=== PATIENT | female | born 1955 | race African-American/Black ===

== ENCOUNTER 2021-04-18 17:32 | Emergency (ER) | payer OTHER, SELFPAY ==
[2021-04-18] VITALS (9 sets, daily range): BP systolic 111–156; BP diastolic 62–75; PULSE 76–77; RESP 18–23; O2SAT 92–96
--- NOTE | 2021-04-18 17:44 | PC.NURSE ---
patient currently at baseline. denies any complaints. denies SOB. states that she does not like her [facility]mate at the [facility] and does not want to be there or talk to her. room air at this time. rapid COVID test [employer], negative
--- NOTE | 2021-04-18 19:24 | ED.GENADULT ---
HPI - General Adult General Chief complaint: Unspecified Stated complaint: sent per [facility] staff for altered - resolved Time Seen by Provider: 04/18/21 18:52 Source: patient and RN notes reviewed History of Present Illness HPI narrative: 66-year-old female presented to the emergency department from a local care facility for evaluation. Facility was concerned that she was hypoxic. Patient denies any chest pain or shortness of breath. Patient states that her only complaint is her roommate and she wanted to come to the emergency department to get away from her roommate. Review of Systems Review of Systems: CONSTITUTIONAL: Denies fever, chills, or sweats. EYES: Denies visual changes, redness, or discharge. ENT: Denies rhinorrhea, congestion, sore throat, or otalgia. CARDIOVASCULAR: Denies chest pain, palpitations, or edema. RESPIRATORY: Denies cough or dyspnea. GASTROINTESTINAL: Denies abdominal pain, nausea, vomiting, or diarrhea. GENITOURINARY: Denies dysuria or hematuria. SKIN: Denies rash or itching. MUSCULOSKELETAL: Denies back pain, joint pain, or myalgia. NEUROLOGIC: Denies headache, numbness, or weakness. PSYCHIATRIC: Denies anxiety or depression. [facility] Family History Family History (Updated 09/30/14 @ 09:49 by DOCTOR UNKNOWN) Mother Family history of type 2 diabetes mellitus, Onset Age: 55 Patient's mother is Father Patient's father is , Onset Age: 58 Acute myocardial infarction, Onset Age: 58 Social History Social History Smoking status: Never smoker Second hand tobacco smoke exposure: No Alcohol intake: never Exam Narrative: APPEARANCE: Well appearing, no pain, no distress, well-nourished. HEAD: normocephalic, atraumatic. EYES: PERRLA/EOMI, conjunctivae clear. NOSE: Normal no drainage EARS:TMS clear with good light reflex. THROAT: Pharynx clear, no exudate. NECK: Supple. No adenopathy, no masses. RESPIRATORY: Airway patent, respirations nonlabored. Clear to auscultation bilaterally, no rales, rhonchi, wheezing. CARDIOVASCULAR: Regular rate and rhythm without murmurs rubs or gallops. ABDOMINAL: Soft, nontender, nondistended, normal bowel sounds MUSCULOSKELETAL: Moves all extremities. Strength/ROM intact NEURO: Alert. Cranial nerves II through XII intact. Good coordination SKIN: Warm, dry. Normal Color PSYCHIATRIC: Normal affect/mood. Course Course Emergency Course: Patient continues to deny any complaint other than her roommate. Patient was discharged back to facility. Vital Signs Vital signs: Vital Signs Pulse Rate 77 04/18/21 17:37 Respiratory Rate 19 04/18/21 17:37 Pulse Oximetry 95 04/18/21 17:37 Pulse Rate 76 04/18/21 20:50 Respiratory Rate 18 04/18/21 20:50 Blood Pressure 156/75 H 04/18/21 20:50 Pulse Oximetry 96 04/18/21 20:50 Medical Decision Making Vital Signs Vital Signs: Vital Signs Pulse Rate 77 04/18/21 17:37 Respiratory Rate 19 04/18/21 17:37 Pulse Oximetry 95 04/18/21 17:37 Pulse Rate 76 04/18/21 20:50 Respiratory Rate 18 04/18/21 20:50 Blood Pressure 156/75 H 04/18/21 20:50 Pulse Oximetry 96 04/18/21 20:50 Discharge Plan Discharge Clinical Impression: Examination, No complaints, Dementia Patient Disposition: Home, Self-Care Condition: Stable Instructions: Antibiotic Form Additional Instructions: Have close follow-up with your primary care physician. Prescriptions: No Action oxycodone [Roxicodone] 5 mg tablet 5 mg PO Q4H PRN (Reason: pain) Qty: 30 RF: 0 Follow-up/Referrals: PHYSICIAN NOT ON STAFF,NONSTAFF [Primary Care Provider] -
--- NOTE | 2021-04-18 20:02 | PC.NURSE ---
EMS ETA 2029.
--- NOTE | 2021-04-18 22:32 | PC.NURSE ---
arrived at 2039. EN
== END 2021-04-18 20:51 ==
PROVIDERS: Emergency Provider Emergency Medicine
DX: F03.90 Unspecified dementia, unspecified severity, without behavioral disturbance, psychotic disturbance, mood disturbance, and anxiety (principal)
CPT/HCPCS: 99281

== ENCOUNTER 2021-12-05 18:07 | Observation (INO) | payer OTHER, SELFPAY ==
--- NOTE | ~2021-12-05 | XR_ITS ---
XR chest 1V portable DATE: 12/05/2021 18:37 INDICATION: Dyspnea TECHNIQUE: Portable supine AP chest on 12/05/2021 at 1835 hours COMPARISON: None FINDINGS: Cardiomegaly. There is pulmonary vascular congestion and redistribution. There is prominenc e of the minor fissure consistent with subpleural edema. There are bilateral patellae central and low er lung zone infiltrates suggesting pulmonary edema. Pneumonia is not excluded. No pneumothorax. Aortic arch and descending thoracic aortic calcification. Surgical clips, left axillary region. Dextroscoliosis and degenerative spurring of the thoracic spine. Diffuse osteopenia. IMPRESSION: Cardiomegaly, congestive heart failure, pulmonary edema Reviewed, dictated and finalized at location A.
[2021-12-05 18:04] VITALS: BP 197/73; PULSE 94; RESP 16; TEMP 36.3; O2SAT 96
--- NOTE | 2021-12-05 18:09 | ECG_ITS ---
Measurements Intervals [place] Rate: 94 P: 63 MA: 214 QRS: -18 QRSD: 85 T: 102 QT: 333 QTc: 416 Interpretive Statements SINUS RHYTHM WITH FIRST DEGREE AV BLOCK LOW QRS VOLTAGE IN LIMB LEADS ANTEROSEPTAL INFARCT, AGE INDETERMINATE BORDERLINE ST-T WAVE ABNORMALITY- HIGH LATERAL LEADS BASELINE ARTIFACT- I, II, III, AVR, AVL, AVF, V6 ABNORMAL ECG NO PREVIOUS ECG AVAILABLE FOR COMPARISON Electronically Signed On 12-05-2021 18:55:42 CDT by Rowdy Law D.O.
--- NOTE | 2021-12-05 18:56 | PC.NURSE ---
multiple attempts at IV access without success. EDP Zych at bedside for ultrasound IV placement.
--- NOTE | 2021-12-05 19:18 | ED.GENADULT ---
HPI - General Adult General Chief complaint: Shortness of Breath/Dyspnea Stated complaint: shortness of breath and left arm edema Time Seen by Provider: 12/05/21 18:10 History of Present Illness HPI narrative: This is a 66-year-old prison patient coming to ED with shortness of breath. Patient says starting yesterday she has been having difficulty reading. It is worse when she lays flat. She has noticed that she has swelling of her stumps and her arms bilaterally. Patient states she has no history of congestive heart failure. Patient denies fever, chills, chest pain, Abdominal pain, urinary symptoms or symptoms. Related Data Allergies Allergy/AdvReac Type Severity Reaction Status Date / Time No Known Allergies Allergy Verified 12/05/21 18:18 Review of Systems Review of Systems: CONSTITUTIONAL: Denies night sweats. EYES: No eye pain ENT: Denies rhinorrhea CARDIOVASCULAR: Denies palpitations RESPIRATORY: Denies hemoptysis GASTROINTESTINAL: Denies hematemesis GENITOURINARY: Denies hematuria. SKIN: Denies rash MUSCULOSKELETAL: Denies myalgia. NEUROLOGIC: Denies weakness. PSYCHIATRIC: Denies delusions PMFSH Past Medical History Medical History Diabetes GERD (gastroesophageal reflux disease) HTN (hypertension) Psychiatric disorder Surgical History Surgical History S/P AKA (above knee amputation) bilateral Family History Family History Mother Family history of type 2 diabetes mellitus, Onset Age: 55 Patient's mother is Father Patient's father is , Onset Age: 58 Acute myocardial infarction, Onset Age: 58 Social History Social History Smoking status: Never smoker Second hand tobacco smoke exposure: No Alcohol intake: never Exam Narrative: APPEARANCE: No apparent distress. Head atraumatic. EYES: PERRLA/EOMI, NOSE: Normal no drainage NECK: Supple, Trachea midline RESPIRATORY: bibasilar rales. Patient is hypoxic on room air and is requiring 4 L nasal cannula. CARDIOVASCULAR: S1S2 appreciated , edema both stumps, pitting edema of the left arm and in the hips. ABDOMINAL: Obese, distended, nontender with no guarding or rebound MUSCULOSKELETAl: Bilateral AKAs. NEURO: Alert. Moving 4/4 extremities SKIN:: Warm, dry. Normal color PSYCHIATRIC: Normal affect Course Vital Signs Vital signs: Vital Signs Temperature 97.4 F L 12/05/21 18:04 Pulse Rate 94 12/05/21 18:04 Respiratory Rate 16 12/05/21 18:04 Blood Pressure 197/73 H 12/05/21 18:04 Pulse Oximetry 96 12/05/21 18:04 Oxygen Delivery Room Air 12/05/21 18:04 Temperature 97.4 F L 12/05/21 18:04 Pulse Rate 94 12/05/21 18:04 Respiratory Rate 16 12/05/21 18:04 Blood Pressure 197/73 H 12/05/21 18:04 Pulse Oximetry 96 12/05/21 18:04 Oxygen Delivery Room Air 12/05/21 18:04 Medical Decision Making MDM Narrative Medical decision making narrative: this is a 66-year-old female presenting to ED with difficulty breathing. She is hypoxic on room air and is requiring supplemental oxygen to maintain saturations. Differential include heart failure, COPD, ACS, pneumonia. I performed a point of care echo which revealed reduced ejection fraction time estimated 20-30%. R atrium is dilated indicating chronically elevated LV filling pressures. She has a noncircumferential pericardial effusion. Aortic valve may have had sclerosis versus low ejection fraction. IVC was plethoric. My overall impression is HFrEF. lab work was significant for a potassium of 3.2. This will be repleted orally. [place] BNP was [address]00. Patient been given 80 mg of IV Lasix. Troponin was negative. Chest x-ray showed cardiomegaly with pulmonary vascular congestion.
--- NOTE | 2021-12-05 19:21 | PC.NURSE ---
Report received from SPENCER Hutchins. Assumed care of patient at this time.
--- NOTE | 2021-12-05 19:26 | PC.NURSE ---
Patients bedside glucose is 186.
[2021-12-05 19:27] LABS: Glucose Point of Care 189 mg/dl (65-105)
[2021-12-05] MEDS: FUROSEMIDE INJ 100 MG/10 ML VIAL 80 MG IV PUSH (19:30)
--- NOTE | 2021-12-05 19:30 | PC.NURSE ---
Another RN attempting to place IV via US.
[2021-12-05 19:31] VITALS: O2SAT 97
[2021-12-05 19:32] VITALS: PULSE 82; O2SAT 97
[2021-12-05 19:39] LABS: Basophils Absolute Auto 0.1 K/mm3 (0.0-0.1); Basophils Percent Auto 0.8 % (0.2-1.2); Eosinophils Absolute Auto 0.2 K/mm3 (0-0.3); Eosinophils Percent Auto 3.1 % (0-4.4); Hematocrit 36.3 % (37.0-47.0); Hemoglobin 11.4 g/dL (12.0-15.0); Immature Granulocyte Absolute 0.02 K/mm3 (0.00-0.031); Immature Granulocyte Percent A 0.3 % (0-0.5); Lymphocytes Absolute Auto 1.17 K/mm3 (0.9-3.2); Lymphocytes Percent Auto 19.1 % (18.3-44.2); Mean Corpuscular HGB Conc 31.4 g/dl (32-36); Mean Corpuscular Hemoglobin 27.9 pg (26-34); Mean Corpuscular Volume 88.8 fl (80-100); Mean Platelet Volume 9.8 fl (7.4-10.4); Monocytes Absolute Auto 0.3 K/mm3 (0.1-0.6); Monocytes Percent Auto 5.6 % (2.6-8.5); Neutrophils Absolute Auto 4.3 K/mm3 (1.3-6.7); Neutrophils Percent Auto 71.1 % (45.5-73.1); Platelet Count Result 250 k/mm3 (150-375); Red Blood Count 4.09 M/mm3 (4.2-5.4); White Blood Count 6.1 K/mm3 (4.5-10.0)
[2021-12-05 19:55] LABS: Alanine Aminotransferase 17 U/L (6-35); Alkaline Phosphatase 42 U/L (38-126); Anion Gap 11 mmol/L (8-16); Aspartate Amino Transferase 26 U/L (14-36); Bilirubin,Total 0.7 mg/dL (0.2-1.3); Blood Urea Nitrogen 15 mg/dL (7-17); Calcium 9.1 mg/dL (8.4-10.2); Carbon Dioxide 31 mmol/L (22-30); Chloride 100 mmol/L (98-107); Estimated CRCL calculation 64 ml/min; Estimated Glomerular Filt Rate > 60; Glucose 187 mg/dL (65-110); Potassium 3.2 mmol/L (3.4-5.0); Sodium 142 mmol/L (137-145)
[2021-12-05 20:01] LABS: Troponin I < 0.012 ng/mL (0.000-0.034)
--- NOTE | 2021-12-05 20:03 | PM.IMHP ---
H&P: HPI History of Present Illness Date/Time: 12/05/21 20:04 Chief Complaint: swelling Narrative: This is a 66-year-old female with past medical history significant for type 2 diabetes mellitus, hypertension, gastroesophageal reflux disease, peripheral vascular disease status post bilateral AKA. Patient resides at custodial facility. patient was brought for evaluation to our emergency room due to bilateral lower stumps swelling overall generalized swelling, shortness of breath, patient denies any fevers, rigors, chills, cough, sputum production, no chest pain. preliminary workup was significant for brain natriuretic peptide up wards 12,000, troponins x1 0.012, hemoglobin of 11 hematocrit 36, potassium 3.2. a chest x-ray was reported as: IMPRESSION: Cardiomegaly, congestive heart failure, pulmonary edema? patient is been admitted for further evaluation management and treatment. Review of Systems Review of Systems: Generalized swelling Constitutional: Constitutional: Denies chills, Denies fever(s), Denies malaise and Denies night sweats Eyes: Eyes: Denies change in vision ENT: Denies dysphagia, Denies vertigo, Denies dizziness and Denies odynophagia Cardiovascular: Cardiovascular: Denies chest pain, Reports edema, Denies irregular heart rhythm, Denies palpitations and Reports dyspnea Respiratory: Respiratory: Denies chest congestion, Denies cough, Denies excessive phlegm production, Denies pain on inspiration, Denies dyspnea and Denies dyspnea on exertion Gastrointestinal: Gastrointestinal: Denies abdominal pain, Denies dyspepsia, Denies heartburn, Denies diarrhea, Denies nausea and Denies vomiting Genitourinary: Genitourinary: Denies dysuria Musculoskeletal: Musculoskeletal: Reports other ( swelling) Integumentary/Breasts: Skin/Breast: Denies rash Neurologic: Denies vertigo, Denies dizziness, Denies focal weakness and Denies Sensory deficit (Neuro) Psychiatric: Psychiatric: Reports no additional psychiatric complaints and Reports as per HPI Endocrine: Endocrine: Denies cold intolerance, Denies flushing, Denies heat intolerance, Denies polyphagia, Denies polydipsia and Denies palpitations Hematologic/Lymphatic: Hematologic/Lymphatic: Reports no additional hematologic/lymphatic complaints and Reports as per HPI Allergic/Immunologic: Allergic/Immunologic: Reports no additional allergic/immunologic complaints and Reports as per HPI [facility] Past Medical History Medical History Diabetes GERD (gastroesophageal reflux disease) HTN (hypertension) Psychiatric disorder Surgical History Surgical History S/P AKA (above knee amputation) bilateral Family History Family History Mother Family history of type 2 diabetes mellitus, Onset Age: 55 Patient's mother is Father Patient's father is , Onset Age: 58 Acute myocardial infarction, Onset Age: 58 Social History Social History Smoking status: Never smoker Second hand tobacco smoke exposure: No Alcohol intake: never Substance use: never Spiritual care concerns: No Meds Home Medications and Allergies Home Medications Medication Instructions Recorded Confirmed Type Maalox Plus 30 ml PO Q8H PRN bloating 12/05/21 12/05/21 History acetaminophen 325 mg capsule 650 mg PO Q6H PRN Pain (Scale 12/05/21 12/05/21 History (Tylenol) Score 1-3) amlodipine 10 mg tablet 10 mg PO DAILY 12/05/21 12/05/21 History atorvastatin 40 mg tablet 40 mg PO DAILY 12/05/21 12/05/21 History bisacodyl 10 mg rectal suppository 10 mg RECTAL PRN PRN Constipation 12/05/21 12/05/21 History gabapentin 400 mg capsule 400 mg PO BID 12/05/21 12/05/21 History glimepiride 1 mg tablet 1 mg PO DAILY 12/05/21 12/05/21 History insuli
[2021-12-05 20:06] VITALS: BP 201/66; PULSE 88; RESP 22; O2SAT 100
[2021-12-05 20:07] LABS: NT Pro B Type Natriuretic Pept 12100 pg/mL (5-100)
[2021-12-05] MEDS: POTASSIUM CHLORIDE 20 MEQ TABLET 40 MEQ PO (20:43)
[2021-12-05 20:50] LABS: SARS-CoV-2 RNA PCR Negative
[2021-12-05 20:51] VITALS: BP 203/62; PULSE 83; RESP 20; TEMP 36.6; O2SAT 96
[2021-12-05 21:15] VITALS: BP 146/72; PULSE 84; RESP 17; TEMP 36.6; O2SAT 97; BMI 30.8
[2021-12-06] VITALS (11 sets, daily range): BP systolic 131–148; BP diastolic 64–81; PULSE 72–92; RESP 16–18; TEMP 35.7–36.8; O2SAT 94–99
--- NOTE | 2021-12-06 | ECHO_ITS ---
Patient Info Name: Iris Pascual Age: 66 years : 1955 Gender: Female Ht: 62 in Wt: 168 lbs BSA: 1.85 m2 HR: 87 bpm BP: 148 / 81 mmHg Heart Rhythm: Sinus Rhythm Exam Date: 12/06/2021 11:11 AM Exam Location: [facility] Pulmonary Exam Room: 256 Patient Status: Inpatient Admit Date: 12/06/2021 Staff Ordering Physician: Denisse Mcgee MD [employer]: Lauren Kelly RDCS Attending Provider: Denisse Mcgee MD Referring Physician: Arely ALAS; Exam Type: CA echo dop color flow w con Study Info Indications R60.0 - Localized edema Complete two-dimensional, color flow and Doppler transthoracic echocardiogram is performed with contrast to opacify the left ventricle and to improve the deliniation of the left ventricle endocardial borders. Contrast/Agitated Saline Contrast/Ag. Saline: Definity Amount: 2.00 ml Administered By: Lauren Kelly [facility] Existing IV Access: Yes IV Access Condition: patent with no signs of infiltration Summary 1. Definity contrast inject improve visualization. 2. Left ventricular chamber dimension is moderately enlarged. 3. Left ventricular systolic function is severely reduced, estimated at 20-25%. 4. Left atrial chamber dimension is moderately enlarged. 5. There is mild aortic valve sclerosis. 6. There is trace mitral valve regurgitation. Left Ventricle Left ventricular chamber dimension is moderately enlarged. Left ventricular systolic function is severely reduced, estimated at 20-25%. The left ventricular diastolic function is grade II diastolic dysfunction. Definity contrast inject improve visualization. Right Ventricle Right ventricular chamber dimension is normal. Left Atria Left atrial chamber dimension is moderately enlarged. Right Atria Right atrial chamber dimension is mildly enlarged. Aortic Valve The aortic valve is trileaflet. There is mild aortic valve sclerosis. Pulmonic Valve The pulmonic valve is not well visualized. Mitral Valve The mitral valve has normal leaflets. There is trace mitral valve regurgitation. Tricuspid Valve The tricuspid valve leaflets are normal. Pericardium/Pleural The pericardium appears normal. There is small pericardial effusion. Aorta The aortic root size at the sinus of Valsalva is normal. Left Ventricular Outflow Tract Name Value Normal LVOT 2D LVOT Diameter 2.01 cm LVOT Doppler LVOT Peak Gradient 5 mmHg LVOT Mean Gradient 2 mmHg LVOT VTI 19.67 cm LVOT VTI/AV VTI Ratio 0.75 LVOT Stroke Volume 62.54 ml LVOT CO 13.79 l/min LVOT CI 7.44 L/min/m2 Pulmonic Valve Name Value Normal PV Doppler
[2021-12-06 05:45] LABS: Glucose Point of Care 159 mg/dl (65-105)
[2021-12-06] MEDS: LEVOTHYROXINE SODIUM 100 MCG TABLET PO (06:22)
--- NOTE | 2021-12-06 07:26 | PM.IMPN ---
Progress Note: A&P Assessment and Plan (1) Acute heart failure: Code(s): I50.9 - Heart failure, unspecified Status: Acute Assessment and Plan: Echo with severely reduced EF at 20-25%, grade II diastolic dysfunction. -Furosemide 40 mg IV BID -BMP 1900 -Appreciate Cardiology recommendations (2) HTN (hypertension): Code(s): I10 - Essential (primary) hypertension Status: Acute Assessment and Plan: Takes amlodipine at home. Continue home medication. Will monitor. (3) Acute hypokalemia: Code(s): E87.6 - Hypokalemia Status: Acute Assessment and Plan: Resolved. (4) S/P AKA (above knee amputation) bilateral: Code(s): Z89.611 - Acquired absence of right leg above knee; Z89.612 - Acquired absence of left leg above knee Status: Acute Assessment and Plan: For PAD. (5) GERD (gastroesophageal reflux disease): Code(s): K21.9 - Gastro-esophageal reflux disease without esophagitis Status: Acute Assessment and Plan: PPI as needed (6) Diabetes: Code(s): E11.9 - Type 2 diabetes mellitus without complications Status: Acute Assessment and Plan: Hold glimepiride. -SSI -POC glucose. Plan Full Code Enoxaparin Subjective Date/time seen: 12/06/21 07:26 Patient says she had no idea she had heart problems. She says her father had heart problems. She says she feels better this morning and feels less short of breath. She says she may not go back to the assisted and may go home to live with her daughter who lives nearby. Review of Systems Cardiovascular: Cardiovascular: Denies chest pain Respiratory: Respiratory: Reports dyspnea Exam Narrative: GENERAL: NAD, cooperative HEENT: Normocephalic, atraumatic, anicteric, nares clear, oropharynx moist and clear, edentulous NECK:Supple CV: Normal S1, S2, RRR, No MRG RESP: CTAB, Normal work of breathing. Abdomen: Soft, non-tender, non-distended, +BS EXTREMITIES: bilateral above the knee amputation SKIN: warm, dry and intact. NEURO: CN 2-12 grossly intact. Objective Data Vital Signs Vital Signs: Vital Signs - 24 hr 12/05/21 18:04 12/05/21 19:32 12/05/21 19:31 Temperature 36.3 C L Pulse Rate 94 82 Respiratory Rate 16 Blood Pressure 197/73 H Pulse Oximetry 96 97 Oxygen Delivery Room Air Nasal Cannula Oxygen Flow Rate 4 12/05/21 19:32 12/05/21 20:06 12/05/21 20:51 Temperature 36.6 C Pulse Rate 88 83 Respiratory Rate 22 H 20 Blood Pressure 201/66 H 203/62 H Pulse Oximetry 97 100 96 Oxygen Delivery Nasal Cannula Oxygen Flow Rate 4 12/05/21 21:15 12/05/21 22:00 12/06/21 03:46 Temperature 36.6 C 36.3 C L Pulse Rate 84 83 Respiratory Rate 17 16 Blood Pressure 146/72 H 148/81 H Pulse Oximetry 97 95 Oxygen Delivery Room Air Oxygen Flow Rate 12/06/21 04:00 Temperature Pulse Rate 87 Respiratory Rate Blood Pressure Pulse Oximetry Oxygen Delivery Oxygen Flow Rate Intake/Output Intake/Output: Intake & Output 12/03/21 12/04/21 12/05/21 12/06/21 23:59 23:59 23:59 23:59 Intake Total 100 Output Total 2300 1800 Balance -2300 -1700 Meds/Results Medications: Active Medications Generic Name Dose Route Start Last Admin Trade Name Freq PRN Reason Stop Dose Admin Acetaminophen 650 mg 12/06/21 00:55 Acetaminophen 325 Mg Tablet PO Q6H PRN Pain (Scale Score 1-3) Al Hydrox/Mg Hydrox/Simethicone 30 ml 12/06/21 01:03 Mag Hydrox/Al Hydrox/Simeth 30 Ml Udc PO Q8H PRN bloating Amlodipine Besylate 10 mg 12/06/21 09:00 Amlodipine Besylate 5 Mg Tablet PO DAILY [facility] Atorvastatin Calcium 40 mg 12/06/21 09:00 Atorvastatin 40 Mg Tablet PO DAILY [facility] Bisacodyl 10 mg 12/06/21 00:55 Bisacodyl 10 Mg Suppository RECTAL PRN PRN Constipation Enoxaparin Sodium 40 mg 12/06/21 09:00 Enoxaparin
[2021-12-06 08:26] LABS: Anion Gap 12 mmol/L (8-16); Blood Urea Nitrogen 14 mg/dL (7-17); Calcium 9.1 mg/dL (8.4-10.2); Carbon Dioxide 32 mmol/L (22-30); Chloride 97 mmol/L (98-107); Estimated CRCL calculation 75 ml/min; Estimated Glomerular Filt Rate > 60; Glucose 174 mg/dL (65-110); Magnesium 1.5 mg/dL (1.6-2.3); Potassium 3.4 mmol/L (3.4-5.0); Sodium 141 mmol/L (137-145)
[2021-12-06 08:33] LABS: Glucose Point of Care 169 mg/dl (65-105)
[2021-12-06] MEDS: INSULIN ASPART (*BKC) 100 UNITS/ML SUB-Q ×2 (09:02→11:58)
[2021-12-06] MEDS: PANTOPRAZOLE 40 MG TABLET PO (09:04)
[2021-12-06] MEDS: ENOXAPARIN 40 MG/0.4 ML SYRINGE SUB-Q (09:04)
[2021-12-06] MEDS: FUROSEMIDE INJ 40 MG/4 ML VIAL IV PUSH ×2 (09:04→16:42)
[2021-12-06] MEDS: ATORVASTATIN 40 MG TABLET PO (09:04)
[2021-12-06] MEDS: amLODIPine BESYLATE 5 MG TABLET 10 MG PO (09:04)
[2021-12-06] MEDS: GABAPENTIN 400 MG CAPSULE PO ×2 (09:05→16:42)
--- NOTE | 2021-12-06 11:32 | PM.CNCAR ---
Assessment and Plan Assessment and plan (1) Acute heart failure: Code(s): I50.9 - Heart failure, unspecified Status: Acute (2) HTN (hypertension): Code(s): I10 - Essential (primary) hypertension Status: Acute (3) Diabetes: Code(s): E11.9 - Type 2 diabetes mellitus without complications Status: Acute (4) GERD (gastroesophageal reflux disease): Code(s): K21.9 - Gastro-esophageal reflux disease without esophagitis Status: Acute (5) S/P AKA (above knee amputation) bilateral: Code(s): Z89.611 - Acquired absence of right leg above knee; Z89.612 - Acquired absence of left leg above knee Status: Acute Plan Echo ordered, will follow up on results. Continue with intermittent IV diuresis to achieve euvolemia Discontinue Amlodipine, start Losartan instead. No beta blockers at this time given acute CHF exacerbation and not previously on beta-blockers. Continue statin. Check TSH level History of Present Illness History of Present Illness Consult date/time: 12/06/21 11:32 Requesting physician: Priscilla Sandoval MD Consult reason: congestive heart failure Reason For Visit: new chf Narrative: Patient is a 66-year-old female with a history of breast cancer s/p surgery/chemoradiation, bilateral AKA, type 2 diabetes, hypertension, GERD who presented from her [facility] with shortness of breath that began a few days ago. Also reports swelling in her lower stumps. No chest pain. Denies any prior cardiac history or past cardiac workup. Found with significantly elevated BNP, troponin negative x 1. Admitted for heart failure exacerbation with new diagnosis of heart failure. Review of Systems Review of Systems: All systems reviewed & are unremarkable except as noted in HPI and below (HPI) [facility] Past Medical History Medical History Diabetes GERD (gastroesophageal reflux disease) HTN (hypertension) Psychiatric disorder Surgical History Surgical History S/P AKA (above knee amputation) bilateral Family History Family History Mother Family history of type 2 diabetes mellitus, Onset Age: 55 Patient's mother is Father Patient's father is , Onset Age: 58 Acute myocardial infarction, Onset Age: 58 Social History Social History Smoking status: Never smoker Second hand tobacco smoke exposure: No Alcohol intake: never Substance use: never Spiritual care concerns: No Meds Home Medications and Allergies Home Medications Medication Instructions Recorded Confirmed Type Maalox Plus 30 ml PO Q8H PRN bloating 12/05/21 12/05/21 History acetaminophen 325 mg capsule 650 mg PO Q6H PRN Pain (Scale 12/05/21 12/05/21 History (Tylenol) Score 1-3) amlodipine 10 mg tablet 10 mg PO DAILY 12/05/21 12/05/21 History atorvastatin 40 mg tablet 40 mg PO DAILY 12/05/21 12/05/21 History bisacodyl 10 mg rectal suppository 10 mg RECTAL PRN PRN Constipation 12/05/21 12/05/21 History gabapentin 400 mg capsule 400 mg PO BID 12/05/21 12/05/21 History glimepiride 1 mg tablet 1 mg PO DAILY 12/05/21 12/05/21 History insulin aspart U-100 100 unit/mL See Rx Instructions .Route .COMPLEX 12/05/21 12/05/21 History subcutaneous solution (Novolog U-100 Insulin aspart) levothyroxine 100 mcg tablet 100 mcg PO DAILY 12/05/21 12/05/21 History loperamide 2 mg tablet (Imodium 2 mg PO PRN PRN Diarrhea 12/05/21 12/05/21 History A-D) magnesium citrate 300 ml PO DAILY PRN Constipation 12/05/21 12/05/21 History ondansetron HCl 4 mg tablet 4 mg PO Q8H PRN Nausea 12/05/21 12/05/21 History oxycodone 5 mg tablet (Roxicodone) 5 mg PO Q4H PRN Pain (Scale Score 12/05/21 12/05/21 History 4-6) pantoprazole 40 mg tablet,delayed 40 mg PO DAILY 12/05/21 12/05/21 His
[2021-12-06] MEDS: PERFLUTREN LIPID MICROSPHERES 1.5 ML VIAL DILUTED TO 10 ML TOTAL VOLUME IV PUSH (11:50)
[2021-12-06 11:56] LABS: Glucose Point of Care 177 mg/dl (65-105)
[2021-12-06] MEDS: MAGNESIUM SULF 1 GM/D5W 100 ML 1 GM/100 ML BAG IVPB (15:30)
[2021-12-06 17:09] LABS: Glucose Point of Care 147 mg/dl (65-105)
[2021-12-06 23:00] LABS: Total Triiodothyronine (T3) 0.62 NG/ML (0.97-1.69)
[2021-12-07] VITALS (11 sets, daily range): BP systolic 110–131; BP diastolic 56–63; PULSE 66–86; RESP 16–21; TEMP 35.8–36.8; O2SAT 93–100
[2021-12-07] MEDS: LEVOTHYROXINE SODIUM 100 MCG TABLET PO (05:31)
[2021-12-07 05:53] LABS: Anion Gap 7 mmol/L (8-16); Blood Urea Nitrogen 17 mg/dL (7-17); Calcium 8.6 mg/dL (8.4-10.2); Carbon Dioxide 34 mmol/L (22-30); Chloride 97 mmol/L (98-107); Estimated CRCL calculation 65 ml/min; Estimated Glomerular Filt Rate > 60; Glucose 130 mg/dL (65-110); Potassium 2.8 mmol/L (3.4-5.0); Sodium 138 mmol/L (137-145)
[2021-12-07] MEDS: POTASSIUM CHLORIDE 20 MEQ TABLET.ER 40 MEQ PO ×2 (06:00→18:06)
--- NOTE | 2021-12-07 06:25 | PC.NURSE ---
Order received by Dr Mcgee to give BID 0800 potassium early for critical potassium of 2.8
--- NOTE | 2021-12-07 07:41 | PM.IMPN ---
Progress Note: A&P Assessment and Plan (1) Acute heart failure: Code(s): I50.9 - Heart failure, unspecified Status: Acute Assessment and Plan: Echo with severely reduced EF at 20-25%, grade II diastolic dysfunction. -Furosemide 40 mg IV BID -BMP 1500 today -Appreciate Cardiology recommendations (2) HTN (hypertension): Code(s): I10 - Essential (primary) hypertension Status: Acute Assessment and Plan: Amlodipine discontinued as Cardiology recommended losartan. Started losartan 25 mg po daily today. Will monitor. (3) Acute hypokalemia: Code(s): E87.6 - Hypokalemia Status: Acute Assessment and Plan: Resolved. (4) S/P AKA (above knee amputation) bilateral: Code(s): Z89.611 - Acquired absence of right leg above knee; Z89.612 - Acquired absence of left leg above knee Status: Acute Assessment and Plan: For PAD. (5) GERD (gastroesophageal reflux disease): Code(s): K21.9 - Gastro-esophageal reflux disease without esophagitis Status: Acute Assessment and Plan: PPI as needed (6) Diabetes: Code(s): E11.9 - Type 2 diabetes mellitus without complications Status: Acute Assessment and Plan: Hold glimepiride. -SSI -POC glucose. Plan Full Code Enoxaparin Subjective Date/time seen: 12/07/21 07:41 Patient says she feels better this morning. Says her breathing feels fine. Says she may not be able to go back to her daughter's house as her daughter says she does not have anyone to care for her. Review of Systems Respiratory: Respiratory: Denies dyspnea Exam Narrative: GENERAL: NAD, cooperative HEENT: Normocephalic, atraumatic, anicteric, nares clear, oropharynx moist and clear, edentulous NECK:Supple CV: Normal S1, S2, RRR, No MRG RESP: CTAB, Normal work of breathing. Abdomen: Soft, non-tender, non-distended, +BS EXTREMITIES: bilateral above the knee amputation SKIN: warm, dry and intact. NEURO: CN 2-12 grossly intact. Objective Data Vital Signs Vital Signs: Vital Signs - 24 hr 12/06/21 08:00 12/06/21 09:40 12/06/21 09:05 Temperature Pulse Rate 90 Respiratory Rate 16 Blood Pressure Pulse Oximetry 99 98 Oxygen Delivery Room Air Room Air 12/06/21 12:00 12/06/21 14:00 12/06/21 16:00 Temperature 36.8 C Pulse Rate 92 83 77 Respiratory Rate 18 Blood Pressure 131/69 Pulse Oximetry 96 Oxygen Delivery 12/06/21 20:21 12/06/21 21:01 12/06/21 19:30 Temperature 35.7 C L Pulse Rate 77 Respiratory Rate 18 Blood Pressure 133/64 Pulse Oximetry 94 95 Oxygen Delivery Room Air Room Air 12/06/21 20:00 12/07/21 00:00 12/07/21 04:00 Temperature Pulse Rate 72 69 66 Respiratory Rate Blood Pressure Pulse Oximetry Oxygen Delivery 12/07/21 04:56 Temperature 35.8 C L Pulse Rate 71 Respiratory Rate 18 Blood Pressure 131/62 Pulse Oximetry 93 Oxygen Delivery Intake/Output Intake/Output: Intake & Output 12/04/21 12/05/21 12/06/21 12/07/21 23:59 23:59 23:59 23:59 Intake Total 1040 120 Output Total 2300 4800 800 Balance -2300 -3760 -680 Meds/Results Medications: Active Medications Generic Name Dose Route Start Last Admin Trade Name Freq PRN Reason Stop Dose Admin Acetaminophen 650 mg 12/06/21 00:55 Acetaminophen 325 Mg Tablet PO Q6H PRN Pain (Scale Score 1-3) Al Hydrox/Mg Hydrox/Simethicone 30 ml 12/06/21 01:03 Mag Hydrox/Al Hydrox/Simeth 30 Ml Udc PO Q8H PRN bloating Atorvastatin Calcium 40 mg 12/06/21 09:00 12/06/21 09:04 Atorvastatin 40 Mg Tablet PO 40 mg DAILY KASIE Administration Bisacodyl 10 mg 12/06/21 00:55 Bisacodyl 10 Mg Suppository RECTAL PRN PRN Constipation Enoxaparin Sodium 40 mg 12/06/21 09:00 12/06/21 09:04 Enoxaparin 40 Mg/0.4 Ml Syringe SUB-Q 40 mg DAILY KASIE Administration Furosemi
[2021-12-07] MEDS: POTASSIUM CHLORIDE INJ 40 MEQ in SODIUM CHLORIDE 0.9% IV 500 ML 130 MEQ IVPB (08:03)
--- NOTE | 2021-12-07 08:30 | PC.NURSE ---
will give IV magnesium for 0800 after IV potassium finishes
[2021-12-07 08:44] LABS: Glucose Point of Care 161 mg/dl (65-105)
[2021-12-07] MEDS: ENOXAPARIN 40 MG/0.4 ML SYRINGE SUB-Q (09:55)
[2021-12-07] MEDS: PANTOPRAZOLE 40 MG TABLET PO (09:55)
[2021-12-07] MEDS: LOSARTAN POTASSIUM 25 MG TABLET PO (09:55)
[2021-12-07] MEDS: ATORVASTATIN 40 MG TABLET PO (09:55)
[2021-12-07] MEDS: GABAPENTIN 400 MG CAPSULE PO ×2 (09:55→18:06)
[2021-12-07] MEDS: FUROSEMIDE INJ 40 MG/4 ML VIAL IV PUSH ×2 (09:56→18:06)
[2021-12-07 11:48] LABS: Glucose Point of Care 212 mg/dl (65-105)
[2021-12-07] MEDS: INSULIN ASPART (*BKC) 100 UNITS/ML SUB-Q (12:08)
[2021-12-07] MEDS: MAGNESIUM SULF 1 GM/D5W 100 ML 1 GM/100 ML BAG IVPB (13:02)
--- NOTE | 2021-12-07 14:05 | PM.PNCARD ---
Progress Note: A&P Assessment and Plan (1) Acute heart failure: Code(s): I50.9 - Heart failure, unspecified Status: Acute (2) HTN (hypertension): Code(s): I10 - Essential (primary) hypertension Status: Acute (3) Diabetes: Code(s): E11.9 - Type 2 diabetes mellitus without complications Status: Acute (4) GERD (gastroesophageal reflux disease): Code(s): K21.9 - Gastro-esophageal reflux disease without esophagitis Status: Acute (5) S/P AKA (above knee amputation) bilateral: Code(s): Z89.611 - Acquired absence of right leg above knee; Z89.612 - Acquired absence of left leg above knee Status: Acute Plan Echocardiogram reviewed with the patient, which shows LVEF 20-25%, no significant valvular disease. Given this new reduction in LVEF, an ischemic evaluation with cardiac cath is recommended to rule out ischemic heart disease as etiology for heart failure. I discussed the procedural details with the patient, including the benefits vs. risks, indications, etc. However, after discussion regarding procedure, patient states she does not want any invasive procedures done at this time. Given LVEF 20-25%, will switch Losartan to Entresto. Patient appears close to euvolemia, would switch IV diuretic to oral. Once euvolemic, would start Coreg 6.25mg PO BID. Subjective Date/time seen: 12/07/21 14:05 Interval history: Patient states she is feeling much better now. Able to lay flat without shortness of breath. Feels like she is almost back to baseline. Review of Systems Review of Systems: All systems reviewed & are unremarkable except as noted in HPI and below (HPI) Exam Const: General: comfortable and no acute distress Neck: Neck: no JVD Resp: Effort & Inspection: normal respiratory effort Auscultation: clear to auscultation bilaterally Other: Decreased breath sounds in bases Cardio: Rate: regular rate Rhythm: regular rhythm Heart sounds: no murmurs Skin: General skin exam: normal color Neuro: Speech: normal speech Extrem: Other: Bilateral AKA Psych: Mental Status: mental status grossly normal Objective Data Vital Signs Vital Signs: Vital Signs - 24 hr 12/06/21 16:00 12/06/21 20:21 12/06/21 21:01 Temperature 35.7 C L Pulse Rate 77 77 Respiratory Rate 18 Blood Pressure 133/64 Pulse Oximetry 94 95 Oxygen Delivery Room Air 12/06/21 19:30 12/06/21 20:00 12/07/21 00:00 Temperature Pulse Rate 72 69 Respiratory Rate Blood Pressure Pulse Oximetry Oxygen Delivery Room Air 12/07/21 04:00 12/07/21 04:56 12/07/21 08:00 Temperature 35.8 C L Pulse Rate 66 71 76 Respiratory Rate 18 Blood Pressure 131/62 Pulse Oximetry 93 Oxygen Delivery 12/07/21 09:53 12/07/21 10:00 12/07/21 12:00 Temperature Pulse Rate 80 83 Respiratory Rate 16 Blood Pressure 125/56 L Pulse Oximetry 100 100 Oxygen Delivery Room Air 12/07/21 14:00 Temperature 36.8 C Pulse Rate 83 Respiratory Rate 16 Blood Pressure 110/63 Pulse Oximetry 94 Oxygen Delivery Intake/Output Intake/Output: Intake & Output 12/04/21 12/05/21 12/06/21 12/07/21 23:59 23:59 23:59 23:59 Intake Total 1040 1120 Output Total 2300 4800 2450 Balance -2300 -3760 -1330 Meds/Results Medications: Active Medications Generic Name Dose Route Start Last Admin Trade Name Freq PRN Reason Stop Dose Admin Acetaminophen 650 mg 12/06/21 00:55 Acetaminophen 325 Mg Tablet PO Q6H PRN Pain (Scale Score 1-3) Al Hydrox/Mg Hydrox/Simethicone 30 ml 12/06/21 01:03 Mag Hydrox/Al Hydrox/Simeth 30 Ml Udc PO Q8H PRN bloating Atorvastatin Calcium 40 mg 12/06/21 09:00 12/07/21 09:55 Atorvastatin 40 Mg Tablet PO 40 mg DAILY KASIE Administration Bisacodyl 10 mg 12/06/21 00:55 Bisacodyl 10 Mg Suppository RECTAL PRN PRN Constipation Enoxaparin Sodium 40 mg 12/06/21 09:00 12/07/21 0
[2021-12-07 15:19] LABS: Anion Gap 12 mmol/L (8-16); Blood Urea Nitrogen 18 mg/dL (7-17); Calcium 8.8 mg/dL (8.4-10.2); Carbon Dioxide 31 mmol/L (22-30); Chloride 97 mmol/L (98-107); Estimated CRCL calculation 58 ml/min; Estimated Glomerular Filt Rate > 60; Glucose 126 mg/dL (65-110); Phosphorus 4.7 mg/dL (2.5-4.5); Potassium 3.7 mmol/L (3.4-5.0); Sodium 140 mmol/L (137-145)
[2021-12-07 17:16] LABS: Glucose Point of Care 112 mg/dl (65-105)
[2021-12-07] MEDS: SACUBITRIL/VALSARTAN 24-26 MG TABLET 1 TAB PO (20:38)
[2021-12-07 20:52] LABS: Glucose Point of Care 181 mg/dl (65-105)
[2021-12-07] MEDS: LOPERAMIDE HCL 2 MG CAPSULE PO (23:16)
[2021-12-08] VITALS: PULSE 80
[2021-12-08] MEDS: LOPERAMIDE HCL 2 MG CAPSULE PO (01:47)
[2021-12-08 04:00] VITALS: PULSE 72
[2021-12-08 05:10] LABS: Anion Gap 8 mmol/L (8-16); Blood Urea Nitrogen 19 mg/dL (7-17); Calcium 8.9 mg/dL (8.4-10.2); Carbon Dioxide 34 mmol/L (22-30); Chloride 98 mmol/L (98-107); Estimated CRCL calculation 52 ml/min; Estimated Glomerular Filt Rate > 60; Glucose 138 mg/dL (65-110); Potassium 3.9 mmol/L (3.4-5.0); Sodium 140 mmol/L (137-145)
[2021-12-08] MEDS: LEVOTHYROXINE SODIUM 100 MCG TABLET PO (05:55)
[2021-12-08 07:34] VITALS: BP 133/60; PULSE 76; RESP 21; TEMP 36.4; O2SAT 100
[2021-12-08 08:00] VITALS: PULSE 77
--- NOTE | 2021-12-08 08:33 | PM.IMPN ---
Subjective Date/time seen: 12/08/21 08:33 Objective Data Vital Signs Vital Signs: Vital Signs - 24 hr 12/07/21 09:53 12/07/21 10:00 12/07/21 12:00 Temperature Pulse Rate 80 83 Respiratory Rate 16 Blood Pressure 125/56 L Pulse Oximetry 100 100 Oxygen Delivery Room Air 12/07/21 14:00 12/07/21 16:00 12/07/21 20:00 Temperature 98.3 F Pulse Rate 83 86 84 Respiratory Rate 16 Blood Pressure 110/63 Pulse Oximetry 94 Oxygen Delivery 12/07/21 23:45 12/08/21 00:00 12/08/21 04:00 Temperature 98.2 F Pulse Rate 84 80 72 Respiratory Rate 21 H Blood Pressure 123/59 L Pulse Oximetry 100 Oxygen Delivery 12/08/21 07:34 Temperature 97.6 F Pulse Rate 76 Respiratory Rate 21 H Blood Pressure 133/60 Pulse Oximetry 100 Oxygen Delivery Intake/Output Intake/Output: Intake & Output 12/05/21 12/06/21 12/07/21 12/08/21 23:59 23:59 23:59 23:59 Intake Total 1040 1760 600 Output Total 2300 4800 2900 1500 Balance -2300 -3760 -1140 -900 Meds/Results Medications: Active Medications Generic Name Dose Route Start Last Admin Trade Name Freq PRN Reason Stop Dose Admin Acetaminophen 650 mg 12/06/21 00:55 Acetaminophen 325 Mg Tablet PO Q6H PRN Pain (Scale Score 1-3) Al Hydrox/Mg Hydrox/Simethicone 30 ml 12/06/21 01:03 Mag Hydrox/Al Hydrox/Simeth 30 Ml Udc PO Q8H PRN bloating Atorvastatin Calcium 40 mg 12/06/21 09:00 12/07/21 09:55 Atorvastatin 40 Mg Tablet PO 40 mg DAILY KASIE Administration Bisacodyl 10 mg 12/06/21 00:55 Bisacodyl 10 Mg Suppository RECTAL PRN PRN Constipation Enoxaparin Sodium 40 mg 12/06/21 09:00 12/07/21 09:55 Enoxaparin 40 Mg/0.4 Ml Syringe SUB-Q 40 mg DAILY KASIE Administration Furosemide 40 mg 12/06/21 09:00 12/07/21 18:06 Furosemide Inj 40 Mg/4 Ml Vial IV PUSH 40 mg BID KASIE Administration Gabapentin 400 mg 12/06/21 09:00 12/07/21 18:06 Gabapentin 400 Mg Capsule PO 400 mg BID KASIE Administration Insulin Aspart 0 units 12/06/21 08:00 12/07/21 17:24 Insulin Aspart (*Bkc) 100 Units/Ml SUB-Q Not Given ACINSULIN [facility] Protocol Levothyroxine Sodium 100 mcg 12/06/21 06:30 12/08/21 05:55 Levothyroxine Sodium 100 Mcg Tablet PO 100 mcg DAILY@0630 KASIE Administration Loperamide HCl 2 mg 12/06/21 00:55 12/08/21 01:47 Loperamide Hcl 2 Mg Capsule PO 2 mg PRN PRN Administration Diarrhea Oxycodone HCl 5 mg 12/06/21 00:55 Oxycodone Hcl (*Crx) 5 Mg Tab Ir PO Q4H PRN Pain (Scale Score 4-6) Pantoprazole Sodium 40 mg 12/06/21 09:00 12/07/21 09:55 Pantoprazole 40 Mg Tablet PO 40 mg DAILY KASIE Administration Potassium Chloride 40 meq 12/07/21 08:00 12/07/21 18:06 Potassium Chloride 20 Meq Tablet.Er PO 12/09/21 07:59 40 meq BIDWM KASIE Administration Sacubitril/Valsartan 1 tab 12/07/21 21:00 12/07/21 20:38 Sacubitril/Valsartan 24-26 Mg Tablet PO 1 tab Q12HR KASIE Administration Radiology Results: ITS Impressions Chest X-Ray 12/05/21 18:42 IMPRESSION: Cardiomegaly, congestive heart failure, pulmonary edema Labs Labs: Laboratory Results - last 24 hr 12/07/21 12/07/21 12/07/21 08:33 11:39 14:56 Sodium 140 Potassium 3.7 Chloride 97 L Carbon Dioxide 31 H Anion Gap 12 BUN 18 H Creatinine 0.80 Estim Creat Clear Calc 58 Estimated GFR > 60 Glucose 126 H POC Capillary Glucose 161 H 212 H Calcium 8.8 Phosphorus 4.7 H Magnesium 2.0 12/07/21 12/07/21 12/08/21 17:02 20:49 04:35 Sodium 140 Potassium 3.9 Chloride 98 Carbon Dioxide 34 H Anion Gap 8 BUN 19 H Creatinine 0.90 Estim Creat Clear Calc 52 Estimated GFR > 60 Glucose 138 H POC Capillary Glucose 112 H 181 H Calcium 8.9 Phosphorus Magnesium
[2021-12-08] MEDS: FUROSEMIDE INJ 40 MG/4 ML VIAL IV PUSH (08:47)
[2021-12-08] MEDS: SACUBITRIL/VALSARTAN 24-26 MG TABLET 1 TAB PO (08:47)
[2021-12-08] MEDS: ENOXAPARIN 40 MG/0.4 ML SYRINGE SUB-Q (08:47)
[2021-12-08] MEDS: ATORVASTATIN 40 MG TABLET PO (08:47)
[2021-12-08] MEDS: POTASSIUM CHLORIDE 20 MEQ TABLET.ER 40 MEQ PO (08:47)
[2021-12-08] MEDS: PANTOPRAZOLE 40 MG TABLET PO (08:47)
[2021-12-08] MEDS: GABAPENTIN 400 MG CAPSULE PO (08:47)
[2021-12-08] MEDS: INSULIN ASPART (*BKC) 100 UNITS/ML SUB-Q ×2 (08:49→12:00)
[2021-12-08 08:51] LABS: Glucose Point of Care 151 mg/dl (65-105)
[2021-12-08] MEDS: EMPAGLIFLOZIN 10 MG TABLET PO (10:44)
[2021-12-08 11:53] LABS: Glucose Point of Care 204 mg/dl (65-105)
[2021-12-08 12:00] VITALS: PULSE 79
--- NOTE | 2021-12-08 13:15 | PM.DS ---
DS: Admitting Diagnosis Discharge Date December 08, 2021 Admitting Diagnosis Swelling and shortness of breath DS: Discharge Diagnosis Discharge Diagnosis (1) Acute heart failure: Code(s): I50.9 - Heart failure, unspecified Status: Acute Assessment and Plan: Echo with severely reduced EF at 20-25%, grade II diastolic dysfunction. -Furosemide 40 mg IV BID -BMP 1500 today -Appreciate Cardiology recommendations (2) HTN (hypertension): Code(s): I10 - Essential (primary) hypertension Status: Acute Assessment and Plan: Amlodipine discontinued as Cardiology recommended losartan. Started losartan 25 mg po daily today. Will monitor. (3) Acute hypokalemia: Code(s): E87.6 - Hypokalemia Status: Acute Assessment and Plan: Resolved. (4) S/P AKA (above knee amputation) bilateral: Code(s): Z89.611 - Acquired absence of right leg above knee; Z89.612 - Acquired absence of left leg above knee Status: Acute Assessment and Plan: For PAD. (5) GERD (gastroesophageal reflux disease): Code(s): K21.9 - Gastro-esophageal reflux disease without esophagitis Status: Acute Assessment and Plan: PPI as needed (6) Diabetes: Code(s): E11.9 - Type 2 diabetes mellitus without complications Status: Acute Assessment and Plan: Hold glimepiride. -SSI -POC glucose. Plan Full Code Enoxaparin DS: Summary Hospital Course Hospital Course: 66-year-old female with past medical history significant for type 2 diabetes mellitus, hypertension, gastroesophageal reflux disease, peripheral vascular disease status post bilateral AKA.? Patient resides at senior care facility. patient was brought for evaluation to our emergency room due to bilateral lower stumps swelling overall generalized swelling,? shortness of breath, patient denies any fevers, rigors, chills, cough, sputum production,? no chest pain. preliminary workup was significant for brain natriuretic peptide up wards 12,000, troponins x1 0.012, hemoglobin of 11 hematocrit 36, potassium 3.2. Cardiology was consulted for concern regarding heart failure as a new diagnosis. Echo showed an EF of 20-25%. Heart catheterization was recommended on outpatient basis. Patient was started on Entresto and oral diuretics as well as Coreg. She was then discharged in good condition with close outpatient follow-up by primary care and Cardiology. All symptoms had resolved prior to discharge. Time Spent with Patient Time attestation: Total time spent providing and/or coordinating discharge services: Exam Narrative: GENERAL: NAD, cooperative HEENT: Normocephalic, atraumatic, anicteric, nares clear, oropharynx moist and clear, edentulous NECK:Supple CV: Normal S1, S2, RRR, No MRG RESP: CTAB, Normal work of breathing. Abdomen: Soft, non-tender, non-distended, +BS EXTREMITIES: bilateral above the knee amputation SKIN: warm, dry and intact. NEURO: CN 2-12 grossly intact. DS: Data Data Completed and Pending Labs on day of discharge: Labs from last 24 hours 12/08/21 12/08/21 12/08/21 11:43 08:45 04:35 Sodium 140 Potassium 3.9 Chloride 98 Carbon Dioxide 34 H Anion Gap 8 BUN 19 H Creatinine 0.90 Estim Creat Clear Calc 52 Estimated GFR > 60 Glucose 138 H POC Capillary Glucose 204 H 151 H Calcium 8.9 Phosphorus Magnesium 12/07/21 12/07/21 12/07/21 20:49 17:02 14:56 Sodium 140 Potassium 3.7 Chloride 97 L Carbon Dioxide 31 H Anion Gap 12 BUN 18 H Creatinine 0.80 Estim Creat Clear Calc 58 Estimated GFR > 60 Glucose 126 H POC Capillary Glucose 181 H 112 H Calcium 8.8 Phosphorus 4.7 H Magnesium 2.0 Discharge Plan Discharge Attending physician on discharge: Anneliese Etienne Consulting providers: Beto Ortez ; Priscilla Sandoval ; Bud Mustafa
--- NOTE | 2021-12-08 13:37 | PM.PNCARD ---
Progress Note: A&P Assessment and Plan (1) Acute heart failure: Code(s): I50.9 - Heart failure, unspecified Status: Acute (2) HTN (hypertension): Code(s): I10 - Essential (primary) hypertension Status: Acute (3) Diabetes: Code(s): E11.9 - Type 2 diabetes mellitus without complications Status: Acute (4) S/P AKA (above knee amputation) bilateral: Code(s): Z89.611 - Acquired absence of right leg above knee; Z89.612 - Acquired absence of left leg above knee Status: Acute Plan Echocardiogram reviewed with the patient, which shows LVEF 20-25%, no significant valvular disease. Given this new reduction in LVEF, an ischemic evaluation with cardiac cath is recommended to rule out ischemic heart disease as etiology for heart failure. I discussed the procedural details with the patient, including the benefits vs. risks, indications, etc. However, after discussion regarding procedure, patient states she does not want any invasive procedures done at this time. For heart failure, continue Entresto. Start Coreg 6.25mg PO BID. Continue Jardiance. Lasix 40mg PO daily. Patient to follow-up with us as an outpatient in [place]. Subjective Date/time seen: 12/08/21 13:37 Interval history: No acute events overnight. Patient denies any chest pain, shortness of breath or other cardiac symptoms. Review of Systems Review of Systems: All systems reviewed & are unremarkable except as noted in HPI and below (subjective) Exam Const: General: comfortable and no acute distress Neck: Neck: no JVD Resp: Effort & Inspection: normal respiratory effort Auscultation: clear to auscultation bilaterally Cardio: Rate: regular rate Rhythm: regular rhythm Heart sounds: no murmurs Extrem: General: no edema Psych: Mental Status: mental status grossly normal Objective Data Vital Signs Vital Signs: Vital Signs - 24 hr 12/07/21 14:00 12/07/21 16:00 12/07/21 20:00 Temperature 36.8 C Pulse Rate 83 86 84 Respiratory Rate 16 Blood Pressure 110/63 Pulse Oximetry 94 Oxygen Delivery 12/07/21 23:45 12/08/21 00:00 12/08/21 04:00 Temperature 36.8 C Pulse Rate 84 80 72 Respiratory Rate 21 H Blood Pressure 123/59 L Pulse Oximetry 100 Oxygen Delivery 12/08/21 07:34 12/08/21 08:45 12/08/21 08:00 Temperature 36.4 C Pulse Rate 76 77 Respiratory Rate 21 H Blood Pressure 133/60 Pulse Oximetry 100 Oxygen Delivery Room Air 12/08/21 12:00 Temperature Pulse Rate 79 Respiratory Rate Blood Pressure Pulse Oximetry Oxygen Delivery Intake/Output Intake/Output: Intake & Output 12/05/21 12/06/21 12/07/21 12/08/21 23:59 23:59 23:59 23:59 Intake Total 1040 1760 720 Output Total 2300 4800 2900 2300 Balance -4160 -3760 -1140 -1580 Meds/Results Medications: Active Medications Generic Name Dose Route Start Last Admin Trade Name Freq PRN Reason Stop Dose Admin Acetaminophen 650 mg 12/06/21 00:55 Acetaminophen 325 Mg Tablet PO Q6H PRN Pain (Scale Score 1-3) Al Hydrox/Mg Hydrox/Simethicone 30 ml 12/06/21 01:03 Mag Hydrox/Al Hydrox/Simeth 30 Ml Udc PO Q8H PRN bloating Atorvastatin Calcium 40 mg 12/06/21 09:00 12/08/21 08:47 Atorvastatin 40 Mg Tablet PO 40 mg DAILY KASIE Administration Bisacodyl 10 mg 12/06/21 00:55 Bisacodyl 10 Mg Suppository RECTAL PRN PRN Constipation Empagliflozin 10 mg 12/08/21 09:25 12/08/21 10:44 Empagliflozin 10 Mg Tablet PO 10 mg DAILY KASIE Administration Enoxaparin Sodium 40 mg 12/06/21 09:00 12/08/21 08:47 Enoxaparin 40 Mg/0.4 Ml Syringe SUB-Q 40 mg DAILY KASIE Administration Furosemide 40 mg 12/06/21 09:00 12/08/21 08:47 Furosemide Inj 40 Mg/4 Ml Vial IV PUSH 40 mg BID KASIE Administration Gabapentin 400 mg 12/06/21 09:00 12/08/21 08:47 Gabapentin 400 Mg Capsule PO 400 mg BID KASIE Administration Insulin Aspart 0
[2021-12-08 13:49] VITALS: BP 131/73; PULSE 71; RESP 14; TEMP 36.8; O2SAT 98
--- NOTE | 2021-12-08 14:19 | P.CDI_ITS ---
CDI Query Clarification Request 12/07 Hospitalist documented: Assessment and Plan (1) Acute heart failure: ?Code(s): I50.9 - Heart failure, unspecified ?Status:?Acute ?Assessment and Plan: Echo with severely reduced EF at 20-25%, grade II diastolic dysfunction.? -Furosemide 40 mg IV BID -BMP 1500 today -Appreciate Cardiology recommendations ? 12/07 Emergency Medicine Physician documented: Echocardiogram reviewed with the patient, which shows LVEF 20-25%, no significant valvular disease. Given this new reduction in LVEF, an ischemic evaluation with cardiac cath is recommended to rule out ischemic heart disease as etiology for heart failure. I discussed the procedural details with the patient, including the benefits vs. risks, indications, etc. However, after discussion regarding procedure, patient states she does not want any invasive procedures done at this time. Given LVEF 20-25%, will switch Losartan to Entresto. Patient appears close to euvolemia, would switch IV diuretic to oral. Once euvolemic, would start Coreg 6.25mg PO BID. For coding purposes, lab/procedure values cannot be used as a diagnosis. Please clarify if CHF, (congestive heart failure) is: Diastolic Systolic Combined Other Unable to determine
[2021-12-08 16:12] LABS: EDCOVIDSCREEN Negative (Negative)
[2021-12-08 16:48] LABS: Glucose Point of Care 127 mg/dl (65-105)
== END 2021-12-08 17:05 ==
LOC: ANHED 20:29 → ANH2MED 21:25
PROVIDERS: Emergency Medicine; Family Medicine; Internal Medicine; Admitting Provider Internal Medicine; Emergency Provider Emergency Medicine; Visit Provider Student in an Organized Health Care Education/Training Program
DX: I11.0 Hypertensive heart disease with heart failure (principal); I50.40 Unspecified combined systolic (congestive) and diastolic (congestive) heart failure; E87.6 Hypokalemia; Z89.611 Acquired absence of right leg above knee; Z89.612 Acquired absence of left leg above knee; K21.9 Gastro-esophageal reflux disease without esophagitis; E11.9 Type 2 diabetes mellitus without complications; E11.51 Type 2 diabetes mellitus with diabetic peripheral angiopathy without gangrene; Z20.822 Contact with and (suspected) exposure to COVID-19; E66.9 Obesity, unspecified; Z68.30 Body mass index [BMI] 30.0-30.9, adult; R09.02 Hypoxemia; T87.89 Other complications of amputation stump; I44.30 Unspecified atrioventricular block; R94.31 Abnormal electrocardiogram [ECG] [EKG]; J81.1 Chronic pulmonary edema; I35.8 Other nonrheumatic aortic valve disorders; R35.89 Other polyuria; Z85.3 Personal history of malignant neoplasm of breast; Z92.21 Personal history of antineoplastic chemotherapy; Z92.3 Personal history of irradiation; Z79.1 Long term (current) use of non-steroidal anti-inflammatories (NSAID); Z79.84 Long term (current) use of oral hypoglycemic drugs; Z79.4 Long term (current) use of insulin; Z79.891 Long term (current) use of opiate analgesic; Z79.899 Other long term (current) drug therapy; Z82.49 Family history of ischemic heart disease and other diseases of the circulatory system; Z83.3 Family history of diabetes mellitus
CPT/HCPCS: 36415; 51702; 71045; 80048; 80053; 82948; 83735; 83880; 84100; 84439; 84443; 84480; 84484; 85025; 87426; 93005; 96365; 96366; 96367; 96372; 96375; 96376; 99285; A9270; C8929; C9803; G0378; J1650; J1815; J1940; J3475; J3480; J7040; Q9957; U0003; U0005

== ENCOUNTER 2022-05-16 13:24 | Inpatient (IN) | payer OTHER, SELFPAY ==
[2022-05-16] VITALS (23 sets, daily range): BP systolic 85–160; BP diastolic 28–89; PULSE 63–671; RESP 12–20; TEMP 36.4–36.6; O2SAT 92–100; BMI 26.4
--- NOTE | ~2022-05-16 | CT_ITS ---
EXAMINATION: CT brain wo con DATE: 05/16/2022 15:46 INDICATION: altered mental status . TECHNIQUE: Computed tomography (CT) of the head was performed without intravenous contrast. The mA wa s adjusted according to patient size. Iterative reconstruction technique was employed. The dose-lengt h product was 681.00 mGy-cm. COMPARISON: None. FINDINGS: No acute intracranial hemorrhage or extra-axial fluid collection. No hydrocephalus, mass, or herniation. No acute ischemic infarct. Unremarkable dural venous sinus attenuation. No acute osseous abnormality. Minimal ethmoid mucosal thickening, trace right mastoid fluid, the remaining aerated spaces are clear . Mild atrophy and chronic white matter change. Atherosclerotic intracranial calcification. Bilateral b jessica ganglia calcification. IMPRESSION: No acute intracranial process. Reviewed, dictated and finalized at location K. ER MIXER
--- NOTE | ~2022-05-16 | XR_ITS ---
EXAMINATION: XR chest port-a-cath/central Exam Date/Time: 05/16/2022 17:15 CORPORATE SCHEDULER HISTORY: central line placement RIGHT SIDE Comparison: Same date at 1:52 PM; CT abdomen and pelvis same date. RESULT: Lines, tubes, and devices: New right IJ central line, terminating in the mid SVC. Peripherally calci fied right axillary mass. Left axillary surgical clips. Lungs and pleura: Persistent low lung volumes, left upper lung scar/atelectasis, and right hemidiaph ragm elevation. Bilateral scar/atelectasis. Stable mild edema/vascular congestion. Cardiomediastinal silhouette: Stable. Other: No acute osseous or upper abdominal finding. IMPRESSION: Right IJ central line, in good position and without evident pneumothorax. Reviewed, dictated and finalized at location K. ORATE SCHEDULER
--- NOTE | ~2022-05-16 | CT_ITS ---
EXAMINATION: CT abdomen pelvis w con DATE: 05/16/2022 15:54 INDICATION: Anemia. Abdominal mass. TECHNIQUE: Computed tomography (CT) of the abdomen and pelvis was performed with 100 mL Omnipaque 350 intravenous contrast. Automated exposure control and iterative reconstruction technique were employe d. The dose-length product was 1650.76 mGy-cm. COMPARISON: None. FINDINGS: The visualized portions of the lung bases demonstrate mild atelectasis. There are trace ple ural effusions. Cardiomegaly is noted. There is a small pericardial effusion. Partially visualized is a rim-calcified right breast implant. Calcifications in the liver and splenic consistent with old gr anulomatous disease. There are gallstones in the gallbladder, which is normal in size. There is a sma ll sliding hiatal hernia. The pancreas and adrenal glands are normal. There is cortical thinning of t he kidneys. The bladder is decompressed by a Kaplan catheter. There is diffuse bladder wall thickening , consistent with cystitis. There is urothelial thickening in the ureters, consistent with pyelitis. There is wall thickening of the rectosigmoid. The hemorrhoids in the rectum. The appendix is normal. There are no dilated loops of bowel. There is calcified atherosclerosis of the aorta and many of the other arteries. There are surgical changes in the anterior abdominal wall. There is a 15.3 x 8.9 x 6. 5 cm rim calcified fluid collection superficial to the abdominal wall musculature at the midline. The re are no pathologically enlarged lymph nodes. There is no free intraperitoneal fluid. There is mild thoracic and lumbar spondylosis. There is severe osteoarthritis of the hips. There are erosions at th e pubic symphysis. IMPRESSION: 1. Cystitis and bilateral pyelitis. 2. Wall thickening of the rectosigmoid, consistent with colitis. Hemorrhoids noted. 3. 15.3 x 8.9 x 6.5 cm rim-calcified fluid collection superficial to the abdominal wall musculature a t the midline, likely a seroma or chronic hematoma. 4. Erosions of the pubic symphysis, which may be severe degenerative change or osteomyelitis. Reviewed, dictated and finalized at location A. FENCE BUILDER IMPRESSION: 1. Cystitis and bilateral pyelitis. 2. Wall thickening of the rectosigmoid, consistent with colitis. Hemorrhoids no monalisa. 3. 15.3 x 8.9 x 6.5 cm rim-calcified fluid collection superficial to the abdomi nal wall musculature at the midline, likely a seroma or chronic hematoma. 4. Erosions of the pubic symphysis, which may be severe degenerative change or osteomyelitis.
--- NOTE | ~2022-05-16 | XR_ITS ---
XR chest 1V portable DATE: 05/16/2022 14:00 INDICATION: Lethargy, unresponsive TECHNIQUE: Portable AP views on 05/16/2022 at 1352 hours COMPARISON: 12/05/2021 portable AP chest FINDINGS: Cardiomegaly. There is extensive thoracic There is pulmonary vascular congestion and redistribution. The right diaphragm is prominently elevated. There is mild atelectasis at the right lung base. No pleural effusion or pneumothorax is detected. Aortic calcification. Prominent calcified right paratracheal and subcarinal lymph nodes Degenerative spurring of the thoracic spine. Prominent soft tissue density in the right axillary area with peripheral eggshell calcification. Surg ical clips, left axillary area consistent with left axillary node dissection. IMPRESSION: Cardiomegaly, mild congestive heart failure Extensive thoracic aortic calcification Reviewed, dictated and finalized at location B. ING RELOCATION
--- NOTE | 2022-05-16 13:41 | ECG_ITS ---
Measurements Intervals Mikado Rate: 72 P: 48 FL: 214 QRS: -35 QRSD: 106 T: -87 QT: 395 QTc: 433 Interpretive Statements SINUS RHYTHM WITH FIRST DEGREE AV BLOCK LEFT AXIS DEVIATION EXTENSIVE ANTERIOR INFARCT, AGE INDETERMINATE INFERIOR INFARCT, AGE INDETERMINATE BORDERLINE ST ABNORMALITY- HIGH LATERAL LEADS ABNORMAL ECG COMPARED TO ECG 12/05/2021 18:16:49 LEFT-AXIS DEVIATION NOW PRESENT Electronically Signed On 05-16-2022 13:58:03 [employer] ENTRY WRITER by Rowdy Law D.O.
[2022-05-16] MEDS: SODIUM CHLORIDE 0.9% IV 1,000 ML 999 ML IV CONT ×2 (13:48→13:56)
[2022-05-16 13:57] LABS: Basophils Percent Auto 0.1 % (0.2-1.2); Hematocrit 24.2 % (37.0-47.0); Hemoglobin 7.6 g/dL (12.0-15.0); Immature Granulocyte Absolute 0.07 K/mm3 (0.00-0.031); Immature Granulocyte Percent A 0.5 % (0-0.5); Lymphocytes Absolute Auto 0.64 K/mm3 (0.9-3.2); Lymphocytes Percent Auto 4.1 % (18.3-44.2); Mean Corpuscular HGB Conc 31.4 g/dl (32-36); Mean Corpuscular Hemoglobin 29.1 pg (26-34); Mean Corpuscular Volume 92.7 fl (80-100); Mean Platelet Volume 9.9 fl (7.4-10.4); Monocytes Absolute Auto 0.3 K/mm3 (0.1-0.6); Monocytes Percent Auto 1.7 % (2.6-8.5); Neutrophils Absolute Auto 14.5 K/mm3 (1.3-6.7); Neutrophils Percent Auto 93.6 % (45.5-73.1); Platelet Count Result 326 k/mm3 (150-375); Red Blood Count 2.61 M/mm3 (4.2-5.4); White Blood Count 15.5 K/mm3 (4.5-10.0)
[2022-05-16 14:04] LABS: INR 1.4; Prothrombin Time 16.3 Seconds (11.1-14.7)
[2022-05-16 14:05] LABS: Partial Thromboplastin Time 28.7 SECONDS (22.3-36.8)
--- NOTE | 2022-05-16 14:09 | ED.AMS ---
HPI - Altered Mental Status General Chief Complaint: Altered Mental Status Stated Complaint: lethargic Time Seen by Provider: 05/16/22 13:33 Source: family, EMS and RN notes reviewed Mode of arrival: EMS Limitations: altered mental status History of Present Illness HPI narrative: This is a 67 year old female with history of CHF, bilateral AKA, DM who presents for evaluation of increased lethargy. PAtient' s son states he was told over the past 1 week she had not been eating and drinking. They thought she had a UTI . alf reports urine culture was positive today so they finally ordered antibiotics today. She was sent to ER for increased lethargy today. On arrival patient has been found hypotensive. IT is reported she is normal alert and oriented x 4 and today she is only oriented to person and place. She denies any pain, shortness of breath, nausea or vomiting. MD complaint: altered mental status Related Data Home Medications Medication Instructions Recorded Confirmed Maalox Plus 30 ml PO Q8H PRN bloating 12/05/21 05/16/22 acetaminophen 325 mg capsule 650 mg PO Q6H PRN Pain (Scale 12/05/21 05/16/22 (Tylenol) Score 1-3) atorvastatin 40 mg tablet 40 mg PO DAILY 12/05/21 05/16/22 bisacodyl 10 mg rectal suppository 10 mg RECTAL PRN PRN Constipation 12/05/21 05/16/22 insulin aspart U-100 100 unit/mL See Rx Instructions .Route .COMPLEX 12/05/21 05/16/22 subcutaneous solution (Novolog U-100 Insulin aspart) levothyroxine 100 mcg tablet 100 mcg PO DAILY 12/05/21 05/16/22 loperamide 2 mg tablet (Imodium 2 mg PO PRN PRN Diarrhea 12/05/21 05/16/22 A-D) ondansetron HCl 4 mg tablet 4 mg PO Q8H PRN Nausea 12/05/21 05/16/22 gabapentin 300 mg capsule 300 mg PO TID 05/16/22 05/16/22 omeprazole 20 mg capsule,delayed 20 mg PO DAILY 05/16/22 05/16/22 release potassium chloride 10 mEq 10 meq PO DAILY 05/16/22 05/16/22 capsule,extended release Allergies Allergy/AdvReac Type Severity Reaction Status Date / Time codeine Allergy Unknown Verified 05/16/22 23:03 Review of Systems Review of Systems: ROS unobtainable: Yes unobtainable due to mental status PMFSH Past Medical History Medical History Combined systolic and diastolic congestive heart failure echocardiogram 12/06/2021: Severely reduced right ventricular systolic function with EF of 20-25%, moderate left ventricular chamber enlargement, moderate left atrial enlargement, grade 2 diastolic dysfunction Diabetes GERD (gastroesophageal reflux disease) HTN (hypertension) Psychiatric disorder Surgical History Surgical History S/P AKA (above knee amputation) bilateral Family History Family History Mother Family history of type 2 diabetes mellitus, Onset Age: 55 Patient's mother is Father Patient's father is , Onset Age: 58 Acute myocardial infarction, Onset Age: 58 Social History Social History Smoking status: Never smoker Second hand tobacco smoke exposure: No Alcohol intake: never Substance use: never Lack of Transportation: No Lack of Food: Never True Current Housing: I Have Housing Concerned About Future Housing: No Difficulty Paying Gas/Electric Bills: No Difficulty Paying for Meds: No Currently Unemployed: No Education: High School Diploma/GED Difficulty w/ Childcare or Family Care: No Spiritual care concerns: No Exam Const: General: confusion and ill appearing Limitations: altered mental status HENMT: Head: normal to inspection Ears: external ears normal and TM's normal bilaterally Face and sinus: normal facial exam Mouth: Yes lip normal and Yes moist mucous membranes Throat: posterior oropharynx normal and uvula midline Other: endentulous Eyes: EOM: EO
[2022-05-16 14:16] LABS: Lactic Acid Reflex 1.5 mmol/L (0.7-2.0)
[2022-05-16 14:17] LABS: Alveolar/Arterial O2 Gradient 41.7 mmHg; Carboxyhemoglobin 3.6 % THb (0-2.0); Fractional Inspired Oxygen 21 %; HCO3 ABG 16.7 mEq/l (22.0-26.0); Methemoglobin ABG 0.3 %THb (0-1.5); PCO2 ABG 35.4 mmHg (35.0-45.0); PO2 ABG 65.6 mmHg (80.0-100.0); PO2 FiO2 Ratio Arterial Blood 3.12 %; Reduced Hemoglobin 11.3 %THb (0-5.0)
[2022-05-16 14:19] LABS: pH ABG 7.292 (7.350-7.450)
[2022-05-16 14:20] LABS: Device ROOM AIR; Modified Allen's Test Pass; Oxyhemoglobin 84.8 % THb (90.0-100.0); Site Drawn LEFT RADIAL; Total Hemoglobin 6.6 g/dL (12.0-18.0)
[2022-05-16 14:33] LABS: Platelet Estimate Adequate (Adequate)
[2022-05-16 14:34] LABS: Anisocytosis 2+ (NORMAL); Hypochromasia 1+ (NORMAL); Schistocytes None Seen (NORMAL)
[2022-05-16] MEDS: DOPamine 400 MG/D5W 250 ML 400 MG/250 ML BAG 13.95 MG IV CONT (14:35)
[2022-05-16] MEDS: CEFEPIME 2 GM/NS 50 ML 2 GM/50 ML BAG IVPB (15:01)
[2022-05-16 15:19] LABS: Alanine Aminotransferase 21 U/L (6-35); Albumin Level 3.2 g/dL (3.5-5.1); Alkaline Phosphatase 45 U/L (38-126); Anion Gap 9 mmol/L (8-16); Aspartate Amino Transferase 34 U/L (14-36); Bilirubin,Total 1.4 mg/dL (0.2-1.3); Blood Urea Nitrogen 66 mg/dL (7-17); Calcium 7.3 mg/dL (8.4-10.2); Carbon Dioxide 20 mmol/L (22-30); Chloride 103 mmol/L (98-107); Estimated Glomerular Filt Rate 45; Glucose 290 mg/dL (65-110); Potassium 4.1 mmol/L (3.4-5.0); Sodium 132 mmol/L (137-145)
[2022-05-16 15:29] LABS: Bacteria Urine 4+ /hpf; Need Manual Microscopic Reviewed; Squamous Epithelial Cell Urine Many /hpf (Few); WBC Urine >100 /hpf
[2022-05-16 15:31] LABS: Appearance Urine Cloudy (Clear); Color Urine Dark Orange (Yellow)
[2022-05-16 15:32] LABS: Protein Urine Unable to determine mg/dL (Negative); pH Urine Unable to determine (5.0-9.0)
[2022-05-16 15:32] LABS: CRP 23.8 mg/dL (<1.0)
[2022-05-16 15:33] LABS: Lipase < 10 U/L (23-300)
[2022-05-16 15:40] LABS: Add Urine Microscopic? YES
[2022-05-16] MEDS: SODIUM CHLORIDE 0.9% IV 500 ML 999 ML IV CONT (16:01)
[2022-05-16] MEDS: SODIUM CHLORIDE 0.9% IV 250 ML 30 ML IV CONT (16:39)
--- NOTE | 2022-05-16 16:48 | PC.NURSE ---
Dr. Suarez at bedside for central line placement.
[2022-05-16] MEDS: TUBING, BLOOD PLUM PUMP TUBING 1 EACH XX (17:56)
[2022-05-16] MEDS: NOREPINEPHRINE 8 MG/D5W 250 ML 8 MG/250 ML BAG 9.38 MG IV CONT (18:13)
--- NOTE | 2022-05-16 18:20 | PC.NURSE ---
per Dr. Suarez, titrated Levophed to 10mcg/min and titrated Dopamine to 1mcg/min. VORB.
--- NOTE | 2022-05-16 18:27 | PC.NURSE ---
stopped Dopamine per Dr. Suarez.
--- NOTE | 2022-05-16 19:00 | PC.NURSE ---
Per Dr. Suarez, 2nd unit not to be given.
[2022-05-16 20:42] LABS: Hematocrit 29.5 % (37.0-47.0)
--- NOTE | 2022-05-16 21:10 | PM.IMHP ---
H&P: HPI History of Present Illness Date/Time: 05/16/22 21:10 Chief Complaint: lethargic, UTI diagnosed at [place] Narrative: 67-year-old female with past medical history of CHF, bilateral above the knee amputations, type 2 diabetes, hypothyroidism and GERD who presented to the ER from senior care due to increased lethargy, confusion and diagnosis of UTI. the patient had been tested for urinary tract infection at the senior care. Triage note states that the patient's urine culture came back positive for UTI. Results of the urine culture are not known I tried to contact the senior care without success. The patient arrived to the ER and became hypotensive. She received 2 L of normal saline. She remained hypotensive in subsequently the ER physician placed a right IJ his patient was initially started on dopamine but once central line placement was confirmed which transition to Levophed which was titrated up to 10 mg. Patient had improvement in her blood pressures. She was placed on empiric antibiotic therapy with Cefepime and vancomycin but this was switched to Primaxin. Patient was noted to have acute on chronic anemia with hemoglobin down to 7.6 from previous value of 11. Patient received 1 unit of blood transfusion. Labs also demonstrated troponin greater than 1. No significant changes noted on the patient's EKG. The patient was never febrile. an ABG was performed which demonstrated acute metabolic acidosis. However, the patient's lactic acid was normal. She did have acute kidney injury and her serum bicarb level was mildly Low at 20 but the patient's baseline serum bicarb is usually in the mid 30s. CT of the abdomen pelvis with contrast demonstrate cystitis with bilateral pyelitis, and wall thickening of the rectosigmoid consistent with colitis. 15.3 x 8.9 x 6.5 cm rim calcified fluid collection superficial to the abdominal wall musculature in the midline likely seroma or chronic hematoma. He arelis shins at the pubic symphysis with which may be severe degenerative changes were osteomyelitis. the patient's blood pressure stabilized in the ER. Cardiology and the special library librarian were consulted. The patient was admitted to the hospitalist service as primary for septic shock due to ascending urinary tract infection. The patient herself reports that she has been feeling more tired and a little confused for a couple of days. She denies chest pain or shortness of breath. She denies any flank pain. She did report some dysuria but cannot give me a time frame for the dysuria. She is only a fair historian at best. She evidently had several copious diarrheal stools in the ER and has had 1 loose stools since arriving to the ICU. I initially went and evaluated patient in the ER. She denies any headache or vision changes. When I evaluated the patient she was lying flat on the ER stretcher and had no evidence of any respiratory distress. At the time of my evaluation the patient was alert oriented to person place year name the president and current events. She was confused as to the month. The patient admits that her memory has been slipping for the last year or so. The patient reports that she began feeling ill last week. They checked a urine at the senior care and found a UTI. When the results reportedly came back on the and the patient was started on antibiotic therapy but he was not scheduled to start until the . The patient ended up in the ER prior prior to receiving antibiotic therapy. [facility] Past Medical History Medical History (Updated 05/17/22 @ 07:47 by Marley Jauregui DO) Combined systolic and diastolic congestive heart failure echocardiogram 12/06/2021: Severely reduced right ventricular systolic function with EF of 20-25%, moderate left ventricular chamber enlargement, moderate left atrial enlargement, grade 2 diastolic dysfunction Dementia Diabetes GERD (gastroesophageal reflux disease) HTN (hypertension) Hyperlipidemia Peripheral va
[2022-05-16 21:23] LABS: Glucose Point of Care 194 mg/dl (65-105)
--- NOTE | 2022-05-16 22:46 | ADMGEN ---
This patient, Iris Pascual, was admitted to Intensive Care Unit-1 at 2212 on 05/16/2022. Patient/family oriented to hospital policies and general routines including ID bracelet, bed and alarms, visiting hours, pain management, procedures, bathroom and other care routines, personal items, smoking policy, room service/diet, and visiting hours. Information on how to activate the Rapid Response Team has been discussed. Patient/Family are encouraged to report perceived risks to care and to ask questions if they do not understand what they are told or what they should do.
[2022-05-17] VITALS (19 sets, daily range): BP systolic 103–140; BP diastolic 36–98; PULSE 72–95; RESP 13–22; TEMP 36.7–37.6; O2SAT 95–100; BMI 25.9
[2022-05-17] MEDS: LEVOTHYROXINE SODIUM 100 MCG TABLET PO (06:05)
[2022-05-17] MEDS: CENTRAL LINE FLUSH 10 ML IV PUSH ×4 (06:05→20:35)
[2022-05-17 06:09] LABS: Basophils Absolute Auto 0.1 K/mm3 (0.0-0.1); Basophils Percent Auto 0.3 % (0.2-1.2); Eosinophils Absolute Auto 0.2 K/mm3 (0-0.3); Eosinophils Percent Auto 1.2 % (0-4.4); Hematocrit 28.8 % (37.0-47.0); Immature Granulocyte Absolute 0.19 K/mm3 (0.00-0.031); Immature Granulocyte Percent A 1.1 % (0-0.5); Lymphocytes Absolute Auto 0.94 K/mm3 (0.9-3.2); Lymphocytes Percent Auto 5.4 % (18.3-44.2); Mean Corpuscular HGB Conc 31.3 g/dl (32-36); Mean Corpuscular Hemoglobin 28.2 pg (26-34); Mean Corpuscular Volume 90.3 fl (80-100); Mean Platelet Volume 9.2 fl (7.4-10.4); Monocytes Absolute Auto 0.8 K/mm3 (0.1-0.6); Monocytes Percent Auto 4.5 % (2.6-8.5); Neutrophils Absolute Auto 15.1 K/mm3 (1.3-6.7); Neutrophils Percent Auto 87.5 % (45.5-73.1); Platelet Count Result 377 k/mm3 (150-375); Red Blood Count 3.19 M/mm3 (4.2-5.4); Red Cell Distribution Width 18.8 % (11.5-14.5); White Blood Count 17.3 K/mm3 (4.5-10.0)
[2022-05-17 06:24] LABS: Alanine Aminotransferase 20 U/L (6-35); Albumin Level 3.4 g/dL (3.5-5.1); Alkaline Phosphatase 49 U/L (38-126); Anion Gap 11 mmol/L (8-16); Aspartate Amino Transferase 47 U/L (14-36); Bilirubin,Total 0.6 mg/dL (0.2-1.3); Blood Urea Nitrogen 54 mg/dL (7-17); Calcium 8.2 mg/dL (8.4-10.2); Carbon Dioxide 19 mmol/L (22-30); Chloride 103 mmol/L (98-107); Estimated CRCL calculation 27 ml/min; Estimated Glomerular Filt Rate 39; Glucose 196 mg/dL (65-110); Sodium 133 mmol/L (137-145)
[2022-05-17 07:11] LABS: Toxigenic C. Diff NEGATIVE (NEGATIVE)
[2022-05-17] MEDS: INSULIN ASPART (*BKC) 100 UNITS/ML SUB-Q ×2 (07:53→17:15)
[2022-05-17] MEDS: GABAPENTIN 300 MG CAPSULE PO ×3 (08:08→17:16)
[2022-05-17] MEDS: ATORVASTATIN 40 MG TABLET PO (08:08)
[2022-05-17] MEDS: PANTOPRAZOLE 40 MG TABLET PO (08:08)
--- NOTE | 2022-05-17 08:52 | WPDCNINT ---
Assessment and Plan Assessment and plan (1) Septic shock: Code(s): A41.9 - Sepsis, unspecified organism; R65.21 - Severe sepsis with septic shock Status: Acute Plan Neuro: - No acute issues. Cardiovascular: - Septic shock: Pt received 2L IVF in ED, started on Levophed. Lactic acid is WNL. Wean Levophed for MAP 65. - CHF: chronic HFrEF and HFpEF (EF 20-25%, grade 2 DD). Compensated. - PAD: s/p bilateral AKA. - Hx of HTN. Pulmonary: - No acute issues. GI: - No acute issues. Renal: - ABDIRASHID: due to hypoperfusion from sepsis and hypovolemia. Improved. Monitor UOP and SCr. ID: - Pyelitis: no stone on CT. Follow cultures, continue empiric imipenem for now. - Possible colitis: noted on CT. Pt admits to diarrhea. No indication for CDI testing at this time. Should be covered by imipenem but will continue to monitor need for CDI testing. Heme/Onc: - Anemia: no bleeding noted. Received 1u pRBC in ED. Stable. - History of breast CA: s/p surgery and radiation. - Start heparin SC for DVT ppx. Endocrine: - DM II: controlled on SSI. Musculoskeletal/skin: - Local wound care. Marketing Production Manager Consult Note Consult date: 05/17/22 Reason for consult: Septic shock HPI: Iris Pascual is a 67 year old female with a history of CHF (both systolic and diastolic, EF 20-25%, grade 2 DD), PAD s/p bilateral AKA, DM II, HTN, and GERD who presented to the ED last night with altered mental status. She was diagnosed with a UTI as an OP but was not scheduled to start abx until today. She clinically worsened last night and was found to be hypotensive. Pt was given 2L IVF but remained hypotensive and was started on Levophed. Imipenem was started empirically and she was admitted to the ICU for further management. Pt feels better and states that she got a good night's sleep. She denies any complaints at this time. Review of Systems Review of Systems: As per HPI. [facility] Past Medical History Medical History (Updated 05/17/22 @ 07:47 by Marley Jauregui DO) Combined systolic and diastolic congestive heart failure echocardiogram 12/06/2021: Severely reduced right ventricular systolic function with EF of 20-25%, moderate left ventricular chamber enlargement, moderate left atrial enlargement, grade 2 diastolic dysfunction Dementia Diabetes GERD (gastroesophageal reflux disease) HTN (hypertension) Hyperlipidemia Peripheral vascular disease Psychiatric disorder Thyroid cancer Surgical History Surgical History (Updated 05/17/22 @ 07:46 by Marley Jauregui DO) History of lumpectomy of left breast History of right breast implant Patient reports that it was radiation implant History of thyroid surgery S/P AKA (above knee amputation) bilateral Family History Family History (Updated 05/17/22 @ 07:35 by Marley Jauregui DO) Mother Family history of type 2 diabetes mellitus, Onset Age: 55 Father Acute myocardial infarction, Onset Age: 58 Social History Social History (Updated 05/17/22 @ 07:40 by Marley Jauregui DO) Social History: The patient has advanced directive paperwork from the correction that states she is a DNR. However the patient's family members that were in the ER stated that they wanted the patient to be a full code. The patient herself wishes to be a DNR/DNI. Patient is mildly confused but is seemed to be having capacity and understands consequences. Smoking status: Never smoker Second hand tobacco smoke exposure: No Alcohol intake: never Substance use: never Lack of Transportation: No Lack of Food: Never True Current Housing: I Have Housing Concerned About Future Housing: No Difficulty Paying Gas/Electric Bills: No Difficulty Paying for Meds: No Currently Unemployed: No Education: High School Diploma/GED Difficulty w/ Childcare or Family Care: No Spiritual care concerns: No Meds Home Medications and Allergies Home Medications Medication Inst
[2022-05-17 08:54] LABS: Glucose Point of Care 210 mg/dl (65-105)
[2022-05-17] MEDS: HEPARIN SODIUM 5,000 UNITS/ML VIAL 5000 UNITS SUB-Q ×2 (10:32→20:35)
[2022-05-17 12:38] LABS: Glucose Point of Care 182 mg/dl (65-105)
--- NOTE | 2022-05-17 13:35 | PM.CNCAR ---
Assessment and Plan Assessment and plan (1) Elevated troponin: Code(s): R77.8 - Other specified abnormalities of plasma proteins Status: Acute Assessment and Plan: In the setting of septic shock. Known LVEF 20-25%. No chest pain. No ischemic EKG changes. No signs of ACS. Continue statin, consider ASA 81mg once daily if no contraindications. Patient previously declined cardiac cath. (2) Septic shock: Code(s): A41.9 - Sepsis, unspecified organism; R65.21 - Severe sepsis with septic shock Status: Acute Assessment and Plan: Management as per ICU (3) Combined systolic and diastolic congestive heart failure: Code(s): I50.40 - Unspecified combined systolic (congestive) and diastolic (congestive) heart failure Status: Acute Assessment and Plan: Stable. Agree with holding GDMT while on pressors. Resume GDMT once off of pressors and ABDIRASHID has resolved. Will have patient follow up with us in clinic. History of Present Illness History of Present Illness Consult date/time: 05/17/22 13:35 Requesting physician: Day Suarez MD Consult reason: Other (Elevated troponin) Reason For Visit: Shock,Septic Shock,STEMI,Encephalopathy,Anemia Narrative: We are consulted for elevated troponin. This is a 67-year-old female with a history of breast cancer s/p surgery/chemoradiation, bilateral AKA, type 2 diabetes, hypertension, GERD who we had previously seen in November for shortness of breath and new diagnosis of heart failure with reduced LVEF. Patient was treated for heart failure exacerbation. LVEF 20-25%. I did discuss cardiac cath with her at that time to evaluate for ischemic etiology for heart failure, however, patient declined. We had started her on GDMT with OhstJosh fox, Jardiance. Patient presented to ER 3/6 from her correction due to increased lethargy, confusion, and diagnosis of UTI. Patient had been tested for UTI at her correction, which was positive. Patient hypotensive on arrival, and pressor was started. Admitted to ICU for septic shock. Patient states she is feeling much better this morning. No chest pain, palpitations, shortness of breath. Labs are significant for WBC 17, ABDIRASHID with SCr of 1.6, peak troponin of 1.96. EKG without ischemic changes. Patient denies chest pain prior to admission. Review of Systems Review of Systems: All systems reviewed & are unremarkable except as noted in HPI and below (HPI) [facility] Past Medical History Medical History (Updated 05/17/22 @ 13:44 by Beto Ortez MD) Combined systolic and diastolic congestive heart failure echocardiogram 12/06/2021: Severely reduced right ventricular systolic function with EF of 20-25%, moderate left ventricular chamber enlargement, moderate left atrial enlargement, grade 2 diastolic dysfunction Dementia Diabetes GERD (gastroesophageal reflux disease) HTN (hypertension) Hyperlipidemia Peripheral vascular disease Psychiatric disorder Thyroid cancer Surgical History Surgical History History of lumpectomy of left breast History of right breast implant Patient reports that it was radiation implant History of thyroid surgery S/P AKA (above knee amputation) bilateral Family History Family History Mother Family history of type 2 diabetes mellitus, Onset Age: 55 Father Acute myocardial infarction, Onset Age: 58 Social History Social History Social History: The patient has advanced directive paperwork from the correction that states she is a DNR. However the patient's family members that were in the ER stated that they wanted the patient to be a full code. The patient herself wishes to be a DNR/DNI. Patient is mildly confused but is seemed to be having capacity and understands consequences. Smoking status: Sagar
--- NOTE | 2022-05-17 15:01 | PM.IMPN ---
Progress Note: A&P Assessment and Plan (1) Abnormal CT of the abdomen: Code(s): R93.5 - Abnormal findings on diagnostic imaging of other abdominal regions, including retroperitoneum Status: Acute (2) Acute metabolic encephalopathy: Code(s): G93.41 - Metabolic encephalopathy Status: Acute (3) Septic shock: Code(s): A41.9 - Sepsis, unspecified organism; R65.21 - Severe sepsis with septic shock Status: Acute (4) Acute kidney injury: Code(s): N17.9 - Acute kidney failure, unspecified Status: Acute Plan (1) Septic shock: She received 2L IVF in ED, started on Levophed. Lactic acid is WNL. Wean Levophed for MAP 65. CHF: chronic HFrEF and HFpEF (EF 20-25%, grade 2 DD). Compensated. 2)Renal: - ABDIRASHID: due to hypoperfusion from sepsis and hypovolemia. Improved. Monitor UOP and SCr. 3)Pyelitis+Possible Colitis no stone on CT. Follow cultures, continue empiric imipenem for now. - Possible colitis: noted on CT. Cdiff not tested 4)Anemia: no bleeding noted. Received 1u pRBC in ED. Stable. 5)Diabetes Mellitus: BG check TID AC ns HS SS insulin 6)DVT ppx:Hep SQ 7)Code:Full 8)Dispo:pending improvement Time Spent With Patient Time with patient: 25 - 35 minutes Subjective Date/time seen: 05/17/22 15:01 Interval history: no acute events overnight, remains in ICU Review of Systems Review of Systems: As per HPI. Exam Const: General: comfortable and no acute distress Other: AAO x4 HENMT: Mouth: Yes moist mucous membranes Other: Dry oropharynx Eyes: General: appearance normal, both eyes and all related structures Neck: Neck: supple Other: RIJ CVC noted Resp: Effort & Inspection: normal respiratory effort Auscultation: clear to auscultation bilaterally Other: CTAB Cardio: Rate: regular rate Rhythm: regular rhythm Heart sounds: no murmurs Other: RRR GI: GI Palp: Yes Soft to palpation and No Tenderness to palpation present (GI) Other: soft, nontender Skin: General skin exam: normal color Neuro: Speech: normal speech Extrem: Other: S/p bilateral AKA Psych: Mental Status: mental status grossly normal Affect: normal affect Objective Data Vital Signs Vital Signs: Vital Signs - 24 hr 05/16/22 16:03 05/16/22 16:28 05/16/22 16:46 Temperature 97.6 F 97.6 F Pulse Rate 93 86 86 Respiratory Rate 18 14 12 Blood Pressure 141/42 H 132/54 L 130/48 L Pulse Oximetry 100 100 100 Oxygen Delivery Oxygen Flow Rate 05/16/22 17:46 05/16/22 17:54 05/16/22 18:13 Temperature 97.6 F 97.6 F Pulse Rate 83 80 67 Respiratory Rate 18 15 Blood Pressure 144/44 H 144/44 H 99/33 L Pulse Oximetry 100 100 Oxygen Delivery Oxygen Flow Rate 05/16/22 17:50 05/16/22 18:19 05/16/22 18:20 Temperature Pulse Rate 671 H 72 73 Respiratory Rate Blood Pressure 144/44 H 87/38 L 87/38 L Pulse Oximetry Oxygen Delivery Oxygen Flow Rate 05/16/22 18:28 05/16/22 19:01 05/16/22 19:31 Temperature Pulse Rate 80 75 78 Respiratory Rate 17 13 Blood Pressure 160/52 H 154/62 H 149/73 H Pulse Oximetry 100 100 Oxygen Delivery Oxygen Flow Rate 05/16/22 19:44 05/16/22 20:09 05/16/22 20:34 Temperature Pulse Rate 77 77 Respiratory Rate Blood Pressure 147/89 H 147/72 H Pulse Oximetry 100 Oxygen Delivery Nasal Cannula Oxygen Flow Rate 2 05/16/22 21:06 05/16/22 22:15 05/16/22 22:15 Temperature 98 F Pulse Rate 70 78 Respiratory Rate 18 Blood Pressure 125/49 L 127/70 127/70 Pulse Oximetry 99 Oxygen Delivery Oxygen Flow Rate 05/16/22 22:45 05/17/22 00:00 05/17/22 00:07 Temperature 98.1 F Pulse Rate 72 Respiratory Rate 13 Blood Pressure 129/58 L 107/36 L 107/36 L Pulse Oximetry 100 Oxygen Delivery Oxygen Flow Rate 05/17/22 00:00 05/17/22 00:00 05/17/22 02:00 Temperature Pulse Rate 74 80 Respiratory Rate Blood Pressure Pulse Oximetry 100 Oxygen
[2022-05-17 18:51] LABS: Glucose Point of Care 213 mg/dl (65-105)
[2022-05-17 20:08] LABS: Glucose Point of Care 230 mg/dl (65-105)
[2022-05-18] VITALS (16 sets, daily range): BP systolic 72–154; BP diastolic 38–91; PULSE 81–95; RESP 15–30; TEMP 36.8–38.1; O2SAT 96–100
[2022-05-18] MEDS: NOREPINEPHRINE 8 MG/D5W 250 ML 8 MG/250 ML BAG 7.5 MG IV CONT (04:41)
[2022-05-18] MEDS: CENTRAL LINE FLUSH 10 ML IV PUSH ×4 (05:16→21:01)
[2022-05-18] MEDS: LEVOTHYROXINE SODIUM 100 MCG TABLET PO (05:16)
[2022-05-18] MEDS: INSULIN ASPART (*BKC) 100 UNITS/ML SUB-Q (08:04)
[2022-05-18] MEDS: HEPARIN SODIUM 5,000 UNITS/ML VIAL 5000 UNITS SUB-Q ×2 (08:07→21:01)
[2022-05-18] MEDS: ATORVASTATIN 40 MG TABLET PO (08:07)
[2022-05-18] MEDS: GABAPENTIN 300 MG CAPSULE PO ×3 (08:07→17:01)
[2022-05-18] MEDS: PANTOPRAZOLE 40 MG TABLET PO (08:10)
[2022-05-18 08:11] LABS: Glucose Point of Care 244 mg/dl (65-105)
--- NOTE | 2022-05-18 08:14 | WPDINTPN ---
Progress Note: A&P Assessment and Plan (1) Septic shock: Code(s): A41.9 - Sepsis, unspecified organism; R65.21 - Severe sepsis with septic shock Status: Acute Plan Neuro: - No acute issues. Cardiovascular: - Septic shock: Pt received 2L IVF in ED, started on Levophed, now off. Lactic acid is WNL. - CHF: chronic HFrEF and HFpEF (EF 20-25%, grade 2 DD). Compensated. - PAD: s/p bilateral AKA. - Hx of HTN. Pulmonary: - No acute issues. GI: - No acute issues. Renal: - ABDIRASHID: due to hypoperfusion from sepsis and hypovolemia. Improved. Monitor UOP and SCr. ID: - Pyelitis: no stone on CT. Follow cultures, continue empiric imipenem for now. - Possible colitis: noted on CT. Pt admits to diarrhea. CDI test was negative. Should be covered by imipenem. Heme/Onc: - Anemia: no bleeding noted. Received 1u pRBC in ED. Stable. - History of breast CA: s/p surgery and radiation. - Start heparin SC for DVT ppx. Endocrine: - DM II: controlled on SSI. Musculoskeletal/skin: - Local wound care. Time Spent With Patient Time: Critical care time: 35 minutes. Subjective Date/time seen: 05/18/22 08:14 24h events: Levophed turned off this AM. Pt denies any symptoms. Review of Systems Review of Systems: 10 point ROS is negative. Exam Const: Other: AAO x4 HENMT: Other: Dry oropharynx Neck: Other: RIJ CVC noted Resp: Other: CTAB Cardio: Other: RRR GI: Other: soft, nontender Extrem: Other: S/p bilateral AKA Objective Data Vital Signs Vital Signs: Vital Signs - 24 hr 05/17/22 08:26 05/17/22 10:00 05/17/22 10:00 Temperature Pulse Rate 84 75 75 Respiratory Rate 20 15 Blood Pressure 112/39 L Pulse Oximetry 95 100 Oxygen Delivery Nasal Cannula Oxygen Flow Rate 2 05/17/22 12:00 05/17/22 12:00 05/17/22 12:00 Temperature 98.3 F Pulse Rate 75 75 Respiratory Rate 14 Blood Pressure 122/51 L 122/51 L Pulse Oximetry 100 100 Oxygen Delivery Nasal Cannula Oxygen Flow Rate 2 05/17/22 12:00 05/17/22 14:00 05/17/22 14:00 Temperature Pulse Rate 77 95 87 Respiratory Rate Blood Pressure 111/74 Pulse Oximetry Oxygen Delivery Oxygen Flow Rate 05/17/22 14:00 05/17/22 16:00 05/17/22 16:35 Temperature 98.7 F Pulse Rate 87 83 86 Respiratory Rate 20 17 Blood Pressure 129/98 H 115/66 122/50 L Pulse Oximetry 100 97 Oxygen Delivery Oxygen Flow Rate 05/17/22 16:00 05/17/22 18:00 05/17/22 18:00 Temperature Pulse Rate 84 77 77 Respiratory Rate 22 H Blood Pressure 123/88 Pulse Oximetry 95 Oxygen Delivery Oxygen Flow Rate 05/17/22 18:07 05/17/22 16:00 05/17/22 20:00 Temperature Pulse Rate 77 87 Respiratory Rate Blood Pressure 123/88 Pulse Oximetry 95 Oxygen Delivery Room Air Oxygen Flow Rate 05/17/22 20:00 05/17/22 20:00 05/17/22 22:00 Temperature 99.0 F Pulse Rate 87 87 87 Respiratory Rate 13 13 Blood Pressure 118/59 L Pulse Oximetry 95 96 Oxygen Delivery Room Air Oxygen Flow Rate 05/17/22 22:00 05/18/22 00:00 05/18/22 00:00 Temperature Pulse Rate 87 90 90 Respiratory Rate 22 H 22 H Blood Pressure 103/54 L Pulse Oximetry 99 96 Oxygen Delivery Room Air Oxygen Flow Rate 05/18/22 00:00 05/18/22 01:08 05/18/22 02:00 Temperature 98.9 F Pulse Rate 90 91 91 Respiratory Rate 21 H Blood Pressure 108/61 72/50 L Pulse Oximetry 96 Oxygen Delivery Oxygen Flow Rate 05/18/22 02:00 05/18/22 02:36 05/18/22 03:02 Temperature Pulse Rate 91 92 93 Respiratory Rate 22 H Blood Pressure 126/59 L 109/38 L 117/49 L Pulse Oximetry 97 Oxygen Delivery Oxygen Flow Rate 05/18/22 04:00 05/18/22 04:00 05/18/22 04:00 Temperature 99.0 F Pulse Rate 91 93 90 Respiratory Rate 22 H 15 Blood Pressure 128/68 Pulse Oximetry 97 96 Oxygen Delivery Room Air Oxygen Flow Rate 05/18/22 04:41 05/18/22 05:46 05/18/22 06:00
--- NOTE | 2022-05-18 08:14 | PM.IMPN ---
Progress Note: A&P Assessment and Plan (1) Abnormal CT of the abdomen: Code(s): R93.5 - Abnormal findings on diagnostic imaging of other abdominal regions, including retroperitoneum Status: Acute (2) Acute metabolic encephalopathy: Code(s): G93.41 - Metabolic encephalopathy Status: Acute (3) Septic shock: Code(s): A41.9 - Sepsis, unspecified organism; R65.21 - Severe sepsis with septic shock Status: Acute (4) Acute kidney injury: Code(s): N17.9 - Acute kidney failure, unspecified Status: Acute Plan (1) Septic shock: Levophed weaned off Source is likely pyelitis, cont imipenem CHF: chronic HFrEF and HFpEF (EF 20-25%, grade 2 DD). Compensated. 2)Renal: - ABDIRASHID: due to hypoperfusion from sepsis and hypovolemia. Improved. Monitor UOP and SCr. 3)Pyelitis+Possible Colitis no stone on CT. Follow cultures, continue empiric imipenem for now. Possible colitis, severe watery diarrhea noted, cdif negative consider GI consult if this does not improve, add flagyl 4)Anemia: no bleeding noted. Received 1u pRBC in ED. Stable. 5)Diabetes Mellitus: BG check TID AC ns HS SS insulin 6)DVT ppx:Hep SQ 7)Code:Full 8)Dispo:pending improvement Time Spent With Patient Time with patient: 25 - 35 minutes Subjective Date/time seen: 05/18/22 08:14 Interval history: no overnight events noted, off levophed, no complaints Review of Systems Review of Systems: ROS unobtainable: Yes unobtainable due to mental status Exam Narrative: General: No acute distress, alert and oriented per baseline HEENT: Atraumatic, normocephalic, mucous membranes dry CV: Regular rate and rhythm, S1, S2 Lungs: Clear to auscultation bilaterally, no rales or crackles noted, no wheezes, good air entry Abdomen: Soft, mildly tender to palpation, somewhat distended Extremities: Status post bilateral AKA Skin: No rashes noted, no lesions or wounds seen Objective Data Vital Signs Vital Signs: Vital Signs - 24 hr 05/17/22 08:26 05/17/22 10:00 05/17/22 10:00 Temperature Pulse Rate 84 75 75 Respiratory Rate 20 15 Blood Pressure 112/39 L Pulse Oximetry 95 100 Oxygen Delivery Nasal Cannula Oxygen Flow Rate 2 05/17/22 12:00 05/17/22 12:00 05/17/22 12:00 Temperature 98.3 F Pulse Rate 75 75 Respiratory Rate 14 Blood Pressure 122/51 L 122/51 L Pulse Oximetry 100 100 Oxygen Delivery Nasal Cannula Oxygen Flow Rate 2 05/17/22 12:00 05/17/22 14:00 05/17/22 14:00 Temperature Pulse Rate 77 95 87 Respiratory Rate Blood Pressure 111/74 Pulse Oximetry Oxygen Delivery Oxygen Flow Rate 05/17/22 14:00 05/17/22 16:00 05/17/22 16:35 Temperature 98.7 F Pulse Rate 87 83 86 Respiratory Rate 20 17 Blood Pressure 129/98 H 115/66 122/50 L Pulse Oximetry 100 97 Oxygen Delivery Oxygen Flow Rate 05/17/22 16:00 05/17/22 18:00 05/17/22 18:00 Temperature Pulse Rate 84 77 77 Respiratory Rate 22 H Blood Pressure 123/88 Pulse Oximetry 95 Oxygen Delivery Oxygen Flow Rate 05/17/22 18:07 05/17/22 16:00 05/17/22 20:00 Temperature Pulse Rate 77 87 Respiratory Rate Blood Pressure 123/88 Pulse Oximetry 95 Oxygen Delivery Room Air Oxygen Flow Rate 05/17/22 20:00 05/17/22 20:00 05/17/22 22:00 Temperature 99.0 F Pulse Rate 87 87 87 Respiratory Rate 13 13 Blood Pressure 118/59 L Pulse Oximetry 95 96 Oxygen Delivery Room Air Oxygen Flow Rate 05/17/22 22:00 05/18/22 00:00 05/18/22 00:00 Temperature Pulse Rate 87 90 90 Respiratory Rate 22 H 22 H Blood Pressure 103/54 L Pulse Oximetry 99 96 Oxygen Delivery Room Air Oxygen Flow Rate 05/18/22 00:00 05/18/22 01:08 05/18/22 02:00 Temperature 98.9 F Pulse Rate 90 91 91 Respiratory Rate 21 H Blood Pressure 108/61 72/50 L Pulse Oximetry 96 Oxygen Delivery Oxygen Flow Rate 05/18/22 02:00 05/18/22 02:36 03
[2022-05-18 09:13] LABS: Basophils Absolute Auto 0.1 K/mm3 (0.0-0.1); Basophils Percent Auto 0.4 % (0.2-1.2); Eosinophils Absolute Auto 0.1 K/mm3 (0-0.3); Eosinophils Percent Auto 0.9 % (0-4.4); Hemoglobin 8.4 g/dL (12.0-15.0); Immature Granulocyte Absolute 0.12 K/mm3 (0.00-0.031); Lymphocytes Absolute Auto 0.55 K/mm3 (0.9-3.2); Lymphocytes Percent Auto 4.7 % (18.3-44.2); Mean Corpuscular Hemoglobin 27.4 pg (26-34); Mean Corpuscular Volume 91.2 fl (80-100); Mean Platelet Volume 8.6 fl (7.4-10.4); Monocytes Absolute Auto 0.4 K/mm3 (0.1-0.6); Monocytes Percent Auto 3.5 % (2.6-8.5); Neutrophils Absolute Auto 10.5 K/mm3 (1.3-6.7); Neutrophils Percent Auto 89.5 % (45.5-73.1); Platelet Count Result 307 k/mm3 (150-375); Red Blood Count 3.07 M/mm3 (4.2-5.4); Red Cell Distribution Width 18.6 % (11.5-14.5); White Blood Count 11.7 K/mm3 (4.5-10.0)
[2022-05-18 09:26] LABS: Alanine Aminotransferase 21 U/L (6-35); Albumin Level 3.3 g/dL (3.5-5.1); Alkaline Phosphatase 58 U/L (38-126); Anion Gap 12 mmol/L (8-16); Aspartate Amino Transferase 38 U/L (14-36); Bilirubin,Total 0.6 mg/dL (0.2-1.3); Blood Urea Nitrogen 47 mg/dL (7-17); Calcium 8.2 mg/dL (8.4-10.2); Carbon Dioxide 19 mmol/L (22-30); Chloride 106 mmol/L (98-107); Estimated CRCL calculation 38 ml/min; Estimated Glomerular Filt Rate 60; Glucose 238 mg/dL (65-110); Potassium 3.7 mmol/L (3.4-5.0); Sodium 137 mmol/L (137-145)
--- NOTE | 2022-05-18 10:52 | PCFNICU ---
ICU Rounding Note: Pt current nutrition is DBCC. Last recorded weight is 69 kg. Bowel Motility:+Bm reported 3/ Labs Reviewed:No labs to report. Meds Noted:Lipitor, Protonix Skin: Stage III PU-Sacrum Additional Notes: Patient currently on a DBCC diet with Joe BID. Oral Intake at least 75% of meals. tolerating diet. Agree with diet orders. Following daily in ICU rounds. RD will monitor every 7 days.
[2022-05-18 11:55] LABS: Glucose Point of Care 181 mg/dl (65-105)
[2022-05-18 16:02] LABS: Glucose Point of Care 189 mg/dl (65-105)
[2022-05-18] MEDS: metroNIDAZOLE 500 MG/ISO 100ML 500 MG/100 ML BAG 100 MG IVPB (19:00)
[2022-05-18 19:50] LABS: Glucose Point of Care 235 mg/dl (65-105)
--- NOTE | 2022-05-18 21:35 | PC.NURSE ---
2129 Patient's BP starting to trend down again. At 2029 BP was 100/38. At 2099 it was 100/46 and at 2129 it was 87/47. FRANCY Tom was called and notified. She ordered a 1 Liter bolus of normal saline x 1 now and if there's no improvement in BP, change patient back to ICU status and restart the Levophed drip.
[2022-05-18] MEDS: SODIUM CHLORIDE 0.9% IV 1,000 ML 999 ML IV CONT (22:03)
[2022-05-19] VITALS (11 sets, daily range): BP systolic 108–143; BP diastolic 44–88; PULSE 72–88; RESP 15–24; TEMP 36.5–37.7; O2SAT 97–100
[2022-05-19] MEDS: metroNIDAZOLE 500 MG/ISO 100ML 500 MG/100 ML BAG 100 MG IVPB ×3 (00:51→12:15)
[2022-05-19 04:51] LABS: Basophils Percent Auto 0.4 % (0.2-1.2); Eosinophils Absolute Auto 0.1 K/mm3 (0-0.3); Eosinophils Percent Auto 1.6 % (0-4.4); Hematocrit 23.9 % (37.0-47.0); Hemoglobin 7.5 g/dL (12.0-15.0); Immature Granulocyte Absolute 0.09 K/mm3 (0.00-0.031); Immature Granulocyte Percent A 1.1 % (0-0.5); Mean Corpuscular HGB Conc 31.4 g/dl (32-36); Mean Corpuscular Hemoglobin 28.2 pg (26-34); Mean Corpuscular Volume 89.8 fl (80-100); Mean Platelet Volume 9.1 fl (7.4-10.4); Monocytes Absolute Auto 0.5 K/mm3 (0.1-0.6); Monocytes Percent Auto 6.3 % (2.6-8.5); Neutrophils Absolute Auto 6.5 K/mm3 (1.3-6.7); Neutrophils Percent Auto 80.6 % (45.5-73.1); Platelet Count Result 283 k/mm3 (150-375); Red Blood Count 2.66 M/mm3 (4.2-5.4); Red Cell Distribution Width 18.3 % (11.5-14.5)
[2022-05-19 05:05] LABS: Alanine Aminotransferase 16 U/L (6-35); Albumin Level 2.9 g/dL (3.5-5.1); Alkaline Phosphatase 44 U/L (38-126); Anion Gap 8 mmol/L (8-16); Aspartate Amino Transferase 27 U/L (14-36); Bilirubin,Total 0.5 mg/dL (0.2-1.3); Blood Urea Nitrogen 49 mg/dL (7-17); Calcium 7.8 mg/dL (8.4-10.2); Carbon Dioxide 21 mmol/L (22-30); Chloride 108 mmol/L (98-107); Estimated CRCL calculation 46 ml/min; Estimated Glomerular Filt Rate > 60; Glucose 183 mg/dL (65-110); Potassium 3.2 mmol/L (3.4-5.0); Sodium 137 mmol/L (137-145)
[2022-05-19] MEDS: CENTRAL LINE FLUSH 10 ML IV PUSH ×4 (05:42→20:34)
[2022-05-19] MEDS: LEVOTHYROXINE SODIUM 100 MCG TABLET PO (05:42)
[2022-05-19 08:10] LABS: Glucose Point of Care 192 mg/dl (65-105)
[2022-05-19] MEDS: HEPARIN SODIUM 5,000 UNITS/ML VIAL 5000 UNITS SUB-Q ×2 (08:25→20:33)
[2022-05-19] MEDS: GABAPENTIN 300 MG CAPSULE PO ×3 (08:26→17:14)
[2022-05-19] MEDS: ATORVASTATIN 40 MG TABLET PO (08:26)
[2022-05-19] MEDS: PANTOPRAZOLE 40 MG TABLET PO (08:26)
[2022-05-19 12:02] LABS: Glucose Point of Care 238 mg/dl (65-105)
[2022-05-19] MEDS: INSULIN ASPART (*BKC) 100 UNITS/ML SUB-Q (12:15)
[2022-05-19 17:12] LABS: Glucose Point of Care 106 mg/dl (65-105)
--- NOTE | 2022-05-19 17:22 | PC.NURSE ---
This patient, Iris Pascual, was transferred to [[id number]] on 05/19/22 at 1715. Personal belongings sent with patient. Report given to [Luisito PALMER]. Appropriate documentation sent with patient.
--- NOTE | 2022-05-19 17:44 | ADMGEN ---
This patient, Iris Pascual, was admitted to 2 Medical Room 260-01. Patient/family oriented to hospital policies and general routines including ID bracelet, bed and alarms, visiting hours, pain management, procedures, bathroom and other care routines, personal items, smoking policy, room service/diet, and visiting hours. Information on how to activate the Rapid Response Team has been discussed. Patient/Family are encouraged to report perceived risks to care and to ask questions if they do not understand what they are told or what they should do.
--- NOTE | 2022-05-19 18:15 | PM.IMPN ---
Progress Note: A&P Assessment and Plan (1) Abnormal CT of the abdomen: Code(s): R93.5 - Abnormal findings on diagnostic imaging of other abdominal regions, including retroperitoneum Status: Acute (2) Acute metabolic encephalopathy: Code(s): G93.41 - Metabolic encephalopathy Status: Acute (3) Septic shock: Code(s): A41.9 - Sepsis, unspecified organism; R65.21 - Severe sepsis with septic shock Status: Acute (4) Acute kidney injury: Code(s): N17.9 - Acute kidney failure, unspecified Status: Acute Plan (1) Septic shock: Levophed weaned off Source is likely pyelitis, cont imipenem CHF: chronic HFrEF and HFpEF (EF 20-25%, grade 2 DD). Compensated. 2)Renal: - ABDIRASHID: due to hypoperfusion from sepsis and hypovolemia. Improved. Monitor UOP and SCr. 3)Pyelitis: no stone on CT. Follow cultures, continue empiric imipenem for now. Diarrhea resolved 4)Anemia: no bleeding noted. Received 1u pRBC in ED. Stable. 5)Diabetes Mellitus: BG check TID AC ns HS SS insulin 6)DVT ppx:Hep SQ 7)Code:Full 8)Dispo:pending improvement Subjective Date/time seen: 05/19/22 18:15 Interval history: No overnight events noted. No chest pain or shortness of breath. No nausea, vomiting or diarrhea. No fevers or chills. Review of Systems Review of Systems: 12 point review of systems was assessed and was negative except as noted in the HPI Exam Narrative: General: No acute distress, alert and oriented per baseline HEENT: Atraumatic, normocephalic, mucous membranes dry CV: Regular rate and rhythm, S1, S2 Lungs: Clear to auscultation bilaterally, no rales or crackles noted, no wheezes, good air entry Abdomen: Soft, mildly tender to palpation, somewhat distended Extremities: Status post bilateral AKA Skin: No rashes noted, no lesions or wounds seen Objective Data Vital Signs Vital Signs: Vital Signs - 24 hr 05/18/22 20:00 05/18/22 20:00 05/18/22 20:00 Temperature 100.6 F H Pulse Rate 84 84 84 Respiratory Rate 17 17 Blood Pressure 127/59 L Pulse Oximetry 97 97 Oxygen Delivery Room Air 05/18/22 22:00 05/19/22 00:00 05/19/22 00:00 Temperature Pulse Rate 81 78 78 Respiratory Rate 17 Blood Pressure Pulse Oximetry 97 Oxygen Delivery Room Air 05/19/22 00:00 05/18/22 22:00 05/19/22 02:00 Temperature 99.4 F Pulse Rate 78 75 Respiratory Rate 17 Blood Pressure 114/51 L 135/65 Pulse Oximetry 98 Oxygen Delivery 05/19/22 02:00 05/19/22 04:00 05/19/22 04:00 Temperature Pulse Rate 75 73 73 Respiratory Rate 15 15 Blood Pressure 119/50 L Pulse Oximetry 97 Oxygen Delivery Room Air 05/19/22 04:00 05/19/22 06:00 05/19/22 06:00 Temperature 99.8 F H Pulse Rate 74 72 72 Respiratory Rate 15 15 Blood Pressure 114/52 L 116/44 L Pulse Oximetry 97 97 Oxygen Delivery 05/19/22 08:00 05/19/22 08:00 05/19/22 08:00 Temperature 98.3 F Pulse Rate 74 73 Respiratory Rate 15 Blood Pressure 108/44 L Pulse Oximetry 100 Oxygen Delivery Room Air 05/19/22 10:00 05/19/22 12:00 05/19/22 12:00 Temperature 98.5 F Pulse Rate 81 88 86 Respiratory Rate 24 H Blood Pressure 143/85 H Pulse Oximetry 100 Oxygen Delivery 05/19/22 14:00 05/19/22 16:00 05/19/22 16:00 Temperature Pulse Rate 80 79 83 Respiratory Rate 22 H Blood Pressure 122/65 Pulse Oximetry 97 Oxygen Delivery 05/19/22 17:37 05/19/22 17:44 Temperature 98.3 F Pulse Rate 84 Respiratory Rate 19 Blood Pressure 131/88 Pulse Oximetry 100 Oxygen Delivery Room Air Intake/Output Intake/Output: Intake & Output 05/16/22 05/17/22 05/18/22 05/19/22 23:59 23:59 23:59 23:59 Intake Total 3850 1800 2525 1220 Output Total 950 1700 1275 1200 Balance 2900 100 1250 20 Meds/Results Medications: Active Medications Generic Name Dose Route Start Last Admin Trade Name Freq PRN Reason Stop Dose Admin
[2022-05-19 21:07] LABS: Glucose Point of Care 165 mg/dl (65-105)
[2022-05-20] VITALS: BP 130/61; PULSE 76; RESP 18; TEMP 36.2; O2SAT 98
[2022-05-20 03:28] VITALS: BP 135/55; PULSE 72; RESP 18; TEMP 36.3; O2SAT 96
[2022-05-20] MEDS: LEVOTHYROXINE SODIUM 100 MCG TABLET PO (05:22)
[2022-05-20] MEDS: CENTRAL LINE FLUSH 10 ML IV PUSH ×3 (05:22→21:27)
[2022-05-20 06:07] LABS: Hematocrit 24.9 % (37.0-47.0); Hemoglobin 7.8 g/dL (12.0-15.0); Mean Corpuscular HGB Conc 31.3 g/dl (32-36); Mean Corpuscular Hemoglobin 28.1 pg (26-34); Mean Corpuscular Volume 89.6 fl (80-100); Mean Platelet Volume 9.2 fl (7.4-10.4); Platelet Count Result 290 k/mm3 (150-375); Red Blood Count 2.78 M/mm3 (4.2-5.4); Red Cell Distribution Width 17.8 % (11.5-14.5); White Blood Count 7.5 K/mm3 (4.5-10.0)
[2022-05-20 06:22] LABS: Alanine Aminotransferase 14 U/L (6-35); Albumin Level 2.9 g/dL (3.5-5.1); Alkaline Phosphatase 36 U/L (38-126); Anion Gap 7 mmol/L (8-16); Aspartate Amino Transferase 23 U/L (14-36); Bilirubin,Total 0.4 mg/dL (0.2-1.3); Blood Urea Nitrogen 42 mg/dL (7-17); Calcium 7.9 mg/dL (8.4-10.2); Carbon Dioxide 20 mmol/L (22-30); Chloride 104 mmol/L (98-107); Estimated CRCL calculation 46 ml/min; Estimated Glomerular Filt Rate > 60; Glucose 145 mg/dL (65-110); Sodium 131 mmol/L (137-145)
[2022-05-20 08:24] LABS: Glucose Point of Care 135 mg/dl (65-105)
[2022-05-20] MEDS: GABAPENTIN 300 MG CAPSULE PO ×3 (08:36→17:06)
[2022-05-20] MEDS: HEPARIN SODIUM 5,000 UNITS/ML VIAL 5000 UNITS SUB-Q ×2 (08:36→21:27)
[2022-05-20] MEDS: PANTOPRAZOLE 40 MG TABLET PO (08:37)
[2022-05-20 08:44] VITALS: BP 152/49; PULSE 77; RESP 17; TEMP 36.3; O2SAT 98
[2022-05-20] MEDS: ATORVASTATIN 40 MG TABLET PO (09:12)
[2022-05-20 09:15] LABS: Basophils Percent Auto 0.4 % (0.2-1.2); Eosinophils Absolute Auto 0.1 K/mm3 (0-0.3); Eosinophils Percent Auto 1.6 % (0-4.4); Immature Granulocyte Absolute 0.13 K/mm3 (0.00-0.031); Immature Granulocyte Percent A 1.7 % (0-0.5); Lymphocytes Absolute Auto 0.97 K/mm3 (0.9-3.2); Lymphocytes Percent Auto 12.7 % (18.3-44.2); Monocytes Absolute Auto 0.6 K/mm3 (0.1-0.6); Monocytes Percent Auto 7.3 % (2.6-8.5); Neutrophils Absolute Auto 5.8 K/mm3 (1.3-6.7); Neutrophils Percent Auto 76.3 % (45.5-73.1)
--- NOTE | 2022-05-20 10:56 | PM.IMPN ---
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 She was admitted to the ICU with imipenem, central line placement and pressors as well as a blood transfusion of 1 unit. She was able to be weaned off pressors 05/18 and moved out of the ICU 05/19. 1) Septic shock: source is thought to be cystitis with pyelitis and possibly associated colitis, all resolving on imipenem 03/14 blood cultures came back proteus, likely not sens to imipenem, will transition abx to rocephin today and monitor follow sens on blood cultures re: proteus repeat blood cultures NGTD urine culture was negative, suspect false negative due to orange/cloudy urine ad hematuria, will assume proteus infection CHF: chronic HFrEF and HFpEF (EF 20-25%, grade 2 DD). Compensated. 2)Renal: ABDIRASHID: resolved, likely due to hypoperfusion from sepsis and hypovolemia 3)Pyelitis: as above no stone on CT urine culture was negative, however, thought to be false negative diarrhea resolved on imipenem, transition to rocephin due to proteus 4)Anemia: no bleeding noted. Received 1u pRBC in ED. Stable. 5)Diabetes Mellitus: BG check TID AC ns HS SS insulin 6) Hypokalemia: replace and recheck 7)Hyponatremia: gentle IVF and recheck 8)DVT ppx:Hep SQ 9)Code:Full 10)Dispo:likely in the next 1-2 days on oral antibiotics Subjective Date/time seen: 05/20/22 10:56 Interval history: No overnight events noted. No chest pain or shortness of breath. No nausea, vomiting or diarrhea. No fevers or chills. Patient states she feels much better and is ready to go back to the facility. No complaints. Review of Systems Review of Systems: 12 point review of systems was assessed and was negative except as noted in the HPI Exam Narrative: General: No acute distress, alert and oriented per baseline HEENT: Atraumatic, normocephalic, mucous membranes moist CV: Regular rate and rhythm, S1, S2 Lungs: Clear to auscultation bilaterally, no rales or crackles noted, no wheezes, good air entry Abdomen: Soft, nontender, nondistended Extremities: Status post bilateral AKA Skin: No rashes noted, no lesions or wounds seen Objective Data Vital Signs Vital Signs: Vital Signs - 24 hr 05/19/22 12:00 05/19/22 12:00 05/19/22 14:00 Temperature 98.5 F Pulse Rate 88 86 80 Respiratory Rate 24 H Blood Pressure 143/85 H Pulse Oximetry 100 Oxygen Delivery 05/19/22 16:00 05/19/22 16:00 05/19/22 17:37 Temperature 98.3 F Pulse Rate 79 83 84 Respiratory Rate 22 H 19 Blood Pressure 122/65 131/88 Pulse Oximetry 97 100 Oxygen Delivery 05/19/22 17:44 05/19/22 20:00 05/20/22 00:00 Temperature 97.7 F 97.2 F L Pulse Rate 81 76 Respiratory Rate 18 18 Blood Pressure 125/65 130/61 Pulse Oximetry 97 98 Oxygen Delivery Room Air 05/20/22 03:28 05/20/22 08:44 Temperature 97.3 F L 97.4 F L Pulse Rate 72 77 Respiratory Rate 18 17 Blood Pressure 135/55 L 152/49 H Pulse Oximetry 96 98 Oxygen Delivery Intake/Output Intake/Output: Intake & Output 05/17/22 05/18/22 05/19/22 05/20/22 23:59 23:59 23:59 23:59 Intake Total 1800 2525 1320 600 Output Total 1700 1275 1250 250 Balance 100 1250 70 350 Meds/Results Medications: Active Medications Generic Name Dose Route Start Last Admin Trade Name Freq PRN Reaso
[2022-05-20 12:24] LABS: Glucose Point of Care 166 mg/dl (65-105)
[2022-05-20 12:34] VITALS: BP 138/55; PULSE 77; RESP 17; TEMP 36.5; O2SAT 97
[2022-05-20] MEDS: cefTRIAXone 2 GM/NS 100 ML 2 GM/100 ML BAG IVPB (12:49)
[2022-05-20] MEDS: POTASSIUM CHLORIDE 20 MEQ TABLET 40 MEQ PO (12:49)
[2022-05-20 17:11] LABS: Glucose Point of Care 227 mg/dl (65-105)
[2022-05-20] MEDS: INSULIN ASPART (*BKC) 100 UNITS/ML SUB-Q (17:12)
[2022-05-20 17:52] VITALS: BP 172/60; PULSE 83; RESP 18; TEMP 36.7; O2SAT 100
[2022-05-20 20:00] VITALS: BP 113/75; PULSE 80; RESP 16; TEMP 36.6; O2SAT 98
[2022-05-21] VITALS: BP 157/48; PULSE 79; RESP 12; TEMP 37.3; O2SAT 95
[2022-05-21 04:00] VITALS: BP 107/70; PULSE 74; RESP 12; TEMP 36.6; O2SAT 96
[2022-05-21] MEDS: CENTRAL LINE FLUSH 10 ML IV PUSH ×2 (05:51→13:45)
[2022-05-21] MEDS: LEVOTHYROXINE SODIUM 100 MCG TABLET PO (05:51)
[2022-05-21 05:56] LABS: Basophils Percent Auto 0.3 % (0.2-1.2); Eosinophils Absolute Auto 0.2 K/mm3 (0-0.3); Eosinophils Percent Auto 1.8 % (0-4.4); Hematocrit 25.6 % (37.0-47.0); Hemoglobin 7.9 g/dL (12.0-15.0); Immature Granulocyte Absolute 0.15 K/mm3 (0.00-0.031); Immature Granulocyte Percent A 1.7 % (0-0.5); Lymphocytes Absolute Auto 1.22 K/mm3 (0.9-3.2); Lymphocytes Percent Auto 13.8 % (18.3-44.2); Mean Corpuscular HGB Conc 30.9 g/dl (32-36); Mean Corpuscular Hemoglobin 27.6 pg (26-34); Mean Corpuscular Volume 89.5 fl (80-100); Mean Platelet Volume 8.9 fl (7.4-10.4); Monocytes Absolute Auto 0.7 K/mm3 (0.1-0.6); Monocytes Percent Auto 7.9 % (2.6-8.5); Neutrophils Absolute Auto 6.6 K/mm3 (1.3-6.7); Neutrophils Percent Auto 74.5 % (45.5-73.1); Platelet Count Result 299 k/mm3 (150-375); Red Blood Count 2.86 M/mm3 (4.2-5.4); Red Cell Distribution Width 17.5 % (11.5-14.5); White Blood Count 8.8 K/mm3 (4.5-10.0)
[2022-05-21 06:30] LABS: Alanine Aminotransferase 13 U/L (6-35); Albumin Level 2.9 g/dL (3.5-5.1); Alkaline Phosphatase 52 U/L (38-126); Anion Gap 4 mmol/L (8-16); Aspartate Amino Transferase 27 U/L (14-36); Bilirubin,Total 0.4 mg/dL (0.2-1.3); Blood Urea Nitrogen 39 mg/dL (7-17); Calcium 7.9 mg/dL (8.4-10.2); Carbon Dioxide 25 mmol/L (22-30); Chloride 104 mmol/L (98-107); Estimated CRCL calculation 66 ml/min; Estimated Glomerular Filt Rate > 60; Glucose 224 mg/dL (65-110); Potassium 3.6 mmol/L (3.4-5.0); Sodium 133 mmol/L (137-145)
[2022-05-21 08:00] VITALS: BP 118/62; PULSE 72; RESP 14; TEMP 36.5; O2SAT 95
[2022-05-21 08:53] LABS: Glucose Point of Care 339 mg/dl (65-105)
[2022-05-21] MEDS: GABAPENTIN 300 MG CAPSULE PO ×3 (09:00→17:19)
[2022-05-21] MEDS: ATORVASTATIN 40 MG TABLET PO (09:00)
[2022-05-21] MEDS: HEPARIN SODIUM 5,000 UNITS/ML VIAL 5000 UNITS SUB-Q ×2 (09:01→20:27)
[2022-05-21] MEDS: PANTOPRAZOLE 40 MG TABLET PO (09:01)
[2022-05-21 09:08] LABS: Glucose Point of Care 198 mg/dl (65-105)
--- NOTE | 2022-05-21 09:45 | PM.IMPN ---
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 She was admitted to the ICU 05/16 with imipenem, central line placement and pressors as well as a blood transfusion of 1 unit. She was able to be weaned off pressors 05/18 and moved out of the ICU 05/19. Septic shock: source is thought to be cystitis with pyelitis and possibly associated colitis, all resolving blood cx proteus, cont IV abx with rocephin for now, d/c rocephin when repeat blood cx negative and start amoxicillin, goal of 10-14 days total abx therapy, end date 06/02/22 repeat blood cultures NGTD urine culture was negative, suspect false negative due to orange/cloudy urine and hematuria, will assume proteus infection CHF: chronic HFrEF and HFpEF (EF 20-25%, grade 2 DD). Compensated. Renal: ABDIRASHID: resolved, likely due to hypoperfusion from sepsis and hypovolemia Pyelitis: as above no stone on CT urine culture was negative, however, thought to be false negative diarrhea resolved on imipenem, transition to rocephin due to proteus Anemia: no bleeding noted. Received 1u pRBC in ED. Stable. Diabetes Mellitus: BG check TID AC ns HS SS insulin Hypokalemia: resolved Hyponatremia: resolving off IVF DVT ppx:Hep SQ Code:Full Dispo:when repeat bld cx negative on oral amoxicillin for 14 days total Subjective Date/time seen: 05/21/22 09:45 Interval history: No overnight events noted. No chest pain or shortness of breath. No nausea, vomiting or diarrhea. No fevers or chills. She is eager to have her central line removed and go back to the facility. Review of Systems Review of Systems: 12 point review of systems was assessed and was negative except as noted in the HPI Exam Narrative: General: No acute distress, alert and oriented per baseline HEENT: Atraumatic, normocephalic, mucous membranes moist CV: Regular rate and rhythm, S1, S2 Lungs: Clear to auscultation bilaterally, no rales or crackles noted, no wheezes, good air entry Abdomen: Soft, nontender, nondistended Extremities: Status post bilateral AKA Skin: No rashes noted, no lesions or wounds seen Objective Data Vital Signs Vital Signs: Vital Signs - 24 hr 05/20/22 12:34 05/20/22 17:52 05/20/22 20:00 Temperature 97.7 F 98.0 F Pulse Rate 77 83 Respiratory Rate 17 18 Blood Pressure 138/55 L 172/60 H Pulse Oximetry 97 100 Oxygen Delivery Room Air 05/20/22 20:00 05/21/22 00:00 05/21/22 04:00 Temperature 98 F 99.1 F 97.9 F Pulse Rate 80 79 74 Respiratory Rate 16 12 12 Blood Pressure 113/75 157/48 H 107/70 Pulse Oximetry 98 95 96 Oxygen Delivery Intake/Output Intake/Output: Intake & Output 05/18/22 05/19/22 05/20/22 05/21/22 23:59 23:59 23:59 23:59 Intake Total 2525 1320 1290 620 Output Total 1275 1250 1250 625 Balance 1250 70 40 -5 Meds/Results Medications: Active Medications Generic Name Dose Route Start Last Admin Trade Name Shunq PRN Reason Stop Dose Admin Atorvastatin Calcium 40 mg 05/17/22 09:00 05/21/22 09:00 Atorvastatin 40 Mg Tablet PO 40 mg DAILY KASIE Administration Bisacodyl 10 mg 05/17/22 00:44 Bisacodyl 10 Mg Suppository RECTAL PRN PRN Constipation Dextrose 12.5 gm 05/17/22 00:45 Dextrose 50% 25 Gm/50 Ml Syringe IV PUSH PRN PRN Hypoglycemia Protocol
[2022-05-21] MEDS: cefTRIAXone 2 GM/NS 100 ML 2 GM/100 ML BAG IVPB (11:47)
[2022-05-21 12:00] VITALS: BP 122/74; PULSE 70; RESP 14; TEMP 36.5; O2SAT 95
[2022-05-21 12:14] LABS: Glucose Point of Care 267 mg/dl (65-105)
[2022-05-21] MEDS: INSULIN ASPART (*BKC) 100 UNITS/ML SUB-Q ×2 (12:21→17:20)
[2022-05-21 16:00] VITALS: BP 124/72; PULSE 72; RESP 14; TEMP 36.4; O2SAT 94
[2022-05-21] MEDS: NEOMYCIN/POLYMYXIN/BACITRACIN OINTMENT PACKET 1 PACKET (16:25)
[2022-05-21 17:17] LABS: Glucose Point of Care 238 mg/dl (65-105)
[2022-05-21 20:00] VITALS: BP 150/40; PULSE 76; RESP 20; TEMP 36.6; O2SAT 100
[2022-05-22] VITALS: BP 151/43; PULSE 76; RESP 16; TEMP 36.6; O2SAT 100
[2022-05-22 04:00] VITALS: BP 152/53; PULSE 76; RESP 12; TEMP 36.4; O2SAT 99
--- NOTE | 2022-05-22 05:08 | PC.NURSE ---
Assumed care of this pt from SPENCER Fraga.
[2022-05-22] MEDS: LEVOTHYROXINE SODIUM 100 MCG TABLET PO (05:28)
[2022-05-22 05:46] LABS: Basophils Percent Auto 0.4 % (0.2-1.2); Eosinophils Absolute Auto 0.2 K/mm3 (0-0.3); Eosinophils Percent Auto 2.1 % (0-4.4); Hemoglobin 8.3 g/dL (12.0-15.0); Immature Granulocyte Absolute 0.17 K/mm3 (0.00-0.031); Immature Granulocyte Percent A 1.9 % (0-0.5); Lymphocytes Absolute Auto 1.41 K/mm3 (0.9-3.2); Lymphocytes Percent Auto 15.4 % (18.3-44.2); Mean Corpuscular HGB Conc 30.7 g/dl (32-36); Mean Corpuscular Hemoglobin 27.9 pg (26-34); Mean Corpuscular Volume 90.6 fl (80-100); Mean Platelet Volume 9.3 fl (7.4-10.4); Monocytes Absolute Auto 0.6 K/mm3 (0.1-0.6); Monocytes Percent Auto 6.4 % (2.6-8.5); Neutrophils Absolute Auto 6.8 K/mm3 (1.3-6.7); Neutrophils Percent Auto 73.8 % (45.5-73.1); Platelet Count Result 325 k/mm3 (150-375); Red Blood Count 2.98 M/mm3 (4.2-5.4); Red Cell Distribution Width 17.6 % (11.5-14.5); White Blood Count 9.2 K/mm3 (4.5-10.0)
[2022-05-22 06:04] LABS: Alanine Aminotransferase 11 U/L (6-35); Albumin Level 2.8 g/dL (3.5-5.1); Alkaline Phosphatase 61 U/L (38-126); Anion Gap 4 mmol/L (8-16); Aspartate Amino Transferase 19 U/L (14-36); Bilirubin,Total 0.4 mg/dL (0.2-1.3); Blood Urea Nitrogen 29 mg/dL (7-17); Calcium 7.9 mg/dL (8.4-10.2); Carbon Dioxide 25 mmol/L (22-30); Chloride 109 mmol/L (98-107); Estimated CRCL calculation 65 ml/min; Estimated Glomerular Filt Rate > 60; Glucose 183 mg/dL (65-110); Potassium 3.2 mmol/L (3.4-5.0); Sodium 138 mmol/L (137-145)
[2022-05-22 08:30] VITALS: BP 136/46; PULSE 76; RESP 13; TEMP 36.9; O2SAT 99
[2022-05-22 08:38] LABS: Glucose Point of Care 210 mg/dl (65-105)
[2022-05-22] MEDS: INSULIN ASPART (*BKC) 100 UNITS/ML SUB-Q ×2 (08:41→17:46)
[2022-05-22] MEDS: ATORVASTATIN 40 MG TABLET PO (08:41)
[2022-05-22] MEDS: GABAPENTIN 300 MG CAPSULE PO ×3 (08:41→17:46)
[2022-05-22] MEDS: PANTOPRAZOLE 40 MG TABLET PO (08:41)
[2022-05-22] MEDS: HEPARIN SODIUM 5,000 UNITS/ML VIAL 5000 UNITS SUB-Q ×2 (08:41→20:28)
[2022-05-22] MEDS: cefTRIAXone 2 GM/NS 100 ML 2 GM/100 ML BAG IVPB (11:10)
[2022-05-22 12:00] VITALS: BP 130/52; PULSE 72; RESP 14; TEMP 36.8; O2SAT 99
[2022-05-22 12:36] LABS: Glucose Point of Care 181 mg/dl (65-105)
--- NOTE | 2022-05-22 12:54 | PM.DS ---
DS: Admitting Diagnosis Discharge Date 05/22/2022 Admitting Diagnosis Altered mental status DS: Discharge Diagnosis Discharge Diagnosis (1) Abnormal CT of the abdomen: Code(s): R93.5 - Abnormal findings on diagnostic imaging of other abdominal regions, including retroperitoneum Status: Acute (2) Acute metabolic encephalopathy: Code(s): G93.41 - Metabolic encephalopathy Status: Acute (3) Septic shock: Code(s): A41.9 - Sepsis, unspecified organism; R65.21 - Severe sepsis with septic shock Status: Acute (4) Acute kidney injury: Code(s): N17.9 - Acute kidney failure, unspecified Status: Acute Plan 67-year-old female with history of CHF in bilateral AKA is presenting with confusion, UTI/pyelitis, ?colitis, sepsis, anemia. She was admitted to the ICU 05/16 with imipenem, central line placement and pressors as well as a blood transfusion of 1 unit. She was able to be weaned off pressors 05/18 and moved out of the ICU 05/19. Septic shock: source is thought to be cystitis with pyelitis and possibly associated colitis, all resolving blood cx proteus, cont IV abx with rocephin for now, d/c rocephin when repeat blood cx negative and start amoxicillin, goal of 10-14 days total abx therapy, end date 06/02/22 repeat blood cultures NGTD urine culture was negative, suspect false negative due to orange/cloudy urine and hematuria, will assume proteus infection CHF: chronic HFrEF and HFpEF (EF 20-25%, grade 2 DD). Compensated. Diarrhea: Check C diff, give a dose of Imodium Could be antibiotic associated versus C diff, stable Renal: ABDIRASHID: resolved, likely due to hypoperfusion from sepsis and hypovolemia Pyelitis: as above no stone on CT urine culture was negative, however, thought to be false negative diarrhea resolved on imipenem, transition to rocephin due to proteus Anemia: no bleeding noted. Received 1u pRBC in ED. Stable. Diabetes Mellitus: BG check TID AC ns HS SS insulin Hypokalemia: resolved Hyponatremia: resolving off IVF DVT ppx:Hep SQ Code:Full Dispo:when repeat bld cx negative on oral amoxicillin for 14 days total DS: Summary Hospital Course Hospital Course: 67-year-old female with history of CHF in bilateral AKA is presenting with confusion, UTI/pyelitis, ?colitis, sepsis, anemia. She was admitted to the ICU 05/16 with imipenem, central line placement and pressors as well as a blood transfusion of 1 unit. She was able to be weaned off pressors 05/18 and moved out of the ICU 05/19. See above for details. Time Spent with Patient Time attestation: Total time spent providing and/or coordinating discharge services: Exam Narrative: General: No acute distress, alert and oriented per baseline HEENT: Atraumatic, normocephalic, mucous membranes moist CV: Regular rate and rhythm, S1, S2 Lungs: Clear to auscultation bilaterally, no rales or crackles noted, no wheezes, good air entry Abdomen: Soft, nontender, nondistended Extremities: Status post bilateral AKA Skin: No rashes noted, no lesions or wounds seen DS: Data Data Completed and Pending Labs on day of discharge: Labs from last 24 hours 05/22/22 05/22/22 05/22/22 12:12 08:34 05:03 WBC RBC Hgb Hct MCV MCH MCHC RDW Plt Count MPV Immature Gran % (Auto) Neut % (Auto) Lymph % (Auto) [place] % (Auto) Eos % (Auto) Baso % (Auto) Lymph # (Auto) [place] # (Auto) Eos # (Auto) Baso # (Auto) Abs Immat Gran (auto) Absolute Neuts (auto) Absolute Nucleated RBC Nucleated RBC % Sodium 138 Potassium 3.2 L Chloride 109 H Carbon Dioxide 25 Anion Gap 4 L BUN 29 H D Creatinine 0.70 Estim Creat Clear Calc 65 Estimated GFR > 60 Glucose 183 H POC Capillary Glucose 181 H 210 H Calcium 7.9 L Total Bilirubin 0.4 AST 19 ALT 11 Alkaline Phosphatase 61 Total Protein 7.0 Albumin 2.8
[2022-05-22] MEDS: POTASSIUM CHLORIDE 20 MEQ TABLET 40 MEQ PO (13:20)
[2022-05-22 16:00] VITALS: BP 136/46; PULSE 76; RESP 13; TEMP 36.9; O2SAT 99
[2022-05-22 17:11] LABS: Glucose Point of Care 274 mg/dl (65-105)
--- NOTE | 2022-05-22 18:08 | PM.IMPN ---
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 She was admitted to the ICU 05/16 with imipenem, central line placement and pressors as well as a blood transfusion of 1 unit. She was able to be weaned off pressors 05/18 and moved out of the ICU 05/19. Septic shock: source is thought to be cystitis with pyelitis and possibly associated colitis, all resolving blood cx proteus, cont IV abx with rocephin for now, d/c rocephin when repeat blood cx negative and start amoxicillin, goal of 10-14 days total abx therapy, end date 06/02/22 repeat blood cultures NGTD urine culture was negative, suspect false negative due to orange/cloudy urine and hematuria, will assume proteus infection CHF: chronic HFrEF and HFpEF (EF 20-25%, grade 2 DD). Compensated. Diarrhea: Check C diff, give a dose of Imodium Could be antibiotic associated versus C diff, stable Renal: ABDIRASHID: resolved, likely due to hypoperfusion from sepsis and hypovolemia Pyelitis: as above no stone on CT urine culture was negative, however, thought to be false negative diarrhea resolved on imipenem, transition to rocephin due to proteus Anemia: no bleeding noted. Received 1u pRBC in ED. Stable. Diabetes Mellitus: BG check TID AC ns HS SS insulin Hypokalemia: resolved Hyponatremia: resolving off IVF DVT ppx:Hep SQ Code:Full Dispo:when repeat bld cx negative on oral amoxicillin for 14 days total Subjective Date/time seen: 05/22/22 18:08 Interval history: No overnight events noted. No chest pain or shortness of breath. No nausea, vomiting. No fevers or chills. Central line removed. She is reporting that her diarrhea has come back and seems a little worse. Review of Systems Review of Systems: 12 point review of systems was assessed and was negative except as noted in the HPI Exam Narrative: General: No acute distress, alert and oriented per baseline HEENT: Atraumatic, normocephalic, mucous membranes moist CV: Regular rate and rhythm, S1, S2 Lungs: Clear to auscultation bilaterally, no rales or crackles noted, no wheezes, good air entry Abdomen: Soft, nontender, nondistended Extremities: Status post bilateral AKA Skin: No rashes noted, no lesions or wounds seen Objective Data Vital Signs Vital Signs: Vital Signs - 24 hr 05/21/22 20:00 05/21/22 20:00 05/22/22 00:00 Temperature 97.8 F 97.8 F Pulse Rate 76 76 Respiratory Rate 20 16 Blood Pressure 150/40 H 151/43 H Pulse Oximetry 100 100 Oxygen Delivery Room Air 05/22/22 04:00 05/22/22 08:30 05/22/22 08:15 Temperature 97.6 F 98.5 F Pulse Rate 76 76 Respiratory Rate 12 13 Blood Pressure 152/53 H 136/46 L Pulse Oximetry 99 99 Oxygen Delivery Room Air 05/22/22 12:00 Temperature 98.2 F Pulse Rate 72 Respiratory Rate 14 Blood Pressure 130/52 L Pulse Oximetry 99 Oxygen Delivery Intake/Output Intake/Output: Intake & Output 05/19/22 05/20/22 05/21/22 05/23/22 23:59 23:59 23:59 00:59 Intake Total 1320 1290 1460 690 Output Total 1250 1250 1275 350 Balance 70 40 185 340 Meds/Results Medications: Active Medications Generic Name Dose Route Start Last Admin Trade Name Freq PRN Reason Stop Dose Admin Atorvastatin Calcium 40 mg 05/17/22 09:00 05/22/22 08:41 Atorvastatin 40 Mg Tablet PO 40 mg DAILY [facility]
[2022-05-22 19:42] LABS: EDCOVIDSCREEN Negative (Negative)
[2022-05-22 20:00] VITALS: BP 147/65; PULSE 84; RESP 16; TEMP 36.6; O2SAT 100
--- NOTE | 2022-05-22 20:11 | PC.NURSE ---
Approximately 6 attempts made to give report to [facility]. Ambulance ETA is 2015. Cooker Mechanic aware and also attempted to make contact. Per care coordination, facility is aware the patient is returning. Discharge packet to be sent with patient and a call-back number is listed. Unable to give report at this time.
[2022-05-22 20:21] LABS: Glucose Point of Care 249 mg/dl (65-105)
== END 2022-05-22 20:45 | DRG 871 ==
LOC: ANHED 14:06 → ANHICU 22:08 → ANH2MED 05-22 12:58 → ANHICU 05-24 14:03
PROVIDERS: Internal Medicine; Admitting Provider Internal Medicine; Emergency Provider General Practice; Visit Provider Student in an Organized Health Care Education/Training Program
DX: A41.89 Other specified sepsis (principal); G93.41 Metabolic encephalopathy; R65.21 Severe sepsis with septic shock; I21.4 Non-ST elevation (NSTEMI) myocardial infarction; N12 Tubulo-interstitial nephritis, not specified as acute or chronic; N17.9 Acute kidney failure, unspecified; E87.1 Hypo-osmolality and hyponatremia; I50.42 Chronic combined systolic (congestive) and diastolic (congestive) heart failure; E87.21 Acute metabolic acidosis; N30.90 Cystitis, unspecified without hematuria; K52.9 Noninfective gastroenteritis and colitis, unspecified; I11.0 Hypertensive heart disease with heart failure; R93.5 Abnormal findings on diagnostic imaging of other abdominal regions, including retroperitoneum; D64.9 Anemia, unspecified; E78.5 Hyperlipidemia, unspecified; Z20.822 Contact with and (suspected) exposure to COVID-19; E87.6 Hypokalemia; B96.4 Proteus (mirabilis) (morganii) as the cause of diseases classified elsewhere; K21.9 Gastro-esophageal reflux disease without esophagitis; I25.5 Ischemic cardiomyopathy; F03.90 Unspecified dementia, unspecified severity, without behavioral disturbance, psychotic disturbance, mood disturbance, and anxiety; I73.9 Peripheral vascular disease, unspecified; Z66 Do not resuscitate; Z89.612 Acquired absence of left leg above knee; Z89.611 Acquired absence of right leg above knee; Z85.3 Personal history of malignant neoplasm of breast; Z85.850 Personal history of malignant neoplasm of thyroid
CPT/HCPCS: 36415; 36430; 36556; 36600; 51702; 70450; 71045; 74177; 80053; 81001; 82375; 82805; 82948; 83050; 83605; 83690; 84443; 84484; 85014; 85018; 85025; 85027; 85610; 85730; 86140; 86850; 86900; 86901; 86923; 87040; 87077; 87086; 87088; 87186; 87426; 87493; 93005; 96365; 96366; 96367; 99291; A9270; C1751; C9803; J0692; J0696; J0743; J1265; J1644; J1815; J3370; J7030; J7040; J7050; P9016; Q9967

== ENCOUNTER 2023-06-16 18:13 | Emergency (ER) | payer MEDICARE, MEDICAID, SELFPAY ==
[2023-06-16] VITALS (10 sets, daily range): BP systolic 102–128; BP diastolic 43–92; PULSE 72–99; RESP 12–17; TEMP 36.6–36.8; O2SAT 97–100
--- NOTE | ~2023-06-16 | XR_ITS ---
EXAMINATION: XR chest 1V portable Exam Date/Time: 06/16/2023 19:07 CDT HISTORY: sob Comparison: None available due to technical issues. RESULT: Lines, tubes, and devices: Left axillary clips. Lungs and pleura: Mild senescent change and streaky bibasilar atelectasis/scar. Cardiomediastinal silhouette: Calcified mediastinal nodes. Aortic arch calcification. Other: No acute osseous or upper abdominal finding. Status post left mastectomy. Calcified right crow ast mass IMPRESSION: No acute cardiopulmonary process. Calcified right breast mass, recommend comparison to outside studies if available, or nonemergent but timely diagnostic mammography and breast ultrasound for further evaluation. Reviewed, dictated and finalized at location [facility]. IMPRESSION: No acute cardiopulmonary process. Calcified right breast mass, recommend comparison to outside studies if availab le, or nonemergent but timely diagnostic mammography and breast ultrasound for further evaluation.
[2023-06-16 19:07] LABS: Influenza A QL RT-PCR Negative (Negative); Influenza B QL RT-PCR Negative (Negative); RSV RNA, RT-PCR Negative (Negative); SARS-CoV-2 RNA PCR Negative (Negative)
--- NOTE | 2023-06-16 19:20 | ED.GENADULT ---
HPI - General Adult General Chief complaint: Upper Respiratory Infection Stated complaint: COUGH,CONGESTION NOT HAPPY WITH FOOD CHOICE Time Seen by Provider: 06/16/23 19:10 History of Present Illness HPI narrative: Patient is a 68-year-old female who presents to the emergency department this evening from her extended care facility for a change of atmosphere. Patient states that they were not feed her which she wanted to eat and therefore she told him that she wanted to come to the emergency department. Patient admits to a chronic cough. She is currently denying any shortness of breath, any chest pain, any nausea, vomiting, abdominal pain, dysuria or hematuria, constipation, diarrhea, melena, hematochezia, fevers or chills. She also has headaches, dizziness, blurry visions, focal weakness, numbness and tingling. There are no other modifying, alleviating, or precipitating factors at this time. Related Data Home Medications Medication Instructions Recorded Confirmed Maalox Plus 30 ml PO Q8H PRN bloating 12/05/21 05/16/22 acetaminophen 325 mg capsule 650 mg PO Q6H PRN Pain (Scale 12/05/21 05/16/22 (Tylenol) Score 1-3) atorvastatin 40 mg tablet 40 mg PO DAILY 12/05/21 05/16/22 bisacodyl 10 mg rectal suppository 10 mg RECTAL PRN PRN Constipation 12/05/21 05/16/22 insulin aspart U-100 100 unit/mL See Rx Instructions .Route .COMPLEX 12/05/21 05/16/22 subcutaneous solution (Novolog U-100 Insulin aspart) levothyroxine 100 mcg tablet 100 mcg PO DAILY 12/05/21 05/16/22 loperamide 2 mg tablet (Imodium 2 mg PO PRN PRN Diarrhea 12/05/21 05/16/22 A-D) ondansetron HCl 4 mg tablet 4 mg PO Q8H PRN Nausea 12/05/21 05/16/22 gabapentin 300 mg capsule 300 mg PO TID 05/16/22 05/16/22 omeprazole 20 mg capsule,delayed 20 mg PO DAILY 05/16/22 05/16/22 release potassium chloride 10 mEq 10 meq PO DAILY 05/16/22 05/16/22 capsule,extended release Allergies Allergy/AdvReac Type Severity Reaction Status Date / Time codeine Allergy Unknown Verified 05/16/22 23:03 Review of Systems Review of Systems: All systems are reviewed and are negative unless stated otherwise in the HPI. [facility] Past Medical History Medical History Combined systolic and diastolic congestive heart failure echocardiogram 12/06/2021: Severely reduced right ventricular systolic function with EF of 20-25%, moderate left ventricular chamber enlargement, moderate left atrial enlargement, grade 2 diastolic dysfunction Dementia Diabetes GERD (gastroesophageal reflux disease) HTN (hypertension) Hyperlipidemia Peripheral vascular disease Psychiatric disorder Thyroid cancer Surgical History Surgical History History of lumpectomy of left breast History of right breast implant Patient reports that it was radiation implant History of thyroid surgery S/P AKA (above knee amputation) bilateral Family History Family History Mother Family history of type 2 diabetes mellitus, Onset Age: 55 Father Acute myocardial infarction, Onset Age: 58 Social History Social History Social History: The patient has advanced directive paperwork from the long-term that states she is a DNR. However the patient's family members that were in the ER stated that they wanted the patient to be a full code. The patient herself wishes to be a DNR/DNI. Patient is mildly confused but is seemed to be having capacity and understands consequences. Smoking status: Never smoker Second hand tobacco smoke exposure: No Alcohol intake: never Substance use: never Lack of Transportation: No Lack of Food: Never True Current Housing: I Have Housing Concerned About Future Housing: No Difficulty Paying Gas/Electric Bills: No Difficulty Paying
== END 2023-06-16 22:50 ==
LOC: ANHED 20:48
PROVIDERS: Emergency Medicine; Emergency Provider Emergency Medicine
DX: R05.9 Cough, unspecified (principal); N63.10 Unspecified lump in the right breast, unspecified quadrant; E11.9 Type 2 diabetes mellitus without complications; F03.90 Unspecified dementia, unspecified severity, without behavioral disturbance, psychotic disturbance, mood disturbance, and anxiety; K21.9 Gastro-esophageal reflux disease without esophagitis; I10 Essential (primary) hypertension; E78.5 Hyperlipidemia, unspecified; Z85.850 Personal history of malignant neoplasm of thyroid; Z79.4 Long term (current) use of insulin; Z20.822 Contact with and (suspected) exposure to COVID-19
CPT/HCPCS: 71045; 87637; 99283

== ENCOUNTER 2024-01-10 12:39 | Inpatient (IN) | payer MEDICARE, MEDICAID, SELFPAY ==
[2024-01-10] VITALS (8 sets, daily range): BP systolic 123–148; BP diastolic 41–96; PULSE 72–77; RESP 12–23; TEMP 36.4–36.8; O2SAT 98–100; BMI 27.7
--- NOTE | ~2024-01-10 | CT_ITS ---
EXAMINATION: CTA brain carotid DATE: 01/10/2024 15:30 INDICATION: Cerebrovascular accident. TECHNIQUE: Computed tomographic angiography (CTA) of the head was performed without and with 100 mL O mnipaque-350 intravenous contrast. CTA of the neck was performed with intravenous contrast. Automated exposure control and iterative reconstruction technique were employed. The dose-length product was 1 719.01 mGy-cm. Maximum intensity projection and volume rendered 3D-reconstructions were created by zhanna avila technologist on a separate workstation. COMPARISON: Head CT 05/16/2022 FINDINGS: HEAD CTA: There are scattered areas of low attenuation in the cerebral white matter, which is within normal limits for the patient's age. There is no intracranial hemorrhage, acute infarction, or abnorm al intracranial mass lesion. The ventricles are normal in size. There is mild mucosal thickening in t he ethmoid sinuses. There is a small right mastoid effusion. Right vertebral artery is dominant. Ther e is moderate stenosis of distal left vertebral artery. There is no significant stenosis of basilar a rtery or the posterior cerebral arteries. There is no significant stenosis of the intracranial news intern al carotid arteries or anterior or middle cerebral arteries. Anterior communicating artery is normal. The posterior communicating arteries are normal. There is no aneurysm. NECK CTA: There is a small right pleural effusion. Partially visualized is a chronic cystic mass in r ight breast, likely a seroma. There are no pathologically enlarged lymph nodes. There is no significa nt stenosis of the cervical vertebral arteries. There is calcified atherosclerosis of the proximal in ternal carotid. There is 0% stenosis of the proximal right internal carotid artery relative to normal distal artery lumen diameter (NASCET criteria). There is 0% stenosis of the proximal left internal c arotid artery relative to normal distal artery lumen diameter. There is moderate cervical spondylosis . IMPRESSION: 1. Normal aging brain. 2. 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 3. 0% stenosis of the proximal internal carotid arteries relative to normal distal artery lumen diame ters (NASCET criteria). Reviewed, dictated and finalized at location B. IMPRESSION: 1. Normal aging brain. 2. 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 3. 0% stenosis of the proximal internal carotid arteries relative to normal dis dianne artery lumen diameters (NASCET criteria).
--- NOTE | 2024-01-10 13:55 | ED_ITS ---
HPI - General Adult General Chief complaint: Unspecified Stated complaint: slurred speech Time Seen by Provider: 01/10/24 13:42 History of Present Illness HPI narrative: 68-year-old female presenting to the emergency department for evaluation for increase slurred speech. shelter felt that the patient's speech was slurred. Patient does not feel that she has any sort speech and patient denies any acute numbness weakness or any complaints. Patient does have GI of diabetes and has bilateral above the knee amputation. Patient denies any prior history of stroke. Patient is A&O with a normal baseline neuro exam. Related Data Home Medications Medication Instructions Recorded Confirmed acetaminophen 325 mg capsule 650 mg PO Q6H PRN Pain (Scale 12/05/21 01/10/24 (Tylenol) Score 1-3) atorvastatin 40 mg tablet 40 mg PO DAILY 12/05/21 01/10/24 bisacodyl 10 mg rectal suppository 10 mg RECTAL PRN PRN Constipation 12/05/21 01/10/24 insulin aspart U-100 100 unit/mL See Rx Instructions .Route .COMPLEX 12/05/21 01/10/24 subcutaneous solution (Novolog U-100 Insulin aspart) levothyroxine 100 mcg tablet 100 mcg PO DAILY 12/05/21 01/10/24 ondansetron HCl 4 mg tablet 4 mg PO Q8H PRN Nausea 12/05/21 01/10/24 gabapentin 300 mg capsule 300 mg PO TID 05/16/22 01/10/24 omeprazole 20 mg capsule,delayed 20 mg PO DAILY 05/16/22 01/10/24 release potassium chloride 10 mEq 10 meq PO DAILY 05/16/22 01/10/24 capsule,extended release Lantus U-100 Insulin 8 unit subcut QHS 01/10/24 01/10/24 furosemide 40 mg tablet (Lasix) 20 mg PO DAILY 01/10/24 01/10/24 Allergies Allergy/AdvReac Type Severity Reaction Status Date / Time codeine Allergy Unknown Verified 01/10/24 18:27 Review of Systems Review of Systems: All systems reviewed & are unremarkable except as noted in HPI and below PMFSH Past Medical History Medical History Combined systolic and diastolic congestive heart failure echocardiogram 12/06/2021: Severely reduced right ventricular systolic function with EF of 20-25%, moderate left ventricular chamber enlargement, moderate left atrial enlargement, grade 2 diastolic dysfunction Dementia Diabetes GERD (gastroesophageal reflux disease) HTN (hypertension) Hyperlipidemia Peripheral vascular disease Psychiatric disorder Thyroid cancer Surgical History Surgical History History of lumpectomy of left breast History of right breast implant Patient reports that it was radiation implant History of thyroid surgery S/P AKA (above knee amputation) bilateral Family History Family History Mother Family history of type 2 diabetes mellitus, Onset Age: 55 Father Acute myocardial infarction, Onset Age: 58 Social History Social History Social History: The patient has advanced directive paperwork from the halfway that states she is a DNR. However the patient's family members that were in the ER stated that they wanted the patient to be a full code. The patient herself wishes to be a DNR/DNI. Patient is mildly confused but is seemed to be having capacity and understands consequences. Smoking status: Unknown if ever smoked Second hand tobacco smoke exposure: No Alcohol intake: never Substance use: never Lack of Transportation: No Lack of Food: Never True Current Housing: I Have Housing Concerned About Future Housing: No Difficulty Paying Gas/Electric Bills: No Difficulty Paying for Meds: No Currently Unemployed: No Education: High School Diploma/GED Difficulty w/ Childcare or Family Care: No Spiritual care concerns: No Exam Narrative: APPEARANCE: Well appearing, no pain, no distress, well-nourished. HEAD: normocephalic, atraumatic. EYES: PERRLA/EOMI, conjunctivae clear. NOSE: Normal no drainage EARS:TMS clear with good light reflex. THROAT: Pharynx clear, no exudate. NECK: Supple. No adenopathy, no masses. RESPIRATORY: Airway patent, respirations nonlabored. Clear to auscultation bilaterally, no rales, rhonchi, wheezing. CARDIOVASCULAR: Regular rate and rhythm without murmurs rubs or gallops. ABDOMINAL: Soft, nontender, nondistended, normal bowel sounds MUSCULOSKELETAL: Bilateral AKA NEURO: Alert. Cranial nerves II through XII intact. Good gait. Good coordination SKIN: Warm, dry. Normal Color Course Vital Signs Vital signs: Vital Signs Temperature 97.6 F 01/10/24 12:40 Pulse Rate 75 01/10/24 12:40 Respiratory Rate 12 01/10/24 12:40 Blood Pressure 141/57 H 01/10/24 12:40 Pulse Oximetry 100 01/10/24 12:40 Oxygen Delivery Room Air 01/10/24 12:40 Temperature 97.6 F 01/10/24 12:40 Pulse Rate 77 01/10/24 17:59 Respiratory Rate 23 H 01/10/24 17:59 Blood Pressure 123/96 H 01/10/24 17:59 Pulse Oximetry 99 01/10/24 17:59 Oxygen Delivery Room Air 01/10/24 12:40 Medical Decision Making MDM Narrative Medical decision making narrative: 68-year-old female presents to the emergency department for evaluation suspected slurred speech. Patient denies any current slurred speech. Patient had no focal abnormality on her CT scan. Patient does not suspect that she had a stroke and patient has no prior history of strep. Patient is afebrile with no leukocytosis and a stable hemoglobin of 10.7. Patient has normal INR no acute abnormalities on her CMP UA was significant for urinary tract infection. Patient was started on Rocephin in the emergency department. Urine cultures are pending. Discussed the case with hospitalist patient was accepted for admission. Patient was well-appearing at time of admission. CTA was negative for acute intracranial abnormality. Differential Diagnosis Differential Diagnosis: CVA, TIA, UTI, altered mental status, dehydration Vital Signs Vital Signs: Vital Signs Temperature 97.6 F 01/10/24 12:40 Pulse Rate 75 01/10/24 12:40 Respiratory Rate 12 01/10/24 12:40 Blood Pressure 141/57 H 01/10/24 12:40 Pulse Oximetry 100 01/10/24 12:40 Oxygen Delivery Room Air 01/10/24 12:40 Temperature 97.6 F 01/10/24 12:40 Pulse Rate 77 01/10/24 17:59 Respiratory Rate 23 H 01/10/24 17:59 Blood Pressure 123/96 H 01/10/24 17:59 Pulse Oximetry 99 01/10/24 17:59 Oxygen Delivery Room Air 01/10/24 12:40 Lab Data Lab results reviewed: Yes I reviewed the patient's lab results. 01/10/24 14:31 01/10/24 14:31 Labs: Lab Results 01/10/24 01/10/24 Range/Units 14:31 14:52 WBC 4.5 (4.5-10.0) K/mm3 RBC 3.45 L (4.2-5.4) M/mm3 Hgb 10.7 L (12.0-15.0) g/dL Hct 33.8 L (37.0-47.0) % MCV 98.0 (80-100) fl MCH 31.0 (26-34) pg MCHC 31.7 L (32-36) g/dl RDW 20.6 H (11.5-14.5) % Plt Count 205 (150-375) k/mm3 MPV 9.6 (7.4-10.4) fl Immature Gran % (Auto) 0.2 (0-0.5) % Neut % (Auto) 62.5 (45.5-73.1) % Lymph % (Auto) 23.6 (18.3-44.2) % [place] % (Auto) 11.7 H (2.6-8.5) % Eos % (Auto) 0.9 (0-4.4) % Baso % (Auto) 1.1 (0.2-1.2) % Lymph # (Auto) 1.07 (0.9-3.2) K/mm3 [place] # (Auto) 0.5 (0.1-0.6) K/mm3 Eos # (Auto) 0.0 (0-0.3) K/mm3 Baso # (Auto) 0.1 (0.0-0.1) K/mm3 Abs Immat Gran (auto) 0.01 (0.00-0.031) K/mm3 Absolute Neuts (auto) 2.8 (1.3-6.7) K/mm3 Absolute Nucleated RBC 0.000 (0.0-0.012) K/mm3 Nucleated RBC % 0.0 (0.0-0.2) % PT 18.1 H (11.1-14.7) Seconds INR 1.5 APTT 29.1 (22.3-36.8) Seconds Sodium 137 (137-145) mmol/L Potassium 4.7 (3.4-5.0) mmol/L Chloride 104 (98-107) mmol/L Carbon Dioxide 26 (22-30) mmol/L Anion Gap 7 (4-12) mmol/L BUN 29 H (7-17) mg/dL Creatinine 1.10 H (0.7-1.0) mg/dL Estim Creat Clear Calc Not Reportable Estimated GFR 60 (59 - ) Glucose 122 H (65-110) mg/dL Calcium 8.7 (8.4-10.2) mg/dL Total Bilirubin 0.9 (0.2-1.3) mg/dL AST 25 (14-36) U/L ALT 13 (6-35) U/L Alkaline Phosphatase 38 (38-126) U/L Total Protein 8.0 (6.3-8.2) g/dL Albumin 3.4 L (3.5-5.1) g/dL Urine Color Dark yellow (Yellow) Urine Appearance Turbid H (Clear) Urine pH 5.5 (5.0-9.0) Ur Specific [place] 1.011 (1.001-1.035) Urine Protein 2+ H (Negative) mg/dL Urine Glucose (UA) Trace H (Negative) mg/dL Urine Ketones Negative (Negative) mg/dL Ur Blood (Man) 3+ H (Negative) Urine Nitrate Negative (Negative) Urine Bilirubin Negative (Negative) Urine Urobilinogen 1.0 (<2.0) mg/dL Add Ur Microanalysis Reviewed Leukocyte Esterase Rfl 3+ H (Negative) PABLO/UL Urine RBC >100 H (0-2) /hpf Urine WBC >100 H (0-3) /hpf Ur Squamous Epith Cells Many H (Few) /hpf Urine Bacteria 2+ H /hpf Urine Casts 6-10 Imaging Data Radiologist's impression: Impressions Head/Neck CTA 01/10/24 15:31 IMPRESSION: 1. Normal aging brain. 2. 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 3. 0% stenosis of the proximal internal carotid arteries relative to normal distal artery lumen diameters (NASCET criteria). Discharge Plan Discharge Clinical Impression: Acute UTI, AMS (altered mental status) Patient Disposition: Still a Patient Condition: Serious
[2024-01-10 14:36] LABS: Basophils Absolute Auto 0.1 K/mm3 (0.0-0.1); Basophils Percent Auto 1.1 % (0.2-1.2); Eosinophils Percent Auto 0.9 % (0-4.4); Hematocrit 33.8 % (37.0-47.0); Hemoglobin 10.7 g/dL (12.0-15.0); Immature Granulocyte Absolute 0.01 K/mm3 (0.00-0.031); Immature Granulocyte Percent A 0.2 % (0-0.5); Lymphocytes Absolute Auto 1.07 K/mm3 (0.9-3.2); Lymphocytes Percent Auto 23.6 % (18.3-44.2); Mean Corpuscular HGB Conc 31.7 g/dl (32-36); Mean Platelet Volume 9.6 fl (7.4-10.4); Monocytes Absolute Auto 0.5 K/mm3 (0.1-0.6); Monocytes Percent Auto 11.7 % (2.6-8.5); Neutrophils Absolute Auto 2.8 K/mm3 (1.3-6.7); Neutrophils Percent Auto 62.5 % (45.5-73.1); Platelet Count Result 205 k/mm3 (150-375); Red Blood Count 3.45 M/mm3 (4.2-5.4); Red Cell Distribution Width 20.6 % (11.5-14.5); White Blood Count 4.5 K/mm3 (4.5-10.0)
[2024-01-10 14:45] LABS: Alanine Aminotransferase 13 U/L (6-35); Albumin Level 3.4 g/dL (3.5-5.1); Alkaline Phosphatase 38 U/L (38-126); Anion Gap 7 mmol/L (4-12); Aspartate Amino Transferase 25 U/L (14-36); Bilirubin,Total 0.9 mg/dL (0.2-1.3); Blood Urea Nitrogen 29 mg/dL (7-17); Calcium 8.7 mg/dL (8.4-10.2); Carbon Dioxide 26 mmol/L (22-30); Chloride 104 mmol/L (98-107); Estimated Glomerular Filt Rate 60; Glucose 122 mg/dL (65-110); Potassium 4.7 mmol/L (3.4-5.0); Sodium 137 mmol/L (137-145)
[2024-01-10 14:46] LABS: INR 1.5; Prothrombin Time 18.1 Seconds (11.1-14.7)
[2024-01-10 14:47] LABS: Partial Thromboplastin Time 29.1 Seconds (22.3-36.8)
[2024-01-10 15:12] LABS: Add Urine Microscopic? YES; Appearance Urine Turbid (Clear); Bacteria Urine 2+ /hpf; Bilirubin Urine Negative (Negative); Blood Urine 3+ (Negative); Color Urine Dark Yellow (Yellow); Glucose Urine UA Trace mg/dL (Negative); Ketones Urine Negative (Negative); Leukocyte Esterase Ur 3+ LEU/UL (Negative); Need Manual Microscopic Reviewed; Nitrate Urine Negative (Negative); Protein Urine 2+ mg/dL (Negative); RBC Urine >100 /hpf (0-2); Specific Grav Ur 1.011 (1.001-1.035); Squamous Epithelial Cell Urine Many /hpf (Few); WBC Urine >100 /hpf (0-3); pH Urine 5.5 (5.0-9.0)
--- NOTE | 2024-01-10 16:38 | P.HP_ITS ---
H&P: HPI History of Present Illness Date/Time: 01/10/24 16:38 Chief Complaint: Slurred Speech Narrative: 68 y/o F presents here with slurred speech with PMH of diabetes, bilateral AKAs, dementia, GERD, HTN, HLD, PVD, CHF, and thyroid cancer s/p surgery. The patient presents here via EMS from [facility] for further evaluation of slurred speech, right-sided weakness, and increased confusion. HPI obtained thro [facility] patient report and chart review. Per EMS report, the fpc reported onset approximately 12 hours ago. The patient is currently denying dysarthria, dysphagia, focal weakness, focal numbness, headache, or dizziness. No other complaints at this time except that she would like to sleep. She is currently A&Ox1 and poor historian. Initial VS at presentation: 97.6? F, HR 75, RR 12, 141/57, and 100% on RA. ED workup showed: No leukocytosis, hemoglobin 10.7 (previously 8.3 in 2022), INR 1.5, creatinine 1.1 and GFR 60 (previously 0.7 and GFR >60 in 2022), glucose 122, and UA consistent with UTI. Head and neck CTA showed normal aging brain, moderate stenosis of the distal left vertebral artery, and 0% stenosis of the proximal ICAs. Review of Systems Review of Systems: ROS unobtainable: Yes unobtainable due to mental status (Limited, A&O x1) [facility] Past Medical History Medical History Combined systolic and diastolic congestive heart failure echocardiogram 12/06/2021: Severely reduced right ventricular systolic function with EF of 20-25%, moderate left ventricular chamber enlargement, moderate left atrial enlargement, grade 2 diastolic dysfunction Dementia Diabetes GERD (gastroesophageal reflux disease) HTN (hypertension) Hyperlipidemia Peripheral vascular disease Psychiatric disorder Thyroid cancer Surgical History Surgical History History of lumpectomy of left breast History of right breast implant Patient reports that it was radiation implant History of thyroid surgery S/P AKA (above knee amputation) bilateral Family History Family History Mother Family history of type 2 diabetes mellitus, Onset Age: 55 Father Acute myocardial infarction, Onset Age: 58 Social History Social History Social History: The patient has advanced directive paperwork from the fpc that states she is a DNR. However the patient's family members that were in the ER stated that they wanted the patient to be a full code. The patient herself wishes to be a DNR/DNI. Patient is mildly confused but is seemed to be having capacity and understands consequences. Smoking status: Unknown if ever smoked Second hand tobacco smoke exposure: No Alcohol intake: never Substance use: never Lack of Transportation: No Lack of Food: Never True Current Housing: I Have Housing Concerned About Future Housing: No Difficulty Paying Gas/Electric Bills: No Difficulty Paying for Meds: No Currently Unemployed: No Education: High School Diploma/GED Difficulty w/ Childcare or Family Care: No Spiritual care concerns: No Meds Home Medications and Allergies Home Medications Medication Instructions Recorded Confirmed Type acetaminophen 325 mg capsule 650 mg PO Q6H PRN Pain (Scale 12/05/21 01/10/24 History (Tylenol) Score 1-3) atorvastatin 40 mg tablet 40 mg PO DAILY 12/05/21 01/10/24 History bisacodyl 10 mg rectal suppository 10 mg RECTAL PRN PRN Constipation 12/05/21 01/10/24 History insulin aspart U-100 100 unit/mL See Rx Instructions .Route .COMPLEX 12/05/21 01/10/24 History subcutaneous solution (Novolog U-100 Insulin aspart) levothyroxine 100 mcg tablet 100 mcg PO DAILY 12/05/21 01/10/24 History ondansetron HCl 4 mg tablet 4 mg PO Q8H PRN Nausea 12/05/21 01/10/24 History carvedilol 6.25 mg tablet (Coreg) 6.25 mg PO BID 1 month #60 tabs 12/08/21 1 Rx empagliflozin 10 mg tablet 10 mg PO DAILY 1 month #30 tabs 12/08/21 01/10/24 Rx (Jardiance) sacubitril 24 mg-valsartan 26 mg 1 tablet PO Q12HR 1 month #60 tabs 12/08/21 01/10/24 Rx tablet (Entresto) gabapentin 300 mg capsule 300 mg PO TID 05/16/22 01/10/24 History omeprazole 20 mg capsule,delayed 20 mg PO DAILY 05/16/22 01/10/24 History release potassium chloride 10 mEq 10 meq PO DAILY 05/16/22 01/10/24 History capsule,extended release Lantus U-100 Insulin 8 unit subcut QHS 01/10/24 01/10/24 History furosemide 40 mg tablet (Lasix) 20 mg PO DAILY 01/10/24 01/10/24 History Allergies Allergy/AdvReac Type Severity Reaction Status Date / Time codeine Allergy Unknown Verified 01/10/24 18:27 Vital Signs Vital Signs - 24 hr 01/10/24 12:40 01/10/24 16:13 Temperature 97.6 F Pulse Rate 75 75 Respiratory Rate 12 18 Blood Pressure 141/57 H 123/77 Pulse Oximetry 100 98 Oxygen Delivery Room Air Exam Const: General: comfortable and no acute distress Other: , female, nontoxic appearance HENMT: Face/Nose/Sinus: Normal nares present Mouth: Yes moist mucous membranes Other: Poor general condition Eyes: General: appearance normal, both eyes and all related structures Sclera: sclerae normal Pupils: Equal, round and reactive pupils present EOM: EOMs intact bilaterally Resp: Effort & Inspection: normal respiratory effort Auscultation: clear to auscultation bilaterally Cardio: Rate: regular rate Rhythm: regular rhythm Other: Occasional ectopy, +murmur GI: Other: Abdomen soft, nondistended, nontender. Skin: General skin exam: normal color and no rashes or lesions noted Wounds: no wounds Neuro: Speech: normal speech Sensory Exam: normal sensation Other: +generalized weakness, A/Ox1. Extrem: Other: AKA bilaterally Psych: Mental Status: mental status grossly normal Affect: normal affect Other: Poor insight and judgment H&P: Results Labs Labs: Short CBC 01/10/24 Range/Units 14:31 WBC 4.5 (4.5-10.0) K/mm3 Hgb 10.7 L (12.0-15.0) g/dL Hct 33.8 L (37.0-47.0) % Plt Count 205 (150-375) k/mm3 BMP 01/10/24 14:31 Sodium 137 Potassium 4.7 Chloride 104 Carbon Dioxide 26 BUN 29 H Creatinine 1.10 H Glucose 122 H Calcium 8.7 Liver Function 01/10/24 Range/Units 14:31 Total Bilirubin 0.9 (0.2-1.3) mg/dL AST 25 (14-36) U/L ALT 13 (6-35) U/L Alkaline Phosphatase 38 (38-126) U/L Albumin 3.4 L (3.5-5.1) g/dL Urine 01/10/24 Range/Units 14:52 Urine Color Dark yellow (Yellow) Urine Appearance Turbid H (Clear) Urine pH 5.5 (5.0-9.0) Ur Specific [place] 1.011 (1.001-1.035) Urine Protein 2+ H (Negative) mg/dL Urine Glucose (UA) Trace H (Negative) mg/dL Assessment and Plan Assessment and plan (1) Acute UTI: Code(s): N39.0 - Urinary tract infection, site not specified Status: Acute Assessment and Plan: - did not meet SIRS criteria - UA: Turbid, 2+ protein, trace glucose, 3+ blood, 3+ leuks, greater than 100 RBC and WBC, many epithelial cells, and 2+ bacteria - UC pending - previous micro reviewed, no previously positive UC on file - started on Ceftriaxone on 01/09 - slight increase in creatinine 0.7 -> 1.1, GFR 60. Will give 100 mL/hour x1 L. Recheck in a.m. (2) Slurred speech: Code(s): R47.81 - Slurred speech Status: Resolved Assessment and Plan: -head/neck CTA: 1. Normal aging brain. 2. 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 3. 0% stenosis of the proximal internal carotid arteries relative to normal distal artery lumen diameters (NASCET criteria). 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 Hold home sliding scale. - correct regimen ordered - low dose TIDWM - A1C ordered (4) HTN (hypertension): Qualifiers: Hypertension type: unspecified Qualified Code(s): I10 - Essential (primary) hypertension Code(s): I10 - Essential (primary) hypertension Status: Chronic Assessment and Plan: - chronic, currently 148/41 - continue home medications: Coreg 6.25 mg b.i.d., Lasix 20 mg daily, Entresto 24-26 b.i.d. - monitor Plan Diet: Diabetic GI Prophylaxis: Not currently indicated DVT Prophylaxis: SCDs Lines: Peripheral Code Status: DNR Quality VTE Prophylaxis VTE prophylaxis: mechanical ordered Hospitalist MIPS Advance Care Plan I have confirmed that the patient's Advanced Care Plan is present, code status is documented, or surrogate decision maker is listed in patient medical record.: Yes Medication Reconciliation I have utilized all available resources to obtain, update and review the patients current medications (includes all prescriptions, OTC, herbals, cannabis, and nutritional supplements).: Yes
[2024-01-10 17:55] LABS: Glucose Point of Care 105 mg/dl (65-105)
[2024-01-10] MEDS: SODIUM CHLORIDE 0.9% IV 1,000 ML 100 ML IV CONT (18:02)
--- NOTE | 2024-01-10 18:27 | ADMGEN ---
This patient, Iris Pascual, was admitted to [facility] Surg Room 305-01. Patient/family oriented to hospital policies and general routines including ID bracelet, bed and alarms, visiting hours, pain management, procedures, bathroom and other care routines, personal items, smoking policy, room service/diet, and visiting hours. Information on how to activate the Rapid Response Team has been discussed. Patient/Family are encouraged to report perceived risks to care and to ask questions if they do not understand what they are told or what they should do.
[2024-01-10] MEDS: SACUBITRIL/VALSARTAN 24-26 MG TABLET 1 TAB PO (22:09)
[2024-01-10] MEDS: INSULIN GLARGINE (*BKC) 100 UNITS/ML 8 UNITS SUB-Q (22:09)
[2024-01-10] MEDS: carvediloL 6.25 MG TABLET PO (22:09)
[2024-01-10 22:20] LABS: Glucose Point of Care 87 mg/dl (65-105)
[2024-01-11] VITALS (8 sets, daily range): BP systolic 140–154; BP diastolic 38–72; PULSE 57–62; RESP 12–14; TEMP 35.9–36.4; O2SAT 97–100
[2024-01-11] MEDS: LEVOTHYROXINE SODIUM 100 MCG TABLET PO (06:19)
[2024-01-11 07:51] LABS: Basophils Absolute Auto 0.1 K/mm3 (0.0-0.1); Basophils Percent Auto 1.2 % (0.2-1.2); Eosinophils Absolute Auto 0.1 K/mm3 (0-0.3); Eosinophils Percent Auto 2.3 % (0-4.4); Hematocrit 34.4 % (37.0-47.0); Hemoglobin 10.5 g/dL (12.0-15.0); Immature Granulocyte Absolute 0.01 K/mm3 (0.00-0.031); Immature Granulocyte Percent A 0.2 % (0-0.5); Lymphocytes Absolute Auto 1.19 K/mm3 (0.9-3.2); Lymphocytes Percent Auto 27.9 % (18.3-44.2); Mean Corpuscular HGB Conc 30.5 g/dl (32-36); Mean Corpuscular Hemoglobin 30.6 pg (26-34); Mean Corpuscular Volume 100.3 fl (80-100); Mean Platelet Volume 10.2 fl (7.4-10.4); Monocytes Absolute Auto 0.6 K/mm3 (0.1-0.6); Monocytes Percent Auto 13.4 % (2.6-8.5); Neutrophils Absolute Auto 2.3 K/mm3 (1.3-6.7); Platelet Count Result 195 k/mm3 (150-375); Red Blood Count 3.43 M/mm3 (4.2-5.4); Red Cell Distribution Width 20.7 % (11.5-14.5); White Blood Count 4.3 K/mm3 (4.5-10.0)
[2024-01-11 07:58] LABS: Hemoglobin A1C 7.5 % (<5.7)
[2024-01-11 08:09] LABS: Anion Gap 10 mmol/L (4-12); Blood Urea Nitrogen 28 mg/dL (7-17); Calcium 8.4 mg/dL (8.4-10.2); Carbon Dioxide 25 mmol/L (22-30); Chloride 104 mmol/L (98-107); Estimated CRCL calculation 45 ml/min; Estimated Glomerular Filt Rate > 60; Glucose 71 mg/dL (65-110); Potassium 4.2 mmol/L (3.4-5.0); Sodium 139 mmol/L (137-145)
[2024-01-11 08:28] LABS: Glucose Point of Care 69 mg/dl (65-105)
[2024-01-11] MEDS: carvediloL 6.25 MG TABLET PO ×2 (08:53→20:53)
[2024-01-11] MEDS: GABAPENTIN 300 MG CAPSULE PO ×3 (08:53→16:37)
[2024-01-11] MEDS: SACUBITRIL/VALSARTAN 24-26 MG TABLET 1 TAB PO ×2 (08:53→20:53)
[2024-01-11] MEDS: POTASSIUM CHLORIDE 10 MEQ ER TABLET PO (08:53)
[2024-01-11] MEDS: ATORVASTATIN 40 MG TABLET PO (08:53)
[2024-01-11] MEDS: FUROSEMIDE 20 MG TABLET PO (08:53)
[2024-01-11] MEDS: PANTOPRAZOLE 40 MG TABLET PO (08:54)
[2024-01-11 10:19] LABS: Glucose Point of Care 127 mg/dl (65-105)
[2024-01-11 11:49] LABS: Glucose Point of Care 109 mg/dl (65-105)
--- NOTE | 2024-01-11 15:10 | PM.IMPN ---
Progress Note: A&P Assessment and Plan (1) Acute UTI: Code(s): N39.0 - Urinary tract infection, site not specified Status: Acute Assessment and Plan: - did not meet SIRS criteria - UA: Turbid, 2+ protein, trace glucose, 3+ blood, 3+ leuks, greater than 100 RBC and WBC, many epithelial cells, and 2+ bacteria - UC pending - previous micro reviewed, no previously positive UC on file - started on Ceftriaxone on 01/09 - slight increase in creatinine 0.7 -> 1.1, GFR 60. Continue fluids and monitor intake (2) Slurred speech: Code(s): R47.81 - Slurred speech Status: Resolved Assessment and Plan: -head/neck CTA: 1. Normal aging brain. 2. 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 3. 0% stenosis of the proximal internal carotid arteries relative to normal distal artery lumen diameters (NASCET criteria). - no subjective or objective slurred speech on exam - suspect transient alteration/slurred speech secondary to UTI, started on antibiotics. 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 Hold home sliding scale. - correct regimen ordered - low dose TIDWM - A1C ordered (4) HTN (hypertension): Qualifiers: Hypertension type: unspecified Qualified Code(s): I10 - Essential (primary) hypertension Code(s): I10 - Essential (primary) hypertension Status: Chronic Assessment and Plan: - chronic, currently 148/41 - continue home medications: Coreg 6.25 mg b.i.d., Lasix 20 mg daily, Entresto 24-26 b.i.d. - monitor Plan Diet: Diabetic GI Prophylaxis: Not currently indicated DVT Prophylaxis: SCDs Lines: Peripheral Code Status: DNR Subjective Date/time seen: 01/11/24 15:10 Interval history: Sleepy this morning. More awake this afternoon. Minimally participatory with conversation but said she was having urinary symptoms when she urinates at the end Cultures pending Review of Systems Review of Systems: All systems reviewed & are unremarkable except as noted in HPI and below ROS unobtainable: Yes unobtainable due to mental status (Limited, A&O x1) Exam Narrative: General - Awake and alert. No acute distress Eyes - PERRLA, EOM intact ENT - No thrush, No erythema Neck - No noticeable or palpable swelling Lymph Nodes - No lymphadenopathy Cardiovascular - RRR +murmur, no JVD Lungs: Clear to auscultation, No wheezing, use of accessory muscles, no crackles Skin - Skin warm and dry, no wounds or rashes Abdomen - Normal bowel sounds, abdomen soft and nontender Extremities - No edema, cyanosis or clubbing Musculoskeletal - Left sided weakness, strength 2/5 left, 3/5 right Neurological ? Alert and oriented x 1, PERRLA, EOMI, Psych: Normal mood and affect Const: General: comfortable HENMT: Face/Nose/Sinus: Normal nares present Eyes: General: appearance normal, both eyes and all related structures Resp: Effort & Inspection: normal respiratory effort Cardio: Rate: regular rate Neuro: Cranial nerves: Yes Equal, round and reactive pupils present Psych: Mental Status: mental status grossly normal Objective Data Vital Signs Vital Signs: Vital Signs - 24 hr 01/10/24 16:13 01/10/24 17:59 01/10/24 16:00 Temperature Pulse Rate 75 77 Respiratory Rate 18 23 H 22 H Blood Pressure 123/77 123/96 H Pulse Oximetry 98 99 Oxygen Delivery 01/10/24 21:45 01/10/24 22:09 01/10/24 20:00 Temperature 98.3 F Pulse Rate 76 76 76 Respiratory Rate 14 14 Blood Pressure 148/41 H Pulse Oximetry 98 98 Oxygen Delivery Room Air 01/11/24 06:00 01/11/24 08:53 01/11/24 08:54 Temperature 97.6 F Pulse Rate 60 60 Respiratory Rate 12 14 Blood Pressure 140/63 Pulse Oximetry 97 97 Oxygen Delivery Room Air 01/11/24 12:25 01/11/24 13:54 Temperature 97.0 F L 96.6 F L Pulse Rate 57 L 60 Respiratory Rate 14 14 Blood Pressure 154/38 H 150/72 H Pulse Oximetry 100 100 Oxygen Delivery Intake/Output Intake/Output: Intake & Output 01/08/24 01/09/24 01/10/24 01/11/24 23:59 23:59 23:59 23:59 Intake Total 50 1286 Balance 50 1286 Meds/Results Medications: Active Medications Generic Name Dose Route Start Last Admin Trade Name Freq PRN Reason Stop Dose Admin Acetaminophen 650 mg 01/10/24 16:52 Acetaminophen 325 Mg Tablet PO Q6H PRN Mild Pain (1-3) or Fever Atorvastatin Calcium 40 mg 01/11/24 09:00 01/11/24 08:53 Atorvastatin 40 Mg Tablet PO 40 mg DAILY KASIE Administration Bisacodyl 10 mg 01/10/24 21:51 Bisacodyl 10 Mg Suppository RECTAL PRN PRN Constipation Carvedilol 6.25 mg 01/10/24 22:00 01/11/24 08:53 Carvedilol 6.25 Mg Tablet PO 6.25 mg Q12HR KASIE Administration Dextrose 12.5 gm 01/10/24 16:49 Dextrose 50% 25 Gm/50 Ml Syringe IV PUSH PRN PRN Hypoglycemia Protocol Empagliflozin 10 mg 01/11/24 09:00 01/11/24 08:54 Empagliflozin 10 Mg Tablet PO Not Given DAILY KASIE Furosemide 20 mg 01/11/24 09:00 01/11/24 08:53 Furosemide 20 Mg Tablet PO 20 mg DAILY KASIE Administration Gabapentin 300 mg 01/11/24 09:00 01/11/24 12:08 Gabapentin 300 Mg Capsule PO 300 mg TID KASIE Administration Glucagon 1 mg 01/10/24 16:49 Glucagon For Inj 1 Mg Vial IM PRN PRN Hypoglycemia Protocol Glucose 15 gm 01/10/24 16:49 Glucose Oral Gel 15 Gm Of Glucse In 37.5 Gm Tube PO PRN PRN Hypoglycemia Protocol Ceftriaxone Sodium 1 gm in 50 mls @ 100 mls/hr 01/11/24 16:00 Rocephin 1 Gm/Ns 50 Ml IVPB Q24H KASIE Dextrose 1,000 mls @ 100 mls/hr 01/10/24 16:49 Dextrose 5% 1,000 Ml IVPB PRN PRN Hypoglycemia Protocol Insulin Aspart 2 - 5 units 01/10/24 17:00 01/11/24 11:54 Insulin Aspart (*Bkc) 100 Units/Ml SUB-Q Not Given TIDWM [facility] Protocol Insulin Glargine 8 units 01/10/24 22:00 01/10/24 22:09 Insulin Glargine (*Bkc) 100 Units/Ml SUB-Q 8 units QHS KASIE Administration Levothyroxine Sodium 100 mcg 01/11/24 06:30 01/11/24 06:19 Levothyroxine Sodium 100 Mcg Tablet PO 100 mcg DAILY@0630 KASIE Administration Ondansetron HCl 4 mg 01/10/24 21:51 Ondansetron Hcl Odt 4 Mg Tablet PO Q8H PRN Nausea Pantoprazole Sodium 40 mg 01/11/24 09:00 01/11/24 08:54 Pantoprazole 40 Mg Tablet PO 40 mg QAM KASIE Administration Potassium Chloride 10 meq 01/11/24 08:00 01/11/24 08:53 Potassium Chloride 10 Meq Er Tablet PO 10 meq DAILY@0800 [facility] Administration Sacubitril/Valsartan 1 tab 01/10/24 22:05 01/11/24 08:53 Sacubitril/Valsartan 24-26 Mg Tablet PO 1 tab Q12HR KASIE Administration Radiology Results: ITS Impressions Head/Neck CTA 01/10/24 15:31 IMPRESSION: 1. Normal aging brain. 2. 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 3. 0% stenosis of the proximal internal carotid arteries relative to normal distal artery lumen diameters (NASCET criteria). Labs Labs: Laboratory Results - last 24 hr 01/10/24 01/10/24 01/10/24 14:52 17:52 22:12 WBC RBC Hgb Hct MCV MCH MCHC RDW Plt Count MPV Immature Gran % (Auto) Neut % (Auto) Lymph % (Auto) [place] % (Auto) Eos % (Auto) Baso % (Auto) Lymph # (Auto) [place] # (Auto) Eos # (Auto) Baso # (Auto) Abs Immat Gran (auto) Absolute Neuts (auto) Absolute Nucleated RBC Nucleated RBC % Sodium Potassium Chloride Carbon Dioxide Anion Gap BUN Creatinine Estim Creat Clear Calc Estimated GFR Glucose POC Capillary Glucose 105 87 Hemoglobin A1c Calcium Urine Color Dark yellow Urine Appearance Turbid H Urine pH 5.5 Ur Specific [place] 1.011 Urine Protein 2+ H Urine Glucose (UA) Trace H Urine Ketones Negative Ur Blood (Man) 3+ H Urine Nitrate Negative Urine Bilirubin Negative Urine Urobilinogen 1.0 Add Ur Microanalysis Reviewed Leukocyte Esterase Rfl 3+ H Urine RBC >100 H Urine WBC >100 H Ur Squamous Epith Cells Many H Urine Bacteria 2+ H Urine Casts 6-10 01/11/24 01/11/24 01/11/24 07:01 08:19 10:15 WBC 4.3 L RBC 3.43 L Hgb 10.5 L Hct 34.4 L MCV 100.3 H MCH 30.6 MCHC 30.5 L RDW 20.7 H Plt Count 195 MPV 10.2 Immature Gran % (Auto) 0.2 Neut % (Auto) 55.0 Lymph % (Auto) 27.9 [place] % (Auto) 13.4 H Eos % (Auto) 2.3 Baso % (Auto) 1.2 Lymph # (Auto) 1.19 [place] # (Auto) 0.6 Eos # (Auto) 0.1 Baso # (Auto) 0.1 Abs Immat Gran (auto) 0.01 Absolute Neuts (auto) 2.3 Absolute Nucleated RBC 0.000 Nucleated RBC % 0.0 Sodium 139 Potassium 4.2 Chloride 104 Carbon Dioxide 25 Anion Gap 10 BUN 28 H Creatinine 1.00 Estim Creat Clear Calc 45 Estimated GFR > 60 Glucose 71 POC Capillary Glucose 69 127 H Hemoglobin A1c 7.5 H Calcium 8.4 Urine Color Urine Appearance Urine pH Ur Specific [place] Urine Protein Urine Glucose (UA) Urine Ketones Ur Blood (Man) Urine Nitrate Urine Bilirubin Urine Urobilinogen Add Ur Microanalysis Leukocyte Esterase Rfl Urine RBC Urine WBC Ur Squamous Epith Cells Urine Bacteria Urine Casts 01/11/24 11:42 WBC RBC Hgb Hct MCV MCH MCHC RDW Plt Count MPV Immature Gran % (Auto) Neut % (Auto) Lymph % (Auto) [place] % (Auto) Eos % (Auto) Baso % (Auto) Lymph # (Auto) [place] # (Auto) Eos # (Auto) Baso # (Auto) Abs Immat Gran (auto) Absolute Neuts (auto) Absolute Nucleated RBC Nucleated RBC % Sodium Potassium Chloride Carbon Dioxide Anion Gap BUN Creatinine Estim Creat Clear Calc Estimated GFR Glucose POC Capillary Glucose 109 H Hemoglobin A1c Calcium Urine Color Urine Appearance Urine pH Ur Specific [place] Urine Protein Urine Glucose (UA) Urine Ketones Ur Blood (Man) Urine Nitrate Urine Bilirubin Urine Urobilinogen Add Ur Microanalysis Leukocyte Esterase Rfl Urine RBC Urine WBC Ur Squamous Epith Cells Urine Bacteria Urine Casts Quality VTE Prophylaxis VTE prophylaxis: mechanical ordered Hospitalist MIPS Advance Care Plan I have confirmed that the patient's Advanced Care Plan is present, code status is documented, or surrogate decision maker is listed in patient medical record.: Yes Medication Reconciliation I have utilized all available resources to obtain, update and review the patients current medications (includes all prescriptions, OTC, herbals, cannabis, and nutritional supplements).: Yes
[2024-01-11 16:50] LABS: Glucose Point of Care 76 mg/dl (65-105)
[2024-01-11 19:43] LABS: Glucose Point of Care 114 mg/dl (65-105)
[2024-01-11] MEDS: INSULIN GLARGINE (*BKC) 100 UNITS/ML 8 UNITS SUB-Q (20:54)
[2024-01-11 23:30] LABS: Glucose Point of Care 146 mg/dl (65-105)
[2024-01-12 05:14] VITALS: BP 115/79; PULSE 70; RESP 14; TEMP 36.4; O2SAT 100
[2024-01-12] MEDS: LEVOTHYROXINE SODIUM 100 MCG TABLET PO (06:06)
[2024-01-12 07:21] LABS: Basophils Absolute Auto 0.1 K/mm3 (0.0-0.1); Basophils Percent Auto 1.1 % (0.2-1.2); Eosinophils Absolute Auto 0.2 K/mm3 (0-0.3); Hematocrit 34.2 % (37.0-47.0); Hemoglobin 10.4 g/dL (12.0-15.0); Immature Granulocyte Absolute 0.02 K/mm3 (0.00-0.031); Immature Granulocyte Percent A 0.4 % (0-0.5); Lymphocytes Absolute Auto 0.87 K/mm3 (0.9-3.2); Lymphocytes Percent Auto 19.2 % (18.3-44.2); Mean Corpuscular HGB Conc 30.4 g/dl (32-36); Mean Corpuscular Hemoglobin 31.1 pg (26-34); Mean Corpuscular Volume 102.4 fl (80-100); Mean Platelet Volume 9.9 fl (7.4-10.4); Monocytes Absolute Auto 0.4 K/mm3 (0.1-0.6); Monocytes Percent Auto 9.5 % (2.6-8.5); Neutrophils Percent Auto 65.8 % (45.5-73.1); Platelet Count Result 198 k/mm3 (150-375); Red Blood Count 3.34 M/mm3 (4.2-5.4); Red Cell Distribution Width 20.1 % (11.5-14.5); White Blood Count 4.5 K/mm3 (4.5-10.0)
[2024-01-12 07:33] LABS: Anion Gap 8 mmol/L (4-12); Blood Urea Nitrogen 21 mg/dL (7-17); Calcium 8.2 mg/dL (8.4-10.2); Carbon Dioxide 27 mmol/L (22-30); Chloride 104 mmol/L (98-107); Estimated CRCL calculation 50 ml/min; Estimated Glomerular Filt Rate > 60; Glucose 70 mg/dL (65-110); Potassium 3.9 mmol/L (3.4-5.0); Sodium 139 mmol/L (137-145)
[2024-01-12] MEDS: POTASSIUM CHLORIDE 10 MEQ ER TABLET PO (07:51)
[2024-01-12 07:52] VITALS: PULSE 70
[2024-01-12] MEDS: carvediloL 6.25 MG TABLET PO ×2 (07:52→20:52)
[2024-01-12] MEDS: ATORVASTATIN 40 MG TABLET PO (07:52)
[2024-01-12] MEDS: FUROSEMIDE 20 MG TABLET PO (07:53)
[2024-01-12] MEDS: SACUBITRIL/VALSARTAN 24-26 MG TABLET 1 TAB PO ×2 (07:53→20:52)
[2024-01-12] MEDS: EMPAGLIFLOZIN 10 MG TABLET PO (07:53)
[2024-01-12] MEDS: GABAPENTIN 300 MG CAPSULE PO ×3 (07:53→17:26)
[2024-01-12] MEDS: PANTOPRAZOLE 40 MG TABLET PO (07:53)
[2024-01-12 08:00] VITALS: PULSE 70
[2024-01-12 08:08] LABS: Glucose Point of Care 58 mg/dl (65-105)
[2024-01-12 08:20] LABS: Glucose Point of Care 74 mg/dl (65-105)
--- NOTE | 2024-01-12 09:59 | PCPTNOTE ---
Pt is dependent (Sharona lift and dependent for ADLs at baseline). Hospitalist contacted and agreed to discharge of therapy orders.
[2024-01-12 11:57] LABS: Glucose Point of Care 110 mg/dl (65-105)
--- NOTE | 2024-01-12 13:24 | P.PNIM_ITS ---
Progress Note: A&P Assessment and Plan (1) Acute UTI: Code(s): N39.0 - Urinary tract infection, site not specified Status: Acute Assessment and Plan: - did not meet SIRS criteria. - UA: Turbid, 2+ protein, trace glucose, 3+ blood, 3+ leuks, greater than 100 RBC and WBC, many epithelial cells, and 2+ bacteria - UC still pending. - Previous micro reviewed, no previously positive UC on file - started on Ceftriaxone on 01/09. - Continue IV fluids hydration and monitor intake. (2) Slurred speech: Code(s): R47.81 - Slurred speech Status: Resolved Assessment and Plan: - Appears resolved. -head/neck CTA: 1. Normal aging brain. 2. 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 3. 0% stenosis of the proximal internal carotid arteries relative to normal distal artery lumen diameters (NASCET criteria). - no subjective or objective slurred speech on exam. (3) Diabetes: Qualifiers: Diabetes mellitus type: type 2 Diabetes mellitus intermediate manager insulin use: with halfway use Diabetes mellitus complication status: with other specified complication Qualified Code(s): E11.69 - Type 2 diabetes mellitus with other specified complication; Z79.4 - intermediate designer (current) use of insulin Code(s): E11.9 - Type 2 diabetes mellitus without complications Status: Chronic Assessment and Plan: - hypoglycemia protocol - POC blood glucose ACHS - home medication: Continue Lantus 8 units HS, Jardiance 10 mg. Hold home sliding scale. - correct regimen ordered - low dose TIDWM - A1C 7.5 on this admission. (4) HTN (hypertension): Qualifiers: Hypertension type: unspecified Qualified Code(s): I10 - Essential (torsten zina) hypertension Code(s): I10 - Essential (primary) hypertension Status: Chronic Assessment and Plan: - chronic, appears well controlled currently. - continue home medications: Coreg 6.25 mg b.i.d., Lasix 20 mg daily, Entresto 24-26 b.i.d. - monitor closely. (5) Dyslipidemia: Code(s): E78.5 - Hyperlipidemia, unspecified Status: Acute Assessment and Plan: - Continue statin. Plan Diet: Diabetic GI Prophylaxis: Not currently indicated DVT Prophylaxis: SCDs Lines: Peripheral Code Status: DNR Time Spent With Patient Time with patient: 25 - 35 minutes Subjective Date/time seen: 01/12/24 11:24 Patient very sleepy on bedrest, falling asleep during conversation. Denies pain or other distress. Interval history: The patient presents here via EMS from [facility] for further evaluation of slurred speech, right-sided weakness, and increased confusion. Her Head/Neck CTA showed normal aging brain, with no significant occlusion noted. Her UA was consisted with a UTI, that was likely the cause of her altered mentation, and she's being treated for the UTI, with the urine cultures still pending. Review of Systems Review of Systems: ROS unobtainable: Yes unobtainable due to mental status (Limited, A&O x1) Exam Narrative: General - Very sleepy but in no acute distress Eyes - PERRLA, EOM intact ENT - No thrush, No erythema Neck - No noticeable or palpable swelling Lymph Nodes - No lymphadenopathy Cardiovascular - RRR +murmur, no JVD Lungs: Clear to auscultation, No wheezing, use of accessory muscles, no crackles Skin - Skin warm and dry, no wounds or rashes Abdomen - Normal bowel sounds, abdomen soft and nontender Extremities - No edema, cyanosis or clubbing. Bilateral AKA. Musculoskeletal - Strength 3/5 bilaterally. Neurological ? Alert and oriented x 1, PERRLA, EOMI, Psych: Very sleepy. Const: General: comfortable and no acute distress Other: female, very sleepy but nontoxic appearance Objective Data Vital Signs Vital Signs: Vital Signs - 24 hr 01/11/24 13:54 01/11/24 20:30 01/11/24 20:53 Temperature 96.6 F L 97.5 F L Pulse Rate 60 62 62 Respiratory Rate 14 14 Blood Pressure 150/72 H 143/68 H Pulse Oximetry 100 100 Oxygen Delivery 01/11/24 20:00 01/12/24 05:14 01/12/24 07:52 Temperature 97.6 F Pulse Rate 62 70 70 Respiratory Rate 14 14 Blood Pressure 115/79 Pulse Oximetry 100 100 Oxygen Delivery Room Air 01/12/24 08:00 Temperature Pulse Rate 70 Respiratory Rate Blood Pressure Pulse Oximetry Oxygen Delivery Room Air Intake/Output Intake/Output: Intake & Output 01/09/24 01/10/24 01/11/24 01/12/24 23:59 23:59 23:59 23:59 Intake Total 50 1336 318 Balance 50 1336 318 Meds/Results Medications: Active Medications Generic Name Dose Route Start Last Admin Trade Name Freq PRN Reason Stop Dose Admin Acetaminophen 650 mg 01/10/24 16:52 Acetaminophen 325 Mg Tablet PO Q6H PRN Mild Pain (1-3) or Fever Atorvastatin Calcium 40 mg 01/11/24 09:00 01/12/24 07:52 Atorvastatin 40 Mg Tablet PO 40 mg DAILY KASIE Administration Bisacodyl 10 mg 01/10/24 21:51 Bisacodyl 10 Mg Suppository RECTAL PRN PRN Constipation Carvedilol 6.25 mg 01/10/24 22:00 01/12/24 07:52 Carvedilol 6.25 Mg Tablet PO 6.25 mg Q12HR KASIE Administration Dextrose 12.5 gm 01/10/24 16:49 Dextrose 50% 25 Gm/50 Ml Syringe IV PUSH PRN PRN Hypoglycemia Protocol Empagliflozin 10 mg 01/11/24 09:00 01/12/24 07:53 Empagliflozin 10 Mg Tablet PO 10 mg DAILY KASIE Administration Furosemide 20 mg 01/11/24 09:00 01/12/24 07:53 Furosemide 20 Mg Tablet PO 20 mg DAILY KASIE Administration Gabapentin 300 mg 01/11/24 09:00 01/12/24 12:21 Gabapentin 300 Mg Capsule PO 300 mg TID KASIE Administration Glucagon 1 mg 01/10/24 16:49 Glucagon For Inj 1 Mg Vial IM PRN PRN Hypoglycemia Protocol Glucose 15 gm 01/10/24 16:49 Glucose Oral Gel 15 Gm Of Glucse In 37.5 Gm Tube PO PRN PRN Hypoglycemia Protocol Ceftriaxone Sodium 1 gm in 50 mls @ 100 mls/hr 01/11/24 16:00 01/11/24 15:45 Rocephin 1 Gm/Ns 50 Ml IVPB Infused Q24H KASIE Infusion Dextrose 1,000 mls @ 100 mls/hr 01/10/24 16:49 Dextrose 5% 1,000 Ml IVPB PRN PRN Hypoglycemia Protocol Insulin Aspart 2 - 5 units 01/10/24 17:00 01/12/24 12:15 Insulin Aspart (*Bkc) 100 Units/Ml SUB-Q Not Given TIDWM KASIE Protocol Insulin Glargine 8 units 01/10/24 22:00 01/11/24 20:54 Insulin Glargine (*Bkc) 100 Units/Ml SUB-Q 8 units QHS KASIE Administration Levothyroxine Sodium 100 mcg 01/11/24 06:30 01/12/24 06:06 Levothyroxine Sodium 100 Mcg Tablet PO 100 mcg DAILY@0630 KASIE Administration Ondansetron HCl 4 mg 01/10/24 21:51 Ondansetron Hcl Odt 4 Mg Tablet PO Q8H PRN Nausea Pantoprazole Sodium 40 mg 01/11/24 09:00 01/12/24 07:53 Pantoprazole 40 Mg Tablet PO 40 mg QAM KASIE Administration Potassium Chloride 10 meq 01/11/24 08:00 01/12/24 07:51 Potassium Chloride 10 Meq Er Tablet PO 10 meq DAILY@0800 KASIE Administration Sacubitril/Valsartan 1 tab 01/10/24 22:05 01/12/24 07:53 Sacubitril/Valsartan 24-26 Mg Tablet PO 1 tab Q12HR KASIE Administration Radiology Results: ITS Impressions Head/Neck CTA 01/10/24 15:31 IMPRESSION: 1. Normal aging brain. 2. 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 3. 0% stenosis of the proximal internal carotid arteries relative to normal distal artery lumen diameters (NASCET criteria). Labs Labs: Laboratory Results - last 24 hr 01/11/24 01/11/24 01/11/24 16:47 19:31 19:48 WBC RBC Hgb Hct MCV MCH MCHC RDW Plt Count MPV Immature Gran % (Auto) Neut % (Auto) Lymph % (Auto) [place] % (Auto) Eos % (Auto) Baso % (Auto) Lymph # (Auto) [place] # (Auto) Eos # (Auto) Baso # (Auto) Abs Immat Gran (auto) Absolute Neuts (auto) Absolute Nucleated RBC Nucleated RBC % Sodium Potassium Chloride Carbon Dioxide Anion Gap BUN Creatinine Estim Creat Clear Calc Estimated GFR Glucose POC Capillary Glucose 76 114 H 146 H Calcium 01/12/24 01/12/24 01/12/24 07:01 07:55 08:15 WBC 4.5 RBC 3.34 L Hgb 10.4 L Hct 34.2 L MCV 102.4 H MCH 31.1 MCHC 30.4 L RDW 20.1 H Plt Count 198 MPV 9.9 Immature Gran % (Auto) 0.4 Neut % (Auto) 65.8 Lymph % (Auto) 19.2 [place] % (Auto) 9.5 H Eos % (Auto) 4.0 Baso % (Auto) 1.1 Lymph # (Auto) 0.87 L [place] # (Auto) 0.4 Eos # (Auto) 0.2 Baso # (Auto) 0.1 Abs Immat Gran (auto) 0.02 Absolute Neuts (auto) 3.0 Absolute Nucleated RBC 0.000 Nucleated RBC % 0.0 Sodium 139 Potassium 3.9 Chloride 104 Carbon Dioxide 27 Anion Gap 8 BUN 21 H Creatinine 0.90 Estim Creat Clear Calc 50 Estimated GFR > 60 Glucose 70 POC Capillary Glucose 58 L* 74 Calcium 8.2 L 01/12/24 11:41 WBC RBC Hgb Hct MCV MCH MCHC RDW Plt Count MPV Immature Gran % (Auto) Neut % (Auto) Lymph % (Auto) [place] % (Auto) Eos % (Auto) Baso % (Auto) Lymph # (Auto) [place] # (Auto) Eos # (Auto) Baso # (Auto) Abs Immat Gran (auto) Absolute Neuts (auto) Absolute Nucleated RBC Nucleated RBC % Sodium Potassium Chloride Carbon Dioxide Anion Gap BUN Creatinine Estim Creat Clear Calc Estimated GFR Glucose POC Capillary Glucose 110 H Calcium Quality VTE Prophylaxis VTE prophylaxis: pharmacologic ordered Hospitalist MIPS Advance Care Plan I have confirmed that the patient's Advanced Care Plan is present, code status is documented, or surrogate decision maker is listed in patient medical record.: Yes Medication Reconciliation I have utilized all available resources to obtain, update and review the patients current medications (includes all prescriptions, OTC, herbals, cannabis, and nutritional supplements).: Yes
[2024-01-12 14:00] VITALS: BP 117/50; PULSE 66; RESP 14; TEMP 36.2; O2SAT 100
[2024-01-12 17:12] LABS: Glucose Point of Care 162 mg/dl (65-105)
[2024-01-12 20:31] LABS: Glucose Point of Care 165 mg/dl (65-105)
[2024-01-12 20:52] VITALS: PULSE 68
[2024-01-12] MEDS: INSULIN GLARGINE (*BKC) 100 UNITS/ML 8 UNITS SUB-Q (20:54)
[2024-01-12 21:06] VITALS: BP 134/61; PULSE 72; RESP 14; TEMP 35.9; O2SAT 96
[2024-01-13 05:02] VITALS: BP 126/60; PULSE 70; RESP 16; TEMP 36.2; O2SAT 100
[2024-01-13] MEDS: LEVOTHYROXINE SODIUM 100 MCG TABLET PO (06:13)
[2024-01-13 07:32] LABS: Basophils Absolute Auto 0.1 K/mm3 (0.0-0.1); Eosinophils Absolute Auto 0.2 K/mm3 (0-0.3); Eosinophils Percent Auto 3.6 % (0-4.4); Hematocrit 36.2 % (37.0-47.0); Immature Granulocyte Absolute 0.01 K/mm3 (0.00-0.031); Immature Granulocyte Percent A 0.2 % (0-0.5); Lymphocytes Absolute Auto 1.07 K/mm3 (0.9-3.2); Lymphocytes Percent Auto 20.4 % (18.3-44.2); Mean Corpuscular HGB Conc 30.4 g/dl (32-36); Mean Corpuscular Hemoglobin 31.3 pg (26-34); Mean Corpuscular Volume 103.1 fl (80-100); Mean Platelet Volume 10.2 fl (7.4-10.4); Monocytes Absolute Auto 0.5 K/mm3 (0.1-0.6); Monocytes Percent Auto 9.1 % (2.6-8.5); Neutrophils Absolute Auto 3.5 K/mm3 (1.3-6.7); Neutrophils Percent Auto 65.7 % (45.5-73.1); Platelet Count Result 220 k/mm3 (150-375); Red Blood Count 3.51 M/mm3 (4.2-5.4); White Blood Count 5.3 K/mm3 (4.5-10.0)
[2024-01-13] MEDS: carvediloL 6.25 MG TABLET PO ×2 (08:01→20:31)
[2024-01-13] MEDS: EMPAGLIFLOZIN 10 MG TABLET PO (08:01)
[2024-01-13] MEDS: SACUBITRIL/VALSARTAN 24-26 MG TABLET 1 TAB PO ×2 (08:01→20:31)
[2024-01-13] MEDS: ENOXAPARIN 40 MG/0.4 ML SYRINGE SUB-Q (08:01)
[2024-01-13] MEDS: GABAPENTIN 300 MG CAPSULE PO ×3 (08:01→16:08)
[2024-01-13] MEDS: FUROSEMIDE 20 MG TABLET PO (08:01)
[2024-01-13] MEDS: PANTOPRAZOLE 40 MG TABLET PO (08:01)
[2024-01-13] MEDS: POTASSIUM CHLORIDE 10 MEQ ER TABLET PO (08:01)
[2024-01-13] MEDS: ATORVASTATIN 40 MG TABLET PO (08:01)
[2024-01-13 08:21] LABS: Anion Gap 8 mmol/L (4-12); Blood Urea Nitrogen 22 mg/dL (7-17); Calcium 8.4 mg/dL (8.4-10.2); Carbon Dioxide 29 mmol/L (22-30); Chloride 101 mmol/L (98-107); Estimated CRCL calculation 50 ml/min; Estimated Glomerular Filt Rate > 60; Glucose 55 mg/dL (65-110); Potassium 4.2 mmol/L (3.4-5.0); Sodium 138 mmol/L (137-145)
[2024-01-13 08:37] LABS: Glucose Point of Care 66 mg/dl (65-105)
[2024-01-13 12:53] LABS: Glucose Point of Care 129 mg/dl (65-105)
--- NOTE | 2024-01-13 12:58 | PM.IMPN ---
Progress Note: A&P Assessment and Plan (1) Acute UTI: Code(s): N39.0 - Urinary tract infection, site not specified Status: Acute Assessment and Plan: - did not meet SIRS criteria on admission. - UA: Turbid, 2+ protein, trace glucose, 3+ blood, 3+ leuks, greater than 100 RBC and WBC, many epithelial cells, and 2+ bacteria - UC still pending. - Previous micro reviewed, no previously positive UC on file - started on Ceftriaxone on 01/09, continue for now. - Continue IV fluids hydration and monitor intake. (2) Slurred speech: Code(s): R47.81 - Slurred speech Status: Resolved Assessment and Plan: - Resolved. -head/neck CTA: 1. Normal aging brain. 2. 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 3. 0% stenosis of the proximal internal carotid arteries relative to normal distal artery lumen diameters (NASCET criteria). - no subjective or objective slurred speech on exam. - Defer further work-up for now. 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 Hold home sliding scale. - low dose TIDWM. - A1C 7.5 on this admission. (4) HTN (hypertension): Qualifiers: Hypertension type: unspecified Qualified Code(s): I10 - Essential (primary) hypertension Code(s): I10 - Essential (primary) hypertension Status: Chronic Assessment and Plan: - chronic, appears well controlled currently. - continue home medications: Coreg 6.25 mg b.i.d., Lasix 20 mg daily, Entresto 24-26 b.i.d. - monitor closely. (5) Dyslipidemia: Code(s): E78.5 - Hyperlipidemia, unspecified Status: Acute Assessment and Plan: - Continue statin. Plan Diet: Diabetic GI Prophylaxis: Not currently indicated DVT Prophylaxis: SCDs Lines: Peripheral Code Status: DNR Time Spent With Patient Time with patient: 15 - 25 minutes Subjective Date/time seen: 01/13/24 10:58 Patient calm on bedrest and states she feels alright and has no distressful symptoms. Oriented to location and dates, and states her birthday in in 2 days. States needs a wheelchair to move herself around but everyone is scared that she'll fall. Interval history: The patient presented via EMS from [facility] for further evaluation of slurred speech, right-sided weakness, and increased confusion. Her Head/Neck CTA showed normal aging brain, with no significant occlusion noted. Her UA was consisted with a UTI, that was likely the cause of her symptoms. Patient is for UTI with her urine cultures still pending. Review of Systems Review of Systems: ROS unobtainable: Yes unobtainable due to mental status (Limited, A&O x1) Exam Narrative: General - Alert and pleasantly confused, more alert today and in no acute distress Eyes - PERRLA, EOM intact ENT - No thrush, No erythema Neck - No noticeable or palpable swelling Lymph Nodes - No lymphadenopathy Cardiovascular - RRR no murmurs, no JVD Lungs: Clear to auscultation, No wheezing, use of accessory muscles, no crackles Skin - Skin warm and dry, no wounds or rashes Abdomen - Normal bowel sounds, abdomen soft and nontender Extremities - No edema, cyanosis or clubbing. Bilateral AKA. Musculoskeletal - Strength 3/5 bilaterally. Neurological ? Alert and oriented x 2, PERRLA, EOMI, Psych: Pleasant and co-operative. Const: General: comfortable and no acute distress Other: female, very sleepy but nontoxic appearance HENMT: Face/Nose/Sinus: Normal nares present Mouth: Yes moist mucous membranes Eyes: General: appearance normal, both eyes and all related structures Sclera: sclerae normal Pupils: Equal, round and reactive pupils present EOM: EOMs intact bilaterally Resp: Effort & Inspection: normal respiratory effort Auscultation: clear to auscultation bilaterally Cardio: Rate: regular rate Rhythm: regular rhythm GI: Other: Abdomen soft, nondistended, nontender. Skin: General skin exam: normal color and no rashes or lesions noted Wounds: no wounds Neuro: Cranial nerves: Yes Equal, round and reactive pupils present Speech: normal speech Sensory Exam: normal sensation Other: +generalized weakness, A/Ox2. Extrem: Other: AKA bilaterally Psych: Mental Status: mental status grossly normal Affect: normal affect Other: Poor insight and judgment Objective Data Vital Signs Vital Signs: Vital Signs - 24 hr 01/12/24 14:00 01/12/24 20:52 01/12/24 21:06 Temperature 97.2 F L 96.7 F L Pulse Rate 66 68 72 Respiratory Rate 14 14 Blood Pressure 117/50 L 134/61 Pulse Oximetry 100 96 Oxygen Delivery 01/12/24 20:00 01/13/24 05:02 01/13/24 08:00 Temperature 97.1 F L Pulse Rate 70 Respiratory Rate 16 Blood Pressure 126/60 Pulse Oximetry 100 Oxygen Delivery Room Air Room Air Intake/Output Intake/Output: Intake & Output 01/10/24 01/11/24 01/12/24 01/13/24 23:59 23:59 23:59 23:59 Intake Total 50 1336 798 220 Balance 50 1336 798 220 Meds/Results Medications: Active Medications Generic Name Dose Route Start Last Admin Trade Name Freq PRN Reason Stop Dose Admin Acetaminophen 650 mg 01/10/24 16:52 Acetaminophen 325 Mg Tablet PO Q6H PRN Mild Pain (1-3) or Fever Atorvastatin Calcium 40 mg 01/11/24 09:00 01/13/24 08:01 Atorvastatin 40 Mg Tablet PO 40 mg DAILY KASIE Administration Bisacodyl 10 mg 01/10/24 21:51 Bisacodyl 10 Mg Suppository RECTAL PRN PRN Constipation Carvedilol 6.25 mg 01/10/24 22:00 01/13/24 08:01 Carvedilol 6.25 Mg Tablet PO 6.25 mg Q12HR KASIE Administration Dextrose 12.5 gm 01/10/24 16:49 Dextrose 50% 25 Gm/50 Ml Syringe IV PUSH PRN PRN Hypoglycemia Protocol Empagliflozin 10 mg 01/11/24 09:00 01/13/24 08:01 Empagliflozin 10 Mg Tablet PO 10 mg DAILY KASIE Administration Enoxaparin Sodium 40 mg 01/13/24 09:00 01/13/24 08:01 Enoxaparin 40 Mg/0.4 Ml Syringe SUB-Q 40 mg DAILY KASIE Administration Furosemide 20 mg 01/11/24 09:00 01/13/24 08:01 Furosemide 20 Mg Tablet PO 20 mg DAILY KASIE Administration Gabapentin 300 mg 01/11/24 09:00 01/13/24 12:24 Gabapentin 300 Mg Capsule PO 300 mg TID KASIE Administration Glucagon 1 mg 01/10/24 16:49 Glucagon For Inj 1 Mg Vial IM PRN PRN Hypoglycemia Protocol Glucose 15 gm 01/10/24 16:49 Glucose Oral Gel 15 Gm Of Glucse In 37.5 Gm Tube PO PRN PRN Hypoglycemia Protocol Ceftriaxone Sodium 1 gm in 50 mls @ 100 mls/hr 01/11/24 16:00 01/12/24 15:36 Rocephin 1 Gm/Ns 50 Ml IVPB 100 mls/hr Q24H KASIE Administration Dextrose 1,000 mls @ 100 mls/hr 01/10/24 16:49 Dextrose 5% 1,000 Ml IVPB PRN PRN Hypoglycemia Protocol Insulin Aspart 2 - 5 units 01/10/24 17:00 01/13/24 12:01 Insulin Aspart (*Bkc) 100 Units/Ml SUB-Q Not Given TIDWM [facility] Protocol Insulin Glargine 4 units 01/13/24 21:00 Insulin Glargine (*Bkc) 100 Units/Ml SUB-Q QHS [facility] Levothyroxine Sodium 100 mcg 01/11/24 06:30 01/13/24 06:13 Levothyroxine Sodium 100 Mcg Tablet PO 100 mcg DAILY@0630 [facility] Administration Ondansetron HCl 4 mg 01/10/24 21:51 Ondansetron Hcl Odt 4 Mg Tablet PO Q8H PRN Nausea Pantoprazole Sodium 40 mg 01/11/24 09:00 01/13/24 08:01 Pantoprazole 40 Mg Tablet PO 40 mg QAM [facility] Administration Potassium Chloride 10 meq 01/11/24 08:00 01/13/24 08:01 Potassium Chloride 10 Meq Er Tablet PO 10 meq DAILY@0800 [facility] Administration Sacubitril/Valsartan 1 tab 01/10/24 22:05 01/13/24 08:01 Sacubitril/Valsartan 24-26 Mg Tablet PO 1 tab Q12HR KASIE Administration Radiology Results: ITS Impressions Head/Neck CTA 01/10/24 15:31 IMPRESSION: 1. Normal aging brain. 2. 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 3. 0% stenosis of the proximal internal carotid arteries relative to normal distal artery lumen diameters (NASCET criteria). Labs Labs: Laboratory Results - last 24 hr 01/12/24 01/12/24 01/13/24 17:07 19:47 06:56 WBC 5.3 RBC 3.51 L Hgb 11.0 L Hct 36.2 L MCV 103.1 H MCH 31.3 MCHC 30.4 L RDW 20.0 H Plt Count 220 MPV 10.2 Immature Gran % (Auto) 0.2 Neut % (Auto) 65.7 Lymph % (Auto) 20.4 [place] % (Auto) 9.1 H Eos % (Auto) 3.6 Baso % (Auto) 1.0 Lymph # (Auto) 1.07 [place] # (Auto) 0.5 Eos # (Auto) 0.2 Baso # (Auto) 0.1 Abs Immat Gran (auto) 0.01 Absolute Neuts (auto) 3.5 Absolute Nucleated RBC 0.000 Nucleated RBC % 0.0 Sodium 138 Potassium 4.2 Chloride 101 Carbon Dioxide 29 Anion Gap 8 BUN 22 H Creatinine 0.90 Estim Creat Clear Calc 50 Estimated GFR > 60 Glucose 55 L* POC Capillary Glucose 162 H 165 H Calcium 8.4 01/13/24 01/13/24 08:34 12:48 WBC RBC Hgb Hct MCV MCH MCHC RDW Plt Count MPV Immature Gran % (Auto) Neut % (Auto) Lymph % (Auto) [place] % (Auto) Eos % (Auto) Baso % (Auto) Lymph # (Auto) [place] # (Auto) Eos # (Auto) Baso # (Auto) Abs Immat Gran (auto) Absolute Neuts (auto) Absolute Nucleated RBC Nucleated RBC % Sodium Potassium Chloride Carbon Dioxide Anion Gap BUN Creatinine Estim Creat Clear Calc Estimated GFR Glucose POC Capillary Glucose 66 129 H Calcium Quality VTE Prophylaxis VTE prophylaxis: pharmacologic ordered Hospitalist [facility] Advance Care Plan I have confirmed that the patient's Advanced Care Plan is present, code status is documented, or surrogate decision maker is listed in patient medical record.: Yes Medication Reconciliation I have utilized all available resources to obtain, update and review the patients current medications (includes all prescriptions, OTC, herbals, cannabis, and nutritional supplements).: Yes
[2024-01-13 15:17] VITALS: BP 149/65; PULSE 65; RESP 16; O2SAT 100
[2024-01-13 17:13] LABS: Glucose Point of Care 139 mg/dl (65-105)
[2024-01-13 19:47] LABS: Glucose Point of Care 131 mg/dl (65-105)
[2024-01-13 20:00] VITALS: PULSE 81; RESP 16; O2SAT 100
[2024-01-13 20:31] VITALS: PULSE 81
[2024-01-13] MEDS: INSULIN GLARGINE (*BKC) 100 UNITS/ML SUB-Q (20:32)
[2024-01-13 21:47] VITALS: BP 120/40; PULSE 69; RESP 12; TEMP 36.7; O2SAT 99
--- NOTE | 2024-01-14 01:28 | PC.NURSE ---
Daylight Savings Time For Daylight Savings Time Ending in the Fall - Clocks are moved back. For Daylight Savings Time Beginning in the Spring - Clocks are moved ahead. For [facility], the time of change occurs at 0200 hrs. Time is taken from the sports book server. This entry on the patient's chart recognizes the change in time reflected during documentation. Example: 2 entries for vital signs may be charted for 0200 hrs.
[2024-01-14] MEDS: LEVOTHYROXINE SODIUM 100 MCG TABLET PO (05:35)
[2024-01-14 06:00] VITALS: BP 113/42; PULSE 72; RESP 22; TEMP 36.4; O2SAT 100
[2024-01-14 07:22] LABS: Basophils Absolute Auto 0.1 K/mm3 (0.0-0.1); Eosinophils Absolute Auto 0.2 K/mm3 (0-0.3); Eosinophils Percent Auto 3.1 % (0-4.4); Hematocrit 33.7 % (37.0-47.0); Hemoglobin 10.3 g/dL (12.0-15.0); Immature Granulocyte Absolute 0.02 K/mm3 (0.00-0.031); Immature Granulocyte Percent A 0.4 % (0-0.5); Lymphocytes Absolute Auto 1.04 K/mm3 (0.9-3.2); Lymphocytes Percent Auto 20.1 % (18.3-44.2); Mean Corpuscular HGB Conc 30.6 g/dl (32-36); Mean Corpuscular Hemoglobin 30.6 pg (26-34); Monocytes Absolute Auto 0.4 K/mm3 (0.1-0.6); Monocytes Percent Auto 8.3 % (2.6-8.5); Neutrophils Absolute Auto 3.5 K/mm3 (1.3-6.7); Neutrophils Percent Auto 67.1 % (45.5-73.1); Platelet Count Result 216 k/mm3 (150-375); Red Blood Count 3.37 M/mm3 (4.2-5.4); Red Cell Distribution Width 19.4 % (11.5-14.5); White Blood Count 5.2 K/mm3 (4.5-10.0)
[2024-01-14] MEDS: SACUBITRIL/VALSARTAN 24-26 MG TABLET 1 TAB PO (08:14)
[2024-01-14] MEDS: FUROSEMIDE 20 MG TABLET PO (08:14)
[2024-01-14] MEDS: PANTOPRAZOLE 40 MG TABLET PO (08:14)
[2024-01-14] MEDS: GABAPENTIN 300 MG CAPSULE PO ×3 (08:14→17:23)
[2024-01-14] MEDS: carvediloL 6.25 MG TABLET PO (08:14)
[2024-01-14] MEDS: ATORVASTATIN 40 MG TABLET PO (08:14)
[2024-01-14] MEDS: ENOXAPARIN 40 MG/0.4 ML SYRINGE SUB-Q (08:14)
[2024-01-14] MEDS: EMPAGLIFLOZIN 10 MG TABLET PO (08:14)
[2024-01-14] MEDS: POTASSIUM CHLORIDE 10 MEQ ER TABLET PO (08:14)
[2024-01-14 08:16] LABS: Glucose Point of Care 195 mg/dl (65-105)
[2024-01-14 08:18] LABS: Anion Gap 5 mmol/L (4-12); Blood Urea Nitrogen 23 mg/dL (7-17); Calcium 7.9 mg/dL (8.4-10.2); Carbon Dioxide 31 mmol/L (22-30); Chloride 102 mmol/L (98-107); Estimated CRCL calculation 50 ml/min; Estimated Glomerular Filt Rate > 60; Glucose 163 mg/dL (65-110); Potassium 3.6 mmol/L (3.4-5.0); Sodium 138 mmol/L (137-145)
[2024-01-14 12:40] LABS: Glucose Point of Care 195 mg/dl (65-105)
[2024-01-14] MEDS: FLUCONAZOLE 400 MG/NACL 200 ML 400 MG/200 ML BAG 100 MG IVPB (14:05)
--- NOTE | 2024-01-14 16:25 | PM.DS ---
DS: Admitting Diagnosis Discharge Date 01/14/24 Admitting Diagnosis Altered Mental Status with Slurred Speech DS: Discharge Diagnosis Discharge Diagnosis (1) Acute UTI: Code(s): N39.0 - Urinary tract infection, site not specified Status: Acute Assessment and Plan: - did not meet SIRS criteria on admission. - UA: Turbid, 2+ protein, trace glucose, 3+ blood, 3+ leuks, greater than 100 RBC and WBC, many epithelial cells, and 2+ bacteria - UC growing Criselda Glabrata. - Blood cultures negative. - Treated with Ceftriaxone as we awaited cultures. - Ceftriaxone discontinued and patient started on Fluconazole. - Received IV fluids hydration as well. (2) Slurred speech: Code(s): R47.81 - Slurred speech Status: Resolved Assessment and Plan: - Resolved. - Possibly related to UTI. -head/neck CTA: 1. Normal aging brain. 2. 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 3. 0% stenosis of the proximal internal carotid arteries relative to normal distal artery lumen diameters (NASCET criteria). - no subjective or objective slurred speech during hospital stay. - No further work-up required. (3) AMS (altered mental status): Code(s): R41.82 - Altered mental status, unspecified Status: Acute Assessment and Plan: - Possibly related to UTI. - Patient appeared baseline prior to discharge back to SNF. (4) Diabetes: Qualifiers: Diabetes mellitus type: type 2 Diabetes mellitus lymphedema therapist insulin use: with lymphedema therapist use Diabetes mellitus complication status: with other specified complication Qualified Code(s): E11.69 - Type 2 diabetes mellitus with other specified complication; Z79.4 - care home (current) use of insulin Code(s): E11.9 - Type 2 diabetes mellitus without complications Status: Chronic Assessment and Plan: - hypoglycemia protocol inpatient. - POC blood glucose ACHS inpatient. - home medication: Continue Lantus 8 units HS, Jardiance 10 mg. Home sliding scale held inpatient. - Treated with low dose TIDWM inpatient. - A1C 7.5 on this admission. (5) HTN (hypertension): Qualifiers: Hypertension type: unspecified Qualified Code(s): I10 - Essential (primary) hypertension Code(s): I10 - Essential (primary) hypertension Status: Chronic Assessment and Plan: - chronic and well controlled inpatient. - continued inpatient on home medications: Coreg 6.25 mg b.i.d., Lasix 20 mg daily, Entresto 24-26 b.i.d. (6) Dyslipidemia: Code(s): E78.5 - Hyperlipidemia, unspecified Status: Acute Assessment and Plan: - Continued on statin. Plan Discharge to SNF DS: Summary Hospital Course Reason for hospitalization: Altered Mental Status Hospital Course: Patient was transferred to this facility fro her SNF with reports of altered mental status and slurred speech. Pt had a negative head/neck CTA. Her UA was suspicious for possible UTI with +ve bacteria and +ve Leukocyte Esterase on her urine. Blood and urine cultures were obtained and patient treated empirically with Ceftriaxone for 4 days. Her urine cultures have been NGTD, with her UA growing Criselda Glabrata. Patient was given a dose of Fluconazole IV and will be discharged on oral Fluconazole to complete treatment. Her mentation appears baseline with no slurred speech noted inpatient. She was slightly dehydrated and was treated with IVF otherwise all her other labs were unremarkable. Patient excited to go back to SNF day before her birthday and denies any distressful symptoms. No acute distress was noted or reported prior to discharge. Status at Discharge Functional status at discharge: bed bound Overall status at discharge: patient is progressing back to baseline Time Spent with Patient Time attestation: Total time spent providing and/or coordinating discharge services: Time spent: Greater than 30 minutes Exam Narrative: General - Alert and fairly well oriented, no acute distress noted. Eyes - PERRLA, EOM intact ENT - No thrush, No erythema Neck - No noticeable or palpable swelling Lymph Nodes - No lymphadenopathy Cardiovascular - RRR no murmurs, no JVD Lungs: Clear to auscultation, No wheezing, use of accessory muscles, no crackles Skin - Skin warm and dry, no wounds or rashes Abdomen - Normal bowel sounds, abdomen soft and nontender Extremities - No edema, cyanosis or clubbing. Bilateral AKA. Musculoskeletal - Strength 3/5 bilaterally. Neurological ? Alert and oriented x 3, PERRLA, EOMI, Psych: Pleasant and co-operative. DS: Data Data Completed and Pending Labs on day of discharge: Labs from last 24 hours 01/14/24 01/14/24 01/14/24 12:34 08:11 06:19 WBC 5.2 RBC 3.37 L Hgb 10.3 L Hct 33.7 L MCV 100.0 MCH 30.6 MCHC 30.6 L RDW 19.4 H Plt Count 216 MPV 10.0 Immature Gran % (Auto) 0.4 Neut % (Auto) 67.1 Lymph % (Auto) 20.1 Yell % (Auto) 8.3 Eos % (Auto) 3.1 Baso % (Auto) 1.0 Lymph # (Auto) 1.04 Yell # (Auto) 0.4 Eos # (Auto) 0.2 Baso # (Auto) 0.1 Abs Immat Gran (auto) 0.02 Absolute Neuts (auto) 3.5 Absolute Nucleated RBC 0.000 Nucleated RBC % 0.0 Sodium 138 Potassium 3.6 Chloride 102 Carbon Dioxide 31 H Anion Gap 5 BUN 23 H Creatinine 0.90 Estim Creat Clear Calc 50 Estimated GFR > 60 Glucose 163 H POC Capillary Glucose 195 H 195 H Calcium 7.9 L 01/13/24 19:37 WBC RBC Hgb Hct MCV MCH MCHC RDW Plt Count MPV Immature Gran % (Auto) Neut % (Auto) Lymph % (Auto) Yell % (Auto) Eos % (Auto) Baso % (Auto) Lymph # (Auto) Yell # (Auto) Eos # (Auto) Baso # (Auto) Abs Immat Gran (auto) Absolute Neuts (auto) Absolute Nucleated RBC Nucleated RBC % Sodium Potassium Chloride Carbon Dioxide Anion Gap BUN Creatinine Estim Creat Clear Calc Estimated GFR Glucose POC Capillary Glucose 131 H Calcium Discharge Plan Discharge Attending physician on discharge: Dion Davidson Discharging Clinician: Nahun Steele Anticipated Discharge Date/Time: 01/14/24 16:43 Patient Disposition: SNF Activity: as tolerated Diet: heart healthy and diabetic Patient Language: [place] Stand Alone Forms: General Discharge Information Discharge Medications: New fluconazole [Diflucan] 200 mg tablet 200 mg PO BID Qty: 13 0RF Continued atorvastatin 40 mg tablet 40 mg PO DAILY ondansetron HCl 4 mg tablet 4 mg PO Q8H PRN (Reason: Nausea) levothyroxine 100 mcg tablet 100 mcg PO DAILY insulin aspart U-100 [Novolog U-100 Insulin aspart] 100 unit/mL solution See Rx Instructions .ROUTE .COMPLEX Rx Instructions: 150-200 3units, 201-250 6units, 251-300 9units, 301-350 123 units, 351-400 15 units, greater than 401-800 20 units and notify bisacodyl 10 mg Suppository 10 mg RECTAL PRN PRN (Reason: Constipation) acetaminophen [Tylenol] 325 mg Capsule 650 mg PO Q6H PRN (Reason: Pain (Scale Score 1-3)) Jardiance 10 mg Tablet 10 mg PO DAILY 30 Days Qty: 30 0RF Entresto 24-26 mg Tablet 1 tablet PO Q12HR 30 Days Qty: 60 0RF carvedilol [Coreg] 6.25 mg tablet 6.25 mg PO BID 30 Days Qty: 60 0RF Rx Instructions: must administer with a meal/food gabapentin 300 mg capsule 300 mg PO TID potassium chloride 10 mEq capsule, extended release 10 meq PO DAILY omeprazole 20 mg capsule,delayed release(DR/EC) 20 mg PO DAILY furosemide [Lasix] 40 mg tablet 20 mg PO DAILY Lantus U-100 Insulin 8 unit subcut QHS Date of admission: 01/11/24 09:25 Primary Care Provider: UNKNOWN,DOCTOR Admitting Provider: Sallie Kasper Attending physician on admission: Marlin Ulrich Condition: Serious Quality VTE Prophylaxis VTE prophylaxis: pharmacologic ordered If No VTE Prophylaxis Answer both mechanical and pharmacologic: Reason no mechanical VTE proph: low risk/not indicated Hospitalist MIPS Heart Failure (Exclusion) Patient has history of Heart Transplant or Left Ventricular Assistive Device?: No IF YES, STOP HERE Heart Failure (Qualifier) Patient has current or prior documentation of LVEF less than or equal to 40%, or mod/servere depressed LVSF?: No IF NO, STOP HERE If Yes, Heart Failure (Qualifier) Patient was prescribed or already taking an Angiotensin-Converting Enzyme ([place]) Inhibitor, or Antiotensin Receptor Consuelo (ARB): Yes Patient was prescribed or already taking bisoprolol, carvedilol, or sustained release metoprolol succinate: Yes
[2024-01-14 17:19] LABS: Glucose Point of Care 207 mg/dl (65-105)
== END 2024-01-14 18:05 | DRG 758 ==
LOC: ANHED 13:54 → ANH3MEDSUR 17:27
PROVIDERS: Nurse Practitioner Acute Care; Student in an Organized Health Care Education/Training Program; Admitting Provider Hospitalist; Emergency Provider Emergency Medicine; Visit Provider Nurse Practitioner Adult Health
DX: B37.49 Other urogenital candidiasis (principal); I50.42 Chronic combined systolic (congestive) and diastolic (congestive) heart failure; I11.0 Hypertensive heart disease with heart failure; E86.0 Dehydration; R47.81 Slurred speech; E11.9 Type 2 diabetes mellitus without complications; E78.5 Hyperlipidemia, unspecified; F03.90 Unspecified dementia, unspecified severity, without behavioral disturbance, psychotic disturbance, mood disturbance, and anxiety; I73.9 Peripheral vascular disease, unspecified; Z66 Do not resuscitate; Z79.4 Long term (current) use of insulin; Z89.612 Acquired absence of left leg above knee; Z89.611 Acquired absence of right leg above knee; Z85.850 Personal history of malignant neoplasm of thyroid
CPT/HCPCS: 36415; 70496; 70498; 80048; 80053; 81001; 82948; 83036; 85025; 85610; 85730; 87086; 96361; 96365; 99285; A9270; G0378; J0696; J1450; J1650; J1815; J7030; Q9967

== ENCOUNTER 2024-01-30 11:19 | Inpatient (IN) | payer MEDICARE, MEDICAID, SELFPAY ==
[2024-01-30] VITALS (20 sets, daily range): BP systolic 92–123; BP diastolic 32–66; PULSE 65–75; RESP 14–22; TEMP 36.4–36.7; O2SAT 92–100
--- NOTE | ~2024-01-30 | MR_ITS ---
MR brain/brain stem wo/w con Ordering provider: Sharon Mccarthy APRN History: 69 years Female with . AMS . Comparison: CT head performed yesterday. Technique: MRI brain was performed with and without contrast. 15 mL MultiHance was injected IV. FINDINGS: BONES: Normal. CRANIOCERVICAL JUNCTION: normal. PITUITARY: Normal. MAJOR INTRACRANIAL VESSELS: Normal flow void. OPTIC NERVES AND CRANIAL NERVES VII AND VIII COMPLEXES: Grossly normal. BRAIN PARENCHYMA AND CSF SPACES: T2 and FLAIR hyperintense signal areas seen in the right and left c erebellar peduncles. Few small T2 hyperintense signal areas are seen in the deep white matter. The br ainstem and cerebellum are normal. No acute or chronic intracranial hemorrhage. No extra axial fluid collections. Diffusion weighted and ADC mapping images reveal no recent ischemia. No midline shift or mass effect. No abnormal contrast enhancement. PARANASAL SINUSES: Normal. MASTOIDS: Normal SUPERFICIAL/SURROUNDING SOFT TISSUES: Normal. IMPRESSION: T2 and FLAIR hyperintense signal areas in the cerebellar peduncles with a few scattered lesions in th e cerebral deep white matter which may indicate white matter disease. The lesion is seen in the left cerebellar peduncle is adjacent to the left acoustic nerve. No enhancement seen. Follow-up advised. Reviewed, dictated and finalized at location A. NDSMAN IMPRESSION: T2 and FLAIR hyperintense signal areas in the cerebellar peduncles with a few s cattered lesions in the cerebral deep white matter which may indicate white mat ter disease. The lesion is seen in the left cerebellar peduncle is adjacent to the left acoustic nerve. No enhancement seen. Follow-up advised.
--- NOTE | ~2024-01-30 | CT_ITS ---
EXAMINATION:CT diagnostic chest wo con DATE: 01/30/2024 15:43 INDICATION: Subcutaneous gas in right breast. TECHNIQUE: Computed tomography (CT) of the chest was performed without intravenous contrast. Automate d exposure control and iterative reconstruction technique were employed. The dose-length product (DLP ) was 500.50 mGy-cm. COMPARISON: CT abdomen and pelvis 01/30/2024, 05/16/2022 FINDINGS: The lungs demonstrate mild atelectasis. There is smooth septal thickening bilaterally, cons istent mild pulmonary edema. There are trace pleural effusions. Cardiomegaly is noted. There are kole nary artery calcifications. There are calcifications of the aortic valve. There is a small pericardia l effusion. There is gas in veins in the anterior chest wall and in the right atrium of the heart and main pulmonary artery, likely from IV injection. There is a 6.7 x 5.8 cm thick-walled fluid collecti on with wall calcifications in right breast, likely a seroma. Body wall edema is distended. IMPRESSION: 1. Venous gas in anterior chest wall, likely from IV injection, likely not clinically significant. 2. Mild pulmonary edema. 3. Small pericardial effusion. 4. Cardiomegaly. 5. 6.7 cm fluid collection in right breast that is chronic, likely a seroma. Reviewed, dictated and finalized at location A. TROLYSIS OPERATOR IMPRESSION: 1. Venous gas in anterior chest wall, likely from IV injection, likely not clin ically significant. 2. Mild pulmonary edema. 3. Small pericardial effusion. 4. Cardiomegaly. 5. 6.7 cm fluid collection in right breast that is chronic, likely a seroma.
--- NOTE | ~2024-01-30 | CT_ITS ---
EXAMINATION: CT abdomen pelvis w con DATE: 01/30/2024 14:39 INDICATION: Hernia. Diarrhea. TECHNIQUE: Computed tomography (CT) of the abdomen and pelvis was performed with 100 mL Omnipaque-350 intravenous contrast. Automated exposure control and iterative reconstruction technique were employe d. The dose-length product was 1283.89 mGy-cm. COMPARISON: 05/16/2022 FINDINGS: Cardiomegaly and unchanged small pericardial effusion. Mild bibasilar atelectasis. Partially visualiz ed right breast implant with peripheral calcifications. There is some soft tissue gas in the right br east which appears to track along the linear vessels, likely intravenous. Multiple hepatic and spleni c calcifications consistent with old granulomatous disease. Gallbladder is decompressed. Pancreas and bilateral adrenal glands are normal. There is mild bilateral renal cortical atrophy. Gas and a Kaplan catheter within the decompressed bladder. There is wall thickening of the bladder and mild stranding in the immediately surrounding fat suspicious for cystitis which could be either acute or chronic. T here is gas within the left ureter, renal pelvis and calyces with peripheral enhancing urothelium joseph picious for ascending urinary tract infection. There are some gas beginning in the urethra alongside the Kaplan catheter which extends anteriorly into the region of the widened pubic symphysis suggesting fistulous communication to the urethra. Irregular contour to the pubic body with suggestion of chron ic corticated erosions which could be related to chronic osteomyelitis. Anteverted uterus and right a dnexa are unremarkable. 2.0 cm left adnexal cyst. There is some bowel wall thickening at the rectum a long with a rectal tube. Bowels including the appendix are otherwise normal. Postoperative change of prior ventral hernia mesh repair. There is a partially rim calcified loculated subcutaneous fluid col lection superficial to the mesh repair which measures 14.7 cm craniocaudally and 10.1 x 7.2 cm arminda l transaxial dimensions. No free intraperitoneal gas or fluid. No pathologically enlarged abdominal o r pelvic lymphadenopathy. Extensive body wall edema. Mild degenerative skeletal changes in the visual ized spine and pelvis. IMPRESSION: 1. Rectal tube in expected position with mild rectal wall thickening and perirectal inflammatory stra nding suggestive of mild proctitis. 2. Likely cystitis with ascending left urinary tract infection. 3. Soft tissue gas at the right breast which appears intravascular potentially intravenous related to IV catheter placement. Correlate with clinical history. 4. Recommend with chronic small pericardial effusion. 5. Likely proctitis which could related to stercoral colitis or the presence of a rectal tube. 6. Widened pubic symphysis with irregular cortical contours with gas tracking from the pubic symphysi s to the urethra which is suspicious for fistulous communication and secondary chronic osteomyelitis. Reviewed, dictated and finalized at location B. LE DATA WAREHOUSE DEVELOPER IMPRESSION: 1. Rectal tube in expected position with mild rectal wall thickening and perire ctal inflammatory stranding suggestive of mild proctitis. 2. Likely cystitis with ascending left urinary tract infection. 3. Soft tissue gas at the right breast which appears intravascular potentially intravenous related to IV catheter placement. Correlate with clinical history. 4. Recommend with chronic small pericardial effusion. 5. Likely proctitis which could related to stercoral colitis or the presence of a rectal tube. 6. Widened pubic symphysis with irregular cortical contours with gas tracking f rom the pubic symphysis to the urethra which is suspicious for fistulous commun ication and secondary chronic osteomyelitis.
--- NOTE | ~2024-01-30 | XR_ITS ---
XR chest 1V portable Ordering provider: Laith Matos MD History: 69 years Female with . CHF . Comparison: None. FINDINGS: MEDIASTINUM: The cardiac silhouette is moderately enlarged. Calcified enlarged azygos lymph node is s een. Congestive graciela. Calcified lesion in the right breast area. LUNGS: No pneumothorax. Bilateral interstitial thickening is seen suggestive of pulmonary edema versu s pneumonitis. Atelectasis versus pneumonia in the left lung base is not excluded. OTHER: No free air under the diaphragm. IMPRESSION: Cardiomegaly with cardiac decompensation and pulmonary edema. Superimposed pneumonitis is not exclude d. Left lower lobe atelectasis versus pneumonia. Possibility of effusion excluded. Reviewed, dictated and finalized at location A. SCHOOL HVAC R INSTRUCTOR IMPRESSION: Cardiomegaly with cardiac decompensation and pulmonary edema. Superimposed pneu monitis is not excluded. Left lower lobe atelectasis versus pneumonia. Possibility of effusion excluded.
--- NOTE | ~2024-01-30 | US_ITS ---
EXAM: Right breast ultrasound HISTORY: Right breast fluid collection, hx breast cancer COMPARISON: . Reference is also made to the CT examination of the chest dated 01/30/2024 and dating back to 3. Reference is also made to a plain film evaluation of the chest dated 12/05/2021. FINDINGS: At the 11:00 position of the right breast, there is is a nearly homogeneous focus of decreased echoge nicity measuring 4.6 x 6.4 x 5.3 cm. This focus has a calcified rim, suggesting chronicity. No increased vascularity is identified. Looking back at prior imaging, this focus has decreased in size since 12/05/2021 for which no further follow-up is needed. IMPRESSION: Chronic calcified avascular collection within the soft tissues of the right breast, decreased in size when compared with chest radiograph dated 12/05/2021, for which no further follow-up is needed. Reviewed, dictated and finalized at location A. NGUAL TRAINER IMPRESSION: Chronic calcified avascular collection within the soft tissues of the right crow ast, decreased in size when compared with chest radiograph dated 12/05/2021, for which no further follow-up is needed.
--- NOTE | ~2024-01-30 | XR_ITS ---
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 RESULT: Lines, tubes, and devices: None. Lungs and pleura: Stable appearing opacity in the left lower lung likely secondary to cardiomegaly/p ericardial effusion demonstrated in the prior CT. Mild diffuse reticular opacities with indistinct ve ssels. Minor fissure fluid. Cardiomediastinal silhouette: Stable. Other: No acute osseous or upper abdominal finding. Calcified right breast mass. IMPRESSION: Mild interstitial edema. Reviewed, dictated and finalized at location K. E PLANT SUPERVISOR IMPRESSION: Mild interstitial edema.
--- NOTE | ~2024-01-30 | MR_ITS ---
EXAMINATION: MR pelvis wo/w con DATE: 01/31/2024 16:17 INDICATION: Osteomyelitis of the pubic bones. TECHNIQUE: Magnetic resonance imaging (MRI) of the pelvis was performed without and with 15 mL MultiH ance intravenous contrast. COMPARISON: CT abdomen and pelvis 01/30/2024 FINDINGS: There is a 9.3 x 6.1 cm fluid collection in anterior abdominal wall, consistent with a seroma. A rect al tube is noted. There is wall thickening of the rectosigmoid. There is a Kaplan catheter in expected position. There is widespread edema of the intra-abdominal fat and body wall fat. There is trace asc ites. There is increased T2-weighted signal intensity throughout the musculature, likely subacute den ervation. There is widening of the pubic symphysis with enhancing tissue in the pubic symphysis. Ther e is sclerosis of the parasymphyseal pubis on either side. There is severe osteoarthritis of the hips . IMPRESSION: 1. Chronic osteomyelitis at the pubic symphysis. 2. Wall thickening of the rectosigmoid, consistent with colitis. 3. 9.3 cm fluid collection in anterior abdominal wall, likely a seroma. Reviewed, dictated and finalized at location A. NCIAL SYSTEMS ANALYST
--- NOTE | ~2024-01-30 | CT_ITS ---
EXAMINATION: CT brain wo con DATE: 02/05/2024 21:26 INDICATION: AMS . TECHNIQUE: Computed tomography (CT) of the head was performed without intravenous contrast. The mA wa s adjusted according to patient size. Iterative reconstruction technique was employed. The dose-lengt h product was 605.33 mGy-cm. COMPARISON: 01/10/2024. FINDINGS: No acute intracranial hemorrhage or extra-axial fluid collection. No hydrocephalus, mass, or herniation. No acute ischemic infarct. Unremarkable dural venous sinus attenuation. No acute osseous abnormality. Bilateral mastoid fluid, the remaining aerated spaces are clear. Mild atrophy and chronic white matter change. Atherosclerotic intracranial calcification. Bilateral b jessica ganglia and cerebellar calcifications. IMPRESSION: No acute intracranial process. Reviewed, dictated and finalized at location K. GER CLINICAL APPLICATIONS
--- NOTE | 2024-01-30 11:58 | ECG_ITS ---
Test Date: 2024-01-30 12:11:33 Measurements Intervals [place] Rate: 71 P: 41 NM: 244 QRS: -50 QRSD: 96 T: 161 QT: 422 QTc: 460 Interpretive Statements SINUS RHYTHM WITH FIRST DEGREE AV BLOCK LEFT AXIS DEVIATION LOW QRS VOLTAGE IN LIMB LEADS ANTEROSEPTAL INFARCT, AGE INDETERMINATE ST-T WAVE ABNORMALITY IN HIGH LATERAL LEADS- CONSIDER ISCHEMIA ABNORMAL ECG No previous ECG available for comparison Electronically Signed On 01-30-2024 12:46:26 PEDIATRIC ASSOCIATE by Rowdy Law D.O.
[2024-01-30 12:18] LABS: Basophils Percent Auto 0.5 % (0.2-1.2); Eosinophils Percent Auto 0.1 % (0-4.4); Hematocrit 30.9 % (37.0-47.0); Hemoglobin 9.7 g/dL (12.0-15.0); Immature Granulocyte Absolute 0.03 K/mm3 (0.00-0.031); Immature Granulocyte Percent A 0.4 % (0-0.5); Lymphocytes Percent Auto 9.5 % (18.3-44.2); Mean Corpuscular HGB Conc 31.4 g/dl (32-36); Mean Corpuscular Volume 98.7 fl (80-100); Mean Platelet Volume 10.3 fl (7.4-10.4); Monocytes Absolute Auto 0.4 K/mm3 (0.1-0.6); Neutrophils Absolute Auto 6.2 K/mm3 (1.3-6.7); Neutrophils Percent Auto 84.5 % (45.5-73.1); Platelet Count Result 199 k/mm3 (150-375); Red Blood Count 3.13 M/mm3 (4.2-5.4); Red Cell Distribution Width 18.6 % (11.5-14.5); White Blood Count 7.3 K/mm3 (4.5-10.0)
[2024-01-30 12:38] LABS: INR 1.7; Partial Thromboplastin Time 32.8 Seconds (22.3-36.8); Prothrombin Time 20.4 Seconds (11.1-14.7)
[2024-01-30 12:40] LABS: Alanine Aminotransferase 27 U/L (6-35); Albumin Level 3.1 g/dL (3.5-5.1); Alkaline Phosphatase 56 U/L (38-126); Anion Gap 9 mmol/L (4-12); Aspartate Amino Transferase 31 U/L (14-36); Bilirubin,Total 0.8 mg/dL (0.2-1.3); Blood Urea Nitrogen 44 mg/dL (7-17); Calcium 8.3 mg/dL (8.4-10.2); Carbon Dioxide 24 mmol/L (22-30); Chloride 105 mmol/L (98-107); Estimated Glomerular Filt Rate 54; Glucose 202 mg/dL (65-110); Potassium 3.6 mmol/L (3.4-5.0); Sodium 138 mmol/L (137-145)
[2024-01-30 12:55] LABS: Troponin I 0.043 ng/mL (0.000-0.034)
[2024-01-30 13:02] LABS: NT Pro B Type Natriuretic Pept > 30000 pg/mL (19.9-100)
[2024-01-30 13:18] LABS: Add Urine Microscopic? YES; Appearance Urine Turbid (Clear); Bacteria Urine None Seen /hpf; Bilirubin Urine Negative (Negative); Blood Urine 3+ (Negative); Color Urine Yellow (Yellow); Glucose Urine UA 3+ mg/dL (Negative); Ketones Urine Negative (Negative); Leukocyte Esterase Ur 3+ LEU/UL (Negative); Need Manual Microscopic Reviewed; Nitrate Urine Negative (Negative); Non Pathogenic Casts 0-2; Protein Urine 3+ mg/dL (Negative); Specific Grav Ur 1.016 (1.001-1.035); Squamous Epithelial Cell Urine None Seen /hpf (Few); WBC Urine >100 /hpf (0-3); pH Urine 5.5 (5.0-9.0)
[2024-01-30] MEDS: FUROSEMIDE INJ 40 MG/4 ML VIAL IV PUSH ×2 (13:53→21:42)
--- NOTE | 2024-01-30 16:16 | ED_ITS ---
HPI - General Adult General Chief complaint: Altered Mental Status Stated complaint: ams Time Seen by Provider: 01/30/24 12:02 History of Present Illness HPI narrative: patient is a 69-year-old woman who presents ER from her senior care with altered level of consciousness. Patient has history of dementia /cognitive him deficit that is her orient x2 at baseline. Patient currently oriented to self and place. She has no complaints of pain. She does have history of heart failure. She has bilateral AKAs. Patient has a firm area in midline abdomen that may represent hernia. Patient has been having diarrhea in the ER. Related Data Home Medications Medication Instructions Recorded Confirmed acetaminophen 325 mg capsule 650 mg PO Q6H PRN Pain (Scale 12/05/21 01/30/24 (Tylenol) Score 1-3) atorvastatin 40 mg tablet 40 mg PO HS 12/05/21 01/30/24 bisacodyl 10 mg rectal suppository 10 mg RECTAL PRN PRN Constipation 12/05/21 01/30/24 insulin aspart U-100 100 unit/mL See Rx Instructions .Route .COMPLEX 12/05/21 01/30/24 subcutaneous solution (Novolog U-100 Insulin aspart) levothyroxine 100 mcg tablet 100 mcg PO DAILY 12/05/21 01/30/24 ondansetron HCl 4 mg tablet 4 mg PO Q8H PRN Nausea 12/05/21 01/30/24 gabapentin 300 mg capsule 300 mg PO TID 05/16/22 01/30/24 omeprazole 20 mg capsule,delayed 20 mg PO DAILY 05/16/22 01/30/24 release potassium chloride 10 mEq 10 meq PO DAILY 05/16/22 01/30/24 capsule,extended release Lantus U-100 Insulin 8 unit subcut QHS 01/10/24 01/30/24 furosemide 40 mg tablet (Lasix) 40 mg PO DAILY 01/10/24 01/30/24 carvedilol 6.25 mg tablet (Coreg) 6.25 mg PO BID 01/30/24 01/30/24 ferrous sulfate 325 mg (65 mg 325 mg PO DAILY PRN anemia 01/30/24 01/30/24 iron) tablet magnesium citrate (Citroma oral 296 ml PO DAILY PRN Constipation 01/30/24 01/30/24 solution) magnesium hydroxide 400 mg/5 mL 30 ml PO HS PRN CONSTIPATION 01/30/24 01/30/24 oral suspension (Milk of Magnesia) naloxone 4 mg/actuation nasal spray 1 spray intranasal Q2M PRN OPIOD 01/30/24 01/30/24 OVERDOSE sacubitril 24 mg-valsartan 26 mg 1 tablet PO Q12H 01/30/24 01/30/24 tablet (Entresto) sodium phosphates 19 gram-7 118 ml RECTAL PRN PRN constipation 01/30/24 01/30/24 gram/118 mL enema (Fleet Enema) tramadol 50 mg tablet 50 mg PO Q8H PRN pain 01/30/24 01/30/24 Allergies Allergy/AdvReac Type Severity Reaction Status Date / Time codeine Allergy Unknown Verified 01/30/24 15:44 Review of Systems Review of Systems: ROS unobtainable: Yes unobtainable due to mental status PMFSH Past Medical History Medical History Combined systolic and diastolic congestive heart failure echocardiogram 12/06/2021: Severely reduced right ventricular systolic func tion with EF of 20-25%, moderate left ventricular chamber enlargement, moderate left atrial enlargement, grade 2 diastolic dysfunction Dementia Diabetes GERD (gastroesophageal reflux disease) HTN (hypertension) Hyperlipidemia Peripheral vascular disease Psychiatric disorder Thyroid cancer Surgical History Surgical History History of lumpectomy of left breast History of right breast implant Patient reports that it was radiation implant History of thyroid surgery S/P AKA (above knee amputation) bilateral Family History Family History Mother Family history of type 2 diabetes mellitus, Onset Age: 55 Father Acute myocardial infarction, Onset Age: 58 Social History Social History Social History: The patient has advanced directive paperwork from the senior care that states she is a DNR. However the patient's family members that were in the ER stated that they wanted the patient to be a full code. The patient herself wishes to be a DNR/DNI. Patient is mildly confused but is seemed to be having capacity and understands consequences. Smoking status: Unknown if ever smoked Second hand tobacco smoke exposure: No Alcohol intake: never Substance use: never Substance use type: does not use Do You Feel Safe in your Home?: Yes Lack of Transportation: No Lack of Food: Never True Current Housing: I Have Housing Concerned About Future Housing: No Difficulty Paying Gas/Electric Bills: No Difficulty Paying for Meds: No Currently Unemployed: No Education: Decline to Answer Difficulty w/ Childcare or Family Care: No Spiritual care concerns: No Exam Narrative: GENERAL: Chronically ill-appearing, well-nourished, and in no acute distress. HEAD: Normocephalic, atraumatic. EYES: PERRL and EOMI. ENT: Mucous membranes moist. NECK: Supple. CHEST: bibasilar crackles. No respiratory distress. HEART: Regular rate and rhythm. Normal peripheral pulses. ABDOMEN: Soft, nontender, nondistended, firm mass midline supraubilical region nonreducible. EXTREMITIES: bilateral AKA's. SKIN: Warm, dry, no rash. NEURO: Alert and oriented x2. PSYCH: Normal mood and affect. Course Course Emergency Course: imaging and labs reviewed. Ceftriaxone and Flagyl started for UTI and colitis/ proctitis. Possible urinary fistula with chronic osteo but does not seem to be the acute issue at hand. Patient also given Lasix for diuresis for heart failure exacerbation. Patient accepted by the hospitalist service. Troponin elevated but likely strain from volume overload. Vital Signs Vital signs: Vital Signs Temperature 98.1 F 01/30/24 11:19 Pulse Rate 75 01/30/24 11:19 Respiratory Rate 17 01/30/24 11:19 Blood Pressure 113/60 01/30/24 11:19 Pulse Oximetry 94 01/30/24 11:19 Oxygen Delivery Room Air 01/30/24 11:19 Temperature 97.6 F 01/30/24 19:52 Pulse Rate 66 01/30/24 19:52 Respiratory Rate 20 01/30/24 19:52 Blood Pressure 111/40 L 01/30/24 19:52 Pulse Oximetry 96 01/30/24 19:52 Oxygen Delivery Room Air 01/30/24 11:19 Medical Decision Making Vital Signs Vital Signs: Vital Signs Temperature 98.1 F 01/30/24 11:19 Pulse Rate 75 01/30/24 11:19 Respiratory Rate 17 01/30/24 11:19 Blood Pressure 113/60 01/30/24 11:19 Pulse Oximetry 94 01/30/24 11:19 Oxygen Delivery Room Air 01/30/24 11:19 Temperature 97.6 F 01/30/24 19:52 Pulse Rate 66 01/30/24 19:52 Respiratory Rate 20 01/30/24 19:52 Blood Pressure 111/40 L 01/30/24 19:52 Pulse Oximetry 96 01/30/24 19:52 Oxygen Delivery Room Air 01/30/24 11:19 Lab Data 01/30/24 12:03 01/30/24 12:03 Labs: Lab Results 01/30/24 01/30/24 Range/Units 12:03 12:43 WBC 7.3 (4.5-10.0) K/mm3 RBC 3.13 L (4.2-5.4) M/mm3 Hgb 9.7 L (12.0-15.0) g/dL Hct 30.9 L (37.0-47.0) % MCV 98.7 (80-100) fl MCH 31.0 (26-34) pg MCHC 31.4 L (32-36) g/dl RDW 18.6 H (11.5-14.5) % Plt Count 199 (150-375) k/mm3 MPV 10.3 (7.4-10.4) fl Immature Gran % (Auto) 0.4 (0-0.5) % Neut % (Auto) 84.5 H (45.5-73.1) % Lymph % (Auto) 9.5 L (18.3-44.2) % Cassia % (Auto) 5.0 (2.6-8.5) % Eos % (Auto) 0.1 (0-4.4) % Baso % (Auto) 0.5 (0.2-1.2) % Lymph # (Auto) 0.70 L (0.9-3.2) K/mm3 Cassia # (Auto) 0.4 (0.1-0.6) K/mm3 Eos # (Auto) 0.0 (0-0.3) K/mm3 Baso # (Auto) 0.0 (0.0-0.1) K/mm3 Abs Immat Gran (auto) 0.03 (0.00-0.031) K/mm3 Absolute Neuts (auto) 6.2 (1.3-6.7) K/mm3 Absolute Nucleated RBC 0.000 (0.0-0.012) K/mm3 Nucleated RBC % 0.0 (0.0-0.2) % PT 20.4 H (11.1-14.7) Seconds INR 1.7 APTT 32.8 (22.3-36.8) Seconds Sodium 138 (137-145) mmol/L Potassium 3.6 (3.4-5.0) mmol/L Chloride 105 (98-107) mmol/L Carbon Dioxide 24 (22-30) mmol/L Anion Gap 9 (4-12) mmol/L BUN 44 H D (7-17) mg/dL Creatinine 1.20 H (0.7-1.0) mg/dL Estim Creat Clear Calc Not Reportable Estimated GFR 54 L (59 - ) Glucose 202 H (65-110) mg/dL Calcium 8.3 L (8.4-10.2) mg/dL Total Bilirubin 0.8 (0.2-1.3) mg/dL AST 31 (14-36) U/L ALT 27 (6-35) U/L Alkaline Phosphatase 56 (38-126) U/L Troponin I 0.043 H* (0.000-0.034) ng/mL NT-Pro-B Natriuret Pep > 20911 H (19.9-100) pg/mL Total Protein 7.0 (6.3-8.2) g/dL Albumin 3.1 L (3.5-5.1) g/dL Urine Color Yellow (Yellow) Urine Appearance Turbid H (Clear) Urine pH 5.5 (5.0-9.0) Ur Specific [place] 1.016 (1.001-1.035) Urine Protein 3+ H (Negative) mg/dL Urine Glucose (UA) 3+ H (Negative) mg/dL Urine Ketones Negative (Negative) mg/dL Ur Blood (Man) 3+ H (Negative) Urine Nitrate Negative (Negative) Urine Bilirubin Negative (Negative) Urine Urobilinogen 1.0 (<2.0) mg/dL Add Ur Microanalysis Reviewed Leukocyte Esterase Rfl 3+ H (Negative) PABLO/UL Urine RBC 3-5 H (0-2) /hpf Urine WBC >100 H (0-3) /hpf Ur Squamous Epith Cells None seen (Few) /hpf Urine Bacteria None seen /hpf Urine Casts 0-2 Imaging Data Radiologist's impression: ITS Impressions Chest X-Ray 01/30/24 13:15 IMPRESSION: Cardiomegaly with cardiac decompensation and pulmonary edema. Superimposed pneumonitis is not excluded. Left lower lobe atelectasis versus pneumonia. Possibility of effusion excluded. Abdomen/Pelvis CT 01/30/24 14:48 IMPRESSION: 1. Rectal tube in expected position with mild rectal wall thickening and perirectal inflammatory stranding suggestive of mild proctitis. 2. Likely cystitis with ascending left urinary tract infection. 3. Soft tissue gas at the right breast which appears intravascular potentially intravenous related to IV catheter placement. Correlate with clinical history. 4. Recommend with chronic small pericardial effusion. 5. Likely proctitis which could related to stercoral colitis or the presence of a rectal tube. 6. Widened pubic symphysis with irregular cortical contours with gas tracking from the pubic symphysis to the urethra which is suspicious for fistulous communication and secondary chronic osteomyelitis. Chest CT 01/30/24 15:44 IMPRESSION: 1. Venous gas in anterior chest wall, likely from IV injection, likely not clinically significant. 2. Mild pulmonary edema. 3. Small pericardial effusion. 4. Cardiomegaly. 5. 6.7 cm fluid collection in right breast that is chronic, likely a seroma. ECG Data EKG #1: ECG completion date: 01/30/24 ECG completion time: 12:11 EKG Interpretation: normal rate (71), sinus rhythm, normal QRS, normal QT and left axis Discharge Plan Discharge Clinical Impression: CHF exacerbation, Acute UTI, Colitis Patient Disposition: Still a Patient Condition: Stable
[2024-01-30] MEDS: metroNIDAZOLE 500 MG/ISO 100ML 500 MG/100 ML BAG 100 MG IVPB ×2 (16:25→23:33)
--- NOTE | 2024-01-30 18:04 | P.HP_ITS ---
H&P: HPI History of Present Illness Date/Time: 01/30/24 18:04 Chief Complaint: altered level of consciousness at senior care Narrative: This is a 69-year-old female patient from a local senior care sent to the e mergency department for altered level of consciousness. Patient has a history of dementia appears to be oriented to baseline person and place. Patient with no current complaints. Workup in the emergency department concerning for colitis with diffuse diarrhea requiring fecal management system, UTI and CHF exacerbation. Kaplan catheter was placed in the emergency department and diuresis initiated with IV Lasix. Imaging in the emergency department shows the following: Chest X-Ray 01/30/24 13:15 IMPRESSION: 1. Cardiomegaly with cardiac decompensation and pulmonary edema. Superimposed pneumonitis is not excluded. 2. Left lower lobe atelectasis versus pneumonia. Possibility of effusion excluded. Abdomen/Pelvis CT 01/30/24 14:48 IMPRESSION: 1. Rectal tube in expected position with mild rectal wall thickening and perirectal inflammatory stranding suggestive of mild proctitis. 2. Likely cystitis with ascending left urinary tract infection. 3. Soft tissue gas at the right breast which appears intravascular potentially intravenous related to IV catheter placement. Correlate with clinical history. 4. Recommend with chronic small pericardial effusion. 5. Likely proctitis which could related to stercoral colitis or the presence of a rectal tube. 6. Widened pubic symphysis with irregular cortical contours with gas tracking from the pubic symphysis to the urethra which is suspicious for fistulous communication and secondary chronic osteomyelitis. 7. Postoperative change of prior ventral hernia mesh repair. There is a partially rim calcified loculated subcutaneous fluid collection superficial to the mesh repair which measures 14.7 cm craniocaudally and 10.1 x 7.2 cm maximal transaxial dimensions. Chest CT 01/30/24 15:44 IMPRESSION: 1. Venous gas in anterior chest wall, likely from IV injection, likely not clinically significant. 2. Mild pulmonary edema. 3. Small pericardial effusion. 4. Cardiomegaly. 5. 6.7 cm fluid collection in right breast that is chronic, likely a seroma. Labs in the emergency department showed: proBNP greater than 30,000, troponin mildly elevated at 0.043 likely due to fluid overload rather than acute coronary syndrome, mild ABDIRASHID and chronic anemia. Patient is on once daily iron supplement. Iron labs show low iron count 25 low TIBC at 189 and low saturation at 13%. Vitamin B12 is greater than 1000 and folate is 8.1. Increased oral iron supplement to twice daily based on these labs. Review of Systems Review of Systems: Patient denies pain or difficulty breathing ROS unobtainable: Yes unobtainable due to mental status PMFSH Past Medical History Medical History Anemia Combined systolic and diastolic congestive heart failure echocardiogram 12/06/2021: Severely reduced right ventricular systolic function with EF of 20-25%, moderate left ventricular chamber enlargement, moderate left atrial enlargement, grade 2 diastolic dysfunction Dementia Dyslipidemia Encephalopathy acute GERD (gastroesophageal reflux disease) HTN (hypertension) Hyperlipidemia Neuropathy Non-STEMI (non-ST elevated myocardial infarction) Peripheral vascular disease Psychiatric disorder Thyroid cancer Type 2 diabetes mellitus with hyperglycemia Surgical History Surgical History (Updated 01/31/24 @ 01:21 by Serg Stringer APRN) History of lumpectomy of left breast History of right breast implant Patient reports that it was radiation implant History of thyroid surgery S/P AKA (above knee amputation) bilateral Family History Family History Mother Family history of type 2 diabetes mellitus, Onset Age: 55 Father Acute myocardial infarction, Onset Age: 58 Social History Social History Social History: The patient has advanced directive paperwork from the senior care that states she is a DNR. However the patient's family members that were in the ER stated that they wanted the patient to be a full code. The patient herself wishes to be a DNR/DNI. Patient is mildly confused but is seemed to be having capacity a nd understands consequences. Smoking status: Unknown if ever smoked Second hand tobacco smoke exposure: No Alcohol intake: never Substance use: never Substance use type: does not use Do You Feel Safe in your Home?: Yes Lack of Transportation: No Lack of Food: Never True Current Housing: I Have Housing Concerned About Future Housing: No Difficulty Paying Gas/Electric Bills: No Difficulty Paying for Meds: No Currently Unemployed: No Education: Decline to Answer Difficulty w/ Childcare or Family Care: No Spiritual care concerns: No Meds Home Medications and Allergies Home Medications Medication Instructions Recorded Confirmed Type acetaminophen 325 mg capsule 650 mg PO Q6H PRN Pain (Scale 12/05/21 01/30/24 History (Tylenol) Score 1-3) atorvastatin 40 mg tablet 40 mg PO HS 12/05/21 01/30/24 History bisacodyl 10 mg rectal suppository 10 mg RECTAL PRN PRN Constipation 12/05/21 01/30/24 History insulin aspart U-100 100 unit/mL See Rx Instructions .Route .COMPLEX 12/05/21 01/30/24 History subcutaneous solution (Novolog U-100 Insulin aspart) levothyroxine 100 mcg tablet 100 mcg PO DAILY 12/05/21 01/30/24 History ondansetron HCl 4 mg tablet 4 mg PO Q8H PRN Nausea 12/05/21 01/30/24 History empagliflozin 10 mg tablet 10 mg PO DAILY 1 month #30 tabs 12/08/21 01/30/24 Rx (Jardiance) gabapentin 300 mg capsule 300 mg PO TID 05/16/22 01/30/24 History omeprazole 20 mg capsule,delayed 20 mg PO DAILY 05/16/22 01/30/24 History release potassium chloride 10 mEq 10 meq PO DAILY 05/16/22 01/30/24 History capsule,extended release Lantus U-100 Insulin 8 unit subcut QHS 01/10/24 01/30/24 History furosemide 40 mg tablet (Lasix) 40 mg PO DAILY 01/10/24 01/30/24 History carvedilol 6.25 mg tablet (Coreg) 6.25 mg PO BID 01/30/24 01/30/24 History ferrous sulfate 325 mg (65 mg 325 mg PO DAILY PRN anemia 01/30/24 01/30/24 History iron) tablet magnesium citrate (Citroma oral 296 ml PO DAILY PRN Constipation 01/30/24 01/30/24 History solution) magnesium hydroxide 400 mg/5 mL 30 ml PO HS PRN CONSTIPATION 01/30/24 01/30/24 History oral suspension (Milk of Magnesia) naloxone 4 mg/actuation nasal spray 1 spray intranasal Q2M PRN OPIOD 01/30/24 01/30/24 History OVERDOSE sacubitril 24 mg-valsartan 26 mg 1 tablet PO Q12H 01/30/24 01/30/24 History tablet (Entresto) sodium phosphates 19 gram-7 118 ml RECTAL PRN PRN constipation 01/30/24 01/30/24 History gram/118 mL enema (Fleet Enema) tramadol 50 mg tablet 50 mg PO Q8H PRN pain 01/30/24 01/30/24 History Allergies Allergy/AdvReac Type Severity Reaction Status Date / Time codeine Allergy Unknown Verified 01/30/24 15:44 Vital Signs Vital Signs - 24 hr 01/30/24 11:19 01/30/24 11:30 01/30/24 11:31 Temperature 36.7 C Pulse Rate 75 73 73 Respiratory Rate 17 Blood Pressure 113/60 109/66 Pulse Oximetry 94 92 92 Oxygen Delivery Room Air 01/30/24 11:59 01/30/24 12:01 01/30/24 12:15 Temperature Pulse Rate 71 72 72 Respiratory Rate Blood Pressure Pulse Oximetry 100 94 Oxygen Delivery 01/30/24 12:30 01/30/24 12:31 01/30/24 13:12 Temperature Pulse Rate 74 74 67 Respiratory Rate 22 H Blood Pressure 114/54 L 92/56 L Pulse Oximetry 98 Oxygen Delivery 01/30/24 13:56 01/30/24 14:07 01/30/24 14:45 Temperature Pulse Rate 67 68 66 Respiratory Rate 14 Blood Pressure 95/40 L 123/66 107/64 Pulse Oximetry 98 100 100 Oxygen Delivery 01/30/24 16:30 Temperature Pulse Rate 66 Respiratory Rate 20 Blood Pressure 100/52 L Pulse Oximetry 97 Oxygen Delivery Exam Narrative: GENERAL: Chronically ill-appearing, in no acute distress. HEAD: Normocephalic, atraumatic. EYES: PERRL and EOMI. CHEST: Bibasilar crackles. No respiratory distress. HEART: Regular rate and rhythm. Normal peripheral pulses. ABDOMEN: nontender, nondistended, firm mass midline supraumbilical region nonreducible. EXTREMITIES: bilateral lower extremity AKA's. SKIN: Warm, dry, no rash. NEURO: Alert and oriented x2. PSYCH: Normal mood and affect. H&P: Results Labs Labs: Short CBC 01/30/24 Range/Units 12:03 WBC 7.3 (4.5-10.0) K/mm3 Hgb 9.7 L (12.0-15.0) g/dL Hct 30.9 L (37.0-47.0) % Plt Count 199 (150-375) k/mm3 BMP 01/30/24 12:03 Sodium 138 Potassium 3.6 Chloride 105 Carbon Dioxide 24 BUN 44 H D Creatinine 1.20 H Glucose 202 H Calcium 8.3 L Cardiac Enzymes 01/30/24 Range/Units 12:03 Troponin I 0.043 H* (0.000-0.034) ng/mL Liver Function 01/30/24 Range/Units 12:03 Total Bilirubin 0.8 (0.2-1.3) mg/dL AST 31 (14-36) U/L ALT 27 (6-35) U/L Alkaline Phosphatase 56 (38-126) U/L Albumin 3.1 L (3.5-5.1) g/dL Urine 01/30/24 Range/Units 12:43 Urine Color Yellow (Yellow) Urine Appearance Turbid H (Clear) Urine pH 5.5 (5.0-9.0) Ur Specific [place] 1.016 (1.001-1.035) Urine Protein 3+ H (Negative) mg/dL Urine Glucose (UA) 3+ H (Negative) mg/dL Pulse Oximetry SpO2 results: 92-100% on room air Attestation: I personally reviewed and interpreted this pulse oximetry as follo ws: Interpretation: no need for supplemental oxygenation at this time ECG Attestation: I personally reviewed and interpreted this ECG as follows: ECG completion date: 01/30/24 ECG completion time: 12:11 Prior ECG tracings: not available for review Interpretation: sinus rhythm first-degree AV block rate of 71 DE interval 244 QRS duration 96 QTC 460 QRS axis -50? left axis deviation lateral lead T-wave abnormality no STEMI Imaging CT scan - chest: Radiologist's impression: EXAMINATION:CT diagnostic chest wo con DATE: 01/30/2024 15:43 INDICATION: Subcutaneous gas in right breast. TECHNIQUE: Computed tomography (CT) of the chest was performed without intravenous contrast. Automated exposure control and iterative reconstruction technique were employed. The dose-length product (DLP) was 500.50 mGy-cm. COMPARISON: CT abdomen and pelvis 01/30/2024, 05/16/2022 FINDINGS: The lungs demonstrate mild atelectasis. There is smooth septal thickening bilaterally, consistent mild pulmonary edema. There are trace pleural effusions. Cardiomegaly is noted. There are coronary artery calcifications. The re are calcifications of the aortic valve. There is a small pericardial effusion. There is gas in veins in the anterior chest wall and in the right atrium of the heart and main pulmonary artery, likely from IV injection. There is a 6.7 x 5.8 cm thick-walled fluid collection with wall calcifications in right breast, likely a seroma. Body wall edema is distended. IMPRESSION: 1. Venous gas in anterior chest wall, likely from IV injection, likely not clinically significant. 2. Mild pulmonary edema. 3. Small pericardial effusion. 4. Cardiomegaly. 5. 6.7 cm fluid collection in right breast that is chronic, likely a seroma. Reviewed, dictated and finalized at location A. E SET UP PERSON CT scan - abdomen: Radiologist's impression: EXAMINATION: CT abdomen pelvis w con DATE: 01/30/2024 14:39 INDICATION: Hernia. Diarrhea. TECHNIQUE: Computed tomography (CT) of the abdomen and pelvis was performed with 100 mL Omnipaque-350 intravenous contrast. Automated exposure control and iterative reconstruction technique were employed. The dose-length product was 1283.89 mGy-cm. COMPARISON: 05/16/2022 FINDINGS: Cardiomegaly and unchanged small pericardial effusion. Mild bibasilar atelectasis. Partially visualized right breast implant with peripheral calcifications. There is some soft tissue gas in the right breast which appears to track along the linear vessels, likely intravenous. Multiple hepatic and splenic calcifications consistent with old granulomatous disease. Gallbladder is decompressed. Pancreas and bilateral adrenal glands are normal. There is mild bilateral renal cortical atrophy. Gas and a Kaplan catheter within the decompressed bladder. There is wall thickening of the bladder and mild stranding in the immediately surrounding fat suspicious for cystitis which could be either acute or chronic. There is gas within the left ureter, renal pelvis and calyces with peripheral enhancing urothelium suspicious for ascending urinary tract infection. There are some gas beginning in the urethra alongside the Kaplan catheter which extends anteriorly into the region of the widened pubic symphysis suggesting fistulous communication to the urethra. Irregular contour to the pubic body with suggestion of chronic corticated erosions which could be related to chronic osteomyelitis. Anteverted uterus and right adnexa are unremarkable. 2.0 cm left adnexal cyst. There is some bowel wall thickening at the rectum char g with a rectal tube. Bowels including the appendix are otherwise normal. Postoperative change of prior ventral hernia mesh repair. There is a partially rim calcified loculated subcutaneous fluid collection superficial to the mesh repair which measures 14.7 cm craniocaudally and 10.1 x 7.2 cm maximal transaxial dimensions. No free intraperitoneal gas or fluid. No pathologically enlarged abdominal or pelvic lymphadenopathy. Extensive body wall edema. Mild degenerative skeletal changes in the visualized spine and pelvis. IMPRESSION: 1. Rectal tube in expected position with mild rectal wall thickening and perirectal inflammatory stranding suggestive of mild proctitis. 2. Likely cystitis with ascending left urinary tract infection. 3. Soft tissue gas at the right breast which appears intravascular potentially intravenous related to IV catheter placement. Correlate with clinical history. 4. Recommend with chronic small pericardial effusion. 5. Likely proctitis which could related to stercoral colitis or the presence of a rectal tube. 6. Widened pubic symphysis with irregular cortical contours with gas tracking from the pubic symphysis to the urethra which is suspicious for fistulous communication and secondary chronic osteomyelitis. 7. Postoperative change of prior ventral hernia mesh repair. There is a partially rim calcified loculated subcutaneous fluid collection superficial to the mesh repair which measures 14.7 cm craniocaudally and 10.1 x 7.2 cm maximal transaxial dimensions. Reviewed, dictated and finalized at location B. E SET UP PERSON Assessment and Plan Assessment and plan (1) Combined systolic and diastolic congestive heart failure: Qualifiers: Heart failure chronicity: acute on chronic Qualified Code(s): I50.43 - Acute on chronic combined systolic (congestive) and diastolic (congestive) heart failure Code(s): I50.40 - Unspecified combined systolic (congestive) and diastolic (congestive) heart failure Status: Acute Assessment and Plan: -Pulmonary edema on imaging -Bibasilar crackles -ER started Kaplan cath and IV Lasix 40 mg BID -Prior 2021 Echo with 20-25% EF and Grade 2 diastolic dysfunction -Ordered repeat Echo -Continue home medications including Jardiance, Entresto and Coreg -Mildly elevated troponin likely from fluid overload rather than acute coronary syndrome (2) Acute UTI: Code(s): N39.0 - Urinary tract infection, site not specified Status: Acute Assessment and Plan: -UA with 3+ leukocyte esterase, greater than 100 WBC -UA with 3-5 RBC but 3+ blood, ordered CK add on -IV Rocephin started in ER -Prior positive urine culture was Proteus mirabilis resistant to Levaquin, Cipro and cefazolin (3) Colitis: Code(s): K52.9 - Noninfective gastroenteritis and colitis, unspecified Status: Acute Assessment and Plan: -Imaging findings of colitis/proctitis -Profuse diarrhea in ER prompting insertion of fecal management system -C-Diff ordered, no result back yet -IV Rocephin for UTI, IV Flagyl added for further coverage of GI pathogens (4) Abnormal CT of the abdomen: Code(s): R93.5 - Abnormal findings on diagnostic imaging of other abdominal regions, including retroperitoneum Status: Acute Assessment and Plan: -Several findings of unknown significance on CT scans including subcutaneous fluid collection superficial to hernia mesh repair measureing 14.7 cm long and 10.2 x 7.2 cm transxial. -Will place non-emergent consult to general surgery for evaluation of this and fluid collection in right breast -Soft tissue gas right breast in vascular space, further detailed in CT chest -Widened pubic symphysis with irregular cortical contours with gas tracking from the pubic symphysis to the urethra which is suspicious for fistulous communication and secondary chronic osteomyelitis. -MRI of pelvis ordered (5) HTN (hypertension): Qualifiers: Hypertension type: unspecified Qualified Code(s): I10 - Essential (primary) hypertension Code(s): I10 - Essential (primary) hypertension Status: Chronic Assessment and Plan: -Continue home medications for CHF including Coreg and Entresto (6) Acute kidney injury: Code(s): N17.9 - Acute kidney failure, unspecified Status: Acute Assessment and Plan: -Labs show Cr 1.2, BUN 44 and eGFR 54, with usual baseline Cr 0.7-0.9 and eGFR >60 -Likely to worsen with diuresis for fluid overload in CHF exacerbation -Minimize nephrotoxic choices when possible (7) Type 2 diabetes mellitus with hyperglycemia: Code(s): E11.65 - Type 2 diabetes mellitus with hyperglycemia Status: Acute Assessment and Plan: -Recent A1c 7.5 -Continue home medications along with diabetic low sodium diet -Hypoglycemia protocol also ordered (8) S/P AKA (above knee amputation) bilateral: Code(s): Z89.611 - Acquired absence of right leg above knee; Z89.612 - Acquired absence of left leg above knee Status: Acute Assessment and Plan: -Due to DM Quality If No VTE Prophylaxis Answer both mechanical and pharmacologic: Reason no mechanical VTE proph: barbie lower ext amputee Reason no pharmacologic proph: medical contraindication active bleeding/bleeding risk Hospitalist MIPS Advance Care Plan I have confirmed that the patient's Advanced Care Plan is present, code status is documented, or surrogate decision maker is listed in patient medical record.: Yes Medication Reconciliation I have utilized all available resources to obtain, update and review the patients current medications (includes all prescriptions, OTC, herbals, cannabis, and nutritional supplements).: Yes
--- NOTE | 2024-01-30 18:31 | ADMGEN ---
This patient, Iris Pascual, was admitted to IMU Room 214 @ 1745. Patient oriented to hospital policies and general routines including ID bracelet, bed and alarms, visiting hours, pain management, procedures, bathroom and other care routines, personal items, smoking policy, room service/diet, and visiting hours. Information on how to activate the Rapid Response Team has been discussed. Patient are encouraged to report perceived risks to care and to ask questions if they do not understand what they are told or what they should do.
--- NOTE | 2024-01-30 20:07 | PC.NURSE ---
Update given to Nurse at [facility].
[2024-01-30 20:45] LABS: Glucose Point of Care 104 mg/dl (65-105)
[2024-01-30 21:41] LABS: Iron 25 ug/dL (37-170)
[2024-01-30] MEDS: SACUBITRIL/VALSARTAN 24-26 MG TABLET 1 TAB PO (21:42)
[2024-01-30] MEDS: carvediloL 6.25 MG TABLET PO (21:42)
[2024-01-30] MEDS: ATORVASTATIN 40 MG TABLET PO (21:42)
[2024-01-30] MEDS: GABAPENTIN 300 MG CAPSULE PO (21:42)
[2024-01-30] MEDS: INSULIN GLARGINE (*BKC) 100 UNITS/ML 8 UNITS SUB-Q (21:47)
[2024-01-30 21:50] LABS: Percent Iron Saturation 13 % (20-50)
[2024-01-30 21:58] LABS: Glucose Point of Care 76 mg/dl (65-105)
[2024-01-30 23:29] LABS: Folic Acid 8.1 ng/mL (2.76->20); Vitamin B12 > 1000.0 pg/mL (239-931)
[2024-01-31] VITALS (16 sets, daily range): BP systolic 95–141; BP diastolic 30–80; PULSE 57–75; RESP 16–20; TEMP 36.4–37; O2SAT 98–100
--- NOTE | 2024-01-31 | ECHO_ITS ---
Patient Info Name: Iris Pascual Age: 69 years : 1955 Gender: Female Ht: 63 in Wt: 130 lbs BSA: 1.63 m2 HR: 67 bpm BP: 121 / 40 mmHg Heart Rhythm: Sinus Rhythm Technical Quality: Good Exam Date: 01/31/2024 10:48 AM Exam Location: Echo Lab Patient Status: Inpatient Admit Date: 01/31/2024 Staff Ordering Physician: Serg Stringer APRN Kinesiology Professor: Shawanda Avery RDCS Attending Provider: Ismael Taylor MD Referring Physician: Myke TRAVIS; Exam Type: CA echo dop color flow w con Study Info Indications - decompansated CHF Complete two-dimensional, color flow and Doppler transthoracic echocardiogram is performed with contrast to opacify the left ventricle and to improve the deliniation of the left ventricle endocardial borders. Summary 1. Mild LV enlargement, borderline LVH. Severe global LV systolic dysfunction, ejection fraction about 25-30%. Grade 3/4 diastolic dysfunction with elevated left atrial pressure. Mild RV enlargement with hypokinesis. Mild left enlargement. Mild mitral valve thickening, mild mitral regurgitation. Aortic valve not well visualized, appears mildly calcified. Mild aortic stenosis, mild aortic regurgitation. Mild TR, mild pulmonary hypertension, RVSP 41 mmHg. Mild pulmonic regurgitation. Mild to moderate localized pericardial effusion, predominantly along basal-mid inferolateral zamora of LV. No echo evidence of tamponade. Clinical correlation. Left Ventricle Left ventricular chamber dimension is mildly enlarged. Left ventricular systolic function is severely reduced, estimated at 25-30%. There is no increased left ventricular wall thickness. The left ventricular diastolic function is grade III diastolic dysfunction. E/e' 36.17 is elevated. Left Atria Left atrial chamber dimension is mildly enlarged. Right Atria Right atrial chamber dimension is normal. Aortic Valve The aortic valve is not well visualized. There is mild aortic valve stenosis with a peak velocity of 141.57 cm/s, mean gradient of 5 mmHg, and aortic valve area of 1.44 cm2. There is mild aortic valve regurgitation. There is mild aortic valve calcification. Pulmonic Valve The pulmonic valve is normal. There is mild pulmonic regurgitation. Mitral Valve The mitral valve has thickened leaflets. There is trace mitral valve regurgitation. Tricuspid Valve The tricuspid valve leaflets are normal. There is mild tricuspid valve regurgitation. Mild pulmonary hypertension, estimated pulmonary arterial systolic pressure is 41 mmHg. Pericardium/Pleural There is small pericardial effusion. Aorta The aortic root size at the sinus of Valsalva is normal. Left Ventricular Outflow Tract Name Value Normal LVOT 2D LVOT Diameter 1.89 cm LVOT Doppler LVOT Peak Gradient 2 mmHg LVOT Mean Gradient 1 mmHg LVOT VTI 14.47 cm LVOT VTI/AV VTI Ratio 0.51 LVOT Stroke Volume 40.64 ml LVOT CO 2.45 l/min LVOT CI 1.50 L/min/m2 Pulmonic Valve Name Value Normal PV Doppler PV Peak Gradient 2 mmHg Mitral Valve Name Value Normal MV Doppler MV Decel [place] 605.17 cm/s2 MV PHT 0 s MV Area (PHT) 4.04 cm2 4.00-5.00 MV Regurgitation Doppler MR Peak Gradient 85 mmHg MV Diastolic Function MV E Peak Velocity 113.52 cm/s MV A Peak Velocity 28.48 cm/s MV E/A 3.99 MV Decel Time 0 s MV Annular TDI MV E/e' (Septal) 50.30 <=8.00 MV E/e' (Lateral) 22.04 <=8.00 MV E/e' (Average) 36.17 Tricuspid Valve Name Value Normal TV Regurgitation Doppler TR Peak Velocity 277.94 cm/s TR Peak Gradient 27 mmHg Estimated PAP/RSVP RA Pressure 10 mmHg <=5 PA Systolic Pressure 41 mmHg <36 RV Systolic Pressure 41 mmHg <36 Aortic Valve Name Value Normal AV Doppler AV Peak Velocity 141.57 cm/s AV Peak Gradient 8 mmHg AV Mean Gradient 5 mmHg AV VTI 28.16 cm AV Area (Cont Eq VTI) 1.44 cm2 >=3.00 AV Area (Cont Eq Jesus) 1.32 cm2 AV Regurgitation 2D LVOT Area 2.81 cm2 AV Regurgitation Doppler AR Decel Time 1 s AR Decel [place] 138.79 cm/s2 AR PHT 0 s Ventricles Name Value Normal LV Dimensions 2D/MM IVS Diastolic Thickness (2D) 1.03 cm 0.60-1.00 LVID Diastole (2D) 6.22 cm 3.80-5.20 LVIW Diastolic Thickness (2D) 0.91 cm 0.60-0.90 LVID Systole (2D) 5.17 cm 2.20-3.50 LVOT Diameter 1.89 cm LV Mass (2D Cubed) 251.62 g 67.00-162.00 LV Mass Index (2D Cubed) 0.02 g/cm2 0.00-0.01 Relative Wall Thickness (2D) 0.29 LV Fractional Shortening/Ejection Fraction 2D/MM LV Fractional Shortening (2D) 17 % 27-45 LV EF (2D Teicholz) 35 % 54-74 LV Diastolic Volume (4C MOD) 110.91 ml LV EF (4C MOD) 26 % LV Diastolic Volume (2C MOD) 86.13 ml LV EF (2C MOD) 39 % LV Diastolic Volume (BP MOD) 101.81 ml 46.00-106.00 LV Diastolic Volume Index (BP MOD) 0.06 l/m2 0.03-0.06 LV Systolic Volume (BP MOD) 65.89 ml 14.00-42.00 LV Systolic Volume Index (BP MOD) 0.04 l/m2 0.01-0.02 LV EF (BP MOD) 35 % 54-74 LV Diastolic Length (4C) 7.94 cm LV Systolic Length (4C) 7.07 cm LV Stroke Volume (4C MOD) 28.65 ml Atria Name Value Normal LA Dimensions LA Volume (4C A-L) 56.18 ml LA Volume (BP A-L) 72.82 ml RA Dimensions RA Area (4C) 14.29 cm2 <=18.00 Report Signatures
[2024-01-31] MEDS: ACETAMINOPHEN 325 MG TABLET 650 MG PO (03:31)
[2024-01-31 04:31] LABS: Toxigenic C. Diff NEGATIVE (NEGATIVE)
[2024-01-31 04:44] LABS: Basophils Percent Auto 0.3 % (0.2-1.2); Eosinophils Absolute Auto 0.2 K/mm3 (0-0.3); Eosinophils Percent Auto 2.4 % (0-4.4); Hematocrit 31.4 % (37.0-47.0); Hemoglobin 9.9 g/dL (12.0-15.0); Immature Granulocyte Absolute 0.02 K/mm3 (0.00-0.031); Immature Granulocyte Percent A 0.3 % (0-0.5); Lymphocytes Absolute Auto 0.68 K/mm3 (0.9-3.2); Lymphocytes Percent Auto 9.7 % (18.3-44.2); Mean Corpuscular HGB Conc 31.5 g/dl (32-36); Mean Corpuscular Hemoglobin 30.8 pg (26-34); Mean Corpuscular Volume 97.8 fl (80-100); Mean Platelet Volume 10.1 fl (7.4-10.4); Monocytes Absolute Auto 0.5 K/mm3 (0.1-0.6); Monocytes Percent Auto 6.6 % (2.6-8.5); Neutrophils Absolute Auto 5.7 K/mm3 (1.3-6.7); Neutrophils Percent Auto 80.7 % (45.5-73.1); Platelet Count Result 175 k/mm3 (150-375); Red Blood Count 3.21 M/mm3 (4.2-5.4); Red Cell Distribution Width 18.4 % (11.5-14.5)
[2024-01-31 04:54] LABS: Alanine Aminotransferase 25 U/L (6-35); Albumin Level 3.1 g/dL (3.5-5.1); Alkaline Phosphatase 57 U/L (38-126); Anion Gap 7 mmol/L (4-12); Aspartate Amino Transferase 28 U/L (14-36); Bilirubin,Total 0.6 mg/dL (0.2-1.3); Blood Urea Nitrogen 43 mg/dL (7-17); Carbon Dioxide 25 mmol/L (22-30); Chloride 105 mmol/L (98-107); Creatine Kinase 35 U/L (30-135); Estimated Glomerular Filt Rate 49; Glucose 129 mg/dL (65-110); Magnesium 2.2 mg/dL (1.6-2.3); Potassium 3.2 mmol/L (3.4-5.0); Sodium 137 mmol/L (137-145)
[2024-01-31] MEDS: metroNIDAZOLE 500 MG/ISO 100ML 500 MG/100 ML BAG 100 MG IVPB ×3 (09:15→23:55)
[2024-01-31] MEDS: FUROSEMIDE INJ 40 MG/4 ML VIAL IV PUSH (09:15)
[2024-01-31] MEDS: EMPAGLIFLOZIN 10 MG TABLET PO (09:27)
[2024-01-31] MEDS: PANTOPRAZOLE SOD SESQUIHYDRATE 20 MG TAB PO (09:27)
[2024-01-31] MEDS: carvediloL 6.25 MG TABLET PO ×2 (09:27→20:34)
[2024-01-31] MEDS: POTASSIUM CHLORIDE 10 MEQ ER TABLET PO (09:28)
[2024-01-31] MEDS: SACUBITRIL/VALSARTAN 24-26 MG TABLET 1 TAB PO ×2 (09:28→20:34)
[2024-01-31] MEDS: POTASSIUM CHLORIDE 20 MEQ ER TABLET 40 MEQ PO (09:49)
[2024-01-31] MEDS: PERFLUTREN LIPID MICROSPHERES 1.5 ML VIAL DILUTED TO 10 ML TOTAL VOLUME IV PUSH (11:15)
--- NOTE | 2024-01-31 11:43 | IVDEFINITY ---
Prior to administration of IV Definity the patient was educated on the risks and benefits of the imaging enhancing agent including potential adverse side effects. The patient verbalized understanding. Allergies were verified. No exclusion criteria were identified and at least one of the following inclusion criteria were met: 1) physician request, 2) patient technically difficult to image (per the [place] [employer]chocardi[employer] guidelines of two or more segments not discernable within the apical view), or 3) questionable left ventricular function. ?
[2024-01-31 12:05] LABS: Glucose Point of Care 115 mg/dl (65-105)
--- NOTE | 2024-01-31 12:16 | PCDIET ---
Consult received for a previous home order of pro stat liquid TID. Pt states she is not aware of that supplement, does not wish to have any supplements. Reported eating fine and those supplements give her GI issues. No nutrition recommendations at this time.
--- NOTE | 2024-01-31 15:06 | PM.IMPN ---
Progress Note: A&P Assessment and Plan (1) Combined systolic and diastolic congestive heart failure: Qualifiers: Heart failure chronicity: acute on chronic Qualified Code(s): I50.43 - Acute on chronic combined systolic (congestive) and diastolic (congestive) heart failure Code(s): I50.40 - Unspecified combined systolic (congestive) and diastolic (congestive) heart failure Status: Acute Assessment and Plan: Patient here for AMS probably multifactorial. Imaging showing pulmonary edema on imaging EKG showing NSR with first degree AVB, LAD, age indeterminate anteroseptal infarct and ST-T wave changes in the high lateral leads. Troponin elevated to 0.043 ER started Kaplan cath and IV Lasix 40 mg BID Echo with severe global LV systolic dysfunction (25-30% EF), Grade 3-4 diastolic dysfunction, elevated LAP, mild RV enlargement with hypokinesis, mild MR, mild and AI, mild pHTN (41 RVSP) and mild-mod pericardial effusion but no tamponade. UOP good with negative fluid balance. Continue home medications including Jardiance, Entresto and Coreg. Consider adding Spironolactone. Repeat troponin to trend. On room air. Will change to oral Lasix tomorrow. (2) Acute UTI: Code(s): N39.0 - Urinary tract infection, site not specified Status: Acute Assessment and Plan: UA is consistent with UTI. UCx collected. Rocephin started. Prior positive urine culture was Proteus mirabilis resistant to Levaquin, Cipro and cefazolin UCx pending. CT scan showing mild bilateral renal cortical atrophy. Gas and a Kaplan catheter within the decompressed bladder. There is wall thickening of the bladder and mild stranding in the immediately surrounding fat suspicious for cystitis which could be either acute or chronic. There is gas within the left ureter, renal pelvis and calyces with peripheral enhancing urothelium suspicious for ascending UTI. There are some gas beginning in the urethra alongside the Kaplan catheter which extends anteriorly into the region of the widened pubic symphysis suggesting fistulous communication to the urethra. Continue Rocephin. Follow up on UCx results. (3) Colitis: Code(s): K52.9 - Noninfective gastroenteritis and colitis, unspecified Status: Acute Assessment and Plan: Patient with diarrhea. CT showing mild rectal wall thickening and perirectal inflammatory stranding consistent with mild proctitis. Fecal containment system place. Stool is negative for C diff. Continue Flagyl and Rocephin. Check stool culture. (4) Acute kidney injury: Code(s): N17.9 - Acute kidney failure, unspecified Status: Acute Assessment and Plan: Labs show Cr 1.2, BUN 44 and eGFR 54, with usual baseline Cr 0.7-0.9 and eGFR >60 CT Abd/Pelvis was with contrast. ABDIRASHID related to UTI, chronic infection, poor renal perfusion from low EF and/or ATN. Cr slightly worsen with diuresis for fluid overload in CHF exacerbation Will stop Lasix IV after today. Monitor renal function, electrolytes and UOP (5) Osteomyelitis: Code(s): M86.9 - Osteomyelitis, unspecified Status: Acute Assessment and Plan: CT scan showing a widened pubic symphysis with irregular cortical contours with gas tracking from the pubic symphysis to the urethra which is suspicious for fistulous communication and secondary chronic osteomyelitis. Pelvic MR showing chronic osteomyelitis at the pubic symphysis WBC normal. Cultures are pending. [place] to be chronic. Continue abx as above. Advance Rocephin. (6) Type 2 diabetes mellitus with hyperglycemia: Code(s): E11.65 - Type 2 diabetes mellitus with hyperglycemia Status: Acute Assessment and Plan: Recent A1c 7.5. The patient's blood glucose was reviewed on 01/30 Glucose remains well controlled. Continue AccuCheks covering with sliding scale. Hypoglycemia protocol available as needed. Continue to monitor (7) HTN (hypertension): Qualifiers: Hypertension type: unspecified Qualified Code(s): I10 - Essential (primary) hypertension Code(s): I10 - Essential (primary) hypertension Status: Chronic Assessment and Plan: Patient's blood pressure was reviewed on 01/30 Blood pressure remains well controlled. Will continue current medications. (8) Abdominal wall fluid collections: Code(s): R18.8 - Other ascites Status: Acute Assessment and Plan: She has a partially rim calcified loculated subcutaneous fluid collection superficial to the mesh repair which measures 14.7 cm craniocaudally and 10.1 x 7.2 cm maximal transaxial dimensions. CT scan from 2022 measured it as 15.3 x 8.9 x 6.5 cm rim calcified fluid collection so appears slightly larger. [place] to be chronic (9) Abnormal breast finding: Code(s): N64.59 - Other signs and symptoms in breast Status: Acute Assessment and Plan: She has a 6.7 cm fluid collection in right breast that is chronic, likely a seroma noted by imaging. [place] to be chronic (10) S/P AKA (above knee amputation) bilateral: Code(s): Z89.611 - Acquired absence of right leg above knee; Z89.612 - Acquired absence of left leg above knee Status: Acute Assessment and Plan: Due to DM. Frequent turing. (11) Abnormal CT of the abdomen: Code(s): R93.5 - Abnormal findings on diagnostic imaging of other abdominal regions, including retroperitoneum Status: Acute Assessment and Plan: As above Plan DVT prophylaxis - no SCDs since she is s/p bilateral AKA and no heaprin products she has anemia. Code status - full Subjective Date/time seen: 01/31/24 15:06 Interval history: 69yo female with dementia, CHF, HTN, CAD and DM here for altered mental status. Assuming care. Chart reviewed. Patient complains of phantom leg pain. She denies chest pain, shortness of breath or cough. She is still having diarrhea. No abdominal pain. Exam Narrative: AF 98.2 141/66 64 20 100% ra Gen - NARD Chest -lungs clear anteriorly. right lateral breast with firm mass with overlying hyperpigmented skin CV - RRR S1/S2. Telemetry showing no signifincant dysrhythmias Abd - Soft, obese, NT. Palm sized firm mass midline abdomen. - Kaplan secured draining clear yellow urine. FCS in place with light brown stool in bag Ext - bilateral AKA Neuro - Alert and oriented x3 (not Kar name). Psych - Nml mood and affect Skin - Warm and dry Objective Data Vital Signs Vital Signs: Vital Signs - 24 hr 01/30/24 16:30 01/30/24 18:00 01/30/24 19:52 Temperature 97.6 F Pulse Rate 66 65 66 Respiratory Rate 20 20 Blood Pressure 100/52 L 111/40 L Pulse Oximetry 97 96 Oxygen Delivery 01/30/24 21:42 01/30/24 21:53 01/30/24 20:00 Temperature Pulse Rate 66 Respiratory Rate Blood Pressure 117/33 L Pulse Oximetry Oxygen Delivery Room Air 01/30/24 22:00 01/30/24 20:00 01/30/24 23:39 Temperature 97.7 F Pulse Rate 67 66 68 Respiratory Rate 20 Blood Pressure 111/32 L Pulse Oximetry 100 Oxygen Delivery 01/31/24 00:00 01/31/24 00:00 01/31/24 02:00 Temperature Pulse Rate 64 62 Respiratory Rate Blood Pressure Pulse Oximetry Oxygen Delivery Room Air 01/31/24 04:00 01/31/24 04:00 01/31/24 04:43 Temperature 98.6 F Pulse Rate 65 65 Respiratory Rate 20 Blood Pressure 121/30 L Pulse Oximetry 100 Oxygen Delivery Room Air 01/31/24 06:00 01/31/24 08:00 01/31/24 09:27 Temperature 97.5 F L Pulse Rate 57 L 60 62 Respiratory Rate 18 Blood Pressure 95/70 L Pulse Oximetry 99 Oxygen Delivery 01/31/24 12:00 01/31/24 08:00 Temperature 98.2 F Pulse Rate 64 62 Respiratory Rate 20 Blood Pressure 141/66 H Pulse Oximetry 100 Oxygen Delivery Intake/Output Intake/Output: Intake & Output 01/28/24 01/29/24 01/30/24 01/31/24 23:59 23:59 23:59 23:59 Intake Total 150 300 Output Total 500 1450 Balance -350 -1150 Meds/Results Medications: Active Medications Generic Name Dose Route Start Last Admin Trade Name Freq PRN Reason Stop Dose Admin Acetaminophen 650 mg 01/30/24 18:56 01/31/24 03:31 Acetaminophen 325 Mg Tablet PO 650 mg Q6H PRN Administration Pain Rated 5 or Less Atorvastatin Calcium 40 mg 01/30/24 21:00 01/30/24 21:42 Atorvastatin 40 Mg Tablet PO 40 mg HS KASIE Administration Carvedilol 6.25 mg 01/30/24 21:00 01/31/24 09:27 Carvedilol 6.25 Mg Tablet PO 6.25 mg Q12HR KASIE Administration Dextrose 12.5 gm 01/31/24 00:00 Dextrose 50% 25 Gm/50 Ml Syringe IV PUSH PRN PRN Hypoglycemia Protocol Empagliflozin 10 mg 01/31/24 09:00 01/31/24 09:27 Empagliflozin 10 Mg Tablet PO 10 mg DAILY KASIE Administration Ferrous Sulfate 325 mg 01/31/24 12:00 Ferrous Sulfate [address] PO 1200,1700 KASIE Furosemide 40 mg 01/30/24 21:00 01/31/24 09:15 Furosemide Inj 40 Mg/4 Ml Vial IV PUSH 40 mg Q12HR KASIE Administration Gabapentin 300 mg 01/30/24 22:00 01/31/24 05:38 Gabapentin 300 Mg Capsule PO Not Given Q8HR KASIE Glucagon 1 mg 01/31/24 00:00 Glucagon For Inj 1 Mg Vial IM PRN PRN Hypoglycemia Protocol Glucose 15 gm 01/31/24 00:00 Glucose Oral Gel 15 Gm Of Glucse In 37.5 Gm Tube PO PRN PRN Hypoglycemia Protocol Ceftriaxone Sodium 1 gm in 50 mls @ 100 mls/hr 01/31/24 09:00 01/31/24 09:28 Rocephin 1 Gm/Ns 50 Ml IVPB 100 mls/hr Q24H KASIE Administration Metronidazole 500 mg in 100 mls @ 100 mls/hr 01/31/24 00:00 01/31/24 09:15 Flagyl 500 Mg/Iso Soln 100 Ml IVPB 100 mls/hr Q8H KASIE Administration Dextrose 1,000 mls @ 100 mls/hr 01/31/24 00:00 Dextrose 5% 1,000 Ml IVPB PRN PRN Hypoglycemia Protocol Insulin Aspart 0 units 01/31/24 08:00 01/31/24 14:50 Insulin Aspart (*Bkc) 100 Units/Ml SUB-Q Not Given ACINSULIN [facility] Protocol Insulin Glargine 8 units 01/30/24 21:00 01/30/24 21:47 Insulin Glargine (*Bkc) 100 Units/Ml SUB-Q 8 units QHS KASIE Administration Levothyroxine Sodium 100 mcg 01/31/24 06:30 01/31/24 05:39 Levothyroxine Sodium 100 Mcg Tablet PO Not Given DAILY@0630 [facility] Ondansetron HCl 4 mg 01/30/24 16:19 Ondansetron Inj 4 Mg/2 Ml Vial IV PUSH Q4H PRN Nausea Ondansetron HCl 4 mg 01/30/24 18:59 Ondansetron Inj 4 Mg/2 Ml Vial IV PUSH Q6H PRN Nausea And Vomiting Pantoprazole Sodium 20 mg 01/31/24 09:00 01/31/24 09:27 Pantoprazole Sod Sesquihydrate 20 Mg Tab PO 20 mg QAM KASIE Administration Potassium Chloride 10 meq 01/31/24 09:00 01/31/24 09:28 Potassium Chloride 10 Meq Er Tablet PO 10 meq DAILY KASIE Administration Sacubitril/Valsartan 1 tab 01/30/24 21:00 01/31/24 09:28 Sacubitril/Valsartan 24-26 Mg Tablet PO 1 tab Q12H KASIE Administration Tramadol HCl 50 mg 01/30/24 18:56 Tramadol Hcl (*Crx) 50 Mg Tablet PO Q8H PRN Pain Rated 6 or Greater Radiology Results: ITS Impressions Chest X-Ray 01/30/24 13:15 IMPRESSION: Cardiomegaly with cardiac decompensation and pulmonary edema. Superimposed pneumonitis is not excluded. Left lower lobe atelectasis versus pneumonia. Possibility of effusion excluded. Abdomen/Pelvis CT 01/30/24 14:48 IMPRESSION: 1. Rectal tube in expected position with mild rectal wall thickening and perirectal inflammatory stranding suggestive of mild proctitis. 2. Likely cystitis with ascending left urinary tract infection. 3. Soft tissue gas at the right breast which appears intravascular potentially intravenous related to IV catheter placement. Correlate with clinical history. 4. Recommend with chronic small pericardial effusion. 5. Likely proctitis which could related to stercoral colitis or the presence of a rectal tube. 6. Widened pubic symphysis with irregular cortical contours with gas tracking from the pubic symphysis to the urethra which is suspicious for fistulous communication and secondary chronic osteomyelitis. Chest CT 01/30/24 15:44 IMPRESSION: 1. Venous gas in anterior chest wall, likely from IV injection, likely not clinically significant. 2. Mild pulmonary edema. 3. Small pericardial effusion. 4. Cardiomegaly. 5. 6.7 cm fluid collection in right breast that is chronic, likely a seroma. Labs Labs: Laboratory Results - last 24 hr 01/30/24 01/30/24 01/30/24 04:00 20:18 20:42 WBC RBC Hgb Hct MCV MCH MCHC RDW Plt Count MPV Immature Gran % (Auto) Neut % (Auto) Lymph % (Auto) Swain % (Auto) Eos % (Auto) Baso % (Auto) Lymph # (Auto) Swain # (Auto) Eos # (Auto) Baso # (Auto) Abs Immat Gran (auto) Absolute Neuts (auto) Absolute Nucleated RBC Nucleated RBC % Sodium Potassium Chloride Carbon Dioxide Anion Gap BUN Creatinine Estim Creat Clear Calc Estimated GFR Glucose POC Capillary Glucose 76 104 Calcium Magnesium Iron TIBC % Saturation Ferritin Total Bilirubin AST ALT Alkaline Phosphatase Total Creatine Kinase Total Protein Albumin Vitamin B12 Folate C. difficile (PCR) Negative 01/30/24 01/31/24 01/31/24 21:13 04:40 11:49 WBC 7.0 RBC 3.21 L Hgb 9.9 L Hct 31.4 L MCV 97.8 MCH 30.8 MCHC 31.5 L RDW 18.4 H Plt Count 175 MPV 10.1 Immature Gran % (Auto) 0.3 Neut % (Auto) 80.7 H Lymph % (Auto) 9.7 L Swain % (Auto) 6.6 Eos % (Auto) 2.4 Baso % (Auto) 0.3 Lymph # (Auto) 0.68 L Swain # (Auto) 0.5 Eos # (Auto) 0.2 Baso # (Auto) 0.0 Abs Immat Gran (auto) 0.02 Absolute Neuts (auto) 5.7 Absolute Nucleated RBC 0.000 Nucleated RBC % 0.0 Sodium 137 Potassium 3.2 L Chloride 105 Carbon Dioxide 25 Anion Gap 7 BUN 43 H Creatinine 1.30 H Estim Creat Clear Calc Not Reportable Estimated GFR 49 L Glucose 129 H POC Capillary Glucose 115 H Calcium 8.0 L Magnesium 2.2 Iron 25 L TIBC 189 L % Saturation 13 L Ferritin 356.00 H Total Bilirubin 0.6 AST 28 ALT 25 Alkaline Phosphatase 57 Total Creatine Kinase 35 Total Protein 7.0 Albumin 3.1 L Vitamin B12 > 1000.0 H Folate 8.1 C. difficile (PCR)
[2024-01-31] MEDS: GABAPENTIN 300 MG CAPSULE PO ×2 (15:35→20:34)
[2024-01-31] MEDS: FERROUS SULFATE 325 MG TABLET DR PO (15:48)
--- NOTE | 2024-01-31 16:01 | PM.CNGS ---
Assessment and Plan Assessment and plan (1) Abnormal breast finding: Code(s): N64.59 - Other signs and symptoms in breast Status: Acute Assessment and Plan: Chest CT showed a fluid collection of the right breast with calcifications of the rim and an appearance of a chronic fluid collection. There are multiple possible etiologies for this fluid collection including a chronic seroma following lumpectomy and her breast cancer treatment, hematoma, abscess, or a malignant fluid collection. There are no signs of infection of the skin or area of the right breast around the fluid collection on exam. She did have bilateral lumpectomy and radiation in 2011 following a diagnosis of bilateral breast cancer as outlined in the HPI. It is unclear what her follow-up has been since her breast cancer and there is certainly a possibility for malignancy. Although, this has more of an appearance of a chronic fluid collection or possible hematoma that could have been from an injury in the past that they are not aware of and the patient doesn't recall due to her dementia. I reviewed the CT scan with the radiologist, who recommends a right breast ultrasound for further evaluation. Depending on the appearance of the fluid collection, then she could potentially have an ultrasound-guided aspiration with the fluid sent for cultures and cytology. This is not appear to be her acute problem or reason for her admission. We will continue to follow along. (2) Abdominal wall fluid collections: Code(s): R18.8 - Other ascites Status: Acute Assessment and Plan: The patient has a large fluid collection anterior to a previous ventral hernia repair with mesh. There does not appear to be any evidence of a recurrent hernia. She is completely asymptomatic and has no tenderness on exam. The overlying skin appears healthy with no signs of infection. In review of previous CT scans, there was evidence of the same fluid collection over a year ago that appears similar to her CT scan on this admission. Given the likelihood that this is a sterile fluid collection or seroma, we would defer further intervention at this time unless she were to become symptomatic or develops leukocytosis. If we were to aspirate this fluid collection, then this would also introduce a source for possible infection. This could be monitored for now. Again, this is not the reason for her admission, but it was the other reason for consultation. We will continue to follow along. (3) CHF exacerbation: Code(s): I50.9 - Heart failure, unspecified Status: Acute (4) Acute UTI: Code(s): N39.0 - Urinary tract infection, site not specified Status: Acute (5) Colitis: Code(s): K52.9 - Noninfective gastroenteritis and colitis, unspecified Status: Acute (6) Type 2 diabetes mellitus with hyperglycemia: Code(s): E11.65 - Type 2 diabetes mellitus with hyperglycemia Status: Acute (7) Combined systolic and diastolic congestive heart failure: Qualifiers: Heart failure chronicity: acute on chronic Qualified Code(s): I50.43 - Acute on chronic combined systolic (congestive) and diastolic (congestive) heart failure Code(s): I50.40 - Unspecified combined systolic (congestive) and diastolic (congestive) heart failure Status: Acute (8) S/P AKA (above knee amputation) bilateral: Code(s): Z89.611 - Acquired absence of right leg above knee; Z89.612 - Acquired absence of left leg above knee Status: Acute (9) Acute kidney injury: Code(s): N17.9 - Acute kidney failure, unspecified Status: Acute Plan I have discussed the patient's case and plan of care with Dr. Agustin. Thank you for allowing us to see the patient in consultation and we will continue to follow along with you. History of Present Illness Consult details Consult date: 01/31/24 Reason for consult: other (Abdominal and right breast fluid collection on CT) Requesting physician: Serg Stringer, CAMERON Narrative: This is a 69-year-old woman with past medical history of type 2 diabetes mellitus, congestive heart failure, hypertension, hypothyroidism, bilateral AKA, and multiple other medical problems, who presented to the emergency department from the intermediate for evaluation of an altered mental status. The although she is able to answer questions and is oriented to person and place, she is a poor historian. Her son is at the bedside and helps provide some of her history as well as reviewed from the electronic medical record. The patient and son are unaware of any other symptoms leading up to the ED evaluation. Labs showed a white blood cell count of 7300, hemoglobin 9.7 that appears stable with evidence of chronic anemia, BUN 44, creatinine 1.2, troponin 0.043, BNP greater than 30,000, albumin 3.1. UA suggesting UTI. Urine culture pending. Per her son, she has had multiple UTIs since being in the intermediate. Chest x-ray showed cardiomegaly with pulmonary edema, and possible superimposed pneumonitis, left lower lobe atelectasis versus pneumonia. She apparently had profuse diarrhea and had a rectal tube placed in the ER. She then had a CT scan of the abdomen and pelvis which showed a rectal tube in expected position with mild rectal wall thickening and perirectal inflammatory stranding suggestive of mild proctitis, likely cystitis with ascending left urinary tract infection, soft tissue gas at the right breast which appears intravascular as well as a fluid collection in the right breast. Possible chronic small pericardial effusion, and widened pubic symphysis with irregular cortical contours with gastric in from the pubic symphysis to the urethra which is suspicious for fistulous communication and secondary chronic osteomyelitis. CT also shows changes of a prior ventral hernia repair with mesh and a partially rim calcified loculated subcutaneous fluid collection superficial to the mesh repair which measures 14.7 cm craniocaudally. Due to the breast findings on the abdominal CT, she had a chest CT that showed venous gas in the anterior chest wall, likely from IV injection, mild pulmonary edema, small pericardial effusion, cardiomegaly, and a 6.7 cm fluid collection in the right breast that is chronic, likely a seroma. She has been admitted to the IMU and is currently on IV ceftriaxone and metronidazole. She does not to be on any previous anticoagulation. Her son reports that she had left-sided breast cancer over 10 years ago. They report she had a lumpectomy with chemotherapy and radiation. At that time, she had a right chest Port-A-Cath which was subsequently removed once her treatment was completed. 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 The patient denies any further treatment following her initial breast cancer diagnosis. She denies any recent trauma to her breasts. She denies any other procedures to her chest or intravenous access recently. She denies any breast or abdominal pain. Her only pain that she complains of is her chronic phantom limb pain following her amputations. She denies noticing any drainage from her breasts and cannot verify if she has had any mammograms or follow-up following her breast cancer treatment. She also denies ever having any abdominal surgery, and her son cannot recall her previous abdominal surgeries, but she clearly has a midline abdominal scar and evidence of ventral hernia repair with mesh on CT. Review of Systems Review of Systems: ROS unobtainable: Yes unobtainable due to mental status (oriented to place and person but poor historian ) [facility] Past Medical History Medical History (Updated 01/31/24 @ 16:46 by MILLI Flores) Anemia Combined systolic and diastolic congestive heart failure echocardiogram 12/06/2021: Severely reduced right ventricular systolic function with EF of 20-25%, moderate left ventricular chamber enlargement, moderate left atrial enlargement, grade 2 diastolic dysfunction Dementia Dyslipidemia Encephalopathy acute GERD (gastroesophageal reflux disease) History of breast cancer HTN (hypertension) Hyperlipidemia Neuropathy Non-STEMI (non-ST elevated myocardial infarction) Peripheral vascular disease Psychiatric disorder Thyroid cancer Type 2 diabetes mellitus with hyperglycemia Surgical History Surgical History History of lumpectomy of left breast History of right breast implant Patient reports that it was radiation implant History of thyroid surgery S/P AKA (above knee amputation) bilateral Family History Family History Mother Family history of type 2 diabetes mellitus, Onset Age: 55 Father Acute myocardial infarction, Onset Age: 58 Social History Social History Social History: The patient has advanced directive paperwork from the intermediate that states she is a DNR. However the patient's family members that were in the ER stated that they wanted the patient to be a full code. The patient herself wishes to be a DNR/DNI. Patient is mildly confused but is seemed to be having capacity and understands consequences. Smoking status: Unknown if ever smoked Second hand tobacco smoke exposure: No Alcohol intake: never Substance use: never Substance use type: does not use Do You Feel Safe in your Home?: Yes Lack of Transportation: No Lack of Food: Never True Current Housing: I Have Housing Concerned About Future Housing: No Difficulty Paying Gas/Electric Bills: No Difficulty Paying for Meds: No Currently Unemployed: No Education: Decline to Answer Difficulty w/ Childcare or Family Care: No Spiritual care concerns: No Meds Home Medications and Allergies Home Medications Medication Instructions Recorded Confirmed Type acetaminophen 325 mg capsule 650 mg PO Q6H PRN Pain (Scale 12/05/21 01/30/24 History (Tylenol) Score 1-3) atorvastatin 40 mg tablet 40 mg PO HS 12/05/21 01/30/24 History bisacodyl 10 mg rectal suppository 10 mg RECTAL PRN PRN Constipation 12/05/21 01/30/24 History insulin aspart U-100 100 unit/mL See Rx Instructions .Route .COMPLEX 12/05/21 01/30/24 History subcutaneous solution (Novolog U-100 Insulin aspart) levothyroxine 100 mcg tablet 100 mcg PO DAILY 12/05/21 01/30/24 History ondansetron HCl 4 mg tablet 4 mg PO Q8H PRN Nausea 12/05/21 01/30/24 History empagliflozin 10 mg tablet 10 mg PO DAILY 1 month #30 tabs 12/08/21 01/30/24 Rx (Jardiance) gabapentin 300 mg capsule 300 mg PO TID 05/16/22 01/30/24 History omeprazole 20 mg capsule,delayed 20 mg PO DAILY 05/16/22 01/30/24 History release potassium chloride 10 mEq 10 meq PO DAILY 05/16/22 01/30/24 History capsule,extended release Lantus U-100 Insulin 8 unit subcut QHS 01/10/24 01/30/24 History furosemide 40 mg tablet (Lasix) 40 mg PO DAILY 01/10/24 01/30/24 History carvedilol 6.25 mg tablet (Coreg) 6.25 mg PO BID 01/30/24 01/30/24 History ferrous sulfate 325 mg (65 mg 325 mg PO DAILY PRN anemia 01/30/24 01/30/24 History iron) tablet magnesium citrate (Citroma oral 296 ml PO DAILY PRN Constipation 01/30/24 01/30/24 History solution) magnesium hydroxide 400 mg/5 mL 30 ml PO HS PRN CONSTIPATION 01/30/24 01/30/24 History oral suspension (Milk of Magnesia) naloxone 4 mg/actuation nasal spray 1 spray intranasal Q2M PRN OPIOD 01/30/24 01/30/24 History OVERDOSE sacubitril 24 mg-valsartan 26 mg 1 tablet PO Q12H 01/30/24 01/30/24 History tablet (Entresto) sodium phosphates 19 gram-7 118 ml RECTAL PRN PRN constipation 01/30/24 01/30/24 History gram/118 mL enema (Fleet Enema) tramadol 50 mg tablet 50 mg PO Q8H PRN pain 01/30/24 01/30/24 History Allergies Allergy/AdvReac Type Severity Reaction Status Date / Time codeine Allergy Unknown Verified 01/30/24 15:44 Vital Signs Vital Signs - 24 hr 01/30/24 16:30 01/30/24 18:00 01/30/24 19:52 Temperature 97.6 F Pulse Rate 66 65 66 Respiratory Rate 20 20 Blood Pressure 100/52 L 111/40 L Pulse Oximetry 97 96 Oxygen Delivery 01/30/24 21:42 01/30/24 21:53 01/30/24 20:00 Temperature Pulse Rate 66 Respiratory Rate Blood Pressure 117/33 L Pulse Oximetry Oxygen Delivery Room Air 01/30/24 22:00 01/30/24 20:00 01/30/24 23:39 Temperature 97.7 F Pulse Rate 67 66 68 Respiratory Rate 20 Blood Pressure 111/32 L Pulse Oximetry 100 Oxygen Delivery 01/31/24 00:00 01/31/24 00:00 01/31/24 02:00 Temperature Pulse Rate 64 62 Respiratory Rate Blood Pressure Pulse Oximetry Oxygen Delivery Room Air 01/31/24 04:00 01/31/24 04:00 01/31/24 04:43 Temperature 98.6 F Pulse Rate 65 65 Respiratory Rate 20 Blood Pressure 121/30 L Pulse Oximetry 100 Oxygen Delivery Room Air 01/31/24 06:00 01/31/24 08:00 01/31/24 09:27 Temperature 97.5 F L Pulse Rate 57 L 60 62 Respiratory Rate 18 Blood Pressure 95/70 L Pulse Oximetry 99 Oxygen Delivery 01/31/24 12:00 01/31/24 08:00 Temperature 98.2 F Pulse Rate 64 62 Respiratory Rate 20 Blood Pressure 141/66 H Pulse Oximetry 100 Oxygen Delivery Exam Const: General: comfortable and no acute distress Nutritional Appearance: obese Orientation/consciousness: oriented to person, oriented to place and No oriented to time HENMT: Head: normocephalic and atraumatic Ears: hearing grossly normal bilaterally Mouth: Yes moist mucous membranes Eyes: General: appearance normal, both eyes and all related structures Pupils: Equal, round and reactive pupils present Neck: Neck: normal visual inspection and full ROM Chest: Other: Left breast with darkening of the areola and some firm nodules in the nipple area but no discharge or obvious abnormalities of the skin. No axillary lymphadenopathy obviously palpable bilaterally. Right breast with normal appearance of the nipple, but a large 6-7 cm localized area of swelling in the right outer quadrant of the breast that is fluctuant with a 3-4 cm area of dark skin discoloration at about 11 o'clock, no drainage, no redness of the skin in this area, and it is completely nontender. Resp: Effort & Inspection: no respiratory distress Auscultation: clear to auscultation bilaterally Cardio: Rate: regular rate Rhythm: regular rhythm GI: Inspection: Pannus present and obesity Auscultation: normal bowel sounds Other: Abdomen is obese and nondistended with a central midline scar from previous laparotomy. There is no evidence of an incisional or recurrent hernia, but there is a large palpable firm mass in her central abdomen along the midline scar measuring 12-15 cm vertically. The overlying skin appears normal and healthy with no erythema and no wounds, it is completely nontender. She has no abdominal tenderness anywhere on her abdomen. No guarding. Urinary Catheter: Urinary Catheter: patent and draining and urine cloudy Skin: General skin exam: normal color Neuro: General: no focal motor deficits Speech: normal speech Extrem: General: amputation noted Above the knee: bilateral (well healed) Psych: Mental Status: mental status grossly normal Attitude: cooperative Results Labs 01/31/24 04:40 01/31/24 04:40 Labs: Abnormal lab results 01/30/24 01/31/24 01/31/24 Range/Units 21:13 04:40 11:49 RBC 3.21 L (4.2-5.4) M/mm3 Hgb 9.9 L (12.0-15.0) g/dL Hct 31.4 L (37.0-47.0) % MCHC 31.5 L (32-36) g/dl RDW 18.4 H (11.5-14.5) % Neut % (Auto) 80.7 H (45.5-73.1) % Lymph % (Auto) 9.7 L (18.3-44.2) % Lymph # (Auto) 0.68 L (0.9-3.2) K/mm3 Potassium 3.2 L (3.4-5.0) mmol/L BUN 43 H (7-17) mg/dL Creatinine 1.30 H (0.7-1.0) mg/dL Estimated GFR 49 L (59 - ) Glucose 129 H (65-110) mg/dL POC Capillary Glucose 115 H (65-105) mg/dl Calcium 8.0 L (8.4-10.2) mg/dL Iron 25 L (37-170) ug/dL TIBC 189 L (261-462) ug/dL % Saturation 13 L (20-50) % Ferritin 356.00 H (11.1-264) ng/mL Albumin 3.1 L (3.5-5.1) g/dL Vitamin B12 > 1000.0 H (239-931) pg/mL Diabetes panel 01/31/24 Range/Units 04:40 Sodium 137 (137-145) mmol/L Potassium 3.2 L (3.4-5.0) mmol/L Chloride 105 (98-107) mmol/L Carbon Dioxide 25 (22-30) mmol/L BUN 43 H (7-17) mg/dL Creatinine 1.30 H (0.7-1.0) mg/dL Glucose 129 H (65-110) mg/dL Calcium 8.0 L (8.4-10.2) mg/dL AST 28 (14-36) U/L ALT 25 (6-35) U/L Alkaline Phosphatase 57 (38-126) U/L Total Protein 7.0 (6.3-8.2) g/dL Albumin 3.1 L (3.5-5.1) g/dL Calcium panel 01/31/24 Range/Units 04:40 Calcium 8.0 L (8.4-10.2) mg/dL Albumin 3.1 L (3.5-5.1) g/dL Pituitary panel 01/31/24 Range/Units 04:40 Sodium 137 (137-145) mmol/L Potassium 3.2 L (3.4-5.0) mmol/L Chloride 105 (98-107) mmol/L Carbon Dioxide 25 (22-30) mmol/L BUN 43 H (7-17) mg/dL Creatinine 1.30 H (0.7-1.0) mg/dL Glucose 129 H (65-110) mg/dL Calcium 8.0 L (8.4-10.2) mg/dL Adrenal panel 01/31/24 Range/Units 04:40 Sodium 137 (137-145) mmol/L Potassium 3.2 L (3.4-5.0) mmol/L Chloride 105 (98-107) mmol/L Carbon Dioxide 25 (22-30) mmol/L BUN 43 H (7-17) mg/dL Creatinine 1.30 H (0.7-1.0) mg/dL Glucose 129 H (65-110) mg/dL Calcium 8.0 L (8.4-10.2) mg/dL Total Bilirubin 0.6 (0.2-1.3) mg/dL AST 28 (14-36) U/L ALT 25 (6-35) U/L Alkaline Phosphatase 57 (38-126) U/L Total Protein 7.0 (6.3-8.2) g/dL Albumin 3.1 L (3.5-5.1) g/dL All other labs normal. Imaging Additional studies: ITS Impressions Chest X-Ray 01/30/24 13:15 IMPRESSION: Cardiomegaly with cardiac decompensation and pulmonary edema. Superimposed pneumonitis is not excluded. Left lower lobe atelectasis versus pneumonia. Possibility of effusion excluded. Abdomen/Pelvis CT 01/30/24 14:48 IMPRESSION: 1. Rectal tube in expected position with mild rectal wall thickening and perirectal inflammatory stranding suggestive of mild proctitis. 2. Likely cystitis with ascending left urinary tract infection. 3. Soft tissue gas at the right breast which appears intravascular potentially intravenous related to IV catheter placement. Correlate with clinical history. 4. Recommend with chronic small pericardial effusion. 5. Likely proctitis which could related to stercoral colitis or the presence of a rectal tube. 6. Widened pubic symphysis with irregular cortical contours with gas tracking from the pubic symphysis to the urethra which is suspicious for fistulous communication and secondary chronic osteomyelitis. Chest CT 01/30/24 15:44 IMPRESSION: 1. Venous gas in anterior chest wall, likely from IV injection, likely not clinically significant. 2. Mild pulmonary edema. 3. Small pericardial effusion. 4. Cardiomegaly. 5. 6.7 cm fluid collection in right breast that is chronic, likely a seroma. Pelvis MRI 01/31/24 16:18 IMPRESSION: 1. Chronic osteomyelitis at the pubic symphysis. 2. Wall thickening of the rectosigmoid, consistent with colitis. 3. 9.3 cm fluid collection in anterior abdominal wall, likely a seroma.
[2024-01-31 20:28] LABS: Glucose Point of Care 229 mg/dl (65-105)
[2024-01-31] MEDS: ATORVASTATIN 40 MG TABLET PO (20:34)
[2024-01-31] MEDS: INSULIN GLARGINE (*BKC) 100 UNITS/ML 8 UNITS SUB-Q (20:37)
[2024-01-31] MEDS: traMADol HCL (*CRX) 50 MG TABLET PO (21:06)
[2024-02-01] VITALS (21 sets, daily range): BP systolic 105–147; BP diastolic 32–82; PULSE 60–75; RESP 16–20; TEMP 36.4–37.1; O2SAT 98–100
[2024-02-01] MEDS: GABAPENTIN 300 MG CAPSULE PO ×3 (05:22→20:54)
[2024-02-01] MEDS: LEVOTHYROXINE SODIUM 100 MCG TABLET PO (05:22)
[2024-02-01] MEDS: traMADol HCL (*CRX) 50 MG TABLET PO (05:23)
[2024-02-01 05:36] LABS: Basophils Percent Auto 0.4 % (0.2-1.2); Eosinophils Absolute Auto 0.1 K/mm3 (0-0.3); Eosinophils Percent Auto 1.6 % (0-4.4); Hematocrit 33.5 % (37.0-47.0); Hemoglobin 10.5 g/dL (12.0-15.0); Immature Granulocyte Absolute 0.02 K/mm3 (0.00-0.031); Immature Granulocyte Percent A 0.3 % (0-0.5); Lymphocytes Percent Auto 11.4 % (18.3-44.2); Mean Corpuscular HGB Conc 31.3 g/dl (32-36); Mean Corpuscular Hemoglobin 31.3 pg (26-34); Mean Platelet Volume 10.4 fl (7.4-10.4); Monocytes Absolute Auto 0.5 K/mm3 (0.1-0.6); Neutrophils Absolute Auto 5.6 K/mm3 (1.3-6.7); Neutrophils Percent Auto 79.3 % (45.5-73.1); Platelet Count Result 200 k/mm3 (150-375); Red Blood Count 3.35 M/mm3 (4.2-5.4); Red Cell Distribution Width 18.4 % (11.5-14.5)
[2024-02-01 05:58] LABS: Alanine Aminotransferase 26 U/L (6-35); Albumin Level 3.3 g/dL (3.5-5.1); Alkaline Phosphatase 52 U/L (38-126); Anion Gap 9 mmol/L (4-12); Aspartate Amino Transferase 39 U/L (14-36); Bilirubin,Total 0.5 mg/dL (0.2-1.3); Blood Urea Nitrogen 39 mg/dL (7-17); CRP 7.2 mg/dL (<1.0); Calcium 8.1 mg/dL (8.4-10.2); Carbon Dioxide 28 mmol/L (22-30); Chloride 103 mmol/L (98-107); Estimated CRCL calculation 37 ml/min; Estimated Glomerular Filt Rate 54; Glucose 72 mg/dL (65-110); Magnesium 2.1 mg/dL (1.6-2.3); Potassium 3.5 mmol/L (3.4-5.0); Sodium 140 mmol/L (137-145)
[2024-02-01 06:01] LABS: Troponin I 0.015 ng/mL (0.000-0.034)
[2024-02-01 06:50] LABS: Glucose Point of Care 54 mg/dl (65-105)
[2024-02-01 08:34] LABS: Glucose Point of Care 88 mg/dl (65-105)
[2024-02-01] MEDS: PANTOPRAZOLE SOD SESQUIHYDRATE 20 MG TAB PO (08:35)
[2024-02-01] MEDS: SACUBITRIL/VALSARTAN 24-26 MG TABLET 1 TAB PO ×2 (08:35→20:54)
[2024-02-01] MEDS: EMPAGLIFLOZIN 10 MG TABLET PO (08:35)
[2024-02-01] MEDS: POTASSIUM CHLORIDE 10 MEQ ER TABLET PO (08:35)
[2024-02-01] MEDS: carvediloL 6.25 MG TABLET PO ×2 (08:35→20:54)
[2024-02-01] MEDS: FUROSEMIDE 40 MG TABLET PO ×2 (08:35→16:43)
[2024-02-01] MEDS: cefTRIAXone 2 GM/NS 100 ML 2 GM/100 ML BAG IVPB (08:39)
--- NOTE | 2024-02-01 10:55 | PM.IMPN ---
Progress Note: A&P Assessment and Plan (1) Combined systolic and diastolic congestive heart failure: Qualifiers: Heart failure chronicity: acute on chronic Qualified Code(s): I50.43 - Acute on chronic combined systolic (congestive) and diastolic (congestive) heart failure Code(s): I50.40 - Unspecified combined systolic (congestive) and diastolic (congestive) heart failure Status: Acute Assessment and Plan: Patient here for AMS probably multifactorial. Imaging showing pulmonary edema on imaging EKG showing NSR with first degree AVB, LAD, age indeterminate anteroseptal infarct and ST-T wave changes in the high lateral leads. Troponin elevated to 0.043 but normal on repeat ER started Kaplan cath and IV Lasix 40 mg BID Echo with severe global LV systolic dysfunction (25-30% EF), Grade 3-4 diastolic dysfunction, elevated LAP, mild RV enlargement with hypokinesis, mild MR, mild and AI, mild pHTN (41 RVSP) and mild-mod pericardial effusion but no tamponade. UOP good with negative fluid balance. Continue home medications including Jardiance, Entresto and Coreg. Consider adding Spironolactone. On room air. Lasix changed to oral route today. Monitor renal fxn, BP (2) Acute UTI: Code(s): N39.0 - Urinary tract infection, site not specified Status: Acute Assessment and Plan: UA is consistent with UTI. UCx collected. Rocephin started. Prior positive urine culture was Proteus mirabilis resistant to Levaquin, Cipro and cefazolin UCx growing ESBL EColi with 10-49K colonies. CT scan showing mild bilateral renal cortical atrophy. Gas and a Kaplan catheter within the decompressed bladder. There is wall thickening of the bladder and mild stranding in the immediately surrounding fat suspicious for cystitis which could be either acute or chronic. There is gas within the left ureter, renal pelvis and calyces with peripheral enhancing urothelium suspicious for ascending UTI. There are some gas beginning in the urethra alongside the Kaplan catheter which extends anteriorly into the region of the widened pubic symphysis suggesting fistulous communication to the urethra. Will treat since could be associated with ascending UTI and fistula Change Rocephin to meropenem. Urology consult (3) Colitis: Code(s): K52.9 - Noninfective gastroenteritis and colitis, unspecified Status: Acute Assessment and Plan: Patient with diarrhea. CT showing mild rectal wall thickening and perirectal inflammatory stranding consistent with mild proctitis. Fecal containment system placed. Stool output declining Stool is negative for C diff. Stool cx negative to date Continue Flagyl. Change to meropenem. (4) Acute kidney injury: Code(s): N17.9 - Acute kidney failure, unspecified Status: Acute Assessment and Plan: Labs show Cr 1.2, BUN 44 and eGFR 54, with usual baseline Cr 0.7-0.9 and eGFR >60 CT Abd/Pelvis was with contrast. ABDIRASHID related to UTI, chronic infection, poor renal perfusion from low EF and/or ATN. Cr slightly worsen with diuresis for fluid overload in CHF exacerbation with Cr 1.2, BUN 39 and CrCl 37 Changed to oral Lasix today. Monitor renal function, electrolytes and UOP (5) Osteomyelitis: Code(s): M86.9 - Osteomyelitis, unspecified Status: Acute Assessment and Plan: CT scan showing a widened pubic symphysis with irregular cortical contours with gas tracking from the pubic symphysis to the urethra which is suspicious for fistulous communication and secondary chronic osteomyelitis. Pelvic MR showing chronic osteomyelitis at the pubic symphysis WBC normal. UCx growing ESBL Ecoli. BCx NGTD. [place] to be chronic. Continue abx as above. (6) Type 2 diabetes mellitus with hyperglycemia: Code(s): E11.65 - Type 2 diabetes mellitus with hyperglycemia Status: Acute Assessment and Plan: Recent A1c 7.5. The patient's blood glucose was reviewed on 01/31 Glucose dropped to 58 this morning. Continue AccuCheks covering with sliding scale. Hypoglycemia protocol available as needed. Continue to monitor. Decrease Lantus. (7) HTN (hypertension): Qualifiers: Hypertension type: unspecified Qualified Code(s): I10 - Essential (primary) hypertension Code(s): I10 - Essential (primary) hypertension Status: Chronic Assessment and Plan: Patient's blood pressure was reviewed on 01/31 Blood pressure remains well controlled. Will continue current medications. (8) Abdominal wall fluid collections: Code(s): R18.8 - Other ascites Status: Acute Assessment and Plan: She has a partially rim calcified loculated subcutaneous fluid collection superficial to the mesh repair which measures 14.7 x 10.1 x 7.2 cm maximal transaxial dimensions. CT scan from 2022 measured it as 15.3 x 8.9 x 6.5 cm rim calcified fluid collection so appears slightly larger. [place] to be chronic. (9) Abnormal breast finding: Code(s): N64.59 - Other signs and symptoms in breast Status: Acute Assessment and Plan: She has a 6.7 cm fluid collection in right breast that is chronic, likely a seroma noted by imaging. US showing chronic fluid collection that is smaller from 2021 [place] to be chronic. (10) S/P AKA (above knee amputation) bilateral: Code(s): Z89.611 - Acquired absence of right leg above knee; Z89.612 - Acquired absence of left leg above knee Status: Acute Assessment and Plan: Due to DM. Frequent turing. (11) Abnormal CT of the abdomen: Code(s): R93.5 - Abnormal findings on diagnostic imaging of other abdominal regions, including retroperitoneum Status: Acute Assessment and Plan: As above Plan DVT prophylaxis - no SCDs since she is s/p bilateral AKA; HH stable so will add heparin Code status - full Subjective Date/time seen: 02/01/24 10:55 Interval history: 69yo female with dementia, CHF, HTN, CAD and DM here for altered mental status. No problems overnight. Slept poorly and feels tired. She normally stays up late at night. Exam Narrative: AF 98.6 113/63 63 20 98% ra Gen - NARD Chest -lungs clear anteriorly. right lateral breast with firm mass with overlying hyperpigmented skin w/o change CV - RRR S1/S2. Telemetry showing no PVCs Abd - Soft, obese, NT. Palm sized firm mass midline abdomen w/o change. - Kaplan secured draining clear yellow urine. FCS in place with no stool in bag Ext - bilateral AKA Neuro - sleepy but oriented Skin - Warm and dry Objective Data Vital Signs Vital Signs: Vital Signs - 24 hr 01/31/24 12:00 01/31/24 16:00 01/31/24 12:00 Temperature 98.2 F 98 F Pulse Rate 64 66 68 Respiratory Rate 20 16 Blood Pressure 141/66 H 126/50 L Pulse Oximetry 100 98 Oxygen Delivery 01/31/24 14:00 01/31/24 18:00 01/31/24 20:34 Temperature Pulse Rate 71 72 74 Respiratory Rate Blood Pressure Pulse Oximetry Oxygen Delivery 01/31/24 20:38 01/31/24 20:00 01/31/24 22:00 Temperature 98.6 F Pulse Rate 75 75 Respiratory Rate 20 Blood Pressure 124/80 Pulse Oximetry 100 Oxygen Delivery Room Air 01/31/24 20:00 02/01/24 00:00 02/01/24 00:25 Temperature 98.8 F Pulse Rate 74 75 Respiratory Rate 20 Blood Pressure 135/82 Pulse Oximetry 100 Oxygen Delivery Room Air 02/01/24 00:00 02/01/24 02:00 02/01/24 04:54 Temperature 98.5 F Pulse Rate 72 69 67 Respiratory Rate 20 Blood Pressure 105/54 L Pulse Oximetry 100 Oxygen Delivery 02/01/24 04:00 02/01/24 04:00 02/01/24 06:00 Temperature Pulse Rate 67 68 Respiratory Rate Blood Pressure Pulse Oximetry Oxygen Delivery Room Air 02/01/24 08:12 02/01/24 08:35 02/01/24 09:43 Temperature 98.6 F Pulse Rate 66 67 Respiratory Rate 20 Blood Pressure 113/63 Pulse Oximetry 99 98 Oxygen Delivery Room Air 02/01/24 08:00 02/01/24 08:00 02/01/24 10:00 Temperature Pulse Rate 61 63 Respiratory Rate Blood Pressure Pulse Oximetry Oxygen Delivery Room Air Intake/Output Intake/Output: Intake & Output 01/29/24 01/30/24 01/31/24 02/01/24 23:59 23:59 23:59 23:59 Intake Total 150 1070 990 Output Total 500 3250 750 Balance -350 -2180 240 Meds/Results Medications: Active Medications Generic Name Dose Route Start Last Admin Trade Name Freq PRN Reason Stop Dose Admin Acetaminophen 650 mg 01/30/24 18:56 01/31/24 03:31 Acetaminophen 325 Mg Tablet PO 650 mg Q6H PRN Administration Pain Rated 5 or Less Atorvastatin Calcium 40 mg 01/30/24 21:00 01/31/24 20:34 Atorvastatin 40 Mg Tablet PO 40 mg HS KASIE Administration Carvedilol 6.25 mg 01/30/24 21:00 02/01/24 08:35 Carvedilol 6.25 Mg Tablet PO 6.25 mg Q12HR KASIE Administration Dextrose 12.5 gm 11/20/24 00:00 Dextrose 50% 25 Gm/50 Ml Syringe IV PUSH PRN PRN Hypoglycemia Protocol Empagliflozin 10 mg 01/31/24 09:00 02/01/24 08:35 Empagliflozin 10 Mg Tablet PO 10 mg DAILY KASIE Administration Ferrous Sulfate 325 mg 01/31/24 12:00 01/31/24 17:16 Ferrous Sulfate [address] PO Not Given 1200,1700 KASIE Furosemide 40 mg 02/01/24 09:00 02/01/24 08:35 Furosemide 40 Mg Tablet PO 40 mg BID KASIE Administration Gabapentin 300 mg 01/30/24 22:00 02/01/24 05:22 Gabapentin 300 Mg Capsule PO 300 mg Q8HR KASIE Administration Glucagon 1 mg 01/31/24 00:00 Glucagon For Inj 1 Mg Vial IM PRN PRN Hypoglycemia Protocol Glucose 15 gm 01/31/24 00:00 Glucose Oral Gel 15 Gm Of Glucse In 37.5 Gm Tube PO PRN PRN Hypoglycemia Protocol Dextrose 1,000 mls @ 100 mls/hr 01/31/24 00:00 Dextrose 5% 1,000 Ml IVPB PRN PRN Hypoglycemia Protocol Ceftriaxone Sodium 2 gm in 100 mls @ 200 mls/hr 02/01/24 09:00 02/01/24 09:10 Rocephin 2 Gm/Ns 100 Ml IVPB Infused Q24H [facility] Infusion Insulin Aspart 0 units 01/31/24 08:00 02/01/24 08:31 Insulin Aspart (*Bkc) 100 Units/Ml SUB-Q Not Given ACINSULIN [facility] Protocol Insulin Glargine 4 units 02/01/24 21:00 Insulin Glargine (*Bkc) 100 Units/Ml SUB-Q QHS [facility] Levothyroxine Sodium 100 mcg 01/31/24 06:30 02/01/24 05:22 Levothyroxine Sodium 100 Mcg Tablet PO 100 mcg DAILY@0630 [facility] Administration Metronidazole 500 mg 02/01/24 14:00 Metronidazole 500 Mg Tablet PO Q8HR [facility] Ondansetron HCl 4 mg 01/30/24 16:19 Ondansetron Inj 4 Mg/2 Ml Vial IV PUSH Q4H PRN Nausea Ondansetron HCl 4 mg 01/30/24 18:59 Ondansetron Inj 4 Mg/2 Ml Vial IV PUSH Q6H PRN Nausea And Vomiting Pantoprazole Sodium 20 mg 01/31/24 09:00 02/01/24 08:35 Pantoprazole Sod Sesquihydrate 20 Mg Tab PO 20 mg QAM KASIE Administration Potassium Chloride 10 meq 01/31/24 09:00 02/01/24 08:35 Potassium Chloride 10 Meq Er Tablet PO 10 meq DAILY KASIE Administration Sacubitril/Valsartan 1 tab 01/30/24 21:00 02/01/24 08:35 Sacubitril/Valsartan 24-26 Mg Tablet PO 1 tab Q12H KASIE Administration Tramadol HCl 50 mg 01/30/24 18:56 02/01/24 05:23 Tramadol Hcl (*Crx) 50 Mg Tablet PO 50 mg Q8H PRN Administration Pain Rated 6 or Greater Radiology Results: ITS Impressions Chest X-Ray 01/30/24 13:15 IMPRESSION: Cardiomegaly with cardiac decompensation and pulmonary edema. Superimposed pneumonitis is not excluded. Left lower lobe atelectasis versus pneumonia. Possibility of effusion excluded. Abdomen/Pelvis CT 01/30/24 14:48 IMPRESSION: 1. Rectal tube in expected position with mild rectal wall thickening and perirectal inflammatory stranding suggestive of mild proctitis. 2. Likely cystitis with ascending left urinary tract infection. 3. Soft tissue gas at the right breast which appears intravascular potentially intravenous related to IV catheter placement. Correlate with clinical history. 4. Recommend with chronic small pericardial effusion. 5. Likely proctitis which could related to stercoral colitis or the presence of a rectal tube. 6. Widened pubic symphysis with irregular cortical contours with gas tracking from the pubic symphysis to the urethra which is suspicious for fistulous communication and secondary chronic osteomyelitis. Chest CT 01/30/24 15:44 IMPRESSION: 1. Venous gas in anterior chest wall, likely from IV injection, likely not clinically significant. 2. Mild pulmonary edema. 3. Small pericardial effusion. 4. Cardiomegaly. 5. 6.7 cm fluid collection in right breast that is chronic, likely a seroma. Pelvis MRI 01/31/24 16:18 IMPRESSION: 1. Chronic osteomyelitis at the pubic symphysis. 2. Wall thickening of the rectosigmoid, consistent with colitis. 3. 9.3 cm fluid collection in anterior abdominal wall, likely a seroma. Labs Labs: Laboratory Results - last 24 hr 01/31/24 01/31/24 02/01/24 11:49 19:54 05:08 WBC 7.0 RBC 3.35 L Hgb 10.5 L Hct 33.5 L MCV 100.0 MCH 31.3 MCHC 31.3 L RDW 18.4 H Plt Count 200 MPV 10.4 Immature Gran % (Auto) 0.3 Neut % (Auto) 79.3 H Lymph % (Auto) 11.4 L Bennett % (Auto) 7.0 Eos % (Auto) 1.6 Baso % (Auto) 0.4 Lymph # (Auto) 0.80 L Bennett # (Auto) 0.5 Eos # (Auto) 0.1 Baso # (Auto) 0.0 Abs Immat Gran (auto) 0.02 Absolute Neuts (auto) 5.6 Absolute Nucleated RBC 0.000 Nucleated RBC % 0.0 Sodium 140 Potassium 3.5 Chloride 103 Carbon Dioxide 28 Anion Gap 9 BUN 39 H Creatinine 1.20 H Estim Creat Clear Calc 37 Estimated GFR 54 L Glucose 72 POC Capillary Glucose 115 H 229 H Calcium 8.1 L Magnesium 2.1 Total Bilirubin 0.5 AST 39 H ALT 26 Alkaline Phosphatase 52 Troponin I 0.015 C-Reactive Protein 7.2 H Total Protein 8.0 Albumin 3.3 L 02/01/24 02/01/24 06:48 07:30 WBC RBC Hgb Hct MCV MCH MCHC RDW Plt Count MPV Immature Gran % (Auto) Neut % (Auto) Lymph % (Auto) Bennett % (Auto) Eos % (Auto) Baso % (Auto) Lymph # (Auto) Bennett # (Auto) Eos # (Auto) Baso # (Auto) Abs Immat Gran (auto) Absolute Neuts (auto) Absolute Nucleated RBC Nucleated RBC % Sodium Potassium Chloride Carbon Dioxide Anion Gap BUN Creatinine Estim Creat Clear Calc Estimated GFR Glucose POC Capillary Glucose 54 L* 88 Calcium Magnesium Total Bilirubin AST ALT Alkaline Phosphatase Troponin I C-Reactive Protein Total Protein Albumin
[2024-02-01 11:47] LABS: Glucose Point of Care 58 mg/dl (65-105)
[2024-02-01] MEDS: FERROUS SULFATE 325 MG TABLET DR PO ×2 (12:03→16:43)
[2024-02-01 12:10] LABS: Glucose Point of Care 111 mg/dl (65-105)
[2024-02-01] MEDS: metroNIDAZOLE 500 MG TABLET PO ×2 (13:19→20:54)
--- NOTE | 2024-02-01 15:11 | PM.PNGS ---
Progress Note: A&P Assessment and Plan (1) Abnormal breast finding: Code(s): N64.59 - Other signs and symptoms in breast Status: Acute Assessment and Plan: Right breast ultrasound shows a chronic calcified avascular collection within the soft tissues of the right breast decreased in size compared to a chest radiograph in 2021. Radiologist is recommending no further follow-up. The patient remains asymptomatic and there are no signs of infection of this chronic-appearing fluid collection of the right breast, therefore we would not recommend any surgical intervention at this time. She does have a history of bilateral breast cancer and it is not clear if she has had any recent follow-up or mammograms at the [place] [facility] in the past few years. She should at least have a mammogram for routine screening as an outpatient if there is no recent mammograms in the last year or two in her records elsewhere. We will sign off at this time as there are no acute surgical needs. Please call with any surgical concerns. (2) Abdominal wall fluid collections: Code(s): R18.8 - Other ascites Status: Acute Assessment and Plan: The patient has a large fluid collection in the abdominal wall anterior to a previous ventral hernia repair with mesh. There does not appear to be any evidence of a recurrent hernia. She remains asymptomatic and has no tenderness on exam. The overlying skin appears healthy with no signs of infection. No indication for any surgical intervention at this time, and we would recommend just to monitor this for now. Further evaluation of this fluid collection could be considered if she developed signs of infection or became symptomatic. Plan I have discussed the patient's case and plan of care with Dr. Agustin. Subjective Subjective Date/Time Seen: 02/01/24 15:11 Patient reports: no new complaints Interval history: Patient still confused, which per family seems to be at baseline. She did not recall seeing me yesterday when I evaluated her in the IMU. She is still in the IMU and had a right breast ultrasound. No new complaints overnight. Still no pain or any complaints regarding her right breast or abdomen. Exam Const: General: comfortable and no acute distress Chest: Other: Right breast with normal nipple, but a large 6-7 cm localized area of swelling in the right upper outer quadrant of the breast that is unchanged from yesterday, no drainage, no redness of the skin in this area, and it is completely nontender. GI: Other: Abdomen is obese and nondistended with a central midline scar from previous laparotomy. There is no evidence of an incisional or recurrent hernia, but there is a large palpable firm mass in her central abdomen along the midline scar measuring 12-15 cm vertically correlating in location with the abdominal wall fluid collection noted on CT. The overlying skin appears normal and healthy with no erythema and no wounds, it is completely nontender. She has no abdominal tenderness anywhere on her abdomen. No guarding. Objective Data Vital Signs Vital Signs: Vital Signs - 24 hr 01/31/24 16:00 01/31/24 18:00 01/31/24 20:34 Temperature 98 F Pulse Rate 66 72 74 Respiratory Rate 16 Blood Pressure 126/50 L Pulse Oximetry 98 Oxygen Delivery 01/31/24 20:38 01/31/24 20:00 01/31/24 22:00 Temperature 98.6 F Pulse Rate 75 75 Respiratory Rate 20 Blood Pressure 124/80 Pulse Oximetry 100 Oxygen Delivery Room Air 01/31/24 20:00 02/01/24 00:00 02/01/24 00:25 Temperature 98.8 F Pulse Rate 74 75 Respiratory Rate 20 Blood Pressure 135/82 Pulse Oximetry 100 Oxygen Delivery Room Air 02/01/24 00:00 02/01/24 02:00 02/01/24 04:54 Temperature 98.5 F Pulse Rate 72 69 67 Respiratory Rate 20 Blood Pressure 105/54 L Pulse Oximetry 100 Oxygen Delivery 02/01/24 04:00 02/01/24 04:00 02/01/24 06:00 Temperature Pulse Rate 67 68 Respiratory Rate Blood Pressure Pulse Oximetry Oxygen Delivery Room Air 02/01/24 08:12 02/01/24 08:35 02/01/24 09:43 Temperature 98.6 F Pulse Rate 66 67 Respiratory Rate 20 Blood Pressure 113/63 Pulse Oximetry 99 98 Oxygen Delivery Room Air 02/01/24 08:00 02/01/24 08:00 02/01/24 10:00 Temperature Pulse Rate 61 63 Respiratory Rate Blood Pressure Pulse Oximetry Oxygen Delivery Room Air 02/01/24 11:18 02/01/24 12:00 02/01/24 12:00 Temperature 97.9 F Pulse Rate 64 64 Respiratory Rate 18 Blood Pressure 124/32 L Pulse Oximetry 100 Oxygen Delivery Room Air 02/01/24 14:00 Temperature Pulse Rate 66 Respiratory Rate Blood Pressure Pulse Oximetry Oxygen Delivery Intake/Output Intake/Output: Intake & Output 01/29/24 01/30/24 01/31/24 02/01/24 23:59 23:59 23:59 23:59 Intake Total 150 1070 1230 Output Total 500 3250 750 Balance -350 -2180 480 Meds/Results Medications: Active Medications Generic Name Dose Route Start Last Admin Trade Name Freq PRN Reason Stop Dose Admin Acetaminophen 650 mg 01/30/24 18:56 01/31/24 03:31 Acetaminophen 325 Mg Tablet PO 650 mg Q6H PRN Administration Pain Rated 5 or Less Atorvastatin Calcium 40 mg 01/30/24 21:00 01/31/24 20:34 Atorvastatin 40 Mg Tablet PO 40 mg HS KASIE Administration Carvedilol 6.25 mg 01/30/24 21:00 02/01/24 08:35 Carvedilol 6.25 Mg Tablet PO 6.25 mg Q12HR KASIE Administration Dextrose 12.5 gm 01/31/24 00:00 Dextrose 50% 25 Gm/50 Ml Syringe IV PUSH PRN PRN Hypoglycemia Protocol Empagliflozin 10 mg 01/31/24 09:00 02/01/24 08:35 Empagliflozin 10 Mg Tablet PO 10 mg DAILY KASIE Administration Ferrous Sulfate 325 mg 01/31/24 12:00 02/01/24 12:03 Ferrous Sulfate [address] PO 325 mg 1200,1700 KASIE Administration Furosemide 40 mg 02/01/24 09:00 02/01/24 08:35 Furosemide 40 Mg Tablet PO 40 mg BID KASIE Administration Gabapentin 300 mg 01/30/24 22:00 02/01/24 13:19 Gabapentin 300 Mg Capsule PO 300 mg Q8HR KASIE Administration Glucagon 1 mg 01/31/24 00:00 Glucagon For Inj 1 Mg Vial IM PRN PRN Hypoglycemia Protocol Glucose 15 gm 01/31/24 00:00 Glucose Oral Gel 15 Gm Of Glucse In 37.5 Gm Tube PO PRN PRN Hypoglycemia Protocol Dextrose 1,000 mls @ 100 mls/hr 01/31/24 00:00 Dextrose 5% 1,000 Ml IVPB PRN PRN Hypoglycemia Protocol Ceftriaxone Sodium 2 gm in 100 mls @ 200 mls/hr 02/01/24 09:00 02/01/24 09:10 Rocephin 2 Gm/Ns 100 Ml IVPB Infused Q24H KASIE Infusion Insulin Aspart 0 units 01/31/24 08:00 02/01/24 11:54 Insulin Aspart (*Bkc) 100 Units/Ml SUB-Q Not Given ACINSULIN [facility] Protocol Insulin Glargine 4 units 02/01/24 21:00 Insulin Glargine (*Bkc) 100 Units/Ml SUB-Q QHS [facility] Levothyroxine Sodium 100 mcg 01/31/24 06:30 02/01/24 05:22 Levothyroxine Sodium 100 Mcg Tablet PO 100 mcg DAILY@0630 KASIE Administration Metronidazole 500 mg 02/01/24 14:00 02/01/24 13:19 Metronidazole 500 Mg Tablet PO 500 mg Q8HR KASIE Administration Ondansetron HCl 4 mg 01/30/24 16:19 Ondansetron Inj 4 Mg/2 Ml Vial IV PUSH Q4H PRN Nausea Ondansetron HCl 4 mg 01/30/24 18:59 Ondansetron Inj 4 Mg/2 Ml Vial IV PUSH Q6H PRN Nausea And Vomiting Pantoprazole Sodium 20 mg 01/31/24 09:00 02/01/24 08:35 Pantoprazole Sod Sesquihydrate 20 Mg Tab PO 20 mg QAM KASIE Administration Potassium Chloride 10 meq 01/31/24 09:00 02/01/24 08:35 Potassium Chloride 10 Meq Er Tablet PO 10 meq DAILY KASIE Administration Sacubitril/Valsartan 1 tab 01/30/24 21:00 02/01/24 08:35 Sacubitril/Valsartan 24-26 Mg Tablet PO 1 tab Q12H KASIE Administration Tramadol HCl 50 mg 01/30/24 18:56 02/01/24 05:23 Tramadol Hcl (*Crx) 50 Mg Tablet PO 50 mg Q8H PRN Administration Pain Rated 6 or Greater Radiology Results: ITS Impressions Chest X-Ray 01/30/24 13:15 IMPRESSION: Cardiomegaly with cardiac decompensation and pulmonary edema. Superimposed pneumonitis is not excluded. Left lower lobe atelectasis versus pneumonia. Possibility of effusion excluded. Abdomen/Pelvis CT 01/30/24 14:48 IMPRESSION: 1. Rectal tube in expected position with mild rectal wall thickening and perirectal inflammatory stranding suggestive of mild proctitis. 2. Likely cystitis with ascending left urinary tract infection. 3. Soft tissue gas at the right breast which appears intravascular potentially intravenous related to IV catheter placement. Correlate with clinical history. 4. Recommend with chronic small pericardial effusion. 5. Likely proctitis which could related to stercoral colitis or the presence of a rectal tube. 6. Widened pubic symphysis with irregular cortical contours with gas tracking from the pubic symphysis to the urethra which is suspicious for fistulous communication and secondary chronic osteomyelitis. Chest CT 01/30/24 15:44 IMPRESSION: 1. Venous gas in anterior chest wall, likely from IV injection, likely not clinically significant. 2. Mild pulmonary edema. 3. Small pericardial effusion. 4. Cardiomegaly. 5. 6.7 cm fluid collection in right breast that is chronic, likely a seroma. Pelvis MRI 01/31/24 16:18 IMPRESSION: 1. Chronic osteomyelitis at the pubic symphysis. 2. Wall thickening of the rectosigmoid, consistent with colitis. 3. 9.3 cm fluid collection in anterior abdominal wall, likely a seroma. Breast Ultrasound 02/01/24 13:41 IMPRESSION: Chronic calcified avascular collection within the soft tissues of the right breast, decreased in size when compared with chest radiograph dated 12/05/2021, for which no further follow-up is needed. Labs Labs: Laboratory Results - last 24 hr 01/31/24 02/01/24 02/01/24 19:54 05:08 06:48 WBC 7.0 RBC 3.35 L Hgb 10.5 L Hct 33.5 L MCV 100.0 MCH 31.3 MCHC 31.3 L RDW 18.4 H Plt Count 200 MPV 10.4 Immature Gran % (Auto) 0.3 Neut % (Auto) 79.3 H Lymph % (Auto) 11.4 L [place] % (Auto) 7.0 Eos % (Auto) 1.6 Baso % (Auto) 0.4 Lymph # (Auto) 0.80 L [place] # (Auto) 0.5 Eos # (Auto) 0.1 Baso # (Auto) 0.0 Abs Immat Gran (auto) 0.02 Absolute Neuts (auto) 5.6 Absolute Nucleated RBC 0.000 Nucleated RBC % 0.0 Sodium 140 Potassium 3.5 Chloride 103 Carbon Dioxide 28 Anion Gap 9 BUN 39 H Creatinine 1.20 H Estim Creat Clear Calc 37 Estimated GFR 54 L Glucose 72 POC Capillary Glucose 229 H 54 L* Calcium 8.1 L Magnesium 2.1 Total Bilirubin 0.5 AST 39 H ALT 26 Alkaline Phosphatase 52 Troponin I 0.015 C-Reactive Protein 7.2 H Total Protein 8.0 Albumin 3.3 L 02/01/24 02/01/24 02/01/24 07:30 11:16 12:08 WBC RBC Hgb Hct MCV MCH MCHC RDW Plt Count MPV Immature Gran % (Auto) Neut % (Auto) Lymph % (Auto) [place] % (Auto) Eos % (Auto) Baso % (Auto) Lymph # (Auto) [place] # (Auto) Eos # (Auto) Baso # (Auto) Abs Immat Gran (auto) Absolute Neuts (auto) Absolute Nucleated RBC Nucleated RBC % Sodium Potassium Chloride Carbon Dioxide Anion Gap BUN Creatinine Estim Creat Clear Calc Estimated GFR Glucose POC Capillary Glucose 88 58 L* 111 H Calcium Magnesium Total Bilirubin AST ALT Alkaline Phosphatase Troponin I C-Reactive Protein Total Protein Albumin
[2024-02-01 16:22] LABS: Glucose Point of Care 85 mg/dl (65-105)
[2024-02-01] MEDS: MEROPENEM 1 GM/NS 100 ML 1 GM/100 ML BAG IVPB (16:43)
--- NOTE | 2024-02-01 16:53 | P.CONUR_ITS ---
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 She has a very poor historian. She has multiple comorbidities including acute problems with fluid collections around and old mesh hernia repair and in her breast. 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 The patient reports being continent at home but nurses report otherwise. She currently has an indwelling Kaplan catheter that was placed in the ER. Patient reports mild dysuria but no recent history of recurrent urinary tract infections. Again her history is unreliable. Review of Systems Review of Systems: ROS unobtainable: Yes unobtainable due to mental status [facility] Past Medical History Medical History (Updated 02/01/24 @ 16:55 by Kenny Dick MD) Anemia Combined systolic and diastolic congestive heart failure echocardiogram 12/06/2021: Severely reduced right ventricular systolic function with EF of 20-25%, moderate left ventricular chamber enlargement, moderate left atrial enlargement, grade 2 diastolic dysfunction Dementia Dyslipidemia Encephalopathy acute GERD (gastroesophageal reflux disease) History of breast cancer HTN (hypertension) Hyperlipidemia Neuropathy Non-STEMI (non-ST elevated myocardial infarction) Peripheral vascular disease Psychiatric disorder Thyroid cancer Type 2 diabetes mellitus with hyperglycemia Surgical History Surgical History History of lumpectomy of left breast History of right breast implant Patient reports that it was radiation implant History of thyroid surgery S/P AKA (above knee amputation) bilateral Family History Family History Mother Family history of type 2 diabetes mellitus, Onset Age: 55 Father Acute myocardial infarction, Onset Age: 58 Social History Social History Social History: The patient has advanced directive paperwork from the group home that states she is a DNR. However the patient's family members that were in the ER stated that they wanted the patient to be a full code. The patient herself wishes to be a DNR/DNI. Patient is mildly confused but is seemed to be having capacity and understands consequences. Smoking status: Unknown if ever smoked Second hand tobacco smoke exposure: No Alcohol intake: never Substance use: never Substance use type: does not use Do You Feel Safe in your Home?: Yes Lack of Transportation: No Lack of Food: Never True Current Housing: I Have Housing Concerned About Future Housing: No Difficulty Paying Gas/Electric Bills: No Difficulty Paying for Meds: No Currently Unemployed: No Education: Decline to Answer Difficulty w/ Childcare or Family Care: No Spiritual care concerns: No Meds Home Medications and Allergies Home Medications Medication Instructions Recorded Confirmed Type acetaminophen 325 mg capsule 650 mg PO Q6H PRN Pain (Scale 12/05/21 01/30/24 History (Tylenol) Score 1-3) atorvastatin 40 mg tablet 40 mg PO HS 12/05/21 01/30/24 History bisacodyl 10 mg rectal suppository 10 mg RECTAL PRN PRN Constipation 12/05/21 01/30/24 History insulin aspart U-100 100 unit/mL See Rx Instructions .Route .COMPLEX 12/05/21 01/30/24 History subcutaneous solution (Novolog U-100 Insulin aspart) levothyroxine 100 mcg tablet 100 mcg PO DAILY 12/05/21 01/30/24 History ondansetron HCl 4 mg tablet 4 mg PO Q8H PRN Nausea 12/05/21 01/30/24 History empagliflozin 10 mg tablet 10 mg PO DAILY 1 month #30 tabs 12/08/21 01/30/24 Rx (Jardiance) gabapentin 300 mg capsule 300 mg PO TID 05/16/22 01/30/24 History omeprazole 20 mg capsule,delayed 20 mg PO DAILY 05/16/22 01/30/24 History release potassium chloride 10 mEq 10 meq PO DAILY 05/16/22 01/30/24 History capsule,extended release Lantus U-100 Insulin 8 unit subcut QHS 01/10/24 01/30/24 History furosemide 40 mg tablet (Lasix) 40 mg PO DAILY 01/10/24 01/30/24 History carvedilol 6.25 mg tablet (Coreg) 6.25 mg PO BID 01/30/24 01/30/24 History ferrous sulfate 325 mg (65 mg 325 mg PO DAILY PRN anemia 01/30/24 01/30/24 History iron) tablet magnesium citrate (Citroma oral 296 ml PO DAILY PRN Constipation 01/30/24 01/30/24 History solution) magnesium hydroxide 400 mg/5 mL 30 ml PO HS PRN CONSTIPATION 01/30/24 01/30/24 History oral suspension (Milk of Magnesia) naloxone 4 mg/actuation nasal spray 1 spray intranasal Q2M PRN OPIOD 01/30/24 History OVERDOSE sacubitril 24 mg-valsartan 26 mg 1 tablet PO Q12H 01/30/24 01/30/24 History tablet (Entresto) sodium phosphates 19 gram-7 118 ml RECTAL PRN PRN constipation 01/30/24 01/30/24 History gram/118 mL enema (Fleet Enema) tramadol 50 mg tablet 50 mg PO Q8H PRN pain 01/30/24 01/30/24 History Allergies Allergy/AdvReac Type Severity Reaction Status Date / Time codeine Allergy Unknown Verified 01/30/24 15:44 Vital Signs Vital Signs - 24 hr 01/31/24 18:00 01/31/24 20:34 01/31/24 20:38 Temperature 98.6 F Pulse Rate 72 74 75 Respiratory Rate 20 Blood Pressure 124/80 Pulse Oximetry 100 Oxygen Delivery 01/31/24 20:00 01/31/24 22:00 01/31/24 20:00 Temperature Pulse Rate 75 74 Respiratory Rate Blood Pressure Pulse Oximetry Oxygen Delivery Room Air 02/01/24 00:00 02/01/24 00:25 02/01/24 00:00 Temperature 98.8 F Pulse Rate 75 72 Respiratory Rate 20 Blood Pressure 135/82 Pulse Oximetry 100 Oxygen Delivery Room Air 02/01/24 02:00 02/01/24 04:54 02/01/24 04:00 Temperature 98.5 F Pulse Rate 69 67 67 Respiratory Rate 20 Blood Pressure 105/54 L Pulse Oximetry 100 Oxygen Delivery 02/01/24 04:00 02/01/24 06:00 02/01/24 08:12 Temperature 98.6 F Pulse Rate 68 66 Respiratory Rate 20 Blood Pressure 113/63 Pulse Oximetry 99 Oxygen Delivery Room Air 02/01/24 08:35 02/01/24 09:43 02/01/24 08:00 Temperature Pulse Rate 67 Respiratory Rate Blood Pressure Pulse Oximetry 98 Oxygen Delivery Room Air Room Air 02/01/24 08:00 02/01/24 10:00 02/01/24 11:18 Temperature 97.9 F Pulse Rate 61 63 64 Respiratory Rate 18 Blood Pressure 124/32 L Pulse Oximetry 100 Oxygen Delivery 02/01/24 12:00 02/01/24 12:00 02/01/24 14:00 Temperature Pulse Rate 64 66 Respiratory Rate Blood Pressure Pulse Oximetry Oxygen Delivery Room Air 02/01/24 15:22 Temperature 97.8 F Pulse Rate 64 Respiratory Rate 18 Blood Pressure 130/65 Pulse Oximetry 100 Oxygen Delivery Exam Const: General: no acute distress Resp: Effort & Inspection: normal respiratory effort GI: Inspection: non-distended GI Palp: No abdominal tenderness and No Guarding due to palpation present (GI) Auscultation: normal bowel sounds Urinary Catheter: Urinary Catheter: patent and draining and urine clear Results Labs 02/01/24 05:08 02/01/24 05:08 Labs: Short CBC 02/01/24 Range/Units 05:08 WBC 7.0 (4.5-10.0) K/mm3 Hgb 10.5 L (12.0-15.0) g/dL Hct 33.5 L (37.0-47.0) % Plt Count 200 (150-375) k/mm3 BMP 02/01/24 05:08 Sodium 140 Potassium 3.5 Chloride 103 Carbon Dioxide 28 BUN 39 H Creatinine 1.20 H Glucose 72 Calcium 8.1 L Cardiac Enzymes 02/01/24 Range/Units 05:08 Troponin I 0.015 (0.000-0.034) ng/mL Liver Function 02/01/24 Range/Units 05:08 Total Bilirubin 0.5 (0.2-1.3) mg/dL AST 39 H (14-36) U/L ALT 26 (6-35) U/L Alkaline Phosphatase 52 (38-126) U/L Albumin 3.3 L (3.5-5.1) g/dL
[2024-02-01 20:09] LABS: Glucose Point of Care 148 mg/dl (65-105)
[2024-02-01] MEDS: HEPARIN SODIUM 5,000 UNITS/ML VIAL 5000 UNITS SUB-Q (20:52)
[2024-02-01] MEDS: INSULIN GLARGINE (*BKC) 100 UNITS/ML SUB-Q (20:52)
[2024-02-01] MEDS: ATORVASTATIN 40 MG TABLET PO (20:54)
[2024-02-02] VITALS (14 sets, daily range): BP systolic 102–154; BP diastolic 46–73; PULSE 57–75; RESP 16–22; TEMP 36–36.4; O2SAT 96–100
[2024-02-02] MEDS: MEROPENEM 1 GM/NS 100 ML 1 GM/100 ML BAG IVPB ×2 (05:38→21:40)
[2024-02-02] MEDS: GABAPENTIN 300 MG CAPSULE PO ×3 (05:38→21:25)
[2024-02-02] MEDS: LEVOTHYROXINE SODIUM 100 MCG TABLET PO (05:38)
[2024-02-02] MEDS: metroNIDAZOLE 500 MG TABLET PO ×3 (05:39→21:25)
[2024-02-02] MEDS: DEXTROSE 50% 25 GM/50 ML SYRINGE IV PUSH (08:55)
--- NOTE | 2024-02-02 09:01 | PC.NURSE ---
0820: Drowsy, BG 42, 4 oz of juice given. 0845: BG rechecked 43 - 25 ml of D50 given. Continues to be drowsy but is arousable to physical stimuli.
[2024-02-02 09:10] LABS: Basophils Percent Auto 0.5 % (0.2-1.2); Eosinophils Absolute Auto 0.2 K/mm3 (0-0.3); Eosinophils Percent Auto 2.8 % (0-4.4); Hematocrit 31.2 % (37.0-47.0); Hemoglobin 9.7 g/dL (12.0-15.0); Immature Granulocyte Absolute 0.02 K/mm3 (0.00-0.031); Immature Granulocyte Percent A 0.4 % (0-0.5); Lymphocytes Absolute Auto 0.74 K/mm3 (0.9-3.2); Lymphocytes Percent Auto 13.1 % (18.3-44.2); Mean Corpuscular HGB Conc 31.1 g/dl (32-36); Mean Corpuscular Hemoglobin 30.7 pg (26-34); Mean Corpuscular Volume 98.7 fl (80-100); Monocytes Absolute Auto 0.4 K/mm3 (0.1-0.6); Monocytes Percent Auto 6.2 % (2.6-8.5); Neutrophils Absolute Auto 4.4 K/mm3 (1.3-6.7); Platelet Count Result 184 k/mm3 (150-375); Red Blood Count 3.16 M/mm3 (4.2-5.4); Red Cell Distribution Width 17.9 % (11.5-14.5); White Blood Count 5.7 K/mm3 (4.5-10.0)
[2024-02-02] MEDS: HEPARIN SODIUM 5,000 UNITS/ML VIAL 5000 UNITS SUB-Q ×2 (09:21→21:25)
[2024-02-02] MEDS: PANTOPRAZOLE SOD SESQUIHYDRATE 20 MG TAB PO (09:22)
[2024-02-02] MEDS: POTASSIUM CHLORIDE 10 MEQ ER TABLET PO (09:22)
[2024-02-02 09:23] LABS: Alanine Aminotransferase 20 U/L (6-35); Albumin Level 2.8 g/dL (3.5-5.1); Alkaline Phosphatase 46 U/L (38-126); Anion Gap 6 mmol/L (4-12); Aspartate Amino Transferase 28 U/L (14-36); Bilirubin,Total 0.5 mg/dL (0.2-1.3); Blood Urea Nitrogen 34 mg/dL (7-17); CRP 5.1 mg/dL (<1.0); Calcium 7.6 mg/dL (8.4-10.2); Carbon Dioxide 27 mmol/L (22-30); Chloride 103 mmol/L (98-107); Estimated CRCL calculation 44 ml/min; Estimated Glomerular Filt Rate > 60; Glucose 188 mg/dL (65-110); Magnesium 1.8 mg/dL (1.6-2.3); Potassium 3.4 mmol/L (3.4-5.0); Sodium 136 mmol/L (137-145)
[2024-02-02 10:27] LABS: Glucose Point of Care 106 mg/dl (65-105)
[2024-02-02 10:27] LABS: Glucose Point of Care 125 mg/dl (65-105)
[2024-02-02 10:27] LABS: Glucose Point of Care 43 mg/dl (65-105)
[2024-02-02 10:27] LABS: Glucose Point of Care 42 mg/dl (65-105)
[2024-02-02] MEDS: FUROSEMIDE 40 MG TABLET PO ×2 (12:09→16:34)
[2024-02-02] MEDS: FERROUS SULFATE 325 MG TABLET DR PO ×2 (12:09→16:34)
[2024-02-02] MEDS: carvediloL 6.25 MG TABLET PO ×2 (12:09→21:25)
[2024-02-02] MEDS: SACUBITRIL/VALSARTAN 24-26 MG TABLET 1 TAB PO ×2 (12:09→21:25)
[2024-02-02] MEDS: ACETAMINOPHEN 325 MG TABLET 650 MG PO (13:13)
[2024-02-02 15:00] LABS: Glucose Point of Care 93 mg/dl (65-105)
[2024-02-02 15:00] LABS: Glucose Point of Care 119 mg/dl (65-105)
[2024-02-02 16:48] LABS: Glucose Point of Care 182 mg/dl (65-105)
--- NOTE | 2024-02-02 19:16 | P.PNIM_ITS ---
Progress Note: A&P Assessment and Plan (1) Combined systolic and diastolic congestive heart failure: Qualifiers: Heart failure chronicity: acute on chronic Qualified Code(s): I50.43 - Acute on chronic combined systolic (congestive) and diastolic (congestive) heart failure Code(s): I50.40 - Unspecified combined systolic (congestive) and diastolic (congestive) heart failure Status: Acute Assessment and Plan: Patient here for AMS probably multifactorial from UTI, hypoglycemia Imaging showing pulmonary edema on imaging EKG showing NSR with first degree AVB, LAD, age indeterminate anteroseptal infarct and ST-T wave changes in the high lateral leads. Troponin elevated to 0.043 but normal on repeat ER placed Kaplan cath and started IV Lasix 40 mg BID Echo with severe global LV systolic dysfunction (25-30% EF), Grade 3-4 diastolic dysfunction, elevated LAP, mild RV enlargement with hypokinesis, mild MR, mild and AI, mild pHTN (41 RVSP) and mild-mod pericardial effusion but no tamponade. (Echo EF 20-25% in 2021) UOP good with negative fluid balance. Continue home medications including Entresto and Coreg. Add Spironolactone. Empagliflozin on hold due to hypoglycemia On room air. Lasix changed to oral Monitor renal fxn, BP (2) Acute UTI: Code(s): N39.0 - Urinary tract infection, site not specified Status: Acute Assessment and Plan: UA is consistent with UTI. UCx collected. Rocephin started. UCx growing ESBL EColi with 10-49K colonies. CT scan showing mild bilateral renal cortical atrophy. Gas and a Kaplan catheter within the decompressed bladder. There is wall thickening of the bladder and mild stranding in the immediately surrounding fat suspicious for cystitis which could be either acute or chronic. There is gas within the left ureter, renal pelvis and calyces with peripheral enhancing urothelium suspicious for ascending UTI. There are some gas beginning in the urethra alongside the Kaplan catheter which extends anteriorly into the region of the widened pubic symphysis suggesting fistulous communication to the urethra. Pelvic MRI showing chronic osteomyelitis at the pubic symphysis. Rocephin changed to meropenem. Urology consulted and recommendations reviewed. Plan for halfway Kaplan. Small colony count but will need to treat this since she could have an ascending UTI and fistula. No plans for surgical repair of fistula. Place PICC line (3) Colitis: Code(s): K52.9 - Noninfective gastroenteritis and colitis, unspecified Status: Acute Assessment and Plan: Patient with diarrhea. CT showing mild rectal wall thickening and perirectal inflammatory stranding consistent with mild proctitis. Fecal containment system placed but stool output declining so this has since been removed Stool is negative for C diff. Stool cx negative to date Resolving Continue Flagyl and meropenem. (4) Acute kidney injury: Code(s): N17.9 - Acute kidney failure, unspecified Status: Acute Assessment and Plan: Labs show Cr 1.2, BUN 44 and eGFR 54, with usual baseline Cr 0.7-0.9 and eGFR >60 CT Abd/Pelvis was with contrast. ABDIRASHID related to UTI, chronic infection, poor renal perfusion from low EF and/or ATN. Cr slightly worsen with diuresis for fluid overload in CHF exacerbation with Cr 1.2, BUN 39 and CrCl 37 Changed to oral Lasix. Cr better at 1. Monitor renal function, electrolytes and UOP (5) Osteomyelitis: Code(s): M86.9 - Osteomyelitis, unspecified Status: Acute Assessment and Plan: CT scan showing a widened pubic symphysis with irregular cortical contours with gas tracking from the pubic symphysis to the urethra which is suspicious for fistulous communication and secondary chronic osteomyelitis. Pelvic MR showing chronic osteomyelitis at the pubic symphysis WBC normal. UCx growing ESBL Ecoli. BCx NGTD. CRP trending down Treece to be chronic but with fistulous tract to the urethra. Continue abx as above. (6) Type 2 diabetes mellitus with hyperglycemia: Code(s): E11.65 - Type 2 diabetes mellitus with hyperglycemia Status: Acute Assessment and Plan: Recent A1c 7.5. The patient's blood glucose was reviewed on 02/01 Glucose dropped to 42 this morning. Continue AccuCheks covering with sliding scale. Hypoglycemia protocol available as needed. Continue to monitor. Stop Lantus and hold Empagliflozin. Treece related to patient not eating much. Change to regular diet (7) HTN (hypertension): Qualifiers: Hypertension type: unspecified Qualified Code(s): I10 - Essential (primary) hypertension Code(s): I10 - Essential (primary) hypertension Status: Chronic Assessment and Plan: Patient's blood pressure was reviewed on 02/01 Blood pressure remains well controlled. Will continue current medications. (8) Abdominal wall fluid collections: Code(s): R18.8 - Other ascites Status: Acute Assessment and Plan: She has a partially rim calcified loculated subcutaneous fluid collection superficial to the mesh repair which measures 14.7 x 10.1 x 7.2 cm maximal transaxial dimensions. CT scan from 2022 measured it as 15.3 x 8.9 x 6.5 cm rim calcified fluid collection so appears slightly larger. Treece to be chronic. (9) Abnormal breast finding: Code(s): N64.59 - Other signs and symptoms in breast Status: Acute Assessment and Plan: She has a 6.7 cm fluid collection in right breast that is chronic, likely a seroma noted by imaging. US showing chronic fluid collection that is smaller from 2021 Treece to be chronic. (10) S/P AKA (above knee amputation) bilateral: Code(s): Z89.611 - Acquired absence of right leg above knee; Z89.612 - Acquired absence of left leg above knee Status: Acute Assessment and Plan: Due to DM. Frequent turing. (11) Abnormal CT of the abdomen: Code(s): R93.5 - Abnormal findings on diagnostic imaging of other abdominal regions, including retroperitoneum Status: Acute Assessment and Plan: As above Plan DVT prophylaxis - no SCDs since she is s/p bilateral AKA; HH stable so heparin added Code status - full Subjective Date/time seen: 02/02/24 19:16 Interval history: 69yo female with dementia, CHF, HTN, CAD and DM here for altered mental status. Patient with episdoes of hypoglycemia again. No further diarrhea. Not eating much. Exam Narrative: AF 97.4 154/66 71 22 100% ra Gen - NARD Chest -lungs clear anteriorly. right lateral breast mass w/o change CV - RRR S1/S2. Telemetry showing PVCs Abd - Soft, obese, NT. Palm sized firm mass midline abdomen w/o change. Some flank edema - Kaplan secured draining clear yellow urine. Ext - bilateral AKA Neuro - sleepy but arouses easily. Skin - Warm and dry Objective Data Vital Signs Vital Signs: Vital Signs - 24 hr 02/01/24 20:00 02/01/24 20:00 02/01/24 20:54 Temperature 98 F Pulse Rate 67 60 Respiratory Rate 18 Blood Pressure 147/82 H Pulse Oximetry 99 Oxygen Delivery Room Air 02/01/24 20:00 02/01/24 22:00 02/01/24 23:49 Temperature 97.5 F L Pulse Rate 61 60 66 Respiratory Rate 16 Blood Pressure 131/79 Pulse Oximetry 100 Oxygen Delivery 02/02/24 00:00 02/02/24 00:00 02/02/24 02:00 Temperature Pulse Rate 65 64 Respiratory Rate Blood Pressure Pulse Oximetry Oxygen Delivery Room Air 02/02/24 04:00 02/02/24 04:00 02/02/24 04:00 Temperature 97.3 F L Pulse Rate 68 68 Respiratory Rate 16 Blood Pressure 147/71 H Pulse Oximetry 100 Oxygen Delivery Room Air 02/02/24 06:00 02/02/24 08:00 02/02/24 08:00 Temperature 96.8 F L Pulse Rate 68 60 58 L Respiratory Rate 20 Blood Pressure 102/46 L Pulse Oximetry 96 Oxygen Delivery 02/02/24 10:00 02/02/24 12:09 02/02/24 12:00 Temperature 97.4 F L Pulse Rate 57 L 68 62 Respiratory Rate 16 Blood Pressure 113/59 L Pulse Oximetry 99 Oxygen Delivery 02/02/24 08:00 02/02/24 12:00 02/02/24 16:00 Temperature 97.4 F L Pulse Rate 71 Respiratory Rate 22 H Blood Pressure 154/66 H Pulse Oximetry 99 100 Oxygen Delivery Room Air Room Air Intake/Output Intake/Output: Intake & Output 01/30/24 01/31/24 02/01/24 02/02/24 23:59 23:59 23:59 23:59 Intake Total 150 1070 1820 750 Output Total 500 3250 1200 2000 Balance -350 2180 711 -6093 Meds/Results Medications: Active Medications Generic Name Dose Route Start Last Admin Trade Name Freq PRN Reason Stop Dose Admin Acetaminophen 650 mg 01/30/24 18:56 02/02/24 13:13 Acetaminophen 325 Mg Tablet PO 650 mg Q6H PRN Administration Pain Rated 5 or Less Atorvastatin Calcium 40 mg 01/30/24 21:00 02/01/24 20:54 Atorvastatin 40 Mg Tablet PO 40 mg HS KASIE Administration Carvedilol 6.25 mg 01/30/24 21:00 11/22/24 12:09 Carvedilol 6.25 Mg Tablet PO 6.25 mg Q12HR KASIE Administration Dextrose 12.5 gm 01/31/24 00:00 02/02/24 08:55 Dextrose 50% 25 Gm/50 Ml Syringe IV PUSH 12.5 gm PRN PRN Administration Hypoglycemia Protocol Empagliflozin 10 mg 01/31/24 09:00 02/02/24 12:08 Empagliflozin 10 Mg Tablet PO Not Given DAILY KASIE Ferrous Sulfate 325 mg 01/31/24 12:00 02/02/24 16:34 Ferrous Sulfate [address] PO 325 mg 1200,1700 KASIE Administration Furosemide 40 mg 02/01/24 09:00 02/02/24 16:34 Furosemide 40 Mg Tablet PO 40 mg BID KASIE Administration Gabapentin 300 mg 01/30/24 22:00 02/02/24 13:38 Gabapentin 300 Mg Capsule PO 300 mg Q8HR KASIE Administration Glucagon 1 mg 01/31/24 00:00 Glucagon For Inj 1 Mg Vial IM PRN PRN Hypoglycemia Protocol Glucose 15 gm 01/31/24 00:00 Glucose Oral Gel 15 Gm Of Glucse In 37.5 Gm Tube PO PRN PRN Hypoglycemia Protocol Heparin Sodium (Porcine) 5,000 units 02/01/24 21:00 02/02/24 09:21 Heparin Sodium 5,000 Units/Ml Vial SUB-Q 5,000 units Q12HR KASIE Administration Dextrose 1,000 mls @ 100 mls/hr 01/31/24 00:00 Dextrose 5% 1,000 Ml IVPB PRN PRN Hypoglycemia Protocol Meropenem 1 gm in 100 mls @ 200 mls/hr 02/01/24 16:00 02/02/24 16:33 IVPB 200 mls/hr 0500,1700 KASIE Administration Insulin Aspart 0 units 01/31/24 08:00 02/02/24 17:16 Insulin Aspart (*Bkc) 100 Units/Ml SUB-Q Not Given ACINSULIN KASIE Protocol Levothyroxine Sodium 100 mcg 01/31/24 06:30 02/02/24 05:38 Levothyroxine Sodium 100 Mcg Tablet PO 100 mcg DAILY@0630 KASIE Administration Metronidazole 500 mg 02/01/24 14:00 02/02/24 13:38 Metronidazole 500 Mg Tablet PO 500 mg Q8HR KASIE Administration Ondansetron HCl 4 mg 01/30/24 18:59 Ondansetron Inj 4 Mg/2 Ml Vial IV PUSH Q6H PRN Nausea And Vomiting Pantoprazole Sodium 20 mg 01/31/24 09:00 02/02/24 09:22 Pantoprazole Sod Sesquihydrate 20 Mg Tab PO 20 mg QAM KASIE Administration Potassium Chloride 10 meq 01/31/24 09:00 02/02/24 09:22 Potassium Chloride 10 Meq Er Tablet PO 10 meq DAILY KASIE Administration Sacubitril/Valsartan 1 tab 01/30/24 21:00 02/02/24 12:09 Sacubitril/Valsartan 24-26 Mg Tablet PO 1 tab Q12H KASIE Administration Tramadol HCl 50 mg 01/30/24 18:56 02/01/24 05:23 Tramadol Hcl (*Crx) 50 Mg Tablet PO 50 mg Q8H PRN Administration Pain Rated 6 or Greater Radiology Results: ITS Impressions Chest X-Ray 01/30/24 13:15 IMPRESSION: Cardiomegaly with cardiac decompensation and pulmonary edema. Superimposed pneumonitis is not excluded. Left lower lobe atelectasis versus pneumonia. Possibility of effusion excluded. Abdomen/Pelvis CT 01/30/24 14:48 IMPRESSION: 1. Rectal tube in expected position with mild rectal wall thickening and perirectal inflammatory stranding suggestive of mild proctitis. 2. Likely cystitis with ascending left urinary tract infection. 3. Soft tissue gas at the right breast which appears intravascular potentially intravenous related to IV catheter placement. Correlate with clinical history. 4. Recommend with chronic small pericardial effusion. 5. Likely proctitis which could related to stercoral colitis or the presence of a rectal tube. 6. Widened pubic symphysis with irregular cortical contours with gas tracking from the pubic symphysis to the urethra which is suspicious for fistulous communication and secondary chronic osteomyelitis. Chest CT 01/30/24 15:44 IMPRESSION: 1. Venous gas in anterior chest wall, likely from IV injection, likely not clinically significant. 2. Mild pulmonary edema. 3. Small pericardial effusion. 4. Cardiomegaly. 5. 6.7 cm fluid collection in right breast that is chronic, likely a seroma. Pelvis MRI 01/31/24 16:18 IMPRESSION: 1. Chronic osteomyelitis at the pubic symphysis. 2. Wall thickening of the rectosigmoid, consistent with colitis. 3. 9.3 cm fluid collection in anterior abdominal wall, likely a seroma. Breast Ultrasound 02/01/24 13:41 IMPRESSION: Chronic calcified avascular collection within the soft tissues of the right breast, decreased in size when compared with chest radiograph dated 12/05/2021, for which no further follow-up is needed. Labs Labs: Laboratory Results - last 24 hr 02/01/24 02/02/24 02/02/24 20:03 08:15 08:53 WBC RBC Hgb Hct MCV MCH MCHC RDW Plt Count MPV Immature Gran % (Auto) Neut % (Auto) Lymph % (Auto) Dickey % (Auto) Eos % (Auto) Baso % (Auto) Lymph # (Auto) Dickey # (Auto) Eos # (Auto) Baso # (Auto) Abs Immat Gran (auto) Absolute Neuts (auto) Absolute Nucleated RBC Nucleated RBC % Sodium Potassium Chloride Carbon Dioxide Anion Gap BUN Creatinine Estim Creat Clear Calc Estimated GFR Glucose POC Capillary Glucose 148 H 42 L* 43 L* Calcium Magnesium Total Bilirubin AST ALT Alkaline Phosphatase C-Reactive Protein Total Protein Albumin 02/02/24 02/02/24 02/02/24 09:02 09:17 10:24 WBC 5.7 RBC 3.16 L Hgb 9.7 L Hct 31.2 L MCV 98.7 MCH 30.7 MCHC 31.1 L RDW 17.9 H Plt Count 184 MPV 10.0 Immature Gran % (Auto) 0.4 Neut % (Auto) 77.0 H Lymph % (Auto) 13.1 L Dickey % (Auto) 6.2 Eos % (Auto) 2.8 Baso % (Auto) 0.5 Lymph # (Auto) 0.74 L Dickey # (Auto) 0.4 Eos # (Auto) 0.2 Baso # (Auto) 0.0 Abs Immat Gran (auto) 0.02 Absolute Neuts (auto) 4.4 Absolute Nucleated RBC 0.000 Nucleated RBC % 0.0 Sodium 136 L Potassium 3.4 Chloride 103 Carbon Dioxide 27 Anion Gap 6 BUN 34 H Creatinine 1.00 Estim Creat Clear Calc 44 Estimated GFR > 60 Glucose 188 H POC Capillary Glucose 125 H 106 H Calcium 7.6 L Magnesium 1.8 Total Bilirubin 0.5 AST 28 ALT 20 Alkaline Phosphatase 46 C-Reactive Protein 5.1 H Total Protein 7.0 Albumin 2.8 L 02/02/24 02/02/24 02/02/24 12:04 13:27 15:55 WBC RBC Hgb Hct MCV MCH MCHC RDW Plt Count MPV Immature Gran % (Auto) Neut % (Auto) Lymph % (Auto) Dickey % (Auto) Eos % (Auto) Baso % (Auto) Lymph # (Auto) Dickey # (Auto) Eos # (Auto) Baso # (Auto) Abs Immat Gran (auto) Absolute Neuts (auto) Absolute Nucleated RBC Nucleated RBC % Sodium Potassium Chloride Carbon Dioxide Anion Gap BUN Creatinine Estim Creat Clear Calc Estimated GFR Glucose POC Capillary Glucose 93 119 H 182 H Calcium Magnesium Total Bilirubin AST ALT Alkaline Phosphatase C-Reactive Protein Total Protein Albumin
[2024-02-02 19:58] LABS: Glucose Point of Care 178 mg/dl (65-105)
[2024-02-02] MEDS: ATORVASTATIN 40 MG TABLET PO (21:25)
[2024-02-02] MEDS: POTASSIUM CHLORIDE 20 MEQ ER TABLET PO (21:25)
[2024-02-03] VITALS (15 sets, daily range): BP systolic 114–153; BP diastolic 34–74; PULSE 66–82; RESP 14–20; TEMP 36.4–37.1; O2SAT 93–100
[2024-02-03 04:58] LABS: Basophils Percent Auto 0.6 % (0.2-1.2); Eosinophils Absolute Auto 0.2 K/mm3 (0-0.3); Eosinophils Percent Auto 3.6 % (0-4.4); Hematocrit 34.4 % (37.0-47.0); Hemoglobin 10.8 g/dL (12.0-15.0); Immature Granulocyte Absolute 0.01 K/mm3 (0.00-0.031); Immature Granulocyte Percent A 0.2 % (0-0.5); Lymphocytes Absolute Auto 0.73 K/mm3 (0.9-3.2); Lymphocytes Percent Auto 14.8 % (18.3-44.2); Mean Corpuscular HGB Conc 31.4 g/dl (32-36); Mean Corpuscular Hemoglobin 30.6 pg (26-34); Mean Corpuscular Volume 97.5 fl (80-100); Mean Platelet Volume 10.1 fl (7.4-10.4); Monocytes Absolute Auto 0.3 K/mm3 (0.1-0.6); Monocytes Percent Auto 5.7 % (2.6-8.5); Neutrophils Absolute Auto 3.7 K/mm3 (1.3-6.7); Neutrophils Percent Auto 75.1 % (45.5-73.1); Platelet Count Result 212 k/mm3 (150-375); Red Blood Count 3.53 M/mm3 (4.2-5.4); Red Cell Distribution Width 17.6 % (11.5-14.5); White Blood Count 4.9 K/mm3 (4.5-10.0)
[2024-02-03 05:08] LABS: Anion Gap 6 mmol/L (4-12); Blood Urea Nitrogen 29 mg/dL (7-17); CRP 4.9 mg/dL (<1.0); Calcium 8.1 mg/dL (8.4-10.2); Carbon Dioxide 28 mmol/L (22-30); Chloride 105 mmol/L (98-107); Estimated CRCL calculation 44 ml/min; Estimated Glomerular Filt Rate > 60; Glucose 195 mg/dL (65-110); Magnesium 1.9 mg/dL (1.6-2.3); Phosphorus 3.5 mg/dL (2.5-4.5); Potassium 3.9 mmol/L (3.4-5.0); Sodium 139 mmol/L (137-145)
[2024-02-03] MEDS: MEROPENEM 1 GM/NS 100 ML 1 GM/100 ML BAG IVPB ×2 (05:55→16:57)
[2024-02-03] MEDS: LEVOTHYROXINE SODIUM 100 MCG TABLET PO (05:56)
[2024-02-03] MEDS: GABAPENTIN 300 MG CAPSULE PO ×3 (05:56→21:02)
[2024-02-03] MEDS: metroNIDAZOLE 500 MG TABLET PO ×3 (05:56→21:02)
[2024-02-03 08:24] LABS: Glucose Point of Care 189 mg/dl (65-105)
[2024-02-03] MEDS: LIDOCAINE HCL 1% PF INJ 5 ML VIAL INFILTRATE (09:10)
[2024-02-03] MEDS: PANTOPRAZOLE SOD SESQUIHYDRATE 20 MG TAB PO (10:30)
[2024-02-03] MEDS: SACUBITRIL/VALSARTAN 24-26 MG TABLET 1 TAB PO ×2 (10:30→21:02)
[2024-02-03] MEDS: FUROSEMIDE 40 MG TABLET PO ×2 (10:30→16:48)
[2024-02-03] MEDS: HEPARIN SODIUM 5,000 UNITS/ML VIAL 5000 UNITS SUB-Q ×2 (10:30→21:03)
[2024-02-03] MEDS: POTASSIUM CHLORIDE 10 MEQ ER TABLET PO (10:30)
[2024-02-03] MEDS: carvediloL 6.25 MG TABLET PO ×2 (10:30→21:03)
[2024-02-03 12:21] LABS: Glucose Point of Care 234 mg/dl (65-105)
[2024-02-03] MEDS: INSULIN ASPART (*BKC) 100 UNITS/ML SUB-Q ×2 (13:01→16:45)
[2024-02-03] MEDS: FERROUS SULFATE 325 MG TABLET DR PO ×2 (13:02→16:48)
[2024-02-03] MEDS: CENTRAL LINE FLUSH 10 ML IV PUSH ×2 (13:02→21:03)
[2024-02-03 13:37] LABS: Glucose Point of Care 282 mg/dl (65-105)
[2024-02-03 16:34] LABS: Glucose Point of Care 217 mg/dl (65-105)
--- NOTE | 2024-02-03 17:08 | P.PNIM_ITS ---
Progress Note: A&P Assessment and Plan (1) Combined systolic and diastolic congestive heart failure: Qualifiers: Heart failure chronicity: acute on chronic Qualified Code(s): I50.43 - Acute on chronic combined systolic (congestive) and diastolic (congestive) heart failure Code(s): I50.40 - Unspecified combined systolic (congestive) and diastolic (congestive) heart failure Status: Acute Assessment and Plan: Patient here for AMS probably multifactorial from UTI, hypoglycemia Imaging showing pulmonary edema on imaging EKG showing NSR with first degree AVB, LAD, age indeterminate anteroseptal infarct and ST-T wave changes in the high lateral leads. Troponin elevated to 0.043 but normal on repeat ER placed Kaplan cath and started IV Lasix 40 mg BID Echo with severe global LV systolic dysfunction (25-30% EF), Grade 3-4 diastolic dysfunction, elevated LAP, mild RV enlargement with hypokinesis, mild MR, mild and AI, mild pHTN (41 RVSP) and mild-mod pericardial effusion but no tamponade. (Echo EF 20-25% in 2021) UOP good with negative fluid balance (-4.6L). Continue home medications including Entresto and Coreg. Held off on Spironolactone since BP soft. Empagliflozin on hold due to hypoglycemia On room air. Lasix changed to oral and dose advanced. Monitor renal fxn, BP (2) Acute UTI: Code(s): N39.0 - Urinary tract infection, site not specified Status: Acute Assessment and Plan: UA is consistent with UTI. UCx collected. Rocephin started. UCx growing ESBL EColi with 10-49K colonies. CT scan showing mild bilateral renal cortical atrophy. Gas and a Kaplan catheter within the decompressed bladder. There is wall thickening of the bladder and mild stranding in the immediately surrounding fat suspicious for cystitis which could be either acute or chronic. There is gas within the left ureter, renal pelvis and calyces with peripheral enhancing urothelium suspicious for ascending UTI. There are some gas beginning in the urethra alongside the Kaplan catheter which extends anteriorly into the region of the widened pubic symphysis suggesting fistulous communication to the urethra. Pelvic MRI showing chronic osteomyelitis at the pubic symphysis. Rocephin changed to meropenem. Urology consulted and recommendations reviewed. Plan for mcfp Kaplan. Small colony count but will need to treat this since she could have an ascending UTI and fistula. No plans for surgical repair of fistula. Continue IV abx (3) Osteomyelitis: Code(s): M86.9 - Osteomyelitis, unspecified Status: Acute Assessment and Plan: CT scan showing a widened pubic symphysis with irregular cortical contours with gas tracking from the pubic symphysis to the urethra which is suspicious for fistulous communication and secondary chronic osteomyelitis. Pelvic MR showing chronic osteomyelitis at the pubic symphysis CT scan 05/16/22 showing erosion of the pubic symphysis. WBC normal. UCx growing ESBL Ecoli. BCx NGTD. CRP trending down with meropenem. [place] to be chronic osteomyelitis. 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 Urology consulted and appreciate their input. They did not recommend an exhaustive evaluation or repair of the urethral fistula and felt the best opt ions may be chronic urinary drainage. So either we treat for complicated ascending UTI or treat for prolonged period (6 weeks) with vanco and meropenem (or ertapenem) for OM. Discussed with radiolgoy but they recommend discusing with interventional radiologist to see if bone biopsy is possible to determine causative organism. Even if treated, she has a fistula which is a risk factor for treatmetn failure. Concerned that she linus have recurrent UTIs given the fistula. (4) Colitis: Code(s): K52.9 - Noninfective gastroenteritis and colitis, unspecified Status: Acute Assessment and Plan: Patient with diarrhea. CT showing mild rectal wall thickening and perirectal inflammatory stranding consistent with mild proctitis. Fecal containment system placed but stool output declining so this has since been removed Stool is negative for C diff. Stool cx negative. Diarrhea resolving Continue Flagyl and meropenem. (5) Acute kidney injury: Code(s): N17.9 - Acute kidney failure, unspecified Status: Acute Assessment and Plan: Labs show Cr 1.2, BUN 44 and eGFR 54, with usual baseline Cr 0.7-0.9 and eGFR >60 CT Abd/Pelvis was with contrast. ABDIRASHID related to UTI, chronic infection, poor renal perfusion from low EF and/or ATN. Cr slightly worsen with diuresis for fluid overload in CHF exacerbation with Cr 1.2, BUN 39 and CrCl 37 Changed to oral Lasix. Cr better at 1. Monitor renal function, electrolytes and UOP (6) Type 2 diabetes mellitus with hyperglycemia: Code(s): E11.65 - Type 2 diabetes mellitus with hyperglycemia Status: Acute Assessment and Plan: Recent A1c 7.5. The patient's blood glucose was reviewed on 02/02 She has been having episodes of hypoglycemia so Lantus stopped and Empagliflozin on hold. Glucose better and elevated at times Continue AccuCheks covering with sliding scale. Hypoglycemia protocol available as needed. Continue to monitor. Continue regular diet for now (7) HTN (hypertension): Qualifiers: Hypertension type: unspecified Qualified Code(s): I10 - Essential (primary) hypertension Code(s): I10 - Essential (primary) hypertension Status: Chronic Assessment and Plan: Patient's blood pressure was reviewed on 02/02 Blood pressure remains well controlled. Will continue current medications. (8) Abdominal wall fluid collections: Code(s): R18.8 - Other ascites Status: Acute Assessment and Plan: She has a partially rim calcified loculated subcutaneous fluid collection superficial to the mesh repair which measures 14.7 x 10.1 x 7.2 cm maximal transaxial dimensions. CT scan from 2022 measured it as 15.3 x 8.9 x 6.5 cm rim calcified fluid collection so appears slightly larger. [place] to be chronic. (9) Abnormal breast finding: Code(s): N64.59 - Other signs and symptoms in breast Status: Acute Assessment and Plan: She has a 6.7 cm fluid collection in right breast that is chronic, likely a seroma noted by imaging. US showing chronic fluid collection that is smaller from 2021 [place] to be chronic. (10) S/P AKA (above knee amputation) bilateral: Code(s): Z89.611 - Acquired absence of right leg above knee; Z89.612 - Acquired absence of left leg above knee Status: Acute Assessment and Plan: Due to DM. Frequent turing. (11) Abnormal CT of the abdomen: Code(s): R93.5 - Abnormal findings on diagnostic imaging of other abdominal regions, including retroperitoneum Status: Acute Assessment and Plan: As above Plan DVT prophylaxis - no SCDs since she is s/p bilateral AKA; HH stable so heparin added Code status - full Subjective Date/time seen: 02/03/24 17:08 Interval history: 69yo female with dementia, CHF, HTN, CAD and DM here for altered mental status. Feeling well. No problems overnight. No Cp or SOB. Cough that is nonproductive. Exam Narrative: AF 98.0 114/39 81 20 100% ra Gen - NARD Chest - decreased BS bibasilar, nml RR CV - RRR S1/S2. Telemetry showing occasional PVCs Abd - Soft, obese, NT. Palm sized firm mass midline abdomen w/o change. Some flank edema - Kaplan secured draining clear yellow urine. Ext - bilateral AKA. left hand edema (related to old IV) Neuro - alert and approrpiate Skin - Warm and dry Objective Data Vital Signs Vital Signs: Vital Signs - 24 hr 02/02/24 18:00 02/02/24 20:00 02/02/24 21:25 Temperature 97.5 F L Pulse Rate 68 72 74 Respiratory Rate 18 Blood Pressure 148/73 H Pulse Oximetry 100 Oxygen Delivery 02/02/24 20:00 02/02/24 20:00 02/02/24 22:00 Temperature Pulse Rate 72 75 Respiratory Rate Blood Pressure Pulse Oximetry Oxygen Delivery Room Air 02/03/24 00:00 02/03/24 00:00 02/03/24 00:00 Temperature 97.5 F L Pulse Rate 73 73 Respiratory Rate 16 Blood Pressure 148/74 H Pulse Oximetry 98 Oxygen Delivery Room Air 02/03/24 02:00 02/03/24 04:00 02/03/24 04:00 Temperature Pulse Rate 66 69 Respiratory Rate Blood Pressure Pulse Oximetry Oxygen Delivery Room Air 02/03/24 04:00 02/03/24 06:00 02/03/24 07:45 Temperature 97.7 F 98.8 F Pulse Rate 69 70 76 Respiratory Rate 16 14 Blood Pressure 130/59 L 153/40 H Pulse Oximetry 100 98 Oxygen Delivery 02/03/24 11:19 02/03/24 08:00 02/03/24 10:00 Temperature 98.5 F Pulse Rate 82 79 82 Respiratory Rate 16 Blood Pressure 124/34 L Pulse Oximetry 97 Oxygen Delivery 02/03/24 12:00 02/03/24 15:14 Temperature 98.0 F Pulse Rate 82 81 Respiratory Rate 20 Blood Pressure 114/39 L Pulse Oximetry 100 Oxygen Delivery Intake/Output Intake/Output: Intake & Output 11/20/24 11/21/24 11/22/24 11/23/24 23:59 23:59 23:59 23:59 Intake Total 1070 9500 263 4886 Output Total 3250 1200 2000 2800 Balance -2183 237 -6859 -9887 Meds/Results Medications: Active Medications Generic Name Dose Route Start Last Admin Trade Name Freq PRN Reason Stop Dose Admin Acetaminophen 650 mg 01/30/24 18:56 02/02/24 13:13 Acetaminophen 325 Mg Tablet PO 650 mg Q6H PRN Administration Pain Rated 5 or Less Atorvastatin Calcium 40 mg 01/30/24 21:00 02/02/24 21:25 Atorvastatin 40 Mg Tablet PO 40 mg HS KASIE Administration Carvedilol 6.25 mg 01/30/24 21:00 02/03/24 10:30 Carvedilol 6.25 Mg Tablet PO 6.25 mg Q12HR KASIE Administration Dextrose 12.5 gm 01/31/24 00:00 02/02/24 08:55 Dextrose 50% 25 Gm/50 Ml Syringe IV PUSH 12.5 gm PRN PRN Administration Hypoglycemia Protocol Empagliflozin 10 mg 01/31/24 09:00 02/02/24 12:08 Empagliflozin 10 Mg Tablet PO Not Given DAILY KASIE Ferrous Sulfate 325 mg 01/31/24 12:00 02/03/24 16:48 Ferrous Sulfate [address] PO 325 mg 1200,1700 KASIE Administration Furosemide 40 mg 02/01/24 09:00 02/03/24 16:48 Furosemide 40 Mg Tablet PO 40 mg BID KASIE Administration Gabapentin 300 mg 01/30/24 22:00 02/03/24 13:02 Gabapentin 300 Mg Capsule PO 300 mg Q8HR KASIE Administration Glucagon 1 mg 01/31/24 00:00 Glucagon For Inj 1 Mg Vial IM PRN PRN Hypoglycemia Protocol Glucose 15 gm 01/31/24 00:00 Glucose Oral Gel 15 Gm Of Glucse In 37.5 Gm Tube PO PRN PRN Hypoglycemia Protocol Heparin Sodium (Porcine) 5,000 units 02/01/24 21:00 02/03/24 10:30 Heparin Sodium 5,000 Units/Ml Vial SUB-Q 5,000 units Q12HR KASIE Administration Dextrose 1,000 mls @ 100 mls/hr 01/31/24 00:00 Dextrose 5% 1,000 Ml IVPB PRN PRN Hypoglycemia Protocol Meropenem 1 gm in 100 mls @ 200 mls/hr 02/01/24 16:00 02/03/24 16:57 IVPB 200 mls/hr 0500,1700 KASIE Administration Insulin Aspart 0 units 01/31/24 08:00 02/03/24 16:45 Insulin Aspart (*Bkc) 100 Units/Ml SUB-Q 6 units ACINSULIN KASIE Administration Protocol Levothyroxine Sodium 100 mcg 01/31/24 06:30 02/03/24 05:56 Levothyroxine Sodium 100 Mcg Tablet PO 100 mcg DAILY@0630 KASIE Administration Metronidazole 500 mg 02/01/24 14:00 02/03/24 13:02 Metronidazole 500 Mg Tablet PO 500 mg Q8HR KASIE Administration Ondansetron HCl 4 mg 01/30/24 18:59 Ondansetron Inj 4 Mg/2 Ml Vial IV PUSH Q6H PRN Nausea And Vomiting Pantoprazole Sodium 20 mg 01/31/24 09:00 02/03/24 10:30 Pantoprazole Sod Sesquihydrate 20 Mg Tab PO 20 mg QAM KASIE Administration Potassium Chloride 10 meq 01/31/24 09:00 02/03/24 10:30 Potassium Chloride 10 Meq Er Tablet PO 10 meq DAILY KASIE Administration Sacubitril/Valsartan 1 tab 01/30/24 21:00 02/03/24 10:30 Sacubitril/Valsartan 24-26 Mg Tablet PO 1 tab Q12H KASIE Administration Sodium Chloride 10 ml 02/03/24 14:00 02/03/24 13:02 Central Line Flush IV PUSH 10 ml Q8HR KASIE Administration Sodium Chloride 10 ml 02/03/24 09:59 Central Line Flush IV PUSH PRN PRN with TPN bag changes Sodium Chloride 20 ml 02/03/24 09:59 Central Line Flush IV PUSH PRN PRN after blood draws Tramadol HCl 50 mg 01/30/24 18:56 02/01/24 05:23 Tramadol Hcl (*Crx) 50 Mg Tablet PO 50 mg Q8H PRN Administration Pain Rated 6 or Greater Radiology Results: ITS Impressions Chest X-Ray 01/30/24 13:15 IMPRESSION: Cardiomegaly with cardiac decompensation and pulmonary edema. Superimposed pneumonitis is not excluded. Left lower lobe atelectasis versus pneumonia. Possibility of effusion excluded. Abdomen/Pelvis CT 01/30/24 14:48 IMPRESSION: 1. Rectal tube in expected position with mild rectal wall thickening and perirectal inflammatory stranding suggestive of mild proctitis. 2. Likely cystitis with ascending left urinary tract infection. 3. Soft tissue gas at the right breast which appears intravascular potentially intravenous related to IV catheter placement. Correlate with clinical history. 4. Recommend with chronic small pericardial effusion. 5. Likely proctitis which could related to stercoral colitis or the presence of a rectal tube. 6. Widened pubic symphysis with irregular cortical contours with gas tracking from the pubic symphysis to the urethra which is suspicious for fistulous communication and secondary chronic osteomyelitis. Chest CT 01/30/24 15:44 IMPRESSION: 1. Venous gas in anterior chest wall, likely from IV injection, likely not clinically significant. 2. Mild pulmonary edema. 3. Small pericardial effusion. 4. Cardiomegaly. 5. 6.7 cm fluid collection in right breast that is chronic, likely a seroma. Pelvis MRI 01/31/24 16:18 IMPRESSION: 1. Chronic osteomyelitis at the pubic symphysis. 2. Wall thickening of the rectosigmoid, consistent with colitis. 3. 9.3 cm fluid collection in anterior abdominal wall, likely a seroma. Breast Ultrasound 02/01/24 13:41 IMPRESSION: Chronic calcified avascular collection within the soft tissues of the right breast, decreased in size when compared with chest radiograph dated 12/05/2021, for which no further follow-up is needed. Labs Labs: Laboratory Results - last 24 hr 02/02/24 02/03/24 02/03/24 19:55 04:43 07:47 WBC 4.9 RBC 3.53 L Hgb 10.8 L Hct 34.4 L MCV 97.5 MCH 30.6 MCHC 31.4 L RDW 17.6 H Plt Count 212 MPV 10.1 Immature Gran % (Auto) 0.2 Neut % (Auto) 75.1 H Lymph % (Auto) 14.8 L [place] % (Auto) 5.7 Eos % (Auto) 3.6 Baso % (Auto) 0.6 Lymph # (Auto) 0.73 L [place] # (Auto) 0.3 Eos # (Auto) 0.2 Baso # (Auto) 0.0 Abs Immat Gran (auto) 0.01 Absolute Neuts (auto) 3.7 Absolute Nucleated RBC 0.000 Nucleated RBC % 0.0 Sodium 139 Potassium 3.9 Chloride 105 Carbon Dioxide 28 Anion Gap 6 BUN 29 H Creatinine 1.00 Estim Creat Clear Calc 44 Estimated GFR > 60 Glucose 195 H POC Capillary Glucose 178 H 189 H Calcium 8.1 L Phosphorus 3.5 Magnesium 1.9 C-Reactive Protein 4.9 H Albumin 3.0 L 02/03/24 02/03/24 02/03/24 11:26 13:33 16:19 WBC RBC Hgb Hct MCV MCH MCHC RDW Plt Count MPV Immature Gran % (Auto) Neut % (Auto) Lymph % (Auto) [place] % (Auto) Eos % (Auto) Baso % (Auto) Lymph # (Auto) [place] # (Auto) Eos # (Auto) Baso # (Auto) Abs Immat Gran (auto) Absolute Neuts (auto) Absolute Nucleated RBC Nucleated RBC % Sodium Potassium Chloride Carbon Dioxide Anion Gap BUN Creatinine Estim Creat Clear Calc Estimated GFR Glucose POC Capillary Glucose 234 H 282 H 217 H Calcium Phosphorus Magnesium C-Reactive Protein Albumin
--- NOTE | 2024-02-03 18:58 | PC.NURSE ---
This patient, Iris Pascual, was received from IMU on 02/03/24 at 1850. Patient/family oriented to unit policies and routines.
[2024-02-03] MEDS: ATORVASTATIN 40 MG TABLET PO (21:03)
[2024-02-03 21:08] LABS: Glucose Point of Care 189 mg/dl (65-105)
[2024-02-04 04:00] VITALS: BP 112/45; PULSE 74; RESP 12; TEMP 36.5; O2SAT 97
[2024-02-04] MEDS: MEROPENEM 1 GM/NS 100 ML 1 GM/100 ML BAG IVPB ×2 (06:08→16:51)
[2024-02-04] MEDS: GABAPENTIN 300 MG CAPSULE PO ×3 (06:08→21:32)
[2024-02-04] MEDS: metroNIDAZOLE 500 MG TABLET PO ×3 (06:08→21:32)
[2024-02-04] MEDS: LEVOTHYROXINE SODIUM 100 MCG TABLET PO (06:08)
[2024-02-04] MEDS: CENTRAL LINE FLUSH 10 ML IV PUSH ×3 (06:10→21:30)
[2024-02-04 06:35] LABS: Anion Gap 4 mmol/L (4-12); Blood Urea Nitrogen 28 mg/dL (7-17); Calcium 8.1 mg/dL (8.4-10.2); Carbon Dioxide 31 mmol/L (22-30); Chloride 102 mmol/L (98-107); Estimated CRCL calculation 41 ml/min; Estimated Glomerular Filt Rate 60; Glucose 181 mg/dL (65-110); Potassium 3.8 mmol/L (3.4-5.0); Sodium 137 mmol/L (137-145)
[2024-02-04 07:38] LABS: Glucose Point of Care 201 mg/dl (65-105)
[2024-02-04 08:00] VITALS: BP 124/57; PULSE 76; RESP 16; TEMP 36.3; O2SAT 100
[2024-02-04] MEDS: traMADol HCL (*CRX) 50 MG TABLET PO ×2 (09:18→16:50)
[2024-02-04] MEDS: ACETAMINOPHEN 325 MG TABLET 650 MG PO ×2 (09:19→16:50)
[2024-02-04] MEDS: PANTOPRAZOLE SOD SESQUIHYDRATE 20 MG TAB PO (09:20)
[2024-02-04] MEDS: HEPARIN SODIUM 5,000 UNITS/ML VIAL 5000 UNITS SUB-Q ×2 (09:20→21:32)
[2024-02-04] MEDS: SACUBITRIL/VALSARTAN 24-26 MG TABLET 1 TAB PO (09:20)
[2024-02-04] MEDS: FUROSEMIDE 40 MG TABLET PO ×2 (09:20→16:42)
[2024-02-04] MEDS: carvediloL 6.25 MG TABLET PO (09:20)
[2024-02-04] MEDS: POTASSIUM CHLORIDE 10 MEQ ER TABLET PO (09:20)
[2024-02-04] MEDS: INSULIN ASPART (*BKC) 100 UNITS/ML SUB-Q ×2 (09:21→11:36)
--- NOTE | 2024-02-04 10:51 | P.PNIM_ITS ---
Progress Note: A&P Assessment and Plan (1) Combined systolic and diastolic congestive heart failure: Qualifiers: Heart failure chronicity: acute on chronic Qualified Code(s): I50.43 - Acute on chronic combined systolic (congestive) and diastolic (congestive) heart failure Code(s): I50.40 - Unspecified combined systolic (congestive) and diastolic (congestive) heart failure Status: Acute Assessment and Plan: Acute on chronic Combined HF * BNP * cardiology consulted * IV Lasix b.i.d. transitioned back to her PO home dose * monitor renal function during diuresis * previous echocardiogram results: with severe global LV systolic dysfunction (25-30% EF), Grade 3-4 diastolic dysfunction, elevated LAP, mild RV enlargement with hypokinesis, mild MR, mild and AI, mild pHTN (41 RVSP) and mild-mod pericardial effusion but no tamponade. (Echo EF 20-25% in 2021) * echocardiogram pending * EKG: showing NSR with first degree AVB, LAD, age indeterminate anteroseptal infarct and ST-T wave changes in the high lateral leads. * chest x-ray: pulmonary edema * Daily weight. * elevate/Rashel wrap legs if needed * Continue home medications including Entresto and Coreg. Held off on Spironolactone since BP soft. Empagliflozin on hold due to hypoglycemia * Optimize blood pressure less than 130/80. * Fall risk assessment. (2) Acute UTI: Code(s): N39.0 - Urinary tract infection, site not specified Status: Acute Assessment and Plan: * UA is consistent with UTI. UCx collected. * Rocephin started. UCx growing ESBL EColi with 10-49K colonies. * CT scan showing mild bilateral renal cortical atrophy. Gas and a Reyes catheter within the decompressed bladder. There is wall thickening of the bladder and mild stranding in the immediately surrounding fat suspicious for cystitis which could be either acute or chronic. There is gas within the left ureter, renal pelvis and calyces with peripheral enhancing urothelium suspicious for ascending UTI. 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 * Rocephin changed to meropenem. Urology consulted and recommendations reviewed. Plan for buttermaker Reyes. * Small colony count but will need to treat this since she could have an ascending UTI and fistula. No plans for surgical repair of fistula. Continue IV abx 02/04/2024: * Plan for buttermaker reyes catheter during treatment phase and can follow-up with urology outpatient for possible removal when completed (3) Osteomyelitis: Code(s): M86.9 - Osteomyelitis, unspecified Status: Acute Assessment and Plan: * CT scan showing a widened pubic symphysis with irregular cortical contours with gas tracking from the pubic symphysis to the urethra which is suspicious for fistulous communication and secondary chronic osteomyelitis. 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 * WBC normal. UCx growing ESBL Ecoli. BCx NGTD. CRP trending down with meropenem. * [place] to be chronic osteomyelitis. 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 * Urology consulted and appreciate their input. They did not recommend an exhaustive evaluation or repair of the urethral fistula and felt the best options may be chronic urinary drainage. 02/04/24: * Plan will be to speak with IR regarding pubic bone biopsy is possible to identify organism of OM if unable to perform will speak with our ID regarding OM coverage with 6 weeks Vanc vs possible Linzilid and also treat for ascending UTI for 6 weeks on ertapenem. * PICC line in place * Patient from [facility] * CC consulted to assist * Pending treatment plans patient will need to dicharge with chronic reyes during treatment removing could result in treatment failure and recurrent UTI's * Blood cultures still NGTD (4) Colitis: Code(s): K52.9 - Noninfective gastroenteritis and colitis, unspecified Status: Acute Assessment and Plan: * Patient with diarrhea. CT showing mild rectal wall thickening and perirectal inflammatory stranding consistent with mild proctitis. * Fecal containment system placed but stool output declining so this has since been removed * Stool is negative for C diff. Stool cx negative. Diarrhea resolving * Continue Flagyl and meropenem. 02/04/24: * Improving (5) Acute kidney injury: Code(s): N17.9 - Acute kidney failure, unspecified Status: Acute Assessment and Plan: * Labs show Cr 1.2, BUN 44 and eGFR 54, with usual baseline Cr 0.7-0.9 and eGFR >60 * CT Abd/Pelvis was with contrast. ABDIRASHID related to UTI, chronic infection, poor renal perfusion from low EF and/or ATN. * Cr slightly worsen with diuresis for fluid overload in CHF exacerbation with Cr 1.2, BUN 39 and CrCl 37 * Changed to oral Lasix. Cr better at 1. * Monitor renal function, electrolytes and UOP 02/04/24: * small bump in Cr 1.10 * renal function daily (6) Type 2 diabetes mellitus with hyperglycemia: Code(s): E11.65 - Type 2 diabetes mellitus with hyperglycemia Status: Acute Assessment and Plan: * Rina-Birdie machado HS * sliding scale insulin * She has been having episodes of hypoglycemia so Lantus stopped and Empagliflozin on hold. * Hemoglobin A1c Recent A1c 7.5 * lipid panel pending * Diabetic diet * Watch for hypoglycemia/hypoglycemic protocol ordered (7) HTN (hypertension): Qualifiers: Hypertension type: unspecified Qualified Code(s): I10 - Essential (primary) hypertension Code(s): I10 - Essential (primary) hypertension Status: Chronic Assessment and Plan: * Patient's blood pressure was reviewed on 02/03 * Blood pressure remains well controlled. * Will continue current medications. (8) Abdominal wall fluid collections: Code(s): R18.8 - Other ascites Status: Acute Assessment and Plan: * She has a partially rim calcified loculated subcutaneous fluid collection superficial to the mesh repair which measures 14.7 x 10.1 x 7.2 cm maximal transaxial dimensions. * CT scan from 2022 measured it as 15.3 x 8.9 x 6.5 cm rim calcified fluid collection so appears slightly larger. * [place] to be chronic. (9) Abnormal breast finding: Code(s): N64.59 - Other signs and symptoms in breast Status: Acute Assessment and Plan: * She has a 6.7 cm fluid collection in right breast that is chronic, likely a seroma noted by imaging. * US showing chronic fluid collection that is smaller from 2021 * [place] to be chronic. (10) S/P AKA (above knee amputation) bilateral: Code(s): Z89.611 - Acquired absence of right leg above knee; Z89.612 - Acquired absence of left leg above knee Status: Acute Assessment and Plan: * Due to DM. * Q2 turns * off load * Monitor for skin breakdown Plan Code status: Full code per patient DVT prophylaxis: Heparin Stress ulcer prophylaxis: Protonix 40 daily PT/OT notes: BLE BKA Disposition: Patient continues admission to the medical unit ascending urinary tract infection and pubic osteomyelitis plan is to return back to senior care facility on long-term IV antibiotic therapy PICC in place. Time Spent With Patient Time with patient: 15 - 25 minutes Subjective Date/time seen: 02/04/24 10:51 Interval history: 69yo female with dementia, CHF, HTN, CAD and DM here for altered mental status. Found to have urinary tract infection pubic symphysis osteomyelitis 02/04/24: Assumed Care Patient denied CP, SOB, N/V/D but did report BLE pain (phantom pain), scant swelling to amputations. Patient afebrile overnight and normal WBC. Review of Systems Review of Systems: Patient denies pain or difficulty breathing ROS unobtainable: Yes unobtainable due to mental status Exam Narrative: * GENERAL: Alert and oriented x 3. No acute distress. * EYES: PERRLA. * HEENT: Moist mucous membranes. * LUNGS: Clear to auscultation bilaterally. No accessory muscle use. * CARDIOVASCULAR: Regular rate and rhythm. No murmur. No JVD. S1-S2 * ABDOMEN: Soft, non tenderness and non-distended. No palpable masses. * EXTREMITIES: No edema. Non-tender * SKIN: No rashes or lesions. Skin warm, dry. * NEUROLOGIC: No focal neurological deficits. CN II-XII grossly intact * PSYCHIATRIC: Appropriate mood and affect. Good judgement and insight. Objective Data Vital Signs Vital Signs: Vital Signs - 24 hr 02/03/24 11:19 02/03/24 12:00 02/03/24 15:14 Temperature 98.5 F 98.0 F Pulse Rate 82 82 81 Respiratory Rate 16 20 Blood Pressure 124/34 L 114/39 L Pulse Oximetry 97 100 Oxygen Delivery 02/03/24 14:00 02/03/24 16:00 02/03/24 18:00 Temperature Pulse Rate 79 77 80 Respiratory Rate Blood Pressure Pulse Oximetry Oxygen Delivery 02/03/24 19:01 02/03/24 23:50 02/03/24 20:00 Temperature 97.5 F L 97.6 F Pulse Rate 82 78 Respiratory Rate 16 20 Blood Pressure 116/42 L 126/55 L Pulse Oximetry 100 93 Oxygen Delivery Room Air 02/04/24 04:00 02/04/24 08:00 Temperature 97.7 F 97.4 F L Pulse Rate 74 76 Respiratory Rate 12 16 Blood Pressure 112/45 L 124/57 L Pulse Oximetry 97 100 Oxygen Delivery Intake/Output Intake/Output: Intake & Output 02/01/24 02/02/24 02/03/24 02/04/24 23:59 23:59 23:59 23:59 Intake Total 9199 870 9540 1560 Output Total 1200 2000 2950 950 Balance 620 1150 -1200 610 Meds/Results Medications: Active Medications Generic Name Dose Route Start Last Admin Trade Name Freq PRN Reason Stop Dose Admin Acetaminophen 650 mg 01/30/24 18:56 02/04/24 09:19 Acetaminophen 325 Mg Tablet PO 650 mg Q6H PRN Administration Pain Rated 5 or Less Atorvastatin Calcium 40 mg 01/30/24 21:00 02/03/24 21:03 Atorvastatin 40 Mg Tablet PO 40 mg HS KASIE Administration Carvedilol 6.25 mg 01/30/24 21:00 02/04/24 09:20 Carvedilol 6.25 Mg Tablet PO 6.25 mg Q12HR KASIE Administration Dextrose 12.5 gm 01/31/24 00:00 02/02/24 08:55 Dextrose 50% 25 Gm/50 Ml Syringe IV PUSH 12.5 gm PRN PRN Administration Hypoglycemia Protocol Empagliflozin 10 mg 01/31/24 09:00 02/02/24 12:08 Empagliflozin 10 Mg Tablet PO Not Given DAILY KASIE Ferrous Sulfate 325 mg 01/31/24 12:00 02/03/24 16:48 Ferrous Sulfate [address] PO 325 mg 1200,1700 KASIE Administration Furosemide 40 mg 02/01/24 09:00 02/04/24 09:20 Furosemide 40 Mg Tablet PO 40 mg BID KASIE Administration Gabapentin 300 mg 01/30/24 22:00 02/04/24 06:08 Gabapentin 300 Mg Capsule PO 300 mg Q8HR KASIE Administration Glucagon 1 mg 01/31/24 00:00 Glucagon For Inj 1 Mg Vial IM PRN PRN Hypoglycemia Protocol Glucose 15 gm 01/31/24 00:00 Glucose Oral Gel 15 Gm Of Glucse In 37.5 Gm Tube PO PRN PRN Hypoglycemia Protocol Heparin Sodium (Porcine) 5,000 units 02/01/24 21:00 02/04/24 09:20 Heparin Sodium 5,000 Units/Ml Vial SUB-Q 5,000 units Q12HR KASIE Administration Dextrose 1,000 mls @ 100 mls/hr 01/31/24 00:00 Dextrose 5% 1,000 Ml IVPB PRN PRN Hypoglycemia Protocol Meropenem 1 gm in 100 mls @ 200 mls/hr 02/01/24 16:00 02/04/24 06:08 IVPB 200 mls/hr 0500,1700 KASIE Administration Insulin Aspart 0 units 01/31/24 08:00 02/04/24 09:21 Insulin Aspart (*Bkc) 100 Units/Ml SUB-Q 6 units ACINSULIN KASIE Administration Protocol Levothyroxine Sodium 100 mcg 01/31/24 06:30 02/04/24 06:08 Levothyroxine Sodium 100 Mcg Tablet PO 100 mcg DAILY@0630 KASIE Administration Metronidazole 500 mg 02/01/24 14:00 02/04/24 06:08 Metronidazole 500 Mg Tablet PO 500 mg Q8HR KASIE Administration Ondansetron HCl 4 mg 01/30/24 18:59 Ondansetron Inj 4 Mg/2 Ml Vial IV PUSH Q6H PRN Nausea And Vomiting Pantoprazole Sodium 20 mg 01/31/24 09:00 02/04/24 09:20 Pantoprazole Sod Sesquihydrate 20 Mg Tab PO 20 mg QAM KASIE Administration Potassium Chloride 10 meq 01/31/24 09:00 02/04/24 09:20 Potassium Chloride 10 Meq Er Tablet PO 10 meq DAILY KASIE Administration Sacubitril/Valsartan 1 tab 01/30/24 21:00 02/04/24 09:20 Sacubitril/Valsartan 24-26 Mg Tablet PO 1 tab Q12H KASIE Administration Sodium Chloride 10 ml 02/03/24 14:00 02/04/24 06:10 Central Line Flush IV PUSH 10 ml Q8HR KASIE Administration Sodium Chloride 10 ml 02/03/24 09:59 Central Line Flush IV PUSH PRN PRN with TPN bag changes Sodium Chloride 20 ml 02/03/24 09:59 Central Line Flush IV PUSH PRN PRN after blood draws Tramadol HCl 50 mg 01/30/24 18:56 02/04/24 09:18 Tramadol Hcl (*Crx) 50 Mg Tablet PO 50 mg Q8H PRN Administration Pain Rated 6 or Greater Radiology Results: ITS Impressions Chest X-Ray 01/30/24 13:15 IMPRESSION: Cardiomegaly with cardiac decompensation and pulmonary edema. Superimposed pneumonitis is not excluded. Left lower lobe atelectasis versus pneumonia. Possibility of effusion excluded. Abdomen/Pelvis CT 01/30/24 14:48 IMPRESSION: 1. Rectal tube in expected position with mild rectal wall thickening and perirectal inflammatory stranding suggestive of mild proctitis. 2. Likely cystitis with ascending left urinary tract infection. 3. Soft tissue gas at the right breast which appears intravascular potentially intravenous related to IV catheter placement. Correlate with clinical history. 4. Recommend with chronic small pericardial effusion. 5. Likely proctitis which could related to stercoral colitis or the presence of a rectal tube. 6. Widened pubic symphysis with irregular cortical contours with gas tracking from the pubic symphysis to the urethra which is suspicious for fistulous communication and secondary chronic osteomyelitis. Chest CT 01/30/24 15:44 IMPRESSION: 1. Venous gas in anterior chest wall, likely from IV injection, likely not clinically significant. 2. Mild pulmonary edema. 3. Small pericardial effusion. 4. Cardiomegaly. 5. 6.7 cm fluid collection in right breast that is chronic, likely a seroma. Pelvis MRI 01/31/24 16:18 IMPRESSION: 1. Chronic osteomyelitis at the pubic symphysis. 2. Wall thickening of the rectosigmoid, consistent with colitis. 3. 9.3 cm fluid collection in anterior abdominal wall, likely a seroma. Breast Ultrasound 02/01/24 13:41 IMPRESSION: Chronic calcified avascular collection within the soft tissues of the right breast, decreased in size when compared with chest radiograph dated 12/05/2021, for which no further follow-up is needed. Labs Labs: Laboratory Results - last 24 hr 02/03/24 02/03/24 02/03/24 11:26 13:33 16:19 Sodium Potassium Chloride Carbon Dioxide Anion Gap BUN Creatinine Estim Creat Clear Calc Estimated GFR Glucose POC Capillary Glucose 234 H 282 H 217 H Calcium 02/03/24 02/04/24 02/04/24 21:00 06:07 07:29 Sodium 137 Potassium 3.8 Chloride 102 Carbon Dioxide 31 H Anion Gap 4 BUN 28 H Creatinine 1.10 H Estim Creat Clear Calc 41 Estimated GFR 60 Glucose 181 H POC Capillary Glucose 189 H 201 H Calcium 8.1 L Quality VTE Prophylaxis VTE prophylaxis: pharmacologic ordered -Patient's previous records reviewed on admission -ER notes reviewed in detail on admission -discussed all findings and current treatment plan with patient/Family/POA -Consultations reviewed for recommendations -Patient's disposition for safe discharge discussed with case worker Dictation performed by [employer] direct speech recognition software, therefore biomedical engineering technologist variants and typographical errors may occur. Hospitalist MIPS Advance Care Plan I have confirmed that the patient's Advanced Care Plan is present, code status is documented, or surrogate decision maker is listed in patient medical record.: Yes Medication Reconciliation I have utilized all available resources to obtain, update and review the patients current medications (includes all prescriptions, OTC, herbals, cannabis, and nutritional supplements).: Yes The patient is not eligible for med reconciliation; the patient is in a emergent medical situation where delaying treatment would jeopardize the patients health.: No
[2024-02-04 11:32] LABS: Glucose Point of Care 187 mg/dl (65-105)
[2024-02-04] MEDS: FERROUS SULFATE 325 MG TABLET DR PO ×2 (11:41→16:42)
[2024-02-04 12:00] VITALS: BP 121/57; PULSE 75; RESP 18; TEMP 36.4; O2SAT 98
[2024-02-04 13:08] VITALS: PULSE 75; RESP 18; O2SAT 98
[2024-02-04 16:00] VITALS: BP 91/59; PULSE 76; RESP 18; TEMP 36.6; O2SAT 100
[2024-02-04 16:37] LABS: Glucose Point of Care 141 mg/dl (65-105)
[2024-02-04 19:21] LABS: Glucose Point of Care 169 mg/dl (65-105)
[2024-02-04 20:00] VITALS: BP 102/46; PULSE 74; RESP 18; TEMP 36.5; O2SAT 98
[2024-02-04] MEDS: ATORVASTATIN 40 MG TABLET PO (21:32)
[2024-02-05] VITALS (8 sets, daily range): BP systolic 113–142; BP diastolic 48–89; PULSE 75–95; RESP 12–24; TEMP 35.5–37.7; O2SAT 90–100
[2024-02-05] MEDS: MEROPENEM 1 GM/NS 100 ML 1 GM/100 ML BAG IVPB ×2 (04:59→16:47)
[2024-02-05] MEDS: metroNIDAZOLE 500 MG TABLET PO (05:00)
[2024-02-05] MEDS: GABAPENTIN 300 MG CAPSULE PO ×2 (05:00→13:46)
[2024-02-05] MEDS: LEVOTHYROXINE SODIUM 100 MCG TABLET PO (05:00)
[2024-02-05] MEDS: CENTRAL LINE FLUSH 10 ML IV PUSH ×2 (05:07→13:47)
[2024-02-05 05:09] LABS: Hematocrit 33.4 % (37.0-47.0); Hemoglobin 10.2 g/dL (12.0-15.0); Mean Corpuscular HGB Conc 30.5 g/dl (32-36); Mean Corpuscular Hemoglobin 30.2 pg (26-34); Mean Corpuscular Volume 98.8 fl (80-100); Mean Platelet Volume 9.9 fl (7.4-10.4); Platelet Count Result 247 k/mm3 (150-375); Red Blood Count 3.38 M/mm3 (4.2-5.4); Red Cell Distribution Width 17.6 % (11.5-14.5); White Blood Count 5.7 K/mm3 (4.5-10.0)
[2024-02-05 05:19] LABS: Alanine Aminotransferase 13 U/L (6-35); Alkaline Phosphatase 77 U/L (38-126); Anion Gap 6 mmol/L (4-12); Aspartate Amino Transferase 24 U/L (14-36); Bilirubin,Total 0.5 mg/dL (0.2-1.3); Blood Urea Nitrogen 28 mg/dL (7-17); Calcium 7.9 mg/dL (8.4-10.2); Carbon Dioxide 31 mmol/L (22-30); Chloride 99 mmol/L (98-107); Estimated CRCL calculation 41 ml/min; Estimated Glomerular Filt Rate 60; Glucose 171 mg/dL (65-110); Potassium 3.9 mmol/L (3.4-5.0); Sodium 136 mmol/L (137-145)
[2024-02-05 07:39] LABS: Glucose Point of Care 181 mg/dl (65-105)
[2024-02-05] MEDS: carvediloL 6.25 MG TABLET PO (08:36)
[2024-02-05] MEDS: HEPARIN SODIUM 5,000 UNITS/ML VIAL 5000 UNITS SUB-Q (08:36)
[2024-02-05] MEDS: POTASSIUM CHLORIDE 10 MEQ ER TABLET PO (08:36)
[2024-02-05] MEDS: SACUBITRIL/VALSARTAN 24-26 MG TABLET 1 TAB PO (08:36)
[2024-02-05] MEDS: PANTOPRAZOLE SOD SESQUIHYDRATE 20 MG TAB PO (08:36)
[2024-02-05] MEDS: FUROSEMIDE 40 MG TABLET PO ×2 (08:36→16:47)
[2024-02-05 11:34] LABS: Glucose Point of Care 229 mg/dl (65-105)
[2024-02-05] MEDS: FERROUS SULFATE 325 MG TABLET DR PO ×2 (12:46→16:48)
[2024-02-05] MEDS: INSULIN ASPART (*BKC) 100 UNITS/ML SUB-Q (13:58)
--- NOTE | 2024-02-05 14:28 | P.PNIM_ITS ---
Progress Note: A&P Assessment and Plan (1) Combined systolic and diastolic congestive heart failure: Qualifiers: Heart failure chronicity: acute on chronic Qualified Code(s): I50.43 - Acute on chronic combined systolic (congestive) and diastolic (congestive) heart failure Code(s): I50.40 - Unspecified combined systolic (congestive) and diastolic (congestive) heart failure Status: Acute Assessment and Plan: Acute on chronic Combined HF * BNP * cardiology consulted * IV Lasix b.i.d. transitioned back to her PO home dose * monitor renal function during diuresis * previous echocardiogram results: with severe global LV systolic dysfunction (25-30% EF), Grade 3-4 diastolic dysfunction, elevated LAP, mild RV enlargement with hypokinesis, mild MR, mild and AI, mild pHTN (41 RVSP) and mild-mod pericardial effusion but no tamponade. (Echo EF 20-25% in 2021) * echocardiogram pending * EKG: showing NSR with first degree AVB, LAD, age indeterminate anteroseptal infarct and ST-T wave changes in the high lateral leads. * chest x-ray: pulmonary edema * Daily weight. * elevate/Rashel wrap legs if needed * Continue home medications including Entresto and Coreg. Held off on Spironolactone since BP soft. Empagliflozin on hold due to hypoglycemia * Optimize blood pressure less than 130/80. * Fall risk assessment. (2) Acute UTI: Code(s): N39.0 - Urinary tract infection, site not specified Status: Acute Assessment and Plan: * UA is consistent with UTI. UCx collected. * Rocephin started. UCx growing ESBL EColi with 10-49K colonies. * CT scan showing mild bilateral renal cortical atrophy. Gas and a Reyes catheter within the decompressed bladder. There is wall thickening of the bladder and mild stranding in the immediately surrounding fat suspicious for cystitis which could be either acute or chronic. There is gas within the left ureter, renal pelvis and calyces with peripheral enhancing urothelium suspicious for ascending UTI. 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 * Rocephin changed to meropenem. Urology consulted and recommendations reviewed. Plan for intermediate project manager Reyes. * Small colony count but will need to treat this since she could have an ascending UTI and fistula. No plans for surgical repair of fistula. Continue IV abx 02/04/2024: * Plan for intermediate project manager reyes catheter during treatment phase and can follow-up with urology outpatient for possible removal when completed (3) Osteomyelitis: Code(s): M86.9 - Osteomyelitis, unspecified Status: Acute Assessment and Plan: * CT scan showing a widened pubic symphysis with irregular cortical contours with gas tracking from the pubic symphysis to the urethra which is suspicious for fistulous communication and secondary chronic osteomyelitis. 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 * WBC normal. UCx growing ESBL Ecoli. BCx NGTD. CRP trending down with meropenem. * Carrizozo to be chronic osteomyelitis. 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 * Urology consulted and appreciate their input. They did not recommend an exhaustive evaluation or repair of the urethral fistula and felt the best options may be chronic urinary drainage. 02/04/24: * Plan will be to speak with IR regarding pubic bone biopsy is possible to identify organism of OM if unable to perform will speak with our ID regarding OM coverage with 6 weeks Vanc vs possible Linzilid and also treat for ascending UTI for 6 weeks on ertapenem. * PICC line in place * Patient from [facility] * CC consulted to assist * Pending treatment plans patient will need to discharge with chronic reyes during treatment removing could result in treatment failure and recurrent UTI's * Blood cultures still NGTD 02/05/24: * Waiting on decision of bone biopsy * spoke with ID about IV ABX/vanc and ertapenem 6 weeks of no biopsy or ertapenem 6 weeks if bone biopsy completed and no Gram-positive grows. (4) Colitis: Code(s): K52.9 - Noninfective gastroenteritis and colitis, unspecified Status: Acute Assessment and Plan: * Patient with diarrhea. CT showing mild rectal wall thickening and perirectal inflammatory stranding consistent with mild proctitis. * Fecal containment system placed but stool output declining so this has since been removed * Stool is negative for C diff. Stool cx negative. Diarrhea resolving * Continue Flagyl and meropenem. 02/04/24: * Improving (5) Acute kidney injury: Code(s): N17.9 - Acute kidney failure, unspecified Status: Acute Assessment and Plan: * Labs show Cr 1.2, BUN 44 and eGFR 54, with usual baseline Cr 0.7-0.9 and eGFR >60 * CT Abd/Pelvis was with contrast. ABDIRASHID related to UTI, chronic infection, poor renal perfusion from low EF and/or ATN. * Cr slightly worsen with diuresis for fluid overload in CHF exacerbation with C r 1.2, BUN 39 and CrCl 37 * Changed to oral Lasix. Cr better at 1. * Monitor renal function, electrolytes and UOP 02/04/24: * small bump in Cr 1.10 * renal function daily (6) Type 2 diabetes mellitus with hyperglycemia: Code(s): E11.65 - Type 2 diabetes mellitus with hyperglycemia Status: Acute Assessment and Plan: * Accu-Cheks a.c. HS * sliding scale insulin * She has been having episodes of hypoglycemia so Lantus stopped and Empagliflozin on hold. * Hemoglobin A1c Recent A1c 7.5 * lipid panel pending * Diabetic diet * Watch for hypoglycemia/hypoglycemic protocol ordered (7) HTN (hypertension): Qualifiers: Hypertension type: unspecified Qualified Code(s): I10 - Essential (primary) hypertension Code(s): I10 - Essential (primary) hypertension Status: Chronic Assessment and Plan: * Patient's blood pressure was reviewed on 02/03 * Blood pressure remains well controlled. * Will continue current medications. (8) Abdominal wall fluid collections: Code(s): R18.8 - Other ascites Status: Acute Assessment and Plan: * She has a partially rim calcified loculated subcutaneous fluid collection superficial to the mesh repair which measures 14.7 x 10.1 x 7.2 cm maximal transaxial dimensions. * CT scan from 2022 measured it as 15.3 x 8.9 x 6.5 cm rim calcified fluid collection so appears slightly larger. * Carrizozo to be chronic. (9) Abnormal breast finding: Code(s): N64.59 - Other signs and symptoms in breast Status: Acute Assessment and Plan: * She has a 6.7 cm fluid collection in right breast that is chronic, likely a seroma noted by imaging. * US showing chronic fluid collection that is smaller from 2021 * Carrizozo to be chronic. (10) S/P AKA (above knee amputation) bilateral: Code(s): Z89.611 - Acquired absence of right leg above knee; Z89.612 - Acquired absence of left leg above knee Status: Acute Assessment and Plan: * Due to DM. * Q2 turns * off load * Monitor for skin breakdown Plan Code status: Full code per patient DVT prophylaxis: Heparin Stress ulcer prophylaxis: Protonix 40 daily PT/OT notes: BLE BKA Disposition: Patient continues admission to the medical unit ascending urinary tract infection and pubic osteomyelitis plan is to return back to [facility] facility on long-term IV antibiotic therapy PICC in place. Time Spent With Patient Time with patient: 15 - 25 minutes Subjective Date/time seen: 02/05/24 14:28 Interval history: 69yo female with dementia, CHF, HTN, CAD and DM here for altered mental status. Found to have urinary tract infection pubic symphysis osteomyelitis 02/05/24: Assumed Care Patient denied CP, SOB, N/V/D BLE pain improved spoke Dr. Biswas (IR ) about bone biopsy will discuss with another IR to see if this is even possible. Patient in no acute distress had no complaints, denied CP or SOB. Review of Systems Review of Systems: Patient denies pain or difficulty breathing ROS unobtainable: Yes unobtainable due to mental status Exam Narrative: * GENERAL: Alert and oriented x 3. No acute distress. * EYES: PERRLA. * HEENT: Moist mucous membranes. * LUNGS: Clear to auscultation bilaterally. No accessory muscle use. * CARDIOVASCULAR: Regular rate and rhythm. No murmur. No JVD. S1-S2 * ABDOMEN: Soft, non tenderness and non-distended. No palpable masses. * EXTREMITIES: No edema. Non-tender * SKIN: No rashes or lesions. Skin warm, dry. * NEUROLOGIC: No focal neurological deficits. CN II-XII grossly intact * PSYCHIATRIC: Appropriate mood and affect. Good judgement and insight. Objective Data Vital Signs Vital Signs: Vital Signs - 24 hr 02/04/24 16:00 02/04/24 20:00 02/05/24 00:00 Temperature 98 F 97.7 F 97.6 F Pulse Rate 76 74 77 Respiratory Rate 18 18 12 Blood Pressure 91/59 L 102/46 L 123/62 Pulse Oximetry 100 98 95 Oxygen Delivery 02/04/24 20:00 02/05/24 04:00 02/05/24 08:00 Temperature 98.1 F 96 F L Pulse Rate 75 76 Respiratory Rate 14 17 Blood Pressure 133/89 131/55 L Pulse Oximetry 100 95 Oxygen Delivery Room Air 02/05/24 08:36 02/05/24 08:00 02/05/24 11:58 Temperature 96.1 F L Pulse Rate 75 75 79 Respiratory Rate 17 18 Blood Pressure 113/48 L Pulse Oximetry 95 98 Oxygen Delivery Room Air Intake/Output Intake/Output: Intake & Output 02/02/24 02/03/24 02/04/24 02/05/24 23:59 23:59 23:59 23:59 Intake Total 850 1750 3237 1540 Output Total 1999 2950 1300 950 Balance -1150 -1200 1937 590 Meds/Results Medications: Active Medications Generic Name Dose Route Start Last Admin Trade Name Freq PRN Reason Stop Dose Admin Acetaminophen 650 mg 01/30/24 18:56 02/04/24 16:50 Acetaminophen 325 Mg Tablet PO 650 mg Q6H PRN Administration Pain Rated 5 or Less Atorvastatin Calcium 40 mg 01/30/24 21:00 02/04/24 21:32 Atorvastatin 40 Mg Tablet PO 40 mg HS KASIE Administration Carvedilol 6.25 mg 01/30/24 21:00 02/05/24 08:36 Carvedilol 6.25 Mg Tablet PO 6.25 mg Q12HR KASIE Administration Dextrose 12.5 gm 01/31/24 00:00 02/02/24 08:55 Dextrose 50% 25 Gm/50 Ml Syringe IV PUSH 12.5 gm PRN PRN Administration Hypoglycemia Protocol Empagliflozin 10 mg 01/31/24 09:00 02/02/24 12:08 Empagliflozin 10 Mg Tablet PO Not Given DAILY KASIE Ferrous Sulfate 325 mg 01/31/24 12:00 02/04/24 16:42 Ferrous Sulfate [address] PO 325 mg 1200,1700 KASIE Administration Furosemide 40 mg 02/01/24 09:00 02/05/24 08:36 Furosemide 40 Mg Tablet PO 40 mg BID KASIE Administration Gabapentin 300 mg 01/30/24 22:00 02/05/24 05:00 Gabapentin 300 Mg Capsule PO 300 mg Q8HR KASIE Administration Glucagon 1 mg 01/31/24 00:00 Glucagon For Inj 1 Mg Vial IM PRN PRN Hypoglycemia Protocol Glucose 15 gm 01/31/24 00:00 Glucose Oral Gel 15 Gm Of Glucse In 37.5 Gm Tube PO PRN PRN Hypoglycemia Protocol Heparin Sodium (Porcine) 5,000 units 02/01/24 21:00 02/05/24 08:36 Heparin Sodium 5,000 Units/Ml Vial SUB-Q 5,000 units Q12HR KASIE Administration Dextrose 1,000 mls @ 100 mls/hr 01/31/24 00:00 Dextrose 5% 1,000 Ml IVPB PRN PRN Hypoglycemia Protocol Meropenem 1 gm in 100 mls @ 200 mls/hr 02/01/24 16:00 02/05/24 05:29 IVPB Infused 0500,1700 KASIE Infusion Insulin Aspart 0 units 01/31/24 08:00 02/05/24 13:58 Insulin Aspart (*Bkc) 100 Units/Ml SUB-Q 6 units ACINSULIN KASIE Administration Protocol Levothyroxine Sodium 100 mcg 01/31/24 06:30 02/05/24 05:00 Levothyroxine Sodium 100 Mcg Tablet PO 100 mcg DAILY@0630 KASIE Administration Ondansetron HCl 4 mg 01/30/24 18:59 Ondansetron Inj 4 Mg/2 Ml Vial IV PUSH Q6H PRN Nausea And Vomiting Pantoprazole Sodium 20 mg 01/31/24 09:00 02/05/24 08:36 Pantoprazole Sod Sesquihydrate 20 Mg Tab PO 20 mg QAM KASIE Administration Potassium Chloride 10 meq 01/31/24 09:00 02/05/24 08:36 Potassium Chloride 10 Meq Er Tablet PO 10 meq DAILY KASIE Administration Sacubitril/Valsartan 1 tab 01/30/24 21:00 02/05/24 08:36 Sacubitril/Valsartan 24-26 Mg Tablet PO 1 tab Q12H KASIE Administration Sodium Chloride 10 ml 02/03/24 14:00 02/05/24 05:07 Central Line Flush IV PUSH 10 ml Q8HR KASIE Administration Sodium Chloride 10 ml 02/03/24 09:59 Central Line Flush IV PUSH PRN PRN with TPN bag changes Sodium Chloride 20 ml 02/03/24 09:59 Central Line Flush IV PUSH PRN PRN after blood draws Tramadol HCl 50 mg 01/30/24 18:56 02/04/24 16:50 Tramadol Hcl (*Crx) 50 Mg Tablet PO 50 mg Q8H PRN Administration Pain Rated 6 or Greater Radiology Results: ITS Impressions Chest X-Ray 01/30/24 13:15 IMPRESSION: Cardiomegaly with cardiac decompensation and pulmonary edema. Superimposed pneumonitis is not excluded. Left lower lobe atelectasis versus pneumonia. Possibility of effusion excluded. Abdomen/Pelvis CT 01/30/24 14:48 IMPRESSION: 1. Rectal tube in expected position with mild rectal wall thickening and perirectal inflammatory stranding suggestive of mild proctitis. 2. Likely cystitis with ascending left urinary tract infection. 3. Soft tissue gas at the right breast which appears intravascular potentially intravenous related to IV catheter placement. Correlate with clinical history. 4. Recommend with chronic small pericardial effusion. 5. Likely proctitis which could related to stercoral colitis or the presence of a rectal tube. 6. Widened pubic symphysis with irregular cortical contours with gas tracking from the pubic symphysis to the urethra which is suspicious for fistulous communication and secondary chronic osteomyelitis. Chest CT 01/30/24 15:44 IMPRESSION: 1. Venous gas in anterior chest wall, likely from IV injection, likely not clinically significant. 2. Mild pulmonary edema. 3. Small pericardial effusion. 4. Cardiomegaly. 5. 6.7 cm fluid collection in right breast that is chronic, likely a seroma. Pelvis MRI 01/31/24 16:18 IMPRESSION: 1. Chronic osteomyelitis at the pubic symphysis. 2. Wall thickening of the rectosigmoid, consistent with colitis. 3. 9.3 cm fluid collection in anterior abdominal wall, likely a seroma. Breast Ultrasound 02/01/24 13:41 IMPRESSION: Chronic calcified avascular collection within the soft tissues of the right breast, decreased in size when compared with chest radiograph dated 12/05/2021, for which no further follow-up is needed. Labs Labs: Laboratory Results - last 24 hr 02/04/24 02/04/24 02/05/24 16:31 19:13 04:59 WBC 5.7 RBC 3.38 L Hgb 10.2 L Hct 33.4 L MCV 98.8 MCH 30.2 MCHC 30.5 L RDW 17.6 H Plt Count 247 MPV 9.9 Sodium 136 L Potassium 3.9 Chloride 99 Carbon Dioxide 31 H Anion Gap 6 BUN 28 H Creatinine 1.10 H Estim Creat Clear Calc 41 Estimated GFR 60 Glucose 171 H POC Capillary Glucose 141 H 169 H Calcium 7.9 L Total Bilirubin 0.5 AST 24 ALT 13 Alkaline Phosphatase 77 Total Protein 7.0 Albumin 3.0 L 02/05/24 02/05/24 07:33 11:22 WBC RBC Hgb Hct MCV MCH MCHC RDW Plt Count MPV Sodium Potassium Chloride Carbon Dioxide Anion Gap BUN Creatinine Estim Creat Clear Calc Estimated GFR Glucose POC Capillary Glucose 181 H 229 H Calcium Total Bilirubin AST ALT Alkaline Phosphatase Total Protein Albumin Quality VTE Prophylaxis VTE prophylaxis: pharmacologic ordered -Patient's previous records reviewed on admission -ER notes reviewed in detail on admission -discussed all findings and current treatment plan with patient/Family/POA -Consultations reviewed for recommendations -Patient's disposition for safe discharge discussed with caser shoe parts Dictation performed by [employer] direct speech recognition software, therefore computational mathematician variants and typographical errors may occur. Hospitalist MIPS Advance Care Plan I have confirmed that the patient's Advanced Care Plan is present, code status is documented, or surrogate decision maker is listed in patient medical record.: Yes Medication Reconciliation I have utilized all available resources to obtain, update and review the patients current medications (includes all prescriptions, OTC, herbals, cannabis, and nutritional supplements).: Yes The patient is not eligible for med reconciliation; the patient is in a emergent medical situation where delaying treatment would jeopardize the patients health.: No
[2024-02-05 16:33] LABS: Glucose Point of Care 145 mg/dl (65-105)
[2024-02-05] MEDS: DEXTROSE 50% 25 GM/50 ML SYRINGE IV PUSH ×2 (20:30→23:58)
[2024-02-05 20:45] LABS: Glucose Point of Care 218 mg/dl (65-105)
[2024-02-05 20:45] LABS: Glucose Point of Care 62 mg/dl (65-105)
--- NOTE | 2024-02-05 20:50 | P.PNCROSS_ITS ---
Event Note Event Note Event Note: Patient with altered level of consciousness and hypoglycemia. During stay yon ent has had several episodes of hypoglycemia. She is on a high dose SSI at home which had been continued in hospital. Her Jardiance has been on hold. Will change to low dose SSI. CT head unremarkable. One view CXR shows mild interstitial edema and left sided pleural effusion. Ordered Lasix 40 mg IV. Patient will open eyes but not speaking to staff. Oxygen in place for hypoxia. Placed patient on Telemetry and continuous pulse oximetry. ICU/IMU staff stated that patient had several episodes like this over the last week where she wouldn't respond for a while and then was back to normal the next morning. Patient does have dementia history. VBG shows minor respiratory alkalosis with pH 7.482 and pCO2 36.8 with HCO3 26.9. Unable to get ABG due to difficult to palpate radial pulse and limb alert left arm. Remainder of labs unremarkable/unchanged from prior except slight drop in sodium to 133. Consider MRI in the morning if patient not awake. Due to a high probability of clinically significant, life threatening deterioration, the patient required my highest level of preparedness to intervene emergently and I personally spent this critical care time directly and personally managing the patient. This critical care time included obtaining a history; examining the patient; pulse oximetry; ordering and review of studies; arranging urgent treatment with development of a management plan; evaluation of patient's response to treatment; frequent reassessment; and discussions with other providers. It was exclusive of separately billable procedures and treating other patients and teaching time. Please see Assessment and Plan section and the rest of the note for further information on patient assessment and treatment. Critical Care time: 35 minutes EXAMINATION: XR chest 1V Exam Date/Time: 02/05/2024 21:25 CUSTOMER SERVICE TECHNICIAN HISTORY: hypoxia Comparison: 01/30/2024; CT chest 01/30/2024. RESULT: Lines, tubes, and devices: None. Lungs and pleura: Stable appearing opacity in the left lower lung likely secondary to cardiomegaly/pericardial effusion demonstrated in the prior CT. Mild diffuse reticular opacities with indistinct vessels. Minor fissure fluid. Cardiomediastinal silhouette: Stable. Other: No acute osseous or upper abdominal finding. Calcified right breast mass. IMPRESSION: Mild interstitial edema. Reviewed, dictated and finalized at location K. OMER SERVICE TECHNICIAN EXAMINATION: CT brain wo con DATE: 02/05/2024 21:26 INDICATION: AMS . TECHNIQUE: Computed tomography (CT) of the head was performed without intravenous contrast. The mA was adjusted according to patient size. Iterative reconstruction technique was employed. The dose-length product was 605.33 mGy- cm. COMPARISON: 01/10/2024. FINDINGS: No acute intracranial hemorrhage or extra-axial fluid collection. No hydrocephalus, mass, or herniation. No acute ischemic infarct. Unremarkable dural venous sinus attenuation. No acute osseous abnormality. Bilateral mastoid fluid, the remaining aerated spaces are clear. Mild atrophy and chronic white matter change. Atherosclerotic intracranial calcification. Bilateral basal ganglia and cerebellar calcifications. IMPRESSION: No acute intracranial process. Reviewed, dictated and finalized at location K. OMER SERVICE TECHNICIAN Dictation performed by [employer] direct speech recognition software, therefore factory machine computer operator variants and typographical errors may occur.
[2024-02-05 21:16] LABS: Fractional Inspired Oxygen 28 %; HCO3 VBG 26.9 mEq/l (24.0-30.0); PCO2 VBG 36.8 mmHg (42.0-48.0); PO2 VBG 32.3 mmHg (35.0-45.0)
[2024-02-05 21:19] LABS: Device NASAL CANNULA; pH VBG 7.482 (7.300-7.400)
[2024-02-05 21:21] LABS: Basophils Percent Auto 0.5 % (0.2-1.2); Eosinophils Absolute Auto 0.1 K/mm3 (0-0.3); Eosinophils Percent Auto 1.1 % (0-4.4); Hematocrit 34.4 % (37.0-47.0); Hemoglobin 10.9 g/dL (12.0-15.0); Immature Granulocyte Absolute 0.04 K/mm3 (0.00-0.031); Immature Granulocyte Percent A 0.5 % (0-0.5); Lymphocytes Absolute Auto 0.82 K/mm3 (0.9-3.2); Lymphocytes Percent Auto 9.6 % (18.3-44.2); Mean Corpuscular HGB Conc 31.7 g/dl (32-36); Mean Corpuscular Hemoglobin 30.5 pg (26-34); Mean Corpuscular Volume 96.4 fl (80-100); Mean Platelet Volume 9.6 fl (7.4-10.4); Monocytes Absolute Auto 0.4 K/mm3 (0.1-0.6); Monocytes Percent Auto 5.1 % (2.6-8.5); Neutrophils Absolute Auto 7.1 K/mm3 (1.3-6.7); Neutrophils Percent Auto 83.2 % (45.5-73.1); Platelet Count Result 263 k/mm3 (150-375); Red Blood Count 3.57 M/mm3 (4.2-5.4); Red Cell Distribution Width 17.4 % (11.5-14.5); White Blood Count 8.6 K/mm3 (4.5-10.0)
[2024-02-05 21:31] LABS: Alanine Aminotransferase 12 U/L (6-35); Albumin Level 3.2 g/dL (3.5-5.1); Alkaline Phosphatase 46 U/L (38-126); Anion Gap 5 mmol/L (4-12); Aspartate Amino Transferase 25 U/L (14-36); Bilirubin,Total 0.6 mg/dL (0.2-1.3); Blood Urea Nitrogen 29 mg/dL (7-17); Carbon Dioxide 30 mmol/L (22-30); Chloride 98 mmol/L (98-107); Estimated CRCL calculation 42 ml/min; Estimated Glomerular Filt Rate 60; Glucose 96 mg/dL (65-110); Magnesium 1.7 mg/dL (1.6-2.3); Phosphorus 3.2 mg/dL (2.5-4.5); Potassium 4.2 mmol/L (3.4-5.0); Sodium 133 mmol/L (137-145)
[2024-02-05 21:32] LABS: INR 1.5; Partial Thromboplastin Time 31.3 Seconds (22.3-36.8); Prothrombin Time 18.5 Seconds (11.1-14.7)
[2024-02-05] MEDS: FUROSEMIDE INJ 40 MG/4 ML VIAL IV PUSH (23:55)
[2024-02-06] VITALS (9 sets, daily range): BP systolic 120–142; BP diastolic 57–71; PULSE 62–85; RESP 14–22; TEMP 36.1–36.9; O2SAT 96–100
[2024-02-06 00:22] LABS: Glucose Point of Care 221 mg/dl (65-105)
[2024-02-06 00:22] LABS: Glucose Point of Care 63 mg/dl (65-105)
--- NOTE | 2024-02-06 01:00 | PCRCNOTE ---
Patient's radial pulse was difficult to palpate, along with having a limb alert on her other arm. Per Dr Stringer, an order for a VBG was ordered at 21:06 and the ABG order was discontinued at 20:41 on 02/05/24. RN mary.
[2024-02-06] MEDS: CENTRAL LINE FLUSH 10 ML IV PUSH ×4 (01:22→20:37)
--- NOTE | 2024-02-06 01:24 | PC.NURSE ---
pt unable to swallow pills at this time
[2024-02-06 02:14] LABS: Glucose Point of Care 92 mg/dl (65-105)
[2024-02-06] MEDS: MEROPENEM 1 GM/NS 100 ML 1 GM/100 ML BAG IVPB ×2 (04:37→18:18)
[2024-02-06 04:58] LABS: Glucose Point of Care 120 mg/dl (65-105)
[2024-02-06] MEDS: LEVOTHYROXINE SODIUM 100 MCG TABLET PO (05:28)
[2024-02-06] MEDS: GABAPENTIN 300 MG CAPSULE PO (05:28)
[2024-02-06] MEDS: ACETAMINOPHEN 325 MG TABLET 650 MG PO (05:29)
[2024-02-06 05:46] LABS: Hematocrit 31.7 % (37.0-47.0); Hemoglobin 10.1 g/dL (12.0-15.0); Mean Corpuscular HGB Conc 31.9 g/dl (32-36); Mean Corpuscular Hemoglobin 30.5 pg (26-34); Mean Corpuscular Volume 95.8 fl (80-100); Mean Platelet Volume 9.3 fl (7.4-10.4); Platelet Count Result 241 k/mm3 (150-375); Red Blood Count 3.31 M/mm3 (4.2-5.4); Red Cell Distribution Width 17.2 % (11.5-14.5)
[2024-02-06 06:02] LABS: Alanine Aminotransferase 12 U/L (6-35); Albumin Level 2.9 g/dL (3.5-5.1); Alkaline Phosphatase 46 U/L (38-126); Anion Gap 4 mmol/L (4-12); Aspartate Amino Transferase 26 U/L (14-36); Bilirubin,Total 0.7 mg/dL (0.2-1.3); Blood Urea Nitrogen 28 mg/dL (7-17); Calcium 7.7 mg/dL (8.4-10.2); Carbon Dioxide 32 mmol/L (22-30); Chloride 98 mmol/L (98-107); Estimated CRCL calculation 38 ml/min; Estimated Glomerular Filt Rate 54; Glucose 154 mg/dL (65-110); Potassium 3.5 mmol/L (3.4-5.0); Sodium 134 mmol/L (137-145)
[2024-02-06 07:41] LABS: Glucose Point of Care 167 mg/dl (65-105)
[2024-02-06] MEDS: SACUBITRIL/VALSARTAN 24-26 MG TABLET 1 TAB PO ×2 (08:20→20:36)
[2024-02-06] MEDS: FUROSEMIDE 40 MG TABLET PO ×2 (08:20→18:17)
[2024-02-06] MEDS: carvediloL 6.25 MG TABLET PO ×2 (08:20→20:36)
[2024-02-06] MEDS: POTASSIUM CHLORIDE 10 MEQ ER TABLET PO (08:20)
[2024-02-06] MEDS: PANTOPRAZOLE SOD SESQUIHYDRATE 20 MG TAB PO (08:20)
[2024-02-06] MEDS: HEPARIN SODIUM 5,000 UNITS/ML VIAL 5000 UNITS SUB-Q ×2 (08:21→20:36)
[2024-02-06 11:47] LABS: Glucose Point of Care 189 mg/dl (65-105)
--- NOTE | 2024-02-06 12:22 | P.PNIM_ITS ---
Progress Note: A&P Assessment and Plan (1) AMS (altered mental status): Code(s): R41.82 - Altered mental status, unspecified Status: Acute Assessment and Plan: * intermittent episodes of AMS/lethargic * BS during one episode 67/BS normal during second * only responding to sternal rub * CT head no intracranial procress * MR brain pending (2) Diarrhea: Code(s): R19.7 - Diarrhea, unspecified Status: Acute Assessment and Plan: * New episodes of diarrhea * Patient has been and will be on assisted IV ABX therapy * C-diff pending * add probiotic * Will start oral Vanc if c-diff + * possible fecal management system to reduce skin breakdown and pressure ulcers patient is bedridden (3) Combined systolic and diastolic congestive heart failure: Qualifiers: Heart failure chronicity: acute on chronic Qualified Code(s): I50.43 - Acute on chronic combined systolic (congestive) and diastolic (congestive) heart failure Code(s): I50.40 - Unspecified combined systolic (congestive) and diastolic (congestive) heart failure Status: Acute Assessment and Plan: Acute on chronic Combined HF * BNP * cardiology consulted * IV Lasix b.i.d. transitioned back to her PO home dose * monitor renal function during diuresis * previous echocardiogram results: with severe global LV systolic dysfunction (25-30% EF), Grade 3-4 diastolic dysfunction, elevated LAP, mild RV enlargement with hypokinesis, mild MR, mild and AI, mild pHTN (41 RVSP) and mild-mod pericardial effusion but no tamponade. (Echo EF 20-25% in 2021) * echocardiogram pending * EKG: showing NSR with first degree AVB, LAD, age indeterminate anteroseptal infarct and ST-T wave changes in the high lateral leads. * chest x-ray: pulmonary edema * Daily weight. * elevate/Rashel wrap legs if needed * Continue home medications including Entresto and Coreg. Held off on Spironolactone since BP soft. Empagliflozin on hold due to hypoglycemia * Optimize blood pressure less than 130/80. * Fall risk assessment. (4) Acute UTI: Code(s): N39.0 - Urinary tract infection, site not specified Status: Acute Assessment and Plan: * UA is consistent with UTI. UCx collected. * Rocephin started. UCx growing ESBL EColi with 10-49K colonies. * CT scan showing mild bilateral renal cortical atrophy. Gas and a Reyes catheter within the decompressed bladder. There is wall thickening of the bladder and mild stranding in the immediately surrounding fat suspicious for cystitis which could be either acute or chronic. There is gas within the left ureter, renal pelvis and calyces with peripheral enhancing urothelium suspicious for ascending UTI. 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 * Rocephin changed to meropenem. Urology consulted and recommendations reviewed. 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 * Small colony count but will need to treat this since she could have an ascending UTI and fistula. No plans for surgical repair of fistula. Continue IV abx 02/04/2024: * Plan for assisted reyes catheter during treatment phase and can follow-up with urology outpatient for possible removal when completed (5) Osteomyelitis: Code(s): M86.9 - Osteomyelitis, unspecified Status: Acute Assessment and Plan: * CT scan showing a widened pubic symphysis with irregular cortical contours w ith gas tracking from the pubic symphysis to the urethra which is suspicious for fistulous communication and secondary chronic osteomyelitis. 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 * WBC normal. UCx growing ESBL Ecoli. BCx NGTD. CRP trending down with meropenem. * Jasper to be chronic osteomyelitis. 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 * Urology consulted and appreciate their input. They did not recommend an exhaustive evaluation or repair of the urethral fistula and felt the best options may be chronic urinary drainage. 02/04/24: * Plan will be to speak with IR regarding pubic bone biopsy is possible to identify organism of OM if unable to perform will speak with our ID regarding OM coverage with 6 weeks Vanc vs possible Linzilid and also treat for ascending UTI for 6 weeks on ertapenem. * PICC line in place * Patient from [facility] * CC consulted to assist * Pending treatment plans patient will need to discharge with chronic reyes during treatment removing could result in treatment failure and recurrent UTI's * Blood cultures still NGTD 02/05/24: * Waiting on decision of bone biopsy * spoke with ID about IV ABX/vanc and ertapenem 6 weeks of no biopsy or ertapenem 6 weeks if bone biopsy completed and no Gram-positive grows. 02/06/2024: * Spoke with IR no biopsy low percentage to get a clean biopsy * Patient will need to be discharged on ertapenem/vancomycin x6 weeks, will need labs weekly and vanc trough. (6) Colitis: Code(s): K52.9 - Noninfective gastroenteritis and colitis, unspecified Status: Acute Assessment and Plan: * Patient with diarrhea. CT showing mild rectal wall thickening and perirectal inflammatory stranding consistent with mild proctitis. * Fecal containment system placed but stool output declining so this has since been removed * Stool is negative for C diff. Stool cx negative. Diarrhea resolving * Continue Flagyl and meropenem. 02/04/24: * Improving 02/06/24: * Diarrhea returned with odor * has been on assisted IV ABX therapy * C-diff pending * added probiotic (7) Acute kidney injury: Code(s): N17.9 - Acute kidney failure, unspecified Status: Acute Assessment and Plan: * Labs show Cr 1.2, BUN 44 and eGFR 54, with usual baseline Cr 0.7-0.9 and eGFR >60 * CT Abd/Pelvis was with contrast. ABDIRASHID related to UTI, chronic infection, poor renal perfusion from low EF and/or ATN. * Cr slightly worsen with diuresis for fluid overload in CHF exacerbation with Cr 1.2, BUN 39 and CrCl 37 * Changed to oral Lasix. Cr better at 1. * Monitor renal function, electrolytes and UOP 02/04/24: * small bump in Cr 1.10 * renal function daily (8) Type 2 diabetes mellitus with hyperglycemia: Code(s): E11.65 - Type 2 diabetes mellitus with hyperglycemia Status: Acute Assessment and Plan: * Accu-Cheks a.c. HS * sliding scale insulin * She has been having episodes of hypoglycemia so Lantus stopped and Empagliflozin on hold. * Hemoglobin A1c Recent A1c 7.5 * lipid panel pending * Diabetic diet * Watch for hypoglycemia/hypoglycemic protocol ordered 02/06/24: * Episode of hypoglycemia * Long acting held at this time * SS (9) HTN (hypertension): Qualifiers: Hypertension type: unspecified Qualified Code(s): I10 - Essential (primary) hypertension Code(s): I10 - Essential (primary) hypertension Status: Chronic Assessment and Plan: * Patient's blood pressure was reviewed on 02/03 * Blood pressure remains well controlled. * Will continue current medications. (10) Abdominal wall fluid collections: Code(s): R18.8 - Other ascites Status: Acute Assessment and Plan: * She has a partially rim calcified loculated subcutaneous fluid collection superficial to the mesh repair which measures 14.7 x 10.1 x 7.2 cm maximal transaxial dimensions. * CT scan from 2022 measured it as 15.3 x 8.9 x 6.5 cm rim calcified fluid collection so appears slightly larger. * Jasper to be chronic. (11) Abnormal breast finding: Code(s): N64.59 - Other signs and symptoms in breast Status: Acute Assessment and Plan: * She has a 6.7 cm fluid collection in right breast that is chronic, likely a seroma noted by imaging. * US showing chronic fluid collection that is smaller from 2021 * Jasper to be chronic. L (12) S/P AKA (above knee amputation) bilateral: Code(s): Z89.611 - Acquired absence of right leg above knee; Z89.612 - Acquired absence of left leg above knee Status: Acute Assessment and Plan: * Due to DM. * Q2 turns * off load * Monitor for skin breakdown Plan Code status: Full code per patient DVT prophylaxis: Heparin Stress ulcer prophylaxis: Protonix 40 daily PT/OT notes: BLE BKA Disposition: Patient continues admission to the medical unit ascending urinary tract infection and pubic osteomyelitis plan is to return back to [facility] on long-term IV antibiotic therapy PICC in place she will need 6 weeks ertapenem and vancomycin currently waiting on MRI due to for intermittent episodes altered mental status as well as C diff sample pending. Hopefully patient can discharge to [facility] facility tomorrow. Time Spent With Patient Time with patient: 15 - 25 minutes Subjective Date/time seen: 02/06/24 12:22 Interval history: 69yo female with dementia, CHF, HTN, CAD and DM here for altered mental status. Found to have urinary tract infection pubic symphysis osteomyelitis 02/05/24: Assumed Care Patient lethargic only responding to painful stimuli and sternal rubs, RR was called last night for same episode and was found to have hypoglycemia, CT head negative. Staff reported she was alert and asking for breakfast earlier, BS was stable at time of assessment. Review of Systems Review of Systems: Lethargic ROS unobtainable: Yes unobtainable due to mental status Exam Narrative: * GENERAL: lethargic only responded to sternal rub. No acute distress. * EYES: PERRLA. * HEENT: Moist mucous membranes. * LUNGS: Clear to auscultation bilaterally. No accessory muscle use. * CARDIOVASCULAR: Regular rate and rhythm. No murmur. No JVD. S1-S2 * ABDOMEN: Soft, non tenderness and non-distended. No palpable masses. * EXTREMITIES: No edema. Non-tender * SKIN: No rashes or lesions. Skin warm, dry. * NEUROLOGIC: No focal neurological deficits. CN II-XII grossly intact * PSYCHIATRIC: Appropriate mood and affect. Good judgement and insight. Objective Data Vital Signs Vital Signs: Vital Signs - 24 hr 02/05/24 16:00 02/05/24 20:00 02/06/24 00:00 Temperature 100 F H 98.7 F 98.5 F Pulse Rate 90 95 84 Respiratory Rate 16 24 H 22 H Blood Pressure 142/64 H 140/64 132/57 L Pulse Oximetry 100 90 96 Oxygen Delivery Oxygen Flow Rate 02/05/24 20:33 02/06/24 00:00 02/06/24 04:00 Temperature Pulse Rate 95 85 80 Respiratory Rate 20 Blood Pressure 140/57 L Pulse Oximetry 99 Oxygen Delivery Nasal Cannula Oxygen Flow Rate 2 02/06/24 04:00 02/06/24 07:49 02/06/24 08:20 Temperature 98.1 F 97.6 F Pulse Rate 79 73 80 Respiratory Rate 20 20 Blood Pressure 129/59 L 128/71 Pulse Oximetry 97 99 Oxygen Delivery Oxygen Flow Rate 02/06/24 08:00 02/06/24 08:00 Temperature Pulse Rate 80 Respiratory Rate Blood Pressure Pulse Oximetry Oxygen Delivery Room Air Oxygen Flow Rate Intake/Output Intake/Output: Intake & Output 02/03/24 02/04/24 02/05/24 02/06/24 23:59 23:59 23:59 23:59 Intake Total 1750 3237 1640 465 Output Total 2950 1300 2350 925 Balance -1200 4437 -710 -460 Meds/Results Medications: Active Medications Generic Name Dose Route Start Last Admin Trade Name Freq PRN Reason Stop Dose Admin Acetaminophen 650 mg 01/30/24 18:56 02/06/24 05:29 Acetaminophen 325 Mg Tablet PO 650 mg Q6H PRN Administration Pain Rated 5 or Less Atorvastatin Calcium 40 mg 01/30/24 21:00 02/05/24 21:00 Atorvastatin 40 Mg Tablet PO Not Given [facility] Carvedilol 6.25 mg 01/30/24 21:00 02/06/24 08:20 Carvedilol 6.25 Mg Tablet PO 6.25 mg Q12HR KASIE Administration Dextrose 12.5 gm 01/31/24 00:00 02/05/24 23:58 Dextrose 50% 25 Gm/50 Ml Syringe IV PUSH 12.5 gm PRN PRN Administration Hypoglycemia Protocol Empagliflozin 10 mg 01/31/24 09:00 02/02/24 12:08 Empagliflozin 10 Mg Tablet PO Not Given DAILY KASIE Ferrous Sulfate 325 mg 01/31/24 12:00 02/05/24 16:48 Ferrous Sulfate [address] PO 325 mg 1200,1700 KASIE Administration Furosemide 40 mg 02/01/24 09:00 02/06/24 08:20 Furosemide 40 Mg Tablet PO 40 mg BID KASIE Administration Gabapentin 300 mg 01/30/24 22:00 02/06/24 05:28 Gabapentin 300 Mg Capsule PO 300 mg Q8HR KASIE Administration Glucagon 1 mg 01/31/24 00:00 Glucagon For Inj 1 Mg Vial IM PRN PRN Hypoglycemia Protocol Glucose 15 gm 01/31/24 00:00 Glucose Oral Gel 15 Gm Of Glucse In 37.5 Gm Tube PO PRN PRN Hypoglycemia Protocol Heparin Sodium (Porcine) 5,000 units 02/01/24 21:00 02/06/24 08:21 Heparin Sodium 5,000 Units/Ml Vial SUB-Q 5,000 units Q12HR KASIE Administration Dextrose 1,000 mls @ 100 mls/hr 01/31/24 00:00 Dextrose 5% 1,000 Ml IVPB PRN PRN Hypoglycemia Protocol Meropenem 1 gm in 100 mls @ 200 mls/hr 02/01/24 16:00 02/06/24 04:37 IVPB 200 mls/hr 0500,1700 KASIE Administration Insulin Aspart 2 - 5 units 02/06/24 08:00 02/06/24 08:22 Insulin Aspart (*Bkc) 100 Units/Ml SUB-Q Not Given TIDWM [facility] Protocol Levothyroxine Sodium 100 mcg 01/31/24 06:30 02/06/24 05:28 Levothyroxine Sodium 100 Mcg Tablet PO 100 mcg DAILY@0630 KASIE Administration Ondansetron HCl 4 mg 01/30/24 18:59 Ondansetron Inj 4 Mg/2 Ml Vial IV PUSH Q6H PRN Nausea And Vomiting Pantoprazole Sodium 20 mg 01/31/24 09:00 02/06/24 08:20 Pantoprazole Sod Sesquihydrate 20 Mg Tab PO 20 mg QAM KASIE Administration Potassium Chloride 10 meq 01/31/24 09:00 02/06/24 08:20 Potassium Chloride 10 Meq Er Tablet PO 10 meq DAILY KASIE Administration Sacubitril/Valsartan 1 tab 01/30/24 21:00 02/06/24 08:20 Sacubitril/Valsartan 24-26 Mg Tablet PO 1 tab Q12H KASIE Administration Sodium Chloride 10 ml 02/03/24 14:00 02/06/24 08:22 Central Line Flush IV PUSH 10 ml Q8HR KASIE Administration Sodium Chloride 10 ml 02/03/24 09:59 Central Line Flush IV PUSH PRN PRN with TPN bag changes Sodium Chloride 20 ml 02/03/24 09:59 Central Line Flush IV PUSH PRN PRN after blood draws Tramadol HCl 50 mg 01/30/24 18:56 02/04/24 16:50 Tramadol Hcl (*Crx) 50 Mg Tablet PO 50 mg Q8H PRN Administration Pain Rated 6 or Greater Radiology Results: ITS Impressions Abdomen/Pelvis CT 01/30/24 14:48 IMPRESSION: 1. Rectal tube in expected position with mild rectal wall thickening and perirectal inflammatory stranding suggestive of mild proctitis. 2. Likely cystitis with ascending left urinary tract infection. 3. Soft tissue gas at the right breast which appears intravascular potentially intravenous related to IV catheter placement. Correlate with clinical history. 4. Recommend with chronic small pericardial effusion. 5. Likely proctitis which could related to stercoral colitis or the presence of a rectal tube. 6. Widened pubic symphysis with irregular cortical contours with gas tracking from the pubic symphysis to the urethra which is suspicious for fistulous communication and secondary chronic osteomyelitis. Chest CT 01/30/24 15:44 IMPRESSION: 1. Venous gas in anterior chest wall, likely from IV injection, likely not clinically significant. 2. Mild pulmonary edema. 3. Small pericardial effusion. 4. Cardiomegaly. 5. 6.7 cm fluid collection in right breast that is chronic, likely a seroma. Pelvis MRI 01/31/24 16:18 IMPRESSION: 1. Chronic osteomyelitis at the pubic symphysis. 2. Wall thickening of the rectosigmoid, consistent with colitis. 3. 9.3 cm fluid collection in anterior abdominal wall, likely a seroma. Breast Ultrasound 02/01/24 13:41 IMPRESSION: Chronic calcified avascular collection within the soft tissues of the right breast, decreased in size when compared with chest radiograph dated 12/05/2021, for which no further follow-up is needed. Head CT 02/05/24 21:30 IMPRESSION: No acute intracranial process. Chest X-Ray 02/05/24 21:32 IMPRESSION: Mild interstitial edema. Labs Labs: Laboratory Results - last 24 hr 02/05/24 02/05/24 02/05/24 16:31 20:25 20:32 WBC RBC Hgb Hct MCV MCH MCHC RDW Plt Count MPV Immature Gran % (Auto) Neut % (Auto) Lymph % (Auto) Towns % (Auto) Eos % (Auto) Baso % (Auto) Lymph # (Auto) Towns # (Auto) Eos # (Auto) Baso # (Auto) Abs Immat Gran (auto) Absolute Neuts (auto) Absolute Nucleated RBC Nucleated RBC % PT INR APTT VBG pH VBG pCO2 VBG pO2 VBG HCO3 O2 Delivery Device O2 Liters/Min FiO2 Sodium Potassium Chloride Carbon Dioxide Anion Gap BUN Creatinine Estim Creat Clear Calc Estimated GFR Glucose POC Capillary Glucose 145 H 62 L 218 H Lactic Acid Calcium Phosphorus Magnesium Total Bilirubin AST ALT Alkaline Phosphatase Total Protein Albumin 02/05/24 02/05/24 02/05/24 21:10 21:12 23:55 WBC 8.6 RBC 3.57 L Hgb 10.9 L Hct 34.4 L MCV 96.4 MCH 30.5 MCHC 31.7 L RDW 17.4 H Plt Count 263 MPV 9.6 Immature Gran % (Auto) 0.5 Neut % (Auto) 83.2 H Lymph % (Auto) 9.6 L Towns % (Auto) 5.1 Eos % (Auto) 1.1 Baso % (Auto) 0.5 Lymph # (Auto) 0.82 L Towns # (Auto) 0.4 Eos # (Auto) 0.1 Baso # (Auto) 0.0 Abs Immat Gran (auto) 0.04 H Absolute Neuts (auto) 7.1 H Absolute Nucleated RBC 0.000 Nucleated RBC % 0.0 PT 18.5 H INR 1.5 APTT 31.3 VBG pH 7.482 H* VBG pCO2 36.8 L VBG pO2 32.3 L VBG HCO3 26.9 O2 Delivery Device Nasal cannula O2 Liters/Min 2.0 FiO2 28 Sodium 133 L Potassium 4.2 Chloride 98 Carbon Dioxide 30 Anion Gap 5 BUN 29 H Creatinine 1.10 H Estim Creat Clear Calc 42 Estimated GFR 60 Glucose 96 POC Capillary Glucose 63 L Lactic Acid 1.0 Calcium 8.0 L Phosphorus 3.2 Magnesium 1.7 Total Bilirubin 0.6 AST 25 ALT 12 Alkaline Phosphatase 46 Total Protein 8.0 Albumin 3.2 L 02/06/24 02/06/24 02/06/24 00:01 02:05 04:34 WBC RBC Hgb Hct MCV MCH MCHC RDW Plt Count MPV Immature Gran % (Auto) Neut % (Auto) Lymph % (Auto) Towns % (Auto) Eos % (Auto) Baso % (Auto) Lymph # (Auto) Towns # (Auto) Eos # (Auto) Baso # (Auto) Abs Immat Gran (auto) Absolute Neuts (auto) Absolute Nucleated RBC Nucleated RBC % PT INR APTT VBG pH VBG pCO2 VBG pO2 VBG HCO3 O2 Delivery Device O2 Liters/Min FiO2 Sodium Potassium Chloride Carbon Dioxide Anion Gap BUN Creatinine Estim Creat Clear Calc Estimated GFR Glucose POC Capillary Glucose 221 H 92 120 H Lactic Acid Calcium Phosphorus Magnesium Total Bilirubin AST ALT Alkaline Phosphatase Total Protein Albumin 02/06/24 02/06/24 02/06/24 05:37 07:38 11:43 WBC 7.0 RBC 3.31 L Hgb 10.1 L Hct 31.7 L MCV 95.8 MCH 30.5 MCHC 31.9 L RDW 17.2 H Plt Count 241 MPV 9.3 Immature Gran % (Auto) Neut % (Auto) Lymph % (Auto) Towns % (Auto) Eos % (Auto) Baso % (Auto) Lymph # (Auto) Towns # (Auto) Eos # (Auto) Baso # (Auto) Abs Immat Gran (auto) Absolute Neuts (auto) Absolute Nucleated RBC Nucleated RBC % PT INR APTT VBG pH VBG pCO2 VBG pO2 VBG HCO3 O2 Delivery Device O2 Liters/Min FiO2 Sodium 134 L Potassium 3.5 Chloride 98 Carbon Dioxide 32 H Anion Gap 4 BUN 28 H Creatinine 1.20 H Estim Creat Clear Calc 38 Estimated GFR 54 L Glucose 154 H POC Capillary Glucose 167 H 189 H Lactic Acid Calcium 7.7 L Phosphorus Magnesium Total Bilirubin 0.7 AST 26 ALT 12 Alkaline Phosphatase 46 Total Protein 7.0 Albumin 2.9 L Quality VTE Prophylaxis VTE prophylaxis: pharmacologic ordered -Patient's previous records reviewed on admission -ER notes reviewed in detail on admission -discussed all findings and current treatment plan with patient/Family/POA -Consultations reviewed for recommendations -Patient's disposition for safe discharge discussed with registered nurse hh case manager Dictation performed by [employer] direct speech recognition software, therefore pedigree tracer variants and typographical errors may occur. Hospitalist MIPS Advance Care Plan I have confirmed that the patient's Advanced Care Plan is present, code status is documented, or surrogate decision maker is listed in patient medical record.: Yes Medication Reconciliation I have utilized all available resources to obtain, update and review the patients current medications (includes all prescriptions, OTC, herbals, cannabis, and nutritional supplements).: Yes The patient is not eligible for med reconciliation; the patient is in a emergent medical situation where delaying treatment would jeopardize the patients health.: No
[2024-02-06] MEDS: FERROUS SULFATE 325 MG TABLET DR PO ×2 (14:42→18:17)
[2024-02-06] MEDS: ACIDOPHILUS/BULGARICUS CHEWABLE TABLET 1 TABLET PO ×3 (14:42→20:36)
[2024-02-06] MEDS: GABAPENTIN 100 MG CAPSULE PO ×2 (14:43→20:36)
[2024-02-06 15:35] LABS: Toxigenic C. Diff POSITIVE (NEGATIVE)
[2024-02-06 17:49] LABS: Glucose Point of Care 186 mg/dl (65-105)
[2024-02-06] MEDS: VANCOMYCIN HCL 125 MG ORAL CAPSULE PO (18:18)
[2024-02-06 20:16] LABS: Glucose Point of Care 282 mg/dl (65-105)
[2024-02-06] MEDS: ATORVASTATIN 40 MG TABLET PO (20:36)
[2024-02-07] VITALS (7 sets, daily range): BP systolic 92–134; BP diastolic 30–68; PULSE 64–85; RESP 14–22; TEMP 35.8–36.3; O2SAT 99–100
[2024-02-07] MEDS: VANCOMYCIN HCL 125 MG ORAL CAPSULE PO ×3 (00:17→18:50)
[2024-02-07 00:32] LABS: Glucose Point of Care 206 mg/dl (65-105)
[2024-02-07] MEDS: MEROPENEM 1 GM/NS 100 ML 1 GM/100 ML BAG IVPB ×2 (05:12→17:51)
[2024-02-07] MEDS: CENTRAL LINE FLUSH 10 ML IV PUSH ×2 (05:13→19:51)
[2024-02-07 05:30] LABS: Hematocrit 31.6 % (37.0-47.0); Mean Corpuscular HGB Conc 31.6 g/dl (32-36); Mean Corpuscular Hemoglobin 30.7 pg (26-34); Mean Corpuscular Volume 96.9 fl (80-100); Mean Platelet Volume 9.3 fl (7.4-10.4); Platelet Count Result 236 k/mm3 (150-375); Red Blood Count 3.26 M/mm3 (4.2-5.4); Red Cell Distribution Width 17.3 % (11.5-14.5); White Blood Count 5.3 K/mm3 (4.5-10.0)
[2024-02-07 05:32] LABS: Glucose Point of Care 177 mg/dl (65-105)
--- NOTE | 2024-02-07 05:37 | PC.NURSE ---
pt refused morning meds
[2024-02-07 05:41] LABS: Alanine Aminotransferase 10 U/L (6-35); Albumin Level 2.9 g/dL (3.5-5.1); Alkaline Phosphatase 50 U/L (38-126); Anion Gap 4 mmol/L (4-12); Aspartate Amino Transferase 21 U/L (14-36); Bilirubin,Total 0.6 mg/dL (0.2-1.3); Blood Urea Nitrogen 29 mg/dL (7-17); Calcium 7.6 mg/dL (8.4-10.2); Carbon Dioxide 32 mmol/L (22-30); Chloride 99 mmol/L (98-107); Estimated CRCL calculation 42 ml/min; Estimated Glomerular Filt Rate 60; Glucose 183 mg/dL (65-110); Potassium 3.4 mmol/L (3.4-5.0); Sodium 135 mmol/L (137-145)
[2024-02-07 07:32] LABS: Glucose Point of Care 172 mg/dl (65-105)
--- NOTE | 2024-02-07 08:57 | P.PNIM_ITS ---
Progress Note: A&P Assessment and Plan (1) AMS (altered mental status): Code(s): R41.82 - Altered mental status, unspecified Status: Acute Assessment and Plan: * intermittent episodes of AMS/lethargic * BS during one episode 67/BS normal during second * only responding to sternal rub * CT head no intracranial procress * MR brain pending (2) Diarrhea: Code(s): R19.7 - Diarrhea, unspecified Status: Acute Assessment and Plan: * New episodes of diarrhea * Patient has been and will be on jail IV ABX therapy * C-diff pending * add probiotic * Will start oral Vanc if c-diff + * possible fecal management system to reduce skin breakdown and pressure ulcers patient is bedridden (3) Combined systolic and diastolic congestive heart failure: Qualifiers: Heart failure chronicity: acute on chronic Qualified Code(s): I50.43 - Acute on chronic combined systolic (congestive) and diastolic (congestive) heart failure Code(s): I50.40 - Unspecified combined systolic (congestive) and diastolic (congestive) heart failure Status: Acute Assessment and Plan: Acute on chronic Combined HF * BNP * cardiology consulted * IV Lasix b.i.d. transitioned back to her PO home dose * monitor renal function during diuresis * previous echocardiogram results: with severe global LV systolic dysfunction (25-30% EF), Grade 3-4 diastolic dysfunction, elevated LAP, mild RV enlargement with hypokinesis, mild MR, mild and AI, mild pHTN (41 RVSP) and mild-mod pericardial effusion but no tamponade. (Echo EF 20-25% in 202) * echocardiogram pending * EKG: showing NSR with first degree AVB, LAD, age indeterminate anteroseptal infarct and ST-T wave changes in the high lateral leads. * chest x-ray: pulmonary edema * Daily weight. * elevate/Rashel wrap legs if needed * Continue home medications including Entresto and Coreg. Held off on Spironolactone since BP soft. Empagliflozin on hold due to hypoglycemia * Optimize blood pressure less than 130/80. * Fall risk assessment. (4) Acute UTI: Code(s): N39.0 - Urinary tract infection, site not specified Status: Acute Assessment and Plan: * UA is consistent with UTI. UCx collected. * Rocephin started. UCx growing ESBL EColi with 10-49K colonies. * CT scan showing mild bilateral renal cortical atrophy. Gas and a Reyes catheter within the decompressed bladder. There is wall thickening of the bladder and mild stranding in the immediately surrounding fat suspicious for cystitis which could be either acute or chronic. There is gas within the left ureter, renal pelvis and calyces with peripheral enhancing urothelium suspicious for ascending UTI. 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 * Rocephin changed to meropenem. Urology consulted and recommendations reviewed. 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 * Small colony count but will need to treat this since she could have an ascending UTI and fistula. No plans for surgical repair of fistula. Continue IV abx * Plan for jail Reyes catheter during treatment phase and can follow-up with urology outpatient for possible removal when completed (5) Osteomyelitis: Code(s): M86.9 - Osteomyelitis, unspecified Status: Acute Assessment and Plan: * CT scan showing a widened pubic symphysis with irregular cortical contours with gas tracking from the pubic symphysis to the urethra which is suspicious for fistulous communication and secondary chronic osteomyelitis. 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 * WBC normal. UCx growing ESBL Ecoli. BCx NGTD. CRP trending down with meropenem. * Lockridge to be chronic osteomyelitis. 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 * Urology consulted and appreciate their input. They did not recommend an exhaustive evaluation or repair of the urethral fistula and felt the best options may be chronic urinary drainage. 02/04/24: * Plan will be to speak with IR regarding pubic bone biopsy is possible to identify organism of OM if unable to perform will speak with our ID regarding OM coverage with 6 weeks Vanc vs possible Linzilid and also treat for ascending UTI for 6 weeks on ertapenem. * PICC line in place * Patient from [facility] * CC consulted to assist * Pending treatment plans patient will need to discharge with chronic reyes during treatment removing could result in treatment failure and recurrent UTI's * Blood cultures still NGTD 02/05/24: * Waiting on decision of bone biopsy * spoke with ID about IV ABX/vanc and ertapenem 6 weeks of no biopsy or ertapenem 6 weeks if bone biopsy completed and no Gram-positive grows. 02/06/2024: * Spoke with IR no biopsy low percentage to get a clean biopsy * Patient will need to be discharged on ertapenem/vancomycin x6 weeks, will need labs weekly and vanc trough. (6) Colitis: Code(s): K52.9 - Noninfective gastroenteritis and colitis, unspecified Status: Acute Assessment and Plan: * Patient with diarrhea. CT showing mild rectal wall thickening and perirectal inflammatory stranding consistent with mild proctitis. * Fecal containment system placed but stool output declining so this has since been removed * Stool is negative for C diff. Stool cx negative. Diarrhea resolving * Continue Flagyl and meropenem. 02/04/24: * Improving 02/06/24: * Diarrhea returned with odor * has been on jail IV ABX therapy * C-diff pending * added probiotic (7) Acute kidney injury: Code(s): N17.9 - Acute kidney failure, unspecified Status: Acute Assessment and Plan: * Labs show Cr 1.2, BUN 44 and eGFR 54, with usual baseline Cr 0.7-0.9 and eGFR >60 * CT Abd/Pelvis was with contrast. ABDIRASHID related to UTI, chronic infection, poor renal perfusion from low EF and/or ATN. * Cr slightly worsen with diuresis for fluid overload in CHF exacerbation with Cr 1.2, BUN 39 and CrCl 37 * Changed to oral Lasix. Cr better at 1. * Monitor renal function, electrolytes and UOP 02/04/24: * small bump in Cr 1.10 * renal function daily (8) Type 2 diabetes mellitus with hyperglycemia: Code(s): E11.65 - Type 2 diabetes mellitus with hyperglycemia Status: Acute Assessment and Plan: * Accu-Cheks a.c. HS * sliding scale insulin * She has been having episodes of hypoglycemia so Lantus stopped and Empagliflozin on hold. * Hemoglobin A1c Recent A1c 7.5 * lipid panel pending * Diabetic diet * Watch for hypoglycemia/hypoglycemic protocol ordered 02/06/24: * Episode of hypoglycemia * Long acting held at this time * SS (9) HTN (hypertension): Qualifiers: Hypertension type: unspecified Qualified Code(s): I10 - Essential (primary) hypertension Code(s): I10 - Essential (primary) hypertension Status: Chronic Assessment and Plan: * Patient's blood pressure was reviewed on 02/03 * Blood pressure remains well controlled. * Will continue current medications. (10) Abdominal wall fluid collections: Code(s): R18.8 - Other ascites Status: Acute Assessment and Plan: * She has a partially rim calcified loculated subcutaneous fluid collection superficial to the mesh repair which measures 14.7 x 10.1 x 7.2 cm maximal transaxial dimensions. * CT scan from 2022 measured it as 15.3 x 8.9 x 6.5 cm rim calcified fluid collection so appears slightly larger. * Lockridge to be chronic. (11) Abnormal breast finding: Code(s): N64.59 - Other signs and symptoms in breast Status: Acute Assessment and Plan: * She has a 6.7 cm fluid collection in right breast that is chronic, likely a seroma noted by imaging. * US showing chronic fluid collection that is smaller from 2021 * Lockridge to be chronic. (12) S/P AKA (above knee amputation) bilateral: Code(s): Z89.611 - Acquired absence of right leg above knee; Z89.612 - Acquired absence of left leg above knee Status: Acute Assessment and Plan: * Due to DM. * Q2 turns * off load * Monitor for skin breakdown Plan Code status: Full code per patient DVT prophylaxis: Heparin Stress ulcer prophylaxis: Protonix 40 daily PT/OT notes: BLE BKA Disposition: Patient continues admission to the medical unit ascending urinary tract infection and pubic osteomyelitis plan is to return back to senior living facility on long-term IV antibiotic therapy PICC in place she will need 6 weeks ertapenem and vancomycin currently waiting on MRI due to for intermittent episodes altered mental status as well as C diff sample pending. Hopefully patient can discharge to senior living facility tomorrow. Subjective Date/time seen: 02/07/24 08:57 Review of Systems Review of Systems: ROS unobtainable: Yes unobtainable due to mental status Objective Data Vital Signs Vital Signs: Vital Signs - 24 hr 02/06/24 12:00 02/06/24 16:00 02/06/24 16:00 Temperature 96.9 F L 96.9 F L Pulse Rate 70 62 81 Respiratory Rate 18 18 Blood Pressure 120/59 L 124/66 Pulse Oximetry 99 100 02/06/24 20:36 02/06/24 20:00 02/07/24 00:00 Temperature 97.7 F 97.4 F L Pulse Rate 73 73 74 Respiratory Rate 14 20 Blood Pressure 142/71 H 134/68 Pulse Oximetry 100 100 02/06/24 20:00 02/07/24 00:00 02/07/24 04:00 Temperature Pulse Rate 71 68 68 Respiratory Rate Blood Pressure Pulse Oximetry 02/07/24 04:00 02/07/24 07:54 Temperature 97.0 F L 96.8 F L Pulse Rate 68 64 Respiratory Rate 22 H 14 Blood Pressure 123/60 92/48 L Pulse Oximetry 100 100 Intake/Output Intake/Output: Intake & Output 02/04/24 02/05/24 02/06/24 02/07/24 23:59 23:59 23:59 23:59 Intake Total 3237 1640 785 450 Output Total 1300 2350 1925 550 Balance 1937 -710 -1140 -100 Meds/Results Medications: Active Medications Generic Name Dose Route Start Last Admin Trade Name Freq PRN Reason Stop Dose Admin Acetaminophen 650 mg 01/30/24 18:56 02/06/24 05:29 Acetaminophen 325 Mg Tablet PO 650 mg Q6H PRN Administration Pain Rated 5 or Less Atorvastatin Calcium 40 mg 01/30/24 21:00 02/06/24 20:36 Atorvastatin 40 Mg Tablet PO 40 mg HS KASIE Administration Carvedilol 6.25 mg 01/30/24 21:00 02/06/24 20:36 Carvedilol 6.25 Mg Tablet PO 6.25 mg Q12HR KASIE Administration Dextrose 12.5 gm 01/31/24 00:00 02/05/24 23:58 Dextrose 50% 25 Gm/50 Ml Syringe IV PUSH 12.5 gm PRN PRN Administration Hypoglycemia Protocol Empagliflozin 10 mg 01/31/24 09:00 02/02/24 12:08 Empagliflozin 10 Mg Tablet PO Not Given DAILY KASIE Ferrous Sulfate 325 mg 01/31/24 12:00 02/06/24 18:17 Ferrous Sulfate [address] PO 325 mg 1200,1700 KASIE Administration Furosemide 40 mg 02/01/24 09:00 02/06/24 18:17 Furosemide 40 Mg Tablet PO 40 mg BID KASIE Administration Gabapentin 100 mg 02/06/24 14:00 02/07/24 05:37 Gabapentin 100 Mg Capsule PO Not Given Q8HR KASIE Glucagon 1 mg 01/31/24 00:00 Glucagon For Inj 1 Mg Vial IM PRN PRN Hypoglycemia Protocol Glucose 15 gm 01/31/24 00:00 Glucose Oral Gel 15 Gm Of Glucse In 37.5 Gm Tube PO PRN PRN Hypoglycemia Protocol Heparin Sodium (Porcine) 5,000 units 02/01/24 21:00 02/06/24 20:36 Heparin Sodium 5,000 Units/Ml Vial SUB-Q 5,000 units Q12HR KASIE Administration Dextrose 1,000 mls @ 100 mls/hr 01/31/24 00:00 Dextrose 5% 1,000 Ml IVPB PRN PRN Hypoglycemia Protocol Meropenem 1 gm in 100 mls @ 200 mls/hr 02/01/24 16:00 02/07/24 05:12 IVPB 200 mls/hr 0500,1700 KASIE Administration Insulin Aspart 2 - 5 units 02/06/24 08:00 02/06/24 18:17 Insulin Aspart (*Bkc) 100 Units/Ml SUB-Q Not Given TIDWM KASIE Protocol Lactobacillus Acidophilus 1 tablet 02/06/24 13:00 02/06/24 20:36 Acidophilus/Bulgaricus Chewable Tablet PO 1 tablet QID KASIE Administration Levothyroxine Sodium 100 mcg 01/31/24 06:30 02/07/24 05:36 Levothyroxine Sodium 100 Mcg Tablet PO Not Given DAILY@0630 KASIE Ondansetron HCl 4 mg 01/30/24 18:59 Ondansetron Inj 4 Mg/2 Ml Vial IV PUSH Q6H PRN Nausea And Vomiting Potassium Chloride 10 meq 01/31/24 09:00 02/06/24 08:20 Potassium Chloride 10 Meq Er Tablet PO 10 meq DAILY KASIE Administration Sacubitril/Valsartan 1 tab 01/30/24 21:00 02/06/24 20:36 Sacubitril/Valsartan 24-26 Mg Tablet PO 1 tab Q12H KASIE Administration Sodium Chloride 10 ml 02/03/24 14:00 02/07/24 05:13 Central Line Flush IV PUSH 10 ml Q8HR KASIE Administration Sodium Chloride 10 ml 02/03/24 09:59 Central Line Flush IV PUSH PRN PRN with TPN bag changes Sodium Chloride 20 ml 02/03/24 09:59 Central Line Flush IV PUSH PRN PRN after blood draws Tramadol HCl 50 mg 11/19/24 18:56 02/04/24 16:50 Tramadol Hcl (*Crx) 50 Mg Tablet PO 50 mg Q8H PRN Administration Pain Rated 6 or Greater Vancomycin HCl 125 mg 02/06/24 18:00 02/07/24 05:37 Vancomycin Hcl 125 Mg Oral Capsule PO Not Given Q6HR KASIE Radiology Results: ITS Impressions Abdomen/Pelvis CT 01/30/24 14:48 IMPRESSION: 1. Rectal tube in expected position with mild rectal wall thickening and perirectal inflammatory stranding suggestive of mild proctitis. 2. Likely cystitis with ascending left urinary tract infection. 3. Soft tissue gas at the right breast which appears intravascular potentially intravenous related to IV catheter placement. Correlate with clinical history. 4. Recommend with chronic small pericardial effusion. 5. Likely proctitis which could related to stercoral colitis or the presence of a rectal tube. 6. Widened pubic symphysis with irregular cortical contours with gas tracking from the pubic symphysis to the urethra which is suspicious for fistulous communication and secondary chronic osteomyelitis. Chest CT 01/30/24 15:44 IMPRESSION: 1. Venous gas in anterior chest wall, likely from IV injection, likely not clinically significant. 2. Mild pulmonary edema. 3. Small pericardial effusion. 4. Cardiomegaly. 5. 6.7 cm fluid collection in right breast that is chronic, likely a seroma. Pelvis MRI 01/31/24 16:18 IMPRESSION: 1. Chronic osteomyelitis at the pubic symphysis. 2. Wall thickening of the rectosigmoid, consistent with colitis. 3. 9.3 cm fluid collection in anterior abdominal wall, likely a seroma. Breast Ultrasound 02/01/24 13:41 IMPRESSION: Chronic calcified avascular collection within the soft tissues of the right breast, decreased in size when compared with chest radiograph dated 12/05/2021, for which no further follow-up is needed. Head CT 02/05/24 21:30 IMPRESSION: No acute intracranial process. Chest X-Ray 02/05/24 21:32 IMPRESSION: Mild interstitial edema. Brain MRI 02/06/24 15:14 IMPRESSION: T2 and FLAIR hyperintense signal areas in the cerebellar peduncles with a few scattered lesions in the cerebral deep white matter which may indicate white matter disease. The lesion is seen in the left cerebellar peduncle is adjacent to the left acoustic nerve. No enhancement seen. Follow-up advised. Labs Labs: Laboratory Results - last 24 hr 02/06/24 02/06/24 02/06/24 11:43 13:47 17:38 WBC RBC Hgb Hct MCV MCH MCHC RDW Plt Count MPV Sodium Potassium Chloride Carbon Dioxide Anion Gap BUN Creatinine Estim Creat Clear Calc Estimated GFR Glucose POC Capillary Glucose 189 H 186 H Calcium Total Bilirubin AST ALT Alkaline Phosphatase Total Protein Albumin C. difficile (PCR) Positive A* 02/06/24 02/07/24 02/07/24 20:08 00:17 05:23 WBC 5.3 RBC 3.26 L Hgb 10.0 L Hct 31.6 L MCV 96.9 MCH 30.7 MCHC 31.6 L RDW 17.3 H Plt Count 236 MPV 9.3 Sodium 135 L Potassium 3.4 Chloride 99 Carbon Dioxide 32 H Anion Gap 4 BUN 29 H Creatinine 1.10 H Estim Creat Clear Calc 42 Estimated GFR 60 Glucose 183 H POC Capillary Glucose 282 H 206 H Calcium 7.6 L Total Bilirubin 0.6 AST 21 ALT 10 Alkaline Phosphatase 50 Total Protein 7.0 Albumin 2.9 L C. difficile (PCR) 02/07/24 02/07/24 05:29 07:29 WBC RBC Hgb Hct MCV MCH MCHC RDW Plt Count MPV Sodium Potassium Chloride Carbon Dioxide Anion Gap BUN Creatinine Estim Creat Clear Calc Estimated GFR Glucose POC Capillary Glucose 177 H 172 H Calcium Total Bilirubin AST ALT Alkaline Phosphatase Total Protein Albumin C. difficile (PCR) Quality VTE Prophylaxis VTE prophylaxis: pharmacologic ordered
[2024-02-07] MEDS: ACIDOPHILUS/BULGARICUS CHEWABLE TABLET 1 TABLET PO ×3 (08:58→13:51)
[2024-02-07] MEDS: POTASSIUM CHLORIDE 10 MEQ ER TABLET PO (08:58)
[2024-02-07] MEDS: FUROSEMIDE 40 MG TABLET PO ×2 (08:58→17:50)
[2024-02-07] MEDS: carvediloL 6.25 MG TABLET PO (08:58)
[2024-02-07] MEDS: SACUBITRIL/VALSARTAN 24-26 MG TABLET 1 TAB PO (08:59)
[2024-02-07] MEDS: HEPARIN SODIUM 5,000 UNITS/ML VIAL 5000 UNITS SUB-Q (08:59)
--- NOTE | 2024-02-07 09:45 | PCNWS ---
Weekly nutritional screen. Patient is tolerating regular current diet with adequate intake 75-100% most meals. No weight loss reported. No nutritional recommendations at this time.
[2024-02-07] MEDS: VANCOMYCIN 2,000 MG/NS 500 ML 2,000 MG/500 ML BAG 250 MG IVPB (10:48)
[2024-02-07 11:46] LABS: Glucose Point of Care 242 mg/dl (65-105)
[2024-02-07] MEDS: FERROUS SULFATE 325 MG TABLET DR PO ×2 (12:48→17:49)
--- NOTE | 2024-02-07 14:30 | P.CONNEU_ITS ---
Assessment and Plan Assessment and plan (1) AMS (altered mental status): Code(s): R41.82 - Altered mental status, unspecified Status: Acute Plan 1. Dementia with no significant change in the neurological status 2. Multiple general medical problem as outlined above 3. No particular neurological intervention Consult date: 02/07/24 HPI: Iris Pascual is a 69 year old female Admitted to the hospital through the emergency room on transfer from the retirement with complaints of change in level of consciousness, but with ongoing history of dementia and also with history that generally patient is oriented x2 at the baseline. Additionally gordon christian does have history of heart failure, bilateral [id number] amputation, and at the time of visit to the ER patient was receiving multiple medications as outlined. she is also allergic to codeine. Patient does have ongoing history of as mentioned above 1. Dementia 2. Diabetes mellitus 3. GERD 4. Hypertension 5. History of thyroid cancer 5. Psychiatric disorder. Patient has undergone lumpectomy of the left breast, thyroid surgery, bilateral above the knee amputations, there is no history of being alcohol intake or substance user on initial exam in the emergency room she was obviously chronically ill appearing well nourished with all the physical and neurological deficit as outlined her vital signs were normal CBC was with hemoglobin of 9.7 BMP was sugar of 2 were 2 and BUN of 44 with creatinine 1.20 her BNP was more than 30,000 with troponin 0.043 and she had 3+ proteinuria glucosuria and hematuria chest x-ray with cardiomegaly and pulmonary edema in addition to left lower lobe atelectasis versus pneumonia abdominal and pelvic CT scan chronic small pericardial effusion chest CT scan with cardiomegaly EKG normal Review of Systems Review of Systems: All systems reviewed & are unremarkable except as noted in HPI and below [facility] Past Medical History Medical History Anemia Combined systolic and diastolic congestive heart failure echocardiogram 12/06/2021: Severely reduced right ventricular systolic function with EF of 20-25%, moderate left ventricular chamber enlargement, moderate left atrial enlargement, grade 2 diastolic dysfunction Dementia Dyslipidemia Encephalopathy acute GERD (gastroesophageal reflux disease) History of breast cancer HTN (hypertension) Hyperlipidemia Neuropathy Non-STEMI (non-ST elevated myocardial infarction) Peripheral vascular disease Psychiatric disorder Thyroid cancer Type 2 diabetes mellitus with hyperglycemia Surgical History Surgical History History of lumpectomy of left breast History of right breast implant Patient reports that it was radiation implant History of thyroid surgery S/P AKA (above knee amputation) bilateral Family History Family History Mother Family history of type 2 diabetes mellitus, Onset Age: 55 Father Acute myocardial infarction, Onset Age: 58 Social History Social History Social History: The patient has advanced directive paperwork from the retirement that states she is a DNR. However the patient's family members that were in the ER stated that they wanted the patient to be a full code. The patient herself wishes to be a DNR/DNI. Patient is mildly confused but is seemed to be having capacity and understands consequences. Smoking status: Unknown if ever smoked Second hand tobacco smoke exposure: No Alcohol intake: never Substance use: never Substance use type: does not use Do You Feel Safe in your Home?: Yes Lack of Transportation: No Lack of Food: Never True Current Housing: I Have Housing Concerned About Future Housing: No Difficulty Paying Gas/Electric Bills: No Difficulty Paying for Meds: No Currently Unemployed: No Education: Decline to Answer Difficulty w/ Childcare or Family Care: No Spiritual care concerns: No Meds Home Medications and Allergies Home Medications Medication Instructions Recorded Confirmed Type acetaminophen 325 mg capsule 650 mg PO Q6H PRN Pain (Scale 12/05/21 01/30/24 History (Tylenol) Score 1-3) atorvastatin 40 mg tablet 40 mg PO HS 12/05/21 01/30/24 History bisacodyl 10 mg rectal suppository 10 mg RECTAL PRN PRN Constipation 12/05/21 01/30/24 History insulin aspart U-100 100 unit/mL See Rx Instructions .Route .COMPLEX 12/05/21 01/30/24 History subcutaneous solution (Novolog U-100 Insulin aspart) levothyroxine 100 mcg tablet 100 mcg PO DAILY 12/05/21 01/30/24 History ondansetron HCl 4 mg tablet 4 mg PO Q8H PRN Nausea 12/05/21 01/30/24 History empagliflozin 10 mg tablet 10 mg PO DAILY 1 month #30 tabs 12/08/21 01/30/24 Rx (Jardiance) gabapentin 300 mg capsule 300 mg PO TID 05/16/22 01/30/24 History omeprazole 20 mg capsule,delayed 20 mg PO DAILY 05/16/22 01/30/24 History release potassium chloride 10 mEq 10 meq PO DAILY 05/16/22 01/30/24 History capsule,extended release Lantus U-100 Insulin 8 unit subcut QHS 01/10/24 01/30/24 History furosemide 40 mg tablet (Lasix) 40 mg PO DAILY 01/10/24 01/30/24 History carvedilol 6.25 mg tablet (Coreg) 6.25 mg PO BID 01/30/24 01/30/24 History ferrous sulfate 325 mg (65 mg 325 mg PO DAILY PRN anemia 01/30/24 01/30/24 History iron) tablet magnesium citrate (Citroma oral 296 ml PO DAILY PRN Constipation 01/30/24 01/30/24 History solution) magnesium hydroxide 400 mg/5 mL 30 ml PO HS PRN CONSTIPATION 01/30/24 01/30/24 History oral suspension (Milk of Magnesia) naloxone 4 mg/actuation nasal spray 1 spray intranasal Q2M PRN OPIOD 01/30/24 01/30/24 History OVERDOSE sacubitril 24 mg-valsartan 26 mg 1 tablet PO Q12H 01/30/24 01/30/24 History tablet (Entresto) sodium phosphates 19 gram-7 118 ml RECTAL PRN PRN constipation 01/30/24 01/30/24 History gram/118 mL enema (Fleet Enema) tramadol 50 mg tablet 50 mg PO Q8H PRN pain 01/30/24 01/30/24 History Allergies Allergy/AdvReac Type Severity Reaction Status Date / Time codeine Allergy Unknown Verified 01/30/24 15:44 Vital Signs Vital Signs - 24 hr 02/06/24 16:00 02/06/24 16:00 02/06/24 20:36 Temperature 36.1 C L Pulse Rate 62 81 73 Respiratory Rate 18 Blood Pressure 124/66 Pulse Oximetry 100 02/06/24 20:00 02/07/24 00:00 02/06/24 20:00 Temperature 36.5 C 36.3 C L Pulse Rate 73 74 71 Respiratory Rate 14 20 Blood Pressure 142/71 H 134/68 Pulse Oximetry 100 100 02/07/24 00:00 02/07/24 04:00 02/07/24 04:00 Temperature 36.1 C L Pulse Rate 68 68 68 Respiratory Rate 22 H Blood Pressure 123/60 Pulse Oximetry 100 02/07/24 07:54 02/07/24 08:58 02/07/24 12:00 Temperature 36.0 C L 35.8 C L Pulse Rate 64 85 69 Respiratory Rate 14 14 Blood Pressure 92/48 L 105/50 L Pulse Oximetry 100 100 02/07/24 12:00 Temperature Pulse Rate 74 Respiratory Rate Blood Pressure Pulse Oximetry Exam Narrative: chronically ill-appearing in no obvious acute distress laying in bed with eyes closed, normocephalic head with no signs of trauma, and no cranial bruits, his spontaneous movements of the eyes in horizontal gaze with no nystagmus facial grimace symmetrical tongue in the oral cavity heart regular lungs clear motor examination reveals her to have generally decreased strength with sluggish reflexes in the upper extremities and there is no evidence of spontaneous movements at this particular state Results Labs 02/07/24 05:23 02/07/24 05:23 Labs: Short CBC 02/07/24 Range/Units 05:23 WBC 5.3 (4.5-10.0) K/mm3 Hgb 10.0 L (12.0-15.0) g/dL Hct 31.6 L (37.0-47.0) % Plt Count 236 (150-375) k/mm3 BMP 02/07/24 05:23 Sodium 135 L Potassium 3.4 Chloride 99 Carbon Dioxide 32 H BUN 29 H Creatinine 1.10 H Glucose 183 H Calcium 7.6 L Liver Function 02/07/24 Range/Units 05:23 Total Bilirubin 0.6 (0.2-1.3) mg/dL AST 21 (14-36) U/L ALT 10 (6-35) U/L Alkaline Phosphatase 50 (38-126) U/L Albumin 2.9 L (3.5-5.1) g/dL
[2024-02-07] MEDS: GABAPENTIN 100 MG CAPSULE PO (14:51)
--- NOTE | 2024-02-07 16:19 | P.DS_ITS ---
DS: Admitting Diagnosis Discharge Date 02/06 Admitting Diagnosis AMS DS: Summary Hospital Course Reason for hospitalization: AMS, UTI, pyelonephritis, chronic osteomyelitis of pubis symphysis, ureteral fistula, CHF exacerbation, Hospital Course: This is a 69-year-old female patient from a local snf sent to the emergency department for altered level of consciousness. Patient has a history of dementia appears to be oriented to baseline person and place. Patient with no current complaints. Workup in the emergency department concerning for colitis with diffuse diarrhea requiring fecal management system, UTI and CHF exacerbation. Reyes catheter was placed in the emergency department and diuresis initiated with IV Lasix. The patient was admitted to the IMU with a diagnosis of AMS. She was treated for a CHF exacerbation with IV Lasix and continued her Entresto, coreg, and jardiance. ECHO showed severe global LV systolic dysfunction with EF 25-30% with grade 3-4 diastolic dysfunction. EF was mildly improved from EF of 20-25% from an ECHO in 2021. She was also found to have a UTI and was stared on Rocephin. Culture grew ESBL and she was transitioned to meropenem. CT of abdomen and pelvis showed concerns for ascending UTI as well as possible ureteral fistula. Urology was consulted and recommended chronic reyes placement with no surgical intervention. CT scan showing a widened pubic symphysis with irregular cortical contours with gas tracking from the pubic symphysis to the urethra which is suspicious for fistulous communication and secondary chronic osteomyelitis. Pelvic MR showing chronic osteomyelitis at the pubic symphysis. IR did not feel that a biopsy would be helpful as there is a low percentage to obtain a clean biopsy. Case was discussed with ID pharmacist and was decided the patient would be treated with 6 weeks of IV antibiotics with Ertapenem and Vancomycin. PICC line was placed. The patient had also been experiencing large volumes of diarrhea on admission. C-diff was initially negative as well as stool cultures. CT of abdomen showed mild rectal wall thickening with perirectal inflammation. Initially she had a fecal management tube but her stool volumes decreased. A couple of days prior to discharge she again developed loose stools with foul smell. C-diff was re- checked and was found to be positive. She was started on oral vancomycin for 10 days of treatment. Her stool volumes never increased significantly where she was unable to maintain her fluid balances or require replacement of the rectal tube. During her stay she was having episodes of low blood glucose with results in the 40's (02/02/24). Her Lantus was decreased and her Jardiance was placed on hold. Over the last 24 hours prior to her discharge, her blood glucose had been ranging anywhere from 177 (fasting) to 294. Because of this, her Jardiance and lantus 8 units were resumed at discharge. Her mental status continued to wax and wane during her stay prompting a brain MRI to be obtained. Neurology was consulted for MRI findings of hyperintense signal area in the cerebellar peduncle with few scattered lesion in the cerebral white matter. Neurology said since the patient had no other neurological findings no further intervention will be necessary and also no specific diagnostic test would need to be preformed to further evaluate. Neurology felt the waxing and waning of orientation was likely underlying dementia and myriad of comorbidities. General surgery was also consulted during this stay for a breast mass and abdominal fluid collection. There rec's are as follows. Right breast ultrasound shows a chronic calcified avascular collection within the soft tissues of the right breast decreased in size compared to a chest radiograph in 2021. Radiologist is recommending no further follow-up. The patient remains asymptomatic and there are no signs of infection of this chronic-appearing fluid collection of the right breast, therefore we would not recommend any surgical intervention at this time. She does have a history of bilateral breast cancer and it is not clear if she has had any recent follow-up or mammograms at the snf in the past few years. She should at least have a mammogram for routine screening as an outpatient. The patient has a large fluid collection in the abdominal wall anterior to a previous ventral hernia repair with mesh. There does not appear to be any evidence of a recurrent hernia. She remains asymptomatic and has no tenderness on exam. The overlying skin appears healthy with no signs of infection. No indication for any surgical intervention at this time, and we would recommend just to monitor this for now. Further evaluation of this fluid collection could be considered if she developed signs of infection or became symptomatic. Overall the patient did fairly well during her stay and was able to discharge in stable condition to her SNF with IV antibiotic therapy to continue for a total of 6 weeks with continued chronic reyes catheter and PICC line for antibiotics. Time Spent with Patient Time attestation: Total time spent providing and/or coordinating discharge services: 105 Exam Narrative: * GENERAL: responds to tactile stimulation, in no acute distress, resting in bed, well nourished. * LUNGS: Clear to auscultation bilaterally. Unlabored and even respirations. * CARDIOVASCULAR: Regular rate and rhythm. No murmur. No JVD. S1-S2 * ABDOMEN: Soft, non tenderness and non-distended. No palpable masses. * EXTREMITIES: No edema. Non-tender. bilateral AKA * SKIN: No rashes or lesions. Skin warm, dry. PICC line in place * NEUROLOGIC: No focal neurological deficits. Alert to person, place. DS: Data Data Completed and Pending Labs on day of discharge: Labs from last 24 hours 02/07/24 02/07/24 02/07/24 11:39 07:29 05:29 WBC RBC Hgb Hct MCV MCH MCHC RDW Plt Count MPV Sodium Potassium Chloride Carbon Dioxide Anion Gap BUN Creatinine Estim Creat Clear Calc Estimated GFR Glucose POC Capillary Glucose 242 H 172 H 177 H Calcium Total Bilirubin AST ALT Alkaline Phosphatase Total Protein Albumin 02/07/24 02/07/24 02/06/24 05:23 00:17 20:08 WBC 5.3 RBC 3.26 L Hgb 10.0 L Hct 31.6 L MCV 96.9 MCH 30.7 MCHC 31.6 L RDW 17.3 H Plt Count 236 MPV 9.3 Sodium 135 L Potassium 3.4 Chloride 99 Carbon Dioxide 32 H Anion Gap 4 BUN 29 H Creatinine 1.10 H Estim Creat Clear Calc 42 Estimated GFR 60 Glucose 183 H POC Capillary Glucose 206 H 282 H Calcium 7.6 L Total Bilirubin 0.6 AST 21 ALT 10 Alkaline Phosphatase 50 Total Protein 7.0 Albumin 2.9 L 02/06/24 17:38 WBC RBC Hgb Hct MCV MCH MCHC RDW Plt Count MPV Sodium Potassium Chloride Carbon Dioxide Anion Gap BUN Creatinine Estim Creat Clear Calc Estimated GFR Glucose POC Capillary Glucose 186 H Calcium Total Bilirubin AST ALT Alkaline Phosphatase Total Protein Albumin Discharge Plan Discharge Attending physician on discharge: Sreekanth Gloria Consulting providers: Aditya Agustin; Kenny Dick; Raffi Fung Discharging Clinician: June Saba Anticipated Discharge Date/Time: 02/07/24 14:47 Patient Disposition: SNF Activity: may shower Diet: regular Discharge Instructions: * If you have not had a mammogram in the past 1-2 years, then we would recommend a screening mammogram given your history of breast cancer. This can be done through your primary care provider. * Urology consulted for possible ureteral fistula. They did not recommend an exhaustive evaluation or repair of the urethral fistula and felt the best options may be chronic urinary drainage. Patient will continue with Reyes catheter in place with monthly exchanges. She will need to follow-up with urology as an outpatient. * Osteomyelitis of pubic symphysis and no bone biopsy completed. Patient will need to discharge with ertapenem and vancomycin for 6 weeks with weekly CBC, CMP, and vancomycin trough. PICC line dressing changes weekly or as needed for soiled dressing. * C-diff colitis diagnosed this admission. Patient will need to complete 10 days of oral vancomycin therapy. Contact isolation advised. * You need to follow up with your PCP and Urology. Please contact their office to schedule appointment * Please monitor for signs and symptoms of worsening infection including fever, chills, body aches, discolored urine, flank pain, nausea or vomiting. Should you experience these symptoms please come for evaluation. Patient Instructions: Urinary Tract Infection in Women (DC), C. Diff (Clostridioides Difficile) Infection (DC) Stand Alone Forms: General Discharge Information Follow-up/Referrals: Kenny Dick MD [Physician] - UNKNOWN,DOCTOR [Primary Care Provider] - Discharge Medications: New vancomycin 125 mg Capsule 125 mg PO Q6HR Qty: 40 0RF Continued atorvastatin 40 mg tablet 40 mg PO HS ondansetron HCl 4 mg tablet 4 mg PO Q8H PRN (Reason: Nausea) levothyroxine 100 mcg tablet 100 mcg PO DAILY acetaminophen [Tylenol] 325 mg Capsule 650 mg PO Q6H PRN (Reason: Pain (Scale Score 1-3)) Jardiance 10 mg Tablet 10 mg PO DAILY 30 Days Qty: 30 0RF gabapentin 300 mg capsule 300 mg PO TID potassium chloride 10 mEq capsule, extended release 10 meq PO DAILY furosemide [Lasix] 40 mg tablet 40 mg PO DAILY Lantus U-100 Insulin 8 unit subcut QHS ferrous sulfate 325 mg (65 mg iron) Tablet 325 mg PO DAILY PRN (Reason: anemia) Entresto 24-26 mg Tablet 1 tablet PO Q12H naloxone 4 mg/actuation [place],Non-Aerosol 1 spray INTRANASAL Q2M PRN (Reason: OPIOD OVERDOSE) Rx Instructions: spray 1 dose into RIGHT nostril; alternate nostrils w each dose until RESPONSIVE carvedilol [Coreg] 6.25 mg tablet 6.25 mg PO BID Rx Instructions: must administer with a meal/food tramadol 50 mg Tablet 50 mg PO Q8H PRN (Reason: pain) Changed insulin aspart U-100 [Novolog U-100 Insulin aspart] 100 unit/mL solution See Rx Instructions .ROUTE .COMPLEX Qty: 10 0RF Rx Instructions: 150-200 3units, 201-250 6units, 251-300 9units, 301-350 12 units, 351-400 15 units, greater than 401-800 20 units and notify md Discontinued bisacodyl 10 mg Suppository 10 mg RECTAL PRN PRN (Reason: Constipation) omeprazole 20 mg capsule,delayed release(DR/EC) 20 mg PO DAILY magnesium hydroxide [Milk of Magnesia] 400 mg/5 mL Suspension 30 ml PO HS PRN (Reason: CONSTIPATION) Rx Instructions: IF NO BM IN 3 DAYS Fleet Enema 19-7 gram/118 mL Enema 118 ml RECTAL PRN PRN (Reason: constipation) Rx Instructions: give if no results 1 day after suppository magnesium citrate [Citroma] Solution 296 ml PO DAILY PRN (Reason: Constipation) Rx Instructions: give if no results from enema (citroma solution1.725 GM / 30ML) Date of admission: 01/31/24 08:49 Primary Care Provider: UNKNOWN,DOCTOR Admitting Provider: Ismael Taylor Attending physician on admission: June Saba Condition: Improved
[2024-02-07 16:21] LABS: Glucose Point of Care 294 mg/dl (65-105)
== END 2024-02-07 18:00 | DRG 291 ==
LOC: ANHED 12:07 → ANHIMU 16:53 → ANH3MEDSUR 02-03 18:57
PROVIDERS: Internal Medicine; Nurse Practitioner; Nurse Practitioner Family; Admitting Provider Family Medicine; Emergency Provider Emergency Medicine; Visit Provider Nurse Practitioner Acute Care
DX: I11.0 Hypertensive heart disease with heart failure (principal); I50.43 Acute on chronic combined systolic (congestive) and diastolic (congestive) heart failure; N39.0 Urinary tract infection, site not specified; N17.9 Acute kidney failure, unspecified; N36.0 Urethral fistula; A04.72 Enterocolitis due to Clostridium difficile, not specified as recurrent; M86.68 Other chronic osteomyelitis, other site; E11.51 Type 2 diabetes mellitus with diabetic peripheral angiopathy without gangrene; E11.649 Type 2 diabetes mellitus with hypoglycemia without coma; E78.5 Hyperlipidemia, unspecified; K52.9 Noninfective gastroenteritis and colitis, unspecified; N64.59 Other signs and symptoms in breast; F03.90 Unspecified dementia, unspecified severity, without behavioral disturbance, psychotic disturbance, mood disturbance, and anxiety; Z79.4 Long term (current) use of insulin; Z89.612 Acquired absence of left leg above knee; Z89.611 Acquired absence of right leg above knee; Z85.850 Personal history of malignant neoplasm of thyroid; Z85.3 Personal history of malignant neoplasm of breast
CPT/HCPCS: 36415; 36569; 70450; 70553; 71045; 71250; 72197; 74177; 76642; 80048; 80053; 80069; 81001; 82550; 82607; 82728; 82746; 82803; 82948; 83540; 83550; 83605; 83735; 83880; 84100; 84484; 85025; 85027; 85610; 85730; 86140; 87040; 87045; 87077; 87086; 87088; 87186; 87427; 87449; 87493; 93005; 96365; 96366; 96367; 96375; 96376; 99285; A9270; A9577; C8929; G0378; J0696; J1644; J1815; J1836; J1940; J2003; J2185; J3370; Q9957; Q9967

== ENCOUNTER 2024-02-15 10:57 | Observation (INO) | payer MEDICARE, MEDICAID, SELFPAY ==
[2024-02-15] VITALS (23 sets, daily range): BP systolic 85–121; BP diastolic 31–78; PULSE 58–75; RESP 12–20; TEMP 34.9–36.5; O2SAT 96–100
--- NOTE | ~2024-02-15 | XR_ITS ---
EXAMINATION: XR chest 1V DATE: 02/15/2024 12:25 INDICATION: Central line placement. TECHNIQUE: A single frontal view of the chest was obtained. COMPARISON: Chest single view 02/05/2024, chest CT 01/30/2024 FINDINGS: Again seen is mild elevation of right hemidiaphragm. No pneumonia, pleural effusion, or pne umothorax. Cardiomegaly is noted. Calcified mediastinal lymph nodes are consistent with old granuloma tous disease. A right upper extremity peripherally inserted central venous catheter (PICC) is seen wi th tip in the superior vena cava. There is a peripherally calcified mass in right breast, likely a se raimundo. IMPRESSION: 1. PICC tip in the superior vena cava. 2. Cardiomegaly. Reviewed, dictated and finalized at location A. RETE MASON
--- NOTE | ~2024-02-15 | CT_ITS ---
EXAMINATION: CT brain wo con DATE: 02/15/2024 12:20 INDICATION: Altered mental status. TECHNIQUE: Computed tomography (CT) of the head was performed without intravenous contrast. The mA wa s adjusted according to patient size. Iterative reconstruction technique was employed. The dose-lengt h product was 529.67 mGy-cm. COMPARISON: Head CT 02/05/2024, brain MRI 02/06/2024 FINDINGS: There are scattered areas of low attenuation in the cerebral white matter, which is within normal limits for the patient's age. There is no intracranial hemorrhage, acute infarction, or abnor mal intracranial mass lesion. The ventricles are normal in size. The orbits are normal. The paranasal sinuses are clear. The mastoid air cells are normal. IMPRESSION: 1. Normal aging brain. Reviewed, dictated and finalized at location A. OLOGY TECH IMPRESSION: 1. Normal aging brain.
[2024-02-15 11:15] LABS: Glucose Point of Care 97 mg/dl (65-105)
[2024-02-15 11:16] LABS: Alveolar/Arterial O2 Gradient 23.6 mmHg; Base Excess ABG 6.8 mEq/l (+/-2.0); Carboxyhemoglobin 1.2 % THb (0-2.0); Fractional Inspired Oxygen 21 %; HCO3 ABG 31.7 mEq/l (22.0-26.0); Methemoglobin ABG 0.1 %THb (0-1.5); Oxygen Content ABG 15.9 %vol (16.0-22.0); Oxygen Saturation ABG 94.7 % (95.0-100.0); Oxyhemoglobin 92.2 % THb (90.0-100.0); PCO2 ABG 46.6 mmHg (35.0-45.0); PO2 ABG 70.3 mmHg (80.0-100.0); PO2 FiO2 Ratio Arterial Blood 3.35 %; Reduced Hemoglobin 6.5 %THb (0-5.0); Total Hemoglobin 12.2 g/dL (12.0-18.0); pH ABG 7.451 (7.350-7.450)
[2024-02-15 11:18] LABS: Device ROOM AIR; Site Drawn RIGHT RADIAL
--- NOTE | 2024-02-15 11:40 | ED.GENADULT ---
HPI - General Adult General Chief complaint: Altered Mental Status Stated complaint: ams Time Seen by Provider: 02/15/24 10:57 History of Present Illness HPI narrative: 69-year-old female presenting to the emergency department for evaluation for altered mental status. prison noticed the patient had decreased mental status and so she was referred transferred to the emergency department by EMS. Upon arrival emergency department patient remained unresponsive but did have a gag reflex and was maintaining her oxygenation. Patient was discharged on 02/06 during which she had been admitted for osteomyelitis and altered mental status. Patient was treated for concern for osteomyelitis of the pubic symphysis. IR did not feel that of biopsy would be helpful. While patient was here she also had multiple issues with waxing and waning mental status and MRI was ordered. Neurology was consulted and felt that the neurologic status was due to dementia and her other underlying comorbidities. Related Data Home Medications Medication Instructions Recorded Confirmed atorvastatin 40 mg tablet 40 mg PO HS 12/05/21 02/15/24 levothyroxine 100 mcg tablet 100 mcg PO DAILY 12/05/21 02/15/24 ondansetron HCl 4 mg tablet 4 mg PO Q8H PRN Nausea 12/05/21 02/15/24 gabapentin 300 mg capsule 300 mg PO TID 05/16/22 02/15/24 potassium chloride 10 mEq 10 meq PO DAILY 05/16/22 02/15/24 capsule,extended release Lantus U-100 Insulin 8 unit subcut QHS 01/10/24 02/15/24 furosemide 40 mg tablet (Lasix) 40 mg PO DAILY 01/10/24 02/15/24 carvedilol 6.25 mg tablet (Coreg) 6.25 mg PO BID 01/30/24 02/15/24 ferrous sulfate 325 mg (65 mg 325 mg PO DAILY PRN anemia 01/30/24 02/15/24 iron) tablet naloxone 4 mg/actuation nasal spray 1 spray intranasal Q2M PRN OPIOD 01/30/24 02/15/24 OVERDOSE sacubitril 24 mg-valsartan 26 mg 1 tablet PO Q12H 01/30/24 02/15/24 tablet (Entresto) tramadol 50 mg tablet 50 mg PO Q8H PRN pain 01/30/24 02/15/24 bisacodyl 10 mg rectal suppository 10 mg RECTAL DAILY PRN Constipation 02/15/24 02/15/24 empagliflozin 10 mg tablet 10 mg PO DAILY 02/15/24 02/15/24 ertapenem 1 gram solution for 1 g IM DAILY 02/15/24 02/15/24 injection magnesium citrate (Citroma oral 150 ml PO DAILY PRN Constipation 02/15/24 02/15/24 solution) magnesium hydroxide 400 mg/5 mL 400 mg PO HS PRN Constipation 02/15/24 02/15/24 oral suspension (Milk of Magnesia) omeprazole 20 mg capsule,delayed 20 mg PO DAILY 02/15/24 02/15/24 release sodium phosphates 19 gram-7 118 ml RECTAL DAILY PRN 02/15/24 02/15/24 gram/118 mL enema (Fleet Enema) Constipation vancomycin 1.5 gram intravenous 1.5 g IV DAILY 02/15/24 02/15/24 solution Allergies Allergy/AdvReac Type Severity Reaction Status Date / Time codeine Allergy Unknown Verified 01/30/24 15:44 Review of Systems Review of Systems: All systems reviewed & are unremarkable except as noted in HPI and below [facility] Past Medical History Medical History (Updated 02/15/24 @ 19:36 by Yosi Irizarry MD) Anemia C. difficile diarrhea (01/2024) Combined systolic and diastolic congestive heart failure echocardiogram 12/06/2021: Severely reduced right ventricular systolic function with EF of 20-25%, moderate left ventricular chamber enlargement, moderate left atrial enlargement, grade 2 diastolic dysfunction Dementia Dyslipidemia Gastroesophageal reflux disease History of breast cancer Hyperlipidemia Hypertension Neuropathy Non-STEMI (non-ST elevated myocardial infarction) Peripheral vascular disease Psychiatric disorder Thyroid cancer Type 2 diabetes mellitus Urinary tract infection due to extended-spectrum beta lactamase (ESBL) producing Escherichia coli Surgical History Surgical History (Updated 02/15/24 @ 13:48 by Paula Moore PA-C) History of above-knee amputation of both lower extremities History of lumpectomy of left breast History of right breast implant Patient reports that it was radiation implant History of thyroid surgery Family History Family History Mother Family history of type 2 diabetes mellitus, Onset Age: 55 Father Acute myocardial infarction, Onset Age: 58 Social History Social History (Updated 02/15/24 @ 18:53 by Paula G Gerling, PA-C) Social History: Surrogate medical decision maker: Ailyn Turner, daughter. Code status: Do not resuscitate with selective treatment (paperwork accompanies the patient). Smoking status: Unknown if ever smoked Second hand tobacco smoke exposure: No Alcohol intake: never Substance use: never Substance use type: does not use Do You Feel Safe in your Home?: Yes Lack of Transportation: No Lack of Food: Never True Current Housing: I Have Housing Concerned About Future Housing: No Difficulty Paying Gas/Electric Bills: No Difficulty Paying for Meds: No Currently Unemployed: No Education: Decline to Answer Difficulty w/ Childcare or Family Care: No Spiritual care concerns: No Exam Narrative: APPEARANCE: Somnolent appearing HEAD: normocephalic, atraumatic. EYES: PERRLA/EOMI, conjunctivae clear. NOSE: Normal no drainage EARS:TMS clear with good light reflex. THROAT: Pharynx clear, no exudate. NECK: Supple. No adenopathy, no masses. RESPIRATORY: Airway patent, respirations nonlabored. Clear to auscultation bilaterally, no rales, rhonchi, wheezing. CARDIOVASCULAR: Regular rate and rhythm without murmurs rubs or gallops. ABDOMINAL: Soft, nontender, nondistended, normal bowel sounds MUSCULOSKELETAL: Moves all extremities. Strength/ROM intact, No edema, No calf tenderness. NEURO: Somnolent but does respond to adverse stimuli, strong gag SKIN: Warm, dry. Normal Color PSYCHIATRIC: Normal affect/mood. Course Vital Signs Vital signs: Vital Signs Temperature 95.5 F L 02/15/24 10:58 Pulse Rate 60 02/15/24 10:58 Respiratory Rate 15 02/15/24 10:58 Blood Pressure 98/55 L 02/15/24 10:58 Pulse Oximetry 96 02/15/24 10:58 Oxygen Delivery Room Air 02/15/24 10:58 Temperature 97.3 F L 02/15/24 15:53 Pulse Rate 66 02/15/24 15:53 Respiratory Rate 18 02/15/24 15:53 Blood Pressure 98/37 L 02/15/24 15:53 Pulse Oximetry 100 02/15/24 15:53 Oxygen Delivery Nasal Cannula 02/15/24 11:47 Oxygen Flow Rate 3 02/15/24 11:47 Medical Decision Making MDM Narrative Medical decision making narrative: 69-year-old female presents emergency department for evaluation for being unresponsive. Patient was unresponsive upon arrival to the emergency department but patient ultimately did regain consciousness and was alert and orientated x4 upon awakening. Patient denies any pain or complaints and was well-appearing. Patient is afebrile with no leukocytosis and hemoglobin 11.1. Patient has INR 1.3 ABG with no significant abnormalities. CMP has no acute abnormalities. UA head was concerning for underlying infection and patient was started on antibiotics for both the UTI and the persistent osteomyelitis of the pubic symphysis, patient was continued on her order pending. Case was discussed with hospitalist patient was accepted for admission. Differential Diagnosis Differential Diagnosis: CVA, hypercapnia, pneumonia, UTI Vital Signs Vital Signs: Vital Signs Temperature 95.5 F L 02/15/24 10:58 Pulse Rate 60 02/15/24 10:58 Respiratory Rate 15 02/15/24 10:58 Blood Pressure 98/55 L 02/15/24 10:58 Pulse Oximetry 96 02/15/24 10:58 Oxygen Delivery Room Air 02/15/24 10:58 Temperature 97.3 F L 02/15/24 15:53 Pulse Rate 66 02/15/24 15:53 Respiratory Rate 18 02/15/24 15:53 Blood Pressure 98/37 L 02/15/24 15:53 Pulse Oximetry 100 02/15/24 15:53 Oxygen Delivery Nasal Cannula 02/15/24 11:47 Oxygen Flow Rate 3 02/15/24 11:47 Lab Data Lab results reviewed: Yes I reviewed the patient's lab results. 02/15/24 12:50 02/15/24 12:50 Labs: Lab Results 02/15/24 02/15/24 02/15/24 Range/Units 11:06 11:13 11:58 WBC (4.5-10.0) K/mm3 RBC (4.2-5.4) M/mm3 Hgb (12.0-15.0) g/dL Hct (37.0-47.0) % MCV (80-100) fl MCH (26-34) pg MCHC (32-36) g/dl RDW (11.5-14.5) % Plt Count (150-375) k/mm3 MPV (7.4-10.4) fl Immature Gran % (Auto) (0-0.5) % Neut % (Auto) (45.5-73.1) % Lymph % (Auto) (18.3-44.2) % [place] % (Auto) (2.6-8.5) % Eos % (Auto) (0-4.4) % Baso % (Auto) (0.2-1.2) % Lymph # (Auto) (0.9-3.2) K/mm3 [place] # (Auto) (0.1-0.6) K/mm3 Eos # (Auto) (0-0.3) K/mm3 Baso # (Auto) (0.0-0.1) K/mm3 Abs Immat Gran (auto) (0.00-0.031) K/mm3 Absolute Neuts (auto) (1.3-6.7) K/mm3 Absolute Nucleated RBC (0.0-0.012) K/mm3 Nucleated RBC % (0.0-0.2) % PT (11.1-14.7) Seconds INR APTT (22.3-36.8) Seconds Methemoglobin 0.1 (0-1.5) %THb Sodium (137-145) mmol/L Potassium (3.4-5.0) mmol/L Chloride (98-107) mmol/L Carbon Dioxide (22-30) mmol/L Anion Gap (4-12) mmol/L BUN (7-17) mg/dL Creatinine (0.7-1.0) mg/dL Estim Creat Clear Calc Estimated GFR (59 - ) Glucose (65-110) mg/dL POC Capillary Glucose 97 (65-105) mg/dl Calcium (8.4-10.2) mg/dL Total Bilirubin (0.2-1.3) mg/dL AST (14-36) U/L ALT (6-35) U/L Alkaline Phosphatase (38-126) U/L Total Protein (6.3-8.2) g/dL Albumin (3.5-5.1) g/dL Urine Color Light red H (Yellow) Urine Appearance Turbid H (Clear) Urine pH 7.0 (5.0-9.0) Ur Specific [place] 1.018 (1.001-1.035) Urine Protein 3+ H (Negative) mg/dL Urine Glucose (UA) 2+ H (Negative) mg/dL Urine Ketones Negative (Negative) mg/dL Ur Blood (Man) 3+ H (Negative) Urine Nitrate Negative (Negative) Urine Bilirubin Negative (Negative) Urine Urobilinogen 0.2 (<2.0) mg/dL Leukocyte Esterase Rfl 3+ H (Negative) PABLO/UL Urine RBC >100 H (0-2) /hpf Urine WBC >100 H (0-3) /hpf Urine WBC Clumps Present H (None) /HPF Ur Squamous Epith Cells Many H (Few) /hpf Urine Bacteria 2+ H /hpf Urine Casts 3-5 02/15/24 Range/Units 12:50 WBC 5.3 (4.5-10.0) K/mm3 RBC 3.65 L (4.2-5.4) M/mm3 Hgb 11.1 L (12.0-15.0) g/dL Hct 35.8 L (37.0-47.0) % MCV 98.1 (80-100) fl MCH 30.4 (26-34) pg MCHC 31.0 L (32-36) g/dl RDW 15.9 H (11.5-14.5) % Plt Count 310 (150-375) k/mm3 MPV 9.1 (7.4-10.4) fl Immature Gran % (Auto) 0.2 (0-0.5) % Neut % (Auto) 67.4 (45.5-73.1) % Lymph % (Auto) 20.8 (18.3-44.2) % [place] % (Auto) 8.0 (2.6-8.5) % Eos % (Auto) 2.3 (0-4.4) % Baso % (Auto) 1.3 H (0.2-1.2) % Lymph # (Auto) 1.10 (0.9-3.2) K/mm3 [place] # (Auto) 0.4 (0.1-0.6) K/mm3 Eos # (Auto) 0.1 (0-0.3) K/mm3 Baso # (Auto) 0.1 (0.0-0.1) K/mm3 Abs Immat Gran (auto) 0.01 (0.00-0.031) K/mm3 Absolute Neuts (auto) 3.6 (1.3-6.7) K/mm3 Absolute Nucleated RBC 0.000 (0.0-0.012) K/mm3 Nucleated RBC % 0.0 (0.0-0.2) % PT 16.9 H (11.1-14.7) Seconds INR 1.3 APTT 30.4 (22.3-36.8) Seconds Methemoglobin (0-1.5) %THb Sodium 138 (137-145) mmol/L Potassium 4.0 (3.4-5.0) mmol/L Chloride 98 (98-107) mmol/L Carbon Dioxide 38 H (22-30) mmol/L Anion Gap 2 L (4-12) mmol/L BUN 24 H (7-17) mg/dL Creatinine 1.00 (0.7-1.0) mg/dL Estim Creat Clear Calc Not Reportable Estimated GFR > 60 (59 - ) Glucose 105 (65-110) mg/dL POC Capillary Glucose (65-105) mg/dl Calcium 8.1 L (8.4-10.2) mg/dL Total Bilirubin 0.7 (0.2-1.3) mg/dL AST 35 (14-36) U/L ALT 13 (6-35) U/L Alkaline Phosphatase 46 (38-126) U/L Total Protein 7.0 (6.3-8.2) g/dL Albumin 3.0 L (3.5-5.1) g/dL Urine Color (Yellow) Urine Appearance (Clear) Urine pH (5.0-9.0) Ur Specific [place] (1.001-1.035) Urine Protein (Negative) mg/dL Urine Glucose (UA) (Negative) mg/dL Urine Ketones (Negative) mg/dL Ur Blood (Man) (Negative) Urine Nitrate (Negative) Urine Bilirubin (Negative) Urine Urobilinogen (<2.0) mg/dL Leukocyte Esterase Rfl (Negative) PABLO/UL Urine RBC (0-2) /hpf Urine WBC (0-3) /hpf Urine WBC Clumps (None) /HPF Ur Squamous Epith Cells (Few) /hpf Urine Bacteria /hpf Urine Casts ABG Data ABG results: 02/15/24 11:06 Puncture Site Right radial ABG pH 7.451 H ABG pCO2 46.6 H ABG pO2 70.3 L ABG PO2/FiO2 Ratio 3.35 ABG HCO3 31.7 H ABG O2 Saturation 94.7 L ABG O2 Content 15.9 L ABG Base Excess 6.8 A-a Gradient 23.6 Oxyhemoglobin 92.2 Carboxyhemoglobin 1.2 Reduced Hemoglobin 6.5 H Total Hemoglobin 12.2 O2 Delivery Device Room air O2 Liters/Min Not Reportable FiO2 21 Imaging Data Radiologist's impression: Impressions Head CT 02/15/24 12:24 IMPRESSION: 1. Normal aging brain. Chest X-Ray 02/15/24 12:29 IMPRESSION: 1. PICC tip in the superior vena cava. 2. Cardiomegaly. ECG Data EKG #1: EKG Interpretation: bradycardia, sinus rhythm, no ectopy, non-specific ST changes, normal QT and NL axis Discharge Plan Discharge Clinical Impression: AMS (altered mental status), Acute UTI Patient Disposition: Still a Patient Condition: Serious
[2024-02-15 12:13] LABS: Add Urine Microscopic? YES; Appearance Urine Turbid (Clear); Bacteria Urine 2+ /hpf; Bilirubin Urine Negative (Negative); Blood Urine 3+ (Negative); Glucose Urine UA 2+ mg/dL (Negative); Ketones Urine Negative (Negative); Leukocyte Esterase Ur 3+ LEU/UL (Negative); Nitrate Urine Negative (Negative); Protein Urine 3+ mg/dL (Negative); RBC Urine >100 /hpf (0-2); Specific Grav Ur 1.018 (1.001-1.035); Squamous Epithelial Cell Urine Many /hpf (Few); Urobilinogen Urine 0.2 mg/dL (<2.0); WBC Urine >100 /hpf (0-3)
[2024-02-15 12:20] LABS: Color Urine Light Red (Yellow)
[2024-02-15 12:21] LABS: WBC Clumps Urine Present /HPF
[2024-02-15 12:57] LABS: Basophils Absolute Auto 0.1 K/mm3 (0.0-0.1); Basophils Percent Auto 1.3 % (0.2-1.2); Eosinophils Absolute Auto 0.1 K/mm3 (0-0.3); Eosinophils Percent Auto 2.3 % (0-4.4); Hematocrit 35.8 % (37.0-47.0); Hemoglobin 11.1 g/dL (12.0-15.0); Immature Granulocyte Absolute 0.01 K/mm3 (0.00-0.031); Immature Granulocyte Percent A 0.2 % (0-0.5); Lymphocytes Percent Auto 20.8 % (18.3-44.2); Mean Corpuscular Hemoglobin 30.4 pg (26-34); Mean Corpuscular Volume 98.1 fl (80-100); Mean Platelet Volume 9.1 fl (7.4-10.4); Monocytes Absolute Auto 0.4 K/mm3 (0.1-0.6); Neutrophils Absolute Auto 3.6 K/mm3 (1.3-6.7); Neutrophils Percent Auto 67.4 % (45.5-73.1); Platelet Count Result 310 k/mm3 (150-375); Red Blood Count 3.65 M/mm3 (4.2-5.4); Red Cell Distribution Width 15.9 % (11.5-14.5); White Blood Count 5.3 K/mm3 (4.5-10.0)
--- NOTE | 2024-02-15 13:04 | PC.NURSE ---
called pt facility at this time per MD request to see when the last time the pt received her dose of vancomycin 1500mg and ertapenem 1g. spoke to SPENCER Teran and he said her last dose of vanc was 02/14/24 around 1700 and her last dose ertapenem was 02/14/24 in the AM
[2024-02-15 13:07] LABS: INR 1.3; Prothrombin Time 16.9 Seconds (11.1-14.7)
[2024-02-15 13:08] LABS: Alanine Aminotransferase 13 U/L (6-35); Alkaline Phosphatase 46 U/L (38-126); Anion Gap 2 mmol/L (4-12); Aspartate Amino Transferase 35 U/L (14-36); Bilirubin,Total 0.7 mg/dL (0.2-1.3); Blood Urea Nitrogen 24 mg/dL (7-17); Calcium 8.1 mg/dL (8.4-10.2); Carbon Dioxide 38 mmol/L (22-30); Chloride 98 mmol/L (98-107); Estimated Glomerular Filt Rate > 60; Glucose 105 mg/dL (65-110); Partial Thromboplastin Time 30.4 Seconds (22.3-36.8); Sodium 138 mmol/L (137-145)
--- NOTE | 2024-02-15 13:45 | P.HP_ITS ---
H&P: HPI History of Present Illness Date/Time: 02/15/24 13:45 Chief Complaint: Unresponsive. Narrative: This is a 69-year-old female with dementia, hypertension, hyperlipidemia, peripheral vascular disease, combined systolic and diastolic congestive heart failure, chronic anemia, insulin-dependent type 2 diabetes mellitus, hypothyroidism, gastroesophageal reflux disease, anxiety, and history of breast cancer who presented to the emergency department via EMS from [facility] for evaluation after she was found unresponsive. She is alert and oriented x4 at the time of my evaluation provides the following history. This will be her 3rd admission to the hospital since 01/10/2024 after presenting with altered mental status. 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 In any event, she was sent in today after she was found unresponsive by staff at her nursing facility. No other information was provided by the transferring facility. EMS documents that she was found supine in her bed, was responsive to pain, and had stable vital signs. On triage she was moaning and open her eyes to painful stimuli. After a brief period of time in the ED she became alert and oriented x3 without any intervention. At the time of my evaluation she is sitting up eating a meal however about 45 minutes prior to that the nurse reports that she was asleep and difficult to arouse. She has no complaints at the time my evaluation and denies headache, vertigo, focal weakness, paresthesias, vision changes, sinus congestion, sore throat, cough, chest pain, shortness of breath, abdominal pain, back pain, nausea, vomiting, and diarrhea. In the ED: Temperature was as low as 94.8? with soft blood pressures in the 90s to low 100s systolic. Labs are significant for a WBC count of 5.3, hemoglobin 11.1, BUN 24, creatinine 1.00, glucose 105. Urinalysis was positive for 3+ protein, 2+ glucose, 3+ blood, 3+ leukocyte esterase, greater than 100 RBC and WBC, and 2+ bacteria. There were many squamous cells and WBC clumps noted on microscopy. Head CT showed normal aging brain. Chest x-ray showed PICC line tip in the superior vena cava and cardiomegaly. She has once again being admitted in this setting for evaluation of altered mental status. Review of Systems Review of Systems: 12 systems were reviewed and are negativ e except for as per HPI. [facility] Past Medical History Medical History (Updated 02/15/24 @ 16:14 by Paula Moore PA-C) Anemia C. difficile diarrhea (01/2024) Combined systolic and diastolic congestive heart failure echocardiogram 12/06/2021: Severely reduced right ventricular systolic function with EF of 20-25%, moderate left ventricular chamber enlargement, moderate left atrial enlargement, grade 2 diastolic dysfunction Dementia Dyslipidemia Gastroesophageal reflux disease History of breast cancer Hyperlipidemia Hypertension Neuropathy Non-STEMI (non-ST elevated myocardial infarction) Peripheral vascular disease Psychiatric disorder Thyroid cancer Type 2 diabetes mellitus Urinary tract infection due to extended-spectrum beta lactamase (ESBL) producing Escherichia coli Surgical History Surgical History (Updated 02/15/24 @ 13:48 by Paula Moore PA-C) History of above-knee amputation of both lower extremities History of lumpectomy of left breast History of right breast implant Patient reports that it was radiation implant History of thyroid surgery Family History Family History Mother Family history of type 2 diabetes mellitus, Onset Age: 55 Father Acute myocardial infarction, Onset Age: 58 Social History Social History (Updated 02/15/24 @ 18:53 by Paula Moore PA-C) Social History: Surrogate medical decision maker: Ailyn Turner, daughter. Code status: Do not resuscitate with selective treatment (paperwork accompanies the patient). Smoking status: Unknown if ever smoked Second hand tobacco smoke exposure: No Alcohol intake: never Substance use: never Substance use type: does not use Do You Feel Safe in your Home?: Yes Lack of Transportation: No Lack of Food: Never True Current Housing: I Have Housing Concerned About Future Housing: No Difficulty Paying Gas/Electric Bills: No Difficulty Paying for Meds: No Currently Unemployed: No Education: Decline to Answer Difficulty w/ Childcare or Family Care: No Spiritual care concerns: No Meds Home Medications and Allergies Home Medications Medication Instructions Recorded Confirmed Type atorvastatin 40 mg tablet 40 mg PO HS 12/05/21 02/15/24 History levothyroxine 100 mcg tablet 100 mcg PO DAILY 12/05/21 02/15/24 History ondansetron HCl 4 mg tablet 4 mg PO Q8H PRN Nausea 12/05/21 02/15/24 History gabapentin 300 mg capsule 300 mg PO TID 05/16/22 02/15/24 History potassium chloride 10 mEq 10 meq PO DAILY 05/16/22 02/15/24 History capsule,extended release Lantus U-100 Insulin 8 unit subcut QHS 01/10/24 02/15/24 History furosemide 40 mg tablet (Lasix) 40 mg PO DAILY 01/10/24 02/15/24 History carvedilol 6.25 mg tablet (Coreg) 6.25 mg PO BID 01/30/24 02/15/24 History ferrous sulfate 325 mg (65 mg 325 mg PO DAILY PRN anemia 01/30/24 02/15/24 History iron) tablet naloxone 4 mg/actuation nasal spray 1 spray intranasal Q2M PRN OPIOD 01/30/24 02/15/24 History OVERDOSE sacubitril 24 mg-valsartan 26 mg 1 tablet PO Q12H 01/30/24 02/15/24 History tablet (Entresto) tramadol 50 mg tablet 50 mg PO Q8H PRN pain 01/30/24 02/15/24 History insulin aspart U-100 100 unit/mL See Rx Instructions .Route 02/07/24 02/15/24 Rx subcutaneous solution (Novolog .COMPLEX #10 mL U-100 Insulin aspart) vancomycin 125 mg capsule 125 mg PO Q6HR #40 caps 02/07/24 02/15/24 Rx bisacodyl 10 mg rectal suppository 10 mg RECTAL DAILY PRN Constipation 02/15/24 02/15/24 History empagliflozin 10 mg tablet 10 mg PO DAILY 02/15/24 02/15/24 History ertapenem 1 gram solution for 1 g IM DAILY 02/15/24 02/15/24 History injection magnesium citrate (Citroma oral 150 ml PO DAILY PRN Constipation 02/15/24 02/15/24 History solution) magnesium hydroxide 400 mg/5 mL 400 mg PO HS PRN Constipation 02/15/24 02/15/24 History oral suspension (Milk of Magnesia) omeprazole 20 mg capsule,delayed 20 mg PO DAILY 02/15/24 02/15/24 History release sodium phosphates 19 gram-7 118 ml RECTAL DAILY PRN 02/15/24 02/15/24 History gram/118 mL enema (Fleet Enema) Constipation vancomycin 1.5 gram intravenous 1.5 g IV DAILY 02/15/24 02/15/24 History solution Allergies Allergy/AdvReac Type Severity Reaction Status Date / Time codeine Allergy Unknown Verified 01/30/24 15:44 Vital Signs Vital Signs - 24 hr 02/15/24 10:58 02/15/24 11:43 02/15/24 11:43 Temperature 95.5 F L Pulse Rate 60 59 L Respiratory Rate 15 Blood Pressure 98/55 L Pulse Oximetry 96 100 Oxygen Delivery Room Air Nasal Cannula Oxygen Flow Rate 3 02/15/24 11:47 02/15/24 11:27 02/15/24 11:30 Temperature 94.8 F L 94.8 F L Pulse Rate 59 L 58 L Respiratory Rate 20 18 Blood Pressure 100/38 L 102/49 L Pulse Oximetry 100 100 100 Oxygen Delivery Nasal Cannula Oxygen Flow Rate 3 02/15/24 11:50 02/15/24 11:52 02/15/24 12:51 Temperature 94.8 F L 94.8 F L 96.2 F L Pulse Rate 59 L Respiratory Rate 18 Blood Pressure 97/46 L Pulse Oximetry 100 Oxygen Delivery Oxygen Flow Rate 02/15/24 12:11 02/15/24 12:01 02/15/24 12:03 Temperature 95.7 F L 95.4 F L 95.5 F L Pulse Rate 63 58 L Respiratory Rate 19 17 Blood Pressure 89/67 L 85/31 L Pulse Oximetry 100 100 Oxygen Delivery Oxygen Flow Rate 02/15/24 12:40 02/15/24 12:46 02/15/24 13:35 Temperature 96.1 F L 96.1 F L 96.5 F L Pulse Rate 61 61 Respiratory Rate 17 15 Blood Pressure 106/47 L 113/49 L Pulse Oximetry 100 100 Oxygen Delivery Oxygen Flow Rate Exam Narrative: General: Chronically ill-appearing female sitting up in bed. Weight: 70.7 kg. HEENT: Normocephalic, atraumatic. PERRL, EOMI. Sclera anicteric. Moist mucous membranes. Upper and lower dentures noted. Crowded oropharynx. Neck: Supple. No nuchal rigidity or obvious thyromegaly. Respiratory: Respirations are nonlabored and lungs are clear to auscultation. Cardiovascular: Regular rate and rhythm with S1-S2. Soft murmur at the upper sternal border. Gastrointestinal: Abdomen is soft, nontender, and nondistended with positive bowel sounds. Genitourinary: Kaplan catheter draining slightly pink tinged, cloudy urine. Firm, nontender midline abdominal mass which is felt to be a seroma or chronic hematoma on prior imaging. Skin: Warm and dry. No rash or lesions on limited exam. Extremities: No cyanosis or clubbing. Status post bilateral [id number] amputation. Neurological: Alert and oriented x3 (self, place, year, could not name the president). Cranial nerves 2-12 are grossly intact. Speech is clear. No facial asymmetry. No gross 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 to casual conversation. Psychiatric: Cooperative with appropriate mood and flat affect. H&P: Results Labs Labs: Short CBC 02/15/24 Range/Units 12:50 WBC 5.3 (4.5-10.0) K/mm3 Hgb 11.1 L (12.0-15.0) g/dL Hct 35.8 L (37.0-47.0) % Plt Count 310 (150-375) k/mm3 BMP 02/15/24 12:50 Sodium 138 Potassium 4.0 Chloride 98 Carbon Dioxide 38 H BUN 24 H Creatinine 1.00 Glucose 105 Calcium 8.1 L Liver Function 02/15/24 Range/Units 12:50 Total Bilirubin 0.7 (0.2-1.3) mg/dL AST 35 (14-36) U/L ALT 13 (6-35) U/L Alkaline Phosphatase 46 (38-126) U/L Albumin 3.0 L (3.5-5.1) g/dL Urine 02/15/24 Range/Units 11:58 Urine Color Light red H (Yellow) Urine Appearance Turbid H (Clear) Urine pH 7.0 (5.0-9.0) Ur Specific [place] 1.018 (1.001-1.035) Urine Protein 3+ H (Negative) mg/dL Urine Glucose (UA) 2+ H (Negative) mg/dL Imaging Head CT 02/15/24 12:24 IMPRESSION: 1. Normal aging brain. Chest X-Ray 02/15/24 12:29 IMPRESSION: 1. PICC tip in the superior vena cava. 2. Cardiomegaly. Assessment and Plan Assessment and plan (1) Unresponsive episode: Code(s): R40.4 - Transient alteration of awareness Status: Acute Assessment and Plan: This will be the patient's 3rd admission to the hospital in less than 6 weeks with similar presentation. During her last visit she was evaluated by Neurology who felt her waxing and waning mentation was due to underlying dementia and multiple comorbidities. She does not appear to have any new 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 on exam and seems to be at her baseline. These episodes seem to be occurring more frequently. No further workup to be pursued. (2) C. difficile diarrhea: Onset Date: 01/2024 Code(s): A04.72 - Enterocolitis due to Clostridium difficile, not specified as recurrent Status: Acute Assessment and Plan: Continue p.o. vancomycin. 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 They recommend urinary diversion and she has a Kaplan catheter in place. * Currently has a PICC line and is receiving ertapenem and vancomycin for a total of 6 weeks. (4) Bacteriuria with pyuria: Code(s): R82.71 - Bacteriuria; R82.81 - Pyuria Status: Acute Assessment and Plan: She has a chronic indwelling Kaplan catheter for urinary diversion as detailed in HPI. * Urine probably it will always have bacteria and WBC related to the catheter and fistula. * Unlikely that this represents a true infection as she is afebrile with normal WBC count. (5) Combined systolic and diastolic congestive heart failure: Qualifiers: Heart failure chronicity: acute on chronic Qualified Code(s): I50.43 - Acute on chronic combined systolic (congestive) and diastolic (congestive) heart failure Code(s): I50.40 - Unspecified combined systolic (congestive) and diastolic (congestive) heart failure Status: Acute Assessment and Plan: She appears euvolemic on exam, blood pressures running a bit soft. * Avoid over-hydration. * Strict I/O and daily weights. * Continue GDM T with beta-leah, ARNi, SGLT 2 inhibitor; she is not on an MRA. (6) Hypertension: Code(s): I10 - Essential (primary) hypertension Status: Acute Assessment and Plan: Blood pressures were reviewed and they have been soft; she is nontoxic and euvolemic on exam. * Continue antihypertensives with parameters. (7) Type 2 diabetes mellitus: Code(s): E11.9 - Type 2 diabetes mellitus without complications Status: Acute Assessment and Plan: Recent hemoglobin A1c was 7.5%; she did have issues with hypoglycemia during her last hospitalization. * Continue Lantus at a reduced rate given tendency to run hypoglycemic while hospitalized. * Initiate sliding scale insulin, Accu-Cheks, and hypoglycemic protocol. Quality VTE Prophylaxis VTE prophylaxis: pharmacologic ordered The patient has been admitted under observation status. Hospitalist MIPS Advance Care Plan I have confirmed that the patient's Advanced Care Plan is present, code status is documented, or surrogate decision maker is listed in patient medical record.: Yes Medication Reconciliation I have utilized all available resources to obtain, update and review the patients current medications (includes all prescriptions, OTC, herbals, cannabis, and nutritional supplements).: Yes
[2024-02-15] MEDS: ERTAPENEM 1 GM/NS 50 ML 1 GM/50 ML BAG IVPB (14:27)
--- NOTE | 2024-02-15 15:33 | ADMGEN ---
This patient, Iris Pascual, was admitted to Medical Room 256-. Patient/family oriented to hospital policies and general routines including ID bracelet, bed and alarms, visiting hours, pain management, procedures, bathroom and other care routines, personal items, smoking policy, room service/diet, and visiting hours. Information on how to activate the Rapid Response Team has been discussed. Patient/Family are encouraged to report perceived risks to care and to ask questions if they do not understand what they are told or what they should do.
[2024-02-15 16:22] LABS: Glucose Point of Care 86 mg/dl (65-105)
--- NOTE | 2024-02-15 16:50 | ECG_ITS ---
Test Date: 2024-02-15 11:03:41 Measurements Intervals [place] Rate: 58 P: 36 [place]: 252 QRS: -52 QRSD: 94 T: 152 QT: 490 QTc: 483 Interpretive Statements SINUS BRADYCARDIA WITH FIRST DEGREE AV BLOCK MARKED LEFT AXIS DEVIATION [QRS AXIS < -30] PRIOR SEPTAL INFARCT NONSPECIFIC ST AND T WAVE ABNORMALITY Compared to ECG 01/30/2024 12:11:33 NO SIGNIFICANT CHANGES Electronically Signed On 02-16-2024 12:25:00 AUTOMATED TELLER MANAGER by Beto Ortez M.D.
[2024-02-15] MEDS: VANCOMYCIN HCL 125 MG ORAL CAPSULE PO ×2 (17:11→23:45)
[2024-02-15 18:32] LABS: MRSA (PCR) NOT DETECTED (NOT DETECTE)
[2024-02-15 20:55] LABS: Vancomycin Trough 13.3 ug/mL (10.0-20.0)
[2024-02-15 21:04] LABS: Glucose Point of Care 219 mg/dl (65-105)
[2024-02-15] MEDS: carvediloL 6.25 MG TABLET PO (21:47)
[2024-02-15] MEDS: ATORVASTATIN 40 MG TABLET PO (21:47)
[2024-02-15] MEDS: SACUBITRIL/VALSARTAN 24-26 MG TABLET 1 TAB PO (21:47)
[2024-02-15] MEDS: GABAPENTIN 300 MG CAPSULE PO (21:47)
[2024-02-15] MEDS: INSULIN GLARGINE (*BKC) 100 UNITS/ML SUB-Q (21:48)
[2024-02-15] MEDS: INSULIN ASPART (*BKC) 100 UNITS/ML SUB-Q (21:49)
[2024-02-15] MEDS: VANCOMYCIN 1,500 MG/NS 500 ML 1,500 MG/500 ML BAG 250 MG IVPB (21:52)
[2024-02-16] VITALS: PULSE 70
[2024-02-16 04:00] VITALS: BP 106/57; PULSE 67; PULSE 70; RESP 20; TEMP 36.2; O2SAT 98
[2024-02-16 05:23] LABS: Hematocrit 31.5 % (37.0-47.0); Hemoglobin 10.1 g/dL (12.0-15.0); Mean Corpuscular HGB Conc 32.1 g/dl (32-36); Mean Corpuscular Hemoglobin 31.4 pg (26-34); Mean Corpuscular Volume 97.8 fl (80-100); Mean Platelet Volume 8.8 fl (7.4-10.4); Platelet Count Result 268 k/mm3 (150-375); Red Blood Count 3.22 M/mm3 (4.2-5.4); Red Cell Distribution Width 15.6 % (11.5-14.5); White Blood Count 5.8 K/mm3 (4.5-10.0)
[2024-02-16 05:34] LABS: Anion Gap 1 mmol/L (4-12); Blood Urea Nitrogen 24 mg/dL (7-17); Calcium 7.6 mg/dL (8.4-10.2); Carbon Dioxide 36 mmol/L (22-30); Chloride 100 mmol/L (98-107); Estimated Glomerular Filt Rate > 60; Glucose 131 mg/dL (65-110); Potassium 4.2 mmol/L (3.4-5.0); Sodium 137 mmol/L (137-145)
[2024-02-16] MEDS: VANCOMYCIN HCL 125 MG ORAL CAPSULE PO ×2 (06:13→12:19)
[2024-02-16] MEDS: GABAPENTIN 300 MG CAPSULE PO ×2 (06:13→14:24)
[2024-02-16] MEDS: LEVOTHYROXINE SODIUM 100 MCG TABLET PO (06:13)
--- NOTE | 2024-02-16 06:50 | PC.NURSE ---
MIKE RUSS RN CALLED AND STATES PT CAN COME OFF ISOLATION.
[2024-02-16 07:55] LABS: Glucose Point of Care 126 mg/dl (65-105)
[2024-02-16 07:57] VITALS: BP 94/34; PULSE 67; RESP 16; TEMP 36.8; O2SAT 100
[2024-02-16 09:00] VITALS: PULSE 68; O2SAT 96
[2024-02-16 09:01] VITALS: PULSE 68
[2024-02-16] MEDS: POTASSIUM CHLORIDE 10 MEQ ER TABLET PO (09:01)
[2024-02-16] MEDS: FUROSEMIDE 40 MG TABLET PO (09:01)
[2024-02-16] MEDS: PANTOPRAZOLE 40 MG TABLET PO (09:01)
[2024-02-16] MEDS: carvediloL 6.25 MG TABLET PO (09:01)
[2024-02-16] MEDS: EMPAGLIFLOZIN 10 MG TABLET PO (09:01)
[2024-02-16] MEDS: SACUBITRIL/VALSARTAN 24-26 MG TABLET 1 TAB PO (09:01)
[2024-02-16] MEDS: ENOXAPARIN 40 MG/0.4 ML SYRINGE SUB-Q (09:02)
[2024-02-16] MEDS: ERTAPENEM 1 GM/NS 50 ML 1 GM/50 ML BAG IVPB (09:02)
[2024-02-16 11:31] LABS: Glucose Point of Care 189 mg/dl (65-105)
[2024-02-16 12:00] VITALS: BP 103/43; PULSE 72; RESP 16; TEMP 36.6; O2SAT 95
[2024-02-16 12:31] LABS: Free T4 Free Thyroxine Reflex 0.88 ng/dL (0.78-2.19)
[2024-02-16 13:14] LABS: Total Triiodothyronine (T3) 0.48 NG/ML (0.97-1.69)
[2024-02-16] MEDS: CENTRAL LINE FLUSH 10 ML IV PUSH (14:24)
--- NOTE | 2024-02-16 14:58 | P.DS_ITS ---
DS: Admitting Diagnosis Discharge Date 02/16/2024 Admitting Diagnosis AMS DS: Discharge Diagnosis Discharge Diagnosis (1) Unresponsive episode: Code(s): R40.4 - Transient alteration of awareness Status: Acute (2) C. difficile diarrhea: Onset Date: 01/2024 Code(s): A04.72 - Enterocolitis due to Clostridium difficile, not specified as recurrent Status: Acute (3) Osteomyelitis: Code(s): M86.9 - Osteomyelitis, unspecified Status: Acute (4) Bacteriuria with pyuria: Code(s): R82.71 - Bacteriuria; R82.81 - Pyuria Status: Acute (5) Combined systolic and diastolic congestive heart failure: Qualifiers: Heart failure chronicity: acute on chronic Qualified Code(s): I50.43 - Acute on chronic combined systolic (congestive) and diastolic (congestive) heart failure Code(s): I50.40 - Unspecified combined systolic (congestive) and diastolic (congestive) heart failure Status: Acute (6) Hypertension: Code(s): I10 - Essential (primary) hypertension Status: Acute (7) Type 2 diabetes mellitus: Code(s): E11.9 - Type 2 diabetes mellitus without complications Status: Acute Plan Discharge to SNF DS: Summary Hospital Course Reason for hospitalization: transient loss of awareness Hospital Course: HPI Medcial record: Patient was a 69-year-old female with dementia, hypertension, hyperlipidemia, peripheral vascular disease, combined systolic and diastolic congestive heart failure, chronic anemia, insulin-dependent type 2 diabetes mellitus, hypothyroidism, gastroesophageal reflux disease, anxiety, and history of breast cancer who presented to the emergency department via EMS from [facility] for evaluation after she was found unresponsive. She is alert and oriented x4 at the time of my evaluation provides the following history. This will be her 3rd admission to the hospital since 01/10/2024 after presenting with altered mental status. 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 In any event, she was sent in today after she was found unresponsive by staff at her nursing facility. No other information was provided by the transferring facility. EMS documents that she was found supine in her bed, was responsive to pain, and had stable vital signs. On triage she was moaning and open her eyes to painful stimuli. After a brief period of time in the ED she became alert and oriented x3 without any intervention. At the time of my evaluation she is sitting up eating a meal however about 45 minutes prior to that the nurse reports that she was asleep and difficult to arouse. She has no complaints at the time my evaluation and denies headache, vertigo, focal weakness, paresthesias, vision changes, sinus congestion, sore throat, cough, chest pain, shortness of breath, abdominal pain, back pain, nausea, vomiting, and diarrhea. Patient was evaluated the following day alert and oriented in distress or complaints. She does have episodes of hypoglycemia overnight which may be contributing factor to these unresponsive episodes so I discontinued her nightly insulin at this time. Patient had evaluation by neurology last admission, this was patient's 3rd admission to the hospital in less than 6 weeks with similar presentation. Neurology felt her waxing and waning mentation was due to unde rlying dementia and multiple comorbidities. She does not appear to have any new 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 on exam and seems to be at her baseline. These episodes seem to be occurring more frequently. No further workup was pursued. 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 Will continue her 6 week course of vancomyocin and ertapenem. Patient had developed C diff on previous admission however she has completed her oral vancomycin at this time. Patient was discharged back to custodial facility via EMS will need to monitor blood sugars closely patient is a brittle diabetic. Status at Discharge Functional status at discharge: bed bound Overall status at discharge: patient is back to baseline Time Spent with Patient Time attestation: Total time spent providing and/or coordinating discharge services: Time spent: Greater than 30 minutes Exam Narrative: General: Chronically ill-appearing female sitting up in bed. Weight: 70.7 kg. HEENT: Normocephalic, atraumatic. PERRL, EOMI. Sclera anicteric. Moist mucous membranes. Upper and lower dentures noted. Crowded oropharynx. Neck: Supple. No nuchal rigidity or obvious thyromegaly. Respiratory: Respirations are nonlabored and lungs are clear to auscultation. Cardiovascular: Regular rate and rhythm with S1-S2. Soft murmur at the upper sternal border. Gastrointestinal: Abdomen is soft, nontender, and nondistended with positive bowel sounds. Genitourinary: Kaplan catheter draining slightly pink tinged, cloudy urine. Firm, nontender midline abdominal mass which is felt to be a seroma or chronic hematoma on prior imaging. Skin: Warm and dry. No rash or lesions on limited exam. Extremities: No cyanosis or clubbing. Status post bilateral [id number] amputation. Neurological: Alert and oriented x3 (self, place, year, could not name the president). Cranial nerves 2-12 are grossly intact. Speech is clear. No facial asymmetry. No gross 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 to casual conversation. Psychiatric: Cooperative with appropriate mood and flat affect. DS: Data Data Completed and Pending Labs on day of discharge: Labs from last 24 hours 02/16/24 02/16/24 02/16/24 11:26 07:44 05:18 WBC 5.8 RBC 3.22 L Hgb 10.1 L Hct 31.5 L MCV 97.8 MCH 31.4 MCHC 32.1 RDW 15.6 H Plt Count 268 MPV 8.8 Sodium 137 Potassium 4.2 Chloride 100 Carbon Dioxide 36 H Anion Gap 1 L BUN 24 H Creatinine 0.80 Estim Creat Clear Calc Not Reportable Estimated GFR > 60 Glucose 131 H POC Capillary Glucose 189 H 126 H Calcium 7.6 L Magnesium 2.0 TSH (Reflex) 6.390 H Free T4 0.88 Total T3 0.48 L Nasal MRSA (PCR) Vancomycin Trough 02/15/24 02/15/24 02/15/24 20:12 19:33 17:15 WBC RBC Hgb Hct MCV MCH MCHC RDW Plt Count MPV Sodium Potassium Chloride Carbon Dioxide Anion Gap BUN Creatinine Estim Creat Clear Calc Estimated GFR Glucose POC Capillary Glucose 219 H Calcium Magnesium TSH (Reflex) Free T4 Total T3 Nasal MRSA (PCR) Not detected Vancomycin Trough 13.3 02/15/24 16:20 WBC RBC Hgb Hct MCV MCH MCHC RDW Plt Count MPV Sodium Potassium Chloride Carbon Dioxide Anion Gap BUN Creatinine Estim Creat Clear Calc Estimated GFR Glucose POC Capillary Glucose 86 Calcium Magnesium TSH (Reflex) Free T4 Total T3 Nasal MRSA (PCR) Vancomycin Trough Preliminary micro results at discharge 02/15/24 13:21 Blood Culture - Preliminary Blood 02/15/24 13:21 Blood Culture - Preliminary Blood Imaging Radiologist's impression: EXAMINATION: CT brain wo con DATE: 02/15/2024 12:20 INDICATION: Altered mental status. TECHNIQUE: Computed tomography (CT) of the head was performed without i ntravenous contrast. The mA was adjusted according to patient size. Iterative reconstruction technique was employed. The dose-length product was 529.67 mGy- cm. COMPARISON: Head CT 02/05/2024, brain MRI 02/06/2024 FINDINGS: There are scattered areas of low attenuation in the cerebral white matter, which is within normal limits for the patient's age. There is no intracranial hemorrhage, acute infarction, or abnormal intracranial mass lesion. The ventricles are normal in size. The orbits are normal. The paranasal sinuses are clear. The mastoid air cells are normal. IMPRESSION: 1. Normal aging brain. EXAMINATION: XR chest 1V DATE: 02/15/2024 12:25 INDICATION: Central line placement. TECHNIQUE: A single frontal view of the chest was obtained. COMPARISON: Chest single view 02/05/2024, chest CT 01/30/2024 FINDINGS: Again seen is mild elevation of right hemidiaphragm. No pneumonia, pleural effusion, or pneumothorax. Cardiomegaly is noted. Calcified mediastinal lymph nodes are consistent with old granulomatous disease. A right upper extremity peripherally inserted central venous catheter (PICC) is seen with tip in the superior vena cava. There is a peripherally calcified mass in right breast, likely a seroma. IMPRESSION: 1. PICC tip in the superior vena cava. 2. Cardiomegaly. Discharge Plan Discharge Attending physician on discharge: Shayne Mtz Consulting providers: Paula Moore; Bob Tan Ripa K. Discharging Clinician: Sharon Mccarthy Anticipated Discharge Date/Time: 02/16/24 14:46 Patient Disposition: SNF Activity: as tolerated Diet: diabetic Discharge Instructions: * Her mental status continued to wax and wane prompting admission had previous been evaluated with a brain MRI and Neurology was consulted. Neurology recommended since the patient had no other neurological findings no further intervention will be necessary and also no specific diagnostic test would need to be preformed to further evaluate. Neurology felt the waxing and waning of orientation was likely underlying dementia and myriad of comorbidities. * Osteomyelitis of pubic symphysis and no bone biopsy completed. Patient will need to discharge with ertapenem and vancomycin for 6 weeks with weekly CBC, CMP, and vancomycin trough. PICC line dressing changes weekly or as needed for soiled dressing. * C-diff colitis prior to admission. Patient will need to complete 10 days of oral vancomycin therapy. Contact isolation advised. * You need to follow up with your PCP and Urology. Please contact their office to schedule appointment * Please monitor for signs and symptoms of worsening infection including fever, chills, body aches, discolored urine, flank pain, nausea or vomiting. Should you experience these symptoms please come for evaluation. How can you care for yourself at home? ? Keep track of any new symptoms or changes in your symptoms. ? Rest until you feel better. ? Be safe with medicines. Take your medicines exactly as prescribed. Call your doctor if you think you are having a problem with your medicine. ? Do not drive after taking a prescription pain medicine. ? Ensure to follow-up with primary care physician as indicated and provide updated medication list provided to you at discharge. When should you call for help? Call 911 anytime you think you may need emergency care. For example, call if: ? You passed out (lost consciousness). Call your doctor now or seek immediate medical care if: ? You have new symptoms like fever, difficulty breathing, Chest pain, vomiting, or rash. ? You have new or different pain. ? You are confused and are having trouble thinking clearly. ? Your symptoms are getting worse. Watch closely for changes in your health, and be sure to contact your doctor if: ? You do not get better as expected. Patient Instructions: Dementia (GEN), C. Diff (Clostridioides Difficile) Infection (DC) Patient Language: Danish Stand Alone Forms: General Discharge Information, Senior Living Discharge Follow-up/Referrals: UNKNOWN,DOCTOR [Primary Care Provider] - 2 Weeks (Primary) Discharge Medications: Continued atorvastatin 40 mg tablet 40 mg PO HS ondansetron HCl 4 mg tablet 4 mg PO Q8H PRN (Reason: Nausea) levothyroxine 100 mcg tablet 100 mcg PO DAILY gabapentin 300 mg capsule 300 mg PO TID potassium chloride 10 mEq capsule, extended release 10 meq PO DAILY furosemide [Lasix] 40 mg tablet 40 mg PO DAILY ferrous sulfate 325 mg (65 mg iron) Tablet 325 mg PO DAILY PRN (Reason: anemia) Entresto 24-26 mg Tablet 1 tablet PO Q12H naloxone 4 mg/actuation Cotton,Non-Aerosol 1 spray INTRANASAL Q2M PRN (Reason: OPIOD OVERDOSE) Rx Instructions: spray 1 dose into RIGHT nostril; alternate nostrils w each dose until RESPONSIVE carvedilol [Coreg] 6.25 mg tablet 6.25 mg PO BID Rx Instructions: must administer with a meal/food tramadol 50 mg Tablet 50 mg PO Q8H PRN (Reason: pain) insulin aspart U-100 [Novolog U-100 Insulin aspart] 100 unit/mL solution See Rx Instructions .ROUTE .COMPLEX Qty: 10 0RF Rx Instructions: 150-200 3units, 201-250 6units, 251-300 9units, 301-350 12 units, 351-400 15 units, greater than 401-800 20 units and notify ertapenem 1 gram Recon Soln 1 g IM DAILY vancomycin 1.5 gram Recon Soln 1.5 g IV DAILY Rx Instructions: end date 03/26/24 magnesium hydroxide [Milk of Magnesia] 400 mg/5 mL Suspension 400 mg PO HS PRN (Reason: Constipation) Rx Instructions: if no BM in 3 days magnesium citrate [Citroma] Solution 150 ml PO DAILY PRN (Reason: Constipation) Rx Instructions: if no results from enema Fleet Enema 19-7 gram/118 mL Enema 118 ml RECTAL DAILY PRN (Reason: Constipation) Rx Instructions: if no results 1 day after suppository bisacodyl 10 mg Suppository 10 mg RECTAL DAILY PRN (Reason: Constipation) Rx Instructions: if no results from MOM omeprazole 20 mg Capsule,Delayed Release(Dr/Ec) 20 mg PO DAILY empagliflozin 10 mg Tablet 10 mg PO DAILY vancomycin 125 mg Capsule 125 mg PO Q6HR Qty: 4 0RF Rx Instructions: end date 02/18/24 Discontinued Lantus U-100 Insulin 8 unit subcut QHS Date of admission: 02/15/24 13:58 Primary Care Provider: UNKNOWN,DOCTOR Admitting Provider: Roman Quintero Attending physician on admission: Sharon Mccarthy Condition: Stable Quality VTE Prophylaxis VTE prophylaxis: pharmacologic ordered -Patient's previous records reviewed on admission -ER notes reviewed in detail on admission -discussed all findings and current treatment plan with patient/Family/POA -Consultations reviewed for recommendations -Patient's disposition for safe discharge discussed with corrections caseworker Dictation performed by [employer] direct speech recognition software, therefore hog ringer variants and typographical errors may occur. Hospitalist MIPS Heart Failure (Exclusion) Patient has history of Heart Transplant or Left Ventricular Assistive Device?: No IF YES, STOP HERE Heart Failure (Qualifier) Patient has current or prior documentation of LVEF less than or equal to 40%, or mod/servere depressed LVSF?: No IF NO, STOP HERE
[2024-02-16 17:11] LABS: Glucose Point of Care 183 mg/dl (65-105)
== END 2024-02-16 17:52 ==
LOC: ANHED 11:05 → ANH2MED 14:53
PROVIDERS: Physician Assistant; Admitting Provider General Practice; Emergency Provider Emergency Medicine; Visit Provider Nurse Practitioner Family
DX: A04.72 Enterocolitis due to Clostridium difficile, not specified as recurrent (principal); R40.4 Transient alteration of awareness; E11.69 Type 2 diabetes mellitus with other specified complication; M86.9 Osteomyelitis, unspecified; R82.71 Bacteriuria; R82.81 Pyuria; I50.43 Acute on chronic combined systolic (congestive) and diastolic (congestive) heart failure; I11.0 Hypertensive heart disease with heart failure; I50.40 Unspecified combined systolic (congestive) and diastolic (congestive) heart failure; F03.90 Unspecified dementia, unspecified severity, without behavioral disturbance, psychotic disturbance, mood disturbance, and anxiety; E78.5 Hyperlipidemia, unspecified; E11.40 Type 2 diabetes mellitus with diabetic neuropathy, unspecified; E11.51 Type 2 diabetes mellitus with diabetic peripheral angiopathy without gangrene; I25.2 Old myocardial infarction; K21.9 Gastro-esophageal reflux disease without esophagitis; D64.9 Anemia, unspecified; Z96.0 Presence of urogenital implants; Z85.3 Personal history of malignant neoplasm of breast; Z85.850 Personal history of malignant neoplasm of thyroid; Z79.4 Long term (current) use of insulin; Z79.84 Long term (current) use of oral hypoglycemic drugs
CPT/HCPCS: 36415; 36600; 70450; 71045; 80048; 80053; 80202; 81001; 82375; 82805; 82948; 83050; 83735; 84439; 84443; 84480; 85018; 85025; 85027; 85610; 85730; 87040; 87086; 87641; 93005; 96365; 96366; 96367; 96375; 99285; A9270; G0378; J1335; J1650; J1815; J3370

== ENCOUNTER 2024-02-17 13:27 | Emergency (ER) | payer MEDICARE, MEDICAID, SELFPAY ==
[2024-02-17] VITALS (65 sets, daily range): BP systolic 92–134; BP diastolic 29–92; PULSE 64–76; RESP 16–43; TEMP 36.9; O2SAT 97–100
--- NOTE | ~2024-02-17 | XR_ITS ---
EXAMINATION: XR chest 1V portable DATE: 02/17/2024 17:30 INDICATION: Altered mental status. TECHNIQUE: A single frontal view of the chest was obtained. COMPARISON: Chest single view 02/15/2024 FINDINGS: There is mild elevation of right hemidiaphragm. There is mild atelectasis at left lung base . No pleural effusion or pneumothorax. Cardiomegaly is noted. Calcified mediastinal lymph nodes are c onsistent with old granulomatous disease. There is a rim calcified mass in the right breast, likely a seroma. Surgical clips overlie the left chest. A right upper extremity peripherally inserted central venous catheter (PICC) is seen with tip in the superior vena cava. IMPRESSION: 1. Mild atelectasis at left lung base. 2. Cardiomegaly. Reviewed, dictated and finalized at location [facility]
[2024-02-17] MEDS: SODIUM CHLORIDE 0.9% IV 1,000 ML 999 ML IV CONT (15:14)
--- NOTE | 2024-02-17 17:09 | ED_ITS ---
HPI - General Adult General Chief complaint: Unspecified Stated complaint: low BP Time Seen by Provider: 02/17/24 14:29 History of Present Illness HPI narrative: 69-year-old female presenting with concerns for low blood pressure. She is coming from a nursing facility. Apparently they were unable to get a blood pressure on her this morning so they called EMS. Patient denies any complaints. Related Data Home Medications ?Medication ?Instructions ?Recorded ?Confirmed ?Last Taken ?Type atorvastatin 40 mg tablet 40 mg PO HS 12/05/21 02/23/24 02/22/24 History levothyroxine 100 mcg tablet 100 mcg PO DAILY 12/05/21 02/23/24 Unknown History ondansetron HCl 4 mg tablet 4 mg PO Q8H PRN Nausea 12/05/21 02/23/24 Unknown History gabapentin 300 mg capsule 300 mg PO TID 05/16/22 02/23/24 Unknown History potassium chloride 10 mEq 10 meq PO DAILY 05/16/22 02/23/24 Unknown History capsule,extended release furosemide 40 mg tablet (Lasix) 40 mg PO DAILY 01/10/24 02/23/24 Unknown History carvedilol 6.25 mg tablet (Coreg) 6.25 mg PO BID 01/30/24 02/23/24 02/23/24 History ferrous sulfate 325 mg (65 mg 325 mg PO DAILY PRN anemia 01/30/24 02/23/24 Unknown History iron) tablet naloxone 4 mg/actuation nasal spray 1 spray intranasal Q2M PRN OPIOD 01/30/24 02/23/24 Unknown History OVERDOSE sacubitril 24 mg-valsartan 26 mg 1 tablet PO Q12H 01/30/24 02/23/24 Unknown History tablet (Entresto) tramadol 50 mg tablet 50 mg PO Q8H PRN pain 01/30/24 02/23/24 Unknown History bisacodyl 10 mg rectal suppository 10 mg RECTAL DAILY PRN Constipation 02/15/24 02/23/24 Unknown History empagliflozin 10 mg tablet 10 mg PO DAILY 02/15/24 02/23/24 Unknown History ertapenem 1 gram solution for 1 g IM DAILY 02/15/24 02/23/24 02/14/24 08:00 History injection magnesium citrate (Citroma oral 150 ml PO DAILY PRN Constipation 02/15/24 02/23/24 Unknown History solution) magnesium hydroxide 400 mg/5 mL 400 mg PO HS PRN Constipation 02/15/24 02/23/24 Unknown History oral suspension (Milk of Magnesia) omeprazole 20 mg capsule,delayed 20 mg PO DAILY 02/15/24 02/23/24 Unknown History release sodium phosphates 19 gram-7 118 ml RECTAL DAILY PRN 02/15/24 02/23/24 Unknown History gram/118 mL enema (Fleet Enema) Constipation vancomycin 1.5 gram intravenous 1.5 g IV DAILY 02/15/24 02/23/24 02/14/24 10:30 History solution Allergies Allergy/AdvReac Type Severity Reaction Status Date / Time codeine Allergy Unknown Verified 01/30/24 15:44 Review of Systems 2 Review of Systems: All systems reviewed & are unremarkable except as noted in HPI and below PMFSH Past Medical History Medical History Anemia C. difficile diarrhea (01/2024) Combined systolic and diastolic congestive heart failure echocardiogram 12/06/2021: Severely reduced right ventricular systolic function with EF of 20-25%, moderate left ventricular chamber enlargement, moderate left atrial enlargement, grade 2 diastolic dysfunction Dementia Dyslipidemia Gastroesophageal reflux disease History of breast cancer Hyperlipidemia Hypertension Neuropathy Non-STEMI (non-ST elevated myocardial infarction) Peripheral vascular disease Psychiatric disorder Thyroid cancer Type 2 diabetes mellitus Urinary tract infection due to extended-spectrum beta lactamase (ESBL) producing Escherichia coli Surgical History Surgical History History of above-knee amputation of both lower extremities History of lumpectomy of left breast History of right breast implant Patient reports that it was radiation implant History of thyroid surgery Family History Family History Mother Family history of type 2 diabetes mellitus, Onset Age: 55 Father Acute myocardial infarction, Onset Age: 58 Social History Social History Social History: Surrogate medical decision maker: Ailyn Turner, daughter. Code status: Do not resuscitate with selective treatment (paperwork accompanies the patient). Smoking status: Unknown if ever smoked Second hand tobacco smoke exposure: No Alcohol intake: unknown Substance use: unknown Substance use type: does not use Do You Feel Safe in your Home?: Yes Lack of Transportation: No Lack of Food: Never True Current Housing: I Have Housing Concerned About Future Housing: No Difficulty Paying Gas/Electric Bills: No Difficulty Paying for Meds: No Currently Unemployed: No Education: High School Diploma/GED Difficulty w/ Childcare or Family Care: No Spiritual care concerns: No Exam 2 Narrative: GENERAL: Chronically ill-appearing, no acute distress, intermittently somnolent but arouses to verbal stimuli in responds appropriately HEAD: Normocephalic, atraumatic. EYES: PERRLA and EOMI. ENT: grossly unremarkable NECK: Supple. CHEST: Clear to auscultation. No respiratory distress. HEART: Regular rate and rhythm ABDOMEN: Soft, nontender, nondistended EXTREMITIES: bilateral above knee amputations SKIN: Warm, dry, no rash. NEURO: Alert and oriented x3. PSYCH: Normal mood and affect. Course Vital Signs Vital signs: Vital Signs Pulse Rate 66 02/17/24 13:37 Respiratory Rate 19 02/17/24 13:37 Pulse Oximetry 100 02/17/24 13:37 Temperature 98.4 F 02/17/24 13:42 Pulse Rate 70 02/17/24 22:31 Respiratory Rate 23 H 02/17/24 22:31 Blood Pressure 112/71 02/17/24 22:31 Pulse Oximetry 100 02/17/24 17:31 Medical Decision Making [facility] Narrative Medical decision making narrative: 69-year-old female presenting with concerns for low blood pressure. Here her blood pressures have been within normal limits. She denies any complaints. She was recently admitted due to waxing and waning mental status. She is a bit somnolent but she awakens easily and responds appropriately. She denies any complaints. Will check some basic labs and then likely discharge home. CMP with hypoglycemia. Patient has not eaten all day. She was provided with a meal repeat sugar is 125. Remainder of her workup is at baseline. She remains on IV antibiotics with a PICC line. Based on chart review her mental status has been waxing and waning for quite a while and she has been evaluated by neurology who feels it is related to her dementia and underlying comorbidities. She is safe to go back to her nursing facility. Her blood pressures here have been within normal limits. She denies any complaints. Discharged in stable condition. Differential Diagnosis Differential Diagnosis: Hypotension, hypoglycemia, altered mental status Medical Records Medical records reviewed: Yes I reviewed the external patient's medical records. Vital Signs Vital Signs: Vital Signs Pulse Rate 66 02/17/24 13:37 Respiratory Rate 19 02/17/24 13:37 Pulse Oximetry 100 02/17/24 13:37 Temperature 98.4 F 02/17/24 13:42 Pulse Rate 70 02/17/24 22:31 Respiratory Rate 23 H 02/17/24 22:31 Blood Pressure 112/71 02/17/24 22:31 Pulse Oximetry 100 02/17/24 17:31 Lab Data Lab results reviewed: Yes I reviewed the patient's lab results. 02/17/24 17:44 02/17/24 17:44 Labs: Lab Results 02/17/24 02/17/24 Range/Units 17:44 19:16 WBC 5.3 (4.5-10.0) K/mm3 RBC 3.03 L (4.2-5.4) M/mm3 Hgb 9.1 L (12.0-15.0) g/dL Hct 30.0 L (37.0-47.0) % MCV 99.0 (80-100) fl MCH 30.0 (26-34) pg MCHC 30.3 L (32-36) g/dl RDW 15.8 H (11.5-14.5) % Plt Count 265 (150-375) k/mm3 MPV 9.1 (7.4-10.4) fl Immature Gran % (Auto) 0.2 (0-0.5) % Neut % (Auto) 65.1 (45.5-73.1) % Lymph % (Auto) 21.8 (18.3-44.2) % [place] % (Auto) 8.8 H (2.6-8.5) % Eos % (Auto) 3.2 (0-4.4) % Baso % (Auto) 0.9 (0.2-1.2) % Lymph # (Auto) 1.16 (0.9-3.2) K/mm3 [place] # (Auto) 0.5 (0.1-0.6) K/mm3 Eos # (Auto) 0.2 (0-0.3) K/mm3 Baso # (Auto) 0.1 (0.0-0.1) K/mm3 Abs Immat Gran (auto) 0.01 (0.00-0.031) K/mm3 Absolute Neuts (auto) 3.5 (1.3-6.7) K/mm3 Absolute Nucleated RBC 0.000 (0.0-0.012) K/mm3 Nucleated RBC % 0.0 (0.0-0.2) % Sodium 139 (137-145) mmol/L Potassium 4.1 (3.4-5.0) mmol/L Chloride 103 (98-107) mmol/L Carbon Dioxide 35 H (22-30) mmol/L Anion Gap 1 L (4-12) mmol/L BUN 21 H (7-17) mg/dL Creatinine 0.90 (0.7-1.0) mg/dL Estim Creat Clear Calc Not Reportable Estimated GFR > 60 (59 - ) Glucose 53 L* (65-110) mg/dL POC Capillary Glucose 125 H (65-105) mg/dl Calcium 7.5 L (8.4-10.2) mg/dL Total Bilirubin 0.4 (0.2-1.3) mg/dL AST 30 (14-36) U/L ALT 13 (6-35) U/L Alkaline Phosphatase 46 (38-126) U/L Total Protein 7.0 (6.3-8.2) g/dL Albumin 2.9 L (3.5-5.1) g/dL Urine Color Other (Yellow) Urine Appearance Turbid H (Clear) Urine pH 6.0 (5.0-9.0) Ur Specific [place] 1.013 (1.001-1.035) Urine Protein 2+ H (Negative) mg/dL Urine Glucose (UA) Negative (Negative) mg/dL Urine Ketones Negative (Negative) mg/dL Ur Blood (Man) 3+ H (Negative) Urine Nitrate Negative (Negative) Urine Bilirubin Negative (Negative) Urine Urobilinogen 0.2 (<2.0) mg/dL Leukocyte Esterase Rfl 3+ H (Negative) PABLO/UL Urine RBC 51-100 H (0-2) /hpf Urine WBC >100 H (0-3) /hpf Ur Squamous Epith Cells Many H (Few) /hpf Urine Bacteria 4+ H /hpf Urine Casts 3-5 Imaging Data Radiologist's impression: ITS Impressions Chest X-Ray 02/17/24 19:43 IMPRESSION: 1. Mild atelectasis at left lung base. 2. Cardiomegaly. Critical Care Time Critical Care Time Critical Care Time: No Discharge Plan Discharge Clinical Impression: Intermittent sleepiness, UTI (urinary tract infection), Hypoglycemia Patient Disposition: NH [facility]/Asst Living Condition: Stable Instructions: Antibiotic Form, Urinary Tract Infection in Older Adults (ED) Additional Instructions: Your workup today is similar to the prior examinations earlier this month. Please continue the IV antibiotics. Follow-up with your primary. If your symptoms worsen or other concerning symptoms arise, please return to the ER. Patient Language: Monegasque Prescriptions: No Action atorvastatin 40 mg tablet 40 mg PO HS ondansetron HCl 4 mg tablet 4 mg PO Q8H PRN (Reason: Nausea) levothyroxine 100 mcg tablet 100 mcg PO DAILY gabapentin 300 mg capsule 300 mg PO TID potassium chloride 10 mEq capsule, extended release 10 meq PO DAILY furosemide [Lasix] 40 mg tablet 40 mg PO DAILY ferrous sulfate 325 mg (65 mg iron) Tablet 325 mg PO DAILY PRN (Reason: anemia) Entresto 24-26 mg Tablet 1 tablet PO Q12H naloxone 4 mg/actuation [place],Non-Aerosol 1 spray INTRANASAL Q2M PRN (Reason: OPIOD OVERDOSE) Rx Instructions: spray 1 dose into RIGHT nostril; alternate nostrils w each dose until RESPONSIVE carvedilol [Coreg] 6.25 mg tablet 6.25 mg PO BID Rx Instructions: must administer with a meal/food tramadol 50 mg Tablet 50 mg PO Q8H PRN (Reason: pain) insulin aspart U-100 [Novolog U-100 Insulin aspart] 100 unit/mL solution See Rx Instructions .ROUTE .COMPLEX Qty: 10 0RF Rx Instructions: 150-200 3units, 201-250 6units, 251-300 9units, 301-350 12 units, 351-400 15 units, greater than 401-800 20 units and notify ertapenem 1 gram Recon Soln 1 g IM DAILY vancomycin 1.5 gram Recon Soln 1.5 g IV DAILY Rx Instructions: end date 03/26/24 magnesium hydroxide [Milk of Magnesia] 400 mg/5 mL Suspension 400 mg PO HS PRN (Reason: Constipation) Rx Instructions: if no BM in 3 days magnesium citrate [Citroma] Solution 150 ml PO DAILY PRN (Reason: Constipation) Rx Instructions: if no results from enema Fleet Enema 19-7 gram/118 mL Enema 118 ml RECTAL DAILY PRN (Reason: Constipation) Rx Instructions: if no results 1 day after suppository bisacodyl 10 mg Suppository 10 mg RECTAL DAILY PRN (Reason: Constipation) Rx Instructions: if no results from MOM omeprazole 20 mg Capsule,Delayed Release(Dr/Ec) 20 mg PO DAILY empagliflozin 10 mg Tablet 10 mg PO DAILY Follow-up/Referrals: UNKNOWN,DOCTOR [Primary Care Provider] -
[2024-02-17 17:53] LABS: Basophils Absolute Auto 0.1 K/mm3 (0.0-0.1); Basophils Percent Auto 0.9 % (0.2-1.2); Eosinophils Absolute Auto 0.2 K/mm3 (0-0.3); Eosinophils Percent Auto 3.2 % (0-4.4); Hemoglobin 9.1 g/dL (12.0-15.0); Immature Granulocyte Absolute 0.01 K/mm3 (0.00-0.031); Immature Granulocyte Percent A 0.2 % (0-0.5); Lymphocytes Absolute Auto 1.16 K/mm3 (0.9-3.2); Lymphocytes Percent Auto 21.8 % (18.3-44.2); Mean Corpuscular HGB Conc 30.3 g/dl (32-36); Mean Platelet Volume 9.1 fl (7.4-10.4); Monocytes Absolute Auto 0.5 K/mm3 (0.1-0.6); Monocytes Percent Auto 8.8 % (2.6-8.5); Neutrophils Absolute Auto 3.5 K/mm3 (1.3-6.7); Neutrophils Percent Auto 65.1 % (45.5-73.1); Platelet Count Result 265 k/mm3 (150-375); Red Blood Count 3.03 M/mm3 (4.2-5.4); Red Cell Distribution Width 15.8 % (11.5-14.5); White Blood Count 5.3 K/mm3 (4.5-10.0)
[2024-02-17 18:01] LABS: Add Urine Microscopic? YES; Appearance Urine Turbid (Clear); Bacteria Urine 4+ /hpf; Bilirubin Urine Negative (Negative); Blood Urine 3+ (Negative); Glucose Urine UA Negative (Negative); Ketones Urine Negative (Negative); Leukocyte Esterase Ur 3+ LEU/UL (Negative); Nitrate Urine Negative (Negative); Protein Urine 2+ mg/dL (Negative); RBC Urine 51-100 /hpf (0-2); Specific Grav Ur 1.013 (1.001-1.035); Squamous Epithelial Cell Urine Many /hpf (Few); Urobilinogen Urine 0.2 mg/dL (<2.0); WBC Urine >100 /hpf (0-3)
[2024-02-17 18:02] LABS: Color Urine Other (Yellow)
[2024-02-17 18:10] LABS: Alanine Aminotransferase 13 U/L (6-35); Albumin Level 2.9 g/dL (3.5-5.1); Alkaline Phosphatase 46 U/L (38-126); Anion Gap 1 mmol/L (4-12); Aspartate Amino Transferase 30 U/L (14-36); Bilirubin,Total 0.4 mg/dL (0.2-1.3); Blood Urea Nitrogen 21 mg/dL (7-17); Calcium 7.5 mg/dL (8.4-10.2); Carbon Dioxide 35 mmol/L (22-30); Chloride 103 mmol/L (98-107); Estimated Glomerular Filt Rate > 60; Glucose 53 mg/dL (65-110); Potassium 4.1 mmol/L (3.4-5.0); Sodium 139 mmol/L (137-145)
[2024-02-17] MEDS: DEXTROSE 50% 25 GM/50 ML SYRINGE IV PUSH (18:21)
[2024-02-17 19:18] LABS: Glucose Point of Care 125 mg/dl (65-105)
== END 2024-02-17 23:33 ==
PROVIDERS: Emergency Provider Emergency Medicine
DX: N39.0 Urinary tract infection, site not specified (principal); E11.649 Type 2 diabetes mellitus with hypoglycemia without coma; R40.0 Somnolence; F03.90 Unspecified dementia, unspecified severity, without behavioral disturbance, psychotic disturbance, mood disturbance, and anxiety; I50.40 Unspecified combined systolic (congestive) and diastolic (congestive) heart failure; I11.0 Hypertensive heart disease with heart failure; I25.2 Old myocardial infarction; E11.51 Type 2 diabetes mellitus with diabetic peripheral angiopathy without gangrene; I73.9 Peripheral vascular disease, unspecified; E11.40 Type 2 diabetes mellitus with diabetic neuropathy, unspecified; E78.5 Hyperlipidemia, unspecified; Z66 Do not resuscitate; Z85.850 Personal history of malignant neoplasm of thyroid; Z89.612 Acquired absence of left leg above knee; Z89.611 Acquired absence of right leg above knee; Z79.899 Other long term (current) drug therapy; Z79.4 Long term (current) use of insulin
CPT/HCPCS: 36415; 71045; 80053; 81001; 82948; 85025; 87086; 96361; 96374; 99284; J7030

== ENCOUNTER 2024-02-23 14:32 | Inpatient (IN) | payer MEDICARE, MEDICAID, SELFPAY ==
--- NOTE | ~2024-02-23 | US_ITS ---
EXAMINATION: US renal BI DATE: 02/26/2024 10:48 INDICATION: Worsening acute renal insufficiency TECHNIQUE: Multiple ultrasound grayscale images of the kidneys were obtained. COMPARISON: CT dated 01/30/2024 FINDINGS: The right kidney measures 10.8 x 5.2 x 4.5 cm. The left kidney is suboptimally visualized but measure s 9.0 x 5.1 x 5.0 cm. The kidneys demonstrate normal echogenicity. There is no hydronephrosis in eith er kidney. No stones identified. There is a Kaplan catheter within the bladder which is incompletely distended limiting evaluation. There is persistent bladder wall thickening likely related to cystitis . IMPRESSION: 1. Normal kidneys without hydronephrosis. 2. Bladder wall thickening likely related to persistent cystitis and exaggerated by incomplete disten tion with a Kaplan catheter in place. Reviewed, dictated and finalized at location A. OTYPIST IMPRESSION: 1. Normal kidneys without hydronephrosis. 2. Bladder wall thickening likely related to persistent cystitis and exaggerate d by incomplete distention with a Kaplan catheter in place.
--- NOTE | ~2024-02-23 | XR_ITS ---
EXAMINATION: XR chest 1V portable DATE: 02/23/2024 18:28 INDICATION: Central line placement. TECHNIQUE: A single frontal view of the chest was obtained. COMPARISON: Chest single view 02/17/24 FINDINGS: There is no pneumonia, pleural effusion, or pneumothorax. Cardiomegaly is noted. A right up per extremity peripherally inserted central venous catheter (PICC) is seen with tip in the superior v sushila cava. There are surgical clips in left axilla. Calcified mediastinal lymph nodes are consistent w ith old granulomatous disease. IMPRESSION: 1. PICC tip in the superior vena cava. 2. Cardiomegaly. Reviewed, dictated and finalized at location A. ETING OPERATIONS INTERN
[2024-02-23 15:00] VITALS: BP 123/51; PULSE 78; RESP 18; TEMP 36.4; O2SAT 100
--- NOTE | 2024-02-23 15:45 | ED_ITS ---
HPI - Recheck/Abnormal Lab/Rx General Chief Complaint: Recheck/Abnormal Lab/Rx <Carlos Eduardo Donato PA-C - Last Filed: 02/23/24 18:23> Stated Complaint: abd labs <Carlos Eduardo Donato PA-C - Last Filed: 02/23/24 18:23> Time Seen by Provider: 02/23/24 15:42 <Carlos Eduardo Donato PA-C - Last Filed: 02/23/24 18:23> Source: patient <Carlos Eduardo Donato PA-C - Last Filed: 02/23/24 18:23> Mode of arrival: ambulatory <Carlos Eduardo Donato PA-C - Last Filed: 02/23/24 18:23> Limitations: no limitations <Carlos Eduardo Donato PA-C - Last Filed: 02/23/24 18:23> History of Present Illness HPI narrative: This is a 69-year-old female who presents to the ED via EMS for chief complaint of elevated vancomycin trough level L [facility]. Labs were sent over and the vancomycin is around 43.9. Creatinine 1.1. Previous creatinine 1 week ago was 0.9. Patient has no medical complaints at this time. <Carlos Eduardo Donato PA-C - Last Filed: 02/23/24 18:23> Related Data Home Medications: Home Medications ?Medication ?Instructions ?Recorded ?Confirmed ?Last Taken ?Type atorvastatin 40 mg tablet 40 mg PO HS 12/05/21 02/15/24 Unknown History levothyroxine 100 mcg tablet 100 mcg PO DAILY 12/05/21 02/15/24 Unknown History ondansetron HCl 4 mg tablet 4 mg PO Q8H PRN Nausea 12/05/21 02/15/24 Unknown History gabapentin 300 mg capsule 300 mg PO TID 05/16/22 02/15/24 Unknown History potassium chloride 10 mEq 10 meq PO DAILY 05/16/22 02/15/24 Unknown History capsule,extended release furosemide 40 mg tablet (Lasix) 40 mg PO DAILY 01/10/24 02/15/24 Unknown History carvedilol 6.25 mg tablet (Coreg) 6.25 mg PO BID 01/30/24 02/15/24 Unknown History ferrous sulfate 325 mg (65 mg 325 mg PO DAILY PRN anemia 01/30/24 02/15/24 Unknown History iron) tablet naloxone 4 mg/actuation nasal spray 1 spray intranasal Q2M PRN OPIOD 01/30/24 02/15/24 Unknown History OVERDOSE sacubitril 24 mg-valsartan 26 mg 1 tablet PO Q12H 01/30/24 02/15/24 Unknown History tablet (Entresto) tramadol 50 mg tablet 50 mg PO Q8H PRN pain 01/30/24 02/15/24 Unknown History bisacodyl 10 mg rectal suppository 10 mg RECTAL DAILY PRN Constipation 02/15/24 02/15/24 Unknown History empagliflozin 10 mg tablet 10 mg PO DAILY 02/15/24 02/15/24 Unknown History ertapenem 1 gram solution for 1 g IM DAILY 02/15/24 02/15/24 02/14/24 08:00 History injection magnesium citrate (Citroma oral 150 ml PO DAILY PRN Constipation 02/15/24 02/15/24 Unknown History solution) magnesium hydroxide 400 mg/5 mL 400 mg PO HS PRN Constipation 02/15/24 02/15/24 Unknown History oral suspension (Milk of Magnesia) omeprazole 20 mg capsule,delayed 20 mg PO DAILY 02/15/24 02/15/24 Unknown History release sodium phosphates 19 gram-7 118 ml RECTAL DAILY PRN 02/15/24 02/15/24 Unknown History gram/118 mL enema (Fleet Enema) Constipation vancomycin 1.5 gram intravenous 1.5 g IV DAILY 02/15/24 02/15/24 02/14/24 10:30 History solution <Carlos Eduardo Donato PA-C - Last Filed: 02/23/24 18:23> Allergies/Adverse Reactions: Allergies Allergy/AdvReac Type Severity Reaction Status Date / Time codeine Allergy Unknown Verified 01/30/24 15:44 <Carlos Eduardo Donato PA-C - Last Filed: 02/23/24 18:23> Review of Systems 2 Review of Systems: All systems as dictated in HPI <Carlos Eduardo Donato PA-C - Last Filed: 02/23/24 18:23> [facility] Past Medical History Medical History: Medical History Anemia C. difficile diarrhea (01/2024) Combined systolic and diastolic congestive heart failure echocardiogram 12/06/2021: Severely reduced right ventricular systolic function with EF of 20-25%, moderate left ventricular chamber enlargement, moderate left atrial enlargement, grade 2 diastolic dysfunction Dementia Dyslipidemia Gastroesophageal reflux disease History of breast cancer Hyperlipidemia Hypertension Neuropathy Non-STEMI (non-ST elevated myocardial infarction) Peripheral vascular disease Psychiatric disorder Thyroid cancer Type 2 diabetes mellitus Urinary tract infection due to extended-spectrum beta lactamase (ESBL) producing Escherichia coli <Carlos Eduardo Donato PA-C - Last Filed: 02/23/24 18:23> Surgical History Surgical History: Surgical History History of above-knee amputation of both lower extremities History of lumpectomy of left breast History of right breast implant Patient reports that it was radiation implant History of thyroid surgery <Carlos Eduardo Donato PA-C - Last Filed: 02/23/24 18:23> Family History Family History: Family History Mother Family history of type 2 diabetes mellitus, Onset Age: 55 Father Acute myocardial infarction, Onset Age: 58 <NITHYA Shelley Last Filed: 02/23/24 18:23> Social History Social History: Social History Social History: Surrogate medical decision maker: Ailyn Turner, daughter. Code status: Do not resuscitate with selective treatment (paperwork accompanies the patient). Smoking status: Unknown if ever smoked Second hand tobacco smoke exposure: No Alcohol intake: never Substance use: never Substance use type: does not use Do You Feel Safe in your Home?: Yes Lack of Transportation: No Lack of Food: Never True Current Housing: I Have Housing Concerned About Future Housing: No Difficulty Paying Gas/Electric Bills: No Difficulty Paying for Meds: No Currently Unemployed: No Education: Decline to Answer Difficulty w/ Childcare or Family Care: No Spiritual care concerns: No <NITHYA Shelley Last Filed: 02/23/24 18:23> Exam 2 Narrative: GENERAL: Well-appearing, well-nourished, and in no acute distress. HEAD: Normocephalic, atraumatic. EYES: PERRLA and EOMI. ENT: Nares clear, no rhinorrhea or epistaxis. Mucous membranes moist. Oropharynx without tonsillar hypertrophy exudate or other lesions. NECK: Supple. No adenopathy or masses. CHEST: No respiratory distress. Clear to auscultation. No wheezes rales or rhonchi HEART: Regular rate and rhythm. No murmur heard. Normal peripheral pulses. ABDOMEN: Soft, nontender, nondistended, normal active bowel sounds. MSK: Bilateral AKA present. SKIN: Warm, dry, no rash. NEURO: Alert and oriented x4. No 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. PSYCH: Normal mood and affect. <Carlos Eduardo Donato PA-C - Last Filed: 02/23/24 18:23> Course METAL LOADER/PA Physician Supervision I agree with midlevel documentation; I performed the medical decision making component of this evaluation. <Gabriela Parsons MD - Last Filed: 02/23/24 19:15> Vital Signs Vital signs: Vital Signs Temperature 97.6 F 02/23/24 15:00 Pulse Rate 78 02/23/24 15:00 Respiratory Rate 18 02/23/24 15:00 Blood Pressure 123/51 L 02/23/24 15:00 Pulse Oximetry 100 02/23/24 15:00 Temperature 97.6 F 02/23/24 15:00 Pulse Rate 75 02/23/24 18:00 Respiratory Rate 16 02/23/24 18:00 Blood Pressure 169/46 H 02/23/24 18:00 Pulse Oximetry 99 02/23/24 18:00 Oxygen Delivery Room Air 02/23/24 16:30 <Carlos Eduardo Donato PA-C - Last Filed: 02/23/24 18:23> Vital Signs Temperature 97.6 F 02/23/24 15:00 Pulse Rate 78 02/23/24 15:00 Respiratory Rate 18 02/23/24 15:00 Blood Pressure 123/51 L 02/23/24 15:00 Pulse Oximetry 100 02/23/24 15:00 Temperature 97.6 F 02/23/24 15:00 Pulse Rate 75 02/23/24 18:00 Respiratory Rate 16 02/23/24 18:00 Blood Pressure 169/46 H 02/23/24 18:00 Pulse Oximetry 99 02/23/24 18:00 Oxygen Delivery Room Air 02/23/24 16:30 <Gabriela Parsons MD - Last Filed: 02/23/24 19:15> MDM - Recheck/Abnormal Lab/Rx MDM Narrative Medical decision making narrative: This is a 69-year-old female who [facility] for complaint of elevated vancomycin trough. She is being treated outpatient with a PICC line for osteomyelitis with vancomycin and ertapenem. She has no complaints other than the abnormal labs. Our lab work does show a creatinine of 1.2. Yesterday was 1.1 and 1 week ago was 0.9. The creatinine is creeping up slightly which would be a concern with elevated vancomycin trough levels. I contacted the jail and was able to speak to the patient's nurse. She is explaining that they have no capabilities to do labs over the weekend. For this reason we will need to admit the patient for vancomycin trough levels and repeat kidney function levels. Patient is understanding and agreeable with plan for admission. Spoke with hospitalist, FRANCY Fowler who accepts admission under Dr. Davidson and will admit to med [facility] floor. <Carlos Eduardo Donato PA-C - Last Filed: 02/23/24 18:23> Lab Data Result diagrams: 02/23/24 16:38 02/23/24 16:38 <Carlos Eduardo Donato PA-C - Last Filed: 02/23/24 18:23> Labs: Lab Results 02/23/24 Range/Units 16:38 WBC 7.8 (4.5-10.0) K/mm3 RBC 3.39 L (4.2-5.4) M/mm3 Hgb 10.6 L (12.0-15.0) g/dL Hct 33.6 L (37.0-47.0) % MCV 99.1 (80-100) fl MCH 31.3 (26-34) pg MCHC 31.5 L (32-36) g/dl RDW 15.5 H (11.5-14.5) % Plt Count 318 (150-375) k/mm3 MPV 9.4 (7.4-10.4) fl Immature Gran % (Auto) 0.3 (0-0.5) % Neut % (Auto) 77.7 H (45.5-73.1) % Lymph % (Auto) 14.0 L (18.3-44.2) % [place] % (Auto) 4.9 (2.6-8.5) % Eos % (Auto) 2.3 (0-4.4) % Baso % (Auto) 0.8 (0.2-1.2) % Lymph # (Auto) 1.09 (0.9-3.2) K/mm3 [place] # (Auto) 0.4 (0.1-0.6) K/mm3 Eos # (Auto) 0.2 (0-0.3) K/mm3 Baso # (Auto) 0.1 (0.0-0.1) K/mm3 Abs Immat Gran (auto) 0.02 (0.00-0.031) K/mm3 Absolute Neuts (auto) 6.1 (1.3-6.7) K/mm3 Absolute Nucleated RBC 0.000 (0.0-0.012) K/mm3 Nucleated RBC % 0.0 (0.0-0.2) % Platelet Estimate Adequate (Adequate) % Immature Plt Fraction 2.1 (0.9-11.2) % Hypochromasia 1+ Anisocytosis 2+ Schistocytes None seen Sodium 137 (137-145) mmol/L Potassium 4.6 (3.4-5.0) mmol/L Chloride 103 (98-107) mmol/L Carbon Dioxide 28 (22-30) mmol/L Anion Gap 6 (4-12) mmol/L BUN 24 H (7-17) mg/dL Creatinine 1.20 H (0.7-1.0) mg/dL Estim Creat Clear Calc 33 ml/min Estimated GFR 54 L (59 - ) Glucose 191 H (65-110) mg/dL Calcium 8.4 (8.4-10.2) mg/dL <Carlos Eduardo Donato PA-C - Last Filed: 02/23/24 18:23> Lab Results 02/23/24 Range/Units 16:38 WBC 7.8 (4.5-10.0) K/mm3 RBC 3.39 L (4.2-5.4) M/mm3 Hgb 10.6 L (12.0-15.0) g/dL Hct 33.6 L (37.0-47.0) % MCV 99.1 (80-100) fl MCH 31.3 (26-34) pg MCHC 31.5 L (32-36) g/dl RDW 15.5 H (11.5-14.5) % Plt Count 318 (150-375) k/mm3 MPV 9.4 (7.4-10.4) fl Immature Gran % (Auto) 0.3 (0-0.5) % Neut % (Auto) 77.7 H (45.5-73.1) % Lymph % (Auto) 14.0 L (18.3-44.2) % [place] % (Auto) 4.9 (2.6-8.5) % Eos % (Auto) 2.3 (0-4.4) % Baso % (Auto) 0.8 (0.2-1.2) % Lymph # (Auto) 1.09 (0.9-3.2) K/mm3 [place] # (Auto) 0.4 (0.1-0.6) K/mm3 Eos # (Auto) 0.2 (0-0.3) K/mm3 Baso # (Auto) 0.1 (0.0-0.1) K/mm3 Abs Immat Gran (auto) 0.02 (0.00-0.031) K/mm3 Absolute Neuts (auto) 6.1 (1.3-6.7) K/mm3 Absolute Nucleated RBC 0.000 (0.0-0.012) K/mm3 Nucleated RBC % 0.0 (0.0-0.2) % Platelet Estimate Adequate (Adequate) % Immature Plt Fraction 2.1 (0.9-11.2) % Hypochromasia 1+ Anisocytosis 2+ Schistocytes None seen Sodium 137 (137-145) mmol/L Potassium 4.6 (3.4-5.0) mmol/L Chloride 103 (98-107) mmol/L Carbon Dioxide 28 (22-30) mmol/L Anion Gap 6 (4-12) mmol/L BUN 24 H (7-17) mg/dL Creatinine 1.20 H (0.7-1.0) mg/dL Estim Creat Clear Calc 33 ml/min Estimated GFR 54 L (59 - ) Glucose 191 H (65-110) mg/dL Calcium 8.4 (8.4-10.2) mg/dL <Gabriela Parsons MD - Last Filed: 02/23/24 19:15> Discharge Plan Discharge Clinical Impression: Abnormal laboratory test <Carlos Eduardo Donato PA-C - Last Filed: 02/23/24 18:23> Patient Disposition: Still a Patient <Carlos Eduardo Donato PA-C - Last Filed: 02/23/24 18:23> Condition: Stable <Carlos Eduardo Donato PA-C - Last Filed: 02/23/24 18:23>
[2024-02-23 16:30] VITALS: BP 133/55; PULSE 76; RESP 16; O2SAT 96
[2024-02-23] MEDS: HYDROcodone/acetaminophen (*CRX) 5-325 MG TABLET 1 TAB PO (16:39)
[2024-02-23 16:46] LABS: Basophils Absolute Auto 0.1 K/mm3 (0.0-0.1); Basophils Percent Auto 0.8 % (0.2-1.2); Eosinophils Absolute Auto 0.2 K/mm3 (0-0.3); Eosinophils Percent Auto 2.3 % (0-4.4); Hematocrit 33.6 % (37.0-47.0); Hemoglobin 10.6 g/dL (12.0-15.0); Immature Granulocyte Absolute 0.02 K/mm3 (0.00-0.031); Immature Granulocyte Percent A 0.3 % (0-0.5); Immature Platelet Fraction Pct 2.1 % (0.9-11.2); Lymphocytes Absolute Auto 1.09 K/mm3 (0.9-3.2); Mean Corpuscular HGB Conc 31.5 g/dl (32-36); Mean Corpuscular Hemoglobin 31.3 pg (26-34); Mean Corpuscular Volume 99.1 fl (80-100); Mean Platelet Volume 9.4 fl (7.4-10.4); Monocytes Absolute Auto 0.4 K/mm3 (0.1-0.6); Monocytes Percent Auto 4.9 % (2.6-8.5); Neutrophils Absolute Auto 6.1 K/mm3 (1.3-6.7); Neutrophils Percent Auto 77.7 % (45.5-73.1); Platelet Count Result 318 k/mm3 (150-375); Red Blood Count 3.39 M/mm3 (4.2-5.4); Red Cell Distribution Width 15.5 % (11.5-14.5); White Blood Count 7.8 K/mm3 (4.5-10.0)
[2024-02-23 16:54] LABS: Anion Gap 6 mmol/L (4-12); Blood Urea Nitrogen 24 mg/dL (7-17); Calcium 8.4 mg/dL (8.4-10.2); Carbon Dioxide 28 mmol/L (22-30); Chloride 103 mmol/L (98-107); Estimated CRCL calculation 33 ml/min; Estimated Glomerular Filt Rate 54; Glucose 191 mg/dL (65-110); Potassium 4.6 mmol/L (3.4-5.0); Sodium 137 mmol/L (137-145)
[2024-02-23 17:03] LABS: Hypochromasia 1+; Platelet Estimate Adequate (Adequate); Schistocytes None Seen
[2024-02-23 17:04] LABS: Anisocytosis 2+
[2024-02-23 18:00] VITALS: BP 169/46; PULSE 75; RESP 16; O2SAT 99
[2024-02-23 20:14] VITALS: BMI 46.1
--- NOTE | 2024-02-23 20:18 | ADMGEN ---
This patient, Iris Pascual, was admitted to [facility] Room 327-01. Patient/family oriented to hospital policies and general routines including ID bracelet, bed and alarms, visiting hours, pain management, procedures, bathroom and other care routines, personal items, smoking policy, room service/diet, and visiting hours. Information on how to activate the Rapid Response Team has been discussed. Patient/Family are encouraged to report perceived risks to care and to ask questions if they do not understand what they are told or what they should do.
--- NOTE | 2024-02-23 20:34 | P.HP_ITS ---
H&P: HPI History of Present Illness Date/Time: 02/23/24 20:34 Chief Complaint: Abnormal lab work Narrative: This is a 69-year-old female with past medical history significant for hypertension, systolic heart failure, bilateral above the knee amputation, chronic indwelling Kaplan catheter, type 2 diabetes mellitus, recurrent C difficile, gastroesophageal reflux disease, history of ESBL. Patient is a shelter resident undergoing treatment with meropenem and vancomycin PICC line in place was brought to the emergency room due to up trending creatinine on lab work and elevated vanc trough. EXAMINATION: XR chest 1V portable DATE: 02/23/2024 18:28 INDICATION: Central line placement. TECHNIQUE: A single frontal view of the chest was obtained. COMPARISON: Chest single view 02/17/24 FINDINGS: There is no pneumonia, pleural effusion, or pneumothorax. Cardiomegaly is noted. A right upper extremity peripherally inserted central venous catheter (PICC) is seen with tip in the superior vena cava. There are surgical clips in left axilla. Calcified mediastinal lymph nodes are consistent with old granulomatous disease. IMPRESSION: 1. PICC tip in the superior vena cava. 2. Cardiomegaly. Review of Systems Review of Systems: abnormal lab work [facility] Past Medical History Medical History Anemia C. difficile diarrhea (01/2024) Combined systolic and diastolic congestive heart failure echocardiogram 12/06/2021: Severely reduced right ventricular systolic function with EF of 20-25%, moderate left ventricular chamber enlargement, moderate left atrial enlargement, grade 2 diastolic dysfunction Dementia Dyslipidemia Gastroesophageal reflux disease History of breast cancer Hyperlipidemia Hypertension Neuropathy Non-STEMI (non-ST elevated myocardial infarction) Peripheral vascular disease Psychiatric disorder Thyroid cancer Type 2 diabetes mellitus Urinary tract infection due to extended-spectrum beta lactamase (ESBL) producing Escherichia coli Surgical History Surgical History History of above-knee amputation of both lower extremities History of lumpectomy of left breast History of right breast implant Patient reports that it was radiation implant History of thyroid surgery Family History Family History Mother Family history of type 2 diabetes mellitus, Onset Age: 55 Father Acute myocardial infarction, Onset Age: 58 Social History Social History Social History: Surrogate medical decision maker: Ailyn Turner, daughter. Code status: Do not resuscitate with selective treatment (paperwork accompanies the patient). Smoking status: Unknown if ever smoked Second hand tobacco smoke exposure: No Alcohol intake: unknown Substance use: unknown Substance use type: does not use Do You Feel Safe in your Home?: Yes Lack of Transportation: No Lack of Food: Never True Current Housing: I Have Housing Concerned About Future Housing: No Difficulty Paying Gas/Electric Bills: No Difficulty Paying for Meds: No Currently Unemployed: No Education: High School Diploma/GED Difficulty w/ Childcare or Family Care: No Spiritual care concerns: No Meds Home Medications and Allergies Home Medications ?Medication ?Instructions ?Recorded ?Confirmed ?Type atorvastatin 40 mg tablet 40 mg PO HS 12/05/21 02/23/24 History levothyroxine 100 mcg tablet 100 mcg PO DAILY 12/05/21 02/23/24 History ondansetron HCl 4 mg tablet 4 mg PO Q8H PRN Nausea 12/05/21 02/23/24 History gabapentin 300 mg capsule 300 mg PO TID 05/16/22 02/23/24 History potassium chloride 10 mEq 10 meq PO DAILY 05/16/22 02/23/24 History capsule,extended release furosemide 40 mg tablet (Lasix) 40 mg PO DAILY 01/10/24 02/23/24 History carvedilol 6.25 mg tablet (Coreg) 6.25 mg PO BID 01/30/24 02/23/24 History ferrous sulfate 325 mg (65 mg 325 mg PO DAILY PRN anemia 01/30/24 02/23/24 History iron) tablet naloxone 4 mg/actuation nasal spray 1 spray intranasal Q2M PRN OPIOD 01/30/24 02/23/24 History OVERDOSE sacubitril 24 mg-valsartan 26 mg 1 tablet PO Q12H 01/30/24 02/23/24 History tablet (Entresto) tramadol 50 mg tablet 50 mg PO Q8H PRN pain 01/30/24 02/23/24 History insulin aspart U-100 100 unit/mL See Rx Instructions .Route 02/07/24 02/23/24 Rx subcutaneous solution (Novolog .COMPLEX #10 mL U-100 Insulin aspart) bisacodyl 10 mg rectal suppository 10 mg RECTAL DAILY PRN Constipation 02/15/24 02/23/24 History empagliflozin 10 mg tablet 10 mg PO DAILY 02/15/24 02/23/24 History ertapenem 1 gram solution for 1 g IM DAILY 02/15/24 02/23/24 History injection magnesium citrate (Citroma oral 150 ml PO DAILY PRN Constipation 02/15/24 02/23/24 History solution) magnesium hydroxide 400 mg/5 mL 400 mg PO HS PRN Constipation 02/15/24 02/23/24 History oral suspension (Milk of Magnesia) omeprazole 20 mg capsule,delayed 20 mg PO DAILY 02/15/24 02/23/24 History release sodium phosphates 19 gram-7 118 ml RECTAL DAILY PRN 02/15/24 02/23/24 History gram/118 mL enema (Fleet Enema) Constipation vancomycin 1.5 gram intravenous 1.5 g IV DAILY 02/15/24 02/23/24 History solution Allergies Allergy/AdvReac Type Severity Reaction Status Date / Time codeine Allergy Unknown Verified 01/30/24 15:44 Vital Signs Vital Signs - 24 hr 02/23/24 15:00 02/23/24 16:30 02/23/24 18:00 Temperature 97.6 F Pulse Rate 78 76 75 Respiratory Rate 18 16 16 Blood Pressure 123/51 L 133/55 L 169/46 H Pulse Oximetry 100 96 99 Oxygen Delivery Room Air Exam Narrative: sitting in bed Const: General: cooperative, comfortable, no acute distress, well developed, alert, awake, ill appearing chronically and edematous Nutritional Appearance: edematous Orientation/consciousness: patient oriented x3 HENMT: Head: normal to inspection, normocephalic and atraumatic Ears: hearing grossly normal bilaterally Face/Nose/Sinus: normal facial exam Face and sinus: normal facial exam Eyes: General: appearance normal, both eyes and all related structures Pupils: Equal, round and reactive pupils present EOM: EOMs intact bilaterally Neck: Neck: full ROM, no lymphadenopathy and no JVD Thyroid: thyroid normal Lymphatic: no lymphadenopathy noted Resp: Effort & Inspection: normal respiratory effort and able to speak in complete sentences Auscultation: clear to auscultation bilaterally Cardio: Jugular venous distension: no JVD Rate: regular rate Rhythm: regular rhythm Heart sounds: S1 normal heart sound present and S2 normal heart sound present GI: GI Palp: Yes Soft to palpation and Yes No hepatosplenomegaly present : General: Yes deferred Skin: Rashes: no rashes Wounds: no wounds Neuro: General: patient oriented x3 and CN's II-XI intact bilaterally Cranial nerves: Yes CN's II-XII intact bilaterally and Yes Equal, round and reactive pupils present Cognition (Neuro): normal cognition Speech: normal speech Gait exam (Neuro): Other gait observations present (B/L AKA) Motor exam (neuro): 5/5 motor strength present throughout Extrem: General: other (B/L AKA stump edema) H&P: Results Labs Labs: Short CBC 02/23/24 Range/Units 16:38 WBC 7.8 (4.5-10.0) K/mm3 Hgb 10.6 L (12.0-15.0) g/dL Hct 33.6 L (37.0-47.0) % Plt Count 318 (150-375) k/mm3 [facility] 02/23/24 16:38 Sodium 137 Potassium 4.6 Chloride 103 Carbon Dioxide 28 BUN 24 H Creatinine 1.20 H Glucose 191 H Calcium 8.4 Assessment and Plan Assessment and plan (1) Abnormal laboratory test: Code(s): R89.9 - Unspecified abnormal finding in specimens from other organs, systems and tissues Status: Acute Assessment and Plan: Continue to monitor BUN and creatinine gentle hydration continue to monitor BUN and creatinine holding vancomycin and meropenem (2) Chronic indwelling Kaplan catheter: Code(s): Z97.8 - Presence of other specified devices Status: Acute Assessment and Plan: Kaplan catheter care (3) Urinary tract infection due to extended-spectrum beta lactamase (ESBL) producing Escherichia coli: Code(s): N39.0 - Urinary tract infection, site not specified; B96.29 - Other Escherichia coli [E. coli] as the cause of diseases classified elsewhere; Z16.12 - Extended spectrum beta lactamase (ESBL) resistance Status: Acute Assessment and Plan: on vancomycin and Merrem (4) Type 2 diabetes mellitus: Code(s): E11.9 - Type 2 diabetes mellitus without complications Status: Acute Assessment and Plan: continue empagliflozin (5) C. difficile diarrhea: Onset Date: 01/2024 Code(s): A04.72 - Enterocolitis due to Clostridium difficile, not specified as recurrent Status: Acute Assessment and Plan: patient started on Dificid (6) Combined systolic and diastolic congestive heart failure: Qualifiers: Heart failure chronicity: acute on chronic Qualified Code(s): I50.43 - Acute on chronic combined systolic (congestive) and diastolic (congestive) heart failure Code(s): I50.40 - Unspecified combined systolic (congestive) and diastolic (congestive) heart failure Status: Acute Assessment and Plan: patient does not appear to be decompensated however bilateral stump edema is present (7) S/P AKA (above knee amputation) bilateral: Code(s): Z89.611 - Acquired absence of right leg above knee; Z89.612 - Acquired absence of left leg above knee Status: Acute Assessment and Plan: supportive care (8) GERD (gastroesophageal reflux disease): Code(s): K21.9 - Gastro-esophageal reflux disease without esophagitis Status: Acute Assessment and Plan: PPI Hospitalist MIPS Advance Care Plan I have confirmed that the patient's Advanced Care Plan is present, code status is documented, or surrogate decision maker is listed in patient medical record.: Yes Medication Reconciliation I have utilized all available resources to obtain, update and review the yon ents current medications (includes all prescriptions, OTC, herbals, cannabis, and nutritional supplements).: Yes
[2024-02-23 21:35] VITALS: BP 100/80; PULSE 78; RESP 18; TEMP 36.3; O2SAT 98
[2024-02-23] MEDS: traMADol HCL (*CRX) 50 MG TABLET PO (23:55)
[2024-02-24 00:04] LABS: Toxigenic C. Diff POSITIVE (NEGATIVE)
--- NOTE | 2024-02-24 00:16 | PC.NURSE ---
Spoke with Dr. Mcgee about patient positive for C-Diff. New orders received for dificid 200 mg BID.
[2024-02-24 05:15] LABS: Glucose Point of Care 208 mg/dl (65-105)
[2024-02-24 05:32] LABS: Anion Gap 4 mmol/L (4-12); Blood Urea Nitrogen 24 mg/dL (7-17); Calcium 8.2 mg/dL (8.4-10.2); Carbon Dioxide 30 mmol/L (22-30); Chloride 102 mmol/L (98-107); Estimated Glomerular Filt Rate 54; Glucose 205 mg/dL (65-110); Potassium 4.4 mmol/L (3.4-5.0); Sodium 136 mmol/L (137-145)
[2024-02-24 05:42] LABS: Vancomycin Trough 35.1 ug/mL (10.0-20.0)
[2024-02-24 05:43] VITALS: BP 136/84; PULSE 93; RESP 18; TEMP 37.4; O2SAT 97
[2024-02-24] MEDS: LEVOTHYROXINE SODIUM 100 MCG TABLET PO (05:57)
--- NOTE | 2024-02-24 07:47 | P.PNIM_ITS ---
Progress Note: A&P Assessment and Plan (1) Abnormal laboratory test: Code(s): R89.9 - Unspecified abnormal finding in specimens from other organs, systems and tissues Status: Acute Assessment and Plan: Per chart review, vanc trough was 43.9 at the facility resulting in patient being admitted for dose adjustments. Vanc trough 35.1 on am labs, continue to trend. Pharmacy to dose vanc when appropriate. 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 Urology evaluated patient and noted that given her significant/severe comorbidities I doubt that exhaustive evaluati on or repair of a urethral fistula, if present, would be feasible. - She is being covered with dual coverage based on urine culture and gram positive coverage. Continue ertapenem, holding vanc as trough remains elevated, end date 03/26/24. (3) C. difficile diarrhea: Onset Date: 01/2024 Code(s): A04.72 - Enterocolitis due to Clostridium difficile, not specified as recurrent Status: Acute Assessment and Plan: 02/22: c dif positive - Continue dificid - Monitor for bloody bowel movements,chest pain,SOB or dizziness/lightheadedness (4) Type 2 diabetes mellitus: Code(s): E11.9 - Type 2 diabetes mellitus without complications Status: Acute Assessment and Plan: - hypoglycemia protocol - POC blood glucose ACHS - home medication - empagliflozin 10 mg daily and 3 units TIDWM - correct regimen ordered - continue home medication (5) Combined systolic and diastolic congestive heart failure: Qualifiers: Heart failure chronicity: acute on chronic Qualified Code(s): I50.43 - Acute on chronic combined systolic (congestive) and diastolic (congestive) heart failure Code(s): I50.40 - Unspecified combined systolic (congestive) and diastolic (congestive) heart failure Status: Acute Assessment and Plan: Does not appear to be decompensated however bilateral stump edema is present - monitor (6) S/P AKA (above knee amputation) bilateral: Code(s): Z89.611 - Acquired absence of right leg above knee; Z89.612 - Acquired absence of left leg above knee Status: Acute Assessment and Plan: supportive care Time Spent With Patient Time with patient: 25 - 35 minutes Subjective Date/time seen: 02/24/24 07:47 Interval history: 69-year-old female with dementia, hypertension, hyperlipidemia, peripheral vascular disease, combined systolic and diastolic congestive heart failure, chronic anemia, insulin-dependent type 2 diabetes mellitus, hypothyroidism, gastroesophageal reflux disease, anxiety, and history of breast cancer who presented to the emergency department via EMS from [facility] for elevated vancomycin trough on lab work. Patient is pleasant lying in bed. She is AOx2 (self, place) during assessment. She is answering questions but gives short responses. She has no complaints at this time denying chest pain, shortness of breath, nausea/vomiting and abdominal pain. Review of Systems Review of Systems: All systems reviewed & are unremarkable except as noted in HPI and below Exam Narrative: AF HR 93 RR 18 SPo2 97 BP 136/84 General: female in no acute respiratory distress who is nontoxic appearing, lying semi recumbent in bed. HEENT: Normocephalic. Atraumatic. Extraocular movement intact. Sclera clear and anicteric. No facial asymmetry. Chest: Lungs are clear to auscultation bilaterlly. No wheezes or crackles. CV: Heart was regular rate and rhythm. S1-S2. No murmurs, gallops, or rubs. Abd: Abdomen was soft. Nontender. Nondistended. Postive bowel sounds. No organomegaly or masses. Ext: No clubbing, cyanosis, or edema. 2+ DP pulses bilaterally. Neuro: Patient is alert and oriented x2 giving very short answers. Speech is clear. Skin: Warm and dry. No rashes noted. Objective Data Vital Signs Vital Signs: Vital Signs - 24 hr 02/23/24 15:00 02/23/24 16:30 02/23/24 18:00 Temperature 97.6 F Pulse Rate 78 76 75 Respiratory Rate 18 16 16 Blood Pressure 123/51 L 133/55 L 169/46 H Pulse Oximetry 100 96 99 Oxygen Delivery Room Air 02/23/24 21:35 02/24/24 05:43 Temperature 97.4 F L 99.3 F Pulse Rate 78 93 Respiratory Rate 18 18 Blood Pressure 100/80 136/84 Pulse Oximetry 98 97 Oxygen Delivery Intake/Output Intake/Output: Intake & Output 02/21/24 02/22/24 02/23/24 02/24/24 23:59 23:59 23:59 23:59 Intake Total 300 Output Total 350 Balance -50 Meds/Results Medications: Active Medications Generic Name Dose Route Start Last Admin Trade Name Freq PRN Reason Stop Dose Admin Bisacodyl 10 mg 02/23/24 23:29 Bisacodyl 10 Mg Suppository RECTAL DAILY PRN Constipation Carvedilol 6.25 mg 02/24/24 09:00 Carvedilol 6.25 Mg Tablet PO BIDWM [facility] Empagliflozin 10 mg 02/24/24 09:00 Empagliflozin 10 Mg Tablet PO DAILY [facility] Ertapenem 1 gm 02/24/24 09:00 Ertapenem Sodium 1 Gm Vial IM DAILY [facility] Ferrous Sulfate 325 mg 02/24/24 09:00 Ferrous Sulfate [address] BY MOUTH DAILY [facility] Fidaxomicin 200 mg 02/24/24 09:00 Fidaxomicin 200 Mg Tablet PO Q12HR [facility] Gabapentin 300 mg 02/24/24 09:00 Gabapentin 300 Mg Capsule PO TID [facility] Insulin Aspart 3 units 02/24/24 08:00 Insulin Aspart (*Bkc) 100 Units/Ml 0.05 units/kg (3 units) SUB-Q TIDWM [facility] Levothyroxine Sodium 100 mcg 02/24/24 06:30 02/24/24 05:57 Levothyroxine Sodium 100 Mcg Tablet PO 100 mcg DAILY@0630 [facility] Administration Magnesium Hydroxide 5 ml 02/23/24 23:29 Magnesium Hydroxide Susp 30 Ml Udc PO HS PRN Constipation Non-Formulary Medication 1.5 gm 02/24/24 09:00 Vancomycin [Vancomycin] IVPB 03/25/24 08:59 DAILY [facility] Ondansetron HCl 4 mg 02/23/24 18:00 Ondansetron Inj 4 Mg/2 Ml Vial IV PUSH Q4H PRN Nausea Pantoprazole Sodium 40 mg 02/24/24 09:00 Pantoprazole 40 Mg Tablet PO QAM [facility] Sacubitril/Valsartan 1 tab 02/24/24 09:00 Sacubitril/Valsartan 24-26 Mg Tablet PO Q12HR [facility] Tramadol HCl 50 mg 02/23/24 23:29 02/23/24 23:55 Tramadol Hcl (*Crx) 50 Mg Tablet PO 50 mg Q8H PRN Administration pain Radiology Results: ITS Impressions Chest X-Ray 02/23/24 18:33 IMPRESSION: 1. PICC tip in the superior vena cava. 2. Cardiomegaly. Labs Labs: Laboratory Results - last 24 hr 02/23/24 02/23/24 02/24/24 16:38 21:22 05:08 WBC 7.8 RBC 3.39 L Hgb 10.6 L Hct 33.6 L MCV 99.1 MCH 31.3 MCHC 31.5 L RDW 15.5 H Plt Count 318 MPV 9.4 Immature Gran % (Auto) 0.3 Neut % (Auto) 77.7 H Lymph % (Auto) 14.0 L [place] % (Auto) 4.9 Eos % (Auto) 2.3 Baso % (Auto) 0.8 Lymph # (Auto) 1.09 [place] # (Auto) 0.4 Eos # (Auto) 0.2 Baso # (Auto) 0.1 Abs Immat Gran (auto) 0.02 Absolute Neuts (auto) 6.1 Absolute Nucleated RBC 0.000 Nucleated RBC % 0.0 Platelet Estimate Adequate % Immature Plt Fraction 2.1 Hypochromasia 1+ Anisocytosis 2+ Schistocytes None seen Sodium 137 Potassium 4.6 Chloride 103 Carbon Dioxide 28 Anion Gap 6 BUN 24 H Creatinine 1.20 H Estim Creat Clear Calc 33 Estimated GFR 54 L Glucose 191 H POC Capillary Glucose 208 H Calcium 8.4 Vancomycin Trough C. difficile (PCR) Positive A* 02/24/24 05:10 WBC RBC Hgb Hct MCV MCH MCHC RDW Plt Count MPV Immature Gran % (Auto) Neut % (Auto) Lymph % (Auto) [place] % (Auto) Eos % (Auto) Baso % (Auto) Lymph # (Auto) [place] # (Auto) Eos # (Auto) Baso # (Auto) Abs Immat Gran (auto) Absolute Neuts (auto) Absolute Nucleated RBC Nucleated RBC % Platelet Estimate % Immature Plt Fraction Hypochromasia Anisocytosis Schistocytes Sodium 136 L Potassium 4.4 Chloride 102 Carbon Dioxide 30 Anion Gap 4 BUN 24 H Creatinine 1.20 H Estim Creat Clear Calc Not Reportable Estimated GFR 54 L Glucose 205 H POC Capillary Glucose Calcium 8.2 L Vancomycin Trough 35.1 H C. difficile (PCR) Quality VTE Prophylaxis VTE prophylaxis: pharmacologic ordered
[2024-02-24] MEDS: GABAPENTIN 300 MG CAPSULE PO ×3 (09:37→18:43)
[2024-02-24] MEDS: PANTOPRAZOLE 40 MG TABLET PO (09:37)
[2024-02-24] MEDS: carvediloL 6.25 MG TABLET PO ×2 (09:37→18:43)
[2024-02-24] MEDS: FIDAXOMICIN 200 MG TABLET PO ×2 (09:37→20:54)
[2024-02-24] MEDS: FERROUS SULFATE 325 MG TABLET DR BY MOUTH (09:37)
[2024-02-24] MEDS: SACUBITRIL/VALSARTAN 24-26 MG TABLET 1 TAB PO ×2 (09:37→20:54)
[2024-02-24] MEDS: EMPAGLIFLOZIN 10 MG TABLET PO (09:37)
[2024-02-24] MEDS: ERTAPENEM SODIUM 1 GM in SODIUM CHLORIDE 0.9% IV 50 ML IVPB (10:37)
[2024-02-24 11:44] LABS: Glucose Point of Care 183 mg/dl (65-105)
[2024-02-24 14:00] VITALS: BP 106/52; PULSE 83; RESP 16; TEMP 37.1; O2SAT 92
[2024-02-24 16:45] LABS: Glucose Point of Care 191 mg/dl (65-105)
[2024-02-24 20:00] VITALS: PULSE 91; RESP 22; O2SAT 98
[2024-02-24 20:37] LABS: Glucose Point of Care 205 mg/dl (65-105)
[2024-02-24 21:24] VITALS: BP 114/74; PULSE 91; RESP 22; TEMP 36.7; O2SAT 98
[2024-02-25] MEDS: LEVOTHYROXINE SODIUM 100 MCG TABLET PO (05:23)
[2024-02-25 06:00] VITALS: BP 127/45; PULSE 82; RESP 14; TEMP 36.9; O2SAT 100
[2024-02-25 06:06] LABS: Estimated Glomerular Filt Rate 42
[2024-02-25 06:33] LABS: Vancomycin Random 26.4 ug/mL (10-20)
--- NOTE | 2024-02-25 07:28 | P.PNIM_ITS ---
Progress Note: A&P Assessment and Plan (1) Abnormal laboratory test: Code(s): R89.9 - Unspecified abnormal finding in specimens from other organs, systems and tissues Status: Acute Assessment and Plan: Per chart review, vanc trough was 43.9 at the facility resulting in patient being admitted for dose adjustments. Vanc trough 26.4 on am labs, continue to trend. Pharmacy to dose vanc when appropriate. Cr 1.50 on am labs, started on IV fluids 75 ml/hr. Urine output remains WNL. 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 Urology evaluated patient and noted that given her significant/severe comorbidities I doubt that exhaustive evaluation or repair of a urethral fistula, if present, would be feasible. - She is being covered with dual coverage based on urine culture and gram posit izabella coverage. Continue ertapenem, holding vanc as trough remains elevated, end date 03/26/24. (3) C. difficile diarrhea: Onset Date: 01/2024 Code(s): A04.72 - Enterocolitis due to Clostridium difficile, not specified as recurrent Status: Acute Assessment and Plan: 02/22: c dif positive - Continue dificid - Having soft formed stools, no signs of melena - Monitor for bloody bowel movements,chest pain,SOB or dizziness/lightheadedness (4) Iron deficiency anemia: Code(s): D50.9 - Iron deficiency anemia, unspecified Status: Acute Assessment and Plan: H/H 10.6/33.6. No signs of active bleeding. - Iron panel: Iron 16, TIBC 157, % sat 10 - B12 and folate WNL - Started on iron supplementation - Continue to monitor H/H (5) Type 2 diabetes mellitus: Code(s): E11.9 - Type 2 diabetes mellitus without complications Status: Acute Assessment and Plan: - hypoglycemia protocol - POC blood glucose ACHS - home medication - empagliflozin 10 mg daily and 3 units TIDWM - correct regimen ordered - continue home medication (6) Combined systolic and diastolic congestive heart failure: Qualifiers: Heart failure chronicity: acute on chronic Qualified Code(s): I50.43 - Acute on chronic combined systolic (congestive) and diastolic (congestive) heart failure Code(s): I50.40 - Unspecified combined systolic (congestive) and diastolic (congestive) heart failure Status: Acute Assessment and Plan: Does not appear to be decompensated however bilateral stump edema is present - monitor (7) S/P AKA (above knee amputation) bilateral: Code(s): Z89.611 - Acquired absence of right leg above knee; Z89.612 - Acquired absence of left leg above knee Status: Acute Assessment and Plan: supportive care Time Spent With Patient Time with patient: 25 - 35 minutes Subjective Date/time seen: 02/25/24 07:28 Interval history: 69-year-old female with dementia, hypertension, hyperlipidemia, peripheral vascular disease, combined systolic and diastolic congestive heart failure, chronic anemia, insulin-dependent type 2 diabetes mellitus, hypothyroidism, gastroesophageal reflux disease, anxiety, and history of breast cancer who presented to the emergency department via EMS from [facility] for elevated vancomycin trough on lab work. Patient is pleasant lying comfortably in bed. She has no complaints denying chest pain, shortness of breath, palpitations, nausea/vomiting and abdominal pain. She continues to have elevated vanc troughs and is now having an elevated Cr level. Started on IV fluids. Urine output remains WNL. Review of Systems Review of Systems: All systems reviewed & are unremarkable except as noted in HPI and below Exam Narrative: AF HR 82 RR 14 SpO2 100 BP 127/45 General: female in no acute respiratory distress who is nontoxic appearing, l cal semi recumbent in bed. HEENT: Normocephalic. Atraumatic. Extraocular movement intact. Sclera clear and anicteric. No facial asymmetry. Chest: Lungs are clear to auscultation bilaterally. No wheezes or crackles. CV: Heart was regular rate and rhythm. S1-S2. No murmurs, gallops, or rubs. Abd: Abdomen was soft. Nontender. Nondistended. Positive bowel sounds. No organomegaly or masses. Ext: No clubbing, cyanosis, or edema. Bilateral AKA. Neuro: Patient is alert and oriented x3. Speech is clear. Skin: Warm and dry. No rashes noted. Objective Data Vital Signs Vital Signs: Vital Signs - 24 hr 02/24/24 14:00 02/24/24 20:00 02/24/24 21:24 Temperature 98.7 F 98.1 F Pulse Rate 83 91 91 Respiratory Rate 16 22 H 22 H Blood Pressure 106/52 L 114/74 Pulse Oximetry 92 98 98 Oxygen Delivery Room Air 02/25/24 06:00 Temperature 98.4 F Pulse Rate 82 Respiratory Rate 14 Blood Pressure 127/45 L Pulse Oximetry 100 Oxygen Delivery Intake/Output Intake/Output: Intake & Output 02/22/24 02/23/24 02/24/24 02/25/24 23:59 23:59 23:59 23:59 Intake Total 800 350 Output Total 1200 340 Balance -400 10 Meds/Results Medications: Active Medications Generic Name Dose Route Start Last Admin Trade Name Freq PRN Reason Stop Dose Admin Bisacodyl 10 mg 02/23/24 23:29 Bisacodyl 10 Mg Suppository RECTAL DAILY PRN Constipation Carvedilol 6.25 mg 02/24/24 09:00 02/24/24 18:43 Carvedilol 6.25 Mg Tablet PO 6.25 mg BIDWM KASIE Administration Dextrose 12.5 gm 02/24/24 08:06 Dextrose 50% 25 Gm/50 Ml Syringe IV PUSH PRN PRN Hypoglycemia Protocol Empagliflozin 10 mg 02/24/24 09:00 02/24/24 09:37 Empagliflozin 10 Mg Tablet PO 10 mg DAILY KASIE Administration Enoxaparin Sodium 40 mg 02/25/24 09:00 Enoxaparin 40 Mg/0.4 Ml Syringe SUB-Q DAILY KASIE Ferrous Sulfate 325 mg 02/24/24 09:00 02/24/24 09:37 Ferrous Sulfate [address] BY MOUTH 325 mg DAILY KASIE Administration Fidaxomicin 200 mg 02/24/24 09:00 02/24/24 20:54 Fidaxomicin 200 Mg Tablet PO 200 mg Q12HR KASIE Administration Gabapentin 300 mg 02/24/24 09:00 02/24/24 18:43 Gabapentin 300 Mg Capsule PO 300 mg TID KASIE Administration Glucagon 1 mg 02/24/24 08:06 Glucagon For Inj 1 Mg Vial IM PRN PRN Hypoglycemia Protocol Glucose 15 gm 02/24/24 08:06 Glucose Oral Gel 15 Gm Of Glucse In 37.5 Gm Tube PO PRN PRN Hypoglycemia Protocol Dextrose 1,000 mls @ 100 mls/hr 02/24/24 08:06 Dextrose 5% 1,000 Ml IVPB PRN PRN Hypoglycemia Protocol Ertapenem 1 gm/ Sodium 50 mls @ 100 mls/hr 02/24/24 10:00 02/24/24 10:37 Chloride IVPB 100 mls/hr Q24H KASIE Administration Insulin Aspart 3 units 02/24/24 08:00 02/24/24 17:53 Insulin Aspart (*Bkc) 100 Units/Ml 0.05 units/kg (3 units) Not Given SUB-Q TIDWM KASIE Levothyroxine Sodium 100 mcg 02/24/24 06:30 02/25/24 05:23 Levothyroxine Sodium 100 Mcg Tablet PO 100 mcg DAILY@0630 KASIE Administration Magnesium Hydroxide 5 ml 02/23/24 23:29 Magnesium Hydroxide Susp 30 Ml Udc PO HS PRN Constipation Non-Formulary Medication 1.5 gm 02/24/24 09:00 Vancomycin [Vancomycin] IVPB 03/25/24 08:59 DAILY KASIE Ondansetron HCl 4 mg 02/23/24 18:00 Ondansetron Inj 4 Mg/2 Ml Vial IV PUSH Q4H PRN Nausea Pantoprazole Sodium 40 mg 02/24/24 09:00 02/24/24 09:37 Pantoprazole 40 Mg Tablet PO 40 mg QAM KASIE Administration Sacubitril/Valsartan 1 tab 02/24/24 09:00 02/24/24 20:54 Sacubitril/Valsartan 24-26 Mg Tablet PO 1 tab Q12HR KASIE Administration Tramadol HCl 50 mg 02/23/24 23:29 02/23/24 23:55 Tramadol Hcl (*Crx) 50 Mg Tablet PO 50 mg Q8H PRN Administration pain Radiology Results: ITS Impressions Chest X-Ray 02/23/24 18:33 IMPRESSION: 1. PICC tip in the superior vena cava. 2. Cardiomegaly. Labs Labs: Laboratory Results - last 24 hr 02/24/24 02/24/24 02/24/24 11:39 16:40 19:50 Creatinine Estim Creat Clear Calc Estimated GFR POC Capillary Glucose 183 H 191 H 205 H Random Vancomycin 02/25/24 05:21 Creatinine 1.50 H Estim Creat Clear Calc Not Reportable Estimated GFR 42 L POC Capillary Glucose Random Vancomycin 26.4 H Quality VTE Prophylaxis VTE prophylaxis: pharmacologic ordered
[2024-02-25 07:35] LABS: Basophils Absolute Auto 0.1 K/mm3 (0.0-0.1); Basophils Percent Auto 0.7 % (0.2-1.2); Eosinophils Percent Auto 0.1 % (0-4.4); Hematocrit 27.7 % (37.0-47.0); Hemoglobin 8.7 g/dL (12.0-15.0); Immature Granulocyte Absolute 0.02 K/mm3 (0.00-0.031); Immature Granulocyte Percent A 0.3 % (0-0.5); Lymphocytes Absolute Auto 1.21 K/mm3 (0.9-3.2); Lymphocytes Percent Auto 16.9 % (18.3-44.2); Mean Corpuscular HGB Conc 31.4 g/dl (32-36); Mean Corpuscular Hemoglobin 30.4 pg (26-34); Mean Corpuscular Volume 96.9 fl (80-100); Monocytes Absolute Auto 0.5 K/mm3 (0.1-0.6); Monocytes Percent Auto 7.4 % (2.6-8.5); Neutrophils Absolute Auto 5.4 K/mm3 (1.3-6.7); Neutrophils Percent Auto 74.6 % (45.5-73.1); Platelet Count Result 263 k/mm3 (150-375); Red Blood Count 2.86 M/mm3 (4.2-5.4); Red Cell Distribution Width 15.3 % (11.5-14.5); White Blood Count 7.2 K/mm3 (4.5-10.0)
[2024-02-25 07:44] LABS: Alanine Aminotransferase 10 U/L (6-35); Albumin Level 3.2 g/dL (3.5-5.1); Alkaline Phosphatase 40 U/L (38-126); Anion Gap 7 mmol/L (4-12); Aspartate Amino Transferase 23 U/L (14-36); Bilirubin,Total 0.6 mg/dL (0.2-1.3); Blood Urea Nitrogen 31 mg/dL (7-17); Calcium 8.2 mg/dL (8.4-10.2); Carbon Dioxide 28 mmol/L (22-30); Chloride 102 mmol/L (98-107); Estimated Glomerular Filt Rate 42; Glucose 174 mg/dL (65-110); Sodium 137 mmol/L (137-145)
[2024-02-25 08:12] LABS: Glucose Point of Care 179 mg/dl (65-105)
[2024-02-25 08:25] LABS: Iron 16 ug/dL (37-170)
[2024-02-25 08:34] LABS: Percent Iron Saturation 10 % (20-50)
[2024-02-25] MEDS: traMADol HCL (*CRX) 50 MG TABLET PO ×2 (08:49→17:24)
[2024-02-25] MEDS: GABAPENTIN 300 MG CAPSULE PO ×3 (08:50→17:40)
[2024-02-25] MEDS: carvediloL 6.25 MG TABLET PO ×2 (08:50→17:24)
[2024-02-25] MEDS: EMPAGLIFLOZIN 10 MG TABLET PO (08:50)
[2024-02-25] MEDS: SACUBITRIL/VALSARTAN 24-26 MG TABLET 1 TAB PO ×2 (08:50→20:39)
[2024-02-25] MEDS: FIDAXOMICIN 200 MG TABLET PO ×2 (08:50→20:39)
[2024-02-25] MEDS: FERROUS SULFATE 325 MG TABLET DR BY MOUTH (08:50)
[2024-02-25] MEDS: PANTOPRAZOLE 40 MG TABLET PO (08:50)
[2024-02-25] MEDS: SODIUM CHLORIDE 0.9% IV 1,000 ML 75 ML IV CONT ×2 (08:51→21:49)
[2024-02-25] MEDS: ENOXAPARIN 40 MG/0.4 ML SYRINGE SUB-Q (08:51)
[2024-02-25 09:30] LABS: Folic Acid 9.6 ng/mL (2.76->20)
[2024-02-25 09:35] VITALS: O2SAT 98
[2024-02-25] MEDS: ERTAPENEM SODIUM 0.5 GM in SODIUM CHLORIDE 0.9% IV 50 ML IVPB (11:00)
[2024-02-25 11:42] LABS: Glucose Point of Care 243 mg/dl (65-105)
[2024-02-25 14:00] VITALS: BP 100/58; PULSE 76; RESP 16; TEMP 37; O2SAT 93
[2024-02-25 16:35] LABS: Glucose Point of Care 251 mg/dl (65-105)
[2024-02-25] MEDS: INSULIN ASPART (*BKC) 100 UNITS/ML SUB-Q (17:21)
[2024-02-25] MEDS: FERROUS SULFATE 325 MG TABLET DR PO (17:24)
[2024-02-25 19:46] VITALS: BP 93/50; PULSE 72; RESP 16; TEMP 36.6; O2SAT 92
[2024-02-25 19:46] LABS: Glucose Point of Care 252 mg/dl (65-105)
[2024-02-25 20:00] VITALS: PULSE 72; RESP 16; O2SAT 92
[2024-02-26 05:17] LABS: Glucose Point of Care 177 mg/dl (65-105)
[2024-02-26 05:42] VITALS: BP 84/29; PULSE 64; RESP 18; TEMP 36.4; O2SAT 97
[2024-02-26] MEDS: LEVOTHYROXINE SODIUM 100 MCG TABLET PO (06:02)
[2024-02-26] MEDS: SODIUM CHLORIDE 0.9% IV 250 ML 999 ML IV CONT (06:02)
[2024-02-26 06:04] LABS: Basophils Absolute Auto 0.1 K/mm3 (0.0-0.1); Basophils Percent Auto 1.2 % (0.2-1.2); Eosinophils Absolute Auto 0.1 K/mm3 (0-0.3); Eosinophils Percent Auto 2.1 % (0-4.4); Hematocrit 25.1 % (37.0-47.0); Hemoglobin 7.7 g/dL (12.0-15.0); Immature Granulocyte Absolute 0.02 K/mm3 (0.00-0.031); Immature Granulocyte Percent A 0.3 % (0-0.5); Lymphocytes Absolute Auto 1.23 K/mm3 (0.9-3.2); Lymphocytes Percent Auto 21.1 % (18.3-44.2); Mean Corpuscular HGB Conc 30.7 g/dl (32-36); Mean Corpuscular Hemoglobin 30.3 pg (26-34); Mean Corpuscular Volume 98.8 fl (80-100); Monocytes Absolute Auto 0.7 K/mm3 (0.1-0.6); Monocytes Percent Auto 11.7 % (2.6-8.5); Neutrophils Absolute Auto 3.7 K/mm3 (1.3-6.7); Neutrophils Percent Auto 63.6 % (45.5-73.1); Platelet Count Result 203 k/mm3 (150-375); Red Blood Count 2.54 M/mm3 (4.2-5.4); Red Cell Distribution Width 15.6 % (11.5-14.5); White Blood Count 5.8 K/mm3 (4.5-10.0)
[2024-02-26 06:21] LABS: Alanine Aminotransferase 9 U/L (6-35); Albumin Level 2.9 g/dL (3.5-5.1); Alkaline Phosphatase 37 U/L (38-126); Anion Gap 4 mmol/L (4-12); Aspartate Amino Transferase 22 U/L (14-36); Bilirubin,Total 0.6 mg/dL (0.2-1.3); Blood Urea Nitrogen 34 mg/dL (7-17); Calcium 7.7 mg/dL (8.4-10.2); Carbon Dioxide 28 mmol/L (22-30); Chloride 102 mmol/L (98-107); Estimated Glomerular Filt Rate 30; Glucose 175 mg/dL (65-110); Sodium 134 mmol/L (137-145)
[2024-02-26 06:53] LABS: Vancomycin Random 20.1 ug/mL (10-20)
[2024-02-26 07:18] LABS: Glucose Point of Care 194 mg/dl (65-105)
--- NOTE | 2024-02-26 08:28 | P.PNIM_ITS ---
Progress Note: A&P Assessment and Plan (1) Abnormal laboratory test: Code(s): R89.9 - Unspecified abnormal finding in specimens from other organs, systems and tissues Status: Acute Assessment and Plan: Per chart review, vanc trough was 43.9 at the facility resulting in patient being admitted for dose adjustments. Vanc trough 20.1 on am labs, continue to trend. Pharmacy to dose vanc when appropriate. Cr 2.0 on am labs, started on IV fluids 75 ml/hr. If Cr continues to rise consider nephrology consult. Renal US: Normal kidneys without hydronephrosis. Bladder wall thickening likely related to persistent cystitis and exaggerated by incomplete distention with a Kaplan catheter in place. 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 Urology evaluated patient and noted that given her significant/severe comorbidities I doubt that exhaustive evaluation or repair of a urethral fistula, if present, would be feasible. - She is being covered with dual coverage based on urine culture and gram positive coverage. Continue ertapenem, holding vanc as trough remains elevated, end date 03/26/24. (3) C. difficile diarrhea: Onset Date: 01/2024 Code(s): A04.72 - Enterocolitis due to Clostridium difficile, not specified as recurrent Status: Acute Assessment and Plan: 02/22: c dif positive - Continue dificid - Having soft formed stools, no signs of melena - Monitor for bloody bowel movements,chest pain,SOB or dizziness/lightheadedness (4) Iron deficiency anemia: Code(s): D50.9 - Iron deficiency anemia, unspecified Status: Acute Assessment and Plan: H/H 10.6/33.6. No signs of active bleeding. - Iron panel: Iron 16, TIBC 157, % sat 10 - B12 and folate WNL - Started on iron supplementation - Continue to monitor H/H (5) Type 2 diabetes mellitus: Code(s): E11.9 - Type 2 diabetes mellitus without complications Status: Acute Assessment and Plan: - hypoglycemia protocol - POC blood glucose ACHS - home medication - empagliflozin 10 mg daily and 3 units TIDWM - correct regimen ordered - continue home medication (6) Combined systolic and diastolic congestive heart failure: Qualifiers: Heart failure chronicity: acute on chronic Qualified Code(s): I50.43 - Acute on chronic combined systolic (congestive) and diastolic (congestive) heart failure Code(s): I50.40 - Unspecified combined systolic (congestive) and diastolic (congestive) heart failure Status: Acute Assessment and Plan: Does not appear to be decompensated however bilateral stump edema is present - monitor (7) S/P AKA (above knee amputation) bilateral: Code(s): Z89.611 - Acquired absence of right leg above knee; Z89.612 - Acquired absence of left leg above knee Status: Acute Assessment and Plan: supportive care Time Spent With Patient Time with patient: 25 - 35 minutes Subjective Date/time seen: 02/26/24 08:28 Interval history: 69-year-old female with dementia, hypertension, hyperlipidemia, peripheral vascular disease, combined systolic and diastolic congestive heart failure, chronic anemia, insulin-dependent type 2 diabetes mellitus, hypothyroidism, gastroesophageal reflux disease, anxiety, and history of breast cancer who presented to the emergency department via EMS from [facility] for elevated vancomycin trough on lab work. Patient is pleasant lying in bed. She remains AOx3. Her appetite has improved today. She has no complaints denying chest pain, shortness of breath, nausea/vomiting and abdominal pain. She has not had any bowel movements today. Her H/H was low, but improved on reassessment. No signs of active bleeding. Her Cr continues to rise and now having slightly decreased UOP. Continue to monitor and if continues to worsen consider nephrology consult. Review of Systems Review of Systems: All systems reviewed & are unremarkable except as noted in HPI and below Exam Narrative: AF HR 86 RR 14 Spo2 95 BP 100/43 General: female in no acute respiratory distress who is nontoxic appearing, lying semi recumbent in bed. HEENT: Normocephalic. Atraumatic. Extraocular movement intact. Sclera clear and anicteric. No facial asymmetry. Chest: Lungs are clear to auscultation bilaterally. No wheezes or crackles. CV: Heart was regular rate and rhythm. S1-S2. No murmurs, gallops, or rubs. Abd: Abdomen was soft. Nontender. Nondistended. Positive bowel sounds. No organomegaly or masses. Ext: No clubbing, cyanosis, or edema. Bilateral AKA. Neuro: Patient is alert and oriented x3. Speech is clear. Skin: Warm and dry. No rashes noted. Objective Data Vital Signs Vital Signs: Vital Signs - 24 hr 02/25/24 09:35 02/25/24 14:00 02/25/24 19:46 Temperature 98.6 F 97.8 F Pulse Rate 76 72 Respiratory Rate 16 16 Blood Pressure 100/58 L 93/50 L Pulse Oximetry 98 93 92 Oxygen Delivery Room Air Fraction of Inspired Oxygen 21 02/25/24 20:00 02/26/24 05:42 Temperature 97.5 F L Pulse Rate 72 64 Respiratory Rate 16 18 Blood Pressure 84/29 L Pulse Oximetry 92 97 Oxygen Delivery Room Air Fraction of Inspired Oxygen 21 Intake/Output Intake/Output: Intake & Output 02/23/24 02/24/24 02/25/24 02/26/24 23:59 23:59 23:59 23:59 Intake Total 800 1682.5 250 Output Total 1200 790 75 Balance -400 892.5 175 Meds/Results Medications: Active Medications Generic Name Dose Route Start Last Admin Trade Name Freq PRN Reason Stop Dose Admin Bisacodyl 10 mg 02/23/24 23:29 Bisacodyl 10 Mg Suppository RECTAL DAILY PRN Constipation Carvedilol 6.25 mg 02/24/24 09:00 02/25/24 17:24 Carvedilol 6.25 Mg Tablet PO 6.25 mg BIDWM KASIE Administration Dextrose 12.5 gm 02/24/24 08:06 Dextrose 50% 25 Gm/50 Ml Syringe IV PUSH PRN PRN Hypoglycemia Protocol Empagliflozin 10 mg 02/24/24 09:00 02/25/24 08:50 Empagliflozin 10 Mg Tablet PO 10 mg DAILY KASIE Administration Enoxaparin Sodium 30 mg 02/26/24 09:00 Enoxaparin 30 Mg/0.3 Ml Syringe SUB-Q DAILY KASIE Ferrous Sulfate 325 mg 02/25/24 17:00 02/25/24 17:24 Ferrous Sulfate [address] PO 325 mg BID KASIE Administration Fidaxomicin 200 mg 02/24/24 09:00 02/25/24 20:39 Fidaxomicin 200 Mg Tablet PO 200 mg Q12HR KASIE Administration Gabapentin 300 mg 02/24/24 09:00 02/25/24 17:40 Gabapentin 300 Mg Capsule PO 300 mg TID KASIE Administration Glucagon 1 mg 02/24/24 08:06 Glucagon For Inj 1 Mg Vial IM PRN PRN Hypoglycemia Protocol Glucose 15 gm 02/24/24 08:06 Glucose Oral Gel 15 Gm Of Glucse In 37.5 Gm Tube PO PRN PRN Hypoglycemia Protocol Dextrose 1,000 mls @ 100 mls/hr 02/24/24 08:06 Dextrose 5% 1,000 Ml IVPB PRN PRN Hypoglycemia Protocol Sodium Chloride 1,000 mls @ 75 mls/hr 02/25/24 07:30 02/25/24 21:49 Normal Saline Iv IV CONT 75 mls/hr .[id number] KASIE Administration Ertapenem 0.5 gm/ Sodium 50 mls @ 100 mls/hr 02/25/24 10:00 02/25/24 11:00 Chloride IVPB 100 mls/hr Q24H KASIE Administration Insulin Aspart 3 units 02/24/24 08:00 02/26/24 08:28 Insulin Aspart (*Bkc) 100 Units/Ml 0.05 units/kg (3 units) Not Given SUB-Q TIDWM KASIE Levothyroxine Sodium 100 mcg 02/24/24 06:30 02/26/24 06:02 Levothyroxine Sodium 100 Mcg Tablet PO 100 mcg DAILY@0630 KASIE Administration Magnesium Hydroxide 5 ml 02/23/24 23:29 Magnesium Hydroxide Susp 30 Ml Udc PO HS PRN Constipation Non-Formulary Medication 1.5 gm 02/24/24 09:00 Vancomycin [Vancomycin] IVPB 03/25/24 08:59 DAILY [facility] Ondansetron HCl 4 mg 02/23/24 18:00 Ondansetron Inj 4 Mg/2 Ml Vial IV PUSH Q4H PRN Nausea Pantoprazole Sodium 40 mg 02/24/24 09:00 02/25/24 08:50 Pantoprazole 40 Mg Tablet PO 40 mg QAM KASIE Administration Sacubitril/Valsartan 1 tab 02/24/24 09:00 02/25/24 20:39 Sacubitril/Valsartan 24-26 Mg Tablet PO 1 tab Q12HR KASIE Administration Sodium Chloride 10 ml 02/26/24 14:00 Central Line Flush IV PUSH Q8HR KASIE Sodium Chloride 10 ml 02/26/24 08:17 Central Line Flush IV PUSH PRN PRN with TPN bag changes Sodium Chloride 20 ml 02/26/24 08:17 Central Line Flush IV PUSH PRN PRN after blood draws Tramadol HCl 50 mg 02/23/24 23:29 02/25/24 17:24 Tramadol Hcl (*Crx) 50 Mg Tablet PO 50 mg Q8H PRN Administration pain Radiology Results: ITS Impressions Chest X-Ray 02/23/24 18:33 IMPRESSION: 1. PICC tip in the superior vena cava. 2. Cardiomegaly. Labs Labs: Laboratory Results - last 24 hr 02/25/24 02/25/24 02/25/24 05:15 05:21 11:37 WBC RBC Hgb Hct MCV MCH MCHC RDW Plt Count MPV Immature Gran % (Auto) Neut % (Auto) Lymph % (Auto) [place] % (Auto) Eos % (Auto) Baso % (Auto) Lymph # (Auto) [place] # (Auto) Eos # (Auto) Baso # (Auto) Abs Immat Gran (auto) Absolute Neuts (auto) Absolute Nucleated RBC Nucleated RBC % Sodium Potassium Chloride Carbon Dioxide Anion Gap BUN Creatinine Estim Creat Clear Calc Estimated GFR Glucose POC Capillary Glucose 243 H Calcium TIBC 157 L % Saturation 10 L Total Bilirubin AST ALT Alkaline Phosphatase Total Protein Albumin Vitamin B12 998.0 H Folate 9.6 Random Vancomycin 02/25/24 02/25/24 02/26/24 16:32 19:35 05:12 WBC RBC Hgb Hct MCV MCH MCHC RDW Plt Count MPV Immature Gran % (Auto) Neut % (Auto) Lymph % (Auto) [place] % (Auto) Eos % (Auto) Baso % (Auto) Lymph # (Auto) [place] # (Auto) Eos # (Auto) Baso # (Auto) Abs Immat Gran (auto) Absolute Neuts (auto) Absolute Nucleated RBC Nucleated RBC % Sodium Potassium Chloride Carbon Dioxide Anion Gap BUN Creatinine Estim Creat Clear Calc Estimated GFR Glucose POC Capillary Glucose 251 H 252 H 177 H Calcium TIBC % Saturation Total Bilirubin AST ALT Alkaline Phosphatase Total Protein Albumin Vitamin B12 Folate Random Vancomycin 02/26/24 02/26/24 05:54 07:13 WBC 5.8 RBC 2.54 L Hgb 7.7 L Hct 25.1 L MCV 98.8 MCH 30.3 MCHC 30.7 L RDW 15.6 H Plt Count 203 MPV 9.0 Immature Gran % (Auto) 0.3 Neut % (Auto) 63.6 Lymph % (Auto) 21.1 [place] % (Auto) 11.7 H Eos % (Auto) 2.1 Baso % (Auto) 1.2 Lymph # (Auto) 1.23 [place] # (Auto) 0.7 H Eos # (Auto) 0.1 Baso # (Auto) 0.1 Abs Immat Gran (auto) 0.02 Absolute Neuts (auto) 3.7 Absolute Nucleated RBC 0.000 Nucleated RBC % 0.0 Sodium 134 L Potassium 4.0 Chloride 102 Carbon Dioxide 28 Anion Gap 4 BUN 34 H Creatinine 2.00 H Estim Creat Clear Calc Not Reportable Estimated GFR 30 L Glucose 175 H POC Capillary Glucose 194 H Calcium 7.7 L TIBC % Saturation Total Bilirubin 0.6 AST 22 ALT 9 Alkaline Phosphatase 37 L Total Protein 7.0 Albumin 2.9 L Vitamin B12 Folate Random Vancomycin 20.1 H Quality VTE Prophylaxis VTE prophylaxis: pharmacologic ordered
[2024-02-26 08:35] VITALS: BP 100/43; PULSE 86; RESP 14; TEMP 36.9; O2SAT 95
[2024-02-26] MEDS: FERROUS SULFATE 325 MG TABLET DR PO ×2 (08:37→16:59)
[2024-02-26] MEDS: EMPAGLIFLOZIN 10 MG TABLET PO (08:37)
[2024-02-26] MEDS: PANTOPRAZOLE 40 MG TABLET PO (08:37)
[2024-02-26] MEDS: GABAPENTIN 300 MG CAPSULE PO ×3 (08:37→16:58)
[2024-02-26 11:42] LABS: Glucose Point of Care 208 mg/dl (65-105)
[2024-02-26] MEDS: ERTAPENEM SODIUM 0.5 GM in SODIUM CHLORIDE 0.9% IV 50 ML IVPB (12:06)
[2024-02-26] MEDS: INSULIN ASPART (*BKC) 100 UNITS/ML SUB-Q ×2 (12:06→18:38)
[2024-02-26] MEDS: SACUBITRIL/VALSARTAN 24-26 MG TABLET 1 TAB PO (12:07)
[2024-02-26] MEDS: carvediloL 6.25 MG TABLET PO ×2 (12:07→16:59)
[2024-02-26] MEDS: SODIUM CHLORIDE 0.9% IV 1,000 ML 75 ML IV CONT (12:08)
[2024-02-26] MEDS: CENTRAL LINE FLUSH 10 ML IV PUSH ×2 (12:08→19:58)
[2024-02-26] MEDS: traMADol HCL (*CRX) 50 MG TABLET PO ×2 (12:09→19:57)
[2024-02-26] MEDS: FIDAXOMICIN 200 MG TABLET PO ×2 (12:10→19:57)
[2024-02-26] MEDS: ENOXAPARIN 30 MG/0.3 ML SYRINGE SUB-Q (12:10)
[2024-02-26 13:55] LABS: Hemoglobin 8.2 g/dL (12.0-15.0)
[2024-02-26 14:00] VITALS: BP 98/64; PULSE 69; RESP 18; TEMP 36.2; O2SAT 93
[2024-02-26 16:14] LABS: Glucose Point of Care 222 mg/dl (65-105)
[2024-02-26] MEDS: VANCOMYCIN 1,000 MG/NS 250 ML 1,000 MG/250 ML BAG 250 MG IVPB (18:38)
[2024-02-26 20:16] VITALS: BP 97/39; PULSE 66; RESP 16; TEMP 36.3; O2SAT 97
[2024-02-26 20:16] LABS: Glucose Point of Care 219 mg/dl (65-105)
--- OUTSIDE RECORDS SUMMARY | 2024-02-26 21:23 | XMS_ITS | Referral Summary ---
Author Organization [facility] Address [address] [place] [address] Care Team Providers Care Underwear Hemmer Name Role Phone Unavailable Primary Care Provider Unavailabl e Source Comments [facility],non-owned Affiliates and Associated Physician Practices is amultiple site organization consisting of ambulatory clinics and hospital sitesin [place], [place], [place] and [place]. This disclosure is being madepursuant to the Care Everywhere program and may not contain all information available regarding this patient. Last updated 17.[facility] Social History Tobacco Use Types Packs/Day Years Used Date Smoking Tobacco: Never Assessed Sex and Gender Information Value Date Recorded Sex Assigned at Not on file Gender Identity Not on file Sexual Orientation Not on file Plan of Treatment Not on file
--- OUTSIDE RECORDS SUMMARY | 2024-02-26 21:23 | XMS_ITS | Clinical Summary ---
Author Organization [facility] Address [address] [place] [address]. [place] [address] [place] [address] Care Team Providers Care Grout Machine Operator Name Role Phone Damon Swanson MD Unavailable [phone] Don Branham MD Primary Care Provider [phone] Allergies Active Allergy Reactions Criticality Noted Date Comments Codeine Nausea and Vomiting 12/10/2018 Medications chlorthalidone 25 MG tablet Take 1 tablet (25 mg total) by mouth daily. 30 tablet 0 Active gabapentin 300 MG capsule Take 1 capsule (300 mg total) by mouth 3 (three) times daily. 90 capsule 0 Active levothyroxine 50 MCG tablet Take 1 tablet (50 mcg total) by mouth daily. 30 tablet 0 Active Additional Information Patient taking differently: 75 mcgOral Daily (levothyroxine), Reported on 07/09/2019 insulin glargine 100 UNIT/ML injection (VIAL) Inject 15 Units into the skin nightly at bedtime. 1 vial 0 Active aspirin 325 MG tablet Take 1 tablet (325 mg total) by mouth daily. 180 tablet 0 Active atorvastatin 40 MG tablet Take 1 tablet (40 mg total) by mouth daily. 30 tablet 0 Active pantoprazole EC 40 MG tablet Take 1 tablet (40 mg total) by mouth daily. 30 tablet 0 Active Active Problems Problem Noted Date Diagnosed Date Infected decubitus ulcer 07/16/2019 Bacteremia 07/05/2019 Elevated troponin 06/29/2019 Essential hypertension 06/29/2019 Mixed hyperlipidemia 06/29/2019 Encephalopathy acute 06/28/2019 Generalized weakness 06/06/2019 Hyperglycemia 06/05/2019 Sepsis ([facility]) 05/07/2019 Ulcer of lower limb, left, l imited to breakdown of skin ([facility]) 03/12/2019 Peripheral vascular disease 03/12/2019 Malignant neoplasm of upper- 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, estrogen receptor negative ([facility]) 11/13/2017 Immunizations Name Administration Dates Next Due Tdap (Boostrix) 06/28/2019 Tdap (Generic) 06/28/2019 Social History Tobacco Use Types Packs/Day Years Used Date Smoking Tobacco: Never Smokeless Tobacco: Never Alcohol Use Standard Drinks/Week Comments No 0 (1 standard drink = 0.6 oz pur e alcohol) AUDIT-C Answer Date Recorded Frequency of Alcohol Consumption Never 12/10/2018 Average Number of Drinks Not on file 019 Frequency of Binge Drinking Not on file 11/13 Comments No Sex and Gender Information Value Date Recorded Sex Assigned at Not on file Legal Sex Female 6:54 PM CDT Gender Identity Not on file Sexual Orientation Not on file Last Filed Vital Signs Vital Sign Reading Time Taken Comments Blood Pressure 133/75 07/19/2019 3:20 AM CDT Pulse 67 07/19/2019 3:20 AM CDT Temperature 36.8 ??C (98.2 ??F) 07/19/2019 3:20 AM CD T Respiratory Rate 18 07/19/2019 3:20 AM CDT Oxygen Saturation 99% 07/19/2019 3:20 AM CDT Inhaled Oxygen Concentration - - Weight 80.9 kg (178 lb 5.6 oz) 07/17/2019 1:35 A M CDT Height 157.5 cm (5' 2 ) 07/17/2019 1:35 AM CDT Body Mass Index 32.62 07/17/2019 1:35 AM CDT Plan of Treatment Health Maintenance Due Date Last Done Comments Colorectal Cancer Screening Colonoscopy (10 Years) 1955 Hepatitis C 1973 Mammogram Screening 1995 Zoster Vaccines (1 of 2) 2005 RSV Immunization or 60+ Years (1 - 1-dose 60+ series) 2015 Annual Medicare Wellness Visit 01/15/2020 Dexa Scan (General) 01/15/2020 Pneumococcal Vaccine: 65+ Years (1 of 1 - PCV) 01/15/2020 COVID-19 Vaccine (1 - 2023-2 5 season) 2023 Influenza Adult (#1) 2023 DTaP, Tdap and Td Vaccines ( 3 - Td or Tdap) 06/27/2029 06/28/2019, 06/28/2019 Meningococcal Vaccine Aged Out No kailey debbie eligible based on patient's age to complete this topic RSV Immunizations Under 20 Months Aged Out No longer eligible b ased on patient's age to complete this topic Additional Health Concerns Infection Onset Date Last Indicated MRSA Comment:MRSA Blood Identified 06/28/2019 06/28/2019 07/01/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 07/08/2019 07/08/2019 Insurance MEDICARE MEDICAID MEDICARE MEDICAID Advance Directives Documents on File Type Date Recorded 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 Expl anation Advance Directives and Livin g Will 05/10/2019 2:41 PM * Full Code (Latest Code Status on File) Date Activated Date Inactivated Comments 07/16/2019 5:16 PM 07/19/2019 3:28 PM * Full Code Date Activated Date Inactivated Comments 07/10/2019 7:42 AM 07/16/2019 5:12 PM * Full Code Date Activated Date Inactivated Comments 06/29/2019 3:50 PM 07/09/2019 7:38 PM * Full Code Date Activated Date Inactivated Comments 06/05/2019 6:02 PM 06/07/2019 8:53 PM * Full Code Date Activated Date Inactivated Comments 05/07/2019 10:19 PM 05/17/2019 3:10 PM Care Teams Grout Machine Operator Relationship Specialty Start Date End Date Don Branham MD [address] [place] [address] PCP - General EMERGENCY MEDICINE 05/10/19 Damon Swanson MD INTERNAL MEDICINE 12/10/18
--- OUTSIDE RECORDS SUMMARY | 2024-02-26 21:23 | XMS_ITS | Encounter Summary ---
Author Organization [facility] Address [address] [place] [address]. [place] [address] [place] [address] Care Team Providers Care Netting Inspector Name Role Phone Damon Swanson MD Unavailable Don Branham MD Primary Care Provider [phone] Encounter Details Date Type Department Care Team (Late st Contact Info) Description 07/22/2019 Hospital Follow-up Call [facility] [address] [place] [id number] Genesis Turner RN Social History Tobacco Use Types Packs/Day Years [...] on file Sexual Orientation Not on file COVID-19 Exposure Response Date Recorded In the last month, have you been in contact with someone who was confirmed or suspected to have Coronavirus / COVID-19? No / Unsure 07/17/2019 1:46 PM CDT documented as of this encounter Functional Status * RETIRED Are you deaf or do you have serious difficulty hearing Answer Date of Assessment Author Status No 07/16/2019 10:31 PM CDT Acti ve * RETIRED Are you blind or do you have serious difficulty seeing, even when wearing glasses? Answer Date of Assessment Author Status No 07/16/2019 10:31 PM CDT Acti ve * Do you have serious difficulty walking or climbing stairs? Answer Date of Assessment Author Status Yes 07/16/2019 10:31 PM Eloisa Lezama RN Active * Do you have difficulty dressing or bathing? Answer Date of Assessment Author Status Yes 07/16/2019 10:31 PM Eloisa Lezmaa RN Active * Because of a physical, mental, or emotional condition, do you have difficulty doing errands alone such as visiting a doctor's office or shopping? Answer Date of Assessment Author Status Yes 07/16/2019 10:31 PM Eloisa Lezama RN Active documented as of this encounter Mental Status * Because of a physical, mental, or emotional condition, do you have serious difficulty concentrating, remembering, or making decisions? 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
--- OUTSIDE RECORDS SUMMARY | 2024-02-26 21:23 | XMS_ITS | Clinical Summary ---
Author Organization [facility] Address [address] [place] [address] Care Team Providers Care Wet Chemistry Analyst Name Role Phone Unavailable Primary Care Provider Unavailabl e Source Comments [facility],non-owned Affiliates and Associated Physician Practices is amultiple site organization consisting of ambulatory clinics and hospital sitesin [place], [place], [place] and [place]. This disclosure is being madepursuant to the Care Everywhere program and may not contain all information available regarding this patient. Last updated 17.[facility] Social History Tobacco Use Types Packs/Day Years Used Date Smoking Tobacco: Never Assessed Sex and Gender Information Value Date Recorded Sex Assigned at Not on file Gender Identity Not on file Sexual Orientation Not on file Plan of Treatment Health Maintenance Due Date Last Done Comments BONE DENSITY TESTING 1955 COLOGUARD (AGES 45-75) - COL ON CA SCREENING 1955 COLON MONITORING 1955 COLONOSCOPY - COLON CA SCREENING 1955 CT COLONOGRAPHY - COLON CA SCREENING 1955 Colorectal Cancer Screening 1955 FIT - COLON CA SCREENING 1955 FLEX SIG - COLON CA SCREENING 1955 LIPID TESTING 1955 MAMMOGRAM 1955 HEPATITIS C SCREENING 01/09/1973 DTAP/TDAP/TD VACCINES (1 - Tdap) 1974 ZOSTER VACCINE (1 of 2) 2005 PNEUMOCOCCAL VACCINE 65+ (1 of 1 - PCV) 01/15/2020 DEPRESSION SCREENING 03/13/2023 COVID-19 VACCINE ( - 2023-2 5 season) 2023 INFLUENZA VACCINE (#1) 2023 Respiratory Syncytial Virus (RSV) Vaccine Pt: or over 60 yrs (1 - 1-dose 75+ series) 2030 HEPATITIS B VACCINE Aged Out No longe r eligible based on patient's age to complete this topic HIB VACCINE Aged Out No longer eligi ble based on patient's age to complete this topic HPV VACCINE Aged Out No longer eligi ble based on patient's age to complete this topic MENINGOCOCCAL VACCINE Aged Out No kailey debbie eligible based on patient's age to complete this topic
--- OUTSIDE RECORDS SUMMARY | 2024-02-26 21:23 | XMS_ITS | Encounter Summary ---
Author Organization [facility] Address [address] [place] [address]. [place] [address] [place] [address] Care Team Providers Care Manager Community Development Name Role Phone Damon Swanson MD Unavailable [phone] Don Branham MD Primary Care Provider [phone] Encounter Details Date Type Department Care Team (Late st Contact Info) Description 04/16/2020 Orders Only [facility] [place] [address] Scooby Ragsdale MD Social History Tobacco Use Types Packs/Day Years [...] on file Sexual Orientation Not on file documented as of this encounter Functional Status [...] Assessment Author Status Yes 07/16/2019 10:31 PM CDT Eloisa Chaidez RN Active * Do you have difficulty dressing or bathing? Answer Date of Assessment Author Status Yes 07/16/2019 10:31 PM Eloisa Lezama RN Active * Because of a physical, [...] documented as of this encounter Care Teams Manager Community Development Relationship Specialty Start Date End Date Don Branham MD [address] [place] [address] PCP - General EMERGENCY MEDICINE 05/10/19 Damon Swanson MD INTERNAL MEDICINE 12/10/18 documented as of this encounter
--- OUTSIDE RECORDS SUMMARY | 2024-02-26 21:23 | XMS_ITS | Encounter Summary ---
Author Organization [facility] Address [address] [place] [address]. [place] [address] [place] [address] Care Team Providers Care Adobe Block Maker Name Role Phone Damon Swanson MD Unavailable [phone] Don Branham MD Primary Care Provider [phone] Reason for Visit * Reason Onset Date Comments Travel 07/31/2019 Encounter Details Date Type Department Care Team (Late st Contact Info) Description 07/31/2019 Telephone [facility] at [facility], [facility] [address] [place] [address] Khal[facility] Dang [facility] [address] [place] [address] Travel Social History Tobacco Use Types Packs/Day Years [...] PM CDT Eloisa Chaidez RN Active * Because of a physical, mental, or emotional condition, do you have difficulty doing errands alone such as visiting a doctor's office or shopping? Answer Date of Assessment Author Status Yes 07/16/2019 10:31 PM CDT Eloisa Chaidez RN Active documented as of this encounter Mental Status * Because of a physical, mental, or emotional condition, do you have serious difficulty concentrating, remembering, or making decisions? Answer Entry Date Author Status No 07/16/2019 10:31 PM CDT Eloisa Chaidez RN Active documented in this encounter Progress Notes * Neena Alfaro MA - 07/31/2019 2:38 PM CDT I tried calling [facility] to confirm her appt. And do the COVID screening. He cell phone went straight to voice mail and the voice mail had not been set up and I was unable to leave a message. 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
--- OUTSIDE RECORDS SUMMARY | 2024-02-26 21:23 | XMS_ITS | Patient Health Summary ---
Author Organization [facility] Address [address] [place] [address] Care Team Providers Care Wash Test Checker Name Role Phone Unavailable Primary Care Provider Unavailabl e Note from [facility],non-owned Affiliates and Associated Physician Practices is amultiple site organization consisting of ambulatory clinics and hospital sitesin [place], [place], [place] and [place]. This disclosure is being madepursuant to the Care Everywhere program and may not contain all information available regarding this patient. Last updated 17.[facility] Social History Tobacco Use Types Packs/Day Years Used Date Smoking Tobacco: Never Assessed Sex and Gender Information Value Date Recorded Sex Assigned at Not on file Gender Identity Not on file Sexual Orientation Not on file Procedures * BUN+CREATININE BLOOD PNL - POINT OF CARE(Performed 09/10/2010) Performed for Malignant neoplasm of breast (female), unspecified site (HCC), Breast ca (HCC) Results * (ABNORMAL) BUN+CREATININE BLOOD PNL - POINT OF CARE (09/10/2010 12:13 PM CDT) BUN POCT 27(A) 7 - 17 mg/dL [facility] Creatinine POCT 0.9 0.7 - 1.2 mg/dL [facility] QC Verified yes Yes [facility] POC T TESTING Blood specimen (specimen) BLOOD SPECIMEN / Unknown 09/10/2010 12:13 PM CDT Signed On Paper Physician LAB - POINT OF CARE ORDERABLES [facility] [address] [id number]
--- OUTSIDE RECORDS SUMMARY | 2024-02-26 21:23 | XMS_ITS | Encounter Summary ---
Author Organization [facility] Address [address] [place] [address] Care Team Providers Care Photograph Printer Name Role Phone Unavailable Primary Care Provider Unavailabl e Encounter Details Date Type Department Care Team (Latest Contact Info) Description 09/10/2010 12:01 AM CDT - 09/10/2010 11:59 PM CDT Hospital Encounter [place] [id number] [place] [address] Rene Fowler MD [address] [address] Medical Outpatient Discharge Disposition: Home or Self Care Social History Tobacco Use Types Packs/Day Years Used Date Smoking Tobacco: Never Assessed Sex and Gender Information Value Date Recorded Sex Assigned at Not on file Gender Identity Not on file Sexual Orientation Not on file documented as of this encounter Miscellaneous Notes * Miscellaneous Scans - Document, Scanned - 09/24/2010 1:24 PM CDT * Miscellaneous Scans - Document, Scanned - 09/20/2010 3:38 PM CDT documented in this encounter Plan of Treatment Not on file documented as of this encounter Procedures Procedure Name Priority Date/Time Associated Diagnosis Comments BUN+CREATININE BLOOD PNL - POINT OF CARE Routine 09/10/2010 12:13 PM CDT Malignant neoplasm of breast (female), unspecified site (HCC) Breast ca (HCC) documented in this encounter Results * (ABNORMAL) BUN+CREATININE BLOOD PNL - [...] POINT OF CARE ORDERABLES [facility] [address] [id number] documented in this encounter Visit Diagnoses Diagnosis Malignant neoplasm of breast (female), unspecified site (HCC) Malignant neoplasm of breast (female), unspecified site documented in this encounter
--- OUTSIDE RECORDS SUMMARY | 2024-02-26 21:24 | XMS_ITS | Encounter Summary ---
Author Organization [facility] Address [address] [place] [address]. [place] [address] [place] [address] Care Team Providers Care Bootmaker Name Role Phone Damon Swanson MD Unavailable [phone] Don Branham MD Primary Care Provider [phone] Reason for Referral * Imaging (Urgent) - Closed Specialty Diagnoses / Procedures Referred By Leif hilton Referred To Contact RADIOLOGY Procedures CT ABD+PEL W CON CT ABD+PEL W [place] [address] Phone: tel: [phone] fax: Referral ID Status Reason Start Date Expiration Date Visits Re quested Visits Authorized [id number] Closed 07/13/2019 08/12/2020 1 1 Reason for Visit * Auth/Cert Specialty Diagnoses / Procedures Referred By Leif hilton Referred To Contact Diagnoses Swing bed Encephalopathy Procedures SWING BED Referral ID Status Reason Start Date Expiration Date Visits Re quested Visits Authorized [id number] 1 1 Encounter Details Date Type Department Care Team (Late st Contact Info) Description 07/09/2019 6:25 PM CDT - 07/16/2019 5:09 PM CDT Hospital Encounter [facility] [address] [place] [address] Fer Garrido MD [facility] [place], [place] [id number] [phone] (Work) Ben Wood APRN [address] [place] [address] [phone] (Work) [place] [address] [phone] (Work) Discharge Disposition: Transfer to Acute Care Hospital Social History Tobacco Use Types Packs/Day [...] have Coronavirus / COVID-19? No / Unsure 07/09/2019 8:04 PM CDT documented as of this encounter Last Filed Vital Signs Vital Sign Reading Time Taken Comments Blood Pressure 130/73 07/16/2019 3:26 PM CDT Pulse 73 07/16/2019 3:26 PM CDT Temperature 36.9 ??C (98.5 ??F) 07/15/2019 7:40 PM CD T Respiratory Rate 16 07/16/2019 3:26 PM CDT Oxygen Saturation 100% 07/15/2019 7:40 PM CDT Inhaled Oxygen Concentration - - Weight 80.9 kg (178 lb 5.6 oz) 07/09/2019 9:31 P M CDT Height 157.5 cm (5' 2 ) 07/09/2019 11:33 PM CDT Body Mass Index 32.62 07/09/2019 9:31 PM CDT documented in this encounter Functional Status * Question Answer Date of Assessment Author Status Do you have serious difficulty walking or climbing stairs? Yes 07/09/2019 9:27 PM CDT Navin, Elizabe th A, NICHOLS Active * Question Answer Date of Assessment Author Status Do you have difficulty dressing or bathing? Yes 07/09/2019 9:27 PM CDT Navin, Elizab eth A, NICHOLS Active Because of a physical, mental, or emotional condition, do you have difficulty doing errands alone such as visiting a doctor's office or shopping? Yes 07/09/2019 9:27 PM CDT Navin, Elizabe th A, NICHOLS Active * RETIRED Are you deaf or do you have serious difficulty hearing Answer Date of Assessment Author Status No 07/09/2019 9:27 PM CDT Activ e * RETIRED Are you blind or do you have serious difficulty seeing, even when wearing glasses? Answer Date of Assessment Author Status No 07/09/2019 9:27 PM CDT Activ e * Do you have serious difficulty walking or climbing stairs? Answer Date of Assessment Author Status Yes 07/09/2019 9:27 PM CDT Navin, Mariia h A, NICHOLS Active * Do you have difficulty dressing or bathing? Answer Date of Assessment Author Status Yes 07/09/2019 9:27 PM CDT Navin, Mariia h A, NICHOLS Active * Because of a physical, mental, or emotional condition, do you have difficulty doing errands alone such as visiting a doctor's office or shopping? Answer Date of Assessment Author Status Yes 07/09/2019 9:27 PM CDT Navin, Mariia h A, NICHOLS Active documented as of this encounter Mental Status * Question Answer Entry Date Author Status Because of a physical, mental, or emotional condition, do you have serious difficulty concentrating, remembering, or making decisions? No 07/09/2019 9:27 PM CDT Navin, Ivelisse A, NICHOLS Active * Because of a physical, mental, or emotional condition, do you have serious difficulty concentrating, remembering, or making decisions? Answer Entry Date Author Status No 07/09/2019 9:27 PM CDT Navin, Mariia h A, NICHOLS Active documented in this encounter Discharge Summaries * Shmuel Alvarez MD - 07/16/2019 5:08 PM CDT Hospitalist Discharge Summary Patient ID: Iris Pascual. female. [id number]. [id number] Admit date: 07/09/2019 6:25 PM Discharge date: 07/16/19 Admitting Physician: Fer Garrido MD Attending Physician: Shmuel Alvarez MD Primary Care Physician: Don Branham MD Discharge Physician: SHMUEL ALVAREZ MD Primary Diagnoses: Patient Active Problem List Diagnosis ??? Ulcer of lower limb, left, limited to breakdown of skin (CMS/HCC) ??? Peripheral vascular disease (CMS/HCC) ??? Sepsis (CMS/HCC) ??? Malignant neoplasm of upper-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, estrogen receptor negative (CMS/HCC) ??? Hyperglycemia ??? Generalized weakness ??? Encephalopathy acute ??? Elevated troponin ??? Essential hypertension ??? Mixed hyperlipidemia ??? Bacteremia Discharged Condition: Stable Code Status: Full Code Indication for Admission: Bacteremia Hospital Course: 64Yy F admitted w Bacteremia 2/2 LLE cellulitis requiring 7d of cont Daptomycin. ??Patient's hospital course was complicated by diarrhea, which was C. difficile negative and found to be secondary to stool softeners and resolved after discontinuing stool softeners. Patient also had a urinary tract infection which was initially treated with ceftriaxone, but then found to be 100,000 Criselda and is currently being treated with IV Diflucan. Patient also found to have worsening left ischial decubitusulcer. Wound care consult was obtained and recommendation was made for wound to be surgically treated with incision and drainage. Patient is therefore being discharged from swing bed and readmitted to inpatient bed. Patient is scheduled for incision and drainage in a.m. ?? Polymicrobial Bacteremia MRSA, E faecalis Suspect??2/2 multiple wounds ID consulted, appreciate recs On??vanc initially, follow renal function, pharmacy to dose TTE obtained Repeat blood cx reveal 1/2 bottles with VRE, follow with ID recs Latest blood cultures??neg Now on dapto??through 07/17/19 per ID STAR d/t continued bacteremia, no evidence of endocarditis?? PICC line today July 2-patient remains on daptomycin until July 16July 3-continue daptomycin July 4-continue daptomycin until July 16July 5-last dose of daptomycin is tomorrow ?? Multiple pressure ulcers stage 2-3 POA Wound care c/s See media As above May 2-left gluteal ulcer has been covered by diarrhea, concern for ongoing infection -CT pending to evaluate for possible extension into bone concern for osteomyelitis Continue wound care treatment May 3-CT shows no evidence of osteomyelitis, continue treatment as above. Patient to follow-up withwound care as an outpatient May 4-wound care consult pending and appreciated May 5-appreciate wound care consult. Patient is now scheduled for incision and drainage of left decubitus ulcer Diarrhea May 2-patient initially had constipation, has been started on Colace and milk of magnesia. Now having diarrhea. Patient has been tested for C. difficile which was negative less than 1 week ago. Current diarrhea is mushy but not watery and does not smell like C. Difficile. -Okay to start Imodium -Fecal management system did not stay in place -CT abdomen and pelvis pending to evaluate for possible enterocolitis -Stop Colace and milk of magnesium May 3-resolving, most likely secondary to stool softeners which have been discontinued as above May 4-resolved ?? Urinary tract infection/cloudy urine May 2-concern for cross contamination due to diarrhea Urinalysis positive for UTI -Patient is already on daptomycin, will await urine culture for antibiotic selection May 3-urine culture still pending, have started ceftriaxone May 4-urine culture shows greater than 100,000 Criselda albicans Will discontinue ceftriaxone and start IV Diflucan with plan to continue IV for 2 days and then convert to oral Diflucan on discharge May 5-continue IV Diflucan as above ?? ABDIRASHID May 3-resolving, creatinine down to 1.0 from 1.5 May 4-resolved ?? PVD With nonhealing wounds to LLE Vascular consulted, appreciate recs LLE arteriogram 07/05/2019 F/u in wound clinic ?? Anemia Hgb??8.7??today, improved from yesterday Baseline appears to be near 9 Suspect 2/2 wounds, c/b component of underlying CKD Iron studies and folate WNL Check guaiac,??still pending Start PPI BID Transfuse 1u pRBC 07/02 Now improved, awaiting guaiac May 3-hemoglobin stable at 7.8, no signs of active bleeding ?? Severe Sepsis without Shock??: Resolved Patient was found to be hypothermic in the ED with temperature of 93.9F and hypotension (pressure 89/56 mmHg which improved with IVF). Vancomycin and Cefepime were initiated for broad coverage, ??Monitor Cr, vanc trough Transitioned to dapto as above Source: skin given multiple ulcers found on exam Blood cx 1/2 with MRSA and Enterococcus and MRSA, see above D/c IVF Monitor VS closely, hemodynamically stable ID consulted. Recs appreciated Repeat blood cx??NGSF Vascular surgery consulted, appreciate recs ?? Acute Metabolic Encephalopathy: resolved Due to multiple causes, including infection, hyperglycemia, ABDIRASHID, NSTEMI. CT of the Head performed in the ED revealed no acute intracranial process; stable cortical atrophy and small vessel disease with left supraorbital scalp swelling. Treat as noted above and monitor mental status. Hold off on MRI and carotid Doppler study ordered as likely metabolic encephalopathy Resolved? Elevated Troponin Initial Troponin level found to be 0.130. Trend Troponin levels. EKG revealed T-wave inversions. Cardiology consulted. Recs appreciated Echo with no WMAs Stress test as an outpatient per Cards ?? T2DM with Hyperglycemia on presentation Patient presented with glucose > 500, not in DKA. Per ER documentation, patient's insulin supply ran out. Patient given IV insulin in the ED. Lantus at HS and add SSI per protocol. D/c Lantus given recurrent hypoglycemia despite Reduced dose. ??Patient's diet obviously much more restricted here than at home. Restarted for uncontrolled BG Monitor Accu-checks both AC and HS. A1c 11.4 on 05/08/2019 Continue Lantus daily, add meal time insulin May 3-A1c 11 ?? ABDIRASHID on CKD 3: resolved Patient presented with BUN of 21 and SCr of 1.31, up from 0.92 last month. Hydration with IVF Resolved. Off IVF ? Obesity, BMI 31.21 ?? Hypothyroidism Increased levothyroxine Follow up with PCP and repeat labs in 4-6 weeks ?? ACP Full code Multiple admissions 2/2 noncompliance. SNF recommended last admission but patient and family ultimately declined. SW consulted for SNF placement. ? VTE prophylaxis: Heparin ?? GI prophylaxis: PPI ?? CODE STATUS: Full Consults: INPATIENT CONSULT TO WOUND CARE IP CONSULT TO PHARMACY - DISCHARGE AND READMIT INPATIENT CONSULT TO WOUND CARE Significant Diagnostic Studies: Recent Labs Lab 07/10/19 0540 07/13/19 0510 07/14/19 0913 07/15/19 0555 07/16/19 0320 WBC 6.3 6.8 6.9 6.0 5.9 RBC 2.72* 3.12* 2.70* 2.71* 2.58* HGB 7.8* 8.8* 7.8* 7.7* 7.3* HCT 24.9* 28.8* 24.9* 25.1* 23.6* MCV 91.5 92.3 92.2 92.6 91.5 MCH 28.7 28.2 28.9 28.4 28.3 MCHC 31.3 30.6* 31.3 30.7* 30.9* PLT 395* 427* 347 330 294 RDW 16.4* 16.7* 16.7* 16.6* 16.4* PERNEU 64.1 73.3* 70.8* 66.6 61.3 PERLYM 24.2 16.7* 19.2 19.7 22.6 PERMON 7.8 6.0 5.4 6.8 8.0 Recent Labs Lab 07/10/19 0540 07/13/19 0510 07/14/19 0913 07/15/19 0555 07/16/19 0320 NA 140 138 139 140 138 K 4.0 3.7 3.5 3.5 3.8 CL 101 98* 101 103 102 CO2 33.5* 32.6* 32.5* 31.0 30.3 AGAP 5.5 7.4 5.5 6.0 5.7 BUN 20* 28* 23* 18 15 CR 0.75 1.19* 1.05* 0.94 0.83 BUNCREATININ 26.7* 23.5 21.9 19.1 18.1 GFRNON 84* 48* 56* 64* 75* GFR >90 56* 65* 74* 86* GLU 153* 240* 141* 153* 106* CA 8.8 9.0 8.1* 8.1* 7.6* Recent Labs Lab 07/13/19 0510 HGBA1C 11.0* No results for input(s): APTT, INR, PTT in the last 168 hours. Recent Labs Lab 07/11/19 0740 CPK 74 No results for input(s): LACTICACID, PROCT in the last 168 hours. No results for input(s): PH, PCO2, PO2, [id number], BICARBWB, BASEDEFICIT, BASEEXCESS in the [id number] hours. No results found for this or any previous visit. Radiology Reports : No results found. Discharge Exam: Filed Vitals: 07/14/19199907/15/19 0733 07/15/19 19407/16/19 1526 BP: 110/56 135/70 117/63 130/73 Pulse: 84 81 87 73 Resp: 18 16 16 16 Temp: 97.8 ??F (36.6 ??C) 98.8 ??F (37.1 ??C) 98.5 ??F (36.9 ??C) TempSrc: Oral Oral Tympanic SpO2: 99% 100% Weight: Height: Please note that full PPE was worn for this encounter including eye protection, mask, gown and gloves. General: No acute distress, speaking in full sentences, no use of accessory muscles HEENT: Pupils equal and reactive to light and accommodation, oropharynx is clear Neck: Supple, no lymphadenopathy, no JVD Lungs: Clear to auscultation bilaterally Cardiovascular: Regular rate and rhythm with normal S1 and S2 Abdomen: Soft, obese, diffusely tender. Back/: 4 x 6 cm decubitus ulcer stage III on the left gluteal Extremities: Ulcers on bilateral heels are covered with bandages which are clean and dry Neuro: Nonfocal Psych: Normal affect Discharge Medications: Medication List ASK your doctor about these medications aspirin 325 MG tablet Take 1 tablet (325 mg total) by mouth daily. atorvastatin 40 MG tablet Commonly known as: LIPITOR Take 1 tablet (40 mg total) by mouth daily. chlorthalidone 25 MG tablet Commonly known as: HYGROTEN Take 1 tablet (25 mg total) by mouth daily. collagenase ointment Commonly known as: SANTYL Apply topically daily for 10 days. gabapentin 300 MG capsule Commonly known as: NEURONTIN Take 1 capsule (300 mg total) by mouth 3 (three) times daily. insulin glargine 100 UNIT/ML injection (VIAL) Commonly known as: LANTUS Inject 15 Units into the skin nightly at bedtime. levothyroxine 50 MCG tablet Commonly known as: SYNTHROID Take 1 tablet (50 mcg total) by mouth daily. pantoprazole EC 40 MG tablet Commonly known as: PROTONIX Take 1 tablet (40 mg total) by mouth daily. sodium chloride 0.9 % SOLN 100 mL with DAPTOmycin 500 MG SOLR 625 mg Inject 625 mg into the vein daily. Through 07/16 Medications Discontinued during this hospitalization: Medications Discontinued During This Encounter Medication Reason ??? famotidine (PEPCID) injection 20 mg Ordering Physician ??? famotidine (PEPCID) tablet 20 mg Ordering Physician ??? docusate sodium (COLACE) capsule 100 mg Ordering Physician ??? magnesium hydroxide (MILK OF MAGNESIA) 400 MG/5ML suspension 30 mL Ordering Physician ??? cefTRIAXone (ROCEPHIN) 1 g in sterile water 10 mL IV Ordering Physician ??? sodium chloride 0.9% infusion Ordering Physician Patient Instructions: Admit to inpatient Time Spent on Discharge greater than 30 minutes. SHMUEL ALVAREZ MD 07/16/2019 5:08 PM documented in this encounter Medications at Time of Discharge aspirin 325 MG tablet Take 1 tablet (325 mg total) by mouth daily. 180 tablet 07/10/2019 atorvastatin 40 MG tablet Take 1 tablet (40 mg total) by mouth daily. 30 tablet 07/10/2019 chlorthalidone 25 MG tablet Take 1 tablet (25 mg total) by mouth daily. 30 tablet 05/17/2019 gabapentin 300 MG capsule Take 1 capsule (300 mg total) by mouth 3 (three) times daily. 90 capsule 05/16/2019 insulin glargine 100 UNIT/ML injection (VIAL) Inject 15 Units into the skin nightly at bedtime. 1 vial 07/09/2019 levothyroxine 50 MCG tablet Take 1 tablet (50 mcg total) by mouth daily. 30 tablet 06/08/2019 pantoprazole EC 40 MG tablet Take 1 tablet (40 mg total) by mouth daily. 30 tablet 07/09/2019 collagenase ointment Apply topically daily for 10 days. 15 g 07/10/2019 0 fluconazole 200 MG tablet Take 1 tablet (200 mg total) by mouth daily for 2 days. 2 tablet 07/20/2019 0 lactobacillus Tab Take 1 tablet by mouth 2 (two) times daily for 30 days. 60 tablet 07/19/2019 0 levoFLOXacin 500 MG tablet Take 1 tablet (500 mg total) by mouth daily for 10 days. 10 tablet 07/19/2019 0 linezolid 600 MG tablet Take 1 tablet (600 mg total) by mouth 2 (two) times daily for 10 days. 20 tablet 07/19/2019 0 sodium chloride 0.9 % SOLN 100 mL with DAPTOmycin 500 MG SOLR 625 mg Inject 625 mg into the vein daily. Through 07/16 1 ampule 07/09/2019 0 documented as of this encounter Progress Notes * Jodi Asif RN - 07/16/2019 3:10 PM CDT Wound on left buttock area with foul order and large amounts of drainage. Wound care eval pending. * June Johnson PTA - 07/16/2019 1:00 PM CDT 07/16/19 1253 Therapy Visit Ordering Provider Nina PT Received On 07/16/19 Subjective Pt up in chair states she is ready to go back to bed and wants to lay on left side. Reason for admission Patient admitted to current facility for rehabilitation to home with family and IV antibiotics for healing of LLE wound. Relevant Comorbidities/ Personal Factors to PT PMH: HTN, HLD, breast CA, DM2, schizophrenia, PVD, dementia Verified Two Patient Identifiers Yes Patient consents to therapy Yes Acute Inpatient PT Time Calculation PT Start Time 1240 PT Stop Time 1252 PT Time Calculation (min) 12 min Precautions Precautions Yes/No Yes Weight Bearing Status Full weight bearing General Precautions Bed Alarm;Fall Risk Instructed on Precautions Yes;Needs reinforcement and education Skin Integrity Wounds to L posterior thigh and bottome Other Kaplan Catheter and Schizopherina Pain Pain Yes Location Pain when sitting down on bed unable to rate pain Activity Tolerance Endurance Tolerates 10 - 20 min activity with rests Cognition Overall Cognitive Status Impaired Bed Mobility Sit to Supine Max assist to right TRANSFERS Sit to Stand Mod assist;Assist of 2 Gait Gait Assistance Min assist;Mod assist;Assist of 2 Assistive Device 2 Wheeled walker Ambulation Distance (Feet) 5 feet Weight Bearing Status Total PT Assessment PT Assessment Pt back in bed mod assist of 2 to go back to bed then max assist of 2 for bed mobility. Pt laying on left side proped up by pillows and pillow between knees. Pt's wound draining and nursing aware of it along with treatment. Recommendation PT Recommendation PT during Hospitalization;PT at Residential Facility;Swing Bed Unit Plan PT Treatments/Interventions Gait Training;Therapeutic Exercises;Therapeutic Activities;Patient/family training Progress Slow progress, medical status limitations If this is the last treatment note,it will serve as the discharge summary Yes End of Session Safety End of Session Safety Call light within reach;Nursing aware of session End of Session Comment Back in bed * Shmuel Alvarez MD - 07/16/2019 11:40 AM CDT Brief progress note/update Continue IV antibiotics through tomorrow Continue IV antifungals through tomorrow, then convert to oral antifungal treatment Await wound care consult to determine if patient will require incision and drainage of left ischialdecubitus -If surgery is required, patient will be admitted as inpatient -If surgery is not required, then patient can be discharged to long-term facility for ongoingwound management as an outpatient * Renay Barba OT - 07/16/2019 11:30 AM CDT 07/16/19 1100 Therapy Visit OT Received On 07/16/19 Reason for admission Patient admitted to current facility for rehabilitation to home with family and IV antibiotics for healing of LLE wound. Ordering Provider Dr. Garrido Verified Two Patient Identifiers Ye Patient consents to therapy Yes Acute Inpatient OT Time Calculation OT Start Time 1029 OT Stop Time 1043 OT Time Calculation (min) 14 min Precautions Precautions Yes/No Yes Weight Bearing Status Full weight bearing General Precautions Bed Alarm;Fall Risk Instructed on Precautions Yes;Needs reinforcement and education Skin Integrity Wounds to L posterior thigh Other Kaplan Catheter and Schizophrenia Subjective Subjective Patient is reporting L hip pain. Patient unable to rate pain on numerical scale but doesdisplay facial grimacing and repositioning of self in chair. Pain Pain No Objective Objective Patient seated in bedside chair upon therapist arrival. Phyical therapy staff reported patient required additional assistance with sit to stand and pivot transfers this session. Activity Tolerance Endurance Tolerates 10 - 20 min activity with rests Cognition Overall Cognitive Status Impaired Interventions Other (Comment) 1# hand held weight utilized for BUE strengthening. TE completed while seated in bedside chair. Exercises included overhead shoulder flexion, forward shoulder flexion, elbow flexion, wrist flexion/extension x 10 reps x 2 sets. Additional non weighted exerrcises included scapular elev ation/depression/retraction x 15 reps x 1 set. Assessment OT Assess/Eval Other (Comment) Patient with physical decline in functional transfers this date. Shewas able to perform BUE strengthening with min verbal cues and visual demonstration.. Patient continues to benefit from skilled OT. Patient/Family Training Exercise Program proper form with TE for max benefits Recommendation OT Recommendation OT during Hospitalization;Swing Bed Unit (transfer to SNF for remainer of therapies ) Plan OT Treatment/Intervention Therapeutic exercises Progress Slow progress, medical status limitations OT Frequency 5 times/week If this is the last treatment note, it will serve as the discharge summary Yes End of Session Safety End of Session Safety Nursing aware of session;Call light within reach * June Johnson PTA - 07/16/2019 10:54 AM CDT 07/16/19 0900 Therapy Visit Ordering Provider Nina PT Received On 07/16/19 Subjective Pt in bed states not feeling the greatest but will get up. Reason for admission L LE ulcer Relevant Comorbidities/ Personal Factors to PT PMH: HTN, HLD, breast CA, DM2, schizophrenia, PVD, dementia Verified Two Patient Identifiers Yes Patient consents to therapy Yes Acute Inpatient PT Time Calculation PT Start Time 0930 PT Stop Time 1000 PT Time Calculation (min) 30 min Precautions Precautions Yes/No Yes Weight Bearing Status Full weight bearing General Precautions Bed Alarm;Fall Risk Instructed on Precautions Yes;Needs reinforcement and education Skin Integrity Wounds on bottom nursing cleaned while pt was standing. Other Kaplan Catheter and Schizophrenia Pain Pain No Activity Tolerance Endurance Tolerates 20 - 30 min activity with rests Cognition Overall Cognitive Status Impaired Bed Mobility Supine to Sit Max assist to left TRANSFERS Sit to Stand Max assist Bed to Chair Mod assist;Assist of 2 Gait Gait Assistance Mod assist;Assist of 2 Assistive Device 2 Wheeled walker Ambulation Distance (Feet) 5 feet Weight Bearing Status Total Exercises Ankle Pumps x10 Quad Sets x10 Heelslides x10 Straight Leg Raise x10 with assist Glut Sets x10 Hip Abduction supine with assist x10 Other (Comment) all ex B PT Assessment PT Assessment Pt in bed and performed there ex to B LE in supine and did require assistance with SLR, heel slides, and supine hip ABD. Pt required max assist of one with bed mobility to sit EOB and max assist of one to come to standing then sat back down on bed and waited for nursing to assist withtransfer due to patient requiring more assistance. Pt then transfered mod assist of 2 and took 5 steps with walker to chair and nursing cleaned wounds while patient was standing. Pt up in chair. Recommendation PT Recommendation PT during Hospitalization;PT at Residential Facility;Swing Bed Unit Plan PT Treatments/Interventions Gait Training;Therapeutic Exercises;Therapeutic Activities;Patient/family training Progress Slow progress, medical status limitations If this is the last treatment note,it will serve as the discharge summary Yes End of Session Safety End of Session Safety Call light within reach;Nursing aware of session End of Session Comment Pt up in chair and nursing assisted with treatment/transfer * Genesis Castellanos LCSW - 07/16/2019 10:29 AM CDT home worker contacted [facility] in [place] to inform that patient would not be ready for discharge until July 17. [facility] will provide transport . home worker to contact [facility] tomorrow and provide update and to confirm plan is for discharge. [facility] phone number is [phone] Fax number is [phone] . home worker has been speaking with [facility] customer care coordinator, phone number is [phone] . home worker will continue to follow. * Rosana Arguelles - 07/15/2019 4:27 PM CDT 07/15/19 1500 Therapy Visit Subjective Patient refused treatment. Was comfortable in bed. Would like an earlier therapy time. Reported that L hip was painful. Plan PT Treatments/Interventions Other(comment) (Continue current plan. Will attempt an earlier visit time. ) * Renay Barba, OT - 07/15/2019 1:22 PM CDT 07/15/19 1200 Therapy Visit OT Received On 07/15/19 Reason for admission Patient admitted to current facility for rehabilitation to home with family and IV antibiotics for healing of LLE wound. Ordering Provider Ben Wood APRN Verified Two Patient Identifiers Yes Patient consents to therapy Yes Acute Inpatient OT Time Calculation OT Start Time 850 OT Stop Time 922 OT Time Calculation (min) 32 min Precautions Precautions Yes/No Yes Weight Bearing Status Full weight bearing General Precautions Bed Alarm;Fall Risk Instructed on Precautions Yes;Needs reinforcement and education Skin Integrity L posterior thigh wound dressing saturated with drainage. RN removed dressing. Additional wound noted to R posterior thigh; RN was shown area of concern. Other Kaplan Catheter and Schizophrenia Subjective Subjective Patient reports she is finished with breakfast and is ready to get out of bed. Pain Pain No Objective Objective Patient watching television with head of bed elevated. Activity Tolerance Endurance Tolerates 30 min activity with rests Cognition Overall Cognitive Status Impaired ADL Grooming Assistance Stand by;Sitting in chair Grooming Deficit Setup;Supervision/safety;Increased time to complete Grooming Comment Pt washed face and hands while seated in bed; oral hygiene completed from chair. Bathing Assistance Maximal;Sitting upright in bed Bathing Deficit Setup;Supervision/safety;Increased time to complete;Perineal area;Buttocks;Right upper leg;Left upper leg;Right lower leg including foot;Left lower leg including foot Bathing Comment Pt completed UB bathing, SBA; LB bathing MAX A; perineal area supine in bed utilizing log roll method, TOTAL. UE Dressing Assistance Minimal;Sitting at EOB UE Dressing Deficit Setup;Fasteners UE Dressing Comment to don/dof hospital gown LE Dressing Assistance Total;Sitting at EOB LE Dressing Deficit Don/doff R sock;Don/doff L sock LE Dressing Comment cues for tech's/initiation/follow through; extra time; set up; steadying/safety; assist for distal reach Bed Mobility Supine to Sit Mod assist to left Functional Transfers Sit to Stand Contact guard assist (with ww ) Bed to Chair Contact guard assist (with ww) Assessment OT Assess/Eval Other (Comment) Patient continues to benefit from skilled OT to increase strength and activity tolerance for ADLS, transfers and mobility. Patient requires moderate verbal cues for throughness of bathing. Patient/Family Training Transfer Training proper hand placement with transfers and walker safety Recommendation OT Recommendation OT during Hospitalization;Swing Bed Unit Plan OT Treatment/Intervention Self-care training Progress Improving as expected OT Frequency 5 times/week (mon-fri , 1-2x/day) If this is the last treatment note, it will serve as the discharge summary Yes End of Session Safety End of Session Safety Call light within reach;Nursing aware of session * Shmuel Alvarez MD - 07/15/2019 11:34 AM CDT Hospitalist Service Progress Note Subjective: Only had one bowel movement overnight, no more diarrhea Objective: Filed Vitals: 07/14/19 0500 07/14/19 1315 07/14/19 2000 07/15/19 0733 BP: 117/60 106/53 110/56 135/70 Pulse: 92 82 84 81 Resp: 14 16 18 16 Temp: 100.3 ??F (37.9 ??C) 97.9 ??F (36.6 ??C) 97.8 ??F (36.6 ??C) 98.8 ??F (37.1 ??C) TempSrc: Axillary Oral Oral Oral SpO2: 95% 100% 99% Weight: Height: Physical Exam: Please note that full PPE was worn for this encounter including eye protection, mask, gown and gloves. General: No acute distress, speaking in full sentences, no use of accessory muscles HEENT: Pupils equal and reactive to light and accommodation, oropharynx is clear Neck: Supple, no lymphadenopathy, no JVD Lungs: Clear to auscultation bilaterally Cardiovascular: Regular rate and rhythm with normal S1 and S2 Abdomen: Soft, obese, diffusely tender. Back/: 4 x 6 cm decubitus ulcer stage III on the left gluteal Extremities: Ulcers on bilateral heels are covered with bandages which are clean and dry Neuro: Nonfocal Psych: Normal affect LAB: Recent Labs Lab 07/09/1971907/10/19 0540 07/13/19 0510 07/14/19 0913 07/15/19 0555 NA 139 140 138 139 140 K 3.9 4.0 3.7 3.5 3.5 CL 100 101 98* 101 103 CO2 33.4* 33.5* 32.6* 32.5* 31.0 AGAP 5.6 5.5 7.4 5.5 6.0 BUN 15 20* 28* 23* 18 CR 0.61 0.75 1.19* 1.05* 0.94 BUNCREATININ 24.8 26.7* 23.5 21.9 19.1 GFRNON >90 84* 48* 56* 64* GFR >90 >90 56* 65* 74* GLU 83 153* 240* 141* 153* CA 8.3* 8.8 9.0 8.1* 8.1* MAGNESIUM -- -- 1.9 1.7* 2.2 Recent Labs Lab 07/09/1971907/10/19 0540 07/13/19 0510 07/14/19 0913 07/15/19 0555 WBC 6.5 6.3 6.8 6.9 6.0 RBC 3.02* 2.72* 3.12* 2.70* 2.71* HGB 8.7* 7.8* 8.8* 7.8* 7.7* HCT 27.2* 24.9* 28.8* 24.9* 25.1* MCV 90.1 91.5 92.3 92.2 92.6 MCH 28.8 28.7 28.2 28.9 28.4 MCHC 32.0 31.3 30.6* 31.3 30.7* PLT 299 395* 427* 347 330 RDW 16.5* 16.4* 16.7* 16.7* 16.6* MPV 9.5 -- -- -- -- Recent Labs Lab 07/11/19 0740 CPK 74 No results for input(s): INR, PTT in the last 168 hours. Invalid input(s): ABG Recent Labs Lab 04/30/20 0740 CPK 74 No results for input(s): PH, PCO2, PO2, [id number], BICARBWB, BASEDEFICIT, BASEEXCESS in the [id number] hours. IMAGING: Ct Cerv Spine Wo Con Result Date: 06/28/2019 Examination: CT of the cervical spine. Exam time: 1521 hours. Clinical history: Trauma. Patient fell. Comparison: None. Technique: Thin section spiral axial scans were acquired from the skull base through the T1-2 level without contrast. Sagittal and coronal reconstructions were performed from the data set. A dose lowering technique was used for this procedure, which may include, but is not limited to, dose reduction techniques, automated exposure control, the use of iterative reconstruction and ALARA/Image Gently techniques. Findings: There is no fracture or dislocation. The reconstructions confirm maintenance of vertebral body height. Mild reversal of the normal lordosis and minimal anterolisthesis at C4-5 are attributed to the presence of the collar. Alignment is otherwise satisfactory. There is disc narrowing and paravertebral osteophyte formation at C5-6, C6-7 and C7-T1. The other intervertebral discs are maintained normally in height. There is mild generalized facet arthropathy.The neural foramina and central canal appear patent. The spinal canal contents, as visualized, appear unremarkable. There is no paraspinal edema or hematoma. There is atherosclerotic calcification inthe carotid distributions bilaterally. IMPRESSION: 1. No acute traumatic injury identified. 2. Spondylosis as described. 3. Bilateral carotid atherosclerosis. Interpreted By: Xavier Costa MD, 06/28/2019 3:[address] Head Wo Con Result Date: 06/28/2019 Examination: CT of the head without contrast. Exam time: 1520 hours. Clinical history: Trauma. Patient fell. Comparison: 06/05/2019. Technique: Noncontrast axial scans from skull base to vertex. A dose lowering technique was used for this procedure, which may include, but is not limited to, dose reduction techniques, automated exposure control, the use of iterative reconstruction and ALARA/Image Gently techniques. Findings: There is prominence of the ventricles, fissures and sulci, somewhat greater than anticipated for age, compatible with mild diffuse cortical atrophy. This is unchanged. No shift of midline or mass effect is noted. Physiologic calcification in the basal ganglia is again evid ent. There is stable periventricular decreased attenuation, compatible with small vessel disease. Intracranially, no new areas of abnormal x-ray attenuation are identified. In particular, there is nomass, hemorrhage or sign of acute stroke. No extracerebral fluid collections. The skull appears intact. The mastoid air cells and visualized paranasal sinuses appear clear. There is left supraorbitalscalp swelling. IMPRESSION: 1. No acute intracranial process identified. 2. Stable cortical atrophy and small vessel disease. 3. Left supraorbital scalp swelling. Interpreted By: Xavier Costa MD, 06/28/2019 3:35 PM Use Transesophageal Echo Result Date: 07/04/2019 STAR Report Pat.Name: IRIS PASCUAL Nathan Ribeiro.ID: [id number] St.Date: 07/04/2019 Exam Time: 12:56:00 PM Study Type:TRANSESOPHAGEAL ECHO (STAR) Height: 62in Weight: 167.65lb BSA: 1.77 m2 Age: 11 1955,64Y Sex: FEMALE BP: 147/68 HR: 67 bpm Sonogrphr: Lacie Victor [facility] Pat. Stat.:Inpatient Reason for Study: Bacteremia History / Clinical: Elevated troponin Procedures: 2D, 3 Dimensional imaging with full Doppler and color interigation, Doppler, Color Flow, Transesophageal Race: B ++++++++++++++++++++++++++++++++++++ SUMMARY: ++++++++++++++++++++++++++++++++++++ The left ventricular systolic function is normal. Estimated left ventricular ejection fraction is 55-60%. Moderate concentric leftventricular hypertrophy. Wall motion appears normal in all segments. Trace aortic regurgitation. Mild mitral regurgitation. A trace of tricuspid regurgitation. No evidence of endocarditis. +++++++++++ +++++++++++++++++++++++++ FINDINGS: ++++++++++++++++++++++++++++++++++++ STAR: The patient was counseled and an informed consent was obtained. The patient was placed in a left lateral recumbent position and a plastic bite was inserted into the mouth. IV sedation was administered. The transesophageal echo probe was inserted into the posterior pharynx and the esophagus was then intubated without difficulty. Multiple views were then obtained from the upper, mid, and lower esophagus and the gastric fundus. The scope was rotated 180 degrees and the aorta was visualized. The scope was withdrawn under continuous suction. The patient tolerated the procedure well without any apparent complications. LV: The left ventricular systolic function is normal. Estimated left ventricular ejection fractionis 55-60%. Moderate concentric left ventricular hypertrophy. WM: Wall motion appears normal in all segments. RV: The right ventricle size is normal. The right ventricular function is normal. LA: Leftatrial appendage is normal. Left atrial appendage velocity is normal. The left atrium was not well v isualized in all views. RA: The right atrial size is normal. IAS: Atrial septum appears intact. ANGELA: Trivial pericardial effusion, without tamponade physiology. AO: The aorta is atherosclerotic. Other: No evidence of endocarditis. AV: The aortic valve is trileaflet. No evidence of aortic valve stenosis. Trace aortic regurgitation. No aortic valve vegetation. MV: Structurally normal mitral valve.Mild mitral regurgitation. No evidence of mitral stenosis. No mitral valve vegetation. PV: No evidence of pulmonic valve stenosis. No evidence of pulmonic regurgitation. Pulmonic valve not well visual ized. TV: A trace of tricuspid regurgitation. No evidence of tricuspid valve stenosis. No tricuspidvalve vegetation. ++++++++++++++++++++++++++++++++++++ STAR: ++++++++++++++++++++++++++++++++++++ Pre STAR BP HR Post STAR BP HR 163/70 67 100/48 62 Meds: Propofol or Diprivan administered by Anesthesia Staff, Propofol 130, Lidocain 130 Complications: None Condition: Good Signed 07/04/2019 04:33 PM Sunita Nails M.D. Xr Abd Kub Result Date: 07/08/2019 Examination: XR ABD KUB Exam time: 07/08/2019 4:35 PM Clinical history: Distention. Firmness. Comparison: Prior radiographs performed June 2016 Technique: Abdomen radiograph one view. Findings: Postoperative changes are seen in the abdomen. There is moderate stool retention in the colon especially in the proximal colon. The colon itself is redundant and mildly distended overall. There is also retained stool in the redundant distal colon. Peritoneal fat lines are partially seen. There are no abnormal calcifications except scattered pelvic phleboliths.. Osseous structures are intact. Degenerative changes at the spine. Recommend treatment for constipation and clinical follow-up. If the symptoms still persist recommend also imaging follow-up and if further needed also CT abdomen pelvis. IMPRESSION: 1) Constipation with at least moderate stool throughout the colon with redundancy and mild distention of the colon. Xr Chest Portable Result Date: 06/28/2019 Examination: Chest x-ray 1 view Exam date/time: 06/28/2019 2:16 PM Reason For Exam: Fall. Hypertension. Comparison: 06/05/2019 Findings: Exam is compromised by underinflation, supine positioning and overlying artifact. Chronic monitor wires and leads are noted. Left axillary surgical clips. Mild cardiomegaly. Aortic arch calcifications. Pulmonary vessels are grossly within normal limits for supine positioning. Minimal atelectasis. No acute airspace consolidation, pleural effusion or pneumothorax. There is a bulky calcified right paratracheal lymph node compatible with oldhealed granulomatous disease. Tiny right granuloma. =====IMPRESSION:===== 1. No acute infiltrate demonstrated. 2. Mild cardiomegaly. 3. Old healed granulomatous disease. 4. Suboptimal exam. Mri Ankle Rt Wo Con Result Date: 07/02/2019 Examination: MRI ANKLE RT WO CON Exam time: 07/02/2019 2:56 PM Clinical history: Chronic soft tissueulceration and pain right heel Comparison: None Technique: T1-weighted images were obtained axial, sagittal and coronal to the tibiotalar joint. Sagittal, coronal and axial STIR images were also obtained. No intravenous contrast. Findings: The images demonstrate normal marrow signal in the distal tibia and tibial plafond. Marrow signal in the distal tibia is normal. The talus and talar dome are unremarkable. Tiny amount of nonspecific fluid in tibiotalar and subtalar joint spaces. There is focal skin thickening and mild ulceration posterior to the posterior calcaneal tuberosity. There is no evidence of abscess. There is no evidence of calcaneal marrow signal abnormality to suggest osteomyelitis. Distal Achilles tendon appears intact. Tiny amount of nonspecific fluid in the retrocalcaneal bursa. Plantar calcaneal enthesophyte with normal appearance of the plantar fascia. Minor chronic degenerative change tibiotalar and calcaneocuboid articulations. There is some mild diffuse nonspecific edema involving the intrinsic musculature of the foot likely related to chronic diabetic myopathy. IMPRESSION: 1) Soft tissue ulceration involving the right heel with no evidence of soft tissue abscess. 2. No evidence of osteomyelitis. Use Echocardiogram W Con Result Date: 06/30/2019 Echocardiography Report Pat.Name: IRSI PASCUAL Gema.ID: [id number] St.Date: 06/30/2019 Exam Time: 12:31:00 PM Study Type:ECHO WITH CARDIAC DOPPLER COMP Height: 62in Weight: 169.65lb BSA: 1.78 m2 Age: 11 1955,64Y Sex: FEMALE BP: 156/67 HR: 79 bpm Sonogrphr: Lucía Ozuna. Stat.:Inpatient Room: 440 History / Clinical: Elevated troponin Procedures: 2D, M-mode, Doppler, Color Flow, Definity was used to enhance endocardial definition. Race: B ++++++++++++++++++++++++++++++++++++ SUMMARY: ++++++++++++++++++++++++++++++++++++ The left ventricular size is normal. The left ventricular systolic function is lower limits of normal. Estimated left ventricular ejection fraction is 50-55%.Moderate to severe concentric left ventricular hypertrophy. The left atrial size is moderately enlarged. Trivial pericardial effusion, without tamponade physiology. No significant valvular disease. ++++++++++++++++++++++++++++++++++++ FINDINGS: ++++++++++++++++++++++++++++++++++++ LV: The left ventricular size is normal. The left ventricular systolic function is lower limits of normal. Estimated left ventricular ejection fraction is 50-55%. Moderate to severe concentric left ventricular hypertrophy. Left ventricular diastolic function is abnormal. RV: The right ventricular size is normal. Right ventricular systolic function is moderately depressed. IVS: No evidence of ventricular septal defect. LA: The left atrial size is moderately enlarged. RA: Right atrial size is normal. IAS: Atrial septum appears intact. ANGELA: Trivial pericardial effusion, without tamponade physiology. AO: Aorta isnormal. PA: Estimated right atrial pressure of 5 mmHg. SVn: Inferior vena cava is normal. Inferior vena cava shows >50% collapse with respiration consistent with normal right atrial pressure. Other: Technically difficult exam due to body habitus. AV: The aortic valve is trileaflet. No evidence of aortic valve stenosis. No evidence of aortic regurgitation. MV: Trace mitral regurgitation. No evidence of mitral valve stenosis. PV: No evidence of pulmonic valve stenosis. pulmonic regurgitation. T V: A trace of tricuspid regurgitation. No evidence of tricuspid valve stenosis. ++++++++++++++++++++++++++++++++++++ MEASUREMENTS: ++++++++++++++++++++++++++++++++++++ DOPPLER LVOT LVOTpkPG 11 mmHg LVOTmnPG 5 mmHg LVOTpkVel 164 cm/s (70-110) LVOT SV 52 ml Index 29.2 ml/m2 LVOT TVI 29.1 cm Right Atrium RA Press 5 mmHg Luz's Disk 20 Pulmonary Veins PVnpkVeld 35.6 cm/s PVnVs/Vd 1.7 PVnpkVels 59.8 cm/s PVn A Dur 92 ms AV Forward Flow AV TVI 36.5 cm AV pkPG 12 mmHg AV pkVel 176 cm/s (100-170) Area (TVI) 1.41 cm2 (3-5) Index 0.792 cm2/m2 AV mnPG 7 mmHg Area (Jesus) 1.65 cm2 (3-5) MV Forward Flow MV DeTm 165 ms MV E/A 0.8 MV mnPG 2 mmHg MV pkE 64 cm/s (60-130) MV pkPG 3 mmHg MV pkA 80.5 cm/s PV Forward Flow PV pkVel 76.9 cm/s (60-90) PV AC 160 ms PV pkPG 2 mmHg Lat E' Lat e 6.19 cm/s Lat E/E' Lat E/e 10.3 Med E' Med e 5.37 cm/s Med E/E' Med E/e 11.9 Aortic Valve Aortic Valve Ar 0.79 Aortic Valve Ve 0.93 PV Antegrade Flow Acceleration Sl 454 cm/s2 Right Ventricle Right Ventricle 7.83 cm/s 2D Left Ventricle LVIDd 4.32 cm (3.6-5.2) LV ESV 48.4 ml LVIDs 3.05 cm (2.3-3.9) LV ESV 34.2 ml LngAxd 7.75 cm LVESV BP 40.7 ml LngAxd 8.3 cm LV EF 52.1 % LV EDV 101 ml LV EF 65.1 % LV EDV 98.1 ml LV EF BP 60.1 % LVEDV BP 102 ml LV SV 52.6 ml LngAxs 7.44 cm LV SV 63.9 ml LngAxs 7.34 cm LV SV BP 61.3 ml LVPW LVPWd 1.53 cm Ventricular Septum IVSd 1.39 cm Left Atrium LA VOLBP 57.1 ml Index 32.1 ml/m2 Aorta Ao Rtd 2.2 cm (zsc -1.6) LVOT LVOT 1.5 cm LVOTArea 1.77 cm2 Ratios IVS LA Biplane LAVol IBP 32.1 ml/m2 RA Single Plane Right Atrium MO 10.5 mm Right Atrium Sy 40.8 ml Right Atrium Sy 58.6 mm Right Atrium Sy 22.9 ml/m2 Right Atrium Sy 17 cm2 Right Ventricle Right Ventricle 31.9 mm Right Ventricle 24.4 mm [place] 82.7 mm MMODE TA Tricuspid Annul 12.6 mm Signed 06/30/2019 02:55 PM Kirk Seaman M.D. EKG: No results found for this visit on 07/09/19. Assessment / Plan: 64Yy F admitted w Bacteremia 2/2 LLE cellulitis requiring 7d of cont Daptomycin, to end 07/16/19. ?? Polymicrobial Bacteremia MRSA, E faecalis Suspect??2/2 multiple wounds ID consulted, appreciate recs On??vanc initially, follow renal function, pharmacy to dose TTE obtained Repeat blood cx reveal 1/2 bottles with VRE, follow with ID recs Latest blood cultures??neg Now on dapto??through 07/17/19 per ID STAR d/t continued bacteremia, no evidence of endocarditis?? PICC line today July 2-patient remains on daptomycin until July 16July 3-continue daptomycin July 4-continue daptomycin until July 16 Multiple pressure ulcers stage 2-3 POA Wound care c/s See media As above July 2-left gluteal ulcer has been covered by diarrhea, concern for ongoing infection -CT pending to evaluate for possible extension into bone concern for osteomyelitis Continue wound care treatment July 3-CT shows no evidence of osteomyelitis, continue treatment as above. [facility] July 4-wound care consult pending and appreciated Diarrhea May 2-patient initially had constipation, has been started on Colace and milk of magnesia. Now having diarrhea. Patient has been tested for C. difficile which was negative less than 1 week ago. Current diarrhea is mushy but not watery and does not smell like C. Difficile. -Okay to start Imodium -Fecal management system did not stay in place -CT abdomen and pelvis pending to evaluate for possible enterocolitis -Stop Colace and milk of magnesium May 3-resolving, most likely secondary to stool softeners which have been discontinued as above May 4-resolved Urinary tract infection/cloudy urine May 2-concern for cross contamination due to diarrhea Urinalysis positive for UTI -Patient is already on daptomycin, will await urine culture for antibiotic selection May 3-urine culture still pending, have started ceftriaxone May 4-urine culture shows greater than 100,000 Criselda albicans Will discontinue ceftriaxone and start IV Diflucan with plan to continue IV for 2 days and then convert to oral Diflucan on discharge ABDIRASHID May 3-resolving, creatinine down to 1.0 from 1.5 May 4-resolved PVD With nonhealing wounds to LLE Vascular consulted, appreciate recs LLE arteriogram 07/05/2019 F/u in wound clinic ?? Anemia Hgb??8.7??today, improved from yesterday Baseline appears to be near 9 Suspect 2/2 wounds, c/b component of underlying CKD Iron studies and folate WNL Check guaiac,??still pending Start PPI BID Transfuse 1u pRBC 07/02 Now improved, awaiting guaiac July 13-hemoglobin stable at 7.8, no signs of active bleeding ?? Severe Sepsis without Shock??: Resolved Patient was found to be hypothermic in the ED with temperature of 93.9F and hypotension (pressure 89/56 mmHg which improved with IVF). Vancomycin and Cefepime were initiated for broad coverage, ??Monitor Cr, vanc trough Transitioned to dapto as above Source: skin given multiple ulcers found on exam Blood cx 03/14 with MRSA and Enterococcus and MRSA, see above D/c IVF Monitor VS closely, hemodynamically stable ID consulted. Recs appreciated Repeat blood cx??NGSF Vascular surgery consulted, appreciate recs ?? Acute Metabolic Encephalopathy: resolved Due to multiple causes, including infection, hyperglycemia, ABDIRASHID, NSTEMI. CT of the Head performed in the ED revealed no acute intracranial process; stable cortical atrophy and small vessel disease with left supraorbital scalp swelling. Treat as noted above and monitor mental status. Hold off on MRI and carotid Doppler study ordered as likely metabolic encephalopathy Resolved? Elevated Troponin Initial Troponin level found to be 0.130. Trend Troponin levels. EKG revealed T-wave inversions. Cardiology consulted. Recs appreciated Echo with no WMAs Stress test as an outpatient per Cards ?? T2DM with Hyperglycemia on presentation Patient presented with glucose > 500, not in DKA. Per ER documentation, patient's insulin supply ran out. Patient given IV insulin in the ED. Lantus at HS and add SSI per protocol. D/c Lantus given recurrent hypoglycemia despite Reduced dose. ??Patient's diet obviously much more restricted here than at home. Restarted for uncontrolled BG Monitor Accu-checks both AC and HS. A1c 11.4 on 05/08/2019 Continue Lantus daily, add meal time insulin May 3-A1c 11 ?? ABDIRASHID on CKD 3: resolved Patient presented with BUN of 21 and SCr of 1.31, up from 0.92 last month. Hydration with IVF Resolved. Off IVF ? Obesity, BMI 31.21 ?? Hypothyroidism Increased levothyroxine Follow up with PCP and repeat labs in 4-6 weeks ?? ACP Full code Multiple admissions 2/2 noncompliance. SNF recommended last admission but patient and family ultimately declined. SW consulted for SNF placement. ? VTE prophylaxis: Heparin GI prophylaxis: PPI CODE STATUS: Full SHMUEL ALVAREZ MD 07/15/2019 11:34 AM * Candice Bhardwaj, RD - 07/15/2019 10:42 AM CDT Dietitian Nutrition Assessment Iris Evans Ankur, 1955, 64-year-old female admitted for Swing bed/Encephalopathy. ?? Nutrition Recommendations: Nutrition Diagnosis: INCREASED NUTRIENT NEEDS related to a decreased ability to consume sufficient energy as evidenced by skin breakdown to lower extremity, depleted protein stores, uncontrolled diabetes with Hgb A1c 11, and 11.4 (05/08) and 9% weight loss in past 30 days. Nutrition Intervention: MEDICAL FOOD SUPPLEMENT THERAPY using commercial product Gelatein with lunch and dinner to provide additional 40 g protein per day to promote wound healing. Nutrition Prescription: Recommend patient consume nutritional supplement during hospital stay and may benefit from diabetes education in the future if patient will be care for herself. Nutrition Monitoring and Evaluation: Patients food and beverage intake will >75% on average of meals. Patient with 100% oral intake documented since admit. Continue protein supplements BID. ? Past Medical History Past Medical History: Diagnosis Date ??? Cancer (CMS/HCC) breast ??? Diabetes mellitus (CMS/HCC) ??? Disease of thyroid gland ??? Hypertension ??? PVD (peripheral vascular disease) (CMS/HCC) ??? Schizophrenia (CMS/HCC) Referral From: Nutrition Screening Assessment: Follow-Up Reassessment Anthropometrics: Wt Readings from Last 3 Encounters: 07/09/19 80.9 kg (178 lb 5.6 oz) 07/09/19 78.2 kg (172 lb 6.4 oz) 06/07/19 88.5 kg (195 lb 1.7 oz) Ht Readings from Last 1 Encounters: 07/09/19 5' 2 (1.575 m) Body mass index is 32.62 kg/m??. BMI Assessment: Grade 1 Obesity [place] Body Weight: 110 pounds Percent [place] Body Weight: 162% Usual Body Weight: 195 pounds in May Percent Usual Body Weight: 91% x 2 months Percent Weight Loss: 9% over the past 2 months Nutrition Focused Physical Findings: not able to at present Nutrition: Current Diet Order: Diet Carb Controlled Appropriate; 60g/meal Diet Comment: Patient lives at home by herself. Patient appears to have 9% wt loss in past 30 days.Swing bed patient for 7 days ABX. Chewing/swallowing problems: No Food allergies/intolerances: none Cultural/Lutheran food preferences: none Current diet appropriate? Yes Current intake sufficient to meet nutritional needs? Unsure; however patient is consuming 100% of meals. Pain affecting PO intake? No Estimated Nutrient Needs: Calories: 8509-1911 kcal/day, based on 20 kcal/kg Protein: 91 gm/day, based on 1.25 gm/kg Labs: HGB A1C Date Value Ref Range Status 07/13/2019 11.0 (H) <5.7 % Final Nutrition Risk: High Discharge nutrition plan: Discharge needs assessed. Will provide/update discharge instructions as needed. (See Nutrition Prescription above) CANDICE BHARDWAJ RD 07/15/19, 10:43 AM * Brandy Altamirano RN - 07/15/2019 2:53 AM CDT Assess/monitor for new skin breakdown and healing of known skin impairment. Assess and treat pain as ordered. * Shmuel Alvarez MD - 07/14/2019 1:43 PM CDT Hospitalist Service Progress Note Subjective: Minimal diarrhea, denies abdominal pain Objective: Filed Vitals: 07/13/19 1255 07/13/19 1945 07/14/19 0500 07/14/19 1315 BP: 118/66 112/58 117/60 106/53 Pulse: 90 75 92 82 Resp: 20 16 14 16 Temp: 97.8 ??F (36.6 ??C) 98.7 ??F (37.1 ??C) 100.3 ??F (37.9 ??C) 97.9 ??F (36.6 ??C) TempSrc: Axillary Tympanic Axillary Oral SpO2: 99% 99% 95% 100% Weight: Height: Physical Exam: Please note that full PPE was worn for this encounter including eye protection, mask, gown and gloves. General: No acute distress, speaking in full sentences, no use of accessory muscles HEENT: Pupils equal and reactive to light and accommodation, oropharynx is clear Neck: Supple, no lymphadenopathy, no JVD Lungs: Clear to auscultation bilaterally Cardiovascular: Regular rate and rhythm with normal S1 and S2 Abdomen: Soft, obese, diffusely tender. Back/: 4 x 6 cm decubitus ulcer stage III on the left gluteal Extremities: Ulcers on bilateral heels are covered with bandages which are clean and dry Neuro: Nonfocal Psych: Normal affect LAB: Recent Labs Lab 07/08/19 0907/09/19 0720 07/10/19 0540 07/13/19 0510 07/14/19 0913 NA 135* 139 140 138 139 K 3.6 3.9 4.0 3.7 3.5 CL 98* 100 101 98* 101 CO2 31.2 33.4* 33.5* 32.6* 32.5* AGAP 5.8 5.6 5.5 7.4 5.5 BUN 18 15 20* 28* 23* CR 0.78 0.61 0.75 1.19* 1.05* BUNCREATININ 23.0 24.8 26.7* 23.5 21.9 GFRNON 80* >90 84* 48* 56* GFR >90 >90 >90 56* 65* GLU 197* 83 153* 240* 141* CA 8.2* 8.3* 8.8 9.0 8.1* MAGNESIUM -- -- -- 1.9 1.7* Recent Labs Lab 07/08/19 0926 07/09/19 0720 07/10/19 0540 07/13/19 0510 07/14/19 0913 WBC 7.7 6.5 6.3 6.8 6.9 RBC 2.75* 3.02* 2.72* 3.12* 2.70* HGB 7.9* 8.7* 7.8* 8.8* 7.8* HCT 24.9* 27.2* 24.9* 28.8* 24.9* MCV 90.5 90.1 91.5 92.3 92.2 MCH 28.7 28.8 28.7 28.2 28.9 MCHC 31.7* 32.0 31.3 30.6* 31.3 PLT 250 299 395* 427* 347 RDW 16.4* 16.5* 16.4* 16.7* 16.7* MPV 9.5 9.5 -- -- -- Recent Labs Lab 07/11/19 0740 CPK 74 No results for input(s): INR, PTT in the last 168 hours. Invalid input(s): ABG Recent Labs Lab 07/11/19 0740 CPK 74 No results for input(s): PH, PCO2, PO2, [id number], BICARBWB, BASEDEFICIT, BASEEXCESS in the ethw606 hours. IMAGING: Ct Cerv Spine Wo Con Result Date: 06/28/2019 Examination: CT of the cervical spine. Exam time: 1521 hours. Clinical history: Trauma. Patient fell. Comparison: None. Technique: Thin section spiral axial scans were acquired from the skull base through the T1-2 level without contrast. Sagittal and coronal reconstructions were performed from the data set. A dose lowering technique was used for this procedure, which may include, but is not limited to, dose reduction techniques, automated exposure control, the use of iterative reconstruction and ALARA/Image Gently techniques. Findings: There is no fracture or dislocation. The reconstructions confirm maintenance of vertebral body height. Mild reversal of the normal lordosis and minimal anterolisthesis at C4-5 are attributed to the presence of the collar. Alignment is otherwise satisfactory. There is disc narrowing and paravertebral osteophyte formation at C5-6, C6-7 and C7-T1. The other intervertebral discs are maintained normally in height. There is mild generalized facet arthropathy.The neural foramina and central canal appear patent. The spinal canal contents, as visualized, appear unremarkable. There is no paraspinal edema or hematoma. There is atherosclerotic calcification inthe carotid distributions bilaterally. IMPRESSION: 1. No acute traumatic injury identified. 2. Spondylosis as described. 3. Bilateral carotid atherosclerosis. Interpreted By: Xavier Costa MD, 06/28/2019 3:[address] Head Wo Con Result Date: 06/28/2019 Examination: CT of the head without contrast. Exam time: 1520 hours. Clinical history: Trauma. Patient fell. Comparison: 06/05/2019. Technique: Noncontrast axial scans from skull base to vertex. A dose lowering technique was used for this procedure, which may include, but is not limited to, dose reduction techniques, automated exposure control, the use of iterative reconstruction and ALARA/Image Gently techniques. Findings: There is prominence of the ventricles, fissures and sulci, somewhat greater than anticipated for age, compatible with mild diffuse cortical atrophy. This is unchanged. No shift of midline or mass effect is noted. Physiologic calcification in the basal ganglia is again evid ent. There is stable periventricular decreased attenuation, compatible with small vessel disease. Intracranially, no new areas of abnormal x-ray attenuation are identified. In particular, there is nomass, hemorrhage or sign of acute stroke. No extracerebral fluid collections. The skull appears intact. The mastoid air cells and visualized paranasal sinuses appear clear. There is left supraorbitalscalp swelling. IMPRESSION: 1. No acute intracranial process identified. 2. Stable cortical atrophy and small vessel disease. 3. Left supraorbital scalp swelling. Interpreted By: Xavier Costa MD, 06/28/2019 3:35 PM Use Transesophageal Echo Result Date: 07/04/2019 STAR Report Pat.Name: IRIS PASCUAL Nathan Ribeiro.ID: [id number] St.Date: 07/04/2019 Exam Time: 12:56:00 PM Study Type:TRANSESOPHAGEAL ECHO (STAR) Height: 62in Weight: 167.65lb BSA: 1.77 m2 Age: 11 1955,64Y Sex: FEMALE BP: 147/68 HR: 67 bpm Sonogrphr: Lacie Victor [facility] Pat. Stat.:Inpatient Reason for Study: Bacteremia History / Clinical: Elevated troponin Procedures: 2D, 3 Dimensional imagingwith full Doppler and color interigation, Doppler, Color Flow, Transesophageal Race: B ++++++++++++++++++++++++++++++++++++ SUMMARY: ++++++++++++++++++++++++++++++++++++ The left ventricular systolicfunction is normal. Estimated left ventricular ejection fraction is 55-60%. Moderate concentric left ventricular hypertrophy. Wall motion appears normal in all segments. Trace aortic regurgitation. Mild mitral regurgitation. A trace of tricuspid regurgitation. No evidence of endocarditis. ++++++++++ ++++++++++++++++++++++++++ FINDINGS: ++++++++++++++++++++++++++++++++++++ STAR: The patient was counseled and an informed consent was obtained. The patient was placed in a left lateral recumbent position and a plastic bite was inserted into the mouth. IV sedation was administered. The transesophageal echo probe was inserted into the posterior pharynx and the esophagus was then intubated without difficulty. Multiple views were then obtained from the upper, mid, and lower esophagus and the gastricfundus. The scope was rotated 180 degrees and the aorta was visualized. The scope was withdrawn under continuous suction. The patient tolerated the procedure well without any apparent complications. LV: The left ventricular systolic function is normal. Estimated left ventricular ejection fraction is 55-60%. Moderate concentric left ventricular hypertrophy. WM: Wall motion appears normal in all segments. RV: The right ventricle size is normal. The right ventricular function is normal. LA: Left atrial appendage is normal. Left atrial appendage velocity is normal. The left atrium was not well vis ualized in all views. RA: The right atrial size is normal. IAS: Atrial septum appears intact. ANGELA:Trivial pericardial effusion, without tamponade physiology. AO: The aorta is atherosclerotic. Other: No evidence of endocarditis. AV: The aortic valve is trileaflet. No evidence of aortic valve stenosis. Trace aortic regurgitation. No aortic valve vegetation. MV: Structurally normal mitral valve. Mild mitral regurgitation. No evidence of mitral stenosis. No mitral valve vegetation. PV: No evidence of pulmonic valve stenosis. No evidence of pulmonic regurgitation. Pulmonic valve not well visualized. TV: A trace of tricuspid regurgitation. No evidence of tricuspid valve stenosis. No tricuspid valve vegetation. ++++++++++++++++++++++++++++++++++++ STAR: ++++++++++++++++++++++++++++++++++++ Pre STAR BP HR Post STAR BP HR 163/70 67 100/48 62 Meds: Propofol or Diprivan administered by Anesthesia Staff, Propofol 130, Lidocain 130 Complications: None Condition: Good Signed 07/04/2019 04:33 PM Sunita Nails M.D. Xr Abd Kub Result Date: 07/08/2019 Examination: XR ABD KUB Exam time: 07/08/2019 4:35 PM Clinical history: Distention. Firmness. Comparison: Prior radiographs performed June 2016 Technique: Abdomen radiograph one view. Findings: Postoperative changes are seen in the abdomen. There is moderate stool retention in the colon especially in the proximal colon. The colon itself is redundant and mildly distended overall. There is also retained stool in the redundant distal colon. Peritoneal fat lines are partially seen. There are no abnormal calcifications except scattered pelvic phleboliths.. Osseous structures are intact. Degenerative changes at the spine. Recommend treatment for constipation and clinical follow-up. If the symptoms still persist recommend also imaging follow-up and if further needed also CT abdomen pelvis. IMPRESSION: 1) Constipation with at least moderate stool throughout the colon with redundancy and mild distention of the colon. Xr Chest Portable Result Date: 06/28/2019 Examination: Chest x-ray 1 view Exam date/time: 06/28/2019 2:16 PM Reason ForExam: Fall. Hypertension. Comparison: 06/05/2019 Findings: Exam is compromised by underinflation, supine positioning and overlying artifact. Chronic monitor wires and leads are noted. Left axillary surgical clips. Mild cardiomegaly. Aortic arch calcifications. Pulmonary vessels are grossly within normal limits for supine positioning. Minimal atelectasis. No acute airspace consolidation, pleural effusion or pneumothorax. There is a bulky calcified right paratracheal lymph node compatible with old healed granulomatous disease. Tiny right granuloma. =====IMPRESSION:===== 1. No acute infiltrate demonstrated. 2. Mild cardiomegaly. 3. Old healed granulomatous disease. 4. Suboptimal exam. Mri Ankle Rt Wo Con Result Date: 07/02/2019 Examination: MRI ANKLE RT WO CON Exam time: 07/02/2019 2:56 PM Clinical history: Chronic soft tissueulceration and pain right heel Comparison: None Technique: T1-weighted images were obtained axial, sagittal and coronal to the tibiotalar joint. Sagittal, coronal and axial STIR images were also obtained. No intravenous contrast. Findings: The images demonstrate normal marrow signal in the distal tibia and tibial plafond. Marrow signal in the distal tibia is normal. The talus and talar dome are unremarkable. Tiny amount of nonspecific fluid in tibiotalar and subtalar joint spaces. There is focal skin thickening and mild ulceration posterior to the posterior calcaneal tuberosity. There is no evidence of abscess. There is no evidence of calcaneal marrow signal abnormality to suggest osteomyelitis. Distal Achilles tendon appears intact. Tiny amount of nonspecific fluid in the retrocalcaneal bursa. Plantar calcaneal enthesophyte with normal appearance of the plantar fascia. Minor chronic degenerative change tibiotalar and calcaneocuboid articulations. There is some mild diffuse nonspecific edema involving the intrinsic musculature of the foot likely related to chronic diabetic myopathy. IMPRESSION: 1) Soft tissue ulceration involving the right heel with no evidence of soft tissue abscess. 2. No evidence of osteomyelitis. Use Echocardiogram W Con Result Date: 06/30/2019 Echocardiography Report Pat.Name: IRIS PASCUAL Gema.ID: [id number] St.Date: 06/30/2019 Exam Time: 12:31:00 PM Study Type:ECHO WITH CARDIAC DOPPLER COMP Height: 62in Weight: 169.65lb BSA: 1.78 m2DOB Age: 11 1955,64Y Sex: FEMALE BP: 156/67 HR: 79 bpm Sonogrphr: Lucía Ozuna. Stat.:Inpatient Room: 440 History / Clinical: Elevated troponin Procedures: 2D, M-mode, Doppler, Color Flow, Definity was used to enhance endocardial definition. Race: B ++++++++++++++++++++++++++++++++++++ SUMMARY: ++++++++++++++++++++++++++++++++++++ The left ventricular size is normal. The left ventricular systolic function is lower limits of normal. Estimated left ventricular ejection fraction is 50-55%.Moderate to severe concentric left ventricular hypertrophy. The left atrial size is moderately enlarged. Trivial pericardial effusion, without tamponade physiology. No significant valvular disease. ++++++++++++++++++++++++++++++++++++ FINDINGS: ++++++++++++++++++++++++++++++++++++ LV: The left ventricular size is normal. The left ventricular systolic function is lower limits of normal. Estimated left ventricular ejection fraction is 50-55%. Moderate to severe concentric left ventricular hypertrophy. Left ventricular diastolic function is abnormal. RV: The right ventricular size is normal. Right ventricular systolic function is moderately depressed. IVS: No evidence of ventricular septal defect. LA: The left atrial size is moderately enlarged. RA: Right atrial size is normal. IAS: Atrial septum appears intact. ANGELA: Trivial pericardial effusion, without tamponade physiology. AO: Aorta isnormal. PA: Estimated right atrial pressure of 5 mmHg. SVn: Inferior vena cava is normal. Inferior vena cava shows >50% collapse with respiration consistent with normal right atrial pressure. Other: Technically difficult exam due to body habitus. AV: The aortic valve is trileaflet. No evidence of aortic valve stenosis. No evidence of aortic regurgitation. MV: Trace mitral regurgitation. No evidence of mitral valve stenosis. PV: No evidence of pulmonic valve stenosis. pulmonic regurgitation. TV: A trace of tricuspid regurgitation. No evidence of tricuspid valve stenosis. ++++++++++++++++++++++++++++++++++++ MEASUREMENTS: ++++++++++++++++++++++++++++++++++++ DOPPLER LVOT LVOTpkPG 11 mmHg LVOTmnPG 5 mmHg LVOTpkVel 164 cm/s (70-110) LVOT SV 52 ml Index 29.2 ml/m2 LVOT TVI 29.1 cm Right Atrium RA Press 5 mmHg Luz's Disk 20 Pulmonary Veins PVnpkVeld 35.6 cm/s PVnVs/Vd 1.7 PVnpkVels 59.8 cm/s PVn A Dur 92 ms AV Forward Flow AV TVI 36.5 cm AV pkPG 12 mmHg AV pkVel 176 cm/s (100-170) Area (TVI) 1.41 cm2 (3-5) Index 0.792 cm2/m2 AV mnPG 7 mmHg Area (Jesus) 1.65 cm2 (3-5) MV Forward Flow MV DeTm 165 ms MV E/A 0.8 MV mnPG 2 mmHg MV pkE 64 cm/s (60-130) MV pkPG 3 mmHg MV pkA 80.5 cm/s PV Forward Flow PV pkVel 76.9 cm/s (60-90) PV AC 160 ms PV pkPG 2 mmHg Lat E' Lat e 6.19 cm/s Lat E/E' Lat E/e 10.3 Med E' Med e 5.37 cm/s Med E/E' Med E/e 11.9 Aortic Valve Aortic Valve Ar 0.79 AorticValve Ve 0.93 PV Antegrade Flow Acceleration Sl 454 cm/s2 Right Ventricle Right Ventricle 7.83 cm/s2D Left Ventricle LVIDd 4.32 cm (3.6-5.2) LV ESV 48.4 ml LVIDs 3.05 cm (2.3- 3.9) LV ESV 34.2 ml LngAxd 7.75 cm LVESV BP 40.7 ml LngAxd 8.3 cm LV EF 52.1 % LV EDV 101 ml LV EF 65.1 % LV EDV 98.1 ml LV EF BP 60.1 % LVEDV BP 102 ml LV SV 52.6 ml LngAxs 7.44 cm LV SV 63.9 ml LngAxs 7.34 cm LV SV BP 61.3 ml LVPW LVPWd 1.53 cm Ventricular Septum IVSd 1.39 cm Left Atrium LA VOLBP 57.1 ml Index 32.1 ml/m2 Aorta Ao Rtd 2.2 cm (zsc -1.6) LVOT LVOT 1.5 cm LVOTArea 1.77 cm2 Ratios IVS LA Biplane LAVol IBP 32.1 ml/m2 RA Single Plane Right Atrium MO 10.5 mm Right Atrium Sy 40.8 ml Right Atrium Sy 58.6 mm Right Atrium Sy 22.9 ml/m2 Right Atrium Sy 17 cm2 Right Ventricle Right Ventricle 31.9 mm Right Ventricle 24.4 mm [place] 82.7 mm MMODE TA Tricuspid Annul 12.6 mm Signed 06/30/2019 02:55 PM Kirk Seaman M.D. EKG: No results found for this visit on 07/09/19. Assessment / Plan: 64Yy F admitted w Bacteremia 2/2 LLE cellulitis requiring 7d of cont Daptomycin, to end 07/16/19. ?? Polymicrobial Bacteremia MRSA, E faecalis Suspect??2/2 multiple wounds ID consulted, appreciate recs On??vanc initially, follow renal function, pharmacy to dose TTE obtained Repeat blood cx reveal 1/2 bottles with VRE, follow with ID recs Latest blood cultures??neg Now on dapto??through 07/17/19 per ID STAR d/t continued bacteremia, no evidence of endocarditis?? PICC line today July 2-patient remains on daptomycin until July 16July 3-continue daptomycin Multiple pressure ulcers stage 2-3 POA Wound care c/s See media As above July 2-left gluteal ulcer has been covered by diarrhea, concern for ongoing infection -CT pending to evaluate for possible extension into bone concern for osteomyelitis Continue wound care treatment July 3-CT shows no evidence of osteomyelitis, continue treatment as above. [facility] July 2-patient initially had constipation, has been started on Colace and milk of magnesia. Now having diarrhea. Patient has been tested for C. difficile which was negative less than 1 week ago. Current diarrhea is mushy but not watery and does not smell like C. Difficile. -Okay to start Imodium -Fecal management system did not stay in place -CT abdomen and pelvis pending to evaluate for possible enterocolitis -Stop Colace and milk of magnesium May 3-resolving, most likely secondary to stool softeners which have been discontinued as above Urinary tract infection/cloudy urine May 2-concern for cross contamination due to diarrhea Urinalysis positive for UTI -Patient is already on daptomycin, will await urine culture for antibiotic selection May 3-urine culture still pending, have started ceftriaxone ABDIRASHID May 3-resolving, creatinine down to 1.0 from 1.5 ?? PVD With nonhealing wounds to E Vascular consulted, appreciate recs LLE arteriogram 07/05/2019 F/u in wound clinic ?? Anemia Hgb??8.7??today, improved from yesterday Baseline appears to be near 9 Suspect 2/2 wounds, c/b component of underlying CKD Iron studies and folate WNL Check guaiac,??still pending Start PPI BID Transfuse 1u pRBC 07/02 Now improved, awaiting guaiac May 3-hemoglobin stable at 7.8, no signs of active bleeding ?? Severe Sepsis without Shock??: Resolved Patient was found to be hypothermic in the ED with temperature of 93.9F and hypotension (pressure 89/56 mmHg which improved with IVF). Vancomycin and Cefepime were initiated for broad coverage, ??Monitor Cr, vanc trough Transitioned to dapto as above Source: skin given multiple ulcers found on exam Blood cx 03/14 with MRSA and Enterococcus and MRSA, see above D/c IVF Monitor VS closely, hemodynamically stable ID consulted. Recs appreciated Repeat blood cx??NGSF Vascular surgery consulted, appreciate recs ?? Acute Metabolic Encephalopathy: resolved Due to multiple causes, including infection, hyperglycemia, ABDIRASHID, NSTEMI. CT of the Head performed in the ED revealed no acute intracranial process; stable cortical atrophy and small vessel disease with left supraorbital scalp swelling. Treat as noted above and monitor mental status. Hold off on MRI and carotid Doppler study ordered as likely metabolic encephalopathy Resolved? Elevated Troponin Initial Troponin level found to be 0.130. Trend Troponin levels. EKG revealed T-wave inversions. Cardiology consulted. Recs appreciated Echo with no WMAs Stress test as an outpatient per Cards ?? T2DM with Hyperglycemia on presentation Patient presented with glucose > 500, not in DKA. Per ER documentation, patient's insulin supply ran out. Patient given IV insulin in the ED. Lantus at HS and add SSI per protocol. D/c Lantus given recurrent hypoglycemia despite Reduced dose. ??Patient's diet obviously much more restricted here than at home. Restarted for uncontrolled BG Monitor Accu-checks both AC and HS. A1c 11.4 on 05/08/2019 Continue Lantus daily, add meal time insulin May 3-A1c 11 ?? ABDIRASHID on CKD 3: resolved Patient presented with BUN of 21 and SCr of 1.31, up from 0.92 last month. Hydration with IVF Resolved. Off IVF ? Obesity, BMI 31.21 ?? Hypothyroidism Increased levothyroxine Follow up with PCP and repeat labs in 4-6 weeks ?? ACP Full code Multiple admissions 2/2 noncompliance. SNF recommended last admission but patient and family ultimately declined. SW consulted for SNF placement. ? VTE prophylaxis: Heparin GI prophylaxis: PPI CODE STATUS: Full SHMUEL ALVAREZ MD 07/14/2019 1:43 PM * Jaylin Veliz RN - 07/14/2019 1:35 PM CDT Problem: Discharge Planning Goal: Knowledge of discharge instructions Outcome: Progressing Note: Plan to discharge to long-term facility this coming week after completion of IV antibiotics. Problem: Pain control/comfort Goal: Promote pain control/comfort Outcome: Progressing Note: No c/o pain. Problem: Skin integrity, Impaired-wound Goal: Absence of new skin breakdown Outcome: Progressing Note: No new skin breakdown. Goal: Evidence of wound healing Outcome: Progressing Note: Open areas to left buttock/upper leg, left heel and right heel. Santyl applied to ulcer on left upper leg. Mepilex dressing applied to open areas. Repositioning q2h. Problem: Skin integrity, Impaired-pressure injury/ulcer Goal: Absence of new skin breakdown Outcome: Progressing Goal: Evidence of pressure injury/ulcer healing Outcome: Progressing Problem: Skin integrity, at risk Goal: Absence of new skin breakdown Outcome: Progressing Problem: Moisture associated skin impairment Goal: Reduce moisture exposure Outcome: Progressing Note: Kaplan catheter placed to reduce moisture. Patient incontinent of stool at times, no loose stools this shift. Goal: Evidence of wound healing Outcome: Progressing Goal: Evidence of pressure injury/ulcer healing Outcome: Progressing Goal: Absence of new skin breakdown Outcome: Progressing Problem: Infection/Colonization Infection/Isolation Goal: Absence of infection signs and symptoms Infection/Isolation Outcome: Progressing Note: Patient with low-grade temp this morning, normothermic now other VS WNL. WBC WNL. Patient receivingIV daptomycin and ceftriaxone. * Brandy Altamirano RN - 07/14/2019 12:41 AM CDT Assess for pain Monitor skin * Natalie Faye PT - 07/13/2019 10:30 AM CDT Hold physical therapy today due to patient's current status with stool incontinence per nursing. * Shmuel Alvarez MD - 07/13/2019 9:04 AM CDT Hospitalist Service Progress Note Subjective: Patient complains of diarrhea Objective: Filed Vitals: 07/12/19 0810 07/12/19 1300 07/12/19 2035 07/13/19 0545 BP: 113/62 122/64 130/66 120/60 Pulse: 76 78 80 88 Resp: 16 Temp: 98.3 ??F (36.8 ??C) 98.4 ??F (36.9 ??C) 99.3 ??F (37.4 ??C) TempSrc: Oral Oral Temporal SpO2: 97% 98% 98% Weight: Height: Physical Exam: Please note that full PPE was worn for this encounter including eye protection, mask, gown and gloves. General: No acute distress, speaking in full sentences, no use of accessory muscles HEENT: Pupils equal and reactive to light and accommodation, oropharynx is clear Neck: Supple, no lymphadenopathy, no JVD Lungs: Clear to auscultation bilaterally Cardiovascular: Regular rate and rhythm with normal S1 and S2 Abdomen: Soft, obese, diffusely tender. Back/: 4 x 6 cm decubitus ulcer stage III on the left gluteal Positive brown mushy diarrhea Extremities: Ulcers on bilateral heels are covered with bandages which are clean and dry Neuro: Nonfocal Psych: Normal affect LAB: Recent Labs Lab 07/06/19 1208 07/07/19 1048 07/08/19 0907/09/19 0720 07/10/19 0540 07/13/19 0510 NA 133* 136 135* 139 140 138 K 3.7 3.6 3.6 3.9 4.0 3.7 CL 98* 99* 98* 100 101 98* CO2 28.5 30.5 31.2 33.4* 33.5* 32.6* AGAP 6.5 6.5 5.8 5.6 5.5 7.4 BUN 15 15 18 15 20* 28* CR 0.84 0.79 0.78 0.61 0.75 1.19* BUNCREATININ 17.9 19.1 23.0 24.8 26.7* 23.5 GFRNON 73* 79* 80* >90 84* 48* GFR 85* >90 >90 >90 >90 56* GLU 251* 223* 197* 83 153* 240* CA 8.2* 8.1* 8.2* 8.3* 8.8 9.0 MAGNESIUM -- -- -- -- -- 1.9 Recent Labs Lab 07/06/19 1208 07/07/19 1048 07/08/19 0926 07/09/19 0720 07/10/19 0540 07/13/19 0510 WBC 7.2 7.4 7.7 6.5 6.3 6.8 RBC 2.93* 2.76* 2.75* 3.02* 2.72* 3.12* HGB 8.5* 8.0* 7.9* 8.7* 7.8* 8.8* HCT 26.6* 24.9* 24.9* 27.2* 24.9* 28.8* MCV 90.8 90.2 90.5 90.1 91.5 92.3 MCH 29.0 29.0 28.7 28.8 28.7 28.2 MCHC 32.0 32.1 31.7* 32.0 31.3 30.6* PLT 208 221 250 299 395* 427* RDW 17.0* 16.6* 16.4* 16.5* 16.4* 16.7* MPV 10.4 10.3 9.5 9.5 -- -- Recent Labs Lab 07/11/19 0740 CPK 74 No results for input(s): INR, PTT in the last 168 hours. Invalid input(s): ABG Recent Labs Lab 07/11/19 0740 CPK 74 No results for input(s): PH, PCO2, PO2, P2BMFKELUDXN, BICARBWB, BASEDEFICIT, BASEEXCESS in the [id number] hours. IMAGING: Ct Cerv Spine Wo Con Result Date: 06/28/2019 Examination: CT of the cervical spine. Exam time: 1521 hours. Clinical history: Trauma. Patient fell. Comparison: None. Technique: Thin section spiral axial scans were acquired from the skull base through the T1-2 level without contrast. Sagittal and coronal reconstructions were performed from the data set. A dose lowering technique was used for this procedure, which may include, but is not limited to, dose reduction techniques, automated exposure control, the use of iterative reconstruction and ALARA/Image Gently techniques. Findings: There is no fracture or dislocation. The reconstructions confirm maintenance of vertebral body height. Mild reversal of the normal lordosis and minimal anterolisthesis at C4-5 are attributed to the presence of the collar. Alignment is otherwise satisfactory. There is disc narrowing and paravertebral osteophyte formation at C5-6, C6-7 and C7-T1. The other intervertebral discs are maintained normally in height. There is mild generalized facet arthropathy.The neural foramina and central canal appear patent. The spinal canal contents, as visualized, appear unremarkable. There is no paraspinal edema or hematoma. There is atherosclerotic calcification inthe carotid distributions bilaterally. IMPRESSION: 1. No acute traumatic injury identified. 2. Spondylosis as described. 3. Bilateral carotid atherosclerosis. Interpreted By: Xavier Costa MD, 06/28/2019 3:[address] Head Wo Con Result Date: 06/28/2019 Examination: CT of the head without contrast. Exam time: 1520 hours. Clinical history: Trauma. Patient fell. Comparison: 06/05/2019. Technique: Noncontrast axial scans from skull base to vertex. A dose lowering technique was used for this procedure, which may include, but is not limited to, dose reduction techniques, automated exposure control, the use of iterative reconstruction and ALARA/Image Gently techniques. Findings: There is prominence of the ventricles, fissures and sulci, somewhat greater than anticipated for age, compatible with mild diffuse cortical atrophy. This is unchanged. No shift of midline or mass effect is noted. Physiologic calcification in the basal ganglia is again evid ent. There is stable periventricular decreased attenuation, compatible with small vessel disease. Intracranially, no new areas of abnormal x-ray attenuation are identified. In particular, there is nomass, hemorrhage or sign of acute stroke. No extracerebral fluid collections. The skull appears intact. The mastoid air cells and visualized paranasal sinuses appear clear. There is left supraorbitalscalp swelling. IMPRESSION: 1. No acute intracranial process identified. 2. Stable cortical atrophy and small vessel disease. 3. Left supraorbital scalp swelling. Interpreted By: Xavier Costa MD, 06/28/2019 3:35 PM Use Transesophageal Echo Result Date: 07/04/2019 STAR Report Pat.Name: IRIS PASCUAL Gema.ID: [id number] .Date: 07/04/2019 Exam Time: 12:56:00 PM Study Type:TRANSESOPHAGEAL ECHO (STAR) Height: 62in Weight: 167.65lb BSA: 1.77 m2 Age: 11 1955,64Y Sex: FEMALE BP: 147/68 HR: 67 bpm Sonogrphr: Lacie Victor [facility] Pat. Stat.:Inpatient Reason for Study: Bacteremia History / Clinical: Elevated troponin Procedures: 2D, 3 Dimensional imagingwith full Doppler and color interigation, Doppler, Color Flow, Transesophageal Race: B ++++++++++++++++++++++++++++++++++++ SUMMARY: ++++++++++++++++++++++++++++++++++++ The left ventricular systolicfunction is normal. Estimated left ventricular ejection fraction is 55-60%. Moderate concentric left ventricular hypertrophy. Wall motion appears normal in all segments. Trace aortic regurgitation. Mild mitral regurgitation. A trace of tricuspid regurgitation. No evidence of endocarditis. ++++++++++ ++++++++++++++++++++++++++ FINDINGS: ++++++++++++++++++++++++++++++++++++ STAR: The patient was counseled and an informed consent was obtained. The patient was placed in a left lateral recumbent position and a plastic bite was inserted into the mouth. IV sedation was administered. The transesophageal echo probe was inserted into the posterior pharynx and the esophagus was then intubated without difficulty. Multiple views were then obtained from the upper, mid, and lower esophagus and the gastricfundus. The scope was rotated 180 degrees and the aorta was visualized. The scope was withdrawn under continuous suction. The patient tolerated the procedure well without any apparent complications. LV: The left ventricular systolic function is normal. Estimated left ventricular ejection fraction is 55-60%. Moderate concentric left ventricular hypertrophy. WM: Wall motion appears normal in all segments. RV: The right ventricle size is normal. The right ventricular function is normal. LA: Left atrial appendage is normal. Left atrial appendage velocity is normal. The left atrium was not well vi sualized in all views. RA: The right atrial size is normal. IAS: Atrial septum appears intact. ANGELA: Trivial pericardial effusion, without tamponade physiology. AO: The aorta is atherosclerotic. Other: No evidence of endocarditis. AV: The aortic valve is trileaflet. No evidence of aortic valve stenosis. Trace aortic regurgitation. No aortic valve vegetation. MV: Structurally normal mitral valve.Mild mitral regurgitation. No evidence of mitral stenosis. No mitral valve vegetation. PV: No evidence of pulmonic valve stenosis. No evidence of pulmonic regurgitation. Pulmonic valve not well visual ized. TV: A trace of tricuspid regurgitation. No evidence of tricuspid valve stenosis. No tricuspidvalve vegetation. ++++++++++++++++++++++++++++++++++++ STAR: ++++++++++++++++++++++++++++++++++++ Pre STAR BP HR Post STAR BP HR 163/70 67 100/48 62 Meds: Propofol or Diprivan administered by Anesthesia Staff, Propofol 130, Lidocain 130 Complications: None Condition: Good Signed 07/04/2019 04:33 PM Sunita Nails M.D. Xr Abd Kub Result Date: 07/08/2019 Examination: XR ABD KUB Exam time: 07/08/2019 4:35 PM Clinical history: Distention. Firmness. Comparison: Prior radiographs performed June 2016 Technique: Abdomen radiograph one view. Findings: Postoperative changes are seen in the abdomen. There is moderate stool retention in the colon especially in the proximal colon. The colon itself is redundant and mildly distended overall. There is also retained stool in the redundant distal colon. Peritoneal fat lines are partially seen. There are no abnormal calcifications except scattered pelvic phleboliths.. Osseous structures are intact. Degenerative changes at the spine. Recommend treatment for constipation and clinical follow-up. If the symptoms still persist recommend also imaging follow-up and if further needed also CT abdomen pelvis. IMPRESSION: 1) Constipation with at least moderate stool throughout the colon with redundancy and mild distention of the colon. Xr Chest Portable Result Date: 06/28/2019 Examination: Chest x-ray 1 view Exam date/time: 06/28/2019 2:16 PM Reason For Exam: Fall. Hypertension. Comparison: 06/05/2019 Findings: Exam is compromised by underinflation, supine positioning and overlying artifact. Chronic monitor wires and leads are noted. Left axillary surgical clips. Mild cardiomegaly. Aortic arch calcifications. Pulmonary vessels are grossly within normal limits for supine positioning. Minimal atelectasis. No acute airspace consolidation, pleural effusion or pneumothorax. There is a bulky calcified right paratracheal lymph node compatible with oldhealed granulomatous disease. Tiny right granuloma. =====IMPRESSION:===== 1. No acute infiltrate demonstrated. 2. Mild cardiomegaly. 3. Old healed granulomatous disease. 4. Suboptimal exam. Mri Ankle Rt Wo Con Result Date: 07/02/2019 Examination: MRI ANKLE RT WO CON Exam time: 07/02/2019 2:56 PM Clinical history: Chronic soft tissueulceration and pain right heel Comparison: None Technique: T1-weighted images were obtained axial, sagittal and coronal to the tibiotalar joint. Sagittal, coronal and axial STIR images were also obtained. No intravenous contrast. Findings: The images demonstrate normal marrow signal in the distal tibia and tibial plafond. Marrow signal in the distal tibia is normal. The talus and talar dome are unremarkable. Tiny amount of nonspecific fluid in tibiotalar and subtalar joint spaces. There is focal skin thickening and mild ulceration posterior to the posterior calcaneal tuberosity. There is no evidence of abscess. There is no evidence of calcaneal marrow signal abnormality to suggest osteomyelitis. Distal Achilles tendon appears intact. Tiny amount of nonspecific fluid in the retrocalcaneal bursa. Plantar calcaneal enthesophyte with normal appearance of the plantar fascia. Minor chronic degenerative change tibiotalar and calcaneocuboid articulations. There is some mild diffuse nonspecific edema involving the intrinsic musculature of the foot likely related to chronic diabetic myopathy. IMPRESSION: 1) Soft tissue ulceration involving the right heel with no evidence of soft tissue abscess. 2. No evidence of osteomyelitis. Use Echocardiogram W Con Result Date: 06/30/2019 Echocardiography Report Pat.Name: IRIS PASCUAL Gema.ID: [id number] St.Date: 06/30/2019 Exam Time: 12:31:00 PM Study Type:ECHO WITH CARDIAC DOPPLER COMP Height: 62in Weight: 169.65lb BSA: 1.78 m2DOB Age: 11 1955,64Y Sex: FEMALE BP: 156/67 HR: 79 bpm Sonogrphr: Lucía Ozuna. Stat.:Inpatient Room: 440 History / Clinical: Elevated troponin Procedures: 2D, M-mode, Doppler, Color Flow, Definity was used to enhance endocardial definition. Race: B ++++++++++++++++++++++++++++++++++++ SUMMARY: ++++++++++++++++++++++++++++++++++++ The left ventricular size is normal. The left ventricularsystolic function is lower limits of normal. Estimated left ventricular ejection fraction is 50-55%. Moderate to severe concentric left ventricular hypertrophy. The left atrial size is moderately enlarged. Trivial pericardial effusion, without tamponade physiology. No significant valvular disease. ++++++++++++++++++++++++++++++++++++ FINDINGS: ++++++++++++++++++++++++++++++++++++ LV: The left ventricular size is normal. The left ventricular systolic function is lower limits of normal. Estimatedleft ventricular ejection fraction is 50-55%. Moderate to severe concentric left ventricular hypertrophy. Left ventricular diastolic function is abnormal. RV: The right ventricular size is normal. Right ventricular systolic function is moderately depressed. IVS: No evidence of ventricular septal defect. LA: The left atrial size is moderately enlarged. RA: Right atrial size is normal. IAS: Atrialseptum appears intact. ANGELA: Trivial pericardial effusion, without tamponade physiology. AO: Aorta is normal. PA: Estimated right atrial pressure of 5 mmHg. SVn: Inferior vena cava is normal. Inferior vena cava shows >50% collapse with respiration consistent with normal right atrial pressure. Other: Technically difficult exam due to body habitus. AV: The aortic valve is trileaflet. No evidence of aortic valve stenosis. No evidence of aortic regurgitation. MV: Trace mitral regurgitation. No evidence of mitral valve stenosis. PV: No evidence of pulmonic valve stenosis. pulmonic regurgitation. TV: A trace of tricuspid regurgitation. No evidence of tricuspid valve stenosis. ++++++++++++++++++++++++++++++++++++ MEASUREMENTS: ++++++++++++++++++++++++++++++++++++ DOPPLER LVOT LVOTpkPG 11 mmHg LVOTmnPG 5 mmHg LVOTpkVel 164 cm/s (70-110) LVOT SV 52 ml Index 29.2 ml/m2 LVOT TVI 29.1 cm Right Atrium RA Press 5 mmHg Luz's Disk 20 Pulmonary Veins PVnpkVeld 35.6 cm/s PVnVs/Vd 1.7 PVnpkVels 59.8 cm/s PVn A Dur 92 ms AV Forward Flow AV TVI 36.5 cm AV pkPG 12 mmHg AV pkVel 176 cm/s (100-170)Area (TVI) 1.41 cm2 (3-5) Index 0.792 cm2/m2 AV mnPG 7 mmHg Area (Jesus) 1.65 cm2 (3-5) MV Forward Flow MV DeTm 165 ms MV E/A 0.8 MV mnPG 2 mmHg MV pkE 64 cm/s (60-130) MV pkPG 3 mmHg MV pkA 80.5 cm/s PV Forward Flow PV pkVel 76.9 cm/s (60-90) PV AC 160 ms PV pkPG 2 mmHg Lat E' Lat e 6.19 cm/s Lat E/E' Lat E/e 10.3 Med E' Med e 5.37 cm/s Med E/E' Med E/e 11.9 Aortic Valve Aortic Valve Ar 0.79 Aortic Valve Ve 0.93 PV Antegrade Flow Acceleration Sl 454 cm/s2 Right Ventricle Right Ventricle 7.83 cm /s 2D Left Ventricle LVIDd 4.32 cm (3.6-5.2) LV ESV 48.4 ml LVIDs 3.05 cm (2.3- 3.9) LV ESV 34.2 mlLngAxd 7.75 cm LVESV BP 40.7 ml LngAxd 8.3 cm LV EF 52.1 % LV EDV 101 ml LV EF 65.1 % LV EDV 98.1 ml LV EF BP 60.1 % LVEDV BP 102 ml LV SV 52.6 ml LngAxs 7.44 cm LV SV 63.9 ml LngAxs 7.34 cm LV SV BP61.3 ml LVPW LVPWd 1.53 cm Ventricular Septum IVSd 1.39 cm Left Atrium LA VOLBP 57.1 ml Index 32.1 ml/m2 Aorta Ao Rtd 2.2 cm (zsc -1.6) LVOT LVOT 1.5 cm LVOTArea 1.77 cm2 Ratios IVS LA Biplane LAVolI BP 32.1 ml/m2 RA Single Plane Right Atrium MO 10.5 mm Right Atrium Sy 40.8 ml Right Atrium Sy 58.6 mm Right Atrium Sy 22.9 ml/m2 Right Atrium Sy 17 cm2 Right Ventricle Right Ventricle 31.9 mm RightVentricle 24.4 mm [place] 82.7 mm MMODE TA Tricuspid Annul 12.6 mm Signed 06/30/2019 02:55 PM Kirk Seaman M.D. EKG: No results found for this visit on 07/09/19. Assessment / Plan: 64Yy F admitted w Bacteremia 2/2 LLE cellulitis requiring 7d of cont Daptomycin, to end 07/16/19. ?? Polymicrobial Bacteremia MRSA, E faecalis Suspect??2/2 multiple wounds ID consulted, appreciate recs On??vanc initially, follow renal function, pharmacy to dose TTE obtained Repeat blood cx reveal 1/2 bottles with VRE, follow with ID recs Latest blood cultures??neg Now on dapto??through 07/17/19 per ID STAR d/t continued bacteremia, no evidence of endocarditis?? PICC line today July 2-patient remains on daptomycin until July 16 Multiple pressure ulcers stage 2-3 POA Wound care c/s See media As above May 2-left gluteal ulcer has been covered by diarrhea, concern for ongoing infection -CT pending to evaluate for possible extension into bone concern for osteomyelitis Continue wound care treatment Diarrhea May 2-patient initially had constipation, has been started on Colace and milk of magnesia. Now having diarrhea. Patient has been tested for C. difficile which was negative less than 1 week ago. Current diarrhea is mushy but not watery and does not smell like C. Difficile. -Okay to start Imodium -Fecal management system did not stay in place -CT abdomen and pelvis pending to evaluate for possible enterocolitis -Stop Colace and milk of magnesium Urinary tract infection/cloudy urine May 2-concern for cross contamination due to diarrhea Urinalysis positive for UTI -Patient is already on daptomycin, will await urine culture for antibiotic selection ?? PVD With nonhealing wounds to LLE Vascular consulted, appreciate recs LLE arteriogram 07/05/2019 F/u in wound clinic ?? Anemia Hgb??8.7??today, improved from yesterday Baseline appears to be near 9 Suspect 2/2 wounds, c/b component of underlying CKD Iron studies and folate WNL Check guaiac,??still pending Start PPI BID Transfuse 1u pRBC 07/02 Now improved, awaiting guaiac ?? Severe Sepsis without Shock??: Resolved Patient was found to be hypothermic in the ED with temperature of 93.9F and hypotension (pressure 89/56 mmHg which improved with IVF). Vancomycin and Cefepime were initiated for broad coverage, ??Monitor Cr, vanc trough Transitioned to dapto as above Source: skin given multiple ulcers found on exam Blood cx 03/14 with MRSA and Enterococcus and MRSA, see above D/c IVF Monitor VS closely, hemodynamically stable ID consulted. Recs appreciated Repeat blood cx??NGSF Vascular surgery consulted, appreciate recs ?? Acute Metabolic Encephalopathy: resolved Due to multiple causes, including infection, hyperglycemia, ABDIRASHID, NSTEMI. CT of the Head performed in the ED revealed no acute intracranial process; stable cortical atrophy and small vessel disease with left supraorbital scalp swelling. Treat as noted above and monitor mental status. Hold off on MRI and carotid Doppler study ordered as likely metabolic encephalopathy Resolved? Elevated Troponin Initial Troponin level found to be 0.130. Trend Troponin levels. EKG revealed T-wave inversions. Cardiology consulted. Recs appreciated Echo with no WMAs Stress test as an outpatient per Cards ?? T2DM with Hyperglycemia on presentation Patient presented with glucose > 500, not in DKA. Per ER documentation, patient's insulin supply ran out. Patient given IV insulin in the ED. Lantus at HS and add SSI per protocol. D/c Lantus given recurrent hypoglycemia despite Reduced dose. ??Patient's diet obviously much more restricted here than at home. Restarted for uncontrolled BG Monitor Accu-checks both AC and HS. A1c 11.4 on 05/08/2019 Continue Lantus daily, add meal time insulin ?? ABDIRASHID on CKD 3: resolved Patient presented with BUN of 21 and SCr of 1.31, up from 0.92 last month. Hydration with IVF Resolved. Off IVF ? Obesity, BMI 31.21 ?? Hypothyroidism Increased levothyroxine Follow up with PCP and repeat labs in 4-6 weeks ?? ACP Full code Multiple admissions 2/2 noncompliance. SNF recommended last admission but patient and family ultimately declined. SW consulted for SNF placement. ? VTE prophylaxis: Heparin GI prophylaxis: PPI CODE STATUS: Full SHMUEL ALVAREZ MD 07/13/2019 9:04 AM * Irene Patel PTA - 07/12/2019 4:58 PM CDT Problem: Balance Goal: STG - Pt to demonstrate dynamic standing balance Description To allow ADL's at sink for 3 minutes. Outcome: Progressing Problem: Mobility Goal: STG - Pt will ambulate Description With least restrictive assistive device x 150' to return home. Outcome: Progressing Goal: STG - Pt will ascend/descend stairs Description 4-5 steps with B handrail with CGA to return home. Outcome: Progressing Problem: Transfers Goal: STG - Pt will perform sit to stand Description With SBA to increased independence. Outcome: Progressing * Irene Patel PTA - 07/12/2019 4:54 PM CDT 07/12/19 1500 Therapy Visit Ordering Provider Nina TORRES Received On 07/11/19 Treatment Day 3 Subjective Patient up in chair and is willing to walk and do exercises, but not to do stairs because she was too worn out after that. Reason for admission L LE ulcer Relevant Co morbidities/ Personal Factors to PT PMH: HTN, HLD, breast CA, DM2, schizophrenia, PVD, dementia Verified Two Patient Identifiers Yes Patient consents to therapy Yes Acute Inpatient PT Time Calculation PT Start Time 1332 PT Stop Time 1354 PT Time Calculation (min) 22 min Precautions Precautions Yes/No Yes Weight Bearing Status Full weight bearing General Precautions Bed Alarm;Fall Risk Instructed on Precautions Yes;Needs reinforcement and education Other Kaplan Catheter and Schizophrenia Activity Tolerance Endurance Tolerates 30 min activity with rests Activity Tolerance Comments No treatment this morning Cognition Overall Cognitive Status Impaired Other (Comment) Patient perseverates at times randomly about things not pertaining to present moment. TRANSFERS Sit to Stand Min assist;Contact guard assist Gait Gait Assistance Contact guard assist Assistive Device Standard walker Ambulation Distance (Feet) 45 feet Pattern Shuffle steps Stairs Stair Management Assistance Contact guard assist Stair Management Technique Two rails;With gait belt Number of Stairs 2 Other (Comment) No stairs this afternoon Balance Sitting - Static Independent Sitting - Dynamic SBA Standing - Static Support of both upper extremities;CGA Standing - Dynamic Support of both upper extremities;CGA Exercises Ankle Pumps 20 Sitting LE Exercise LAQ 10 reps, marching 10x, pillow squeezes 10x PT Assessment PT Assessment Patient ambulated into hallway and back to her chair. Performed a few exercises in chair. Modified [place] Score Score 0-6 2 Slight disability, unable to carry out all previous activities, but able to look after own affairs without assistance Recommendation PT Recommendation Swing Bed Unit;Home PT PT Equipment Recommended Standard walker (Patient states that she has a standard walker at home.) Barriers to Community Discharge Cognition;Lack of caregiver;Safety Plan PT Treatments/Interventions Gait Training;Therapeutic Exercises;Therapeutic Activities;Neuromuscular re-education;Patient/family training Progress Improving as expected PT Frequency Daily;BID;3 times/week;6 times/week PT - Next Appointment 07/13/19 End of Session Safety End of Session Safety Call light within reach End of Session Comment Patient seated in chair. * Jaylin Veliz RN - 07/12/2019 2:10 PM CDT Problem: Discharge Planning Goal: Knowledge of discharge instructions Outcome: Progressing Problem: Pain control/comfort Goal: Promote pain control/comfort Outcome: Progressing Note: Some c/o pain to right leg. Tolerable with Tylenol. Problem: Skin integrity, Impaired-wound Goal: Absence of new skin breakdown Outcome: Progressing Goal: Evidence of wound healing Outcome: Progressing Problem: Skin integrity, Impaired-pressure injury/ulcer Goal: Absence of new skin breakdown Outcome: Progressing Goal: Evidence of pressure injury/ulcer healing Outcome: Progressing Note: Large ulcer to left buttock/upper leg, ulcer to right heel and left lower calf. Santyl applied to ulcer on left buttock. Foam-boarder adhesive applied to all open areas, heels elevated. Problem: Skin integrity, at risk Goal: Absence of new skin breakdown Outcome: Progressing Problem: Moisture associated skin impairment Goal: Reduce moisture exposure Outcome: Progressing Goal: Evidence of wound healing Outcome: Progressing Goal: Evidence of pressure injury/ulcer healing Outcome: Progressing Goal: Absence of new skin breakdown Outcome: Progressing Problem: Infection/Colonization Infection/Isolation Goal: Absence of infection signs and symptoms Infection/Isolation Outcome: Progressing * ONIEL Rutledge - 07/12/2019 12:09 PM CDT 07/12/19 0847 Therapy Visit OT Received On 07/12/19 Reason for admission L LE ulcer Ordering Provider Nina Verified Two Patient Identifiers Yes Patient consents to therapy Yes Acute Inpatient OT Time Calculation OT Start Time 0847 OT Stop Time 0931 OT Time Calculation (min) 44 min Precautions Precautions Yes/No Yes Weight Bearing Status Full weight bearing General Precautions Bed Alarm;Fall Risk Instructed on Precautions Yes;Needs reinforcement and education Other Kaplan Catheter and Schizophrenia Subjective Subjective Pt presented in bed, HOB elevated; willing to particpate in ADL tx. Pain Pain No Activity Tolerance Endurance Tolerates 60 min activity with rests Activity Tolerance Comments Pt demos good activity tolerance for seated ADL tx. Cognition Overall Cognitive Status Impaired ADL Grooming Assistance Stand by;Sitting in chair;Sitting upright in bed Grooming Deficit Setup;Supervision/safety;Increased time to complete Grooming Comment Pt washed face and hands while seated in bed; oral hygiene completed from chair. Bathing Assistance Maximal;Sitting upright in bed Bathing Deficit Setup;Supervision/safety;Increased time to complete;Perineal area;Buttocks;Right upper leg;Left upper leg;Right lower leg including foot;Left lower leg including foot Bathing Comment Pt completed UB bathing, SBA; LB bathing MAX A; perineal area supine in bed utilizing log roll method, TOTAL. UE Dressing Assistance Maximal;Sitting upright in bed UE Dressing Deficit Setup;Fasteners UE Dressing Comment to don/[facility] LE Dressing Assistance Total;In bed LE Dressing Deficit Don/doff R sock;Don/doff L sock Bed Mobility Rolling Min assist to right (use of guard rails) Supine to Sit Mod assist to left (pt demos need for assist w/BLE to EOB, raising trunk off bed) Functional Transfers Sit to Stand Min assist;Contact guard assist (from EOB w/ww) Bed to Chair Contact guard assist (vc for hand placement) Functional Mobility CGA w/ww EOB to bedside chair Balance Sitting - Static Independent Sitting - Dynamic Independent Standing - Static CGA;Support of both upper extremities Standing - Dynamic CGA;Min Assist;Support of both upper extremities Patient/Family Training Self Cares x Transfer Training vc for hand placement for optimal safety, sit to stand from EOB and stand to sit in chair. OT Assessment OT Assessment Pt cooperative and motivated to compelete tx; limited by cognition and medical status(wound healing); will continue to progress with skilled OT. Plan OT Treatment/Intervention Self-care training;Therapeutic exercises;Therapeutic activities;Patient/family training;Functional activity;Safety Progress Progressing toward goals If this is the last treatment note, it will serve as the discharge summary Yes End of Session Safety End of Session Safety Call light within reach End of Session Comment Pt seated in bedside chair w/call light and all necessities within reach upon therapist exit. * Genesis Castellanos LCSW - 07/12/2019 11:20 AM CDT home worker met with patient to offer 1:1 psychosocial support. Patient is pleasant and participates in visit. Patient does not offer much in conversation, states she is okay and needs are met. Patient continues to receive IV antibiotic and PT and OT services. Discharge plan is to transfer to [facility] in [place] on Monday or Monday next week July 15 or . [facility] to provide transport. home worker did speak with patient's daughter Celina who informs this is families first choice andpreference family cannot meet patient's needs at this time . home worker will follow. * Natalie Faye PT - 07/11/2019 1:59 PM CDT 07/11/19 1349 Therapy Visit Ordering Provider Nina PT Received On 07/11/19 Treatment Day 2 Subjective Patient seated in chair upon arrival to room. States that she just finished lunch and isready to work. Reason for admission L LE ulcer Relevant Comorbidities/ Personal Factors to PT PMH: HTN, HLD, breast CA, DM2, schizophrenia, PVD, dementia Verified Two Patient Identifiers Yes Patient consents to therapy Yes Acute Inpatient PT Time Calculation PT Start Time 1301 PT Stop Time 1342 PT Time Calculation (min) 41 min Precautions Precautions Yes/No Yes Weight Bearing Status Full weight bearing General Precautions Bed Alarm;Fall Risk Instructed on Precautions Yes;Needs reinforcement and education Other Kaplan Catheter and Schizophrenia Activity Tolerance Endurance Tolerates 30 min activity with rests Cognition Overall Cognitive Status Impaired Other (Comment) Patient perseverates at times randomly about things not pertaining to present moment. TRANSFERS Sit to Stand Min assist;Contact guard assist Gait Gait Assistance Contact guard assist Assistive Device Standard walker Ambulation Distance (Feet) 45 feet Pattern Shuffle steps Other (Comment) Occasional difficulty with lifting walker. Stairs Stair Management Assistance Contact guard assist Stair Management Technique Two rails;With gait belt Number of Stairs 2 Other (Comment) Verbal cues and encouragement required for safety & achievement. Balance Sitting - Static Independent Sitting - Dynamic SBA Standing - Static Support of both upper extremities;CGA Standing - Dynamic Support of both upper extremities;CGA Patient/Family Training Gait Training Use of a standard walker for increased stability and safety. Stair Climbing Proper procedure. Precautions Skin integrity and pressure reliefs to improve healing. PT Assessment PT Assessment Patient was able to perform improved independence with transfers & distance with ambulation. She also completed the steps without physical assist. Modified Merced Score Score 0-6 2 Slight disability, unable to carry out all previous activities, but able to look after own affairs without assistance Recommendation PT Recommendation Swing Bed Unit;Home PT PT Equipment Recommended 4 Wheeled walker;Standard walker (Patient states that she has a standard walker at home.) Barriers to Community Discharge Cognition;Lack of caregiver;Safety Plan PT Treatments/Interventions Gait Training;Therapeutic Exercises;Therapeutic Activities;Neuromuscular re-education;Patient/family training Progress Improving as expected PT Frequency Daily;BID;3 times/week;6 times/week PT plan for next session Ther Ex for B LE & increasing ambulation speed and distance. PT - Next Appointment 07/12/19 If this is the last treatment note,it will serve as the discharge summary Yes End of Session Safety End of Session Safety Call light within reach End of Session Comment Patient seated in chair upon completion of treatment. * Renay Barba, YVONNE - 07/11/2019 1:45 PM CDT Problem: Bathing Goal: STG - Pt will bathe body from a seated position with Description Setup for UB and mod A for LB with use of wheeled walker for standing components. Outcome: Progressing Problem: Grooming Goal: STG - Pt will complete grooming while standing sink/tableside with Description CGA facilitated by wheeled walker. Outcome: Progressing Problem: Toileting Goal: STG - Pt will complete 3/3 toilet tasks (clothing up, clothing down, hygiene) with Description Wheeled walker with min A and good safety. Outcome: Progressing Problem: Transfers Goal: STG - Pt will perform a toilet transfer with Description CGA consistently with wheeled walker. Outcome: Progressing * Renay Barba, YVONNE - 07/11/2019 1:43 PM CDT 07/11/19 1300 Therapy Visit OT Received On 07/11/19 Reason for admission Patient admitted to current facility for rehabilitation to home with family and IV antibiotics for healing of LLE wound. Ordering Provider Fer Lomax MD Verified Two Patient Identifiers Yes Patient consents to therapy Yes Acute Inpatient OT Time Calculation OT Start Time 1058 OT Stop Time 1117 OT Time Calculation (min) 19 min Precautions Precautions Yes/No Yes Weight Bearing Status Full weight bearing General Precautions Fall Risk Instructed on Precautions Yes;Needs reinforcement and education Skin Integrity wounds to buttocks and LLE Other Kaplan Catheter and Schizophrenia Subjective Subjective Patient agreeable to ADL session. Patient asking for a notebook at end of session. Patient was provided with blank copy paper and an ink pen. Pain Pain Patient does not offer or c/o pain Objective Objective Patient seated in bedside chair. Activity Tolerance Endurance Tolerates 10 - 20 min activity with rests Cognition Overall Cognitive Status Impaired Arousal/Alertness Generalized responses Attention Span Difficulty attending to directions Orientation Level Oriented X4 ADL Eating/Feeding Assistance Sitting in chair (setup) Eating/Feeding Deficit Increased time to complete (moderate spillage noted to gown) Grooming Assistance Stand by;Sitting in chair (does not want to complete standing at the sink this AM) Grooming Comment Complete oral care , washing hands and faces Bathing Assistance Maximal;Sitting in chair Bathing Comment Patient attending to entire UB and upper legs but requires assistance for throughness. Total assistance for lower legs, feet, angela area and buttocks. Patient was able to stand with walker for attending to buttocks and angela area. UE Dressing Assistance Minimal;Sitting in chair UE Dressing Deficit Setup;Verbal cueing;Supervision/safety;Increased time to complete;Thread RUE UE Dressing Comment [facility] LE Dressing Assistance Total;Sitting in chair LE Dressing Deficit Don/doff R sock;Don/doff L sock Additional Comments Street clothes have not been brought in by family. Functional Transfers Sit to Stand Mod assist (from bedside chair with walker) Assessment OT Assess/Eval Other (Comment) Patient requires initiation cues and encouragement for grooming, bathing and dressing tasks. Patient is pleasant during session and appears eager to please. Patient continues to benefit from skilled therapies to increase strength for ADLS, transfers and mobility. Patient/Family Training Self Cares initation cues for ADL completion Transfer Training proper hand placement with sit to stand Recommendation OT Recommendation OT during Hospitalization;Swing Bed Unit (at [facility] vs. home with family assistance ) Barriers to Community Discharge Cognition;Lack of caregiver;Safety;Stairs Plan OT Treatment/Intervention Self-care training Progress Progressing toward goals OT Frequency 5 times/week (mon-fri, 1-2x/day) OT - Next Appointment 07/12/19 If this is the last treatment note, it will serve as the discharge summary Yes End of Session Safety End of Session Safety Call light within reach;Nursing aware of session * June Johnson PTA - 07/11/2019 11:48 AM CDT 07/11/19 1100 Therapy Visit Ordering Provider Nina TORRES Received On 07/11/19 Treatment Day 2 Subjective Pt in bed agreeable to do a few ex and get up in chair to eat lunch sitting up. Reason for admission L LE ulcer Relevant Comorbidities/ Personal Factors to PT PMH: HTN, HLD, breast CA, DM2, schizophrenia, PVD, dementia Verified Two Patient Identifiers Yes Patient consents to therapy Yes Acute Inpatient PT Time Calculation PT Start Time 0956 PT Stop Time 1028 PT Time Calculation (min) 32 min Precautions Precautions Yes/No Yes Weight Bearing Status Full weight bearing General Precautions Bed Alarm;Fall Risk Instructed on Precautions Yes;Needs reinforcement and education Skin Integrity wounds to LE and buttock Other Kaplan Catheter and Schizophrenia Pain Pain Patient does not offer or c/o pain Activity Tolerance Endurance Tolerates 20 - 30 min activity with rests Activity Tolerance Comments fait Cognition Overall Cognitive Status Impaired Other (Comment) Pt would follow commands but didn't talk much or offer any additional info. TRANSFERS Sit to Stand Min assist;Mod assist Gait Gait Assistance Contact guard assist;Min assist Assistive Device 4 Wheeled walker Ambulation Distance (Feet) 5 shuffle steps to get to chair Pattern Shuffle steps Balance Sitting - Static SBA Sitting - Dynamic Min Assist Patient/Family Training Transfer Training hand placement and how to put on brakes and take them off Gait Training 4 WW and use of brakes PT Assessment PT Assessment Pt in bed did a few ex in bed ankle pumps, quad set, and glut set 10 reps ea and to both LE. Pt agreed to get up in chair to eat lunch sitting. When starting to move pt to sit EOB states she had a BM and was sitting in it and needed to be cleaned before doing anything else. Nursing assisted with cleanup and more sores on buttock region noticed. Once cleaned sat pt EOB pt complained of being very dizzy and had to sit for a few min then able to transer to chair. Pt required cues to push up from bed and how to take brakes off walker pt took 5 shuffle steps to chair. Pt fatigued after session. Modified Merced Score Score 0-6 2 Slight disability, unable to carry out all previous activities, but able to look after own affairs without assistance Recommendation PT Recommendation Swing Bed Unit;Home PT PT Equipment Recommended 4 Wheeled walker Barriers to Community Discharge Cognition;Lack of caregiver;Safety;Stairs Plan PT Treatments/Interventions Gait Training;Therapeutic Exercises;Therapeutic Activities;Neuromuscular re-education;Patient/family training PT Frequency Daily;BID;3 times/week;6 times/week End of Session Safety End of Session Safety Call light within reach End of Session Comment Pt up in chair * Renay Manuel Barba, OT - 07/10/2019 6:39 PM CDT 07/10/19 1800 Therapy Visit OT Received On 07/10/19 Reason for admission Patient admitted to current facility for rehabilitation to home with family and IV antibiotics for healing of LLE wound. Comorbidities Relevant to OT Past Medical History: Diagnosis Date ??? Cancer (CMS/HCC) breast ??? Diabetes mellitus (CMS/HCC) ??? Disease of thyroid gland ??? Hypertension ??? PVD (peripheral vascular disease) (CMS/HCC) ??? Schizophrenia (CMS/HCC) Past Surgical History: Procedure Laterality Date ??? BREAST SURGERY Bilateral ??? KNEE SURGERY Right ??? REMOVAL OF OVARY(S) Left ??? UPPER ARM/ELBOW SURGERY UNLISTED Right No current outpatient medications on file. Ordering Provider Fer Garrido MD Verified Two Patient Identifiers Yes Patient consents to therapy Yes Acute Inpatient OT Time Calculation OT Start Time 1526 OT Stop Time 1557 OT Time Calculation (min) 31 min OT Therapy Interruption (min) total eval time 40 min to include chart review and documentation. Individual treatement min 16. Precautions Precautions Yes/No Yes Weight Bearing Status Full weight bearing General Precautions Bed Alarm;Fall Risk Instructed on Precautions Yes;Needs reinforcement and education Skin Integrity wounds to LE Other Kaplan Catheter/ Schizophrenia Subjective Subjective Patient agreeable to OT evaluation. Patient reports she wants to remain up in chair at end of session. Home Living Type of Home House Home Layout One level Home Accessibility 0 Steps to enter (through back door; 2 steps at front door ) Bathroom Shower/Tub Walk-in shower Bathroom Toilet Standard Toilet Bathroom Equipment Tub/shower chair with back Bathroom Accessibility Accessible Home Equipment 2 Wheeled walker Additional Comments Reports her daughter and granddaughter assists her with LB ADLS Prior Function Level of [place] Independent with functional transfers;Independent with ambulation;Needs assistance with ADLs Device used at baseline 2 Wheeled walker Baseline Ambulation Distance/Assistance household ambulator; reports very short distances. Fall History Yes Reason for fall Loss of balance Most recent fall reason for admission How many falls in the past year? Multiple Lives With Family Receives Help From Family Therapy Leisure Reading;Visit with family and friends (TV) Comments Doesn't drive anymore. Gets out to go to [place] with assistance. Pain Pain Patient does not offer or c/o pain Objective Objective Patient seated in bedside chair upon arrival Activity Tolerance Endurance Tolerates 10 - 20 min activity with rests Activity Tolerance Comments fair Vision - Basic Assessment Current Vision Wears glasses Cognition Overall Cognitive Status Impaired Arousal/Alertness Generalized responses Attention Span Difficulty attending to directions Memory Decreased recall of recent events Orientation Level Oriented X4 Following Commands Follows multistep commands without difficulty Safety Judgment Decreased awareness of need for safety Awareness of Errors Decreased awareness of errors Problem Solving Assistance required to generate solutions Initiation Cues to initiate tasks Overall Extremity Assessment Upper Extremity BRENDON UES AROM WFLS, STRENGTH 4-/5 ADL Grooming Assistance Minimal;Stand by;Sitting upright in bed Grooming Deficit Setup;Verbal cueing;Supervision/safety;Increased time to complete Grooming Comment Completed func. grooming tasks from supported sit in bed (oral hygiene/wash face and hands/comb hair); Assist for thoroughness; Cues for initiation/follow through Bathing Comment not assessed this session LE Dressing Assistance Maximal;Total;Sitting in chair;Alternating sit/stand LE Dressing Deficit Setup;Steadying;Requires assistive device for steadying;Verbal cueing;Supervision/safety;Increased time to complete;Don/doff R sock;Don/doff L sock LE Dressing Comment cues for tech's/initiation/follow through; extra time; set up; steadying/safety; assist for distal reach Functional Transfers Sit to Stand Min assist (with 4 wheeled walke r) Toilet Transfers Mod assist (with 4 wheeled walker ) Balance Sitting - Static SBA Sitting - Dynamic Min Assist Assessment Occupational Profile and History Complexity Moderate (Expanded) Performance Skills Deficits Bathing/showering;Dressing;Functional mobility;Personal hygiene and grooming;Safety and emergency maintenance;Toileting Performance Deficit Level High (5 or more deficits) Clinical Decision Making Moderate (min/mod modifications) Complexity Level of Evaluation Moderate Prognosis Fair OT Assess/Eval Other (Comment) This 64 year old female presents with h/o falls, LE wounds, and decreased cognitive skills. Patient displays deficits with LB ADLS, transfers and mobility. Patient would benefit from skilled OT ervices to increase strength, ADL, transfers and mobility independence. Patient/Family Training Self Cares x Transfer Training x Recommendation OT Recommendation OT during Hospitalization;Swing Bed Unit (may require addtll tx at SNF if family cannot provide care) OT Equipment Recommended To Be Determined Plan OT Treatment/Intervention Self-care training;Therapeutic exercises;Therapeutic activities;Neuromuscular re-education;Functional activity;Safety Progress Progressing toward goals OT Frequency 5 times/week (-) OT plan for next session 1-2x/day, mon-fri OT - Next Appointment 07/11/19 If this is the last treatment note, it will serve as the discharge summary Yes End of Session Safety End of Session Safety Call light within reach;Nursing aware of session Cosigned by Fer Garrido MD at 07/12/2019 8:59 AM CDT * Irene Patel, SVP BUSINESS DEVELOPMENT - 07/10/2019 4:28 PM CDT 07/10/19 1500 Therapy Visit Ordering Provider Nina PT Received On 07/10/19 Treatment Day 1 Subjective Patient is up in chair. Patient reports she is willing to walk and wants to try thw 4 wheeled walker. Reason for admission L LE ulcer Relevant Comorbidities/ Personal Factors to PT PMH: HTN, HLD, breast CA, DM2, schizophrenia, PVD, dementia Verified Two Patient Identifiers Yes Patient consents to therapy Yes Acute Inpatient PT Time Calculation PT Start Time 1409 PT Stop Time 1427 PT Time Calculation (min) 18 min Precautions Precautions Yes/No Yes Other Kaplan Catheter/ Schizophrenia Activity Tolerance Endurance Tolerates 10 - 20 min activity with rests Activity Tolerance Comments fair, patient does need to sit while walking in hallway. Cognition Overall Cognitive Status Impaired Orientation Level Oriented to situation;Oriented to person;Disoriented to place Following Commands Follows multistep commands without difficulty Safety Judgment Decreased awareness of need for safety Awareness of Errors Decreased awareness of errors TRANSFERS Sit to Stand Min assist;Mod assist Gait Gait Assistance Contact guard assist Assistive Device 4 Wheeled walker Ambulation Distance (Feet) 40 ft Pattern Shuffle steps Other (Comment) Patient did have to stop and sit on seat of walker in hallway. Balance Sitting - Static SBA Sitting - Dynamic Min Assist Standing - Static Support of both upper extremities;CGA Standing - Dynamic Support of both upper extremities;Mod Assist Patient/Family Training Transfer Training hand palcement and using brakes Gait Training 4 WW and use of brakes. PT Assessment PT Assessment Patient up in chair and comes to standing with some verbal cues to push up from chair. Patient instructed in use of hand brakes. Patient wanted to sit on seat of rollator, so she lockedbrakes but walker did roll a little so had to steady walker for safety. Patient stood and showed how to use brakes and walk back to room and seated in chair. There is concern as to whether patient will be safe with using brakes on walker, may try 2 WW tomorrow to see if safer. Patient also reports she would like to get one of those motorized scooters so could wheel herself to the grocery store and laundromat. Modified Mer[place] Score Score 0-6 2 Slight disability, unable to carry out all previous activities, but able to look after own affairs without assistance Recommendation PT Recommendation Swing Bed Unit;Home PT PT Equipment Recommended 4 Wheeled walker;2 Wheeled walker (To be decided. Patient states she doesn't have a 4 w/w.) Barriers to Community Discharge Cognition;Lack of caregiver;Stairs;Safety Plan PT Treatments/Interventions Gait Training;Therapeutic Exercises;Therapeutic Activities;Neuromuscular re-education;Patient/family training PT Frequency Daily;BID;3 times/week;6 times/week PT plan for next session Dynamic balance and gait and steps End of Session Safety End of Session Safety Call light within reach End of Session Comment Patient in chair. * Genesis Castellanos LCSW - 07/10/2019 2:07 PM CDT home worker met with patient today , patient does participate in visit, patient is alert to self and place able to make needs known, short term memory deficit, history of schizophrenia , patient pleasant with care. Patient states she likes to watch television. Patient son and daughter are primary care givers. Patient admitted to [facility] SWING BED for IV antibiotic Daptomycin 1x daily. PT and OT, and wound care. Patient is able to make needs known. Length of stay 7 days? home worker also spoke with patient's son Alisson who states he will speak with patient's daughter his sister to discuss discharge plan. Patient has been a resident at [facility] in [facility] family may want patient to return there. Or patient may go to daughter's home or son's home. Patient is a diabetic as well. Patient requires 24 hour care for assistance with all ADL s , meal prep, etc... Patient is not ableto manage her own finances. home worker will follow. * Chao Ricci, RD - 07/10/2019 11:10 AM CDT Dietitian Nutrition Assessment Karynliviajohn Evans Ankur, 1955, 64-year-old female admitted for Swing bed Ulcer of lower limb, Sepsis, Diabetes Nutrition Recommendations: Nutrition Diagnosis: INCREASED NUTRIENT NEEDS Related to Skin breakdown to lower extremity, low protein stores, uncontrolled diabetes with Hgb A1c 11.4 (05/08), 9% weight loss in past 30 days. Nutrition Intervention: MEDICAL FOOD SUPPLEMENT THERAPY using commercial product Gelatein with lunch and dinner to provide additional 40g protein per day to promote wound healing. Nutrition Prescription: Recommend patient consume nutritional supplement during hospital stay. Nutrition Monitoring and Evaluation: Patients food and beverage intake will >75% on average of meals. Past Medical History Past Medical History: Diagnosis Date ??? Cancer (CMS/HCC) breast ??? Diabetes mellitus (CMS/HCC) ??? Disease of thyroid gland ??? Hypertension ??? PVD (peripheral vascular disease) (CMS/HCC) ??? Schizophrenia (CMS/HCC) Referral From: Nutrition Screening Assessment: Initial Assessment Anthropometrics: Wt Readings from Last 3 Encounters: 07/09/19 80.9 kg (178 lb 5.6 oz) 07/09/19 78.2 kg (172 lb 6.4 oz) 06/07/19 88.5 kg (195 lb 1.7 oz) Ht Readings from Last 1 Encounters: 07/09/19 5' 2 (1.575 m) Body mass index is 32.62 kg/m??. BMI Assessment: Grade 1 Obesity [place] Body Weight: Adj. Body weight 125# Percent Adj. Body Weight: 142% Percent Weight Loss: 9% Nutrition: Current Diet Order: Diet general Appropriate Diet Comment: Patient lives at home by herself. Patient appears to have 9% wt. Loss in past 30 days. Swing bed patient for 7 days ABX. Chewing/swallowing problem: NO Food allergies/intolerances: No Cultural/Lutheran food preferences: No Current diet appropriate? Yes Current intake sufficient to meet nutritional needs? No intake noted as of this note on this admission. Estimated Nutrient Needs: Calories: 1549 - 1678 kcal per day (MSJ x 1.2-1.3) Protein: 74-80 g/ Adj.BW kg) Labs: TP 7.0, Alb 2.2 HGB A1C Date Value Ref Range Status 05/08/2019 11.4 (H) 4.2 - 6.3 % Final Comment: ADA GUIDELINES 2010 5.7 TO 6.4% INCREASED RISK OF DIABETES > OR = 6.5% CONSISTENT WITH DIABETES Nutrition Risk: High Discharge nutrition plan: Discharge needs assessed. Will provide/update discharge instructions as needed. (See Nutrition Prescription above) [address] 07/10/19, 11:10 AM * Natalie Faye, PT - 07/10/2019 11:01 AM CDT 07/10/19 1000 SWING BED PHYSICAL THERAPY EVALUATION Ordering Provider Nina TORRES Received On 07/10/19 Treatment Day 1 Subjective Room 118. Patient seated in chair. States that her right hip is painful (6/10) and she has some tampered down dizziness. Reason for admission L LE ulcer Relevant Comorbidities/ Personal Factors to PT PMH: HTN, HLD, breast CA, DM2, schizophrenia, PVD, dementia Verified Two Patient Identifiers Yes Patient consents to therapy Yes Acute Inpatient PT Time Calculation PT Start Time 1013 PT Stop Time 1047 PT Time Calculation (min) 34 min Precautions Precautions Yes/No Yes Skin Integrity Wounds on LE Other Kaplan Catheter/ Schizophrenia Home Living Type of Home House Home Layout One level Home Accessibility 0 Steps to enter (0 steps at [facility], 4-5 steps at her home.) Bathroom Accessibility Accessible (Accessible at granddaughter's, don't have it at her home.) Home Equipment 4 Wheeled walker Additional Comments Looking to get a helper at home. Prior Function Level of [place] Independent with functional transfers;Independent with ambulation Device used at baseline 4 Wheeled walker (After session, patient states that her granddaugher is supposed to get her one, but she hasn't seen it yet. Unsure what devices she has already) Baseline Ambulation Distance/Assistance household ambulator Fall History Yes Reason for fall Loss of balance Most recent fall reason for admission How many falls in the past year? Multiple Lives With Alone (granddaughter) Receives Help From Family Comments Doesn't drive anymore. Gets out to go to [place] with assistance. Activity Tolerance Endurance Tolerates 10 - 20 min activity with rests Cognition Overall Cognitive Status Impaired Orientation Level Oriented to situation;Oriented to person;Disoriented to place Following Commands Follows multistep commands without difficulty Safety Judgment Decreased awareness of need for safety Awareness of Errors Decreased awareness of errors RLE Assessment RLE Comment Hip flex = 4/5, Quads 4- - 4/5 Ankle DF 4/5 LLE Assessment LLE Comment Hip flex = 4+/5, Quads 4/5 Ankle DF 4-4+/5 TRANSFERS Sit to Stand Min assist;Mod assist Gait Gait Assistance Contact guard assist Assistive Device 4 Wheeled walker (Patient needed verbal cues on how to operate the 4 w/w with use of brakes) Ambulation Distance (Feet) 10 feet Pattern Shuffle steps Other (Comment) C/o left hip pain with ambulation. Rates left hip pain 2/10 after gait trial stating that she has a pain pill in her now (not administered during PT session or by RN immediately before.) Balance Sitting - Static SBA Sitting - Dynamic Min Assist Standing - Static Support of both upper extremities;CGA Standing - Dynamic Support of both upper extremities;Mod Assist Patient/Family Training Transfer Training Importance of hand placement for safety. Gait Training 4 w/w and use of brakes. Other (Comment) Patient states I'll be good to go home once this left hip lets up Assessment Personal Factors/Comorbidities Impacting Care 3-4 personal factors/comorbidities Examination of Body Systems High (at least 4 Elements) Objectives of Body Systems Impaired bed mobility;Impaired transfers;Impaired ambulation;Impaired balance;Decreased LE strength;Decreased safe judgement;Decreased cognition;Decreased endurance Clinical Presentation of Patient Evolving and changing characteristics Complexity Level of Evaluation Moderate Prognosis Fair;Good PT Assess/Eval Other (Comment) Patient is a 64 year old female presenting with L LE ulcers s/p fallwhile staying with her granddaughter. She demonstrates decreased LE strength and increased need of assistance at the moment. She wishes to return home alone with a caregiver as needed. Patient would benefit from skilled PT to address deficits in order to improve safety and return to PLOF. Modified [place] Score Score 0-6 2 Slight disability, unable to carry out all previous activities, but able to look after own affairs without assistance Recommendation PT Recommendation Swing Bed Unit;Home PT PT Equipment Recommended 4 Wheeled walker;2 Wheeled walker (To be decided. Patient states she doesn't have a 4 w/w.) Barriers to Community Discharge Cognition;Lack of caregiver;Stairs;Safety Plan PT Treatments/Interventions Gait Training;Therapeutic Exercises;Therapeutic Activities;Neuromuscular re-education;Patient/family training PT Frequency Daily;BID;3 times/week;6 times/week PT plan for next session Dynamic balance, gait and steps. If this is the last treatment note,it will serve as the discharge summary Yes End of Session Safety End of Session Safety Call light within reach * Ivelisse Holden RN - 07/09/2019 11:48 PM CDT Patient currently here for skilled stay. A/O x4. Able to assist with bed mobility and help turn. Turned 2Qhrs related to pressure ulcer to coccyx. documented in this encounter H&P Notes * Fer Garrido MD - 07/10/2019 7:22 PM CDT Hospitalist History and Physical Admission date: 07/09/2019 Reason for Admission: Ulcer of lower limb, left, limited to breakdown of skin (CMS/HCC) History of present illness: Iris Pascual is a 64-year-old female, who has a past medical history of Cancer (CMS/HCC), Diabetes mellitus (CMS/HCC), Disease of thyroid gland, Hypertension, PVD (peripheral vascular disease) (CMS/HCC), and Schizophrenia (CMS/HCC).; and a has a past surgical history that includes Breast surgery (Bilateral); Knee surgery (Right); removal of ovary(s) (Left); and upper arm/elbow surgery unlisted (Right). Who presents with deconditioning 2/2 Bacteremia 2/2 LLE cellulitis, polymicrobial. Weakness is much improved. Denies F/C/CP/SOB/N/V/D. Allergies Allergies Allergen Reactions ??? Codeine Nausea and Vomiting Medication List: Medications Prior to Admission Medication Sig Dispense Refill ??? aspirin 325 MG tablet Take 1 tablet (325 mg total) by mouth daily. 180 tablet 0 ??? atorvastatin 40 MG tablet Take 1 tablet (40 mg total) by mouth daily. 30 tablet 0 ??? insulin glargine 100 UNIT/ML injection (VIAL) Inject 15 Units into the skin nightly at bedtime.1 vial 0 ??? levothyroxine 50 MCG tablet Take 1 tablet (50 mcg total) by mouth daily. (Patient taking differently: Take 75 mcg by mouth daily. ) 30 tablet 0 ??? pantoprazole EC 40 MG tablet Take 1 tablet (40 mg total) by mouth daily. 30 tablet 0 ??? chlorthalidone 25 MG tablet Take 1 tablet (25 mg total) by mouth daily. 30 tablet 0 ??? collagenase ointment Apply topically daily for 10 days. 15 g 0 ??? gabapentin 300 MG capsule Take 1 capsule (300 mg total) by mouth 3 (three) times daily. 90 capsule 0 ??? sodium chloride 0.9 % SOLN 100 mL with DAPTOmycin 500 MG SOLR 625 mg Inject 625 mg into the vein daily. Through 07/16 1 ampule 0 Current Facility-Administered Medications Medication ??? acetaminophen (TYLENOL) tablet 650 mg ??? aspirin tablet 325 mg ??? atorvastatin (LIPITOR) tablet 40 mg ??? chlorthalidone (HYGROTEN) tablet 25 mg ??? collagenase (SANTYL) ointment ??? DAPTOmycin (CUBICIN) 625 mg in sodium chloride 0.9 % 100 mL IVPB ??? docusate sodium (COLACE) capsule 100 mg ??? gabapentin (NEURONTIN) capsule 300 mg ??? heparin (porcine) injection 5,000 Units ??? insulin glargine (LANTUS) injection 15 Units ??? insulin lispro (HUMALOG) injection 0-16 Units And ??? insulin lispro (HUMALOG) injection 0-8 Units ??? levothyroxine (SYNTHROID) tablet 50 mcg ??? lidocaine-prilocaine (EMLA) cream ??? magnesium hydroxide (MILK OF MAGNESIA) 400 MG/5ML suspension 30 mL ??? pantoprazole EC (PROTONIX) tablet 40 mg Past Medical History Past Medical History: Diagnosis Date ??? Cancer (CMS/HCC) breast ??? Diabetes mellitus (CMS/HCC) ??? Disease of thyroid gland ??? Hypertension ??? PVD (peripheral vascular disease) (CMS/HCC) ??? Schizophrenia (CMS/HCC) Past Surgical History: Procedure Laterality Date ??? BREAST SURGERY Bilateral ??? KNEE SURGERY Right ??? REMOVAL OF OVARY(S) Left ??? UPPER ARM/ELBOW SURGERY UNLISTED Right Social History Social History Socioeconomic History ??? Marital status: Single Spouse name: Not on file ??? Number of children: Not on file ??? Years of education: Not on file ??? Highest education level: Not on file Occupational History ??? Not on file Social Needs ??? Financial resource strain: Not on file ??? Food insecurity: Worry: Not on file Inability: Not on file ??? Transportation needs: Medical: Not on file Non-medical: Not on file Tobacco Use ??? Smoking status: Never Smoker ??? Smokeless tobacco: Never Used Substance and Sexual Activity ??? Alcohol use: No Frequency: Never ??? Drug use: No ??? Sexual activity: Not on file Lifestyle ??? Physical activity: Days per week: Not on file Minutes per session: Not on file ??? Stress: Not on file Relationships ??? Social connections: Talks on phone: Not on file Gets together: Not on file Attends episcopalian service: Not on file Active member of club or organization: Not on file Attends meetings of clubs or organizations: Not on file Relationship status: Not on file ??? Intimate partner violence: Fear of current or ex partner: Not on file Emotionally abused: Not on file Physically abused: Not on file Forced sexual activity: Not on file Other Topics Concern ??? Not on file Social History Narrative ??? Not on file Family History Family History Family history unknown: Yes Review of Systems: A 14 point review of systems was taken and pertinent positive as per HPI. Physical Exam: Vitals: 07/10/19 1313 BP: 119/84 Pulse: 72 Resp: 18 Temp: 97.8 ??F (36.6 ??C) SpO2: 97% General: Laying in bed, tired. Eyes: EOMI, PERRLA ENT: MMM, septum midline Lungs: Dec BS in the bases, No wheezes, No crackles Cardiovascular: Regular rate rhythm, S1 and S2 normal, No murmurs, Abdomen: S, NT, no rebound/guarding. BS present. Extremities: Tr edema, dsg CDI. Neurological: Tired, No gross neuro deficit Psych: Flat affect, nl mood Skin: Skin color, texture, turgor normal. No rashes or lesions Intake/Output last 3 shifts: I/O last 3 completed shifts: In: - Out: 1150 [Urine:1150] Labs: Recent Labs Lab 07/04/19 0637 07/05/19 0525 07/06/19 1208 07/07/19 1048 07/08/19 0926 07/09/19 0720 07/10/19 0540 NA 136 135* 133* 136 135* 139 140 K 3.7 3.7 3.7 3.6 3.6 3.9 4.0 CL 100 98* 98* 99* 98* 100 101 CO2 31.8 31.4 28.5 30.5 31.2 33.4* 33.5* AGAP 4.2* 5.6 6.5 6.5 5.8 5.6 5.5 BUN 13 15 15 15 18 15 20* CR 0.85 0.76 0.84 0.79 0.78 0.61 0.75 BUNCREATININ 15.2 19.8 17.9 19.1 23.0 24.8 26.7* GFRNON 72* 83* 73* 79* 80* >90 84* GFR 84* >90 85* >90 >90 >90 >90 GLU 137* 248* 251* 223* 197* 83 153* CA 8.9 8.7 8.2* 8.1* 8.2* 8.3* 8.8 Recent Labs Lab 07/04/19 0637 07/05/19 0525 07/06/19 1208 07/07/19 1048 07/08/19 0926 07/09/19 0720 07/10/19 0540 WBC 5.8 6.9 7.2 7.4 7.7 6.5 6.3 RBC 3.15* 3.20* 2.93* 2.76* 2.75* 3.02* 2.72* HGB 9.0* 9.3* 8.5* 8.0* 7.9* 8.7* 7.8* HCT 27.8* 28.7* 26.6* 24.9* 24.9* 27.2* 24.9* MCV 88.3 89.7 90.8 90.2 90.5 90.1 91.5 MCH 28.6 29.1 29.0 29.0 28.7 28.8 28.7 MCHC 32.4 32.4 32.0 32.1 31.7* 32.0 31.3 PLT 161 190 208 221 250 299 395* RDW 17.0* 16.6* 17.0* 16.6* 16.4* 16.5* 16.4* MPV 10.4 10.8 10.4 10.3 9.5 9.5 -- Recent Labs Lab 07/04/19 0637 AST 24 ALT 22 Recent Labs Lab 07/05/19 0525 INR 1.1 PTT 33.1 Invalid input(s): ABG Recent Labs Lab 07/04/19 2211 CPK 57 No results for input(s): PH, PCO2, PO2, [id number], BICARBWB, BASEDEFICIT, BASEEXCESS in the [id number] hours. Imaging & Other Studies No results found. No results found for this visit on 07/09/19. Active Problems: Patient Active Problem List Diagnosis Date Noted ??? Bacteremia 07/05/2019 ??? Elevated troponin 06/29/2019 ??? Essential hypertension 06/29/2019 ??? Mixed hyperlipidemia 06/29/2019 ??? Encephalopathy acute 06/28/2019 ??? Generalized weakness 06/06/2019 ??? Hyperglycemia 06/05/2019 ??? Sepsis (CMS/HCC) 05/07/2019 ??? Ulcer of lower limb, left, limited to breakdown of skin (CMS/HCC) 03/12/2019 ??? Peripheral vascular disease (CMS/HCC) 03/12/2019 ??? Malignant neoplasm of upper-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, estrogen receptor negative ([facility]) 11/13/2017 Assessment & Plan: 64Yy F admitted w Bacteremia 2/2 LLE cellulitis requiring 7d of cont Daptomycin, to end 07/16/19. Polymicrobial Bacteremia MRSA, E faecalis Suspect??2/2 multiple wounds ID consulted, appreciate recs On??vanc initially, follow renal function, pharmacy to dose TTE obtained Repeat blood cx reveal 1/2 bottles with VRE, follow with ID recs Latest blood cultures neg Now on dapto through 07/17/19 per ID STAR d/t continued bacteremia, no evidence of endocarditis PICC line today ?? PVD With nonhealing wounds to LLE Vascular consulted, appreciate recs LLE arteriogram 07/05/2019 F/u in wound clinic ?? Anemia Hgb 8.7 today, improved from yesterday Baseline appears to be near 9 Suspect 2/2 wounds, c/b component of underlying CKD Iron studies and folate WNL Check guaiac,??still pending Start PPI BID Transfuse 1u pRBC 07/02 Now improved, awaiting guaiac ?? Severe Sepsis without Shock??: Resolved Patient was found to be hypothermic in the ED with temperature of 93.9F and hypotension (pressure 89/56 mmHg which improved with IVF). Vancomycin and Cefepime were initiated for broad coverage, ??Monitor Cr, vanc trough Transitioned to dapto as above Source: skin given multiple ulcers found on exam Blood cx 1/2 with MRSA and Enterococcus and MRSA, see above D/c IVF Monitor VS closely, hemodynamically stable ID consulted. Recs appreciated Repeat blood cx??NGSF Vascular surgery consulted, appreciate recs ?? Acute Metabolic Encephalopathy: resolved Due to multiple causes, including infection, hyperglycemia, ABDIRASHID, NSTEMI. CT of the Head performed in the ED revealed no acute intracranial process; stable cortical atrophy and small vessel disease with left supraorbital scalp swelling. Treat as noted above and monitor mental status. Hold off on MRI and carotid Doppler study ordered as likely metabolic encephalopathy Resolved? Elevated Troponin Initial Troponin level found to be 0.130. Trend Troponin levels. EKG revealed T-wave inversions. Cardiology consulted. Recs appreciated Echo with no WMAs Stress test as an outpatient per Cards ?? T2DM with Hyperglycemia on presentation Patient presented with glucose > 500, not in DKA. Per ER documentation, patient's insulin supply ran out. Patient given IV insulin in the ED. Lantus at HS and add SSI per protocol. D/c Lantus given recurrent hypoglycemia despite Reduced dose. ??Patient's diet obviously much more restricted here than at home. Restarted for uncontrolled BG Monitor Accu-checks both AC and HS. A1c 11.4 on 05/08/2019 Continue Lantus daily, add meal time insulin ?? ABDIRASHID on CKD 3: resolved Patient presented with BUN of 21 and SCr of 1.31, up from 0.92 last month. Hydration with IVF Resolved. Off IVF ?? Multiple pressure ulcers stage 2-3 POA Wound care c/s See media As above ?? Constipation Abd distention noted on exam. Denies tenderness, nausea or vomiting. Suspect constipation. No BM charted. Start bowel regimen. KUB with moderate stool burden. ?? Resolved ?? Obesity, BMI 31.21 ?? Hypothyroidism Increased levothyroxine Follow up with PCP and repeat labs in 4-6 weeks ?? ACP Full code Multiple admissions 2/2 noncompliance. SNF recommended last admission but patient and family ultimately declined. consulted for SNF placement. ? Disposition: Continue dapto through 07/16, Repeat BC neg.?? Admitted to B. ?? FER GARRIDO MD 07/10/2019 7:22 PM documented in this encounter Consult Notes * Stanislav Bishop MD - 07/14/2019 1:04 PM CDT Iris Pascual is a 64-year-old female admitted 07/09/2019 6:25 PM ( LOS: 5 days ) Consultation requested by Dr. Alvarez REASON FOR CONSULTATION: Seroma of the abdominal wall CHIEF COMPLAINT: History of Present Illness: Iris Pascual is a 64-year-old female with multiple medical conditions listed below this include but are not limited to diabetes, hypertension, history of breast cancer, peripheral vascular disease schizophrenia and Hypothyrpoidism. Is being treated biotic following sepsis and bacteremia second benitez to infected skin ulcers. I was consulted to evaluate this patient following an abnormal CT scanof the abdomen and pelvis that showed large anterior abdominal wall seroma. Patient was evaluated this afternoon. She was sitting comfortably in the chair watching TV. Eyes any abdominal pain, fever or chills. She still having frequent bowel movement. Still tolerating diet.according to the patient she has multiple ventral hernia repairs the last one is around 4 years ago. Breast surgery bilaterally. Not recall any issues with her ventral hernia surgery. She stated that she had problem with fluid loop leaking from the surgery site on the breast on the right side. She denies any pain on her breast and no pain on the anterior abdominal wall. She denies fever, cough, chest pain or shortness of breath urinary symptoms PAST MEDICAL HISTORY: Past Medical History: Diagnosis Date ??? Cancer (CMS/HCC) breast ??? Diabetes mellitus (CMS/HCC) ??? Disease of thyroid gland ??? Hypertension ??? PVD (peripheral vascular disease) (CMS/HCC) ??? Schizophrenia (CMS/HCC) Past Surgical History: Procedure Laterality Date ??? BREAST SURGERY Bilateral ??? KNEE SURGERY Right ??? REMOVAL OF OVARY(S) Left ??? UPPER ARM/ELBOW SURGERY UNLISTED Right ALLERGIES: Allergies Allergen Reactions ??? Codeine Nausea and Vomiting MEDICATIONS: Current Facility-Administered Medications Medication ??? acetaminophen (TYLENOL) tablet 650 mg ??? aspirin tablet 325 mg ??? atorvastatin (LIPITOR) tablet 40 mg ??? cefTRIAXone (ROCEPHIN) 1 g in sterile water 10 mL IV ??? chlorthalidone (HYGROTEN) tablet 25 mg ??? collagenase (SANTYL) ointment ??? DAPTOmycin (CUBICIN) 625 mg in sodium chloride 0.9 % 100 mL IVPB ??? gabapentin (NEURONTIN) capsule 300 mg ??? heparin (porcine) injection 5,000 Units ??? insulin glargine (LANTUS) injection 15 Units ??? insulin lispro (HUMALOG) injection 0-16 Units And ??? insulin lispro (HUMALOG) injection 0-8 Units ??? levothyroxine (SYNTHROID) tablet 50 mcg ??? lidocaine-prilocaine (EMLA) cream ??? loperamide (IMODIUM) capsule 2 mg ??? magnesium sulfate IVPB 2 g ??? pantoprazole EC (PROTONIX) tablet 40 mg ??? sodium chloride 0.9% infusion FAMILY HISTORY: Family History Family history unknown: Yes SOCIAL HISTORY: Social History Socioeconomic History ??? Marital status: Single Spouse name: Not on file ??? Number of children: Not on file ??? Years of education: Not on file ??? Highest education level: Not on file Occupational History ??? Not on file Social Needs ??? Financial resource strain: Not on file ??? Food insecurity: Worry: Not on file Inability: Not on file ??? Transportation needs: Medical: Not on file Non-medical: Not on file Tobacco Use ??? Smoking status: Never Smoker ??? Smokeless tobacco: Never Used Substance and Sexual Activity ??? Alcohol use: No Frequency: Never ??? Drug use: No ??? Sexual activity: Not on file Lifestyle ??? Physical activity: Days per week: Not on file Minutes per session: Not on file ??? Stress: Not on file Relationships ??? Social connections: Talks on phone: Not on file Gets together: Not on file Attends episcopalian service: Not on file Active member of club or organization: Not on file Attends meetings of clubs or organizations: Not on file Relationship status: Not on file ??? Intimate partner violence: Fear of current or ex partner: Not on file Emotionally abused: Not on file Physically abused: Not on file Forced sexual activity: Not on file Other Topics Concern ??? Not on file Social History Narrative ??? Not on file . REVIEW OF SYSTEMS: A 14 point comprehensive review of systems was negative, except as documented in HPI. I have reviewed and updated patient's past medical, surgical, family and social history. Objective: Filed Vitals: 07/13/19 0545 07/13/19 1255 07/13/19 1945 07/14/19 0500 BP: 120/60 118/66 112/58 117/60 Pulse: 88 90 75 92 Resp: 20 20 16 14 Temp: 99.3 ??F (37.4 ??C) 97.8 ??F (36.6 ??C) 98.7 ??F (37.1 ??C) 100.3 ??F (37.9 ??C) TempSrc: Temporal Axillary Tympanic Axillary SpO2: 98% 99% 99% 95% Weight: Height: Body mass index is 32.62 kg/m??. Physical Exam: General appearance: alert and oriented X 3, no distress, cooperative Head: Normocephalic, without obvious abnormality, atraumatic Eyes: conjunctivae/corneas clear. Pupils equal, round, reactive to light. Throat: Lips, mucosa, and tongue normal. Neck: supple, symmetrical, trachea midline, no adenopathy, thyroid: not enlarged, symmetric, no tenderness/mass/nodules Lungs: clear to auscultation bilaterally, normal respiratory effort Tense 5 x 7 cm mass under the scar of the right area. Tense but nontender no drainage no cellulitis Heart: regular rate and rhythm, S1, S2 normal, no murmur. Abdomen: soft, non-tender. Bowel sounds normal. No masses, no organomegaly; no hernias , there is 10 x 5 cm tense mass in the anterior abdominal wall consistent with seroma. The skin is normal about it. It is non-tender. No drainage or cellulitis Rectal: Deferred Extremities: extremities normal, atraumatic, no cyanosis or edema. At least stage III decubitus ulcer on the part of the upper part of the left thigh/buttock Lab Review: Lab Results Component Value Date BUN 23 (H) 07/14/2019 Lab Results Component Value Date AST 24 07/04/2019 Lab Results Component Value Date CPK 74 07/11/2019 No components found for: [id number] No results found for: BNP Lab Results Component Value Date WBC 6.9 07/14/2019 MCV 92.2 07/14/2019 Lab Results Component Value Date INR 1.1 07/05/2019 PROTIME 12.5 (H) 07/05/2019 Lab Results Component Value Date PTT 33.1 07/05/2019 IMAGING: [I reviewed the digital images of the patient's imaging studies.] ASSESSMENT: Principal Problem: Ulcer of lower limb, left, limited to breakdown of skin (CMS/HCC) SNOMED CT(R): SUPERFICIAL SKIN ULCER OF LOWER LIMB 64-year-old female with multiple medical conditions. There is incidental finding of chronic abdominal wall seroma in the background of ventral hernia repair around 4 years ago. This is completely asymptomatic and I would not recommend any intervention at this time. Agrees to this plan andshe told me she has no symptoms and she has no complaint of any pain in this area and she does not want anything done RECOMMENDATIONS: No surgical intervention indicated at this time Continue management as per primary Follow-up as needed The plan of care was discussed with the patient, primary team and nursing staff. Thank you for allowing me to participate in the care of this patient. Please feel free to call if you have any questions or concerns. By: STANISLAV BISHOP MD, 07/14/2019, 1:04 PM Attending Provider: Shmuel Alvarez MD Primary Care Physician: Don Branham MD documented in this encounter Nursing Notes * Jodi Asif RN - 07/16/2019 3:08 PM CDT Swing pt receiving IV antibiotics , OT , PT. To have wound consult today to determine further woundcare management. * Jodi Asif RN - 07/16/2019 8:57 AM CDT Wound clinic returned previous calls and will see pt this evening. Dr Alvarez notified. * Elaina Stark RN - 07/16/2019 7:36 AM CDT Spoke with Preeti at [facility] wound clinic. Preeti stated that she will be here to see the pt this evening. * Sharon Mathis RN - 07/16/2019 7:26 AM CDT Patient slept most of the night. Turned side to side q2hr with few complaints. Denies any pain or discomfort. Awake and alert this morning. Snack offered at 0530 - denied, soda brought to room. All wound dressings remain in place. * Jodi Asif RN - 07/15/2019 6:00 PM CDT No response from wound clinic today. Sue Turner RN Supervisor [employer] informed. * Jodi Asif RN - 07/15/2019 2:00 PM CDT Pt swing pt receiving IV antibiotics. Fluconazole IV added to regimin today. * Jodi Asif RN - 07/15/2019 12:47 PM CDT Pts daughter called and message left for her to call her mother as requested * Jodi Asif RN - 07/15/2019 11:30 AM CDT No reponse from wound clinic. Supervisor [employer] Sue Truner RN notified and will try calling as well. * Genesis Turner RN - 07/15/2019 11:00 AM CDT Called over to wound clinic in [place] and left a voice mail to return a phone call about a consult. Was not sure if wound clinic was open so called to [facility] and asked to speak with supervisor toy parts former and spoke with Audrey and she said she knew they were there today and was busy so they would call back. Audrey is unsure if they can do inpatient consults but said to leave a voice mail which was done twice. * Jodi Asif RN - 07/15/2019 9:50 AM CDT Call to [facility] wound clinic for referal on wound care. Message left. * Jodi Asif RN - 07/15/2019 9:30 AM CDT Spoke to Dr Alvarez regarding pts wounds to left ishcial area. Pt has large amount of drainage and foul odor to wound. Order received for wound clinic consult. * Brandy Altamirano RN - 07/15/2019 2:38 AM CDT Swing bed status continues for antibiotic therapy. Assists with repositioning in bed. Denies any pain at this time. Snack offered and accepted last evening. * Jaylin Veliz RN - 07/14/2019 1:36 PM CDT Patient swing bed status for continued IV antibiotics. No c/o pain today. Continues to work with PT/OT, patient ambulating small distances with 1 assist, gait belt and walker. Plans to discharge to long-term facility after completion of IV antibiotics. * Nguyen Foreman RN - 07/13/2019 5:03 PM CDT Patient unable to participate with PT today due to frequent bowel incontinence. Patient states she is sometimes unaware that she is having a bowel movement. Patient does not have much motivation to assist nursing with bed changes. Patient repositioned every 2 hours to decrease risk of further skin breakdown. The pressure ulcer on coccyx is open to air because of multiple stools and management system was not tolerated by patient, dressing will not stay in place. * Nguyen Foreman RN - 07/13/2019 8:05 AM CDT Attempted to insert diginshield to catch multiple loose/watery stools. Patient could not tolerate and was unable to place. * Dominga Griffith RN - 07/13/2019 6:00 AM CDT Patient continues with PT/OT. Kaplan cath remains in place at this time r/t ulcer on coccyx. Dressings to lower left leg ulcer in place. Pt denies any pain at this time. Inc of Stool this AM. Assistedto BSC with 2 assist, walker and gait belt. * Jaylin Veliz RN - 07/12/2019 2:11 PM CDT Patient swing bed status for continued IV antibiotics. Working with PT/OT daily. Minimal c/o pain, tolerable with Tylenol. Ambulating with 1-2 assist, gait belt, walker. * Valeria Chavez RN - 07/11/2019 11:13 PM CDT PATIENT HAD DIFFICULTY GETTING UP FROM THE RECLINER. WALKS SLOWLY WITH WHEELED WALKER. NEEDED HELP LIFTING UP OFF OF COMMODE WITH 2 ASSIST AND GAIT BELT. TOOK 100% OF HS SNACK OF CRACKERS AND PEANUT BUTTER. * Barbara Oconnor RN - 07/11/2019 6:10 PM CDT Patient receiving physical and occupational therapy. Patient receiving an antibiotic daptomycin IVPB once daily. Patient ambulating one assist with gait belt and front wheeled walker. Patient needs assistance with bed mobility and help turning. * Mary Beth Foreman RN - 07/10/2019 1:49 PM CDT A&O X 4. Transferred to chair with 1 assist with walker. Patients needs max assist with tolieting and ADL'S. Patient has been incontinent on BM. Kaplan catheter in place due to decub on buttock. MARY BETH FOREMAN RN documented in this encounter Plan of Treatment Not on file documented as of this encounter Procedures Procedure Name Priority Date/Time Associated Diagnosis Comments POCT GLUCOSE - CHONG DOCKED DEVICE Routine 07/16/2019 4:17 PM CDT POCT GLUCOSE - CHONG DOCKED DEVICE Routine 07/16/2019 11:11 AM CDT POCT GLUCOSE - CHONG DOCKED DEVICE Routine 07/16/2019 7:50 AM CDT BASIC METABOLIC PANEL Routine 07/16/2019 3:20 AM CDT CBC W/DIFF AUTOMATED Routine 07/16/2019 3:20 AM CDT MAGNESIUM Routine 07/16/2019 3:20 AM CDT POCT GLUCOSE - CHONG DOCKED DEVICE Routine 07/15/2019 8:30 PM CDT POCT GLUCOSE - CHONG DOCKED DEVICE Routine 07/15/2019 3:29 PM CDT POCT GLUCOSE - CHONG DOCKED DEVICE Routine 07/15/2019 11:22 AM CDT POCT GLUCOSE - CHONG DOCKED DEVICE Routine 07/15/2019 7:29 AM CDT BASIC METABOLIC PANEL Routine 07/15/2019 5:55 AM CDT CBC W/DIFF AUTOMATED Routine 07/15/2019 5:55 AM CDT MAGNESIUM Routine 07/15/2019 5:55 AM CDT POCT GLUCOSE - CHONG DOCKED DEVICE Routine 07/14/2019 8:42 PM CDT POCT GLUCOSE - CHONG DOCKED DEVICE Routine 07/14/2019 4:10 PM CDT POCT GLUCOSE - CHONG DOCKED DEVICE Routine 07/14/2019 11:09 AM CDT BASIC METABOLIC PANEL Routine 07/14/2019 9:13 AM CDT CBC W/DIFF AUTOMATED Routine 07/14/2019 9:13 AM CDT MAGNESIUM Routine 07/14/2019 9:13 AM CDT POCT GLUCOSE - CHONG DOCKED DEVICE Routine 07/14/2019 7:24 AM CDT POCT GLUCOSE - CHONG DOCKED DEVICE Routine 07/13/2019 9:45 PM CDT POCT GLUCOSE - CHONG DOCKED DEVICE Routine 07/13/2019 8:19 PM CDT POCT GLUCOSE - CHONG DOCKED DEVICE Routine 07/13/2019 4:[address] ABD+PEL W CON Today 07/13/2019 12:5 1 PM CDT POCT GLUCOSE - CHONG DOCKED DEVICE Routine 07/13/2019 11:09 AM CDT URINALYSIS WI REFLEX TO CULTURE Routine 07/13/2019 10:05 AM CDT URINE BACTERIA CULTURE Routine 07/13/2019 10:05 AM CDT POCT GLUCOSE - CHONG DOCKED DEVICE Routine 07/13/2019 7:49 AM CDT HEMOGLOBIN, GLYCOSYLATED Routine 07/13/2019 5:10 AM CDT BASIC METABOLIC PANEL Routine 07/13/2019 5:10 AM CDT CBC W/DIFF AUTOMATED Routine 07/13/2019 5:10 AM CDT MAGNESIUM Routine 07/13/2019 5:10 AM CDT POCT GLUCOSE - CHONG DOCKED DEVICE Routine 07/12/2019 8:24 PM CDT POCT GLUCOSE - CHONG DOCKED DEVICE Routine 07/12/2019 4:26 PM CDT POCT GLUCOSE - CHONG DOCKED DEVICE Routine 07/12/2019 11:35 AM CDT POCT GLUCOSE - CHONG DOCKED DEVICE Routine 07/12/2019 6:59 AM CDT POCT GLUCOSE - CHONG DOCKED DEVICE Routine 07/11/2019 8:03 PM CDT POCT GLUCOSE - CHONG DOCKED DEVICE Routine 07/11/2019 4:17 PM CDT POCT GLUCOSE - CHONG DOCKED DEVICE Routine 07/11/2019 11:22 AM CDT CK (CPK) Routine 07/11/2019 7:40 AM CDT POCT GLUCOSE - CHONG DOCKED DEVICE Routine 07/11/2019 7:34 AM CDT POCT GLUCOSE - CHONG DOCKED DEVICE Routine 07/10/2019 7:55 PM CDT POCT GLUCOSE - CHONG DOCKED DEVICE Routine 07/10/2019 4:09 PM CDT POCT GLUCOSE - CHONG DOCKED DEVICE Routine 07/10/2019 11:17 AM CDT POCT GLUCOSE - CHONG DOCKED DEVICE Routine 07/10/2019 7:08 AM CDT BASIC METABOLIC PANEL Routine 07/10/2019 5:40 AM CDT CBC W/DIFF AUTOMATED Routine 07/10/2019 5:40 AM CDT POCT GLUCOSE - CHONG DOCKED DEVICE Routine 07/10/2019 12:23 AM CDT HC CLOSTRIDUM DIFFICILE Routine 07/09/2019 11:08 PM CDT documented in this encounter Results * (ABNORMAL) POCT glucose (07/16/2019 4:17 PM CDT) GLUCOSE POC 152(H) 70 - 99 MG/DL 07/16/2019 4:22 PM CDT HS LAB ORDERS INTERFACE 07/16/2019 4:17 PM CDT Shmuel Alvarez MD POCT ORDERABLES - DEVICE Final R esult Performing Organization Address [facility] Co de Phone Number [facility] LAB ORDERS INTERFACE US * (ABNORMAL) POCT glucose (07/16/2019 11:11 AM CDT) GLUCOSE POC 198(H) 70 - 99 MG/DL 07/16/2019 11:13 AM CDT [facility] LAB ORDERS INTERFACE 07/16/2019 11:1 1 AM CDT Shmuel Alvarez MD POCT ORDERABLES - DEVICE Final R esult Performing Organization Address [facility] Co de Phone Number [facility] LAB ORDERS INTERFACE US * (ABNORMAL) POCT glucose (07/16/2019 7:50 AM CDT) GLUCOSE POC 142(H) 70 - 99 MG/DL 07/16/2019 8:00 AM CDT [facility] LAB ORDERS INTERFACE 07/16/2019 7:50 AM CDT Shmuel Alvarez MD POCT ORDERABLES - DEVICE Final R esult Performing Organization Address [facility]/State/[facility] Co de Phone Number [facility] LAB ORDERS INTERFACE US * MAGNESIUM (07/16/2019 3:20 AM CDT) MAGNESIUM 2.0 1.8 - 2.4 MG/DL 07/16/2019 3:57 AM CDT [facility] 07/16/2019 3:20 AM CDT Shmuel Alvarez MD LABORATORY Final Result [facility] [address] [address], [place] [phone] * (ABNORMAL) CBC W/DIFF AUTOMATED (07/16/2019 3:20 AM CDT) WBC 5.9 4.8 - 10.8 x10'3/uL 07/16/2019 3:32 AM CDT [facility] RBC 2.58(L) 4.10 - 5.10 x10'6/uL 07/16/2019 3:32 AM CDT [facility] HGB 7.3(L) 12.0 - 16.0 G/DL 07/16/2019 3:32 AM CDT [facility] HCT 23.6(L) 36 - 46 % 07/16/2019 3:32 AM CDT [facility] MCV 91.5 80 - 100 FL 07/16/2019 3:32 AM CDT [facility] MCH 28.3 26.0 - 34.0 PG 07/16/2019 3:32 AM CDT [facility] MCHC 30.9(L) 31.0 - 37.0 G/DL 07/16/2019 3:32 AM CDT [facility] RDW 16.4(H) 11.5 - 14.5 % 07/16/2019 3:32 AM CDT [facility] PLT 294 150 - 350 x10'3/uL 07/16/2019 3:32 AM CDT [facility] CBC COMMENT AUTOMATED RBC MORPHOLOGY AND PLATELET EVALUATION NORMAL 07/16/2019 3:32 AM CDT [facility] NEUTROPHILS % 61.3 50 - 70 % 07/16/2019 3:32 AM CDT [facility] LYMPHOCYTES % 22.6 18 - 42 % 07/16/2019 3:32 AM CDT [facility] MONOCYTES % 8.0 2.0 - 11.0 % 07/16/2019 3:32 AM CDT [facility] EOSINOPHILS 7.2(H) 1.0 - 3.0 % 07/16/2019 3:32 AM CDT [facility] BASOPHILS 0.9 0.0 - 1.0 % 07/16/2019 3:32 AM CDT [facility] ABS. NEUTROPHILS TOTAL 3.59 1.69 - 7.81 x10'3/uL 07/16/2019 3:32 AM CDT [facility] 07/16/2019 3:20 AM CDT us Shmuel Alvarez MD LABORATORY Final Result [facility] [address] [address], [place] [phone] * (ABNORMAL) BASIC METABOLIC PANEL (07/16/2019 3:20 AM CDT) [facility] GLUCOSE 106(H) 70 - 99 MG/DL 07/16/2019 3:57 AM CDT [facility] BUN 15 7 - 18 MG/DL 07/16/2019 3:57 AM CDT [facility] CREATININE S/P/B 0.83 0.55 - 1.02 MG/DL 07/16/2019 3:57 AM CDT [facility] SODIUM S/P/B 138 136 - 145 MMOL/L 07/16/2019 3:57 AM CDT [facility] POTASSIUM S/P/B 3.8 3.5 - 5.1 MMOL/L 07/16/2019 3:57 AM CDT [facility] CHLORIDE S/P/B 102 100 - 108 MMOL/L 07/16/2019 3:57 AM CDT [facility] CO2 30.3 21 - 32 MMOL/L 07/16/2019 3:57 AM CDT [facility] CALCIUM S/P/B 7.6(L) 8.5 - 10.1 MG/DL 07/16/2019 3:57 AM CDT [facility] ANION GAP 5.7 5 - 15 MMOL/L 07/16/2019 3:57 AM CDT [facility] BUN CREATININE RATIO 18.1 6 - 26 07/16/2019 3:57 AM T [facility] EGFR NON-AFR. AMER. 75(L) >90 ML/MIN/1.7 3 M2 07/16/2019 3:57 AM CDT [facility] EGFR AFR. AMER. 86(L) >90 ML/MIN/1.7 3 M2 07/16/2019 3:57 AM T [facility] Comment: NOTE: eGFR is not calculated for patients <18 years of age. This is an estimated GFR (CKD EPI) and should not be used for calculating drug doses. 07/16/2019 3:20 AM CDT us Shmuel Alvarez MD LABORATORY Final Result [facility] [address] [place] [address], [place] [phone] * (ABNORMAL) POCT glucose (07/15/2019 8:30 PM CDT) [facility] Signature GLUCOSE POC 335(H) 70 - 99 MG/DL 07/15/2019 8:37 PM CDT [facility] LAB ORDERS INTERFACE 07/15/2019 8:30 PM CDT Shmuel Alvarez MD POCT ORDERABLES - DEVICE Final R esult Performing Organization Address [facility] Co nc Phone Number [facility] LAB ORDERS INTERFACE US * (ABNORMAL) POCT glucose (07/15/2019 3:29 PM CDT) GLUCOSE POC 183(H) 70 - 99 MG/DL 07/15/2019 3:49 PM CDT [facility] LAB ORDERS INTERFACE 07/15/2019 3:29 PM CDT Shmuel Alvarez MD POCT ORDERABLES - DEVICE Final R esult Performing Organization Address [facility] Phone Number [facility] LAB ORDERS INTERFACE US * (ABNORMAL) POCT glucose (07/15/2019 11:22 AM CDT) GLUCOSE POC 139(H) 70 - 99 MG/DL 07/15/2019 1:01 PM CDT [facility] LAB ORDERS INTERFACE 07/15/2019 11:2 2 AM CDT Shmuel Alvarez MD POCT ORDERABLES - DEVICE Final R esult Performing Organization Address [facility] Phone Number [facility] LAB ORDERS INTERFACE US * (ABNORMAL) POCT glucose (07/15/2019 7:29 AM CDT) GLUCOSE POC 173(H) 70 - 99 MG/DL 07/15/2019 8:01 AM CDT [facility] LAB ORDERS INTERFACE 07/15/2019 7:29 AM CDT Shmuel Alvarez MD POCT ORDERABLES - DEVICE Final R esult Performing Organization Address [facility] Phone Number [facility] LAB ORDERS INTERFACE US * MAGNESIUM (07/15/2019 5:55 AM CDT) MAGNESIUM 2.2 1.8 - 2.4 MG/DL 07/15/2019 6:49 AM CDT [facility] 07/15/2019 5:55 AM CDT Shmuel Alvarez MD LABORATORY Final Result [facility] [address] [place] [address], [place] [phone] * (ABNORMAL) CBC W/DIFF AUTOMATED (07/15/2019 5:55 AM CDT) WBC 6.0 4.8 - 10.8 x10'3/uL 07/15/2019 6:39 AM CDT [facility] RBC 2.71(L) 4.10 - 5.10 x10'6/uL 07/15/2019 6:39 AM CDT [facility] HGB 7.7(L) 12.0 - 16.0 G/DL 07/15/2019 6:39 AM T [facility] HCT 25.1(L) 36 - 46 % 07/15/2019 6:39 AM T [facility] MCV 92.6 80 - 100 FL 07/15/2019 6:39 AM CDT [facility] MCH 28.4 26.0 - 34.0 PG 07/15/2019 6:39 AM T [facility] MCHC 30.7(L) 31.0 - 37.0 G/DL 07/15/2019 6:39 AM CDT [facility] RDW 16.6(H) 11.5 - 14.5 % 07/15/2019 6:39 AM CDT [facility] PLT 330 150 - 350 x10'3/uL 07/15/2019 6:39 AM CDT [facility] CBC COMMENT AUTOMATED RBC MORPHOLOGY AND PLATELET EVALUATION NORMAL 07/15/2019 6:39 AM CDT [facility] NEUTROPHILS % 66.6 50 - 70 % 07/15/2019 6:39 AM CDT [facility] LYMPHOCYTES % 19.7 18 - 42 % 07/15/2019 6:39 AM CDT [facility] MONOCYTES % 6.8 2.0 - 11.0 % 07/15/2019 6:39 AM CDT [facility] EOSINOPHILS 6.2(H) 1.0 - 3.0 % 07/15/2019 6:39 AM CDT [facility] BASOPHILS 0.7 0.0 - 1.0 % 07/15/2019 6:39 AM CDT [facility] ABS. NEUTROPHILS TOTAL 3.99 1.69 - 7.81 x10'3/uL 07/15/2019 6:39 AM T [facility] 07/15/2019 5:55 AM CDT Shmuel Alvarez MD LABORATORY Final Result [facility] [address] [place] [address], [place] [phone] * (ABNORMAL) BASIC METABOLIC PANEL (07/15/2019 5:55 AM CDT) [facility] Signature GLUCOSE 153(H) 70 - 99 MG/DL 07/15/2019 6:49 AM CDT [facility] BUN 18 7 - 18 MG/DL 07/15/2019 6:49 AM CDT [facility] CREATININE S/P/B 0.94 0.55 - 1.02 MG/DL 07/15/2019 6:49 AM CDT [facility] SODIUM S/P/B 140 136 - 145 MMOL/L 07/15/2019 6:49 AM CDT [facility] POTASSIUM S/P/B 3.5 3.5 - 5.1 MMOL/L 07/15/2019 6:49 AM T [facility] CHLORIDE S/P/B 103 100 - 108 MMOL/L 07/15/2019 6:49 AM CDT [facility] CO2 31.0 21 - 32 MMOL/L 07/15/2019 6:49 AM T [facility] CALCIUM S/P/B 8.1(L) 8.5 - 10.1 MG/DL 07/15/2019 6:49 AM T [facility] ANION GAP 6.0 5 - 15 MMOL/L 07/15/2019 6:49 AM T [facility] BUN CREATININE RATIO 19.1 6 - 26 07/15/2019 6:49 AM T [facility] EGFR NON-AFR. AMER. 64(L) >90 ML/MIN/1.7 3 M2 07/15/2019 6:49 AM T [facility] EGFR AFR. AMER. 74(L) >90 ML/MIN/1.7 3 M2 07/15/2019 6:49 AM T [facility] Comment: NOTE: eGFR is not calculated for patients <18 years of age. This is an estimated GFR (CKD EPI) and should not be used for calculating drug doses. 07/15/2019 5:55 AM CDT us Shmuel Alvarez MD LABORATORY Final Result [facility] [address] [place] [address], [place] [phone] * (ABNORMAL) POCT glucose (07/14/2019 8:42 PM CDT) [facility] Signature GLUCOSE POC 182(H) 70 - 99 MG/DL 07/14/2019 8:49 PM CDT [facility] LAB ORDERS INTERFACE 07/14/2019 8:42 PM CDT Shmuel Alvarez MD POCT ORDERABLES - DEVICE Final R esult Performing Organization Address City/[facility] Co de Phone Number [facility] LAB ORDERS INTERFACE US * (ABNORMAL) POCT glucose (07/14/2019 4:10 PM CDT) GLUCOSE POC 176(H) 70 - 99 MG/DL 07/15/2019 3:20 AM CDT [facility] LAB ORDERS INTERFACE 07/14/2019 4:10 PM CDT Shmuel Alvarez MD POCT ORDERABLES - DEVICE Final R esult Performing Organization Address [facility] Co de Phone Number [facility] LAB ORDERS INTERFACE US * (ABNORMAL) POCT glucose (07/14/2019 11:09 AM CDT) GLUCOSE POC 166(H) 70 - 99 MG/DL 07/14/2019 11:13 AM CDT [facility] LAB ORDERS INTERFACE 07/14/2019 11:0 9 AM CDT Shmuel Alvarez MD POCT ORDERABLES - DEVICE Final R esult Performing Organization Address [facility] Co de Phone Number [facility] LAB ORDERS INTERFACE US * (ABNORMAL) MAGNESIUM (07/14/2019 9:13 AM CDT) MAGNESIUM 1.7(L) 1.8 - 2.4 MG/DL 07/14/2019 10:12 AM CDT [facility] 07/14/2019 9:13 AM CDT Shmuel Alvarez MD LABORATORY Final Result Performing Organization Address City/[facility]/ZIP Co de Phone Number [facility] [address] [address], [place] [phone] * (ABNORMAL) CBC W/DIFF AUTOMATED (07/14/2019 9:13 AM CDT) WBC 6.9 4.8 - 10.8 x10'3/uL 07/14/2019 9:52 AM CDT [facility] RBC 2.70(L) 4.10 - 5.10 x10'6/uL 07/14/2019 9:52 AM CDT [facility] HGB 7.8(L) 12.0 - 16.0 G/DL 07/14/2019 9:52 AM T [facility] HCT 24.9(L) 36 - 46 % 07/14/2019 9:52 AM T [facility] MCV 92.2 80 - 100 FL 07/14/2019 9:52 AM CDT [facility] MCH 28.9 26.0 - 34.0 PG 07/14/2019 9:52 AM T [facility] MCHC 31.3 31.0 - 37.0 G/DL 07/14/2019 9:52 AM T [facility] RDW 16.7(H) 11.5 - 14.5 % 07/14/2019 9:52 AM T [facility] PLT 347 150 - 350 x10'3/uL 07/14/2019 9:52 AM T [facility] CBC COMMENT AUTOMATED RBC MORPHOLOGY AND PLATELET EVALUATION NORMAL 07/14/2019 9:52 AM T [facility] NEUTROPHILS % 70.8(H) 50 - 70 % 07/14/2019 9:52 AM T [facility] LYMPHOCYTES % 19.2 18 - 42 % 07/14/2019 9:52 AM T [facility] MONOCYTES % 5.4 2.0 - 11.0 % 07/14/2019 9:52 AM CDT [facility] EOSINOPHILS 4.2(H) 1.0 - 3.0 % 07/14/2019 9:52 AM CDT [facility] BASOPHILS 0.4 0.0 - 1.0 % 07/14/2019 9:52 AM CDT [facility] ABS. NEUTROPHILS TOTAL 4.85 1.69 - 7.81 x10'3/uL 07/14/2019 9:52 AM CDT [facility] 07/14/2019 9:13 AM CDT Shmuel Alvarez MD LABORATORY Final Result [facility] [address] [address], * (ABNORMAL) BASIC METABOLIC PANEL (07/14/2019 9:13 AM CDT) GLUCOSE 141(H) 70 - 99 MG/DL 07/14/2019 10:12 AM CDT [facility] BUN 23(H) 7 - 18 MG/DL 07/14/2019 10:12 AM CDT [facility] CREATININE S/P/B 1.05(H) 0.55 - 1.02 MG/DL 07/14/2019 10:12 AM CDT [facility] SODIUM S/P/B 139 136 - 145 MMOL/L 07/14/2019 10:12 AM CDT [facility] POTASSIUM S/P/B 3.5 3.5 - 5.1 MMOL/L 07/14/2019 10:12 AM CDT [facility] CHLORIDE S/P/B 101 100 - 108 MMOL/L 07/14/2019 10:12 AM CDT [facility] CO2 32.5(H) 21 - 32 MMOL/L 07/14/2019 10:12 AM CDT [facility] CALCIUM S/P/B 8.1(L) 8.5 - 10.1 MG/DL 07/14/2019 10:12 AM CDT [facility] ANION GAP 5.5 5 - 15 MMOL/L 07/14/2019 10:12 AM CDT [facility] BUN CREATININE RATIO 21.9 6 - 26 07/14/2019 10:12 AM T [facility] EGFR NON-AFR. AMER. 56(L) >90 ML/MIN/1.7 3 M2 07/14/2019 10:12 AM CDT [facility] EGFR AFR. AMER. 65(L) >90 ML/MIN/1.7 3 M2 07/14/2019 10:12 AM T [facility] Comment: NOTE: eGFR is not calculated for patients <18 years of age. This is an estimated GFR (CKD EPI) and should not be used for calculating drug doses. 07/14/2019 9:13 AM CDT us Shmuel Alvarez MD LABORATORY Final Result Performing Organization Address City/[facility]/ZIP Co de Phone Number [facility] [address] [address], [place] [phone] * (ABNORMAL) POCT glucose (07/14/2019 7:24 AM CDT) GLUCOSE POC 118(H) 70 - 99 MG/DL 07/14/2019 7:26 AM CDT [facility] ORDERS INTERFACE 07/14/2019 7:24 AM CDT us Shmuel Alvarez MD POCT ORDERABLES - DEVICE Final R esult [facility] LAB ORDERS INTERFACE US * (ABNORMAL) POCT glucose (07/13/2019 9:45 PM CDT) GLUCOSE POC 217(H) 70 - 99 MG/DL 07/13/2019 9:47 PM CDT [facility] ORDERS INTERFACE 07/13/2019 9:45 PM CDT Result [facility] Shmuel Alvarez MD POCT ORDERABLES - DEVICE Final R esult Performing Organization Address [facility] de Phone Number [facility] ORDERS INTERFACE US * (ABNORMAL) POCT glucose (07/13/2019 8:19 PM CDT) GLUCOSE POC >500(HH) 70 - 99 MG/DL 07/13/2019 8:25 PM CDT [facility] ORDERS INTERFACE 07/13/2019 8:19 PM CDT Result [facility] Shmuel Alvarez MD POCT ORDERABLES - DEVICE Final R [facility] Performing Organization Address [facility] Phone Number [facility] ORDERS INTERFACE US * (ABNORMAL) POCT glucose (07/13/2019 4:24 PM CDT) GLUCOSE POC 185(H) 70 - 99 MG/DL 07/13/2019 4:49 PM CDT [facility] ORDERS INTERFACE 07/13/2019 4:24 PM CDT Result [facility] Shmuel Alvarez MD POCT ORDERABLES - DEVICE Final R [facility] Performing Organization Address [facility] de Phone Number [facility] ORDERS INTERFACE US * CT ABD+PEL W CON (07/13/2019 12:51 PM CDT) Anatomical Region Laterality Modality Abdomen Computed Tomogra phy 07/13/2019 1:09 PM CDT Impressions 07/13/2019 1:38 PM CDT IMPRESSION: 1. ??Findings suggestive of a diarrheal state. 2. ??No bowel obstruction or visible areas of inflammation. 3. ??Cardiomegaly. ??Small pericardial effusion. 4. ??Partially imaged round potential fluid collection in the right breast measuring 4.5 cm. ??This could represent a chronic postoperative seroma or abscess. ??This could also potentially represent a partially imaged inferior portion of a breast implant although a similar finding is not seen in the left breast. ??Clinical correlation recommended (no comparisons/additional imaging examinations are available). 5. ??Very large 9.5 x 7.5 x 15 cm fluid collection within the subcutaneous fat of the anterior midline abdomen which demonstrates thin peripheral wall calcifications. ??There are underlying findings of prior hernia repair surgery in the anterior abdominal wall. ??This is most likely to represent a large chronic postoperative seroma. 6. ??Very large skin ulcer underlying the left ischial tuberosity. Interpreted By: Harlan Gallardo DO, 07/13/2019 1:09 PM Narrative 07/13/2019 1:38 PM CDT EXAMINATION: CT abdomen/pelvis with contrast HISTORY: Nodular, vomiting, and diarrhea. ??History of bilateral breast cancer status post bilateral malignant lumpectomy 6-7 years ago. COMPARISON: None. TECHNIQUE: Axial CT images of the abdomen and pelvis 100 mL of Isovue-370 given through the right antecubital fossa . Sagittal and coronal reformatted image sets. A dose lowering technique was used for this procedure, which may include, but is not limited to, dose reduction technique, automated exposure control, the use of degenerative reconstruction, and ALARA/image gently techniques. FINDINGS: Lower chest: There is a partially imaged round potential fluid collection in the right breast measuring 4.5 cm. ??This could represent an abscess or chronic seroma. ??This could also potentially represent a partially imaged inferior portion of a breast implant although a similar finding is not seen in the left breast. ??Clinical correlation recommended. There is mild bibasilar atelectasis. ??The heart is enlarged. ??There is a small pericardial effusion. ??Calcified subcarinal lymph nodes are noted. Upper abdomen: The liver is normal in size and contour. ??No evidence of hepatic mass. ??Small scattered benign hepatic calcifications are noted. ??The portal vein is patent. ??No cholelithiasis. ??No biliary ductal dilatation. ??No acute- appearing pancreatic abnormalities. ??There are calcified splenic granulomas. ??No adrenal masses. Kidneys: The kidneys enhance symmetrically. ??No hydronephrosis or perinephric stranding. ??No evidence of renal mass. Vascular: There is atherosclerotic disease of the abdominal aorta which remains normal caliber. ??No acute appearing vascular abnormalities. Bowel/mesentery: No ascites or free intraperitoneal air. ??No bowel obstruction. ??Fluid is seen throughout the small bowel and colon suggestive of a diarrheal state. ??There are surgical changes involving the cecum. ??No definite colonic or enteric inflammatory changes are identified. Pelvis: The urinary bladder is decompressed with a Kaplan catheter. ??The uterus appears normally sized for the patient's age. ??No adnexal masses. ??There are pelvic phleboliths. ??No free pelvic fluid. Lymph nodes: No abdominal or pelvic lymphadenopathy. Other: A very large skin ulcer is noted underlying the left ischial tuberosity. There is a very large fluid collection demonstrating peripheral calcification in the subcutaneous fat of the anterior midline abdomen measuring approximately 9.5 x 7.5 x 15 cm (TV by AP by CC). ??There are also findings of hernia repair surgery along the anterior abdomen. ??There are no herniated bowel loops. ??This is most likely related to chronic postoperative seroma formation. Osseous: There are multisite degenerative changes in the spine and pelvis. ??No acute appearing osseous abnormalities are identified. Procedure Note Harlan Gallardo DO - 07/13/2019 EXAMINATION: CT abdomen/pelvis with contrast HISTORY: Nodular, vomiting, and diarrhea. History of bilateral breast cancerstatus post bilateral malignant lumpectomy 6-7 years ago. COMPARISON: None. TECHNIQUE: Axial CT images of the abdomen and pelvis 100 mL of Isovue-370 giventhrough the right antecubital fossa . Sagittal and coronal reformattedimage sets. A dose lowering technique was used for this procedure, which may include,but is not limited to, dose reduction technique, automated exposurecontrol, the use of degenerative reconstruction, and ALARA/image gentlytechniques. FINDINGS: Lower chest: There is a partially imaged round potential fluid collectionin the right breast measuring 4.5 cm. This could represent an abscess orchronic seroma. This could also potentially represent a partially imagedinferior portion of a breast implant although a similar finding is notseen in the left breast. Clinical correlation recommended. There is mild bibasilar atelectasis. The heart is enlarged. There is asmall pericardial effusion. Calcified subcarinal lymph nodes are noted. Upper abdomen: The liver is normal in size and contour. No evidence ofhepatic mass. Small scattered benign hepatic calcifications are noted.The portal vein is patent. No cholelithiasis. No biliary ductaldilatation. No acute-appearing pancreatic abnormalities. There arecalcified splenic granulomas. No adrenal masses. Kidneys: The kidneys enhance symmetrically. No hydronephrosis orperinephric stranding. No evidence of renal mass. Vascular: There is atherosclerotic disease of the abdominal aorta whichremains normal caliber. No acute appearing vascular abnormalities. Bowel/mesentery: No ascites or free intraperitoneal air. No bowelobstruction. Fluid is seen throughout the small bowel and colonsuggestive of a diarrheal state. There are surgical changes involving thececum. No definite colonic or enteric inflammatory changes areidentified. Pelvis: The urinary bladder is decompressed with a Kaplan catheter. Theuterus appears normally sized for the patient's age. No adnexal masses.There are pelvic phleboliths. No free pelvic fluid. Lymph nodes: No abdominal or pelvic lymphadenopathy. Other: A very large skin ulcer is noted underlying the left ischialtuberosity. There is a very large fluid collection demonstrating peripheralcalcification in the subcutaneous fat of the anterior midline abdomenmeasuring approximately 9.5 x 7.5 x 15 cm (TV by AP by CC). There arealso findings of hernia repair surgery along the anterior abdomen. Thereare no herniated bowel loops. This is most likely related to chronicpostoperative seroma formation. Osseous: There are multisite degenerative changes in the spine and pelvis.No acute appearing osseous abnormalities are identified. IMPRESSION: 1. Findings suggestive of a diarrheal state. 2. No bowel obstruction or visible areas of inflammation. 3. Cardiomegaly. Small pericardial effusion. 4. Partially imaged round potential fluid collection in the right breastmeasuring 4.5 cm. This could represent a chronic postoperative seroma orabscess. This could also potentially represent a partially imagedinferior portion of a breast implant although a similar finding is notseen in the left breast. Clinical correlation recommended (nocomparisons/additional imaging examinations are available). 5. Very large 9.5 x 7.5 x 15 cm fluid collection within the subcutaneousfat of the anterior midline abdomen which demonstrates thin peripheralwall calcifications. There are underlying findings of prior hernia repairsurgery in the anterior abdominal wall. This is most likely to representa large chronic postoperative seroma. 6. Very large skin ulcer underlying the left ischial tuberosity. Interpreted By: Harlan Gallardo DO, 07/13/2019 1:09 PM Shmuel Alvarez MD CT Final Result * (ABNORMAL) POCT glucose (07/13/2019 11:09 AM CDT) GLUCOSE POC 157(H) 70 - 99 MG/DL 07/13/2019 12:34 PM CDT [facility] ORDERS INTERFACE 07/13/2019 11:0 9 AM CDT Shmuel Alvarez MD POCT ORDERABLES - DEVICE Final R esult Performing Organization Address City/[facility]/ZIP Co de Phone Number [facility] ORDERS INTERFACE US * (ABNORMAL) CULTURE URINE (07/13/2019 10:05 AM CDT) SPEC DESCRIPTION URINE CLEAN CATCH 07/13/2019 10:52 AM CDT [facility] SPECIAL REQUESTS NO SPECIAL REQUEST 07/13/2019 10:52 AM CDT [facility] CULTURE RESULT >100,000 COL/ML CRISELDA ALBICANS SUSCEPTIBILTY NOT ROUTINELY PERFORMED. SAVING ISOLATE FOR 5 DAYS. CONTACT MICROBIOLOGY DEPARTMENT IF FURTHER WORKUP IS INDICATED. (A) 07/15/2019 11:22 AM CDT [facility] URINE SPECIMEN OBTAINED BY CLEAN CATCH PROCEDURE / Unknown 07/13/2019 10:05 AM CDT 07/13/2019 10:51 AM CDT Shmuel Alvarez MD MICROBIOLOGY - GENERAL ORDERABLE S Final Result Performing Organization Address City/[facility]/ZIP Co de Phone Number [facility] [address] [place] [address], [place] [phone] [facility] [address] [place] [address], [place] [phone] * (ABNORMAL) URINALYSIS WI REFLEX TO CULTURE (07/13/2019 10:05 AM CDT) COLOR (U) DARK YELLOW 07/13/2019 10:45 AM CDT [facility] TRANSPARENCY CLOUDY 07/13/2019 10:45 AM CDT [facility] SPECIFIC GRAVITY (U) 1.020 1.002 - 1.030 07/13/2019 10:45 AM T [facility] U PH 5.0 4.5 - 8.0 07/13/2019 10:45 AM T [facility] LEUKOCYTES (U) 3+(A) NEGATIVE 07/13/2019 10:45 AM T [facility] NITRITES POSITIVE(A) NEGATIVE 07/13/2019 10:45 AM T [facility] PROTEIN (U) 3+(A) NEGATIVE 07/13/2019 10:45 AM T [facility] URINE GLUCOSE NEGATIVE NEGATIVE 07/13/2019 10:45 AM T [facility] KETONES MG/DL (U) NEGATIVE NEGATIVE 07/13/2019 10:45 AM T [facility] UROBILINOGEN 1.0(A) NORMAL EU/DL 07/13/2019 10:45 AM T [facility] BILIRUBIN (U) NEGATIVE NEGATIVE 07/13/2019 10:45 AM T [facility] BLOOD (U) 5+(A) NEGATIVE 07/13/2019 10:45 AM T [facility] WBC/HPF 100-200 /HPF 07/13/2019 10:45 AM T [facility] CULTURE & SENSITIVITY INDICATED? SPECIMEN SETUP FOR CULTURE 07/13/2019 10:45 AM CDT [facility] RBC/HPF 5-10 /HPF 07/13/2019 10:45 AM CDT [facility] EPI/HPF 0-5 /HPF 07/13/2019 10:45 AM CDT [facility] BACTERIA (U) 2+ /HPF 07/13/2019 10:45 AM CDT [facility] MUCUS 1+ 07/13/2019 10:45 AM CDT [facility] BUDDING YEAST 3+ /HPF 07/13/2019 10:45 AM CDT [facility] URINE SPECIMEN OBTAINED VIA [facility]INARY CATHETER / Unknown 07/13/2019 10:05 AM CDT Shmuel Alvarez MD URINE ORDERABLES Final Result Performing Organization Address City/[facility]/ZIP Co de Phone Number [facility] [address] [place] [address], [place] [phone] * (ABNORMAL) POCT glucose (07/13/2019 7:49 AM CDT) GLUCOSE POC 265(H) 70 - 99 MG/DL 07/13/2019 7:50 AM CDT [facility] ORDERS INTERFACE 07/13/2019 7:49 AM CDT Shmuel Alvarez MD POCT ORDERABLES - DEVICE Final R esult [facility] ORDERS INTERFACE US * (ABNORMAL) HEMOGLOBIN, GLYCOSYLATED (07/13/2019 5:10 AM CDT) HGB A1C 11.0(H) <5.7 % 07/13/2019 8:35 AM CDT [facility] Comment: ADA GUIDELINES 2010 5.7 TO 6.4% INCREASED RISK OF DIABETES > OR = 6.5% CONSISTENT WITH DIABETES TESTING PERFORMED AT [facility] [address] [place], [place] ??[address] 07/13/2019 5:10 AM CDT us Shmuel Alvarez MD LABORATORY Final Result Performing Organization Address City/[facility]/ZIP Co de Phone Number [facility] [address] [place] [address], [place] [phone] * MAGNESIUM (07/13/2019 5:10 AM CDT) MAGNESIUM 1.9 1.8 - 2.4 MG/DL 07/13/2019 7:41 AM CDT [facility] 07/13/2019 5:10 AM CDT us Shmuel Alvarez MD LABORATORY Final Result [facility] [address] [place] [address], [place] [phone] * (ABNORMAL) CBC W/DIFF AUTOMATED (07/13/2019 5:10 AM CDT) WBC 6.8 4.8 - 10.8 x10'3/uL 07/13/2019 7:47 AM CDT [facility] RBC 3.12(L) 4.10 - 5.10 x10'6/uL 07/13/2019 7:47 AM CDT [facility] HGB 8.8(L) 12.0 - 16.0 G/DL 07/13/2019 7:47 AM CDT [facility] HCT 28.8(L) 36 - 46 % 07/13/2019 7:47 AM CDT [facility] MCV 92.3 80 - 100 FL 07/13/2019 7:47 AM CDT [facility] MCH 28.2 26.0 - 34.0 PG 07/13/2019 7:47 AM CDT [facility] MCHC 30.6(L) 31.0 - 37.0 G/DL 07/13/2019 7:47 AM CDT [facility] RDW 16.7(H) 11.5 - 14.5 % 07/13/2019 7:47 AM CDT [facility] PLT 427(H) 150 - 350 x10'3/uL 07/13/2019 7:47 AM CDT [facility] CBC COMMENT AUTOMATED RBC MORPHOLOGY AND PLATELET EVALUATION NORMAL 07/13/2019 7:47 AM CDT [facility] NEUTROPHILS % 73.3(H) 50 - 70 % 07/13/2019 7:47 AM CDT [facility] LYMPHOCYTES % 16.7(L) 18 - 42 % 07/13/2019 7:47 AM CDT [facility] MONOCYTES % 6.0 2.0 - 11.0 % 07/13/2019 7:47 AM CDT [facility] EOSINOPHILS 3.7(H) 1.0 - 3.0 % 07/13/2019 7:47 AM CDT [facility] BASOPHILS 0.3 0.0 - 1.0 % 07/13/2019 7:47 AM CDT [facility] ABS. NEUTROPHILS TOTAL 4.99 1.69 - 7.81 x10'3/uL 07/13/2019 7:47 AM CDT [facility] 07/13/2019 5:10 AM CDT us Shmuel Alvarez MD LABORATORY Final Result [facility] [address] [place] [address], [place] [phone] * (ABNORMAL) BASIC METABOLIC PANEL (07/13/2019 5:10 AM CDT) [facility] GLUCOSE 240(H) 70 - 99 MG/DL 07/13/2019 7:41 AM T [facility] BUN 28(H) 7 - 18 MG/DL 07/13/2019 7:41 AM T [facility] CREATININE S/P/B 1.19(H) 0.55 - 1.02 MG/DL 07/13/2019 7:41 AM T [facility] SODIUM S/P/B 138 136 - 145 MMOL/L 07/13/2019 7:41 AM T [facility] POTASSIUM S/P/B 3.7 3.5 - 5.1 MMOL/L 07/13/2019 7:41 AM T [facility] CHLORIDE S/P/B 98(L) 100 - 108 MMOL/L 07/13/2019 7:41 AM T [facility] CO2 32.6(H) 21 - 32 MMOL/L 07/13/2019 7:41 AM [facility] CALCIUM S/P/B 9.0 8.5 - 10.1 MG/DL 07/13/2019 7:41 AM T [facility] ANION GAP 7.4 5 - 15 MMOL/L 07/13/2019 7:41 AM T [facility] BUN CREATININE RATIO 23.5 6 - 26 07/13/2019 7:41 AM T [facility] EGFR NON-AFR. AMER. 48(L) >90 ML/MIN/1.7 3 M2 07/13/2019 7:41 AM T [facility] EGFR AFR. AMER. 56(L) >90 ML/MIN/1.7 3 M2 07/13/2019 7:41 AM T [facility] Comment: NOTE: eGFR is not calculated for patients <18 years of age. This is an estimated GFR (CKD EPI) and should not be used for calculating drug doses. 07/13/2019 5:10 AM CDT Shmuel Alvarez MD LABORATORY Final Result Performing Organization Address City/[facility]/ZIP Co de Phone Number [facility] [address] [place] [phone], * (ABNORMAL) POCT glucose (07/12/2019 8:24 PM CDT) GLUCOSE POC 157(H) 70 - 99 MG/DL 07/12/2019 8:31 PM CDT [facility] ORDERS INTERFACE 07/12/2019 8:24 PM CDT Shmuel Alvarez MD POCT ORDERABLES - DEVICE Final R esult Performing Organization Address [facility] Co de Phone Number [facility] ORDERS INTERFACE US * (ABNORMAL) POCT glucose (07/12/2019 4:26 PM CDT) GLUCOSE POC 219(H) 70 - 99 MG/DL 07/12/2019 4:27 PM CDT [facility] ORDERS INTERFACE 07/12/2019 4:26 PM CDT Shmuel Alvarez MD POCT ORDERABLES - DEVICE Final R esult Performing Organization Address City/[facility]/ZIP Co de Phone Number [facility] ORDERS INTERFACE US * (ABNORMAL) POCT glucose (07/12/2019 11:35 AM CDT) GLUCOSE POC 164(H) 70 - 99 MG/DL 07/12/2019 11:39 AM CDT [facility] ORDERS INTERFACE 07/12/2019 11:3 5 AM CDT Shmuel Alvarez MD POCT ORDERABLES - DEVICE Final R esult Performing Organization Address City/[facility]/ZIP Co de Phone Number [facility] ORDERS INTERFACE US * (ABNORMAL) POCT glucose (07/12/2019 6:59 AM CDT) GLUCOSE POC 140(H) 70 - 99 MG/DL 07/12/2019 7:12 AM CDT [facility] ORDERS INTERFACE 07/12/2019 6:59 AM CDT us Shmuel Alvarez MD POCT ORDERABLES - DEVICE Final R esult Performing Organization Address [facility] Co de Phone Number [facility] ORDERS INTERFACE US * (ABNORMAL) POCT glucose (07/11/2019 8:03 PM CDT) GLUCOSE POC 188(H) 70 - 99 MG/DL 07/11/2019 8:16 PM CDT [facility] ORDERS INTERFACE 07/11/2019 8:03 PM CDT us Deyviopher Nina PRINT SUPPORT SPECIALIST POCT ORDERABLES - DEVICE Final Result Performing Organization Address [facility] Co de Phone Number [facility] ORDERS INTERFACE US * (ABNORMAL) POCT glucose (07/11/2019 4:17 PM CDT) GLUCOSE POC 118(H) 70 - 99 MG/DL 07/11/2019 4:22 PM CDT [facility] ORDERS INTERFACE 07/11/2019 4:17 PM CDT us Deyviopheric Wood PRINT SUPPORT SPECIALIST POCT ORDERABLES - DEVICE Final Result Performing Organization Address City/[facility]/ZIP Co de Phone Number [facility] ORDERS INTERFACE US * (ABNORMAL) POCT glucose (07/11/2019 11:22 AM CDT) GLUCOSE POC 296(H) 70 - 99 MG/DL 07/11/2019 11:31 AM CDT [facility] ORDERS INTERFACE 07/11/2019 11:2 2 AM CDT Ben Wood APRN POCT ORDERABLES - DEVICE Final Result [facility] ORDERS INTERFACE US * CK (CPK) (07/11/2019 7:40 AM CDT) CPK 74 26 - 192 U/L 07/11/2019 8:49 AM CDT [facility] 07/11/2019 7:40 AM CDT Fer Garrido MD LABORATORY Final Result Performing Organization Address City/[facility]/ZIP Co de Phone Number [facility] [address] [place] [address], * (ABNORMAL) POCT glucose (07/11/2019 7:34 AM CDT) GLUCOSE POC 188(H) 70 - 99 MG/DL 07/11/2019 7:37 AM CDT [facility] ORDERS INTERFACE 07/11/2019 7:34 AM CDT us Ben Wood APRN POCT ORDERABLES - DEVICE Final Result Performing Organization Address City/[facility]/ZIP Co de Phone Number [facility] ORDERS INTERFACE US * (ABNORMAL) POCT glucose (07/10/2019 7:55 PM CDT) GLUCOSE POC 294(H) 70 - 99 MG/DL 07/10/2019 7:56 PM CDT [facility] ORDERS INTERFACE 07/10/2019 7:55 PM CDT Fer Garrido MD POCT ORDERABLES - DEVICE Final Result [facility] ORDERS INTERFACE US * (ABNORMAL) POCT glucose (07/10/2019 4:09 PM CDT) GLUCOSE POC 346(H) 70 - 99 MG/DL 07/10/2019 4:11 PM CDT [facility] ORDERS INTERFACE 07/10/2019 4:09 PM CDT Fer Garrido MD POCT ORDERABLES - DEVICE Final Result Performing Organization Address [facility] Phone Number [facility] ORDERS INTERFACE US * (ABNORMAL) POCT glucose (07/10/2019 11:17 AM CDT) GLUCOSE POC 280(H) 70 - 99 MG/DL 07/10/2019 11:29 AM CDT [facility] ORDERS INTERFACE 07/10/2019 11:1 7 AM CDT Fer Garrido MD POCT ORDERABLES - DEVICE Final Result Performing Organization Address [facility] Phone Number [facility] ORDERS INTERFACE US * (ABNORMAL) POCT glucose (07/10/2019 7:08 AM CDT) GLUCOSE POC 177(H) 70 - 99 MG/DL 07/10/2019 7:27 AM CDT [facility] ORDERS INTERFACE 07/10/2019 7:08 AM CDT Fer Garrido MD POCT ORDERABLES - DEVICE Final Result Performing Organization Address [facility] de Phone Number [facility] ORDERS INTERFACE US * (ABNORMAL) CBC W/DIFF AUTOMATED (07/10/2019 5:40 AM CDT) WBC 6.3 4.8 - 10.8 x10'3/uL 07/10/2019 7:03 AM CDT [facility] RBC 2.72(L) 4.10 - 5.10 x10'6/uL 07/10/2019 7:03 AM CDT [facility] HGB 7.8(L) 12.0 - 16.0 G/DL 07/10/2019 7:03 AM CDT [facility] HCT 24.9(L) 36 - 46 % 07/10/2019 7:03 AM CDT [facility] MCV 91.5 80 - 100 FL 07/10/2019 7:03 AM CDT [facility] MCH 28.7 26.0 - 34.0 PG 07/10/2019 7:03 AM CDT [facility] MCHC 31.3 31.0 - 37.0 G/DL 07/10/2019 7:03 AM T [facility] RDW 16.4(H) 11.5 - 14.5 % 07/10/2019 7:03 AM T [facility] PLT 395(H) 150 - 350 x10'3/uL 07/10/2019 7:03 AM T [facility] CBC COMMENT AUTOMATED RBC MORPHOLOGY AND PLATELET EVALUATION NORMAL 07/10/2019 7:03 AM T [facility] NEUTROPHILS % 64.1 50 - 70 % 07/10/2019 7:03 AM T [facility] LYMPHOCYTES % 24.2 18 - 42 % 07/10/2019 7:03 AM T [facility] MONOCYTES % 7.8 2.0 - 11.0 % 07/10/2019 7:03 AM T [facility] EOSINOPHILS 3.3(H) 1.0 - 3.0 % 07/10/2019 7:03 AM T [facility] BASOPHILS 0.6 0.0 - 1.0 % 07/10/2019 7:03 AM T [facility] ABS. NEUTROPHILS TOTAL 4.04 1.69 - 7.81 x10'3/uL 07/10/2019 7:03 AM [facility] 07/10/2019 5:40 AM CDT Fer Garrido MD LABORATORY Final Result [facility] [address] [place] [address], * (ABNORMAL) BASIC METABOLIC PANEL (07/10/2019 5:40 AM CDT) [facility] GLUCOSE 153(H) 70 - 99 MG/DL 07/10/2019 7:26 AM CDT [facility] BUN 20(H) 7 - 18 MG/DL 07/10/2019 7:26 AM T [facility] CREATININE S/P/B 0.75 0.55 - 1.02 MG/DL 07/10/2019 7:26 AM T [facility] SODIUM S/P/B 140 136 - 145 MMOL/L 07/10/2019 7:26 AM T [facility] POTASSIUM S/P/B 4.0 3.5 - 5.1 MMOL/L 07/10/2019 7:26 AM CDT [facility] CHLORIDE S/P/B 101 100 - 108 MMOL/L 07/10/2019 7:26 AM T [facility] CO2 33.5(H) 21 - 32 MMOL/L 07/10/2019 7:26 AM T [facility] CALCIUM S/P/B 8.8 8.5 - 10.1 MG/DL 07/10/2019 7:26 AM T [facility] ANION GAP 5.5 5 - 15 MMOL/L 07/10/2019 7:26 AM T [facility] BUN CREATININE RATIO 26.7(H) 6 - 26 07/10/2019 7:26 AM T [facility] EGFR NON-AFR. AMER. 84(L) >90 ML/MIN/1.7 3 M2 07/10/2019 7:26 AM T [facility] EGFR AFR. AMER. >90 >90 ML/MIN/1.7 3 M2 07/10/2019 7:26 AM CDT [facility] Comment: NOTE: eGFR is not calculated for patients <18 years of age. This is an estimated GFR (CKD EPI) and should not be used for calculating drug doses. 07/10/2019 5:40 AM CDT Fer Garrido MD LABORATORY Final Result Performing Organization Address [facility] Co de Phone Number [facility] [address] [place] [address], * (ABNORMAL) POCT glucose (07/10/2019 12:23 AM CDT) Pathologist [facility] GLUCOSE POC 182(H) 70 - 99 MG/DL 07/10/2019 12:26 AM CDT [facility] ORDERS INTERFACE 07/10/2019 12:2 3 AM CDT Fer aGrrido MD POCT ORDERABLES - DEVICE Final Result Performing Organization Address [facility] de Phone Number [facility] ORDERS INTERFACE US * CLOSTRIDIUM DIFFICILE (07/09/2019 11:08 PM CDT) [facility] MOLECULAR ASSAY NEGATIVE NEGATIVE 07/10/2019 3:09 AM CDT [facility] Comment: NOTE: C. difficile molecular tests are highly sensitive. ??Empiric therapy for patients with diarrhea and negative C. difficile test should be avoided. ?? Submission of more than one specimen within 7 days is not recommended. ?? Molecular tests for C. difficile are highly sensitive and a negative result does not need to be confirmed by a second specimen. STOOL SPECIMEN / Unknown 07/09/2019 11:08 PM CDT Dorene Loyola MD BODY FLUIDS AND STOOLS IAN NIELSEN Final Result Performing Organization Address [facility]/ZIP Co de Phone Number [facility] [address] [place] [address], [place] [phone] documented in this encounter Visit Diagnoses Diagnosis Ulcer of lower limb, left, limited to breakdown of skin (CMS/HCC HHS/HCC)- Primary documented in this encounter Administered Medications Inactive Administered Medications - up to 3 most recent administrations Medication Order MAR Action Action Date Dose Rate Site acetaminophen (TYLENOL) tablet 650 mg 650 mg, Oral, Every 4 hours PRN, Mild pain (Scale 1 - 3), Starting on Mon07/09/19 at 2119, Until Mon07/16/19 at 1712, Maximum dose of acetaminophen is 4000 mg from all sources in 24 hours. Given 07/12/2019 10:47 AM CDT 650 mg Given 07/11/2019 7:54 PM CDT 650 mg Given 07/11/2019 11:36 AM CDT 650 mg aspirin tablet 325 mg 325 mg, Oral, Daily, First dose on Mon07/10/19 at 0900, Until Discontinued Given 07/16/2019 8:05 AM CDT 325 mg Given 07/15/2019 8:25 AM CDT 325 mg Given 07/14/2019 8:06 AM CDT 325 mg atorvastatin (LIPITOR) tablet 40 mg 40 mg, Oral, Daily, First dose on Mon07/10/19 at 0900, Until Discontinued Given 07/16/2019 8:05 AM CDT 40 mg Given 07/15/2019 8:25 AM CDT 40 mg Given 07/14/2019 8:06 AM CDT 40 mg cefTRIAXone (ROCEPHIN) 1 g in sterile water 10 mL IV 1 g, Intravenous, at 120 mL/hr, Every 24 hours, First dose on Mon07/14/19 at 1000, Until Discontinued Given 07/15/2019 10:05 AM CDT 1 g 120 m L/hr Given 07/14/2019 9:19 AM CDT 1 g 120 mL/hr chlorthalidone (HYGROTEN) tablet 25 mg 25 mg, Oral, Daily, First dose on Mon07/10/19 at 0900, Until Discontinued Given 07/16/2019 8:05 AM CDT 25 mg Given 07/15/2019 8:25 AM CDT 25 mg Given 07/14/2019 8:06 AM CDT 25 mg collagenase (SANTYL) ointment Topical, Daily, First dose on Mon07/10/19 at 0900, Until Discontinued Given 07/16/2019 1:07 PM CDT Given 07/15/2019 10:06 AM CDT Given 07/14/2019 8:09 AM CDT DAPTOmycin (CUBICIN) 625 mg in sodium chloride 0.9 % 100 mL IVPB 625 mg (rounded from 624 mg = 10 mg/kg ? 62.4 kg Adjusted weight), Intravenous, Administer over 30 Minutes, Every 24 hours, 8 doses, First dose on Mon07/10/19 at 1500, Last dose on Mon07/17/19 at 1500, Through 07/16 New Bag 07/16/2019 2:43 PM CDT 625 mg 200 mL/hr New Bag 07/15/2019 3:25 PM CDT 625 mg 200 mL/hr New Bag 07/14/2019 3:07 PM CDT 625 mg 200 mL/hr docusate sodium (COLACE) capsule 100 mg 100 mg, Oral, 2 times daily, First dose on Mon07/09/19 at 2145, Until Discontinued Given 07/12/2019 8:27 PM CDT 100 mg Given 07/10/2019 9:12 PM CDT 100 mg famotidine (PEPCID) tablet 20 mg 20 mg, Oral, Every 12 hours scheduled (2 times per day), First dose on Mon07/09/19 at 2145, Until Discontinued Given 07/10/2019 7:39 AM CDT 20 mg Given 07/09/2019 10:57 PM CDT 20 mg fluconazole (DIFLUCAN) IVPB 400 mg 400 mg, Intravenous, at 200 mL/hr, Every 24 hours, First dose on Mon07/15/19 at 1200, Until Discontinued, Dose is 2 bags of 200 mg each= 400 mg total New Bag 07/16/2019 11:22 AM CDT 400 mg 200 mL/hr New Bag 07/15/2019 12:20 PM CDT 400 mg 200 mL/hr gabapentin (NEURONTIN) capsule 300 mg 300 mg, Oral, 3 times daily, First dose on Mon07/10/19 at 0900, Until Discontinued Given 07/16/2019 4:17 PM CDT 300 mg Given 07/16/2019 8:05 AM CDT 300 mg Given 07/15/2019 8:32 PM CDT 300 mg heparin (porcine) injection 5,000 Units 5,000 Units, Subcutaneous, Every 12 hours scheduled (2 times per day), First dose on Mon07/09/19 at 2145, Until Discontinued Given 07/16/2019 8:05 AM CDT 5,000 Units Left Lower Abdomen Given 07/15/2019 8:31 PM CDT 5,000 Units L eft Lower Abdomen Given 07/15/2019 8:25 AM CDT 5,000 Units R ight Lower Abdomen insulin glargine (LANTUS) injection 15 Units 15 Units, Subcutaneous, Nightly at bedtime, First dose on Mon07/10/19 at 2100, Until Discontinued Given 07/15/2019 8:31 PM CDT 15 Units Right Lower Abdomen Given 07/14/2019 8:43 PM CDT 15 Units Ri ght Lower Abdomen Given 07/13/2019 8:19 PM CDT 15 Units Le ft Arm insulin lispro (HUMALOG) injection 0-16 Units 0-16 Units, Subcutaneous, 3 times daily before meals, First dose on Mon07/10/19 at 1645, Until Discontinued, Blood Glucose (USUAL Dosing): [Less than 70:? Initiate Hypoglycemia Standing Orders] [71-140: ? 0 units] [141-180:? 4 units] [181-220:? 6 units] [221-260:? 8 units] [261-300:? 10 units] [301-350:? 12 units] [351-400:? 14 units] [Greater than 400:? 16 units and Call Physician] Given 07/16/2019 4:53 PM CDT 4 Units Left Arm Given 07/16/2019 11:21 AM CDT 6 Units L eft Arm Given 07/16/2019 8:04 AM CDT 4 Units Le ft Arm insulin lispro (HUMALOG) injection 0-8 Units 0-8 Units, Subcutaneous, Nightly at bedtime, First dose on Mon07/10/19 at 2100, Until Discontinued, Blood Glucose (USUAL Dosing): [Less than 70:? Initiate Hypoglycemia Standing Orders] [71-180:? 0 units] [181-220:? 3 units] [221-260:? 4 units] [261-300:? 5 units] [301-350:? 6 units] [351-400:? 7 units] [Greater than 400:? 8 units and Call Physician] Given 07/15/2019 8:42 PM CDT 6 Units Left Arm Given 07/14/2019 8:48 PM CDT 3 Units Le ft Upper Abdomen Given 07/13/2019 8:28 PM CDT 8 Units Ri ght Lower Abdomen iopamidol (ISOVUE-370) 76 % injection 100 mL 100 mL, Intravenous, IMG once as needed, Contrast, 1 dose, Starting on 07/13/19 at 1200, Until 07/13/19 at 1225 Given 07/13/2019 12:25 PM CDT 100 mLs levothyroxine (SYNTHROID) tablet 50 mcg 50 mcg, Oral, Daily (levothyroxine), First dose on Mon07/10/19 at 0800, Until Discontinued, Avoid iron, calcium, and antacids within 4 hours of administration. Given 07/16/2019 5:37 AM CDT 5 0 mcg Given 07/15/2019 6:00 AM CDT 50 mcg Given 07/14/2019 6:25 AM CDT 50 mcg lidocaine-prilocaine (EMLA) cream Topical, As needed, Mild pain (Scale 1 - 3), 30 minutes prior to IV attempts, Starting on Mon07/09/19 at 2119, Until Mon07/16/19 at 1712, Apply 60 minutes prior to procedure loperamide (IMODIUM) capsule 2 mg 2 mg, Oral, 4 times daily PRN, Diarrhea, Starting on 07/13/19 at 0838, Until Mon07/16/19 at 1712 Given 07/13/2019 4:27 PM CDT 2 mg Given 07/13/2019 8:56 AM CDT 2 mg magnesium sulfate IVPB 2 g 2 g, Intravenous, at 25 mL/hr, Once, 1 dose, On 07/14/19 at 1245 New Bag 07/14/2019 1:06 PM CDT 2 g 2 5 mL/hr pantoprazole EC (PROTONIX) tablet 40 mg 40 mg, Oral, Daily, First dose on Mon07/10/19 at 0900, Until Discontinued, Do not break, chew, or crush. Given 07/16/2019 8:05 AM CDT 40 mg Given 07/15/2019 8:25 AM CDT 40 mg Given 07/14/2019 8:06 AM CDT 40 mg sodium chloride 0.9% infusion at 75 mL/hr, Intravenous, Continuous, Starting on 07/13/19 at 0900, Until 07/16/19 at 1025 New Bag 07/15/2019 8:42 PM CDT 75 mL/hr New Bag 07/14/2019 3:07 PM CDT 75 mL/hr New Bag 07/14/2019 2:00 AM CDT 75 mL/hr documented in this encounter Active and Recently Administered Medications Times are shown in CDT. Scheduled Medication Order 07/14/2019 07/15/2019 07/16/2019 aspirin tablet 325 mg 325 mg, Oral, Daily, First dose on Mon07/10/19 at 0900, Until Discontinued 805 (Given - Provider: Jaylin Veliz RN) 08 (Given - Provider: Jodi Asif RN) 08 (Given - Provider: Jodi Asif RN) atorvastatin (LIPITOR) tablet 40 mg 40 mg, Oral, Daily, First dose on Mon07/10/19 at 0900, Until Discontinued 805 (Given - Provider: Jaylin Veliz RN) 08 (Given - Provider: Jodi Asif RN) 0805 (Given - Provider: Jodi Asif RN) cefTRIAXone (ROCEPHIN) 1 g in sterile water 10 mL IV (CANCELED) 1 g, Intravenous, at 120 mL/hr, Every 24 hours, First dose on Mon07/14/19 at 1000, Until Discontinued 918 (Given - Provider: Jaylin Veliz RN) 1005 (Given - Provider: Jodi Asif, SPENCER) chlorthalidone (HYGROTEN) tablet 25 mg 25 mg, Oral, Daily, First dose on Mon07/10/19 at 0900, Until Discontinued 805 (Given - Provider: Jaylin Veliz RN) 0825 (Given - Provider: Jodi Asif RN) 08 (Given - Provider: Jodi Asif RN) collagenase (SANTYL) ointment Topical, Daily, First dose on Mon07/10/19 at 0900, Until Discontinued 0809 (Given - Provider: Jaylin Veliz RN) 1006 (Given - Provider: Jodi Asif RN) 1307 (Given - Provider: Jodi Asif RN) DAPTOmycin (CUBICIN) 625 mg in sodium chloride 0.9 % 100 mL IVPB 625 mg (rounded from 624 mg = 10 mg/kg ? 62.4 kg Adjusted weight), Intravenous, Administer over 30 Minutes, Every 24 hours, 8 doses, First dose on Mon07/10/19 at 1500, Last dose on Mon07/17/19 at 1500, Through 07/16 1507 (New Bag - Provider: Jaylin Veliz RN)1540 (Infusion Stop Time - Provider: Jaylin Veliz RN) 1525 (New Bag - Provider: Jodi Asif RN)1629 (Infusion Stop Time - Provider: Jodi Asif RN) 1443 (New Bag - Provider: Jodi Asif RN)1525 (Infusion Stop Time - Provider: Jodi Asif RN) fluconazole (DIFLUCAN) IVPB 400 mg 400 mg, Intravenous, at 200 mL/hr, Every 24 hours, First dose on Mon07/15/19 at 1200, Until Discontinued, Dose is 2 bags of 200 mg each= 400 mg total 1220 (New Bag - Provider: Jodi Asif RN)1400 (Infusion Stop Time - Provider: Jodi Asif RN) 1122 (New Bag - Provider: Jodi Asif RN)1225 (Infusion Stop Time - Provider: Jodi Asif RN) gabapentin (NEURONTIN) capsule 300 mg 300 mg, Oral, 3 times daily, First dose on Mon07/10/19 at 0900, Until Discontinued 08 (Given - Provider: Jaylin Veliz RN)1504 (Given - Provider: Jaylin Veliz RN)2043 (Given - Provider: Brandy Altamirano RN) 0825 (Given - Provider: Jodi Asif RN)1527 (Given - Provider: Jodi Asif RN)203 (Given - Provider: Sharon Mathis RN) 0805 (Given - Provider: Jodi Asif RN)1617 (Given - Provider: Jodi Asif RN) heparin (porcine) injection 5,000 Units(Linked Group 1) 5,000 Units, Subcutaneous, Every 12 hours scheduled (2 times per day), First dose on Mon07/09/19 at 2145, Until Discontinued 805 (Given - Provider: Jaylin Veliz RN)2042 (Given - Provider: Brandy Altamirano, SPENCER) 0825 (Given - Provider: Jodi Asif RN)2030 (Given - Provider: Sharon Mathis, SPENCER) 08 (Given - Provider: Jodi Asif RN) insulin glargine (LANTUS) injection 15 Units 15 Units, Subcutaneous, Nightly at bedtime, First dose on Mon07/10/19 at 2100, Until Discontinued 2042 (Given - Provider: Brandy Altamirano, SPENCER) 2030 (Given - Provider: Sharon Mathis, SPENCER) insulin lispro (HUMALOG) injection 0-16 Units(Linked Group 2) 0-16 Units, Subcutaneous, 3 times daily before meals, First dose on Mon07/10/19 at 1645, Until Discontinued, Blood Glucose (USUAL Dosing): [Less than 70:? Initiate Hypoglycemia Standing Orders] [71-140: ? 0 units] [141-180:? 4 units] [181-220:? 6 units] [221-260:? 8 units] [261-300:? 10 units] [301-350:? 12 units] [351-400:? 14 units] [Greater than 400:? 16 units and Call Physician] 0726 (Not Given - Provider: Jaylin Veliz RN - Reason: Order parameters not met)1134 (Given - Provider: Jaylin Veliz RN)1632 (Given - Provider: Jaylin Veliz RN) 0825 (Given - Provider: Jodi Asif RN)112 (Not Given - Provider: Jodi Asif RN - Reason: Order parameters not met)1645 (Given - Provider: Jodi Asif RN) 08 (Given - Provider: Jodi Asif RN)112 (Given - Provider: Jodi Asif RN)165 (Given - Provider: Jodi Asif, RN) insulin lispro (HUMALOG) injection 0-8 Units(Linked Group 2) 0-8 Units, Subcutaneous, Nightly at bedtime, First dose on Mon07/10/19 at 2100, Until Discontinued, Blood Glucose (USUAL Dosing): [Less than 70:? Initiate Hypoglycemia Standing Orders] [71-180:? 0 units] [181-220:? 3 units] [221-260:? 4 units] [261-300:? 5 units] [301-350:? 6 units] [351-400:? 7 units] [Greater than 400:? 8 units and Call Physician] 2047 (Given - Provider: Brandy Altamirano RN) 2041 (Given - Provider: Sharon Mathis, SPENCER) levothyroxine (SYNTHROID) tablet 50 mcg 50 mcg, Oral, Daily (levothyroxine), First dose on Mon07/10/19 at 0800, Until Discontinued, Avoid iron, calcium, and antacids within 4 hours of administration. 0625 (Given - Provider: Brandy Altamirano, SPENCER) 0600 (Given - Provider: Brandy Altamirano, RN) 0537 (Given - Provider: Sharon Mathis, SPENCER) magnesium sulfate IVPB 2 g (COMPLETED) 2 g, Intravenous, at 25 mL/hr, Once, 1 dose, On 07/14/19 at 1245 1306 (New Bag - Provider: Jaylin Veliz, SPENCER)1506 (Infusion Stop Time - Provider: Jaylin Veliz, SPENCER) pantoprazole EC (PROTONIX) tablet 40 mg 40 mg, Oral, Daily, First dose on Mon07/10/19 at 0900, Until Discontinued, Do not break, chew, or crush. 0806 (Given - Provider: Jaylin Veliz RN) 0825 (Given - Provider: Jodi Asif, SPENCER) 0805 (Given - Provider: Jodi Asif, RN) Continuous Medication Order 07/14/2019 07/15/2019 07/16/2019 sodium chloride 0.9% infusion (CANCELED) at 75 mL/hr, Intravenous, Continuous, Starting on 07/13/19 at 0900, Until Mon07/16/19 at 1025 0200 (New Bag - Provider: Brandy Altamirano, SPENCER)1506 (Infusion Stop Time - Provider: Jaylin Veliz, SPENCER)150 (New Bag - Provider: Jaylin Veliz RN) 2041 (New Bag - Provider: Sharon Mathis RN) PRN Medication Order 07/14/2019 07/15/2019 07/16/2019 acetaminophen (TYLENOL) tablet 650 mg 650 mg, Oral, Every 4 hours PRN, Mild pain (Scale 1 - 3), Starting on Mon07/09/19 at 2119, Until Mon07/16/19 at 1712, Maximum dose of acetaminophen is 4000 mg from all sources in 24 hours. lidocaine-prilocaine (EMLA) cream Topical, As needed, Mild pain (Scale 1 - 3), 30 minutes prior to IV attempts, Starting on Mon07/09/19 at 2119, Until Mon07/16/19 at 171, Apply 60 minutes prior to procedure loperamide (IMODIUM) capsule 2 mg 2 mg, Oral, 4 times daily PRN, Diarrhea, Starting on 07/13/19 at 0838, Until Mon07/16/19 at 1712 Linked Groups Order Group 1: heparin (porcine) injection 5,000 UnitsJump to med 5,000 Units, Subcutaneous, Every 12 hours scheduled (2 times per day), First dose on Mon07/09/19 at 2145, Until Discontinued And Moderate Risk for VTE (COMPLETED) Group 2: insulin lispro (HUMALOG) injection 0-16 UnitsJump to med 0-16 Units, Subcutaneous, 3 times daily before meals, First dose on Mon07/10/19 at 1645, Until Discontinued, Blood Glucose (USUAL Dosing): [Less than 70:? Initiate Hypoglycemia Standing Orders] [71-140: ? 0 units] [141-180:? 4 units] [181-220:? 6 units] [221-260:? 8 units] [261-300:? 10 units] [301- 350:? 12 units] [351-400:? 14 units] [Greater than 400:? 16 units and Call Physician] And insulin lispro (HUMALOG) injection 0-8 UnitsJump to med 0-8 Units, Subcutaneous, Nightly at bedtime, First dose on Mon07/10/19 at 2100, Until Discontinued, Blood Glucose (USUAL Dosing): [Less than 70:? Initiate Hypoglycemia Standing Orders] [71-180:? 0 units] [181-220:? 3 units] [221-260:? 4 units] [261-300:? 5 units] [301-350:? 6 units] [351-400:? 7 units] [Greater than 400:? 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
--- OUTSIDE RECORDS SUMMARY | 2024-02-26 21:24 | XMS_ITS | Encounter Summary ---
Author Organization [facility] Address [address] [place] [address]. [place] [address] [place] [address] Care Team Providers Care Furniture Polisher Name Role Phone Damon Swanson MD Unavailable [phone] Don Branham MD Primary Care Provider [phone] Encounter Details Date Type Department Care Team (Latest Contact Info) Description 07/09/2019 Travel Social History Tobacco Use Types Packs/Day [...] as of this encounter Functional Status * Question Answer Date of Assessment Author Status Do you have serious difficulty walking or climbing stairs? Yes 07/09/2019 9:27 PM CDT eK Holden NICHOLS Active * Question Answer Date of Assessment Author Status Do you have difficulty dressing or bathing? Yes 07/09/2019 9:27 PM CDT Sandor Holden NICHOLS Active Because of a physical, mental, or emotional condition, do you have difficulty doing errands alone such as visiting a doctor's office or shopping? Yes 07/09/2019 9:27 PM CDT Ke Holden NICHOLS Active * RETIRED Are you deaf or do you have serious difficulty hearing Answer Date of Assessment Author Status No 06/29/2019 12:55 PM CDT Acti ve * RETIRED Are you blind or do you have serious difficulty seeing, even when wearing glasses? Answer Date of Assessment Author Status No 06/29/2019 12:55 PM CDT Acti ve * Do you have serious difficulty walking or climbing stairs? Answer Date of Assessment Author Status Yes 06/29/2019 12:55 PM CDT Loree Chappell RN Active * Do you have difficulty dressing or bathing? Answer Date of Assessment Author Status Yes 06/29/2019 12:55 PM CDT Loree Chappell RN Active * Because of a physical, mental, or emotional condition, do you have difficulty doing errands alone such as visiting a doctor's office or shopping? Answer Date of Assessment Author Status Yes 06/29/2019 12:55 PM CDT Loree Chappell RN Active documented as of this encounter Mental Status * Question Answer Entry Date Author Status Because of a physical, mental, or emotional condition, do you have serious difficulty concentrating, remembering, or making decisions? No 07/09/2019 9:27 PM CDT Ivelisse Holden, NICHOLS Active * Because of a physical, mental, or emotional condition, do you have serious difficulty concentrating, remembering, or making decisions? Answer Entry Date Author Status Yes 06/29/2019 12:55 PM CDT Loree Chappell RN Active documented in this encounter Plan of Treatment Not on file documented as of this encounter Visit Diagnoses Not on filedocumented in this encounter Additional Health Concerns Infection Onset Date Last Indicated Resolved Time MRSA Comment:MRSA Blood Identified 06/28/2019 06/28/2019 07/01/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 07/08/2019 07/08/2019 documented as of this encounter Care Teams Furniture Polisher Relationship Specialty Start Date End Date Don Branham MD [address] [place] [address] PCP - General EMERGENCY MEDICINE 05/10/19 Damon Swanson MD INTERNAL MEDICINE 12/10/18 documented as of this encounter
--- OUTSIDE RECORDS SUMMARY | 2024-02-26 21:24 | XMS_ITS | Encounter Summary ---
Author Organization [facility] Address [address] [place] [address]. [place] [address] [place] [address] Care Team Providers Care Coil Wrapper Name Role Phone Damon Swanson MD Unavailable [phone] Don Branham MD Primary Care Provider [phone] Encounter Details Date Type Department Care Team (Late st Contact Info) Description 07/17/2019 Orders Only [facility] [address] [place] [address] Ben Wood, SAW SETTER [address] [place], [place] [id number] [id number] (Work) Social History Tobacco Use Types Packs/Day Years [...] documented as of this encounter Visit Diagnoses Diagnosis Wound, open, buttock- Primary Open wound of buttock, without mention of complication documented in this encounter Additional Health Concerns Infection Onset Date Last Indicated Resolved Time MRSA Comment:MRSA Blood Identified 06/28/2019 06/28/2019 07/01/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 07/08/2019 07/08/2019 documented as of this encounter Care Teams Coil Wrapper Relationship Specialty Start Date End Date Don Branham MD [address] [place] [address] PCP - General EMERGENCY MEDICINE 05/10/19 Damon Swanson MD INTERNAL MEDICINE 12/10/18 documented as of this encounter
--- OUTSIDE RECORDS SUMMARY | 2024-02-26 21:24 | XMS_ITS | Encounter Summary ---
Author Organization [facility] Address [address] [place] [address]. [place] [address] [place] [address] Care Team Providers Care Bilingual Trainer Name Role Phone Damon Swanson MD Unavailable [phone] Don Branham MD Primary Care Provider [phone] Encounter Details Date Type Department Care Team (Latest Contact Info) Description 07/16/2019 Travel Social History Tobacco Use Types Packs/Day [...] have Coronavirus / COVID-19? No / Unsure 07/16/2019 6:42 PM CDT documented as of this encounter Functional Status * Question Answer Date of Assessment Author Status Do you have serious difficulty walking or climbing stairs? Yes 07/16/2019 10:31 PM CDT Eloisa Chaidez, RN Aly alberts * Question Answer Date of Assessment Author Status Do you have difficulty dressing or bathing? Yes 07/16/2019 10:31 PM CDT Eloisa Chaidez R N Active Because of a physical, mental, or emotional condition, do you have difficulty doing errands alone such as visiting a doctor's office or shopping? Yes 07/16/2019 10:31 PM CDT Eloisa Chaidez RN Act izabella * RETIRED Are you deaf or do you have serious difficulty hearing Answer Date of Assessment Author Status No 07/16/2019 6:38 PM CDT Activ e * RETIRED Are you blind or do you have serious difficulty seeing, even when wearing glasses? Answer Date of Assessment Author Status No 07/16/2019 6:38 PM CDT Activ e * Do you have serious difficulty walking or climbing stairs? Answer Date of Assessment Author Status Yes 07/16/2019 6:38 PM CDT Jodi Asif RN Active * Do you have difficulty dressing or bathing? Answer Date of Assessment Author Status Yes 07/16/2019 6:38 PM CDT Jodi Asif RN Active * Because of a physical, mental, or emotional condition, do you have difficulty doing errands alone such as visiting a doctor's office or shopping? Answer Date of Assessment Author Status Yes 07/16/2019 6:38 PM CDT Jodi Asif RN Active documented as of this encounter Mental Status * Question Answer Entry Date Author Status Because of a physical, mental, or emotional condition, do you have serious difficulty concentrating, remembering, or making decisions? No 07/16/2019 10:31 PM CDT Eloisa Chaidez RN Active * Because of a physical, mental, or emotional condition, do you have serious difficulty concentrating, remembering, or making decisions? Answer Entry Date Author Status No 07/16/2019 6:38 PM CDT Jodi Asif RN Active documented in this encounter Plan of Treatment Not on file documented as of this encounter Visit Diagnoses Not on filedocumented in this encounter Additional Health Concerns Infection Onset Date Last Indicated Resolved Time MRSA Comment:MRSA Blood Identified 06/28/2019 06/28/2019 07/01/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 07/08/2019 07/08/2019 documented as of this encounter Care Teams Bilingual Trainer Relationship Specialty Start Date End Date Don Branham MD [address] [place] [address] PCP - General EMERGENCY MEDICINE 05/10/19 Damon Swanson MD INTERNAL MEDICINE 12/10/18 documented as of this encounter
--- OUTSIDE RECORDS SUMMARY | 2024-02-26 21:24 | XMS_ITS | Encounter Summary ---
Author Organization [facility] Address [address] [place] [address]. [place] [address] [place] [address] Care Team Providers Care Aircraft Charter Dispatcher Name Role Phone Damon Swanson MD Unavailable [phone] Don Branham MD Primary Care Provider [phone] Reason for Referral * Surgical (Routine) - Closed Specialty Diagnoses / Procedures Referred By Leif hilton Referred To Contact Procedures Case request operating room: Debridement left gluteal fold possible wound VAC placement Stanislav May MD Phone: tel: fax: Referral ID Status Reason Start Date Expiration Date Visits Re quested Visits Authorized [id number] Closed 07/17/2019 08/16/2020 1 1 * (Routine) - Canceled Specialty Diagnoses / Procedures Referred By Leif hilton Referred To Contact Procedures OT Eval and Treat [facility] [address] [place] [id number] Phone: tel: fax: Referral ID Status Reason Start Date Expiration Date V isits Requested Visits Authorized [id number] Canceled 07/16/2019 08/15/2020 1 1 * (Routine) - Canceled Specialty Diagnoses / Procedures Referred By Leif t Referred To Contact Procedures PT Eval and Treat Laith Garrido MD [address] [facility] [place] [address] Phone: tel: [phone] fax: Referral ID Status Reason Start Date Expiration Date V isits Requested Visits Authorized [id number] Canceled 07/16/2019 08/15/2020 1 1 Reason for Visit * Auth/Cert Specialty Diagnoses / Procedures Referred By Contac t Referred To Contact Diagnoses Infected decubitus ulcer Procedures INP Referral ID Status Reason Start Date Expiration Date Visits Re quested Visits Authorized [id number] 1 1 Encounter Details Date Type Department Care Team (Late st Contact Info) Description 07/16/2019 5:10 PM CDT - 07/19/2019 1:05 PM CDT Hospital Encounter [facility] [address] [place] [id number] [place] [address] [phone] (Work) Donovan Oleary APRN [address] [place] [address] [phone] (Work) Discharge Disposition: [facility] Facility Social History Tobacco Use Types Packs/Day Years [...] Mass Index 32.62 07/17/2019 1:35 AM CDT documented in this encounter Functional Status * Question Answer Date of Assessment Author Status Do you have serious difficulty walking or climbing stairs? Yes 07/16/2019 10:31 PM CDT Eloisa Chaidez RN Ac tive * Question Answer Date of Assessment Author [...] or making decisions? No 07/16/2019 10:31 PM SHAT Eloisa Chaidez RN Active * Because of a physical, mental, or emotional condition, do you have serious difficulty concentrating, remembering, or making decisions? Answer Entry Date Author Status No 07/16/2019 10:31 PM CDT Eloisa Chaidez RN Active documented in this encounter Discharge Summaries * Donovan Oleary APRN - 07/19/2019 12:43 PM CDT Hospitalist Discharge Summary Patient ID: Iris Pascual. female. 1955. Admit date: 07/16/2019 5:10 PM Discharge date and time: 07/19/19 Admitting Physician: Marlon Kenny MD Attending Physician: Donovan Oleary APRN Primary Care Physician: Don Branham MD Discharge Physician: DONOVAN OLEARY APRN Hospital Diagnosis: Infected decubitus ulcer Admission Condition: stable Discharged Condition: Stable SNF required due to: Wound care and ongoing prison Primary Diagnoses: Infected decubitus ulcers Secondary Diagnosis: Bacteremia Code Status: Full Code Indication for Admission: No chief complaint on file. Readmission/Mortality Score at discharge: Low 0-28, Medium 29-58, High >59 LACE+ Score Readmission Score: 59 Male Patient: Urgent Admission: Discharge Institution: Length of Stay: 4 Alternative Level of Care Status: 0 ED Visits in Previous 6 Months: 0 Elective Admission in Previous Year: 6 Comorbidity Score (by age & number of urgent admissions): 49 Findings that require further workup: Ongoing wound care Consults: general surgery Significant Diagnostic Studies: Recent Results (from the past 24 hour(s)) POCT glucose Collection Time: 07/18/19 4:38 PM Result Value Ref Range GLUCOSE POC 179 (H) 70 - 99 MG/DL POCT glucose Collection Time: 07/18/19 7:19 PM Result Value Ref Range GLUCOSE POC 232 (H) 70 - 99 MG/DL MAGNESIUM Collection Time: 07/19/19 4:40 AM Result Value Ref Range MAGNESIUM 2.0 1.8 - 2.4 MG/DL CBC W/DIFF AUTOMATED Collection Time: 07/19/19 4:40 AM Result Value Ref Range WBC 5.8 4.8 - 10.8 x10'3/uL RBC 3.36 (L) 4.10 - 5.10 x10'6/uL HGB 9.7 (L) 12.0 - 16.0 G/DL HCT 31.8 (L) 36 - 46 % MCV 94.6 80 - 100 FL MCH 28.9 26.0 - 34.0 PG MCHC 30.5 (L) 31.0 - 37.0 G/DL RDW 16.5 (H) 11.5 - 14.5 % PLT 290 150 - 350 x10'3/uL CBC COMMENT AUTOMATED RBC MORPHOLOGY AND PLATELET EVALUATION NORMAL NEUTROPHILS 56.8 50 - 70 % LYMPHOCYTES 25.0 18 - 42 % MONOCYTES 9.8 2.0 - 11.0 % EOSINOPHILS 7.4 (H) 1.0 - 3.0 % BASOPHILS 1.0 0.0 - 1.0 % ABS. NEUTROPHILS TOTAL 3.32 1.69 - 7.81 x10'3/uL COMPREHENSIVE METABOLIC PANEL Collection Time: 07/19/19 4:40 AM Result Value Ref Range GLUCOSE 86 70 - 99 MG/DL BUN 16 7 - 18 MG/DL CREATININE S/P/B 0.83 0.55 - 1.02 MG/DL SODIUM 141 136 - 145 MMOL/L POTASSIUM 3.8 3.5 - 5.1 MMOL/L CHLORIDE S/P/B 103 100 - 108 MMOL/L CO2 32.8 (H) 21 - 32 MMOL/L CALCIUM 8.7 8.5 - 10.1 MG/DL BILIRUBIN TOTAL S/P/B 0.4 0.2 - 1.2 MG/DL TOTAL PROTEIN 6.7 6.4 - 8.2 G/DL ALBUMIN S/P/B 2.1 (L) 3.4 - 5.0 G/DL AST 42 (H) 15 - 37 U/L ALT 31 14 - 55 U/L ALK PHOS 35 (L) 50 - 136 U/L ANION GAP 5.2 5 - 15 MMOL/L BUN CREATININE RATIO 19.3 6 - 26 A/G RATIO 0.5 (L) 1.0 - 2.0 RATIO eGFR Non-Afr. Amer. 75 (L) >90 ML/MIN/1.73 M2 eGFR Afr. Amer. 86 (L) >90 ML/MIN/1.73 M2 POCT glucose Collection Time: 07/19/19 7:23 AM Result Value Ref Range GLUCOSE POC 84 70 - 99 MG/DL POCT glucose Collection Time: 07/19/19 11:16 AM Result Value Ref Range GLUCOSE POC 146 (H) 70 - 99 MG/DL Radiology Reports : Ct Abd+pel W Con Result Date: 07/13/2019 EXAMINATION: CT abdomen/pelvis with contrast HISTORY: Nodular, vomiting, and diarrhea. History of bilateral breast cancer status post bilateral malignant lumpectomy 6-7 years ago. COMPARISON: None. TECHNIQUE: Axial CT images of the abdomen and pelvis 100 mL of Isovue-370 given through the right antecubital fossa . Sagittal and coronal reformatted image sets. A dose lowering technique was used forthis procedure, which may include, but is not limited to, dose reduction technique, automated exposure control, the use of degenerative reconstruction, and ALARA/image gently techniques. FINDINGS: Lower chest: There is a partially imaged round potential fluid collection in the right breast measuring 4.5 cm. This could represent an abscess or chronic seroma. This could also potentially represent apartially imaged inferior portion of a breast implant although a similar finding is not seen in theleft breast. Clinical correlation recommended. There is mild bibasilar atelectasis. The heart is enl arged. There is a small pericardial effusion. Calcified subcarinal lymph nodes are noted. Upper abdomen: The liver is normal in size and contour. No evidence of hepatic mass. Small scattered benign hepatic calcifications are noted. The portal vein is patent. No cholelithiasis. No biliary ductal dilatation. No acute-appearing pancreatic abnormalities. There are calcified splenic granulomas. No adrenal masses. Kidneys: The kidneys enhance symmetrically. No hydronephrosis or perinephric stranding. No evidence of renal mass. Vascular: There is atherosclerotic disease of the abdominal aorta whichremains normal caliber. No acute appearing vascular abnormalities. Bowel/mesentery: No ascites or free intraperitoneal air. No bowel obstruction. Fluid is seen throughout the small bowel and colon suggestive of a diarrheal state. There are surgical changes involving the cecum. No definite colonic or enteric inflammatory changes are identified. Pelvis: The urinary bladder is decompressed with a Reyes catheter. The uterus appears normally sized for the patient's age. No adnexal masses. There are pelvic phleboliths. No free pelvic fluid. Lymph nodes: No abdominal or pelvic lymphadenopathy. Other: A very large skin ulcer is noted underlying the left ischial tuberosity. There is a very large fluid collection demonstrating peripheral calcification in the subcutaneous fat of the anterior midlineabdomen measuring approximately 9.5 x 7.5 x 15 cm (TV by AP by CC). There are also findings of hernia repair surgery along the anterior abdomen. There are no herniated bowel loops. This is most likely related to chronic postoperative seroma formation. Osseous: There are multisite degenerative changes in the spine and pelvis. No acute appearing osseous abnormalities are identified. IMPRESSION: 1. Findings suggestive of a diarrheal state. 2. No bowel obstruction or visible areas of inflammation. 3. Cardiomegaly. Small pericardial effusion. 4. Partially imaged round potential fluid collection in the right breast measuring 4.5 cm. This could represent a chronic postoperative seroma or abscess. This could also potentially represent a partially imaged inferior portion of a breast implant although a similar finding is not seen in the left breast. Clinical correlation recommended (no comparisons/additional imaging examinations are available). 5. Very large 9.5 x 7.5 x 15 cm fluid collection within the subcutaneous fat of the anterior midline abdomen which demonstrates thin peripheral wall calcifications. There are underlying findings of prior hernia repair surgery in the anterior abdominal wall. This is most likely to represent a large chronic postoperative seroma. 6. Very large skin ulcer underlying the left ischial tuberosity. Interpreted By: Harlan Gallardo DO, 07/13/2019 1:[address] Cerv Spine Wo Con Result Date: [...] Date: 07/04/2019 STAR Report Pat.Name: IRIS PASCUAL Pat.ID: [id number] .Date: 07/04/2019 Exam Time: 12:56:00 PM Study Type:TRANSESOPHAGEAL ECHO (STAR) Height: 62in Weight: 167.65lb BSA: 1.77 m2 Age: 11 1955,64Y Sex: FEMALE BP: 147/68 HR: 67 bpm Sonogrphr: Lacie Victor [facility] Pat. Stat.:Inpatient Reason for Study: Bacteremia History [...] the mouth. IV sedation was administered. The transesophagealecho probe was inserted into the posterior pharynx [...] is normal. Estimated left ventricular ejection fraction is55-60%. Moderate concentric left ventricular hypertrophy. WM: Wall motion appears normal in all segments. RV: The right ventricle size is normal. The right ventricular function is normal. LA: Left atrial appendage is normal. Left atrial appendage velocity is normal. The left atrium was not well visualized in all views. RA: The right atrial size is normal. IAS: Atrial septum appears intact. JAKOB:Trivial pericardial effusion, without tamponade physiology. AO: The [...] No tricuspid valve vegetation. ++++++++++++++++++++++++++++++++++++ STAR: ++++++++++++++++++++++++++++++++++++ PreTEE BP HR Post STAR BP HR 163/70 [...] Result Date: 06/30/2019 Echocardiography Report Pat.Name: IRIS PASCUAL.ID: [id number] St.Date: 06/30/2019 Exam Time: 12:31:00 PM Study Type:ECHO WITH CARDIAC DOPPLER COMP Height: 62in Weight: 169.65lb BSA: 1.78 m2 Age: 11 1955,64Y Sex: FEMALE BP: 156/67 HR: 79 bpm Sonogrphr: Lucía Ozuna Stat.:Inpatient Room: 440 History / Clinical: Elevated [...] effusion, without tamponade physiology. No significant valvular disease.++++++++++++++++++++++++++++++++++++ FINDINGS: ++++++++++++++++++++++++++++++++++++ LV: The left ventricular size [...] size is normal. IAS: Atrialseptum appears intact. JAKOB: Trivial pericardial effusion, without tamponade physiology. AO: [...] Index 29.2 ml/m2 LVOT TVI 29.1 cm RightAtrium RA Press 5 mmHg Luz's Disk 20 [...] 1.77 cm2 Ratios IVS LA Biplane LAVol I BP 32.1 ml/m2 RA Single Plane Right Atrium MO 10.5 mm Right Atrium Sy 40.8 ml Right Atrium Sy 58.6 mm Right Atrium Sy 22.9 ml/m2 Right Atrium Sy 17 cm2 Right Ventricle Right Ventricle 31.9 mm Right Ventricle 24.4 mm Major [place] 82.7 mm MMODE TA Tricuspid Annul 12.6 mm Signed 06/30/2019 02:55 PM Leslie Seaman M.D. Discharge Exam: Filed Vitals: 07/18/19 0504 07/18/19 1353 07/18/19 1915 07/19/19 0320 BP: 126/55 123/65 145/71 133/75 Pulse: 73 69 69 67 Resp: 18 16 18 18 Temp: 98.5 ??F (36.9 ??C) 98.7 ??F (37.1 ??C) 98.6 ??F (37 ??C) 98.2 ??F (36.8 ??C) TempSrc: Oral Oral Oral Oral SpO2: 97% 100% 100% 99% Weight: Height: Physical Exam: GENERAL:??No acute distress, well developed, and alert HEENT:?Mucous membranes moist, neck supple, trachea midline RESPIRATORY:??Respirations even and unlabored, clear breath sounds, no wheezes, or crackles noted CARDIAC:??Regular rate and rhythm, no murmur, gallops, or JVD, no peripheral edema GI:??Nontender, nondistended, bowel sounds present, no obvious masses : No suprapubic tenderness upon palpation, no CVAT MUSC:??ROM grossly intact NEURO:??Alert and oriented, no gross deficit, cranial nerves intact, PERRLA SKIN:??Multiple decubitus ulcers, located to bilateral heels, sacral/coccyx area LYMPH: No obvious lymphadenopathy?? PSYCH:??Alert, appropriate, normal behavior, normal judgement and thought content Discharge Medications: Medication List START taking these medications fluconazole 200 MG tablet Commonly known as: DIFLUCAN Take 1 tablet (200 mg total) by mouth daily for 2 days. Start taking on: July 20, 2019 lactobacillus Tabs Commonly known as: FLORANEX Take 1 tablet by mouth 2 (two) times daily for 30 days. levoFLOXacin 500 MG tablet Commonly known as: LEVAQUIN Take 1 tablet (500 mg total) by mouth daily for 10 days. linezolid 600 MG tablet Commonly known as: ZYVOX Take 1 tablet (600 mg total) by mouth 2 (two) times daily for 10 days. CHANGE how you take these medications levothyroxine 50 MCG tablet Commonly known as: SYNTHROID Take 1 tablet (50 mcg total) by mouth daily. What changed: how much to take CONTINUE taking these medications aspirin 325 MG tablet Take [...] Units into the skin nightly at bedtime. pantoprazole EC 40 MG tablet Commonly known as: PROTONIX Take 1 tablet (40 mg total) by mouth daily. STOP taking these medications sodium chloride 0.9 % SOLN 100 mL with DAPTOmycin 500 MG SOLR 625 mg Where to Get Your Medications These medications were sent to [facility] [address] [place] [address] [address] [facility] [address] ?? levoFLOXacin 500 MG tablet You can get these medications from any pharmacy Bring a paper prescription for each of these medications ?? fluconazole 200 MG tablet ?? lactobacillus Tabs ?? linezolid 600 MG tablet Disposition: [facility] Facility Patient Instructions: Activity: activity as tolerated Diet: Diet Carb Controlled Appropriate; 60g/meal Wound Care: as directed Therapy Ordered: Physical Therapy: Evaluate and Treat prison: Evaluate and treat Follow-up appointments: Rounding physician 1 week, general surgery as needed Hospital Course: Iris Pascual is a 64-year-old female that presented to the hospital for swing bed program given bacteremia due to LLE cellulitis requiring 7d of cont Daptomycin.?Patient's hospital course was complicated by diarrhea, which was C. difficile negative and found to be secondary to stool softeners and resolved after discontinuing stool softeners. ??Patient also had a urinary tract infection which was initially treated with ceftriaxone, but then found to be 100,000 Criselda and is currently being treated with IV Diflucan. ??Patient also found to have worsening left ischial??decubitus ulcer. ??Wound care consult was obtained and recommendation was made for wound to be surgically treated with incision and drainage. At current, patient denies any chest pain, dyspnea, dizziness, light headedness, headache, syncope, arthralgia, numbness/tingling, nausea/vomiting, fever/chills, cough, dysuria, polyuria, polyphagia, polydipsia, blurred vision, double vision, palpitations, hematuria, hematochezia, hematemesis, hemoptysis, abdominal pain, constipation, diarrhea, incontinence, anorexia, and unintended weight loss. Patient remained stable during hospitalization. She has a wound VAC in place and will continue on oral Levaquin and Diflucan as outpatient. Patient follow-up with rounding physician 1 week. Patient may need further wound care at prison facility. Recommend continued following by prison. If needed, patient follow-up with general surgery as well. Assessment/Plan: Polymicrobial Bacteremia MRSA, E faecalis Suspect??2/2 multiple wounds ID consulted, appreciate recs On??vanc initially, follow renal function, pharmacy to dose TTE obtained Repeat blood cx reveal 1/2 bottles with VRE, follow with ID recs Latest blood cultures??neg Now on dapto??through 07/17/19 per ID STAR d/t continued bacteremia, no evidence of endocarditis?? PICC line today July 12-patient remains on daptomycin until July 16July 3-continue daptomycin July 4-continue daptomycin until July 16July 5-last dose of daptomycin is tomorrow 07/16: No fevers, consider repeat blood cultures if warranted 07/17: Patient completed daptomycin dosing, will wait for wound cultures to determine if patient needs further antibiotics aside from fluconazole for UTI 07/18: Resolved, daptomycin dosing completed ?? Multiple pressure ulcers stage 2-3 POA Wound care c/s See media As above July 12-left gluteal ulcer has been covered by diarrhea, concern for ongoing infection -CT pending to evaluate for possible extension into bone concern for osteomyelitis Continue wound care treatment July 13-CT shows no evidence of osteomyelitis, continue treatment as above. ??Patient to follow-up with wound care as an outpatient July 14-wound care consult pending and appreciated July 15-appreciate wound care consult. ??Patient is now scheduled for incision and drainage of left decubitus ulcer 07/16: Patient undergo I&D today with general surgery 07/17: Patient underwent I&D yesterday, cultures pending, wound VAC in place 07/18: Patient underwent I&D and now has wound VAC in place, shows growth of E. coli, sensitive to Levaquin, will continue Levaquin for 10 days patient also has VRE present, therefore, will need Linezolid as well ?? Diarrhea May 2-patient initially had constipation, has been started on Colace and milk of magnesia. ??Now having diarrhea. ??Patient has been tested for C. difficile which was negative less than 1 week ago. ??Current diarrhea is mushy but not watery and [...] discharge May 5-continue IV Diflucan as above 56: Continue Diflucan 07/17: Continue plan of care 07/18: Continue Diflucan for 2 more days and then completed, likely resolved ABDIRASHID May 3-resolving, creatinine down to 1.0 from 1.5 May 4-resolved ?? PVD With nonhealing wounds to LLE Vascular consulted, appreciate recs LLE arteriogram 07/05/2019 F/u in wound clinic as outpt ?? Anemia Hgb??8.7??today, improved from yesterday Baseline appears to be near 9 Suspect 2/2 wounds, c/b component of underlying CKD Iron studies and folate WNL Check guaiac,??still pending Start PPI BID Transfuse 1u pRBC 07/02 Now improved, awaiting guaiac May 3-hemoglobin stable at 7.8, no signs of active bleeding 07/16: Patient hemoglobin remained stable at 7.7, however, according to surgery, they prefer patient be at hemoglobin of 8. ??Therefore, will initiate blood transfusion x1 unit 07/17: Hemoglobin stable ?? Severe Sepsis without Shock??: Resolved Patient was found to be hypothermic in the ED with temperature of 93.9F and hypotension (pressure 89/56 mmHg which improved with IVF). Vancomycin and Cefepime were initiated for broad coverage, ??Monitor Cr, vanc trough Transitioned to dapto as above Source: skin given multiple ulcers found on exam Blood cx 2 with MRSA and Enterococcus and MRSA, see [...] Lantus daily, add meal time insulin May 3- A1c 11 ?? ABDIRASHID on CKD 3: resolved Patient presented with BUN of 21 and SCr of 1.31, up from 0.92 last month. Hydration with IVF Resolved. Off IVF ?? Obesity, BMI 31.21 Recommend lifestyle and behavioral modifications ?? Hypothyroidism Increased levothyroxine Follow up with PCP and repeat labs in 4-6 weeks During my evaluation and management, personal protective equipment was used and reasonable measureswere taken to reduce spread based on the current recommendations from the CDC and WHO Time Spent on Discharge: Greater than 30 mins Signed: DONOVAN OLEARY APRN 07/19/2019 1:00 PM Cosigned by Ekaterina Barlow MD at 07/19/2019 8:12 PM CDT documented in this encounter Discharge Instructions * Discharge Instructions* Mary Beth Foreman RN - 07/19/2019 12:44 PM CDT Your provider recommends you continue to consume extra protein of your choice (cheese, icelandic yogurt, nuts, eggs, meat, peanut butter) at meals. Follow up with wound care. Wound vac need to be changed 07/20/2019 and then Q3D or per wound therapy. documented in this encounter Medications at Time [...] for 10 days. 20 tablet 07/19/2019 0 documented as of this encounter Progress Notes * Genesis Castellanos LCSW - 07/19/2019 10:45 AM CDT Patient will transfer and transition of care will begin at [facility] in [facility] [place]. Full report provided to longterm for continuity of care. Medical record sent. Patient aware of transfer executive secretary social welfare contacted patient's daughter Celina and she is aware of patient discharge and transfer to [facility] in [place]. Patient was been a resident there prior. Patient is alert, oriented, and aware of transfer. Patient will transfer by ambulance. Wound vac needs to be meet at longterm. No other services indicated. Case is closed. * June Johnson, AIRPORT RAMP SUPERVISOR - 07/19/2019 10:07 AM CDT 07/19/19 0900 Therapy Visit Ordering Provider Dr. Kenny PT Received On 07/19/19 Treatment Day 3 Subjective Pt states she is done eating will do ex in bed but doesn't want to get up due to being tired and left hip hurting her. Reason for admission Infected decubitus ulcer Acute Inpatient PT Time Calculation PT Start Time 0857 PT Stop Time 0914 PT Time Calculation (min) 17 min Precautions Precautions Yes/No Yes General Precautions Fall Risk Instructed on Precautions Yes;Needs reinforcement and education Skin Integrity Wound vac and reyes Pain Pain Yes Pain Score 5 Location Left hip Activity Tolerance Endurance Tolerates 10 - 20 min activity with rests Cognition Overall Cognitive Status Impaired Bed Mobility Rolling Min assist to right Other (Comment) Pt able to roll to the right with min assist to postion pillows behind her and between her legs. Exercises Ankle Pumps x15 Quad Sets x15 Heelslides x15 Straight Leg Raise x15 with minimal assist Glut Sets x15 Hip Abduction supine with minimal assist x15 Other (Comment) all ex B PT Assessment PT Assessment Pt in bed performed ex to B legs in supine 15 reps ea pt required minimal assitance with SLR, and supine hip ABD. No gait or transfer sit to stand this morning per pts request tired andpainful wants to rest. Pt required minimal assist of one to roll to right side to postion pillows behind her and one between her legs. Nursing aware of session. Recommendation PT Recommendation PT at [facility] Facility PT Equipment Recommended Currently has DME in Place Barriers to Community Discharge Cognition;Lack of caregiver;Safety Plan PT Treatments/Interventions Gait Training;Therapeutic Exercises;Therapeutic Activities;Neuromuscular re-education;Patient/family training Progress Slow progress, medical status limitations If this is the last treatment note,it will serve as the discharge summary Yes End of Session Safety End of Session Safety Call light within reach;Nursing aware of session * Stanislav Bishop MD - 07/19/2019 9:12 AM CDT Iris Pascual 07/19/2019 Subjective No complaints, nursing staff noticed some leaking on the bridge part of the wound VAC. Denies pain this morning Objective Vitals: Vital 24 Hour Range Most Recent Value Temperature Temp Min: 98.2 ??F (36.8 ??C) Max: 98.7 ??F (37.1 ??C) 98.2 ??F (36.8 ??C) Pulse Pulse Min: 67 Max: 69 67 Respiratory Resp Min: 16 Max: 18 18 Blood Pressure BP Min: 123/65 Max: 145/71 133/75 Pulse Oximetry SpO2 Min: 99 % Max: 100 % 99 % O2 No data recorded Intake/Output Summary (Last 24 hours) at 07/19/2019 0912 Last data filed at 07/19/2019 0905 Gross per 24 hour Intake 1358 ml Output 2375 ml Net -1017 ml Physical Exam Wound VAC reinforced, extending well, minimal serosanguineous output in the canister Labs: Recent Labs Lab 07/17/19 0400 07/18/19 0505 07/19/19 0440 WBC 4.9 5.6 5.8 RBC 2.66* 3.12* 3.36* HGB 7.7* 9.4* 9.7* HCT 24.7* 29.3* 31.8* NA 141 139 141 K 4.0 4.0 3.8 CL 103 102 103 CO2 31.7 32.7* 32.8* AGAP 6.3 4.3* 5.2 BUN 14 16 16 CR 0.88 0.96 0.83 BUNCREATININ 15.9 16.7 19.3 GFRNON 69* 62* 75* GFR 80* 72* 86* GLU 103* 183* 86 CA 8.2* 8.1* 8.7 TP -- 6.4 6.7 ALB -- 1.9* 2.1* TBIL -- 0.4 0.4 ALKP -- 36* 35* AST -- 38* 42* ALT -- 30 31 Pertinent images and labs reviewed Radiology: Radiology Results (Last 48 hours) None Assessment: 2 Days Post-Op Procedure(s): Debridement left gluteal fold, wound VAC placement Plan: OK to discharge to longterm from surgical standpoint Wound VAC should be changed every 3 days starting tomorrow 07/20/2019 Plan of care discussed with the patient/family,medical team and nursing staff. STANISLAV BISHOP MD 07/19/2019, 9:12 AM * Jaylin Veliz RN - 07/18/2019 10:37 PM CDT Problem: Mobility - Impaired Goal: Able to use ambulatory assistive device appropriately Outcome: Progressing Goal: Knowledge of need for increased mobility Outcome: Progressing Problem: Discharge Planning Goal: Knowledge of discharge instructions Outcome: Progressing Note: [facility] care on multiple ulcers. Problem: Pain control/comfort Goal: Promote pain control/comfort Outcome: Progressing Note: No c/o pain, patient resting comfortably, repositioning q2h. Problem: Skin integrity, Impaired-wound Goal: Absence of new skin breakdown Outcome: Progressing Note: No new skin breakdown. Goal: Evidence of wound healing Outcome: Progressing * Genesis Castellanos LCSW - 07/18/2019 2:47 PM CDT chemical plant worker spoke with Katie at [facility] in [facility]. [place] is aware of patient's needs. Wound VAC etc..., Patient to go by ambulance. Adjunct Nursing Faculty will follow. * Yoana Ledbetter RN - 07/18/2019 1:58 PM CDT Problem: Mobility - Impaired Goal: Able to use ambulatory assistive device appropriately Outcome: Progressing Goal: Knowledge of need for increased mobility Outcome: Progressing Problem: Discharge Planning Goal: Knowledge of discharge instructions Outcome: Progressing * Renay Manuel Barba, OT - 07/18/2019 12:50 PM CDT 07/18/19 1200 Therapy Visit OT Received On 07/18/19 Treatment Day 1 (ACUTE EVALUATION) Reason for admission Infected decubitus ulcer , s/p I & D of L gluteal decub with wound vac placement. Patient transitioned back to inpatient status from swing bed. Comorbidities Relevant to OT sepsis, DN, HTN, shizophrenia, breast CA Ordering Provider Dr. Kenny Verified Two Patient Identifiers Yes Patient consents to therapy Yes Acute Inpatient OT Time Calculation OT Start Time 1041 OT Stop Time 1059 OT Time Calculation (min) 18 min OT Therapy Interruption (min) Total eval eval time 40 minutes to include chart review and documentation. No additional tx minutes. Precautions Precautions Yes/No Yes General Precautions Bed Alarm;Fall Risk Instructed on Precautions Yes;Needs reinforcement and education Skin Integrity wound vac to L gluteal fold. Bordered gauuze dressings to B heels Subjective Subjective Patient reports she didn't sleep well last night and is tired. Patient reports dizzinessupon head of bed being raised and with EOB sitting. Patient denies pain. Home Living Type of Home House Home Layout One level Home Accessibility 0 Steps to enter Bathroom Shower/Tub Walk-in shower Bathroom Toilet Standard Toilet Bathroom Equipment Tub/shower chair with back Bathroom Accessibility Accessible Home Equipment 2 Wheeled walker Additional Comments Reports her daughter and granddaughter assists her with LB ADLS Prior Function Level of [place] Independent with functional transfers;Independent with ambulation;Needs assistance with ADLs Device used at baseline 2 Wheeled walker Baseline Ambulation Distance/Assistance household ambulator; reports very short distances. Fall History Yes Reason for fall Loss of balance Most recent fall reason for admission How many falls in the past year? Multiple Lives With Family Receives Help From Family ADL Assistance Needs assistance Homemaking Assistance Needs assistance Therapy Leisure Reading;Visit with family and friends Comments Doesn't drive anymore. Gets out to go to [place] with assistance. Pain Pain No Objective Objective BP taken in LUE due to c/o dizziness. HOB elevated 122/63 mm HG, HR 88 bpm, Sitting EOB 132/98mm Hg, HR 73 bpm. Activity Tolerance Endurance Tolerates 10 - 20 min activity with rests Cognition Overall Cognitive Status Impaired Arousal/Alertness Generalized responses Attention Span Difficulty attending to directions Memory Decreased recall of recent events Orientation Level Oriented X4 Following Commands Follows multistep commands without difficulty Safety Judgment Decreased awareness of need for safety Awareness of Errors Decreased awareness of errors Deficits Decreased awareness of deficits Problem Solving Assistance required to generate solutions Overall Extremity Assessment Upper Extremity BRENDON UES AROM WFLS, STRENGTH 4-/5 Hand Function Hand Dominance Right Gross Grasp Right;Left;Functional Coordination Impaired ADL Grooming Assistance Stand by;Sitting in chair Grooming Deficit Setup;Supervision/safety;Increased time to complete Grooming Comment Complete washing hands and face while seated in chair with min cues for initiation Bathing Comment Not formally assessed however from prior sessions and clincal judgement patient would require max A/total assist for LB and min A UB LE Dressing Assistance Total;Sitting at EOB LE Dressing Deficit Don/doff R sock;Don/doff L sock LE Dressing Comment difficulty with distal reaching Bed Mobility Supine to Sit Mod assist to left;Assist of 2 Functional Transfers Sit to Stand Mod assist;Assist of 2 Bed to Chair Min assist (of one with ww and addtl assist for equipment) Assessment Prognosis Fair OT Assess/Eval Other (Comment) This 64 year old female presents s/p I and D of L gluteal decub withwound vac placement.She has UE/LE strength deficits, decreased activity tolerance and and standing balance deficits affecting daily occupational performance. Patient is motivated during session and would benefit from continued OT to increased independence and safety with basic ADLS, transfers and mobility. Patient/Family Training Self Cares x Transfer Training x Recommendation OT Recommendation OT during Hospitalization;OT at [facility] OT Equipment Recommended Currently has DME in Place Barriers to Community Discharge Cognition;Lack of caregiver;Safety Plan OT Treatment/Intervention Self-care training;Therapeutic exercises;Therapeutic activities;Functional activity Progress Slow progress, medical status limitations OT Frequency (4-5x/week, mon-fri) If this is the last treatment note, it will serve as the discharge summary Yes End of Session Safety End of Session Safety Call light within reach;Nursing aware of session * June Johnson, RACHEL - 07/18/2019 12:48 PM CDT 07/18/19 1243 Therapy Visit Ordering Provider Dr. Kenny PT Received On 07/18/19 Treatment Day 2 Subjective Pt states she is done eating and ready to go back to bed to rest. Reason for admission Infected decubitus ulcer Acute Inpatient PT Time Calculation PT Start Time 1226 PT Stop Time 1239 PT Time Calculation (min) 13 min Precautions Precautions Yes/No Yes General Precautions Fall Risk Instructed on Precautions Yes;Needs reinforcement and education Skin Integrity Wound vac and reyes Pain Pain No Activity Tolerance Endurance Tolerates 10 - 20 min activity with rests Cognition Overall Cognitive Status Impaired Bed Mobility Sit to Supine Mod assist to right;Assist of 2 TRANSFERS Sit to Stand Mod assist;Assist of 2 Other (Comment) some vc for hand placement Gait Gait Assistance Min assist;With gait belt Assistive Device Standard walker Ambulation Distance (Feet) 15 feet Pattern Shuffle steps PT Assessment PT Assessment Pt transfered sit to stand mod assist of 2 and ambulated 15 feet with min assist of one and one to help with wound vac cord. Pt back to bed does require mod assist of 2 for bed mobiltiy. Recommendation PT Recommendation PT at [facility] PT Equipment Recommended Currently has DME in Place Barriers to Community Discharge Cognition;Lack of caregiver;Safety Plan PT Treatments/Interventions Gait Training;Therapeutic Exercises;Therapeutic Activities;Patient/family training Progress Slow progress, medical status limitations PT - Next Appointment 07/19/19 If this is the last treatment note,it will serve as the discharge summary Yes End of Session Safety End of Session Safety Call light within reach;Nursing aware of session End of Session Comment Back to be * Stanislav Bishop MD - 07/18/2019 11:59 AM CDT Iris Pascual 07/18/2019 Subjective NO acute issues last night. Pain well controlled. Objective Vitals: Vital 24 Hour Range Most Recent Value Temperature Temp Min: 98.5 ??F (36.9 ??C) Max: 98.5 ??F (36.9 ??C) 98.5 ??F (36.9 ??C) Pulse Pulse Min: 73 Max: 74 73 Respiratory Resp Min: 16 Max: 18 18 Blood Pressure BP Min: 93/84 Max: 158/74 126/55 Pulse Oximetry SpO2 Min: 97 % Max: 98 % 97 % O2 No data recorded Intake/Output Summary (Last 24 hours) at 07/18/2019 1159 Last data filed at 07/18/2019 0800 Gross per 24 hour Intake 1433 ml Output 2150 ml Net -717 ml Physical Exam Wound VAC in place and functioning,minimal output in the canister, no leak Labs: Recent Labs Lab 07/16/19 0320 07/17/19 0400 07/18/19 0505 WBC 5.9 4.9 5.6 RBC 2.58* 2.66* 3.12* HGB 7.3* 7.7* 9.4* HCT 23.6* 24.7* 29.3* NA 138 141 139 K 3.8 4.0 4.0 CL 102 103 102 CO2 30.3 31.7 32.7* AGAP 5.7 6.3 4.3* BUN 15 14 16 CR 0.83 0.88 0.96 BUNCREATININ 18.1 15.9 16.7 GFRNON 75* 69* 62* GFR 86* 80* 72* GLU 106* 103* 183* CA 7.6* 8.2* 8.1* TP -- -- 6.4 ALB -- -- 1.9* TBIL -- -- 0.4 ALKP -- -- 36* AST -- -- 38* ALT -- -- 30 Pertinent images and labs reviewed Radiology: Radiology Results (Last 48 hours) None Assessment: 1 Day Post-Op Procedure(s): Debridement left gluteal fold, wound VAC placement Wound VAC in place Plan: Continue current care as per primary Wound Care: For Wound care change q3 days. Plan of care discussed with the patient/family,medical team and nursing staff. STANISLAV BISHOP MD 07/18/2019, 11:59 AM * Natalie Faye PT - 07/18/2019 11:32 AM CDT 07/18/19 1100 Therapy Visit Ordering Provider Nina TORRES Received On 07/18/19 Treatment Day 1 Subjective Room 118. Patient transitioned from swing bed status to acute status due to needed wounddebridement. Patient states that she didn't sleep well last night, but denies any current pain. Reports being tired and dizzy. Reason for admission Ulcers Relevant Comorbidities/ Personal Factors to PT PMH: HTN, HLD, breast CA, DM2, schizophrenia, PVD, dementia Verified Two Patient Identifiers Yes Patient consents to therapy Yes Acute Inpatient PT Time Calculation PT Start Time 1041 PT Stop Time 1101 PT Time Calculation (min) 20 min Precautions Precautions Yes/No Yes General Precautions Bed Alarm;Fall Risk Instructed on Precautions Yes;Needs reinforcement and education Skin Integrity Wound Vac applied to sacral wound. Cushioned bandages applied to bilateral heels. Home Living Type of Home House Home Layout One level Home Accessibility 0 Steps to enter Bathroom Shower/Tub Walk-in shower Bathroom Toilet Standard Toilet Bathroom Equipment Tub/shower chair with back Bathroom Accessibility Accessible Home Equipment 2 Wheeled walker Additional Comments Reports her daughter and granddaughter assists her with LB ADLS Prior Function Level of [place] Independent with functional transfers;Independent with ambulation;Needs assistance with ADLs Device used at baseline 2 Wheeled walker Baseline Ambulation Distance/Assistance household ambulator; reports very short distances. Fall History Yes Reason for fall Loss of balance Most recent fall reason for admission How many falls in the past year? Multiple Lives With Family Receives Help From Family Pain Pain No Activity Tolerance Endurance Tolerates 10 - 20 min activity with rests Vision - Complex Assessment Additional Comments No nystagmus noted. Cognition Overall Cognitive Status Impaired Arousal/Alertness Generalized responses Attention Span Difficulty attending to directions Orientation Level Oriented X4 Safety Judgment Decreased awareness of need for safety Awareness of Errors Decreased awareness of errors Deficits Decreased awareness of deficits Overall Extremity Assessment Lower Extremity AROM WFL Lower Extremity Comment LE Strength: Hip flexion B 2+/5, Knee extension 4/5, Ankle DF 2+/5 Bed Mobility Supine to Sit Mod assist to left;Assist of 2 Other (Comment) Due to c/o dizziness = Vitals taken in supine: BP 122/63 HR 73. Vitals taken in sitting: BP 132/98 HR 88 TRANSFERS Sit to Stand Mod assist;Assist of 2 Other (Comment) VC required for hand placement and motivation to assist herself. Gait Gait Assistance Min assist;With gait belt (with one more assist for equipment.) Assistive Device Standard walker Ambulation Distance (Feet) 5 feet Pattern Shuffle steps Other (Comment) VC required for upright posture. Balance Sitting - Static Min Assist (mod-max Assist on initial sit for a few minutes.) Standing - Static Support of both upper extremities;Min Assist Standing - Dynamic Support of both upper extremities;Min Assist Patient/Family Training Bed Mobility Patient needs direction and motivation to participate. Transfer Training VC for hand placement. Assessment Personal Factors/Comorbidities Impacting Care 3-4 personal factors/comorbidities Examination of Body Systems High (at least 4 Elements) Objectives of Body Systems Impaired bed mobility;Impaired transfers;Impaired ambulation;Impaired balance;Decreased LE strength;Decreased safe judgement;Decreased cognition;Decreased endurance Clinical Presentation of Patient Evolving and changing characteristics Complexity Level of Evaluation Moderate Prognosis Fair PT Assess/Eval Other (Comment) Patient is a 64 year old female presenting to acute status s/p wounddebridement and decline in function. Patient would benefit from skilled PT to improve independence with transfers and overall mobility. Recommendation PT Recommendation [facility] at [facility] PT Equipment Recommended Currently has DME in Place Barriers to Community Discharge Cognition;Lack of caregiver;Safety Plan PT Treatments/Interventions Gait Training;Therapeutic Exercises;Therapeutic Activities;Patient/family training Progress Slow progress, medical status limitations PT Frequency Daily;BID;3 times/week;6 times/week PT plan for next session Increased activity tolerance by improving strength. If this is the last treatment note,it will serve as the discharge summary Yes End of Session Safety End of Session Safety Call light within reach * Candice Bhardwaj, RD - 07/18/2019 10:04 AM CDT Dietitian Nutrition Follow Up Assessment Iris Pascual, 1955, 64-year-old female admitted back to inpatient status due to necessary debridement. ?? Nutrition Recommendations: Nutrition Diagnosis: INCREASED NUTRIENT NEEDS related to a decreased ability to consume sufficient energy/protein as evidenced by skin breakdown to lower extremity, depleted protein stores (Alb 1.9, TP 6.4), uncontrolled diabetes with Hgb A1c 11, and [...] in the future if patient will be caring for herself. Nutrition Monitoring and Evaluation: Patients food and beverage intake will >75% on average of meals. Patient with 100% oral intake documented since admit. Continue protein supplements BID and recommend additional protein post discharge. ? Past Medical History Past Medical History: Diagnosis Date ??? Cancer (CMS/HCC) breast ??? Diabetes mellitus (CMS/HCC) ??? Disease of thyroid gland ??? Hypertension ??? PVD (peripheral vascular disease) (CMS/HCC) ??? Schizophrenia (CMS/HCC) Referral From: Nutrition Screening Assessment: Follow-Up Reassessment Anthropometrics: Wt Readings from Last 3 Encounters: 07/17/19 80.9 kg (178 lb 5.6 oz) 07/09/19 80.9 kg (178 lb 5.6 oz) 07/09/19 78.2 kg (172 lb 6.4 oz) Ht Readings from Last 1 Encounters: 07/17/19 5' 2 (1.575 m) Body mass index is 32.62 kg/m??. BMI Assessment: Grade 1 Obesity [place] Body Weight: 110 pounds Percent [place] Body Weight: 162% Usual Body Weight: 195 pounds in May Percent Usual Body Weight: 91% x 2 months Percent Weight Loss: 9% over the past 2 months Nutrition: Current Diet Order: Diet Carb Controlled Appropriate; 60g/meal Diet Comment: Patient lives at home by herself but most likely will transition to a longterm for further care. Patient appears to have 9% wt loss in past 30 days. Chewing/swallowing problems: No Food allergies/intolerances: none Cultural/Christianity food preferences: none Current diet appropriate? Yes Current intake sufficient to meet nutritional needs? Patient is consuming 100% of meals; therefore is getting 1874 kcal and 91 grams of protein on average which meets estimated nutritional needs. Pain affecting PO intake? No Estimated Nutrient Needs: Calories: 7252-0370 kcal/day, based on 20 kcal/kg Protein: 91 gm/day, based on 1.25 gm/kg Labs: Alb 1.9, TP 6.4 HGB A1C Date Value Ref Range Status 07/13/2019 11.0 (H) <5.7 % Final Nutrition Risk: High Discharge nutrition plan: Discharge needs assessed. Will provide/update discharge instructions as needed. (See Nutrition Prescription above) CANDICE BHARDWAJ RD 07/18/19, 10:04 AM * Donovan Oleary, LEAD TELLER - 07/18/2019 9:23 AM CDT Hospitalist Daily Progress Note Subjective Patient doing well no complaints this time. Denies chest pain, dyspnea, N/V, fever/chills, abdominal pain, constipation, diarrhea, dizziness, lightheadedness, syncope, and headache Objective Filed Vitals: 07/17/19 1341 07/17/19 1507 07/17/19 1954 07/18/19 0504 BP: 93/84 149/74 141/74 126/55 Pulse: 74 73 Resp: 16 18 Temp: 98.5 ??F (36.9 ??C) 98.5 ??F (36.9 ??C) TempSrc: Oral Oral SpO2: 98% 97% Weight: Height: Physical Exam: GENERAL: No acute distress, well developed, and alert HEENT: Mucous membranes moist, neck supple, trachea midline RESPIRATORY: Respirations even and unlabored, clear breath sounds, no wheezes, or crackles noted CARDIAC: Regular rate and rhythm, no murmur, gallops, or JVD, no peripheral edema GI: Nontender, nondistended, bowel sounds present, no obvious masses : No suprapubic tenderness upon palpation, no CVAT MUSC: ROM grossly intact NEURO: Alert and oriented, no gross deficit, cranial nerves intact, PERRLA SKIN: Multiple decubitus ulcers, located to bilateral heels, sacral/coccyx area LYMPH: No obvious lymphadenopathy PSYCH: Alert, appropriate, normal behavior, normal judgement and thought content Intake/Output 24H Total: Intake/Output Summary (Last 24 hours) at 07/18/2019 0924 Last data filed at 07/18/2019 0800 Gross per 24 hour Intake 2559 ml Output 2150 ml Net 409 ml Medication ??? aspirin 325 mg Oral Daily ??? atorvastatin 40 mg Oral Daily ??? chlorthalidone 25 mg Oral Daily ??? collagenase Topical Daily ??? fluconazole 400 mg Intravenous Q24H ??? gabapentin 300 mg Oral TID ??? heparin (porcine) 5,000 Units Subcutaneous 2 times per day ??? insulin glargine 15 Units Subcutaneous Nightly at bedtime ??? insulin lispro 0-16 Units Subcutaneous TID AC And ??? insulin lispro 0-8 Units Subcutaneous Nightly at bedtime ??? levothyroxine 50 mcg Oral Daily ??? pantoprazole EC 40 mg Oral Daily ??? lactated ringers 10 mL/hr at 07/17/19 1008 PRN Meds: acetaminophen, lidocaine-prilocaine, loperamide Labs: Recent Results (from the past 24 hour(s)) POCT glucose Collection Time: 07/17/19 1:11 PM Result Value Ref Range GLUCOSE POC 69 (L) 70 - 99 MG/DL POCT glucose Collection Time: 07/17/19 2:19 PM Result Value Ref Range GLUCOSE POC 101 (H) 70 - 99 MG/DL POCT glucose Collection Time: 07/17/19 5:33 PM Result Value Ref Range GLUCOSE POC 141 (H) 70 - 99 MG/DL POCT glucose Collection Time: 07/17/19 7:50 PM Result Value Ref Range GLUCOSE POC 166 (H) 70 - 99 MG/DL CK (CPK) Collection Time: 07/18/19 5:05 AM Result Value Ref Range CPK 302 (H) 26 - 192 U/L MAGNESIUM Collection Time: 07/18/19 5:05 AM Result Value Ref Range MAGNESIUM 2.0 1.8 - 2.4 MG/DL CBC W/DIFF AUTOMATED Collection Time: 07/18/19 5:05 AM Result Value Ref Range WBC 5.6 4.8 - 10.8 x10'3/uL RBC 3.12 (L) 4.10 - 5.10 x10'6/uL HGB 9.4 (L) 12.0 - 16.0 G/DL HCT 29.3 (L) 36 - 46 % MCV 93.9 80 - 100 FL MCH 30.1 26.0 - 34.0 PG MCHC 32.1 31.0 - 37.0 G/DL RDW 16.4 (H) 11.5 - 14.5 % PLT 288 150 - 350 x10'3/uL CBC COMMENT AUTOMATED RBC MORPHOLOGY AND PLATELET EVALUATION NORMAL NEUTROPHILS 60.9 50 - 70 % LYMPHOCYTES 23.2 18 - 42 % MONOCYTES 7.6 2.0 - 11.0 % EOSINOPHILS 7.2 (H) 1.0 - 3.0 % BASOPHILS 1.1 (H) 0.0 - 1.0 % ABS. NEUTROPHILS TOTAL 3.39 1.69 - 7.81 x10'3/uL COMPREHENSIVE METABOLIC PANEL Collection Time: 07/18/19 5:05 AM Result Value Ref Range GLUCOSE 183 (H) 70 - 99 MG/DL BUN 16 7 - 18 MG/DL CREATININE S/P/B 0.96 0.55 - 1.02 MG/DL SODIUM 139 136 - 145 MMOL/L POTASSIUM 4.0 3.5 - 5.1 MMOL/L CHLORIDE S/P/B 102 100 - 108 MMOL/L CO2 32.7 (H) 21 - 32 MMOL/L CALCIUM 8.1 (L) 8.5 - 10.1 MG/DL BILIRUBIN TOTAL S/P/B 0.4 0.2 - 1.2 MG/DL TOTAL PROTEIN 6.4 6.4 - 8.2 G/DL ALBUMIN S/P/B 1.9 (L) 3.4 - 5.0 G/DL AST 38 (H) 15 - 37 U/L ALT 30 14 - 55 U/L ALK PHOS 36 (L) 50 - 136 U/L ANION GAP 4.3 (L) 5 - 15 MMOL/L BUN CREATININE RATIO 16.7 6 - 26 A/G RATIO 0.4 (L) 1.0 - 2.0 RATIO eGFR Non-Afr. Amer. 62 (L) >90 ML/MIN/1.73 M2 eGFR Afr. Amer. 72 (L) >90 ML/MIN/1.73 M2 POCT glucose Collection Time: 07/18/19 7:38 AM Result Value Ref Range GLUCOSE POC 131 (H) 70 - 99 MG/DL X-Ray Ct Abd+pel W Con Result Date: 07/13/2019 EXAMINATION: CT abdomen/pelvis with contrast HISTORY: Nodular, vomiting, and diarrhea. History of bilateral breast cancer status post bilateral malignant lumpectomy 6-7 years ago. COMPARISON: None. TECHNIQUE: Axial CT images of the abdomen and pelvis 100 mL of Isovue-370 given through the right antecubital fossa . Sagittal and coronal reformatted image sets. A dose lowering technique was used forthis procedure, which may include, but is not limited to, dose reduction technique, automated exposure control, the use of degenerative reconstruction, and ALARA/image gently techniques. FINDINGS: Lower chest: There is a partially imaged round potential fluid collection in the right breast measuring 4.5 cm. This could represent an abscess or chronic seroma. This could also potentially represent apartially imaged inferior portion of a breast implant although a similar finding is not seen in theleft breast. Clinical correlation recommended. There is mild bibasilar atelectasis. The heart is enl arged. There is a small pericardial effusion. Calcified subcarinal lymph nodes are noted. Upper abdomen: The liver is normal in size and contour. No evidence of hepatic mass. Small scattered benign hepatic calcifications are noted. The portal vein is patent. No cholelithiasis. No biliary ductal dilatation. No acute-appearing pancreatic abnormalities. There are calcified splenic granulomas. No adrenal masses. Kidneys: The kidneys enhance symmetrically. No hydronephrosis or perinephric stranding.No evidence of renal mass. Vascular: There is atherosclerotic disease of the abdominal aorta which remains normal caliber. No acute appearing vascular abnormalities. Bowel/mesentery: No ascites or free intraperitoneal air. No bowel obstruction. Fluid is seen throughout the small bowel and colon suggestive of a diarrheal state. There are surgical changes involving the cecum. No definite colonic orenteric inflammatory changes are identified. Pelvis: The urinary bladder is decompressed with a Reyes catheter. The uterus appears normally sized for the patient's age. No adnexal masses. There are pelvic phleboliths. No free pelvic fluid. Lymph nodes: No abdominal or pelvic lymphadenopathy. Other:A very large skin ulcer is noted underlying the left ischial tuberosity. There is a very large fluid collection demonstrating peripheral calcification in the subcutaneous fat of the anterior midline abdomen measuring approximately 9.5 x 7.5 x 15 cm (TV by AP by CC). There are also findings of hernia repair surgery along the anterior abdomen. There are no herniated bowel loops. This is most likelyrelated to chronic postoperative seroma formation. Osseous: There are multisite degenerative changes in the spine and pelvis. No acute appearing osseous abnormalities are identified. IMPRESSION: 1. Findings suggestive of a diarrheal state. 2. No bowel obstruction or visible areas of inflammation. 3. Cardiomegaly. Small pericardial effusion. 4. Partially imaged round potential fluid collection in the right breast measuring 4.5 cm. This could represent a chronic postoperative seroma or abscess. This could also potentially represent a partially imaged inferior portion of a breast implant although a similar finding is not seen in the left breast. Clinical correlation recommended (no comparisons/additional imaging examinations are available). 5. Very large 9.5 x 7.5 x 15 cm fluid collection within the subcutaneous fat of the anterior midline abdomen which demonstrates thin peripheral wall calcifications. There are underlying findings of prior hernia repair surgery in the anterior abdominal wall. This is most likely to represent a large chronic postoperative seroma. 6. Very large skin ulcer underlying the left ischial tuberosity. Interpreted By: Harlan Gallardo DO, 07/13/2019 1:[address] Cerv Spine Wo Con Result Date: [...] 07/04/2019 STAR Report Pat.Name: IRIS PASCUAL Gema.ID: [id number] .Date: 07/04/2019 Exam Time: 12:56:00 PM Study Type:TRANSESOPHAGEAL ECHO (STAR) Height: 62in Weight: 167.65lb BSA: 1.77 m2 Age: 11 1955,64Y Sex: FEMALE BP: 147/68 HR: 67 bpm Sonogrphr: Lacie Victor [facility] Pat. Stat.:Inpatient Reason for Study: Bacteremia History [...] is normal. IAS: Atrial septum appears intact. JAKOB: Trivial pericardial effusion, without tamponade physiology. AO: [...] Date: 06/30/2019 Echocardiography Report Pat.Name: IRIS PASCUAL Pat.ID: [id number] St.Date: 06/30/2019 Exam Time: 12:31:00 PM Study [...] is normal. IAS: Atrial septum appears intact. JAKOB: Trivial pericardial effusion, without tamponade physiology. AO: [...] No evidence of pulmonic valve stenosis. pulmonic regurgitation.TV: A trace of tricuspid regurgitation. No evidence [...] 1.77 cm2 Ratios IVS LA Biplane LAVol I BP 32.1 ml/m2 RA Single Plane Right Atrium MO 10.5 mm Right Atrium Sy 40.8 ml Right Atrium Sy 58.6 mm Right Atrium Sy 22.9 ml/m2 Right Atrium Sy 17 cm2 Right Ventricle Right Ventricle 31.9 mm Right Ventricle 24.4 mm Major [place] 82.7 mm MMODE TA Tricuspid Annul 12.6 mm Signed 06/30/2019 02:55 PM Kirk Seaman M.D. Assessment/Plan: Polymicrobial Bacteremia MRSA, E faecalis Suspect??2/2 multiple [...] 16July 5-last dose of daptomycin is tomorrow 07/16: No fevers, consider repeat blood cultures if warranted 07/17: Patient completed daptomycin dosing, will wait for wound cultures to determine if patient needs further antibiotics aside from fluconazole for UTI ?? Multiple pressure ulcers stage 2-3 POA Wound care c/s See media As above July 2-left gluteal ulcer has been covered by diarrhea, concern for ongoing infection -CT pending to evaluate for possible extension into bone concern for osteomyelitis Continue wound care treatment July 3-CT shows no evidence of osteomyelitis, continue treatment as above. ??Patient to follow-up with wound care as an outpatient July 14-wound care consult pending and appreciated July 5-appreciate wound care consult. ??Patient is now scheduled for incision and drainage of left decubitus ulcer 07/16: Patient undergo I&D today with general surgery 07/17: Patient underwent I&D yesterday, cultures pending, wound VAC in place ?? Diarrhea May 2-patient initially had constipation, has been started on Colace and milk of magnesia. ??Now having diarrhea. ??Patient has been tested for C. difficile which was negative less than 1 week ago. ??Current diarrhea is mushy but not watery and [...] May 4-urine culture shows greater than 100,000 Crisleda albicans Will discontinue ceftriaxone and start IV Diflucan with plan to continue IV for 2 days and then convert to oral Diflucan on discharge May 5-continue IV Diflucan as above 5/6: Continue Diflucan 07/17: Continue plan of care ?? ABDIRASHID May 3-resolving, creatinine down to [...] at 7.8, no signs of active bleeding 5/6: Patient hemoglobin remained stable at 7.7, however, according to surgery, they prefer patient be at hemoglobin of 8. Therefore, will initiate blood transfusion x1 unit 07/17: Hemoglobin stable ?? Severe Sepsis without Shock??: Resolved Patient [...] Lantus daily, add meal time insulin May 3- A1c 11 ?? ABDIRASHID on CKD 3: resolved Patient presented with BUN of 21 and SCr of 1.31, up from 0.92 last month. Hydration with IVF Resolved. Off IVF ?? Obesity, BMI 31.21 Recommend lifestyle and behavioral modifications ?? Hypothyroidism Increased levothyroxine Follow up with PCP and repeat labs in 4-6 weeks During my evaluation and management, personal protective equipment was used and reasonable measureswere taken to reduce spread based on the current recommendations from the CDC and WHO DONOVAN OLEARY APRN 07/18/2019 9:24 AM Cosigned by Ekaterina Barlow MD at 07/18/2019 10:20 PM CDT * Rosana Arguelles, PT - 07/17/2019 3:20 PM CDT 07/17/19 1520 Therapy Visit Subjective (Patient underwent I&D with wound vac placement in the OR today. Will attempt PT tomorrow. Spoke with RN for confirmation. ) * Yoana Ledbetter RN - 07/17/2019 1:29 PM CDT Problem: Mobility - Impaired Goal: Able to use ambulatory assistive device appropriately Outcome: Progressing Goal: Knowledge of need for increased mobility Outcome: Progressing Problem: Pain control/comfort Goal: Promote pain control/comfort Outcome: Progressing Problem: Skin integrity, Impaired-wound Goal: Absence of new skin breakdown Outcome: Progressing * Genesis Castellanos LCSW - 07/17/2019 12:12 PM CDT Patient is now an inpatient. Patient discharged from [facility] SWING BED on 07/16/19 , patient used 7 days starting with day 1. Discharge plan remains for patient to transfer to [facility] in [facility], Telephone number there is [phone] fax number is [phone] and call Cherry at [phone] for updates. 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 * Viviana Beard RN - 07/17/2019 11:01 AM CDT 5/6 inpatient IM letter signed by the patient this am- understood acknowledged * Renay Barba OT - 07/17/2019 10:14 AM CDT OT evaluation orders received as patient transferred back to inpatient status from [facility]. Evaluation not completed this date as patient is scheduled for surgery this AM. Will attempt at later time/date. documented in this encounter H&P Notes * Donovan Oleary APRN - 07/17/2019 10:07 AM CDT Hospitalist History and Physical Patient: Iris Pascual Date: 07/17/2019 female, 64-year-old Admit Date: 07/16/2019 Attending: Donovan Oleary APRN REASON FOR ADMISSION: Decubitus ulcers HISTORY OF PRESENT ILLNESS: Iris Pascual is a 64-year-old female that presented to the hospital for swing bed program given bacteremia due to LLE cellulitis requiring 7d of cont Daptomycin. ??Patient's hospital course wascomplicated by diarrhea, which was C. difficile negative and found to be secondary to stool softeners and resolved after discontinuing stool softeners. Patient also had a urinary tract infection which was initially treated with ceftriaxone, but then found to be 100,000 Criselda and is currently being treated with IV Diflucan. Patient also found to have worsening left ischial decubitus ulcer. Woundcare consult was obtained and recommendation was made for wound to be surgically treated with incision and drainage. At current, patient denies any chest pain, dyspnea, dizziness, light headedness, headache, syncope, arthralgia, numbness/tingling, nausea/vomiting, fever/chills, cough, dysuria, polyuria, polyphagia, polydipsia, blurred vision, double vision, palpitations, hematuria, hematochezia, hematemesis, hemoptysis, abdominal pain, constipation, diarrhea, incontinence, anorexia, and unintended weight loss. Allergy Allergies Allergen Reactions ??? Codeine Nausea and Vomiting Medication list Medications Prior to Admission Medication Sig Dispense [...] (three) times daily. 90 capsule 0 ??? insulin glargine 100 UNIT/ML injection [...] by mouth daily. 30 tablet 0 ??? sodium chloride 0.9 % SOLN 100 mL with DAPTOmycin 500 MG SOLR 625 mg Inject 625 mg into the vein daily. Through 07/16 1 ampule 0 No current facility-administered medications on file prior to encounter. Current Outpatient Medications on File Prior to Encounter Medication Sig Dispense Refill ??? aspirin 325 [...] (three) times daily. 90 capsule 0 ??? insulin glargine 100 UNIT/ML injection [...] by mouth daily. 30 tablet 0 ??? sodium chloride 0.9 % SOLN 100 mL with DAPTOmycin 500 MG SOLR 625 mg Inject 625 mg into the vein daily. Through 07/16 1 ampule 0 Past Medical History Past Medical History: Diagnosis [...] file Gets together: Not on file Attends anabaptist service: Not on file Active member of [...] History Family History Family history unknown: Yes REVIEW OF SYSTEMS: A 14 point review of systems was taken and pertinent positive as per HPI PHYSICAL EXAMINATION: Vital 24 Hour Range Most Recent Value Temperature Temp Min: 98.8 ??F (37.1 ??C) Max: 98.8 ??F (37.1 ??C) 98.8 ??F (37.1 ??C) Pulse Pulse Min: 73 Max: 78 78 Respiratory Resp Min: 16 Max: 16 16 Blood Pressure BP Min: 116/57 Max: 130/73 116/57 Pulse Oximetry SpO2 Min: 98 % Max: 98 % 98 % O2 No data recorded Vital Most Recent Value First Value Weight 80.9 kg (178 lb 5.6 oz) Weight: 80.9 kg (178 lb 5.6 oz) Height 5' 2 (157.5 cm) Height: 5' 2 (157.5 cm) BMI 32.7 N/A Physical Exam: GENERAL: No acute distress, well developed, and alert HEENT: Mucous membranes moist, neck supple, trachea midline RESPIRATORY: Respirations even and unlabored, clear breath sounds, no wheezes, or crackles noted CARDIAC: Regular rate and rhythm, no murmur, gallops, or JVD, no peripheral edema GI: Nontender, nondistended, bowel sounds present, no obvious masses : No suprapubic tenderness upon palpation, no CVAT MUSC: ROM grossly intact NEURO: Alert and oriented, no gross deficit, cranial nerves intact, PERRLA SKIN: Multiple decubitus ulcers, located to bilateral heels, sacral/coccyx area LYMPH: No obvious lymphadenopathy PSYCH: Alert, appropriate, normal behavior, normal judgement and thought content Intake/Output last 3 shifts: I/O last 3 completed shifts: In: - Out: 600 [Urine:600] Labs: Recent Results (from the past 24 hour(s)) POCT glucose Collection Time: 07/16/19 11:11 AM Result Value Ref Range GLUCOSE POC 198 (H) 70 - 99 MG/DL POCT glucose Collection Time: 07/16/19 4:17 PM Result Value Ref Range GLUCOSE POC 152 (H) 70 - 99 MG/DL POCT glucose Collection Time: 07/16/19 8:13 PM Result Value Ref Range GLUCOSE POC 182 (H) 70 - 99 MG/DL BASIC METABOLIC PANEL Collection Time: 07/17/19 4:00 AM Result Value Ref Range GLUCOSE 103 (H) 70 - 99 MG/DL BUN 14 7 - 18 MG/DL CREATININE S/P/B 0.88 0.55 - 1.02 MG/DL SODIUM 141 136 - 145 MMOL/L POTASSIUM 4.0 3.5 - 5.1 MMOL/L CHLORIDE S/P/B 103 100 - 108 MMOL/L CO2 31.7 21 - 32 MMOL/L CALCIUM 8.2 (L) 8.5 - 10.1 MG/DL ANION GAP 6.3 5 - 15 MMOL/L BUN CREATININE RATIO 15.9 6 - 26 eGFR Non-Afr. Amer. 69 (L) >90 ML/MIN/1.73 M2 eGFR Afr. Amer. 80 (L) >90 ML/MIN/1.73 M2 CBC W/DIFF AUTOMATED Collection Time: 07/17/19 4:00 AM Result Value Ref Range WBC 4.9 4.8 - 10.8 x10'3/uL RBC 2.66 (L) 4.10 - 5.10 x10'6/uL HGB 7.7 (L) 12.0 - 16.0 G/DL HCT 24.7 (L) 36 - 46 % MCV 92.9 80 - 100 FL MCH 28.9 26.0 - 34.0 PG MCHC 31.2 31.0 - 37.0 G/DL RDW 16.8 (H) 11.5 - 14.5 % PLT 309 150 - 350 x10'3/uL CBC COMMENT AUTOMATED RBC MORPHOLOGY AND PLATELET EVALUATION NORMAL NEUTROPHILS 56.8 50 - 70 % LYMPHOCYTES 26.8 18 - 42 % MONOCYTES 8.4 2.0 - 11.0 % EOSINOPHILS 7.0 (H) 1.0 - 3.0 % BASOPHILS 1.0 0.0 - 1.0 % ABS. NEUTROPHILS TOTAL 2.78 1.69 - 7.81 x10'3/uL MAGNESIUM Collection Time: 07/17/19 4:00 AM Result Value Ref Range MAGNESIUM 2.2 1.8 - 2.4 MG/DL TYPE & SCREEN Collection Time: 07/17/19 4:00 AM Result Value Ref Range UNITS ORDERED 1 ABO/RH O POSITIVE ANTIBODY SCREEN NEGATIVE SAMPLE EXPIRATION: 07/20/2019,2359 UNIT NUMBER [id number] PRODUCT: PC LEUKOPOOR UNIT DIVISION 00 UNIT STATUS ALLOCATED TRANSFUSION STATUS OK TO TRANSFUSE CROSSMATCH COMPATIBLE POCT glucose Collection Time: 07/17/19 7:17 AM Result Value Ref Range GLUCOSE POC 73 70 - 99 MG/DL Imaging & Other Studies Ct Abd+pel W Con Result Date: 07/13/2019 EXAMINATION: CT abdomen/pelvis with contrast HISTORY: Nodular, vomiting, and diarrhea. History of bilateral breast cancer status post bilateral malignant lumpectomy 6-7 years ago. COMPARISON: None. TECHNIQUE: Axial CT images of the abdomen and pelvis 100 mL of Isovue-370 given through the right antecubital fossa . Sagittal and coronal reformatted image sets. A dose lowering technique was used forthis procedure, which may include, but is not limited to, dose reduction technique, automated exposure control, the use of degenerative reconstruction, and ALARA/image gently techniques. FINDINGS: Lower chest: There is a partially imaged round potential fluid collection in the right breast measuring 4.5 cm. This could represent an abscess or chronic seroma. This could also potentially represent apartially imaged inferior portion of a breast implant although a similar finding is not seen in theleft breast. Clinical correlation recommended. There is mild bibasilar atelectasis. The heart is enl arged. There is a small pericardial effusion. Calcified subcarinal lymph nodes are noted. Upper abdomen: The liver is normal in size and contour. No evidence of hepatic mass. Small scattered benign hepatic calcifications are noted. The portal vein is patent. No cholelithiasis. No biliary ductal dilatation. No acute-appearing pancreatic abnormalities. There are calcified splenic granulomas. No adrenal masses. Kidneys: The kidneys enhance symmetrically. No hydronephrosis or perinephric stranding. No evidence of renal mass. Vascular: There is atherosclerotic disease of the abdominal aorta whichremains normal caliber. No acute appearing vascular abnormalities. Bowel/mesentery: No ascites or free intraperitoneal air. No bowel obstruction. Fluid is seen throughout the small bowel and colon suggestive of a diarrheal state. There are surgical changes involving the cecum. No definite colonic or enteric inflammatory changes are identified. Pelvis: The urinary bladder is decompressed with a Reyes catheter. The uterus appears normally sized for the patient's age. No adnexal masses. There are pelvic phleboliths. No free pelvic fluid. Lymph nodes: No abdominal or pelvic lymphadenopathy. Other: A very large skin ulcer is noted underlying the left ischial tuberosity. There is a very large fluid collection demonstrating peripheral calcification in the subcutaneous fat of the anterior midlineabdomen measuring approximately 9.5 x 7.5 x 15 cm (TV by AP by CC). There are also findings of hernia repair surgery along the anterior abdomen. There are no herniated bowel loops. This is most likely related to chronic postoperative seroma formation. Osseous: There are multisite degenerative change s in the spine and pelvis. No acute appearing osseous abnormalities are identified. IMPRESSION: 1. Findings suggestive of a diarrheal state. 2. No bowel obstruction or visible areas of inflammation. 3. Cardiomegaly. Small pericardial effusion. 4. Partially imaged round potential fluid collection in the right breast measuring 4.5 cm. This could represent a chronic postoperative seroma or abscess. This could also potentially represent a partially imaged inferior portion of a breast implant although a similar finding is not seen in the left breast. Clinical correlation recommended (no comparisons/additional imaging examinations are available). 5. Very large 9.5 x 7.5 x 15 cm fluid collection within the subcutaneous fat of the anterior midline abdomen which demonstrates thin peripheral wall calcifications. There are underlying findings of prior hernia repair surgery in the anterior abdominal wall. This is most likely to represent a large chronic postoperative seroma. 6. Very large skin ulcer underlying the left ischial tuberosity. Interpreted By: Harlan Gallardo DO, 07/13/2019 1:[address] Cerv Spine Wo Con Result Date: [...] STAR Report Pat.Name: IRIS PASCUAL Nathan Ribeiro.ID: [id number] .Date: 07/04/2019 Exam Time: 12:56:00PM Study Type:TRANSESOPHAGEAL ECHO (STAR) Height: 62in Weight: 167.65lb BSA: 1.77 m2 Age: 11 1955,64Y Sex: FEMALE BP: 147/68 HR: 67 bpm Sonogrphr: Lacie Victor [facility] Pat. Stat.:Inpatient Reason for Study: Bacteremia History [...] tolerated the procedure well without any apparent complications.LV: The left ventricular systolic function is normal. Estimated left ventricular ejection fraction is 55-60%. Moderate concentric left ventricular hypertrophy. WM: Wall motion appears normal in all segments. RV: The right ventricle size is normal. The right ventricular function is normal. LA: Left atrial appendage is normal. Left atrial appendage velocity is normal. The left atrium was not well visualized in all views. RA: The right atrial size is normal. IAS: Atrial septum appears intact. JAKOB: Trivial pericardial effusion, without tamponade physiology. AO: [...] appearance of the plantar fascia. Minor chronic deg enerative change tibiotalar and calcaneocuboid articulations. There is some mild diffuse nonspecific edema involving the intrinsic musculature of the foot likely related to chronic diabetic myopathy. IMPRESSION: 1) Soft tissue ulceration involving the right heel with no evidence of soft tissue abscess. 2. No evidence of osteomyelitis. Use Echocardiogram W Con Result Date: 06/30/2019 Echocardiography Report Pat.Name: IRIS PASCUAL Gema.ID: [id number] .Date: 06/30/2019 Exam Time: 12:31:00 PM Study Type:ECHO [...] size is normal. IAS: Atrialseptum appears intact. JAKOB: Trivial pericardial effusion, without tamponade physiology. AO: Aorta is normal. PA: Estimated right atrial pressure of 5 mmHg. SVn: Inferior vena cava is normal. Inferior vena cava shows >50% collapse with respiration consistent with normal right atrial pressure. Other: Technically difficult exam due to body habitus. AV: The aortic valve is trileaflet. No evidenceof aortic valve stenosis. No evidence of aortic regurgitation. MV: Trace mitral regurgitation. No evidence of mitral valve stenosis. PV: No evidence of pulmonic valve stenosis. pulmonic regurgitation. TV: A trace of tricuspid regurgitation. No evidence of tricuspid valve stenosis. ++++++++++++++++++++++++++++++++++++ MEASUREMENTS: ++++++++++++++++++++++++++++++++++++ DOPPLER LVOT LVOTpkPG 11 mmHgLVOTmnPG 5 mmHg LVOTpkVel 164 cm/s (70-110) LVOT [...] MV pkPG 3 mmHg MV pkA 80.5 cm/sPV Forward Flow PV pkVel 76.9 cm/s (60-90) [...] 1.77 cm2 Ratios IVS LA Biplane LAVol I BP 32.1 ml/m2 RA Single Plane Right Atrium MO 10.5 mm Right Atrium Sy 40.8 ml Right Atrium Sy 58.6 mm Right Atrium Sy 22.9 ml/m2 Right Atrium Sy 17 cm2 Right Ventricle Right Ventricle 31.9 mm Right Ventricle 24.4 mm Major [place] 82.7 mm MMODE TA Tricuspid Annul 12.6 mm Signed 06/30/2019 02:55 PM Kirk Seaman M.D. No results found for this visit on 07/16/19. Assessment & Plan Polymicrobial Bacteremia MRSA, E faecalis Suspect??2/2 multiple [...] 16July 5-last dose of daptomycin is tomorrow 07/16: No fevers, consider repeat blood cultures if warranted ?? Multiple pressure ulcers stage 2-3 POA Wound care c/s See media As above July 2-left gluteal ulcer has been covered by diarrhea, concern for ongoing infection -CT pending to evaluate for possible extension into bone concern for osteomyelitis Continue wound care treatment May 3-CT shows no evidence of osteomyelitis, continue treatment as above. ??Patient to follow-up with wound care as an outpatient July 4-wound care consult pending and appreciated July 5-appreciate wound care consult. Patient is now scheduled for incision and drainage of left decubitus ulcer 07/16: Patient undergo I&D today with general surgery ?? Diarrhea May 2-patient initially had constipation, has been started on Colace and milk of magnesia. ??Now having diarrhea. ??Patient has been tested for C. difficile which was negative less than 1 week ago. ??Current diarrhea is mushy but not watery and [...] discharge May 5-continue IV Diflucan as above 5/6: Continue Diflucan ?? ABDIRASHID May 3-resolving, creatinine down to [...] at 7.8, no signs of active bleeding 5/6: Patient hemoglobin remained stable at 7.7, however, according to surgery, they prefer patient be at hemoglobin of 8. Therefore, will initiate blood transfusion x1 unit ?? Severe Sepsis without Shock??: Resolved Patient [...] Lantus daily, add meal time insulin May 3- A1c 11 ?? ABDIRASHID on CKD 3: resolved Patient presented with BUN of 21 and SCr of 1.31, up from 0.92 last month. Hydration with IVF Resolved. Off IVF ?? Obesity, BMI 31.21 Recommend lifestyle and behavioral modifications Hypothyroidism Increased levothyroxine Follow up with PCP and repeat labs in 4-6 weeks During my evaluation and management, personal protective equipment was used and reasonable measureswere taken to reduce spread based on the current recommendations from the CDC and WHO DONOVAN OLEARY APRN 07/17/2019 10:07 AM Cosigned by Ekaterina Barlow MD at 07/18/2019 12:00 AM CDT Associated attestation - Ekaterina Barlow MD - 07/18/2019 12:00 AM CDT I, EKATERINA BARLOW MD, performed a History and Physical examination of the patient and discussed the management with the Advanced Practice Provider (ANGLE). I reviewed the ANGLE's note and agree with thefindings and plan of care, except as I have documented. 64 yr female hx bilateral Breast Cac[place], HTN, PVD, developed cellulitis LLE,with enterococcus bacteremia due multiple wounds. Negative STAR. diarrhea. ID recommended Daptomycin through 07/16. Wound deteriorated with malodorous drainage from left ischial decubitus ulcer. Readmitted from Swing bed to inpatient. Underwent sharp debridement of necrotic wound with abscess Lungs: clear Heart: RRR NL S1S2 Abd: soft, herni * Stanislav Bishop MD - 07/17/2019 7:45 AM CDT Date / Time of Admission: 07/16/2019 5:10 PM Subjective: HPI: Iris Pascual is a 64-year-old female known to me with multiple medical conditions listed below this include but are not limited to diabetes, hypertension, history of breast cancer, peripheral vascular disease schizophrenia and Hypothyrpoidism. Is being treated biotic following sepsis and bacteremia secondary to infected skin ulcers. I evaluated the patient recently for chronic seromas of the anterior abdominal wall and right breast area. Known to have multiple skin ulcers and she was evaluated recently by wound care and gluteal fold wound debridement was recommended. Patient denies any pain at the area. No fever or chills. ?? PMHx: .She has a past medical history of Cancer (CMS/HCC), Diabetes mellitus (CMS/HCC), Disease of thyroid gland, Hypertension, PVD (peripheral vascular disease) (CMS/HCC), and Schizophrenia (CMS/HCC). PSHx: Her has a past surgical history that includes Breast surgery (Bilateral); Knee surgery (Right); removal of ovary(s) (Left); and upper arm/elbow surgery unlisted (Right). SHx: She reports that she has never smoked. She has never used smokeless tobacco. She reports that she does not drink alcohol or use drugs. FHx: Her Family history is unknown by patient. Allergies: Review of patient's allergies indicates: Codeine MEDS: Prior to Admission Medications Prescriptions Last Dose Informant Patient Reported? Taking? aspirin 325 MG tablet 07/16/2019 at Unknown time No Yes Sig: Take 1 tablet (325 mg total) by mouth daily. atorvastatin 40 MG tablet 07/16/2019 at Unknown time No Yes Sig: Take 1 tablet (40 mg total) by mouth daily. chlorthalidone 25 MG tablet 07/16/2019 at Unknown time No Yes Sig: Take 1 tablet (25 mg total) by mouth daily. collagenase ointment 07/16/2019 at Unknown time No Yes Sig: Apply topically daily for 10 days. gabapentin 300 MG capsule 07/16/2019 at Unknown time No Yes Sig: Take 1 capsule (300 mg total) by mouth 3 (three) times daily. insulin glargine 100 UNIT/ML injection (VIAL) 07/15/2019 at Unknown time No Yes Sig: Inject 15 Units into the skin nightly at bedtime. levothyroxine 50 MCG tablet 07/16/2019 at Unknown time No Yes Sig: Take 1 tablet (50 mcg total) by mouth daily. Patient taking differently: Take 75 mcg by mouth daily. pantoprazole EC 40 MG tablet 07/16/2019 at Unknown time No Yes Sig: Take 1 tablet (40 mg total) by mouth daily. sodium chloride 0.9 % SOLN 100 mL with DAPTOmycin 500 MG SOLR 625 mg 07/16/2019 at Unknown time No Yes Sig: Inject 625 mg into the vein daily. Through 07/16 Facility-Administered Medications: None Review of Systems: All systems reviewed and are negative except what is mentioned in HPI. Objective: VITALS: Filed Vitals: 07/16/19202207/17/19 0135 BP: 116/57 Pulse: 78 Resp: 16 Temp: 98.8 ??F (37.1 ??C) TempSrc: Oral SpO2: 98% Weight: 80.9 kg (178 lb 5.6 oz) Height: 5' 2 (1.575 m) EXAM: General appearance: alert, no distress, cooperative, appears stated age Head: Normocephalic, without obvious abnormality, atraumatic Eyes: conjunctivae/corneas clear. Pupils equal, round, reactive to light. Extraocular Movements intact. Fundi benign Throat: Lips, mucosa, and tongue normal. Teeth and gums normal Neck: supple, symmetrical, trachea midline, no adenopathy, thyroid: not enlarged, symmetric, no tenderness/mass/nodules, no carotid bruit and no Jugular Venous Distention Lungs: clear to auscultation bilaterally Heart: regular rate and rhythm, S1, S2 normal, no murmur, click, rub or gallop Abdomen: soft, non-tender. Bowel sounds normal. No masses, no organomegaly Rectal: Deferred Extremities: extremities normal, atraumatic, no cyanosis or edema Pulses: 2+ and symmetric At least 8 x 7 cm wound in the left gluteal fold Shallow ulcers superficial ulcer distal third of the left calf 2 x 2.5cm,surrounding dry skin,no cellulitis , abscess or drainage shallow Dry eschar 4 X 4.5 cm on the right heel, surrounding dry skin,no abscess, cellulitis or drainage. Neurologic: Alert and oriented X 3. Normal strength and tone. Skin: No obvious lesions, masses or rash. [I reviewed the recent laboratories and pertinent values were noted.] Recent Labs Lab 07/14/19 0913 07/15/19 0555 07/16/19 0320 07/17/19 0400 WBC 6.9 6.0 5.9 4.9 RBC 2.70* 2.71* 2.58* 2.66* HGB 7.8* 7.7* 7.3* 7.7* HCT 24.9* 25.1* 23.6* 24.7* NA 139 140 138 -- K 3.5 3.5 3.8 -- CL 101 103 102 -- CO2 32.5* 31.0 30.3 -- AGAP 5.5 6.0 5.7 -- BUN 23* 18 15 -- CR 1.05* 0.94 0.83 -- BUNCREATININ 21.9 19.1 18.1 -- GFRNON 56* 64* 75* -- GFR 65* 74* 86* -- GLU 141* 153* 106* -- CA 8.1* 8.1* 7.6* -- No results for input(s): APTT, INR, PTT in the last 168 hours. IMAGING: [I reviewed the digital images of the patient's imaging studies.] @IMAGES@ Assessment: Active Problems: Infected decubitus ulcer SNOMED CT(R): PRESSURE ULCER Skin ulcers involving the left of right heel and left gluteal fold Condition of wound care we will proceed with wound debridement of the left gluteal possible placement of wound VAC Current wound care for the other ulcers Advance Directives: Full Code Plan: N.p.o., IV fluids For surgery Please transfuse RBC to keep Hb above 8. Consult w Orders Placed This Encounter Procedures ??? Inpatient Consult to Wound Care (Provider) Standing Status: Standing Number of Occurrences: 1 Order Specific Question: Reason for Consult? Answer: wound clinic [facility] Order Specific Question: Has the consulting provider been contacted? Answer: Yes Order Specific Question: Who was the provider consulted? Answer: message left Order Specific Question: Location: Answer: [facility] ??? Inpatient Consult to General Surgery Standing Status: Standing Number of Occurrences: 1 Order Specific Question: Reason for Consult? Answer: wound debridment Order Specific Question: Has the consulting provider been contacted? Answer: Yes Order Specific Question: Location: Answer: B Discussed Blood/Blood Products; would accept if recommended?: Yes By: STANISLAV BISHOP MD, 07/17/2019, 7:45 AM Primary Care Physician: Don Branham MD documented in this encounter Nursing Notes * Mary Beth Foreman RN - 07/19/2019 1:16 PM CDT Nursing report called to Sven at [facility] MARY BETH FOREMAN RN * Mary Beth Foreman RN - 07/19/2019 1:05 PM CDT Spoke to Jamel with [facility] to stop therapy on wound vac [id number]. REF [id number]. MARY BETH FOREMAN RN * Mary Beth Foreman RN - 07/19/2019 12:51 PM CDT Attempted to call nursing report to [facility] three times. Was transferred to a voicemail.[facility] answered and made aware that ambulance is headed there way and it [place] [address] MARY BETH FOREMAN RN * Mary Beth Foreman RN - 07/19/2019 11:00 AM CDT Midline left in place per Carlota Oleary NP * Yoana Ledbetter RN - 07/17/2019 2:51 PM CDT [facility] aware to send replacement to [facility] and pt needs wound vac at [facility]. Ref# [id number] documented in this encounter OR Notes * Op Note - Stanislav Bishop MD - 07/17/2019 11:43 AM CDT Date of Procedure: 07/17/19 Preoperative Diagnosis: Procedure(s): Procedure(s): Sharp excisional Debridement of left gluteal fold decubitus ulcer 5 x 6 cm, wound VAC placement Post-operative Diagnosis: Same as above Surgeon(s): Stanislav Bishop MD Radiation Control Technician: Circulating Nurse 1: Kelly Sr RN Scrub Person 1: Lucía Schilling LPN Anesthesia: TIVA Estimated Blood Loss: 30 ml Specimens: Fluid and tissue sent for microbiology complications: Non-immediate Disposition: PACU, to the floor Condition: Stable Indications: Iris Pascual is a 64-year-old female is here for debridement of necrotic decubitus ulcer of the left gluteal region and possible placement of wound VAC. The procedure, risks and possible complications were explained to the patient. The possible risks and complications include but are not limited to bleeding, recurrence, vascular or nerve injuries,anorectal injuries. The patient agreed to proceed and informed consent was obtained. Risks of infection with COVID-19 was discussed with patient.She agreed to proceed. Description of procedure: The patient was brought to the operating room and total IV anesthesia induced. The patient was placed in the right lateral decubitus. A time-out was completed verifying correct patient, procedure, site, positioning, the patient was prepped and draped in the usual sterile fashion. Examination of theleft gluteal region showed 5 cm x 6 cm necrotic wound at the gluteal fold. Skin edges is excoriated active bleeding. The wound was sharply debrided using a 10 blade as well as electrocautery. Debrided down to the muscles. There were multiple pockets of pus underneath the necrotic tissue. Both fluidand tissue from the wound for microbiology. Was irrigated very well with hydrogen peroxide and thennormal saline. This was maintained using both electrocautery and pressure. Hemostasis was maintained wound VAC was without complications. Instruments, sponges count was correct.The patient tolerated the procedure very well and was awakened and transferred to the PACU in stable condition. STANISLAV BISHOP MD, 07/17/2019, 11:43 AM documented in this encounter Plan of Treatment Pending Results Name Type Priority Associated Diagnoses Date /Time RBC UNITS Blood Bank Routine 07/17/2019 4:0 0 AM CDT Transfuse RBC Nursing Transfusion Routine 11:04 AM CDT Transfuse RBC Nursing Transfusion Routine 11:04 AM CDT documented as of this encounter Procedures Procedure Name Priority Date/Time Associated Diagnosis Comments POCT GLUCOSE - CHONG DOCKED DEVICE Routine 07/19/2019 11:16 AM CDT POCT GLUCOSE - CHONG DOCKED DEVICE Routine 07/19/2019 7:23 AM CDT COMPREHENSIVE METABOLIC PANEL Routine 07/19/2019 4:40 AM CDT CBC W/DIFF AUTOMATED Routine 07/19/2019 4:40 AM CDT MAGNESIUM Routine 07/19/2019 4:40 AM CDT POCT GLUCOSE - CHONG DOCKED DEVICE Routine 07/18/2019 7:19 PM CDT POCT GLUCOSE - CHONG DOCKED DEVICE Routine 07/18/2019 4:38 PM CDT POCT GLUCOSE - CHONG DOCKED DEVICE Routine 07/18/2019 11:35 AM CDT POCT GLUCOSE - CHONG DOCKED DEVICE Routine 07/18/2019 7:38 AM CDT COMPREHENSIVE METABOLIC PANEL Routine 07/18/2019 5:05 AM CDT CBC W/DIFF AUTOMATED Routine 07/18/2019 5:05 AM CDT MAGNESIUM Routine 07/18/2019 5:05 AM CDT CK (CPK) Routine 07/18/2019 5:05 AM CDT POCT GLUCOSE - CHONG DOCKED DEVICE Routine 07/17/2019 7:50 PM CDT POCT GLUCOSE - CHONG DOCKED DEVICE Routine 07/17/2019 5:33 PM CDT POCT GLUCOSE - CHONG DOCKED DEVICE Routine 07/17/2019 2:19 PM CDT POCT GLUCOSE - CHONG DOCKED DEVICE Routine 07/17/2019 1:11 PM CDT TRANSFUSE RED BLOOD CELLS Routine 07/17/2019 11:04 AM CDT CULTURE, ANAEROBIC Routine 07/17/2019 11 :00 AM CDT CULTURE, ANAEROBIC Routine 07/17/2019 11 :00 AM CDT DEBRIDEMENT BUTTOCK 07/17/2019 9 :52 AM CDT Left gluteal fold wound, decu ulcer POCT GLUCOSE - CHONG DOCKED DEVICE Routine 07/17/2019 7:17 AM CDT RBC UNITS Routine 07/17/2019 4:00 AM CDT TYPE & SCREEN Routine 07/17/2019 4:00 AM CDT BASIC METABOLIC PANEL Routine 07/17/2019 4:00 AM CDT CBC W/DIFF AUTOMATED Routine 07/17/2019 4:00 AM CDT MAGNESIUM Routine 07/17/2019 4:00 AM CDT POCT GLUCOSE - CHONG DOCKED DEVICE Routine 07/16/2019 8:13 PM CDT documented in this encounter Results * (ABNORMAL) POCT glucose (07/19/2019 11:16 AM CDT) [facility] GLUCOSE POC 146(H) 70 - 99 MG/DL 07/19/2019 11:17 AM CDT [facility] ORDERS INTERFACE 07/19/2019 11:1 6 AM CDT Donovan Oleary APRN POCT ORDERABLES - DEVICE Final Result [facility] ORDERS INTERFACE US * POCT glucose (07/19/2019 7:23 AM CDT) GLUCOSE POC 84 70 - 99 MG/DL 07/19/2019 7:46 AM CDT [facility] ORDERS INTERFACE 07/19/2019 7:23 AM CDT Donovan Oleary APRN POCT ORDERABLES - DEVICE Final Result [facility] ORDERS INTERFACE US * (ABNORMAL) COMPREHENSIVE METABOLIC PANEL (07/19/2019 4:40 AM CDT) GLUCOSE 86 70 - 99 MG/DL 07/19/2019 6:01 AM CDT [facility] BUN 16 7 - 18 MG/DL 07/19/2019 6:01 AM CDT [facility] CREATININE S/P/B 0.83 0.55 - 1.02 MG/DL 07/19/2019 6:01 AM CDT [facility] SODIUM S/P/B 141 136 - 145 MMOL/L 07/19/2019 6:01 AM T [facility] POTASSIUM S/P/B 3.8 3.5 - 5.1 MMOL/L 07/19/2019 6:01 AM CDT [facility] CHLORIDE S/P/B 103 100 - 108 MMOL/L 07/19/2019 6:01 AM T [facility] CO2 32.8(H) 21 - 32 MMOL/L 07/19/2019 6:01 AM CDT [facility] CALCIUM S/P/B 8.7 8.5 - 10.1 MG/DL 07/19/2019 6:01 AM [facility] BILIRUBIN TOTAL S/P/B 0.4 0.2 - 1.2 MG/DL 07/19/2019 6:01 AM [facility] Comment: THIS ASSAY IS NOT RECOMMENDED FOR PATIENTS UNDERGOING TREATMENT WITH ELTROMBOPAG DUE TO THE POTENTIAL FOR FALSELY ELEVATED RESULTS. TOTAL PROTEIN S/P/B 6.7 6.4 - 8.2 G/DL 07/19/2019 6:01 AM [facility] ALBUMIN S/P/B 2.1(L) 3.4 - 5.0 G/DL 07/19/2019 6:01 AM [facility] AST 42(H) 15 - 37 U/L 07/19/2019 6:01 AM [facility] ALT 31 14 - 55 U/L 07/19/2019 6:01 AM [facility] ALKALINE PHOSPHATASE S/P/B 35(L) 50 - 136 U/L 07/19/2019 6:01 AM [facility] ANION GAP 5.2 5 - 15 MMOL/L 07/19/2019 6:01 AM [facility] BUN CREATININE RATIO 19.3 6 - 26 07/19/2019 6:01 AM [facility] A/G RATIO 0.5(L) 1.0 - 2.0 RATIO 07/19/2019 6:01 AM [facility] EGFR NON-AFR. AMER. 75(L) >90 ML/MIN/1.7 3 M2 07/19/2019 6:01 AM [facility] EGFR AFR. AMER. 86(L) >90 ML/MIN/1.7 3 M2 07/19/2019 6:01 AM [facility] Comment: NOTE: eGFR is not calculated for patients <18 years of age. This is an estimated GFR (CKD EPI) and should not be used for calculating drug doses. 07/19/2019 4:40 AM CDT Donovan Oleary APRN LABORATORY Final Re sult [facility] [address] [place] [address], [place] [phone] * (ABNORMAL) CBC W/DIFF AUTOMATED (07/19/2019 4:40 AM CDT) [facility] WBC 5.8 4.8 - 10.8 x10'3/uL 07/19/2019 5:16 AM CDT [facility] RBC 3.36(L) 4.10 - 5.10 x10'6/uL 07/19/2019 5:16 AM CDT [facility] HGB 9.7(L) 12.0 - 16.0 G/DL 07/19/2019 5:16 AM CDT [facility] HCT 31.8(L) 36 - 46 % 07/19/2019 5:16 AM CDT [facility] MCV 94.6 80 - 100 FL 07/19/2019 5:16 AM CDT [facility] MCH 28.9 26.0 - 34.0 PG 07/19/2019 5:16 AM CDT [facility] MCHC 30.5(L) 31.0 - 37.0 G/DL 07/19/2019 5:16 AM CDT [facility] RDW 16.5(H) 11.5 - 14.5 % 07/19/2019 5:16 AM CDT [facility] PLT 290 150 - 350 x10'3/uL 07/19/2019 5:16 AM CDT [facility] CBC COMMENT AUTOMATED RBC MORPHOLOGY AND PLATELET EVALUATION NORMAL 07/19/2019 5:16 AM CDT [facility] NEUTROPHILS % 56.8 50 - 70 % 07/19/2019 5:16 AM CDT [facility] LYMPHOCYTES % 25.0 18 - 42 % 07/19/2019 5:16 AM CDT [facility] MONOCYTES % 9.8 2.0 - 11.0 % 07/19/2019 5:16 AM CDT [facility] EOSINOPHILS 7.4(H) 1.0 - 3.0 % 07/19/2019 5:16 AM CDT [facility] BASOPHILS 1.0 0.0 - 1.0 % 07/19/2019 5:16 AM CDT [facility] ABS. NEUTROPHILS TOTAL 3.32 1.69 - 7.81 x10'3/uL 07/19/2019 5:16 AM CDT [facility] 07/19/2019 4:40 AM CDT Donovan Oleary APRN LABORATORY Final Re sult [facility] [address] [place] [address], * MAGNESIUM (07/19/2019 4:40 AM CDT) MAGNESIUM 2.0 1.8 - 2.4 MG/DL 07/19/2019 6:01 AM CDT [facility] 07/19/2019 4:40 AM CDT Marlon Kenny MD LABORATORY Final Result [facility] [address] [place] [address], * (ABNORMAL) POCT glucose (07/18/2019 7:19 PM CDT) GLUCOSE POC 232(H) 70 - 99 MG/DL 07/18/2019 7:27 PM CDT [facility] ORDERS INTERFACE 07/18/2019 7:19 PM CDT us Donovan Oleary LEAD TELLER POCT ORDERABLES - DEVICE Final Result Performing Organization Address [facility] Co de Phone Number [facility] ORDERS INTERFACE US * (ABNORMAL) POCT glucose (07/18/2019 4:38 PM CDT) GLUCOSE POC 179(H) 70 - 99 MG/DL 07/18/2019 4:41 PM CDT [facility] ORDERS INTERFACE 07/18/2019 4:38 PM CDT Donovan Oleary LEAD TELLER POCT ORDERABLES - DEVICE Final Result Performing Organization Address [facility] de Phone Number [facility] ORDERS INTERFACE US * (ABNORMAL) POCT glucose (07/18/2019 11:35 AM CDT) GLUCOSE POC 194(H) 70 - 99 MG/DL 07/18/2019 11:37 AM CDT [facility] ORDERS INTERFACE 07/18/2019 11:3 5 AM CDT Donovan Oleary APRN POCT ORDERABLES - DEVICE Final Result Performing Organization Address [facility] de Phone Number [facility] ORDERS INTERFACE US * (ABNORMAL) POCT glucose (07/18/2019 7:38 AM CDT) GLUCOSE POC 131(H) 70 - 99 MG/DL 07/18/2019 7:43 AM CDT [facility] ORDERS INTERFACE 07/18/2019 7:38 AM CDT Donovan Oleary LEAD TELLER POCT ORDERABLES - DEVICE Final Result Performing Organization Address [facility] Co de Phone Number [facility] ORDERS INTERFACE US * (ABNORMAL) COMPREHENSIVE METABOLIC PANEL (07/18/2019 5:05 AM CDT) GLUCOSE 183(H) 70 - 99 MG/DL 07/18/2019 5:58 AM CDT [facility] BUN 16 7 - 18 MG/DL 07/18/2019 5:58 AM CDT [facility] CREATININE S/P/B 0.96 0.55 - 1.02 MG/DL 07/18/2019 5:58 AM CDT [facility] SODIUM S/P/B 139 136 - 145 MMOL/L 07/18/2019 5:58 AM T [facility] POTASSIUM S/P/B 4.0 3.5 - 5.1 MMOL/L 07/18/2019 5:58 AM CDT [facility] CHLORIDE S/P/B 102 100 - 108 MMOL/L 07/18/2019 5:58 AM T [facility] CO2 32.7(H) 21 - 32 MMOL/L 07/18/2019 5:58 AM T [facility] CALCIUM S/P/B 8.1(L) 8.5 - 10.1 MG/DL 07/18/2019 5:58 AM T [facility] BILIRUBIN TOTAL S/P/B 0.4 0.2 - 1.2 MG/DL 07/18/2019 5:58 AM T [facility] Comment: THIS ASSAY IS NOT RECOMMENDED FOR PATIENTS UNDERGOING TREATMENT WITH ELTROMBOPAG DUE TO THE POTENTIAL FOR FALSELY ELEVATED RESULTS. TOTAL PROTEIN S/P/B 6.4 6.4 - 8.2 G/DL 07/18/2019 5:58 AM CDT [facility] ALBUMIN S/P/B 1.9(L) 3.4 - 5.0 G/DL 07/18/2019 5:58 AM T [facility] AST 38(H) 15 - 37 U/L 07/18/2019 5:58 AM CDT [facility] ALT 30 14 - 55 U/L 07/18/2019 5:58 AM CDT [facility] ALKALINE PHOSPHATASE S/P/B 36(L) 50 - 136 U/L 07/18/2019 5:58 AM CDT [facility] ANION GAP 4.3(L) 5 - 15 MMOL/L 07/18/2019 5:58 AM CDT [facility] BUN CREATININE RATIO 16.7 6 - 26 07/18/2019 5:58 AM CDT [facility] A/G RATIO 0.4(L) 1.0 - 2.0 RATIO 07/18/2019 5:58 AM T [facility] EGFR NON-AFR. AMER. 62(L) >90 ML/MIN/1.7 3 M2 07/18/2019 5:58 AM T [facility] EGFR AFR. AMER. 72(L) >90 ML/MIN/1.7 3 M2 07/18/2019 5:58 AM T [facility] Comment: NOTE: eGFR is not calculated for patients <18 years of age. This is an estimated GFR (CKD EPI) and should not be used for calculating drug doses. 07/18/2019 5:05 AM CDT Donovan Oleary APRN LABORATORY Final Re sult [facility] [address] [place] [address], [place] [phone] * (ABNORMAL) CBC W/DIFF AUTOMATED (07/18/2019 5:05 AM CDT) WBC 5.6 4.8 - 10.8 x10'3/uL 07/18/2019 5:41 AM CDT [facility] RBC 3.12(L) 4.10 - 5.10 x10'6/uL 07/18/2019 5:41 AM CDT [facility] HGB 9.4(L) 12.0 - 16.0 G/DL 07/18/2019 5:41 AM T [facility] HCT 29.3(L) 36 - 46 % 07/18/2019 5:41 AM CDT [facility] MCV 93.9 80 - 100 FL 07/18/2019 5:41 AM CDT [facility] MCH 30.1 26.0 - 34.0 PG 07/18/2019 5:41 AM T [facility] MCHC 32.1 31.0 - 37.0 G/DL 07/18/2019 5:41 AM T [facility] RDW 16.4(H) 11.5 - 14.5 % 07/18/2019 5:41 AM T [facility] PLT 288 150 - 350 x10'3/uL 07/18/2019 5:41 AM [facility] CBC COMMENT AUTOMATED RBC MORPHOLOGY AND PLATELET EVALUATION NORMAL 07/18/2019 5:41 AM T [facility] NEUTROPHILS % 60.9 50 - 70 % 07/18/2019 5:41 AM T [facility] LYMPHOCYTES % 23.2 18 - 42 % 07/18/2019 5:41 AM T [facility] MONOCYTES % 7.6 2.0 - 11.0 % 07/18/2019 5:41 AM T [facility] EOSINOPHILS 7.2(H) 1.0 - 3.0 % 07/18/2019 5:41 AM T [facility] BASOPHILS 1.1(H) 0.0 - 1.0 % 07/18/2019 5:41 AM T [facility] ABS. NEUTROPHILS TOTAL 3.39 1.69 - 7.81 x10'3/uL 07/18/2019 5:41 AM CDT [facility] 07/18/2019 5:05 AM CDT Donovan Oleary APRN LABORATORY Final Re sult Performing Organization Address City/[facility]/ZIP Co de Phone Number [facility] [address] [place] [address], * MAGNESIUM (07/18/2019 5:05 AM CDT) MAGNESIUM 2.0 1.8 - 2.4 MG/DL 07/18/2019 5:58 AM CDT [facility] 07/18/2019 5:05 AM CDT Marlon Kenny MD LABORATORY Final Result Performing Organization Address [facility] Co de Phone Number [facility] [address] [place] [address], * (ABNORMAL) CK (CPK) (07/18/2019 5:05 AM CDT) CPK 302(H) 26 - 192 U/L 07/18/2019 5:58 AM CDT [facility] 07/18/2019 5:05 AM CDT Marlon Kenny MD LABORATORY Final Result Performing Organization Address City/[facility]/ZIP Co de Phone Number [facility] [address] [place] [address], * (ABNORMAL) POCT glucose (07/17/2019 7:50 PM CDT) GLUCOSE POC 166(H) 70 - 99 MG/DL 07/17/2019 8:01 PM CDT [facility] ORDERS INTERFACE 07/17/2019 7:50 PM CDT Donoavn Oleary LEAD TELLER POCT ORDERABLES - DEVICE Final Result Performing Organization Address [facility] Phone Number [facility] ORDERS INTERFACE US * (ABNORMAL) POCT glucose (07/17/2019 5:33 PM CDT) GLUCOSE POC 141(H) 70 - 99 MG/DL 07/17/2019 5:34 PM CDT [facility] ORDERS INTERFACE 07/17/2019 5:33 PM CDT Donovan Oleary LEAD TELLER POCT ORDERABLES - DEVICE Final Result Performing Organization Address [facility] Phone Number [facility] ORDERS INTERFACE US * (ABNORMAL) POCT glucose (07/17/2019 2:19 PM CDT) GLUCOSE POC 101(H) 70 - 99 MG/DL 07/17/2019 2:22 PM CDT [facility] ORDERS INTERFACE 07/17/2019 2:19 PM CDT Donovan Oleary APRN POCT ORDERABLES - DEVICE Final Result Performing Organization Address [facility] Phone Number [facility] ORDERS INTERFACE US * (ABNORMAL) POCT glucose (07/17/2019 1:11 PM CDT) GLUCOSE POC 69(L) 70 - 99 MG/DL 07/17/2019 1:12 PM CDT [facility] ORDERS INTERFACE 07/17/2019 1:11 PM CDT Donovan Oleary LEAD TELLER POCT ORDERABLES - DEVICE Final Result Performing Organization Address [facility] Phone Number [facility] ORDERS INTERFACE US * (ABNORMAL) CULTURE, ANAEROBIC (07/17/2019 11:00 AM CDT) SPEC DESCRIPTION BUTTOCK,LEFT 07/17/2019 5:18 PM CDT [facility] SPECIAL REQUESTS NO SPECIAL REQUEST 07/17/2019 5:18 PM CDT [facility] GRAM STAIN RESULT MANY WHITE BLOOD CELLS SEEN 07/18/2019 12:15 PM CDT [facility] GRAM STAIN RESULT MANY RED BLOOD CELLS SEEN 07/18/2019 12:15 PM CDT [facility] GRAM STAIN RESULT MANY GRAM NEGATIVE RODS 07/18/2019 12:15 PM CDT [facility] GRAM STAIN RESULT FEW GRAM POSITIVE COCCI 07/18/2019 12:15 PM CDT [facility] CULTURE RESULT HEAVY GROWTH OF ESCHERICHIA COLI SUSCEPTIBILITY ON PREVIOUS SPECIMEN [id number] (A) 07/22/2019 9:52 AM CDT [facility] CULTURE RESULT LIGHT GROWTH OF VANCOMYCIN RESISTANT ENTEROCOCCUS FAECALIS SUSCEPTIBILITY ON PREVIOUS SPECIMEN [id number] (A) 07/22/2019 9:52 AM CDT [facility] CULTURE RESULT LIGHT GROWTH OF BACTEROIDES THETAIOTAOMICRON BETA LACTAMASE POSITIVE SUSCEPTIBILTY NOT ROUTINELY PERFORMED. SAVING ISOLATE FOR 5 DAYS. CONTACT MICROBIOLOGY DEPARTMENT IF FURTHER WORKUP IS INDICATED. (A) 07/22/2019 9:52 AM CDT [facility] CULTURE RESULT NOTE: ANAEROBIC CULTURES ARE ROUTINELY SCREENED FOR BOTH AEROBIC AND ANAEROBIC ORGANISMS. 07/22/2019 9:52 AM CDT [facility] STRUCTURE OF LEFT BUTTOCK / Unknown 07/17/2019 11:00 AM CDT 07/17/2019 6:58 PM CDT us Donovan Oleary APRN MICROBIOLOGY - GENERAL O RDERABLES Final Result [facility] [address] [place] [address], [facility] [address] [place] [address], [place] [phone] * (ABNORMAL) CULTURE, ANAEROBIC (07/17/2019 11:00 AM CDT) SPEC DESCRIPTION BUTTOCK,LEFT 07/17/2019 5:18 PM CDT [facility] SPECIAL REQUESTS NO SPECIAL REQUEST 07/17/2019 5:18 PM CDT [facility] GRAM STAIN RESULT RARE WHITE BLOOD CELLS SEEN 07/18/2019 12:09 PM CDT [facility] GRAM STAIN RESULT RARE RED BLOOD CELLS SEEN 07/18/2019 12:09 PM CDT [facility] GRAM STAIN RESULT MANY GRAM NEGATIVE RODS 07/18/2019 12:09 PM T [facility] GRAM STAIN RESULT RARE GRAM POSITIVE COCCI 07/18/2019 12:09 PM CDT [facility] CULTURE RESULT HEAVY GROWTH OF ESCHERICHIA COLI (A) 07/22/2019 9:51 AM T [facility] CULTURE RESULT LIGHT GROWTH OF VANCOMYCIN RESISTANT ENTEROCOCCUS FAECALIS (A) 07/22/2019 9:51 AM T [facility] CULTURE RESULT MODERATE GROWTH OF BACTEROIDES THETAIOTAOMICRON BETA LACTAMASE POSITIVE SUSCEPTIBILTY NOT ROUTINELY PERFORMED. SAVING ISOLATE FOR 5 DAYS. CONTACT MICROBIOLOGY DEPARTMENT IF FURTHER WORKUP IS INDICATED. (A) 07/22/2019 9:51 AM T [facility] CULTURE RESULT NOTE: ANAEROBIC CULTURES ARE ROUTINELY SCREENED FOR BOTH AEROBIC AND ANAEROBIC ORGANISMS. 07/22/2019 9:51 AM T [facility] STRUCTURE OF LEFT BUTTOCK / Unknown 07/17/2019 11:00 AM CDT 07/17/2019 6:58 PM CDT Narrative Organism Antibiotic Method Susceptibility Escherichia coli AMPICILLIN MICHAEL (MICI) >=32: Resistant Escherichia coli AMPICILLIN/SULBACTAM MICHAEL (MICI) >=32: Resistant Escherichia coli CEFTRIAXONE MICHAEL (MICI) <=1: Sensitive Escherichia coli CEFTAZIDIME MICHAEL (MICI) 4: Sensitive Escherichia coli CEFAZOLIN MICHAEL (MICI) >=64: Resistant Escherichia coli ESBL MICHAEL (MICI) NEG: Sensitive Escherichia coli GENTAMICIN MICHAEL (MICI) <=1: Sensitive Escherichia coli LEVOFLOXACIN MICHAEL (MICI) <=0.12: Sensitive Escherichia coli PIPRACIL/TAZO MICHAEL (MICI) 64: Intermediate Comment:INTERMEDIATE Escherichia coli TRIMETH-SULFAMETH. MICHAEL (MICI) <=20: Sensitive Vancomycin resistant enteroc occus faecalis AMPICILLIN MICHAEL (MICI) <=2: Sensitive Vancomycin resistant enteroc occus faecalis GENT. SYNERGY SCREEN MICHAEL (MICI) Resistant Vancomycin resistant enteroc occus faecalis LINEZOLID MICHAEL (MICI) 1: Sensitive Vancomycin resistant enteroc occus faecalis PENICILLIN G MICHAEL (MICI) 8: Sensitive Vancomycin resistant enteroc occus faecalis VANCOMYCIN MICHAEL (MICI) >=32: Resistant Donovan Oleary APRN MICROBIOLOGY - GENERAL O RDERABLES Final Result [facility] [address] [place] [address], [place] [phone] [facility] [address] [place] [address], [place] [phone] * POCT glucose (07/17/2019 7:17 AM CDT) GLUCOSE POC 73 70 - 99 MG/DL 07/17/2019 7:24 AM CDT [facility] ORDERS INTERFACE 07/17/2019 7:17 AM CDT Donovan Oleary APRN POCT ORDERABLES - DEVICE Final Result [facility] ORDERS INTERFACE US * MAGNESIUM (07/17/2019 4:00 AM CDT) MAGNESIUM 2.2 1.8 - 2.4 MG/DL 07/17/2019 8:12 AM CDT [facility] 07/17/2019 4:00 AM CDT us Marlon Kenny MD LABORATORY Final Result [facility] [address] [place] [address], [place] [phone] * TYPE & SCREEN (07/17/2019 4:00 AM CDT) UNITS ORDERED 1 07/17/2019 6:11 AM CDT [facility] ABO/RH O POSITIVE 07/17/2019 6:11 AM CDT [facility] ANTIBODY SCREEN NEGATIVE 0 6:11 AM CDT [facility] SAMPLE EXPIRATION 07/20/2019,2359 07/17/2019 6:11 AM CDT [facility] BLOOD UNIT NUMBER [id number] 07/17/2019 8:19 AM CDT [facility] PRODUCT: PC LEUKOPOOR 07/17/2019 8:19 AM CDT [facility] UNIT DIVISION 00 07/17/2019 8:19 AM CDT [facility] BLOOD UNIT STATUS TRANSFUSED,FINAL 07/18/2019 4:19 PM CDT [facility] ISSUE DATE/TIME [id number] 4:19 PM CDT [facility] PRODUCT CODE [id number] 07/18/2019 4:19 PM CDT [facility] ABO/RH Unit O POS 07/18/2019 4:19 PM CDT [facility] ABO/RH UNIT ISBT CODE 5100 07/18/2019 4:19 PM CDT [facility] BLOOD UNIT EXPIRATION DATE [id number] 07/18/2019 4:19 PM CDT [facility] TRANSFUSION STATUS OK TO TRANSFUSE 07/17/2019 8:19 AM CDT [facility] CROSSMATCH COMPATIBLE 07/17/2019 8:19 AM CDT [facility] 07/17/2019 4:00 AM CDT us Marlon Kenny MD BLOOD BANK TEST ORDERABLES Final Result [facility] [address] [place] [address], [place] [phone] * (ABNORMAL) CBC W/DIFF AUTOMATED (07/17/2019 4:00 AM CDT) WBC 4.9 4.8 - 10.8 x10'3/uL 07/17/2019 4:46 AM CDT [facility] RBC 2.66(L) 4.10 - 5.10 x10'6/uL 07/17/2019 4:46 AM CDT [facility] HGB 7.7(L) 12.0 - 16.0 G/DL 07/17/2019 4:46 AM T [facility] HCT 24.7(L) 36 - 46 % 07/17/2019 4:46 AM CDT [facility] MCV 92.9 80 - 100 FL 07/17/2019 4:46 AM CDT [facility] MCH 28.9 26.0 - 34.0 PG 07/17/2019 4:46 AM CDT [facility] MCHC 31.2 31.0 - 37.0 G/DL 07/17/2019 4:46 AM CDT [facility] RDW 16.8(H) 11.5 - 14.5 % 07/17/2019 4:46 AM CDT [facility] PLT 309 150 - 350 x10'3/uL 07/17/2019 4:46 AM CDT [facility] CBC COMMENT AUTOMATED RBC MORPHOLOGY AND PLATELET EVALUATION NORMAL 07/17/2019 4:46 AM CDT [facility] NEUTROPHILS % 56.8 50 - 70 % 07/17/2019 4:46 AM CDT [facility] LYMPHOCYTES % 26.8 18 - 42 % 07/17/2019 4:46 AM CDT [facility] MONOCYTES % 8.4 2.0 - 11.0 % 07/17/2019 4:46 AM CDT [facility] EOSINOPHILS 7.0(H) 1.0 - 3.0 % 07/17/2019 4:46 AM CDT [facility] BASOPHILS 1.0 0.0 - 1.0 % 07/17/2019 4:46 AM CDT [facility] ABS. NEUTROPHILS TOTAL 2.78 1.69 - 7.81 x10'3/uL 07/17/2019 4:46 AM T [facility] 07/17/2019 4:00 AM CDT Marlon Kenny MD LABORATORY Final Result [facility] [address] [place] [address], * (ABNORMAL) BASIC METABOLIC PANEL (07/17/2019 4:00 AM CDT) GLUCOSE 103(H) 70 - 99 MG/DL 07/17/2019 8:12 AM CDT [facility] BUN 14 7 - 18 MG/DL 07/17/2019 8:12 AM CDT [facility] CREATININE S/P/B 0.88 0.55 - 1.02 MG/DL 07/17/2019 8:12 AM CDT [facility] SODIUM S/P/B 141 136 - 145 MMOL/L 07/17/2019 8:12 AM CDT [facility] POTASSIUM S/P/B 4.0 3.5 - 5.1 MMOL/L 07/17/2019 8:12 AM CDT [facility] CHLORIDE S/P/B 103 100 - 108 MMOL/L 07/17/2019 8:12 AM CDT [facility] CO2 31.7 21 - 32 MMOL/L 07/17/2019 8:12 AM T [facility] CALCIUM S/P/B 8.2(L) 8.5 - 10.1 MG/DL 07/17/2019 8:12 AM T [facility] ANION GAP 6.3 5 - 15 MMOL/L 07/17/2019 8:12 AM T [facility] BUN CREATININE RATIO 15.9 6 - 26 07/17/2019 8:12 AM T [facility] EGFR NON-AFR. AMER. 69(L) >90 ML/MIN/1.7 3 M2 07/17/2019 8:12 AM T [facility] EGFR AFR. AMER. 80(L) >90 ML/MIN/1.7 3 M2 07/17/2019 8:12 AM T [facility] Comment: NOTE: eGFR is not calculated for patients <18 years of age. This is an estimated GFR (CKD EPI) and should not be used for calculating drug doses. 07/17/2019 4:00 AM CDT Marlon Kenny MD LABORATORY Final Result [facility] [address] [place] [address], * (ABNORMAL) POCT glucose (07/16/2019 8:13 PM CDT) GLUCOSE POC 182(H) 70 - 99 MG/DL 07/16/2019 8:26 PM CDT [facility] ORDERS INTERFACE 07/16/2019 8:13 PM CDT us Marlon Kenny MD POCT ORDERABLES - DEVICE Final R esult [facility] ORDERS INTERFACE US documented in this encounter Visit Diagnoses Diagnosis Infected decubitus ulcer- Primary Pressure ulcer, unspecified site Wound, open, buttock Open wound of buttock, without mention of complication Pressure injury, stage 3, with infection (CMS/HCC HHS/HCC) Ulcer of lower limb, left, limited to breakdown of skin (CMS/HCC HHS/HCC) documented in this encounter Administered Medications Inactive Administered Medications - up to 3 most recent administrations Medication Order MAR Action Action Date Dose Rate Site acetaminophen (TYLENOL) tablet 650 mg 650 mg, Oral, Every 4 hours PRN, Mild pain (Scale 1 - 3), Starting on Mon07/16/19 at 1715, Until Mon07/19/19 at 1523, Maximum dose of acetaminophen is 4000 mg from all sources in 24 hours., Discharge Readmit Given 07/17/2019 9:30 PM CDT 650 mg aspirin tablet 325 mg 325 mg, Oral, Daily, First dose (after last modification) on Mon07/17/19 at 0900, Until Discontinued, Discharge Readmit Given 07/19/2019 7:25 AM CDT 325 mg Given 07/18/2019 8:08 AM CDT 325 mg atorvastatin (LIPITOR) tablet 40 mg 40 mg, Oral, Daily, First dose (after last modification) on Mon07/17/19 at 0900, Until Discontinued, Discharge Readmit Given 07/19/2019 7:25 AM CDT 40 mg Given 07/18/2019 8:08 AM CDT 40 mg ceFAZolin (ANCEF) 2 g in sterile water 20 mL IV 2 g, Intravenous, at 240 mL/hr, electrologist to O.R., 1 dose, First dose on Mon07/17/19 at 0915 Given 07/17/2019 10:08 AM CDT 2 g 240 mL/hr cefTRIAXone (ROCEPHIN) 1 g in sterile water 10 mL IV 1 g, Intravenous, at 120 mL/hr, Every 24 hours, First dose on Mon07/18/19 at 1330, Until Discontinued Given 07/18/2019 1:48 PM CDT 1 g 120 mL /hr chlorthalidone (HYGROTEN) tablet 25 mg 25 mg, Oral, Daily, First dose (after last modification) on Mon07/17/19 at 0900, Until Discontinued, Discharge Readmit Given 07/19/2019 7:25 AM CDT 25 mg Given 07/18/2019 8:08 AM CDT 25 mg collagenase (SANTYL) ointment Topical, Daily, First dose (after last modification) on Mon07/17/19 at 0900, Until Discontinued, Discharge Readmit Given 07/18/2019 8:08 AM CDT DAPTOmycin (CUBICIN) 625 mg in sodium chloride 0.9 % 100 mL IVPB 625 mg (rounded from 624 mg = 10 mg/kg ? 62.4 kg Adjusted weight), Intravenous, Administer over 30 Minutes, Every 24 hours, 1 dose, First dose (after last modification) on Mon07/17/19 at 1500, Through 07/16, Discharge Readmit New Bag 07/17/2019 3:14 PM CDT 625 mg 200 mL/hr fluconazole (DIFLUCAN) IVPB 400 mg 400 mg, Intravenous, at 200 mL/hr, Every 24 hours, First dose (after last modification) on Mon07/17/19 at 1200, Until Discontinued, Dose is 2 bags of 200 mg each= 400 mg total, Discharge Readmit New Bag 07/19/2019 10:43 AM CDT 400 mg 200 m L/hr New Bag 07/18/2019 12:35 PM CDT 400 mg 200 mL/hr New Bag 07/17/2019 1:00 PM CDT 400 mg 200 mL/hr gabapentin (NEURONTIN) capsule 300 mg 300 mg, Oral, 3 times daily, First dose (after last modification) on Mon07/16/19 at 2100, Until Discontinued, Discharge Readmit Given 07/19/2019 7:25 AM C DT 300 mg Given 07/18/2019 9:23 PM CDT 300 mg Given 07/18/2019 3:59 PM CDT 300 mg heparin (porcine) injection 5,000 Units 5,000 Units, Subcutaneous, Every 12 hours scheduled (2 times per day), First dose (after last modification) on Mon07/16/19 at 2100, Until Discontinued, Discharge Readmit Given 07/19/2019 7:26 AM CDT 5,000 Units Right Lower Abdomen Given 07/18/2019 9:23 PM CDT 5,000 Units L eft Lower Abdomen Given 07/18/2019 8:08 AM CDT 5,000 Units L eft Lower Abdomen insulin glargine (LANTUS) injection 15 Units 15 Units, Subcutaneous, Nightly at bedtime, First dose (after last modification) on Mon07/16/19 at 2100, Until Discontinued, Discharge Readmit Given 07/18/2019 9:23 PM CDT 15 Units Left Lower Abdomen Given 07/17/2019 9:31 PM CDT 15 Units Le ft Arm Given 07/16/2019 9:36 PM CDT 15 Units Le ft Arm insulin lispro (HUMALOG) injection 0-16 Units 0-16 Units, Subcutaneous, 3 times daily before meals, First dose (after last modification) on Mon07/17/19 at 0700, Until Discontinued, Blood Glucose (USUAL Dosing): [Less than 70:? Initiate Hypoglycemia Standing Orders] [71-140: ? 0 units] [141-180:? 4 units] [181-220:? 6 units] [221-260:? 8 units] [261-300:? 10 units] [301-350:? 12 units] [351-400:? 14 units] [Greater than 400:? 16 units and Call Physician], Discharge Readmit Given 07/18/2019 4:43 PM CDT 4 Units Left Arm Given 07/18/2019 11:39 AM CDT 6 Units R ight Arm Given 07/17/2019 5:44 PM CDT 4 Units Le ft Lower Abdomen insulin lispro (HUMALOG) injection 0-8 Units 0-8 Units, Subcutaneous, Nightly at bedtime, First dose (after last modification) on Mon07/16/19 at 2100, Until Discontinued, Blood Glucose (USUAL Dosing): [Less than 70:? Initiate Hypoglycemia Standing Orders] [71-180:? 0 units] [181-220:? 3 units] [221-260:? 4 units] [261-300:? 5 units] [301-350:? 6 units] [351-400:? 7 units] [Greater than 400:? 8 units and Call Physician], Discharge Readmit Given 07/18/2019 9:23 PM CDT 4 Units Left Lower Abdomen Given 07/16/2019 9:37 PM CDT 3 Units Le ft Arm lactated ringers infusion at 10 mL/hr, Intravenous, Continuous, Starting on Mon07/17/19 at 1000, Until Mon07/19/19 at 1523, PACU New Bag 07/17/2019 10:08 AM CDT 10 mL/hr levothyroxine (SYNTHROID) tablet 50 mcg 50 mcg, Oral, Daily (levothyroxine), First dose (after last modification) on Mon07/17/19 at 0600, Until Discontinued, Avoid iron, calcium, and antacids within 4 hours of administration., Discharge Readmit Given 07/19/2019 5:06 AM CDT 50 mcg Given 07/18/2019 5:01 AM CDT 50 mcg pantoprazole EC (PROTONIX) tablet 40 mg 40 mg, Oral, Daily, First dose (after last modification) on Mon07/17/19 at 0900, Until Discontinued, Do not break, chew, or crush., Discharge Readmit Given 07/19/2019 7:25 AM CDT 40 mg Given 07/18/2019 8:08 AM CDT 40 mg documented in this encounter Active and Recently Administered Medications Times are shown in CDT. Scheduled Medication Order 07/17/2019 07/18/2019 07/19/2019 aspirin tablet 325 mg 325 mg, Oral, Daily, First dose (after last modification) on Mon07/17/19 at 0900, Until Discontinued, Discharge Readmit 0900 (Hold - Provider: Jodi Asif RN - Reason: Other - Comment: surgery)1024 (MAY Hold - Provider: User [employer] - Reason: Unreviewed Transfer Orders)1227 (MAR Unhold - Provider: User [employer]) 0808 (Given - Provider: Yoana Ledbetter RN) 0725 (Given - Provider: Mary Beth Foreman RN) atorvastatin (LIPITOR) tablet 40 mg 40 mg, Oral, Daily, First dose (after last modification) on Mon07/17/19 at 0900, Until Discontinued, Discharge Readmit 0806 (Not Given - Provider: Yoana Ledbetter RN - Reason: NPO - Comment: per dr bishop)1024 (MAY Hold - Provider: User Epic - Reason: Unreviewed Transfer Orders)1227 (MAY Unhold - Provider: User Epic) 0808 (Given - Provider: Yoana Ledbetter RN) 0725 (Given - Provider: Mary Beth Foreman, SPENCER) ceFAZolin (ANCEF) 2 g in sterile water 20 mL IV (COMPLETED) 2 g, Intravenous, at 240 mL/hr, electrologist to O.R., 1 dose, First dose on Mon07/17/19 at 0915 1008 (Given - Provider: Kelly Sr RN) cefTRIAXone (ROCEPHIN) 1 g in sterile water 10 mL IV 1 g, Intravenous, at 120 mL/hr, Every 24 hours, First dose on Mon07/18/19 at 1330, Until Discontinued 1348 (Given - Provider: Yoana Ledbetter RN) 1330 (Canceled Entry - Provider: Automatic Discharge Provider - Comment: Automatically canceled at discontinue of medication order) chlorthalidone (HYGROTEN) tablet 25 mg 25 mg, Oral, Daily, First dose (after last modification) on Mon07/17/19 at 0900, Until Discontinued, Discharge Readmit 0807 (Not Given - Provider: Yoana Ledbetter RN - Reason: NPO - Comment: per dr bishop)1024 (MAY Hold - Provider: User Epic - Reason: Unreviewed Transfer Orders)1227 (MAY Unhold - Provider: User Epic) 0808 (Given - Provider: Yoana Ledbetter RN) 0725 (Given - Provider: Mary Beth Foreman RN) collagenase (SANTYL) ointment Topical, Daily, First dose (after last modification) on Mon07/17/19 at 0900, Until Discontinued, Discharge Readmit 0807 (Not Given - Provider: Yoana Ledbetter RN - Reason: NPO - Comment: per dr bishop)1024 (MAY Hold - Provider: User Epic - Reason: Unreviewed Transfer Orders)1227 (MAY Unhold - Provider: User Epic) 0808 (Given - Provider: Yoana Ledbetter RN) 0657 (Not Given - Provider: Mary Beth Foreman, SPENCER - Reason: Other - Comment: wound vac placed on buttock) DAPTOmycin (CUBICIN) 625 mg in sodium chloride 0.9 % 100 mL IVPB (COMPLETED) 625 mg (rounded from 624 mg = 10 mg/kg ? 62.4 kg Adjusted weight), Intravenous, Administer over 30 Minutes, Every 24 hours, 1 dose, First dose (after last modification) on Mon07/17/19 at 1500, Through 07/16, Discharge Readmit 1024 (MAY Hold - Provider: User Epic - Reason: Unreviewed Transfer Orders)1227 (MAY Unhold - Provider: User Epic)1514 (New Bag - Provider: Yoana Ledbetter RN)1615 (Infusion Stop Time - Provider: Yoana Ledbetter RN) fluconazole (DIFLUCAN) IVPB 400 mg 400 mg, Intravenous, at 200 mL/hr, Every 24 hours, First dose (after last modification) on Mon07/17/19 at 1200, Until Discontinued, Dose is 2 bags of 200 mg each= 400 mg total, Discharge Readmit 1024 (MAY Hold - Provider: User Epic - Reason: Unreviewed Transfer Orders)1200 (Automatically Held - Provider: User Epic)1227 (MAY Unhold - Provider: Yoana Ledbetter RN)1300 (New Bag - Provider: Yoana Ledbetter RN)1512 (Infusion Stop Time - Provider: Yoana Ledbetter RN) 1235 (New Bag - Provider: Yoana Ledbetter RN)1348 (Infusion Stop Time - Provider: Yoana Ledbetter RN) 1043 (New Bag - Provider: Mary Beth Foreman, SPENCER)1157 (Infusion Stop Time - Provider: Mary Beth Foreman, SPENCER) gabapentin (NEURONTIN) capsule 300 mg 300 mg, Oral, 3 times daily, First dose (after last modification) on Mon07/16/19 at 2100, Until Discontinued, Discharge Readmit 0807 (Not Given - Provider: Yoana Ledbetter RN - Reason: NPO - Comment: per dr bishop)1024 (MAY Hold - Provider: User Epic - Reason: Unreviewed Transfer Orders)1227 (MAR Unhold - Provider: User Epic)1553 (Given - Provider: Yoana Ledbetter, SPENCER)2129 (Given - Provider: Eloisa Chaidez RN) 0807 (Given - Provider: Yoana Ledbetter RN)155 (Given - Provider: Yoana Ledbetter RN)2122 (Given - Provider: Jaylin Veliz, SPENCER) 0725 (Given - Provider: Mary Beth Foreman, SPENCER) heparin (porcine) injection 5,000 Units 5,000 Units, Subcutaneous, Every 12 hours scheduled (2 times per day), First dose (after last modification) on Mon07/16/19 at 2100, Until Discontinued, Discharge Readmit 0900 (Hold - Provider: Jodi Asif RN - Reason: Other - Comment: surgery)1024 ([facility] Hold - Provider: User Epic - Reason: Unreviewed Transfer Orders)1227 ([facility] Unhold - Provider: User Epic)2128 (Given - Provider: Eloisa Chaidez RN) 0808 (Given - Provider: Yoana Ledbetter RN)2122 (Given - Provider: Jaylin Veliz RN) 0726 (Given - Provider: Mary Beth Foreman, SPENCER) insulin glargine (LANTUS) injection 15 Units 15 Units, Subcutaneous, Nightly at bedtime, First dose (after last modification) on Mon07/16/19 at 2100, Until Discontinued, Discharge Readmit 1024 ([facility] Hold - Provider: User Epic - Reason: Unreviewed Transfer Orders)1227 ([facility] Unhold - Provider: User Epic)2130 (Given - Provider: Eloisa Chaidez RN) 2122 (Given - Provider: Jaylin Veliz RN) insulin lispro (HUMALOG) injection 0-16 Units(Linked Group 1) 0-16 Units, Subcutaneous, 3 times daily before meals, First dose (after last modification) on Mon07/17/19 at 0700, Until Discontinued, Blood Glucose (USUAL Dosing): [Less than 70:? Initiate Hypoglycemia Standing Orders] [71-140: ? 0 units] [141-180:? 4 units] [181-220:? 6 units] [221-260:? 8 units] [261-300:? 10 units] [301-350:? 12 units] [351-400:? 14 units] [Greater than 400:? 16 units and Call Physician], Discharge Readmit 0726 (Not Given - Provider: Yoana Ledbetter RN - Reason: Order parameters not met)1024 (MAR Hold - Provider: User Epic - Reason: Unreviewed Transfer Orders)1100 (Automatically Held - Provider: User Epic)1227 (MAR Unhold - Provider: User Epic)1744 (Given - Provider: Yoana Ledbetter RN) 0807 (Not Given - Provider: Yoana Ledbetter RN - Reason: Order parameters not met)1139 (Given - Provider: Yoana Ledbetter RN)1643 (Given - Provider: Yoana Ledbetter RN) 0726 (Not Given - Provider: Mary Beth Foreman RN - Reason: Order parameters not met)1117 (Not Given - Provider: Mary Beth Foreman RN - Reason: Other - Comment: Refused lunch) insulin lispro (HUMALOG) injection 0-8 Units(Linked Group 1) 0-8 Units, Subcutaneous, Nightly at bedtime, First dose (after last modification) on Mon07/16/19 at 2100, Until Discontinued, Blood Glucose (USUAL Dosing): [Less than 70:? Initiate Hypoglycemia Standing Orders] [71-180:? 0 units] [181-220:? 3 units] [221-260:? 4 units] [261-300:? 5 units] [301-350:? 6 units] [351-400:? 7 units] [Greater than 400:? 8 units and Call Physician], Discharge Readmit 1024 (MAR Hold - Provider: User Epic - Reason: Unreviewed Transfer Orders)1227 (MAR Unhold - Provider: User Epic)2014 (Not Given - Provider: Eloisa Chaidez RN - Reason: Order parameters not met) 2122 (Given - Provider: Jaylin Veliz RN) levothyroxine (SYNTHROID) tablet 50 mcg 50 mcg, Oral, Daily (levothyroxine), First dose (after last modification) on Mon07/17/19 at 0600, Until Discontinued, Avoid iron, calcium, and antacids within 4 hours of administration., Discharge Readmit 0534 (Not Given - Provider: Eloisa Chaidez RN - Reason: NPO)1024 (MAY Hold - Provider: User Epic - Reason: Unreviewed Transfer Orders)1227 (MAY Unhold - Provider: User Epic) 0501 (Given - Provider: Eloisa Chaidez RN) 0506 (Given - Provider: Jaylin Veliz RN) pantoprazole EC (PROTONIX) tablet 40 mg 40 mg, Oral, Daily, First dose (after last modification) on Mon07/17/19 at 0900, Until Discontinued, Do not break, chew, or crush., Discharge Readmit 0809 (Not Given - Provider: Yoana Ledbetter RN - Reason: NPO - Comment: per dr bishop)1024 (MAY Hold - Provider: User Epic - Reason: Unreviewed Transfer Orders)1227 (MAY Unhold - Provider: User Epic) 0808 (Given - Provider: Yoana Ledbetter RN) 0725 (Given - Provider: Mary Beth Foreman, SPENCER) Continuous Medication Order 07/17/2019 07/18/2019 07/19/2019 lactated ringers infusion at 10 mL/hr, Intravenous, Continuous, Starting on Mon07/17/19 at 1000, Until Mon07/19/19 at 1523, PACU 1008 (New Bag - Provider: Kelly Sr, SPENCER) sodium chloride 0.9% infusion (CANCELED) at 10 mL/hr, Intravenous, Continuous, Starting on Mon07/17/19 at 0815, Until Mon07/18/19 at 0814, Infuse at TKO rate 1024 (MAY Hold - Provider: User Epic - Reason: Unreviewed Transfer Orders)1104 (New Bag - Provider: Cole [place] CRNA)1105 (Infusion Stop Time - Provider: Cole Ham CRNA)1227 (MAY Unhold - Provider: User Epic)1248 (Not Given - Provider: Yoana Ledbetter RN - Reason: Transfer to a Procedural area) PRN Medication Order 07/17/2019 07/18/2019 07/19/2019 acetaminophen (TYLENOL) tablet 650 mg 650 mg, Oral, Every 4 hours PRN, Mild pain (Scale 1 - 3), Starting on Mon07/16/19 at 1715, Until Mon07/19/19 at 1523, Maximum dose of acetaminophen is 4000 mg from all sources in 24 hours., Discharge Readmit 1024 (MAR Hold - Provider: User Epic - Reason: Unreviewed Transfer Orders)1227 (MAR Unhold - Provider: User Epic)2130 (Given - Provider: Eloisa Chaidez RN) lidocaine-prilocaine (EMLA) cream Topical, As needed, Mild pain (Scale 1 - 3), 30 minutes prior to IV attempts, Starting on Mon07/16/19 at 1715, Until Mon07/19/19 at 1523, Apply 60 minutes prior to procedure, Discharge Readmit 1024 (MAR Hold - Provider: User Epic - Reason: Unreviewed Transfer Orders)1227 (MAR Unhold - Provider: User Epic) loperamide (IMODIUM) capsule 2 mg 2 mg, Oral, 4 times daily PRN, Diarrhea, Starting on Mon07/16/19 at 1715, Until Mon07/19/19 at 1523, Discharge Readmit 1024 (MAR Hold - Provider: User Epic - Reason: Unreviewed Transfer Orders)1227 (MAR Unhold - Provider: User Epic) Linked Groups Order Group 1: insulin lispro (HUMALOG) injection 0-16 UnitsJump to med 0-16 Units, Subcutaneous, 3 times daily before meals, First dose (after last modification) on Mon07/17/19 at 0700, Until Discontinued, Blood Glucose (USUAL Dosing): [Less than 70:? Initiate Hypoglycemia Standing Orders] [71-140: ? 0 units] [141-180:? 4 units] [181-220:? 6 units] [221-260:? 8 units] [261-300:? 10 units] [301-350:? 12 units] [351-400:? 14 units] [Greater than 400:? 16 units and Call Physician], Discharge Readmit And insulin lispro (HUMALOG) injection 0-8 UnitsJump to med 0-8 Units, Subcutaneous, Nightly at bedtime, First dose (after last modification) on Mon07/16/19 at 2100, Until Discontinued, Blood Glucose (USUAL Dosing): [Less than 70:? Initiate Hypoglycemia Standing Orders] [71-180:? 0 units] [181- 220:? 3 units] [221-260:? 4 units] [261-300:? 5 units] [301-350:? 6 units] [351-400:? 7 units] [Greater than 400:? 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
--- OUTSIDE RECORDS SUMMARY | 2024-02-26 21:24 | XMS_ITS | Encounter Summary ---
Author Organization [facility] Address [address] [place] [address]. [place] [address] [place] [address] Care Team Providers Care Business Systems Architect Name Role Phone Damon Swanson MD Unavailable [phone] Don Branham MD Primary Care Provider [phone] Reason for Visit * Auth/Cert Specialty Diagnoses / Procedures Referred By Contac t Referred To Contact Diagnoses Infected decubitus ulcer Procedures INP Referral ID Status Reason Start Date Expiration Date Visits Re quested Visits Authorized [id number] 1 1 Encounter Details Date Type Department Care Team (Late st Contact Info) Description 07/17/2019 10:30 AM CDT - 07/17/2019 12:08 PM CDT Surgery [facility] [address] [place] [address] [place] [id number] [place] [id number] Debridement left gluteal fold, wound VAC placement Surgery Details Date/Time Status Location OR Service Patient Class Case Cl ass Case Type Trauma Case? 07/17/2019 10:30 AM Posted [facility] OR OR 1 General Inpatient No Panel 1 Procedure LRB Anes Op Region Wound Class Comments Debridement left gluteal fol d, wound VAC placement Left General Buttocks Dirty Surgeon Surgeon Role Service Panel Stanislav May MD Primary General 1 documented in this encounter Social History Tobacco Use Types Packs/Day Years [...] Sign Reading Time Taken Comments Blood Pressure 141/78 07/17/2019 12:08 PM CDT Pulse 68 07/17/2019 11:37 AM CDT Temperature 37.1 ??C (98.8 ??F) 07/16/2019 8:23 PM CD T Respiratory Rate 13 07/17/2019 11:37 AM CDT Oxygen Saturation 97% 07/17/2019 11:37 AM CDT Inhaled Oxygen Concentration - - [...] Assessment Author Status Yes 07/16/2019 10:31 PM SHAT Eloisa Chaidez RN Active * Do you have difficulty dressing or bathing? Answer Date of Assessment Author Status Yes 07/16/2019 10:31 PM SHAT Eloisa Chaidez RN [...] or making decisions? No 07/16/2019 10:31 PM Eloisa Lezama RN Active * Because of a physical, mental, or emotional condition, do you have serious difficulty concentrating, remembering, or making decisions? Answer Entry Date Author Status No 07/16/2019 10:31 PM Eloisa Lezama RN Active documented in this encounter Discharge [...] required due to: Wound care and ongoing fci Primary Diagnoses: Infected decubitus ulcers Secondary Diagnosis: [...] 07/04/2019 STAR Report Pat.Name: IRIS PASCUAL Gema.ID: [id number] .Date: 07/04/2019 Exam Time: 12:56:00 PM Study Type:TRANSESOPHAGEAL ECHO (STAR) Height: 62in Weight: 167.65lb BSA: 1.77 m2 Age: 11 1955,64Y Sex: FEMALE BP: 147/68 HR: 67 bpm Sonogrphr: Lacie Victor [facility] Pat. Stat.:Inpatient Reason for Study: Bacteremia [...] 62 Meds: Propofol or Diprivan administered by AnesthesiaStaff, Propofol 130, Lidocain 130 Complications: None Condition: [...] 06/30/2019 Echocardiography Report Pat.Name: IRIS PASCUAL Gema.ID: [id number] .Date: 06/30/2019 Exam Time: 12:31:00 PM Study [...] 31.9 mm Right Ventricle 24.4 mm Major [place] 82.7 mm MMODE TA Tricuspid Annul 12.6 mm Signed 06/30/2019 02:55 Kath Seaman M.D. Discharge Exam: Filed Vitals: 07/18/19 [...] medications were sent to [facility] - [address] [address] ?? levoFLOXacin 500 MG tablet You can get these medications from any pharmacy Bring a paper prescription for each of these medications ?? fluconazole 200 MG tablet ?? lactobacillus Tabs ?? linezolid 600 MG tablet Disposition: Jail Facility Patient Instructions: Activity: activity as tolerated Diet: Diet Carb Controlled Appropriate; 60g/meal Wound Care: as directed Therapy Ordered: Physical Therapy: Evaluate and Treat nursing home: Evaluate and treat Follow-up appointments: Rounding physician [...] Patient may need further wound care at fci facility. Recommend continued following by fci. If needed, patient follow-up with general surgery [...] consume extra protein of your choice (cheese, spanish yogurt, nuts, eggs, meat, peanut butter) at [...] and transition of care will begin at [facility] in [facility]. Full report provided to fpc for continuity of care. Medical record sent. Patient aware of transfer social security specialist contacted patient's daughter Celina and she is aware of patient discharge and transfer to [facility] in [place]. Patient was been a resident there prior. Patient is alert, oriented, and aware of transfer. Patient will transfer by ambulance. Wound vac needs to be meet at fpc. No other services indicated. Case is closed. * June Johnson, RACHEL - 07/19/2019 10:07 AM CDT 07/19/19 0900 [...] of session. Recommendation PT Recommendation PT at Jail Facility PT Equipment Recommended Currently has DME [...] VAC placement Plan: OK to discharge to fpc from surgical standpoint Wound VAC should be [...] Outcome: Progressing Note: Plan to discharge to fci facility for continued care on multiple ulcers. Problem: Pain control/comfort Goal: Promote pain control/comfort Outcome: Progressing Note: No c/o pain, patient resting comfortably, repositioning q2h. Problem: Skin integrity, Impaired-wound Goal: Absence of new skin breakdown Outcome: Progressing Note: No new skin breakdown. Goal: Evidence of wound healing Outcome: Progressing * Genesis Castellanos LCSW - 07/18/2019 2:47 PM CDT criminal justice social worker spoke with Katie at [facility] in [facility]. [facility] is aware of patient's needs. Wound VAC etc..., Patient to go by ambulance. Flatbed Owner Operator will follow. * Yoana Ledbetter RN - 07/18/2019 1:58 PM CDT Problem: Mobility - Impaired Goal: Able to use ambulatory assistive device appropriately Outcome: Progressing Goal: Knowledge of need for increased mobility Outcome: Progressing Problem: Discharge Planning Goal: Knowledge of discharge instructions Outcome: Progressing * Renay Barba, OT - 07/18/2019 12:50 PM CDT [...] with [facility] ADLS Prior Function Level of Union Independent with functional transfers;Independent with ambulation;Needs assistance [...] Recommendation OT Recommendation OT during Hospitalization;OT at Jail Facility OT Equipment Recommended Currently has DME [...] bed mobiltiy. Recommendation PT Recommendation PT at Jail Facility PT Equipment Recommended Currently has DME [...] Bishop MD - 07/18/2019 11:59 AM CDT Karynmk Pascual 07/18/2019 Subjective NO acute issues last [...] BISHOP MD 07/18/2019, 11:59 AM * Natalie Faye, PT - 07/18/2019 11:32 AM CDT 07/18/19 [...] with [facility] ADLS Prior Function Level of Union Independent with functional transfers;Independent with ambulation;Needs assistance [...] overall mobility. Recommendation PT Recommendation PT at Jail Facility PT Equipment Recommended Currently has DME [...] Safety Call light within reach * Candice Bhardwaj RD - 07/18/2019 10:04 AM CDT Dietitian [...] 32.62 kg/m??. BMI Assessment: Grade 1 Obesity [place] Body Weight: 110 pounds Percent [place] Body Weight: 162% Usual Body Weight: 195 pounds in May Percent Usual Body Weight: 91% x 2 months Percent Weight Loss: 9% over the past 2 months Nutrition: Current Diet Order: Diet Carb Controlled Appropriate; 60g/meal Diet Comment: Patient lives at home by herself but most likely will transition to a fpc for further care. Patient appears to have 9% wt loss in past 30 days. Chewing/swallowing problems: No Food allergies/intolerances: none Cultural/Episcopal food preferences: none Current diet appropriate? Yes Current intake sufficient to meet nutritional needs? Patient is consuming 100% of meals; therefore is getting 1874 kcal and 91 grams of protein on average which meets estimated nutritional needs. Pain affecting PO intake? No Estimated Nutrient Needs: Calories: 6199-5192 kcal/day, based on 20 kcal/kg Protein: 91 gm/day, based on 1.25 gm/kg Labs: Alb 1.9, TP 6.4 HGB A1C Date Value Ref Range Status 07/13/2019 11.0 (H) <5.7 % Final Nutrition Risk: High Discharge nutrition plan: Discharge needs assessed. Will provide/update discharge instructions as needed. (See Nutrition Prescription above) CANDICE BHARDWAJ RD 07/18/19, 10:04 AM * Donovan Oleary APRN - 07/18/2019 9:23 AM CDT Hospitalist Daily [...] 07/04/2019 STAR Report Pat.Name: IRIS PASCUAL Gema.ID: [id number] St.Date: 07/04/2019 Exam Time: 12:56:00 PM Study Type:TRANSESOPHAGEAL ECHO (STAR) Height: 62in Weight: 167.65lb BSA: 1.77 m2 Age: 11 1955,64Y Sex: FEMALE BP: 147/68 HR: 67 bpm Sonogrphr: Lacie Victor [facility] Pat. Stat.:Inpatient Reasonfor Study: Bacteremia History / Clinical: Elevated troponin [...] of tricuspid regurgitation. No evidence of endocarditis. ++++++++++++ ++++++++++++++++++++++++ FINDINGS: ++++++++++++++++++++++++++++++++++++ STAR: The patient was counseled [...] aorta was visualized. The scope was withdrawn undercontinuous suction. The patient tolerated the procedure well [...] Result Date: 06/30/2019 Echocardiography Report Pat.Name: IRIS PASCUALID: [id number] .Date: 06/30/2019 Exam Time: 12:31:00 PM Study [...] mmHg. SVn: Inferior vena cava is normal. Inferiorvena cava shows >50% collapse with respiration consistent [...] LV EF 65.1 % LV EDV 98.1 mlLV EF BP 60.1 % LVEDV BP 102 ml LV SV 52.6 ml LngAxs 7.44 cm LV SV 63.9 ml LngAxs 7.34 cm LV SV BP61.3 ml LVPW LVPWd 1.53 cm Ventricular Septum IVSd 1.39 cm Left Atrium LA VOLBP 57.1 ml Index 32.1ml/m2 Aorta Ao Rtd 2.2 cm (zsc -1.6) LVOT LVOT 1.5 cm LVOTArea 1.77 cm2 Ratios IVS LA Biplane LAVolI BP 32.1 ml/m2 RA Single Plane Right Atrium MO 10.5 mm Right Atrium Sy 40.8 ml Right Atrium Sy 58.6 mm Right Atrium Sy 22.9 ml/m2 Right Atrium Sy 17 cm2 Right Ventricle Right Ventricle 31.9 mm Right Ventricle 24.4 mm Major [place] 82.7 mm MMODE TA Tricuspid Annul 12.6 [...] follow-up with wound care as an outpatient May 4-wound care consult pending and appreciated May 5-appreciate wound care consult. ??Patient is now scheduled for incision and drainage of left decubitus ulcer 56: Patient undergo I&D today with general surgery [...] recommendations from the CDC and WHO DONOVAN OLEARY, TOOL WORKER 07/18/2019 9:24 AM Cosigned by Ekaterina Barlow [...] is now an inpatient. Patient [facility] from [facility] 07[facility]16/19 , patient used 7 days starting with day 1. Discharge plan remains for patient to transfer to [facility] in [facility], Telephone number there is [phone] fax number is [phone] and call Katie at [phone] for updates. criminal justice social worker will follow. * Viviana Beard RN - 07/17/2019 11:01 AM CDT 07/16 inpatient IM letter signed by the patient this am- understood acknowledged * Renay Barba OT - 07/17/2019 10:14 AM CDT OT evaluation orders received as patient transferred back to inpatient status from [facility]. Evaluation not completed this date as [...] file Gets together: Not on file Attends sikh service: Not on file Active member of [...] SCREEN NEGATIVE SAMPLE EXPIRATION: 07/20/2019,2359 UNIT NUMBER [id number] PRODUCT: PC LEUKOPOOR UNIT DIVISION 00 UNIT [...] Sagittal and coronal reconstructions were performed from thedata set. A dose lowering technique was used for this procedure, which may include, but is not limited to, dose reduction techniques, automated exposure control, the use of iterative reconstruction and ALARA/Image Gently techniques. Findings: There is no fracture or dislocation. The reconstructionsconfirm maintenance of vertebral body height. Mild reversal of the normal lordosis and minimal anterolisthesis at C4-5 are attributed to the presence of the collar. Alignment is otherwise satisfactory. There is disc narrowing and paravertebral osteophyte formation at C5-6, C6-7 and C7-T1. The otherintervertebral discs are maintained normally in height. There is mild generalized facet arthropathy. The neural foramina and central canal appear patent. The spinal canal contents, as visualized, appear unremarkable. There is no paraspinal edema or hematoma. There is atherosclerotic calcification in the carotid distributions bilaterally. IMPRESSION: 1. No acute [...] STAR Report Pat.Name: IRIS PASCUAL Nathan Ribeiro.ID: [id number] .Date: 07/04/2019 Exam Time: 12:56:00 PM Study Type:TRANSESOPHAGEAL ECHO (STAR) Height: 62in Weight: 167.65lb BSA: 1.77 m2 Age: 11 1955,64Y Sex: FEMALE BP: 147/68 HR: 67 bpm Sonogrphr: Lacie Victor [facility] Pat. Stat.:Inpatient Reason for Study: Bacteremia [...] 62 Meds: Propofol or Diprivan administered by AnesthesiaStaff, Propofol 130, Lidocain 130 Complications: None Condition: [...] 06/30/2019 Echocardiography Report Pat.Name: IRIS PASCUAL Gema.ID: [id number] St.Date: 06/30/2019 Exam Time: 12:31:00 PM Study [...] mmHg. SVn: Inferior vena cava is normal. Inferiorvena cava shows >50% collapse with respiration consistent [...] LV EF 65.1 % LV EDV 98.1 mlLV EF BP 60.1 % LVEDV BP 102 [...] Atrium Sy 40.8 ml Right Atrium Sy 58.6mm Right Atrium Sy 22.9 ml/m2 Right Atrium Sy 17 cm2 Right Ventricle Right Ventricle 31.9 mm Right Ventricle 24.4 mm Major [place] 82.7 mm MMODE TA Tricuspid Annul 12.6 [...] Question: Reason for Consult? Answer: [facility] Order Specific Question: Has the consulting provider been contacted? Answer: Yes Order Specific Question: Who was the provider consulted? Answer: message left Order Specific Question: Location: Answer: [facility] ??? Inpatient Consult to General Surgery Standing Status: Standing Number of Occurrences: 1 Order Specific Question: Reason for Consult? Answer: wound debridment Order Specific Question: Has the consulting provider been contacted? Answer: Yes Order Specific Question: Location: Answer: [facility] Discussed Blood/Blood Products; would accept if recommended?: Yes By: STANISLAV BISHOP MD, 07/17/2019, 7:45 AM Primary Care Physician: Don Branham MD documented in this encounter Nursing Notes * Mary Beth Foreman RN - 07/19/2019 1:16 PM CDT Nursing report called to Sven at [facility] MARY BETH FOREMAN RN * Mary Beth Foreman RN - 07/19/2019 1:05 PM CDT Spoke to Jamel with [facility] to stop therapy on wound vac [id number]. REF [id number]. MARY BETH FOREMAN RN * Mary Beth Foreman RN - 07/19/2019 12:51 PM CDT Attempted to call nursing report to [facility] three times. Was transferred to a voicemail.[place] answered and made aware that ambulance is headed there way and it is [place] [address] MARY BETH FOREMAN RN * Mary Beth Foreman RN - 07/19/2019 11:00 AM CDT Midline left in place per Carlota Oleary NP * Yoana Ledbetter RN - 07/17/2019 2:51 PM CDT [facility] aware to send replacement to [facility] and pt needs wound vac at [place]. Ref# [id number] documented in this encounter OR Notes * Op Note - Stanislav Bishop MD - 07/17/2019 11:43 AM CDT Date of Procedure: 07/17/19 Preoperative Diagnosis: Procedure(s): Procedure(s): Sharp excisional Debridement of left gluteal fold decubitus ulcer 5 x 6 cm, wound VAC placement Post-operative Diagnosis: Same as above Surgeon(s): Stanislav Bishop MD Inspector Ball Points: Circulating Nurse 1: Kelly Sr RN Scrub [...] (ABNORMAL) POCT glucose (07/19/2019 11:16 AM CDT) GLUCOSE POC 146(H) 70 - 99 MG/DL 07/19/2019 11:17 AM CDT [facility] ORDERS INTERFACE 07/19/2019 11:1 6 AM CDT Donovan Oleary APRN POCT ORDERABLES - DEVICE Final Result Performing Organization Address [facility] Co de Phone Number [facility] ORDERS INTERFACE US * POCT glucose (07/19/2019 7:23 AM CDT) GLUCOSE POC 84 70 - 99 MG/DL 07/19/2019 7:46 AM CDT [facility] ORDERS INTERFACE 07/19/2019 7:23 AM CDT Donovan Oleary APRN POCT ORDERABLES - DEVICE Final Result Performing Organization Address [facility] Co de Phone Number [facility] ORDERS INTERFACE US * (ABNORMAL) COMPREHENSIVE METABOLIC PANEL (07/19/2019 4:40 AM CDT) GLUCOSE 86 70 - 99 MG/DL 07/19/2019 6:01 AM CDT [facility] BUN 16 7 - 18 MG/DL 07/19/2019 6:01 AM CDT [facility] CREATININE S/P/B 0.83 0.55 - 1.02 MG/DL 07/19/2019 6:01 AM CDT [facility] SODIUM S/P/B 141 136 - 145 MMOL/L 07/19/2019 6:01 AM CDT [facility] POTASSIUM S/P/B 3.8 3.5 - 5.1 MMOL/L 07/19/2019 6:01 AM [facility] CHLORIDE S/P/B 103 100 - 108 MMOL/L 07/19/2019 6:01 AM [facility] CO2 32.8(H) 21 - 32 MMOL/L 07/19/2019 6:01 AM [facility] CALCIUM S/P/B 8.7 8.5 - 10.1 MG/DL 07/19/2019 6:01 AM [facility] BILIRUBIN TOTAL S/P/B 0.4 0.2 - 1.2 MG/DL 07/19/2019 6:01 AM [facility] Comment: THIS ASSAY IS NOT RECOMMENDED FOR PATIENTS UNDERGOING TREATMENT WITH ELTROMBOPAG DUE TO THE POTENTIAL FOR FALSELY ELEVATED RESULTS. TOTAL PROTEIN S/P/B 6.7 6.4 - 8.2 G/DL 07/19/2019 6:01 AM [facility] ALBUMIN S/P/B 2.1(L) 3.4 - 5.0 G/DL 07/19/2019 6:01 AM [facility] AST 42(H) 15 - 37 U/L 07/19/2019 6:01 AM [facility] ALT 31 14 - 55 U/L 07/19/2019 6:01 AM [facility] ALKALINE PHOSPHATASE S/P/B 35(L) 50 - 136 U/L 07/19/2019 6:01 AM [facility] ANION GAP 5.2 5 - 15 MMOL/L 07/19/2019 6:01 AM [facility] BUN CREATININE RATIO 19.3 6 - 26 07/19/2019 6:01 AM [facility] A/G RATIO 0.5(L) 1.0 - 2.0 RATIO 07/19/2019 6:01 AM CDT [facility] EGFR NON-AFR. AMER. 75(L) >90 ML/MIN/1.7 3 M2 07/19/2019 6:01 AM CDT [facility] EGFR AFR. AMER. 86(L) >90 ML/MIN/1.7 3 M2 07/19/2019 6:01 AM CDT [facility] Comment: NOTE: eGFR is not calculated for patients <18 years of age. This is an estimated GFR (CKD EPI) and should not be used for calculating drug doses. 07/19/2019 4:40 AM CDT Donovan Oleary APRN LABORATORY Final Re sult [facility] [address] [place] [address], * (ABNORMAL) CBC W/DIFF AUTOMATED (07/19/2019 4:40 AM CDT) WBC 5.8 4.8 - 10.8 x10'3/uL 07/19/2019 5:16 AM CDT [facility] RBC 3.36(L) 4.10 - 5.10 x10'6/uL 07/19/2019 5:16 AM CDT [facility] HGB 9.7(L) 12.0 - 16.0 G/DL 07/19/2019 5:16 AM CDT [facility] HCT 31.8(L) 36 - 46 % 07/19/2019 5:16 AM CDT [facility] MCV 94.6 80 - 100 FL 07/19/2019 5:16 AM CDT [facility] MCH 28.9 26.0 - 34.0 PG 07/19/2019 5:16 AM CDT [facility] MCHC 30.5(L) 31.0 - 37.0 G/DL 07/19/2019 5:16 AM CDT [facility] RDW 16.5(H) 11.5 - 14.5 % 07/19/2019 5:16 AM CDT [facility] PLT 290 150 - 350 x10'3/uL 07/19/2019 5:16 AM CDT [facility] CBC COMMENT AUTOMATED RBC MORPHOLOGY AND PLATELET EVALUATION NORMAL 07/19/2019 5:16 AM CDT [facility] NEUTROPHILS % 56.8 50 - 70 % 07/19/2019 5:16 AM CDT [facility] LYMPHOCYTES % 25.0 18 - 42 % 07/19/2019 5:16 AM CDT [facility] MONOCYTES % 9.8 2.0 - 11.0 % 07/19/2019 5:16 AM CDT [facility] EOSINOPHILS 7.4(H) 1.0 - 3.0 % 07/19/2019 5:16 AM CDT [facility] BASOPHILS 1.0 0.0 - 1.0 % 07/19/2019 5:16 AM CDT [facility] ABS. NEUTROPHILS TOTAL 3.32 1.69 - 7.81 x10'3/uL 07/19/2019 5:16 AM T [facility] 07/19/2019 4:40 AM CDT us Donovan Oleary APRN LABORATORY Final Re sult [facility] [address] [place] [address], * MAGNESIUM (07/19/2019 4:40 AM CDT) MAGNESIUM 2.0 1.8 - 2.4 MG/DL 07/19/2019 6:01 AM CDT [facility] 07/19/2019 4:40 AM CDT Marlon Kenny MD LABORATORY Final Result [facility] [address] [place] [address], [place] [phone] * (ABNORMAL) POCT glucose (07/18/2019 7:19 PM CDT) GLUCOSE POC 232(H) 70 - 99 MG/DL 07/18/2019 7:27 PM CDT [facility] ORDERS INTERFACE 07/18/2019 7:19 PM CDT us Donovan Oleary APRN POCT ORDERABLES - DEVICE Final Result Performing Organization Address [facility] Co de Phone Number [facility] ORDERS INTERFACE US * (ABNORMAL) POCT glucose (07/18/2019 4:38 PM CDT) GLUCOSE POC 179(H) 70 - 99 MG/DL 07/18/2019 4:41 PM CDT [facility] ORDERS INTERFACE 07/18/2019 4:38 PM CDT us Donovan Oleary APRN POCT ORDERABLES - DEVICE Final Result Performing Organization Address [facility]/ZIP Co de Phone Number [facility] ORDERS INTERFACE US * (ABNORMAL) POCT glucose (07/18/2019 11:35 AM CDT) GLUCOSE POC 194(H) 70 - 99 MG/DL 07/18/2019 11:37 AM CDT [facility] ORDERS INTERFACE 07/18/2019 11:3 5 AM CDT us Donovan Oleary TOOL WORKER POCT ORDERABLES - DEVICE Final Result Performing Organization Address City/[facility]/ZIP Co de Phone Number [facility] ORDERS INTERFACE US * (ABNORMAL) POCT glucose (07/18/2019 7:38 AM CDT) GLUCOSE POC 131(H) 70 - 99 MG/DL 07/18/2019 7:43 AM CDT [facility] ORDERS INTERFACE 07/18/2019 7:38 AM CDT us Donovan Oleary [place] POCT ORDERABLES - DEVICE Final Result [facility] ORDERS INTERFACE US * (ABNORMAL) COMPREHENSIVE METABOLIC PANEL (07/18/2019 5:05 AM CDT) GLUCOSE 183(H) 70 - 99 MG/DL 07/18/2019 5:58 AM CDT [facility] BUN 16 7 - 18 MG/DL 07/18/2019 5:58 AM CDT [facility] CREATININE S/P/B 0.96 0.55 - 1.02 MG/DL 07/18/2019 5:58 AM CDT [facility] SODIUM S/P/B 139 136 - 145 MMOL/L 07/18/2019 5:58 AM CDT [facility] POTASSIUM S/P/B 4.0 3.5 - 5.1 MMOL/L 07/18/2019 5:58 AM CDT [facility] CHLORIDE S/P/B 102 100 - 108 MMOL/L 07/18/2019 5:58 AM CDT [facility] CO2 32.7(H) 21 - 32 MMOL/L 07/18/2019 5:58 AM CDT [facility] CALCIUM S/P/B 8.1(L) 8.5 - 10.1 MG/DL 07/18/2019 5:58 AM CDT [facility] BILIRUBIN TOTAL S/P/B 0.4 0.2 - 1.2 MG/DL 07/18/2019 5:58 AM CDT [facility] Comment: THIS ASSAY IS NOT RECOMMENDED FOR PATIENTS UNDERGOING TREATMENT WITH ELTROMBOPAG DUE TO THE POTENTIAL FOR FALSELY ELEVATED RESULTS. TOTAL PROTEIN S/P/B 6.4 6.4 - 8.2 G/DL 07/18/2019 5:58 AM [facility] ALBUMIN S/P/B 1.9(L) 3.4 - 5.0 G/DL 07/18/2019 5:58 AM [facility] AST 38(H) 15 - 37 U/L 07/18/2019 5:58 AM [facility] ALT 30 14 - 55 U/L 07/18/2019 5:58 AM [facility] ALKALINE PHOSPHATASE S/P/B 36(L) 50 - 136 U/L 07/18/2019 5:58 AM [facility] ANION GAP 4.3(L) 5 - 15 MMOL/L 07/18/2019 5:58 AM [facility] BUN CREATININE RATIO 16.7 6 - 26 07/18/2019 5:58 AM [facility] A/G RATIO 0.4(L) 1.0 - 2.0 RATIO 07/18/2019 5:58 AM [facility] EGFR NON-AFR. AMER. 62(L) >90 ML/MIN/1.7 3 M2 07/18/2019 5:58 AM [facility] EGFR AFR. AMER. 72(L) >90 ML/MIN/1.7 3 M2 07/18/2019 5:58 AM [facility] Comment: NOTE: eGFR is not calculated for patients <18 years of age. This is an estimated GFR (CKD EPI) and should not be used for calculating drug doses. 07/18/2019 5:05 AM CDT Christopher Engele TOOL WORKER LABORATORY Final Re sult [facility] [address] [place] [address], * (ABNORMAL) CBC W/DIFF AUTOMATED (07/18/2019 5:05 AM CDT) WBC 5.6 4.8 - 10.8 x10'3/uL 07/18/2019 5:41 AM CDT [facility] RBC 3.12(L) 4.10 - 5.10 x10'6/uL 07/18/2019 5:41 AM CDT [facility] HGB 9.4(L) 12.0 - 16.0 G/DL 07/18/2019 5:41 AM CDT [facility] HCT 29.3(L) 36 - 46 % 07/18/2019 5:41 AM CDT [facility] MCV 93.9 80 - 100 FL 07/18/2019 5:41 AM CDT [facility] MCH 30.1 26.0 - 34.0 PG 07/18/2019 5:41 AM CDT [facility] MCHC 32.1 31.0 - 37.0 G/DL 07/18/2019 5:41 AM CDT [facility] RDW 16.4(H) 11.5 - 14.5 % 07/18/2019 5:41 AM CDT [facility] PLT 288 150 - 350 x10'3/uL 07/18/2019 5:41 AM CDT [facility] CBC COMMENT AUTOMATED RBC MORPHOLOGY AND PLATELET EVALUATION NORMAL 07/18/2019 5:41 AM CDT [facility] NEUTROPHILS % 60.9 50 - 70 % 07/18/2019 5:41 AM CDT [facility] LYMPHOCYTES % 23.2 18 - 42 % 07/18/2019 5:41 AM CDT [facility] MONOCYTES % 7.6 2.0 - 11.0 % 07/18/2019 5:41 AM CDT [facility] EOSINOPHILS 7.2(H) 1.0 - 3.0 % 07/18/2019 5:41 AM CDT [facility] BASOPHILS 1.1(H) 0.0 - 1.0 % 07/18/2019 5:41 AM CDT [facility] ABS. NEUTROPHILS TOTAL 3.39 1.69 - 7.81 x10'3/uL 07/18/2019 5:41 AM CDT [facility] 07/18/2019 5:05 AM CDT Donovan Oleary APRN LABORATORY Final Re sult Performing Organization Address City/[facility]/ZIP Co de Phone Number [facility] [address] [place] [address], * MAGNESIUM (07/18/2019 5:05 AM CDT) MAGNESIUM 2.0 1.8 - 2.4 MG/DL 07/18/2019 5:58 AM CDT [facility] 07/18/2019 5:05 AM CDT Marlon Kenny MD LABORATORY Final Result [facility] [address] [place] [address], * (ABNORMAL) CK (CPK) (07/18/2019 5:05 AM CDT) CPK 302(H) 26 - 192 U/L 07/18/2019 5:58 AM CDT [facility] 07/18/2019 5:05 AM CDT Marlon Kenny MD LABORATORY Final Result [facility] [address] [place] [address], [place] [phone] * (ABNORMAL) POCT glucose (07/17/2019 7:50 PM CDT) GLUCOSE POC 166(H) 70 - 99 MG/DL 07/17/2019 8:01 PM CDT [facility] ORDERS INTERFACE 07/17/2019 7:50 PM CDT Donovan Oleary TOOL WORKER POCT ORDERABLES - DEVICE Final Result Performing Organization Address [facility] Co de Phone Number [facility] ORDERS INTERFACE US * (ABNORMAL) POCT glucose (07/17/2019 5:33 PM CDT) GLUCOSE POC 141(H) 70 - 99 MG/DL 07/17/2019 5:34 PM CDT [facility] ORDERS INTERFACE 07/17/2019 5:33 PM CDT Donovan Oleary APRN POCT ORDERABLES - DEVICE Final Result Performing Organization Address City/[facility]/ZIP Co de Phone Number [facility] ORDERS INTERFACE US * (ABNORMAL) POCT glucose (07/17/2019 2:19 PM CDT) GLUCOSE POC 101(H) 70 - 99 MG/DL 07/17/2019 2:22 PM CDT [facility] ORDERS INTERFACE 07/17/2019 2:19 PM CDT Deyviopher Nina TOOL WORKER POCT ORDERABLES - DEVICE Final Result Performing Organization Address City/[facility]/ZIP Co de Phone Number [facility] ORDERS INTERFACE US * (ABNORMAL) POCT glucose (07/17/2019 1:11 PM CDT) GLUCOSE POC 69(L) 70 - 99 MG/DL 07/17/2019 1:12 PM CDT [facility] ORDERS INTERFACE 07/17/2019 1:11 PM CDT us Donovan Oleary [place] POCT ORDERABLES - DEVICE Final Result [facility] ORDERS INTERFACE US * (ABNORMAL) CULTURE, ANAEROBIC (07/17/2019 11:00 AM CDT) SPEC DESCRIPTION BUTTOCK,LEFT 07/17/2019 5:18 PM CDT [facility] SPECIAL REQUESTS NO SPECIAL REQUEST 07/17/2019 5:18 PM CDT [facility] GRAM STAIN RESULT MANY WHITE BLOOD CELLS SEEN 07/18/2019 12:15 PM CDT [facility] GRAM STAIN RESULT MANY RED BLOOD CELLS SEEN 07/18/2019 12:15 PM CDT [facility] GRAM STAIN RESULT MANY GRAM NEGATIVE RODS 07/18/2019 12:15 PM CDT [facility] GRAM STAIN RESULT FEW GRAM POSITIVE COCCI 07/18/2019 12:15 PM CDT [facility] CULTURE RESULT HEAVY GROWTH OF ESCHERICHIA COLI SUSCEPTIBILITY ON PREVIOUS SPECIMEN [id number] (A) 07/22/2019 9:52 AM CDT [facility] CULTURE RESULT LIGHT GROWTH OF VANCOMYCIN RESISTANT ENTEROCOCCUS FAECALIS SUSCEPTIBILITY ON PREVIOUS SPECIMEN [id number] (A) 07/22/2019 9:52 AM CDT [facility] CULTURE RESULT LIGHT GROWTH OF BACTEROIDES THETAIOTAOMICRON BETA LACTAMASE POSITIVE SUSCEPTIBILTY NOT ROUTINELY PERFORMED. SAVING ISOLATE FOR 5 DAYS. CONTACT MICROBIOLOGY DEPARTMENT IF FURTHER WORKUP IS INDICATED. (A) 07/22/2019 9:52 AM CDT [facility] CULTURE RESULT NOTE: ANAEROBIC CULTURES ARE ROUTINELY SCREENED FOR BOTH AEROBIC AND ANAEROBIC ORGANISMS. 07/22/2019 9:52 AM CDT [facility] STRUCTURE OF LEFT BUTTOCK / Unknown 07/17/2019 11:00 AM CDT 07/17/2019 6:58 PM CDT Donovan Oleary APRN MICROBIOLOGY - GENERAL O RDERABLES Final Result [facility] [address] [place] [address], [place] [phone] [facility] [address] [place] [address], [place] [phone] * (ABNORMAL) CULTURE, ANAEROBIC (07/17/2019 11:00 AM CDT) SPEC DESCRIPTION BUTTOCK,LEFT 07/17/2019 5:18 PM CDT [facility] SPECIAL REQUESTS NO SPECIAL REQUEST 07/17/2019 5:18 PM CDT [facility] GRAM STAIN RESULT RARE WHITE BLOOD CELLS SEEN 07/18/2019 12:09 PM CDT [facility] GRAM STAIN RESULT RARE RED BLOOD CELLS SEEN 07/18/2019 12:09 PM CDT [facility] GRAM STAIN RESULT MANY GRAM NEGATIVE RODS 07/18/2019 12:09 PM CDT [facility] GRAM STAIN RESULT RARE GRAM POSITIVE COCCI 07/18/2019 12:09 PM CDT [facility] CULTURE RESULT HEAVY GROWTH OF ESCHERICHIA COLI (A) 07/22/2019 9:51 AM CDT [facility] CULTURE RESULT LIGHT GROWTH OF VANCOMYCIN RESISTANT ENTEROCOCCUS FAECALIS (A) 07/22/2019 9:51 AM CDT [facility] CULTURE RESULT MODERATE GROWTH OF BACTEROIDES THETAIOTAOMICRON BETA LACTAMASE POSITIVE SUSCEPTIBILTY NOT ROUTINELY PERFORMED. SAVING ISOLATE FOR 5 DAYS. CONTACT MICROBIOLOGY DEPARTMENT IF FURTHER WORKUP IS INDICATED. (A) 07/22/2019 9:51 AM CDT [facility] CULTURE RESULT NOTE: ANAEROBIC CULTURES ARE ROUTINELY SCREENED FOR BOTH AEROBIC AND ANAEROBIC ORGANISMS. 07/22/2019 9:51 AM CDT [facility] STRUCTURE OF LEFT BUTTOCK / Unknown [...] MICROBIOLOGY - GENERAL O RDERABLES Final Result [facility] [address] [place] [address], [place] [phone] [facility] [address] [place] [address], [place] [phone] * POCT glucose (07/17/2019 7:17 AM CDT) [facility] Signature GLUCOSE POC 73 70 - 99 MG/DL 07/17/2019 7:24 AM CDT [facility] ORDERS INTERFACE 07/17/2019 7:17 AM CDT us Donovan Oleary APRN POCT ORDERABLES - DEVICE Final Result [facility] ORDERS INTERFACE US * MAGNESIUM (07/17/2019 4:00 AM CDT) MAGNESIUM 2.2 1.8 - 2.4 MG/DL 07/17/2019 8:12 AM CDT [facility] 07/17/2019 4:00 AM CDT us Marlon Kenny MD LABORATORY Final Result Performing Organization Address City/[facility]/ZIP Co de Phone Number [facility] [address] [place] [address], [place] [phone] * TYPE & SCREEN (07/17/2019 4:00 AM CDT) UNITS ORDERED 1 07/17/2019 6:11 AM CDT [facility] ABO/RH O POSITIVE 07/17/2019 6:11 AM CDT [facility] ANTIBODY SCREEN NEGATIVE 0 6:11 AM CDT [facility] SAMPLE EXPIRATION 07/20/2019,2359 07/17/2019 6:11 AM CDT [facility] BLOOD UNIT NUMBER [id number] 07/17/2019 8:19 AM CDT [facility] PRODUCT: PC LEUKOPOOR 07/17/2019 8:19 AM CDT [facility] UNIT DIVISION 00 07/17/2019 8:19 AM CDT [facility] BLOOD UNIT STATUS TRANSFUSED,FINAL 07/18/2019 4:19 PM CDT [facility] ISSUE DATE/TIME [id number] 020 4:19 PM CDT [facility] PRODUCT CODE [id number] 07/18/2019 4:19 PM CDT [facility] ABO/RH Unit O POS 07/18/2019 4:19 PM CDT [facility] ABO/RH UNIT ISBT CODE 5100 07/18/2019 4:19 PM CDT [facility] BLOOD UNIT EXPIRATION DATE [id number] 07/18/2019 4:19 PM CDT [facility] TRANSFUSION STATUS OK TO TRANSFUSE 07/17/2019 8:19 AM CDT [facility] CROSSMATCH COMPATIBLE 07/17/2019 8:19 AM CDT [facility] 07/17/2019 4:00 AM CDT Marlon Kenny MD BLOOD BANK TEST ORDERABLES Final Result [facility] [address] [place] [address], [place] [phone] * (ABNORMAL) CBC W/DIFF AUTOMATED (07/17/2019 4:00 AM CDT) WBC 4.9 4.8 - 10.8 x10'3/uL 07/17/2019 4:46 AM CDT [facility] RBC 2.66(L) 4.10 - 5.10 x10'6/uL 07/17/2019 4:46 AM CDT [facility] HGB 7.7(L) 12.0 - 16.0 G/DL 07/17/2019 4:46 AM CDT [facility] HCT 24.7(L) 36 - 46 % 07/17/2019 4:46 AM CDT [facility] MCV 92.9 80 - 100 FL 07/17/2019 4:46 AM CDT [facility] MCH 28.9 26.0 - 34.0 PG 07/17/2019 4:46 AM CDT [facility] MCHC 31.2 31.0 - 37.0 G/DL 07/17/2019 4:46 AM CDT [facility] RDW 16.8(H) 11.5 - 14.5 % 07/17/2019 4:46 AM CDT [facility] PLT 309 150 - 350 x10'3/uL 07/17/2019 4:46 AM CDT [facility] CBC COMMENT AUTOMATED RBC MORPHOLOGY AND PLATELET EVALUATION NORMAL 07/17/2019 4:46 AM CDT [facility] NEUTROPHILS % 56.8 50 - 70 % 07/17/2019 4:46 AM CDT [facility] LYMPHOCYTES % 26.8 18 - 42 % 07/17/2019 4:46 AM CDT [facility] MONOCYTES % 8.4 2.0 - 11.0 % 07/17/2019 4:46 AM CDT [facility] EOSINOPHILS 7.0(H) 1.0 - 3.0 % 07/17/2019 4:46 AM CDT [facility] BASOPHILS 1.0 0.0 - 1.0 % 07/17/2019 4:46 AM CDT [facility] ABS. NEUTROPHILS TOTAL 2.78 1.69 - 7.81 x10'3/uL 07/17/2019 4:46 AM T [facility] 07/17/2019 4:00 AM CDT Marlon Kenny MD LABORATORY Final Result [facility] [address] [place] [address], [place] [phone] * (ABNORMAL) BASIC METABOLIC PANEL (07/17/2019 4:00 AM CDT) [facility] Signature GLUCOSE 103(H) 70 - 99 MG/DL 07/17/2019 8:12 AM T [facility] BUN 14 7 - 18 MG/DL 07/17/2019 8:12 AM T [facility] CREATININE S/P/B 0.88 0.55 - 1.02 MG/DL 07/17/2019 8:12 AM T [facility] SODIUM S/P/B 141 136 - 145 MMOL/L 07/17/2019 8:12 AM T [facility] POTASSIUM S/P/B 4.0 3.5 - 5.1 MMOL/L 07/17/2019 8:12 AM [facility] CHLORIDE S/P/B 103 100 - 108 MMOL/L 07/17/2019 8:12 AM [facility] CO2 31.7 21 - 32 MMOL/L 07/17/2019 8:12 AM [facility] CALCIUM S/P/B 8.2(L) 8.5 - 10.1 MG/DL 07/17/2019 8:12 AM [facility] ANION GAP 6.3 5 - 15 MMOL/L 07/17/2019 8:12 AM T [facility] BUN CREATININE RATIO 15.9 6 - 26 07/17/2019 8:12 AM [facility] EGFR NON-AFR. AMER. 69(L) >90 ML/MIN/1.7 3 M2 07/17/2019 8:12 AM T [facility] EGFR AFR. AMER. 80(L) >90 ML/MIN/1.7 3 M2 07/17/2019 8:12 AM T [facility] Comment: NOTE: eGFR is not calculated for patients <18 years of age. This is an estimated GFR (CKD EPI) and should not be used for calculating drug doses. 07/17/2019 4:00 AM CDT Marlon Kenny MD LABORATORY Final Result [facility] [address] [place] [address], [place] [phone] * (ABNORMAL) POCT glucose (07/16/2019 8:13 PM CDT) [facility] GLUCOSE POC 182(H) 70 - 99 MG/DL 07/16/2019 8:26 PM CDT [facility] ORDERS INTERFACE 07/16/2019 8:13 PM CDT Marlon Kenny MD POCT ORDERABLES - DEVICE Final R esult [facility] ORDERS INTERFACE US documented in this encounter Visit Diagnoses Not on filedocumented in this encounter Administered Medications Inactive Administered [...] Given 07/18/2019 8:08 AM CDT 40 mg cefTRIAXone (ROCEPHIN) 1 [...] Discharge Readmit Given 07/18/2019 8:08 AM CDT fluconazole (DIFLUCAN) IVPB 400 mg 400 mg, [...] Comment: surgery)1024 (MAY Hold - Provider: User Epic - [...] (Given - Provider: Mary Beth Foreman RN) ceFAZolin (ANCEF) 2 g in sterile water 20 mL IV (COMPLETED) 2 g, Intravenous, at 240 mL/hr, die sinker to O.R., 1 dose, First dose on [...] 0657 (Not Given - Provider: Mary Beth Foreman RN - Reason: Other - Comment: wound vac [...] 1043 (New Bag - Provider: Mary Beth Foreman RN)1157 (Infusion Stop Time - Provider: Mary Beth Foreman RN) gabapentin (NEURONTIN) capsule 300 mg 300 mg, Oral, 3 times daily, First dose (after last modification) on Mon07/16/19 at 2100, Until Discontinued, Discharge Readmit 0807 (Not Given - Provider: Yoana Ledbetter RN - Reason: NPO - Comment: per dr bishop)1024 (MAY Hold - Provider: User Epic - Reason: Unreviewed Transfer Orders)1227 (MAY Unhold - Provider: User Chanelle)1553 (Given - Provider: Yoana Ledbetter RN)2130 (Given - Provider: Eloisa Chaidez RN) 0807 (Given - Provider: Yoana Ledbetter RN)1559 (Given - Provider: Yoana Ledbetter RN)2123 (Given - Provider: Jaylin Veliz RN) 0725 (Given - Provider: Mary Beth Foreman, SPENCER) heparin (porcine) injection 5,000 Units 5,000 Units, Subcutaneous, Every 12 hours scheduled (2 times per day), First dose (after last modification) on Mon07/16/19 at 2100, Until Discontinued, Discharge Readmit 0900 (Hold - Provider: Jodi Asif RN - Reason: Other - Comment: surgery)1024 (MAR Hold - Provider: User Epic - Reason: Unreviewed Transfer Orders)1227 (MAR Unhold - Provider: User Epic)2128 (Given - Provider: Eloisa Chaidez, SPENCER) 08 (Given - Provider: Yoana Ledbetter, SPENCER)2122 (Given - Provider: Jaylin Veliz, SPENCER) 07 (Given - Provider: Mary Beth Foreman RN) insulin glargine (LANTUS) injection 15 Units 15 Units, Subcutaneous, Nightly at bedtime, First dose (after last modification) on Mon07/16/19 at 2100, Until Discontinued, Discharge Readmit 1024 (MAR Hold - Provider: User Epic - Reason: Unreviewed Transfer Orders)1227 (MAR Unhold - Provider: User Epic)2130 (Given - Provider: Eloisa Chaidez, SPENCER) 2122 (Given - Provider: Jaylin Veliz, SPENCER) insulin lispro (HUMALOG) injection 0-16 Units(Linked [...] units and Call Physician], Discharge Readmit 1024 (MAY Hold - Provider: [...] Provider: Eloisa Chaidez RN - Reason: NPO)1024 (MAR Hold - Provider: User Epic - Reason: Unreviewed Transfer Orders)1227 (MAR Unhold - Provider: User Epic) 0501 (Given - Provider: Eloisa Chaidez, RN) 0506 (Given - Provider: Jaylin Veliz, SPENCER) pantoprazole EC (PROTONIX) tablet 40 mg 40 mg, Oral, Daily, First dose (after last modification) on Mon07/17/19 at 0900, Until Discontinued, Do not break, chew, or crush., Discharge Readmit 0809 (Not Given - Provider: Yoana Ledbetter, SPENCER - Reason: NPO - Comment: per dr bishop)1024 (MAY Hold - Provider: User Epic - Reason: Unreviewed Transfer Orders)1227 (MAY Unhold - Provider: User Epic) 0808 (Given - Provider: Yoana Ledbetter, SPENCER) 0725 (Given - Provider: Mary Beth Foreman RN) Continuous Medication Order 07/17/2019 07/18/2019 07/19/2019 lactated ringers infusion at 10 mL/hr, Intravenous, Continuous, Starting on Mon07/17/19 at 1000, Until Mon07/19/19 at 1523, PACU 1008 (New Bag - Provider: Kelly Sr RN) sodium chloride 0.9% infusion (CANCELED) at 10 mL/hr, Intravenous, Continuous, Starting on Mon07/17/19 at 0815, Until Chari 07/18/19 at 0814, Infuse at TKO rate 1024 (MAY Hold - Provider: User Epic - Reason: Unreviewed Transfer Orders)1104 (New Bag - Provider: Cole Ham CRNA)1105 (Infusion Stop Time - Provider: Cole Ham CRNA)1227 (MAR Unhold - Provider: User Epic)1248 (Not Given [...] sources in 24 hours., Discharge Readmit 1024 (MAY Hold - Provider: [...] documented as of this encounter Care Teams Business Systems Architect Relationship Specialty Start Date End Date Don Branham MD [address] [place] [address] PCP - General EMERGENCY MEDICINE 05/10/19 Damon Swanson MD INTERNAL MEDICINE 12/10/18 documented as of this encounter
--- OUTSIDE RECORDS SUMMARY | 2024-02-26 21:24 | XMS_ITS | Encounter Summary ---
Author Organization [facility] Address [address] [place] [address]. [place] [address] [place] [address] Care Team Providers Care Credit Collection Associate Name Role Phone Damon Swanson MD Unavailable Don Branham MD Primary Care Provider [phone] Encounter Details Date Type Department Care Team (Latest Contact Info) Description 07/17/2019 Travel Social History Tobacco Use Types Packs/Day [...] documented as of this encounter Care Teams Credit Collection Associate Relationship Specialty Start Date End Date Don Branham MD [address] [place] [address] PCP - General EMERGENCY MEDICINE 05/10/19 Damon Swanson MD INTERNAL MEDICINE 12/10/18 documented as of this encounter
--- OUTSIDE RECORDS SUMMARY | 2024-02-26 21:24 | XMS_ITS | Encounter Summary ---
Author Organization [facility] Address [address] [place] [address]. [place] [address] [place] [address] Care Team Providers Care Registered Nurse First Assistant Name Role Phone Damon Swanson MD Unavailable [phone] Don Branham MD Primary Care Provider Reason for Visit * Auth/Cert Specialty Diagnoses / Procedures Referred By Contac t Referred To Contact Diagnoses Infected decubitus ulcer Procedures INP Referral ID Status Reason Start Date Expiration Date Visits Re quested Visits Authorized [id number] 1 1 Encounter Details Date Type Department Care Team (Late st Contact Info) Description 07/17/2019 10:12 AM CDT Anesthesia Event [facility] [address] [place] [address] Cole Ham CRNA [address] [place] [id number] Lyle Carter MD [address] [facility] [address] [address] Anesthesia Record Procedure Summary Procedure Name Responsible Anesthesiologist Anesthesia Start Time Anesthesia Stop Time Debridement left gluteal fold, wound VAC placement (Left: Buttocks) Cole Hma CRNA 07/17/19 1012 07/17/19 1132 Events Date Time Event Comment 07/17/2019 0839 0839 AN Anesthesia Prepped 0954 AN SOUND ENGINEER AUDIO CONTROL Prepped 1012 An Start Patient ID and consent checked and patient reassessed. 1012 An Start Data 1017 Nasal Cannula Applied 1020 Anesthesia Ready 1124 Nasal Cannula Removed 1130 Quick Note PRBC infused 1132 an stop data 1132 Post Anesthetic Care Handoff I completed my handoff to the receiving nurse during which we: 1. Identified the patient 2. Identified the responsible provider 3. Reviewed the pertinent medical history 4. Discussed the surgical course 5. Reviewed intra-op anesthesia management and issues during anesthesia 6. Set expectations for post-procedure period 7. Allowed opportunity for questions and acknowledgement of understanding. 1132 An Stop Meds Name Total midazolam (VERSED) 1 mg/mL injection 2 m g fentaNYL (SUBLIMAZE) 100 mcg/2 mL inject ion 100 mcg lidocaine (PF) (XYLOCAINE) 1% injection 50 mg propofol (DIPRIVAN) 200 mg/20 mL injecti on 449 mg lactated ringers infusion 500 mL sodium chloride 0.9% infusion 250 mL * Agents Name O2 N2O Air Ancillary O2 * Blood Name Total PRBC 350 mL Lines, Drains, and Airways Type Details Placement Removal Wound 06/28/19; 015; Leg; Posterior, Proximal, Right, Upper; Pressure ulcer/injury; Unstagable 06/28/19156 by Sharon Nixon RN Kaplan Catheter 06/28/19; 180; No; Decubitus - Stage 3 or 4 Sacral or perineal pressure ulcer; 1; Hand hygiene performed, Site cleansed with sterile antiseptic, Sterile gloves, drape and lubricant used, Catheter inserted using aseptic technique, Kaplan care post catheter insertion, Anchoring device applied, Drainage bag secured below level of bladder, Closed system maintained; Stat lock; Straight-tip; 16 Fr. 06/28/191807 by Joleen Aguila RN Wound 06/28/192029; Heel ; Posterior, Right; Pressure ulcer/injury; Unstagable 06/28/192029 by Venkat Pak RN Wound 06/28/192029; Head ; Left, Upper; Laceration 06/28/192029 by Venkat Pak RN Midline Single Lumen Placement Date: 07/09/19; Placement Time: 1533; Placed Outside of This Facility?: No; Orientation: Right; Location: Brachial; Site Prep: Chlorhexidine; Local Anesthetic: Injectable; Inserted By: Cyndy gordon RN; Insertion attempts: 1; Ultrasound-guided Placement?: Yes; Patient Tolerance: Tolerated well 07/09/191533 by Cyndy Gordon RN Wound 07/09/19; 1999; Coccyx; Left; Pressure ulcer/injury; Unstagable 07/09/191999 by MAGDALENA Vallecillo Wound 07/17/19; 0802; Leg; Distal, Left, Posterior; Pressure ulcer/injury 07/17/19 0802 by Yoana Ledbetter RN Supraglottic Airway Placement Date: 07/17/19; Placement Time: 1017; Airway Device: Other (Comment) (Nasal Supernnova); Breath Sounds:Clear bilaterally; Breath Sound:Clear Bilaterally; Placement Verified By: Capnography, Chest Rise; Removal Date: 07/17/19; Removal Time: 1124; Removal Person: SOUND ENGINEER AUDIO CONTROL; Removal Reason: End of Case 07/17/19 1017 by Cole Ham CRNA 07/17/19 1124 by Cole Ham CRNA Surgical/Incision 07/17/19; 1105; Surgical Wound; Buttocks; Left; Wound irrigated with hydrogen peroxide and normal saline mixed 50/50.Wound vac placed to left gluteal fold.; 07/19/19; 1518 07/17/19 1105 by Kelly Spencer RN 07/19/19 1518 by Automatic Discharge Provider documented in this encounter Social History Tobacco [...] Sign Reading Time Taken Comments Blood Pressure 104/41 07/17/2019 10:50 AM CDT Pulse 61 07/17/2019 10:50 AM CDT Temperature 38 ??C (100.4 ??F) 07/17/2019 10:50 AM CD T Respiratory Rate 8 07/17/2019 10:50 AM CDT Oxygen Saturation - - Inhaled Oxygen Concentration - - Weight - - Height - - Body Mass Index - - documented in this encounter Functional Status * RETIRED Are [...] Chaidez RN Active documented in this encounter OR Notes * Anesthesia Postprocedure Evaluation - Tanner Unger CRNA - 07/18/2019 12:08 PM CDT Anesthesia Post-op Note Iris Pascual Procedure(s): Debridement left gluteal fold, wound VAC placement (Left Buttocks) Anesthesia type: general Vitals: 07/18/19 0504 BP: 126/55 Vitals: 07/18/19 0504 Pulse: 73 Vitals: 07/18/19 0504 Resp: 18 Vitals: 07/18/19 0504 Temp: 36.9 ??C Vitals: 07/18/19 0504 SpO2: 97% Patient Location: Inpatient Unit Level of Consciousness: awake, oriented and alert Pain Management: adequate analgesia Airway Patency: patent Respiratory Status: acceptable Cardiovascular Status: acceptable Post-Op Nausea: none Postoperative Hydration: euvolemic Complications: no anesthesia complication * Anesthesia Preprocedure Evaluation - Lyle Carter MD - 07/17/2019 8:36 AM CDT Anesthesia ROS/MED History Reviewed: Patient summary , Nursing notes , ECG, Family history anesthesia, Anesthesia history , Medications , Labs , Images/Studies Pre-Anesthetic State: alert, awake and responds appropriately no history of anesthetic complications Pulmonary Cardiovascular (+) hypertension, Peripheral vascular disease, hyperlipidemia Neuro/Psych (+) psychiatric problem, (schizophrenia) GI/Hepatic/Renal Endo/Other (+) diabetes mellitus, (type 2), (sub Q insulin), (Using Oral hypoglycemic), hypothyroidism, blood dyscrasia, (Anemia) Comments: Breast cancer. GENERAL COMMENTS -- Codeine -- Nausea and Vomiting Past Medical History: No date: Cancer ([facility]) Comment: breast No date: Diabetes mellitus ([facility]) No date: Disease of thyroid gland No date: Hypertension No date: PVD (peripheral vascular disease) ([facility]) No date: Schizophrenia ([facility]) Past Surgical History: No date: BREAST SURGERY; Bilateral No date: KNEE SURGERY; Right No date: REMOVAL OF OVARY(S); Left No date: UPPER ARM/ELBOW SURGERY UNLISTED; Right ECHO 06/30 ++++++++++++++++++++++++++++++++++++ SUMMARY: ++++++++++++++++++++++++++++++++++++ The left ventricular systolic function is normal. Estimated left ventricular ejection fraction is 55-60%. Moderate concentric left ventricular hypertrophy. Wall motion appears normal in all segments. Trace aortic regurgitation. Mild mitral regurgitation. A trace of tricuspid regurgitation. No evidence of endocarditis. ? Physical Evaluation Airway Mallampati: II TM Distance: >3 FB Neck ROM: normal Dental (edentulous) Pulmonary Pulmonary exam normal (+) decreased breath sounds, (diminished bilaterally) Cardiovascular Rhythm: regular Rate: normal Cardiovascular exam normal Other findings: Blood pressure 116/57, pulse 78, temperature 37.1 ??C, temperature source Oral, resp. rate 16, height 5' 2 (1.575 m), weight 80.9 kg (178 lb 5.6 oz), SpO2 98 %. 07/17/19 0400 WBC 4.9 RBC 2.66* HGB 7.7* HCT 24.7* PLT 309 NA 141 K 4.0 CL 103 CO2 31.7 AGAP 6.3 BUN 14 CR 0.88 BUNCREATININ 15.9 GFRNON 69* GFR 80* GLU 103* CA 8.2* Anesthesia Plan ASA 3 Intravenous Induction Anesthesia type: general Discussed potential risks of General Anesthesia including but not limited to corneal abrasion, visual impairment or visual loss, mouth injury, dental damage, sore throat, hoarseness, esophageal injury, awareness under anesthesia, nerve injury due to positioning, aspiration, pneumonia, stroke, cardiac event, adverse drug reactions and . Tiva anesthetic planned and discussed. Possible GA as needed. Patient is significantly anemic. Ideally her transfusion will be started prior to this procedure, but certainly does not need to be completed by then. As this should not be a procedure with significant blood loss. Informed Consent Anesthetic plan and risks discussed with patient of whom consent was obtained. . documented in this encounter Plan of Treatment Not on file documented as of this encounter Visit Diagnoses Not on filedocumented in this encounter Administered Medications Inactive Administered Medications - up to 3 most recent administrations Medication Order MAR Action Action Date Dose Rate Site fentaNYL (SUBLIMAZE) injection Intravenous, PRN, Starting on Mon07/17/19 at 1012, Until Mon07/17/19 at 1132, Anesthesia Intra-Op Given 07/17/2019 10:20 AM CDT 50 mcg Given 07/17/2019 10:12 AM CDT 50 mcg lactated ringers infusion Continuous PRN, Starting on Mon07/17/19 at 1012, Until Mon07/17/19 at 1132, Anesthesia Intra-Op New Bag 07/17/2019 10:12 AM CDT lidocaine (PF) (XYLOCAINE) 1 % injection Intravenous, PRN, Starting on Mon07/17/19 at 1018, Until Mon07/17/19 at 1132, Anesthesia Intra-Op Given 07/17/2019 10:18 AM CDT 50 mg midazolam (VERSED) injection PRN, Starting on Mon07/17/19 at 1012, Until Mon07/17/19 at 1132, Anesthesia Intra-Op Given 07/17/2019 10:20 AM CDT 1 m g Given 07/17/2019 10:12 AM CDT 1 mg propofol (DIPRIVAN) IV bolus Intravenous, Continuous PRN, Starting on Mon07/17/19 at 1018, Until Mon07/17/19 at 1132, Anesthesia Intra-Op New Bag 07/17/2019 10:18 AM CDT 75 mcg/kg/min 36.4 mL/hr sodium chloride 0.9% infusion at 10 mL/hr, Intravenous, Continuous, Starting on Mon07/17/19 at 0815, Until Chari 07/18/19 at 0814, Infuse at TKO rate New Bag 07/17/2019 11:04 AM CDT Transfuse RBC Routine, On Mon07/17/19 at 1054 New Bag 07/17/2019 11:04 AM CDT documented in this encounter Additional Health Concerns Infection Onset Date Last Indicated Resolved Time MRSA Comment:MRSA Blood Identified 06/28/2019 06/28/2019 07/01/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 07/08/2019 07/08/2019 documented as of this encounter Care Teams Registered Nurse First Assistant Relationship Specialty Start Date End Date Don Branham MD [address] [place] [address] PCP - General EMERGENCY MEDICINE 05/10/19 Damon Swanson MD INTERNAL MEDICINE 12/10/18 documented as of this encounter
--- OUTSIDE RECORDS SUMMARY | 2024-02-26 21:25 | XMS_ITS | Encounter Summary ---
Author Organization [facility] Address [address] [place] [address]. 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 No / Unsure 06/05/2019 1:53 PM CDT documented as of this encounter Functional Status * Question Answer Date of Assessment Author Status Do you have serious difficulty walking or climbing stairs? Yes 06/05/2019 6:50 PM CDT Erma Raya RN A ctive * Question Answer Date of Assessment Author Status Do you have difficulty dressing or bathing? Yes 06/05/2019 6:50 PM CDT Erma Raya RN Active Because of a physical, mental, or emotional condition, do you have difficulty doing errands alone such as visiting a doctor's office or shopping? Yes 06/05/2019 6:50 PM CDT Erma Raya RN Ac tive * RETIRED Are you deaf or do you have serious difficulty hearing Answer Date of Assessment Author Status No 06/05/2019 6:50 PM CDT Activ e * RETIRED Are you blind or do you have serious difficulty seeing, even when wearing glasses? Answer Date of Assessment Author Status No 06/05/2019 6:50 PM CDT Activ e * Do you have serious difficulty walking or climbing stairs? Answer Date of Assessment Author Status Yes 06/05/2019 6:50 PM CDT Erma Raya RN Active * Do you have difficulty dressing or bathing? Answer Date of Assessment Author Status Yes 06/05/2019 6:50 PM SHAT Erma Raya RN Active * Because of a physical, mental, or emotional condition, do you have difficulty doing errands alone such as visiting a doctor's office or shopping? Answer Date of Assessment Author Status Yes 06/05/2019 6:50 PM CDT Emra Raya RN Active documented as of this encounter Mental Status * Question Answer Entry Date Author Status Because of a physical, mental, or emotional condition, do you have serious difficulty concentrating, remembering, or making decisions? Yes 06/05/2019 6:50 PM SHAT Erma Raya RN Active * Because of a physical, mental, or emotional condition, do you have serious difficulty concentrating, remembering, or making decisions? Answer Entry Date Author Status Yes 06/05/2019 6:50 PM Erma Joseph RN Active documented in this encounter Plan of Treatment Not on file documented as of this encounter Visit Diagnoses Not on filedocumented in this encounter Care Teams Sand Shoveler Relationship Specialty Start Date End Date Don Branham MD [address] [place] [id number] PCP - General EMERGENCY MEDICINE 05/10/19 Damon Swanson MD INTERNAL MEDICINE 12/10/18 documented as of this encounter
--- OUTSIDE RECORDS SUMMARY | 2024-02-26 21:25 | XMS_ITS | Encounter Summary ---
Author Organization [facility] Address [address] [place] [address]. [place] [address] [place] [address] Care Team Providers Care Automation Qtp Tester Name Role Phone Annamaria Swanson MD Unavailable [phone] Don Branham MD Primary Care Provider [phone] Reason for Referral * (Routine) - Canceled Specialty Diagnoses / Procedures Referred By Leif hilton Referred To Contact Procedures PT eval and treat [facility] [place] [address] Phone: tel: fax: Referral ID Status Reason Start Date Expiration Date V isits Requested Visits Authorized [id number] Canceled 07/05/2019 08/03/2020 1 1 * Imaging (Urgent) - Closed Specialty Diagnoses / Procedures Referred By Leif hilton Referred To Contact RADIOLOGY Procedures USE TRANSESOPHAGEAL ECHO Sharon Ortez NP 1 [place] [address] Phone: tel: [phone] fax: Referral ID Status Reason Start Date Expiration Date Visits Re quested Visits Authorized [id number] Closed 07/06/2019 08/01/2020 1 1 * Imaging (Urgent) - Closed Specialty Diagnoses / Procedures Referred By Contac t Referred To Contact RADIOLOGY Procedures MRI ANKLE RT WO CON MRI FOOT RT WO CON [place] [address] Phone: tel: fax: Referral ID Status Reason Start Date Expiration Date Visits Re quested Visits Authorized [id number] Closed 07/01/2019 07/30/2020 1 1 * Imaging (Urgent) - Closed Specialty Diagnoses / Procedures Referred By Contac t Referred To Contact RADIOLOGY Procedures USE ECHOCARDIOGRAM W CON USE ECHOCARDIOGRAM [place] [address] Phone: tel: fax: Referral ID Status Reason Start Date Expiration Date Visits Re quested Visits Authorized [id number] Closed 06/28/2019 07/27/2020 1 1 * (Routine) - Canceled Specialty Diagnoses / Procedures Referred By Leif t Referred To Contact Procedures OT eval [place] [address] Phone: tel: fax: Referral ID Status Reason Start Date Expiration Date V isits Requested Visits Authorized [id number] Canceled 06/28/2019 07/27/2020 1 1 * (Routine) - Canceled Specialty Diagnoses / Procedures Referred By Leif t Referred To Contact Procedures PT eval [place] [address] Phone: tel: fax: Referral ID Status Reason Start Date Expiration Date V isits Requested Visits Authorized [id number] Canceled 06/28/2019 07/27/2020 1 1 * (Routine) - Closed Specialty Diagnoses / Procedures Referred By Contac t Referred To Contact Procedures Critical Care Amanda Moore MD [address] [address] Phone: tel: fax: Referral ID Status Reason Start Date Expiration Date Visits Re quested Visits Authorized [id number] Closed 06/28/2019 07/27/2020 1 1 * Imaging (Emergency) - Closed Specialty Diagnoses / Procedures Referred By Contac t Referred To Contact RADIOLOGY Procedures CT CERV SPINE WO CON Amanda Moore MD [address] [address] Phone: tel: fax: Referral ID Status Reason Start Date Expiration Date Visits Re quested Visits Authorized [id number] Closed 06/28/2019 07/27/2020 1 1 * Imaging (Emergency) - Closed Specialty Diagnoses / Procedures Referred By Contac t Referred To Contact RADIOLOGY Procedures CT HEAD WO CON Amanda Moore MD [address] [address] Phone: tel: fax: Referral ID Status Reason Start Date Expiration Date Visits Re quested Visits Authorized [id number] Closed 06/28/2019 07/27/2020 1 1 Reason for Visit * Reason Comments Fall Hyperglycemia * Auth/Cert Specialty Diagnoses / Procedures Referred By Contac t Referred To Contact Diagnoses Encephalopathy Elevated troponin Encephalopathy acute Encephalopathy acute Referral ID Status Reason Start Date Expiration Date Visits Re quested Visits Authorized [id number] 1 1 Encounter Details Date Type Department Care Team (Late st Contact Info) Description 06/28/2019 1:27 PM CDT - 07/09/2019 5:32 PM CDT Hospital Encounter [facility] [place] [address] Amanda Moore MD [address] [address] Savanna Ardon MD 1 [place] [address] [phone] (Work) Loraine Penaloza MD 1 [place] [address] [phone] (Work) Sharon Ortez NP 1 [facility] [place] [address] [phone] (Work) Lauren Bee NP 1 [place], [place] [id number] Fabiola Carter MD 1 [place] [address] [phone] (Work) Andres Khan APRN [place], [place] [address] Fall; Hyperglycemia Discharge Disposition: Swing Bed Social History Tobacco Use Types Packs/Day Years [...] have Coronavirus / COVID-19? No / Unsure 07/05/2019 12:47 PM CDT documented as of this encounter Last Filed Vital Signs Vital Sign Reading Time Taken Comments Blood Pressure 141/67 07/09/2019 10:57 AM CDT Pulse 71 07/09/2019 10:57 AM CDT Temperature 36.4 ??C (97.6 ??F) 07/09/2019 10:57 AM C DT Respiratory Rate 13 07/09/2019 10:57 AM CDT Oxygen Saturation 100% 07/09/2019 10:57 AM CDT Inhaled Oxygen Concentration - - Weight 78.2 kg (172 lb 6.4 oz) 07/09/2019 4:00 A M CDT Height 157.5 cm (5' 2 ) 06/28/2019 1:44 PM CDT Body Mass Index 31.53 06/28/2019 1:44 PM CDT documented in this encounter Functional Status * Question Answer Date of Assessment Author Status Do you have serious difficul ty walking or climbing stairs? Yes 06/29/2019 12:55 PM CDT Loree Chappell RN Active * Question Answer Date of Assessment Author Status Do you have difficulty dressing or bathing? Yes 06/29/2019 12:55 PM CDT Loree Chappell RN Ac tive Because of a physical, menta l, or emotional condition, do you have difficulty doing errands alone such as visiting a doctor's office or shopping? Yes 06/29/2019 12:55 PM CDT Loree Chappell RN Active * RETIRED Are you deaf or [...] Date Author Status Because of a physical, menta l, or emotional condition, do you have serious difficulty concentrating, remembering, or making decisions? Yes 06/29/2019 12:55 PM CDT Loree Chappell RN Activ e * Because of a physical, mental, or emotional condition, do you have serious difficulty concentrating, remembering, or making decisions? Answer Entry Date Author Status Yes 06/29/2019 12:55 PM CDLoree Larson RN Active documented in this encounter Discharge Summaries * Andres Khan APRN - 07/09/2019 2:15 PM CDT Hospitalist Discharge Summary Patient ID: Iris Gil. female. 1955. Admit date: 06/28/2019 1:27 PM Discharge date and time: 07/09/19 Admitting Physician: Savanna Ardon MD Attending Physician: Andres Khan APRN Primary Care Physician: Don Branham MD Discharge Physician: Andres Khan NP Hospital Diagnosis: Principal Problem: Bacteremia SNOMED CT(R): BACTEREMIA Active Problems: Encephalopathy acute SNOMED CT(R): DISORDER OF BRAIN Elevated troponin SNOMED CT(R): PROTEIN LEVEL - FINDING Essential hypertension SNOMED CT(R): ESSENTIAL HYPERTENSION Mixed hyperlipidemia SNOMED CT(R): MIXED HYPERLIPIDEMIA Admission Condition: poor Discharged Condition: Good Code Status: Full Code Indication for Admission: Chief Complaint Patient presents with ??? Fall ??? Hyperglycemia Readmission/Mortality Score at discharge: Low 0-28, Medium 29-58, High >59 LACE+ Score Readmission Score: 79 Male Patient: Urgent Admission: 15 Discharge Institution: Length of Stay: 9 Alternative Level of Care Status: 0 ED Visits in Previous 6 Months: 0 Elective Admission in Previous Year: 6 Comorbidity Score (by age & number of urgent admissions): 49 Hospital Course: Per H&P, Iris Gil is a 64-year-old female with past medical historysignificant for Type 2 Diabetes Mellitus, HTN and Hypothyroidism who was brought to the ED for evaluation after a fall while at her granddaughter's home. Upon arrival, Ms. Gil was found to be confused with elevated glucose of 570 in addition to an elevated Troponin level. Upon seeing the patient, she was found to be alert only to self with no c/o chest pain/ pressure nor SOB. She was also found to be hypothermic for which a Kain Hugger was placed. Ms. Gil was admitted with severe sepsis due to bacteremia and multiple infected skin ulcers. IDand vascular were consulted. She required 1 unit PRBC, no bleeding was found and hgb remains stableafter transfusion. Cardiology was consulted for elevated trop. Echo was done. Recommending stress test as an outpatient. She is also to follow up with wound clinic for her wounds. She is now medically stable for discharge to swing bed. She was accepted to [facility] for antibiotics through 07/16 and then will return back to [facility]. See below for details during hospitalization. Polymicrobial Bacteremia MRSA, E faecalis Suspect??2/2 multiple wounds ID consulted, appreciate recs On??vanc initially, follow renal function, pharmacy to dose TTE obtained Repeat blood cx reveal 1/2 bottles with VRE, follow with ID recs Latest blood cultures neg Now on dapto through 07/17/19 per ID STAR d/t continued bacteremia, no evidence of endocarditis PICC line today ?? PVD With nonhealing wounds to E [...] ultimately declined. SW consulted for SNF placement. Significant Diagnostic Studies: Recent Labs Lab 07/03/19 0751 07/04/19 0637 07/05/19 0525 07/06/19 1208 07/07/19 1048 07/08/19 0926 07/09/19 0720 WBC 7.2 5.8 6.9 7.2 7.4 7.7 6.5 RBC 1.91* 3.15* 3.20* 2.93* 2.76* 2.75* 3.02* HGB 5.6* 9.0* 9.3* 8.5* 8.0* 7.9* 8.7* HCT 17.7* 27.8* 28.7* 26.6* 24.9* 24.9* 27.2* MCV 92.7 88.3 89.7 90.8 90.2 90.5 90.1 MCH 29.3 28.6 29.1 29.0 29.0 28.7 28.8 MCHC 31.6* 32.4 32.4 32.0 32.1 31.7* 32.0 PLT 186 161 190 208 221 250 299 RDW 15.2* 17.0* 16.6* 17.0* 16.6* 16.4* 16.5* MPV 10.4 10.4 10.8 10.4 10.3 9.5 9.5 PERNEU 70.5 67.5 76.1 73.7 72.0 72.8 68.6 PERLYM 17.7 19.6 13.7 17.1 17.0 16.3 19.5 PERMON 8.6 9.7 7.3 6.5 8.0 7.1 8.0 LYMC 1.28 1.13 0.94* 1.23 1.25 1.26 1.27 MONOC 0.62 0.56 0.50 0.47 0.59 0.55 0.52 EOSC 0.16 0.14 0.15 0.14 0.12 0.17 0.17 BASOC 0.02 0.02 0.03 0.03 0.03 0.03 0.03 DTYPE AUTOMATED DIFFERENTIAL AUTOMATED DIFFERENTIAL AUTOMATED DIFFERENTIAL AUTOMATED DIFFERENTIAL AUTOMATED DIFFERENTIAL AUTOMATED DIFFERENTIAL AUTOMATED DIFFERENTIAL Recent Labs Lab 07/03/19 0751 07/04/19 0637 07/05/19 0525 07/06/19 1208 07/07/19 1048 07/08/19 0926 07/09/19 0720 NA 133* 136 135* 133* 136 135* 139 K 3.6 3.7 3.7 3.7 3.6 3.6 3.9 CL 99* 100 98* 98* 99* 98* 100 CO2 31.1 31.8 31.4 28.5 30.5 31.2 33.4* AGAP 2.9* 4.2* 5.6 6.5 6.5 5.8 5.6 BUN 15 13 15 15 15 18 15 CR 0.91 0.85 0.76 0.84 0.79 0.78 0.61 BUNCREATININ 16.4 15.2 19.8 17.9 19.1 23.0 24.8 GFRNON 67* 72* 83* 73* 79* 80* >90 GFR 77* 84* >90 85* >90 >90 >90 GLU 172* 137* 248* 251* 223* 197* 83 CA 8.7 8.9 8.7 8.2* 8.1* 8.2* 8.3* TP -- 7.0 -- -- -- -- -- ALB -- 2.2* -- -- -- -- -- TBIL -- 0.5 -- -- -- -- -- ALKP -- 40* -- -- -- -- -- AST -- 24 -- -- -- -- -- ALT -- 22 -- -- -- -- -- No results for input(s): CHOL, TRI, HDL, LDL, HGBA1C, TSH in the last 168 hours. Recent Labs Lab 07/05/19 0525 INR 1.1 PTT 33.1 Recent Labs Lab 07/04/19 2211 CPK 57 No results for input(s): LACTICACID, PROCT in the last 168 hours. No results for input(s): PH, PCO2, PO2, [id number], BICARBWB, BASEDEFICIT, BASEEXCESS in the [id number] hours. No results found for this or any previous visit. Radiology Reports : Radiology Results (Last 30 days) 07/08/19 4651 XR ABD KUB Final result Impression: IMPRESSION: 1) Constipation with at least moderate stool throughout the colon with redundancy and mild distention of the colon. 07/04/19 1415 USE TRANSESOPHAGEAL ECHO Final result 07/02/19 1528 MRI ANKLE RT WO CON Final result Impression: IMPRESSION: 1) Soft tissue ulceration involving the right heel with no evidence of soft tissue abscess. 2. No evidence of osteomyelitis. 06/30/19 1258 USE ECHOCARDIOGRAM W CON Final result 06/28/[address] HEAD WO CON Final result Impression: IMPRESSION: 1. No acute intracranial process identified. 2. Stable cortical atrophy and small vessel disease. 3. Left supraorbital scalp swelling. Interpreted By: Xavier Costa MD, 06/28/2019 3:35 PM 06/28/[address] CERV SPINE WO CON Final result Impression: IMPRESSION: 1. No acute traumatic injury identified. 2. Spondylosis as described. 3. Bilateral carotid atherosclerosis. Interpreted By: Xavier Costa MD, 06/28/2019 3:46 PM 06/28/19 1428 XR CHEST PORTABLE Final result Impression: =====IMPRESSION:===== 1. No acute infiltrate demonstrated. 2. Mild cardiomegaly. 3. Old healed granulomatous disease. 4. Suboptimal exam. Discharge Exam: Filed Vitals: 07/08/19 2300 07/09/19 0400 07/09/19 0741 07/09/19 1057 BP: (!) 153/51 121/78 116/46 141/67 Pulse: 77 70 66 71 Resp: 16 13 Temp: 98 ??F (36.7 ??C) 97.2 ??F (36.2 ??C) 97.5 ??F (36.4 ??C) 97.6 ??F (36.4 ??C) TempSrc: Oral Oral Oral Oral SpO2: 99% 99% 99% 100% Weight: 78.2 kg (172 lb 6.4 oz) Height: Physical Exam: -GENERAL: No acute distress, Well nourished -HEAD: Normocephalic, Atraumatic -EYES:??Extraocular movements intact -LUNGS:??Effort normal, clear breath sounds, no crackles or wheezes -CVS: RRR Abd: less distended today, Nontender -NEURO: Alert??oriented??to x3, No gross neuro deficits -SKIN: bandages to LLE CDI -PSYCH: Pleasant Discharge Medications: Medication List START taking these medications aspirin 325 MG tablet Take 1 tablet (325 mg total) by mouth daily. Start taking on: July 10, 2019 atorvastatin 40 MG tablet Commonly known as: LIPITOR Take 1 tablet (40 mg total) by mouth daily. Start taking on: July 10, 2019 collagenase ointment Commonly known as: SANTYL Apply topically daily for 10 days. Start taking on: July 10, 2019 insulin glargine 100 UNIT/ML injection (VIAL) Commonly known as: LANTUS Inject 15 Units into the skin nightly at bedtime. Replaces: insulin glargine 100 UNIT/ML injection (PEN) pantoprazole EC 40 MG tablet Commonly known as: PROTONIX Take 1 tablet (40 mg total) by mouth daily. sodium chloride 0.9 % SOLN 100 mL with DAPTOmycin 500 MG SOLR 625 mg Inject 625 mg into the vein daily. Through 07/16 CONTINUE taking these medications chlorthalidone 25 MG tablet Commonly known as: HYGROTEN Take 1 tablet (25 mg total) by mouth daily. gabapentin 300 MG capsule Commonly known as: NEURONTIN Take 1 capsule (300 mg total) by mouth 3 (three) times daily. levothyroxine 50 MCG tablet Commonly known as: SYNTHROID Take 1 tablet (50 mcg total) by mouth daily. STOP taking these medications insulin glargine 100 UNIT/ML injection (PEN) Commonly known as: Lantus SoloStar Replaced by: insulin glargine 100 UNIT/ML injection (VIAL) Where to Get Your Medications Information about where to get these medications is not yet available Ask your nurse or doctor about these medications ?? aspirin 325 MG tablet ?? atorvastatin 40 MG tablet ?? collagenase ointment ?? insulin glargine 100 UNIT/ML injection (VIAL) ?? pantoprazole EC 40 MG tablet ?? sodium chloride 0.9 % SOLN 100 mL with DAPTOmycin 500 MG SOLR 625 mg Disposition: SWB at [facility] Time Spent on Discharge >30 minutes Signed: ANDRES KHAN APRN Cosigned by Quiana Buenrostro MD at 07/10/2019 7:47 AM CDT documented in this encounter Medications at Time [...] for 10 days. 15 g 07/10/2019 0 sodium chloride 0.9 % SOLN 100 mL with DAPTOmycin 500 MG SOLR 625 mg Inject 625 mg into the vein daily. Through 07/16 1 ampule 07/09/2019 0 documented as of this encounter Progress Notes * Harlan Zuluaga LCSW - 07/09/2019 5:32 PM CDT Sw was able to reach pt's dtr,Celina,at 5:30Pm and confirmed d/c to [facility]. * Harlan Zuluaga LCSW - 07/09/2019 5:32 PM CDT 07/10/19 09 Discharge Planning Living Arrangements Family members Support Systems Children Type of Residence Private residence IV Infusion at discharge Yes Patient expects to be discharged to: (rehab ) The pt was d/c to [facility] by [facility] ambulance on 07/09/19 at 1732. * Tiffani Arellano RN - 07/09/2019 3:50 PM CDT Problem: Grooming Goal: STG - Pt will complete grooming tasks from a seated position with Description MIN A Outcome: Adequate for Discharge Problem: Feeding Goal: STG - Pt will feed self with Description MIN A Outcome: Adequate for Discharge Problem: Dressing: Upper Extremities Goal: STG - Pt will complete upper body dressing with Description MOD A Outcome: Adequate for Discharge Problem: Reduced risk for falls/injury Goal: Reduced Risk for Falls/Injury Outcome: Adequate for Discharge Problem: Mobility Goal: STG - Pt will ambulate Description 10-20' with 2ww and min/modA Outcome: Adequate for Discharge Problem: Transfers Goal: STG - Pt will perform stand pivot transfer Description Bed < > chair with 2ww and Rich Outcome: Adequate for Discharge Problem: Pain Goal: Patient's pain/discomfort is manageable Description Assess and monitor patient's pain using appropriate pain scale. Collaborate with interdisciplinary team and initiate plan and interventions as ordered. Re-assess patient's pain level 30 - 60 minutes after pain management intervention. Outcome: Adequate for Discharge Problem: Safety Goal: Patient will be injury free during hospitalization Description Assess and monitor vitals signs, neurological status including level of consciousness and orientation. Assess patient's risk for falls and implement fall prevention plan of care and interventions perhospital policy. Ensure arm band on, uncluttered walking paths in room, adequate room lighting, call light and overbed table within reach, bed in low position, wheels locked, side rails up per policy, and non-skid footwear provided. Outcome: Adequate for Discharge Problem: Daily Care Goal: Daily care needs are met Description Assess and monitor ability to perform self care and identify potential discharge needs. Outcome: Adequate for Discharge Problem: Psychosocial Needs Goal: Demonstrates ability to cope with hospitalization/illness Description Assess and monitor patients ability to cope with his/her illness. Outcome: Adequate for Discharge Goal: Collaborate with patient/family/caregiver to identify patient specific goals for this hospitalization Outcome: Adequate for Discharge Problem: Discharge Barriers Goal: Patient's discharge needs are met Description Collaborate with interdisciplinary team and initiate plans and interventions as needed. Outcome: Adequate for Discharge Problem: Infection - Risk of, Urinary Catheter-Associated Urinary Tract Infection Goal: Absence of infection signs and symptoms Outcome: Adequate for Discharge * Meche Alves PTA - 07/09/2019 12:52 PM CDT 07/09/19 1251 Therapy Visit Subjective Attempted to see pt for PT but pt getting ready to go [facility] for [facility] and dc afterwards per RN. * Andres Khan APRN - 07/09/2019 11:46 AM CDT Hospitalist Daily Progress Note Subjective Ms. Gil is resting in bed on exam. She is alert this morning. Still having occasional foot pain, today the right is worse than the left. She finally had BM yesterday and now having liquid stools. Objective Filed Vitals: 07/08/19 2300 07/09/19 0400 07/09/19 0741 07/09/19 1057 BP: (!) 153/51 121/78 116/46 141/67 Pulse: 77 70 66 71 Resp: 20 16 13 Temp: 98 ??F (36.7 ??C) 97.2 ??F (36.2 ??C) 97.5 ??F (36.4 ??C) 97.6 ??F (36.4 ??C) TempSrc: Oral Oral Oral Oral SpO2: 99% 99% 99% 100% Weight: 78.2 kg (172 lb 6.4 oz) Height: Physical Exam: -GENERAL: No acute distress, Well nourished -HEAD: Normocephalic, Atraumatic -EYES: Extraocular movements intact -LUNGS: Effort normal, clear breath sounds, no crackles or wheezes -CVS: RRR Abd: less distended today, Nontender -NEURO: Alert oriented to x3, No gross neuro deficits -SKIN: bandages to LLE CDI -PSYCH: Pleasant Intake/Output 24H Total: Intake/Output Summary (Last 24 hours) at 07/09/2019 1146 Last data filed at 07/09/2019 0917 Gross per 24 hour Intake 800 ml Output 1105 ml Net -305 ml Medication ??? aspirin 325 mg Oral Daily ??? atorvastatin 40 mg Oral Daily ??? collagenase Topical Daily ??? DAPTOmycin 10 mg/kg (Adjusted) Intravenous Q24H ??? insulin glargine 15 Units Subcutaneous Nightly at bedtime ??? insulin lispro 0-16 Units Subcutaneous TID AC And ??? insulin lispro 0-8 Units Subcutaneous Nightly at bedtime ??? insulin lispro 8 Units Subcutaneous TID WC ??? levothyroxine 75 mcg Oral Daily ??? pantoprazole 40 mg Intravenous BID ??? polyethylene glycol 17 g Oral Daily ??? senna-docusate 1 tablet Oral BID acetaminophen, dextrose, dextrose 10 % bolus, glucagon, nitroglycerin, ondansetron Labs: Recent Labs Lab 07/03/19 0751 07/04/19 0637 07/05/19 0525 07/06/19 1208 07/07/19 1048 07/08/19 0926 07/09/19 0720 WBC 7.2 5.8 6.9 7.2 7.4 7.7 6.5 RBC 1.91* 3.15* 3.20* 2.93* 2.76* 2.75* 3.02* HGB 5.6* 9.0* 9.3* 8.5* 8.0* 7.9* 8.7* HCT 17.7* 27.8* 28.7* 26.6* 24.9* 24.9* 27.2* MCV 92.7 88.3 89.7 90.8 90.2 90.5 90.1 MCH 29.3 28.6 29.1 29.0 29.0 28.7 28.8 MCHC 31.6* 32.4 32.4 32.0 32.1 31.7* 32.0 PLT 186 161 190 208 221 250 299 RDW 15.2* 17.0* 16.6* 17.0* 16.6* 16.4* 16.5* MPV 10.4 10.4 10.8 10.4 10.3 9.5 9.5 PERNEU 70.5 67.5 76.1 73.7 72.0 72.8 68.6 PERLYM 17.7 19.6 13.7 17.1 17.0 16.3 19.5 PERMON 8.6 9.7 7.3 6.5 8.0 7.1 8.0 LYMC 1.28 1.13 0.94* 1.23 1.25 1.26 1.27 MONOC 0.62 0.56 0.50 0.47 0.59 0.55 0.52 EOSC 0.16 0.14 0.15 0.14 0.12 0.17 0.17 BASOC 0.02 0.02 0.03 0.03 0.03 0.03 0.03 DTYPE AUTOMATED DIFFERENTIAL AUTOMATED DIFFERENTIAL AUTOMATED DIFFERENTIAL AUTOMATED DIFFERENTIAL AUTOMATED DIFFERENTIAL AUTOMATED DIFFERENTIAL AUTOMATED DIFFERENTIAL Recent Labs Lab 07/03/19 0751 07/04/19 0637 07/05/19 0525 07/06/19 1208 07/07/19 1048 07/08/19 0926 07/09/19 0720 NA 133* 136 135* 133* 136 135* 139 K 3.6 3.7 3.7 3.7 3.6 3.6 3.9 CL 99* 100 98* 98* 99* 98* 100 CO2 31.1 31.8 31.4 28.5 30.5 31.2 33.4* AGAP 2.9* 4.2* 5.6 6.5 6.5 5.8 5.6 BUN 15 13 15 15 15 18 15 CR 0.91 0.85 0.76 0.84 0.79 0.78 0.61 BUNCREATININ 16.4 15.2 19.8 17.9 19.1 23.0 24.8 GFRNON 67* 72* 83* 73* 79* 80* >90 GFR 77* 84* >90 85* >90 >90 >90 GLU 172* 137* 248* 251* 223* 197* 83 CA 8.7 8.9 8.7 8.2* 8.1* 8.2* 8.3* TP -- 7.0 -- -- -- -- -- ALB -- 2.2* -- -- -- -- -- TBIL -- 0.5 -- -- -- -- -- ALKP -- 40* -- -- -- -- -- AST -- 24 -- -- -- -- -- ALT -- 22 -- -- -- -- -- No results for input(s): CHOL, TRI, HDL, LDL, HGBA1C, TSH in the last 168 hours. Recent Labs Lab 07/05/19 0525 INR 1.1 PTT 33.1 Recent Labs Lab 07/04/19 2211 CPK 57 No results for input(s): LACTICACID, PROCT in the last 168 hours. No results for input(s): PH, PCO2, PO2, [id number], BICARBWB, BASEDEFICIT, BASEEXCESS in the [id number] hours. No results found for this or any previous visit. X-Ray Radiology Results (Last 30 days) 07/08/19 1651 XR ABD KUB Final result Impression: IMPRESSION: 1) Constipation with at least moderate stool throughout the colon with redundancy and mild distention of the colon. 07/04/19 1415 USE TRANSESOPHAGEAL ECHO Final result 07/02/19 1528 MRI ANKLE RT WO CON Final result Impression: IMPRESSION: 1) Soft tissue ulceration involving the right heel with no evidence of soft tissue abscess. 2. No evidence of osteomyelitis. 06/30/19 1258 USE ECHOCARDIOGRAM W CON Final result 06/28/[address] HEAD WO CON Final result Impression: IMPRESSION: 1. No acute intracranial process identified. 2. Stable cortical atrophy and small vessel disease. 3. Left supraorbital scalp swelling. Interpreted By: Xavier Costa MD, 06/28/2019 3:35 PM 06/28/[address] CERV SPINE WO CON Final result Impression: IMPRESSION: 1. No acute traumatic injury identified. 2. Spondylosis as described. 3. Bilateral carotid atherosclerosis. Interpreted By: Xavier Costa MD, 06/28/2019 3:46 PM 06/28/19 1428 XR CHEST PORTABLE Final result Impression: =====IMPRESSION:===== 1. No acute infiltrate demonstrated. 2. Mild cardiomegaly. 3. Old healed granulomatous disease. 4. Suboptimal exam. Assessment & Plan: Polymicrobial Bacteremia MRSA, E faecalis Suspect 2/2 multiple wounds ID consulted, appreciate recs On vanc initially, follow renal function, pharmacy to dose [...] CKD Iron studies and folate WNL Check guaiac, still pending Start PPI BID Transfuse 1u pRBC 07/02 Now improved, awaiting guaiac ?? Severe Sepsis without Shock : Resolved Patient was found to be hypothermic in the ED with temperature of 93.9F and hypotension (pressure 89/56 mmHg which improved with IVF). Vancomycin and Cefepime were initiated for broad coverage, Monitor Cr, vanc trough Transitioned to dapto as above Source: skin given multiple ulcers found on exam Blood cx 1/2 with MRSA and Enterococcus and MRSA, see above D/c IVF Monitor VS closely, hemodynamically stable ID consulted. Recs appreciated Repeat blood cx NGSF Vascular surgery consulted, appreciate recs ?? Acute [...] Doppler study ordered as likely metabolic encephalopathy Resolved ?? Elevated Troponin Initial Troponin level found to [...] Lantus given recurrent hypoglycemia despite Reduced dose. Patient's diet obviously much more restricted here than [...] Wound care c/s See media As above Constipation Abd distention noted on exam. Denies tenderness, nausea or vomiting. Suspect constipation. No BM charted. Start bowel regimen. KUB with moderate stool burden. ?? Resolved Obesity, BMI 31.21 ?? Hypothyroidism Increased levothyroxine Follow up with PCP and repeat labs in 4-6 weeks ?? ACP Full code Multiple admissions 2/2 noncompliance. SNF recommended last admission but patient and family ultimately declined. SW consulted for SNF placement. ? Disposition: Continue dapto through 07/16, Repeat BC neg. Working on SWB. Other changes to plan of care to be made based on progress during hospitalization. 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 They are agreeable with plan and voiced understanding. This note was dictated with [employer] medical dictation software; misspellings, punctuation errors, omitted words or dictation variances may occur. ANDRES KHAN APRN 07/09/2019 11:46 AM Cosigned by Quiana Buenrostro MD at 07/10/2019 7:47 AM CDT * Meche Alves, PRODUCT DEVELOPMENT ASSISTANT - 07/09/2019 11:03 AM CDT 07/09/19 1102 Therapy Visit Subjective Attmpted to see pt for PT but RN present to get ready to clean her up. Will check back later time today as able * Harlan Zuluaga LCSW - 07/09/2019 9:08 AM CDT This PRECIOUS contacted Katie at [facility] and informed her pt will continue on Dapto IV through 07/17/19.Flash will ask her team whether or not they can admit pt with the IV due to possible cost concerns.Await reply. Katie is supposed to meet with the dtr,Celina,this morning at 9AM to discuss finances. Katie informed Sw at 10AM they have to now decline admission based on cost of Dapto IV. PRECIOUS contacted pt's dtr,Celina,to confirm referrals to [facility] and [facility] which PRECIOUS completed. Await reply. [facility]. Precious informed pt's nurse,Merle,the name of contact at facility for report.Precious set a will call [facility] ambulance pick pack worker for later today.Precious checked with pt's nurse at 4:50Pm confirming the floor had called [facility] to pick pack worker and were waiting for arrival of ambulance.Precious attempted to reach pt's dtr,Celina,to confirm d/c today and her phone vm is full. * Venkat Pak RN - 07/09/2019 1:37 AM CDT Problem: Reduced risk for falls/injury Goal: Reduced Risk for Falls/Injury Outcome: Progressing Problem: Pain Goal: Patient's pain/discomfort is manageable Description Assess and monitor patient's pain using appropriate pain scale. Collaborate with interdisciplinary team and initiate plan and interventions as ordered. Re-assess patient's pain level 30 - 60 minutes after pain management intervention. Outcome: Progressing Problem: Safety Goal: Patient will be injury free during hospitalization Description Assess and monitor vitals signs, neurological status including level of consciousness and orientation. Assess patient's risk for falls and implement fall prevention plan of care and interventions perhospital policy. Ensure arm band on, uncluttered walking paths in room, adequate room lighting, call light and overbed table within reach, bed in low position, wheels locked, side rails up per policy, and non-skid footwear provided. Outcome: Progressing Problem: Daily Care Goal: Daily care needs are met Description Assess and monitor ability to perform self care and identify potential discharge needs. Outcome: Progressing * Harlan Zuluaga LCSW - 07/08/2019 5:23 PM CDT Per rounds,IV Dapto,continue through 07/10.Plan to d/c back to [facility] after that date. will follow up with facility about d/c plans. * Bud Weir MD - 07/08/2019 5:13 PM CDT Infectious Diseases Follow up Note Subjective: Patient seen and examined, no new events, feels better, denies any SOB, fever. Objective: Filed Vitals: 07/08/19 0326 07/08/19 0730 07/08/19 1114 07/08/19 1510 BP: 118/53 121/58 115/49 136/58 Pulse: 74 75 66 72 Resp: Temp: 98.2 ??F (36.8 ??C) 98 ??F (36.7 ??C) 97.8 ??F (36.6 ??C) 98.2 ??F (36.8 ??C) TempSrc: Oral Oral Oral Oral SpO2: 92% 99% 100% 98% Weight: 78.8 kg (173 lb 11.6 oz) Height: ROS: Denies any abdominal pain, no nausea, no SOB. All other systems were assessed and were negative forany symptoms. Physical exam: General physical exam not in any apparent distress. 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 Labs: Recent Labs Lab 07/06/19 1208 07/07/19 1048 07/08/19 0926 WBC 7.2 7.4 7.7 RBC 2.93* 2.76* 2.75* HGB 8.5* 8.0* 7.9* HCT 26.6* 24.9* 24.9* MCV 90.8 90.2 90.5 MCH 29.0 29.0 28.7 MCHC 32.0 32.1 31.7* PLT 208 221 250 RDW 17.0* 16.6* 16.4* MPV 10.4 10.3 9.5 PERNEU 73.7 72.0 72.8 PERLYM 17.1 17.0 16.3 PERMON 6.5 8.0 7.1 LYMC 1.23 1.25 1.26 MONOC 0.47 0.59 0.55 EOSC 0.14 0.12 0.17 BASOC 0.03 0.03 0.03 DTYPE AUTOMATED DIFFERENTIAL AUTOMATED DIFFERENTIAL AUTOMATED DIFFERENTIAL Recent Labs Lab 07/04/19 0637 07/06/19 1208 07/07/19 1048 07/08/19 0926 NA 136 < > 133* 136 135* K 3.7 < > 3.7 3.6 3.6 CL 100 < > 98* 99* 98* CO2 31.8 < > 28.5 30.5 31.2 AGAP 4.2* < > 6.5 6.5 5.8 BUN 13 < > 15 15 18 CR 0.85 < > 0.84 0.79 0.78 BUNCREATININ 15.2 < > 17.9 19.1 23.0 GFRNON 72* < > 73* 79* 80* GFR 84* < > 85* >90 >90 GLU 137* < > 251* 223* 197* CA 8.9 < > 8.2* 8.1* 8.2* TP 7.0 -- -- -- -- ALB 2.2* -- -- -- -- TBIL 0.5 -- -- -- -- ALKP 40* -- -- -- -- AST 24 -- -- -- -- ALT 22 -- -- -- -- < > = values in this interval not displayed. Invalid input(s): LACTATE, PROCALCITONIN Microbiology: Blood: Results for orders placed or performed during the hospital encounter of 06/28/19 (from the past 168hour(s)) CULTURE, BACTERIA, BLOOD Collection Time: 07/03/19 1:49 PM Result Value Ref Range Spec. Description BLOOD-PEDIATRIC VOLUME Special Requests: NO SPECIAL REQUEST Culture Result: NO GROWTH 5 DAYS CULTURE, BACTERIA, BLOOD Collection Time: 07/03/19 1:49 PM Result Value Ref Range Spec. Description BLOOD-PEDIATRIC VOLUME Special Requests: NO SPECIAL REQUEST Culture Result: NO GROWTH 5 DAYS Urine: No results found for this visit on 06/28/19 (from the past 168 hour(s)). Imagin D Echo reviewed from 05/01 Ct head reviewed. ? ASSESSMENT & PLAN: ?? Polymicrobial bacteremia: Blood cultures with MRSA, E faecalis (susceptible to Ampicillin), initially then VRE, Urine with NGin culture although UA with WBCs. ?? Source? Possible leg wounds. superficial had laceration from fall. No chest infiltrate. ?? MRI Left Tibia and Fibula 01/08 No Osteomyelitis. - 2D echo reviewed, DM type 2 ABDIRASHID, creatinine improved Hypothyroidism Multiple pressure ulcers ?? Today's updated plan: Repeat blood cultures 07/01 with VRE, switched to daptomycin. Repeated again 07/02 NGSF. STAR negative. Afebrile, WBC count 7.7 continue Daptomycin until july 16. Form in chart. Will sign off please call with questions. BUD WEIR MD 07/08/2019 * Marti Estrada RN - 07/08/2019 4:49 PM CDT Problem: Reduced risk for falls/injury Goal: Reduced Risk for Falls/Injury Outcome: Progressing Problem: Pain Goal: Patient's pain/discomfort is manageable Description Assess and monitor patient's pain using appropriate pain scale. Collaborate with interdisciplinary team and initiate plan and interventions as ordered. Re-assess patient's pain level 30 - 60 minutes after pain management intervention. Outcome: Progressing Problem: Safety Goal: Patient will be injury free during hospitalization Description Assess and monitor vitals signs, neurological status including level of consciousness and orientation. Assess patient's risk for falls and implement fall prevention plan of care and interventions perhospital policy. Ensure arm band on, uncluttered walking paths in room, adequate room lighting, call light and overbed table within reach, bed in low position, wheels locked, side rails up per policy, and non-skid footwear provided. Outcome: Progressing Problem: Daily Care Goal: Daily care needs are met Description Assess and monitor ability to perform self care and identify potential discharge needs. Outcome: Progressing * ONIEL Puentes - 07/08/2019 4:07 PM CDT 07/08/19 1606 Therapy Visit Reason for admission acute encephalopathy, elevated troponins Comorbidities Relevant to OT SEPSIS, DM, HTN, SCHIZOPHRENIA, HYPOTHERMC, BREAST CA Ordering Provider Duglas Subjective Subjective Room 440. Pt. with nursing/placing IV line; will follow up at later time/date for OT tx session as appropriate * Silvia Almonte PTA - 07/08/2019 3:20 PM CDT 07/08/19 1355 Therapy Visit Ordering Provider Duglas Subjective [id number]; Pt agreed to walk with therapy Reason for admission acute encephalopathy, elevated troponins Relevant Comorbidities/ Personal Factors to PT PMH: HTN, HLD, breast CA, DM2, schizophrenia, PVD, dementia Verified Two Patient Identifiers Yes Patient consents to therapy Yes Acute Inpatient PT Time Calculation PT Start Time 1355 PT Stop Time 1420 PT Time Calculation (min) 25 min Precautions Precautions Yes/No Yes General Precautions Bed Alarm;Chair Alarm;Fall Risk Instructed on Precautions Yes;Needs reinforcement and education Pain Pain Patient does not offer or c/o pain Activity Tolerance Endurance Tolerates 20 - 30 min activity with rests Cognition Overall Cognitive Status Impaired TRANSFERS Sit to Stand Min assist Other (Comment) Pt demonstrated fair balance with sit to stand and transfer with W. W with min assist Gait Gait Assistance Min assist Assistive Device 2 Wheeled walker Ambulation Distance (Feet) 7 feet x 2 sets Pattern Shuffle steps Other (Comment) Pt demonstrated fair tolerance with fair to intermittent poor balance with gait with W.W with min assist Balance Standing - Static Min Assist;Support of both upper extremities Standing - Dynamic Min Assist;Support of both upper extremities Exercises Sitting LE Exercise B LE's; ankle pumps, knee extension, marching, hip abd/add x 10-15 reps with rest breaks Patient/Family Training Bed Mobility x Transfer Training x Gait Training x Exercise Program x Recommendation PT Recommendation PT during Hospitalization;PT at [facility] Facility PT Equipment Recommended To Be Determined Plan PT Treatments/Interventions Gait Training;Therapeutic Exercises;Therapeutic Activities;Neuromuscular re-education Progress Slow progress, decreased activity tolerance PT Frequency Daily;BID;6 times/week PT plan for next session Continue on transfers, gait and balance If this is the last treatment note,it will serve as the discharge summary Yes End of Session Safety End of Session Safety Call light within reach Seat alarm activated * Andres Khan, MESSAGE BROKER DEVELOPER - 07/08/2019 2:59 PM CDT Hospitalist Daily Progress Note Subjective Ms. Gil is resting in bed on exam. She is sleepy, but awakes to voice. She is able to tell me her name, but falls asleep when asking where she sat. She endorses bilateral foot pain. She denies any shortness of breath or chest pain. Objective Filed Vitals: 07/08/19 0010 07/08/19 0326 07/08/19 0730 07/08/19 1114 BP: 121/54 118/53 121/58 115/49 Pulse: 75 74 75 66 Resp: Temp: 98.3 ??F (36.8 ??C) 98.2 ??F (36.8 ??C) 98 ??F (36.7 ??C) 97.8 ??F (36.6 ??C) TempSrc: Oral Oral Oral Oral SpO2: 96% 92% 99% 100% Weight: 78.8 kg (173 lb 11.6 oz) Height: Physical Exam: -GENERAL: No acute distress, Well nourished -HEAD: Normocephalic, Atraumatic -EYES: Extraocular movements intact -LUNGS: Effort normal, clear breath sounds, no crackles or wheezes -CVS: RRR Abd: distended, firm. Nontender -NEURO: Sleepy oriented to self, No gross neuro deficits, but difficult to assess with sleepiness -SKIN: bandages to LLE CDI -PSYCH: Sleepy Intake/Output 24H Total: Intake/Output Summary (Last 24 hours) at 07/08/2019 1459 Last data filed at 07/08/2019 0929 Gross per 24 hour Intake 360 ml Output 800 ml Net -440 ml Medication ??? aspirin 325 mg Oral Daily ??? atorvastatin 40 mg Oral Daily ??? collagenase Topical Daily ??? DAPTOmycin 10 mg/kg (Adjusted) Intravenous Q24H ??? insulin glargine 15 Units Subcutaneous Nightly at bedtime ??? insulin lispro 0-16 Units Subcutaneous TID AC And ??? insulin lispro 0-8 Units Subcutaneous Nightly at bedtime ??? insulin lispro 8 Units Subcutaneous TID WC ??? levothyroxine 75 mcg Oral Daily ??? pantoprazole 40 mg Intravenous BID acetaminophen, dextrose, dextrose 10 % bolus, glucagon, nitroglycerin, ondansetron, polyethylene glycol Labs: Recent Labs Lab 07/02/19 1128 07/03/19 0751 07/04/19 0637 07/05/19 0525 07/06/19 1208 07/07/19 1048 07/08/19 0926 WBC 7.2 7.2 5.8 6.9 7.2 7.4 7.7 RBC 2.69* 1.91* 3.15* 3.20* 2.93* 2.76* 2.75* HGB 7.9* 5.6* 9.0* 9.3* 8.5* 8.0* 7.9* HCT 24.7* 17.7* 27.8* 28.7* 26.6* 24.9* 24.9* MCV 91.8 92.7 88.3 89.7 90.8 90.2 90.5 MCH 29.4 29.3 28.6 29.1 29.0 29.0 28.7 MCHC 32.0 31.6* 32.4 32.4 32.0 32.1 31.7* PLT 168 186 161 190 208 221 250 RDW 15.5* 15.2* 17.0* 16.6* 17.0* 16.6* 16.4* MPV 10.4 10.4 10.4 10.8 10.4 10.3 9.5 PERNEU 78.9 70.5 67.5 76.1 73.7 72.0 72.8 PERLYM 11.7 17.7 19.6 13.7 17.1 17.0 16.3 PERMON 6.4 8.6 9.7 7.3 6.5 8.0 7.1 LYMC 0.84* 1.28 1.13 0.94* 1.23 1.25 1.26 MONOC 0.46 0.62 0.56 0.50 0.47 0.59 0.55 EOSC 0.15 0.16 0.14 0.15 0.14 0.12 0.17 BASOC 0.02 0.02 0.02 0.03 0.03 0.03 0.03 DTYPE AUTOMATED DIFFERENTIAL AUTOMATED DIFFERENTIAL AUTOMATED DIFFERENTIAL AUTOMATED DIFFERENTIAL AUTOMATED DIFFERENTIAL AUTOMATED DIFFERENTIAL AUTOMATED DIFFERENTIAL Recent Labs Lab 07/02/19 1128 07/03/19 0751 07/04/19 0637 07/05/19 0525 07/06/19 1208 07/07/19 1048 07/08/19 0926 NA 134* 133* 136 135* 133* 136 135* K 3.6 3.6 3.7 3.7 3.7 3.6 3.6 CL 97* 99* 100 98* 98* 99* 98* CO2 32.8* 31.1 31.8 31.4 28.5 30.5 31.2 AGAP 4.2* 2.9* 4.2* 5.6 6.5 6.5 5.8 BUN 16 15 13 15 15 15 18 CR 0.87 0.91 0.85 0.76 0.84 0.79 0.78 BUNCREATININ 18.4 16.4 15.2 19.8 17.9 19.1 23.0 GFRNON 70* 67* 72* 83* 73* 79* 80* GFR 82* 77* 84* >90 85* >90 >90 GLU 290* 172* 137* 248* 251* 223* 197* CA 8.7 8.7 8.9 8.7 8.2* 8.1* 8.2* TP -- -- 7.0 -- -- -- -- ALB -- -- 2.2* -- -- -- -- TBIL -- -- 0.5 -- -- -- -- ALKP -- -- 40* -- -- -- -- AST -- -- 24 -- -- -- -- ALT -- -- 22 -- -- -- -- No results for input(s): CHOL, TRI, HDL, LDL, HGBA1C, TSH in the last 168 hours. Recent Labs Lab 07/05/19 0525 INR 1.1 PTT 33.1 Recent Labs Lab 07/04/19 2211 CPK 57 No results for input(s): LACTICACID, PROCT in the last 168 hours. No results for input(s): PH, PCO2, PO2, [id number], BICARBWB, BASEDEFICIT, BASEEXCESS in the [id number] hours. No results found for this or any previous visit. X-Ray Radiology Results (Last 30 days) 07/04/19 1415 USE TRANSESOPHAGEAL ECHO Final result 07/02/19 1528 MRI ANKLE RT WO CON Final result Impression: IMPRESSION: 1) Soft tissue ulceration involving the right heel with no evidence of soft tissue abscess. 2. No evidence of osteomyelitis. 06/30/19 1258 USE ECHOCARDIOGRAM W CON Final result 06/28/[address] HEAD WO CON Final result Impression: IMPRESSION: 1. No acute intracranial process identified. 2. Stable cortical atrophy and small vessel disease. 3. Left supraorbital scalp swelling. Interpreted By: Xavier Costa MD, 06/28/2019 3:35 PM 06/28/[address] CERV SPINE WO CON Final result Impression: IMPRESSION: 1. No acute traumatic injury identified. 2. Spondylosis as described. 3. Bilateral carotid atherosclerosis. Interpreted By: Xavier Costa MD, 06/28/2019 3:46 PM 06/28/19 1428 XR CHEST PORTABLE Final result Impression: =====IMPRESSION:===== 1. No acute infiltrate demonstrated. 2. Mild cardiomegaly. 3. Old healed granulomatous disease. 4. Suboptimal exam. Assessment & Plan: Polymicrobial Bacteremia MRSA, E faecalis Suspect 2/2 multiple wounds ID consulted, appreciate recs On vanc initially, follow renal function, pharmacy to dose TTE obtained Repeat blood cx reveal 1/2 bottles with VRE, follow with ID recs Latest blood cultures NGSF Now on dapto (abx day 6/ total abx day 9) STAR d/t continued bacteremia, no evidence of endocarditis ?? PVD With nonhealing wounds to LLE Vascular consulted, appreciate recs LLE arteriogram 07/05/2019 F/u in wound clinic ?? Anemia Hgb 7.9 today Baseline appears to be near 9 Suspect 2/2 wounds, c/b component of underlying CKD Iron studies and folate WNL Check guaiac, still pending Start PPI BID Transfuse 1u pRBC 07/02 Now improved, awaiting guaiac ?? Severe Sepsis without Shock : Resolved Patient was found to be hypothermic in the ED with temperature of 93.9F and hypotension (pressure 89/56 mmHg which improved with IVF). Vancomycin and Cefepime were initiated for broad coverage, Monitor Cr, vanc trough Transitioned to dapto as above Source: skin given multiple ulcers found on exam Blood cx 1/2 with MRSA and Enterococcus and MRSA, see above D/c IVF Monitor VS closely, hemodynamically stable ID consulted. Recs appreciated Repeat blood cx NGSF Vascular surgery consulted, appreciate recs ?? Acute [...] Doppler study ordered as likely metabolic encephalopathy Resolved ?? Elevated Troponin Initial Troponin level found to [...] Lantus given recurrent hypoglycemia despite Reduced dose. Patient's diet obviously much more restricted here than [...] Wound care c/s See media As above Abdominal distention Noted on exam. Denies tenderness, nausea or vomiting. Suspect constipation. No BM charted. Start bowel regimen. KUB ordered. ?? Obesity, BMI 31.21 ?? Hypothyroidism Increased levothyroxine Follow up with PCP and repeat labs in 4-6 weeks ?? ACP Full code Multiple admissions 2/2 noncompliance. SNF recommended last admission but patient and family ultimately declined. SW consulted for SNF placement. ? Disposition: Continue dapto, follow latest blood cultures. Working on SNF placement. Other changes to plan of care to be made based on progress during hospitalization. 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 They are agreeable with plan and voiced understanding. This note was dictated with Dragon speak medical dictation software; misspellings, punctuation errors, omitted words or dictation variances may occur. ANDRES KHAN APRN 07/08/2019 2:59 PM Cosigned by Quiana Buenrostro MD at 07/08/2019 9:14 PM CDT * Venkat Pak RN - 07/08/2019 1:30 AM CDT Problem: Transfers Goal: STG - Pt will perform a bedside commode transfer with Description MOD A/LRD Outcome: Not Progressing Problem: Feeding Goal: STG - Pt will feed self with Description MIN A Outcome: Progressing Problem: Pain Goal: Patient's pain/discomfort is manageable Description Assess and monitor patient's pain using appropriate pain scale. Collaborate with interdisciplinary team and initiate plan and interventions as ordered. Re-assess patient's pain level 30 - 60 minutes after pain management intervention. Outcome: Progressing Problem: Safety Goal: Patient will be injury free during hospitalization Description Assess and monitor vitals signs, neurological status including level of consciousness and orientation. Assess patient's risk for falls and implement fall prevention plan of care and interventions perhospital policy. Ensure arm band on, uncluttered walking paths in room, adequate room lighting, call light and overbed table within reach, bed in low position, wheels locked, side rails up per policy, and non-skid footwear provided. Outcome: Progressing Problem: Daily Care Goal: Daily care needs are met Description Assess and monitor ability to perform self care and identify potential discharge needs. Outcome: Progressing * Marti Estrada RN - 07/07/2019 6:11 PM CDT Problem: Reduced risk for falls/injury Goal: Reduced Risk for Falls/Injury Outcome: Progressing Patient is on standard fall precautions with bed alarm on and call light in reach. Problem: Pain Goal: Patient's pain/discomfort is manageable Description Assess and monitor patient's pain using appropriate pain scale. Collaborate with interdisciplinary team and initiate plan and interventions as ordered. Re-assess patient's pain level 30 - 60 minutes after pain management intervention. Outcome: Progressing Patient denies pain at this time. Problem: Safety Goal: Patient will be injury free during hospitalization Description Assess and monitor vitals signs, neurological status including level of consciousness and orientation. Assess patient's risk for falls and implement fall prevention plan of care and interventions perhospital policy. Ensure arm band on, uncluttered walking paths in room, adequate room lighting, call light and overbed table within reach, bed in low position, wheels locked, side rails up per policy, and non-skid footwear provided. Outcome: Progressing Patient remains injury free this shift. Will continue to monitor. Problem: Daily Care Goal: Daily care needs are met Description Assess and monitor ability to perform self care and identify potential discharge needs. Outcome: Progressing Patient assisted with daily care needs. Problem: Psychosocial Needs Goal: Demonstrates ability to cope with hospitalization/illness Description Assess and monitor patients ability to cope with his/her illness. Outcome: Progressing Patient denies needs at this time. * Fabiola Carter MD - 07/07/2019 4:18 PM CDT Hospitalist Daily Progress Note Subjective Patient seen and evaluated earlier this morning. Patient denies any chest pain shortness of breath nausea vomiting abdominal pain fevers or chills. No other concerns at this time. Tolerating diet. Objective Filed Vitals: 07/07/19 0500 07/07/19 0634 07/07/19 0738 07/07/19 1100 BP: 96/53 135/78 123/47 120/60 Pulse: 83 73 78 Resp: 20 20 20 Temp: 98.5 ??F (36.9 ??C) 98.2 ??F (36.8 ??C) 98 ??F (36.7 ??C) TempSrc: Oral Oral Oral SpO2: 100% 100% 100% Weight: 83.8 kg (184 lb 11.9 oz) Height: Physical Exam: -GENERAL: No acute distress, Well nourished -HEAD: Normocephalic, Atraumatic -EYES: Extraocular movements intact -LUNGS: Effort normal, clear breath sounds, no crackles or wheezes -CVS: RRR -NEURO: Awake, alert, oriented to self and time, No gross neuro deficits -SKIN: bandages to LLE CDI -PSYCH: pleasant and cooperative Intake/Output 24H Total: Intake/Output Summary (Last 24 hours) at 07/07/2019 1618 Last data filed at 07/07/2019 0844 Gross per 24 hour Intake 750 ml Output 1050 ml Net -300 ml Medication ??? aspirin 325 mg Oral Daily ??? atorvastatin 40 mg Oral Daily ??? collagenase Topical Daily ??? DAPTOmycin 10 mg/kg (Adjusted) Intravenous Q24H ??? insulin glargine 15 Units Subcutaneous Nightly at bedtime ??? insulin lispro 0-16 Units Subcutaneous TID AC And ??? insulin lispro 0-8 Units Subcutaneous Nightly at bedtime ??? insulin lispro 8 Units Subcutaneous TID WC ??? levothyroxine 75 mcg Oral Daily ??? pantoprazole 40 mg Intravenous BID acetaminophen, dextrose, dextrose 10 % bolus, glucagon, nitroglycerin, ondansetron, polyethylene glycol Labs: Recent Labs Lab 07/01/19 0951 07/02/19 1128 07/03/19 0751 07/04/19 0637 07/05/19 0525 07/06/19 1208 07/07/19 1048 WBC 7.8 7.2 7.2 5.8 6.9 7.2 7.4 RBC 2.95* 2.69* 1.91* 3.15* 3.20* 2.93* 2.76* HGB 8.7* 7.9* 5.6* 9.0* 9.3* 8.5* 8.0* HCT 26.9* 24.7* 17.7* 27.8* 28.7* 26.6* 24.9* MCV 91.2 91.8 92.7 88.3 89.7 90.8 90.2 MCH 29.5 29.4 29.3 28.6 29.1 29.0 29.0 MCHC 32.3 32.0 31.6* 32.4 32.4 32.0 32.1 PLT 191 168 186 161 190 208 221 RDW 15.4* 15.5* 15.2* 17.0* 16.6* 17.0* 16.6* MPV 10.2 10.4 10.4 10.4 10.8 10.4 10.3 PERNEU 77.8 78.9 70.5 67.5 76.1 73.7 72.0 PERLYM 13.6 11.7 17.7 19.6 13.7 17.1 17.0 PERMON 5.5 6.4 8.6 9.7 7.3 6.5 8.0 LYMC 1.06 0.84* 1.28 1.13 0.94* 1.23 1.25 MONOC 0.43 0.46 0.62 0.56 0.50 0.47 0.59 EOSC 0.12 0.15 0.16 0.14 0.15 0.14 0.12 BASOC 0.03 0.02 0.02 0.02 0.03 0.03 0.03 DTYPE AUTOMATED DIFFERENTIAL AUTOMATED DIFFERENTIAL AUTOMATED DIFFERENTIAL AUTOMATED DIFFERENTIAL AUTOMATED DIFFERENTIAL AUTOMATED DIFFERENTIAL AUTOMATED DIFFERENTIAL Recent Labs Lab 07/01/19 0951 07/02/19 1128 07/03/19 0751 07/04/19 0637 07/05/19 0525 07/06/19 1208 07/07/19 1048 NA 136 134* 133* 136 135* 133* 136 K 3.7 3.6 3.6 3.7 3.7 3.7 3.6 CL 99* 97* 99* 100 98* 98* 99* CO2 31.5 32.8* 31.1 31.8 31.4 28.5 30.5 AGAP 5.5 4.2* 2.9* 4.2* 5.6 6.5 6.5 BUN 20* 16 15 13 15 15 15 CR 0.95 0.87 0.91 0.85 0.76 0.84 0.79 BUNCREATININ 21.1 18.4 16.4 15.2 19.8 17.9 19.1 GFRNON 63* 70* 67* 72* 83* 73* 79* GFR 73* 82* 77* 84* >90 85* >90 GLU 93 290* 172* 137* 248* 251* 223* CA 8.9 8.7 8.7 8.9 8.7 8.2* 8.1* TP -- -- -- 7.0 -- -- -- ALB -- -- -- 2.2* -- -- -- TBIL -- -- -- 0.5 -- -- -- ALKP -- -- -- 40* -- -- -- AST -- -- -- 24 -- -- -- ALT -- -- -- 22 -- -- -- No results for input(s): CHOL, TRI, HDL, LDL, HGBA1C, TSH in the last 168 hours. Recent Labs Lab 07/05/19 0525 INR 1.1 PTT 33.1 Recent Labs Lab 07/04/19 2211 CPK 57 No results for input(s): LACTICACID, PROCT in the last 168 hours. No results for input(s): PH, PCO2, PO2, [id number], BICARBWB, BASEDEFICIT, BASEEXCESS in the [id number] hours. No results found for this or any previous visit. X-Ray Radiology Results (Last 30 days) 07/04/19 1415 USE TRANSESOPHAGEAL ECHO Final result 07/02/19 1528 MRI ANKLE RT WO CON Final result Impression: IMPRESSION: 1) Soft tissue ulceration involving the right heel with no evidence of soft tissue abscess. 2. No evidence of osteomyelitis. 06/30/19 1258 USE ECHOCARDIOGRAM W CON Final result 06/28/[address] HEAD WO CON Final result Impression: IMPRESSION: 1. No acute intracranial process identified. 2. Stable cortical atrophy and small vessel disease. 3. Left supraorbital scalp swelling. Interpreted By: Xavier Costa MD, 06/28/2019 3:35 PM 06/28/[address] CERV SPINE WO CON Final result Impression: IMPRESSION: 1. No acute traumatic injury identified. 2. Spondylosis as described. 3. Bilateral carotid atherosclerosis. Interpreted By: Xavier Costa MD, 06/28/2019 3:46 PM 06/28/19 1428 XR CHEST PORTABLE Final result Impression: =====IMPRESSION:===== 1. No acute infiltrate demonstrated. 2. Mild cardiomegaly. 3. Old healed granulomatous disease. 4. Suboptimal exam. Assessment & Plan: Polymicrobial Bacteremia MRSA, E faecalis Suspect 2/2 multiple wounds ID consulted, appreciate recs On vanc initially, follow renal function, pharmacy to dose TTE obtained Repeat blood cx reveal 1/2 bottles with VRE, follow with ID recs Latest blood cultures NGSF Now on dapto (abx day 5/ total abx day 9) STAR d/t continued bacteremia, no evidence of endocarditis ?? PVD With nonhealing wounds to LLE Vascular consulted, appreciate recs LLE arteriogram 07/05/2019 ?? Anemia Hgb 8.0 today Baseline appears to be near 9 Suspect 2/2 wounds, c/b component of underlying CKD Iron studies and folate WNL Check guaiac, still pending Start PPI BID Transfuse 1u pRBC 07/02 Now improved, awaiting guaiac ?? Severe Sepsis without Shock : Improving Patient was found to be hypothermic in the ED with temperature of 93.9F and hypotension (pressure 89/56 mmHg which improved with IVF). Vancomycin and Cefepime were initiated for broad coverage, Monitor Cr, vanc trough Transitioned to dapto as above Source: skin given multiple ulcers found on exam Blood cx 1/2 with MRSA and Enterococcus and MRSA, see below D/c IVF Monitor VS closely, hemodynamically stable ID consulted. Recs appreciated Repeat blood cx NGSF Vascular surgery consulted, appreciate recs ?? Acute [...] Doppler study ordered as likely metabolic encephalopathy Resolved ?? Elevated Troponin Initial Troponin level found to [...] Lantus given recurrent hypoglycemia despite Reduced dose. Patient's diet obviously much more restricted here than [...] care c/s See media As above ?? Obesity, BMI 31.21 ?? Hypothyroidism Increased levothyroxine Follow up with PCP and repeat labs in 4-6 weeks ?? ACP Full code Multiple admissions 2/2 noncompliance. SNF recommended last admission but patient and family ultimately declined. SW consulted for SNF placement. ? Disposition: Continue dapto, follow latest blood cultures. Working on SNF placement. Other changes to plan of care to be made based on progress during hospitalization. 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 They are agreeable with plan and voiced understanding. This note was dictated with [employer] medical dictation software; misspellings, punctuation errors, omitted words or dictation variances may occur. Fabiola Carter MD 07/07/2019 4:19 PM * Khalif Guy MD - 07/07/2019 3:56 PM CDT Images from the original note were not included. Iris Gil is a 64-year-old female Subjective: No complaints. Bacteremia Current Facility-Administered Medications Medication Dose Route Frequency Provider Last Rate Last Dose ??? acetaminophen (TYLENOL) tablet 650 mg 650 mg Oral Q4H PRN Khalif Guy MD ??? aspirin tablet 325 mg 325 mg Oral Daily Khalif Guy MD 325 mg at 07/07/19 0838 ??? atorvastatin (LIPITOR) tablet 40 mg 40 mg Oral Daily Khalif Guy MD 40 mg at 07/07/19837 ??? collagenase (SANTYL) ointment Topical Daily Khalif Guy MD ??? DAPTOmycin (CUBICIN) 600 mg in sodium chloride 0.9 % 100 mL IVPB 10 mg/kg (Adjusted) Intravenous Q24H Khalif Guy MD 200 mL/hr at 07/07/19 1511 600 mg at 07/07/19 1511 ??? dextrose (GLUTOSE) 40 % oral gel 15-30 g 15-30 g Oral PRN Khalif Guy MD 30 g at 07/01/19 1546 ??? dextrose 10 % bolus infusion 125-250 mL 125-250 mL Intravenous PRN Khalif Guy MD ??? glucagon injection 1 mg 1 mg Intramuscular Once PRN Khalif Guy MD ??? insulin glargine (LANTUS) injection 15 Units 15 Units Subcutaneous Nightly at bedtime Lauren Bee NP ??? insulin lispro (HUMALOG) injection 0-16 Units 0-16 Units Subcutaneous TID Khalif Guy MD Stopped at 07/07/19 1224 And ??? insulin lispro (HUMALOG) injection 0-8 Units 0-8 Units Subcutaneous Nightly at bedtime Khalif Hdz MD 4 Units at 07/04/19 2238 ??? insulin lispro (HUMALOG) injection 8 Units 8 Units Subcutaneous TID Lauren Bee NP 8 Units at 07/07/19 1224 ??? levothyroxine (SYNTHROID) tablet 75 mcg 75 mcg Oral Daily Khalif Guy MD 75 mcg at 07/07/19 0634 ??? nitroglycerin (NITROSTAT) SL tablet 0.4 mg 0.4 mg Sublingual Q5 Min PRN Khalif Guy MD ??? ondansetron (ZOFRAN) injection 4 mg 4 mg Intravenous Q8H PRN Khalif Guy MD ??? pantoprazole (PROTONIX) injection 40 mg 40 mg Intravenous BID Khalif Guy MD 40 mg at 07/07/19 0838 ??? polyethylene glycol (GLYCOLAX) packet 17 g 17 g Oral Daily PRN Khalif Guy MD Allergies Allergen Reactions ??? Codeine Nausea and Vomiting Review of Systems Constitutional: Negative. HENT: Negative. Respiratory: Negative. Cardiovascular: Negative. Gastrointestinal: Negative. Genitourinary: Negative. Skin: Positive for wound. Objective: I/O last 3 completed shifts: In: 750 [P.O.:750] Out: 1050 [Urine:1050] Blood pressure 120/60, pulse 78, temperature 98 ??F (36.7 ??C), temperature source Oral, resp. rate20, height 5' 2 (1.575 m), weight 83.8 kg (184 lb 11.9 oz), SpO2 100 %. Physical Exam Constitutional: No distress. HENT: Head: Normocephalic and atraumatic. Eyes: Conjunctivae are normal. No scleral icterus. Neck: Neck supple. Cardiovascular: Normal rate. Pulmonary/Chest: Effort normal. Neurological: She is alert. Skin: She is not diaphoretic. Lab Results Component Value Date NA 136 07/07/2019 K 3.6 07/07/2019 CL 99 (L) 07/07/2019 CO2 30.5 07/07/2019 AGAP 6.5 07/07/2019 BUN 15 07/07/2019 CR 0.79 07/07/2019 BUNCREATININ 19.1 07/07/2019 GFRNON 79 (L) 07/07/2019 GFR >90 07/07/2019 GLU 223 (H) 07/07/2019 CA 8.1 (L) 07/07/2019 Lab Results Component Value Date WBC 7.4 07/07/2019 HGB 8.0 (L) 07/07/2019 PLT 221 07/07/2019 Lab Results Component Value Date CHOL 201 (H) 06/29/2019 TRI 123 06/29/2019 HDL 84 06/29/2019 TP 7.0 07/04/2019 ALB 2.2 (L) 07/04/2019 ALT 22 07/04/2019 HGBA1C 11.4 (H) 05/08/2019 TSH 20.700 (H) 06/29/2019 Principal Problem: Bacteremia SNOMED CT(R): BACTEREMIA Active Problems: Encephalopathy acute SNOMED CT(R): DISORDER OF BRAIN Elevated troponin SNOMED CT(R): PROTEIN LEVEL - FINDING Essential hypertension SNOMED CT(R): ESSENTIAL HYPERTENSION Mixed hyperlipidemia SNOMED CT(R): MIXED HYPERLIPIDEMIA Plan: Dressing changes. Follow up with wound clinic. KHALIF GUY MD 07/07/2019 * Edilson Morgan MD - 07/07/2019 1:40 PM CDT Cc +BC. No complaints. Afebrile. Scaling of foot on left, ulcers posterior calf are clean. WBC normal. BCs 07/02 ngsf IMP Polymicrobial septicemia, better REC Same dapto and f/u. * Marti Estrada RN - 07/06/2019 3:49 PM CDT Problem: Reduced risk for falls/injury Goal: Reduced Risk for Falls/Injury Outcome: Progressing Patient is on standard fall precautions with call light in reach and bed alarm on. Problem: Pain Goal: Patient's pain/discomfort is manageable Description Assess and monitor patient's pain using appropriate pain scale. Collaborate with interdisciplinary team and initiate plan and interventions as ordered. Re- assess patient's pain level 30 - 60 minutes after pain management intervention. Outcome: Progressing Patient denies pain at this time. Problem: Safety Goal: Patient will be injury free during hospitalization Description Assess and monitor vitals signs, neurological status including level of consciousness and orientation. Assess patient's risk for falls and implement fall prevention plan of care and interventions perhospital policy. Ensure arm band on, uncluttered walking paths in room, adequate room lighting, call light and overbed table within reach, bed in low position, wheels locked, side rails up per policy, and non-skid footwear provided. Outcome: Progressing Patient remains injury free this shift. Problem: Daily Care Goal: Daily care needs are met Description Assess and monitor ability to perform self care and identify potential discharge needs. Outcome: Progressing Patient assisted with daily care needs. * Meche Alves PTA - 07/06/2019 12:36 PM CDT 07/06/19 1230 Therapy Visit Ordering Provider Duglas PT Received On 07/06/19 Subjective Per RN ok to get pt up to chair Reason for admission acute encephalopathy, elevated troponins Relevant Comorbidities/ Personal Factors to PT PMH: HTN, HLD, breast CA, DM2, schizophrenia, PVD, dementia Verified Two Patient Identifiers Yes Patient consents to therapy Yes Acute Inpatient PT Time Calculation PT Start Time 1210 PT Stop Time 1230 PT Time Calculation (min) 20 min Precautions Precautions Yes/No Yes General Precautions Bed Alarm;Chair Alarm;Fall Risk Instructed on Precautions Yes;Needs reinforcement and education Pain Pain Patient does not offer or c/o pain Activity Tolerance Endurance Tolerates 10 - 20 min activity with rests Activity Tolerance Comments fair. Pt complains bottom being sore. Pt was able to stand better this session and take a steps to chair. Cognition Overall Cognitive Status Impaired Orientation Level Oriented to place;Oriented to person;Oriented to situation Following Commands Follows one step commands with repetition Safety Judgment Decreased awareness of need for safety Bed Mobility Supine to Sit Max assist to right TRANSFERS Stand Pivot Transfers Mod assist Sit to Stand Mod assist Bed to Chair Mod assist Balance Standing - Static Mod Assist Standing - Dynamic Mod Assist Patient/Family Training Bed Mobility x Transfer Training x Recommendation PT Recommendation PT during Hospitalization;PT at [facility] Facility PT Equipment Recommended To Be Determined Plan PT Treatments/Interventions Gait Training;Therapeutic Exercises;Therapeutic Activities;Neuromuscular re-education Progress Slow progress, decreased activity tolerance PT Frequency Daily;BID;6 times/week If this is the last treatment note,it will serve as the discharge summary Yes End of Session Safety End of Session Safety Chair alarm set/activated;Call light within reach;Nursing aware of session * Khalif Guy MD - 07/06/2019 10:22 AM CDT Images from the original note were not included. Iris Gil is a 64-year-old female Subjective: Minimal leg discomfort. No pain at access site. Denies shortness of breath or chest pain. Bacteremia Current Facility-Administered Medications Medication Dose Route Frequency Provider Last Rate Last Dose ??? acetaminophen (TYLENOL) tablet 650 mg 650 mg Oral Q4H PRN Khalif Guy MD ??? aspirin tablet 325 mg 325 mg Oral Daily Khalif Guy MD 325 mg at 07/06/19829 ??? atorvastatin (LIPITOR) tablet 40 mg 40 mg Oral Daily Khalif Guy MD 40 mg at 04/25/20 0830 ??? collagenase (SANTYL) ointment Topical Daily Khalif Guy MD ??? DAPTOmycin (CUBICIN) 600 mg in sodium chloride 0.9 % 100 mL IVPB 10 mg/kg (Adjusted) Intravenous Q24H Khalif Guy MD Stopped at 07/05/19 1629 ??? dextrose (GLUTOSE) 40 % oral gel 15-30 g 15-30 g Oral PRN Khalif Guy MD 30 g at 07/01/19 1546 ??? dextrose 10 % bolus infusion 125-250 mL 125-250 mL Intravenous PRN Khalif Guy MD ??? glucagon injection 1 mg 1 mg Intramuscular Once PRN Khalif Guy MD ??? insulin glargine (LANTUS) injection 8 Units 8 Units Subcutaneous Nightly at bedtime Khalif Guy MD 8 Units at 07/05/19 2226 ??? insulin lispro (HUMALOG) injection 0-16 Units 0-16 Units Subcutaneous TID AC Khalif Guy MD 6Units at 07/06/19 0830 And ??? insulin lispro (HUMALOG) injection 0-8 Units 0-8 Units Subcutaneous Nightly at bedtime Khalif Hdz MD 4 Units at 07/04/19 2238 ??? insulin lispro (HUMALOG) injection 5 Units 5 Units Subcutaneous TID Khalif Guy MD 5 Unitsat 07/06/19 0831 ??? levothyroxine (SYNTHROID) tablet 75 mcg 75 mcg Oral Daily Khalif Guy MD 75 mcg at 07/06/19 0648 ??? nitroglycerin (NITROSTAT) SL tablet 0.4 mg 0.4 mg Sublingual Q5 Min PRN Khalif Guy MD ??? ondansetron (ZOFRAN) injection 4 mg 4 mg Intravenous Q8H PRN Khalif Guy MD ??? pantoprazole (PROTONIX) injection 40 mg 40 mg Intravenous BID Khalif Guy MD 40 mg at 07/06/19 0830 ??? polyethylene glycol (GLYCOLAX) packet 17 g 17 g Oral Daily PRN Khalif Guy MD Allergies Allergen Reactions ??? Codeine Nausea and Vomiting Review of Systems Constitutional: Negative. Respiratory: Negative. Cardiovascular: Negative. Gastrointestinal: Negative. Skin: Positive for wound. Objective: I/O last 3 completed shifts: In: 405 [P.O.:405] Out: 650 [Urine:650] Blood pressure 123/68, pulse 76, temperature 98.4 ??F (36.9 ??C), temperature source Oral, resp. rate 22, height 5' 2 (1.575 m), weight 83.2 kg (183 lb 6.8 oz), SpO2 97 %. Physical Exam Constitutional: No distress. HENT: Head: Normocephalic. Cardiovascular: Normal rate. Pulmonary/Chest: Effort normal. Skin: Skin is dry. She is not diaphoretic. Lab Results Component Value Date NA 135 (L) 07/05/2019 K 3.7 07/05/2019 CL 98 (L) 07/05/2019 CO2 31.4 07/05/2019 AGAP 5.6 07/05/2019 BUN 15 07/05/2019 CR 0.76 07/05/2019 BUNCREATININ 19.8 07/05/2019 GFRNON 83 (L) 07/05/2019 GFR >90 07/05/2019 GLU 248 (H) 07/05/2019 CA 8.7 07/05/2019 Lab Results Component Value Date WBC 6.9 07/05/2019 HGB 9.3 (L) 07/05/2019 PLT 190 07/05/2019 Lab Results Component Value Date CHOL 201 (H) 06/29/2019 TRI 123 06/29/2019 HDL 84 06/29/2019 TP 7.0 07/04/2019 ALB 2.2 (L) 07/04/2019 ALT 22 07/04/2019 HGBA1C 11.4 (H) 05/08/2019 TSH 20.700 (H) 06/29/2019 Principal Problem: Bacteremia SNOMED CT(R): BACTEREMIA Active Problems: Encephalopathy acute SNOMED CT(R): DISORDER OF BRAIN Elevated troponin SNOMED CT(R): PROTEIN LEVEL - FINDING Essential hypertension SNOMED CT(R): ESSENTIAL HYPERTENSION Mixed hyperlipidemia SNOMED CT(R): MIXED HYPERLIPIDEMIA Plan: Dressing changes. Ambulate as tolerated. KHALIF GUY MD 07/06/2019 * Lauren Bee NP - 07/06/2019 10:15 AM CDT Hospitalist Daily Progress Note Subjective Ms Gil is resting in bed when evaluated. She tells me she feels well. No chest pain, or shortness of breath. No nausea or vomiting. Latest blood cultures still NGSF. Arteriogram per vascular yesterday. Continues on dapto. Labs still pending at 1020. Objective Filed Vitals: 07/05/19 1931 07/05/19 2332 07/06/19 0322 07/06/19 0752 BP: 144/68 125/59 128/58 123/68 Pulse: 81 78 79 76 Resp: Temp: 98.1 ??F (36.7 ??C) 97.7 ??F (36.5 ??C) 98.1 ??F (36.7 ??C) 98.4 ??F (36.9 ??C) TempSrc: Oral Axillary Axillary Oral SpO2: 100% 99% 96% 97% Weight: 83.2 kg (183 lb 6.8 oz) Height: Intake/Output 24H Total: Intake/Output Summary (Last 24 hours) at 07/06/2019 1015 Last data filed at 07/05/2019 1745 Gross per 24 hour Intake 405 ml Output -- Net 405 ml Physical Exam: -GENERAL: No acute distress, Well nourished -HEAD: Normocephalic, Atraumatic -EYES: Extraocular movements intact -LUNGS: Effort normal, clear breath sounds, no crackles or wheezes -CVS: RRR -NEURO: Awake, alert, oriented to self and time, No gross neuro deficits -SKIN: bandages to LLE CDI -PSYCH: pleasant and cooperative Medications ??? aspirin 325 mg Oral Daily ??? atorvastatin 40 mg Oral Daily ??? collagenase Topical Daily ??? DAPTOmycin 10 mg/kg (Adjusted) Intravenous Q24H ??? insulin glargine 8 Units Subcutaneous Nightly at bedtime ??? insulin lispro 0-16 Units Subcutaneous TID AC And ??? insulin lispro 0-8 Units Subcutaneous Nightly at bedtime ??? insulin lispro 5 Units Subcutaneous TID WC ??? levothyroxine 75 mcg Oral Daily ??? pantoprazole 40 mg Intravenous BID acetaminophen, dextrose, dextrose 10 % bolus, glucagon, nitroglycerin, ondansetron, polyethylene glycol Labs, Imaging, Other Studies Recent Labs Lab 06/29/19 1352 06/30/19 0645 07/01/19 0951 07/02/19 1128 07/03/19 0751 07/04/19 0637 07/05/19 0525 WBC 7.8 8.3 7.8 7.2 7.2 5.8 6.9 RBC 3.04* 2.81* 2.95* 2.69* 1.91* 3.15* 3.20* HGB 9.0* 8.3* 8.7* 7.9* 5.6* 9.0* 9.3* HCT 27.5* 25.5* 26.9* 24.7* 17.7* 27.8* 28.7* MCV 90.5 90.7 91.2 91.8 92.7 88.3 89.7 MCH 29.6 29.5 29.5 29.4 29.3 28.6 29.1 MCHC 32.7 32.5 32.3 32.0 31.6* 32.4 32.4 PLT 220 213 191 168 186 161 190 RDW 15.1* 15.1* 15.4* 15.5* 15.2* 17.0* 16.6* MPV 9.8 10.5 10.2 10.4 10.4 10.4 10.8 PERNEU 79.7 76.2 77.8 78.9 70.5 67.5 76.1 PERLYM 12.2 15.4 13.6 11.7 17.7 19.6 13.7 PERMON 4.9 5.3 5.5 6.4 8.6 9.7 7.3 LYMC 0.95* 1.28 1.06 0.84* 1.28 1.13 0.94* MONOC 0.38 0.44 0.43 0.46 0.62 0.56 0.50 EOSC 0.12 0.14 0.12 0.15 0.16 0.14 0.15 BASOC 0.04 0.05 0.03 0.02 0.02 0.02 0.03 DTYPE AUTOMATED DIFFERENTIAL AUTOMATED DIFFERENTIAL AUTOMATED DIFFERENTIAL AUTOMATED DIFFERENTIAL AUTOMATED DIFFERENTIAL AUTOMATED DIFFERENTIAL AUTOMATED DIFFERENTIAL Recent Labs Lab 06/29/19 1352 06/30/19 0645 07/01/19 0951 07/02/19 1128 07/03/19 0751 07/04/19 0637 07/05/19 0525 NA 136 137 136 134* 133* 136 135* K 3.5 3.5 3.7 3.6 3.6 3.7 3.7 CL 98* 101 99* 97* 99* 100 98* CO2 31.9 29.0 31.5 32.8* 31.1 31.8 31.4 AGAP 6.1 7.0 5.5 4.2* 2.9* 4.2* 5.6 BUN 30* 27* 20* 16 15 13 15 CR 1.08* 0.92 0.95 0.87 0.91 0.85 0.76 BUNCREATININ 27.8* 29.3* 21.1 18.4 16.4 15.2 19.8 GFRNON 54* 66* 63* 70* 67* 72* 83* GFR 63* 76* 73* 82* 77* 84* >90 GLU 229* 46* 93 290* 172* 137* 248* CA 8.9 8.5 8.9 8.7 8.7 8.9 8.7 TP -- -- -- -- -- 7.0 -- ALB -- -- -- -- -- 2.2* -- TBIL -- -- -- -- -- 0.5 -- ALKP -- -- -- -- -- 40* -- AST -- -- -- -- -- 24 -- ALT -- -- -- -- -- 22 -- Recent Labs Lab 06/29/19 1352 CHOL 201* TRI 123 HDL 84 LDL 92 TSH 20.700* Recent Labs Lab 07/05/19 0525 INR 1.1 PTT 33.1 Recent Labs Lab 07/04/19 2211 CPK 57 No results for input(s): LACTICACID, PROCT in the last 168 hours. No results for input(s): PH, PCO2, PO2, [id number], BICARBWB, BASEDEFICIT, BASEEXCESS in the asrq204 hours. No results found for this or any previous visit. Imaging STAR 07/04/2019: SUMMARY: The left ventricular systolic function is normal. Estimated left ventricular ejection fraction is 55-60%. Moderate concentric left ventricular hypertrophy. Wall motion appears normal in all segments. Trace aortic regurgitation. Mild mitral regurgitation. A trace of tricuspid regurgitation. No evidence of endocarditis. MRI Ankle Right 07/02/2019: IMPRESSION: 1) Soft tissue ulceration involving the right heel with no evidence of soft tissue abscess. 2. No evidence of osteomyelitis. Echo 06/30/2019: SUMMARY: The left ventricular size is normal. The left ventricular systolic function is lower limits of normal. Estimated left ventricular ejection fraction is 50-55%. Moderate to severe concentric left ventricular hypertrophy. The left atrial size is moderately enlarged. Trivial pericardial effusion, without tamponade physiology. No significant valvular disease. Ct Cerv Spine Wo Con 06/28/2019 Examination: CT of the cervical spine. [...] 06/28/2019 3:[address] Head Wo Con 06/28/2019 Examination: CT of the head without [...] By: Xavier Costa MD, 06/28/2019 3:[address] Head Wo Con 06/05/2019 CT OF THE BRAIN WITHOUT CONTRAST INDICATION: Confusion/delirium, altered LOC, unexplained TECHNIQUE: CT of the brain was performed without contrast. A dose lowering technique was used for this procedure, which may include, but is not limited to, dose reduction techniques, automated exposure control, the use of a iterative reconstruction, and ALARA (as low as reasonably achievable)/image gently techniques. . COMPARISON: There are no prior studies. FINDINGS: Images are somewhat compromised due tomotion. The posterior fossa structures show mild atrophy with chronic ischemic changes. In the region of the basal ganglia calcifications which appear chronic. The temporal fossa and the frontal fossa is unremarkable. There is mild atrophy with chronic ischemic changes. No acute extra-axial fluid. There is no midline shift. The detail of the osseous structures is somewhat limited because of motion. No definite acute bony abnormalities. IMPRESSION: Limited study due to motion. No evidence of intracranial hemorrhage or other definite acute abnormalities. Mild atrophy with chronic ischemic changes. Xr Chest Portable 06/28/2019 Examination: Chest x-ray 1 view Exam [...] with oldhealed granulomatous disease. Tiny right granuloma. IMPRESSION: 1. No acute infiltrate demonstrated. 2. Mild cardiomegaly. 3. Old healed granulomatous disease. 4. Suboptimal exam. Xr Chest Portable 06/05/2019 Examination: Chest x-ray 1 view Exam date/time: 06/05/2019 3:58 PM Reason For Exam: weakness Comparison: Old radiographs are from March 2010 Technique: Upright AP view of the chest demonstrated. Findings: Heart size is borderline. Mediastinum shows small calcifications in theaortic arch. Chronic large calcified granuloma in the right paratracheal region. In the left upper l obe there is a bandlike density which may represent atelectasis and scar tissue which is different than before. In the remainder of the lungs there are no focal infiltrates. Please correlate clinically. If the patient has any respiratory symptoms follow-up chest radiographs recommended in one to 2 weeks to reevaluate the left upper lobe. Osseous structures are intact. IMPRESSION: Borderline cardiomegaly and chronic calcified granuloma. In the left upper lobe there is a bandlike linear density which may be atelectasis and scar tissue rather than acute inflammation.The remainder of the lungs show no focal infiltrates. : Results for orders placed or performed during the hospital encounter of 06/28/19 ECG [address] Test Date: 2019-06-28 Pat Name: IRIS GIL Department: Room: [id number] Gender: Female Tennis Director: DIONICIO : 1955 Requested By: AMANDA MOORE Order Number: [id number] Reading MD: Jonatan Aldrich Measurements Intervals [place] Rate: 70 P: 54 MO: 168 QRS: -43 QRSD: 117 T: 127 QT: 435 QTc: 470 Interpretive Statements SINUS RHYTHM MARKED LEFT AXIS DEVIATION POSSIBLE ANTERIOR MYOCARDIAL INFARCTION, OF INDETERMINATE AGE MODERATE T-WAVE ABNORMALITY, CONSIDER LATERAL ISCHEMIA Compared to ECG 06/05/2019 14:03:27 T-wave abnormality now present Possible ischemia now present Left anterior fascicular block no longer present ST (T wave) deviation no longer present Myocardial infarct finding still present Assessment & Plan Polymicrobial Bacteremia MRSA, E faecalis Suspect 2/2 multiple wounds ID consulted, appreciate recs On vanc initially, follow renal function, pharmacy to dose TTE obtained Repeat blood cx reveal 1/2 bottles with VRE, follow with ID recs Latest blood cultures NGSF Now on dapto (abx day 4/ total abx day 8) STAR d/t continued bacteremia, no evidence of endocarditis PVD With nonhealing wounds to LLE Vascular consulted, appreciate recs Will need LLE arteriogram with possible intervention Anemia Hgb 7.9 > now 5.6 Baseline appears to be near 9 Suspect 2/2 wounds, c/b component of underlying CKD Iron studies and folate WNL Check guaiac, still pending Start PPI BID Transfuse 1u pRBC 07/02 Now improved, awaiting guaiac, labs still pending for today Severe Sepsis without Shock Patient was found to be hypothermic in the ED with temperature of 93.9F and hypotension (pressure 89/56 mmHg which improved with IVF). Vancomycin and Cefepime were initiated for broad coverage, Monitor Cr, vanc trough Transitioned to dapto as above Source: skin given multiple ulcers found on exam Blood cx 1/2 with MRSA and Enterococcus and MRSA, see below D/c IVF Monitor VS closely, hemodynamically stable ID consulted. Recs appreciated Repeat blood cx NGSF Vascular surgery consulted, appreciate recs Acute Metabolic Encephalopathy: resolved Due to multiple causes, including infection, hyperglycemia, ABDIRASHID, NSTEMI. CT of the Head performed in the ED revealed no acute intracranial process; stable cortical atrophy and small vessel disease with left supraorbital scalp swelling. Treat as noted above and monitor mental status. Hold off on MRI and carotid Doppler study ordered as likely metabolic encephalopathy Resolved Elevated Troponin Initial Troponin level found to be 0.130. Trend Troponin levels. EKG revealed T-wave inversions. Cardiology consulted. Recs appreciated Echo with no WMAs Stress test as an outpatient per Cards T2DM with Hyperglycemia on presentation Patient presented with glucose > 500, not in DKA. Per ER documentation, patient's insulin supply ran out. Patient given IV insulin in the ED. Lantus at HS and add SSI per protocol. D/c Lantus given recurrent hypoglycemia despite Reduced dose. Patient's diet obviously much more restricted here than at home. Restarted for uncontrolled BG Monitor Accu-checks both AC and HS. A1c 11.4 on 05/08/2019 Increasing lantus daily, add meal time insulin ?? ABDIRASHID on CKD 3: resolved Patient presented with BUN of 21 and SCr of 1.31, up from 0.92 last month. Hydration with IVF Resolved. Off IVF Multiple pressure ulcers stage 2-3 POA Wound care c/s See media As above Obesity, BMI 31.21 Hypothyroidism Increased levothyroxine Follow up with PCP and repeat labs in 4-6 weeks ACP Full code Multiple admissions 2/2 noncompliance. SNF recommended last admission but patient and family ultimately declined. SW consulted for SNF placement. ?? Disposition: Continue dapo, follow latest blood cultures. LAUREN BEE NP Cosigned by Jeanine Whiting MD at 07/07/2019 7:38 AM CDT * Tess Montemayor RN - 07/05/2019 5:41 PM CDT Katie from [facility] called designer writer and states that the patient can return back to [place] as long as the daughter, Celina, is okay with patient returning. Per Katie, daughter had concerns about having to start owing after 20 days. Patient has 14 more covered MCR days. Will need to check with dtr on Monday about returning and to speak with [place] about her concerns before patient can return. Updated Katie on patient. SW will continue to follow. * Bud Weir MD - 07/05/2019 3:58 PM CDT Infectious Diseases Follow up Note Subjective: Patient seen and examined, no new events, post STAR stable . Objective: Filed Vitals: 07/04/19 2356 07/05/19 0415 07/05/19 0733 07/05/19 1133 BP: 139/64 123/53 132/57 120/59 Pulse: 80 83 81 76 Resp: 18 16 16 16 Temp: 97.7 ??F (36.5 ??C) 98.1 ??F (36.7 ??C) 98.2 ??F (36.8 ??C) 98.7 ??F (37.1 ??C) TempSrc: Axillary Oral Oral Oral SpO2: 100% 98% 93% 93% Weight: 76.6 kg (168 lb 14 oz) Height: ROS: Denies any abdominal pain, no nausea, no SOB. All other systems were assessed and were negative forany symptoms. Physical exam: General physical exam not in any apparent distress. 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 Labs: Recent Labs Lab 07/03/19 0751 07/04/19 0637 07/05/19 0525 WBC 7.2 5.8 6.9 RBC 1.91* 3.15* 3.20* HGB 5.6* 9.0* 9.3* HCT 17.7* 27.8* 28.7* MCV 92.7 88.3 89.7 MCH 29.3 28.6 29.1 MCHC 31.6* 32.4 32.4 PLT 186 161 190 RDW 15.2* 17.0* 16.6* MPV 10.4 10.4 10.8 PERNEU 70.5 67.5 76.1 PERLYM 17.7 19.6 13.7 PERMON 8.6 9.7 7.3 LYMC 1.28 1.13 0.94* MONOC 0.62 0.56 0.50 EOSC 0.16 0.14 0.15 BASOC 0.02 0.02 0.03 DTYPE AUTOMATED DIFFERENTIAL AUTOMATED DIFFERENTIAL AUTOMATED DIFFERENTIAL Recent Labs Lab 07/03/19 0751 07/04/19 0637 07/05/19 0525 NA 133* 136 135* K 3.6 3.7 3.7 CL 99* 100 98* CO2 31.1 31.8 31.4 AGAP 2.9* 4.2* 5.6 BUN 15 13 15 CR 0.91 0.85 0.76 BUNCREATININ 16.4 15.2 19.8 GFRNON 67* 72* 83* GFR 77* 84* >90 GLU 172* 137* 248* CA 8.7 8.9 8.7 TP -- 7.0 -- ALB -- 2.2* -- TBIL -- 0.5 -- ALKP -- 40* -- AST -- 24 -- ALT -- 22 -- Invalid input(s): LACTATE, PROCALCITONIN Microbiology: Blood: Results for orders placed or performed during the hospital encounter of 06/28/19 (from the past 168hour(s)) CULTURE, BACTERIA, BLOOD Collection Time: 07/03/19 1:49 PM Result Value Ref Range Spec. Description BLOOD-PEDIATRIC VOLUME Special Requests: NO SPECIAL REQUEST Culture Result: NO GROWTH 2 DAYS CULTURE, BACTERIA, BLOOD Collection Time: 07/03/19 1:49 PM Result Value Ref Range Spec. Description BLOOD-PEDIATRIC VOLUME Special Requests: NO SPECIAL REQUEST Culture Result: NO GROWTH 2 DAYS Urine: Results for orders placed or performed during the hospital encounter of 06/28/19 (from the past 168hour(s)) CULTURE URINE Collection Time: 06/28/19 6:09 PM Result Value Ref Range Spec. Description URINE [place] CATH Special Requests: NO SPECIAL REQUEST Culture Result: NO GROWTH 2 DAYS Imagin D Echo reviewed from 05/01 Ct head reviewed. ? ASSESSMENT & PLAN: ?? Polymicrobial bacteremia: Blood cultures with MRSA, E faecalis (susceptible to Ampicillin), initially then VRE, Urine with NGin culture although UA with WBCs. ?? Source? Possible leg wounds. superficial had laceration from fall. No chest infiltrate. ?? MRI Left Tibia and Fibula 01/08 No Osteomyelitis. - 2D echo reviewed, DM type 2 ABDIRASHID, creatinine improved Hypothyroidism Multiple pressure ulcers ?? Today's updated plan: Seen by Dr. Guy, plan for LE arteriogram and intervention if possible. Repeat blood cultures 07/01 with VRE, switched to daptomycin day 3. Repeated again 07/[address] Nails STAR negative. Afebrile, WBC count 6.9, follow blood culture. BUD WEIR MD 07/05/2019 * ONIEL Puentes - 07/05/2019 3:07 PM CDT 07/05/19 1506 Therapy Visit Reason for admission acute encephalopathy, elevated troponins Comorbidities Relevant to OT SEPSIS, DM, HTN, SCHIZOPHRENIA, HYPOTHERMC, BREAST CA Ordering Provider [facility] Subjective room 440. 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 Plan is for patient to return to [facility] at d/c. Will require an ambulance at d/c. Called [facility] at [phone] and left a for [place] for callback. SW will continue to follow. * Rizwana Robles PTA - 07/05/2019 12:36 PM CDT 07/05/19 1100 Therapy Visit Ordering Provider [facility] [id number]: Per RN patient is supposed to go for a procedure this date and possibly be D/C'd afterwards. Will follow up at later time/date if feasible. Reason for admission acute encephalopathy, elevated troponins Relevant Comorbidities/ Personal Factors to PT PMH: HTN, HLD, breast CA, DM2, schizophrenia, PVD, dementia * Lauren Bee NP - 07/05/2019 11:03 AM CDT Hospitalist Daily Progress Note Subjective Ms Gil is resting in bed when evaluated. STAR yesterday without evidence of endocarditis. Plans for arteriogram per vascular. No chest pain, or shortness of breath. No nausea, or vomiting. Objective Filed Vitals: 07/04/19 2039 07/04/19 2356 07/05/19 0415 07/05/19 0733 BP: 119/43 139/64 123/53 132/57 Pulse: 74 80 83 81 Resp: 16 18 16 16 Temp: 97.7 ??F (36.5 ??C) 97.7 ??F (36.5 ??C) 98.1 ??F (36.7 ??C) 98.2 ??F (36.8 ??C) TempSrc: Oral Axillary Oral Oral SpO2: 98% 100% 98% 93% Weight: 76.6 kg (168 lb 14 oz) Height: Intake/Output 24H Total: Intake/Output Summary (Last 24 hours) at 07/05/2019 1104 Last data filed at 07/05/2019 0906 Gross per 24 hour Intake 513 ml Output 1400 ml Net -887 ml Physical Exam: -GENERAL: No acute distress, Well nourished -HEAD: Normocephalic, Atraumatic -EYES: Extraocular movements intact -LUNGS: Effort normal, clear breath sounds, no crackles or wheezes -CVS: RRR -NEURO: Awake, alert, oriented to self and time, No gross neuro deficits -SKIN: bandages to LLE CDI -PSYCH: pleasant and cooperative Medications ??? aspirin 325 mg Oral Daily ??? atorvastatin 40 mg Oral Daily ??? collagenase Topical Daily ??? DAPTOmycin 10 mg/kg (Adjusted) Intravenous Q24H ??? insulin glargine 8 Units Subcutaneous Nightly at bedtime ??? insulin lispro 0-16 Units Subcutaneous TID AC And ??? insulin lispro 0-8 Units Subcutaneous Nightly at bedtime ??? insulin lispro 5 Units Subcutaneous TID WC ??? levothyroxine 75 mcg Oral Daily ??? pantoprazole 40 mg Intravenous BID acetaminophen, dextrose, dextrose 10 % bolus, glucagon, nitroglycerin, ondansetron, polyethylene glycol Labs, Imaging, Other Studies Recent Labs Lab 06/29/19 1352 06/30/19 0645 07/01/19 0951 07/02/19 1128 07/03/19 0751 07/04/19 0637 07/05/19 0525 WBC 7.8 8.3 7.8 7.2 7.2 5.8 6.9 RBC 3.04* 2.81* 2.95* 2.69* 1.91* 3.15* 3.20* HGB 9.0* 8.3* 8.7* 7.9* 5.6* 9.0* 9.3* HCT 27.5* 25.5* 26.9* 24.7* 17.7* 27.8* 28.7* MCV 90.5 90.7 91.2 91.8 92.7 88.3 89.7 MCH 29.6 29.5 29.5 29.4 29.3 28.6 29.1 MCHC 32.7 32.5 32.3 32.0 31.6* 32.4 32.4 PLT 220 213 191 168 186 161 190 RDW 15.1* 15.1* 15.4* 15.5* 15.2* 17.0* 16.6* MPV 9.8 10.5 10.2 10.4 10.4 10.4 10.8 PERNEU 79.7 76.2 77.8 78.9 70.5 67.5 76.1 PERLYM 12.2 15.4 13.6 11.7 17.7 19.6 13.7 PERMON 4.9 5.3 5.5 6.4 8.6 9.7 7.3 LYMC 0.95* 1.28 1.06 0.84* 1.28 1.13 0.94* MONOC 0.38 0.44 0.43 0.46 0.62 0.56 0.50 EOSC 0.12 0.14 0.12 0.15 0.16 0.14 0.15 BASOC 0.04 0.05 0.03 0.02 0.02 0.02 0.03 DTYPE AUTOMATED DIFFERENTIAL AUTOMATED DIFFERENTIAL AUTOMATED DIFFERENTIAL AUTOMATED DIFFERENTIAL AUTOMATED DIFFERENTIAL AUTOMATED DIFFERENTIAL AUTOMATED DIFFERENTIAL Recent Labs Lab 06/28/19 1426 06/29/19 1352 06/30/19 0645 07/01/19 0951 07/02/19 1128 07/03/19 0751 07/04/19 0637 07/05/19 0525 NA 133* 136 137 136 134* 133* 136 135* K 4.1 3.5 3.5 3.7 3.6 3.6 3.7 3.7 CL 92* 98* 101 99* 97* 99* 100 98* CO2 33.3* 31.9 29.0 31.5 32.8* 31.1 31.8 31.4 AGAP 7.7 6.1 7.0 5.5 4.2* 2.9* 4.2* 5.6 BUN 26* 30* 27* 20* 16 15 13 15 CR 1.31* 1.08* 0.92 0.95 0.87 0.91 0.85 0.76 BUNCREATININ 19.8 27.8* 29.3* 21.1 18.4 16.4 15.2 19.8 GFRNON 43* 54* 66* 63* 70* 67* 72* 83* GFR 50* 63* 76* 73* 82* 77* 84* >90 GLU 570* 229* 46* 93 290* 172* 137* 248* CA 9.5 8.9 8.5 8.9 8.7 8.7 8.9 8.7 TP 8.1 -- -- -- -- -- 7.0 -- ALB 2.9* -- -- -- -- -- 2.2* -- TBIL 0.5 -- -- -- -- -- 0.5 -- ALKP 75 -- -- -- -- -- 40* -- AST 28 -- -- -- -- -- 24 -- ALT 39 -- -- -- -- -- 22 -- Recent Labs Lab 06/29/19 1352 CHOL 201* TRI 123 HDL 84 LDL 92 TSH 20.700* Recent Labs Lab 07/05/19 0525 INR 1.1 PTT 33.1 Recent Labs Lab 06/28/19 1426 06/28/19 1942 06/28/19 2134 06/29/19 0235 07/04/19 2211 TROP 0.130* 0.124* 0.125* 0.135* -- CPK 152 -- -- -- 57 Recent Labs Lab 06/28/19 1824 06/29/19 0009 LACTICACID 3.7* 2.9* No results for input(s): PH, PCO2, PO2, [id number], BICARBWB, BASEDEFICIT, BASEEXCESS in the [id number] hours. No results found for this or any previous visit. Imaging Ct Cerv Spine Wo Con 06/28/2019 Examination: CT of the cervical spine. [...] 06/28/2019 3:[address] Head Wo Con 06/28/2019 Examination: CT of the head without [...] By: Xavier Costa MD, 06/28/2019 3:[address] Head Wo Con 06/05/2019 CT OF THE BRAIN WITHOUT CONTRAST INDICATION: Confusion/delirium, altered LOC, unexplained TECHNIQUE: CT of the brain was performed without contrast. A dose lowering technique was used for this procedure, which may include, but is not limited to, dose reduction techniques, automated exposure control, the use of a iterative reconstruction, and ALARA (as low as reasonably achievable)/image gently techniques. . COMPARISON: There are no prior studies. FINDINGS: Images are somewhat compromised due tomotion. The posterior fossa structures show mild atrophy with chronic ischemic changes. In the region of the basal ganglia calcifications which appear chronic. The temporal fossa and the frontal fossa is unremarkable. There is mild atrophy with chronic ischemic changes. No acute extra-axial fluid. There is no midline shift. The detail of the osseous structures is somewhat limited because of motion. No definite acute bony abnormalities. IMPRESSION: Limited study due to motion. No evidence of intracranial hemorrhage or other definite acute abnormalities. Mild atrophy with chronic ischemic changes. Xr Chest Portable 06/28/2019 Examination: Chest x-ray 1 view Exam [...] Old healed granulomatous disease. 4. Suboptimal exam. Xr Chest Portable 06/05/2019 Examination: Chest x-ray 1 view Exam date/time: 06/05/2019 3:58 PM Reason For Exam: weakness Comparison: Old radiographs are from March 2010 Technique: Upright AP view of the chest demonstrated. Findings: Heart size is borderline. Mediastinum shows small calcifications in the aortic arch. Chronic large calcified granuloma in the right paratracheal region. In the left upperlobe there is a bandlike density which may represent atelectasis and scar tissue which is differentthan before. In the remainder of the lungs there are no focal infiltrates. Please correlate clinically. If the patient has any respiratory symptoms follow-up chest radiographs recommended in one to 2weeks to reevaluate the left upper lobe. Osseous structures are intact. =====IMPRESSION:===== Borderline cardiomegaly and chronic calcified granuloma. In the left upper lobe there is a bandlike linear density which may be atelectasis and scar tissue rather than acute inflammation. The remainder of the lungs show no focal infiltrates. : Results for orders placed or performed during the hospital encounter of 06/28/19 ECG [address] 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 : 1955 Requested By: AMANDA MOORE Order Number: [id number] Reading MD: Jonatan Aldrich Measurements Intervals [place] Rate: 70 P: 54 MO: 168 QRS: -43 QRSD: 117 T: 127 QT: 435 QTc: 470 Interpretive Statements SINUS RHYTHM MARKED LEFT AXIS DEVIATION POSSIBLE ANTERIOR MYOCARDIAL INFARCTION, OF INDETERMINATE AGE MODERATE T-WAVE ABNORMALITY, CONSIDER LATERAL ISCHEMIA Compared to ECG 06/05/2019 14:03:27 T-wave abnormality now present Possible ischemia now present Left anterior fascicular block no longer present ST (T wave) deviation no longer present Myocardial infarct finding still present Assessment & Plan Polymicrobial Bacteremia MRSA, E faecalis 2/2 multiple wounds ID consulted, appreciate recs Continue vanc, follow renal function, pharmacy to dose TTE obtained Repeat blood cx reveal 1/2 bottles with VRE, follow with ID recs Now on dapto (abx day 3/ total abx day 8) STAR d/t continued bacteremia, no evidence of endocarditis PVD With nonhealing wounds to LLE Vascular consulted, appreciate recs Will need LLE arteriogram with possible intervention Anemia Hgb 7.9 > now 5.6 Baseline appears to be near 9 Suspect 2/2 wounds, c/b component of underlying CKD Iron studies and folate WNL Check guaiac Start PPI BID Transfuse 1u pRBC 07/02 Now improved, awaiting guaiac Severe Sepsis without Shock Patient was found to be hypothermic in the ED with temperature of 93.9F and hypotension (pressure 89/56 mmHg which improved with IVF). Vancomycin and Cefepime were initiated for broad coverage, Monitor Cr, vanc trough Transitioned to dapto as above Source: skin given multiple ulcers found on exam Blood cx 1/2 with MRSA and Enterococcus and MRSA, see below D/c IVF Monitor VS closely, hemodynamically stable ID consulted. Recs appreciated Repeat blood cx pending Vascular surgery consulted, appreciate recs Acute Metabolic Encephalopathy: resolved Due to multiple causes, including infection, hyperglycemia, ABDIRASHID, NSTEMI. CT of the Head performed in the ED revealed no acute intracranial process; stable cortical atrophy and small vessel disease with left supraorbital scalp swelling. Treat as noted above and monitor mental status. Hold off on MRI and carotid Doppler study ordered as likely metabolic encephalopathy Elevated Troponin Initial Troponin level found to be 0.130. Trend Troponin levels. EKG revealed T-wave inversions. Cardiology consulted. Recs appreciated Echo with no WMAs Stress test as an outpatient per Cards T2DM with Hyperglycemia on presentation Patient presented with glucose > 500, not in DKA. Per ER documentation, patient's insulin supply ran out. Patient given IV insulin in the ED. Lantus at HS and add SSI per protocol. D/c Lantus given recurrent hypoglycemia despite Reduced dose. Patient's diet obviously much more restricted here than at home. Restarted for uncontrolled BG Monitor Accu-checks both AC and HS. A1c 11.4 on 05/08/2019 Increasing lantus daily, add meal time insulin ?? ABDIRASHID on CKD 3: resolved Patient presented with BUN of 21 and SCr of 1.31, up from 0.92 last month. Hydration with IVF Resolved. Off IVF Multiple pressure ulcers stage 2-3 POA Wound care c/s See media As above Obesity, BMI 31.21 Hypothyroidism Increased levothyroxine Follow up with PCP and repeat labs in 4-6 weeks ACP Full code Multiple admissions 2/2 noncompliance. SNF recommended last admission but patient and family ultimately declined. SW consulted for SNF placement. ?? Plan of care discussed with the primary nurse and cardiology. LAUREN BEE NP Cosigned by Jeanine Whiting MD at 07/06/2019 7:44 AM CDT * Khadar Humphreys RN - 07/05/2019 9:10 AM CDT Problem: Infection - Risk of, Urinary Catheter-Associated Urinary Tract Infection Goal: Absence of infection signs and symptoms Outcome: Not Progressing * Khadar Humphreys RN - 07/05/2019 9:09 AM CDT Problem: Pain Goal: Patient's pain/discomfort is manageable Description Assess and monitor patient's pain using appropriate pain scale. Collaborate with interdisciplinary team and initiate plan and interventions as ordered. Re- assess patient's pain level 30 - 60 minutes after pain management intervention. Outcome: Progressing Problem: Safety Goal: Patient will be injury free during hospitalization Description Assess and monitor vitals signs, neurological status including level of consciousness and orientation. Assess patient's risk for falls and implement fall prevention plan of care and interventions perhospital policy. Ensure arm band on, uncluttered walking paths in room, adequate room lighting, call light and overbed table within reach, bed in low position, wheels locked, side rails up per policy, and non-skid footwear provided. Outcome: Progressing Problem: Daily Care Goal: Daily care needs are met Description Assess and monitor ability to perform self care and identify potential discharge needs. Outcome: Progressing Problem: Psychosocial Needs Goal: Demonstrates ability to cope with hospitalization/illness Description Assess and monitor patients ability to cope with his/her illness. Outcome: Progressing Goal: Collaborate with patient/family/caregiver to identify patient specific goals for this hospitalization Outcome: Progressing Problem: Discharge Barriers Goal: Patient's discharge needs are met Description Collaborate with interdisciplinary team and initiate plans and interventions as needed. Outcome: Progressing * Onelia Aquino RN - 07/05/2019 12:55 AM CDT Problem: Feeding Goal: STG - Pt will feed self with Description MIN A Outcome: Progressing Patient can feed self after set up help. Problem: Pain Goal: Patient's pain/discomfort is manageable Outcome: Progressing No complaints of pain or discomfort this shift. * Marti Estrada RN - 07/04/2019 5:16 PM CDT Problem: Reduced risk for falls/injury Goal: Reduced Risk for Falls/Injury Outcome: Progressing Patient is on standard fall precautions with call light in place and bed alarm on. Problem: Pain Goal: Patient's pain/discomfort is manageable Description Assess and monitor patient's pain using appropriate pain scale. Collaborate with interdisciplinary team and initiate plan and interventions as ordered. Re- assess patient's pain level 30 - 60 minutes after pain management intervention. Outcome: Progressing Patient denies pain at this time. Problem: Safety Goal: Patient will be injury free during hospitalization Description Assess and monitor vitals signs, neurological status including level of consciousness and orientation. Assess patient's risk for falls and implement fall prevention plan of care and interventions perhospital policy. Ensure arm band on, uncluttered walking paths in room, adequate room lighting, call light and overbed table within reach, bed in low position, wheels locked, side rails up per policy, and non-skid footwear provided. Outcome: Progressing Patient remains injury free this shift. Problem: Daily Care Goal: Daily care needs are met Description Assess and monitor ability to perform self care and identify potential discharge needs. Outcome: Progressing Patient assisted with daily care needs. Problem: Psychosocial Needs Goal: Demonstrates ability to cope with hospitalization/illness Description Assess and monitor patients ability to cope with his/her illness. Outcome: Progressing Patient denies needs at this time. * Khalif Guy MD - 07/04/2019 3:22 PM CDT Images from the original note were not included. Iris Gil is a 64-year-old female Subjective: No complaints. The patient has agreed to left lower extremity arteriogram and possible intervention. Current Facility-Administered Medications Medication Dose Route Frequency Provider Last Rate Last Dose ??? acetaminophen (TYLENOL) tablet 650 mg 650 mg Oral Q4H PRN Sunita Nails MD ??? aspirin tablet 325 mg 325 mg Oral Daily Savanna Ardon MD 325 mg at 07/04/19958 ??? atorvastatin (LIPITOR) tablet 40 mg 40 mg Oral Daily Sunita Nails MD 40 mg at 07/04/19958 ??? collagenase (SANTYL) ointment Topical Daily Sunita Nails MD ??? DAPTOmycin (CUBICIN) 600 mg in sodium chloride 0.9 % 100 mL IVPB 10 mg/kg (Adjusted) Intravenous Q24H Sunita Nails MD 200 mL/hr at 07/04/19 1455 600 mg at 07/04/19 1455 ??? dextrose (GLUTOSE) 40 % oral gel 15-30 g 15-30 g Oral PRN Sunita Nails MD 30 g at 07/01/19 1546 ??? dextrose 10 % bolus infusion 125-250 mL 125-250 mL Intravenous PRN Sunita Nails MD ??? glucagon injection 1 mg 1 mg Intramuscular Once PRN Sunita Nails MD ??? insulin glargine (LANTUS) injection 8 Units 8 Units Subcutaneous Nightly at bedtime Sunita Nails MD ??? insulin lispro (HUMALOG) injection 0-16 Units 0-16 Units Subcutaneous TID AC Sunita Nails MD Stopped at 07/04/19 0755 And ??? insulin lispro (HUMALOG) injection 0-8 Units 0-8 Units Subcutaneous Nightly at bedtime Sunita Fleming MD 5 Units at 07/03/19 2156 ??? levothyroxine (SYNTHROID) tablet 75 mcg 75 mcg Oral Daily Sunita Nails MD 75 mcg at 07/04/19 0603 ??? nitroglycerin (NITROSTAT) SL tablet 0.4 mg 0.4 mg Sublingual Q5 Min PRN Sunita Nails MD ??? ondansetron (ZOFRAN) injection 4 mg 4 mg Intravenous Q8H PRN Sunita Nails MD ??? pantoprazole (PROTONIX) injection 40 mg 40 mg Intravenous BID Sunita Nails MD 40 mg at 07/04/19 0959 ??? polyethylene glycol (GLYCOLAX) packet 17 g 17 g Oral Daily PRN Sunita Nails MD Allergies Allergen Reactions ??? Codeine Nausea and Vomiting Review of Systems Constitutional: Negative. Respiratory: Negative. Cardiovascular: Negative. Gastrointestinal: Negative. Musculoskeletal: Positive for myalgias. Skin: Positive for wound. Neurological: Negative. Hematological: Negative. Objective: I/O last 3 completed shifts: In: 620.5 [I.V.:313; Blood:307.5] Out: 300 [Urine:300] Blood pressure 138/49, pulse 63, temperature 97.3 ??F (36.3 ??C), temperature source Oral, resp. rate 14, height 5' 2 (1.575 m), weight 76.3 kg (168 lb 3.4 oz), SpO2 97 %. Physical Exam Constitutional: She is oriented to person, place, and time. No distress. HENT: Head: Normocephalic. Eyes: No scleral icterus. Cardiovascular: Normal rate. Pulmonary/Chest: Effort normal. Abdominal: Soft. Musculoskeletal: She exhibits tenderness. Neurological: She is alert and oriented to person, place, and time. Skin: Skin is dry. She is not diaphoretic. Lab Results Component Value Date NA 136 07/04/2019 K 3.7 07/04/2019 CL 100 07/04/2019 CO2 31.8 07/04/2019 AGAP 4.2 (L) 07/04/2019 BUN 13 07/04/2019 CR 0.85 07/04/2019 BUNCREATININ 15.2 07/04/2019 GFRNON 72 (L) 07/04/2019 GFR 84 (L) 07/04/2019 GLU 137 (H) 07/04/2019 CA 8.9 07/04/2019 Lab Results Component Value Date WBC 5.8 07/04/2019 HGB 9.0 (L) 07/04/2019 PLT 161 07/04/2019 Lab Results Component Value Date CHOL 201 (H) 06/29/2019 TRI 123 06/29/2019 HDL 84 06/29/2019 TP 7.0 07/04/2019 ALB 2.2 (L) 07/04/2019 ALT 22 07/04/2019 HGBA1C 11.4 (H) 05/08/2019 TSH 20.700 (H) 06/29/2019 Active Problems: Encephalopathy acute SNOMED CT(R): DISORDER OF BRAIN Elevated troponin SNOMED CT(R): PROTEIN LEVEL - FINDING Essential hypertension SNOMED CT(R): ESSENTIAL HYPERTENSION Mixed hyperlipidemia SNOMED CT(R): MIXED HYPERLIPIDEMIA Plan: Plan for arteriogram and possible intervention. 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 Objective: Filed Vitals: 07/03/19 19507/04/19 0035 07/04/19 0411 07/04/19 0711 BP: 125/58 111/78 116/81 134/57 Pulse: 83 80 80 73 Resp: 18 18 18 18 Temp: 98.8 ??F (37.1 ??C) 98.8 ??F (37.1 ??C) 98.8 ??F (37.1 ??C) 98.7 ??F (37.1 ??C) TempSrc: Oral Oral Oral Oral SpO2: 99% 98% 97% 96% Weight: 76.3 kg (168 lb 3.4 oz) Height: ROS: Denies any abdominal pain, no nausea, no SOB. All other systems were assessed and were negative forany symptoms. Physical exam: General physical exam not in any apparent distress. 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 Labs: Recent Labs Lab 07/02/19 1128 07/03/19 0751 07/04/19 0637 WBC 7.2 7.2 5.8 RBC 2.69* 1.91* 3.15* HGB 7.9* 5.6* 9.0* HCT 24.7* 17.7* 27.8* MCV 91.8 92.7 88.3 MCH 29.4 29.3 28.6 MCHC 32.0 31.6* 32.4 PLT 168 186 161 RDW 15.5* 15.2* 17.0* MPV 10.4 10.4 10.4 PERNEU 78.9 70.5 67.5 PERLYM 11.7 17.7 19.6 PERMON 6.4 8.6 9.7 LYMC 0.84* 1.28 1.13 MONOC 0.46 0.62 0.56 EOSC 0.15 0.16 0.14 BASOC 0.02 0.02 0.02 DTYPE AUTOMATED DIFFERENTIAL AUTOMATED DIFFERENTIAL AUTOMATED DIFFERENTIAL Recent Labs Lab 06/28/19 1426 07/02/19 1128 07/03/19 0751 07/04/19 0637 NA 133* < > 134* 133* 136 K 4.1 < > 3.6 3.6 3.7 CL 92* < > 97* 99* 100 CO2 33.3* < > 32.8* 31.1 31.8 AGAP 7.7 < > 4.2* 2.9* 4.2* BUN 26* < > 16 15 13 CR 1.31* < > 0.87 0.91 0.85 BUNCREATININ 19.8 < > 18.4 16.4 15.2 GFRNON 43* < > 70* 67* 72* GFR 50* < > 82* 77* 84* GLU 570* < > 290* 172* 137* CA 9.5 < > 8.7 8.7 8.9 TP 8.1 -- -- -- 7.0 ALB 2.9* -- -- -- 2.2* TBIL 0.5 -- -- -- 0.5 ALKP 75 -- -- -- 40* AST 28 -- -- -- 24 ALT 39 -- -- -- 22 < > = values in this interval not displayed. Invalid input(s): LACTATE, PROCALCITONIN Microbiology: Blood: Results for orders placed or performed during the hospital encounter of 06/28/19 (from the past 168hour(s)) CULTURE, BACTERIA, BLOOD Collection Time: 07/03/19 1:49 PM Result Value Ref Range Spec. Description BLOOD-PEDIATRIC VOLUME Special Requests: NO SPECIAL REQUEST Culture Result: NO GROWTH 1 DAY CULTURE, BACTERIA, BLOOD Collection Time: 07/03/19 1:49 PM Result Value Ref Range Spec. Description BLOOD-PEDIATRIC VOLUME Special Requests: NO SPECIAL REQUEST Culture Result: NO GROWTH 1 DAY Urine: Results for orders placed or performed during the hospital encounter of 06/28/19 (from the past 168hour(s)) CULTURE URINE Collection Time: 06/28/19 6:09 PM Result Value Ref Range Spec. Description URINE [facility] CATH Special Requests: NO SPECIAL REQUEST Culture Result: NO GROWTH 2 DAYS Imagin D Echo reviewed from 05/01 Ct head reviewed. ? ASSESSMENT & PLAN: ?? Polymicrobial bacteremia: Blood cultures with MRSA, E faecalis (susceptible to Ampicillin), initially then VRE, Urine with NGin culture although UA with WBCs. ?? Source? Possible leg wounds. superficial had laceration from fall. No chest infiltrate. ?? MRI Left Tibia and Fibula 01/08 No Osteomyelitis. - 2D echo reviewed, DM type 2 ABDIRASHID, creatinine improved Hypothyroidism Multiple pressure ulcers ?? Today's updated plan: Seen by Dr. Guy, plan for LE arteriogram and intervention if possible. Repeat blood cultures 07/01 with VRE, switched to daptomycin day 2. Will order CPK. Repeated again 07/[address] Nails evaluated for a STAR, patient denied initially, but now agreeable. Afebrile, WBC count WNL. BUD WEIR MD 07/04/2019 * Sharon Ortez NP - 07/04/2019 11:36 AM CDT Hospitalist Daily Progress Note Subjective Ms Gil is resting in bed when seen and examined upon rounds this am. Discussed with the patientthe importance of STAR, explained the procedure and patient is agreeable. She tells me she slept well overnight. She denies CP/SOB, fever/chills, n/v/d, palpitations. Objective Filed Vitals: 07/03/19 1959 07/04/19 0035 07/04/19 0411 07/04/19 0711 BP: 125/58 111/78 116/81 134/57 Pulse: 83 80 80 73 Resp: 18 18 18 18 Temp: 98.8 ??F (37.1 ??C) 98.8 ??F (37.1 ??C) 98.8 ??F (37.1 ??C) 98.7 ??F (37.1 ??C) TempSrc: Oral Oral Oral Oral SpO2: 99% 98% 97% 96% Weight: 76.3 kg (168 lb 3.4 oz) Height: Intake/Output 24H Total: Intake/Output Summary (Last 24 hours) at 07/04/2019 1136 Last data filed at 07/04/2019 0035 Gross per 24 hour Intake 307.5 ml Output 300 ml Net 7.5 ml Physical Exam: -GENERAL: No acute distress, Well nourished -HEAD: Normocephalic, Atraumatic -EYES: Extraocular movements intact -LUNGS: Effort normal, CTAB -CVS: RRR -NEURO: Awake, alert, oriented to self and time, No gross neuro deficits -SKIN: bandages to LLE CDI -PSYCH: pleasant and cooperative Medications ??? aspirin 325 mg Oral Daily ??? atorvastatin 40 mg Oral Daily ??? collagenase Topical Daily ??? DAPTOmycin 10 mg/kg (Adjusted) Intravenous Q24H ??? insulin glargine 5 Units Subcutaneous Nightly at bedtime ??? insulin lispro 0-16 Units Subcutaneous TID AC And ??? insulin lispro 0-8 Units Subcutaneous Nightly at bedtime ??? levothyroxine 75 mcg Oral Daily ??? pantoprazole 40 mg Intravenous BID acetaminophen, dextrose, dextrose 10 % bolus, glucagon, nitroglycerin, ondansetron, polyethylene glycol Labs, Imaging, Other Studies Recent Labs Lab 06/28/19 1426 06/29/19 1352 06/30/19 0645 07/01/19 0951 07/02/19 1128 07/03/19 0751 07/04/19 0637 WBC 6.8 7.8 8.3 7.8 7.2 7.2 5.8 RBC 3.47* 3.04* 2.81* 2.95* 2.69* 1.91* 3.15* HGB 10.2* 9.0* 8.3* 8.7* 7.9* 5.6* 9.0* HCT 30.8* 27.5* 25.5* 26.9* 24.7* 17.7* 27.8* MCV 88.8 90.5 90.7 91.2 91.8 92.7 88.3 MCH 29.4 29.6 29.5 29.5 29.4 29.3 28.6 MCHC 33.1 32.7 32.5 32.3 32.0 31.6* 32.4 PLT 267 220 213 191 168 186 161 RDW 14.7* 15.1* 15.1* 15.4* 15.5* 15.2* 17.0* MPV 11.0 9.8 10.5 10.2 10.4 10.4 10.4 PERNEU 74.0 79.7 76.2 77.8 78.9 70.5 67.5 PERLYM 16.1 12.2 15.4 13.6 11.7 17.7 19.6 PERMON 6.2 4.9 5.3 5.5 6.4 8.6 9.7 LYMC 1.09 0.95* 1.28 1.06 0.84* 1.28 1.13 MONOC 0.42 0.38 0.44 0.43 0.46 0.62 0.56 EOSC 0.07 0.12 0.14 0.12 0.15 0.16 0.14 BASOC 0.04 0.04 0.05 0.03 0.02 0.02 0.02 DTYPE AUTOMATED DIFFERENTIAL AUTOMATED DIFFERENTIAL AUTOMATED DIFFERENTIAL AUTOMATED DIFFERENTIAL AUTOMATED DIFFERENTIAL AUTOMATED DIFFERENTIAL AUTOMATED DIFFERENTIAL Recent Labs Lab 06/28/19 1426 06/29/19 1352 06/30/19 0645 07/01/19 0951 07/02/19 1128 07/03/19 0751 07/04/19 0637 NA 133* 136 137 136 134* 133* 136 K 4.1 3.5 3.5 3.7 3.6 3.6 3.7 CL 92* 98* 101 99* 97* 99* 100 CO2 33.3* 31.9 29.0 31.5 32.8* 31.1 31.8 AGAP 7.7 6.1 7.0 5.5 4.2* 2.9* 4.2* BUN 26* 30* 27* 20* 16 15 13 CR 1.31* 1.08* 0.92 0.95 0.87 0.91 0.85 BUNCREATININ 19.8 27.8* 29.3* 21.1 18.4 16.4 15.2 GFRNON 43* 54* 66* 63* 70* 67* 72* GFR 50* 63* 76* 73* 82* 77* 84* GLU 570* 229* 46* 93 290* 172* 137* CA 9.5 8.9 8.5 8.9 8.7 8.7 8.9 TP 8.1 -- -- -- -- -- 7.0 ALB 2.9* -- -- -- -- -- 2.2* TBIL 0.5 -- -- -- -- -- 0.5 ALKP 75 -- -- -- -- -- 40* AST 28 -- -- -- -- -- 24 ALT 39 -- -- -- -- -- 22 Recent Labs Lab 06/29/19 1352 CHOL 201* TRI 123 HDL 84 LDL 92 TSH 20.700* No results for input(s): APTT, INR, PTT in the last 168 hours. Recent Labs Lab 06/28/19 1426 06/28/19 1942 06/28/19 2134 06/29/19 0235 TROP 0.130* 0.124* 0.125* 0.135* CPK 152 -- -- -- Recent Labs Lab 06/28/19 1824 06/29/19 0009 LACTICACID 3.7* 2.9* No results for input(s): PH, PCO2, PO2, L2PRPRAPQHAQ, BICARBWB, BASEDEFICIT, BASEEXCESS in the [id number] hours. No results found for this or any previous visit. Imaging Ct Cerv Spine Wo Con Result Date: [...] By: Xavier Costa MD, 06/28/2019 3:[address] Head Wo Con Result Date: 06/05/2019 CT OF THE BRAIN WITHOUT CONTRAST INDICATION: Confusion/delirium, altered LOC, unexplained TECHNIQUE: CT of the brain was performed without contrast. A dose lowering technique was used for this procedure, which may include, but is not limited to, dose reduction techniques, automated exposure control, the use of a iterative reconstruction, and ALARA (as low as reasonably achievable)/image gently techniques. . COMPARISON: There are no prior studies. FINDINGS: Images are somewhat compromised due tomotion. The posterior fossa structures show mild atrophy with chronic ischemic changes. In the region of the basal ganglia calcifications which appear chronic. The temporal fossa and the frontal fossa is unremarkable. There is mild atrophy with chronic ischemic changes. No acute extra-axial fluid. There is no midline shift. The detail of the osseous structures is somewhat limited because of motion. No definite acute bony abnormalities. IMPRESSION: Limited study due to motion. No evidence of intracranial hemorrhage or other definite acute abnormalities. Mild atrophy with chronic ischemic changes. Xr Chest Portable Result Date: 06/28/2019 Examination: [...] Old healed granulomatous disease. 4. Suboptimal exam. Xr Chest Portable Result Date: 06/05/2019 Examination: Chest x-ray 1 view Exam date/time: 06/05/2019 3:58 PM Reason For Exam: weakness Comparison: Old radiographs are from March 2010 Technique: Upright AP view of the chest demonstrated. Findings: Heart size is borderline. Mediastinum shows small calcifications in the aortic arch. Chronic large calcified granuloma in the right paratracheal region. In the left upperlobe there is a bandlike density which may represent atelectasis and scar tissue which is differentthan before. In the remainder of the lungs there are no focal infiltrates. Please correlate clinically. If the patient has any respiratory symptoms follow-up chest radiographs recommended in one to 2weeks to reevaluate the left upper lobe. Osseous structures are intact. =====IMPRESSION:===== Borderline cardiomegaly and chronic calcified granuloma. In the left upper lobe there is a bandlike linear density which may be atelectasis and scar tissue rather than acute inflammation. The remainder of the lungs show no focal infiltrates. : Results for orders placed or performed during the hospital encounter of 06/28/19 ECG [address] [facility] Test Date: 2019-06-28 Pat Name: IRIS GIL Department: Room: [place] [address] Gender: Female Tennis Director: DIONICIO : 1955 Requested By: AMANDA MOORE Order Number: [id number] Reading MD: Jonatan Aldrich Measurements Intervals [place] Rate: 70 P: 54 MO: 168 QRS: -43 QRSD: 117 T: 127 QT: 435 QTc: 470 Interpretive Statements SINUS RHYTHM MARKED LEFT AXIS DEVIATION POSSIBLE ANTERIOR MYOCARDIAL INFARCTION, OF INDETERMINATE AGE MODERATE T-WAVE ABNORMALITY, CONSIDER LATERAL ISCHEMIA Compared to ECG 06/05/2019 14:03:27 T-wave abnormality now present Possible ischemia now present Left anterior fascicular block no longer present ST (T wave) deviation no longer present Myocardial infarct finding still present Assessment & Plan Polymicrobial Bacteremia MRSA, E faecalis 2/2 multiple wounds ID consulted, appreciate recs Continue vanc, follow renal function, pharmacy to dose TTE obtained Repeat blood cx reveal 1/2 bottles with VRE, follow with ID recs Now on dapto (abx day 2/ total abx day 8) STAR today d/t continued bacteremia PVD With nonhealing wounds to LLE Vascular consulted, appreciate recs Will need LLE arteriogram with possible intervention Anemia Hgb 7.9 > now 5.6 Baseline appears to be near 9 Suspect 2/2 wounds, c/b component of underlying CKD Iron studies and folate WNL Check guaiac Start PPI BID Transfuse 1u pRBC today Consult GI pending guaiac results 07/03- hgb now 9.0, awaiting guaiac Severe Sepsis without Shock Patient was found to be hypothermic in the ED with temperature of 93.9F and hypotension (pressure 89/56 mmHg which improved with IVF). Vancomycin and Cefepime were initiated for broad coverage, Monitor Cr, vanc trough (now monotherapyvanc) Source: skin given multiple ulcers found on exam Blood cx 03/14 with MRSA and Enterococcus and MRSA, see below D/c IVF Monitor VS closely, hemodynamically stable ID consulted. Recs appreciated Repeat blood cx pending Vascular surgery consulted, appreciate recs Acute Metabolic Encephalopathy: resolved Due to multiple causes, including infection, hyperglycemia, ABDIRASHID, NSTEMI. CT of the Head performed in the ED revealed no acute intracranial process; stable cortical atrophy and small vessel disease with left supraorbital scalp swelling. Treat as noted above and monitor mental status. Hold off on MRI and carotid Doppler study ordered as likely metabolic encephalopathy Elevated Troponin Initial Troponin level found to be 0.130. Trend Troponin levels. EKG revealed T-wave inversions. Cardiology consulted. Recs appreciated Echo with no WMAs Stress test as an outpatient per Cards T2DM with Hyperglycemia on presentation Patient presented with glucose > 500, not in DKA. Per ER documentation, patient's insulin supply ran out. Patient given IV insulin in the ED. Lantus at HS and add SSI per protocol. D/c Lantus given recurrent hypoglycemia despite Reduced dose. Patient's diet obviously much more restricted here than at home Monitor Accu-checks both AC and HS. A1c 11.4 on 05/08/201907/02- will restart lantus at a lower dose today 07/03- will increase lantus today ?? ABDIRASHID on CKD 3: resolved Patient presented with BUN of 21 and SCr of 1.31, up from 0.92 last month. Hydration with IVF Resolved. Off IVF Multiple pressure ulcers stage 2-3 POA Wound care c/s See media As above Obesity, BMI 31.21 Hypothyroidism Increased levothyroxine Follow up with PCP and repeat labs in 4-6 weeks ACP Full code Multiple admissions 2/2 noncompliance. SNF recommended last admission but patient and family ultimately declined. SW consulted for SNF placement. ?? Plan of care discussed with the primary nurse and cardiology. SHARON ORTEZ NP Cosigned by Anali Agrawal MD at 07/04/2019 2:40 PM CDT * Summer London, NIKOLAY-BC - 07/04/2019 10:07 AM CDT General Cardiology Progress Note/ Pre STAR note Patient being seen by Sunita Nails MD. Chief Complaint: Cardiology for pre STAR evaluation Iris Gil is a 64-year-old female who has 64-year-old female who has has Bilateral breast cancer, dementia, diabetes mellitus type 2 uncontrolled, peripheral vascular disease, hyperlipemia, schizophrenia??and hypertension.?She??was admitted on 06/28/2019 ??1:27 PM??for fall??and laceration to her left presybeterian.?She was found to have pinpoint pupils and received a dose of Narcan without significant response. ??She was hypothermic at 92.5F??and required the bare??hugger. ??She had hyperglycemia but no evidence of DKA so she was started on IV fluids.?Troponin was noted to be elevated at 0.135 but stayed stable. She needs a lower extremity angiogram and intervention for a nonhealing wound. She was found to have positive blood cultures for VRE from 07/02/19. Blood cultures from07/03/19 is pending. STAR is planned. Assessment/Plan Sepsis, Positive blood cultures, she is agreeable to proceed with STAR today to evaluate for endocarditis. Reviewed procedure with her. Elevated troponin??with an abnormal ECG. ??PEACE score of 2.??No real rise or fall??and troponin, peak of 0.135 to 0.124. Doubt ACS. Echocardiogram showed normal LVSF and no wall motion abnormality. Continues on aspirin 325 mg daily.?Suspect there is underlying coronary artery disease given her history of diabetes mellitus type 2, hypertension, hyperlipidemia and PVD. ??Could consider a stress test at some point for risk stratification. ?? Diabetes mellitus type 2 uncontrolled.?? Per others ?? Hypertension- blood pressure controlled. ? Hyperlipidemia. Continues on atorvastatin 40 mg daily. Subjective Resting quietly in bed and agrees to having STAR completed today . She denies chest pain and SOB. Review of Systems HENT: No Teeth Respiratory: Negative for cough and shortness of breath. Cardiovascular: Negative for chest pain and palpitations. Gastrointestinal: Remains NPO except for water with medications. Neurological: Negative for dizziness. Current Facility-Administered Medications: ??? acetaminophen (TYLENOL) tablet 650 mg, 650 mg, Oral, Q4H PRN, Savanna Ardon MD ??? aspirin tablet 325 mg, 325 mg, Oral, Daily, Savanna Ardon MD, 325 mg at 07/04/19 0959 ??? atorvastatin (LIPITOR) tablet 40 mg, 40 mg, Oral, Daily, Sunita Nails MD, 40 mg at 07/04/19 0959 ??? collagenase (SANTYL) ointment, , Topical, Daily, Loraine Penaloza MD ??? DAPTOmycin (CUBICIN) 600 mg in sodium chloride 0.9 % 100 mL IVPB, 10 mg/kg (Adjusted), Intravenous, Q24H, Bud Weir MD, Stopped at 07/03/19 1810 ??? dextrose (GLUTOSE) 40 % oral gel 15-30 g, 15-30 g, Oral, PRN, Loraine Penaloza MD, 30 g at 07/01/19 1546 ??? dextrose 10 % bolus infusion 125-250 mL, 125-250 mL, Intravenous, PRN, Loraine Penaloza MD ??? glucagon injection 1 mg, 1 mg, Intramuscular, Once PRN, Loraine Penaloza MD ??? insulin glargine (LANTUS) injection 5 Units, 5 Units, Subcutaneous, Nightly at bedtime, Sharon Ortez NP, 5 Units at 07/03/19 2157 ??? insulin lispro (HUMALOG) injection 0-16 Units, 0-16 Units, Subcutaneous, TID AC, Stopped at 07/04/19 0755 AND insulin lispro (HUMALOG) injection 0-8 Units, 0-8 Units, Subcutaneous, Nightly atbedtime, Savanna Ardon MD, 5 Units at 07/03/19 2156 ??? levothyroxine (SYNTHROID) tablet 75 mcg, 75 mcg, Oral, Daily, Sharon Ortez NP, 75 mcg at 07/04/19 0603 ??? nitroglycerin (NITROSTAT) SL tablet 0.4 mg, 0.4 mg, Sublingual, Q5 Min PRN, Savanna Ardon MD ??? ondansetron (ZOFRAN) injection 4 mg, 4 mg, Intravenous, Q8H PRN, Savanna Ardon MD ??? pantoprazole (PROTONIX) injection 40 mg, 40 mg, Intravenous, BID, Sharon Ortez NP, 40 mg at 07/04/19 0959 ??? polyethylene glycol (GLYCOLAX) packet 17 g, 17 g, Oral, Daily PRN, Savanna Ardon MD ??? sodium chloride 0.9% infusion, 250 mL, Intravenous, Continuous, Sharon Ortez NP, Last Rate: 10 mL/hr at 07/03/19 1402, 10 mL at 07/03/19 1402 Allergies Allergen Reactions ??? Codeine Nausea and Vomiting Objective Telemetry: NSR Bpm Filed Vitals: 07/03/19 1959 07/04/19 0035 07/04/19 0411 07/04/19 0711 BP: 125/58 111/78 116/81 134/57 Pulse: 83 80 80 73 Resp: 18 18 18 18 Temp: 98.8 ??F (37.1 ??C) 98.8 ??F (37.1 ??C) 98.8 ??F (37.1 ??C) 98.7 ??F (37.1 ??C) TempSrc: Oral Oral Oral Oral SpO2: 99% 98% 97% 96% Weight: 76.3 kg (168 lb 3.4 oz) Height: Intake/Output Summary (Last 24 hours) at 07/04/2019 1007 Last data filed at 07/04/2019 0035 Gross per 24 hour Intake 307.5 ml Output 300 ml Net 7.5 ml Last 5 Recorded Weights 06/30/19 0503 07/01/19 0450 07/02/19 0600 07/03/19 0309 Weight: 77.6 kg (171 lb 1.2 oz) 77.9 kg (171 lb 11.8 oz) 78 kg (172 lb) 78.3 kg (172 lb 9.6 oz) 07/04/19 0411 Weight: 76.3 kg (168 lb 3.4 oz) Physical Exam Constitutional: She appears well-developed and well-nourished. No distress. HENT: Head: Normocephalic and atraumatic. Mouth/Throat: Oropharynx is clear and moist. No teeth Eyes: Conjunctivae are normal. Neck: No JVD present. Cardiovascular: Normal rate and regular rhythm. Exam reveals no gallop. No murmur heard. Pulmonary/Chest: Effort normal and breath sounds normal. No respiratory distress. She has no wheezes. She has no rales. Abdominal: Soft. Bowel sounds are normal. She exhibits no distension. There is no tenderness. Musculoskeletal: She exhibits no edema. Neurological: She is alert. Skin: Skin is warm and dry. She is not diaphoretic. Psychiatric: She has a normal mood and affect. Her behavior is normal. Judgment and thought contentnormal. Data Reviewed Recent Labs Lab 07/02/19 1128 07/03/19 0751 07/04/19 0637 WBC 7.2 7.2 5.8 RBC 2.69* 1.91* 3.15* HGB 7.9* 5.6* 9.0* HCT 24.7* 17.7* 27.8* MCV 91.8 92.7 88.3 MCH 29.4 29.3 28.6 MCHC 32.0 31.6* 32.4 PLT 168 186 161 Recent Labs Lab 07/02/19 1128 07/03/19 0751 07/04/19 0637 NA 134* 133* 136 K 3.6 3.6 3.7 CL 97* 99* 100 CO2 32.8* 31.1 31.8 BUN 16 15 13 CR 0.87 0.91 0.85 GLU 290* 172* 137* BUNCREATININ 18.4 16.4 15.2 GFRNON 70* 67* 72* GFR 82* 77* 84* estimated creatinine clearance is 64 mL/min (based on SCr of 0.85 mg/dL). Recent Labs Lab 07/02/19 1128 07/03/19 0751 07/04/19 0637 CA 8.7 8.7 8.9 Recent Labs Lab 06/28/19 1426 07/04/19 0637 TP 8.1 7.0 ALB 2.9* 2.2* TBIL 0.5 0.5 ALKP 75 40* AST 28 24 ALT 39 22 No results for input(s): APTT, INR, PTT in the last 168 hours. Lab Results Component Value Date CHOL 201 (H) 06/29/2019 TRI 123 06/29/2019 HDL 84 06/29/2019 LDL 92 06/29/2019 HGBA1C 11.4 (H) 05/08/2019 TSH 20.700 (H) 06/29/2019 Recent Labs Lab 06/28/19 1426 06/28/19 1942 06/28/19 2134 06/29/19 0235 TROP 0.130* 0.124* 0.125* 0.135* Results for orders placed or performed during the hospital encounter of 06/28/19 (from the past 168hour(s)) CULTURE URINE Collection Time: 06/28/19 6:09 PM Result Value Ref Range Spec. Description URINE [facility] CATH Special Requests: NO SPECIAL REQUEST Culture Result: NO GROWTH 2 DAYS Results for orders placed or performed during the hospital encounter of 06/28/19 (from the past 168hour(s)) CULTURE, BACTERIA, BLOOD Collection Time: 07/03/19 1:49 PM Result Value Ref Range Spec. Description BLOOD-PEDIATRIC VOLUME Special Requests: NO SPECIAL REQUEST Culture Result: NO GROWTH 1 DAY CULTURE, BACTERIA, BLOOD Collection Time: 07/03/19 1:49 PM Result Value Ref Range Spec. Description BLOOD-PEDIATRIC VOLUME Special Requests: NO SPECIAL REQUEST Culture Result: NO GROWTH 1 DAY Imaging 07/02/19 MRI ANKLE RT WO CON: 1) Soft tissue ulceration involving the right heel with no evidence ofsoft tissue abscess. 2. No evidence of osteomyelitis. 4/19/20 ECHOCARDIOGRAM W CON: The left ventricular size is normal. The left ventricular systolic function is lower limits of normal. Estimated left ventricular ejection fraction is 50-55%. Moderate to severe concentric left ventricular hypertrophy. The left atrial size is moderately enlarged. Trivial pericardial effusion, without tamponade physiology. No significant valvular disease. ?? 06/28/19 CT cerv spine: 1. ??No acute traumatic injury identified. 2. ??Spondylosis as described. 3.??Bilateral carotid atherosclerosis. ?? 06/28/19 CT Head: ??No acute intracranial process identified. ??Stable cortical atrophy and small vessel disease. Left supraorbital scalp swelling. ?? 06/28/19 CXR: 1. No acute infiltrate demonstrated. 2. Mild cardiomegaly. 3. Old healed granulomatous disease. 4. Suboptimal exam. NBA LEAL Cosigned by Sunita Nails MD at 07/04/2019 3:58 PM CDT * Meche Martinez RN - 07/03/2019 11:10 PM CDT Patient is alert and orientated this shift. Patient is resting in bed stating she is going home tomorrow. * Sunita Nails MD - 07/03/2019 6:08 PM CDT General Cardiology Progress Note/ Pre STAR note Patient being seen by Sunita Nails MD. Chief Complaint: Cardiology for pre STAR evaluation Iris Gil is a 64-year-old female who has 64-year-old female who has has Bilateral breast cancer, dementia, diabetes mellitus type 2 uncontrolled, peripheral vascular disease, hyperlipemia, schizophrenia??and hypertension.?She??was admitted on 06/28/2019 ??1:27 PM??for fall??and laceration to her left presybeterian.?She was found to have pinpoint pupils and received a dose of Narcan without significant response. ??She was hypothermic at 92.5F??and required the bare??hugger. ??She had hyperglycemia but no evidence of DKA so she was started on IV fluids.?Troponin was noted to be elevated at 0.135 but stayed stable. She needs a lower extremity angiogram and intervention for a nonhealing wound. She was found to have positive blood cultures for VRE from 07/02/19. Blood cultures from07/03/19 is pending. Assessment/Plan Positive blood cultures. Spoke to patient regarding STAR. The Risks, side effects, benefits, alternatives as well as the consequences of not performing the STAR were discussed with the patient and/or family/personal assistance representative. The risks including pain, infection, bleeding, esophageal perforation,stroke, heart attack, , renal failure, aspiration pneumonia, hypotension, need for emergency surgery, allergic reaction, adverse arrhythmia, hypoxemia, among other risks were discussed. There islow likelihood of major complications but it is possible. Mrs. iGl told me absolutely NO! She did not even want to consider it. She said at one point someone tried to put a tube down her throat but ended up going down her nose. She says she has been through a lot. I told her she may have an infection in her heart and this could affect her treatment. She asked why hasn't it killed her yet? She wanted me to put sugar in her rice crispy cereal and feedit to her since she was unable to bend her arm. I asked her to think about it and I'd check with her tomorrow. Subjective Patient says we forgot about her and wants sugar and milk in her coffee. She denies chest pain and SOB. Review of Systems Respiratory: Negative for shortness of breath. Cardiovascular: Negative for chest pain. Gastrointestinal: Difficulty chewing foods, no difficulty swallowing Skin: Negative for rash. Current Facility-Administered Medications: ??? acetaminophen (TYLENOL) tablet 650 mg, 650 mg, Oral, Q4H PRN, Savanna Ardon MD ??? aspirin tablet 325 mg, 325 mg, Oral, Daily, Savanna Ardon MD, 325 mg at 07/03/19 0845 ??? atorvastatin (LIPITOR) tablet 40 mg, 40 mg, Oral, Daily, Sunita Nails MD, 40 mg at 07/03/19 0845 ??? collagenase (SANTYL) ointment, , Topical, Daily, Loraine Penaloza MD ??? DAPTOmycin (CUBICIN) 600 mg in sodium chloride 0.9 % 100 mL IVPB, 10 mg/kg (Adjusted), Intravenous, Q24H, Bud Weir MD, Last Rate: 200 mL/hr at 07/03/19 1736, 600 mg at 07/03/19 1736 ??? dextrose (GLUTOSE) 40 % oral gel 15-30 g, 15-30 g, Oral, PRN, Loraine Penaloza MD, 30 g at 07/01/19 1546 ??? dextrose 10 % bolus infusion 125-250 mL, 125-250 mL, Intravenous, PRN, Loraine Penaloza MD ??? glucagon injection 1 mg, 1 mg, Intramuscular, Once PRN, Loraine Penaloza MD ??? insulin glargine (LANTUS) injection 5 Units, 5 Units, Subcutaneous, Nightly at bedtime, Sharon Ortez NP ??? insulin lispro (HUMALOG) injection 0-16 Units, 0-16 Units, Subcutaneous, TID AC, 6 Units at 07/03/19 0845 AND insulin lispro (HUMALOG) injection 0-8 Units, 0-8 Units, Subcutaneous, Nightly atbedtime, Savanna Ardon MD, 8 Units at 07/02/19 2110 ??? [START ON 07/04/2019] levothyroxine (SYNTHROID) tablet 75 mcg, 75 mcg, Oral, Daily, Shraon Ortez NP ??? nitroglycerin (NITROSTAT) SL tablet 0.4 mg, 0.4 mg, Sublingual, Q5 Min PRN, Savanna Ardon MD ??? ondansetron (ZOFRAN) injection 4 mg, 4 mg, Intravenous, Q8H PRN, Savanna Ardon MD ??? pantoprazole (PROTONIX) injection 40 mg, 40 mg, Intravenous, BID, Sharon Ortez NP, 40 mg at 07/03/19 1402 ??? polyethylene glycol (GLYCOLAX) packet 17 g, 17 g, Oral, Daily PRN, Savanna Ardon MD ??? sodium chloride 0.9% infusion, 250 mL, Intravenous, Continuous, Sharon Ortez NP, Last Rate: 10 mL/hr at 07/03/19 1402, 10 mL at 07/03/19 1402 Allergies Allergen Reactions ??? Codeine Nausea and Vomiting Objective Telemetry: NSR Bpm Filed Vitals: 07/03/19 1228 07/03/19 1500 07/03/19 1515 07/03/19 1612 BP: 121/53 129/49 116/50 118/62 Pulse: 78 78 75 76 Resp: 18 18 18 18 Temp: 99 ??F (37.2 ??C) 98.1 ??F (36.7 ??C) 98.2 ??F (36.8 ??C) 98.4 ??F (36.9 ??C) TempSrc: Oral Oral Oral Oral SpO2: 95% 97% 96% 99% Weight: Height: Intake/Output Summary (Last 24 hours) at 07/03/2019 1808 Last data filed at 07/03/2019 1703 Gross per 24 hour Intake 807.5 ml Output -- Net 807.5 ml Last 5 Recorded Weights 06/28/19 1344 06/30/19 0503 07/01/19 0450 07/02/19 0600 Weight: 77.4 kg (170 lb 10.2 oz) 77.6 kg (171 lb 1.2 oz) 77.9 kg (171 lb 11.8 oz) 78 kg (172 lb) 07/03/19 0309 Weight: 78.3 kg (172 lb 9.6 oz) Physical Exam Data Reviewed Recent Labs Lab 07/01/19 0951 07/02/19 1128 07/03/19 0751 WBC 7.8 7.2 7.2 RBC 2.95* 2.69* 1.91* HGB 8.7* 7.9* 5.6* HCT 26.9* 24.7* 17.7* MCV 91.2 91.8 92.7 MCH 29.5 29.4 29.3 MCHC 32.3 32.0 31.6* PLT 191 168 186 Recent Labs Lab 07/01/19 0951 07/02/19 1128 07/03/19 0751 NA 136 134* 133* K 3.7 3.6 3.6 CL 99* 97* 99* CO2 31.5 32.8* 31.1 BUN 20* 16 15 CR 0.95 0.87 0.91 GLU 93 290* 172* BUNCREATININ 21.1 18.4 16.4 GFRNON 63* 70* 67* GFR 73* 82* 77* estimated creatinine clearance is 60.5 mL/min (based on SCr of 0.91 mg/dL). Recent Labs Lab 07/01/19 0951 07/02/19 1128 07/03/19 0751 CA 8.9 8.7 8.7 Recent Labs Lab 06/28/19 1426 TP 8.1 ALB 2.9* TBIL 0.5 ALKP 75 AST 28 ALT 39 No results for input(s): APTT, INR, PTT in the last 168 hours. Lab Results Component Value Date CHOL 201 (H) 06/29/2019 TRI 123 06/29/2019 HDL 84 06/29/2019 LDL 92 06/29/2019 HGBA1C 11.4 (H) 05/08/2019 TSH 20.700 (H) 06/29/2019 Recent Labs Lab 06/28/19 1426 06/28/19 1942 06/28/19 2134 06/29/19 0235 TROP 0.130* 0.124* 0.125* 0.135* Results for orders placed or performed during the hospital encounter of 06/28/19 (from the past 168hour(s)) CULTURE URINE Collection Time: 06/28/19 6:09 PM Result Value Ref Range Spec. Description URINE [facility] CATH Special Requests: NO SPECIAL REQUEST Culture Result: NO GROWTH 2 DAYS Results for orders placed or performed during the hospital encounter of 06/28/19 (from the past 168hour(s)) CULTURE, BACTERIA, BLOOD Collection Time: 07/03/19 1:49 PM Result Value Ref Range Spec. Description BLOOD-PEDIATRIC VOLUME Special Requests: NO SPECIAL REQUEST Culture Result: PENDING CULTURE, BACTERIA, BLOOD Collection Time: 07/03/19 1:49 PM Result Value Ref Range Spec. 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 Impression: IMPRESSION: 1) Soft tissue ulceration involving the right heel with no evidence of soft tissue abscess. 2. No evidence of osteomyelitis. Echo on 06/30/19 The left ventricular size is normal. The left ventricular systolic function is lower limits of normal. Estimated left ventricular ejection fraction is 50-55%. Moderate to severe concentric left ventricular hypertrophy. The left atrial size is moderately enlarged. Trivial pericardial effusion, without tamponade physiology. No significant valvular disease. SUNITA NAILS MD * ONIEL Puentes - 07/03/2019 2:00 PM CDT 07/03/19 1359 Therapy Visit Reason for admission acute encephalopathy, elevated troponins Comorbidities Relevant to OT SEPSIS, DM, HTN, SCHIZOPHRENIA, HYPOTHERMC, BREAST CA Ordering Provider Carmicheal Subjective Subjective Room 440. Hold therapy this date 2/2 HGB low (5.6); Will follow up at later time/date asappropriate for OT tx session * Rizwana Robles PTA - 07/03/2019 1:18 PM CDT 07/03/19 1300 Therapy Visit Ordering Provider Duglas Dorman 440. No therapy this date due to low hgb, Will check on patient at later time/date. Reason for admission acute encephalopathy, elevated troponins * Bud Weir MD - 07/03/2019 12:43 PM CDT Blood cultures reviewed, will repeat and change to Daptomycin. Chart reviewed, please call with questions. * Sharon Ortez NP - 07/03/2019 12:02 PM CDT Hospitalist Daily Progress Note Subjective Ms Gil is resting in bed eating when seen and examined upon rounds this am. She tells me she isvery hungry this am. She is noted to have a low hgb today- she denies any hematochezia, melena, hematuria, hematemesis. Wounds dressed with bandages CDI. She denies CP/SOB, fever/chills, n/v/d, palpitations. Objective Filed Vitals: 07/02/19 1929 07/02/19 2325 07/03/19 0309 07/03/19 0907 BP: (!) 153/63 138/48 127/55 129/66 Pulse: 75 80 76 74 Resp: 18 Temp: 97.5 ??F (36.4 ??C) 98 ??F (36.7 ??C) 97.7 ??F (36.5 ??C) 97.9 ??F (36.6 ??C) TempSrc: Oral Oral Oral Oral SpO2: 99% 98% 98% 95% Weight: 78.3 kg (172 lb 9.6 oz) Height: Intake/Output 24H Total: Intake/Output Summary (Last 24 hours) at 07/03/2019 1203 Last data filed at 07/03/2019 0622 Gross per 24 hour Intake 500 ml Output -- Net 500 ml Physical Exam: -GENERAL: No acute distress, Well nourished -HEAD: Normocephalic, Atraumatic -EYES: Extraocular movements intact -LUNGS: Effort normal, CTAB -CVS: RRR -NEURO: Awake, alert, oriented to self and time, No gross neuro deficits -SKIN: bandages to LLE CDI -PSYCH: pleasant and cooperative Medications ??? aspirin 325 mg Oral Daily ??? atorvastatin 40 mg Oral Daily ??? collagenase Topical Daily ??? insulin lispro 0-16 Units Subcutaneous TID AC And ??? insulin lispro 0-8 Units Subcutaneous Nightly at bedtime ??? levothyroxine 50 mcg Oral Daily ??? pantoprazole 40 mg Intravenous BID ??? vancomycin 1,250 mg Intravenous Q12H ??? sodium chloride acetaminophen, dextrose, dextrose 10 % bolus, glucagon, nitroglycerin, ondansetron, polyethylene glycol Labs, Imaging, Other Studies Recent Labs Lab 06/28/19 1426 06/29/19 1352 06/30/19 0645 07/01/19 0951 07/02/19 1128 07/03/19 0751 WBC 6.8 7.8 8.3 7.8 7.2 7.2 RBC 3.47* 3.04* 2.81* 2.95* 2.69* 1.91* HGB 10.2* 9.0* 8.3* 8.7* 7.9* 5.6* HCT 30.8* 27.5* 25.5* 26.9* 24.7* 17.7* MCV 88.8 90.5 90.7 91.2 91.8 92.7 MCH 29.4 29.6 29.5 29.5 29.4 29.3 MCHC 33.1 32.7 32.5 32.3 32.0 31.6* PLT 267 220 213 191 168 186 RDW 14.7* 15.1* 15.1* 15.4* 15.5* 15.2* MPV 11.0 9.8 10.5 10.2 10.4 10.4 PERNEU 74.0 79.7 76.2 77.8 78.9 70.5 PERLYM 16.1 12.2 15.4 13.6 11.7 17.7 PERMON 6.2 4.9 5.3 5.5 6.4 8.6 LYMC 1.09 0.95* 1.28 1.06 0.84* 1.28 MONOC 0.42 0.38 0.44 0.43 0.46 0.62 EOSC 0.07 0.12 0.14 0.12 0.15 0.16 BASOC 0.04 0.04 0.05 0.03 0.02 0.02 DTYPE AUTOMATED DIFFERENTIAL AUTOMATED DIFFERENTIAL AUTOMATED DIFFERENTIAL AUTOMATED DIFFERENTIAL AUTOMATED DIFFERENTIAL AUTOMATED DIFFERENTIAL Recent Labs Lab 06/28/19 1426 06/29/19 1352 06/30/19 0645 07/01/19 0951 07/02/19 1128 NA 133* 136 137 136 134* K 4.1 3.5 3.5 3.7 3.6 CL 92* 98* 101 99* 97* CO2 33.3* 31.9 29.0 31.5 32.8* AGAP 7.7 6.1 7.0 5.5 4.2* BUN 26* 30* 27* 20* 16 CR 1.31* 1.08* 0.92 0.95 0.87 BUNCREATININ 19.8 27.8* 29.3* 21.1 18.4 GFRNON 43* 54* 66* 63* 70* GFR 50* 63* 76* 73* 82* GLU 570* 229* 46* 93 290* CA 9.5 8.9 8.5 8.9 8.7 TP 8.1 -- -- -- -- ALB 2.9* -- -- -- -- TBIL 0.5 -- -- -- -- ALKP 75 -- -- -- -- AST 28 -- -- -- -- ALT 39 -- -- -- -- Recent Labs Lab 06/29/19 1352 CHOL 201* TRI 123 HDL 84 LDL 92 TSH 20.700* No results for input(s): APTT, INR, PTT in the last 168 hours. Recent Labs Lab 06/28/19 1426 06/28/19 1942 06/28/19 2134 06/29/19 0235 TROP 0.130* 0.124* 0.125* 0.135* CPK 152 -- -- -- Recent Labs Lab 06/28/19 1824 06/29/19 0009 LACTICACID 3.7* 2.9* No results for input(s): PH, PCO2, PO2, [id number], BICARBWB, BASEDEFICIT, BASEEXCESS in the [id number] hours. No results found for this or any previous visit. Imaging Ct Cerv Spine Wo Con Result Date: [...] By: Xavier Costa MD, 06/28/2019 3:[address] Head Wo Con Result Date: 06/05/2019 CT OF THE BRAIN WITHOUT CONTRAST INDICATION: Confusion/delirium, altered LOC, unexplained TECHNIQUE: CT of the brain was performed without contrast. A dose lowering technique was used for this procedure, which may include, but is not limited to, dose reduction techniques, automated exposure control, the use of a iterative reconstruction, and ALARA (as low as reasonably achievable)/image gently techniques. . COMPARISON: There are no prior studies. FINDINGS: Images are somewhat compromised due tomotion. The posterior fossa structures show mild atrophy with chronic ischemic changes. In the region of the basal ganglia calcifications which appear chronic. The temporal fossa and the frontal fossa is unremarkable. There is mild atrophy with chronic ischemic changes. No acute extra-axial fluid. There is no midline shift. The detail of the osseous structures is somewhat limited because of motion. No definite acute bony abnormalities. IMPRESSION: Limited study due to motion. No evidence of intracranial hemorrhage or other definite acute abnormalities. Mild atrophy with chronic ischemic changes. Xr Chest Portable Result Date: 06/28/2019 Examination: [...] Old healed granulomatous disease. 4. Suboptimal exam. Xr Chest Portable Result Date: 06/05/2019 Examination: Chest x-ray 1 view Exam date/time: 06/05/2019 3:58 PM Reason For Exam: weakness Comparison: Old radiographs are from March 2010 Technique: Upright AP view of the chest demonstrated. Findings: Heart size is borderline. Mediastinum shows small calcifications in theaortic arch. Chronic large calcified granuloma in the right paratracheal region. In the left upper l obe there is a bandlike density which may represent atelectasis and scar tissue which is different than before. In the remainder of the lungs there are no focal infiltrates. Please correlate clinically. If the patient has any respiratory symptoms follow-up chest radiographs recommended in one to 2 weeks to reevaluate the left upper lobe. Osseous structures are intact. =====IMPRESSION:===== Borderline cardiomegaly and chronic calcified granuloma. In the left upper lobe there is a bandlike linear density which may be atelectasis and scar tissue rather than acute inflammation. The remainder of the lungs show no focal infiltrates. : Results for orders placed or performed during the hospital encounter of 06/28/19 [address] 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: [place] : 1955 Requested By: AMANDA MOORE Order Number: [id number] Reading MD: Jonatan Aldrich Measurements Intervals [place] Rate: 70 P: 54 MO: 168 QRS: -43 QRSD: 117 T: 127 QT: 435 QTc: 470 Interpretive Statements SINUS RHYTHM MARKED LEFT AXIS DEVIATION POSSIBLE ANTERIOR MYOCARDIAL INFARCTION, OF INDETERMINATE AGE MODERATE T-WAVE ABNORMALITY, CONSIDER LATERAL ISCHEMIA Compared to ECG 06/05/2019 14:03:27 T-wave abnormality now present Possible ischemia now present Left anterior fascicular block no longer present ST (T wave) deviation no longer present Myocardial infarct finding still present Assessment & Plan Polymicrobial Bacteremia MRSA, E faecalis 2/2 multiple wounds ID consulted, appreciate recs Continue vanc, follow renal function, pharmacy to dose (abx day 6) TTE obtained, may need to consider obtaining STAR if persistently positive blood cx Repeat blood cx reveal 1/2 bottles with VRE, follow with ID recs PVD With nonhealing wounds to LLE Vascular consulted, appreciate recs Will need LLE arteriogram with possible intervention Anemia Hgb 7.9 > now 5.6 Baseline appears to be near 9 Suspect 2/2 wounds, c/b component of underlying CKD Iron studies and folate WNL Check guaiac Start PPI BID Transfuse 1u pRBC today Consult GI pending guaiac results Severe Sepsis without Shock Patient was found to be hypothermic in the ED with temperature of 93.9F and hypotension (pressure 89/56 mmHg which improved with IVF). Vancomycin and Cefepime were initiated for broad coverage, Monitor Cr, vanc trough (now monotherapyvanc) Source: skin given multiple ulcers found on exam Blood cx 1/2 with MRSA and Enterococcus and MRSA, see below D/c IVF Monitor VS closely, hemodynamically stable ID consulted. Recs appreciated Repeat blood cx pending Vascular surgery consulted, appreciate recs Acute Metabolic Encephalopathy: resolved Due to multiple causes, including infection, hyperglycemia, ABDIRASHID, NSTEMI. CT of the Head performed in the ED revealed no acute intracranial process; stable cortical atrophy and small vessel disease with left supraorbital scalp swelling. Treat as noted above and monitor mental status. Hold off on MRI and carotid Doppler study ordered as likely metabolic encephalopathy Elevated Troponin Initial Troponin level found to be 0.130. Trend Troponin levels. EKG revealed T-wave inversions. Cardiology consulted. Recs appreciated Echo with no WMAs Stress test as an outpatient per Cards T2DM with Hyperglycemia on presentation Patient presented with glucose > 500, not in DKA. Per ER documentation, patient's insulin supply ran out. Patient given IV insulin in the ED. Lantus at HS and add SSI per protocol. D/c Lantus given recurrent hypoglycemia despite Reduced dose. Patient's diet obviously much more restricted here than at home Monitor Accu-checks both AC and HS. A1c 11.4 on 05/08/201907/02- will restart lantus at a lower dose today ?? ABDIRASHID on CKD 3: resolved Patient presented with BUN of 21 and SCr of 1.31, up from 0.92 last month. Hydration with IVF Resolved. Off IVF Follow labs Multiple pressure ulcers stage 2-3 POA Wound care c/s See media As above Obesity, BMI 31.21 Hypothyroidism Increased levothyroxine Follow up with PCP and repeat labs in 4-6 weeks ACP Full code Multiple admissions 2/2 noncompliance. SNF recommended last admission but patient and family ultimately declined. SW consulted for SNF placement. ?? Plan of care discussed with the primary nurse and ID. SHARON ORTEZ NP Cosigned by Anali Agrawal MD at 07/03/2019 2:47 PM CDT * Joleen Juarez PharmD - 07/03/2019 11:41 AM CDT Date/Time Alert Result: 07/03/2019 11:39 AM Organism isolated: Vancomycin resistant Enterococcus faecalis Active antibiotic orders prior to intervention: Vancomycin Microbiology reported a verigene result on this patient growing VRE in 1/2 blood cultures. Patient is currently on vancomycin. Passed off to floor pharmacist to determine antibiotic therapy with hospitalist. * BELA Oglesby - 07/03/2019 11:17 AM CDT Pt is not medically stable this date but per Katie at [facility] is accepted to come there once medically stable. They can accept with iv vanco q 12 but if that were to change will need to verify that they can accommodate. Sw will follow with Katie [facility] to update when discharge date known and update/coordinate with family at that time as well. * Rene Vogel, JoseeD, [facility] - 07/03/2019 10:44 AM CDT Vancomycin Pharmacy to Dose Day #6 Ordering Provider: Dr. Ardon Indication: Sepsis Goal Trough: 15-20 mcg/ml Ht/Wt: 5' 2 77.4kg Date WBC SCr CrCl Tmax Trough 06/27 6.8 1.31 41.8 97.6 06/28 97.6 06/29 8.3 0.92 59.6 97.4 06/30 7.8 0.95 57 98.4 32.9 (drawn during vanc administration) 07/01 7.2 0.87 63 97.8 14.6 (drawn ~ 10 h early) 07/02 7.2 --- --- 98.0 Other Antibiotics: - none Imaging: - CXR (06/27): no acute infiltrate demonstrated - CT head (06/27): No acute intracranial process identified. Cultures: - Blood (06/27) : MRSA in 1/2 (S- tetracycline, bactrim, vanc) and enterococcus faecalis (S- ampicillin, penicillin, linezolid) and Staph spp. in 1/2 - Urine (06/27): NGTD A/P: Vancomycin day 6 for Sepsis. PMH significant for diabetes, hypertension, and schizophrenia. The patient was admitted through the ED after experiencing a fall at home. Bcx positive for MRSA in 1/2. Repeating Bcx per ID. Initial vancomycin level was elevated as it was drawn while the dose was being administered. Repeat level drawn early so true trough would be lower. Will continue vanco unchanged at 1250mg every 12 hours. The next trough will be checked prior to 4th dose of new regimen (07/03 @ 0330), goal remains 15-20. * Khalif Guy MD - 07/03/2019 10:26 AM CDT Iris Gil is a 64-year-old female Subjective: No complaints. Does not wish to have intervention at this time. Current Facility-Administered Medications Medication Dose Route Frequency Provider Last Rate Last Dose ??? acetaminophen (TYLENOL) tablet 650 mg 650 mg Oral Q4H PRN Savanna Ardon MD ??? aspirin tablet 325 mg 325 mg Oral Daily Savanna Ardon MD 325 mg at 07/03/19 0845 ??? atorvastatin (LIPITOR) tablet 40 mg 40 mg Oral Daily Sunita Nails MD 40 mg at 07/03/19 0845 ??? collagenase (SANTYL) ointment Topical Daily Loraine Penaloza MD ??? dextrose (GLUTOSE) 40 % oral gel 15-30 g 15-30 g Oral PRN Loraine Penaloza MD 30 g at 07/01/19 1546 ??? dextrose 10 % bolus infusion 125-250 mL 125-250 mL Intravenous PRN Loraine Penaloza MD ??? glucagon injection 1 mg 1 mg Intramuscular Once PRN Loraine Penaloza MD ??? insulin lispro (HUMALOG) injection 0-16 Units 0-16 Units Subcutaneous TID AC Savanna Ardon MD 6 Units at 07/03/19 0845 And ??? insulin lispro (HUMALOG) injection 0-8 Units 0-8 Units Subcutaneous Nightly at bedtime Savanna Ardon MD 8 Units at 07/02/19 2110 ??? levothyroxine (SYNTHROID) tablet 50 mcg 50 mcg Oral Daily Savanna Ardon MD 50 mcg at 07/03/19 0453 ??? nitroglycerin (NITROSTAT) SL tablet 0.4 mg 0.4 mg Sublingual Q5 Min PRN Savanna Ardon MD ??? ondansetron (ZOFRAN) injection 4 mg 4 mg Intravenous Q8H PRN Savanna Ardon MD ??? pantoprazole (PROTONIX) injection 40 mg 40 mg Intravenous BID Sharon Ortez NP ??? polyethylene glycol (GLYCOLAX) packet 17 g 17 g Oral Daily PRN Savanna Ardon MD ??? sodium chloride 0.9% infusion 250 mL Intravenous Continuous Sharon Ortez NP ??? vancomycin (VANCOCIN) 1,250 mg in sodium chloride 0.9 % 250 mL IVPB 1,250 mg Intravenous Q12H Savanna Ardon MD Stopped at 07/03/19 0622 Allergies Allergen Reactions ??? Codeine Nausea and Vomiting Review of Systems Constitutional: Negative. Respiratory: Negative. Cardiovascular: Positive for leg swelling. Gastrointestinal: Negative. Musculoskeletal: Positive for myalgias. Skin: Positive for wound. Objective: I/O last 3 completed shifts: In: 920 [P.O.:420; I.V.:500] Out: - Blood pressure 129/66, pulse 74, temperature 97.9 ??F (36.6 ??C), temperature source Oral, resp. rate 18, height 5' 2 (1.575 m), weight 78.3 kg (172 lb 9.6 oz), SpO2 95 %. Physical Exam Lab Results Component Value Date NA 134 (L) 07/02/2019 K 3.6 07/02/2019 CL 97 (L) 07/02/2019 CO2 32.8 (H) 07/02/2019 AGAP 4.2 (L) 07/02/2019 BUN 16 07/02/2019 CR 0.87 07/02/2019 BUNCREATININ 18.4 07/02/2019 GFRNON 70 (L) 07/02/2019 GFR 82 (L) 07/02/2019 GLU 290 (H) 07/02/2019 CA 8.7 07/02/2019 Lab Results Component Value Date WBC 7.2 07/03/2019 HGB 5.6 (LL) 07/03/2019 PLT 186 07/03/2019 Lab Results Component Value Date CHOL 201 (H) 06/29/2019 TRI 123 06/29/2019 HDL 84 06/29/2019 TP 8.1 06/28/2019 ALB 2.9 (L) 06/28/2019 ALT 39 06/28/2019 HGBA1C 11.4 (H) 05/08/2019 TSH 20.700 (H) 06/29/2019 Active Problems: Encephalopathy acute SNOMED CT(R): DISORDER OF BRAIN Elevated troponin SNOMED CT(R): PROTEIN LEVEL - FINDING Essential hypertension SNOMED CT(R): ESSENTIAL HYPERTENSION Mixed hyperlipidemia SNOMED CT(R): MIXED HYPERLIPIDEMIA Plan: Plan for lower extremity angiogram and intervention if patient agreeable to proceed with the procedure. KHALIF GUY MD 07/03/2019 * Anne Crzu RN - 07/02/2019 10:48 PM CDT Problem: Reduced risk for falls/injury Goal: Reduced Risk for Falls/Injury Outcome: Progressing Problem: Pain Goal: Patient's pain/discomfort is manageable Description Assess and monitor patient's pain using appropriate pain scale. Collaborate with interdisciplinary team and initiate plan and interventions as ordered. Re-assess patient's pain level 30 - 60 minutes after pain management intervention. Outcome: Progressing Problem: Safety Goal: Patient will be injury free during hospitalization Description Assess and monitor vitals signs, neurological status including level of consciousness and orientation. Assess patient's risk for falls and implement fall prevention plan of care and interventions perhospital policy. Ensure arm band on, uncluttered walking paths in room, adequate room lighting, call light and overbed table within reach, bed in low position, wheels locked, side rails up per policy, and non-skid footwear provided. Outcome: Progressing Problem: Daily Care Goal: Daily care needs are met Description Assess and monitor ability to perform self care and identify potential discharge needs. Outcome: Progressing Problem: Psychosocial Needs Goal: Demonstrates ability to cope with hospitalization/illness Description Assess and monitor patients ability to cope with his/her illness. Outcome: Progressing Goal: Collaborate with patient/family/caregiver to identify patient specific goals for this hospitalization Outcome: Progressing Problem: Discharge Barriers Goal: Patient's discharge needs are met Description Collaborate with interdisciplinary team and initiate plans and interventions as needed. Outcome: Progressing * Linda Hartley PharmD - 07/02/2019 3:58 PM CDT Vancomycin Pharmacy to Dose Day #5 Ordering Provider: Dr. Ardon Indication: Sepsis Goal Trough: 15-20 mcg/ml Ht/Wt: 5' 2 77.4kg Dose/Frequency: 1500mg q24h Date WBC SCr CrCl Tmax Trough 06/27 6.8 1.31 41.8 97.6 06/28 97.6 06/29 8.3 0.92 59.6 97.4 06/30 7.8 0.95 57 98.4 32.9 (drawn during vanc administration) 07/01 7.2 0.87 63 97.8 14.6 (drawn ~ 10 h early) Other Antibiotics: - none Imaging: - CXR (06/27): no acute infiltrate demonstrated - CT head (06/27): No acute intracranial process identified. Cultures: - Blood (06/27) : MRSA in 1/2 (S- tetracycline, bactrim, vanc) and enterococcus faecalis (S- ampicillin, penicillin, linezolid) and Staph spp. in 1/2 - Urine (06/27): NGTD A/P: Pharmacy to dose vancomycin for this 64 YOF for sepsis. PMH significant for diabetes, hypertension,and schizophrenia. The patient was admitted through the ED after experiencing a fall at home. Bcx positive for MRSA in 03/14. Repeating Bcx per ID. Regimen started at 1500mg q24h with initial trough scheduled prior to the fourth dose (06/30). Elevated vanc level on 06/30 due to early lab draw (trough drawn as vanc was being given). Repeat trough today resulted at 14.6 (drawn 10 hrs early today at 11:28. Anticipate true trough would be even lower.) Will increase vanc to 1250 mg q12h considering improved renal fxn and subtherapeutic random vanc l evel. Next trough prior to 4th dose of new regimen (07/03 @ 0330). * Bud Weir MD - 07/02/2019 3:38 PM CDT Infectious Diseases Follow up Note Subjective: Patient seen and examined, No new complains. Comfortable. Objective: Filed Vitals: 07/01/19 2310 07/02/19 0600 07/02/19 0818 07/02/19 1055 BP: 101/80 98/80 142/53 127/41 Pulse: 58 57 73 69 Resp: Temp: 97.7 ??F (36.5 ??C) 97.7 ??F (36.5 ??C) 97.8 ??F (36.6 ??C) 97.7 ??F (36.5 ??C) TempSrc: Oral Oral Oral Oral SpO2: 97% 98% 93% 100% Weight: 78 kg (172 lb) Height: ROS: Denies any abdominal pain, no nausea, no SOB. All other systems were assessed and were negative forany symptoms. Physical exam: General physical exam not in any apparent distress. 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 Labs: Recent Labs Lab 06/30/19 0645 07/01/19 0951 07/02/19 1128 WBC 8.3 7.8 7.2 RBC 2.81* 2.95* 2.69* HGB 8.3* 8.7* 7.9* HCT 25.5* 26.9* 24.7* MCV 90.7 91.2 91.8 MCH 29.5 29.5 29.4 MCHC 32.5 32.3 32.0 PLT 213 191 168 RDW 15.1* 15.4* 15.5* MPV 10.5 10.2 10.4 PERNEU 76.2 77.8 78.9 PERLYM 15.4 13.6 11.7 PERMON 5.3 5.5 6.4 LYMC 1.28 1.06 0.84* MONOC 0.44 0.43 0.46 EOSC 0.14 0.12 0.15 BASOC 0.05 0.03 0.02 DTYPE AUTOMATED DIFFERENTIAL AUTOMATED DIFFERENTIAL AUTOMATED DIFFERENTIAL Recent Labs Lab 06/28/19 1426 06/30/19 0645 07/01/19 0951 07/02/19 1128 NA 133* < > 137 136 134* K 4.1 < > 3.5 3.7 3.6 CL 92* < > 101 99* 97* CO2 33.3* < > 29.0 31.5 32.8* AGAP 7.7 < > 7.0 5.5 4.2* BUN 26* < > 27* 20* 16 CR 1.31* < > 0.92 0.95 0.87 BUNCREATININ 19.8 < > 29.3* 21.1 18.4 GFRNON 43* < > 66* 63* 70* GFR 50* < > 76* 73* 82* GLU 570* < > 46* 93 290* CA 9.5 < > 8.5 8.9 8.7 TP 8.1 -- -- -- -- ALB 2.9* -- -- -- -- TBIL 0.5 -- -- -- -- ALKP 75 -- -- -- -- AST 28 -- -- -- -- ALT 39 -- -- -- -- < > = values in this interval not displayed. Invalid input(s): LACTATE, PROCALCITONIN Microbiology: Blood: Results for orders placed or performed during the hospital encounter of 06/28/19 (from the past 168hour(s)) CULTURE, BACTERIA, BLOOD Collection Time: 06/28/19 6:24 PM Result Value Ref Range Spec. Description BLOOD Special Requests: NO SPECIAL REQUEST Gram Stain Result GRAM POSITIVE COCCI RESEMBLING STAPHYLOCOCCUS SPECIES Gram Stain Result GRAM STAIN CALLED TO AND REPEATED BACK BY MANJINDER SRINIVASAN RN, AT 1215, 06/30/19. [facility] Culture Result: (AA) GROWTH OF STAPH. SPECIES NOT STAPH. AUREUS SUSCEPTIBILTY NOT ROUTINELY PERFORMED. SAVING ISOLATE FOR 5 DAYS. CONTACT MICROBIOLOGY DEPARTMENT IF FURTHER WORKUP IS INDICATED. CULTURE, BACTERIA, BLOOD Collection Time: 06/28/19 6:24 PM Result Value Ref Range Spec. Description BLOOD Special Requests: NO SPECIAL REQUEST Gram Stain Result GRAM POSITIVE COCCI RESEMBLING STREPTOCOCCUS SPECIES Gram Stain Result GRAM STAIN CALLED TO AND REPEATED BACK BY ROLF DURBIN RN, AT 1335, 06/29/19. DJ Culture Result: (AA) METHICILLIN RESISTANT STAPHYLOCOCCUS AUREUS DETECTED BY VERIGENE NUCLEIC ACID TEST FOLLOW ISOLATION PROTOCOL. Culture Result: (AA) ENTEROCOCCUS FAECALIS DETECTED BY VERIGENE NUCLEIC ACID TEST NO RESISTANCE MARKERS DETECTED BY VERIGENE NUCLEIC ACID TEST. Culture Result: CALLED RN FOR MRSA ELOISECOL ROLF FISHMANOSTER. PHARMACY CALLED AT [phone] FOR VERIGENE RESULTS TALKED TO AJ HAYWARD. Culture Result: (AA) GROWTH OF METHICILLIN RESISTANT STAPHYLOCOCCUS AUREUS FOLLOW ISOLATION PROTOCOL. CALLED TO AND REPEATED BACK BY ANNE DE OLIVEIRA AT 0732 CLW 07/01/2019 Culture Result: (AA) GROWTH OF ENTEROCOCCUS FAECALIS IF PATIENT IS PENICILLIN ALLERGIC, CONTACT THE MICROBIOLOGY DEPARTMENT FOR READILY AVAILABLE VANCOMYCIN SUSCEPTIBILITY. Susceptibility Enterococcus faecalis - MICHAEL (VITEK) AMPICILLIN <=2 Sensitive GENT. SYNERGY SCREEN Resistant PENICILLIN G 2 Sensitive LINEZOLID 1 Sensitive Methicillin resistant staphylococcus aureus - MICHAEL (VITEK) CLINDAMYCIN >=8 Resistant ERYTHROMYCIN >=8 Resistant OXACILLIN >=4 Resistant TRIMETH-SULFAMETH. <=10 Sensitive TETRACYCLINE <=1 Sensitive VANCOMYCIN 1 Sensitive Urine: Results for orders placed or performed during the hospital encounter of 06/28/19 (from the past 168hour(s)) CULTURE URINE Collection Time: 06/28/19 6:09 PM Result Value Ref Range Spec. Description URINE KAP[place]AN CATH Special Requests: NO SPECIAL REQUEST Culture Result: NO GROWTH 2 DAYS Imagin D Echo reviewed from 05/01 Ct head reviewed. ? ASSESSMENT & PLAN: ?? Polymicrobial bacteremia: Blood cultures with MRSA, E faecalis (susceptible to Ampicillin)Urine with NG in culture although UA with WBCs. ?? Source? Possible leg wounds. superficial head laceration from fall. No chest infiltrate. will repeat blood cultures. ?? MRI Left Tibia and Fibula 01/08 NO Osteomyelitis. - 2D echo reviewed, DM type 2 ABDIRASHID, creatinine improved Hypothyroidism Multiple pressure ulcers ?? Today's updated plan: Seen by Dr. Guy, plan for LE arteriogram and intervention if possible. Repeat blood cultures in process, continue Vancomycin for now and follow. Afebrile, WBC count WNl. BUD WEIR MD 07/02/2019 * Deisy Sanz, PRODUCT DEVELOPMENT ASSISTANT - 07/02/2019 3:25 PM CDT 07/02/19 1500 Therapy Visit Ordering Provider [facility] ROOM 44O . PT NOT SEEN THIS PM DUE TO BEING OUT OF ROOM FOR MRI. CHECKED ON PT SEVERAL TIMES TO SEE IS SHE IS BACK. WILL CHECK AT LATER TIMEAND DATE . Reason for admission acute encephalopathy, elevated troponins Relevant Comorbidities/ Personal Factors to PT PMH: HTN, HLD, breast CA, DM2, schizophrenia, PVD, dementia * Sharon Raineysydney, ROLL PLUGGER MACHINE OPERATOR - 07/02/2019 12:10 PM CDT Hospitalist Daily Progress Note Subjective Ms Gil is resting in bed eating when seen and examined upon rounds this am. She tells me she feels well today. She does endorse some chills overnight, however denies feeling feverish. She denies CP/SOB, fever/chills, n/v/d, palpitations. Objective Filed Vitals: 07/01/19 2310 07/02/19 0600 07/02/19 0818 07/02/19 1055 BP: 101/80 98/80 142/53 127/41 Pulse: 58 57 73 69 Resp: 18 20 Temp: 97.7 ??F (36.5 ??C) 97.7 ??F (36.5 ??C) 97.8 ??F (36.6 ??C) 97.7 ??F (36.5 ??C) TempSrc: Oral Oral Oral Oral SpO2: 97% 98% 93% 100% Weight: 78 kg (172 lb) Height: Intake/Output 24H Total: Intake/Output Summary (Last 24 hours) at 07/02/2019 1210 Last data filed at 07/02/2019 0932 Gross per 24 hour Intake 590 ml Output 2625 ml Net -2035 ml Physical Exam: -GENERAL: No acute distress, Well nourished -HEAD: Normocephalic, Atraumatic -EYES: Extraocular movements intact -LUNGS: Effort normal, CTAB -CVS: RRR -NEURO: Awake, alert, oriented to self and time, No gross neuro deficits -SKIN: bandages to LLE CDI Medications ??? aspirin 325 mg Oral Daily ??? atorvastatin 40 mg Oral Daily ??? collagenase Topical Daily ??? enoxaparin 40 mg Subcutaneous Nightly at bedtime ??? insulin lispro 0-16 Units Subcutaneous TID AC And ??? insulin lispro 0-8 Units Subcutaneous Nightly at bedtime ??? levothyroxine 50 mcg Oral Daily ??? vancomycin 1,500 mg Intravenous Q24H acetaminophen, dextrose, dextrose 10 % bolus, glucagon, nitroglycerin, ondansetron, polyethylene glycol Labs, Imaging, Other Studies Recent Labs Lab 06/28/19 1426 06/29/19 1352 06/30/19 0645 07/01/19 0951 07/02/19 1128 WBC 6.8 7.8 8.3 7.8 7.2 RBC 3.47* 3.04* 2.81* 2.95* 2.69* HGB 10.2* 9.0* 8.3* 8.7* 7.9* HCT 30.8* 27.5* 25.5* 26.9* 24.7* MCV 88.8 90.5 90.7 91.2 91.8 MCH 29.4 29.6 29.5 29.5 29.4 MCHC 33.1 32.7 32.5 32.3 32.0 PLT 267 220 213 191 168 RDW 14.7* 15.1* 15.1* 15.4* 15.5* MPV 11.0 9.8 10.5 10.2 10.4 PERNEU 74.0 79.7 76.2 77.8 78.9 PERLYM 16.1 12.2 15.4 13.6 11.7 PERMON 6.2 4.9 5.3 5.5 6.4 LYMC 1.09 0.95* 1.28 1.06 0.84* MONOC 0.42 0.38 0.44 0.43 0.46 EOSC 0.07 0.12 0.14 0.12 0.15 BASOC 0.04 0.04 0.05 0.03 0.02 DTYPE AUTOMATED DIFFERENTIAL AUTOMATED DIFFERENTIAL AUTOMATED DIFFERENTIAL AUTOMATED DIFFERENTIAL AUTOMATED DIFFERENTIAL Recent Labs Lab 06/28/19 1426 06/29/19 1352 06/30/19 0645 07/01/19 0951 NA 133* 136 137 136 K 4.1 3.5 3.5 3.7 CL 92* 98* 101 99* CO2 33.3* 31.9 29.0 31.5 AGAP 7.7 6.1 7.0 5.5 BUN 26* 30* 27* 20* CR 1.31* 1.08* 0.92 0.95 BUNCREATININ 19.8 27.8* 29.3* 21.1 GFRNON 43* 54* 66* 63* GFR 50* 63* 76* 73* GLU 570* 229* 46* 93 CA 9.5 8.9 8.5 8.9 TP 8.1 -- -- -- ALB 2.9* -- -- -- TBIL 0.5 -- -- -- ALKP 75 -- -- -- AST 28 -- -- -- ALT 39 -- -- -- Recent Labs Lab 06/29/19 1352 CHOL 201* TRI 123 HDL 84 LDL 92 TSH 20.700* No results for input(s): APTT, INR, PTT in the last 168 hours. Recent Labs Lab 06/28/19 1426 06/28/19 1942 06/28/19 2134 06/29/19 0235 TROP 0.130* 0.124* 0.125* 0.135* CPK 152 -- -- -- Recent Labs Lab 06/28/19 1824 06/29/19 0009 LACTICACID 3.7* 2.9* No results for input(s): PH, PCO2, PO2, [id number], BICARBWB, BASEDEFICIT, BASEEXCESS in the qess098 hours. No results found for this or any previous visit. Imaging Ct Cerv Spine Wo Con Result Date: [...] By: Xavier Costa MD, 06/28/2019 3:[address] Head Wo Con Result Date: 06/05/2019 CT OF THE BRAIN WITHOUT CONTRAST INDICATION: Confusion/delirium, altered LOC, unexplained TECHNIQUE: CT of the brain was performed without contrast. A dose lowering technique was used for this procedure, which may include, but is not limited to, dose reduction techniques, automated exposure control, the use of a iterative reconstruction, and ALARA (as low as reasonably achievable)/image gently techniques. . COMPARISON: There are no prior studies. FINDINGS: Images are somewhat compromised due tomotion. The posterior fossa structures show mild atrophy with chronic ischemic changes. In the region of the basal ganglia calcifications which appear chronic. The temporal fossa and the frontal fossa is unremarkable. There is mild atrophy with chronic ischemic changes. No acute extra-axial fluid. There is no midline shift. The detail of the osseous structures is somewhat limited because of motion. No definite acute bony abnormalities. IMPRESSION: Limited study due to motion. No evidence of intracranial hemorrhage or other definite acute abnormalities. Mild atrophy with chronic ischemic changes. Xr Chest Portable Result Date: 06/28/2019 Examination: [...] Old healed granulomatous disease. 4. Suboptimal exam. Xr Chest Portable Result Date: 06/05/2019 Examination: Chest x-ray 1 view Exam date/time: 06/05/2019 3:58 PM Reason For Exam: weakness Comparison: Old radiographs are from March 2010 Technique: Upright AP view of the chest demonstrated. Findings: Heart size is borderline. Mediastinum shows small calcifications in theaortic arch. Chronic large calcified granuloma in the right paratracheal region. In the left upper l obe there is a bandlike density which may represent atelectasis and scar tissue which is different than before. In the remainder of the lungs there are no focal infiltrates. Please correlate clinically. If the patient has any respiratory symptoms follow-up chest radiographs recommended in one to 2 weeks to reevaluate the left upper lobe. Osseous structures are intact. =====IMPRESSION:===== Borderline cardiomegaly and chronic calcified granuloma. In the left upper lobe there is a bandlike linear density which may be atelectasis and scar tissue rather than acute inflammation. The remainder of the lungs show no focal infiltrates. : Results for orders placed or performed during the hospital encounter of 06/28/19 ECG [address] [facility] [facility] [address] Test Date: 2019-06-28 Pat Name: IRIS GIL Department: Room: [place] [address] Gender: Female Tennis Director: DIONICIO : 1955 Requested By: AMANDA MOORE Order Number: [id number] Reading MD: Jonatan Aldrich Measurements Intervals [place] Rate: 70 P: 54 MO: 168 QRS: -43 QRSD: 117 T: 127 QT: 435 QTc: 470 Interpretive Statements SINUS RHYTHM MARKED LEFT AXIS DEVIATION POSSIBLE ANTERIOR MYOCARDIAL INFARCTION, OF INDETERMINATE AGE MODERATE T-WAVE ABNORMALITY, CONSIDER LATERAL ISCHEMIA Compared to ECG 06/05/2019 14:03:27 T-wave abnormality now present Possible ischemia now present Left anterior fascicular block no longer present ST (T wave) deviation no longer present Myocardial infarct finding still present Assessment & Plan Severe Sepsis without Shock Patient was found to be hypothermic in the ED with temperature of 93.9F and hypotension (pressure 89/56 mmHg which improved with IVF). Vancomycin and Cefepime were initiated for broad coverage, Monitor Cr, vanc trough (now monotherapyvanc) Source: skin given multiple ulcers found on exam Blood cx 1/2 with MRSA and Enterococcus and MRSA, see below D/c IVF Monitor VS closely, hemodynamically stable ID consulted. Recs appreciated Repeat blood cx pending Vascular surgery consulted, appreciate recs ?? Polymicrobial Bacteremia MRSA, E faecalis 2/2 multiple wounds Repeat cultures pending ID consulted, appreciate recs Continue vanc, follow renal function, pharmacy to dose (abx day 5) TTE obtained, may need to consider obtaining STAR if persistently positive blood cx PVD With nonhealing wounds to LLE Vascular consulted, appreciate recs Will need LLE arteriogram with possible intervention Anemia Hgb 7.9 today Baseline appears to be near 9 Suspect 2/2 wounds, c/b component of underlying CKD Check iron studies, folate, B12, retic Check guaiac to be complete With apparent hx of KENYON, however not on supplementation, will await lab results No s/s of active bleeding Acute Metabolic Encephalopathy Due to multiple causes, including infection, hyperglycemia, ABDIRASHID, NSTEMI. CT of the Head performed in the ED revealed no acute intracranial process; stable cortical atrophy and small vessel disease with left supraorbital scalp swelling. Treat as noted above and monitor mental status. Hold off on MRI and carotid Doppler study ordered as likely metabolic encephalopathy Improving Elevated Troponin Initial Troponin level found to be 0.130. Trend Troponin levels. EKG revealed T-wave inversions. Cardiology consulted. Recs appreciated Echo with no WMAs Stress test as an outpatient per Cards T2DM with Hyperglycemia Patient presented with glucose > 500, not in DKA. Per ER documentation, patient's insulin supply ran out. Patient given IV insulin in the ED. Lantus at HS and add SSI per protocol. D/c Lantus given recurrent hypoglycemia despite Reduced dose. Monitor BG over 24 h and determine future dose. Patient's diet obviously much more restricted herethan at home Monitor Accu-checks both AC and HS. A1c 11.4 on 05/08/2019 ?? ABDIRASHID on CKD 3: resolved Patient presented with BUN of 21 and SCr of 1.31, up from 0.92 last month. Hydration with IVF ordered. Resolved. Off IVF Follow labs Multiple pressure ulcers stage 2-3 POA Wound care c/s See media As above Obesity, BMI 31.21 Hypothyroidism Continue levothyroxine TSH elevated FT4 pending ACP Full code Multiple admissions 2/2 noncompliance. SNF recommended last admission but patient and family ultimately declined. SW consulted for SNF placement. ?? Plan of care discussed with the primary nurse. SHARON ORTEZ NP Cosigned by Anali Agrawal MD at 07/02/2019 3:44 PM CDT * BELA Oglesby - 07/02/2019 10:09 AM CDT followed with Ariana at [facility] today. They have received referral and reviewing. They hope to take pt if they have bed availability. Pt is not medically stable for discharge this date. Craig at [facility] will reach back out to when they have determined if they can accept ptor not. * Bob Hagen RN - 07/01/2019 11:57 PM CDT Patient educated on the plan of care and the discharge process. * Anne De Oliveira RN - 07/01/2019 5:36 PM CDT Problem: Reduced risk for falls/injury Goal: Reduced Risk for Falls/Injury Outcome: Progressing * ONIEL Puentes - 07/01/2019 3:27 PM CDT 07/01/19 1454 Therapy Visit Reason for admission acute encephalopathy, elevated troponins Comorbidities Relevant to OT SEPSIS, DM, HTN, SCHIZOPHRENIA, HYPOTHERMC, BREAST CA Ordering Provider [facility] Verified Two Patient Identifiers Yes Patient consents to therapy Yes Acute Inpatient OT Time Calculation OT Start Time 1454 OT Stop Time 1519 OT Time Calculation (min) 25 min Precautions Precautions Yes/No Yes Weight Bearing Status Full weight bearing General Precautions Bed Alarm;Chair Alarm;Fall Risk Instructed on Precautions Yes;Needs reinforcement and education Other Lower extremities buckle without warning; kaplan catheter Subjective Subjective Room 440. Pt. agreeable to ther. session Pain Pain Patient does not offer or c/o pain Activity Tolerance Endurance Tolerates 20 - 30 min activity with rests Activity Tolerance Comments Fair tolerance Cognition Overall Cognitive Status Impaired ADL Grooming Assistance Minimal;Stand by;Sitting upright in bed Grooming Deficit Setup;Verbal cueing;Supervision/safety;Increased time to complete Grooming Comment Pt. completed func. grooming tasks from supported sit in bed (oral hygiene/wash face and hands/comb hair); Assist for thoroughness; Cues for initiation/follow through UE Dressing Assistance Moderate;Sitting upright in bed UE Dressing Deficit Setup;Verbal cueing;Supervision/safety;Increased time to complete;Thread RUE;Pull down in back;shoe coverer head UE Dressing Comment Pt. completed func. UB dressing task sitting supported in bed; set up; cues fortech's/initiation and follow through LE Dressing Assistance Maximal;Total;Sitting in chair;Alternating sit/stand LE Dressing Deficit Setup;Steadying;Requires assistive device for steadying;Verbal cueing;Supervision/safety;Increased time to complete;Don/doff R sock;Don/doff L sock;Thread RLE into pants;Thread LLE into pants;Pull up over hips LE Dressing Comment Pt. completed func. LB dresing task (slipper socks/pants) Alt sit<->standfrom chair level using WW for steadying; cues for tech's/initiation/follow through; extra time; setup; steadying/safety; assist for over hips and distal reach Bed Mobility Supine to Sit Max assist to right (trunk/le mngmt) Functional Transfers Sit to Stand Mod assist (WW) Bed to Chair Mod assist (WW) Other (Comment) noted knee's buckled during func. sit<->stand requiring increased assist fromtherapy to safely return to sit in recliner chair Balance Sitting - Static SBA;Min Assist Sitting - Dynamic Min Assist Standing - Static Mod Assist (WW) Standing - Dynamic Mod Assist (WW) Patient/Family Training Self Cares x Transfer Training x Precautions x Other (Comment) One to one/verbal/hands on; receptive to ther. session; questionable carryover Recommendation OT Recommendation OT during Hospitalization;OT at [facility] OT Equipment Recommended To Be Determined Plan OT Treatment/Intervention Self-care training;Therapeutic exercises;Therapeutic activities;Neuromuscular re-education;Functional activity;Safety Progress Slow progress, decreased activity tolerance OT Frequency 3 times/week OT plan for next session ADL's/XFER's If this is the last treatment note, it will serve as the discharge summary Yes End of Session Safety End of Session Safety Chair alarm set/activated;Call light within reach;Nursing aware of session End of Session Comment Educated pt. on use of call light/button for needs/safety * Marley Ta PharmD - 07/01/2019 2:27 PM CDT Vancomycin Pharmacy to Dose Day #4 Ordering Provider: Dr. Ardon Indication: Sepsis Goal Trough: 15-20 mcg/ml Ht/Wt: 5' 2 77.4kg Dose/Frequency: 1500mg q24h Date WBC SCr CrCl Tmax Trough 06/27 6.8 1.31 41.8 97.6 06/28 97.6 06/29 8.3 0.92 59.6 97.4 06/30 7.8 0.95 57 98.4 Other Antibiotics: - Cefepime Imaging: - CXR (06/27): no acute infiltrate demonstrated - CT head (06/27): No acute intracranial process identified. Cultures: - Blood (06/27) : MRSA in 1/2 (S- tetracycline, bactrim, vanc) and enterococcus faecalis (S- ampicillin, penicillin, linezolid) and Staph spp. In 1/2 - Urine (06/27): NGTD A/P: Pharmacy to dose vancomycin for this 64 YOF for sepsis. PMH significant for diabetes, hypertension,and schizophrenia. The patient was admitted through the ED after experiencing a fall at home. Regimen started at 1500mg q24h with initial trough scheduled prior to the fourth dose (today @ 2129). Will provide additional recommendations after trough level results. Addendum to vancomycin day 4: Trough drawn while dose hanging (Trough drawn at 2200, dose hung at 2151). Will re-enter to be drawn prior to dose tomorrow (07/01 @ 2130) * Dimas Gil LCSW - 07/01/2019 1:38 PM CDT Per discussion at rounds pt will likely need [facility] IV meds in addition pt will need SNF for therapy. Call placed to pt's son Alisson this date as pt's dtr's phone is unable to take messages at thistime. Per son he feels that [facility] SNF would be best route at [place], he confirms that pt was planned to go there recently before family decided to take home. Pt's son agreeable to referral this date. [facility] notified to screen and they state pt was already screened recently. No other needs noted at this time. Will await review from [facility]. * ONIEL Puentes - 07/01/2019 12:18 PM CDT 07/01/19 1015 Therapy Visit Reason for admission ACUTE ENCEPHALOOPATHY, FALL Comorbidities Relevant to OT SEPSIS, DM, HTN, SCHIZOPHRENIA, HYPOTHERMC, BREAST CA Ordering Provider MD DUGLAS Subjective Subjective Room 440. Pt. with Phys. Ther.; will follow up at later time/date for OT tx session as appropriate * Bud Singh, PT - 07/01/2019 11:27 AM CDT 07/01/19 1100 Therapy Visit Ordering Provider Duglas PT Received On 07/01/19 Subjective Rm 440: Pt received lying in bed agreeable to PT evaluation. Pt intermittently saying things that were incomprehensible. Reason for admission acute encephalopathy, elevated troponins Relevant Comorbidities/ Personal Factors to PT PMH: HTN, HLD, breast CA, DM2, schizophrenia, PVD, dementia Verified Two Patient Identifiers Yes Patient consents to therapy Yes Acute Inpatient PT Time Calculation PT Start Time 1011 PT Stop Time 1030 PT Time Calculation (min) 19 min Precautions Precautions Yes/No Yes General Precautions Bed Alarm;Chair Alarm;Fall Risk Instructed on Precautions Yes;Needs reinforcement and education Other Lower extremities buckle without warning; kaplan catheter Home Living Type of Home House Home Layout One level Home Accessibility 0 Steps to enter Home Equipment 4 Wheeled walker Prior Function Level of [place] Independent with functional transfers;Independent with ambulation Device used at baseline 4 Wheeled walker Baseline Ambulation Distance/Assistance household ambulator Fall History Yes Reason for fall loss of balance Most recent fall reason for admission How many falls in the past year? multipl Lives With Family (granddaughter) Receives Help From Family Pain Pain No Activity Tolerance Endurance Tolerates 10 - 20 min activity with rests Activity Tolerance Comments pt with fair to poor tolerance. Pt reports chronic dizziness. HR 82 bpmwith activity Cognition Overall Cognitive Status Impaired Arousal/Alertness Generalized responses Orientation Level Oriented to place;Oriented to person;Disoriented to time;Disoriented to situation Following Commands Follows one step commands with repetition Safety Judgment Decreased awareness of need for safety Overall Extremity Assessment Lower Extremity Comment B LE strength is grossly 4/5. Bed Mobility Supine to Sit Max assist to right TRANSFERS Sit to Stand Min assist Bed to Chair Max assist Other (Comment) pt had episode of LEs buckling mid transfer requiring maxA for PT to maintain standing position and safety move to the chair. RN notified Gait Gait Assistance MEÑO Balance Sitting - Static SBA;Min Assist Sitting - Dynamic Min Assist;Mod Assist Standing - Static Max Assist;Support of both upper extremities Standing - Dynamic Max Assist;Support of both upper extremities Patient/Family Training Bed Mobility x Transfer Training x Precautions x Assessment Personal Factors/Comorbidities Impacting Care 3-4 personal factors/comorbidities Examination of Body Systems High (at least 4 Elements) Objectives of Body Systems Impaired bed mobility;Impaired transfers;Impaired ambulation;Impaired balance;Decreased LE strength;Decreased safe judgement;Decreased cognition;Decreased endurance Clinical Presentation of Patient Unpredictable and unstable characteristics Complexity Level of Evaluation High Prognosis Fair;Guarded PT Assess/Eval Other (Comment) Pt is a 64 y.o. female adm with acute encephalopathy and elevated troponins. Troponins have remained stable but elevated and have stopped trending them per RN. Prior toadmission pt was needing some help from family for mobility however pt reports that she was able to transfer and walk with a 4ww. Pt currently requiring maxA for bed mobiltiy and transfers d/t impaired balance, decreased LE strength and jerky movements which result in LEs buckling while transferring. Pt will benefit from skilled PT to address deficits and improve safety/independence with mobiltiy. Recommendation PT Recommendation PT during Hospitalization;PT at [facility] Facility PT Equipment Recommended To Be Determined Plan PT Treatments/Interventions Gait Training;Therapeutic Exercises;Therapeutic Activities;Neuromuscular re-education PT Frequency Daily;BID;6 times/week PT plan for next session transfer training, gait training If this is the last treatment note,it will serve as the discharge summary Yes End of Session Safety End of Session Safety Chair alarm set/activated;Call light within reach;Nursing aware of session;Transfer status education * Summer London, ANP-BC - 07/01/2019 10:37 AM CDT General Cardiology Progress Note Patient being seen for Sunita Nails MD. Chief Complaint: Cardiology follow up of elevated troponin. Iris Gil is a 64-year-old female who has has Bilateral breast cancer, dementia, diabetes mellitus type 2 uncontrolled, peripheral vascular disease, hyperlipemia, schizophrenia and hypertension. She was admitted on 06/28/2019 1:27 PM for fall and laceration to her left presybeterian. She was foundto have pinpoint pupils and received a dose of Narcan without significant response. She was hypothermic at 92.5F and required the bare hugger. She had hyperglycemia but no evidence of DKA so she was started on IV fluids. Troponin was noted to be elevated at 0.135. Cardiology was consulted to evaluate. Assessment/Plan Sepsis/ Encephalopathy -improving, continues on antibiotics. Per others, Afebrile, WBC 7.8. ?? Elevated troponin with an abnormal ECG. PEACE score of 2. No real rise or fall and troponin, peak of0.135 to 0.124. Doubt ACS. Echocardiogram showed normal LVSF and no wall motion abnormality. Continues on aspirin 325 mg daily. Suspect there is underlying coronary artery disease given her history of diabetes mellitus type 2, hypertension, hyperlipidemia and PVD. Could consider a stress test at some point for risk stratification. ?? Diabetes mellitus type 2 uncontrolled. Per others ?? Hypertension- blood pressure have been variable mostly controlled. Monitor for now. ?? Hyperlipidemia. Continues on atorvastatin 40 mg daily. Cardiology will sign off, and plan stress test as outpatient. Subjective Up in chair, no teeth. Denies chest pain or shortness of breath. Reviewed echo with her and given copy. Informed would do a stress test as outpatient. Review of Systems Respiratory: Negative for cough and shortness of breath. Cardiovascular: Negative for chest pain, palpitations and leg swelling. Neurological: Negative for dizziness. Current Facility-Administered Medications: ??? acetaminophen (TYLENOL) tablet 650 mg, 650 mg, Oral, Q4H PRN, Savanna Ardon MD ??? aspirin tablet 325 mg, 325 mg, Oral, Daily, Savanna Ardon MD, 325 mg at 07/01/19 0858 ??? atorvastatin (LIPITOR) tablet 40 mg, 40 mg, Oral, Daily, Sunita Nails MD, 40 mg at 07/01/19 0858 ??? ceFEPIme (MAXIPIME) 2 g in sodium chloride 0.9 % 100 mL IVPB, 2 g, Intravenous, Q12H, Savanna Victoria MD, Stopped at 07/01/19 0133 ??? dextrose (GLUTOSE) 40 % oral gel 15-30 g, 15-30 g, Oral, PRN, Loraine Penaloza MD, 30 g at 07/01/19 0625 ??? dextrose 10 % bolus infusion 125-250 mL, 125-250 mL, Intravenous, PRN, Loraine Penaloza MD ??? enoxaparin (LOVENOX) 40 MG/0.4ML syringe 40 mg, 40 mg, Subcutaneous, Nightly at bedtime, Savanna Ardon MD, 40 mg at 06/30/19 2216 ??? glucagon injection 1 mg, 1 mg, Intramuscular, Once PRN, Loraine Penaloza MD ??? insulin lispro (HUMALOG) injection 0-16 Units, 0-16 Units, Subcutaneous, TID AC, 2 Units at 06/30/19 1756 AND insulin lispro (HUMALOG) injection 0-8 Units, 0-8 Units, Subcutaneous, Nightly atbedtime, Savanna Ardon MD, 3 Units at 06/29/19 2134 ??? levothyroxine (SYNTHROID) tablet 50 mcg, 50 mcg, Oral, Daily, Savanna Ardon MD, 50 mcg at 07/01/19 0625 ??? nitroglycerin (NITROSTAT) SL tablet 0.4 mg, 0.4 mg, Sublingual, Q5 Min PRN, Savanna Ardon MD ??? ondansetron (ZOFRAN) injection 4 mg, 4 mg, Intravenous, Q8H PRN, Savanna Ardon MD ??? polyethylene glycol (GLYCOLAX) packet 17 g, 17 g, Oral, Daily PRN, Savanna Ardon MD ??? vancomycin (VANCOCIN) 1,500 mg in sodium chloride 0.9 % 500 mL IVPB, 1,500 mg, Intravenous, Q24H, Amanda Moore MD, Stopped at 07/01/19 0028 Allergies Allergen Reactions ??? Codeine Nausea and Vomiting Objective Telemetry: Sinus rhythm at 81 bpm Filed Vitals: 06/30/19 2038 06/30/19 2330 07/01/19 0450 07/01/19 0804 BP: 125/46 118/52 129/64 129/59 Pulse: 67 79 Resp: 20 Temp: 97.5 ??F (36.4 ??C) 97.8 ??F (36.6 ??C) 98.4 ??F (36.9 ??C) 97.9 ??F (36.6 ??C) TempSrc: Oral Oral Oral Oral SpO2: 98% 98% 98% 98% Weight: 77.9 kg (171 lb 11.8 oz) Height: Intake/Output Summary (Last 24 hours) at 07/01/2019 1037 Last data filed at 07/01/2019 0617 Gross per 24 hour Intake 360 ml Output 1100 ml Net -740 ml Last 5 Recorded Weights 06/28/19 1344 06/30/19 0503 07/01/19 0450 Weight: 77.4 kg (170 lb 10.2 oz) 77.6 kg (171 lb 1.2 oz) 77.9 kg (171 lb 11.8 oz) Physical Exam Constitutional: She appears well-developed and well-nourished. No distress. HENT: Head: Normocephalic and atraumatic. Mouth/Throat: Oropharynx is clear and moist. edentulous Eyes: Conjunctivae are normal. Right eye exhibits no discharge. Left eye exhibits no discharge. Neck: No JVD present. Cardiovascular: Normal rate and regular rhythm. Exam reveals no gallop. No murmur heard. No systolic murmur is present. Pulses: Radial pulses are 1+ on the right side, and 1+ on the left side. Dorsalis pedis pulses are 1+ on the right side, and 1+ on the left side. Pulmonary/Chest: Breath sounds normal. No stridor. No respiratory distress. She has no wheezes. Shehas no rales. Lump on her upper right breast, scar intact, no redness, swelling or tenderness. Abdominal: Soft. Bowel sounds are normal. She exhibits no distension. There is no tenderness. Large hard tender lump Genitourinary: Genitourinary Comments: Catheter in place Musculoskeletal: She exhibits no edema. Neurological: She is alert. Skin: Skin is warm and dry. No rash noted. She is not diaphoretic. Psychiatric: She has a normal mood and affect. Her behavior is normal. Judgment and thought contentnormal. Data Reviewed Recent Labs Lab 06/29/19 1352 06/30/19 0645 07/01/19 0951 WBC 7.8 8.3 7.8 RBC 3.04* 2.81* 2.95* HGB 9.0* 8.3* 8.7* HCT 27.5* 25.5* 26.9* MCV 90.5 90.7 91.2 MCH 29.6 29.5 29.5 MCHC 32.7 32.5 32.3 PLT 220 213 191 Recent Labs Lab 06/28/19 1426 06/29/19 1352 06/30/19 0645 NA 133* 136 137 K 4.1 3.5 3.5 CL 92* 98* 101 CO2 33.3* 31.9 29.0 BUN 26* 30* 27* CR 1.31* 1.08* 0.92 GLU 570* 229* 46* BUNCREATININ 19.8 27.8* 29.3* GFRNON 43* 54* 66* GFR 50* 63* 76* estimated creatinine clearance is 59.7 mL/min (based on SCr of 0.92 mg/dL). Recent Labs Lab 06/28/19 1426 06/29/19 1352 06/30/19 0645 CA 9.5 8.9 8.5 Recent Labs Lab 06/28/19 1426 TP 8.1 ALB 2.9* TBIL 0.5 ALKP 75 AST 28 ALT 39 No results for input(s): APTT, INR, PTT in the last 168 hours. Lab Results Component Value Date CHOL 201 (H) 06/29/2019 TRI 123 06/29/2019 HDL 84 06/29/2019 LDL 92 06/29/2019 HGBA1C 11.4 (H) 05/08/2019 TSH 20.700 (H) 06/29/2019 Recent Labs Lab 06/28/19 1426 06/28/19 1942 06/28/19 2134 06/29/19 0235 TROP 0.130* 0.124* 0.125* 0.135* Results for orders placed or performed during the hospital encounter of 06/28/19 (from the past 168hour(s)) CULTURE URINE Collection Time: 06/28/19 6:09 PM Result Value Ref Range Spec. Description URINE [place] CATH Special Requests: NO SPECIAL REQUEST Culture Result: NO GROWTH 2 DAYS Results for orders placed or performed during the hospital encounter of 06/28/19 (from the past 168hour(s)) CULTURE, BACTERIA, BLOOD Collection Time: 06/28/19 6:24 PM Result Value Ref Range Spec. Description BLOOD Special Requests: NO SPECIAL REQUEST Gram Stain Result GRAM POSITIVE COCCI RESEMBLING STAPHYLOCOCCUS SPECIES Gram Stain Result GRAM STAIN CALLED TO AND REPEATED BACK BY MANJINDER SRINIVASAN RN, AT 1215, 06/30/19. [facility] Culture Result: GROWTH OF STAPH. SPECIES NOT STAPH. AUREUS (AA) CULTURE, BACTERIA, BLOOD Collection Time: 06/28/19 6:24 PM Result Value Ref Range Spec. Description BLOOD Special Requests: NO SPECIAL REQUEST Gram Stain Result GRAM POSITIVE COCCI RESEMBLING STREPTOCOCCUS SPECIES Gram Stain Result GRAM STAIN CALLED TO AND REPEATED BACK BY ROLF DURBIN RN, AT 1335, 06/29/19. [facility] Culture Result: (AA) METHICILLIN RESISTANT STAPHYLOCOCCUS AUREUS DETECTED BY VERIGENE NUCLEIC ACID TEST FOLLOW ISOLATION PROTOCOL. Culture Result: (AA) ENTEROCOCCUS FAECALIS DETECTED BY VERIGENE NUCLEIC ACID TEST NO RESISTANCE MARKERS DETECTED BY VERIGENE NUCLEIC ACID TEST. Culture Result: CALLED RN FOR MRSA PROTOCCOL ROLF LEE. PHARMACY CALLED AT [phone] FOR VERIGENE RESULTS TALKED TO AJ HAYWARD. Culture Result: (AA) GROWTH OF METHICILLIN RESISTANT STAPHYLOCOCCUS AUREUS FOLLOW ISOLATION PROTOCOL. CALLED TO AND REPEATED BACK BY ANNE DE OLIVIERA AT 0732 CLW 07/01/2019 Culture Result: (AA) GROWTH OF ENTEROCOCCUS FAECALIS IF PATIENT IS PENICILLIN ALLERGIC, CONTACT THE MICROBIOLOGY DEPARTMENT FOR READILY AVAILABLE VANCOMYCIN SUSCEPTIBILITY. Susceptibility Enterococcus faecalis - MICHAEL (VITEK) AMPICILLIN <=2 Sensitive GENT. SYNERGY SCREEN Resistant PENICILLIN G 2 Sensitive LINEZOLID 1 Sensitive Methicillin resistant staphylococcus aureus - MICHAEL (VITEK) CLINDAMYCIN >=8 Resistant ERYTHROMYCIN >=8 Resistant OXACILLIN >=4 Resistant TRIMETH-SULFAMETH. <=10 Sensitive TETRACYCLINE <=1 Sensitive VANCOMYCIN 1 Sensitive Imaging 06/30/19 ECHOCARDIOGRAM W CON: The left ventricular size is normal. The left ventricular systolic function is lower limits of normal. Estimated left ventricular ejection fraction is 50-55%. Moderate to severe concentric left ventricular hypertrophy. The left atrial size is moderately enlarged. Trivial pericardial effusion, without tamponade physiology. No significant valvular disease. 06/28/19 CT cerv spine: 1. No acute traumatic injury identified. 2. Spondylosis as described. 3. Bilateral carotid atherosclerosis. 06/28/19 CT Head: No acute intracranial process identified. Stable cortical atrophy and small vesseldisease. Left supraorbital scalp swelling. 06/28/19 CXR: 1. No acute infiltrate demonstrated. 2. Mild cardiomegaly. 3. Old healed granulomatous disease. 4. Suboptimal exam. NBA LEAL Cosigned by Sunita Nails MD at 07/01/2019 2:12 PM CDT * Loraine Penaloza MD - 07/01/2019 9:35 AM CDT Hospitalist Daily Progress Note Subjective Patient hypoglycemic again this AM. Remains mostly oriented but continues to make some bizarre comments. Objective Filed Vitals: 06/30/19 2038 06/30/19 2330 07/01/19 0450 07/01/19 0804 BP: 125/46 118/52 129/64 129/59 Pulse: 67 79 Resp: Temp: 97.5 ??F (36.4 ??C) 97.8 ??F (36.6 ??C) 98.4 ??F (36.9 ??C) 97.9 ??F (36.6 ??C) TempSrc: Oral Oral Oral Oral SpO2: 98% 98% 98% 98% Weight: 77.9 kg (171 lb 11.8 oz) Height: Intake/Output 24H Total: Intake/Output Summary (Last 24 hours) at 07/01/2019 1106 Last data filed at 07/01/2019 0617 Gross per 24 hour Intake 360 ml Output 1100 ml Net -740 ml Physical Exam: -GENERAL: No acute distress, Well nourished -HEAD: Normocephalic, Atraumatic -EYES: Extraocular movements intact -LUNGS: Effort normal, CTAB -CVS: RRR -NEURO: Awake, alert, oriented to self and time, No gross neuro deficits Medications ??? aspirin 325 mg Oral Daily ??? atorvastatin 40 mg Oral Daily ??? cefepime 2 g Intravenous Q12H ??? enoxaparin 40 mg Subcutaneous Nightly at bedtime ??? insulin lispro 0-16 Units Subcutaneous TID AC And ??? insulin lispro 0-8 Units Subcutaneous Nightly at bedtime ??? levothyroxine 50 mcg Oral Daily ??? vancomycin 1,500 mg Intravenous Q24H acetaminophen, dextrose, dextrose 10 % bolus, glucagon, nitroglycerin, ondansetron, polyethylene glycol Labs, Imaging, Other Studies Recent Labs Lab 06/28/19 1426 06/29/19 1352 06/30/19 0645 07/01/19 0951 WBC 6.8 7.8 8.3 7.8 RBC 3.47* 3.04* 2.81* 2.95* HGB 10.2* 9.0* 8.3* 8.7* HCT 30.8* 27.5* 25.5* 26.9* MCV 88.8 90.5 90.7 91.2 MCH 29.4 29.6 29.5 29.5 MCHC 33.1 32.7 32.5 32.3 PLT 267 220 213 191 RDW 14.7* 15.1* 15.1* 15.4* MPV 11.0 9.8 10.5 10.2 PERNEU 74.0 79.7 76.2 77.8 PERLYM 16.1 12.2 15.4 13.6 PERMON 6.2 4.9 5.3 5.5 LYMC 1.09 0.95* 1.28 1.06 MONOC 0.42 0.38 0.44 0.43 EOSC 0.07 0.12 0.14 0.12 BASOC 0.04 0.04 0.05 0.03 DTYPE AUTOMATED DIFFERENTIAL AUTOMATED DIFFERENTIAL AUTOMATED DIFFERENTIAL AUTOMATED DIFFERENTIAL Recent Labs Lab 06/28/19 1426 06/29/19 1352 06/30/19 0645 07/01/19 0951 NA 133* 136 137 136 K 4.1 3.5 3.5 3.7 CL 92* 98* 101 99* CO2 33.3* 31.9 29.0 31.5 AGAP 7.7 6.1 7.0 5.5 BUN 26* 30* 27* 20* CR 1.31* 1.08* 0.92 0.95 BUNCREATININ 19.8 27.8* 29.3* 21.1 GFRNON 43* 54* 66* 63* GFR 50* 63* 76* 73* GLU 570* 229* 46* 93 CA 9.5 8.9 8.5 8.9 TP 8.1 -- -- -- ALB 2.9* -- -- -- TBIL 0.5 -- -- -- ALKP 75 -- -- -- AST 28 -- -- -- ALT 39 -- -- -- Recent Labs Lab 06/29/19 1352 CHOL 201* TRI 123 HDL 84 LDL 92 TSH 20.700* No results for input(s): APTT, INR, PTT in the last 168 hours. Recent Labs Lab 06/28/19 1426 06/28/19 1942 06/28/19 2134 06/29/19 0235 TROP 0.130* 0.124* 0.125* 0.135* CPK 152 -- -- -- Recent Labs Lab 06/28/19 1824 06/29/19 0009 LACTICACID 3.7* 2.9* No results for input(s): PH, PCO2, PO2, [id number], BICARBWB, BASEDEFICIT, BASEEXCESS in the avxy486 hours. No results found for this or any previous visit. Imaging Ct Cerv Spine Wo Con Result Date: [...] By: Xavier Costa MD, 06/28/2019 3:[address] Head Wo Con Result Date: 06/05/2019 CT OF THE BRAIN WITHOUT CONTRAST INDICATION: Confusion/delirium, altered LOC, unexplained TECHNIQUE: CT of the brain was performed without contrast. A dose lowering technique was used for this procedure, which may include, but is not limited to, dose reduction techniques, automated exposure control, the use of a iterative reconstruction, and ALARA (as low as reasonably achievable)/image gently techniques. . COMPARISON: There are no prior studies. FINDINGS: Images are somewhat compromised due tomotion. The posterior fossa structures show mild atrophy with chronic ischemic changes. In the region of the basal ganglia calcifications which appear chronic. The temporal fossa and the frontal fossa is unremarkable. There is mild atrophy with chronic ischemic changes. No acute extra-axial fluid. There is no midline shift. The detail of the osseous structures is somewhat limited because of motion. No definite acute bony abnormalities. IMPRESSION: Limited study due to motion. No evidence of intracranial hemorrhage or other definite acute abnormalities. Mild atrophy with chronic ischemic changes. Xr Chest Portable Result Date: 06/28/2019 Examination: [...] Old healed granulomatous disease. 4. Suboptimal exam. Xr Chest Portable Result Date: 06/05/2019 Examination: Chest x-ray 1 view Exam date/time: 06/05/2019 3:58 PM Reason For Exam: weakness Comparison: Old radiographs are from March 2010 Technique: Upright AP view of the chest demonstrated. Findings: Heart size is borderline. Mediastinum shows small calcifications in theaortic arch. Chronic large calcified granuloma in the right paratracheal region. In the left upper l obe there is a bandlike density which may represent atelectasis and scar tissue which is different than before. In the remainder of the lungs there are no focal infiltrates. Please correlate clinically. If the patient has any respiratory symptoms follow-up chest radiographs recommended in one to 2 weeks to reevaluate the left upper lobe. Osseous structures are intact. =====IMPRESSION:===== Borderline cardiomegaly and chronic calcified granuloma. In the left upper lobe there is a bandlike linear density which may be atelectasis and scar tissue rather than acute inflammation. The remainder of the lungs show no focal infiltrates. 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: [place] : 1955 Requested By: AMANDA MOORE Order Number: [id number] Reading MD: Jonatan Aldrich Measurements Intervals [place] Rate: 70 P: 54 MO: 168 QRS: -43 QRSD: 117 T: 127 QT: 435 QTc: 470 Interpretive Statements SINUS RHYTHM MARKED LEFT AXIS DEVIATION POSSIBLE ANTERIOR MYOCARDIAL INFARCTION, OF INDETERMINATE AGE MODERATE T-WAVE ABNORMALITY, CONSIDER LATERAL ISCHEMIA Compared to ECG 06/05/2019 14:03:27 T-wave abnormality now present Possible ischemia now present Left anterior fascicular block no longer present ST (T wave) deviation no longer present Myocardial infarct finding still present Assessment & Plan Severe sepsis without shock: Patient was found to be hypothermic in the ED with temperature of 93.9F and hypotension (pressure 89/56 mmHg which improved with IVF). Vancomycin and Cefepime were initiated for broad coverage, especially for skin given multiple ulcers found on exam. Monitor Cr, vanc trough Blood cx 1/2 with MRSA and Enterococcus and MRSA D/c IVF Monitor VS closely. ID consulted. Recs appreciated Repeat blood cx in AM May also need to consult Vascular or General Surgery for wound debridement TTE obtained Consider STAR if persistently positive blood cx ?? Elevated Troponin Level: Initial Troponin level found to be 0.130. Trend Troponin levels. EKG revealed T-wave inversions. Cardiology consulted. Recs appreciated Echo with no WMAs Consider stress in future per Cards given high risk ?? Acute metabolicEncephalopathy: Due to multiple causes, including infection, hyperglycemia, ABDIRASHID, NSTEMI. CT of the Head performed in the ED revealed no acute intracranial process; stable cortical atrophy and small vessel disease with left supraorbital scalp swelling. Treat as noted above and monitor mental status. Hold off on MRI and carotid Doppler study ordered as likely metabolic encephalopathy Improving Type 2 Diabetes Mellitus with Hyperglycemia: Patient presented with glucose > 500, not in DKA. Per ER documentation, patient's insulin supply ran out. Patient given IV insulin in the ED. Lantus at HS and add SSI per protocol. D/c Lantus given recurrent hypoglycemia despite Reduced dose. Monitor BG over 24 h and determine future dose. Patient's diet obviously much more restricted herethan at home Monitor Accu-checks both AC and HS. A1c 11.4 on 05/08/2019 ?? ABDIRASHID: Patient presented with BUN of 21 and SCr of 1.31, up from 0.92 last month. Hydration with IVF ordered. Resolved. Off IVF Monitor with BMP in the AM. Multiple pressure ulcers stage 2-3 POA Wound care c/s As above Obesity, BMI 31.21 Hypothyroidism Continue levothyroxine TSH elevated FT4 ordered ACP Full code Multiple admissions 2/2 noncompliance. SNF recommended last admission but patient and family ultimately declined. SW consulted for SNF placement. ?? DVT ppx: Lovenox ordered. Plan of care discussed with RN. LORAINE PENALOZA MD * Onelia Aquino RN - 07/01/2019 5:20 AM CDT Problem: Reduced risk for falls/injury Goal: Reduced Risk for Falls/Injury Outcome: Progressing Patient remains injury free. Bed alarm armed, bed in lowest position with wheels locked, yellow non-slip socks on, and hourly visits to maintain patient safety. * Earle Brunson RN - 06/30/2019 7:16 PM CDT Problem: Reduced risk for falls/injury Goal: Reduced Risk for Falls/Injury Outcome: Progressing Note: Without falls this shift. Bed alarm in use. Continue to monitor. * Sunita Nails MD - 06/30/2019 5:17 PM CDT General Cardiology Progress Note Patient being seen for Sunita Nails MD. Chief Complaint: Cardiology follow up of elevated troponin. Iris Gil is a 64-year-old female who has has Bilateral breast cancer, dementia, diabetes mellitus type 2 uncontrolled, peripheral vascular disease, hyperlipemia, schizophrenia and hypertension . She was admitted on 06/28/2019 1:27 PM for fall and laceration to her left presybeterian. She was found to have pinpoint pupils and received a dose of Narcan without significant response. She was hypothermic At 92.5F and required the bare hugger. She had hyperglycemia but no evidence of DKA so she wasstarted on IV fluids. Her troponin was noted to be elevated at 0.135. Cardiology was consulted to see her. Assessment/Plan Sepsis/ Encephalopathy -improving, continues on antibiotics. Per others ?? Elevated troponin with an abnormal ECG. PEACE score of 2. No real rise or fall and troponin. Doubt ACS. Echocardiogram no wall motion abnormality. Continues on aspirin. Suspect there is underlying coronary artery disease given her history of diabetes mellitus type 2, hypertension, hyperlipidemia andPVD. Could consider a stress test at some point for risk stratification. ?? Diabetes mellitus type 2 uncontrolled. Per others ?? hypertension- pressures have been variable mostly controlled. Monitor for now ?? Hyperlipidemia. Continues on atorvastatin. Subjective Mrs. Gil reports that she is coming back but not ready to go anywhere. She is feeling better.She denies chest pain shortness of breath. Review of Systems Respiratory: Negative for shortness of breath. Cardiovascular: Negative for chest pain. Neurological: Positive for weakness. Current Facility-Administered Medications: ??? acetaminophen (TYLENOL) tablet 650 mg, 650 mg, Oral, Q4H PRN, Savanna Ardon MD ??? aspirin tablet 325 mg, 325 mg, Oral, Daily, Savanna Ardon MD, 325 mg at 06/30/19 0838 ??? atorvastatin (LIPITOR) tablet 40 mg, 40 mg, Oral, Daily, Sunita Nails MD, 40 mg at 06/30/19 0838 ??? ceFEPIme (MAXIPIME) 2 g in sodium chloride 0.9 % 100 mL IVPB, 2 g, Intravenous, Q12H, Savanna Victoria MD, Stopped at 06/30/19 1426 ??? dextrose (GLUTOSE) 40 % oral gel 15-30 g, 15-30 g, Oral, PRN, Loraine Penaloza MD ??? dextrose 10 % bolus infusion 125-250 mL, 125-250 mL, Intravenous, PRN, Loraine Penaloza MD ??? enoxaparin (LOVENOX) 40 MG/0.4ML syringe 40 mg, 40 mg, Subcutaneous, Nightly at bedtime, Savanna Ardon MD, 40 mg at 06/29/19 2134 ??? glucagon injection 1 mg, 1 mg, Intramuscular, Once PRN, Loraine Penaloza MD ??? insulin glargine (LANTUS) injection 10 Units, 10 Units, Subcutaneous, Nightly at bedtime, Loraine Penaloza MD ??? insulin lispro (HUMALOG) injection 0-16 Units, 0-16 Units, Subcutaneous, TID AC, 8 Units at 06/30/19 1341 AND insulin lispro (HUMALOG) injection 0-8 Units, 0-8 Units, Subcutaneous, Nightly atbedtime, Savanna Ardon MD, 3 Units at 06/29/19 2134 ??? levothyroxine (SYNTHROID) tablet 50 mcg, 50 mcg, Oral, Daily, Savanna Ardon MD, 50 mcg at 06/30/19 0507 ??? nitroglycerin (NITROSTAT) SL tablet 0.4 mg, 0.4 mg, Sublingual, Q5 Min PRN, Savanna Ardon MD ??? ondansetron (ZOFRAN) injection 4 mg, 4 mg, Intravenous, Q8H PRN, Savanna Ardon MD ??? polyethylene glycol (GLYCOLAX) packet 17 g, 17 g, Oral, Daily PRN, Savanna Ardon MD ??? vancomycin (VANCOCIN) 1,500 mg in sodium chloride 0.9 % 500 mL IVPB, 1,500 mg, Intravenous, Q24H, Amanda Moore MD, Stopped at 06/29/19 2338 Allergies Allergen Reactions ??? Codeine Nausea and Vomiting Objective Telemetry: Sinus rhythm at 81 bpm Filed Vitals: 06/30/19 0025 06/30/19 0503 06/30/19 0809 06/30/19 1551 BP: 142/68 149/79 (!) 117/39 147/45 Pulse: 70 75 77 80 Resp: Temp: 97.4 ??F (36.3 ??C) 97.8 ??F (36.6 ??C) TempSrc: Axillary Oral SpO2: 98% 98% 100% 97% Weight: 77.6 kg (171 lb 1.2 oz) Height: Intake/Output Summary (Last 24 hours) at 06/30/2019 1717 Last data filed at 06/30/2019 1455 Gross per 24 hour Intake 290 ml Output 550 ml Net -260 ml Last 5 Recorded Weights 06/28/19 1344 06/30/19 0503 Weight: 77.4 kg (170 lb 10.2 oz) 77.6 kg (171 lb 1.2 oz) Physical Exam HENT: Head: Normocephalic and atraumatic. edentulous Eyes: Conjunctivae are normal. Right eye exhibits no discharge. Left eye exhibits no discharge. Cardiovascular: Normal rate and regular rhythm. No systolic murmur is present. Pulses: Carotid pulses are 1+ on the right side, and 1+ on the left side. Radial pulses are 1+ on the right side, and 1+ on the left side. Dorsalis pedis pulses are 1+ on the right side, and 1+ on the left side. Posterior tibial pulses are 1+ on the right side, and 1+ on the left side. Pulmonary/Chest: Effort normal and breath sounds normal. No stridor. She has no wheezes. She has jerzy. Lump on her right breast. Abdominal: She exhibits distension. There is tenderness. Large hard tender lump Genitourinary: Genitourinary Comments: Catheter in place Musculoskeletal: She exhibits edema (1 pitting). Neurological: She is alert. Skin: Skin is warm and dry. No rash noted. Psychiatric: She has a normal mood and affect. Her behavior is normal. Judgment and thought contentnormal. Data Reviewed Recent Labs Lab 06/28/19 1426 06/29/19 1352 06/30/19 0645 WBC 6.8 7.8 8.3 RBC 3.47* 3.04* 2.81* HGB 10.2* 9.0* 8.3* HCT 30.8* 27.5* 25.5* MCV 88.8 90.5 90.7 MCH 29.4 29.6 29.5 MCHC 33.1 32.7 32.5 PLT 267 220 213 Recent Labs Lab 06/28/19 1426 06/29/19 1352 06/30/19 0645 NA 133* 136 137 K 4.1 3.5 3.5 CL 92* 98* 101 CO2 33.3* 31.9 29.0 BUN 26* 30* 27* CR 1.31* 1.08* 0.92 GLU 570* 229* 46* BUNCREATININ 19.8 27.8* 29.3* GFRNON 43* 54* 66* GFR 50* 63* 76* estimated creatinine clearance is 59.6 mL/min (based on SCr of 0.92 mg/dL). Recent Labs Lab 06/28/19 1426 06/29/19 1352 06/30/19 0645 CA 9.5 8.9 8.5 Recent Labs Lab 06/28/19 1426 TP 8.1 ALB 2.9* TBIL 0.5 ALKP 75 AST 28 ALT 39 No results for input(s): APTT, INR, PTT in the last 168 hours. Lab Results Component Value Date CHOL 201 (H) 06/29/2019 TRI 123 06/29/2019 HDL 84 06/29/2019 LDL 92 06/29/2019 HGBA1C 11.4 (H) 05/08/2019 TSH 20.700 (H) 06/29/2019 Recent Labs Lab 06/28/19 1426 06/28/19 1942 06/28/19 2134 06/29/19 0235 TROP 0.130* 0.124* 0.125* 0.135* Results for orders placed or performed during the hospital encounter of 06/28/19 (from the past 168hour(s)) CULTURE URINE Collection Time: 06/28/19 6:09 PM Result Value Ref Range Spec. Description URINE [place] CATH Special Requests: NO SPECIAL REQUEST Culture Result: NO GROWTH 1 DAY Results for orders placed or performed during the hospital encounter of 06/28/19 (from the past 168hour(s)) CULTURE, BACTERIA, BLOOD Collection Time: 06/28/19 6:24 PM Result Value Ref Range Spec. Description BLOOD Special Requests: NO SPECIAL REQUEST Gram Stain Result GRAM POSITIVE COCCI RESEMBLING STAPHYLOCOCCUS SPECIES Gram Stain Result GRAM STAIN CALLED TO AND REPEATED BACK BY MANJINDER SRINIVASAN RN, AT 1215, 06/30/19. [facility] Culture Result: CULTURE REPORT TO FOLLOW. CULTURE, BACTERIA, BLOOD Collection Time: 06/28/19 6:24 PM Result Value Ref Range Spec. Description BLOOD Special Requests: NO SPECIAL REQUEST Gram Stain Result GRAM POSITIVE COCCI RESEMBLING STREPTOCOCCUS SPECIES Gram Stain Result GRAM STAIN CALLED TO AND REPEATED BACK BY ROLF DURBIN RN, AT 1335, 06/29/19. [facility] Culture Result: (AA) METHICILLIN RESISTANT STAPHYLOCOCCUS AUREUS DETECTED BY VERIGENE NUCLEIC ACID TEST FOLLOW ISOLATION PROTOCOL. Culture Result: (AA) ENTEROCOCCUS FAECALIS DETECTED BY VERIGENE NUCLEIC ACID TEST NO RESISTANCE MARKERS DETECTED BY VERIGENE NUCLEIC ACID TEST. Culture Result: CALLED RN FOR MRSA ELOISECOL ROLF LEE. PHARMACY CALLED AT [phone] FOR VERIGENE RESULTS TALKED TO AJ HAYWARD. Culture Result: (AA) GROWTH OF STAPHYLOCOCCUS AUREUS :SENSITIVITY TO FOLLOW Imaging USE ECHOCARDIOGRAM W CON Echocardiography Report Pat.Name: IRIS GIL.ID: [id number] .Date: 06/30/2019 Exam Time: 12:31:00 PM Study [...] 31.9 mm Right Ventricle 24.4 mm Major Colton 82.7 mm MMODE TA Tricuspid Annul 12.6 mm Signed 06/30/2019 02:55 PM Kirk Seaman M.D. SUNITA NAILS MD * Dayton Crockett, PharmD - 06/30/2019 12:08 PM CDT Vancomycin Pharmacy to Dose Day #3 Ordering Provider: Dr. Ardon Indication: Sepsis Goal Trough: 15-20 mcg/ml Ht/Wt: 5' 2 77.4kg Dose/Frequency: 1500mg q24h Date WBC SCr CrCl Tmax Trough 06/27 6.8 1.31 41.8 97.6 06/28 97.6 06/29 8.3 0.92 59.6 97.4 Other Antibiotics: - Cefepime Imaging: - CXR (06/27): no acute infiltrate demonstrated Cultures: - Blood: 1 of 2 growing MRSA and enterococcus faecalis (no resistance markers detected by verigene) - Urine: NGTD A/P: Pharmacy to dose vancomycin for this 64 YOF for sepsis. PMH significant for diabetes, hypertension,and schizophrenia. The patient was admitted through the ED after experiencing a fall at home. Regimen started at 1500mg q24h with initial trough scheduled prior to the fourth dose (06/30 @ 2130). Pharmacy will continue to follow. Thank you for the consult * Loraine Penaloza MD - 06/30/2019 9:30 AM CDT Hospitalist Daily Progress Note Subjective Patient hypoglycemic earlier. Mostly oriented but still makes some bizarre comments. Objective Filed Vitals: 06/29/19 2026 06/30/19 0025 06/30/19 0503 06/30/19 0809 BP: 130/62 142/68 149/79 (!) 117/39 Pulse: 74 70 75 77 Resp: Temp: 97.4 ??F (36.3 ??C) TempSrc: Axillary SpO2: 100% 98% 98% 100% Weight: 77.6 kg (171 lb 1.2 oz) Height: Intake/Output 24H Total: Intake/Output Summary (Last 24 hours) at 06/30/2019 1220 Last data filed at 06/30/2019 0254 Gross per 24 hour Intake 50 ml Output 550 ml Net -500 ml Physical Exam: -GENERAL: No acute distress, Well nourished -HEAD: Normocephalic, Atraumatic -EYES: Extraocular movements intact -LUNGS: Effort normal -NEURO: Awake, alert, oriented to self and time, No gross neuro deficits Medications ??? aspirin 325 mg Oral Daily ??? atorvastatin 40 mg Oral Daily ??? cefepime 2 g Intravenous Q12H ??? enoxaparin 40 mg Subcutaneous Nightly at bedtime ??? insulin glargine 10 Units Subcutaneous Nightly at bedtime ??? insulin lispro 0-16 Units Subcutaneous TID AC And ??? insulin lispro 0-8 Units Subcutaneous Nightly at bedtime ??? levothyroxine 50 mcg Oral Daily ??? vancomycin 1,500 mg Intravenous Q24H acetaminophen, dextrose, dextrose 10 % bolus, glucagon, nitroglycerin, ondansetron, polyethylene glycol Labs, Imaging, Other Studies Recent Labs Lab 06/28/19 1426 06/29/19 1352 06/30/19 0645 WBC 6.8 7.8 8.3 RBC 3.47* 3.04* 2.81* HGB 10.2* 9.0* 8.3* HCT 30.8* 27.5* 25.5* MCV 88.8 90.5 90.7 MCH 29.4 29.6 29.5 MCHC 33.1 32.7 32.5 PLT 267 220 213 RDW 14.7* 15.1* 15.1* MPV 11.0 9.8 10.5 PERNEU 74.0 79.7 76.2 PERLYM 16.1 12.2 15.4 PERMON 6.2 4.9 5.3 LYMC 1.09 0.95* 1.28 MONOC 0.42 0.38 0.44 EOSC 0.07 0.12 0.14 BASOC 0.04 0.04 0.05 DTYPE AUTOMATED DIFFERENTIAL AUTOMATED DIFFERENTIAL AUTOMATED DIFFERENTIAL Recent Labs Lab 06/28/19 1426 06/29/19 1352 06/30/19 0645 NA 133* 136 137 K 4.1 3.5 3.5 CL 92* 98* 101 CO2 33.3* 31.9 29.0 AGAP 7.7 6.1 7.0 BUN 26* 30* 27* CR 1.31* 1.08* 0.92 BUNCREATININ 19.8 27.8* 29.3* GFRNON 43* 54* 66* GFR 50* 63* 76* GLU 570* 229* 46* CA 9.5 8.9 8.5 TP 8.1 -- -- ALB 2.9* -- -- TBIL 0.5 -- -- ALKP 75 -- -- AST 28 -- -- ALT 39 -- -- Recent Labs Lab 06/29/19 1352 CHOL 201* TRI 123 HDL 84 LDL 92 TSH 20.700* No results for input(s): APTT, INR, PTT in the last 168 hours. Recent Labs Lab 06/28/19 1426 06/28/19194106/28/19213306/29/19 0235 TROP 0.130* 0.124* 0.125* 0.135* CPK 152 -- -- -- Recent Labs Lab 06/28/19 1824 06/29/19 0009 LACTICACID 3.7* 2.9* No results for input(s): PH, PCO2, PO2, [id number], BICARBWB, BASEDEFICIT, BASEEXCESS in the [id number] hours. No results found for this or any previous visit. Imaging Ct Cerv Spine Wo Con Result Date: [...] By: Xavier Costa MD, 06/28/2019 3:[address] Head Wo Con Result Date: 06/05/2019 CT OF THE BRAIN WITHOUT CONTRAST INDICATION: Confusion/delirium, altered LOC, unexplained TECHNIQUE: CT of the brain was performed without contrast. A dose lowering technique was used for this procedure, which may include, but is not limited to, dose reduction techniques, automated exposure control, the use of a iterative reconstruction, and ALARA (as low as reasonably achievable)/image gently techniques. . COMPARISON: There are no prior studies. FINDINGS: Images are somewhat compromised due tomotion. The posterior fossa structures show mild atrophy with chronic ischemic changes. In the region of the basal ganglia calcifications which appear chronic. The temporal fossa and the frontal fossa is unremarkable. There is mild atrophy with chronic ischemic changes. No acute extra-axial fluid. There is no midline shift. The detail of the osseous structures is somewhat limited because of motion. No definite acute bony abnormalities. IMPRESSION: Limited study due to motion. No evidence of intracranial hemorrhage or other definite acute abnormalities. Mild atrophy with chronic ischemic changes. Xr Chest Portable Result Date: 06/28/2019 Examination: [...] Old healed granulomatous disease. 4. Suboptimal exam. Xr Chest Portable Result Date: 06/05/2019 Examination: Chest x-ray 1 view Exam date/time: 06/05/2019 3:58 PM Reason For Exam: weakness Comparison: Old radiographs are from March 2010 Technique: Upright AP view of the chest demonstrated. Findings: Heart size is borderline. Mediastinum shows small calcifications in theaortic arch. Chronic large calcified granuloma in the right paratracheal region. In the left upper l obe there is a bandlike density which may represent atelectasis and scar tissue which is different than before. In the remainder of the lungs there are no focal infiltrates. Please correlate clinically. If the patient has any respiratory symptoms follow-up chest radiographs recommended in one to 2 weeks to reevaluate the left upper lobe. Osseous structures are intact. =====IMPRESSION:===== Borderline cardiomegaly and chronic calcified granuloma. In the left upper lobe there is a bandlike linear density which may be atelectasis and scar tissue rather than acute inflammation. The remainder of the lungs show no focal infiltrates. : Results for orders placed or performed during the hospital encounter of 06/28/19 [address] 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 : 1955 Requested By: AMANDA MOORE Order Number: [id number] Reading MD: Jonatan Aldrich Measurements Intervals [place]ton Rate: 70 P: 54 MO: 168 QRS: -43 QRSD: 117 T: 127 QT: 435 QTc: 470 Interpretive Statements SINUS RHYTHM MARKED LEFT AXIS DEVIATION POSSIBLE ANTERIOR MYOCARDIAL INFARCTION, OF INDETERMINATE AGE MODERATE T-WAVE ABNORMALITY, CONSIDER LATERAL ISCHEMIA Compared to ECG 06/05/2019 14:03:27 T-wave abnormality now present Possible ischemia now present Left anterior fascicular block no longer present ST (T wave) deviation no longer present Myocardial infarct finding still present Assessment & Plan Sepsis: Patient was found to be hypothermic in the ED with temperature of 93.9F and hypotension (pressure 89/56 mmHg which improved with IVF). Vancomycin and Cefepime were initiated for broad coverage, especially for skin given multiple ulcers found on exam. Monitor Cr, vanc trough Blood cx 1/2 with Staph aureus. Enterococcus and MRSA detected on verigene Continue IVF. Monitor VS closely. ID consulted. Recs appreciated May also need to consult Vascular or General Surgery for wound debridement Echo ?? Elevated Troponin Level: Initial Troponin level found to be 0.130. Admit to Telemetry for further cardiac monitoring and management. Trend Troponin levels. EKG revealed T-wave inversions. Cardiology consulted in the ED with recommendations to continue trending cardiac enzymes, echocardiogram and ASA. Await further recommendations. ?? Acute metabolicEncephalopathy: Due to multiple causes, including infection, hyperglycemia, ABDIRASHID, NSTEMI. CT of the Head performed in the ED revealed no acute intracranial process; stable cortical atrophy and small vessel disease with left supraorbital scalp swelling. Treat as noted above and monitor mental status. Hold off on MRI and carotid Doppler study ordered as likely metabolic encephalopathy Improving Type 2 Diabetes Mellitus with Hyperglycemia: Patient presented with glucose > 500, not in DKA. Per ER documentation, patient's insulin supply ran out. Patient given IV insulin in the ED. Lantus at HS and add SSI per protocol. Reduce dose with hypoglycemia Monitor Accu-checks both AC and HS. ?? ABDIRASHID: Patient presented with BUN of 21 and SCr of 1.31, up from 0.92 last month. Hydration with IVF ordered. Improving Monitor with BMP in the AM. Multiple pressure ulcers stage 2-3 POA Wound care c/s As above Obesity, BMI 31.21 ACP Full code Multiple admissions 2/2 noncompliance. SNF recommended last admission but patient and family ultimately declined. SW consulted for SNF placement. ?? DVT ppx: Lovenox ordered. Plan of care discussed with RN. LORAINE PENALOZA MD * Silvia Bartlett RN - 06/30/2019 1:52 AM CDT Problem: Reduced risk for falls/injury Goal: Reduced Risk for Falls/Injury Outcome: Progressing Patient has had no falls on this shift - bed alarm remains on. * Joleen Juarez, PharmD - 06/29/2019 7:14 PM CDT Date/Time Alert Result: 06/29/2019 7:10 PM Organism isolated: MRSA, Enterococcus faecalis in 1/2 blood cultures Antimicrobial Resistance Markers present: None Active antibiotic orders prior to intervention: Vancomycin and cefepime Active antibiotic after intervention: Vancomycin and cefepime * Dayton Crockett PharmD - 06/29/2019 12:41 PM CDT Vancomycin Pharmacy to Dose Day #2 Ordering Provider: Dr. Ardon Indication: Sepsis Goal Trough: 15-20 mcg/ml Ht/Wt: 5' 2 77.4kg Dose/Frequency: 1500mg q24h Date WBC SCr CrCl Tmax Trough 06/27 6.8 1.31 41.8 97.6 06/28 97.6 Other Antibiotics: - Cefepime Imaging: - CXR (06/27): no acute infiltrate demonstrated Cultures: - Blood: pending - Urine: pending A/P: Pharmacy to dose vancomycin for this 64 YOF for sepsis. PMH significant for diabetes, hypertension,and schizophrenia. The patient was admitted through the ED after experiencing a fall at home. Regimen started at 1500mg q24h with initial trough scheduled prior to the fourth dose (06/30 @ 2130). Pharmacy will continue to follow. Thank you for the consult * Loraine Penaloza MD - 06/29/2019 11:35 AM CDT Hospitalist Daily Progress Note Subjective Patient awake and alert but pleasantly confused. Conversation somewhat inappropriate. Objective Filed Vitals: 06/29/19 0045 06/29/19 0410 06/29/19 0823 06/29/19 1139 BP: 142/74 (!) 156/67 136/77 116/53 Pulse: 72 76 56 108 Resp: Temp: 97.5 ??F (36.4 ??C) 97.6 ??F (36.4 ??C) TempSrc: Oral Oral SpO2: 96% 98% 100% 100% Weight: Height: Intake/Output 24H Total: No intake or output data in the 24 hours ending 06/29/19 1549 Physical Exam: -GENERAL: No acute distress, Well nourished -HEAD: Normocephalic, Atraumatic -EYES: Extraocular movements intact -LUNGS: Effort normal -NEURO: Awake, alert, oriented at least to self, No gross neuro deficits Medications ??? aspirin 325 mg Oral Daily ??? atorvastatin 40 mg Oral Daily ??? cefepime 2 g Intravenous Q12H ??? enoxaparin 40 mg Subcutaneous Nightly at bedtime ??? insulin glargine 20 Units Subcutaneous Nightly at bedtime ??? insulin lispro 0-16 Units Subcutaneous TID AC And ??? insulin lispro 0-8 Units Subcutaneous Nightly at bedtime ??? levothyroxine 50 mcg Oral Daily ??? vancomycin 1,500 mg Intravenous Q24H ??? sodium chloride 75 mL/hr at 06/29/19 0429 acetaminophen, nitroglycerin, ondansetron, polyethylene glycol Labs, Imaging, Other Studies Recent Labs Lab 06/28/19 14206/29/19 1352 WBC 6.8 7.8 RBC 3.47* 3.04* HGB 10.2* 9.0* HCT 30.8* 27.5* MCV 88.8 90.5 MCH 29.4 29.6 MCHC 33.1 32.7 PLT 267 220 RDW 14.7* 15.1* MPV 11.0 9.8 PERNEU 74.0 79.7 PERLYM 16.1 12.2 PERMON 6.2 4.9 LYMC 1.09 0.95* MONOC 0.42 0.38 EOSC 0.07 0.12 BASOC 0.04 0.04 DTYPE AUTOMATED DIFFERENTIAL AUTOMATED DIFFERENTIAL Recent Labs Lab 06/28/19142506/29/19 1352 NA 133* 136 K 4.1 3.5 CL 92* 98* CO2 33.3* 31.9 AGAP 7.7 6.1 BUN 26* 30* CR 1.31* 1.08* BUNCREATININ 19.8 27.8* GFRNON 43* 54* GFR 50* 63* GLU 570* 229* CA 9.5 8.9 TP 8.1 -- ALB 2.9* -- TBIL 0.5 -- ALKP 75 -- AST 28 -- ALT 39 -- Recent Labs Lab 06/29/19 1352 CHOL 201* TRI 123 HDL 84 LDL 92 TSH 20.700* No results for input(s): APTT, INR, PTT in the last 168 hours. Recent Labs Lab 06/28/19 14206/28/19 19406/28/19 2134 06/29/19 0235 TROP 0.130* 0.124* 0.125* 0.135* CPK 152 -- -- -- Recent Labs Lab 06/28/19 1824 06/29/19 0009 LACTICACID 3.7* 2.9* No results for input(s): PH, PCO2, PO2, [id number], BICARBWB, BASEDEFICIT, BASEEXCESS in the [id number] hours. No results found for this or any previous visit. Imaging Ct Cerv Spine Wo Con Result Date: [...] By: Xavier Costa MD, 06/28/2019 3:[address] Head Wo Con Result Date: 06/05/2019 CT OF THE BRAIN WITHOUT CONTRAST INDICATION: Confusion/delirium, altered LOC, unexplained TECHNIQUE: CT of the brain was performed without contrast. A dose lowering technique was used for this procedure, which may include, but is not limited to, dose reduction techniques, automated exposure control, the use of a iterative reconstruction, and ALARA (as low as reasonably achievable)/image gently techniques. . COMPARISON: There are no prior studies. FINDINGS: Images are somewhat compromised due tomotion. The posterior fossa structures show mild atrophy with chronic ischemic changes. In the region of the basal ganglia calcifications which appear chronic. The temporal fossa and the frontal fossa is unremarkable. There is mild atrophy with chronic ischemic changes. No acute extra-axial fluid. There is no midline shift. The detail of the osseous structures is somewhat limited because of motion. No definite acute bony abnormalities. IMPRESSION: Limited study due to motion. No evidence of intracranial hemorrhage or other definite acute abnormalities. Mild atrophy with chronic ischemic changes. Xr Chest Portable Result Date: 06/28/2019 Examination: [...] Old healed granulomatous disease. 4. Suboptimal exam. Xr Chest Portable Result Date: 06/05/2019 Examination: Chest x-ray 1 view Exam date/time: 06/05/2019 3:58 PM Reason For Exam: weakness Comparison: Old radiographs are from March 2010 Technique: Upright AP view of the chest demonstrated. Findings: Heart size is borderline. Mediastinum shows small calcifications in theaortic arch. Chronic large calcified granuloma in the right paratracheal region. In the left upper l obe there is a bandlike density which may represent atelectasis and scar tissue which is different than before. In the remainder of the lungs there are no focal infiltrates. Please correlate clinically. If the patient has any respiratory symptoms follow-up chest radiographs recommended in one to 2 weeks to reevaluate the left upper lobe. Osseous structures are intact. =====IMPRESSION:===== Borderline cardiomegaly and chronic calcified granuloma. In the left upper lobe there is a bandlike linear density which may be atelectasis and scar tissue rather than acute inflammation. The remainder of the lungs show no focal infiltrates. : Results for orders placed or performed during the hospital encounter of 06/28/19 ECG 12 lead Narrative [facility] [address] Test Date: 2019-06-28 Pat Name: IRIS GIL Department: Room: [id number] Gender: Female Tennis Director: [place] : 1955 Requested By: AMANDA MOORE Order Number: [id number] Reading MD: Jonatan Aldrich Measurements Intervals [place]ton Rate: 70 P: 54 MO: 168 QRS: -43 QRSD: 117 T: 127 QT: 435 QTc: 470 Interpretive Statements SINUS RHYTHM MARKED LEFT AXIS DEVIATION POSSIBLE ANTERIOR MYOCARDIAL INFARCTION, OF INDETERMINATE AGE MODERATE T-WAVE ABNORMALITY, CONSIDER LATERAL ISCHEMIA Compared to ECG 06/05/2019 14:03:27 T-wave abnormality now present Possible ischemia now present Left anterior fascicular block no longer present ST (T wave) deviation no longer present Myocardial infarct finding still present Assessment & Plan Sepsis Due to Unknown Organism: Patient was found to be hypothermic in the ED with temperature of 93.9F and hypotension (pressure 89/56 mmHg which improved with IVF). Vancomycin and Cefepime were initiated for broad coverage, especially for skin given multiple ulcers found on exam. Monitor Cr, vanc trough Continue IVF. Blood cultures x 2 drawn- follow evolution and adjust management accordingly. Monitor VS closely. ?? Elevated Troponin Level: Initial Troponin level found to be 0.130. Admit to Telemetry for further cardiac monitoring and management. Trend Troponin levels. EKG revealed T-wave inversions. Cardiology consulted in the ED with recommendations to continue trending cardiac enzymes, echocardiogram and ASA. Await further recommendations. ?? Acute Encephalopathy: Due to multiple causes, including infection, hyperglycemia, ABDIRASHID, NSTEMI. CT of the Head performed in the ED revealed no acute intracranial process; stable cortical atrophy and small vessel disease with left supraorbital scalp swelling. Treat as noted above and monitor mental status. Hold off on MRI and carotid Doppler study ordered as likely metabolic cencephalopathy Type 2 Diabetes Mellitus with Hyperglycemia: Patient presented with glucose > 500, not in DKA. Per ER documentation, patient's insulin supply ran out. Patient given IV insulin in the ED. Lantus at HS and add SSI per protocol. Monitor Accu-checks both AC and HS. ?? ABDIRASHID: Patient presented with BUN of 21 and SCr of 1.31, up from 0.92 last month. Hydration with IVF ordered. Monitor with BMP in the AM. Obesity, BMI 31.21 ACP Full code Multiple admissions 2/2 noncompliance. SNF recommended last admission but patient and family ultimately declined. SW consulted for SNF placement. ?? DVT ppx: Lovenox ordered. Plan of care discussed with RN. LORAINE PENALOZA MD * Zoltan Boyce, PT - 06/29/2019 10:30 AM CDT 06/29/19 1000 Therapy Visit Ordering Provider MD DUGLAS Subjective PT Orders received and EMR reviewed. PT atte,pted to complete Evaluation following Occupational therapy evaluation. Per OT the patient has a long standing history of falls and not safe to ambulate with at this time. PT will attempt PT evaluation on next day if the is still appropriate. Reason for admission ACUTE ENCEPHALOOPATHY, FALL ZOLTAN BOYCE, PT * Ailyn Elva Santamaria, OTR - 06/29/2019 10:01 AM CDT 06/29/19 0900 Therapy Visit Reason for admission ACUTE ENCEPHALOOPATHY, FALL Comorbidities Relevant to OT SEPSIS, DM, HTN, SCHIZOPHRENIA, HYPOTHERMC, BREAST CA Ordering Provider MD DUGLAS Verified Two Patient Identifiers Yes Patient consents to therapy Yes Acute Inpatient OT Time Calculation OT Start Time 0900 OT Stop Time 0945 OT Time Calculation (min) 45 min Precautions Precautions Yes/No Yes Weight Bearing Status Full weight bearing General Precautions Bed Alarm;Chair Alarm;Fall Risk;Monitor Vitals (I.V LINE) Instructed on Precautions Yes;Verbalizes understanding Subjective Subjective OT ORDERS RECEIVED. RECEIVED CONSENT FROM NURSING TO SEE. PT AGREEABLE TO PARTICIPATE Home Living Type of Home Apartment Home Layout One level Home Accessibility 0 Steps to enter Bathroom Shower/Tub Walk-in shower Bathroom Toilet Standard Toilet Home Equipment Wheelchair-manual;2 Wheeled walker Additional Comments PT REPORTS TAKING SPONGE BATHS AT HOME Prior Function Level of [place] Needs assistance with ADLs;Needs assistance with homemaking;Needs assistance with functional transfers Device used at baseline 2 Wheeled walker Baseline Ambulation Distance/Assistance HOUSEHOLD OR LESS Fall History Yes Reason for fall LOB, IN THE MIDDLE OF THE NIGHT Most recent fall ADMISSION How many falls in the past year? SEVERAL Lives With Family (GRANDDTR) Receives Help From Family ADL Assistance Needs assistance Homemaking Assistance Needs assistance Pain Pain Patient does not offer or c/o pain Activity Tolerance Endurance Tolerates 45 min activity with rests Activity Tolerance Comments FAIR TO POOR, ALERTNESS IS VARY Vision - Basic Assessment Current Vision Wears glasses (BROKE CURRENTLY, HEARING NTACT PER PT) Vision - Complex Assessment Head Position WDL Cognition Overall Cognitive Status Impaired Arousal/Alertness Generalized responses Attention Span Difficulty attending to directions Orientation Level Oriented to person;Oriented to place;Oriented to time Following Commands Follows one step commands with repetition Safety Judgment Decreased awareness of need for safety Awareness of Errors Decreased awareness of errors Deficits Decreased awareness of deficits Problem Solving Assistance required to generate solutions Motor Planning Cues to use objects appropriately Perseveration Not present Initiation Cues to initiate tasks Cognition Complex Affect Variable Overall Extremity Assessment Upper Extremity BRENDON UES AROM WFLS, STRENGTH 3/5 Hand Function Hand Dominance Right Gross Grasp Right;Left;Functional Coordination Impaired Sensation Light Touch No apparent deficits (UES PER PT REPORT) ADL Eating/Feeding Assistance Maximal Eating/Feeding Deficit Setup;Verbal cueing;Increased time to complete;Scoop assist;Bringing food tomouth assist Eating/Feeding Comment NO TEETH Grooming Assistance Maximal Bathing Assistance Maximal;Total;Sitting upright in bed Bathing Comment REACHING ALL BODY PARTS, BALANCE UE Dressing Assistance Maximal UE Dressing Deficit Thread LUE;shoe coverer head;Pull around back LE Dressing Assistance Total LE Dressing Comment DISTAL REACHING, THREADING, BALANCE Toileting Assistance Total Toileting Deficit Clothing management up;Clothing management down;Perineal hygiene Bed Mobility Supine to Sit Max assist to right Functional Transfers Sit to Stand Mod assist;Max assist;Assist of 2 Bed to Chair Mod assist;Assist of 2 Toilet Transfers Mod assist;Max assist;Assist x 2 (BSC) Balance Sitting - Static SBA Sitting - Dynamic Min Assist;Mod Assist Standing - Static Mod Assist;Max Assist;Assist of 2 Persons;Support of both upper extremities (WW) Standing - Dynamic Mod Assist;Max Assist;Assist of 2 Persons;Support of both upper extremities (WW) Proprioception Proprioception No apparent deficits Assessment Occupational Profile and History Complexity High (Extensive) Performance Skills Deficits Bathing/showering;Dressing;Functional mobility;Personal hygiene and grooming;Safety and emergency maintenance;Toileting Performance Deficit Level High (5 or more deficits) Clinical Decision Making High (max modifications) Complexity Level of Evaluation High Prognosis Fair;Guarded OT Assess/Eval Other (Comment) PT WOULD BENEFIT FROM SKILLED OT SERVICES TO ADDRESS ADLS, STRENGTH,FUNCTIONAL TRANSFERS/MOBILITY SKILLS BEFORE RETURNING HOME WITH GRANDDTR. PT HAS A HX OF FALLS. PT FOLLOWS ONE STEP COMMANDS WITH REPETITION, O X 3. ALERTNESS WILL VARY. PT WAS COOPERATIVE WITH THE THERAPIST ONCE AROUSED. Patient/Family Training Self Cares X Transfer Training X DME Education X Precautions X Other (Comment) 1;1, WITH THE PT, FAIR INSIGHT TO THE PURPOSE/GOALS OF THERAPY Other Treatment Provided Other Treatment Provided (Comment) EATING Recommendation OT Recommendation OT during Hospitalization;OT at [facility] OT Equipment Recommended To Be Determined Plan OT Treatment/Intervention Self-care training;Therapeutic exercises;Therapeutic activities;Neuromuscular re-education;Functional activity;Safety Progress Slow progress, decreased activity tolerance OT Frequency 3 times/week OT plan for next session ADLS If this is the last treatment note, it will serve as the discharge summary Yes End of Session Safety End of Session Safety Chair alarm set/activated;Call light within reach;Nursing aware of session * Marley Ta PharmD - 06/28/2019 6:25 PM CDT VANCOMYCIN INITIAL WORK UP NOTE ACTUAL HT/WT: Ht Readings from Last 1 Encounters: 06/28/19 5' 2 (1.575 m) . Wt Readings from Last 1 Encounters: 06/28/19 77.4 kg (170 lb 10.2 oz) Date: WBC: SCR: CRCL: TMAX: 06/27 6.8 1.31 41.8ml/min 92.5 Assessment: Vancomycin/cefepime day 1 for sepsis. This 64 YOF has a PMH significant for diabetes, hypertension, and schizophrenia. The patient was admitted through the ED after experiencing a fall athome. Plan: Will initiate vancomycin at 1500mg every 24 hours per protocol. A trough will be checked before the 4th dose due 06/30 1830, goal at this time is 15-20. Addendum: First dose not administered until patient reached telemetry. Adjusted timing of subsequent doses and timing of trough to 06/30 @ 2130. Will continue to follow. documented in this encounter H&P Notes * Sunita Nails MD - 07/04/2019 1:32 PM CDT HISTORY AND PHYSICAL INTERVAL NOTE: Ms. Iris Gil has bacteremia and is here for a STAR. No difficulty swallowing. No teeth. Nodifficulty bending neck. Last meal was last night. Filed Vitals: 07/04/19 0035 07/04/19 0411 07/04/19 0711 07/04/19 1147 BP: 111/78 116/81 134/57 141/48 Pulse: 80 80 73 66 Resp: Temp: 98.8 ??F (37.1 ??C) 98.8 ??F (37.1 ??C) 98.7 ??F (37.1 ??C) 97.4 ??F (36.3 ??C) TempSrc: Oral Oral Oral Oral SpO2: 98% 97% 96% 100% Weight: 76.3 kg (168 lb 3.4 oz) Height: Physical Exam: WD, elderly female Lungs no wheezes CV RRR, no murmur abd protuberant Ext no edema. CHOLESTEROL Date Value Ref Range Status 06/29/2019 201 (H) <200 MG/DL Final TRIGLYCERIDE Date Value Ref Range Status 06/29/2019 123 <150 MG/DL Final HDL Date Value Ref Range Status 06/29/2019 84 >40.0 MG/DL Final LDL (CALCULATED) Date Value Ref Range Status 06/29/2019 92 <100 MG/DL Final SODIUM Date Value Ref Range Status 07/04/2019 136 136 - 145 MMOL/L Final POTASSIUM Date Value Ref Range Status 07/04/2019 3.7 3.5 - 5.1 MMOL/L Final CHLORIDE S/P/B Date Value Ref Range Status 07/04/2019 100 100 - 108 MMOL/L Final CO2 Date Value Ref Range Status 07/04/2019 31.8 21 - 32 MMOL/L Final BUN Date Value Ref Range Status 07/04/2019 13 7 - 18 MG/DL Final CREATININE S/P/B Date Value Ref Range Status 07/04/2019 0.85 0.55 - 1.02 MG/DL Final CALCIUM Date Value Ref Range Status 07/04/2019 8.9 8.5 - 10.1 MG/DL Final GLUCOSE Date Value Ref Range Status 07/04/2019 137 (H) 70 - 99 MG/DL Final ANION GAP Date Value Ref Range Status 07/04/2019 4.2 (L) 5 - 15 MMOL/L Final TOTAL PROTEIN Date Value Ref Range Status 07/04/2019 7.0 6.4 - 8.2 G/DL Final ALBUMIN S/P/B Date Value Ref Range Status 07/04/2019 2.2 (L) 3.4 - 5.0 G/DL Final ALT Date Value Ref Range Status 07/04/2019 22 14 - 55 U/L Final WBC Date Value Ref Range Status 07/04/2019 5.8 4.5 - 11.0 x10'3/uL Final HGB Date Value Ref Range Status 07/04/2019 9.0 (L) 12.0 - 16.0 G/DL Final PLT Date Value Ref Range Status 07/04/2019 161 130 - 400 x10'3/uL Final HGB A1C Date Value Ref Range Status 05/08/2019 11.4 (H) 4.2 - 6.3 % Final Comment: ADA GUIDELINES 2009 5.7 TO 6.4% INCREASED RISK OF DIABETES > OR = 6.5% CONSISTENT WITH DIABETES TSH Date Value Ref Range Status 06/29/2019 20.700 (H) 0.358 - 3.74 uIU/ML Final Comment: HIGH DOSES OF BIOTIN MAY INTERFERE WITH THIS TEST RESULT. CORRELATION TO CLINICAL HISTORY AND PRESENTATION RECOMMENDED. No results found for: APTT, INR, PTT I have reviewed Iris Gil History & Physical which was performed within the past 30 days. After examining Iris Gil, no change has occurred in the patient's condition since the H&P was completed. Informed Consent Discussion: Risks,side effects, benefits, alternatives as well as the consequencesof not performing the surgery/procedure were discussed with the patient and/or family/personal assistance representative. The risks, benefits and alternatives to a STAR were discussed with the patient. The risksincluding pain, infection, bleeding, esophageal perforation,stroke, heart attack, , renal failure, aspiration pneumonia, hypotension, need for emergency surgery, allergic reaction, adverse arrhythmia, hypoxemia, among other risks were discussed. There is low likelihood any major complications will occur but it is a possibility. Questions were answered and the patient/family/personal assistance representative verbalized understanding and desires to proceed. Previous Adverse Experience with Sedation, Analgesia, or Anesthesia? No ASA Classification: 3 Mallampati: 3 NPO: after midnight Planned Sedation/Analgesic Agent(s): Propofol Planned Procedure(s): STAR Signed: SUNITA NAILS MD Source Note - Sunita Nails MD - 06/29/2019 1:48 PM CDT Cardiology Consult Indication for Consult Advice and opinion regarding elevated troponin History Iris Gil is a 64-year-old female who has B breast cancer, dementia, diabetes mellitus type 2 uncontrolled, peripheral vascular disease, hyperlipemia, schizophrenia and hypertension . She was admitted on 06/28/2019 1:27 PM for fall and laceration to her left presybeterian. She was found to have pin point pupils and received a dose of Narcan without significant response. She was hypothermic At 92.5F and required the bare hugger. She had hyperglycemia but no evidence of DKA so she was started on IV fluids. Her troponin was noted to be elevated at 0.135. Cardiology was consulted to see her. Mrs. Gil is not able to say what happened to her. She is fixated on looking for a scale that isnot there. She says that she was unable to get up on the scale herself and she fell down and hit her head. She is not sure why she was trying to weigh herself. She currently denies any chest pain, fever sweats or chills. She did have some fevers before but is not able to say when or how high her temperature was. She does report shortness of breath as well as some nausea but no vomiting. She thinks that she is in [place] but she is not sure actually where. Past Medical History: Diagnosis Date ??? Cancer (CMS/HCC) breast ??? Diabetes mellitus (CMS/HCC) ??? Disease of thyroid gland ??? Hypertension ??? PVD (peripheral vascular disease) (CMS/HCC) ??? Schizophrenia (CMS/HCC) Past Surgical History: Procedure Laterality Date ??? BREAST SURGERY Bilateral ??? KNEE SURGERY Right ??? REMOVAL OF OVARY(S) Left ??? UPPER ARM/ELBOW SURGERY UNLISTED Right Social History Tobacco Use ??? Smoking status: Never Smoker ??? Smokeless tobacco: Never Used Substance Use Topics ??? Alcohol use: No Frequency: Never ??? Drug use: No Family History Family history unknown: Yes ??? aspirin 325 mg Oral Daily ??? atorvastatin 40 mg Oral Daily ??? cefepime 2 g Intravenous Q12H ??? enoxaparin 40 mg Subcutaneous Nightly at bedtime ??? insulin glargine 20 Units Subcutaneous Nightly at bedtime ??? insulin lispro 0-16 Units Subcutaneous TID AC And ??? insulin lispro 0-8 Units Subcutaneous Nightly at bedtime ??? levothyroxine 50 mcg Oral Daily ??? vancomycin 1,500 mg Intravenous Q24H ??? sodium chloride 75 mL/hr at 06/29/19 0429 acetaminophen, nitroglycerin, ondansetron, polyethylene glycol Prior to Admission medications Medication Sig Start Date End Date Taking? Authorizing Provider chlorthalidone 25 MG tablet Take 1 tablet (25 mg total) by mouth daily. 05/17/19 Fabiola Carter MD gabapentin 300 MG capsule Take 1 capsule (300 mg total) by mouth 3 (three) times daily. 05/16/19 Fabiola Carter MD insulin glargine (LANTUS SOLOSTAR) 100 UNIT/ML injection (PEN) Inject 20 Units into the skin nightly at bedtime. 06/07/19 Loraine Penaloza MD levothyroxine 50 MCG tablet Take 1 tablet (50 mcg total) by mouth daily. 06/08/19 Lroaine Penaloza MD Allergies Allergen Reactions ??? Codeine Nausea and Vomiting Review of Systems Unable to perform ROS: Acuity of condition (limited by confusion) Constitutional: Negative for chills and fever. Respiratory: Positive for shortness of breath. Cardiovascular: Negative for chest pain. Musculoskeletal: Positive for falls. Endo/Heme/Allergies: Bruises/bleeds easily. Physical Exam Filed Vitals: 06/29/19 0045 06/29/19 0410 06/29/19 0823 06/29/19 1139 BP: 142/74 (!) 156/67 136/77 116/53 Pulse: 72 76 56 108 Resp: Temp: 97.5 ??F (36.4 ??C) 97.6 ??F (36.4 ??C) TempSrc: Oral Oral SpO2: 96% 98% 100% 100% Weight: Height: Physical Exam: Physical Exam Constitutional: She is oriented to person, place, and time. She appears well- developed and well-nourished. No distress. HENT: Nose: No mucosal edema. Mouth/Throat: Oropharynx is clear and moist and mucous membranes are normal. No oropharyngeal exudate. Bandage on her left forehead Neck: Neck supple. No JVD present. Carotid bruit is not present. Cardiovascular: Normal rate, regular rhythm, S1 normal, S2 normal and intact distal pulses. No extrasystoles are present. Exam reveals no gallop. No murmur heard. Pulmonary/Chest: Effort normal. No respiratory distress. She has no wheezes. Right breast has a lump with a scar-? Seroma. Abdominal: Soft. Bowel sounds are normal. She exhibits distension. She exhibits no mass. There is no hepatosplenomegaly. There is tenderness. Large hard area on her abdomen Genitourinary: Genitourinary Comments: Kaplan catheter with red urine Musculoskeletal: She exhibits edema (Fine wrinkled skin on legs). She exhibits no deformity. Neurological: She is alert and oriented to person, place, and time. Skin: Skin is warm and dry. No erythema. Psychiatric: She has a normal mood and affect. Her behavior is normal. Thought content normal. Recent Labs Lab 06/28/19 14206/29/19 1352 WBC 6.8 7.8 RBC 3.47* 3.04* HGB 10.2* 9.0* HCT 30.8* 27.5* MCV 88.8 90.5 MCH 29.4 29.6 MCHC 33.1 32.7 PLT 267 220 Recent Labs Lab 06/28/19142506/29/19 1352 NA 133* 136 K 4.1 3.5 CL 92* 98* CO2 33.3* 31.9 BUN 26* 30* CR 1.31* 1.08* GLU 570* 229* BUNCREATININ 19.8 27.8* GFRNON 43* 54* GFR 50* 63* estimated creatinine clearance is 50.7 mL/min (A) (based on SCr of 1.08 mg/dL (H)). Recent Labs Lab 06/28/19 1426 06/29/19 1352 CA 9.5 8.9 Recent Labs Lab 06/28/19 1426 TP 8.1 ALB 2.9* TBIL 0.5 ALKP 75 AST 28 ALT 39 No results for input(s): APTT, INR, PTT in the last 168 hours. Lab Results Component Value Date CHOL 201 (H) 06/29/2019 TRI 123 06/29/2019 HDL 84 06/29/2019 LDL 92 06/29/2019 HGBA1C 11.4 (H) 05/08/2019 TSH 20.700 (H) 06/29/2019 Recent Labs Lab 06/28/19 1426 06/28/19 1942 06/28/19 2134 06/29/19 0235 TROP 0.130* 0.124* 0.125* 0.135* No results found for this visit on 06/28/19 (from the past 168 hour(s)). Results for orders placed or performed during the hospital encounter of 06/28/19 (from the past 168hour(s)) CULTURE, BACTERIA, BLOOD Collection Time: 06/28/19 6:24 PM Result Value Ref Range Spec. Description BLOOD Special Requests: NO SPECIAL REQUEST Culture Result: NO GROWTH 1 DAY CULTURE, BACTERIA, BLOOD Collection Time: 06/28/19 6:24 PM Result Value Ref Range Spec. Description BLOOD Special Requests: NO SPECIAL REQUEST Gram Stain Result GRAM POSITIVE COCCI RESEMBLING STREPTOCOCCUS SPECIES Gram Stain Result GRAM STAIN CALLED TO AND REPEATED BACK BY ROLF DURBIN RN, AT 1335, 06/29/19. DJW Culture Result: CULTURE REPORT TO FOLLOW. EKG: Results for orders placed or performed during the hospital encounter of 06/28/19 ECG 12 lead Narrative [facility] [address] Test Date: 2019-06-28 Pat Name: IRIS GIL Department: Room: [place] [address] Gender: Female Tennis Director: DIONICIO : 1955 Requested By: AMANDA MOORE Order Number: [id number] Reading MD: Jonatan Aldrich Measurements Intervals [place] Rate: 70 P: 54 MO: 168 QRS: -43 QRSD: 117 T: 127 QT: 435 QTc: 470 Interpretive Statements SINUS RHYTHM MARKED LEFT AXIS DEVIATION POSSIBLE ANTERIOR MYOCARDIAL INFARCTION, OF INDETERMINATE AGE MODERATE T-WAVE ABNORMALITY, CONSIDER LATERAL ISCHEMIA Compared to ECG 06/05/2019 14:03:27 T-wave abnormality now present Possible ischemia now present Left anterior fascicular block no longer present ST (T wave) deviation no longer present Myocardial infarct finding still present ECG was reviewed personally. Old anterior ID. NSC from ECG on . Imaging: CT CERV SPINE WO CON Narrative: Examination: CT of the cervical spine. Exam time: 1521 hours. Clinical history: Trauma. Patient fell. Comparison: None. Technique: Thin section spiral axial scans were acquired from the skull base through the T1-2 levelwithout contrast. Sagittal and coronal reconstructions were performed from the data set. A dose lowering technique was used for this procedure, which may include, but is not limited to, dose reduction techniques, automated exposure control, the use of iterative reconstruction and ALARA/Image Gentlytechniques. Findings: There is no fracture or dislocation. The reconstructions confirm maintenance of vertebralbody height. Mild reversal of the normal lordosis and minimal anterolisthesis at C4-5 are attributed to the presence of the collar. Alignment is otherwise satisfactory. There is disc narrowing and paravertebral osteophyte formation at C5-6, C6-7 and C7-T1. The other intervertebral discs are maintained normally in height. There is mild generalized facet arthropathy. The neural foramina and centralcanal appear patent. The spinal canal contents, as visualized, appear unremarkable. There is no paraspinal edema or hematoma. There is atherosclerotic calcification in the carotid distributions bilaterally. Impression: IMPRESSION: 1. No acute traumatic injury identified. 2. Spondylosis as described. 3. Bilateral carotid atherosclerosis. Interpreted By: Xavier Costa MD, 06/28/2019 3:[address] HEAD WO CON Narrative: Examination: CT of the head without contrast. [...] calcification in the basal ganglia is again evident. There is stable periventricular decreased attenuation, compatible with small vessel disease. Intracranially, nonew areas of abnormal x-ray attenuation are identified. In particular, there is no mass, hemorrhageor sign of acute stroke. No extracerebral fluid collections. The skull appears intact. The mastoid air cells and visualized paranasal sinuses appear clear. There is left supraorbital scalp swelling. Impression: IMPRESSION: 1. No acute intracranial process identified. 2. Stable cortical atrophy and small vessel disease. 3. Left supraorbital scalp swelling. Interpreted By: Xavier Costa MD, 06/28/2019 3:35 PM XR CHEST PORTABLE Narrative: Examination: Chest x-ray 1 view Exam date/time: [...] old healed granulomatous disease. Tiny right granuloma. Impression: =====IMPRESSION:===== 1. No acute infiltrate demonstrated. 2. Mild cardiomegaly. 3. Old healed granulomatous disease. 4. Suboptimal exam. Assessment Encephalopathy acute Elevated troponin Essential hypertension Mixed hyperlipidemia Plan Sepsis/ Encephalopathy Per others Elevated troponin with an abnormal ECG. PEACE score of 2. No real rise or fall and troponin. Doubt ACS. Echocardiogram is pending. Continues on aspirin. Suspect there is underlying coronary artery disease given her history of diabetes mellitus type 2, hypertension, hyperlipidemia and PVD. Could consider a stress test at some point for risk stratification. Diabetes mellitus type 2 uncontrolled. hypertension- pressures have been variable. Monitor for now Hyperlipidemia. Start statin. SUNITA NAILS MD * Savanna Ardon MD - 06/28/2019 5:01 PM CDT Hospitalist History and Physical Patient: Iris Gil Date: 06/29/2019 female, 64-year-old Admit Date: 06/28/2019 Attending: Loraine Penaloza, * REASON FOR ADMISSION: Fall and Hyperglycemia HISTORY OF PRESENT ILLNESS: Iris Gil is a 64-year-old female with past medical history significant for Type 2 Diabetes Mellitus, HTN and Hypothyroidism who was brought to the ED for evaluation after a fall while at her granddaughter's home. Upon arrival, Ms. Gil was found to be confused with elevated glucose of 570 in addition to an elevated Troponin level. Upon seeing the patient, she was found to be alert only to self with no c/o chest pain/ pressure nor SOB. She was also found to be hypothermic for which a Kain Hugger was placed. Allergy Allergies Allergen Reactions ??? Codeine Nausea and Vomiting Medication list Medications Prior to Admission Medication Sig Dispense Refill ??? chlorthalidone 25 MG tablet Take 1 tablet (25 mg total) by mouth daily. 30 tablet 0 ??? gabapentin 300 MG capsule Take 1 capsule (300 mg total) by mouth 3 (three) times daily. 90 capsule 0 ??? insulin glargine (LANTUS SOLOSTAR) 100 UNIT/ML injection (PEN) Inject 20 Units into the skin nightly at bedtime. 6 mL 0 ??? levothyroxine 50 MCG tablet Take 1 tablet (50 mcg total) by mouth daily. 30 tablet 0 No current facility-administered medications on file prior to encounter. Current Outpatient Medications on File Prior to Encounter Medication Sig Dispense Refill ??? chlorthalidone 25 MG tablet Take 1 tablet (25 mg total) by mouth daily. 30 tablet 0 ??? gabapentin 300 MG capsule Take 1 capsule (300 mg total) by mouth 3 (three) times daily. 90 capsule 0 ??? insulin glargine (LANTUS SOLOSTAR) 100 UNIT/ML injection (PEN) Inject 20 Units into the skin nightly at bedtime. 6 mL 0 ??? levothyroxine 50 MCG tablet Take 1 tablet (50 mcg total) by mouth daily. 30 tablet 0 Past Medical History Past Medical History: Diagnosis Date ??? Cancer (CMS/HCC) breast ??? Diabetes mellitus (CMS/HCC) ??? Disease of thyroid gland ??? Hypertension ??? Schizophrenia (CMS/HCC) Past Surgical History: Procedure [...] file Gets together: Not on file Attends muslim service: Not on file Active member of [...] taken and pertinent positive as per HPI Review of Systems Unable to perform ROS: Mental status change PHYSICAL EXAMINATION: Vital 24 Hour Range Most Recent Value Temperature Temp Min: 92.5 ??F (33.6 ??C) Max: 97.6 ??F (36.4 ??C) 97.6 ??F (36.4 ??C) Pulse Pulse Min: 66 Max: 83 76 Respiratory Resp Min: 11 Max: 20 20 Blood Pressure BP Min: 136/65 Max: 156/67 (!) 156/67 Pulse Oximetry SpO2 Min: 96 % Max: 100 % 98 % O2 No data recorded Vital Most Recent Value First Value Weight 77.4 kg (170 lb 10.2 oz) Weight: 77.4 kg (170 lb 10.2 oz) Height 5' 2 (157.5 cm) Height: 5' 2 (157.5 cm) BMI 31.3 N/A Physical Exam: Physical Exam Constitutional: Ill-appearing female in NAD. HENT: Head: Normocephalic. Left supraorbital scalp swelling and laceration above left eyebrow. Cardiovascular: Normal rate, regular rhythm and normal heart sounds. Pulmonary/Chest: Effort normal. No respiratory distress. She has no wheezes. She has no rales. Visible and palpable mass on the upper right chest wall/ upper right breast. Non-tender to palpation. Abdominal: Soft. Bowel sounds are normal. There is no tenderness. There is no rebound. Large, ventral abdominal hernia, non-tender to palpation. Musculoskeletal: She exhibits edema. Trace to 1+ edema of both ankles. Neurological: She is alert. Initially drowsy, though patient awoke with position change and cleaning. Skin: Skin is warm and dry. Patient has multiple skin ulcerations, including Stage 3 ulcer to the left lower buttock with no noted drainage; ulcer to posterior left ankle to to the right heel. Intake/Output last 3 shifts: No intake/output data recorded. Labs: Recent Labs Lab 06/28/19 1426 NA 133* K 4.1 CL 92* CO2 33.3* AGAP 7.7 BUN 26* CR 1.31* BUNCREATININ 19.8 GFRNON 43* GFR 50* GLU 570* CA 9.5 Recent Labs Lab 06/28/19 1426 WBC 6.8 RBC 3.47* HGB 10.2* HCT 30.8* MCV 88.8 MCH 29.4 MCHC 33.1 PLT 267 RDW 14.7* MPV 11.0 Recent Labs Lab 06/28/19 1426 AST 28 ALT 39 No results for input(s): INR, PTT in the last 168 hours. Invalid input(s): ABG arterial blood gases Recent Labs Lab 06/28/19 1426 06/28/[id number] 0235 TROP 0.130* 0.124* 0.125* 0.135* CPK 152 -- -- -- No results for input(s): PH, PCO2, PO2, [id number], BICARBWB, BASEDEFICIT, BASEEXCESS in the rige955 hours. Imaging & Other Studies Examination: Chest x-ray 1 view Exam date/time: [...] old healed granulomatous disease. Tiny right granuloma. ?? =====IMPRESSION:===== 1. No acute infiltrate demonstrated. 2. Mild cardiomegaly. 3. Old healed granulomatous disease. 4. Suboptimal exam. Results for orders placed or performed during the hospital encounter of 06/28/19 [address] [facility] [address] Test Date: 2019-06-28 Pat Name: IRIS GIL Department: Room: [place] [address] Gender: Female Tennis Director: DIONICIO : 1955 Requested By: AMANDA MOORE Order Number: [id number] Reading MD: Jonatan Aldrich Measurements Intervals [place] Rate: 70 P: 54 MO: 168 QRS: -43 QRSD: 117 T: 127 QT: 435 QTc: 470 Interpretive Statements SINUS RHYTHM MARKED LEFT AXIS DEVIATION POSSIBLE ANTERIOR MYOCARDIAL INFARCTION, OF INDETERMINATE AGE MODERATE T-WAVE ABNORMALITY, CONSIDER LATERAL ISCHEMIA Compared to ECG 06/05/2019 14:03:27 T-wave abnormality now present Possible ischemia now present Left anterior fascicular block no longer present ST (T wave) deviation no longer present Myocardial infarct finding still present Assessment & Plan Sepsis Due to Unknown Organism: Patient was found to be hypothermic in the ED with temperature of 93.9F and hypotension (pressure 89/56 mmHg which improved with IVF). Vancomycin and Cefepime were initiated for broad coverage, especially for skin given multiple ulcers found on exam. Continue IVF. Blood cultures x 2 drawn- follow evolution and adjust management accordingly. Monitor VS closely. Elevated Troponin Level: Initial Troponin level found to be 0.130. Admit to Telemetry for further cardiac monitoring and management. Trend Troponin levels. EKG revealed T-wave inversions. Cardiology consulted in the ED with recommendations to continue trending cardiac enzymes, echocardiogram and ASA. Await further recommendations. Acute Encephalopathy: Due to multiple causes, including infection, hyperglycemia, ABDIRASHID, NSTEMI. CT of the Head performed in the ED revealed no acute intracranial process; stable cortical atrophy and small vessel disease with left supraorbital scalp swelling. Treat as noted above and monitor mental status. MRI, echocardiogram and carotid Doppler study ordered. Type 2 Diabetes Mellitus with Hyperglycemia: Patient presented with glucose > 500, not in DKA. Per ER documentation, patient's insulin supply ran out. Patient given IV insulin in the ED. Plan to restart Lantus at HS and add SSI per protocol. Monitor Accu-checks both AC and HS. HgbA1c ordered for the AM. Hydrate with IVF. ABDIRASHID: Patient presented with BUN of 21 and SCr of 1.31, up from 0.92 last month. Hydration with IVF ordered. Monitor with BMP in the AM. DVT ppx: Lovenox ordered. I have seen and examined the patient independently and anticipate patient will require 3-4 midnights. SAVANNA ARDON MD documented in this encounter Consult Notes * Martha Thompson, RD - 07/08/2019 1:30 PM CDT A: CHART REVIEWED FOR LENGTH OF STAY. MEDICAL RECORDS REFLECT 13% WEIGHT LOSS IN LAST MONTH BRINGING BMI TO 31.7. PT WITH HX OF UNCONTROLLED DIABETES WITH A1C OF 11.4 ON 05/08/19 AND BLOOD SUGARS >500 AT ADMIT. PT WITH MULTIPLE PRESSURE ULCERS - STAGE 2 AND 3. INTAKE HAS BEEN GOOD: 100% FOR LAST4 MEALS PROVIDED . EST. CALORIE NEEDS: [id number] TAVO(MSJX1.2-1.3) EST. PROTEIN NEEDS: 74-80 GM PROTEIN ( 1.3-1.4 GM PRO/ADJBWKG) EST. CHO NEEDS: 206 GM CHO/DAY = 60 GM CHO/MEAL. REVIEWED LABS AND MEDICATIONS. D: PES=UNINTENTIONAL WEIGHT LOSS RT INADEQUATE ORAL INTAKE AEB 13% WEIGHT LOSS IN LAST MONTH. I: GOALS: RECOMMEND CONTINUING WITH 75 GM CHO/MEAL, CARDIAC DIET. ALSO RECOMMEND TRAVIS SUPPLEMENT BID TO SUPPORT WOUND HEALING. M/E: PT AT MODERATE NUTRITION RISK. F/U 07/15/19. GOALS: RECOMMEND INTAKE > 70%, TAKING TRAVIS DAILY. * Khalif Guy MD - 07/02/2019 10:03 AM CDT Images from the original note were not included. Consult History Iris Gil is a 64-year-old female who presents with nonhealing wound This is a 64-year-old female who presents with ulceration of the left lower extremity. The patient states the area of ulceration has been present for over 2 months. She denies fevers and chills. She reports the site is tender to palpation. MRI of the lower extremity was negative for osteomyelitis. The patient denies symptoms of intermittent claudication but has a history of peripheral vascular disease. Past Medical History: Diagnosis Date ??? Cancer (CMS/HCC) breast ??? Diabetes mellitus (CMS/HCC) ??? Disease of thyroid gland ??? Hypertension ??? PVD (peripheral vascular disease) (CMS/HCC) ??? Schizophrenia (CMS/HCC) Past Surgical History: Procedure Laterality Date ??? BREAST SURGERY Bilateral ??? KNEE SURGERY Right ??? REMOVAL OF OVARY(S) Left ??? UPPER ARM/ELBOW SURGERY UNLISTED Right Social History Tobacco Use ??? Smoking status: Never Smoker ??? Smokeless tobacco: Never Used Substance Use Topics ??? Alcohol use: No Frequency: Never ??? Drug use: No Family History Family history unknown: Yes ??? aspirin 325 mg Oral Daily ??? atorvastatin 40 mg Oral Daily ??? collagenase Topical Daily ??? enoxaparin 40 mg Subcutaneous Nightly at bedtime ??? insulin lispro 0-16 Units Subcutaneous TID AC And ??? insulin lispro 0-8 Units Subcutaneous Nightly at bedtime ??? levothyroxine 50 mcg Oral Daily ??? vancomycin 1,500 mg Intravenous Q24H acetaminophen, dextrose, dextrose 10 % bolus, glucagon, nitroglycerin, ondansetron, polyethylene glycol Prior to Admission medications Medication Sig Start Date End Date Taking? Authorizing Provider chlorthalidone 25 MG tablet Take 1 tablet (25 mg total) by mouth daily. 05/17/19 Fabiola Carter MD gabapentin 300 MG capsule Take 1 capsule (300 mg total) by mouth 3 (three) times daily. 05/16/19 Fabiola Carter MD insulin glargine (LANTUS SOLOSTAR) 100 UNIT/ML injection (PEN) Inject 20 Units into the skin nightly at bedtime. 06/07/19 Loraine Penaloza MD levothyroxine 50 MCG tablet Take 1 tablet (50 mcg total) by mouth daily. 06/08/19 Loraine Penaloza MD Allergies Allergen Reactions ??? Codeine Nausea and Vomiting Review of Systems Constitutional: Negative. HENT: Negative. Eyes: Negative. Respiratory: Positive for shortness of breath. Cardiovascular: Negative. Gastrointestinal: Negative. Endocrine: Negative. Genitourinary: Negative. Musculoskeletal: Positive for myalgias. Skin: Positive for wound. Allergic/Immunologic: Negative. Neurological: Negative. Hematological: Negative. Psychiatric/Behavioral: Negative. Physical Exam Filed Vitals: 07/01/19 1954 07/01/19 2310 07/02/19 0600 07/02/19 0818 BP: 98/78 101/80 98/80 142/53 Pulse: 53 58 57 73 Resp: 18 Temp: 97.7 ??F (36.5 ??C) 97.7 ??F (36.5 ??C) 97.7 ??F (36.5 ??C) 97.8 ??F (36.6 ??C) TempSrc: Oral Oral Oral Oral SpO2: 98% 97% 98% 93% Weight: 78 kg (172 lb) Height: Physical Exam: Physical Exam Constitutional: No distress. HENT: Head: Normocephalic and atraumatic. Eyes: Conjunctivae are normal. No scleral icterus. Neck: Neck supple. Cardiovascular: Normal rate. Pulses: Dorsalis pedis pulses are 0 on the left side. Posterior tibial pulses are 0 on the left side. Pulmonary/Chest: Effort normal. Abdominal: Soft. She exhibits no distension. There is no tenderness. Skin: She is not diaphoretic. Recent Labs Lab 06/29/19 1352 06/30/19 0645 07/01/19 0951 WBC 7.8 8.3 7.8 RBC 3.04* 2.81* 2.95* HGB 9.0* 8.3* 8.7* HCT 27.5* 25.5* 26.9* MCV 90.5 90.7 91.2 MCH 29.6 29.5 29.5 MCHC 32.7 32.5 32.3 PLT 220 213 191 RDW 15.1* 15.1* 15.4* MPV 9.8 10.5 10.2 PERNEU 79.7 76.2 77.8 PERLYM 12.2 15.4 13.6 PERMON 4.9 5.3 5.5 LYMC 0.95* 1.28 1.06 MONOC 0.38 0.44 0.43 EOSC 0.12 0.14 0.12 BASOC 0.04 0.05 0.03 DTYPE AUTOMATED DIFFERENTIAL AUTOMATED DIFFERENTIAL AUTOMATED DIFFERENTIAL Recent Labs Lab 06/28/19 1426 06/29/19 1352 06/30/19 0645 07/01/19 0951 NA 133* 136 137 136 K 4.1 3.5 3.5 3.7 CL 92* 98* 101 99* CO2 33.3* 31.9 29.0 31.5 AGAP 7.7 6.1 7.0 5.5 BUN 26* 30* 27* 20* CR 1.31* 1.08* 0.92 0.95 BUNCREATININ 19.8 27.8* 29.3* 21.1 GFRNON 43* 54* 66* 63* GFR 50* 63* 76* 73* GLU 570* 229* 46* 93 CA 9.5 8.9 8.5 8.9 TP 8.1 -- -- -- ALB 2.9* -- -- -- TBIL 0.5 -- -- -- ALKP 75 -- -- -- AST 28 -- -- -- ALT 39 -- -- -- No results for input(s): PTT, INR in the last 168 hours. Invalid input(s): PT Results for orders placed or performed during the hospital encounter of 06/28/19 (from the past 8736 hour(s)) CULTURE URINE Collection Time: 06/28/19 6:09 PM Result Value Ref Range Spec. Description URINE [facility]AN CATH Special Requests: NO SPECIAL REQUEST Culture Result: NO GROWTH 2 DAYS Imaging: Ct Cerv Spine Wo Con Result Date: [...] By: Xavier Costa MD, 06/28/2019 3:35 PM Xr Chest Portable Result Date: 06/28/2019 Examination: [...] Old healed granulomatous disease. 4. Suboptimal exam. Assessment Active Problems: Encephalopathy acute SNOMED CT(R): DISORDER OF BRAIN Elevated troponin SNOMED CT(R): PROTEIN LEVEL - FINDING Essential hypertension SNOMED CT(R): ESSENTIAL HYPERTENSION Mixed hyperlipidemia SNOMED CT(R): MIXED HYPERLIPIDEMIA Plan The patient has had no improvement of the left lower extremity wound over the past 2 months. She has known history of peripheral vascular disease with moderate arterial insufficiency of the left lower extremity. Plan for left lower extremity arteriogram and possible intervention. Thank you for consultation. KHALIF GUY MD Consulted by Sharon Ortez NP * Bud Weir MD - 07/01/2019 1:43 PM CDTAssociated Order(s): IP CONSULT TO INFECTIOUS DISEASES Infectious Diseases Consult Note Patient: Iris Gil Date: 07/01/2019 female, 64-year-old Admit Date: 06/28/2019 Attending: Loraine Penaloza, * REASON FOR CONSULT: bacteremia HISTORY OF PRESENT ILLNESS: Iris Gil is a 64-year-old female With medical history as below. Admitted post fall, confused, with High blood glucose of 570 in addition to hypothermia and elevated Troponin level. Past Medical History: Past Medical History: Diagnosis Date ??? Cancer (CMS/HCC) breast ??? Diabetes mellitus (CMS/HCC) ??? Disease of thyroid gland ??? Hypertension ??? PVD (peripheral vascular disease) (CMS/HCC) ??? Schizophrenia (CMS/HCC) Past Surgical History: Past Surgical History: Procedure Laterality Date ??? BREAST SURGERY Bilateral ??? KNEE SURGERY Right ??? REMOVAL OF OVARY(S) Left ??? UPPER ARM/ELBOW SURGERY UNLISTED Right Prior to Admission Medications: Medications Prior to Admission Medication Sig Dispense Refill ??? chlorthalidone 25 MG tablet Take 1 tablet (25 mg total) by mouth daily. 30 tablet 0 ??? gabapentin 300 MG capsule Take 1 capsule (300 mg total) by mouth 3 (three) times daily. 90 capsule 0 ??? insulin glargine (LANTUS SOLOSTAR) 100 UNIT/ML injection (PEN) Inject 20 Units into the skin nightly at bedtime. 6 mL 0 ??? levothyroxine 50 MCG tablet Take 1 tablet (50 mcg total) by mouth daily. 30 tablet 0 Allergies: Allergies Allergen Reactions ??? Codeine Nausea and Vomiting Social History: Social History Socioeconomic History ??? Marital status: [...] file Gets together: Not on file Attends muslim service: Not on file Active member of [...] History Narrative ??? Not on file Family History: Family History Family history unknown: Yes REVIEW OF SYSTEMS: Says feels tired, Denies SOB, abdominal pain, No nausea, No chest pain.All other systems were assessed and were negative for any symptoms. PHYSICAL EXAMINATION: Filed Vitals: 06/30/19 2330 07/01/19 0450 07/01/19 0804 07/01/19 1118 BP: 118/52 129/64 129/59 110/52 Pulse: 79 76 Resp: Temp: 97.8 ??F (36.6 ??C) 98.4 ??F (36.9 ??C) 97.9 ??F (36.6 ??C) 97.4 ??F (36.3 ??C) TempSrc: Oral Oral Oral Oral SpO2: 98% 98% 98% 100% Weight: 77.9 kg (171 lb 11.8 oz) Height: General physical exam not in any apparent distress. 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 LABS: Recent Labs Lab 06/29/19 1352 06/30/19 0645 07/01/19 0951 WBC 7.8 8.3 7.8 RBC 3.04* 2.81* 2.95* HGB 9.0* 8.3* 8.7* HCT 27.5* 25.5* 26.9* MCV 90.5 90.7 91.2 MCH 29.6 29.5 29.5 MCHC 32.7 32.5 32.3 PLT 220 213 191 RDW 15.1* 15.1* 15.4* MPV 9.8 10.5 10.2 PERNEU 79.7 76.2 77.8 PERLYM 12.2 15.4 13.6 PERMON 4.9 5.3 5.5 LYMC 0.95* 1.28 1.06 MONOC 0.38 0.44 0.43 EOSC 0.12 0.14 0.12 BASOC 0.04 0.05 0.03 DTYPE AUTOMATED DIFFERENTIAL AUTOMATED DIFFERENTIAL AUTOMATED DIFFERENTIAL Recent Labs Lab 06/28/19 1426 06/29/19 1352 06/30/19 0645 07/01/19 0951 NA 133* 136 137 136 K 4.1 3.5 3.5 3.7 CL 92* 98* 101 99* CO2 33.3* 31.9 29.0 31.5 AGAP 7.7 6.1 7.0 5.5 BUN 26* 30* 27* 20* CR 1.31* 1.08* 0.92 0.95 BUNCREATININ 19.8 27.8* 29.3* 21.1 GFRNON 43* 54* 66* 63* GFR 50* 63* 76* 73* GLU 570* 229* 46* 93 CA 9.5 8.9 8.5 8.9 TP 8.1 -- -- -- ALB 2.9* -- -- -- TBIL 0.5 -- -- -- ALKP 75 -- -- -- AST 28 -- -- -- ALT 39 -- -- -- Invalid input(s): LACTATE, PROCALCITONIN MICROBIOLOGY: Blood: Results for orders placed or performed during the hospital encounter of 06/28/19 (from the past 168hour(s)) CULTURE, BACTERIA, BLOOD Collection Time: 06/28/19 6:24 PM Result Value Ref Range Spec. Description BLOOD Special Requests: NO SPECIAL REQUEST Gram Stain Result GRAM POSITIVE COCCI RESEMBLING STAPHYLOCOCCUS SPECIES Gram Stain Result GRAM STAIN CALLED TO AND REPEATED BACK BY MANJINDER SRINIVASAN RN, AT 1215, 06/30/19. DJW Culture Result: GROWTH OF STAPH. SPECIES NOT STAPH. AUREUS (AA) CULTURE, BACTERIA, BLOOD Collection Time: 06/28/19 6:24 PM Result Value Ref Range Spec. Description BLOOD Special Requests: NO SPECIAL REQUEST Gram Stain Result GRAM POSITIVE COCCI RESEMBLING STREPTOCOCCUS SPECIES Gram Stain Result GRAM STAIN CALLED TO AND REPEATED BACK BY ROLF DURBIN RN, AT 1335, 06/29/19. DJW Culture Result: (AA) METHICILLIN RESISTANT STAPHYLOCOCCUS AUREUS DETECTED BY VERIGENE NUCLEIC ACID TEST FOLLOW ISOLATION PROTOCOL. Culture Result: (AA) ENTEROCOCCUS FAECALIS DETECTED BY VERIGENE NUCLEIC ACID TEST NO RESISTANCE MARKERS DETECTED BY VERIGENE NUCLEIC ACID TEST. Culture Result: CALLED RN FOR MRSA PROTOCCOL ROLF LEE. PHARMACY CALLED AT [phone] FOR VERIGENE RESULTS TALKED TO AJ HAYWARD. Culture Result: (AA) GROWTH OF METHICILLIN RESISTANT STAPHYLOCOCCUS AUREUS FOLLOW ISOLATION PROTOCOL. CALLED TO AND REPEATED BACK BY ANNE DE OLIVEIRA AT 0732 CLW 07/01/2019 Culture Result: (AA) GROWTH OF ENTEROCOCCUS FAECALIS IF PATIENT IS PENICILLIN ALLERGIC, CONTACT THE MICROBIOLOGY DEPARTMENT FOR READILY AVAILABLE VANCOMYCIN SUSCEPTIBILITY. Susceptibility Enterococcus faecalis - MICHAEL (VITEK) AMPICILLIN <=2 Sensitive GENT. SYNERGY SCREEN Resistant PENICILLIN G 2 Sensitive LINEZOLID 1 Sensitive Methicillin resistant staphylococcus aureus - MICHAEL (VITEK) CLINDAMYCIN >=8 Resistant ERYTHROMYCIN >=8 Resistant OXACILLIN >=4 Resistant TRIMETH-SULFAMETH. <=10 Sensitive TETRACYCLINE <=1 Sensitive VANCOMYCIN 1 Sensitive Urine: Results for orders placed or performed during the hospital encounter of 06/28/19 (from the past 168hour(s)) CULTURE URINE Collection Time: 06/28/19 6:09 PM Result Value Ref Range Spec. Description URINE [facility] CATH Special Requests: NO SPECIAL REQUEST Culture Result: NO GROWTH 2 DAYS IMAGIN D Echo reviewed from 05/01 Ct head reviewed. ASSESSMENT & PLAN: Polymicrobial bacteremia: Blood cultures with MRSA, E faecalis (susceptible to Ampicillin)Urine with NG in culture although UA with WBCs. Source? Possible leg wounds. superficial head laceration from fall. No chest infiltrate. will repeat blood cultures. MRI Left Tibia and Fibula 01/08 NO Osteomyelitis. -will repeat blood cultures. - 2D echo reviewed, - Will discontinue Cefepime., afebrile, WBC count WNL. - May consult Vascular surgery DM type 2 ABDIRASHID, creatinine improved 0.95 Hypothyroidism Multiple pressure ulcers BUD WEIR MD 07/01/2019 * Sharon Nixon RN - 07/01/2019 1:34 PM CDTAssociated Order(s): INPATIENT CONSULT TO WOUND CARE Wound nurse consulted for various pressure sites noted to bilateral legs. Upon assessment, a large unstageable pressure injury is noted to the patients right heel. A large amount of eschar and sloughare present. The wound edges are not attached and a large amount of purulent, foul drainage is present. Would recommend possible wound culture, possible imaging of site to determine involement and possible consult for debridement of non-viable tissue. To the left posterior lower leg, a small open site is noted. This wound bed is primarily red/pink with small slough. Recommend santyl and foam. To the left posterior upper leg, a 7.4 x 7 x 0.2cm pressure ulceration is noted. There is a large amount for fibrinous slough within wound. Recommend santyl and foam to site. To the right posterior upperleg, a 1.1 x 2.1 x 0.1cm site is noted. Large eschar/slough is present. Recommend santyl and foam. 07/01/2019 Sharon Nixon RN * Sunita Nails MD - 06/29/2019 1:48 PM CDTAssociated Order(s): IP CONSULT TO CARDIOLOGY Cardiology Consult Indication for Consult Advice and opinion regarding elevated troponin History Iris Gil is a 64-year-old female who has B breast cancer, dementia, diabetes mellitus type 2 uncontrolled, peripheral vascular disease, hyperlipemia, schizophrenia and hypertension . She was admitted on 06/28/2019 1:27 PM for fall and laceration to her left presybeterian. She was found to have pin point pupils and received a dose of Narcan without significant response. She was hypothermic At 92.5F and required the bare hugger. She had hyperglycemia but no evidence of DKA so she was started on IV fluids. Her troponin was noted to be elevated at 0.135. Cardiology was consulted to see her. Mrs. Gil is not able to say what happened to her. She is fixated on looking for a scale that isnot there. She says that she was unable to get up on the scale herself and she fell down and hit her head. She is not sure why she was trying to weigh herself. She currently denies any chest pain, fever sweats or chills. She did have some fevers before but is not able to say when or how high her temperature was. She does report shortness of breath as well as some nausea but no vomiting. She thinks that she is in [place] but she is not sure actually where. Past Medical History: Diagnosis Date ??? Cancer (CMS/HCC) breast ??? Diabetes mellitus (CMS/HCC) ??? Disease of thyroid gland ??? Hypertension ??? PVD (peripheral vascular disease) (CMS/HCC) ??? Schizophrenia (CMS/HCC) Past Surgical History: Procedure Laterality Date ??? BREAST SURGERY Bilateral ??? KNEE SURGERY Right ??? REMOVAL OF OVARY(S) Left ??? UPPER ARM/ELBOW SURGERY UNLISTED Right Social History Tobacco Use ??? Smoking status: Never Smoker ??? Smokeless tobacco: Never Used Substance Use Topics ??? Alcohol use: No Frequency: Never ??? Drug use: No Family History Family history unknown: Yes ??? aspirin 325 mg Oral Daily ??? atorvastatin 40 mg Oral Daily ??? cefepime 2 g Intravenous Q12H ??? enoxaparin 40 mg Subcutaneous Nightly at bedtime ??? insulin glargine 20 Units Subcutaneous Nightly at bedtime ??? insulin lispro 0-16 Units Subcutaneous TID AC And ??? insulin lispro 0-8 Units Subcutaneous Nightly at bedtime ??? levothyroxine 50 mcg Oral Daily ??? vancomycin 1,500 mg Intravenous Q24H ??? sodium chloride 75 mL/hr at 06/29/19 0429 acetaminophen, nitroglycerin, ondansetron, polyethylene glycol Prior to Admission medications Medication Sig Start Date End Date Taking? Authorizing Provider chlorthalidone 25 MG tablet Take 1 tablet (25 mg total) by mouth daily. 05/17/19 Fabiola Carter MD gabapentin 300 MG capsule Take 1 capsule (300 mg total) by mouth 3 (three) times daily. 05/16/19 Fabiola Carter MD insulin glargine (LANTUS SOLOSTAR) 100 UNIT/ML injection (PEN) Inject 20 Units into the skin nightly at bedtime. 06/07/19 Loraine Penaloza MD levothyroxine 50 MCG tablet Take 1 tablet (50 mcg total) by mouth daily. 06/08/19 Loraine Penaloza MD Allergies Allergen Reactions ??? Codeine Nausea and Vomiting Review of Systems Unable to perform ROS: Acuity of condition (limited by confusion) Constitutional: Negative for chills and fever. Respiratory: Positive for shortness of breath. Cardiovascular: Negative for chest pain. Musculoskeletal: Positive for falls. Endo/Heme/Allergies: Bruises/bleeds easily. Physical Exam Filed Vitals: 06/29/19 0045 06/29/19 0410 06/29/19 0823 06/29/19 1139 BP: 142/74 (!) 156/67 136/77 116/53 Pulse: 72 76 56 108 Resp: Temp: 97.5 ??F (36.4 ??C) 97.6 ??F (36.4 ??C) TempSrc: Oral Oral SpO2: 96% 98% 100% 100% Weight: Height: Physical Exam: Physical Exam Constitutional: She is oriented to person, place, and time. She appears well- developed and well-nourished. No distress. HENT: Nose: No mucosal edema. Mouth/Throat: Oropharynx is clear and moist and mucous membranes are normal. No oropharyngeal exudate. Bandage on her left forehead Neck: Neck supple. No JVD present. Carotid bruit is not present. Cardiovascular: Normal rate, regular rhythm, S1 normal, S2 normal and intact distal pulses. No extrasystoles are present. Exam reveals no gallop. No murmur heard. Pulmonary/Chest: Effort normal. No respiratory distress. She has no wheezes. Right breast has a lump with a scar-? Seroma. Abdominal: Soft. Bowel sounds are normal. She exhibits distension. She exhibits no mass. There is no hepatosplenomegaly. There is tenderness. Large hard area on her abdomen Genitourinary: Genitourinary Comments: Kaplan catheter with red urine Musculoskeletal: She exhibits edema (Fine wrinkled skin on legs). She exhibits no deformity. Neurological: She is alert and oriented to person, place, and time. Skin: Skin is warm and dry. No erythema. Psychiatric: She has a normal mood and affect. Her behavior is normal. Thought content normal. Recent Labs Lab 06/28/19 1426 06/29/19 1352 WBC 6.8 7.8 RBC 3.47* 3.04* HGB 10.2* 9.0* HCT 30.8* 27.5* MCV 88.8 90.5 MCH 29.4 29.6 MCHC 33.1 32.7 PLT 267 220 Recent Labs Lab 06/28/19 1426 06/29/19 1352 NA 133* 136 K 4.1 3.5 CL 92* 98* CO2 33.3* 31.9 BUN 26* 30* CR 1.31* 1.08* GLU 570* 229* BUNCREATININ 19.8 27.8* GFRNON 43* 54* GFR 50* 63* estimated creatinine clearance is 50.7 mL/min (A) (based on SCr of 1.08 mg/dL (H)). Recent Labs Lab 06/28/19 1426 06/29/19 1352 CA 9.5 8.9 Recent Labs Lab 06/28/19 1426 TP 8.1 ALB 2.9* TBIL 0.5 ALKP 75 AST 28 ALT 39 No results for input(s): APTT, INR, PTT in the last 168 hours. Lab Results Component Value Date CHOL 201 (H) 06/29/2019 TRI 123 06/29/2019 HDL 84 06/29/2019 LDL 92 06/29/2019 HGBA1C 11.4 (H) 05/08/2019 TSH 20.700 (H) 06/29/2019 Recent Labs Lab 06/28/19 1426 06/28/19 1942 06/28/19 2134 06/29/19 0235 TROP 0.130* 0.124* 0.125* 0.135* No results found for this visit on 06/28/19 (from the past 168 hour(s)). Results for orders placed or performed during the hospital encounter of 06/28/19 (from the past 168hour(s)) CULTURE, BACTERIA, BLOOD Collection Time: 06/28/19 6:24 PM Result Value Ref Range Spec. Description BLOOD Special Requests: NO SPECIAL REQUEST Culture Result: NO GROWTH 1 DAY CULTURE, BACTERIA, BLOOD Collection Time: 06/28/19 6:24 PM Result Value Ref Range Spec. Description BLOOD Special Requests: NO SPECIAL REQUEST Gram Stain Result GRAM POSITIVE COCCI RESEMBLING STREPTOCOCCUS SPECIES Gram Stain Result GRAM STAIN CALLED TO AND REPEATED BACK BY ROLF DURBIN RN, AT 1335, 06/29/19. DJW Culture Result: CULTURE REPORT TO FOLLOW. EKG: Results for orders placed or performed during the hospital encounter of 06/28/19 ECG 12 lead Narrative [address] Test Date: 2019-06-28 Pat Name: IRIS GIL Department: Room: [place] [address] Gender: Female Tennis Director: DIONICIO : 1955 Requested By: AMANDA MOORE Order Number: [id number] Reading MD: Jonatan Aldrich Measurements Intervals [place] Rate: 70 P: 54 MO: 168 QRS: -43 QRSD: 117 T: 127 QT: 435 QTc: 470 Interpretive Statements SINUS RHYTHM MARKED LEFT AXIS DEVIATION POSSIBLE ANTERIOR MYOCARDIAL INFARCTION, OF INDETERMINATE AGE MODERATE T-WAVE ABNORMALITY, CONSIDER LATERAL ISCHEMIA Compared to ECG 06/05/2019 14:03:27 T-wave abnormality now present Possible ischemia now present Left anterior fascicular block no longer present ST (T wave) deviation no longer present Myocardial infarct finding still present ECG was reviewed personally. Old anterior ID. NSC from ECG on . Imaging: CT CERV SPINE WO CON Narrative: Examination: CT of the cervical spine. Exam time: 1521 hours. Clinical history: Trauma. Patient fell. Comparison: None. Technique: Thin section spiral axial scans were acquired from the skull base through the T1-2 levelwithout contrast. Sagittal and coronal reconstructions were performed from the data set. A dose lowering technique was used for this procedure, which may include, but is not limited to, dose reduction techniques, automated exposure control, the use of iterative reconstruction and ALARA/Image Gentlytechniques. Findings: There is no fracture or dislocation. The reconstructions confirm maintenance of vertebralbody height. Mild reversal of the normal lordosis and minimal anterolisthesis at C4-5 are attributed to the presence of the collar. Alignment is otherwise satisfactory. There is disc narrowing and paravertebral osteophyte formation at C5-6, C6-7 and C7-T1. The other intervertebral discs are maintained normally in height. There is mild generalized facet arthropathy. The neural foramina and centralcanal appear patent. The spinal canal contents, as visualized, appear unremarkable. There is no paraspinal edema or hematoma. There is atherosclerotic calcification in the carotid distributions bilaterally. Impression: IMPRESSION: 1. No acute traumatic injury identified. 2. Spondylosis as described. 3. Bilateral carotid atherosclerosis. Interpreted By: Xavier Costa MD, 06/28/2019 3:[address] HEAD WO CON Narrative: Examination: CT of the head without contrast. [...] calcification in the basal ganglia is again evident. There is stable periventricular decreased attenuation, compatible with small vessel disease. Intracranially, nonew areas of abnormal x-ray attenuation are identified. In particular, there is no mass, hemorrhageor sign of acute stroke. No extracerebral fluid collections. The skull appears intact. The mastoid air cells and visualized paranasal sinuses appear clear. There is left supraorbital scalp swelling. Impression: IMPRESSION: 1. No acute intracranial process identified. 2. Stable cortical atrophy and small vessel disease. 3. Left supraorbital scalp swelling. Interpreted By: Xavier Costa MD, 06/28/2019 3:35 PM XR CHEST PORTABLE Narrative: Examination: Chest x-ray 1 view Exam date/time: [...] old healed granulomatous disease. Tiny right granuloma. Impression: =====IMPRESSION:===== 1. No acute infiltrate demonstrated. 2. Mild cardiomegaly. 3. Old healed granulomatous disease. 4. Suboptimal exam. Assessment Encephalopathy acute Elevated troponin Essential hypertension Mixed hyperlipidemia Plan Sepsis/ Encephalopathy Per others Elevated troponin with an abnormal ECG. PEACE score of 2. No real rise or fall and troponin. Doubt ACS. Echocardiogram is pending. Continues on aspirin. Suspect there is underlying coronary artery disease given her history of diabetes mellitus type 2, hypertension, hyperlipidemia and PVD. Could consider a stress test at some point for risk stratification. Diabetes mellitus type 2 uncontrolled. hypertension- pressures have been variable. Monitor for now Hyperlipidemia. Start statin. SUNITA NAILS MD documented in this encounter Nursing Notes * Cyndy Gordon RN - 07/09/2019 3:35 PM CDT Cyndy Gordon, MSN, RN, VT-BC, CNE inserted right 4 New Zealander single lumen Midline catheter lot # [id number] per order, assisted by none.Consent obtained, timeout, report received from nurse, and patient history, allergies, code status, medications, and laboratory results reviewed prior to procedure. Initial arm circumference 26 cm at site. Aseptic technique used: hand hygiene performed, goggles, mask,sterile gown, cap, sterile gloves, large sterile drape. Site prepped and dried prior to first skin puncture utilizing chlorhexidine. 1 mL Lidocaine 1% administered interdermal/subcutaneous to insertion site prior to insertion. Ultrasound and modified seldinger technique utilized with 1 attempts to the patent right brachial vein using a 21 gauge needle. Detail of Complication: none. Catheter length: 15 cm. Initial exposed catheter: 0 cm lorena. Secured with Statlock, biopatch applied, and transparent occlusive dressing applied. Patient response: tolerated well. Blood return obtained and flushed w ithout resistance with 10 mL 0.9% Sodium Chloride per each lumen. No signs of redness, swelling, bruising, or bleeding at site. Midline education and brochure provided. Nurse informed of procedure. * Merle Srinivasan RN - 07/09/2019 3:15 PM CDT Report called to [facility] at 1516. documented in this encounter OR Notes * Brief Op Note - Khalif Guy MD - 07/05/2019 3:11 PM CDT General Procedure Op Note Procedure Note Iris Gil 07/05/2019 Procedure: left lower extremity angiogram, angioplasty left SFA, MAKAYLA and PRODUCT DEVELOPMENT ASSISTANT. Pre-Op Diagnosis: PVD. Post-Op Diagnosis: same Specimen(s) Removed: None Anesthesia: Local Surgeon: Alton Estimated Blood Loss: Minimal KHALIF GUY MD Date: 07/05/2019 Time: 3:11 PM * Op Note - Khalif Guy MD - 07/05/2019 12:00 AM CDT PROCEDURE PERFORMED: 1. Left lower extremity arteriogram. 2. Balloon angioplasty of left superficial femoral, left anterior tibial and posterior tibial arteries. SURGEON: Khalif Guy MD. ANESTHESIA: 1% Lidocaine. ESTIMATED BLOOD LOSS: Less than 20 mL. COMPLICATIONS: None. FINDINGS: 1. Patent left common femoral, deep femoral, popliteal arteries with no significant stenosis. 2. Severe stenosis, distal left superficial femoral artery. 3. Mid occlusion left anterior tibial artery with distal reconstitution. 4. Proximal occlusion left peroneal artery. 5. Multisegmental stenosis proximal and mid left posterior tibial artery. INDICATIONS FOR PROCEDURE: This is a 64-year-old female with a chronic nonhealing wound of the leftlower extremity. She presents at this time for left lower extremity arteriogram and possible intervention. The patient had noninvasive vascular testing which was within the moderate arterial insuffici ency range with an ZAYNAB of 0.6. Patient presents for angiogram and possible intervention. The risks and benefits of the above-named procedure were discussed with the patient to her satisfaction. Risksand benefits discussed included but were not limited to bleeding, infection, loss of limb, permanent disability, contrast allergy, contrast reaction, renal failure, need for hemodialysis, pseudoaneurysm, hematoma, rupture of artery, thrombosis of artery. The patient expressed understanding and wished to proceed. DESCRIPTION OF PROCEDURE: After informed consent was obtained, the patient was taken to the angiography suite and placed in supine position on the angiography table. The right groin region was prepped and draped in the standard sterile surgical fashion. After local infiltration of Lidocaine, I accessed the right common femoral artery under direct ultrasound visualization and placed a 4- New Zealander sheath into the vessel. I then placed an 0.035 Glidewire through the sheath and advanced this into the abdominal aorta. The sheath was then exchanged for a short 5-New Zealander sheath. Using a ContraFlush catheter and an angled Geneva catheter, I cannulated the left common femoral artery. Left lower extremity arteriogram was obtained. This revealed significant distal superficial femoral disease and disease of the anterior tibial, posterior tibial, and peroneal arteries. The patient was then administered 5000 units of Heparin intravenously. After 3 minutes, I exchanged the 5-New Zealander sheath for a 5-New Zealander 45 cm Emmett sheath over the stiff 0.035 Glidewire. Using a 0.014 Spartacore wire and an angled Glidecatheter, I cannulated the left anterior tibial artery. I then exchanged the Geneva catheter for a CSX-14 crossing catheter. This was directed into the distal anterior tibial artery through the area of occlusion. I then performed a balloon angioplasty of the anterior tibial artery with a 2 mm x 300 mm Ultraverse balloon. I then removed the balloon and wire from the anterior tibial artery and directed the wire into the posterior tibial artery. I then performed a balloon angioplasty of the proximal to mid posterior tibial artery with a 2 mm x 300 mm Ultraverse balloon. Completion arteriogram wasobtained. This revealed widely patent posterior tibial artery with no contrast extravasation or flow limiting dissection. I then performed a balloon angioplasty of the superficial femoral artery lesion with a 4 mm x 40 cm Ultraverse balloon. Completion arteriogram was obtained. This revealed widely patent segment with no flow limiting dissection or contrast extravasation. The wire and balloon were removed from the patient. The sheath was then withdrawn to the right external iliac artery. The patient was then taken to the recovery room for removal of the sheath. #[id number] /NTS * Brief Op Note - Sunita Nails MD - 07/04/2019 2:06 PM CDT Brief op note - Procedure Note Archanaleslie Nathan Louise 07/04/2019 Procedure: STAR Pre-Op Diagnosis: Bacteremia Post-Op Diagnosis: No evidence of endocarditis Findings: STAR performed with no intracardiac thrombi seen or evidence of endocarditis. Mild MR, triv AI, triv TR, moderate concentric LVH. Full report to follow. Complications: None Specimen(s) Removed: None Anesthesia: General TIVA: propofol 130 mg . Lidocaine 130 mg. Normal Saline 250 ml. Surgeon: SUNITA NAILS MD Estimated Blood Loss: none SUNITA NAILS MD documented in this encounter ED Notes * Dimas Gooden RN - 06/28/2019 7:20 PM CDT Central monitoring verified they can see the patient on the monitor. DIMAS GOODEN RN * Ivelisse Myers RN - 06/28/2019 3:19 PM CDT Patient transported to CT * Onelia Guerrero RN - 06/28/2019 2:56 PM CDT Spoke to patient's son and daughter. Patient makes her own medical decisions. Patient lives with her granddaughter. Patient's daughter reports she received a phone call about 3 hours ago saying she fell. Patient's daughter reports patient's granddaughter was home at the time of the fall. Son wants patient to reside in a prison, daughter says patient is planning to live in her own home aloneonce construction is finished. * Onelia Guerrero RN - 06/28/2019 2:30 PM CDT Unable to obtain axillary temperature. Patient not responsive enough for an oral temperature. Rectal temperature obtained and it is 92.5F. While obtaining rectal temperature, multiple sores visible (left buttocks, left posterior calf, left heel). Clothing removed and BareHugger applied. No responseto Narcan. * Onelia Guerrero RN - 06/28/2019 2:10 PM CDT SPO2 dropped down to 60% with a good wave form and patient snoring. Patient less responsive to verbal stimuli. Patient responds to painful stimuli. After painful stimuli, SPO2 back up to 100%. MD at bedside and Narcan ordered. * Amanda Moore MD - 06/28/2019 2:09 PM CDTAssociated Order(s): Critical Care Emergency Department Note Chief Complaint Chief Complaint Patient presents with ??? Fall ??? Hyperglycemia History of Present Illness This is a 64-year-old female who has a history of diabetes, hypertension schizophrenia who is brought in by EMS after a fall. It is unknown why she fell and patient cannot provide details. Patient iscurrently living with her granddaughter who reportedly was at the house when she fell. Patient has a history of diabetes but ran out of her insulin recently. Medical History ALLERGIES: Allergies Allergen Reactions ??? Codeine Nausea and Vomiting MEDICATIONS: Prior to Admission medications Medication Sig Start Date End Date Taking? Authorizing Provider chlorthalidone 25 MG tablet Take 1 tablet (25 mg total) by mouth daily. 05/17/19 Fabiola Carter MD gabapentin 300 MG capsule Take 1 capsule (300 mg total) by mouth 3 (three) times daily. 05/16/19 Fabiola Carter MD insulin glargine (LANTUS SOLOSTAR) 100 UNIT/ML injection (PEN) Inject 20 Units into the skin nightly at bedtime. 06/07/19 Loraine Penaloza MD levothyroxine 50 MCG tablet Take 1 tablet (50 mcg total) by mouth daily. 06/08/19 Loraine Penaloza MD PAST MEDICAL HISTORY: Past Medical History: Diagnosis Date ??? Cancer (CMS/HCC) breast ??? Diabetes mellitus (CMS/HCC) ??? Disease of thyroid gland ??? Hypertension ??? Schizophrenia (CMS/HCC) PAST SURGICAL HISTORY: Past Surgical History: Procedure Laterality Date ??? BREAST SURGERY Bilateral ??? KNEE SURGERY Right ??? REMOVAL OF OVARY(S) Left ??? UPPER ARM/ELBOW SURGERY UNLISTED Right FAMILY HISTORY: Family History Family history unknown: Yes SOCIAL HISTORY: Social History Tobacco Use ??? Smoking status: Never Smoker ??? Smokeless tobacco: Never Used Substance Use Topics ??? Alcohol use: No Frequency: Never ??? Drug use: No Review of Systems Review of Systems Unable to perform ROS: Patient unresponsive Skin: Negative for rash. Physical Exam Filed Vitals: 06/28/19 1445 06/28/19 1449 06/28/19 1500 06/28/19 1630 BP: (!) 155/95 (!) 155/95 149/69 145/65 Pulse: 68 69 69 66 Resp: 15 15 12 11 Temp: TempSrc: SpO2: 100% 99% 100% 98% Weight: Height: Physical Exam Constitutional: She appears well-developed and well-nourished. HENT: Head: Normocephalic and atraumatic. Mouth/Throat: Oropharynx is clear and moist. 1 cm laceration to the left presybeterian. There is periorbital ecchymoses bilaterally. There is an abrasion and ecchymosis to the bridge of the nose. Eyes: Pupils pinpoint bilaterally Neck: Cervical collar in place Cardiovascular: Normal rate and regular rhythm. Pulmonary/Chest: Effort normal and breath sounds normal. No stridor. Abdominal: Soft. There is no tenderness. Large nontender periumbilical hernia Musculoskeletal: She exhibits no deformity. Neurological: She is alert. Patient opens her eyes and moans to voice. She has weak but equal handgrips bilaterally. She does not follow any other commands. Skin: Skin is warm and dry. Large decubitus ulcer to the left buttock. Decubitus ulcer to the left calf. Decubitus ulcer to theright heel. Nursing note and vitals reviewed. Diagnostic Studies / Procedures ELECTROCARDIOGRAMS: Results for orders placed or performed during the hospital encounter of 06/28/19 ECG 12 lead Narrative [address] Test Date: 2019-06-28 Pat Name: IRIS GIL Department: Room: [id number] Gender: Female Tennis Director: DIONICIO : 1955 Requested By: AMANDA MOORE Order Number: [id number] Reading MD: Jonatan Aldrich Measurements Intervals [place] Rate: 70 P: 54 MO: 168 QRS: -43 QRSD: 117 T: 127 QT: 435 QTc: 470 Interpretive Statements SINUS RHYTHM MARKED LEFT AXIS DEVIATION POSSIBLE ANTERIOR MYOCARDIAL INFARCTION, OF INDETERMINATE AGE MODERATE T-WAVE ABNORMALITY, CONSIDER LATERAL ISCHEMIA Compared to ECG 06/05/2019 14:03:27 T-wave abnormality now present Possible ischemia now present Left anterior fascicular block no longer present ST (T wave) deviation no longer present Myocardial infarct finding still present LABORATORY STUDIES: Results for orders placed or performed during the hospital encounter of 06/28/19 CBC W/DIFF AUTOMATED Result Value Ref Range WBC 6.8 4.5 - 11.0 x10'3/uL RBC 3.47 (L) 4.20 - 5.40 x10'6/uL HGB 10.2 (L) 12.0 - 16.0 G/DL HCT 30.8 (L) 38.0 - 48.0 % MCV 88.8 81.0 - 99.0 FL MCH 29.4 27.0 - 31.0 PG MCHC 33.1 32.0 - 36.0 G/DL RDW 14.7 (H) 11.5 - 14.5 % PLT 267 130 - 400 x10'3/uL MPV 11.0 9.3 - 12.2 FL DIFFERENTIAL TYPE AUTOMATED DIFFERENTIAL NEUTROPHILS 74.0 % LYMPHOCYTES 16.1 % MONOCYTES 6.2 % EOSINOPHILS 1.0 % BASOPHILS 0.6 % IMMATURE GRANS 2.1 % ABS. NEUTROPHILS TOTAL 5.03 1.80 - 7.70 x10'3/uL ABS. LYMPHOCYTES 1.09 1.00 - 4.80 x10'3/uL ABS. MONOCYTES 0.42 0.24 - 0.86 x10'3/uL ABS. EOSINOPHILS 0.07 0.04 - 0.36 x10'3/uL ABS. BASOPHILS 0.04 0.01 - 0.08 x10'3/uL ABS. IMMATURE GRANULOCYTES 0.14 0.00 - 0.49 x10'3/uL COMPREHENSIVE METABOLIC PANEL Result Value Ref Range GLUCOSE 570 (HH) 70 - 99 MG/DL BUN 26 (H) 7 - 18 MG/DL CREATININE S/P/B 1.31 (H) 0.55 - 1.02 MG/DL SODIUM 133 (L) 136 - 145 MMOL/L POTASSIUM 4.1 3.5 - 5.1 MMOL/L CHLORIDE S/P/B 92 (L) 100 - 108 MMOL/L CO2 33.3 (H) 21 - 32 MMOL/L CALCIUM 9.5 8.5 - 10.1 MG/DL TOTAL BILIRUBIN S/P/B 0.5 0.2 - 1.2 MG/DL TOTAL PROTEIN 8.1 6.4 - 8.2 G/DL ALBUMIN S/P/B 2.9 (L) 3.4 - 5.0 G/DL AST 28 15 - 37 U/L ALT 39 14 - 55 U/L ALK PHOS 75 50 - 136 U/L ANION GAP 7.7 5 - 15 MMOL/L BUN CREATININE RATIO 19.8 6 - 26 A/G RATIO 0.6 (L) 1.0 - 2.0 RATIO eGFR Non-Afr. Amer. 43 (L) >90 ML/MIN/1.73 M2 eGFR Afr. Amer. 50 (L) >90 ML/MIN/1.73 M2 TROPONIN, QUANT Result Value Ref Range TROPONIN I 0.130 (HH) <0.045 ng/mL. CK (CPK) Result Value Ref Range CPK 152 21 - 215 U/L IMAGING STUDIES CT HEAD WO CON Final Result by User, [id number] (06/27 1540) Examination: CT of the head without contrast. [...] calcification in the basal ganglia is again evident. There is stable periventricular decreased attenuation, compatible with small vessel disease. Intracranially, no new areas of abnormal x-ray attenuation are identified. In particular, there is no mass, hemorrhage or sign of acute stroke. No extracerebral fluid collections. The skull appears intact. The mastoid air cells and visualized paranasal sinuses appear clear. There is left supraorbital scalp swelling. IMPRESSION: 1. No acute intracranial process identified. 2. Stable cortical atrophy and small vessel disease. 3. Left supraorbital scalp swelling. Interpreted By: Xavier Costa MD, 06/28/2019 3:[address] CERV SPINE WO CON Final Result by User, [id number] (06/27 5439) Examination: CT of the cervical spine. Exam [...] By: Xavier Costa MD, 06/28/2019 3:46 PM XR CHEST PORTABLE Final Result by User, [id number] (06/27 4517) Examination: Chest x-ray 1 view Exam date/time: [...] Old healed granulomatous disease. 4. Suboptimal exam. Critical Care Performed by: Amanda Moore MD Authorized by: Amanda Moore MD Critical care provider statement: Critical care time (minutes): 35 Critical care time was exclusive of: Separately billable procedures and treating other patients Critical care was necessary to treat or prevent imminent or life-threatening deterioration of the following conditions: COMPENSATION INTERN failure or compromise Critical care was time spent personally by me on the following activities: Development of treatmentplan with patient or surrogate, discussions with consultants, evaluation of patient's response to treatment, examination of patient, obtaining history from patient or surrogate, review of old charts,re- evaluation of patient's condition, pulse oximetry, ordering and review of radiographic studies, ordering and review of laboratory studies and ordering and performing treatments and interventions ED Course / Medical Decision Making ED Course as of Jun 27 1722MonJun 28, 2019 1430 Given pinpoint pupils and poor responsiveness given a dose of narcan, however there was no significant response. [BH] 1432 Patient hypothermic so we will start Kain hugger [] 1521 EKG shows sinus rhythm. Rate 70. Marked left axis deviation. T wave inversion in 1, aVL. Q waves anteriorly. [BH] 1623 Patient with hyperglycemia but no DKA. Creatinine is elevated so we will start IV fluids. [] [address] Iverson who will admit to tele. [] 1719 TNI elevated but no ischemic change on EKG. Consulted with Dr. Vásquez who recommends echo, trend trops, Aspirin. [] ED Course User Index [] Amanda Moore MD Medications sodium chloride 0.9% infusion ( Intravenous New Bag 06/28/19 1538) aspirin tablet 325 mg (has no administration in time range) naLOXone (NARCAN) injection 0.4 mg (0.4 mg Intravenous Given 06/28/19 1420) Tdap (BOOSTRIX) injection 0.5 mL (0.5 mLs Intramuscular Given 06/28/19 1514) insulin regular (NOVOLIN R/HUMULIN R) injection 8 Units (8 Units Intravenous Given 06/28/19 1640) Clinical Impression Encephalopathy (Primary) Elevated troponin Current Discharge Medication List Disposition: Admit Follow-Up: No follow-up provider specified. Amanda Moore MD 06/28/2019 Amanda Moore MD 06/28/19 1723 * Onelia Guerrero RN - 06/28/2019 1:34 PM CDT Patient here via EMS from home for a fall. Patient was in the kitchen when she tripped and fell. Patient hit the left side of her forehead. Bandage in place, minimal bleeding, small laceration above left eye. No LOC. EMS reports she did not fall due to lightheadedness or dizziness. Patient only answering some questions. When asked patient why she fell, patient is unable to give an answer. Patientdenies taking blood thinners. Patient will not answer if she uses a walker or cane. C-collar in place. Patient is diabetic and has been out of insulin. Blood sugar for EMS is 576. * Jef Mallory RN - 06/28/2019 1:27 PM CDT Bed: 17 Expected date: Expected time: Means of arrival: Comments: [id number]- room 17 documented in this encounter Plan of Treatment Not on file documented as of this encounter Procedures Procedure Name Priority Date/Time Associated Diagnosis Comments POCT GLUCOSE - CHONG DOCKED DEVICE Routine 07/09/2019 2:10 PM CDT POCT GLUCOSE - CHONG DOCKED DEVICE Routine 07/09/2019 11:01 AM CDT POCT GLUCOSE - CHONG DOCKED DEVICE Routine 07/09/2019 7:48 AM CDT BASIC METABOLIC PANEL Routine 07/09/2019 7:20 AM CDT CBC W/DIFF AUTOMATED Routine 07/09/2019 7:20 AM CDT POCT GLUCOSE - CHONG DOCKED DEVICE Routine 07/09/2019 4:45 AM CDT POCT GLUCOSE - CHONG DOCKED DEVICE Routine 07/08/2019 8:37 PM CDT POCT GLUCOSE - CHONG DOCKED DEVICE Routine 07/08/2019 5:36 PM CDT XR ABD KUB Today 07/08/2019 4:51 PM CDT POCT GLUCOSE - CHONG DOCKED DEVICE Routine 07/08/2019 11:17 AM CDT BASIC METABOLIC PANEL Routine 07/08/2019 9:26 AM CDT CBC W/DIFF AUTOMATED Routine 07/08/2019 9:26 AM CDT POCT GLUCOSE - CHONG DOCKED DEVICE Routine 07/08/2019 5:11 AM CDT POCT GLUCOSE - CHONG DOCKED DEVICE Routine 07/07/2019 9:00 PM CDT POCT GLUCOSE - CHONG DOCKED DEVICE Routine 07/07/2019 4:35 PM CDT POCT GLUCOSE - CHONG DOCKED DEVICE Routine 07/07/2019 10:59 AM CDT BASIC METABOLIC PANEL Routine 07/07/2019 10:48 AM CDT CBC W/DIFF AUTOMATED Routine 07/07/2019 10:48 AM CDT POCT GLUCOSE - CHONG DOCKED DEVICE Routine 07/07/2019 5:47 AM CDT POCT GLUCOSE - CHONG DOCKED DEVICE Routine 07/06/2019 11:43 PM CDT POCT GLUCOSE - CHONG DOCKED DEVICE Routine 07/06/2019 10:10 PM CDT POCT GLUCOSE - CHONG DOCKED DEVICE Routine 07/06/2019 9:22 PM CDT POCT GLUCOSE - CHONG DOCKED DEVICE Routine 07/06/2019 9:03 PM CDT POCT GLUCOSE - CHONG DOCKED DEVICE Routine 07/06/2019 8:30 PM CDT POCT GLUCOSE - CHONG DOCKED DEVICE Routine 07/06/2019 5:23 PM CDT BASIC METABOLIC PANEL Routine 07/06/2019 12:08 PM CDT CBC W/DIFF AUTOMATED Routine 07/06/2019 12:08 PM CDT POCT GLUCOSE - CHONG DOCKED DEVICE Routine 07/06/2019 10:57 AM CDT POCT GLUCOSE - CHONG DOCKED DEVICE Routine 07/06/2019 5:44 AM CDT POCT GLUCOSE - CHONG DOCKED DEVICE Routine 07/05/2019 8:25 PM CDT POCT GLUCOSE - CHONG DOCKED DEVICE Routine 07/05/2019 4:47 PM CDT POCT ACTIVATED CLOTTING TIME - ISTAT DOCKED DEVICE Routine 07/05/2019 2:44 PM CDT POCT ACTIVATED CLOTTING TIME - ISTAT DOCKED DEVICE Routine 07/05/2019 2:22 PM CDT POCT GLUCOSE - CHONG DOCKED DEVICE Routine 07/05/2019 11:35 AM CDT POCT GLUCOSE - CHONG DOCKED DEVICE Routine 07/05/2019 6:34 AM CDT PARTIAL THROMBOPLASTIN TIME,PTT Routine 07/05/2019 5:25 AM CDT PROTHROMBIN TIME, VENOUS Routine 07/05/2019 5:25 AM CDT BASIC METABOLIC PANEL Routine 07/05/2019 5:25 AM CDT CBC W/DIFF AUTOMATED Routine 07/05/2019 5:25 AM CDT POCT GLUCOSE - CHONG DOCKED DEVICE Routine 07/05/2019 4:06 AM CDT POCT GLUCOSE - CHONG DOCKED DEVICE Routine 07/04/2019 10:23 PM CDT CK (CPK) Routine 07/04/2019 10:11 PM CDT POCT GLUCOSE - CHONG DOCKED DEVICE Routine 07/04/2019 8:49 PM CDT POCT GLUCOSE - CHONG DOCKED DEVICE Routine 07/04/2019 3:47 PM CDT USE TRANSESOPHAGEAL ECHO Today 07/04/2019 2:15 PM CDT POCT GLUCOSE - CHONG DOCKED DEVICE Routine 07/04/2019 11:46 AM CDT COMPREHENSIVE METABOLIC PANEL Routine 07/04/2019 6:37 AM CDT CBC W/DIFF AUTOMATED Routine 07/04/2019 6:37 AM CDT POCT GLUCOSE - CHONG DOCKED DEVICE Routine 07/04/2019 6:09 AM CDT POCT GLUCOSE - CHONG DOCKED DEVICE Routine 07/03/2019 9:00 PM CDT POCT GLUCOSE - CHONG DOCKED DEVICE Routine 07/03/2019 6:04 PM CDT TRANSFUSE RED BLOOD CELLS Routine 07/03/2019 3:00 PM CDT CULTURE, BACTERIA, BLOOD Routine 07/03/2019 1:49 PM CDT CULTURE, BACTERIA, BLOOD Routine 07/03/2019 1:49 PM CDT TYPE & SCREEN Routine 07/03/2019 12:10 PM CDT IRON SAT PANEL (IRON,IBC,%SAT) Routine 07/03/2019 7:51 AM CDT VITAMIN B-12 Routine 07/03/2019 7:51 [address] CT, AUTO Routine 07/03/2019 7:51 AM CDT BASIC METABOLIC PANEL Routine 07/03/2019 7:51 AM CDT FOLIC ACID SERUM Routine 07/03/2019 7:51 AM CDT CBC W/DIFF AUTOMATED Routine 07/03/2019 7:51 AM CDT FERRITIN Routine 07/03/2019 7:51 AM CDT POCT GLUCOSE - CHONG DOCKED DEVICE Routine 07/03/2019 6:17 AM CDT POCT GLUCOSE - CHONG DOCKED DEVICE Routine 07/02/2019 9:02 PM CDT POCT GLUCOSE - CHONG DOCKED DEVICE Routine 07/02/2019 3:59 PM CDT MRI ANKLE RT WO CON Today 07/02/2019 3 :28 PM CDT VANCOMYCIN TROUGH TIMED 07/02/2019 11: 28 AM CDT BASIC METABOLIC PANEL Routine 07/02/2019 11:28 AM CDT CULTURE, BACTERIA, BLOOD Routine 07/02/2019 11:28 AM CDT CULTURE, BACTERIA, BLOOD Routine 07/02/2019 11:28 AM CDT CBC W/DIFF AUTOMATED Routine 07/02/2019 11:28 AM CDT THYROXINE, FREE (FT4) Routine 07/02/2019 11:28 AM CDT POCT GLUCOSE - CHONG DOCKED DEVICE Routine 07/02/2019 10:51 AM CDT POCT GLUCOSE - CHONG DOCKED DEVICE Routine 07/02/2019 6:01 AM CDT VANCOMYCIN TROUGH TIMED 07/01/2019 10: 00 PM CDT POCT GLUCOSE - CHONG DOCKED DEVICE Routine 07/01/2019 9:44 PM CDT POCT GLUCOSE - CHONG DOCKED DEVICE Routine 07/01/2019 4:30 PM CDT POCT GLUCOSE - CHONG DOCKED DEVICE Routine 07/01/2019 3:40 PM CDT POCT GLUCOSE - CHONG DOCKED DEVICE Routine 07/01/2019 11:13 AM CDT BASIC METABOLIC PANEL Routine 07/01/2019 9:51 AM CDT CBC W/DIFF AUTOMATED Routine 07/01/2019 9:51 AM CDT POCT GLUCOSE - CHONG DOCKED DEVICE Routine 07/01/2019 8:57 AM CDT POCT GLUCOSE - CHONG DOCKED DEVICE Routine 07/01/2019 6:47 AM CDT POCT GLUCOSE - CHONG DOCKED DEVICE Routine 07/01/2019 6:08 AM CDT POCT GLUCOSE - CHONG DOCKED DEVICE Routine 06/30/2019 9:51 PM CDT POCT GLUCOSE - CHONG DOCKED DEVICE Routine 06/30/2019 8:37 PM CDT POCT GLUCOSE - CHONG DOCKED DEVICE Routine 06/30/2019 3:50 PM CDT USE ECHOCARDIOGRAM W CON Today 06/30/2019 12:58 PM CDT POCT GLUCOSE - CHONG DOCKED DEVICE Routine 06/30/2019 11:47 AM CDT POCT GLUCOSE - CHONG DOCKED DEVICE Routine 06/30/2019 8:03 AM CDT POCT GLUCOSE - CHONG DOCKED DEVICE Routine 06/30/2019 7:21 AM CDT POCT GLUCOSE - CHONG DOCKED DEVICE Routine 06/30/2019 6:59 AM CDT BASIC METABOLIC PANEL Routine 06/30/2019 6:45 AM CDT CBC W/DIFF AUTOMATED Routine 06/30/2019 6:45 AM CDT POCT GLUCOSE - CHONG DOCKED DEVICE Routine 06/30/2019 6:40 AM CDT POCT GLUCOSE - CHONG DOCKED DEVICE Routine 06/29/2019 8:12 PM CDT POCT GLUCOSE - CHONG DOCKED DEVICE Routine 06/29/2019 4:02 PM CDT BASIC METABOLIC PANEL Routine 06/29/2019 1:52 PM CDT LIPID PANEL Routine 06/29/2019 1:52 PM CDT CBC W/DIFF AUTOMATED Routine 06/29/2019 1:52 PM CDT THYROID STIM HORMONE TSH Routine 06/29/2019 1:52 PM CDT POCT GLUCOSE - CHONG DOCKED DEVICE Routine 06/29/2019 11:36 AM CDT POCT GLUCOSE - CHONG DOCKED DEVICE Routine 06/29/2019 6:24 AM CDT TROPONIN, QUANT TIMED 06/29/2019 2:35 AM CDT LACTIC ACID TIMED 06/29/2019 12:09 AM CDT TROPONIN, QUANT TIMED 06/28/2019 9:34 PM CDT POCT GLUCOSE - CHONG DOCKED DEVICE Routine 06/28/2019 8:20 PM CDT TROPONIN, QUANT STAT 06/28/2019 7:42 PM CDT LACTIC ACID TIMED 06/28/2019 6:24 PM CDT CULTURE, BACTERIA, BLOOD Routine 06/28/2019 6:24 PM CDT CULTURE, BACTERIA, BLOOD Routine 06/28/2019 6:24 PM CDT HC URINALYSIS AUTO W/O MICRO STAT 06/28/2019 6:09 PM CDT URINE BACTERIA CULTURE Routine 0 6:09 PM CDT POCT GLUCOSE - CHONG DOCKED DEVICE Routine 06/28/2019 5:[address] HEAD WO CON STAT 06/28/2019 3:[address] CERV SPINE WO CON STAT 06/28/2019 3:33 PM CDT XR CHEST PORTABLE STAT 06/28/2019 2:2 8 PM CDT COMPREHENSIVE METABOLIC PANEL STAT 06/28/2019 2:26 PM CDT CBC W/DIFF AUTOMATED STAT 06/28/2019 2:26 PM CDT TROPONIN, QUANT STAT 06/28/2019 2:26 PM CDT CK (CPK) STAT 06/28/2019 2:26 PM CDT CRITICAL CARE Routine 06/28/2019 2:09 PM CDT ECG 12-LEAD Routine 06/28/2019 2:08 PM CDT documented in this encounter Results * (ABNORMAL) POCT glucose (07/09/2019 2:10 PM CDT) GLUCOSE POC 238(H) 70 - 99 mg/dL 07/09/2019 4:47 PM CDT [facility] ORDERS INTERFACE 07/09/2019 2:10 PM CDT Andres Khan MESSAGE BROKER DEVELOPER POCT ORDERABLES - DEVICE Final Result Performing Organization Address [facility] Phone Number [facility] ORDERS INTERFACE US * (ABNORMAL) POCT glucose (07/09/2019 11:01 AM CDT) GLUCOSE POC 239(H) 70 - 99 mg/dL 07/09/2019 11:16 AM CDT [facility] ORDERS INTERFACE 07/09/2019 11:0 1 AM CDT Andres Khan MESSAGE BROKER DEVELOPER POCT ORDERABLES - DEVICE Final Result Performing Organization Address [facility] de Phone Number [facility] ORDERS INTERFACE US * POCT glucose (07/09/2019 7:48 AM CDT) GLUCOSE POC 86 70 - 99 mg/dL 07/09/2019 7:53 AM CDT [facility] ORDERS INTERFACE 07/09/2019 7:48 AM CDT Andres Khan MESSAGE BROKER DEVELOPER POCT ORDERABLES - DEVICE Final Result Performing Organization Address [facility] Co de Phone Number [facility] ORDERS INTERFACE US * (ABNORMAL) BASIC METABOLIC PANEL (07/09/2019 7:20 AM CDT) GLUCOSE 83 70 - 99 MG/DL 07/09/2019 8:29 AM T [facility] BUN 15 7 - 18 MG/DL 07/09/2019 8:29 AM [facility] CREATININE S/P/B 0.61 0.55 - 1.02 MG/DL 07/09/2019 8:29 AM [facility] SODIUM S/P/B 139 136 - 145 MMOL/L 07/09/2019 8:29 AM T [facility] POTASSIUM S/P/B 3.9 3.5 - 5.1 MMOL/L 07/09/2019 8:29 AM T [facility] CHLORIDE S/P/B 100 100 - 108 MMOL/L 07/09/2019 8:29 AM [facility] CO2 33.4(H) 21 - 32 MMOL/L 07/09/2019 8:29 AM T [facility] CALCIUM S/P/B 8.3(L) 8.5 - 10.1 MG/DL 07/09/2019 8:29 AM T [facility] ANION GAP 5.6 5 - 15 MMOL/L 07/09/2019 8:29 AM [facility] BUN CREATININE RATIO 24.8 6 - 26 07/09/2019 8:29 AM [facility] EGFR NON-AFR. AMER. >90 >90 ML/MIN/1.7 3 M2 07/09/2019 8:29 AM [facility] EGFR AFR. AMER. >90 >90 ML/MIN/1.7 3 M2 07/09/2019 8:29 AM [facility] Comment: NOTE: eGFR is not calculated for patients <18 years of age. This is an estimated GFR (CKD EPI) and should not be used for calculating drug doses. 07/09/2019 7:20 AM CDT Andres Khan MESSAGE BROKER DEVELOPER LABORATORY Final Result [facility] [address] [place] [address], [place] [phone] * (ABNORMAL) CBC W/DIFF AUTOMATED (07/09/2019 7:20 AM CDT) [facility] WBC 6.5 4.5 - 11.0 x10'3/uL 07/09/2019 8:05 AM CDT [facility] RBC 3.02(L) 4.20 - 5.40 x10'6/uL 07/09/2019 8:05 AM CDT [facility] HGB 8.7(L) 12.0 - 16.0 G/DL 07/09/2019 8:05 AM CDT [facility] HCT 27.2(L) 38.0 - 48.0 % 07/09/2019 8:05 AM CDT [facility] MCV 90.1 80.0 - 94.0 FL 07/09/2019 8:05 AM CDT [facility] MCH 28.8 27.0 - 31.0 PG 07/09/2019 8:05 AM CDT [facility] MCHC 32.0 32.0 - 36.0 G/DL 07/09/2019 8:05 AM CDT [facility] RDW 16.5(H) 11.5 - 14.5 % 07/09/2019 8:05 AM CDT [facility] PLT 299 130 - 400 x10'3/uL 07/09/2019 8:05 AM CDT [facility] MPV 9.5 9.3 - 12.2 FL 07/09/2019 8:05 AM CDT [facility] DIFFERENTIAL TYPE AUTOMATED DIFFERENTIAL 07/09/2019 8:05 AM CDT [facility] NEUTROPHILS % 68.6 % 07/09/2019 8:05 AM CDT [facility] LYMPHOCYTES % 19.5 % 07/09/2019 8:05 AM CDT [facility] MONOCYTES % 8.0 % 07/09/2019 8:05 AM CDT [facility] EOSINOPHILS 2.6 % 07/09/2019 8:05 AM CDT [facility] BASOPHILS 0.5 % 07/09/2019 8:05 AM CDT [facility] IMMATURE GRANS % 0.8 % 07/09/19 20 8:05 AM CDT [facility] ABS. NEUTROPHILS TOTAL 4.47 1.80 - 7.70 x10'3/uL 07/09/2019 8:05 AM CDT [facility] ABS. LYMPHOCYTES 1.27 1.00 - 4.80 x10'3/uL 07/09/2019 8:05 AM CDT [facility] ABS. MONOCYTES 0.52 0.24 - 0.86 x10'3/uL 07/09/2019 8:05 AM CDT [facility] ABS. EOSINOPHILS 0.17 0.04 - 0.36 x10'3/uL 07/09/2019 8:05 AM T [facility] ABS. BASOPHILS 0.03 0.01 - 0.08 x10'3/uL 07/09/2019 8:05 AM T [facility] ABS. IMMATURE GRANULOCYTES 0.05 0.00 - 0.49 x10'3/uL 07/09/2019 8:05 AM T [facility] 07/09/2019 7:20 AM CDT Darah R Dodt MESSAGE BROKER DEVELOPER LABORATORY Final Result Performing Organization Address [facility] Co de Phone Number [facility] [address] [place] [address], [place] [phone] * POCT glucose (07/09/2019 4:45 AM CDT) GLUCOSE POC 83 70 - 99 mg/dL 07/09/2019 4:51 AM CDT [facility] ORDERS INTERFACE 07/09/2019 4:45 AM CDT Andres R Kari MESSAGE BROKER DEVELOPER POCT ORDERABLES - DEVICE Final Result Performing Organization Address [facility] de Phone Number [facility] ORDERS INTERFACE US * (ABNORMAL) POCT glucose (07/08/2019 8:37 PM CDT) GLUCOSE POC 144(H) 70 - 99 mg/dL 07/09/2019 2:19 AM CDT [facility] ORDERS INTERFACE 07/08/2019 8:37 PM CDT Andres R Kari MESSAGE BROKER DEVELOPER POCT ORDERABLES - DEVICE Final Result Performing Organization Address [facility] de Phone Number [facility] ORDERS INTERFACE US * (ABNORMAL) POCT glucose (07/08/2019 5:36 PM CDT) GLUCOSE POC 120(H) 70 - 99 mg/dL 07/08/2019 5:38 PM CDT [facility] ORDERS INTERFACE 07/08/2019 5:36 PM CDT Andres R Kari MESSAGE BROKER DEVELOPER POCT ORDERABLES - DEVICE Final Result Performing Organization Address [facility] Co de Phone Number [facility] ORDERS INTERFACE US * XR ABD KUB (07/08/2019 4:51 PM CDT) Anatomical Region Laterality Modality Abdomen Fluoroscopy 07/08/2019 4:55 PM CDT Impressions 07/08/2019 4:56 PM CDT IMPRESSION: 1) Constipation with at least moderate stool throughout the colon with redundancy and mild distention of the colon. Narrative 07/08/2019 4:56 PM CDT Examination: XR ABD KUB Exam time: 07/08/2019 [...] if further needed also CT abdomen pelvis. Procedure Note Gary Erwin MD - 07/08/2019 Examination: XR ABD KUB Exam time: 07/08/2019 4:35 PM Clinical history: Distention. Firmness. Comparison: Prior radiographs performed June 2016 Technique: Abdomen radiograph one view. Findings: Postoperative changes are seen in the abdomen. There ismoderate stool retention in the colon especially in [...] redundancy and mild distention of the colon. [facility] MESSAGE BROKER DEVELOPER GENERAL IMAGING Final Result * (ABNORMAL) POCT glucose (07/08/2019 11:17 AM CDT) GLUCOSE POC 125(H) 70 - 99 mg/dL 07/08/2019 3:31 PM CDT [facility] ORDERS INTERFACE 07/08/2019 11:1 7 AM CDT us Andres Rust Kari BARNES POCT ORDERABLES - DEVICE Final Result [facility] ORDERS INTERFACE US * (ABNORMAL) CBC W/DIFF AUTOMATED (07/08/2019 9:26 AM CDT) WBC 7.7 4.5 - 11.0 x10'3/uL 07/08/2019 9:41 AM CDT [facility] RBC 2.75(L) 4.20 - 5.40 x10'6/uL 07/08/2019 9:41 AM CDT [facility] HGB 7.9(L) 12.0 - 16.0 G/DL 07/08/2019 9:41 AM CDT [facility] HCT 24.9(L) 38.0 - 48.0 % 07/08/2019 9:41 AM CDT [facility] MCV 90.5 81.0 - 99.0 FL 07/08/2019 9:41 AM CDT [facility] MCH 28.7 27.0 - 31.0 PG 07/08/2019 9:41 AM CDT [facility] MCHC 31.7(L) 32.0 - 36.0 G/DL 07/08/2019 9:41 AM CDT [facility] RDW 16.4(H) 11.5 - 14.5 % 07/08/2019 9:41 AM CDT [facility] PLT 250 130 - 400 x10'3/uL 07/08/2019 9:41 AM CDT [facility] MPV 9.5 9.3 - 12.2 FL 07/08/2019 9:41 AM CDT [facility] DIFFERENTIAL TYPE AUTOMATED DIFFERENTIAL 07/08/2019 9:41 AM CDT [facility] NEUTROPHILS % 72.8 % 07/08/2019 9:41 AM CDT [facility] LYMPHOCYTES % 16.3 % 07/08/2019 9:41 AM CDT [facility] MONOCYTES % 7.1 % 07/08/2019 9:41 AM CDT [facility] EOSINOPHILS 2.2 % 07/08/2019 9:41 AM CDT [facility] BASOPHILS 0.4 % 07/08/2019 9:41 AM CDT [facility] IMMATURE GRANS % 1.2 % 07/08/19 9:41 AM CDT [facility] ABS. NEUTROPHILS TOTAL 5.61 1.80 - 7.70 x10'3/uL 07/08/2019 9:41 AM CDT [facility] ABS. LYMPHOCYTES 1.26 1.00 - 4.80 x10'3/uL 07/08/2019 9:41 AM CDT [facility] ABS. MONOCYTES 0.55 0.24 - 0.86 x10'3/uL 07/08/2019 9:41 AM CDT [facility] ABS. EOSINOPHILS 0.17 0.04 - 0.36 x10'3/uL 07/08/2019 9:41 AM CDT [facility] ABS. BASOPHILS 0.03 0.01 - 0.08 x10'3/uL 07/08/2019 9:41 AM CDT [facility] ABS. IMMATURE GRANULOCYTES 0.09 0.00 - 0.49 x10'3/uL 07/08/2019 9:41 AM T [facility] 07/08/2019 9:26 AM CDT Fabiola Carter MD LABORATORY Final Result [facility] [address] [place] [address], * (ABNORMAL) BASIC METABOLIC PANEL (07/08/2019 9:26 AM CDT) [facility] GLUCOSE 197(H) 70 - 99 MG/DL 07/08/2019 9:58 AM CDT [facility] BUN 18 7 - 18 MG/DL 07/08/2019 9:58 AM CDT [facility] CREATININE S/P/B 0.78 0.55 - 1.02 MG/DL 07/08/2019 9:58 AM CDT [facility] SODIUM S/P/B 135(L) 136 - 145 MMOL/L 07/08/2019 9:58 AM CDT [facility] POTASSIUM S/P/B 3.6 3.5 - 5.1 MMOL/L 07/08/2019 9:58 AM CDT [facility] CHLORIDE S/P/B 98(L) 100 - 108 MMOL/L 07/08/2019 9:58 AM CDT [facility] CO2 31.2 21 - 32 MMOL/L 07/08/2019 9:58 AM CDT [facility] CALCIUM S/P/B 8.2(L) 8.5 - 10.1 MG/DL 07/08/2019 9:58 AM CDT [facility] ANION GAP 5.8 5 - 15 MMOL/L 07/08/2019 9:58 AM CDT [facility] BUN CREATININE RATIO 23.0 6 - 26 07/08/2019 9:58 AM CDT [facility] EGFR NON-AFR. AMER. 80(L) >90 ML/MIN/1.7 3 M2 07/08/2019 9:58 AM CDT [facility] EGFR AFR. AMER. >90 >90 ML/MIN/1.7 3 M2 07/08/2019 9:58 AM CDT [facility] Comment: NOTE: eGFR is not calculated for patients <18 years of age. This is an estimated GFR (CKD EPI) and should not be used for calculating drug doses. 07/08/2019 9:26 AM CDT Fabiola Carter MD LABORATORY Final Result Performing Organization Address City/[facility] Co de Phone Number [facility] [address] [place] [id number], * (ABNORMAL) POCT glucose (07/08/2019 5:11 AM CDT) GLUCOSE POC 209(H) 70 - 99 mg/dL 07/08/2019 5:42 AM CDT [facility] ORDERS INTERFACE 07/08/2019 5:11 AM CDT Andres Khan APRN POCT ORDERABLES - DEVICE Final Result Performing Organization Address [facility] de Phone Number [facility] ORDERS INTERFACE US * (ABNORMAL) POCT glucose (07/07/2019 9:00 PM CDT) GLUCOSE POC 201(H) 70 - 99 mg/dL 07/07/2019 9:29 PM CDT [facility] ORDERS INTERFACE 07/07/2019 9:00 PM CDT Fabiola Carter MD POCT ORDERABLES - DEVICE Final Result Performing Organization Address [facility] Co de Phone Number [facility] ORDERS INTERFACE US * (ABNORMAL) POCT glucose (07/07/2019 4:35 PM CDT) GLUCOSE POC 181(H) 70 - 99 mg/dL 07/07/2019 4:42 PM CDT [facility] ORDERS INTERFACE 07/07/2019 4:35 PM CDT Fabiola Carter MD POCT ORDERABLES - DEVICE Final Result [facility] ORDERS INTERFACE US * (ABNORMAL) POCT glucose (07/07/2019 10:59 AM CDT) GLUCOSE POC 238(H) 70 - 99 mg/dL 07/07/2019 12:26 PM CDT [facility] ORDERS INTERFACE 07/07/2019 10:5 9 AM CDT Fabiola Carter MD POCT ORDERABLES - DEVICE Final Result Performing Organization Address [facility] Co de Phone Number [facility] ORDERS INTERFACE US * (ABNORMAL) BASIC METABOLIC PANEL (07/07/2019 10:48 AM CDT) GLUCOSE 223(H) 70 - 99 MG/DL 07/07/2019 11:52 AM CDT [facility] BUN 15 7 - 18 MG/DL 07/07/2019 11:52 AM CDT [facility] CREATININE S/P/B 0.79 0.55 - 1.02 MG/DL 07/07/2019 11:52 AM CDT [facility] SODIUM S/P/B 136 136 - 145 MMOL/L 07/07/2019 11:52 AM CDT [facility] POTASSIUM S/P/B 3.6 3.5 - 5.1 MMOL/L 07/07/2019 11:52 AM CDT [facility] CHLORIDE S/P/B 99(L) 100 - 108 MMOL/L 07/07/2019 11:52 AM CDT [facility] CO2 30.5 21 - 32 MMOL/L 07/07/2019 11:52 AM CDT [facility] CALCIUM S/P/B 8.1(L) 8.5 - 10.1 MG/DL 07/07/2019 11:52 AM CDT [facility] ANION GAP 6.5 5 - 15 MMOL/L 07/07/2019 11:52 AM CDT [facility] BUN CREATININE RATIO 19.1 6 - 07/07/2019 11:52 AM CDT [facility] EGFR NON-AFR. AMER. 79(L) >90 ML/MIN/1.7 3 M2 07/07/2019 11:52 AM CDT [facility] EGFR AFR. AMER. >90 >90 ML/MIN/1.7 3 M2 07/07/2019 11:52 AM CDT [facility] Comment: NOTE: eGFR is not calculated for patients <18 years of age. This is an estimated GFR (CKD EPI) and should not be used for calculating drug doses. 07/07/2019 10:4 8 AM CDT Lauren Bee NP LABORATORY Final Result [facility] [address] [place] [address], * (ABNORMAL) CBC W/DIFF AUTOMATED (07/07/2019 10:48 AM CDT) WBC 7.4 4.5 - 11.0 x10'3/uL 07/07/2019 12:21 PM CDT [facility] RBC 2.76(L) 4.20 - 5.40 x10'6/uL 07/07/2019 12:21 PM CDT [facility] HGB 8.0(L) 12.0 - 16.0 G/DL 07/07/2019 12:21 PM CDT [facility] HCT 24.9(L) 38.0 - 48.0 % 07/07/2019 12:21 PM CDT [facility] MCV 90.2 80.0 - 94.0 FL 07/07/2019 12:21 PM CDT [facility] MCH 29.0 27.0 - 31.0 PG 07/07/2019 12:21 PM CDT [facility] MCHC 32.1 32.0 - 36.0 G/DL 07/07/2019 12:21 PM CDT [facility] RDW 16.6(H) 11.5 - 14.5 % 07/07/2019 12:21 PM CDT [facility] PLT 221 130 - 400 x10'3/uL 07/07/2019 12:21 PM CDT [facility] MPV 10.3 9.3 - 12.2 FL 07/07/2019 12:21 PM CDT [facility] DIFFERENTIAL TYPE AUTOMATED DIFFERENTIAL 07/07/2019 12:21 PM CDT [facility] NEUTROPHILS % 72.0 % 07/07/2019 12:21 PM CDT [facility] LYMPHOCYTES % 17.0 % 07/07/2019 12:21 PM CDT [facility] MONOCYTES % 8.0 % 07/07/2019 12:21 PM CDT [facility] EOSINOPHILS 1.6 % 07/07/2019 12:21 PM CDT [facility] BASOPHILS 0.4 % 07/07/2019 12:21 PM CDT [facility] IMMATURE GRANS % 1.0 % 07/07/19 20 12:21 PM CDT [facility] ABS. NEUTROPHILS TOTAL 5.29 1.80 - 7.70 x10'3/uL 07/07/2019 12:21 PM CDT [facility] ABS. LYMPHOCYTES 1.25 1.00 - 4.80 x10'3/uL 07/07/2019 12:21 PM CDT [facility] ABS. MONOCYTES 0.59 0.24 - 0.86 x10'3/uL 07/07/2019 12:21 PM CDT [facility] ABS. EOSINOPHILS 0.12 0.04 - 0.36 x10'3/uL 07/07/2019 12:21 PM CDT [facility] ABS. BASOPHILS 0.03 0.01 - 0.08 x10'3/uL 07/07/2019 12:21 PM CDT [facility] ABS. IMMATURE GRANULOCYTES 0.07 0.00 - 0.49 x10'3/uL 07/07/2019 12:21 PM CDT [facility] 07/07/2019 10:4 8 AM CDT Lauren Bee NP LABORATORY Final Result [facility] [address] [id number], [place] [phone] * (ABNORMAL) POCT glucose (07/07/2019 5:47 AM CDT) GLUCOSE POC 271(H) 70 - 99 mg/dL 07/07/2019 2:43 PM CDT [facility] ORDERS INTERFACE 07/07/2019 5:47 AM CDT Fabiola Carter MD POCT ORDERABLES - DEVICE Final Result [facility] ORDERS INTERFACE US * (ABNORMAL) POCT glucose (07/06/2019 11:43 PM CDT) GLUCOSE POC 159(H) 70 - 99 mg/dL 07/07/2019 12:30 AM CDT [facility] ORDERS INTERFACE 07/06/2019 11:4 3 PM CDT Lauren L Rohit ROLL PLUGGER MACHINE OPERATOR POCT ORDERABLES - DEVICE Debbie l Result [facility] ORDERS INTERFACE US * POCT glucose (07/06/2019 10:10 PM CDT) GLUCOSE POC 97 70 - 99 mg/dL 07/06/2019 10:32 PM CDT [facility] ORDERS INTERFACE 07/06/2019 10:1 0 PM CDT Lauren Bee ROLL PLUGGER MACHINE OPERATOR POCT ORDERABLES - DEVICE Debbie l Result [facility] ORDERS INTERFACE US * POCT glucose (07/06/2019 9:22 PM CDT) GLUCOSE POC 70 70 - 99 mg/dL 07/06/2019 10:32 PM CDT [facility] ORDERS INTERFACE 07/06/2019 9:22 PM CDT Lauren Bee ROLL PLUGGER MACHINE OPERATOR POCT ORDERABLES - DEVICE Debbie l Result [facility] ORDERS INTERFACE US * (ABNORMAL) POCT glucose (07/06/2019 9:03 PM CDT) GLUCOSE POC 54(L) 70 - 99 mg/dL 07/06/2019 10:32 PM CDT [facility] ORDERS INTERFACE 07/06/2019 9:03 PM CDT Lauren Bee ROLL PLUGGER MACHINE OPERATOR POCT ORDERABLES - DEVICE Debbie l Result [facility] ORDERS INTERFACE US * (ABNORMAL) POCT glucose (07/06/2019 8:30 PM CDT) GLUCOSE POC 49(L) 70 - 99 mg/dL 07/06/2019 10:32 PM CDT [facility] ORDERS INTERFACE 07/06/2019 8:30 PM CDT Lauren Bee ROLL PLUGGER MACHINE OPERATOR POCT ORDERABLES - DEVICE Debbie l Result Performing Organization Address [facility]/ZIP Co de Phone Number [facility] ORDERS INTERFACE US * (ABNORMAL) POCT glucose (07/06/2019 5:23 PM CDT) GLUCOSE POC 146(H) 70 - 99 mg/dL 07/06/2019 5:26 PM CDT [facility] ORDERS INTERFACE 07/06/2019 5:23 PM CDT Lauren Bee ROLL PLUGGER MACHINE OPERATOR POCT ORDERABLES - DEVICE Debbie l Result Performing Organization Address [facility] Co de Phone Number [facility] ORDERS INTERFACE US * (ABNORMAL) BASIC METABOLIC PANEL (07/06/2019 12:08 PM CDT) GLUCOSE 251(H) 70 - 99 MG/DL 07/06/2019 1:15 PM CDT [facility] BUN 15 7 - 18 MG/DL 07/06/2019 1:15 PM CDT [facility] CREATININE S/P/B 0.84 0.55 - 1.02 MG/DL 07/06/2019 1:15 PM CDT [facility] SODIUM S/P/B 133(L) 136 - 145 MMOL/L 07/06/2019 1:15 PM CDT [facility] POTASSIUM S/P/B 3.7 3.5 - 5.1 MMOL/L 07/06/2019 1:15 PM CDT [facility] CHLORIDE S/P/B 98(L) 100 - 108 MMOL/L 07/06/2019 1:15 PM CDT [facility] CO2 28.5 21 - 32 MMOL/L 07/06/2019 1:15 PM CDT [facility] CALCIUM S/P/B 8.2(L) 8.5 - 10.1 MG/DL 07/06/2019 1:15 PM CDT [facility] ANION GAP 6.5 5 - 15 MMOL/L 07/06/2019 1:15 PM CDT [facility] BUN CREATININE RATIO 17.9 6 - 26 07/06/2019 1:15 PM CDT [facility] EGFR NON-AFR. AMER. 73(L) >90 ML/MIN/1.7 3 M2 07/06/2019 1:15 PM CDT [facility] EGFR AFR. AMER. 85(L) >90 ML/MIN/1.7 3 M2 07/06/2019 1:15 PM CDT [facility] Comment: NOTE: eGFR is not calculated for patients <18 years of age. This is an estimated GFR (CKD EPI) and should not be used for calculating drug doses. 07/06/2019 12:0 8 PM CDT us Khalif Guy MD LABORATORY Final Result [facility] [address] [place] [address], [place] [phone] * (ABNORMAL) CBC W/DIFF AUTOMATED (07/06/2019 12:08 PM CDT) WBC 7.2 4.5 - 11.0 x10'3/uL 07/06/2019 12:54 PM CDT [facility] RBC 2.93(L) 4.20 - 5.40 x10'6/uL 07/06/2019 12:54 PM CDT [facility] HGB 8.5(L) 12.0 - 16.0 G/DL 07/06/2019 12:54 PM CDT [facility] HCT 26.6(L) 38.0 - 48.0 % 07/06/2019 12:54 PM CDT [facility] MCV 90.8 80.0 - 94.0 FL 07/06/2019 12:54 PM CDT [facility] MCH 29.0 27.0 - 31.0 PG 07/06/2019 12:54 PM CDT [facility] MCHC 32.0 32.0 - 36.0 G/DL 07/06/2019 12:54 PM CDT [facility] RDW 17.0(H) 11.5 - 14.5 % 07/06/2019 12:54 PM CDT [facility] PLT 208 130 - 400 x10'3/uL 07/06/2019 12:54 PM CDT [facility] MPV 10.4 9.3 - 12.2 FL 07/06/2019 12:54 PM CDT [facility] DIFFERENTIAL TYPE AUTOMATED DIFFERENTIAL 07/06/2019 12:54 PM CDT [facility] NEUTROPHILS % 73.7 % 07/06/2019 12:54 PM CDT [facility] LYMPHOCYTES % 17.1 % 07/06/2019 12:54 PM CDT [facility] MONOCYTES % 6.5 % 07/06/2019 12:54 PM CDT [facility] EOSINOPHILS 1.9 % 07/06/2019 12:54 PM CDT [facility] BASOPHILS 0.4 % 07/06/2019 12:54 PM CDT [facility] IMMATURE GRANS % 0.4 % 07/06/19 20 12:54 PM CDT [facility] ABS. NEUTROPHILS TOTAL 5.28 1.80 - 7.70 x10'3/uL 07/06/2019 12:54 PM CDT [facility] ABS. LYMPHOCYTES 1.23 1.00 - 4.80 x10'3/uL 07/06/2019 12:54 PM CDT [facility] ABS. MONOCYTES 0.47 0.24 - 0.86 x10'3/uL 07/06/2019 12:54 PM CDT [facility] ABS. EOSINOPHILS 0.14 0.04 - 0.36 x10'3/uL 07/06/2019 12:54 PM CDT [facility] ABS. BASOPHILS 0.03 0.01 - 0.08 x10'3/uL 07/06/2019 12:54 PM CDT [facility] ABS. IMMATURE GRANULOCYTES 0.03 0.00 - 0.49 x10'3/uL 07/06/2019 12:54 PM CDT [facility] 07/06/2019 12:0 8 PM CDT Khalif Guy MD LABORATORY Final Result [facility] [address] [place] [address], [place] [phone] * (ABNORMAL) POCT glucose (07/06/2019 10:57 AM CDT) GLUCOSE POC 332(H) 70 - 99 mg/dL 07/06/2019 11:35 AM CDT [facility] ORDERS INTERFACE 07/06/2019 10:5 7 AM CDT Lauren Bee NP POCT ORDERABLES - DEVICE Debbie l Result [facility] ORDERS INTERFACE US * (ABNORMAL) POCT glucose (07/06/2019 5:44 AM CDT) GLUCOSE POC 212(H) 70 - 99 mg/dL 07/06/2019 5:52 AM CDT [facility] ORDERS INTERFACE 07/06/2019 5:44 AM CDT Lauren Bee ROLL PLUGGER MACHINE OPERATOR POCT ORDERABLES - DEVICE Debbie l Result Performing Organization Address City/[facility]/ZIP Co de Phone Number [facility] ORDERS INTERFACE US * (ABNORMAL) POCT glucose (07/05/2019 8:25 PM CDT) GLUCOSE POC 154(H) 70 - 99 mg/dL 07/06/2019 1:24 AM CDT [facility] ORDERS INTERFACE 07/05/2019 8:25 PM CDT Lauren Bee ROLL PLUGGER MACHINE OPERATOR POCT ORDERABLES - DEVICE Debbie l Result Performing Organization Address [facility] Co de Phone Number [facility] ORDERS INTERFACE US * (ABNORMAL) POCT glucose (07/05/2019 4:47 PM CDT) GLUCOSE POC 196(H) 70 - 99 mg/dL 07/05/2019 4:55 PM CDT [facility] ORDERS INTERFACE 07/05/2019 4:47 PM CDT Lauren Bee ROLL PLUGGER MACHINE OPERATOR POCT ORDERABLES - DEVICE Debbie l Result Performing Organization Address [facility] Phone Number [facility] ORDERS INTERFACE US * (ABNORMAL) POCT ACTIVATED CLOTTING TIME - ISTAT DOCKED DEVICE (07/05/2019 2:44 PM CDT) ACTIVATED CLOTTING TIME (ACT) 179(H) 74 - 125 SEC 07/05/2019 2:50 PM CDT [facility] ORDERS INTERFACE TECH CODE 121,731 07/05/2019 2:50 PM CDT [facility] ORDERS INTERFACE 07/05/2019 2:44 PM CDT Lauren Bee ROLL PLUGGER MACHINE OPERATOR POCT ORDERABLES - DEVICE Debbie l Result Performing Organization Address [facility] Co de Phone Number [facility] ORDERS INTERFACE US * (ABNORMAL) POCT ACTIVATED CLOTTING TIME - ISTAT DOCKED DEVICE (07/05/2019 2:22 PM CDT) ACTIVATED CLOTTING TIME (ACT) 235(H) 74 - 125 SEC 07/05/2019 2:29 PM CDT [facility] ORDERS INTERFACE TECH CODE 121,[id number] 07/05/2019 2:29 PM CDT [facility] ORDERS INTERFACE 07/05/2019 2:22 PM CDT Lauren Bee NP POCT ORDERABLES - DEVICE Debbie l Result Performing Organization Address [facility] de Phone Number [facility] ORDERS INTERFACE US * (ABNORMAL) POCT glucose (07/05/2019 11:35 AM CDT) GLUCOSE POC 282(H) 70 - 99 mg/dL 07/05/2019 12:27 PM CDT [facility] ORDERS INTERFACE 07/05/2019 11:3 5 AM CDT Lauren Bee NP POCT ORDERABLES - DEVICE Debbie l Result Performing Organization Address [facility] de Phone Number [facility] ORDERS INTERFACE US * (ABNORMAL) POCT glucose (07/05/2019 6:34 AM CDT) GLUCOSE POC 320(H) 70 - 99 mg/dL 07/05/2019 6:37 AM CDT [facility] ORDERS INTERFACE 07/05/2019 6:34 AM CDT Lauren Bee NP POCT ORDERABLES - DEVICE Debbie l Result Performing Organization Address [facility] de Phone Number [facility] ORDERS INTERFACE US * PTT, PARTIAL THROMBOPLASTIN TIME (07/05/2019 5:25 AM CDT) PTT 33.1 25.5 - 37.6 SEC 07/05/2019 6:50 AM CDT [facility] 07/05/2019 5:25 AM CDT Sharon Ortez ROLL PLUGGER MACHINE OPERATOR LABORATORY Final Resul t Performing Organization Address [facility]ZIP Co de Phone Number [facility] [address] [place] [address], * (ABNORMAL) PROTIME/INR, VENOUS (07/05/2019 5:25 AM CDT) PROTIME 12.5(H) 9.6 - 12.2 SEC 07/05/2019 6:50 AM CDT [facility] INR 1.1 07/05/2019 6:50 AM CDT [facility] Comment: Recommended INR Therapeutic Goals: ??2.0-3.0 Routine Therapy ??2.5-3.5 Mechanical Prosthetic Valves (High Risk) ??3.0-4.0 Acute ID (to prevent Systemic Embolism) The INR is used only for patients on stable oral anticoagulant therapy. It makes no significant contribution to the diagnosis or treatment of patients whose Protime is prolonged for other reasons. 07/05/2019 5:25 AM CDT Sharon Ortez ROLL PLUGGER MACHINE OPERATOR LABORATORY Final Resul t Performing Organization Address [facility] Co de Phone Number [facility] [address] [place] [address], * (ABNORMAL) BASIC METABOLIC PANEL (07/05/2019 5:25 AM CDT) GLUCOSE 248(H) 70 - 99 MG/DL 07/05/2019 7:16 AM CDT [facility] BUN 15 7 - 18 MG/DL 07/05/2019 7:16 AM CDT [facility] CREATININE S/P/B 0.76 0.55 - 1.02 MG/DL 07/05/2019 7:16 AM CDT [facility] SODIUM S/P/B 135(L) 136 - 145 MMOL/L 07/05/2019 7:16 AM CDT [facility] POTASSIUM S/P/B 3.7 3.5 - 5.1 MMOL/L 07/05/2019 7:16 AM CDT [facility] CHLORIDE S/P/B 98(L) 100 - 108 MMOL/L 07/05/2019 7:16 AM CDT [facility] CO2 31.4 21 - 32 MMOL/L 07/05/2019 7:16 AM CDT [facility] CALCIUM S/P/B 8.7 8.5 - 10.1 MG/DL 07/05/2019 7:16 AM CDT [facility] ANION GAP 5.6 5 - 15 MMOL/L 07/05/2019 7:16 AM CDT [facility] BUN CREATININE RATIO 19.8 6 - 26 07/05/2019 7:16 AM CDT [facility] EGFR NON-AFR. AMER. 83(L) >90 ML/MIN/1.7 3 M2 07/05/2019 7:16 AM CDT [facility] EGFR AFR. AMER. >90 >90 ML/MIN/1.7 3 M2 07/05/2019 7:16 AM CDT [facility] Comment: NOTE: eGFR is not calculated for patients <18 years of age. This is an estimated GFR (CKD EPI) and should not be used for calculating drug doses. 07/05/2019 5:25 AM CDT us Sunita Nails MD LABORATORY Final Result [facility] [address] [place] [address], [place] [phone] * (ABNORMAL) CBC W/DIFF AUTOMATED (07/05/2019 5:25 AM CDT) WBC 6.9 4.5 - 11.0 x10'3/uL 07/05/2019 6:35 AM CDT [facility] RBC 3.20(L) 4.20 - 5.40 x10'6/uL 07/05/2019 6:35 AM CDT [facility] HGB 9.3(L) 12.0 - 16.0 G/DL 07/05/2019 6:35 AM CDT [facility] HCT 28.7(L) 38.0 - 48.0 % 07/05/2019 6:35 AM CDT [facility] MCV 89.7 81.0 - 99.0 FL 07/05/2019 6:35 AM CDT [facility] MCH 29.1 27.0 - 31.0 PG 07/05/2019 6:35 AM CDT [facility] MCHC 32.4 32.0 - 36.0 G/DL 07/05/2019 6:35 AM T [facility] RDW 16.6(H) 11.5 - 14.5 % 07/05/2019 6:35 AM CDT [facility] PLT 190 130 - 400 x10'3/uL 07/05/2019 6:35 AM CDT [facility] MPV 10.8 9.3 - 12.2 FL 07/05/2019 6:35 AM CDT [facility] DIFFERENTIAL TYPE AUTOMATED DIFFERENTIAL 07/05/2019 6:35 AM CDT [facility] NEUTROPHILS % 76.1 % 07/05/2019 6:35 AM CDT [facility] LYMPHOCYTES % 13.7 % 07/05/2019 6:35 AM CDT [facility] MONOCYTES % 7.3 % 07/05/2019 6:35 AM CDT [facility] EOSINOPHILS 2.2 % 07/05/2019 6:35 AM CDT [facility] BASOPHILS 0.4 % 07/05/2019 6:35 AM CDT [facility] IMMATURE GRANS % 0.3 % 07/05/19 20 6:35 AM CDT [facility] ABS. NEUTROPHILS TOTAL 5.21 1.80 - 7.70 x10'3/uL 07/05/2019 6:35 AM CDT [facility] ABS. LYMPHOCYTES 0.94(L) 1.00 - 4.80 x10'3/uL 07/05/2019 6:35 AM CDT [facility] ABS. MONOCYTES 0.50 0.24 - 0.86 x10'3/uL 07/05/2019 6:35 AM CDT [facility] ABS. EOSINOPHILS 0.15 0.04 - 0.36 x10'3/uL 07/05/2019 6:35 AM CDT [facility] ABS. BASOPHILS 0.03 0.01 - 0.08 x10'3/uL 07/05/2019 6:35 AM CDT [facility] ABS. IMMATURE GRANULOCYTES 0.02 0.00 - 0.49 x10'3/uL 07/05/2019 6:35 AM CDT [facility] 07/05/2019 5:25 AM CDT us Sunita Nails MD LABORATORY Final Result [facility] [address] [place] [address], * (ABNORMAL) POCT glucose (07/05/2019 4:06 AM CDT) GLUCOSE POC 249(H) 70 - 99 mg/dL 07/05/2019 4:09 AM CDT [facility] ORDERS INTERFACE 07/05/2019 4:06 AM CDT Sharon Ortez ROLL PLUGGER MACHINE OPERATOR POCT ORDERABLES - DEVICE Fi nal Result Performing Organization Address [facility] de Phone Number [facility] ORDERS INTERFACE US * (ABNORMAL) POCT glucose (07/04/2019 10:23 PM CDT) GLUCOSE POC 229(H) 70 - 99 mg/dL 07/04/2019 10:25 PM CDT [facility] ORDERS INTERFACE 07/04/2019 10:2 3 PM CDT Sharon Brigidolt ROLL PLUGGER MACHINE OPERATOR POCT ORDERABLES - DEVICE Fi nal Result Performing Organization Address [facility] Phone Number [facility] ORDERS INTERFACE US * CK (CPK) (07/04/2019 10:11 PM CDT) CPK 57 21 - 215 U/L 07/04/2019 10:53 PM CDT [facility] 07/04/2019 10:1 1 PM CDT us Sunita Nails MD LABORATORY Final Result Performing Organization Address [facility] de Phone Number [facility] [address] [place] [address], [place] [phone] * (ABNORMAL) POCT glucose (07/04/2019 8:49 PM CDT) GLUCOSE POC 226(H) 70 - 99 mg/dL 07/04/2019 8:51 PM CDT [facility] ORDERS INTERFACE 07/04/2019 8:49 PM CDT us Sharon Ortez ROLL PLUGGER MACHINE OPERATOR POCT ORDERABLES - DEVICE Fi nal Result Performing Organization Address City/[facility] Co de Phone Number [facility] ORDERS INTERFACE US * (ABNORMAL) POCT glucose (07/04/2019 3:47 PM CDT) GLUCOSE POC 184(H) 70 - 99 mg/dL 07/04/2019 4:16 PM CDT [facility] ORDERS INTERFACE 07/04/2019 3:47 PM CDT us Sharon Ortez ROLL PLUGGER MACHINE OPERATOR POCT ORDERABLES - DEVICE Fi nal Result [facility] ORDERS INTERFACE US * USE TRANSESOPHAGEAL ECHO (07/04/2019 2:15 PM CDT) Anatomical Region Laterality Modality Cardiac Sleeping Car Conductor 07/04/2019 12:5 6 PM CDT Narrative 07/04/2019 4:33 PM CDT ?STAR Report Pat.Name: ??IRIS GIL ? Pat.ID: ?[id number] ? St.Date: ?? 07/04/2019 ? Exam Time: 12:56:00 PM ? Study Type:TRANSESOPHAGEAL ECHO (STAR) Height: ?62in ? Weight: ?167.65lb ?BSA: ? 1.77 m2 ?Age: ??1955,64Y ? Sex: ? FEMALE ? BP: ?147/68 ?HR: ?67 bpm ? Sonogrphr: Lacie Victor RDCS ?Pat. Stat.:Inpatient ? Reason for Study: Bacteremia ? History / Clinical: Elevated troponin Procedures: ??2D, 3 Dimensional imaging with full Doppler and color interigation, Doppler, Color Flow, Transesophageal Race: ?B ? ++++++++++++++++++++++++++++++++++++ SUMMARY: ++++++++++++++++++++++++++++++++++++ The left ventricular systolic function is normal. Estimated left ventricular ejection fraction is 55-60%. Moderate concentric left ventricular hypertrophy. Wall motion appears normal in all segments. Trace aortic regurgitation. Mild mitral regurgitation. A trace of tricuspid regurgitation. No evidence of endocarditis. ++++++++++++++++++++++++++++++++++++ FINDINGS: ++++++++++++++++++++++++++++++++++++ STAR: ?The patient was counseled and an informed consent was ?obtained. ??The patient was placed in a left lateral ?recumbent ??position and a plastic bite was inserted into the ?mouth. ??IV sedation was administered. The transesophageal ?echo ??probe was inserted into the posterior pharynx and the ?esophagus ??was then intubated without difficulty. Multiple ?views ??were then obtained from the upper, mid, and lower ?esophagus ??and the gastric fundus. The scope was rotated 180 ?degrees ??and the aorta was visualized. The scope was ?withdrawn ??under continuous suction. The patient tolerated ?the ??procedure well without any apparent complications. LV: ? The left ventricular systolic function is normal. Estimated ?left ??ventricular ejection fraction is 55-60%. Moderate ?concentric ??left ventricular hypertrophy. WM: ? Wall motion appears normal in all segments. RV: ? The right ventricle size is normal. The right ventricular ?function ??is normal. LA: ? Left atrial appendage is normal. Left atrial appendage ?velocity ??is normal. The left atrium was not well visualized ?in ??all views. RA: ? The right atrial size is normal. IAS: ?Atrial septum appears intact. JAKOB: ? Trivial pericardial effusion, without tamponade physiology. AO: ? The aorta is atherosclerotic. Other: ?No evidence of endocarditis. AV: ? The aortic valve is trileaflet. No evidence of aortic valve ?stenosis. ??Trace aortic regurgitation. No aortic valve ?vegetation. MV: ? Structurally normal mitral valve. Mild mitral regurgitation. ?No ??evidence of mitral stenosis. No mitral valve vegetation. PV: ? No evidence of pulmonic valve stenosis. No evidence of ?pulmonic ??regurgitation. Pulmonic valve not well visualized. TV: ? A trace of tricuspid regurgitation. No evidence of tricuspid ?valve ??stenosis. No tricuspid valve vegetation. ++++++++++++++++++++++++++++++++++++ STAR: ++++++++++++++++++++++++++++++++++++ Pre STAR ?BP ?? HR ? Post STAR ? BP ?? HR ?163/70 67 ? 100/48 62 Meds: ?Propofol or Diprivan administered by Anesthesia Staff, Propofol 130, Lidocain 130 Complications: None ? Condition: Good ? Signed 07/04/2019 04:33 PM Sunita Nails M.D. Procedure Note Sunita Nails MD - 07/04/2019 STAR Report Pat.Name: LOUISE JARADJESSICA Ribeiro.ID: [id number] St.Date: 07/04/2019 Exam Time: 12:56:00 PM Study Type:TRANSESOPHAGEAL ECHO (STAR) Height: 62in Weight: 167.65lb BSA: 1.77 m2 Age: 11 1955,64Y Sex: FEMALE BP: 147/68 HR: 67 bpm Sonogrphr: Lacie Victor [facility] Pat. Stat.:Inpatient Reason for Study: Bacteremia History [...] of tricuspid regurgitation. No evidence of endocarditis. ++++++++++++++++++++++++++++++++++++ FINDINGS: ++++++++++++++++++++++++++++++++++++ STAR: The patient was counseled [...] Signed 07/04/2019 04:33 PM Sunita Nails M.D. Sharon Ortez NP ECHO Final Resul t * (ABNORMAL) POCT glucose (07/04/2019 11:46 AM CDT) [facility] GLUCOSE POC 150(H) 70 - 99 mg/dL 07/04/2019 11:51 AM CDT [facility] ORDERS INTERFACE 07/04/2019 11:4 6 AM CDT Sharon Ortez NP POCT ORDERABLES - DEVICE Fi nal Result [facility] ORDERS INTERFACE US * (ABNORMAL) COMPREHENSIVE METABOLIC PANEL (07/04/2019 6:37 AM CDT) [facility] GLUCOSE 137(H) 70 - 99 MG/DL 07/04/2019 7:56 AM CDT [facility] BUN 13 7 - 18 MG/DL 07/04/2019 7:56 AM CDT [facility] CREATININE S/P/B 0.85 0.55 - 1.02 MG/DL 07/04/2019 7:56 AM CDT [facility] SODIUM S/P/B 136 136 - 145 MMOL/L 07/04/2019 7:56 AM CDT [facility] POTASSIUM S/P/B 3.7 3.5 - 5.1 MMOL/L 07/04/2019 7:56 AM CDT [facility] CHLORIDE S/P/B 100 100 - 108 MMOL/L 07/04/2019 7:56 AM CDT [facility] CO2 31.8 21 - 32 MMOL/L 07/04/2019 7:56 AM CDT [facility] CALCIUM S/P/B 8.9 8.5 - 10.1 MG/DL 07/04/2019 7:56 AM CDT [facility] BILIRUBIN TOTAL S/P/B 0.5 0.2 - 1.2 MG/DL 07/04/2019 7:56 AM CDT [facility] Comment: THIS ASSAY IS NOT RECOMMENDED FOR PATIENTS UNDERGOING TREATMENT WITH ELTROMBOPAG DUE TO THE POTENTIAL FOR FALSELY ELEVATED RESULTS. TOTAL PROTEIN S/P/B 7.0 6.4 - 8.2 G/DL 07/04/2019 7:56 AM CDT [facility] ALBUMIN S/P/B 2.2(L) 3.4 - 5.0 G/DL 07/04/2019 7:56 AM CDT [facility] AST 24 15 - 37 U/L 07/04/2019 7:56 AM CDT [facility] ALT 22 14 - 55 U/L 07/04/2019 7:56 AM CDT [facility] ALKALINE PHOSPHATASE S/P/B 40(L) 50 - 136 U/L 07/04/2019 7:56 AM CDT [facility] ANION GAP 4.2(L) 5 - 15 MMOL/L 07/04/2019 7:56 AM CDT [facility] BUN CREATININE RATIO 15.2 6 - 26 07/04/2019 7:56 AM CDT [facility] A/G RATIO 0.5(L) 1.0 - 2.0 RATIO 07/04/2019 7:56 AM CDT [facility] EGFR NON-AFR. AMER. 72(L) >90 ML/MIN/1.7 3 M2 07/04/2019 7:56 AM CDT [facility] EGFR AFR. AMER. 84(L) >90 ML/MIN/1.7 3 M2 07/04/2019 7:56 AM CDT [facility] Comment: NOTE: eGFR is not calculated for patients <18 years of age. This is an estimated GFR (CKD EPI) and should not be used for calculating drug doses. 07/04/2019 6:37 AM CDT us Sharon Ortez NP LABORATORY Final Resul t [facility] [address] [place] [address], [place] [phone] * (ABNORMAL) CBC W/DIFF AUTOMATED (07/04/2019 6:37 AM CDT) WBC 5.8 4.5 - 11.0 x10'3/uL 07/04/2019 7:17 AM CDT [facility] RBC 3.15(L) 4.20 - 5.40 x10'6/uL 07/04/2019 7:17 AM CDT [facility] HGB 9.0(L) 12.0 - 16.0 G/DL 07/04/2019 7:17 AM CDT [facility] HCT 27.8(L) 38.0 - 48.0 % 07/04/2019 7:17 AM CDT [facility] MCV 88.3 81.0 - 99.0 FL 07/04/2019 7:17 AM CDT [facility] MCH 28.6 27.0 - 31.0 PG 07/04/2019 7:17 AM CDT [facility] MCHC 32.4 32.0 - 36.0 G/DL 07/04/2019 7:17 AM CDT [facility] RDW 17.0(H) 11.5 - 14.5 % 07/04/2019 7:17 AM CDT [facility] PLT 161 130 - 400 x10'3/uL 07/04/2019 7:17 AM CDT [facility] MPV 10.4 9.3 - 12.2 FL 07/04/2019 7:17 AM CDT [facility] DIFFERENTIAL TYPE AUTOMATED DIFFERENTIAL 07/04/2019 7:17 AM CDT [facility] NEUTROPHILS % 67.5 % 07/04/2019 7:17 AM CDT [facility] LYMPHOCYTES % 19.6 % 07/04/2019 7:17 AM CDT [facility] MONOCYTES % 9.7 % 07/04/2019 7:17 AM CDT [facility] EOSINOPHILS 2.4 % 07/04/2019 7:17 AM CDT [facility] BASOPHILS 0.3 % 07/04/2019 7:17 AM CDT [facility] IMMATURE GRANS % 0.5 % 07/04/19 20 7:17 AM CDT [facility] ABS. NEUTROPHILS TOTAL 3.89 1.80 - 7.70 x10'3/uL 07/04/2019 7:17 AM CDT [facility] ABS. LYMPHOCYTES 1.13 1.00 - 4.80 x10'3/uL 07/04/2019 7:17 AM CDT [facility] ABS. MONOCYTES 0.56 0.24 - 0.86 x10'3/uL 07/04/2019 7:17 AM CDT [facility] ABS. EOSINOPHILS 0.14 0.04 - 0.36 x10'3/uL 07/04/2019 7:17 AM CDT [facility] ABS. BASOPHILS 0.02 0.01 - 0.08 x10'3/uL 07/04/2019 7:17 AM CDT [facility] ABS. IMMATURE GRANULOCYTES 0.03 0.00 - 0.49 x10'3/uL 07/04/2019 7:17 AM CDT [facility] 07/04/2019 6:37 AM CDT [place] Penaloza MD LABORATORY Final Result [facility] [address] [place] [id number], * (ABNORMAL) POCT glucose (07/04/2019 6:09 AM CDT) GLUCOSE POC 161(H) 70 - 99 mg/dL 07/04/2019 6:21 AM CDT [facility] ORDERS INTERFACE 07/04/2019 6:09 AM CDT us Sharon Ortez NP POCT ORDERABLES - DEVICE Fi nal Result [facility] ORDERS INTERFACE US * (ABNORMAL) POCT glucose (07/03/2019 9:00 PM CDT) GLUCOSE POC 276(H) 70 - 99 mg/dL 07/04/2019 11:51 AM CDT [facility] ORDERS INTERFACE 07/03/2019 9:00 PM CDT us Sharon Ortez ROLL PLUGGER MACHINE OPERATOR POCT ORDERABLES - DEVICE Fi nal Result Performing Organization Address City/[facility] Co de Phone Number [facility] ORDERS INTERFACE US * (ABNORMAL) POCT glucose (07/03/2019 6:04 PM CDT) GLUCOSE POC 307(H) 70 - 99 mg/dL 07/03/2019 6:06 PM CDT [facility] ORDERS INTERFACE 07/03/2019 6:04 PM CDT us Sharon Ortez ROLL PLUGGER MACHINE OPERATOR POCT ORDERABLES - DEVICE Fi nal Result Performing Organization Address [facility] Phone Number [facility] ORDERS INTERFACE US * Transfuse RBC (07/03/2019 5:03 PM CDT) us Sharon Ortez NP NURSING TREATMENT ORDERABLE S - BLOOD ADMIN Final Result * Transfuse RBC (07/03/2019 5:03 PM CDT) Sharon Ortez ROLL PLUGGER MACHINE OPERATOR NURSING TREATMENT ORDERABLE S - BLOOD ADMIN Final Result * CULTURE, BACTERIA, BLOOD (07/03/2019 1:49 PM CDT) SPEC DESCRIPTION BLOOD-PEDIA TRIC VOLUME 07/03/2019 12:43 PM CDT [facility] SPECIAL REQUESTS NO SPECIAL REQUEST 07/03/2019 12:43 PM CDT [facility] CULTURE RESULT NO GROWTH 5 DAYS 07/08/2019 11:57 AM CDT [facility] BLOOD SPECIMEN OBTAINED FOR BLOOD CULTURE / Unknown 07/03/2019 1:49 PM CDT 07/03/2019 1:55 PM CDT us uBd Weir MD MICROBIOLOGY - GENERAL ORDERABLE S Final Result Performing Organization Address City/[facility]/ZIP Co de Phone Number [facility] [address] [place] [address], [place] [phone] * CULTURE, BACTERIA, BLOOD (07/03/2019 1:49 PM CDT) SPEC DESCRIPTION BLOOD-PEDIA TRIC VOLUME 07/03/2019 12:43 PM CDT [facility] SPECIAL REQUESTS NO SPECIAL REQUEST 07/03/2019 12:43 PM CDT [facility] CULTURE RESULT NO GROWTH 5 DAYS 07/08/2019 11:57 AM CDT [facility] BLOOD SPECIMEN OBTAINED FOR BLOOD CULTURE / Unknown 07/03/2019 1:49 PM CDT 07/03/2019 1:55 PM CDT Bud Weir MD MICROBIOLOGY - GENERAL ORDERABLE S Final Result [facility] [address] [place] [address], [place] [phone] * TYPE & SCREEN (07/03/2019 12:10 PM CDT) UNITS ORDERED 1 07/03/2019 1:10 PM CDT [facility] ABO/RH O POSITIVE 07/03/2019 1:10 PM CDT [facility] ANTIBODY SCREEN NEGATIVE 0 1:10 PM CDT [facility] SAMPLE EXPIRATION 07/06/2019,2359 07/03/2019 1:10 PM CDT [facility] BLOOD UNIT NUMBER [id number] 07/03/2019 1:10 PM CDT [facility] PRODUCT: PC LEUKOPOOR 07/03/2019 1:10 PM CDT [facility] UNIT DIVISION 00 07/03/2019 1:10 PM CDT [facility] BLOOD UNIT STATUS TRANSFUSED,FINAL 07/04/2019 10:16 AM CDT [facility] ISSUE DATE/TIME [id number] 020 10:16 AM CDT [facility] PRODUCT CODE [id number] 07/04/2019 10:16 AM CDT [facility] ABO/RH Unit O POS 07/04/2019 10:16 AM CDT [facility] ABO/RH UNIT ISBT CODE 5100 07/04/2019 10:16 AM CDT [facility] BLOOD UNIT EXPIRATION DATE [id number] 07/04/2019 10:16 AM CDT [facility] TRANSFUSION STATUS OK TO TRANSFUSE 07/03/2019 1:10 PM CDT [facility] CROSSMATCH COMPATIBLE-EXM 07/03/2019 1:10 PM CDT [facility] 07/03/2019 12:1 0 PM CDT Sharon Ortez NP BLOOD BANK TEST ORDERABLES Final Result [facility] [address] [place] [address], [place] [phone] * (ABNORMAL) BASIC METABOLIC PANEL (07/03/2019 7:51 AM CDT) [facility] GLUCOSE 172(H) 70 - 99 MG/DL 07/03/2019 12:13 PM CDT [facility] BUN 15 7 - 18 MG/DL 07/03/2019 12:13 PM CDT [facility] CREATININE S/P/B 0.91 0.55 - 1.02 MG/DL 07/03/2019 12:13 PM CDT [facility] SODIUM S/P/B 133(L) 136 - 145 MMOL/L 07/03/2019 12:13 PM CDT [facility] POTASSIUM S/P/B 3.6 3.5 - 5.1 MMOL/L 07/03/2019 12:13 PM CDT [facility] CHLORIDE S/P/B 99(L) 100 - 108 MMOL/L 07/03/2019 12:13 PM CDT [facility] CO2 31.1 21 - 32 MMOL/L 07/03/2019 12:13 PM CDT [facility] CALCIUM S/P/B 8.7 8.5 - 10.1 MG/DL 07/03/2019 12:13 PM CDT [facility] ANION GAP 2.9(L) 5 - 15 MMOL/L 07/03/2019 12:13 PM CDT [facility] BUN CREATININE RATIO 16.4 6 - 26 07/03/2019 12:13 PM CDT [facility] EGFR NON-AFR. AMER. 67(L) >90 ML/MIN/1.7 3 M2 07/03/2019 12:13 PM CDT [facility] EGFR AFR. AMER. 77(L) >90 ML/MIN/1.7 3 M2 07/03/2019 12:13 PM CDT [facility] Comment: NOTE: eGFR is not calculated for patients <18 years of age. This is an estimated GFR (CKD EPI) and should not be used for calculating drug doses. 07/03/2019 7:51 AM CDT us Loraine Penaloza MD LABORATORY Final Result [facility] [address] [place] [address], [place] [phone] * RETICULOCYTE CT, AUTO (07/03/2019 7:51 AM CDT) RETICULOCYTE COUNT 1.8 0.8 - 2.1 % 07/03/2019 8:58 AM CDT [facility] ABSOLUTE RETICULOCYTE 0.03 0.02 - 0.10 x10'6/uL 07/03/2019 8:58 AM CDT [facility] IMMATURE RETIC FRACTION 12.5 3.0 - 15.9 % 07/03/2019 8:58 AM CDT [facility] RETIC HGB 33.8 28.0 - 35.0 PG 07/03/2019 8:58 AM CDT [facility] 07/03/2019 7:51 AM CDT [facility] Final Resul t Performing Organization Address City/[facility]/ZIP Co de Phone Number [facility] [address] [place] [id number], * (ABNORMAL) FERRITIN (07/03/2019 7:51 AM CDT) FERRITIN 517.7(H) 8.0 - 388.0 NG/ML 07/03/2019 11:58 AM CDT [facility] 07/03/2019 7:51 AM CDT [facility] LABORATORY Final Resul t [facility] [address] [place] [address], [place] [phone] * (ABNORMAL) IRON SAT PANEL (IRON,IBC,%SAT) (07/03/2019 7:51 AM CDT) IRON 57 50.0 - 170.0 MCG/DL 07/03/2019 12:13 PM CDT [facility] IRON BINDING CAPACITY 322 250 - 450 MCG/DL 07/03/2019 12:13 PM CDT [facility] IRON SATURATION 18(L) 20 - 55 % 0 12:13 PM CDT [facility] 07/03/2019 7:51 AM CDT Sharon Ortez NP LABORATORY Final Resul t [facility] [address] [place] [address], [place] [phone] * (ABNORMAL) VITAMIN B-12 (07/03/2019 7:51 AM CDT) VITAMIN B12 S/P/B 1,534(H) 254 - 1,320 PG/ML 07/03/2019 11:58 AM CDT [facility] 07/03/2019 7:51 AM CDT Sharon Ortez NP LABORATORY Final Resul t Performing Organization Address City/[facility]/ZIP Co de Phone Number [facility] [address] [place] [address], [place] [phone] * FOLIC ACID SERUM (07/03/2019 7:51 AM CDT) FOLATE 5.6 3.1 - 17.5 NG/ML 07/03/2019 11:58 AM CDT [facility] 07/03/2019 7:51 AM CDT Sharon Ortez NP LABORATORY Final Resul t [facility] [address] [place] [address], [place] [phone] * (ABNORMAL) CBC W/DIFF AUTOMATED (07/03/2019 7:51 AM CDT) [facility] WBC 7.2 4.5 - 11.0 x10'3/uL 07/03/2019 8:58 AM CDT [facility] RBC 1.91(L) 4.20 - 5.40 x10'6/uL 07/03/2019 8:58 AM CDT [facility] HGB 5.6(LL) 12.0 - 16.0 G/DL 07/03/2019 8:58 AM CDT [facility] Comment: This result has been called to ROLF PATTERNOSTER by KAYLA YEBOAH on 07 03 2019 at 0858, and has been read back. HCT 17.7(LL) 38.0 - 48.0 % 07/03/2019 8:58 AM CDT [facility] Comment: This result has been called to ROLF PATTERNOSTER by KAYLA YEBOAH on 07 03 2019 at 0858, and has been read back. MCV 92.7 80.0 - 94.0 FL 07/03/2019 8:58 AM CDT [facility] MCH 29.3 27.0 - 31.0 PG 07/03/2019 8:58 AM CDT [facility] MCHC 31.6(L) 32.0 - 36.0 G/DL 07/03/2019 8:58 AM CDT [facility] RDW 15.2(H) 11.5 - 14.5 % 07/03/2019 8:58 AM CDT [facility] PLT 186 130 - 400 x10'3/uL 07/03/2019 8:58 AM CDT [facility] MPV 10.4 9.3 - 12.2 FL 07/03/2019 8:58 AM CDT [facility] DIFFERENTIAL TYPE AUTOMATED DIFFERENTIAL 07/03/2019 8:58 AM CDT [facility] NEUTROPHILS % 70.5 % 07/03/2019 8:58 AM CDT [facility] LYMPHOCYTES % 17.7 % 07/03/2019 8:58 AM CDT [facility] MONOCYTES % 8.6 % 07/03/2019 8:58 AM CDT [facility] EOSINOPHILS 2.2 % 07/03/2019 8:58 AM CDT [facility] BASOPHILS 0.3 % 07/03/2019 8:58 AM CDT [facility] IMMATURE GRANS % 0.7 % 07/03/19 8:58 AM CDT [facility] ABS. NEUTROPHILS TOTAL 5.11 1.80 - 7.70 x10'3/uL 07/03/2019 8:58 AM CDT [facility] ABS. LYMPHOCYTES 1.28 1.00 - 4.80 x10'3/uL 07/03/2019 8:58 AM CDT [facility] ABS. MONOCYTES 0.62 0.24 - 0.86 x10'3/uL 07/03/2019 8:58 AM CDT [facility] ABS. EOSINOPHILS 0.16 0.04 - 0.36 x10'3/uL 07/03/2019 8:58 AM CDT [facility] ABS. BASOPHILS 0.02 0.01 - 0.08 x10'3/uL 07/03/2019 8:58 AM CDT [facility] ABS. IMMATURE GRANULOCYTES 0.05 0.00 - 0.49 x10'3/uL 07/03/2019 8:58 AM CDT [facility] 07/03/2019 7:51 AM CDT Loraine Penaloza MD LABORATORY Final Result [facility] [address] [place] [address], [place] [phone] * (ABNORMAL) POCT glucose (07/03/2019 6:17 AM CDT) GLUCOSE POC 199(H) 70 - 99 mg/dL 07/03/2019 6:31 AM CDT [facility] ORDERS INTERFACE 07/03/2019 6:17 AM CDT us Sharon Santiagot ROLL PLUGGER MACHINE OPERATOR POCT ORDERABLES - DEVICE Fi nal Result Performing Organization Address [facility] Co de Phone Number [facility] ORDERS INTERFACE US * (ABNORMAL) POCT glucose (07/02/2019 9:02 PM CDT) GLUCOSE POC 402(HH) 70 - 99 mg/dL 07/02/2019 9:21 PM CDT [facility] ORDERS INTERFACE 07/02/2019 9:02 PM CDT Sharon Galloolt ROLL PLUGGER MACHINE OPERATOR POCT ORDERABLES - DEVICE Fi nal Result Performing Organization Address [facility] Co de Phone Number [facility] ORDERS INTERFACE US * (ABNORMAL) POCT glucose (07/02/2019 3:59 PM CDT) GLUCOSE POC 161(H) 70 - 99 mg/dL 07/02/2019 4:50 PM CDT [facility] ORDERS INTERFACE 07/02/2019 3:59 PM CDT us Sharon Raineyolt ROLL PLUGGER MACHINE OPERATOR POCT ORDERABLES - DEVICE Fi nal Result Performing Organization Address City/[facility]/ZIP Co de Phone Number [facility] ORDERS INTERFACE US * MRI ANKLE RT WO CON (07/02/2019 3:28 PM CDT) Anatomical Region Laterality Modality Ankle Magnetic Resonan ce 07/02/2019 3:47 PM CDT Impressions 07/02/2019 3:52 PM CDT IMPRESSION: 1) Soft tissue ulceration involving the right heel with no evidence of soft tissue abscess. 2. No evidence of osteomyelitis. 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 Procedure Note Kirby Conway MD - 07/02/2019 Examination: MRI ANKLE RT WO CON Exam time: 07/02/2019 2:56 PM Clinical history: Chronic soft tissue ulceration and pain right heel Comparison: None Technique: T1-weighted images were obtained axial, sagittal and coronalto the tibiotalar joint. Sagittal, coronal and axial STIR images were also obtained. No intravenous contrast. Findings: The images demonstrate normal marrow signal in the distaltibia and tibial plafond. Marrow signal in the distal tibia is normal. Thetalus and talar dome are unremarkable. Tiny amount of nonspecific fluid in tibiotalar and subtalar joint spaces. There is focal skin thickening and mild ulceration posterior to the posterior calcaneal tuberosity. There is no evidence of abscess. Thereis no evidence of calcaneal marrow signal abnormality to suggest osteomyelitis. Distal Achilles tendon appears intact. Tiny amount of nonspecific fluid in the retrocalcaneal bursa. Plantar calcaneal enthesophyte with normal appearance of the plantar fascia. Minor chronic degenerative change tibiotalar and calcaneocuboid articulations. Thereis some mild diffuse nonspecific edema involving the intrinsic musculatureof the foot likely related to chronic diabetic myopathy. IMPRESSION: 1) Soft tissue ulceration involving the right heel with no evidence ofsoft tissue abscess. 2. No evidence of osteomyelitis. us Loraine Penaloza MD MRI Final Result * (ABNORMAL) BASIC METABOLIC PANEL (07/02/2019 11:28 AM CDT) GLUCOSE 290(H) 70 - 99 MG/DL 07/02/2019 12:32 PM CDT [facility] BUN 16 7 - 18 MG/DL 07/02/2019 12:32 PM CDT [facility] CREATININE S/P/B 0.87 0.55 - 1.02 MG/DL 07/02/2019 12:32 PM CDT [facility] SODIUM S/P/B 134(L) 136 - 145 MMOL/L 07/02/2019 12:32 PM CDT [facility] POTASSIUM S/P/B 3.6 3.5 - 5.1 MMOL/L 07/02/2019 12:32 PM CDT [facility] CHLORIDE S/P/B 97(L) 100 - 108 MMOL/L 07/02/2019 12:32 PM CDT [facility] CO2 32.8(H) 21 - 32 MMOL/L 07/02/2019 12:32 PM CDT [facility] CALCIUM S/P/B 8.7 8.5 - 10.1 MG/DL 07/02/2019 12:32 PM CDT [facility] ANION GAP 4.2(L) 5 - 15 MMOL/L 07/02/2019 12:32 PM CDT [facility] BUN CREATININE RATIO 18.4 6 - 26 07/02/2019 12:32 PM CDT [facility] EGFR NON-AFR. AMER. 70(L) >90 ML/MIN/1.7 3 M2 07/02/2019 12:32 PM CDT [facility] EGFR AFR. AMER. 82(L) >90 ML/MIN/1.7 3 M2 07/02/2019 12:32 PM CDT [facility] Comment: NOTE: eGFR is not calculated for patients <18 years of age. This is an estimated GFR (CKD EPI) and should not be used for calculating drug doses. 07/02/2019 11:2 8 AM CDT Loraine Penaloza MD LABORATORY Final Result Performing Organization Address City/[facility]/ZIP Co de Phone Number [facility] [address] [place] [address], * VANCOMYCIN TROUGH (07/02/2019 11:28 AM CDT) [facility] VANCOMYCIN TROUGH 14.6 10.0 - 20.0 MCG/ML 07/02/2019 12:07 PM CDT [facility] Comment: ? THERAPEUTIC: 10.0-20.0 ? TOXIC: >25.0 VANCOMYCIN UNKNOWN LAST DOSE 07/02/2019 2:01 PM CDT [facility] 07/02/2019 11:2 8 AM CDT Loraine Penaloza MD LABORATORY Final Result [facility] [address] [place] [address], [place] [phone] * (ABNORMAL) THYROXINE, FREE (FT4) (07/02/2019 11:28 AM CDT) [facility] FREE T4 0.45(L) 0.76 - 1.46 NG/DL 07/02/2019 12:32 PM CDT [facility] 07/02/2019 11:2 8 AM CDT Loraine Penaloza MD LABORATORY Final Result [facility] [address] [place] [address], [place] [phone] * (ABNORMAL) CBC W/DIFF AUTOMATED (07/02/2019 11:28 AM CDT) [facility] WBC 7.2 4.5 - 11.0 x10'3/uL 07/02/2019 11:51 AM CDT [facility] RBC 2.69(L) 4.20 - 5.40 x10'6/uL 07/02/2019 11:51 AM CDT [facility] HGB 7.9(L) 12.0 - 16.0 G/DL 07/02/2019 11:51 AM CDT [facility] HCT 24.7(L) 38.0 - 48.0 % 07/02/2019 11:51 AM CDT [facility] MCV 91.8 80.0 - 94.0 FL 07/02/2019 11:51 AM CDT [facility] MCH 29.4 27.0 - 31.0 PG 07/02/2019 11:51 AM CDT [facility] MCHC 32.0 32.0 - 36.0 G/DL 07/02/2019 11:51 AM CDT [facility] RDW 15.5(H) 11.5 - 14.5 % 07/02/2019 11:51 AM CDT [facility] PLT 168 130 - 400 x10'3/uL 07/02/2019 11:51 AM CDT [facility] MPV 10.4 9.3 - 12.2 FL 07/02/2019 11:51 AM CDT [facility] DIFFERENTIAL TYPE AUTOMATED DIFFERENTIAL 07/02/2019 11:51 AM CDT [facility] NEUTROPHILS % 78.9 % 07/02/2019 11:51 AM CDT [facility] LYMPHOCYTES % 11.7 % 07/02/2019 11:51 AM T [facility] MONOCYTES % 6.4 % 07/02/2019 11:51 AM T [facility] EOSINOPHILS 2.1 % 07/02/2019 11:51 AM CDT [facility] BASOPHILS 0.3 % 07/02/2019 11:51 AM CDT [facility] IMMATURE GRANS % 0.6 % 07/02/19 20 11:51 AM CDT [facility] ABS. NEUTROPHILS TOTAL 5.68 1.80 - 7.70 x10'3/uL 07/02/2019 11:51 AM CDT [facility] ABS. LYMPHOCYTES 0.84(L) 1.00 - 4.80 x10'3/uL 07/02/2019 11:51 AM CDT [facility] ABS. MONOCYTES 0.46 0.24 - 0.86 x10'3/uL 07/02/2019 11:51 AM T [facility] ABS. EOSINOPHILS 0.15 0.04 - 0.36 x10'3/uL 07/02/2019 11:51 AM CDT [facility] ABS. BASOPHILS 0.02 0.01 - 0.08 x10'3/uL 07/02/2019 11:51 AM CDT [facility] ABS. IMMATURE GRANULOCYTES 0.04 0.00 - 0.49 x10'3/uL 07/02/2019 11:51 AM CDT [facility] 07/02/2019 11:2 8 AM CDT Loraine Penaloza MD LABORATORY Final Result Performing Organization Address [facility] Co de Phone Number [facility] [address] [place] [address], * CULTURE, BACTERIA, BLOOD (07/02/2019 11:28 AM CDT) SPEC DESCRIPTION BLOOD 07/02/2019 12:30 AM CDT [facility] SPECIAL REQUESTS NO SPECIAL REQUEST 07/02/2019 12:30 AM CDT [facility] CULTURE RESULT NO GROWTH 5 DAYS 07/07/2019 1:51 PM CDT [facility] BLOOD SPECIMEN OBTAINED FOR BLOOD CULTURE / Unknown 07/02/2019 11:28 AM CDT 07/02/2019 11:29 AM CDT Loraine Penaloza MD MICROBIOLOGY - GENERAL ORDERABLES Final Result [facility] [address] [place] [address], [place] [phone] * (ABNORMAL) CULTURE, BACTERIA, BLOOD (07/02/2019 11:28 AM CDT) SPEC DESCRIPTION BLOOD 07/02/2019 12:30 AM CDT [facility] SPECIAL REQUESTS NO SPECIAL REQUEST 07/02/2019 12:30 AM CDT [facility] GRAM STAIN RESULT GRAM POSITIVE COCCI RESEMBLING STREPTOCOCCUS SPECIES 07/03/2019 8:20 AM CDT [facility] GRAM STAIN RESULT GS CALLED TO AND REPEATED BACK BY ROLF YEE RN TEL 07/03/19 0820 LAE. 07/03/2019 8:20 AM CDT [facility] CULTURE RESULT VANCOMYCIN RESISTANT ENTEROCOCCUS FAECALIS DETECTED BY VERIGENE NUCLEIC ACID TEST FOLLOW ISOLATION PROTOCOL. (AA) 07/05/2019 8:14 AM CDT [facility] CULTURE RESULT VERIGENE CALLED TO AND [facility]EAD [facility] 1135 LAE. 07/05/2019 8:14 AM CDT [facility] CULTURE RESULT GROWTH OF VANCOMYCIN RESISTANT ENTEROCOCCUS FAECALIS CALLED TO AND REPEATED BACK BY KHADAR HUMPHREYS AT 0812 CLW 07/05/2019 FOLLOW ISOLATION PROTOCOL. (AA) 07/05/2019 8:14 AM CDT [facility] BLOOD SPECIMEN OBTAINED FOR BLOOD CULTURE / Unknown 07/02/2019 11:28 AM CDT 07/02/2019 11:29 AM CDT Narrative Organism Antibiotic Method Susceptibility Vancomycin resistant enteroc occus faecalis AMPICILLIN MICHAEL (VITEK) <=2: Sensitive Vancomycin resistant enteroc occus faecalis PENICILLIN G MICHAEL (VITEK) 8: Sensitive Vancomycin resistant enteroc occus faecalis GENT. SYNERGY SCREEN MICHAEL (VITEK) Resistant Vancomycin resistant enteroc occus faecalis LINEZOLID MICHAEL (VITEK) 1: Sensitive Vancomycin resistant enteroc occus faecalis VANCOMYCIN MICHAEL (VITEK) >=32: Resistant us Loraine Penaloza MD MICROBIOLOGY - GENERAL ORDERABLES Final Result [facility] [address] [place] [address], * (ABNORMAL) POCT glucose (07/02/2019 10:51 AM CDT) [facility] Signature GLUCOSE POC 336(H) 70 - 99 mg/dL 07/02/2019 12:01 PM CDT [facility] ORDERS INTERFACE 07/02/2019 10:5 1 AM CDT Sharon Pérez ROLL PLUGGER MACHINE OPERATOR POCT ORDERABLES - DEVICE Fi nal Result Performing Organization Address [facility] de Phone Number [facility] ORDERS INTERFACE US * (ABNORMAL) POCT glucose (07/02/2019 6:01 AM CDT) GLUCOSE POC 267(H) 70 - 99 mg/dL 07/02/2019 6:03 AM CDT [facility] ORDERS INTERFACE 07/02/2019 6:01 AM CDT Sharon Pérez ROLL PLUGGER MACHINE OPERATOR POCT ORDERABLES - DEVICE Fi nal Result Performing Organization Address [facility] de Phone Number [facility] ORDERS INTERFACE US * (ABNORMAL) VANCOMYCIN TROUGH (07/01/2019 10:00 PM CDT) VANCOMYCIN TROUGH 32.9(HH) 10.0 - 20.0 MCG/ML 07/01/2019 11:50 PM CDT [facility] Comment: SGG CALLED CRITICAL RESULTS AT [id number] TO AND READ BACK BY ANNAMARIA HAGEN ? THERAPEUTIC: 10.0-20.0 ? TOXIC: >25.0 VANCOMYCIN UNKNOWN LAST DOSE 07/02/2019 1:59 PM CDT [facility] 07/01/2019 10:0 0 PM CDT Savanna Ardon MD LABORATORY Final Re sult Performing Organization Address [facility] de Phone Number [facility] [address] [place] [address], [place] [phone] * (ABNORMAL) POCT glucose (07/01/2019 9:44 PM CDT) GLUCOSE POC 184(H) 70 - 99 mg/dL 07/01/2019 10:54 PM CDT [facility] ORDERS INTERFACE 07/01/2019 9:44 PM CDT us Loraine Penaloza MD POCT ORDERABLES - GILMA CE Final Result Performing Organization Address [facility] de Phone Number [facility] ORDERS INTERFACE US * POCT glucose (07/01/2019 4:30 PM CDT) GLUCOSE POC 70 70 - 99 mg/dL 07/01/2019 4:33 PM CDT [facility] ORDERS INTERFACE 07/01/2019 4:30 PM CDT us Loraine Penaloza MD POCT ORDERABLES - GILMA CE Final Result Performing Organization Address [facility] [facility] de Phone Number [facility] ORDERS INTERFACE US * (ABNORMAL) POCT glucose (07/01/2019 3:40 PM CDT) GLUCOSE POC 48(L) 70 - 99 mg/dL 07/01/2019 4:52 PM CDT [facility] ORDERS INTERFACE 07/01/2019 3:40 PM CDT us Loraine Penaloza MD POCT ORDERABLES - GILMA CE Final Result Performing Organization Address [facility] de Phone Number [facility] ORDERS INTERFACE US * (ABNORMAL) POCT glucose (07/01/2019 11:13 AM CDT) GLUCOSE POC 275(H) 70 - 99 mg/dL 07/01/2019 11:23 AM CDT [facility] ORDERS INTERFACE 07/01/2019 11:1 3 AM CDT us Loraine Penaloza MD POCT ORDERABLES - GILMA CE Final Result Performing Organization Address [facility] Co de Phone Number [facility] ORDERS INTERFACE US * (ABNORMAL) CBC W/DIFF AUTOMATED (07/01/2019 9:51 AM CDT) [facility] WBC 7.8 4.5 - 11.0 x10'3/uL 07/01/2019 10:19 AM CDT [facility] RBC 2.95(L) 4.20 - 5.40 x10'6/uL 07/01/2019 10:19 AM CDT [facility] HGB 8.7(L) 12.0 - 16.0 G/DL 07/01/2019 10:19 AM CDT [facility] HCT 26.9(L) 38.0 - 48.0 % 07/01/2019 10:19 AM CDT [facility] MCV 91.2 80.0 - 94.0 FL 07/01/2019 10:19 AM CDT [facility] MCH 29.5 27.0 - 31.0 PG 07/01/2019 10:19 AM CDT [facility] MCHC 32.3 32.0 - 36.0 G/DL 07/01/2019 10:19 AM CDT [facility] RDW 15.4(H) 11.5 - 14.5 % 07/01/2019 10:19 AM CDT [facility] PLT 191 130 - 400 x10'3/uL 07/01/2019 10:19 AM CDT [facility] MPV 10.2 9.3 - 12.2 FL 07/01/2019 10:19 AM CDT [facility] DIFFERENTIAL TYPE AUTOMATED DIFFERENTIAL 07/01/2019 10:19 AM CDT [facility] NEUTROPHILS % 77.8 % 07/01/2019 10:19 AM CDT [facility] LYMPHOCYTES % 13.6 % 07/01/2019 10:19 AM CDT [facility] MONOCYTES % 5.5 % 07/01/2019 10:19 AM CDT [facility] EOSINOPHILS 1.5 % 07/01/2019 10:19 AM CDT [facility] BASOPHILS 0.4 % 07/01/2019 10:19 AM CDT [facility] IMMATURE GRANS % 1.2 % 07/01/19 10:19 AM CDT [facility] ABS. NEUTROPHILS TOTAL 6.04 1.80 - 7.70 x10'3/uL 07/01/2019 10:19 AM CDT [facility] ABS. LYMPHOCYTES 1.06 1.00 - 4.80 x10'3/uL 07/01/2019 10:19 AM CDT [facility] ABS. MONOCYTES 0.43 0.24 - 0.86 x10'3/uL 07/01/2019 10:19 AM CDT [facility] ABS. EOSINOPHILS 0.12 0.04 - 0.36 x10'3/uL 07/01/2019 10:19 AM CDT [facility] ABS. BASOPHILS 0.03 0.01 - 0.08 x10'3/uL 07/01/2019 10:19 AM CDT [facility] ABS. IMMATURE GRANULOCYTES 0.09 0.00 - 0.49 x10'3/uL 07/01/2019 10:19 AM CDT [facility] 07/01/2019 9:51 AM CDT us Loraine Penaloza MD LABORATORY Final Result [facility] [address] [place] [address], [place] [phone] * (ABNORMAL) BASIC METABOLIC PANEL (07/01/2019 9:51 AM CDT) GLUCOSE 93 70 - 99 MG/DL 07/01/2019 10:37 AM [facility] BUN 20(H) 7 - 18 MG/DL 07/01/2019 10:37 AM [facility] CREATININE S/P/B 0.95 0.55 - 1.02 MG/DL 07/01/2019 10:37 AM [facility] SODIUM S/P/B 136 136 - 145 MMOL/L 07/01/2019 10:37 AM [facility] POTASSIUM S/P/B 3.7 3.5 - 5.1 MMOL/L 07/01/2019 10:37 AM [facility] CHLORIDE S/P/B 99(L) 100 - 108 MMOL/L 07/01/2019 10:37 AM [facility] CO2 31.5 21 - 32 MMOL/L 07/01/2019 10:37 AM [facility] CALCIUM S/P/B 8.9 8.5 - 10.1 MG/DL 07/01/2019 10:37 AM [facility] ANION GAP 5.5 5 - 15 MMOL/L 07/01/2019 10:37 AM [facility] BUN CREATININE RATIO 21.1 6 - 26 07/01/2019 10:37 AM [facility] EGFR NON-AFR. AMER. 63(L) >90 ML/MIN/1.7 3 M2 07/01/2019 10:37 AM [facility] EGFR AFR. AMER. 73(L) >90 ML/MIN/1.7 3 M2 07/01/2019 10:37 AM [facility] Comment: NOTE: eGFR is not calculated for patients <18 years of age. This is an estimated GFR (CKD EPI) and should not be used for calculating drug doses. 07/01/2019 9:51 AM CDT us Loraine Penaloza MD LABORATORY Final Result [facility] [address] [place] [address], [place] [phone] * (ABNORMAL) POCT glucose (07/01/2019 8:57 AM CDT) GLUCOSE POC 136(H) 70 - 99 mg/dL 07/01/2019 9:02 AM CDT [facility] ORDERS INTERFACE 07/01/2019 8:57 AM CDT us Loraine Penaloza MD POCT ORDERABLES - GILMA CE Final Result Performing Organization Address [facility] Co de Phone Number [facility] ORDERS INTERFACE US * (ABNORMAL) POCT glucose (07/01/2019 6:47 AM CDT) GLUCOSE POC 67(L) 70 - 99 mg/dL 07/01/2019 6:49 AM CDT [facility] ORDERS INTERFACE 07/01/2019 6:47 AM CDT us Loraine Penaloza MD POCT ORDERABLES - GILMA CE Final Result Performing Organization Address City/[facility] Co de Phone Number [facility] ORDERS INTERFACE US * (ABNORMAL) POCT glucose (07/01/2019 6:08 AM CDT) GLUCOSE POC 42(L) 70 - 99 mg/dL 07/01/2019 6:32 AM CDT [facility] ORDERS INTERFACE 07/01/2019 6:08 AM CDT us Loraine Penaloza MD POCT ORDERABLES - GILMA CE Final Result Performing Organization Address City/[facility]/ZIP Co de Phone Number [facility] ORDERS INTERFACE US * (ABNORMAL) POCT glucose (06/30/2019 9:51 PM CDT) GLUCOSE POC 113(H) 70 - 99 mg/dL 06/30/2019 9:53 PM CDT [facility] ORDERS INTERFACE 06/30/2019 9:51 PM CDT us Loraine Penaloza MD POCT ORDERABLES - GILMA CE Final Result Performing Organization Address [facility] de Phone Number [facility] ORDERS INTERFACE US * (ABNORMAL) POCT glucose (06/30/2019 8:37 PM CDT) GLUCOSE POC 64(L) 70 - 99 mg/dL 06/30/2019 8:49 PM CDT [facility] ORDERS INTERFACE 06/30/2019 8:37 PM CDT us Loraine Penaloza MD POCT ORDERABLES - GILMA CE Final Result Performing Organization Address [facility] de Phone Number [facility] ORDERS INTERFACE US * (ABNORMAL) POCT glucose (06/30/2019 3:50 PM CDT) GLUCOSE POC 162(H) 70 - 99 mg/dL 06/30/2019 3:51 PM CDT [facility] ORDERS INTERFACE 06/30/2019 3:50 PM CDT Loraine Penaloza MD POCT ORDERABLES - GILMA CE Final Result Performing Organization Address [facility] de Phone Number [facility] ORDERS INTERFACE US * USE ECHOCARDIOGRAM W CON (06/30/2019 12:58 PM CDT) Anatomical Region Laterality Modality NA Echocardiogram 06/30/2019 12:3 1 PM CDT Narrative 06/30/2019 2:55 PM CDT ?Echocardiography Report Pat.Name: ??IRIS GIL ? Pat.ID: ?[id number] ? St.Date: ?? 06/30/2019 ? Exam Time: 12:31:00 PM ? Study Type:ECHO WITH CARDIAC DOPPLER COMP Height: ?62in ? Weight: ?169.65lb ?BSA: ? 1.78 m2 ?Age: ??1955,64Y ? Sex: ? FEMALE ? BP: ?156/67 ?HR: ?79 bpm ? Sonogrphr: Lucía Ozuna ? Pat. Stat.:Inpatient ? Room: ?440 ? History / Clinical: Elevated troponin Procedures: ??2D, M-mode, Doppler, Color Flow, Definity was used to enhance endocardial definition. Race: ?B ? ++++++++++++++++++++++++++++++++++++ SUMMARY: ++++++++++++++++++++++++++++++++++++ The left ventricular size is normal. The left ventricular systolic function is lower limits of normal. Estimated left ventricular ejection fraction is 50-55%. Moderate to severe concentric left ventricular hypertrophy. The left atrial size is moderately enlarged. Trivial pericardial effusion, without tamponade physiology. No significant valvular disease. ++++++++++++++++++++++++++++++++++++ FINDINGS: ++++++++++++++++++++++++++++++++++++ LV: ? The left ventricular size is normal. The left ventricular ?systolic ??function is lower limits of normal. Estimated left ?ventricular ??ejection fraction is 50-55%. Moderate to severe ?concentric ??left ventricular hypertrophy. Left ventricular ?diastolic ??function is abnormal. RV: ? The right ventricular size is normal. Right ventricular ?systolic ??function is moderately depressed. IVS: ?No evidence of ventricular septal defect. LA: ? The left atrial size is moderately enlarged. RA: ? Right atrial size is normal. IAS: ?Atrial septum appears intact. JAKOB: ? Trivial pericardial effusion, without tamponade physiology. AO: ? Aorta is normal. PA: ? Estimated right atrial pressure of 5 mmHg. SVn: ?Inferior vena cava is normal. Inferior vena cava shows >50% ?collapse ??with respiration consistent with normal right ?atrial ??pressure. Other: ?Technically difficult exam due to body habitus. AV: ? The aortic valve is trileaflet. No evidence of aortic valve ?stenosis. ??No evidence of aortic regurgitation. MV: ? Trace mitral regurgitation. No evidence of mitral valve ?stenosis. PV: ? No evidence of pulmonic valve stenosis. pulmonic ?regurgitation. TV: ? A trace of tricuspid regurgitation. No evidence of tricuspid ?valve ??stenosis. ++++++++++++++++++++++++++++++++++++ MEASUREMENTS: ++++++++++++++++++++++++++++++++++++ ?DOPPLER LVOT ?? LVOTpkPG ?11 mmHg ?LVOTmnPG ? 5 mmHg LVOTpkVel ?164 cm/s (70-110) LVOT SV ? 52 ml ?? Index ?29.2 ml/m2 LVOT TVI ?29.1 cm ? Right Atrium ?? RA Press ? 5 mmHg ?Luz's Disk ? 20 ? Pulmonary Veins ?? PVnpkVeld ? 35.6 cm/s ?PVnVs/Vd ? 1.7 ? PVnpkVels ? 59.8 cm/s ?PVn A Dur ? 92 ms ?? AV Forward Flow AV TVI ?36.5 cm ?AV pkPG ? 12 mmHg AV pkVel ? 176 cm/s (100-170) Area (TVI) ?1.41 cm2 ??(3-5) Index ?0.792 cm2/m2 AV mnPG ?7 mmHg ?Area (Jesus) ?1.65 cm2 ??(3- 5) MV Forward Flow MV DeTm ?165 ms ?MV E/A ? 0.8 ? MV mnPG ?2 mmHg ?MV pkE ?64 cm/s (60-130) MV pkPG ?3 mmHg ?MV pkA ?80.5 cm/s PV Forward Flow PV pkVel ?76.9 cm/s (60-90) ??PV AC ?160 ms ?? PV pkPG ?2 mmHg ? Lat E' ?? Lat e ? 6.19 cm/s ? Lat E/E' ?? Lat E/e ? 10.3 ? Med E' ?? Med e ? 5.37 cm/s ? Med E/E' ?? Med E/e ? 11.9 ? Aortic Valve ?? Aortic Valve Ar ??0.79 ?Aortic Valve Ve ??0.93 ? PV Antegrade Flow Acceleration Sl ?? 454 cm/s2 ? Right Ventricle ?? Right Ventricle ??7.83 cm/s ?2D Left Ventricle ?? LVIDd ? 4.32 cm ?? (3.6-5.2) LV ESV ?48.4 ml ?? LVIDs ? 3.05 cm ?? (2.3-3.9) LV ESV ?34.2 ml ?? LngAxd ?7.75 cm ?LVESV BP ?40.7 ml ?? LngAxd ? 8.3 cm ?LV EF ? 52.1 % ?? LV EDV ? 101 ml ?LV EF ? 65.1 % ?? LV EDV ?98.1 ml ?LV EF BP ?60.1 % ?? LVEDV BP ? 102 ml ?LV SV ? 52.6 ml ?? LngAxs ?7.44 cm ?LV SV ? 63.9 ml ?? LngAxs ?7.34 cm ?LV SV BP ?61.3 ml ?? LVPW ?? LVPWd ? 1.53 cm ? Ventricular Septum ?? IVSd ?1.39 cm ? Left Atrium ?? LA VOLBP ?57.1 ml ?Index ?32.1 ml/m2 ? Aorta ?? Ao Rtd ? 2.2 cm ?? (zsc -1.6) LVOT ?? LVOT ? 1.5 cm ?LVOTArea ?1.77 cm2 Ratios ?? IVS LA Biplane LAVol I BP ?32.1 ml/m2 ? RA Single Plane Right Atrium MO ??10.5 mm ? Right Atrium Sy ??40.8 ml ?? Right Atrium Sy ??58.6 mm ? Right Atrium Sy ??22.9 ml/m2 Right Atrium Sy ?17 cm2 ? Right Ventricle ?? Right Ventricle ??31.9 mm ? Right Ventricle ??24.4 mm ?? Major Colton ?82.7 mm ?MMODE TA ?? Tricuspid Annul ??12.6 mm ? Signed 06/30/2019 02:55 PM Kirk Seaman, M.D. Procedure Note Kirk Seaman MD - 06/30/2019 Echocardiography Report Pat.Name: IRIS GIL Pat.ID: [id number] .Date: 06/30/2019 Exam Time: 12:31:00 PM Study [...] 31.9 mm Right Ventricle 24.4 mm Major Colton 82.7 mm MMODE TA Tricuspid Annul 12.6 mm Signed 06/30/2019 02:55 PM Kirk Seaman M.D. us Savanna Ardon MD ECHO Final Re sult * (ABNORMAL) POCT glucose (06/30/2019 11:47 AM CDT) GLUCOSE POC 244(H) 70 - 99 mg/dL 06/30/2019 11:49 AM CDT [facility] ORDERS INTERFACE 06/30/2019 11:4 7 AM CDT us Loraine Penaloza MD POCT ORDERABLES - GILMA CE Final Result [facility] ORDERS INTERFACE US * (ABNORMAL) POCT glucose (06/30/2019 8:03 AM CDT) GLUCOSE POC 205(H) 70 - 99 mg/dL 06/30/2019 11:49 AM CDT [facility] ORDERS INTERFACE 06/30/2019 8:03 AM CDT us Loraine Penaloza MD POCT ORDERABLES - GILMA CE Final Result Performing Organization Address [facility] Co de Phone Number [facility] ORDERS INTERFACE US * (ABNORMAL) POCT glucose (06/30/2019 7:21 AM CDT) GLUCOSE POC 56(L) 70 - 99 mg/dL 06/30/2019 7:23 AM CDT [facility] ORDERS INTERFACE 06/30/2019 7:21 AM CDT us Loraine Penaloza MD POCT ORDERABLES - GILMA CE Final Result Performing Organization Address [facility] Phone Number [facility] ORDERS INTERFACE US * (ABNORMAL) POCT glucose (06/30/2019 6:59 AM CDT) GLUCOSE POC 50(L) 70 - 99 mg/dL 06/30/2019 7:23 AM CDT [facility] ORDERS INTERFACE 06/30/2019 6:59 AM CDT us Loraine Penaloza MD POCT ORDERABLES - GILMA CE Final Result Performing Organization Address [facility] de Phone Number [facility] ORDERS INTERFACE US * (ABNORMAL) CBC W/DIFF AUTOMATED (06/30/2019 6:45 AM CDT) WBC 8.3 4.5 - 11.0 x10'3/uL 06/30/2019 7:29 AM CDT [facility] RBC 2.81(L) 4.20 - 5.40 x10'6/uL 06/30/2019 7:29 AM CDT [facility] HGB 8.3(L) 12.0 - 16.0 G/DL 06/30/2019 7:29 AM CDT [facility] HCT 25.5(L) 38.0 - 48.0 % 06/30/2019 7:29 AM CDT [facility] MCV 90.7 80.0 - 94.0 FL 06/30/2019 7:29 AM CDT [facility] MCH 29.5 27.0 - 31.0 PG 06/30/2019 7:29 AM CDT [facility] MCHC 32.5 32.0 - 36.0 G/DL 06/30/2019 7:29 AM CDT [facility] RDW 15.1(H) 11.5 - 14.5 % 06/30/2019 7:29 AM CDT [facility] PLT 213 130 - 400 x10'3/uL 06/30/2019 7:29 AM CDT [facility] MPV 10.5 9.3 - 12.2 FL 06/30/2019 7:29 AM CDT [facility] DIFFERENTIAL TYPE AUTOMATED DIFFERENTIAL 06/30/2019 7:29 AM CDT [facility] NEUTROPHILS % 76.2 % 06/30/2019 7:29 AM CDT [facility] LYMPHOCYTES % 15.4 % 06/30/2019 7:29 AM CDT [facility] MONOCYTES % 5.3 % 06/30/2019 7:29 AM CDT [facility] EOSINOPHILS 1.7 % 06/30/2019 7:29 AM CDT [facility] BASOPHILS 0.6 % 06/30/2019 7:29 AM CDT [facility] IMMATURE GRANS % 0.8 % 06/30/19 20 7:29 AM CDT [facility] ABS. NEUTROPHILS TOTAL 6.34 1.80 - 7.70 x10'3/uL 06/30/2019 7:29 AM CDT [facility] ABS. LYMPHOCYTES 1.28 1.00 - 4.80 x10'3/uL 06/30/2019 7:29 AM CDT [facility] ABS. MONOCYTES 0.44 0.24 - 0.86 x10'3/uL 06/30/2019 7:29 AM CDT [facility] ABS. EOSINOPHILS 0.14 0.04 - 0.36 x10'3/uL 06/30/2019 7:29 AM CDT [facility] ABS. BASOPHILS 0.05 0.01 - 0.08 x10'3/uL 06/30/2019 7:29 AM CDT [facility] ABS. IMMATURE GRANULOCYTES 0.07 0.00 - 0.49 x10'3/uL 06/30/2019 7:29 AM CDT [facility] 06/30/2019 6:45 AM CDT us Loraine Penaloza MD LABORATORY Final Result [facility] [address] [place] [address], * (ABNORMAL) BASIC METABOLIC PANEL (06/30/2019 6:45 AM CDT) GLUCOSE 46(L) 70 - 99 MG/DL 06/30/2019 7:42 AM CDT [facility] BUN 27(H) 7 - 18 MG/DL 06/30/2019 7:42 AM CDT [facility] CREATININE S/P/B 0.92 0.55 - 1.02 MG/DL 06/30/2019 7:42 AM CDT [facility] SODIUM S/P/B 137 136 - 145 MMOL/L 06/30/2019 7:42 AM CDT [facility] POTASSIUM S/P/B 3.5 3.5 - 5.1 MMOL/L 06/30/2019 7:42 AM CDT [facility] CHLORIDE S/P/B 101 100 - 108 MMOL/L 06/30/2019 7:42 AM CDT [facility] CO2 29.0 21 - 32 MMOL/L 06/30/2019 7:42 AM CDT [facility] CALCIUM S/P/B 8.5 8.5 - 10.1 MG/DL 06/30/2019 7:42 AM CDT [facility] ANION GAP 7.0 5 - 15 MMOL/L 06/30/2019 7:42 AM CDT [facility] BUN CREATININE RATIO 29.3(H) 6 - 26 06/30/2019 7:42 AM CDT [facility] EGFR NON-AFR. AMER. 66(L) >90 ML/MIN/1.7 3 M2 06/30/2019 7:42 AM CDT [facility] EGFR AFR. AMER. 76(L) >90 ML/MIN/1.7 3 M2 06/30/2019 7:42 AM T [facility] Comment: NOTE: eGFR is not calculated for patients <18 years of age. This is an estimated GFR (CKD EPI) and should not be used for calculating drug doses. 06/30/2019 6:45 AM CDT us Loraine Penaloza MD LABORATORY Final Result [facility] [address] [place] [address], [place] [phone] * (ABNORMAL) POCT glucose (06/30/2019 6:40 AM CDT) GLUCOSE POC 47(L) 70 - 99 mg/dL 06/30/2019 7:23 AM CDT [facility] ORDERS INTERFACE 06/30/2019 6:40 AM CDT us Loraine Penaloza MD POCT ORDERABLES - GILMA CE Final Result Performing Organization Address [facility] Phone Number [facility] ORDERS INTERFACE US * (ABNORMAL) POCT glucose (06/29/2019 8:12 PM CDT) GLUCOSE POC 194(H) 70 - 99 mg/dL 06/29/2019 8:46 PM CDT [facility] ORDERS INTERFACE 06/29/2019 8:12 PM CDT us Loraine Penaloza MD POCT ORDERABLES - GILMA CE Final Result Performing Organization Address [facility] Phone Number [facility] ORDERS INTERFACE US * (ABNORMAL) POCT glucose (06/29/2019 4:02 PM CDT) GLUCOSE POC 334(H) 70 - 99 mg/dL 06/29/2019 5:00 PM CDT [facility] ORDERS INTERFACE 06/29/2019 4:02 PM CDT us Loraine Penaloza MD POCT ORDERABLES - GILMA CE Final Result Performing Organization Address [facility] Phone Number [facility] ORDERS INTERFACE US * (ABNORMAL) THYROID STIM HORMONE, TSH (06/29/2019 1:52 PM CDT) TSH 20.700(H) 0.358 - 3.74 uIU/ML 06/29/2019 2:46 PM CDT [facility] Comment: HIGH DOSES OF BIOTIN MAY INTERFERE WITH THIS TEST RESULT. CORRELATION TO CLINICAL HISTORY AND PRESENTATION RECOMMENDED. 06/29/2019 1:52 PM CDT us Savanna Ardon MD LABORATORY Final Re sult Performing Organization Address [facility] de Phone Number [facility] [address] [place] [address], * (ABNORMAL) LIPID PANEL (06/29/2019 1:52 PM CDT) [facility] Signature CHOLESTEROL 201(H) <200 MG/DL 06/29/2019 2:37 PM CDT [facility] TRIGLYCERIDES 123 <150 MG/DL 06/29/2019 2:37 PM CDT [facility] HDL 84 >40.0 MG/DL 06/29/2019 2:37 PM CDT [facility] LDL (CALCULATED) 92 <100 MG/DL 06/29/2019 2:37 PM CDT [facility] NON HDL CHOLESTEROL 117 <130 MG/DL 06/29/2019 2:37 PM CDT [facility] CHOL/HDL RATIO 2.4 0.0 - 4.5 06/29/2019 2:37 PM CDT [facility] VLDL CALCULATION 25 5 - 55 MG/DL 06/29/2019 2:37 PM CDT [facility] LIPID INTERPRETATION 06/29/2019 2:37 PM T [facility] Comment: [facility] REPORT RECOMMENDATIONS: ?ADULT ?CHILD ??LOW RISK: ?CHOLESTEROL ? <200 ? <170 ?TRIGLYCERIDE ?<150 ?--- ?HDL ? >=60 ?--- ?LDL ? <100 ? <110 ??BORDERLINE: ?CHOLESTEROL ? 200-239 ?? 170-199 ?TRIGLYCERIDE ?150-199 ? --- ?HDL ?40-59 ?--- ?LDL ? 100-159 ?? 110-129 ??HIGH RISK: ?CHOLESTEROL ? >=240 ?>=200 ?TRIGLYCERIDE ?>=200 ? --- ?HDL ?<40 ?--- ?LDL ? >=160 ?>=130 06/29/2019 1:52 PM CDT us Savanna Ardon MD LABORATORY Final Re sult [facility] [address] [place] [address], * (ABNORMAL) BASIC METABOLIC PANEL (06/29/2019 1:52 PM CDT) GLUCOSE 229(H) 70 - 99 MG/DL 06/29/2019 2:46 PM CDT [facility] BUN 30(H) 7 - 18 MG/DL 06/29/2019 2:46 PM CDT [facility] CREATININE S/P/B 1.08(H) 0.55 - 1.02 MG/DL 06/29/2019 2:46 PM CDT [facility] SODIUM S/P/B 136 136 - 145 MMOL/L 06/29/2019 2:46 PM CDT [facility] POTASSIUM S/P/B 3.5 3.5 - 5.1 MMOL/L 06/29/2019 2:46 PM CDT [facility] CHLORIDE S/P/B 98(L) 100 - 108 MMOL/L 06/29/2019 2:46 PM CDT [facility] CO2 31.9 21 - 32 MMOL/L 06/29/2019 2:46 PM CDT [facility] CALCIUM S/P/B 8.9 8.5 - 10.1 MG/DL 06/29/2019 2:46 PM CDT [facility] ANION GAP 6.1 5 - 15 MMOL/L 06/29/2019 2:46 PM CDT [facility] BUN CREATININE RATIO 27.8(H) 6 - 26 06/29/2019 2:46 PM CDT [facility] EGFR NON-AFR. AMER. 54(L) >90 ML/MIN/1.7 3 M2 06/29/2019 2:46 PM CDT [facility] EGFR AFR. AMER. 63(L) >90 ML/MIN/1.7 3 M2 06/29/2019 2:46 PM CDT [facility] Comment: NOTE: eGFR is not calculated for patients <18 years of age. This is an estimated GFR (CKD EPI) and should not be used for calculating drug doses. 06/29/2019 1:52 PM CDT us Savanna Ardon MD LABORATORY Final Re sult [facility] [address] [place] [address], [place] [phone] * (ABNORMAL) CBC W/DIFF AUTOMATED (06/29/2019 1:52 PM CDT) [facility] WBC 7.8 4.5 - 11.0 x10'3/uL 06/29/2019 2:19 PM CDT [facility] RBC 3.04(L) 4.20 - 5.40 x10'6/uL 06/29/2019 2:19 PM CDT [facility] HGB 9.0(L) 12.0 - 16.0 G/DL 06/29/2019 2:19 PM CDT [facility] HCT 27.5(L) 38.0 - 48.0 % 06/29/2019 2:19 PM CDT [facility] MCV 90.5 81.0 - 99.0 FL 06/29/2019 2:19 PM CDT [facility] MCH 29.6 27.0 - 31.0 PG 06/29/2019 2:19 PM CDT [facility] MCHC 32.7 32.0 - 36.0 G/DL 06/29/2019 2:19 PM CDT [facility] RDW 15.1(H) 11.5 - 14.5 % 06/29/2019 2:19 PM CDT [facility] PLT 220 130 - 400 x10'3/uL 06/29/2019 2:19 PM CDT [facility] MPV 9.8 9.3 - 12.2 FL 06/29/2019 2:19 PM CDT [facility] DIFFERENTIAL TYPE AUTOMATED DIFFERENTIAL 06/29/2019 2:19 PM CDT [facility] NEUTROPHILS % 79.7 % 06/29/2019 2:19 PM CDT [facility] LYMPHOCYTES % 12.2 % 06/29/2019 2:19 PM CDT [facility] MONOCYTES % 4.9 % 06/29/2019 2:19 PM CDT [facility] EOSINOPHILS 1.5 % 06/29/2019 2:19 PM CDT [facility] BASOPHILS 0.5 % 06/29/2019 2:19 PM CDT [facility] IMMATURE GRANS % 1.2 % 06/29/19 2:19 PM CDT [facility] ABS. NEUTROPHILS TOTAL 6.20 1.80 - 7.70 x10'3/uL 06/29/2019 2:19 PM CDT [facility] ABS. LYMPHOCYTES 0.95(L) 1.00 - 4.80 x10'3/uL 06/29/2019 2:19 PM CDT [facility] ABS. MONOCYTES 0.38 0.24 - 0.86 x10'3/uL 06/29/2019 2:19 PM CDT [facility] ABS. EOSINOPHILS 0.12 0.04 - 0.36 x10'3/uL 06/29/2019 2:19 PM CDT [facility] ABS. BASOPHILS 0.04 0.01 - 0.08 x10'3/uL 06/29/2019 2:19 PM CDT [facility] ABS. IMMATURE GRANULOCYTES 0.09 0.00 - 0.49 x10'3/uL 06/29/2019 2:19 PM CDT [facility] 06/29/2019 1:52 PM CDT us Savanna Ardon MD LABORATORY Final Re sult [facility] [address] [place] [address], [place] [phone] * (ABNORMAL) POCT glucose (06/29/2019 11:36 AM CDT) GLUCOSE POC 180(H) 70 - 99 mg/dL 06/29/2019 3:30 PM CDT [facility] LAB ORDERS INTERFACE 06/29/2019 11:3 6 AM CDT us Loraine Penaloza MD POCT ORDERABLES - GILMA CE Final Result Performing Organization Address [facility] Co de Phone Number [facility] ORDERS INTERFACE US * POCT glucose (06/29/2019 6:24 AM CDT) GLUCOSE POC 96 70 - 99 mg/dL 06/29/2019 6:28 AM CDT [facility] ORDERS INTERFACE 06/29/2019 6:24 AM CDT us Loraine Penaloza MD POCT ORDERABLES - GILMA CE Final Result Performing Organization Address [facility] Co de Phone Number [facility] ORDERS INTERFACE US * (ABNORMAL) TROPONIN, QUANT (06/29/2019 2:35 AM CDT) TROPONIN I 0.135(HH) <0.045 ng/mL. 06/29/2019 3:47 AM CDT [facility] Comment: HIGH DOSES OF BIOTIN MAY INTERFERE WITH THIS TEST RESULT. CORRELATION TO CLINICAL HISTORY AND PRESENTATION RECOMMENDED. 06/29/2019 2:35 AM CDT us Savanna Ardon MD LABORATORY Final Re sult Performing Organization Address [facility]/ZIP Co de Phone Number [facility] [address] [place] [address], [place] [phone] * (ABNORMAL) LACTIC ACID - SINGLE (06/29/2019 12:09 AM CDT) LACTIC ACID VENOUS 2.9(H) 0.4 - 2.0 MMOL/L 06/29/2019 12:38 AM CDT [facility] Comment: BPM CALLED CRITICAL RESULTS AT [id number] TO AND READ BACK BY TEQUILA MOLINA RN 06/29/2019 12:0 9 AM CDT Savanna Ardon MD LABORATORY Final Re sult Performing Organization Address [facility] Co de Phone Number [facility] [address] [place] [address], [place] [phone] * (ABNORMAL) TROPONIN, QUANT (06/28/2019 9:34 PM CDT) TROPONIN I 0.125(HH) <0.045 ng/mL. 06/28/2019 10:15 PM CDT [facility] Comment: HIGH DOSES OF BIOTIN MAY INTERFERE WITH THIS TEST RESULT. CORRELATION TO CLINICAL HISTORY AND PRESENTATION RECOMMENDED. 06/28/2019 9:34 PM CDT Savanna Ardon MD LABORATORY Final Re sult Performing Organization Address [facility] Co de Phone Number [facility] [address] [place] [address], [place] [phone] * (ABNORMAL) POCT glucose (06/28/2019 8:20 PM CDT) GLUCOSE POC 352(H) 70 - 99 mg/dL 06/28/2019 8:34 PM CDT [facility] ORDERS INTERFACE 06/28/2019 8:20 PM CDT Savanna Ardon MD POCT ORDERABLES - DEVICE Final Result Performing Organization Address City/[facility] Co de Phone Number [facility] ORDERS INTERFACE US * (ABNORMAL) TROPONIN, QUANT (06/28/2019 7:42 PM CDT) TROPONIN I 0.124(HH) <0.045 ng/mL. 06/28/2019 8:19 PM CDT [facility] Comment: HIGH DOSES OF BIOTIN MAY INTERFERE WITH THIS TEST RESULT. CORRELATION TO CLINICAL HISTORY AND PRESENTATION RECOMMENDED. 06/28/2019 7:42 PM CDT Amanda Moore MD LABORATORY Final Result Performing Organization Address City/[facility]/ZIP Co de Phone Number [facility] [address] [place] [address], * (ABNORMAL) LACTIC ACID - SINGLE (06/28/2019 6:24 PM CDT) LACTIC ACID VENOUS 3.7(H) 0.4 - 2.0 MMOL/L 06/28/2019 7:07 PM CDT [facility] Comment: BPM CALLED CRITICAL RESULTS AT [id number] TO AND READ BACK BY TRANG VASQUEZ RN 06/28/2019 6:24 PM CDT Savanna Ardon MD LABORATORY Final Re sult Performing Organization Address City/[facility]/ZIP Co de Phone Number [facility] [address] [place] [address], [place] [phone] * (ABNORMAL) CULTURE, BACTERIA, BLOOD (06/28/2019 6:24 PM CDT) SPEC DESCRIPTION BLOOD 06/28/2019 6:10 PM CDT [facility] SPECIAL REQUESTS NO SPECIAL REQUEST 06/28/2019 6:10 PM CDT [facility] GRAM STAIN RESULT GRAM POSITIVE COCCI RESEMBLING STAPHYLOCOCCUS SPECIES 06/30/2019 12:17 PM CDT [facility] GRAM STAIN RESULT GRAM STAIN CALLED TO AND REPEATED BACK BY MANJINDER SRINIVASAN RN, AT 1215, 06/30/19. DJW 06/30/2019 12:17 PM CDT [facility] CULTURE RESULT GROWTH OF STAPH. SPECIES NOT STAPH. AUREUS SUSCEPTIBILTY NOT ROUTINELY PERFORMED. SAVING ISOLATE FOR 5 DAYS. CONTACT MICROBIOLOGY DEPARTMENT IF FURTHER WORKUP IS INDICATED. (AA) 07/02/2019 7:16 AM CDT [facility] BLOOD SPECIMEN OBTAINED FOR BLOOD CULTURE / Unknown 06/28/2019 6:24 PM CDT 06/28/2019 6:43 PM CDT Savanna Ardon MD MICROBIOLOGY - GENERAL O RDERAELBA Final Result [facility] [address] [place] [address], [place] [phone] * (ABNORMAL) CULTURE, BACTERIA, BLOOD (06/28/2019 6:24 PM CDT) SPEC DESCRIPTION BLOOD 06/28/2019 6:10 PM CDT [facility] SPECIAL REQUESTS NO SPECIAL REQUEST 06/28/2019 6:10 PM CDT [facility] GRAM STAIN RESULT GRAM POSITIVE COCCI RESEMBLING STREPTOCOCCUS SPECIES 06/29/2019 1:39 PM CDT [facility] GRAM STAIN RESULT GRAM STAIN CALLED TO AND REPEATED BACK BY ROLF DURBIN RN, AT 1335, 06/29/19. DJW 06/29/2019 1:39 PM CDT [facility] CULTURE RESULT METHICILLIN RESISTANT STAPHYLOCOCCUS AUREUS DETECTED BY VERIGENE NUCLEIC ACID TEST FOLLOW ISOLATION PROTOCOL. (AA) 07/01/2019 7:43 AM CDT [facility] CULTURE RESULT ENTEROCOCCUS FAECALIS DETECTED BY VERIGENE NUCLEIC ACID TEST NO RESISTANCE MARKERS DETECTED BY VERIGENE NUCLEIC ACID TEST. (AA) 07/01/2019 7:43 AM CDT [facility] CULTURE RESULT CALLED RN FOR MRSA ELOISECOBettina LEE. PHARMACY CALLED AT [phone] FOR VERIGENE RESULTS TALKED TO AJ HAYWARD. 07/01/2019 7:43 AM CDT [facility] CULTURE RESULT GROWTH OF METHICILLIN RESISTANT STAPHYLOCOCCUS AUREUS FOLLOW ISOLATION PROTOCOL. CALLED TO AND REPEATED BACK BY ANNE DE OLIVEIRA AT 0732 CLW 07/01/2019 (AA) 07/01/2019 7:43 AM CDT [facility] CULTURE RESULT GROWTH OF ENTEROCOCCUS FAECALIS IF PATIENT IS PENICILLIN ALLERGIC, CONTACT THE MICROBIOLOGY DEPARTMENT FOR READILY AVAILABLE VANCOMYCIN SUSCEPTIBILITY. (AA) 07/01/2019 7:43 AM CDT [facility] BLOOD SPECIMEN OBTAINED FOR BLOOD CULTURE / Unknown 06/28/2019 6:24 PM CDT 06/28/2019 6:41 PM CDT Narrative Organism Antibiotic Method Susceptibility Methicillin resistant staphylococcus aureus CLINDAMYCIN MICHAEL (VITEK) >=8: Resistant Methicillin resistant staphylococcus aureus ERYTHROMYCIN MICHAEL (VITEK) >=8: Resistant Methicillin resistant staphylococcus aureus OXACILLIN MICHAEL (VITEK) >=4: Resistant Methicillin resistant staphylococcus aureus TRIMETH-SULFAMETH. MICHAEL (VITEK) <=10: Sensitive Methicillin resistant staphylococcus aureus TETRACYCLINE MICHAEL (VITEK) <=1: Sensitive Methicillin resistant staphylococcus aureus VANCOMYCIN MICHAEL (VITEK) 1: Sensitive Enterococcus faecalis AMPICILLIN MICHAEL (VITEK) <=2: Sensitive Enterococcus faecalis GENT. SYNERGY SCREEN MICHAEL (VITEK) Resistant Enterococcus faecalis PENICILLIN G MICHAEL (VITEK) 2: Sensitive Enterococcus faecalis LINEZOLID MICHAEL (VITEK) 1: Sensitive Savanna Ardon MD MICROBIOLOGY - GENERAL O RDERABLES Final Result [facility] [address] [place] [address], * CULTURE URINE (06/28/2019 6:09 PM CDT) SPEC DESCRIPTION URINE KAPLAN CATH 06/28/2019 7:14 PM CDT [facility] SPECIAL REQUESTS NO SPECIAL REQUEST 06/28/2019 7:14 PM CDT [facility] CULTURE RESULT NO GROWTH 2 DAYS 07/01/2019 7:00 AM CDT [facility] URINE SPECIMEN OBTAINED VIA [facility] URINARY CATHETER / Unknown 06/28/2019 6:09 PM CDT 06/28/2019 7:13 PM CDT us Amanda Moore MD MICROBIOLOGY - GENERAL SREEDHAR ARREOLA Final Result [facility] [address] [place] [address], [place] [phone] * (ABNORMAL) URINALYSIS (06/28/2019 6:09 PM CDT) SPECIMEN TYPE URINE KAPLAN CATH 06/28/2019 6:08 PM CDT [facility] COLOR (U) PINKISH RED 06/28/2019 7:09 PM CDT [facility] TRANSPARENCY TURBID 06/28/2019 7:00 PM CDT [facility] SPECIFIC GRAVITY (U) 1.021 1.001 - 1.030 06/28/2019 7:00 PM CDT [facility] U PH 6.0 5.0 - 9.0 06/28/2019 7:00 PM CDT [facility] LEUKOCYTES (U) SMALL(A) NEGATIVE 06/28/2019 7:00 PM CDT [facility] NITRITES NEGATIVE NEGATIVE 06/28/2019 7:00 PM CDT [facility] PROTEIN (U) 100(H) <30 MG/DL 06/28/2019 7:00 PM CDT [facility] URINE GLUCOSE >500(A) NEGATIVE MG/DL 06/28/2019 7:00 PM CDT [facility] KETONES MG/DL (U) TRACE(A) NEGATIVE MG/DL 06/28/2019 7:00 PM CDT [facility] Comment: Successful Call: LALITHA called 06/28/2019 07:01 PM to EMERGENCY ROOM ([id number]/PETEY LAWSON) by [id number]. UROBILINOGEN NEGATIVE NEGATIVE MG/DL 06/28/2019 7:00 PM CDT [facility] BILIRUBIN (U) NEGATIVE NEGATIVE MG/DL 06/28/2019 7:00 PM CDT [facility] BLOOD (U) LARGE(A) NEGATIVE 06/28/2019 7:00 PM CDT [facility] CULTURE & SENSITIVITY INDICATED? SPECIMEN SETUP FOR CULTURE 06/28/2019 7:00 PM CDT [facility] WBC/HPF >100(H) <6 /HPF 06/28/2019 7:12 PM CDT [facility] Comment:CORRECTED ON 06/27 A T 191: PREVIOUSLY REPORTED <1 RBC/HPF >100(H) <6 /HPF 06/28/2019 7:12 PM CDT [facility] Comment:CORRECTED ON 06/27 Leslie T 191: PREVIOUSLY REPORTED <1 AMORPHOUS SEDIMENT MANY /HPF 06/28/2019 7:12 PM CDT [facility] URINE SPECIMEN OBTAINED VIA [facility] URINARY CATHETER / Unknown 06/28/2019 6:09 PM CDT us Amanda Moore MD URINE ORDERABLES Edited Resul t - Final Performing Organization Address City/[facility] Co de Phone Number [facility] [address] [place] [address], [place] [phone] * (ABNORMAL) POCT glucose (06/28/2019 5:35 PM CDT) GLUCOSE POC 441(HH) 70 - 99 mg/dL 06/28/2019 5:39 PM CDT [facility] ORDERS INTERFACE 06/28/2019 5:35 PM CDT us Amanda Moore MD POCT ORDERABLES - DEVICE Debbie l Result [facility] ORDERS INTERFACE US * CT CERV SPINE WO CON (06/28/2019 3:33 PM CDT) Anatomical Region Laterality Modality Spine Computed Tomogra phy 06/28/2019 3:46 PM CDT Impressions 06/28/2019 3:52 PM CDT IMPRESSION: 1. ??No acute traumatic injury identified. 2. ??Spondylosis as described. 3. ??Bilateral carotid atherosclerosis. Interpreted By: Xavier Costa MD, 06/28/2019 3:46 PM Narrative 06/28/2019 3:52 PM CDT Examination: CT of the cervical spine. Exam time: 1521 hours. Clinical history: Trauma. ??Patient fell. Comparison: None. Technique: Thin section spiral [...] Findings: There is no fracture or dislocation. ??The reconstructions confirm maintenance of vertebral body height. ??Mild reversal of the normal lordosis and minimal anterolisthesis at C4-5 are attributed to the presence of the collar. ??Alignment is otherwise satisfactory. ??There is disc narrowing and paravertebral osteophyte formation at C5-6, C6-7 and C7-T1. ??The other intervertebral discs are maintained normally in height. ??There is mild generalized facet arthropathy. ??The neural foramina and central canal appear patent. ??The spinal canal contents, as visualized, appear unremarkable. ??There is no paraspinal edema or hematoma. ??There is atherosclerotic calcification in the carotid distributions bilaterally. Procedure Note Xavier Costa MD - 06/28/2019 Examination: CT of the cervical spine. Exam time: 1521 hours. Clinical history: Trauma. Patient fell. Comparison: None. Technique: Thin section spiral axial scans were acquired from the skullbase through the T1-2 level without contrast. Sagittal and coronalreconstructions were performed from the data set. A dose loweringtechnique was used for this procedure, which may include, but is notlimited to, dose reduction techniques, automated exposure control, the useof iterative reconstruction and ALARA/Image Gently techniques. Findings: There is no fracture or dislocation. The reconstructionsconfirm maintenance of vertebral body height. Mild reversal of the normallordosis and minimal anterolisthesis at C4-5 are attributed to thepresence of the collar. Alignment is otherwise satisfactory. There isdisc narrowing and paravertebral osteophyte formation at C5-6, C6-7 andC7-T1. The other intervertebral discs are maintained normally in height.There is mild generalized facet arthropathy. The neural foramina andcentral canal appear patent. The spinal canal contents, as visualized,appear unremarkable. There is no paraspinal edema or hematoma. There isatherosclerotic calcification in the carotid distributions bilaterally. IMPRESSION: 1. No acute traumatic injury identified. 2. Spondylosis as described. 3. Bilateral carotid atherosclerosis. Interpreted By: Xavier Costa MD, 06/28/2019 3:46 PM us Amanda Moore MD CT Final Result * CT HEAD WO CON (06/28/2019 3:33 PM CDT) Anatomical Region Laterality Modality Head Computed Tomogra phy 06/28/2019 3:35 PM CDT Impressions 06/28/2019 3:40 PM CDT IMPRESSION: 1. ??No acute intracranial process identified. 2. ??Stable cortical atrophy and small vessel disease. 3. ??Left supraorbital scalp swelling. Interpreted By: Xavier Costa MD, 06/28/2019 3:35 PM Narrative 06/28/2019 3:40 PM CDT Examination: CT of the head without contrast. Exam time: 1520 hours. Clinical history: Trauma. ??Patient fell. Comparison: 06/05/2019. Technique: Noncontrast axial scans [...] age, compatible with mild diffuse cortical atrophy. ??This is unchanged. ??No shift of midline or mass effect is noted. ??Physiologic calcification in the basal ganglia is again evident. ??There is stable periventricular decreased attenuation, compatible with small vessel disease. ??Intracranially, no new areas of abnormal x-ray attenuation are identified. ??In particular, there is no mass, hemorrhage or sign of acute stroke. ??No extracerebral fluid collections. ??The skull appears intact. ??The mastoid air cells and visualized paranasal sinuses appear clear. ??There is left supraorbital scalp swelling. Procedure Note Xavier Costa MD - 06/28/2019 Examination: CT of the head without contrast. Exam time: 1520 hours. Clinical history: Trauma. Patient fell. Comparison: 06/05/2019. Technique: Noncontrast axial scans from skull base to vertex. A doselowering technique was used for this procedure, which may include, but isnot limited to, dose reduction techniques, automated exposure control, theuse of iterative reconstruction and ALARA/Image Gently techniques. Findings: There is prominence of the ventricles, fissures and sulci,somewhat greater than anticipated for age, compatible with mild diffusecortical atrophy. This is unchanged. No shift of midline or mass effectis noted. Physiologic calcification in the basal ganglia is againevident. There is stable periventricular decreased attenuation,compatible with small vessel disease. Intracranially, no new areas ofabnormal x-ray attenuation are identified. In particular, there is nomass, hemorrhage or sign of acute stroke. No extracerebral fluidcollections. The skull appears intact. The mastoid air cells andvisualized paranasal sinuses appear clear. There is left supraorbitalscalp swelling. IMPRESSION: 1. No acute intracranial process identified. 2. Stable cortical atrophy and small vessel disease. 3. Left supraorbital scalp swelling. Interpreted By: Xavier Costa MD, 06/28/2019 3:35 PM us Amanda Moore MD CT Final Result * XR CHEST PORTABLE (06/28/2019 2:28 PM CDT) Anatomical Region Laterality Modality Chest Radiographic Sylvia ging 06/28/2019 2:29 PM CDT Impressions 06/28/2019 2:32 PM CDT =====IMPRESSION:===== 1. No acute infiltrate demonstrated. 2. Mild cardiomegaly. 3. Old healed granulomatous disease. 4. Suboptimal exam. Narrative 06/28/2019 2:32 PM CDT Examination: Chest x-ray 1 view Exam date/time: 06/28/2019 2:16 PM Reason For Exam: ??Fall. Hypertension. ?? Comparison: 06/05/2019 Findings: ??Exam is compromised by underinflation, supine positioning and overlying artifact. Chronic monitor wires and leads are noted. Left axillary surgical clips. Mild cardiomegaly. Aortic arch calcifications. Pulmonary vessels are grossly within normal limits for supine positioning. Minimal atelectasis. No acute airspace consolidation, pleural effusion or pneumothorax. There is a bulky calcified right paratracheal lymph node compatible with old healed granulomatous disease. Tiny right granuloma. Procedure Note Khalif Reich MD - 06/28/2019 Examination: Chest x-ray 1 view Exam date/time: 06/28/2019 2:16 PM Reason For Exam: Fall. Hypertension. Comparison: 06/05/2019 Findings: Exam is compromised by underinflation, supine positioning and overlying artifact. Chronic monitor wires and leads are noted. Left axillary surgical clips. Mild cardiomegaly. Aortic arch calcifications. Pulmonary vessels are grossly within normal limits for supinepositioning. Minimal atelectasis. No acute airspace consolidation, pleural effusionor pneumothorax. There is a bulky calcified right paratracheal lymph node compatible with old healed granulomatous disease. Tiny right granuloma. =====IMPRESSION:===== 1. No acute infiltrate demonstrated. 2. Mild cardiomegaly. 3. Old healed granulomatous disease. 4. Suboptimal exam. us Amanda Moore MD GENERAL IMAGING Final Result * CK (CPK) (06/28/2019 2:26 PM CDT) CPK 152 21 - 215 U/L 06/28/2019 4:12 PM CDT [facility] 06/28/2019 2:26 PM CDT Amanda Moore MD LABORATORY Final Result Performing Organization Address [facility] Co de Phone Number [facility] [address] [place] [address], [place] [phone] * (ABNORMAL) TROPONIN, QUANT (06/28/2019 2:26 PM CDT) TROPONIN I 0.130(HH) <0.045 ng/mL. 06/28/2019 3:56 PM CDT [facility] Comment: ER CALLED CRITICAL RESULTS AT [id number] TO AND READ BACK BY JEF MALLORY HIGH DOSES OF BIOTIN MAY INTERFERE WITH THIS TEST RESULT. CORRELATION TO CLINICAL HISTORY AND PRESENTATION RECOMMENDED. 06/28/2019 2:26 PM CDT Amanda Moore MD LABORATORY Final Result Performing Organization Address City/[facility]/ZIP Co de Phone Number [facility] [address] [place] [address], [place] [phone] * (ABNORMAL) COMPREHENSIVE METABOLIC PANEL (06/28/2019 2:26 PM CDT) GLUCOSE 570(HH) 70 - 99 MG/DL 06/28/2019 3:56 PM CDT [facility] Comment: ER CALLED CRITICAL RESULTS AT [id number] TO AND READ BACK BY JEF MALLORY BUN 26(H) 7 - 18 MG/DL 06/28/2019 3:56 PM CDT [facility] CREATININE S/P/B 1.31(H) 0.55 - 1.02 MG/DL 06/28/2019 3:56 PM CDT [facility] SODIUM S/P/B 133(L) 136 - 145 MMOL/L 06/28/2019 3:56 PM CDT [facility] POTASSIUM S/P/B 4.1 3.5 - 5.1 MMOL/L 06/28/2019 3:56 PM CDT [facility] CHLORIDE S/P/B 92(L) 100 - 108 MMOL/L 06/28/2019 3:56 PM CDT [facility] CO2 33.3(H) 21 - 32 MMOL/L 06/28/2019 3:56 PM CDT [facility] CALCIUM S/P/B 9.5 8.5 - 10.1 MG/DL 06/28/2019 3:56 PM CDT [facility] BILIRUBIN TOTAL S/P/B 0.5 0.2 - 1.2 MG/DL 06/28/2019 3:56 PM CDT [facility] Comment: THIS ASSAY IS NOT RECOMMENDED FOR PATIENTS UNDERGOING TREATMENT WITH ELTROMBOPAG DUE TO THE POTENTIAL FOR FALSELY ELEVATED RESULTS. TOTAL PROTEIN S/P/B 8.1 6.4 - 8.2 G/DL 06/28/2019 3:56 PM CDT [facility] ALBUMIN S/P/B 2.9(L) 3.4 - 5.0 G/DL 06/28/2019 3:56 PM CDT [facility] AST 28 15 - 37 U/L 06/28/2019 3:56 PM CDT [facility] ALT 39 14 - 55 U/L 06/28/2019 3:56 PM CDT [facility] ALKALINE PHOSPHATASE S/P/B 75 50 - 136 U/L 06/28/2019 3:56 PM CDT [facility] ANION GAP 7.7 5 - 15 MMOL/L 06/28/2019 3:56 PM CDT [facility] BUN CREATININE RATIO 19.8 6 - 26 06/28/2019 3:56 PM CDT [facility] A/G RATIO 0.6(L) 1.0 - 2.0 RATIO 06/28/2019 3:56 PM CDT [facility] EGFR NON-AFR. AMER. 43(L) >90 ML/MIN/1.7 3 M2 06/28/2019 3:56 PM CDT [facility] EGFR AFR. AMER. 50(L) >90 ML/MIN/1.7 3 M2 06/28/2019 3:56 PM CDT [facility] Comment: NOTE: eGFR is not calculated for patients <18 years of age. This is an estimated GFR (CKD EPI) and should not be used for calculating drug doses. 06/28/2019 2:26 PM CDT Amanda Moore MD LABORATORY Final Result [facility] [address] [place] [address], [place] [phone] * (ABNORMAL) CBC W/DIFF AUTOMATED (06/28/2019 2:26 PM CDT) WBC 6.8 4.5 - 11.0 x10'3/uL 06/28/2019 4:16 PM CDT [facility] RBC 3.47(L) 4.20 - 5.40 x10'6/uL 06/28/2019 4:16 PM CDT [facility] HGB 10.2(L) 12.0 - 16.0 G/DL 06/28/2019 4:16 PM CDT [facility] HCT 30.8(L) 38.0 - 48.0 % 06/28/2019 4:16 PM CDT [facility] MCV 88.8 81.0 - 99.0 FL 06/28/2019 4:16 PM CDT [facility] MCH 29.4 27.0 - 31.0 PG 06/28/2019 4:16 PM CDT [facility] MCHC 33.1 32.0 - 36.0 G/DL 06/28/2019 4:16 PM CDT [facility] RDW 14.7(H) 11.5 - 14.5 % 06/28/2019 4:16 PM CDT [facility] PLT 267 130 - 400 x10'3/uL 06/28/2019 4:16 PM CDT [facility] MPV 11.0 9.3 - 12.2 FL 06/28/2019 4:16 PM CDT [facility] DIFFERENTIAL TYPE AUTOMATED DIFFERENTIAL 06/28/2019 4:16 PM CDT [facility] NEUTROPHILS % 74.0 % 06/28/2019 4:16 PM CDT [facility] LYMPHOCYTES % 16.1 % 06/28/2019 4:16 PM CDT [facility] MONOCYTES % 6.2 % 06/28/2019 4:16 PM CDT [facility] EOSINOPHILS 1.0 % 06/28/2019 4:16 PM CDT [facility] BASOPHILS 0.6 % 06/28/2019 4:16 PM CDT [facility] IMMATURE GRANS % 2.1 % 06/28/19 20 4:16 PM CDT [facility] ABS. NEUTROPHILS TOTAL 5.03 1.80 - 7.70 x10'3/uL 06/28/2019 4:16 PM CDT [facility] ABS. LYMPHOCYTES 1.09 1.00 - 4.80 x10'3/uL 06/28/2019 4:16 PM CDT [facility] ABS. MONOCYTES 0.42 0.24 - 0.86 x10'3/uL 06/28/2019 4:16 PM CDT [facility] ABS. EOSINOPHILS 0.07 0.04 - 0.36 x10'3/uL 06/28/2019 4:16 PM CDT [facility] ABS. BASOPHILS 0.04 0.01 - 0.08 x10'3/uL 06/28/2019 4:16 PM CDT [facility] ABS. IMMATURE GRANULOCYTES 0.14 0.00 - 0.49 x10'3/uL 06/28/2019 4:16 PM CDT [facility] [facility] 06/28/2019 2:26 PM CDT us Amanda Moore MD LABORATORY Final Result [facility] [address] [place] [address], * Critical Care (06/28/2019 2:09 PM CDT) Narrative Amanda Moore MD - 06/28/2019 2:09 PM CDT Amanda Moore MD ? 06/28/2019 ??5:23 PM Critical Care Performed by: Amanda Moore MD Authorized by: Amanda Moore MD Critical care provider statement: ??Critical care time (minutes): ??35 ??Critical care time was exclusive of: ??Separately billable procedures and treating other patients ??Critical care was necessary to treat or prevent imminent or life-threatening deterioration of the following conditions: ??COMPENSATION INTERN failure or compromise ??Critical care was time spent personally by me on the following activities: ??Development of treatment plan with patient or surrogate, discussions with consultants, evaluation of patient's response to treatment, examination of patient, obtaining history from patient or surrogate, review of old charts, re-evaluation of patient's condition, pulse oximetry, ordering and review of radiographic studies, ordering and review of laboratory studies and ordering and performing treatments and interventions us Amanda Moore MD PROCEDURE/MINOR SURGICAL ORDE MORALES Final Result * ECG 12 lead (06/28/2019 2:08 PM CDT) 06/28/2019 2:08 PM CDT Narrative [facility] ([facility]) RAD - 06/28/2019 4:46 PM CDT ?[facility] [place] ? [address] [facility] [place] [place] ? Test Date: ?2019-06-28 Pat Name: ? IRIS GIL ? Department: ? Room: ? [id number] Gender: ? Female ? Tennis Director: ?? ND : ?1955 ? Requested By: AMANDA MOORE Order Number: [id number] ? Reading : ?? Jonatan Aldrich ? Measurements Intervals ?[place] ? Rate: ? 70 ? P: ?54 MO: ? 168 ?QRS: ?-43 QRSD: ? 117 ?T: ?127 QT: ? 435 ? QTc: ?470 ? Interpretive Statements SINUS RHYTHM MARKED LEFT AXIS DEVIATION POSSIBLE ANTERIOR MYOCARDIAL INFARCTION, OF INDETERMINATE AGE MODERATE T-WAVE ABNORMALITY, CONSIDER LATERAL ISCHEMIA Compared to ECG 06/05/2019 14:03:27 T-wave abnormality now present Possible ischemia now present Left anterior fascicular block no longer present ST (T wave) deviation no longer present Myocardial infarct finding still present Procedure Note Jonatan Aldrich MD - 06/28/[address] [facility] [place] [address] [facility] [place] Test Date: 2019-06-28 Pat Name: IRIS GIL Department: Room: [place] [address] Gender: Female Tennis Director: DIONICIO : 1955 Requested By: AMANDA MOORE Order Number: [id number] Reading MD: Jonatan Aldrich Measurements Intervals [place] Rate: 70 P: 54 MO: 168 QRS: -43 QRSD: 117 T: 127 QT: 435 QTc: 470 Interpretive Statements SINUS RHYTHM MARKED LEFT AXIS DEVIATION POSSIBLE ANTERIOR MYOCARDIAL INFARCTION, OF INDETERMINATE AGE MODERATE T-WAVE ABNORMALITY, CONSIDER LATERAL ISCHEMIA Compared to ECG 06/05/2019 14:03:27 T-wave abnormality now present Possible ischemia now present Left anterior fascicular block no longer present ST (T wave) deviation no longer present Myocardial infarct finding still present us Amanda Moore MD ECG ORDERABLES Final Result Performing Organization Address City/State/[facility] Co de Phone Number [facility] ([facility]) [facility] documented in this encounter Visit Diagnoses Diagnosis Bacteremia- Primary Encephalopathy Encephalopathy, unspecified Elevated troponin Other abnormal blood chemistry Encephalopathy acute Encephalopathy, unspecified Elevated troponin Other abnormal blood chemistry Essential hypertension Unspecified essential hypertension Mixed hyperlipidemia documented in this encounter Admitting Diagnoses Diagnosis Elevated troponin Other abnormal blood chemistry documented in this encounter Administered Medications Inactive Administered Medications - up to 3 most recent administrations Medication Order MAR Action Action Date Dose Rate Site aspirin tablet 325 mg 325 mg, Oral, Once, 1 dose, On Mon06/28/19 at 2030 Given 06/28/2019 8:41 PM CDT 325 mg aspirin tablet 325 mg 325 mg, Oral, Daily, First dose (after last reorder) on 06/29/19 at 0900, Until Discontinued Given 07/09/2019 9:30 AM CDT 325 mg Given 07/08/2019 9:19 AM CDT 325 mg Given 07/07/2019 8:38 AM CDT 325 mg atorvastatin (LIPITOR) tablet 40 mg 40 mg, Oral, Daily, First dose on 06/29/19 at 1600, Until Discontinued Given 07/09/2019 9:30 AM CDT 40 mg Given 07/08/2019 9:19 AM CDT 40 mg Given 07/07/2019 8:38 AM CDT 40 mg bisacodyl (DULCOLAX) suppository 10 mg 10 mg, Rectal, Once, 1 dose, On Mon07/08/19 at 1745 Given 07/08/2019 6:15 PM CDT 10 mg ceFEPIme (MAXIPIME) 2 g in sodium chloride 0.9 % 100 mL IVPB 2 g, Intravenous, Administer over 30 Minutes, Every 12 hours, First dose on Mon06/28/19 at 1815, Until Discontinued, Per P&T protocol this has been adjusted by the antimicrobial monitoring service New Bag 07/01/2019 12:17 PM CDT 2 g 200 mL/hr New Bag 07/01/2019 12:28 AM CDT 2 g 200 mL/hr New 06/30/2019 1:41 PM CDT 2 g 200 mL/hr collagenase (SANTYL) ointment Topical, Daily, First dose on Mon07/01/19 at 1430, Until Discontinued, Bilateral lower extremity wounds: Cleanse wounds with saline and pat dry. Apply nickel-depth layer of santyl to wound bed, cover with dry bandage. Change daily and/or as needed for loosened/soiled bandage. Given 07/09/2019 9:30 AM CDT Given 07/08/2019 9:19 AM CDT Given 07/07/2019 8:38 AM CDT DAPTOmycin (CUBICIN) 600 mg in sodium chloride 0.9 % 100 mL IVPB 600 mg (rounded from 614 mg = 10 mg/kg ? 61.4 kg Adjusted weight), Intravenous, at 200 mL/hr, Every 24 hours, First dose on Mon07/03/19 at 1330, Until Discontinued 07/09/2019 3:55 PM CDT 600 mg 200 mL /hr New 07/08/2019 3:22 PM CDT 600 mg 200 mL/hr New Bag 07/07/2019 3:11 PM CDT 600 mg 200 mL/hr dextrose (GLUTOSE) 40 % oral gel 15-30 g 15-30 g, Oral, As needed, Low blood sugar, Starting on Mon06/30/19 at 0800, Until Mon07/09/19 at 1933, If patient is verbally responsive and taking thickened liquids or oral medications: Blood glucose less than 50 mg/dL - give 30 g (2 tubes), repeat until blood glucose reaches 70 mg/dL Blood glucose 50-69 mg/dL - give 15 g (1 tube), repeat until blood glucose reaches 70 mg/dL Given 07/01/2019 3:46 PM CDT 30 g Given 07/01/2019 6:25 AM CDT 30 g dextrose 10 % bolus infusion 125-250 mL 125-250 mL, Intravenous, Administer over 15 Minutes, As needed, Low Blood Sugar, Starting on Mon06/30/19 at 0800, Until Mon07/09/19 at 1933, If patient is verbally responsive and NPO or unable to swallow: Blood glucose less than 50 mg/dL - give 250 mL (25 g) and repeat until blood glucose reaches 70 mg/dL Blood glucose 50-69 mg/dL - give 125 mL (12.5 g) and repeat until blood glucose reaches 70 mg/dL If patient is verbally Unresponsive and NPO or unable to swallow: Blood glucose less than 70 mg/dL - give 250 mL (25 g), repeat until blood glucose reaches 70 mg/dL dextrose 50 % solution 1 dose, Starting on Mon06/30/19 at 0642, Until Mon06/30/19 at 0740, Created by cabinet override Given 06/30/2019 7:40 AM CDT 25 g enoxaparin (LOVENOX) 40 MG/0.4ML syringe 40 mg 40 mg, Subcutaneous, Once, 1 dose, On Mon06/28/19 at 2030, Administer by deep SubQ injection alternating between the left or right anterolateral and left or right posterolateral abdominal wall. Given 06/28/2019 8:41 PM CDT 40 mg Left Lower Abdomen enoxaparin (LOVENOX) 40 MG/0.4ML syringe 40 mg 40 mg, Subcutaneous, Nightly at bedtime, First dose on Mon06/29/19 at 2100, Until Discontinued, Administer by deep SubQ injection alternating between the left or right anterolateral and left or right posterolateral abdominal wall. Given 07/02/2019 9:04 PM CDT 40 mg Left Lower Abdomen Given 07/01/2019 9:07 PM CDT 40 mg Le ft Lower Abdomen Given 06/30/2019 10:16 PM CDT 40 mg L eft Lower Abdomen famotidine (PEPCID) tablet 20 mg 20 mg, Oral, Every 24 hours scheduled (Daily), First dose (after last reorder) on Mon06/28/19 at 2030, Until Discontinued, Per P&T protocol this has been renally adjusted Given 06/28/2019 8:41 PM CDT 20 mg glucagon injection 1 mg 1 mg, Intramuscular, Once as needed, Other, Low blood sugar, 1 dose, Starting on Mon06/30/19 at 0800, Until Mon07/09/19 at 1933, If patient is verbally UNresponsive and no IV access with blood glucose less than 70 mg/dL. Do NOT repeat administration. insulin glargine (LANTUS) injection 10 Units 10 Units, Subcutaneous, Nightly at bedtime, First dose (after last modification) on Mon06/30/19 at 2100, Until Discontinued Given 06/30/2019 10:17 PM CDT 10 Units Right Lower Abdomen insulin glargine (LANTUS) injection 15 Units 15 Units, Subcutaneous, Nightly at bedtime, First dose (after last modification) on Mon07/06/19 at 2100, Until Discontinued Given 07/08/2019 8:55 PM CDT 15 Units Left Lower Abdomen Given 07/07/2019 9:07 PM CDT 15 Units Le ft Lower Abdomen insulin glargine (LANTUS) injection 20 Units 20 Units, Subcutaneous, Nightly at bedtime, First dose on Mon06/28/19 at 2100, Until Discontinued Given 06/29/2019 9:33 PM CDT 20 Units Left Lower Abdomen Given 06/28/2019 8:40 PM CDT 20 Units Ri ght Lower Abdomen insulin glargine (LANTUS) injection 5 Units 5 Units, Subcutaneous, Nightly at bedtime, First dose on Mon07/03/19 at 2100, Until Discontinued Given 07/03/2019 9:57 PM CDT 5 Units Right Lower Abdomen insulin glargine (LANTUS) injection 8 Units 8 Units, Subcutaneous, Nightly at bedtime, First dose (after last modification) on Mon07/04/19 at 2100, Until Discontinued Given 07/05/2019 10:26 PM CDT 8 Units Right Lower Abdomen Given 07/04/2019 10:39 PM CDT 8 Units L eft Lower Abdomen insulin lispro (HUMALOG) injection 0-16 Units 0-16 Units, Subcutaneous, 3 times daily before meals, First dose on Mon06/28/19 at 2015, Until Discontinued, Blood Glucose (USUAL Dosing): [Less than 70:? Initiate Hypoglycemia Standing Orders] [71-140: ? 0 units] [141-180:? 4 units] [181-220:? 6 units] [221-260:? 8 units] [261-300:? 10 units] [301-350:? 12 units] [351-400:? 14 units] [Greater than 400:? 16 units and Call Physician] Given 07/09/2019 2:35 PM CDT 8 Units Left Lower Abdomen Given 07/08/2019 7:42 AM CDT 6 Units Le ft Lower Abdomen Given 07/07/2019 8:38 AM CDT 4 Units Le ft Lower Abdomen insulin lispro (HUMALOG) injection 0-8 Units 0-8 Units, Subcutaneous, Nightly at bedtime, First dose on Mon06/28/19 at 2100, Until Discontinued, Blood Glucose (USUAL Dosing): [Less than 70:? Initiate Hypoglycemia Standing Orders] [71-180:? 0 units] [181-220:? 3 units] [221-260:? 4 units] [261-300:? 5 units] [301-350:? 6 units] [351-400:? 7 units] [Greater than 400:? 8 units and Call Physician] Given 07/07/2019 9:07 PM CDT 3 Units Right Lower Abdomen Given 07/04/2019 10:38 PM CDT 4 Units L eft Lower Abdomen Given 07/03/2019 9:56 PM CDT 5 Units Ri ght Lower Abdomen insulin lispro (HUMALOG) injection 5 Units 5 Units, Subcutaneous, 3 times daily with meals, First dose on Mon07/05/19 at 1200, Until Discontinued, For sliding scale, activate Sliding Scale Insulin order set Given 07/06/2019 11:25 AM CDT 5 Units Left Arm Given 07/06/2019 8:31 AM CDT 5 Units Ri ght Arm Given 07/05/2019 3:44 PM CDT 5 Units Le ft Arm insulin lispro (HUMALOG) injection 8 Units 8 Units, Subcutaneous, 3 times daily with meals, First dose (after last modification) on Mon07/06/19 at 1700, Until Discontinued, For sliding scale, activate Sliding Scale Insulin order set Given 07/09/2019 2:34 PM CDT 8 Units Left Lower Abdomen Given 07/08/2019 6:14 PM CDT 8 Units Le ft Lower Abdomen Given 07/08/2019 12:43 PM CDT 8 Units R ight Arm insulin regular (NOVOLIN R/HUMULIN R) injection 8 Units 8 Units, Intravenous, Once, 1 dose, On Mon06/28/19 at 1630, For sliding scale, activate Sliding Scale Insulin order set. Given 06/28/2019 4:40 PM CDT 8 Units levothyroxine (SYNTHROID) tablet 50 mcg 50 mcg, Oral, Daily (levothyroxine), First dose on 06/29/19 at 0600, Until Discontinued, Avoid iron, calcium, and antacids within 4 hours of administration. Given 07/03/2019 4:53 AM CDT 5 0 mcg Given 07/02/2019 5:28 AM CDT 50 mcg Given 07/01/2019 6:25 AM CDT 50 mcg levothyroxine (SYNTHROID) tablet 75 mcg 75 mcg, Oral, Daily (levothyroxine), First dose (after last modification) on Chari 07/04/19 at 0600, Until Discontinued, Avoid iron, calcium, and antacids within 4 hours of administration. Given 07/09/2019 6:31 AM CDT 75 mcg Given 07/08/2019 6:36 AM CDT 75 mcg Given 07/07/2019 6:34 AM CDT 75 mcg naLOXone (NARCAN) injection 0.4 mg 0.4 mg, Intravenous, Once, 1 dose, On Mon06/28/19 at 1415 Given 06/28/2019 2:20 PM CDT 0.4 mg pantoprazole (PROTONIX) injection 40 mg 40 mg, Intravenous, 2 times daily, First dose on Mon07/03/19 at 1045, Until Discontinued, Reconstitute each 40 mg vial with 10 mL normal saline to a final concentration of 4 mg/mL. Administer intravenously over a period of a least 2 minutes. Given 07/09/2019 9:30 AM CDT 40 mg Given 07/08/2019 9:19 AM CDT 40 mg Given 07/07/2019 9:06 PM CDT 40 mg perflutren lipid microsphere (DEFINITY) injection 2 mL 2 mL, Intravenous, IMG once as needed, Contrast, 1 dose, Starting on Mon06/30/19 at 1259, Until Mon06/30/19 at 1240, Administer over 30-60 seconds. Follow with 10 mL saline flush. Given 06/30/2019 12:40 PM CDT 2 mLs polyethylene glycol (GLYCOLAX) packet 17 g 17 g, Oral, Daily, First dose (after last modification) on Mon07/08/19 at 1530, Until Discontinued, If both senna and polyethylene glycol are ordered, use 1st; if no response by next dosing interval, go to next option. Given 07/08/2019 3:29 PM CDT 17 g senna-docusate (SENOKOT-S) 8.6-50 MG tablet 1 tablet 1 tablet, Oral, 2 times daily, First dose on Mon07/08/19 at 2100, Until Discontinued Given 07/09/2019 9:30 A M CDT 1 tablet Given 07/08/2019 8:55 PM CDT 1 tablet sodium chloride 0.9% infusion at 125 mL/hr, Intravenous, Continuous, Starting on Mon06/28/19 at 1445, Until Mon06/29/19 at 0820 New Bag 06/28/2019 3:38 PM CDT 125 mL/hr sodium chloride 0.9% infusion at 75 mL/hr, Intravenous, Continuous, Starting on Mon06/28/19 at 2015, Until Mon06/30/19 at 0800 New Bag 06/29/2019 11:39 PM CDT 75 mL/hr New Bag 06/29/2019 4:29 AM CDT 75 mL/hr New Bag 06/28/2019 8:28 PM CDT 75 mL/hr sodium chloride 0.9% infusion at 10 mL/hr, Intravenous, Continuous, Starting on Mon07/03/19 at 1045, Until Mon07/04/19 at 1044, Infuse at TKO rate New Bag 07/03/2019 2:02 PM CDT 10 mLs 10 mL/hr sodium chloride 0.9% infusion at 50 mL/hr, Intravenous, Continuous, Starting on Mon07/05/19 at 1600, Until Mon07/05/19 at 2059, Post-Op New Bag 07/05/2019 4:01 PM CDT 50 mL/ hr vancomycin (VANCOCIN) 1,250 mg in sodium chloride 0.9 % 250 mL IVPB 1,250 mg, Intravenous, at 175 mL/hr, Every 12 hours, First dose (after last modification) on Mon07/02/19 at 1600, Until Discontinued, Per vancomycin P&T protocol 07/03/2019 4:53 AM CDT 1,250 mg 175 mL/hr 07/02/2019 4:23 PM CDT 1,250 mg 175 mL/hr vancomycin (VANCOCIN) 1,500 mg in sodium chloride 0.9 % 500 mL IVPB 1,500 mg, Intravenous, at 257.5 mL/hr, Once, 1 dose, On Mon06/28/19 at 1815 06/28/2019 9:50 PM CDT 1,500 mg 257.5 mL/hr vancomycin (VANCOCIN) 1,500 mg in sodium chloride 0.9 % 500 mL IVPB 1,500 mg, Intravenous, at 257.5 mL/hr, Every 24 hours, First dose on Mon06/29/19 at 2200, Until Discontinued 07/01/2019 9:51 PM CDT 1,500 mg 257.5 mL/hr 06/30/2019 10:17 PM CDT 1,500 mg 257.5 mL/hr 06/29/2019 9:37 PM CDT 1,500 mg 257.5 mL/hr documented in this encounter Active and Recently Administered Medications Times are shown in CDT. Scheduled Medication Order 07/07/2019 07/08/2019 07/09/2019 aspirin tablet 325 mg 325 mg, Oral, Daily, First dose (after last reorder) on Mon06/29/19 at 0900, Until Discontinued 837 (Given - Provider: Marti Estrada RN) 918 (Given - Provider: Marti Estrada RN) 929 (Given - Provider: Merle Srinivasan, SPENCER) atorvastatin (LIPITOR) tablet 40 mg 40 mg, Oral, Daily, First dose on Mon06/29/19 at 1600, Until Discontinued 837 (Given - Provider: Marti Estrada RN) 918 (Given - Provider: Marti Estrada RN) 929 (Given - Provider: Merle Srinivasan, RN) bisacodyl (DULCOLAX) suppository 10 mg (COMPLETED) 10 mg, Rectal, Once, 1 dose, On Mon07/08/19 at 1745 1815 (Given - Provider: Marti Estrada RN) collagenase (SANTYL) ointment Topical, Daily, First dose on Mon07/01/19 at 1430, Until Discontinued, Bilateral lower extremity wounds: Cleanse wounds with saline and pat dry. Apply nickel-depth layer of santyl to wound bed, cover with dry bandage. Change daily and/or as needed for loosened/soiled bandage. 0838 (Given - Provider: Marti Estrada RN) 09 (Given - Provider: Marti Estrada RN) 09 (Given - Provider: Merle Srinivasan, SPENCER) DAPTOmycin (CUBICIN) 600 mg in sodium chloride 0.9 % 100 mL IVPB 600 mg (rounded from 614 mg = 10 mg/kg ? 61.4 kg Adjusted weight), Intravenous, at 200 mL/hr, Every 24 hours, First dose on Mon07/03/19 at 1330, Until Discontinued 151 (New Bag - Provider: Marti Estrada RN)1541 (Infusion Stop Time - Provider: Marti Estrada RN) 1522 (New Bag - Provider: Marti Estrada RN)1623 (Infusion Stop Time - Provider: Marti Estrada RN) 1555 (New Bag - Provider: Merle Srinivasan RN - Comment: awaiting midline insertion)1704 (Infusion Stop Time - Provider: Merle Srinivasan RN) insulin glargine (LANTUS) injection 15 Units 15 Units, Subcutaneous, Nightly at bedtime, First dose (after last modification) on Mon07/06/19 at 2100, Until Discontinued 2106 (Given - Provider: Venkat Pak, SPENCER - Comment: no barcodes in pxyis) 2054 (Given - Provider: Venkat Pak RN - Comment: no barcodes in pxyis) insulin lispro (HUMALOG) injection 0-16 Units(Linked Group 1) 0-16 Units, Subcutaneous, 3 times daily before meals, First dose on Mon06/28/19 at 2015, Until Discontinued, Blood Glucose (USUAL Dosing): [Less than 70:? Initiate Hypoglycemia Standing Orders] [71-140: ? 0 units] [141-180:? 4 units] [181-220:? 6 units] [221-260:? 8 units] [261-300:? 10 units] [301-350:? 12 units] [351-400:? 14 units] [Greater than 400:? 16 units and Call Physician] 0838 (Given - Provider: Marti Estrada RN)1224 (Hold - Provider: Marti Estrada RN - Reason: Other)1646 (Hold - Provider: Marti Estrada RN - Reason: Other) 0742 (Given - Provider: Marti Estrada RN)1236 (Not Given - Provider: Marti Estrada RN - Reason: Order parameters not met - Comment: patient blood sugar 125)1814 (Not Given - Provider: Marti Estrada RN - Reason: Order parameters not met - Comment: blood sugar 120) 0814 (Not Given - Provider: Merle Srinivasan RN - Reason: Order parameters not met - Comment: blood sugar 86)1435 (Given - Provider: Merle Srinivasan RN)1600 (Canceled Entry - Provider: Automatic Discharge Provider - Comment: Automatically canceled at discontinue of medication order) insulin lispro (HUMALOG) injection 0-8 Units(Linked Group 1) 0-8 Units, Subcutaneous, Nightly at bedtime, First dose on Mon06/28/19 at 2100, Until Discontinued, Blood Glucose (USUAL Dosing): [Less than 70:? Initiate Hypoglycemia Standing Orders] [71-180:? 0 units] [181-220:? 3 units] [221-260:? 4 units] [261-300:? 5 units] [301-350:? 6 units] [351-400:? 7 units] [Greater than 400:? 8 units and Call Physician] 2106 (Given - Provider: Venkat Pak RN - Comment: no barcodes in pxyis. Blood sugar 201) 2054 (Not Given - Provider: Venkat Pak RN - Reason: Order parameters not met - Comment: blood sugar 144) insulin lispro (HUMALOG) injection 8 Units 8 Units, Subcutaneous, 3 times daily with meals, First dose (after last modification) on 07/06/19 at 1700, Until Discontinued, For sliding scale, activate Sliding Scale Insulin order set 0825 (Not Given - Provider: Marti Estrada RN - Reason: Order parameters not met - Comment: Patient blood sugar 159)1224 (Given - Provider: Marti Estrada RN)1733 (Given - Provider: Marti Estrada RN) 0743 (Given - Provider: Marti Estrada RN)1243 (Given - Provider: Marti Estrada RN)1814 (Given - Provider: Marti Estrada RN) 0815 (Not Given - Provider: Merle Srinivasan RN - Reason: Other - Comment: blood sugar 86)1434 (Given - Provider: Merle Srinivasan RN)1700 (Canceled Entry - Provider: Automatic Discharge Provider - Comment: Automatically canceled at discontinue of medication order) levothyroxine (SYNTHROID) tablet 75 mcg 75 mcg, Oral, Daily (levothyroxine), First dose (after last modification) on Chari 07/04/19 at 0600, Until Discontinued, Avoid iron, calcium, and antacids within 4 hours of administration. 0634 (Given - Provider: Lexus Metcalf RN) 0636 (Given - Provider: Venkat Pak RN) 0631 (Given - Provider: Venkat Pak, SPENCER) pantoprazole (PROTONIX) injection 40 mg 40 mg, Intravenous, 2 times daily, First dose on 07/03/19 at 1045, Until Discontinued, Reconstitute each 40 mg vial with 10 mL normal saline to a final concentration of 4 mg/mL. Administer intravenously over a period of a least 2 minutes. 0838 (Given - Provider: Marti Estrada RN)2106 (Given - Provider: Venkat Pak RN) 0919 (Given - Provider: Marti Estrada RN)2305 (Not Given - Provider: Venkat Pak RN - Reason: Loss of IV access) 0930 (Given - Provider: Merle Srinivasan RN) polyethylene glycol (GLYCOLAX) packet 17 g 17 g, Oral, Daily, First dose (after last modification) on Mon07/08/19 at 1530, Until Discontinued, If both senna and polyethylene glycol are ordered, use 1st; if no response by next dosing interval, go to next option. 1529 (Given - Provider: Marti Estrada RN) 0931 (Not Given - Provider: Merle Srinivasan, SPENCER - Reason: Patient/family declined) senna-docusate (SENOKOT-S) 8.6-50 MG tablet 1 tablet 1 tablet, Oral, 2 times daily, First dose on Mon07/08/19 at 2100, Until Discontinued 2054 (Given - Provider: Venkat Pak, SPENCER) 09 (Given - Provider: Merle Srinivasan, SPENCER) PRN Medication Order 07/07/2019 07/08/2019 07/09/2019 acetaminophen (TYLENOL) tablet 650 mg 650 mg, Oral, Every 4 hours PRN, Mild pain (Scale 1 - 3), Starting on Mon06/28/19 at 1959, Until Mon07/09/19 at 193, Maximum dose of acetaminophen is 4000 mg from all sources in 24 hours. dextrose (GLUTOSE) 40 % oral gel 15-30 g 15-30 g, Oral, As needed, Low blood sugar, Starting on Mon06/30/19 at 0800, Until Mon07/09/19 at 193, If patient is verbally responsive and taking thickened liquids or oral medications: Blood glucose less than 50 mg/dL - give 30 g (2 tubes), repeat until blood glucose reaches 70 mg/dL Blood glucose 50-69 mg/dL - give 15 g (1 tube), repeat until blood glucose reaches 70 mg/dL dextrose 10 % bolus infusion 125-250 mL 125-250 mL, Intravenous, Administer over 15 Minutes, As needed, Low Blood Sugar, Starting on Mon06/30/19 at 0800, Until Mon07/09/19 at 1933, If patient is verbally responsive and NPO or unable to swallow: Blood glucose less than 50 mg/dL - give 250 mL (25 g) and repeat until blood glucose reaches 70 mg/dL Blood glucose 50-69 mg/dL - give 125 mL (12.5 g) and repeat until blood glucose reaches 70 mg/dL If patient is verbally Unresponsive and NPO or unable to swallow: Blood glucose less than 70 mg/dL - give 250 mL (25 g), repeat until blood glucose reaches 70 mg/dL glucagon injection 1 mg 1 mg, Intramuscular, Once as needed, Other, Low blood sugar, 1 dose, Starting on Mon06/30/19 at 0800, Until Mon07/09/19 at 193, If patient is verbally UNresponsive and no IV access with blood glucose less than 70 mg/dL. Do NOT repeat administration. nitroglycerin (NITROSTAT) SL tablet 0.4 mg 0.4 mg, Sublingual, Every 5 min PRN, Chest Pain, Starting on Mon06/28/19 at 195, Until Mon07/09/19 at 193 ondansetron (ZOFRAN) injection 4 mg 4 mg, Intravenous, Every 8 hours PRN, Nausea, Vomiting, Starting on Mon06/28/19 at 195, Until Mon07/09/19 at 1932, IV push over 2-5 minutes. Linked Groups Order Group 1: insulin lispro (HUMALOG) injection 0-16 UnitsJump to med 0-16 Units, Subcutaneous, 3 times daily before meals, First dose on Mon06/28/19 at 2015, Until Discontinued, Blood Glucose (USUAL Dosing): [Less than 70:? Initiate Hypoglycemia Standing Orders] [71-140: ? 0 units] [141-180:? 4 units] [181-220:? 6 units] [221-260:? 8 units] [261-300:? 10 units] [301- 350:? 12 units] [351-400:? 14 units] [Greater than 400:? 16 units and Call Physician] And insulin lispro (HUMALOG) injection 0-8 UnitsJump to med 0-8 Units, Subcutaneous, Nightly at bedtime, First dose on Mon06/28/19 at 2100, Until Discontinued, Blood Glucose (USUAL [...] documented as of this encounter Care Teams Automation Qtp Tester Relationship Specialty Start Date End Date Don Branham MD [address] [place] [address] PCP - General EMERGENCY MEDICINE 05/10/19 Annamaria Swanson MD INTERNAL MEDICINE 12/10/18 documented as of this encounter
--- OUTSIDE RECORDS SUMMARY | 2024-02-26 21:25 | XMS_ITS | Encounter Summary ---
Author Organization [facility] Address [address] [place] [address]. [place], [place] [address] [place] [address] Care Team Providers Care Circulation Tender Name Role Phone Damon Swanson MD Unavailable [phone] Don Branham MD Primary Care Provider [phone] Reason for Referral * Imaging (Routine) - Closed Specialty Diagnoses / Procedures Referred By Leif hilton Referred To Contact RADIOLOGY Diagnoses PVD (peripheral vascular disease) (CMS/HCC) Procedures XA AIF ANGIOGRAM Khalif Dang MD [address] [address] Phone: tel: fax: [place] [address] Phone: tel: Referral ID Status Reason Start Date Expiration Date Visits Re quested Visits Authorized [id number] Closed 07/05/2019 08/01/2020 1 1 Reason for Visit * Auth/Cert Specialty Diagnoses / Procedures Referred By Leif hilton Referred To Contact Diagnoses Encephalopathy Elevated troponin Encephalopathy acute Encephalopathy acute Referral ID Status Reason Start Date Expiration Date Visits Re quested Visits Authorized [id number] 1 1 Encounter Details Date Type Department Care Team (Late st Contact Info) Description 07/05/2019 12:48 PM CDT - 07/05/2019 11:59 PM CDT Hospital Encounter [facility] Senior Radiation Protection [place] [address] Khalif Dang MD [facility]. [address] [place], [place] [id number] Discharge Disposition: Home or Self Care (Routine Discharge) Social History Tobacco Use Types Packs/Day Years [...] Sign Reading Time Taken Comments Blood Pressure 122/57 07/05/2019 3:19 PM CDT Pulse 71 07/05/2019 3:19 PM CDT Temperature - - Respiratory Rate 11 07/05/2019 3:19 PM CDT Oxygen Saturation 100% 07/05/2019 2:40 PM CDT Inhaled Oxygen Concentration - - Weight - [...] Author Status Yes 06/29/2019 12:55 PM CDT oLree Chappell RN Active documented as of this encounter Mental Status * Because of a physical, mental, or emotional condition, do you have serious difficulty concentrating, remembering, or making decisions? Answer Entry Date Author Status Yes 06/29/2019 12:55 PM CDT Loree Chappell RN Active documented in this encounter Medications at Time [...] for 10 days. 15 g 07/10/2019 0 insulin glargine (LANTUS SOLOSTAR) 100 UNIT/ML injection (PEN) Inject 20 Units into the skin nightly at bedtime. 6 mL 06/07/2019 0 sodium chloride 0.9 % SOLN 100 mL with DAPTOmycin 500 MG SOLR 625 mg Inject 625 mg into the vein daily. Through 07/16 1 ampule 07/09/2019 0 documented as of this encounter Plan of Treatment Pending Results Name Type Priority Associated Diagnoses Date /Time XA AIF ANGIOGRAM Cardiac Cath Routine PVD (peripheral vascular disease) 07/05/2019 2:20 PM CDT Scheduled Orders Name Type Priority Associated Diagnoses Orde r Schedule XA AIF ANGIOGRAM Cardiac Cath Routine PVD (peripheral vascular disease) 1 Occurrences starting 07/05/2019 until 07/05/2019 documented as of this encounter Visit Diagnoses Diagnosis PVD (peripheral vascular disease) ([facility]/HCC) Peripheral vascular disease, unspecified documented in this encounter Administered Medications Inactive Administered Medications - up to 3 most recent administrations Medication Order MAR Action Action Date Dose Rate Site heparin (porcine) 1000 UNIT/ML injection 1 dose, Starting on Mon07/05/19 at 1255, Until Mon07/05/19 at 1340, Created by cabinet override, Intra-Op Given 07/05/2019 1:40 PM CDT 5,000 Units Heparin (Porcine) 1000-0.9 UT/500ML-% infusion 1 dose, Starting on Mon07/05/19 at 1242, Until Mon07/05/19 at 1330, Created by cabinet override, Intra-Op New Bag 07/05/2019 1:30 PM CDT 1,000 Units lidocaine (XYLOCAINE) 1 % injection SOLN 1 dose, Starting on Mon07/05/19 at 1242, Until Mon07/05/19 at 1329, Created by cabinet override, Intra-Op Given 07/05/2019 1:29 PM CDT 20 mLs protamine 10 MG/ML injection 1 dose, Starting on Mon07/05/19 at 1426, Until Mon07/05/19 at 1427, Created by cabinet override, Intra-Op Given 07/05/2019 2:27 PM CDT 15 mg documented in this encounter Additional Health Concerns Infection Onset Date Last Indicated Resolved Time MRSA Comment:MRSA Blood Identified 06/28/2019 06/28/2019 07/01/2019 documented as of this encounter Care Teams Circulation Tender Relationship Specialty Start Date End Date Don Branham MD [address] [place] [address] PCP - General EMERGENCY MEDICINE 05/10/19 Damon Swanson MD INTERNAL MEDICINE 12/10/18 documented as of this encounter
--- OUTSIDE RECORDS SUMMARY | 2024-02-26 21:25 | XMS_ITS | Encounter Summary ---
Author Organization [facility] Address [address] [place] [address]. [place] [address] [place] [address] Care Team Providers Care Transportation Operations Manager Name Role Phone Damon Swanson MD Unavailable [phone] Rick Glez MD Primary Care Provider [phone] Reason for Visit * Reason Comments Leg Ulcer Encounter Details Date Type Department Care Team (Late st Contact Info) Description 02/21/2019 2:15 PM FINANCIAL SPECIALIST Office Visit [facility] [address] [place], [place] [id number] Khalif Dang MD [facility]. [facility] [address] [place], [place] [id number] Leg Ulcer Social History Tobacco Use Types Packs/Day Years Used Date Smoking Tobacco: Never Smokeless Tobacco: Never Alcohol Use Standard Drinks/Week Comments No 0 (1 standard drink = 0.6 oz pur e alcohol) AUDIT-C Answer Date Recorded Frequency of Alcohol Consumption Never 12/10/2018 Average Number of Drinks Not on file 019 Frequency of Binge Drinking Not on file 11/13 Comments Unknown Sex and Gender Information Value Date Recorded Sex Assigned at Not on file Legal Sex Female 6:54 PM CDT Gender Identity Not on file Sexual Orientation Not on file documented as of this encounter Last Filed Vital Signs Vital Sign Reading Time Taken Comments Blood Pressure 110/62 02/21/2019 3:26 PM FINANCIAL SPECIALIST Pulse 93 02/21/2019 3:26 PM FINANCIAL SPECIALIST Temperature - - Respiratory Rate - - Oxygen Saturation - - Inhaled Oxygen Concentration - - Weight 87.5 kg (193 lb) 02/21/2019 3:26 PM FINANCIAL SPECIALIST Height 157.5 cm (5' 2 ) 02/21/2019 3:26 PM FINANCIAL SPECIALIST Body Mass Index 35.3 02/21/2019 3:26 PM FINANCIAL SPECIALIST documented in this encounter Patient Instructions * Patient Instructions* Neena Alfaro - 02/21/2019 2:15 PM FINANCIAL SPECIALIST Images from the original note were not included. Patient Education Patient Education Atherosclerosis The Basics Written by the doctors and editors at [facility] What is atherosclerosis???--??Atherosclerosis is a condition in which fatty deposits called plaques build up inside the arteries in the body. Arteries are the blood vessels that carry blood away from the heart out to the body. Atherosclerosis is the reason most people have a heart attack or a stroke. Atherosclerosis can affect arteries all over the body. There are different names for atherosclerosis depending on which arteries it affects. ?? Carotid artery disease is a form of atherosclerosis that affects the carotid arteries, which bring blood to the brain (figure 1). This form of atherosclerosis can lead to stroke. ?? Coronary artery disease, also called coronary heart disease, is a form of atherosclerosis that affects the coronary arteries, which bring blood to the heart muscle. This form of atherosclerosis can cause chest pain and lead to heart attack (figure 2). ?? Renal artery stenosis is a form of atherosclerosis that affects the renal arteries, which bring blood to the kidneys. This form of atherosclerosis can cause high blood pressure or lead to kidney disease. ?? Peripheral artery disease is a form of atherosclerosis that affects the arteries that bring blood to the arms and legs (figure 3). People with this condition sometimes have pain, tingling, or numbness in their legs when they walk. How does atherosclerosis cause heart attacks, strokes, and other problems???--??Atherosclerosis-related plaques can cause problems in 2 ways: ?? Plaques can get too big and reduce blood flow to certain body parts (figure 4). This can cause symptoms (such as pain) in the part of the body that is not getting enough blood. ?? Plaques can break open, or rupture. When that happens, blood clots form inside the artery and block the blood supply to tissues past the clot. This is what happens during a stroke or a heart attack (figure 2). Who is at risk for atherosclerosis???--??A person has a higher chance of getting atherosclerosis ifhe or she: ?? Has a high cholesterol or triglycerides (triglycerides are a type of fat found in blood) ?? Has high blood pressure ?? Has diabetes ?? Smokes ?? Has an unhealthy diet ?? Is overweight or does very little physical activity ?? Has a mother or father who got atherosclerosis before the age of 50 years Will I need tests???--??Maybe. Aside from a physical exam, doctors do not typically order tests to check for atherosclerosis. Instead, they order tests if they think a patient might have a specific form of atherosclerosis, such as coronary heart disease or peripheral artery disease. The tests for each of these conditions are all very different. A test called a lipid profile is often done in people who might have atherosclerosis. This is a blood test that measures the amounts of different forms of fat and cholesterol. The level of LDL-cholesterol, also called bad cholesterol, is the most important. Can the problems caused by atherosclerosis be prevented???--??Yes. To reduce your chances of havinga heart attack, stroke, or related problem, do the following: ?? Take the medicines your doctor prescribes to treat high blood pressure, high cholesterol, and toprevent clots. ?? Lose weight (if you are overweight). ?? Choose a diet rich in fruits, vegetables, and low-fat dairy products. Don't eat a lot of meats, sweets, or refined grains. ?? Do something active for at least 30 minutes a day on most days of the week. ?? Quit smoking (if you smoke). Ask your doctor for help. ?? Limit the amount of alcohol you drink. Have no more than 2 drinks a day if you are a man. Have no more than 1 drink a day if you are a woman. All topics are updated as new evidence becomes available and our peer review process is complete. This topic retrieved from [employer] on: Oct 24, 2018. Topic 58741 Version 7.0 Release: 27.3.2 - C27.227 ?2019??[employer]. and/or its affiliates.??All rights reserved. figure 1: Carotid artery disease In people with carotid artery disease, fatty deposits called plaques build up inside the artery zamora. These plaques can break open and cause blood clots to form, and that can lead to stroke. Graphic 11285 Version 2.0 figure 2: Heart attack Plaques inside the coronary arteries sometimes break open or rupture. This is what causes most heart attacks. When a plaque breaks open, it causes a blood clot to form inside the artery. As the clot grows, it can completely block off the flow of blood through the artery. That means that the tissue on the other end of the clogged artery does not get the blood and oxygen it needs, so it gets damaged or dies. Graphic 84051 Version 6.0 figure 3: Peripheral artery disease Graphic 00195 Version 6.0 figure 4: Atherosclerosis Atherosclerosis is a condition in which fatty deposits called plaques build up in the lining of the blood vessels. As plaques get bigger, the blood vessels get narrow. This means the blood vessels cannot carry as much blood as before. Graphic 04560 Version 1.0 Consumer Information Use and Disclaimer This information is not specific medical advice and does not replace information you receive from your health care provider. This is only a brief summary of general information. It does NOT include all information about conditions, illnesses, injuries, tests, procedures, treatments, therapies, discharge instructions or life-style choices that may apply to you. You must talk with your health care provider for complete information about your health and treatment options. This information should not be used to decide whether or not to accept your health care provider's advice, instructions or recommendations. Only your health care provider has the knowledge and training to provide advice that is right for you.The use of [employer] content is governed by the [employer] Terms of Use. ??2019 [employer]. All rights reserved. Copyright ?2019??[employer]. and/or its affiliates.??All rights reserved. NCIAL SPECIALIST documented in this encounter Progress Notes * Khalif Dang MD - 02/21/2019 2:15 PM CST Reason for Visit: Left lower extremity wound History of Present Illness: This is a 64-year-old female who presents with a left lower extremity wound. The patient has a history significant for diabetes mellitus. Noninvasive vascular testing was negative for venous insufficiency of the left lower extremity. The patient's ankle-brachial index onthe left was artificially elevated at the posterior tibial artery due to vascular calcification. The left anterior tibial ankle-brachial index was 0.76. The waveforms were noted to be mono phasic andbiphasic on the left. MRI of the left tibia and fibula was negative for osteomyelitis. The patient has been seen at the wound clinic. The patient reports the wound appears to be healing slowly. She denies symptoms of intermittent claudication or ischemic rest pain. Recommendations and Plan: The patient has peripheral vascular disease but no venous insufficiency of the left lower extremity. Per patient report, the wound is healing slowly. Continue current wound care. If the wound fails to heal within the next 2 months, the patient will likely need to be scheduled for arteriogram and possible intervention. Medications: Current Outpatient Medications: ??? acetaminophen 500 MG tablet, Take 1,000 mg by mouth daily as needed for Pain. Indications: Pain, Disp: , Rfl: ??? atorvastatin 80 MG tablet, Take 80 mg by mouth daily. Indications: High Amount of Cholesterol in the Blood, Disp: , Rfl: ??? cefdinir 300 MG Cap capsule, Take 1 capsule (300 mg total) by mouth 2 (two) times daily., Disp:20 capsule, Rfl: 0 ??? levothyroxine 25 MCG tablet, Take 25 mcg by mouth daily. Indications: Underactive Thyroid, Disp: , Rfl: ??? metFORMIN 500 MG tablet, Take 1 tablet (500 mg total) by mouth 2 (two) times daily with meals. (Patient taking differently: Take 1 tablet by mouth 2 (two) times daily with meals. Indications: Diabetes), Disp: 60 tablet, Rfl: 0 ??? valsartan 160 MG tablet, Take 160 mg by mouth daily. Indications: High Blood Pressure Disorder,heart failure, Disp: , Rfl: Allergies Allergen Reactions ??? Codeine Nausea and Vomiting Past Medical History: Diagnosis Date ??? Cancer (CMS/HCC) breast ??? Diabetes mellitus (CMS/HCC) ??? Disease of thyroid gland ??? Hypertension Past Surgical History: Procedure Laterality Date ??? BREAST SURGERY Bilateral ??? KNEE SURGERY Right ??? REMOVAL OF OVARY(S) Left ??? UPPER ARM/ELBOW SURGERY UNLISTED Right Social History Tobacco Use ??? Smoking status: Never Smoker ??? Smokeless tobacco: Never Used Substance Use Topics ??? Alcohol use: No Frequency: Never ??? Drug use: No No family history on file. No family status information on file. Review of Systems Constitutional: Negative. HENT: Negative. Eyes: Negative. Cardiovascular: Positive for leg swelling.Negative for claudication. Gastrointestinal: Negative. Genitourinary: Negative. Musculoskeletal: Positive for myalgias and joint stiffness/pain. Skin: Negative. Neurological: Positive for tingling/numbness. Endo/Heme/Allergies: Negative. Psychiatric/Behavioral: Negative. All other systems reviewed and are negative. Filed Vitals: 02/21/19 1526 BP: 110/62 Pulse: 93 Weight: 87.5 kg (193 lb) Height: 5' 2 (1.575 m) Body mass index is 35.3 kg/m??. Physical Exam Rate/Rhythm: normal rate . Heart Sounds: . PMI: . Pulses: Left DP pulses 0, Left PT Pulses 0, Edema Right: 1+. , Constitutional: healthy appearance not distressed. . Neck: neck supple no JVD. . Pulmonary/Chest Wall: effort normal . HEENT: no nasal discharge. . Abdomen: abdomen soft and bowel sounds normal No distention. . Eyes: conjunctivae normal. Neurological: alert and intact cranial nerves, . Skin: Left leg wound. Musculoskeletal: no kyphosis and no tenderness Cardiovascular Comments: Diagnoses/Impression: 1. Ulcer of lower limb, left, limited to breakdown of skin (CMS/HCC) 2. Peripheral vascular disease (CMS/HCC) Referring Provider: Cecilio Aldrich PCP: RICK GLEZ MD NCIAL SPECIALIST documented in this encounter Plan of Treatment Not on file documented as of this encounter Visit Diagnoses Diagnosis Ulcer of lower limb, left, limited to breakdown of skin (CMS/HCC [facility]/HCC)- Primary Peripheral vascular disease (CMS/HCC) Peripheral vascular disease, unspecified documented in this encounter Care Teams Transportation Operations Manager Relationship Specialty Start Date End Date Rick Glez MD [address] [place] [address] PCP - General INTERNAL MEDICINE 02/10/19 05/09/19 Damon Swanson MD INTERNAL MEDICINE 12/10/18 documented as of this encounter
--- OUTSIDE RECORDS SUMMARY | 2024-02-26 21:25 | XMS_ITS | Encounter Summary ---
Author Organization [facility] Address [address] [place] [address]. [place] [address] [place] [address] Care Team Providers Care Statistical Analyst Name Role Phone Damon Swanson MD Unavailable [phone] Kimberley Durant MD Primary Care Provider Encounter Details Date Type Department Care Team (Late st Contact Info) Description 02/26/2019 [facility] at [address] [address] Scanned, Documents Social History Tobacco Use Types Packs/Day Years [...] on file documented as of this encounter Plan of Treatment Not on file documented as of this encounter Visit Diagnoses Not on filedocumented in this encounter Care Teams Statistical Analyst Relationship Specialty Start Date End Date Kimberley Durant MD [address] [place] [id number] PCP - General INTERNAL MEDICINE 02/10/19 05/09/19 Damon Swanson MD INTERNAL MEDICINE 12/10/18 documented as of this encounter
--- OUTSIDE RECORDS SUMMARY | 2024-02-26 21:25 | XMS_ITS | Encounter Summary ---
Author Organization [facility] Address [address] [place] [address]. [place] [address] [place] [address] Care Team Providers Care Bacteriology Teacher Name Role Phone Damon Swanson MD Unavailable [phone] Kimberley Durant MD Primary Care Provider [phone] Encounter Details Date Type Department Care Team (Late st Contact Info) Description 02/12/2019 2:45 PM MACHINIST FIRST CLASS Office Visit [facility] [address] [place] [address] Babar Sullivan MD Social History Tobacco Use Types Packs/Day [...] Procedure Name Priority Date/Time Associated Diagnosis Comments PATHOLOGY Routine 02/12/2019 12:00 AM MACHINIST FIRST CLASS Ulcer of lower extremity, limited to breakdown of skin, unspecified laterality ([facility]/HCC [facility]/HCC) documented in this encounter Results * CULTURE, WOUND, W/GRAM STAIN (02/12/2019 5:22 PM MACHINIST FIRST CLASS) SPEC DESCRIPTION LEG,LEFT 02/12/2019 5:23 PM MACHINIST FIRST CLASS [facility] SPECIAL REQUESTS NO SPECIAL REQUEST 02/12/2019 5:23 PM [facility] GRAM STAIN RESULT NO WHITE BLOOD CELLS SEEN 02/13/2019 9:05 AM [facility] GRAM STAIN RESULT RARE RED BLOOD CELLS SEEN 02/13/2019 9:05 AM [facility] GRAM STAIN RESULT NO ORGANISMS SEEN 02/13/2019 9:05 AM [facility] CULTURE RESULT NO GROWTH 3 DAYS 02/15/2019 9:05 AM [facility] CULTURE RESULT NOTE: WOUND AND TISSUE CULTURES ARE ROUTINELY SCREENED FOR AEROBIC ORGANISMS ONLY. 02/15/2019 9:05 AM [facility] STRUCTURE OF LEFT LOWER LIMB / Unknown 02/12/2019 5:22 PM MACHINIST FIRST CLASS 02/12/2019 5:44 PM MACHINIST FIRST CLASS us Babar Sullivan MD MICROBIOLOGY - GENERAL ORDERABLE S Final Result [facility] [address] [place] [place] [address], * PATHOLOGY (02/12/2019 12:00 AM MACHINIST FIRST CLASS) COPATH REPORT ? [facility] ? [address] ? [place], [place] ??[address] ? [id number] ? Department of Pathology ? Pathology Report ? SURGICAL FINAL REPORT Patient Name: IRIS GIL ? : 1955 (Age: 64) ? Location: [facility] Gender: F ?Collected Date: 02/12/2019 Med Rec #: [id number] ?Date Received: 02/13/2019 Date Reported: 02/14/2019 Provider: BABAR SULLIVAN MD Specimen(s) lesion, left lower extremity Final Pathologic Diagnosis LEFT LOWER EXTREMITY, LESION, BIOPSY: ? TRANSECTED SKIN WITH HYPERKERATOSIS (SEE COMMENT) COMMENT The biopsy is superficial and shows little underlying dermis. ??The dermis present shows collections of vessels suggestive of granulation tissue. ??The histologic findings are not specific. ??Deeper levels are examined and reveal the same. ?? Electronically Signed Out ? SANDER BRENNAN MD Pathologist ATH:lc Microscopic Description: Deeper levels are examined. ?? Clinical History Ulcer of lower extremity limited to breakdown of skin, unspecified laterality Gross Description The specimen is received in a single formalin-filled container labeled with the patient's name (Iris Gil), (1955), and LLE. ??The specimen consists of a white-islas to dark brown, rubbery, ovoid, unoriented skin shave biopsy specimen measuring 0.8 x 0.4 x 0.2 cm. ??The skin surface is white-islas, smooth and focally granular along one aspect. ??The granular area measures 0.2 x 0.2 cm and grossly abuts the nearest resection margin. ??The deep resection margin is entirely inked black, and the specimen is trisected. ??The specimen is entirely submitted histowrapped in one cassette. : Billing Fee Code(s): [address] [facility] 02/12/2019 02/13/2019 7:5 6 AM MACHINIST FIRST CLASS Comment:LESION, LEFT LOWER E XTREMITY Babar Sullivan MD PATHOLOGY/CYTOLOGY ORDERABLES Fi nal Result [facility] [address] [place] [address], documented in this encounter Visit Diagnoses Diagnosis Ulcer of lower extremity, limited to breakdown of skin, unspecified laterality (CMS/HCC [facility]/HCC)- Primary documented in this encounter Care Teams Bacteriology Teacher Relationship Specialty Start Date End Date Kimberley Durant MD [address] [place] [address] PCP - General INTERNAL MEDICINE 02/10/19 05/09/19 Damon Swanson MD INTERNAL MEDICINE 12/10/18 documented as of this encounter
--- OUTSIDE RECORDS SUMMARY | 2024-02-26 21:25 | XMS_ITS | Encounter Summary ---
Author Organization [facility] Address [address] [place] [address]. [place] [address] [place] [address] Care Team Providers Care Forestry Instructor Name Role Phone Damon Swanson MD Unavailable [phone] Kimberley Durant MD Primary Care Provider [phone] Encounter Details Date Type Department Care Team (Latest Contact Info) Description 02/12/2019 5:22 PM SENIOR REPORT DEVELOPER - 02/12/2019 11:59 PM [facility] Hospital Encounter [facility] [place] [address] Babar Sullivan MD Discharge Disposition: Home or Self Care (Routine [...] on file documented as of this encounter Medications at Time of Discharge acetaminophen 500 MG tabletIndications: Pain Take 1,000 mg by mouth daily as needed for Pain. Indications: Pain 12/11/2018 0 atorvastatin 80 MG tabletIndications: Hypercholesterolem ia Take 80 mg by mouth daily. Indications: High Amount of Cholesterol in the Blood 11/29/2018 0 cefdinir 300 MG Cap capsuleIndications :Chronic venous hypertension (idiopathic) with ulcer and inflammation of bilateral lower extremity (CODE) ([facility] HHS/HCC),Diabetic leg ulcer ([facility] HHS/HCC) Take 1 capsule (300 mg total) by mouth 2 (two) times daily. 20 capsule 12/28/2018 0 levothyroxine 25 MCG tabletIndications: Hypothyroidism Take 25 mcg by mouth daily. Indications: Underactive Thyroid 11/29/2018 0 metFORMIN 500 MG tablet [The details of the medication are not available because there are pending changes by a home health clinician.] 60 tablet 12/10/2018 0 valsartan 160 MG tabletIndications: Hypertension,heart failure Take 160 mg by mouth daily. Indications: High Blood Pressure Disorder, heart failure 11/29/2018 0 documented as of this encounter Plan of Treatment Not on file documented as of this encounter Procedures Procedure Name Priority Date/Time Associated Diagnosis Comments CULTURE, WOUND, W/GRAM STAIN Routine 02/12/2019 5:22 PM SENIOR REPORT DEVELOPER Ulcer of lower extremity, limited to breakdown of skin, unspecified laterality ([facility] HHS/[facility]) documented in this encounter Results * CULTURE, WOUND, W/GRAM STAIN (02/12/2019 5:22 PM SENIOR REPORT DEVELOPER) SPEC DESCRIPTION LEG,LEFT 02/12/2019 5:23 PM SENIOR REPORT DEVELOPER [facility] SPECIAL REQUESTS NO SPECIAL REQUEST 02/12/2019 5:23 PM SENIOR REPORT DEVELOPER [facility] GRAM STAIN RESULT NO WHITE BLOOD CELLS SEEN 02/13/2019 9:05 AM SENIOR REPORT DEVELOPER [facility] GRAM STAIN RESULT RARE RED BLOOD CELLS SEEN 02/13/2019 9:05 AM [facility] GRAM STAIN RESULT NO ORGANISMS SEEN 02/13/2019 9:05 AM [facility] CULTURE RESULT NO GROWTH 3 DAYS 02/15/2019 9:05 AM [facility] CULTURE RESULT NOTE: WOUND AND TISSUE CULTURES ARE ROUTINELY SCREENED FOR AEROBIC ORGANISMS ONLY. 02/15/2019 9:05 AM SENIOR REPORT DEVELOPER [facility] STRUCTURE OF LEFT LOWER LIMB / Unknown 02/12/2019 5:22 PM SENIOR REPORT DEVELOPER 02/12/2019 5:44 PM SENIOR REPORT DEVELOPER Babar Sullivan MD MICROBIOLOGY - GENERAL ORDERABLE S Final Result [facility] [address] [place] [address], documented in this encounter Visit Diagnoses Diagnosis Ulcer of lower extremity, limited to breakdown of skin, unspecified laterality ([facility]) documented in this encounter Care Teams Forestry Instructor Relationship Specialty Start Date End Date Kimberley Durant MD [address] [place] [id number] PCP - General INTERNAL MEDICINE 02/10/19 05/09/19 Damon Swanson MD INTERNAL MEDICINE 12/10/18 documented as of this encounter
--- OUTSIDE RECORDS SUMMARY | 2024-02-26 21:25 | XMS_ITS | Encounter Summary ---
Author Organization [facility] Address [address] [place] [address]. [place] [address] [place] [address] Care Team Providers Care Program Control Analyst Name Role Phone Damon Swanson MD Unavailable [phone] Don Branham MD Primary Care Provider [phone] Reason for Visit * Auth/Cert Specialty Diagnoses / Procedures Referred By Contac t Referred To Contact Diagnoses Encephalopathy Elevated troponin Encephalopathy acute Encephalopathy acute Referral ID Status Reason Start Date Expiration Date Visits Re quested Visits Authorized [id number] 1 1 Encounter Details Date Type Department Care Team (Late st Contact Info) Description 07/04/2019 1:24 PM CDT Anesthesia Event [facility] [employer] [place], [place] [id number] Racquel Cisneros MD [address] [id number] Anesthesia Record Procedure Summary Procedure Name Responsible Anesthesiologist Anesthesia Start Time Anesthesia Stop Time USE TRANSESOPHAGEAL ECHO Racquel Ness MD 07/04/19 1324 07/04/19 1406 Events Date Time Event Comment 07/04/2019 1247 Start Out of OR Vitals 1304 AN HYDROPULPER OPERATOR Prepped 1314 1314 AN Anesthesia Prepped 1324 An Start Patient ID and consent checked and patient reassessed. 1335 Face Mask Applied POM mask 1336 An Induction 1338 Anesthesia Ready 1338 AN STAR 1359 An Emergence 1405 Face Mask Removed 1406 Stop Out of OR Vitals 1406 Post Anesthetic Care Handoff I completed my handoff to the receiving nurse during which we: 1. Identified the patient 2. Identified the responsible provider 3. Reviewed the pertinent medical history 4. Discussed the surgical course 5. Reviewed intra-op anesthesia management and issues during anesthesia 6. Set expectations for post-procedure period 7. Allowed opportunity for questions and acknowledgement of understanding. 1406 An Stop Meds Name Total propofol (DIPRIVAN) 200 mg/20 mL injecti on 130 mg lidocaine (PF) (XYLOCAINE) 2% injection 100 mg sodium chloride 0.9% infusion 300 mL * Agents Name Ancillary O2 * Blood No blood administrations on file. Lines, Drains, and Airways Type Details Placement Removal Wound 06/28/19; 015; Leg; Posterior, Proximal, Right, Upper; Pressure ulcer/injury; Unstagable 06/28/19 015 by Sharon Nixon RN Kaplan Catheter 06/28/19; 180; No; Decubitus - Stage 3 or 4 Sacral or perineal pressure ulcer; 1; Hand hygiene performed, Site cleansed with sterile antiseptic, Sterile gloves, drape and lubricant used, Catheter inserted using aseptic technique, Kaplan care post catheter insertion, Anchoring device applied, Drainage bag secured below level of bladder, Closed system maintained; Stat lock; Straight-tip; 16 Fr. 06/28/19 180 by Joleen Aguila RN Wound 06/28/19; 2030; Heel ; Posterior, Right; Pressure ulcer/injury; Unstagable 06/28/192029 by Venkat Pak RN Wound 06/28/19; 2030; Head ; Left, Upper; Laceration 06/28/192029 by Venkat Pak RN Wound 06/28/19; 0158; Leg; Left, Posterior, Lower; Pressure ulcer/injury; Stage 3; 07/10/19; 0233; Healed 06/28/19 0158 by Sharon Nixon RN 07/10/19 0233 by MAGDALENA Vallecillo Wound 06/28/19; 0200; Leg; Left, Posterior, Upper; Pressure ulcer/injury; Unstagable; 07/10/19; 0235; Healed 06/28/19 0200 by Sharon Nixon RN 07/10/19 0235 by Ivelisse A Navin, NICHOLS Peripheral IV Placement Date: 07/03/19; Placement Time: 2237; Placed Outside of This Facility?: No; Size: 22 G; Orientation: Left; Location: Forearm, Cephalic; Site Prep: Chlorhexidine; Local Anesthetic: None; Insertion attempts: 1; Ultrasound-guided Placement?: No; Patient Tolerance: Tolerated well; Removal Date: 07/08/19; Removal Time: 1557; Removal Reason: Infiltrated 07/03/198 by Ivelisse Kotahri RN 07/08/19 1557 by Marti Estrada RN Supraglottic Airway Placement Date: 07/04/19; Placement Time: 1340; Airway Device: Nasal pharyngeal airway; Placed By: GIGI; Extubation Assessment: Atraumatic; Removal Date: 07/04/19; Removal Time: 1402; Removal Person: HYDROPULPER OPERATOR; Removal Reason: End of Case 07/04/19 1340 by Damon Conteh CRNA 07/04/19 1402 by Damon Conteh CRNA documented in this encounter Social History Tobacco [...] have Coronavirus / COVID-19? No / Unsure 06/28/2019 1:56 PM CDT documented as of this encounter Last Filed Vital Signs Vital Sign Reading Time Taken Comments Blood Pressure 124/56 07/04/2019 2:03 PM CDT Pulse 63 07/04/2019 2:06 PM CDT Temperature - - Respiratory Rate - - Oxygen Saturation 100% 07/04/2019 2:06 PM CDT Inhaled Oxygen Concentration - - [...] Chappell RN Active documented in this encounter OR Notes * Anesthesia Postprocedure Evaluation - Cole Saunders CRNA - 07/05/2019 10:31 AM CDT Anesthesia Post-op Note Iris Pascual Procedure(s): USE TRANSESOPHAGEAL ECHO Anesthesia type: general Vitals: 07/05/19 0733 BP: 132/57 Vitals: 07/05/19 0733 Pulse: 81 Vitals: 07/05/19 0733 Resp: 16 Vitals: 07/05/19 0733 Temp: 36.8 ??C Vitals: 07/05/19 0733 SpO2: 93% Patient Location: Inpatient Unit Level of Consciousness: awake, alert and oriented Pain Management: adequate analgesia Airway Patency: patent Respiratory Status: acceptable Cardiovascular Status: acceptable Post-Op Nausea: none Postoperative Hydration: euvolemic Complications: no anesthesia complication Comments: * Anesthesia Postprocedure Evaluation - Racquel Ness MD - 07/04/2019 2:20 PM CDT Anesthesia Post-op Note Karynmk Nathan Ankur Procedure(s): USE TRANSESOPHAGEAL ECHO Anesthesia type: general Vitals: 07/04/19 1414 BP: 111/51 Vitals: 07/04/19 1414 Pulse: 66 Vitals: 07/04/19 1147 Resp: 20 Vitals: 07/04/19 1147 Temp: 36.3 ??C Vitals: 07/04/19 1414 SpO2: 98% Patient 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: 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) Level of Consciousness: awake, oriented and alert Pain Management: adequate analgesia Airway Patency: patent Respiratory Status: spontaneous ventilation and nonlabored ventilation Cardiovascular Status: hemodynamically stable Post-Op Nausea: none Postoperative Hydration: euvolemic Complications: no anesthesia complication * Anesthesia Preprocedure Evaluation - Racquel Ness MD - 07/04/2019 12:54 PM CDT Anesthesia ROS/MED History Reviewed: Patient summary , ECG, Family history anesthesia, Anesthesia history , Medications , Labs , Images/Studies , Unchecked boxes are not applicable Pre-Anesthetic State: alert, awake and responds appropriately no history of anesthetic complications Pulmonary (-) shortness of breath, recent URI Cardiovascular Exercise tolerance:poor (+) hypertension, past [place] (NSTEMI - max troponin 0.14 ), Peripheral vascular disease, hyperlipidemia Neuro/Psych (+) psychiatric problem, (schizophrenia), dementia (mild) GI/Hepatic/Renal Endo/Other (+) diabetes mellitus, (sub Q insulin), obese, hypothyroidism, blood dyscrasia, (Anemia) Comments: Breast cancer GENERAL COMMENTS Patient brought to hospital with mental status changes, hypothermia and hyperglycemia (not in DKA).Found to be septic without shock. Past Surgical History: No date: BREAST SURGERY; Bilateral No date: KNEE SURGERY; Right No date: REMOVAL OF OVARY(S); Left No date: UPPER ARM/ELBOW SURGERY UNLISTED; Right Past Medical History: No date: Cancer (CMS/HCC) Comment: breast No date: Diabetes mellitus (CMS/HCC) No date: Disease of thyroid gland No date: Hypertension No date: PVD (peripheral vascular disease) (CMS/HCC) No date: Schizophrenia (CMS/HCC) Physical Evaluation Airway Mallampati: I TM Distance: >3 FB Neck ROM: normal Dental (edentulous) Pulmonary Pulmonary exam normal Cardiovascular Cardiovascular exam normal Other findings: Blood pressure 141/48, pulse 66, temperature 36.3 ??C, temperature source Oral, resp. rate 20, height 5' 2 (1.575 m), weight 76.3 kg (168 lb 3.4 oz), SpO2 100 %. 07/04/19 0637 WBC 5.8 RBC 3.15* HGB 9.0* HCT 27.8* PLT 161 NA 136 K 3.7 CL 100 CO2 31.8 AGAP 4.2* BUN 13 CR 0.85 BUNCREATININ 15.2 GFRNON 72* GFR 84* GLU 137* CA 8.9 Anesthesia Plan ASA 3 Intravenous Induction Anesthesia type: general Discussed potential risks of TIVA/General Anesthesia corneal abrasion, visual impairment or visual loss, mouth injury, dental damage, sore throat, hoarseness, esophageal injury, awareness under anesthesia, nerve injury due to positioning, aspiration, pneumonia, stroke, cardiac event, adverse drug reactions and . TIVA Informed Consent Anesthetic plan and risks discussed with patient of whom consent was obtained. . documented in this encounter Plan of Treatment Not on file documented as of this encounter Visit Diagnoses Not on filedocumented in this encounter Administered Medications Inactive Administered Medications - up to 3 most recent administrations Medication Order MAR Action Action Date Dose Rate Site lidocaine (PF) (XYLOCAINE) 2 % injection PRN, Starting on Chari 07/04/19 at 1336, Until Chari 07/04/19 at 1406, Anesthesia Intra-Op Given 07/04/2019 1:56 PM CDT 20 mg Given 07/04/2019 1:36 PM CDT 80 mg propofol (DIPRIVAN) IV bolus Intravenous, PRN, Starting on Chari 07/04/19 at 1336, Until Chari 07/04/19 at 1406, Anesthesia Intra-Op Given 07/04/2019 1:53 PM CDT 30 mg Given 07/04/2019 1:46 PM CDT 25 mg Given 07/04/2019 1:42 PM CDT 25 mg sodium chloride 0.9% infusion Intravenous, Continuous PRN, Starting on Chari 07/04/19 at 1300, Until Chari 07/04/19 at 1406, Anesthesia Intra-Op New Bag 07/04/2019 1:00 PM CDT documented in this encounter Additional Health Concerns Infection Onset Date Last Indicated Resolved Time MRSA Comment:MRSA Blood Identified 06/28/2019 06/28/2019 07/01/2019 documented as of this encounter Care Teams Program Control Analyst Relationship Specialty Start Date End Date Don Branham MD [address] [place] [address] PCP - General EMERGENCY MEDICINE 05/10/19 Damon Swanson MD INTERNAL MEDICINE 12/10/18 documented as of this encounter
--- OUTSIDE RECORDS SUMMARY | 2024-02-26 21:25 | XMS_ITS | Encounter Summary ---
Author Organization [facility] Address [address] [place] [address]. [place] [address] [place] [address] Care Team Providers Care Field Collector Name Role Phone Damon Swanson MD Unavailable [phone] Don Branham MD Primary Care Provider [phone] Reason for Referral * Imaging (Routine) - Closed Specialty Diagnoses / Procedures Referred By Contac t Referred To Contact RADIOLOGY Diagnoses PVD (peripheral vascular disease) (CMS/HCC) Procedures XA AIF ANGIOGRAM Khalif Dang MD [facility]. [facility] [address] [place] [address] Phone: tel: fax: [place] [address] Phone: tel: Referral ID Status Reason Start Date Expiration Date Visits Re quested Visits Authorized [id number] Closed 07/05/2019 08/01/2020 1 1 Encounter Details Date Type Department Care Team (Late st Contact Info) Description 07/03/2019 Orders Only [facility], [address] [place] [address] Khalif Dang MD [facility]. [facility] [address] [place] [address] Social History Tobacco Use Types Packs/Day Years [...] Cardiac Cath Routine PVD (peripheral vascular disease) Expected: 07/05/2019, Expires: 07/02/2020 documented as of this encounter Visit Diagnoses Diagnosis PVD (peripheral vascular disease) (CMS/HCC)- Primary Peripheral vascular disease, unspecified documented in this encounter Additional Health Concerns Infection Onset Date Last Indicated Resolved Time MRSA Comment:MRSA Blood Identified 06/28/2019 06/28/2019 07/01/2019 documented as of this encounter Care Teams Field Collector Relationship Specialty Start Date End Date Don Branham MD [address] [place] [address] PCP - General EMERGENCY MEDICINE 05/10/19 Damon Swanson MD INTERNAL MEDICINE 12/10/18 documented as of this encounter
--- OUTSIDE RECORDS SUMMARY | 2024-02-26 21:25 | XMS_ITS | Encounter Summary ---
Author Organization [facility] Address [address] [place] [address]. [place] [address] [place] [address] Care Team Providers Care Crna Name Role Phone Damon Swanson MD Unavailable [phone] Kimberley Durant MD Primary Care Provider [phone] Encounter Details Date Type Department Care Team (Latest Contact Info) Description 05/07/2019 Travel Social History Tobacco Use Types Packs/Day [...] serious difficulty walking or climbing stairs? Yes 05/07/2019 5:32 PM Rizwana Celis RN Ac tive * Question Answer Date of Assessment Author Status Do you have difficulty dressing or bathing? Yes 05/07/2019 5:32 PM Rizwana Celis R N Active Because of a physical, mental, or emotional condition, do you have difficulty doing errands alone such as visiting a doctor's office or shopping? No 05/07/2019 5:32 PM Rizwana Celis RN Act izabella * RETIRED Are you deaf or do you have serious difficulty hearing Answer Date of Assessment Author Status No 05/07/2019 5:32 PM SITE PROMOTION AGENT Activ e * RETIRED Are you blind or do you have serious difficulty seeing, even when wearing glasses? Answer Date of Assessment Author Status No 05/07/2019 5:32 PM SITE PROMOTION AGENT Activ e * Do you have serious difficulty walking or climbing stairs? Answer Date of Assessment Author Status Yes 05/07/2019 5:32 PM Rizwana Celis RN Active * Do you have difficulty dressing or bathing? Answer Date of Assessment Author Status Yes 05/07/2019 5:32 PM Rizwana Celis RN Active * Because of a physical, mental, or emotional condition, do you have difficulty doing errands alone such as visiting a doctor's office or shopping? Answer Date of Assessment Author Status No 05/07/2019 5:32 PM Rizwana Celis RN Active documented as of this encounter Mental Status * Question Answer Entry Date Author Status Because of a physical, mental, or emotional condition, do you have serious difficulty concentrating, remembering, or making decisions? No 05/07/2019 5:32 PM Rizwana Celis R N Active * Because of a physical, mental, or emotional condition, do you have serious difficulty concentrating, remembering, or making decisions? Answer Entry Date Author Status No 05/07/2019 5:32 PM Rizwana Celis RN Active documented in this encounter Plan of Treatment Not on file documented as of this encounter Visit Diagnoses Not on filedocumented in this encounter Care Teams Crna Relationship Specialty Start Date End Date Kimberley Durant MD [address] [place] [address] PCP - General INTERNAL MEDICINE 02/10/19 05/09/19 Damon Swanson MD INTERNAL MEDICINE 12/10/18 documented as of this encounter
--- OUTSIDE RECORDS SUMMARY | 2024-02-26 21:25 | XMS_ITS | Encounter Summary ---
Author Organization [facility] Address [address] [place] [address]. [place] [address] [place] [address] Care Team Providers Care Supervisor Aluminum Boat Assembly Name Role Phone Damon Swanson MD Unavailable [phone] Kimberley Durant MD Primary Care Provider [phone] Encounter Details Date Type Department Care Team (Late st Contact Info) Description 02/21/2019 3:15 PM GRASS CUTTER Office Visit [facility] [address] [place] [address] [address] Babar Sullivan MD Social History Tobacco Use [...] on filedocumented in this encounter Care Teams Supervisor Aluminum Boat Assembly Relationship Specialty Start Date End Date Kimberley Durant MD [address] [place] [address] PCP - General INTERNAL MEDICINE 02/10/19 05/09/19 Damon Swanson MD INTERNAL MEDICINE 12/10/18 documented as of this encounter
--- OUTSIDE RECORDS SUMMARY | 2024-02-26 21:25 | XMS_ITS | Encounter Summary ---
Author Organization [facility] Address [address] [place] [address]. [place] [address] [place] [address] Care Team Providers Care Revenue Collector Name Role Phone Damon Swanson MD Unavailable [phone] Kimberley Durant MD Primary Care Provider [phone] Encounter Details Date Type Department Care Team (Late st Contact Info) Description 03/01/2019 11:30 AM SUPERVISORY LIFEGUARD Office Visit [facility] [address] [place] [address] Babar Sullivan MD Social History Tobacco Use [...] on filedocumented in this encounter Care Teams Revenue Collector Relationship Specialty Start Date End Date Kimberley Durant MD [address] [place] [address] PCP - General INTERNAL MEDICINE 02/10/19 05/09/19 Damon Swanson MD INTERNAL MEDICINE 12/10/18 documented as of this encounter
--- OUTSIDE RECORDS SUMMARY | 2024-02-26 21:25 | XMS_ITS | Encounter Summary ---
Author Organization [facility] Address [address] [place] [address]. [place], [place] [id number] [place] [address] Care Team Providers Care Political Science Research Assistant Name Role Phone Damon Swanson MD Unavailable [phone] Rick Glez MD Primary Care Provider [phone] Don Branham MD Primary Care Provider [phone] Reason for Referral * (Routine) - Canceled Specialty Diagnoses / Procedures Referred By Leif t Referred To Contact Procedures OT eval and treat Ekaterina Barlow MD [address] [address] Phone: tel: fax: Referral ID Status Reason Start Date Expiration Date V isits Requested Visits Authorized [id number] Canceled 05/10/2019 06/07/2020 1 1 [facility] * Home Health Care (Routine) - Closed Specialty Diagnoses / Procedures Referred By Leif t Referred To Contact Home Health Services / [facility] Diagnoses Ulcer of lower limb, left, limited to breakdown of skin (CMS/HCC [facility]) Ekaterina Barlow MD [address] [address] Phone: tel: fax: [facility] Home Care [facility] [address] [facility] [address] [place] [address] Phone: tel: fax: Referral ID Status Reason Start Date Expiration Date V isits Requested Visits Authorized [id number] Closed Home Health Services 05/10/2019 06/08/2020 1 1 [facility] * Imaging (Urgent) - Closed Specialty Diagnoses / Procedures Referred By Contac t Referred To Contact Procedures IR MIDLINE PLACEMENT GREATER 3YR [facility] Med/Surg [address] [place] [address] Phone: tel: Referral ID Status Reason Start Date Expiration Date Visits Re quested Visits Authorized [id number] Closed 05/09/2019 06/06/2020 1 1 [facility] * Imaging (Urgent) - Closed Specialty Diagnoses / Procedures Referred By Contac t Referred To Contact RADIOLOGY Procedures USV ART REST W REBECCA LOW EXT USV ART DUPLEX+REBECCA LOW BRENDON [place] [address] Phone: tel: fax: Referral ID Status Reason Start Date Expiration Date Visits Re quested Visits Authorized [id number] Closed 05/07/2019 06/04/2020 1 1 [facility] * (Routine) - Closed Specialty Diagnoses / Procedures Referred By Contac t Referred To Contact Procedures Consult to wound care [place] [address] Phone: tel: fax: Referral ID Status Reason Start Date Expiration Date Visits Re quested Visits Authorized [id number] Closed 05/07/2019 06/04/2020 1 1 [facility] * (Routine) - Canceled Specialty Diagnoses / Procedures Referred By Contac t Referred To Contact Procedures PT eval and treat [place] [address] Phone: tel: fax: Referral ID Status Reason Start Date Expiration Date V isits Requested Visits Authorized [id number] Canceled 05/07/2019 06/04/2020 1 1 [facility] Reason for Visit * Reason Comments Decubitus Ulcer Hyperglycemia * Auth/Cert Specialty Diagnoses / Procedures Referred By Contac t Referred To Contact Diagnoses Weakness Hyperglycemia Decubitus skin ulcer Noncompliance Sepsis ([facility]) Sepsis ([facility]) Referral ID Status Reason Start Date Expiration Date Visits Re quested Visits Authorized [id number] 1 1 Encounter Details Date Type Department Care Team (Late st Contact Info) Description 05/07/2019 12:00 PM [facility] - 05/17/2019 10:45 AM [facility] Hospital Encounter [facility] Med/Surg [address] [place] [address] Don Branham MD [address] [place] [address] Loraine Penaloza MD 1 [place] [address] [phone] (Work) Quiana Buenrostro MD [place], [place] [address] [phone] (Work) Rosa Fabian MD [place], [place] [address] [phone] (Work) Ekaterina Barlow MD [address] [place] [address] Sharon Ortez NP 1 [place] [address] [phone] (Work) Beth Cm MD 1 [place], [place] [address] [phone] (Work) Fabiola Carter MD 1 [place], [place] [address] [phone] (Work) Decubitus Ulcer; Hyperglycemia Discharge Disposition: Long-Term Facility Social History Tobacco Use Types Packs/Day [...] Sign Reading Time Taken Comments Blood Pressure 135/53 05/17/2019 5:00 AM [facility] Pulse 78 05/17/2019 5:00 AM [facility] Temperature 37.1 ??C (98.8 ??F) 05/17/2019 5:00 AM CS T Respiratory Rate 18 05/17/2019 5:00 AM [facility] Oxygen Saturation 96% 05/17/2019 5:00 AM [facility] Inhaled Oxygen Concentration - - Weight 96 kg (211 lb 10.3 oz) 05/16/2019 5:31 A M [facility] Height 157.5 cm (5' 2 ) 05/07/2019 11:45 AM [facility] Body Mass Index 38.71 05/07/2019 11:45 AM [facility] documented in this encounter Functional Status * [...] Assessment Author Status No 05/07/2019 5:32 PM [facility] Activ e * RETIRED Are you blind or do you have serious difficulty seeing, even when wearing glasses? Answer Date of Assessment Author Status No 05/07/2019 5:32 PM [facility] Activ e * Do you have serious difficulty walking or climbing stairs? Answer Date of Assessment Author Status Yes 05/07/2019 5:32 PM Rizwana Celis RN Active * Do you have difficulty dressing or bathing? Answer Date of Assessment Author Status Yes 05/07/2019 5:32 PM Rizwana Ceils RN Active * Because of a physical, [...] Date Author Status No 05/07/2019 5:32 PM Rizawna Celis RN Active documented in this encounter Discharge Summaries * Fabiola Carter MD - 05/17/2019 9:18 AM CST Hospitalist Discharge Summary Patient ID: Iris Gil. female. 1955. Admit date: 05/07/2019 12:00 PM Discharge date and time: 03/06/20 Admitting Physician: Loraine Penaloza MD Attending Physician: Fabiola Carter MD Primary Care Physician: Don Branham MD Discharge Physician: Fabiola Carter MD Hospital Diagnosis: Sepsis (CMS/HCC) Admission Condition: fair Discharged Condition: Stable Code Status: Full Code Indication for Admission: Chief Complaint Patient presents with ??? Decubitus Ulcer ??? Hyperglycemia Readmission/Mortality Score at discharge: Low 0-28, Medium 29-58, High >59 LACE+ Score Readmission Score: 80 Male Patient: Urgent Admission: 15 Discharge Institution: Length of Stay: 7 Alternative Level of Care Status: 0 ED Visits in Previous 6 Months: 3 Elective Admission in Previous Year: 6 Comorbidity Score (by age & number of urgent admissions): 49 Hospital Course: Iris Gil is a 64-year-old female with a past medical history significant for breast cancer, diabetes mellitus, HTN who presents for evaluation of an ulcer to her left leg. Patient was previously going to the wound clinic but has not been since February 2019 due to insurance issues. She has not taken any of her medications since mid March after being discharged from [facility]. She was in rehab due to leg weakness. Patient states her wound has not been drianing but does have a foul odor. She says her granddaughter would not get her creams to put on her wounds and her pain was getting worse so she came to the hospital. Patient mentions that her urine has looked like glue since she was left the [place]. She has occasional chills. No fevers, sweats. Patient is full code. Her POA is her daughter Ailyn Turner. Sepsis: Now resolved Present with tachycardia, tachypnea, lactic acidosis. ?? Secondary to LLE cellulitis +/- UTI Continue ceftriaxone. ??MRSA screen negative. Switch vanc to IV doxycycline. Monitor CBC Follow-up blood and urine cultures -> NGTD Wound??cultures: pseudomonas aeruginosa, pseudomonas stutzeri and morganella morganii ID consulted, appreciate recs-??was??on fortaz and doxy- switch to levaquin for a total 10 days ?? Pseudomonas Wound Infection Distal LLE Consult ID for abx duration, Levaquin for total of 10 days R/O colonization ?? UTI Urine cx with no growth Significant white sediment noted concerning for large amount of candiduria. Will consider treating if urine does not clear soon with hydration and encouragement to void often. Levaquin for total of 10 days as noted above ?? 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 Not requiring a large amount of insulin here. Suspect dietary noncompliance. Monitor as outpatient ?? Peripheral neuropathy Likely 2/2 to above Encouraged to control DM Start gabapentin ?? Essential hypertension Normotensive Noncompliant with medications as above at home Resumed valsartan Monitor and adjust as needed ?? Hyperlipidemia Resumed statin ?? Hypothyroidism Resumed levothyroxine No utility of checking TFTs at this time as patient has not taken medication since last month. Check TFTs in 4 to 6 weeks as outpatient, primary care physician to do this ?? Hypokalemia: Resolved Replete and Monitor ?? Stage??3-4??ulcer of distal left lower extremity Concern for ischemic ulcer Present for several months Previously seen by Dr. Guy, vascular surgery who has been consulted. ??Recommendations appreciated. Obtain ABIs??-- > moderate PAD noted Awaiting Dr. Guy recommendations Wound care??has been consulted?? Moderate arterial insufficiency per 05/10: ??Dr. Guy didn't recommend debridement Some purulent drainage on gauze - continue current regimen as MRI done in December did not show any osteomyelitis ID mentioned to start Levaquin for total of 10 days ?? Stage III pressure ulcers to bilateral upper thighs posteriorly Present on admission Wound care ?? Normocytic anemia Checked iron studies, B12, folate. No deficiency noted. Monitor Hgb dropped from 7.3->7.6->6.7 - s/p 1 unit PRBC 05/15/19 - Hgb improved to 8.0 ?? Disposition: Patient will be discharged with medications noted below. Patient instructed to follow-up with primary care physician in 1-2 weeks for follow-up. Patient understands all instructions and is in agreement with all instructions and plan for discharge today. Strict return precautions given.Patient discharged today in stable condition to SNF. Findings that require further workup: Follow-up with primary care physician and vascular surgeon and outpatient wound clinic. Consults: vascular surgery and infectious disease and wound care and dietitian Significant Diagnostic Studies: Recent Results (from the past 24 hour(s)) POCT glucose Collection Time: 05/16/19 11:44 AM Result Value Ref Range GLUCOSE POC 218 (H) 70 - 99 mg/dL POCT glucose Collection Time: 05/16/19 4:11 PM Result Value Ref Range GLUCOSE POC 190 (H) 70 - 99 mg/dL POCT glucose Collection Time: 05/16/19 8:56 PM Result Value Ref Range GLUCOSE POC 352 (H) 70 - 99 mg/dL BASIC METABOLIC PANEL Collection Time: 05/17/19 4:38 AM Result Value Ref Range GLUCOSE 187 (H) 70 - 99 MG/DL BUN 32 (H) 7 - 18 MG/DL CREATININE 1.16 (H) 0.55 - 1.02 MG/DL SODIUM 136 136 - 145 MMOL/L POTASSIUM 3.7 3.5 - 5.1 MMOL/L CHLORIDE 96 (L) 100 - 108 MMOL/L CO2 34.1 (H) 21 - 32 MMOL/L CALCIUM 9.5 8.5 - 10.1 MG/DL ANION GAP 5.9 5 - 15 MMOL/L BUN CREATININE RATIO 27.6 (H) 6 - 26 eGFR Non-Afr. Amer. 50 (L) >90 ML/MIN/1.73 M2 eGFR Afr. Amer. 58 (L) >90 ML/MIN/1.73 M2 CBC W/DIFF AUTOMATED Collection Time: 05/17/19 4:38 AM Result Value Ref Range WBC 6.6 4.5 - 11.0 x10'3/uL RBC 2.77 (L) 4.20 - 5.40 x10'6/uL HGB 8.1 (L) 12.0 - 16.0 G/DL HCT 25.3 (L) 38.0 - 48.0 % MCV 91.3 81.0 - 99.0 FL MCH 29.2 27.0 - 31.0 PG MCHC 32.0 32.0 - 36.0 G/DL RDW 14.8 (H) 11.5 - 14.5 % PLT 212 130 - 400 x10'3/uL MPV 9.9 9.3 - 12.2 FL DIFFERENTIAL TYPE AUTOMATED DIFFERENTIAL NEUTROPHILS 69.7 % LYMPHOCYTES 17.8 % MONOCYTES 9.8 % EOSINOPHILS 1.4 % BASOPHILS 0.5 % IMMATURE GRANS 0.8 % ABS. NEUTROPHILS TOTAL 4.63 1.80 - 7.70 x10'3/uL ABS. LYMPHOCYTES 1.18 1.00 - 4.80 x10'3/uL ABS. MONOCYTES 0.65 0.24 - 0.86 x10'3/uL ABS. EOSINOPHILS 0.09 0.04 - 0.36 x10'3/uL ABS. BASOPHILS 0.03 0.01 - 0.08 x10'3/uL ABS. IMMATURE GRANULOCYTES 0.05 0.00 - 0.49 x10'3/uL POCT glucose Collection Time: 05/17/19 5:08 AM Result Value Ref Range GLUCOSE POC 279 (H) 70 - 99 mg/dL Radiology Reports : Radiology Results (Last 30 days) 05/09/19 1516 IR MIDLINE PLACEMENT GREATER 3YR Final result Impression: IMPRESSION: 1. Technically successful, right mid arm brachial 4 Cameroonian 20 cm midline catheter placement. 05/08/19 1102 USV ART REST W REBECCA LOW EXT Final result Discharge Exam: Filed Vitals: 05/16/19 0851 05/16/19 1641 05/16/19 2057 05/17/19 0500 BP: 125/46 123/60 123/55 135/53 Pulse: 78 83 78 Resp: 16 18 18 18 Temp: 98.5 ??F (36.9 ??C) 98.8 ??F (37.1 ??C) 98.7 ??F (37.1 ??C) 98.8 ??F (37.1 ??C) TempSrc: Oral Oral Oral Oral SpO2: 96% 99% 99% 96% Weight: Height: Physical Exam Constitutional: obese, pleasant Head:??Normocephalic??and atraumatic. Eyes:??Conjunctivae??are normal. Cardiovascular:??Normal rate,??regular rhythm??and normal heart sounds. Pulmonary/Chest: No??respiratory distress. She has??no wheezes. She has??no rales. Diminished throughout Abdominal:??Soft.??Bowel sounds are normal. Skin:??dry skin to BLE with erythema to distal end of BLE, left posterior calf wound dressed Discharge Medications: Medication List START taking these medications chlorthalidone 25 MG tablet Commonly known as: HYGROTEN Take 1 tablet (25 mg total) by mouth daily. collagenase ointment Commonly known as: SANTYL Apply topically daily for 10 days. gabapentin 300 MG capsule Commonly known as: NEURONTIN Take 1 capsule (300 mg total) by mouth 3 (three) times daily. levofloxacin 500 MG tablet Commonly known as: LEVAQUIN Take 1 tablet (500 mg total) by mouth daily for 7 days. CONTINUE taking these medications acetaminophen 500 MG tablet Commonly known as: TYLENOL atorvastatin 80 MG tablet Commonly known as: LIPITOR levothyroxine 100 MCG tablet Commonly known as: SYNTHROID metFORMIN 850 MG tablet Commonly known as: GLUCOPHAGE valsartan 160 MG tablet Commonly known as: DIOVAN Where to Get Your Medications These medications were sent to [facility] - [address] [address] ?? chlorthalidone 25 MG tablet ?? collagenase ointment ?? gabapentin 300 MG capsule ?? levofloxacin 500 MG tablet Disposition: Long-Term Facility Time Spent on Discharge: 34 minutes Signed: Fabiola Carter MD documented in this encounter Discharge Instructions * Discharge Instructions* India Fournier RN - 05/17/2019 10:22 AM [facility] Images from the original note were not included. Patient Education Blood Glucose Monitoring Why is this procedure done? Blood glucose monitoring is a way to check the levels of sugar in your blood, especially if you have diabetes. It is also called blood sugar monitoring. You use a device called a glucometer to check your sugar level. The goal is to keep your blood sugar levels close to normal. This can help you avoid problems. You can keep a diary with the time of day and your blood sugar readings. Your blood sugar levels goup and down throughout the day. By checking your blood sugar level, you can see how diet, exercise,and drug treatment may change blood sugar. With routine blood sugar monitoring, your doctor can seehow well you are doing with keeping your blood sugar levels normal. Your doctor will tell you what times of day to test your blood sugar. Common times are when you first wake-up but before eating, before other meals, 1 to 2 hours after a meal, or at bedtime. You should also check your blood sugar if you have: ?? Signs of low blood sugar, like feeling dizzy, shaky, confused, or sweating a lot ?? Signs of high blood sugar, like feeling sleepy, having blurred eyesight, passing urine often, orunusual hunger or thirst What will the results be? You will learn what your blood sugar level is. Ask your doctor what are normal blood sugar levels for you. This most often depends on time of day and when you last ate. The results will help you decide what you need to do. If your blood sugar level is: ?? Low, you may need to take glucose or have something to eat to bring your blood sugar back up to normal. You may need to call your doctor and change how much drug you take. Talk to your doctor or environmental educator so you know what to do before you have a low blood sugar level. ?? High, you may need to take a drug or change the dose to help bring the sugar level down. Also, review each number to see how food, activity, stress, and drugs have affected it. Talk to your doctoror a environmental educator about your results. ?? Normal, you may continue with your regular actions. What happens before the procedure? ?? Wash your hands with soap and water. ?? Use an alcohol pad to clean the finger you are going to stick. What happens during the procedure? ?? Stick the side of your clean fingertip with a fresh small needle or lancet. You will feel a sharp stick and a little discomfort. ?? Some lancets work by themselves. You do not need to stick yourself. ?? Get a drop of blood. You may have to squeeze your finger to get the drop. ?? Touch the edge of the test strip to the drop of blood. Put it into the meter and wait for the result. Follow your meter's directions for use. They may not be the same as these directions. ?? The meter will show the result of your blood sugar levels. ?? Throw the needle or lancet away in a special sharps container, coffee can, or laundry soap bottle. What happens after the procedure? ?? Stop the bleeding after you get your sample. Put a small amount of pressure on your finger. ?? Record your sugar result in your diary with the date and time. You may wish to write down what you ate and when, when you took your drugs, how active you have been, or any illness you have. What follow-up care is needed? Your doctor may ask you to make visits to the office to check on your progress. Be sure to keep these visits. Share your blood sugar results with your doctor. Your doctor may want to change how much drug you take based on the results. What problems could happen? ?? Infection ?? Small amount of bleeding When do I need to call the doctor? ?? Signs of low blood sugar. These include anger, shaking, a fast heartbeat, confusion, or sweating. Keep hard candies, glucose tablets, liquid glucose, or juice on hand for low blood sugar. ?? Signs of high blood sugar. These include sleepiness, blurry eyesight, passing urine more often, increased thirst, breath has a fruity sweet smell, upset stomach and throwing up, dizziness, or passing out. ?? If your blood sugars are running higher or lower than is usual for you. Your doctor may want to change your drugs or dosages. Where can I learn more? [employer] http://www.diabetes.org/cemobw-ldpx-rqetldlx/izbkfvmvl-odt-lquy/orrwg-rawikcl-ts ntrol/yqzznpja-dphj-pqmhd-glucose.html FamilyDoctor.org http://familydoctor.org/familydoctor/en/diseases-conditions/diabetes/treatment/m rayzitqnj-rulp-mbtvt-sugar-level.html Last Reviewed Date 2015-06-11 Consumer Information Use and Disclaimer This information [...] or not to accept your health care provider???s advice, instructions or recommendations. Only your health care provider has the knowledge and training to provide advice that is right for you. Copyright Copyright ?? 2019 [employer] and its affiliates and/or licensors. All rights reserved. Patient Education Diabetes and Diet The Basics Written by the doctors and editors at [facility] Why is diet important in diabetes???--??Diet is important because it is part of diabetes treatment.Many people need to change what they eat and how much they eat to help treat their diabetes. It is important for people to treat their diabetes so that they: ?? Keep their blood sugar at or near a normal level ?? Prevent long-term problems, such as heart or kidney problems, that can happen in people with diabetes Changing your diet can also help treat obesity, high blood pressure, and high cholesterol. These conditions can affect people with diabetes and can lead to future problems, such as heart attacks or strokes. Who will work with me to change my diet???--??Your doctor or nurse will work with you to make a food plan to change your diet. He or she might also recommend that you work with a dietitian. A dietitian is an expert on food and eating. Do I need to eat at the same times every day???--??When and how often you should eat depends, in part, on the diabetes medicine that you take. For example, people who use a certain type of insulin orwho take diabetes pills that increase insulin levels (called sulfonylureas ) should eat meals at the same time each day. This helps prevent people from getting low blood sugar. People who use an insulin pump, insulin before each meal, or pills that improve the way insulin works (called metformin ) do not always have to eat meals at the same time. That's because people who use these treatments have a smaller chance of getting low blood sugar. What do I need to think about when planning what to eat???--??Our bodies break down the food we eatinto small pieces called carbohydrates, proteins, and fats. When planning what to eat, people with diabetes need to think about: ?? Carbohydrates (or carbs ) - Carbohydrates, which are sugars that our bodies use for energy, canraise a person's blood sugar level. Your doctor, nurse, or dietitian will tell you how many carbohydrates you should eat at each meal or snack. Foods that have carbohydrates include: ? Bread, pasta, and rice ? Vegetables and fruits ? Dairy foods ? Foods with added sugar It is best to get your carbohydrates from fruits, vegetables, whole grains, and low-fat milk. ?? Protein - Your doctor, nurse, or dietitian will tell you how much protein you should eat each day. It is best to eat lean meats, fish, eggs, beans, peas, soy products, nuts, and seeds. ?? Fats - The type of fat you eat is more important than the amount of fat. Saturated and trans fats can increase your risk for heart problems, like a heart attack. ? Foods that have saturated fats include meat, butter, cheese, and ice cream. ? Foods that have trans fats include processed food with partially hydrogenated oils on the ingredient list. This may include fried foods, store bought cookies, muffins, pies, and cakes. Monounsaturated and polyunsaturated fats are better for you. Foods with these types of fat include fish, avocado, olive oil, and nuts. ?? Calories - People need to eat a certain amount of calories each day to keep their weight the same. People who are overweight and want to lose weight need to eat fewer calories each day. ?? Fiber - Eating foods with a lot of fiber can help control a person's blood sugar level. ?? Salt - People who have high blood pressure should not eat foods that contain a lot of salt (alsocalled sodium). People with high blood pressure should also eat healthy foods, such as fruits, vegetables, and low-fat dairy foods. ?? Alcohol - Having more than 1 drink (for women) or 2 drinks (for men) a day can raise blood sugarlevels. Also, drinks that have fruit juice or soda in them can raise blood sugar levels. What can I do if I need to lose weight???--??If you need to lose weight, you can: ?? Exercise - Try to exercise for 30 minutes a day, most days of the week. Some people with diabetes need to change their medicine dose before they exercise. They might also need to check their bloodsugar levels before and after exercising. ?? Eat fewer calories - Your doctor, nurse, or dietitian can tell you how many calories you should eat each day in order to lose weight. If you are worried about your weight, size, or shape, talk with your doctor, nurse, or dietitian sothat he or she can help. Can I eat the same foods as my family???--??Yes. You do not need to eat special foods if you have diabetes. You and your family can eat the same foods. Changing your diet is mostly about eating healthy foods and not eating too much. What are the other parts of diabetes treatment???--??The other parts of diabetes treatment are: ?? Exercise ?? Medicines Some people with diabetes need to learn how to match their diet and exercise with their medicine dose. For example, people who use insulin might need to choose the dose of insulin they give themselves. To choose their dose, they need to think about: ?? What they plan to eat at the next meal ?? How much exercise they plan to do ?? What their blood sugar level is If the diet and exercise do not match the medicine dose, a person's blood sugar level can get too low or too high. Blood sugar levels that are too low or too high can cause problems. All topics are updated as new evidence becomes available and our peer review process is complete. This topic retrieved from [employer] on: Oct 24, 2018. Topic 69636 Version 6.0 Release: 27.3.2 - C27.227 ?2019??[employer] and/or its affiliates.??All rights reserved. Consumer Information Use and Disclaimer This information [...] that is right for you.The use of [employer] content is governed by the [employer] Terms of Use. ??2019 [employer]. All rights reserved. Copyright ?2019??[employer] and/or its affiliates.??All rights reserved. Home Health has been arranged for you with [facility]. A nurse will be making contact with you to arrange start date and time. Any questions, please call . left posterior lower leg- At this time, recommend aquacel ag to wound bed, cover with foam. Change every 3 days and as needed for loosened/soiled bandage. posterior upper legs- At this time, recommend left pressure site dressing with bordered foam. Change every 3 days and as needed for loosened/soiled bandage. right posterior upper leg- At this time, recommend santyl to wound bed, cover with dry foam. [facility] [employer] documented in this encounter Medications at Time of Discharge chlorthalidone 25 MG tablet Take 1 tablet (25 mg total) by mouth daily. 30 tablet 05/17/2019 gabapentin 300 MG capsule Take 1 capsule (300 mg total) by mouth 3 (three) times daily. 90 capsule 05/16/2019 acetaminophen 500 MG tabletIndication s:Pain Take 1,000 mg by mouth daily as needed for Pain. Indications: Pain 12/11/2018 0 atorvastatin 80 MG tabletIndication s:Hypercholester olemia Take 80 mg by mouth daily. Indications: High Amount of Cholesterol in the Blood 11/29/2018 0 collagenase ointment Apply topically daily for 10 days. 15 g 05/17/2019 0 levofloxacin 500 MG tablet Take 1 tablet (500 mg total) by mouth daily for 7 days. 7 tablet 05/17/2019 0 levothyroxine 100 MCG tablet Take 100 mcg by mouth daily. 03/22/2019 0 metFORMIN 850 MG tablet Take 850 mg by mouth 2 (two) times daily with meals. 0 valsartan 160 MG tabletIndication s:Hypertension,h eart failure Take 160 mg by mouth daily. Indications: High Blood Pressure Disorder, heart failure 11/29/2018 0 documented as of this encounter Progress Notes * India Fournier RN - 05/17/2019 10:45 AM CST Problem: Discharge Planning Goal: Knowledge of discharge instructions Outcome: Adequate for Discharge Problem: Body Temperature - Risk of, Imbalanced Goal: Body temperature within specified parameters Outcome: Adequate for Discharge Problem: Fluid Volume - Risk of, Imbalanced Goal: Absence of hypovolemia Outcome: Adequate for Discharge Goal: Lactate, serum, within specified parameters Outcome: Adequate for Discharge Goal: Procalciton within specified parameters Outcome: Adequate for Discharge Problem: Injury - Risk of, Abnormal Serum Glucose Level Goal: Glucose level within specified parameters Outcome: Adequate for Discharge Problem: Infection - Risk of, Septic Shock Goal: Absence of infection signs and symptoms Outcome: Adequate for Discharge Problem: Mobility - Impaired Goal: Able to ambulate within specified parameters Outcome: Adequate for Discharge Goal: Knowledge of need for increased mobility Outcome: Adequate for Discharge Problem: Tissue Perfusion - Risk of, Altered Goal: Central venous pressure within specified parameters Outcome: Adequate for Discharge Problem: Venous Thromboembolism - Risk of Goal: Absence of venous thromboembolism Outcome: Adequate for Discharge Problem: Mobility Goal: STG - Pt will ambulate Description Pt will ambulate 25 feet with 2ww with modA. Outcome: Adequate for Discharge Problem: Transfers Goal: STG - Pt will perform bed mobility Description Supine < > sit with SBA to Rich. Outcome: Adequate for Discharge Goal: STG - Pt will perform stand pivot transfer Description Bed < > chair with Rich to modA. Outcome: Adequate for Discharge Problem: Dressing: Lower Extremities Goal: STG - Pt will complete lower body dressing with Description Min A using AE PRN. Outcome: Adequate for Discharge Problem: Transfers Goal: STG - Pt will perform a toilet transfer with Description SBA using 2ww. Outcome: Adequate for Discharge Problem: Activity Tolerance Goal: STG - Pt will perform home exercise program as instructed Description With min VC's in order to increase BUE strength to 4+/5 for ease with transfers. Outcome: Adequate for Discharge [employer] * Layne Corbett LCSW - 05/17/2019 10:01 AM CST 05/17/19 1001 Discharge Planning Living Arrangements Other (Comment) Support Systems Children Type of Residence [facility] Assistance Needed Yes IV Infusion at discharge No Patient expects to be discharged to: Intermediate [facility] confirmed w/ [facility] this date they they CAN accept the patient for skilled care and are willing to accept this date. PRECIOUS provided RN with numbers for report and notified the patient son of the d/c date of today and location. Patient son was agreeable. Important Message from Medicare provided to patient/patient insurance claims representative. Education provided and patient/patient insurance claims representative verbalized understanding and gave verbal consent over the phone. Patient/patient insurance claims representative provided copy ofIMM and copy placed into chart for scanning. SW then arranged next available ambulance with [facility] for transportation and completed an ambulance form. CASE CLOSED CAL TE[employer]IC[employer] * Fabiola Carter MD - 05/16/2019 3:33 PM CST Hospitalist Daily Progress Note Subjective Patient seen and evaluated earlier this morning. Patient is sitting up in chair. Patient denies anychest pain shortness of breath nausea vomiting diarrhea palpitations. Hgb s/p transfusion now stable at 8.0. Awaiting SNF placement. Objective Filed Vitals: 05/15/19 1922 05/16/19 0503 05/16/19 0531 05/16/19 0851 BP: 104/61 135/40 125/46 Pulse: 86 78 78 Resp: 18 18 16 Temp: 100.4 ??F (38 ??C) 99.1 ??F (37.3 ??C) 98.5 ??F (36.9 ??C) TempSrc: Oral Oral Oral SpO2: 99% 95% 96% Weight: 93.5 kg (206 lb 2.1 oz) 96 kg (211 lb 10.3 oz) Height: Physical Exam: Constitutional: obese, pleasant Head:??Normocephalic??and atraumatic. Eyes:??Conjunctivae??are normal. Cardiovascular:??Normal rate,??regular rhythm??and normal heart sounds. Pulmonary/Chest: No??respiratory distress. She has??no wheezes. She has??no rales. Diminished throughout Abdominal:??Soft.??Bowel sounds are normal. Skin:??dry skin to BLE with erythema to distal end of BLE, left posterior calf wound dressed Intake/Output 24H Total: Intake/Output Summary (Last 24 hours) at 05/16/2019 1533 Last data filed at 05/16/2019 0928 Gross per 24 hour Intake 1006.67 ml Output 2300 ml Net -1293.33 ml Medication ??? atorvastatin 80 mg Oral Daily ??? chlorthalidone 25 mg Oral Daily ??? collagenase Topical Daily ??? enoxaparin 40 mg Subcutaneous Q24H ??? gabapentin 300 mg Oral TID ??? insulin lispro 0-16 Units Subcutaneous TID AC And ??? insulin lispro 0-8 Units Subcutaneous Nightly at bedtime ??? levofloxacin 500 mg Oral Daily ??? levothyroxine 100 mcg Oral Daily ??? losartan 100 mg Oral Daily acetaminophen, hydrALAZINE, lvcojmwng-vmofyitl-ifdjnqnvrbi, ondansetron, polyethylene glycol, traMADol Labs: Recent Labs Lab 05/10/19 0538 05/11/19 0636 05/12/19 0629 05/14/19 0435 05/14/19 1542 05/15/19 0457 05/16/19 0604 WBC 8.0 7.8 6.3 7.4 -- 7.2 6.5 RBC 2.64* 2.64* 2.74* 2.47* -- 2.28* 2.71* HGB 7.8* 7.7* 8.0* 7.3* 7.6* 6.7* 8.0* HCT 23.9* 24.1* 25.0* 22.7* 23.7* 21.2* 24.5* MCV 90.5 91.3 91.2 91.9 -- 93.0 90.4 MCH 29.5 29.2 29.2 29.6 -- 29.4 29.5 MCHC 32.6 32.0 32.0 32.2 -- 31.6* 32.7 PLT 267 265 245 229 -- 223 224 RDW 14.0 14.4 14.4 14.6* -- 14.9* 15.5* MPV 9.9 9.9 9.6 9.8 -- 10.0 9.6 PERNEU 75.0 71.1 71.9 71.3 -- 73.0 70.8 PERLYM 14.3 15.9 16.1 15.9 -- 14.2 16.4 PERMON 6.7 7.9 7.5 9.2 -- 9.5 10.0 LYMC 1.15 1.24 1.01 1.18 -- 1.03 1.06 MONOC 0.54 0.62 0.47 0.68 -- 0.69 0.65 EOSC 0.13 0.18 0.17 0.15 -- 0.13 0.09 BASOC 0.04 0.05 0.03 0.04 -- 0.03 0.03 DTYPE AUTOMATED DIFFERENTIAL AUTOMATED DIFFERENTIAL AUTOMATED DIFFERENTIAL AUTOMATED DIFFERENTIAL -- AUTOMATED DIFFERENTIAL AUTOMATED DIFFERENTIAL Recent Labs Lab 05/10/19 0538 05/12/19 0629 05/14/19 0435 05/15/19 0457 05/16/19 0604 NA 137 139 134* 136 137 K 3.7 3.6 4.2 3.8 3.6 CL 103 104 99* 99* 98* CO2 27.9 30.6 31.1 33.2* 35.2* AGAP 6.1 4.4* 3.9* 3.8* 3.8* BUN 20* 19* 27* 31* 27* CR 0.75 0.63 0.87 1.04* 0.87 BUNCREATININ 26.6* 30.0* 31.0* 29.8* 31.0* GFRNON 84* >90 70* 57* 70* GFR >90 >90 82* 66* 82* GLU 174* 97 160* 133* 160* CA 8.1* 8.5 8.9 8.9 8.9 No results for input(s): CHOL, TRI, HDL, LDL, HGBA1C, TSH in the last 168 hours. No results for input(s): APTT, INR, PTT in the last 168 hours. No results for input(s): TROP, TROPIWB, CKMB, CPK in the last 168 hours. No results for input(s): LACTICACID, PROCT in the last 168 hours. No results for input(s): PH, PCO2, PO2, [id number], BICARBWB, BASEDEFICIT, BASEEXCESS in the [id number] hours. No results found for this or any previous visit. X-Ray Radiology Results (Last 48 hours) None Assessment & Plan: ?? Sepsis Present with tachycardia, tachypnea, lactic acidosis. ?? Secondary to LLE cellulitis +/- UTI Continue ceftriaxone. ??MRSA screen negative. Switch vanc to IV doxycycline. Monitor CBC Follow-up blood and urine cultures -> NGTD Wound??cultures: pseudomonas aeruginosa, pseudomonas stutzeri and morganella morganii ID consulted, appreciate recs- was on fortaz and doxy- switch to levaquin for a total 10 days ?? Pseudomonas Wound Infection Distal LLE Consult ID for abx duration, Levaquin for total of 10 days R/O colonization ?? UTI Urine cx with no growth Significant white sediment noted concerning for large amount of candiduria. Will consider treating if urine does not clear soon with hydration and encouragement to void often. R/O ?? 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 Not requiring a large amount of insulin here. Suspect dietarynoncompliance ?? Peripheral neuropathy Likely 2/2 to above Encouraged to control DM Start gabapentin ?? Essential hypertension Normotensive Noncompliant with medications as above Resumed valsartan Monitor and adjust as needed ?? Hyperlipidemia Resumed statin ?? Hypothyroidism Resumed levothyroxine No utility of checking TFTs at this time as patient has not taken medication since last month. Check TFTs in 4 to 6 weeks ?? Hypokalemia: Resolved Replete and Monitor ?? Stage??3-4??ulcer of distal left lower extremity Concern for ischemic ulcer Present for several months Previously seen by Dr. Guy, vascular surgery who has been consulted. ??Recommendations appreciated. Obtain ABIs??-- > moderate PAD noted Awaiting Dr. Guy recommendations Wound care??has been consulted?? Moderate arterial insufficiency per 05/10: ??Dr. Guy didn't recommend debridement Some purulent drainage on gauze - continue current regimen ?? Stage III pressure ulcers to bilateral upper thighs posteriorly Present on admission Wound care ?? Normocytic anemia Checked iron studies, B12, folate. No deficiency noted. Monitor Hgb dropped from 7.3->7.6->6.7 - s/p 1 unit PRBC 05/15/19 - Hgb today at 8.0 Disposition: Social work helping with SNF placement for PT/OT and wound care. Await insurance authorization for SNF. Levaquin for total of 10 days per ID. Fabiola Carter MD 05/16/2019 3:33 PM [employer] * Margi Candi, OTR - 05/16/2019 3:09 PM CST 05/16/19 1400 Therapy Visit Reason for admission sepsis, cellulitis, UTI Ordering Provider Tiago Verified Two Patient Identifiers Yes Patient consents to therapy No Acute Inpatient OT Time Calculation OT Start Time 1436 OT Stop Time 1451 OT Time Calculation (min) 15 min Precautions Precautions Yes/No Yes General Precautions Bed Alarm;Chair Alarm;Fall Risk Instructed on Precautions Yes;Needs reinforcement and education Other pt has a purewick external catheter Subjective Subjective Rm 504: Pt in chair upon arrival, stating upon OT arrival I can't walk! Pt agreeable to BUE ex's this afternoon. Pain Pain Patient does not offer or c/o pain Activity Tolerance Endurance Tolerates 10 - 20 min activity with rests Cognition Overall Cognitive Status Impaired Interventions R Shoulder Strengthening Flexion;Extension;ABduction;ADduction;Elevation;Depression;Sitting (1# wrist weight; 2 sets of 10 reps each) L Shoulder Strengthening Flexion;Extension;ABduction;ADduction;Elevation;Depression;Sitting (1# wrist weight; 2 sets of 10 reps each) R Elbow Strengthening Flexion;Extension;Sitting (1# wrist weight; 2 sets of 10 reps each) L Elbow Strengthening Flexion;Extension;Sitting (1# wrist weight; 2 sets of 10 reps each) R Forearm AROM Supination;Pronation;Sitting (1# wrist weight; 2 sets of 10 reps each) L Forearm AROM Supination;Pronation;Sitting (1# wrist weight; 2 sets of 10 reps each) R Wrist AROM Flexion;Extension;Sitting (1# wrist weight; 2 sets of 10 reps each) L Wrist AROM Flexion;Extension;Sitting (1# wrist weight; 2 sets of 10 reps each) R Hand Strengthening Clothespin (blue; 3 pt pinch; 2 sets of 10 reps) L Hand Strengthening Clothespin (blue; 3 pt pinch; 2 sets of 10 reps) Other (Comment) Ther ex completed in order to increase BUE strength for ease with transfers. Skilled demonstration and instruction provided on each ex, pt requiring moderate verbal and visual cueing to implement correct form. Re- direction needed as pt becomes off task quickly, tolerated ex fairly. Patient/Family Training Precautions x Exercise Program x Other (Comment) 1:1, verbal and visual cueing, moderate carry over Recommendation OT Recommendation OT during Hospitalization;OT at Long-Term Facility OT Equipment Recommended To Be Determined Plan OT Treatment/Intervention Self-care training;Manual therapy;Therapeutic exercises;Therapeutic activities;Neuromuscular re-education;Patient/family training;Functional activity;Safety Progress Slow progress, decreased activity tolerance OT Frequency 3 times/week OT plan for next session ADLs If this is the last treatment note, it will serve as the discharge summary Yes End of Session Safety End of Session Safety Chair alarm set/activated;Call light within reach [facility]SE [facility]ON [employer] * June Bettina Boland - 05/16/2019 3:00 PM CST 05/16/19 1256 Therapy Visit Ordering Provider [facility] Room 504: Patient was in bed prior to PT this afternoon. Patient agreed to work with therapy and stated she will try her best . Reason for admission sepsis, cellulitis, UTI Relevant Comorbidities/ Personal Factors to PT DM, HLD, stage 3-4 ulcer on L LE, stage 3 B posterior proximal thigh ulcer, breast cancer, HTN Verified Two Patient Identifiers Yes Patient consents to therapy Yes Acute Inpatient PT Time Calculation PT Start Time 1256 PT Stop Time 1330 PT Time Calculation (min) 34 min Precautions General Precautions Bed Alarm;Chair Alarm;Fall Risk Instructed on Precautions Yes;Needs reinforcement and education Other pt has a purewick external catheter Pain Pain Yes Pain Score (unrated) Location (B) feet Interventions Range of motion;Re-direction;Relaxation;Re-positioning Activity Tolerance Endurance Tolerates 30 min activity with rests Activity Tolerance Comments Patient demonstrated poor tolerance this afternoon with BM and transfers. SPTA was in room helping patient with BM and needed Max A of 2 this afternoon with the LEs and UEs/torso. SPTA called nurse for assist. Once patient got up onto EOB, patient c/o a little dizziness but subsided quickly after 1 minute. Patient was limited on ambulation due to severe pain/tingling in her feet. Patient stated it feels like I am walking on snakes Patient requested to sit back downin chair. Bed Mobility Rolling Mod assist to right Supine to Sit Max assist to right;Assist of 2 Other (Comment) Patient needed Max A for the UEs/torso and max A with the LE management. SPTA used bed mat to help assist with scooting closer to EOB. TRANSFERS Sit to Stand Mod assist Bed to Chair Min assist (WW) Other (Comment) Patient requires increased time during transfers. Gait Gait Assistance (MEÑO) Other (Comment) Did not do due to patient's (B) in pain in feet Balance Sitting - Static Modified independence Sitting - Dynamic SBA Standing - Static Min Assist;Support of both upper extremities Standing - Dynamic Min Assist;Support of both upper extremities Patient/Family Training Bed Mobility x Transfer Training x Precautions x Recommendation PT Recommendation PT during Hospitalization;PT at Long-Term Facility;Home with assistance;Home PT (SNF vs. home PT pending prgress & amount of assist available) PT Equipment Recommended To Be Determined Plan PT Treatments/Interventions Gait Training;Therapeutic Exercises;Therapeutic Activities;Neuromuscular re-education Progress Slow progress, decreased activity tolerance PT Frequency Daily;BID;6 times/week If this is the last treatment note,it will serve as the discharge summary Yes End of Session Safety End of Session Safety Chair alarm set/activated;Call light within reach;Nursing aware of session Cosigned by Rizwana Robles PTA at 05/16/2019 3:02 PM [employer] CAL [employer]CHNIC[employer]ANS CAL TECHNICIANS * VIANEY Michel - 05/16/2019 9:55 AM CST Multiple calls placed to [facility] yesterday and informed that DON will call SW back, no return call or VM yet this AM. Call placed again this AM to Mee at [facility] once again stating they will call back. [employer] expressed that patient is ready for d/c this date and that there was no return call yesterday so we will need an answer soon. Mee voiced understanding. Will check back with [place] again if no return call and then seek additional placement if needed. Will continue to follow for d/c planning. 11AM Call placed again to [facility] and they stated they still reviewing and will call back. [employer] F[employer]WORK[employer] againexpressed urgency because patient has discharge orders in. Call placed to pts son who would not give a 3rd SNF option because he wants her placed close to home. 1PM Call placed to medical practice administrator at [facility] [address] who stated she is running benefits on patient now to see if she can come skilled or under her Medicaid. Will follow up. 2:45PM Multiple calls to attempt to reach [facility], after 3rd call reached and left for call back. Will attempt to call again. Dr. Carter aware that placement has not been found yet. 3:30PM Still unable to reach [facility]. Immediately placed on hold when attempting to call, every call transferred to . Dr. Carter informed to take out d/c order and avoidable night will be put in by CM. [employer] CAL TECHNICIANS CAL TECHNICIANS CAL TECHNICIANS CAL TECHNICIANS * Fabiola Carter MD - 05/15/2019 5:47 PM CST Hospitalist Daily Progress Note Subjective Patient seen and evaluated earlier this morning. Patient is sitting up in chair. Patient notes she is almost 100% better. However she still complains of snakes crawling on her feet when she is sitting down. However, she has this chronically as she has neuropathy. She denies any chest pain shortness of breath nausea vomiting diarrhea palpitations. Of note, patient's hemoglobin was noted to be at 6.7. He had 1 unit packed red blood cell transfusion given today, will recheck CBC. Awaiting SNF placement. Objective Filed Vitals: 05/15/19 0500 05/15/19 0948 05/15/19 1216 05/15/19 1232 BP: 123/46 124/50 127/43 116/46 Pulse: 82 84 91 88 Resp: 18 16 16 16 Temp: 98.4 ??F (36.9 ??C) 99.6 ??F (37.6 ??C) 101.1 ??F (38.4 ??C) 99.5 ??F (37.5 ??C) TempSrc: Oral Oral Oral Oral SpO2: 98% 99% 96% 93% Weight: Height: Physical Exam: Constitutional: obese, pleasant Head:??Normocephalic??and atraumatic. Eyes:??Conjunctivae??are normal. Cardiovascular:??Normal rate,??regular rhythm??and normal heart sounds. Pulmonary/Chest: No??respiratory distress. She has??no wheezes. She has??no rales. Diminished throughout Abdominal:??Soft.??Bowel sounds are normal. Skin:??dry skin to BLE with erythema to distal end of BLE, left posterior calf wound dressed Intake/Output 24H Total: Intake/Output Summary (Last 24 hours) at 05/15/2019 1747 Last data filed at 05/15/2019 1721 Gross per 24 hour Intake 1306.67 ml Output 900 ml Net 406.67 ml Medication ??? atorvastatin 80 mg Oral Daily ??? chlorthalidone 25 mg Oral Daily ??? collagenase Topical Daily ??? enoxaparin 40 mg Subcutaneous Q24H ??? gabapentin 300 mg Oral TID ??? insulin lispro 0-16 Units Subcutaneous TID AC And ??? insulin lispro 0-8 Units Subcutaneous Nightly at bedtime ??? levofloxacin 500 mg Oral Daily ??? levothyroxine 100 mcg Oral Daily ??? losartan 100 mg Oral Daily ??? sodium chloride 250 mL (05/15/19 1214) acetaminophen, hydrALAZINE, fedhoqdoh-hkqajeps-iukrtvwwuxp, ondansetron, polyethylene glycol, traMADol Labs: Recent Labs Lab 05/09/19 0738 05/10/19 0538 05/11/19 0636 05/12/19 0629 05/14/19 0435 05/14/19 1542 05/15/19 0457 WBC 7.0 8.0 7.8 6.3 7.4 -- 7.2 RBC 3.06* 2.64* 2.64* 2.74* 2.47* -- 2.28* HGB 8.9* 7.8* 7.7* 8.0* 7.3* 7.6* 6.7* HCT 27.4* 23.9* 24.1* 25.0* 22.7* 23.7* 21.2* MCV 89.5 90.5 91.3 91.2 91.9 -- 93.0 MCH 29.1 29.5 29.2 29.2 29.6 -- 29.4 MCHC 32.5 32.6 32.0 32.0 32.2 -- 31.6* PLT 271 267 265 245 229 -- 223 RDW 13.9 14.0 14.4 14.4 14.6* -- 14.9* MPV 9.7 9.9 9.9 9.6 9.8 -- 10.0 PERNEU 79.7 75.0 71.1 71.9 71.3 -- 73.0 PERLYM 10.4 14.3 15.9 16.1 15.9 -- 14.2 PERMON 6.6 6.7 7.9 7.5 9.2 -- 9.5 LYMC 0.72* 1.15 1.24 1.01 1.18 -- 1.03 MONOC 0.46 0.54 0.62 0.47 0.68 -- 0.69 EOSC 0.10 0.13 0.18 0.17 0.15 -- 0.13 BASOC 0.04 0.04 0.05 0.03 0.04 -- 0.03 DTYPE AUTOMATED DIFFERENTIAL AUTOMATED DIFFERENTIAL AUTOMATED DIFFERENTIAL AUTOMATED DIFFERENTIAL AUTOMATED DIFFERENTIAL -- AUTOMATED DIFFERENTIAL Recent Labs Lab 05/09/19 0738 05/10/19 0538 05/12/19 0629 05/14/19 0435 05/15/19 0457 NA 137 137 139 134* 136 K 3.3* 3.7 3.6 4.2 3.8 CL 103 103 104 99* 99* CO2 30.0 27.9 30.6 31.1 33.2* AGAP 4.0* 6.1 4.4* 3.9* 3.8* BUN 16 20* 19* 27* 31* CR 0.80 0.75 0.63 0.87 1.04* BUNCREATININ 20.1 26.6* 30.0* 31.0* 29.8* GFRNON 78* 84* >90 70* 57* GFR >90 >90 >90 82* 66* GLU 261* 174* 97 160* 133* CA 7.9* 8.1* 8.5 8.9 8.9 No results for input(s): CHOL, TRI, HDL, LDL, HGBA1C, TSH in the last 168 hours. No results for input(s): APTT, INR, PTT in the last 168 hours. No results for input(s): TROP, TROPIWB, CKMB, CPK in the last 168 hours. No results for input(s): LACTICACID, PROCT in the last 168 hours. No results for input(s): PH, PCO2, PO2, [id number], BICARBWB, BASEDEFICIT, BASEEXCESS in the [id number] hours. No results found for this or any previous visit. X-Ray Radiology Results (Last 48 hours) None Assessment & Plan: ?? Sepsis Present with tachycardia, tachypnea, lactic acidosis. ?? Secondary to LLE cellulitis +/- UTI Continue ceftriaxone. ??MRSA screen negative. Switch vanc to IV doxycycline. Monitor CBC Follow-up blood and urine cultures -> NGTD Wound??cultures: pseudomonas aeruginosa, pseudomonas stutzeri and morganella morganii ID consulted, appreciate recs- was on fortaz and doxy- switch to levaquin for a total 10 days ?? Pseudomonas Wound Infection Distal LLE Consult ID for abx duration, Levaquin for total of 10 days R/O colonization ?? UTI Urine cx with no growth Significant white sediment noted concerning for large amount of candiduria. Will consider treating if urine does not clear soon with hydration and encouragement to void often. R/O ?? 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 Not requiring a large amount of insulin here. Suspect dietarynoncompliance ?? Peripheral neuropathy Likely 2/2 to above Encouraged to control DM Start gabapentin ?? Essential hypertension Normotensive Noncompliant with medications as above Resumed valsartan Monitor and adjust as needed ?? Hyperlipidemia Resumed statin ?? Hypothyroidism Resumed levothyroxine No utility of checking TFTs at this time as patient has not taken medication since last month. Check TFTs in 4 to 6 weeks ?? Hypokalemia: Resolved Replete and Monitor ?? Stage??3-4??ulcer of distal left lower extremity Concern for ischemic ulcer Present for several months Previously seen by Dr. Guy, vascular surgery who has been consulted. ??Recommendations appreciated. Obtain ABIs??-- > moderate PAD noted Awaiting Dr. Guy recommendations Wound care??has been consulted?? Moderate arterial insufficiency per 05/10: ??Dr. Guy didn't recommend debridement Some purulent drainage on gauze - continue current regimen ?? Stage III pressure ulcers to bilateral upper thighs posteriorly Present on admission Wound care ?? Normocytic anemia Checked iron studies, B12, folate. No deficiency noted. Monitor Hgb dropped from 7.3->7.6->6.7 today. Today, follow CBC closely -Transfuse 1 unit packed red blood cell ?? Disposition: Social work helping with SNF placement for PT/OT and wound care. Await insurance authorization. Levaquin for total of 10 days per ID. Monitor hemoglobin daily to make sure that is stable. Otherwise, patient is stable for discharge tomorrow if hemoglobin remains stable after transfusion.. Fabiola Carter MD 05/15/2019 5:47 PM CAL TECH[employer]IC[employer] * VIANEY Michel - 05/15/2019 2:51 PM CST [employer] F[employer] spoke with Loree Mcintyre at [facility], they are full and cannot accept pt. [facility] [place], they have received referral and DON to call back. Pt care discussed during rounds this date. Pt ready to d/c tomorrow after blood transfusion. Will continue to follow for d/c planning. CAL TECHNICIANS * Audrey Costa, OT Student - 05/15/2019 12:25 PM CST 05/15/19 1222 Therapy Visit Reason for admission sepsis, cellulitis, UTI Comorbidities Relevant to OT DMt2, HLD, HTN, hypokalemia, stage 3-4 ulcer L RUBIO, breast cancer Ordering Provider Tiago Verified Two Patient Identifiers Yes Patient consents to therapy No Subjective Subjective Room: A504. According to EMR lab values are too low at this time/date. HGB: 6.7. Will check back at appropriate time/date. Cosigned by Ailyn Santamaria OTR at 05/15/2019 12:39 PM [employer]ICAL [employer]NIC[employer] CAL TECHNICIANS CAL TECHNICIANS * Rizwana Robles PTA - 05/15/2019 11:11 AM CST 05/15/19 1100 Therapy Visit Ordering Provider [facility] Room 504: Per chart review patient's HGB is at 6.7. Will hold therapy at this time untila rise is shown. RN made aware. Reason for admission sepsis, cellulitis, UTI Relevant Comorbidities/ Personal Factors to PT DM, HLD, stage 3-4 ulcer on L LE, stage 3 B posterior proximal thigh ulcer, breast cancer, HTN CAL TECHNICIANS * Fabiola Carter MD - 05/14/2019 7:40 PM CST Hospitalist Daily Progress Note Subjective Patient seen and evaluated earlier this morning. Patient is sitting up in chair. Patient notes she is almost 100% better. However she complains of snakes crawling on her feet when she is sitting down. However, she has this chronically as she has neuropathy. She denies any chest pain shortness of breath nausea vomiting diarrhea palpitations. Of note, patient originally stated that she did not want to go to a halfway facility and wants to do home health stating that her daughter will help her. However, after talking with her daughter (as she cannot assist her with many of the tasks that are needed for home health) and talking with her son, patient has now changed her mind and is now agreeable to SNF for PT/OT and wound care. Objective Filed Vitals: 05/13/19201005/14/19 0441 05/14/19 0506 05/14/19 1700 BP: 118/50 147/56 96/47 Pulse: 88 76 85 Resp: 18 18 18 Temp: 98.8 ??F (37.1 ??C) 97.8 ??F (36.6 ??C) 98.5 ??F (36.9 ??C) TempSrc: Oral Oral Oral SpO2: 100% 100% 97% Weight: 93.4 kg (205 lb 14.6 oz) Height: Physical Exam: Constitutional: obese, pleasant Head:??Normocephalic??and atraumatic. Eyes:??Conjunctivae??are normal. Cardiovascular:??Normal rate,??regular rhythm??and normal heart sounds. Pulmonary/Chest: No??respiratory distress. She has??no wheezes. She has??no rales. Diminished throughout Abdominal:??Soft.??Bowel sounds are normal. Skin:??dry skin to BLE with erythema to distal end of BLE, left posterior calf wound dressed Intake/Output 24H Total: Intake/Output Summary (Last 24 hours) at 05/14/20191940 Last data filed at 05/14/2019 1100 Gross per 24 hour Intake 720 ml Output 1000 ml Net -280 ml Medication ??? atorvastatin 80 mg Oral Daily ??? chlorthalidone 25 mg Oral Daily ??? collagenase Topical Daily ??? enoxaparin 40 mg Subcutaneous Q24H ??? gabapentin 300 mg Oral TID ??? insulin lispro 0-16 Units Subcutaneous TID AC And ??? insulin lispro 0-8 Units Subcutaneous Nightly at bedtime ??? levofloxacin 500 mg Oral Daily ??? levothyroxine 100 mcg Oral Daily ??? losartan 100 mg Oral Daily acetaminophen, hydrALAZINE, foqzcquks-tqlxrubs-gjukqxgozcw, ondansetron, polyethylene glycol, traMADol Labs: Recent Labs Lab 05/08/19 0616 05/09/19 0738 05/10/19 0538 05/11/19 0636 05/12/19 0629 05/14/19 0435 05/14/19 1542 WBC 5.1 7.0 8.0 7.8 6.3 7.4 -- RBC 3.04* 3.06* 2.64* 2.64* 2.74* 2.47* -- HGB 8.9* 8.9* 7.8* 7.7* 8.0* 7.3* 7.6* HCT 27.4* 27.4* 23.9* 24.1* 25.0* 22.7* 23.7* MCV 90.1 89.5 90.5 91.3 91.2 91.9 -- MCH 29.3 29.1 29.5 29.2 29.2 29.6 -- MCHC 32.5 32.5 32.6 32.0 32.0 32.2 -- PLT 283 271 267 265 245 229 -- RDW 13.6 13.9 14.0 14.4 14.4 14.6* -- MPV 9.9 9.7 9.9 9.9 9.6 9.8 -- PERNEU 71.3 79.7 75.0 71.1 71.9 71.3 -- PERLYM 16.2 10.4 14.3 15.9 16.1 15.9 -- PERMON 7.9 6.6 6.7 7.9 7.5 9.2 -- LYMC 0.82* 0.72* 1.15 1.24 1.01 1.18 -- MONOC 0.40 0.46 0.54 0.62 0.47 0.68 -- EOSC 0.15 0.10 0.13 0.18 0.17 0.15 -- BASOC 0.03 0.04 0.04 0.05 0.03 0.04 -- DTYPE AUTOMATED DIFFERENTIAL AUTOMATED DIFFERENTIAL AUTOMATED DIFFERENTIAL AUTOMATED DIFFERENTIAL AUTOMATED DIFFERENTIAL AUTOMATED DIFFERENTIAL -- Recent Labs Lab 05/08/19 0616 05/09/19 0738 05/10/19 0538 05/12/19 0629 05/14/19 0435 NA 140 137 137 139 134* K 3.0* 3.3* 3.7 3.6 4.2 CL 107 103 103 104 99* CO2 30.2 30.0 27.9 30.6 31.1 AGAP 2.8* 4.0* 6.1 4.4* 3.9* BUN 13 16 20* 19* 27* CR 0.84 0.80 0.75 0.63 0.87 BUNCREATININ 15.6 20.1 26.6* 30.0* 31.0* GFRNON 73* 78* 84* >90 70* GFR 85* >90 >90 >90 82* GLU 135* 261* 174* 97 160* CA 7.6* 7.9* 8.1* 8.5 8.9 Recent Labs Lab 05/08/19 0616 HGBA1C 11.4* No results for input(s): APTT, INR, PTT in the last 168 hours. No results for input(s): TROP, TROPIWB, CKMB, CPK in the last 168 hours. No results for input(s): LACTICACID, PROCT in the last 168 hours. No results for input(s): PH, PCO2, PO2, [id number], BICARBWB, BASEDEFICIT, BASEEXCESS in the [id number] hours. No results found for this or any previous visit. X-Ray Radiology Results (Last 48 hours) None Assessment & Plan: ?? Sepsis Present with tachycardia, tachypnea, lactic acidosis. ?? Secondary to LLE cellulitis +/- UTI Continue ceftriaxone. ??MRSA screen negative. Switch vanc to IV doxycycline. Monitor CBC Follow-up blood and urine cultures -> NGTD Wound??cultures: pseudomonas aeruginosa, pseudomonas stutzeri and morganella morganii ID consulted, appreciate recs- was on fortaz and doxy- switch to levaquin for a total 10 days ?? Pseudomonas Wound Infection Distal LLE Consult ID for abx duration, Levaquin for total of 10 days R/O colonization ?? UTI Urine cx with no growth Significant white sediment noted concerning for large amount of candiduria. Will consider treating if urine does not clear soon with hydration and encouragement to void often. R/O ?? 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 Not requiring a large amount of insulin here. Suspect dietarynoncompliance ?? Peripheral neuropathy Likely 2/2 to above Encouraged to control DM Start gabapentin ?? Essential hypertension Normotensive Noncompliant with medications as above Resumed valsartan Monitor and adjust as needed ?? Hyperlipidemia Resumed statin ?? Hypothyroidism Resumed levothyroxine No utility of checking TFTs at this time as patient has not taken medication since last month. Check TFTs in 4 to 6 weeks ?? Hypokalemia: Resolved Replete and Monitor ?? Stage??3-4??ulcer of distal left lower extremity Concern for ischemic ulcer Present for several months Previously seen by Dr. Guy, vascular surgery who has been consulted. ??Recommendations appreciated. Obtain ABIs??-- > moderate PAD noted Awaiting Dr. Guy recommendations Wound care??has been consulted?? Moderate arterial insufficiency per 05/10: ??Dr. Guy didn't recommend debridement Some purulent drainage on gauze - continue current regimen ?? Stage III pressure ulcers to bilateral upper thighs posteriorly Present on admission Wound care ?? Normocytic anemia Checked iron studies, B12, folate. No deficiency noted. Monitor Hgb 7.3 today, follow CBC closely. Repeat H&H showed globin improved at 7.6. Continue to monitor. ?? Disposition: Social work helping with SNF placement for PT/OT and wound care. Await insurance authorization. Levaquin for total of 10 days per ID. Monitor hemoglobin to make sure that is stable. Otherwise, patient is stable for discharge. Fabiola Carter MD 05/14/2019 7:41 PM [employer] * Haydee Ramirez, EMERGENCY NURSE - 05/14/2019 2:55 PM CST 05/14/19 1430 Therapy Visit Ordering Provider Tiago Subjective Room 504: Patient is up in chair and willing to attempt therapy. Reason for admission sepsis, cellulitis, UTI Relevant Comorbidities/ Personal Factors to PT DM, HLD, stage 3-4 ulcer on L LE, stage 3 B posterior proximal thigh ulcer, breast cancer, HTN Verified Two Patient Identifiers Yes Patient consents to therapy Yes Precautions Precautions Yes/No Yes General Precautions Bed Alarm;Chair Alarm;Fall Risk Instructed on Precautions Yes;Needs reinforcement and education Other pt has a purewick external catheter Activity Tolerance Endurance Tolerates 10 - 20 min activity with rests Cognition Overall Cognitive Status Impaired Bed Mobility Other (Comment) Up in chair TRANSFERS Sit to Stand Min assist Other (Comment) Cues for hand placement when going from sit to stand. Gait Gait Assistance Contact guard assist Assistive Device 2 Wheeled walker Ambulation Distance (Feet) 10 feet x2 forward and backward in room Pattern Shuffle steps;R Decreased stance time;L Decreased stance time Other (Comment) Improved motivation this afternoon Balance Sitting - Static Min Assist Sitting - Dynamic Min Assist Standing - Static CGA;Support of both upper extremities Standing - Dynamic CGA;Support of both upper extremities Exercises Standing LE Exercise Partial heel raises and [id number] at walker Recommendation PT Recommendation PT during Hospitalization;PT at Long-Term Facility;Home with assistance;Home PT (SNF vs. home PT pending prgress & amount of assist available) PT Equipment Recommended To Be Determined Plan PT Treatments/Interventions Gait Training;Therapeutic Exercises;Therapeutic Activities;Neuromuscular re-education Progress Slow progress, decreased activity tolerance PT Frequency Daily;BID;6 times/week If this is the last treatment note,it will serve as the discharge summary Yes End of Session Safety End of Session Safety Chair alarm set/activated;Call light within reach;Family/friend present with patient [employer] TECH[employer]ICIANS * NAVDEEP MichelW - 05/14/2019 2:42 PM CST [employer] met with pt at bedside to again discuss SNF vs home with HH. Pt stated that she is good to return home with her daughter and HH and she has a ride for d/c. [employer] placed call to pts daughter Ailyn who stated that she is unable to help her mother as she works everyday. [employer] met with pt again to explain that she needs help at home and daily wound dressings which her daughter is claiming she is unable to assist with. Pts son was at beside this visit and helped C[employer] explain concerns about returninghome. Pt now agreeable to short term SNF placement for PT/OT and wound care. Mobile Battery Technician has provided a complete list of the following types of agencies, SNF, to pts son utilizing the [employer] tablet. I have explained that the tablets will display ramirez quality metrics along with any entity in which [facility] interest to disclose any financial obligations. Selected options were discussed and pts son and pt voiced a preference for [facility] and [facility]. Referral was made based on pts sons preference. Hospitalist informed that pt is now agreeable to SNF. Will continue to follow for d/c planning. CAL TECHNICIANS * Ailyn Santamaria OTR - 05/14/2019 2:33 PM CST 05/14/19 1330 Therapy Visit Reason for admission sepsis, cellulitis, UTI Comorbidities Relevant to OT DMt2, HLD, HTN, hypokalemia, stage 3-4 ulcer L LE, breast cancer Ordering Provider Tiago Verified Two Patient Identifiers Yes Patient consents to therapy Yes Acute Inpatient OT Time Calculation OT Start Time 1330 OT Stop Time 1355 OT Time Calculation (min) 25 min Precautions Precautions Yes/No Yes General Precautions Bed Alarm;Chair Alarm;Fall Risk Instructed on Precautions Yes;Needs reinforcement and education Other Purewick external catheter Pain Pain Patient does not offer or c/o pain Activity Tolerance Endurance Tolerates 20 - 30 min activity with rests Activity Tolerance Comments FAIR Cognition Overall Cognitive Status Impaired ADL Eating/Feeding Assistance Independent Eating/Feeding Comment FINISHING UP HER TRAY Grooming Assistance Modified independent (Device) Grooming Deficit Increased time to complete UE Dressing Assistance Stand by;Minimal UE Dressing Comment DON/DOFF CLEAN GOWN Patient/Family Training Self Cares X Precautions X Other (Comment) 1:1, WITH QUESTIONABLE INSIGHT TO THE PURPOSE OF TASKS COMPLETED Recommendation OT Recommendation OT during Hospitalization;OT at Long-Term Facility;Home OT;Home with assistance OT Equipment Recommended To Be Determined Plan OT Treatment/Intervention Self-care training;Manual therapy;Therapeutic exercises;Therapeutic activities;Neuromuscular re-education;Patient/family training;Functional activity;Safety Progress Slow progress, decreased activity tolerance OT Frequency 3 times/week OT plan for next session ADLS If this is the last treatment note, it will serve as the discharge summary Yes End of Session Safety End of Session Safety Chair alarm set/activated;Call light within reach;Family/friend present with patient [employer] TECHNICIANS * Audrey Costa, OT Student - 05/14/2019 12:53 PM CST 05/14/19 0839 Therapy Visit Reason for admission sepsis, cellulitis, UTI Comorbidities Relevant to OT DMt2, HLD, HTN, hypokalemia, stage 3-4 ulcer L LE, breast cancer Ordering Provider Tiago Verified Two Patient Identifiers Yes Patient consents to therapy Yes Acute Inpatient OT Time Calculation OT Start Time 0839 OT Stop Time 0918 OT Time Calculation (min) 39 min Precautions Precautions Yes/No Yes General Precautions Bed Alarm;Chair Alarm;Fall Risk Instructed on Precautions Yes;Needs reinforcement and education Other Purewick external catheter Subjective Subjective Room: A504. Pt supine in bed upon arrival. Agreeable to ther. session. Pain Pain Yes Pain Score (Unrated ) Location L LE Interventions Re-direction;Re-positioning Activity Tolerance Endurance Tolerates 45 min activity with rests Activity Tolerance Comments Fair tolerance. Limited by decreased endurance. Cognition Overall Cognitive Status Impaired Following Commands Follows one step commands with repetition ADL LE Dressing Assistance Moderate;Alternating sit/stand;Sitting in chair LE Dressing Deficit Setup;Steadying;Requires assistive device for steadying;Verbal cueing;Supervision/safety;Increased time to complete;Use of adaptive equipment LE Dressing Comment Pt completed LE dressing with loose fitting pants/slipper socks sitting in recliner chair. Pt required LHAE (sockaid/oil well services field supervisor) for distal reach; Min cues for tech and increased time to complete; Alternating sit<->stand with Min A for steadying and use of 2WW. Bed Mobility Supine to Sit Mod assist to right (LE management and scooting to EOB. ) Functional Transfers Sit to Stand Min assist (2WW) Toilet Transfers CGA (2WW) Functional Mobility Pt completed functional mobility from bed to chair with increased time to complete; Min A/Verbal cueing for safety/steadying and use of 2WW. Balance Sitting - Static SBA Sitting - Dynamic Min Assist Standing - Static SBA;Support of both upper extremities (2WW) Standing - Dynamic SBA;Support of both upper extremities (2WW) Patient/Family Training Self Cares x Transfer Training x Other (Comment) One:One. Verbal/Hands on. Pt receptive to ther. session. Recommendation OT Recommendation OT during Hospitalization;OT at Long-Term Facility;Home OT;Home with assistance OT Equipment Recommended To Be Determined Plan OT Treatment/Intervention Self-care training;Manual therapy;Therapeutic exercises;Therapeutic activities;Neuromuscular re-education;Patient/family training;Functional activity;Safety Progress Slow progress, decreased activity tolerance OT Frequency 3 times/week OT plan for next session ADLS/Functional mobility. If this is the last treatment note, it will serve as the discharge summary Yes End of Session Safety End of Session Safety Chair alarm set/activated;Call light within reach;Nursing aware of session Cosigned by ONIEL Puentes at 05/16/2019 7:56 AM [employer]IC[employer] CAL TECHNICIANS CAL TECHNICIANS * Beth Cm MD - 05/13/2019 5:08 PM CST Hospitalist Daily Progress Note Subjective Ms Gil is sitting up in chair. She complains of snakes crawling on her feet she has been toldhe has neuropathy and she has no relief.. she is afebrile. She denies any chest pain/shortness of breath, nausea/vomiting/diarrhea, palpitations. Objective Filed Vitals: 05/12/19 1300 05/12/19 1955 05/13/19 0456 05/13/19 1700 BP: (!) 153/57 (!) 166/61 (!) 160/67 135/72 Pulse: 86 91 81 96 Resp: 18 18 18 Temp: 97.8 ??F (36.6 ??C) 98.2 ??F (36.8 ??C) 97.8 ??F (36.6 ??C) 99.2 ??F (37.3 ??C) TempSrc: Oral Oral Oral Oral SpO2: 100% 98% 99% 98% Weight: 93.8 kg (206 lb 12.7 oz) Height: Intake/Output 24H Total: Intake/Output Summary (Last 24 hours) at 05/13/2019 1708 Last data filed at 05/13/2019 0700 Gross per 24 hour Intake 730 ml Output 2600 ml Net -1870 ml Physical Exam: Constitutional: obese, pleasant Head: Normocephalic and atraumatic. Eyes: Conjunctivae are normal. Cardiovascular: Normal rate, regular rhythm and normal heart sounds. Pulmonary/Chest: No respiratory distress. She has no wheezes. She has no rales. Diminished throughout Abdominal: Soft. Bowel sounds are normal. Skin: dry skin to BLE with erythema to distal end of BLE, left posterior calf wound dressed Medications ??? atorvastatin 80 mg Oral Daily ??? chlorthalidone 25 mg Oral Daily ??? collagenase Topical Daily ??? enoxaparin 40 mg Subcutaneous Q24H ??? insulin lispro 0-16 Units Subcutaneous TID AC And ??? insulin lispro 0-8 Units Subcutaneous Nightly at bedtime ??? levofloxacin 500 mg Oral Daily ??? levothyroxine 100 mcg Oral Daily ??? losartan 100 mg Oral Daily acetaminophen, hydrALAZINE, mjcjqjaaj-mtwtswbh-bhbweiidnez, ondansetron, polyethylene glycol, traMADol Labs, Imaging, Other Studies Recent Labs Lab 05/07/19 1232 05/08/19 0616 05/09/19 0738 05/10/19 0538 05/11/19 0636 05/12/19 0629 WBC 6.8 5.1 7.0 8.0 7.8 6.3 RBC 3.38* 3.04* 3.06* 2.64* 2.64* 2.74* HGB 9.9* 8.9* 8.9* 7.8* 7.7* 8.0* HCT 30.4* 27.4* 27.4* 23.9* 24.1* 25.0* MCV 89.9 90.1 89.5 90.5 91.3 91.2 MCH 29.3 29.3 29.1 29.5 29.2 29.2 MCHC 32.6 32.5 32.5 32.6 32.0 32.0 PLT 314 283 271 267 265 245 RDW 13.6 13.6 13.9 14.0 14.4 14.4 MPV 9.8 9.9 9.7 9.9 9.9 9.6 PERNEU 74.0 71.3 79.7 75.0 71.1 71.9 PERLYM 14.8 16.2 10.4 14.3 15.9 16.1 PERMON 6.9 7.9 6.6 6.7 7.9 7.5 LYMC 1.01 0.82* 0.72* 1.15 1.24 1.01 MONOC 0.47 0.40 0.46 0.54 0.62 0.47 EOSC 0.13 0.15 0.10 0.13 0.18 0.17 BASOC 0.04 0.03 0.04 0.04 0.05 0.03 DTYPE AUTOMATED DIFFERENTIAL AUTOMATED DIFFERENTIAL AUTOMATED DIFFERENTIAL AUTOMATED DIFFERENTIAL AUTOMATED DIFFERENTIAL AUTOMATED DIFFERENTIAL Recent Labs Lab 05/07/19 1232 05/08/1916 05[birth year]/1938 05/10/19 0538 05/12/19 0629 NA 135* 140 137 137 139 K 3.0* 3.0* 3.3* 3.7 3.6 CL 98* 107 103 103 104 CO2 29.7 30.2 30.0 27.9 30.6 AGAP 7.3 2.8* 4.0* 6.1 4.4* BUN 13 13 16 20* 19* CR 1.09* 0.84 0.80 0.75 0.63 BUNCREATININ 11.9 15.6 20.1 26.6* 30.0* GFRNON 54* 73* 78* 84* >90 GFR 62* 85* >90 >90 >90 GLU 353* 135* 261* 174* 97 CA 8.5 7.6* 7.9* 8.1* 8.5 TP 7.8 -- -- -- -- ALB 3.1* -- -- -- -- TBIL 0.8 -- -- -- -- ALKP 58 -- -- -- -- AST 32 -- -- -- -- ALT 28 -- -- -- -- Recent Labs Lab 05/08/19 0616 HGBA1C 11.4* No results for input(s): APTT, INR, PTT in the last 168 hours. No results for input(s): TROP, TROPIWB, CKMB, CPK in the last 168 hours. Recent Labs Lab 05/07/19 1232 05/07/19 1417 05/07/19 1640 LACTICACID 3.9* 3.2* 3.8* No results for input(s): PH, PCO2, PO2, Q3BFRMAIDPUG, BICARBWB, BASEDEFICIT, BASEEXCESS in the [id number] hours. No results found for this or any previous visit. Imaging Usv Art Rest W Rebecca Low Ext Result Date: 05/11/2019 ARTERIAL DOPPLER - REBECCA BILATERAL LOWER EXTREMITY VASCULAR LAB Pat.Name: IRIS GIL Pat.ID: [id number] .Date: 05/08/2019 Refer.: Rick Glez Exam Time: 10:48:00 AM Study Type:FRANCISCO VS Arterial Doppler Legs BRENDON Age: 11 1955,64Y Sex: FEMALE Sonogrphr: THAI Benjamin Pat. Stat.:Inpatient Room: [facility] History / Clinical: LLE non healing wound; PMH- breast CA, DM, HTN, Chronic LE wounds; BMI 38, cellulitis, Prior Rt REBECCA 0.72, toe index 0.49; Lt REBECCA 0.76, toe index 0.52 Procedures:Doppler waveforms, Digit PPG, Systolic Pressures w/REBECCA Race: B ++++++++++++++++++++++++++++++++++++SUMMARY: ++++++++++++++++++++++++++++++++++++ Rom REBECCA Criteria: >1.30 = falsely elevated, calcified vessels; 1.00-1.29 = no signif ischemia at rest ; .80-.99 = mild PAD, asymptomatic; .50-.79 = moderate PAD, claudication; <.50 = severe PAD, rest pain; <.30 = critical PAD, necrosis, poor healing (Digits: DBI >.60 Normal; <.60 Abnormal) (Positive Stress eval: REBECCA decrease of >.20 or >20% pressure drop) Right leg: Common Femoral waveform is triphasic, high amplitude; Poplitealmono- biphasic, medium amplitude; Posterior Tibial biphasic, high amplitude with REBECCA 0.675 ; DP/Anterior Tibial biphasic, low amplitude with REBECCA 0.69 . Digit flow by PPG is low amplitude with DBI 0.225 . Left leg: Common Femoral waveform is triphasic, high amplitude; Popliteal biphasic, high amplitude; Posterior Tibial biphasic, medium amplitude with REBECCA 0 ; DP/Anterior Tibial biphasic, medium ampl itude with REBECCA 0.615 . Digit flow by PPG is medium amplitude with DBI 0.23 . Patient refused BP in left arm due to PCP recommendation Compared to previous exam done 01/08/2019 , there is mild diseaseprogression, on the left. CONCLUSION: REBECCA right leg 0.690, with toe index 0.225 , in the range of moderate ischemia, claudication. Waveforms suggestive of femoral-popliteal disease. REBECCA left leg 0.615 with toe index 0.23 , in the range of moderate ischemia, claudication. Waveforms suggestive of femoral-popliteal disease, infrageniculate disease. Recommend follow up in 1 year. ++++++++++++++++++++++++++++++++++++ FINDINGS: ++++++++++++++++++++++++++++++++++++ ++++++++++++++++++++++++++++++++++++MEASUREMENTS: ++++++++++++++++++++++++++++++++++++ DOPPLER Left Dist Pop A Dist Pop A PSV 81.4 cm/sLeft Dist EMERGENCY NURSE Dist EMERGENCY NURSE PSV 76.3 cm/s Left Dist MAKAYLA Dist MAKAYLA PSV 53.1 cm/s Right SLURRY PLANT OPERATOR SLURRY PLANT OPERATOR PSV 108 cm/s Right Dist Pop A Dist Pop A PSV 57.4 cm/s Right Dist EMERGENCY NURSE Dist EMERGENCY NURSE PSV 85.7 cm/s Right Dist MAKAYLA Dist MAKAYLA PSV 33.4 cm/s PRESSURES Right Brachial Brach P 200 mmHg Right Ankle DP AnkleDP P 138 mmHg Right Ankle PT AnklePT P 135 mmHg Right Great Toe GreatToe P 45 mmHg Right REBECCA PT REBECCA PT 0.675 Right REBECCA DP REBECCA DP 0.69 Right TBI TBI 0.225 Left Ankle DP AnkleDP P 123 mmHg Left Ankle PT AnklePT P 0 mmHgLeft Great Toe GreatToe P 46 mmHg Left REBECCA PT REBECCA PT 0 Left REBECCA DP REBECCA DP 0.615 Left TBI TBI 0.23 Signed 05/11/2019 01:33 PM Spenser White M.D. Ir Midline Placement Greater 3yr Result Date: 05/09/2019 EXAMINATION: Ultrasound fluoroscopy guided peripherally inserted midline catheter placement REASON FOR EXAM: 64 female. Venous access needed. Midline placement requested. COMPARISON: None TECHNIQUE: Informed verbal and written consent was obtained from the patient, patient's medical decision maker. Procedure were discussed including the alternatives, benefits and risks. Patient was positioned supine. The right upper arm was assessed for venous patency. The basilic vein is diminutive. A large brachial vein was identified and targeted in the mid upper arm. Patency was confirmed with ultrasound and an image stored and saved in the imaging archive. The right upper arm was prepped and draped in usual sterile fashion. Lidocaine 1% was used for local anesthesia. 21-gauge micropuncture needle access was obtained with fluoroscopic confirmation of intravascular wire access. A small skin incision was then made. Needle was removed and midline sheath advanced over the wire. Wi re and dilator removed and a 4 Cameroonian 20 cm single midline was advanced to the level of the axillary vein. Position was confirmed fluoroscopically. Catheter was secured to the skin with adhesive dressing. Patient tolerated the procedure well. There were no immediate complications. Fluoroscopy time:2 seconds Number of images: 2 saved IMPRESSION: 1. Technically successful, right mid arm brachial 4 Cameroonian 20 cm midline catheter placement. : Results for orders placed or performed during the hospital encounter of 05/07/19 ECG 12 lead Narrative [address] Test Date: 2019-05-13 Pat Name: IRIS GIL Department: Room: 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 ?? Secondary to LLE cellulitis +/- UTI Continue ceftriaxone. ??MRSA screen negative. Switch vanc to IV doxycycline. Monitor CBC Follow-up blood and urine cultures -> NGTD Wound??cultures: pseudomonas aeruginosa, pseudomonas stutzeri and morganella morganii ID consulted, appreciate recs- was on fortaz and doxy- switch to levaquin for a total 10 days ?? Pseudomonas Wound Infection Distal LLE Consult ID for abx duration R/O colonization ?? UTI Urine cx with no growth Significant white sediment noted concerning for large amount of candiduria. Will consider treating if urine does not clear soon with hydration and encouragement to void often. R/O ?? Type 2 diabetes mellitus complicated by hyperlipidemia Noncompliant with medications since discharge from assisted Sliding scale insulin A1c 11.4, indicating poor glycemic control Re-evaluate medications on discharge. Not requiring a large amount of insulin here. Suspect dietarynoncompliance ?? Peripheral neuropathy Likely 2/2 to above Encouraged to control DM Start gabapentin Essential hypertension Normotensive Noncompliant with medications as above Resumed valsartan Monitor and adjust as needed ?? Hyperlipidemia Resumed statin ?? Hypothyroidism Resumed levothyroxine No utility of checking TFTs at this time as patient has not taken medication since last month. Check TFTs in 4 to 6 weeks ?? Hypokalemia Replete and Monitor ?? Stage??3-4??ulcer of distal left lower extremity Concern for ischemic ulcer Present for several months Previously seen by Dr. Guy, vascular surgery who has been consulted. ??Recommendations appreciated. Obtain ABIs??-- > moderate PAD noted Awaiting Dr. Guy recommendations Wound care??has been consulted?? Moderate arterial insufficiency per 05/10: Dr. Guy didn't recommend debridement Some purulent drainage on gauze - continue current regimen ?? Stage III pressure ulcers to bilateral upper thighs posteriorly Present on admission Wound care ?? Normocytic anemia Checked iron studies, B12, folate. No deficiency noted. Monitor Hgb 7.7 today, follow CBC closely ?? History of breast cancer ?? Plan of care discussed with the patient and primary nurse. Beth Cm MD [employer] * Bud Weir MD - 05/13/2019 3:34 PM CST Infectious Diseases Follow up Note Subjective: Patient seen and examined, No new complains. She was sitting up in recliner. Feels better. Objective: Filed Vitals: 05/12/19 0500 05/12/19 1300 05/12/19 1955 05/13/19 0456 BP: 147/82 (!) 153/57 (!) 166/61 (!) 160/67 Pulse: 74 86 91 81 Resp: 18 Temp: 97.4 ??F (36.3 ??C) 97.8 ??F (36.6 ??C) 98.2 ??F (36.8 ??C) 97.8 ??F (36.6 ??C) TempSrc: Oral Oral Oral Oral SpO2: 100% 100% 98% 99% Weight: 92 kg (202 lb 13.2 oz) 93.8 kg (206 lb 12.7 oz) Height: ROS: Denies any abdominal pain, no nausea, no SOB.All other systems were assessed and were negative for any symptoms. Physical exam: General physical exam not in any apparent distress. HEENT: ROSETTE, EOMI CVS: S1 S2 audible, STRUCTURAL TECHNICIAN RESP: CTA B/L ABD: S,NT,ND BS+ve EXT/SKIN: No Rash Ulceration of the left lower extremity posterior lateral aspect superficial no drainage seen. Labs: Recent Labs Lab 05/10/19 0538 05/11/19 0636 05/12/19 0629 WBC 8.0 7.8 6.3 RBC 2.64* 2.64* 2.74* HGB 7.8* 7.7* 8.0* HCT 23.9* 24.1* 25.0* MCV 90.5 91.3 91.2 MCH 29.5 29.2 29.2 MCHC 32.6 32.0 32.0 PLT 267 265 245 RDW 14.0 14.4 14.4 MPV 9.9 9.9 9.6 PERNEU 75.0 71.1 71.9 PERLYM 14.3 15.9 16.1 PERMON 6.7 7.9 7.5 LYMC 1.15 1.24 1.01 MONOC 0.54 0.62 0.47 EOSC 0.13 0.18 0.17 BASOC 0.04 0.05 0.03 DTYPE AUTOMATED DIFFERENTIAL AUTOMATED DIFFERENTIAL AUTOMATED DIFFERENTIAL Recent Labs Lab 05/07/19 1232 05/09/19 0738 05/10/19 0538 05/12/19 0629 NA 135* < > 137 137 139 K 3.0* < > 3.3* 3.7 3.6 CL 98* < > 103 103 104 CO2 29.7 < > 30.0 27.9 30.6 AGAP 7.3 < > 4.0* 6.1 4.4* BUN 13 < > 16 20* 19* CR 1.09* < > 0.80 0.75 0.63 BUNCREATININ 11.9 < > 20.1 26.6* 30.0* GFRNON 54* < > 78* 84* >90 GFR 62* < > >90 >90 >90 GLU 353* < > 261* 174* 97 CA 8.5 < > 7.9* 8.1* 8.5 TP 7.8 -- -- -- -- ALB 3.1* -- -- -- -- TBIL 0.8 -- -- -- -- ALKP 58 -- -- -- -- AST 32 -- -- -- -- ALT 28 -- -- -- -- < > = values in this interval not displayed. Invalid input(s): LACTATE, PROCALCITONIN Microbiology: Blood: Results for orders placed or performed during the hospital encounter of 05/07/19 (from the past 168hour(s)) CULTURE, BACTERIA, BLOOD Collection Time: 05/07/19 12:31 PM Result Value Ref Range Spec. Description BLOOD Special Requests: NO SPECIAL REQUEST Culture Result: NO GROWTH 5 DAYS CULTURE, BACTERIA, BLOOD Collection Time: 05/07/19 12:17 PM Result Value Ref Range Spec. Description BLOOD Special Requests: NO SPECIAL REQUEST Culture Result: NO GROWTH 5 DAYS Urine: Results for orders placed or performed during the hospital encounter of 05/07/19 (from the past 168hour(s)) CULTURE URINE Collection Time: 05/07/19 4:40 PM Result Value Ref Range Spec. Description URINE STRAIGHT CATH Special Requests: NO SPECIAL REQUEST Culture Result: NO GROWTH 2 DAYS Imaging: MRI December 2018 ?? 1. No osteomyelitis demonstrated. 2. Ulcerated wound of the left lower leg posterolateral aspect without abscess or drainable fluid collection. 3. Marked diffuse subcutaneous edema. 4. Diffuse muscle atrophy and mild patchy edema most likely representing chronic peripheral neuropathy. Assessment Plan: Lateral lower extremity swelling left lower extremity ulceration with cellulitis ?? Superficial wound no deep wounds does not require drainage at this time vascular surgery has seen the patient, noninvasive testing has been done and shows arterial insufficiency of both lower extremities. MRI that was done in December with no evidence of osteomyelitis Currently she is on ceftazidime and vancomycin was given initially now on doxycycline. Wound culture with pseudomonas aeruginosa Pseudomonas stutzeri and Morganella species on Levaquin. Will stop ceftazidime and doxycycline. Patient is colonized with 2 different species of Pseudomonas and Morganella short therapy intended with Levaquin elevation of lower extremities advised. WBC count is 6.3 afebrile, continue Levaquin 10 days total, no change in exam clinically improving,will sign off, please call with questions. ?? Type 2 diabetes mellitus Hypothyroidism Hyperlipidemia Essential hypertension BUD WEIR MD 05/13/2019 [employer] * VIANEY Michel - 05/13/2019 2:04 PM CST Pt care discussed during rounds this date. ID has changed pts antibiotics so no d/c this date. Rex with [facility] informed. Possible d/c tomorrow. Per PT/OT notes pt is improving, still could benefitfrom SNF, pt refusing. Will continue to follow for d/c planning. [employer] * Sonali Sheldon RD - 05/13/2019 1:59 PM CST A: Pt seen this date for follow up. Goal is met as intake is noted to be >75%. Dx of sepsis. PMHincludes DM, breast CA. 75g CHO, cardiac, low cholesterol, 2gm Na diet ordered with intake noted joseline 75-100%. Labs reviewed; blood sugars have been 97-282. Medications reviewed. Noted to have stageIII/IV non-healing ulcer to LLE. Joe is sent with B&D to promote healing of pressure ulcers/injuries. Joe provides 14g protein in addition to PO intake. ?? D: Previous PES statement remains appropriate. I: Goal is for intake of meals and Joe to be >75%. ??Joe is sent with B&D. ??Monitor intake, weight, labs. M/E: She is at high nutritional risk with f/u 3-6-20. ??Goal is for intake of meals and Joe to be>75%. ??Monitor intake, weight, labs. [employer] * Lucía Ohara - 05/13/2019 1:51 PM CST Needs encouragement to participate with ADL's was OOB to chair for awhile, unable to complete care for self [employer] * Rizwana Robles, EMERGENCY NURSE - 05/13/2019 11:39 AM CST 05/13/19 1117 Therapy Visit Ordering Provider Tiago Peraza [id number]: Patient is up in chair and willing to attempt therapy. She states she is unsureif she will be able to walk. Reason for admission sepsis, cellulitis, UTI Relevant Comorbidities/ Personal Factors to PT DM, HLD, stage 3-4 ulcer on L LE, stage 3 B posterior proximal thigh ulcer, breast cancer, HTN Verified Two Patient Identifiers Yes Patient consents to therapy Yes Acute Inpatient PT Time Calculation PT Start Time 1117 PT Stop Time 1131 PT Time Calculation (min) 14 min Precautions Precautions Yes/No Yes General Precautions Bed Alarm;Chair Alarm;Fall Risk Instructed on Precautions Yes;Needs reinforcement and education Other pt has a purewick external catheter Pain Pain Yes Pain Score (unrated) Location L LE Interventions Re-direction;Re-positioning Activity Tolerance Endurance Tolerates 10 - 20 min activity with rests Cognition Overall Cognitive Status Impaired Bed Mobility Other (Comment) Up in chair TRANSFERS Sit to Stand Min assist Other (Comment) Cues for hand placement when going from sit to stand. Extra time to complete tasks this morning. Gait Gait Assistance Contact guard assist Assistive Device 2 Wheeled walker Ambulation Distance (Feet) 10 feet in room Pattern Shuffle steps;R Decreased stance time;L Decreased stance time Other (Comment) Patient was able to ambulate a little bit this morning. She did not want to go further even with encouragement. Balance Sitting - Static Min Assist Sitting - Dynamic Min Assist Standing - Static CGA;Support of both upper extremities Standing - Dynamic CGA;Support of both upper extremities Other (Comment) Patient performed standing balance at the walker. Attempted to have patient let go,however she was fearful to attempt. Patient was able to reach very minimally outside her NATALY. Exercises Standing LE Exercise Partial heel raises x10 at walker. Attempted marching, however patient c/o Myfeet are glued to the floor. Patient/Family Training Transfer Training x Gait Training x Precautions x Exercise Program x Recommendation PT Recommendation PT during Hospitalization;PT at Long-Term Facility;Home with assistance;Home PT (SNF vs. home PT pending prgress & amount of assist available) PT Equipment Recommended To Be Determined Plan PT Treatments/Interventions Gait Training;Therapeutic Exercises;Therapeutic Activities;Neuromuscular re-education Progress Slow progress, decreased activity tolerance PT Frequency Daily;BID;6 times/week If this is the last treatment note,it will serve as the discharge summary Yes End of Session Safety End of Session Safety Chair alarm set/activated;Call light within reach;Nursing aware of session [employer] * Margi Christopher, OTR - 05/13/2019 9:48 AM CST 05/13/19 0900 Therapy Visit Reason for admission sepsis, cellulitis, UTI Comorbidities Relevant to OT DMt2, HLD, HTN, hypokalemia, stage 3-4 ulcer L LE, breast cancer Ordering Provider Cain Verified Two Patient Identifiers Yes Patient consents to therapy Yes Acute Inpatient OT Time Calculation OT Start Time 902 OT Stop Time 933 OT Time Calculation (min) 31 min Precautions Precautions Yes/No Yes General Precautions Bed Alarm;Chair Alarm;Fall Risk Instructed on Precautions Yes;Needs reinforcement and education Other pt has a purewick external catheter Subjective Subjective Rm 504: Pt in bed upon arrival, reporting her head is spinning . Pt agreeable to participate in therapy. Vitals WNL. Home Living Type of Home House Home Layout One level Home Accessibility 0 Steps to enter Bathroom Shower/Tub Tub/shower unit Bathroom Toilet Standard Toilet Bathroom Equipment (none) Bathroom Accessibility Accessible Home Equipment 2 Wheeled walker;Wheelchair-manual Additional Comments Per pt report, pt was living with daughter, before that was in a SNF. Pt reporting she wants to go back to her own home at D/C. Prior Function Level of [place] Independent with functional transfers;Independent with ambulation;Needs assistance with ADLs;Needs assistance with homemaking Device used at baseline 2 Wheeled walker;Wheelchair-manual Baseline Ambulation Distance/Assistance household ambulator Fall History Yes Reason for fall slipped in kitchen trying to get into her wheelchair Most recent fall couple weeks ago How many falls in the past year? 1 Lives With Daughter;Family Receives Help From Family ADL Assistance Needs assistance Homemaking Assistance Needs assistance Comments Pt is a questionable historian. Reporting she is going back home with her house alone. However continued to report information regarding daughter's house. Pt reporting she was indep with ambulation with walker but appears to have been using W/C in home as well. Pt reporting being indep with ADLs besides LB dressing, daughter assisted. Family helped with IADLs. Pain Pain Yes Pain Score (did not rate) Location L LE Interventions Re-direction;Re-positioning Activity Tolerance Endurance Tolerates 30 min activity with rests Activity Tolerance Comments fair; pt reporting being dizzy throughout eval. BP 157/67, spO2 97%, HR84 bpm. Vision - Complex Assessment Additional Comments Pt often closing L eye. Cognition Overall Cognitive Status Impaired Orientation Level Oriented X4 Overall Extremity Assessment Upper Extremity BUE ROM WFL; strength grossly 4/5 Hand Function Hand Dominance Right Gross Grasp Functional Coordination Functional Sensation Additional Comments Pt denies any numbness/tingling at this time. ADL Eating/Feeding Assistance Modified independent (Device);Sitting in chair Eating/Feeding Deficit Increased time to complete Grooming Assistance Stand by;Sitting in chair Grooming Deficit Supervision/safety;Increased time to complete Bathing Assistance Moderate;Alternating sit/stand Bathing Deficit Steadying;Verbal cueing;Supervision/safety;Increased time to complete;Buttocks;Right lower leg including foot;Right upper leg;Left upper leg;Left lower leg including foot Bathing Comment Simulated sponge bath UE Dressing Assistance Stand by;Sitting in chair UE Dressing Deficit Supervision/safety;Increased time to complete LE Dressing Assistance Moderate;Maximal;Alternating sit/stand LE Dressing Deficit Steadying;Requires assistive device for steadying;Verbal cueing;Supervision/safety;Increased time to complete;Don/doff R sock;Don/doff L sock;Thread RLE into underwear;Thread LLE into underwear;Thread RLE into pants;Thread LLE into pants LE Dressing Comment Impaired distal reach; unable to attempt threading over feet this date as pt reporting room is spinning . Pt reports daughter assists at home. Toileting Assistance Moderate;Minimal Toileting Deficit Steadying;Verbal cueing;Supervision/safety;Increased time to complete;Perineal hygiene Bed Mobility Supine to Sit Max assist to right Other (Comment) unable to move BLE's during bed mobility. Functional Transfers Sit to Stand Mod assist Bed to Chair Contact guard assist (using 2ww) Functional Mobility Pt instructed on tech for sit to stand, mod A, pt reporting my feet feel like bubbles. Once standing, verbal cueing and CGA for safety as pt reports being dizzy to use 2ww for stand pivot transfer to chair. Balance Sitting - Static Min Assist Sitting - Dynamic Min Assist Standing - Static CGA;Support of both upper extremities Standing - Dynamic CGA;Support of both upper extremities Assessment Occupational Profile and History Complexity High (Extensive) Performance Skills Deficits Bathing/showering;Dressing;Functional mobility;Health management and maintenance;Home establishment and management;Meal preparation and cleaning;Personal hygiene and grooming;Safety and emergency maintenance;Toileting Performance Deficit Level High (5 or more deficits) Clinical Decision Making High (max modifications) Complexity Level of Evaluation High Prognosis Fair OT Assess/Eval Other (Comment) Pt presents with sepsis, UTI, and LE wounds. Pt questionable historian. Prior to admission, pt was at SNF then went to daughter's house where pt has assist for some ADLs and all IADLs. Pt currently limited due to dizziness and pain in LE's. Pt requiring assist for mobility and some ADLs at this time. Pt would benefit from skilled OT to increase safety and indep at home. Patient/Family Training Self Cares x Transfer Training x Precautions x Other (Comment) Pt receptive to OT eval. Recommendation OT Recommendation OT during Hospitalization;OT at Long-Term Facility;Home OT;Home with assistance (SNF vs. HHOT- HHOT possible only if pt returns to daughter's with assist; unsafe to return home alone at this time) OT Equipment Recommended To Be Determined Plan OT Treatment/Intervention Self-care training;Manual therapy;Therapeutic exercises;Therapeutic activities;Neuromuscular re-education;Patient/family training;Functional activity;Safety OT Frequency 3 times/week OT plan for next session ADLs, functional mob If this is the last treatment note, it will serve as the discharge summary Yes End of Session Safety End of Session Safety Call light within reach;Chair alarm set/activated JOSE BACON [employer] * Beth Cm MD - 05/12/2019 3:33 PM CST Hospitalist Daily Progress Note Subjective Ms Gil is sleeping in bed. She says she has no concerns at this time. she is afebrile. She denies any chest pain/shortness of breath, nausea/vomiting/diarrhea, palpitations. Objective Filed Vitals: 05/11/19 1457 05/11/19 2100 05/12/19 0500 05/12/19 1300 BP: 145/58 (!) 152/61 147/82 (!) (P) 153/57 Pulse: 88 86 74 (P) 86 Resp: 18 18 Temp: 98.6 ??F (37 ??C) 98.4 ??F (36.9 ??C) 97.4 ??F (36.3 ??C) (P) 97.8 ??F (36.6 ??C) TempSrc: Oral Oral Oral (P) Oral SpO2: 98% 100% 100% (P) 100% Weight: 92 kg (202 lb 13.2 oz) Height: Intake/Output 24H Total: Intake/Output Summary (Last 24 hours) at 05/12/2019 1533 Last data filed at 05/12/2019 1157 Gross per 24 hour Intake 530 ml Output 1100 ml Net -570 ml Physical Exam: Constitutional: obese, pleasant Head: Normocephalic and atraumatic. Eyes: Conjunctivae are normal. Cardiovascular: Normal rate, regular rhythm and normal heart sounds. Pulmonary/Chest: No respiratory distress. She has no wheezes. She has no rales. Diminished throughout Abdominal: Soft. Bowel sounds are normal. Skin: dry skin to BLE with erythema to distal end of BLE, left posterior calf wound dressed Medications ??? atorvastatin 80 mg Oral Daily ??? cefTAZidime 2 g Intravenous Q8H ??? collagenase Topical Daily ??? doxycycline 100 mg Intravenous Q12H ??? enoxaparin 40 mg Subcutaneous Q24H ??? insulin lispro 0-16 Units Subcutaneous TID AC And ??? insulin lispro 0-8 Units Subcutaneous Nightly at bedtime ??? levothyroxine 100 mcg Oral Daily ??? losartan 100 mg Oral Daily acetaminophen, hydrALAZINE, dagwygjjr-pxjbrfke-fioqrlwennx, ondansetron, polyethylene glycol, traMADol Labs, Imaging, Other Studies Recent Labs Lab 05/07/19 1232 05/08/19 0616 05/09/19 0738 05/10/19 0538 05/11/19 0636 05/12/19 0629 WBC 6.8 5.1 7.0 8.0 7.8 6.3 RBC 3.38* 3.04* 3.06* 2.64* 2.64* 2.74* HGB 9.9* 8.9* 8.9* 7.8* 7.7* 8.0* HCT 30.4* 27.4* 27.4* 23.9* 24.1* 25.0* MCV 89.9 90.1 89.5 90.5 91.3 91.2 MCH 29.3 29.3 29.1 29.5 29.2 29.2 MCHC 32.6 32.5 32.5 32.6 32.0 32.0 PLT 314 283 271 267 265 245 RDW 13.6 13.6 13.9 14.0 14.4 14.4 MPV 9.8 9.9 9.7 9.9 9.9 9.6 PERNEU 74.0 71.3 79.7 75.0 71.1 71.9 PERLYM 14.8 16.2 10.4 14.3 15.9 16.1 PERMON 6.9 7.9 6.6 6.7 7.9 7.5 LYMC 1.01 0.82* 0.72* 1.15 1.24 1.01 MONOC 0.47 0.40 0.46 0.54 0.62 0.47 EOSC 0.13 0.15 0.10 0.13 0.18 0.17 BASOC 0.04 0.03 0.04 0.04 0.05 0.03 DTYPE AUTOMATED DIFFERENTIAL AUTOMATED DIFFERENTIAL AUTOMATED DIFFERENTIAL AUTOMATED DIFFERENTIAL AUTOMATED DIFFERENTIAL AUTOMATED DIFFERENTIAL Recent Labs Lab 05/07/19 1232 05/08/19 0616 05/09/19 0738 05/10/19 0538 05/12/19 0629 NA 135* 140 137 137 139 K 3.0* 3.0* 3.3* 3.7 3.6 CL 98* 107 103 103 104 CO2 29.7 30.2 30.0 27.9 30.6 AGAP 7.3 2.8* 4.0* 6.1 4.4* BUN 13 13 16 20* 19* CR 1.09* 0.84 0.80 0.75 0.63 BUNCREATININ 11.9 15.6 20.1 26.6* 30.0* GFRNON 54* 73* 78* 84* >90 GFR 62* 85* >90 >90 >90 GLU 353* 135* 261* 174* 97 CA 8.5 7.6* 7.9* 8.1* 8.5 TP 7.8 -- -- -- -- ALB 3.1* -- -- -- -- TBIL 0.8 -- -- -- -- ALKP 58 -- -- -- -- AST 32 -- -- -- -- ALT 28 -- -- -- -- Recent Labs Lab 05/08/19 0616 HGBA1C 11.4* No results for input(s): APTT, INR, PTT in the last 168 hours. No results for input(s): TROP, TROPIWB, CKMB, CPK in the last 168 hours. Recent Labs Lab 05/07/19 1232 05/07/19 1417 05/07/19 1640 LACTICACID 3.9* 3.2* 3.8* No results for input(s): PH, PCO2, PO2, Y2VLOORSFAMK, BICARBWB, BASEDEFICIT, BASEEXCESS in the herw646 hours. No results found for this or any previous visit. Imaging Usv Art Rest W Rebecca Low Ext Result Date: 05/11/2019 ARTERIAL DOPPLER - REBECCA BILATERAL LOWER EXTREMITY VASCULAR LAB Pat.Name: IRIS GIL Pat.ID: [id number] .Date: 05/08/2019 Refer.MD: Rick Glez Exam Time: 10:48:00 AM Study Type:FRANCISCO VS Arterial Doppler Legs BRENDON Age: 11 1955,64Y Sex: FEMALE Sonogrphr: THAI Benjamin Pat. Stat.:Inpatient Room: [facility] History / Clinical: LLE non healing wound; PMH- breast CA, DM, HTN, Chronic LE wounds; BMI 38, cellulitis, Prior Rt REBECCA 0.72, toe index 0.49; Lt REBECCA 0.76, toe index 0.52 Procedures: Doppler waveforms, Digit PPG, Systolic Pressures w/REBECCA Race: B ++++++++++++++++++++++++++++++++++++ SUMMARY: ++++++++++++++++++++++++++++++++++++ Rom REBECCA Criteria: >1.30 = falsely elevated, calcified vessels; 1.00-1.29 = no signif ischemia at rest ; .80-.99 = mild PAD, asymptomatic; .50-.79 = moderate PAD, claudication; <.50 = severe PAD, rest pain; <.30 = critical PAD, necrosis, poor healing (Digits: DBI >.60 Normal; <.60 Abnormal) (Positive Stress eval: REBECCA decrease of >.20 or >20% pressure drop) Right leg: Common Femoral waveform is triphasic, high amplitude; Popliteal mono- biphasic, medium amplitude; Posterior Tibial biphasic, high amplitude with REBECCA 0.675 ; DP/Anterior Tibial biphasic, low amplitude with REBECCA 0.69 . Digit flow by PPG is low amplitude with DBI 0.225. Left leg: Common Femoral waveform is triphasic, high amplitude; Popliteal biphasic, high amplitude; Posterior Tibial biphasic, medium amplitude with REBECCA 0 ; DP/Anterior Tibial biphasic, medium amplitude with REBECCA 0.615 . Digit flow by PPG is medium amplitude with DBI 0.23 . Patient refused BP in left arm due to PCP recommendation Compared to previous exam done 01/08/2019 , there is mild disease progression, on the left. CONCLUSION: REBECCA right leg 0.690, with toe index 0.225 , in the range of moderate ischemia, claudication. Waveforms suggestive of femoral-popliteal disease. REBECCA left leg 0.615with toe index 0.23 , in the range of moderate ischemia, claudication. Waveforms suggestive of femoral-popliteal disease, infrageniculate disease. Recommend follow up in 1 year. ++++++++++++++++++++++++++++++++++++ FINDINGS: ++++++++++++++++++++++++++++++++++++ ++++++++++++++++++++++++++++++++++++ MEASUREMENTS: ++++++++++++++++++++++++++++++++++++ DOPPLER Left Dist Pop A Dist Pop A PSV 81.4 cm/s Left Dist EMERGENCY NURSE Dist EMERGENCY NURSE PSV 76.3 cm/s Left Dist MAKAYLA Dist MAKAYLA PSV 53.1 cm/s Right SLURRY PLANT OPERATOR SLURRY PLANT OPERATOR PSV 108 cm/sRight Dist Pop A Dist Pop A PSV 57.4 cm/s Right Dist EMERGENCY NURSE Dist EMERGENCY NURSE PSV 85.7 cm/s Right Dist MAKAYLA DistATA PSV 33.4 cm/s PRESSURES Right Brachial Brach P 200 mmHg Right Ankle DP AnkleDP P 138 mmHg RightAnkle PT AnklePT P 135 mmHg Right Great Toe GreatToe P 45 mmHg Right REBECCA PT REBECCA PT 0.675 Right REBECCA DP REBECCA DP 0.69 Right TBI TBI 0.225 Left Ankle DP AnkleDP P 123 mmHg Left Ankle PT AnklePT P 0 mmHg Left Great Toe GreatToe P 46 mmHg Left REBECCA PT REBECCA PT 0 Left REBECCA DP REBECCA DP 0.615 Left TBI TBI 0.23 Signed 05/11/2019 01:33 PM Spenser White M.D. Ir Midline Placement Greater 3yr Result Date: 05/09/2019 EXAMINATION: Ultrasound fluoroscopy guided peripherally inserted midline catheter placement REASON FOR EXAM: 64 female. Venous access needed. Midline placement requested. COMPARISON: None TECHNIQUE: Informed verbal and written consent was obtained from the patient, patient's medical decision maker. Procedure were discussed including the alternatives, benefits and risks. Patient was positioned supine. The right upper arm was assessed for venous patency. The basilic vein is diminutive. A large brachial vein was identified and targeted in the mid upper arm. Patency was confirmed with ultrasound and an image stored and saved in the imaging archive. The right upper arm was prepped and draped in usual sterile fashion. Lidocaine 1% was used for local anesthesia. 21-gauge micropuncture needle access was obtained with fluoroscopic confirmation of intravascular wire access. A small skin incision was then made. Needle was removed and midline sheath advanced over the wire. Wi re and dilator removed and a 4 Cameroonian 20 cm single midline was advanced to the level of the axillary vein. Position was confirmed fluoroscopically. Catheter was secured to the skin with adhesive dressing. Patient tolerated the procedure well. There were no immediate complications. Fluoroscopy time:2 seconds Number of images: 2 saved IMPRESSION: 1. Technically successful, right mid arm brachial 4 Cameroonian 20 cm midline catheter placement. : No results found for this visit on 05/07/19. Assessment & Plan Sepsis Present with tachycardia, tachypnea, lactic acidosis. ?? Secondary to LLE cellulitis +/- UTI Continue ceftriaxone. ??MRSA screen negative. Switch vanc to IV doxycycline. Monitor CBC Follow-up blood and urine cultures -> NGTD Wound??cultures: pseudomonas aeruginosa, pseudomonas stutzeri and morganella morganii ID consulted, appreciate recs- currently on fortaz and doxy ?? Pseudomonas Wound Infection Distal LLE Consult ID for abx duration R/O colonization ?? UTI Urine cx with no growth Significant white sediment noted concerning for large amount of candiduria. Will consider treating if urine does not clear soon with hydration and encouragement to void often. R/O ?? Type 2 diabetes mellitus complicated by hyperlipidemia Noncompliant with medications since discharge from assisted Sliding scale insulin A1c 11.4, indicating poor glycemic control Re-evaluate medications on discharge. Not requiring a large amount of insulin here. Suspect dietarynoncompliance ?? Essential hypertension Normotensive Noncompliant with medications as above Resumed valsartan Monitor and adjust as needed ?? Hyperlipidemia Resumed statin ?? Hypothyroidism Resumed levothyroxine No utility of checking TFTs at this time as patient has not taken medication since last month. Check TFTs in 4 to 6 weeks ?? Hypokalemia Replete and Monitor ?? Stage??3-4??ulcer of distal left lower extremity Concern for ischemic ulcer Present for several months Previously seen by Dr. Guy, vascular surgery who has been consulted. ??Recommendations appreciated. Obtain ABIs??-- > moderate PAD noted Awaiting Dr. Guy recommendations Wound care??has been consulted?? Moderate arterial insufficiency per 05/10: Dr. Guy didn't recommend debridement Some purulent drainage on gauze - continue current regimen ?? Stage III pressure ulcers to bilateral upper thighs posteriorly Present on admission Wound care ?? Normocytic anemia Checked iron studies, B12, folate. No deficiency noted. Monitor Hgb 7.7 today, follow CBC closely ?? History of breast cancer ?? Plan of care discussed with the patient and primary nurse. Beth Cm MD [employer] * Sharon Ortez NP - 05/11/2019 2:39 PM CST Hospitalist Daily Progress Note Subjective Ms Gil is resting in recliner when seen and examined upon rounds this afternoon. She is in goodspirits. She states she has intermittent subjective fevers and chills overnight. No documented fevers. She tells me she feels a little bit better today than she did yesterday. She denies any chest jolynn n/shortness of breath, nausea/vomiting/diarrhea, palpitations. She is aware of need for ID consult.She tells me she is eating and drinking well, will stop IV fluids. Objective Filed Vitals: 05/10/19 1233 05/10/19 2043 05/11/19 0500 05/11/19 0700 BP: (!) 157/72 121/53 137/61 Pulse: 95 94 83 Resp: 18 Temp: 98.5 ??F (36.9 ??C) 98 ??F (36.7 ??C) 98.4 ??F (36.9 ??C) TempSrc: Oral Oral Oral SpO2: 99% 97% 100% Weight: 96.9 kg (213 lb 10 oz) Height: Intake/Output 24H Total: Intake/Output Summary (Last 24 hours) at 05/11/2019 1439 Last data filed at 05/11/2019 0900 Gross per 24 hour Intake 480 ml Output 1100 ml Net -620 ml Physical Exam: Constitutional: obese, pleasant HENT: Head: Normocephalic and atraumatic. Eyes: Conjunctivae are normal. Cardiovascular: Normal rate, regular rhythm and normal heart sounds. Pulmonary/Chest: No respiratory distress. She has no wheezes. She has no rales. Diminished throughout Abdominal: Soft. Bowel sounds are normal. Skin: dry skin to BLE with erythema to distal end of BLE, left posterior calf wound dressed Medications ??? atorvastatin 80 mg Oral Daily ??? cefTAZidime 2 g Intravenous Q8H ??? collagenase Topical Daily ??? doxycycline 100 mg Intravenous Q12H ??? enoxaparin 40 mg Subcutaneous Q24H ??? insulin lispro 0-16 Units Subcutaneous TID AC And ??? insulin lispro 0-8 Units Subcutaneous Nightly at bedtime ??? levothyroxine 100 mcg Oral Daily ??? losartan 100 mg Oral Daily ??? sodium chloride 100 mL/hr at 05/10/19 2321 acetaminophen, hydrALAZINE, ygpecblef-umkollov-csawygujgrp, ondansetron, polyethylene glycol, traMADol Labs, Imaging, Other Studies Recent Labs Lab 05/07/19 1232 05/08/19 0616 05/09/19 0738 05/10/19 0538 05/11/19 0636 WBC 6.8 5.1 7.0 8.0 7.8 RBC 3.38* 3.04* 3.06* 2.64* 2.64* HGB 9.9* 8.9* 8.9* 7.8* 7.7* HCT 30.4* 27.4* 27.4* 23.9* 24.1* MCV 89.9 90.1 89.5 90.5 91.3 MCH 29.3 29.3 29.1 29.5 29.2 MCHC 32.6 32.5 32.5 32.6 32.0 PLT 314 283 271 267 265 RDW 13.6 13.6 13.9 14.0 14.4 MPV 9.8 9.9 9.7 9.9 9.9 PERNEU 74.0 71.3 79.7 75.0 71.1 PERLYM 14.8 16.2 10.4 14.3 15.9 PERMON 6.9 7.9 6.6 6.7 7.9 [facility] 1.01 0.82* 0.72* 1.15 1.24 MONOC 0.47 0.40 0.46 0.54 0.62 EOSC 0.13 0.15 0.10 0.13 0.18 BASOC 0.04 0.03 0.04 0.04 0.05 DTYPE AUTOMATED DIFFERENTIAL AUTOMATED DIFFERENTIAL AUTOMATED DIFFERENTIAL AUTOMATED DIFFERENTIAL AUTOMATED DIFFERENTIAL Recent Labs Lab 05/07/19 1232 05/08/19 0616 05/09/19 0738 05/10/19 0538 NA 135* 140 137 137 K 3.0* 3.0* 3.3* 3.7 CL 98* 107 103 103 CO2 29.7 30.2 30.0 27.9 AGAP 7.3 2.8* 4.0* 6.1 BUN 13 13 16 20* CR 1.09* 0.84 0.80 0.75 BUNCREATININ 11.9 15.6 20.1 26.6* GFRNON 54* 73* 78* 84* GFR 62* 85* >90 >90 GLU 353* 135* 261* 174* CA 8.5 7.6* 7.9* 8.1* TP 7.8 -- -- -- ALB 3.1* -- -- -- TBIL 0.8 -- -- -- ALKP 58 -- -- -- AST 32 -- -- -- ALT 28 -- -- -- Recent Labs Lab 05/08/19 0616 HGBA1C 11.4* No results for input(s): APTT, INR, PTT in the last 168 hours. No results for input(s): TROP, TROPIWB, CKMB, CPK in the last 168 hours. Recent Labs Lab 05/07/19 1232 05/07/19 1417 05/07/19 1640 LACTICACID 3.9* 3.2* 3.8* No results for input(s): PH, PCO2, PO2, [id number], BICARBWB, BASEDEFICIT, BASEEXCESS in the [id number] hours. No results found for this or any previous visit. Imaging Usv Art Rest W Rebecca Low Ext Result Date: 05/11/2019 ARTERIAL DOPPLER - REBECCA BILATERAL LOWER EXTREMITY VASCULAR LAB Pat.Name: IRIS GIL.ID:[id number] .Date: 05/08/2019 Refer.: Rick Glez Exam Time: 10:48:00 AM Study Type:FRANCISCO VS Arterial Doppler Legs BRENDON Age: 11 1955,64Y Sex: FEMALE Sonogrphr: THAI Benjamin Pat. Stat.:Inpatient Room: [facility] History / Clinical: LLE non healing wound; PMH- breast CA, DM, HTN, Chronic LE wounds; BMI 38, cellulitis, Prior Rt REBECCA 0.72, toe index 0.49; Lt REBECCA 0.76, toe index 0.52 Procedures: Doppler waveforms, Digit PPG, Systolic Pressures w/REBECCA Race: B ++++++++++++++++++++++++++++++++++++ SUMMARY: ++++++++++++++++++++++++++++++++++++ Rom REBECCA Criteria: >1.30 = falsely elevated, calcified vessels; 1.00-1.29 = no signif ischemia at rest ; .80-.99 = mild PAD, asymptomatic; .50-.79 = moderate PAD, claudication; <.50 = severe PAD, rest pain; <.30 = critical PAD, necrosis, poor healing (Digits: DBI >.60 Normal; <.60 Abnormal) (Positive Stress eval: REBECCA decrease of >.20 or>20% pressure drop) Right leg: Common Femoral waveform is triphasic, high amplitude; Popliteal mono- biphasic, medium amplitude; Posterior Tibial biphasic, high amplitude with REBECCA 0.675 ; DP/Anterior Tibial biphasic, low amplitude with REBECCA 0.69 . Digit flow by PPG is low amplitude with DBI 0.225 . Left leg: Common Femoral waveform is triphasic, high amplitude; Popliteal biphasic, high amplitude; Posterior Tibial biphasic, medium amplitude with REBECCA 0 ; DP/Anterior Tibial biphasic, medium amplitude with REBECCA 0.615 . Digit flow by PPG is medium amplitude with DBI 0.23 . Patient refused BP in left arm due to PCP recommendation Compared to previous exam done 01/08/2019 , there is mild disease progression, on the left. CONCLUSION: REBECCA right leg 0.690, with toe index 0.225 , in the range of moderate ischemia, claudication. Waveforms suggestive of femoral-popliteal disease. REBECCA left leg 0.615 with toe index 0.23 , in the range of moderate ischemia, claudication. Waveforms suggestive of femoral-popliteal disease, infrageniculate disease. Recommend follow up in 1 year. ++++++++++++++++++++++++++++++++++++ FINDINGS: ++++++++++++++++++++++++++++++++++++ ++++++++++++++++++++++++++++++++++++ MEASUREMENTS: ++++++++++++++++++++++++++++++++++++ DOPPLER Left Dist Pop A Dist Pop A PSV 81.4 cm/s Left Dist EMERGENCY NURSE Dist EMERGENCY NURSE PSV 76.3 cm/s Left Dist MAKAYLA Dist MAKAYLA PSV 53.1 cm/s Right SLURRY PLANT OPERATOR SLURRY PLANT OPERATOR PSV 108 cm/s Right Dist Pop A Dist Pop A PSV 57.4 cm/s Right Dist EMERGENCY NURSE Dist EMERGENCY NURSE PSV 85.7 cm/s Right Dist MAKAYLA Dist MAKAYLA PSV 33.4 cm/s PRESSURES Right Brachial Brach P 200 mmHg Right Ankle DP AnkleDP P 138 mmHg Right Ankle PT AnklePT P 135 mmHg Right Great Toe GreatToe P 45 mmHg Right REBECCA PT REBECCA PT 0.675 Right REBECCA DP REBECCA DP 0.69 Right TBI TBI 0.225 Left Ankle DP AnkleDP P 123 mmHg Left Ankle PT AnklePT P 0 mmHg Left Great Toe GreatToe P 46 mmHg Left REBECCA PT REBECCA PT 0 Left REBECCA DP REBECCA DP 0.615 Left TBI TBI 0.23 Signed 05/11/2019 01:33 PM Spenser White M.D. Ir Midline Placement Greater 3yr Result Date: 05/09/2019 EXAMINATION: Ultrasound fluoroscopy guided peripherally inserted midline catheter placement REASON FOR EXAM: 64 female. Venous access needed. Midline placement requested. COMPARISON: None TECHNIQUE: Informed verbal and written consent was obtained from the patient, patient's medical decision maker. Procedure were discussed including the alternatives, benefits and risks. Patient was positioned supine. The right upper arm was assessed for venous patency. The basilic vein is diminutive. A large brachial vein was identified and targeted in the mid upper arm. Patency was confirmed with ultrasound and an image stored and saved in the imaging archive. The right upper arm was prepped and draped in usual sterile fashion. Lidocaine 1% was used for local anesthesia. 21-gauge micropuncture needle access was obtained with fluoroscopic confirmation of intravascular wire access. A small skin incision was then made. Needle was removed and midline sheath advanced over the wire. Wi re and dilator removed and a 4 Cameroonian 20 cm single midline was advanced to the level of the axillary vein. Position was confirmed fluoroscopically. Catheter was secured to the skin with adhesive dressing. Patient tolerated the procedure well. There were no immediate complications. Fluoroscopy time:2 seconds Number of images: 2 saved IMPRESSION: 1. Technically successful, right mid arm brachial 4 Cameroonian 20 cm midline catheter placement. : No results found for this visit on 05/07/19. Assessment & Plan Sepsis Present with tachycardia, tachypnea, lactic acidosis. ?? Secondary to LLE cellulitis +/- UTI Continue ceftriaxone. ??MRSA screen negative. Switch vanc to IV doxycycline. Monitor CBC Follow-up blood and urine cultures -> NGTD Wound??cultures with prelim findings. Follow-up ID consulted, appreciate recs- currently on fortaz and doxy ?? Left LE Cellulitis Antibiotics as above Resolving ?? Pseudomonas Wound Infection Distal LLE Consult ID for abx duration, to see in am R/O colonization ?? UTI Urine cx with no growth Significant white sediment noted concerning for large amount of candiduria. Will consider treating if urine does not clear soon with hydration and encouragement to void often. R/O ?? Type 2 diabetes mellitus complicated by hyperlipidemia Noncompliant with medications since discharge from assisted Sliding scale insulin A1c 11.4, indicating poor glycemic control Re-evaluate medications on discharge. Not requiring a large amount of insulin here. Suspect dietarynoncompliance ?? Essential hypertension Normotensive Noncompliant with medications as above Resumed valsartan Monitor and adjust as needed ?? Hyperlipidemia Resumed statin ?? Hypothyroidism Resumed levothyroxine No utility of checking TFTs at this time as patient has not taken medication since last month. Check TFTs in 4 to 6 weeks ?? Hypokalemia Replete and Monitor ?? Stage??3-4??ulcer of distal left lower extremity Concern for ischemic ulcer Present for several months Previously seen by Dr. Guy, vascular surgery who has been consulted. ??Recommendations appreciated. Obtain ABIs??-- > moderate PAD noted Awaiting Dr. Guy recommendations Wound care??has been consulted?? Moderate arterial insufficiency per 05/10: Dr. Guy didn't recommend debridement Some purulent drainage on gauze - continue current regimen ?? Stage III pressure ulcers to bilateral upper thighs posteriorly Present on admission Wound care ?? Normocytic anemia Checked iron studies, B12, folate. No deficiency noted. Monitor Hgb 7.7 today, follow CBC closely ?? History of breast cancer ?? Plan of care discussed with the patient and primary nurse. SHARON ORTEZ NP Cosigned by Anali Agrawal MD at 05/11/2019 3:08 PM [employer] * Rizwana Robles, EMERGENCY NURSE - 05/11/2019 11:26 AM CST 05/11/19 1100 Therapy Visit Ordering Provider [facility] [id number]: Patient agreeable to get up to the chair with therapy. Reason for admission sepsis, cellulitis, UTI Relevant Comorbidities/ Personal Factors to PT DM, HLD, stage 3-4 ulcer on L LE, stage 3 B posterior proximal thigh ulcer, breast cancer, HTN Verified Two Patient Identifiers Yes Patient consents to therapy Yes Acute Inpatient PT Time Calculation PT Start Time 1100 PT Stop Time 1117 PT Time Calculation (min) 17 min Precautions Precautions Yes/No Yes General Precautions Bed Alarm;Chair Alarm;Fall Risk Instructed on Precautions Yes;Needs reinforcement and education Other pt has a purewick external catheter Pain Pain Yes Pain Score (unrated) Location L LE Interventions Informed RN;Re-direction;Relaxation;Re-positioning Activity Tolerance Endurance Tolerates 10 - 20 min activity with rests Cognition Overall Cognitive Status Impaired Bed Mobility Supine to Sit Mod assist to left;Max assist to left Other (Comment) Patient is able to assist slightly with her bed mobility, however still struggles to perform without significant assist. TRANSFERS Sit to Stand Min assist Bed to Chair Min assist Other (Comment) Cues required to keep hands on the walker for transfer. Slow guadalupe with transfers. Balance Sitting - Static Min Assist Sitting - Dynamic Min Assist Standing - Static Mod Assist;Support of both upper extremities Standing - Dynamic Min Assist;Support of both upper extremities Patient/Family Training Bed Mobility x Transfer Training x Precautions x Recommendation PT Recommendation PT during Hospitalization;PT at Long-Term Facility;Home with assistance;Home PT (SNF vs. home PT pending prgress & amount of assist available) PT Equipment Recommended To Be Determined Plan PT Treatments/Interventions Gait Training;Therapeutic Exercises;Therapeutic Activities;Neuromuscular re-education Progress Slow progress, decreased activity tolerance PT Frequency Daily;BID;6 times/week If this is the last treatment note,it will serve as the discharge summary Yes End of Session Safety End of Session Safety Chair alarm set/activated;Call light within reach;Nursing aware of session [employer] * Spenser White MD - 05/11/2019 7:58 AM CST Progress Note ASSESSMENT Assessment/Plan: Principal Problem: Sepsis (CMS/HCC) SNOMED CT(R): SEPSIS L posterior calf clean superficial small ulcer Dressing changes Would plan for outpatient management for ulcer On Fortaz, wound colonized w/ Pseudo SUBJECTIVE Interval History: The patient denies complaints at this time.. Scheduled Meds: ??? atorvastatin 80 mg Oral Daily ??? cefTAZidime 2 g Intravenous Q8H ??? collagenase Topical Daily ??? doxycycline 100 mg Intravenous Q12H ??? enoxaparin 40 mg Subcutaneous Q24H ??? insulin lispro 0-16 Units Subcutaneous TID AC And ??? insulin lispro 0-8 Units Subcutaneous Nightly at bedtime ??? levothyroxine 100 mcg Oral Daily ??? losartan 100 mg Oral Daily Continuous Infusions: ??? sodium chloride 100 mL/hr at 05/10/19 2321 PRN Meds:acetaminophen, hydrALAZINE, ihzntqalt-lqvzxybk-bbvbxdqbbmq, ondansetron, polyethylene glycol, traMADol OBJECTIVE Vital signs in last 24 hours: Temp: [98 ??F (36.7 ??C)-98.5 ??F (36.9 ??C)] 98.4 ??F (36.9 ??C) Pulse: [83-95] 83 Resp: [18-20] 18 BP: (121-157)/(53-72) 137/61 Intake/Output last 3 shifts: I/O last 3 completed shifts: In: 240 [P.O.:240] Out: 1800 [Urine:1800] Intake/Output this shift: No intake/output data recorded. General Appearance: Alert, cooperative, no distress, appears stated age Head: Normocephalic, without obvious abnormality, atraumatic Neck:Supple, symmetrical, trachea midline, no adenopathy; thyroid: no enlargement/tenderness/nodules; no carotid bruit or JVD Back: Symmetric, no curvature, ROM normal, no CVA tenderness Lungs: Clear to auscultation bilaterally, respirations unlabored Chest Wall: No tenderness or deformity Heart: Regular rate and rhythm, S1 and S2 normal, no murmur, rub or gallop Abdomen: Soft, non-tender, bowel sounds active all four quadrants, no masses, no organomegaly Extremities:Extremities normal, atraumatic, no cyanosis or edema Wound: 2x2.5 cm L post calf ulcer clean & superficial, good Granulation, no exudate Pulses: B SLURRY PLANT OPERATOR 2+ and symmetric all extremities Skin:Skin color, texture, turgor normal, no rashes or lesions Neurologic:CNII-XII intact, normal strength, sensation and reflexes throughout Labs: Recent Labs Lab 05/11/19 0636 WBC 7.8 HGB 7.7* PLT 265 Recent Labs Lab 05/10/19 0538 NA 137 K 3.7 CL 103 CO2 27.9 AGAP 6.1 BUN 20* CR 0.75 BUNCREATININ 26.6* GFRNON 84* GFR >90 GLU 174* CA 8.1* No results for input(s): APTT, INR, PTT in the last 168 hours. [employer] * Ekaterina Barlow MD - 05/10/2019 7:21 PM CST Hospital Daily Progress Note History Complains of back pain. Physical Exam Filed Vitals: 05/09/19 1453 05/09/19 1944 05/10/19 0554 05/10/19 1233 BP: 133/57 148/70 (!) 157/72 Pulse: 95 90 95 Resp: Temp: 98.2 ??F (36.8 ??C) 98.4 ??F (36.9 ??C) 98.5 ??F (36.9 ??C) TempSrc: Oral Oral Oral SpO2: 100% 99% 99% 99% Weight: 92.4 kg (203 lb 11.3 oz) Height: Intake/Output Summary (Last 24 hours) at 05/10/2019 1921 Last data filed at 05/10/2019 1700 Gross per 24 hour Intake 340 ml Output 1300 ml Net -960 ml Physical Exam Constitutional: She appears well-developed and well-nourished. HENT: Head: Normocephalic and atraumatic. Eyes: Conjunctivae are normal. Cardiovascular: Normal rate, regular rhythm and normal heart sounds. Pulmonary/Chest: No respiratory distress. She has no wheezes. She has no rales. She exhibits no tenderness. Decrease breath sounds Abdominal: Soft. Bowel sounds are normal. Skin: No erythema of either leg. Left posterior calf wound Lab Results Component Value Date NA 137 05/10/2019 K 3.7 05/10/2019 CL 103 05/10/2019 CO2 27.9 05/10/2019 AGAP 6.1 05/10/2019 BUN 20 (H) 05/10/2019 CR 0.75 05/10/2019 BUNCREATININ 26.6 (H) 05/10/2019 GFRNON 84 (L) 05/10/2019 GFR >90 05/10/2019 GLU 174 (H) 05/10/2019 CA 8.1 (L) 05/10/2019 Lab Results Component Value Date WBC 8.0 05/10/2019 HGB 7.8 (L) 05/10/2019 PLT 267 05/10/2019 Lab Results Component Value Date TP 7.8 05/07/2019 ALB 3.1 (L) 05/07/2019 ALT 28 05/07/2019 HGBA1C 11.4 (H) 05/08/2019 Cultures: Blood: Results for orders placed or performed during the hospital encounter of 05/07/19 (from the past 168hour(s)) CULTURE, BACTERIA, BLOOD Collection Time: 05/07/19 12:31 PM Result Value Ref Range Spec. Description BLOOD Special Requests: NO SPECIAL REQUEST Culture Result: NO GROWTH 3 DAYS CULTURE, BACTERIA, BLOOD Collection Time: 05/07/19 12:17 PM Result Value Ref Range Spec. Description BLOOD Special Requests: NO SPECIAL REQUEST Culture Result: NO GROWTH 3 DAYS Urine: Results for orders placed or performed during the hospital encounter of 05/07/19 (from the past 168hour(s)) CULTURE URINE Collection Time: 05/07/19 4:40 PM Result Value Ref Range Spec. Description URINE STRAIGHT CATH Special Requests: NO SPECIAL REQUEST Culture Result: NO GROWTH 2 DAYS Respiratory: Ir Midline Placement Greater 3yr Result Date: 05/09/2019 IMPRESSION: 1. Technically successful, right mid arm brachial 4 Cameroonian 20 cm midline catheter placement. Assessment Sepsis Present with tachycardia, tachypnea, lactic acidosis. ?? Secondary to LLE cellulitis +/- UTI Continue ceftriaxone. ??MRSA screen negative. Switch vanc to IV doxycycline. Monitor CBC Follow-up blood and urine cultures -> NGTD Wound??cultures with prelim findings. Follow-up ?? Left LE Cellulitis Antibiotics as above Resolving Pseudomonas Wound Infection Distal LLE R/O colonization UTI Urine cx with no growth Significant white sediment noted concerning for large amount of candiduria. Will consider treating if urine does not clear soon with hydration and encouragement to void often. R/O ?? Type 2 diabetes mellitus complicated by hyperlipidemia Noncompliant with medications since discharge from assisted Sliding scale insulin A1c 11.4 Re-evaluate medications on discharge. Not requiring a large amount of insulin here. Suspect dietarynoncompliance Essential hypertension Noncompliant with medications as above Resumed valsartan Monitor and adjust as needed ?? Hyperlipidemia Resumed statin ?? Hypothyroidism Resumed levothyroxine No utility of checking TFTs at this time as patient has not taken medication since last month. Check TFTs in 4 to 6 weeks ?? Hypokalemia Replete Monitor ?? Stage??3-4??ulcer of distal left lower extremity Concern for ischemic ulcer Present for several months Previously seen by Dr. Guy, vascular surgery who has been consulted. ??Recommendations appreciated. Obtain ABIs -- > moderate PAD noted Awaiting Dr. Guy recommendations Wound care has been consulted Moderate arterial insufficiency per 05/10: Dr. Guy didn't recommend debridementSome purulent drainage on gauze ?? Stage III pressure ulcers to bilateral upper thighs posteriorly Present on admission Wound care Wounds don't appear infected. ?? Normocytic anemia Checked iron studies, B12, folate. No deficiency noted. Monitor Decreasing H/H ?? History of breast cancer ?? Plan Repeat CBC Stools for OB ID consult re: treatment Pseudomonas EKATERINA BARLOW MD [employer] * Silvia Almonte PTA - 05/10/2019 3:38 PM CST 05/10/19 1345 Therapy Visit Ordering Provider Tiago Peraza [id number]; Pt was supine in bed and agreed to work with therapy Reason for admission sepsis, cellulitis, UTI Relevant Comorbidities/ Personal Factors to PT DM, HLD, stage 3-4 ulcer on L LE, stage 3 B posterior proximal thigh ulcer, breast cancer, HTN Verified Two Patient Identifiers Yes Patient consents to therapy Yes Acute Inpatient PT Time Calculation PT Start Time 1345 PT Stop Time 1415 PT Time Calculation (min) 30 min Precautions Precautions Yes/No Yes General Precautions Bed Alarm;Chair Alarm;Fall Risk Instructed on Precautions Yes;Needs reinforcement and education Other pt has a purewick external catheter Pain Pain Yes Pain Score (did not rate ) Location L LE Interventions Informed RN;Re-positioning Activity Tolerance Endurance Tolerates 20 - 30 min activity with rests Cognition Overall Cognitive Status Impaired Bed Mobility Supine to Sit Mod assist to left;Max assist to left Other (Comment) Pt demonstrated maximal stiffiness with supine to sit with additional time with verbal instruction for correct technique with bed rails and pt sat on the EOB with poor sitting balancethat unstable until scooting to EOB with B feet touching TRANSFERS Sit to Stand Mod assist;Min assist Bed to Chair Min assist Other (Comment) Pt was able to sit to stand with min to mod assist with verbal instruction for correct hand placement prior to stand or sit down for safety and transfer from bed to recliner with W. Wwith min assist with moderate shuffling Gait Gait Assistance Min assist Assistive Device 2 Wheeled walker Ambulation Distance (Feet) 7 feet Pattern Shuffle steps;R Decreased stance time;R Foot flat;L Foot flat Other (Comment) Pt was able to ambulate with W. W with min assist with poor dynamic balance with moderate shuffling Balance Sitting - Static Min Assist Sitting - Dynamic Min Assist Standing - Static Mod Assist;Support of both upper extremities Standing - Dynamic Min Assist;Support of both upper extremities Exercises Sitting LE Exercise B LE's; ankle pumps, knee extension, marching, hip abd/add x 10-15 reps with rest breaks Patient/Family Training Bed Mobility x Transfer Training x Gait Training x Exercise Program x Recommendation PT Recommendation PT during Hospitalization;PT at Long-Term Facility;Home with assistance;Home PT (SNF vs. home PT pending prgress & amount of assist available) PT Equipment Recommended To Be Determined Plan PT Treatments/Interventions Gait Training;Therapeutic Exercises;Therapeutic Activities;Neuromuscular re-education Progress Slow progress, decreased activity tolerance PT Frequency Daily;BID;6 times/week PT plan for next session Continue on bed mobility, transfers and balance If this is the last treatment note,it will serve as the discharge summary Yes End of Session Safety End of Session Safety Chair alarm set/activated;Call light within reach [employer] * Lucía Ohara - 05/10/2019 1:32 PM CST Needs much encouragement to participate with ADL'S declines to ge OOB at this time [employer] * VIANEY Michel - 05/10/2019 11:17 AM CST [employer] met with pt at bedside to discuss SNF placement based on PT recs. At this time pt is still refusing SNF stating she can manage at home and that her daughter can help her. [employer] explained that pt will need one of her wound dressings changed daily and the others every three days. [employer] explained thatHH will not come out daily. Pt voiced understanding and stated that her daughter can help change dressings on the days HH is not there. Pt has had [facility] in the past, referral sent to SPENCER Goodman with [facility] who is meeting with pt and will let [employer] know if they can accept pt back. Will continue to follow for d/c planning. Possibly w/e d/c. [employer] * Zhao Martin RN - 05/10/2019 5:00 AM CST Problem: Discharge Planning Goal: Knowledge of discharge instructions Outcome: Progressing [employer] * Lucía Ohara - 05/09/2019 2:39 PM CST PLANS TO GO T IR FOR MIDLINE TO CONTINUE WIT ANTIBIOTICS, QUESTIONS ANSWERED A THEY ARISE [employer] * Ekaterina Singh, PT - 05/09/2019 2:37 PM CST 05/09/19 1400 Therapy Visit Ordering Provider Tiago PT Received On 05/09/19 Subjective Room 504: Pt received lying supine in bed. Pt states that she is feeling a little bettertoday and is agreeable to PT evaluation. Reason for admission sepsis, cellulitis, UTI Relevant Comorbidities/ Personal Factors to PT DM, HLD, stage 3-4 ulcer on L LE, stage 3 B posterior proximal thigh ulcer, breast cancer, HTN Verified Two Patient Identifiers Yes Patient consents to therapy Yes Acute Inpatient PT Time Calculation PT Start Time 1319 PT Stop Time 1358 PT Time Calculation (min) 39 min Precautions Precautions Yes/No Yes General Precautions Bed Alarm;Chair Alarm;Fall Risk Instructed on Precautions Yes;Needs reinforcement and education Other pt has a purewick catheter Home Living Type of Home House Home Layout One level Home Accessibility 0 Steps to enter Home Equipment 2 Wheeled walker;Wheelchair-manual Additional Comments Pt had been living with her daughter since March. Prior to that, she was living at SNF. Pt reports her daughter works so she is gone most of the day. Prior Function Level of [place] Independent with functional transfers;Independent with ambulation;Needs assistance with homemaking Device used at baseline 2 Wheeled walker;Wheelchair-manual Baseline Ambulation Distance/Assistance household ambulator Fall History Yes Reason for fall slipped in kitchen trying to get into her wheelchair Most recent fall last week How many falls in the past year? 1 Lives With Daughter;Family (lives with her daughter and grandchildren ) Receives Help From Family Comments Pt appears to be a questionable historian regarding prior level of function. Pt states that she was able to ambulate with a walker at home when she initially left the SNF but recently has been unable to walk and spends all day in a wheelchair. Pt reports that she sleeps in a wheelchair andher family members used to help her get around but they are not home very often to assist her. Pt states she is able to get herself dressed and feed herself but requires help with bathing. Pain Pain Yes Pain Score (pt does not quantify) Location L LE Interventions Relaxation;Re-direction;Re-positioning Activity Tolerance Endurance Tolerates 30 min activity with rests Activity Tolerance Comments fair tolerance limited by decreased endurance. Pt denies any SOB with activity but reports dizziness upon sitting up at the edge of the bed. Pt reports fatigue after transferring to the chair. Cognition Overall Cognitive Status Impaired Attention Span Attends with cues to redirect Memory Decreased recall of recent events Orientation Level Oriented X4 Following Commands Follows multistep commands consistently Safety Judgment Decreased awareness of need for assistance Awareness of Errors Assistance required to correct errors made Sensation Additional Comments pt denies any numbness or tingling at this time RLE Assessment RLE Comment R hip flexion 3/5, R knee extension and flexion 4/5, R ankle dorsiflexion 4/5 LLE Assessment LLE Comment L hip flexion 2+ to 3-/5, L knee extension and flexion 4/5, L ankle dorsiflexion 4/5. Pt reports pain and difficulty with hip flexion on L LE Bed Mobility Rolling Min assist to left Supine to Sit Mod assist to left Other (Comment) pt required assistance with moving B LEs out of bed TRANSFERS Stand Pivot Transfers Mod assist;Assist of 2 Sit to Stand Mod assist;Assist of 2 Bed to Chair Mod assist;Assist of 2 Other (Comment) Transfer completed without use of an AD Gait Gait Assistance MEÑO Other (Comment) not assessed due to dec endurance Stairs Other (Comment) pt reports she does not have stairs at home Balance Sitting - Static SBA Sitting - Dynamic Min Assist Standing - Static Mod Assist;Assist of 2 Persons Standing - Dynamic Mod Assist;Assist of 2 Persons Other (Comment) pt exhibited retropulsion upon initial sitting but was able to self correct with verbal cues Patient/Family Training Bed Mobility x Transfer Training x Precautions x Assessment Personal Factors/Comorbidities Impacting Care 3-4 personal factors/comorbidities Examination of Body Systems High (at least 4 Elements) Objectives of Body Systems Impaired bed mobility;Impaired ambulation;Impaired transfers;Impaired balance;Decreased LE strength;Decreased endurance Clinical Presentation of Patient Evolving and changing characteristics Complexity Level of Evaluation High Prognosis Fair PT Assess/Eval Other (Comment) Pt is a 64 year old female admitted to the hospital for sepsis, cellulitis and UTI. For the past month, the pt has been living in a house with her daughter where she states she used to be able to walk but has recently used a wheelchair to get around. Prior to March,pt was living at SNF. Pt currently requires modA for bed mobility and modA x2 for STS and transfers. Pt will benefit from skilled therapy to address deficits and improve safety and independence with all mobility. Recommendation PT Recommendation PT during Hospitalization;PT at Long-Term Facility;Home with assistance;Home PT (SNF vs. home PT pending prgress & amount of assist available) PT Equipment Recommended To Be Determined Plan PT Treatments/Interventions Gait Training;Therapeutic Exercises;Therapeutic Activities;Neuromuscular re-education PT Frequency Daily;BID;6 times/week PT plan for next session transfer training, bed mobility, LE exercise, gait training pending progress If this is the last treatment note,it will serve as the discharge summary Yes End of Session Safety End of Session Safety Chair alarm set/activated;Call light within reach;Nursing aware of session;Transfer status education [employer] * Grant Guardado - 05/09/2019 2:16 PM CST 05/09/19 1300 Advance Directives (For Healthcare) Advance Directive Patient has advance directive, copy in chart Type of Healthcare Directive Durable power of landscape foreman for health care Information Provided on Healthcare Directives Yes Healthcare Agent's Name Ailyn Turner Healthcare Agent's [employer] * VIANEY Michel - 05/09/2019 2:05 PM CST Pt care discussed during rounds this date. Possible d/c Monday or Monday after IV antibiotics. Still awaiting PT recs for home vs SNF. [employer] reached out to PT to see today. Will continue to follow for d/c planning. [employer] * Loraine Penaloza MD - 05/09/2019 10:25 AM CST Hospitalist Daily Progress Note Subjective Patient had a large BM last night and urinated well after. Still needs a lot of encouragement to urinate often. Feeling better overall Objective Filed Vitals: 05/08/19 0904 05/08/19 1345 05/08/19 1928 05/09/19 0300 BP: 137/65 148/77 138/78 (!) 153/69 Pulse: 77 79 75 76 Resp: 18 16 16 Temp: 98.1 ??F (36.7 ??C) 98.3 ??F (36.8 ??C) 97.7 ??F (36.5 ??C) 97.8 ??F (36.6 ??C) TempSrc: Oral Oral Oral Oral SpO2: 98% 100% 98% 93% Weight: Height: Intake/Output 24H Total: Intake/Output Summary (Last 24 hours) at 05/09/2019 1029 Last data filed at 05/09/2019 0700 Gross per 24 hour Intake 1730 ml Output 500 ml Net 1230 ml Physical Exam: -GENERAL: No acute distress, Well nourished -HEAD: Normocephalic, Atraumatic -EYES: Extraocular movements intact -LUNGS: Effort normal, Clear to auscultation bilaterally, No wheezes, No crackles, No ronchi -CVS: Regular rate and rhythm, S1 and S2 normal -EXT: no edema -NEURO: Awake, alert, oriented, No gross neuro deficits -SKIN: ~3 distal left LE ulcer with pink base Medications ??? atorvastatin 80 mg Oral Daily ??? cefTRIAXone 2 g Intravenous Q24H ??? collagenase Topical Daily ??? doxycycline 100 mg Intravenous Q12H ??? enoxaparin 40 mg Subcutaneous Q24H ??? insulin lispro 0-16 Units Subcutaneous TID AC And ??? insulin lispro 0-8 Units Subcutaneous Nightly at bedtime ??? levothyroxine 100 mcg Oral Daily ??? losartan 100 mg Oral Daily ??? sodium chloride 100 mL/hr at 05/09/19 0226 acetaminophen, hydrALAZINE, yetkhskoc-tirjqkjf-hjkolevooxo, ondansetron, polyethylene glycol, traMADol Labs, Imaging, Other Studies Recent Labs Lab 05/07/19 1232 05/08/19 0616 05/09/19 0738 WBC 6.8 5.1 7.0 RBC 3.38* 3.04* 3.06* HGB 9.9* 8.9* 8.9* HCT 30.4* 27.4* 27.4* MCV 89.9 90.1 89.5 MCH 29.3 29.3 29.1 MCHC 32.6 32.5 32.5 PLT 314 283 271 RDW 13.6 13.6 13.9 MPV 9.8 9.9 9.7 PERNEU 74.0 71.3 79.7 PERLYM 14.8 16.2 10.4 PERMON 6.9 7.9 6.6 LYMC 1.01 0.82* 0.72* MONOC 0.47 0.40 0.46 EOSC 0.13 0.15 0.10 BASOC 0.04 0.03 0.04 DTYPE AUTOMATED DIFFERENTIAL AUTOMATED DIFFERENTIAL AUTOMATED DIFFERENTIAL Recent Labs Lab 05/07/19 1232 05/08/19 0616 NA 135* 140 K 3.0* 3.0* CL 98* 107 CO2 29.7 30.2 AGAP 7.3 2.8* BUN 13 13 CR 1.09* 0.84 BUNCREATININ 11.9 15.6 GFRNON 54* 73* GFR 62* 85* GLU 353* 135* CA 8.5 7.6* TP 7.8 -- ALB 3.1* -- TBIL 0.8 -- ALKP 58 -- AST 32 -- ALT 28 -- Recent Labs Lab 05/08/19 0616 HGBA1C 11.4* No results for input(s): APTT, INR, PTT in the last 168 hours. No results for input(s): TROP, TROPIWB, CKMB, CPK in the last 168 hours. Recent Labs Lab 05/07/19 1232 05/07/19 1417 05/07/19 1640 LACTICACID 3.9* 3.2* 3.8* No results for input(s): PH, PCO2, PO2, [id number], BICARBWB, BASEDEFICIT, BASEEXCESS in the [id number] hours. No results found for this or any previous visit. Imaging Usv Art Rest W Rebecca Low Ext Result Date: 05/08/2019 ARTERIAL DOPPLER - REBECCA BILATERAL LOWER EXTREMITY VASCULAR LAB Pat.Name: IRIS GIL Gema.ID:[id number] St.Date: 05/08/2019 Refer.MD: Rick Glez Exam Time: 10:48:00 AM Study Type:FRANCISCO VS Arterial Doppler Legs BRENDON Age: 11 1955,64Y Sex: FEMALE Sonogrphr: THAI Benjamin Pat. Stat.:Inpatient Room: 504 History / Clinical: LLE non healing wound; PMH- breast CA, DM, HTN, Chronic LE wounds; BMI 38, cellulitis, Prior Rt REBECCA 0.72, toe index 0.49; Lt REBECCA 0.76, toe index 0.52 Procedures: Doppler waveforms, Digit PPG, Systolic Pressures w/REBECCA Race: B ++++++++++++++++++++++++++++++++++++ SUMMARY: ++++++++++++++++++++++++++++++++++++ Rom REBECCA Criteria: >1.30 = falsely elevated, calcifiedvessels; 1.00-1.29 = no signif ischemia at rest ; .80-.99 = mild PAD, asymptomatic; .50-.79 = moderate PAD, claudication; <.50 = severe PAD, rest pain; <.30 = critical PAD, necrosis, poor healing (Digits: DBI >.60 Normal; <.60 Abnormal) (Positive Stress eval: REBECCA decrease of >.20 or>20% pressure drop) Right leg: Common Femoral waveform is triphasic, high amplitude; Popliteal mo no-biphasic, medium amplitude; Posterior Tibial biphasic, high amplitude with REBECCA 0.675 ; DP/Anterior Tibial biphasic, low amplitude with REBECCA 0.69 . Digit flow by PPG is low amplitude with DBI 0.225 . Left leg: Common Femoral waveform is triphasic, high amplitude; Popliteal biphasic, high amplitude; Posterior Tibial biphasic, medium amplitude with REBECCA 0 ; DP/Anterior Tibial biphasic, medium amplitude with REBECCA 0.615 . Digit flow by PPG is medium amplitude with DBI 0.23 . Patient refused BP in left arm due to PCP recommendation Compared to previous exam done 01/08/2019 , there is mild disease progression, on the left. CONCLUSION: ++++++++++++++++++++++++++++++++++++ MEASUREMENTS: +++++++++++++ +++++++++++++++++++++++ DOPPLER Left Dist Pop A Dist Pop A PSV 81.4 cm/s Left Dist EMERGENCY NURSE Dist EMERGENCY NURSE PSV 76.3 cm/s Left Dist MAKAYLA Dist MAKAYLA PSV 53.1 cm/s Right SLURRY PLANT OPERATOR SLURRY PLANT OPERATOR PSV 108 cm/s Right Dist Pop A Dist Pop A PSV 57.4 cm/s Right Dist EMERGENCY NURSE Dist EMERGENCY NURSE PSV 85.7 cm/s Right Dist MAKAYLA Dist MAKAYLA PSV 33.4 cm/s PRESSURES Right Brachial Brach P 200 mmHg Right Ankle DP AnkleDP P 138 mmHg Right Ankle PT AnklePT P 135 mmHg Right Great Toe GreatToe P 45 mmHg Right REBECCA PT REBECCA PT 0.675 Right REBECCA DP REBECCA DP 0.69 Right TBITBI 0.225 Left Ankle DP AnkleDP P 123 mmHg Left Ankle PT AnklePT P 0 mmHg Left Great Toe GreatToe P46 mmHg Left REBECCA PT REBECCA PT 0 Left REBECCA DP REBECCA DP 0.615 Left TBI TBI 0.23 Unsigned Spenser White M.D. EKG: No results found for this visit on 05/07/19. Assessment & Plan Sepsis Present with tachycardia, tachypnea, lactic acidosis. ?? Secondary to LLE cellulitis +/- UTI Continue ceftriaxone. ??MRSA screen negative. Switch vanc to IV doxycycline. Monitor CBC Follow-up blood and urine cultures -> NGTD Wound??cultures with prelim findings. Follow-up ?? Left LE Cellulitis Antibiotics as above UTI Urine cx with no growth Significant white sediment noted concerning for large amount of candiduria. Will consider treating if urine does not clear soon with hydration and encouragement to void often. ?? Type 2 diabetes mellitus complicated by hyperlipidemia Noncompliant with medications since discharge from assisted Sliding scale insulin A1c 11.4 Re-evaluate medications on discharge. Not requiring a large amount of insulin here. Suspect dietarynoncompliance Essential hypertension Noncompliant with medications as above Resumed valsartan Monitor and adjust as needed ?? Hyperlipidemia Resumed statin ?? Hypothyroidism Resumed levothyroxine No utility of checking TFTs at this time as patient has not taken medication since last month. Check TFTs in 4 to 6 weeks ?? Hypokalemia Replete Monitor ?? Stage??3-4??ulcer of distal left lower extremity Concern for ischemic ulcer Present for several months Previously seen by Dr. Guy, vascular surgery who has been consulted. ??Recommendations appreciated. Obtain ABIs -- > moderate PAD noted Awaiting Dr. Guy recommendations Wound care has been consulted ?? Stage III pressure ulcers to bilateral upper thighs posteriorly Present on admission Wound care ?? Normocytic anemia Checked iron studies, B12, folate. No deficiency noted. Monitor ?? History of breast cancer ?? ACP Full code Surrogate decision maker is daughter, Ailyn Davidson Plan of care discussed with RN. Awaiting Vascular recommendations. LORAINE PENALOZA MD [employer] * India Fournier RN - 05/09/2019 6:08 AM CST Problem: Discharge Planning Goal: Knowledge of discharge instructions Outcome: Progressing Problem: Body Temperature - Risk of, Imbalanced Goal: Body temperature within specified parameters Outcome: Progressing Problem: Fluid Volume - Risk of, Imbalanced Goal: Absence of hypovolemia Outcome: Progressing Problem: Fluid Volume - Risk of, Imbalanced Goal: Lactate, serum, within specified parameters Outcome: Progressing Problem: Fluid Volume - Risk of, Imbalanced Goal: Procalciton within specified parameters Outcome: Progressing Problem: Injury - Risk of, Abnormal Serum Glucose Level Goal: Glucose level within specified parameters Outcome: Progressing Problem: Infection - Risk of, Septic Shock Goal: Absence of infection signs and symptoms Outcome: Progressing Problem: Mobility - Impaired Goal: Able to ambulate within specified parameters Outcome: Progressing Problem: Mobility - Impaired Goal: Knowledge of need for increased mobility Outcome: Progressing [employer] * Rosa Fabian MD - 05/08/2019 5:13 PM CST Hospitalist Progress Note Iris Gil Age: 64-year-old Date of : 1955 Subjective: Doing ok Reporting left lower extremity pain however No reported chest pain or shortness of breath Objective: Vitals: 05/08/19 1345 BP: 148/77 Pulse: 79 Resp: 19 Temp: 98.3 ??F (36.8 ??C) SpO2: 100% Wt Readings from Last 3 Encounters: 05/08/19 93.1 kg (205 lb 4 oz) 02/21/19 87.5 kg (193 lb) 12/10/18 90.7 kg (200 lb) -GENERAL: No acute distress, breathing comfortably on room air. -EYES: Extraocular movements intact -ENT: Neck supple, Septum is midline. -LUNG: Clear to auscultation bilaterally, No wheezes, No crackles -CVS: Regular rate rhythm, S1 and S2 normal, No murmurs, -ABDOMEN: Soft, nondistended, Nontender, Bowel sounds observed -EXT: no lower Ext edema. -NEURO: Alert, awake, oriented x3, No gross neuro deficit -SKIN: Skin color, texture, turgor normal. No rashes or lesions Labs: Recent Results (from the past 24 hour(s)) POCT glucose Collection Time: 05/07/19 11:32 PM Result Value Ref Range GLUCOSE POC 229 (H) 70 - 99 mg/dL CULTURE, WOUND, W/GRAM STAIN Collection Time: 05/08/19 3:35 AM Result Value Ref Range Spec. Description LEG,LEFT Special Requests: NO SPECIAL REQUEST Gram Stain Result NO WHITE BLOOD CELLS SEEN Gram Stain Result RARE GRAM POSITIVE COCCI Gram Stain Result RARE GRAM POSITIVE RODS Gram Stain Result RARE GRAM NEGATIVE RODS Culture Result: PENDING BASIC METABOLIC PANEL Collection Time: 05/08/19 6:16 AM Result Value Ref Range GLUCOSE 135 (H) 70 - 99 MG/DL BUN 13 7 - 18 MG/DL CREATININE 0.84 0.55 - 1.02 MG/DL SODIUM 140 136 - 145 MMOL/L POTASSIUM 3.0 (LL) 3.5 - 5.1 MMOL/L CHLORIDE 107 100 - 108 MMOL/L CO2 30.2 21 - 32 MMOL/L CALCIUM 7.6 (L) 8.5 - 10.1 MG/DL ANION GAP 2.8 (L) 5 - 15 MMOL/L BUN CREATININE RATIO 15.6 6 - 26 eGFR Non-Afr. Amer. 73 (L) >90 ML/MIN/1.73 M2 eGFR Afr. Amer. 85 (L) >90 ML/MIN/1.73 M2 CBC W/DIFF AUTOMATED Collection Time: 05/08/19 6:16 AM Result Value Ref Range WBC 5.1 4.5 - 11.0 x10'3/uL RBC 3.04 (L) 4.20 - 5.40 x10'6/uL HGB 8.9 (L) 12.0 - 16.0 G/DL HCT 27.4 (L) 38.0 - 48.0 % MCV 90.1 80.0 - 94.0 FL MCH 29.3 27.0 - 31.0 PG MCHC 32.5 32.0 - 36.0 G/DL RDW 13.6 11.5 - 14.5 % PLT 283 130 - 400 x10'3/uL MPV 9.9 9.3 - 12.2 FL DIFFERENTIAL TYPE AUTOMATED DIFFERENTIAL NEUTROPHILS 71.3 % LYMPHOCYTES 16.2 % MONOCYTES 7.9 % EOSINOPHILS 3.0 % BASOPHILS 0.6 % IMMATURE GRANS 1.0 % ABS. NEUTROPHILS TOTAL 3.62 1.80 - 7.70 x10'3/uL ABS. LYMPHOCYTES 0.82 (L) 1.00 - 4.80 x10'3/uL ABS. MONOCYTES 0.40 0.24 - 0.86 x10'3/uL ABS. EOSINOPHILS 0.15 0.04 - 0.36 x10'3/uL ABS. BASOPHILS 0.03 0.01 - 0.08 x10'3/uL ABS. IMMATURE GRANULOCYTES 0.05 0.00 - 0.49 x10'3/uL FERRITIN Collection Time: 05/08/19 6:16 AM Result Value Ref Range FERRITIN 634.4 (H) 8.0 - 388.0 NG/ML FOLIC ACID SERUM Collection Time: 05/08/19 6:16 AM Result Value Ref Range FOLATE 4.3 3.1 - 17.5 NG/ML VITAMIN B-12 Collection Time: 05/08/19 6:16 AM Result Value Ref Range VITAMIN B12 1,199 254 - 1,320 PG/ML IRON SAT PANEL (IRON,IBC,%SAT) Collection Time: 05/08/19 6:16 AM Result Value Ref Range IRON 43 (L) 50.0 - 170.0 MCG/DL IRON BINDING CAPACITY 170 (L) 250 - 450 MCG/DL IRON SATURATION 25 20 - 55 % HEMOGLOBIN, GLYCOSYLATED Collection Time: 05/08/19 6:16 AM Result Value Ref Range HGB A1C 11.4 (H) 4.2 - 6.3 % ESTIMATED AVERAGE GLUCOSE 280 mg/dL POCT glucose Collection Time: 05/08/19 6:20 AM Result Value Ref Range GLUCOSE POC 147 (H) 70 - 99 mg/dL POCT glucose Collection Time: 05/08/19 11:40 AM Result Value Ref Range GLUCOSE POC 126 (H) 70 - 99 mg/dL POCT glucose Collection Time: 05/08/19 4:08 PM Result Value Ref Range GLUCOSE POC 108 (H) 70 - 99 mg/dL Imaging: Assessment/Plan: ?? Sepsis Present with tachycardia, tachypnea, lactic acidosis. Sepsis identified at 1710 when I examined thepatient. Secondary to UTI and cellulitis Start IV Vanc, ceftriaxone. Monitor creatinine, Vanc trough Follow-up blood and urine cultures Wound cultures MRSA screen ?? Cellulitis, UTI Antibiotics as above ?? Type 2 diabetes mellitus complicated by hyperlipidemia Noncompliant with medications since discharge from assisted Sliding scale insulin Check A1c Essential hypertension Noncompliant with medications as above Resume valsartan Monitor and adjust as needed ?? Hyperlipidemia Resume statin ?? Hypothyroidism Resume levothyroxine No utility of checking TFTs at this time as patient has not taken medication since last month. Check TFTs in 4 to 6 weeks ?? Hypokalemia Replete Monitor ?? Stage 3-4 ulcer of distal left lower extremity Concern for ischemic ulcer Present for several months Previously seen by Dr. Guy, vascular surgery. Will consult. Recommendations appreciated. Obtain ABIs -- > moderate PAD Awaiting Dr. Guy recommendations Wound care has been consulted ?? Stage III pressure ulcers to bilateral upper thighs posteriorly Present on admission Wound care ?? Normocytic anemia Check iron studies, B12, folate Monitor ?? History of breast cancer ?? ACP Full code Surrogate decision maker is Ailyn wright ROSA FABIAN MD [employer] * VIANEY Michel - 05/08/2019 1:54 PM CST [employer] met with pt at bedside to discuss d/c planning. Pt stated that she has been living at home withher daughter and grandchildren but her daughter is not around much or helpful. Pt was d/c from [facility] in March and stated that she was not set up with HH after d/c to help with wound care or PT/OT. Pt stated that she had been using a walker but recently has had to use a wheelchair to get around the house. Pt explained that she does not want to return to a SNF and would like to go home at d/c. Pt uses [facility] pharmacy. If pt d/c home she will need HH and is agreeable. Will await PT recs and revisit d/c planning with patient. Possible d/c in a few days per rounds. 05/08/19 1352 Referral Data Referral Reason Discharge Planning Source of Information Patient Patient Information Primary Caregiver Self Support System Immediate family;Extended family Baseline ADL's Functional Status Independent Living Arrangements Children;Family members Type of Residence Private residence Ambulation Assistance Yes Active DME Wheelchair;Walker Bathing/Grooming Assistance No Dressing Assistance No Behavior Oriented Communication Talks;Understands speaking;Understands Tanzanian Anticipated Discharge Needs Change in Living Arrangements Not Known at this time In-Home Care or Equipment Not Known at this time Vocational and/or Role Loss No Inability to Complete ADL's Not Known at this time Anticipated DC Plan Living Arrangements Children;Family members Support Systems Children;Family members Type of Residence Private residence Assistance Needed Yes Discharge assistance Home Health Patient expects to be discharged to: Home [employer] * Serg Goodman DPT - 05/08/2019 11:49 AM CST 05/08/19 1100 Therapy Visit Subjective Attempted to se pt. She states she is not feeling well and does not want to participate.Will attempt later today. [employer] * Onelia Khan PharmD - 05/08/2019 10:56 AM CST Vancomycin Day 2: DOSE: 1500 mg every 24 hours TROUGH GOAL: 10-15 ACTUAL HT/WT: HT: 5'2 WT: 93.1 kg Date: WBC: SCR: CRCL: TMAX: 05/07 6.8 1.09 53.5ml/min 97.8 05/08 5.1 1.09* 55.4ml/min 98.1 *S. Cr is from 05/07 as of now that is the most current lab Trough level is due at 1830 on 05/10 Assessment: Patient is on vancomycin/rocephin for cellulitis. This 64 YOF has a PMH significant forcancer, DM, and HTN presents to ED for evaluation of an ulcer to her left leg. The patient was previously going to the wound clinic, but has not been since February. Plan: Will administer vancomycin at 1500mg/24hrs per protocol. A trough will be checked before the 1900 dose 05/10, goal is 10-15. Pharmacy will continue to follow and make adjustments as necessary. Thank you for the consult! [employer] * India Fournier RN - 05/08/2019 2:17 AM CST Problem: Fluid Volume - Risk of, Imbalanced Goal: Absence of hypovolemia Outcome: Progressing Problem: Fluid Volume - Risk of, Imbalanced Goal: Lactate, serum, within specified parameters Outcome: Progressing Problem: Fluid Volume - Risk of, Imbalanced Goal: Procalciton within specified parameters Outcome: Progressing Problem: Injury - Risk of, Abnormal Serum Glucose Level Goal: Glucose level within specified parameters Outcome: Progressing Problem: Infection - Risk of, Septic Shock Goal: Absence of infection signs and symptoms Outcome: Progressing Problem: Tissue Perfusion - Risk of, Altered Goal: Central venous pressure within specified parameters Outcome: Progressing Problem: Venous Thromboembolism - Risk of Goal: Absence of venous thromboembolism Outcome: Progressing [employer] * Rene Vogel PharmD, [facility] - 05/07/2019 6:50 PM CST VANCOMYCIN INITIAL WORK UP NOTE ACTUAL HT/WT: Ht Readings from Last 1 Encounters: 05/07/19 5' 2 (1.575 m) . Wt Readings from Last 1 Encounters: 02/21/19 87.5 kg (193 lb) Date: WBC: SCR: CRCL: TMAX: 05/07 6.8 1.09 53.5ml/min 97.8 Assessment: Starting vancomycin/rocephin for cellulitis. This 64 YOF has a PMH significant for cancer, DM, and HTN presents to ED for evaluation of an ulcer to her left leg. The patient was previously going to the wound clinic, but has not been since February. Plan: Will administer vancomycin at 1500mg/24hrs per protocol. A trough will be checked before the 1900 dose 05/10, goal is 10-15. [employer] documented in this encounter H&P Notes * Yolanda Wing MD - 05/09/2019 2:50 PM CST HISTORY AND PHYSICAL INTERVAL NOTE: I have reviewed Iris Gil History & Physical which was performed within the past 30 days. After examining Iris Gil, no change has occurred in the patient's condition since the H&P was completed. Informed Consent Discussion: Potential benefits, risks, and side effects of the patient's procedure/surgery; the likelihood of the patient achieving his or her goals; and any potential problems that might occur during recuperation were discussed with the patient/family/personal insurance claims representative. Reasonable alternatives to the patient's proposed procedure/surgery including benefits, risks, and side effects related to the alternatives and the risks related to not receiving the proposed care were also discussed with the patient/family/personal insurance claims representative. Questions were answered and the patient /family/personal insurance claims representative verbalized understanding and desires to proceed. [employer] * Loraine Penaloza MD - 05/07/2019 5:28 PM CST Hospitalist History and Physical Patient: Iris Gil Date: 05/07/2019 female, 64-year-old Admit Date: 05/07/2019 Attending: Don Branham MD CHIEF COMPLAINT: Leg ulcer HISTORY OF PRESENT ILLNESS: Iris Gil is a 64-year-old female with a past medical history significant for breast cancer, diabetes mellitus, HTN who presents for evaluation of an ulcer to her left leg. Patient was previously going to the wound clinic but has not been since February 2019 due to insurance issues. She has not taken any of her medications since mid March after being discharged from [facility]. She was in rehab due to leg weakness. Patient states her wound has not been drianing but does have a foul odor. She says her granddaughter would not get her creams to put on her wounds and her pain was getting worse so she came to the hospital. Patient mentions that her urine has looked like glue since she was left the [place]. She has occasional chills. No fevers, sweats. Patient is full code. Her POA is her daughter Ailyn Turner. REVIEW OF SYSTEMS: A 14 point review of systems was taken and pertinent positives and negatives as per HPI. All othersnegative. ALLERGY Allergies Allergen Reactions ??? Codeine Nausea and Vomiting MEDICATIONS (Not in a hospital admission) No current facility-administered medications on file prior to encounter. Current Outpatient Medications on File Prior to Encounter Medication Sig Dispense Refill ??? acetaminophen 500 MG tablet Take 1,000 mg by mouth daily as needed for Pain. Indications: Pain ??? atorvastatin 80 MG tablet Take 80 mg by mouth daily. Indications: High Amount of Cholesterol inthe Blood ??? levothyroxine 100 MCG tablet Take 100 mcg by mouth daily. ??? metFORMIN 850 MG tablet Take 850 mg by mouth 2 (two) times daily with meals. ??? valsartan 160 MG tablet Take 160 mg by mouth daily. Indications: High Blood Pressure Disorder, heart failure PAST MEDICAL HISTORY Past Medical History: Diagnosis Date ??? Cancer (CMS/HCC) breast ??? Diabetes mellitus (CMS/HCC) ??? Disease of thyroid gland ??? Hypertension Past Surgical History: Procedure Laterality Date ??? BREAST SURGERY Bilateral ??? KNEE SURGERY Right ??? REMOVAL OF OVARY(S) Left ??? UPPER ARM/ELBOW SURGERY UNLISTED Right SOCIAL HISTORY Social History Socioeconomic History ??? Marital status: [...] file Gets together: Not on file Attends hinduism service: Not on file Active member of [...] Social History Narrative ??? Not on file FAMILY HISTORY No family history on file. Diabetes mellitus - Father Heart Problems - Father Hypertension - Father Diabetes mellitus - Mother PHYSICAL EXAMINATION: Vital 24 Hour Range Most Recent Value Temperature Temp Min: 97.6 ??F (36.4 ??C) Max: 97.8 ??F (36.6 ??C) 97.6 ??F (36.4 ??C) Pulse Pulse Min: 84 Max: 95 84 Respiratory Resp Min: 14 Max: 29 14 Blood Pressure BP Min: 140/86 Max: 178/73 (!) 172/60 Pulse Oximetry SpO2 Min: 97 % Max: 100 % 100 % O2 No data recorded Vital Most Recent Value First Value Weight Height 5' 2 (157.5 cm) Height: 5' 2 (157.5 cm) BMI N/A Intake/Output last 3 shifts: No intake/output data recorded. Physical Exam: -GENERAL: No acute distress, Well nourished, obese -HEAD: Normocephalic, Atraumatic -EYES: PERRL, Extraocular movements intact -ENT: Neck supple, Mucous membranes moist -LUNG: Clear to auscultation bilaterally, No wheezes, No crackles, No ronchi -CVS: Regular rate and rhythm, S1 and S2 normal, No murmurs -ABDOMEN: Soft, large ventral hernia, non tender -EXT: ~2 ulcer on distal posterior left LE, clean base, surrounding erythema, mild swelling -NEURO: Awake, alert, oriented, No obvious gross neuro deficits -SKIN: As above; stage 3 pressure ulcers on bilateral upper highs posteriorly with some areas of necrosis LABS Recent Labs Lab 05/07/19 1232 NA 135* K 3.0* CL 98* CO2 29.7 AGAP 7.3 BUN 13 CR 1.09* BUNCREATININ 11.9 GFRNON 54* GFR 62* GLU 353* CA 8.5 MAGNESIUM 1.8 Recent Labs Lab 05/07/19 1232 WBC 6.8 RBC 3.38* HGB 9.9* HCT 30.4* MCV 89.9 MCH 29.3 MCHC 32.6 PLT 314 RDW 13.6 MPV 9.8 Recent Labs Lab 05/07/19 1232 AST 32 ALT 28 No results for input(s): INR, PTT in the last 168 hours. Invalid input(s): ABG arterial blood gases No results for input(s): TROP, TROPIWB, CPK in the last 168 hours. Invalid input(s): CK-MB No results for input(s): PH, PCO2, PO2, [id number], BICARBWB, BASEDEFICIT, BASEEXCESS in the dhat723 hours. IMAGING & OTHER STUDIES No results found. No results found for this visit on 05/07/19. ASSESSMENT & PLAN Sepsis Present with tachycardia, tachypnea, lactic acidosis. Sepsis identified at 1710 when I examined thepatient. Secondary to UTI and cellulitis Start IV Vanc, ceftriaxone. Monitor creatinine, Vanc trough Follow-up blood and urine cultures Wound cultures MRSA screen Cellulitis, UTI Antibiotics as above Type 2 diabetes mellitus complicated by hyperlipidemia Noncompliant with medications since discharge from assisted Sliding scale insulin Check A1c Essential hypertension Noncompliant with medications as above Resume valsartan Monitor and adjust as needed Hyperlipidemia Resume statin Hypothyroidism Resume levothyroxine No utility of checking TFTs at this time as patient has not taken medication since last month. Check TFTs in 4 to 6 weeks Hypokalemia Replete Monitor Stage 3-4 ulcer of distal left lower extremity Concern for ischemic ulcer Present for several months Previously seen by Dr. Guy, vascular surgery. Will consult. Recommendations appreciated. Obtain ABIs Wound care Stage III pressure ulcers to bilateral upper thighs posteriorly Present on admission Wound care Normocytic anemia Check iron studies, B12, folate Monitor History of breast cancer ACP Full code Surrogate decision maker is Ailyn wright Patient discussed with the ED physician. LORAINE PENALOZA MD [employer] documented in this encounter Consult Notes * Bud Weir MD - 05/12/2019 9:23 PM CSTAssociated Order(s): IP CONSULT TO INFECTIOUS DISEASES Infectious Diseases Consult Note Patient: Iris Gil Date: 05/12/2019 female, 64-year-old Admit Date: 05/07/2019 Attending: Beth Cm MD REASON FOR CONSULT: Bilateral lower extremity swelling and ulceration HISTORY OF PRESENT ILLNESS: Iris Gil is a 64-year-old female with medical history as mentioned below significant for bilateral pneumonia extremity swelling and ulceration which is chronic left lower extremity. And noninvasive testing has been done and shows arterial insufficiency of both lower extremities. Wounds appear superficial MRI with no osteomyelitis, abscess. Past Medical History: Past Medical History: Diagnosis Date ??? Cancer (CMS/HCC) breast ??? Diabetes mellitus (CMS/HCC) ??? Disease of thyroid gland ??? Hypertension Past Surgical History: Past Surgical History: Procedure Laterality Date ??? BREAST SURGERY Bilateral ??? KNEE SURGERY Right ??? REMOVAL OF OVARY(S) Left ??? UPPER ARM/ELBOW SURGERY UNLISTED Right Prior to Admission Medications: Medications Prior to Admission Medication Sig Dispense Refill ??? acetaminophen 500 MG tablet Take 1,000 mg by mouth daily as needed for Pain. Indications: Pain ??? atorvastatin 80 MG tablet Take 80 mg by mouth daily. Indications: High Amount of Cholesterol inthe Blood ??? levothyroxine 100 MCG tablet Take 100 mcg by mouth daily. ??? metFORMIN 850 MG tablet Take 850 mg by mouth 2 (two) times daily with meals. ??? valsartan 160 MG tablet Take 160 mg by mouth daily. Indications: High Blood Pressure Disorder, heart failure Allergies: Allergies Allergen Reactions ??? Codeine Nausea [...] file Gets together: Not on file Attends hinduism service: Not on file Active member of [...] Narrative ??? Not on file Family History: No family history on file. REVIEW OF SYSTEMS: Denies SOB, abdominal pain, No nausea, No chest pain.All other systems were assessed and were negative for any symptoms. PHYSICAL EXAMINATION: Filed Vitals: 05/11/19 2100 05/12/19 0500 05/12/19 1300 05/12/19 195 BP: (!) 152/61 147/82 (!) (P) 153/57 (!) (P) 166/61 Pulse: 86 74 (P) 86 (P) 91 Resp: 18 18 (P) 18 Temp: 98.4 ??F (36.9 ??C) 97.4 ??F (36.3 ??C) (P) 97.8 ??F (36.6 ??C) (P) 98.2 ??F (36.8 ??C) TempSrc: Oral Oral (P) Oral (P) Oral SpO2: 100% 100% (P) 100% (P) 98% Weight: 92 kg (202 lb 13.2 oz) Height: General physical exam not in any apparent distress. HEENT: ROSETTE, EOMI CVS: S1 S2 audible, STRUCTURAL TECHNICIAN RESP: CTA B/L ABD:S,NT,ND BS+ve EXT/SKIN: No Rash Ulceration of the left lower extremity posterior lateral aspect superficial no drainage seen. LABS: Recent Labs Lab 05/10/19 0538 05/11/19 0636 05/12/19 0629 WBC 8.0 7.8 6.3 RBC 2.64* 2.64* 2.74* HGB 7.8* 7.7* 8.0* HCT 23.9* 24.1* 25.0* MCV 90.5 91.3 91.2 MCH 29.5 29.2 29.2 MCHC 32.6 32.0 32.0 PLT 267 265 245 RDW 14.0 14.4 14.4 MPV 9.9 9.9 9.6 PERNEU 75.0 71.1 71.9 PERLYM 14.3 15.9 16.1 PERMON 6.7 7.9 7.5 LYMC 1.15 1.24 1.01 MONOC 0.54 0.62 0.47 EOSC 0.13 0.18 0.17 BASOC 0.04 0.05 0.03 DTYPE AUTOMATED DIFFERENTIAL AUTOMATED DIFFERENTIAL AUTOMATED DIFFERENTIAL Recent Labs Lab 05/07/19 1232 05/09/19 0738 05/10/19 0538 05/12/19 0629 NA 135* < > 137 137 139 K 3.0* < > 3.3* 3.7 3.6 CL 98* < > 103 103 104 CO2 29.7 < > 30.0 27.9 30.6 AGAP 7.3 < > 4.0* 6.1 4.4* BUN 13 < > 16 20* 19* CR 1.09* < > 0.80 0.75 0.63 BUNCREATININ 11.9 < > 20.1 26.6* 30.0* GFRNON 54* < > 78* 84* >90 GFR 62* < > >90 >90 >90 GLU 353* < > 261* 174* 97 CA 8.5 < > 7.9* 8.1* 8.5 TP 7.8 -- -- -- -- ALB 3.1* -- -- -- -- TBIL 0.8 -- -- -- -- ALKP 58 -- -- -- -- AST 32 -- -- -- -- ALT 28 -- -- -- -- < > = values in this interval not displayed. Invalid input(s): LACTATE, PROCALCITONIN MICROBIOLOGY: Blood: Results for orders placed or performed during the hospital encounter of 05/07/19 (from the past 168hour(s)) CULTURE, BACTERIA, BLOOD Collection Time: 05/07/19 12:31 PM Result Value Ref Range Spec. Description BLOOD Special Requests: NO SPECIAL REQUEST Culture Result: NO GROWTH 5 DAYS CULTURE, BACTERIA, BLOOD Collection Time: 05/07/19 12:17 PM Result Value Ref Range Spec. Description BLOOD Special Requests: NO SPECIAL REQUEST Culture Result: NO GROWTH 5 DAYS Urine: Results for orders placed or performed during the hospital encounter of 05/07/19 (from the past 168hour(s)) CULTURE URINE Collection Time: 05/07/19 4:40 PM Result Value Ref Range Spec. Description URINE STRAIGHT CATH Special Requests: NO SPECIAL REQUEST Culture Result: NO GROWTH 2 DAYS IMAGING: MRI December 2018 1. No osteomyelitis demonstrated. 2. Ulcerated wound of the left lower leg posterolateral aspect without abscess or drainable fluid collection. 3. Marked diffuse subcutaneous edema. 4. Diffuse muscle atrophy and mild patchy edema most likely representing chronic peripheral neuropathy. ASSESSMENT & PLAN: Lateral lower extremity swelling left lower extremity ulceration with cellulitis Superficial wound no deep wounds does not require drainage at this time vascular surgery has seen the patient, noninvasive testing has been done and shows arterial insufficiency of both lower extremities. MRI that was done in December with no evidence of osteomyelitis Currently she is on ceftazidime and vancomycin was given initially now on doxycycline. Wound culture with pseudomonas aeruginosa Pseudomonas stutzeri and Morganella species Please obtain EKG we will start the patient on Levaquin. Will stop ceftazidime and doxycycline. Patient is colonized with 2 different species of Pseudomonas and Morganella short therapy intended with Levaquin elevation of lower extremities advised. WBC count is 6.3 afebrile Type 2 diabetes mellitus Hypothyroidism Hyperlipidemia Essential hypertension BUD WEIR MD 05/12/2019 [employer] * Khalif Guy MD - 05/10/2019 10:09 AM CST Images from the original note were not included. Consult History Iris Gil is a 64-year-old female who presents with lower extremity ulceration This is a 64-year-old female with a history of bilateral lower extremity swelling and ulceration. The patient has had chronic ulceration present on the left lower extremity. She subsequently developed ulceration of the right lower extremity related to edema. Noninvasive vascular testing was consistent with moderate arterial insufficiency of both lower extremities. The patient had evidence of small vessel disease in the feet. She currently denies pain in the extremities. She denies fevers and chills. Past Medical History: Diagnosis Date ??? Cancer [...] use: No No family history on file. ??? atorvastatin 80 mg Oral Daily ??? cefTRIAXone 2 g Intravenous Q24H ??? collagenase Topical Daily ??? doxycycline 100 mg Intravenous Q12H ??? enoxaparin 40 mg Subcutaneous Q24H ??? insulin lispro 0-16 Units Subcutaneous TID AC And ??? insulin lispro 0-8 Units Subcutaneous Nightly at bedtime ??? levothyroxine 100 mcg Oral Daily ??? losartan 100 mg Oral Daily ??? sodium chloride 100 mL/hr at 05/10/19 0234 acetaminophen, hydrALAZINE, dhnlhureq-kwmldqzj-lujkvqznhfx, ondansetron, polyethylene glycol, traMADol Prior to Admission medications Medication Sig Start Date End Date Taking? Authorizing Provider acetaminophen 500 MG tablet Take 1,000 mg by mouth daily as needed for Pain. Indications: Pain 12/11/18 Yes Doc Abstract atorvastatin 80 MG tablet Take 80 mg by mouth daily. Indications: High Amount of Cholesterol in theBlood 11/29/18 Yes Doc Abstract levothyroxine 100 MCG tablet Take 100 mcg by mouth daily. 03/22/19 Yes Doc Abstract metFORMIN 850 MG tablet Take 850 mg by mouth 2 (two) times daily with meals. Yes Doc Abstract valsartan 160 MG tablet Take 160 mg by mouth daily. Indications: High Blood Pressure Disorder, heart failure 11/29/18 Yes Doc Abstract Allergies Allergen Reactions ??? Codeine Nausea and Vomiting Review of Systems Constitutional: Negative. HENT: Negative. Respiratory: Negative. Cardiovascular: Positive for leg swelling. Endocrine: Negative. Musculoskeletal: Positive for myalgias. Skin: Positive for color change and wound. Allergic/Immunologic: Negative. Neurological: Negative. Physical Exam Filed Vitals: 05/09/19 0300 05/09/19 1453 05/09/19 1944 05/10/19 0554 BP: (!) 153/69 133/57 148/70 Pulse: 76 95 90 Resp: Temp: 97.8 ??F (36.6 ??C) 98.2 ??F (36.8 ??C) 98.4 ??F (36.9 ??C) TempSrc: Oral Oral Oral SpO2: 93% 100% 99% 99% Weight: 92.4 kg (203 lb 11.3 oz) Height: Physical Exam: Physical Exam Constitutional: She appears well-nourished. No distress. Eyes: No scleral icterus. Neck: Neck supple. No JVD present. Cardiovascular: Normal rate. Pulmonary/Chest: Effort normal. Abdominal: Soft. Musculoskeletal: She exhibits edema. She exhibits no tenderness. Neurological: She is alert. No cranial nerve deficit. Skin: Skin is dry. She is not diaphoretic. Psychiatric: She has a normal mood and affect. Recent Labs Lab 05/08/19 0616 05/09/19 0738 05/10/19 0538 WBC 5.1 7.0 8.0 RBC 3.04* 3.06* 2.64* HGB 8.9* 8.9* 7.8* HCT 27.4* 27.4* 23.9* MCV 90.1 89.5 90.5 MCH 29.3 29.1 29.5 MCHC 32.5 32.5 32.6 PLT 283 271 267 RDW 13.6 13.9 14.0 MPV 9.9 9.7 9.9 PERNEU 71.3 79.7 75.0 PERLYM 16.2 10.4 14.3 PERMON 7.9 6.6 6.7 LYMC 0.82* 0.72* 1.15 MONOC 0.40 0.46 0.54 EOSC 0.15 0.10 0.13 BASOC 0.03 0.04 0.04 DTYPE AUTOMATED DIFFERENTIAL AUTOMATED DIFFERENTIAL AUTOMATED DIFFERENTIAL Recent Labs Lab 05/07/19 1232 05/08/19 0616 05/09/19 0738 05/10/19 0538 NA 135* 140 137 137 K 3.0* 3.0* 3.3* 3.7 CL 98* 107 103 103 CO2 29.7 30.2 30.0 27.9 AGAP 7.3 2.8* 4.0* 6.1 BUN 13 13 16 20* CR 1.09* 0.84 0.80 0.75 BUNCREATININ 11.9 15.6 20.1 26.6* GFRNON 54* 73* 78* 84* GFR 62* 85* >90 >90 GLU 353* 135* 261* 174* CA 8.5 7.6* 7.9* 8.1* TP 7.8 -- -- -- ALB 3.1* -- -- -- TBIL 0.8 -- -- -- ALKP 58 -- -- -- AST 32 -- -- -- ALT 28 -- -- -- No results for input(s): PTT, INR in the last 168 hours. Invalid input(s): PT Results for orders placed or performed during the hospital encounter of 05/07/19 (from the past 8736 hour(s)) CULTURE URINE Collection Time: 05/07/19 4:40 PM Result Value Ref Range Spec. Description URINE STRAIGHT CATH Special Requests: NO SPECIAL REQUEST Culture Result: NO GROWTH 2 DAYS Imaging: Usv Art Rest W Rebecca Low Ext Result Date: 05/08/2019 ARTERIAL DOPPLER - REBECCA BILATERAL LOWER EXTREMITY VASCULAR LAB Pat.Name: IRIS GIL Pat.ID: [id number] .Date: 05/08/2019 Refer.MD: Rikc Glez Exam Time: 10:48:00 AM Study Type:FRANCISCO VS Arterial Doppler Legs BRENDON Age: 11 1955,64Y Sex: FEMALE Sonogrphr: THAI Benjamin Pat. Stat.:Inpatient Room: [facility] History / Clinical: LLE non healing wound; PMH- breast CA, DM, HTN, Chronic LE wounds; BMI 38, cellulitis, Prior Rt REBECCA 0.72, toe index 0.49; Lt REBECCA 0.76, toe index 0.52 Procedures: Doppler waveforms, Digit PPG, Systolic Pressures w/REBECCA Race: B ++++++++++++++++++++++++++++++++++++ SUMMARY: ++++++++++++++++++++++++++++++++++++ Rom REBECCA Criteria: >1.30 = falsely elevated, calcified vessels; 1.00-1.29 = no signif ischemia at rest ; .80-.99 = mild PAD, asymptomatic; .50-.79 = moderate PAD, claudication; <.50 = severe PAD, rest pain; <.30 = critical PAD, necrosis, poor healing (Digits: DBI >.60 Normal; <.60 Abnormal) (Positive Stress eval: REBECCA decrease of >.20 or >20% pressure drop) Right leg: Common Femoral waveform is triphasic, high amplitude; Popliteal mono-biphasic, medium amplitude; Posterior Tibial biphasic, high amplitude with REBECCA 0.675 ; DP/Anterior Tibial biphasic, low amplitude with REBECCA 0.69 . Digit flow by PPG is low amplitude with DBI 0.225. Left leg: Common Femoral waveform is triphasic, high amplitude; Popliteal biphasic, high amplitude; Posterior Tibial biphasic, medium amplitude with REBECCA 0 ; DP/Anterior Tibial biphasic, medium amplitude with REBECCA 0.615 . Digit flow by PPG is medium amplitude with DBI 0.23 . Patient refused BP in left arm due to PCP recommendation Compared to previous exam done 01/08/2019 , there is mild disease progression, on the left. CONCLUSION: ++++++++++++++++++++++++++++++++++++ MEASUREMENTS: ++++++++++++ ++++++++++++++++++++++++ DOPPLER Left Dist Pop A Dist Pop A PSV 81.4 cm/s Left Dist EMERGENCY NURSE Dist EMERGENCY NURSE PSV 76.3 cm/s Left Dist MAKAYLA Dist MAKAYLA PSV 53.1 cm/s Right SLURRY PLANT OPERATOR SLURRY PLANT OPERATOR PSV 108 cm/s Right Dist Pop A Dist Pop A PSV 57.4 cm/s Right Dist EMERGENCY NURSE Dist EMERGENCY NURSE PSV 85.7 cm/s Right Dist MAKAYLA Dist MAKAYLA PSV 33.4 cm/s PRESSURES Right Brachial Brach P 200 mmHg Right Ankle DP AnkleDP P 138 mmHg Right Ankle PT AnklePT P 135 mmHg Right Great Toe GreatToe P 45 mmHg Right REBECCA PT REBECCA PT 0.675 Right REBECCA DP REBECCA DP 0.69 Right TBITBI 0.225 Left Ankle DP AnkleDP P 123 mmHg Left Ankle PT AnklePT P 0 mmHg Left Great Toe GreatToe P46 mmHg Left REBECCA PT REBECCA PT 0 Left REBECCA DP REBECCA DP 0.615 Left TBI TBI 0.23 Unsigned Spenser White M.D. Assessment Principal Problem: Sepsis (CMS/HCC) SNOMED CT(R): SEPSIS Plan The patient has moderate arterial insufficiency of the lower extremities. The wounds do not appear to be ischemic. Continue antibiotics. No plan for debridement at this time. Will follow. Thank you for consultation. KHALIF GUY MD Consulted by Ekaterina Barlow MD [employer] * Sharon Nixon RN - 05/08/2019 3:42 PM CSTAssociated Order(s): WOUND OSTOMY EVAL AND TREAT Wound nurse consulted for open sites to bilateral upper legs and left posterior lower leg. Upon assessment, a venous ulceration is noted to the left posterior lower leg. At this time, recommend aquacel ag to wound bed, cover with foam. Change every 3 days and as needed for loosened/soiled bandage. To the posterior upper legs, stage 3 pressure ulcerations are noted with surrouding deep tissue injury. At this time, recommend left pressure site dressing with bordered foam as minimal slough is noted. To the right posterior upper leg, recommend santyl to wound bed, cover with dry foam. Change daily. Additionally, assigned nurse to implement and maintain pressure reduction measures. 05/08/2019 Sharon Nixon RN [employer] * Sonali Sheldon RD - 05/08/2019 11:37 AM CST A: Pt seen this date for MST of 2; unsure of weight loss. Dx of sepsis. PMH includes DM, breast CA.75g CHO, cardiac, low cholesterol, 2gm Na diet ordered. Labs reviewed; HgbA1c@11.4, albumin @3.1. Medications reviewed. Noted to have stage III/IV non-healing ulcer to LLE. She is noted to have gone to wound clinic until February. She was discharged from rehab center in mid March and has not beentaken any medications since, DM medications included hence elevated HgbA1c. Review of weights showsno change to address. Joe will be sent with B&D to promote healing of surgical incision. Joe provides 14g protein in addition to PO intake. BMI of 336.49; class II obesity/severe obesity. Estimated nutritional needs are approximately 1675kcal, 94g protein (1.4g/ABW), 1675cc fluid. D: Increased protein needs related to non healing ulcer to LLE as evidenced by need for Joe supplementation bid. I: Goal is for intake of meals and Joe to be >75%. Joe will be sent with B&D. Monitor intake, weight, labs. M/E: She is at high nutritional risk with f/u 3-2-20. Goal is for intake of meals and Joe to be >75%. Monitor intake, weight, labs. [employer] documented in this encounter Nursing Notes * Lucía Ohara - 05/09/2019 3:27 PM CST Patient returned from IR with midline in place [employer] * Amanda Kyle RN - 05/09/2019 3:04 PM CST #4 F MIDLINE PLACED RIGHT UPPER ARM -BRACHIAL [employer] * Lucía Ohara - 05/09/2019 2:36 PM CST TRANSPORT HERE AT THIS TIME TO TAKE THE PATIENT TO IR FOR THE MIDLINE [employer] * India Fournier RN - 05/09/2019 2:21 AM CST 2 peripheral stick attempts were made to replace patient's IV access. Contacted Hospitalist and a midline was ordered. [employer] * Carissa Patel RN - 05/08/2019 6:03 PM CST This morning patient was on pure wick. She was unable to void. Placed her on bedpan, she was still unable to void. Initial bladder scan showed > 500. After 2 BM's and moving around in bed she had a large incontinent urine episode. Post void residual showed 158. Pt. Has not voided since. I have asked and encouraged her to do so. She stated she would try the pure wick again. The purewick is placed and patient is stating she will try. Her bladder scan shows 400. Will continue to monitor and assess. Will pass on to night RN to do the same. [employer] documented in this encounter OR Notes * Brief Op Note - Yolanda Wing MD - 05/09/2019 4:02 PM CST 1. Technically successful, right mid arm brachial 4 Cameroonian 20 cm midline catheter placement. 2. Catheter okay for immediate use. [employer] documented in this encounter ED Notes * Lesa George RN - 05/07/2019 8:24 PM CST Pt asleep on stretcher at this time. Call light within reach. [employer] * Lesa George RN - 05/07/2019 7:34 PM CST Called rene in pharm about vanc dose. Pharm to readjust 1500mg dose to start tomorrow at 1250mg dose currently infusing. [employer] * Lesa George RN - 05/07/2019 7:22 PM CST Pt given warm blanket, resting on stretcher at this time. Call light within reach. [employer] * TONY Cool - 05/07/2019 12:30 PM CST Pt unable to urinate in RME. 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 [place], [place] EMERGENCY DEPARTMENT ENCOUNTER Chief Complaint Chief Complaint Patient presents with ??? Decubitus Ulcer ??? Hyperglycemia History of Present Illness Provider at Bedside Date/Time Event User Comments 05/07/19 1202 Provider at Bedside Assessing Patient JULIAN JAIN Nathan Gil is a 64-year-old female w/ hx of cancer, DM, and HTN presents to ED for evaluation of an ulcer to her left leg. Pt was previously going to the wound clinic, but has not been since February due to insurance issues. Pt also has elevated blood sugar. She has not taken her DM medications since mid March after being discharged from [place] [facility]. She was in rehab due to leg weakness. Denies fever, chills, shortness of breath, chest pain, or change in appetite. She usesa pharmacy in [place]. Pt is allergic to codeine. Family hx of CAD and DM. Denies smoking or drinking alcohol. Pt is and lives with her daughter. Medical History ALLERGIES: Allergies Allergen Reactions ??? Codeine Nausea and Vomiting MEDICATIONS: Prior to Admission medications Medication Sig Start Date End Date Taking? Authorizing Provider metFORMIN 850 MG tablet Take 850 mg by mouth 2 (two) times daily with meals. Yes Doc Abstract omeprazole 20 MG capsule Take 20 mg by mouth daily. Yes Doc Abstract acetaminophen 500 MG tablet Take 1,000 mg by mouth daily as needed for Pain. Indications: Pain 12/11/18 Doc Abstract atorvastatin 80 MG tablet Take 80 mg by mouth daily. Indications: High Amount of Cholesterol in theBlood 11/29/18 Doc Abstract levothyroxine 100 MCG tablet Take 100 mcg by mouth daily. 03/22/19 Doc Abstract valsartan 160 MG tablet Take 160 mg by mouth daily. Indications: High Blood Pressure Disorder, heart failure 11/29/18 Doc Abstract PAST MEDICAL HISTORY: Past Medical History: Diagnosis Date ??? Cancer (CMS/HCC) breast ??? Diabetes mellitus (CMS/HCC) ??? Disease of thyroid gland ??? Hypertension PAST SURGICAL HISTORY: Past Surgical History: Procedure Laterality Date ??? BREAST SURGERY Bilateral ??? KNEE SURGERY Right ??? REMOVAL OF OVARY(S) Left ??? UPPER ARM/ELBOW SURGERY UNLISTED Right FAMILY HISTORY: No family history on file. SOCIAL HISTORY: Social History Tobacco Use ??? Smoking status: Never Smoker ??? Smokeless tobacco: Never Used Substance Use Topics ??? Alcohol use: No Frequency: Never ??? Drug use: No Review of Systems Review of Systems Constitutional: Negative for chills and fever. HENT: Negative for congestion, rhinorrhea and sore throat. Eyes: Negative for photophobia. Respiratory: Negative for cough, shortness of breath and wheezing. Cardiovascular: Negative for chest pain, palpitations and leg swelling. Gastrointestinal: Negative for abdominal pain, constipation, diarrhea, nausea and vomiting. Endocrine: Negative for polydipsia and polyuria. Genitourinary: Negative for dysuria and frequency. Musculoskeletal: Negative for back pain, neck pain and neck stiffness. Skin: Negative for pallor and rash. Ulcer to left leg Allergic/Immunologic: Negative for immunocompromised state. Neurological: Negative for syncope, light-headedness, numbness and headaches. Hematological: Does not bruise/bleed easily. Psychiatric/Behavioral: Negative for suicidal ideas. See HPI for further details. All systems negative except as marked. Physical Exam Filed Vitals: 05/07/19 1145 BP: 140/86 Pulse: 95 Resp: 20 Temp: 97.8 ??F (36.6 ??C) TempSrc: Oral SpO2: 100% Height: 5' 2 (1.575 m) Physical Exam Constitutional: She is oriented to person, place, and time. She appears well- developed and well-nourished. No distress. HENT: Head: Normocephalic and atraumatic. Right Ear: External ear normal. Left Ear: External ear normal. Eyes: Pupils are equal, round, and reactive to light. Conjunctivae and EOM are normal. No scleral icterus. Neck: Normal range of motion. Neck supple. No JVD present. Cardiovascular: Normal rate, regular rhythm, normal heart sounds and intact distal pulses. Exam reveals no gallop and no friction rub. No murmur heard. Pulmonary/Chest: Effort normal and breath sounds normal. No stridor. No respiratory distress. She has no wheezes. She has no rales. She exhibits no tenderness. Abdominal: Soft. Bowel sounds are normal. She exhibits no distension and no mass. There is no tenderness. There is no rebound and no guarding. Musculoskeletal: Normal range of motion. She exhibits edema (bilateral LE). She exhibits no deformity. Achilles tendon intact Neurological: She is alert and oriented to person, place, and time. Skin: Skin is warm and dry. No rash noted. 3.5x3.5 cm ulcer to posterior left leg Psychiatric: She has a normal mood and affect. Her behavior is normal. Judgment and thought contentnormal. Nursing note and vitals reviewed. Diagnostic Studies / Procedures ELECTROCARDIOGRAMS: No results found for this visit on 05/07/19. LABORATORY STUDIES: Results for orders placed or performed during the hospital encounter of 05/07/19 CBC W/DIFF AUTOMATED Result Value Ref Range WBC 6.8 4.5 - 11.0 x10'3/uL RBC 3.38 (L) 4.20 - 5.40 x10'6/uL HGB 9.9 (L) 12.0 - 16.0 G/DL HCT 30.4 (L) 38.0 - 48.0 % MCV 89.9 81.0 - 99.0 FL MCH 29.3 27.0 - 31.0 PG MCHC 32.6 32.0 - 36.0 G/DL RDW 13.6 11.5 - 14.5 % PLT 314 130 - 400 x10'3/uL MPV 9.8 9.3 - 12.2 FL DIFFERENTIAL TYPE AUTOMATED DIFFERENTIAL NEUTROPHILS 74.0 % LYMPHOCYTES 14.8 % MONOCYTES 6.9 % EOSINOPHILS 1.9 % BASOPHILS 0.6 % IMMATURE GRANS 1.8 % ABS. NEUTROPHILS TOTAL 5.07 1.80 - 7.70 x10'3/uL ABS. LYMPHOCYTES 1.01 1.00 - 4.80 x10'3/uL ABS. MONOCYTES 0.47 0.24 - 0.86 x10'3/uL ABS. EOSINOPHILS 0.13 0.04 - 0.36 x10'3/uL ABS. BASOPHILS 0.04 0.01 - 0.08 x10'3/uL ABS. IMMATURE GRANULOCYTES 0.12 0.00 - 0.49 x10'3/uL COMPREHENSIVE METABOLIC PANEL Result Value Ref Range GLUCOSE 353 (H) 70 - 99 MG/DL BUN 13 7 - 18 MG/DL CREATININE 1.09 (H) 0.55 - 1.02 MG/DL SODIUM 135 (L) 136 - 145 MMOL/L POTASSIUM 3.0 (LL) 3.5 - 5.1 MMOL/L CHLORIDE 98 (L) 100 - 108 MMOL/L CO2 29.7 21 - 32 MMOL/L CALCIUM 8.5 8.5 - 10.1 MG/DL TOTAL BILIRUBIN 0.8 0.2 - 1.2 MG/DL TOTAL PROTEIN 7.8 6.4 - 8.2 G/DL ALBUMIN 3.1 (L) 3.4 - 5.0 G/DL AST 32 15 - 37 U/L ALT 28 14 - 55 U/L ALK PHOS 58 50 - 136 U/L ANION GAP 7.3 5 - 15 MMOL/L BUN CREATININE RATIO 11.9 6 - 26 A/G RATIO 0.7 (L) 1.0 - 2.0 RATIO eGFR Non-Afr. Amer. 54 (L) >90 ML/MIN/1.73 M2 eGFR Afr. Amer. 62 (L) >90 ML/MIN/1.73 M2 MAGNESIUM Result Value Ref Range MAGNESIUM 1.8 1.8 - 2.4 MG/DL LACTIC ACID Result Value Ref Range LACTIC ACID 3.9 (H) 0.4 - 2.0 MMOL/L POCT glucose Result Value Ref Range GLUCOSE POC 326 (H) 70 - 99 mg/dL POCT KETONES Result Value Ref Range KETONES: 0.1 0.0 - 0.5 mmol/L IMAGING STUDIES No orders to display ED Course / Medical Decision Making ED Course as of May 07 1518 Tue May 07, 2019 1442 Reviewing old records patient seen Dr. Guy February 22, 2020 felt if she had nonhealing ulcer of her left calf should have arterial studies 2 months later. Wound is still present. [CA] [address] [facility] [address] Toth. Discussed upper information. Agrees with 23-hour observationto medical floor. Consult social service [CA] ED Course User Index [CA] Don Branham MD Diagnosis management comments: 64-year-old female presents w/ hyperglycemia, ulcer Pulse Ox Interpretation: Saturation:??100 Oxygen Delivery: room air Interpretation: ??No acute hypoxia at this time. ?? Rhythm strip interpretation: Rhythm sinus rate 95. No arrhythmia noted. ?? Plan: - Labs - Meds Data reviewed: All current, pertinent and timely studies (laboratory, imaging, and procedures) wereordered and results reviewed by Don Branham MD unless otherwise noted. Triage notes and available nursing notes reviewed. Previous medical record reviewed when available. Repeat vital signs reviewed. PCP: RICK GLEZ MD Progress notes: Medications potassium chloride CR (K-TAB) tablet 40 mEq (has no administration in time range) sodium chloride 0.9% bolus infusion SOLN 1,000 mL (has no administration in time range) insulin regular (NOVOLIN R/HUMULIN R) injection 5 Units (has no administration in time range) Clinical Impression Weakness (Primary) Hyperglycemia Noncompliance Decubitus skin ulcer Current Discharge Medication List Disposition: Admit Follow-Up: No follow-up provider specified. I, Lucía Rose, acting as a scribe, am personally taking down the notes in the presence of Don Branham MD. Take no action on this note until reviewed and authenticated by the physician. Don Branham MD 05/07/19 1519 [facility] * Mee Thacker RN - 05/07/2019 11:41 AM CST Reports hx DM. Stopped taking medications mid March because I don't think I have DM . Ulcer to posterior lower leg. Reports I used to go to wound clinic, but no one can take me now . Reports has not seen wound clinic since end of February. Pt reports she [facility] end of [facility]. Now lives with her daughter. Poor historian. Unsure what medications she takes. States shehas not taken meds for a while because I don't know how to take it . BS in triage 326. Denies cp/sob. [facility] [employer] documented in this encounter Plan of Treatment Scheduled Referrals Name Type Priority Associated Diagnoses Orde r Schedule Abbreviated Ambulatory Referral to Home Health Referral Routine Ulcer of lower limb, left, limited to breakdown of skin ([facility]) Ordered: 05/10/2019 documented as of this encounter Procedures Procedure Name Priority Date/Time Associated Diagnosis Comments POCT GLUCOSE - CHONG DOCKED DEVICE Routine 05/17/2019 5:08 AM [facility] BASIC METABOLIC PANEL Routine 05/17/2019 4:38 AM [facility] CBC W/DIFF AUTOMATED Routine 05/17/2019 4:38 AM [facility] POCT GLUCOSE - CHONG DOCKED DEVICE Routine 05/16/2019 8:56 PM [facility] POCT GLUCOSE - CHONG DOCKED DEVICE Routine 05/16/2019 4:11 PM [facility] POCT GLUCOSE - CHONG DOCKED DEVICE Routine 05/16/2019 11:44 AM [facility] BASIC METABOLIC PANEL Routine 05/16/2019 6:04 AM [facility] CBC W/DIFF AUTOMATED Routine 05/16/2019 6:04 AM [facility] POCT GLUCOSE - CHONG DOCKED DEVICE Routine 05/16/2019 5:36 AM [facility] POCT GLUCOSE - CHONG DOCKED DEVICE Routine 05/15/2019 8:43 PM [facility] POCT GLUCOSE - CHONG DOCKED DEVICE Routine 05/15/2019 4:44 PM [facility] TRANSFUSE RED BLOOD CELLS Routine 05/15/2019 12:11 PM [facility] POCT GLUCOSE - CHONG DOCKED DEVICE Routine 05/15/2019 11:42 AM [facility] TYPE & SCREEN Routine 05/15/2019 9:34 AM [facility] POCT GLUCOSE - CHONG DOCKED DEVICE Routine 05/15/2019 6:33 AM [facility] BASIC METABOLIC PANEL Routine 05/15/2019 4:57 AM [facility] CBC W/DIFF AUTOMATED Routine 05/15/2019 4:57 AM [facility] POCT GLUCOSE - CHONG DOCKED DEVICE Routine 05/14/2019 9:25 PM [facility]IC[facility] POCT GLUCOSE - CHONG DOCKED DEVICE Routine 05/14/2019 4:29 PM [facility] HEMOGLOBIN AND HEMATOCRIT Routine 05/14/2019 3:42 PM [facility] POCT GLUCOSE - CHONG DOCKED DEVICE Routine 05/14/2019 11:54 AM [facility] POCT GLUCOSE - CHONG DOCKED DEVICE Routine 05/14/2019 6:42 AM [facility] BASIC METABOLIC PANEL Routine 05/14/2019 4:35 AM [facility] CBC W/DIFF AUTOMATED Routine 05/14/2019 4:35 AM [facility] POCT GLUCOSE - CHONG DOCKED DEVICE Routine 05/13/2019 9:11 PM [facility] POCT GLUCOSE - CHONG DOCKED DEVICE Routine 05/13/2019 4:58 PM [facility] POCT GLUCOSE - CHONG DOCKED DEVICE Routine 05/13/2019 12:02 PM [facility] ECG 12-LEAD Routine 05/13/2019 11:54 AM [facility] POCT GLUCOSE - CHONG DOCKED DEVICE Routine 05/13/2019 5:20 AM [facility] POCT GLUCOSE - CHONG DOCKED DEVICE Routine 05/12/2019 8:24 PM [facility]IC[facility] POCT GLUCOSE - CHONG DOCKED DEVICE Routine 05/12/2019 4:41 PM [facility] POCT GLUCOSE - CHONG DOCKED DEVICE Routine 05/12/2019 11:56 AM [facility] BASIC METABOLIC PANEL Routine 05/12/2019 6:29 AM [facility] CBC W/DIFF AUTOMATED Routine 05/12/2019 6:29 AM [facility]IC[facility] POCT GLUCOSE - CHONG DOCKED DEVICE Routine 05/12/2019 6:28 AM [facility]IC[facility] POCT GLUCOSE - CHONG DOCKED DEVICE Routine 05/11/2019 8:34 PM [facility]IC[facility] POCT GLUCOSE - CHONG DOCKED DEVICE Routine 05/11/2019 5:18 PM [facility] POCT GLUCOSE - CHONG DOCKED DEVICE Routine 05/11/2019 11:59 AM [facility] CBC W/DIFF AUTOMATED Routine 05/11/2019 6:36 AM [facility] POCT GLUCOSE - CHONG DOCKED DEVICE Routine 05/11/2019 6:24 AM [facility] POCT GLUCOSE - CHONG DOCKED DEVICE Routine 05/10/2019 8:46 PM [facility] POCT GLUCOSE - CHONG DOCKED DEVICE Routine 05/10/2019 5:08 PM [facility] POCT GLUCOSE - CHONG DOCKED DEVICE Routine 05/10/2019 11:38 AM [facility] POCT GLUCOSE - CHONG DOCKED DEVICE Routine 05/10/2019 6:18 AM [facility] BASIC METABOLIC PANEL Routine 05/10/2019 5:38 AM [facility] CBC W/DIFF AUTOMATED Routine 05/10/2019 5:38 AM [facility] POCT GLUCOSE - CHONG DOCKED DEVICE Routine 05/09/2019 8:00 PM [facility] POCT GLUCOSE - CHONG DOCKED DEVICE Routine 05/09/2019 5:03 PM [facility] IR MIDLINE PLACEMENT GREATER 3YR Today 05/09/2019 3:16 PM [facility] POCT GLUCOSE - CHONG DOCKED DEVICE Routine 05/09/2019 11:22 AM [facility] BASIC METABOLIC PANEL Routine 05/09/2019 7:38 AM [facility] CBC W/DIFF AUTOMATED Routine 05/09/2019 7:38 AM [facility] POCT GLUCOSE - CHONG DOCKED DEVICE Routine 05/09/2019 4:53 AM [facility] POCT GLUCOSE - CHONG DOCKED DEVICE Routine 05/08/2019 8:55 PM [facility] POCT GLUCOSE - CHONG DOCKED DEVICE Routine 05/08/2019 4:08 PM [facility] [employer] POCT GLUCOSE - CHONG DOCKED DEVICE Routine 05/08/2019 11:40 AM [facility] USV ART REST W REBECCA LOW EXT Today 05/08/2019 11:02 AM [facility] POCT GLUCOSE - CHONG DOCKED DEVICE Routine 05/08/2019 6:20 AM [facility] HEMOGLOBIN, GLYCOSYLATED Routine 05/08/2019 6:16 AM [facility] IRON SAT PANEL (IRON,IBC,%SAT) Routine 05/08/2019 6:16 AM [facility] VITAMIN B-12 Routine 05/08/2019 6:16 AM [facility] BASIC METABOLIC PANEL Routine 05/08/2019 6:16 AM [facility] FOLIC ACID SERUM Routine 05/08/2019 6:16 AM [facility] CBC W/DIFF AUTOMATED Routine 05/08/2019 6:16 AM [facility] FERRITIN Routine 05/08/2019 6:16 AM [facility] HC BODY FLUID CULTURE Routine 05/08/2019 3:35 AM [facility] MRSA SCREENING STAT 05/08/2019 3:15 AM [facility] POCT GLUCOSE - CHONG DOCKED DEVICE Routine 05/07/2019 11:32 PM [facility] URINALYSIS WI REFLEX TO CULTURE STAT 05/07/2019 4:40 PM [facility] URINE BACTERIA CULTURE STAT 0 4:40 PM [facility] LACTIC ACID TIMED 05/07/2019 4:40 PM [facility] LACTIC ACID TIMED 05/07/2019 2:17 PM [facility] POCT KETONES Routine 05/07/2019 12:59 PM [facility] COMPREHENSIVE METABOLIC PANEL STAT 05/07/2019 12:32 PM [facility] LACTIC ACID TIMED 05/07/2019 12:32 PM [facility] CBC W/DIFF AUTOMATED STAT 05/07/2019 12:32 PM [facility] MAGNESIUM STAT 05/07/2019 12:32 PM [facility] CULTURE, BACTERIA, BLOOD STAT 05/07/2019 12:31 PM [facility] CULTURE, BACTERIA, BLOOD STAT 05/07/2019 12:17 PM [facility] POCT GLUCOSE - CHONG DOCKED DEVICE Routine 05/07/2019 11:50 AM [facility] documented in this encounter Results * (ABNORMAL) POCT glucose (05/17/2019 5:08 AM [facility]) GLUCOSE POC 279(H) 70 - 99 mg/dL 05/17/2019 5:20 AM [facility] ORDERS INTERFACE 05/17/2019 5:08 AM [facility] Loraine Penaloza MD POCT ORDERABLES - GILMA CE Final Result [facility] LAB ORDERS INTERFACE US * (ABNORMAL) CBC W/DIFF AUTOMATED (05/17/2019 4:38 AM [facility]) WBC 6.6 4.5 - 11.0 x10'3/uL 05/17/2019 5:43 AM [facility] RBC 2.77(L) 4.20 - 5.40 x10'6/uL 05/17/2019 5:43 AM [facility] HGB 8.1(L) 12.0 - 16.0 G/DL 05/17/2019 5:43 AM [facility] HCT 25.3(L) 38.0 - 48.0 % 05/17/2019 5:43 AM [facility] MCV 91.3 81.0 - 99.0 FL 05/17/2019 5:43 AM [facility] MCH 29.2 27.0 - 31.0 PG 05/17/2019 5:43 AM [facility] MCHC 32.0 32.0 - 36.0 G/DL 05/17/2019 5:43 AM [facility] RDW 14.8(H) 11.5 - 14.5 % 05/17/2019 5:43 AM [facility] PLT 212 130 - 400 x10'3/uL 05/17/2019 5:43 AM [facility] MPV 9.9 9.3 - 12.2 FL 05/17/2019 5:43 AM [facility] DIFFERENTIAL TYPE AUTOMATED DIFFERENTIAL 05/17/2019 5:43 AM [facility] NEUTROPHILS % 69.7 % 05/17/2019 5:43 AM [facility] LYMPHOCYTES % 17.8 % 05/17/2019 5:43 AM [facility] MONOCYTES % 9.8 % 05/17/2019 5:43 AM [facility] EOSINOPHILS 1.4 % 05/17/2019 5:43 AM [facility] BASOPHILS 0.5 % 05/17/2019 5:43 AM [facility] IMMATURE GRANS % 0.8 % 05/17/19 20 5:43 AM [facility] ABS. NEUTROPHILS TOTAL 4.63 1.80 - 7.70 x10'3/uL 05/17/2019 5:43 AM [facility] ABS. LYMPHOCYTES 1.18 1.00 - 4.80 x10'3/uL 05/17/2019 5:43 AM [facility] ABS. MONOCYTES 0.65 0.24 - 0.86 x10'3/uL 05/17/2019 5:43 AM [facility] ABS. EOSINOPHILS 0.09 0.04 - 0.36 x10'3/uL 05/17/2019 5:43 AM [facility] ABS. BASOPHILS 0.03 0.01 - 0.08 x10'3/uL 05/17/2019 5:43 AM [facility] ABS. IMMATURE GRANULOCYTES 0.05 0.00 - 0.49 x10'3/uL 05/17/2019 5:43 AM [facility] 05/17/2019 4:38 AM [facility] Fabiola Carter MD LABORATORY Final Result [facility] [address] [place] [address], [place] [phone] * (ABNORMAL) BASIC METABOLIC PANEL (05/17/2019 4:38 AM [employer]) [facility] GLUCOSE 187(H) 70 - 99 MG/DL 05/17/2019 6:02 AM [facility] BUN 32(H) 7 - 18 MG/DL 05/17/2019 6:02 AM [facility] CREATININE S/P/B 1.16(H) 0.55 - 1.02 MG/DL 05/17/2019 6:02 AM [facility] SODIUM S/P/B 136 136 - 145 MMOL/L 05/17/2019 6:02 AM [facility] POTASSIUM S/P/B 3.7 3.5 - 5.1 MMOL/L 05/17/2019 6:02 AM [facility] CHLORIDE S/P/B 96(L) 100 - 108 MMOL/L 05/17/2019 6:02 AM [facility] CO2 34.1(H) 21 - 32 MMOL/L 05/17/2019 6:02 AM [facility] CALCIUM S/P/B 9.5 8.5 - 10.1 MG/DL 05/17/2019 6:02 AM [facility] ANION GAP 5.9 5 - 15 MMOL/L 05/17/2019 6:02 AM [facility] BUN CREATININE RATIO 27.6(H) 6 - 26 05/17/2019 6:02 AM [facility] EGFR NON-AFR. AMER. 50(L) >90 ML/MIN/1.7 3 M2 05/17/2019 6:02 AM [facility] EGFR AFR. AMER. 58(L) >90 ML/MIN/1.7 3 M2 05/17/2019 6:02 AM [facility] Comment: NOTE: eGFR is not calculated for patients <18 years of age. This is an estimated GFR (CKD EPI) and should not be used for calculating drug doses. 05/17/2019 4:38 AM [employer] us Fabiola Carter MD LABORATORY Final Result Performing Organization Address [facility] Co de Phone Number [facility] [address] [place] [address], [place] [phone] * (ABNORMAL) POCT glucose (05/16/2019 8:56 PM [employer]) GLUCOSE POC 352(H) 70 - 99 mg/dL 05/16/2019 9:07 PM [facility] [facility] ORDERS INTERFACE 05/16/2019 8:56 PM [employer] us Loraine Penaloza MD POCT ORDERABLES - GILMA CE Final Result Performing Organization Address [facility] Co de Phone Number [facility] ORDERS INTERFACE [place] * (ABNORMAL) POCT glucose (05/16/2019 4:11 PM [employer]) GLUCOSE POC 190(H) 70 - 99 mg/dL 05/16/2019 5:06 PM [employer] [employer] [facility] LAB ORDERS INTERFACE 05/16/2019 4:11 PM [employer] us Loraine Penaloza MD POCT ORDERABLES - GILMA CE Final Result Performing Organization Address [facility] Co de Phone Number [facility] ORDERS INTERFACE US * (ABNORMAL) POCT glucose (05/16/2019 11:44 AM [employer]) GLUCOSE POC 218(H) 70 - 99 mg/dL 05/16/2019 12:53 PM [employer] [facility] LAB ORDERS INTERFACE 05/16/2019 11:4 4 AM [employer] us Loraine Penaloza MD POCT ORDERABLES - GILMA CE Final Result Performing Organization Address [facility] Co de Phone Number [facility] ORDERS INTERFACE US * (ABNORMAL) CBC W/DIFF AUTOMATED (05/16/2019 6:04 AM [facility]) [facility] Signature WBC 6.5 4.5 - 11.0 x10'3/uL 05/16/2019 7:08 AM [facility] RBC 2.71(L) 4.20 - 5.40 x10'6/uL 05/16/2019 7:08 AM [facility] HGB 8.0(L) 12.0 - 16.0 G/DL 05/16/2019 7:08 AM [facility] HCT 24.5(L) 38.0 - 48.0 % 05/16/2019 7:08 AM [facility] MCV 90.4 81.0 - 99.0 FL 05/16/2019 7:08 AM [facility] MCH 29.5 27.0 - 31.0 PG 05/16/2019 7:08 AM [facility] MCHC 32.7 32.0 - 36.0 G/DL 05/16/2019 7:08 AM [facility] RDW 15.5(H) 11.5 - 14.5 % 05/16/2019 7:08 AM [facility] PLT 224 130 - 400 x10'3/uL 05/16/2019 7:08 AM [facility] MPV 9.6 9.3 - 12.2 FL 05/16/2019 7:08 AM [facility] DIFFERENTIAL TYPE AUTOMATED DIFFERENTIAL 05/16/2019 7:08 AM [facility] NEUTROPHILS % 70.8 % 05/16/2019 7:08 AM [facility] LYMPHOCYTES % 16.4 % 05/16/2019 7:08 AM [facility] MONOCYTES % 10.0 % 05/16/2019 7:08 AM [facility] EOSINOPHILS 1.4 % 05/16/2019 7:08 AM [facility] BASOPHILS 0.5 % 05/16/2019 7:08 AM [facility] IMMATURE GRANS % 0.9 % 05/16/19 20 7:08 AM [facility] ABS. NEUTROPHILS TOTAL 4.59 1.80 - 7.70 x10'3/uL 05/16/2019 7:08 AM [facility] ABS. LYMPHOCYTES 1.06 1.00 - 4.80 x10'3/uL 05/16/2019 7:08 AM [facility] ABS. MONOCYTES 0.65 0.24 - 0.86 x10'3/uL 05/16/2019 7:08 AM [facility] ABS. EOSINOPHILS 0.09 0.04 - 0.36 x10'3/uL 05/16/2019 7:08 AM [facility] ABS. BASOPHILS 0.03 0.01 - 0.08 x10'3/uL 05/16/2019 7:08 AM [facility] ABS. IMMATURE GRANULOCYTES 0.06 0.00 - 0.49 x10'3/uL 05/16/2019 7:08 AM [facility] 05/16/2019 6:04 AM [facility] Fabiola Carter MD LABORATORY Final Result [facility] [address] [place] [address], * (ABNORMAL) BASIC METABOLIC PANEL (05/16/2019 6:04 AM [employer]) GLUCOSE 160(H) 70 - 99 MG/DL 05/16/2019 7:25 AM [facility] BUN 27(H) 7 - 18 MG/DL 05/16/2019 7:25 AM [facility] CREATININE S/P/B 0.87 0.55 - 1.02 MG/DL 05/16/2019 7:25 AM [facility] SODIUM S/P/B 137 136 - 145 MMOL/L 05/16/2019 7:25 AM [facility] POTASSIUM S/P/B 3.6 3.5 - 5.1 MMOL/L 05/16/2019 7:25 AM [facility] CHLORIDE S/P/B 98(L) 100 - 108 MMOL/L 05/16/2019 7:25 AM [facility] CO2 35.2(H) 21 - 32 MMOL/L 05/16/2019 7:25 AM [facility] CALCIUM S/P/B 8.9 8.5 - 10.1 MG/DL 05/16/2019 7:25 AM [facility] ANION GAP 3.8(L) 5 - 15 MMOL/L 05/16/2019 7:25 AM [facility] BUN CREATININE RATIO 31.0(H) 6 - 26 05/16/2019 7:25 AM [facility] EGFR NON-AFR. AMER. 70(L) >90 ML/MIN/1.7 3 M2 05/16/2019 7:25 AM [facility] EGFR AFR. AMER. 82(L) >90 ML/MIN/1.7 3 M2 05/16/2019 7:25 AM [facility] Comment: NOTE: eGFR is not calculated for patients <18 years of age. This is an estimated GFR (CKD EPI) and should not be used for calculating drug doses. 05/16/2019 6:04 AM [employer] Fabiola Carter MD LABORATORY Final Result [facility] [address] [place] [address], [place] [phone] * (ABNORMAL) POCT glucose (05/16/2019 5:36 AM [employer]) GLUCOSE POC 149(H) 70 - 99 mg/dL 05/16/2019 6:42 AM [employer] [facility] LAB ORDERS INTERFACE 05/16/2019 5:36 AM [employer] us Loraine Penaloza MD POCT ORDERABLES - GILMA CE Final Result Performing Organization Address [facility]/ZIP Co de Phone Number [facility] ORDERS INTERFACE US * (ABNORMAL) POCT glucose (05/15/2019 8:43 PM [employer]) GLUCOSE POC 189(H) 70 - 99 mg/dL 05/16/2019 11:47 AM [employer] [facility] LAB ORDERS INTERFACE 05/15/2019 8:43 PM [employer] us Loraine Penaloza MD POCT ORDERABLES - GILMA CE Final Result Performing Organization Address [facility] Co de Phone Number [facility] LAB ORDERS INTERFACE US * (ABNORMAL) POCT glucose (05/15/2019 4:44 PM [employer]) GLUCOSE POC 124(H) 70 - 99 mg/dL 05/15/2019 6:39 PM [employer] [facility] LAB ORDERS INTERFACE 05/15/2019 4:44 PM [employer] us Loraine Penaloza MD POCT ORDERABLES - GILMA CE Final Result Performing Organization Address City/[facility]/ZIP Co de Phone Number [facility] LAB ORDERS INTERFACE US * Transfuse RBC (05/15/2019 3:40 PM [employer]) us Fabiola Carter MD NURSING TREATMENT ORDERABLES - BLOOD ADMIN Final Result * Transfuse RBC (05/15/2019 3:40 PM [employer]) us Fabiola Carter MD NURSING TREATMENT ORDERABLES - BLOOD ADMIN Final Result * (ABNORMAL) POCT glucose (05/15/2019 11:42 AM [employer]) GLUCOSE POC 192(H) 70 - 99 mg/dL 05/15/2019 12:55 PM [employer] [facility] LAB ORDERS INTERFACE 05/15/2019 11:4 2 AM [employer] us Loraine Penaloza MD POCT ORDERABLES - GILMA CE Final Result [facility] LAB ORDERS INTERFACE US * TYPE & SCREEN (05/15/2019 9:34 AM [employer]) UNITS ORDERED 1 05/15/2019 11:05 AM [facility] ABO/RH O POSITIVE 05/15/2019 10:43 AM [facility] ANTIBODY SCREEN NEGATIVE 0 10:43 AM [facility] SAMPLE EXPIRATION 05/18/2019,2359 05/15/2019 10:43 AM [facility] BLOOD UNIT NUMBER [id number] 05/15/2019 11:05 AM [facility] PRODUCT: PC LEUKO PHERE BAG2 05/15/2019 11:05 AM [facility] UNIT DIVISION 00 05/15/2019 11:05 AM [facility] BLOOD UNIT STATUS TRANSFUSED,FINAL 05/16/2019 9:25 AM [facility] ISSUE DATE/TIME [id number] 9:25 AM [facility] PRODUCT CODE [id number] 05/16/2019 9:25 AM [facility] ABO/RH Unit O POS 05/16/2019 9:25 AM [facility] ABO/RH UNIT ISBT CODE 5100 05/16/2019 9:25 AM [facility] BLOOD UNIT EXPIRATION DATE [id number] 05/16/2019 9:25 AM [facility] TRANSFUSION STATUS OK TO TRANSFUSE 05/15/2019 11:05 AM [facility] CROSSMATCH COMPATIBLE-EXM 05/15/2019 11:05 AM [facility] 05/15/2019 9:34 AM [employer] us Fabiola Carter MD BLOOD BANK TEST ORDERABLES Debbie l Result [facility] [address] [place] [id number], [place] [phone] * (ABNORMAL) POCT glucose (05/15/2019 6:33 AM [employer] [facility]) GLUCOSE POC 156(H) 70 - 99 mg/dL 05/15/2019 6:48 AM [employer] [facility] LAB ORDERS INTERFACE 05/15/2019 6:33 AM [employer] us Loraine Penaloza MD POCT ORDERABLES - GILMA CE Final Result [facility] LAB ORDERS INTERFACE US * (ABNORMAL) CBC W/DIFF AUTOMATED (05/15/2019 4:57 AM [facility] [facility]) WBC 7.2 4.5 - 11.0 x10'3/uL 05/15/2019 6:08 AM [facility] RBC 2.28(L) 4.20 - 5.40 x10'6/uL 05/15/2019 6:08 AM [facility] HGB 6.7(LL) 12.0 - 16.0 G/DL 05/15/2019 6:08 AM [facility] Comment: This result has been called to FELICIA TAMAYO by CAROLYN CARNEY on 05 15 2019 at 0608, and has been read back. HCT 21.2(LL) 38.0 - 48.0 % 05/15/2019 6:08 AM [facility] Comment: This result has been called to FELICIA TAMAYO by CAROLYN CARNEY on 05 15 2019 at 0608, and has been read back. MCV 93.0 81.0 - 99.0 FL 05/15/2019 6:08 AM [facility] MCH 29.4 27.0 - 31.0 PG 05/15/2019 6:08 AM [facility] MCHC 31.6(L) 32.0 - 36.0 G/DL 05/15/2019 6:08 AM [facility] RDW 14.9(H) 11.5 - 14.5 % 05/15/2019 6:08 AM [facility] PLT 223 130 - 400 x10'3/uL 05/15/2019 6:08 AM [facility] MPV 10.0 9.3 - 12.2 FL 05/15/2019 6:08 AM [facility] DIFFERENTIAL TYPE AUTOMATED DIFFERENTIAL 05/15/2019 6:08 AM [facility] NEUTROPHILS % 73.0 % 05/15/2019 6:08 AM [facility] LYMPHOCYTES % 14.2 % 05/15/2019 6:08 AM [facility] MONOCYTES % 9.5 % 05/15/2019 6:08 AM [facility] EOSINOPHILS 1.8 % 05/15/2019 6:08 AM [facility] BASOPHILS 0.4 % 05/15/2019 6:08 AM [facility] IMMATURE GRANS % 1.1 % 05/15/19 20 6:08 AM [facility] ABS. NEUTROPHILS TOTAL 5.27 1.80 - 7.70 x10'3/uL 05/15/2019 6:08 AM [facility] ABS. LYMPHOCYTES 1.03 1.00 - 4.80 x10'3/uL 05/15/2019 6:08 AM [facility] ABS. MONOCYTES 0.69 0.24 - 0.86 x10'3/uL 05/15/2019 6:08 AM [facility] ABS. EOSINOPHILS 0.13 0.04 - 0.36 x10'3/uL 05/15/2019 6:08 AM [facility] ABS. BASOPHILS 0.03 0.01 - 0.08 x10'3/uL 05/15/2019 6:08 AM [facility] ABS. IMMATURE GRANULOCYTES 0.08 0.00 - 0.49 x10'3/uL 05/15/2019 6:08 AM [facility] 05/15/2019 4:57 AM [facility] Beth Cm MD LABORATORY Final Result [facility] [address] [place] [address], [place] [phone] * (ABNORMAL) BASIC METABOLIC PANEL (05/15/2019 4:57 AM [facility]) [facility] GLUCOSE 133(H) 70 - 99 MG/DL 05/15/2019 6:21 AM [facility] BUN 31(H) 7 - 18 MG/DL 05/15/2019 6:21 AM [facility] CREATININE S/P/B 1.04(H) 0.55 - 1.02 MG/DL 05/15/2019 6:21 AM [facility] SODIUM S/P/B 136 136 - 145 MMOL/L 05/15/2019 6:21 AM [facility] POTASSIUM S/P/B 3.8 3.5 - 5.1 MMOL/L 05/15/2019 6:21 AM [facility] CHLORIDE S/P/B 99(L) 100 - 108 MMOL/L 05/15/2019 6:21 AM [facility] CO2 33.2(H) 21 - 32 MMOL/L 05/15/2019 6:21 AM [facility] CALCIUM S/P/B 8.9 8.5 - 10.1 MG/DL 05/15/2019 6:21 AM [facility] ANION GAP 3.8(L) 5 - 15 MMOL/L 05/15/2019 6:21 AM [facility] BUN CREATININE RATIO 29.8(H) 6 - 26 05/15/2019 6:21 AM [facility] EGFR NON-AFR. AMER. 57(L) >90 ML/MIN/1.7 3 M2 05/15/2019 6:21 AM [facility] EGFR AFR. AMER. 66(L) >90 ML/MIN/1.7 3 M2 05/15/2019 6:21 AM [facility] Comment: NOTE: eGFR is not calculated for patients <18 years of age. This is an estimated GFR (CKD EPI) and should not be used for calculating drug doses. 05/15/2019 4:57 AM [employer] us Beth Cm MD LABORATORY Final Result [facility] [address] [place] [address], [place] [phone] * (ABNORMAL) POCT glucose (05/14/2019 9:25 PM [facility]) GLUCOSE POC 181(H) 70 - 99 mg/dL 05/15/2019 1:52 AM [facility] ORDERS INTERFACE 05/14/2019 9:25 PM [facility] Loraine Penaloza MD POCT ORDERABLES - GILMA CE Final Result Performing Organization Address [facility] Co de Phone Number [facility] ORDERS INTERFACE US * (ABNORMAL) POCT glucose (05/14/2019 4:29 PM [facility] [facility]) GLUCOSE POC 167(H) 70 - 99 mg/dL 05/15/2019 1:18 AM [facility] ORDERS INTERFACE 05/14/2019 4:29 PM [facility] Loraine Penaloza MD POCT ORDERABLES - GILMA CE Final Result Performing Organization Address [facility] de Phone Number [facility] ORDERS INTERFACE US * (ABNORMAL) HEMOGLOBIN AND HEMATOCRIT (05/14/2019 3:42 PM [facility]) HGB 7.6(L) 12.0 - 16.0 G/DL 05/14/2019 4:30 PM [facility] HCT 23.7(L) 38.0 - 48.0 % 05/14/2019 4:30 PM [facility] 05/14/2019 3:42 PM [facility] us Fabiola Carter MD LABORATORY Final Result Performing Organization Address City/[facility] Co de Phone Number [facility] [address] [place] [address], [place] [phone] * (ABNORMAL) POCT glucose (05/14/2019 11:54 AM [facility]) GLUCOSE POC 248(H) 70 - 99 mg/dL 05/14/2019 11:56 AM [facility] ORDERS INTERFACE 05/14/2019 11:5 4 AM [employer] [facility] us Loraine Penaloza MD POCT ORDERABLES - GILMA CE Final Result Performing Organization Address City/[facility] Co de Phone Number [facility] LAB ORDERS INTERFACE US * (ABNORMAL) POCT glucose (05/14/2019 6:42 AM [facility]) Pathologist [facility] GLUCOSE POC 188(H) 70 - 99 mg/dL 05/14/2019 11:51 AM [facility] LAB ORDERS INTERFACE 05/14/2019 6:42 AM [facility] [facility] us Loraine Penaloza MD POCT ORDERABLES - GILMA CE Final Result Performing Organization Address [facility] de Phone Number [facility] LAB ORDERS INTERFACE US * (ABNORMAL) CBC W/DIFF AUTOMATED (05/14/2019 4:35 AM [facility]) [facility] WBC 7.4 4.5 - 11.0 x10'3/uL 05/14/2019 6:03 AM [facility] RBC 2.47(L) 4.20 - 5.40 x10'6/uL 05/14/2019 6:03 AM [facility] HGB 7.3(LL) 12.0 - 16.0 G/DL 05/14/2019 6:03 AM [facility] Comment: This result has been called to TANISHA LIM by CAROLYN CARNEY on 05 14 2019 at 0602, and has been read back. HCT 22.7(LL) 38.0 - 48.0 % 05/14/2019 6:03 AM [facility] Comment: This result has been called to TANISHA LIM by CAROLYN CARNEY on 05 14 2019 at 0602, and has been read back. MCV 91.9 81.0 - 99.0 FL 05/14/2019 6:03 AM [facility] MCH 29.6 27.0 - 31.0 PG 05/14/2019 6:03 AM [facility] MCHC 32.2 32.0 - 36.0 G/DL 05/14/2019 6:03 AM [facility] RDW 14.6(H) 11.5 - 14.5 % 05/14/2019 6:03 AM [facility] PLT 229 130 - 400 x10'3/uL 05/14/2019 6:03 AM [facility] MPV 9.8 9.3 - 12.2 FL 05/14/2019 6:03 AM [facility] DIFFERENTIAL TYPE AUTOMATED DIFFERENTIAL 05/14/2019 6:03 AM [facility] NEUTROPHILS % 71.3 % 05/14/2019 6:03 AM [facility] LYMPHOCYTES % 15.9 % 05/14/2019 6:03 AM [facility] MONOCYTES % 9.2 % 05/14/2019 6:03 AM [facility] EOSINOPHILS 2.0 % 05/14/2019 6:03 AM [facility] BASOPHILS 0.5 % 05/14/2019 6:03 AM [facility] IMMATURE GRANS % 1.1 % 05/14/19 20 6:03 AM [facility] ABS. NEUTROPHILS TOTAL 5.27 1.80 - 7.70 x10'3/uL 05/14/2019 6:03 AM [facility] ABS. LYMPHOCYTES 1.18 1.00 - 4.80 x10'3/uL 05/14/2019 6:03 AM [facility] ABS. MONOCYTES 0.68 0.24 - 0.86 x10'3/uL 05/14/2019 6:03 AM [facility] ABS. EOSINOPHILS 0.15 0.04 - 0.36 x10'3/uL 05/14/2019 6:03 AM [facility] ABS. BASOPHILS 0.04 0.01 - 0.08 x10'3/uL 05/14/2019 6:03 AM [facility] ABS. IMMATURE GRANULOCYTES 0.08 0.00 - 0.49 x10'3/uL 05/14/2019 6:03 AM [facility] 05/14/2019 4:35 AM [employer] us Beth Cm MD LABORATORY Final Result [facility] [address] [place] [address], [place] [phone] * (ABNORMAL) BASIC METABOLIC PANEL (05/14/2019 4:35 AM [employer]) GLUCOSE 160(H) 70 - 99 MG/DL 05/14/2019 6:22 AM [facility] BUN 27(H) 7 - 18 MG/DL 05/14/2019 6:22 AM [facility] CREATININE S/P/B 0.87 0.55 - 1.02 MG/DL 05/14/2019 6:22 AM [facility] SODIUM S/P/B 134(L) 136 - 145 MMOL/L 05/14/2019 6:22 AM [facility] POTASSIUM S/P/B 4.2 3.5 - 5.1 MMOL/L 05/14/2019 6:22 AM [facility] CHLORIDE S/P/B 99(L) 100 - 108 MMOL/L 05/14/2019 6:22 AM [facility] CO2 31.1 21 - 32 MMOL/L 05/14/2019 6:22 AM [facility] CALCIUM S/P/B 8.9 8.5 - 10.1 MG/DL 05/14/2019 6:22 AM [facility] [facility] ANION GAP 3.9(L) 5 - 15 MMOL/L 05/14/2019 6:22 AM [facility] BUN CREATININE RATIO 31.0(H) 6 - 26 05/14/2019 6:22 AM [facility] EGFR NON-AFR. AMER. 70(L) >90 ML/MIN/1.7 3 M2 05/14/2019 6:22 AM [facility] EGFR AFR. AMER. 82(L) >90 ML/MIN/1.7 3 M2 05/14/2019 6:22 AM [facility] Comment: NOTE: eGFR is not calculated for patients <18 years of age. This is an estimated GFR (CKD EPI) and should not be used for calculating drug doses. 05/14/2019 4:35 AM [employer] us Beth Cm MD LABORATORY Final Result [facility] [address] [place] [id number], [place] [phone] * (ABNORMAL) POCT glucose (05/13/2019 9:11 PM [employer]) GLUCOSE POC 163(H) 70 - 99 mg/dL 05/13/2019 10:32 PM [employer] [facility] LAB ORDERS INTERFACE 05/13/2019 9:11 PM [employer] us Loraine Penaloza MD POCT ORDERABLES - [place] CE Final Result [facility] ORDERS INTERFACE US * (ABNORMAL) POCT glucose (05/13/2019 4:58 PM [employer]) GLUCOSE POC 260(H) 70 - 99 mg/dL 05/13/2019 5:15 PM [employer] [facility] LAB ORDERS INTERFACE 05/13/2019 4:58 PM [employer] Loraine Penaloza MD POCT ORDERABLES - [place] CE Final Result [facility] LAB ORDERS INTERFACE US * (ABNORMAL) POCT glucose (05/13/2019 12:02 PM [employer]) GLUCOSE POC 246(H) 70 - 99 mg/dL 05/13/2019 12:46 PM [employer] [facility] LAB ORDERS INTERFACE 05/13/2019 12:0 2 PM [employer] Loraine Penaloza MD POCT ORDERABLES - [place] CE Final Result Performing Organization Address City/[facility] Co de Phone Number [facility] LAB ORDERS INTERFACE US * ECG 12 lead (05/13/2019 11:54 AM [employer]) 05/13/2019 11:5 4 AM [employer] Narrative [facility] ([facility]) RAD - 05/13/2019 8:53 PM MEDICAL TECHNICIANS ?[facility] ? [address] [place] ? Test Date: ?2019-05-13 Pat Name: ? IRIS GIL ? Department: ? Room: ? [id number] Gender: ? Female ? 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 JMV : ?1955 ? Requested By: BETH CM Order Number: [id number] ? Reading MD: ?? Halle Del Valle ? Measurements Intervals ?Isabel ? Rate: ? 89 ? P: ?53 SD: ? 150 ?QRS: ?-29 QRSD: ? 105 ?T: ?117 QT: ? 378 ? QTc: ?460 ? 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: KAYLEE : 1955 Requested By: BETH CM Order Number: [id number] Reading MD: Halle Del Valle Measurements Intervals Isabel Rate: 89 P: 53 SD: 150 QRS: -29 QRSD: 105 T: 117 QT: 378 QTc: 460 Interpretive Statements SINUS RHYTHM ANTERIOR MYOCARDIAL INFARCTION , OF INDETERMINATE AGE Nonspecific ST-T abnormality No previous ECG available for comparison CAL TE[facility] us Beth Cm MD ECG ORDERABLES Final Result Performing Organization Address City/[facility]/ZIP Co de Phone Number [facility] * (ABNORMAL) POCT glucose (05/13/2019 5:20 AM [facility]) GLUCOSE POC 213(H) 70 - 99 mg/dL 05/13/2019 6:24 AM [facility] LAB ORDERS INTERFACE 05/13/2019 5:20 AM [facility] us Loraine Penaloza MD POCT ORDERABLES - GILMA CE Final Result Performing Organization Address City/[facility]/ZIP Co de Phone Number [facility] LAB ORDERS INTERFACE US * (ABNORMAL) POCT glucose (05/12/2019 8:24 PM [facility]) GLUCOSE POC 229(H) 70 - 99 mg/dL 05/12/2019 8:48 PM [facility] LAB ORDERS INTERFACE 05/12/2019 8:24 PM [facility] us Loraine Penaloza MD POCT ORDERABLES - GILMA CE Final Result [facility] LAB ORDERS INTERFACE US * (ABNORMAL) POCT glucose (05/12/2019 4:41 PM [facility]) GLUCOSE POC 197(H) 70 - 99 mg/dL 05/12/2019 5:11 PM [facility] [employer] LAB ORDERS INTERFACE 05/12/2019 4:41 PM [facility] [employer] us Loraine Penaloza MD POCT ORDERABLES - GILMA CE Final Result Performing Organization Address [facility]/ZIP Co de Phone Number [facility] LAB ORDERS INTERFACE US * (ABNORMAL) POCT glucose (05/12/2019 11:56 AM [facility]) GLUCOSE POC 212(H) 70 - 99 mg/dL 05/12/2019 12:48 PM [facility] LAB ORDERS INTERFACE 05/12/2019 11:5 6 AM [facility] us Loraine Penaloza MD POCT ORDERABLES - GILMA CE Final Result Performing Organization Address City/[facility] de Phone Number [facility] LAB ORDERS INTERFACE US * (ABNORMAL) BASIC METABOLIC PANEL (05/12/2019 6:29 AM [facility]) [facility] GLUCOSE 97 70 - 99 MG/DL 05/12/2019 7:14 AM [facility] BUN 19(H) 7 - 18 MG/DL 05/12/2019 7:14 AM [facility] CREATININE S/P/B 0.63 0.55 - 1.02 MG/DL 05/12/2019 7:14 AM [facility] SODIUM S/P/B 139 136 - 145 MMOL/L 05/12/2019 7:14 AM [facility] POTASSIUM S/P/B 3.6 3.5 - 5.1 MMOL/L 05/12/2019 7:14 AM [facility] CHLORIDE S/P/B 104 100 - 108 MMOL/L 05/12/2019 7:14 AM [facility] CO2 30.6 21 - 32 MMOL/L 05/12/2019 7:14 AM [facility] CALCIUM S/P/B 8.5 8.5 - 10.1 MG/DL 05/12/2019 7:14 AM [facility] ANION GAP 4.4(L) 5 - 15 MMOL/L 05/12/2019 7:14 AM [facility] BUN CREATININE RATIO 30.0(H) 6 - 26 05/12/2019 7:14 AM [facility] EGFR NON-AFR. AMER. >90 >90 ML/MIN/1.7 3 M2 05/12/2019 7:14 AM [facility] EGFR AFR. AMER. >90 >90 ML/MIN/1.7 3 M2 05/12/2019 7:14 AM [facility] Comment: NOTE: eGFR is not calculated for patients <18 years of age. This is an estimated GFR (CKD EPI) and should not be used for calculating drug doses. 05/12/2019 6:29 AM [facility] us Sharon Ortez NP LABORATORY Final Resul t [facility] [address] [place] [address], [place] [phone] * (ABNORMAL) CBC W/DIFF AUTOMATED (05/12/2019 6:29 AM [facility]) WBC 6.3 4.5 - 11.0 x10'3/uL 05/12/2019 6:52 AM [facility] RBC 2.74(L) 4.20 - 5.40 x10'6/uL 05/12/2019 6:52 AM [facility] HGB 8.0(L) 12.0 - 16.0 G/DL 05/12/2019 6:52 AM [facility] HCT 25.0(L) 38.0 - 48.0 % 05/12/2019 6:52 AM [facility] MCV 91.2 80.0 - 94.0 FL 05/12/2019 6:52 AM [facility] MCH 29.2 27.0 - 31.0 PG 05/12/2019 6:52 AM [facility] MCHC 32.0 32.0 - 36.0 G/DL 05/12/2019 6:52 AM [facility] RDW 14.4 11.5 - 14.5 % 05/12/2019 6:52 AM [facility] PLT 245 130 - 400 x10'3/uL 05/12/2019 6:52 AM [facility] MPV 9.6 9.3 - 12.2 FL 05/12/2019 6:52 AM [facility] DIFFERENTIAL TYPE AUTOMATED DIFFERENTIAL 05/12/2019 6:52 AM [facility] NEUTROPHILS % 71.9 % 05/12/2019 6:52 AM [facility] LYMPHOCYTES % 16.1 % 05/12/2019 6:52 AM [facility] MONOCYTES % 7.5 % 05/12/2019 6:52 AM [facility] EOSINOPHILS 2.7 % 05/12/2019 6:52 AM [facility] BASOPHILS 0.5 % 05/12/2019 6:52 AM [facility] IMMATURE GRANS % 1.3 % 05/12/19 20 6:52 AM [facility] ABS. NEUTROPHILS TOTAL 4.51 1.80 - 7.70 x10'3/uL 05/12/2019 6:52 AM [facility] ABS. LYMPHOCYTES 1.01 1.00 - 4.80 x10'3/uL 05/12/2019 6:52 AM [facility] ABS. MONOCYTES 0.47 0.24 - 0.86 x10'3/uL 05/12/2019 6:52 AM [facility] ABS. EOSINOPHILS 0.17 0.04 - 0.36 x10'3/uL 05/12/2019 6:52 AM [facility] ABS. BASOPHILS 0.03 0.01 - 0.08 x10'3/uL 05/12/2019 6:52 AM [facility] ABS. IMMATURE GRANULOCYTES 0.08 0.00 - 0.49 x10'3/uL 05/12/2019 6:52 AM [facility] 05/12/2019 6:29 AM [facility] Sharon Ortez NP LABORATORY Final Resul t [facility] [address] [place] [id number], [place] [phone] * POCT glucose (05/12/2019 6:28 AM [facility]) GLUCOSE POC 95 70 - 99 mg/dL 05/12/2019 6:41 AM [facility] LAB ORDERS INTERFACE 05/12/2019 6:28 AM [facility] us Loraine Penaloza MD POCT ORDERABLES - GILMA CE Final Result [facility] LAB ORDERS INTERFACE US * (ABNORMAL) POCT glucose (05/11/2019 8:34 PM [facility]) GLUCOSE POC 267(H) 70 - 99 mg/dL 05/11/2019 9:16 PM [facility] LAB ORDERS INTERFACE 05/11/2019 8:34 PM [facility] Loraine Penaloza MD POCT ORDERABLES - GILMA CE Final Result [facility] LAB ORDERS INTERFACE US * (ABNORMAL) POCT glucose (05/11/2019 5:18 PM [facility]) GLUCOSE POC 216(H) 70 - 99 mg/dL 05/11/2019 5:56 PM [facility] LAB ORDERS INTERFACE 05/11/2019 5:18 PM [facility] [employer] us Loraine Penaloza MD POCT ORDERABLES - GILMA CE Final Result [facility] LAB ORDERS INTERFACE US * (ABNORMAL) POCT glucose (05/11/2019 11:59 AM [facility]) GLUCOSE POC 205(H) 70 - 99 mg/dL 05/11/2019 9:16 PM [facility] LAB ORDERS INTERFACE 05/11/2019 11:5 9 AM [facility] us Loraine Penaloza MD POCT ORDERABLES - GILMA CE Final Result Performing Organization Address City/[facility] Co de Phone Number [facility] LAB ORDERS INTERFACE US * (ABNORMAL) CBC W/DIFF AUTOMATED (05/11/2019 6:36 AM [facility]) [facility] WBC 7.8 4.5 - 11.0 x10'3/uL 05/11/2019 7:57 AM [facility] RBC 2.64(L) 4.20 - 5.40 x10'6/uL 05/11/2019 7:57 AM [facility] HGB 7.7(L) 12.0 - 16.0 G/DL 05/11/2019 7:57 AM [facility] HCT 24.1(L) 38.0 - 48.0 % 05/11/2019 7:57 AM [facility] MCV 91.3 81.0 - 99.0 FL 05/11/2019 7:57 AM [facility] MCH 29.2 27.0 - 31.0 PG 05/11/2019 7:57 AM [facility] MCHC 32.0 32.0 - 36.0 G/DL 05/11/2019 7:57 AM [facility] RDW 14.4 11.5 - 14.5 % 05/11/2019 7:57 AM [facility] PLT 265 130 - 400 x10'3/uL 05/11/2019 7:57 AM [facility] MPV 9.9 9.3 - 12.2 FL 05/11/2019 7:57 AM [facility] DIFFERENTIAL TYPE AUTOMATED DIFFERENTIAL 05/11/2019 7:57 AM [facility] NEUTROPHILS % 71.1 % 05/11/2019 7:57 AM [facility] LYMPHOCYTES % 15.9 % 05/11/2019 7:57 AM [facility] MONOCYTES % 7.9 % 05/11/2019 7:57 AM [facility] EOSINOPHILS 2.3 % 05/11/2019 7:57 AM [facility] BASOPHILS 0.6 % 05/11/2019 7:57 AM [facility] IMMATURE GRANS % 2.2 % 05/11/19 20 7:57 AM [facility] ABS. NEUTROPHILS TOTAL 5.55 1.80 - 7.70 x10'3/uL 05/11/2019 7:57 AM [facility] ABS. LYMPHOCYTES 1.24 1.00 - 4.80 x10'3/uL 05/11/2019 7:57 AM [facility] ABS. MONOCYTES 0.62 0.24 - 0.86 x10'3/uL 05/11/2019 7:57 AM [facility] ABS. EOSINOPHILS 0.18 0.04 - 0.36 x10'3/uL 05/11/2019 7:57 AM [facility] ABS. BASOPHILS 0.05 0.01 - 0.08 x10'3/uL 05/11/2019 7:57 AM [facility] ABS. IMMATURE GRANULOCYTES 0.17 0.00 - 0.49 x10'3/uL 05/11/2019 7:57 AM [facility] 05/11/2019 6:36 AM [facility] us Ekaterina Barlow MD LABORATORY Final Result Performing Organization Address [facility] Co de Phone Number [facility] [address] [id number], * (ABNORMAL) POCT glucose (05/11/2019 6:24 AM [facility]) GLUCOSE POC 139(H) 70 - 99 mg/dL 05/11/2019 6:40 AM [facility] LAB ORDERS INTERFACE 05/11/2019 6:24 AM [facility] us Loraine Penaloza MD POCT ORDERABLES - GILMA CE Final Result Performing Organization Address [facility] Co de Phone Number [facility] LAB ORDERS INTERFACE US * (ABNORMAL) POCT glucose (05/10/2019 8:46 PM [facility]) GLUCOSE POC 269(H) 70 - 99 mg/dL 05/10/2019 9:16 PM [facility] LAB ORDERS INTERFACE 05/10/2019 8:46 PM [facility] us Loraine Penaloza MD POCT ORDERABLES - GILMA CE Final Result Performing Organization Address [facility]/ZIP Co de Phone Number [facility] LAB ORDERS INTERFACE US * (ABNORMAL) POCT glucose (05/10/2019 5:08 PM [facility]) GLUCOSE POC 215(H) 70 - 99 mg/dL 05/10/2019 5:27 PM [facility] LAB ORDERS INTERFACE 05/10/2019 5:08 PM [facility] us Loraine Penaloza MD POCT ORDERABLES - GILMA CE Final Result Performing Organization Address [facility] de Phone Number [facility] LAB ORDERS INTERFACE US * (ABNORMAL) POCT glucose (05/10/2019 11:38 AM [facility]) GLUCOSE POC 250(H) 70 - 99 mg/dL 05/10/2019 11:58 AM [facility] LAB ORDERS INTERFACE 05/10/2019 11:3 8 AM [facility] us Loraine Penaloza MD POCT ORDERABLES - GILMA CE Final Result Performing Organization Address [facility] de Phone Number [facility] LAB ORDERS INTERFACE US * (ABNORMAL) POCT glucose (05/10/2019 6:18 AM [facility]) GLUCOSE POC 188(H) 70 - 99 mg/dL 05/10/2019 12:19 PM [facility] LAB ORDERS INTERFACE 05/10/2019 6:18 AM [facility] us Loraine Penaloza MD POCT ORDERABLES - GILMA CE Final Result Performing Organization Address [facility] de Phone Number [facility] LAB ORDERS INTERFACE US * (ABNORMAL) CBC W/DIFF AUTOMATED (05/10/2019 5:38 AM [facility]) WBC 8.0 4.5 - 11.0 x10'3/uL 05/10/2019 7:14 AM [facility] RBC 2.64(L) 4.20 - 5.40 x10'6/uL 05/10/2019 7:14 AM [facility] HGB 7.8(L) 12.0 - 16.0 G/DL 05/10/2019 7:14 AM [facility] HCT 23.9(L) 38.0 - 48.0 % 05/10/2019 7:14 AM [facility] MCV 90.5 81.0 - 99.0 FL 05/10/2019 7:14 AM [facility] MCH 29.5 27.0 - 31.0 PG 05/10/2019 7:14 AM [facility] MCHC 32.6 32.0 - 36.0 G/DL 05/10/2019 7:14 AM [facility] RDW 14.0 11.5 - 14.5 % 05/10/2019 7:14 AM [facility] PLT 267 130 - 400 x10'3/uL 05/10/2019 7:14 AM [facility] MPV 9.9 9.3 - 12.2 FL 05/10/2019 7:14 AM [facility] DIFFERENTIAL TYPE AUTOMATED DIFFERENTIAL 05/10/2019 7:14 AM [facility] NEUTROPHILS % 75.0 % 05/10/2019 7:14 AM [facility] LYMPHOCYTES % 14.3 % 05/10/2019 7:14 AM [facility] MONOCYTES % 6.7 % 05/10/2019 7:14 AM [facility] EOSINOPHILS 1.6 % 05/10/2019 7:14 AM [facility] BASOPHILS 0.5 % 05/10/2019 7:14 AM [facility] IMMATURE GRANS % 1.9 % 05/10/19 20 7:14 AM [facility] ABS. NEUTROPHILS TOTAL 6.02 1.80 - 7.70 x10'3/uL 05/10/2019 7:14 AM [facility] ABS. LYMPHOCYTES 1.15 1.00 - 4.80 x10'3/uL 05/10/2019 7:14 AM [facility] ABS. MONOCYTES 0.54 0.24 - 0.86 x10'3/uL 05/10/2019 7:14 AM [facility] ABS. EOSINOPHILS 0.13 0.04 - 0.36 x10'3/uL 05/10/2019 7:14 AM [facility] ABS. BASOPHILS 0.04 0.01 - 0.08 x10'3/uL 05/10/2019 7:14 AM [facility] ABS. IMMATURE GRANULOCYTES 0.15 0.00 - 0.49 x10'3/uL 05/10/2019 7:14 AM [facility] 05/10/2019 5:38 AM [facility] Loraine Penaloza MD LABORATORY Final Result [facility] [address] [place] [address], * (ABNORMAL) BASIC METABOLIC PANEL (05/10/2019 5:38 AM [facility]) GLUCOSE 174(H) 70 - 99 MG/DL 05/10/2019 7:25 AM [facility] BUN 20(H) 7 - 18 MG/DL 05/10/2019 7:25 AM [facility] CREATININE S/P/B 0.75 0.55 - 1.02 MG/DL 05/10/2019 7:25 AM [facility] SODIUM S/P/B 137 136 - 145 MMOL/L 05/10/2019 7:25 AM [facility] POTASSIUM S/P/B 3.7 3.5 - 5.1 MMOL/L 05/10/2019 7:25 AM [facility] CHLORIDE S/P/B 103 100 - 108 MMOL/L 05/10/2019 7:25 AM [facility] CO2 27.9 21 - 32 MMOL/L 05/10/2019 7:25 AM [facility] CALCIUM S/P/B 8.1(L) 8.5 - 10.1 MG/DL 05/10/2019 7:25 AM [facility] ANION GAP 6.1 5 - 15 MMOL/L 05/10/2019 7:25 AM [facility] BUN CREATININE RATIO 26.6(H) 6 - 26 05/10/2019 7:25 AM [facility] EGFR NON-AFR. AMER. 84(L) >90 ML/MIN/1.7 3 M2 05/10/2019 7:25 AM [facility] EGFR AFR. AMER. >90 >90 ML/MIN/1.7 3 M2 05/10/2019 7:25 AM [facility] Comment: NOTE: eGFR is not calculated for patients <18 years of age. This is an estimated GFR (CKD EPI) and should not be used for calculating drug doses. 05/10/2019 5:38 AM [facility] Loraine Penaloza MD LABORATORY Final Result [facility] [address] [place] [address], [place] [phone] * (ABNORMAL) POCT glucose (05/09/2019 8:00 PM [facility]) GLUCOSE POC 270(H) 70 - 99 mg/dL 05/10/2019 3:02 AM [facility] ORDERS INTERFACE 05/09/2019 8:00 PM [facility] us Loraine Penaloza MD POCT ORDERABLES - GILMA CE Final Result Performing Organization Address City/[facility] Co de Phone Number [facility] LAB ORDERS INTERFACE US * (ABNORMAL) POCT glucose (05/09/2019 5:03 PM [facility]) GLUCOSE POC 191(H) 70 - 99 mg/dL 05/09/2019 5:14 PM [facility] LAB ORDERS INTERFACE 05/09/2019 5:03 PM [facility] us Loraine Penaloza MD POCT ORDERABLES - GILMA CE Final Result Performing Organization Address [facility] Co de Phone Number [facility] LAB ORDERS INTERFACE US * IR MIDLINE PLACEMENT GREATER 3YR (05/09/2019 3:16 PM [facility]) Anatomical Region Laterality Modality Chest Interventional R adiology 05/09/2019 3:53 PM [facility] Impressions 05/09/2019 4:02 PM [facility] IMPRESSION: 1. Technically successful, right mid arm brachial 4 Cameroonian 20 cm midline catheter placement. Narrative 05/09/2019 4:02 PM [facility] EXAMINATION: Ultrasound fluoroscopy guided peripherally inserted midline catheter placement REASON FOR EXAM: 64 female. Venous access needed. Midline placement requested. COMPARISON: None TECHNIQUE: Informed verbal and written consent was obtained from the patient, patient's medical decision maker. Procedure were discussed including the alternatives, benefits and risks. Patient was positioned supine. The right upper arm was assessed for venous patency. The basilic vein is diminutive. A large brachial vein was identified and targeted in the mid upper arm. ??Patency was confirmed with ultrasound and an image stored and saved in the imaging archive. The right upper arm was prepped and draped in usual sterile fashion. Lidocaine 1% was used for local anesthesia. 21-gauge micropuncture needle access was obtained with fluoroscopic confirmation of intravascular wire access. A small skin incision was then made. Needle was removed and midline sheath advanced over the wire. Wire and dilator removed and a 4 Cameroonian 20 cm single midline was advanced to the level of the axillary vein. Position was confirmed fluoroscopically. Catheter was secured to the skin with adhesive dressing. Patient tolerated the procedure well. There were no immediate complications. Fluoroscopy time: 2 seconds Number of images: 2 saved Procedure Note Yolanda Wing MD - 05/09/2019 EXAMINATION: Ultrasound fluoroscopy guided peripherally inserted midline catheter placement REASON FOR EXAM: 64 female. Venous access needed. Midline placement requested. COMPARISON: None TECHNIQUE: Informed verbal and written consent was obtained from the patient, patient's medical decision maker. Procedure were discussed including the alternatives, benefits and risks. Patient was positioned supine. The right upper arm was assessed forvenous patency. The basilic vein is diminutive. A large brachial vein was identified and targeted in the mid upper arm. Patency was confirmedwith ultrasound and an image stored and saved in the imaging archive. Theright upper arm was prepped and draped in usual sterile fashion. Lidocaine 1%was used for local anesthesia. 21-gauge micropuncture needle access was obtained with fluoroscopic confirmation of intravascular wire access. A small skin incision was then made. Needle was removed and midline sheath advanced over the wire. Wire and dilator removed and a 4 Cameroonian 20 cm single midline wasadvanced to the level of the axillary vein. Position was confirmedfluoroscopically. Catheter was secured to the skin with adhesive dressing. Patienttolerated the procedure well. There were no immediate complications. Fluoroscopy time: 2 seconds Number of images: 2 saved IMPRESSION: 1. Technically successful, right mid arm brachial 4 Cameroonian 20 cm midline catheter placement. Loraine Penaloza MD INTERVENTIONAL RADIOLO GY Final Result * (ABNORMAL) POCT glucose (05/09/2019 11:22 AM [facility]) GLUCOSE POC 282(H) 70 - 99 mg/dL 05/09/2019 11:58 AM [facility] ORDERS INTERFACE 05/09/2019 11:2 2 AM [facility] Loraine Penaloza MD POCT ORDERABLES - GIL[place] CE Final Result [facility] ORDERS INTERFACE US * (ABNORMAL) CBC W/DIFF AUTOMATED (05/09/2019 7:38 AM [facility]) WBC 7.0 4.5 - 11.0 x10'3/uL 05/09/2019 7:48 AM [facility] RBC 3.06(L) 4.20 - 5.40 x10'6/uL 05/09/2019 7:48 AM [facility] HGB 8.9(L) 12.0 - 16.0 G/DL 05/09/2019 7:48 AM [facility] HCT 27.4(L) 38.0 - 48.0 % 05/09/2019 7:48 AM [facility] MCV 89.5 80.0 - 94.0 FL 05/09/2019 7:48 AM [facility] MCH 29.1 27.0 - 31.0 PG 05/09/2019 7:48 AM [facility] MCHC 32.5 32.0 - 36.0 G/DL 05/09/2019 7:48 AM [facility] RDW 13.9 11.5 - 14.5 % 05/09/2019 7:48 AM [facility] PLT 271 130 - 400 x10'3/uL 05/09/2019 7:48 AM [facility] MPV 9.7 9.3 - 12.2 FL 05/09/2019 7:48 AM [facility] DIFFERENTIAL TYPE AUTOMATED DIFFERENTIAL 05/09/2019 7:48 AM [facility] NEUTROPHILS % 79.7 % 05/09/2019 7:48 AM [facility] LYMPHOCYTES % 10.4 % 05/09/2019 7:48 AM [facility] MONOCYTES % 6.6 % 05/09/2019 7:48 AM [facility] EOSINOPHILS 1.4 % 05/09/2019 7:48 AM [facility] BASOPHILS 0.6 % 05/09/2019 7:48 AM [facility] IMMATURE GRANS % 1.3 % 05/09/19 7:48 AM [facility] [facility] ABS. NEUTROPHILS TOTAL 5.54 1.80 - 7.70 x10'3/uL 05/09/2019 7:48 AM [facility] ABS. LYMPHOCYTES 0.72(L) 1.00 - 4.80 x10'3/uL 05/09/2019 7:48 AM [facility] LAB ABS. MONOCYTES 0.46 0.24 - 0.86 x10'3/uL 05/09/2019 7:48 AM [facility] LAB ABS. EOSINOPHILS 0.10 0.04 - 0.36 x10'3/uL 05/09/2019 7:48 AM [facility] LAB ABS. BASOPHILS 0.04 0.01 - 0.08 x10'3/uL 05/09/2019 7:48 AM [facility] LAB ABS. IMMATURE GRANULOCYTES 0.09 0.00 - 0.49 x10'3/uL 05/09/2019 7:48 AM [facility] LAB 05/09/2019 7:38 AM [facility] us Loraine Penaloza MD LABORATORY Final Result [facility] [address] [place] [address], [place] [phone] * (ABNORMAL) BASIC METABOLIC PANEL (05/09/2019 7:38 AM [facility]) GLUCOSE 261(H) 70 - 99 MG/DL 05/09/2019 11:08 AM [facility] BUN 16 7 - 18 MG/DL 05/09/2019 11:08 AM [facility] LAB CREATININE S/P/B 0.80 0.55 - 1.02 MG/DL 05/09/2019 11:08 AM [facility] LAB SODIUM S/P/B 137 136 - 145 MMOL/L 05/09/2019 11:08 AM [facility] LAB POTASSIUM S/P/B 3.3(L) 3.5 - 5.1 MMOL/L 05/09/2019 11:08 AM [facility] LAB CHLORIDE S/P/B 103 100 - 108 MMOL/L 05/09/2019 11:08 AM [facility] LAB CO2 30.0 21 - 32 MMOL/L 05/09/2019 11:08 AM [facility] LAB CALCIUM S/P/B 7.9(L) 8.5 - 10.1 MG/DL 05/09/2019 11:08 AM [facility] LAB ANION GAP 4.0(L) 5 - 15 MMOL/L 05/09/2019 11:08 AM [facility] LAB BUN CREATININE RATIO 20.1 6 - 26 05/09/2019 11:08 AM [facility] LAB EGFR NON-AFR. AMER. 78(L) >90 ML/MIN/1.7 3 M2 05/09/2019 11:08 AM [facility] LAB EGFR AFR. AMER. >90 >90 ML/MIN/1.7 3 M2 05/09/2019 11:08 AM [facility] Comment: NOTE: eGFR is not calculated for patients <18 years of age. This is an estimated GFR (CKD EPI) and should not be used for calculating drug doses. 05/09/2019 7:38 AM [facility] us Loraine Penaloza MD LABORATORY Final Result [facility] [address] [place] [address], [place] [phone] * (ABNORMAL) POCT glucose (05/09/2019 4:53 AM [facility]) GLUCOSE POC 255(H) 70 - 99 mg/dL 05/09/2019 6:34 AM [facility] LAB ORDERS INTERFACE 05/09/2019 4:53 AM [facility] us Loraine Penaloza MD POCT ORDERABLES - GILMA CE Final Result Performing Organization Address City/[facility]/ZIP Co de Phone Number [facility] LAB ORDERS INTERFACE US * (ABNORMAL) POCT glucose (05/08/2019 8:55 PM [facility]) GLUCOSE POC 199(H) 70 - 99 mg/dL 05/08/2019 9:32 PM [facility] LAB ORDERS INTERFACE 05/08/2019 8:55 PM [facility] us Loraine Penaloza MD POCT ORDERABLES - GILMA CE Final Result Performing Organization Address City/[facility]/ZIP Co de Phone Number [facility] LAB ORDERS INTERFACE US * (ABNORMAL) POCT glucose (05/08/2019 4:08 PM [facility]) GLUCOSE POC 108(H) 70 - 99 mg/dL 05/08/2019 4:13 PM [facility] LAB ORDERS INTERFACE 05/08/2019 4:08 PM [facility] us Loraine Penaloza MD POCT ORDERABLES - GILMA CE Final Result Performing Organization Address City/[facility]/ZIP Co de Phone Number [facility] LAB ORDERS INTERFACE US * (ABNORMAL) POCT glucose (05/08/2019 11:40 AM [facility]) GLUCOSE POC 126(H) 70 - 99 mg/dL 05/08/2019 11:45 AM [facility] LAB ORDERS INTERFACE 05/08/2019 11:4 0 AM [facility] us Loraine Penaloza MD POCT ORDERABLES - GILMA CE Final Result [facility] LAB ORDERS INTERFACE US * USV ART REST W REBECCA LOW EXT (05/08/2019 11:02 AM [facility]) Anatomical Region Laterality Modality Extremity Vascular Ultraso und 05/08/2019 10:4 8 AM [facility] Narrative 05/11/2019 1:33 PM [facility] ?ARTERIAL DOPPLER - REBECCA ?BILATERAL LOWER EXTREMITY ? VASCULAR LAB Pat.Name: ??IRIS GIL ? Pat.ID: ?[id number] ? St.Date: ?? 05/08/2019 ? Refer.: ??Rick Glez ? Exam Time: 10:48:00 AM ? Study Type:FRANCISCO VS Arterial Doppler Legs BRENDON ??Age: ??1955,64Y ? Sex: ? FEMALE ? Sonogrphr: THAI Benjamin ?Pat. Stat.:Inpatient ? Room: ?504 ? History / Clinical: LLE non healing wound; PMH- breast CA, DM, HTN, Chronic LE wounds; BMI 38, cellulitis, Prior Rt REBECCA 0.72, toe index 0.49; Lt REBECCA 0.76, toe index 0.52 Procedures: ??Doppler waveforms, Digit PPG, Systolic Pressures w/REBECCA Race: ?B ? ++++++++++++++++++++++++++++++++++++ SUMMARY: ++++++++++++++++++++++++++++++++++++ Rom REBECCA Criteria: ? >1.30 = falsely elevated, calcified vessels; ?1.00-1.29 = no signif ischemia at rest ; ?.80-.99 = mild PAD, asymptomatic; ? .50-.79 = moderate PAD, claudication; ?<.50 = severe PAD, rest pain; ?<.30 = critical PAD, necrosis, poor healing ?(Digits: ??DBI >.60 Normal; ?? <.60 Abnormal) ? (Positive Stress eval: ??REBECCA decrease of >.20 or >20% pressure drop) Right leg: ??Common Femoral waveform is triphasic, high amplitude; Popliteal mono-biphasic, medium amplitude; ??Posterior Tibial biphasic, high amplitude with REBECCA 0.675 ; ??DP/Anterior Tibial biphasic, low amplitude with REBECCA 0.69 . ??Digit flow by PPG is low amplitude with DBI 0.225 . Left leg: ??Common Femoral waveform is triphasic, high amplitude; Popliteal biphasic, high amplitude; ??Posterior Tibial biphasic, medium amplitude with REBECCA 0 ; ??DP/Anterior Tibial biphasic, medium amplitude with REBECCA 0.615 . ??Digit flow by PPG is medium amplitude with DBI 0.23 . Patient refused BP in left arm due to PCP recommendation Compared to previous exam done 01/08/2019 , there is mild disease progression, on the left. CONCLUSION: ?? REBECCA right leg 0.690, with toe index 0.225 , in the range of moderate ischemia, claudication. ??Waveforms suggestive of ??femoral-popliteal disease. REBECCA left leg 0.615 with toe index 0.23 , in the range of moderate ischemia, claudication. ??Waveforms suggestive of femoral-popliteal disease, infrageniculate disease. Recommend follow up in 1 year. ++++++++++++++++++++++++++++++++++++ FINDINGS: ++++++++++++++++++++++++++++++++++++ ++++++++++++++++++++++++++++++++++++ MEASUREMENTS: ++++++++++++++++++++++++++++++++++++ ?DOPPLER Left Dist Pop A ?? Dist Pop A PSV ??81.4 cm/s ? Left Dist EMERGENCY NURSE ?? Dist EMERGENCY NURSE PSV ?76.3 cm/s ? Left Dist MAKAYLA ?? Dist MAKAYLA PSV ?53.1 cm/s ? Right SLURRY PLANT OPERATOR ?? SLURRY PLANT OPERATOR PSV ?108 cm/s ? Right Dist Pop A ?? Dist Pop A PSV ??57.4 cm/s ? Right Dist EMERGENCY NURSE ?? Dist EMERGENCY NURSE PSV ?85.7 cm/s ? Right Dist MAKAYLA ?? Dist MAKAYLA PSV ?33.4 cm/s ?PRESSURES Right Brachial ?? Brach P ?200 mmHg ? Right Ankle DP ?? AnkleDP P ?138 mmHg ? Right Ankle PT ?? AnklePT P ?135 mmHg ? Right Great Toe ?? GreatToe P ?45 mmHg ? Right REBECCA PT ?? REBECCA PT ? 0.675 ? Right REBECCA DP ?? REBECCA DP ?0.69 ? Right TBI ?? TBI ?0.225 ? Left Ankle DP ?? AnkleDP P ?123 mmHg ? Left Ankle PT ?? AnklePT P ?0 mmHg ? Left Great Toe ?? GreatToe P ?46 mmHg ? Left REBECCA PT ?? REBECCA PT ? 0 ? Left REBECCA DP ?? REBECCA DP ? 0.615 ? Left TBI ?? TBI ? 0.23 ? Signed 05/11/2019 01:33 PM Spenser White M.D. Procedure Note Spenser White MD - 05/11/2019 ARTERIAL DOPPLER - REBECCA BILATERAL LOWER EXTREMITY VASCULAR LAB Pat.Name: IRIS GIL Pat.ID: [id number] .Date: 05/08/2019 Refer.MD: Rick Glez Exam Time: 10:48:00 AM Study Type:FRANCISCO VS Arterial Doppler Legs BRENDON Age: 11 1955,64Y Sex: FEMALE Sonogrphr: THAI Benjamin Pat. Stat.:Inpatient Room: [facility] History / Clinical: LLE non healing wound; PMH- breast CA, DM, HTN, Chronic LE wounds; BMI 38, cellulitis, Prior Rt REBECCA 0.72, toe index 0.49; Lt REBECCA 0.76, toe index 0.52 Procedures: Doppler waveforms, Digit PPG, Systolic Pressures w/REBECCA Race: B ++++++++++++++++++++++++++++++++++++ SUMMARY: ++++++++++++++++++++++++++++++++++++ Rom REBECCA Criteria: >1.30 = falsely elevated, calcified vessels; 1.00-1.29 = no signif ischemia at rest ; .80-.99 = mild PAD, asymptomatic; .50-.79 = moderate PAD, claudication; <.50 = severe PAD, rest pain; <.30 = critical PAD, necrosis, poor healing (Digits: DBI >.60 Normal; <.60 Abnormal) (Positive Stress eval: REBECCA decrease of >.20 or >20% pressure drop) Right leg: Common Femoral waveform is triphasic, high amplitude; Popliteal mono-biphasic, medium amplitude; Posterior Tibial biphasic, high amplitude with REBECCA 0.675 ; DP/Anterior Tibial biphasic, low amplitude with REBECCA 0.69 . Digit flow by PPG is low amplitude with DBI 0.225 . Left leg: Common Femoral waveform is triphasic, high amplitude; Popliteal biphasic, high amplitude; Posterior Tibial biphasic, medium amplitude with REBECCA 0 ; DP/Anterior Tibial biphasic, medium amplitude with REBECCA 0.615 . Digit flow by PPG is medium amplitude with DBI 0.23 . Patient refused BP in left arm due to PCP recommendation Compared to previous exam done 01/08/2019 , there is mild disease progression, on the left. CONCLUSION: REBECCA right leg 0.690, with toe index 0.225 , in the range of moderate ischemia, claudication. Waveforms suggestive of femoral-popliteal disease. REBECCA left leg 0.615 with toe index 0.23 , in the range of moderate ischemia, claudication. Waveforms suggestive of femoral-popliteal disease, infrageniculate disease. Recommend follow up in 1 year. ++++++++++++++++++++++++++++++++++++ FINDINGS: ++++++++++++++++++++++++++++++++++++ ++++++++++++++++++++++++++++++++++++ MEASUREMENTS: ++++++++++++++++++++++++++++++++++++ DOPPLER Left Dist Pop A Dist Pop A PSV 81.4 cm/s Left Dist EMERGENCY NURSE Dist EMERGENCY NURSE PSV 76.3 cm/s Left Dist MAKAYLA Dist MAKAYLA PSV 53.1 cm/s Right SLURRY PLANT OPERATOR SLURRY PLANT OPERATOR PSV 108 cm/s Right Dist Pop A Dist Pop A PSV 57.4 cm/s Right Dist EMERGENCY NURSE Dist EMERGENCY NURSE PSV 85.7 cm/s Right Dist MAKAYLA Dist MAKAYLA PSV 33.4 cm/s PRESSURES Right Brachial Brach P 200 mmHg Right Ankle DP AnkleDP P 138 mmHg Right Ankle PT AnklePT P 135 mmHg Right Great Toe GreatToe P 45 mmHg Right REBECCA PT REBECCA PT 0.675 Right REBECCA DP REBECCA DP 0.69 Right TBI TBI 0.225 Left Ankle DP AnkleDP P 123 mmHg Left Ankle PT AnklePT P 0 mmHg Left Great Toe GreatToe P 46 mmHg Left REBECCA PT REBECCA PT 0 Left REBECCA DP REBECCA DP 0.615 Left TBI TBI 0.23 Signed 05/11/2019 01:33 PM Spenser White M.D. Loraine Penaloza MD VASC Final Result * (ABNORMAL) POCT glucose (05/08/2019 6:20 AM [facility]) [facility] GLUCOSE POC 147(H) 70 - 99 mg/dL 05/08/2019 6:55 AM [facility] LAB ORDERS INTERFACE 05/08/2019 6:20 AM [facility] Loraine Penaloza MD POCT ORDERABLES - GILMA CE Final Result Performing Organization Address [facility] Co de Phone Number [facility] LAB ORDERS INTERFACE US * (ABNORMAL) HEMOGLOBIN, GLYCOSYLATED (05/08/2019 6:16 AM [facility]) HGB A1C 11.4(H) 4.2 - 6.3 % 05/08/2019 12:19 PM [facility] Comment: ADA GUIDELINES 2010 5.7 TO 6.4% INCREASED RISK OF DIABETES > OR = 6.5% CONSISTENT WITH DIABETES ESTIMATED AVG GLUCOSE 280 mg/dL 05/08/2019 12:19 PM [facility] 05/08/2019 6:16 AM [facility] us Loraine Penaloza MD LABORATORY Final Result Performing Organization Address [facility] Co de Phone Number [facility] [address] [place] [id number], [place] [phone] * (ABNORMAL) IRON SAT PANEL (IRON,IBC,%SAT) (05/08/2019 6:16 AM [facility]) IRON 43(L) 50.0 - 170.0 MCG/DL 05/08/2019 11:00 AM [facility] IRON BINDING CAPACITY 170(L) 250 - 450 MCG/DL 05/08/2019 11:00 AM [facility] IRON SATURATION 25 20 - 55 % 0 11:00 AM [facility] 05/08/2019 6:16 AM [facility] Loraine Penaloza MD LABORATORY Final Result [facility] [address] [place] [address], * VITAMIN B-12 (05/08/2019 6:16 AM [facility]) VITAMIN B12 S/P/B 1,199 254 - 1,320 PG/ML 05/08/2019 11:13 AM [facility] 05/08/2019 6:16 AM [facility] Loraine Penaloza MD LABORATORY Final Result Performing Organization Address City/[facility]/ZIP Co de Phone Number [facility] [address] [place] [address], * FOLIC ACID SERUM (05/08/2019 6:16 AM [facility]) FOLATE 4.3 3.1 - 17.5 NG/ML 05/08/2019 11:13 AM [facility] 05/08/2019 6:16 AM [facility] Loraine Penaloza MD LABORATORY Final Result Performing Organization Address City/[facility]/ZIP Co de Phone Number [facility] [address] [place] [phone], * (ABNORMAL) FERRITIN (05/08/2019 6:16 AM [facility]) FERRITIN 634.4(H) 8.0 - 388.0 NG/ML 05/08/2019 11:13 AM [facility] 05/08/2019 6:16 AM [facility] us Loraine Penaloza MD LABORATORY Final Result [facility] [address] [place] [address], * (ABNORMAL) CBC W/DIFF AUTOMATED (05/08/2019 6:16 AM [facility]) [facility] Signature WBC 5.1 4.5 - 11.0 x10'3/uL 05/08/2019 7:22 AM [facility] RBC 3.04(L) 4.20 - 5.40 x10'6/uL 05/08/2019 7:22 AM [facility] HGB 8.9(L) 12.0 - 16.0 G/DL 05/08/2019 7:22 AM [facility] HCT 27.4(L) 38.0 - 48.0 % 05/08/2019 7:22 AM [facility] MCV 90.1 80.0 - 94.0 FL 05/08/2019 7:22 AM [facility] MCH 29.3 27.0 - 31.0 PG 05/08/2019 7:22 AM [facility] MCHC 32.5 32.0 - 36.0 G/DL 05/08/2019 7:22 AM [facility] RDW 13.6 11.5 - 14.5 % 05/08/2019 7:22 AM [facility] PLT 283 130 - 400 x10'3/uL 05/08/2019 7:22 AM [facility] MPV 9.9 9.3 - 12.2 FL 05/08/2019 7:22 AM [facility] DIFFERENTIAL TYPE AUTOMATED DIFFERENTIAL 05/08/2019 7:22 AM [facility] NEUTROPHILS % 71.3 % 05/08/2019 7:22 AM [facility] LYMPHOCYTES % 16.2 % 05/08/2019 7:22 AM [facility] MONOCYTES % 7.9 % 05/08/2019 7:22 AM [facility] EOSINOPHILS 3.0 % 05/08/2019 7:22 AM [facility] BASOPHILS 0.6 % 05/08/2019 7:22 AM [facility] IMMATURE GRANS % 1.0 % 05/08/19 7:22 AM [facility] ABS. NEUTROPHILS TOTAL 3.62 1.80 - 7.70 x10'3/uL 05/08/2019 7:22 AM [facility] ABS. LYMPHOCYTES 0.82(L) 1.00 - 4.80 x10'3/uL 05/08/2019 7:22 AM [facility] ABS. MONOCYTES 0.40 0.24 - 0.86 x10'3/uL 05/08/2019 7:22 AM [facility] ABS. EOSINOPHILS 0.15 0.04 - 0.36 x10'3/uL 05/08/2019 7:22 AM [facility] ABS. BASOPHILS 0.03 0.01 - 0.08 x10'3/uL 05/08/2019 7:22 AM [facility] LAB ABS. IMMATURE GRANULOCYTES 0.05 0.00 - 0.49 x10'3/uL 05/08/2019 7:22 AM [facility] 05/08/2019 6:16 AM [facility] us Loraine Penaloza MD LABORATORY Final Result [facility] [address] [place] [address], [place] [phone] * (ABNORMAL) BASIC METABOLIC PANEL (05/08/2019 6:16 AM [facility]) GLUCOSE 135(H) 70 - 99 MG/DL 05/08/2019 11:00 AM [facility] BUN 13 7 - 18 MG/DL 05/08/2019 11:00 AM [facility] CREATININE S/P/B 0.84 0.55 - 1.02 MG/DL 05/08/2019 11:00 AM [facility] SODIUM S/P/B 140 136 - 145 MMOL/L 05/08/2019 11:00 AM [facility] POTASSIUM S/P/B 3.0(LL) 3.5 - 5.1 MMOL/L 05/08/2019 11:00 AM [facility] Comment: ER CALLED CRITICAL RESULTS AT [id number] TO AND READ BACK BY CARINA PATEL CHLORIDE S/P/B 107 100 - 108 MMOL/L 05/08/2019 11:00 AM [facility] CO2 30.2 21 - 32 MMOL/L 05/08/2019 11:00 AM [facility] CALCIUM S/P/B 7.6(L) 8.5 - 10.1 MG/DL 05/08/2019 11:00 AM [facility] ANION GAP 2.8(L) 5 - 15 MMOL/L 05/08/2019 11:00 AM [facility] BUN CREATININE RATIO 15.6 6 - 26 05/08/2019 11:00 AM [facility] EGFR NON-AFR. AMER. 73(L) >90 ML/MIN/1.7 3 M2 05/08/2019 11:00 AM [facility] EGFR AFR. AMER. 85(L) >90 ML/MIN/1.7 3 M2 05/08/2019 11:00 AM [facility] Comment: NOTE: eGFR is not calculated for patients <18 years of age. This is an estimated GFR (CKD EPI) and should not be used for calculating drug doses. 05/08/2019 6:16 AM [facility] us Loraine Penaloza MD LABORATORY Final Result [facility] [address] [place] [address], * CULTURE, WOUND, W/GRAM STAIN (05/08/2019 3:35 AM [facility]) SPEC DESCRIPTION LEG,LEFT 05/08/2019 3:28 AM [facility] SPECIAL REQUESTS NO SPECIAL REQUEST 05/08/2019 3:28 AM [facility] GRAM STAIN RESULT NO WHITE BLOOD CELLS SEEN 05/08/2019 2:32 PM [facility] GRAM STAIN RESULT RARE GRAM POSITIVE COCCI 05/08/2019 2:32 PM [facility] GRAM STAIN RESULT RARE GRAM POSITIVE RODS 05/08/2019 2:32 PM [facility] GRAM STAIN RESULT RARE GRAM NEGATIVE RODS 05/08/2019 2:32 PM [facility] CULTURE RESULT LIGHT GROWTH OF PSEUDOMONAS AERUGINOSA 05/12/2019 9:07 AM [facility] CULTURE RESULT LIGHT GROWTH OF NORMAL SKIN ALANA, SUSCEPTIBILITIES NOT ROUTINELY PERFORMED. 05/12/2019 9:07 AM [facility] CULTURE RESULT LIGHT GROWTH OF PSEUDOMONAS STUTZERI 05/12/2019 9:07 AM [facility] CULTURE RESULT LIGHT GROWTH OF MORGANELLA MORGANII SSP. MORGANII 05/12/2019 9:07 AM [facility] CULTURE RESULT NOTE: WOUND AND TISSUE CULTURES ARE ROUTINELY SCREENED FOR AEROBIC ORGANISMS ONLY. 05/12/2019 9:07 AM [facility] STRUCTURE OF LEFT LOWER LIMB / Unknown 05/08/2019 3:35 AM [facility] 05/08/2019 3:44 AM [facility] Narrative Organism Antibiotic Method Susceptibility Pseudomonas aeruginosa CEFTAZIDIME MICHAEL (VITEK) 4: Sensitive Pseudomonas aeruginosa GENTAMICIN MICHAEL (VITEK) <=1: Sensitive Pseudomonas aeruginosa LEVOFLOXACIN MICHAEL (VITEK) 1: Sensitive Pseudomonas aeruginosa PIPRACIL/TAZO MICHAEL (VITEK) 8: Sensitive Pseudomonas stutzeri CEFTRIAXONE MICHAEL (VITEK) <=1: Sensitive Pseudomonas stutzeri CEFTAZIDIME MICHAEL (VITEK) 8: Sensitive Pseudomonas stutzeri GENTAMICIN MICHAEL (VITEK) 4: Sensitive Pseudomonas stutzeri LEVOFLOXACIN MICHAEL (VITEK) 1: Sensitive Pseudomonas stutzeri PIPRACIL/TAZO MICHAEL (VITEK) <=4: Sensitive Pseudomonas stutzeri TRIMETH-SULFAMETH. MICHAEL (VITEK) >=320: Resistant Morganella morganii ssp. morganii AMPICILLIN MICHAEL (VITEK) >=32: Resistant Morganella morganii ssp. morganii AMPICILLIN/SULBACTAM MICHAEL (VITEK) >=32: Resistant Morganella morganii ssp. morganii CEFTRIAXONE MICHAEL (VITEK) <=1: Sensitive Morganella morganii ssp. morganii CEFTAZIDIME MICHAEL (VITEK) 16: Intermediate Morganella morganii ssp. morganii CEFAZOLIN MICHAEL (VITEK) >=64: Resistant Morganella morganii ssp. morganii GENTAMICIN MICHAEL (VITEK) <=1: Sensitive Morganella morganii ssp. morganii LEVOFLOXACIN MICHAEL (VITEK) <=0.12: Sensitive Morganella morganii ssp. morganii PIPRACIL/TAZO MICHAEL (VITEK) <=4: Sensitive Morganella morganii ssp. morganii TRIMETH-SULFAMETH. MICHAEL (VITEK) >=320: Resistant us Loraine Penaloza MD MICROBIOLOGY - GENERAL ORDERABLES Final Result [facility] [address] [place] [address], [place] [phone] * MRSA SCREENING (05/08/2019 3:15 AM [facility]) SPEC DESCRIPTION NASAL 05/08/2019 2:53 AM [facility] SPECIAL REQUESTS NO SPECIAL REQUEST 05/08/2019 2:53 AM [facility] CULTURE RESULT NO METHICILLIN RESISTANT STAPHYLOCOCCUS AUREUS ISOLATED 05/09/2019 6:53 AM [facility] SPECIMEN FROM INTERNAL NOSE / Unknown 05/08/2019 3:15 AM [facility] 05/08/2019 3:32 AM [facility] Loraine Penaloza MD MICROBIOLOGY - GENERAL ORDERABLES Final Result [facility] [address] [place] [id number], [place] [phone] * (ABNORMAL) POCT glucose (05/07/2019 11:32 PM [facility]) GLUCOSE POC 229(H) 70 - 99 mg/dL 05/07/2019 11:35 PM [facility] LAB ORDERS INTERFACE 05/07/2019 11:3 2 PM [facility] Loraine Penaloza MD POCT ORDERABLES - GILMA CE Final Result [facility] LAB ORDERS INTERFACE US * CULTURE URINE (05/07/2019 4:40 PM [employer]) SPEC DESCRIPTION URINE STRAIGHT CATH 05/07/2019 5:30 PM [facility] SPECIAL REQUESTS NO SPECIAL REQUEST 05/07/2019 5:30 PM [employer] CULTURE RESULT NO GROWTH 2 DAYS 05/09/2019 8:37 AM [employer] URINE SPECIMEN OBTAINED BY SINGLE CATHETERIZATION OF URINARY BLADDER / Unknown 05/07/2019 4:40 PM [employer] 05/07/2019 5:45 PM [employer] us Loraine Penaloza MD MICROBIOLOGY - GENERAL ORDERABLES Final Result [facility] [address] [place] [address], * (ABNORMAL) LACTIC ACID (05/07/2019 4:40 PM [employer]) LACTIC ACID VENOUS 3.8(H) 0.4 - 2.0 MMOL/L 05/07/2019 5:56 PM [employer] [facility] Comment: [facility] CALLED CRITICAL RESULTS AT [id number] TO AND READ BACK BY STEPHANIE CORBETT 05/07/2019 4:40 PM [employer] us [facility] Final Result Performing Organization Address [facility]/ZIP Co de Phone Number [facility] [address] [place] [address], [place] [phone] * (ABNORMAL) URINALYSIS WI REFLEX TO CULTURE (05/07/2019 4:40 PM [employer]) [facility] SPECIMEN TYPE URINE STRAIGHT CATH 05/07/2019 4:26 PM [employer] [facility] COLOR (U) DARK YELLOW 05/07/2019 5:16 PM [employer] [employer] TRANSPARENCY TURBID 05/07/2019 5:16 PM [facility] SPECIFIC GRAVITY (U) 1.015 1.001 - 1.030 05/07/2019 5:16 PM [employer] U PH 6.0 5.0 - 9.0 05/07/2019 5:16 PM [employer] [employer] LEUKOCYTES (U) LARGE(A) NEGATIVE 05/07/2019 5:16 PM [facility] NITRITES NEGATIVE NEGATIVE 05/07/2019 5:16 PM [employer] [employer] PROTEIN (U) 100(H) <30 MG/DL 05/07/2019 5:16 PM [facility] URINE GLUCOSE >500(A) NEGATIVE MG/DL 05/07/2019 5:16 PM [facility] KETONES MG/DL (U) NEGATIVE NEGATIVE MG/DL 05/07/2019 5:16 PM [facility] UROBILINOGEN NEGATIVE NEGATIVE MG/DL 05/07/2019 5:16 PM [facility] BILIRUBIN (U) NEGATIVE NEGATIVE MG/DL 05/07/2019 5:16 PM [facility] BLOOD (U) LARGE(A) NEGATIVE 05/07/2019 5:16 PM [facility] CULTURE & SENSITIVITY INDICATED? SPECIMEN SETUP FOR CULTURE 05/07/2019 5:16 PM [facility] WBC/HPF >100(H) <6 /HPF 05/07/2019 5:16 PM [facility] WBC CLUMPS PRESENT 05/07/2019 5:16 PM [facility] RBC/HPF >100(H) <6 /HPF 05/07/2019 5:16 PM [facility] BUDDING YEAST MANY(A) NONE /HPF 05/07/2019 5:16 PM [facility] URINE, STRAIGHT CATH 05/07/2019 4:40 PM [facility] us Julian GONZALEZ URINE ORDERABLES Final Result [facility] [address] [place] [address], [place] [phone] * (ABNORMAL) LACTIC ACID (05/07/2019 2:17 PM [facility]) LACTIC ACID VENOUS 3.2(H) 0.4 - 2.0 MMOL/L 05/07/2019 4:06 PM [facility] Comment: AGATHA CALLED CRITICAL RESULTS AT [id number] TO AND READ BACK BY STEPHANIE CORBETT 05/07/2019 2:17 PM [facility] Julian GONZALEZ LABORATORY Final Result [facility] [address] [place] [address], * POCT KETONES (05/07/2019 12:59 PM [facility]) KETONES S/P/B 0.1 0.0 - 0.5 mmol/L 05/07/2019 1:01 PM [facility] ORDERS INTERFACE 05/07/2019 12:5 9 PM [facility] Don Branham MD POINT OF CARE TEST ORDERABLES Final Result Performing Organization Address City/[facility]/ZIP Co de Phone Number [facility] ORDERS INTERFACE [place] * (ABNORMAL) LACTIC ACID (05/07/2019 12:32 PM [facility]) LACTIC ACID VENOUS 3.9(H) 0.4 - 2.0 MMOL/L 05/07/2019 1:52 PM [facility] 05/07/2019 12:3 2 PM [facility] Julian GONZALEZ LABORATORY Final Result Performing Organization Address City/[facility]/ZIP Co de Phone Number [facility] [address] [place] [address], [place] [phone] * MAGNESIUM (05/07/2019 12:32 PM [facility]) MAGNESIUM 1.8 1.8 - 2.4 MG/DL 05/07/2019 1:32 PM [facility] 05/07/2019 12:3 2 PM [facility] Julian GONZALEZ LABORATORY Final Result [facility] [address] [place] [address], * (ABNORMAL) COMPREHENSIVE METABOLIC PANEL (05/07/2019 12:32 PM [facility]) GLUCOSE 353(H) 70 - 99 MG/DL 05/07/2019 1:32 PM [facility] BUN 13 7 - 18 MG/DL 05/07/2019 1:32 PM [facility] CREATININE S/P/B 1.09(H) 0.55 - 1.02 MG/DL 05/07/2019 1:32 PM [facility] SODIUM S/P/B 135(L) 136 - 145 MMOL/L 05/07/2019 1:32 PM [facility] POTASSIUM S/P/B 3.0(LL) 3.5 - 5.1 MMOL/L 05/07/2019 1:32 PM [facility] Comment:AGATHA CALLED CRITICAL RESULTS AT [id number] TO AND READ BACK BY BASIA Davis CHLORIDE S/P/B 98(L) 100 - 108 MMOL/L 05/07/2019 1:32 PM [facility] CO2 29.7 21 - 32 MMOL/L 05/07/2019 1:32 PM [facility] CALCIUM S/P/B 8.5 8.5 - 10.1 MG/DL 05/07/2019 1:32 PM [facility] BILIRUBIN TOTAL S/P/B 0.8 0.2 - 1.2 MG/DL 05/07/2019 1:32 PM [facility] TOTAL PROTEIN S/P/B 7.8 6.4 - 8.2 G/DL 05/07/2019 1:32 PM [facility] ALBUMIN S/P/B 3.1(L) 3.4 - 5.0 G/DL 05/07/2019 1:32 PM [facility] AST 32 15 - 37 U/L 05/07/2019 1:32 PM [facility] ALT 28 14 - 55 U/L 05/07/2019 1:32 PM [facility] ALKALINE PHOSPHATASE S/P/B 58 50 - 136 U/L 05/07/2019 1:32 PM [facility] ANION GAP 7.3 5 - 15 MMOL/L 05/07/2019 1:32 PM [facility] BUN CREATININE RATIO 11.9 6 - 26 05/07/2019 1:32 PM [facility] A/G RATIO 0.7(L) 1.0 - 2.0 RATIO 05/07/2019 1:32 PM [facility] EGFR NON-AFR. AMER. 54(L) >90 ML/MIN/1.7 3 M2 05/07/2019 1:32 PM [facility] EGFR AFR. AMER. 62(L) >90 ML/MIN/1.7 3 M2 05/07/2019 1:32 PM [facility] Comment: NOTE: eGFR is not calculated for patients <18 years of age. This is an estimated GFR (CKD EPI) and should not be used for calculating drug doses. 05/07/2019 12:3 2 PM [facility] us Julian GONZALEZ LABORATORY Final Result [facility] [address] [place] [address], [place] [phone] * (ABNORMAL) CBC W/DIFF AUTOMATED (05/07/2019 12:32 PM [facility]) [facility] Signature WBC 6.8 4.5 - 11.0 x10'3/uL 05/07/2019 12:49 PM [facility] RBC 3.38(L) 4.20 - 5.40 x10'6/uL 05/07/2019 12:49 PM [facility] HGB 9.9(L) 12.0 - 16.0 G/DL 05/07/2019 12:49 PM [facility] HCT 30.4(L) 38.0 - 48.0 % 05/07/2019 12:49 PM [facility] MCV 89.9 81.0 - 99.0 FL 05/07/2019 12:49 PM [facility] MCH 29.3 27.0 - 31.0 PG 05/07/2019 12:49 PM [facility] MCHC 32.6 32.0 - 36.0 G/DL 05/07/2019 12:49 PM [facility] RDW 13.6 11.5 - 14.5 % 05/07/2019 12:49 PM [facility] PLT 314 130 - 400 x10'3/uL 05/07/2019 12:49 PM [facility] MPV 9.8 9.3 - 12.2 FL 05/07/2019 12:49 PM [facility] DIFFERENTIAL TYPE AUTOMATED DIFFERENTIAL 05/07/2019 12:49 PM [facility] NEUTROPHILS % 74.0 % 05/07/2019 12:49 PM [facility] LYMPHOCYTES % 14.8 % 05/07/2019 12:49 PM [facility] MONOCYTES % 6.9 % 05/07/2019 12:49 PM [facility] EOSINOPHILS 1.9 % 05/07/2019 12:49 PM [facility] BASOPHILS 0.6 % 05/07/2019 12:49 PM [facility] IMMATURE GRANS % 1.8 % 05/07/19 12:49 PM [facility] ABS. NEUTROPHILS TOTAL 5.07 1.80 - 7.70 x10'3/uL 05/07/2019 12:49 PM [facility] ABS. LYMPHOCYTES 1.01 1.00 - 4.80 x10'3/uL 05/07/2019 12:49 PM [facility] ABS. MONOCYTES 0.47 0.24 - 0.86 x10'3/uL 05/07/2019 12:49 PM [facility] ABS. EOSINOPHILS 0.13 0.04 - 0.36 x10'3/uL 05/07/2019 12:49 PM [facility] ABS. BASOPHILS 0.04 0.01 - 0.08 x10'3/uL 05/07/2019 12:49 PM [facility] ABS. IMMATURE GRANULOCYTES 0.12 0.00 - 0.49 x10'3/uL 05/07/2019 12:49 PM [facility] 05/07/2019 12:3 2 PM [facility] us Julian GONZALEZ LABORATORY Final Result [facility] [address] [place] [address], * CULTURE, BACTERIA, BLOOD (05/07/2019 12:31 PM [facility]) SPEC DESCRIPTION BLOOD 05/07/2019 12:29 PM [facility] SPECIAL REQUESTS NO SPECIAL REQUEST 05/07/2019 12:29 PM [facility] CULTURE RESULT NO GROWTH 5 DAYS 05/12/2019 10:36 AM [facility] BLOOD SPECIMEN OBTAINED FOR BLOOD CULTURE / Unknown 05/07/2019 12:31 PM [facility] 05/07/2019 12:32 PM [facility] Julian GONZALEZ MICROBIOLOGY - GENERAL ORDERA BLES Final Result [facility] [address] [place] [address], [place] [phone] * CULTURE, BACTERIA, BLOOD (05/07/2019 12:17 PM [facility]) Pathologist [facility] SPEC DESCRIPTION BLOOD 05/07/2019 12:29 PM [facility] SPECIAL REQUESTS NO SPECIAL REQUEST 05/07/2019 12:29 PM [facility] CULTURE RESULT NO GROWTH 5 DAYS 05/12/2019 10:36 AM [facility] BLOOD SPECIMEN OBTAINED FOR BLOOD CULTURE / Unknown 05/07/2019 12:17 PM [facility] 05/07/2019 3:54 PM [facility] Julian GONZALEZ MICROBIOLOGY - GENERAL ORDERA BLES Final Result [facility] [address] [place] [address], [place] [phone] * (ABNORMAL) POCT glucose (05/07/2019 11:50 AM [facility]) GLUCOSE POC 326(H) 70 - 99 mg/dL 05/07/2019 11:56 AM [facility] ORDERS INTERFACE 05/07/2019 11:5 0 AM [facility] us Attending Physician Emergency MD POCT ORDERABLES - DEVICE Final Result [facility] ORDERS INTERFACE documented in this encounter Visit Diagnoses Diagnosis Sepsis ([facility])- Primary Weakness Other malaise and fatigue Hyperglycemia Other abnormal glucose Noncompliance Personal history of noncompliance with medical treatment, presenting hazards to health Decubitus skin ulcer Pressure ulcer, unspecified site Ulcer of lower limb, left, limited to breakdown of skin ([facility]) documented in this encounter Administered Medications Inactive Administered Medications - up to 3 most recent administrations Medication Order MAR Action Action Date Dose Rate Site acetaminophen (TYLENOL) tablet 650 mg 650 mg, Oral, Every 4 hours PRN, Fever, Discomfort, Starting on Mon05/07/19 at 1723, Until Mon05/17/19 at 1505, For temperature greater than 38.6 C (101.5 F) Given 05/16/2019 4:06 PM [facility] 650 mg Given 05/15/2019 12:16 PM [facility] 650 mg Given 05/14/2019 4:30 PM [facility] 650 mg atorvastatin (LIPITOR) tablet 80 mg 80 mg, Oral, Daily, First dose on Mon05/08/19 at 0900, Until DiscontinuedIndications:Hypercholesterolemia Given 05/17/2019 10:0 5 AM [facility] 80 mg Given 05/16/2019 8:53 AM [facility] 80 mg Given 05/15/2019 9:51 AM [facility] 80 mg cefTAZidime (FORTAZ) 2 g in sodium chloride 0.9 % 50 mL IVPB 2 g, Intravenous, at 100 mL/hr, Q8H, First dose (after last reorder) on 05/11/19 at 0000, Until Discontinued New Bag 05/13/2019 8:20 AM [facility] 2 g 100 mL/hr New Bag 05/13/2019 12:10 AM [facility] 2 g 100 mL/hr New Bag 05/12/2019 5:46 PM [facility] 2 g 100 mL/hr cefTRIAXone (ROCEPHIN) 2 g in sodium chloride 0.9 % 50 mL IVPB 2 g, Intravenous, at 100 mL/hr, Every 24 hours, First dose on Mon05/07/19 at 1730, Until Discontinued New Bag 05/10/2019 4:35 PM [facility] 2 g 100 mL /hr New 05/09/2019 6:07 PM [facility] 2 g 100 mL/hr 05/08/2019 5:29 PM [facility] 2 g 100 mL/hr chlorthalidone (HYGROTEN) tablet 25 mg 25 mg, Oral, Daily, First dose on Mon05/13/19 at 1200, Until Discontinued Given 05/17/2019 10:04 AM [facility] 25 mg Given 05/16/2019 8:53 AM [facility] 25 mg Given 05/15/2019 9:51 AM [facility] 25 mg collagenase (SANTYL) ointment Topical, Daily, First dose on Mon05/08/19 at 1615, Until Discontinued, Cleanse wound with saline and pat dry. Apply nickel-depth layer of santyl to wound bed, cover with dry foam. Change daily and/or as needed for loosened/soiled bandage. Given 05/17/2019 10:12 AM [facility] Given 05/16/2019 11:45 AM [facility] Given 05/15/2019 12:25 PM [facility] doxycycline hyclate (VIBRAMYCIN) 100 mg in sodium chloride 0.9 % 100 mL IVPB 100 mg, Intravenous, at 100 mL/hr, Every 12 hours, First dose on Mon05/09/19 at 0900, Until Discontinued New 05/13/2019 5:20 AM [facility] 100 m g 100 mL/hr 05/12/2019 7:03 PM [facility] 100 mg 100 mL/hr 05/12/2019 5:37 AM [facility] 100 mg 100 mL/hr enoxaparin (LOVENOX) 40 MG/0.4ML syringe 40 mg 40 mg, Subcutaneous, Every 24 hours, First dose on Mon05/08/19 at 0900, Until Discontinued, Administer by deep SubQ injection alternating between the left or right anterolateral and left or right posterolateral abdominal wall. Given 05/17/2019 10:03 AM [facility] 40 mg Right Upper Abdomen Given 05/16/2019 8:52 AM [facility] 40 mg Ri ght Lower Abdomen Given 05/15/2019 9:51 AM [facility] 40 mg Ri ght Lower Abdomen gabapentin (NEURONTIN) capsule 300 mg 300 mg, Oral, 3 times daily, First dose on Mon05/13/19 at 1745, Until Discontinued Given 05/17/2019 10:05 AM [facility] 300 mg Given 05/16/2019 9:14 PM [facility] 300 mg Given 05/16/2019 4:06 PM [facility] 300 mg heparin flush 100 unit/mL injection Code/trauma/sedation medication, Starting on Mon05/09/19 at 1506, Until Mon05/09/19 at 1506 Given 05/09/2019 3:06 PM [facility] 500 Units insulin lispro (HUMALOG) injection 0-16 Units 0-16 Units, Subcutaneous, 3 times daily before meals, First dose on Mon05/08/19 at 0700, Until Discontinued, Blood Glucose (USUAL Dosing): [Less than 70:? Initiate Hypoglycemia Standing Orders] [71-140: ? 0 units] [141-180:? 4 units] [181-220:? 6 units] [221-260:? 8 units] [261-300:? 10 units] [301-350:? 12 units] [351-400:? 14 units] [Greater than 400:? 16 units and Call Physician] Given 05/17/2019 10:02 AM [facility] 10 Units Right Lower Abdomen Given 05/16/2019 5:59 PM [facility] 6 Units Le ft Lower Abdomen Given 05/16/2019 11:55 AM [facility] 6 Units R ight Arm insulin lispro (HUMALOG) injection 0-8 Units 0-8 Units, Subcutaneous, Nightly at bedtime, First dose on Mon05/07/19 at 2245, Until Discontinued, Blood Glucose (USUAL Dosing): [Less than 70:? Initiate Hypoglycemia Standing Orders] [71-180:? 0 units] [181-220:? 3 units] [221-260:? 4 units] [261-300:? 5 units] [301-350:? 6 units] [351-400:? 7 units] [Greater than 400:? 8 units and Call Physician] Given 05/16/2019 9:14 PM [facility] 7 Units Left Lower Abdomen Given 05/15/2019 9:15 PM [facility] 3 Units Ri ght Upper Abdomen Given 05/14/2019 9:51 PM [facility] 3 Units Ri ght Arm insulin regular (NOVOLIN R/HUMULIN R) injection 5 Units 5 Units, Intravenous, Once, 1 dose, On Mon05/07/19 at 1500, For sliding scale, activate Sliding Scale Insulin order set. Given 05/07/2019 3:47 PM [facility] 5 Units levofloxacin (LEVAQUIN) tablet 500 mg 500 mg, Oral, Daily, 10 doses, First dose on Mon05/13/19 at 1015, Last dose on Mon05/22/19 at 0900 Given 05/17/2019 10:11 AM [facility] 500 mg Given 05/16/2019 8:53 AM [facility] 500 mg Given 05/15/2019 9:51 AM [facility] 500 mg levothyroxine (SYNTHROID) tablet 100 mcg 100 mcg, Oral, Daily (levothyroxine), First dose on Mon05/08/19 at 0600, Until Discontinued, Avoid iron, calcium, and antacids within 4 hours of administration. Given 05/17/2019 6:04 AM CS T 100 mcg Given 05/16/2019 5:32 AM [facility] 100 mcg Given 05/15/2019 6:30 AM [facility] 100 mcg losartan (COZAAR) tablet 100 mg 100 mg, Oral, Daily, First dose (after last reorder) on Mon05/08/19 at 0900, Until Discontinued, Therapeutic interchange for valsartan 160mg per P&T ProtocolIndications:Hypertension,heart failure Given 05/17/2019 10:05 AM [facility] 100 mg Given 05/16/2019 8:53 AM [facility] 100 mg Given 05/15/2019 9:51 AM [facility] 100 mg polyethylene glycol (GLYCOLAX) packet 17 g 17 g, Oral, Daily as needed, Constipation, Starting on Mon05/07/19 at 2219, Until Mon05/17/19 at 1505, If both senna and polyethylene glycol are ordered, use 1st; if no response by next dosing interval, go to next option. Given 05/16/2019 11:45 AM [facility] 17 g Given 05/13/2019 5:30 AM [facility] 17 g potassium chloride CR (K-TAB) tablet 20 mEq 20 mEq, Oral, Once, 1 dose, On Mon05/07/19 at 1815, Do not break, chew, or crush. Given 05/07/2019 6:16 PM [facility] 20 mEq potassium chloride CR (K-TAB) tablet 40 mEq 40 mEq, Oral, Once, 1 dose, On Mon05/07/19 at 1345, Do not break, chew, or crush. Given 05/07/2019 3:45 PM [facility] 40 mEq potassium chloride CR (K-TAB) tablet 40 mEq 40 mEq, Oral, Once, 1 dose, On Mon05/08/19 at 1430, Do not break, chew, or crush. Given 05/08/2019 2:41 PM [facility] 40 mEq potassium chloride CR (K-TAB) tablet 40 mEq 40 mEq, Oral, Once, 1 dose, On Chari 05/09/19 at 1100, Do not break, chew, or crush. Given 05/09/2019 11:26 AM [facility] 40 mEq sodium chloride 0.9% bolus infusion SOLN 1,000 mL 1,000 mL, Intravenous, Administer over 15 Minutes, Once, 1 dose, On Mon05/07/19 at 1500 New 05/07/2019 3:45 PM [facility] 1,000 mLs sodium chloride 0.9% infusion at 100 mL/hr, Intravenous, Continuous, Starting on Mon05/07/19 at 1730, Until 05/11/19 at 1448 New 05/10/2019 11:21 PM [facility] 100 mL/hr New 05/10/2019 1:17 PM [facility] 100 mL/hr New 05/10/2019 2:34 AM [facility] 100 mL/hr sodium chloride 0.9% infusion at 10 mL/hr, Intravenous, Continuous, Starting on Mon05/15/19 at 0845, Until Mon05/16/19 at 0844, Infuse at TKO rate New 05/15/2019 12:14 PM [facility] 250 mLs 10 mL/hr vancomycin (VANCOCIN) 1,250 mg in sodium chloride 0.9 % 250 mL IVPB 1,250 mg, Intravenous, at 175 mL/hr, Once, 1 dose, On Mon05/07/19 at 1815 New 05/07/2019 6:53 PM [facility] 1,250 mg 175 mL/hr vancomycin (VANCOCIN) 1,500 mg in sodium chloride 0.9 % 500 mL IVPB 1,500 mg, Intravenous, at 257.5 mL/hr, Every 24 hours, First dose (after last reorder) on Mon05/08/19 at 1900, Until Discontinued 05/08/2019 6:33 PM [facility] 1,500 mg 257.5 mL/hr documented in this encounter Active and Recently Administered Medications Times are shown in [facility]. Scheduled Medication Order 05/15/2019 05/16/2019 05/17/2019 atorvastatin (LIPITOR) tablet 80 mg 80 mg, Oral, Daily, First dose on Mon05/08/19 at 0900, Until Discontinued 950 (Given - Provider: Liset Conde RN) 0853 (Given - Provider: Liset Conde RN) 1005 (Given - Provider: India Fournier RN) chlorthalidone (HYGROTEN) tablet 25 mg 25 mg, Oral, Daily, First dose on Mon05/13/19 at 1200, Until Discontinued 950 (Given - Provider: Liset Conde RN) 0853 (Given - Provider: Liset Conde RN) 1004 (Given - Provider: India Fournier RN) collagenase (SANTYL) ointment Topical, Daily, First dose on Mon05/08/19 at 1615, Until Discontinued, Cleanse wound with saline and pat dry. Apply nickel-depth layer of santyl to wound bed, cover with dry foam. Change daily and/or as needed for loosened/soiled bandage. 1225 (Given - Provider: Liset Conde RN) 1145 (Given - Provider: Liset Conde RN) 1012 (Given - Provider: India Fournier RN) enoxaparin (LOVENOX) 40 MG/0.4ML syringe 40 mg(Linked Group 1) 40 mg, Subcutaneous, Every 24 hours, First dose on Mon05/08/19 at 0900, Until Discontinued, Administer by deep SubQ injection alternating between the left or right anterolateral and left or right posterolateral abdominal wall. 0951 (Given - Provider: Liset Conde RN) 0852 (Given - Provider: Liset Conde RN) 1003 (Given - Provider: India Fournier RN) gabapentin (NEURONTIN) capsule 300 mg 300 mg, Oral, 3 times daily, First dose on Mon05/13/19 at 1745, Until Discontinued 950 (Given - Provider: Liset Conde RN)1646 (Given - Provider: Liset Conde RN)2115 (Given - Provider: Jazmine Hitchcock RN) 0853 (Given - Provider: Liset Conde RN)1606 (Given - Provider: Liset Conde RN)2114 (Given - Provider: Felicia Pierson RN) 1005 (Given - Provider: India Fournier, SPENCER) insulin lispro (HUMALOG) injection 0-16 Units(Linked Group 2) 0-16 Units, Subcutaneous, 3 times daily before meals, First dose on Mon05/08/19 at 0700, Until Discontinued, Blood Glucose (USUAL Dosing): [Less than 70:? Initiate Hypoglycemia Standing Orders] [71-140: ? 0 units] [141-180:? 4 units] [181-220:? 6 units] [221-260:? 8 units] [261-300:? 10 units] [301-350:? 12 units] [351-400:? 14 units] [Greater than 400:? 16 units and Call Physician] 0952 (Given - Provider: Liset Conde RN)1149 (Given - Provider: Liset Conde RN)1647 (Not Given - Provider: Liset Conde RN - Reason: Order parameters not met) 0853 (Given - Provider: Liset Conde RN)1155 (Given - Provider: Liset Conde RN)1759 (Given - Provider: Liset Conde RN) 1002 (Given - Provider: India Fournier, SPENCER)1100 (Canceled Entry - Provider: Automatic Discharge Provider - Comment: Automatically canceled at discontinue of medication order) insulin lispro (HUMALOG) injection 0-8 Units(Linked Group 2) 0-8 Units, Subcutaneous, Nightly at bedtime, First dose on Mon05/07/19 at 2245, Until Discontinued, Blood Glucose (USUAL Dosing): [Less than 70:? Initiate Hypoglycemia Standing Orders] [71-180:? 0 units] [181-220:? 3 units] [221-260:? 4 units] [261-300:? 5 units] [301-350:? 6 units] [351-400:? 7 units] [Greater than 400:? 8 units and Call Physician] 2114 (Given - Provider: Jazmine Hitchcock RN) 2113 (Given - Provider: Felicia Pierson RN - Comment: Glucose was 352 at 2055.) levofloxacin (LEVAQUIN) tablet 500 mg 500 mg, Oral, Daily, 10 doses, First dose on Mon05/13/19 at 1015, Last dose on Mon05/22/19 at 0900 0951 (Given - Provider: Liset Conde RN) 0853 (Given - Provider: Liset Conde RN) 1011 (Given - Provider: India Fournier, SPENCER) levothyroxine (SYNTHROID) tablet 100 mcg 100 mcg, Oral, Daily (levothyroxine), First dose on Mon05/08/19 at 0600, Until Discontinued, Avoid iron, calcium, and antacids within 4 hours of administration. 0630 (Given - Provider: Felicia Pierson RN) 0532 (Given - Provider: Jazmine Hitchcock RN) 0604 (Given - Provider: Felicia Pierson RN) losartan (COZAAR) tablet 100 mg 100 mg, Oral, Daily, First dose (after last reorder) on Mon05/08/19 at 0900, Until Discontinued, Therapeutic interchange for valsartan 160mg per P&T Protocol 0951 (Given - Provider: Liset Conde RN) 0853 (Given - Provider: Liset Conde RN) 1005 (Given - Provider: India Fournier, SPENCER) Continuous Medication Order 05/15/2019 05/16/2019 05/17/2019 sodium chloride 0.9% infusion () at 10 mL/hr, Intravenous, Continuous, Starting on Mon05/15/19 at 0845, Until Chari 05/16/19 at 0844, Infuse at TKO rate 1214 (New Bag - Provider: Liset Conde, SPENCER) PRN Medication Order 05/15/2019 05/16/2019 05/17/2019 acetaminophen (TYLENOL) tablet 650 mg 650 mg, Oral, Every 4 hours PRN, Fever, Discomfort, Starting on Mon05/07/19 at 1723, Until Mon05/17/19 at 1505, For temperature greater than 38.6 C (101.5 F) 1216 (Given - Provider: Liset Conde RN) 1606 (Given - Provider: Liset Conde, SPENCER) hydrALAZINE (APRESOLINE) injection 10 mg 10 mg, Intravenous, Every 6 hours PRN, SBP >180, Starting on Mon05/07/19 at 2219, Until Mon05/17/19 at 1505, Monitor HR and BP before dose and 15 min after IV dose. For IV push give over 1-2 minutes=5mg/min. mhcumxrod-gxsxcstq-yexrrol cone ([place] MAXIMUM STRENGTH) 4613-1484-638 mg/30mL suspension 10 mL, Oral, Every 4 hours PRN, Indigestion, Heartburn, Starting on Mon05/07/19 at 2219, Until Mon05/17/19 at 1505, Shake Well ondansetron (ZOFRAN) injection 4 mg 4 mg, Intravenous, Every 6 hours PRN, Nausea, Vomiting, Starting on Mon05/07/19 at 2219, Until Mon05/17/19 at 1505, IV push over 2-5 minutes. polyethylene glycol (GLYCOLAX) packet 17 g 17 g, Oral, Daily as needed, Constipation, Starting on Mon05/07/19 at 2219, Until Mon05/17/19 at 1505, If both senna and polyethylene glycol are ordered, use 1st; if no response by next dosing interval, go to next option. 1145 (Given - Provider: Liset Conde RN) traMADol (ULTRAM) tablet 50 mg 50 mg, Oral, Every 4 hours PRN, Moderate pain (Scale 4 - 7), Severe pain (Scale 8 - 10), Starting on Mon05/07/19 at 2219, Until Mon05/17/19 at 1505 Linked Groups Order Group 1: enoxaparin (LOVENOX) 40 MG/0.4ML syringe 40 mgJump to med 40 mg, Subcutaneous, Every 24 hours, First dose on Mon05/08/19 at 0900, Until Discontinued, Administer by deep SubQ injection alternating between the left or right anterolateral and left or right posterolateral abdominal wall. And Place sequential compression device (COMPLETED) Routine, Once, On Mon05/07/19 at 2220, For 1 occurrence And Intermittent Pneumatic Compression Device Applied (COMPLETED) And Assess Sequential Compression Device (Assess skin at a minimum of every shift) (CANCELED) Routine, Every shift, First occurrence on Mon05/07/19 at 2220 And Maintain Sequential Compression Device (COMPLETED) Routine, Daily, First occurrence on Mon05/08/19 at 0600 And High Risk for VTE (COMPLETED) Group 2: insulin lispro (HUMALOG) injection 0-16 UnitsJump to med 0-16 Units, Subcutaneous, 3 times daily before meals, First dose on Mon05/08/19 at 0700, Until Discontinued, Blood Glucose (USUAL [...] Subcutaneous, Nightly at bedtime, First dose on Mon05/07/19 at 2245, Until Discontinued, Blood Glucose (USUAL Dosing): [Less than 70:? Initiate Hypoglycemia Standing Orders] [71-180:? 0 units] [181-220:? 3 units] [221-260:? 4 units] [261-300:? 5 units] [301-350:? 6 units] [351-400:? 7 units] [Greater than 400:? 8 units and Call Physician] documented in this encounter Care Teams Political Science Research Assistant Relationship Specialty Start Date End Date Rick Glez MD [address] [place] [address] PCP - General INTERNAL MEDICINE 02/10/19 05/09/19 Don Branham MD [address] [place] [address] PCP - General EMERGENCY MEDICINE 05/10/19 Damon Swanson MD INTERNAL MEDICINE 12/10/18 documented as of this encounter
--- OUTSIDE RECORDS SUMMARY | 2024-02-26 21:25 | XMS_ITS | Encounter Summary ---
Author Organization [facility] Address [address] [place] [address]. [place] [address] [place] [address] Care Team Providers Care Associate Veterinarian Name Role Phone Damon Swanson MD Unavailable [phone] Don Branham MD Primary Care Provider [phone] Reason for Referral * (Routine) - Closed Specialty Diagnoses / Procedures Referred By Leif t Referred To Contact Procedures Consult to wound care Gladys Padilla MD [address] [place] [address] Phone: tel: fax: Referral ID Status Reason Start Date Expiration Date Visits Re quested Visits Authorized [id number] Closed 06/05/2019 07/05/2020 1 1 * (Routine) - Canceled Specialty Diagnoses / Procedures Referred By Contza t Referred To Contact Procedures PT eval and treat Gladys Padilla MD [address] [place] [address] Phone: tel: fax: Referral ID Status Reason Start Date Expiration Date V isits Requested Visits Authorized [id number] Canceled 06/05/2019 07/05/2020 1 1 * Imaging (Emergency) - Closed Specialty Diagnoses / Procedures Referred By Contza t Referred To Contact RADIOLOGY Procedures CT HEAD WO CON Peterson Mcmillan PA 1 [place] [address] Phone: tel: fax: Referral ID Status Reason Start Date Expiration Date Visits Re quested Visits Authorized [id number] Closed 06/05/2019 07/05/2020 1 1 Reason for Visit * Reason Comments Weakness Hyperglycemia * Auth/Cert Specialty Diagnoses / Procedures Referred By Contac t Referred To Contact Diagnoses UTI (urinary tract infection) Weakness Hyperglycemia Hyperglycemia Referral ID Status Reason Start Date Expiration Date Visits Re quested Visits Authorized [id number] 1 1 Encounter Details Date Type Department Care Team (Late st Contact Info) Description 06/05/2019 1:41 PM CDT - 06/07/2019 6:48 PM CDT Emergency [facility] [place] [address] Peterson Mcmillan PA 1 [place], [place] [id number] Gladys Padilla MD 1 [place], [place] [address] Loraine Ordoñez MD 1 [place], [place] [id number] [phone] (Work) Weakness; Hyperglycemia Discharge Disposition: Home with Home Health Care Social History Tobacco Use Types Packs/Day [...] Sign Reading Time Taken Comments Blood Pressure 120/94 06/07/2019 11:11 AM CDT Pulse 98 06/07/2019 11:11 AM CDT Temperature 36.4 ??C (97.6 ??F) 06/07/2019 11:11 AM C DT Respiratory Rate 18 06/07/2019 11:11 AM CDT Oxygen Saturation 98% 06/07/2019 11:11 AM CDT Inhaled Oxygen Concentration - - Weight 88.5 kg (195 lb 1.7 oz) 06/07/2019 3:20 A M CDT Height 157.5 cm (5' 2 ) 06/05/2019 8:02 PM CDT Body Mass Index 35.69 06/05/2019 8:02 PM CDT documented in this encounter Functional [...] PM CDT Erma Raya RN Active * Because of a physical, mental, or emotional condition, do you have difficulty doing errands alone such as visiting a doctor's office or shopping? Answer Date of Assessment Author Status Yes 06/05/2019 6:50 PM CDT Erma Raya RN Active documented as of this encounter Mental Status * Question Answer Entry Date Author Status Because of a physical, mental, or emotional condition, do you have serious difficulty concentrating, remembering, or making decisions? Yes 06/05/2019 6:50 PM CDT Erma Raya RN Active * Because of a physical, mental, or emotional condition, do you have serious difficulty concentrating, remembering, or making decisions? Answer Entry Date Author Status Yes 06/05/2019 6:50 PM CDT Erma Raya RN Active documented in this encounter Discharge Summaries * Loraine Ordoñez MD - 06/07/2019 10:35 AM CDT Hospitalist Discharge Summary Patient ID: Iris Pascual. female. 1955. Admit date: 06/05/2019 1:41 PM Discharge date: 06/07/2019 6:48 PM Admitting Physician: Gladys Padilla MD Primary Care Physician: Don Branham MD Discharge Physician: LORAINE ORDOÑEZ MD Primary Diagnoses: Generalized weakness Admission Condition: fair Discharged Condition: Stable Code Status: Prior Chief Complaint: Chief Complaint Patient presents with ??? Weakness ??? Hyperglycemia Reason for hospitalization: generalized weakness HPI per admitting physician: Iris Pascual is a 64-year-old female with past medical history significant for breast cancer,DM, HTN, ED, neuropathy, hypothyroid who was just discharged from our hospital on 05/16, hospitalizedwith sepsis, distal LLE (stage III) ulcer,UTI, stage III pressure ulcer bilateral buttoks. At that time wound culture grew Pseudomonas and Morganella, treated with Fortaz, continued on Levaquin as outpatient. Patient was [place] the [place] then home about a week ago. EMS called today because patient is unable to raise up from the toilet due to severe generalized weakness. On admission the patient is A+O, laboratory studies are pertinent for blood glucose of 446,but no evidence of DKA, UA positive for pyuria,LES, TSH of 13 K. Chest x-ray did not show any consolidation , CT of the head revealed mild atrophy, and chronic ischemic changes. She denied any fevers, chills, chest pain, shortness of breath,or UL weakness Hospital Course: Generalized weakness, lethargy Multifactorial: Likely secondary to decreased mobility, chronic pain, also dehydration with hyperglycemia, polyuria, hypothyroid Physical therapy ordered SNF arranged but patient and family elected for her to return home with them. HH ordered ?? T2DM,??uncontrolled,??hyperglycemia, CKD3 Hyperosmolar state, mild ,calculated serum ??osmolality of 302 Not??in?DKA A1c of 11 in 04/2019 Metformin listed at her home list, but no insulin Per pharmacy patient did not??fill?metformin for several months Possible noncompliance Started on Lantus 20 units nightly. Educated on administration. Coverage verified by SW. Also givenprescription for testing supplies. ?? UTI -> ruled out Abnormal UA Patient started empirically on Rocephin Urine culture NGTD Lactic acid negative, no evidence of sepsis ?? Iron deficiency anemia Recent iron 43 (04/2019) Folate, B12 WNL No evidence of active bleeding Follow-up with PCP ?? CKD stage III At her baseline ?? Hypothyroid TSH of 13 Free T4 0.44 Levothyroxine 50 mcg daily started. Repeat TFTs in 4-6 weeks with PCP ?? Chronic??LLE, billateral buttocks pressure ulcers stage III POA Wound care consulted Possible mild surrounding erythema and low grade fever noted. Prescribed Levaquin x5 days Specific follow-up testing/results for PCP: Blood glucose Discharge Exam: Filed Vitals: 06/07/19 0320 06/07/19 0549 06/07/19 0732 06/07/19 1111 BP: 145/56 141/58 (!) 120/94 Pulse: 85 83 98 Resp: 18 18 18 Temp: 98.6 ??F (37 ??C) 98.8 ??F (37.1 ??C) 97.6 ??F (36.4 ??C) TempSrc: Oral Oral Oral SpO2: 95% 96% 98% Weight: 88.5 kg (195 lb 1.7 oz) Height: -GENERAL: No acute distress, Well nourished, obese -HEAD: Normocephalic, Atraumatic -EYES: Extraocular movements intact -LUNGS: Effort normal -EXT: mild edema -NEURO: Awake, alert, oriented, No gross neuro deficits -SKIN: distal posterior LLE ulcer with clean base Consults: none Significant Diagnostic Studies: Recent Labs Lab 06/05/19 1354 06/06/19 0707 WBC 7.2 6.9 RBC 3.14* 2.92* HGB 9.2* 8.6* HCT 28.3* 26.9* MCV 90.1 92.1 MCH 29.3 29.5 MCHC 32.5 32.0 PLT 304 295 RDW 14.3 14.6* MPV 10.0 9.5 PERNEU 66.8 70.2 PERLYM 19.6 18.0 PERMON 10.3 8.2 LYMC 1.40 1.24 MONOC 0.74 0.56 EOSC 0.14 0.16 BASOC 0.05 0.06 DTYPE AUTOMATED DIFFERENTIAL AUTOMATED DIFFERENTIAL Recent Labs Lab 06/05/19 1354 06/06/19 0707 06/07/19 0609 NA 131* 138 137 K 4.3 4.0 3.9 CL 96* 103 101 CO2 29.9 29.9 30.5 AGAP 5.1 5.1 5.5 BUN 23* 19* 21* CR 1.19* 0.82 0.92 BUNCREATININ 19.3 23.1 22.9 GFRNON 48* 76* 66* GFR 56* 88* 76* GLU 446* 74 159* CA 8.4* 8.0* 8.6 TP 8.1 -- -- ALB 3.1* -- -- TBIL 0.8 -- -- ALKP 70 -- -- AST 23 -- -- ALT 30 -- -- Recent Labs Lab 06/06/19 0707 TSH 17.600* No results for input(s): APTT, INR, PTT in the last 168 hours. No results for input(s): TROP, TROPIWB, CKMB, CPK in the last 168 hours. Recent Labs Lab 06/05/19 1354 06/05/19 1615 LACTICACID 1.7 1.5 No results for input(s): PH, PCO2, PO2, [id number], BICARBWB, BASEDEFICIT, BASEEXCESS in the [id number] hours. No results found for this or any previous visit. Radiology Reports : Ct Head Wo Con Result Date: 06/05/2019 [...] ischemic changes. Xr Chest Portable Result Date: 06/05/2019 Examination: [...] of the lungs show no focal infiltrates. Ir Midline Placement Greater 3yr Result Date: [...] re and dilator removed and a 4 Spanish 20 cm single midline was advanced to the level of the axillary vein. Position was confirmed fluoroscopically. Catheter was secured to the skin with adhesive dressing. Patient tolerated the procedure well. There were no immediate complications. Fluoroscopy time:2 seconds Number of images: 2 saved IMPRESSION: 1. Technically successful, right mid arm brachial 4 Spanish 20 cm midline catheter placement. Discharge Medications: Medication List START taking these medications insulin glargine 100 UNIT/ML injection (PEN) Commonly known as: Lantus SoloStar Inject 20 Units into the skin nightly at bedtime. Insulin Pen Needle 31G X 5 MM Misc Use with Lantus Solostar pen to inject insulin nightly. levofloxacin 500 MG tablet Commonly known as: LEVAQUIN Take 1 tablet (500 mg total) by mouth nightly at bedtime for 5 days. levothyroxine 50 MCG tablet Commonly known as: SYNTHROID Take 1 tablet (50 mcg total) by mouth daily. Start taking on: June 08, 2019 CONTINUE taking these medications chlorthalidone 25 MG tablet Commonly known as: HYGROTEN Take 1 tablet (25 mg total) by mouth daily. gabapentin 300 MG capsule Commonly known as: NEURONTIN Take 1 capsule (300 mg total) by mouth 3 (three) times daily. Where to Get Your Medications These medications were sent to [facility] - [place], [place] - [address] [facility] [address] [facility] [id number] ?? insulin glargine 100 UNIT/ML injection (PEN) ?? Insulin Pen Needle 31G X 5 MM Misc ?? levofloxacin 500 MG tablet ?? levothyroxine 50 MCG tablet Disposition: Home with Home Health Patient Instructions: Follow-up appointments: PCP Time Spent on Discharge: greater than 30 minutes Signed: LORAINE ORDOÑEZ MD documented in this encounter Discharge Instructions * Discharge Instructions* Fela Lo RN - 06/07/2019 1:24 PM CDT Images from the original note were not included. Patient Education Diabetes and Diet The Basics Written by the doctors and editors at [facility] Why is diet important in diabetes???--??Diet is [...] process is complete. This topic retrieved from [employer] on: Oct 24, 2018. Topic 32597 Version 6.0 Release: 27.3.2 - C27.227 ?2019??[employer]. and/or its affiliates.??All rights reserved. Consumer Information [...] that is right for you.The use of [employer] content is governed by the [employer] Terms of Use. ??2019 [employer]. All rights reserved. Copyright ?2019??[employer]. and/or its affiliates.??All rights reserved. Patient Education Hyperglycemia Discharge Instructions, Adult About this topic Hyperglycemia is also known as high blood sugar. Sugar is in the food you eat. Your body needs insulin to use the sugar in your bloodstream. Having the right amount of insulin controls the amount of sugar in your blood. If you do not have enough insulin, or if the body cannot detect the insulin, the glucose or sugar stays in your blood instead of going into your cells. This causes your blood sugar levels to be too high. High blood sugar may turn into a health problem known as diabetes. You may not notice if your bloodsugar levels are slightly high. When they get very high, you may have more thirst, need to pass urine more often, and have weight loss. What care is needed at home? ?? Ask your doctor what you need to do when you go home. Make sure you ask questions if you do not understand what the doctor says. This way you will know what you need to do. ?? Take all drugs as ordered by your doctor. Do not miss doses. Ask your doctor what to do if you miss a dose. ?? Check your blood sugar levels as you are told by your doctor. Write down the readings. You may want to write down what you eat, the drugs you take, and any exercise you do. This information can behelpful for your doctor. ?? Your doctor may teach you to test your urine or blood for ketones. You may need to test this when you are feeling ill or have high blood sugar levels. ?? Drink liquids that do not have sugar. ?? Eat your meals at the same time each day. Learn about the right size servings for you. ?? Talk with your doctor about a diet plan that is right for you. What follow-up care is needed? ?? Your doctor may ask you to make visits to the office to check on your progress. Be sure to keep these visits. ?? Your doctor may order a blood test to check how your sugar levels have been over time. This is ahemoglobin A1C level. You may need to have these done every 3 to 6 months. Be sure to have this test done as ordered. Will physical activity be limited? Talk with your doctor about an exercise plan that is right for you. What problems could happen? ?? High levels of acids called ketones build up in the blood. This is a very serious problem. ?? Infection ?? Injury to blood vessels and nerves What can be done to prevent this health problem? ?? Control your weight. ?? Limit beer, wine, and mixed drinks (alcohol). ?? Check your blood sugar levels as instructed. ?? Know the signs of high blood sugar and get help when needed. When do I need to call the doctor? ?? Signs of low blood sugar. These include anger, paleness, shaking, a fast heartbeat, confusion, or sweating. Keep hard candies, glucose tablets, liquid glucose, or juice on hand for low blood sugar. Ask your doctor how much you need to take to treat low blood sugar. ?? Signs of high blood sugar. These include sleepiness, blurry eyesight, passing urine more often, increased thirst, breath has a fruity sweet smell, fast breathing, upset stomach and throwing up, dizziness, or passing out. If you test for ketones, these are usually high. ?? Signs of fluid loss. These include dark-colored urine or no urine for more than 8 hours, dry mouth and tongue, dry skin, sunken eyes, lack of energy, feeling faint, throwing up, or passing out. ?? Blood sugar levels are high for more than 2 days ?? Shortness of breath or trouble breathing ?? You are not feeling better in 2 to 3 days or you are feeling worse Teach Back: Helping You Understand The Teach Back Method helps you understand the information we are giving you. The idea is simple. After talking with the staff, tell them in your own words what you were just told. This helps to makesure the staff has covered each thing clearly. It also helps to explain things that may have been abit confusing. Before going home, make sure you are able to do these: ?? I can tell you about my condition. ?? I can tell you how often I need to check my blood sugar. ?? I can tell you the signs of high blood sugar and what I will do if I have them. ?? I can tell you the signs of low blood sugar and what I will do if I have them. Where can I learn more? [employer] https://familydoctor.org/condition/diabetes/ [place] http://www.diabetes.org/zhunvx-iqwr-qcurlose/yqmlclxpq-tlx-afhz/ieszz-dussibt-gb ntrol/hyperglycemia.html Last Reviewed Date 2018-09-21 Consumer Information Use and Disclaimer This information [...] right for you. Copyright Copyright ?? 2019 [employer] and its affiliates and/or licensors. All rights reserved. * Attachments The following attachments cannot be sent through Care Everywhere. * Insulin Glargine, ADULT (Georgian) * Insulin Injection (Georgian) * Low Blood Sugar in People With Diabetes (Georgian) documented in this encounter Medications at Time of Discharge chlorthalidone 25 MG tablet Take 1 tablet (25 mg total) by mouth daily. 30 tablet 05/17/2019 gabapentin 300 MG capsule Take 1 capsule (300 mg total) by mouth 3 (three) times daily. 90 capsule 05/16/2019 levothyroxine 50 MCG tablet Take 1 tablet (50 mcg total) by mouth daily. 30 tablet 06/08/2019 insulin glargine (LANTUS SOLOSTAR) 100 UNIT/ML injection (PEN) Inject 20 Units into the skin nightly at bedtime. 6 mL 06/07/2019 0 Insulin Pen Needle 31G X 5 MM Misc Use with Lantus Solostar pen to inject insulin nightly. 30 Container 06/07/2019 0 levofloxacin 500 MG tablet Take 1 tablet (500 mg total) by mouth nightly at bedtime for 5 days. 5 tablet 06/07/2019 0 documented as of this encounter Progress Notes * Silvia Almonte PTA - 06/07/2019 3:31 PM CDT 06/07/19 1430 Therapy Visit Ordering Provider JESSICA [id number]; Per RN, pt is discharging today and no therapy is needed Reason for admission MULTI-FACTORIAL WEAKNESS, UNCONTROLLED NIDDM, UTI, HYPERGLYCEMA Relevant Comorbidities/ Personal Factors to PT IRON DEFICIENCY ANEMIA, BREAST CA, DM, ED, HTN, HYPOTHYROID, NEUROPATHY, RECENT SEPSIS, LLE AND B BUTTOCKS ULCERS Verified Two Patient Identifiers Yes Patient consents to therapy Yes * BELA Oglesby - 06/07/2019 3:16 PM CDT 06/07/19 1515 Discharge Planning Living Arrangements Family members Support Systems Children Type of Residence Private residence Home Care Services Yes Type of Home Care Services Homehealth Patient expects to be discharged to: Home Pt was going to go to long-term but daughter Celina called maxime CRAMER, SUPERVISOR DRAWING today and stated family plans to take pt home and care for her. They want home health and homemakers. MAXIME called Criss from [facility] to reach out to daughter about homemakers and referred to [facility]. They are havingtrouble getting fax and plan to reach back out to Lesa on Monday to try and send info again,. They spoke with pts Dr Cecilio Aldrich's office and state that pt has appointment Monday and they want to see her before they will sign for home health. Pts son will transport home. SW checked cost of insulin prescribed and it is covered with no cost. Script for glucometer and strips provided and nurse Loree Chappell RN giving education to daughter over phone and son when he picks pt up. * Joann Cotter RN - 06/07/2019 12:39 AM CDT Problem: Pain control/comfort Goal: Promote pain control/comfort Outcome: Progressing Note: Patient did not complain of any pain during this shift. Problem: Skin integrity, Impaired-wound Goal: Absence of new skin breakdown Outcome: Progressing Note: Patient is absent of new skin breakdown. Patient is being turned every 2 hours. Problem: Daily Care Goal: Daily care needs are met Description Assess and monitor ability to perform self care and identify potential discharge needs. Outcome: Progressing Note: Patient daily care needs have been met during this shift. * Fela Lo RN - 06/06/2019 4:07 PM CDT Problem: Discharge Planning Goal: Knowledge of discharge instructions Outcome: Progressing Problem: Skin integrity, Impaired-wound Goal: Evidence of wound healing Outcome: Progressing Problem: Skin integrity, Impaired-pressure injury/ulcer Goal: Evidence of pressure injury/ulcer healing Outcome: Progressing Problem: Moisture associated skin impairment Goal: Evidence of wound healing Outcome: Progressing Goal: Evidence of pressure injury/ulcer healing Outcome: Progressing Problem: Pain control/comfort Goal: Promote pain control/comfort Outcome: Met This Shift Problem: Skin integrity, Impaired-wound Goal: Absence of new skin breakdown Outcome: Met This Shift Problem: Skin integrity, Impaired-pressure injury/ulcer Goal: Absence of new skin breakdown Outcome: Met This Shift Problem: Skin integrity, at risk Goal: Absence of new skin breakdown Outcome: Met This Shift Problem: Moisture associated skin impairment Goal: Reduce moisture exposure Outcome: Met This Shift Goal: Absence of new skin breakdown Outcome: Met This Shift Problem: Daily Care Goal: Daily care needs are met Description Assess and monitor ability to perform self care and identify potential discharge needs. Outcome: Met This Shift Problem: Venous Thromboembolism - Risk of Goal: Absence of venous thromboembolism Outcome: Met This Shift * Meche Alves, HYDROELECTRIC PLANT MECHANICAL ENGINEER - 06/06/2019 2:45 PM CDT 06/06/19 1443 Therapy Visit Subjective Attempted to see pt BID but pt in bed drowsy. Pt had a hard time keeping eyes open to answer simple questions. Pt not appropriate to work with BID due to drowsiness. Will follow up later time and date. * BELA Oglesby - 06/06/2019 1:48 PM CDT Per nurse Macie PALMER pt has not been very alert and oriented today and would be best to speak with family. SW spoke with son Alisson. He states that pt was just at [facility] and had went to hospital in [place] and when released her other son picked her up and she told him to take her home not to [place]. Son states that she cannot care for herself and needs to go back to [place]. MAXIME CRAMER, SUPERVISOR DRAWING spoke with daughter Celina as well who confirms this. They would like for her to go back to [facility]. MAXIME faxed referral and tried to call and speak to someone several times but the phone just rings and nobody picks up. Will continue to follow up. DAVIN asked to screen. Pt could potentially be ready fordischarge tomorrow 06/06. MAXIME will follow up with [facility] for acceptance. If confusion continues ptwould need ambulance to transport to [place]. * Nevaeh Thompson, PT - 06/06/2019 12:49 PM CDT 06/06/19 1200 Therapy Visit Ordering Provider JESSICA PT Received On 06/06/19 Subjective ROOM [id number]: PT IN BED UPON THIS THERAPIST ENTRANCE TO ROOM. PLEASANT BUT TALKATIVE AND TANGENTIAL WARRANTING FREQUENT REDIRECTION TO TASKS AND INTERVIEW QUESTIONS. PT QUESTIONABLE HISTORIAN. Reason for admission MULTI-FACTORIAL WEAKNESS, UNCONTROLLED NIDDM, UTI, HYPERGLYCEMA Relevant Comorbidities/ Personal Factors to PT IRON DEFICIENCY ANEMIA, BREAST CA, DM, ED, HTN, HYPOTHYROID, NEUROPATHY, RECENT SEPSIS, LLE AND B BUTTOCKS ULCERS Verified Two Patient Identifiers Yes Patient consents to therapy Yes Acute Inpatient PT Time Calculation PT Start Time 1152 PT Stop Time 1233 PT Time Calculation (min) 41 min PT Therapy Interruption (min) 0 Precautions Precautions Yes/No Yes General Precautions Bed Alarm;Fall Risk;Monitor Vitals Instructed on Precautions Yes;Needs reinforcement and education Skin Integrity COMPROMISED WITH LLE AND B BUTTOCKS ULCERS Home Living Type of Home Apartment Home Layout One level Home Accessibility 0 Steps to enter (NO STEPS AT BACK ENTRANCE) Home Equipment 2 Wheeled walker;Wheelchair-manual Additional Comments HOME SETTING DESCRIBED IS SETTING WHERE SHE RESIDES WITH HER GRANDDAUGHTER THOUGH PT QUESTIONABLE HISTORIAN. Prior Function Level of [place] Needs assistance with ADLs;Needs assistance with homemaking;Needs assistance with functional transfers Device used at baseline Wheelchair-manual Baseline Ambulation Distance/Assistance PT INDICATED THAT SHE USES A W/C HER MAIN MEANS OF MOBILITY. WHEN QUESTIONED REGARDING HER GAIT STATUS AT BASELINE PT STATES IT HAS BEEN A LONG TIME SINCE I COULD WALK WELL ESPECIALLY BY MYSELF Fall History (UNCLEAR, PT POOR HISTORIAN) Lives With Family Receives Help From Family Comments PT REPORTS FAMILY CAN NOT BE WITH HER ALL THE TIME Pain Pain Yes Location BLE PAIN INCREASED WITH MOVEMENT AND WB AND RELIEVED AT REST. Interventions Relaxation;Re-positioning Activity Tolerance Endurance Tolerates 20 - 30 min activity with rests Activity Tolerance Comments ALL MOVEMENT SLOW AND GUARDED DUE TO BLE PAIN Cognition Overall Cognitive Status Impaired Attention Span Attends with cues to redirect Memory (IMPAIRED) Orientation Level Oriented to place;Oriented to time;Oriented to person;Disoriented to situation (POOR UNDERSTANDING TO MEDICAL STATUS) Following Commands Follows one step commands with repetition (EASILY DISTRACTED) Safety Judgment Decreased awareness of need for safety Deficits Decreased awareness of deficits Overall Extremity Assessment Lower Extremity Comment LIMITED GROSS ROM ALL JOINTS AND PLANES BLES; WEAKNESS NOTED THROUGHOUT WITH GUARDED MOVEMENT LESS THAN 3/5 Bed Mobility Supine to Sit Mod assist to right (INCREASED TIME, CUES, USE OF THE R BEDRAIL, HOB ELEVATED) Sit to Supine Max assist to right (TO RAISE BLES BACK ONTO THE BED) TRANSFERS Sit to Stand Min assist;Mod assist (SAFETY CUES APPROACH TO THE W/W; IMPROVED WITH REPETITION) Gait Other (Comment) W/C IS PRIMARY MEANS OF MOBILITY AT BASELINE. DEFERRED DUE TO PT REPORTS OF INCREASED BLE PAIN WITH WB TASKS. PT WAS ABLE TO LATERAL SIDESTEP AT THE BEDSIDE WITH SUPPORT OF THE W/W AND MIN ASSIST WITH CUES. Balance Sitting - Static SBA;Min Assist (INITIAL POSTERIOR LEAN IMPROVED WITH TIME AND EDUCATION ) Sitting - Dynamic Mod Assist Standing - Static Min Assist;Mod Assist (WITH SUPPORT OF THE W/W ) Patient/Family Training Bed Mobility X Transfer Training X Precautions X Other (Comment) SITTING AND STANDING NMRE Assessment Personal Factors/Comorbidities Impacting Care 3-4 personal factors/comorbidities Examination of Body Systems High (at least 4 Elements) Objectives of Body Systems Impaired bed mobility;Impaired transfers;Impaired ambulation;Impaired balance;Decreased ADL status;Decreased LE ROM;Decreased LE strength;Decreased safe judgement;Decreasedcognition;Decreased endurance Clinical Presentation of Patient Unpredictable and unstable characteristics Complexity Level of Evaluation High Prognosis Fair;Guarded PT Assess/Eval Other (Comment) PT IS A QUESTIONABLE HISTORIAN BUT DID REPORT SHE HAS BEEN AT 2 NH FACILITIES OVER THE PAST 5 PLUS MONTHS. WHEN QUESTIONED REGARDING WHETHER SHE WAS RECEIVING THERAPY DURING THOSE STAYS SHE STATED SHE DID FOR A WHILE UNTIL THE STAFF DIDN'T LIKE HER SINGING AND STOPPEDSERVICES. (?QUESTION PLATEAU OF FUNCTION) . THE EMR REFLECTS THAT THE FAMILY IS NOT ABLE TO CARE FOR PT AT HOME 03/10. SUCH RECOMMENDATIONS FOR LTC PLACEMENT APPEARS TO BE WARRANTED. DISCUSSED WITHRN. Recommendation PT Recommendation PT during Hospitalization;Other (Comment) (LTC PLACEMENT ) PT Equipment Recommended (PT INDICATED THAT SHE HAS HER OWN W/C ) Plan PT Treatments/Interventions Gait Training;Therapeutic Exercises;Therapeutic Activities;Neuromuscular re-education;Patient/family training PT Frequency Daily;BID;6 times/week PT plan for next session WORK ON BED MOBILITY, SITTING AND STANDING BALANCE AND TRANSFER TRAINING. If this is the last treatment note,it will serve as the discharge summary Yes End of Session Safety End of Session Safety Bed alarm set/activated;Call light within reach;Nursing aware of session;Transfer status education * Loraine Ordoñez MD - 06/06/2019 11:05 AM CDT Hospitalist Daily Progress Note Subjective Patient with no new complaints. Denies SOB, pain. Objective Filed Vitals: 06/05/19 2333 06/06/19 0350 06/06/19 0740 06/06/19 1131 BP: 130/49 140/68 107/48 116/48 Pulse: 71 70 80 86 Resp: 18 18 18 18 Temp: 97.6 ??F (36.4 ??C) 98 ??F (36.7 ??C) TempSrc: Oral Oral SpO2: 99% 97% 100% 97% Weight: 81.6 kg (180 lb) Height: Intake/Output 24H Total: Intake/Output Summary (Last 24 hours) at 06/06/2019 1459 Last data filed at 06/06/2019 0932 Gross per 24 hour Intake 1509 ml Output 600 ml Net 909 ml Physical Exam: -GENERAL: No acute distress, Well nourished -HEAD: Normocephalic, Atraumatic -EYES: Extraocular movements intact -LUNGS: Effort normal, Clear to auscultation bilaterally, No wheezes, No crackles, No ronchi -CVS: Regular rate and rhythm, S1 and S2 normal -EXT: trace edema -NEURO: Awake, alert, oriented, No gross neuro deficits Medications ??? cefTRIAXone 1 g Intravenous Q24H ??? heparin (porcine) 5,000 Units Subcutaneous 2 times per day ??? insulin glargine 10 Units Subcutaneous Nightly at bedtime ??? insulin lispro 0-14 Units Subcutaneous TID AC And ??? insulin lispro 0-7 Units Subcutaneous Nightly at bedtime ??? levothyroxine 50 mcg Oral Daily acetaminophen, ondansetron Labs, Imaging, Other Studies Recent Labs Lab 06/05/19 1354 06/06/19 0707 WBC 7.2 6.9 RBC 3.14* 2.92* HGB 9.2* 8.6* HCT 28.3* 26.9* MCV 90.1 92.1 MCH 29.3 29.5 MCHC 32.5 32.0 PLT 304 295 RDW 14.3 14.6* MPV 10.0 9.5 PERNEU 66.8 70.2 PERLYM 19.6 18.0 PERMON 10.3 8.2 LYMC 1.40 1.24 MONOC 0.74 0.56 EOSC 0.14 0.16 BASOC 0.05 0.06 DTYPE AUTOMATED DIFFERENTIAL AUTOMATED DIFFERENTIAL Recent Labs Lab 06/05/19 1354 06/06/19 0707 NA 131* 138 K 4.3 4.0 CL 96* 103 CO2 29.9 29.9 AGAP 5.1 5.1 BUN 23* 19* CR 1.19* 0.82 BUNCREATININ 19.3 23.1 GFRNON 48* 76* GFR 56* 88* GLU 446* 74 CA 8.4* 8.0* TP 8.1 -- ALB 3.1* -- TBIL 0.8 -- ALKP 70 -- AST 23 -- ALT 30 -- Recent Labs Lab 06/06/19 0707 TSH 17.600* No results for input(s): APTT, INR, PTT in the last 168 hours. No results for input(s): TROP, TROPIWB, CKMB, CPK in the last 168 hours. Recent Labs Lab 06/05/19 1354 06/05/19 1615 LACTICACID 1.7 1.5 No results for input(s): PH, PCO2, PO2, [id number], BICARBWB, BASEDEFICIT, BASEEXCESS in the pcep930 hours. No results found for this or any previous visit. Imaging Ct Head Wo Con Result Date: 06/05/2019 [...] abnormalities. Mild atrophy with chronic ischemic changes. Usv Art Rest W Rebecca Low Ext Result Date: 05/11/2019 ARTERIAL DOPPLER - REBECCA BILATERAL LOWER EXTREMITY VASCULAR LAB Pat.Name: IRIS PASCUAL Pat.ID:[id number] .Date: 05/08/2019 Refer.MD: Kimberley Durant Exam Time: 10:48:00 AM Study Type:FRANCISCO VS Arterial Doppler Legs BRENDON Age: 11 1955,64Y Sex: FEMALE Sonogrphr: THAI Benjamin Pat. 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 Xr Chest Portable Result Date: 06/05/2019 Examination: [...] of the lungs show no focal infiltrates. Ir Midline Placement Greater 3yr Result Date: [...] re and dilator removed and a 4 Spanish 20 cm single midline was advanced to the level of the axillary vein. Position was confirmed fluoroscopically. Catheter was secured to the skin with adhesive dressing. Patient tolerated the procedure well. There were no immediate complications. Fluoroscopy time:2 seconds Number of images: 2 saved IMPRESSION: 1. Technically successful, right mid arm brachial 4 Spanish 20 cm midline catheter placement. : Results for orders placed or performed during the hospital encounter of 06/05/19 [address] 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 : 1955 Requested By: PETERSON MCMILLAN Order Number: [id number] Reading MD: Jevon Tovar Measurements Intervals Burket Rate: 84 P: 56 ND: 144 QRS: -35 QRSD: 97 T: 59 QT: 401 QTc: 474 Interpretive Statements SINUS RHYTHM MARKED LEFT AXIS DEVIATION SEPTAL MYOCARDIAL INFARCTION, PROBABLY OLD Left Anterior Fascicular Block Non-specific ST & T wave abnormality Compared to ECG 05/13/2019 11:54:07 Left-axis deviation now present Myocardial infarct finding still present No ischemic changes Peterson Mcmillan PA-C CRITICAL ALERT ISSUED ON 06-05-2019 14:08:14 Assessment & Plan 64-year-old female with past medical history significant for breast cancer, DM, HTN, ED, neuropathy, hypothyroid who was just discharged from our hospital on 05/16, hospitalized with sepsis, distal LLE(stage III) ulcer, stage III pressure ulcer bilateral thighs, UTI. At that time wound culture grew Pseudomonas and Morganella, treated with Fortaz, continued on Levaquin as outpatient. Patient was DCto the [place] then home about a week ago. EMS called today because patient is unable to raise up from the toilet due to severe generalized weakness. On admission the patient is A+O, laboratory studies are pertinent for blood glucose of 446,but no evidence of DKA, UA positive for pyuria,LES, TSH of 13 K. Lactic acid is negative chest x-ray did not show any consolidation , CT of the head revealed mild atrophy, and chronic ischemic changes.She denied any fevers, chills, chest pain, shortness of breath,or UL weakness Per ER report family is unable to take care of her anymore, requested SNF after the discharge ? Generalized weakness, lethargy Multifactorial: Likely secondary to decreased mobility, chronic pain, also dehydration with hyperglycemia, polyuria,hypothyroid Physical therapy ordered Fall precaution ?? NIDDM, uncontrolled, hyperglycemia of diabetes Hyperosmolar state, mild ,calculated serum osmolality of 302 Not in DKA ISS A1c of 11 in 04/2028 Metformin listed at her home list, but no insulin Per pharmacy patient did not fill metformin for several months Possible noncompliance Hypoglycemic this AM, likely 2/2 insulin dose stacking. Monitor BG trend closely ?? UTI Abnormal UA, Patient started empirically on Rocephin Urine culture pending Lactic acid negative, no evidence of sepsis ?? Iron deficiency anemia Recent iron 43 (04/2019) Folate, B12 WNL No evidence of active bleeding ?? CKD stage III, At her baseline, continue monitoring ?? Hypothyroid TSH of 13 Free T4 0.44 Levothyroxine 50 mcg daily started. Repeat TFTs in 4-6 weeks with PCP Likely noncompliance , no HRT listed on her home list, ?? Chronic LLE, billateral buttocks pressure ulcers stage III POA Wound care consult , frequent repositioning Plan of care discussed with RN. LORAINE ORDOÑEZ MD * Loraine Ordoñez MD - 06/06/2019 11:02 AM CDT Code 44 note Per chart review, patient is considered to be observation appropriate. LORAINE ORDOÑEZ MD * Cecilia Garcia MD - 06/06/2019 9:50 AM CDT After review of the medical record and discussion with the attending physician, the patient's status is appropriate for Outpatient (Observation services), in accordance with the physician's order andthe hospital services rendered. * Onelia Aquino RN - 06/06/2019 2:55 AM CDT Problem: Pain control/comfort Goal: Promote pain control/comfort Outcome: Progressing No complaints of pain or discomfort this shift. * Angelia Estrella LCSW - 06/05/2019 5:03 PM CDT Per RN, pt lives with granddaughter and family stated they are unable to care for pt at home any longer. Attempted to speak with pt about LTC placement. Pt extremely lethargic and unable to stay awake for conversation. Per RN, pt A&Ox4 and was talkative earlier. Provider came in to see why pt lethargic and decided to admit. Pt will need assistance with LTC placement. documented in this encounter H&P Notes * Gladys Padilla MD - 06/05/2019 4:44 PM CDT Hospitalist History and Physical Patient: Iris Pascual Date: 06/05/2019 female, 64-year-old Admit Date: 06/05/2019 Attending: CARLOS Ferris;H* REASON FOR ADMISSION: weakness HISTORY OF PRESENT ILLNESS: Iris Pascual is a 64-year-old female with past medical history significant for breast cancer,DM, HTN, ED, neuropathy, hypothyroid who was just discharged from our hospital on 05/16, hospitalizedwith sepsis, distal LLE (stage III) ulcer,UTI, stage III pressure ulcer bilateral buttoks. At that time wound culture grew Pseudomonas and Morganella, treated with Fortaz, continued on Levaquin as outpatient. Patient was DC to the IN then home about a week ago. EMS called today because patient is unable to raise up from the toilet due to severe generalized weakness. On admission the patient is A+O, laboratory studies are pertinent for blood glucose of 446,but no evidence of DKA, UA positive for pyuria,LES, TSH of 13 K. Chest x-ray did not show any consolidation , CT of the head revealed mild atrophy, and chronic ischemic changes. She denied any fevers, chills, chest pain, shortness of breath,or UL weakness Allergy Allergies Allergen Reactions ??? Codeine Nausea and Vomiting Medication list (Not in a hospital admission) No current facility-administered medications on file prior to encounter. Current Outpatient Medications on File Prior to Encounter Medication Sig Dispense Refill ??? acetaminophen 500 MG tablet Take 1,000 mg by mouth daily as needed for Pain. Indications: Pain ??? atorvastatin 80 MG tablet Take 80 mg by mouth daily. Indications: High Amount of Cholesterol inthe Blood ??? chlorthalidone 25 MG tablet Take 1 tablet (25 mg total) by mouth daily. 30 tablet 0 ??? gabapentin 300 MG capsule Take 1 capsule (300 mg total) by mouth 3 (three) times daily. 90 capsule 0 ??? levothyroxine 100 MCG tablet Take 100 mcg by mouth daily. ??? metFORMIN 850 MG tablet Take 850 mg by mouth 2 (two) times daily with meals. ??? valsartan 160 MG tablet Take 160 mg by mouth daily. Indications: High Blood Pressure Disorder, heart failure Past Medical History Past Medical History: Diagnosis [...] file Gets together: Not on file Attends denominational service: Not on file Active member of [...] Narrative ??? Not on file Family History No family history on file. HTN mother REVIEW OF SYSTEMS: A 14 point review of systems was taken and pertinent positive as per HPI. Rest of review of systemsis negative. PHYSICAL EXAMINATION: Vital 24 Hour Range Most Recent Value Temperature Temp Min: 98.6 ??F (37 ??C) Max: 98.6 ??F (37 ??C) 98.6 ??F (37 ??C) Pulse Pulse Min: 89 Max: 89 89 Respiratory Resp Min: 18 Max: 18 18 Blood Pressure BP Min: 161/63 Max: 166/85 (!) 166/85 Pulse Oximetry SpO2 Min: 98 % Max: 100 % 98 % O2 No data recorded Vital Most Recent Value First Value Weight 80.8 kg (178 lb 2.1 oz) Weight: 80.8 kg (178 lb 2.1 oz) Height 5' 2 (157.5 cm) Height: 5' 2 (157.5 cm) BMI 32.6 N/A Physical Exam: -GENERAL: No acute distress, breathing comfortably on room air, lethargic. -EYES: Extraocular movements intact -ENT: External ears and nose unremarkable. Mucous membranes moist -LUNG: Decreased BS bilaterally, No wheezes, No crackles, nonlabored -CVS: Regular rate rhythm, S1 and S2 normal, No murmurs, -ABDOMEN: Positive bowel sounds, soft, nondistended, Nontender -EXT: no lower Ext edema. -NEURO: Alert, awake, oriented x2, somnolent but arousable no new gross neuro deficit, the patient is moving all extremities, following commands -PSYCH: Lethargic-SKIN: Multiple skin lesions as described below Intake/Output last 3 shifts: No intake/output data recorded. Labs: Recent Labs Lab 06/05/19 1354 NA 131* K 4.3 CL 96* CO2 29.9 AGAP 5.1 BUN 23* CR 1.19* BUNCREATININ 19.3 GFRNON 48* GFR 56* GLU 446* CA 8.4* Recent Labs Lab 06/05/19 1354 WBC 7.2 RBC 3.14* HGB 9.2* HCT 28.3* MCV 90.1 MCH 29.3 MCHC 32.5 PLT 304 RDW 14.3 MPV 10.0 Recent Labs Lab 06/05/19 1354 AST 23 ALT 30 No results for input(s): INR, PTT in the last 168 hours. Invalid input(s): ABG arterial blood gases No results for input(s): TROP, TROPIWB, CPK in the last 168 hours. Invalid input(s): CK-MB No results for input(s): PH, PCO2, PO2, [id number], BICARBWB, BASEDEFICIT, BASEEXCESS in the [id number] hours. Imagining & Other Studies No results found. 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 : 1955 Requested By: PETERSON MCMILLAN Order Number: [id number] Reading MD: Measurements Intervals Burket Rate: 84 P: 56 ND: 144 QRS: -35 QRSD: 97 T: 59 QT: 401 QTc: 474 Interpretive Statements SINUS RHYTHM MARKED LEFT AXIS DEVIATION SEPTAL MYOCARDIAL INFARCTION, PROBABLY OLD Compared to ECG 05/13/2019 11:54:07 Left-axis deviation now present ST (T wave) deviation no longer present Myocardial infarct finding still present Assessment & Plan 64-year-old female with past medical history significant for breast cancer, DM, HTN, ED, neuropathy, hypothyroid who was just discharged from our hospital on 05/16, hospitalized with sepsis, distal LLE(stage III) ulcer, stage III pressure ulcer bilateral thighs, UTI. At that time wound culture grew Pseudomonas and Morganella, treated with Fortaz, continued on Levaquin as outpatient. Patient was DCto the IN then home about a week ago. EMS called today because patient is unable to raise up from the toilet due to severe generalized weakness. On admission the patient is A+O, laboratory studies are pertinent for blood glucose of 446,but no evidence of DKA, UA positive for pyuria,LES, TSH of 13 K. Lactic acid is negative chest x-ray did not show any consolidation , CT of the head revealed mild atrophy, and chronic ischemic changes.She denied any fevers, chills, chest pain, shortness of breath,or UL weakness Per ER report family is unable to take care of her anymore, requested SNF after the discharge Generalized weakness, lethargy Multifactorial: Likely secondary to decreased mobility, chronic pain, also dehydration with hyperglycemia, polyuria,hypothyroid Physical therapy ordered Fall precaution NIDDM, uncontrolled, hyperglycemia of diabetes Hyperosmolar state, mild ,calculated serum osmolality of 302 Not in DKA ISS A1c of 11 in 04/2028 Metformin listed at her home list, but no insulin Per pharmacy patient did not fill metformin for several months Possible noncompliance UTI Abnormal UA, Patient started empirically on Rocephin Urine culture Lactic acid negative, no evidence of sepsis Iron deficiency anemia Recent iron 43 (04/2019) Folate, B12 WNL No evidence of active bleeding CKD stage III, At her baseline, continue monitoring Hypothyroid TSH of 13 Free T4 pending Added levoxyl Likely noncompliance , no HRT listed on her home list, Chronic LLE, billateral buttocks pressure ulcers stage III POA Wound care consult , frequent repositioning prophx: SCDs, heparin Time spent more than 30 minutes Full code I have seen and examined the patient independently and anticipate patient will require a greater than 2 midnight stay. GLADYS PADILLA MD 06/05/2019 4:44 PM documented in this encounter Consult Notes * Martha Thompson, RD - 06/06/2019 1:02 PM CDT A: CHART REVIEWED FOR MST SCORE 3 ( UNSURE OF WEIGHT LOSS WITH DECREASED APPETITE) . MEDICAL RECORDS REFLECTS 10% WEIGHT LOSS IN LAST MONTH BRINGING BMI TO 32.9., INTAKE GOOD SINCE ADMIT: 100% X 1 MEAL PROVIDED. PT WITH STAGE 3 ULCER ON BUTTOCKS ON 05/17/19 AND MULTIPLE WOUNDS ON BILATERAL LEGS. PT ALSO WITH UNCONTROLLED BLOOD SUGARS WITH ADMIT BLOOD SUGAR OF 446. EST. CALORIE NEEDS: 8134-3606 TAVO(MSJX1.2-1.3) - 300 TAVO = 7577-2471 TAVO TO SUPPORT DESIRED WEIGHT LOSS. EST. PROTEIN NEEDS: PROTEIN NEEDS: 75-81 GM PROTEIN ( 1.3-1.4 GM PRO/[id number]) EST. CHO NEEDS: 187 GM CHO/DAY = 60 GM CHO/MEAL. REVIEWED LABS AND MEDICATIONS. D; PES=UNINTENTIONAL WEIGHT LOSS RT INADEQUATE ENERGY INTAKE AEB 10% WEIGHT LOSS IN LAST MONTH. I: GOALS; RECOMMEND 60 GM CHO/MEAL, TRAVIS SUPPLEMENT BID TO PROVIDE AN ADDITIONAL 28 GM PROTEIN DAILY IF ALL IS TAKEN. M/E: PT AT MODERATE NUTRITION RISK. F/U 06/13/19. GOALS: INTAKE > 70%, TAKING TRAVIS DAILY. documented in this encounter Nursing Notes * Loree Chappell RN - 06/07/2019 2:11 PM CDT This RN spoke with kyle Patrick and provided education related to insulin administration and monitoring patient's blood glucose BID as well as signs and symptoms of hypoglycemia. Additional education provided in AVS. * Loree Chappell RN - 06/07/2019 1:41 PM CDT This RN attempted to call kyle Patrick per her request to provide education related to insulin administration after discharge. Daughter did not answer; unable to leave voice message because mail box was full. documented in this encounter ED Notes * Bronwyn Mejia RN - 06/05/2019 3:47 PM CDT Pt sent to [place] Bronwyn M Deprow, RN * CARLOS Ferris - 06/05/2019 3:33 PM CDT [place] EMERGENCY DEPARTMENT ENCOUNTER HISTORICAL INFORMATION Primary Care Doctor: Don Branham MD Patient information was obtained primarily from the patient, nursing notes History/Exam limitations: None Provider at Bedside Date/Time Event User Comments 06/05/19 1345 Provider at Bedside Assessing Patient MCMILLANPETERSON CHIEF COMPLAINT Weakness and Hyperglycemia HPI Iris Pascual is a 64-year-old female with hx of breast cancer, DM and HTN who presents weakness, hyperglycemia. According to EMS they were called because pt couldn't get off the toilet this morning. Pt had not fallen. Pt has been living with grand daughter for the last month? Since getting out of assisted living (history is unclear exactly - pt does not know and cannot name her facility). Family is not around. Pt states she is not currently on medications for her DM. Pt denies pain. Pt c/o left sided weakness but this has been for weeks or longer . EMS states that family stated they cannot take care of her at home. PAST MEDICAL HISTORY Past Medical History: Diagnosis Date ??? Cancer (CMS/HCC) breast ??? Diabetes mellitus (CMS/HCC) ??? Disease of thyroid gland ??? Hypertension Negative unless otherwise noted SURGICAL HISTORY Past Surgical History: Procedure Laterality Date ??? BREAST SURGERY Bilateral ??? KNEE SURGERY Right ??? REMOVAL OF OVARY(S) Left ??? UPPER ARM/ELBOW SURGERY UNLISTED Right Negative unless otherwise noted CURRENT MEDICATIONS Current Facility-Administered Medications: ??? cefTRIAXone (ROCEPHIN) 1 g in sodium chloride 0.9 % 50 mL IVPB, 1 g, Intravenous, Once, CARLOS Arnett ??? insulin regular (NOVOLIN R/HUMULIN R) injection 6 Units, 6 Units, Intravenous, Once, CARLOS Ferris ??? sodium chloride 0.9% bolus infusion SOLN 500 mL, 500 mL, Intravenous, BOLUS (ONCE), CARLOS Ferris, 500 mL at 06/05/19 3946 Current Outpatient Medications: ??? acetaminophen 500 MG tablet, Take 1,000 mg by mouth daily as needed for Pain. Indications: Pain, Disp: , Rfl: ??? atorvastatin 80 MG tablet, Take 80 mg by mouth daily. Indications: High Amount of Cholesterol in the Blood, Disp: , Rfl: ??? chlorthalidone 25 MG tablet, Take 1 tablet (25 mg total) by mouth daily., Disp: 30 tablet, Rfl:0 ??? gabapentin 300 MG capsule, Take 1 capsule (300 mg total) by mouth 3 (three) times daily., Disp:90 capsule, Rfl: 0 ??? levothyroxine 100 MCG tablet, Take 100 mcg by mouth daily., Disp: , Rfl: ??? metFORMIN 850 MG tablet, Take 850 mg by mouth 2 (two) times daily with meals., Disp: , Rfl: ??? valsartan 160 MG tablet, Take 160 mg by mouth daily. Indications: High Blood Pressure Disorder,heart failure, Disp: , Rfl: ALLERGIES Allergies Allergen Reactions ??? Codeine Nausea and Vomiting FAMILY HISTORY No family history on file. Negative unless otherwise noted SOCIAL HISTORY Social History Socioeconomic History ??? [...] file Gets together: Not on file Attends denominational service: Not on file Active member of [...] Social History Narrative ??? Not on file Negative unless otherwise noted REVIEW OF SYSTEMS Review of Systems Neurological: Positive for weakness. All other systems reviewed and negative PHYSICAL EXAM VITAL SIGNS: Filed Vitals: 06/05/19 1355 06/05/19 1542 06/05/19 1600 BP: (!) 161/63 (!) 166/85 150/69 Pulse: 89 Resp: 18 18 18 Temp: 98.6 ??F (37 ??C) TempSrc: Oral SpO2: 100% 98% 99% Weight: 80.8 kg (178 lb 2.1 oz) Height: 5' 2 (1.575 m) Constitutional: Well developed, Well nourished, No acute distress, Non-toxic appearance. HENT: Normocephalic, Atraumatic, Bilateral external ears normal, Oropharynx moist, No oral exudates, Nose normal. Eyes: PERRL, EOMI, Conjunctiva normal, No discharge. Neck- Normal range of motion, No tenderness, Supple, No stridor. Respiratory: Normal breath sounds, No respiratory distress. Cardiovascular: Normal heart rate, Normal rhythm, no chest wall tenderness GI: Bowel sounds normal, Soft, No tenderness, No masses, No pulsatile masses. Musculoskeletal: Intact distal pulses, No edema, No tenderness, No cyanosis, No clubbing. Good range of motion in all major joints. No tenderness to palpation or major deformities noted. Back- No tenderness. Integument: ulceration of left lateral lower leg. No drainage. No erythema or induration. Lymphatic: No lymphadenopathy noted. Neurologic: Alert & oriented x 3, Normal motor function, Normal sensory function, No 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 noted. Psychiatric: Affect normal, Judgment normal, Mood normal. Pulse Oximetry Interpretation Saturation: 100% Oxygen Delivery: room air Interpretation: normal EKG (interpreted by ED provider) NSR with no ischemic changes 84bpm Interpreted by CARLOS Mcmillan DDX: Hyperglycemia, UTI, DKA, electrolyte disturbance, infection Pertinent Labs: Results for orders placed or performed during the hospital encounter of 06/05/19 URINALYSIS WI REFLEX TO CULTURE Result Value Ref Range Specimen Type URINE CLEAN CATCH COLOR (U) YELLOW TRANSPARENCY CLOUDY Specific [place] (U) 1.017 1.001 - 1.030 U PH 7.0 5.0 - 9.0 LEUKOCYTE ESTERASE LARGE (A) NEGATIVE NITRITES NEGATIVE NEGATIVE PROTEIN(U) 100 (H) <30 MG/DL URINE GLUCOSE >500 (A) NEGATIVE MG/DL U KETONES NEGATIVE NEGATIVE MG/DL UROBILINOGEN NEGATIVE NEGATIVE MG/DL BILIRUBIN (U) NEGATIVE NEGATIVE MG/DL BLOOD LARGE (A) NEGATIVE CULTURE & SENSITIVITY INDICATED? SPECIMEN SETUP FOR CULTURE SQUAMOUS EPITHELIALS FEW /LPF WBC/HPF >100 (H) <6 /HPF WBC Clumps PRESENT RBC/HPF >100 (H) <6 /HPF CBC W/DIFF AUTOMATED Result Value Ref Range WBC 7.2 4.5 - 11.0 x10'3/uL RBC 3.14 (L) 4.20 - 5.40 x10'6/uL HGB 9.2 (L) 12.0 - 16.0 G/DL HCT 28.3 (L) 38.0 - 48.0 % MCV 90.1 81.0 - 99.0 FL MCH 29.3 27.0 - 31.0 PG MCHC 32.5 32.0 - 36.0 G/DL RDW 14.3 11.5 - 14.5 % PLT 304 130 - 400 x10'3/uL MPV 10.0 9.3 - 12.2 FL DIFFERENTIAL TYPE AUTOMATED DIFFERENTIAL NEUTROPHILS 66.8 % LYMPHOCYTES 19.6 % MONOCYTES 10.3 % EOSINOPHILS 2.0 % BASOPHILS 0.7 % IMMATURE GRANS 0.6 % ABS. NEUTROPHILS TOTAL 4.79 1.80 - 7.70 x10'3/uL ABS. LYMPHOCYTES 1.40 1.00 - 4.80 x10'3/uL ABS. MONOCYTES 0.74 0.24 - 0.86 x10'3/uL ABS. EOSINOPHILS 0.14 0.04 - 0.36 x10'3/uL ABS. BASOPHILS 0.05 0.01 - 0.08 x10'3/uL ABS. IMMATURE GRANULOCYTES 0.04 0.00 - 0.49 x10'3/uL COMPREHENSIVE METABOLIC PANEL Result Value Ref Range GLUCOSE 446 (HH) 70 - 99 MG/DL BUN 23 (H) 7 - 18 MG/DL CREATININE S/P/B 1.19 (H) 0.55 - 1.02 MG/DL SODIUM 131 (L) 136 - 145 MMOL/L POTASSIUM 4.3 3.5 - 5.1 MMOL/L CHLORIDE S/P/B 96 (L) 100 - 108 MMOL/L CO2 29.9 21 - 32 MMOL/L CALCIUM 8.4 (L) 8.5 - 10.1 MG/DL TOTAL BILIRUBIN S/P/B 0.8 0.2 - 1.2 MG/DL TOTAL PROTEIN 8.1 6.4 - 8.2 G/DL ALBUMIN S/P/B 3.1 (L) 3.4 - 5.0 G/DL AST 23 15 - 37 U/L ALT 30 14 - 55 U/L ALK PHOS 70 50 - 136 U/L ANION GAP 5.1 5 - 15 MMOL/L BUN CREATININE RATIO 19.3 6 - 26 A/G RATIO 0.6 (L) 1.0 - 2.0 RATIO eGFR Non-Afr. Amer. 48 (L) >90 ML/MIN/1.73 M2 eGFR Afr. Amer. 56 (L) >90 ML/MIN/1.73 M2 LACTIC ACID Result Value Ref Range LACTIC ACID 1.7 0.4 - 2.0 MMOL/L BLOOD GAS, VENOUS, W/LACTATE Result Value Ref Range TIME TEST WAS PERFORMED: 1,616 SAMPLE TYPE VENOUS TECH CODE 525,366 PH VENOUS 7.38 7.32 - 7.42 PC02 VENOUS 56.8 (H) 40 - 50 MMHG PO2 VENOUS 33.0 30 - 50 MM HG BICARB-VENOUS 33.7 (H) 24 - 28 MMOL/L TCO2 35.4 25 - 40 MMOL/L VENOUS BASE EXCESS 7.4 (H) 0 - 2 MMOL/L HEMOGLOBIN, BLOOD GAS 8.9 (L) 12.0 - 16.0 G/DL % O2 HEMOGLOBIN,VENOUS 57.4 (LL) >65 % Carbon Monoxide/COHB 1.5 <3 % Methemoglobin/METHB 0.8 <3 % O2 CONTENT 7.2 (L) 11.0 - 16.0 VOL% LACTIC ACID 1.5 0.0 - 2.2 MMOL/L THYROID STIM HORMONE, TSH Result Value Ref Range TSH 13.300 (H) 0.358 - 3.74 uIU/ML POCT glucose Result Value Ref Range GLUCOSE POC 449 (HH) 70 - 99 mg/dL POCT glucose Result Value Ref Range WHOLE BLOOD GLUCOSE 406 (A) 70 - 100 mg/dL POCT glucose Result Value Ref Range GLUCOSE POC 406 (HH) 70 - 99 mg/dL POCT KETONES Result Value Ref Range KETONES: 0.1 0.0 - 0.5 mmol/L RADIOLOGY XR CHEST PORTABLE Final Result by User, [id number] (06/04 2269) Examination: Chest x-ray 1 view Exam date/time: 06/05/2019 3:58 PM Reason For Exam: weakness Comparison: Old radiographs are from March 2010 Technique: Upright AP view of the chest demonstrated. Findings: Heart size is borderline. Mediastinum shows small calcifications in the aortic arch. Chronic large calcified granuloma in the right paratracheal region. In the left upper lobe there is a bandlike density which may [...] of the lungs show no focal infiltrates. HEAD WO CON Final Result by User, [id number] (06/04 2360) CT OF THE BRAIN WITHOUT CONTRAST INDICATION: [...] studies. FINDINGS: Images are somewhat compromised due to motion. The posterior fossa structures show mild atrophy [...] abnormalities. Mild atrophy with chronic ischemic changes. GIVEN IN ER: Medications sodium chloride 0.9% bolus infusion SOLN 500 mL (500 mLs Intravenous New Bag 06/05/19 165) cefTRIAXone (ROCEPHIN) 1 g in sodium chloride 0.9 % 50 mL IVPB (has no administration in time range) insulin regular (NOVOLIN R/HUMULIN R) injection 6 Units (has no administration in time range) insulin regular (NOVOLIN R/HUMULIN R) injection 4 Units (4 Units Intravenous Given 06/05/191656) ED COURSE & MEDICAL DECISION MAKING Pertinent Labs & Imaging studies reviewed. (See chart for details) I discussed the pt's case with dr. mcgovern ED Course as of Jun 04 1657 Wed Jun 05, 2019 1531 Pt was initially talkative with no complaints. Pt now is more lethargic - will respond with sternal rub but pt goes back to sleep immediately. Pt still A&Ox3. Will obtain VBG and CT head. [MP] 1649 CT head neg. UA does show UTI. IV rocephin given in ER with 500cc NS and 4units of IV insulin. [MP] [address] Padilla. Would like additional 6u of insulin (total of 10u). Will put in for accuchecks. Accepts admission. [MP] ED Course User Index [MP] CARLOS Ferris Previous records were reviewed ? DATE: 06/05/2019 4:58 PM PATIENT: Iris Pascual ???Case was discussed with the following physician who has accepted the admission: ???ADMITTING PHYSICIAN: dr. padilla ???ADMISSION BED TYPE: med ???CONSULTANTS: ???1. ???IMPRESSION: ???1. UTI 2. Hyperglycemia 3. weakness ???PLAN: ???1. Iv insulin, SS consult ???2. Transition orders are entered. Note that analgesic and antiemetic orders, if entered, are scheduled to in 24 hrs. Also, additional medications, including antibiotics, will be entered by the admitting physician. CARLOS Ferris PA 06/05/19 1658 Cosigned by Jose Mcgovern MD at 06/09/2019 2:53 PM CDT * Bronwyn Mejia RN - 06/05/2019 1:57 PM CDT Pt arrived by ems from home reports weakness over the past week more on left side than right. Per ems pt family states they dont want pt returned home upon discharge and would like [facility]. Ems reports high blood sugar. Pt reports she used to take metformin but stopped over a year ago. Pt denies abuse or neglect at home but reports she is left all day alone and unable to care for herself. Bronwyn Mejia RN * Brenda Coon RN - 06/05/2019 1:41 PM CDT Bed: 12 Expected date: Expected time: Means of arrival: Ambulance - [facility] Comments: [id number] documented in this encounter Plan of Treatment Not on file documented as of this encounter Procedures Procedure Name Priority Date/Time Associated Diagnosis Comments POCT GLUCOSE - CHONG DOCKED DEVICE Routine 06/07/2019 11:27 AM CDT BASIC METABOLIC PANEL Routine 06/07/2019 6:09 AM CDT POCT GLUCOSE - CHONG DOCKED DEVICE Routine 06/07/2019 5:50 AM CDT POCT GLUCOSE - CHONG DOCKED DEVICE Routine 06/06/2019 8:36 PM CDT POCT GLUCOSE - CHONG DOCKED DEVICE Routine 06/06/2019 4:07 PM CDT POCT GLUCOSE - CHONG DOCKED DEVICE Routine 06/06/2019 11:34 AM CDT POCT GLUCOSE - CHONG DOCKED DEVICE Routine 06/06/2019 7:20 AM CDT BASIC METABOLIC PANEL Routine 06/06/2019 7:07 AM CDT CBC W/DIFF AUTOMATED Routine 06/06/2019 7:07 AM CDT THYROXINE, FREE (FT4) Routine 06/06/2019 7:07 AM CDT THYROID STIM HORMONE TSH Routine 06/06/2019 7:07 AM CDT POCT GLUCOSE - CHONG DOCKED DEVICE Routine 06/06/2019 6:12 AM CDT POCT GLUCOSE - CHONG DOCKED DEVICE Routine 06/05/2019 11:46 PM CDT POCT GLUCOSE - CHONG DOCKED DEVICE Routine 06/05/2019 9:03 PM CDT POCT GLUCOSE - CHONG DOCKED DEVICE Routine 06/05/2019 7:15 PM CDT POCT BEDSIDE BLOOD GLUCOSE STAT 06/05/2019 5:55 PM CDT POCT GLUCOSE - CHONG DOCKED DEVICE Routine 06/05/2019 5:54 PM CDT POCT GLUCOSE - CHONG DOCKED DEVICE STAT 06/05/2019 4:17 PM CDT POCT GLUCOSE - CHONG DOCKED DEVICE Routine 06/05/2019 4:15 PM CDT BLOOD GAS, VENOUS, W/LACTATE STAT 06/05/2019 4:15 PM CDT XR CHEST PORTABLE STAT 06/05/2019 4:[address] HEAD WO CON STAT 06/05/2019 3:54 PM CDT URINALYSIS WI REFLEX TO CULTURE STAT 06/05/2019 3:42 PM CDT URINE BACTERIA CULTURE Routine 0 3:42 PM CDT POCT KETONES Routine 06/05/2019 3:32 PM CDT ECG 12-LEAD STAT 06/05/2019 2:03 PM CDT COMPREHENSIVE METABOLIC PANEL STAT 06/05/2019 1:54 PM CDT LACTIC ACID TIMED 06/05/2019 1:54 PM CDT CBC W/DIFF AUTOMATED STAT 06/05/2019 1:54 PM CDT THYROID STIM HORMONE TSH Routine 06/05/2019 1:54 PM CDT MAGNESIUM Routine 06/05/2019 1:54 PM CDT POCT GLUCOSE - CHONG DOCKED DEVICE Routine 06/05/2019 1:47 PM CDT documented in this encounter Results * (ABNORMAL) POCT glucose (06/07/2019 11:27 AM CDT) GLUCOSE POC 246(H) 70 - 99 mg/dL 06/07/2019 11:29 AM CDT [facility] ORDERS INTERFACE 06/07/2019 11:2 7 AM CDT us Loraine Ordoñez MD POCT ORDERABLES - GILMA CE Final Result [facility] ORDERS INTERFACE US * (ABNORMAL) BASIC METABOLIC PANEL (06/07/2019 6:09 AM CDT) GLUCOSE 159(H) 70 - 99 MG/DL 06/07/2019 7:32 AM CDT [facility] BUN 21(H) 7 - 18 MG/DL 06/07/2019 7:[address] [facility] CREATININE S/P/B 0.92 0.55 - 1.02 MG/DL 06/07/2019 7:[address] [facility] SODIUM S/P/B 137 136 - 145 MMOL/L 06/07/2019 7:[address] [facility] POTASSIUM S/P/B 3.9 3.5 - 5.1 MMOL/L 06/07/2019 7:[address] [facility] CHLORIDE S/P/B 101 100 - 108 MMOL/L 06/07/2019 7:[address] [facility] CO2 30.5 21 - 32 MMOL/L 06/07/2019 7:[address] [facility] CALCIUM S/P/B 8.6 8.5 - 10.1 MG/DL 06/07/2019 7:[address] [facility] ANION GAP 5.5 5 - 15 MMOL/L 06/07/2019 7:[address] [facility] BUN CREATININE RATIO 22.9 6 - 26 06/07/2019 7:[address] [facility] EGFR NON-AFR. AMER. 66(L) >90 ML/MIN/1.7 3 M2 06/07/2019 7:[address] [facility] EGFR AFR. AMER. 76(L) >90 ML/MIN/1.7 3 M2 06/07/2019 7:[address] [facility] Comment: NOTE: eGFR is not calculated for patients <18 years of age. This is an estimated GFR (CKD EPI) and should not be used for calculating drug doses. 06/07/2019 6:09 AM CDT us Gladys Padilla MD LABORATORY Final Result [facility] [address] [place] [address], [place] [phone] * (ABNORMAL) POCT glucose (06/07/2019 5:50 AM CDT) GLUCOSE POC 185(H) 70 - 99 mg/dL 06/07/2019 5:53 AM CDT [facility] ORDERS INTERFACE 06/07/2019 5:50 AM CDT us Loraine Ordoñez MD POCT ORDERABLES - GILMA CE Final Result Performing Organization Address City/[facility]/ZIP Co de Phone Number [facility] ORDERS INTERFACE US * (ABNORMAL) POCT glucose (06/06/2019 8:36 PM CDT) GLUCOSE POC 233(H) 70 - 99 mg/dL 06/06/2019 8:41 PM CDT [facility] ORDERS INTERFACE 06/06/2019 8:36 PM CDT us Loraine Ordoñez MD POCT ORDERABLES - GILMA CE Final Result Performing Organization Address City/[facility] Co de Phone Number [facility] ORDERS INTERFACE US * (ABNORMAL) POCT glucose (06/06/2019 4:07 PM CDT) GLUCOSE POC 162(H) 70 - 99 mg/dL 06/06/2019 4:11 PM CDT [facility] ORDERS INTERFACE 06/06/2019 4:07 PM CDT us Loraine Ordoñez MD POCT ORDERABLES - GILMA CE Final Result [facility] ORDERS INTERFACE US * (ABNORMAL) POCT glucose (06/06/2019 11:34 AM CDT) GLUCOSE POC 200(H) 70 - 99 mg/dL 06/06/2019 11:53 AM CDT [facility] ORDERS INTERFACE 06/06/2019 11:3 4 AM CDT us Loraine Ordoñez MD POCT ORDERABLES - GILMA CE Final Result [facility] ORDERS INTERFACE US * POCT glucose (06/06/2019 7:20 AM CDT) GLUCOSE POC 93 70 - 99 mg/dL 06/06/2019 7:24 AM CDT [facility] ORDERS INTERFACE 06/06/2019 7:20 AM CDT us Loraine Ordoñez MD POCT ORDERABLES - GILMA CE Final Result [facility] ORDERS INTERFACE US * (ABNORMAL) BASIC METABOLIC PANEL (06/06/2019 7:07 AM CDT) GLUCOSE 74 70 - 99 MG/DL 06/06/2019 8:[address] [facility] BUN 19(H) 7 - 18 MG/DL 06/06/2019 8:[address] [facility] CREATININE S/P/B 0.82 0.55 - 1.02 MG/DL 06/06/2019 8:[address] [facility] SODIUM S/P/B 138 136 - 145 MMOL/L 06/06/2019 8:[address] [facility] POTASSIUM S/P/B 4.0 3.5 - 5.1 MMOL/L 06/06/2019 8:[address] [facility] CHLORIDE S/P/B 103 100 - 108 MMOL/L 06/06/2019 8:[address] [facility] CO2 29.9 21 - 32 MMOL/L 06/06/2019 8:[address] [facility] CALCIUM S/P/B 8.0(L) 8.5 - 10.1 MG/DL 06/06/2019 8:[address] [facility] ANION GAP 5.1 5 - 15 MMOL/L 06/06/2019 8:[address] [facility] BUN CREATININE RATIO 23.1 6 - 26 06/06/2019 8:[address] [facility] EGFR NON-AFR. AMER. 76(L) >90 ML/MIN/1.7 3 M2 06/06/2019 8:[address] [facility] EGFR AFR. AMER. 88(L) >90 ML/MIN/1.7 3 M2 06/06/2019 8:[address] [facility] Comment: NOTE: eGFR is not calculated for patients <18 years of age. This is an estimated GFR (CKD EPI) and should not be used for calculating drug doses. 06/06/2019 7:07 AM CDT Gladys Padilla MD LABORATORY Final Result [facility] [address] [place] [id number], [place] [phone] * (ABNORMAL) THYROXINE, FREE (FT4) (06/06/2019 7:07 AM CDT) FREE T4 0.44(L) 0.76 - 1.46 NG/DL 06/06/2019 8:[address] [facility] 06/06/2019 7:07 AM CDT Gladys Padilla MD LABORATORY Final Result [facility] [address] [place] [address], [place] [phone] * (ABNORMAL) CBC W/DIFF AUTOMATED (06/06/2019 7:07 AM CDT) [facility] WBC 6.9 4.5 - 11.0 x10'3/uL 06/06/2019 7:[address] [facility] RBC 2.92(L) 4.20 - 5.40 x10'6/uL 06/06/2019 7:[address] [facility] HGB 8.6(L) 12.0 - 16.0 G/DL 06/06/2019 7:[address] [facility] HCT 26.9(L) 38.0 - 48.0 % 06/06/2019 7:[address] [facility] MCV 92.1 80.0 - 94.0 FL 06/06/2019 7:[address] [facility] MCH 29.5 27.0 - 31.0 PG 06/06/2019 7:[address] [facility] MCHC 32.0 32.0 - 36.0 G/DL 06/06/2019 7:[address] [facility] RDW 14.6(H) 11.5 - 14.5 % 06/06/2019 7:[address] [facility] PLT 295 130 - 400 x10'3/uL 06/06/2019 7:[address] [facility] MPV 9.5 9.3 - 12.2 FL 06/06/2019 7:[address] [facility] DIFFERENTIAL TYPE AUTOMATED DIFFERENTIAL 06/06/2019 7:[address] [facility] NEUTROPHILS % 70.2 % 06/06/2019 7:[address] [facility] LYMPHOCYTES % 18.0 % 06/06/2019 7:[address] [facility] MONOCYTES % 8.2 % 06/06/2019 7:[address] [facility] EOSINOPHILS 2.3 % 06/06/2019 7:[address] [facility] BASOPHILS 0.9 % 06/06/2019 7:[address] [facility] IMMATURE GRANS % 0.4 % 06/06/19 20 7:[address] [facility] ABS. NEUTROPHILS TOTAL 4.82 1.80 - 7.70 x10'3/uL 06/06/2019 7:[address] [facility] ABS. LYMPHOCYTES 1.24 1.00 - 4.80 x10'3/uL 06/06/2019 7:[address] [facility] ABS. MONOCYTES 0.56 0.24 - 0.86 x10'3/uL 06/06/2019 7:[address] [facility] ABS. EOSINOPHILS 0.16 0.04 - 0.36 x10'3/uL 06/06/2019 7:[address] [facility] ABS. BASOPHILS 0.06 0.01 - 0.08 x10'3/uL 06/06/2019 7:[address] [facility] ABS. IMMATURE GRANULOCYTES 0.03 0.00 - 0.49 x10'3/uL 06/06/2019 7:[address] [facility] 06/06/2019 7:07 AM CDT us Gladys Padilla MD LABORATORY Final Result [facility] [address] [place] [address], * (ABNORMAL) THYROID STIM HORMONE, TSH (06/06/2019 7:07 AM CDT) TSH 17.600(H) 0.358 - 3.74 uIU/ML 06/06/2019 8:[address] [facility] Comment: HIGH DOSES OF BIOTIN MAY INTERFERE WITH THIS TEST RESULT. CORRELATION TO CLINICAL HISTORY AND PRESENTATION RECOMMENDED. 06/06/2019 7:07 AM CDT Gladys Padilla MD LABORATORY Final Result Performing Organization Address City/[facility]/ZIP Co de Phone Number [facility] [address] [place] [address], [place] [phone] * (ABNORMAL) POCT glucose (06/06/2019 6:12 AM CDT) GLUCOSE POC 58(L) 70 - 99 mg/dL 06/06/2019 6:49 AM CDT [facility] ORDERS INTERFACE 06/06/2019 6:12 AM CDT us Loraine Ordoñez MD POCT ORDERABLES - GILMA CE Final Result Performing Organization Address [facility]/ZIP Co de Phone Number [facility] ORDERS INTERFACE US * (ABNORMAL) POCT glucose (06/05/2019 11:46 PM CDT) GLUCOSE POC 220(H) 70 - 99 mg/dL 06/05/2019 11:54 PM CDT [facility] ORDERS INTERFACE 06/05/2019 11:4 6 PM CDT us Gladys Padilla MD POCT ORDERABLES - DEVICE Final Result [facility] ORDERS INTERFACE US * (ABNORMAL) POCT glucose (06/05/2019 9:03 PM CDT) GLUCOSE POC 308(H) 70 - 99 mg/dL 06/05/2019 9:05 PM CDT [facility] ORDERS INTERFACE 06/05/2019 9:03 PM CDT us Gladys Padilla MD POCT ORDERABLES - DEVICE Final Result [facility] ORDERS INTERFACE US * (ABNORMAL) POCT glucose (06/05/2019 7:15 PM CDT) GLUCOSE POC 342(H) 70 - 99 mg/dL 06/05/2019 7:17 PM CDT [facility] ORDERS INTERFACE 06/05/2019 7:15 PM CDT us Gladys Padilla MD POCT ORDERABLES - DEVICE Final Result Performing Organization Address City/[facility]/ZIP Co de Phone Number [facility] ORDERS INTERFACE US * (ABNORMAL) Bedside Blood Glucose (06/05/2019 5:55 PM CDT) GLUCOSE WHOLE BLOOD 346(A) 70 - 100 mg/dL Gladys Padilla MD NURSING TREATMENT ORDERABLES - ONCE OR INTERVALS Final Result * (ABNORMAL) POCT glucose (06/05/2019 5:54 PM CDT) GLUCOSE POC 342(H) 70 - 99 mg/dL 06/05/2019 5:55 PM CDT [facility] ORDERS INTERFACE 06/05/2019 5:54 PM CDT us Gladys Padilla MD POCT ORDERABLES - DEVICE Final Result [facility] ORDERS INTERFACE US * (ABNORMAL) POCT glucose (06/05/2019 4:17 PM CDT) GLUCOSE WHOLE BLOOD 406(A) 70 - 100 mg/dL [facility] us Peterson GONZALEZ POCT ORDERABLES - DEVICE F inal Result [facility] [address] [place] [address], [place] [phone] * (ABNORMAL) POCT glucose (06/05/2019 4:15 PM CDT) GLUCOSE POC 406(HH) 70 - 99 mg/dL 06/05/2019 4:25 PM CDT [facility] ORDERS INTERFACE 06/05/2019 4:15 PM CDT us Peterson GONZALEZ POCT ORDERABLES - DEVICE F inal Result [facility] ORDERS INTERFACE US * (ABNORMAL) BLOOD GAS, VENOUS, W/LACTATE (06/05/2019 4:15 PM CDT) Pathologist [facility] TIME TEST WAS PERFORMED: 1616 06/05/2019 4:[address] [facility] SAMPLE TYPE VENOUS 06/05/2019 4:[address] [facility] POWER SUPERINTENDENT CODE [phone] 06/05/2019 4:[address] [facility] PH VENOUS 7.38 7.32 - 7.42 06/05/2019 4:[address] [facility] PCO2 VENOUS 56.8(H) 40 - 50 MMHG 06/05/2019 4:[address] [facility] PO2 VENOUS 33.0 30 - 50 MM HG 06/05/2019 4:[address] [facility] BICARB VENOUS 33.7(H) 24 - 28 MMOL/L 06/05/2019 4:[address] [facility] TCO2 35.4 25 - 40 MMOL/L 06/05/2019 4:[address] [facility] VENOUS BASE EXCESS 7.4(H) 0 - 2 MMOL/L 06/05/2019 4:[address] [facility] HEMOGLOBIN BLOOD GAS 8.9(L) 12.0 - 16.0 G/DL 06/05/2019 4:[address] [facility] % O2 HEMOGLOBIN VENOUS 57.4(LL) >65 % 06/05/2019 4:[address] [facility] Comment: Successful Call: [facility] called 06/05/2019 04:18 PM to PETERSON MCMILLAN PA ( /PETERSON MCMILLAN PA) by [id number]. [place] MONOXIDE/COHB 1.5 <3 % 06/05/2019 4:[address] [facility] METHEMOGLOBIN/M ETHB 0.8 <3 % 06/05/2019 4:[address] [facility] O2 CONTENT 7.2(L) 11.0 - 16.0 VOL% 06/05/2019 4:[address] [facility] LACTIC ACID VENOUS 1.5 0.0 - 2.2 MMOL/L 06/05/2019 4:[address] [facility] 06/05/2019 4:15 PM CDT [facility] Final Resu lt [facility] [address] [place] [address], [place] [phone] * XR CHEST PORTABLE (06/05/2019 4:10 PM CDT) Anatomical Region Laterality Modality Chest Radiographic Syvlia ging 06/05/2019 4:13 PM CDT Impressions 06/05/2019 4:19 PM CDT =====IMPRESSION:===== Borderline cardiomegaly and chronic calcified granuloma. In the left upper lobe there is a bandlike linear density which may be atelectasis and scar tissue rather than acute inflammation. The remainder of the lungs show no focal infiltrates. Narrative 06/05/2019 4:19 PM CDT Examination: Chest x-ray 1 view Exam date/time: 06/05/2019 3:58 PM Reason For Exam: ??weakness ? Comparison: Old radiographs are from March 2010 Technique: Upright AP view of the chest demonstrated. Findings: ??Heart size is borderline. Mediastinum shows small calcifications in the aortic arch. Chronic large calcified granuloma in the right paratracheal region. In the left upper lobe there is a bandlike density which may represent atelectasis and scar tissue which is different than before. In the remainder of the lungs there are no focal infiltrates. Please correlate clinically. If the patient has any respiratory symptoms follow-up chest radiographs recommended in one to 2 weeks to reevaluate the left upper lobe. Osseous structures are intact. Procedure Note Gary Erwin MD - 06/05/2019 Examination: Chest x-ray 1 view Exam date/time: 06/05/2019 3:58 PM Reason For Exam: weakness Comparison: Old radiographs are from March 2010 Technique: Upright AP view of the chest demonstrated. Findings: Heart size is borderline. Mediastinum shows smallcalcifications in the aortic arch. Chronic large calcified granuloma in the right paratracheal region. In the left upper lobe there is a bandlike density which may represent atelectasis and scar tissue which is different than before. In the remainder of the lungs there are no focal infiltrates. Please correlate clinically. If the patient has any respiratory symptoms follow-up chest radiographs recommended in one to 2 weeks to reevaluatethe left upper lobe. Osseous structures are intact. =====IMPRESSION:===== Borderline cardiomegaly and chronic calcified granuloma. In the left upper lobe there is a bandlike linear density which may be atelectasis and scar tissue rather than acute inflammation. Theremainder of the lungs show no focal infiltrates. [facility] Final Resu lt * CT HEAD WO CON (06/05/2019 3:54 PM CDT) Anatomical Region Laterality Modality Head Computed Tomogra phy 06/05/2019 3:56 PM CDT Impressions 06/05/2019 3:58 PM CDT IMPRESSION: Limited study due to motion. No evidence of intracranial hemorrhage or other definite acute abnormalities. Mild atrophy with chronic ischemic changes. Narrative 06/05/2019 3:[address] OF THE BRAIN WITHOUT CONTRAST INDICATION: Confusion/delirium, altered LOC, unexplained ?? TECHNIQUE: CT of the brain was performed without contrast. ??A dose lowering technique was used for this procedure, which may include, but is not limited to, dose reduction techniques, automated exposure control, the use of a iterative reconstruction, and ALARA (as low as reasonably achievable)/image gently techniques. . COMPARISON: There are no prior studies. FINDINGS: Images are somewhat compromised due to motion. The posterior fossa structures show mild atrophy [...] of motion. No definite acute bony abnormalities. Procedure Note Gary Erwin MD - 06/05/2019 CT OF THE BRAIN WITHOUT CONTRAST INDICATION: Confusion/delirium, altered LOC, unexplained TECHNIQUE: CT of the brain was performed without contrast. A doselowering technique was used for this procedure, which may include, but is not limited to, dose reduction techniques, automated exposure control, theuse of a iterative reconstruction, and ALARA (as low as reasonably achievable)/image gently techniques. . COMPARISON: There are no prior studies. FINDINGS: Images are somewhat compromised due to motion. The posterior fossa structures show mild atrophy with chronic ischemic changes. In theregion of the basal ganglia calcifications which appear chronic. The temporal fossa and the frontal fossa is unremarkable. There is mild atrophy with chronic ischemic changes. No acute extra-axial fluid. There is nomidline shift. The detail of the osseous structures is somewhat limited because ofmotion. No definite acute bony abnormalities. IMPRESSION: Limited study due to motion. No evidence of intracranial hemorrhage or other definite acute abnormalities. Mild atrophy with chronic ischemic changes. Peterson GONZALEZ CT Final Resu lt * CULTURE URINE (06/05/2019 3:42 PM CDT) SPEC DESCRIPTION URINE CLEAN CATCH 06/05/2019 4:[address] [facility] SPECIAL REQUESTS NO SPECIAL REQUEST 06/05/2019 4:[address] [facility] CULTURE RESULT NO GROWTH 2 DAYS 06/07/2019 8:[address] [facility] URINE SPECIMEN OBTAINED BY CLEAN CATCH PROCEDURE / Unknown 06/05/2019 3:42 PM CDT 06/05/2019 4:24 PM CDT Peterson GONZALEZ MICROBIOLOGY - GENERAL ORD ERABLES Final Result [facility] [address] [place] [address], [place] [phone] * (ABNORMAL) URINALYSIS WI REFLEX TO CULTURE (06/05/2019 3:42 PM CDT) SPECIMEN TYPE URINE CLEAN CATCH 06/05/2019 3:[address] [facility] COLOR (U) YELLOW 06/05/2019 4:[address] [facility] TRANSPARENCY CLOUDY 06/05/2019 4:[address] [facility] SPECIFIC GRAVITY (U) 1.017 1.001 - 1.030 06/05/2019 4:[address] [facility] U PH 7.0 5.0 - 9.0 06/05/2019 4:[address] [facility] LEUKOCYTES (U) LARGE(A) NEGATIVE 06/05/2019 4:[address] [facility] NITRITES NEGATIVE NEGATIVE 06/05/2019 4:[address] [facility] PROTEIN (U) 100(H) <30 MG/DL 06/05/2019 4:[address] [facility] URINE GLUCOSE >500(A) NEGATIVE MG/DL 06/05/2019 4:[address] [facility] KETONES MG/DL (U) NEGATIVE NEGATIVE MG/DL 06/05/2019 4:[address] [facility] UROBILINOGEN NEGATIVE NEGATIVE MG/DL 06/05/2019 4:[address] [facility] BILIRUBIN (U) NEGATIVE NEGATIVE MG/DL 06/05/2019 4:[address] [facility] BLOOD (U) LARGE(A) NEGATIVE 06/05/2019 4:[address] [facility] CULTURE & SENSITIVITY INDICATED? SPECIMEN SETUP FOR CULTURE 06/05/2019 4:[address] [facility] SQUAMOUS EPITHELIALS FEW /LPF 06/05/2019 4:[address] [facility] WBC/HPF >100(H) <6 /HPF 06/05/2019 4:[address] [facility] WBC CLUMPS PRESENT 06/05/2019 4:[address] [facility] RBC/HPF >100(H) <6 /HPF 06/05/2019 4:[address] [facility] URINE SPECIMEN OBTAINED BY CLEAN CATCH PROCEDURE / Unknown 06/05/2019 3:42 PM CDT us Peterson Mcmillan PA URINE ORDERABLES Final Res ult [facility] [address] [place] [address], * POCT KETONES (06/05/2019 3:32 PM CDT) KETONES S/P/B 0.1 0.0 - 0.5 mmol/L 06/05/2019 3:33 PM CDT [facility] ORDERS INTERFACE 06/05/2019 3:32 PM CDT us Peterson GONZALEZ POINT OF CARE TEST ORDERAB LES Final Result [facility] ORDERS INTERFACE US * ECG 12 lead (06/05/2019 2:03 PM CDT) 06/05/2019 2:03 PM CDT Narrative [facility] ([facility] - 06/05/2019 11:12 PM CDT ?[facility] [place] ? [address] ? Test Date: ?2019-06-05 Pat Name: ? IRIS PASCUAL ? Department: ? Room: ? B437 Gender: ? Female ? 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 ND : ?1955 ? Requested By: PETERSON MCMILLAN Order Number: [id number] ? Reading MD: ?? Jevon Tovar ? Measurements Intervals ?[place]ket ? Rate: ? 84 ? P: ?56 ND: ? 144 ?QRS: ?-35 QRSD: ? 97 ? T: ?59 QT: ? 401 ? QTc: ?474 ? Interpretive Statements SINUS RHYTHM MARKED LEFT AXIS DEVIATION SEPTAL MYOCARDIAL INFARCTION, PROBABLY OLD Left Anterior Fascicular Block Non-specific ST & T wave abnormality Compared to ECG 05/13/2019 11:54:07 Left-axis deviation now present Myocardial infarct finding still present No ischemic changes Peterson Mcmillan PA-C CRITICAL ALERT ISSUED ON 06-05-2019 14:08:14 Procedure Note Jevon Tovar MD - 06/05/[address] Test Date: 2019-06-05 Pat Name: IRIS PASCUAL Department: Room: [facility] Gender: Female Television Repairman: DIONICIO : 1955 Requested By: PETERSON MCMILLAN Order Number: [id number] Reading MD: Jevon Tovar Measurements Intervals Burket Rate: 84 P: 56 ND: 144 QRS: -35 QRSD: 97 T: 59 QT: 401 QTc: 474 Interpretive Statements SINUS RHYTHM MARKED LEFT AXIS DEVIATION SEPTAL MYOCARDIAL INFARCTION, PROBABLY OLD Left Anterior Fascicular Block Non-specific ST & T wave abnormality Compared to ECG 05/13/2019 11:54:07 Left-axis deviation now present Myocardial infarct finding still present No ischemic changes Peterson Mcmillan PA-C CRITICAL ALERT ISSUED ON 06-05-2019 14:08:14 Peterson GONZALEZ ECG ORDERABLES Final Resu lt Performing Organization Address [facility]/ZIP Co de Phone Number [facility] ([facility] * MAGNESIUM (06/05/2019 1:54 PM CDT) Pathologist [facility] MAGNESIUM 2.0 1.8 - 2.4 MG/DL 06/05/2019 6:[address] [facility] 06/05/2019 1:54 PM CDT Gladys Padilla MD LABORATORY Final Result Performing Organization Address [facility]/ZIP Co de Phone Number [facility] [address] [place] [address], [place] [phone] * (ABNORMAL) THYROID STIM HORMONE, TSH (06/05/2019 1:54 PM CDT) Pathologist [facility] TSH 13.300(H) 0.358 - 3.74 uIU/ML 06/05/2019 4:[address] [facility] Comment: HIGH DOSES OF BIOTIN MAY INTERFERE WITH THIS TEST RESULT. CORRELATION TO CLINICAL HISTORY AND PRESENTATION RECOMMENDED. 06/05/2019 1:54 PM CDT Peterson GONZALEZ LABORATORY Final Resu lt Performing Organization Address City/[facility]/ZIP Co de Phone Number [facility] [address] [place] [address], [place] [phone] * LACTIC ACID (06/05/2019 1:54 PM CDT) LACTIC ACID VENOUS 1.7 0.4 - 2.0 MMOL/L 06/05/2019 3:[address] [facility] 06/05/2019 1:54 PM CDT Peterson GONZALEZ LABORATORY Final Resu lt Performing Organization Address [facility]/ZIP Co de Phone Number [facility] [address] [place] [address], [place] [phone] * (ABNORMAL) COMPREHENSIVE METABOLIC PANEL (06/05/2019 1:54 PM CDT) GLUCOSE 446(HH) 70 - 99 MG/DL 06/05/2019 3:[address] [facility] Comment: AGATHA CALLED CRITICAL RESULTS AT [id number] TO AND READ BACK BY BRONWYN MEJIA BUN 23(H) 7 - 18 MG/DL 06/05/2019 3:[address] [facility] CREATININE S/P/B 1.19(H) 0.55 - 1.02 MG/DL 06/05/2019 3:[address] [facility] SODIUM S/P/B 131(L) 136 - 145 MMOL/L 06/05/2019 3:[address] [facility] POTASSIUM S/P/B 4.3 3.5 - 5.1 MMOL/L 06/05/2019 3:[address] [facility] CHLORIDE S/P/B 96(L) 100 - 108 MMOL/L 06/05/2019 3:[address] [facility] CO2 29.9 21 - 32 MMOL/L 06/05/2019 3:[address] [facility] CALCIUM S/P/B 8.4(L) 8.5 - 10.1 MG/DL 06/05/2019 3:[address] [facility] BILIRUBIN TOTAL S/P/B 0.8 0.2 - 1.2 MG/DL 06/05/2019 3:[address] [facility] Comment: THIS ASSAY IS NOT RECOMMENDED FOR PATIENTS UNDERGOING TREATMENT WITH ELTROMBOPAG DUE TO THE POTENTIAL FOR FALSELY ELEVATED RESULTS. TOTAL PROTEIN S/P/B 8.1 6.4 - 8.2 G/DL 06/05/2019 3:[address] [facility] ALBUMIN S/P/B 3.1(L) 3.4 - 5.0 G/DL 06/05/2019 3:[address] [facility] AST 23 15 - 37 U/L 06/05/2019 3:[address] [facility] ALT 30 14 - 55 U/L 06/05/2019 3:[address] [facility] ALKALINE PHOSPHATASE S/P/B 70 50 - 136 U/L 06/05/2019 3:[address] [facility] ANION GAP 5.1 5 - 15 MMOL/L 06/05/2019 3:[address] [facility] BUN CREATININE RATIO 19.3 6 - 26 06/05/2019 3:[address] [facility] A/G RATIO 0.6(L) 1.0 - 2.0 RATIO 06/05/2019 3:[address] [facility] EGFR NON-AFR. AMER. 48(L) >90 ML/MIN/1.7 3 M2 06/05/2019 3:[address] [facility] EGFR AFR. AMER. 56(L) >90 ML/MIN/1.7 3 M2 06/05/2019 3:[address] [facility] Comment: NOTE: eGFR is not calculated for patients <18 years of age. This is an estimated GFR (CKD EPI) and should not be used for calculating drug doses. 06/05/2019 1:54 PM CDT us Peterson GONZALEZ LABORATORY Final Resu lt [facility] [address] [place] [address], [place] [phone] * (ABNORMAL) CBC W/DIFF AUTOMATED (06/05/2019 1:54 PM CDT) WBC 7.2 4.5 - 11.0 x10'3/uL 06/05/2019 3:[address] [facility] RBC 3.14(L) 4.20 - 5.40 x10'6/uL 06/05/2019 3:[address] [facility] HGB 9.2(L) 12.0 - 16.0 G/DL 06/05/2019 3:[address] [facility] HCT 28.3(L) 38.0 - 48.0 % 06/05/2019 3:[address] [facility] MCV 90.1 81.0 - 99.0 FL 06/05/2019 3:[address] [facility] MCH 29.3 27.0 - 31.0 PG 06/05/2019 3:[address] [facility] MCHC 32.5 32.0 - 36.0 G/DL 06/05/2019 3:[address] [facility] RDW 14.3 11.5 - 14.5 % 06/05/2019 3:[address] [facility] PLT 304 130 - 400 x10'3/uL 06/05/2019 3:[address] [facility] MPV 10.0 9.3 - 12.2 FL 06/05/2019 3:[address] [facility] DIFFERENTIAL TYPE AUTOMATED DIFFERENTIAL 06/05/2019 3:[address] [facility] NEUTROPHILS % 66.8 % 06/05/2019 3:[address] [facility] LYMPHOCYTES % 19.6 % 06/05/2019 3:[address] [facility] MONOCYTES % 10.3 % 06/05/2019 3:[address] [facility] EOSINOPHILS 2.0 % 06/05/2019 3:[address] [facility] BASOPHILS 0.7 % 06/05/2019 3:[address] [facility] IMMATURE GRANS % 0.6 % 06/05/19 20 3:[address] [facility] ABS. NEUTROPHILS TOTAL 4.79 1.80 - 7.70 x10'3/uL 06/05/2019 3:[address] [facility] ABS. LYMPHOCYTES 1.40 1.00 - 4.80 x10'3/uL 06/05/2019 3:[address] [facility] ABS. MONOCYTES 0.74 0.24 - 0.86 x10'3/uL 06/05/2019 3:[address] [facility] ABS. EOSINOPHILS 0.14 0.04 - 0.36 x10'3/uL 06/05/2019 3:[address] [facility] ABS. BASOPHILS 0.05 0.01 - 0.08 x10'3/uL 06/05/2019 3:[address] [facility] ABS. IMMATURE GRANULOCYTES 0.04 0.00 - 0.49 x10'3/uL 06/05/2019 3:[address] [facility] 06/05/2019 1:54 PM CDT Peterson GONZALEZ LABORATORY Final Resu lt [facility] [address] [place] [address], * (ABNORMAL) POCT glucose (06/05/2019 1:47 PM CDT) [facility] GLUCOSE POC 449() 70 - 99 mg/dL 06/05/2019 1:49 PM CDT [facility] ORDERS INTERFACE 06/05/2019 1:47 PM CDT Peterson GONZALEZ POCT ORDERABLES - DEVICE F inal Result Performing Organization Address City/[facility]/ZIP Co de Phone Number [facility] ORDERS INTERFACE US documented in this encounter Visit Diagnoses Diagnosis Generalized weakness- Primary Other malaise and fatigue Weakness Other malaise and fatigue Hyperglycemia Other abnormal glucose UTI (urinary tract infection) Urinary tract infection, site not specified Hyperglycemia Other abnormal glucose documented in this encounter Administered Medications Inactive Administered Medications - up to 3 most recent administrations Medication Order MAR Action Action Date Dose Rate Site 0.9 % NaCl with KCl 20 mEq infusion at 75 mL/hr, Intravenous, Continuous, Starting on Mon06/05/19 at 1815, Until Chari 06/06/19 at 0854 New Bag 06/05/2019 8:19 PM CDT 75 mL/hr 75 mL/hr acetaminophen (TYLENOL) tablet 650 mg 650 mg, Oral, Every 4 hours PRN, Mild pain (Scale 1 - 3), Starting on Mon06/05/19 at 1802, Until Mon06/07/19 at 2048, Maximum dose of acetaminophen is 4000 mg from all sources in 24 hours. Given 06/07/2019 11:14 AM CDT 650 mg Given 06/06/2019 6:37 AM CDT 650 mg cefTRIAXone (ROCEPHIN) 1 g in sodium chloride 0.9 % 50 mL IVPB 1 g, Intravenous, at 100 mL/hr, Once, 1 dose, On Mon06/05/19 at 1645 New Bag 06/05/2019 5:38 PM CDT 1 g 100 mL/hr cefTRIAXone (ROCEPHIN) 1 g in sodium chloride 0.9 % 50 mL IVPB 1 g, Intravenous, at 100 mL/hr, Every 24 hours, First dose (after last reorder) on Chari 06/06/19 at 1800, Until Discontinued New Bag 06/06/2019 6:51 PM CDT 1 g 100 mL/hr heparin (porcine) injection 5,000 Units 5,000 Units, Subcutaneous, Every 12 hours scheduled (2 times per day), First dose on Mon06/05/19 at 2100, Until Discontinued Given 06/07/2019 8:44 AM CDT 5,000 Units Right Lower Abdomen Given 06/06/2019 9:14 PM CDT 5,000 Units L eft Upper Abdomen Given 06/06/2019 9:37 AM CDT 5,000 Units R ight Lower Abdomen insulin glargine (LANTUS) injection 10 Units 10 Units, Subcutaneous, Nightly at bedtime, First dose on Mon06/05/19 at 2130, Until Discontinued Given 06/06/2019 9:13 PM CDT 10 Units Right Lower Abdomen Given 06/05/2019 10:09 PM CDT 10 Units L eft Lower Abdomen insulin lispro (HUMALOG) injection 0-14 Units 0-14 Units, Subcutaneous, 3 times daily before meals, First dose on Mon06/05/19 at 1815, Until Discontinued, Blood Glucose (SENSITIVE Dosing): [Less than 70:? Initiate Hypoglycemia Standing Orders] [71-140: 0 units] [141-180: 2 units] [181-220: 4 units] [221-260: 6 units] [261-300: 8 units] [301-350: 10 units] [351-400: 12 units] [Greater than 400: 14 units and Call Physician] Given 06/07/2019 12:52 PM CDT 6 Units Right Lower Abdomen Given 06/07/2019 8:45 AM CDT 2 Units Le ft Lower Abdomen Given 06/06/2019 6:16 PM CDT 2 Units Le ft Lower Abdomen insulin lispro (HUMALOG) injection 0-7 Units 0-7 Units, Subcutaneous, Nightly at bedtime, First dose on Mon06/05/19 at 2100, Until Discontinued, Blood Glucose (SENSITIVE Dosing): [Less than 70:? Initiate Hypoglycemia Standing Orders] [71-180: ? 0 units] [181-220:? 2 units] [221-260:? 3 units] [261-300:? 4 units] [301-350:? 5 units] [351-400:? 6 units] [Greater than 400:? 7 units and Call Physician] Given 06/06/2019 9:14 PM CDT 3 Units Right Lower Abdomen Given 06/05/2019 10:10 PM CDT 5 Units L eft Lower Abdomen insulin regular (NOVOLIN R/HUMULIN R) injection 4 Units 4 Units, Intravenous, Once, 1 dose, On Mon06/05/19 at 1645, For sliding scale, activate Sliding Scale Insulin order set. Given 06/05/2019 4:57 PM CDT 4 Units insulin regular (NOVOLIN R/HUMULIN R) injection 6 Units 6 Units, Intravenous, Once, 1 dose, On Mon06/05/19 at 1700, For sliding scale, activate Sliding Scale Insulin order set. Given 06/05/2019 5:02 PM CDT 6 Units levothyroxine (SYNTHROID) tablet 50 mcg 50 mcg, Oral, Daily (levothyroxine), First dose (after last modification) on Mon06/06/19 at 0915, Until Discontinued, Avoid iron, calcium, and antacids within 4 hours of administration. Given 06/07/2019 6:02 AM CDT 50 mcg Given 06/06/2019 9:37 AM CDT 50 mcg ondansetron (ZOFRAN) injection 4 mg 4 mg, Intravenous, Every 8 hours PRN, Nausea, Vomiting, Starting on Mon06/05/19 at 1801, Until Mon06/07/19 at 2048, IV push over 2-5 minutes. sodium chloride 0.9% bolus infusion SOLN 500 mL 500 mL, Intravenous, Administer over 15 Minutes, Bolus (Once), 1 dose, On Mon06/05/19 at 1645 New Bag 06/05/2019 4:56 PM CDT 500 mLs documented in this encounter Active and Recently Administered Medications Times are shown in CDT. Scheduled Medication Order 06/05/2019 06/06/2019 06/07/2019 cefTRIAXone (ROCEPHIN) 1 g in sodium chloride 0.9 % 50 mL IVPB (COMPLETED) 1 g, Intravenous, at 100 mL/hr, Once, 1 dose, On Mon06/05/19 at 1645 1738 (New Bag - Provider: Bronwyn Mejia RN)1931 (Infusion Stop Time - Provider: Onelia Aquino RN - Comment: stopped in ER) cefTRIAXone (ROCEPHIN) 1 g in sodium chloride 0.9 % 50 mL IVPB 1 g, Intravenous, at 100 mL/hr, Every 24 hours, First dose (after last reorder) on Chari 06/06/19 at 1800, Until Discontinued 1850 (New Bag - Provider: Fela Lo RN)2101 (Infusion Stop Time - Provider: Joann Cotter RN) 1800 (Canceled Entry - Provider: Automatic Discharge Provider - Comment: Automatically canceled at discontinue of medication order) heparin (porcine) injection 5,000 Units(Linked Group 1) 5,000 Units, Subcutaneous, Every 12 hours scheduled (2 times per day), First dose on Mon06/05/19 at 2100, Until Discontinued 2019 (Given - Provider: Onelia Aquino RN) 09 (Given - Provider: Fela Lo RN)2113 (Given - Provider: Joann Cotter RN) 0844 (Given - Provider: Fela Lo RN) insulin glargine (LANTUS) injection 10 Units 10 Units, Subcutaneous, Nightly at bedtime, First dose on Mon06/05/19 at 2130, Until Discontinued 2208 (Given - Provider: Onelia Aquino RN) 2112 (Given - Provider: Joann Cotter, RN) insulin lispro (HUMALOG) injection 0-14 Units(Linked Group 2) 0-14 Units, Subcutaneous, 3 times daily before meals, First dose on Mon06/05/19 at 1815, Until Discontinued, Blood Glucose (SENSITIVE Dosing): [Less than 70:? Initiate Hypoglycemia Standing Orders] [71-140: 0 units] [141-180: 2 units] [181-220: 4 units] [221-260: 6 units] [261-300: 8 units] [301-350: 10 units] [351-400: 12 units] [Greater than 400: 14 units and Call Physician] 2018 (Given - Provider: Onelia Aquino RN) 0736 (Not Given - Provider: Majo Kumar RN - Reason: Order parameters not met)1229 (Given - Provider: Fela Lo RN)1816 (Given - Provider: Fela Lo RN) 0845 (Given - Provider: Fela Lo RN)1252 (Given - Provider: Fela Lo RN)1726 (Not Given - Provider: Loree Chappell RN - Reason: Other - Comment: d/c) insulin lispro (HUMALOG) injection 0-7 Units(Linked Group 2) 0-7 Units, Subcutaneous, Nightly at bedtime, First dose on Mon06/05/19 at 2100, Until Discontinued, Blood Glucose (SENSITIVE Dosing): [Less than 70:? Initiate Hypoglycemia Standing Orders] [71-180: ? 0 units] [181-220:? 2 units] [221-260:? 3 units] [261-300:? 4 units] [301-350:? 5 units] [351-400:? 6 units] [Greater than 400:? 7 units and Call Physician] 2209 (Given - Provider: Onelia Aquino RN) 2113 (Given - Provider: Joann Cotter, SPENCER) insulin regular (NOVOLIN R/HUMULIN R) injection 4 Units (COMPLETED) 4 Units, Intravenous, Once, 1 dose, On Mon06/05/19 at 1645, For sliding scale, activate Sliding Scale Insulin order set. 1657 (Given - Provider: Bronwyn Mejia RN) insulin regular (NOVOLIN R/HUMULIN R) injection 6 Units (COMPLETED) 6 Units, Intravenous, Once, 1 dose, On Mon06/05/19 at 1700, For sliding scale, activate Sliding Scale Insulin order set. 1702 (Given - Provider: Bronwyn Mejia RN) levothyroxine (SYNTHROID) tablet 50 mcg 50 mcg, Oral, Daily (levothyroxine), First dose (after last modification) on Mon06/06/19 at 0915, Until Discontinued, Avoid iron, calcium, and antacids within 4 hours of administration. 0937 (Given - Provider: Fela Lo RN) 0602 (Given - Provider: Joann Cotter RN) sodium chloride 0.9% bolus infusion SOLN 500 mL (COMPLETED) 500 mL, Intravenous, Administer over 15 Minutes, Bolus (Once), 1 dose, On Mon06/05/19 at 1645 1656 (New Bag - Provider: Bronwyn Mejia RN)1931 (Infusion Stop Time - Provider: Onelia Aquino RN - Comment: stopped in ER) Continuous Medication Order 06/05/2019 06/06/2019 06/07/2019 0.9 % NaCl with KCl 20 mEq infusion (CANCELED) at 75 mL/hr, Intravenous, Continuous, Starting on Mon06/05/19 at 1815, Until Mon06/06/19 at 0854 2019 (New Bag - Provider: Onelia Aquino RN) 1137 (Infusion Stop Time - Provider: Majo Kumar RN) PRN Medication Order 06/05/2019 06/06/2019 06/07/2019 acetaminophen (TYLENOL) tablet 650 mg 650 mg, Oral, Every 4 hours PRN, Mild pain (Scale 1 - 3), Starting on Mon06/05/19 at 1802, Until Mon06/07/19 at 2048, Maximum dose of acetaminophen is 4000 mg from all sources in 24 hours. 0637 (Given - Provider: Onelia Aquino RN) 1114 (Given - Provider: Fela Lo RN) ondansetron (ZOFRAN) injection 4 mg 4 mg, Intravenous, Every 8 hours PRN, Nausea, Vomiting, Starting on Mon06/05/19 at 1801, Until Mon06/07/19 at 2048, IV push over 2-5 minutes. Linked Groups Order Group 1: heparin (porcine) injection 5,000 UnitsJump to med 5,000 Units, Subcutaneous, Every 12 hours scheduled (2 times per day), First dose on Mon06/05/19 at 2100, Until Discontinued And Place sequential compression device (COMPLETED) Routine, Once, On Mon06/05/19 at 1802, For 1 occurrence And Intermittent Pneumatic Compression Device Applied (COMPLETED) And Assess Sequential Compression Device (Assess skin at a minimum of every shift) (CANCELED) Routine, Every shift, First occurrence on Mon06/05/19 at 1802 And Maintain Sequential Compression Device (COMPLETED) Routine, Daily, First occurrence on Mon06/06/19 at 0600 And High Risk for VTE (COMPLETED) Group 2: insulin lispro (HUMALOG) injection 0-14 UnitsJump to med 0-14 Units, Subcutaneous, 3 times daily before meals, First dose on Mon06/05/19 at 1815, Until Discontinued, Blood Glucose (SENSITIVE Dosing): [Less than 70:? Initiate Hypoglycemia Standing Orders] [71-140: 0 units] [141-180: 2 units] [181-220: 4 units] [221-260: 6 units] [261-300: 8 units] [301-350: 10 units] [351-400: 12 units] [Greater than 400: 14 units and Call Physician] And insulin lispro (HUMALOG) injection 0-7 UnitsJump to med 0-7 Units, Subcutaneous, Nightly at bedtime, First dose on Mon06/05/19 at 2100, Until Discontinued, Blood Glucose (SENSITIVE Dosing): [Less than 70:? Initiate Hypoglycemia Standing Orders] [71-180: ? 0 units] [181-220:? 2 units] [221-260:? 3 units] [261-300:? 4 units] [301-350:? 5 units] [351- 400:? 6 units] [Greater than 400:? 7 units and Call Physician] documented in this encounter Care Teams Associate Veterinarian Relationship Specialty Start Date End Date Don Branham MD [address] [place] [address] PCP - General EMERGENCY MEDICINE 05/10/19 Damon Swanson MD INTERNAL MEDICINE 12/10/18 documented as of this encounter
--- OUTSIDE RECORDS SUMMARY | 2024-02-26 21:25 | XMS_ITS | Encounter Summary ---
Author Organization [facility] Address [address] [place] [address]. [place] [address] [place] [address] Care Team Providers Care Toll Line Mechanic Name Role Phone Damon Swanson MD Unavailable [phone] Don Branham MD Primary Care Provider [phone] Encounter Details Date Type Department Care Team (Latest Contact Info) Description 07/05/2019 Travel Social History Tobacco Use Types Packs/Day [...] Assessment Author Status Yes 06/29/2019 12:55 PM Loree Alvarado RN Active * Do you have difficulty dressing or bathing? Answer Date of Assessment Author Status Yes 06/29/2019 12:55 PM Loree Alvarado RN Active * Because of a physical, mental, or emotional condition, do you have difficulty doing errands alone such as visiting a doctor's office or shopping? Answer Date of Assessment Author Status Yes 06/29/2019 12:55 PM Loree Alvarado RN Active documented as of this encounter Mental Status * Because of a physical, mental, or emotional condition, do you have serious difficulty concentrating, remembering, or making decisions? Answer Entry Date Author Status Yes 06/29/2019 12:55 PM Loree Alvarado RN Active documented in this encounter Plan of Treatment Not on file documented as of this encounter Visit Diagnoses Not on filedocumented in this encounter Additional Health Concerns Infection Onset Date Last Indicated Resolved Time MRSA Comment:MRSA Blood Identified 06/28/2019 06/28/2019 07/01/2019 documented as of this encounter Care Teams Toll Line Mechanic Relationship Specialty Start Date End Date Don Branham MD [address] [place] [address] PCP - General EMERGENCY MEDICINE 05/10/19 Damon Swanson MD INTERNAL MEDICINE 12/10/18 documented as of this encounter
--- OUTSIDE RECORDS SUMMARY | 2024-02-26 21:25 | XMS_ITS | Encounter Summary ---
Author Organization [facility] Address [address] [place] [address]. [place] [address] [place] [address] Care Team Providers Care Stained Glass Painter Name Role Phone Damon Swanson MD Unavailable [phone] Don Branham MD Primary Care Provider [phone] Encounter Details Date Type Department Care Team (Latest Contact Info) Description 06/28/2019 Travel Social History Tobacco Use Types Packs/Day [...] Assessment Author Status Yes 06/05/2019 6:50 PM Erma Joseph RN Active * Do you have difficulty dressing or bathing? Answer Date of Assessment Author Status Yes 06/05/2019 6:50 PM Erma Joseph RN Active * Because of a physical, mental, or emotional condition, do you have difficulty doing errands alone such as visiting a doctor's office or shopping? Answer Date of Assessment Author Status Yes 06/05/2019 6:50 PM Erma Joseph RN Active documented as of this encounter [...] on filedocumented in this encounter Care Teams Stained Glass Painter Relationship Specialty Start Date End Date Don Branham MD [address] [place] [address] PCP - General EMERGENCY MEDICINE 05/10/19 Damon Swanson MD INTERNAL MEDICINE 12/10/18 documented as of this encounter
--- OUTSIDE RECORDS SUMMARY | 2024-02-26 21:25 | XMS_ITS | Encounter Summary ---
Author Organization [facility] Address [address] [place] [address]. [place] [address] [place] [address] Care Team Providers Care Drilling Machine Operator Name Role Phone Cecilio Aldrich MD Primary Care Provider [phone] Damon Swanson MD Unavailable [phone] Encounter Details Date Type Department Care Team (Late st Contact Info) Description 02/05/2019 [facility] at [address] [address] Scanned, Documents Social History Tobacco Use Types [...] on filedocumented in this encounter Care Teams Drilling Machine Operator Relationship Specialty Start Date End Date Cecilio Aldrich MD [address] [place] [address] PCP - General BOOKSTORE CLERK 12/10/18 02/09/19 Damon Swanson MD [address] [place] [address] INTERNAL MEDICINE 12/10/18 documented as of this encounter
--- OUTSIDE RECORDS SUMMARY | 2024-02-26 21:26 | XMS_ITS | Encounter Summary ---
Author Organization [facility] Address [address] [place] [address]. [place] [address] [place] [address] Care Team Providers Care Petroleum Engineering Teacher Name Role Phone Cecilio Aldrich MD Primary Care Provider [phone] Damon Swanson MD Unavailable Encounter Details Date Type Department Care Team (Late st Contact Info) Description 01/07/2019 1:30 PM CDT Home Care Visit [address] [place] [address] Cris Lim, STEAM TENDER PT HOME VISIT Social History Tobacco Use Types Packs/Day Years [...] Sign Reading Time Taken Comments Blood Pressure 132/74 01/07/2019 2:16 PM CDT Pulse 72 01/07/2019 2:16 PM CDT Temperature 36.1 ??C (97 ??F) 01/07/2019 2:16 PM CDT Respiratory Rate 18 01/07/2019 2:16 PM CDT Oxygen Saturation - - Inhaled Oxygen Concentration - - Weight - - Height - - Body Mass Index - - documented in this encounter Plan of Treatment Not on file documented as of this encounter Visit Diagnoses Not on filedocumented in this encounter Home Health Visit - Care Plan Visit Details Visit Type -PT - Home Visit Discipline -Physical Therapy Problems Problem Description Start Date Status Goals Interve ntions Care Coordination Disciplines: Physical Therapy Management and coordination of patient care 12/19/2018 Active 1 goal linked to scheduled/docume nted intervention 1 goal intervention scheduled/documen monalisa in this visit Homebound Status Disciplines: Physical Therapy Patient meets requirements of homebound status as evidenced by fatigues easily, gait limited to household distances, requires elevation of lower extremities for wound healing, unable to leave home safely without assistance, wound complications. 12/19/2018 Active 1 goal linked to scheduled/docume nted intervention A Plan for Next Visit Disciplines: Physical Therapy Plan for next visit 12/19/2018 Active 1 goal linked to scheduled/docume nted intervention 1 goal intervention scheduled/documen monalisa in this visit Therapies Medications Disciplines: Physical Therapy Management of home medications 12/19/2018 Active 1 goal linked to scheduled/docume nted intervention 1 goal intervention scheduled/documen monalisa in this visit Home Safety Disciplines: Physical Therapy Management and evaluation of patient's home environment 12/19/2018 Active 1 goal linked to scheduled/docume nted intervention 1 goal intervention scheduled/documen monalisa in this visit Therapies Vitals Disciplines: Physical Therapy Obtain VS 12/19/2018 Active 1 goal linked to scheduled/docume nted intervention 1 goal intervention scheduled/documen monalisa in this visit PT Gait Training Disciplines: Physical Therapy Gait evaluation and training in appropriate use of assistive devices 12/19/2018 Active 1 goal linked to scheduled/docume nted intervention 1 goal intervention scheduled/documen monalisa in this visit Therapies Transfer Training Disciplines: Physical Therapy Transfer Training 12/19/2018 Active 1 goal linked to scheduled/docume nted intervention 1 goal intervention scheduled/documen monalisa in this visit PT Therapeutic Exercise Disciplines: Physical Therapy Therapeutic exercise 12/19/2018 Active 1 goal linked to scheduled/docume nted intervention 2 goal interventions scheduled/documen monalisa in this visit Goals Goal Associated Problem Outcome Goal Met? Visit Notes Coordination of Care/Interpretive Services Description: Coordination of care will be achieved through 01/11/2019 for all disciplines. Care Coordination Met This Shift No PT - Homebound Status Description: Patient meets requirements of homebound status as evidenced by fatigues easily, gait limited to household distances, requires elevation of lower extremities for wound healing, unable to leave home safely without assistance, wound complications. Homebound Status Met This Shift No Provide Continuity of Care Description: To provide continuity of care A Plan for Next Visit Met This Shift No Therapies - Understanding of Medications - Physical Therapy Description: Patient will verbalize understanding of medication regimen by 01/11/2019. Therapies Medications Met This Shift No Remain Safe in Home Description: STG - Patient to state 3 fall prevention/home safety techniques to reduce risk of falls by 12/28/2018 Home Safety Met This Shift No Physical Therapy - Vital Signs Description: Vitals to be monitored as needed including pulse oximetry and changes or concerns reported to supervising therapist, employment case manager, and/or provider. Therapies Vitals Met This Shift No PT Gait Training Description: LTG- Patient to ambulate independently indoors with device as needed for 100 feet to assist with MD appointments by 01/11/2019 PT Gait Training Progressing No Physical Therapy - Transfer Training Description: LTG - Patient to perform bed/furniture transfers independently by 01/11/1029 Therapies Transfer Training Progressing No PT Therapeutic Exercise Description: LTG - Patient to demonstrate independence with home exercise program to promote increased lower extremity muscle strength to 4/5 to assist with transfers and ambulation by 01/11/2019 PT Therapeutic Exercise Progressing No Interventions Intervention Associated Problem/Goal Status Variance Visit Notes Care Coordination Description: Clinician to review care plan with patient/cargiver(s). Patient/caregiver agrees to plan of care and agrees to participate in care. Problem:Care Coordination Goal:Coordination of Care/Interpretive Services Completed Spoke with Pt regarding pt's progress. pt cooperating with poc Plan for Next Visit Description: Next visit plan summation Problem:A Plan for Next Visit Goal:Provide Continuity of Care Completed Re assesment from PT Review Medications Description: Clinician to review medications with patient/caregiver each visit and report any changes to employment case manager and/or supervising PT Problem:Therapies Medications Goal:Therapies - Understanding of Medications - Physical Therapy Completed No new meds Instruct Home Safety Description: Instruct patient on strategies/modificatio ns to home environment. Problem:Home Safety Goal:Remain Safe in Home Completed Pt still requires 3 n 1 commode for bathroom due to low toilet seat and to remove throw rugs Therapies - Vitals Description: PT , employment case manager, and/or physician to be contacted if pulse ox is consistently below 88%, temp greater than 100.5, systolic BP greater than 180 or less than 90 and diastolic BP greater than 90 or less than 50 and respirations less than 12 or greater than 24 Problem:Therapies Vitals Goal:Physical Therapy - Vital Signs Completed WNL PT gait training Description: Evaluate and instruct patient in gait training using wheeled walker. Problem:PT Gait Training Goal:PT Gait Training Completed Pt recieved gait training for 25' x 1 and 100' x 1 with ww and cga for safety over throw rugs. Pt required less rest breaks and gait tolerance improving Therapies - Transfer Training Description: Evaluate and instruct patient in safe transfers using appropriate body mechanics and necessary equipment to perform safe transfers. Problem:Therapies Transfer Training Goal:Physical Therapy - Transfer Training Completed Sit to stand transfers x 3 off couch with occassional cues on sequencing and mechanics to decrease effort and improve safety upon stand. :Pt no longer requires manual assist. Toilet transfer x 1 with difficulty managing clothes, but stand to sit transfer was more controlled. Transfers has improved considerably Therapies Balance Description: Assess balance and perform balance activities to decrease risk of falls Problem:PT Therapeutic Exercise Goal:PT Therapeutic Exercise Completed Pt performed static stand balance supported with ww with cues for upright posture and weight shifting 2 x 30 seconds. Pt performed static stand supported with min a and ww with eyes closed 2 x 25 seconds with difficulty Therapies - Therapeutic Exercise Description: HEP for lower extremity strengthening to assist with transfers and ambulation. Problem:PT Therapeutic Exercise Goal:PT Therapeutic Exercise Completed Pt received stretching to right hamstrings and gastroc to increase kne ext. Pt performed ankle df/pf, knee ext/flex,hip flexion and hip ab with assistance on r to increase knee ext after stretching pt able to increase knee ext. Pt reports I usually straighten it out by standing. Pt performed in standing x 15 reps marching and heel raises with support of ww. Pt overall moving better documented in this encounter Care Teams Petroleum Engineering Teacher Relationship Specialty Start Date End Date Cecilio Aldrich MD [address] [place] [address] PCP - General RURAL SOCIOLOGIST 12/10/18 02/09/19 Damon Swanson MD [address] [place] [address] INTERNAL MEDICINE 12/10/18 documented as of this encounter
--- OUTSIDE RECORDS SUMMARY | 2024-02-26 21:26 | XMS_ITS | Encounter Summary ---
Author Organization [facility] Address [address] [place] [address]. [place] [address] [place] [address] Care Team Providers Care Night Nurse Name Role Phone Cecilio Aldrich MD Primary Care Provider [phone] Damon Swanson MD Unavailable [phone] Encounter Details Date Type Department Care Team (Late st Contact Info) Description 01/11/2019 Home Care Visit [facility] Care [address] [place] [address] [place] [address] Parent, Mariaa Flores RN [phone] (Work) SN OASIS TRANSFER W/DC Social History Tobacco Use Types Packs/Day Years [...] - Care Plan Visit Details Visit Type -SN - OASIS Trans bubba w/DC Discipline -Care Home Problems Problem Description Start Date Status Goals Interve ntions Discharge Planning Disciplines: Care Home Discharge Planning 12/19/2018 Active 1 goal linked to scheduled/docume nted intervention 1 goal intervention scheduled/documen monalisa in this visit Care Coordination Disciplines: Care Home Management and coordination of patient care 12/19/2018 Active 1 goal linked to scheduled/docume nted intervention 2 goal interventions scheduled/documen monalisa in this visit Homebound Status Disciplines: Care Home Patient meets requirements of homebound status as evidenced by 12/5 12/19/2018 Active 1 goal linked to scheduled/docume nted intervention 1 problem intervention scheduled/documen monalisa in this visit A Plan for Next Visit Disciplines: Care Home Plan for next visit 12/19/2018 Active 1 goal linked to scheduled/docume nted intervention 1 goal intervention scheduled/documen monalisa in this visit Home Safety Disciplines: Care Home Management and evaluation of patient's home environment 12/19/2018 Active 1 goal linked to scheduled/docume nted intervention 3 goal interventions scheduled/documen monalisa in this visit Medications Disciplines: Care Home Management of home medications 12/19/2018 Active 1 goal linked to scheduled/docume nted intervention 3 goal interventions scheduled/documen monalisa in this visit Blood Glucose Monitoring Disciplines: Care Home Skilled assessment and evaluation of blood glucose monitoring 12/19/2018 Active 1 goal linked to scheduled/docume nted intervention 2 goal interventions scheduled/documen monalisa in this visit Management and Evaluation of the Care Plan Disciplines: Care Home SN for management and evaluation of skilled services 12/19/2018 Active 1 goal linked to scheduled/docume nted intervention 1 goal intervention scheduled/documen monalisa in this visit Home Health Aide Supervisory Visit Disciplines: Care Home Supervision of HH Aide, MOTION PICTURES CARTOONIST or NICHOLS 12/19/2018 Active 1 goal linked to scheduled/docume nted intervention 1 goal intervention scheduled/documen monalisa in this visit Nutritional concerns Disciplines: Care Home Inadequate/imbala nced nutritional concerns 12/19/2018 Active 1 goal linked to scheduled/docume nted intervention 1 goal intervention scheduled/documen monalisa in this visit Pulse Oximetry Disciplines: Care Home Skilled assessment and monitoring of O2 saturations. 12/19/2018 Active 1 goal linked to scheduled/docume nted intervention 1 goal intervention scheduled/documen monalisa in this visit Wound Care Disciplines: Care Home 01/09/2019 Active 1 goal linked to scheduled/docume nted intervention 2 problem interventions scheduled/documen monalisa in this visit Goals Goal Associated Problem Outcome Goal Met? Visit Notes Progress towards discharge Description: Documentation of ongoing progress towards goals through 02/14/19. Discharge Planning Adequate for Discharge Yes Coordination of Care Achieved Description: Coordination of care will be achieved Care Coordination Adequate for Discharge Yes Patient meets homebound requirements Description: Patient meets requirements of homebound status as evidenced by illness or injury, need the aid of supportive devices such as crutches, canes, wheelchairs and walkers; the use of special transportation; or the assistance of another person in order to leave their place of residence OR - Have a condition such that leaving his/her home is medically contraindicated. There must exist a normal inability to leave home AND Leaving home must require a considerable and taxing effort.Patient meets requirements of homebound status as evidenced by illness or injury, need the aid of supportive devices such as crutches, canes, wheelchairs and walkers; the use of special transportation; or the assistance of another person in order to leave their place of residence OR - Have a condition such that leaving his/her home is medically contraindicated. There must exist a normal inability to leave home AND Leaving home must require a considerable and taxing effort. Homebound Status Adequate for Discharge Yes Provide Continuity of Care Description: To provide continuity of care A Plan for Next Visit Adequate for Discharge Yes Remain Safe in Home Description: Patient will remain safe in their home as evidenced by no falls or injuries, through 02/14/19. Home Safety Adequate for Discharge Yes Understanding of Medication Regimen Description: patient and caregiver will verbalize understanding of medications and proper administration of medication regimen by 02/14/19. Medications Adequate for Discharge Yes SN Blood Glucose Monitoring Description: Patient to have blood sugars within normal limits Blood Glucose Monitoring Adequate for Discharge Yes SN Management and Evaluation of the Care Plan Description: Skilled services to see patient as ordered Management and Evaluation of the Care Plan Adequate for Discharge Yes SN FISHING MANAGER Supervision Description: RN to supervise Home Health Aide at least every 14 days through 02/14/19. Home Health Aide Supervisory Visit Adequate for Discharge Yes Nutritional Status for Optimal Health Description: Patient will demonstrate adequate nutritional status as evidenced by stabilization of weight and intake of required nutrients for optimal health and functioning by 02/14/19. Nutritional concerns Adequate for Discharge Yes SN Pulse Oximetry Description: Pulse oximetry to be monitored as needed through episode of care for shortness of breath or dyspnea. Pulse Oximetry Adequate for Discharge Yes Learning/Teaching Needs - Wound Care Description: Patient will be knowledgeable in dressing changes, wound care, signs and symptoms of infection and report findings to skilled nurse by the 4th skilled nurse visit. Wound Care Adequate for Discharge Yes Interventions Intervention Associated Problem/Goal Status Variance Visit Notes Plan Towards Discharge Description: Document patient and caregiver progress towards discharge. Problem:Discharge Planning Goal:Progress towards discharge Completed Care Plan Collaboration Description: Signs -report to provider if: BP: systolic blood pressure <90 or >160; diastolic blood pressure <60 or >90; Temperature: >100.5 F; Pulse: <60 or >100 bpm; Respiratory Rate: <12 or >28 /min; SPO2: <90%.Signs -report to provider if: BP: systolic blood pressure <90 or >160; diastolic blood pressure <60 or >90; Temperature: >100.5 F; Pulse: <60 or >100 bpm; Respiratory Rate: <12 or >28 /min; SPO2: <90%. Problem:Care Coordination Goal:Coordination of Care Achieved Completed Care plan updates: None at this visit Care Coordination Description: Coordinate care with Dr Aldrich and Dr Sullivan Problem:Care Coordination Goal:Coordination of Care Achieved Completed Skilled observation and assessment Description: Skilled nurse to assess homebound status Problem:Homebound Status Completed Plan for Next Visit Description: Next visit plan summation Problem:A Plan for Next Visit Goal:Provide Continuity of Care Completed Instruct Home Safety Description: Instruct patient and caregiver on strategies/modificatio ns to home environment. Problem:Home Safety Goal:Remain Safe in Home Completed Skilled Assessment Risk for Injury Description: Evaluate patient's home environment for potential safety risks, and educate patient and caregiver on identified safety risks. Problem:Home Safety Goal:Remain Safe in Home Completed Instruct injury prevention Description: Instruct patient and caregiver in strategies to prevent injury - modifications to the home environment, decrease clutter, frequent turning/repositioning, not to use ice/heat directly on the skin, choking precautions. Problem:Home Safety Goal:Remain Safe in Home Completed Medication Reconciliation Description: Reconcile medications and identify any unnecessary therapeutic duplication. Each clinician to perform bottle check weekly on their first visit of the week. Problem:Medications Goal:Understanding of Medication Regimen Completed Medication reconciliation not performed this date Skilled assessment medications Description: Assess patient and caregiver ability to manage medications. Provide detailed instruction on proper administration and medication management. If medications are being managed appropriately, check completed. Problem:Medications Goal:Understanding of Medication Regimen Completed Instruct medications Description: Assess effectiveness of current treatment regimen, including purpose, side effects, food/drug interactions, storage and potential complications, and notify physician of changes needed. Any changes will be reviewed with patient/caregiver, added to medication list, and updated on medication list in home. Patient to take medications from pill bottles set up by Patient, Caregiver, SN. Problem:Medications Goal:Understanding of Medication Regimen Completed Teach Diabetic Foot Care Description: Teach patient and caregiver diabetic foot care. Problem:Blood Glucose Monitoring Goal:SN Blood Glucose Monitoring Completed Blood glucose monitoring Description: patient and caregiver to perform blood sugars ac & HS and record in daily log. SN to review log every visit and notify physician of BS < 50 and > 250. SN to instruct patient and caregiver on performing blood sugars and how to record in daily log. Instruct patient on S/S and management of hypo/hyperglycemia and when to notify HH, physician, or EMS. Problem:Blood Glucose Monitoring Goal:SN Blood Glucose Monitoring Completed Management and evaluation of care plan Description: SN to visit for management and evaluation of unskilled and skilled care providers. Evaluate and manage it to prevent medical complications. Notify physician of the need for modifications. Problem:Management and Evaluation of the Care Plan Goal:SN Management and Evaluation of the Care Plan Completed RN Supervisory Visit Description: RN to perform supervision of the Home Health Aide . Problem:Home Health Aide Supervisory Visit Goal:SN FISHING MANAGER Supervision Completed Instruct diet Description: Instruct on Diabetic diet, wound healing diet, and heart healthy diet and any fluid restrictions/requireme nts. Problem:Nutritional concerns Goal:Nutritional Status for Optimal Health Completed SN to obtain pulse ox reading Description: SN to obtain pulse oximetry reading as ordered. Evaluate the effectiveness of current therapy, and notify physician of O2 saturations below 90%. Problem:Pulse Oximetry Goal:SN Pulse Oximetry Completed SN Perform Wound Care Description: Skilled nurse using clean technique to remove old dressing, clean wound to right and left lower extremitiy wounds using wound cleanser, apply collagenase to wound bed, alginate cover with foam dressing and two layers of tubigrip. Skilled nurse to complete wound measurements weekly (see assessment form). Wound care to be completed by skilled nurse 2 times a week or by family if skilled nurse unavailable. Problem:Wound Care Completed Instruct wound care Description: Skilled nurse to instruct patient to keep weight ff area at all times, instruct on signs and symptoms of infection and report to skilled nurse. Problem:Wound Care Completed documented in this encounter Care Teams Night Nurse Relationship Specialty Start Date End Date Cecilio Aldrich MD [address] [place] [address] PCP - General MRP CONTROLLER 12/10/18 02/09/19 Damon Swanson MD [address] [place] [address] INTERNAL MEDICINE 12/10/18 documented as of this encounter
--- OUTSIDE RECORDS SUMMARY | 2024-02-26 21:26 | XMS_ITS | Encounter Summary ---
Author Organization [facility] Address [address] [place] [address]. [place] [address] [place] [address] Care Team Providers Care Therapeutic Dietitian Name Role Phone Cecilio Aldrich MD Primary Care Provider [phone] Damon Swanson MD Unavailable [phone] Encounter Details Date Type Department Care Team (Late st Contact Info) Description 12/26/2018 11:30 AM CDT Home Care Visit [address] [place] [id number] Yazmin Rodriguez HOME VISIT Social History Tobacco Use Types [...] Sign Reading Time Taken Comments Blood Pressure 120/72 12/26/2018 12:10 PM CDT Pulse 18 12/26/2018 12:10 PM CDT Temperature 35.9 ??C (96.6 ??F) 12/26/2018 12:10 PM C DT Respiratory Rate 74 12/26/2018 12:10 PM CDT Oxygen Saturation - - Inhaled Oxygen Concentration - - Weight - - Height - - Body Mass Index - - documented in this encounter Plan of Treatment Not on file documented as of this encounter Visit Diagnoses Not on filedocumented in this encounter Home Health Visit - Care Plan Visit Details Visit Type -Aide - Home Visi t Discipline -Home Health Aide Problems Problem Description Start Date Status Goals Interve ntions Aide for personal cares/mobility /ADL's Disciplines: Home Health Aide Aide to perform personal cares, mobility, ADL's at the direction of the SN. 12/19/2018 Active 1 goal linked to scheduled/documen monalisa intervention 6 goal interventions scheduled/document ed in this visit Goals Goal Associated Problem Outcome Goal Met? Visit Notes Hygiene Needs Met with Assist of JUNIOR ASSISTANT MANAGER Description: Hygiene and safety needs will be met with assist of JUNIOR ASSISTANT MANAGER by 02/14/19. Client will progress towards increased independence in performance of self cares. Aide for personal cares/mobility/ADL's Met This Shift No Interventions Intervention Associated Problem/Goal Status Variance Visit Notes Aide Communication tool Description: Complete JUNIOR ASSISTANT MANAGER communication Problem:Aide for personal cares/mobility/ADL's Goal:Hygiene Needs Met with Assist of JUNIOR ASSISTANT MANAGER Completed Last BM Date: 12/26 Shampo: No Bathing: Partial Nail Care: No Clothing change: Yes Bruised, open or red areas: None noted Nurse notified or aware: No Aide assist with shampoo Description: Assist with shampooing hair Problem:Aide for personal cares/mobility/ADL's Goal:Hygiene Needs Met with Assist of JUNIOR ASSISTANT MANAGER Completed Aide cleanse perineal Description: Cleanse perineal area Problem:Aide for personal cares/mobility/ADL's Goal:Hygiene Needs Met with Assist of JUNIOR ASSISTANT MANAGER Completed Aide personal care Description: Personal Care: shampoo hair, brush teeth, skin care and apply cream/lotion Problem:Aide for personal cares/mobility/ADL's Goal:Hygiene Needs Met with Assist of JUNIOR ASSISTANT MANAGER Completed Aide inspect skin Description: Inspect skin for signs of pressure or irritation. After bathing reapply moisturizer and moisture barrier. Report any observed or patient reported concerns to RN. Problem:Aide for personal cares/mobility/ADL's Goal:Hygiene Needs Met with Assist of JUNIOR ASSISTANT MANAGER Completed Aide tub/shower bath Description: Assistance with bathing using tub, hand-held shower and bath bench. Clean shower after bathing. Problem:Aide for personal cares/mobility/ADL's Goal:Hygiene Needs Met with Assist of JUNIOR ASSISTANT MANAGER Completed documented in this encounter Care Teams Therapeutic Dietitian Relationship Specialty Start Date End Date Cecilio Aldrich MD [address] [place] [address] PCP - General EMBEDDED FIRMWARE DEVELOPER 12/10/18 02/09/19 Damon Swanson MD [address] [place] [address] INTERNAL MEDICINE 12/10/18 documented as of this encounter
--- OUTSIDE RECORDS SUMMARY | 2024-02-26 21:26 | XMS_ITS | Encounter Summary ---
Author Organization [facility] Address [address] [place] [address]. [place] [address] [place] [address] Care Team Providers Care Aoc Airspace Control Officer Name Role Phone Cecilio Aldrich MD Primary Care Provider Damon Swanson MD Unavailable [phone] Encounter Details Date Type Department Care Team (Latest Contact Info) Description 12/19/2018 9:30 AM CDT Home Care Visit [address] [place] [address] Leydi Harmon, PT [address] [place] [address] PT INITIAL EVALUATION Social History Tobacco Use Types Packs/Day Years [...] Sign Reading Time Taken Comments Blood Pressure 136/70 12/19/2018 9:29 AM CDT Pulse 74 12/19/2018 9:29 AM CDT Temperature 35.7 ??C (96.2 ??F) 12/19/2018 9:29 AM CD T Respiratory Rate 18 12/19/2018 9:29 AM CDT Oxygen Saturation - - Inhaled Oxygen Concentration - - Weight - - Height - - Body Mass Index - - documented in this encounter Plan of Treatment Not on file documented as of this encounter Visit Diagnoses Not on filedocumented in this encounter Home Health Visit - Care Plan Visit Details Visit Type -PT - Initial Caitlinjohn morin Discipline -Physical Therapy Problems Problem Description Start [...] risk of falls by 12/28/2018 Home Safety Progressing No Physical Therapy - Vital Signs Description: Vitals to be monitored as needed including pulse oximetry and changes or concerns reported to supervising therapist, case repairer, and/or provider. Therapies Vitals Met This Shift [...] Problem:Care Coordination Goal:Coordination of Care/Interpretive Services Completed Discussed home health physical therapy frequency and plan of care with patient agreeable to participate in therapy program. Case conferenced with home care team regarding home health physical therapy frequency and plan of care. Plan for Next Visit Description: Next visit plan summation Problem:A Plan for Next Visit Goal:Provide Continuity of Care Completed Next visit planned for 12/21/2018 with patient agreeable to work on lower extremity strength, transfers, balance, and ambulation Review Medications Description: Clinician to review medications with patient/caregiver each visit and report any changes to case repairer and/or supervising PT Problem:Therapies Medications Goal:Therapies - Understanding of Medications - Physical Therapy Completed Patient denies any medication changes since last visit Instruct Home Safety Description: Instruct patient on strategies/modificatio ns to home environment. Problem:Home Safety Goal:Remain Safe in Home Completed Instructed patient on clear pathways, no throw rugs, tape down edges of large area rugs, proper lighting, to use assistive device at all times, slow position changes, phone within reach at all times, slow position changes, phone within reach at all times, and to use a nightlight at night. Reviewed emergency care plan and home health contact numbers with patient verbalizing understanding. Therapies - Vitals Description: PT , case repairer, and/or physician to be contacted if pulse ox is consistently below 88%, temp greater than 100.5, systolic BP greater than 180 or less than 90 and diastolic BP greater than 90 or less than 50 and respirations less than 12 or greater than 24 Problem:Therapies Vitals Goal:Physical Therapy - Vital Signs Completed Vital signs obtained and within parameters. PT gait training Description: Evaluate and instruct patient in gait training using wheeled walker. Problem:PT Gait Training Goal:PT Gait Training Completed Gait training with wheeled walker on level surfaces working on heel strike, push off, advancement of wheeled walker, foot clearance and step length. Therapies - Transfer Training Description: Evaluate and instruct patient in safe transfers using appropriate body mechanics and necessary equipment to perform safe transfers. Problem:Therapies Transfer Training Goal:Physical Therapy - Transfer Training Completed Patient was instructed on proper technique for sit <> stand transfers. Patient requires cues to scoot to edge of chair, lean forward sufficiently to get center of gravity over base of support and push up with hands. Patient requires cues to position properly in front of chair, reach back for chair and control descent during stand to sit transfers. Therapies Balance Description: Assess balance and perform balance activities to decrease risk of falls Problem:PT Therapeutic Exercise Goal:PT Therapeutic Exercise Completed Patient demonstrates fair standing balance with wheeled walker during ambulation. Therapies - Therapeutic Exercise Description: HEP for lower extremity strengthening to assist with transfers and ambulation. Problem:PT Therapeutic Exercise Goal:PT Therapeutic Exercise Completed Patient was instructed on and performed lower extremity strengthening exercises in sitting with cues for range of motion, pace, alignment, and end of range holds. Patient performs 10 reps seated ankle dorsiflexion and plantarflexion, knee extension, hip flexion, and hip abduction and adduction. documented in this encounter Care Teams Aoc Airspace Control Officer Relationship Specialty Start Date End Date Cecilio Aldrich MD [address] [place] [address] PCP - General TUBE SIZER OPERATOR 12/10/18 02/09/19 Damon Swanson MD [address] [place] [address] INTERNAL MEDICINE 12/10/18 documented as of this encounter
--- OUTSIDE RECORDS SUMMARY | 2024-02-26 21:26 | XMS_ITS | Encounter Summary ---
Author Organization [facility] Address [address] [place] [address]. [place], [place] [id number] [place] [address] Care Team Providers Care Software Integration Developer Name Role Phone Cecilio Aldrich MD Primary Care Provider [phone] Damon Swanson MD Unavailable [phone] Encounter Details Date Type Department Care Team (Latest Contact Info) Description 01/04/2019 8:45 AM CDT Home Care Visit [address] [place] [address] [place] [address] Daniela Harrington, PLASTIC SURGEON PLASTIC SURGEON HH/HOSPICE TELEPHONE ENCOUNTER/VISIT Social History Tobacco Use Types Packs/Day Years [...] - Care Plan Visit Details Visit Type -SW-Hospice Phone Encounter/VIS Discipline -Medical Social Work Problems Problem Description Start Date Status Goals Interve ntions PLASTIC SURGEON Community Resource Planning Disciplines: Medical Social Work Assist with community resources 12/26/2018 Active 1 goal linked to scheduled/documen monalisa intervention 1 goal intervention scheduled/document ed in this visit Goals Goal Associated Problem Outcome Goal Met? Visit Notes PLASTIC SURGEON Community Resource Planning Description: Patient will move to assisted living/nursing facility of choice for so that level of care needs are better met by 01/22/19. PLASTIC SURGEON Community Resource Planning No Interventions Intervention Associated Problem/Goal Status Variance Visit Notes PLASTIC SURGEON community resource planning Description: PLASTIC SURGEON to assist with community resource planning related to more supportive living arrangement. Patient reports that she lives with her granddaughter, but she does not provide any assistance other than letting patient sleep on the couch and occasionally provides some food for patient. Patient reports that she is interested in moving to an assisted living/correction. Patient reports preference for [facility] in [place] and [facility] for assisted living and did not have a preference for nursing facility. PLASTIC SURGEON spoke with Sylvia Reynaga RN case manager who confirms that due to patient's inability to transfer independently, patient would be more appropriate for correction care over SHELTER care. PLASTIC SURGEON to contact area nursing facilities for bed availability to obtain fax number to insure patient's information if forwarded to those facilities for admission review. Problem:PLASTIC SURGEON Community Resource Planning Goal:PLASTIC SURGEON Community Resource Planning Scheduled documented in this encounter Care Teams Software Integration Developer Relationship Specialty Start Date End Date Cecilio Aldrich MD [address] [place] [address] PCP - General IRRIGATION SYSTEM INSTALLER 12/10/18 02/09/19 Damon Swanson MD [address] [place] [address] INTERNAL MEDICINE 12/10/18 documented as of this encounter
--- OUTSIDE RECORDS SUMMARY | 2024-02-26 21:26 | XMS_ITS | Encounter Summary ---
Author Organization [facility] Address [address] [place] [address]. [place] [address] [place] [address] Care Team Providers Care Senior Technologist Name Role Phone Cecilio Aldrich MD Primary Care Provider [phone] Damon Swanson MD Unavailable [phone] Encounter Details Date Type Department Care Team (Late st Contact Info) Description 12/25/2018 3:00 PM CDT Home Care Visit [address] [place] [address] [place] [address] Adele Zamora RN [phone] (Work) AIDE HOME VISIT Social History Tobacco Use Types [...] Sign Reading Time Taken Comments Blood Pressure 140/90 12/25/2018 3:06 PM CDT Pulse 82 12/25/2018 3:06 PM CDT Temperature 36.1 ??C (96.9 ??F) 12/25/2018 3:06 PM CD T Respiratory Rate 18 12/25/2018 3:06 PM CDT Oxygen Saturation - - Inhaled [...] Notes Hygiene Needs Met with Assist of MICROCOMPUTER TECHNICIAN Description: Hygiene and safety needs will be met with assist of MICROCOMPUTER TECHNICIAN by 02/14/19. Client will progress towards increased independence in performance of self cares. Aide for personal cares/mobility/ADL's Met This Shift No Interventions Intervention Associated Problem/Goal Status Variance Visit Notes Aide Communication tool Description: Complete MICROCOMPUTER TECHNICIAN communication Problem:Aide for personal cares/mobility/ADL's Goal:Hygiene Needs Met with Assist of MICROCOMPUTER TECHNICIAN Completed Last BM Date: 12/25/18 Shampoo: No Bathing: Partial Nail Care: No Clothing change: Yes Bruised, open or red areas: None noted Nurse notified or aware: Yes Aide assist with shampoo Description: Assist with shampooing hair Problem:Aide for personal cares/mobility/ADL's Goal:Hygiene Needs Met with Assist of MICROCOMPUTER TECHNICIAN Completed Aide cleanse perineal Description: Cleanse perineal area Problem:Aide for personal cares/mobility/ADL's Goal:Hygiene Needs Met with Assist of MICROCOMPUTER TECHNICIAN Completed Aide personal care Description: Personal Care: shampoo hair, brush teeth, skin care and apply cream/lotion Problem:Aide for personal cares/mobility/ADL's Goal:Hygiene Needs Met with Assist of MICROCOMPUTER TECHNICIAN Completed Aide inspect skin Description: Inspect skin for signs of pressure or irritation. After bathing reapply moisturizer and moisture barrier. Report any observed or patient reported concerns to RN. Problem:Aide for personal cares/mobility/ADL's Goal:Hygiene Needs Met with Assist of MICROCOMPUTER TECHNICIAN Completed Aide tub/shower bath Description: Assistance with bathing using tub, hand-held shower and bath bench. Clean shower after bathing. Problem:Aide for personal cares/mobility/ADL's Goal:Hygiene Needs Met with Assist of MICROCOMPUTER TECHNICIAN Completed documented in this encounter Care Teams Senior Technologist Relationship Specialty Start Date End Date Cecilio Aldrich MD [address] [place], [place] [id number] PCP - General CAR CONDITIONER 12/10/18 02/09/19 Damon Swanson MD [address] [place], [place] [id number] INTERNAL MEDICINE 12/10/18 documented as of this encounter
--- OUTSIDE RECORDS SUMMARY | 2024-02-26 21:26 | XMS_ITS | Encounter Summary ---
Author Organization [facility] Address [address] [place] [address]. [place] [address] [place] [address] Care Team Providers Care Cullet Washer Name Role Phone Cecilio Aldrich MD Primary Care Provider [phone] Damon Swanson MD Unavailable [phone] Encounter Details Date Type Department Care Team (Late st Contact Info) Description 01/29/2019 1:45 PM PEDIATRIC DENTIST Office Visit [facility] [address] [place] [address] Babar Sullivan MD Social History Tobacco Use [...] on filedocumented in this encounter Care Teams Cullet Washer Relationship Specialty Start Date End Date Cecilio Aldrich MD [address] [place] [address] PCP - General STRIPPER MACHINE OPERATOR 12/10/18 02/09/19 Damon Swanson MD [address] [place] [address] INTERNAL MEDICINE 12/10/18 documented as of this encounter
--- OUTSIDE RECORDS SUMMARY | 2024-02-26 21:26 | XMS_ITS | Encounter Summary ---
Author Organization [facility] Address [address] [place] [address]. [place], [place] [address] [place] [address] Care Team Providers Care Cold Roll Packer Sheet Iron Name Role Phone Cecilio Aldrich MD Primary Care Provider [phone] Damon Swanson MD Unavailable [phone] Encounter Details Date Type Department Care Team (Latest Contact Info) Description 12/28/2018 1:30 PM CDT Home Care Visit [address] [place] [address] [place] [address] Daniela Harrington, RN CLINICAL QUALITY RN CLINICAL QUALITY HH/HOSPICE TELEPHONE ENCOUNTER/VISIT Social History Tobacco Use [...] Description Start Date Status Goals Interve ntions RN CLINICAL QUALITY Community Resource Planning Disciplines: Medical Social Work Assist with community resources 12/26/2018 Active 1 goal linked to scheduled/documen monalisa intervention 1 goal intervention scheduled/document ed in this visit Goals Goal Associated Problem Outcome Goal Met? Visit Notes RN CLINICAL QUALITY Community Resource Planning Description: Patient will move to assisted living/nursing facility of choice for so that level of care needs are better met by 01/22/19. RN CLINICAL QUALITY Community Resource Planning No Interventions Intervention Associated Problem/Goal Status Variance Visit Notes RN CLINICAL QUALITY community resource planning Description: RN CLINICAL QUALITY to assist with community resource planning related to more supportive living arrangement. Patient reports that she lives with her granddaughter, but she does not provide any assistance other than letting patient sleep on the couch and occasionally provides some food for patient. Patient reports that she is interested in moving to an assisted living/usp. Patient reports preference for [facility] in [place] and [facility] for assisted living and did not have a preference for nursing facility. RN CLINICAL QUALITY spoke with Sylvia Reynaga RN case manager who confirms that due to patient's inability to transfer independently, patient would be more appropriate for usp care over [facility] care. RN CLINICAL QUALITY to contact area nursing facilities for bed availability to obtain fax number to insure patient's information if forwarded to those facilities for admission review. Problem:RN CLINICAL QUALITY Community Resource Planning Goal:RN CLINICAL QUALITY Community Resource Planning Scheduled documented in this encounter Care Teams Cold Roll Packer Sheet Iron Relationship Specialty Start Date End Date Cecilio Aldrich MD [address] [place] [address] PCP - General PIT INSPECTOR 12/10/18 02/09/19 Damon Swanson MD [address] [place] [address] INTERNAL MEDICINE 12/10/18 documented as of this encounter
--- OUTSIDE RECORDS SUMMARY | 2024-02-26 21:26 | XMS_ITS | Encounter Summary ---
Author Organization [facility] Address [address] [place] [address]. [place] [address] [place] [address] Care Team Providers Care Tag Clerk Name Role Phone Zeke Puente MD Primary Care Provider [phone] Cecilio Aldrich MD Primary Care Provider [phone] Damon Swanson MD Unavailable [phone] Kimberley Durant MD Primary Care Provider [phone] Don Branham MD Primary Care Provider [phone] Encounter Details Date Type Department Care Team (Late st Contact Info) Description 07/31/2018 Scan [facility] [place] [address] Scanned, Documents Social History Tobacco Use Types Packs/Day Years Used Date Smoking Tobacco: Never Assessed AUDIT-C Answer Date Recorded Frequency of Alcohol [...] documented as of this encounter Functional Status documented as of this encounter Mental Status * Question Answer Entry Date Author Status Because of a physical, mental, or emotional condition, do you have serious difficulty concentrating, remembering, or making decisions? No 07/16/2019 10:31 PM CDT Eloisa Chaidez RN Active documented in this encounter Plan of Treatment Not on file documented as of this encounter Procedures Procedure Name Priority Date/Time Associated Diagnosis Comments IMAGE GENERIC Routine 07/31/2018 documented in this encounter Results * IMAGE STUDY (07/31/2018) Anatomical Region Laterality Modality Other us Documents Scanned SCANNING Final Result documented in this encounter Visit Diagnoses Not on filedocumented in this encounter Additional Health Concerns Infection Onset Date Last Indicated Resolved Time MRSA Comment:MRSA Blood Identified 06/28/2019 06/28/2019 07/01/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 07/08/2019 07/08/2019 documented as of this encounter Care Teams Tag Clerk Relationship Specialty Start Date End Date Zeke Puente MD [address] [place] [address] PCP - General 06/13/16 12/09/18 Cecilio Aldrich MD [address] [place] [address] PCP - General SOLID WASTE LANDFILL TECHNICIAN 12/10/18 02/09/19 Kimberley Durant MD [address] [place] [address] PCP - General INTERNAL MEDICINE 02/10/19 05/09/19 Don Branham MD [address] [place] [address] PCP - General EMERGENCY MEDICINE 05/10/19 Damon Swanson MD [address] [place] [address] INTERNAL MEDICINE 12/10/18 documented as of this encounter
--- OUTSIDE RECORDS SUMMARY | 2024-02-26 21:26 | XMS_ITS | Encounter Summary ---
Author Organization [facility] Address [address] [place] [address]. [place], [place] [address] [place] [address] Care Team Providers Care Chairman Ceo Name Role Phone Cecilio Aldrich MD Primary Care Provider [phone] Damon Swanson MD Unavailable [phone] Reason for Visit * Reason Comments Diabetes Encounter Details Date Type Department Care Team (Late st Contact Info) Description 12/19/2018 8:00 AM CDT Home Care Visit [facility] Care [address] [place] [address] Adele Zamora RN [phone] (Work) SN HOME VISIT Social History Tobacco Use Types [...] Sign Reading Time Taken Comments Blood Pressure 140/72 12/19/2018 8:11 AM CDT Pulse 76 12/19/2018 8:11 AM CDT Temperature 36.1 ??C (96.9 ??F) 12/19/2018 8:11 AM CD T Respiratory Rate 18 12/19/2018 8:11 AM CDT Oxygen Saturation 97% 12/19/2018 8:11 AM CDT Inhaled Oxygen Concentration - - Weight - - Height - - Body Mass Index - - documented in this encounter Plan of Treatment Not on file documented as of this encounter Visit Diagnoses Not on filedocumented in this encounter Home Health Visit - Care Plan Visit Details Visit Type -SN - Home Visit Discipline -Jail Problems Problem Description Start Date Status Goals Interve ntions Discharge Planning Disciplines: Jail Discharge Planning 12/19/2018 Active 1 goal linked to scheduled/docume nted intervention 1 goal intervention scheduled/documen monalisa in this visit Care Coordination Disciplines: Jail Management and coordination of patient care 12/19/2018 Active 1 goal linked to scheduled/docume nted intervention 2 goal interventions scheduled/documen monalisa in this visit Homebound Status Disciplines: Jail Patient meets requirements of homebound status as evidenced by 02/1412/19/2018 Active 1 goal linked to scheduled/docume nted intervention 1 problem intervention scheduled/documen monalisa in this visit A Plan for Next Visit Disciplines: Jail Plan for next visit 12/19/2018 Active 1 goal linked to scheduled/docume nted intervention 1 goal intervention scheduled/documen monalisa in this visit Home Safety Disciplines: Jail Management and evaluation of patient's home environment 12/19/2018 Active 1 goal linked to scheduled/docume nted intervention 3 goal interventions scheduled/documen monalisa in this visit Medications Disciplines: Jail Management of home medications 12/19/2018 Active 1 goal linked to scheduled/docume nted intervention 3 goal interventions scheduled/documen monalisa in this visit Blood Glucose Monitoring Disciplines: Jail Skilled assessment and evaluation of blood glucose monitoring 12/19/2018 Active 1 goal linked to scheduled/docume nted intervention 2 goal interventions scheduled/documen monalisa in this visit Management and Evaluation of the Care Plan Disciplines: Jail SN for management and evaluation of skilled services 12/19/2018 Active 1 goal linked to scheduled/docume nted intervention 1 goal intervention scheduled/documen monalisa in this visit Home Health Aide Supervisory Visit Disciplines: Jail Supervision of HH Aide, PUPPET DEVELOPER or NICHOLS 12/19/2018 Active 1 goal linked to scheduled/docume nted intervention 1 goal intervention scheduled/documen monalisa in this visit Nutritional concerns Disciplines: Jail Inadequate/imbala nced nutritional concerns 12/19/2018 Active 1 goal linked to scheduled/docume nted intervention 1 goal intervention scheduled/documen monalisa in this visit Pulse Oximetry Disciplines: Jail Skilled assessment and monitoring of O2 saturations. 12/19/2018 Active 1 goal linked to scheduled/docume nted intervention 1 goal intervention scheduled/documen monalisa in this visit Wound Care Disciplines: Jail Alteration in skin integrity 12/19/2018 Active 1 goal linked to scheduled/docume nted intervention 1 problem intervention scheduled/documen monalisa in this visit 3 goal interventions scheduled/documen monalisa in this visit Goals Goal Associated Problem Outcome Goal Met? Visit Notes Progress towards discharge Description: Documentation of ongoing progress towards goals through 02/14/19. Discharge Planning Progressing No Coordination of Care Achieved Description: Coordination of care will be achieved Care Coordination Met This Shift No Patient meets homebound requirements Description: Patient meets [...] a considerable and taxing effort. Homebound Status Met This Shift No Provide Continuity of Care Description: To provide continuity of care A Plan for Next Visit Met This Shift No Remain Safe in Home Description: Patient will remain safe in their home as evidenced by no falls or injuries, through 02/14/19. Home Safety Met This Shift No Understanding of Medication Regimen Description: patient and caregiver will verbalize understanding of medications and proper administration of medication regimen by 02/14/19. Medications Met This Shift No SN Blood Glucose Monitoring Description: Patient to have blood sugars within normal limits Blood Glucose Monitoring Not Progressing No patient does not have a glucometer she is unable to check. SN Management and Evaluation of the Care Plan Description: Skilled services to see patient as ordered Management and Evaluation of the Care Plan Met This Shift No SN STUFFER Supervision Description: RN to supervise Home Health Aide at least every 14 days through 02/14/19. Home Health Aide Supervisory Visit No Nutritional Status for Optimal Health Description: Patient will demonstrate adequate nutritional status as evidenced by stabilization of weight and intake of required nutrients for optimal health and functioning by 02/14/19. Nutritional concerns Met This Shift No SN Pulse Oximetry Description: Pulse oximetry to be monitored as needed through episode of care for shortness of breath or dyspnea. Pulse Oximetry Met This Shift No Identify Signs/Symptoms of Infection Description: patient and caregiver will demonstrate the ability to identify the signs/symptoms of infection by 02/14/19. Wound Care Met This Shift No Patient instructed to keep the legs elevated Interventions Intervention Associated Problem/Goal Status Variance Visit [...] Goal:Understanding of Medication Regimen Completed Medication reconciliation performed with weekly bottle check. Skilled assessment medications Description: Assess patient and [...] . Problem:Home Health Aide Supervisory Visit Goal:SN STUFFER Supervision Completed Instruct diet Description: Instruct on [...] 90%. Problem:Pulse Oximetry Goal:SN Pulse Oximetry Completed Wound Measurement Description: Wound measured weekly by HH Agency (see wound assessment form). Problem:Wound Care Goal:Identify Signs/Symptoms of Infection Completed SN Perform Wound Care Description: SN, Patient or Caregiver to perform wound care to left lower leg medial and posterior diabetic ulcer with fat layer exposed Daily. Dressing change to consist of: Remove old dressing (May soak with saline prior to removing as needed). Cleanse wound with wound cleanser or soap and water. Apply santyl - may use zeroform if no santyl in the home- cover with gauze, and secure with kerlex and tape. Patient to wear 2 layer tubigrip from toes to knee. Problem:Wound Care Goal:Identify Signs/Symptoms of Infection Completed Skilled assessment wound Description: Assess and document wound location, size of visible granulation tissue or epithelialization, necrotic tissue, s/s of infection. Assess and document exudate volume, color, consistency, and odor. See wound documentation form. Notify provider of complications. Problem:Wound Care Goal:Identify Signs/Symptoms of Infection Completed SN Perform Wound Care Description: SN, Patient or Caregiver to perform wound care to right lower leg and foot diabetic ulcer with fat layer exposed Daily. Dressing change to consist of: Remove old dressing (May soak with saline prior to removing as needed). Cleanse wound with wound cleanser or soap and water. Apply santyl - may use zeroform if no santyl in the home- cover with gauze, and secure with kerlex and tape. Patient to wear 2 layer tubigrip from toes to knee. Problem:Wound Care Completed documented in this encounter Care Teams Chairman Ceo Relationship Specialty Start Date End Date Cecilio Aldrich MD [address] [place] [address] PCP - General PIPE FOREMAN 12/10/18 02/09/19 Damon Swanson MD [address] [place] [address] INTERNAL MEDICINE 12/10/18 documented as of this encounter
--- OUTSIDE RECORDS SUMMARY | 2024-02-26 21:26 | XMS_ITS | Encounter Summary ---
Author Organization [facility] Address [address] [place] [address]. [place], [place] [address] [place] [address] Care Team Providers Care Tire Changer Name Role Phone Zeke Puente MD Primary Care Provider Encounter Details Date Type Department Care Team (Late st Contact Info) Description 2017 [place] [address] , Generic Conversion, Social History Tobacco Use Types Packs/Day Years Used Date Smoking Tobacco: Never Assessed Comments Unknown Sex and Gender Information Value Date Recorded Sex Assigned at Not on file Legal Sex Female 6:54 PM CDT Gender Identity Not on file Sexual Orientation Not on file documented as of this encounter Plan of Treatment Not on file documented as of this encounter Visit Diagnoses Not on filedocumented in this encounter Care Teams Tire Changer Relationship Specialty Start Date End Date Zeke Puente MD [address] [place] [address] PCP - General 06/13/16 12/09/18 documented as of this encounter
--- OUTSIDE RECORDS SUMMARY | 2024-02-26 21:26 | XMS_ITS | Encounter Summary ---
Author Organization [facility] Address [address] [place] [address]. [place] [address] [place] [address] Care Team Providers Care Equity Manager Name Role Phone Cecilio Aldrich MD Primary Care Provider Damon Swanson MD Unavailable [phone] Encounter Details Date Type Department Care Team (Late st Contact Info) Description 12/18/2018 Home Care Visit [facility] Home Care [address] [place] [address] [place] [address] Tressa Arias, OT [address] [place], [place] [address] CASE COMMUNICATION Social History Tobacco Use Types Packs/Day Years [...] on filedocumented in this encounter Care Teams Equity Manager Relationship Specialty Start Date End Date Cecilio Aldrich MD [address] [place] [address] PCP - General SALESPERSON SHOES 12/10/18 02/09/19 Damon Swanson MD [address] [place] [address] INTERNAL MEDICINE 12/10/18 documented as of this encounter
--- OUTSIDE RECORDS SUMMARY | 2024-02-26 21:26 | XMS_ITS | Encounter Summary ---
Author Organization [facility] Address [address] [place] [address]. [place], [place] [id number] [place] [id number] Care Team Providers Care [employer] Teacher Name Role Phone Cecilio Aldrich MD Primary Care Provider [phone] Damon Swanson MD Unavailable [phone] Reason for Visit * Reason Comments Wound Encounter Details Date Type Department Care Team (Late st Contact Info) Description 12/31/2018 8:30 AM CDT Home Care Visit [facility] Care [address] [place] [address] Adele Zamora RN [phone] (Work) SN HOME VISIT Social History [...] Sign Reading Time Taken Comments Blood Pressure 120/68 12/31/2018 8:33 AM CDT Pulse 82 12/31/2018 8:33 AM CDT Temperature 37 ??C (98.6 ??F) 12/31/2018 8:33 AM CDT Respiratory Rate 18 12/31/2018 8:33 AM CDT Oxygen Saturation 96% 12/31/2018 8:33 AM CDT Inhaled Oxygen Concentration - - Weight - - Height - - Body Mass Index - - documented in this encounter Plan of Treatment Not on file documented as of this encounter Visit Diagnoses Not on filedocumented in this encounter Home Health Visit - Care Plan Visit Details Visit Type -SN - Home Visit Discipline -Prison Problems Problem Description Start Date Status Goals Interve ntions Discharge Planning Disciplines: Prison Discharge Planning 12/19/2018 Active 1 goal linked to scheduled/docume nted intervention 1 goal intervention scheduled/documen monalisa in this visit Care Coordination Disciplines: Prison Management and coordination of patient care 12/19/2018 Active 1 goal linked to scheduled/docume nted intervention 2 goal interventions scheduled/documen monalisa in this visit Homebound Status Disciplines: Prison Patient meets requirements of homebound status as evidenced by 02/1412/19/2018 Active 1 goal linked to scheduled/docume nted intervention 1 problem intervention scheduled/documen monalisa in this visit A Plan for Next Visit Disciplines: Prison Plan for next visit 12/19/2018 Active 1 goal linked to scheduled/docume nted intervention 1 goal intervention scheduled/documen monalisa in this visit Home Safety Disciplines: Prison Management and evaluation of patient's home environment 12/19/2018 Active 1 goal linked to scheduled/docume nted intervention 3 goal interventions scheduled/documen monalisa in this visit Medications Disciplines: Prison Management of home medications 12/19/2018 Active 1 goal linked to scheduled/docume nted intervention 3 goal interventions scheduled/documen monalisa in this visit Blood Glucose Monitoring Disciplines: Prison Skilled assessment and evaluation of blood glucose monitoring 12/19/2018 Active 1 goal linked to scheduled/docume nted intervention 2 goal interventions scheduled/documen monalisa in this visit Management and Evaluation of the Care Plan Disciplines: Prison SN for management and evaluation of skilled services 12/19/2018 Active 1 goal linked to scheduled/docume nted intervention 1 goal intervention scheduled/documen monalisa in this visit Home Health Aide Supervisory Visit Disciplines: Prison Supervision of HH Aide, NUMERICAL CONTROL MACHINE MACHINIST or NICHOLS 12/19/2018 Active 1 goal linked to scheduled/docume nted intervention 1 goal intervention scheduled/documen monalisa in this visit Nutritional concerns Disciplines: Prison Inadequate/imbala nced nutritional concerns 12/19/2018 Active 1 goal linked to scheduled/docume nted intervention 1 goal intervention scheduled/documen monalisa in this visit Pulse Oximetry Disciplines: Prison Skilled assessment and monitoring of O2 saturations. 12/19/2018 Active 1 goal linked to scheduled/docume nted intervention 1 goal intervention scheduled/documen monalisa in this visit Wound Care Disciplines: Prison Alteration in skin integrity 12/19/2018 Active 1 goal linked to scheduled/docume nted intervention 1 problem intervention scheduled/documen monalisa in this visit 3 goal interventions scheduled/documen monalisa in this visit Goals Goal Associated Problem Outcome Goal Met? Visit Notes Progress towards discharge Description: Documentation of ongoing progress towards goals through 02/14/19. Discharge Planning Not Progressing No Coordination of Care Achieved Description: [...] limits Blood Glucose Monitoring Not Progressing No no glucometer family has not provided a glucometer for patient to check SN Management and Evaluation of the Care Plan Description: Skilled services to see patient as ordered Management and Evaluation of the Care Plan Met This Shift No SN ETL PROGRAMMER Supervision Description: RN to supervise Home Health Aide at least every 14 days through 02/14/19. Home Health Aide Supervisory Visit Met This Shift No Nutritional Status for Optimal Health Description: [...] 02/14/19. Wound Care Met This Shift No Interventions Intervention Associated [...] . Problem:Home Health Aide Supervisory Visit Goal:SN ETL PROGRAMMER Supervision Completed Instruct diet Description: Instruct on [...] Completed documented in this encounter Care Teams [employer] Teacher Relationship Specialty Start Date End Date Cecilio Aldrich MD [address] [place] [address] PCP - General INGOT WEIGHER 12/10/18 02/09/19 Damon Swanson MD [address] [place] [address] INTERNAL MEDICINE 12/10/18 documented as of this encounter
--- OUTSIDE RECORDS SUMMARY | 2024-02-26 21:26 | XMS_ITS | Encounter Summary ---
Author Organization [facility] Address [address] [place] [address]. [place] [address] [place] [address] Care Team Providers Care Telephonic Case Manager Name Role Phone Cecilio Aldrich MD Primary Care Provider [phone] Damon Swanson MD Unavailable [phone] Encounter Details Date Type Department Care Team (Late st Contact Info) Description 01/02/2019 11:00 AM CDT Home Care Visit [address] [place] [address] [place] [address] Leydi Harmon, PT [address] [place] [address] PT REASSESSMENT Social History Tobacco Use Types Packs/Day Years [...] Sign Reading Time Taken Comments Blood Pressure 124/76 01/02/2019 10:58 AM CDT Pulse 78 01/02/2019 10:58 AM CDT Temperature 35.8 ??C (96.4 ??F) 01/02/2019 10:58 AM C DT Respiratory Rate 18 01/02/2019 10:58 AM CDT Oxygen Saturation - - Inhaled Oxygen Concentration - - Weight - - Height - - Body Mass Index - - documented in this encounter Plan of Treatment Not on file documented as of this encounter Visit Diagnoses Not on filedocumented in this encounter Home Health Visit - Care Plan Visit Details Visit Type -PT - Reassessmen t Discipline -Physical Therapy Problems Problem Description Start [...] changes or concerns reported to supervising therapist, family caseworker, and/or provider. Therapies Vitals Met This Shift [...] plan of care with patient agreeable to participate. Case conferenced with Mindy Lim PTA. Plan for Next Visit Description: Next visit plan summation Problem:A Plan for Next Visit Goal:Provide Continuity of Care Completed Next visit planned for 01/07/2019 with patient agreeable to work on lower extremity strength, balance, transfers, and ambulation Review Medications Description: Clinician to review medications with patient/caregiver each visit and report any changes to family caseworker and/or supervising PT Problem:Therapies Medications Goal:Therapies - Understanding of Medications - Physical Therapy Completed Patient denies any medication changes since last visit. Instruct Home Safety Description: Instruct patient on strategies/modificatio ns to home environment. Problem:Home Safety Goal:Remain Safe in Home Completed Instructed patient on clear pathways, no throw rugs, tape down edgea of large area rugs, proper lighting, to use assistive device at all times, slow position changes, phone within reach at all times, and to use a nightlight at night. Reviewed emergency care plan and home health contact numbers with patient verbalizing understanding. Therapies - Vitals Description: PT , family caseworker, and/or physician to be contacted if pulse [...] Training Completed Gait training with wheeled walker 60 feet x 2 with stand by assist with cues to improve upright posture, heel strike, push off, step length, foot clearance. Therapies - Transfer Training Description: Evaluate and instruct patient in safe transfers using appropriate body mechanics and necessary equipment to perform safe transfers. Problem:Therapies Transfer Training Goal:Physical Therapy - Transfer Training Completed Patient was instructed on proper technique for sit <> stand transfers with cues to scoot to edge of chair, lean forward sufficiently to get center of gravity over base of support and push up with hands. Patient requires cues to reach back with hands and control descent during stand to sit transfers. Patient assist varies depending on level of fatigue and positioning for transfers from stand by assist to min assist. Therapies Balance Description: Assess balance and perform balance activities to decrease risk of falls Problem:PT Therapeutic Exercise Goal:PT Therapeutic Exercise Completed Worked on standing balance without upper extremity support including weight shifting and reaching. Therapies - Therapeutic Exercise Description: HEP for lower extremity strengthening to assist with transfers and ambulation. Problem:PT Therapeutic Exercise Goal:PT Therapeutic Exercise Completed Patient was instructed on and performed lower extremity strengthening exercises in sitting and standing with cues for range of motion, pace, alignment, and end of range holds. Patient performs 15 reps seated ankle dorsiflexion and plantarflexion, knee extension, hip flexion, and hip abduction and adduction. In standing with contact guard assist, patient performed 10 reps marches and minisquats. documented in this encounter Care Teams Telephonic Case Manager Relationship Specialty Start Date End Date Cecilio Aldrich MD [address] [place] [address] PCP - General SEMICONDUCTOR PACKAGES TESTER 12/10/18 02/09/19 Damon Swanson MD [address] [place] [address] INTERNAL MEDICINE 12/10/18 documented as of this encounter
--- OUTSIDE RECORDS SUMMARY | 2024-02-26 21:26 | XMS_ITS | Encounter Summary ---
Author Organization [facility] Address [address] [place] [address]. [place], [place] [address] [place] [address] Care Team Providers Care Wage Conciliator Name Role Phone Cecilio Aldrich MD Primary Care Provider [phone] Damon Swanson MD Unavailable [phone] Encounter Details Date Type Department Care Team (Latest Contact Info) Description 12/27/2018 4:15 PM CDT Home Care Visit [address] [place] [address] [place] [address] Daniela Harrington, PLAYGROUND ATTENDANT PLAYGROUND ATTENDANT HH/HOSPICE TELEPHONE ENCOUNTER/VISIT Social History Tobacco Use [...] Description Start Date Status Goals Interve ntions PLAYGROUND ATTENDANT Community Resource Planning Disciplines: Medical Social Work Assist with community resources 12/26/2018 Active 1 goal linked to scheduled/documen monalisa intervention 1 goal intervention scheduled/document ed in this visit Goals Goal Associated Problem Outcome Goal Met? Visit Notes PLAYGROUND ATTENDANT Community Resource Planning Description: Patient will move to assisted living/nursing facility of choice for so that level of care needs are better met by 01/22/19. PLAYGROUND ATTENDANT Community Resource Planning No Interventions Intervention Associated Problem/Goal Status Variance Visit Notes PLAYGROUND ATTENDANT community resource planning Description: PLAYGROUND ATTENDANT to assist with community resource planning related to more supportive living arrangement. Patient reports that she lives with her granddaughter, but she does not provide any assistance other than letting patient sleep on the couch and occasionally provides some food for patient. Patient reports that she is interested in moving to an assisted living/longterm. Patient reports preference for [facility] [place] [facility] for assisted living and did not have a preference for nursing facility. PLAYGROUND ATTENDANT spoke with Sylvia Reynaga RN case manager who confirms that due to patient's inability to transfer independently, patient would be more appropriate for longterm care over [facility] care. PLAYGROUND ATTENDANT to contact area nursing facilities for bed availability to obtain fax number to insure patient's information if forwarded to those facilities for admission review. Problem:PLAYGROUND ATTENDANT Community Resource Planning Goal:PLAYGROUND ATTENDANT Community Resource Planning Scheduled documented in this encounter Care Teams Wage Conciliator Relationship Specialty Start Date End Date Cecilio Aldrich MD [address] [place] [address] PCP - General SHOP MECHANIC 12/10/18 02/09/19 Damon Swanson MD [address] [place] [address] INTERNAL MEDICINE 12/10/18 documented as of this encounter
--- OUTSIDE RECORDS SUMMARY | 2024-02-26 21:26 | XMS_ITS | Encounter Summary ---
Author Organization [facility] Address [address] [place] [address]. [place] [address] [place] [address] Care Team Providers Care Mark Up Designer Name Role Phone Cecilio Aldrich MD Primary Care Provider [phone] Damon Swanson MD Unavailable [phone] Encounter Details Date Type Department Care Team (Late st Contact Info) Description 12/26/2018 8:00 AM CDT Home Care Visit [facility] Care [address] [place] [address] [place] [address] Deneen Wilkes, ONIEL [address] [place] [address] NICHOLS HOME VISIT Social History Tobacco Use Types [...] Sign Reading Time Taken Comments Blood Pressure 128/70 12/26/2018 8:46 AM CDT Pulse 80 12/26/2018 8:46 AM CDT Temperature 35.6 ??C (96.1 ??F) 12/26/2018 8:46 AM CD T Respiratory Rate 18 12/26/2018 8:46 AM CDT Oxygen Saturation - - Inhaled Oxygen Concentration - - Weight - - Height - - Body Mass Index - - documented in this encounter Plan of Treatment Not on file documented as of this encounter Visit Diagnoses Not on filedocumented in this encounter Home Health Visit - Care Plan Visit Details Visit Type -NICHOLS - Home Visi t Discipline -Occupational Therapy Problems Problem Description Start Date Status Goals Interve ntions Care Coordination Disciplines: Occupational Therapy Management and coordination of patient care 12/20/2018 Active 1 goal linked to scheduled/documen monalisa intervention 1 goal intervention scheduled/document ed in this visit Homebound Status Disciplines: Occupational Therapy Patient meets requirements of homebound status as evidenced by decreased balance, endurance and safety to leave home without assistance from caregiver. 12/20/2018 Active 1 goal linked to scheduled/documen monalisa intervention A Plan for Next Visit Disciplines: Occupational Therapy Plan for next visit 12/20/2018 Active 1 goal linked to scheduled/documen monalisa intervention 1 goal intervention scheduled/document ed in this visit Therapies Medications Disciplines: Occupational Therapy Management of home medications 12/20/2018 Active 1 goal linked to scheduled/documen monalisa intervention 1 goal intervention scheduled/document ed in this visit Therapies Transfer Training Disciplines: Occupational Therapy Transfer training 12/20/2018 Active 1 goal linked to scheduled/documen monalisa intervention 1 goal intervention scheduled/document ed in this visit Home Safety Disciplines: Occupational Therapy Management and evaluation of patient's home environment 12/20/2018 Active 1 goal linked to scheduled/documen monalisa intervention 1 goal intervention scheduled/document ed in this visit Therapies Vitals Disciplines: Occupational Therapy Obtain VS 12/20/2018 Active 1 goal linked to scheduled/documen monalisa intervention 1 goal intervention scheduled/document ed in this visit OT Fine Motor Coordination Disciplines: Occupational Therapy Fine motor exercises 12/20/2018 Active 1 goal linked to scheduled/documen monalisa intervention 1 goal intervention scheduled/document ed in this visit OT IADL/ADL Training Disciplines: Occupational Therapy ADL training 12/20/2018 Active 1 goal linked to scheduled/documen monalisa intervention 1 problem intervention scheduled/document ed in this visit Goals Goal Associated Problem Outcome Goal Met? Visit Notes Coordination of Care/Interpretive Services Description: Patient and caregiver informed of care plan, verbalized good understanding and is in agreement. Care Coordination Progressing No OT - Homebound Status Description: Patient meets requirements of homebound status as evidenced by decreased balance, endurance and safety to leave home without assistance from caregiver. Homebound Status Completed Yes Provide Continuity of Care Description: To provide continuity of care A Plan for Next Visit Progressing No Therapies - Understanding of Medications - Occupational Therapy Description: Patient/caregiver will verbalize understanding of medication regimen throughout POC. Therapies Medications Progressing No Occupational Therapy - Transfer Training Description: Patient to complete toilet transfer with DME PRN and supervision only in 2 weeks. Patient to complete shower transfer with use of DME PRN and supervision only in 3 weeks. Therapies Transfer Training Progressing No Remain Safe in Home Description: Patient will remain safe in their home as evidenced by no falls or injuries, throughout POC. Home Safety Progressing No Occupational Therapy - Vital Signs Description: Vital signs to be monitored as needed including pulse oximetry and changes or concerns reported to supervising therapist, immigration case worker and or provider. Therapies Vitals Met This Shift No OT Fine Motor Coordination Description: Patient to demonstrate good understanding in resisted hand exercises for increased strength to complete fine motor activities in 2 weeks. OT Fine Motor Coordination Progressing No OT ADL Training Description: Patient to complete dressing task with set-up only in 3 weeks with use of DME PRN and good safety awareness. Patient to complete toileting task with use of DME PRN with supervision only and good safety awareness. OT IADL/ADL Training Progressing No Interventions Intervention Associated Problem/Goal Status Variance Visit Notes Care Plan Collaboration Description: Clinician to review care plan with patient/caregiver. Patient/caregiver agrees to plan of care and agree to participate in care. Problem:Care Coordination Goal:Coordination of Care/Interpretive Services Completed collaboration with care plan Plan for Next Visit Description: Next visit plan summation Problem:A Plan for Next Visit Goal:Provide Continuity of Care Completed Patient made aware of next scheduled visit with understanding verbalized. Calendar up to date. Medication Reconciliation Description: Clinician to review medications with patient each isit and report any changes to immigration case worker and/or supervising OT. Problem:Therapies Medications Goal:Therapies - Understanding of Medications - Occupational Therapy Completed no medication changes, per patient and updated list in home Therapies - Transfer Training Description: Instruct patient in obtaining DME and proper use of DME in home with proper transfer techniques. Problem:Therapies Transfer Training Goal:Occupational Therapy - Transfer Training Completed Ed patient on use of bathroom DME for increased ease and safety awareness for transfers. Patient ed on use of RTS with rails and shower chair and how to obtain, understanding verbalized. Patient required mod A sit to stand from couch this date. Patient min A to slowly descend to sit on standard toilet. Patient required mod A sit to stand from standard toilet. Patient CGA for walk in shower transfer this date. Instruct Home Safety Description: Instruct patient/caregiver on strategies/modificati ons to home environment including fall prevention measures. Problem:Home Safety Goal:Remain Safe in Home Completed Reviewed safety awareness and fall prevention measures including use of AD/DME, nonskid footwear, use of night lights, and clear pathways. Understanding verbalized. Therapies - Vitals Description: OT, immigration case worker and/or physician to be contacted if pulse ox is consistently below 88%, temp greater than 100.5, systolic BP greater than 180 or less than 90 and diastolic BP greater than 90 or less than 50 and respirations less tahn 12 or greater than 24. Problem:Therapies Vitals Goal:Occupational Therapy - Vital Signs Completed vitals WNL OT fine motor coordination Description: Occupational Therapist to visit to develop HEP to enhance skills and performance in fine motor and dexterity related to neuropathy and overall hand weakness. Problem:OT Fine Motor Coordination Goal:OT Fine Motor Coordination Completed Instructed patient in B UE HEP to increase strength and endurance for functional transfers and ADLs. Patient completed ther ex in shoulder flexion, abduction, chest press, ceiling punch, elbow flexion/extension, and shoulder shrugs. Patient completed 10 reps in all planes while seated on couch. Patient completed hand ther ex focusin on FMC activities. Patient completed bead stringing tasks with min A due to poor coordination. Will continue to train. OT ADL training Description: Instruct patient in compensatory techniques and safety awareness for increased self care independence. Problem:OT IADL/ADL Training Completed Ed patient on safety awareness and adaptive strategies for ADL tasks. Patient required max A to don shoes while seated on recliner. Patient completed toileting task with no pants on and was able to complete perineal hygiene following urination with SBA. documented in this encounter Care Teams Mark Up Designer Relationship Specialty Start Date End Date Cecilio Aldrich MD [address] [place] [address] PCP - General TEA BLENDER 12/10/18 02/09/19 Damon Swanson MD [address] [place] [address] INTERNAL MEDICINE 12/10/18 documented as of this encounter
--- OUTSIDE RECORDS SUMMARY | 2024-02-26 21:26 | XMS_ITS | Encounter Summary ---
Author Organization [facility] Address [address] [place] [address]. [place], [place] [id number] [place] [address] Care Team Providers Care Environmental Health Officer Name Role Phone Cecilio Aldrich MD Primary Care Provider [phone] Damon Swanson MD Unavailable [phone] Encounter Details Date Type Department Care Team (Latest Contact Info) Description 12/26/2018 1:15 PM CDT Home Care Visit [address] [place] [address] [place] [address] Daniela Harrington, RIVET MAKER RIVET MAKER INITIAL EVALUATION Social History Tobacco Use Types [...] - Care Plan Visit Details Visit Type -RIVET MAKER - Initial Ev aluation Discipline -Medical Social Work Problems Problem Description Start Date Status Goals Interve ntions Homebound Status Disciplines: Medical Social Work Patient meets requirements of homebound status as evidenced by high fall risk, requires assistance for transfers, unable to leave home safely without assistance. 12/26/2018 Active 1 goal linked to scheduled/documen monalisa intervention RIVET MAKER Community Resource Planning Disciplines: Medical Social Work Assist with community resources 12/26/2018 Active 1 goal linked to scheduled/documen monalisa intervention 1 goal intervention scheduled/document ed in this visit Goals Goal Associated Problem Outcome Goal Met? Visit Notes RIVET MAKER - Homebound Status Description: Patient meets requirements of homebound status as evidenced by high fall risk, requires assistance for transfers, unable to leave home safely without assistance. Homebound Status Progressing No RIVET MAKER Community Resource Planning Description: Patient will move to assisted living/nursing facility of choice for so that level of care needs are better met by 01/22/19. RIVET MAKER Community Resource Planning Progressing No Interventions Intervention Associated Problem/Goal Status Variance Visit Notes RIVET MAKER community resource planning Description: RIVET MAKER to assist with community resource planning related to more supportive living arrangement. Patient reports that she lives with her granddaughter, but she does not provide any assistance other than letting patient sleep on the couch and occasionally provides some food for patient. Patient reports that she is interested in moving to an assisted living/penitentiary. Patient reports preference for [facility] in [place] and [facility] for assisted living and did not have a preference for nursing facility. RIVET MAKER spoke with Sylvia Reynaga RN case manager who confirms that due to patient's inability to transfer independently, patient would be more appropriate for penitentiary care over LONG TERM care. RIVET MAKER to contact area nursing facilities for bed availability to obtain fax number to insure patient's information if forwarded to those facilities for admission review. Problem:RIVET MAKER Community Resource Planning Goal:RIVET MAKER Community Resource Planning Completed documented in this encounter Care Teams Environmental Health Officer Relationship Specialty Start Date End Date Cecilio Aldrich MD [address] [place] [address] PCP - General COMPUTER TECHNOLOGIST 12/10/18 02/09/19 Damon Swanson MD [address] [place] [address] INTERNAL MEDICINE 12/10/18 documented as of this encounter
--- OUTSIDE RECORDS SUMMARY | 2024-02-26 21:26 | XMS_ITS | Encounter Summary ---
Author Organization [facility] Address [address] [place] [address]. [place] [address] [place] [address] Care Team Providers Care Wheel Cutter Name Role Phone Cecilio Aldrich MD Primary Care Provider [phone] Damon Swanson MD Unavailable [phone] Encounter Details Date Type Department Care Team (Late st Contact Info) Description 12/20/2018 8:30 AM CDT Home Care Visit [address] [place] [address] [place] [address] Yazmin Rodriguez HOME VISIT Social History Tobacco [...] Sign Reading Time Taken Comments Blood Pressure 140/60 12/20/2018 8:43 AM CDT Pulse 68 12/20/2018 8:43 AM CDT Temperature 36.8 ??C (98.2 ??F) 12/20/2018 8:43 AM CD T Respiratory Rate 16 12/20/2018 8:43 AM CDT Oxygen Saturation - - Inhaled [...] Notes Hygiene Needs Met with Assist of MINE EXPERT Description: Hygiene and safety needs will be met with assist of MINE EXPERT by 02/14/19. Client will progress towards increased independence in performance of self cares. Aide for personal cares/mobility/ADL's Met This Shift No Interventions Intervention Associated Problem/Goal Status Variance Visit Notes Aide Communication tool Description: Complete MINE EXPERT communication Problem:Aide for personal cares/mobility/ADL's Goal:Hygiene Needs Met with Assist of MINE EXPERT Completed Last BM Date: N0 Shampoo: No Bathing: Complete Nail Care: No Clothing change: Yes Bruised, open or red areas Nurse notified or aware: No Aide assist with shampoo Description: Assist with shampooing hair Problem:Aide for personal cares/mobility/ADL's Goal:Hygiene Needs Met with Assist of MINE EXPERT Completed Aide cleanse perineal Description: Cleanse perineal area Problem:Aide for personal cares/mobility/ADL's Goal:Hygiene Needs Met with Assist of MINE EXPERT Completed Aide personal care Description: Personal Care: shampoo hair, brush teeth, skin care and apply cream/lotion Problem:Aide for personal cares/mobility/ADL's Goal:Hygiene Needs Met with Assist of MINE EXPERT Completed Aide inspect skin Description: Inspect skin for signs of pressure or irritation. After bathing reapply moisturizer and moisture barrier. Report any observed or patient reported concerns to RN. Problem:Aide for personal cares/mobility/ADL's Goal:Hygiene Needs Met with Assist of MINE EXPERT Completed Aide tub/shower bath Description: Assistance with bathing using tub, hand-held shower and bath bench. Clean shower after bathing. Problem:Aide for personal cares/mobility/ADL's Goal:Hygiene Needs Met with Assist of MINE EXPERT Completed documented in this encounter Care Teams Wheel Cutter Relationship Specialty Start Date End Date Cecilio Aldrich MD [address] [place] [address] PCP - General COOLER CONVEYOR LOADER 12/10/18 02/09/19 Damon Swanson MD [address] [place] [address] INTERNAL MEDICINE 12/10/18 documented as of this encounter
--- OUTSIDE RECORDS SUMMARY | 2024-02-26 21:26 | XMS_ITS | Encounter Summary ---
Author Organization [facility] Address [address] [place] [address]. [place] [address] [place] [address] Care Team Providers Care Staying Machine Operator Name Role Phone Cecilio Aldrich MD Primary Care Provider [phone] Damon Swanson MD Unavailable [phone] Encounter Details Date Type Department Care Team (Latest Contact Info) Description 12/20/2018 10:30 AM CDT Home Care Visit [address] [place] [address] [place] [address] Angeline Mejia, OT [facility] [place] [address] OT INITIAL EVALUATION Social History Tobacco Use Types [...] Sign Reading Time Taken Comments Blood Pressure 130/68 12/20/2018 10:15 AM CDT Pulse 78 12/20/2018 10:15 AM CDT Temperature 36.2 ??C (97.2 ??F) 12/20/2018 10:15 AM C DT Respiratory Rate 16 12/20/2018 10:15 AM CDT Oxygen Saturation - - Inhaled Oxygen Concentration - - Weight - - Height - - Body Mass Index - - documented in this encounter Plan of Treatment Not on file documented as of this encounter Visit Diagnoses Not on filedocumented in this encounter Home Health Visit - Care Plan Visit Details Visit Type -OT - Initial Caitlin morin Discipline -Occupational Therapy Problems Problem Description Start Date Status Goals Interve ntions Care Coordination Disciplines: Occupational Therapy Management and coordination of patient care 12/20/2018 Active 1 goal linked to scheduled/documen monalisa intervention 1 goal intervention scheduled/document ed in this visit A Plan for Next Visit Disciplines: Occupational [...] Disciplines: Occupational Therapy ADL training 12/20/2018 Active - 1 problem intervention scheduled/document ed in this visit Goals Goal Associated Problem Outcome Goal Met? Visit Notes Coordination of Care/Interpretive Services Description: Patient and caregiver informed of care plan, verbalized good understanding and is in agreement. Care Coordination No Provide Continuity of Care Description: To provide continuity of care A Plan for Next Visit No Therapies - Understanding of Medications - Occupational Therapy Description: Patient/caregiver will verbalize understanding of medication regimen throughout POC. Therapies Medications No Occupational Therapy - Transfer Training Description: Patient to complete toilet transfer with DME PRN and supervision only in 2 weeks. Patient to complete shower transfer with use of DME PRN and supervision only in 3 weeks. Therapies Transfer Training No Remain Safe in Home Description: Patient will remain safe in their home as evidenced by no falls or injuries, throughout POC. Home Safety No Occupational Therapy - Vital Signs Description: Vital signs to be monitored as needed including pulse oximetry and changes or concerns reported to supervising therapist, special education case manager and or provider. Therapies Vitals No OT Fine Motor Coordination Description: Patient to demonstrate good understanding in resisted hand exercises for increased strength to complete fine motor activities in 2 weeks. OT Fine Motor Coordination No Interventions Intervention Associated Problem/Goal Status Variance Visit Notes Care Plan Collaboration Description: Clinician to review care plan with patient/caregiver. Patient/caregiver agrees to plan of care and agree to participate in care. Problem:Care Coordination Goal:Coordination of Care/Interpretive Services Completed Patient informed of care plan and verbalized good understanding. Plan for Next Visit Description: Next visit plan summation Problem:A Plan for Next Visit Goal:Provide Continuity of Care Completed Nest visit planned for Monday with MAGDALENA Rai. Medication Reconciliation Description: Clinician to review medications with patient each isit and report any changes to special education case manager and/or supervising OT. Problem:Therapies Medications Goal:Therapies - Understanding of Medications - Occupational Therapy Completed No change in meds this date. Therapies - Transfer Training Description: Instruct patient in obtaining DME and proper use of DME in home with proper transfer techniques. Problem:Therapies Transfer Training Goal:Occupational Therapy - Transfer Training Completed Patient demonstrates decreased independence with functional transfers due to overall weakness. Instruct Home Safety Description: Instruct patient/caregiver on strategies/modificati ons to home environment including fall prevention measures. Problem:Home Safety Goal:Remain Safe in Home Completed Patient demonstrates decreased home safety with functional transfers and mobility with use of wheeled walker. Therapies - Vitals Description: OT, special education case manager and/or physician to be contacted if pulse ox is consistently below 88%, temp greater than 100.5, systolic BP greater than 180 or less than 90 and diastolic BP greater than 90 or less than 50 and respirations less tahn 12 or greater than 24. Problem:Therapies Vitals Goal:Occupational Therapy - Vital Signs Completed Vitals taken and all WNL. OT fine motor coordination Description: Occupational Therapist to visit to develop HEP to enhance skills and performance in fine motor and dexterity related to neuropathy and overall hand weakness. Problem:OT Fine Motor Coordination Goal:OT Fine Motor Coordination Completed Patient demonstrates decreased hand strength and dexterity to complete fine motor tasks and will benefit from HH OT for instruction in fine motor exercises. OT ADL training Description: Instruct patient in compensatory techniques and safety awareness for increased self care independence. Problem:OT IADL/ADL Training Completed Patient requires assistance with all ADLs at this time and will benefit from HH OT for instruction in independence and safety awareness. documented in this encounter Care Teams Staying Machine Operator Relationship Specialty Start Date End Date Cecilio Aldrich MD [address] [place] [address] PCP - General HYDROELECTRIC PLANT TECHNICIAN 12/10/18 02/09/19 Damon Swanson MD [address] [place] [address] INTERNAL MEDICINE 12/10/18 documented as of this encounter
--- OUTSIDE RECORDS SUMMARY | 2024-02-26 21:26 | XMS_ITS | Encounter Summary ---
Author Organization [facility] Address [address] [place] [address]. [place], [place] [address] [place] [address] Care Team Providers Care Game Design Instructor Name Role Phone Cecilio Aldrich MD Primary Care Provider [phone] Damon Swanson MD Unavailable [phone] Reason for Visit * Reason Comments Wound Encounter Details Date Type Department Care Team (Late st Contact Info) Description 01/03/2019 8:30 AM CDT Home Care Visit [facility] Care [address] [place] [address] Adele Zamora RN [phone] (Work) SN HOME VISIT Social History [...] Reading Time Taken Comments Blood Pressure 140/72 01/03/2019 8:19 AM CDT Pulse 80 01/03/2019 8:19 AM CDT Temperature 35.8 ??C (96.4 ??F) 01/03/2019 8:19 AM CD T Respiratory Rate 18 01/03/2019 8:19 AM CDT Oxygen Saturation - - Inhaled Oxygen Concentration - - Weight - - Height - - Body Mass Index - - documented in this encounter Plan of Treatment Not on file documented as of this encounter Visit Diagnoses Not on filedocumented in this encounter Home Health Visit - Care Plan Visit Details Visit Type -SN - Home Visit Discipline -Correction Problems Problem Description Start Date Status Goals Interve ntions Discharge Planning Disciplines: Correction Discharge Planning 12/19/2018 Active 1 goal linked to scheduled/docume nted intervention 1 goal intervention scheduled/documen monalisa in this visit Care Coordination Disciplines: Correction Management and coordination of patient care 12/19/2018 Active 1 goal linked to scheduled/docume nted intervention 2 goal interventions scheduled/documen monalisa in this visit Homebound Status Disciplines: Correction Patient meets requirements of homebound status as evidenced by 02/1412/19/2018 Active 1 goal linked to scheduled/docume nted intervention 1 problem intervention scheduled/documen monalisa in this visit A Plan for Next Visit Disciplines: Correction Plan for next visit 12/19/2018 Active 1 goal linked to scheduled/docume nted intervention 1 goal intervention scheduled/documen monalisa in this visit Home Safety Disciplines: Correction Management and evaluation of patient's home environment 12/19/2018 Active 1 goal linked to scheduled/docume nted intervention 3 goal interventions scheduled/documen monalisa in this visit Medications Disciplines: Correction Management of home medications 12/19/2018 Active 1 goal linked to scheduled/docume nted intervention 3 goal interventions scheduled/documen monalisa in this visit Blood Glucose Monitoring Disciplines: Correction Skilled assessment and evaluation of blood glucose monitoring 12/19/2018 Active 1 goal linked to scheduled/docume nted intervention 2 goal interventions scheduled/documen monalisa in this visit Management and Evaluation of the Care Plan Disciplines: Correction SN for management and evaluation of skilled services 12/19/2018 Active 1 goal linked to scheduled/docume nted intervention 1 goal intervention scheduled/documen monalisa in this visit Home Health Aide Supervisory Visit Disciplines: Correction Supervision of HH Aide, SURFBOARD MAKER or NICHOLS 12/19/2018 Active 1 goal linked to scheduled/docume nted intervention 1 goal intervention scheduled/documen monalisa in this visit Nutritional concerns Disciplines: Correction Inadequate/imbala nced nutritional concerns 12/19/2018 Active 1 goal linked to scheduled/docume nted intervention 1 goal intervention scheduled/documen monalisa in this visit Pulse Oximetry Disciplines: Correction Skilled assessment and monitoring of O2 saturations. 12/19/2018 Active 1 goal linked to scheduled/docume nted intervention 1 goal intervention scheduled/documen monalsia in this visit Wound Care Disciplines: Correction Alteration in skin integrity 12/19/2018 Active 1 goal linked to scheduled/docume nted intervention 1 problem intervention scheduled/documen monalisa in this visit 3 goal interventions scheduled/documen monalisa in this visit Goals Goal Associated Problem Outcome Goal Met? Visit Notes Progress towards discharge Description: Documentation of ongoing progress towards goals through 02/14/19. Discharge Planning Met This Shift No possible patient to go to care home after OBRA assessment by care home tomorrow Coordination of Care Achieved Description: Coordination of [...] administration of medication regimen by 02/14/19. Medications Not Progressing No patient couln't find her purse with her medication this morning. Skilled nurse looked couldn't find it. Patient stated she will find it and take her medications SN Blood Glucose Monitoring Description: Patient to have blood sugars within normal limits Blood Glucose Monitoring Not Progressing No no glucometer noone has gotten one for her after several requests SN Management and Evaluation of the Care Plan Description: Skilled services to see patient as ordered Management and Evaluation of the Care Plan Met This Shift No SN UPHOLSTERY SEWER Supervision Description: RN to supervise Home Health Aide at least every 14 days through 02/14/19. Home Health Aide Supervisory Visit Met This Shift No Nutritional Status for Optimal Health Description: Patient will demonstrate adequate nutritional status as evidenced by stabilization of weight and intake of required nutrients for optimal health and functioning by 02/14/19. Nutritional concerns Not Progressing No Patient is not eating a healthy diet today she took a container out of a dirty box for tajik take out and saved it to eat later. Skilled nurse instructed on drinking more water for hydration and healthy eating habits SN Pulse Oximetry Description: Pulse oximetry to be monitored as needed through episode of care for shortness of breath or dyspnea. Pulse Oximetry No Identify Signs/Symptoms of Infection Description: patient [...] of Medication Regimen Completed Medication reconciliation performed without weekly bottle check. Skilled assessment medications Description: [...] . Problem:Home Health Aide Supervisory Visit Goal:SN UPHOLSTERY SEWER Supervision Completed Instruct diet Description: Instruct on [...] Completed documented in this encounter Care Teams Game Design Instructor Relationship Specialty Start Date End Date Cecilio Aldrich MD [address] [place] [address] PCP - General ROLLED OATS MILL OPERATOR 12/10/18 02/09/19 Damon Swanson MD [address] [place] [address] INTERNAL MEDICINE 12/10/18 documented as of this encounter
--- OUTSIDE RECORDS SUMMARY | 2024-02-26 21:26 | XMS_ITS | Encounter Summary ---
Author Organization [facility] Address [address] [place] [address]. [place] [address] [place] [address] Care Team Providers Care Centrifugal Chiller Technician Name Role Phone Cecilio Aldrich MD Primary Care Provider [phone] Damon Swanson MD Unavailable [phone] Reason for Referral * Surgical (Routine) - Closed Specialty Diagnoses / Procedures Referred By Contza t Referred To Contact VASCULAR SURGERY Diagnoses Peripheral arterial disease (CMS/HCC) Babar Sullivan MD Referral ID Status Reason Start Date Expiration Date V isits Requested Visits Authorized [id number] Closed Specialty Services 01/15/2019 02/14/2020 1 1 ING AGENCY MANAGER Encounter Details Date Type Department Care Team (Late st Contact Info) Description 01/15/2019 11:30 AM NURSING AGENCY MANAGER Office Visit [facility] [address] [place] [address] [place] [address] Babar Sullivan MD Social History Tobacco Use [...] as of this encounter Plan of Treatment Scheduled Referrals Name Type Priority Associated Diagnoses Orde r Schedule Ambulatory Referral to Vascular Surgery Referral Routine Peripheral arterial disease Ordered: 01/15/2019 documented as of this encounter Visit Diagnoses Diagnosis Peripheral arterial disease (CMS/HCC)- Primary Peripheral vascular disease, unspecified documented in this encounter Care Teams Centrifugal Chiller Technician Relationship Specialty Start Date End Date Cecilio Aldrich MD [address] [place], [place] [id number] PCP - General CIVIL ENGINEERING DESIGN DRAFTSPERSON 12/10/18 02/09/19 Damon Swanson MD [address] [place], [place] [id number] INTERNAL MEDICINE 12/10/18 documented as of this encounter
--- OUTSIDE RECORDS SUMMARY | 2024-02-26 21:26 | XMS_ITS | Encounter Summary ---
Author Organization [facility] Address [address] [place] [address]. [place] [address] [place] [address] Care Team Providers Care Laborer Brooder Farm Name Role Phone Cecilio Aldrich MD Primary Care Provider [phone] Damon Swanson MD Unavailable [phone] Reason for Referral * Imaging (Routine) - Closed Specialty Diagnoses / Procedures Referred By Leif hilton Referred To Contact RADIOLOGY Diagnoses Chronic venous hypertension (idiopathic) with ulcer and inflammation of bilateral lower extremity (CODE) (CMS/HCC HHS/HCC) Diabetic leg ulcer (CMS/HCC HHS/HCC) Procedures MRI TIB+FIB LT WO CON Saranya Pichardo NP Referral ID Status Reason Start Date Expiration Date Visits Re quested Visits Authorized [id number] Closed 12/28/2018 01/27/2020 1 1 Reason for Visit * Imaging (Routine) - Closed Specialty Diagnoses / Procedures Referred By Leif hilton Referred To Contact RADIOLOGY Diagnoses Chronic venous hypertension (idiopathic) with ulcer and inflammation of bilateral lower extremity (CODE) (CMS/HCC HHS/HCC) Diabetic leg ulcer (CMS/HCC HHS/HCC) Procedures MRI TIB+FIB LT WO CON Saranya Pichardo NP Referral ID Status Reason Start Date Expiration Date Visits Re quested Visits Authorized [id number] Closed 12/28/2018 01/27/2020 1 1 Encounter Details Date Type Department Care Team (Latest Contact Info) Description 01/08/2019 9:57 AM CDT - 01/08/2019 11:59 PM CDT Hospital Encounter [facility] [place] [address] Saranya Pichardo NP Discharge Disposition: Home or Self Care (Routine [...] and inflammation of bilateral lower extremity (CODE) ([facility] HHS/HCC),Diabetic leg ulcer ([facility] HHS/HCC) Take 1 capsule (300 mg total) [...] Procedure Name Priority Date/Time Associated Diagnosis Comments MRI TIB+FIB LT WO CON Routine 01/08/2019 12:50 PM CDT Chronic venous hypertension (idiopathic) with ulcer and inflammation of bilateral lower extremity (CODE) ([facility] HHS/HCC) Diabetic leg ulcer ([facility] HHS/HCC) documented in this encounter Results * MRI TIB+FIB LT WO CON (01/08/2019 12:50 PM CDT) Anatomical Region Laterality Modality TibFib Magnetic Resonan ce 01/08/2019 5:21 PM CDT Impressions 01/08/2019 5:29 PM CDT =====IMPRESSION:===== 1. No osteomyelitis demonstrated. 2. Ulcerated wound of the left lower leg posterolateral aspect without abscess or drainable fluid collection. 3. Marked diffuse subcutaneous edema. 4. Diffuse muscle atrophy and mild patchy edema most likely representing chronic peripheral neuropathy. Narrative 01/08/2019 5:29 PM CDT EXAMINATION: MRI tibia-fibula ??without contrast. EXAM DATE/TIME: 01/08/2019 12:00 PM REASON FOR EXAM: ??Lower leg erythema, swelling, cellulitis suspected ? COMPARISON: Correlated with radiographs 12/28/2018 TECHNIQUE: ??Multiplanar multisequence MRI without contrast FINDINGS: No acute fracture, destructive bone lesion or suspicious bone marrow edema. Moderate diffuse muscle atrophy and mild diffuse patchy muscle edema greater distally. Moderate to severe circumferential subcutaneous edema of the entire visualized lower leg and ankle. There is an ulcerated shallow wound of the posterolateral calf measuring approximately 2 cm in diameter. No abscess or drainable fluid collection. Procedure Note Khalif Reich MD - 01/08/2019 EXAMINATION: MRI tibia-fibula without contrast. EXAM DATE/TIME: 01/08/2019 12:00 PM REASON FOR EXAM: Lower leg erythema, swelling, cellulitis suspected COMPARISON: Correlated with radiographs 12/28/2018 TECHNIQUE: Multiplanar multisequence MRI without contrast FINDINGS: No acute fracture, destructive bone lesion or suspicious bone marrow edema. Moderate diffuse muscle atrophy and mild diffuse patchy muscle edema greater distally. Moderate to severe circumferential subcutaneous edema of the entire visualized lower leg and ankle. Thereis an ulcerated shallow wound of the posterolateral calf measuring approximately 2 cm in diameter. No abscess or drainable fluid collection. =====IMPRESSION:===== 1. No osteomyelitis demonstrated. 2. Ulcerated wound of the left lower leg posterolateral aspect without abscess or drainable fluid collection. 3. Marked diffuse subcutaneous edema. 4. Diffuse muscle atrophy and mild patchy edema most likely representing chronic peripheral neuropathy. Saranya Pichardo NP MRI Final Result documented in this encounter Visit Diagnoses Diagnosis Chronic venous hypertension (idiopathic) with ulcer and inflammation of bilateral lower extremity (CODE) ([facility]) Diabetic leg ulcer ([facility]) Type II or unspecified type diabetes mellitus with other specified manifestations, not stated as uncontrolled documented in this encounter Care Teams Laborer Brooder Farm Relationship Specialty Start Date End Date Cecilio Aldrich MD [address] [place] [address] PCP - General ANTENNA RIGGER 12/10/18 02/09/19 Damon Swanson MD [address] [place] [address] INTERNAL MEDICINE 12/10/18 documented as of this encounter
--- OUTSIDE RECORDS SUMMARY | 2024-02-26 21:26 | XMS_ITS | Encounter Summary ---
Author Organization [facility] Address [address] [place] [address]. [place] [address] [place] [address] Care Team Providers Care Glue Jointer Feeder Name Role Phone Zeke Puente MD Primary Care Provider [phone] Encounter Details Date Type Department Care Team (Late st Contact Info) Description 06/13/2016 Abstract [facility] [address] [place], [place] [id number] Jennifer Gil, [facility] [address] [facility] [address] [place] [address] Social History Tobacco Use Types Packs/Day Years [...] Procedure Name Priority Date/Time Associated Diagnosis Comments BMP W IONIZED CA BLOOD STAT 06/13/2016 5:06 PM CDT CBC, AUTO, NO DIFF STAT 06/13/2016 5: 06 PM CDT documented in this encounter Results * (ABNORMAL) BMP W IONIZED CA WH BLOOD (06/13/2016 5:06 PM CDT) GLUCOSE POC 383(H) 70 - 99 mg/dL 06/13/2016 5:20 PM CDT [facility] Comment: TESTING PERFORMED AT [facility] [address] [place] [address] ??[id number] PATRICIA STEEN M.D., TITLE INVESTIGATOR BUN WHOLE BLOOD 15 8 - 23 mg/dL 06/13/2016 5:20 PM CDT [facility] CREATININE WHOLE BLOOD 0.8 0.60 - 1.10 mg/dL 06/13/2016 5:20 PM CDT [facility] SODIUM WHOLE BLOOD 136 136 - 145 mmol/L 06/13/2016 5:20 PM CDT [facility] POTASSIUM WHOLE BLOOD 3.5 3.5 - 5.1 mmol/L 06/13/2016 5:20 PM CDT [facility] CHLORIDE WHOLE BLOOD 91(L) 98 - 107 mmol/L 06/13/2016 5:20 PM CDT [facility] POC CO2 WHOLE BLOOD 34(H) 22 - 29 mmol/L 06/13/2016 5:20 PM CDT [facility] CA IONIZED WH BLOOD 1.01(L) 1.12 - 1.32 mmol/L 06/13/2016 5:20 PM CDT [facility] ANION GAP 14.5 8 - 20 MMOL/L 06/13/2016 5:20 PM CDT [facility] EGFR NON-AFR. AMER. >60 >60 mL/min/1.7 [facility] 06/13/2016 5:20 PM T [facility] EGFR AFR. AMER. >60 >60 mL/min/1.7 [facility] 06/13/2016 5:20 PM T [facility] Comment: NOTE: eGFR is not calculated for patients <18 years of age. This is an estimated GFR (CKD EPI) and should not be used for calculating drug doses. 06/13/2016 5:06 PM CDT 06/13/2016 5:10 PM CDT us Generic Conversion Md [facility] Final R esult [facility] [address] [place] [address], * (ABNORMAL) CBC, AUTO, NO DIFF (06/13/2016 5:06 PM CDT) WBC 3.4(L) 4.8 - 10.8 x10'3/uL 06/13/2016 5:18 PM CDT [facility] Comment: TESTING PERFORMED AT [address] ??[id number] PATRICIA STEEN M.D., TITLE INVESTIGATOR RBC 3.51(L) 4.20 - 5.40 x10'6/uL 06/13/2016 5:18 PM CDT [facility] HGB 11.0(L) 12.0 - 16.0 G/DL 06/13/2016 5:18 PM CDT [facility] HCT 31.4(L) 38.0 - 48.0 % 06/13/2016 5:18 PM CDT [facility] MCV 89.5 81.0 - 99.0 FL 06/13/2016 5:18 PM CDT [facility] MCH 31.3(H) 27.0 - 31.0 PG 06/13/2016 5:18 PM CDT [facility] MCHC 35.0 32.0 - 36.0 G/DL 06/13/2016 5:18 PM CDT [facility] RDW 13.9 11.5 - 14.5 % 06/13/2016 5:18 PM CDT [facility] PLT 198 130 - 400 x10'3/uL 06/13/2016 5:18 PM CDT [facility] MPV 9.0(L) 9.3 - 12.2 FL 06/13/2016 5:18 PM CDT [facility] 06/13/2016 5:06 PM CDT 06/13/2016 5:10 PM CDT us Generic Conversion Md [facility] Final R esult [facility] [address] [place] [address], [place] [phone] documented in this encounter Visit Diagnoses Diagnosis Abdominal hernia without obstruction or gangrene Hernia of unspecified site of abdominal cavity without mention of obstruction or gangrene documented in this encounter Care Teams Glue Jointer Feeder Relationship Specialty Start Date End Date Zeke Puente MD [address] [place] [address] PCP - General 06/13/16 12/09/18 documented as of this encounter
--- OUTSIDE RECORDS SUMMARY | 2024-02-26 21:26 | XMS_ITS | Encounter Summary ---
Author Organization [facility] Address [address] [place] [address]. [place] [address] [place] [address] Care Team Providers Care Php Web Developer Name Role Phone Cecilio Aldrich MD Primary Care Provider [phone] Damon Swanson MD Unavailable [phone] Encounter Details Date Type Department Care Team (Late st Contact Info) Description 12/17/2018 Plan of Care Documentation [address] [place] [address] Social History Tobacco Use Types Packs/Day Years [...] on filedocumented in this encounter Care Teams Php Web Developer Relationship Specialty Start Date End Date Cecilio Aldrich MD [address] [place] [address] PCP - General DEVELOPMENTAL ELECTRONICS ASSEMBLER 12/10/18 02/09/19 Damon Swanson MD [address] [place] [address] INTERNAL MEDICINE 12/10/18 documented as of this encounter
--- OUTSIDE RECORDS SUMMARY | 2024-02-26 21:26 | XMS_ITS | Encounter Summary ---
Author Organization [facility] Address [address] [place] [address]. [place], [place] [address] [place] [address] Care Team Providers Care Finishing Range Supervisor Name Role Phone Cecilio Aldrich MD Primary Care Provider [phone] Damno Swanson MD Unavailable [phone] Encounter Details Date Type Department Care Team (Late st Contact Info) Description 12/26/2018 9:30 AM CDT Home Care Visit [address] [place] [address] Cris Lim, ROLL SKINNER PT HOME VISIT Social History Tobacco Use [...] Time Taken Comments Blood Pressure 120/72 12/26/2018 10:37 AM CDT Pulse 74 12/26/2018 10:37 AM CDT Temperature 35.9 ??C (96.6 ??F) 12/26/2018 10:37 AM C DT Respiratory Rate 18 12/26/2018 10:37 AM CDT Oxygen Saturation - - Inhaled [...] changes or concerns reported to supervising therapist, trimming caser, and/or provider. Therapies Vitals Met This Shift No PT Gait Training Description: LTG- Patient to ambulate independently indoors with device as needed for 100 feet to assist with MD appointments by 01/11/2019 PT Gait Training Progressing No Pt has decreased tolerance to gait and standing activities Physical Therapy - Transfer Training Description: LTG - Patient to perform bed/furniture transfers independently by 01/11/1029 Therapies Transfer Training Met This Shift No PT Therapeutic Exercise Description: LTG - [...] Problem:Care Coordination Goal:Coordination of Care/Interpretive Services Completed Pt does participate well with care, just has decreased tolerance. Plan for Next Visit Description: Next visit plan summation Problem:A Plan for Next Visit Goal:Provide Continuity of Care Completed Increase standing tolerance and activity tolerance Review Medications Description: Clinician to review medications with patient/caregiver each visit and report any changes to trimming caser and/or supervising PT Problem:Therapies Medications Goal:Therapies - Understanding of Medications - Physical Therapy Completed No new meds and patient has not had to take tylenol for pain for a couple days Instruct Home Safety Description: Instruct patient on strategies/modificatio ns to home environment. Problem:Home Safety Goal:Remain Safe in Home Completed Pt would benefit from elevated sitting surface and educated daughter on that Therapies - Vitals Description: PT , trimming caser, and/or physician to be contacted if pulse [...] Gait Training Goal:PT Gait Training Completed Pt received gait training for 65' x 1 with ww and cga on level surface. Pt began complaining of fatigue at 40' x 1. Attempted to encourage patient to increase distance, but patient replied, I just can't do it. Therapies - Transfer Training Description: Evaluate and instruct patient in safe transfers using appropriate body mechanics and necessary equipment to perform safe transfers. Problem:Therapies Transfer Training Goal:Physical Therapy - Transfer Training Completed Pt received transfer training x 5 for sit to stand transfers with moderate assist due to low sitting surface and decreased rom. Pt did require instruction on hand placement/foot placement and sequencing to decrease effort and decrease reliance on assist while improving safety Therapies Balance Description: Assess balance and perform balance activities to decrease risk of falls Problem:PT Therapeutic Exercise Goal:PT Therapeutic Exercise Completed Pt performed static stand balance unsupported with cga and weight shifting activites. Pt reported feeling dizzy during balance activities Therapies - Therapeutic Exercise Description: HEP for lower extremity strengthening to assist with transfers and ambulation. Problem:PT Therapeutic Exercise Goal:PT Therapeutic Exercise Completed Pt received aarom x 20 reps in sitting for ankle df/pf, knee ext/flex, hip flexion and hip ab. Pt's rom significantly limited for bilateral pf and knee ext on the right. Pt does require verbal and tactile cues to move through full rom to faciliated increased strength and rom. Pt also received stretching to right hamstrings and gastrocs x 4 reps for 45 seconds. Pt was able to actively move through increased knee ext range after stretching documented in this encounter Care Teams Finishing Range Supervisor Relationship Specialty Start Date End Date Cecilio Aldrich MD [address] [place] [address] PCP - General MICROARRAY ANALYST 12/10/18 02/09/19 Damon Swanson MD [address] [place] [address] INTERNAL MEDICINE 12/10/18 documented as of this encounter
--- OUTSIDE RECORDS SUMMARY | 2024-02-26 21:26 | XMS_ITS | Encounter Summary ---
Author Organization [facility] Address [address] [place] [address]. [place] [address] [place] [address] Care Team Providers Care Business Unit Manager Name Role Phone Cecilio Aldrich MD Primary Care Provider [phone] Damon Swanson MD Unavailable [phone] Encounter Details Date Type Department Care Team (Late st Contact Info) Description 01/02/2019 8:00 AM CDT Home Care Visit [facility] [address] [place] [address] Deneen Wilkes, [address] [place] [address] [facility] Social History Tobacco Use [...] Sign Reading Time Taken Comments Blood Pressure 112/62 01/02/2019 8:38 AM CDT Pulse 80 01/02/2019 8:38 AM CDT Temperature 36.8 ??C (98.2 ??F) 01/02/2019 8:38 AM CD T Respiratory Rate 18 01/02/2019 8:38 AM CDT Oxygen Saturation - - Inhaled [...] is in agreement. Care Coordination Progressing No Provide Continuity of Care Description: To [...] changes or concerns reported to supervising therapist, skilled nursing case manager and or provider. Therapies Vitals Met This [...] each isit and report any changes to skilled nursing case manager and/or supervising OT. Problem:Therapies Medications Goal:Therapies - Understanding of Medications - Occupational Therapy Completed no medication changes, per patient and updated list in home Therapies - Transfer Training Description: Instruct patient in obtaining DME and proper use of DME in home with proper transfer techniques. Problem:Therapies Transfer Training Goal:Occupational Therapy - Transfer Training Completed Ed patient on safe transfer technique and fall prevention measures. Patient completed sit to stand from couch with mod A. Patient completed funcitonal mobility from liviing room <> bathroom with use of walker. Patient completed toilet transfer with mod A for descending to sit. Patient min A sit to stand from standard toilet. Patient completed walk in shower transfer with min A. Patient would benefit from bathroom DME of RTS and grab bars. Instruct Home Safety Description: Instruct patient/caregiver on strategies/modificati ons to home environment including fall prevention measures. Problem:Home Safety Goal:Remain Safe in Home Completed Reviewed safety awareness and fall prevention measures including use of AD/DME, nonskid footwear, use of night lights, and clear pathways. Understanding verbalized. Therapies - Vitals Description: OT, skilled nursing case manager and/or physician to be contacted [...] Coordination Goal:OT Fine Motor Coordination Completed Patient completed in-hand manipulation tasks and FMC tasks to increase FMC and coordination for functional tasks. OT ADL training Description: Instruct patient in compensatory techniques and safety awareness for increased self care independence. Problem:OT IADL/ADL Training Completed Ed patient on adapitve strategies and techniques for ADLs. Patient completed UB dressing of donning and doffing shirt with SBA while seated on toilet. Patient does not wear pants or depends at this time. documented in this encounter Care Teams Business Unit Manager Relationship Specialty Start Date End Date Cecilio Aldrich MD [address] [place] [address] PCP - General INSULATION PACKER 12/10/18 02/09/19 Damon Swanson MD [address] [place] [address] INTERNAL MEDICINE 12/10/18 documented as of this encounter
--- OUTSIDE RECORDS SUMMARY | 2024-02-26 21:26 | XMS_ITS | Encounter Summary ---
Author Organization [facility] Address [address] [place] [address]. [place] [address] [place] [address] Care Team Providers Care Racker Octave Board Name Role Phone Ceciilo Aldrich MD Primary Care Provider [phone] Damon Swanson MD Unavailable [phone] Encounter Details Date Type Department Care Team (Latest Contact Info) Description 01/07/2019 3:00 PM CDT Home Care Visit [address] [place] [address] Daniela Harrington, IDENTIFICATION TECHNICIAN TELEPHONE ENCOUNTER Social History Tobacco Use Types Packs/Day Years [...] on filedocumented in this encounter Care Teams Racker Octave Board Relationship Specialty Start Date End Date Cecilio Aldrich MD [address] [place] [address] PCP - General ANESTHESIA ATTENDING 9/30/19 11/30/19 Damon Swanson MD [address] [place] [address] INTERNAL MEDICINE 12/10/18 documented as of this encounter
--- OUTSIDE RECORDS SUMMARY | 2024-02-26 21:26 | XMS_ITS | Encounter Summary ---
Author Organization [facility] Address [address] [place] [address]. [place] [address] [place] [address] Care Team Providers Care Featheredger And Reducer Machine Name Role Phone Cecilio Aldrich MD Primary Care Provider [phone] Damon Swanson MD Unavailable [phone] Encounter Details Date Type Department Care Team (Late st Contact Info) Description 01/09/2019 8:00 AM CDT Home Care Visit [facility] [address] [place] [address] Deneen Wilkes, [address] [place] [address] [facility] Social History Tobacco Use [...] Sign Reading Time Taken Comments Blood Pressure 132/80 01/09/2019 8:32 AM CDT Pulse 78 01/09/2019 8:32 AM CDT Temperature 35.9 ??C (96.7 ??F) 01/09/2019 8:32 AM CD T Respiratory Rate 18 01/09/2019 8:32 AM CDT Oxygen Saturation - - Inhaled [...] changes or concerns reported to supervising therapist, manager case and or provider. Therapies Vitals Met This [...] with understanding verbalized. Calendar up to date. Patient made aware of possible OT d/c next visit, understanding verbilized. Medication Reconciliation Description: Clinician to review medications with patient each isit and report any changes to manager case and/or supervising OT. Problem:Therapies Medications Goal:Therapies - Understanding of Medications - Occupational Therapy Completed no medication changes, per patient and updated list in home Therapies - Transfer Training Description: Instruct patient in obtaining DME and proper use of DME in home with proper transfer techniques. Problem:Therapies Transfer Training Goal:Occupational Therapy - Transfer Training Completed Ed patient on safe transfer technique and fall prevention meausres. Patient completed sit to stand from couch with SBA and extra time. Patient completed standard toilet transfer with use of vanity for slowly descending with SBA. Patient completed walk in shower transfer with walker with CGA. Patient ed on removal of throw rugs, as patient almost tripped twice over a rug this date. Patient states [facility] and she wants things like this, i cant do anything about it. Patient completed 3 sit to stands from couch with SBA and v/c to reach back before being seated. Instruct Home Safety Description: Instruct patient/caregiver on strategies/modifica tions to home environment including fall prevention measures. Problem:Home Safety Goal:Remain Safe in Home Completed Reviewed safety awareness and fall prevention measures including use of AD/DME, nonskid footwear, use of night lights, and clear pathways. Understanding verbalized. Therapies - Vitals Description: OT, manager case and/or physician to be contacted if pulse [...] Motor Coordination Goal:OT Fine Motor Coordination Completed with variance Defer to next visit OT ADL training Description: Instruct patient in compensatory techniques and safety awareness for increased self care independence. Problem:OT IADL/ADL Training Completed Patient donned skirt overhead and was able to pull it down and complete LB clothing management with SBA with one UE support on walker. Patient completed donning and doffing of overhead shirt with SBA and min A to pull down back of shirt while seated on couch. documented in this encounter Care Teams Featheredger And Reducer Machine Relationship Specialty Start Date End Date Cecilio Aldrich MD [address] [place] [address] PCP - General PRODUCTION TEAM MANAGER 12/10/18 02/09/19 Damon Swanson MD [address] [place] [address] INTERNAL MEDICINE 12/10/18 documented as of this encounter
--- OUTSIDE RECORDS SUMMARY | 2024-02-26 21:26 | XMS_ITS | Encounter Summary ---
Author Organization [facility] Address [address] [place] [address]. [place] [address] [place] [address] Care Team Providers Care Geopolitics Teacher Name Role Phone Cecilio Aldrich MD Primary Care Provider [phone] Damon Swanson MD Unavailable [phone] Encounter Details Date Type Department Care Team (Late st Contact Info) Description 12/10/2018 8:15 AM CDT Office Visit [facility] [address] [place] [address] Babar Sullivan MD Social History Tobacco Use [...] on file documented as of this encounter Progress Notes * Babar Sullivan MD - 12/10/2018 8:15 AM CDTAddended by: BABAR SULLIVAN on: 12/10/2018 12:36 PM Modules accepted: Orders documented in this encounter Plan of Treatment Not on file documented as of this encounter Procedures Procedure Name Priority Date/Time Associated Diagnosis Comments POCT GLUCOSE - CHONG DOCKED DEVICE Routine 12/10/2018 10:28 AM CDT documented in this encounter Results * (ABNORMAL) POCT glucose (12/10/2018 10:28 AM CDT) GLUCOSE POC 485(HH) 70 - 99 mg/dL 12/10/2018 12:06 PM CDT [facility] ORDERS INTERFACE 12/10/2018 10:2 8 AM CDT us Babar Sullivan MD POCT ORDERABLES - DEVICE Final R esult [facility] ORD[facility] INTERFACE US documented in this encounter Visit Diagnoses Diagnosis Diabetic leg ulcer (CMS/[facility] HHS/[facility])- Primary Type II or unspecified type diabetes mellitus with other specified manifestations, not stated as uncontrolled documented in this encounter Care Teams Geopolitics Teacher Relationship Specialty Start Date End Date Cecilio Aldrich MD [address] [place] [address] PCP - General DROP MACHINE OPERATOR 12/10/18 02/09/19 Damon Swanson MD [address] [place] [address] INTERNAL MEDICINE 12/10/18 documented as of this encounter
--- OUTSIDE RECORDS SUMMARY | 2024-02-26 21:26 | XMS_ITS | Encounter Summary ---
Author Organization [facility] Address [address] [place] [address]. [place] [address] [place] [address] Care Team Providers Care Code Enforcement Officer Name Role Phone Cecilio Aldrich MD Primary Care Provider [phone] Damon Swanson MD Unavailable [phone] Encounter Details Date Type Department Care Team (Late st Contact Info) Description 01/09/2019 2:30 PM CDT Home Care Visit [address] [place] [address] [place] [address] Daniela Harrington, RECEPTIONIST DOCTOR'S OFFICE CASE COMMUNICATION Social History Tobacco Use Types [...] on filedocumented in this encounter Care Teams Code Enforcement Officer Relationship Specialty Start Date End Date Cecilio Aldrich MD [address] [place] [address] PCP - General SFDC ARCHITECT 12/10/18 02/09/19 Damon Swanson MD [address] [place] [address] INTERNAL MEDICINE 12/10/18 documented as of this encounter
--- OUTSIDE RECORDS SUMMARY | 2024-02-26 21:26 | XMS_ITS | Encounter Summary ---
Author Organization [facility] Address [address] [place] [address]. [place] [address] [place] [address] Care Team Providers Care Red Lead Burner Name Role Phone Cecilio Aldrich MD Primary Care Provider [phone] Damon Swanson MD Unavailable [phone] Reason for Visit * Reason Comments Wound Encounter Details Date Type Department Care Team (Late st Contact Info) Description 12/21/2018 10:30 AM CDT Home Care Visit [facility] [address] [place] [address] Adele Zamora RN [phone] (Work) SN HOME VISIT Social History [...] Sign Reading Time Taken Comments Blood Pressure 124/70 12/21/2018 10:13 AM CDT Pulse 72 12/21/2018 10:13 AM CDT Temperature 36 ??C (96.8 ??F) 12/21/2018 10:13 AM CDT Respiratory Rate 18 12/21/2018 10:13 AM CDT Oxygen Saturation - - Inhaled [...] Visit Disciplines: Correction Supervision of HH Aide, VICE PRESIDENT OF ADVERTISING or NICHOLS 12/19/2018 Active 1 goal linked [...] monalisa in this visit Wound Care Disciplines: Correction Alteration in skin integrity 12/19/2018 Active 1 goal linked to scheduled/docume nted intervention 1 problem intervention scheduled/documen monalisa in this visit 3 goal interventions scheduled/documen monalisa in this visit Goals Goal Associated Problem Outcome Goal Met? Visit Notes Progress towards discharge Description: Documentation of ongoing progress towards goals through 02/14/19. Discharge Planning Met This Shift No Coordination of Care Achieved Description: Coordination [...] No patient does not have a glucometer in the home SN Management and Evaluation of the Care Plan Description: Skilled services to see patient as ordered Management and Evaluation of the Care Plan Met This Shift No SN STATEMENT PROCESSOR Supervision Description: RN to supervise Home Health [...] completed. Problem:Medications Goal:Understanding of Medication Regimen Completed Patient still does not have the Santyl in home that is to be used for wound care. Instruct medications Description: Assess effectiveness of current [...] . Problem:Home Health Aide Supervisory Visit Goal:SN STATEMENT PROCESSOR Supervision Completed Instruct diet Description: Instruct on [...] Completed documented in this encounter Care Teams Red Lead Burner Relationship Specialty Start Date End Date Cecilio Aldrich MD [address] [place] [address] PCP - General HOTEL LOBBY CONCIERGE 12/10/18 02/09/19 Damon Swanson MD [address] [place] [address] INTERNAL MEDICINE 12/10/18 documented as of this encounter
--- OUTSIDE RECORDS SUMMARY | 2024-02-26 21:26 | XMS_ITS | Encounter Summary ---
Author Organization [facility] Address [address] [place] [address]. [place] [address] [place] [address] Care Team Providers Care Manager Hi Name Role Phone Cecilio Aldrich MD Primary Care Provider [phone] Damon Swanson MD Unavailable [phone] Encounter Details Date Type Department Care Team (Late st Contact Info) Description 12/18/2018 12:30 PM CDT Home Care Visit [address] [place] [address] [place] [address] Yazmin Rodriguez HOME VISIT Social History Tobacco [...] on filedocumented in this encounter Care Teams Manager Hi Relationship Specialty Start Date End Date Cecilio Aldrich MD [address] [place] [address] PCP - General AFTER SCHOOL PROGRAM ASSISTANT 12/10/18 02/09/19 Damon Swanson MD [address] [place] [address] INTERNAL MEDICINE 12/10/18 documented as of this encounter
--- OUTSIDE RECORDS SUMMARY | 2024-02-26 21:26 | XMS_ITS | Encounter Summary ---
Author Organization [facility] Address [address] [place] [address]. [place], [place] [address] [place] [address] Care Team Providers Care Geospatial Analyst Name Role Phone Cecilio Aldrich MD Primary Care Provider [phone] Damon Swanson MD Unavailable [phone] Encounter Details Date Type Department Care Team (Latest Contact Info) Description 12/17/2018 9:30 AM CDT Home Care Visit [address] [place] [address] Liseth Barreto, RN [phone] (Work) SN OASIS START OF CARE Social History Tobacco Use Types Packs/Day Years [...] Sign Reading Time Taken Comments Blood Pressure 132/70 12/17/2018 1:22 PM CDT Pulse 76 12/17/2018 12:34 PM CDT Temperature 36.1 ??C (96.9 ??F) 12/17/2018 12:34 PM C DT Respiratory Rate 16 12/17/2018 12:34 PM CDT Oxygen Saturation 97% 12/17/2018 12:34 PM CDT Inhaled Oxygen Concentration - - Weight - - Height - - Body Mass Index - - documented in this encounter Plan of Treatment Not on file documented as of this encounter Visit Diagnoses Not on filedocumented in this encounter Home Health Visit - Care Plan Visit Details Visit Type -SN - OASIS Start of Care Discipline -Fdc Problems Problem Description Start Date Status Goals Interve ntions Discharge Planning Disciplines: Fdc Discharge Planning 12/19/2018 Active 1 goal linked to scheduled/docume nted intervention 1 goal intervention scheduled/documen monalisa in this visit Care Coordination Disciplines: Fdc Management and coordination of patient care 12/19/2018 Active 1 goal linked to scheduled/docume nted intervention 2 goal interventions scheduled/documen monalisa in this visit Homebound Status Disciplines: Fdc Patient meets requirements of homebound status as evidenced by 02/1412/19/2018 Active 1 goal linked to scheduled/docume nted intervention 1 problem intervention scheduled/documen monalisa in this visit A Plan for Next Visit Disciplines: Fdc Plan for next visit 12/19/2018 Active 1 goal linked to scheduled/docume nted intervention 1 goal intervention scheduled/documen monalisa in this visit Home Safety Disciplines: Fdc Management and evaluation of patient's home environment 12/19/2018 Active 1 goal linked to scheduled/docume nted intervention 3 goal interventions scheduled/documen monalisa in this visit Medications Disciplines: Fdc Management of home medications 12/19/2018 Active 1 goal linked to scheduled/docume nted intervention 3 goal interventions scheduled/documen monalisa in this visit Blood Glucose Monitoring Disciplines: Fdc Skilled assessment and evaluation of blood glucose monitoring 12/19/2018 Active 1 goal linked to scheduled/docume nted intervention 2 goal interventions scheduled/documen monalisa in this visit Management and Evaluation of the Care Plan Disciplines: Fdc SN for management and evaluation of skilled services 12/19/2018 Active 1 goal linked to scheduled/docume nted intervention 3 goal interventions scheduled/documen monalisa in this visit Home Health Aide Supervisory Visit Disciplines: Fdc Supervision of HH Aide, FOOD SAFETY AUDITOR or NICHOLS 12/19/2018 Active 1 goal linked to scheduled/docume nted intervention Nutritional concerns Disciplines: Fdc Inadequate/imbala nced nutritional concerns 12/19/2018 Active 1 goal linked to scheduled/docume nted intervention 1 goal intervention scheduled/documen monalisa in this visit Pulse Oximetry Disciplines: Fdc Skilled assessment and monitoring of O2 saturations. 12/19/2018 Active 1 goal linked to scheduled/docume nted intervention 1 goal intervention scheduled/documen monalisa in this visit Wound Care Disciplines: Fdc Alteration in skin integrity 12/19/2018 Active 1 [...] of care will be achieved Care Coordination Progressing No Patient meets homebound requirements Description: Patient [...] a considerable and taxing effort. Homebound Status Progressing No Provide Continuity of Care Description: To provide continuity of care A Plan for Next Visit Progressing No Remain Safe in Home Description: Patient will remain safe in their home as evidenced by no falls or injuries, through 02/14/19. Home Safety Progressing No Understanding of Medication Regimen Description: patient and caregiver will verbalize understanding of medications and proper administration of medication regimen by 02/14/19. Medications Progressing No SN Blood Glucose Monitoring Description: Patient to have blood sugars within normal limits Blood Glucose Monitoring Progressing No SN Management and Evaluation of the Care Plan Description: Skilled services to see patient as ordered Management and Evaluation of the Care Plan Progressing No SN AUTOMOTIVE ACCESSORY INSTALLER Supervision Description: RN to supervise Home Health Aide at least every 14 days through 02/14/19. Home Health Aide Supervisory Visit Progressing No Nutritional Status for Optimal Health Description: Patient will demonstrate adequate nutritional status as evidenced by stabilization of weight and intake of required nutrients for optimal health and functioning by 02/14/19. Nutritional concerns Progressing No SN Pulse Oximetry Description: Pulse oximetry to be monitored as needed through episode of care for shortness of breath or dyspnea. Pulse Oximetry Progressing No Identify Signs/Symptoms of Infection Description: patient and caregiver will demonstrate the ability to identify the signs/symptoms of infection by 02/14/19. Wound Care Progressing No Interventions Intervention Associated Problem/Goal Status [...] of Care Achieved Completed Care plan updates: Developed at this visit and collaborated with patient and patient c s s representative Care Coordination Description: Coordinate care with Dr [...] Glucose Monitoring Goal:SN Blood Glucose Monitoring Completed OT Referral Description: Initiate OT Referral for teaching for ADL and IADL Problem:Management and Evaluation of the Care Plan Goal:SN Management and Evaluation of the Care Plan Completed PT Referral Description: Initiate PT Referral for Strenght and balance Problem:Management and Evaluation of the Care Plan Goal:SN Management and Evaluation of the Care Plan Completed Management and evaluation of care plan Description: SN to visit for management and evaluation of unskilled and skilled care providers. Evaluate and manage it to prevent medical complications. Notify physician of the need for modifications. Problem:Management and Evaluation of the Care Plan Goal:SN Management and Evaluation of the Care Plan Completed Instruct diet Description: Instruct on Diabetic [...] Completed documented in this encounter Care Teams Geospatial Analyst Relationship Specialty Start Date End Date Cecilio Aldrich MD [address] [place] [address] PCP - General BARBER OR BEAUTY SHOP MANAGER 12/10/18 02/09/19 Damon Swanson MD [address] [place] [address] INTERNAL MEDICINE 12/10/18 documented as of this encounter
--- OUTSIDE RECORDS SUMMARY | 2024-02-26 21:26 | XMS_ITS | Encounter Summary ---
Author Organization [facility] Address [address] [place] [address]. [place] [address] [place] [address] Care Team Providers Care Political Science Faculty Member Name Role Phone Cecilio Aldrich MD Primary Care Provider Damon Swanson MD Unavailable [phone] Encounter Details Date Type Department Care Team (Latest Contact Info) Description 01/09/2019 9:30 AM CDT Home Care Visit [facility] [address] [place] [address] [place] [address] Leydi Harmon, PT [address] [place] [address] PT DISCIPLINE DISCHARGE Social History Tobacco Use Types Packs/Day Years [...] Time Taken Comments Blood Pressure 132/80 01/09/2019 9:34 AM CDT Pulse 78 01/09/2019 9:34 AM CDT Temperature 35.9 ??C (96.7 ??F) 01/09/2019 9:34 AM CD T Respiratory Rate 18 01/09/2019 9:34 AM CDT Oxygen Saturation - - Inhaled Oxygen Concentration - - Weight - - Height - - Body Mass Index - - documented in this encounter Plan of Treatment Not on file documented as of this encounter Visit Diagnoses Not on filedocumented in this encounter Home Health Visit - Care Plan Visit Details Visit Type -PT - Discipline Discharge Discipline -Physical Therapy Problems Problem Description Start Date Status Goals Interventions Care Coordination Disciplines: Physical Therapy Management and coordination of patient care 12/19/2018 Resolved on 01/09/2019 1 goal linked to scheduled/docume nted intervention 1 goal intervention scheduled/documen monalisa in this visit Homebound Status Disciplines: Physical Therapy Patient meets requirements of homebound status as evidenced by fatigues easily, gait limited to household distances, requires elevation of lower extremities for wound healing, unable to leave home safely without assistance, wound complications. 12/19/2018 Resolved on 01/09/2019 1 goal linked to scheduled/docume nted intervention A Plan for Next Visit Disciplines: Physical Therapy Plan for next visit 12/19/2018 Resolved on 01/09/2019 1 goal linked to scheduled/docume nted intervention 1 goal intervention scheduled/documen monalisa in this visit Therapies Medications Disciplines: Physical Therapy Management of home medications 12/19/2018 Resolved on 01/09/2019 1 goal linked to scheduled/docume nted intervention 1 goal intervention scheduled/documen monalisa in this visit Home Safety Disciplines: Physical Therapy Management and evaluation of patient's home environment 12/19/2018 Resolved on 01/09/2019 1 goal linked to scheduled/docume nted intervention 1 goal intervention scheduled/documen monalisa in this visit Therapies Vitals Disciplines: Physical Therapy Obtain VS 12/19/2018 Resolved on 01/09/2019 1 goal linked to scheduled/docume nted intervention 1 goal intervention scheduled/documen monalisa in this visit PT Gait Training Disciplines: Physical Therapy Gait evaluation and training in appropriate use of assistive devices 12/19/2018 Resolved on 01/09/2019 1 goal linked to scheduled/docume nted intervention 1 goal intervention scheduled/documen monalisa in this visit Therapies Transfer Training Disciplines: Physical Therapy Transfer Training 12/19/2018 Resolved on 01/09/2019 1 goal linked to scheduled/docume nted intervention 1 goal intervention scheduled/documen monalisa in this visit PT Therapeutic Exercise Disciplines: Physical Therapy Therapeutic exercise 12/19/2018 Resolved on 01/09/2019 1 goal linked to scheduled/docume nted intervention 2 goal interventions scheduled/documen monalisa in this visit Goals Goal Associated Problem Outcome Goal Met? Visit Notes Coordination of Care/Interpretive Services Description: Coordination of care will be achieved through 01/11/2019 for all disciplines. Care Coordination Completed Yes PT - Homebound Status Description: Patient meets requirements of homebound status as evidenced by fatigues easily, gait limited to household distances, requires elevation of lower extremities for wound healing, unable to leave home safely without assistance, wound complications. Homebound Status Completed Yes Provide Continuity of Care Description: To provide continuity of care A Plan for Next Visit Completed Yes Therapies - Understanding of Medications - Physical Therapy Description: Patient will verbalize understanding of medication regimen by 01/11/2019. Therapies Medications Completed Yes Remain Safe in Home Description: STG - Patient to state 3 fall prevention/home safety techniques to reduce risk of falls by 12/28/2018 Home Safety Adequate for Discharge Yes Physical Therapy - Vital Signs Description: Vitals to be monitored as needed including pulse oximetry and changes or concerns reported to supervising therapist, case resolution specialist, and/or provider. Therapies Vitals Completed Yes PT Gait Training Description: LTG- Patient to ambulate independently indoors with device as needed for 100 feet to assist with MD appointments by 01/11/2019 PT Gait Training Adequate for Discharge Yes Physical Therapy - Transfer Training Description: LTG - Patient to perform bed/furniture transfers independently by 01/11/1029 Therapies Transfer Training Adequate for Discharge Yes PT Therapeutic Exercise Description: LTG - Patient to demonstrate independence with home exercise program to promote increased lower extremity muscle strength to 4/5 to assist with transfers and ambulation by 01/11/2019 PT Therapeutic Exercise Adequate for Discharge Yes Interventions Intervention Associated Problem/Goal Status Variance Visit Notes Care Coordination Description: Clinician to review care plan with patient/cargiver(s). Patient/caregiver agrees to plan of care and agrees to participate in care. Problem:Care Coordination Goal:Coordination of Care/Interpretive Services Completed Patient discharged from home health physical therapy this visit with patient progressing toward goals. Patient being admitted to nursing facility for care. Plan for Next Visit Description: Next visit plan summation Problem:A Plan for Next Visit Goal:Provide Continuity of Care Completed Patient discharged from home health physical therapy this visit with patient progressing toward goals. Patient being admitted to nursing facility for care. Review Medications Description: Clinician to review medications with patient/caregiver each visit and report any changes to case resolution specialist and/or supervising PT Problem:Therapies Medications Goal:Therapies - Understanding of Medications - Physical Therapy Completed Patient denies medication changes since last visit Instruct Home Safety Description: Instruct patient on strategies/modificatio ns to home environment. Problem:Home Safety Goal:Remain Safe in Home Completed Patient verbalizing understanding of home safety/fall prevention techniques including maintaining clear pathways, adequate lighting, no throw rugs, proper footwear, and use of wheeled walker at all times. Therapies - Vitals Description: PT , case resolution specialist, and/or physician to be contacted if pulse [...] training with wheeled walker on level surfaces with stand by assist working on heel strike, push off, step length, foot clearance 100 feet x 2. Therapies - Transfer Training Description: Evaluate and instruct patient in safe transfers using appropriate body mechanics and necessary equipment to perform safe transfers. Problem:Therapies Transfer Training Goal:Physical Therapy - Transfer Training Completed Patient instructed on proper technique for sit <> stand transfers with contact guard assist. Patient requires increased time for sit to stand transfers with more than 1 attempt to perform. Patient requires cues to reach back for chair and control descent during stand to sit transfers. Therapies Balance Description: Assess balance and perform balance activities to decrease risk of falls Problem:PT Therapeutic Exercise Goal:PT Therapeutic Exercise Completed Patient demonstrates fair + standing balance with wheeled walker during ambulation Therapies - Therapeutic Exercise Description: HEP for lower extremity strengthening to assist with transfers and ambulation. Problem:PT Therapeutic Exercise Goal:PT Therapeutic Exercise Completed Patient was instructed on and performed lower extremity strengthening exercises in sitting and standing with cues for range of motion, pace, alignment, and end of range holds. Patient performs 15-20 reps seated ankle dorsiflexion and plantarflexion, knee extension, hip flexion, and hip abduction and adduction. Patient performs 15 reps standing marches and minisquats. documented in this encounter Care Teams Political Science Faculty Member Relationship Specialty Start Date End Date Cecilio Aldrich MD [address] [place] [address] PCP - General WADER BOOT TOP ASSEMBLER 12/10/18 02/09/19 Damon Swanson MD [address] [place] [address] INTERNAL MEDICINE 12/10/18 documented as of this encounter
--- OUTSIDE RECORDS SUMMARY | 2024-02-26 21:26 | XMS_ITS | Encounter Summary ---
Author Organization [facility] Address [address] [place] [address]. [place] [address] [place] [address] Care Team Providers Care Chemical Laboratory Assistant Name Role Phone Cecilio Aldrich MD Primary Care Provider [phone] Damon Swanson MD Unavailable [phone] Encounter Details Date Type Department Care Team (Late st Contact Info) Description 12/31/2018 9:30 AM CDT Home Care Visit [address] [place] [address] Cris Lim, RESERVATIONS MANAGER PT HOME VISIT Social History Tobacco Use [...] Time Taken Comments Blood Pressure 120/68 12/31/2018 9:31 AM CDT Pulse 82 12/31/2018 9:31 AM CDT Temperature 37 ??C (98.6 ??F) 12/31/2018 9:31 AM CDT Respiratory Rate 18 12/31/2018 9:31 AM CDT Oxygen Saturation - - Inhaled [...] changes or concerns reported to supervising therapist, pillowcase sewer, and/or provider. Therapies Vitals Met This Shift [...] Problem:Care Coordination Goal:Coordination of Care/Interpretive Services Completed Sent PT message regarding pt's progress Plan for Next Visit Description: Next visit plan summation Problem:A Plan for Next Visit Goal:Provide Continuity of Care Completed Re assessment by PT Review Medications Description: Clinician to review medications with patient/caregiver each visit and report any changes to pillowcase sewer and/or supervising PT Problem:Therapies Medications Goal:Therapies - Understanding of Medications - Physical Therapy Completed No new meds Instruct Home Safety Description: Instruct patient on strategies/modificatio ns to home environment. Problem:Home Safety Goal:Remain Safe in Home Completed Pt instructed in safety in throw rugs Therapies - Vitals Description: PT , pillowcase sewer, and/or physician to be contacted if pulse [...] Training Completed Pt recieved gait training for 70' x 1 with ww and cga with cues for walker placement, step height and safety awareness. Pt required several standing rest breaks and requested not to participate in 2nd gait training session Therapies - Transfer Training Description: Evaluate and instruct patient in safe transfers using appropriate body mechanics and necessary equipment to perform safe transfers. Problem:Therapies Transfer Training Goal:Physical Therapy - Transfer Training Completed sit to stand x 5 with cga and instruction on scooting forward, leaning through the hips and push up from arm of couch to decrease effort, decrease assist and increase independence. This was the first rx by this therapist that the patient did not require any manual assistance to stand. Pt showing progress this date Therapies Balance Description: Assess balance and perform balance activities to decrease risk of falls Problem:PT Therapeutic Exercise Goal:PT Therapeutic Exercise Completed Pt performed static stand balance unsupported x 5 with cga with eyes open and eyes closed with cues on head position and upright posture. Therapies - Therapeutic Exercise Description: HEP for lower extremity strengthening to assist with transfers and ambulation. Problem:PT Therapeutic Exercise Goal:PT Therapeutic Exercise Completed Pt performed sitting exs x 20 reps for ankle df/pf, knee ext/flex, hip flexion and hip ab. Pt did not require tactile cues this date to move through full rom and pt's r knee ext improved considerably. Pt did stilll require verbal cues to maximize arom and move through the entire rom. Improved exercise performance this date. Progressed to standing exs with walker for marching and heel raises x 10. Pt required cues to increase rom and patient had difficulty with heel raises. documented in this encounter Care Teams Chemical Laboratory Assistant Relationship Specialty Start Date End Date Cecilio Aldrich MD [address] [place] [address] PCP - General COUNSELING PSYCHOLOGIST 12/10/18 02/09/19 Damon Swanson MD [address] [place], [place] [id number] INTERNAL MEDICINE 12/10/18 documented as of this encounter
--- OUTSIDE RECORDS SUMMARY | 2024-02-26 21:26 | XMS_ITS | Encounter Summary ---
Author Organization [facility] Address [address] [place] [address]. [place] [address] [place] [address] Care Team Providers Care Recreational Vehicle Resort Manager Name Role Phone Cecilio Aldrich MD Primary Care Provider [phone] Damon Swanson MD Unavailable [phone] Encounter Details Date Type Department Care Team (Late st Contact Info) Description 12/28/2018 9:30 AM CDT Home Care Visit [address] [place] [address] [place] [address] Deneen Wilkes, ON[address] [place] [address] CASE COMMUNICATION Social History Tobacco Use Types [...] on filedocumented in this encounter Care Teams Recreational Vehicle Resort Manager Relationship Specialty Start Date End Date Cecilio Aldrich MD [address] [place] [address] PCP - General PASSENGER ELEVATOR OPERATOR 12/10/18 02/09/19 Damon Swanson MD [address] [place] [address] INTERNAL MEDICINE 12/10/18 documented as of this encounter
--- OUTSIDE RECORDS SUMMARY | 2024-02-26 21:26 | XMS_ITS | Encounter Summary ---
Author Organization [facility] Address [address] [place] [address]. [place], [place] [address] [place] [address] Care Team Providers Care Tablet Making Machine Operator Helper Name Role Phone Cecilio Aldrich MD Primary Care Provider [phone] Damon Swanson MD Unavailable [phone] Reason for Visit * Reason Comments Wound Encounter Details Date Type Department Care Team (Late st Contact Info) Description 12/28/2018 8:00 AM CDT Home Care Visit [facility] [address] [place] [address] Adele Zamora RN [phone] (Work) SN HOME VISIT Social History [...] Sign Reading Time Taken Comments Blood Pressure 140/70 12/28/2018 8:55 AM CDT Pulse 80 12/28/2018 8:55 AM CDT Temperature 36.1 ??C (97 ??F) 12/28/2018 8:55 AM CDT Respiratory Rate 18 12/28/2018 8:55 AM CDT Oxygen Saturation 98% 12/28/2018 8:55 AM CDT Inhaled Oxygen Concentration - - Weight - - Height - - Body Mass Index - - documented in this encounter Plan of Treatment Not on file documented as of this encounter Visit Diagnoses Not on filedocumented in this encounter Home Health Visit - Care Plan Visit Details Visit Type -SN - Home Visit Discipline -Care Home Problems Problem Description Start [...] Disciplines: Care Home Supervision of HH Aide, CAR DROPPER or NICHOLS 12/19/2018 Active 1 goal linked [...] this visit Wound Care Disciplines: Care Home Alteration in skin integrity 12/19/2018 Active 1 [...] achieved Care Coordination Met This Shift No Instructed patient and family that patient was accepted at [facility] and rehab Patient meets homebound requirements Description: Patient meets [...] for Next Visit Met This Shift No Instructed patient and family the plan is to have Archanaa in the senior care Remain Safe in Home Description: Patient will [...] limits Blood Glucose Monitoring Not Progressing No Patient does not have a glucometer and the family has not gotten one for her. Patient unable to check blood sugars SN Management and Evaluation of the Care Plan Description: Skilled services to see patient as ordered Management and Evaluation of the Care Plan Met This Shift No SN LINE DIRECTOR Supervision Description: RN to supervise Home Health [...] at this visit and collaborated with patient Care Coordination Description: Coordinate care with Dr [...] . Problem:Home Health Aide Supervisory Visit Goal:SN LINE DIRECTOR Supervision Completed Instruct diet Description: Instruct on [...] Completed documented in this encounter Care Teams Tablet Making Machine Operator Helper Relationship Specialty Start Date End Date Cecilio Aldrich MD [address] [place] [address] PCP - General SYSTEMS TESTER 12/10/18 02/09/19 Damon Swanson MD [address] [place] [address] INTERNAL MEDICINE 12/10/18 documented as of this encounter
--- OUTSIDE RECORDS SUMMARY | 2024-02-26 21:26 | XMS_ITS | Encounter Summary ---
Author Organization [facility] Address [address] [place] [address]. [place], [place] [id number] [place] [address] Care Team Providers Care Senior Administrative Assistant Name Role Phone Cecilio Aldrich MD Primary Care Provider [phone] Damon Swanson MD Unavailable [phone] Encounter Details Date Type Department Care Team (Latest Contact Info) Description 01/04/2019 1:00 PM CDT Home Care Visit [address] [place] [address] [place] [address] Daniela Harrington, ORACLE ETL DEVELOPER ORACLE ETL DEVELOPER HH/HOSPICE TELEPHONE ENCOUNTER/VISIT Social History Tobacco Use [...] Description Start Date Status Goals Interve ntions ORACLE ETL DEVELOPER Community Resource Planning Disciplines: Medical Social Work Assist with community resources 12/26/2018 Active 1 goal linked to scheduled/documen monalisa intervention 1 goal intervention scheduled/document ed in this visit Goals Goal Associated Problem Outcome Goal Met? Visit Notes ORACLE ETL DEVELOPER Community Resource Planning Description: Patient will move to assisted living/nursing facility of choice for so that level of care needs are better met by 01/22/19. ORACLE ETL DEVELOPER Community Resource Planning No Interventions Intervention Associated Problem/Goal Status Variance Visit Notes ORACLE ETL DEVELOPER community resource planning Description: ORACLE ETL DEVELOPER to assist with community resource planning related to more supportive living arrangement. Patient reports that she lives with her granddaughter, but she does not provide any assistance other than letting patient sleep on the couch and occasionally provides some food for patient. Patient reports that she is interested in moving to an assisted living/senior care. Patient reports preference for [facility] in [place] and [facility] for assisted living and did not have a preference for nursing facility. ORACLE ETL DEVELOPER spoke with Sylvia Reynaga RN case manager who confirms that due to patient's inability to transfer independently, patient would be more appropriate for senior care care over [facility] care. ORACLE ETL DEVELOPER to contact area nursing facilities for bed availability to obtain fax number to insure patient's information if forwarded to those facilities for admission review. Problem:ORACLE ETL DEVELOPER Community Resource Planning Goal:ORACLE ETL DEVELOPER Community Resource Planning Scheduled documented in this encounter Care Teams Senior Administrative Assistant Relationship Specialty Start Date End Date Cecilio Aldrich MD [address] [place] [address] PCP - General INSTRUMENT REPAIR SUPERVISOR 12/10/18 02/09/19 Damon Swanson MD [address] [place] [address] INTERNAL MEDICINE 12/10/18 documented as of this encounter
--- OUTSIDE RECORDS SUMMARY | 2024-02-26 21:26 | XMS_ITS | Encounter Summary ---
Author Organization [facility] Address [address] [place] [address]. [place] [address] [place] [address] Care Team Providers Care Wire Rigger Name Role Phone Cecilio Aldrich MD Primary Care Provider Damon Swanson MD Unavailable [phone] Reason for Referral * Imaging (Routine) - Closed Specialty Diagnoses / Procedures Referred By Contac t Referred To Contact RADIOLOGY Diagnoses Chronic venous hypertension (idiopathic) with ulcer and inflammation of bilateral lower extremity (CODE) ([facility] HHS/HCC) Diabetic leg ulcer ([facility] HHS/HCC) Procedures MRI TIB+FIB LT WO CON Saranya Pichardo NP Referral ID Status Reason Start Date Expiration Date Visits Re quested Visits Authorized [id number] Closed 12/28/2018 01/27/2020 1 1 Encounter Details Date Type Department Care Team (Late st Contact Info) Description 12/28/2018 3:45 PM CDT Office Visit [facility] [address] [facility] [facility] [address] Babar Sullivan MD Freeman, Jessica, NP Social History Tobacco Use Types Packs/Day Years [...] on file documented as of this encounter Results * MRI TIB+FIB LT [...] most likely representing chronic peripheral neuropathy. Saranya Marino SEN MRI Final Result * XR TIBIA+FIBULA LT 2V (12/28/2018 5:17 PM CDT) Anatomical Region Laterality Modality TibFib Radiographic Sylvia ging 12/29/2018 1:28 PM CDT Impressions 12/29/2018 1:29 PM CDT =====IMPRESSION:===== Soft tissue swelling in the upper and mid calf. No definite acute bony abnormalities or malalignment. Please correlate and follow-up clinically. If there is concern for osteomyelitis further evaluation with cross-sectional studies including MRI without and with contrast can be considered. Narrative 12/29/2018 1:29 PM CDT Examination: 2 views left tibia/fibula Exam date/time: 12/28/2018 5:02 PM Reason For Exam: ??leg ulcer ? Comparison: None. Technique: AP and lateral radiographs of the left tibia/fibula were obtained Findings: There is no malalignment. No definite acute bony abnormalities. There is soft tissue swelling of moderate degree at the upper and mid calf more pronounced on the medial side. Scattered vascular calcifications along the infrapopliteal branches and the popliteal artery. Arthritic changes in the hint foot and midfoot. Hypertrophy at the contours of the patella likely chronic. Mild degenerative changes at the knee joint. Procedure Note Gary Erwin MD - 12/29/2018 Examination: 2 views left tibia/fibula Exam date/time: 12/28/2018 5:02 PM Reason For Exam: leg ulcer Comparison: None. Technique: AP and lateral radiographs of the left tibia/fibula were obtained Findings: There is no malalignment. No definite acute bonyabnormalities. There is soft tissue swelling of moderate degree at the upper and midcalf more pronounced on the medial side. Scattered vascular calcificationsalong the infrapopliteal branches and the popliteal artery. Arthritic changesin the hint foot and midfoot. Hypertrophy at the contours of the patella likely chronic. Mild degenerative changes at the knee joint. =====IMPRESSION:===== Soft tissue swelling in the upper and mid calf. No definite acute bony abnormalities or malalignment. Please correlate and follow-up clinically. If there is concern for osteomyelitis further evaluation with cross-sectional studies includingMRI without and with contrast can be considered. Saranya Pichardo NP GENERAL IMAGING Final Result documented in this encounter Visit Diagnoses Diagnosis Chronic venous hypertension (idiopathic) with ulcer and inflammation of bilateral lower extremity (CODE) (CMS/HCC HHS/HCC)- Primary Diabetic leg ulcer (CMS/HCC HHS/HCC) Type II or unspecified type diabetes mellitus with other specified manifestations, not stated as uncontrolled Chronic venous hypertension (idiopathic) with ulcer and inflammation of bilateral lower extremity (CODE) (CMS/HCC HHS/HCC) Diabetic leg ulcer (CMS/HCC HHS/HCC) Type II or unspecified type diabetes mellitus with other specified manifestations, not stated as uncontrolled Chronic venous hypertension (idiopathic) with ulcer and inflammation of bilateral lower extremity (CODE) (CMS/HCC HHS/HCC) Diabetic leg ulcer (CMS/HCC HHS/HCC) Type II or unspecified type diabetes mellitus with other specified manifestations, not stated as uncontrolled documented in this encounter Care Teams Wire Rigger Relationship Specialty Start Date End Date Cecilio Aldrich MD [address] [place] [address] PCP - General BATCH TESTER 12/10/18 02/09/19 Damon Swanson MD [address] [place] [address] INTERNAL MEDICINE 12/10/18 documented as of this encounter
--- OUTSIDE RECORDS SUMMARY | 2024-02-26 21:26 | XMS_ITS | Encounter Summary ---
Author Organization [facility] Address [address] [place] [address]. [place] [address] [place] [address] Care Team Providers Care Sausage Machine Operator Name Role Phone Cecilio Aldrich MD Primary Care Provider [phone] Damon Swanson MD Unavailable [phone] Encounter Details Date Type Department Care Team (Late st Contact Info) Description 01/03/2019 2:00 PM CDT Home Care Visit [address] [place] [address] [place] [address] Jennifer Gray, [facility] AIDE HOME VISIT Social History Tobacco Use [...] Sign Reading Time Taken Comments Blood Pressure 124/72 01/03/2019 9:45 AM CDT Pulse 76 01/03/2019 9:45 AM CDT Temperature 35.9 ??C (96.7 ??F) 01/03/2019 9:45 AM CD T Respiratory Rate 18 01/03/2019 9:45 AM CDT Oxygen Saturation - - Inhaled [...] Notes Hygiene Needs Met with Assist of ACTIVITIES CONCIERGE Description: Hygiene and safety needs will be met with assist of ACTIVITIES CONCIERGE by 02/14/19. Client will progress towards increased independence in performance of self cares. Aide for personal cares/mobility/ADL's Met This Shift No Interventions Intervention Associated Problem/Goal Status Variance Visit Notes Aide assist with shampoo Description: Assist with shampooing hair Problem:Aide for personal cares/mobility/ADL' s Goal:Hygiene Needs Met with Assist of ACTIVITIES CONCIERGE Completed with variance Patient refused Aide Communication tool Description: Complete ACTIVITIES CONCIERGE communication Problem:Aide for personal cares/mobility/ADL' s Goal:Hygiene Needs Met with Assist of ACTIVITIES CONCIERGE Completed Last BM Date: 01/03/19 Shampoo: No Bathing: Complete, Partial Nail Care: Yes Clothing change: Yes Bruised, open or red areas: None noted Nurse notified or aware: No Aide cleanse perineal Description: Cleanse perineal area Problem:Aide for personal cares/mobility/ADL' s Goal:Hygiene Needs Met with Assist of ACTIVITIES CONCIERGE Completed Aide personal care Description: Personal Care: shampoo hair, brush teeth, skin care and apply cream/lotion Problem:Aide for personal cares/mobility/ADL' s Goal:Hygiene Needs Met with Assist of ACTIVITIES CONCIERGE Completed Aide inspect skin Description: Inspect skin for signs of pressure or irritation. After bathing reapply moisturizer and moisture barrier. Report any observed or patient reported concerns to RN. Problem:Aide for personal cares/mobility/ADL' s Goal:Hygiene Needs Met with Assist of ACTIVITIES CONCIERGE Completed Aide tub/shower bath Description: Assistance with bathing using tub, hand-held shower and bath bench. Clean shower after bathing. Problem:Aide for personal cares/mobility/ADL' s Goal:Hygiene Needs Met with Assist of ACTIVITIES CONCIERGE Completed documented in this encounter Care Teams Sausage Machine Operator Relationship Specialty Start Date End Date Cecilio Aldrich MD [address] [place], [place] [id number] PCP - General TAXIMETER REPAIRER 12/10/18 02/09/19 Damon Swanson MD [address] [place], [place] [id number] INTERNAL MEDICINE 12/10/18 documented as of this encounter
--- OUTSIDE RECORDS SUMMARY | 2024-02-26 21:26 | XMS_ITS | Encounter Summary ---
Author Organization [facility] Address [address] [place] [address]. [place] [address] [place] [address] Care Team Providers Care Boss Dyer Name Role Phone Cecilio Aldrich MD Primary Care Provider [phone] Damon Swanson MD Unavailable [phone] Reason for Referral * Imaging (Routine) - Closed Specialty Diagnoses / Procedures Referred By Contac t Referred To Contact RADIOLOGY Diagnoses Chronic venous hypertension (idiopathic) with ulcer and inflammation of bilateral lower extremity (CODE) ([facility]/HCC) Procedures USV VENOUS REFLUX LOW BRENDON Babar Sullivan MD Referral ID Status Reason Start Date Expiration Date Visits Re quested Visits Authorized [id number] Closed 12/20/2018 01/20/2020 1 1 * Imaging (Routine) - Closed Specialty Diagnoses / Procedures Referred By Contac t Referred To Contact RADIOLOGY Diagnoses Peripheral arterial disease ([facility]) Procedures USV ART REST W ZAYNAB LOW EXT Babar Sullivan MD Referral ID Status Reason Start Date Expiration Date Visits Re quested Visits Authorized [id number] Closed 12/20/2018 01/20/2020 1 1 Encounter Details Date Type Department Care Team (Late st Contact Info) Description 12/20/2018 2:15 PM CDT Office Visit [facility] [address] [place] [address] Babar Sullivan MD Social History Tobacco Use [...] POCT GLUCOSE - CHONG DOCKED DEVICE Routine 12/20/2018 2:41 PM CDT documented in this encounter Results * USV VENOUS REFLUX LOW BRENDON (01/08/2019 11:44 AM CDT) Anatomical Region Laterality Modality Extremity Vascular Ultraso und 01/08/2019 10:4 0 AM CDT Narrative 02/06/2024 11:51 AM EQUIPMENT VALIDATION SPECIALIST ?VENOUS DUPLEX IMAGING ?BILATERAL LOWER EXTREMITY ? VASCULAR LAB Pat.Name: ??ERICK GIL ? Pat.ID: ?[id number] ? St.Date: ?? 01/08/2019 ?Refer.MD: ??Cecilio Aldrich ? Exam Time: 10:40:00 AM ? Study Type:FRANCISCO VS Venous Duplex Legs BRENDON ??Age: ??1955,63Y ? Sex: ? FEMALE ? Sonogrphr: Valeriy Tammy, RVS ?Pat. Stat.:Outpatient ? History / Clinical: chronic venous hypertension, BLE ulcers; PMH- breast CA, DM, HTN, No Prior Procedures: ??Rodriguez scale, Color Doppler imaging, Doppler Spectral Analysis Race: ?B ? ++++++++++++++++++++++++++++++++++++ SUMMARY: ++++++++++++++++++++++++++++++++++++ The deep veins are patent bilaterally from groin to calf. ?? No reflux > 1 second duration is seen in the deep or superficial veins. ??Reflux measurements obtained with patient standing, tilt table. CONCLUSION: ?? WOUND CLINIC RECOMMENDATION: ? ++++++++++++++++++++++++++++++++++++ MEASUREMENTS: ++++++++++++++++++++++++++++++++++++ ?REFLUX Right CFV ?? CFV ?0 sec ? Right Mid FV ?? Mid FV ? 0 sec ? Right Pop V ?? Pop V ?0 sec ? Right SFJ ?? GSV SFJ ?7 mm ?GSV SFJ ?0 sec Prox Thigh ?? GSV Prox Thigh ? 3 mm ?GSV Prox Thigh ?? 3.6 mm ?? Right Prox Thigh ?? GSV Prox Thigh ? 0 sec ? Right Dist Thigh/AK ?? GSV Dist Thigh/ ? 2 mm ? GSV Dist Thigh/ ? 0 sec Right Mid ?? SSV Mid ?2.5 mm ?SSV Mid ?0 sec Right Prox Calf ?? GSV Prox Calf ?1.9 mm ?GSV Prox Calf ?0 sec Left CFV ?? CFV ?0 sec ? Left Mid FV ?? Mid FV ? 0 sec ? Left Pop V ?? Pop V ?0 sec ? Left SFJ ?? GSV SFJ ? 12.2 mm ?GSV SFJ ?0 sec Left Prox Thigh ?? GSV Prox Thigh ? 0 sec ? Left Dist Thigh/AK ?? GSV Dist Thigh/ ?? 1.7 mm ? GSV Dist Thigh/ ? 0 sec Left Prox Calf ?? GSV Prox Calf ?3 mm ?GSV Prox Calf ?0 sec Left Mid ?? SSV Mid ?1.7 mm ?SSV Mid ?0 sec ?DOPPLER Right Diameter ?? 0.3 cm ?Left VENDOR AND ? 0 ? Left Diameter ?? 1.22 cm ? SFJ ?? Right SFJ Diame ?? 0.7 cm ? Unsigned Khalif Dang M.D. us Babar Sullivan MD VASC Final Result * USV ART REST W ZAYNAB LOW EXT (01/08/2019 11:44 AM CDT) Anatomical Region Laterality Modality Extremity Vascular Ultraso und 01/08/2019 11:0 8 AM CDT Narrative 01/15/2019 10:32 PM EQUIPMENT VALIDATION SPECIALIST ?ARTERIAL DOPPLER - ZAYNAB ?BILATERAL LOWER EXTREMITY ? VASCULAR LAB Pat.Name: ??ERICK GIL ? Pat.ID: ?[id number] ? St.Date: ?? 01/08/2019 ?Refer.MD: ??Cecilio Aldrich ? Exam Time: 11:08:00 AM ? Study Type:FRANCISCO VS Arterial Doppler Legs BRENDON ??Age: ??1955,63Y ? Sex: ? FEMALE ? Sonogrphr: Valeriy Munoz, RVS ?Pat. Stat.:Outpatient ? History / Clinical: PAD; PMH- breast CA, DM, HTN, No Prior Procedures: ??Doppler waveforms, Digit PPG, Systolic Pressures w/ZAYNAB Race: ?B ? ++++++++++++++++++++++++++++++++++++ SUMMARY: ++++++++++++++++++++++++++++++++++++ Rom ZAYNAB Criteria: ? >1.30 = falsely elevated, calcified vessels; ?1.00-1.29 = no signif ischemia at rest ; ?.80-.99 = mild PAD, asymptomatic; ? .50-.79 = moderate PAD, claudication; ?<.50 = severe PAD, rest pain; ?<.30 = critical PAD, necrosis, poor healing ?(Digits: ??DBI >.60 Normal; ?? <.60 Abnormal) ? (Positive Stress eval: ??ZAYNAB decrease of >.20 or >20% pressure drop) Right leg: ??Common Femoral waveform is triphasic, high amplitude; Popliteal mono-biphasic, low amplitude; ??Posterior Tibial monophasic, low amplitude with ZAYNAB 0.725 ; ??DP/Anterior Tibial monophasic, low amplitude with ZAYNAB 0.571 . ??Digit flow by PPG is low amplitude with DBI 0.495 . Left leg: ??Common Femoral waveform is biphasic, high amplitude; Popliteal mono-biphasic, medium amplitude; ??Posterior Tibial biphasic, high amplitude with ZAYNAB not measurable due to calcification; DP/Anterior Tibial mono-biphasic, medium amplitude with ZAYNAB 0.769 . Digit flow by PPG is low amplitude with DBI 0.527 . ZAYNAB at the left posterior tibial, and possibly right posterior tibial and left anterior tibial artery is artificially elevated at >1.3 and unable to be accurately measured due to vessel calcification. Patient refused BP in left arm due to PCP recommendation. CONCLUSION: ZAYNAB right leg 0.72, with toe index 0.495 , in the range of moderate ischemia, claudication. ??Waveforms suggestive of infrageniculate disease, small vessel disease. ZAYNAB left leg 0.76, with toe index 0.527 , in the range of moderate ischemia, claudication. ??Waveforms suggestive of infrageniculate disease, small vessel disease. Recommend follow up in 1 year. ?? WOUND CLINIC RECOMMENDATION: ??No referral to vascular surgery unless clinically indicated. ?? ++++++++++++++++++++++++++++++++++++ FINDINGS: ++++++++++++++++++++++++++++++++++++ ++++++++++++++++++++++++++++++++++++ MEASUREMENTS: ++++++++++++++++++++++++++++++++++++ ?DOPPLER Anterior Tibial ?? Right Anterior ?? 16.7 cm/s ? PULL OVER MACHINE OPERATOR ?? Right PULL OVER MACHINE OPERATOR Right ?? 111 cm/s ? Left PULL OVER MACHINE OPERATOR Left V ? 0 ? Left PULL OVER MACHINE OPERATOR Left P ?? 116 cm/s ? Peroneal ?? Right Peroneal ?? 82.3 cm/s ? Popliteal ?? Right Popliteal ??39.4 cm/s ? Left Popliteal ?? 52.6 cm/s Posterior Tibial ?? Right Posterior ??15.8 cm/s ? Left Posterior ?? 63.6 cm/s ?PRESSURES Right Brachial ?? Brach P ?182 mmHg ? Right Ankle DP ?? AnkleDP P ?104 mmHg ? Right Ankle PT ?? AnklePT P ?132 mmHg ? Right Great Toe ?? GreatToe P ?90 mmHg ? Right AZYNAB PT ?? ZAYNAB PT ? 0.725 ? Right ZAYNAB DP ?? ZAYNAB DP ? 0.571 ? Right TBI ?? TBI ?0.495 ? Left Ankle DP ?? AnkleDP P ?140 mmHg ? Left Ankle PT ?? AnklePT P ?0 mmHg ? Left Great Toe ?? GreatToe P ?96 mmHg ? Left ZAYNAB PT ?? ZAYNAB PT ? 0 ? Left ZAYNAB DP ?? ZAYNAB DP ? 0.769 ? Left TBI ?? TBI ?0.527 ? Signed 01/15/2019 10:32 PM Khalif Dang M.D. Procedure Note Khalif Dang MD - 01/15/2019 ARTERIAL DOPPLER - ZAYNAB BILATERAL LOWER EXTREMITY VASCULAR LAB Pat.Name: ERICK GIL Pat.ID: [id number] .Date: 01/08/2019 Refer.MD: Cecilio Aldrich Exam Time: 11:08:00 AM Study Type:FRANCISCO VS Arterial Doppler Legs BRENDON Age: 11 1955,63Y Sex: FEMALE Sonogrphr: THAI Benjamin Pat. Stat.:Outpatient History / Clinical: PAD; PMH- breast CA, DM, HTN, No Prior Procedures: Doppler waveforms, Digit PPG, Systolic Pressures w/ZAYNAB Race: B ++++++++++++++++++++++++++++++++++++ SUMMARY: ++++++++++++++++++++++++++++++++++++ Rom ZAYNAB Criteria: >1.30 = falsely elevated, calcified vessels; 1.00-1.29 = no signif ischemia at rest ; .80-.99 = mild PAD, asymptomatic; .50-.79 = moderate PAD, claudication; <.50 = severe PAD, rest pain; <.30 = critical PAD, necrosis, poor healing (Digits: DBI >.60 Normal; <.60 Abnormal) (Positive Stress eval: ZAYNAB decrease of >.20 or >20% pressure drop) Right leg: Common Femoral waveform is triphasic, high amplitude; Popliteal mono-biphasic, low amplitude; Posterior Tibial monophasic, low amplitude with ZAYNAB 0.725 ; DP/Anterior Tibial monophasic, low amplitude with ZAYNAB 0.571 . Digit flow by PPG is low amplitude with DBI 0.495 . Left leg: Common Femoral waveform is biphasic, high amplitude; Popliteal mono-biphasic, medium amplitude; Posterior Tibial biphasic, high amplitude with ZAYNAB not measurable due to calcification; DP/Anterior Tibial mono-biphasic, medium amplitude with ZAYNAB 0.769 . Digit flow by PPG is low amplitude with DBI 0.527 . ZAYNAB at the left posterior tibial, and possibly right posterior tibial and left anterior tibial artery is artificially elevated at >1.3 and unable to be accurately measured due to vessel calcification. Patient refused BP in left arm due to PCP recommendation. CONCLUSION: ZAYNAB right leg 0.72, with toe index 0.495 , in the range of moderate ischemia, claudication. Waveforms suggestive of infrageniculate disease, small vessel disease. ZAYNAB left leg 0.76, with toe index 0.527 , in the range of moderate ischemia, claudication. Waveforms suggestive of infrageniculate disease, small vessel disease. Recommend follow up in 1 year. WOUND CLINIC RECOMMENDATION: No referral to vascular surgery unless clinically indicated. ++++++++++++++++++++++++++++++++++++ FINDINGS: ++++++++++++++++++++++++++++++++++++ ++++++++++++++++++++++++++++++++++++ MEASUREMENTS: ++++++++++++++++++++++++++++++++++++ DOPPLER Anterior Tibial Right Anterior 16.7 cm/s PULL OVER MACHINE OPERATOR Right PULL OVER MACHINE OPERATOR Right 111 cm/s Left PULL OVER MACHINE OPERATOR Left V 0 Left PULL OVER MACHINE OPERATOR Left P 116 cm/s Peroneal Right Peroneal 82.3 cm/s Popliteal Right Popliteal 39.4 cm/s Left Popliteal 52.6 cm/s Posterior Tibial Right Posterior 15.8 cm/s Left Posterior 63.6 cm/s PRESSURES Right Brachial Brach P 182 mmHg Right Ankle DP AnkleDP P 104 mmHg Right Ankle PT AnklePT P 132 mmHg Right Great Toe GreatToe P 90 mmHg Right ZAYNAB PT ZAYNAB PT 0.725 Right ZAYNAB DP ZAYNAB DP 0.571 Right TBI TBI 0.495 Left Ankle DP AnkleDP P 140 mmHg Left Ankle PT AnklePT P 0 mmHg Left Great Toe GreatToe P 96 mmHg Left ZAYNAB PT ZAYNAB PT 0 Left ZAYNAB DP ZAYNAB DP 0.769 Left TBI TBI 0.527 Signed 01/15/2019 10:32 PM Khalif Dang, M.D. us Babar Sullivan MD [facility] Final Result * CULTURE ANAEROBIC (12/20/2018 3:21 PM CDT) SPEC DESCRIPTION LEG,LEFT 12/20/2018 5:04 PM CDT [facility] SPECIAL REQUESTS NO SPECIAL REQUEST 12/20/2018 5:04 PM CDT [facility] GRAM STAIN RESULT NO WHITE BLOOD CELLS SEEN 12/21/2018 2:36 PM CDT [facility] GRAM STAIN RESULT NO ORGANISMS SEEN 12/21/2018 2:36 PM CDT [facility] CULTURE RESULT LIGHT GROWTH OF PROTEUS MIRABILIS 12/25/2018 1:01 PM CDT [facility] CULTURE RESULT LIGHT GROWTH OF STREPTOCOCCI, BETA HEMOLYTIC GROUP B SUSCEPTIBILTY NOT ROUTINELY PERFORMED. SAVING ISOLATE FOR 5 DAYS. CONTACT MICROBIOLOGY DEPARTMENT IF FURTHER WORKUP IS INDICATED. 12/25/2018 1:01 PM CDT [facility] CULTURE RESULT LIGHT GROWTH OF STAPHYLOCOCCUS AUREUS 12/25/2018 1:01 PM T [facility] CULTURE RESULT NOTE: ANAEROBIC CULTURES ARE ROUTINELY SCREENED FOR BOTH AEROBIC AND ANAEROBIC ORGANISMS. 12/25/2018 1:01 PM CDT [facility] STRUCTURE OF LEFT LOWER LIMB / Unknown 12/20/2018 3:21 PM CDT 12/20/2018 5:04 PM CDT Narrative Organism Antibiotic Method Susceptibility Proteus mirabilis AMPICILLIN MICHAEL (VITEK) >=32: Resistant Proteus mirabilis AMIKACIN MICHAEL (VITEK) <=2: Sensitive Proteus mirabilis AMPICILLIN/SULBACTAM MICHAEL (VITEK) 16: Intermediate Proteus mirabilis CEFTRIAXONE MICHAEL (VITEK) <=1: Sensitive Proteus mirabilis CEFTAZIDIME MICHAEL (VITEK) <=1: Sensitive Proteus mirabilis CEFAZOLIN MICHAEL (VITEK) >=64: Resistant Proteus mirabilis GENTAMICIN MICHAEL (VITEK) >=16: Resistant Proteus mirabilis LEVOFLOXACIN MICHAEL (VITEK) 4: Intermediate Proteus mirabilis PIPRACIL/TAZO MICHAEL (VITEK) <=4: Sensitive Proteus mirabilis TRIMETH-SULFAMETH. MICHAEL (VITEK) >=320: Resistant Proteus mirabilis TOBRAMYCIN MICHAEL (VITEK) 8: Intermediate Staphylococcus aureus CLINDAMYCIN MICHAEL (VITEK) <=0.25: Sensitive Staphylococcus aureus ERYTHROMYCIN MICHAEL (VITEK) <=0.25: Sensitive Staphylococcus aureus OXACILLIN MICHAEL (VITEK) 0.5: Sensitive Staphylococcus aureus PENICILLIN G MICHAEL (VITEK) >=0.5: Resistant Staphylococcus aureus TRIMETH-SULFAMETH. MICHAEL (VITEK) <=10: Sensitive Staphylococcus aureus TETRACYCLINE MICHAEL (VITEK) <=1: Sensitive Babar Sullivan MD MICROBIOLOGY - GENERAL ORDERABLE S Final Result Performing Organization Address [facility] Co de Phone Number [facility] [address] [place] [address], * (ABNORMAL) POCT glucose (12/20/2018 2:41 PM CDT) [facility] GLUCOSE POC 407(HH) 70 - 99 mg/dL 12/24/2018 8:34 AM CDT [facility] ORDERS INTERFACE 12/20/2018 2:41 PM CDT Babar Sullivan MD POCT ORDERABLES - DEVICE Final R esult Performing Organization Address [facility] Co de Phone Number [facility] ORDERS INTERFACE US documented in this encounter Visit Diagnoses Diagnosis Chronic venous hypertension (idiopathic) with ulcer and inflammation of bilateral lower extremity (CODE) (CMS/HCC HHS/HCC)- Primary Peripheral arterial disease (CMS/HCC) Peripheral vascular disease, unspecified Peripheral arterial disease (CMS/HCC) Peripheral vascular disease, unspecified Chronic venous hypertension (idiopathic) with ulcer and inflammation of bilateral lower extremity (CODE) (CMS/HCC HHS/HCC) documented in this encounter Care Teams Boss Dyer Relationship Specialty Start Date End Date Cecilio Aldrich MD [address] [place] [address] PCP - General [employer] HOME DEMONSTRATOR 12/10/18 02/09/19 Damon Swanson MD [address] [place] [address] INTERNAL MEDICINE 12/10/18 documented as of this encounter
--- OUTSIDE RECORDS SUMMARY | 2024-02-26 21:26 | XMS_ITS | Encounter Summary ---
Author Organization [facility] Address [address] [place] [address]. [place] [address] [place] [address] Care Team Providers Care Automated Access Systems Technician Name Role Phone Cecilio Aldrich MD Primary Care Provider [phone] Damon Swanson MD Unavailable [phone] Encounter Details Date Type Department Care Team (Late st Contact Info) Description 01/04/2019 8:00 AM CDT Home Care Visit [facility] [address] [place] [address] Deneen Wilkes, ONI[address] [place] [address] [facility] Social History Tobacco Use [...] Sign Reading Time Taken Comments Blood Pressure 116/64 01/04/2019 8:49 AM CDT Pulse 74 01/04/2019 8:49 AM CDT Temperature 36.2 ??C (97.1 ??F) 01/04/2019 8:49 AM CD T Respiratory Rate 18 01/04/2019 8:49 AM CDT Oxygen Saturation - - Inhaled [...] changes or concerns reported to supervising therapist, outpatient case manager and or provider. Therapies Vitals [...] each isit and report any changes to outpatient case manager and/or supervising OT. Problem:Therapies Medications Goal:Therapies - Understanding of Medications - Occupational Therapy Completed no medication changes, per patient and updated list in home Therapies - Transfer Training Description: Instruct patient in obtaining DME and proper use of DME in home with proper transfer techniques. Problem:Therapies Transfer Training Goal:Occupational Therapy - Transfer Training Completed Patient completed functional mobility around home with walker with CGA. Patient completed toilet transfer with min A to descend and CGA to stand up from standard toilet while pushing up from sink. Ed patient on use of RTS and how to obtain, understanding verbalized. Patient min A for sit to stand from couch. Patient completed walk in shower transfer with min A. Instruct Home Safety Description: Instruct patient/caregiver on strategies/modificati ons to home environment including fall prevention measures. Problem:Home Safety Goal:Remain Safe in Home Completed Reviewed safety awareness and fall prevention measures including use of AD/DME, nonskid footwear, use of night lights, and clear pathways. Understanding verbalized. Therapies - Vitals Description: OT, outpatient case manager and/or physician to be contacted [...] Goal:OT Fine Motor Coordination Completed Patient completed FMC activites with increased ease this date. OT ADL training Description: Instruct patient in compensatory techniques and safety awareness for increased self care independence. Problem:OT IADL/ADL Training Completed Reviewed adaptive strategies and techniques. Patient completed LB clothing mangement for toileting task with SBA with one UE support on walker. Patient completed toileting task with SBA. Patient completed hand hygiene task while standing at sink with SBA. documented in this encounter Care Teams Automated Access Systems Technician Relationship Specialty Start Date End Date Cecilio Aldrich MD [address] [place] [address] PCP - General LIQUOR TESTER 12/10/18 02/09/19 Damon Swanson MD [address] [place] [address] INTERNAL MEDICINE 12/10/18 documented as of this encounter
--- OUTSIDE RECORDS SUMMARY | 2024-02-26 21:26 | XMS_ITS | Encounter Summary ---
Author Organization [facility] Address [address] [place] [address]. [place] [address] [place] [address] Care Team Providers Care Casket Liner Name Role Phone Cecilio Aldrich MD Primary Care Provider [phone] Damon Swanson MD Unavailable [phone] Reason for Visit * Reason Comments Hyperglycemia Encounter Details Date Type Department Care Team (Late st Contact Info) Description 12/10/2018 11:17 AM CDT - 12/10/2018 7:37 PM CDT Emergency [facility] Emergency Room [place], [place] [id number] Jose Roldan MD [address] [id number] Hyperglycemia Discharge Disposition: Home or Self Care (Routine [...] Sign Reading Time Taken Comments Blood Pressure 154/81 12/10/2018 7:00 PM CDT Pulse 70 12/10/2018 6:01 PM CDT Temperature 36.5 ??C (97.7 ??F) 12/10/2018 11:09 AM C DT Respiratory Rate 18 12/10/2018 7:00 PM CDT Oxygen Saturation 100% 12/10/2018 7:00 PM CDT Inhaled Oxygen Concentration - - Weight 90.7 kg (200 lb) 12/10/2018 11:09 AM CDT Height - - Body Mass Index - - documented in this encounter Discharge Instructions * Attachments The following attachments cannot be sent through Care Everywhere. * Hyperglycemia Discharge Instructions, Adult (Salvadorean) documented in this encounter Medications at Time of Discharge acetaminophen 500 MG tabletIndication s:Pain Take 1,000 mg by mouth daily as needed for Pain. Indications: Pain 12/11/2018 0 atorvastatin 80 MG tabletIndication s:Hypercholester olemia Take 80 mg by mouth daily. Indications: High Amount of Cholesterol in the Blood 11/29/2018 0 cephALEXin 500 MG capsule Take 500 mg by mouth 3 (three) times a day. 11/29/2018 9 levothyroxine 25 MCG tabletIndication s:Hypothyroidism Take 25 mcg by mouth daily. Indications: Underactive Thyroid 11/29/2018 0 metFORMIN 500 MG tablet Take 500 mg by mouth daily. 9 metFORMIN 500 MG tablet [The details of the medication are not available because there are pending changes by a home health clinician.] 60 tablet 12/10/2018 0 valsartan 160 MG tabletIndication s:Hypertension,h eart failure Take 160 mg by mouth daily. Indications: High Blood Pressure Disorder, heart failure 11/29/2018 0 documented as of this encounter ED Notes * Matty Kumar RN - 12/10/2018 7:36 PM CDT Provider discussed today's findings with the patient/family. The patient has been given informationregarding their treatment, follow up and concerning symptoms for which they should seek urgent or emergent attention. I have expressed the the importance of seeking attention should there be any new,or worsening symptoms or persistence of their condition. Patient verbalized understanding of the discharge instructions. * Maximino Lion MD - 12/10/2018 7:15 PM CDT This patient was signed out to me as the patient was getting repeat blood sugar and was being discharged in there is nothing for me to do. The patient however did not have the discharge icon launched. After a few hours the nurse asked me about the patient. I realized that the discharge icon was notlocked. I went and saw the patient who is in no distress and no complaints. As a result the patient was discharged. Patient's laboratories were reviewed. She remains hyperglycemic but I believe this can be treated with her usual medications at her facility. Maximino Lion MD 12/10/181914 * Stephanie Whatley RN - 12/10/2018 6:56 PM CDT Blood sugar 337. STEPHANIE WHATLEY RN * Stephanie Whatley RN - 12/10/2018 5:35 PM CDT Blood sugar 359. STEPHANIE WHATLEY RN * Jose Roldan MD - 12/10/2018 12:43 PM CDT Chief Complaint Chief Complaint Patient presents with ??? Hyperglycemia History of Present Illness This patient is a 63yo AAF with PMH HTN, DM who was referred to the ED for evaluation of hyperglycemia. Pt presented to wound clinic today for evaluation of diabetic foot ulcers. These were treated, but it was noted that her blood glucose is quite high. So, she was referred to the ED. The patient denies any acute complaints or illnesses. She reports that her insulin was changed by her PCP. The new insulin caused her feet to swell. So, she stopped taking it. It is unclear when thisoccurred. Medical History ALLERGIES: Allergies Allergen Reactions ??? Codeine Nausea and Vomiting MEDICATIONS: Prior to Admission medications Medication Sig Start Date End Date Taking? Authorizing Provider acetaminophen 500 MG tablet Take 1,000 mg by mouth daily as needed for Pain. Yes Doc Abstract atorvastatin 80 MG tablet Take 80 mg by mouth daily. 11/29/18 Yes Doc Abstract cephALEXin 500 MG capsule Take 500 mg by mouth 3 (three) times a day. 11/29/18 Yes Doc Abstract levothyroxine 25 MCG tablet Take 25 mcg by mouth daily. 11/29/18 Yes Doc Abstract metFORMIN 500 MG tablet Take 1 tablet (500 mg total) by mouth 2 (two) times daily with meals. 12/10/18 Yes Jose Roldan MD valsartan 160 MG tablet Take 160 mg by mouth daily. 11/29/18 Yes Doc Abstract metFORMIN 500 MG tablet Take 500 mg by mouth daily. Doc Abstract PAST MEDICAL HISTORY: Past Medical [...] Review of Systems Review of Systems Constitutional: Negative. HENT: Negative. Respiratory: Negative. Cardiovascular: Negative. Gastrointestinal: Negative. Genitourinary: Negative. Musculoskeletal: Negative. Skin: Positive for wound. Neurological: Negative. All other systems reviewed and are negative. Physical Exam Filed Vitals: 12/10/18 1636 12/10/18 1743 12/10/18 1801 12/10/18 1900 BP: 167/80 (!) 175/95 (!) 179/92 154/81 Pulse: 67 69 70 Resp: 18 18 18 18 Temp: TempSrc: SpO2: 100% 100% 100% 100% Weight: Physical Exam Constitutional: She is oriented to person, place, and time. She appears well- developed and well-nourished. HENT: Head: Normocephalic and atraumatic. Mouth/Throat: Oropharynx is clear and moist. Eyes: Conjunctivae and EOM are normal. Pupils are equal, round, and reactive to light. Neck: Normal range of motion. Neck supple. No JVD present. No tracheal deviation present. Cardiovascular: Normal rate, regular rhythm, normal heart sounds and intact distal pulses. Pulmonary/Chest: Effort normal and breath sounds normal. Abdominal: Soft. She exhibits no distension and no mass. There is no tenderness. There is no rebound and no guarding. Musculoskeletal: Normal range of motion. She exhibits no edema. Lymphadenopathy: She has no cervical adenopathy. Neurological: She is alert and oriented to person, place, and time. She has normal strength. No sensory deficit. No motor deficit. Skin: Skin is warm and dry. Nursing note and vitals reviewed. Diagnostic Studies / Procedures ELECTROCARDIOGRAMS: No results found for this visit on 12/10/18. LABORATORY STUDIES: Results for orders placed or performed during the hospital encounter of 12/10/18 CBC W/DIFF AUTOMATED Result Value Ref Range WBC 4.8 4.5 - 11.0 x10'3/uL RBC 3.35 (L) 4.20 - 5.40 x10'6/uL HGB 10.0 (L) 12.0 - 16.0 G/DL HCT 29.9 (L) 38.0 - 48.0 % MCV 89.3 81.0 - 99.0 FL MCH 29.9 27.0 - 31.0 PG MCHC 33.4 32.0 - 36.0 G/DL RDW 13.4 11.5 - 14.5 % PLT 239 130 - 400 x10'3/uL MPV 10.7 9.3 - 12.2 FL DIFFERENTIAL TYPE AUTOMATED DIFFERENTIAL NEUTROPHILS 66.5 % LYMPHOCYTES 23.5 % MONOCYTES 7.5 % EOSINOPHILS 1.3 % BASOPHILS 0.8 % IMMATURE GRANS 0.4 % ABS. NEUTROPHILS TOTAL 3.17 1.80 - 7.70 x10'3/uL ABS. LYMPHOCYTES 1.12 1.00 - 4.80 x10'3/uL ABS. MONOCYTES 0.36 0.24 - 0.86 x10'3/uL ABS. EOSINOPHILS 0.06 0.04 - 0.36 x10'3/uL ABS. BASOPHILS 0.04 0.01 - 0.08 x10'3/uL ABS. IMMATURE GRANULOCYTES 0.02 0.00 - 0.49 x10'3/uL COMPREHENSIVE METABOLIC PANEL Result Value Ref Range GLUCOSE 463 (HH) 70 - 99 MG/DL BUN 26 (H) 7 - 18 MG/DL CREATININE 1.21 (H) 0.55 - 1.02 MG/DL SODIUM 131 (L) 136 - 145 MMOL/L POTASSIUM 3.9 3.5 - 5.1 MMOL/L CHLORIDE 96 (L) 100 - 108 MMOL/L CO2 29.1 21 - 32 MMOL/L CALCIUM 8.7 8.5 - 10.1 MG/DL TOTAL BILIRUBIN 0.6 0.2 - 1.2 MG/DL TOTAL PROTEIN 7.9 6.4 - 8.2 G/DL ALBUMIN 3.3 (L) 3.4 - 5.0 G/DL AST 26 15 - 37 U/L ALT 31 14 - 55 U/L ALK PHOS 117 50 - 136 U/L ANION GAP 5.9 5 - 15 MMOL/L BUN CREATININE RATIO 21.5 6 - 26 A/G RATIO 0.7 (L) 1.0 - 2.0 RATIO eGFR Non-Afr. Amer. 48 (L) >90 ML/MIN/1.73 M2 eGFR Afr. Amer. 55 (L) >90 ML/MIN/1.73 M2 LDH, LACTATE DEHYDROGENASE Result Value Ref Range LDH 302 (H) 84 - 246 UNITS/L POCT glucose Result Value Ref Range GLUCOSE POC >500 (HH) 70 - 99 mg/dL POCT glucose Result Value Ref Range WHOLE BLOOD GLUCOSE >500 70 - 100 mg/dL POCT glucose Result Value Ref Range WHOLE BLOOD GLUCOSE 433 (A) 70 - 100 mg/dL POCT glucose Result Value Ref Range GLUCOSE POC 433 (HH) 70 - 99 mg/dL POCT glucose Result Value Ref Range WHOLE BLOOD GLUCOSE 377 (A) 70 - 100 mg/dL POCT glucose Result Value Ref Range GLUCOSE POC 337 (H) 70 - 99 mg/dL POCT glucose Result Value Ref Range WHOLE BLOOD GLUCOSE 336 (A) 70 - 100 mg/dL POCT glucose Result Value Ref Range GLUCOSE POC 336 (H) 70 - 99 mg/dL POCT glucose Result Value Ref Range GLUCOSE POC 359 (H) 70 - 99 mg/dL POCT glucose Result Value Ref Range GLUCOSE POC 337 (H) 70 - 99 mg/dL IMAGING STUDIES No orders to display ED Course / Medical Decision Making The patient is a poor historian regarding her medications. She is fully oriented and is able to tell me the address for her daughter (with whom she resides) and her son (with whom she previous resided). I confirmed that she is a patient of Dr. Aldrich in [place], [place]. They have no diabetic medications on record for her, nor does [facility] [place] [facility] [place] The patient is willing to restart metformin at 500mg BID. We will plan for this and PCP followup. Clinical Impression Hyperglycemia (Primary) Disposition: Discharge Jose Roldan MD 12/13/18 1959 * Preeti Mejia RN - 12/10/2018 12:18 PM CDT Need urine Preeti Mejia RN * URBAN Davis - 12/10/2018 11:27 AM CDT [place], [place] EMERGENCY DEPARTMENT ENCOUNTER Medical Screening Examination 12/10/18 11:27 AM Chief Complaint : Hyperglycemia HPI : Iris Pascual is a 63-year-old female who presents with hyperglycemia. Pt reports she stopped taking insulin x 1 year ago due to causing swelling to LE. Vital Signs: Filed Vitals: 12/10/18 1109 BP: 104/73 Pulse: 69 Resp: 21 Temp: 97.7 ??F (36.5 ??C) TempSrc: Oral SpO2: 100% Weight: 90.7 kg (200 lb) Physical exam: A brief physical exam was completed to facilitate/expedite patient care. Franco findings include: No acute distress, dressings noted to bilateral LE. Plan: Labs were ordered to facilitate patient care. URBAN Davis 12/10/18 1458 Cosigned by Jose Roldan MD at 12/11/2018 1:00 PM CDT * Jazmine Espinoza RN - 12/10/2018 11:10 AM CDT Pt from wound care clinic for blood sugar in 400's. Pt has DM2 but states she has not taken her insulin in over a year because it makes her feet swell. BS in triage >500. documented in this encounter Plan of Treatment Not on file documented as of this encounter Procedures Procedure Name Priority Date/Time Associated Diagnosis Comments POCT GLUCOSE - CHONG DOCKED DEVICE Routine 12/10/2018 6:55 PM CDT POCT GLUCOSE - CHONG DOCKED DEVICE Routine 12/10/2018 5:35 PM CDT POCT GLUCOSE - CHONG DOCKED DEVICE Routine 12/10/2018 4:36 PM CDT POCT GLUCOSE - CHONG DOCKED DEVICE STAT 12/10/2018 4:36 PM CDT POCT GLUCOSE - CHONG DOCKED DEVICE STAT 12/10/2018 3:52 PM CDT POCT GLUCOSE - CHONG DOCKED DEVICE Routine 12/10/2018 3:49 PM CDT POCT GLUCOSE - CHONG DOCKED DEVICE Routine 12/10/2018 2:16 PM CDT POCT GLUCOSE - CHONG DOCKED DEVICE STAT 12/10/2018 2:16 PM CDT COMPREHENSIVE METABOLIC PANEL STAT 12/10/2018 11:32 AM CDT LDH, LACTATE DEHYDROGENASE STAT 12/10/2018 11:32 AM CDT CBC W/DIFF AUTOMATED STAT 12/10/2018 11:32 AM CDT POCT GLUCOSE - CHONG DOCKED DEVICE STAT 12/10/2018 11:19 AM CDT POCT GLUCOSE - CHONG DOCKED DEVICE Routine 12/10/2018 11:13 AM CDT documented in this encounter Results * (ABNORMAL) POCT glucose (12/10/2018 6:55 PM CDT) GLUCOSE POC 337(H) 70 - 99 mg/dL 12/10/2018 6:57 PM CDT [facility] ORDERS INTERFACE 12/10/2018 6:55 PM CDT Jose Roldan MD POCT ORDERABLES - DEVICE Final Result Performing Organization Address [facility] de Phone Number [facility] LAB ORDERS INTERFACE US * (ABNORMAL) POCT glucose (12/10/2018 5:35 PM CDT) GLUCOSE POC 359(H) 70 - 99 mg/dL 12/10/2018 6:25 PM CDT [facility] LAB ORDERS INTERFACE 12/10/2018 5:35 PM CDT Jose Roldan MD POCT ORDERABLES - DEVICE Final Result Performing Organization Address [facility] de Phone Number [facility] LAB ORDERS INTERFACE US * (ABNORMAL) POCT glucose (12/10/2018 4:36 PM CDT) GLUCOSE POC 336(H) 70 - 99 mg/dL 12/10/2018 4:39 PM CDT [facility] LAB ORDERS INTERFACE 12/10/2018 4:36 PM CDT Jose Roldan MD POCT ORDERABLES - DEVICE Final Result Performing Organization Address [facility] Co de Phone Number [facility] ORDERS INTERFACE US * (ABNORMAL) POCT glucose (12/10/2018 4:36 PM CDT) GLUCOSE WHOLE BLOOD 336(A) 70 - 100 mg/dL [facility] Jose Roldan MD POCT ORDERABLES - DEVICE Final Result Performing Organization Address [facility]/ZIP Co de Phone Number [facility] [address] [place] [address], [place] [phone] * (ABNORMAL) POCT glucose (12/10/2018 3:52 PM CDT) GLUCOSE WHOLE BLOOD 377(A) 70 - 100 mg/dL [facility] Jose Roldan MD POCT ORDERABLES - DEVICE Final Result Performing Organization Address [facility] Co de Phone Number [facility] [address] [place] [address], [place] [phone] * (ABNORMAL) POCT glucose (12/10/2018 3:49 PM CDT) GLUCOSE POC 337(H) 70 - 99 mg/dL 12/10/2018 4:05 PM CDT [facility] ORDERS INTERFACE 12/10/2018 3:49 PM CDT Jose Roldan MD POCT ORDERABLES - DEVICE Final Result Performing Organization Address [facility]/ZIP Co de Phone Number [facility] LAB ORDERS INTERFACE US * (ABNORMAL) POCT glucose (12/10/2018 2:16 PM CDT) GLUCOSE POC 433(HH) 70 - 99 mg/dL 12/10/2018 2:18 PM CDT [facility] ORDERS INTERFACE 12/10/2018 2:16 PM CDT Jose Roldan MD POCT ORDERABLES - DEVICE Final Result [facility] ORDERS INTERFACE US * (ABNORMAL) POCT glucose (12/10/2018 2:16 PM CDT) GLUCOSE WHOLE BLOOD 433(A) 70 - 100 mg/dL [facility] Jose Roldan MD POCT ORDERABLES - DEVICE Final Result Performing Organization Address [facility] Co de Phone Number [facility] [address] [place] [address], [place] [phone] * (ABNORMAL) LDH, LACTATE DEHYDROGENASE (12/10/2018 11:32 AM CDT) Pathologist [facility] LDH 302(H) 84 - 246 UNITS/L 12/10/2018 1:[address] [facility] 12/10/2018 11:3 2 AM CDT Chris Burns BUSINESS SUPPORT LIAISON-C LABORATORY Final Resu lt Performing Organization Address [facility] Co de Phone Number [facility] [address] [place] [address], [place] [phone] * (ABNORMAL) COMPREHENSIVE METABOLIC PANEL (12/10/2018 11:32 AM CDT) Pathologist [facility] GLUCOSE 463(HH) 70 - 99 MG/DL 12/10/2018 1:[address] [facility] Comment:KS CALLED CRITICAL R ESULTS AT [id number] TO AND READ BACK BY NERISSA MORALES BUN 26(H) 7 - 18 MG/DL 12/10/2018 1:[address] [facility] CREATININE S/P/B 1.21(H) 0.55 - 1.02 MG/DL 12/10/2018 1:[address] [facility] SODIUM S/P/B 131(L) 136 - 145 MMOL/L 12/10/2018 1:[address] [facility] POTASSIUM S/P/B 3.9 3.5 - 5.1 MMOL/L 12/10/2018 1:31 PM [facility] CHLORIDE S/P/B 96(L) 100 - 108 MMOL/L 12/10/2018 1:31 PM [facility] CO2 29.1 21 - 32 MMOL/L 12/10/2018 1:31 PM [facility] CALCIUM S/P/B 8.7 8.5 - 10.1 MG/DL 12/10/2018 1:[address] [facility] BILIRUBIN TOTAL S/P/B 0.6 0.2 - 1.2 MG/DL 12/10/2018 1:31 PM [facility] TOTAL PROTEIN S/P/B 7.9 6.4 - 8.2 G/DL 12/10/2018 1:31 PM [facility] ALBUMIN S/P/B 3.3(L) 3.4 - 5.0 G/DL 12/10/2018 1:31 PM [facility] AST 26 15 - 37 U/L 12/10/2018 1:31 PM [facility] ALT 31 14 - 55 U/L 12/10/2018 1:31 PM [facility] ALKALINE PHOSPHATASE S/P/B 117 50 - 136 U/L 12/10/2018 1:31 PM [facility] ANION GAP 5.9 5 - 15 MMOL/L 12/10/2018 1:[address] [facility] BUN CREATININE RATIO 21.5 6 - 26 12/10/2018 1:31 PM [facility] A/G RATIO 0.7(L) 1.0 - 2.0 RATIO 12/10/2018 1:31 PM [facility] EGFR NON-AFR. AMER. 48(L) >90 ML/MIN/1.7 3 M2 12/10/2018 1:[address] [facility] EGFR AFR. AMER. 55(L) >90 ML/MIN/1.7 3 M2 12/10/2018 1:[address] [facility] Comment: NOTE: eGFR is not calculated for patients <18 years of age. This is an estimated GFR (CKD EPI) and should not be used for calculating drug doses. 12/10/2018 11:3 2 AM CDT us Chris Burns BUSINESS SUPPORT LIAISON-C LABORATORY Final Resu lt [facility] [address] [place] [address], [place] [phone] * (ABNORMAL) CBC W/DIFF AUTOMATED (12/10/2018 11:32 AM CDT) WBC 4.8 4.5 - 11.0 x10'3/uL 12/10/2018 11:[address] [facility] RBC 3.35(L) 4.20 - 5.40 x10'6/uL 12/10/2018 11:[address] [facility] HGB 10.0(L) 12.0 - 16.0 G/DL 12/10/2018 11:[address] [facility] HCT 29.9(L) 38.0 - 48.0 % 12/10/2018 11:[address] [facility] MCV 89.3 81.0 - 99.0 FL 12/10/2018 11:[address] [facility] MCH 29.9 27.0 - 31.0 PG 12/10/2018 11:[address] [facility] MCHC 33.4 32.0 - 36.0 G/DL 12/10/2018 11:[address] [facility] RDW 13.4 11.5 - 14.5 % 12/10/2018 11:[address] [facility] PLT 239 130 - 400 x10'3/uL 12/10/2018 11:56 AM [facility] MPV 10.7 9.3 - 12.2 FL 12/10/2018 11:[address] [facility] DIFFERENTIAL TYPE AUTOMATED DIFFERENTIAL 12/10/2018 11:[address] [facility] NEUTROPHILS % 66.5 % 12/10/2018 11:[address] [facility] LYMPHOCYTES % 23.5 % 12/10/2018 11:[address] [facility] MONOCYTES % 7.5 % 12/10/2018 11:[address] [facility] EOSINOPHILS 1.3 % 12/10/2018 11:[address] [facility] BASOPHILS 0.8 % 12/10/2018 11:[address] [facility] IMMATURE GRANS % 0.4 % 12/11/19 19 11:56 AM [facility] ABS. NEUTROPHILS TOTAL 3.17 1.80 - 7.70 x10'3/uL 12/10/2018 11:[address] [facility] ABS. LYMPHOCYTES 1.12 1.00 - 4.80 x10'3/uL 12/10/2018 11:[address] [facility] ABS. MONOCYTES 0.36 0.24 - 0.86 x10'3/uL 12/10/2018 11:56 AM [facility] ABS. EOSINOPHILS 0.06 0.04 - 0.36 x10'3/uL 12/10/2018 11:56 AM [facility] ABS. BASOPHILS 0.04 0.01 - 0.08 x10'3/uL 12/10/2018 11:[address] [facility] ABS. IMMATURE GRANULOCYTES 0.02 0.00 - 0.49 x10'3/uL 12/10/2018 11:[address] [facility] 12/10/2018 11:3 2 AM CDT Chris Burns BUSINESS SUPPORT LIAISON-C LABORATORY Final Resu lt Performing Organization Address [facility] Co de Phone Number [facility] [address] [place] [address], * (ABNORMAL) POCT glucose (12/10/2018 11:19 AM CDT) GLUCOSE WHOLE BLOOD >500 70 - 100 mg/dL [facility] Jose Roldan MD POCT ORDERABLES - DEVICE Final Result Performing Organization Address [facility] de Phone Number [facility] [address] [place] [address], * (ABNORMAL) POCT glucose (12/10/2018 11:13 AM CDT) GLUCOSE POC >500(HH) 70 - 99 mg/dL 12/10/2018 11:17 AM CDT [facility] LAB ORDERS INTERFACE Comment:Notified RN 12/10/2018 11:1 3 AM CDT Attending Physician Emergency MD POCT ORDERABLES - DEVICE Final Result Performing Organization Address [facility] Co de Phone Number [facility] LAB ORDERS INTERFACE US documented in this encounter Visit Diagnoses Diagnosis Hyperglycemia- Primary Other abnormal glucose documented in this encounter Administered Medications Inactive Administered Medications - up to 3 most recent administrations Medication Order MAR Action Action Date Dose Rate Site amlodipine (NORVASC) tablet 10 mg 10 mg, Oral, Once, 1 dose, On Mon12/10/18 at 1415 Given 12/10/2018 2:11 PM CDT 10 mg insulin regular (NOVOLIN R/HUMULIN R) injection 10 Units 10 Units, Intravenous, Once, 1 dose, On Mon12/10/18 at 1345, For sliding scale, activate Sliding Scale Insulin order set. Given 12/10/2018 1:42 PM CDT 10 Units sodium chloride 0.9% bolus infusion SOLN 1,000 mL 1,000 mL, Intravenous, Administer over 15 Minutes, Once, 1 dose, On Mon12/10/18 at 1130 New Bag 12/10/2018 12:45 PM CDT 1,000 mLs documented in this encounter Active and Recently Administered Medications Times are shown in CDT. Scheduled Medication Order 12/08/2018 12/09/2018 12/10/2018 amlodipine (NORVASC) tablet 10 mg (COMPLETED) 10 mg, Oral, Once, 1 dose, On Mon12/10/18 at 1415 1411 (Given - Provid er: Preeti Mejia RN) insulin regular (NOVOLIN R/HUMULIN R) injection 10 Units (COMPLETED) 10 Units, Intravenous, Once, 1 dose, On Mon12/10/18 at 1345, For sliding scale, activate Sliding Scale Insulin order set. 1342 (Given - Provid er: Stephanie Whatley RN) sodium chloride 0.9% bolus infusion SOLN 1,000 mL (COMPLETED) 1,000 mL, Intravenous, Administer over 15 Minutes, Once, 1 dose, On Mon12/10/18 at 1130 1245 (New Bag - Prov ider: Stephanie Whatley RN)1449 (Infusion Stop Time - Provider: Stephanie Whatley RN) documented in this encounter Care Teams Casket Liner Relationship Specialty Start Date End Date Cecilio Aldrich MD [address] [place] [address] PCP - General LEATHER TOOLER 12/10/18 02/09/19 Damon Swanson MD [address] [place] [address] INTERNAL MEDICINE 12/10/18 documented as of this encounter
--- OUTSIDE RECORDS SUMMARY | 2024-02-26 21:26 | XMS_ITS | Encounter Summary ---
Author Organization [facility] Address [address] [place] [address]. [place], [place] [id number] [place] [address] Care Team Providers Care Health Researcher Name Role Phone Cecilio Aldrich MD Primary Care Provider [phone] Damon Swanson MD Unavailable [phone] Encounter Details Date Type Department Care Team (Late st Contact Info) Description 12/21/2018 9:00 AM CDT Home Care Visit [address] [place] [address] Cris Lim, SENIOR IT AUDITOR PT HOME VISIT Social History Tobacco Use [...] Sign Reading Time Taken Comments Blood Pressure 124/78 12/21/2018 9:48 AM CDT Pulse 72 12/21/2018 9:48 AM CDT Temperature 35.9 ??C (96.6 ??F) 12/21/2018 9:48 AM CD T Respiratory Rate 18 12/21/2018 9:48 AM CDT Oxygen Saturation - - Inhaled [...] goal intervention scheduled/documen monalisa in this visit A Plan for Next Visit Disciplines: Physical [...] through 01/11/2019 for all disciplines. Care Coordination No Provide Continuity of Care Description: To provide continuity of care A Plan for Next Visit No Therapies - Understanding of Medications - Physical Therapy Description: Patient will verbalize understanding of medication regimen by 01/11/2019. Therapies Medications No Remain Safe in Home Description: STG - Patient to state 3 fall prevention/home safety techniques to reduce risk of falls by 12/28/2018 Home Safety No Physical Therapy - Vital Signs Description: Vitals to be monitored as needed including pulse oximetry and changes or concerns reported to supervising therapist, case reviewer, and/or provider. Therapies Vitals No PT Gait Training Description: LTG- Patient to ambulate independently indoors with device as needed for 100 feet to assist with MD appointments by 01/11/2019 PT Gait Training No Physical Therapy - Transfer Training Description: LTG - Patient to perform bed/furniture transfers independently by 01/11/1029 Therapies Transfer Training No PT Therapeutic Exercise Description: LTG - Patient to demonstrate independence with home exercise program to promote increased lower extremity muscle strength to 4/5 to assist with transfers and ambulation by 01/11/2019 PT Therapeutic Exercise No Interventions Intervention Associated Problem/Goal Status Variance Visit Notes Care Coordination Description: Clinician to review care plan with patient/cargiver(s). Patient/caregiver agrees to plan of care and agrees to participate in care. Problem:Care Coordination Goal:Coordination of Care/Interpretive Services Completed Spoke with PT regarding POC and findings of eval. Spoke with daughter regarding the need for a 3 and 1 commode to be able to stand from toilet with less assist and improved safety. Also suggested to get bedrisers for under couch to raise sitting surface again to increase independence for patients transfers. Daughter open to suggestions Plan for Next Visit Description: Next visit plan summation Problem:A Plan for Next Visit Goal:Provide Continuity of Care Completed Increase r knee ext and decrease effort to stand Review Medications Description: Clinician to review medications with patient/caregiver each visit and report any changes to case reviewer and/or supervising PT Problem:Therapies Medications Goal:Therapies - Understanding of Medications - Physical Therapy Completed No new meds since last MD visit Instruct Home Safety Description: Instruct patient on strategies/modificatio ns to home environment. Problem:Home Safety Goal:Remain Safe in Home Completed Pt instructed on safety by removing through rugs and to control stand to sit to the toilet. Also recommended grab bar in the bathroom or 3 and 1 commode Therapies - Vitals Description: PT , case reviewer, and/or physician to be contacted if pulse [...] Gait Training Goal:PT Gait Training Completed Pt training 30' x 2 with ww and cga and verbal cues for safety, walker placement and upright posture. Therapies - Transfer Training Description: Evaluate and instruct patient in safe transfers using appropriate body mechanics and necessary equipment to perform safe transfers. Problem:Therapies Transfer Training Goal:Physical Therapy - Transfer Training Completed Pt performed sit to stand transfers x 5 with mod a from the couch to walker. Pt required instruction on sequencing, foot/hand placement to decrease effort and assistance and increase independency and safety. Pt requires cues to sit slowly and flex knees to increae le strength with functional mobility. Pt performed toilet transfer x 1 with mod a and cues for hand placement and to control stand to sit transfer. Pt reports, the toilet will catch me. Explained to patient that the is not a safe practice. Therapies Balance Description: Assess balance and perform balance activities to decrease risk of falls Problem:PT Therapeutic Exercise Goal:PT Therapeutic Exercise Completed Pt performed static stand balance with out support with cga and cues for upright posture. Pt only able to stand for approx 20 seconds without support. Therapies - Therapeutic Exercise Description: HEP for lower extremity strengthening to assist with transfers and ambulation. Problem:PT Therapeutic Exercise Goal:PT Therapeutic Exercise Completed Pt started on hep x 15 reps for ankle df/pf (with limited ROM due to discomfort)), knee ext/flex (knee ext significantly limited on Right) and hip flexion. Pt requires assistance to complete rom and tactile cues to facilitate appropriate mm groups. Pt received hamstring stretching on the r le documented in this encounter Care Teams Health Researcher Relationship Specialty Start Date End Date Cecilio Aldrich MD [address] [place] [address] PCP - General VICE PRESIDENT MEDIA RELATIONS 12/10/18 02/09/19 Damon Swanson MD [address] [place] [address] INTERNAL MEDICINE 12/10/18 documented as of this encounter
--- OUTSIDE RECORDS SUMMARY | 2024-02-26 21:26 | XMS_ITS | Encounter Summary ---
Author Organization [facility] Address [address] [place] [address]. [place] [address] [place] [address] Care Team Providers Care Curriculum Development Coordinator Name Role Phone Cecilio Aldrich MD Primary Care Provider [phone] Damon Swanson MD Unavailable [phone] Encounter Details Date Type Department Care Team (Latest Contact Info) Description 12/20/2018 5:03 PM CDT - 12/20/2018 11:59 PM CDT Hospital Encounter [facility] [place] [address] Babar Sullivan MD Discharge Disposition: Home or [...] of Cholesterol in the Blood 11/29/2018 0 levothyroxine 25 MCG tabletIndication s:Hypothyroidism Take 25 [...] Name Priority Date/Time Associated Diagnosis Comments CULTURE, ANAEROBIC Routine 12/20/2018 3: 21 PM CDT Chronic venous hypertension (idiopathic) with ulcer and inflammation of bilateral lower extremity (CODE) ([facility]) documented in this encounter Results * CULTURE ANAEROBIC (12/20/2018 3:21 PM CDT) SPEC DESCRIPTION LEG,LEFT 12/20/2018 5:04 PM CDT [facility] SPECIAL REQUESTS NO SPECIAL REQUEST 12/20/2018 5:04 PM CDT [facility] GRAM STAIN RESULT NO WHITE BLOOD CELLS SEEN 12/21/2018 2:36 PM CDT [facility] GRAM STAIN RESULT NO ORGANISMS SEEN 12/21/2018 2:36 PM CDT [facility] CULTURE RESULT LIGHT GROWTH OF PROTEUS MIRABILIS 12/25/2018 1:01 PM CDT [facility] CULTURE RESULT LIGHT GROWTH OF STREPTOCOCCI, BETA HEMOLYTIC GROUP B SUSCEPTIBILTY NOT ROUTINELY PERFORMED. SAVING ISOLATE FOR 5 DAYS. CONTACT MICROBIOLOGY DEPARTMENT IF FURTHER WORKUP IS INDICATED. 12/25/2018 1:01 PM CDT [facility] CULTURE RESULT LIGHT GROWTH OF STAPHYLOCOCCUS AUREUS 12/25/2018 1:01 PM T [facility] CULTURE RESULT NOTE: ANAEROBIC CULTURES ARE ROUTINELY SCREENED FOR BOTH AEROBIC AND ANAEROBIC ORGANISMS. 12/25/2018 1:01 PM CDT [facility] STRUCTURE OF LEFT LOWER [...] MICROBIOLOGY - GENERAL ORDERABLE S Final Result [facility] [address] [place] [address], documented in this encounter Visit Diagnoses Diagnosis Chronic venous hypertension (idiopathic) with ulcer and inflammation of bilateral lower extremity (CODE) (CMS/HCC HHS/HCC) documented in this encounter Care Teams Curriculum Development Coordinator Relationship Specialty Start Date End Date Cecilio Aldrich MD [address] [place] [id number] PCP - General PANELBOARD OPERATOR 12/10/18 02/09/19 Damon Swanson MD [address] [place], [place] [id number] INTERNAL MEDICINE 12/10/18 documented as of this encounter
--- OUTSIDE RECORDS SUMMARY | 2024-02-26 21:26 | XMS_ITS | Encounter Summary ---
Author Organization [facility] Address [address] [place] [address]. [place] [address] [place] [address] Care Team Providers Care Supervisor [employer] Name Role Phone Cecilio Aldrich MD Primary Care Provider [phone] Damon Swanson MD Unavailable [phone] Encounter Details Date Type Department Care Team (Late st Contact Info) Description 12/24/2018 Home Care Visit [facility] [address] [place], [place] [id number] Adele Zamora RN [phone] (Work) CASE COMMUNICATION Social History Tobacco Use Types [...] filedocumented in this encounter Care Teams Supervisor [employer] Relationship Specialty Start Date End Date Cecilio Aldrich MD [address] [place] [address] PCP - General INCIDENT COORDINATOR 12/10/18 02/09/19 Damon Swanson MD [address] [place] [address] INTERNAL MEDICINE 12/10/18 documented as of this encounter
--- OUTSIDE RECORDS SUMMARY | 2024-02-26 21:26 | XMS_ITS | Encounter Summary ---
Author Organization [facility] Address [address] [place] [address]. [place], [place] [address] [place] [address] Care Team Providers Care A&P Mechanic Name Role Phone Cecilio Aldrich MD Primary Care Provider [phone] Damon Swanson MD Unavailable [phone] Reason for Visit * Reason Comments Wound Encounter Details Date Type Department Care Team (Late st Contact Info) Description 12/24/2018 8:30 AM CDT Home Care Visit [facility] Care [address] [place] [address] Adele Zamora RN [phone] (Work) SN HOME VISIT Social History [...] Sign Reading Time Taken Comments Blood Pressure 140/80 12/24/2018 8:26 AM CDT Pulse 76 12/24/2018 8:26 AM CDT Temperature 35.8 ??C (96.4 ??F) 12/24/2018 8:26 AM CD T Respiratory Rate 18 12/24/2018 8:26 AM CDT Oxygen Saturation - - Inhaled Oxygen Concentration - - Weight - - Height - - Body Mass Index - - documented in this encounter Plan of Treatment Not on file documented as of this encounter Visit Diagnoses Not on filedocumented in this encounter Home Health Visit - Care Plan Visit Details Visit Type -SN - Home Visit Discipline -Residential Problems Problem Description Start Date Status Goals Interve ntions Discharge Planning Disciplines: Residential Discharge Planning 12/19/2018 Active 1 goal linked to scheduled/docume nted intervention 1 goal intervention scheduled/documen monalisa in this visit Care Coordination Disciplines: Residential Management and coordination of patient care 12/19/2018 Active 1 goal linked to scheduled/docume nted intervention 2 goal interventions scheduled/documen monalisa in this visit Homebound Status Disciplines: Residential Patient meets requirements of homebound status as evidenced by 02/1412/19/2018 Active 1 goal linked to scheduled/docume nted intervention 1 problem intervention scheduled/documen monalisa in this visit A Plan for Next Visit Disciplines: Residential Plan for next visit 12/19/2018 Active 1 goal linked to scheduled/docume nted intervention 1 goal intervention scheduled/documen monalisa in this visit Home Safety Disciplines: Residential Management and evaluation of patient's home environment 12/19/2018 Active 1 goal linked to scheduled/docume nted intervention 3 goal interventions scheduled/documen monalisa in this visit Medications Disciplines: Residential Management of home medications 12/19/2018 Active 1 goal linked to scheduled/docume nted intervention 3 goal interventions scheduled/documen monalisa in this visit Blood Glucose Monitoring Disciplines: Residential Skilled assessment and evaluation of blood glucose monitoring 12/19/2018 Active 1 goal linked to scheduled/docume nted intervention 2 goal interventions scheduled/documen monalisa in this visit Management and Evaluation of the Care Plan Disciplines: Residential SN for management and evaluation of skilled services 12/19/2018 Active 1 goal linked to scheduled/docume nted intervention 1 goal intervention scheduled/documen monalisa in this visit Home Health Aide Supervisory Visit Disciplines: Residential Supervision of HH Aide, DISPATCHER MOTOR VEHICLE or NICHOLS 12/19/2018 Active 1 goal linked to scheduled/docume nted intervention 1 goal intervention scheduled/documen monalisa in this visit Nutritional concerns Disciplines: Residential Inadequate/imbala nced nutritional concerns 12/19/2018 Active 1 goal linked to scheduled/docume nted intervention 1 goal intervention scheduled/documen monalisa in this visit Pulse Oximetry Disciplines: Residential Skilled assessment and monitoring of O2 saturations. 12/19/2018 Active 1 goal linked to scheduled/docume nted intervention 1 goal intervention scheduled/documen monalisa in this visit Wound Care Disciplines: Residential Alteration in skin integrity 12/19/2018 Active 1 [...] regimen by 02/14/19. Medications Not Progressing No Patient able to state meds but had not taken any medications yet this morning. Skilled nurse set up her mediplanner so she will be able to take her meds and skilled nurse can assess if meds are being taken as ordered SN Blood Glucose Monitoring Description: Patient to have blood sugars within normal limits Blood Glucose Monitoring Not Progressing No No glucometer to check blood sugars. Left note for granddaughter to get her glucometer and start checking her blood sugar daily before meals. SN Management and Evaluation of the Care Plan Description: Skilled services to see patient as ordered Management and Evaluation of the Care Plan Met This Shift No SN COLLAR TURNER OPERATOR Supervision Description: RN to supervise Home Health Aide at least every 14 days through 02/14/19. Home Health Aide Supervisory Visit Met This Shift No Nutritional Status for Optimal Health Description: Patient will demonstrate adequate nutritional status as evidenced by stabilization of weight and intake of required nutrients for optimal health and functioning by 02/14/19. Nutritional concerns Not Progressing No Patient ate fried chicken for breakfast the granddaughter heated in the microwave and gave to her in the bag. Patient requested a plate so granddaughter gave her a bowl to place her chicken in. She required water while she was eating but none was given. Skilled nurse set up for meal with a bottle of water SN Pulse Oximetry Description: Pulse oximetry to be monitored as needed through episode of care for shortness of breath or dyspnea. Pulse Oximetry Met This Shift No Identify Signs/Symptoms of Infection Description: patient and caregiver will demonstrate the ability to identify the signs/symptoms of infection by 02/14/19. Wound Care Not Progressing No No caregiaver present the granddaughter let me in the door and she went out the back door. The patient is unable to do her own dressings to lower extremities and dressings were not changed since last skilled nurse visit on 12/21/18 Interventions Intervention Associated Problem/Goal Status Variance Visit [...] . Problem:Home Health Aide Supervisory Visit Goal:SN COLLAR TURNER OPERATOR Supervision Completed Instruct diet Description: Instruct on [...] Completed documented in this encounter Care Teams A&P Mechanic Relationship Specialty Start Date End Date Cecilio Aldrich MD [address] [place] [address] PCP - General QUENCHING MACHINE OPERATOR 12/10/18 02/09/19 Damon Swanson MD [address] [place] [address] INTERNAL MEDICINE 12/10/18 documented as of this encounter
--- OUTSIDE RECORDS SUMMARY | 2024-02-26 21:26 | XMS_ITS | Encounter Summary ---
Author Organization [facility] Address [address] [place] [address]. [place], [place] [address] [place] [address] Care Team Providers Care Electron Beam Operator Name Role Phone Cecilio Aldrich MD Primary Care Provider [phone] Damon Swanson MD Unavailable [phone] Encounter Details Date Type Department Care Team (Latest Contact Info) Description 12/28/2018 11:30 AM CDT Home Care Visit [address] [place] [address] [place] [address] Daniela Harrington, OPTOMECHANICAL ENGINEER OPTOMECHANICAL ENGINEER HH/HOSPICE TELEPHONE ENCOUNTER/VISIT Social History Tobacco Use [...] Description Start Date Status Goals Interve ntions OPTOMECHANICAL ENGINEER Community Resource Planning Disciplines: Medical Social Work Assist with community resources 12/26/2018 Active 1 goal linked to scheduled/documen monalisa intervention 1 goal intervention scheduled/document ed in this visit Goals Goal Associated Problem Outcome Goal Met? Visit Notes OPTOMECHANICAL ENGINEER Community Resource Planning Description: Patient will move to assisted living/nursing facility of choice for so that level of care needs are better met by 01/22/19. OPTOMECHANICAL ENGINEER Community Resource Planning No Interventions Intervention Associated Problem/Goal Status Variance Visit Notes OPTOMECHANICAL ENGINEER community resource planning Description: OPTOMECHANICAL ENGINEER to assist with community resource planning related to more supportive living arrangement. Patient reports that she lives with her granddaughter, but she does not provide any assistance other than letting patient sleep on the couch and occasionally provides some food for patient. Patient reports that she is interested in moving to an assisted living/prison. Patient reports preference for [facility] in [place] and [facility] for assisted living and did not have a preference for nursing facility. OPTOMECHANICAL ENGINEER spoke with Sylvia Reynaga RN case manager who confirms that due to patient's inability to transfer independently, patient would be more appropriate for prison care over [facility] care. OPTOMECHANICAL ENGINEER to contact area nursing facilities for bed availability to obtain fax number to insure patient's information if forwarded to those facilities for admission review. Problem:OPTOMECHANICAL ENGINEER Community Resource Planning Goal:OPTOMECHANICAL ENGINEER Community Resource Planning Scheduled documented in this encounter Care Teams Electron Beam Operator Relationship Specialty Start Date End Date Cecilio Aldrich MD [address] [place] [address] PCP - General BODY ART TECHNICIAN 12/10/18 02/09/19 Damon Swanson MD [address] [place] [address] INTERNAL MEDICINE 12/10/18 documented as of this encounter
--- OUTSIDE RECORDS SUMMARY | 2024-02-26 21:26 | XMS_ITS | Encounter Summary ---
Author Organization [facility] Address [address] [place] [address]. [place], [place] [address] [place] [address] Care Team Providers Care Rag Production Worker Name Role Phone Cecilio Aldrich MD Primary Care Provider [phone] Damon Swanson MD Unavailable [phone] Encounter Details Date Type Department Care Team (Latest Contact Info) Description 12/27/2018 8:45 AM CDT Home Care Visit [address] [place] [address] Daniela Harrington, BUILDING DISMANTLER BUILDING DISMANTLER HH/HOSPICE TELEPHONE ENCOUNTER/VISIT Social History Tobacco Use [...] Description Start Date Status Goals Interve ntions BUILDING DISMANTLER Community Resource Planning Disciplines: Medical Social Work Assist with community resources 12/26/2018 Active 1 goal linked to scheduled/documen monalisa intervention 1 goal intervention scheduled/document ed in this visit Goals Goal Associated Problem Outcome Goal Met? Visit Notes BUILDING DISMANTLER Community Resource Planning Description: Patient will move to assisted living/nursing facility of choice for so that level of care needs are better met by 01/22/19. BUILDING DISMANTLER Community Resource Planning No Interventions Intervention Associated Problem/Goal Status Variance Visit Notes BUILDING DISMANTLER community resource planning Description: BUILDING DISMANTLER to assist with community resource planning related to more supportive living arrangement. Patient reports that she lives with her granddaughter, but she does not provide any assistance other than letting patient sleep on the couch and occasionally provides some food for patient. Patient reports that she is interested in moving to an assisted living/alf. Patient reports preference for [facility] in [place] and [facility] for assisted living and did not have a preference for nursing facility. BUILDING DISMANTLER spoke with Sylvia Reynaga RN case manager who confirms that due to patient's inability to transfer independently, patient would be more appropriate for alf care over [facility] care. BUILDING DISMANTLER to contact area nursing facilities for bed availability to obtain fax number to insure patient's information if forwarded to those facilities for admission review. Problem:BUILDING DISMANTLER Community Resource Planning Goal:BUILDING DISMANTLER Community Resource Planning Scheduled documented in this encounter Care Teams Rag Production Worker Relationship Specialty Start Date End Date Cecilio Aldrich MD [address] [place] [address] PCP - General HOT DOG VENDOR 12/10/18 02/09/19 Damon Swanson MD [address] [place] [address] INTERNAL MEDICINE 12/10/18 documented as of this encounter
--- OUTSIDE RECORDS SUMMARY | 2024-02-26 21:26 | XMS_ITS | Encounter Summary ---
Author Organization [facility] Address [address] [place] [address]. [place] [address] [place] [address] Care Team Providers Care Maintainer Central Office Name Role Phone Cecilio Aldrich MD Primary Care Provider Damon Swanson MD Unavailable [phone] Encounter Details Date Type Department Care Team (Latest Contact Info) Description 12/28/2018 5:00 PM CDT - 12/28/2018 11:59 PM CDT Hospital Encounter [facility] [address] [facility] [place] [address] Saranya Pichardo NP Discharge Disposition: Home or [...] inflammation of bilateral lower extremity (CODE) (CMS/HCC HHS/HCC),Diabetic leg ulcer (CMS/HCC HHS/HCC) Take 1 capsule (300 mg total) [...] Procedure Name Priority Date/Time Associated Diagnosis Comments XR TIBIA+FIBULA LT 2V Routine 12/28/2018 5:17 PM CDT Chronic venous hypertension (idiopathic) with ulcer and inflammation of bilateral lower extremity (CODE) (CMS/HCC HHS/HCC) Diabetic leg ulcer (CMS/HCC HHS/HCC) documented in this encounter Results * XR TIBIA+FIBULA LT 2V (12/28/2018 5:17 [...] and inflammation of bilateral lower extremity (CODE) ([facility] HHS/HCC) Diabetic leg ulcer ([facility] HHS/HCC) Type II or unspecified type diabetes mellitus with other specified manifestations, not stated as uncontrolled documented in this encounter Care Teams Maintainer Central Office Relationship Specialty Start Date End Date Cecilio Aldrich MD [address] [address] PCP - General BREAD SLICER MACHINE 12/10/18 02/09/19 Damon Swanson MD [address] [address] INTERNAL MEDICINE 12/10/18 documented as of this encounter
--- OUTSIDE RECORDS SUMMARY | 2024-02-26 21:26 | XMS_ITS | Encounter Summary ---
Author Organization [facility] Address [address] [place] [address]. [place] [address] [place] [address] Care Team Providers Care Radiology Equipment Servicer Name Role Phone Cecilio Aldrich MD Primary Care Provider [phone] Damon Swanson MD Unavailable [phone] Encounter Details Date Type Department Care Team (Late st Contact Info) Description 01/11/2019 Home Care Visit [facility] Home Care [address] [place] [address] Angeline Mejia, OT [address] [place] [address] CASE COMMUNICATION Social History Tobacco Use Types [...] on filedocumented in this encounter Care Teams Radiology Equipment Servicer Relationship Specialty Start Date End Date Cecilio Aldrich MD [address] [place] [address] PCP - General CENTER PUNCH OPERATOR 12/10/18 02/09/19 Damon Swanson MD [address] [place] [address] INTERNAL MEDICINE 12/10/18 documented as of this encounter
--- OUTSIDE RECORDS SUMMARY | 2024-02-26 21:26 | XMS_ITS | Encounter Summary ---
Author Organization [facility] Address [address] [place] [address]. [place] [address] [place] [address] Care Team Providers Care Physical Ther Name Role Phone Cecilio Aldrich MD Primary Care Provider [phone] Damon Swanson MD Unavailable [phone] Encounter Details Date Type Department Care Team (Late st Contact Info) Description 01/08/2019 2:15 PM CDT Office Visit [facility] [address] [place] [address] Babar Sullivan MD Social History Tobacco Use [...] on filedocumented in this encounter Care Teams Physical Ther Relationship Specialty Start Date End Date Cecilio Aldrich MD [address] [place] [address] PCP - General DIRECTOR LEARNING AND DEVELOPMENT 12/10/18 02/09/19 Damon Swanson MD [address] [place] [address] INTERNAL MEDICINE 12/10/18 documented as of this encounter
--- OUTSIDE RECORDS SUMMARY | 2024-02-26 21:26 | XMS_ITS | Encounter Summary ---
Author Organization [facility] Address [address] [place] [address]. [place] [address] [place] [address] Care Team Providers Care Operating Room Manager Name Role Phone Cecilio Aldrich MD Primary Care Provider [phone] Damon Swanson MD Unavailable [phone] Reason for Referral * Imaging (Routine) - Closed Specialty Diagnoses / Procedures Referred By Contac t Referred To Contact RADIOLOGY Diagnoses Chronic venous hypertension (idiopathic) with ulcer and inflammation of bilateral lower extremity (CODE) (CMS/HCC HHS/HCC) Procedures USV VENOUS REFLUX LOW BRENDON Babar Sullivan MD Referral ID Status Reason Start Date Expiration Date Visits Re quested Visits Authorized [id number] Closed 12/20/2018 01/20/2020 1 1 * Imaging (Routine) - Closed Specialty Diagnoses / Procedures Referred By Contac t Referred To Contact RADIOLOGY Diagnoses Peripheral arterial disease ([facility]/HCC) Procedures USV ART REST W ZAYNAB LOW EXT Babar Sullivan MD Referral ID Status Reason Start Date Expiration Date Visits Re quested Visits Authorized [id number] Closed 12/20/2018 01/20/2020 1 1 Reason for Visit * Imaging (Routine) - Closed Specialty Diagnoses / Procedures Referred By Contac t Referred To Contact RADIOLOGY Diagnoses Peripheral arterial disease ([facility]/HCC) Procedures USV ART REST W ZAYNAB LOW EXT Babar Sullivan MD Referral ID Status Reason Start Date Expiration Date Visits Re quested Visits Authorized [id number] Closed 12/20/2018 01/20/2020 1 1 Encounter Details Date Type Department Care Team (Latest Contact Info) Description 01/08/2019 9:00 AM CDT - 01/08/2019 9:56 AM CDT Hospital Encounter [facility] [address] [place] [address] Babar Sullivan MD Discharge Disposition: Home or [...] and inflammation of bilateral lower extremity (CODE) ([facility] HHS/HCC),Diabetic leg ulcer ([facility] HHS/HCC) Take 1 capsule (300 mg total) [...] Procedure Name Priority Date/Time Associated Diagnosis Comments USV VENOUS REFLUX LOW BRENDON Routine 01/08/2019 11:44 AM CDT Chronic venous hypertension (idiopathic) with ulcer and inflammation of bilateral lower extremity (CODE) (CMS/HCC HHS/HCC) USV ART REST W ZAYNAB LOW EXT Routine 01/08/2019 11:44 AM CDT Peripheral arterial disease documented in this encounter Results * USV VENOUS REFLUX LOW BRENDON (01/08/2019 11:44 AM CDT) Anatomical Region Laterality Modality Extremity Vascular Ultraso und 01/08/2019 10:4 0 AM CDT Narrative 02/06/2024 11:51 AM [facility] ?VENOUS DUPLEX IMAGING ?BILATERAL LOWER EXTREMITY ? VASCULAR LAB Pat.Name: ??IRIS GIL ? Pat.ID: ?[id number] ? St.Date: ?? 01/08/2019 ?Refer.: ??Cecilio Aldrich ? Exam Time: 10:40:00 AM [...] 8 AM CDT Narrative 01/15/2019 10:32 PM [facility] ?ARTERIAL DOPPLER - ZAYNAB ?BILATERAL LOWER EXTREMITY ? VASCULAR LAB Pat.Name: ??IRIS GIL ? Pat.ID: ?[id number] ? St.Date: ?? 01/08/2019 ?Refer.: ??Cecilio Aldrich ? Exam Time: 11:08:00 AM [...] ?? Right Anterior ?? 16.7 cm/s ? BUHR MILL OPERATOR ?? Right BUHR MILL OPERATOR Right ?? 111 cm/s ? Left BUHR MILL OPERATOR Left V ? 0 ? Left BUHR MILL OPERATOR Left P ?? 116 cm/s ? [...] ?? GreatToe P ?90 mmHg ? Right ZAYNAB PT ?? ZAYNAB PT ? 0.725 ? [...] ZAYNAB BILATERAL LOWER EXTREMITY VASCULAR LAB Pat.Name: IRIS GIL Pat.ID: [id number] .Date: 01/08/2019 Refer.MD: Cecilio Aldrich Exam Time: 11:08:00 AM Study Type:FRANCISCO VS Arterial Doppler Legs BRENDON Age: 11 1955,63Y Sex: FEMALE Sonogrphr: TAHI Benjamin Pat. Stat.:Outpatient History / Clinical: PAD; [...] DOPPLER Anterior Tibial Right Anterior 16.7 cm/s BUHR MILL OPERATOR Right BUHR MILL OPERATOR Right 111 cm/s Left BUHR MILL OPERATOR Left V 0 Left BUHR MILL OPERATOR Left P 116 cm/s Peroneal Right [...] TBI 0.527 Signed 01/15/2019 10:32 PM Khalif Dang M.D. Babar Sullivan MD VAS Final Result documented in this encounter Visit Diagnoses Diagnosis Peripheral arterial disease (CMS/HCC) Peripheral vascular disease, unspecified Chronic venous hypertension (idiopathic) with ulcer and inflammation of bilateral lower extremity (CODE) (CMS/HCC HHS/HCC) documented in this encounter Care Teams Operating Room Manager Relationship Specialty Start Date End Date Cecilio Aldrich MD [address] [place] [address] PCP - General SPLITTER HEAD 12/10/18 02/09/19 Damon Swanson MD [address] [place] [address] INTERNAL MEDICINE 12/10/18 documented as of this encounter
--- OUTSIDE RECORDS SUMMARY | 2024-02-26 21:26 | XMS_ITS | Encounter Summary ---
Author Organization [facility] Address [address] [place] [address]. [place], [place] [address] [place] [address] Care Team Providers Care Mold Yarn Supervisor Name Role Phone Cecilio Aldrich MD Primary Care Provider [phone] Damon Swanson MD Unavailable [phone] Encounter Details Date Type Department Care Team (Latest Contact Info) Description 01/01/2019 4:30 PM CDT Home Care Visit [address] [place] [address] [place] [address] Daniela Harrington, OXYGEN THERAPY TEACHER OXYGEN THERAPY TEACHER HH/HOSPICE TELEPHONE ENCOUNTER/VISIT Social History Tobacco Use [...] Description Start Date Status Goals Interve ntions OXYGEN THERAPY TEACHER Community Resource Planning Disciplines: Medical Social Work Assist with community resources 12/26/2018 Active 1 goal linked to scheduled/documen monalisa intervention 1 goal intervention scheduled/document ed in this visit Goals Goal Associated Problem Outcome Goal Met? Visit Notes OXYGEN THERAPY TEACHER Community Resource Planning Description: Patient will move to assisted living/nursing facility of choice for so that level of care needs are better met by 01/22/19. OXYGEN THERAPY TEACHER Community Resource Planning No Interventions Intervention Associated Problem/Goal Status Variance Visit Notes OXYGEN THERAPY TEACHER community resource planning Description: OXYGEN THERAPY TEACHER to assist with community resource planning related to more supportive living arrangement. Patient reports that she lives with her granddaughter, but she does not provide any assistance other than letting patient sleep on the couch and occasionally provides some food for patient. Patient reports that she is interested in moving to an assisted living/[facility]. Patient reports preference for [facility] in [place] and [facility] for assisted living and did not have a preference for nursing facility. OXYGEN THERAPY TEACHER spoke with Sylvia Reynaga RN case manager who confirms that due to patient's inability to transfer independently, patient would be more appropriate for [facility] care over NURSING HOME care. OXYGEN THERAPY TEACHER to contact area nursing facilities for bed availability to obtain fax number to insure patient's information if forwarded to those facilities for admission review. Problem:OXYGEN THERAPY TEACHER Community Resource Planning Goal:OXYGEN THERAPY TEACHER Community Resource Planning Scheduled documented in this encounter Care Teams Mold Yarn Supervisor Relationship Specialty Start Date End Date Cecilio Aldrich MD [address] [place] [address] PCP - General RETAIL SALESMAN 12/10/18 02/09/19 Damon Swanson MD [address] [place] [address] INTERNAL MEDICINE 12/10/18 documented as of this encounter
--- OUTSIDE RECORDS SUMMARY | 2024-02-26 21:26 | XMS_ITS | Encounter Summary ---
Author Organization [facility] Address [address] [place] [address]. [place] [address] [place] [address] Care Team Providers Care Prototype Machine Operator Name Role Phone Cecilio Aldrich MD Primary Care Provider [phone] Damon Swanson MD Unavailable [phone] Encounter Details Date Type Department Care Team (Latest Contact Info) Description 01/09/2019 12:00 PM CDT Home Care Visit [address] [place] [address] Daniela Harrington, DIGGING MACHINE OPERATOR TELEPHONE ENCOUNTER Social History Tobacco Use Types [...] on filedocumented in this encounter Care Teams Prototype Machine Operator Relationship Specialty Start Date End Date Cecilio Aldrich MD [address] [place] [address] PCP - General ELECTRONIC PREPRESS OPERATOR 9/30/19 11/30/19 Damon Swanson MD [address] [place] [address] INTERNAL MEDICINE 12/10/18 documented as of this encounter
--- OUTSIDE RECORDS SUMMARY | 2024-02-26 21:26 | XMS_ITS | Encounter Summary ---
Author Organization [facility] Address [address] [place] [address]. [place] [address] [place] [address] Care Team Providers Care Sand Operator Name Role Phone Cecilio Aldrich MD Primary Care Provider [phone] Damon Swanson MD Unavailable [phone] Encounter Details Date Type Department Care Team (Late st Contact Info) Description 12/24/2018 10:30 AM CDT Home Care Visit [address] [place] [address] Tamra Alfaro, [facility] [phone] (Work) PT HOME VISIT Social History Tobacco Use [...] Time Taken Comments Blood Pressure 140/80 12/24/2018 10:39 AM CDT Pulse 76 12/24/2018 10:39 AM CDT Temperature 35.8 ??C (96.4 ??F) 12/24/2018 10:39 AM C DT Respiratory Rate 18 12/24/2018 10:39 AM CDT Oxygen Saturation 97% 12/24/2018 10:39 AM CDT Inhaled Oxygen Concentration - - [...] or concerns reported to supervising therapist, case work aide, and/or provider. Therapies Vitals Met This Shift [...] Problem:Care Coordination Goal:Coordination of Care/Interpretive Services Completed Vernessa agrees to continue to daily exercises to increase lower extremity strength. Plan for Next Visit Description: Next visit plan summation Problem:A Plan for Next Visit Goal:Provide Continuity of Care Completed Vernessa verbalized understanding of next visit on Monday12/26/18. Review Medications Description: Clinician to review medications with patient/caregiver each visit and report any changes to case work aide and/or supervising PT Problem:Therapies Medications Goal:Therapies - Understanding of Medications - Physical Therapy Completed No changes in medication reports Vernessa today. Instruct Home Safety Description: Instruct patient on strategies/modificatio ns to home environment. Problem:Home Safety Goal:Remain Safe in Home Completed Therapist reviewed home safety strategies, and to watch out for rug over threshold when trying to wheel walker over it as to avoid a possible fall. Therapies - Vitals Description: PT , case work aide, and/or physician to be contacted if pulse ox is consistently below 88%, temp greater than 100.5, systolic BP greater than 180 or less than 90 and diastolic BP greater than 90 or less than 50 and respirations less than 12 or greater than 24 Problem:Therapies Vitals Goal:Physical Therapy - Vital Signs Completed Met this shift, no significant changes today. PT gait training Description: Evaluate and instruct patient in gait training using wheeled walker. Problem:PT Gait Training Goal:PT Gait Training Completed Iris walked from couch to bathroom and then again from couch to kitchen with front wheeled walker with contact guard assist. Therapies - Transfer Training Description: Evaluate and instruct patient in safe transfers using appropriate body mechanics and necessary equipment to perform safe transfers. Problem:Therapies Transfer Training Goal:Physical Therapy - Transfer Training Completed Therapist instructed Iris on safe transfers when getting up and sitting down onto couch/toilet. Iris kept one hand on her walker with most transfers, and therapist encouraged her to reach back and place her hands down onto the surface where she is sitting onto instead of just falling backwards. Therapies Balance Description: Assess balance and perform balance activities to decrease risk of falls Problem:PT Therapeutic Exercise Goal:PT Therapeutic Exercise Completed Iris declined balance exercises and reports her feet are hurting worse, but will feel better when she can go back to sleep. Therapies - Therapeutic Exercise Description: HEP for lower extremity strengthening to assist with transfers and ambulation. Problem:PT Therapeutic Exercise Goal:PT Therapeutic Exercise Completed Iris completed bilateral lower extremity exercises in seated position with 15 reps of ankle pumps, long arc quads, hip abduction/adduction, and marching. Iris states she does complete her exercises daily. documented in this encounter Care Teams Sand Operator Relationship Specialty Start Date End Date Cecilio Aldrich MD [address] [place] [address] PCP - General PEDIATRIC ONCOLOGIST 12/10/18 02/09/19 Damon Swanson MD [address] [place] [address] INTERNAL MEDICINE 12/10/18 documented as of this encounter
--- OUTSIDE RECORDS SUMMARY | 2024-02-26 21:27 | XMS_ITS | Encounter Summary ---
Author Organization [facility] Address [address] [place] [address]. [place] [address] [place] [address] Care Team Providers Care Medical Records Assistant Name Role Phone Zeke Puente MD Primary Care Provider [phone] Chris Tapia MD Primary Care Provider [phone] Encounter Details Date Type Department Care Team (Late st Contact Info) Description 02/10/2009 Abstract [facility] [place] [address] Bess Gonzalez MD [address] [place] [address] [address] Social History Tobacco Use Types Packs/Day Years [...] on filedocumented in this encounter Care Teams Medical Records Assistant Relationship Specialty Start Date End Date Zeke Puente MD [address] [place] [address] PCP - General 06/13/16 12/09/18 Chris Tapia MD [address] [place] [address] PCP - General 03/23/10 06/12/16 documented as of this encounter
--- OUTSIDE RECORDS SUMMARY | 2024-02-26 21:27 | XMS_ITS | Encounter Summary ---
Author Organization [facility] Address [address] [place] [address]. [place] [address] [place] [address] Care Team Providers Care Automobile Brake Bonder Name Role Phone Zeke Puente MD Primary Care Provider [phone] Chris Tapia MD Primary Care Provider [phone] Encounter Details Date Type Department Care Team (Late st Contact Info) Description 03/23/2010 Emergency [facility] Emergency [place] [address] Liya Michele MD Social History Tobacco Use Types Packs/Day [...] as of this encounter Visit Diagnoses Diagnosis Acute bronchitis documented in this encounter Care Teams Automobile Brake Bonder Relationship Specialty Start Date End Date Zeke Puente MD [address] [place] [address] PCP - General 06/13/16 12/09/18 Chris Tapia MD [address] [place] [address] PCP - General 03/23/10 06/12/16 documented as of this encounter
--- OUTSIDE RECORDS SUMMARY | 2024-02-26 21:35 | XMS_ITS | Clinical Summary ---
Author Organization [facility] Address [address] [place] [address] Phone Care Team Providers Care Disability Attorney Name Role Phone Damon SwansonTesha DO Unavailable [phone] Zeke Puente MD Primary Care Provider [phone] Sarah Baldwin MD, Karl Romero Unavailable Arley Peña MD Unavailable [phone] Allergies Active Allergy Reactions Criticality Noted Date Comments Codeine Phosphate Nausea & Vomiting Low 10/08/2012 Medications amLODIPine (NORVASC) 10 mg tablet Take 1 tablet (10 mg total) by mouth daily Active atorvastatin (LIPITOR) 40 mg tablet Take 1 tablet (40 mg total) by mouth daily Active levothyroxine (SYNTHROID) 100 mcg tablet Take 1 tablet (100 mcg total) 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 before 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 30 tablet 1 1 Active Jardiance 10 mg tablet Take 1 tablet (10 mg total) by mouth daily 3 Active furosemide (LASIX) 40 mg tablet Take 1 tablet (40 mg total) by mouth daily 3 Active omeprazole (PriLOSEC) 20 mg capsule Take 1 capsule (20 mg total) by mouth daily 3 Active potassium chloride ER 10 mEq CR capsule Take 1 tablet/capsule (10 mEq total) by mouth daily 3 Active NovoLOG 100 unit/mL vial for injection 3 Active Entresto 24-26 mg tablet Take 1 tablet by mouth 2 (two) times a day 3 Active gabapentin (NEURONTIN) 300 mg capsule Take 1 capsule (300 mg total) by mouth 3 (three) times a day 3 Active oxyCODONE (ROXICODONE) 5 mg immediate release tabletIndicatio ns:Pain Take 1 tablet (5 mg total) by mouth every 4 (four) hours as needed for pain for up to 12 doses 12 tablet 3 Active Active Problems Problem Noted Date Diagnosed Date Hypoglycemia 06/25/2022 Gastrointestinal hemorrhage 06/16/2020 Overview (06/21/2020): Added automatically from request for surgery [id number] Sepsis 11/20/2019 Acute hematogenous osteomyelitis of right foot 0 11/20/2019 PVD (peripheral vascular disease) 11/20/2019 Anemia 11/20/2019 COVID-19 11/20/2019 Hypothyroidism 11/20/2019 Hyperlipidemia 11/20/2019 Pressure injury of sacral region, stage 4 2019 Moderate malnutrition (CMS/HCC) 11/07/2019 Malignant neoplasm of upper- 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, estrogen receptor negative 11/13/2017 Dementia Diabetes mellitus Hypertension Surgical History Surgery Date Site/Laterality Comments HERNIA REPAIR Medical History Medical History Date Comments Diabetes mellitus (HCC) Hypertension Dementia (HCC) Family History Medical History Relation Name Comments Diabetes Brother No Known Problems Daughter Heart disease Father Diabetes Mother No Known Problems Sister No Known Problems Son 1 No Known Problems Son 2 No Known Problems Son 3 Relation Name Status Comments Brother Daughter Alive Father Mother Sister Alive Son 1 Alive Son 2 Alive Son 3 Alive Social History Tobacco Use Types Packs/Day Years Used Date Smoking Tobacco: Never Smokeless Tobacco: Never Alcohol Use Standard Drinks/Week Comments No 0 (1 standard drink = 0.6 oz pur e alcohol) Social Connection and Isolation Panel [NHANES] A nswer Date Recorded In a typical week, how many times do you talk on the phone with family, friends, or neighbors? Three times a week 06/27/2022 How often do you get togethe r with friends or relatives? Once a week 06/27/2022 How often do you attend chur ch or rastafarian services? Never 06/27/2022 Do you belong to any clubs o r organizations such as episcopalian groups, unions, fraternal or athletic groups, or school groups? No 06/27/2022 How often do you attend meet ings of the clubs or organizations you belong to? Never 06/27/2022 Are you , , di vorced, , never , or living with a partner? Never 06/27/2022 AUDIT-C Answer Date Recorded Q1: How often do you have a drink containing alc ohol? Never 06/19/2020 Average Number of Drinks Not on file 021 Frequency of Binge Drinking Not on file 11/2020 Overall Financial Resource Strain (CARDIA) Answe r Date Recorded How hard is it for you to pa y for the very basics like food, housing, medical care, and heating? Not hard at all 06/27/2022 PHQ-2 Answer Date Recorded PHQ-2 Score 0 11/03/2018 PRAPARE - Transportation Answer Date Re corded In the past 12 months, has l ack of transportation kept you from medical appointments or from getting medications? No 06/11 In the past 12 months, has l ack of transportation kept you from meetings, work, or from getting things needed for daily living? No 06/27/2022 Personal Safety Answer Date Recorded Have you ever been in or are you currently in a harmful physical or emotional relationship or is someone making you feel afraid or unsafe? 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 Gender Identity Not on file Sexual Orientation Not on file Obstetrics History Last Filed Vital Signs Vital Sign Reading Time Taken Comments Blood Pressure 199/84 09/02/2023 8:45 PM CDT Pulse 76 09/02/2023 8:45 PM CDT Temperature 36.1 ??C (96.9 ??F) 09/02/2023 10:18 AM C DT Respiratory Rate 17 09/02/2023 3:20 PM CDT Oxygen Saturation 99% 09/02/2023 8:45 PM CDT Inhaled Oxygen Concentration - - Weight 72.6 kg (160 lb) 09/02/2023 10:19 AM CDT Height 94 cm (3' 1 ) 06/27/2022 5:02 PM CDT pt b il AKA Body Mass Index 82.17 06/27/2022 5:02 PM CDT Plan of Treatment Health Maintenance Due Date Last Done Comments Albumin Creatinine Ratio, Urine 1955 Colon Cancer Screening-Colonoscopy 1955 Hepatitis C Screening 1955 Osteoporosis Screening-Bone Density Scan 1955 Dilated Eye Exam 1955 Foot Exam 1955 Pneumococcal vaccine 65+ (1 of 2 - PCV) 1961 Hepatitis B Screening 1973 Zoster Vaccine (2 of 3) 05/16/2017 03/21/19 18, 01/24/2017, 01/02/2017, Additional history exists Breast Cancer Screening-Mammogram 12/26/2017 12/26/2016, 12/18/2015, 11/07/2014, Additional history exists Depression Screening 06/22/2019 06/21/2018 Well Visit 65+ 01/15/2020 Lipid Panel 06/28/2020 06/29/2019 Hemoglobin A1C 12/18/2020 06/18/2020, 10/12, 06/21/2018, Additional history exists Fall Risk Assessment 06/28/2023 06/27/2022, 06/22/19 19 Influenza Vaccine (#1) 2023 8, 01/24/2017, 01/02/2017, Additional history exists eGFR 09/01/2024 09/02/2023, 06/11, 06/27/2022, Additional history exists DTaP/Tdap/Td Vaccine (2 - Td or Tdap) 06/27/2029 06/28/2019 Procedures Procedure Name Priority Date/Time Associated Diagnosis Comments EGFR STAT 09/02/2023 12:08 PM CDT HEMOGLOBIN A1C Routine 06/18/2020 5:43 AM CDT SCREENING MAMMOGRAM BILATERAL W ZAC Routine 12/26/2016 10:50 AM CDT from Last 3 Months or Most Recently Relevant to Health Maintenance Results * eGFR (09/02/2023 12:08 PM CDT) eGFR 80 >=60 mL/min/1. 73 m2 Comment: Interpretive Data Reference Interval Normal ?>/= 90 mL/min/1.73m2 Mildly decreased* ? 60 - 89 mL/min/1.73m2 Mildly to moderately decreased ?45 - 59 mL/min/1.73m2 Moderately to severely decreased ??30 - 44 mL/min/1.73m2 Severely decreased ?15 - 29 mL/min/1.73m2 Kidney Failure ?< 15 ??mL/min/1.73m2 *Relative to young adult level Estimated glomerular filtration rate is determined by the 2020 CKD-EPI equation recommended by the National Kidney Foundation (A Unifying Approach to GFR Estimation: Recommendations of the NKF-ASK Task Force on Reassessing the Inclusion of Race in Diagnosing Kidney Disease, JASN 2020). The CKD-EPI equation should not be used for patients with unstable renal function and has not been validated in children and those over 70. Current interpretive data was last reviewed 2021. Blood 09/02/2023 12:0 8 PM CDT 09/02/2023 12:21 PM CDT us Lakisha Díaz MD LAB BLOOD ORDERABLE S Final Result [facility] ([place]) [address] [facility] Department [place] [address] * (ABNORMAL) Hemoglobin A1c (06/18/2020 5:43 AM CDT) Hgb A1C 8.0(H) 4.0 - 5.6 % [facility] Estimated Average Glucose 183 mg/dL [facility] Comment: The ADA recommends reporting an estimated Average Glucose (eAG) with all Hemoglobin A1c results using the equation derived from a study of 507 normal and diabetic adults. ??Minority populations were underrepresented and children were not included. ?? (Diabetes Care 31:5330-7581, 2007). ??The eAG is not equivalent to a fasting glucose. Blood specimen (specimen) 06/18/2020 5:43 AM CDT 06/18/2020 6:23 AM CDT us Summer Anguiano MD LAB BLOOD ORDERABLES Final Result [facility] [address] [place] [address] * Screening Mammogram Bilateral W Zac (12/26/2016 10:50 AM CDT) Anatomical Region Laterality Modality Breast Bilateral Mammography 12/26/2016 10:5 0 AM CDT Impressions 12/26/2016 11:38 AM CDT BI-RAD 2 ??BENIGN There is no mammographic evidence of malignancy. A 1 year screening mammogram is recommended. ?? The patient has been or will be contacted. ?? The patient will be entered into a reminder system with a target due date of 1 year for her next screening exam. Electronically signed by: Edwar Deng M.D., md/:12/26/2016 11:34:53 ?? Inhalation Therapy Teacher: Layne Iniguez RT (R)(M), [facility] letter sent: Normal Exam ?? Reading location: [facility] BI-RADS: 2 Benign [EOD] Narrative 12/26/2016 11:38 AM CDT - MG BILATERAL DIGITAL SCREENING MAMMOGRAM 3D/2D WITH MEDIOLATERAL OBLIQUE CRANIOCAUDAL: 12/26/2016 The study was acquired using full field digital technology and interpreted from soft copy. ?? 2D digital mammographic views, as well as 3D digital tomosynthesis were performed in the CC and MLO projections. CLINICAL: Routine mammogram. Denies any problems today. ??Personal history of bilateral breast cancer with lumpectomies. No family history of breast cancer. COMPARISONS: Comparison is made to exams dated: ??12/18/2015 mammogram, 11/07/2014 mammogram, and 10/30/2013 mammogram - [facility]. ?? BREAST TISSUE: The tissue of both breasts is almost entirely fatty. ?? FINDINGS: Postoperative changes involving both breasts demonstrate no significant interval change. ??A round hyperdense mass is again seen within the upper outer right breast, posterior depth, most consistent with a benign postsurgical fluid collection (i.e. seroma). Bilateral breast skin thickening is again noted, compatible with postradiation change. There are benign-appearing bilateral breast calcifications. ??No suspicious mass, calcifications, or other concerning mammographic findings are noted within either breast. ??There has been no significant interval mammographic change involving either breast. Procedure Note Provider, MD Almita - 07/28/2020 - MG BILATERAL DIGITAL SCREENING MAMMOGRAM 3D/2D WITH MEDIOLATERAL OBLIQUE CRANIOCAUDAL: 12/26/2016 The study was acquired using full field digital technology and interpretedfrom soft copy. 2D digital mammographic views, as well as 3D digital tomosynthesis were performed in the CC and MLO projections. CLINICAL: Routine mammogram. Denies any problems today. Personal historyof bilateral breast cancer with lumpectomies. No family history of breastcancer. COMPARISONS: Comparison is made to exams dated: 12/18/2015 mammogram,11/07/2014 mammogram, and 10/30/2013 mammogram - [facility]. BREAST TISSUE: The tissue of both breasts is almost entirely fatty. FINDINGS: Postoperative changes involving both breasts demonstrate no significant interval change. A round hyperdense mass is again seen withinthe upper outer right breast, posterior depth, most consistent with a benign postsurgical fluid collection (i.e. seroma). Bilateral breast skinthickening is again noted, compatible with postradiation change. There are benign-appearing bilateral breast calcifications. No suspicious mass, calcifications, or other concerning mammographic findings are noted within either breast. There has been no significant interval mammographic change involving either breast. IMPRESSION: BI-RAD 2 BENIGN There is no mammographic evidence of malignancy. A 1 year screeningmammogram is recommended. The patient has been or will be contacted. The patient will be entered into a reminder system with a target due dateof 1 year for her next screening exam. Electronically signed by: Edwar Deng M.D., md/:12/26/2016 11:34:53 Inhalation Therapy Teacher: Layne Iniguez RT (R)(M), [facility] letter sent: Normal Exam Reading location: [facility] BI-RADS: 2 Benign [EOD] Damon Swanson DO IMG MAMMO PROCEDURES Final R esult from Last 3 Months or Most Recently Relevant to Health Maintenance Insurance MEDICARE [facility] MEDICARE MEDICARE [employer] Advance Directives For more information, please contact: [phone] Documents on File Type Date Recorded Patient Prawn Trawler Hand Expl anation ADVANCE DIRECTIVE 09/04/2023 2:51 PM POLST - Phys Order for PT Preferences ADVANCE DIRECTIVE 02/28/2019 12:00 AM [facility] OF ASSISTANT DRAFTER FINANCIAL/MEDICAL * Full Code (Latest Code Status on File) Date Activated Date Inactivated Comments 06/25/2022 11:03 PM 06/28/2022 10:18 PM * LIMITED - No CPR Date Activated Date Inactivated Comments 06/16/2020 9:29 PM 06/26/2020 8:29 PM * LIMITED - No CPR Date Activated Date Inactivated Comments 06/16/2020 7:02 PM 06/16/2020 9:29 PM Question Answer Comments Provide aggressive medical m anagement before a full cardiopulmonary arrest occurs. Use antibiotics, IV Fluids, and medical treatment unless specifically selected below: No intubation * Full Code Date Activated Date Inactivated Comments 11/07/2019 12:51 AM 11/20/2019 10:35 PM Care Teams Disability Attorney Relationship Specialty Start Date End Date Zeke Puente MD [address] [place] [address] PCP - General 12/02/18 Damon Swanson DO [address] [place] [address] Medical Oncologist/Air/Ocean Export Clerk Hematology and Oncology 10/25/17 Karl Smith Jr., MD [address] [place] [address] Surgeon General Surgery 11/07/19 Arley Peña MD [address] [place] [address] Surgeon General Surgery 06/26/20
--- OUTSIDE RECORDS SUMMARY | 2024-02-26 21:36 | XMS_ITS | Encounter Summary ---
Author Organization [facility] Address [address] [facility] [address] [place] [address] Care Team Providers Care Crystal Lapper Name Role Phone Damon Swanson DO Unavailable Zeke Puente MD Primary Care Provider Sarah Baldwin MD, Karl Romero Unavailable Arley Peña MD Unavailable [phone] Encounter Details Date Type Department Care Team (Late st Contact Info) Description 12/06/2021 Orders Only [facility] Cardiology [address] [place] [address] Bud Mustafa MD [address] [facility] [address] [facility] [address] [place], [place] [id number] Social History Tobacco Use Types Packs/Day Years Used Date Smoking Tobacco: Never Smokeless Tobacco: Never Alcohol Use Standard Drinks/Week Comments No 0 (1 standard drink = 0.6 oz pur e alcohol) Social Connection and Isolation Panel [NHANES] A nswer Date Recorded In a typical week, how many times do you talk on the phone with family, friends, or neighbors? Patient declined 06/17/2020 How often do you get togethe r with friends or relatives? Patient declined 06/17/2020 How often do you attend catholic or judaism serv ices? Patient declined 06/17/2020 Do you belong to any clubs o r organizations such as catholic groups, unions, fraternal or athletic groups, or school groups? Patient declined 06/17/2020 How often do you attend meet ings of the clubs or organizations you belong to? Patient declined 06/17/2020 Are you , , di vorced, , never , or living with a partner? Patient declined 06/17/2020 AUDIT-C Answer Date Recorded Q1: How often do you have a drink containing alc ohol? Never 06/19/2020 Average Number of Drinks Not on file Frequency of Binge Drinking Not on file 11/2020 Overall Financial Resource Strain (CARDIA) Answe r Date Recorded How hard is it for you to pa y for the very basics like food, housing, medical care, and heating? Patient declined 06/17/2020 PHQ-2 Answer Date Recorded PHQ-2 Score 0 11/03/2018 PRAPARE - Transportation Answer Date Re corded In the past 12 months, has l ack of transportation kept you from medical appointments or from getting medications? No 09/2020 In the past 12 months, has l ack of transportation kept you from meetings, work, or from getting things needed for daily living? 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 Gender Identity Not on file Sexual Orientation Not on file documented as of this encounter Plan of Treatment Not on file documented as of this encounter Procedures Procedure Name Priority Date/Time Associated Diagnosis Comments CARDIOLOGY DOCUMENT SCAN Routine 12/06/2021 documented in this encounter Results * Cardiology Document Scan (12/06/2021) Anatomical Region Laterality Modality Other us Bud Mustafa MD CV CARDIAC SERVICES PROC EDURES Final Result documented in this encounter Visit Diagnoses Not on filedocumented in this encounter Care Teams Crystal Lapper Relationship Specialty Start Date End Date Zeke Puente MD [address] [place] [address] PCP - General 12/02/18 Damon Swanson DO [address] [place] [address] Medical Oncologist/Hotel General Manager Hematology and Oncology 10/25/17 Karl Smith Jr., MD [address] [place] [id number] Surgeon General Surgery 11/07/19 Arley Peña MD [address] [place] [id number] Surgeon General Surgery 06/26/20 documented as of this encounter
--- OUTSIDE RECORDS SUMMARY | 2024-02-26 21:36 | XMS_ITS | Encounter Summary ---
Author Organization [facility] Address [address] [facility] [address] [place] [address] Care Team Providers Care Installation And Service Technician Name Role Phone Damon Swanson DO Unavailable [phone] Zeke Puente MD Primary Care Provider [phone] Sarah Baldwin MD, Karl Romero Unavailable Arley Peña MD Unavailable [phone] Encounter Details Date Type Department Care Team (Late st Contact Info) Description 12/07/2021 Orders Only [facility] Cardiology [address] [facility] [address] [place] [address] Beto Ortez MD [address] [address] Social History Tobacco Use Types Packs/Day Years [...] declined 06/17/2020 How often do you attend orthodox or congregation serv ices? 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 Gender Identity Not on file Sexual Orientation Not on file documented as of this encounter Plan of Treatment Not on file documented as of this encounter Procedures Procedure Name Priority Date/Time Associated Diagnosis Comments CARDIOLOGY DOCUMENT SCAN Routine 12/07/2021 documented in this encounter Results * Cardiology Document Scan (12/07/2021) Anatomical Region Laterality Modality Other [facility] Eliezer Ortez MD CV CARDIAC SERVICES PRO CEDURES Final Result documented in this encounter Visit Diagnoses Not on filedocumented in this encounter Care Teams Installation And Service Technician Relationship Specialty Start Date End Date Zeke Puente MD [address] [place] [address] PCP - General 12/02/18 Damon Swanson DO [address] [place] [address] Medical Oncologist/Project Development Engineer Hematology and Oncology 10/25/17 Karl Smith Jr., MD [address] [place] [id number] Surgeon General Surgery 11/07/19 Arley Peña MD [address] [place] [id number] Surgeon General Surgery 06/26/20 documented as of this encounter
--- OUTSIDE RECORDS SUMMARY | 2024-02-26 21:36 | XMS_ITS | Encounter Summary ---
Author Organization [facility] Healthcare Address [address] [place] [address] Care Team Providers Care Non Emergency Services Ambulance Driver Name Role Phone Damon Swanson DO Unavailable [phone] Zeke Puente MD Primary Care Provider Sarah Baldwin MD, Karl N. Unavailable [phone] Arley Peña MD Unavailable [phone] Reason for Visit * Reason Comments Leg Pain Encounter Details Date Type Department Care Team (Latest Contact Info) Description 06/16/2020 12:29 PM CDT - 06/26/2020 4:07 PM CDT Hospital Encounter [id number] [place] [id number] Preeti Barr MD [address] [place] [address] Tanisha Bundy MD [facility] [place] [address] Summer Anguiano MD [address] [place] [address] Harlan Salamanca MD [address] [place] [address] Reagan Salinas MD [address] [facility] [place] [address] Other acute osteomyelitis of left foot ([facility]) (Primary Dx); Encephalopathy acute; Hyperlipidemia, unspecified hyperlipidemia type; Hypertension, unspecified type; Type 2 diabetes mellitus with other specified complication, unspecified whether mcc insulin use ([facility]); PVD (peripheral vascular disease) ([facility]); Gastrointestinal hemorrhage, unspecified gastrointestinal hemorrhage type Discharge Disposition: Discharge to SNF Social History Tobacco Use Types Packs/Day Years [...] How often do you attend catholic or rastafari serv ices? 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 Gender Identity Not on file Sexual Orientation Not on file documented as of this encounter Last Filed Vital Signs Vital Sign Reading Time Taken Comments Blood Pressure 132/56 06/26/2020 12:53 PM CDT Pulse 83 06/26/2020 12:53 PM CDT Temperature 36.9 ??C (98.5 ??F) 06/26/2020 12:53 PM C DT Respiratory Rate 20 06/26/2020 12:53 PM CDT Oxygen Saturation 98% 06/26/2020 12:53 PM CDT Inhaled Oxygen Concentration - - Weight 76.7 kg (169 lb) 06/23/2020 1:05 PM CDT Height 104.1 cm (3' 5 ) 06/23/2020 1:05 PM CDT Body Mass Index 70.68 06/23/2020 1:05 PM CDT documented in this encounter Discharge Diagnoses Diagnosis Type 2 diabetes mellitus with other specified complication (HCC) - TYPE 2 DIABETES MELLITUS WITH OTHER SPECIFIED COMPLICATION Perforation of intestine (nontraumatic) ([facility]) - PERFORATION OF INTESTINE (NONTRAUMATIC) Do not resuscitate - DO NOT RESUSCITATE Other acute osteomyelitis, left ankle and foot ([facility]) - OTHER ACUTE OSTEOMYELITIS, LEFT ANKLE AND FOOT Acute posthemorrhagic anemia - ACUTE POSTHEMORRHAGIC ANEMIA Moderate protein-calorie malnutrition (CMS/HCC) ([facility]) - MODERATE PROTEIN-CALORIE MALNUTRITION Encephalopathy, unspecified - ENCEPHALOPATHY, UNSPECIFIED Pericardial effusion (noninflammatory) - PERICARDIAL EFFUSION (NONINFLAMMATORY) 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[facility]) - CELIAC ARTERY COMPRESSION SYNDROME Celiac artery compression syndrome Vascular disorder of intestine, unspecified ([facility]) - VASCULAR DISORDER OF INTESTINE, UNSPECIFIED Hematemesis - HEMATEMESIS Type 2 diabetes mellitus with diabetic peripheral angiopathy without gangrene ([facility]) - TYPE 2 DIABETES MELLITUS WITH DIABETIC PERIPHERAL ANGIOPATHY WITHOUT GANGRENE Hypothyroidism, unspecified - HYPOTHYROIDISM, UNSPECIFIED Hyperlipidemia, unspecified - HYPERLIPIDEMIA, UNSPECIFIED Hypokalemia - HYPOKALEMIA Hypopotassemia Unspecified dementia without behavioral disturbance - UNSPECIFIED DEMENTIA WITHOUT BEHAVIORAL DISTURBANCE Essential (primary) hypertension - ESSENTIAL (PRIMARY) HYPERTENSION Unspecified essential hypertension Unspecified atherosclerosis of [place] arteries of extremities, right leg (HCC) - UNSPECIFIED ATHEROSCLEROSIS OF EGEGIK ARTERIES OF EXTREMITIES, RIGHT LEG Ventral hernia without obstruction or gangrene - VENTRAL HERNIA WITHOUT OBSTRUCTION OR GANGRENE Unspecified ventral hernia without mention of obstruction or gangrene Fecal impaction (CMS/HCC) (HCC) - FECAL IMPACTION Other impaction of intestine Contact with and (suspected) exposure to covid-19 - CONTACT WITH AND (SUSPECTED) EXPOSURE TO COVID-19 Personal history of COVID-19 - PERSONAL HISTORY OF COVID-19 Acquired absence of right leg above knee (CMS/HCC) (HCC) - ACQUIRED ABSENCE OF RIGHT LEG ABOVE KNEE Headache, unspecified - HEADACHE, UNSPECIFIED Other malaise - OTHER MALAISE documented in this encounter Discharge Summaries * Arley Peña MD - 06/24/2020 12:00 AM CDT This is a 65-year-old black female who had recovered from COVID last year who had 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 Subsequently, she was doing well. She had become anemic. She was being transfused. However, she started vomitingand then a CT scan of the abdomen was ordered which shows air in the gastric wall and air in the portal vein and parts of the liver. I have seen her in ICU. Clinically, her symptoms did not match with any mesenteric ischemia. She had no abdominal pain and therefore we have been observing. I received a call this morning, they are ready to discharge her. The patient is basically asymptomatic in terms of abdominal pain. She was on a regular diet. She isnot vomiting, had no abdominal pain. She does complain of pain in the left stump. Currently she is on Tylenol, Dilaudid, oxycodone, Zosyn, enoxaparin, Lovenox, insulin Lantus, insulin lispro sliding scale, amlodipine, gabapentin, glucagon, dextrose 40% gel as needed, sodium chloride flush as needed, Zofran, Protonix, levothyroxine. She is on limited CPR. She is getting regular diet. In addition, she is getting nutrition supplement which is Glucerna shake. Examination She is a well-built nourished black female, alert, cooperative and conscious. Difficult to understand her but she does communicate rather well. She looks well orientated. Not in any acute distress. Temperature is 36.8, pulse 71, respirations 20, oxygen saturation 100%, blood pressure is 133/76. No cervical lymphadenopathy. No cervical bruit. No thyromegaly. Auscultation of heart reveals heartrate to be 71 per minute, regular. No murmur. No gallops. No chest wall deformity. No chest wall tenderness. No respiratory distress. Lungs are clear to auscultation. No foreign sounds. Examination of the abdomen reveals no aortic bruit, no iliac bruit, no tenderness, no guarding. Peristalsis normal . She has a ventral hernia that is partially reducible that has not changed. No distention. Femoral pulses are weak. The right AK stump is healed. Left AK stump samara are in situ with no significant drainage. Her mentation is better. Clinical Impression History of mesenteric ischemia which was questionable raised by CT scan. Discussion Her lab work at this point shows that her GFR was 96 today. BMP was normal except for calcium of 8.3. CBC showed hemoglobin 7.6, hematocrit 23.1, white cell count 11,100. At this point, she can be discharged safely. I will discontinue Zosyn and I have asked the nursing staff to have the group home call me for postop care on the left AK stump. Job ID/VF Job ID: [id number] documented in this encounter Medications at Time of Discharge amLODIPine (NORVASC) 10 mg tablet Take 1 tablet (10 mg total) by mouth daily atorvastatin (LIPITOR) 40 mg tablet Take 1 tablet (40 mg total) by mouth daily levothyroxine (SYNTHROID) 100 mcg tablet Take 1 tablet (100 mcg total) by mouth emulsion operator before breakfast 30 tablet 1 06/25/2020 gabapentin (NEURONTIN) 400 mg capsule Take 1 capsule (400 mg total) by mouth 2 (two) times a day 60 capsule 11 06/24/2020 3 oxyCODONE (ROXICODONE) 5 mg immediate release tabletIndication s:Pain Take 1 tablet (5 mg total) by mouth every 4 (four) hours as needed for pain 30 tablet 06/24/[address] (PROTONIX) 40 mg EC tablet Take 1 tablet (40 mg total) by mouth daily 30 tablet 06/24/2020 3 documented as of this encounter Ordered Prescriptions Prescription Sig Dispense Quantity Refills Last Filled Start Date End Date levothyroxine (SYNTHROID) 100 mcg tablet Take 1 tablet (100 mcg total) by mouth emulsion operator before breakfast 30 tablet 1 06/25/2020 oxyCODONE (ROXICODONE) 5 mg immediate release tabletIndications: Pain Take 1 tablet (5 mg total) by mouth every 4 (four) hours as needed for pain 30 tablet 06/24/[address] (PROTONIX) 40 mg EC tablet Take 1 tablet (40 mg total) by mouth daily 30 tablet 11 06/24/2020 3 gabapentin (NEURONTIN) 400 mg capsule Take 1 capsule (400 mg total) by mouth 2 (two) times a day 60 capsule 06/24/2020 3 documented in this encounter Discharge Disposition Disposition Code Departure Means Destination Discharge to [facility] documented in this encounter Progress Notes * Ivelisse March, OT - 06/26/2020 11:30 AM CDT Occupational Therapy 06/26/20 1130 General Session Type Treatment OT Received On 06/26/20 Safe Environment Arm Band Checked Subjective Agreeable to Therapy;Other Subjective Comment eating lunch, agreeable to education and feeding technique Family/Caregiver Present No Precautions Precautions Fall risk Pain Assessment Pain Assessment 0-10 Pain Score (did not c.o pain during brief OT intervention) Clinical Progression Not changed Feeding Response to foods trialed pt feeding self upon arrival, requires set up assist to manage and open containers Transfer 1 Trials/Comments 1 pt declines acivity at this time but is open to educatiobn, exercise, and activity when finished eating Exercise Tools Other Exercise Tool 1 provided red theraband and HEP Cognition Orientation Oriented X4 (person, place, time, situation) Compliance/Behavior Easy to engage Other Comments Comments see education section in note Assessment Prognosis Good Plan Plan Continue with current plan Recommendation/Plan OT Recommendation [facility] Education: Patient has been educated on the role of OT, safety, precautions, ADL training, mobilitytraining, home exercise program, body mechanics, energy conservation and use of adaptive equipment/DME. Education completed via verbal instruction, return demonstration and handouts. Patient verbalized understanding, demonstrated understanding and needs ongoing reinforcement AKA therapy packet: desensitizatio handout, positioning, safety, therapy progression, BUE HEP theraband Multi-Disciplinary Problems (from Occupational Therapy) Active Problems Problem: OT Misc Start Date: 06/24/20 Goal Start Date End Date OT [facility] 1 06/24/20 -- Goal Details: Pt will complete toileting tasks and toilet transfer moderate assist Goal Start Date End Date OT [facility] 2 06/24/20 -- Goal Details: Pt will complete grooming tasks at sink moderate assist Goal Start Date End Date OT [facility] 3 06/24/20 -- Goal Details: Pt will complete UB dressing minimal assist Goal Start Date End Date OT [facility] 4 06/24/20 -- Goal Details: Pt will complete object retrieval from varying heights modified independent to simulate ADLs and IADLs * Alana Montano - 06/26/2020 10:20 AM CDT INPATIENT MUSIC THERAPY TREATMENT Time In: 919 Time Out: 1020 TYPE OF SESSION/NOTE: Progress/Treatment Hospital Unit: Surgical Referred By: Physical Therapy on 06/23/2020 Reason for Referral: pain, cognitive stimulation and relaxation Referral Status: patient seen this date Isolation Precautions: Contact - modified (VRE, MRSA) SUBJECTIVE: Patient resting in chair upon approach, agreeable to music therapy services. Patient pleasant and participatory during pursed lip breathing exercises embedded within live music. Patient demonstrates a positive response to music this date. Patient [facility] Patient engaged in conversation about holiday traditions and requested nichole music. 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 choir / enjoys singing Patient's Musical Preferences: Decade(s): Genres: easy listening, popular, [place] music / no jazz Artists/Groups: none stated Psychosocial History: Family: one daughter, three sons, several grandchildren and great-grandchildren (ages 11 months - 11 years) 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) Leisure: watching television, coloring Yarsanism/Spiritual: [employer] OBJECTIVE: Observed Behavior State: easy to engage and alert Cognitive Status: unable to assess, hx of dementia per chart review Interventions Used: Patient preferred music, therapeutic singing, iso- principle/entrainment, pulmonary exercises to music, patterned sensory cues, counseling techniques: validation and empathy, musiclistening and song choice Instruments / Materials Used: guitar and voice Role of Music: temporal cues, spatial cues, offer structure, offer familiarity, to engage and provide comfort Songs Used in Therapy:__7__ Song 1: Build Me Up Buttercup (pursed lip breathing, 5 reps / therapeutic singing) Song 2: Can't Help Myself (pursed lip breathing, 5 reps / therapeutic singing) Song 3: I Can See Clearly Now (pursed lip breathing, 7 reps / therapeutic singing) Song 4: Deck The [place] (therapeutic singing / song discussion) Song 5: August The Red Nosed [place] (therapeutic singing / song discussion) Song 6: White Nichole (therapeutic singing / song discussion) Song 7: It's The Most Wonderful Time Of The Year (therapeutic singing / song discussion) PRE-TREATMENT VITALS: POST-TREATMENT VITALS: SPO2: 93% SPO2: 95% HR: 75 bpm HR: 76 bpm Education: Patient was educated on the purpose of music therapy in the hospital setting and treatment areas/goals addressed during therapy sessions. Education completed via explanation and demonstration. Patient verbalized understanding and needs ongoing reinforcement. ASSESSMENT: Patient's Response to Music: positive sang along to entire song, decreased muscle tension, engaged in conversation, positive verbalizations, positive facial affect, improved vitals and initiation of social interaction Areas of Need Upon Assessment: Increase: active engagement in environment, autonomy and control, mood, psychosocial functioning, relaxation, respiratory comfort/endurance, quality of life and social engagement Decrease: situational anxiety PLAN OF CARE: Multi-Disciplinary Problems (from [place] Music Therapy) Active Problems Problem: [facility] Start Date: 06/24/20 Goal Start Date End Date [facility] 1 06/24/20 -- Goal Details: Patient will increase pulmonary function by completing various exercises with SPO2 at=/> 92% or by increasing SPO2 by =/>1% in at least one music therapy session prior to discharge Goal Start Date End Date [facility] 2 06/24/20 -- Goal Details: Patient will demonstrate signs of mood elevation/increased relaxation/decreased anxiety (brightened facial affect, decreased muscle tension, positive verbalizations, improved vital signs, etc.) in at least one music therapy session prior to discharge Frequency of Sessions: PRN Continue music therapy for psychosocial support and any other comfort needs that may arise during length of stay. If last note, consider discharge summary. Cosigned by Twyla Juan MT-BC at 06/26/2020 12:36 PM CDT * Reagan Salinas MD - 06/26/2020 9:19 AM CDT General Medicine Daily Progress CC: leg pain Discharge Summary completed by Dr. Peña Subjective: Doing well, pain is controlled. Appetite is good. Denies chest pain, dyspnea Objective Vitals: 24hr Min/Max: Temp Min: 36.6 ??C (97.8 ??F) Max: 37 ??C (98.6 ??F) Pulse Min: 72 Max: 82 BP Min: 118/60 Max: 145/55 Resp Min: 18 Max: 20 SpO2 Min: 95 % Max: 100 % Most Recent : Vitals: 06/26/20 0802 BP: 130/54 Pulse: 82 Resp: 18 Temp: 36.8 ??C (98.3 ??F) SpO2: 98% I/O last 2 completed shifts: In: 730 [P.O.:720; IV Piggyback:10] Out: 1400 [Urine:1400] No intake/output data recorded. Body mass index is 70.68 kg/m??. Physical Exam Vitals and nursing note reviewed. Constitutional: General: She is not in acute distress. HENT: Head: Normocephalic. Cardiovascular: Rate and Rhythm: Normal rate and regular rhythm. Heart sounds: Normal heart sounds. Pulmonary: Effort: Pulmonary effort is normal. No respiratory distress. Breath sounds: Normal breath sounds. Abdominal: General: Bowel sounds are normal. Palpations: Abdomen is soft. Tenderness: There is no abdominal tenderness. Hernia: A hernia is present. Comments: Ventral hernia Musculoskeletal: Comments: S/p right AKA Now s/p left AKA--wrapped Skin: General: Skin is warm and dry. Neurological: Mental Status: She is alert and oriented to person, place, and time. Psychiatric: Mood and Affect: Mood normal. Current Medications: Current Facility-Administered Medications Medication Dose Route Frequency Provider Last Rate Last Admin ??? acetaminophen (TYLENOL) tablet 650 mg 650 mg oral Q4H PRN Harlan Salamanca MD 650 mg at 06/26/20 0231 ??? amLODIPine (NORVASC) tablet 10 mg 10 mg oral Daily Harlan Salamanca MD 10 mg at 06/26/20 0854 ??? dextrose (GLUTOSE) 40 % gel 15 g 15 g oral Q15 Min PRN Harlan Salamanca MD Or ??? dextrose (D10W) 10% bolus 250 mL 250 mL intravenous Q15 Min PRN Harlan Salamanca MD ??? enoxaparin (LOVENOX) syringe 40 mg 40 mg subcutaneous Daily-2099 Harlan Salamanca MD 40 mg at06/25/202234 ??? gabapentin (NEURONTIN) capsule 400 mg 400 mg oral BID Summer Anguiano MD 400 mg at 854 ??? glucagon injection 1 mg 1 mg intramuscular Q30 Min PRN Harlan Salamanca MD ??? HYDROmorphone (DILAUDID) injection 0.5 mg 0.5 mg intravenous Q4H PRN Harlan Salamanca MD 0.5 mg at 06/22/20 0006 ??? insulin glargine (LANTUS) 100 unit/mL injection 7 Units 7 Units subcutaneous QAM DavidA. Salamanca MD 7 Units at 06/26/20 0853 ??? insulin lispro (HumaLOG, ADMELOG) 100 unit/mL injection 1-2 Units 1-2 Units subcutaneous Nightly Harlan Salamanca MD 1 Units at 06/24/20 2110 ??? insulin lispro (HumaLOG, ADMELOG) 100 unit/mL injection 1-3 Units 1-3 Units subcutaneous TID with meals Harlan Salamanca MD 1 Units at 06/23/20 1133 ??? levothyroxine (SYNTHROID) tablet 100 mcg 100 mcg oral Daily - 0600 Harlan Salamanca MD 100 mcg at 06/26/20 0613 ??? ondansetron (ZOFRAN) injection 4 mg 4 mg intravenous Q6H PRN Harlan Salamanca MD ??? oxyCODONE (ROXICODONE) tablet 5 mg 5 mg oral Q4H PRN Harlan Salamanca MD 5 mg at 06/25/20 1517 ??? pantoprazole (PROTONIX) injection 40 mg 40 mg intravenous BID Harlan Salamanca MD 40 mg at 06/26/20 0854 ??? sodium chloride 0.9% flush 0.5-20 mL 0.5-20 mL intra-catheter Q8H Harlan Spangler MD 10 mL at 06/25/20 2236 ??? sodium chloride 0.9% flush 0.5-20 mL 0.5-20 mL intra-catheter PRN Harlan Salamanca MD ??? sodium chloride 0.9% flush 0.5-20 mL 0.5-20 mL intra-catheter Q8H Harlan Spangler MD 10 mL at 06/26/20 0612 ??? sodium chloride 0.9% flush 0.5-20 mL 0.5-20 mL intra-catheter PRN Harlan Salamanca, MD Lab/Radiology/Diagnostic Review: CBC: Recent Labs Lab Units 06/24/20 0538 06/23/20 0601 06/23/20 0012 06/22/20 1233 06/22/20 0352 WBC K/cumm 11.1* 12.8* -- -- 8.8 HEMOGLOBIN g/dL 7.6* 7.2* 7.3* 7.0* < > 8.5* HEMATOCRIT % 23.1* 21.2* 21.5* 20.6* < > 25.1* PLATELETS K/cumm 248 208 -- -- 195 NEUTROS PCT % 68.1 72.5 -- -- 71.7 LYMPHS PCT % 19.8 16.9 -- -- 17.0 MONOS PCT % 5.0 4.1 -- -- 4.6 EOS PCT % 1.8 2.2 -- -- 1.4 < > = values in this interval not displayed. CMP: Recent Labs Lab Units 06/26/20 0610 06/25/20 2234 06/25/20 1635 06/24/20 0750 06/24/20 0538 06/22/20 0907 06/22/20 0352 06/21/20 2221 06/21/20 2221 SODIUM mmol/L -- -- -- -- 137 -- 137 -- 137 POTASSIUM PLASMA mmol/L -- -- -- -- 3.7 -- 3.7 -- 4.0 CHLORIDE mmol/L -- -- -- -- 97 -- 97 -- 98 CO2 mmol/L -- -- -- -- 30 -- 29 -- 33* ANIONGAP mmol/L -- -- -- -- 10 -- 11 -- 6 GLUCOSE mg/dL -- -- -- -- 96 -- 102 < > 162 POC GLUCOSE MONITOR mg/dL 90 170* 160* < > -- < > -- -- -- BUN SERUM mg/dL -- -- -- -- 10 -- 18 -- 19 CREATININE mg/dL -- -- -- -- 0.60 -- 0.65 -- 0.65 CALCIUM mg/dL -- -- -- -- 8.3* -- 8.8 -- 8.9 ALBUMIN g/dL -- -- -- -- -- -- 3.6 -- 3.7 < > = values in this interval not displayed. A/P Labs and radiology findings were personally reviewed by me. Principal Problem: Gastrointestinal hemorrhage Active Problems: Moderate malnutrition (CMS/HCC) PVD (peripheral vascular disease) (CMS/HCC) Anemia Hypothyroidism Hyperlipidemia Dementia (CMS/HCC) Diabetes mellitus (CMS/HCC) Hypertension Osteomyelitis of Left foot in the setting of severe PAD and type 2 DM, s/p left AKA Rt LE osteo s/p AKA in 11/30 - XR showing acute osteo of the posterior calcaneous. S/p AKA continue gabapentin 400 BID Continue oxycodone prn pain possible gastric ischemia with spontaneous GI perforation causing hematemesis Hematemesis now resolved; hgb stable Advanced diet Not felt to be an operative candidate Type 2 DM - A1c 8.6. Continue sliding scale and morning Lantus; stable ?? Essential HTN - norvasc PVD/ Celiac stenosis ?? Acquired Hypothyroidism - continue synthroid ?? Dementia -stable; awake, alert, oriented x2 COVID 19 recovered Medical decision making: moderate DVT PROPHYLAXIS with Lovenox Stable for discharge. Reagan Salinas MD 06/26/2020 * Macie Joe, RD - 06/25/2020 1:24 PM CDT Nutrition Follow-up Progress Note Encounter Date: 06/25/20 1:24 PM Nutrition Progress Summary: Patient is a 65 y.o. female. Admit Dx: OTHER ACUTE OSTEOMYELITIS OF LEFT FOOT (CMS/HCC). Admitted on 06/16/2020. Patient's intake is adequate. Objective Dietary Orders (From admission, onward) Start Ordered 06/23/20 1554 Adult Diet GI Diets; Esophageal Soft Diet effective now Question Answer Comment ([facility]) Diet type GI Diets GI: Esophageal Soft 06/23/20 1553 06/23/20 1120 Oral Nutrition Supplements Select Supplement: Glucerna Shake - [place] 3 times daily Question: Select Supplement: Answer: Glucerna Shake - [place] 06/23/20 1119 Anthropometrics Weight: 76.7 kg (169 lb) Admission Weight : 74.7 kg Weight Change: -98.24 kg (-216.58 lbs) IBW/kg (Calculated) : 2.3 kg Height: 104.1 cm (3' 5 ) Weight in (lb) to have BMI = 25: 59.6 BMI (Calculated): 70.7 Intake/Output Summary (Last 24 hours) at 06/25/2020 1324 Last data filed at 06/25/2020 1240 Gross per 24 hour Intake 520 ml Output 2025 ml Net -1505 ml Medications and Lab Review: Scheduled Meds: amLODIPine, 10 mg, oral, Daily enoxaparin, 40 mg, subcutaneous, Daily-2100 gabapentin, 400 mg, oral, BID insulin glargine, 7 Units, subcutaneous, QAM insulin lispro, 1-2 Units, subcutaneous, Nightly insulin lispro, 1-3 Units, subcutaneous, TID with meals levothyroxine, 100 mcg, oral, Daily - 0600 pantoprazole, 40 mg, intravenous, BID sodium chloride 0.9%, 0.5-20 mL, intra-catheter, Q8H KASIE sodium chloride 0.9%, 0.5-20 mL, intra-catheter, Q8H KASIE Continuous Infusions: PRN Meds: ??? acetaminophen ??? dextrose OR dextrose ??? glucagon ??? HYDROmorphone ??? ondansetron ??? oxyCODONE ??? sodium chloride 0.9% ??? sodium chloride 0.9% Sodium Date Value Ref Range Status 06/24/2020 137 135 - 145 mmol/L Final Potassium, pl Date Value Ref Range Status 06/24/2020 3.7 3.3 - 4.9 mmol/L Final BUN Date Value Ref Range Status 06/24/2020 10 8 - 25 mg/dL Final Creatinine Date Value Ref Range Status 06/24/2020 0.60 0.60 - 1.10 mg/dL Final Calcium Date Value Ref Range Status 06/24/2020 8.3 (L) 8.5 - 10.3 mg/dL Final Lab Results Component Value Date HGBA1C 8.0 (H) 06/18/2020 Nursing Assessment: Last BM Date: 06/23/20 Bowel Sounds (All Quadrants): Present Grayson Scale Score: 13 Skin Integrity: Surgical incision, Other (Comment)(Healed pressure injury) Type of Wound (LDA): Surgical site Nutrition Needs Calculations: Calculated Energy Needs Using Equations Weight: 76.7 kg (169 lb) Height: 104.1 cm (3' 5 ) Estimated Protein Needs Type of Weight Used for Estimated Protein : Cosby Protein Needs Based on g/k.5 Total Protein Estimated Needs (gm): 74.85 Kcal/kg Type of Weight Used for Estimated Kcals: Current Kcal/k Total Kcal/kg Estimated Needs : 1494.14 Impression: Pt reports appetite is stable. Ate 50% of bkft this am. Po intakes recorded 50-75% of meals since previous visit. Per RN, no issues with chewing esophageal soft diet w/o dentures in. Pt likes glucerna, will continue to send TID. Encouraged po intakes. New wt obtained is 169 lb on 06/23 (after L AKA). Plan: continue glucerna TID Current Nutrition Issues: Nutrition Diagnosis 1: Increased nutrient needs (protein) Related to: Wounds Evidenced by: Physicalfinding Nutrition Plan: Interventions: Medical food supplement Monitoring and Evaluation: Labs, Plan of care, PO intake, Supplement tolerance Goals: Oral intake to meet 75% estimated nutritional needs by next assessment Macie Joe RD, LD * Genesis Boateng DPT - 06/25/2020 10:54 AM CDT Physical Therapy 06/25/20 1054 PT Last Visit Session Type Treatment PT Received On 06/25/20 Safe Environment Arm Band Checked;Bed Alarm placed and activated;Chair Alarm placed and activated;Call Light within Reach;Notified RN;Session Completed Bedside;Patient found in Supine;Overbed Table within Reach;Bed in Lowest Position with Wheels locked;Bed rails up per protocol Subjective Agreeable to Therapy Subjective Comment Pt reports 8/10 pain and RN states pt just had pain meds approx 15 min ago. Pt is pleasant and cooperative and agrees to PT. PT completed session w/ assistance of pediatric sports medicine specialist to maximize safety with all functional mobility. Family/Caregiver Present No Current Functional Status PT Functional Mobility Pt rolls BRENDON with mod assist x1 + bedrail in each direction, supine-->sitEOB with max assist x2 + bedrail, sits EOB x14 min w/ mod-max assist x1 for posterior support and SBA to CGA from PT for anterior support - pt worked on forward trunk flexion and reaching for objectsw/ each UE, sit-->supine w/ mod assist x1 + bedrail, transfers bed-->Arevalo chair with total assist via Prism amisha lift and repositioning sling, pt positioned in upright sitting w/ chair alarmplaced and activated + call light and all needs + lunch tray in place - RN notified. Precautions Precautions Bed/Chair Alarm;Fall risk;Safety Activity Tolerance Endurance Tolerates 30 min activity with multiple rests Activity Tolerance Comments Vitals: BP 154/73 HR 77 bpm O2 100% on room air. Pain Assessment Pain Assessment 0-10 Pain Score 8 Patient's Stated Pain Goal No pain Pain Type Surgical pain Pain Location Leg Pain Orientation Left Pain Descriptors Aching;Sharp;Tender;Throbbing;Sore Pain Frequency Constant/continuous Pain Onset Ongoing Clinical Progression Gradually improving (increased w/ movement, then alleviated w/ rest in chair) Pain Interventions Medication (See MAR);Repositioned;RN Notified;Rest (RN gave pt pain meds shortly before PT arrived) Response to Interventions Partial pain relief (5-6/10 left LE pain in Arevalo chair at end of session) Cognition Orientation Oriented X4 (person, place, time, situation) Balance Balance Yes Dynamic Sitting Balance Dynamic Sitting-Balance Support Bilateral upper extremity supported;Unilateral upper extremity supported;Feet unsupported (pt is BRENDON AKA so no LE support feasible on the floor) Dynamic Sitting-Balance Forward lean;Reaching for objects;Reaching across midline;Trunk control activities Dynamic Sitting-Sitting Surface Bed (deflated mattress for safety) Dynamic Sitting-Level of Assistance Moderate assistance;Maximum assistance (pt needs 2nd person to provide mod-max assist on her back) Dynamic Sitting-Comments sits EOB x14 min (total 14 min of static + dynamic sitting balance work) w/ mod-max assist x1 for posterior support due to posterior lean/LOB and SBA to CGA from PT for anterior support - pt worked on forward trunk flexion x5 reps and reaching for objects w/ each UE - x5 reps w/ each UE Bed Mobility Bed Mobility Yes Bed Mobility 1 Bed Mobility Comments 1 rolls BRENDON with mod assist x1 + bedrail in each direction, supine-->sit EOB with max assist x2 + bedrail, sit-->supine w/ mod assist x1 + bedrail Transfers Transfer Yes Transfer 1 Trials/Comments 1 transfers bed-->Arevalo chair with total assist via Prism amisha lift and repositioning sling, pt positioned in upright sitting w/ chair alarm placed and activated + call light andall needs in reach + lunch tray in place - RN notified Ambulation Ambulation No Stairs Stairs No Stair Comments not applicable Other Comments Other PT Comments Pt w/ improved tolerance for sitting EOB, completing 15 minutes while working on trunk flexion and unilateral reaching in various directions. Pt's bed mobility is modestly improvingas well. Pt continues to require amisha lift for safety with all transfers and 2-person assist for safety. Pt remains cooperative and motivated to work with PT. Pt to benefit from continued PT services to address deficits and maximize functional abilities. Continue per plan of care. Assessment Prognosis Fair Problem List Decreased strength;Decreased range of motion;Decreased endurance;Impaired balance;Decreased mobility;Decreased cognition;Decreased safety awareness;Obesity;Pain;Postural deficit;Edema;Decreased handling tolerance;Decreased ADLs Barriers to Discharge Current Mobility Status;Inaccessible home environment;Decreased caregiver support;Cognition;Decreased safety awareness Plan Plan Continue with current plan;If this is the last note, consider this the discharge summary Recommendation/Plan PT Recommendation/Plan [facility] Facility Treatment/Interventions Balance Training;Bed mobility;Endurance training;Equipment eval/education;Functional activity;Functional transfer training;Midline orientation;Neuromuscular re-education;Parent/caregiver training and education;Range of motion;Strengthening;Therapeutic activity;Therapeutic exercise;Transfer training;UE motor function/functional skills;Wheelchair mobility/management PT Equipment Recommended Other (Comment) (further assessment required pending pt progress w/ mobility) Progress Progressing toward goals PT - OK to Discharge No Education: Patient has been educated on the role of PT, safety , precautions and mobility training.Education completed via explanation. Patient verbalized understanding, demonstrated understanding and needs ongoing reinforcement. Multi-Disciplinary Problems (from Physical Therapy) Active Problems Problem: PT [facility] Start Date: 06/24/20 Goal Start Date End Date PT [facility] 1 06/24/20 -- Goal Details: Pt will roll BRENDON with minimum assist and BRENDON bedrails for trunk support. Goal Start Date End Date PT [facility] 2 06/24/20 -- Goal Details: Pt will supine<-->sit EOB with minimum to mod assist x1 + bedrail for trunk support. Goal Start Date End Date PT [facility] 3 06/24/20 -- Goal Details: Pt will sit EOB x10 minutes w/ SBA to CGA x1 w/ BRENDON UE support for safety. Goal Start Date End Date PT [facility] 4 06/24/20 -- Goal Details: Pt will perform lateral scooting (side to side) on EOB with minimum to mod assist x1 (to strengthen hips and core in preparation for transfer training via slide board or posterior/anterior scooting bed<-->WC). Goal Start Date End Date PT [facility] 5 06/24/20 -- Goal Details: Pt will perform post-op AKA HEP w/ minimum assist in the bed and rest breaks as needed, BRENDON LE x15. * Reagan Salinas MD - 06/25/2020 10:25 AM CDT General Medicine Daily Progress CC: leg pain Subjective Feels god, denies chest ain, dyspnea. Has 8/10 pain in left AKA- looks comfortable. She is eating lunch. Objective Vitals: 24hr Min/Max: Temp Min: 36.8 ??C (98.3 ??F) Max: 37.2 ??C (98.9 ??F) Pulse Min: 73 Max: 80 BP Min: 123/62 Max: 146/63 Resp Min: 15 Max: 21 SpO2 Min: 96 % Max: 100 % Most Recent : Vitals: 06/25/20 0805 BP: 123/62 Pulse: 73 Resp: 16 Temp: 36.9 ??C (98.5 ??F) SpO2: 98% I/O last 2 completed shifts: In: 635 [P.O.:625; IV Piggyback:10] Out: 2475 [Urine:2475] I/O this shift: In: 260 [P.O.:250; IV Piggyback:10] Out: - Body mass index is 70.68 kg/m??. Physical Exam Vitals and nursing note reviewed. Constitutional: General: She is not in acute distress. HENT: Head: Normocephalic. Cardiovascular: Rate and Rhythm: Normal rate and regular rhythm. Heart sounds: Normal heart sounds. Pulmonary: Effort: Pulmonary effort is normal. No respiratory distress. Breath sounds: Normal breath sounds. Abdominal: General: Bowel sounds are normal. Palpations: Abdomen is soft. Tenderness: There is no abdominal tenderness. Hernia: A hernia is present. Comments: Ventral hernia Musculoskeletal: Comments: S/p right AKA Now s/p left AKA--wrapped Skin: General: Skin is warm and dry. Neurological: Mental Status: She is alert and oriented to person, place, and time. Psychiatric: Mood and Affect: Mood normal. Current Medications: Current Facility-Administered Medications Medication Dose Route Frequency Provider Last Rate Last Admin ??? acetaminophen (TYLENOL) tablet 650 mg 650 mg oral Q4H PRN Harlan Salamanca MD 650 mg at 06/25/204 ??? amLODIPine (NORVASC) tablet 10 mg 10 mg oral Daily Harlan Salamanca MD 10 mg at 06/25/20823 ??? dextrose (GLUTOSE) 40 % gel 15 g 15 g oral Q15 Min PRN Harlan Salamanca MD Or ??? dextrose (D10W) 10% bolus 250 mL 250 mL intravenous Q15 Min PRN Harlan Salamanca MD ??? enoxaparin (LOVENOX) syringe 40 mg 40 mg subcutaneous Daily-2099 Harlan Salamanca MD 40 mg at06/24/202104 ??? gabapentin (NEURONTIN) capsule 400 mg 400 mg oral BID Summer Anguiano MD 400 mg at ??? glucagon injection 1 mg 1 mg intramuscular Q30 Min PRN Harlan Salamanca MD ??? HYDROmorphone (DILAUDID) injection 0.5 mg 0.5 mg intravenous Q4H PRN Harlan Salamanca MD 0.5 mg at 06/22/20 0006 ??? insulin glargine (LANTUS) 100 unit/mL injection 7 Units 7 Units subcutaneous QAM DavidA. Salamacna MD 7 Units at 04/15/21 0824 ??? insulin lispro (HumaLOG, ADMELOG) 100 unit/mL injection 1-2 Units 1-2 Units subcutaneous Nightly Harlan Salamanca MD 1 Units at 06/24/20 2110 ??? insulin lispro (HumaLOG, ADMELOG) 100 unit/mL injection 1-3 Units 1-3 Units subcutaneous TID with meals Harlan Salamanca MD 1 Units at 06/23/20 1133 ??? levothyroxine (SYNTHROID) tablet 100 mcg 100 mcg oral Daily - 0600 Harlan Salamanca MD 100 mcg at 06/25/20 0625 ??? ondansetron (ZOFRAN) injection 4 mg 4 mg intravenous Q6H PRN Harlan Salamanca MD ??? oxyCODONE (ROXICODONE) tablet 5 mg 5 mg oral Q4H PRN Harlan Salamanca MD 5 mg at 06/24/20 1728 ??? pantoprazole (PROTONIX) injection 40 mg 40 mg intravenous BID Harlan Salamanca MD 40 mg at 06/25/20 0824 ??? sodium chloride 0.9% flush 0.5-20 mL 0.5-20 mL intra-catheter Q8H Harlan Spangler MD 10 mL at 06/24/20 2105 ??? sodium chloride 0.9% flush 0.5-20 mL 0.5-20 mL intra-catheter PRN Harlan Salamanca MD ??? sodium chloride 0.9% flush 0.5-20 mL 0.5-20 mL intra-catheter Q8H Harlan Spangler MD 10 mL at 06/25/20 0625 ??? sodium chloride 0.9% flush 0.5-20 mL 0.5-20 mL intra-catheter PRN Harlan Salamanca MD Lab/Radiology/Diagnostic Review: CBC: Recent Labs Lab Units 06/24/20 0538 06/23/20 0601 06/23/20 0012 06/22/20 1233 06/22/20 0352 WBC K/cumm 11.1* 12.8* -- -- 8.8 HEMOGLOBIN g/dL 7.6* 7.2* 7.3* 7.0* < > 8.5* HEMATOCRIT % 23.1* 21.2* 21.5* 20.6* < > 25.1* PLATELETS K/cumm 248 208 -- -- 195 NEUTROS PCT % 68.1 72.5 -- -- 71.7 LYMPHS PCT % 19.8 16.9 -- -- 17.0 MONOS PCT % 5.0 4.1 -- -- 4.6 EOS PCT % 1.8 2.2 -- -- 1.4 < > = values in this interval not displayed. CMP: Recent Labs Lab Units 06/25/20 0640 06/24/20 2107 06/24/20 1713 06/24/20 0750 06/24/20 0538 06/22/20 0907 06/22/20 0352 06/21/20 2221 06/21/20 2221 SODIUM mmol/L -- -- -- -- 137 -- 137 -- 137 POTASSIUM PLASMA mmol/L -- -- -- -- 3.7 -- 3.7 -- 4.0 CHLORIDE mmol/L -- -- -- -- 97 -- 97 -- 98 CO2 mmol/L -- -- -- -- 30 -- 29 -- 33* ANIONGAP mmol/L -- -- -- -- 10 -- 11 -- 6 GLUCOSE mg/dL -- -- -- -- 96 -- 102 < > 162 POC GLUCOSE MONITOR mg/dL 138 202* 156* < > -- < > -- -- -- BUN SERUM mg/dL -- -- -- -- 10 -- 18 -- 19 CREATININE mg/dL -- -- -- -- 0.60 -- 0.65 -- 0.65 CALCIUM mg/dL -- -- -- -- 8.3* -- 8.8 -- 8.9 ALBUMIN g/dL -- -- -- -- -- -- 3.6 -- 3.7 < > = values in this interval not displayed. A/P Labs and radiology findings were personally reviewed by me. Principal Problem: Gastrointestinal hemorrhage Active Problems: Moderate malnutrition ([facility]) PVD (peripheral vascular disease) ([facility]) Anemia Hypothyroidism Hyperlipidemia Dementia (CMS/HCC) Diabetes mellitus (CMS/HCC) Hypertension Osteomyelitis of Left foot in the setting of severe PAD and type 2 DM, s/p left AKA Rt LE osteo s/p AKA in 11/30 - XR showing acute osteo of the posterior calcaneous. S/p AKA continue gabapentin 400 BID Continue pain medications - monitor for somnolence possible gastric ischemia with spontaneous GI perforation causing hematemesis Hematemesis now resolved; hgb stable Advanced diet Not felt to be an operative candidate Type 2 DM - A1c 8.6. Continue sliding scale and morning Lantus; stable ?? Essential HTN - norvasc PVD/ Celiac stenosis ?? Acquired Hypothyroidism - continue synthroid ?? Dementia -stable; awake, alert, oriented x2 COVID 19 recovered Medical decision making: moderate DVT PROPHYLAXIS with Lovenox stable for discharge. D/w social work case manager- discharge planning underway Reagan Salinas MD 06/25/2020 * Ivelisse March, OT - 06/25/2020 10:15 AM CDT Occupational Therapy 06/25/20 1015 General Session Type Treatment OT Received On 06/25/20 Safe Environment Arm Band Checked;Bed Alarm placed and activated Subjective Agreeable to Therapy Family/Caregiver Present No Precautions Precautions Fall risk;Bed/Chair Alarm Pain Assessment Pain Assessment 0-10 Pain Score 0 - No pain Pain Location Leg Pain Orientation Left Clinical Progression Gradually worsening (5/5 with movement) Pain Interventions RN Notified;Repositioned;Increased activity;Distraction;Emotional support Grooming Grooming: Where assessed Supine, bed Grooming: Level of assistance Standby Assist Bed Mobility 1 Bed Mobility Comments 1 mod assist roll towards R side, max assist roll to L Transfer 1 Trials/Comments 1 not attempted this date as pt calls out in pain with movement of LLE- RN notified Exercise Tools Other Exercise Tool 1 2# dowel 15x: backward rowing;elbow flexion, chest press, forward rowing; 2# weight pronation/supination; cues for technique and positioning Cognition Cognition Comments functional conversation during session Orientation Oriented to person;Oriented to place;Oriented to situation Compliance/Behavior Easy to engage Additional Activities Additional Activities Comments worked on desensitization of L AKA, pt reports increased pain; worked on hands over hands desensitization technique to assist with pain control approx 5 min Assessment Prognosis Fair Plan Plan Continue with current plan Recommendation/Plan OT Recommendation [facility] Facility Education: Patient has been educated on the role of OT, safety, precautions, ADL training, mobilitytraining, home exercise program, body mechanics, energy conservation and use of adaptive equipment/DME. Education completed via verbal instruction and return demonstration. Patient verbalized understanding, demonstrated understanding and demonstrates no evidence of learning Multi-Disciplinary Problems (from Occupational Therapy) Active Problems Problem: OT Misc Start Date: 06/24/20 Goal Start Date End Date OT [facility] 1 06/24/20 -- Goal Details: Pt will complete toileting tasks and toilet transfer moderate assist Goal Start Date End Date [facility] 2 06/24/20 -- Goal Details: Pt will complete grooming tasks at sink moderate assist Goal Start Date End Date [facility] 3 06/24/20 -- Goal Details: Pt will complete UB dressing minimal assist Goal Start Date End Date [facility] 4 06/24/20 -- Goal Details: Pt will complete object retrieval from varying heights modified independent to simulate ADLs and IADLs Vitals: 06/25/20 1025 BP: 118/60 Pulse: 75 Resp: Temp: SpO2: 100% * Summer Anguiano MD - 06/24/2020 2:28 PM CDT General Medicine Daily Progress CC: leg pain Subjective The pt c/o leg pain today. She is s/p left AKA No n/v. No shortness of breath. No chest pain. No abd pain Pt appears comfortable today. Working on discharge planning. Objective Vitals: 24hr Min/Max: Temp Min: 36.8 ??C (98.2 ??F) Max: 37.3 ??C (99.2 ??F) Pulse Min: 71 Max: 87 BP Min: 105/60 Max: 183/84 Resp Min: 16 Max: 21 SpO2 Min: 97 % Max: 100 % Most Recent : Vitals: 06/24/20 1147 BP: 146/63 Pulse: 80 Resp: 21 Temp: 37.2 ??C (98.9 ??F) SpO2: 98% I/O last 2 completed shifts: In: 108 [P.O.:8; IV Piggyback:100] Out: 750 [Urine:750] I/O this shift: In: 125 [P.O.:125] Out: 1050 [Urine:1050] Body mass index is 70.68 kg/m??. Physical Exam Vitals and nursing note reviewed. Constitutional: General: She is not in acute distress. HENT: Head: Normocephalic. Cardiovascular: Rate and Rhythm: Normal rate and regular rhythm. Heart sounds: Normal heart sounds. Pulmonary: Effort: Pulmonary effort is normal. No respiratory distress. Breath sounds: Normal breath sounds. Abdominal: General: Bowel sounds are normal. Palpations: Abdomen is soft. Tenderness: There is no abdominal tenderness. Hernia: A hernia is present. Comments: Ventral hernia Musculoskeletal: Comments: S/p right AKA Now s/p left AKA--wrapped Skin: General: Skin is warm and dry. Neurological: Mental Status: She is alert and oriented to person, place, and time. Psychiatric: Mood and Affect: Mood normal. Current Medications: Current Facility-Administered Medications Medication Dose Route Frequency Provider Last Rate Last Admin ??? acetaminophen (TYLENOL) tablet 650 mg 650 mg oral Q4H PRN Harlan Salamanca MD 650 mg at 06/24/20 0508 ??? amLODIPine (NORVASC) tablet 10 mg 10 mg oral Daily Harlan Salamanca MD 10 mg at 06/24/20 0904 ??? dextrose (GLUTOSE) 40 % gel 15 g 15 g oral Q15 Min PRN Harlan Salamanca MD Or ??? dextrose (D10W) 10% bolus 250 mL 250 mL intravenous Q15 Min PRN Harlan Salamanca MD ??? enoxaparin (LOVENOX) syringe 40 mg 40 mg subcutaneous Daily-2099 Harlan Salamanca MD 40 mg at06/23/202204 ??? gabapentin (NEURONTIN) capsule 400 mg 400 mg oral BID Summer Anguiano MD 400 mg at ??? glucagon injection 1 mg 1 mg intramuscular Q30 Min PRN Harlan Salamanca MD ??? HYDROmorphone (DILAUDID) injection 0.5 mg 0.5 mg intravenous Q4H PRN Harlan Salamanca MD 0.5 mg at 06/22/20 0006 ??? insulin glargine (LANTUS) 100 unit/mL injection 7 Units 7 Units subcutaneous QAM DavidA. Salamanca MD 7 Units at 06/24/20 0904 ??? insulin lispro (HumaLOG, ADMELOG) 100 unit/mL injection 1-2 Units 1-2 Units subcutaneous Nightly Harlan Salamanca MD 1 Units at 06/19/20 2225 ??? insulin lispro (HumaLOG, ADMELOG) 100 unit/mL injection 1-3 Units 1-3 Units subcutaneous TID with meals Harlan Salamanca MD 1 Units at 06/23/20 1133 ??? levothyroxine (SYNTHROID) tablet 100 mcg 100 mcg oral Daily - 0600 Harlan Salamanca MD 100 mcg at 06/24/20 0558 ??? ondansetron (ZOFRAN) injection 4 mg 4 mg intravenous Q6H PRN Harlan Salamanca MD ??? oxyCODONE (ROXICODONE) tablet 5 mg 5 mg oral Q4H PRN Harlan Salamanca MD 5 mg at 06/24/20 1316 ??? pantoprazole (PROTONIX) injection 40 mg 40 mg intravenous BID Harlan Salamanca MD 40 mg at 06/24/20 0905 ??? sodium chloride 0.9% flush 0.5-20 mL 0.5-20 mL intra-catheter Q8H Harlan Spangler MD 10 mL at 06/24/20 0603 ??? sodium chloride 0.9% flush 0.5-20 mL 0.5-20 mL intra-catheter PRN Harlan Salamanca MD ??? sodium chloride 0.9% flush 0.5-20 mL 0.5-20 mL intra-catheter Q8H KASIE Harlan Salamanca MD 10 mL at 06/24/20 0603 ??? sodium chloride 0.9% flush 0.5-20 mL 0.5-20 mL intra-catheter Harlan Montano MD Lab/Radiology/Diagnostic Review: CBC: Recent Labs Lab Units 06/24/20 0538 06/23/20 0601 06/23/20 0012 06/22/20 1233 06/22/20 0352 WBC K/cumm 11.1* 12.8* -- -- 8.8 HEMOGLOBIN g/dL 7.6* 7.2* 7.3* 7.0* < > 8.5* HEMATOCRIT % 23.1* 21.2* 21.5* 20.6* < > 25.1* PLATELETS K/cumm 248 208 -- -- 195 NEUTROS PCT % 68.1 72.5 -- -- 71.7 LYMPHS PCT % 19.8 16.9 -- -- 17.0 MONOS PCT % 5.0 4.1 -- -- 4.6 EOS PCT % 1.8 2.2 -- -- 1.4 < > = values in this interval not displayed. CMP: Recent Labs Lab Units 06/24/20 1133 06/24/20 0750 06/24/20 0538 06/22/20 0907 06/22/20 0352 06/21/20 2221 06/21/20 2221 SODIUM mmol/L -- -- 137 -- 137 -- 137 POTASSIUM PLASMA mmol/L -- -- 3.7 -- 3.7 -- 4.0 CHLORIDE mmol/L -- -- 97 -- 97 -- 98 CO2 mmol/L -- -- 30 -- 29 -- 33* ANIONGAP mmol/L -- -- 10 -- 11 -- 6 GLUCOSE mg/dL -- -- 96 -- 102 < > 162 POC GLUCOSE MONITOR mg/dL 112 123 -- < > -- -- -- BUN SERUM mg/dL -- -- 10 -- 18 -- 19 CREATININE mg/dL -- -- 0.60 -- 0.65 -- 0.65 CALCIUM mg/dL -- -- 8.3* -- 8.8 -- 8.9 ALBUMIN g/dL -- -- -- -- 3.6 -- 3.7 < > = values in this interval not displayed. Radiology: XR Foot Left 3 or More Views Result Date: 06/16/2020 Narrative: EXAMINATION: XR FOOT LEFT 3 OR MORE VIEWS HISTORY: Left leg pain, concern for osteomyelitis FINDINGS: 3 nonweightbearing views of the left foot are submitted with comparison to radiographsdated 11/06/2019. The bones are osteopenic. 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 No evidence of fracture. There are dense atherosclerotic calcifications. There has been interval worsening erosion of the posterior calcaneus, most prominently near the Achilles insertion. There is an overlying soft tissue ulcer. Heterotopic ossification is noted at the base of the calcaneus and in the region of osseous erosion. Impression: 1. Progressive erosion of the posterior calcaneus since 11/06/2019 with probable acute osteomyelitis of the posterosuperior calcaneus near the Achilles insertion with overlying soft tissue ulceration Electronically signed by: Navya Oliva M.D. CT Head WO Contrast Result Date: 06/16/2020 Narrative: Exam: CT HEAD WO CONTRAST Date/Time of Exam: 06/16/2020 5:35 PM Reason For Exam: AMS. Diagnosis: Acute alteration of mental status. Findings: Axial images of the head were obtained without the use of contrast material. Sagittal and coronal reformats generated. Note is made that the patientreceived intravenous contrast material for CT examination of the abdomen performed earlier the sameday. No prior comparisons available. There are no signs of an intracranial mass lesion or mass effect. No signs of acute intracranial hemorrhage or acute segmental infarction the brain. The ventricles are normal in size. The sulci and cisterns are patent. There are benign calcifications in the basal ganglia bilaterally. Benign dural calcifications are present. Vascular calcifications are evident in the carotid siphons and distal vertebral arteries. The calvarium appears to be intact. The visualized paranasal sinus cavities are clear. The mastoid air cells are clear. Impression: 1. No acute intracranial process identified. 2. Mild diffuse atrophy of the brain. 3. Benign basal ganglia calcifications symmetrically. 4. Atherosclerotic calcification of the carotid siphons and distal vertebral arteries. Electronically signed by: Kenny Fabian M.D. CT Abdomen Pelvis W Contrast Result Date: 06/16/2020 Narrative: CT abdomen and pelvis with contrast HISTORY: Abdominal pain. Incarcerated hernia. TECHNIQUE: CT abdomen and pelvis was done with contrast 95 mL Optiray 350 intravenously. FINDINGS: Comparison outside CT of 11/08/2019. There is a rounded mass in the right breast incompletely included. Likely a fluid density. Clinical correlation recommended. There is atherosclerosis which is especially severe in the coronary arteries. There is large amount of pericardial fluid. Correlation with echocardiogram recommended. Mild pleural and parietal opacities at the lung bases. Size of the spleen is normal. Bilateral adrenal glands are normal. No definite solid renal mass. No definite hydronephrosis. Mild hepatic steatosis. Abnormally distended gallbladder. Consider correlation with sonogram. Moderate colonic. No definite evidence of pancreatitis or pancreatic mass. Fecal impaction with large amount of stool in the rectum. Mild diffuse bladder wall thickening. There is a large well-defined fluid density mass in the anterior abdominal wall intimately associated with prior anterior abdominal wall surgery site. Greatest transverse dimension nearly 11 cm across. Similar to prior study. Mild diffuse bladder wall thickening. Correlation with urinalysis recommended. No definite acute fractures a ppreciated. There are multiple patchy lucencies throughout the thoracic and lumbar spine of uncertain significance. Previously described as well either unchanged or minimally more prominent. Slightlydifferent techniques between the 2 CT scans. Clinical and lab correlation recommended. Consider MRIthoracic and lumbar spine. Impression: 1. Rounded mass density in the right breast incompletely included. Clinical correlationrecommended. 2. Large amount of pericardial fluid. Correlation with echocardiogram recommended. 3. Distended gallbladder. Clinical correlation recommended. 4. Fecal impaction. 5. Large fluid density mass in the anterior abdominal wall intimately associated with prior surgical site. Chronic and stable from prior study. 6. Patchy lucencies in the vertebral bodies as previously described and either unchanged or perhaps slightly more prominent or slightly increased. Recommended clinical and lab correlation and MRI thoracic and lumbar spine. 7. Additional details above. Electronically signed by: Aram Pederson M.D. XR Chest 1 Vw Portable Result Date: 06/16/2020 Narrative: Portable chest HISTORY: Fever. FINDINGS: An AP upright lordotic radiograph of the chest obtained essentially in expiration is compared to a previous examination 11/22/2019. Comparison is also made to a CT examination of the abdomen performed earlier this afternoon. The heart size is mildly enlarged. This is shown to reflect a moderately large pericardial effusion on the patient's CT examination. The left lung base is poorly penetrated/assessed. The CT study demonstrates only some minimal atelectasis at the left lung base and no pleural fluid. The right lung is clear. Impression: 1. Enlarged cardiac silhouette shown in large part reflect the presence of a moderatelylarge pericardial effusion on concurrently performed computed tomography. 2. The left lung base is not well penetrated/assessed on this radiograph. However, the CT study demonstrates only some minimal atelectasis at the left lung base and no left pleural fluid. The right lung is clear. Electronically signed by: Tomi Urena M.D. A/P Labs and radiology findings were personally reviewed by me. 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 S/p AKA On gabapentin 400 BID possible gastric ischemia with spontaneous GI perforation causing hematemesis Hematemesis now resolved; hgb stable Advanced diet Not felt to be an operative candidate Type 2 DM - A1c 8.6. On sliding scale and morning Lantus; stable ?? Essential HTN - norvasc PVD/ Celiac stenosis ?? Acquired Hypothyroidism - synthroid increased ?? Dementia - A&Ox2 currently COVID 19 recovered Medical decision making: moderate DVT PROPHYLAXIS with Lovenox Summer Anguiano MD 06/24/2020 * Kaitlin Vallejo, OT - 06/24/2020 1:19 PM CDT Occupational Therapy 06/24/20 1319 General Chart Reviewed Yes Session Type Evaluation OT Received On 06/24/20 Safe Environment Arm Band Checked;Chair Alarm placed and activated;Call Light within Reach;NotifiedRN Subjective Agreeable to Therapy Additional Pertinent History Pt is a 65yo F with PMHx sig for dementia, HTN, DMII, HLD, osteomyelitis, R AKA, ventral hernia. Pt admitted 06/16 via EMS with concern for osteomyelitis. Of note pt was onhospice for osteomyelitis, but then the infection improved and the patient was taken off hospice. Pt is now s/p L AKA 06/19. Developed hematemesis, possible gastric ischemia with spontaneous GI perf and fecal impaction. Deemed not a surgical candidate. EGD on 06/22 was cancelled. Family/Caregiver Present No Precautions Precautions Bed/Chair Alarm;Fall risk;Safety Home Living Type of Home Apartment Home Layout One level Home Access Stairs to enter with rails Bathroom Accessibility Not accessible Additional Comments Pt is a questionable historian. Pt reports daughter and hospice staff was previously assisting her with functional transfers to and from bed to hospice chair using amisha lift. Both lift and hospice chair were taken with hospice staff at their discharge. Pt reports she is supposed to be getting a wheelchair from a family friend. 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 Hospice staff completed bathing 2x/week. workers compensation legal secretary 4 hours day Monday-Monday that completed cleaning and brought TV dinners. Reports daughter assists with dressing. Daughter works during the day Feeding Feeding: Where assessed Chair Feeding: Level of assistance Standby assist (Set up) Pain Assessment Pain Assessment 0-10 Pain Score 5 - Moderate pain Pain Type Surgical pain Pain Location Leg Pain Orientation Left Pain Frequency Constant/continuous Clinical Progression Not changed Pain Interventions Repositioned;Rest;RN Notified Cognition Overall Cognitive Status Impaired Arousal/Alertness Alert Attention Span Attends with cues to redirect Orientation Oriented X4 (person, place, time, situation) (Pt did not know exact date, but knew month and year) Compliance/Behavior Easy to engage Bed Mobility 1 Bed Mobility Comments 1 Supine>rolling R>rolling L maximal assist 1-2 for force production. Verbal cues for sequencing and reaching across body with BUEs. Once sidelying pt holds self using bedrail CGA-minimal assist. Bed Mobility 2 Bed Mobility Comments 2 Supine<>sitting EOB maximal assistx2 for force production of trunk, hips, and BLE management. HOB flat. Verbal cues for sequencing. Upon sitting EOB pt initially requires maximal assistx2 and minimal assistx1 for posterior lean due to LLE pain, but pt progresses to moderate assistx1 and minimal assistx1. Pt sits EOB approx 10 mins. Transfer 1 Trials/Comments 1 Bed>arevalo chair using reposition sling and manual amisha lift dependently Other Comments Comments BP 130/69, HR 83, O2 97% on room air. Pt left seated in arevalo chair with all needs met and chair alarm checked and engaged at end of session. Pt educated on using call light Assessment Prognosis Good Problem List Decreased endurance;Decreased balance;Decreased functional mobility;Decreased ADL independence;Decreased IADL independence;Decreased cognition;Decreased safe judgment during ADL Barriers to Discharge Current Mobility Status Plan Plan Plan of care initiated;If this is the last note, consider this the discharge summary Recommendation/Plan OT Recommendation [facility] OT Frequency 3-5x/wk Treatment/Interventions ADL/IADL retraining;Balance Training;Endurance training;Functional activity;Functional mobility training;Functional transfer training;Parent/caregiver training and education;Strengthening;Therapeutic activity;Therapeutic exercise OT Equipment Recommended (will continue to assess) Progress Progressing toward goals OT Evaluation Complete Yes Multi-Disciplinary Problems (from Occupational Therapy) Active Problems Problem: OT [facility] Start Date: 06/24/20 Goal Start Date End Date [facility] 1 06/24/20 -- Goal Details: Pt will complete toileting tasks and toilet transfer moderate assist Goal Start Date End Date [facility] 2 06/24/20 -- Goal Details: Pt will complete grooming tasks at sink moderate assist Goal Start Date End Date [facility] 3 06/24/20 -- Goal Details: Pt will complete UB dressing minimal assist Goal Start Date End Date [facility] 4 06/24/20 -- Goal Details: Pt will complete object retrieval from varying heights modified independent to simulate ADLs and IADLs Education: Patient has been educated on the role of OT, safety, ADL training, mobility training andbody mechanics. Education completed via verbal instruction and return demonstration. Patient verbalized understanding, demonstrated understanding and needs ongoing reinforcement * Genesis Boateng DPT - 06/24/2020 1:08 PM CDT Physical Therapy Evaluation 06/24/20 1308 General Chart Reviewed Yes Session Type Evaluation PT Received On 06/24/20 Safe Environment Arm Band Checked;Bed Alarm placed and activated;Chair Alarm placed and activated;Call Light within Reach;Notified RN;Session Completed Bedside;Patient found in Supine;Overbed Table within Reach;Bed in Lowest Position with Wheels locked;Bed rails up per protocol Subjective Agreeable to Therapy Subjective Comment Pt reports 5/10 pain in left LE at beginning, during, and at end of PT session. RN notified and pt was given pain meds at beginning of session. PT and OT performed co-evaluation tomaximize safety with functional mobility. Additional Pertinent History Pt is a 65yo F with PMHx sig for dementia, HTN, DMII, HLD, osteomyelitis, R AKA, ventral hernia. Pt admitted 06/16 via EMS with concern for osteomyelitis. Of note pt was onhospice for osteomyelitis, but then the infection improved and the patient was taken off hospice. Pt is now s/p L AKA 06/19. Developed hematemesis, possible gastric ischemia with spontaneous GI perf and fecal impaction. Deemed not a surgical candidate. EGD on 06/22 was cancelled. Family/Caregiver Present No Precautions Precautions Bed/Chair Alarm;Fall risk;Safety Home Living Type of Home Apartment Home Layout One level Home Access Other (Comment) (pt states some stairs to enter; unsure of how many or rails) Bathroom Accessibility Not accessible (pt states can't get into bathroom in her chair at home) Home Mobility Equipment (pt had amisha + hospice chair - both taken back by hospice ) Home ADL Equipment Other (Comment) (unsure) Additional Comments Pt reports she transferred via amisha lift to a chair at home that hospice provided which didn't have wheels. Pt has no DME, no WC even, and pt states she can't get into the bathroom so hospice was bathing her 2x/week and pt toilets in diapers which her daughter Lindy then changes for her. Pt is not a completely reliable historian. Pt states she is supposed to be getting a WC f rom a family friend. 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 Hospice staff completed bathing 2x/week. workers compensation legal secretary 4 hours day Monday-Monday that completed cleaning and brought TV dinners. Reports daughter assists with dressing. Daughter works during the day. Pt was non- ambulatory and used amisha lift for transfers after the right AKA in Nov 2019. Pt has assist with all ADLs and total assist w/ all IADLs. Activity Tolerance Endurance Tolerates 30 min activity with multiple rests Activity Tolerance Comments BP 130/69, HR 83, O2 97% on room air. Pt left seated in arevalo chair with all needs met and chair alarm checked and engaged at end of session. Pt educated on using call light. RN notified that pt up in chair and to use Prism amisha w/ repositioning sling to safely transfer back to bed when needed. Welder Fitter Apprentice was also contacted and will be available to assist nursing as able with transfers and can further guide staff nuclear weapons officer with pt safety. Pain Assessment Pain Assessment 0-10 Pain Score 5 - Moderate pain Patient's Stated Pain Goal No pain Pain Type Surgical pain Pain Location Leg Pain Orientation Left Pain Descriptors Aching;Sharp;Shooting;Sore;Throbbing;Tender Pain Frequency Constant/continuous Pain Onset Ongoing Clinical Progression Not changed Pain Interventions Medication (See MAR);Repositioned;RN Notified;Rest Cognition Overall Cognitive Status Impaired Orientation Oriented X4 (person, place, time, situation) Compliance/Behavior Easy to engage Endurance Deficit Endurance Deficit Yes Balance Balance Yes Static Sitting Balance Static Sitting-Balance Support Bilateral upper extremity supported;Feet unsupported Static Sitting-Sitting Surface Bed Static Sitting-Level of Assistance Moderate assistance;Maximum assistance Static Sitting-Comment/# of Minutes Pt sat EOB x10 minutes w/ BRENDON UE support, mod-max assist from OT for posterior trunk support, and minimum assist from PT for anterior support and safety at surfaceedge. Bed Mobility Bed Mobility Yes Bed Mobility 1 Bed Mobility Comments 1 pt rolls BRENDON with max assist of 1-2 with BRENDON bedrails, supine<-->sit EOB with max assist x2 + bedrail, pt sits EOB x10 minutes with mod-max assist x1 + minimum assist of2nd person w/ BRENDON UE support and mattress deflated for safety/stability Transfers Transfer Yes Transfer 1 Trials/Comments 1 pt transfers bed-->Arevalo chair with total assist via repositioning sling using portable Prism amisha lift device, pt positioned as upright in Arevalo chair as she could tolerate w/ the pain and then tilted pt back approx 10 degrees to improve safety due to decreased trunk control (chair alarm placed and activated w/ call light + all needs in reach and pt educated to call RN for all needs first) Ambulation Ambulation No Ambulation 1 Ambulation Comments 1 not applicable - pt is BRENDON AKA Stairs Stairs No Stair Comments not applicable RLE Assessment RLE Assessment X Strength RLE R Hip Flexion 2-/5 R Hip ABduction 1/5 R Hip ADduction 2-/5 LLE Assessment LLE Assessment X (not formally assessed due to pain; observed w/ mobility) Strength LLE L Hip Flexion 2-/5 L Hip ABduction 1/5 L Hip ADduction 2-/5 Other Comments Other PT Comments Upon evaluation, pt demonstrates increased pain and edema in left LE, impaired cognition, impaired bed mobility, impaired sitting balance, greatly impaired transfers, inability to stand or ambulate due to BRENDON AKA status, and decreased activity tolerance and endurance. Pt would benefit from continued PT services to address deficits, improve functional mobility, aid in return to OF, and prepare her for a safe discharge when medically appropriate. Assessment Prognosis Fair Problem List Decreased strength;Decreased range of motion;Decreased endurance;Impaired balance;Decreased mobility;Decreased cognition;Decreased safety awareness;Obesity;Pain;Postural deficit;Edema;Decreased handling tolerance;Decreased ADLs Barriers to Discharge Current Mobility Status;Inaccessible home environment;Decreased caregiver support;Cognition;Decreased safety awareness Barriers to Discharge Comments Pt states she has stairs to enter her home, but I am unsure if this is accurate, as pt has been WC bound since Nov 2019. Pt does not have 24/7 care in the home. Plan Plan Plan of care initiated;If this is the last note, consider this the discharge summary Recommendation/Plan PT Recommendation/Plan [facility] PT Frequency 3-5x/wk Treatment/Interventions Balance Training;Bed mobility;Endurance training;Equipment eval/education;Functional activity;Functional transfer training;Midline orientation;Neuromuscular re-education;Parent/caregiver training and education;Range of motion;Strengthening;Therapeutic activity;Therapeutic exercise;Transfer training;UE motor function/functional skills;Wheelchair mobility/management PT Equipment Recommended Other (Comment) (further assessment required pending pt progress w/ mobility) Progress Slow progress, decreased activity tolerance PT - OK to Discharge No PT Evaluation Complete Yes Education: Patient has been educated on the role of PT, safety , precautions and mobility training.Education completed via explanation. Patient verbalized understanding, demonstrated understanding and needs ongoing reinforcement. Multi-Disciplinary Problems (from Physical Therapy) Active Problems Problem: PT [facility] Start Date: 06/24/20 Goal Start Date End Date PT [facility] 1 06/24/20 -- Goal Details: Pt will roll BRENDON with minimum assist and BRENDON bedrails for trunk support. Goal Start Date End Date PT [facility] 2 06/24/20 -- Goal Details: Pt will supine<-->sit EOB with minimum to mod assist x1 + bedrail for trunk support. Goal Start Date End Date PT [facility] 3 06/24/20 -- Goal Details: Pt will sit EOB x10 minutes w/ SBA to CGA x1 w/ BRENDON UE support for safety. Goal Start Date End Date [facility] 4 06/24/20 -- Goal Details: Pt will perform lateral scooting (side to side) on EOB with minimum to mod assist x1 (to strengthen hips and core in preparation for transfer training via slide board or posterior/anterior scooting bed<-->WC). Goal Start Date End Date [facility] 5 06/24/20 -- Goal Details: Pt will perform post-op AKA HEP w/ minimum assist in the bed and rest breaks as needed, BRENDON LE x15. * Arley Peña MD - 06/24/2020 11:43 AM CDT Dictated, Can Be discharged, Will DC Zosyn. No indication. * Twyla Juan, LORENZO- - 06/24/2020 9:50 AM CDT INPATIENT MUSIC THERAPY EVALUATION & TREATMENT Time In: 919 Time Out: 949 TYPE OF SESSION/NOTE: Music Therapy Assessment Session and Progress/Treatment Hospital Unit: Surgical Referred By: Physical Therapy on 06/23/2020 Reason for Referral: pain, cognitive stimulation and relaxation Referral Status: patient seen this date Isolation Precautions: Contact - modified (VRE, MRSA) SUBJECTIVE: Patient resting in bed upon approach, agreeable to music therapy services. Patient pleasant and participatory during pursed lip breathing exercises embedded within live music. Patient demonstrates a positive response to music this date. Patient at [facility] secondary to osteomyelitis in leftLE. Patient with hx of DM, peripheral vascular disease, and dementia per chart review. PT on 06/23 and 06/24 reports patient has a high level of pain, although patient denies pain this morning. Pain Assessment: Pre Treatment Pain Score (0-10): 0/10 Post Treatment Pain Score (0-10): 0/10 Pain Location: not applicable Pain Interventions: previously medicated per RN report Clinical Progression: not assessed / not applicable Patient's Musical History: Instruments Played: no hx / wanted to learn violin Vocal Experience: hx in [employer] choir / enjoys singing Patient's Musical Preferences: Decade(s): Genres: easy listening, popular / no jazz Artists/Groups: none stated Psychosocial History: Family: one daughter, three sons, several grandchildren and great-grandchildren (ages 11 months - 11 years) 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) Leisure: watching television Yarsanism/Spiritual: [employer] OBJECTIVE: Observed Behavior State: easy to engage and alert Cognitive Status: unable to assess, hx of dementia per chart review Interventions Used: Patient preferred music, therapeutic singing, iso- principle/entrainment, pulmonary exercises to music, patterned sensory cues, counseling techniques: validation and empathy, musiclistening and song choice Instruments / Materials Used: guitar and voice Role of Music: temporal cues, spatial cues, offer structure, offer familiarity, to engage and provide comfort Songs Used in Therapy:__4__ Song 1: I Can See Clearly Now (pursed lip breathing, 6 reps) Song 2: Stand By Me (pursed lip breathing, 7 reps) Song 3: My Girl (pursed lip breathing, 6 reps) Song 4: Lean On Me (pursed lip breathing, 6 reps) PRE-TREATMENT VITALS: POST-TREATMENT VITALS: SPO2: 96% SPO2: 96% HR: 77 bpm HR: 75 bpm Education: Patient was educated on the purpose of music therapy in the hospital setting and treatment areas/goals addressed during therapy sessions. Education completed via explanation and demonstration. Patient verbalized understanding and needs ongoing reinforcement. ASSESSMENT: Patient's Response to Music: positive sang along to entire song, decreased muscle tension, engaged in conversation, positive verbalizations, positive facial affect, improved vitals and initiation of social interaction Areas of Need Upon Assessment: Increase: active engagement in environment, autonomy and control, mood, psychosocial functioning, relaxation, respiratory comfort/endurance, quality of life and social engagement Decrease: situational anxiety PLAN OF CARE: Multi-Disciplinary Problems (from [place] [facility]) Active Problems Problem: [facility] Start Date: 06/24/20 Goal Start Date End Date [facility] 1 06/24/20 -- Goal Details: Patient will increase pulmonary function by completing various exercises with SPO2 at=/> 92% or by increasing SPO2 by =/>1% in at least one music therapy session prior to discharge Goal Start Date End Date [facility] 2 06/24/20 -- Goal Details: Patient will demonstrate signs of mood elevation/increased relaxation/decreased anxiety (brightened facial affect, decreased muscle tension, positive verbalizations, improved vital signs, etc.) in at least one music therapy session prior to discharge Frequency of Sessions: PRN Continue music therapy for psychosocial support and any other comfort needs that may arise during length of stay. If last note, consider discharge summary. * Genesis Boateng DPT - 06/24/2020 9:20 AM CDT Physical Therapy 06/24/20 0920 General Session Type Evaluation PT Received On 06/24/20 PT Missed Visit Reason With other staff/receiving another service;Unavailable (PT w/ music therapist; PT will try back later as time allows) * Summer Anguiano MD - 06/23/2020 3:47 PM CDT General Medicine Daily Progress CC: leg pain Subjective The pt c/o leg pain today. She is s/p left AKA No n/v. No shortness of breath. No chest pain. No abd pain Did not want to do therapy today because of leg pain. Will increase pain medication. Objective Vitals: 24hr Min/Max: Temp Min: 36.8 ??C (98.3 ??F) Max: 37.8 ??C (100.1 ??F) Pulse Min: 72 Max: 77 BP Min: 113/65 Max: 154/67 Resp Min: 10 Max: 16 SpO2 Min: 95 % Max: 100 % Most Recent : Vitals: 06/23/20 1147 BP: 133/84 Pulse: 77 Resp: 16 Temp: 37.1 ??C (98.8 ??F) SpO2: 100% I/O last 2 completed shifts: In: 1180 [P.O.:870; I.V.:310] Out: 1025 [Urine:1025] I/O this shift: In: 8 [P.O.:8] Out: 350 [Urine:350] Body mass index is 70.68 kg/m??. Physical Exam Vitals and nursing note reviewed. Constitutional: General: She is not in acute distress. HENT: Head: Normocephalic. Cardiovascular: Rate and Rhythm: Normal rate and regular rhythm. Heart sounds: Normal heart sounds. Pulmonary: Effort: Pulmonary effort is normal. No respiratory distress. Breath sounds: Normal breath sounds. Abdominal: General: Bowel sounds are normal. Palpations: Abdomen is soft. Tenderness: There is no abdominal tenderness. Hernia: A hernia is present. Comments: Ventral hernia Musculoskeletal: Comments: S/p right AKA Now s/p left AKA--wrapped Skin: General: Skin is warm and dry. Neurological: Mental Status: She is alert and oriented to person, place, and time. Psychiatric: Mood and Affect: Mood normal. Current Medications: Current Facility-Administered Medications Medication Dose Route Frequency Provider Last Rate Last Admin ??? acetaminophen (TYLENOL) tablet 650 mg 650 mg oral Q4H PRN Harlan Salamanca MD 650 mg at 06/22/20 1810 ??? amLODIPine (NORVASC) tablet 10 mg 10 mg oral Daily Harlan Salamanca MD 10 mg at 06/23/20 0812 ??? dextrose (GLUTOSE) 40 % gel 15 g 15 g oral Q15 Min PRN Harlan Salamanca MD Or ??? dextrose (D10W) 10% bolus 250 mL 250 mL intravenous Q15 Min PRN Harlan Salamanca MD ??? [Held by Provider] enoxaparin (LOVENOX) syringe 40 mg 40 mg subcutaneous Daily-2100 Harlan Salamanca MD 40 mg at 06/20/202017 ??? gabapentin (NEURONTIN) capsule 300 mg 300 mg oral BID Harlan Salamanca MD 300 mg at 06/23/20 0812 ??? glucagon injection 1 mg 1 mg intramuscular Q30 Min PRN Harlan Salamanca MD ??? HYDROmorphone (DILAUDID) injection 0.5 mg 0.5 mg intravenous Q4H PRN Harlan Salamanca MD 0.5 mg at 06/22/20 0006 ??? insulin glargine (LANTUS) 100 unit/mL injection 7 Units 7 Units subcutaneous QAM DavidA. Salamanca MD 7 Units at 06/23/20 0813 ??? insulin lispro (HumaLOG, ADMELOG) 100 unit/mL injection 1-2 Units 1-2 Units subcutaneous Nightly Harlan Salamanca MD 1 Units at 06/19/20 2225 ??? insulin lispro (HumaLOG, ADMELOG) 100 unit/mL injection 1-3 Units 1-3 Units subcutaneous TID with meals Harlan Salamanca MD 1 Units at 06/23/20 1133 ??? levothyroxine (SYNTHROID) tablet 100 mcg 100 mcg oral Daily - 0600 Harlan Salamanca MD 100 mcg at 06/23/20 0548 ??? ondansetron (ZOFRAN) injection 4 mg 4 mg intravenous Q6H PRN Striker, Jesus., MD ??? oxyCODONE (ROXICODONE) tablet 5 mg 5 mg oral Q4H PRN Harlan Salamanca MD 5 mg at 06/23/20 1137 ??? pantoprazole (PROTONIX) injection 40 mg 40 mg intravenous BID Harlan Salamanca MD 40 mg at 06/23/20 0812 ??? piperacillin-tazobactam (ZOSYN) 4.5 gram/100 mL in dextrose (premix) 4.5 g 4.5 g intravenous Q6H KASIE Harlan Salamanca MD 200 mL/hr at 06/23/208 4.5 g at 06/23/20 1138 ??? sodium chloride 0.9% flush 0.5-20 mL 0.5-20 mL intra-catheter Q8H Harlan Spangler MD 10 mL at 06/22/202000 ??? sodium chloride 0.9% flush 0.5-20 mL 0.5-20 mL intra-catheter PRN Harlan Salamanca MD ??? sodium chloride 0.9% flush 0.5-20 mL 0.5-20 mL intra-catheter Q8H Harlan Spangler MD 10 mL at 06/22/202000 ??? sodium chloride 0.9% flush 0.5-20 mL 0.5-20 mL intra-catheter PRN Harlan Salamanca MD Lab/Radiology/Diagnostic Review: CBC: Recent Labs Lab Units 06/23/20 0601 06/23/20 0012 06/22/20201106/22/20 1233 06/22/20 0352 06/21/20 2221 06/21/20 2221 06/21/20 1908 06/21/20 0558 WBC K/cumm 12.8* -- -- -- 8.8 -- 9.9 -- 6.9 HEMOGLOBIN g/dL 7.2* 7.3* 7.0* 7.0* < > 8.5* < > 8.7* < > 6.1* HEMATOCRIT % 21.2* 21.5* 20.6* 20.6* < > 25.1* < > 25.5* < > 18.8* PLATELETS K/cumm 208 -- -- -- 195 -- 176 -- 191 NEUTROS PCT % 72.5 -- -- -- 71.7 -- -- -- 68.2 LYMPHS PCT % 16.9 -- -- -- 17.0 -- -- -- 21.7 MONOS PCT % 4.1 -- -- -- 4.6 -- -- -- 5.8 EOS PCT % 2.2 -- -- -- 1.4 -- -- -- 2.5 < > = values in this interval not displayed. CMP: Recent Labs Lab Units 06/23/20 1132 06/23/20 0606 06/22/20201106/22/20 0907 06/22/20 0352 06/21/20222006/21/20222006/19/20 0556 06/19/20 0550 06/17/20 0645 06/17/20 0637 SODIUM mmol/L -- -- -- -- 137 -- 137 -- 135 < > 136 POTASSIUM PLASMA mmol/L -- -- -- -- 3.7 -- 4.0 -- 3.9 < > 3.1* CHLORIDE mmol/L -- -- -- -- 97 -- 98 -- 97 < > 95* CO2 mmol/L -- -- -- -- 29 -- 33* -- 30 < > 32 ANIONGAP mmol/L -- -- -- -- 11 -- 6 -- 8 < > 9 GLUCOSE mg/dL -- -- -- -- 102 < > 162 < > 184 < > 170 POC GLUCOSE MONITOR mg/dL 180* 76 90 < > -- -- -- < > -- < > -- BUN SERUM mg/dL -- -- -- -- 18 -- 19 -- 16 < > 18 CREATININE mg/dL -- -- -- -- 0.65 -- 0.65 -- 0.63 < > 0.89 CALCIUM mg/dL -- -- -- -- 8.8 -- 8.9 -- 8.6 < > 8.6 ALBUMIN g/dL -- -- -- -- 3.6 -- 3.7 -- -- -- 3.5 ALK PHOS Units/L -- -- -- -- -- -- -- -- -- -- 27* ALT Units/L -- -- -- -- -- -- -- -- -- -- 25 AST Units/L -- -- -- -- -- -- -- -- -- -- 33 BILIRUBIN TOTAL mg/dL -- -- -- -- -- -- -- -- -- -- 0.6 < > = values in this interval not displayed. Coagulation: Recent Labs Lab Units 06/17/20 0637 APTT sec 32 INR 1.3* Radiology: XR Foot Left 3 or More Views Result Date: 06/16/2020 Narrative: EXAMINATION: XR FOOT LEFT 3 OR MORE VIEWS HISTORY: Left leg pain, concern for osteomyelitis FINDINGS: 3 nonweightbearing views of the left foot are submitted with comparison to radiographsdated 11/06/2019. The bones are osteopenic. 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 No evidence of fracture. There are dense atherosclerotic calcifications. There has been interval worsening erosion of the posterior calcaneus, most prominently near the Achilles insertion. There is an overlying soft tissue ulcer. Heterotopic ossification is noted at the base of the calcaneus and in the region of osseous erosion. Impression: 1. Progressive erosion of the posterior calcaneus since 11/06/2019 with probable acute osteomyelitis of the posterosuperior calcaneus near the Achilles insertion with overlying soft tissue ulceration Electronically signed by: Navya Oliva M.D. CT Head WO Contrast Result Date: 06/16/2020 Narrative: Exam: CT HEAD WO CONTRAST Date/Time of Exam: 06/16/2020 5:35 PM Reason For Exam: AMS. Diagnosis: Acute alteration of mental status. Findings: Axial images of the head were obtained without the use of contrast material. Sagittal and coronal reformats generated. Note is made that the patientreceived intravenous contrast material for CT examination of the abdomen performed earlier the sameday. No prior comparisons available. There are no signs of an intracranial mass lesion or mass effect. No signs of acute intracranial hemorrhage or acute segmental infarction the brain. The ventricles are normal in size. The sulci and cisterns are patent. There are benign calcifications in the basal ganglia bilaterally. Benign dural calcifications are present. Vascular calcifications are evident in the carotid siphons and distal vertebral arteries. The calvarium appears to be intact. The visualized paranasal sinus cavities are clear. The mastoid air cells are clear. Impression: 1. No acute intracranial process identified. 2. Mild diffuse atrophy of the brain. 3. Benign basal ganglia calcifications symmetrically. 4. Atherosclerotic calcification of the carotid siphons and distal vertebral arteries. Electronically signed by: Kenny Fabian M.D. CT Abdomen Pelvis W Contrast Result Date: 06/16/2020 Narrative: CT abdomen and pelvis with contrast HISTORY: Abdominal pain. Incarcerated hernia. TECHNIQUE: CT abdomen and pelvis was done with contrast 95 mL Optiray 350 intravenously. FINDINGS: Comparison outside CT of 11/08/2019. There is a rounded mass in the right breast incompletely included. Likely a fluid density. Clinical correlation recommended. There is atherosclerosis which is especially severe in the coronary arteries. There is large amount of pericardial fluid. Correlation with echocardiogram recommended. Mild pleural and parietal opacities at the lung bases. Size of the spleen is normal. Bilateral adrenal glands are normal. No definite solid renal mass. No definite hydronephrosis. Mild hepatic steatosis. Abnormally distended gallbladder. Consider correlation with sonogram. Moderate colonic. No definite evidence of pancreatitis or pancreatic mass. Fecal impaction with large amount of stool in the rectum. Mild diffuse bladder wall thickening. There is a large well-defined fluid density mass in the anterior abdominal wall intimately associated with prior anterior abdominal wall surgery site. Greatest transverse dimension nearly 11 cm across. Similar to prior study. Mild diffuse bladder wall thickening. Correlation with urinalysis recommended. No definite acute fractures a ppreciated. There are multiple patchy lucencies throughout the thoracic and lumbar spine of uncertain significance. Previously described as well either unchanged or minimally more prominent. Slightlydifferent techniques between the 2 CT scans. Clinical and lab correlation recommended. Consider MRIthoracic and lumbar spine. Impression: 1. Rounded mass density in the right breast incompletely included. Clinical correlationrecommended. 2. Large amount of pericardial fluid. Correlation with echocardiogram recommended. 3. Distended gallbladder. Clinical correlation recommended. 4. Fecal impaction. 5. Large fluid density mass in the anterior abdominal wall intimately associated with prior surgical site. Chronic and stable from prior study. 6. Patchy lucencies in the vertebral bodies as previously described and either unchanged or perhaps slightly more prominent or slightly increased. Recommended clinical and lab correlation and MRI thoracic and lumbar spine. 7. Additional details above. Electronically signed by: Aram Pederson M.D. XR Chest 1 Vw Portable Result Date: 06/16/2020 Narrative: Portable chest HISTORY: Fever. FINDINGS: An AP upright lordotic radiograph of the chest obtained essentially in expiration is compared to a previous examination 11/22/2019. Comparison is also made to a CT examination of the abdomen performed earlier this afternoon. The heart size is mildly enlarged. This is shown to reflect a moderately large pericardial effusion on the patient's CT examination. The left lung base is poorly penetrated/assessed. The CT study demonstrates only some minimal atelectasis at the left lung base and no pleural fluid. The right lung is clear. Impression: 1. Enlarged cardiac silhouette shown in large part reflect the presence of a moderatelylarge pericardial effusion on concurrently performed computed tomography. 2. The left lung base is not well penetrated/assessed on this radiograph. However, the CT study demonstrates only some minimal atelectasis at the left lung base and no left pleural fluid. The right lung is clear. Electronically signed by: Tomi Urena M.D. A/P Labs and radiology findings were personally reviewed by me. 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 S/p AKA On gabapentin 300 BID; increase to 400 BID Prior hx of proteus bacteremia during admission in nov 2019. possible gastric ischemia with spontaneous GI perforation causing hematemesis Hematemesis now resolved; hgb stable Advance diet Not felt to be an operative candidate; on Zosyn Type 2 DM - A1c 8.6. On sliding scale and morning Lantus; stable ?? Essential HTN - norvasc PVD/ Celiac stenosis ?? Acquired Hypothyroidism - synthroid increased ?? Dementia - A&Ox2 currently COVID 19 recovered Medical decision making: moderate DVT PROPHYLAXIS with Lovenox Summer Anguiano MD 06/23/2020 * Macie Joe, RD - 06/23/2020 12:45 PM CDT Nutrition Follow-up Progress Note Encounter Date: 06/23/20 12:45 PM Nutrition Progress Summary: Patient is a 65 y.o. female. Admit Dx: OTHER ACUTE OSTEOMYELITIS OF LEFT FOOT (CMS/HCC). Admitted on 06/16/2020. Patient's intake is inadequate. Objective Dietary Orders (From admission, onward) Start Ordered 06/23/20 1120 Oral Nutrition Supplements Select Supplement: Glucerna Shake - [place] 3 times daily Question: Select Supplement: Answer: Glucerna Shake - [place] 06/23/20 1119 06/22/20 1333 Adult Diet Full Liquid Diet effective now Question: ([facility]) Diet type Answer: Full Liquid 06/22/20 1333 Anthropometrics Weight: (!) 174.9 kg (385 lb 9.4 oz) Admission Weight : 74.7 kg Weight Change: 100.19 kg (220.88 lbs) IBW/kg (Calculated) : 49.9 kg Height: 157.5 cm (5' 2.01 ) Weight in (lb) to have BMI = 25: 136.4 BMI (Calculated): 70.5 Intake/Output Summary (Last 24 hours) at 06/23/2020 1245 Last data filed at 06/23/2020 1145 Gross per 24 hour Intake 898 ml Output 875 ml Net 23 ml Medications and Lab Review: Scheduled Meds: amLODIPine, 10 mg, oral, Daily [Held by Provider] enoxaparin, 40 mg, subcutaneous, Daily-2100 gabapentin, 300 mg, oral, BID insulin glargine, 7 Units, subcutaneous, QAM insulin lispro, 1-2 Units, subcutaneous, Nightly insulin lispro, 1-3 Units, subcutaneous, TID with meals levothyroxine, 100 mcg, oral, Daily - 0600 pantoprazole, 40 mg, intravenous, BID piperacillin-tazobactam, 4.5 g, intravenous, Q6H KASIE sodium chloride 0.9%, 0.5-20 mL, intra-catheter, Q8H KASIE sodium chloride 0.9%, 0.5-20 mL, intra-catheter, Q8H KASIE Continuous Infusions: PRN Meds: ??? acetaminophen ??? dextrose OR dextrose ??? glucagon ??? HYDROmorphone ??? ondansetron ??? oxyCODONE ??? sodium chloride 0.9% ??? sodium chloride 0.9% Sodium Date Value Ref Range Status 06/22/2020 137 135 - 145 mmol/L Final Potassium, pl Date Value Ref Range Status 06/22/2020 3.7 3.3 - 4.9 mmol/L Final BUN Date Value Ref Range Status 06/22/2020 18 8 - 25 mg/dL Final Creatinine Date Value Ref Range Status 06/22/2020 0.65 0.60 - 1.10 mg/dL Final Phosphorus, pl Date Value Ref Range Status 06/22/2020 2.6 2.3 - 4.5 mg/dL Final Albumin Date Value Ref Range Status 06/22/2020 3.6 3.5 - 5.0 g/dL Final Calcium Date Value Ref Range Status 06/22/2020 8.8 8.5 - 10.3 mg/dL Final Lab Results Component Value Date HGBA1C 8.0 (H) 06/18/2020 Nursing Assessment: Last BM Date: 06/22/20 Bowel Sounds (All Quadrants): Hypoactive Grayson Scale Score: 14 Skin Integrity: Surgical incision Type of Wound (LDA): Surgical site Nutrition Needs Calculations: Calculated Energy Needs Using Equations Weight: (!) 174.9 kg (385 lb 9.4 oz) Height: 157.5 cm (5' 2.01 ) Estimated Protein Needs Type of Weight Used for Estimated Protein : [place]by Protein Needs Based on g/k.5 Total Protein Estimated Needs (gm): 74.85 Kcal/kg Type of Weight Used for Estimated Kcals: Current Kcal/k Total Kcal/kg Estimated Needs : 1494.14 Impression: Pt s/p L AKA 06/19. Developed hematemesis, possible gastric ischemia with spontaneous GI perf and fecal impaction. Deemed not a surgical candidate. EGD on 06/22 was cancelled. Pt reports tolerating full liquids this am w/o nausea. Reports she ate yogurt and coffee for bkft, was not very hungry. Likes glucerna, encouraged continued use TID. Pt aware of increased protein needs post op. Noted wt of 174 kg on 06/21, was 74 kg on admit, new wt likely entered in error. Ordered new wt post op. Plan: glucerna TID, monitor plan of care Current Nutrition Issues: Nutrition Diagnosis 1: Increased nutrient needs (protein) Related to: Wounds Evidenced by: Physicalfinding Nutrition Plan: Interventions: Medical food supplement Monitoring and Evaluation: Labs, Plan of care, PO intake, Supplement tolerance Goals: Oral intake to meet 75% estimated nutritional needs by next assessment Macie Joe RD, LD * Jennifer Phillips OT - 06/23/2020 11:41 AM CDT Occupational Therapy 06/23/20 1139 General Chart Reviewed Yes Session Type Evaluation OT Received On 06/23/20 Subjective Comment When asked if she would participate in OT, pt reports I will just yell . Educated pt in OT services. Patient agrees to try and work with OT in pm if her pain is better . OT Missed Visit Reason Patient declined (Plan to see pt if time allows in pm and if pain improves. ) Additional Pertinent History 65yo F with PMHx sig for dementia, HTN, DMII, HLD, osteomyelitis presenting with concern for osteomyelitis. Per EMS, patient was less responsive today, concern for osteomyelitis and that the patient would need her leg amputated. EMS states that patient was on hospice for osteomyelitis, but then the infection got better and the patient was taken off hospice. Family call ed to get the patient admitted to have the leg amputated. RN in room during attempted OT session. RN aware of pain reports. Pt 10/10 L LE residual limb pain. * Ivelisse Gonzalez, PT - 06/23/2020 9:59 AM CDT Physical Therapy Other 06/23/20 0900 General Chart Reviewed Yes Session Type Evaluation PT Received On 06/23/20 Subjective Other Subjective Comment Patient pleasant and initially agreeable to working with PT. However, when PT attempted adjusting bed to initiate mobility, patient yells out in pain. Patient reports residual limb(L) becomes too painful when attempting mobility at this time. Will attempt to see patient again asavailable. She will likely require co-treat with PT/OT once able to fully participate. Patient will require use of repositioning sling or orange slider to arevalo chair when transferring out of bed. Family/Caregiver Present No Precautions Precautions Fall risk Pain Assessment Pain Assessment 0-10 Pain Score 9 (0 at rest, 9/10 L residual limb when moving) Cognition Orientation Oriented X4 (person, place, time, situation) Plan Plan (Attempt evaluation as tolerated) Recommendation/Plan PT Recommendation/Plan Defer at this time PT - OK to Discharge No * Lesa Crook, [facility] - 06/22/2020 1:37 PM CDT Pharmacy Note - Piperacillin/Tazobactam Dosing Patient is a 65 year old female weighing 174.9 KG and a BMI of 70.51 started on piperacillin/Tazobactam for a possible intra abdominal infection. Piperacillin- Tazobactam will be dose adjusted to 4.5 gm every 6 hours according to the following pharmacy dosing guidelines based on Estimated CreatinineClearance: 55.4 mL/min (by C-G formula based on SCr of 0.65 mg/dL). CrCl (mL/min) Usual Dose Pseudomonas coverage and/or Severe Infection > 40 3.375 gm every 6 hours 4.5 gm every 6 hours 20 - 40 2.25 gm every 6 hours 3.375 gm every 6 hours < 20 2.25 gm every 8 hours 2.25 gm every 6 hours Hemodialysis 2.25 gm every 12 hours 2.25 gm every 8 hours Peritoneal Dialysis 2.25 gm every 12 hours 2.25 gm every 8 hours CVVHDF 3.375 gm every 6 hours 3.375 gm every 6 hours Severe infection includes, but not limited to: health care associated infection, neutropenic fever,pneumonia, sepsis Doses should be given after hemodialysis. Doses may be adjusted based on laboratory results and the pharmacokinetic and pharmacodynamic principles of the medication and the patient. Patients may require more intensive therapy due to severity of infection or the presence of a specific organism. A serum creatinine should be measured at least weekly. Lesa Crook PharmD, BCPS * Summer Anguiano MD - 06/22/2020 12:31 PM CDT General Medicine Daily Progress CC: leg pain Subjective The pt c/o leg pain today. She is s/p left AKA No n/v. No shortness of breath. No chest pain. No abd pain Events of last night noted--hematemesis and CT showing new portal venous gas in the left hepatic lob. Pneumatosis involving the gastric fundus and cardia with extraluminal foci of gas just adjacent to the proximal greater curvature; possible gastric ischemia. Stool ball in the rectum. Large pericardal effusion; Moderate stenosis at the celiac artery origin. Objective Vitals: 24hr Min/Max: Temp Min: 36.7 ??C (98 ??F) Max: 37.4 ??C (99.4 ??F) Pulse Min: 73 Max: 87 BP Min: 67/57 Max: 154/83 Resp Min: 9 Max: 21 SpO2 Min: 88 % Max: 100 % Most Recent : Vitals: 06/22/20 1100 BP: 128/57 Pulse: 81 Resp: 13 Temp: SpO2: 93% I/O last 2 completed shifts: In: 1081.8 [P.O.:20; I.V.:651; Blood:410.8] Out: 1000 [Urine:1000] I/O this shift: In: 290 [I.V.:290] Out: 150 [Urine:150] Body mass index is 70.51 kg/m?? (pended). Physical Exam Vitals and nursing note reviewed. Constitutional: General: She is not in acute distress. HENT: Head: Normocephalic. Cardiovascular: Rate and Rhythm: Normal rate and regular rhythm. Heart sounds: Normal heart sounds. Pulmonary: Effort: Pulmonary effort is normal. No respiratory distress. Breath sounds: Normal breath sounds. Abdominal: General: Bowel sounds are normal. Palpations: Abdomen is soft. Tenderness: There is no abdominal tenderness. Hernia: A hernia is present. Comments: Ventral hernia Musculoskeletal: Comments: S/p right AKA Now s/p left AKA--wrapped Skin: General: Skin is warm and dry. Neurological: Mental Status: She is alert and oriented to person, place, and time. Psychiatric: Mood and Affect: Mood normal. Current Medications: Current Facility-Administered Medications Medication Dose Route Frequency Provider Last Rate Last Admin ??? acetaminophen (TYLENOL) tablet 650 mg 650 mg oral Q4H PRN Spenser Ascencio MD 650 mg at 06/22/20925 ??? amLODIPine (NORVASC) tablet 10 mg 10 mg oral Daily Arley Peña MD 10 mg at 06/22/20925 ??? dextrose (GLUTOSE) 40 % gel 15 g 15 g oral Q15 Min PRN Arley Peña MD Or ??? dextrose (D10W) 10% bolus 250 mL 250 mL intravenous Q15 Min PRN Arley Peña MD ??? [Held by Provider] enoxaparin (LOVENOX) syringe 40 mg 40 mg subcutaneous Daily-2100 Arley Peña MD 40 mg at 06/20/202017 ??? gabapentin (NEURONTIN) capsule 300 mg 300 mg oral BID Arley Peña MD 300 mg at 06/22/20925 ??? glucagon injection 1 mg 1 mg intramuscular Q30 Min PRN Arley Peña MD ??? HYDROmorphone (DILAUDID) injection 0.5 mg 0.5 mg intravenous Q4H PRN Summer Anguiano MD 0.5mg at 06/22/20 0006 ??? insulin glargine (LANTUS) 100 unit/mL injection 7 Units 7 Units subcutaneous QAM Arley Peña MD 7 Units at 06/22/20925 ??? insulin lispro (HumaLOG, ADMELOG) 100 unit/mL injection 1-2 Units 1-2 Units subcutaneous Nightly Arley Peña MD 1 Units at 06/19/202224 ??? insulin lispro (HumaLOG, ADMELOG) 100 unit/mL injection 1-3 Units 1-3 Units subcutaneous TID with meals Arley Peña MD 2 Units at 06/19/20 0600 ??? levothyroxine (SYNTHROID) tablet 100 mcg 100 mcg oral Daily - 0600 Arley Peña MD 100 mcg at 06/22/20544 ??? ondansetron (ZOFRAN) injection 4 mg 4 mg intravenous Q6H PRN Spenser Ascencio MD ??? oxyCODONE (ROXICODONE) tablet 5 mg 5 mg oral Q4H PRN Arley Peña MD 5 mg at 06/22/20925 ??? pantoprazole (PROTONIX) injection 40 mg 40 mg intravenous BID Summer Anguiano MD 40 mg at 06/22/20925 ??? [id number] (ZOSYN) 3.375 gram/50 mL in dextrose (premix) 3.375 g 3.375 g intravenous Q6H Spenser Maddox MD 100 mL/hr at 06/22/20544 3.375 g at 06/22/20544 ??? sodium chloride 0.9% flush 0.5-20 mL 0.5-20 mL intra-catheter Q8H Spenser Maddox MD 10 mL at 06/22/20545 ??? sodium chloride 0.9% flush 0.5-20 mL 0.5-20 mL intra-catheter PRSpenser Michel MD ??? sodium chloride 0.9% flush 0.5-20 mL 0.5-20 mL intra-catheter Q8H Spenser Maddox MD 10 mL at 06/22/20545 ??? sodium chloride 0.9% flush 0.5-20 mL 0.5-20 mL intra-catheter PRSpenser Michel MD ??? sodium chloride 0.9% infusion 75 mL/hr intravenous Continuous Spenser Ascencio MD 75 mL/hr at06/22/20 0546 75 mL/hr at 06/22/20545 Lab/Radiology/Diagnostic Review: CBC: Recent Labs Lab Units 06/22/20 0352 06/21/20 2221 06/21/20 1908 06/21/20 0558 06/21/20 0558 06/20/20 0603 06/20/20 0603 WBC K/cumm 8.8 9.9 -- -- 6.9 < > 8.4 HEMOGLOBIN g/dL 8.5* 8.7* 8.2* < > 6.1* < > 7.0* HEMATOCRIT % 25.1* 25.5* 24.2* < > 18.8* < > 20.6* PLATELETS K/cumm 195 176 -- -- 191 < > 182 NEUTROS PCT % 71.7 -- -- -- 68.2 -- 84.2 LYMPHS PCT % 17.0 -- -- -- 21.7 -- 10.7 MONOS PCT % 4.6 -- -- -- 5.8 -- 4.0 EOS PCT % 1.4 -- -- -- 2.5 -- 0.1 < > = values in this interval not displayed. CMP: Recent Labs Lab Units 06/22/20 0907 06/22/20 0352 06/21/20 2221 06/19/20 0556 06/19/20 0550 06/17/20 0645 06/17/20 0637 06/16/20 1639 06/16/20 1318 SODIUM mmol/L -- 137 137 -- 135 < > 136 < > 135 POTASSIUM PLASMA mmol/L -- 3.7 4.0 -- 3.9 < > 3.1* < > 4.1 CHLORIDE mmol/L -- 97 98 -- 97 < > 95* < > 93* CO2 mmol/L -- 29 33* -- 30 < > 32 < > 32 ANIONGAP mmol/L -- 11 6 -- 8 < > 9 < > 10 GLUCOSE mg/dL -- 102 162 < > 184 < > 170 < > 228* POC GLUCOSE MONITOR mg/dL 79 -- -- < > -- < > -- < > -- BUN SERUM mg/dL -- 18 19 -- 16 < > 18 < > 15 CREATININE mg/dL -- 0.65 0.65 -- 0.63 < > 0.89 < > 0.73 CALCIUM mg/dL -- 8.8 8.9 -- 8.6 < > 8.6 < > 9.1 ALBUMIN g/dL -- 3.6 3.7 -- -- -- 3.5 < > 3.6 ALK PHOS Units/L -- -- -- -- -- -- 27* -- 29* ALT Units/L -- -- -- -- -- -- 25 -- 29 AST Units/L -- -- -- -- -- -- 33 -- 48* BILIRUBIN TOTAL mg/dL -- -- -- -- -- -- 0.6 -- 0.9 < > = values in this interval not displayed. Coagulation: Recent Labs Lab Units 06/17/20 0637 APTT sec 32 INR 1.3* Radiology: XR Foot Left 3 or More Views Result Date: 06/16/2020 Narrative: EXAMINATION: XR FOOT LEFT 3 OR MORE VIEWS HISTORY: Left leg pain, concern for osteomyelitis FINDINGS: 3 nonweightbearing views of the left foot are submitted with comparison to radiographsdated 11/06/2019. The bones are osteopenic. 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 No evidence of fracture. There are dense atherosclerotic calcifications. There has been interval worsening erosion of the posterior calcaneus, most prominently near the Achilles insertion. There is an overlying soft tissue ulcer. Heterotopic ossification is noted at the base of the calcaneus and in the region of osseous erosion. Impression: 1. Progressive erosion of the posterior calcaneus since 11/06/2019 with probable acute osteomyelitis of the posterosuperior calcaneus near the Achilles insertion with overlying soft tissue ulceration Electronically signed by: Navya Oliva M.D. CT Head WO Contrast Result Date: 06/16/2020 Narrative: Exam: CT HEAD WO CONTRAST Date/Time of Exam: 06/16/2020 5:35 PM Reason For Exam: AMS. Diagnosis: Acute alteration of mental status. Findings: Axial images of the head were obtained without the use of contrast material. Sagittal and coronal reformats generated. Note is made that the patientreceived intravenous contrast material for CT examination of the abdomen performed earlier the sameday. No prior comparisons available. There are no signs of an intracranial mass lesion or mass effect. No signs of acute intracranial hemorrhage or acute segmental infarction the brain. The ventricles are normal in size. The sulci and cisterns are patent. There are benign calcifications in the basal ganglia bilaterally. Benign dural calcifications are present. Vascular calcifications are evident in the carotid siphons and distal vertebral arteries. The calvarium appears to be intact. The visualized paranasal sinus cavities are clear. The mastoid air cells are clear. Impression: 1. No acute intracranial process identified. 2. Mild diffuse atrophy of the brain. 3. Benign basal ganglia calcifications symmetrically. 4. Atherosclerotic calcification of the carotid siphons and distal vertebral arteries. Electronically signed by: eKnny Fabian M.D. CT Abdomen Pelvis W Contrast Result Date: 06/16/2020 Narrative: CT abdomen and pelvis with contrast HISTORY: Abdominal pain. Incarcerated hernia. TECHNIQUE: CT abdomen and pelvis was done with contrast 95 mL Optiray 350 intravenously. FINDINGS: Comparison outside CT of 11/08/2019. There is a rounded mass in the right breast incompletely included. Likely a fluid density. Clinical correlation recommended. There is atherosclerosis which is especially severe in the coronary arteries. There is large amount of pericardial fluid. Correlation with echocardiogram recommended. Mild pleural and parietal opacities at the lung bases. Size of the spleen is normal. Bilateral adrenal glands are normal. No definite solid renal mass. No definite hydronephrosis. Mild hepatic steatosis. Abnormally distended gallbladder. Consider correlation with sonogram. Moderate colonic. No definite evidence of pancreatitis or pancreatic mass. Fecal impaction with large amount of stool in the rectum. Mild diffuse bladder wall thickening. There is a large well-defined fluid density mass in the anterior abdominal wall intimately associated with prior anterior abdominal wall surgery site. Greatest transverse dimension nearly 11 cm across. Similar to prior study. Mild diffuse bladder wall thickening. Correlation with urinalysis recommended. No definite acute fractures a ppreciated. There are multiple patchy lucencies throughout the thoracic and lumbar spine of uncertain significance. Previously described as well either unchanged or minimally more prominent. Slightlydifferent techniques between the 2 CT scans. Clinical and lab correlation recommended. Consider MRIthoracic and lumbar spine. Impression: 1. Rounded mass density in the right breast incompletely included. Clinical correlationrecommended. 2. Large amount of pericardial fluid. Correlation with echocardiogram recommended. 3. Distended gallbladder. Clinical correlation recommended. 4. Fecal impaction. 5. Large fluid density mass in the anterior abdominal wall intimately associated with prior surgical site. Chronic and stable from prior study. 6. Patchy lucencies in the vertebral bodies as previously described and either unchanged or perhaps slightly more prominent or slightly increased. Recommended clinical and lab correlation and MRI thoracic and lumbar spine. 7. Additional details above. Electronically signed by: Aram Pederson M.D. XR Chest 1 Vw Portable Result Date: 06/16/2020 Narrative: Portable chest HISTORY: Fever. FINDINGS: An AP upright lordotic radiograph of the chest obtained essentially in expiration is compared to a previous examination 11/22/2019. Comparison is also made to a CT examination of the abdomen performed earlier this afternoon. The heart size is mildly enlarged. This is shown to reflect a moderately large pericardial effusion on the patient's CT examination. The left lung base is poorly penetrated/assessed. The CT study demonstrates only some minimal atelectasis at the left lung base and no pleural fluid. The right lung is clear. Impression: 1. Enlarged cardiac silhouette shown in large part reflect the presence of a moderatelylarge pericardial effusion on concurrently performed computed tomography. 2. The left lung base is not well penetrated/assessed on this radiograph. However, the CT study demonstrates only some minimal atelectasis at the left lung base and no left pleural fluid. The right lung is clear. Electronically signed by: Tomi Urena M.D. A/P Labs and radiology findings were personally reviewed by me. 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 S/p AKA--discontinued IV abx. Prior hx of proteus bacteremia during admission in nov 2019. possible gastric ischemia with spontaneous GI perforation causing hematemesis Hematemesis now resolved NPO for now Not felt to be an operative candidate; on Zosyn Type 2 DM - A1c 8.6. On sliding scale and morning Lantus; stable ?? Essential HTN - norvasc PVD/ Celiac stenosis ?? Acquired Hypothyroidism - synthroid increased ?? Dementia - A&Ox2 currently COVID 19 recovered Medical decision making: moderate DVT PROPHYLAXIS with SCD's Summer Anguiano MD 06/22/2020 * Arley Peña MD - 06/22/2020 11:37 AM CDT Dictated. * Harlan Salamanca MD - 06/22/2020 11:01 AM CDT CRITICAL CARE MEDICINE PROGRESS NOTE Indication For ICU Admission; abnormal abdominal CT with portal venous gas & extraluminal air around her stomach. Interval History; stable hemodynamically. Normal lactate. VITAL SIGNS PHYSICAL EXAM Tmax : Afebrile HEENT : HR : 70-80 CVC Site : BP : 120/70 Lungs : Diminished bases bilaterally I / O : 1087/1000 Cardiac : Trouble are Urine : 1000 Abdomen : Ventral hernia NG/OG : Extremities : Bilateral AKA Stool : Neuro : Awake & alert, mild confusion Drain : Skin : No rashes Lines & Catheters: Urethral Catheter 18 Fr. (Active) Number of days: 1 LABS All pertinent data from last 24 hours reviewed and include; ABG : Chemistries : Recent Labs Lab Units 06/22/20 0352 06/21/20 2221 06/19/20 0550 06/17/20 0637 06/17/20 0637 06/16/20 1318 06/16/20 1318 SODIUM mmol/L 137 137 135 < > 136 < > 135 POTASSIUM PLASMA mmol/L 3.7 4.0 3.9 < > 3.1* < > 4.1 CHLORIDE mmol/L 97 98 97 < > 95* < > 93* CO2 mmol/L 29 33* 30 < > 32 < > 32 BUN SERUM mg/dL 18 19 16 < > 18 < > 15 CREATININE mg/dL 0.65 0.65 0.63 < > 0.89 < > 0.73 MAGNESIUM mg/dL -- -- -- -- 1.8 -- -- PHOSPHORUS PLASMA mg/dL 2.6 2.9 -- -- 3.5 -- -- CALCIUM mg/dL 8.8 8.9 8.6 < > 8.6 < > 9.1 ALK PHOS Units/L -- -- -- -- 27* -- 29* ALT Units/L -- -- -- -- 25 -- 29 AST Units/L -- -- -- -- 33 -- 48* BILIRUBIN TOTAL mg/dL -- -- -- -- 0.6 -- 0.9 LACTATE mmol/L -- 1.1 -- -- -- -- 1.9 < > = values in this interval not displayed. Recent Labs Lab Units 06/17/20 0637 INR 1.3* All radiologic images over the past 24 hours were personally reviewed. Assessment & Plan Neuro : ?? Baseline dementia with chronic debility. Cardiac : ?? Hypertension; Norvasc GI : ?? CT scan with abnormal in findings as below. Discussions with surgeon last evening regarding intervention and decisions were made by him and family that surgical intervention was not an option. Lactate is stable. There was plans for upper endoscopy today but GI has elected to not proceed based upon these CT findings. 1. CT findings as discussed which are highly consistent with interval development of gastric ischemia at the fundus/cardia with portal venous gas and trace amounts of extraluminal air along the greater curvature of the stomach. 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 Critical findings communicated by [facility] to Dr. Ascencio at 2157 hours. 2. Large amount of stool throughout the colon with a large stool ball at the rectum consistent with constipation/fecal impaction. 3. Large pericardial effusion again noted. 4. Cholelithiasis. 5. Bladder wall thickening which could reflect a combination of incomplete distention and cystitis as discussed. A Kaplan catheter is in place. 6. Status post ventral herniorrhaphy. An apparent adjacent seroma is again seen with an anterior abdominal/pelvic subcutaneous fat. 7. Extensive body wall edema. Renal : ?? Adjust medication dosages as needed for degree of renal insufficiency and avoid nephrotoxic agents. ID : ?? Zosyn for possible intra-abdominal process. ?? Osteomyelitis, left AKA. 06/19. Hematology : ??? Anemia; stable CBC : Recent Labs Lab Units 06/22/20 0352 06/21/20222006/21/20 1908 06/21/20 0558 06/21/20 0558 WBC K/cumm 8.8 9.9 -- -- 6.9 HEMOGLOBIN g/dL 8.5* 8.7* 8.2* < > 6.1* PLATELETS K/cumm 195 176 -- -- 191 < > = values in this interval not displayed. Endocrine : ?? Diabetes mellitus; type II. SSI. Recent Labs Lab Units 06/22/20 0907 06/22/20 0352 06/21/20222006/21/20 2123 06/21/20 1635 06/21/20 1336 06/21/20 0559 06/20/20202006/20/20 1646 06/20/20 1127 GLUCOSE mg/dL -- 102 162 -- -- -- -- -- -- -- POC GLUCOSE MONITOR mg/dL 79 -- -- 196* 136 111 123 150* 147* 154* Other : ??? Nutrition : NPO DVT Prophylaxis : LMWH Stress Ulcer Prophylaxis : Critical Care Time Minutes spent in assessing patient, reviewing laboratory data and Xray images, making therapeutic decisions and implementing care plan excluding time spent in separately billiable procedures. I was in the unit immediately available to the patient and their nurse, devoting my fullattention to them during this time. Clinical decisions and medication choices may have been tempered by the national shortage of several medications and/or IV Fluids. These shortages include dobutamine & standard electrolytes; administration is limited by protocols which have been put in place by the [facility] system to preserve limited supplies. [employer] Heparin shortage has also impacted choices for VTE prophylaxis and treatment. * Arley Peña MD - 06/22/2020 12:00 AM CDT A 65-year-old black female who is diabetic has peripheral vascular disease and history of COVID last year at which time I had done an [id number] amputation on the right. She had come to this hospital less than a week ago with ischemic rest pain and I have done a left [id number] amputation about 3 days ago. I was actually signing off the case after I had seen her yesterday afternoon at 3, however I received a call late yesterday evening by intensive care physician that patient started vomiting and there was suggestion of hematemesis. She was moved to intensive care unit for not any clear reasons, however they did a CAT scan which shows gas in the portal vein and hence the reason for a new consult. Since my last visit the patient has been stable. She does not have any abdominal pain. Her pain is in the right lower extremity which was amputated 6-8 months ago. The patient has been stable. She ezekiel the pressure support. She is on room air, not on any oxygen, and basically she is asymptomatic except for the pain in the right lower extremity. Currently the patient is on Tylenol, Dilaudid, oxycodone, Zosyn empirically that was started last night after the findings of the CAT scan, Lovenox which is being held, insulin Lantus, insulin lisproon a sliding scale. She is on amlodipine, gabapentin, glucagon p.r.n., dextrose 40% gel as needed, dextrose 10% solution as needed, sodium chloride infusion as needed. She is on Zofran p.r.n., pantoprazole sodium, polyethylene glycol, levothyroxine. She is NPO. Examination She is well-built, nourished black female very alert, cooperative and conscious in no pain, not in any distress, not even uncomfortable except for pain in the right stump area. Temperature is 99.4, pulse 81, respirations 13, blood pressure 120/57, oxygen saturation is 93%. No cervical lymphadenopathy. No cervical bruit. No thyromegaly. Auscultation of heart reveals heartrate to be 81 per minute, regular. No murmur. No gallops. No chest wall deformity. No chest wall tenderness. No respiratory distress. Lungs are clear to auscultation. No foreign sounds. Examination of the abdomen reveals no aortic bruit, no iliac bruit, no tenderness, no guarding. Peristalsis is nor mal. She has a ventral hernia that is partially reducible. No signs of peritonitis. No distention. No aortic bruit. No iliac bruit. She has a midline scar from previous umbilical hernia repair. No distention. Femoral pulses are barely palpable. The left AK stump has samara in situ. The right AK stump is healed very well. Her mentation is much better, no different than yesterday. Clinical Impression Vomiting with suggestion of acute emergency as per CAT scan. She has extra luminal air along the stomach line with portal venous gas and stenosis at the origin of the celiac axis. The large amount of stool throughout the colon and large stool ball at the rectum consistent with constipation and fecal impaction. She also has pericardial effusion. She has cholelithiasis. Bladder wall thickening. Status post ventral herniorrhaphy, apparent adjacent seroma again seen with anterior abdominal pelvic subcutaneous fat. Extensive body wall edema. Discussion This patient does not have an acute emergency clinically. Although the CAT scans have portal venousgas and gas in the stomach, we have had situations like this especially a couple months apart of patient like that who had a G-tube and we observed the patient for lack of any clinical findings in terms of any abdominal emergency like peritonitis. Her lab work also does not justify for any acute shell rgency in terms of fact that her white cell count is 8800, hemoglobin 8.5, hematocrit 25.1. Her renal function panel is practically normal. Her GFR is 93. Lactate level was normal. At this point I would continue to keep her perhaps NPO for the rest of the day and then discontinueall the other measures. May transfer to regular floor and start oral feedings probably tomorrow. Job ID/VF Job ID: [id number] * Spenser Ascencio MD - 06/21/2020 10:06 PM CDT CCM Patient has venous gas and extraluminal air amongst other concerns on her ABD CT. Suspect she has ischemic bowel. I have d/w Dr. Peña and son and current plan is to treat conservatively with NO plans for surgery. All are in agreement. * Minoo Mckeon RN - 06/21/2020 7:58 PM CDT Pt had first episode of emesis at ~1745, shortly after pt was turned on her side for a dressing change. Scant amount of brown emesis occured, presumed to be leftovers of the pureed roast beef pt had for lunch. PRN Zofran administered, pt states relief at ~1800. Kaplan kit obtained and 2nd pair of hands requested to help insert kaplan catheter per order. Upon arrival to pt's room at ~1815, pt found with a large amount of watery rust colored emesis in the basin and on her gown. Attending MD Anguiano notified; Lovenox held, stat H&H obtained, and Protonix ordered. mold shifter RN notified Silvio of H&H results, and stated we were to call an CAR RENTAL CLERK and new orders would be put in to transferthe pt to the ICU. CAR RENTAL CLERK team arrived, pt assessed, and transferred to the ICU by the night RN. * Arley Peña MD - 06/21/2020 5:23 PM CDT More alert. Not putting out much urine. Will Check for residual. Received transfusion. Redressed .Slight oozing form the wound. * Summer Anguiano MD - 06/21/2020 9:04 AM CDT General Medicine Daily Progress CC: leg pain Subjective The pt c/o leg pain today. She is s/p left AKA No n/v. No shortness of breath. No chest pain. Anemic today Objective Vitals: 24hr Min/Max: Temp Min: 36.3 ??C (97.3 ??F) Max: 36.6 ??C (97.9 ??F) Pulse Min: 71 Max: 78 BP Min: 129/58 Max: 145/72 Resp Min: 18 Max: 19 SpO2 Min: 90 % Max: 100 % Most Recent : Vitals: 06/21/20 0427 BP: 129/58 Pulse: 71 Resp: 18 Temp: 36.6 ??C (97.8 ??F) SpO2: 100% I/O last 2 completed shifts: In: 1608 [P.O.:990; I.V.:618] Out: 1125 [Urine:1125] No intake/output data recorded. Body mass index is 30.12 kg/m??. Physical Exam Vitals and nursing note reviewed. Constitutional: General: She is not in acute distress. HENT: Head: Normocephalic. Cardiovascular: Rate and Rhythm: Normal rate and regular rhythm. Heart sounds: Normal heart sounds. Pulmonary: Effort: Pulmonary effort is normal. No respiratory distress. Breath sounds: Normal breath sounds. Abdominal: General: Bowel sounds are normal. Palpations: Abdomen is soft. Tenderness: There is no abdominal tenderness. Hernia: A hernia is present. Comments: Ventral hernia Musculoskeletal: Comments: S/p right AKA Now s/p left AKA--wrapped Skin: General: Skin is warm and dry. Neurological: Mental Status: She is alert and oriented to person, place, and time. Psychiatric: Mood and Affect: Mood normal. Current Medications: Current Facility-Administered Medications Medication Dose Route Frequency Provider Last Rate Last Admin ??? acetaminophen (TYLENOL) tablet 650 mg 650 mg oral Q4H PRN Arley Peña MD 650 mg at ??? amLODIPine (NORVASC) tablet 10 mg 10 mg oral Daily Arley Peña MD 10 mg at 06/20/20853 ??? dextrose (GLUTOSE) 40 % gel 15 g 15 g oral Q15 Min PRN Arley Peña MD Or ??? dextrose (D10W) 10% bolus 250 mL 250 mL intravenous Q15 Min PRN Arley Peña MD ??? enoxaparin (LOVENOX) syringe 40 mg 40 mg subcutaneous Daily-2100 Arley Peña MD 40 mg at 06/20/202017 ??? gabapentin (NEURONTIN) capsule 300 mg 300 mg oral BID Arley Peña MD 300 mg at 06/21/20 0820 ??? glucagon injection 1 mg 1 mg intramuscular Q30 Min PRN Arley Peña MD ??? HYDROmorphone (DILAUDID) injection 0.5 mg 0.5 mg intravenous Q4H PRN Summer Anguiano MD 0.5mg at 06/21/20 0822 ??? insulin glargine (LANTUS) 100 unit/mL injection 7 Units 7 Units subcutaneous QAM Arley Peña MD 7 Units at 06/21/20 0823 ??? insulin lispro (HumaLOG, ADMELOG) 100 unit/mL injection 1-2 Units 1-2 Units subcutaneous Nightly Arley Peña MD 1 Units at 06/19/20 2225 ??? insulin lispro (HumaLOG, ADMELOG) 100 unit/mL injection 1-3 Units 1-3 Units subcutaneous TID with meals Arley Peña MD 2 Units at 06/19/20 0600 ??? Lactated Ringer's (LR) infusion 30 mL/hr intravenous Continuous Arley Peña MD 30 mL/hr at 06/19/20 1657 New Bag at 06/19/20 1922 ??? levothyroxine (SYNTHROID) tablet 100 mcg 100 mcg oral Daily - 0600 Arley Peña MD 100 mcg at 06/21/20 0526 ??? ondansetron ODT (ZOFRAN-ODT) disintegrating tablet 4 mg 4 mg oral Q6H PRN Arley Peña MD Or ??? ondansetron (ZOFRAN) injection 4 mg 4 mg intravenous Q6H PRN Arley Peña MD ??? oxyCODONE (ROXICODONE) tablet 5 mg 5 mg oral Q4H PRN Arley Peña MD 5 mg at 06/20/20 1759 ??? polyethylene glycol (MIRALAX) packet 17 g 17 g oral Daily PRN Arley Peña MD ??? sodium chloride 0.9% IVPB 0-250 mL 0-250 mL intravenous Once Preeti Rose NP Lab/Radiology/Diagnostic Review: CBC: Recent Labs Lab Units 06/21/20 0558 06/20/20 0603 06/17/20 0637 WBC K/cumm 6.9 8.4 6.4 HEMOGLOBIN g/dL 6.1* 7.0* 9.8* HEMATOCRIT % 18.8* 20.6* 29.9* PLATELETS K/cumm 191 182 209 NEUTROS PCT % 68.2 84.2 83.2 LYMPHS PCT % 21.7 10.7 10.1 MONOS PCT % 5.8 4.0 5.7 EOS PCT % 2.5 0.1 0.0 CMP: Recent Labs Lab Units 06/21/20 0559 06/20/20 2021 06/20/20 1646 06/19/20 0556 06/19/20 0550 06/17/20 0645 06/17/20 0637 06/16/20 1639 06/16/20 1318 SODIUM mmol/L -- -- -- -- 135 -- 136 -- 135 POTASSIUM PLASMA mmol/L -- -- -- -- 3.9 -- 3.1* -- 4.1 CHLORIDE mmol/L -- -- -- -- 97 -- 95* -- 93* CO2 mmol/L -- -- -- -- 30 -- 32 -- 32 ANIONGAP mmol/L -- -- -- -- 8 -- 9 -- 10 GLUCOSE mg/dL -- -- -- -- 184 < > 170 < > 228* POC GLUCOSE MONITOR mg/dL 123 150* 147* < > -- < > -- < > -- BUN SERUM mg/dL -- -- -- -- 16 -- 18 -- 15 CREATININE mg/dL -- -- -- -- 0.63 -- 0.89 -- 0.73 CALCIUM mg/dL -- -- -- -- 8.6 -- 8.6 -- 9.1 ALBUMIN g/dL -- -- -- -- -- -- 3.5 -- 3.6 ALK PHOS Units/L -- -- -- -- -- -- 27* -- 29* ALT Units/L -- -- -- -- -- -- 25 -- 29 AST Units/L -- -- -- -- -- -- 33 -- 48* BILIRUBIN TOTAL mg/dL -- -- -- -- -- -- 0.6 -- 0.9 < > = values in this interval not displayed. Coagulation: Recent Labs Lab Units 06/17/20 0637 APTT sec 32 INR 1.3* Radiology: XR Foot Left 3 or More Views Result Date: 06/16/2020 Narrative: EXAMINATION: XR FOOT LEFT 3 OR MORE VIEWS HISTORY: Left leg pain, concern for osteomyelitis FINDINGS: 3 nonweightbearing views of the left foot are submitted with comparison to radiographsdated 11/06/2019. The bones are osteopenic. 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 No evidence of fracture. There are dense atherosclerotic calcifications. There has been interval worsening erosion of the posterior calcaneus, most prominently near the Achilles insertion. There is an overlying soft tissue ulcer. Heterotopic ossification is noted at the base of the calcaneus and in the region of osseous erosion. Impression: 1. Progressive erosion of the posterior calcaneus since 11/06/2019 with probable acute osteomyelitis of the posterosuperior calcaneus near the Achilles insertion with overlying soft tissue ulceration Electronically signed by: Navya Oliva M.D. CT Head WO Contrast Result Date: 06/16/2020 Narrative: Exam: CT HEAD WO CONTRAST Date/Time of Exam: 06/16/2020 5:35 PM Reason For Exam: AMS. Diagnosis: Acute alteration of mental status. Findings: Axial images of the head were obtained without the use of contrast material. Sagittal and coronal reformats generated. Note is made that the patientreceived intravenous contrast material for CT examination of the abdomen performed earlier the sameday. No prior comparisons available. There are no signs of an intracranial mass lesion or mass effect. No signs of acute intracranial hemorrhage or acute segmental infarction the brain. The ventricles are normal in size. The sulci and cisterns are patent. There are benign calcifications in the basal ganglia bilaterally. Benign dural calcifications are present. Vascular calcifications are evident in the carotid siphons and distal vertebral arteries. The calvarium appears to be intact. The visualized paranasal sinus cavities are clear. The mastoid air cells are clear. Impression: 1. No acute intracranial process identified. 2. Mild diffuse atrophy of the brain. 3. Benign basal ganglia calcifications symmetrically. 4. Atherosclerotic calcification of the carotid siphons and distal vertebral arteries. Electronically signed by: Kenny Fabian M.D. CT Abdomen Pelvis W Contrast Result Date: 06/16/2020 Narrative: CT abdomen and pelvis with contrast HISTORY: Abdominal pain. Incarcerated hernia. TECHNIQUE: CT abdomen and pelvis was done with contrast 95 mL Optiray 350 intravenously. FINDINGS: Comparison outside CT of 11/08/2019. There is a rounded mass in the right breast incompletely included. Likely a fluid density. Clinical correlation recommended. There is atherosclerosis which is especially severe in the coronary arteries. There is large amount of pericardial fluid. Correlation with echocardiogram recommended. Mild pleural and parietal opacities at the lung bases. Size of the spleen is normal. Bilateral adrenal glands are normal. No definite solid renal mass. No definite hydronephrosis. Mild hepatic steatosis. Abnormally distended gallbladder. Consider correlation with sonogram. Moderate colonic. No definite evidence of pancreatitis or pancreatic mass. Fecal impaction with large amount of stool in the rectum. Mild diffuse bladder wall thickening. There is a large well-defined fluid density mass in the anterior abdominal wall intimately associated with prior anterior abdominal wall surgery site. Greatest transverse dimension nearly 11 cm across. Similar to prior study. Mild diffuse bladder wall thickening. Correlation with urinalysis recommended. No definite acute fractures a ppreciated. There are multiple patchy lucencies throughout the thoracic and lumbar spine of uncertain significance. Previously described as well either unchanged or minimally more prominent. Slightlydifferent techniques between the 2 CT scans. Clinical and lab correlation recommended. Consider MRIthoracic and lumbar spine. Impression: 1. Rounded mass density in the right breast incompletely included. Clinical correlationrecommended. 2. Large amount of pericardial fluid. Correlation with echocardiogram recommended. 3. Distended gallbladder. Clinical correlation recommended. 4. Fecal impaction. 5. Large fluid density mass in the anterior abdominal wall intimately associated with prior surgical site. Chronic and stable from prior study. 6. Patchy lucencies in the vertebral bodies as previously described and either unchanged or perhaps slightly more prominent or slightly increased. Recommended clinical and lab correlation and MRI thoracic and lumbar spine. 7. Additional details above. Electronically signed by: Aram Pederson M.D. XR Chest 1 Vw Portable Result Date: 06/16/2020 Narrative: Portable chest HISTORY: Fever. FINDINGS: An AP upright lordotic radiograph of the chest obtained essentially in expiration is compared to a previous examination 11/22/2019. Comparison is also made to a CT examination of the abdomen performed earlier this afternoon. The heart size is mildly enlarged. This is shown to reflect a moderately large pericardial effusion on the patient's CT examination. The left lung base is poorly penetrated/assessed. The CT study demonstrates only some minimal atelectasis at the left lung base and no pleural fluid. The right lung is clear. Impression: 1. Enlarged cardiac silhouette shown in large part reflect the presence of a moderatelylarge pericardial effusion on concurrently performed computed tomography. 2. The left lung base is not well penetrated/assessed on this radiograph. However, the CT study demonstrates only some minimal atelectasis at the left lung base and no left pleural fluid. The right lung is clear. Electronically signed by: Tomi Urena M.D. A/P Labs and radiology findings were personally reviewed by me. Active Problems: PVD (peripheral vascular disease) (CMS/HCC) Hyperlipidemia Dementia (CMS/HCC) Moderate malnutrition (CMS/HCC) Anemia Hypothyroidism Diabetes mellitus (CMS/HCC) Hypertension Osteomyelitis of Left foot in the setting of severe PAD and type 2 DM, s/p left AKA Rt LE osteo s/p AKA in 11/30 - XR showing acute osteo of the posterior calcaneous. S/p AKA--discontinued IV abx. Prior hx of proteus bacteremia during admission in nov 2019. Expected acute blood loss anemia Transfuse; CBC in am Type 2 DM - A1c 8.6. On sliding scale and morning Lantus; stable ?? Essential HTN - norvasc ?? Acquired Hypothyroidism - synthroid increased ?? Dementia - A&Ox2 currently COVID 19 recovered Hypokalemia; replaced Ventral hernia Medical decision making: moderate DVT PROPHYLAXIS with Lovenox Summer Anguiano MD 06/21/2020 * Arley Peña MD - 06/20/2020 6:04 PM CDT Afebrile,Drowsy, sedated? Looks pale. Valadez nd H down. To check it again. Plan: Transfuse her if Hct<20.tomorrow. * Summer Anguiano MD - 06/20/2020 1:18 PM CDT General Medicine Daily Progress CC: leg pain Subjective The pt c/o leg pain today. She is s/p left AKA No n/v. No shortness of breath. No chest pain. Objective Vitals: 24hr Min/Max: Temp Min: 35.9 ??C (96.6 ??F) Max: 36.7 ??C (98 ??F) Pulse Min: 54 Max: 76 BP Min: 80/52 Max: 145/115 Resp Min: 9 Max: 19 SpO2 Min: 90 % Max: 100 % Most Recent : Vitals: 06/20/20 0941 BP: (!) 145/115 Pulse: 76 Resp: 18 Temp: 36.4 ??C (97.5 ??F) SpO2: 90% I/O last 2 completed shifts: In: 1112 [I.V.:1112] Out: 1250 [Urine:1000; Blood:250] No intake/output data recorded. Body mass index is 30.12 kg/m??. Physical Exam Vitals and nursing note reviewed. Constitutional: General: She is not in acute distress. HENT: Head: Normocephalic. Cardiovascular: Rate and Rhythm: Normal rate and regular rhythm. Heart sounds: Normal heart sounds. Pulmonary: Effort: Pulmonary effort is normal. No respiratory distress. Breath sounds: Normal breath sounds. Abdominal: General: Bowel sounds are normal. Palpations: Abdomen is soft. Tenderness: There is no abdominal tenderness. Hernia: A hernia is present. Comments: Ventral hernia Musculoskeletal: Comments: S/p right AKA Now s/p left AKA--wrapped Skin: General: Skin is warm and dry. Neurological: Mental Status: She is alert and oriented to person, place, and time. Psychiatric: Mood and Affect: Mood normal. Current Medications: Current Facility-Administered Medications Medication Dose Route Frequency Provider Last Rate Last Admin ??? acetaminophen (TYLENOL) tablet 650 mg 650 mg oral Q4H PRN Arley Peña MD 650 mg at ??? amLODIPine (NORVASC) tablet 10 mg 10 mg oral Daily Arley Peña MD 10 mg at 06/20/20 08 ??? cefepime (MAXIPIME) 2,000 mg in sodium chloride 0.9% 100 mL IVPB 2,000 mg intravenous Q12H Arley Peña MD 200 mL/hr at 06/20/20 0454 2,000 mg at 06/20/20 0454 ??? dextrose (GLUTOSE) 40 % gel 15 g 15 g oral Q15 Min PRN Arley Peña MD Or ??? dextrose (D10W) 10% bolus 250 mL 250 mL intravenous Q15 Min PRN Arley Peña MD ??? enoxaparin (LOVENOX) syringe 40 mg 40 mg subcutaneous Daily-2100 Arley Peña MD 40 mg at 06/19/20 2308 ??? gabapentin (NEURONTIN) capsule 300 mg 300 mg oral BID Arley Peña MD 300 mg at 06/20/20 0854 ??? glucagon injection 1 mg 1 mg intramuscular Q30 Min PRN Arley Peña MD ??? insulin glargine (LANTUS) 100 unit/mL injection 7 Units 7 Units subcutaneous QAM Arley Peña MD 7 Units at 06/20/20 0854 ??? insulin lispro (HumaLOG, ADMELOG) 100 unit/mL injection 1-2 Units 1-2 Units subcutaneous Nightly Arley Peña MD 1 Units at 06/19/20 2225 ??? insulin lispro (HumaLOG, ADMELOG) 100 unit/mL injection 1-3 Units 1-3 Units subcutaneous TID with meals Arley Peña MD 2 Units at 06/19/20 0600 ??? Lactated Ringer's (LR) infusion 30 mL/hr intravenous Continuous Arley Peña MD 30 mL/hr at 06/19/20 1657 New Bag at 06/19/20 1922 ??? levothyroxine (SYNTHROID) tablet 100 mcg 100 mcg oral Daily - 0600 Arley Peña MD 100 mcg at 06/20/20 0641 ??? ondansetron ODT (ZOFRAN-ODT) disintegrating tablet 4 mg 4 mg oral Q6H PRN Arley Peña MD Or ??? ondansetron (ZOFRAN) injection 4 mg 4 mg intravenous Q6H PRN Arley Peña MD ??? oxyCODONE (ROXICODONE) tablet 5 mg 5 mg oral Q4H PRN Arley Peña MD 5 mg at 06/20/20 1126 ??? polyethylene glycol (MIRALAX) packet 17 g 17 g oral Daily PRN Arley Peña MD ??? vancomycin 1250 mg/250 mL in sodium chloride 0.9% (premix) 1,250 mg 15 mg/kg intravenous Q24H Arley Peña MD 1,250 mg at 06/19/20 1610 Lab/Radiology/Diagnostic Review: CBC: Recent Labs Lab Units 06/20/20 0603 06/17/20 0637 06/16/20 1318 WBC K/cumm 8.4 6.4 6.9 HEMOGLOBIN g/dL 7.0* 9.8* 11.4* HEMATOCRIT % 20.6* 29.9* 33.8* PLATELETS K/cumm 182 209 228 NEUTROS PCT % 84.2 83.2 77.2 LYMPHS PCT % 10.7 10.1 11.7 MONOS PCT % 4.0 5.7 7.1 EOS PCT % 0.1 0.0 2.5 CMP: Recent Labs Lab Units 06/20/20 1127 06/20/20 0636 06/19/20 2224 06/19/20 0556 06/19/20 0550 06/17/20 0645 06/17/20 0637 06/16/20 1639 06/16/20 1318 SODIUM mmol/L -- -- -- -- 135 -- 136 -- 135 POTASSIUM PLASMA mmol/L -- -- -- -- 3.9 -- 3.1* -- 4.1 CHLORIDE mmol/L -- -- -- -- 97 -- 95* -- 93* CO2 mmol/L -- -- -- -- 30 -- 32 -- 32 ANIONGAP mmol/L -- -- -- -- 8 -- 9 -- 10 GLUCOSE mg/dL -- -- -- -- 184 < > 170 < > 228* POC GLUCOSE MONITOR mg/dL 154* 165* 210* < > -- < > -- < > -- BUN SERUM mg/dL -- -- -- -- 16 -- 18 -- 15 CREATININE mg/dL -- -- -- -- 0.63 -- 0.89 -- 0.73 CALCIUM mg/dL -- -- -- -- 8.6 -- 8.6 -- 9.1 ALBUMIN g/dL -- -- -- -- -- -- 3.5 -- 3.6 ALK PHOS Units/L -- -- -- -- -- -- 27* -- 29* ALT Units/L -- -- -- -- -- -- 25 -- 29 AST Units/L -- -- -- -- -- -- 33 -- 48* BILIRUBIN TOTAL mg/dL -- -- -- -- -- -- 0.6 -- 0.9 < > = values in this interval not displayed. Coagulation: Recent Labs Lab Units 06/17/20 0637 APTT sec 32 INR 1.3* Radiology: XR Foot Left 3 or More Views Result Date: 06/16/2020 Narrative: EXAMINATION: XR FOOT LEFT 3 OR MORE VIEWS HISTORY: Left leg pain, concern for osteomyelitis FINDINGS: 3 nonweightbearing views of the left foot are submitted with comparison to radiographsdated 11/06/2019. The bones are osteopenic. 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 No evidence of fracture. There are dense atherosclerotic calcifications. There has been interval worsening erosion of the posterior calcaneus, most prominently near the Achilles insertion. There is an overlying soft tissue ulcer. Heterotopic ossification is noted at the base of the calcaneus and in the region of osseous erosion. Impression: 1. Progressive erosion of the posterior calcaneus since 11/06/2019 with probable acute osteomyelitis of the posterosuperior calcaneus near the Achilles insertion with overlying soft tissue ulceration Electronically signed by: Navya Oliva M.D. CT Head WO Contrast Result Date: 06/16/2020 Narrative: Exam: CT HEAD WO CONTRAST Date/Time of Exam: 06/16/2020 5:35 PM Reason For Exam: AMS. Diagnosis: Acute alteration of mental status. Findings: Axial images of the head were obtained without the use of contrast material. Sagittal and coronal reformats generated. Note is made that the patientreceived intravenous contrast material for CT examination of the abdomen performed earlier the sameday. No prior comparisons available. There are no signs of an intracranial mass lesion or mass effect. No signs of acute intracranial hemorrhage or acute segmental infarction the brain. The ventricles are normal in size. The sulci and cisterns are patent. There are benign calcifications in the basal ganglia bilaterally. Benign dural calcifications are present. Vascular calcifications are evident in the carotid siphons and distal vertebral arteries. The calvarium appears to be intact. The visualized paranasal sinus cavities are clear. The mastoid air cells are clear. Impression: 1. No acute intracranial process identified. 2. Mild diffuse atrophy of the brain. 3. Benign basal ganglia calcifications symmetrically. 4. Atherosclerotic calcification of the carotid siphons and distal vertebral arteries. Electronically signed by: Kenny Fabian M.D. CT Abdomen Pelvis W Contrast Result Date: 06/16/2020 Narrative: CT abdomen and pelvis with contrast HISTORY: Abdominal pain. Incarcerated hernia. TECHNIQUE: CT abdomen and pelvis was done with contrast 95 mL Optiray 350 intravenously. FINDINGS: Comparison outside CT of 11/08/2019. There is a rounded mass in the right breast incompletely included. Likely a fluid density. Clinical correlation recommended. There is atherosclerosis which is especially severe in the coronary arteries. There is large amount of pericardial fluid. Correlation with echocardiogram recommended. Mild pleural and parietal opacities at the lung bases. Size of the spleen is normal. Bilateral adrenal glands are normal. No definite solid renal mass. No definite hydronephrosis. Mild hepatic steatosis. Abnormally distended gallbladder. Consider correlation with sonogram. Moderate colonic. No definite evidence of pancreatitis or pancreatic mass. Fecal impaction with large amount of stool in the rectum. Mild diffuse bladder wall thickening. There is a large well-defined fluid density mass in the anterior abdominal wall intimately associated with prior anterior abdominal wall surgery site. Greatest transverse dimension nearly 11 cm across. Similar to prior study. Mild diffuse bladder wall thickening. Correlation with urinalysis recommended. No definite acute fractures a ppreciated. There are multiple patchy lucencies throughout the thoracic and lumbar spine of uncertain significance. Previously described as well either unchanged or minimally more prominent. Slightlydifferent techniques between the 2 CT scans. Clinical and lab correlation recommended. Consider MRIthoracic and lumbar spine. Impression: 1. Rounded mass density in the right breast incompletely included. Clinical correlationrecommended. 2. Large amount of pericardial fluid. Correlation with echocardiogram recommended. 3. Distended gallbladder. Clinical correlation recommended. 4. Fecal impaction. 5. Large fluid density mass in the anterior abdominal wall intimately associated with prior surgical site. Chronic and stable from prior study. 6. Patchy lucencies in the vertebral bodies as previously described and either unchanged or perhaps slightly more prominent or slightly increased. Recommended clinical and lab correlation and MRI thoracic and lumbar spine. 7. Additional details above. Electronically signed by: Aram Pederson M.D. XR Chest 1 Vw Portable Result Date: 06/16/2020 Narrative: Portable chest HISTORY: Fever. FINDINGS: An AP upright lordotic radiograph of the chest obtained essentially in expiration is compared to a previous examination 11/22/2019. Comparison is also made to a CT examination of the abdomen performed earlier this afternoon. The heart size is mildly enlarged. This is shown to reflect a moderately large pericardial effusion on the patient's CT examination. The left lung base is poorly penetrated/assessed. The CT study demonstrates only some minimal atelectasis at the left lung base and no pleural fluid. The right lung is clear. Impression: 1. Enlarged cardiac silhouette shown in large part reflect the presence of a moderatelylarge pericardial effusion on concurrently performed computed tomography. 2. The left lung base is not well penetrated/assessed on this radiograph. However, the CT study demonstrates only some minimal atelectasis at the left lung base and no left pleural fluid. The right lung is clear. Electronically signed by: Tomi Urena M.D. A/P Labs and radiology findings were personally reviewed by me. Active Problems: PVD (peripheral vascular disease) (CMS/HCC) Hyperlipidemia Dementia (CMS/HCC) Moderate malnutrition (CMS/HCC) Anemia Hypothyroidism Diabetes mellitus (CMS/HCC) Hypertension Osteomyelitis of Left foot in the setting of severe PAD and type 2 DM, s/p left AKA Rt LE osteo s/p AKA in 11/30 Positive blood culture, probably a contaminant. - XR showing acute osteo of the posterior calcaneous. S/p AKA--can discontinue IV abx. Appreciate podiatry consult. Prior hx of proteus bacteremia during admission in nov 2019. Repeat blood cultures no growth Expected acute blood loss anemia Check CBC in am Type 2 DM - A1c 8.6. On sliding scale and morning Lantus; stable ?? Essential HTN - norvasc ?? Acquired Hypothyroidism - synthroid increased ?? Dementia - A&Ox2 currently COVID 19 recovered Hypokalemia; replaced Ventral hernia Medical decision making: moderate DVT PROPHYLAXIS with Lovenox Summer Anguiano MD 06/20/2020 * Arley Peña MD - 06/19/2020 7:27 PM CDT Left AK Amputation done. EBL 350cc,none replaced. Ivs given 1000 cc lactate. Dictated. * Summer Anguiano MD - 06/19/2020 3:55 PM CDT General Medicine Daily Progress CC: leg pain Subjective The pt c/o leg pain today. Both the pt and her family want to have an amputation No n/v. No shortness of breath. No chest pain. Discussed with surgery, Dr. Peña CT AIF showed: 1. Right lower extremity: Occluded superficial femoral artery at the distal end of the stump. 2. Left lower extremity: Heavily calcified vessels with runoff of the posterior tibial artery. The anterior tibial artery is occluded at the mid calf but reconstitutes at the level of the ankle and the peroneal artery has thready opacification with occlusion distally. 3. Unchanged pericardial effusion. 4. Unchanged cystic mass in the right breast, could represent seroma, correlate with prior history. 5. Unchanged seroma associated with anterior abdominal wall mesh hernia repair. Objective Vitals: 24hr Min/Max: Temp Min: 36.4 ??C (97.6 ??F) Max: 37.1 ??C (98.7 ??F) Pulse Min: 70 Max: 80 BP Min: 115/49 Max: 148/86 Resp Min: 16 Max: 18 SpO2 Min: 96 % Max: 100 % Most Recent : Vitals: 06/19/20 1211 BP: 115/49 Pulse: 70 Resp: 18 Temp: 36.7 ??C (98.1 ??F) SpO2: 99% I/O last 2 completed shifts: In: - Out: 400 [Urine:400] I/O this shift: In: - Out: 1000 [Urine:1000] Body mass index is 30.12 kg/m??. Physical Exam Vitals and nursing note reviewed. Constitutional: General: She is not in acute distress. HENT: Head: Normocephalic. Cardiovascular: Rate and Rhythm: Normal rate and regular rhythm. Heart sounds: Normal heart sounds. Pulmonary: Effort: Pulmonary effort is normal. No respiratory distress. Breath sounds: Normal breath sounds. Abdominal: General: Bowel sounds are normal. Palpations: Abdomen is soft. Tenderness: There is no abdominal tenderness. Hernia: A hernia is present. Comments: Ventral hernia Musculoskeletal: Comments: S/p right AKA Skin: General: Skin is warm and dry. Neurological: Mental Status: She is alert and oriented to person, place, and time. Psychiatric: Mood and Affect: Mood normal. Minimal erythema of the left heel Current Medications: Current Facility-Administered Medications Medication Dose Route Frequency Provider Last Rate Last Admin ??? acetaminophen (TYLENOL) tablet 650 mg 650 mg oral Q4H PRN Tanisha Bundy MD 650 mg at 06/18/20 1016 ??? amLODIPine (NORVASC) tablet 10 mg 10 mg oral Daily Summer Anguiano MD 10 mg at 06/19/20 0812 ??? cefepime (MAXIPIME) 2,000 mg in sodium chloride 0.9% 100 mL IVPB 2,000 mg intravenous Q12H Tanisha Bundy MD 200 mL/hr at 06/19/20 1528 2,000 mg at 06/19/20 1528 ??? dextrose (GLUTOSE) 40 % gel 15 g 15 g oral Q15 Min PRN Tanisha Bundy MD Or ??? dextrose (D10W) 10% bolus 250 mL 250 mL intravenous Q15 Min PRN Tanisha Bundy MD ??? enoxaparin (LOVENOX) syringe 40 mg 40 mg subcutaneous Daily-2100 Summer Anguiano MD 40 mg at 06/18/202100 ??? gabapentin (NEURONTIN) capsule 300 mg 300 mg oral BID Tanisha Bundy MD 300 mg at 06/19/20 0812 ??? glucagon injection 1 mg 1 mg intramuscular Q30 Min PRN Tanisha Bundy MD ??? insulin glargine (LANTUS) 100 unit/mL injection 7 Units 7 Units subcutaneous QAM Summer Anguiano MD 7 Units at 06/19/20 0814 ??? insulin lispro (HumaLOG, ADMELOG) 100 unit/mL injection 1-2 Units 1-2 Units subcutaneous Nightly Tanisha Bundy MD 2 Units at 06/18/202100 ??? insulin lispro (HumaLOG, ADMELOG) 100 unit/mL injection 1-3 Units 1-3 Units subcutaneous TID with meals Tanisha Bundy MD 2 Units at 06/19/20 0600 ??? levothyroxine (SYNTHROID) tablet 100 mcg 100 mcg oral Daily - 0600 Summer Anguiano MD 100 mcg at 06/19/20 0515 ??? ondansetron ODT (ZOFRAN-ODT) disintegrating tablet 4 mg 4 mg oral Q6H PRN Tanisha Bundy MD Or ??? ondansetron (ZOFRAN) injection 4 mg 4 mg intravenous Q6H PRN Tanisha Bundy MD ??? oxyCODONE (ROXICODONE) tablet 5 mg 5 mg oral Q4H PRN Tanisha Bundy MD 5 mg at 06/19/20 0325 ??? polyethylene glycol (MIRALAX) packet 17 g 17 g oral Daily PRN Tanisha Bundy MD ??? vancomycin 1250 mg/250 mL in sodium chloride 0.9% (premix) 1,250 mg 15 mg/kg intravenous Q24H Tanisha Bundy MD 1,250 mg at 06/18/20 1730 Lab/Radiology/Diagnostic Review: CBC: Recent Labs Lab Units 06/17/20 0637 06/16/20 1318 WBC K/cumm 6.4 6.9 HEMOGLOBIN g/dL 9.8* 11.4* HEMATOCRIT % 29.9* 33.8* PLATELETS K/cumm 209 228 NEUTROS PCT % 83.2 77.2 LYMPHS PCT % 10.1 11.7 MONOS PCT % 5.7 7.1 EOS PCT % 0.0 2.5 CMP: Recent Labs Lab Units 06/19/20 1134 06/19/20 0556 06/19/20 0550 06/17/20 0645 06/17/20 0637 06/16/20 1639 06/16/20 1318 SODIUM mmol/L -- -- 135 -- 136 -- 135 POTASSIUM PLASMA mmol/L -- -- 3.9 -- 3.1* -- 4.1 CHLORIDE mmol/L -- -- 97 -- 95* -- 93* CO2 mmol/L -- -- 30 -- 32 -- 32 ANIONGAP mmol/L -- -- 8 -- 9 -- 10 GLUCOSE mg/dL -- -- 184 < > 170 < > 228* POC GLUCOSE MONITOR mg/dL 83 206* -- < > -- < > -- BUN SERUM mg/dL -- -- 16 -- 18 -- 15 CREATININE mg/dL -- -- 0.63 -- 0.89 -- 0.73 CALCIUM mg/dL -- -- 8.6 -- 8.6 -- 9.1 ALBUMIN g/dL -- -- -- -- 3.5 -- 3.6 ALK PHOS Units/L -- -- -- -- 27* -- 29* ALT Units/L -- -- -- -- 25 -- 29 AST Units/L -- -- -- -- 33 -- 48* BILIRUBIN TOTAL mg/dL -- -- -- -- 0.6 -- 0.9 < > = values in this interval not displayed. Coagulation: Recent Labs Lab Units 06/17/20 0637 APTT sec 32 INR 1.3* Radiology: XR Foot Left 3 or More Views Result Date: 06/16/2020 Narrative: EXAMINATION: XR FOOT LEFT 3 OR MORE VIEWS HISTORY: Left leg pain, concern for osteomyelitis FINDINGS: 3 nonweightbearing views of the left foot are submitted with comparison to radiographsdated 11/06/2019. The bones are osteopenic. 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 No evidence of fracture. There are dense atherosclerotic calcifications. There has been interval worsening erosion of the posterior calcaneus, most prominently near the Achilles insertion. There is an overlying soft tissue ulcer. Heterotopic ossification is noted at the base of the calcaneus and in the region of osseous erosion. Impression: 1. Progressive erosion of the posterior calcaneus since 11/06/2019 with probable acute osteomyelitis of the posterosuperior calcaneus near the Achilles insertion with overlying soft tissue ulceration Electronically signed by: Navya Oliva M.D. CT Head WO Contrast Result Date: 06/16/2020 Narrative: Exam: CT HEAD WO CONTRAST Date/Time of Exam: 06/16/2020 5:35 PM Reason For Exam: AMS. Diagnosis: Acute alteration of mental status. Findings: Axial images of the head were obtained without the use of contrast material. Sagittal and coronal reformats generated. Note is made that the patientreceived intravenous contrast material for CT examination of the abdomen performed earlier the sameday. No prior comparisons available. There are no signs of an intracranial mass lesion or mass effect. No signs of acute intracranial hemorrhage or acute segmental infarction the brain. The ventricles are normal in size. The sulci and cisterns are patent. There are benign calcifications in the basal ganglia bilaterally. Benign dural calcifications are present. Vascular calcifications are evident in the carotid siphons and distal vertebral arteries. The calvarium appears to be intact. The visualized paranasal sinus cavities are clear. The mastoid air cells are clear. Impression: 1. No acute intracranial process identified. 2. Mild diffuse atrophy of the brain. 3. Benign basal ganglia calcifications symmetrically. 4. Atherosclerotic calcification of the carotid siphons and distal vertebral arteries. Electronically signed by: Kenny Fabian M.D. CT Abdomen Pelvis W Contrast Result Date: 06/16/2020 Narrative: CT abdomen and pelvis with contrast HISTORY: Abdominal pain. Incarcerated hernia. TECHNIQUE: CT abdomen and pelvis was done with contrast 95 mL Optiray 350 intravenously. FINDINGS: Comparison outside CT of 11/08/2019. There is a rounded mass in the right breast incompletely included. Likely a fluid density. Clinical correlation recommended. There is atherosclerosis which is especially severe in the coronary arteries. There is large amount of pericardial fluid. Correlation with echocardiogram recommended. Mild pleural and parietal opacities at the lung bases. Size of the spleen is normal. Bilateral adrenal glands are normal. No definite solid renal mass. No definite hydronephrosis. Mild hepatic steatosis. Abnormally distended gallbladder. Consider correlation with sonogram. Moderate colonic. No definite evidence of pancreatitis or pancreatic mass. Fecal impaction with large amount of stool in the rectum. Mild diffuse bladder wall thickening. There is a large well-defined fluid density mass in the anterior abdominal wall intimately associated with prior anterior abdominal wall surgery site. Greatest transverse dimension nearly 11 cm across. Similar to prior study. Mild diffuse bladder wall thickening. Correlation with urinalysis recommended. No definite acute fractures a ppreciated. There are multiple patchy lucencies throughout the thoracic and lumbar spine of uncertain significance. Previously described as well either unchanged or minimally more prominent. Slightlydifferent techniques between the 2 CT scans. Clinical and lab correlation recommended. Consider MRIthoracic and lumbar spine. Impression: 1. Rounded mass density in the right breast incompletely included. Clinical correlationrecommended. 2. Large amount of pericardial fluid. Correlation with echocardiogram recommended. 3. Distended gallbladder. Clinical correlation recommended. 4. Fecal impaction. 5. Large fluid density mass in the anterior abdominal wall intimately associated with prior surgical site. Chronic and stable from prior study. 6. Patchy lucencies in the vertebral bodies as previously described and either unchanged or perhaps slightly more prominent or slightly increased. Recommended clinical and lab correlation and MRI thoracic and lumbar spine. 7. Additional details above. Electronically signed by: Aram Pederson M.D. XR Chest 1 Vw Portable Result Date: 06/16/2020 Narrative: Portable chest HISTORY: Fever. FINDINGS: An AP upright lordotic radiograph of the chest obtained essentially in expiration is compared to a previous examination 11/22/2019. Comparison is also made to a CT examination of the abdomen performed earlier this afternoon. The heart size is mildly enlarged. This is shown to reflect a moderately large pericardial effusion on the patient's CT examination. The left lung base is poorly penetrated/assessed. The CT study demonstrates only some minimal atelectasis at the left lung base and no pleural fluid. The right lung is clear. Impression: 1. Enlarged cardiac silhouette shown in large part reflect the presence of a moderatelylarge pericardial effusion on concurrently performed computed tomography. 2. The left lung base is not well penetrated/assessed on this radiograph. However, the CT study demonstrates only some minimal atelectasis at the left lung base and no left pleural fluid. The right lung is clear. Electronically signed by: Tomi Urena M.D. A/P Labs and radiology findings were personally reviewed by me. Active Problems: PVD (peripheral vascular disease) (CMS/HCC) Hyperlipidemia Dementia (CMS/HCC) Moderate malnutrition (CMS/HCC) Anemia Hypothyroidism Diabetes mellitus (CMS/HCC) Hypertension Osteomyelitis of Left foot in the setting of severe PAD and type 2 DM Rt LE osteo s/p AKA in 11/30 Positive blood culture, probably a contaminant. - XR showing acute osteo of the posterior calcaneous. Continue IV abx. Appreciate podiatry consult. Prior hx of proteus bacteremia during admission in nov 2019. Repeat blood cultures no growth already on antibiotics consult Dr. Peña who has seen in the past ?? Type 2 DM - A1c 8.6. On sliding scale and morning Lantus ?? Essential HTN - norvasc ?? Acquired Hypothyroidism - synthroid increased ?? Dementia - A&Ox2 currently COVID 19 recovered Hypokalemia; replaced Ventral hernia Medical decision making: moderate DVT PROPHYLAXIS with Lovenox Summer Anguiano MD 06/19/2020 * Layne Gonzalez RD - 06/19/2020 12:57 PM CDT Nutrition Follow-up Progress Note Encounter Date: 06/19/20 1:04 PM Nutrition Progress Summary: Patient is a 65 y.o. female. Admit Dx: OTHER ACUTE OSTEOMYELITIS OF LEFT FOOT (CMS/HCC). Admitted on 06/16/2020. Patient's intake is adequate. Objective Dietary Orders (From admission, onward) Start Ordered 06/19/20 0001 NPO Diet Sips with meds Diet effective midnight Question: NPO except: Answer: Sips with meds 06/18/20 2213 06/17/20 1102 Oral Nutrition Supplements Select Supplement: Glucerna Shake - Any Flavor 3 times daily Question: Select Supplement: Answer: Glucerna Shake - Any Flavor 06/17/20 1101 Anthropometrics Weight: 74.7 kg (164 lb 11.2 oz) Admission Weight : 74.7 kg Weight Change: -7.93 kg (-17.50 lbs) IBW/kg (Calculated) : 49.9 kg No intake or output data in the 24 hours ending 06/19/20 1304 Medications and Lab Review: Scheduled Meds: amLODIPine, 10 mg, oral, Daily cefepime, 2,000 mg, intravenous, Q12H enoxaparin, 40 mg, subcutaneous, Daily-2100 gabapentin, 300 mg, oral, BID insulin glargine, 7 Units, subcutaneous, QAM insulin lispro, 1-2 Units, subcutaneous, Nightly insulin lispro, 1-3 Units, subcutaneous, TID with meals levothyroxine, 100 mcg, oral, Daily - 0600 vancomycin, 15 mg/kg, intravenous, Q24H Continuous Infusions: PRN Meds: ??? acetaminophen ??? dextrose OR dextrose ??? glucagon ??? ondansetron ODT OR ondansetron ??? oxyCODONE ??? polyethylene glycol Sodium Date Value Ref Range Status 06/19/2020 135 135 - 145 mmol/L Final Potassium, pl Date Value Ref Range Status 06/19/2020 3.9 3.3 - 4.9 mmol/L Final Comment: Hemolyzed; potassium value may be falsely elevated by as much as 0.3 - 0.5 mmol/L. Suggest redraw and reanalysis BUN Date Value Ref Range Status 06/19/2020 16 8 - 25 mg/dL Final Creatinine Date Value Ref Range Status 06/19/2020 0.63 0.60 - 1.10 mg/dL Final Phosphorus, pl Date Value Ref Range Status 06/17/2020 3.5 2.3 - 4.5 mg/dL Final Albumin Date Value Ref Range Status 06/17/2020 3.5 3.5 - 5.0 g/dL Final Magnesium Date Value Ref Range Status 06/17/2020 1.8 1.4 - 2.5 mg/dL Final Calcium Date Value Ref Range Status 06/19/2020 8.6 8.5 - 10.3 mg/dL Final ALT Date Value Ref Range Status 06/17/2020 25 7 - 45 Units/L Final AST Date Value Ref Range Status 06/17/2020 33 10 - 45 Units/L Final Alk phos Date Value Ref Range Status 06/17/2020 27 (L) 40 - 130 Units/L Final Lab Results Component Value Date HGBA1C 8.0 (H) 06/18/2020 Nursing Assessment: Last BM Date: 06/19/20 Bowel Sounds (All Quadrants): Active Grayson Scale Score: 12 Skin Integrity: Scaling Nutrition Needs Calculations: Calculated Energy Needs Using Equations Weight: 74.7 kg (164 lb 11.2 oz) Estimated Protein Needs Type of Weight Used for Estimated Protein : Cosby Protein Needs Based on g/k.5 Total Protein Estimated Needs (gm): 74.85 Kcal/kg Type of Weight Used for Estimated Kcals: Current Kcal/k Total Kcal/kg Estimated Needs : 1494.14 Wt Readings from Last 10 Encounters: 06/16/20 74.7 kg (164 lb 11.2 oz) 11/14/19 82.6 kg (182 lb 3.2 oz) 06/21/18 95.3 kg (210 lb) 06/12/18 95.3 kg (210 lb) 05/15/18 93.4 kg (206 lb) 10/30/17 94.8 kg (209 lb) Impression: Pt seen for follow up. Pt states she is eating well and was eating well [employer]. Pt states she eats softer foods at home like mashed potatoes, eggs, and other. Pt supposed to have above the knee amputation today, surgery still pending. Difficult to get a good understanding of po intake as pt speech is hard to understand at times. If surgery proceeds pt would benefit from protein educationand additional supplements. Plan: Monitor POC. Current Nutrition Issues: Nutrition Diagnosis 1: Increased nutrient needs (protein) Related to: Wounds Evidenced by: Physicalfinding Nutrition Plan: Interventions: Medical food supplement Monitoring and Evaluation: Labs, Plan of care, PO intake, Supplement tolerance Goals: Oral intake to meet 75% estimated nutritional needs by next assessment Layne Gonzalez RD, LD * Summer Anguiano MD - 06/18/2020 4:41 PM CDT General Medicine Daily Progress CC: leg pain Subjective The pt denies leg pain today. No n/v. No shortness of breath. No chest pain. C/o headache She was seen by podiatry. CT AIF showed: 1. Right lower extremity: Occluded superficial femoral artery at the distal end of the stump. 2. Left lower extremity: Heavily calcified vessels with runoff of the posterior tibial artery. The anterior tibial artery is occluded at the mid calf but reconstitutes at the level of the ankle and the peroneal artery has thready opacification with occlusion distally. 3. Unchanged pericardial effusion. 4. Unchanged cystic mass in the right breast, could represent seroma, correlate with prior history. 5. Unchanged seroma associated with anterior abdominal wall mesh hernia repair. Objective Vitals: 24hr Min/Max: Temp Min: 36.3 ??C (97.3 ??F) Max: 36.9 ??C (98.5 ??F) Pulse Min: 71 Max: 80 BP Min: 137/61 Max: 167/91 Resp Min: 18 Max: 20 SpO2 Min: 97 % Max: 100 % Most Recent : Vitals: 06/18/20 1302 BP: 167/91 Pulse: 80 Resp: 19 Temp: 36.3 ??C (97.3 ??F) SpO2: 100% I/O last 2 completed shifts: In: - Out: 800 [Urine:800] I/O this shift: In: - Out: 400 [Urine:400] Body mass index is 30.12 kg/m??. Physical Exam Vitals and nursing note reviewed. Constitutional: General: She is not in acute distress. HENT: Head: Normocephalic. Cardiovascular: Rate and Rhythm: Normal rate and regular rhythm. Heart sounds: Normal heart sounds. Pulmonary: Effort: Pulmonary effort is normal. No respiratory distress. Breath sounds: Normal breath sounds. Abdominal: General: Bowel sounds are normal. Palpations: Abdomen is soft. Tenderness: There is no abdominal tenderness. Hernia: A hernia is present. Comments: Ventral hernia Musculoskeletal: Comments: S/p right AKA Skin: General: Skin is warm and dry. Neurological: Mental Status: She is alert and oriented to person, place, and time. Psychiatric: Mood and Affect: Mood normal. Minimal erythema of the left heel Current Medications: Current Facility-Administered Medications Medication Dose Route Frequency Provider Last Rate Last Admin ??? acetaminophen (TYLENOL) tablet 650 mg 650 mg oral Q4H PRN Tanisha Bundy MD 650 mg at 06/18/20 1016 ??? cefepime (MAXIPIME) 2,000 mg in sodium chloride 0.9% 100 mL IVPB 2,000 mg intravenous Q12H Tanisha Bundy MD 200 mL/hr at 06/18/20 0410 2,000 mg at 06/18/20 0410 ??? dextrose (GLUTOSE) 40 % gel 15 g 15 g oral Q15 Min PRN Tanisha Bundy MD Or ??? dextrose (D10W) 10% bolus 250 mL 250 mL intravenous Q15 Min PRN Tanisha Bundy MD ??? enoxaparin (LOVENOX) syringe 40 mg 40 mg subcutaneous Daily-2100 Summer Anguiano MD 40 mg at 06/17/20 2219 ??? gabapentin (NEURONTIN) capsule 300 mg 300 mg oral BID Tanisha Bundy MD 300 mg at 06/18/20 0912 ??? glucagon injection 1 mg 1 mg intramuscular Q30 Min PRN Tanisha Bundy MD ??? insulin lispro (HumaLOG, ADMELOG) 100 unit/mL injection 1-2 Units 1-2 Units subcutaneous Nightly Tanisha Bundy MD 2 Units at 06/17/203 ??? insulin lispro (HumaLOG, ADMELOG) 100 unit/mL injection 1-3 Units 1-3 Units subcutaneous TID with meals Tanisha Bundy MD 1 Units at 06/18/20 1128 ??? [START ON 06/19/2020] levothyroxine (SYNTHROID) tablet 100 mcg 100 mcg oral Daily - 0600 Summer Anguiano MD ??? ondansetron ODT (ZOFRAN-ODT) disintegrating tablet 4 mg 4 mg oral Q6H PRN Tanisha Bundy MD Or ??? ondansetron (ZOFRAN) injection 4 mg 4 mg intravenous Q6H PRN Tanisha Bundy MD ??? oxyCODONE (ROXICODONE) tablet 5 mg 5 mg oral Q4H PRN Tanisha Bundy MD ??? polyethylene glycol (MIRALAX) packet 17 g 17 g oral Daily PRN Tanisha Bundy MD ??? vancomycin 1250 mg/250 mL in sodium chloride 0.9% (premix) 1,250 mg 15 mg/kg intravenous Q24H Tanisha Bundy MD 1,250 mg at 06/17/20 1835 Lab/Radiology/Diagnostic Review: CBC: Recent Labs Lab Units 06/17/20 0637 06/16/20 1318 WBC K/cumm 6.4 6.9 HEMOGLOBIN g/dL 9.8* 11.4* HEMATOCRIT % 29.9* 33.8* PLATELETS K/cumm 209 228 NEUTROS PCT % 83.2 77.2 LYMPHS PCT % 10.1 11.7 MONOS PCT % 5.7 7.1 EOS PCT % 0.0 2.5 CMP: Recent Labs Lab Units 06/18/20 1127 06/18/20 0623 06/17/20 2222 06/17/20 0645 06/17/20 0637 06/16/20 1639 06/16/20 1318 SODIUM mmol/L -- -- -- -- 136 -- 135 POTASSIUM PLASMA mmol/L -- -- -- -- 3.1* -- 4.1 CHLORIDE mmol/L -- -- -- -- 95* -- 93* CO2 mmol/L -- -- -- -- 32 -- 32 ANIONGAP mmol/L -- -- -- -- 9 -- 10 GLUCOSE mg/dL -- -- -- -- 170 < > 228* POC GLUCOSE MONITOR mg/dL 177* 181* 270* < > -- < > -- BUN SERUM mg/dL -- -- -- -- 18 -- 15 CREATININE mg/dL -- -- -- -- 0.89 -- 0.73 CALCIUM mg/dL -- -- -- -- 8.6 -- 9.1 ALBUMIN g/dL -- -- -- -- 3.5 -- 3.6 ALK PHOS Units/L -- -- -- -- 27* -- 29* ALT Units/L -- -- -- -- 25 -- 29 AST Units/L -- -- -- -- 33 -- 48* BILIRUBIN TOTAL mg/dL -- -- -- -- 0.6 -- 0.9 < > = values in this interval not displayed. Coagulation: Recent Labs Lab Units 06/17/20 0637 APTT sec 32 INR 1.3* Radiology: XR Foot Left 3 or More Views Result Date: 06/16/2020 Narrative: EXAMINATION: XR FOOT LEFT 3 OR MORE VIEWS HISTORY: Left leg pain, concern for osteomyelitis FINDINGS: 3 nonweightbearing views of the left foot are submitted with comparison to radiographsdated 11/06/2019. The bones are osteopenic. 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 No evidence of fracture. There are dense atherosclerotic calcifications. There has been interval worsening erosion of the posterior calcaneus, most prominently near the Achilles insertion. There is an overlying soft tissue ulcer. Heterotopic ossification is noted at the base of the calcaneus and in the region of osseous erosion. Impression: 1. Progressive erosion of the posterior calcaneus since 11/06/2019 with probable acute osteomyelitis of the posterosuperior calcaneus near the Achilles insertion with overlying soft tissue ulceration Electronically signed by: Navya Oliva M.D. CT Head WO Contrast Result Date: 06/16/2020 Narrative: Exam: CT HEAD WO CONTRAST Date/Time of Exam: 06/16/2020 5:35 PM Reason For Exam: AMS. Diagnosis: Acute alteration of mental status. Findings: Axial images of the head were obtained without the use of contrast material. Sagittal and coronal reformats generated. Note is made that the patientreceived intravenous contrast material for CT examination of the abdomen performed earlier the sameday. No prior comparisons available. There are no signs of an intracranial mass lesion or mass effect. No signs of acute intracranial hemorrhage or acute segmental infarction the brain. The ventricles are normal in size. The sulci and cisterns are patent. There are benign calcifications in the basal ganglia bilaterally. Benign dural calcifications are present. Vascular calcifications are evident in the carotid siphons and distal vertebral arteries. The calvarium appears to be intact. The visualized paranasal sinus cavities are clear. The mastoid air cells are clear. Impression: 1. No acute intracranial process identified. 2. Mild diffuse atrophy of the brain. 3. Benign basal ganglia calcifications symmetrically. 4. Atherosclerotic calcification of the carotid siphons and distal vertebral arteries. Electronically signed by: Kenny Fabian M.D. CT Abdomen Pelvis W Contrast Result Date: 06/16/2020 Narrative: CT abdomen and pelvis with contrast HISTORY: Abdominal pain. Incarcerated hernia. TECHNIQUE: CT abdomen and pelvis was done with contrast 95 mL Optiray 350 intravenously. FINDINGS: Comparison outside CT of 11/08/2019. There is a rounded mass in the right breast incompletely included. Likely a fluid density. Clinical correlation recommended. There is atherosclerosis which is especially severe in the coronary arteries. There is large amount of pericardial fluid. Correlation with echocardiogram recommended. Mild pleural and parietal opacities at the lung bases. Size of the spleen is normal. Bilateral adrenal glands are normal. No definite solid renal mass. No definite hydronephrosis. Mild hepatic steatosis. Abnormally distended gallbladder. Consider correlation with sonogram. Moderate colonic. No definite evidence of pancreatitis or pancreatic mass. Fecal impaction with large amount of stool in the rectum. Mild diffuse bladder wall thickening. There is a large well-defined fluid density mass in the anterior abdominal wall intimately associated with prior anterior abdominal wall surgery site. Greatest transverse dimension nearly 11 cm across. Similar to prior study. Mild diffuse bladder wall thickening. Correlation with urinalysis recommended. No definite acute fractures a ppreciated. There are multiple patchy lucencies throughout the thoracic and lumbar spine of uncertain significance. Previously described as well either unchanged or minimally more prominent. Slightlydifferent techniques between the 2 CT scans. Clinical and lab correlation recommended. Consider MRIthoracic and lumbar spine. Impression: 1. Rounded mass density in the right breast incompletely included. Clinical correlationrecommended. 2. Large amount of pericardial fluid. Correlation with echocardiogram recommended. 3. Distended gallbladder. Clinical correlation recommended. 4. Fecal impaction. 5. Large fluid density mass in the anterior abdominal wall intimately associated with prior surgical site. Chronic and stable from prior study. 6. Patchy lucencies in the vertebral bodies as previously described and either unchanged or perhaps slightly more prominent or slightly increased. Recommended clinical and lab correlation and MRI thoracic and lumbar spine. 7. Additional details above. Electronically signed by: Aram Pederson M.D. XR Chest 1 Vw Portable Result Date: 06/16/2020 Narrative: Portable chest HISTORY: Fever. FINDINGS: An AP upright lordotic radiograph of the chest obtained essentially in expiration is compared to a previous examination 11/22/2019. Comparison is also made to a CT examination of the abdomen performed earlier this afternoon. The heart size is mildly enlarged. This is shown to reflect a moderately large pericardial effusion on the patient's CT examination. The left lung base is poorly penetrated/assessed. The CT study demonstrates only some minimal atelectasis at the left lung base and no pleural fluid. The right lung is clear. Impression: 1. Enlarged cardiac silhouette shown in large part reflect the presence of a moderatelylarge pericardial effusion on concurrently performed computed tomography. 2. The left lung base is not well penetrated/assessed on this radiograph. However, the CT study demonstrates only some minimal atelectasis at the left lung base and no left pleural fluid. The right lung is clear. Electronically signed by: Tomi Urena M.D. A/P Labs and radiology findings were personally reviewed by me. Active Problems: PVD (peripheral vascular disease) (CMS/HCC) Hyperlipidemia Dementia (CMS/HCC) Moderate malnutrition (CMS/HCC) Anemia Hypothyroidism Diabetes mellitus (CMS/HCC) Hypertension Osteomyelitis of Left foot in the setting of severe PAD and type 2 DM Rt LE osteo s/p AKA in 11/30 Positive blood culture, probably a contaminant. - XR showing acute osteo of the posterior calcaneous. Continue IV abx. Appreciate podiatry consult. Prior hx of proteus bacteremia during admission in nov 2019. Repeat blood cultures no growth already on antibiotics consult Dr. Peña who has seen in the past ?? Type 2 DM - A1c 8.6. On sliding scale. Add morning Lantus ?? Essential HTN - resume norvasc ?? Acquired Hypothyroidism - synthroid increased ?? Dementia - A&Ox2 currently COVID 19 recovered Hypokalemia; replace and recheck Ventral hernia Medical decision making: moderate DVT PROPHYLAXIS with Lovenox Summer Anguiano MD 06/18/2020 * Summer Anguiano MD - 06/17/2020 3:33 PM CDT General Medicine Daily Progress CC: leg pain Subjective The pt c/o minimal leg pain today. She denies any pain from her ventral hernia. No n/v. No shortness of breath. No chest pain. Discussed with the patient's daughter at [phone] She reports the patient is not ambulatory. She spends her days in a chair or in bed. She reports the pt is now willing for an amputation if necessary. She was seen by podiatry. ZAYNAB's were obtained. D/w Dr. Martinez; Will have CT AIF to assess circulation. Objective Vitals: 24hr Min/Max: Temp Min: 36.3 ??C (97.4 ??F) Max: 38 ??C (100.4 ??F) Pulse Min: 71 Max: 88 BP Min: 93/52 Max: 156/71 Resp Min: 16 Max: 19 SpO2 Min: 93 % Max: 100 % Most Recent : Vitals: 06/17/20 1216 BP: 156/71 Pulse: 78 Resp: 19 Temp: 36.4 ??C (97.5 ??F) SpO2: 97% I/O last 2 completed shifts: In: 250 [IV Piggyback:250] Out: - No intake/output data recorded. Body mass index is 30.12 kg/m??. Physical Exam Vitals and nursing note reviewed. Constitutional: General: She is not in acute distress. HENT: Head: Normocephalic. Cardiovascular: Rate and Rhythm: Normal rate and regular rhythm. Heart sounds: Normal heart sounds. Pulmonary: Effort: Pulmonary effort is normal. No respiratory distress. Breath sounds: Normal breath sounds. Abdominal: General: Bowel sounds are normal. Palpations: Abdomen is soft. Tenderness: There is no abdominal tenderness. Hernia: A hernia is present. Comments: Ventral hernia Musculoskeletal: Comments: S/p right AKA Skin: General: Skin is warm and dry. Neurological: Mental Status: She is alert and oriented to person, place, and time. Psychiatric: Mood and Affect: Mood normal. Minimal erythema of the left heel Current Medications: Current Facility-Administered Medications Medication Dose Route Frequency Provider Last Rate Last Admin ??? acetaminophen (TYLENOL) tablet 650 mg 650 mg oral Q4H PRN Tanisha Bundy MD ??? cefepime (MAXIPIME) 2,000 mg in sodium chloride 0.9% 100 mL IVPB 2,000 mg intravenous Q12H Tanisha Bundy MD 200 mL/hr at 06/17/20 0529 2,000 mg at 06/17/20 0529 ??? dextrose (GLUTOSE) 40 % gel 15 g 15 g oral Q15 Min PRN Tanisha Bundy MD Or ??? dextrose (D10W) 10% bolus 250 mL 250 mL intravenous Q15 Min PRN Tanisha Bundy MD ??? gabapentin (NEURONTIN) capsule 300 mg 300 mg oral BID Tanisha Bundy MD 300 mg at 06/17/20 0852 ??? glucagon injection 1 mg 1 mg intramuscular Q30 Min PRN Tanisha Bundy MD ??? insulin lispro (HumaLOG, ADMELOG) 100 unit/mL injection 1-2 Units 1-2 Units subcutaneous Nightly Tanisha Bundy MD ??? insulin lispro (HumaLOG, ADMELOG) 100 unit/mL injection 1-3 Units 1-3 Units subcutaneous TID with meals Tanisha Bundy MD 1 Units at 06/17/20 0647 ??? levothyroxine (SYNTHROID) tablet 75 mcg 75 mcg oral Daily - 0600 Tanihsa Bundy MD 75 mcgat 06/17/20 0532 ??? ondansetron ODT (ZOFRAN-ODT) disintegrating tablet 4 mg 4 mg oral Q6H PRN Tanisha Bundy MD Or ??? ondansetron (ZOFRAN) injection 4 mg 4 mg intravenous Q6H PRN Tanisha Bundy MD ??? oxyCODONE (ROXICODONE) tablet 5 mg 5 mg oral Q4H PRN Tanisha Bundy MD ??? polyethylene glycol (MIRALAX) packet 17 g 17 g oral Daily PRN Tanisha Bundy MD ??? vancomycin 1250 mg/250 mL in sodium chloride 0.9% (premix) 1,250 mg 15 mg/kg intravenous Q24H Tanisha Bundy MD Lab/Radiology/Diagnostic Review: CBC: Recent Labs Lab Units 06/17/20 0637 06/16/20 1318 WBC K/cumm 6.4 6.9 HEMOGLOBIN g/dL 9.8* 11.4* HEMATOCRIT % 29.9* 33.8* PLATELETS K/cumm 209 228 NEUTROS PCT % 83.2 77.2 LYMPHS PCT % 10.1 11.7 MONOS PCT % 5.7 7.1 EOS PCT % 0.0 2.5 CMP: Recent Labs Lab Units 06/17/20 1157 06/17/20 0645 06/17/20 0637 06/16/20 1639 06/16/20 1318 SODIUM mmol/L -- -- 136 -- 135 POTASSIUM PLASMA mmol/L -- -- 3.1* -- 4.1 CHLORIDE mmol/L -- -- 95* -- 93* CO2 mmol/L -- -- 32 -- 32 ANIONGAP mmol/L -- -- 9 -- 10 GLUCOSE mg/dL -- -- 170 < > 228* POC GLUCOSE MONITOR mg/dL 150* 185* -- < > -- BUN SERUM mg/dL -- -- 18 -- 15 CREATININE mg/dL -- -- 0.89 -- 0.73 CALCIUM mg/dL -- -- 8.6 -- 9.1 ALBUMIN g/dL -- -- 3.5 -- 3.6 ALK PHOS Units/L -- -- 27* -- 29* ALT Units/L -- -- 25 -- 29 AST Units/L -- -- 33 -- 48* BILIRUBIN TOTAL mg/dL -- -- 0.6 -- 0.9 < > = values in this interval not displayed. Coagulation: Recent Labs Lab Units 06/17/20 0637 APTT sec 32 INR 1.3* Radiology: XR Foot Left 3 or More Views Result Date: 06/16/2020 Narrative: EXAMINATION: XR FOOT LEFT 3 OR MORE VIEWS HISTORY: Left leg pain, concern for osteomyelitis FINDINGS: 3 nonweightbearing views of the left foot are submitted with comparison to radiographsdated 11/06/2019. The bones are osteopenic. 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 No evidence of fracture. There are dense atherosclerotic calcifications. There has been interval worsening erosion of the posterior calcaneus, most prominently near the Achilles insertion. There is an overlying soft tissue ulcer. Heterotopic ossification is noted at the base of the calcaneus and in the region of osseous erosion. Impression: 1. Progressive erosion of the posterior calcaneus since 11/06/2019 with probable acute osteomyelitis of the posterosuperior calcaneus near the Achilles insertion with overlying soft tissue ulceration Electronically signed by: Navya Oliva M.D. CT Head WO Contrast Result Date: 06/16/2020 Narrative: Exam: CT HEAD WO CONTRAST Date/Time of Exam: 06/16/2020 5:35 PM Reason For Exam: AMS. Diagnosis: Acute alteration of mental status. Findings: Axial images of the head were obtained without the use of contrast material. Sagittal and coronal reformats generated. Note is made that the patientreceived intravenous contrast material for CT examination of the abdomen performed earlier the sameday. No prior comparisons available. There are no signs of an intracranial mass lesion or mass effect. No signs of acute intracranial hemorrhage or acute segmental infarction the brain. The ventricles are normal in size. The sulci and cisterns are patent. There are benign calcifications in the basal ganglia bilaterally. Benign dural calcifications are present. Vascular calcifications are evident in the carotid siphons and distal vertebral arteries. The calvarium appears to be intact. The visualized paranasal sinus cavities are clear. The mastoid air cells are clear. Impression: 1. No acute intracranial process identified. 2. Mild diffuse atrophy of the brain. 3. Benign basal ganglia calcifications symmetrically. 4. Atherosclerotic calcification of the carotid siphons and distal vertebral arteries. Electronically signed by: Kenny Fabian M.D. CT Abdomen Pelvis W Contrast Result Date: 06/16/2020 Narrative: CT abdomen and pelvis with contrast HISTORY: Abdominal pain. Incarcerated hernia. TECHNIQUE: CT abdomen and pelvis was done with contrast 95 mL Optiray 350 intravenously. FINDINGS: Comparison outside CT of 11/08/2019. There is a rounded mass in the right breast incompletely included. Likely a fluid density. Clinical correlation recommended. There is atherosclerosis which is especially severe in the coronary arteries. There is large amount of pericardial fluid. Correlation with echocardiogram recommended. Mild pleural and parietal opacities at the lung bases. Size of the spleen is normal. Bilateral adrenal glands are normal. No definite solid renal mass. No definite hydronephrosis. Mild hepatic steatosis. Abnormally distended gallbladder. Consider correlation with sonogram. Moderate colonic. No definite evidence of pancreatitis or pancreatic mass. Fecal impaction with large amount of stool in the rectum. Mild diffuse bladder wall thickening. There is a large well-defined fluid density mass in the anterior abdominal wall intimately associated with prior anterior abdominal wall surgery site. Greatest transverse dimension nearly 11 cm across. Similar to prior study. Mild diffuse bladder wall thickening. Correlation with urinalysis recommended. No definite acute fractures a ppreciated. There are multiple patchy lucencies throughout the thoracic and lumbar spine of uncertain significance. Previously described as well either unchanged or minimally more prominent. Slightlydifferent techniques between the 2 CT scans. Clinical and lab correlation recommended. Consider MRIthoracic and lumbar spine. Impression: 1. Rounded mass density in the right breast incompletely included. Clinical correlationrecommended. 2. Large amount of pericardial fluid. Correlation with echocardiogram recommended. 3. Distended gallbladder. Clinical correlation recommended. 4. Fecal impaction. 5. Large fluid density mass in the anterior abdominal wall intimately associated with prior surgical site. Chronic and stable from prior study. 6. Patchy lucencies in the vertebral bodies as previously described and either unchanged or perhaps slightly more prominent or slightly increased. Recommended clinical and lab correlation and MRI thoracic and lumbar spine. 7. Additional details above. Electronically signed by: Aram Pederson M.D. XR Chest 1 Vw Portable Result Date: 06/16/2020 Narrative: Portable chest HISTORY: Fever. FINDINGS: An AP upright lordotic radiograph of the chest obtained essentially in expiration is compared to a previous examination 11/22/2019. Comparison is also made to a CT examination of the abdomen performed earlier this afternoon. The heart size is mildly enlarged. This is shown to reflect a moderately large pericardial effusion on the patient's CT examination. The left lung base is poorly penetrated/assessed. The CT study demonstrates only some minimal atelectasis at the left lung base and no pleural fluid. The right lung is clear. Impression: 1. Enlarged cardiac silhouette shown in large part reflect the presence of a moderatelylarge pericardial effusion on concurrently performed computed tomography. 2. The left lung base is not well penetrated/assessed on this radiograph. However, the CT study demonstrates only some minimal atelectasis at the left lung base and no left pleural fluid. The right lung is clear. Electronically signed by: Tomi Urena M.D. A/P Labs and radiology findings were personally reviewed by me. Active Problems: PVD (peripheral vascular disease) (CMS/HCC) Hyperlipidemia Dementia (CMS/HCC) Moderate malnutrition (CMS/HCC) Anemia Hypothyroidism Diabetes mellitus (CMS/HCC) Hypertension Osteomyelitis of Left foot in the setting of severe PAD and type 2 DM Rt LE osteo s/p AKA in 11/30 Positive blood culture - XR showing acute osteo of the posterior calcaneous. Continue IV abx. Appreciate podiatry consult.Also ordered ZAYNAB, will check CT AIF, d/w vascular surgery - 1/2 blood cx positive for Staph Prior hx of proteus bacteremia during admission in nov 2019. Repeat blood cultures already on antibiotics ?? Type 2 DM - A1c 8.6. On sliding scale. BS's adequate ?? Essential HTN - stable. Will hold BP meds at this time, can always restart if needed ?? Acquired Hypothyroidism - check TSH/T4. Continue synthroid ?? Dementia - A&Ox2 currently COVID 19 recovered Ventral hernia Medical decision making: complex DVT PROPHYLAXIS with Lovenox Summer Anguiano MD 06/17/2020 * Macie Joe, RD - 06/17/2020 1:33 PM CDT Initial Nutrition Assessment Reason for Assessment: Screened at Nutrition Risk and Initial Nutrition Assessment Encounter Date: 06/17/20 1:33 PM Nutrition Evaluation: Patient is a 65 y.o. female. Admit Dx: OTHER ACUTE OSTEOMYELITIS OF LEFT FOOT (CMS/HCC). Admitted on 06/16/2020, current LOS is 1 days. Patient's intake is inadequate. Objective Past Medical History: Diagnosis Date ??? Dementia (CMS/HCC) ??? Diabetes mellitus (CMS/HCC) ??? Hypertension Past Surgical History: Procedure Laterality Date ??? HERNIA REPAIR Anthropometrics Weight: 74.7 kg (164 lb 11.2 oz) Admission Weight : 74.7 kg Weight Change: -7.93 kg (-17.50 lbs) IBW/kg (Calculated) : 49.9 kg Intake/Output Summary (Last 24 hours) at 06/17/2020 1333 Last data filed at 06/17/2020 1215 Gross per 24 hour Intake 250 ml Output 0 ml Net 250 ml Medications and Lab Review: Scheduled Meds: cefepime, 2,000 mg, intravenous, Q12H gabapentin, 300 mg, oral, BID insulin lispro, 1-2 Units, subcutaneous, Nightly insulin lispro, 1-3 Units, subcutaneous, TID with meals levothyroxine, 75 mcg, oral, Daily - 0600 vancomycin, 15 mg/kg, intravenous, Q24H Continuous Infusions: PRN Meds: ??? acetaminophen ??? dextrose OR dextrose ??? glucagon ??? ondansetron ODT OR ondansetron ??? oxyCODONE ??? polyethylene glycol Sodium Date Value Ref Range Status 06/17/2020 136 135 - 145 mmol/L Final Potassium, pl Date Value Ref Range Status 06/17/2020 3.1 (L) 3.3 - 4.9 mmol/L Final BUN Date Value Ref Range Status 06/17/2020 18 8 - 25 mg/dL Final Creatinine Date Value Ref Range Status 06/17/2020 0.89 0.60 - 1.10 mg/dL Final Phosphorus, pl Date Value Ref Range Status 06/17/2020 3.5 2.3 - 4.5 mg/dL Final Albumin Date Value Ref Range Status 06/17/2020 3.5 3.5 - 5.0 g/dL Final Magnesium Date Value Ref Range Status 06/17/2020 1.8 1.4 - 2.5 mg/dL Final Calcium Date Value Ref Range Status 06/17/2020 8.6 8.5 - 10.3 mg/dL Final ALT Date Value Ref Range Status 06/17/2020 25 7 - 45 Units/L Final AST Date Value Ref Range Status 06/17/2020 33 10 - 45 Units/L Final Alk phos Date Value Ref Range Status 06/17/2020 27 (L) 40 - 130 Units/L Final Lab Results Component Value Date HGBA1C 8.6 (H) 11/07/2019 Nursing Assessment: Last BM Date: (pt unable to report) Bowel Sounds (All Quadrants): Hypoactive, Present Grayson Scale Score: 12 Skin Integrity: Cracking Dietary Orders (From admission, onward) Start Ordered 06/17/20 1224 Adult Diet Modified Consistency; Pureed; Consistent Carbohydrate Diet effective now Question Answer Comment ([facility]) Diet type Modified Consistency Modified Consistency: Pureed Diabetic: Consistent Carbohydrate 06/17/20 1224 06/17/20 1102 Oral Nutrition Supplements Select Supplement: Glucerna Shake - Any Flavor 3 times daily Question: Select Supplement: Answer: Glucerna Shake - Any Flavor 06/17/20 1101 ASPEN Malnutrition Assessment: Nutrition Focused Physical Exam Notes: Subcutaneous Fat Loss Orbital Region - Surrounding the Eye: Somewhat hollow look Muscle Loss [place] Region - Temporalis Muscle: Can see/feel well-defined muscle Clavicle Bone Region - Pectoralis Major, Deltoid, Trapezius Muscles: Not visible in male, visible but not prominent in female Clavicle and Acromion Bone Region - Deltoid Muscle: Rounded, curves at arm/shoulder/neck Dorsal Hand - Interosseous Muscle: Muscle bulges, could be flat in some well nourished people Nutrition Needs Calculations: Calculated Energy Needs Using Equations Weight: 74.7 kg (164 lb 11.2 oz) Estimated Protein Needs Type of Weight Used for Estimated Protein : Cosby Protein Needs Based on g/k.5 Total Protein Estimated Needs (gm): 74.85 Kcal/kg Type of Weight Used for Estimated Kcals: Current Kcal/k Total Kcal/kg Estimated Needs : 1494.14 Wt Readings from Last 3 Encounters: 06/16/20 74.7 kg (164 lb 11.2 oz) 11/14/19 82.6 kg (182 lb 3.2 oz) 06/21/18 95.3 kg (210 lb) Nutritional Needs and Diagnosis: Nutrition Diagnosis 1: Increased nutrient needs (protein) Related to: Wounds Evidenced by: Physicalfinding Impression: Screened d/t pressure injury. Pt with osteomyelitis of L foot. Hx of DM, dementia, R AKA d/t osteomyelitis. Pt AOx1-2 at baseline, no family at bedside to help answer questions. Pt was [employer]hospice [employer]. Did not observe any wasting on NFPE. Wt decreasing per documentation but wt from 11/13 was prior to amputation. Per RN, pt with healing pressure injuries to sacrum and ischium. Did not eatbkft this am. Now on pureed diet, was on mechanical soft diet at previous admit. Observed pt had poor dentition. Will trial glucerna TID. Plan: glucerna TID, monitor intakes of pureed diet, f/u for further assessment when/if family available Intervention and Monitoring: Goals: Oral intake to meet 75% estimated nutritional needs by next assessment Interventions: Medical food supplement Monitoring and Evaluation: Labs, Plan of care, PO intake, Supplement tolerance Macie Joe RD,LD documented in this encounter H&P Notes * Spenser Ascencio MD - 06/21/2020 12:00 AM CDT CRITICAL CARE ADMISSION NOTE Ms. Gil is a 65-year-old female admitted back on 06/16/2020. She has a history of dementia, osteomyelitis, diabetes, hypertension and recovered COVID- 19. Her story is such obtained mainly from previous notes as she is not a very good historian, but she was back at [facility] in November of 2019 with a right heel ulcer with osteo and previous right AKA. She had osteo on theleft lower extremity and declined amputation at that time and requested palliative care, but was discharged to hospice. Initial plan was to go home with a PICC line for antibiotics, but that plan wascanceled after hospice was consulted. Ultimately patient was taken off of hospice. She was brought in now for interest out of amputation of her foot. 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 Tonight however at about 5-5:30 she had an episode of vomiting of brownish material. It is unclear exactly how much that was as the notes are very vague and no one could identify howmuch. She had a hemoglobin of 8.2 at 7 p.m. which was up after transfusion from today when she was 6.1. She had another episode of some vomiting of brown material shortly thereafter, again unclear exactly how much. What is interesting to note is that in the last few days her abdomen is supposed to be soft. It is now more distended and firm along with her ventral hernia. She had a CT done on which showed large amounts of stool and fecal impaction. She has not had but 1 bowel movement since then. She does have tenderness around her abdomen. Past Medical History Remarkable for: 1. Dementia. 2. Diabetes mellitus. 3. Hypertension. 4. Hernia repair. 5. Large ventral hernia. Medications Have been reviewed. Allergies CODEINE. Social History She has never smoked. No alcohol history. No drug history. Family History Diabetes in her mother and heart disease in her father. Review of Systems Really difficult to obtain as she is not a very good historian, but she does mention abdominal discomfort on 14-point review of systems. Physical Exam Heart rate of 85, systolic blood pressure 119/74, respiratory rate of 15. General: Patient is awake and alert. HEENT: Grossly unremarkable. Neck: Supple without JVD. Chest: Lungs are clear anteriorly. Cardiovascular: Regular rate and rhythm. No rub, murmur or gallop noted. Abdomen: Large abdomen with large ventral hernia although it feels much more solid at least based on my exam compared to what has been described in notes. Extremities: Without cyanosis, although she has got a right AKA and a left AKA. Impression and Plan Abdominal distention and ventral hernia with bleeding. Will check serial H and H. Will check CT of the abdomen and pelvis and follow up further. Job ID/VF Job ID: [id number] * Lisa Pradhan MD - 06/16/2020 8:46 PM CDT History & Physical Date of service: 06/16/20 Primary care provider: Zeke Puente MD Chief Complaint: Leg pain HPI: 65-year-old female with a past medical history of dementia, osteomyelitis of bilat LE, DM, HTN, recovered covid 19 who presented to the ED with complaints of lethargy onset today. She was admitted in Nov 2019 at [facility]. She had a R heel ulcer w osteo, s/p RtAKA. Pt also had osteo on the LLE, however declined amputation and requested palliative care and eventually was discharged with hospice. The initial plan was to go home with PICC for abx but after deciding on hospice that plan was cancelled. Since that time, per the family the infection has improved and they decided to take the patient offhospice. Today the pt was noted to less responsive. At baseline she is only alert and oriented x1 PMHX: Hx of DM, last A1c 8.6 and currently on no treatment. Hx of hypothyroidism on synthroid. Lastlabs in record showing elevated TSH and low T4. Hx of covid 19 back in Nov and now recovered. No resp complaints. In the ED, dicussed with both sons and they now say that they would be interested in amputation. Past Medical History: Diagnosis Date ??? Dementia (CMS/HCC) ??? Diabetes mellitus (CMS/HCC) ??? Hypertension Past Surgical History: Procedure Laterality Date ??? HERNIA REPAIR (Not in a hospital admission) Allergies Allergen Reactions ? ? Codeine Phosphate Nausea & Vomiting Social History Tobacco Use ??? Smoking status: Never Smoker ??? Smokeless tobacco: Never Used Substance Use Topics ??? Alcohol use: No Family History Problem Relation Age of Onset ??? Diabetes Mother ??? Heart disease Father ??? No Known Problems Sister ??? Diabetes Brother ??? No Known Problems Daughter ??? No Known Problems Son ??? No Known Problems Son ??? No Known Problems Son Review of Systems Constitutional: Positive for fatigue. Negative for appetite change, chills, diaphoresis and fever. HENT: Negative for congestion, rhinorrhea, sinus pain and sore throat. Eyes: Negative for discharge and itching. Respiratory: Negative for apnea, cough, chest tightness and shortness of breath. Cardiovascular: Negative for chest pain, palpitations and leg swelling. Gastrointestinal: Negative for abdominal pain, constipation, diarrhea, nausea and vomiting. Endocrine: Negative for cold intolerance and heat intolerance. Genitourinary: Negative for dysuria, frequency and urgency. Musculoskeletal: Negative for arthralgias, back pain and myalgias. Skin: Positive for wound. Neurological: Positive for weakness. Negative for dizziness, syncope, light- headedness, numbness and headaches. Psychiatric/Behavioral: Negative for agitation and confusion. Objective: Vitals: 06/16/20 1945 06/16/20201406/16/[id number]/[id number]/202042 BP: 118/73 141/76 131/67 Pulse: 71 76 74 Resp: Temp: 37.3 ??C (99.1 ??F) TempSrc: Axillary SpO2: 100% 100% 100% 24hr Min/Max: Temp Min: 37.3 ??C (99.1 ??F) Max: 38.4 ??C (101.1 ??F) Pulse Min: 71 Max: 91 BP Min: 93/52 Max: 142/82 Resp Min: 14 Max: 14 SpO2 Min: 93 % Max: 100 % I/O last 2 completed shifts: In: 250 [IV Piggyback:250] Out: - No intake/output data recorded. Physical Exam Vitals and nursing note reviewed. Constitutional: General: She is not in acute distress. Appearance: Normal appearance. She is ill-appearing. HENT: Head: Normocephalic and atraumatic. Nose: Nose normal. No congestion. Mouth/Throat: Mouth: Mucous membranes are moist. Pharynx: Oropharynx is clear. Eyes: Extraocular Movements: Extraocular movements intact. Pupils: Pupils are equal, round, and reactive to light. Cardiovascular: Rate and Rhythm: Normal rate and regular rhythm. Pulses: Normal pulses. Heart sounds: Normal heart sounds. No murmur. Pulmonary: Effort: Pulmonary effort is normal. Breath sounds: Normal breath sounds. Abdominal: General: Bowel sounds are normal. Palpations: Abdomen is soft. Hernia: A hernia is present. Musculoskeletal: General: No swelling or tenderness. Normal range of motion. Cervical back: Normal range of motion and neck supple. Comments: Rt AKA Left : poor pulses, wound to the left heel, no surrounding erythema or drainage Skin: General: Skin is warm and dry. Neurological: General: No focal deficit present. Mental Status: She is alert. Psychiatric: Mood and Affect: Mood normal. Lab/Radiology/Diagnostic Review: Labs personally reviewed: Images reviewed: CT Head WO Contrast Final Result 1. No acute intracranial process identified. 2. Mild diffuse atrophy of the brain. 3. Benign basal ganglia calcifications symmetrically. 4. Atherosclerotic calcification of the carotid siphons and distal vertebral arteries. Electronically signed by: Kenny Fabian M.D. XR Foot Left 3 or More Views Final Result 1. Progressive erosion of the posterior calcaneus since 11/06/2019 with probable acute osteomyelitis of the posterosuperior calcaneus near the Achilles insertion with overlying soft tissue ulceration Electronically signed by: Navya Oliva M.D. XR Chest 1 Vw Portable Final Result 1. Enlarged cardiac silhouette shown in large part reflect the presence of a moderately large pericardial effusion on concurrently performed computed tomography. 2. The left lung base is not well penetrated/assessed on this radiograph. However, the CT study demonstrates only some minimal atelectasis at the left lung base and no left pleural fluid. The right lung is clear. Electronically signed by: Tomi Urena M.D. CT Abdomen Pelvis W Contrast Final Result 1. Rounded mass density in the right breast incompletely included. Clinical correlation recommended. 2. Large amount of pericardial fluid. Correlation with echocardiogram recommended. 3. Distended gallbladder. Clinical correlation recommended. 4. Fecal impaction. 5. Large fluid density mass in the anterior abdominal wall intimately associated with prior surgical site. Chronic and stable from prior study. 6. Patchy lucencies in the vertebral bodies as previously described and either unchanged or perhaps slightly more prominent or slightly increased. Recommended clinical and lab correlation and MRI thoracic and lumbar spine. 7. Additional details above. Electronically signed by: Aram Pederson M.D. Assessment/Plan Osteomyelitis of Left foot in the setting of severe PAD and type 2 DM Rt LE osteo s/p AKA in 11/30 - XR showing acute osteo. Continue IV abx. Will need podiatry consult. Also ordered ZAYNAB, may need vascular surgery - blood cx pending. Prior hx of proteus bacteremia during admission in nov 2019. Type 2 DM - will check A1c. Will start sliding scale. Will need to get better control of blood sugars to ensure better healing of infection Essential HTN - stable. Will hold BP meds at this time, can always restart if needed Acquired Hypothyroidism - check TSH/T4. Continue synthroid Dementia - A&Ox2 currently COVID 19 recovered Code status - in the ED, code status was discussed - DNR DNI. Pt previously on hospice but it appears that the family had a poor understanding of what that entailed. May need further discussion regarding GOC dueto pt;s co morbidities and poor quality of life Code status: LIMITED - No CPR ESTIMATED LENGTH OF STAY: Greater than 2 midnights Lisa Pradhan MD 06/16/2020 8:46 PM documented in this encounter Consult Notes * Florentin Dang MD - 06/22/2020 12:17 PM CDTAssociated Order(s): IP CONSULT TO GASTROENTEROLOGY GI Consult Note Referring Provider: Harlan Salamanca MD SUBJECTIVE: Patient is a 65 y.o. female with chief complaint of possible bloody vomitus. Reason for consult: GI bleed HPI: This is a patient whom I was called about last evening who had recurrent vomiting of dark brown material last evening while she was recovering from a left [id number] amputation performed on 2020. During a prior hospitalization she had previously requested hospice however this was the e ventually taken off prior to this hospital stay. Due to significant abdominal distension on exam in the patient underwent CT scanning which was quite remarkable showing extraluminal air, evidence of gastric ischemia and portal venous gas. There is also evidence of a fecal impaction. It was decided after the discussions with the surgery that the ortiz rgical intervention was not recommended. Also endoscopy had been initially planned but with the current the findings on CT this was canceled. Past Medical History: Diagnosis Date ??? Dementia (CMS/HCC) ??? Diabetes mellitus (CMS/HCC) ??? Hypertension Past Surgical History: Procedure Laterality Date ??? HERNIA REPAIR Medications Prior to Admission Medication Sig Dispense Refill Last Dose ??? amLODIPine (NORVASC) 10 mg tablet Take 10 mg by mouth daily Unknown at Unknown time ??? atorvastatin (LIPITOR) 40 mg tablet Take 40 mg by mouth daily Unknown at Unknown time ??? gabapentin (NEURONTIN) 300 mg capsule Take 300 mg by mouth 2 (two) times a day Unknown at Unknown time ??? hydroCHLOROthiazide (HYDRODIURIL) 12.5 mg tablet Take 12.5 mg by mouth daily Unknown at Unknowntime ??? 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 potassium chloride ER (potassium chloride ER) 10 mEq CR tablet Take 10 mEq by mouth 2 (two) times a day Unknown at Unknown time ??? traMADoL (ULTRAM) 50 mg tablet Take 50 mg by mouth every 6 (six) hours as needed for pain Unknown at Unknown time Allergies Allergen Reactions ? ? Codeine Phosphate Nausea & Vomiting Social History Tobacco Use ??? Smoking status: Never Smoker ??? Smokeless tobacco: Never Used Substance Use Topics ??? Alcohol use: No Family History Problem Relation Age of Onset ??? Diabetes Mother ??? Heart disease Father ??? No Known Problems Sister ??? Diabetes Brother ??? No Known Problems Daughter ??? No Known Problems Son ??? No Known Problems Son ??? No Known Problems Son Social History Socioeconomic History ??? Marital status: Single Spouse name: Not on file ??? Number of children: Not on file ??? Years of education: Not on file ??? Highest education level: Not on file Occupational History ??? Not on file Tobacco Use ??? Smoking status: Never Smoker ??? Smokeless tobacco: Never Used Substance and Sexual Activity ??? Alcohol use: No ??? Drug use: No ??? Sexual activity: Not on file Other Topics Concern ??? Not on file Social History Narrative ??? Not on file Social Determinants of Health Financial Resource Strain: Unknown ??? Difficulty of Paying Living Expenses: Patient refused Food Insecurity: ??? Worried About Running Out of Food in the Last Year: ??? Ran Out of Food in the Last Year: Transportation Needs: No Transportation Needs ??? Lack of Transportation (Medical): No ??? Lack of Transportation (Non-Medical): No Physical Activity: ??? Days of Exercise per Week: ??? Minutes of Exercise per Session: Stress: ??? Feeling of Stress : Social Connections: Unknown ??? Frequency of Communication with Friends and Family: Patient refused ??? Frequency of Social Gatherings with Friends and Family: Patient refused ??? Attends Yarsanism Services: Patient refused ??? Active Member of Clubs or Organizations: Patient refused ??? Attends Club or Organization Meetings: Patient refused ??? Marital Status: Patient refused Intimate Partner Violence: ??? Fear of Current or Ex-Partner: ??? Emotionally Abused: ??? Physically Abused: ??? Sexually Abused: Review of Systems Vitals: 24hr Min/Max: Temp Min: 36.7 ??C (98 ??F) Max: 37.4 ??C (99.4 ??F) Pulse Min: 73 Max: 87 BP Min: 67/57 Max: 154/83 Resp Min: 9 Max: 21 SpO2 Min: 88 % Max: 100 % Most Recent : Vitals: 06/22/20 0800 06/22/20 0900 06/22/20 1000 06/22/20 1100 BP: 121/70 (!) 132/104 (!) 67/57 128/57 BP Location: Right arm Right arm Right arm Right arm Patient Position: Lying Lying Pulse: 83 83 86 81 Resp: 13 12 11 13 Temp: 37.4 ??C (99.4 ??F) TempSrc: Temporal SpO2: 93% 100% 93% Weight: Height: OBJECTIVE: Physical Exam Lab/Radiology/Diagnostic Review: Recent Results (from the past 12 hour(s)) CBC with auto differential Collection Time: 06/22/20 3:52 AM Result Value Ref Range WBC 8.8 3.8 - 9.9 K/cumm Hgb 8.5 (L) 11.9 - 15.5 g/dL Hct 25.1 (L) 35.6 - 45.5 % Plt 195 150 - 400 K/cumm MPV 9.7 9.1 - 12.3 fL RBC 2.78 (L) 3.90 - 5.20 M/cumm MCV 90.3 81.3 - 96.4 fL MCH 30.6 27.1 - 33.3 pg MCHC 33.9 32.3 - 35.7 g/dL RDW CV 15.8 (H) 11.1 - 14.9 % RDW SD 51.8 (H) 35.7 - 48.1 fL NRBC abs 0.00 0.00 - 0.01 K/cumm Renal function panel Collection Time: 06/22/20 3:52 AM Result Value Ref Range Sodium 137 135 - 145 mmol/L Potassium, pl 3.7 3.3 - 4.9 mmol/L Chloride 97 97 - 110 mmol/L CO2 29 22 - 32 mmol/L Anion gap 11 2 - 15 mmol/L BUN 18 8 - 25 mg/dL Creatinine 0.65 0.60 - 1.10 mg/dL Glucose 102 70 - 199 mg/dL Calcium 8.8 8.5 - 10.3 mg/dL Phosphorus, pl 2.6 2.3 - 4.5 mg/dL Albumin 3.6 3.5 - 5.0 g/dL Differential, auto Collection Time: 06/22/20 3:52 AM Result Value Ref Range Neutrophil abs 6.3 1.7 - 6.5 K/cumm Imm gran abs 0.4 (H) 0.0 - 0.1 K/cumm Lymphocyte abs 1.5 0.8 - 3.3 K/cumm Monocyte abs 0.4 0.2 - 0.8 K/cumm Eosinophil abs 0.1 0.0 - 0.5 K/cumm Basophil abs 0.0 0.0 - 0.1 K/cumm Neutrophil pct 71.7 % Imm gran pct 4.8 % Lymphocyte pct 17.0 % Monocyte pct 4.6 % Eosinophil pct 1.4 % Basophil pct 0.5 % eGFR Collection Time: 06/22/20 3:52 AM Result Value Ref Range GFR 93 mL/min/1.73 m2 POCT glucose Collection Time: 06/22/20 9:07 AM Result Value Ref Range Glucose, POC 79 70 - 140 mg/dL CT Abdomen Pelvis W Contrast Result Date: 06/22/[address] findings as discussed which are highly consistent with interval development of gastric ischemia at the fundus/cardia with portal venous gas and trace amounts of extraluminal air along the greater curvature of the stomach. 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 Critical findings co mmunicated by [facility] to Dr. Ascencio at 2157 hours. 2. Large amount of stool throughout the colon with a large stool ball at the rectum consistent with constipation/fecal impaction. 3. Large pericardial effusion again noted. 4. Cholelithiasis. 5. Bladder wall thickening which could reflect a combination of incomplete distention and cystitis as discussed. A Kaplan catheter is in place. 6. Status post ventral herniorrhaphy. An apparent adjacent seroma is again seen with an anterior abdominal/pelvic subcutaneous fat. 7. Extensive body wall edema. The initial interpretation of this study was provided by a ad Radiologist. There is no significant discrepancy. Electronically signed by: Tomi Urena M.D. ASSESSMENT/PLAN: Principal Problem: Ischemic bowel Active Problems: Moderate malnutrition (CMS/HCC) PVD (peripheral vascular disease) (CMS/HCC) Anemia Hypothyroidism Hyperlipidemia Dementia (CMS/HCC) Diabetes mellitus (CMS/HCC) Hypertension 1. Due to the overall poor condition of this patient including evidence of the gastric ischemia celiac stenosis and bilateral AKA with the recent left AKA, elected not to proceed with any surgery at this time. I would not recommend endoscopy due to the findings of extra luminal air on CT scanning. There is likely a spontaneous gastrointestinal perforation related to ischemia and prognosis is poor. Endoscopy is not recommended. * Arley Peña MD - 06/19/2020 6:08 PM CDT Dictated. * Arley Peña MD - 06/19/2020 8:30 AM CDT Pt seen chart reviewed.Plan A.K. Amputation left today after I speak to the family. Detailed note to follow. * Arley Peña MD - 06/19/2020 12:00 AM CDT This 65-year-old black female who has a history of in the past I had done a right-sided [id number] amputation for bacteremia from osteomyelitis of the right heel about October or November of last year. At that time, there was an osteomyelitis of the left heel. Second amputation was recommended. However, patient's family wanted to go over into hospice and so she was discharged from [facility] after the amputation. I was called yesterday by the hospitalist that she is back with osteomyelitis left heel. The familyis interested in having me look at her. On sharp questioning, patient does not give a good history, but according the family, she continuesto have persistent pain in her left heel which requires pain medication at home. Nothing much has changed except that she was admitted for change in her mental status. She is diabetic. As indicated, she has had osteomyelitis in the left side. She has history of COVID in November of last year from which she has recovered practically completely. Medical History Also says she has dementia, diabetes mellitus, hypertension. Surgical History Of course is hernia repair, with amputation on the right side last year. She never smoked. There is a history of known heart disease in father and diabetes in mother. Diabetes in brother. Review of Systems Negative except for the fact that she complains of pain in the left foot, especially as per her daughter. She says she has pain in her toes as well. Medication List Currently includes Tylenol, oxycodone, Maxipime, vancomycin IV, Lovenox, insulin Lantus, insulin Humalog and lispro on a sliding scale, amlodipine, Xylocaine patch, gabapentin, Neurontin, glucagon p.r.n., dextrose 40% gel p.r.n. and 10% bolus as necessary, lactated Ringer's infusion, sodium chloride flush as necessary, Dramamine tablet, Zofran, MiraLAX, Synthroid tablet for her hypothyroidism. She is on a regular diet although she is NPO right now. She also gets nutritional supplement 3 times a day of the [employer]. Examination She is a well-built, nourished, black female. Her BMI is 30. Alert, cooperative and conscious. She is somewhat oriented, but sometimes it is difficult to understand what she is saying. Not seems to be in acute pain at this point. Her vital signs show temperature is 98, pulse 66, respiration 13, blood pressure 133/82, oxygen saturation 94%. No cervical lymphadenopathy. No cervical bruit. No thyromegaly. Auscultation of heart reveals heart rate to be 92 per minute, regular. No murmur. No gallops.No chest wall deformity. No chest wall tenderness. No respiratory distress. Lungs are clear to auscultation. No foreign sounds. Examination of the abdomen shows ventral hernia that is partially reduci ble, but no evidence of incarceration. No distention. No aortic bruit, no iliac bruit. Right side above the knee amputation is healed very well. The right femoral pulse is poor, 1+. Left femoral pulse is 1+. I do not feel any pulses in the left lower extremity. She has a scab on her left heel with no evidence of discharge, but it is a very thin left heel. It is relatively cool. Clinical Impression Ischemic level of peripheral vascular disease in both lower extremities. Of course, status post [id number]-[id number] amputation on the right. The ZAYNAB done a couple of days ago shows that has noncompressible vessel at the level of the left ankle, difficult to assess the degree of ischemia. It suggests lateral perfusion in marginal range. She had a CT angio done at which time left popliteal artery showed severe stenosis, densely calcified occlusion in the mid calf, but reconstituted at the ankle. The peroneal artery was 30, dorsalis pedis artery no significant stenosis. The plantar artery was normal and the area of near occlusion distal SFA on the left side. She had duplex done in July of 2018, at which time it showed bilateral superficial artery and infrapopliteal occlusive disease. [id number] distal ischemia. Discussion I have told the daughter that she can have hmdyd-yjt-aayy amputation, although osteomyelitis there would not be active. I said the ulcer is healed, but the indication to do surgery on her is to relieve her pain because she may have ischemic rest pain. Also she has history of bacteremia for osteomyelitis in the past and this will be done to prevent. I have explained to her the risks. She thought for a few hours and she called the office back and says that she is ready to have the amputation done. Her COVID test is negative today. Her GFR is 94. Her basic metabolic profile is practically normalwith no abnormal values. Her hemoglobin A1c is slightly high at 8 which needs to be controlled. HerTSH was 19.29, which is probably going to be addressed by increasing her doses of levothyroxine. We will proceed with lvhvl-[id number] amputation on the left. Thank you. Job ID/VF Job ID: [id number] * Arley Peña MD - 06/18/2020 10:13 PM CDT Discussed case with . Npo for now but see her tomorrow and may schedule her for amputation tomorrow. * Tomi Arguelles, DPM - 06/17/2020 3:06 PM CDTAssociated Order(s): IP CONSULT TO PODIATRY Initial Podiaty Consult Note Date of Consult: 06/17/2020 Patient's Primary Care Physician: Zeke Puente MD Physician Requesting Consult: Dr. Anguiano Reason for Consultation: Left heel wound/decubitus Name: Iris Gil Age: 65 y.o. Sex: female Chief Complaint/History of Present Illness Patient seen today at bedside for care of left heel decubitus and concern for osteomyelitis with x-rays showing some osteomyelitis changes to the posterior calcaneus. She is not communicative during my visit today. She has history of osteomyelitis/PAD/decubitus bilateral heels and had AKA last yearon the right but declined left leg amputation. Past Medical History: Diagnosis Date ??? Dementia (CMS/HCC) ??? Diabetes mellitus (CMS/HCC) ??? Hypertension Past Surgical History: Procedure Laterality Date ??? HERNIA REPAIR Medications Prior to Admission Medication Sig Dispense Refill Last Dose ??? amLODIPine (NORVASC) 10 mg tablet Take 10 mg by mouth daily Unknown at Unknown time ??? atorvastatin (LIPITOR) 40 mg tablet Take 40 mg by mouth daily Unknown at Unknown time ??? gabapentin (NEURONTIN) 300 mg capsule Take 300 mg by mouth 2 (two) times a day Unknown at Unknown time ??? hydroCHLOROthiazide (HYDRODIURIL) 12.5 mg tablet Take 12.5 mg by mouth daily Unknown at Unknowntime ??? 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 potassium chloride ER (potassium chloride ER) 10 mEq CR tablet Take 10 mEq by mouth 2 (two) times a day Unknown at Unknown time ??? traMADoL (ULTRAM) 50 mg tablet Take 50 mg by mouth every 6 (six) hours as needed for pain Unknown at Unknown time Allergies Allergen Reactions ? ? Codeine Phosphate Nausea & Vomiting Social History Tobacco Use ??? Smoking status: Never Smoker ??? Smokeless tobacco: Never Used Substance Use Topics ??? Alcohol use: No Family History Problem Relation Age of Onset ??? Diabetes Mother ??? Heart disease Father ??? No Known Problems Sister ??? Diabetes Brother ??? No Known Problems Daughter ??? No Known Problems Son ??? No Known Problems Son ??? No Known Problems Son Review of Systems A comprehensive review of systems was negative except as described in HPI. Exam Vitals: 06/17/20 0434 06/17/20 0845 06/17/20 0850 06/17/20 1216 BP: 139/80 138/71 156/71 BP Location: Right arm Right arm Right arm Patient Position: Lying Lying Pulse: 73 74 78 Resp: 18 18 19 Temp: 36.3 ??C (97.4 ??F) 36.6 ??C (97.9 ??F) 36.4 ??C (97.5 ??F) TempSrc: Oral Oral Axillary SpO2: 98% 100% 97% 97% Weight: Vascular Exam: Pedal pulses are non-palpable left foot with absent digital hair and increased distal cooling. No erythema, edema, induration or cellulitis. Orthopedic Exam: Left heel with soft tissue defect/atrophy posteriorly but apparently intact Achilles by palpation, even with ankle dorsiflexed. No gapping. Right leg s/p AKA. Neurologic Exam: Unable to assess. Patient is not communicating verbally or executing commands. Dermatologic Exam: Left heel with posterior decubitus presently appearing healed with mild scarring/hyperkeratosis butno open wound or underlying fluctuant tissue. No cellulitis noted. Toenails 1-5 left are severely long, thickened and mycotic. Data Recent Results (from the past 24 hour(s)) POCT glucose Collection Time: 06/16/20 4:39 PM Result Value Ref Range Glucose, POC 228 (H) 70 - 140 mg/dL Respiratory pathogen panel Nasopharyngeal Collection Time: 06/16/20 5:33 PM Specimen: Nasopharyngeal Result Value Ref Range Influenza A RNA Not Detected Not Detected Influenza B RNA Not Detected Not Detected RSV RNA Not Detected Not Detected COVID-19 RNA Not Detected Not Detected Coronavirus 229E RNA Not Detected Not Detected Coronavirus HKU1 RNA Not Detected Not Detected Coronavirus NL63 RNA Not Detected Not Detected Coronavirus OC43 RNA Not Detected Not Detected Adenovirus DNA Not Detected Not Detected Metapneumovirus RNA Not Detected Not Detected Rhinovirus/Enterovirus RNA Not Detected Not Detected Parainfluenza 1 RNA Not Detected Not Detected Parainfluenza 2 RNA Not Detected Not Detected Parainfluenza 3 RNA Not Detected Not Detected Parainfluenza 4 RNA Not Detected Not Detected B. pertussis DNA Not Detected Not Detected B. parapertussis DNA Not Detected Not Detected C. pneumoniae DNA Not Detected Not Detected M. pneumoniae DNA Not Detected Not Detected Employeed in healthcare? No status? No Group care resident? No Hospitalized? No Is patient in ICU? No Symptomatic as defined by CDC? Unknown POCT glucose Collection Time: 06/16/20 8:41 PM Result Value Ref Range Glucose, POC 213 (H) 70 - 140 mg/dL POCT glucose Collection Time: 06/16/20 10:32 PM Result Value Ref Range Glucose, POC 185 (H) 70 - 140 mg/dL Comprehensive metabolic panel Collection Time: 06/17/20 6:37 AM Result Value Ref Range Sodium 136 135 - 145 mmol/L Potassium, pl 3.1 (L) 3.3 - 4.9 mmol/L Chloride 95 (L) 97 - 110 mmol/L CO2 32 22 - 32 mmol/L Anion gap 9 2 - 15 mmol/L BUN 18 8 - 25 mg/dL Creatinine 0.89 0.60 - 1.10 mg/dL Glucose 170 70 - 199 mg/dL Calcium 8.6 8.5 - 10.3 mg/dL Bilirubin, total 0.6 0.1 - 1.2 mg/dL Protein, pl 7.0 6.5 - 8.5 g/dL Albumin 3.5 3.5 - 5.0 g/dL Alk phos 27 (L) 40 - 130 Units/L ALT 25 7 - 45 Units/L AST 33 10 - 45 Units/L Magnesium Collection Time: 06/17/20 6:37 AM Result Value Ref Range Magnesium 1.8 1.4 - 2.5 mg/dL Phosphorus Collection Time: 06/17/20 6:37 AM Result Value Ref Range Phosphorus, pl 3.5 2.3 - 4.5 mg/dL CBC with auto differential Collection Time: 06/17/20 6:37 AM Result Value Ref Range WBC 6.4 3.8 - 9.9 K/cumm Hgb 9.8 (L) 11.9 - 15.5 g/dL Hct 29.9 (L) 35.6 - 45.5 % Plt 209 150 - 400 K/cumm MPV 9.8 9.1 - 12.3 fL RBC 3.09 (L) 3.90 - 5.20 M/cumm MCV 96.8 (H) 81.3 - 96.4 fL MCH 31.7 27.1 - 33.3 pg MCHC 32.8 32.3 - 35.7 g/dL RDW CV 15.0 (H) 11.1 - 14.9 % RDW SD 53.1 (H) 35.7 - 48.1 fL NRBC abs 0.00 0.00 - 0.01 K/cumm Protime-INR Collection Time: 06/17/20 6:37 AM Result Value Ref Range PT 14.1 (H) 9.5 - 13.6 sec INR 1.3 (H) 0.9 - 1.2 aPTT Collection Time: 06/17/20 6:37 AM Result Value Ref Range aPTT 32 27 - 37 sec Differential, auto Collection Time: 06/17/20 6:37 AM Result Value Ref Range Neutrophil abs 5.3 1.7 - 6.5 K/cumm Imm gran abs 0.0 0.0 - 0.1 K/cumm Lymphocyte abs 0.6 (L) 0.8 - 3.3 K/cumm Monocyte abs 0.4 0.2 - 0.8 K/cumm Eosinophil abs 0.0 0.0 - 0.5 K/cumm Basophil abs 0.0 0.0 - 0.1 K/cumm Neutrophil pct 83.2 % Imm gran pct 0.5 % Lymphocyte pct 10.1 % Monocyte pct 5.7 % Eosinophil pct 0.0 % Basophil pct 0.5 % eGFR Collection Time: 06/17/20 6:37 AM Result Value Ref Range GFR 68 mL/min/1.73 m2 POCT glucose Collection Time: 06/17/20 6:45 AM Result Value Ref Range Glucose, POC 185 (H) 70 - 140 mg/dL POCT glucose Collection Time: 06/17/20 11:57 AM Result Value Ref Range Glucose, POC 150 (H) 70 - 140 mg/dL X-rays: Left foot x-rays reviewed, chronic appearing remodeling of the posterior calcaneus with some chronic loss of posterior bone mass/curvature but no acute fracture or bony destruction appreciated. Assessment Left heel decubitus with chronic osteomyelitis, diabetes, PAD. Wound appears healed and osteomyelitis does not appear active; Onychomycosis Plan I have seen and evaluated the patient today but the left heel appears stable at this time with no open wound or clinical signs of active infection. Recommend continued offloading with heel protector,noted to be in place today. She may have ischemic pain in left leg. Recommend vascular testing/consultation in this regard. No plan for surgical debridement/intervention from my standpoint at this time. If possible, I will return for nail debridement this admission. Thank you for consulting me on this pleasant patient. Tomi Arguelles D.P.M., FACFAS documented in this encounter Nursing Notes * Jennifer Todd RN - 06/26/2020 4:07 PM CDT Attempted to call [facility] 5 times to give report on pt, was told the nurse would call me back, but nurse did not call back. [facility] came to pick pulling machine tender pt at 1545 and pt wastransported to facility. 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 Understanding verbalized. Holly Bryant 06/16/202055 * Preeti Barr MD - 06/16/2020 7:09 PM CDT HPI Chief Complaint Patient presents with ??? Leg Pain 65yo F with PMHx sig for dementia, HTN, DMII, HLD, osteomyelitis presenting with concern for osteomyelitis. Per EMS, patient was less responsive today, concern for osteomyelitis and that the patient would need her leg amputated. EMS states that patient was on hospice for osteomyelitis, but then theinfection got better and the patient was taken off hospice. Family called to get the patient admitted to have the leg amputated. EMS noted that the patient received an additional gabapentin, tramadoltoday. Patient lives at home with daughter, unable to contact daughter. Contacted son, who notes that typically the patient is alert, talks. Is only oriented to herself at baseline. Notes that the patient was on hospice, but that they did not realize what hospice entailed when they were on hospice. The patient was then removed from hospice. The son is not aware of the patient receiving additional medications today, not sure if the patient has had cough, fevers, chills, vomiting. Patient History: Patient Active Problem List Diagnosis Date Noted ??? Sepsis (CMS/HCC) 11/20/2019 ??? Acute hematogenous osteomyelitis of right foot (CMS/HCC) 11/20/2019 ??? PVD (peripheral vascular disease) (CMS/HCC) 11/20/2019 ??? Anemia 11/20/2019 ??? COVID-19 11/20/2019 ??? Hypothyroidism 11/20/2019 ??? Hyperlipidemia 11/20/2019 ??? Pressure injury of sacral region, stage 4 (CMS/HCC) 11/20/2019 ??? Moderate malnutrition (CMS/HCC) 11/07/2019 ??? Malignant neoplasm of upper-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, estrogen receptor negative (CMS/HCC) 11/13/2017 Past Medical History: Diagnosis Date ??? Dementia (CMS/HCC) ??? Diabetes mellitus (CMS/HCC) ??? Hypertension Past Surgical History: Procedure Laterality Date ??? HERNIA REPAIR Family History Problem Relation Age of Onset ??? Diabetes Mother ??? Heart disease Father ??? No Known Problems Sister ??? Diabetes Brother ??? No Known Problems Daughter ??? No Known Problems Son ??? No Known Problems Son ??? No Known Problems Son Social History Tobacco Use ??? Smoking status: Never Smoker ??? Smokeless tobacco: Never Used Substance Use Topics ??? Alcohol use: No ??? Drug use: No Social History Social History Narrative ??? Not on file Review of Systems Review of Systems Unable to perform ROS: Dementia Physical Exam ED Triage Vitals [06/16/20 1238] Temp Pulse Resp BP SpO2 38.3 ??C (101 ??F) 91 14 137/76 93 % Temp src Heart Rate Source Patient Position BP Location FiO2 (%) Axillary -- -- -- -- Physical Exam Vitals and nursing note reviewed. Constitutional: Appearance: She is well-developed. Comments: Appears chronically ill. Lethargic. Withdrawing to painful stimuli. Opening eyes briefly to verbal stimulation. HENT: Head: Normocephalic and atraumatic. Eyes: Conjunctiva/sclera: Conjunctivae normal. Cardiovascular: Rate and Rhythm: Normal rate and regular rhythm. Heart sounds: Normal heart sounds. No murmur. Pulmonary: Effort: Pulmonary effort is normal. No respiratory distress. Breath sounds: Normal breath sounds. Abdominal: General: There is distension. Tenderness: There is no abdominal tenderness. Comments: Firm mass on anterior abdomen. Musculoskeletal: Cervical back: Neck supple. Comments: Right AKA. Skin: General: Skin is warm and dry. Comments: Eschar on heal of left foot without surrounding erythema, induration Neurological: Mental Status: She is oriented to person, place, and time. MDM Medical Decision Making Differential Diagnosis or Management Options: High concern for incarcerated hernia, high concern for osteomyelitis, moderate concern for UTI, bacteremia, low concern for pneumonia. PLAN: 1) CBC, BMP, trop, lactate, UA, ESR, CRP 2) Xray left foot 3) CT head, Abd/pelvis 4) vanc/Cefepime 5) NS bolus 6) clarify code status 7) anticipate admission. ED Course as of Jun 17 1915 Time: 06/16 180 Comment: Discussed with both sons. Both sons agree that the patient is currently off hospice, is interested in an amputation for infection control. Patient would not be interested in intubation or CPR if got so sick that she would need intubation or CPR. Patient now much more alert, awake, still not answering questions appropriately. By: Preeti Barr MD Final diagnoses: Other acute osteomyelitis of left foot ([facility]) Encephalopathy acute Hyperlipidemia, unspecified hyperlipidemia type Hypertension, unspecified type Type 2 diabetes mellitus with other specified complication, unspecified whether superintendent terminal insulin use ([facility]) Preeti Barr MD 06/16/20 1916 * Marti Jiménez RN - 06/16/2020 12:31 PM CDT Pt arrived via EMS from home for left leg pain. Per EMS information obtained from pt daughter. Pt has right AKA, was recommended to have left leg amputation due to infection. Per EMS leg infection has cleared, pt was on hospice. Unknown if pt is currently on hospice. 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 Temp 101f. Pt a/ox1. * Mally Finley RN - 06/16/2020 12:29 PM CDT Bed: Expected date: Expected time: Means of arrival: Comments: EMS leg pain Mally Finley, SPENCER 06/16/20 1229 documented in this encounter Miscellaneous Notes * ED Procedure Note - Preeti Barr MD - 06/26/2020 4:07 PM CDT Associated Order(s): Critical Care Procedure Critical Care Performed by: Preeti Barr MD Authorized by: Preeti Barr MD Critical care provider statement: As reflected in the history, physical exam, orders, notes, and/or MDM, I was personally present while the patient was critically ill and provided critical care services for approximately 45 minutes, excluding time involved in separately billable procedures. Critical care was necessary to treat or prevent imminent or life-threatening deterioration of the following condition(s): acute delirium and severe neurologic condition sepsis and skin/soft tissue infection Critical care was time spent by me providing the following: continuous telemetry, continuous pulse oximetry, continuous capnography, interpretation of bedside monitors, imaging, and arterial/venous lab draws, serial bedside patient exams and resuscitation with fluids review prior cultures/records, obtain appropriate cultures and empiric broad coverage antibiotics I provided emergent necessary critical care medicine services to this patient. I ordered and reviewed test results and/or imaging studies. I spent time discussing the management of this critically ill patient with consultants and the medical staff. I spent time discussing the management and therapeutic options for this critically ill patient with the patient themselves or with the appropriate designated surrogate decision-maker. I spent time documenting in the medical record. Preeti Barr MD 06/27/20 2335 * Plan of Care - Jennifer Todd RN - 06/26/2020 3:08 PM CDT Goals: Clinical Goals for the Shift: VSS, pain control, monitor surgical site, work with therapy, safety, comfort Summary: VSS, pt will be discharged via ambulance to [facility], up in chair for breakfast and lunch, tolerated meals, pain controlled with tylenol. Problem: Activity: Goal: Mobility will improve Outcome: Adequate for Discharge Problem: Lack of Knowledge: Goal: Understanding of ways to prevent future skin breakdown will improve Outcome: Adequate for Discharge Goal: Ability to identify appropriate dietary choices will improve Outcome: Adequate for Discharge Problem: Nutritional: Goal: Dietary intake will improve Outcome: Adequate for Discharge Goal: Ability to maintain a balanced intake and output will improve Outcome: Adequate for Discharge Problem: Skin Integrity: Goal: Risk for impaired skin integrity will decrease Outcome: Adequate for Discharge Goal: Ability to demonstrate warm and dry skin will improve Outcome: Adequate for Discharge Goal: Circulation will improve to fullest extent possible Outcome: Adequate for Discharge Problem: Health Behavior: Goal: Understanding of discharge needs will improve Outcome: Adequate for Discharge * Plan of Care - Preeti Martinez LCSW - 06/26/2020 2:09 PM CDT The patient has been accepted to [facility] in [place], [place].The patient's daughter,Ailyn Turner is agreeable with the discharge plan.Preliminary discharge medication list was faxed.The patient will transport via [facility] this afternoon at 3 pm.Dispo code-skilled care/nursing facility/medicare bed. * Plan of Care - Preeti Martinez LCSW - 06/26/2020 11:52 AM CDT The patient's daughter reports that she has no preference for SNF.Additional SNF referrals sent. * Plan of Care - Yaquelin Telles RN - 06/25/2020 6:41 PM CDT Problem: Activity: Goal: Mobility will improve Outcome: Progressing Problem: Lack of Knowledge: Goal: Understanding of ways to prevent future skin breakdown will improve Outcome: Progressing Goal: Ability to identify appropriate dietary choices will improve Outcome: Progressing Problem: Nutritional: Goal: Dietary intake will improve Outcome: Progressing Goal: Ability to maintain a balanced intake and output will improve Outcome: Progressing Problem: Skin Integrity: Goal: Risk for impaired skin integrity will decrease Outcome: Progressing Goal: Ability to demonstrate warm and dry skin will improve Outcome: Progressing Goal: Circulation will improve to fullest extent possible Outcome: Progressing Problem: Health Behavior: Goal: Understanding of discharge needs will improve Outcome: Progressing Goals: Clinical Goals for the Shift: VSS, pain control, monitor surgical site, work with therapy, safety, comfort Summary: VSS, pain under control with PRN medications, surgical site dry and intact, up to chair with therapy, remained free from falls, bed/chair alarm on at all times, now resting comfortably in bed with call light in reach. * Plan of Care - Preeti Martinez LCSW - 06/25/2020 3:35 PM CDT SNF listing emailed to the patient's daughter. * Plan of Care - Preeti Martinez LCSW - 06/25/2020 3:03 PM CDT I spoke with the patient's daughterAilyn this afternoon regarding discharge planning.I updated the patient's daughter that SNF was recommended by the therapy team.The daughter reports that the patient would be interested in a facility for therapy at discharge.SNF referrals sent to some [facility] preferred providers.Additionally,I will email the patient's daughter a listing of SNFs. * ECIN Note - Preeti Martinez LCSW - 06/25/2020 2:59 PM CDT Patient Information: WOOD MOLDER Eval and Treat Last Documented WOOD MOLDER ASSESSMENT (most recent) WOOD MOLDER Evaluation - 06/25/20 1054 General Session Type Treatment Precautions Precautions Bed/Chair Alarm;Fall risk;Safety Cognition Orientation Oriented X4 (person, place, time, situation) Pain Assessment Pain Assessment 0-10 Pain Score 8 Patient's Stated Pain Goal No pain Pain Type Surgical pain Pain Location Leg Pain Orientation Left WOOD MOLDER SWALLOW STUDY (most recent) Clinical Swallow Study No documentation. WOOD MOLDER TREATMENT (most recent) WOOD MOLDER Treatment - 06/25/20 1054 General Session Type Treatment Precautions Precautions Bed/Chair Alarm;Fall risk;Safety Pain Assessment Pain Assessment 0-10 Pain Score 8 Patient's Stated Pain Goal No pain Pain Type Surgical pain Pain Location Leg Pain Orientation Left WOOD MOLDER Notes (Notes from 06/23/20 through 06/25/20) No notes of this type exist for this encounter. * ECIN Note - Preeti Martinez LCSW - 06/25/2020 2:58 PM CDT Patient Information: PT Eval and Treat Last 72 Hours PT Evaluation Row Name 06/24/20 1308 06/24/20 0920 06/23/20 0900 06/22/20 2300 Chart Reviewed Yes -BB -- Yes -EW -- Session Type Evaluation -BB Evaluation -BB Evaluation -EW -- Safe Environment Arm Band Checked;Bed Alarm placed and activated;Chair Alarm placed and activated;Call Light within Reach;Notified RN;Session Completed Bedside;Patient found in Supine;Overbed Table within Reach;Bed in Lowest Position with Wheels locked;Bed rails up per protocol -MW (r) BB (t) -- ---- Subjective Agreeable to Therapy -BB -- Other -EW -- Subjective Comment Pt reports 5/10 pain in left LE at beginning, during, and at end of PT session. RN notified and pt was given pain meds at beginning of session. PT and OT performed co-evaluation tomaximize safety with functional mobility. -BB -- (S) Patient pleasant and initially agreeable to working with PT. However, when PT attempted adjusting bed to initiate mobility, patient yells out in pain. Patient reports residual limb (L) becomes too painful when attempting mobility at this time. Will attempt to see patient again as available. She will likely require co-treat with PT/OT once able to fully participate. Patient will require use of repositioning sling or orange slider to arevalo chair when transferring out of bed. -EW -- PT Missed Visit Reason -- With other staff/receiving another service;Unavailable PT w/ music therapist; PT will try back later as time allows -BB -- -- Additional Pertinent History Pt is a 65yo F with PMHx sig for dementia, HTN, DMII, HLD, osteomyelitis, R AKA, ventral hernia. Pt admitted 06/16 via EMS with concern for osteomyelitis. Of note pt was onhospice for osteomyelitis, but then the infection improved and the patient was taken off hospice. Pt is now s/p L AKA 06/19. Developed hematemesis, possible gastric ischemia with spontaneous GI perf and fecal impaction. Deemed not a surgical candidate. EGD on 06/22 was cancelled. -BB -- -- -- Family/Caregiver Present No -BB -- No -EW -- Precautions Bed/Chair Alarm;Fall risk;Safety -BB -- Fall risk -EW -- Type of Home Apartment - (r) BB (t) -- -- -- Home Layout One level -CEED Tech (r) LAUREN (t) -- -- -- Home Access Other (Comment) pt states some stairs to enter; unsure of how many or rails - (r) LAUREN (t) -- -- -- Bathroom Accessibility Not accessible pt states can't get into bathroom in her chair at home -CEED Tech (r) LAUREN (t) -- -- -- Home Mobility Equipment -- pt had amisha + hospice chair - both taken back by hospice -CEED Tech (r) BB (t)-- -- -- Home ADL Equipment Other (Comment) unsure -CEED Tech (r) BB (t) -- -- -- Additional Comments Pt reports she transferred via amisha lift to a chair at home that hospice provided which didn't have wheels. Pt has no DME, no WC even, and pt states she can't get into the bathroom so hospice was bathing her 2x/week and pt toilets in diapers which her daughter Lindy then changes for her. Pt is not a completely reliable historian. Pt states she is supposed to be getting a WC f rom a family friend. 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 -DAVID (r) LAUREN (t) -- -- -- Driving No -CEED Tech (r) LAUREN (t) -- -- -- ADL Assistance Needs assistance -MW (r) BB (t) -- -- -- Bathing Total -MW (r) BB (t) -- -- -- Dressing Maximal -MW (r) BB (t) -- -- -- Grooming Maximal -MW (r) BB (t) -- -- -- Toileting Total -MW (r) BB (t) -- -- -- Feeding Stand by -MW (r) BB (t) -- -- -- Instrumental ADL (IADL) Assistance Needs assistance -MW (r) BB (t) -- -- -- Meal Prep Total -BB -- -- -- Laundry Total -BB -- -- -- Cleaning Total -BB -- -- -- Shopping Total -BB -- -- -- Superintendent Recreation Total -BB -- -- -- Medical Management Total -BB -- -- -- Vocational/Occupation Retired -BB -- -- -- 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 Hospice staff completed bathing 2x/week. workers compensation legal secretary 4 hours day Monday-Monday that completed cleaning and brought TV dinners. Reports daughter assists with dressing. Daughter works during the day. Pt was non- ambulatory and used amisha lift for transfers after the right AKA in Nov 2019. Pt has assist with all ADLs and total assist w/ all IADLs. -BB -- -- -- Endurance Tolerates 30 min activity with multiple rests -BB -- -- -- Activity Tolerance Comments BP 130/69, HR 83, O2 97% on room air. Pt left seated in arevalo chair with all needs met and chair alarm checked and engaged at end of session. Pt educated on using call light. RN notified that pt up in chair and to use Prism amisha w/ repositioning sling to safely transfer back to bed when needed. Welder Fitter Apprentice was also contacted and will be available to assist nursing as able with transfers and can further guide staff nuclear weapons officer with pt safety. - BB -- -- Pre-session: HR=80, O2=96%, BQ=445/79 -EW Pain Assessment 0-10 -BB -- 0-10 -EW -- Pain Score 5 - Moderate pain -BB -- 9 0 at rest, 9/10 L residual limb when moving -EW -- Patient's Stated Pain Goal No pain -BB -- -- -- Pain Type Surgical pain -BB -- -- -- Pain Location Leg -BB -- -- -- Pain Orientation Left -BB -- -- -- Pain Descriptors Aching;Sharp;Shooting;Sore;Throbbing;Tender -BB -- -- -- Pain Frequency Constant/continuous -BB -- -- -- Pain Onset Ongoing -BB -- -- -- Clinical Progression Not changed -BB -- -- -- Pain Interventions Medication (See MAR);Repositioned;RN Notified;Rest -BB -- -- -- Overall Cognitive Status Impaired -BB -- -- -- Orientation Oriented X4 (person, place, time, situation) -BB -- Oriented X4 (person, place, time, situation) -EW -- Compliance/Behavior Easy to engage -BB -- -- -- Endurance Deficit Yes -BB -- -- -- Balance Yes -BB -- -- -- Static Sitting-Balance Support Bilateral upper extremity supported;Feet unsupported -BB -- -- -- Static Sitting-Sitting Surface Bed -BB -- -- -- Static Sitting-Level of Assistance Moderate assistance;Maximum assistance -BB -- -- -- Static Sitting-Comment/# of Minutes Pt sat EOB x10 minutes w/ BRENDON UE support, mod-max assist from OT for posterior trunk support, and minimum assist from PT for anterior support and safety at surfaceedge. -BB -- -- -- Bed Mobility Yes -BB -- -- -- Bed Mobility Comments 1 pt rolls BRENDON with max assist of 1-2 with BRENDON bedrails, supine<-->sit EOB with max assist x2 + bedrail, pt sits EOB x10 minutes with mod-max assist x1 + minimum assist of2nd person w/ BRENDON UE support and mattress deflated for safety/stability -BB -- -- -- Transfer Yes -BB -- -- -- Trials/Comments 1 pt transfers bed-->Arevalo chair with total assist via repositioning sling using portable Prism amisha lift device, pt positioned as upright in Arevalo chair as she could tolerate w/ the pain and then tilted pt back approx 10 degrees to improve safety due to decreased trunk control (chair alarm placed and activated w/ call light + all needs in reach and pt educated to call RN for all needs first) -BB -- -- -- Ambulation No -BB -- -- -- Ambulation Comments 1 not applicable - pt is BRENDON AKA -BB -- -- -- Stairs No -BB -- -- -- Stair Comments not applicable -BB -- -- -- RLE Assessment X -BB -- -- -- R Hip Flexion 2-/5 -BB -- -- -- R Hip ABduction 1/5 -BB -- -- -- R Hip ADduction 2-/5 -BB -- -- -- LLE Assessment X not formally assessed due to pain; observed w/ mobility -BB -- -- -- L Hip Flexion 2-/5 -BB -- -- -- L Hip ABduction /5 -BB -- -- -- L Hip ADduction 2-/5 -BB -- -- -- Other PT Comments Upon evaluation, pt demonstrates increased pain and edema in left LE, impaired cognition, impaired bed mobility, impaired sitting balance, greatly impaired transfers, inability to stand or ambulate due to BRENDON AKA status, and decreased activity tolerance and endurance. Pt would benefit from continued PT services to address deficits, improve functional mobility, aid in return to PLOF, and prepare her for a safe discharge when medically appropriate. -BB -- -- -- Prognosis Fair -BB -- -- -- Problem List Decreased strength;Decreased range of motion;Decreased endurance;Impaired balance;Decreased mobility;Decreased cognition;Decreased safety awareness;Obesity;Pain;Postural deficit;Edema;Decreased handling tolerance;Decreased ADLs -BB -- -- -- Barriers to Discharge Current Mobility Status;Inaccessible home environment;Decreased caregiver support;Cognition;Decreased safety awareness -BB -- -- -- Barriers to Discharge Comments Pt states she has stairs to enter her home, but I am unsure if this is accurate, as pt has been WC bound since Nov 2019. Pt does not have 24/7 care in the home. -BB ---- -- Plan Plan of care initiated;If this is the last note, consider this the discharge summary -BB -- --Attempt evaluation as tolerated -EW -- PT Recommendation/Plan (S) [facility] Facility -BB -- (S) Defer at this time -EW -- PT Frequency 3-5x/wk -BB -- -- -- Treatment/Interventions Balance Training;Bed mobility;Endurance training;Equipment eval/education;Functional activity;Functional transfer training;Midline orientation;Neuromuscular re-education;Parent/caregiver training and education;Range of motion;Strengthening;Therapeutic activity;Therapeutic exercise;Transfer training;UE motor function/functional skills;Wheelchair mobility/management -BB -- -- -- PT Equipment Recommended Other (Comment) further assessment required pending pt progress w/ mobility -BB -- -- -- Progress Slow progress, decreased activity tolerance -BB -- -- -- PT - OK to Discharge No -BB -- No -EW -- PT Evaluation Complete Yes -BB -- -- -- User Franco (r) = Recorded By, (t) = Taken By, (c) = Cosigned By Initials Name Effective Dates BB Genesis Boateng, DPT 12/03/18 - MW Kaitlin Vallejo, OT 11/28/19 - EW Ivelisse Gonzalez, PT 03/23/20 - PT TREATMENT (last 168 hours) PT Treatment Row Name 06/25/20 1054 PT Last Visit Session Type Treatment -ES (r) BB (t) Subjective Comment Pt reports 8/10 pain and RN states pt just had pain meds approx 15 min ago. Pt is pleasant and cooperative and agrees to PT. PT completed session w/ assistance of pediatric sports medicine specialist to maximize safety with all functional mobility. -BB Family/Caregiver Present No -BB Current Functional Status PT Functional Mobility rolls BRENDON with mod assist x1 + bedrail in each direction, supine-->sit EOB with max assist x2 + bedrail, sits EOB x14 min w/ mod-max assist x1 for posterior support and SBA to CGA from PT for anterior support - pt worked on forward trunk flexion and reaching for objects w/each UE, sit-->supine w/ mod assist x1 + bedrail, transfers bed-->Arevalo chair with total assist via Prism amisha lift and repositioning sling, pt positioned in upright sitting w/ chair alarm placed and activated + call light and all needs + lunch tray in place - RN notified. -BB Precautions Precautions Bed/Chair Alarm;Fall risk;Safety -BB Activity Tolerance Endurance Tolerates 30 min activity with multiple rests -ES (r) BB (t) Activity Tolerance Comments Vitals: BP 154/73 HR 77 bpm O2 100% on room air. -ES (r) BB (t) Pain Assessment Pain Assessment 0-10 -ES (r) BB (t) Pain Score 8 -ES (r) BB (t) Patient's Stated Pain Goal No pain -ES (r) BB (t) Pain Type Surgical pain -ES (r) BB (t) Pain Location Leg -ES (r) BB (t) Pain Orientation Left -ES (r) BB (t) Cognition Orientation Oriented X4 (person, place, time, situation) -ES (r) BB (t) Balance Balance Yes -ES (r) BB (t) Bed Mobility Bed Mobility Yes -BB Transfers Transfer Yes -BB Ambulation Ambulation No -BB Stairs Stairs No -BB Stair Comments not applicable -BB User Franco (r) = Recorded By, (t) = Taken By, (c) = Cosigned By Initials Name Effective Dates BB Genesis Boateng DPT 12/03/18 - ES Ivelisse March OT 12/03/18 - PT Notes (Notes from 06/23/20 through 06/25/20) 06/23/2020 9:59 AM Progress Notes signed by Ivelisse Gonzalez PT 06/24/2020 11:16 AM Progress Notes signed by Genesis Boateng DPT 06/24/2020 4:56 PM Progress Notes signed by Genesis Boateng DPT * ECIN Note - Preeti Martinez LCSW - 06/25/2020 2:56 PM CDT Patient Information: OT Eval and Treat Last 72 Hours OT Evaluation Row Name 06/24/20 1319 06/23/20 1139 Chart Reviewed Yes -MW Yes -CL Session Type Evaluation -MW Evaluation -CL OT Received On 06/24/20 -MW 06/23/20 -CL Safe Environment Arm Band Checked;Chair Alarm placed and activated;Call Light within Reach;NotifiedRN -MW -- Subjective Agreeable to Therapy -MW -- Subjective Comment -- When asked if she would participate in OT, pt reports I will just yell . Educated pt in OT services. Patient agrees to try and work with OT in pm if her pain is better . -CL OT Missed Visit Reason -- Patient declined -CL Additional Pertinent History Pt is a 65yo F with PMHx sig for dementia, HTN, DMII, HLD, osteomyelitis, R AKA, ventral hernia. Pt admitted 06/16 via EMS with concern for osteomyelitis. Of note pt was onhospice for osteomyelitis, but then the infection improved and the patient was taken off hospice. Pt is now s/p L AKA 06/19. Developed hematemesis, possible gastric ischemia with spontaneous GI perf and fecal impaction. Deemed not a surgical candidate. EGD on 06/22 was cancelled. -MW 65yo F with PMHx sig for dementia, HTN, DMII, HLD, osteomyelitis presenting with concern for osteomyelitis. Per EMS, patient was less responsive today, concern for osteomyelitis and that the patient would need her leg amputated. EMS states that patient was on hospice for osteomyelitis, but then the infection got better and the patient was taken off hospice. Family called to get the patient admitted to have the legamputated. -CL Family/Caregiver Present No -MW -- Precautions Bed/Chair Alarm;Fall risk;Safety -MW -- Type of Home Apartment -MW -- Home Layout One level -MW -- Home Access Stairs to enter with rails -MW -- Bathroom Accessibility Not accessible -MW -- Additional Comments Pt is a questionable historian. Pt reports daughter and hospice staff was previously assisting her with functional transfers to and from bed to hospice chair from bed using amisha lift. Both lift and hospice chair were taken with hospice staff at discharge. Pt reports she is supposed to be getting a wheelchair from a family friend. 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 Hospice staff completed bathing 2x/week. workers compensation legal secretary 4 hours day Monday-Monday that completed cleaning and brought TV dinners. Reports daughter assists with dressing. Daughter works during the day -MW -- Feeding: Where assessed Chair -MW -- Feeding: Level of assistance Standby assist Set up -MW -- Pain Assessment 0-10 -MW -- Pain Score 5 - Moderate pain -MW -- Pain Type Surgical pain -MW -- Pain Location Leg -MW -- Pain Orientation Left -MW -- Pain Frequency Constant/continuous -MW -- Clinical Progression Not changed -MW -- Pain Interventions Repositioned;Rest;RN Notified -MW -- Overall Cognitive Status Impaired -MW -- Arousal/Alertness Alert -MW -- Attention Span Attends with cues to redirect -MW -- Orientation Oriented X4 (person, place, time, situation) Pt did not know exact date, but knew monthand year -MW -- Compliance/Behavior Easy to engage -MW -- Bed Mobility Comments 1 Supine>rolling R>rolling L maximal assist 1-2 for force production. Verbal cues for sequencing and reaching across body with BUEs. Once sidelying pt holds self using bedrail CGA-minimal assist. -MW -- Bed Mobility Comments 2 Supine<>sitting EOB maximal assistx2 for force production of trunk, hips, and BLE management. HOB flat. Verbal cues for sequencing. Upon sitting EOB pt initially requires maximal assistx2 and minimal assistx1 for posterior lean due to LLE pain, but pt progresses to moderate assistx1 and minimal assistx1. Pt sits EOB approx 10 mins. -MW -- Trials/Comments 1 Bed>arevalo chair using reposition sling and manual amisha lift dependently -MW -- Comments BP 130/69, HR 83, O2 97% on room air. Pt left seated in arevalo chair with all needs met and chair alarm checked and engaged at end of session. Pt educated on using call light -MW -- Prognosis Good -MW -- Problem List Decreased endurance;Decreased balance;Decreased functional mobility;Decreased ADL independence;Decreased IADL independence;Decreased cognition;Decreased safe judgment during ADL -MW -- Barriers to Discharge Current Mobility Status -MW -- Plan Plan of care initiated;If this is the last note, consider this the discharge summary -MW -- OT Recommendation (S) [facility] Facility -MW -- OT Frequency 3-5x/wk -MW -- Treatment/Interventions ADL/IADL retraining;Balance Training;Endurance training;Functional activity;Functional mobility training;Functional transfer training;Parent/caregiver training and education;Strengthening;Therapeutic activity;Therapeutic exercise -MW -- OT Equipment Recommended -- will continue to assess -MW -- Progress Progressing toward goals -MW -- OT Evaluation Complete Yes -MW -- User Franco (r) = Recorded By, (t) = Taken By, (c) = Cosigned By Initials Name Effective Dates CL Jennifer Phillips, OT 02/11/19 - MW Kaitlin Vallejo, OT 11/28/19 - OT Treatment Row Name 06/25/20 1015 Session Type Treatment -ES OT Received On 06/25/20 -ES Safe Environment Arm Band Checked;Bed Alarm placed and activated -ES Subjective Agreeable to Therapy -ES Family/Caregiver Present No -ES Precautions Fall risk;Bed/Chair Alarm -ES Pain Assessment 0-10 -ES Pain Score 0 - No pain -ES Pain Location Leg -ES Pain Orientation Left -ES Clinical Progression Gradually worsening 5/5 with movement -ES Pain Interventions RN Notified;Repositioned;Increased activity;Distraction;Emotional support -ES Grooming: Where assessed Supine, bed -ES Grooming: Level of assistance Standby Assist -ES Bed Mobility Comments 1 mod assist roll towards R side, max assist roll to L -ES Trials/Comments 1 not attempted this date as pt calls out in pain with movement of LLE- RN notified-ES Other Exercise Tool 1 2# dowel 15x: backward rowing;elbow flexion, chest press, forward rowing; 2# weight pronation/supination; cues for technique and positioning -ES Cognition Comments functional conversation during session -ES Orientation Oriented to person;Oriented to place;Oriented to situation -ES Compliance/Behavior Easy to engage -ES Additional Activities Comments worked on desensitization of L AKA, pt reports increased pain; worked on hands over hands desensitization technique to assist with pain control approx 5 min -ES Prognosis Fair -ES Plan Continue with current plan -ES OT Recommendation (S) [facility] -ES User Franco (r) = Recorded By, (t) = Taken By, (c) = Cosigned By Initials Name Effective Dates ES Ivelisse March OT 12/03/18 - OT Notes (Notes from 06/23/20 through 06/25/20) 06/23/2020 11:42 AM Progress Notes signed by Jennifer Phillips OT 06/24/2020 3:00 PM Progress Notes signed by Kaitlin Vallejo OT 06/25/2020 12:03 PM Progress Notes signed by Ivelisse March OT * Plan of Care - Preeti Martinez LCSW - 06/25/2020 11:34 AM CDT Message left this morning for the patient's daughter,Lindy Turner to call me. * Plan of Care - Yaquelin Telles RN - 06/24/2020 6:30 PM CDT Problem: Activity: Goal: Mobility will improve Outcome: Progressing Problem: Lack of Knowledge: Goal: Understanding of ways to prevent future skin breakdown will improve Outcome: Progressing Goal: Ability to identify appropriate dietary choices will improve Outcome: Progressing Problem: Nutritional: Goal: Dietary intake will improve Outcome: Progressing Goal: Ability to maintain a balanced intake and output will improve Outcome: Progressing Problem: Skin Integrity: Goal: Risk for impaired skin integrity will decrease Outcome: Progressing Goal: Ability to demonstrate warm and dry skin will improve Outcome: Progressing Goal: Circulation will improve to fullest extent possible Outcome: Progressing Problem: Health Behavior: Goal: Understanding of discharge needs will improve Outcome: Progressing Goals: Clinical Goals for the Shift: VSS, pain control, tolerate diet, turn [id number], work with therapy, monitor surgical site, safety, comfort Summary: VSS, pain under control with PRN medications, tolerating GI soft diet with no complaints of nausea or abdominal pain, turned [id number], up to chair with therapy, surgical site dry and intact, straight cathed for bladder scan >700, now resting comfortably in bed with call light in reach. * Plan of Care - Evelin Reaves RN - 06/24/2020 7:00 AM CDT Problem: Activity: Goal: Mobility will improve Outcome: Progressing Problem: Lack of Knowledge: Goal: Understanding of ways to prevent future skin breakdown will improve Outcome: Progressing Goal: Ability to identify appropriate dietary choices will improve Outcome: Progressing Problem: Nutritional: Goal: Dietary intake will improve Outcome: Progressing Goal: Ability to maintain a balanced intake and output will improve Outcome: Progressing Problem: Skin Integrity: Goal: Risk for impaired skin integrity will decrease Outcome: Progressing Goal: Ability to demonstrate warm and dry skin will improve Outcome: Progressing Goal: Circulation will improve to fullest extent possible Outcome: Progressing Problem: Health Behavior: Goal: Understanding of discharge needs will improve Outcome: Progressing Goals: Clinical Goals for the Shift: monitor vs, pain control, check void, rest, safety Summary: VSS. Pain control with PRN meds. Voiding, purewick in place. Dressing changed. Resting in bed with call light within reach. * Plan of Care - Preeti Martinez LCSW - 06/23/2020 3:40 PM CDT I have left a message today for the patient's daughter,Lindy Turner. * Plan of Care - Charity Schroeder RN - 06/23/2020 4:20 AM CDT Goals: Clinical Goals for the Shift: VSS, fluids, pain control, q6 h/h, safety, rest Summary: Pt arrived to [facility] from ICU approximately 2230. VSS. A&Ox3 with garbled like speech d/t missing teeth. L AKA dressing clean/dry/intact. Kaplan draining to gravity. Hospitalist ok'd to leave in for now. Abdomen distended. IVF infusing. Slept comfortably for most of shift. On special mattress. Will continue with plan of care. Charity Schroeder RN * Plan of Care - Preeti Martinez LCSW - 06/22/2020 9:51 AM CDT Patient transferred to ICU room # 599.Report provided to Divya,social work case manager who will follow the patient. * Provider Query - Summer Anguiano MD - 06/22/2020 8:00 AM CDT Specify the level of the amputation and document in the medical record and on the form below. Level of amputation: ___ High (proximal portion of the bone) ___ Mid (middle portion of the bone) __x_ Low (distal portion of the bone) Additional Provider Response: Discussed with Dr. Peña Operative notes states: 06/19 Itryr-lcl-[id number] amputation of the left This documentation will become part of the patient???s medical record. 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 VSS, calm, oriented to person and hospital, somewhat to the situation, otherwise mildly confused. Pt was being straight cath'ed on the floor q6 due to urinary retention, so a kaplan was placed in ICU. UOP=1,000 ml/shift * CT abdomen done r/t concerns about abdominal distention and ventral hernia = venous gas and extraluminal air. CCP suspecting ischemic bowel. CCP consulted with Dr Peña, surgeon, and the pt's son Braulio, the plan is to treat conservatively with NO plans for surgery, all are in agreement. Pt was pr eviously a hospice patient, plan for possibly palliative consult later today. Unclear on whether ornot pt will proceed with planned EGD later today, oncoming CCP will clarify this decision. * pain complaint to SI from Marylu MERAZ. Dilaudid admin x1. Labs: note: chemistry sent to lab at 3:52 am, as of 6:13 am lab results still pending, per lab there was a machine issue, but it is now up and running. * WBC continues to climb, * concern about bleeding on the floor. Hgb =8.2 during CAR RENTAL CLERK, Hgb = 8.7 & 8.5 in ICU. 06/21/2020 05:58 06/21/2020 19:08 06/21/2020 22:21 06/22/2020 03:52 WBC 6.9 9.9 8.8 Hgb 6.1 (Critical) 8.2 (L) 8.7 (L) 8.5 (L) Hct 18.8 (L) 24.2 (L) 25.5 (L) 25.1 (L) Plt 191 176 195 06/16/2020 13:18 06/21/2020 22:21 Lactate 1.9 1.1 06/19/2020 05:50 06/21/2020 22:21 06/22/2020 03:52 Na 135 137 137 K 3.9 4.0 3.7 CO2 30 33 (H) 29 Anion gap 8 6 11 BUN 16 19 18 Creatinine 0.63 0.65 0.65 Glucose 184 162 102 Phosphorus, pl 2.9 2.6 * Plan of Care - Minoo Mckeon RN - 06/21/2020 6:22 PM CDT Goals: Clinical Goals for the Shift: VSS, pain control, tolerate diet, increase PO intake, Q2 turns, monitor urine output, safety Summary: Pt VSS throughout shift. 1 unit PRBC administered in the AM for critical Hgb of 6.1, pt tolerated well with no suspected reactions. Pain controlled with PRN Dilaudid. Pt much more alert today, able to feed herself lunch after tray setup. Tolerated diet with no complications until pt was turned for dressing change after dinner; pt complained of nausea, threw up small amount of brown emesis leftover from lunch, PRN Zofran administered. Q2 turns and specialty mattress in place for pressure injury prevention. Q8 bladder scans completed per order, both <250mL so no straight cath completed. MD at bedside after 2nd bladder scan, agreed to insert kaplan and leave it indwelling if output >300mL. Bed alarmin place for fall prevention. Call light within reach, cooperative with use. Will continue to monitor. Problem: Lack of Knowledge: Goal: Understanding of ways to prevent future skin breakdown will improve Outcome: Progressing Goal: Ability to identify appropriate dietary choices will improve Outcome: Progressing Problem: Nutritional: Goal: Dietary intake will improve Outcome: Progressing Goal: Ability to maintain a balanced intake and output will improve Outcome: Progressing Problem: Skin Integrity: Goal: Ability to demonstrate warm and dry skin will improve Outcome: Progressing Problem: Health Behavior: Goal: Understanding of discharge needs will improve Outcome: Progressing Problem: Activity: Goal: Mobility will improve Outcome: Not Progressing Problem: Skin Integrity: Goal: Risk for impaired skin integrity will decrease Outcome: Not Progressing Goal: Circulation will improve to fullest extent possible Outcome: Not Progressing * Plan of Care - Minoo Mckeon RN - 06/20/2020 5:37 PM CDT Goals: Clinical Goals for the Shift: VSS, pain control, tolerate diet, monitor BG, I/O, Q2 turn, safety Summary: VSS throughout shift. Pain uncontrolled with PRN Tylenol and Roxicodone, notified and PRN Dilaudid added to options. Pt refused most of lunch and dinner, states she wasn't hungry. BG checked and treated per MAY. Pt didn't void by 1300, MD notified and straight cath completed with 750mL out. Now a check void by 2330. Specialty mattress and Q2 turns in place for pressure injury prevention, pt cooperative with most turns. Bed alarm in place for fall prevention. Call light within reach,cooperative with use. Will continue to monitor. Problem: Skin Integrity: Goal: Ability to demonstrate warm and dry skin will improve Outcome: Progressing Problem: Activity: Goal: Mobility will improve Outcome: Not Progressing Problem: Lack of Knowledge: Goal: Understanding of ways to prevent future skin breakdown will improve Outcome: Not Progressing Goal: Ability to identify appropriate dietary choices will improve Outcome: Not Progressing Problem: Nutritional: Goal: Dietary intake will improve Outcome: Not Progressing Goal: Ability to maintain a balanced intake and output will improve Outcome: Not Progressing Problem: Skin Integrity: Goal: Risk for impaired skin integrity will decrease Outcome: Not Progressing Goal: Circulation will improve to fullest extent possible Outcome: Not Progressing Problem: Health Behavior: Goal: Understanding of discharge needs will improve Outcome: Not Progressing * Plan of Care - Fidelina Riggins RN - 06/20/2020 6:00 AM CDT Goals: Clinical Goals for the Shift: VSS, pain control, I/O, monitor BG, rest and comfort, safety Summary: VS WDL post-op. Pain controlled with PO Funmilayo and tylenol, IV fluids infusing per MAY. BG stable post op. Bed alarm in place, call light within reach, resting in bed at this time, will continue to monitor. * Perioperative Nursing Note - Tika Sales RN - 06/19/2020 7:52 PM CDT PT TRANSPORTED IN STABLE CONDITION VIA BED TO PACU. SAFETY AND COMFORT MEASURES PROVIDED. ACCOMPANIED BY ANESTHESIA AND PROCESS DESCRIPTION WRITER. WARM BLANKETS X-3. * Perioperative Nursing Note - Tika Sales RN - 06/19/2020 6:31 PM CDT PT'S ID AND PROCEDURE WERE CONFIRMED BY OR TEAM. AFTER THE SURGICAL TIME OUT SURGERY BEGAN PT IS TOLERATING WELL. * Op Note - Arley Peña MD - 06/19/2020 12:00 AM CDT Preoperative Diagnosis Ischemic degree of peripheral vascular disease left lower extremity, osteomyelitis of left heel. Postoperative Diagnosis Findings being severely enlarged veins and severely calcified superficial femoral artery that was occluded. Operation Vmagj-hbr-jatn amputation of the left. Anesthesia General. Procedure in Detail Patient was placed in supine position. General anesthesia was administered. She had received cefepime earlier, and vancomycin was being given as procedure began. After preparing the left lower extremity with ChloraPrep and appropriately draping, a fishmouth incision was tailored where the anterior flap was longer than posterior flap. Cutting was carried out with electrocautery, and then sometimesLigaSure was used. As the cutting was carried out, the superficial femoral artery and vein were identified. These branches were identified. They were controlled with 3-0 silk ligature. Some of the branches were controlled with LigaSure. After cutting the anterior muscles, the femur was exposed. Mari osteum was elevated, and the femur was transected with an electrical saw several centimeters proximally. The posterior muscles were cut. Eventually, the leg was amputated. There was some bleeding in the hamstring muscles that was controlled with 3-0 silk stick ties. Some of them electrocauterized. In the end, hemostasis was accomplished. Irrigation was carried out with saline. Several interrupted sutures of 3-0 Vicryl were placed for the fascia. Skin was closed with samara; 4 x 4 and compression dressings were being applied. Sponge count was reported to be correct on 2 occasions. The patientwas being transferred to recovery in satisfactory condition. The patient's blood pressure was maintained. However, low dose of Hebert-Synephrine was being given by the anesthesia department. She received 1000 mL of IV fluids. The estimated blood loss was 350 mL. No blood replacement was necessary. Job ID/VF Job ID: [id number] * Plan of Care - Kathy Pineda RN - 06/18/2020 6:08 AM CDT Problem: Activity: Goal: Mobility will improve Outcome: Progressing Problem: Lack of Knowledge: Goal: Understanding of ways to prevent future skin breakdown will improve Outcome: Progressing Goal: Ability to identify appropriate dietary choices will improve Outcome: Progressing Problem: Nutritional: Goal: Dietary intake will improve Outcome: Progressing Goal: Ability to maintain a balanced intake and output will improve Outcome: Progressing Problem: Skin Integrity: Goal: Risk for impaired skin integrity will decrease Outcome: Progressing Goal: Ability to demonstrate warm and dry skin will improve Outcome: Progressing Goal: Circulation will improve to fullest extent possible Outcome: Progressing Problem: Health Behavior: Goal: Understanding of discharge needs will improve Outcome: Progressing Goals: Clinical Goals for the Shift: VSS, turns, comfort, safety, rest Summary: VSS. Pt denies pain. Turned throughout the night. No significant events over night. Bed alarm on. IV abx given. Call light within reach. Will continue plan of care. * Plan of Care - Doris Jesus MSW - 06/17/2020 2:12 PM CDT CM Initial Assessment Interview Note Information Obtained From: Adult child Name: daughterAilyn [phone] (06/17/20 1409) Admission Source: from home to [facility] ER Plan Includes: Discharge needs Primary Source of Transportation: family Health Insurance Coverage: Medicare A/B and Medicaid Primary Care Provider: Zeke Puente MD Prior to Admission: Primary Caregiver: Family Support System: Children, Family members, Home care staff Home Care Services: Yes Type of Home Care Services: workers compensation legal secretary Home care service name and phone number: in the home Monday- Monday from 9a-1p Durable Medical Equipment: Wheelchair, Walker (wheeled) Living Arrangements: Children Type of Residence: Apartment Steps in home? : Yes, Inside home Number of steps inside:: 12 steps Medication management: Needs Assistance (Comment) (06/17/201408) Potential discharge needs include: SNF vs C Behavioral Health Services: Behavioral Health Services: No (06/17/201408) [facility] to[facility], (06/17/201408) Additional Information: SW received consult for discharge planning. SW spoke with patient's daughter, Ailyn to complete social assessment. Patient lives with Ailyn and granddaughter. Ailyn does work, there is a medicaid choreworker who comes in from 9a-1pm Monday. Ailyn's 27 year old daughter helps until Ailyn comes home. Patient primarily uses a wheelchair and needs assistance for all ADLs/IADLs. Patient was recently on hospice and discharged from their services due to improvement. Ailyn states she and her brothers have spoken about the patient going to SNF at discharge. Patient does not have a written POA, [facility] [phone]. Ailyn is the youngest child although stated her siblings and her had already talked about discharge needs prior to hospitalization. Patient's Identified Problem/Goal Problem: Ensure acute medical needs are met and that patient has a safe discharge plan. Goal: Secure a discharge plan that patient/family are agreeable with and ensure patient has continuum of care. Case management will follow for discharge planning and send referrals as needed. Goals include: To assure continuity of care, To maximize coping skills, To assure patient is in a safe environment and To assure access to community resources. Plan includes: 1. Collaboration with patient, MD, direct care nurse, Forest Engineer, Nurse Coordinator and other members of the health care team to assure needed interventions completed. 2. Return patient to optimal level of self-care post discharge. 3. Criminal Intelligence Analyst will follow for Discharge Planning - interventions as needed 4. Anticipated level of care at discharge 5. Planned Discharge Disposition [facility] * Plan of Care - Holly Smallwood RN - 06/17/2020 1:00 PM CDT Pt with complex medical history/discharge events. Noted in the records pt with previous right AKA with LTAC discharge back in the fall. Prior to that time, pt was in a SNF in [place], [place]. At some point she had hospice but not sure for how long, apparently those services were ceased. Pt was admitted for left leg pain, recent tx of infection, has the need for possible amputation. rn social services has been consulted as likely will need placement once again. Podiatry eval is pending. Current txdoes include IV abxs. Weight bearing status will need to be determined if and when therapies are ordered. Will continue to monitor along with social work case manager. * Plan of Care - Kathy Pineda RN - 06/17/2020 4:21 AM CDT Problem: Activity: Goal: Mobility will improve Outcome: Progressing Problem: Lack of Knowledge: Goal: Understanding of ways to prevent future skin breakdown will improve Outcome: Progressing Goal: Ability to identify appropriate dietary choices will improve Outcome: Progressing Problem: Nutritional: Goal: Dietary intake will improve Outcome: Progressing Goal: Ability to maintain a balanced intake and output will improve Outcome: Progressing Problem: Skin Integrity: Goal: Risk for impaired skin integrity will decrease Outcome: Progressing Goal: Ability to demonstrate warm and dry skin will improve Outcome: Progressing Goal: Circulation will improve to fullest extent possible Outcome: Progressing Goals: Clinical Goals for the Shift: VSS, pain control, comfort, safety Summary: VSS. Patient denies pain. Bed alarm on. Left morel boot on. Resting in bed on 2L of O2. Call light within reach. Will continue plan of care. documented in this encounter Plan of Treatment Not on file documented as of this encounter Procedures Procedure Name Priority Date/Time Associated Diagnosis Comments GA CRITICAL CARE ILL/INJURED PATIENT INIT 30-74 MIN Routine 06/26/2020 4:07 PM CDT POCT GLUCOSE DEVICE Routine 06/26/2020 1 1:19 AM CDT POCT GLUCOSE DEVICE Routine 06/26/2020 6 :10 AM CDT POCT GLUCOSE DEVICE Routine 06/25/2020 1 0:34 PM CDT POCT GLUCOSE DEVICE Routine 06/25/2020 4 :35 PM CDT POCT GLUCOSE DEVICE Routine 06/25/2020 1 1:25 AM CDT POCT GLUCOSE DEVICE Routine 06/25/2020 6 :40 AM CDT POCT GLUCOSE DEVICE Routine 06/24/2020 9 :07 PM CDT POCT GLUCOSE DEVICE Routine 06/24/2020 5 :13 PM CDT POCT GLUCOSE DEVICE Routine 06/24/2020 1 1:33 AM CDT POCT GLUCOSE DEVICE Routine 06/24/2020 7 :50 AM CDT EGFR Routine 06/24/2020 5:38 AM CDT DIFFERENTIAL AUTO Routine 06/24/2020 5:3 8 AM CDT CBC WITH AUTO DIFFERENTIAL Routine 06/24/2020 5:38 AM CDT BASIC METABOLIC PANEL Routine 06/24/2020 5:38 AM CDT POCT GLUCOSE DEVICE Routine 06/23/2020 1 0:09 PM CDT POCT GLUCOSE DEVICE Routine 06/23/2020 4 :32 PM CDT POCT GLUCOSE DEVICE Routine 06/23/2020 1 1:32 AM CDT ADD ON LAB TEST Add-On 06/23/2020 8:06 AM CDT POCT GLUCOSE DEVICE Routine 06/23/2020 6 :06 AM CDT DIFFERENTIAL AUTO STAT 06/23/2020 6:0 1 AM CDT CBC WITH AUTO DIFFERENTIAL STAT 06/23/2020 6:01 AM CDT HEMOGLOBIN AND HEMATOCRIT Timed 06/23/2020 6:01 AM CDT HEMOGLOBIN AND HEMATOCRIT Timed 06/23/2020 12:12 AM CDT POCT GLUCOSE DEVICE Routine 06/22/2020 8 :12 PM CDT HEMOGLOBIN AND HEMATOCRIT Timed 06/22/2020 8:12 PM CDT POCT GLUCOSE DEVICE Routine 06/22/2020 6 :42 PM CDT POCT GLUCOSE DEVICE Routine 06/22/2020 1 :08 PM CDT HEMOGLOBIN AND HEMATOCRIT Timed 06/22/2020 12:33 PM CDT POCT GLUCOSE DEVICE Routine 06/22/2020 9 :07 AM CDT EGFR Routine 06/22/2020 3:52 AM CDT DIFFERENTIAL AUTO Routine 06/22/2020 3:5 2 AM CDT CBC WITH AUTO DIFFERENTIAL Routine 06/22/2020 3:52 AM CDT RENAL FUNCTION PANEL Routine 06/22/2020 3:52 AM CDT LACTATE STAT 06/21/2020 10:21 PM CDT EGFR STAT 06/21/2020 10:21 PM CDT CBC WITHOUT DIFFERENTIAL STAT 06/21/2020 10:21 PM CDT RENAL FUNCTION PANEL STAT 06/21/2020 10:21 PM CDT POCT GLUCOSE DEVICE Routine 06/21/2020 9 :[address] ABDOMEN PELVIS W CONTRAST Critical/Life-T hreatening 06/21/2020 9:17 PM CDT HEMOGLOBIN AND HEMATOCRIT STAT 06/21/2020 7:08 PM CDT POCT GLUCOSE DEVICE Routine 06/21/2020 4 :35 PM CDT POCT GLUCOSE DEVICE Routine 06/21/2020 1 :36 PM CDT TRANSFUSE RED BLOOD CELLS Timed 06/21/2020 9:28 AM CDT TYPE AND SCREEN Timed 06/21/2020 6:56 AM CDT PREPARE RBC STAT 06/21/2020 6:41 AM CDT POCT GLUCOSE DEVICE Routine 06/21/2020 5 :59 AM CDT DIFFERENTIAL AUTO Routine 06/21/2020 5:5 8 AM CDT CBC WITH AUTO DIFFERENTIAL Routine 06/21/2020 5:58 AM CDT POCT GLUCOSE DEVICE Routine 06/20/2020 8 :21 PM CDT POCT GLUCOSE DEVICE Routine 06/20/2020 4 :46 PM CDT POCT GLUCOSE DEVICE Routine 06/20/2020 1 1:27 AM CDT POCT GLUCOSE DEVICE Routine 06/20/2020 6 :36 AM CDT DIFFERENTIAL AUTO Routine 06/20/2020 6:0 3 AM CDT CBC WITH AUTO DIFFERENTIAL Routine 06/20/2020 6:03 AM CDT POCT GLUCOSE DEVICE Routine 06/19/2020 1 0:24 PM CDT POCT GLUCOSE DEVICE Routine 06/19/2020 8 :03 PM CDT SURGICAL PATHOLOGY Routine 06/19/2020 6: 38 PM CDT PVD (peripheral vascular disease) ([facility]/HCC) AMPUTATION ABOVE KNEE 06/19/2020 5:52 PM CDT RIGHT KNEE POCT GLUCOSE DEVICE Routine 06/19/2020 5 :02 PM CDT POCT GLUCOSE DEVICE Routine 06/19/2020 4 :54 PM CDT VANCOMYCIN LEVEL TROUGH Timed 06/19/2020 3:32 PM CDT POCT GLUCOSE DEVICE Routine 06/19/2020 1 1:34 AM CDT URINALYSIS AND REFLEX TO MICROSCOPIC AND CULTURE STAT 06/19/2020 8:14 AM CDT URINALYSIS, MICROSCOPIC ONLY STAT 06/19/2020 8:14 AM CDT URINE CULTURE STAT 06/19/2020 8:14 AM CDT COVID-19 CORONAVIRUS ANTIGEN Routine 06/19/2020 8:04 AM CDT POCT GLUCOSE DEVICE Routine 06/19/2020 5 :56 AM CDT EGFR Routine 06/19/2020 5:50 AM CDT BASIC METABOLIC PANEL Routine 06/19/2020 5:50 AM CDT POCT GLUCOSE DEVICE Routine 06/18/2020 8 :59 PM CDT POCT GLUCOSE DEVICE Routine 06/18/2020 4 :52 PM CDT POCT GLUCOSE DEVICE Routine 06/18/2020 1 1:27 AM CDT POCT GLUCOSE DEVICE Routine 06/18/2020 6 :23 AM CDT THYROID FUNCTION CASCADE Routine 06/18/2020 5:43 AM CDT T4, FREE Routine 06/18/2020 5:43 AM CDT HEMOGLOBIN A1C Routine 06/18/2020 5:43 AM CDT POCT GLUCOSE DEVICE Routine 06/17/2020 1 0:22 PM CDT CTA ABDOMINAL AORTA AND BILATERAL ILIOFEMORAL RUNOFF IP Routine 06/17/2020 6:19 PM CDT POCT GLUCOSE DEVICE Routine 06/17/2020 4 :51 PM CDT BLOOD CULTURE STAT 06/17/2020 4:26 PM CDT BLOOD CULTURE STAT 06/17/2020 4:26 PM CDT POCT GLUCOSE DEVICE Routine 06/17/2020 1 1:57 AM CDT US ZAYNAB IP Routine 06/17/2020 10:41 AM CDT POCT GLUCOSE DEVICE Routine 06/17/2020 6 :45 AM CDT EGFR Routine 06/17/2020 6:37 AM CDT DIFFERENTIAL AUTO Routine 06/17/2020 6:3 7 AM CDT CBC WITH AUTO DIFFERENTIAL Routine 06/17/2020 6:37 AM CDT APTT Routine 06/17/2020 6:37 AM CDT PROTIME-INR Routine 06/17/2020 6:37 AM CDT PHOSPHORUS Routine 06/17/2020 6:37 AM CDT MAGNESIUM Routine 06/17/2020 6:37 AM CDT COMPREHENSIVE METABOLIC PANEL Routine 06/17/2020 6:37 AM CDT POCT GLUCOSE DEVICE Routine 06/16/2020 1 0:32 PM CDT POCT GLUCOSE DEVICE Routine 06/16/2020 8 :[address] HEAD WO CONTRAST ED 06/16/2020 5 :53 PM CDT RESPIRATORY PATHOGEN PANEL Routine 06/16/2020 5:33 PM CDT POCT GLUCOSE DEVICE Routine 06/16/2020 4 :39 PM CDT XR FOOT LEFT 3 OR MORE VIEWS ED 06/16/2020 2:43 PM CDT XR CHEST 1 VIEW ED 06/16/2020 2:[address] ABDOMEN PELVIS W CONTRAST ED 06/16/2020 2:36 PM CDT ADD ON LAB TEST Add-On 06/16/2020 2:02 PM CDT ADD ON LAB TEST Add-On 06/16/2020 1:50 PM CDT SEPSIS LACTATE WITH REFLEX STAT 06/16/2020 1:18 PM CDT EGFR STAT 06/16/2020 1:18 PM CDT DIFFERENTIAL AUTO STAT 06/16/2020 1:1 8 PM CDT CBC WITH AUTO DIFFERENTIAL STAT 06/16/2020 1:18 PM CDT BLOOD CULTURE STAT 06/16/2020 1:18 PM CDT BLOOD CULTURE STAT 06/16/2020 1:18 PM CDT ERYTHROCYTE SEDIMENTATION RATE STAT 06/16/2020 1:18 PM CDT CRP, HIGH SENSITIVITY STAT 06/16/2020 1:18 PM CDT COMPREHENSIVE METABOLIC PANEL STAT 06/16/2020 1:18 PM CDT POCT GLUCOSE DEVICE Routine 06/16/2020 1 2:58 PM CDT documented in this encounter Results * GA CRITICAL CARE ILL/INJURED PATIENT INIT 30-74 MIN (06/26/2020 4:07 PM CDT) Narrative Preeti Barr MD - 06/26/2020 4:07 PM CDT Preeti Barr MD ? 06/27/2020 11:35 PM Critical Care Performed by: Preeti Barr MD Authorized by: Preeti Barr MD Critical care provider statement: As reflected in the history, physical exam, orders, notes, and/or MDM, I was personally present while the patient was critically ill and provided critical care services for approximately 45 minutes, excluding time involved in separately billable procedures. ??Critical care was necessary to treat or prevent imminent or life-threatening deterioration of the following condition(s): ?? acute delirium and severe neurologic condition ?? sepsis and skin/soft tissue infection ??Critical care was time spent by me providing the following: ? continuous telemetry, continuous pulse oximetry, continuous capnography, interpretation of bedside monitors, imaging, and arterial/venous lab draws, serial bedside patient exams and resuscitation with fluids ?? review prior cultures/records, obtain appropriate cultures and empiric broad coverage antibiotics ?? I provided emergent necessary critical care medicine services to this patient. I ordered and reviewed test results and/or imaging studies. I spent time discussing the management of this critically ill patient with consultants and the medical staff. I spent time discussing the management and therapeutic options for this critically ill patient with the patient themselves or with the appropriate designated surrogate decision-maker. I spent time documenting in the medical record. us Preeti Barr MD IN CLINIC/BEDSIDE ORDERAB LES Final Result * POCT glucose (06/26/2020 11:19 AM CDT) Glucose, POC 97 70 - 140 mg/dL [facility] Comment: For Glucose values <35 mg/dl when Hematocrit is >60 mg/dl,the test may not accurately detect significant hypoglycemia,and testing in the Laboratory should be considered if clinically indicated. Blood specimen (specimen) 06/26/2020 11:19 AM CDT 06/26/2020 11:19 AM CDT Reagan Salinas MD LAB POCT ORDERABLES - DEVICE F inal Result Performing Organization Address [facility] Co de Phone Number [facility] [address] [place] [address] * POCT glucose (06/26/2020 6:10 AM CDT) Glucose, POC 90 70 - 140 mg/dL [facility] Comment: For Glucose values <35 mg/dl when Hematocrit is >60 mg/dl,the test may not accurately detect significant hypoglycemia,and testing in the Laboratory should be considered if clinically indicated. Blood specimen (specimen) 06/26/2020 6:10 AM CDT 06/26/2020 6:10 AM CDT us Reagan Salinas MD LAB POCT ORDERABLES - DEVICE F inal Result Performing Organization Address [facility] Co de Phone Number [facility] [address] [place] [address] * (ABNORMAL) POCT glucose (06/25/2020 10:34 PM CDT) Glucose, POC 170(H) 70 - 140 mg/dL [facility] Comment: For Glucose values <35 mg/dl when Hematocrit is >60 mg/dl,the test may not accurately detect significant hypoglycemia,and testing in the Laboratory should be considered if clinically indicated. Blood specimen (specimen) 06/25/2020 10:34 PM CDT 06/25/2020 10:34 PM CDT Reagan Salinas MD LAB POCT ORDERABLES - DEVICE F inal Result Performing Organization Address [facility] de Phone Number [facility] [address] [facility] [place], [place] [phone] * (ABNORMAL) POCT glucose (06/25/2020 4:35 PM CDT) Glucose, POC 160(H) 70 - 140 mg/dL [facility] Comment: For Glucose values <35 mg/dl when Hematocrit is >60 mg/dl,the test may not accurately detect significant hypoglycemia,and testing in the Laboratory should be considered if clinically indicated. Blood specimen (specimen) 06/25/2020 4:35 PM CDT 06/25/2020 4:35 PM CDT Reagan Salinas MD LAB POCT ORDERABLES - DEVICE F inal Result Performing Organization Address [facility] de Phone Number [facility] [address] [facility] [employer] [place] [address] * (ABNORMAL) POCT glucose (06/25/2020 11:25 AM CDT) Glucose, POC 146(H) 70 - 140 mg/dL [facility] Comment: For Glucose values <35 mg/dl when Hematocrit is >60 mg/dl,the test may not accurately detect significant hypoglycemia,and testing in the Laboratory should be considered if clinically indicated. Blood specimen (specimen) 06/25/2020 11:25 AM CDT 06/25/2020 11:25 AM CDT Result [facility] Reagan Salinas MD LAB POCT ORDERABLES - DEVICE F inal Result Performing Organization Address [facility] Co de Phone Number [facility] [address] [facility] [employer] [place] [address] * POCT glucose (06/25/2020 6:40 AM CDT) Glucose, POC 138 70 - 140 mg/dL [facility] Comment: For Glucose values <35 mg/dl when Hematocrit is >60 mg/dl,the test may not accurately detect significant hypoglycemia,and testing in the Laboratory should be considered if clinically indicated. Blood specimen (specimen) 06/25/2020 6:40 AM CDT 06/25/2020 6:40 AM CDT Result [facility] Reagan Salinas MD LAB POCT ORDERABLES - DEVICE F inal Result Performing Organization Address [facility] de Phone Number [facility] [address] [place] [address] * (ABNORMAL) POCT glucose (06/24/2020 9:07 PM CDT) Glucose, POC 202(H) 70 - 140 mg/dL [facility] Comment: For Glucose values <35 mg/dl when Hematocrit is >60 mg/dl,the test may not accurately detect significant hypoglycemia,and testing in the Laboratory should be considered if clinically indicated. Blood specimen (specimen) 06/24/2020 9:07 PM CDT 06/24/2020 9:07 PM CDT Summer Anguiano MD LAB POCT ORDERABLES - DEVIC E Final Result Performing Organization Address [facility] Co de Phone Number [facility] [address] Department [employer] [place] [address] * (ABNORMAL) POCT glucose (06/24/2020 5:13 PM CDT) Glucose, POC 156(H) 70 - 140 mg/dL [facility] Comment: For Glucose values <35 mg/dl when Hematocrit is >60 mg/dl,the test may not accurately detect significant hypoglycemia,and testing in the Laboratory should be considered if clinically indicated. Blood specimen (specimen) 06/24/2020 5:13 PM CDT 06/24/2020 5:13 PM CDT Summer Anguiano MD LAB POCT ORDERABLES - DEVIC E Final Result Performing Organization Address [facility] Co de Phone Number [facility] [address] [place] [address] * POCT glucose (06/24/2020 11:33 AM CDT) Glucose, POC 112 70 - 140 mg/dL [facility] Comment: For Glucose values <35 mg/dl when Hematocrit is >60 mg/dl,the test may not accurately detect significant hypoglycemia,and testing in the Laboratory should be considered if clinically indicated. Blood specimen (specimen) 06/24/2020 11:33 AM CDT 06/24/2020 11:33 AM CDT Summer Anguiano MD LAB POCT ORDERABLES - DEVIC E Final Result Performing Organization Address [facility] Co de Phone Number [facility] [address] [facility] [place] [address] * POCT glucose (06/24/2020 7:50 AM CDT) Glucose, POC 123 70 - 140 mg/dL [facility] Comment: For Glucose values <35 mg/dl when Hematocrit is >60 mg/dl,the test may not accurately detect significant hypoglycemia,and testing in the Laboratory should be considered if clinically indicated. Blood specimen (specimen) 06/24/2020 7:50 AM CDT 06/24/2020 7:50 AM CDT us Summer Anguiano MD LAB POCT ORDERABLES - DEVIC E Final Result Performing Organization Address [facility] Co de Phone Number [facility] [address] [place] [address] * eGFR (06/24/2020 5:38 AM CDT) eGFR 96 mL/min/1.7 3 m2 [facility] Comment: Interpretive Data Reference Interval Normal ?>/= 90 mL/min/1.73m2 Mildly decreased* ? 60 - 89 mL/min/1.73m2 Mildly to moderately decreased ?45 - 59 mL/min/1.73m2 Moderately to severely decreased ??30 - 44 mL/min/1.73m2 Severely decreased ?15 - 29 mL/min/1.73m2 Kidney Failure ?< 15 ??mL/min/1.73m2 *Relative to young adult level Estimated glomerular filtration rate is determined by the CKD-EPI equation recommended by the National Kidney Foundation (KDIGO 2012 Clinical Practice Guideline for the Evaluation and Management of Chronic Kidney Disease. Kidney Intnl Suppl Mar 2012;3:1). The CKD-EPI equation should not be used for patients with unstable renal function and has not been validated in children and those over 70. Current interpretive data was last reviewed 2020 Blood specimen (specimen) 06/24/2020 5:38 AM CDT 06/24/2020 6:16 AM CDT us Summer Anguiano MD LAB BLOOD ORDERABLES Final Result Performing Organization Address [facility] Co de Phone Number [facility] [address] [place] [address] * (ABNORMAL) Differential, auto (06/24/2020 5:38 AM CDT) Neutrophil abs 7.5(H) 1.7 - 6.5 K/cumm [facility] Imm gran abs 0.5(H) 0.0 - 0.1 K/cumm [facility] Lymphocyte abs 2.2 0.8 - 3.3 K/cumm [facility] Monocyte abs 0.6 0.2 - 0.8 K/cumm [facility] Eosinophil abs 0.2 0.0 - 0.5 K/cumm [facility] Basophil abs 0.1 0.0 - 0.1 K/cumm [facility] Neutrophil pct 68.1 % [facility] Comment: Interpretive Data Percent cell count reference ranges are not reported, since discordance with absolute values may lead to misinterpretation of CBC data. Current Interpretive Data was last revised on 2017. Imm gran pct 4.8 % [facility] Comment: Interpretive Data Percent cell count reference ranges are not reported, since discordance with absolute values may lead to misinterpretation of CBC data. Current Interpretive Data was last revised on 2017. Lymphocyte pct 19.8 % [facility] Comment: Interpretive Data Percent cell count reference ranges are not reported, since discordance with absolute values may lead to misinterpretation of CBC data. Current Interpretive Data was last revised on 2017. Monocyte pct 5.0 % [facility] Comment: Interpretive Data Percent cell count reference ranges are not reported, since discordance with absolute values may lead to misinterpretation of CBC data. Current Interpretive Data was last revised on 2017. Eosinophil pct 1.8 % [facility] Comment: Interpretive Data Percent cell count reference ranges are not reported, since discordance with absolute values may lead to misinterpretation of CBC data. Current Interpretive Data was last revised on 2017. Basophil pct 0.5 % [facility] Comment: Interpretive Data Percent cell count reference ranges are not reported, since discordance with absolute values may lead to misinterpretation of CBC data. Current Interpretive Data was last revised on 2017. Blood specimen (specimen) 06/24/2020 5:38 AM CDT 06/24/2020 6:18 AM CDT Summer Anguiano MD LAB BLOOD ORDERABLES Final Result Performing Organization Address City/[facility]/ZIP Co de Phone Number [facility] [address] Department [place] [address] * (ABNORMAL) Basic metabolic panel (06/24/2020 5:38 AM CDT) [facility] Sodium 137 135 - 145 mmol/L [facility] Potassium, pl 3.7 3.3 - 4.9 mmol/L [facility] Chloride 97 97 - 110 mmol/L [facility] CO2 30 22 - 32 mmol/L [facility] Anion gap 10 2 - 15 mmol/L [facility] BUN 10 8 - 25 mg/dL [facility] Creatinine 0.60 0.60 - 1.10 mg/dL [facility] Glucose 96 70 - 199 mg/dL [facility] Comment: Interpretive Data Fasting glucose >/= 126 mg/dl is diagnostic for diabetes. ?? Fasting is defined as no caloric intake for at least 8 hours. Fasting glucose between 100 mg/dl to 125 mg/dl is diagnostic of prediabetes. In a patient with classic symptoms of hyperglycemia or hyperglycemic crisis, a random glucose >/= 200 mg/dl is diagnostic for diabetes. In the absence of unequivocal hyperglycemia, results should be confirmed by repeat testing. The classification and Diagnosis of Diabetes Diabetes Care 2017;40 (Suppl. 1):S11. Current interpretive data was last revised 2017. Calcium 8.3(L) 8.5 - 10.3 mg/dL [facility] Blood specimen (specimen) 06/24/2020 5:38 AM CDT 06/24/2020 6:16 AM CDT Summer Anguiano MD LAB BLOOD ORDERABLES Final Result Performing Organization Address [facility]/ZIP Co de Phone Number [facility] [address] Department [place] [address] * (ABNORMAL) CBC with auto differential (06/24/2020 5:38 AM CDT) [facility] WBC 11.1(H) 3.8 - 9.9 K/cumm [facility] Hgb 7.6(L) 11.9 - 15.5 g/dL [facility] Hct 23.1(L) 35.6 - 45.5 % [facility] Plt 248 150 - 400 K/cumm [facility] MPV 10.0 9.1 - 12.3 fL [facility] RBC 2.43(L) 3.90 - 5.20 M/cumm [facility] MCV 95.1 81.3 - 96.4 fL [facility] MCH 31.3 27.1 - 33.3 pg [facility] MCHC 32.9 32.3 - 35.7 g/dL [facility] RDW CV 15.8(H) 11.1 - 14.9 % [facility] RDW SD 54.2(H) 35.7 - 48.1 fL [facility] NRBC abs 0.05(H) 0.00 - 0.01 K/cumm [facility] Blood specimen (specimen) 06/24/2020 5:38 AM CDT 06/24/2020 6:18 AM CDT Summer Anguiano MD LAB BLOOD ORDERABLES Final Result [facility] [address] Department [place] [address] * (ABNORMAL) POCT glucose (06/23/2020 10:09 PM CDT) [facility] Glucose, POC 170(H) 70 - 140 mg/dL [facility] Comment: For Glucose values <35 mg/dl when Hematocrit is >60 mg/dl,the test may not accurately detect significant hypoglycemia,and testing in the Laboratory should be considered if clinically indicated. Blood specimen (specimen) 06/23/2020 10:09 PM CDT 06/23/2020 10:09 PM CDT Summer Anguiano MD LAB POCT ORDERABLES - DEVIC E Final Result Performing Organization Address [facility] Co de Phone Number [facility] [address] Department [employer] [place], [place] [phone] * POCT glucose (06/23/2020 4:32 PM CDT) [facility] Glucose, POC 112 70 - 140 mg/dL [facility] Comment: For Glucose values <35 mg/dl when Hematocrit is >60 mg/dl,the test may not accurately detect significant hypoglycemia,and testing in the Laboratory should be considered if clinically indicated. Blood specimen (specimen) 06/23/2020 4:32 PM CDT 06/23/2020 4:32 PM CDT Summer Anguiano MD LAB POCT ORDERABLES - DEVIC E Final Result Performing Organization Address [facility] de Phone Number [facility] [address] Department [employer] [place] [address] * (ABNORMAL) POCT glucose (06/23/2020 11:32 AM CDT) [facility] Glucose, POC 180(H) 70 - 140 mg/dL [facility] Comment: For Glucose values <35 mg/dl when Hematocrit is >60 mg/dl,the test may not accurately detect significant hypoglycemia,and testing in the Laboratory should be considered if clinically indicated. Blood specimen (specimen) 06/23/2020 11:32 AM CDT 06/23/2020 11:32 AM CDT Summer Anguiano MD LAB POCT ORDERABLES - DEVIC E Final Result Performing Organization Address [facility] Co de Phone Number [facility] [address] Department [employer] [place], [place] [phone] * CBC with differential - Add on lab test (06/23/2020 8:06 AM CDT) [facility] Acceptable Yes [facility] Blood specimen (specimen) 06/23/2020 8:06 AM CDT 06/23/2020 8:07 AM CDT Narrative [facility] - 06/23/2020 8:07 AM CDT Name of Test->CBC with differential Summer Anguiano MD LAB BLOOD ORDERABLES Final Result Performing Organization Address [facility] Co de Phone Number [facility] [address] Department of Laboratories [place], [place] [id number] * POCT glucose (06/23/2020 6:06 AM CDT) Glucose, POC 76 70 - 140 mg/dL [facility] Comment: For Glucose values <35 mg/dl when Hematocrit is >60 mg/dl,the test may not accurately detect significant hypoglycemia,and testing in the Laboratory should be considered if clinically indicated. Blood specimen (specimen) 06/23/2020 6:06 AM CDT 06/23/2020 6:06 AM CDT us Summer Anguiano MD LAB POCT ORDERABLES - DEVIC E Final Result Performing Organization Address [facility] de Phone Number [facility] [address] Department of Laboratories [place], [place] [phone] * (ABNORMAL) Differential, auto (06/23/2020 6:01 AM CDT) Neutrophil abs 9.3(H) 1.7 - 6.5 K/cumm [facility] Imm gran abs 0.5(H) 0.0 - 0.1 K/cumm [facility] Lymphocyte abs 2.2 0.8 - 3.3 K/cumm [facility] Monocyte abs 0.5 0.2 - 0.8 K/cumm [facility] Eosinophil abs 0.3 0.0 - 0.5 K/cumm [facility] Basophil abs 0.1 0.0 - 0.1 K/cumm [facility] Neutrophil pct 72.5 % [facility] Comment: Interpretive Data Percent cell count reference ranges are not reported, since discordance with absolute values may lead to misinterpretation of CBC data. Current Interpretive Data was last revised on 2017. Imm gran pct 3.8 % [facility] Comment: Interpretive Data Percent cell count reference ranges are not reported, since discordance with absolute values may lead to misinterpretation of CBC data. Current Interpretive Data was last revised on 2017. Lymphocyte pct 16.9 % [facility] Comment: Interpretive Data Percent cell count reference ranges are not reported, since discordance with absolute values may lead to misinterpretation of CBC data. Current Interpretive Data was last revised on 2017. Monocyte pct 4.1 % [facility] Comment: Interpretive Data Percent cell count reference ranges are not reported, since discordance with absolute values may lead to misinterpretation of CBC data. Current Interpretive Data was last revised on 2017. Eosinophil pct 2.2 % [facility] Comment: Interpretive Data Percent cell count reference ranges are not reported, since discordance with absolute values may lead to misinterpretation of CBC data. Current Interpretive Data was last revised on 2017. Basophil pct 0.5 % [facility] Comment: Interpretive Data Percent cell count reference ranges are not reported, since discordance with absolute values may lead to misinterpretation of CBC data. Current Interpretive Data was last revised on 2017. Blood specimen (specimen) 06/23/2020 6:01 AM CDT 06/23/2020 8:04 AM CDT us Summer Anguiano MD LAB BLOOD ORDERABLES Final Result [facility] [address] Department [place] [address] * (ABNORMAL) CBC with auto differential (06/23/2020 6:01 AM CDT) WBC 12.8(H) 3.8 - 9.9 K/cumm [facility] Hgb 7.2(L) 11.9 - 15.5 g/dL [facility] Hct 21.2(L) 35.6 - 45.5 % [facility] Plt 208 150 - 400 K/cumm [facility] MPV 10.2 9.1 - 12.3 fL [facility] RBC 2.25(L) 3.90 - 5.20 M/cumm [facility] MCV 94.2 81.3 - 96.4 fL [facility] MCH 32.0 27.1 - 33.3 pg [facility] MCHC 34.0 32.3 - 35.7 g/dL [facility] RDW CV 16.3(H) 11.1 - 14.9 % [facility] RDW SD 55.0(H) 35.7 - 48.1 fL [facility] NRBC abs 0.02(H) 0.00 - 0.01 K/cumm [facility] Blood specimen (specimen) 06/23/2020 6:01 AM CDT 06/23/2020 8:04 AM CDT Narrative [facility] - 06/23/2020 8:09 AM CDT added to blood in lab us Summer Anguiano MD LAB BLOOD ORDERABLES Final Result Performing Organization Address [facility]/ZIP Co de Phone Number [facility] [address] [place] [address] * (ABNORMAL) Hemoglobin and hematocrit (06/23/2020 6:01 AM CDT) [facility] Hgb 7.3(L) 11.9 - 15.5 g/dL [facility] Hct 21.5(L) 35.6 - 45.5 % [facility] Blood specimen (specimen) 06/23/2020 6:01 AM CDT 06/23/2020 6:01 AM CDT us Harlan Salamanca MD LAB BLOOD ORDERABLES Final R esult Performing Organization Address City/[facility]/ZIP Co de Phone Number [facility] [address] Department of [employer] [place] [address] * (ABNORMAL) Hemoglobin and hematocrit (06/23/2020 12:12 AM CDT) Hgb 7.0(L) 11.9 - 15.5 g/dL [facility] Hct 20.6(L) 35.6 - 45.5 % [facility] Blood specimen (specimen) 06/23/2020 12:12 AM CDT 06/23/2020 12:12 AM CDT Harlan Salamanca MD LAB BLOOD ORDERABLES Final R esult Performing Organization Address [facility] Co de Phone Number [facility] [address] [facility] [employer] [place] [address] * POCT glucose (06/22/2020 8:12 PM CDT) [facility] Glucose, POC 90 70 - 140 mg/dL [facility] Comment: For Glucose values <35 mg/dl when Hematocrit is >60 mg/dl,the test may not accurately detect significant hypoglycemia,and testing in the Laboratory should be considered if clinically indicated. Blood specimen (specimen) 06/22/2020 8:12 PM CDT 06/22/2020 8:12 PM CDT Result [facility] Summer Anguiano MD LAB POCT ORDERABLES - DEVIC E Final Result Performing Organization Address [facility] Co de Phone Number [facility] [address] Department Team [employer] [place] [address] * (ABNORMAL) Hemoglobin and hematocrit (06/22/2020 8:12 PM CDT) Hgb 7.0(L) 11.9 - 15.5 g/dL [facility] Hct 20.6(L) 35.6 - 45.5 % [facility] Blood specimen (specimen) 06/22/2020 8:12 PM CDT 06/22/2020 8:28 PM CDT Harlan Salamanca MD LAB BLOOD ORDERABLES Final R esult Performing Organization Address [facility]/ZIP Co de Phone Number [facility] [address] [facility] Team [employer] [place], [place] [id number] * POCT glucose (06/22/2020 6:42 PM CDT) Glucose, POC 83 70 - 140 mg/dL [facility] Comment: For Glucose values <35 mg/dl when Hematocrit is >60 mg/dl,the test may not accurately detect significant hypoglycemia,and testing in the Laboratory should be considered if clinically indicated. Blood specimen (specimen) 06/22/2020 6:42 PM CDT 06/22/2020 6:42 PM CDT us Summer Anguiano MD LAB POCT ORDERABLES - DEVIC E Final Result Performing Organization Address [facility] Co de Phone Number [facility] [address] [facility] Team [employer] [place], [place] [phone] * POCT glucose (06/22/2020 1:08 PM CDT) Glucose, POC 89 70 - 140 mg/dL [facility] Comment: For Glucose values <35 mg/dl when Hematocrit is >60 mg/dl,the test may not accurately detect significant hypoglycemia,and testing in the Laboratory should be considered if clinically indicated. Blood specimen (specimen) 06/22/2020 1:08 PM CDT 06/22/2020 1:08 PM CDT us Harlan Salamanca MD LAB POCT ORDERABLES - DEVICE Final Result Performing Organization Address [facility] Co de Phone Number [facility] [address] [facility] Team [employer] [place], [place] [phone] * (ABNORMAL) Hemoglobin and hematocrit (06/22/2020 12:33 PM CDT) Hgb 7.1(L) 11.9 - 15.5 g/dL [facility] Hct 20.8(L) 35.6 - 45.5 % [facility] Blood specimen (specimen) 06/22/2020 12:33 PM CDT 06/22/2020 12:48 PM CDT us Summer Anguiano MD LAB BLOOD ORDERABLES Final Result Performing Organization Address [facility] Co de Phone Number [facility] [address] [facility] [place] [place], [place] [phone] * POCT glucose (06/22/2020 9:07 AM CDT) Glucose, POC 79 70 - 140 mg/dL [facility] Comment: For Glucose values <35 mg/dl when Hematocrit is >60 mg/dl,the test may not accurately detect significant hypoglycemia,and testing in the Laboratory should be considered if clinically indicated. Blood specimen (specimen) 06/22/2020 9:07 AM CDT 06/22/2020 9:07 AM CDT us Harlan Salamanca MD LAB POCT ORDERABLES - DEVICE Final Result Performing Organization Address [facility] de Phone Number [facility] [address] [facility] [place] [address] * eGFR (06/22/2020 3:52 AM CDT) eGFR 93 mL/min/1.7 3 m2 [facility] Comment: Interpretive Data Reference Interval Normal ?>/= 90 mL/min/1.73m2 Mildly decreased* ? 60 - 89 mL/min/1.73m2 Mildly to moderately decreased ?45 - 59 mL/min/1.73m2 Moderately to severely decreased ??30 - 44 mL/min/1.73m2 Severely decreased ?15 - 29 mL/min/1.73m2 Kidney Failure ?< 15 ??mL/min/1.73m2 *Relative to young adult level Estimated glomerular filtration rate is determined by the CKD-EPI equation recommended by the National Kidney Foundation (KDIGO 2012 Clinical Practice Guideline for the Evaluation and Management of Chronic Kidney Disease. Kidney Intnl Suppl Mar 2012;3:1). The CKD-EPI equation should not be used for patients with unstable renal function and has not been validated in children and those over 70. Current interpretive data was last reviewed 2020 Blood specimen (specimen) 06/22/2020 3:52 AM CDT 06/22/2020 3:57 AM CDT us Spenser Ascencio MD LAB BLOOD ORDERABLES Final R esult [facility] [address] [place] [address] * (ABNORMAL) Differential, auto (06/22/2020 3:52 AM CDT) Neutrophil abs 6.3 1.7 - 6.5 K/cumm [facility] Imm gran abs 0.4(H) 0.0 - 0.1 K/cumm [facility] Lymphocyte abs 1.5 0.8 - 3.3 K/cumm [facility] Monocyte abs 0.4 0.2 - 0.8 K/cumm [facility] Eosinophil abs 0.1 0.0 - 0.5 K/cumm [facility] Basophil abs 0.0 0.0 - 0.1 K/cumm [facility] Neutrophil pct 71.7 % [facility] Comment: Interpretive Data Percent cell count reference ranges are not reported, since discordance with absolute values may lead to misinterpretation of CBC data. Current Interpretive Data was last revised on 2017. Imm gran pct 4.8 % [facility] Comment: Interpretive Data Percent cell count reference ranges are not reported, since discordance with absolute values may lead to misinterpretation of CBC data. Current Interpretive Data was last revised on 2017. Lymphocyte pct 17.0 % [facility] Comment: Interpretive Data Percent cell count reference ranges are not reported, since discordance with absolute values may lead to misinterpretation of CBC data. Current Interpretive Data was last revised on 2017. Monocyte pct 4.6 % [facility] Comment: Interpretive Data Percent cell count reference ranges are not reported, since discordance with absolute values may lead to misinterpretation of CBC data. Current Interpretive Data was last revised on 2017. Eosinophil pct 1.4 % [facility] Comment: Interpretive Data Percent cell count reference ranges are not reported, since discordance with absolute values may lead to misinterpretation of CBC data. Current Interpretive Data was last revised on 2017. Basophil pct 0.5 % [facility] Comment: Interpretive Data Percent cell count reference ranges are not reported, since discordance with absolute values may lead to misinterpretation of CBC data. Current Interpretive Data was last revised on 2017. Blood specimen (specimen) 06/22/2020 3:52 AM CDT 06/22/2020 3:57 AM CDT us Summer Anguiano MD LAB BLOOD ORDERABLES Final Result [facility] [address] Department of Laboratories [place], [place] [phone] * Renal function panel (06/22/2020 3:52 AM CDT) Sodium 137 135 - 145 mmol/L [facility] Potassium, pl 3.7 3.3 - 4.9 mmol/L [facility] Chloride 97 97 - 110 mmol/L [facility] CO2 29 22 - 32 mmol/L [facility] Anion gap 11 2 - 15 mmol/L [facility] BUN 18 8 - 25 mg/dL [facility] Creatinine 0.65 0.60 - 1.10 mg/dL [facility] Glucose 102 70 - 199 mg/dL [facility] Comment: Interpretive Data Fasting glucose >/= 126 mg/dl is diagnostic for diabetes. ?? Fasting is defined as no caloric intake for at least 8 hours. Fasting glucose between 100 mg/dl to 125 mg/dl is diagnostic of prediabetes. In a patient with classic symptoms of hyperglycemia or hyperglycemic crisis, a random glucose >/= 200 mg/dl is diagnostic for diabetes. In the absence of unequivocal hyperglycemia, results should be confirmed by repeat testing. The classification and Diagnosis of Diabetes Diabetes Care 2017;40 (Suppl. 1):S11. Current interpretive data was last revised 2017. Calcium 8.8 8.5 - 10.3 mg/dL [facility] Phosphorus, pl 2.6 2.3 - 4.5 mg/dL [facility] Albumin 3.6 3.5 - 5.0 g/dL [facility] Blood specimen (specimen) 06/22/2020 3:52 AM CDT 06/22/2020 3:57 AM CDT us Spenser Ascencio MD LAB BLOOD ORDERABLES Final R esult [facility] [address] [place] [address] * (ABNORMAL) CBC with auto differential (06/22/2020 3:52 AM CDT) WBC 8.8 3.8 - 9.9 K/cumm [facility] Hgb 8.5(L) 11.9 - 15.5 g/dL [facility] Hct 25.1(L) 35.6 - 45.5 % [facility] Plt 195 150 - 400 K/cumm [facility] MPV 9.7 9.1 - 12.3 fL [facility] RBC 2.78(L) 3.90 - 5.20 M/cumm [facility] MCV 90.3 81.3 - 96.4 fL [facility] MCH 30.6 27.1 - 33.3 pg [facility] MCHC 33.9 32.3 - 35.7 g/dL [facility] RDW CV 15.8(H) 11.1 - 14.9 % [facility] RDW SD 51.8(H) 35.7 - 48.1 fL [facility] NRBC abs 0.00 0.00 - 0.01 K/cumm [facility] Blood specimen (specimen) 06/22/2020 3:52 AM CDT 06/22/2020 3:57 AM CDT us Summer Anguiano MD LAB BLOOD ORDERABLES Final Result Performing Organization Address [facility] de Phone Number [facility] [address] [place] [address] * eGFR (06/21/2020 10:21 PM CDT) eGFR 93 mL/min/1.7 3 m2 [facility] Comment: Interpretive Data Reference Interval Normal ?>/= 90 mL/min/1.73m2 Mildly decreased* ? 60 - 89 mL/min/1.73m2 Mildly to moderately decreased ?45 - 59 mL/min/1.73m2 Moderately to severely decreased ??30 - 44 mL/min/1.73m2 Severely decreased ?15 - 29 mL/min/1.73m2 Kidney Failure ?< 15 ??mL/min/1.73m2 *Relative to young adult level Estimated glomerular filtration rate is determined by the CKD-EPI equation recommended by the National Kidney Foundation (KDIGO 2012 Clinical Practice Guideline for the Evaluation and Management of Chronic Kidney Disease. Kidney Intnl Suppl Mar 2012;3:1). The CKD-EPI equation should not be used for patients with unstable renal function and has not been validated in children and those over 70. Current interpretive data was last reviewed 2020 Blood specimen (specimen) 06/21/2020 10:21 PM CDT 06/21/2020 10:31 PM CDT us Spenser Ascencio MD LAB BLOOD ORDERABLES Final R esult Performing Organization Address [facility] Co de Phone Number [facility] [address] Department [place] [address] * (ABNORMAL) Renal function panel (06/21/2020 10:21 PM CDT) [facility] Sodium 137 135 - 145 mmol/L [facility] Potassium, pl 4.0 3.3 - 4.9 mmol/L [facility] Chloride 98 97 - 110 mmol/L [facility] CO2 33(H) 22 - 32 mmol/L [facility] Anion gap 6 2 - 15 mmol/L [facility] BUN 19 8 - 25 mg/dL [facility] Creatinine 0.65 0.60 - 1.10 mg/dL [facility] Glucose 162 70 - 199 mg/dL [facility] Comment: Interpretive Data Fasting glucose >/= 126 mg/dl is diagnostic for diabetes. ?? Fasting is defined as no caloric intake for at least 8 hours. Fasting glucose between 100 mg/dl to 125 mg/dl is diagnostic of prediabetes. In a patient with classic symptoms of hyperglycemia or hyperglycemic crisis, a random glucose >/= 200 mg/dl is diagnostic for diabetes. In the absence of unequivocal hyperglycemia, results should be confirmed by repeat testing. The classification and Diagnosis of Diabetes Diabetes Care 2017;40 (Suppl. 1):S11. Current interpretive data was last revised 2017. Calcium 8.9 8.5 - 10.3 mg/dL [facility] Phosphorus, pl 2.9 2.3 - 4.5 mg/dL [facility] Albumin 3.7 3.5 - 5.0 g/dL [facility] Blood specimen (specimen) 06/21/2020 10:21 PM CDT 06/21/2020 10:31 PM CDT Spenser Ascencio MD LAB BLOOD ORDERABLES Final R esult [facility] [address] Department [place] [address] * Lactate (06/21/2020 10:21 PM CDT) [facility] Lactate 1.1 0.7 - 2.0 mmol/L [facility] Blood specimen (specimen) 06/21/2020 10:21 PM CDT 06/21/2020 10:27 PM CDT Spenser Ascencio MD LAB BLOOD ORDERABLES Final R esult Performing Organization Address [facility] Co de Phone Number [facility] [address] [employer] [place], [place] [phone] * (ABNORMAL) CBC without differential (06/21/2020 10:21 PM CDT) [facility] WBC 9.9 3.8 - 9.9 K/cumm [facility] Hgb 8.7(L) 11.9 - 15.5 g/dL [facility] Hct 25.5(L) 35.6 - 45.5 % [facility] Plt 176 150 - 400 K/cumm [facility] MPV 9.9 9.1 - 12.3 fL [facility] RBC 2.80(L) 3.90 - 5.20 M/cumm [facility] MCV 91.1 81.3 - 96.4 fL [facility] MCH 31.1 27.1 - 33.3 pg [facility] MCHC 34.1 32.3 - 35.7 g/dL [facility] RDW CV 15.8(H) 11.1 - 14.9 % [facility] RDW SD 52.6(H) 35.7 - 48.1 fL [facility] NRBC abs 0.00 0.00 - 0.01 K/cumm [facility] Blood specimen (specimen) 06/21/2020 10:21 PM CDT 06/21/2020 10:31 PM CDT Spenser Ascencio MD LAB BLOOD ORDERABLES Final R esult Performing Organization Address [facility]/ZIP Co de Phone Number [facility] [address] [facility] [place], [place] [phone] * (ABNORMAL) POCT glucose (06/21/2020 9:23 PM CDT) Glucose, POC 196(H) 70 - 140 mg/dL [facility] Comment: For Glucose values <35 mg/dl when Hematocrit is >60 mg/dl,the test may not accurately detect significant hypoglycemia,and testing in the Laboratory should be considered if clinically indicated. Blood specimen (specimen) 06/21/2020 9:23 PM CDT 06/21/2020 9:23 PM CDT us Summer Anguiano MD LAB POCT ORDERABLES - DEVIC E Final Result [facility] [address] [place] [address] * CT Abdomen Pelvis W Contrast (06/21/2020 9:17 PM CDT) Anatomical Region Laterality Modality Body N/A Computed Tomogra phy 06/22/2020 7:13 AM CDT Impressions 06/22/2020 7:[address] findings as discussed which are highly consistent with interval development of gastric ischemia at the fundus/cardia with portal venous gas and trace amounts of extraluminal air along the greater curvature of the stomach. 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 Critical findings communicated by [employer] to Dr. Ascencio at 2157 hours. 2. Large amount of stool throughout the colon with a large stool ball at the rectum consistent with constipation/fecal impaction. 3. Large pericardial effusion again noted. 4. Cholelithiasis. 5. Bladder wall thickening which could reflect a combination of incomplete distention and cystitis as discussed. A Kaplan catheter is in place. 6. Status post ventral herniorrhaphy. An apparent adjacent seroma is again seen with an anterior abdominal/pelvic subcutaneous fat. 7. Extensive body wall edema. The initial interpretation of this study was provided by a ad Radiologist. There is no significant discrepancy. Electronically signed by: Tomi Urena M.D. Narrative 06/22/2020 7:[address] of the abdomen and pelvis HISTORY: Vomiting brownish material. Anemia. Abdominal distention. TECHNIQUE: Transaxial helical imaging was performed through the abdomen and pelvis during intravenous administration of 95 mL of Optiray 350. 3 mm images were reconstructed. FINDINGS: Comparison is made to a recent CT angiogram of the abdomen, pelvis, and lower extremities performed on 06/17/2020. There is new portal venous gas noted on the current examination. Pneumatosis has developed in the gastric fundus and cardia along with edematous bowel wall thickening in this region. There are some apparent tiny extraluminal air bubbles along the greater curvature of the stomach best appreciated in images 38 and 39, series 3. The stomach is not distended with a common initial of fluid and air. The findings are highly suspicious for gastric ischemia. Note is made of an apparent moderate stenosis at the origin of the celiac axis. There is no other evidence of pneumatosis/bowel ischemia. There is a large amount of stool seen throughout the colon including a large stool ball at the rectum consistent with constipation/fecal impaction. A large pericardial effusion is again noted. Tiny pleural effusions are present. Dependent atelectasis is present at the lung bases. Aside from the portal venous gas, the liver is unremarkable in appearance. There are multiple tiny calcified gallstones seen in the dependent portion of the gallbladder. The spleen, adrenal glands, pancreas, and kidneys are unremarkable. There are no enlarged retroperitoneal or mesenteric lymph nodes evident. A Kaplan catheter is present in the bladder. Bladder wall thickening at least in part reflects incomplete distention. However, there is somewhat prominent enhancement of the bladder mucosa suggesting cystitis. The uterine endometrium appears mildly prominent for age. Changes of a ventral herniorrhaphy are again noted. There is a persistent adjacent stroma seen within anterior abdominal/pelvic subcutaneous fat measuring about 11 cm in maximal diameter, unchanged. There are no suspicious osseous lesions. Extensive edematous infiltration of body wall fat is noted. Procedure Note Tomi Urena MD - 06/22/2020 CT of the abdomen and pelvis HISTORY: Vomiting brownish material. Anemia. Abdominal distention. TECHNIQUE: Transaxial helical imaging was performed through the abdomen and pelvis during intravenous administration of 95 mL of Optiray 350. 3 mm images were reconstructed. FINDINGS: Comparison is made to a recent CT angiogram of the abdomen, pelvis, and lower extremities performed on 06/17/2020. There is new portal venous gas noted on the current examination. Pneumatosis has developed in the gastric fundus and cardia along with edematous bowel wall thickening in this region. There are some apparent tiny extraluminal air bubbles along the greater curvature of the stomach best appreciated in images 38 and 39, series 3. The stomach is not distended with a common initial of fluid and air. The findings are highly suspicious for gastric ischemia. Note is made of an apparent moderate stenosis at the origin of the celiac axis. There is no other evidence of pneumatosis/bowel ischemia. There is a large amount of stool seen throughout the colon including a large stool ball at the rectum consistent with constipation/fecal impaction. A large pericardial effusion is again noted. Tiny pleural effusions are present. Dependent atelectasis is present at the lung bases. Aside from the portal venous gas, the liver is unremarkable in appearance. There are multiple tiny calcified gallstones seen in the dependent portion of the gallbladder. The spleen, adrenal glands, pancreas, and kidneys are unremarkable. There are no enlarged retroperitoneal or mesenteric lymph nodes evident. A Kaplan catheter is present in the bladder. Bladder wall thickening at least in part reflects incomplete distention. However, there is somewhat prominent enhancement of the bladder mucosa suggesting cystitis. The uterine endometrium appears mildly prominent for age. Changes of a ventral herniorrhaphy are again noted. There is a persistent adjacent stroma seen within anterior abdominal/pelvic subcutaneous fat measuring about 11 cm in maximal diameter, unchanged. There are no suspicious osseous lesions. Extensive edematous infiltration of body wall fat is noted. IMPRESSION: 1. CT findings as discussed which are highly consistent with interval development of gastric ischemia at the fundus/cardia with portal venous gas and trace amounts of extraluminal air along the greater curvature of the stomach. 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 Critical findings communicated by [facility] to Dr. Ascencio at 2157 hours. 2. Large amount of stool throughout the colon with a large stool ball at the rectum consistent with constipation/fecal impaction. 3. Large pericardial effusion again noted. 4. Cholelithiasis. 5. Bladder wall thickening which could reflect a combination of incomplete distention and cystitis as discussed. A Kaplan catheter is in place. 6. Status post ventral herniorrhaphy. An apparent adjacent seroma is again seen with an anterior abdominal/pelvic subcutaneous fat. 7. Extensive body wall edema. The initial interpretation of this study was provided by a ad Radiologist. There is no significant discrepancy. Electronically signed by: Tomi Urena M.D. Spenser Ascencio MD IMG CT PROCEDURES Final Resu lt * (ABNORMAL) Hemoglobin and hematocrit (06/21/2020 7:08 PM CDT) Hgb 8.2(L) 11.9 - 15.5 g/dL [facility] Hct 24.2(L) 35.6 - 45.5 % [facility] Blood specimen (specimen) 06/21/2020 7:08 PM CDT 06/21/2020 7:08 PM CDT Result [facility] Summer Anguiano MD LAB BLOOD ORDERABLES Final Result Performing Organization Address [facility] Co de Phone Number [facility] [address] [employer] [place], [place] [phone] * POCT glucose (06/21/2020 4:35 PM CDT) Glucose, POC 136 70 - 140 mg/dL [facility] Comment: For Glucose values <35 mg/dl when Hematocrit is >60 mg/dl,the test may not accurately detect significant hypoglycemia,and testing in the Laboratory should be considered if clinically indicated. Glucose comment 1 Follow Protocol [facility] Blood specimen (specimen) 06/21/2020 4:35 PM CDT 06/21/2020 4:35 PM CDT Result [facility] Summer Anguiano MD LAB POCT ORDERABLES - DEVIC E Final Result Performing Organization Address [facility]/ZIP Co de Phone Number [facility] [address] [facility] [place], [place] [phone] * POCT glucose (06/21/2020 1:36 PM CDT) Glucose, POC 111 70 - 140 mg/dL [facility] Comment: For Glucose values <35 mg/dl when Hematocrit is >60 mg/dl,the test may not accurately detect significant hypoglycemia,and testing in the Laboratory should be considered if clinically indicated. Blood specimen (specimen) 06/21/2020 1:36 PM CDT 06/21/2020 1:36 PM CDT us Summer Anguiano MD LAB POCT ORDERABLES - DEVIC E Final Result Performing Organization Address [facility] Co de Phone Number [facility] [address] [facility] [place] [address] * Transfuse RBC (06/21/2020 12:41 PM CDT) Blood specimen (specimen) Preeti Mays NP BLOOD TRANSFUSIO N ORDERABLES Edited Result - Final Performing Organization Address [facility] de Phone Number [facility] [address] [place] [address] * Transfuse RBC: 1 Units (06/21/2020 12:41 PM CDT) Blood specimen (specimen) Preeti Mays NP BLOOD TRANSFUSIO N ORDERABLES Edited Result - Final * Type and screen (06/21/2020 6:56 AM CDT) ABO Rh O Positive [facility] Veronica, indirect Negative [facility] Blood specimen (specimen) 06/21/2020 6:56 AM CDT 06/21/2020 7:02 AM CDT Narrative [facility] - 06/21/2020 7:40 AM CDT Has the patient had Daratumumab or Isatuximab in the past 6 months?->Unknown us Preeti Mays NP LAB BLOOD BANK T EST ORDERABLES Final Result Performing Organization Address [facility] Co de Phone Number [facility] [address] Department of [employer] [place] [address] * Prepare RBC: 1 Units (06/21/2020 6:41 AM CDT) [facility] Product code [id number] [facility] Unit Number [id number] [facility] Product Blood Type OPOS [facility] Dispense Status PRESUMED TRANSFUSED [facility] Blood specimen (specimen) 06/21/2020 6:41 AM CDT Narrative [facility] - 06/22/2020 10:15 AM CDT Are special requirements needed? (all products are leukoreduced)->No Date required:-20200621 LRRBC # of [id number] Reasons:-Hgb <7 g/dL} us Preeti Mays NP BLOOD BANK PRODU CT ORDERABLES Final Result Performing Organization Address [facility] de Phone Number [facility] [address] Department [place] [address] * POCT glucose (06/21/2020 5:59 AM CDT) [facility] Glucose, POC 123 70 - 140 mg/dL [facility] Comment: For Glucose values <35 mg/dl when Hematocrit is >60 mg/dl,the test may not accurately detect significant hypoglycemia,and testing in the Laboratory should be considered if clinically indicated. Blood specimen (specimen) 06/21/2020 5:59 AM CDT 06/21/2020 5:59 AM CDT us Summer Anguiano MD LAB POCT ORDERABLES - DEVIC E Final Result Performing Organization Address [facility] Co de Phone Number [facility] [address] Department [place] [address] * Differential, auto (06/21/2020 5:58 AM CDT) [facility] Neutrophil abs 4.7 1.7 - 6.5 K/cumm [facility] Imm gran abs 0.1 0.0 - 0.1 K/cumm [facility] Lymphocyte abs 1.5 0.8 - 3.3 K/cumm [facility] Monocyte abs 0.4 0.2 - 0.8 K/cumm [facility] Eosinophil abs 0.2 0.0 - 0.5 K/cumm [facility] Basophil abs 0.0 0.0 - 0.1 K/cumm [facility] Neutrophil pct 68.2 % [facility] Comment: Interpretive Data Percent cell count reference ranges are not reported, since discordance with absolute values may lead to misinterpretation of CBC data. Current Interpretive Data was last revised on 2017. Imm gran pct 1.4 % [facility] Comment: Interpretive Data Percent cell count reference ranges are not reported, since discordance with absolute values may lead to misinterpretation of CBC data. Current Interpretive Data was last revised on 2017. Lymphocyte pct 21.7 % [facility] Comment: Interpretive Data Percent cell count reference ranges are not reported, since discordance with absolute values may lead to misinterpretation of CBC data. Current Interpretive Data was last revised on 2017. Monocyte pct 5.8 % [facility] Comment: Interpretive Data Percent cell count reference ranges are not reported, since discordance with absolute values may lead to misinterpretation of CBC data. Current Interpretive Data was last revised on 2017. Eosinophil pct 2.5 % [facility] Comment: Interpretive Data Percent cell count reference ranges are not reported, since discordance with absolute values may lead to misinterpretation of CBC data. Current Interpretive Data was last revised on 2017. Basophil pct 0.4 % [facility] Comment: Interpretive Data Percent cell count reference ranges are not reported, since discordance with absolute values may lead to misinterpretation of CBC data. Current Interpretive Data was last revised on 2017. Blood specimen (specimen) 06/21/2020 5:58 AM CDT 06/21/2020 6:12 AM CDT Summer Anguiano MD LAB BLOOD ORDERABLES Final Result [facility] [address] Department of [employer] [place] [address] * (ABNORMAL) CBC with auto differential (06/21/2020 5:58 AM CDT) [facility] WBC 6.9 3.8 - 9.9 K/cumm [facility] Hgb 6.1(C) 11.9 - 15.5 g/dL [facility] Comment:Critical result call ed to and read back by CARLOS TUBBS (RN) on 06 21 2020 at 0631 to Sylvain Lerma. Hct 18.8(L) 35.6 - 45.5 % [facility] Plt 191 150 - 400 K/cumm [facility] MPV 10.0 9.1 - 12.3 fL [facility] RBC 2.00(L) 3.90 - 5.20 M/cumm [facility] MCV 94.0 81.3 - 96.4 fL [facility] MCH 30.5 27.1 - 33.3 pg [facility] MCHC 32.4 32.3 - 35.7 g/dL [facility] RDW CV 15.0(H) 11.1 - 14.9 % [facility] RDW SD 51.3(H) 35.7 - 48.1 fL [facility] NRBC abs 0.00 0.00 - 0.01 K/cumm [facility] Blood specimen (specimen) 06/21/2020 5:58 AM CDT 06/21/2020 6:12 AM CDT us Summer Anguiano MD LAB BLOOD ORDERABLES Final Result [facility] [address] Department [place] [address] * (ABNORMAL) POCT glucose (06/20/2020 8:21 PM CDT) [facility] Glucose, POC 150(H) 70 - 140 mg/dL [facility] Comment: For Glucose values <35 mg/dl when Hematocrit is >60 mg/dl,the test may not accurately detect significant hypoglycemia,and testing in the Laboratory should be considered if clinically indicated. Blood specimen (specimen) 06/20/2020 8:21 PM CDT 06/20/2020 8:21 PM CDT Summer Anguiano MD LAB POCT ORDERABLES - DEVIC E Final Result Performing Organization Address [facility] de Phone Number [facility] [address] [facility] [employer] [place] [address] * (ABNORMAL) POCT glucose (06/20/2020 4:46 PM CDT) Glucose, POC 147(H) 70 - 140 mg/dL [facility] Comment: For Glucose values <35 mg/dl when Hematocrit is >60 mg/dl,the test may not accurately detect significant hypoglycemia,and testing in the Laboratory should be considered if clinically indicated. Glucose comment 1 Follow Protocol [facility] Blood specimen (specimen) 06/20/2020 4:46 PM CDT 06/20/2020 4:46 PM CDT Summer Anguiano MD LAB POCT ORDERABLES - DEVIC E Final Result Performing Organization Address [facility] de Phone Number [facility] [address] [facility] [employer] [place] [address] * (ABNORMAL) POCT glucose (06/20/2020 11:27 AM CDT) Glucose, POC 154(H) 70 - 140 mg/dL [facility] Comment: For Glucose values <35 mg/dl when Hematocrit is >60 mg/dl,the test may not accurately detect significant hypoglycemia,and testing in the Laboratory should be considered if clinically indicated. Glucose comment 1 Follow Protocol [facility] Blood specimen (specimen) 06/20/2020 11:27 AM CDT 06/20/2020 11:27 AM CDT Summer Anguiano MD LAB POCT ORDERABLES - DEVIC E Final Result Performing Organization Address [facility]/ZIP Co de Phone Number [facility] [address] [facility] [employer] [place] [place] [address] * (ABNORMAL) POCT glucose (06/20/2020 6:36 AM CDT) Pathologist [facility] Glucose, POC 165(H) 70 - 140 mg/dL [facility] Comment: For Glucose values <35 mg/dl when Hematocrit is >60 mg/dl,the test may not accurately detect significant hypoglycemia,and testing in the Laboratory should be considered if clinically indicated. Blood specimen (specimen) 06/20/2020 6:36 AM CDT 06/20/2020 6:36 AM CDT Summer Anguiano MD LAB POCT ORDERABLES - DEVIC E Final Result Performing Organization Address [facility] Co de Phone Number [facility] [address] Department [place] [address] * (ABNORMAL) Differential, auto (06/20/2020 6:03 AM CDT) [facility] Neutrophil abs 7.0(H) 1.7 - 6.5 K/cumm [facility] Imm gran abs 0.1 0.0 - 0.1 K/cumm [facility] Lymphocyte abs 0.9 0.8 - 3.3 K/cumm [facility] Monocyte abs 0.3 0.2 - 0.8 K/cumm [facility] Eosinophil abs 0.0 0.0 - 0.5 K/cumm [facility] Basophil abs 0.0 0.0 - 0.1 K/cumm [facility] Neutrophil pct 84.2 % [facility] Comment: Interpretive Data Percent cell count reference ranges are not reported, since discordance with absolute values may lead to misinterpretation of CBC data. Current Interpretive Data was last revised on 2017. Imm gran pct 0.8 % [facility] Comment: Interpretive Data Percent cell count reference ranges are not reported, since discordance with absolute values may lead to misinterpretation of CBC data. Current Interpretive Data was last revised on 2017. Lymphocyte pct 10.7 % [facility] Comment: Interpretive Data Percent cell count reference ranges are not reported, since discordance with absolute values may lead to misinterpretation of CBC data. Current Interpretive Data was last revised on 2017. Monocyte pct 4.0 % [facility] Comment: Interpretive Data Percent cell count reference ranges are not reported, since discordance with absolute values may lead to misinterpretation of CBC data. Current Interpretive Data was last revised on 2017. Eosinophil pct 0.1 % [facility] Comment: Interpretive Data Percent cell count reference ranges are not reported, since discordance with absolute values may lead to misinterpretation of CBC data. Current Interpretive Data was last revised on 2017. Basophil pct 0.2 % [facility] Comment: Interpretive Data Percent cell count reference ranges are not reported, since discordance with absolute values may lead to misinterpretation of CBC data. Current Interpretive Data was last revised on 2017. Blood specimen (specimen) 06/20/2020 6:03 AM CDT 06/20/2020 6:48 AM CDT us Arley Peña MD LAB BLOOD ORDERABLES Final Resu lt [facility] [address] Department [place] [address] * (ABNORMAL) CBC with auto differential (06/20/2020 6:03 AM CDT) WBC 8.4 3.8 - 9.9 K/cumm [facility] Hgb 7.0(L) 11.9 - 15.5 g/dL [facility] Comment:Hemoglobin delta due to surgical procedure. Amputation yesterday Hct 20.6(L) 35.6 - 45.5 % [facility] Plt 182 150 - 400 K/cumm [facility] MPV 10.3 9.1 - 12.3 fL [facility] RBC 2.24(L) 3.90 - 5.20 M/cumm [facility] MCV 92.0 81.3 - 96.4 fL [facility] MCH 31.3 27.1 - 33.3 pg [facility] MCHC 34.0 32.3 - 35.7 g/dL [facility] RDW CV 14.7 11.1 - 14.9 % [facility] RDW SD 49.3(H) 35.7 - 48.1 fL [facility] NRBC abs 0.00 0.00 - 0.01 K/cumm [facility] Blood specimen (specimen) 06/20/2020 6:03 AM CDT 06/20/2020 6:48 AM CDT Arley Peña MD LAB BLOOD ORDERABLES Final Resu lt Performing Organization Address [facility]/ZIP Co de Phone Number [facility] [address] Department [employer] [place], [place] [id number] * (ABNORMAL) POCT glucose (06/19/2020 10:24 PM CDT) Glucose, POC 210(H) 70 - 140 mg/dL [facility] Comment: For Glucose values <35 mg/dl when Hematocrit is >60 mg/dl,the test may not accurately detect significant hypoglycemia,and testing in the Laboratory should be considered if clinically indicated. Blood specimen (specimen) 06/19/2020 10:24 PM CDT 06/19/2020 10:24 PM CDT Summer Anguiano MD LAB POCT ORDERABLES - DEVIC E Final Result Performing Organization Address [facility]/ZIP Co de Phone Number [facility] [address] Department [place] [place], [place] [id number] * POCT glucose (06/19/2020 8:03 PM CDT) Glucose, POC 82 70 - 140 mg/dL [facility] Comment: For Glucose values <35 mg/dl when Hematocrit is >60 mg/dl,the test may not accurately detect significant hypoglycemia,and testing in the Laboratory should be considered if clinically indicated. Blood specimen (specimen) 06/19/2020 8:03 PM CDT 06/19/2020 8:03 PM CDT us Summer Anguiano MD LAB POCT ORDERABLES - DEVIC E Final Result [facility] [place] [address] Department [place] [address] * Surgical pathology (06/19/2020 6:38 PM CDT) Tissue (Amputation non-tramatic) 06/19/2020 6:38 PM CDT Narrative PATHOLOGY [facility] - 07/03/2020 1:15 PM CDT [place] [id number] [place], [place] ??[address] Tele: ?? Marti Mueller MD - [employer] worker PATHOLOGY REPORT Patient Name: ??IRIS GIL Address: ??[address] [place] [address] ??[id number] Gender: ??F : ??1955 (Age: 65) Service: ??Medical Location: ??[facility], ?? Hospital #: ??[id number] Patient Type: ?? Inpatient Accession #: ? [id number] Taken: ? 06/19/2020 Received ? 06/22/2020 Reported: ? 07/03/2020 Physician(s): ? Dr. Arley Peña M.D. Zeke Puente MD DIAGNOSIS: Extremity, lower, left, above-knee amputation: ? -Bone, with focal minimal chronic inflammation -Skin, with parakeratosis, fibrosis, minimal inflammation, and reactive changes -Vessels, with calcified atherosclerotic plaque -Viable skin and soft tissue margin as07/03/2020 13:15 Examining Pathologist: Report Reviewed and Electronically Signed By ??Daniel Pool M.D. SPECIMEN TYPE: A: LEFT ABOVEKNEE AMPUTATION CLINICAL IMPRESSION AND HISTORY: Peripheral vascular disease. ??Per EMR - peripheral vascular disease left lower extremity, osteomyelitis of left heel. GROSS DESCRIPTION: Received wrapped in a biohazard bag without fixative and labeled Iris Gil and left above-knee amputation is an [id number] amputated left leg measures 54.3 cm (length), 19.3 cm (circumference of calf), and 19.3 x 6.6 cm (foot). ??The skin, soft tissue, and bone at the margin appear viable. ??There is a 5 x 2 cm, black-green area at the heel of the foot. ??The remainder of the skin is mottled purple-red. ?? Approximately 95 % of the popliteal artery, posterior artery, and anterior artery is stenosed by yellow plaque. ??Copy Cutter sections are submitted as follows: ??A1 - bone marrow from bony margin of resection; A2 - popliteal, anterior and posterior tibial vessels; A3 - black-green area at heel; A4-A5 - bone of heel deep to black-green area; A6 - skin and soft tissue at margin of resection. ??Cassettes A2, A4 and A5 are submitted for decalcification. [facility]/07/01/2020 13:59 ? [facility] MICROSCOPIC DESCRIPTION: Microscopic examination supports the above captioned diagnosis. ??Section submitted as bone marrow from bone resection margin appears unremarkable. Clerical Data Follows A; [id number], [id number] REPORT IMAGES AND/OR SCANNED DOCUMENTS ONLY VIEWABLE IN PDF FORMAT The immunohistochemical test(s) cited in this report, if any, was developed and its performance characteristics determined by [facility] Pathology Department. ??It has not been cleared or approved by the U.S. Food and Drug Administration. ??The FDA has determined that such clearance or approval is not necessary. ??This test is used for clinical purposes. ??It should not be regarded as investigational or for research. ??[facility] Laboratory is certified under the Clinical Laboratory Improvement Amendments of 1988 (CLIA) as qualified to perform high complexity testing. ??Immunostains were performed on formalin-fixed paraffin embedded tissue using a polymer diaminobenzidine chromogen detection system. Antibodies used may include clone SP1 (rabbit monoclonal, estrogen receptor), clone 1E2 (rabbit monoclonal progesterone receptor), Ki-67 (rabbit monoclonal, 30-9), and [id number] (rabbit polyclonal, c-kit). Arley Peña MD LAB PATHOLOGY ORDERABLES Final Result Performing Organization Address City/[facility]/ZIP Co de Phone Number PATHOLOGY [facility] Laboratory Receiving [address] [place] [address] * POCT glucose (06/19/2020 5:02 PM CDT) Glucose, POC 71 70 - 140 mg/dL [facility] Comment: For Glucose values <35 mg/dl when Hematocrit is >60 mg/dl,the test may not accurately detect significant hypoglycemia,and testing in the Laboratory should be considered if clinically indicated. Blood specimen (specimen) 06/19/2020 5:02 PM CDT 06/19/2020 5:02 PM CDT Result [facility] Summer Anguiano MD LAB POCT ORDERABLES - DEVIC E Final Result Performing Organization Address [facility] Co de Phone Number [facility] [address] [place] [address] * (ABNORMAL) POCT glucose (06/19/2020 4:54 PM CDT) Glucose, POC 65(L) 70 - 140 mg/dL [facility] Comment: For Glucose values <35 mg/dl when Hematocrit is >60 mg/dl,the test may not accurately detect significant hypoglycemia,and testing in the Laboratory should be considered if clinically indicated. Blood specimen (specimen) 06/19/2020 4:54 PM CDT 06/19/2020 4:54 PM CDT Result [facility] Summer Anguiano MD LAB POCT ORDERABLES - DEVIC E Final Result Performing Organization Address [facility]/ZIP Co de Phone Number [facility] [address] Department [employer] [place] [address] * Vancomycin level trough Please draw trough at this specific time. (06/19/2020 3:32 PM CDT) Pathologist [facility] Vancomycin trough 15.7 10.0 - 20.0 mcg/mL [facility] Comment: Interpretive Data ?Therapeutic Range: Uncomplicated skin and soft tissue infections: 10-20 mcg/mL All other infections: 15-20 mcg/mL Current Interpretive Data was last revised on 2020. Blood specimen (specimen) 06/19/2020 3:32 PM CDT 06/19/2020 3:32 PM CDT Narrative [facility] - 06/19/2020 3:59 PM CDT Please draw trough at this specific time. Summer Anguiano MD LAB BLOOD ORDERABLES Final Result Performing Organization Address [facility]/ZIP Co de Phone Number [facility] [address] Department [employer] [place] [address] * POCT glucose (06/19/2020 11:34 AM CDT) [facility] Glucose, POC 83 70 - 140 mg/dL [facility] Comment: For Glucose values <35 mg/dl when Hematocrit is >60 mg/dl,the test may not accurately detect significant hypoglycemia,and testing in the Laboratory should be considered if clinically indicated. Blood specimen (specimen) 06/19/2020 11:34 AM CDT 06/19/2020 11:34 AM CDT Summer Anguiano MD LAB POCT ORDERABLES - DEVIC E Final Result Performing Organization Address [facility]/ZIP Co de Phone Number [facility] [address] Department of [employer] [place] [address] * (ABNORMAL) Urinalysis, microscopic only (06/19/2020 8:14 AM CDT) WBC, ur 21-50(A) 0 - 5 /HPF [facility] RBC, ur 21-50(A) 0 - 2 /HPF [facility] Epithelial cells, squamous, ur 1-5 0 - 5 /HPF [facility] Bacteria, ur 4+(A) [facility] Yeast, ur 3+(A) [facility] Culture Reflex Comment Reflex to urine culture will be performed. [facility] Urine 06/19/2020 8:14 AM CDT 06/19/2020 8:14 AM CDT Tanisha Bundy MD LAB URINE ORDERABLES Final Result [facility] [address] [place] [address] * (ABNORMAL) Urinalysis reflex to microscopic and culture Urine (06/19/2020 8:14 AM CDT) Color, ur Yellow Yellow [facility] Clarity, ur Turbid(A) Clear [facility] Specific gravity, ur 1.015 1.010 - 1.025 [facility] pH, urine 6.0 [facility] Protein, ur ql 1+(A) Negative [facility] Glucose, ur ql Negative Negative [facility] Ketones, ur Negative Negative [facility] Bilirubin, ur Negative Negative [facility] Blood, ur 2+(A) Negative [facility] Urobilinogen, ur <2.0 <2.0 mg/dL [facility] Nitrite, ur Negative Negative [facility] Leukocyte esterase, ur 3+(A) Negative [facility] UA reflex comment Reflex to microscopic UA will be performed. [facility] Urine 06/19/2020 8:14 AM CDT 06/19/2020 8:14 AM CDT Narrative [facility] - 06/19/2020 9:09 AM CDT ?? Urine pH is affected by diet, medications, systemic acid-base disturbances, and renal tubular function. ??pH may affect urinary stone formation. ??For example, urine pH below 6.0 may help reduce the tendency for calcium phosphate stones and pH greater than 6.0 may reduce the tendency for uric acid stone formation. Source: [facility]. Last revised 03-23-2017 Tanisha Bundy MD LAB MICROBIOLOGY - GENERAL ORDERABLES Final Result Performing Organization Address [facility] Co de Phone Number [facility] [address] [place] [address] * (ABNORMAL) Urine culture Urine (06/19/2020 8:14 AM CDT) Report Final Report: Growth indicates contamination with gram-positive alana. (.) [facility] Organism GROWTH INDICATES CONTAMINATION WITH GRAM-POS ALANA [facility] Urine 06/19/2020 8:14 AM CDT 06/19/2020 9:17 AM CDT Narrative [facility] - 06/20/2020 9:41 AM CDT Urine culture reflexed based upon urinalysis results. Tanisha Bundy MD LAB MICROBIOLOGY - GENERAL ORDERABLES Final Result Performing Organization Address [facility] Co de Phone Number [facility] [address] Department [employer] [place] [address] * COVID-19 Coronavirus antigen Nasopharyngeal (06/19/2020 8:04 AM CDT) COVID-19 Ag Presumptive Negative Presumptive Negative [facility] Comment: Interpretive data: Testing was performed under Emergency Use Authorization using the [employer] Veritor System for detection of SARS-CoV-2 nucleocapsid antigen. The test characteristics and specimen types have been verified by the performing laboratory. Negative results do not preclude infection and should not be used as the sole basis for treatment or other patient management decisions, including infection control decisions, especially in the presence of clinical signs and symptoms consistent with COVID-19, or in those who have been in contact with the virus. Presumptive negative antigen results are final, however, it is recommended that negative results be confirmed by a molecular testing method in symptomatic patients if clinical suspicion for COVID-19 is still high. This test is intended for detection of SARS-CoV-2 in patients who are suspected to have COVID-19 within the first five days of the onset of symptoms. Specimens collected after day five of illness are more likely to be negative compared to molecular testing methods (RT-PCR based assay). Positive results indicate the presence of SARS-CoV-2 viral antigens but clinical correlation with patient signs and symptoms is necessary to determine infection status. Interpretive data last modified April 2020. First COVID-19 test? Unknown [facility] Employeed in healthcare? Unknown [facility] status? Unknown [facility] Group care resident? Unknown [facility] Hospitalized? Unknown [facility] Is patient in ICU? Unknown [facility] Symptomatic as defined by CDC? Unknown [facility] Nasopharyngeal 06/19/2020 8: 04 AM CDT 06/19/2020 8:36 AM CDT Summer Anguiano MD LAB MICROBIOLOGY - GENERAL ORDERABLES Final Result Performing Organization Address City/[facility]/ZIP Co de Phone Number [facility] [address] Department [place] [address] * (ABNORMAL) POCT glucose (06/19/2020 5:56 AM CDT) [facility] Glucose, POC 206(H) 70 - 140 mg/dL [facility] Comment: For Glucose values <35 mg/dl when Hematocrit is >60 mg/dl,the test may not accurately detect significant hypoglycemia,and testing in the Laboratory should be considered if clinically indicated. Blood specimen (specimen) 06/19/2020 5:56 AM CDT 06/19/2020 5:56 AM CDT Summer Anguiano MD LAB POCT ORDERABLES - DEVIC E Final Result [facility] [address] Department [place] [address] * eGFR (06/19/2020 5:50 AM CDT) [facility] eGFR 94 mL/min/1.7 3 m2 [facility] Comment: Interpretive Data Reference Interval Normal ?>/= 90 mL/min/1.73m2 Mildly decreased* ? 60 - 89 mL/min/1.73m2 Mildly to moderately decreased ?45 - 59 mL/min/1.73m2 Moderately to severely decreased ??30 - 44 mL/min/1.73m2 Severely decreased ?15 - 29 mL/min/1.73m2 Kidney Failure ?< 15 ??mL/min/1.73m2 *Relative to young adult level Estimated glomerular filtration rate is determined by the CKD-EPI equation recommended by the National Kidney Foundation (KDIGO 2012 Clinical Practice Guideline for the Evaluation and Management of Chronic Kidney Disease. Kidney Intnl Suppl Mar 2012;3:1). The CKD-EPI equation should not be used for patients with unstable renal function and has not been validated in children and those over 70. Current interpretive data was last reviewed 2020 Blood specimen (specimen) 06/19/2020 5:50 AM CDT 06/19/2020 6:13 AM CDT Summer Anguiano MD LAB BLOOD ORDERABLES Final Result [facility] [address] Department [place] [address] * Basic metabolic panel (06/19/2020 5:50 AM CDT) [facility] Sodium 135 135 - 145 mmol/L [facility] Potassium, pl 3.9 3.3 - 4.9 mmol/L [facility] Comment:Hemolyzed; potassium value may be falsely elevated by as much as 0.3 - 0.5 mmol/L. Suggest redraw and reanalysis Chloride 97 97 - 110 mmol/L [facility] CO2 30 22 - 32 mmol/L [facility] Anion gap 8 2 - 15 mmol/L [facility] BUN 16 8 - 25 mg/dL [facility] Creatinine 0.63 0.60 - 1.10 mg/dL [facility] Glucose 184 70 - 199 mg/dL [facility] Comment: Interpretive Data Fasting glucose >/= 126 mg/dl is diagnostic for diabetes. ?? Fasting is defined as no caloric intake for at least 8 hours. Fasting glucose between 100 mg/dl to 125 mg/dl is diagnostic of prediabetes. In a patient with classic symptoms of hyperglycemia or hyperglycemic crisis, a random glucose >/= 200 mg/dl is diagnostic for diabetes. In the absence of unequivocal hyperglycemia, results should be confirmed by repeat testing. The classification and Diagnosis of Diabetes Diabetes Care 2017;40 (Suppl. 1):S11. Current interpretive data was last revised 2017. Calcium 8.6 8.5 - 10.3 mg/dL [facility] Blood specimen (specimen) 06/19/2020 5:50 AM CDT 06/19/2020 6:13 AM CDT us Summer Anguiano MD LAB BLOOD ORDERABLES Final Result Performing Organization Address [facility] Co de Phone Number [facility] [address] Department [place] [address] * (ABNORMAL) POCT glucose (06/18/2020 8:59 PM CDT) [facility] [employer] [facility] Glucose, POC 251(H) 70 - 140 mg/dL [facility] Comment: For Glucose values <35 mg/dl when Hematocrit is >60 mg/dl,the test may not accurately detect significant hypoglycemia,and testing in the Laboratory should be considered if clinically indicated. Blood specimen (specimen) 06/18/2020 8:59 PM CDT 06/18/2020 8:59 PM CDT us Summer Anguiano MD LAB POCT ORDERABLES - DEVIC E Final Result Performing Organization Address [facility] Co de Phone Number [facility] [address] [facility] [employer] [place] [address] * (ABNORMAL) POCT glucose (06/18/2020 4:52 PM CDT) Glucose, POC 210(H) 70 - 140 mg/dL [facility] Comment: For Glucose values <35 mg/dl when Hematocrit is >60 mg/dl,the test may not accurately detect significant hypoglycemia,and testing in the Laboratory should be considered if clinically indicated. Blood specimen (specimen) 06/18/2020 4:52 PM CDT 06/18/2020 4:52 PM CDT Summer Anguiano MD LAB POCT ORDERABLES - DEVIC E Final Result Performing Organization Address [facility] de Phone Number [facility] [address] [place] [address] * (ABNORMAL) POCT glucose (06/18/2020 11:27 AM CDT) Glucose, POC 177(H) 70 - 140 mg/dL [facility] Comment: For Glucose values <35 mg/dl when Hematocrit is >60 mg/dl,the test may not accurately detect significant hypoglycemia,and testing in the Laboratory should be considered if clinically indicated. Blood specimen (specimen) 06/18/2020 11:27 AM CDT 06/18/2020 11:27 AM CDT Summer Anguiano MD LAB POCT ORDERABLES - DEVIC E Final Result Performing Organization Address [facility] Co de Phone Number [facility] [address] [place] [address] * (ABNORMAL) POCT glucose (06/18/2020 6:23 AM CDT) Glucose, POC 181(H) 70 - 140 mg/dL [facility] Comment: For Glucose values <35 mg/dl when Hematocrit is >60 mg/dl,the test may not accurately detect significant hypoglycemia,and testing in the Laboratory should be considered if clinically indicated. Blood specimen (specimen) 06/18/2020 6:23 AM CDT 06/18/2020 6:23 AM CDT Result [facility] Summer Anguiano MD LAB POCT ORDERABLES - DEVIC E Final Result Performing Organization Address [facility] Co de Phone Number [facility] [address] [facility] [employer] [place] [address] * (ABNORMAL) T4, free (06/18/2020 5:43 AM CDT) Free T4 0.11(L) 0.90 - 1.70 ng/dL [facility] Blood specimen (specimen) 06/18/2020 5:43 AM CDT 06/18/2020 6:23 AM CDT Narrative [facility] - 06/18/2020 7:18 AM CDT This test was reflexed from a TSH result. Summer Anguiano MD LAB BLOOD ORDERABLES Final Result Performing Organization Address [facility] de Phone Number [facility] [address] [facility] [employer] [place] [address] * (ABNORMAL) TSH reflex to free T4 (06/18/2020 5:43 AM CDT) TSH 19.29(H) 0.30 - 4.20 mcIUnit/mL [facility] Blood specimen (specimen) 06/18/2020 5:43 AM CDT 06/18/2020 6:23 AM CDT Result [facility] Summer Anguiano MD LAB BLOOD ORDERABLES Final Result Performing Organization Address [facility] Co de Phone Number [facility] [address] Department [employer] [place] [address] * (ABNORMAL) Hemoglobin A1c (06/18/2020 5:43 AM CDT) Hgb A1C 8.0(H) 4.0 - 5.6 % [facility] Estimated Average Glucose 183 mg/dL [facility] Comment: The ADA recommends reporting an estimated Average Glucose (eAG) with all Hemoglobin A1c results using the equation derived from a study of 507 normal and diabetic adults. ??Minority populations were underrepresented and children were not included. ?? (Diabetes Care 31:3758-7459, 2008). ??The eAG is not equivalent to a fasting glucose. Blood specimen (specimen) 06/18/2020 5:43 AM CDT 06/18/2020 6:23 AM CDT Summer Anguiano MD LAB BLOOD ORDERABLES Final Result Performing Organization Address [facility] Co de Phone Number [facility] [address] [employer] [place], [place] [id number] * (ABNORMAL) POCT glucose (06/17/2020 10:22 PM CDT) Pathologist [facility] Glucose, POC 270(H) 70 - 140 mg/dL [facility] Comment: For Glucose values <35 mg/dl when Hematocrit is >60 mg/dl,the test may not accurately detect significant hypoglycemia,and testing in the Laboratory should be considered if clinically indicated. Blood specimen (specimen) 06/17/2020 10:22 PM CDT 06/17/2020 10:22 PM CDT Summer Anguiano MD LAB POCT ORDERABLES - DEVIC E Final Result Performing Organization Address [facility]/ZIP Co de Phone Number [facility] [address] [place] [address] * CTA Abdominal Aorta And Bilateral Iliofemoral Runoff (06/17/2020 6:19 PM CDT) Anatomical Region Laterality Modality Body Bilateral Computed Tomogra phy 06/18/2020 10:1 3 AM CDT Impressions 06/18/2020 1:09 PM CDT 1. ??Right lower extremity: Occluded superficial femoral artery at the distal end of the stump. 2. ??Left lower extremity: Heavily calcified vessels with runoff of the posterior tibial artery. ??The anterior tibial artery is occluded at the mid calf but reconstitutes at the level of the ankle and the peroneal artery has thready opacification with occlusion distally. 3. ??Unchanged pericardial effusion. 4. ??Unchanged cystic mass in the right breast, could represent seroma, correlate with prior history. 5. ??Unchanged seroma associated with anterior abdominal wall mesh hernia repair. Dictated by: Bob Saul M.D. Electronically signed by: Madison Valle M.D. Narrative 06/18/2020 1:09 PM CDT EXAMINATION: ??CT ANGIOGRAPHY OF THE ABDOMEN, PELVIS, AND LOWER EXTREMITIES WITH CONTRAST HISTORY: Left foot osteomyelitis, prior right mcpbp-psz-nymt amputation. TECHNIQUE: CT angiography of the abdomen, pelvis, and lower extremities was performed following the uneventful intravenous administration of 120 ml Optiray-350. Vascular 3D images were generated on a dedicated workstation and also reviewed. FINDINGS: 06/16/2020 CT VASCULAR FINDINGS: Abdominal Aorta and Branches: Celiac axis: no significant stenosis SMA: no significant stenosis DESTINY: no significant stenosis Right renal vessels: no significant stenosis Left renal vessels: no significant stenosis Infrarenal aorta: no significant stenosis. No aneurysm. Pelvic Vessels: R. Common iliac artery: ??no significant stenosis R. External iliac artery: ??no significant stenosis R. Internal iliac artery: ??no significant stenosis L. Common iliac artery: ??no significant stenosis L. External iliac artery: ??no significant stenosis L. Internal iliac artery: ??no significant stenosis Right Lower Extremity: There is heavy calcification. R. Common femoral artery: ??Heavy calcification but patent R. Profunda femoris artery: ??Heavy calcification but patent R. Superficial femoral artery: ??Occluded distally. Left Lower Extremity: Heavy calcification throughout. L. Common femoral artery: ??no significant stenosis L. Profunda femoris artery: ??no significant stenosis L. Superficial femoral artery: ??Areas of near occlusion distally L. Popliteal artery: ??severe stenosis L. Anterior tibial artery: ??Densely calcified with occlusion in the mid calf but reconstitutes at the ankle. L. Tibioperoneal trunk: ??Patent. L. Posterior tibial artery: ??Patent. L. Peroneal artery: ??Thready and occluded distally. L. Dorsalis pedis artery: ??no significant stenosis L. Plantar artery: ??no significant stenosis NON-VASCULAR FINDINGS: There is scarring/atelectasis in the left lung base. ??No pleural effusion. ??There is unchanged moderate pericardial effusion of simple fluid. ??Redemonstrated partially evaluated likely seromas in the right breast and in the anterior pelvic subcutaneous tissues. ??Post mesh hernia repair changes noted. Liver is normal in size morphology without suspicious lesion. ??There is old granulomatous disease in the spleen. Duodenal diverticulum noted. Unchanged nodular thickening of the left adrenal gland. Pancreas, gallbladder, and common bile duct are normal. ??Stomach and duodenum are normal. ??Adrenal glands normal. ??Kidneys enhance symmetrically without hydronephrosis. ??Urinary bladder is normal. There is stool impaction again noted in the rectum with soft tissue stranding around it consistent with cervical colitis. ??The remaining colon is normal in caliber. ??No small bowel obstruction. ??No suspicious adenopathy. ??Uterus and adnexa are normal. There is sclerosis and erosion of the calcaneus. ??There is anasarca. Procedure Note Madison Valle MD - 06/18/2020 EXAMINATION: CT ANGIOGRAPHY OF THE ABDOMEN, PELVIS, AND LOWER EXTREMITIES WITH CONTRAST HISTORY: Left foot osteomyelitis, prior right yuzpg-nox-iaam amputation. TECHNIQUE: CT angiography of the abdomen, pelvis, and lower extremities was performed following the uneventful intravenous administration of 120 ml Optiray-350. Vascular 3D images were generated on a dedicated workstation and also reviewed. FINDINGS: 06/16/2020 CT VASCULAR FINDINGS: Abdominal Aorta and Branches: Celiac axis: no significant stenosis SMA: no significant stenosis DESTINY: no significant stenosis Right renal vessels: no significant stenosis Left renal vessels: no significant stenosis Infrarenal aorta: no significant stenosis. No aneurysm. Pelvic Vessels: R. Common iliac artery: no significant stenosis R. External iliac artery: no significant stenosis R. Internal iliac artery: no significant stenosis L. Common iliac artery: no significant stenosis L. External iliac artery: no significant stenosis L. Internal iliac artery: no significant stenosis Right Lower Extremity: There is heavy calcification. R. Common femoral artery: Heavy calcification but patent R. Profunda femoris artery: Heavy calcification but patent R. Superficial femoral artery: Occluded distally. Left Lower Extremity: Heavy calcification throughout. L. Common femoral artery: no significant stenosis L. Profunda femoris artery: no significant stenosis L. Superficial femoral artery: Areas of near occlusion distally L. Popliteal artery: severe stenosis L. Anterior tibial artery: Densely calcified with occlusion in the mid calf but reconstitutes at the ankle. L. Tibioperoneal trunk: Patent. L. Posterior tibial artery: Patent. L. Peroneal artery: Thready and occluded distally. L. Dorsalis pedis artery: no significant stenosis L. Plantar artery: no significant stenosis NON-VASCULAR FINDINGS: There is scarring/atelectasis in the left lung base. No pleural effusion. There is unchanged moderate pericardial effusion of simple fluid. Redemonstrated partially evaluated likely seromas in the right breast and in the anterior pelvic subcutaneous tissues. Post mesh hernia repair changes noted. Liver is normal in size morphology without suspicious lesion. There is old granulomatous disease in the spleen. Duodenal diverticulum noted. Unchanged nodular thickening of the left adrenal gland. Pancreas, gallbladder, and common bile duct are normal. Stomach and duodenum are normal. Adrenal glands normal. Kidneys enhance symmetrically without hydronephrosis. Urinary bladder is normal. There is stool impaction again noted in the rectum with soft tissue stranding around it consistent with cervical colitis. The remaining colon is normal in caliber. No small bowel obstruction. No suspicious adenopathy. Uterus and adnexa are normal. There is sclerosis and erosion of the calcaneus. There is anasarca. IMPRESSION: 1. Right lower extremity: Occluded superficial femoral artery at the distal end of the stump. 2. Left lower extremity: Heavily calcified vessels with runoff of the posterior tibial artery. The anterior tibial artery is occluded at the mid calf but reconstitutes at the level of the ankle and the peroneal artery has thready opacification with occlusion distally. 3. Unchanged pericardial effusion. 4. Unchanged cystic mass in the right breast, could represent seroma, correlate with prior history. 5. Unchanged seroma associated with anterior abdominal wall mesh hernia repair. Dictated by: Bob Saul M.D. Electronically signed by: Madison Valle M.D. Result [facility] Summer Anguiano MD IMG CT PROCEDURES Final Res ult * (ABNORMAL) POCT glucose (06/17/2020 4:51 PM CDT) Glucose, POC 167(H) 70 - 140 mg/dL [facility] Comment: For Glucose values <35 mg/dl when Hematocrit is >60 mg/dl,the test may not accurately detect significant hypoglycemia,and testing in the Laboratory should be considered if clinically indicated. Blood specimen (specimen) 06/17/2020 4:51 PM CDT 06/17/2020 4:51 PM CDT Result [facility] Summer Anguiano MD LAB POCT ORDERABLES - DEVIC E Final Result Performing Organization Address [facility] Co de Phone Number [facility] [address] [employer] [place] [address] * Blood culture Blood (06/17/2020 4:26 PM CDT) Report Final Report: No growth [facility] Blood specimen (specimen) 06/17/2020 4:26 PM CDT 06/17/2020 4:43 PM CDT Narrative [facility] - 06/23/2020 7:01 AM CDT From a different site than #1. Result [facility] Summer Anguiano MD LAB MICROBIOLOGY - GENERAL ORDERABLES Final Result Performing Organization Address City/[facility]/ZIP Co de Phone Number [facility] [address] Department of [employer] [place] [address] * Blood culture Blood (06/17/2020 4:26 PM CDT) Report Final Report: No growth [facility] Blood specimen (specimen) 06/17/2020 4:26 PM CDT 06/17/2020 4:43 PM CDT Result [facility] Summer Anguiano MD LAB MICROBIOLOGY - GENERAL ORDERABLES Final Result Performing Organization Address [facility] Co de Phone Number [facility] [address] [place] [address] * (ABNORMAL) POCT glucose (06/17/2020 11:57 AM CDT) Glucose, POC 150(H) 70 - 140 mg/dL [facility] Comment: For Glucose values <35 mg/dl when Hematocrit is >60 mg/dl,the test may not accurately detect significant hypoglycemia,and testing in the Laboratory should be considered if clinically indicated. Blood specimen (specimen) 06/17/2020 11:57 AM CDT 06/17/2020 11:57 AM CDT Summer Anguiano MD LAB POCT ORDERABLES - DEVIC E Final Result Performing Organization Address [facility] de Phone Number [facility] [address] [place] [address] * US ZAYNAB (06/17/2020 10:41 AM CDT) Anatomical Region Laterality Modality Vascular N/A Ultrasound 06/17/2020 6:15 PM CDT Impressions 06/17/2020 6:15 PM CDT 1. ??The patient has a right liuig-blq-trls amputation. No studies were done on this extremity. ?? 2. The noncompressible vessels at the level of the left ankle make calculation of an ankle-brachial index in possible. Therefore difficult to classify the severity of ischemia. The digit brachial index is low at 0.36 and the absolute digit pressure is low at 44. These values suggest arterial perfusion in a marginal range to adequately support wound healing. Clinical correlation suggested. Electronically signed by: Franco Martinez M.D. Narrative 06/17/2020 6:15 PM CDT DATE:06/17/2020 6:05 AM Ankle-Brachial Index including digits and single level PVR waveforms was performed. Comparison Study Date: None available INDICATION: Left foot pain. The patient has a right jrmur-gjx-pyrx amputation. Right side: The patient has a right jysjg-plt-ogym amputation Left side: The brachial pressure is 123 mm Hg. ??The ankle pressure in the posterior tibial and in the dorsalis pedis cannot be calculated because of noncompressible vessels. The digit pressure is 44 mm Hg. The ankle-brachial index on the left cannot be calculated. The digit brachial index on the left is 0.36. Left lower extremity ulcer volume recordings demonstrate pulsatile waveforms at the ankle and metatarsal levels. The digit waveforms are slightly pulsatile. Procedure Note Franco Martinez MD - 06/17/2020 DATE:06/17/2020 6:05 AM Ankle-Brachial Index including digits and single level PVR waveforms was performed. Comparison Study Date: None available INDICATION: Left foot pain. The patient has a right shaly-mxm-gdnz amputation. Right side: The patient has a right ezpof-oqb-cihn amputation Left side: The brachial pressure is 123 mm Hg. The ankle pressure in the posterior tibial and in the dorsalis pedis cannot be calculated because of noncompressible vessels. The digit pressure is 44 mm Hg. The ankle-brachial index on the left cannot be calculated. The digit brachial index on the left is 0.36. Left lower extremity ulcer volume recordings demonstrate pulsatile waveforms at the ankle and metatarsal levels. The digit waveforms are slightly pulsatile. IMPRESSION: 1. The patient has a right derkg-qsw-ufsv amputation. No studies were done on this extremity. 2. The noncompressible vessels at the level of the left ankle make calculation of an ankle-brachial index in possible. Therefore difficult to classify the severity of ischemia. The digit brachial index is low at 0.36 and the absolute digit pressure is low at 44. These values suggest arterial perfusion in a marginal range to adequately support wound healing. Clinical correlation suggested. Electronically signed by: Franco Martinez M.D. Lisa Pradhan MD [facility] PROCEDURES Final Result * (ABNORMAL) POCT glucose (06/17/2020 6:45 AM CDT) [facility] Glucose, POC 185(H) 70 - 140 mg/dL [facility] Comment: For Glucose values <35 mg/dl when Hematocrit is >60 mg/dl,the test may not accurately detect significant hypoglycemia,and testing in the Laboratory should be considered if clinically indicated. Blood specimen (specimen) 06/17/2020 6:45 AM CDT 06/17/2020 6:45 AM CDT us Summer Anguiano MD LAB POCT ORDERABLES - DEVIC E Final Result [facility] [address] Department [place] [address] * eGFR (06/17/2020 6:37 AM CDT) eGFR 68 mL/min/1.7 3 m2 [facility] Comment: Interpretive Data Reference Interval Normal ?>/= 90 mL/min/1.73m2 Mildly decreased* ? 60 - 89 mL/min/1.73m2 Mildly to moderately decreased ?45 - 59 mL/min/1.73m2 Moderately to severely decreased ??30 - 44 mL/min/1.73m2 Severely decreased ?15 - 29 mL/min/1.73m2 Kidney Failure ?< 15 ??mL/min/1.73m2 *Relative to young adult level Estimated glomerular filtration rate is determined by the CKD-EPI equation recommended by the National Kidney Foundation (KDIGO 2012 Clinical Practice Guideline for the Evaluation and Management of Chronic Kidney Disease. Kidney Intnl Suppl Mar 2012;3:1). The CKD-EPI equation should not be used for patients with unstable renal function and has not been validated in children and those over 70. Current interpretive data was last reviewed 2020 Blood specimen (specimen) 06/17/2020 6:37 AM CDT 06/17/2020 7:35 AM CDT us Tanisha Bundy MD LAB BLOOD ORDERABLES Final Result [facility] [address] [place] [address] * (ABNORMAL) Differential, auto (06/17/2020 6:37 AM CDT) Neutrophil abs 5.3 1.7 - 6.5 K/cumm [facility] [facility] Imm gran abs 0.0 0.0 - 0.1 K/cumm [facility] Lymphocyte abs 0.6(L) 0.8 - 3.3 K/cumm [facility] Monocyte abs 0.4 0.2 - 0.8 K/cumm [facility] Eosinophil abs 0.0 0.0 - 0.5 K/cumm [facility] Basophil abs 0.0 0.0 - 0.1 K/cumm [facility] Neutrophil pct 83.2 % [facility] Comment: Interpretive Data Percent cell count reference ranges are not reported, since discordance with absolute values may lead to misinterpretation of CBC data. Current Interpretive Data was last revised on 2017. Imm gran pct 0.5 % [facility] Comment: Interpretive Data Percent cell count reference ranges are not reported, since discordance with absolute values may lead to misinterpretation of CBC data. Current Interpretive Data was last revised on 2017. Lymphocyte pct 10.1 % [facility] Comment: Interpretive Data Percent cell count reference ranges are not reported, since discordance with absolute values may lead to misinterpretation of CBC data. Current Interpretive Data was last revised on 2017. Monocyte pct 5.7 % [facility] Comment: Interpretive Data Percent cell count reference ranges are not reported, since discordance with absolute values may lead to misinterpretation of CBC data. Current Interpretive Data was last revised on 2017. Eosinophil pct 0.0 % [facility] Comment: Interpretive Data Percent cell count reference ranges are not reported, since discordance with absolute values may lead to misinterpretation of CBC data. Current Interpretive Data was last revised on 2017. Basophil pct 0.5 % [facility] Comment: Interpretive Data Percent cell count reference ranges are not reported, since discordance with absolute values may lead to misinterpretation of CBC data. Current Interpretive Data was last revised on 2017. Blood specimen (specimen) 06/17/2020 6:37 AM CDT 06/17/2020 7:19 AM CDT Tanisha Bundy MD LAB BLOOD ORDERABLES Final Result Performing Organization Address [facility] Co de Phone Number [facility] [address] [facility] [employer] [place] [address] * aPTT (06/17/2020 6:37 AM CDT) aPTT 32 27 - 37 sec [facility] Comment: Interpretive Data Therapeutic heparin range: 60.0 - 94.0 seconds. Based on correlation with therapeutic heparin activity range of 0.3-0.7 Units/mL. Current interpretive data was last revised on 2020. Blood specimen (specimen) 06/17/2020 6:37 AM CDT 06/17/2020 7:20 AM CDT Tanisha Bundy MD LAB BLOOD ORDERABLES Final Result Performing Organization Address [facility] Co de Phone Number [facility] [address] [facility] [employer] [place] [place] [address] * (ABNORMAL) Protime-INR (06/17/2020 6:37 AM CDT) PT 14.1(H) 9.5 - 13.6 sec [facility] INR 1.3(H) 0.9 - 1.2 [facility] Comment: Interpretive data Oral anticoagulant therapeutic ranges: Venous thromboembolism prophylaxis or treatment: 2.0-3.0 CARDIOLOGY Standard range: 2.0-3.0 High-intensity range: 2.5-3.5 Refer to indication-specific guidelines for appropriate target ranges for prosthetic heart valve replacement. Current interpretive data was last revised on 2019. Blood specimen (specimen) 06/17/2020 6:37 AM CDT 06/17/2020 7:20 AM CDT Tanisha Bundy MD LAB BLOOD ORDERABLES Final Result Performing Organization Address [facility]/ZIP Co de Phone Number [facility] [address] [employer] [place] [address] * (ABNORMAL) CBC with auto differential (06/17/2020 6:37 AM CDT) Pathologist [facility] WBC 6.4 3.8 - 9.9 K/cumm [facility] Hgb 9.8(L) 11.9 - 15.5 g/dL [facility] Hct 29.9(L) 35.6 - 45.5 % [facility] Plt 209 150 - 400 K/cumm [facility] MPV 9.8 9.1 - 12.3 fL [facility] RBC 3.09(L) 3.90 - 5.20 M/cumm [facility] MCV 96.8(H) 81.3 - 96.4 fL [facility] MCH 31.7 27.1 - 33.3 pg [facility] MCHC 32.8 32.3 - 35.7 g/dL [facility] RDW CV 15.0(H) 11.1 - 14.9 % [facility] RDW SD 53.1(H) 35.7 - 48.1 fL [facility] NRBC abs 0.00 0.00 - 0.01 K/cumm [facility] Blood specimen (specimen) 06/17/2020 6:37 AM CDT 06/17/2020 7:19 AM CDT Tanisha Bundy MD LAB BLOOD ORDERABLES Final Result [facility] [address] Department [employer] [place] [place] [address] * Phosphorus (06/17/2020 6:37 AM CDT) Pathologist [facility] Phosphorus, pl 3.5 2.3 - 4.5 mg/dL [facility] Blood specimen (specimen) 06/17/2020 6:37 AM CDT 06/17/2020 7:35 AM CDT Tanisha Bundy MD LAB BLOOD ORDERABLES Final Result Performing Organization Address City/[facility] Co de Phone Number [facility] [address] Department [employer] [place] [place] [address] * Magnesium (06/17/2020 6:37 AM CDT) Pathologist [facility] Magnesium 1.8 1.4 - 2.5 mg/dL [facility] Blood specimen (specimen) 06/17/2020 6:37 AM CDT 06/17/2020 7:35 AM CDT Tanisha Bundy MD LAB BLOOD ORDERABLES Final Result Performing Organization Address [facility] de Phone Number [facility] [address] Department of [employer] [place] [address] * (ABNORMAL) Comprehensive metabolic panel (06/17/2020 6:37 AM CDT) [facility] Sodium 136 135 - 145 mmol/L [facility] Potassium, pl 3.1(L) 3.3 - 4.9 mmol/L [facility] Chloride 95(L) 97 - 110 mmol/L [facility] CO2 32 22 - 32 mmol/L [facility] Anion gap 9 2 - 15 mmol/L [facility] BUN 18 8 - 25 mg/dL [facility] Creatinine 0.89 0.60 - 1.10 mg/dL [facility] Glucose 170 70 - 199 mg/dL [facility] Comment: Interpretive Data Fasting glucose >/= 126 mg/dl is diagnostic for diabetes. ?? Fasting is defined as no caloric intake for at least 8 hours. Fasting glucose between 100 mg/dl to 125 mg/dl is diagnostic of prediabetes. In a patient with classic symptoms of hyperglycemia or hyperglycemic crisis, a random glucose >/= 200 mg/dl is diagnostic for diabetes. In the absence of unequivocal hyperglycemia, results should be confirmed by repeat testing. The classification and Diagnosis of Diabetes Diabetes Care 2017;40 (Suppl. 1):S11. Current interpretive data was last revised 2017. Calcium 8.6 8.5 - 10.3 mg/dL [facility] Bilirubin, total 0.6 0.1 - 1.2 mg/dL [facility] Protein, pl 7.0 6.5 - 8.5 g/dL [facility] Albumin 3.5 3.5 - 5.0 g/dL [facility] Alk phos 27(L) 40 - 130 Units/L [facility] ALT 25 7 - 45 Units/L [facility] AST 33 10 - 45 Units/L [facility] Blood specimen (specimen) 06/17/2020 6:37 AM CDT 06/17/2020 7:35 AM CDT Tanisha Bundy MD LAB BLOOD ORDERABLES Final Result Performing Organization Address [facility] Co de Phone Number [facility] [address] [employer] [place], [place] [id number] * (ABNORMAL) POCT glucose (06/16/2020 10:32 PM CDT) Glucose, POC 185(H) 70 - 140 mg/dL [facility] Comment: For Glucose values <35 mg/dl when Hematocrit is >60 mg/dl,the test may not accurately detect significant hypoglycemia,and testing in the Laboratory should be considered if clinically indicated. Blood specimen (specimen) 06/16/2020 10:32 PM CDT 06/16/2020 10:32 PM CDT us Tanisha Bundy MD LAB POCT ORDERABLES - GILMA CE Final Result Performing Organization Address City/[facility]/ZIP Co de Phone Number [facility] [address] Department of [employer] [place], [place] [id number] * (ABNORMAL) POCT glucose (06/16/2020 8:41 PM CDT) Glucose, POC 213(H) 70 - 140 mg/dL [facility] Comment: For Glucose values <35 mg/dl when Hematocrit is >60 mg/dl,the test may not accurately detect significant hypoglycemia,and testing in the Laboratory should be considered if clinically indicated. Blood specimen (specimen) 06/16/2020 8:41 PM CDT 06/16/2020 8:41 PM CDT Tanisha Bundy MD LAB POCT ORDERABLES - GILMA CE Final Result [facility] [address] Department [place] [address] * CT Head WO Contrast (06/16/2020 5:53 PM CDT) Anatomical Region Laterality Modality Head and Neck N/A Computed Tomogra phy 06/16/2020 6:03 PM CDT Impressions 06/16/2020 6:03 PM CDT 1. ??No acute intracranial process identified. 2. ??Mild diffuse atrophy of the brain. 3. ??Benign basal ganglia calcifications symmetrically. 4. ??Atherosclerotic calcification of the carotid siphons and distal vertebral arteries. Electronically signed by: Kenny Fabian M.D. Narrative 06/16/2020 6:03 PM CDT Exam: CT HEAD WO CONTRAST Date/Time of Exam: 06/16/2020 5:35 PM Reason For Exam: AMS. Diagnosis: Acute alteration of mental status. Findings: Axial images of the head were obtained without the use of contrast material. ??Sagittal and coronal reformats generated. ??Note is made that the patient received intravenous contrast material for CT examination of the abdomen performed earlier the same day. No prior comparisons available. There are no signs of an intracranial mass lesion or mass effect. ??No signs of acute intracranial hemorrhage or acute segmental infarction the brain. ??The ventricles are normal in size. ??The sulci and cisterns are patent. ??There are benign calcifications in the basal ganglia bilaterally. ??Benign dural calcifications are present. Vascular calcifications are evident in the carotid siphons and distal vertebral arteries. ??The calvarium appears to be intact. ??The visualized paranasal sinus cavities are clear. ??The mastoid air cells are clear. Procedure Note Kenny Fabian MD - 06/16/2020 Exam: CT HEAD WO CONTRAST Date/Time of Exam: 06/16/2020 5:35 PM Reason For Exam: AMS. Diagnosis: Acute alteration of mental status. Findings: Axial images of the head were obtained without the use of contrast material. Sagittal and coronal reformats generated. Note is made that the patient received intravenous contrast material for CT examination of the abdomen performed earlier the same day. No prior comparisons available. There are no signs of an intracranial mass lesion or mass effect. No signs of acute intracranial hemorrhage or acute segmental infarction the brain. The ventricles are normal in size. The sulci and cisterns are patent. There are benign calcifications in the basal ganglia bilaterally. Benign dural calcifications are present. Vascular calcifications are evident in the carotid siphons and distal vertebral arteries. The calvarium appears to be intact. The visualized paranasal sinus cavities are clear. The mastoid air cells are clear. IMPRESSION: 1. No acute intracranial process identified. 2. Mild diffuse atrophy of the brain. 3. Benign basal ganglia calcifications symmetrically. 4. Atherosclerotic calcification of the carotid siphons and distal vertebral arteries. Electronically signed by: Kenny Fabian M.D. Preeti Barr MD IM CT PROCEDURES Final R esult * Respiratory pathogen panel Nasopharyngeal (06/16/2020 5:33 PM CDT) Pathologist [facility] Influenza A RNA Not Detected Not Detected [facility] Influenza B RNA Not Detected Not Detected [facility] RSV RNA Not Detected Not Detected [facility] COVID-19 RNA Not Detected Not Detected [facility] Coronavirus 229E RNA Not Detected Not Detected [facility] Coronavirus HKU1 RNA Not Detected Not Detected [facility] Coronavirus NL63 RNA Not Detected Not Detected [facility] Coronavirus OC43 RNA Not Detected Not Detected [facility] Adenovirus DNA Not Detected Not Detected [facility] Metapneumovirus RNA Not Detected Not Detected [facility] Rhinovirus/Enterov irus RNA Not Detected Not Detected [facility] Parainfluenza 1 RNA Not Detected Not Detected [facility] Parainfluenza 2 RNA Not Detected Not Detected [facility] Parainfluenza 3 RNA Not Detected Not Detected [facility] Parainfluenza 4 RNA Not Detected Not Detected [facility] B. pertussis DNA Not Detected Not Detected [facility] B. parapertussis DNA Not Detected Not Detected [facility] C. pneumoniae DNA Not Detected Not Detected [facility] M. pneumoniae DNA Not Detected Not Detected [facility] Comment: The [employer] FilmArray Respiratory Panel (RP2.1) assay is a multiplexed nucleic acid test capable of simultaneous qualitative detection and identification of multiple respiratory viral and bacterial nucleic acids, including SARS Coronavirus 2 (the causative agent of COVID-19). The following bacteria, viruses and virus subtypes can be identified using the FilmArray RP2 assay: Bordetella pertussis, Bordetella parapertussis, Chlamydophila pneumoniae, Mycoplasma pneumoniae, Adenovirus, SARS Coronavirus 2, seasonal coronaviruses (Coronavirus HKU1, Coronavirus NL63, Coronavirus 229E, and Coronavirus OC43), Influenza A, Influenza A subtype H1, Influenza A subtype H3, Influenza A subtype 2009 H1, Influenza B, Metapneumovirus, Parainfluenza 1, Parainfluenza 2, Parainfluenza 3, Parainfluenza 4, RSV, Rhinovirus/Enterovirus. Due to the genetic similarity between human Rhinovirus and Enterovirus, the FilmArray RP2.1 assay cannot reliably differentiate them. Coronavirus OC43 may cross-react with some isolates of Coronavirus HKU1. ??A dual positive result may be due to cross-reactivity or may indicate a co-infection. The detection and identification of specific viral and bacterial nucleic acids from individuals exhibiting signs and symptoms of a respiratory infection aids in the diagnosis of respiratory infection if used in conjunction with other clinical and epidemiological information. ??The results of this test should not be used as the sole basis for diagnosis, treatment, or other management decisions. ??Negative results in the setting of a respiratory illness may be due to infection with pathogens that are not detected by this test. ??Positive results do not rule out infection/co-infection with other organisms. ??The agent(s) detected by the FilmArray RP2.1 may not be the definite cause of disease. ??Additional testing (lab, imaging, etc.) may be necessary when evaluating a patient with possible respiratory tract infection. The FilmArray RP2.1 assay has emergency use authorization from the FDA for testing of VIDEO PHOTOGRAPHER swabs. ??The performance characteristics of this assay have been determined by [facility]. Current interpretive data was last revised on 2019. Employeed in healthcare? No [facility] status? No [facility] Group care resident? No [facility] Hospitalized? No [facility] Is patient in ICU? No [facility] Symptomatic as defined by CDC? Unknown [facility] Nasopharyngeal 06/16/2020 5: 33 PM CDT 06/16/2020 5:38 PM CDT Narrative [facility] - 06/16/2020 6:30 PM CDT Reason for testing?->Symptomatic (immunocompromised) Known exposure to confirmed or suspected COVID-19 case?->No Surveillance testing for transplant patient?->No Preeti Barr MD LAB MICROBIOLOGY - GENERA L ORDERABLES Final Result Performing Organization Address [facility] Co de Phone Number [facility] [address] Department [place] [address] * (ABNORMAL) POCT glucose (06/16/2020 4:39 PM CDT) [facility] Glucose, POC 228(H) 70 - 140 mg/dL [facility] Comment: For Glucose values <35 mg/dl when Hematocrit is >60 mg/dl,the test may not accurately detect significant hypoglycemia,and testing in the Laboratory should be considered if clinically indicated. Blood specimen (specimen) 06/16/2020 4:39 PM CDT 06/16/2020 4:39 PM CDT Preeti Barr MD LAB POCT ORDERABLES - DEV ICE Final Result Performing Organization Address City/[facility]/ZIP Co de Phone Number [facility] [address] Department [place] [address] * XR Foot Left 3 or More Views (06/16/2020 2:43 PM CDT) Anatomical Region Laterality Modality Lower Extremities, Foot Left Computed Radiography 06/16/2020 2:59 PM CDT Impressions 06/16/2020 2:59 PM CDT 1. ??Progressive erosion of the posterior calcaneus since 11/06/2019 with probable acute osteomyelitis of the posterosuperior calcaneus near the Achilles insertion with overlying soft tissue ulceration Electronically signed by: Navya Oliva M.D. Narrative 06/16/2020 2:59 PM CDT EXAMINATION: XR FOOT LEFT 3 OR MORE VIEWS HISTORY: Left leg pain, concern for osteomyelitis FINDINGS: 3 nonweightbearing views of the left foot are submitted with comparison to radiographs dated 11/06/2019. The bones are osteopenic. 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 ??No evidence of fracture. ??There are dense atherosclerotic calcifications. There has been interval worsening erosion of the posterior calcaneus, most prominently near the Achilles insertion. ??There is an overlying soft tissue ulcer. ??Heterotopic ossification is noted at the base of the calcaneus and in the region of osseous erosion. Procedure Note Navya Oliva MD - 06/16/2020 EXAMINATION: XR FOOT LEFT 3 OR MORE VIEWS HISTORY: Left leg pain, concern for osteomyelitis FINDINGS: 3 nonweightbearing views of the left foot are submitted with comparison to radiographs dated 11/06/2019. The bones are osteopenic. 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 No evidence of fracture. There are dense atherosclerotic calcifications. There has been interval worsening erosion of the posterior calcaneus, most prominently near the Achilles insertion. There is an overlying soft tissue ulcer. Heterotopic ossification is noted at the base of the calcaneus and in the region of osseous erosion. IMPRESSION: 1. Progressive erosion of the posterior calcaneus since 11/06/2019 with probable acute osteomyelitis of the posterosuperior calcaneus near the Achilles insertion with overlying soft tissue ulceration Electronically signed by: Navya Oliva M.D. us Preeti Barr MD IMG XR PROCEDURES Final R esult * XR Chest 1 Vw Portable (06/16/2020 2:43 PM CDT) Anatomical Region Laterality Modality Body, Chest N/A Computed Radiogr aphy 06/16/2020 3:00 PM CDT Impressions 06/16/2020 3:00 PM CDT 1. ??Enlarged cardiac silhouette shown in large part reflect the presence of a moderately large pericardial effusion on concurrently performed computed tomography. 2. ??The left lung base is not well penetrated/assessed on this radiograph. ??However, the CT study demonstrates only some minimal atelectasis at the left lung base and no left pleural fluid. ??The right lung is clear. Electronically signed by: Tomi Urena M.D. Narrative 06/16/2020 3:00 PM CDT Portable chest HISTORY: Fever. FINDINGS: An AP upright lordotic radiograph of the chest obtained essentially in expiration is compared to a previous examination 11/22/2019. ??Comparison is also made to a CT examination of the abdomen performed earlier this afternoon. ??The heart size is mildly enlarged. ??This is shown to reflect a moderately large pericardial effusion on the patient's CT examination. ??The left lung base is poorly penetrated/assessed. ??The CT study demonstrates only some minimal atelectasis at the left lung base and no pleural fluid. ??The right lung is clear. Procedure Note Tomi Urena MD - 06/16/2020 Portable chest HISTORY: Fever. FINDINGS: An AP upright lordotic radiograph of the chest obtained essentially in expiration is compared to a previous examination 11/22/2019. Comparison is also made to a CT examination of the abdomen performed earlier this afternoon. The heart size is mildly enlarged. This is shown to reflect a moderately large pericardial effusion on the patient's CT examination. The left lung base is poorly penetrated/assessed. The CT study demonstrates only some minimal atelectasis at the left lung base and no pleural fluid. The right lung is clear. IMPRESSION: 1. Enlarged cardiac silhouette shown in large part reflect the presence of a moderately large pericardial effusion on concurrently performed computed tomography. 2. The left lung base is not well penetrated/assessed on this radiograph. However, the CT study demonstrates only some minimal atelectasis at the left lung base and no left pleural fluid. The right lung is clear. Electronically signed by: Tomi Urena M.D. us Preeti Barr MD IMG XR PROCEDURES Final R esult * CT Abdomen Pelvis W Contrast (06/16/2020 2:36 PM CDT) Anatomical Region Laterality Modality Body N/A Computed Tomogra phy 06/16/2020 2:55 PM CDT Impressions 06/16/2020 2:55 PM CDT 1. ??Rounded mass density in the right breast incompletely included. Clinical correlation recommended. 2. ??Large amount of pericardial fluid. ??Correlation with echocardiogram recommended. 3. ??Distended gallbladder. ??Clinical correlation recommended. 4. ??Fecal impaction. 5. ??Large fluid density mass in the anterior abdominal wall intimately associated with prior surgical site. ??Chronic and stable from prior study. 6. ??Patchy lucencies in the vertebral bodies as previously described and either unchanged or perhaps slightly more prominent or slightly increased. ??Recommended clinical and lab correlation and MRI thoracic and lumbar spine. 7. ??Additional details above. Electronically signed by: Aram Pederson M.D. Narrative 06/16/2020 2:[address] abdomen and pelvis with contrast HISTORY: Abdominal pain. ??Incarcerated hernia. TECHNIQUE: CT abdomen and pelvis was done with contrast 95 mL Optiray 350 intravenously. FINDINGS: Comparison outside CT of 11/08/2019. There is a rounded mass in the right breast incompletely included. Likely a fluid density. ??Clinical correlation recommended. There is atherosclerosis which is especially severe in the coronary arteries. There is large amount of pericardial fluid. ??Correlation with echocardiogram recommended. Mild pleural and parietal opacities at the lung bases. Size of the spleen is normal. Bilateral adrenal glands are normal. No definite solid renal mass. ??No definite hydronephrosis. Mild hepatic steatosis. Abnormally distended gallbladder. ??Consider correlation with sonogram. Moderate colonic. No definite evidence of pancreatitis or pancreatic mass. Fecal impaction with large amount of stool in the rectum. Mild diffuse bladder wall thickening. There is a large well-defined fluid density mass in the anterior abdominal wall intimately associated with prior anterior abdominal wall surgery site. ??Greatest transverse dimension nearly 11 cm across. ??Similar to prior study. Mild diffuse bladder wall thickening. ??Correlation with urinalysis recommended. No definite acute fractures appreciated. There are multiple patchy lucencies throughout the thoracic and lumbar spine of uncertain significance. ??Previously described as well either unchanged or minimally more prominent. ??Slightly different techniques between the 2 CT scans. ??Clinical and lab correlation recommended. ??Consider MRI thoracic and lumbar spine. Procedure Note Aram Pederson MD - 06/16/2020 CT abdomen and pelvis with contrast HISTORY: Abdominal pain. Incarcerated hernia. TECHNIQUE: CT abdomen and pelvis was done with contrast 95 mL Optiray 350 intravenously. FINDINGS: Comparison outside CT of 11/08/2019. There is a rounded mass in the right breast incompletely included. Likely a fluid density. Clinical correlation recommended. There is atherosclerosis which is especially severe in the coronary arteries. There is large amount of pericardial fluid. Correlation with echocardiogram recommended. Mild pleural and parietal opacities at the lung bases. Size of the spleen is normal. Bilateral adrenal glands are normal. No definite solid renal mass. No definite hydronephrosis. Mild hepatic steatosis. Abnormally distended gallbladder. Consider correlation with sonogram. Moderate colonic. No definite evidence of pancreatitis or pancreatic mass. Fecal impaction with large amount of stool in the rectum. Mild diffuse bladder wall thickening. There is a large well-defined fluid density mass in the anterior abdominal wall intimately associated with prior anterior abdominal wall surgery site. Greatest transverse dimension nearly 11 cm across. Similar to prior study. Mild diffuse bladder wall thickening. Correlation with urinalysis recommended. No definite acute fractures appreciated. There are multiple patchy lucencies throughout the thoracic and lumbar spine of uncertain significance. Previously described as well either unchanged or minimally more prominent. Slightly different techniques between the 2 CT scans. Clinical and lab correlation recommended. Consider MRI thoracic and lumbar spine. IMPRESSION: 1. Rounded mass density in the right breast incompletely included. Clinical correlation recommended. 2. Large amount of pericardial fluid. Correlation with echocardiogram recommended. 3. Distended gallbladder. Clinical correlation recommended. 4. Fecal impaction. 5. Large fluid density mass in the anterior abdominal wall intimately associated with prior surgical site. Chronic and stable from prior study. 6. Patchy lucencies in the vertebral bodies as previously described and either unchanged or perhaps slightly more prominent or slightly increased. Recommended clinical and lab correlation and MRI thoracic and lumbar spine. 7. Additional details above. Electronically signed by: Aram Pederson M.D. Preeti Barr MD IMG CT PROCEDURES Final R esult * ESR - Add on lab test (06/16/2020 2:02 PM CDT) Acceptable Yes [facility] Blood specimen (specimen) 06/16/2020 2:02 PM CDT 06/16/2020 2:02 PM CDT Narrative [facility] - 06/16/2020 2:02 PM CDT Name of Test->ESR Preeti Barr MD LAB BLOOD ORDERABLES Debbie l Result Performing Organization Address [facility]/ZIP Co de Phone Number [facility] [address] [employer] [place], [place] [id number] * CRP High sensitivity - Add on lab test (06/16/2020 1:50 PM CDT) Acceptable Yes [facility] Blood specimen (specimen) 06/16/2020 1:50 PM CDT 06/16/2020 2:00 PM CDT Narrative [facility] - 06/16/2020 2:00 PM CDT Name of Test->CRP High sensitivity Preeti Barr MD LAB BLOOD ORDERABLES Debbie l Result [facility] [address] [employer] [place], [place] [id number] * (ABNORMAL) Erythrocyte sedimentation rate (06/16/2020 1:18 PM CDT) Erythrocyte sedimentation rate 95(H) 1 - 30 mm/hr [facility] Blood specimen (specimen) 06/16/2020 1:18 PM CDT 06/16/2020 1:26 PM CDT us Notinfile Unknown LAB BLOOD ORDERABLES Final Res ult Performing Organization Address [facility] de Phone Number [facility] [address] [facility] [employer] [place] [address] * CRP (cardiac risk) (06/16/2020 1:18 PM CDT) Pathologist [facility] hsCRP 85.17 mg/L [facility] Comment: Interpretive data Adult only - values greater than or equal to 10 mg/L are consistent with infection or inflammation. ?? Individuals with evidence of active infection, systemic inflammatory processes, or trauma should not be tested until these conditions have abated. When using HS CRP to assess cardiovascular risk, two measurements should be taken, two weeks apart (averaging results). ?? The CDC/AHA recommended the following HS CRP cut off points (tertiles) for CVD assessment. ? Adult low risk ? <1.0 mg/L Average risk ??1.0 - 3.0 mg/L High Risk ?>3.0 mg/L Current interpretive data was last revised on 2017. Blood specimen (specimen) 06/16/2020 1:18 PM CDT 06/16/2020 1:25 PM CDT us Notinfile Unknown LAB BLOOD ORDERABLES Final Res ult Performing Organization Address [facility] de Phone Number [facility] [address] Department [employer] [place] [address] * eGFR (06/16/2020 1:18 PM CDT) Pathologist [facility] eGFR 86 mL/min/1.7 3 m2 [facility] Comment: Interpretive Data Reference Interval Normal ?>/= 90 mL/min/1.73m2 Mildly decreased* ? 60 - 89 mL/min/1.73m2 Mildly to moderately decreased ?45 - 59 mL/min/1.73m2 Moderately to severely decreased ??30 - 44 mL/min/1.73m2 Severely decreased ?15 - 29 mL/min/1.73m2 Kidney Failure ?< 15 ??mL/min/1.73m2 *Relative to young adult level Estimated glomerular filtration rate is determined by the CKD-EPI equation recommended by the National Kidney Foundation (KDIGO 2012 Clinical Practice Guideline for the Evaluation and Management of Chronic Kidney Disease. Kidney Intnl Suppl Mar 2012;3:1). The CKD-EPI equation should not be used for patients with unstable renal function and has not been validated in children and those over 70. Current interpretive data was last reviewed 2020 Blood specimen (specimen) 06/16/2020 1:18 PM CDT 06/16/2020 1:25 PM CDT us Sam Rosenberg MD LAB BLOOD ORDERABLES Final R esult [facility] [address] [place] [address] * Differential, auto (06/16/2020 1:18 PM CDT) Neutrophil abs 5.4 1.7 - 6.5 K/cumm [facility] Imm gran abs 0.1 0.0 - 0.1 K/cumm [facility] Lymphocyte abs 0.8 0.8 - 3.3 K/cumm [facility] Monocyte abs 0.5 0.2 - 0.8 K/cumm [facility] Eosinophil abs 0.2 0.0 - 0.5 K/cumm [facility] Basophil abs 0.0 0.0 - 0.1 K/cumm [facility] Neutrophil pct 77.2 % [facility] Comment: Interpretive Data Percent cell count reference ranges are not reported, since discordance with absolute values may lead to misinterpretation of CBC data. Current Interpretive Data was last revised on 2017. Imm gran pct 0.9 % [facility] Comment: Interpretive Data Percent cell count reference ranges are not reported, since discordance with absolute values may lead to misinterpretation of CBC data. Current Interpretive Data was last revised on 2017. Lymphocyte pct 11.7 % [facility] Comment: Interpretive Data Percent cell count reference ranges are not reported, since discordance with absolute values may lead to misinterpretation of CBC data. Current Interpretive Data was last revised on 2017. Monocyte pct 7.1 % [facility] Comment: Interpretive Data Percent cell count reference ranges are not reported, since discordance with absolute values may lead to misinterpretation of CBC data. Current Interpretive Data was last revised on 2017. Eosinophil pct 2.5 % [facility] Comment: Interpretive Data Percent cell count reference ranges are not reported, since discordance with absolute values may lead to misinterpretation of CBC data. Current Interpretive Data was last revised on 2017. Basophil pct 0.6 % [facility] Comment: Interpretive Data Percent cell count reference ranges are not reported, since discordance with absolute values may lead to misinterpretation of CBC data. Current Interpretive Data was last revised on 2017. Blood specimen (specimen) 06/16/2020 1:18 PM CDT 06/16/2020 1:26 PM CDT Sam Rosenberg MD LAB BLOOD ORDERABLES Final R esult [facility] [address] [place] [address] * Blood culture Blood (06/16/2020 1:18 PM CDT) Report Final Report: [facility] Blood specimen (specimen) 06/16/2020 1:18 PM CDT 06/16/2020 1:32 PM CDT Narrative [facility] - 06/22/2020 7:00 AM CDT From a different site than #1. us Preeti Barr MD LAB MICROBIOLOGY - GENERA L ORDERABLES Final Result Performing Organization Address [facility]/ZIP Co de Phone Number [facility] [address] [facility] [employer] [place], [place] [phone] * (ABNORMAL) Blood culture Blood (06/16/2020 1:18 PM CDT) Pathologist [facility] Direct Specimen Exam Stain: Gram positive cocci resembling Staph Test result called to and read back by LEANNE DUARTE RN on 06/17/2020 15:12:57 by JERZY [facility] Report Final Report: Coagulase negative Staphylococcus species Isolate may represent contamination. ??Susceptibility not reported. ??Please call the Microbiology Lab if susceptibility testing is clinically indicated. (.) [facility] Blood specimen (specimen) 06/16/2020 1:18 PM CDT 06/16/2020 1:32 PM CDT Preeti Barr MD LAB MICROBIOLOGY - GENERA L ORDERABLES Final Result Performing Organization Address [facility]/ZIP Co de Phone Number [facility] [address] Department [employer] [place], [place] [phone] * Sepsis Lactate w/ Reflex (06/16/2020 1:18 PM CDT) [facility] Sepsis Lactate 1.9 0.7 - 2.0 mmol/L [facility] Blood specimen (specimen) 06/16/2020 1:18 PM CDT 06/16/2020 1:25 PM CDT Preeti Barr MD LAB BLOOD ORDERABLES Debbie l Result Performing Organization Address City/[facility]/ZIP Co de Phone Number [facility] [address] [facility] [employer] [place], [place] [phone] * (ABNORMAL) Comprehensive metabolic panel (06/16/2020 1:18 PM CDT) Pathologist [facility] Sodium 135 135 - 145 mmol/L [facility] Potassium, pl 4.1 3.3 - 4.9 mmol/L [facility] Comment:Hemolyzed; potassium value may be falsely elevated by as much as 0.6 - 1.0 mmol/L. Suggest redraw and reanalysis Chloride 93(L) 97 - 110 mmol/L [facility] CO2 32 22 - 32 mmol/L [facility] Anion gap 10 2 - 15 mmol/L [facility] BUN 15 8 - 25 mg/dL [facility] Creatinine 0.73 0.60 - 1.10 mg/dL [facility] Glucose 228(H) 70 - 199 mg/dL [facility] Comment: Interpretive Data Fasting glucose >/= 126 mg/dl is diagnostic for diabetes. ?? Fasting is defined as no caloric intake for at least 8 hours. Fasting glucose between 100 mg/dl to 125 mg/dl is diagnostic of prediabetes. In a patient with classic symptoms of hyperglycemia or hyperglycemic crisis, a random glucose >/= 200 mg/dl is diagnostic for diabetes. In the absence of unequivocal hyperglycemia, results should be confirmed by repeat testing. The classification and Diagnosis of Diabetes Diabetes Care 2017;40 (Suppl. 1):S11. Current interpretive data was last revised 2017. Calcium 9.1 8.5 - 10.3 mg/dL [facility] Bilirubin, total 0.9 0.1 - 1.2 mg/dL [facility] Protein, pl 7.5 6.5 - 8.5 g/dL [facility] Albumin 3.6 3.5 - 5.0 g/dL [facility] Alk phos 29(L) 40 - 130 Units/L [facility] ALT 29 7 - 45 Units/L [facility] Comment:Moderately Hemolyzed Specimen AST 48(H) 10 - 45 Units/L [facility] Comment:Moderately Hemolyzed Specimen Blood specimen (specimen) 06/16/2020 1:18 PM CDT 06/16/2020 1:25 PM CDT us Preeti Barr MD LAB BLOOD ORDERABLES Debbie marylu Result [facility] [address] Department of [employer] [place] [address] * (ABNORMAL) CBC with auto differential (06/16/2020 1:18 PM CDT) [facility] WBC 6.9 3.8 - 9.9 K/cumm [facility] Hgb 11.4(L) 11.9 - 15.5 g/dL [facility] Hct 33.8(L) 35.6 - 45.5 % [facility] Plt 228 150 - 400 K/cumm [facility] MPV 9.4 9.1 - 12.3 fL [facility] RBC 3.62(L) 3.90 - 5.20 M/cumm [facility] MCV 93.4 81.3 - 96.4 fL [facility] MCH 31.5 27.1 - 33.3 pg [facility] MCHC 33.7 32.3 - 35.7 g/dL [facility] RDW CV 14.6 11.1 - 14.9 % [facility] RDW SD 50.2(H) 35.7 - 48.1 fL [facility] NRBC abs 0.00 0.00 - 0.01 K/cumm [facility] Blood specimen (specimen) 06/16/2020 1:18 PM CDT 06/16/2020 1:26 PM CDT us Preeti Barr MD LAB BLOOD ORDERABLES Debbie l Result [facility] [address] [place] [address] * (ABNORMAL) POCT glucose (06/16/2020 12:58 PM CDT) [facility] Glucose, POC 244(H) 70 - 140 mg/dL [facility] Comment: For Glucose values <35 mg/dl when Hematocrit is >60 mg/dl,the test may not accurately detect significant hypoglycemia,and testing in the Laboratory should be considered if clinically indicated. Blood specimen (specimen) 06/16/2020 12:58 PM CDT 06/16/2020 12:58 PM CDT us Notinfile Unknown LAB POCT ORDERABLES - DEVICE F inal Result [facility] [address] [place] [address] documented in this encounter Visit Diagnoses Diagnosis Gastrointestinal hemorrhage- Primary Unspecified, hemorrhage of gastrointestinal tract Other acute osteomyelitis of left foot (HCC) Encephalopathy acute Unspecified encephalopathy Hyperlipidemia, unspecified hyperlipidemia type Hypertension, unspecified type Type 2 diabetes mellitus with other specified complication, unspecified whether superintendent terminal insulin use (HCC) PVD (peripheral vascular disease) (HCC) Unspecified peripheral vascular disease Gastrointestinal hemorrhage, unspecified gastrointestinal hemorrhage type Anemia Unspecified anemia Hyperlipidemia Other and unspecified hyperlipidemia Hypothyroidism Unspecified hypothyroidism Moderate malnutrition (CMS/HCC) (HCC) PVD (peripheral vascular disease) (HCC) Unspecified peripheral vascular disease Dementia (HCC) Other persistent mental disorders due to conditions classified elsewhere Diabetes mellitus (HCC) Type II or unspecified type diabetes mellitus without mention of complication, not stated as uncontrolled Hypertension Unspecified essential hypertension documented in this encounter Admitting Diagnoses Diagnosis Gastrointestinal hemorrhage Unspecified, hemorrhage of gastrointestinal tract documented in this encounter Administered Medications Inactive Administered Medications - up to 3 most recent administrations Medication Order MAR Action Action Date Dose Rate Site acetaminophen (TYLENOL) tablet 1,000 mg 1,000 mg, oral, Once, On Mon06/19/20 at 1730, For 1 dose, Pre-Op, Indications: Pre-Emptive AnalgesiaIndications:Pre-Emptive Analgesia Given 06/19/2020 4:58 PM CDT 1,000 mg acetaminophen (TYLENOL) tablet 650 mg 650 mg, oral, Every 4 hours PRN, 1st line for pain, Starting on Mon06/16/20 at 2129, Indications: PainIndications:Pain Given 06/21/2020 3:32 AM CDT 650 mg Given 06/20/2020 6:33 AM CDT 650 mg Given 06/20/2020 1:22 AM CDT 650 mg acetaminophen (TYLENOL) tablet 650 mg 650 mg, oral, Every 4 hours PRN, 1st line for pain, fever, fever greater than 38.3 C, Starting on Mon06/21/20 at 2001, Indications: Fever, PainIndications:Fever,Pain Given 06/26/2020 11:27 AM CDT 650 mg Given 06/26/2020 2:31 AM CDT 650 mg Given 06/25/2020 4:37 PM CDT 650 mg albumin 5 % bottle - ADS Override Pull Starting on Mon06/19/20 at 2004, For 1 dose, Created by cabinet override albumin 5 % bottle 12.5 g 12.5 g, intravenous, Once, On Mon06/19/20 at 2045, For 1 dose, Phase I, Infusion rate depends on indication and clinical situation. Suggested initial rate - 120 mL/hr. In patients with normal plasma volume, do not exceed 2 mL/minute, Indications: Other (complete free text reason below)Indications:Other (complete free text reason below) Given 06/19/2020 8:07 PM CDT 12.5 g amLODIPine (NORVASC) tablet 10 mg 10 mg, oral, Daily, First dose on Mon06/18/20 at 1745 Given 06/26/2020 8:54 AM CDT 10 mg Given 06/25/2020 8:24 AM CDT 10 mg Given 06/24/2020 9:04 AM CDT 10 mg cefepime (MAXIPIME) 2,000 mg in sodium chloride 0.9% 100 mL IVPB 2,000 mg, intravenous, at 200 mL/hr, Administer over 30 Minutes, Every 12 hours, First dose (after last modification) on Mon06/16/20 at 1630, Mini-Bag Plus bag, Indications: SepsisIndications:Sepsis New Bag 06/20/2020 4:54 AM CDT 2,000 mg 200 mL /hr New Bag 06/19/2020 3:28 PM CDT 2,000 mg 200 mL/hr New Bag 06/19/2020 5:15 AM CDT 2,000 mg 200 mL/hr dextrose (D10W) 10% bolus 250 mL 250 mL, intravenous, at 1,000 mL/hr, Administer over 15 Minutes, Every 15 min PRN, blood glucose less than 70 mg/dL and UNABLE to swallow/take PO glucose/juice., Starting on Mon06/16/20 at 2129, After treatment for hypoglycemia, recheck BG followed by treatment every 15 minutes until the BG is greater than 100 mg/dL. Then check BG 1 hour post treatment. If BG is less than 100 mg/dL, repeat Q15 minute BG checks and treatment. Call MD for each episode of hypoglycemia., Indications: hypoglycemic disorderIndications:hypoglycemi c disorder dextrose (GLUTOSE) 40 % gel 15 g 15 g, oral, Every 15 min PRN, low blood sugar, blood glucose less than 70 mg/dL, Starting on Mon06/16/20 at 2129, If patient is alert and able to eat/drink, give 15 gm glucose or one juice (4 fluid ounces) NOT ORANGE JUICE. After treatment for hypoglycemia, recheck BG followed by treatment every 15 minutes until the BG is greater than 100 mg/dL. Then check BG 1 hour post-treatment. If BG is less than 100 mg/dL, repeat Q15 minute BG checks and treatment. Call MD for each episode of hypoglycemia. AIRPLANE COVERER STATES GLUTOSE-15 CONTAINS GLUCOSE 40% W/W (50% W/V), Indications: hypoglycemic disorderIndications:hypoglycemi c disorder dimenhyDRINATE (DRAMAMINE) tablet 25 mg 25 mg, oral, Once, On Mon06/19/20 at 1730, For 1 dose, Pre-Op, Indications: Prevention of Nausea and VomitingIndications:Prevention of Nausea and Vomiting Given 06/19/2020 4:58 PM CDT 25 mg enoxaparin (LOVENOX) syringe 40 mg 40 mg, subcutaneous, Daily (for enoxaparin), First dose on Mon06/17/20 at 2100, Indications: VTE ProphylaxisIndications:VTE Prophylaxis Given 06/25/2020 10:35 PM CDT 40 mg Left Lower Abdomen Given 06/24/2020 9:05 PM CDT 40 mg Ri ght Lower Abdomen Given 06/23/2020 10:05 PM CDT 40 mg L eft Lower Abdomen gabapentin (NEURONTIN) capsule 300 mg 300 mg, oral, 2 times daily, First dose on Mon06/16/20 at 2200 Given 06/23/2020 8:12 AM CDT 300 mg Given 06/22/2020 8:00 PM CDT 300 mg Given 06/22/2020 9:26 AM CDT 300 mg gabapentin (NEURONTIN) capsule 300 mg 300 mg, oral, Once, On Mon06/19/20 at 1730, For 1 dose, Pre-Op, Indications: Pre-Emptive AnalgesiaIndications:Pre-Emptive Analgesia Given 06/19/2020 4:57 PM CDT 3 00 mg gabapentin (NEURONTIN) capsule 400 mg 400 mg, oral, 2 times daily, First dose (after last modification) on Mon06/23/20 at 2100 Given 06/26/2020 8:54 AM CDT 400 mg Given 06/25/2020 10:35 PM CDT 400 mg Given 06/25/2020 8:24 AM CDT 400 mg HYDROmorphone (DILAUDID) injection 0.5 mg 0.5 mg, intravenous, Administer over 2 Minutes, Every 4 hours PRN, 2nd line for pain, Starting on 06/20/20 at 1532 Given 06/22/2020 12:06 AM CDT 0.5 m g Given 06/21/2020 4:35 PM CDT 0.5 mg Given 06/21/2020 8:22 AM CDT 0.5 mg insulin glargine (LANTUS) 100 unit/mL injection 7 Units 7 Units, subcutaneous, Every morning, First dose on Mon06/19/20 at 0900, Do not mix with other insulins Given 06/26/2020 8:53 AM CDT 7 Units Left Upper Arm Given 06/25/2020 8:24 AM CDT 7 Units Le ft Lower Abdomen Given 06/24/2020 9:04 AM CDT 7 Units Le ft Upper Arm insulin lispro (HumaLOG, ADMELOG) 100 unit/mL injection 1-2 Units 1-2 Units, subcutaneous, Nightly, First dose on Mon06/16/20 at 2200, Blood Sugar Low Dose PM - PO patients 200 or less No Insulin 201 - 250 1 unit 251 - 299 2 units Greater than 299 Call MD for hyperglycemia management instructions Do NOT hold for NPO status., Indications: Diabetes MellitusIndications:Diabetes Mellitus Given 06/24/2020 9:10 PM CDT 1 Units Right Upper Arm Given 06/19/2020 10:25 PM CDT 1 Units L eft Lower Abdomen Given 06/18/2020 9:01 PM CDT 2 Units Le ft Lower Abdomen insulin lispro (HumaLOG, ADMELOG) 100 unit/mL injection 1-3 Units 1-3 Units, subcutaneous, 3 times daily with meals, First dose on Mon06/17/20 at 0800, Blood Sugar Low Dose meal time - PO patients 175 or less No Insulin 176 - 200 1 unit 201 - 250 2 units 251 - 299 3 units Greater than 299 Call MD for hyperglycemia management instructions Do NOT hold for NPO status., Indications: Diabetes MellitusIndications:Diabetes Mellitus Given 06/23/2020 11:33 AM CDT 1 Units Left Lower Abdomen Given 06/19/2020 6:00 AM CDT 2 Units Le ft Lower Abdomen Given 06/18/2020 4:53 PM CDT 2 Units Le ft Upper Arm ioversoL (OPTIRAY 350) syringe syringe 125 mL 125 mL, intravenous, Once in imaging, contrast, Starting on Mon06/16/20 at 1436, For 1 dose Given 06/16/2020 2:37 PM CDT 95 mL ioversoL (OPTIRAY 350) syringe syringe 125 mL 125 mL, intravenous, Once in imaging, contrast, Starting on Mon06/17/20 at 1809, For 1 dose Given 06/17/2020 6:19 PM CDT 120 mL ioversoL (OPTIRAY 350) syringe syringe 125 mL 125 mL, intravenous, Once in imaging, contrast, Starting on Mon06/21/20 at 2051, For 1 dose Given 06/21/2020 9:17 PM CDT 95 mL Lactated Ringer's (LR) infusion 30 mL/hr, intravenous, Continuous, Starting on Mon06/19/20 at 1730 New Bag 06/19/2020 7:22 PM CDT New Bag 06/19/2020 4:57 PM CDT 30 mL/hr 30 mL/hr levothyroxine (SYNTHROID) tablet 100 mcg 100 mcg, oral, Daily (early AM), First dose (after last modification) on Mon06/19/20 at 0600, Administer on an empty stomach, preferably 30 minutes before breakfast. Take 4 hours apart from antacids, iron and calcium products. Given 06/26/2020 6:13 AM CDT 100 mcg Given 06/25/2020 6:25 AM CDT 100 mcg Given 06/24/2020 5:58 AM CDT 100 mcg levothyroxine (SYNTHROID) tablet 75 mcg 75 mcg, oral, Daily (early AM), First dose on Mon06/17/20 at 0600, Administer on an empty stomach, preferably 30 minutes before breakfast. Take 4 hours apart from antacids, iron and calcium products. Given 06/18/2020 6:21 AM CDT 75 mcg Given 06/17/2020 5:32 AM CDT 75 mcg ondansetron (ZOFRAN) injection 4 mg 4 mg, intravenous, Administer over 2 Minutes, Every 6 hours PRN, nausea, vomiting, if not tolerating PO, Starting on Mon06/16/20 at 2129, Indications: Nausea and VomitingIndications:Nausea and Vomiting Given 06/21/2020 5:38 PM CDT 4 mg ondansetron (ZOFRAN) injection 4 mg 4 mg, intravenous, Administer over 2 Minutes, Every 6 hours PRN, nausea, vomiting, Starting on Mon06/21/20 at 2001, Indications: nausea and vomitingIndications:nausea and vomiting oxyCODONE (ROXICODONE) tablet 5 mg 5 mg, oral, Every 4 hours PRN, 2nd line for pain, Starting on Mon06/16/20 at 2129, May administer 1 hour after 1st line analgesic agent for uncontrolled or increasing pain., Indications: PainIndications:Pain Given 06/25/2020 3:17 PM CDT 5 mg Given 06/25/2020 10:47 AM CDT 5 mg Given 06/24/2020 5:28 PM CDT 5 mg oxyCODONE (ROXICODONE) tablet 5 mg 5 mg, oral, As needed, 1st line for pain, Starting on Mon06/19/20 at 2000, For 2 doses, Phase I, 1st ORAL choice for pain, when the patient is able to tolerate PO medications. May repeat in 1 hour if pain is uncontrolled or increasing after 1st dose., Indications: PainIndications:Pain Given 06/19/2020 8:42 PM CDT 5 mg pantoprazole (PROTONIX) injection 40 mg 40 mg, intravenous, Administer over 2 Minutes, 2 times daily, First dose on Mon06/21/20 at 2100, For IV Push administration for adults- 40 mg vial: add 10 mL of sodium chloride 0.9% to achieve a final concentration of 4 mg/mL, Indications: GI Bleed, Treatment of Non-Bleeding Gastric DisorderIndications:GI Bleed,Treatment of Non-Bleeding Gastric Disorder Given 06/26/2020 8:54 AM CDT 40 mg Given 06/25/2020 10:36 PM CDT 40 mg Given 06/25/2020 8:24 AM CDT 40 mg piperacillin-tazobactam (ZOSYN) 4.5 gram/100 mL in dextrose (premix) 4.5 g 4.5 g, intravenous, at 200 mL/hr, Administer over 30 Minutes, Every 6 hours scheduled, First dose (after last modification) on Mon06/22/20 at 1800, Indications: Abdominal/Pelvic InfectionIndications:Abdominal/Pelvi c Infection New Bag 06/24/2020 5:58 AM CDT 4.5 g 200 mL/hr New Bag 06/24/2020 12:52 AM CDT 4.5 g 200 mL/hr New Bag 06/23/2020 5:14 PM CDT 4.5 g 200 mL/hr tmcynevhkkep-froreikgkr-szvwjyhl (ZOSYN) 3.375 gram/50 mL in dextrose (premix) 3.375 g 3.375 g, intravenous, at 100 mL/hr, Administer over 30 Minutes, Every 6 hours scheduled, First dose on Mon06/21/20 at 2215, Indications: Abdominal/Pelvic InfectionIndications:Abdominal/Pe lvic Infection New Bag 06/22/2020 12:30 PM CDT 3.375 g 100 mL/hr New 06/22/2020 5:45 AM CDT 3.375 g 100 mL/hr 06/21/2020 10:38 PM CDT 3.375 g 100 mL/hr potassium chloride ER (KLOR-CON) extended release tablet 40 mEq 40 mEq, oral, Once, On Mon06/18/20 at 1745, For 1 dose, Do not crush, chew, cut, dissolve, open or otherwise manipulate tablet/capsule. Given 06/18/2020 5:30 PM CDT 40 mEq sodium chloride 0.9% bolus 1,000 mL 1,000 mL, intravenous, Once, On Mon06/16/20 at 1617, For 1 dose New 06/16/2020 4:34 PM CDT 1,000 mL sodium chloride 0.9% flush 0.5-20 mL 0.5-20 mL, intra-catheter, Every 8 hours scheduled, First dose on Mon06/21/20 at 2200, Flush volume based on line type and size. , Indications: FlushingIndications:Flushing Given 06/25/2020 10:36 PM CDT 10 mL Given 06/25/2020 2:17 PM CDT 10 mL Given 06/24/2020 9:05 PM CDT 10 mL sodium chloride 0.9% flush 0.5-20 mL 0.5-20 mL, intra-catheter, As needed, line care, Starting on Mon06/21/20 at 2000, Flush volume based on line type and size. Flush before and after each use. , Indications: FlushingIndications:Flushing sodium chloride 0.9% flush 0.5-20 mL 0.5-20 mL, intra-catheter, Every 8 hours scheduled, First dose on Mon06/21/20 at 2200, Flush volume based on line type and size. , Indications: FlushingIndications:Flushing Given 06/26/2020 6:12 AM CDT 10 mL Given 06/25/2020 10:36 PM CDT 10 mL Given 06/25/2020 2:18 PM CDT 10 mL sodium chloride 0.9% flush 0.5-20 mL 0.5-20 mL, intra-catheter, As needed, line care, Starting on Mon06/21/20 at 2000, Flush volume based on line type and size. Flush before and after each use. , Indications: FlushingIndications:Flushin g sodium chloride 0.9% flush 125 mL 125 mL, intravenous, Once in imaging, line care, Starting on Mon06/16/20 at 1436, For 1 dose Given 06/16/2020 2:37 PM CDT 80 mL sodium chloride 0.9% flush 125 mL 125 mL, intravenous, Once in imaging, line care, Starting on Mon06/17/20 at 1809, For 1 dose Given 06/17/2020 6:19 PM CDT 80 mL sodium chloride 0.9% flush 125 mL 125 mL, intravenous, Once in imaging, line care, Starting on Mon06/21/20 at 2051, For 1 dose Given 06/21/2020 9:17 PM CDT 80 mL sodium chloride 0.9% infusion 75 mL/hr, intravenous, Continuous, Starting on Mon06/21/20 at 2045 Rate/Dose Verify 06/22/2020 8:20 PM CDT 75 mL/hr 75 mL/hr Rate/Dose Verify 06/22/2020 4:00 PM CDT 75 mL/hr 75 mL/h r Rate/Dose Verify 06/22/2020 5:46 AM CDT 75 mL/hr 75 mL/h r sodium chloride 0.9% IVPB 0-250 mL 0-250 mL, intravenous, Once, On Mon06/21/20 at 0715, For 1 dose, Prime blood tubing and administer amount needed to clear line (usually 50-100 mL) after transfusion complete. New Bag 06/21/2020 9:33 AM CDT 250 mL vancomycin 1250 mg/250 mL in sodium chloride 0.9% (premix) 1,250 mg 1,250 mg (rounded from 1,239 mg = 15 mg/kg ? 82.6 kg), intravenous, Administer over 60 Minutes, Once, On Mon06/16/20 at 1617, For 1 dose, Indications: SepsisIndications:Sepsis New Bag 06/16/2020 5:18 PM CDT 1,250 mg vancomycin 1250 mg/250 mL in sodium chloride 0.9% (premix) 1,250 mg 1,250 mg (rounded from 1,239 mg = 15 mg/kg ? 82.6 kg), intravenous, Administer over 60 Minutes, Every 24 hours, First dose on Mon06/17/20 at 1630, Indications: SepsisIndications:Sepsis New Bag 06/19/2020 4:10 PM CDT 1,250 mg New Bag 06/18/2020 5:30 PM CDT 1,250 mg New Bag 06/17/2020 6:35 PM CDT 1,250 mg documented in this encounter Discontinued Medications Medication Sig Discontinue Reason Start Date End Da te aspirin 325 mg tablet Take 1 tablet (325 mg total) by mouth daily Error 11/21/2019 06/16/2020 amLODIPine (NORVASC) 10 mg tablet Error 08/09/2017 06/16/2020 atorvastatin (LIPITOR) 40 mg tablet Take 1 tablet (40 mg total) by mouth nightly Error 11/20/2019 06/16/2020 chlorthalidone 25 mg tablet Take 1 tablet (25 mg total) by mouth daily Error 11/21/2019 06/16/2020 gabapentin (NEURONTIN) 300 mg capsule Take 1 capsule (300 mg total) by mouth 3 (three) times a day Error 11/20/2019 06/16/2020 insulin glargine (Lantus U-100 Insulin) 100 unit/mL injection Inject 20 Units under the skin daily Error 11/20/2019 06/16/2020 insulin lispro (HumaLOG, ADMELOG) 100 unit/mL injectionIndications:D iabetes Mellitus Inject 1-5 Units under the skin 3 (three) times a day with meals Error 11/20/2019 06/16/2020 insulin lispro (HumaLOG, ADMELOG) 100 unit/mL injection Inject 5 Units under the skin 3 (three) times a day with meals Error 11/20/2019 06/16/2020 levothyroxine (SYNTHROID) 50 mcg tablet Take 1 tablet (50 mcg total) by mouth emulsion operator before breakfast Error 11/21/2019 06/16/[address] (PROTONIX) 40 mg EC tabletIndications:Stre ss Ulcer Prophylaxis Take 1 tablet (40 mg total) by mouth daily Error 11/21/2019 06/16/2020 gabapentin (NEURONTIN) 300 mg capsule Take 300 mg by mouth 2 (two) times a day Stop Taking at Discharge 06/26/2020 hydroCHLOROthiazide (HYDRODIURIL) 12.5 mg tablet Take 12.5 mg by mouth daily Stop Taking at Discharge 06/26/2020 potassium chloride ER (potassium chloride ER) 10 mEq CR tablet Take 10 mEq by mouth 2 (two) times a day Stop Taking at Discharge 06/26/2020 traMADoL (ULTRAM) 50 mg tablet Take 50 mg by mouth every 6 (six) hours as needed for pain Stop Taking at Discharge 06/26/2020 levothyroxine (SYNTHROID) 75 mcg tablet Take 75 mcg by mouth emulsion operator before breakfast Stop Taking at Discharge 06/26/2020 documented as of this encounter Historical Medications * This list may reflect changes made after this encounter. atorvastatin (LIPITOR) 40 mg tablet Take 1 tablet (40 mg total) by mouth daily amLODIPine (NORVASC) 10 mg tablet Take 1 tablet (10 mg total) by mouth daily levothyroxine (SYNTHROID) 75 mcg tablet Take 75 mcg by mouth emulsion operator before breakfast 04/16/202 1 traMADoL (ULTRAM) 50 mg tablet Take 50 mg by mouth every 6 (six) hours as needed for pain 1 potassium chloride ER (potassium chloride ER) 10 mEq CR tablet Take 10 mEq by mouth 2 (two) times a day 1 hydroCHLOROthiaz negrita (HYDRODIURIL) 12.5 mg tablet Take 12.5 mg by mouth daily 1 gabapentin (NEURONTIN) 300 mg capsule Take 300 mg by mouth 2 (two) times a day 1 added in this encounter Active and Recently Administered Medications Times are shown in CDT. Scheduled Medication Order 06/24/2020 06/25/2020 06/26/2020 amLODIPine (NORVASC) tablet 10 mg 10 mg, oral, Daily, First dose on Mon06/18/20 at 1745 0904 (Given - Provider: Yaquelin Telles RN) 0824 (Given - Provider: Yaquelin Telles, SPENCER) 0854 (Given - Provider: Jennifer Todd, SPENCER) enoxaparin (LOVENOX) syringe 40 mg 40 mg, subcutaneous, Daily (for enoxaparin), First dose on Mon06/17/20 at 2100, Indications: VTE Prophylaxis 2104 (Given - Provider: Evelin Reaves RN) 2234 (Given - Provider: Gabriela Rader, SPENCER) gabapentin (NEURONTIN) capsule 400 mg 400 mg, oral, 2 times daily, First dose (after last modification) on Mon06/23/20 at 2100 0905 (Given - Provider: Yaquelin Telles RN)210 (Given - Provider: Evelin Reaves RN) 0824 (Given - Provider: Yaquelin Telles, SPENCER)223 (Given - Provider: Gabriela Rader, SPENCER) 0854 (Given - Provider: Jennifer Todd, SPENCER) insulin glargine (LANTUS) 100 unit/mL injection 7 Units 7 Units, subcutaneous, Every morning, First dose on Mon06/19/20 at 0900, Do not mix with other insulins 0904 (Given - Provider: Yaquelin Telles RN) 0824 (Given - Provider: Yaquelin Telles RN) 0853 (Given - Provider: Jennifer Todd RN) insulin lispro (HumaLOG, ADMELOG) 100 unit/mL injection 1-2 Units 1-2 Units, subcutaneous, Nightly, First dose on Mon06/16/20 at 2200, Blood Sugar Low Dose PM - PO patients 200 or less No Insulin 201 - 250 1 unit 251 - 299 2 units Greater than 299 Call MD for hyperglycemia management instructions Do NOT hold for NPO status., Indications: Diabetes Mellitus 211 (Given - Provider: Evelin Reaves RN - Comment: BG 202) 2235 (Not Given - Provider: Gabriela Rader RN - Reason: Order parameters not met - Comment: blood sugar 170) insulin lispro (HumaLOG, ADMELOG) 100 unit/mL injection 1-3 Units 1-3 Units, subcutaneous, 3 times daily with meals, First dose on Mon06/17/20 at 0800, Blood Sugar Low Dose meal time - PO patients 175 or less No Insulin 176 - 200 1 unit 201 - 250 2 units 251 - 299 3 units Greater than 299 Call MD for hyperglycemia management instructions Do NOT hold for NPO status., Indications: Diabetes Mellitus 0757 (Not Given - Provider: Yaquelin Telles RN - Reason: Order parameters not met)1156 (Not Given - Provider: Yaquelin Telles RN - Reason: Order parameters not met)1716 (Not Given - Provider: Yaquelin Telles RN - Reason: Order parameters not met) 0641 (Not Given - Provider: Kenny Orourke RN - Reason: Order parameters not met - Comment: [phone] (Not Given - Provider: Yaquelin Telles RN - Reason: Order parameters not met)1641 (Not Given - Provider: Yaquelin Telles RN - Reason: Order parameters not met) 0612 (Not Given - Provider: Gabriela Rader RN - Reason: Order parameters not met - Comment: blood sugar [phone] (Not Given - Provider: Jennifer Todd RN - Reason: Order parameters not met) levothyroxine (SYNTHROID) tablet 100 mcg 100 mcg, oral, Daily (early AM), First dose (after last modification) on Mon06/19/20 at 0600, Administer on an empty stomach, preferably 30 minutes before breakfast. Take 4 hours apart from antacids, iron and calcium products. 0558 (Given - Provider: Evelin Reaves RN) 0625 (Given - Provider: Kenny Orourke, SPENCER) 0613 (Given - Provider: Gabriela Rader, SPENCER) pantoprazole (PROTONIX) injection 40 mg 40 mg, intravenous, Administer over 2 Minutes, 2 times daily, First dose on Mon06/21/20 at 2100, For IV Push administration for adults- 40 mg vial: add 10 mL of sodium chloride 0.9% to achieve a final concentration of 4 mg/mL, Indications: GI Bleed, Treatment of Non-Bleeding Gastric Disorder 09 (Given - Provider: Yaquelin Telles RN)210 (Given - Provider: Evelin Reaves RN) 08 (Given - Provider: Yaquelin Telles, SPENCER)223 (Given - Provider: Gabriela Rader RN) 0854 (Given - Provider: Jennifer Todd RN) piperacillin-tazobactam (ZOSYN) 4.5 gram/100 mL in dextrose (premix) 4.5 g (CANCELED) 4.5 g, intravenous, at 200 mL/hr, Administer over 30 Minutes, Every 6 hours scheduled, First dose (after last modification) on Mon06/22/20 at 1800, Indications: Abdominal/Pelvic Infection 0052 (New Bag - Provider: Evelin Reaves RN)0558 (New Bag - Provider: Evelin Reaves RN) sodium chloride 0.9% flush 0.5-20 mL 0.5-20 mL, intra-catheter, Every 8 hours scheduled, First dose on Mon06/21/20 at 2200, Flush volume based on line type and size. , Indications: Flushing 0603 (Given - Provider: Evelin Reaves RN)1425 (Given - Provider: Yaquelin Telles RN)210 (Given - Provider: Evelin Reaves, SPENCER) 06 (Not Given - Provider: Kenny Orourke RN - Reason: Other)1417 (Given - Provider: Yaquelin Telles RN)2236 (Given - Provider: Gabriela Rader, SPENCER) 0613 (Not Given - Provider: Gabriela Rader RN - Reason: Other)1400 (Due) sodium chloride 0.9% flush 0.5-20 mL 0.5-20 mL, intra-catheter, Every 8 hours scheduled, First dose on Mon06/21/20 at 2200, Flush volume based on line type and size. , Indications: Flushing 0603 (Given - Provider: Evelin Reaves RN)1425 (Given - Provider: Yaquelin Telles, SPENCER)2105 (Given - Provider: Evelin Reaves RN) 0625 (Given - Provider: Kenny Orourke RN)1418 (Given - Provider: Yaquelin Telles RN)2236 (Given - Provider: Gabriela Rader RN) 0612 (Given - Provider: Gabriela Rader RN)1400 (Due) PRN Medication Order 06/24/2020 06/25/2020 06/26/2020 acetaminophen (TYLENOL) tablet 650 mg 650 mg, oral, Every 4 hours PRN, 1st line for pain, fever, fever greater than 38.3 C, Starting on Mon06/21/20 at 2001, Indications: Fever, Pain 0508 (Given - Provider: Evelin Reaves RN)1625 (Given - Provider: Yaquelin Telles RN)2104 (Given - Provider: Evelin Reaves RN) 0254 (Given - Provider: Kenny Orourke, SPENCER)1637 (Given - Provider: Yaquelin Telles, SPENCER) 0231 (Given - Provider: Gabriela Rader RN)1127 (Given - Provider: Jennifer Todd RN) dextrose (D10W) 10% bolus 250 mL(Linked Group 1) 250 mL, intravenous, at 1,000 mL/hr, Administer over 15 Minutes, Every 15 min PRN, blood glucose less than 70 mg/dL and UNABLE to swallow/take PO glucose/juice., Starting on Mon06/16/20 at 2129, After treatment for hypoglycemia, recheck BG followed by treatment every 15 minutes until the BG is greater than 100 mg/dL. Then check BG 1 hour post treatment. If BG is less than 100 mg/dL, repeat Q15 minute BG checks and treatment. Call MD for each episode of hypoglycemia., Indications: hypoglycemic disorder dextrose (GLUTOSE) 40 % gel 15 g(Linked Group 1) 15 g, oral, Every 15 min PRN, low blood sugar, blood glucose less than 70 mg/dL, Starting on Mon06/16/20 at 2128, If patient is alert and able to eat/drink, give 15 gm glucose or one juice (4 fluid ounces) NOT ORANGE JUICE. After treatment for hypoglycemia, recheck BG followed by treatment every 15 minutes until the BG is greater than 100 mg/dL. Then check BG 1 hour post-treatment. If BG is less than 100 mg/dL, repeat Q15 minute BG checks and treatment. Call MD for each episode of hypoglycemia. AIRPLANE COVERER STATES GLUTOSE-15 CONTAINS GLUCOSE 40% W/W (50% W/V), Indications: hypoglycemic disorder glucagon injection 1 mg 1 mg, intramuscular, Administer over 1 Minutes, Every 30 min PRN, low blood sugar, blood glucose less than 70 mg/dL AND no IV access AND unable to take PO glucose/jiuce., Starting on Mon06/16/20 at 2128, After Glucagon is administered, position patient on side if possible to avoid aspiration. Obtain IV access. Follow glucagon treatment with glucose treatment or IV dextrose. After treatment for hypoglycemia, recheck BG followed by treatment every 15 minutes until the BG is greater than 100 mg/dL. Then check BG 1 hour post treatment. If BG is less than 100 mg/dL, repeat Q15 minute BG checks and treatment. Call MD for each episode of hypoglycemia. Reconstitute 1 mg vial with 1 mL SWFI. Use immediately following reconstitution., Indications: Hypoglycemia HYDROmorphone (DILAUDID) injection 0.5 mg 0.5 mg, intravenous, Administer over 2 Minutes, Every 4 hours PRN, 2nd line for pain, Starting on 06/20/20 at 1532 ondansetron (ZOFRAN) injection 4 mg 4 mg, intravenous, Administer over 2 Minutes, Every 6 hours PRN, nausea, vomiting, Starting on 06/21/20 at 2001, Indications: nausea and vomiting oxyCODONE (ROXICODONE) tablet 5 mg 5 mg, oral, Every 4 hours PRN, 2nd line for pain, Starting on Mon06/16/20 at 2128, May administer 1 hour after 1st line analgesic agent for uncontrolled or increasing pain., Indications: Pain 0051 (Given - Provider: Evelin Reaves RN)0904 (Given - Provider: Yaquelin Telles, RN)1316 (Given - Provider: Yaquelin Telles, RN)1728 (Given - Provider: Yaquelin Telles, SPENCER) 1047 (Given - Provider: Yaquelin Telles, RN)1517 (Given - Provider: Yaquelin Telles RN) sodium chloride 0.9% flush 0.5-20 mL 0.5-20 mL, intra-catheter, As needed, line care, Starting on Mon06/21/20 at 2000, Flush volume based on line type and size. Flush before and after each use. , Indications: Flushing sodium chloride 0.9% flush 0.5-20 mL 0.5-20 mL, intra-catheter, As needed, line care, Starting on Mon06/21/20 at 2000, Flush volume based on line type and size. Flush before and after each use. , Indications: Flushing Linked Groups Order Group 1: dextrose (GLUTOSE) 40 % gel 15 gJump to med 15 g, oral, Every 15 min PRN, low blood sugar, blood glucose less than 70 mg/dL, Starting on Mon06/16/20 at 2128, If patient is alert and able to eat/drink, give 15 gm glucose or one juice (4 fluid ounces) NOT ORANGE JUICE. After treatment for hypoglycemia, recheck BG followed by treatment every 15 minutes until the BG is greater than 100 mg/dL. Then check BG 1 hour post-treatment. If BG is less than 100 mg/dL, repeat Q15 minute BG checks and treatment. Call MD for each episode of hypoglycemia. AIRPLANE COVERER STATES GLUTOSE-15 CONTAINS GLUCOSE 40% W/W (50% W/V), Indications: hypoglycemic disorder Or dextrose (D10W) 10% bolus 250 mLJump to med 250 mL, intravenous, at 1,000 mL/hr, Administer over 15 Minutes, Every 15 min PRN, blood glucose less than 70 mg/dL and UNABLE to swallow/take PO glucose/juice., Starting on Mon06/16/20 at 2129, After treatment for hypoglycemia, recheck BG followed by treatment every 15 minutes until the BG is greater than 100 mg/dL. Then check BG 1 hour post treatment. If BG is less than 100 mg/dL, repeat Q15 minute BG checks and treatment. Call MD for each episode of hypoglycemia., Indications: hypoglycemic disorder documented in this encounter Orders Medications Ordered That Jesus ht Not Have Been Administered Count Last Ordered Date First Ordered Date ondansetron (ZOFRAN) injection 4 mg 2 06/2106/19/2020 sodium chloride 0.9% flush 0.5-20 mL 3 06/1106/19/2020 acetaminophen (TYLENOL) 500 mg tablet - ADS Override Pull 1 06/19/2020 albuterol 2.5 mg /3 mL (0.08 3 %) nebulizer solution 2.5 mg 1 06/19/2020 dimenhyDRINATE (DRAMAMINE) 5 0 mg tablet - ADS Override Pull 1 06/19/2020 diphenhydrAMINE (BENADRYL) i njection 12.5 mg 1 06/19/2020 fentaNYL (SUBLIMAZE) preserv ative free injection 25 mcg 1 06/19/2020 gabapentin (NEURONTIN) 300 m g capsule - ADS Override Pull 1 06/19/2020 haloperidol (HALDOL) injection 1 mg 1 06/19 HYDROmorphone (DILAUDID) injection 0.4 mg 1 06/19/2020 insulin lispro (HumaLOG, ADM ELOG) 100 unit/mL injection 1-5 Units 1 06/19/2020 labetaloL (NORMODYNE,TRANDAT E) injection 5 mg 1 06/19/2020 lidocaine PF (XYLOCAINE) 10 mg/mL (1 %) preservative free injection 2-10 mg 1 06/19/2020 meperidine (DEMEROL) preserv ative free injection 12.5 mg 1 06/19/2020 naloxone (NARCAN) 0.4 mg/mL injection 0.04-0.4 mg 1 06/19/2020 racepinephrine (ASTHMANEFRIN ) 2.25 % nebulizer solution 0.5 mL 1 06/19/2020 sodium chloride 0.9% irrigation 1 cefepime (MAXIPIME) 1,000 mg in sodium chloride 0.9% 100 mL IVPB 1 06/16/2020 dextrose (D10W) 10% bolus 250 mL 1 06/17/19 21 dextrose (GLUTOSE) 40 % gel 15 g 1 06/17/19 21 glucagon injection 1 mg 1 06/16/2020 ondansetron ODT (ZOFRAN-ODT) disintegrating tablet 4 mg 1 06/16/2020 polyethylene glycol (MIRALAX) packet 17 g 1 06/16/2020 Lab Orders Without Results Count Last Ordered D ate First Ordered Date POCT GLUCOSE DEVICE 37 06/26/2020 06/17/19 21 Diet Count Last Ordered Date First Orde red Date ADULT DISCHARGE DIET 1 06/26/2020 Nursing Count Last Ordered Date First Orde red Date DISCHARGE CALL PROVIDER 1 06/26/2020 DISCHARGE INSTRUCTIONS 1 06/26/2020 FOLLOW UP WITH ESTABLISHED PROVIDER 1 06/26 NURSING COMMUNICATION 2 06/22/20202020 INSERT KAPLAN CATHETER 1 06/21/2020 MAINTAIN IV ACCESS 1 06/21/2020 VERIFY INFORMED CONSENT 1 06/21/2020 WEIGH PATIENT 1 06/21/2020 STRAIGHT CATH 1 06/20/2020 CARDIO RESPIRATORY MONITORING 1 06/16/2020 CONTINUOUS PULSE OXIMETRY 1 06/16/2020 Consult Count Last Ordered Date First Orde red Date IP CONSULT TO GASTROENTEROLOGY 1 06/21/2020 IP CONSULT TO PODIATRY 1 06/17/2020 IP CONSULT TO SOCIAL WORK 1 06/17/2020 IV Count Last Ordered Date First Orde red Date SALINE LOCK IV 1 06/16/2020 Transfer Count Last Ordered Date First Orde red Date TRANSFER PATIENT 1 06/22/2020 CORE MEASURES Count Last Ordered Date First Ord ered Date REASON FOR NO VTE PROPHYLAXI S - HOSPITAL ADMISSION - MEDICATIONS 2 06/21/2020 06/16/2020 ADT Patient Update Count Last Ordered Date Firs t Ordered Date ED IP DECISION TO ADMIT 1 06/16/2020 documented in this encounter Additional Health Concerns 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 07/08/2019 10/28/2020 5:00 AM C DT COVID: Suspected 06/16/2020 06/16/2020 06/16/2020 6:31 PM CDT documented as of this encounter Care Teams Non Emergency Services Ambulance Driver Relationship Specialty Start Date End Date Zeke Puente MD [address] [place] [id number] PCP - General 12/02/18 Damon Swanson DO [address] [place] [id number] Medical Oncologist/Gas Pumping Station Helper Hematology and Oncology 10/25/17 Karl Smith Jr., MD [address] [place] [id number] Surgeon General Surgery 11/07/19 Arley Peña MD [address] [place] [address] Surgeon General Surgery 06/26/20 documented as of this encounter
--- OUTSIDE RECORDS SUMMARY | 2024-02-26 21:36 | XMS_ITS | Referral Summary ---
Author Organization [facility] Address [address] [place] [address] Phone Care Team Providers Care Correctional Supply Supervisor Name Role Phone Damon SwansonTesha DO Unavailable Zeke Puente MD Primary Care Provider [phone] Sarah Baldwin MD, Karl Romero Unavailable [phone] Arley Peña MD Unavailable [phone] Allergies Active Allergy Reactions Criticality Noted Date Comments Codeine Phosphate Nausea & Vomiting Low 10/08/2012 Medications amLODIPine (NORVASC) 10 mg tablet Take 1 tablet (10 mg total) by mouth daily Active atorvastatin (LIPITOR) 40 mg tablet Take 1 tablet (40 mg total) by mouth daily Active levothyroxine (SYNTHROID) 100 mcg tablet Take 1 tablet (100 mcg total) by mouth actionscript developer before breakfast 30 tablet 1 1 Active [...] (06/21/2020): Added automatically from request for surgery [id number] Sepsis 11/20/2019 Acute hematogenous osteomyelitis of right foot 0 11/20/2019 PVD (peripheral vascular disease) 11/20/2019 Anemia 11/20/2019 COVID-19 11/20/2019 Hypothyroidism 11/20/2019 Hyperlipidemia 11/20/2019 Pressure injury of sacral region, stage 4 2019 Moderate malnutrition (CMS/HCC) 11/07/2019 Malignant neoplasm of upper- 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, estrogen receptor negative 11/13/2017 Dementia Diabetes mellitus Hypertension Social History Tobacco Use Types Packs/Day Years [...] often do you attend chur ch or mormonism services? Never 06/27/2022 Do you belong to any clubs o r organizations such as anglican groups, unions, fraternal or athletic groups, or [...] on file Legal Sex Female 12:30 PM DIRECTOR FRAUD Gender Identity Not on file Sexual Orientation [...] 06/27/2022 5:02 PM CDT Plan of Treatment Not on file Procedures Procedure Name Priority Date/Time Associated Diagnosis [...] LAB BLOOD ORDERABLE S Final Result [facility] Department [place] [address] * (ABNORMAL) Hemoglobin A1c (06/18/2020 5:43 AM CDT) Hgb A1C 8.0(H) 4.0 - 5.6 % [facility] Estimated Average Glucose 183 mg/dL [facility] Comment: The ADA recommends reporting an estimated Average Glucose (eAG) with all Hemoglobin A1c results using the equation derived from a study of 507 normal and diabetic adults. ??Minority populations were underrepresented and children were not included. ?? (Diabetes Care 31:5452-2769, 2007). ??The eAG is not equivalent to a fasting glucose. Blood specimen (specimen) 06/18/2020 5:43 AM CDT 06/18/2020 6:23 AM CDT Summer Anguiano MD LAB BLOOD ORDERABLES Final Result Performing Organization Address [facility]/State/ZIP Co de Phone Number [facility] [address] Department [place] [address] * Screening Mammogram Bilateral W Zac (12/26/2016 [...] by: Edwar Deng M.D., md/:12/26/2016 11:34:53 ?? District Customs Director: Layne Roger)(M), [facility] letter sent: Normal Exam ?? Reading location: [facility] BI-RADS: 2 Benign [EOD] Narrative [...] mammogram, 11/07/2014 mammogram, and 10/30/2013 mammogram - [facility]. ?? BREAST TISSUE: The tissue of both [...] 12/18/2015 mammogram,11/07/2014 mammogram, and 10/30/2013 mammogram - [facility]. BREAST TISSUE: The tissue of both breasts [...] signed by: Edwar Deng M.D., md/:12/26/2016 11:34:53 District Customs Director: Layne Iniguez RT (R)(M), [facility] letter sent: Normal Exam Reading location: [facility] BI-RADS: 2 Benign [EOD] Damon Swanson DO IMG MAMMO PROCEDURES Final R esult from Last 3 Months or Most Recently Relevant to Health Maintenance Insurance MEDICARE [facility] MEDICARE MEDICARE [facility] Advance Directives For more information, please contact: [phone] Documents on File Type Date Recorded Patient Wool Puller Expl anation ADVANCE DIRECTIVE 09/04/2023 2:51 PM POLST - Phys Order for PT Preferences ADVANCE DIRECTIVE 02/28/2019 12:00 AM [facility] FINANCIAL/MEDICAL * Full Code (Latest Code Status [...] 12:51 AM 11/20/2019 10:35 PM Care Teams Correctional Supply Supervisor Relationship Specialty Start Date End Date Zeke Puente MD [address] [place] [address] PCP - General 12/02/18 Damon Swanson DO [address] [place] [address] Medical Oncologist/Telephone Instrument Supervisor Hematology and Oncology 10/25/17 Karl Smith Jr., MD [address] [place] [address] Surgeon General Surgery 11/07/19 Arley Peña MD [address] [place] [address] Surgeon General Surgery 06/26/20
--- OUTSIDE RECORDS SUMMARY | 2024-02-26 21:36 | XMS_ITS | Encounter Summary ---
Author Organization [facility] Address [address] [place] [address] Care Team Providers Care Labor Standards Director Name Role Phone Damon Swanson DO Unavailable [phone] Zeke Puente MD Primary Care Provider Sarah Baldwin MD, Karl Romero Unavailable Arley Peña MD Unavailable [phone] Encounter Details Date Type Department Care Team (Late st Contact Info) Description 12/08/2021 Orders Only [facility] Cardiology [address] [facility] [address] [place] [address] Beto Ortez MD [address] [address] Social History Tobacco Use Types [...] declined 06/17/2020 How often do you attend worship or christianity serv ices? Patient declined 06/17/2020 Do you belong to any clubs o r organizations such as worship groups, unions, fraternal or athletic groups, or [...] on file Legal Sex Female 12:30 PM SWEATER DESIGNER Gender Identity Not on file Sexual Orientation Not on file documented as of this encounter Plan of Treatment Not on file documented as of this encounter Procedures Procedure Name Priority Date/Time Associated Diagnosis Comments CARDIOLOGY DOCUMENT SCAN Routine 12/08/2021 documented in this encounter Results * Cardiology Document Scan (12/08/2021) Anatomical Region Laterality Modality Other [facility] Eliezer Ortez MD CV CARDIAC SERVICES PRO CEDURES Final Result documented in this encounter Visit Diagnoses Not on filedocumented in this encounter Care Teams Labor Standards Director Relationship Specialty Start Date End Date Zeke Puente MD [address] [place] [address] PCP - General 12/02/18 Damon Swanson DO [address] [place] [address] Medical Oncologist/Integration Software Developer Hematology and Oncology 10/25/17 Karl Smith Jr., MD [address] [place] [id number] Surgeon General Surgery 11/07/19 Arley Peña MD [address] [place] [id number] Surgeon General Surgery 06/26/20 documented as of this encounter
--- OUTSIDE RECORDS SUMMARY | 2024-02-26 21:36 | XMS_ITS | Encounter Summary ---
Author Organization [facility] Address [address] [facility] [address] [place] [address] Care Team Providers Care Ski Patrol Officer Name Role Phone Damon Swanson DO Unavailable Zeke Puente MD Primary Care Provider Sarah Baldwin MD, Karl Romero Unavailable [phone] Arley Peña MD Unavailable [phone] Encounter Details Date Type Department Care Team (Late st Contact Info) Description 12/06/2021 Orders Only [facility] Cardiology [address] [place] [address] Bud Mustafa MD [address] [facility] [address] [facility] [address] [place], [place] [id number] Social History Tobacco Use Types Packs/Day Years [...] declined 06/17/2020 How often do you attend pentecostal or adventism serv ices? Patient declined 06/17/2020 Do you belong to any clubs o r organizations such as pentecostal groups, unions, fraternal or athletic groups, or [...] on file Legal Sex Female 12:30 PM WARDROBE CUSTODIAN Gender Identity Not on file Sexual Orientation [...] on filedocumented in this encounter Care Teams Ski Patrol Officer Relationship Specialty Start Date End Date Zeke Puente MD [address] [place] [address] PCP - General 12/02/18 Damon Swanson DO [address] [place] [address] Medical Oncologist/Product Test Engineer Hematology and Oncology 10/25/17 Karl Smith Jr., MD [address] [place] [id number] Surgeon General Surgery 11/07/19 Arley Peña MD [address] [place] [address] Surgeon General Surgery 06/26/20 documented as of this encounter
--- OUTSIDE RECORDS SUMMARY | 2024-02-26 21:36 | XMS_ITS | Encounter Summary ---
Author Organization [facility] Healthcare Address [address] [place] [address] Care Team Providers Care Linux Solaris Administrator Name Role Phone Damon Swanson DO Unavailable Zeke Puente MD Primary Care Provider Sarah Baldwin MD, Karl N. Unavailable Arley Peña MD Unavailable [phone] Reason for Visit * Reason Comments Vaginal Discharge * Auth/Cert (Routine) Specialty Diagnoses / Procedures Referred By Contac t Referred To Contact Diagnoses Hypoglycemia Urinary tract infection without hematuria, site unspecified Anemia, unspecified type Procedures NA Referral ID Status Reason Start Date Expiration Date Visits Re quested Visits Authorized [id number] 1 1 Encounter Details Date Type Department Care Team (Latest Contact Info) Description 06/25/2022 2:07 PM CDT - 06/28/2022 5:20 PM CDT Hospital Encounter [address] [id number] Max Iverson MD [address] [place] [id number] Elias Abraham MD [address] [place] [id number] Hypoglycemia (Primary Dx); Urinary tract infection without hematuria, site unspecified; Anemia, unspecified type Discharge Disposition: Discharge to SNF Social [...] often do you attend chur ch or gnosticism services? Never 06/27/2022 Do you belong to any clubs o r organizations such as quaker groups, unions, fraternal or athletic groups, or [...] making you feel afraid or unsafe? 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 Gender Identity Not on file Sexual Orientation Not on file documented as of this encounter Last Filed Vital Signs Vital Sign Reading Time Taken Comments Blood Pressure 115/67 06/28/2022 3:00 PM CDT Pulse 71 06/28/2022 3:00 PM CDT Temperature 36.6 ??C (97.8 ??F) 06/28/2022 3 :00 PM CDT Respiratory Rate 22 06/28/2022 3:00 PM CDT Oxygen Saturation 98% 06/28/2022 3:0 0 PM CDT Inhaled Oxygen Concentration - - Weight 72.5 kg (159 lb 12.8 oz) 023 5:02 PM CDT Height 94 cm (3' 1 ) 06/27/2022 5:02 PM CDT pt barbie AKA Body Mass Index 82.07 06/27/2022 5:02 PM CDT documented in this encounter Discharge Summaries * Elias Abraham MD - 06/28/2022 2:20 PM CDT Inpatient Discharge Summary BRIEF OVERVIEW Admitting Provider: Max Iverson MD Discharge Provider: Elias Abraham MD Primary Care Physician at Discharge: Zeke Puente MD [phone] Admission Date: 06/25/2022 Discharge Date: 06/28/2022 Admission Location: [facility] Problems/Diagnoses: Principal Problem: Hypoglycemia Resolved Problems: No resolved hospital problems. DETAILS OF HOSPITAL STAY Presenting Problem/History of Present Illness: 67 yr old female with past medical history significant for Hypertension, DM, Dementia, bilateral AKA presents to hospital from [place] with hypoglycemia. According to report from [facility], patient is having hypoglycemic events and last night her blood sugar was in 40s, today morning it was in 200s so they gave the lantus 20 units and patient was in hypoglycemia again. Patient was sent to ER. Patient was found to have UTI and generalised anasarca and patient was admitted to hospital. On evaluation, patient very sleepy and not answering much question. Hospital Course: Patient is 67 yo female [facility] resident admitted with altered mental status secondary to hypoglycemia. Symptoms resolved and mental status back to baseline. She was transfused a unit of blood for hemoglobin less than 7. Iron studies were consistent with iron deficiency anemia. Patient was prescribed ferrous sulfate upon discharge. Patient is been [facility] to the [facility] Active Issues Requiring Follow-up: Test Results Pending at Discharge: Pending Labs Order Current Status Crossmatch In process Operative Procedures Performed: Other Procedures: Pertinent Test Results: See notes Discharge Details Physical Exam at Discharge: Discharge Condition: stable Pulse: 71 Resp: 20 BP: 118/64 Temp: 36.7 ??C (98 ??F) Weight: 72.5 kg (159 lb 12.8 oz) Pertinent Exam Findings at Discharge: General: Pleasant, no acute distress Chest: Clear to auscultation CVS:S1S2 regular, no galop Abdomen: Obese, +bs Extremities: Bilateral above knee amputations Skin: Sacral skin breakdown VELVET CUTTER: No 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 Discharge Disposition: Discharge to SNF Code Status at Discharge: Full Discharge Instructions: Activity Instructions Discharge activity: Resume normal activity Diet Instructions Adult Discharge Diet Diet Type: Return to previous diet Call inpatient dietitian office at [facility] with any nutrition-related questions or concerns ([phone]). Thank you! Discharge Medications: Current Medications TAKE these medications amLODIPine 10 mg tablet Take 1 tablet (10 mg total) by mouth daily Commonly known as: NORVASC atorvastatin 40 mg tablet Take 1 tablet (40 mg total) by mouth daily Commonly known as: LIPITOR Entresto 24-26 mg tablet Take 1 tablet by mouth 2 (two) times a day Generic drug: sacubitriL-valsartan ferrous sulfate 325 mg (65 mg of elemental iron) tablet Take 1 tablet (325 mg total) by mouth daily with breakfast For: anemia from inadequate iron furosemide 40 mg tablet Take 1 tablet (40 mg total) by mouth daily Commonly known as: LASIX gabapentin 300 mg capsule Take 1 capsule (300 mg total) by mouth 3 (three) times a day Commonly known as: NEURONTIN Jardiance 10 mg tablet Take 1 tablet (10 mg total) by mouth daily Generic drug: empagliflozin levothyroxine 100 mcg tablet Take 1 tablet (100 mcg total) 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 Commonly known as: SYNTHROID NovoLOG 100 unit/mL vial for injection Generic drug: insulin aspart omeprazole 20 mg capsule Take 1 capsule (20 mg total) by mouth daily Commonly known as: PriLOSEC oxyCODONE 5 mg immediate release tablet Take 1 tablet (5 mg total) by mouth every 4 (four) hours as needed for pain for up to 12 doses For: pain Commonly known as: ROXICODONE potassium chloride ER 10 mEq CR tablet Take 1 tablet/capsule (10 mEq total) by mouth daily Commonly known as: KLOR-CON Outpatient Follow-Up: documented in this encounter Discharge Instructions * Discharge Instr - Diet* Nunu Alcaraz RD - 06/27/2022 3:19 PM CDT Call inpatient dietitian office at [facility] in [place] with any nutrition-related questions or concerns ([phone]). Thank you! * Attachments The following attachments cannot be sent through Care Everywhere. * Anemia (AfterCare(R) Instructions(ER/ED)) ([place]) * Heart Failure (AfterCare(R) Instructions(ER/ED)) ([place]) documented in this encounter Medications at Time of Discharge amLODIPine (NORVASC) 10 mg tablet Take 1 tablet (10 mg total) by mouth daily atorvastatin (LIPITOR) 40 mg tablet Take 1 tablet (40 mg total) by mouth daily Entresto 24-26 mg tablet Take 1 tablet by mouth 2 (two) times a day 06/11/2022 furosemide (LASIX) 40 mg tablet Take 1 tablet (40 mg total) by mouth daily 05/28/2022 gabapentin (NEURONTIN) 300 mg capsule Take 1 capsule (300 mg total) by mouth 3 (three) times a day 06/25/2022 Jardiance 10 mg tablet Take 1 tablet (10 mg total) by mouth daily 06/23/2022 NovoLOG 100 unit/mL vial for injection 06/18/2022 omeprazole (PriLOSEC) 20 mg capsule Take 1 capsule (20 mg total) by mouth daily 06/01/2022 oxyCODONE (ROXICODONE) 5 mg immediate release tabletIndication s:Pain Take 1 tablet (5 mg total) by mouth every 4 (four) hours as needed for pain for up to 12 doses 12 tablet 06/28/2022 potassium chloride ER 10 mEq CR capsule Take 1 tablet/capsule (10 mEq total) by mouth daily 06/14/2022 ferrous sulfate 325 mg (65 mg of elemental iron) tabletIndication s:Iron Deficiency Anemia Take 1 tablet (325 mg total) by mouth daily with breakfast 30 tablet 06/28/2022 3 documented as of this encounter Ordered Prescriptions Prescription Sig Dispense Quantity Refills Last Filled Start Date End Date oxyCODONE (ROXICODONE) 5 mg immediate release tabletIndications: Pain Take 1 tablet (5 mg total) by mouth every 4 (four) hours as needed for pain for up to 12 doses 12 tablet 06/28/2022 ferrous sulfate 325 mg (65 mg of elemental iron) tabletIndications: Iron Deficiency Anemia Take 1 tablet (325 mg total) by mouth daily with breakfast 30 tablet 06/28/2022 3 documented in this encounter Discharge Disposition Disposition Code Departure Means Destination Comment s Discharge to SNF documented in this encounter Progress Notes * Alisha Zamora RN - 06/28/2022 1:56 PM CDT DISCHARGE PLANNING Met with patient and family, pt is a jail resident at [facility] . At thistime pt/family plan for patient to return there at d/c. Referral sent. Spoke with Jim at facility and pt can return. [facility] [address] [place] [address] Transportation at d/c will be provided by [employer] # [id number] and hand picker is anticipated today @12:30 pm EMS Criteria: Patient/family informed that while medical team will do everything possible for insurance to cover the cost of EMS transport, there is a chance that insurance will not pay, as payor's criteria for EMS are often stricter than the medical team. Patient/family are aware that even if payor does pay, itmay not cover the full cost of the trip as insurance is now only covering the cost to nearest available facility. Patient/family are aware that they will be responsible for the remainder of the bill if there is one. Patient/family voiced understanding. Alisha Zamora RN 06/28/2022 11:08 AM - Update: EMS now scheduled for 1:30 pm due to SPENCER Pineda adjusting time of previous scheduled ambulance per [facility] dispatch. * Nunu Alcaraz, ELMER - 06/27/2022 3:08 PM CDT Nutrition Assessment Reason for Assessment: Screened at Nutrition Risk Encounter Date: 06/27/22 3:21 PM Patient is a 67 y.o. female. Admit Dx: Hypoglycemia [E16.2] Urinary tract infection without hematuria, site unspecified [N39.0] Anemia, unspecified type [D64.9]. Admitted on 06/25/2022, current LOS is 2 days. Nutrition Diagnosis 1: Inadequate oral intake Related to: Loss of appetite, Altered mental status Evidenced by: Inconsistent PO intakes, Patient interview ASPEN Malnutrition Assessment: Date of completion (or initial diagnosis): 06/27/22 Patient does not meet criteria for malnutrition based on ASPEN guidelines. Nutrition-focused physical exam (NFPE) findings: ASPEN/AND Malnutrition Screening: Patient does not meet malnutrition criteria Subcutaneous Fat Loss Orbital Region - Surrounding the Eye: Slightly dark circles Cheek Region - Buccal Fat: Full, round filled-out cheeks Upper Arm Region - Triceps/Biceps: Some depth pinch but not ample Muscle Loss [place] Region - Temporalis Muscle: Can see/feel well-defined muscle Clavicle Bone Region - Pectoralis Major, Deltoid, Trapezius Muscles: Visible in male, some protrusion in female Clavicle and Acromion Bone Region - Deltoid Muscle: Rounded, curves at arm/shoulder/neck Anterior Thigh and Patellar Region - Quadricep Muscle: Unable to assess due to injury (bilateral AKA) Posterior Calf Region - Gastrocnemius Muscle: Unable to assess due to injury (bilateral AKA) ASSESSMENT AND INTERVENTION/RECOMMENDATIONS: Pt is a 67 y.o. female w/ PMH of Dememtia, DM, HTN, admitted 06/25/2022 for Hypoglycemia [E16.2] Urinary tract infection without hematuria, site unspecified [N39.0] Anemia, unspecified type [D64.9]. Pt was screened for MST (unsure weight loss). Pt was tired during visit. Pt reports that she is hungry, but does not always feel hungry. PO intake from the last 4 documented meals averages 50% (last 3 meals 50%, 50%, 75%). Pt did not respond to questions regarding home intake. Pt reports no upset stomach, nausea, vomiting, diarrhea, constipation. Last pt BM documented was 06/26/22. Pt CBW is 141 lbs. Per chart review, pt previously weighed 169 lbs on 06/23/20, which indicates a 28 lb (16.6%) weight loss in two years, which is not significantfor timeframe. No more recent weights documents. NFPE performed (see above). Will provide Ensure HP Vanilla TID to encourage PO intake. Encourages PO intake. D/c pending hospital course. RD will continue to monitor and follow. EDUCATION NEEDED/COMPLETED? N/A GOALS / MONITORING: Goals: Tolerance of medical food supplement by next assessment, Oral intake to meet 75% estimated nutritional needs by next assessment Interventions: Initial assessment, NFPE, Medical food supplement, Encouragement Monitoring and Evaluation: Appetite, Food preferences, Discharge plans, Plan of care, PO intake, Supplement tolerance Anthropometrics: Wt Readings from Last 10 Encounters: 06/25/22 64.1 kg (141 lb 6.4 oz) 06/23/20 76.7 kg (169 lb) 11/14/19 82.6 kg (182 lb 3.2 oz) 06/21/18 95.3 kg (210 lb) 06/12/18 95.3 kg (210 lb) 05/15/18 93.4 kg (206 lb) 10/30/17 94.8 kg (209 lb) Anthropometrics Weight: 64.1 kg (141 lb 6.4 oz) Admission Weight : 64.1 kg Weight Change: -10.86 kg (-23.94 lbs) IBW/kg (Calculated) : 2.3 kg Estimated Nutrition Needs: Calories Calculated Energy Needs Using Equations Weight Used for Equation Calculations (RD Determined): 64.1 kg (141 lb 5 oz) Weight: 64.1 kg (141 lb 6.4 oz) Kcal/kg Type of Weight Used for Estimated Kcals: Current Kcal/k Total Kcal/kg Estimated Needs : 1411.06 Protein Estimated Protein Needs Type of Weight Used for Estimated Protein : Current Protein Needs Based on g/k.8 Total Protein Estimated Needs (gm): 51.31 Fluid Estimated Fluid Needs Type of Weight Used for Estimated Fluid Needs: Current Fluid Needs Based on : 25 ml/kg Total Fluid Estimated Needs: 1603.48 Total Fluid Estimated Needs Comments:: 1500 mL minium for adult maintenance Medications: 06/27/22: Lipitor, Rocephin, Lasix, Humalog, Protonix Lab Review: 06/27/22: Na 130 (L), BUN 27 (H), Ca 8.1 (L) Past Medical History: Diagnosis Date Dementia (CMS/HCC) Diabetes mellitus (CMS/HCC) Hypertension Past Surgical History: Procedure Laterality Date HERNIA REPAIR Dietary Orders (From admission, onward) Start Ordered 06/27/22 1700 Oral Nutrition Supplements Select Supplement: Ensure High Protein - Vanilla; Quantity(# of cans): 1 can All Meals Question Answer Comment Select Supplement: Ensure High Protein - Vanilla Quantity (# of cans): 1 can 06/27/22 1520 06/26/22 2100 Bedtime snack At bedtime Comments: If bedtime BG is less than 100mg/dl, give patient a 15 gram carbohydrate snack. 06/26/22 0806 06/25/22 2302 Adult Diet Regular Diet effective now Question: (MHB/MHE) Diet type Answer: Regular 06/25/22 2303 Diet Instructions Call inpatient dietitian office at [facility] with any nutrition-related questions or concerns ([phone]). Thank you! Nutrition Follow-Up : 07/01/22 (PO intake, supplement tolerance) * Lucero Echeverria, PT - 06/27/2022 2:04 PM CDT Physical Therapy 06/27/22 1404 General Chart Reviewed Yes Session Type Evaluation Safe Environment Arm band checked;Patient found in supine Subjective Agreeable to Therapy Additional Pertinent History h/o B breast CA, PVD, DM, dementia, HTN, B AKA Precautions Precautions Fall risk;Bed/Chair Alarm Precaution Comments IV Home Living Type of Home Extended Care Facility Additional Comments Pt reports she lives at [facility] Prior Function Prior Function Comments Pt requires assist with ADL's. Pt is transferred with sharona lift. NH performs IADL's/meds/toileting/positioning in bed. Pain Assessment Pain Assessment No/denies pain Cognition Orientation Oriented to person;Oriented to place Bed Mobility 1 Bed Mobility Comments 1 Pt rolled with bedrail and max assist of 1 and cues. PT Treatment/Exercise Comments PT Treatment/Exercise Comments B UE strength 3- to 3/5. B LE strength 2/5. Plan Plan Discharge Recommendation/Plan PT Recommendation/Plan (S) Extended Care Facility PT Recommendation/Plan Comments Pt at [facility]. Pt transferred with sharona lift and requires assist withADL's. Pt not good candidate for skilled PT. Pt discharged. PT - OK to Discharge Yes PT Evaluation Complete Yes Educated the patient to the role of physical therapy, plan of care, goals of therapy, rationale fordischarge Patient was left with all needs met and equipment intact. Mobility and ADL status posted at bedsideand within medical record. * Elias Abraham MD - 06/27/2022 12:24 PM CDT General Medicine Daily Progress Subjective Patient seen and examined at bedside in follow up for hypoglycemia. Patient has no new complains 06/27 Patient seen and examined at bedside, she has no new complain Past Medical History: Diagnosis Date Dementia (CMS/HCC) Diabetes mellitus (CMS/[facility]) Hypertension Objective Vitals: 24hr Min/Max: Temp Min: 36.7 ??C (98 ??F) Max: 37.6 ??C (99.6 ??F) Pulse Min: 74 Max: 81 BP Min: 100/61 Max: 123/78 Resp Min: 18 Max: 20 SpO2 Min: 93 % Max: 100 % Most Recent : Vitals: 06/27/22 0905 BP: Pulse: 79 Resp: Temp: SpO2: I/O last 2 completed shifts: In: 720 [P.O.:720] Out: - I/O this shift: In: 240 [P.O.:240] Out: - Physical Exam: General: Pleasant, no acute distress Chest: Clear to auscultation CVS:S1S2 regular, no galop Abdomen: Obese, +bs Extremities: Bilateral above knee amputations Skin: Sacral skin breakdown VELVET CUTTER: No 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 Lab/Radiology/Diagnostic Review: Laboratory review: Lab results in the last 24 hours: Recent Results (from the past 24 hour(s)) POCT glucose Collection Time: 06/26/22 4:13 PM Result Value Ref Range Glucose, POC 205 (H) 70 - 199 mg/dL Glucose comment 1 Use This Result Glucose comment 2 RN/MD Notified Glucose comment 3 Critical Value Hemoglobin and hematocrit Collection Time: 06/26/22 6:25 PM Result Value Ref Range Hgb 7.1 (L) 11.9 - 15.5 g/dL Hct 22.5 (L) 35.6 - 45.5 % POCT glucose Collection Time: 06/26/22 8:43 PM Result Value Ref Range Glucose, POC 215 (H) 70 - 199 mg/dL Glucose comment 1 RN/MD Notified POCT glucose Collection Time: 06/27/22 2:39 AM Result Value Ref Range Glucose, POC 219 (H) 70 - 199 mg/dL Glucose comment 1 RN/MD Notified Basic metabolic panel Collection Time: 06/27/22 4:05 AM Result Value Ref Range Sodium 130 (L) 135 - 145 mmol/L Potassium, pl 4.2 3.3 - 4.9 mmol/L Chloride 92 (L) 97 - 110 mmol/L CO2 28 22 - 32 mmol/L Anion gap 10 2 - 15 mmol/L BUN 27 (H) 8 - 25 mg/dL Creatinine 0.90 0.60 - 1.10 mg/dL Glucose 187 70 - 199 mg/dL Calcium 8.1 (L) 8.5 - 10.3 mg/dL CBC with auto differential Collection Time: 06/27/22 4:05 AM Result Value Ref Range WBC 8.9 3.8 - 9.9 K/cumm Hgb 6.8 (L) 11.9 - 15.5 g/dL Hct 21.7 (L) 35.6 - 45.5 % Plt 334 150 - 400 K/cumm MPV 9.5 9.1 - 12.3 fL RBC 2.40 (L) 3.90 - 5.20 M/cumm MCV 90.4 81.3 - 96.4 fL MCH 28.3 27.1 - 33.3 pg MCHC 31.3 (L) 32.3 - 35.7 g/dL RDW CV 20.0 (H) 11.1 - 14.9 % RDW SD 66.1 (H) 35.7 - 48.1 fL NRBC abs 0.00 0.00 - 0.01 K/cumm Differential, auto Collection Time: 06/27/22 4:05 AM Result Value Ref Range Neutrophil abs 6.7 (H) 1.7 - 6.5 K/cumm Imm gran abs 0.1 0.0 - 0.1 K/cumm Lymphocyte abs 1.4 0.8 - 3.3 K/cumm Monocyte abs 0.7 0.2 - 0.8 K/cumm Eosinophil abs 0.1 0.0 - 0.5 K/cumm Basophil abs 0.0 0.0 - 0.1 K/cumm Neutrophil pct 75.2 % Imm gran pct 0.6 % Lymphocyte pct 15.1 % Monocyte pct 7.6 % Eosinophil pct 1.1 % Basophil pct 0.4 % eGFR Collection Time: 06/27/22 4:05 AM Result Value Ref Range eGFR 70 mL/min/1.73 m2 Prepare RBC: 1 Units Collection Time: 06/27/22 8:08 AM Result Value Ref Range Units requested 1 Units requested Ready POCT glucose Collection Time: 06/27/22 8:42 AM Result Value Ref Range Glucose, POC 189 70 - 199 mg/dL Glucose comment 1 Use This Result CBC with auto differential Collection Time: 06/27/22 9:09 AM Result Value Ref Range WBC 9.3 3.8 - 9.9 K/cumm Hgb 7.1 (L) 11.9 - 15.5 g/dL Hct 22.8 (L) 35.6 - 45.5 % Plt 363 150 - 400 K/cumm MPV 9.6 9.1 - 12.3 fL RBC 2.55 (L) 3.90 - 5.20 M/cumm MCV 89.4 81.3 - 96.4 fL MCH 27.8 27.1 - 33.3 pg MCHC 31.1 (L) 32.3 - 35.7 g/dL RDW CV 19.8 (H) 11.1 - 14.9 % RDW SD 63.3 (H) 35.7 - 48.1 fL NRBC abs 0.00 0.00 - 0.01 K/cumm Differential, auto Collection Time: 06/27/22 9:09 AM Result Value Ref Range Neutrophil abs 7.1 (H) 1.7 - 6.5 K/cumm Imm gran abs 0.0 0.0 - 0.1 K/cumm Lymphocyte abs 1.4 0.8 - 3.3 K/cumm Monocyte abs 0.7 0.2 - 0.8 K/cumm Eosinophil abs 0.1 0.0 - 0.5 K/cumm Basophil abs 0.1 0.0 - 0.1 K/cumm Neutrophil pct 76.3 % Imm gran pct 0.4 % Lymphocyte pct 14.8 % Monocyte pct 7.0 % Eosinophil pct 1.0 % Basophil pct 0.5 % POCT glucose Collection Time: 06/27/22 11:23 AM Result Value Ref Range Glucose, POC 302 (H) 70 - 199 mg/dL POCT glucose Collection Time: 06/27/22 11:24 AM Result Value Ref Range Glucose, POC 323 (H) 70 - 199 mg/dL Glucose comment 1 Use This Result Glucose comment 2 RN/MD Notified Glucose comment 3 Critical Value Current Facility-Administered Medications Medication Dose Route Frequency Provider Last Rate Last Admin acetaminophen (TYLENOL) tablet 650 mg 650 mg oral Q4H PRN Mxa Iverson MD [Held by Provider] amLODIPine (NORVASC) tablet 10 mg 10 mg oral Daily Max Iverson MD atorvastatin (LIPITOR) tablet 40 mg 40 mg oral Daily Max Iverson MD 40 mg at 06/26/22928 Carrier Fluids for Secondary Infusion - 0.9% Sodium Chloride 30 mL intravenous PRN Max Iverson MD cefTRIAXone (ROCEPHIN) 1,000 mg/10 mL in sterile water (premix) 1,000 mg 1,000 mg intravenous Q24H KASIE Max Iverson MD 1,000 mg at 06/26/22928 dextrose (GLUTOSE) 40 % gel 15 g 15 g oral Q15 Min PRN Elias Abraham MD Or dextrose (D10W) 10% bolus 250 mL 250 mL intravenous Q15 Min PRN Elias Abraham MD [Held by Provider] enoxaparin (LOVENOX) syringe 30 mg 30 mg subcutaneous Daily- 2100 Max Iverson MD 30 mg at 06/26/222232 gabapentin (NEURONTIN) capsule 300 mg 300 mg oral TID Elias Abraham MD 300 mg at glucagon injection 1 mg 1 mg intramuscular Q30 Min PRN Elias Abraham MD insulin lispro (HumaLOG, ADMELOG) 100 unit/mL injection 0-4 Units 0-4 Units subcutaneous Nightly Elias Abraham MD insulin lispro (HumaLOG, ADMELOG) 100 unit/mL injection 0-5 Units 0-5 Units subcutaneous TID with meals Elias Abraham MD 1 Units at 06/26/22928 [START ON 06/27/2022] levothyroxine (SYNTHROID) tablet 100 mcg 100 mcg oral Daily - 0600 Elias Abraham MD ondansetron ODT (ZOFRAN-ODT) disintegrating tablet 4 mg 4 mg oral Q6H PRN Max Iverson MD Or ondansetron (ZOFRAN) injection 4 mg 4 mg intravenous Q6H PRN Max Iverson MD pantoprazole DR (PROTONIX) extended release tablet 40 mg 40 mg oral Daily Elias Zaidi MD 40 mg at 06/26/22 0929 polyethylene glycol (MIRALAX) packet 17 g 17 g oral Daily PRN Max Iverson MD sacubitriL-valsartan (ENTRESTO) 24-26 mg tablet 1 tablet 1 tablet oral BID Elias Zaidi MD 1 tablet at 06/26/22 0929 sodium chloride 0.9% flush 0.5-20 mL 0.5-20 mL intra-catheter Q8H KASIE Max Iverson MD 10mL at 06/26/22 0001 sodium chloride 0.9% flush 0.5-20 mL 0.5-20 mL intra-catheter PRN Max Iverson MD Assessment/Plan Principal Problem: Hypoglycemia #Altered mental status secondary to hypoglycemia #Hypoglycemia These have resolved #Diabetes mellitus II, uncontrolled with hyperglycemia Patient started on sliding scale insulin Monitor blood sugars and consider adding basal coverage 06/27 Blood sugars poorly controlled 5 units of pre meal lispro and 10 units of basal lantus added to regimen #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 #Hypothyroidism Synthroid #Anemia Etiology is unclear Stool for occult blood, iron studies Monitor hemoglobin and transfuse as required 06/27 Stool for occult blood pending as well as iron studies Hemoglobin dropped below 7, a unit of packed red cells ordered for transfusion #Acute cystitis with hematuria Ceftriaxone pending sensitivities 06/27 Urine culture consistent with contamination Discontinue Ceftriaxone #History of systolic congestive heart failure Continue Lasix and Entresto Echocardiogram pending #Sacral skin breakdown Wound care consult * Alisha Zamora RN - 06/27/2022 12:15 PM CDT CM Initial Assessment Interview Note Information Obtained From: Patient (06/27/22 1215) Admission Source: Emergency Impression: Patient with a PMHx significant for Dementia, DM, bilateral AKA and Hypertension presents to the ED with c/o hypoglycemia. Plan Includes: D50 originally ordered. Monitor blood sugars. Urine suggestive of UTI. IV antibiotics given. Urine cultures ordered-consistent with contamination. Echo pending. Hemoglobin dropped below 7, a unit of packed red cells ordered for transfusion. Stool for occult blood ordered. Labs in chart were reviewed. Lab Results Component Value Date WBC 9.3 06/27/2022 HGB 7.1 (L) 06/27/2022 HCT 22.8 (L) 06/27/2022 MCV 89.4 06/27/2022 LABPLAT 363 06/27/2022 Lab Results Component Value Date GLUCOSE 187 06/27/2022 CALCIUM 8.1 (L) 06/27/2022 SODIUM 130 (L) 06/27/2022 POTASSIUM 4.2 06/27/2022 CO2 28 06/27/2022 CHLORIDE 92 (L) 06/27/2022 BUNSER 27 (H) 06/27/2022 CREATININE 0.90 06/27/2022 Lab Results Component Value Date AST 16 06/25/2022 ALT 6 (L) 06/25/2022 ALKPHOS 32 (L) 06/25/2022 Lab Results Component Value Date COLORU Yellow 06/25/2022 CLARITYU Turbid (A) 06/25/2022 KETONESU Negative 06/25/2022 BILIRUBINUR Negative 06/25/2022 UROBILINOGEN 4.0 (A) 06/25/2022 Lab Results Component Value Date TROPONINI <0.300 07/31/2018 Primary Source of Transportation: Does the patient need discharge transport arranged?: Yes Has discharge transport been arranged?: No Details of Transportation: EMS (06/27/22 1215) Health Insurance Coverage: [place] & [place] Complete Prescription Coverage: Medicare & [place] Complete Pharmacy: [facility] - [address] [phone] [facility] [address] [place], [place] - [address] [facility] [address] [facility] [address] Primary Care Provider: Zeke Puente MD Prior to Admission: Primary Caregiver: Facility staff Who does the patient or legal guardian want to receive education instruction and discharge plans for after care assistance?: Decline Support System: Children Home Care Services: No Durable Medical Equipment: Wheelchair, Sharona lift (sharona used at facility) Living Arrangements: [facility] Type of Residence: [facility] Does patient wish to return to care facility?: Yes, wishes to return Will the care facility allow the patient to return?: Yes, patient can return Care Facility Name: [facility] (06/25/22 2300) SDOH: Transportation: In the past 12 months, has lack of transportation kept you from medical appointments or from getting medications?: No ([facility] resident) In the past 12 months, has lack of transportation kept you from meetings, work, or from getting things needed for daily living?: No ([facility] resident) (06/27/22 121) Financial Resource: How hard is it for you to pay for the very basics like food, housing, medical care, and heating?: Not hard at all ([facility] resident) (06/27/221214) Social Connections: In a typical week, how many times do you talk on the phone with family, friends, or neighbors?: Three times a week ([facility] resident) How often do you get together with friends or relatives?: Once a week ([facility] resident) How often do you attend quaker or gnosticism services?: Never ([facility] resident) Do you belong to any clubs or organizations such as quaker groups, unions, fraternal or athletic groups, or school groups?: No ([facility] resident) How often do you attend meetings of the clubs or organizations you belong to?: Never ([facility] resident) Are you , , , , never , or living with a partner?: Never (06/27/221214) Potential discharge needs include: EMS transportation Patient expects to be Discharged to: [facility] (jail), (06/27/221214) Additional Information: CM met with pt at bedside during PFR and at this time the pt's preference is to return [facility] at discharge. Pt is w/c bound at facility. Will continue to monitor and assist as needed. Patient's Identified Problem/Goal Problem: Ensure acute medical [...] Collaboration with patient, MD, direct care nurse, Complex Care Nurse Practitioner, and other members of the health care team to assure needed interventions completed. 2. Return patient to optimal level of self-care post discharge. 3. Mental Health Counselor will follow for Discharge Planning - interventions as needed 4. Anticipated level of care at discharge 5. Planned Discharge Disposition Alisha Zamora RN * Yu Kumar OT - 06/27/2022 7:54 AM CDT Occupational Therapy 06/27/22 0754 General Chart Reviewed Yes Session Type Evaluation OT Missed Visit Reason Other (comment) (Will hold OT evaluation at this time as pt's hgb level is currently 6.8. Per departmental guidelines, will hold OT eval/functional activity until value is >7.0. Will continue to monitor.) * Serg Tolbert - 06/26/2022 3:29 PM CDT 06/26/22 0821 Time Spent Start Time 1529 Patient Spiritual Assessment Spirituality Assessed Yes Gnosticism Affiliation [employer] Active in [employer] Yes Place of Baptism [facility] Clinical Encounter Type Visited With Patient Response Type Routine visit Routine Visit Introduction Reason for visit Support Pastoral care visit received patient who stated that she was feeling wonderful, but expressed concern about knot on buttock with pain level reaching as high as 9. Car Restorer used empathetic listening, words of comfort, Scripture promise, and prayer blessing to offer pt spiritual care. Pt grateful forPCV. * Elias Abraham MD - 06/26/2022 12:21 PM CDT General Medicine Daily Progress Subjective Patient seen and examined at bedside in follow up for hypoglycemia. Patient has no new complains Past Medical History: Diagnosis Date Dementia ([facility]) Diabetes mellitus ([facility]) Hypertension Objective Vitals: 24hr Min/Max: Temp Min: 36.5 ??C (97.7 ??F) Max: 37.4 ??C (99.3 ??F) Pulse Min: 59 Max: 84 BP Min: 111/65 Max: 160/51 Resp Min: 12 Max: 29 SpO2 Min: 92 % Max: 100 % Most Recent : Vitals: 06/26/22 0751 BP: 111/65 Pulse: 80 Resp: 18 Temp: 37.4 ??C (99.3 ??F) SpO2: 92% I/O last 2 completed shifts: In: 360 [P.O.:360] Out: 351 [Urine:351] I/O this shift: In: 120 [P.O.:120] Out: - Physical Exam: General: Alert, in no acute distress Chest: Clear to auscultation CVS:S1S2 regular, no galop Abdomen: Sof, +bs Extremities: Bilateral above knee amputation VELVET CUTTER: No 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 Lab/Radiology/Diagnostic Review: Laboratory review: Lab results in the last 24 hours: Recent Results (from the past 24 hour(s)) POCT glucose Collection Time: 06/25/22 2:57 PM Result Value Ref Range Glucose, POC 47 (Critical) 70 - 199 mg/dL Glucose comment 1 Will Repeat Test Glucose comment 2 Use This Result Glucose comment 3 RN/MD Notified POCT glucose Collection Time: 06/25/22 3:00 PM Result Value Ref Range Glucose, POC 80 70 - 199 mg/dL POCT glucose Collection Time: 06/25/22 3:21 PM Result Value Ref Range Glucose, POC 64 (L) 70 - 199 mg/dL Glucose comment 1 Use This Result POCT glucose Collection Time: 06/25/22 3:32 PM Result Value Ref Range Glucose, POC 62 (L) 70 - 199 mg/dL Glucose comment 1 Use This Result POCT glucose Collection Time: 06/25/22 4:04 PM Result Value Ref Range Glucose, POC 55 (Critical) 70 - 199 mg/dL Comprehensive metabolic panel Collection Time: 06/25/22 4:06 PM Result Value Ref Range Sodium 134 (L) 135 - 145 mmol/L Potassium, pl 3.9 3.3 - 4.9 mmol/L Chloride 95 (L) 97 - 110 mmol/L CO2 31 22 - 32 mmol/L Anion gap 8 2 - 15 mmol/L BUN 29 (H) 8 - 25 mg/dL Creatinine 0.90 0.60 - 1.10 mg/dL Glucose 54 (Critical) 70 - 199 mg/dL Calcium 8.2 (L) 8.5 - 10.3 mg/dL Bilirubin, total 0.5 0.1 - 1.2 mg/dL Protein, pl 7.7 6.5 - 8.5 g/dL Albumin 2.7 (L) 3.5 - 5.0 g/dL Alk phos 32 (L) 40 - 130 Units/L ALT 6 (L) 7 - 45 Units/L AST 16 10 - 45 Units/L CBC with auto differential Collection Time: 06/25/22 4:06 PM Result Value Ref Range WBC 9.9 3.8 - 9.9 K/cumm Hgb 7.0 (L) 11.9 - 15.5 g/dL Hct 23.4 (L) 35.6 - 45.5 % Plt 358 150 - 400 K/cumm MPV 9.2 9.1 - 12.3 fL RBC 2.54 (L) 3.90 - 5.20 M/cumm MCV 92.1 81.3 - 96.4 fL MCH 27.6 27.1 - 33.3 pg MCHC 29.9 (L) 32.3 - 35.7 g/dL RDW CV 19.9 (H) 11.1 - 14.9 % RDW SD 65.6 (H) 35.7 - 48.1 fL NRBC abs 0.00 0.00 - 0.01 K/cumm Differential, auto Collection Time: 06/25/22 4:06 PM Result Value Ref Range Neutrophil abs 7.5 (H) 1.7 - 6.5 K/cumm Imm gran abs 0.1 0.0 - 0.1 K/cumm Lymphocyte abs 1.3 0.8 - 3.3 K/cumm Monocyte abs 0.9 (H) 0.2 - 0.8 K/cumm Eosinophil abs 0.1 0.0 - 0.5 K/cumm Basophil abs 0.0 0.0 - 0.1 K/cumm Neutrophil pct 75.5 % Imm gran pct 1.0 % Lymphocyte pct 13.6 % Monocyte pct 8.6 % Eosinophil pct 0.9 % Basophil pct 0.4 % eGFR Collection Time: 06/25/22 4:06 PM Result Value Ref Range eGFR 70 mL/min/1.73 m2 Urinalysis reflex to microscopic and culture Urine Collection Time: 06/25/22 4:41 PM Specimen: Urine Result Value Ref Range Color, ur Yellow Yellow Clarity, ur Turbid (A) Clear Specific gravity, ur 1.012 1.003 - 1.030 pH, urine 5.0 Protein, ur ql 1+ (A) Negative Glucose, ur ql 3+ (A) Negative Ketones, ur Negative Negative Bilirubin, ur Negative Negative Blood, ur 1+ (A) Negative Urobilinogen, ur 4.0 (A) <2.0 mg/dL Nitrite, ur Negative Negative Leukocyte esterase, ur 3+ (A) Negative UA reflex comment Reflex to microscopic UA will be performed. Urinalysis, microscopic only Collection Time: 06/25/22 4:41 PM Result Value Ref Range WBC, ur >50 (A) 0 - 5 /HPF RBC, ur >50 (A) 0 - 2 /HPF Epithelial cells, squamous, ur 6-10 (A) 0 - 5 /HPF Bacteria, ur 4+ (A) Yeast, ur 4+ (A) Culture Reflex Comment Reflex to urine culture will be performed. POCT glucose Collection Time: 06/25/22 4:49 PM Result Value Ref Range Glucose, POC 169 70 - 199 mg/dL Sepsis Lactate w/ Reflex Collection Time: 06/25/22 5:00 PM Result Value Ref Range Sepsis Lactate 2.4 (Critical) 0.7 - 2.0 mmol/L POCT glucose Collection Time: 06/25/22 5:37 PM Result Value Ref Range Glucose, POC 151 70 - 199 mg/dL POCT glucose Collection Time: 06/25/22 6:33 PM Result Value Ref Range Glucose, POC 137 70 - 199 mg/dL Sepsis Lactate w/ Reflex Collection Time: 06/25/22 7:57 PM Result Value Ref Range Sepsis Lactate 1.3 0.7 - 2.0 mmol/L POCT glucose Collection Time: 06/25/22 8:00 PM Result Value Ref Range Glucose, POC 57 (L) 70 - 199 mg/dL Glucose comment 1 Use This Result POCT glucose Collection Time: 06/25/22 8:32 PM Result Value Ref Range Glucose, POC 249 (H) 70 - 199 mg/dL POCT glucose Collection Time: 06/25/22 9:02 PM Result Value Ref Range Glucose, POC 225 (H) 70 - 199 mg/dL POCT glucose Collection Time: 06/25/22 9:45 PM Result Value Ref Range Glucose, POC 229 (H) 70 - 199 mg/dL Glucose comment 1 Use This Result POCT glucose Collection Time: 06/25/22 10:32 PM Result Value Ref Range Glucose, POC 222 (H) 70 - 199 mg/dL POCT glucose Collection Time: 06/25/22 11:00 PM Result Value Ref Range Glucose, POC 257 (H) 70 - 199 mg/dL Glucose comment 1 Use This Result POCT glucose Collection Time: 06/26/22 12:15 AM Result Value Ref Range Glucose, POC 217 (H) 70 - 199 mg/dL Glucose comment 1 Use This Result Basic metabolic panel Collection Time: 06/26/22 5:26 AM Result Value Ref Range Sodium 133 (L) 135 - 145 mmol/L Potassium, pl 4.7 3.3 - 4.9 mmol/L Chloride 93 (L) 97 - 110 mmol/L CO2 30 22 - 32 mmol/L Anion gap 10 2 - 15 mmol/L BUN 28 (H) 8 - 25 mg/dL Creatinine 0.80 0.60 - 1.10 mg/dL Glucose 165 70 - 199 mg/dL Calcium 8.3 (L) 8.5 - 10.3 mg/dL CBC with auto differential Collection Time: 06/26/22 5:26 AM Result Value Ref Range WBC 8.3 3.8 - 9.9 K/cumm Hgb 6.9 (L) 11.9 - 15.5 g/dL Hct 22.5 (L) 35.6 - 45.5 % Plt 355 150 - 400 K/cumm MPV 9.6 9.1 - 12.3 fL RBC 2.50 (L) 3.90 - 5.20 M/cumm MCV 90.0 81.3 - 96.4 fL MCH 27.6 27.1 - 33.3 pg MCHC 30.7 (L) 32.3 - 35.7 g/dL RDW CV 19.6 (H) 11.1 - 14.9 % RDW SD 64.5 (H) 35.7 - 48.1 fL NRBC abs 0.00 0.00 - 0.01 K/cumm Differential, auto Collection Time: 06/26/22 5:26 AM Result Value Ref Range Neutrophil abs 6.4 1.7 - 6.5 K/cumm Imm gran abs 0.0 0.0 - 0.1 K/cumm Lymphocyte abs 1.1 0.8 - 3.3 K/cumm Monocyte abs 0.6 0.2 - 0.8 K/cumm Eosinophil abs 0.1 0.0 - 0.5 K/cumm Basophil abs 0.0 0.0 - 0.1 K/cumm Neutrophil pct 77.2 % Imm gran pct 0.4 % Lymphocyte pct 13.7 % Monocyte pct 7.6 % Eosinophil pct 0.7 % Basophil pct 0.4 % eGFR Collection Time: 06/26/22 5:26 AM Result Value Ref Range eGFR 81 mL/min/1.73 m2 Hemoglobin and hematocrit Collection Time: 06/26/22 8:10 AM Result Value Ref Range Hgb 7.0 (L) 11.9 - 15.5 g/dL Hct 22.9 (L) 35.6 - 45.5 % POCT glucose Collection Time: 06/26/22 8:46 AM Result Value Ref Range Glucose, POC 178 70 - 199 mg/dL Glucose comment 1 Use This Result ABO/Rh Collection Time: 06/26/22 9:25 AM Result Value Ref Range ABO/Rh O Positive Antibody screen Collection Time: 06/26/22 9:25 AM Result Value Ref Range Veronica, indirect, Gel Interpretation Negative ABSC POCT glucose Collection Time: 06/26/22 11:40 AM Result Value Ref Range Glucose, POC 182 70 - 199 mg/dL Glucose comment 1 Use This Result Current Facility-Administered Medications Medication Dose Route Frequency Provider Last Rate Last Admin acetaminophen (TYLENOL) tablet 650 mg 650 mg oral Q4H PRN Max Iverson MD [Held by Provider] amLODIPine (NORVASC) tablet 10 mg 10 mg oral Daily Max Iverson MD atorvastatin (LIPITOR) tablet 40 mg 40 mg oral Daily Max Iverson MD 40 mg at 06/26/22 0929 Carrier Fluids for Secondary Infusion - 0.9% Sodium Chloride 30 mL intravenous PRN Max Iverson MD cefTRIAXone (ROCEPHIN) 1,000 mg/10 mL in sterile water (premix) 1,000 mg 1,000 mg intravenous Q24H [facility] Max Iverson MD 1,000 mg at 06/26/22928 dextrose (GLUTOSE) 40 % gel 15 g 15 g oral Q15 Min PRN Elias Abraham MD Or dextrose (D10W) 10% bolus 250 mL 250 mL intravenous Q15 Min PRN Elias Abraham MD [Held by Provider] enoxaparin (LOVENOX) syringe 30 mg 30 mg subcutaneous Daily- 2100 Max Iverson MD 30 mg at 06/26/222232 gabapentin (NEURONTIN) capsule 300 mg 300 mg oral TID Elias Abraham MD 300 mg at glucagon injection 1 mg 1 mg intramuscular Q30 Min PRN Elias Abraham MD insulin lispro (HumaLOG, ADMELOG) 100 unit/mL injection 0-4 Units 0-4 Units subcutaneous Nightly Elias Abraham MD insulin lispro (HumaLOG, ADMELOG) 100 unit/mL injection 0-5 Units 0-5 Units subcutaneous TID with meals Elias Abraham MD 1 Units at 06/26/22928 [START ON 06/27/2022] levothyroxine (SYNTHROID) tablet 100 mcg 100 mcg oral Daily - 0600 Elias Abraham MD ondansetron ODT (ZOFRAN-ODT) disintegrating tablet 4 mg 4 mg oral Q6H PRN Max Iverson MD Or ondansetron (ZOFRAN) injection 4 mg 4 mg intravenous Q6H PRN Max Iverson MD pantoprazole DR (PROTONIX) extended release tablet 40 mg 40 mg oral Daily Elias Zaidi MD 40 mg at 06/26/22928 polyethylene glycol (MIRALAX) packet 17 g 17 g oral Daily PRN Max Iverson MD sacubitriL-valsartan (ENTRESTO) 24-26 mg tablet 1 tablet 1 tablet oral BID Elias Zaidi MD 1 tablet at 06/26/22 0929 sodium chloride 0.9% flush 0.5-20 mL 0.5-20 mL intra-catheter Q8H [facility] Max Iverson MD 10 mL at 06/26/22 0001 sodium chloride 0.9% flush 0.5-20 mL 0.5-20 mL intra-catheter PRN Max Iverson MD Assessment/Plan Principal Problem: Hypoglycemia #Altered mental status secondary to hypoglycemia #Hypoglycemia These have resolved #Diabetes mellitus II, uncontrolled with hyperglycemia Patient started on sliding scale insulin Monitor blood sugars and consider adding basal coverage #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 History and Physical Date of Service: 06/25/2022 Primary Care Physician: Zeke Puente MD [phone] CHIEF COMPLAINT: Patient is a 67 y.o. female with a PMHx significant for Dementia, DM, Hypertension Presents to the ED with a chief complaint of Hypoglycemia. HPI: 67 yr old female with past medical history significant for Hypertension, DM, Dementia, bilateral AKA presents to hospital from [place] with hypoglycemia. [facility] to [facility] from [facility], patient is having hypoglycemic events and last night her blood sugar was in 40s, today morning it was in 200s so they gave the lantus 20 units and patient was in hypoglycemia again. Patient was sent to ER. Patient was found to have UTI and generalised anasarca and patient was admitted to hospital. On evaluation, patient very sleepy and not answering much question. Past Medical History: Diagnosis Date Dementia ([facility]) Diabetes mellitus ([facility]) Hypertension Past Surgical History: Procedure Laterality Date HERNIA REPAIR Medications Prior to Admission Medication Sig Dispense Refill Last Dose amLODIPine (NORVASC) 10 mg tablet Take 1 tablet (10 mg total) by mouth daily 06/25/2022 atorvastatin (LIPITOR) 40 mg tablet Take 1 tablet (40 mg total) by mouth daily 06/25/2022 Entresto 24-26 mg tablet Take 1 tablet by mouth 2 (two) times a day 06/25/2022 furosemide (LASIX) 40 mg tablet Take 1 tablet (40 mg total) by mouth daily 06/25/2022 gabapentin (NEURONTIN) 300 mg capsule Take 1 capsule (300 mg total) by mouth 3 (three) times a day 06/25/2022 gabapentin (NEURONTIN) 400 mg capsule Take 1 capsule (400 mg total) by mouth 2 (two) times a day (Patient not taking: Reported on 06/25/2022) 60 capsule 11 Not Taking Jardiance 10 mg tablet Take 1 tablet (10 mg total) by mouth daily 06/25/2022 levothyroxine (SYNTHROID) 100 mcg tablet Take 1 tablet (100 mcg total) 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 30 tablet 1 06/25/2022 NovoLOG 100 unit/mL vial for injection 06/25/2022 omeprazole (PriLOSEC) 20 mg capsule Take 1 capsule (20 mg total) by mouth daily 06/25/2022 oxyCODONE (ROXICODONE) 5 mg immediate release tablet Take 1 tablet (5 mg total) by mouth every 4 (four) hours as needed for pain 30 tablet 0 06/25/[address] (PROTONIX) 40 mg EC tablet Take 1 tablet (40 mg total) by mouth daily (Patient not taking: Reported on 06/25/2022) 30 tablet 11 Not Taking potassium chloride ER 10 mEq CR capsule Take 1 tablet/capsule (10 mEq total) by mouth daily 06/25/2022 Allergies Allergen Reactions Codeine Phosphate Nausea & Vomiting Social History Tobacco Use Smoking status: Never Smokeless tobacco: Never Substance and Sexual Activity Drug use: No Sexual activity: Not on file Alcohol Use: Not on file Family History Problem Relation Age of Onset Diabetes Mother Heart disease Father No Known Problems Sister Diabetes Brother No Known Problems Daughter No Known Problems Son No Known Problems Son No Known Problems Son Review of Systems: Review of Systems Constitutional: Negative. HENT: Negative. Eyes: Negative. Respiratory: Negative. Cardiovascular: Negative. Gastrointestinal: Negative. Endocrine: Negative. Genitourinary: Negative. Musculoskeletal: Negative. Skin: Negative. Allergic/Immunologic: Negative. Neurological: Negative. Hematological: Negative. Psychiatric/Behavioral: Negative. Breast: Negative. OBJECTIVE: Vitals: Arrival Vitals Temp 06/25/22 1412 36.9 ??C (98.4 ??F) Pulse 06/25/22 1410 67 Resp 06/25/22 1410 19 BP 06/25/22 1412 (!) 132/34 SpO2 06/25/22 1410 95 % Temp src 06/25/22 1412 Oral Heart Rate Source 06/25/222034 Monitor Patient Position 06/25/222232 HOB 30 degrees BP Location 06/25/222034 Right arm FiO2 (%) -- Most Recent : Vitals: 06/25/22203406/25/220 06/25/22223206/25/22 2254 BP: (!) 144/38 (!) 154/39 (!) 140/41 (!) 137/105 BP Location: Right arm Right arm Patient Position: HOB 30 degrees Pulse: 62 61 66 67 Resp: 14 14 16 Temp: 36.5 ??C (97.7 ??F) TempSrc: Oral SpO2: 100% 100% 96% 97% Weight: 64.1 kg (141 lb 6.4 oz) I/O last 2 completed shifts: In: 360 [P.O.:360] Out: 350 [Urine:350] No intake/output data recorded. Physical Exam: Physical Exam Vitals reviewed. Constitutional: Appearance: She is obese. HENT: Head: Normocephalic and atraumatic. Right Ear: External ear normal. Left Ear: External ear normal. Nose: Nose normal. Mouth/Throat: Mouth: Mucous membranes are moist. Pharynx: Oropharynx is clear. Eyes: Extraocular Movements: Extraocular movements intact. Conjunctiva/sclera: Conjunctivae normal. Pupils: Pupils are equal, round, and reactive to light. Cardiovascular: Rate and Rhythm: Normal rate and regular rhythm. Pulses: Normal pulses. Heart sounds: Normal heart sounds. Pulmonary: Effort: Pulmonary effort is normal. Breath sounds: Normal breath sounds. Abdominal: General: Bowel sounds are normal. Palpations: Abdomen is soft. Musculoskeletal: Cervical back: Normal range of motion and neck supple. Comments: Bilateral AKA Skin: General: Skin is warm. Capillary Refill: Capillary refill takes less than 2 seconds. Neurological: Mental Status: She is alert. Mental status is at baseline. Psychiatric: Mood and Affect: Mood normal. Behavior: Behavior normal. Thought Content: Thought content normal. Judgment: Judgment normal. Lab/Radiology/Diagnostic Review: Recent Results (from the past 24 hour(s)) POCT glucose Collection Time: 06/25/22 2:57 PM Result Value Ref Range Glucose, POC 47 (Critical) 70 - 199 mg/dL Glucose comment 1 Will Repeat Test Glucose comment 2 Use This Result Glucose comment 3 RN/MD Notified POCT glucose Collection Time: 06/25/22 3:00 PM Result Value Ref Range Glucose, POC 80 70 - 199 mg/dL POCT glucose Collection Time: 06/25/22 3:21 PM Result Value Ref Range Glucose, POC 64 (L) 70 - 199 mg/dL Glucose comment 1 Use This Result POCT glucose Collection Time: 06/25/22 3:32 PM Result Value Ref Range Glucose, POC 62 (L) 70 - 199 mg/dL Glucose comment 1 Use This Result POCT glucose Collection Time: 06/25/22 4:04 PM Result Value Ref Range Glucose, POC 55 (Critical) 70 - 199 mg/dL Comprehensive metabolic panel Collection Time: 06/25/22 4:06 PM Result Value Ref Range Sodium 134 (L) 135 - 145 mmol/L Potassium, pl 3.9 3.3 - 4.9 mmol/L Chloride 95 (L) 97 - 110 mmol/L CO2 31 22 - 32 mmol/L Anion gap 8 2 - 15 mmol/L BUN 29 (H) 8 - 25 mg/dL Creatinine 0.90 0.60 - 1.10 mg/dL Glucose 54 (Critical) 70 - 199 mg/dL Calcium 8.2 (L) 8.5 - 10.3 mg/dL Bilirubin, total 0.5 0.1 - 1.2 mg/dL Protein, pl 7.7 6.5 - 8.5 g/dL Albumin 2.7 (L) 3.5 - 5.0 g/dL Alk phos 32 (L) 40 - 130 Units/L ALT 6 (L) 7 - 45 Units/L AST 16 10 - 45 Units/L CBC with auto differential Collection Time: 06/25/22 4:06 PM Result Value Ref Range WBC 9.9 3.8 - 9.9 K/cumm Hgb 7.0 (L) 11.9 - 15.5 g/dL Hct 23.4 (L) 35.6 - 45.5 % Plt 358 150 - 400 K/cumm MPV 9.2 9.1 - 12.3 fL RBC 2.54 (L) 3.90 - 5.20 M/cumm MCV 92.1 81.3 - 96.4 fL MCH 27.6 27.1 - 33.3 pg MCHC 29.9 (L) 32.3 - 35.7 g/dL RDW CV 19.9 (H) 11.1 - 14.9 % RDW SD 65.6 (H) 35.7 - 48.1 fL NRBC abs 0.00 0.00 - 0.01 K/cumm Differential, auto Collection Time: 06/25/22 4:06 PM Result Value Ref Range Neutrophil abs 7.5 (H) 1.7 - 6.5 K/cumm Imm gran abs 0.1 0.0 - 0.1 K/cumm Lymphocyte abs 1.3 0.8 - 3.3 K/cumm Monocyte abs 0.9 (H) 0.2 - 0.8 K/cumm Eosinophil abs 0.1 0.0 - 0.5 K/cumm Basophil abs 0.0 0.0 - 0.1 K/cumm Neutrophil pct 75.5 % Imm gran pct 1.0 % Lymphocyte pct 13.6 % Monocyte pct 8.6 % Eosinophil pct 0.9 % Basophil pct 0.4 % eGFR Collection Time: 06/25/22 4:06 PM Result Value Ref Range eGFR 70 mL/min/1.73 m2 Urinalysis reflex to microscopic and culture Urine Collection Time: 06/25/22 4:41 PM Specimen: Urine Result Value Ref Range Color, ur Yellow Yellow Clarity, ur Turbid (A) Clear Specific gravity, ur 1.012 1.003 - 1.030 pH, urine 5.0 Protein, ur ql 1+ (A) Negative Glucose, ur ql 3+ (A) Negative Ketones, ur Negative Negative Bilirubin, ur Negative Negative Blood, ur 1+ (A) Negative Urobilinogen, ur 4.0 (A) <2.0 mg/dL Nitrite, ur Negative Negative Leukocyte esterase, ur 3+ (A) Negative UA reflex comment Reflex to microscopic UA will be performed. Urinalysis, microscopic only Collection Time: 06/25/22 4:41 PM Result Value Ref Range WBC, ur >50 (A) 0 - 5 /HPF RBC, ur >50 (A) 0 - 2 /HPF Epithelial cells, squamous, ur 6-10 (A) 0 - 5 /HPF Bacteria, ur 4+ (A) Yeast, ur 4+ (A) Culture Reflex Comment Reflex to urine culture will be performed. POCT glucose Collection Time: 06/25/22 4:49 PM Result Value Ref Range Glucose, POC 169 70 - 199 mg/dL Sepsis Lactate w/ Reflex Collection Time: 06/25/22 5:00 PM Result Value Ref Range Sepsis Lactate 2.4 (Critical) 0.7 - 2.0 mmol/L POCT glucose Collection Time: 06/25/22 5:37 PM Result Value Ref Range Glucose, POC 151 70 - 199 mg/dL POCT glucose Collection Time: 06/25/22 6:33 PM Result Value Ref Range Glucose, POC 137 70 - 199 mg/dL Sepsis Lactate w/ Reflex Collection Time: 06/25/22 7:57 PM Result Value Ref Range Sepsis Lactate 1.3 0.7 - 2.0 mmol/L POCT glucose Collection Time: 06/25/22 8:00 PM Result Value Ref Range Glucose, POC 57 (L) 70 - 199 mg/dL Glucose comment 1 Use This Result POCT glucose Collection Time: 06/25/22 8:32 PM Result Value Ref Range Glucose, POC 249 (H) 70 - 199 mg/dL POCT glucose Collection Time: 06/25/22 9:02 PM Result Value Ref Range Glucose, POC 225 (H) 70 - 199 mg/dL POCT glucose Collection Time: 06/25/22 9:45 PM Result Value Ref Range Glucose, POC 229 (H) 70 - 199 mg/dL Glucose comment 1 Use This Result POCT glucose Collection Time: 06/25/22 10:32 PM Result Value Ref Range Glucose, POC 222 (H) 70 - 199 mg/dL POCT glucose Collection Time: 06/25/22 11:00 PM Result Value Ref Range Glucose, POC 257 (H) 70 - 199 mg/dL Glucose comment [address] head without contrast Result Date: 06/25/2022 Narrative: EXAM DESCRIPTION: CT HEAD WO CONTRAST REASON FOR STUDY: AMS, stroke alert patient TECHNIQUE: Axial images acquired through the brain without intravenous contrast. Images stored on PACS. Automated exposure control was used as a dose optimization technique for this examination. COMPARISON:06/16/2020 FINDINGS: BRAIN: No hemorrhage, edema or mass effect. No recent infarct. Nonspecific periventricular and subcortical white matter hypoattenuation which can be seen as sequela of chronic small vessel ischemic disease. Age-appropriate cerebral volume loss with ex vacuo dilatation of the ventricular system. No acute intraventricular hemorrhage. Basal ganglial and cerebellar calcifications. EXTRA-AXIAL SPACES: No fluid collections. No masses. CALVARIUM: No fracture. SINUSES/MASTOIDS: Mild mucosal thickening of the ethmoid air cells. Otherwise, no fluid or mucosal thickening. ORBITS: No significant abnormality. OTHER: No other significant abnormality. IMPRESSION: 1. No acute intracranial findings. THIS IS AN ELECTRONICALLY VERIFIED FINAL REPORT 06/25/2022 6:42 PM - Electronically signed by Oliverio Crump M.D. AT T: Report ID: [id number] Reading Location: [id number] CT Chest Abdomen Pelvis W Contrast Result Date: 06/25/2022 Narrative: EXAM DESCRIPTION: CT CHEST ABDOMEN PELVIS W CONTRAST REASON FOR STUDY: AMS [facility] from [facility] with complaint of greenish vaginal discharge and vaginal discomfort for 2 days without other acute complaint. CBG 148 en route. Alert, oriented x4. TECHNIQUE: CT scan of the chest, abdomen, and pelvis performed with intravenous and without oral contrast using helical scanning technique with dynamic intravenous contrast injection. Reconstructed coronal and sagittal MPR images reviewed.All images stored on PACS. Automated exposure control was used as a dose optimization technique forthis examination. CONTRAST TYPE/DOSE: 93mL of IOVERSOL 350 MG IODINE/ML INTRAVENOUS SYRINGE injected via right arm IV COMPARISON: 06/21/2020 06/17/2020 REFERENCE: Per ACR white paper recommendations,unless otherwise specified no follow-up imaging is recommended for incidental renal and adrenal lesions per consensus recommendations based on imaging criteria. Further lab evaluation could be pursued based on clinical findings. FINDINGS: CHEST LUNGS: Bilateral diffuse ground-glass infiltrate. Bibasilar atelectasis. PLEURA: Trace pleural effusions. MEDIASTINUM/TAYLOR: No identified masses or abnormal nodes. HEART: Severe cardiomegaly. Small pericardial effusion. VASCULATURE CHEST: No thoracic aortic aneurysm or dissection. AXILLA: No adenopathy. CHEST WALL: No masses. No subcutaneous air. HARDWARE/LINES/TUBES: None. MUSCULOSKELETAL CHEST: Right breast subcutaneous fluid collection measuring 5cm appear stable. ABDOMEN/PELVIS LIVER: Normal size. No identified cystic or solid masses. GALLBLADDER: No acute findings. BILE DUCTS: No intrahepatic or extrahepatic ductal dilatation. SPLEEN: Normal size. No focal lesions. PANCREAS: No identified cystic or solid masses. No significant calcifications. No adjacent inflammation or peripancreatic fluid collections. Pancreatic duct not dilated. ADRENALS: Normal. KIDNEYS/URINARY TRACT: No identified significant cystic or solid masses. No visualizedstones. No hydronephrosis or hydroureter. Symmetric enhancement. Urinary bladder is unremarkable. GI: No dilated bowel loops. No obvious wall thickening. Normal appendix. No significant diverticulardisease. PERITONEUM: No ascites or free air. RETROPERITONEUM: No mass or adenopathy. REPRODUCTIVE: U terus unremarkable. No adnexal masses. VASCULATURE ABDOMEN: No abdominal aortic aneurysm. MUSCULOSKELETAL ABDOMEN PELVIS: No acute finding. OTHER: Large amount of subcutaneous edema is evidence for diffuse anasarca. Midline anterior abdominal wall fluid collection measuring 5 cm appear stable. IMPRESSION: 1. Small pleural effusions. Bilateral mild ground-glass density likely evidence for edema. 2. Severe cardiomegaly. 3. No acute findings in the abdomen or pelvis. THIS IS AN ELECTRONICALLY VERIFIED FINAL REPORT 06/25/2022 7:21 PM - Electronically signed by Luisito Elkins M.D. RW T: Report ID: [id number] Reading Location: [place] [id number] ASSESSMENT/PLAN: Principal Problem: Hypoglycemia Resolved Problems: No resolved hospital problems. Hypoglycemia POA UTI Generalised anasarca Bilateral AKA Hypertension HLD H/o Dementia Plan - secondary to lantus given at [facility] - recd D50 here and blood sugars are elevated - continue to monitor Blood sugar, holding SSI - urine suggestive of UTI, continue IV rocephin, pending cultures - ? Hypoalbuminemia vs CHF vs fluid overload - ordered one time dose of lasix, CT abdomen does not show evidence of cirrhosis - ordered Echo, last Echo done in 2019 shows EF of 55-60% - secondary to osteomyelitis of foot with h/o PVD - controlled on PO norvasc, continue same - continue statin - continue to monitor DVT prophylaxis Full Code ESTIMATED LENGTH OF STAY: greater than 2 midnights Approximate time spent for chart review, assessment, interview, and note - 60 min I spent a total of 60 Face to Face minutes of which more than 50% of the time was spent in counseling and coordination of care. This time included: Reviewing patient case, interviewing examining patient, developing plan of care, documentation, counseling at bedside. Medical Decision Making Complexity: Moderate DVT prophylaxis:Lovenox PT/OT: Non ambulatory Max Iverson MD 06/25/2022 11:33 PM documented in this encounter Nursing Notes * Miriam Ware RN - 06/28/2022 4:57 PM CDT Pt transferred to [facility] with all belongings. Alert and comofrtable * Miriam Ware RN - 06/28/2022 4:38 PM CDT Pt alert and denies any pain or distress. Healed areas on coccyx, mepilex to stage 2 reddish area. All belongings with pt. Called report to SPENCER Christina at [facility] and all records with pt andall meds * Miriam Ware RN - 06/28/2022 4:00 PM CDT No pain and turned with help. Comfortable and diabetic management booklet given to pt. No distress and ready to go back to [facility] home. Called her daughter she would be leaving and also notified [facility]. * Miriam Ware RN - 06/28/2022 12:32 PM CDT Pt turned and assisted with all care. Mepilex replaced to stage 2 on buttock/sacrum pt alert and cooperative. Vitals stable and pt slightly diaphoretic,blood sugars monitored and pt eating at this time. Pt made aware of transfer to [facility] today and will send all transfer papers with pt * Lesa Arevalo RN - 06/27/2022 5:00 PM CDT This RN assumed care at 1500. Blood transfusion was running. Completed at 1630. Pt remains stable. Insulin to be given with dinner. Pt denies pain. Pt remains free of injuries. Isogel pump added to bed for low air-loss. * Cecilia Zepeda RN - 06/27/2022 2:00 PM CDT The one unit of packed RBC's continues to infuse in well. No transfusion reactions were noted. * Cecilia Zepeda RN - 06/27/2022 1:00 PM CDT The one unit packed RBC's was begun at this time. No transfusion reactions were noted. The patient is tolerating the blood transfusion well. * Saranya Cramer RN - 06/27/2022 12:07 PM CDT 06/27/22 1207 Pressure Ulcer/Pressure Injury 06/25/22 Coccyx Date First Assessed/Time First Assessed: 06/25/22 2348 Present on Hospital Admission: Yes Location:Coccyx Description Non-intact, red/pink wound bed (c/w Stage 2, open, no depth, no slough) Staging Stage 2 Angela-wound Assessment Dry;Color appropriate for ethnicity Margins Defined edges Drainage Amount None Dressing Status Changed Dressing/Intervention Cleansed (border foam) Wound Length (cm) 0.6 cm Wound Width (cm) 0.6 cm Wound Depth (cm) 0.1 Shape Circular Pressure Ulcer/Pressure Injury 06/25/22 Left Gluteal fold (horizontal junction between the thigh and buttock) Date First Assessed/Time First Assessed: 06/25/22 2242 Present on Hospital Admission: Yes Location Orientation: Left Location: Gluteal fold (horizontal junction between the thigh and buttock) Pressure Ulcer Status Healing Description (Red area. Healing PI.) Staging (Old healing PI. Previous stage unknown. Small open red area.) Angela-wound Assessment Hypopigmented (scarring) Margins Attached edges Drainage Amount None Dressing/Intervention Cleansed;Topical barrier (Comment-type) (zinc oxide applied) Shape Irregular Pressure Ulcer/Pressure Injury 06/27/22 Left;Posterior Thigh Date First Assessed/Time First Assessed: 06/27/22 1207 Present on Hospital Admission: Yes Location Orientation: Left;Posterior Location: Thigh Description Intact, localized purple or maroon in color (Deep tissue ulcer/injury) Staging Deep tissue ulcer/injury Angela-wound Assessment Blanchable erythema Margins Attached edges Drainage Amount None Dressing Status Open to air Dressing/Intervention Cleansed Wound Length (cm) 0.2 cm Wound Width (cm) 0.5 cm Wound Depth (cm) 0 Shape Linear Wound Care Consult Note: Reason for visit- wounds to buttocks and coccyx. Patient reported that she lives at [facility], and spends a majority of her time in a wheelchair. Patient has multiple linear injuries on left posterior thigh. Some lines are hypopigmented. Some are tejas and blanchable. One tejas and blanchable linear injury has small DTI within the line. Patient is dark skin complexion. Suspect that small DTI was present on admission. Unable to photo wounds at this moment due to unable to access [place] at this moment. Reviewed pertinent medical history/Labs Level of Consciousness: alert and oriented Condition of Bony Prominences: Heels: N/A, bilateral AKA. Elbows: WNL Coccyx/Buttock: See above. 2 small stage 2 pressure injury noted on coccyx. Same size wounds. Prevention in Use: Bordered Foam to sacrum Chair cushion type: waffle recommended Mattress type: IsoFlex. Instructed SPENCER Brooks to apply pump to bed to make low air loss. Moisture Control: Wicking pad Comment/Suggestion: Turn and reposition patient approximately every 2 hours. Float heels off of bedwith pillows or heel suspension boots. Plan to follow up as needed. documented in this encounter ED Notes * Flaquita Perez PA - 06/25/2022 6:35 PM CDT Images from the original note were not included. CHIEF COMPLAINT: Chief Complaint Patient presents with Vaginal Discharge HPI 9:51 PM Iris Pascual is a 67 y.o. female with extensive history of diabetes, hypertension, heart disease, bilateral breast cancer in remission, dementia, bilateral [id number] amputations presenting to the ED c/o green vaginal discharge. EMS gave report to nurse that patient has been experiencing green vaginal discharge. Patient unaware of this discharge. When I called the [facility] I spoke with her primary nurse, Nalini. Nalini discussed that patient's abdomen has been more distended than normal. She has been experiencing hypoglycemia that has been difficult to control, she has been altered probably due to hypoglycemia and she reports the vaginal discharge is chronic and is being treated for it. Patient was given 20 units of insulin as blood sugar was over 400. Patient then did not eat after giving this insulin at 11:30 a.m.. Patient is a very poor historian and complaining of pressure ulcers on her bottom. Patient denies any pain at this time aside from this. Patient reports they did not let her eat after she had the 20 units of Lantus at her fci because the fci said said they will feed you at the ER. ?? Pt poor historian History provided by patient PCP: Zeke Puente MD PAST MEDICAL HISTORY Past Medical History: Diagnosis Date Dementia (CMS/HCC) Diabetes mellitus (CMS/HCC) Hypertension PAST SURGICAL HISTORY Past Surgical History: Procedure Laterality Date HERNIA REPAIR FAMILY HISTORY Family History Problem Relation Age of Onset Diabetes Mother Heart disease Father No Known Problems Sister Diabetes Brother No Known Problems Daughter No Known Problems Son No Known Problems Son No Known Problems Son MEDICATIONS GIVEN IN THE ED Medications dextrose (concentrated solution) 50 % CONCENTRATED solution 25 g (25 g intravenous Given 06/25/22 1615) cefTRIAXone (ROCEPHIN) 1,000 mg/10 mL in sterile water (premix) 1,000 mg (1,000 mg intravenous Given 06/25/22 171) ioversoL (OPTIRAY 350) syringe 100 mL (93 mL intravenous Contrast Given 06/25/22 171) dextrose (concentrated solution) 50 % CONCENTRATED solution 25 g (25 g intravenous Given 06/25/222003) CURRENT HOME MEDICATIONS No current facility-administered medications for this encounter. 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, Disp: 30 tablet, Rfl: 1 oxyCODONE (ROXICODONE) 5 mg immediate release tablet, Take 1 tablet (5 mg total) by mouth every 4 (four) hours as needed for pain, Disp: 30 tablet, Rfl: [address] (PROTONIX) 40 mg EC tablet, Take 1 tablet (40 mg total) by mouth daily, Disp: 30 tablet, Rfl: 11 ALLERGIES Allergies Allergen Reactions Codeine Phosphate Nausea & Vomiting SOCIAL HISTORY Social History Tobacco Use Smoking status: Never Smokeless tobacco: Never Substance and Sexual Activity Drug use: No Sexual activity: Not on file Alcohol Use: Not on file PHYSICAL EXAM TRIAGE VITAL SIGNS: ED Triage Vitals Temp Pulse Resp BP SpO2 06/25/22 1412 06/25/22 1410 06/25/22 1410 06/25/22 1412 06/25/22 1410 36.9 ??C (98.4 ??F) 67 19 (!) 132/34 95 % Temp src Heart Rate Source Patient Position BP Location FiO2 (%) 06/25/22 1412 06/25/222034 -- 06/25/222034 -- Oral Monitor Right arm Height Height Method Weight Weight Method -- -- 06/25/22 1412 06/25/22 141 75 kg (165 lb 5.5 oz) EMS stretcher scale Physical Exam Vitals and nursing note reviewed. Exam conducted with a administrative support associate present. Constitutional: Appearance: Normal appearance. She is obese. She is ill-appearing. She is not toxic-appearing or diaphoretic. Comments: Very sleepy HENT: Head: Normocephalic and atraumatic. Nose: Nose normal. Mouth/Throat: Mouth: Mucous membranes are moist. Pharynx: Oropharynx is clear. Eyes: Extraocular Movements: Extraocular movements intact. Conjunctiva/sclera: Conjunctivae normal. Pupils: Pupils are equal, round, and reactive to light. Cardiovascular: Rate and Rhythm: Normal rate and regular rhythm. Heart sounds: Normal heart sounds. No murmur heard. No friction rub. No gallop. Pulmonary: Effort: Pulmonary effort is normal. No respiratory distress. Breath sounds: Normal breath sounds. No stridor. No wheezing, rhonchi or rales. Chest: Breasts: Right: No bleeding or nipple discharge. Mass: There are what feels like masses to the bilateral breast near the nipple. Left: No bleeding or nipple discharge. Comments: Both breasts have hard nodules in them near nipples Abdominal: General: Abdomen is flat. Palpations: Abdomen is soft. Tenderness: There is no abdominal tenderness. There is no right CVA tenderness, left CVA tenderness, guarding or rebound. Comments: Patient has a large central mass that is hard to palpation. No tenderness to palpation ofthis area. Genitourinary: Pubic Area: No rash. Labia: Right: No rash, tenderness or lesion. Left: No rash, tenderness or lesion. Urethra: Urethral lesion (There was a skin toned lesion next to urethra thatI do believe is the source of bleeding. It was tender to the touch.) present. No urethral swelling. Vagina: No vaginal discharge, erythema, tenderness, bleeding, lesions or prolapsed vaginal zamora. Cervix: Normal. Musculoskeletal: General: Normal range of motion. Cervical back: Normal range of motion and neck supple. Right Lower Extremity: Right leg is amputated above knee. Left Lower Extremity: Left leg is amputated above knee. Skin: General: Skin is warm and dry. Neurological: General: No focal deficit present. Mental Status: She is alert and oriented to person, place, and time. Mental status is at baseline. Psychiatric: Mood and Affect: Mood normal. LABS Labs Reviewed URINALYSIS AND REFLEX TO MICROSCOPIC AND CULTURE - Abnormal Result Value Color, ur Yellow Clarity, ur Turbid (*) Specific gravity, ur 1.012 pH, urine 5.0 Protein, ur ql 1+ (*) Glucose, ur ql 3+ (*) Ketones, ur Negative Bilirubin, ur Negative Blood, ur 1+ (*) Urobilinogen, ur 4.0 (*) Nitrite, ur Negative Leukocyte esterase, ur 3+ (*) UA reflex comment Reflex to microscopic UA will be performed. Narrative: Urine pH is affected by diet, medications, systemic acid-base disturbances, and renal tubular function. pH may affect urinary stone formation. For example, urine pH below 6.0 may help reduce the tendency for calcium phosphate stones and pH greater than 6.0 may reduce the tendency for uric acid stone formation. Source: [facility] [employer].Last revised 03-23-2017 COMPREHENSIVE METABOLIC PANEL - Abnormal Sodium 134 (*) Potassium, pl 3.9 Chloride 95 (*) CO2 31 Anion gap 8 BUN 29 (*) Creatinine 0.90 Glucose 54 (*) Calcium 8.2 (*) Bilirubin, total 0.5 Protein, pl 7.7 Albumin 2.7 (*) Alk phos 32 (*) ALT 6 (*) AST 16 CBC WITH AUTO DIFFERENTIAL - Abnormal WBC 9.9 Hgb 7.0 (*) Hct 23.4 (*) Plt 358 MPV 9.2 RBC 2.54 (*) MCV 92.1 MCH 27.6 MCHC 29.9 (*) RDW CV 19.9 (*) RDW SD 65.6 (*) NRBC abs 0.00 DIFFERENTIAL AUTO - Abnormal Neutrophil abs 7.5 (*) Imm gran abs 0.1 Lymphocyte abs 1.3 Monocyte abs 0.9 (*) Eosinophil abs 0.1 Basophil abs 0.0 Neutrophil pct 75.5 Imm gran pct 1.0 Lymphocyte pct 13.6 Monocyte pct 8.6 Eosinophil pct 0.9 Basophil pct 0.4 SEPSIS LACTATE WITH REFLEX - Abnormal Sepsis Lactate 2.4 (*) URINALYSIS, MICROSCOPIC ONLY - Abnormal WBC, ur >50 (*) RBC, ur >50 (*) Epithelial cells, squamous, ur 6-10 (*) Bacteria, ur 4+ (*) Yeast, ur 4+ (*) Culture Reflex Comment Reflex to urine culture will be performed. POCT GLUCOSE DEVICE - Abnormal Glucose, POC 47 (*) Glucose comment 1 Will Repeat Test Glucose comment 2 Use This Result Glucose comment 3 RN/MD Notified POCT GLUCOSE DEVICE - Abnormal Glucose, POC 64 (*) Glucose comment 1 Use This Result POCT GLUCOSE DEVICE - Abnormal Glucose, POC 62 (*) Glucose comment 1 Use This Result POCT GLUCOSE DEVICE - Abnormal Glucose, POC 55 (*) POCT GLUCOSE DEVICE - Abnormal Glucose, POC 57 (*) Glucose comment 1 Use This Result POCT GLUCOSE DEVICE - Abnormal Glucose, POC 249 (*) POCT GLUCOSE DEVICE - Abnormal Glucose, POC 225 (*) POCT GLUCOSE DEVICE - Abnormal Glucose, POC 229 (*) Glucose comment 1 Use This Result URINE CULTURE EGFR eGFR 70 SEPSIS LACTATE WITH REFLEX Sepsis Lactate 1.3 POCT GLUCOSE DEVICE Glucose, POC 80 POCT GLUCOSE DEVICE Glucose, POC 169 POCT GLUCOSE DEVICE Glucose, POC 151 POCT GLUCOSE DEVICE Glucose, POC 137 RADIOLOGY No results found. ED COURSE/MEDICAL DECISION MAKING Differential diagnosis included but not limited to metastatic cancer, hernia, obstruction, incarcerated bowel, other Patient's medical records were reviewed. I discussed management or test interpretation with the following outside physician, caregiver, [facility]ci staff: [facility] staff nurseNalini ED Course as of 06/25/222 Time: 06/25 1430 Comment: Nurse Philippe informed me while straight cathing patient she encountered a lot of blood. Unsure if it was coming from vagina or urethra. Will obtain pelvic. By: Flaquita Perez PA Time: 06/25 2230 Comment: Spoke with Nalini who is the nurse for the patient at her fci. We discussed what brings the patient to the fci. She reports patient refused to go to [facility] that is where she typically goes. Nurse reports that all night the patient struggled with hypoglycemia down to the 50s. Her agency nurse gave her 20 units of insulin at 11:30 a.m. and patient did not eat anything afterwards. Nurse reports that patient's vaginal discharge is not new and she has been treated for this. Currently patient's blood glucose is 62. We are giving her orange juice, peanut butter, Dylan crackers and sandwich to try and increase her sugar. Patient is alert and oriented x4 and will monitor at this time. By: Flaquita Perez PA Time: 06/25 1848 Comment: Patient's blood sugar has remained steady at 1:50 a.m. after 1 amp of D50. By: Flaquita Perez PA Time: 06/25 1848 Comment: Concerned about regrowth the patient's breast cancer as both breasts are very hard to palpation near the nipples. Will get CT scan of chest. Also concern for mass and patient's abdomen as there is a large round mass centrally located in patient's abdomen that is nontender to palpation. With fci staff noticing patient's abdomen becoming more distended. By: Flaquita Perez PA Time: 06/25 1849 Comment: Care transferred to Majo Stephens at shift change discussed patient case, pertinent findings and plan for the patient. She accepts care of the patient at this time. By: Flaquita Perez PA Time: 06/25 1850 Comment: Patient does have urinary tract infection. Will treat with Rocephin. By: Flaquita Perez PA Procedures FINAL IMPRESSION Hypoglycemia Urinary tract infection without hematuria, site unspecified Anemia, unspecified type DISPOSITION: Admit This examination was transcribed using the [employer] voice recognition system without human touch up painter hand. In an effort to expedite patient care, this report has not been adjusted for typographical, grammatical, and syntax by a trained biomedical service engineer. Flaquita Perez PA 06/25/22 [id number] Cosigned by Laith Deutsch MD at 06/26/2022 7:05 AM CDT Associated attestation - Laith Deutsch MD - 06/26/2022 7:05 AM CDT ED Attestation Based on the medical record the care appears appropriate. * Jessenia Rivera RN - 06/25/2022 3:12 PM CDT Upon initial assessment, pt diaphoretic, lethargic, when asked how pt feels, pt states, I think mysugar's low . Capillary blood glucose 47. Pt given 2 orange juices,, dylan crackers and turkey sandwich, provider notified. Jessenia Rivera, SPENCER 06/25/22 0516 * Bryant Wright RN - 06/25/2022 2:07 PM CDT Patient from [facility] with complaint of greenish vaginal discharge and vaginal discomfort for 2days without other acute complaint. CBG 148 en route. Alert, oriented x4. documented in this encounter Miscellaneous Notes * Provider Query - Elias Abraham MD - 06/28/2022 12:20 PM CDT Please specify the TYPE and ACUITY of Heart Failure, and document in the medical record and on the form below. __x_ Chronic Combined Systolic and Diastolic ___ Acute on Chronic Combined Systolic and Diastolic ___ Other, specify below Additional Provider Response: Clinical Indicators/Treatments: Lungs clear Generalized anasarca No BNP Ct chest on 06/25: small pleural effusions, bilateral ground glass density likely evidence for edema. Severe cardiomegaly Echo 06/27: Ejection Fraction = 30-35% E/E prime ratio is >15 suggesting a high pulmonary wedge pressure and LV diastolic dysfunction. Treatment: IV lasix x1 then po Use of terms such as likely, suspected, possible, or probable (associated with a specific diagnosisthat is being evaluated, monitored, or treated as if it exists) are acceptable and can be coded in the inpatient setting when documented at the time of discharge. This documentation will become part of the patient???s medical record. Sincerely, Renay Prieto RN BSN * Provider Query - Elias Abraham MD - 06/28/2022 12:20 PM CDT Specify if the diagnosis acute cystitis with hematuria has been confirmed or ruled out after study. ___ Diagnosis ruled out _x__ Diagnosis confirmed ___ Other, specify below Additional Provider Response: Clinical Indicators/Treatments: Need acute cystitis with hematuria confirmed or ruled out please Latest Reference Range & Units 06/25/22 16:41 Leukocyte esterase, ur Negative 3+ ! WBC, ur 0 - 5 /HPF >50 ! Urine Culture: Less than 100,000 colonies/mL (clinically insignificant growth based on current clinical standards) Treatment: IV antibiotics Use of terms such as likely, suspected, possible, or probable (associated with a specific diagnosisthat is being evaluated, monitored, or treated as if it exists) are acceptable and can be coded in the inpatient setting when documented at the time of discharge. This documentation will become part of the patient???s medical record. Sincerely, Renay Prieto RN BSN * Provider Query - Elias Abraham MD - 06/28/2022 12:19 PM CDT Specify a diagnosis that accurately reflects the lab findings, and document in the medical record and on the form below. __x_ Hyponatremia ___Clinically insignificant abnormal laboratory findings ___Other, specify below Additional Provider Response: Clinical Indicators/Treatments: Latest Reference Range & Units 06/25/22 16:06 06/26/22 05:26 06/27/22 04:05 06/28/22 08:10 Sodium 135 - 145 mmol/L 134 (L) 133 (L) 130 (L) 135 Treatment: monitor labs Use of terms such as likely, suspected, possible, or probable (associated with a specific diagnosisthat is being evaluated, monitored, or treated as if it exists) are acceptable and can be coded in the inpatient setting when documented at the time of discharge. This documentation will become part of the patient???s medical record. Sincerely, Renay Prieto RN BSN * Plan of Care - Sabrina Prieto RN - 06/27/2022 11:04 PM CDT Goals: Clinical Goals for the Shift: Rest and comfort Summary: Pt resting in bed, repositioned for comfort. Pt incontinent of urine and stool, angela care done and pad changed. Pt rested well through out shift. Neuro: Pt A&Ox3 Cardio: Pt not on tele Resp: Pt on RA, lungs are clear Problem: Lack of Knowledge: Goal: Ability to state ways to decrease the risk of falls will improve Outcome: Progressing Problem: Safety: Goal: Will remain free from falls Outcome: Progressing Goal: Will remain free from injury from falls Outcome: Progressing Goal: Will remain free from falls and injury in home environment Outcome: Progressing Problem: Activity: Goal: Mobility will [...] of discharge needs will improve Outcome: Progressing * Plan of Luz - Cecilia Zepeda RN - 06/27/2022 10:31 AM CDT Problem: Lack of Knowledge: Goal: Ability to state ways to decrease the risk of falls will improve Outcome: Progressing Problem: Safety: Goal: Will remain free from falls Outcome: Progressing Goal: Will remain free from injury from falls Outcome: Progressing Goal: Will remain free from falls and injury in home environment Outcome: Progressing Problem: Activity: Goal: Mobility will [...] to fullest extent possible Outcome: Progressing Goals: Good blood sugars. No pain. Good hemoglobin and hematocrit results. Get 1 unit of blood. No falls or injuries. Patient safety. Summary: * Plan of Luz - Kita Elam RN - 06/27/2022 5:03 AM CDT Goals: Rest, Safety, Monitor blood sugar levels Summary: Resting at intervals. No episodes of hypoglycemia noted. Call dean within easy reach, Bed alarm on for safety. Frequent rounds made. Problem: Lack of Knowledge: Goal: Ability to state ways to decrease the risk of falls will improve Outcome: Progressing Problem: Safety: Goal: Will remain free from falls Outcome: Progressing Problem: Lack of Knowledge: Goal: Understanding of ways to prevent future skin breakdown will improve Outcome: Progressing Problem: Skin Integrity: Goal: Risk for impaired skin integrity will decrease Outcome: Progressing * Plan of Care - Suzie Wilcox - 06/26/2022 12:08 PM CDT Problem: Lack of Knowledge: Goal: Ability to state ways to decrease the risk of falls will improve Outcome: Progressing Goals: patient safety, normal blood sugar Summary: * ED Re-evaluation Note - Majo Stephens PA - 06/25/2022 9:04 PM CDT ED Re-evaluation 6:15 PM Assumed care of the pt from NITHYA Sams. 7:[address] scans show: IMPRESSION: 1. Small pleural effusions. Bilateral mild ground-glass density likely evidence for edema. 2. Severe cardiomegaly. 3. No acute findings in the abdomen or pelvis. IMPRESSION: 1. No acute intracranial findings. 8:00 PM Blood sugar 57. Amp D50 ordered. 8:30 PM Blood sugar 249. 9:00 PM Blood sugar 225. Will speak with hospitalist for admission due to UTI and hypoglycemia. 9:[address] Iverson, hospitalist for admission. Majo Stephens PA 06/25/222135 Majo Stephens PA 06/25/222137 documented in this encounter Plan of Treatment Pending Results Name Type Priority Associated Diagnoses Date /Time Crossmatch Lab Timed 06/26/2022 9:2 5 AM CDT Scheduled Orders Name Type Priority Associated Diagnoses Orde r Schedule Crossmatch Lab Timed Once for 1 Occ urrences starting 06/26/2022 until 06/26/2022 documented as of this encounter Procedures Procedure Name Priority Date/Time Associated Diagnosis Comments POCT GLUCOSE DEVICE Routine 06/28/2022 4 :12 PM CDT POCT GLUCOSE DEVICE Routine 06/28/2022 1 1:33 AM CDT EGFR Routine 06/28/2022 8:10 AM CDT DIFFERENTIAL AUTO Routine 06/28/2022 8:1 0 AM CDT CBC WITH AUTO DIFFERENTIAL Routine 06/28/2022 8:10 AM CDT BASIC METABOLIC PANEL Routine 06/28/2022 8:10 AM CDT POCT GLUCOSE DEVICE Routine 06/28/2022 7 :41 AM CDT POCT GLUCOSE DEVICE Routine 06/28/2022 3 :48 AM CDT POCT GLUCOSE DEVICE Routine 06/27/2022 8 :44 PM CDT IRON PROFILE W/ IBC Routine 06/27/2022 6 :39 PM CDT POCT GLUCOSE DEVICE Routine 06/27/2022 4 :07 PM CDT TRANSFUSE RED BLOOD CELLS Timed 06/27/2022 1:00 PM CDT POCT GLUCOSE DEVICE Routine 06/27/2022 1 1:24 AM CDT POCT GLUCOSE DEVICE Routine 06/27/2022 1 1:23 AM CDT DIFFERENTIAL AUTO Timed 06/27/2022 9:0 9 AM CDT CBC WITH AUTO DIFFERENTIAL Timed 06/27/2022 9:09 AM CDT POCT GLUCOSE DEVICE Routine 06/27/2022 8 :42 AM CDT PREPARE RBC Timed 06/27/2022 8:08 AM CDT TRANSTHORACIC ECHO (TTE) COMPLETE W DOPPLER/CF W CONTRAST Routine 06/27/2022 7:09 AM CDT EGFR Routine 06/27/2022 4:05 AM CDT DIFFERENTIAL AUTO Routine 06/27/2022 4:0 5 AM CDT CBC WITH AUTO DIFFERENTIAL Routine 06/27/2022 4:05 AM CDT BASIC METABOLIC PANEL Routine 06/27/2022 4:05 AM CDT POCT GLUCOSE DEVICE Routine 06/27/2022 2 :39 AM CDT POCT GLUCOSE DEVICE Routine 06/26/2022 8 :43 PM CDT HEMOGLOBIN AND HEMATOCRIT Timed 06/26/2022 6:25 PM CDT POCT GLUCOSE DEVICE Routine 06/26/2022 4 :13 PM CDT POCT GLUCOSE DEVICE Routine 06/26/2022 1 1:40 AM CDT ABO/RH Timed 06/26/2022 9:25 AM CDT CROSSMATCH Timed 06/26/2022 9:25 AM CDT ANTIBODY SCREEN Timed 06/26/2022 9:25 AM CDT HC ANTIBODY SCREEN RBC Timed 9:25 AM CDT POCT GLUCOSE DEVICE Routine 06/26/2022 8 :46 AM CDT HEMOGLOBIN AND HEMATOCRIT STAT 06/26/2022 8:10 AM CDT EGFR Routine 06/26/2022 5:26 AM CDT DIFFERENTIAL AUTO Routine 06/26/2022 5:2 6 AM CDT CBC WITH AUTO DIFFERENTIAL Routine 06/26/2022 5:26 AM CDT BASIC METABOLIC PANEL Routine 06/26/2022 5:26 AM CDT POCT GLUCOSE DEVICE Routine 06/26/2022 1 2:15 AM CDT POCT GLUCOSE DEVICE Routine 06/25/2022 1 1:00 PM CDT POCT GLUCOSE DEVICE Routine 06/25/2022 1 0:32 PM CDT POCT GLUCOSE DEVICE Routine 06/25/2022 9 :45 PM CDT POCT GLUCOSE DEVICE Routine 06/25/2022 9 :02 PM CDT POCT GLUCOSE DEVICE Routine 06/25/2022 8 :32 PM CDT POCT GLUCOSE DEVICE Routine 06/25/2022 8 :00 PM CDT SEPSIS LACTATE WITH REFLEX Timed 06/25/2022 7:57 PM CDT POCT GLUCOSE DEVICE Routine 06/25/2022 6 :33 PM CDT POCT GLUCOSE DEVICE Routine 06/25/2022 5 :[address] CHEST ABDOMEN PELVIS W CONTRAST ED 06/25/2022 5:[address] HEAD WO CONTRAST ED 06/25/2022 5 :13 PM CDT SEPSIS LACTATE WITH REFLEX STAT 06/25/2022 5:00 PM CDT POCT GLUCOSE DEVICE Routine 06/25/2022 4 :49 PM CDT URINALYSIS AND REFLEX TO MICROSCOPIC AND CULTURE STAT 06/25/2022 4:41 PM CDT URINALYSIS, MICROSCOPIC ONLY STAT 06/25/2022 4:41 PM CDT URINE CULTURE STAT 06/25/2022 4:41 PM CDT EGFR STAT 06/25/2022 4:06 PM CDT DIFFERENTIAL AUTO STAT 06/25/2022 4:0 6 PM CDT CBC WITH AUTO DIFFERENTIAL STAT 06/25/2022 4:06 PM CDT COMPREHENSIVE METABOLIC PANEL STAT 06/25/2022 4:06 PM CDT POCT GLUCOSE DEVICE Routine 06/25/2022 4 :04 PM CDT POCT GLUCOSE DEVICE Routine 06/25/2022 3 :32 PM CDT POCT GLUCOSE DEVICE Routine 06/25/2022 3 :21 PM CDT POCT GLUCOSE DEVICE Routine 06/25/2022 3 :00 PM CDT POCT GLUCOSE DEVICE Routine 06/25/2022 2 :57 PM CDT documented in this encounter Results * POCT glucose (06/28/2022 4:12 PM CDT) [facility] Signature Glucose, POC 166 70 - 199 mg/dL [facility] Glucose comment 1 Use This Result [facility] Blood 06/28/2022 4:12 PM CDT 06/28/2022 4:12 PM CDT Result [facility] Elias Abraham MD LAB POCT ORDERABLES - D EVICE Final Result Performing Organization Address [facility] de Phone Number [place] [id number] [facility] [place] [address] * (ABNORMAL) POCT glucose (06/28/2022 11:33 AM CDT) Glucose, POC 246(H) 70 - 199 mg/dL [facility] Glucose comment 1 Use This Result [facility] Blood 06/28/2022 11:3 3 AM CDT 06/28/2022 11:33 AM CDT Elias Abraham MD LAB POCT ORDERABLES - D EVICE Final Result Performing Organization Address [facility] de Phone Number [address] [place] [address] * eGFR (06/28/2022 8:10 AM CDT) [facility] eGFR 81 mL/min/1. 73 m2 [facility] Comment: Interpretive Data Reference Interval Normal ?>/= [...] of Race in Diagnosing Kidney Disease, JASN 202). The CKD-EPI equation should not be used for patients with unstable renal function and has not been validated in children and those over 70. Current interpretive data was last reviewed 2021. Blood 06/28/2022 8:10 AM CDT 06/28/2022 8:32 AM CDT us Max Iverson MD LAB BLOOD ORDERABLES nal Result [facility] [address] [facility] Department [place] [address] * Differential, auto (06/28/2022 8:10 AM CDT) Neutrophil abs 6.3 1.7 - 6.5 K/cumm [facility] Imm gran abs 0.1 0.0 - 0.1 K/cumm [facility] Lymphocyte abs 1.4 0.8 - 3.3 K/cumm [facility] Monocyte abs 0.5 0.2 - 0.8 K/cumm [facility] Eosinophil abs 0.1 0.0 - 0.5 K/cumm [facility] Basophil abs 0.0 0.0 - 0.1 K/cumm [facility] Neutrophil pct 75.2 % [facility] Comment: Interpretive Data Percent cell count reference ranges are not reported, since discordance with absolute values may lead to misinterpretation of CBC data. Current Interpretive Data was last revised on 2017. Imm gran pct 0.8 % [facility] Comment: Interpretive Data Percent cell count reference ranges are not reported, since discordance with absolute values may lead to misinterpretation of CBC data. Current Interpretive Data was last revised on 2017. Lymphocyte pct 16.2 % [facility] Comment: Interpretive Data Percent cell count reference ranges are not reported, since discordance with absolute values may lead to misinterpretation of CBC data. Current Interpretive Data was last revised on 2017. Monocyte pct 6.3 % [facility] Comment: Interpretive Data Percent cell count reference ranges are not reported, since discordance with absolute values may lead to misinterpretation of CBC data. Current Interpretive Data was last revised on 2017. Eosinophil pct 1.0 % [facility] Comment: Interpretive Data Percent cell count reference ranges are not reported, since discordance with absolute values may lead to misinterpretation of CBC data. Current Interpretive Data was last revised on 2017. Basophil pct 0.5 % [facility] Comment: Interpretive Data Percent cell count reference ranges are not reported, since discordance with absolute values may lead to misinterpretation of CBC data. Current Interpretive Data was last revised on 2017. Blood 06/28/2022 8:10 AM CDT 06/28/2022 8:32 AM CDT Max Iverson MD LAB BLOOD ORDERABLES nal Result [place] [id number] [facility] Department [place] [address] * (ABNORMAL) CBC with auto differential (06/28/2022 8:10 AM CDT) WBC 8.4 3.8 - 9.9 K/cumm [facility] Hgb 8.4(L) 11.9 - 15.5 g/dL [facility] Hct 27.2(L) 35.6 - 45.5 % [facility] Plt 313 150 - 400 K/cumm [facility] MPV 9.6 9.1 - 12.3 fL [facility] RBC 2.97(L) 3.90 - 5.20 M/cumm [facility] MCV 91.6 81.3 - 96.4 fL [facility] MCH 28.3 27.1 - 33.3 pg [facility] MCHC 30.9(L) 32.3 - 35.7 g/dL [facility] RDW CV 19.2(H) 11.1 - 14.9 % [facility] RDW SD 62.7(H) 35.7 - 48.1 fL [facility] NRBC abs 0.00 0.00 - 0.01 K/cumm [facility] Blood 06/28/2022 8:10 AM CDT 06/28/2022 8:32 AM CDT Max Iverson MD LAB BLOOD ORDERABLES Fi nal Result Performing Organization Address [facility] Co de Phone Number [facility] [address] [place] [address] * (ABNORMAL) Basic metabolic panel (06/28/2022 8:10 AM CDT) [facility] Sodium 135 135 - 145 mmol/L [facility] Potassium, pl 3.6 3.3 - 4.9 mmol/L [facility] Chloride 97 97 - 110 mmol/L [facility] CO2 30 22 - 32 mmol/L [facility] Anion gap 8 2 - 15 mmol/L [facility] BUN 24 8 - 25 mg/dL [facility] Creatinine 0.80 0.60 - 1.10 mg/dL [facility] Glucose 152 70 - 199 mg/dL [facility] Comment: Interpretive Data Fasting glucose >/= 126 [...] classification and Diagnosis of Diabetes Diabetes Care 2021; 46: S19-S40. Current interpretive data was last revised 2022. Calcium 8.1(L) 8.5 - 10.3 mg/dL [facility] Blood 06/28/2022 8:10 AM CDT 06/28/2022 8:32 AM CDT Max Iverson MD LAB BLOOD ORDERABLES Fi nal Result Performing Organization Address [facility] de Phone Number [address] [place] [address] * POCT glucose (06/28/2022 7:41 AM CDT) Glucose, POC 178 70 - 199 mg/dL [facility] Glucose comment 1 Use This Result [facility] Blood 06/28/2022 7:41 AM CDT 06/28/2022 7:41 AM CDT Elias Abraham MD LAB POCT ORDERABLES - D EVICE Final Result Performing Organization Address City[facility]/ZIP Co de Phone Number [address] [place] [address] * POCT glucose (06/28/2022 3:48 AM CDT) Glucose, POC 174 70 - 199 mg/dL [facility] Glucose comment 1 Use This Result [facility] Blood 06/28/2022 3:48 AM CDT 06/28/2022 3:48 AM CDT Elias Abraahm MD LAB POCT ORDERABLES - D EVICE Final Result Performing Organization Address [facility] Co de Phone Number [address] [place] [address] * POCT glucose (06/27/2022 8:44 PM CDT) Glucose, POC 156 70 - 199 mg/dL [facility] Glucose comment 1 Use This Result [facility] Blood 06/27/2022 8:44 PM CDT 06/27/2022 8:44 PM CDT Elias Abraham MD LAB POCT ORDERABLES - D EVICE Final Result Performing Organization Address [facility] Co de Phone Number [address] [place] [address] * (ABNORMAL) Iron profile w/ IBC (06/27/2022 6:39 PM CDT) Iron 33(L) 35 - 145 mcg/dL [facility] TIBC 104(L) 250 - 400 mcg/dL [facility] Transferrin saturation 32 20 - 50 % [facility] Blood 06/27/2022 6:39 PM CDT 06/27/2022 7:17 PM CDT Elias Abraham MD LAB BLOOD ORDERABLES Fi nal Result Performing Organization Address [facility] Co de Phone Number [address] [place] [address] * Transfuse RBC (06/27/2022 4:34 PM CDT) Blood Elias Abraham MD BLOOD TRANSFUSION ORDER [place] Final Result Performing Organization Address [facility] de Phone Number [address] [place] [address] * Transfuse RBC: 1 Units (06/27/2022 4:34 PM CDT) Blood Elias Abraham MD BLOOD TRANSFUSION ORDER [place] Final Result * POCT glucose (06/27/2022 4:07 PM CDT) Glucose, POC 187 70 - 199 mg/dL [facility] Glucose comment 1 Use This Result [facility] Blood 06/27/2022 4:07 PM CDT 06/27/2022 4:07 PM CDT Elias Abraham MD LAB POCT ORDERABLES - D EVICE Final Result Performing Organization Address [facility] Co de Phone Number [address] [place] [address] * (ABNORMAL) POCT glucose (06/27/2022 11:24 AM CDT) Glucose, POC 323(H) 70 - 199 mg/dL [facility] Glucose comment 1 Use This Result [facility] Glucose comment 2 RN/MD Notified [facility] Glucose comment 3 Critical Value [facility] Blood 06/27/2022 11:2 4 AM CDT 06/27/2022 11:24 AM CDT Elias Abraham MD LAB POCT ORDERABLES - D EVICE Final Result Performing Organization Address [facility] Co de Phone Number [address] [place] [address] * (ABNORMAL) POCT glucose (06/27/2022 11:23 AM CDT) Glucose, POC 302(H) 70 - 199 mg/dL [facility] Blood 06/27/2022 11:2 3 AM CDT 06/27/2022 11:23 AM CDT Elias Abraham MD LAB POCT ORDERABLES - D EVICE Final Result Performing Organization Address [facility] de Phone Number [address] [place] [address] * (ABNORMAL) Differential, auto (06/27/2022 9:09 AM CDT) Pathologist [facility] Neutrophil abs 7.1(H) 1.7 - 6.5 K/cumm [facility] Imm gran abs 0.0 0.0 - 0.1 K/cumm [facility] Lymphocyte abs 1.4 0.8 - 3.3 K/cumm [facility] Monocyte abs 0.7 0.2 - 0.8 K/cumm [facility] Eosinophil abs 0.1 0.0 - 0.5 K/cumm [facility] Basophil abs 0.1 0.0 - 0.1 K/cumm [facility] Neutrophil pct 76.3 % [facility] Comment: Interpretive Data Percent cell count reference ranges are not reported, since discordance with absolute values may lead to misinterpretation of CBC data. Current Interpretive Data was last revised on 2017. Imm gran pct 0.4 % [facility] Comment: Interpretive Data Percent cell count reference ranges are not reported, since discordance with absolute values may lead to misinterpretation of CBC data. Current Interpretive Data was last revised on 2017. Lymphocyte pct 14.8 % [facility] Comment: Interpretive Data Percent cell count reference ranges are not reported, since discordance with absolute values may lead to misinterpretation of CBC data. Current Interpretive Data was last revised on 2017. Monocyte pct 7.0 % [facility] Comment: Interpretive Data Percent cell count reference ranges are not reported, since discordance with absolute values may lead to misinterpretation of CBC data. Current Interpretive Data was last revised on 2017. Eosinophil pct 1.0 % [facility] Comment: Interpretive Data Percent cell count reference ranges are not reported, since discordance with absolute values may lead to misinterpretation of CBC data. Current Interpretive Data was last revised on 2017. Basophil pct 0.5 % [facility] Comment: Interpretive Data Percent cell count reference ranges are not reported, since discordance with absolute values may lead to misinterpretation of CBC data. Current Interpretive Data was last revised on 2017. Blood 06/27/2022 9:09 AM CDT 06/27/2022 9:47 AM CDT us Elizabeth Ortez MD LAB BLOOD ORDERABLES Final Re sult [facility] [address] [facility] [place] [address] * (ABNORMAL) CBC with auto differential (06/27/2022 9:09 AM CDT) WBC 9.3 3.8 - 9.9 K/cumm [facility] Hgb 7.1(L) 11.9 - 15.5 g/dL [facility] Hct 22.8(L) 35.6 - 45.5 % [facility] Plt 363 150 - 400 K/cumm [facility] MPV 9.6 9.1 - 12.3 fL [facility] RBC 2.55(L) 3.90 - 5.20 M/cumm [facility] MCV 89.4 81.3 - 96.4 fL [facility] MCH 27.8 27.1 - 33.3 pg [facility] MCHC 31.1(L) 32.3 - 35.7 g/dL [facility] RDW CV 19.8(H) 11.1 - 14.9 % [facility] RDW SD 63.3(H) 35.7 - 48.1 fL [facility] NRBC abs 0.00 0.00 - 0.01 K/cumm [facility] Blood 06/27/2022 9:09 AM CDT 06/27/2022 9:47 AM CDT us Elizabeth Ortez MD LAB BLOOD ORDERABLES Final Re sult Performing Organization Address City/[facility]/ZIP Co de Phone Number [address] [place] [address] * POCT glucose (06/27/2022 8:42 AM CDT) Glucose, POC 189 70 - 199 mg/dL [facility] Glucose comment 1 Use This Result [facility] Blood 06/27/2022 8:42 AM CDT 06/27/2022 8:42 AM CDT Elias Abraham MD LAB POCT ORDERABLES - D EVICE Final Result Performing Organization Address City[facility]/ZIP Co de Phone Number [address] [place] [address] * Prepare RBC: 1 Units (06/27/2022 8:08 AM CDT) Units requested 1 [facility] Units requested Ready [facility] Unit Number [id number] [facility] Product code [id number] [facility] Blood Expiration Date [id number] [facility] Product Blood Type (for scanning) 5100 [facility] Product Blood Type OPOS [facility] Dispense Status DISPENSED [facility] Blood 06/27/2022 8:08 AM CDT 06/27/2022 8:08 AM CDT us Elias Abraham MD BLOOD BANK PRODUCT ORDE MORALES Final Result [facility] [address] [facility] [place] [address] * TRANSTHORACIC ECHO (TTE) COMPLETE W DOPPLER/CF W CONTRAST (06/27/2022 7:09 AM CDT) Anatomical Region Laterality Modality Ultrasound 06/27/2022 7:09 AM CDT Narrative 06/27/2022 9:13 PM CDT ? Adult Echocardiogram + ----- + :Name: IRIS PASCUAL Study Date: 06/27/2022 ?Status: [facility] ?: : ?Patient Location: [facility]^[id number]^Height: 41 in ?: : ?Weight: 141 lbBP: 115/71 mmHg: :: 1955 ? Gender: Female ?BSA: 1.2 m2 ?: :Reason For Study: chf ?: :Ordering Physician: ?: :IVERSON, MAX ?: : ? : :Performed By: Phuong ? : :Leonel, ELMERCS, RN ?: + ----- + Procedure A two-dimensional transthoracic echocardiogram with color flow and Doppler was performed. A contrast injection of Definity was performed to improve assessment of LV function. Left Ventricle Left ventricular chamber size is normal. There is normal left ventricular wall thickness. Left ventricular systolic function is moderately(30-44) reduced. Ejection Fraction = 30-35%. There is apical wall hypokinesis. There is no thrombus. Right Ventricle The right ventricle is normal in size and function. Atria The left atrial size is normal. Right atrial size is normal. There is no Doppler evidence for an atrial septal defect. Mitral Valve The mitral valve is normal. There is no mitral valve stenosis. There is mild mitral regurgitation. Tricuspid Valve The tricuspid valve is normal. There is mild tricuspid regurgitation. Right ventricular systolic pressure is normal. Aortic Valve The aortic valve is trileaflet. Aortic valve sclerosis' moderate'. Aortic valve gradient is 7 mm/Hg. LVOT velocity is 93 cm/s. Mild valvular aortic stenosis. Aortic valve area = 1.53 cm2. No aortic regurgitation is present. Pulmonic Valve The pulmonic valve is not well seen, but is grossly normal. Trace pulmonic valvular regurgitation. Great Vessels The aortic root is normal size. Pericardium Mild pericardial effusion. There are no echocardiographic indications of cardiac tamponade. Diastology E/E prime ratio is >15 suggesting a high pulmonary wedge pressure and LV diastolic dysfunction. Interpretation Summary Ejection Fraction = 30-35%. There is apical wall hypokinesis. E/E prime ratio is >15 suggesting a high pulmonary wedge pressure and LV diastolic dysfunction. There is mild mitral regurgitation. There is mild tricuspid regurgitation. Right ventricular systolic pressure is normal. Mild valvular aortic stenosis. Aortic valve area = 1.53 cm2. Trace pulmonic valvular regurgitation. Mild pericardial effusion. There are no echocardiographic indications of cardiac tamponade. + + :Measurements with Normals ?: :IVSd: ? (0.6-1.2 ?LVIDd: ?(3.5-5.7 ?? Ao root diam: ?(2.0-3.7 ?? : :0.76 cm ? cm) ? 4.7 cm ?cm) ?2.9 cm ? cm) ?: :LVPWd: ?(0.6-1.1 ?LVIDs: ?(3.1-4.6 ?? LA dimension: ?(1.9-4.0 ?? : :1.1 cm ?cm) ? 3.8 cm ?cm) ?3.7 cm ? cm) ?: + + MMode/2D Measurements & Calculations IVSs: 1.1 cm ? LVPWs: 1.5 cm ? FS: 18.6 % ?% IVS thick: 43.2 % ? EDV(Teich): 100.8 ml ? ESV(Teich): 62.0 ml ? LVOT diam: 2.0 cm Ao root area: 6.6 cm2 ? LVOT area: 3.1 cm2 Doppler Measurements & Calculations MV E max temo: ?Ao V2 max: ? LV V1 max PG: ?SV(LVOT): 58.7 ml 121.0 cm/sec ? 176.0 cm/sec ? 3.1 mmHg MV A max temo: ?Ao max PG: ? LV V1 mean P.8 cm/sec ?12.4 mmHg ?2.0 mmHg MV E/A: 3.0 ?Ao V2 mean: ?LV V1 max: ? 122.0 cm/sec ? 88.6 cm/sec ? Ao mean PG: ?LV V1 mean: ? 7.0 mmHg ? 63.3 cm/sec ? Ao V2 VTI: 35.2 cm LV V1 VTI: 18.7 cm ? YAMIL(I,D): 1.7 cm2 ? YAMIL(V,D): 1.6 cm2 ? TV V2 max: ? PA V2 max: ? RV V1 max: ? TR max temo: 63.8 cm/sec ?63.0 cm/sec ?45.8 cm/sec ?285.0 cm/sec TV max P.6 mmHg ??PA max P.6 mmHg ? TR max PG: ? 32.5 mmHg ? RVSP(TR): 40.5 mmHg ? RAP systole: 8.0 mmHg Electronically signed by: Zeke Arredondo MD 06/27/2022 09:13 PM Procedure Note Zeke Arredondo MD - 06/27/2022 Adult Echocardiogram + ----- + :Name: LOUISE JARADJESSICA Evans Study Date: 06/27/2022Status: MHB : : Patient Location: [address]^[id number]^Height: 41 in : : : 141 lbBP: 115/71 mmHg: :: 1955 Gender: FemaleBSA: 1.2 m2 : :Reason For Study: chf: :Ordering Physician:: :MAX IVERSON: :: :Performed By: Phuong: :DAPHNE Castaneda, RN: + ----- + Procedure A two-dimensional transthoracic echocardiogram with color flow and Dopplerwas performed. A contrast injection of Definity was performed to improve assessment of LV function. Left Ventricle Left ventricular chamber size is normal. There is normal left ventricularwall thickness. Left ventricular systolic function is moderately(30-44) reduced. Ejection Fraction = 30-35%. There is apical wall hypokinesis. There isno thrombus. Right Ventricle The right ventricle is normal in size and function. Atria The left atrial size is normal. Right atrial size is normal. There is no Doppler evidence for an atrial septal defect. Mitral Valve The mitral valve is normal. There is no mitral valve stenosis. There ismild mitral regurgitation. Tricuspid Valve The tricuspid valve is normal. There is mild tricuspid regurgitation.Right ventricular systolic pressure is normal. Aortic Valve The aortic valve is trileaflet. Aortic valve sclerosis' moderate'.Aortic valve gradient is 7 mm/Hg. LVOT velocity is 93 cm/s. Mild valvularaortic stenosis. Aortic valve area = 1.53 cm2. No aortic regurgitation ispresent. Pulmonic Valve The pulmonic valve is not well seen, but is grossly normal. Tracepulmonic valvular regurgitation. Great Vessels The aortic root is normal size. Pericardium Mild pericardial effusion. There are no echocardiographic indications of cardiac tamponade. Diastology E/E prime ratio is >15 suggesting a high pulmonary wedge pressure and LV diastolic dysfunction. Interpretation Summary Ejection Fraction = 30-35%. There is apical wall hypokinesis. E/E prime ratio is >15 suggesting a high pulmonary wedge pressure and LV diastolic dysfunction. There is mild mitral regurgitation. There is mild tricuspid regurgitation. Right ventricular systolic pressure is normal. Mild valvular aortic stenosis. Aortic valve area = 1.53 cm2. Trace pulmonic valvular regurgitation. Mild pericardial effusion. There are no echocardiographic indications of cardiac tamponade. + + :Measurements with Normals: :IVSd: (0.6-1.2 LVIDd: (3.5-5.7 Ao root diam:(2.0-3.7 : :0.76 cm cm) 4.7 cm cm) 2.9 cm cm): :LVPWd: (0.6-1.1 LVIDs: (3.1-4.6 LA dimension:(1.9-4.0 : :1.1 cm cm) 3.8 cm cm) 3.7 cm cm): + + MMode/2D Measurements & Calculations IVSs: 1.1 cm LVPWs: 1.5 cm FS: 18.6 % % IVS thick:43.2 % EDV(Teich): 100.8 ml ESV(Teich): 62.0 ml LVOT diam: 2.0 cm Ao root area: 6.6 cm2 LVOT area: 3.1 cm2 Doppler Measurements & Calculations MV E max temo: Ao V2 max: LV V1 max PG: SV(LVOT): 58.7ml 121.0 cm/sec 176.0 cm/sec 3.1 mmHg MV A max temo: Ao max PG: LV V1 mean P.8 cm/sec 12.4 mmHg 2.0 mmHg MV E/A: 3.0 Ao V2 mean: LV V1 max: 122.0 cm/sec 88.6 cm/sec Ao mean PG: LV V1 mean: 7.0 mmHg 63.3 cm/sec Ao V2 VTI: 35.2 cm LV V1 VTI: 18.7 cm YAMIL(I,D): 1.7 cm2 YAMIL(V,D): 1.6 cm2 TV V2 max: PA V2 max: RV V1 max: TR max temo: 63.8 cm/sec 63.0 cm/sec 45.8 cm/sec 285.0 cm/sec TV max P.6 mmHg PA max P.6 mmHg TR max P.5 mmHg RVSP(TR): 40.5mmHg RAP systole: 8.0 mmHg Electronically signed by: Zeke Arredondo MD 06/27/2022 09:13 PM us Max Iverson MD CV ECHO PROCEDURES Debbie l Result * eGFR (06/27/2022 4:05 AM CDT) eGFR 70 mL/min/1. 73 m2 [facility] Comment: Interpretive Data Reference Interval Normal ?>/= [...] interpretive data was last reviewed 2021. Blood 06/27/2022 4:05 AM CDT 06/27/2022 4:26 AM CDT Max Iverson MD LAB BLOOD ORDERABLES Fi nal Result [facility] [address] [facility] Department [place] [address] * (ABNORMAL) Differential, auto (06/27/2022 4:05 AM CDT) Neutrophil abs 6.7(H) 1.7 - 6.5 K/cumm [facility] Imm gran abs 0.1 0.0 - 0.1 K/cumm [facility] Lymphocyte abs 1.4 0.8 - 3.3 K/cumm [facility] Monocyte abs 0.7 0.2 - 0.8 K/cumm [facility] Eosinophil abs 0.1 0.0 - 0.5 K/cumm [facility] Basophil abs 0.0 0.0 - 0.1 K/cumm [facility] Neutrophil pct 75.2 % [facility] Comment: Interpretive Data Percent cell count reference ranges are not reported, since discordance with absolute values may lead to misinterpretation of CBC data. Current Interpretive Data was last revised on 2017. Imm gran pct 0.6 % [facility] Comment: Interpretive Data Percent cell count reference ranges are not reported, since discordance with absolute values may lead to misinterpretation of CBC data. Current Interpretive Data was last revised on 2017. Lymphocyte pct 15.1 % [facility] Comment: Interpretive Data Percent cell count reference ranges are not reported, since discordance with absolute values may lead to misinterpretation of CBC data. Current Interpretive Data was last revised on 2017. Monocyte pct 7.6 % [facility] Comment: Interpretive Data Percent cell count reference ranges are not reported, since discordance with absolute values may lead to misinterpretation of CBC data. Current Interpretive Data was last revised on 2017. Eosinophil pct 1.1 % [facility] Comment: Interpretive Data Percent cell count reference ranges are not reported, since discordance with absolute values may lead to misinterpretation of CBC data. Current Interpretive Data was last revised on 2017. Basophil pct 0.4 % [facility] Comment: Interpretive Data Percent cell count reference ranges are not reported, since discordance with absolute values may lead to misinterpretation of CBC data. Current Interpretive Data was last revised on 2017. Blood 06/27/2022 4:05 AM CDT 06/27/2022 4:26 AM CDT us Max Iverson MD LAB BLOOD ORDERABLES Fi nal Result [facility] [address] [facility] Department of Laboratories [place], [place] [id number] * (ABNORMAL) CBC with auto differential (06/27/2022 4:05 AM CDT) [facility] WBC 8.9 3.8 - 9.9 K/cumm [facility] Hgb 6.8(L) 11.9 - 15.5 g/dL [facility] Hct 21.7(L) 35.6 - 45.5 % [facility] Plt 334 150 - 400 K/cumm [facility] MPV 9.5 9.1 - 12.3 fL [facility] RBC 2.40(L) 3.90 - 5.20 M/cumm [facility] MCV 90.4 81.3 - 96.4 fL [facility] MCH 28.3 27.1 - 33.3 pg [facility] MCHC 31.3(L) 32.3 - 35.7 g/dL [facility] RDW CV 20.0(H) 11.1 - 14.9 % [facility] RDW SD 66.1(H) 35.7 - 48.1 fL [facility] NRBC abs 0.00 0.00 - 0.01 K/cumm [facility] Blood 06/27/2022 4:05 AM CDT 06/27/2022 4:26 AM CDT Max Iverson MD LAB BLOOD ORDERABLES nal Result [facility] [address] [facility] [place] [address] * (ABNORMAL) Basic metabolic panel (06/27/2022 4:05 AM CDT) [facility] Sodium 130(L) 135 - 145 mmol/L [facility] Potassium, pl 4.2 3.3 - 4.9 mmol/L [facility] Chloride 92(L) 97 - 110 mmol/L [facility] CO2 28 22 - 32 mmol/L [facility] Anion gap 10 2 - 15 mmol/L [facility] BUN 27(H) 8 - 25 mg/dL [facility] Creatinine 0.90 0.60 - 1.10 mg/dL [facility] Glucose 187 70 - 199 mg/dL [facility] Comment: Interpretive Data Fasting glucose >/= 126 [...] classification and Diagnosis of Diabetes Diabetes Care 2021; 46: S19-S40. Current interpretive data was last revised 2022. Calcium 8.1(L) 8.5 - 10.3 mg/dL [facility] Blood 06/27/2022 4:05 AM CDT 06/27/2022 4:26 AM CDT Max Iverson MD LAB BLOOD ORDERABLES Fi nal Result Performing Organization Address [facility]/ZIP Co de Phone Number [address] [place] [address] * (ABNORMAL) POCT glucose (06/27/2022 2:39 AM CDT) Glucose, POC 219(H) 70 - 199 mg/dL [facility] Glucose comment 1 RN/MD Notified [facility] Blood 06/27/2022 2:39 AM CDT 06/27/2022 2:39 AM CDT Elias Abraham MD LAB POCT ORDERABLES - D EVICE Final Result Performing Organization Address City/[facility]/ZIP Co de Phone Number [address] [place] [address] * (ABNORMAL) POCT glucose (06/26/2022 8:43 PM CDT) Glucose, POC 215(H) 70 - 199 mg/dL [facility] Glucose comment 1 RN/MD Notified [facility] Blood 06/26/2022 8:43 PM CDT 06/26/2022 8:43 PM CDT Elias Abraham MD LAB POCT ORDERABLES - D EVICE Final Result Performing Organization Address [facility] Co de Phone Number [address] [place] [address] * (ABNORMAL) Hemoglobin and hematocrit (06/26/2022 6:25 PM CDT) Hgb 7.1(L) 11.9 - 15.5 g/dL [facility] Hct 22.5(L) 35.6 - 45.5 % [facility] Blood 06/26/2022 6:25 PM CDT 06/26/2022 6:34 PM CDT Elias Abraham MD LAB BLOOD ORDERABLES Fi nal Result Performing Organization Address [facility] Co de Phone Number [address] [place] [address] * (ABNORMAL) POCT glucose (06/26/2022 4:13 PM CDT) Glucose, POC 205(H) 70 - 199 mg/dL [facility] Glucose comment 1 Use This Result [facility] Glucose comment 2 RN/MD Notified [facility] Glucose comment 3 Critical Value [facility] Blood 06/26/2022 4:13 PM CDT 06/26/2022 4:13 PM CDT Elias Abraham MD LAB POCT ORDERABLES - D EVICE Final Result Performing Organization Address [facility] Co de Phone Number [address] [place] [address] * POCT glucose (06/26/2022 11:40 AM CDT) Glucose, POC 182 70 - 199 mg/dL [facility] Glucose comment 1 Use This Result [facility] Blood 06/26/2022 11:4 0 AM CDT 06/26/2022 11:40 AM CDT Elias Abraham MD LAB POCT ORDERABLES - D EVICE Final Result [facility] [address] [place] [address] * Crossmatch (06/26/2022 9:25 AM CDT) Crossmatch Compatible [facility] Unit number for crossmatch [id number] [facility] Blood 06/26/2022 9:25 AM CDT 06/26/2022 9:43 AM CDT Elias Abraham MD LAB BLOOD BANK TEST ORD ERABLES Final Result Performing Organization Address [facility] Co de Phone Number [address] [place] [address] * Antibody screen (06/26/2022 9:25 AM CDT) Veronica, indirect, Gel Interpretation Negative ABSC [facility] Blood 06/26/2022 9:25 AM CDT 06/26/2022 9:43 AM CDT Narrative [facility] - 06/26/2022 10:25 AM CDT Has the patient had Daratumumab or Isatuximab in the past 6 months?->Unknown Elias Abraham MD LAB BLOOD BANK TEST ORD ERABLES Final Result Performing Organization Address City/[facility]/ZIP Co de Phone Number [address] [place] [address] * ABO/Rh (06/26/2022 9:25 AM CDT) ABO/Rh O Positive [facility] Blood 06/26/2022 9:25 AM CDT 06/26/2022 9:43 AM CDT Narrative [facility] - 06/26/2022 10:23 AM CDT Has the patient had Daratumumab or Isatuximab in the past 6 months?->Unknown Elias Abraham MD LAB BLOOD BANK TEST ORD ERABLES Final Result Performing Organization Address [facility] Co de Phone Number [address] [place] [address] * POCT glucose (06/26/2022 8:46 AM CDT) [facility] Glucose, POC 178 70 - 199 mg/dL [facility] Glucose comment 1 Use This Result [facility] Blood 06/26/2022 8:46 AM CDT 06/26/2022 8:46 AM CDT Elias Abraham MD LAB POCT ORDERABLES - D EVICE Final Result Performing Organization Address [facility] Co de Phone Number [address] [place] [address] * (ABNORMAL) Hemoglobin and hematocrit (06/26/2022 8:10 AM CDT) [facility] Hgb 7.0(L) 11.9 - 15.5 g/dL [facility] Hct 22.9(L) 35.6 - 45.5 % [facility] Blood 06/26/2022 8:10 AM CDT 06/26/2022 8:17 AM CDT Elias Abraham MD LAB BLOOD ORDERABLES Fi nal Result Performing Organization Address [facility] Co de Phone Number [address] [place] [address] * eGFR (06/26/2022 5:26 AM CDT) [facility] eGFR 81 mL/min/1. 73 m2 [facility] Comment: Interpretive Data Reference Interval Normal ?>/= [...] interpretive data was last reviewed 2021. Blood 06/26/2022 5:26 AM CDT 06/26/2022 6:12 AM CDT Max Iverson MD LAB BLOOD ORDERABLES Fi nal Result [facility] [address] [facility] Department [place] [address] * Differential, auto (06/26/2022 5:26 AM CDT) Pathologist [facility] Neutrophil abs 6.4 1.7 - 6.5 K/cumm [facility] Imm gran abs 0.0 0.0 - 0.1 K/cumm [facility] Lymphocyte abs 1.1 0.8 - 3.3 K/cumm [facility] Monocyte abs 0.6 0.2 - 0.8 K/cumm [facility] Eosinophil abs 0.1 0.0 - 0.5 K/cumm [facility] Basophil abs 0.0 0.0 - 0.1 K/cumm [facility] Neutrophil pct 77.2 % [facility] Comment: Interpretive Data Percent cell count reference ranges are not reported, since discordance with absolute values may lead to misinterpretation of CBC data. Current Interpretive Data was last revised on 2017. Imm gran pct 0.4 % [facility] Comment: Interpretive Data Percent cell count reference ranges are not reported, since discordance with absolute values may lead to misinterpretation of CBC data. Current Interpretive Data was last revised on 2017. Lymphocyte pct 13.7 % [facility] Comment: Interpretive Data Percent cell count reference ranges are not reported, since discordance with absolute values may lead to misinterpretation of CBC data. Current Interpretive Data was last revised on 2017. Monocyte pct 7.6 % [facility] Comment: Interpretive Data Percent cell count reference ranges are not reported, since discordance with absolute values may lead to misinterpretation of CBC data. Current Interpretive Data was last revised on 2017. Eosinophil pct 0.7 % [facility] Comment: Interpretive Data Percent cell count reference ranges are not reported, since discordance with absolute values may lead to misinterpretation of CBC data. Current Interpretive Data was last revised on 2017. Basophil pct 0.4 % [facility] Comment: Interpretive Data Percent cell count reference ranges are not reported, since discordance with absolute values may lead to misinterpretation of CBC data. Current Interpretive Data was last revised on 2017. Blood 06/26/2022 5:26 AM CDT 06/26/2022 6:12 AM CDT Max Iverson MD LAB BLOOD ORDERABLES Fi nal Result [facility] [address] [facility] [place] [address] * (ABNORMAL) CBC with auto differential (06/26/2022 5:26 AM CDT) Pathologist [facility] WBC 8.3 3.8 - 9.9 K/cumm [facility] Hgb 6.9(L) 11.9 - 15.5 g/dL [facility] Hct 22.5(L) 35.6 - 45.5 % [facility] Plt 355 150 - 400 K/cumm [facility] MPV 9.6 9.1 - 12.3 fL [facility] RBC 2.50(L) 3.90 - 5.20 M/cumm [facility] MCV 90.0 81.3 - 96.4 fL [facility] MCH 27.6 27.1 - 33.3 pg [facility] MCHC 30.7(L) 32.3 - 35.7 g/dL [facility] RDW CV 19.6(H) 11.1 - 14.9 % [facility] RDW SD 64.5(H) 35.7 - 48.1 fL [facility] NRBC abs 0.00 0.00 - 0.01 K/cumm [facility] Blood 06/26/2022 5:26 AM CDT 06/26/2022 6:12 AM CDT Max Iverson MD LAB BLOOD ORDERABLES nal Result [facility] [address] [facility] [place] [address] * (ABNORMAL) Basic metabolic panel (06/26/2022 5:26 AM CDT) Sodium 133(L) 135 - 145 mmol/L [facility] Potassium, pl 4.7 3.3 - 4.9 mmol/L [facility] Chloride 93(L) 97 - 110 mmol/L [facility] CO2 30 22 - 32 mmol/L [facility] Anion gap 10 2 - 15 mmol/L [facility] BUN 28(H) 8 - 25 mg/dL [facility] Creatinine 0.80 0.60 - 1.10 mg/dL [facility] Glucose 165 70 - 199 mg/dL [facility] Comment: Delta - Results Reviewed Interpretive Data Fasting glucose >/= 126 mg/dl [...] classification and Diagnosis of Diabetes Diabetes Care 2021; 46: S19-S40. Current interpretive data was last revised 2022. Calcium 8.3(L) 8.5 - 10.3 mg/dL [facility] Blood 06/26/2022 5:26 AM CDT 06/26/2022 6:12 AM CDT Max Iverson MD LAB BLOOD ORDERABLES Fi nal Result Performing Organization Address [facility] Co de Phone Number [address] [place] [address] * (ABNORMAL) POCT glucose (06/26/2022 12:15 AM CDT) Glucose, POC 217(H) 70 - 199 mg/dL [facility] Glucose comment 1 Use This Result [facility] Blood 06/26/2022 12:1 5 AM CDT 06/26/2022 12:15 AM CDT Max Iverson MD LAB POCT ORDERABLES - D EVICE Final Result Performing Organization Address [facility] Co de Phone Number [address] [place] [address] * (ABNORMAL) POCT glucose (06/25/2022 11:00 PM CDT) Glucose, POC 257(H) 70 - 199 mg/dL [facility] Glucose comment 1 Use This Result [facility] Blood 06/25/2022 11:0 0 PM CDT 06/25/2022 11:00 PM CDT Max Iverson MD LAB POCT ORDERABLES - D EVICE Final Result Performing Organization Address City/[facility] Co de Phone Number [address] [place] [address] * (ABNORMAL) POCT glucose (06/25/2022 10:32 PM CDT) Glucose, POC 222(H) 70 - 199 mg/dL [facility] Blood 06/25/2022 10:3 2 PM CDT 06/25/2022 10:32 PM CDT Max Iverson MD LAB POCT ORDERABLES - D EVICE Final Result Performing Organization Address City/[facility]/ZIP Co de Phone Number [address] [address] * (ABNORMAL) POCT glucose (06/25/2022 9:45 PM CDT) Glucose, POC 229(H) 70 - 199 mg/dL [facility] Glucose comment 1 Use This Result [facility] Blood 06/25/2022 9:45 PM CDT 06/25/2022 9:45 PM CDT Max Iverson MD LAB POCT ORDERABLES - D EVICE Final Result Performing Organization Address [facility] Co de Phone Number [address] [address] * (ABNORMAL) POCT glucose (06/25/2022 9:02 PM CDT) Glucose, POC 225(H) 70 - 199 mg/dL [facility] Blood 06/25/2022 9:02 PM CDT 06/25/2022 9:02 PM CDT us Notinfile Unknown LAB POCT ORDERABLES - DEVICE F inal Result Performing Organization Address City/[facility]/ZIP Co de Phone Number [address] [address] * (ABNORMAL) POCT glucose (06/25/2022 8:32 PM CDT) Glucose, POC 249(H) 70 - 199 mg/dL [facility] Blood 06/25/2022 8:32 PM CDT 06/25/2022 8:32 PM CDT Notinfile Unknown LAB POCT ORDERABLES - DEVICE F inal Result Performing Organization Address [facility] Co de Phone Number [address] [place] [address] * (ABNORMAL) POCT glucose (06/25/2022 8:00 PM CDT) Glucose, POC 57(L) 70 - 199 mg/dL [facility] Glucose comment 1 Use This Result [facility] Blood 06/25/2022 8:00 PM CDT 06/25/2022 8:00 PM CDT Notinfile Unknown LAB POCT ORDERABLES - DEVICE F inal Result Performing Organization Address [facility] Co de Phone Number [address] [place] [address] * Sepsis Lactate w/ Reflex (06/25/2022 7:57 PM CDT) [facility] Sepsis Lactate 1.3 0.7 - 2.0 mmol/L [facility] Blood 06/25/2022 7:57 PM CDT 06/25/2022 8:11 PM CDT [place] GONZALEZ LAB BLOOD ORDERABLES Final Resul t Performing Organization Address [facility] Co de Phone Number [address] [place] [address] * POCT glucose (06/25/2022 6:33 PM CDT) Glucose, POC 137 70 - 199 mg/dL [facility] Blood 06/25/2022 6:33 PM CDT 06/25/2022 6:33 PM CDT us Notinfile Unknown LAB POCT ORDERABLES - DEVICE F inal Result Performing Organization Address City/[facility]/ZIP Co de Phone Number LESLIE[address] [place] [address] * POCT glucose (06/25/2022 5:37 PM CDT) Glucose, POC 151 70 - 199 mg/dL [facility] Blood 06/25/2022 5:37 PM CDT 06/25/2022 5:37 PM CDT us Notinfile Unknown LAB POCT ORDERABLES - DEVICE F inal Result Performing Organization Address [facility] Co de Phone Number [address] [address] * CT Chest Abdomen Pelvis W Contrast (06/25/2022 5:13 PM CDT) Anatomical Region Laterality Modality Body N/A Computed Tomogra phy 06/25/2022 7:14 PM CDT Narrative 06/25/2022 7:21 PM CDT EXAM DESCRIPTION: ?? CT CHEST ABDOMEN PELVIS W CONTRAST REASON FOR STUDY: ?? AMS ?? [facility] with complaint of greenish vaginal discharge and vaginal discomfort for 2 days without other acute complaint. CBG 148 en route. Alert, oriented x4. ? TECHNIQUE: CT scan of the chest, abdomen, and pelvis performed with intravenous and ?? without ??oral contrast using helical scanning technique with dynamic intravenous contrast injection. Reconstructed coronal and sagittal MPR images reviewed. All images stored on PACS. ?? Automated exposure control was used as a dose optimization technique for this examination. CONTRAST TYPE/DOSE: ?? 93mL of IOVERSOL 350 MG IODINE/ML INTRAVENOUS SYRINGE ?? injected via ?? right arm IV COMPARISON: ?? 06/21/2020 06/17/2020 REFERENCE: Per ACR white paper recommendations, unless otherwise specified no follow-up imaging is recommended for incidental renal and adrenal lesions per consensus recommendations based on imaging criteria. Further lab evaluation could be pursued based on clinical findings. FINDINGS: CHEST LUNGS: ?? Bilateral diffuse ground-glass infiltrate. ??Bibasilar atelectasis. PLEURA: ?? Trace pleural effusions. MEDIASTINUM/TAYLOR: ?? No identified masses or abnormal nodes. HEART: ?? Severe cardiomegaly. ??Small pericardial effusion. VASCULATURE CHEST: ?? No thoracic aortic aneurysm or dissection. AXILLA: ?? No adenopathy. CHEST WALL: ?? No masses. ??No subcutaneous air. HARDWARE/LINES/TUBES: ?? None. MUSCULOSKELETAL CHEST: ?? Right breast subcutaneous fluid collection measuring 5 cm appear stable. ABDOMEN/PELVIS LIVER: ?? Normal size. ??No identified cystic or solid masses. GALLBLADDER: ?? No acute findings. BILE DUCTS: ?? No intrahepatic or extrahepatic ductal dilatation. SPLEEN: ?? Normal size. ??No focal lesions. PANCREAS: ?? No identified cystic or solid masses. No significant calcifications. No adjacent inflammation or peripancreatic fluid collections. Pancreatic duct not dilated. ?? ADRENALS: ?? Normal. KIDNEYS/URINARY TRACT: ?? No identified significant cystic or solid masses. No visualized stones. No hydronephrosis or hydroureter. Symmetric enhancement. ? Urinary bladder is unremarkable. GI: ?? No dilated bowel loops. No obvious wall thickening. ??Normal appendix. ?? No significant diverticular disease. PERITONEUM: ?? No ascites or free air. RETROPERITONEUM: ?? No mass or adenopathy. REPRODUCTIVE: ?? Uterus unremarkable. ??No adnexal masses. VASCULATURE ABDOMEN: ?? No abdominal aortic aneurysm. MUSCULOSKELETAL ABDOMEN PELVIS: ?? No acute finding. OTHER: ?? Large amount of subcutaneous edema is evidence for diffuse anasarca. Midline anterior abdominal wall fluid collection measuring 5 cm appear stable. IMPRESSION: 1. ?Small pleural effusions. ??Bilateral mild ground-glass density likely evidence for edema. 2. ??Severe cardiomegaly. 3. ??No acute findings in the abdomen or pelvis. THIS IS AN ELECTRONICALLY VERIFIED FINAL REPORT 06/25/2022 7:21 PM - Electronically signed by ??Luisito Elkins M.D. RW D: ??06/25/2022 7:21 PM T: Report ID: [id number] Reading Location: ??[id number] Procedure Note Luisito Elkins MD - 06/25/2022 EXAM DESCRIPTION: CT CHEST ABDOMEN PELVIS W CONTRAST REASON FOR STUDY: AMS [facility] with complaint of greenish vaginal discharge and vaginal discomfort for 2 days without other acute complaint. CBG 148 enroute. Alert, oriented x4. TECHNIQUE: CT scan of the chest, abdomen, and pelvis performed with intravenous and without oral contrast using helical scanning techniquewith dynamic intravenous contrast injection. Reconstructed coronal and sagittalMPR images reviewed. All images stored on PACS. Automated exposure control was used as a dose optimization technique forthis examination. CONTRAST TYPE/DOSE: 93mL of IOVERSOL 350 MG IODINE/ML INTRAVENOUSSYRINGE injected via right arm IV COMPARISON: 06/21/2020 06/17/2020 REFERENCE: Per ACR white paper recommendations, unless otherwise specifiedno follow-up imaging is recommended for incidental renal and adrenal lesionsper consensus recommendations based on imaging criteria. Further labevaluation could be pursued based on clinical findings. FINDINGS: CHEST LUNGS: Bilateral diffuse ground-glass infiltrate. Bibasilaratelectasis. PLEURA: Trace pleural effusions. MEDIASTINUM/TAYLOR: No identified masses or abnormal nodes. HEART: Severe cardiomegaly. Small pericardial effusion. VASCULATURE CHEST: No thoracic aortic aneurysm or dissection. AXILLA: No adenopathy. CHEST WALL: No masses. No subcutaneous air. HARDWARE/LINES/TUBES: None. MUSCULOSKELETAL CHEST: Right breast subcutaneous fluid collectionmeasuring 5 cm appear stable. ABDOMEN/PELVIS LIVER: Normal size. No identified cystic or solid masses. GALLBLADDER: No acute findings. BILE DUCTS: No intrahepatic or extrahepatic ductal dilatation. SPLEEN: Normal size. No focal lesions. PANCREAS: No identified cystic or solid masses. No significant calcifications. No adjacent inflammation or peripancreatic fluidcollections. Pancreatic duct not dilated. ADRENALS: Normal. KIDNEYS/URINARY TRACT: No identified significant cystic or solid masses.No visualized stones. No hydronephrosis or hydroureter. Symmetricenhancement. Urinary bladder is unremarkable. GI: No dilated bowel loops. No obvious wall thickening. Normalappendix. No significant diverticular disease. PERITONEUM: No ascites or free air. RETROPERITONEUM: No mass or adenopathy. REPRODUCTIVE: Uterus unremarkable. No adnexal masses. VASCULATURE ABDOMEN: No abdominal aortic aneurysm. MUSCULOSKELETAL ABDOMEN PELVIS: No acute finding. OTHER: Large amount of subcutaneous edema is evidence for diffuseanasarca. Midline anterior abdominal wall fluid collection measuring 5 cm appearstable. IMPRESSION: 1. Small pleural effusions. Bilateral mild ground-glass density likely evidence for edema. 2. Severe cardiomegaly. 3. No acute findings in the abdomen or pelvis. THIS IS AN ELECTRONICALLY VERIFIED FINAL REPORT 06/25/2022 7:21 PM - Electronically signed by Luisito Elkins M.D. RW T: Report ID: [id number] Reading Location: [id number] Flaquita GONZALEZ IMG CT PROCEDURES Final Result * CT head without contrast (06/25/2022 5:13 PM CDT) Anatomical Region Laterality Modality Head and Neck N/A Computed Tomogra phy 06/25/2022 6:40 PM CDT Narrative 06/25/2022 6:42 PM CDT EXAM DESCRIPTION: ?? CT HEAD WO CONTRAST REASON FOR STUDY: ?? AMS, stroke alert patient ?? TECHNIQUE: Axial images acquired through the brain without intravenous contrast. ??Images stored on PACS. ?? Automated exposure control was used as a dose optimization technique for this examination. COMPARISON: ?? 06/16/2020 FINDINGS: BRAIN: ?? No hemorrhage, edema or mass effect. No recent infarct. ? Nonspecific periventricular and subcortical white matter hypoattenuation which can be seen as sequela of chronic small vessel ischemic disease. ?? Age-appropriate cerebral volume loss with ex vacuo dilatation of the ventricular system. ??No acute intraventricular hemorrhage. ??Basal ganglial and cerebellar calcifications. ? EXTRA-AXIAL SPACES: ?? No fluid collections. No masses. CALVARIUM: ?? No fracture. SINUSES/MASTOIDS: Mild mucosal thickening of the ethmoid air cells. ?? Otherwise, ??no fluid or mucosal thickening. ORBITS: ?? No significant abnormality. OTHER: ?? No other significant abnormality. IMPRESSION: 1. ?? No acute intracranial findings. THIS IS AN ELECTRONICALLY VERIFIED FINAL REPORT 06/25/2022 6:42 PM - Electronically signed by ??Oliverio Crump M.D. AT D: ??06/25/2022 6:42 PM T: Report ID: [id number] Reading Location: ??[id number] Procedure Note Oliverio Crump MD - 06/25/2022 EXAM DESCRIPTION: CT HEAD WO CONTRAST REASON FOR STUDY: AMS, stroke alert patient TECHNIQUE: Axial images acquired through the brain without intravenous contrast. Images stored on PACS. Automated exposure control was used asa dose optimization technique for this examination. COMPARISON: 06/16/2020 FINDINGS: BRAIN: No hemorrhage, edema or mass effect. No recent infarct. Nonspecific periventricular and subcortical white matter hypoattenuationwhich can be seen as sequela of chronic small vessel ischemic disease. Age-appropriate cerebral volume loss with ex vacuo dilatation of the ventricular system. No acute intraventricular hemorrhage. Basal ganglialand cerebellar calcifications. EXTRA-AXIAL SPACES: No fluid collections. No masses. CALVARIUM: No fracture. SINUSES/MASTOIDS: Mild mucosal thickening of the ethmoid air cells. Otherwise, no fluid or mucosal thickening. ORBITS: No significant abnormality. OTHER: No other significant abnormality. IMPRESSION: 1. No acute intracranial findings. THIS IS AN ELECTRONICALLY VERIFIED FINAL REPORT 06/25/2022 6:42 PM - Electronically signed by Oliverio Crump M.D. AT T: Report ID: [id number] Reading Location: [id number] Flaquita GONZALEZ [facility] CT PROCEDURES Final Result * (ABNORMAL) Sepsis Lactate w/ Reflex (06/25/2022 5:00 PM CDT) Sepsis Lactate 2.4(C) 0.7 - 2.0 mmol/L ASHLEIGH WOMACK Comment:Critical Result call ed to and read back by spencer de león [email or web address], DATE: 2022-06-25 17:31:00 BY: [email or web address] Blood 06/25/2022 5:00 PM CDT 06/25/2022 5:03 PM CDT Flaquita GONZALEZ LAB BLOOD ORDERABLES Final Resul t [address]ES[address] [place] [address] * POCT glucose (06/25/2022 4:49 PM CDT) Pathologist [facility] Glucose, POC 169 70 - 199 mg/dL ASHLEIGH Blood 06/25/2022 4:49 PM CDT 06/25/2022 4:49 PM CDT Notinfile Unknown LAB POCT ORDERABLES - DEVICE F inal Result Performing Organization Address [facility] Co de Phone Number [address] [place] [address] * Urine culture Urine (06/25/2022 4:41 PM CDT) Pathologist [facility] Report Final Report: Less than 100,000 colonies/mL (clinically insignificant growth based on current clinical standards) ASHLEIGH Comment:Testing performed by : [facility], [address] [place] [address] Organism (CLINICALLY INSIGNIFICANT GROWTH ASHLEIGH Urine 06/25/2022 4:41 PM CDT 06/25/2022 10:46 PM CDT Narrative ASHLEIGH - 06/27/2022 7:48 AM CDT Urine culture reflexed based upon urinalysis results. Testing performed by [facility] ([phone]) Flaquita GONZALEZ LAB MICROBIOLOGY - GENERAL ORDER [place] Final Result Performing Organization Address City/[facility]/ZIP Co de Phone Number [address] [place] [address] * (ABNORMAL) Urinalysis, microscopic only (06/25/2022 4:41 PM CDT) WBC, ur >50(A) 0 - 5 /HPF [facility] RBC, ur >50(A) 0 - 2 /HPF [facility] Epithelial cells, squamous, ur 6-10(A) 0 - 5 /HPF [facility] Comment:Suggestive of contam ination. Consider recollection by clean catch. Bacteria, ur 4+(A) [facility] Yeast, ur 4+(A) [facility] Culture Reflex Comment Reflex to urine culture will be performed. [facility] Urine 06/25/2022 4:41 PM CDT 06/25/2022 4:53 PM CDT us Flaquita GONZALEZ LAB URINE ORDERABLES Final Resul t [facility] [address] [facility] [place] [address] * (ABNORMAL) Urinalysis reflex to microscopic and culture Urine (06/25/2022 4:41 PM CDT) Color, ur Yellow Yellow [facility] Clarity, ur Turbid(A) Clear [facility] Specific gravity, ur 1.012 1.003 - 1.030 [facility] pH, urine 5.0 [facility] Protein, ur ql 1+(A) Negative [facility] Glucose, ur ql 3+(A) Negative [facility] Ketones, ur Negative Negative [facility] Bilirubin, ur Negative Negative [facility] Blood, ur 1+(A) Negative [facility] Urobilinogen, ur 4.0(A) <2.0 mg/dL [facility] Nitrite, ur Negative Negative [facility] Leukocyte esterase, ur 3+(A) Negative [facility] UA reflex comment Reflex to microscopic UA will be performed. [facility] Urine 06/25/2022 4:41 PM CDT 06/25/2022 4:53 PM CDT Narrative [facility] - 06/25/2022 4:59 PM CDT ?? Urine pH is affected by diet, medications, systemic acid-base disturbances, and renal tubular function. ??pH may affect urinary stone formation. ??For example, urine pH below 6.0 may help reduce the tendency for calcium phosphate stones and pH greater than 6.0 may reduce the tendency for uric acid stone formation. Source: [facility] [employer]. Last revised 03-23-2017 Flaquita GONZALEZ LAB MICROBIOLOGY - GENERAL ORDER [place] Final Result Performing Organization Address City/[facility]/ZIP Co de Phone Number ASHLEIGH [address] [facility] [place] [address] * eGFR (06/25/2022 4:06 PM CDT) eGFR 70 mL/min/1. 73 m2 ASHLEIGH Comment: Interpretive Data Reference Interval Normal ?>/= [...] of Race in Diagnosing Kidney Disease, JASN 202). The CKD-EPI equation should not be used for patients with unstable renal function and has not been validated in children and those over 70. Current interpretive data was last reviewed 2021. Blood 06/25/2022 4:06 PM CDT 06/25/2022 4:08 PM CDT Flaquita GONZALEZ LAB BLOOD ORDERABLES Final Resul t Performing Organization Address City/[facility]/ZIP Co de Phone Number ASHLEIGH [address] [facility] [place] [address] * (ABNORMAL) Differential, auto (06/25/2022 4:06 PM CDT) Pathologist [facility] Neutrophil abs 7.5(H) 1.7 - 6.5 K/cumm [facility] Imm gran abs 0.1 0.0 - 0.1 K/cumm [facility] Lymphocyte abs 1.3 0.8 - 3.3 K/cumm [facility] Monocyte abs 0.9(H) 0.2 - 0.8 K/cumm [facility] Eosinophil abs 0.1 0.0 - 0.5 K/cumm [facility] Basophil abs 0.0 0.0 - 0.1 K/cumm [facility] Neutrophil pct 75.5 % [facility] Comment: Interpretive Data Percent cell count reference ranges are not reported, since discordance with absolute values may lead to misinterpretation of CBC data. Current Interpretive Data was last revised on 2017. Imm gran pct 1.0 % [facility] Comment: Interpretive Data Percent cell count reference ranges are not reported, since discordance with absolute values may lead to misinterpretation of CBC data. Current Interpretive Data was last revised on 2017. Lymphocyte pct 13.6 % [facility] Comment: Interpretive Data Percent cell count reference ranges are not reported, since discordance with absolute values may lead to misinterpretation of CBC data. Current Interpretive Data was last revised on 2017. Monocyte pct 8.6 % [facility] Comment: Interpretive Data Percent cell count reference ranges are not reported, since discordance with absolute values may lead to misinterpretation of CBC data. Current Interpretive Data was last revised on 2017. Eosinophil pct 0.9 % [facility] Comment: Interpretive Data Percent cell count reference ranges are not reported, since discordance with absolute values may lead to misinterpretation of CBC data. Current Interpretive Data was last revised on 2017. Basophil pct 0.4 % [facility] Comment: Interpretive Data Percent cell count reference ranges are not reported, since discordance with absolute values may lead to misinterpretation of CBC data. Current Interpretive Data was last revised on 2017. Blood 06/25/2022 4:06 PM CDT 06/25/2022 4:08 PM CDT Flaquita GONZALEZ LAB BLOOD ORDERABLES Final Resul t Performing Organization Address [facility] de Phone Number ASHLEIGH [address] [place] [address] * (ABNORMAL) CBC with auto differential (06/25/2022 4:06 PM CDT) Pathologist [facility] WBC 9.9 3.8 - 9.9 K/cumm [facility] Hgb 7.0(L) 11.9 - 15.5 g/dL [facility] Hct 23.4(L) 35.6 - 45.5 % [facility] Plt 358 150 - 400 K/cumm [facility] MPV 9.2 9.1 - 12.3 fL [facility] RBC 2.54(L) 3.90 - 5.20 M/cumm [facility] MCV 92.1 81.3 - 96.4 fL [facility] MCH 27.6 27.1 - 33.3 pg [facility] MCHC 29.9(L) 32.3 - 35.7 g/dL [facility] RDW CV 19.9(H) 11.1 - 14.9 % [facility] RDW SD 65.6(H) 35.7 - 48.1 fL [facility] NRBC abs 0.00 0.00 - 0.01 K/cumm [facility] Blood 06/25/2022 4:06 PM CDT 06/25/2022 4:08 PM CDT Flaquita GONZALEZ LAB BLOOD ORDERABLES Final Resul t Performing Organization Address [facility]/ZIP Co de Phone Number [address] [place] [address] * (ABNORMAL) Comprehensive metabolic panel (06/25/2022 4:06 PM CDT) Pathologist [facility] Sodium 134(L) 135 - 145 mmol/L [facility] Potassium, pl 3.9 3.3 - 4.9 mmol/L [facility] Chloride 95(L) 97 - 110 mmol/L [facility] CO2 31 22 - 32 mmol/L [facility] Anion gap 8 2 - 15 mmol/L [facility] BUN 29(H) 8 - 25 mg/dL [facility] Creatinine 0.90 0.60 - 1.10 mg/dL [facility] Glucose 54(C) 70 - 199 mg/dL [facility] Comment: Critical Result called to and read back by [email or web address], DATE: 2022-06-25 16:43:48 BY: [email or web address] Interpretive Data Fasting glucose >/= 126 mg/dl [...] classification and Diagnosis of Diabetes Diabetes Care 2021; 46: S19-S40. Current interpretive data was last revised 2022. Calcium 8.2(L) 8.5 - 10.3 mg/dL [facility] Bilirubin, total 0.5 0.1 - 1.2 mg/dL [facility] Protein, pl 7.7 6.5 - 8.5 g/dL [facility] Albumin 2.7(L) 3.5 - 5.0 g/dL [facility] Alk phos 32(L) 40 - 130 Units/L [facility] ALT 6(L) 7 - 45 Units/L [facility] AST 16 10 - 45 Units/L [facility] Blood 06/25/2022 4:06 PM CDT 06/25/2022 4:08 PM CDT us Flaquita GONZALEZ LAB BLOOD ORDERABLES Final Resul t ASHLEIGH [address] [facility] [place] [address] * (ABNORMAL) POCT glucose (06/25/2022 4:04 PM CDT) [facility] Glucose, POC 55(C) 70 - 199 mg/dL [facility] Blood 06/25/2022 4:04 PM CDT 06/25/2022 4:04 PM CDT us Notinfile Unknown LAB POCT ORDERABLES - DEVICE F inal Result Performing Organization Address [facility] Co de Phone Number LESL[address] [address] * (ABNORMAL) POCT glucose (06/25/2022 3:32 PM CDT) Glucose, POC 62(L) 70 - 199 mg/dL [facility] Glucose comment 1 Use This Result [facility] Blood 06/25/2022 3:32 PM CDT 06/25/2022 3:32 PM CDT us Notinfile Unknown LAB POCT ORDERABLES - DEVICE F inal Result Performing Organization Address [facility] de Phone Number [address] [address] * (ABNORMAL) POCT glucose (06/25/2022 3:21 PM CDT) Glucose, POC 64(L) 70 - 199 mg/dL [facility] Glucose comment 1 Use This Result [facility] Blood 06/25/2022 3:21 PM CDT 06/25/2022 3:21 PM CDT us Notinfile Unknown LAB POCT ORDERABLES - DEVICE F inal Result Performing Organization Address [facility] Co de Phone Number [address] [address] * POCT glucose (06/25/2022 3:00 PM CDT) Glucose, POC 80 70 - 199 mg/dL [facility] Blood 06/25/2022 3:00 PM CDT 06/25/2022 3:00 PM CDT us Notinfile Unknown LAB POCT ORDERABLES - DEVICE F inal Result Performing Organization Address [facility] Co de Phone Number ASHLEIGH [address] [place] [address] * (ABNORMAL) POCT glucose (06/25/2022 2:57 PM CDT) [facility] Glucose, POC 47(C) 70 - 199 mg/dL [facility] Glucose comment 1 Will Repeat Test [facility] Glucose comment 2 Use This Result [facility] Glucose comment 3 RN/MD Notified [facility] Blood 06/25/2022 2:57 PM CDT 06/25/2022 2:57 PM CDT Notinfile Unknown LAB POCT ORDERABLES - DEVICE F inal Result Performing Organization Address [facility] Co de Phone Number ASHLEIGH [address] [address] documented in this encounter Visit Diagnoses Diagnosis Hypoglycemia- Primary Hypoglycemia, unspecified Hypoglycemia Hypoglycemia, unspecified Urinary tract infection without hematuria, site unspecified Anemia, unspecified type documented in this encounter Admitting Diagnoses Diagnosis Hypoglycemia Hypoglycemia, unspecified documented in this encounter Administered Medications Inactive Administered Medications - up to 3 most recent administrations Medication Order MAR Action Action Date Dose Rate Site acetaminophen (TYLENOL) tablet 650 mg 650 mg, oral, Every 4 hours PRN, 1st line for pain, fever, fever greater than 38.3 C, Starting on 06/25/22 at 2301, Indications: Fever, PainIndications:Fever,Pain Given 06/28/2022 9:38 AM CDT 650 mg Given 06/26/2022 9:02 PM CDT 650 mg atorvastatin (LIPITOR) tablet 40 mg 40 mg, oral, Daily, First dose on 06/26/22 at 0900 Given 06/28/2022 9:18 AM CDT 40 mg Given 06/27/2022 8:57 AM CDT 40 mg Given 06/26/2022 9:29 AM CDT 40 mg cefTRIAXone (ROCEPHIN) 1,000 mg/10 mL in sterile water (premix) 1,000 mg 1,000 mg, intravenous, at 600 mL/hr, Administer over 1 Minutes, Once, On 06/25/22 at 1730, For 1 dose, Indications: Urinary Tract/Genitourinary InfectionIndications:Urinary Tract/Genitourinary Infection Given 06/25/2022 5:19 PM CDT 1,000 mg 6 00 mL/hr cefTRIAXone (ROCEPHIN) 1,000 mg/10 mL in sterile water (premix) 1,000 mg 1,000 mg, intravenous, at 600 mL/hr, Administer over 1 Minutes, Every 24 hours scheduled, First dose (after last reorder) on [place] 06/26/22 at 0900, Indications: Urinary Tract/Genitourinary InfectionIndications:Urinary Tract/Genitourinary Infection Given 06/28/2022 9:39 AM CDT 1,000 mg 6 00 mL/hr Given 06/27/2022 9:00 AM CDT 1,000 mg 600 mL/hr Given 06/26/2022 9:29 AM CDT 1,000 mg 600 mL/hr dextrose (concentrated solution) 50 % CONCENTRATED solution 25 g 25 g, intravenous, Administer over 5 Minutes, Once, On 06/25/22 at 1614, For 1 dose Given 06/25/2022 4:15 PM CDT 25 g dextrose (concentrated solution) 50 % CONCENTRATED solution 25 g 25 g, intravenous, Administer over 5 Minutes, Once, On 06/25/22 at 2002, For 1 dose Given 06/25/2022 8:04 PM CDT 25 g dextrose (D10W) 10% bolus 250 mL 250 mL, intravenous, at 1,000 mL/hr, Administer over 15 Minutes, Every 15 min PRN, blood glucose less than 70 mg/dL and UNABLE to swallow/take PO glucose/juice., Starting on [place] 06/26/22 at 0806, After treatment for hypoglycemia, recheck BG followed [...] glucose less than 70 mg/dL, Starting on [place] 06/26/22 at 0806, If patient is alert and able to [...] Call MD for each episode of hypoglycemia. ORNAMENTAL IRONWORKER STATES GLUTOSE-15 CONTAINS GLUCOSE 40% W/W (50% W/V), Indications: hypoglycemic disorderIndications:hypoglycemi c disorder enoxaparin (LOVENOX) syringe 30 mg 30 mg, subcutaneous, Daily (for enoxaparin), First dose on 06/25/22 at 2345, Indications: Deep Vein Thrombosis Prevention, On hold since [place] 06/26/2022 at 0806 until manually unheldIndications:Deep Vein Thrombosis Prevention Given 06/26/2022 12:01 AM CDT 30 mg Left Lower Abdomen furosemide (LASIX) 10 mg/mL injection 20 mg 20 mg, intravenous, Once, On 06/25/22 at 2345, For 1 dose, For IV push: administer doses < 160 mg at a rate of 20 -40 mg/min. Doses >/= 160 mg should be administered no faster than 4 mg/min. Room temperature only Given 06/26/2022 12:02 AM CDT 20 mg furosemide (LASIX) tablet 40 mg 40 mg, oral, Daily, First dose on [place] 06/26/22 at 1330 Given 06/28/2022 9:18 AM CDT 40 mg Given 06/27/2022 8:57 AM CDT 40 mg Given 06/26/2022 1:27 PM CDT 40 mg gabapentin (NEURONTIN) capsule 300 mg 300 mg, oral, 3 times daily, First dose on [place] 06/26/22 at 0900 Given 06/28/2022 9:18 AM CDT 300 mg Given 06/27/2022 8:47 PM CDT 300 mg Given 06/27/2022 4:20 PM CDT 300 mg glucagon injection 1 mg 1 mg, intramuscular, Every 30 min PRN, low blood sugar, blood glucose less than 70 mg/dL AND no IV access AND unable to take PO glucose/juice., Starting on Mon06/26/22 at 0806, After Glucagon is administered, position patient on [...] with 1 mL SWFI. Use immediately following reconstitution. insulin glargine (LANTUS, SEMGLEE) 100 unit/mL injection 10 Units 10 Units, subcutaneous, Nightly, First dose on Mon06/27/22 at 2100, Do not mix with other insulins Given 06/27/2022 8:47 PM CDT 10 Units Left Lower Abdomen insulin lispro (HumaLOG, ADMELOG) 100 unit/mL injection 0-4 Units 0-4 Units, subcutaneous, Nightly, First dose on Mon06/26/22 at 2100, Blood glucose mg/dL: 199 or less: No insulin 200-249: add 1 unit 250-299: add 2 units 300-349: add 3 units and notify physician for adjustment of insulin orders. 350-399: add 4 units and notify physician for adjustment of insulin orders. Over 400: Notify physician for adjustment of insulin orders. Do NOT hold for NPO Status, Indications: Diabetes MellitusIndications:Diabetes Mellitus Given 06/26/2022 9:02 PM CDT 1 Units Left Lower Abdomen insulin lispro (HumaLOG, ADMELOG) 100 unit/mL injection 0-5 Units 0-5 Units, subcutaneous, 3 times daily with meals, First dose on Mon06/26/22 at 0845, Blood glucose mg/dL: 149 or less: No insulin 150-199: add 1 unit 200-249: add 2 units 250-299: add 3 units 300-349: add 4 units and notify physician for adjustment of insulin orders. 350-399: add 5 units and notify physician for adjustment of insulin orders. Over 400: Notify physician for adjustment of insulin orders. Do NOT hold for NPO Status, Indications: Diabetes MellitusIndications:Diabetes Mellitus Given 06/28/2022 12:22 PM CDT 2 Units Left Upper Arm Given 06/28/2022 9:19 AM CDT 1 Units Ri ght Upper Arm Given 06/27/2022 5:13 PM CDT 1 Units Le ft Antecubital insulin lispro (HumaLOG, ADMELOG) 100 unit/mL injection 5 Units 5 Units, subcutaneous, 3 times daily with meals, First dose on Mon06/27/22 at 1800 Given 06/28/2022 12:20 PM CDT 5 Units Left Upper Arm Given 06/28/2022 9:18 AM CDT 5 Units Ri ght Upper Arm Given 06/27/2022 5:14 PM CDT 5 Units Le ft Antecubital ioversoL (OPTIRAY 350) syringe 100 mL 100 mL, intravenous, Once in imaging, contrast, Starting on Mon06/25/22 at 1714, For 1 dose Contrast Given 06/25/2022 5:14 PM CDT 93 mL levothyroxine (SYNTHROID) tablet 100 mcg 100 mcg, oral, Daily (early AM), First dose on Mon06/27/22 at 0600, Administer on an empty stomach, preferably 30 minutes before breakfast. Take 4 hours apart from antacids, iron and calcium products. Separate from tube feeds, if applicable. Given 06/28/2022 6:15 AM CDT 100 mcg Given 06/27/2022 5:29 AM CDT 100 mcg miconazole 2 % powder topical, 2 times daily, First dose on Mon06/28/22 at 1015, Apply to affected area: abdomen Given 06/28/2022 12:21 PM CDT ondansetron (ZOFRAN) injection 4 mg 4 mg, intravenous, Administer over 2 Minutes, Every 6 hours PRN, nausea, vomiting, if not tolerating PO, Starting on Mon06/25/22 at 2300, Indications: Nausea and VomitingIndications:Nausea and Vomiting ondansetron ODT (ZOFRAN-ODT) disintegrating tablet 4 mg 4 mg, oral, Every 6 hours PRN, nausea, vomiting, Starting on Mon06/25/22 at 2300, Indications: Nausea and VomitingIndications:Nausea and Vomiting pantoprazole DR (PROTONIX) extended release tablet 40 mg 40 mg, oral, Daily, First dose on Mon06/26/22 at 0900, Do not crush, chew, cut, dissolve, open or otherwise manipulate tablet/capsule., Indications: Treatment of Non-Bleeding Gastric DisorderIndications:Treatment of Non-Bleeding Gastric Disorder Given 06/28/2022 9:18 AM CDT 40 mg Given 06/27/2022 8:58 AM CDT 40 mg Given 06/26/2022 9:29 AM CDT 40 mg perflutren lipid (DEFINITY) 1.5 mL in sodium chloride 0.9% 10 mL syringe 1-10 mL, intravenous, Once in imaging, contrast, Starting on Mon06/27/22 at 0745, For 1 dose, Intra-Procedure (CV) Contrast Given 06/27/2022 7:46 AM CDT 2 mL sacubitriL-valsartan (ENTRESTO) 24-26 mg tablet 1 tablet 1 tablet, oral, 2 times daily, First dose on Mon06/26/22 at 0900 Given 06/28/2022 9:18 AM CDT 1 tablet Given 06/27/2022 8:47 PM CDT 1 tablet Given 06/27/2022 8:58 AM CDT 1 tablet sodium chloride 0.9% flush 0.5-20 mL 0.5-20 mL, intra-catheter, Every 8 hours scheduled, First dose on 06/25/22 at 2345, Flush volume based on line type and size. Given 06/28/2022 6:15 AM CDT 10 mL Given 06/27/2022 8:48 PM CDT 10 mL Given 06/27/2022 2:18 PM CDT 10 mL sodium chloride 0.9% IVPB 0-250 mL 0-250 mL, intravenous, Once, On 06/27/22 at 0830, For 1 dose, Prime blood tubing and administer amount needed to clear line (usually 50-100 mL) after transfusion complete. New Bag 06/27/2022 12:18 PM CDT 50 mL documented in this encounter Discontinued Medications Medication Sig Discontinue Reason Start Date End Da te oxyCODONE (ROXICODONE) 5 mg immediate release tabletIndications:Pain Take 1 tablet (5 mg total) by mouth every 4 (four) hours as needed for pain Reorder 06/24/2020 06/28/2022 gabapentin (NEURONTIN) 400 mg capsule Take 1 capsule (400 mg total) by mouth 2 (two) times a day Stop Taking at Discharge 06/24/2020 06/28/[address] (PROTONIX) 40 mg EC tablet Take 1 tablet (40 mg total) by mouth daily Stop Taking at Discharge 06/24/2020 06/28/2022 documented as of this encounter Historical Medications * This list may reflect changes made after this encounter. gabapentin (NEURONTIN) 300 mg capsule Take 1 capsule (300 mg total) by mouth 3 (three) times a day 06/25/2022 Entresto 24-26 mg tablet Take 1 tablet by mouth 2 (two) times a day 06/11/2022 NovoLOG 100 unit/mL vial for injection 06/18/2022 potassium chloride ER 10 mEq CR capsule Take 1 tablet/capsule (10 mEq total) by mouth daily 06/14/2022 omeprazole (PriLOSEC) 20 mg capsule Take 1 capsule (20 mg total) by mouth daily 06/01/2022 furosemide (LASIX) 40 mg tablet Take 1 tablet (40 mg total) by mouth daily 05/28/2022 Jardiance 10 mg tablet Take 1 tablet (10 mg total) by mouth daily 06/23/2022 added in this encounter Active and Recently Administered Medications Times are shown in CDT. Scheduled Medication Order 06/26/2022 06/27/2022 06/28/2022 amLODIPine (NORVASC) tablet 10 mg 10 mg, oral, Daily, First dose on 06/26/22 at 0900, On hold since 06/26/2022 at 0805 until manually unheld 0805 (Held by Provider - Provider: Elias Abraham MD - Reason: Pending Results)0900 (Not Given - Provider: Suzie Wilcox - Reason: See Provider Order) 0900 (Dose Auto Held - Provider: Elias Abraham MD) 0900 (Dose Auto Held - Provider: Elias Abraham MD)2213 (Unheld by Provider - Provider: Automatic Discharge Provider) atorvastatin (LIPITOR) tablet 40 mg 40 mg, oral, Daily, First dose on 06/26/22 at 0900 0929 (Given - Provider: Suzie Wilcox) 0857 (Given - Provider: Cecilia Zepeda RN) 0918 (Given - Provider: Miriam Ware, SPENCER) cefTRIAXone (ROCEPHIN) 1,000 mg/10 mL in sterile water (premix) 1,000 mg 1,000 mg, intravenous, at 600 mL/hr, Administer over 1 Minutes, Every 24 hours scheduled, First dose (after last reorder) on 06/26/22 at 0900, Indications: Urinary Tract/Genitourinary Infection 0929 (Given - Provider: Suzie Wilcox) 0900 (Given - Provider: Cecilia Zepeda, SPENCER) 0939 (Given - Provider: Miriam Ware, RN) enoxaparin (LOVENOX) syringe 30 mg 30 mg, subcutaneous, Daily (for enoxaparin), First dose on 06/25/22 at 2345, Indications: Deep Vein Thrombosis Prevention, On hold since 06/26/2022 at 0806 until manually unheld 0001 (Given - Provider: Eli Singh RN)0806 (Held by Provider - Provider: Elias Abraham MD - Reason: Pending Results)2100 (Dose Auto Held - Provider: Elias Abraham MD) 2100 (Dose Auto Held - Provider: Elias Abraham MD) 2213 (Unheld by Provider - Provider: Automatic Discharge Provider) furosemide (LASIX) 10 mg/mL injection 20 mg (COMPLETED) 20 mg, intravenous, Once, On 06/25/22 at 2345, For 1 dose, For IV push: administer doses < 160 mg at a rate of 20 -40 mg/min. Doses >/= 160 mg should be administered no faster than 4 mg/min. Room temperature only 0002 (Given - Provider: Eli Singh RN) furosemide (LASIX) tablet 40 mg 40 mg, oral, Daily, First dose on 06/26/22 at 1330 1327 (Given - Provider: Suzie Wilcox) 0857 (Given - Provider: Cecilia Zepeda, SPENCER) 0918 (Given - Provider: Miriam Ware, SPENCER) gabapentin (NEURONTIN) capsule 300 mg 300 mg, oral, 3 times daily, First dose on 06/26/22 at 0900 0929 (Given - Provider: Suzie Wilcox)1624 (Given - Provider: Suzie Wilcox)2046 (Given - Provider: Kita Elam, SPENCER) 0857 (Given - Provider: Cecilia Zepeda RN)162 (Given - Provider: Lesa Arevalo RN)2046 (Given - Provider: Sabrina Prieto, RN) 0918 (Given - Provider: Miriam Ware, SPENCER)1600 (Due) insulin glargine (LANTUS, SEMGLEE) 100 unit/mL injection 10 Units 10 Units, subcutaneous, Nightly, First dose on 06/27/22 at 2100, Do not mix with other insulins 2046 (Given - Provider: Sabrina Prieto, RN - Comment: 156) insulin lispro (HumaLOG, ADMELOG) 100 unit/mL injection 0-4 Units 0-4 Units, subcutaneous, Nightly, First dose on 06/26/22 at 2100, Blood glucose mg/dL: 199 or less: No insulin 200-249: add 1 unit 250-299: add 2 units 300-349: add 3 units and notify physician for adjustment of insulin orders. 350-399: add 4 units and notify physician for adjustment of insulin orders. Over 400: Notify physician for adjustment of insulin orders. Do NOT hold for NPO Status, Indications: Diabetes Mellitus 2101 (Given - Provider: Kita Elam, SPENCER) 2046 (Not Given - Provider: Sabrina Prieto RN - Reason: Order parameters not met - Comment: 156) insulin lispro (HumaLOG, ADMELOG) 100 unit/mL injection 0-5 Units 0-5 Units, subcutaneous, 3 times daily with meals, First dose on 06/26/22 at 0845, Blood glucose mg/dL: 149 or less: No insulin 150-199: add 1 unit 200-249: add 2 units 250-299: add 3 units 300-349: add 4 units and notify physician for adjustment of insulin orders. 350-399: add 5 units and notify physician for adjustment of insulin orders. Over 400: Notify physician for adjustment of insulin orders. Do NOT hold for NPO Status, Indications: Diabetes Mellitus 0929 (Given - Provider: Suzie Wilcox)1235 (Given - Provider: Suzie Wilcox)1734 (Given - Provider: Suzie Wilcox) 0830 (Given - Provider: Cecilia Zepeda, SPENCER)1216 (Given - Provider: Cecilia Zepeda, SPENCER)1713 (Given - Provider: Lesa Arevalo, SPENCER) 0919 (Given - Provider: Miriam Ware, SPENCER)1222 (Given - Provider: Miriam Ware, SPENCER) insulin lispro (HumaLOG, ADMELOG) 100 unit/mL injection 5 Units 5 Units, subcutaneous, 3 times daily with meals, First dose on Mon06/27/22 at 1800 1714 (Given - Provider: Lesa Arevalo, SPENCER) 0918 (Given - Provider: Miriam Ware, SPENCER)1220 (Given - Provider: Miriam Ware, SPENCER) levothyroxine (SYNTHROID) tablet 100 mcg 100 mcg, oral, Daily (early AM), First dose on Mon06/27/22 at 0600, Administer on an empty stomach, preferably 30 minutes before breakfast. Take 4 hours apart from antacids, iron and calcium products. Separate from tube feeds, if applicable. 0529 (Given - Provider: Kita Elam RN) 0615 (Given - Provider: Sabrina Prieto RN) miconazole 2 % powder topical, 2 times daily, First dose on Mon06/28/22 at 1015, Apply to affected area: abdomen 1221 (Given - Provider: Miriam Ware, SPENCER) pantoprazole DR (PROTONIX) extended release tablet 40 mg 40 mg, oral, Daily, First dose on Mon06/26/22 at 0900, Do not crush, chew, cut, dissolve, open or otherwise manipulate tablet/capsule., Indications: Treatment of Non-Bleeding Gastric Disorder 0929 (Given - Provider: Suzie Wilcox) 0858 (Given - Provider: Cecilia Zepeda, SPENCER) 0918 (Given - Provider: Miriam Ware, SPENCER) sacubitriL-valsartan (ENTRESTO) 24-26 mg tablet 1 tablet 1 tablet, oral, 2 times daily, First dose on Mon06/26/22 at 0900 0929 (Given - Provider: Suzie Wilcox)2047 (Not Given - Provider: Kita Elam RN - Reason: Patient/family refused - Comment: low b/p) 0858 (Given - Provider: Cecilia Zepeda RN)204 (Given - Provider: Sabrina Prieto RN) 0918 (Given - Provider: Miriam Ware, SPENCER) sodium chloride 0.9% flush 0.5-20 mL 0.5-20 mL, intra-catheter, Every 8 hours scheduled, First dose on 06/25/22 at 2345, Flush volume based on line type and size. 0001 (Given - Provider: Eli Singh RN)0427 (Not Given - Provider: Eli Singh, SPENCER - Reason: Other)1327 (Given - Provider: Suzie Wilcox)2048 (Given - Provider: Kita Elam RN) 0531 (Given - Provider: Kita Elam RN)1418 (Given - Provider: Cecilia Zepeda RN)2048 (Given - Provider: Sabrina Prieto RN) 0615 (Given - Provider: Sabrina Prieto RN)1222 (Not Given - Provider: Miriam Ware RN - Reason: Other - Comment: leaving) sodium chloride 0.9% IVPB 0-250 mL (COMPLETED) 0-250 mL, intravenous, Once, On 06/27/22 at 0830, For 1 dose, Prime blood tubing and administer amount needed to clear line (usually 50-100 mL) after transfusion complete. 1218 (New Bag - Provider: Cecilia Zepeda RN) PRN Medication Order 06/26/2022 06/27/2022 06/28/2022 acetaminophen (TYLENOL) tablet 650 mg 650 mg, oral, Every 4 hours PRN, 1st line for pain, fever, fever greater than 38.3 C, Starting on 06/25/22 at 2301, Indications: Fever, Pain 2101 (Given - Provider: Kita Elam RN) 0938 (Given - Provider: Miriam Ware, SPENCER - Comment: headache) Carrier Fluids for Secondary Infusion - 0.9% Sodium Chloride 30 mL, intravenous, As needed, For priming tubing and/or flushing, Starting on 06/25/22 at 2300, 0-250 ml/hr to flush line after IV infusions when no maintenance IV ordered. Infuse 30mL at the same rate as the secondary infusion. Run as primary IV, not intended for KVO. 1218 (Not Given - Provider: Cecilia Zepeda RN - Reason: Other - Comment: other order given) dextrose (D10W) 10% bolus 250 mL(Linked Group 1) 250 mL, intravenous, at 1,000 mL/hr, Administer over 15 Minutes, Every 15 min PRN, blood glucose less than 70 mg/dL and UNABLE to swallow/take PO glucose/juice., Starting on Mon06/26/22 at 0806, After treatment for hypoglycemia, recheck BG followed [...] glucose less than 70 mg/dL, Starting on Mon06/26/22 at 0806, If patient is alert and able to [...] Call MD for each episode of hypoglycemia. ORNAMENTAL IRONWORKER STATES GLUTOSE-15 CONTAINS GLUCOSE 40% W/W (50% W/V), Indications: hypoglycemic disorder glucagon injection 1 mg 1 mg, intramuscular, Every 30 min PRN, low blood sugar, blood glucose less than 70 mg/dL AND no IV access AND unable to take PO glucose/juice., Starting on Mon06/26/22 at 0806, After Glucagon is administered, position patient on [...] with 1 mL SWFI. Use immediately following reconstitution. ondansetron (ZOFRAN) injection 4 mg(Linked Group 2) 4 mg, intravenous, Administer over 2 Minutes, Every 6 hours PRN, nausea, vomiting, if not tolerating PO, Starting on 06/25/22 at 2300, Indications: Nausea and Vomiting ondansetron ODT (ZOFRAN-ODT) disintegrating tablet 4 mg(Linked Group 2) 4 mg, oral, Every 6 hours PRN, nausea, vomiting, Starting on 06/25/22 at 2300, Indications: Nausea and Vomiting perflutren lipid (DEFINITY) 1.5 mL in sodium chloride 0.9% 10 mL syringe (COMPLETED) 1-10 mL, intravenous, Once in imaging, contrast, Starting on 06/27/22 at 0745, For 1 dose, Intra-Procedure (CV) 0746 (Contrast Given - Provider: Trinidad Castaneda RN) polyethylene glycol (MIRALAX) packet 17 g 17 g, oral, Daily PRN, constipation, Starting on 06/25/22 at 2300, Indications: constipation sodium chloride 0.9% flush 0.5-20 mL 0.5-20 mL, intra-catheter, As needed, line care, Starting on 06/25/22 at 2300, Flush volume based on line type and size. Flush before and after each use. Linked Groups Order Group 1: dextrose (GLUTOSE) 40 % gel 15 gJump to med 15 g, oral, Every 15 min PRN, low blood sugar, blood glucose less than 70 mg/dL, Starting on 06/26/22 at 0806, If patient is alert and able to [...] Call MD for each episode of hypoglycemia. ORNAMENTAL IRONWORKER STATES GLUTOSE-15 CONTAINS GLUCOSE 40% W/W (50% W/V), Indications: hypoglycemic disorder Or dextrose (D10W) 10% bolus 250 mLJump to med 250 mL, intravenous, at 1,000 mL/hr, Administer over 15 Minutes, Every 15 min PRN, blood glucose less than 70 mg/dL and UNABLE to swallow/take PO glucose/juice., Starting on 06/26/22 at 0806, After treatment for hypoglycemia, recheck BG followed by treatment every 15 minutes until the BG is greater than 100 mg/dL. Then check BG 1 hour post treatment. If BG is less than 100 mg/dL, repeat Q15 minute BG checks and treatment. Call MD for each episode of hypoglycemia., Indications: hypoglycemic disorder Group 2: ondansetron ODT (ZOFRAN-ODT) disintegrating tablet 4 mgJump to med 4 mg, oral, Every 6 hours PRN, nausea, vomiting, Starting on 06/25/22 at 2300, Indications: Nausea and Vomiting Or ondansetron (ZOFRAN) injection 4 mgJump to med 4 mg, intravenous, Administer over 2 Minutes, Every 6 hours PRN, nausea, vomiting, if not tolerating PO, Starting on 06/25/22 at 2300, Indications: Nausea and Vomiting documented in this encounter Orders Medications Ordered That Jesus ht Not Have Been Administered Count Last Ordered Date First Ordered Date dextrose (D10W) 10% bolus 250 mL 06/27/19 dextrose (GLUTOSE) 40 % gel 15 g 06/27/19 glucagon injection 1 mg 1 06/26/2022 amLODIPine (NORVASC) tablet 10 mg 023 Carrier Fluids for Secondary Infusion - 0.9% Sodium Chloride 06/25/2022 ondansetron (ZOFRAN) injection 4 mg 06/25 ondansetron ODT (ZOFRAN-ODT) disintegrating tablet 4 mg 06/25/2022 polyethylene glycol (MIRALAX) packet 17 g 06/25/2022 sodium chloride 0.9% flush 0.5-20 mL 06/11 Lab Orders Without Results Count Last Ordered D ate First Ordered Date POCT GLUCOSE DEVICE 12 06/28/2022 06/27/19 Diet Count Last Ordered Date First Orde red Date ADULT DISCHARGE DIET 1 06/28/2022 Nursing Count Last Ordered Date First Orde red Date DISCHARGE ACTIVITY 1 06/28/2022 Admission Count Last Ordered Date First Orde red Date ADMIT TO INPATIENT 1 06/25/2022 Transfer Count Last Ordered Date First Orde red Date ED TO FLOOR BED REQUEST 1 06/25/2022 Discharge Count Last Ordered Date First Orde red Date DISCHARGE PATIENT 1 06/28/2022 documented in this encounter Care Teams Linux Solar[employer] Administrator Relationship Specialty Start Date End Date Zeke Puente MD [address] [place] [address] PCP - General 12/02/18 Damon Swanson DO [address] [place] [id number] Medical Oncologist/Wildlife Enforcement Major Hematology and Oncology 10/25/17 Karl Smith Jr., MD [address] [place] [id number] Surgeon General Surgery 11/07/19 Arley Peña MD [address] [place] [address] Surgeon General Surgery 06/26/20 documented as of this encounter
--- OUTSIDE RECORDS SUMMARY | 2024-02-26 21:36 | XMS_ITS | Encounter Summary ---
Author Organization [facility] Address [address] [place] [address] Care Team Providers Care Assembler Name Role Phone Damon Swanson DO Unavailable Zeke Puente MD Primary Care Provider Sarah Baldwin MD, Karl Romero Unavailable [phone] Arley Peña MD Unavailable [phone] Encounter Details Date Type Department Care Team (Late st Contact Info) Description 12/08/2021 Orders Only [facility] Cardiology [address] [place] [address] Beto Ortez MD [address] [address] Social History Tobacco Use Types [...] declined 06/17/2020 How often do you attend yarsanism or restorationist serv ices? Patient declined 06/17/2020 Do you belong to any clubs o r organizations such as yarsanism groups, unions, fraternal or athletic groups, or [...] on file Legal Sex Female 12:30 PM DIRECT SUPPORT SPECIALIST Gender Identity Not on file Sexual Orientation Not on file documented as of this encounter Plan of Treatment Not on file documented as of this encounter Procedures Procedure Name Priority Date/Time Associated Diagnosis Comments CARDIOLOGY DOCUMENT SCAN Routine 12/08/2021 documented in this encounter Results * Cardiology Document Scan (12/08/2021) Anatomical Region Laterality Modality Other [facility] Eliezer Ortez MD CV CARDIAC SERVICES PRO CEDURES Final Result documented in this encounter Visit Diagnoses Not on filedocumented in this encounter Care Teams Assembler Relationship Specialty Start Date End Date Zeke Puente MD [address] [place] [address] PCP - General 12/02/18 Damon Swanson DO [address] [place] [id number] Medical Oncologist/Online Advertising Analyst Hematology and Oncology 10/25/17 Karl Smith Jr., MD [address] [place] [id number] Surgeon General Surgery 11/07/19 Arley Peña MD [address] [place] [id number] Surgeon General Surgery 06/26/20 documented as of this encounter
--- OUTSIDE RECORDS SUMMARY | 2024-02-26 21:36 | XMS_ITS | Encounter Summary ---
Author Organization [facility] Healthcare Address [address] [place] [address] Care Team Providers Care Chemical Etch Operator Name Role Phone Damon Swanson DO Unavailable [phone] Zeke Puente MD Primary Care Provider [phone] Sarah Baldwin MD, Karl Romero Unavailable [phone] Arley Peña MD Unavailable [phone] Encounter Details Date Type Department Care Team (Latest Contact Info) Description 06/26/2020 3:27 PM CDT - 06/26/2020 11:59 PM CDT Hospital Encounter [facility] [address] [place], [place] [id number] Discharge Disposition: Discharge to home or self care Social History Tobacco Use Types Packs/Day Years [...] declined 06/17/2020 How often do you attend jehovah's witness or anabaptist serv ices? Patient declined 06/17/2020 Do you belong to any clubs o r organizations such as jehovah's witness groups, unions, fraternal or athletic groups, or [...] on file Legal Sex Female 12:30 PM DISTRICT AGENT Gender Identity Not on file Sexual Orientation Not on file documented as of this encounter Medications at Time of Discharge amLODIPine (NORVASC) 10 mg tablet Take 1 tablet (10 mg total) by mouth daily atorvastatin (LIPITOR) 40 mg tablet Take 1 tablet (40 mg total) by mouth daily levothyroxine (SYNTHROID) 100 mcg tablet Take 1 tablet (100 mcg total) by mouth software application tester before breakfast 30 tablet 1 06/25/2020 gabapentin (NEURONTIN) 400 mg capsule Take 1 capsule (400 mg total) by mouth 2 (two) times a day 60 capsule 11 06/24/2020 oxyCODONE (ROXICODONE) 5 mg immediate release tabletIndication s:Pain Take 1 tablet (5 mg total) by mouth every 4 (four) hours as needed for pain 30 tablet 06/24/[address] (PROTONIX) 40 mg EC tablet Take 1 tablet (40 mg total) by mouth daily 30 tablet 11 06/24/2020 3 documented as of this encounter Discharge Disposition Disposition Code Departure Means Destination Discharge to home or self care documented in this encounter Plan of Treatment Not on file documented as of this encounter Visit Diagnoses Not on filedocumented in this encounter Additional Health Concerns 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 07/08/2019 10/28/2020 5:00 AM C DT documented as of this encounter Care Teams Chemical Etch Operator Relationship Specialty Start Date End Date Zeke Puente MD [address] [place] [address] PCP - General 12/02/18 Damon Swanson DO [address] [place] [id number] Medical Oncologist/Hotel Supplies Salesperson Hematology and Oncology 10/25/17 Karl Smith Jr., MD [address] [place] [address] Surgeon General Surgery 11/07/19 Arley Peña MD [address] [place] [address] Surgeon General Surgery 06/26/20 documented as of this encounter
--- OUTSIDE RECORDS SUMMARY | 2024-02-26 21:36 | XMS_ITS | Encounter Summary ---
Author Organization [facility] Address [address] [place] [address] Care Team Providers Care Furniture Dipper Name Role Phone Damon Swanson DO Unavailable [phone] Zeke Puente MD Primary Care Provider Sarah Baldwin MD, Karl Romero Unavailable Arley Peña MD Unavailable [phone] Encounter Details Date Type Department Care Team (Late st Contact Info) Description 05/17/2022 Orders Only [facility] Cardiology [address] [facility] [address] [facility] [address] [place] [address] Beto Ortez MD [address] [address] Social History Tobacco Use Types [...] declined 06/17/2020 How often do you attend shinto or methodist serv ices? 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 AND BACK FORGER Gender Identity Not on file Sexual Orientation Not on file documented as of this encounter Plan of Treatment Not on file documented as of this encounter Procedures Procedure Name Priority Date/Time Associated Diagnosis Comments CARDIOLOGY DOCUMENT SCAN Routine 05/17/2022 documented in this encounter Results * Cardiology Document Scan (05/17/2022) Anatomical Region Laterality Modality Other [facility] Eliezer Ortez MD CV CARDIAC SERVICES PRO CEDURES Final Result documented in this encounter Visit Diagnoses Not on filedocumented in this encounter Care Teams Furniture Dipper Relationship Specialty Start Date End Date Zeke Puente MD [address] [facility] [address] PCP - General 12/02/18 Damon Swanson DO [address] [place] [id number] Medical Oncologist/Medical Billing Specialist Hematology and Oncology 10/25/17 Karl Smith Jr., MD [address] [place] [id number] Surgeon General Surgery 11/07/19 Arley Peña MD [address] [place] [id number] Surgeon General Surgery 06/26/20 documented as of this encounter
--- OUTSIDE RECORDS SUMMARY | 2024-02-26 21:36 | XMS_ITS | Encounter Summary ---
Author Organization [facility] Address [address] [place] [address] Care Team Providers Care Director Industrial Nursing Name Role Phone Damon Swanson DO Unavailable [phone] Zeke Puente MD Primary Care Provider Sarah Baldwin MD, Karl Romero Unavailable Arley ePña MD Unavailable [phone] Encounter Details Date Type Department Care Team (Late st Contact Info) Description 12/06/2021 Orders Only [facility] Cardiology [address] [facility] [address] [facility] [address] [place] [address] Beto Ortez MD [address] [address] Social History Tobacco Use Types [...] declined 06/17/2020 How often do you attend congregational or confucianist serv ices? Patient declined 06/17/2020 Do you belong to any clubs o r organizations such as congregational groups, unions, fraternal or athletic groups, or [...] on file Legal Sex Female 12:30 PM FIELD MARKETING ASSOCIATE Gender Identity Not on file Sexual Orientation Not on file documented as of this encounter Plan of Treatment Not on file documented as of this encounter Procedures Procedure Name Priority Date/Time Associated Diagnosis Comments CARDIOLOGY DOCUMENT SCAN Routine 12/06/2021 documented in this encounter Results * Cardiology Document Scan (12/06/2021) Anatomical Region Laterality Modality Other [facility] Eliezer Ortez MD CV CARDIAC SERVICES PRO CEDURES Final Result documented in this encounter Visit Diagnoses Not on filedocumented in this encounter Care Teams Director Industrial Nursing Relationship Specialty Start Date End Date Zeke Puente MD [address] [place] [address] PCP - General 12/02/18 Damon Swanson DO [address] [place] [address] Medical Oncologist/Residence Hall Director Hematology and Oncology 10/25/17 Karl Smith Jr., MD [address] [place] [id number] Surgeon General Surgery 11/07/19 Arley Peña MD [address] [place] [id number] Surgeon General Surgery 06/26/20 documented as of this encounter
--- OUTSIDE RECORDS SUMMARY | 2024-02-26 21:36 | XMS_ITS | Encounter Summary ---
Author Organization [facility] Healthcare Address [address] [place] [address] Care Team Providers Care Graduate Studies Dean Name Role Phone Damno Swanson DO Unavailable [phone] Zeke Puente MD Primary Care Provider Sarah Baldwin MD, Karl Romero Unavailable Arley Peña MD Unavailable [phone] Reason for Visit * Reason Comments Edema Encounter Details Date Type Department Care Team (Late st Contact Info) Description 09/02/2023 10:14 AM CDT - 09/03/2023 12:38 AM CDT [facility] Emergency Department [address] [facility] [place] [address] Lakisha Díaz MD [address] [place] [address] [place] [address] Yudith Ho MD [address] [place] [address] [place] [address] Urinary tract infection without hematuria, site unspecified (Primary Dx) Discharge Disposition: Discharge to home or self [...] often do you attend chur ch or anglican services? 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 Follow-up with primary physician early this week. Return to the emergency department if worse. * Attachments The following attachments cannot be sent through Care Everywhere. * Bladder Infection, Female (Adult) (Czech) documented in this encounter Medications at Time [...] 06/01/2022 oxyCODONE (ROXICODONE) 5 mg immediate release tabletIndications :Pain Take 1 tablet (5 mg total) by mouth every 4 (four) hours as needed for pain for up to 12 doses 12 tablet 06/28/2022 potassium chloride ER 10 mEq CR capsule Take 1 tablet/capsul e (10 mEq total) by mouth daily 06/14/2022 cefdinir (OMNICEF) 300 mg capsule Take 1 capsule (300 mg total) by mouth 2 (two) times a day for 5 days 10 capsule 09/02/2023 09/07/2023 documented as of this encounter Ordered Prescriptions Prescription Sig Dispense Quantity Refills Last Filled Start Date End Date cefdinir (OMNICEF) 300 mg capsule Take 1 capsule (300 mg total) by mouth 2 (two) times a day for 5 days 10 capsule 09/02/2023 documented in this encounter Discharge Disposition Disposition Code Departure Means Destination Comment s Discharge to home or self care documented in this encounter ED Notes * Lakisha Díaz MD - 09/02/2023 11:54 AM CDT HPI Chief Complaint Patient presents with Edema Patient 68-year-old female with a past medical history of diabetes and hypertension status post bilateral lower extremity amputations who comes to emergency department today for abdominal distention and left arm swelling. Patient is a poor historian she has a history of dementia history provided byEMS personnel. Over the last few days staff members at the intermediate facility she is from noted she has been more distended in her abdomen and left-sided arm swelling. Last bowel movement unknown. Patient History: Patient Active Problem List Diagnosis Date Noted Hypoglycemia 06/25/2022 Dementia ([facility]) Diabetes mellitus ([facility]) Hypertension Gastrointestinal hemorrhage 06/16/2020 Sepsis ([facility]) 11/20/2019 Acute hematogenous osteomyelitis of right foot ([facility]) 11/20/2019 PVD (peripheral vascular disease) ([facility]) 11/20/2019 Anemia 11/20/2019 COVID-19 11/20/2019 Hypothyroidism 11/20/2019 Hyperlipidemia 11/20/2019 Pressure injury of sacral region, stage 4 ([facility]) 11/20/2019 Moderate malnutrition ([facility]) ([facility]) 11/07/2019 Malignant neoplasm of upper-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, estrogen receptor negative ([facility]) 11/13/2017 Past Medical History: Diagnosis Date Dementia ([facility]) Diabetes mellitus ([facility]) Hypertension Past Surgical History: Procedure Laterality Date HERNIA REPAIR Family History Problem Relation Age of Onset Diabetes Mother Heart disease Father No Known Problems Sister Diabetes Brother No Known Problems Daughter No Known Problems Son No Known Problems Son No Known Problems Son Social History Tobacco Use Smoking status: Never Smokeless tobacco: Never Substance and Sexual Activity Alcohol use: No Drug use: No Sexual activity: Not on file Social History Social History Narrative Not on file Review of Systems Review of Systems Constitutional: Negative. Negative for activity change, appetite change, chills, diaphoresis, fatigue and fever. HENT: Negative. Negative for congestion, drooling, rhinorrhea and sore throat. Eyes: Negative. Negative for photophobia, redness and visual disturbance. Respiratory: Negative. Negative for cough, chest tightness and shortness of breath. Cardiovascular: Negative. Negative for chest pain, palpitations and leg swelling. Gastrointestinal: Negative. Negative for abdominal pain, anal bleeding, blood in stool, constipation, diarrhea, nausea and vomiting. Endocrine: Negative. Genitourinary: Negative. Negative for decreased urine volume, difficulty urinating, dysuria, frequency, hematuria and urgency. Musculoskeletal: Negative. Negative for arthralgias and myalgias. Left arm swelling Skin: Negative. Negative for rash and wound. Allergic/Immunologic: Negative for immunocompromised state. Neurological: Negative. Negative for dizziness, weakness and headaches. Hematological: Negative. Does not bruise/bleed easily. Psychiatric/Behavioral: Negative. Negative for confusion. All other systems reviewed and are negative. Physical Exam ED Triage Vitals Temp Pulse Resp BP SpO2 09/02/23 1018 09/02/23 1018 09/02/23 1018 09/02/23 1030 09/02/23 1018 36.1 ??C (96.9 ??F) 80 18 119/90 95 % Temp src Heart Rate Source Patient Position BP Location FiO2 (%) 09/02/23 1018 -- -- -- -- Temporal Height Height Method Weight Weight Method -- -- 09/02/23 1019 09/02/23 1019 72.6 kg (160 lb) Estimated Physical Exam Vitals and nursing note reviewed. Constitutional: General: She is not in acute distress. Appearance: She is well-developed. She is not ill-appearing, toxic-appearing or diaphoretic. HENT: Head: Normocephalic and atraumatic. Eyes: General: No scleral icterus. Extraocular Movements: Extraocular movements intact. Conjunctiva/sclera: Conjunctivae normal. Pupils: Pupils are equal, round, and reactive to light. Neck: Thyroid: No thyromegaly. Vascular: No JVD. Trachea: No tracheal deviation. Cardiovascular: Rate and Rhythm: Normal rate. Pulmonary: Effort: Pulmonary effort is normal. No respiratory distress. Breath sounds: No stridor. No wheezing. Abdominal: General: Abdomen is flat. There is distension. Tenderness: There is abdominal tenderness (mild diffuse). Musculoskeletal: General: Normal range of motion. Cervical back: Normal range of motion and neck supple. Comments: Swelling left upper extremity predominantly distal aspect Skin: General: Skin is warm and dry. Neurological: General: No focal deficit present. Mental Status: She is alert and oriented to person, place, and time. Mental status is at baseline. Motor: No abnormal muscle tone. Psychiatric: Mood and Affect: Mood normal. Behavior: Behavior normal. Thought Content: Thought content normal. Judgment: Judgment normal. MDM Medical Decision Making Amount and/or Complexity of Data Reviewed Labs: ordered. Radiology: ordered. Risk Prescription drug management. Final diagnoses: Urinary tract infection without hematuria, site unspecified Patient care turned over to Dr. Ho at shift change. There may be grammatical errors in this note due to use of voice recognition software. Lakisha Díaz MD 09/03/23 1410 * Lakshmi Ramsey RN - 09/02/2023 10:16 AM CDT Patient to ED via EMS from [facility] for swelling to left arm and to abdomen. Bowel sounds diminished. * Ivelisse Nesbitt RN - 09/02/2023 10:14 AM CDT Bed: ED11 Expected date: Expected time: Means of arrival: Comments: ems Ivelisse Nesbitt RN 09/02/23 1014 documented in this encounter Miscellaneous Notes * ED Re-evaluation Note - Yudith Ho MD - 09/02/2023 5:08 PM CDT ED Re-evaluation Patient is noted to have urinary tract infection. CT findings of bladder wall thickening, and air in bladder consistent with urinary tract infection. Patient has no fever, and normal white blood cellcount. Venous Doppler negative for DVT. Patient is noted to have subcutaneous edema, but likely thelow albumin level is contributing to this edema. Patient received 1 dose of IV Rocephin here in the emergency department, and will be discharged with oral cefdinir to be given at the facility where the patient resides. Patient will require close follow-up by her primary physician. I discussed thesefindings with the patient and with the plan and she is in agreement. Yudith Ho MD 09/02/23 1711 documented in this encounter Plan of Treatment Not on file documented as of this encounter Procedures Procedure Name Priority Date/Time Associated Diagnosis Comments URINALYSIS AND REFLEX TO MICROSCOPIC AND CULTURE STAT 09/02/2023 1:53 PM CDT URINALYSIS, MICROSCOPIC ONLY STAT 09/02/2023 1:53 PM CDT URINE CULTURE STAT 09/02/2023 1:[address] ABDOMEN PELVIS W CONTRAST ED 09/02/2023 12:56 PM CDT EGFR STAT 09/02/2023 12:08 PM CDT DIFFERENTIAL AUTO STAT 09/02/2023 12: 08 PM CDT CBC WITH AUTO DIFFERENTIAL STAT 09/02/2023 12:08 PM CDT PROTIME-INR STAT 09/02/2023 12:08 PM CDT COMPREHENSIVE METABOLIC PANEL STAT 09/02/2023 12:08 PM CDT US VEIN DUPLEX UPPER EXTREMITY LEFT LIMITED ED Urgent/IP Urgent 09/02/2023 11:29 AM CDT documented in this encounter Results * Urine culture Urine (09/02/2023 1:53 PM CDT) Report Final Report: Less than 100,000 colonies/mL (clinically insignificant growth based on current clinical standards) Comment:Testing performed by : [facility], [address] [facility] [place]., [address] Organism (CLINICALLY INSIGNIFICANT GROWTH [facility] ([place]) Urine 09/02/2023 1:53 PM CDT 09/02/2023 5:59 PM CDT Narrative [facility] ([place]) - 09/03/2023 7:26 PM CDT Urine culture reflexed based upon urinalysis results. Testing performed by [facility] Microbiology Laboratory ([phone]) Lakisha Díaz MD LAB MICROBIOLOGY - GENERAL ORDERABLES Final Result [facility] ([place]) 1 [facility] Department of Laboratories [place], [place] [id number] * (ABNORMAL) Urinalysis, microscopic only (09/02/2023 1:53 PM CDT) WBC, ur >50(A) 0 - 5 /HPF RBC, ur 21-50(A) 0 - 2 /HPF [facility] ([place]) Epithelial cells, squamous, ur 1-5 0 - 5 /HPF [facility] ([place]) Bacteria, ur 3+(A) [facility] ([place]) Yeast, ur 2+(A) [facility] ([place]) Culture Reflex Comment Reflex to urine culture will be performed. [facility] ([place]) Urine 09/02/2023 1:53 PM CDT 09/02/2023 1:55 PM CDT Lakisha Díaz MD LAB URINE ORDERABLE S Final Result Performing Organization Address [facility]/State/ZIP Co de Phone Number [facility] ([place]) 1 [facility] [place] [address] * (ABNORMAL) Urinalysis reflex to microscopic and culture Urine (09/02/2023 1:53 PM CDT) Color, ur Light-Garvin Clarity, ur Turbid(A) Clear [facility] ([place]) Specific gravity, ur 1.018 1.003 - 1.030 [facility] ([place]) pH, urine 5.5 [facility] ([place]) Comment: Interpretive Data ? Urine pH is affected by diet, medications, systemic acid-base disturbances, and renal tubular function. ??pH may affect urinary stone formation. ??For example, urine pH below 6.0 may help reduce the tendency for calcium phosphate stones and pH greater than 6.0 may reduce the tendency for uric acid stone formation. Source: [facility] Current Interpretive Data was last revised on 2017 Protein, ur ql 1+(A) Negative [facility] ([place]) Glucose, ur ql 3+(A) Negative [facility] ([place]) Ketones, ur Trace Negative [facility] ([place]) Bilirubin, ur Negative Negative [facility] ([place]) Blood, ur 2+(A) Negative [facility] ([place]) Urobilinogen, ur <2.0 <2.0 mg/dL [facility] ([place]) Nitrite, ur Negative Negative [facility] ([place]) Leukocyte esterase, ur 4+(A) Negative [facility] ([place]) UA reflex comment Reflex to microscopic UA will be performed. [facility] ([place]) Urine 09/02/2023 1:53 PM CDT 09/02/2023 1:55 PM CDT Lakisha Díaz MD LAB MICROBIOLOGY - GENERAL ORDERABLES Final Result [facility] ([place]) 1 [facility] [place] [address] * CT Abdomen Pelvis W Contrast (09/02/2023 12:56 PM CDT) Anatomical Region Laterality Modality Body N/A Computed Tomogra phy 09/02/2023 1:21 PM CDT Narrative 09/02/2023 1:35 PM CDT EXAM DESCRIPTION: ?? CT ABDOMEN PELVIS W CONTRAST REASON FOR STUDY: ?? Abdominal pain. ??Left arm and abdominal swelling. ?? TECHNIQUE: CT scan of the abdomen and pelvis performed with intravenous and ?? without ??oral contrast using helical scanning technique with dynamic intravenous contrast injection. Reconstructed coronal and sagittal MPR images reviewed. All images stored on PACS. Automated exposure control was used as a dose optimization technique for this examination. CONTRAST TYPE/DOSE: ?? 75mL of IOVERSOL 350 MG IODINE/ML INTRAVENOUS SYRINGE ?? injected via ?? intravenous COMPARISON: ?? CT chest, abdomen, pelvis 06/25/2022 FINDINGS: LOWER CHEST: ?? Trace pleural effusions are slightly larger on the right. ??The heart is enlarged. ??Pericardial effusion is only partially included. ??Rim calcified lesion in the right breast is unchanged from the prior study. LIVER: ?? Normal size. ??No identified cystic or solid masses. GALLBLADDER: ?? The gallbladder is either decompressed or removed. BILE DUCTS: ?? No intrahepatic or extrahepatic ductal dilatation. SPLEEN: ?? Normal size. ??No focal lesions. PANCREAS: ?? No identified cystic or solid masses. No significant calcifications. No adjacent inflammation or peripancreatic fluid collections. Pancreatic duct not dilated. ?? ADRENALS: ?? Normal. KIDNEYS/URINARY TRACT: ?? There is increased attenuation surrounding the the left ureter and left renal pelvis. ??There is mild hydronephrosis with a small amount of air in the left renal pelvis. ??No radiopaque obstructing lesion is seen. ??No right hydronephrosis. ?There is moderate to severe circumferential bladder wall thickening. ??Small amount of air within the bladder is indeterminate. GI: ?? No significant diverticular disease. ??Normal appendix. ??No bowel obstruction. PERITONEUM: ?? No free air. ??Possible trace amount of free fluid in the pelvis. RETROPERITONEUM: ?? No mass or adenopathy. REPRODUCTIVE: ?? No significant abnormality. VASCULATURE: ?? Atherosclerotic calcification of the abdominal aorta without aneurysm. MUSCULOSKELETAL: ?? Erosive changes at the pubic symphysis are grossly similar. Moderate thoracolumbar spondylosis. OTHER: ?? There is moderate diffuse subcutaneous edema. ??Partially rim calcified fluid collection in the anterior abdominal wall measuring 9.7 x 8.7 cm is grossly similar when compared to the prior study. ??The lesion measures 14.8 cm in craniocaudal dimension. IMPRESSION: Moderate to severe circumferential bladder wall thickening with a small amount of air in the bladder and left renal pelvis. This may be secondary to recent instrumentation although emphysematous pyelitis should also be considered in the appropriate clinical setting. ??No definite gas within the renal parenchyma to suggest emphysematous pyelonephritis. ??A fistula from the bladder to an adjacent loop of small bowel is considered less likely but not entirely excluded. ??The sigmoid colon does appear to be separate from the bladder. Mild left hydronephrosis with increased attenuation surrounding the left ureter and left renal pelvis. This may be secondary to ascending infection. No radiopaque obstructing lesion is seen. ??Consider follow-up CT urogram after acute abnormalities have resolved. Trace pleural effusions are slightly larger on the right. Pericardial effusion is only partially included. Stable partially rim calcified fluid collection in the anterior abdominal wall. Moderate diffuse subcutaneous edema. Trace amount of free fluid in the pelvis. THIS IS AN ELECTRONICALLY VERIFIED FINAL REPORT 09/02/2023 1:35 PM - Electronically signed by ??Micah [place]ittington M.D. LB: TERRANCE D: ??09/02/2023 1:34 PM T: ??09/02/2023 1:35 PM Report ID: [id number] Reading Location: ??[id number] Procedure Note Micah Whittington MD - 09/02/2023 EXAM DESCRIPTION: CT ABDOMEN PELVIS W CONTRAST REASON FOR STUDY: Abdominal pain. Left arm and abdominal swelling. TECHNIQUE: CT scan of the abdomen and pelvis performed with intravenousand without oral contrast using helical scanning technique with dynamic intravenous contrast injection. Reconstructed coronal and sagittal MPRimages reviewed. All images stored on PACS. Automated exposure control was usedas a dose optimization technique for this examination. CONTRAST TYPE/DOSE: 75mL of IOVERSOL 350 MG IODINE/ML INTRAVENOUSSYRINGE injected via intravenous COMPARISON: CT chest, abdomen, pelvis 06/25/2022 FINDINGS: LOWER CHEST: Trace pleural effusions are slightly larger on the right.The heart is enlarged. Pericardial effusion is only partially included. Rim calcified lesion in the right breast is unchanged from the prior study. LIVER: Normal size. No identified cystic or solid masses. GALLBLADDER: The gallbladder is either decompressed or removed. BILE DUCTS: No intrahepatic or extrahepatic ductal dilatation. SPLEEN: Normal size. No focal lesions. PANCREAS: No identified cystic or solid masses. No significant calcifications. No adjacent inflammation or peripancreatic fluidcollections. Pancreatic duct not dilated. ADRENALS: Normal. KIDNEYS/URINARY TRACT: There is increased attenuation surrounding thethe left ureter and left renal pelvis. There is mild hydronephrosis with asmall amount of air in the left renal pelvis. No radiopaque obstructing lesionis seen. No right hydronephrosis. There is moderate to severecircumferential bladder wall thickening. Small amount of air within the bladder is indeterminate. GI: No significant diverticular disease. Normal appendix. No bowel obstruction. PERITONEUM: No free air. Possible trace amount of free fluid in thepelvis. RETROPERITONEUM: No mass or adenopathy. REPRODUCTIVE: No significant abnormality. VASCULATURE: Atherosclerotic calcification of the abdominal aortawithout aneurysm. MUSCULOSKELETAL: Erosive changes at the pubic symphysis are grosslysimilar. Moderate thoracolumbar spondylosis. OTHER: There is moderate diffuse subcutaneous edema. Partially rim calcified fluid collection in the anterior abdominal wall measuring 9.7 x8.7 cm is grossly similar when compared to the prior study. The lesionmeasures 14.8 cm in craniocaudal dimension. IMPRESSION: Moderate to severe circumferential bladder wall thickening with a small amount of air in the bladder and left renal pelvis. This may be secondaryto recent instrumentation although emphysematous pyelitis should also be considered in the appropriate clinical setting. No definite gas withinthe renal parenchyma to suggest emphysematous pyelonephritis. A fistula fromthe bladder to an adjacent loop of small bowel is considered less likely butnot entirely excluded. The sigmoid colon does appear to be separate from the bladder. Mild left hydronephrosis with increased attenuation surrounding the left ureter and left renal pelvis. This may be secondary to ascendinginfection. No radiopaque obstructing lesion is seen. Consider follow-up CT urogramafter acute abnormalities have resolved. Trace pleural effusions are slightly larger on the right. Pericardial effusion is only partially included. Stable partially rim calcified fluid collection in the anterior abdominal wall. Moderate diffuse subcutaneous edema. Trace amount of free fluid in the pelvis. THIS IS AN ELECTRONICALLY VERIFIED FINAL REPORT 09/02/2023 1:35 PM - Electronically signed by Micah Whittington M.D. LB: TERRANCE Report ID: [id number] Reading Location: [place] [address] Lakisha Díaz MD IMG CT PROCEDURES F inal Result * eGFR (09/02/2023 12:08 PM CDT) eGFR [...] MD LAB BLOOD ORDERABLE S Final Result [facility] ([place]) 1 [facility] [place] [address] * Differential, auto (09/02/2023 12:08 PM CDT) Neutrophil abs 3.9 1.5 - 6.5 K/cumm Imm gran abs 0.0 0.0 - 0.1 K/cumm [facility] ([place]) Lymphocyte abs 1.0 0.8 - 3.3 K/cumm [facility] ([place]) Monocyte abs 0.4 0.2 - 0.8 K/cumm [facility] ([place]) Eosinophil abs 0.1 0.0 - 0.5 K/cumm [facility] ([place]) Basophil abs 0.1 0.0 - 0.1 K/cumm [facility] ([place]) Neutrophil pct 71.2 % [facility] ([place]) Comment: Interpretive Data Percent cell count reference ranges are not reported, since discordance with absolute values may lead to misinterpretation of CBC data. Current Interpretive Data was last revised on 2017. Imm gran pct 0.4 % [facility] ([place]) Comment: Interpretive Data Percent cell count reference ranges are not reported, since discordance with absolute values may lead to misinterpretation of CBC data. Current Interpretive Data was last revised on 2017. Lymphocyte pct 18.5 % [facility] ([place]) Comment: Interpretive Data Percent cell count reference ranges are not reported, since discordance with absolute values may lead to misinterpretation of CBC data. Current Interpretive Data was last revised on 2017. Monocyte pct 6.6 % [facility] ([place]) Comment: Interpretive Data Percent cell count reference ranges are not reported, since discordance with absolute values may lead to misinterpretation of CBC data. Current Interpretive Data was last revised on 2017. Eosinophil pct 2.4 % [facility] ([place]) Comment: Interpretive Data Percent cell count reference ranges are not reported, since discordance with absolute values may lead to misinterpretation of CBC data. Current Interpretive Data was last revised on 2017. Basophil pct 0.9 % [facility] ([place]) Comment: Interpretive Data Percent cell count reference ranges are not reported, since discordance with absolute values may lead to misinterpretation of CBC data. Current Interpretive Data was last revised on 2017. Blood 09/02/2023 12:0 8 PM CDT 09/02/2023 12:21 PM CDT Lakisha Díaz MD LAB BLOOD ORDERABLE S Final Result Performing Organization Address [facility] de Phone Number [facility] ([place]) 1 [facility] [address] * (ABNORMAL) Protime-INR (09/02/2023 12:08 PM CDT) PT 15.7(H) 10.3 - 13.7 sec INR 1.38(H) 0.90 - 1.20 [facility] ([place]) Comment: Interpretive data Oral anticoagulant therapeutic ranges: Venous thromboembolism prophylaxis or treatment: 2.0-3.0 CARDIOLOGY Standard range: 2.0-3.0 High-intensity range: 2.5-3.5 Refer to indication-specific guidelines for appropriate target ranges for prosthetic heart valve replacement. Current interpretive data was last revised on 2019. Blood 09/02/2023 12:0 8 PM CDT 09/02/2023 12:21 PM CDT Lakisha Díaz MD LAB BLOOD ORDERABLE S Final Result Performing Organization Address [facility] Co de Phone Number [facility] ([place]) [address] [facility] [place] [address] * (ABNORMAL) Comprehensive metabolic panel (09/02/2023 12:08 PM CDT) Sodium 136 135 - 145 mmol/L Potassium, pl 4.2 3.3 - 4.9 mmol/L [facility] ([place]) Chloride 102 97 - 110 mmol/L [facility] CO2 24 22 - 32 mmol/L [facility] Anion gap 10 2 - 15 mmol/L [facility] BUN 16 6 - 25 mg/dL [facility] Creatinine 0.80 0.60 - 1.10 mg/dL [facility] Glucose 134 70 - 199 mg/dL [facility] Comment: Interpretive Data Fasting glucose >/= 126 [...] interpretive data was last revised 2022. Calcium 7.9(L) 8.5 - 10.3 mg/dL [facility] Bilirubin, total 0.4 0.1 - 1.2 mg/dL [facility] Protein, pl 6.7 6.5 - 8.5 g/dL [facility] Albumin 2.6(L) 3.5 - 5.0 g/dL [facility] Alk phos 26(L) 40 - 130 Units/L [facility] ALT <5(L) 7 - 45 Units/L [facility] AST 10 10 - 45 Units/L [facility] Blood 09/02/2023 12:0 8 PM CDT 09/02/2023 12:21 PM CDT us Lakisha Díaz MD LAB BLOOD ORDERABLE S Final Result [facility] [place] [address] * (ABNORMAL) CBC with auto differential (09/02/2023 12:08 PM CDT) WBC 5.5 3.8 - 9.9 K/cumm Hgb 10.0(L) 11.9 - 15.5 g/dL [facility] Hct 32.6(L) 35.6 - 45.5 % [facility] Plt 250 150 - 400 K/cumm [facility] MPV 9.5 9.1 - 12.3 fL [facility] RBC 3.39(L) 3.90 - 5.20 M/cumm [facility] MCV 96.2 81.3 - 96.4 fL [facility] MCH 29.5 27.1 - 33.3 pg [facility] MCHC 30.7(L) 32.3 - 35.7 g/dL [facility] RDW CV 17.7(H) 11.1 - 14.9 % [facility] RDW SD 61.5(H) 35.7 - 48.1 fL [facility] NRBC abs 0.00 0.00 - 0.01 K/cumm [facility] Blood 09/02/2023 12:0 8 PM CDT 09/02/2023 12:21 PM CDT us Lakisha Díaz MD LAB BLOOD ORDERABLE S Final Result [facility] [place] [address] * US Vein Duplex Upper Extremity Left Limited, Unilateral (09/02/2023 11:29 AM CDT) Anatomical Region Laterality Modality Vascular Left Ultrasound 09/02/2023 11:5 3 AM CDT Narrative 09/02/2023 12:03 PM CDT EXAM DESCRIPTION: ?? US VEIN DUPLEX UPPER EXTREMITY LEFT LIMITED, UNILATERAL HISTORY: ?? Left arm swelling for a few days. ??No reported injury. TECHNIQUE: Duplex scan was performed using B-mode, spectral Doppler and color-flow Doppler imaging of the ??left ??upper extremity was performed utilizing real-time ultrasonography. COMPARISON: ?? Chest abdomen pelvis CT 06/25/2022 FINDINGS: Very limited evaluation given patient immobility and body habitus with significant soft tissue edema. The deep venous system including the jugular, subclavian, axillary, basilic, and brachial veins are compressible and demonstrate color Doppler flow and wave forms and augmentation where applicable. Radial and ulnar veins are not well demonstrated. Unable to visualize the cephalic vein due to edema. IMPRESSION: Limited evaluation due to limited patient mobility and edema with non visualization of the radial and ulnar veins. Otherwise no sonographic evidence of DVT in the left upper extremity. If continued clinical concern, delayed venous upper extremity CT could be considered for further evaluation. THIS IS AN ELECTRONICALLY VERIFIED FINAL REPORT 09/02/2023 12:03 PM - Electronically signed by ??Laith Robles M.D. AG: AG D: ??09/02/2023 12:03 PM T: ??09/02/2023 12:03 PM Report ID: [id number] Reading Location: ??[id number] Procedure Note Laith Robles MD - 09/02/2023 EXAM DESCRIPTION: US VEIN DUPLEX UPPER EXTREMITY LEFT LIMITED,UNILATERAL HISTORY: Left arm swelling for a few days. No reported injury. TECHNIQUE: Duplex scan was performed using B-mode, spectral Doppler and color-flow Doppler imaging of the left upper extremity was performed utilizing real-time ultrasonography. COMPARISON: Chest abdomen pelvis CT 06/25/2022 FINDINGS: Very limited evaluation given patient immobility and body habitus with significant soft tissue edema. The deep venous system including the jugular, subclavian, axillary,basilic, and brachial veins are compressible and demonstrate color Doppler flow and wave forms and augmentation where applicable. Radial and ulnar veins arenot well demonstrated. Unable to visualize the cephalic vein due to edema. IMPRESSION: Limited evaluation due to limited patient mobility and edema with non visualization of the radial and ulnar veins. Otherwise no sonographic evidence of DVT in the left upper extremity. If continued clinical concern, delayed venous upper extremity CT could be considered for further evaluation. THIS IS AN ELECTRONICALLY VERIFIED FINAL REPORT 09/02/2023 12:03 PM - Electronically signed by Laith Robles M.D. AG: AG Report ID: [id number] Reading Location: [id number] Lakisha Díaz MD [facility] PROCEDURES F inal Result documented in this encounter Visit Diagnoses Diagnosis Urinary tract infection without hematuria, site unspecified- Primary documented in this encounter Administered Medications Inactive Administered Medications - up to 3 most recent administrations Medication Order MAR Action Action Date Dose Rate Site cefTRIAXone (ROCEPHIN) 1,000 mg/10 mL in sterile water (premix) 1,000 mg 1,000 mg, intravenous, at 120 mL/hr, Administer over 5 Minutes, Once, On 09/02/23 at 1520, For 1 dose, Indications: Urinary Tract/Genitourinary InfectionIndications:Urin benitez Tract/Genitourinary Infection Given 09/02/2023 3:51 PM CDT 1,000 mg 120 mL/hr ioversoL (OPTIRAY 350) syringe 75 mL 75 mL, intravenous, Once in imaging, contrast, Starting on 09/02/23 at 1254, For 1 dose Contrast Given 09/02/2023 12:56 PM CDT 75 mL documented in this encounter Active and Recently Administered Medications Times are shown in CDT. Scheduled Medication Order 09/01/2023 09/02/2023 09/03/2023 cefTRIAXone (ROCEPHIN) 1,000 mg/10 mL in sterile water (premix) 1,000 mg (COMPLETED) 1,000 mg, intravenous, at 120 mL/hr, Administer over 5 Minutes, Once, On 09/02/23 at 1520, For 1 dose, Indications: Urinary Tract/Genitourinary Infection 1551 (Given - Provider: Amy Ramsey RN) PRN Medication Order 09/01/2023 09/02/2023 09/03/2023 ioversoL (OPTIRAY 350) syringe 75 mL (COMPLETED) 75 mL, intravenous, Once in imaging, contrast, Starting on 09/02/23 at 1254, For 1 dose 1256 (Contrast Given - Provider: Jeanine Barahona, RT) documented in this encounter Orders Nursing Count Last Ordered Date First Orde red Date BLADDER SCAN 1 09/02/2023 documented in this encounter Care Teams Graduate Studies Dean Relationship Specialty Start Date End Date Zeke Puente MD [address] [place] [address] PCP - General 12/02/18 Damon Swanson DO [address] [place] [id number] Medical Oncologist/Jig Boring Machine Operator For [employer] On[employer] 10/25/17 Karl Smith Jr., MD [address] [place] [address] Surgeon General Surgery 11/07/19 Arley Peña MD [address] [place] [address] Surgeon General Surgery 06/26/20 documented as of this encounter
--- OUTSIDE RECORDS SUMMARY | 2024-02-26 21:37 | XMS_ITS | Encounter Summary ---
Author Organization [facility] Healthcare Address [address] [place] [address] Care Team Providers Care Manufacturing Engineer Supervisor Name Role Phone Damon Swanson DO Unavailable Zeke Puente MD Primary Care Provider Sarah Baldwin MD, Karl Rosas. Unavailable Encounter Details Date Type Department Care Team (Late st Contact Info) Description 12/03/2019 2:14 PM CDT Anesthesia Event [facility] Operating Room [facility] [place] [id number] Amanda Jefferson MD [facility] [place] [address] Loree Deng MD [address] [facility] [place] [address] Anesthesia Record Procedure Summary Procedure Name Responsible Anesthesiologist Anesthesia Start Time Anesthesia Stop Time AMPUTATION ABOVE KNEE-RIGHT DO IN 17W (Right: Thigh) Amanda Jefferson MD 12/03/19 1414 12/03/19 1645 Events Date Time Event Comment 12/03/2019 1414 An Start 1414 An Start Data 1414 In Room 1428 An Induction The patient was reevaluated immediately before moderate or deep sedation use and before anesthesia induction. 1428 An Intubation 1435 Anesthesia Ready 1441 Incision Start 1506 1604 An Extubation 1608 Proc Fin 1627 an stop data 1630 Out of Room 1630 Quick Note Pt transferred to care home care room from OR 17W. Patient hemodynamically stable and on 3L NC. Report given to RN. 1640 Handoff to RN I completed my handoff to the receiving nurse during which we: 1. Patient identified 2. Responsible provider identified 3. Pertinent medical history reviewed 4. Procedure type and surgical course discussed 5. Intraoperative anesthetic management and any significant issues discussed 6. Expectations and concerns for postop period discussed 7. Questions solicited from receiving nurse 8. Patient disposition at the time of handoff: PACU 1645 An Stop 1647 Release from care Meds Name Total fentaNYL 200 mcg lidocaine (CARDIAC) syringe 2 % 3 mL propofol 180 mg succinylcholine 100 mg phenylephrine 100 mcg/mL 300 mcg ondansetron 4 mg dexamethasone 4 mg/ml 8 mg metroNIDAZOLE 500 mg heparin 5,000 unit/ml 5,000 Units NS 0.9% 700 mL D5W 100 mL * Agents Name O2 N2O Air Sevoflurane Inspired Sevoflurane * Blood No blood administrations on file. Lines, Drains, and Airways Type Details Placement Removal RETIRED Pressure Ulcer/Pressure Injury 11/06/19; 0500; Yes; Transverse; Sacrum; 06/19/20; 1225 11/06/19 0500 by Nguyen Michel RN 06/19/20 1225 by Diamond Aguila RN Urethral Catheter Placement Date: 10/12 09/29; Placement Time: 0500; Balloon Size: 10 mL; Urine Returned: Yes; Removal Date: 06/16/20; Removal Time: 1317; Removal Reason: Removal date unknown/not present on admission 11/07/19 0500 by Nguyen Michel RN 06/16/20 1317 by Dorina Fowler RN RETIRED Pressure Ulcer/Pressure Injury 11/07/19; 1518; Yes; Left; Ischium; 06/19/20; 1225 11/07/19 1518 by Jennifer Warner RN 06/19/20 1225 by Diamond Aguila RN RETIRED Pressure Ulcer/Pressure Injury 11/07/19; 1519; Yes; Left, Right; Heel; 06/19/20; 1225 11/07/19 1519 by Jennifer Warner RN 06/19/20 1225 by Diamond Aguila, RN PICC Single Lumen Placement Date: 10/30; Placement Time: 1123; Cath Out Checklist Completed: Yes; Size: 4; Length: 39 cm; Orientation: Left; Location: Upper arm, Brachial; Site Prep: Alcohol, Betadine, Chlorhexidine; Initial Extremity Circumference: 29 cm; Initial Exposed Catheter: 0 cm; Inserted By: Dejah Fuentes RN; Insertion Attempts: 1; Patient Tolerance: Tolerated well; Placement Verification: Blood return; Removal Date: 06/16/20; Removal Time: 1635; Removal Reason: Not present on admission 11/19/19 1123 by Rebecca Romeo RN 06/16/20 1635 by Dorina Fowler RN ETT Placement Date: 11/12 05/02; Placement Time: 1446 (created via procedure documentation); Mask Ventilation: 1; Technique: Video laryngoscopy; Type: ETT - single; Single Lumen Tube Size: 7 mm; Cuffed: Yes; Laryngoscope: Balaji; Blade Size: 3; Location: Oral; Grade View: Grade I; Insertion Attempts: 1; Placement Verification: Auscultation, Capnometry; Removal Date: 12/03/19; Removal Time: 1604 12/03/19 1446 by Mary Ann Uriarte CRNA 12/03/19 1604 by Mary Ann Uriarte CRNA RETIRED Surgical Site 12/03/19; 1516; Right; Leg; 06/19/20; 1225 12/03/19 1516 by Bela Oseguera RN 06/19/20 1225 by Diamond Aguila RN documented in this encounter Social History Tobacco Use Types Packs/Day Years Used Date Smoking Tobacco: Never Smokeless Tobacco: Never Alcohol Use Standard Drinks/Week Comments No 0 (1 standard drink = 0.6 oz pur e alcohol) PHQ-2 Answer Date Recorded PHQ-2 Score 0 11/03/2018 Comments No Sex and Gender Information Value Date Recorded Sex Assigned at Not on file Legal Sex Female 12:30 PM [employer]ASSOCK [employer] Gender Identity Not on file Sexual Orientation Not on file documented as of this encounter OR Notes * Anesthesia Postprocedure Evaluation - Mary Ann Uriarte CRNA - 12/03/2019 4:45 PM CDT Patient: Iris Pascual Procedure Summary Date: 12/03/19 Room / Location: [facility] OPERATING ROOM 17W / [facility] OPERATING ROOM Anesthesia Start: 1414 Anesthesia Stop: 1645 Procedure: AMPUTATION ABOVE KNEE-RIGHT DO IN 17W (Right Thigh) Diagnosis: (RIGHT LEG) Surgeon: Arley Peña MD Responsible Provider: Amanda Jefferson MD Anesthesia Type: general ASA Status: 3 Anesthesia Type: general Last vitals There were no vitals taken for this visit. 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 Pain management: adequate Airway patency: adequate Anesthetic complications: no Cardiovascular status: acceptable and hemodynamically stable Respiratory status: acceptable Hydration status: acceptable Pt is: normothermic Nausea/Vomiting status: none * Anesthesia Procedure Notes - Mary Ann Uriarte CRNA - 12/03/2019 2:46 PM CDTAssociated Order(s): Airway Airway Patient location: OR Indications for airway management: anesthesia Difficult airway: no Staff: Supervising provider: Amanda Jefferson MD Placed by: NOUGAT CUTTER MACHINE: Mary Ann Uriarte CRNA Emergent airway documentation: Risks and benefits discussed: yes Consent obtained: yes Consent given by: patient Airway prep: Preoxygenated: yes Patient position: sniffing Mask difficulty assessment: 1 - vent by mask Sedation level during airway: GA Final airway details: Final airway type: endotracheal airway Tube type: ETT ETT size: 7.0 mm Cuffed: yes Technique used for successful ETT placement: video laryngoscopy Devices/Methods used in placement: intubating stylet Insertion site: oral Blade type: Balaji Video blade type: Medel Blade size: 3 Cormack-Lehane (direct): grade I - full view of glottis Cuff inflated with: air Placement verified by: auscultation and CO2 detection Airway secured with: silk tape Number of attempts: 1 * Anesthesia Preprocedure Evaluation - Amanda Jefferson MD - 12/03/2019 1:46 PM CDT Images from the original note were not included. Anesthesia Evaluation Iris Pascual is a 64 y.o. female Procedure(s): AMPUTATION ABOVE KNEE-RIGHT DO IN 17W * No Diagnosis Codes entered * HISTORY HPI 64 year old female presenting to OR for amputation due to osteomyelitis, Covid- 19 positive 11/10 andagain 11/27. No symptoms at least last 3 days. Past Medical History Neurological + Dementia/mild cognitive impairment Cardiovascular + Hypertension + Hyperlipidemia + PAD/Aorta disease - Comments: ?STAR Report Pat.Name: ??IRIS PASCUAL ? Pat.ID: ?[id number] ? St.Date: ?? 07/04/2019 ? Exam Time: [...] of tricuspid regurgitation. No evidence of endocarditis. Hepatic / Heme + History of anemia Gastrointestinal + GERD - on daily therapy. Asymptomatic. Endocrine / Other + Diabetes mellitus + Thyroid disease + Infectious disease - sepsis and wound infection. Review of Systems Pertinent negatives: productive cough; SOB; fever; chest pain and nausea Patient Active Problem List Diagnosis ??? Malignant neoplasm of upper-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, estrogen receptor negative (CMS/HCC) ??? Moderate malnutrition (CMS/HCC) ??? Sepsis (CMS/HCC) ??? Acute hematogenous osteomyelitis of right foot (CMS/HCC) ??? PVD (peripheral vascular disease) (CMS/HCC) ??? Anemia ??? COVID-19 ??? Hypothyroidism ??? Hyperlipidemia ??? Pressure injury of sacral region, stage 4 (CMS/HCC) Past Medical History: Diagnosis Date ??? Dementia (CMS/HCC) ??? Diabetes mellitus (CMS/HCC) ??? Hypertension Past Surgical History: Procedure Laterality Date ??? HERNIA REPAIR OB History No obstetric history on file. Allergies Allergen Reactions ? ? Codeine Phosphate Nausea & Vomiting Taking? Last Dose Start Date End Date Provider amLODIPine (NORVASC) 10 mg tablet 08/09/17 -- Historical Provider, aspirin 325 mg tablet 11/21/19 12/21/19 Reji Whittaker MD Take 1 tablet (325 mg total) by mouth daily atorvastatin (LIPITOR) 40 mg tablet 11/20/19 12/20/19 Reji Whittaker MD Take 1 tablet (40 mg total) by mouth nightly cefTRIAXone (ROCEPHIN) 11/21/19 12/18/19 Reji Whittaker MD Infuse 20 mL (2,000 mg total) into a venous catheter daily for 27 days chlorthalidone 25 mg tablet 11/21/19 12/21/19 Reji Whittaker MD Take 1 tablet (25 mg total) by mouth daily gabapentin (NEURONTIN) 300 mg capsule 11/20/19 12/20/19 Reji Whittaker MD Take 1 capsule (300 mg total) by mouth 3 (three) times a day insulin glargine (Lantus U-100 Insulin) 100 unit/mL injection 11/20/19 12/20/19 Reji Whittaker MD Inject 20 Units under the skin daily insulin lispro (HumaLOG, ADMELOG) 100 unit/mL injection 11/20/19 12/20/19 Reji Whittaker MD Inject 1-5 Units under the skin 3 (three) times a day with meals insulin lispro (HumaLOG, ADMELOG) 100 unit/mL injection 11/20/19 12/20/19 Reji Whittaker MD Inject 5 Units under the skin 3 (three) times a day with meals levothyroxine (SYNTHROID) 50 mcg tablet 11/21/19 12/21/19 Reji Whittaker MD Take 1 tablet (50 mcg total) by mouth cost clerk before breakfast metroNIDAZOLE (FLAGYL) 500 mg tablet 11/20/19 12/18/19 Reji Whittaker MD Take 1 tablet (500 mg total) by mouth 3 (three) times a day for [address] (PROTONIX) 40 mg EC tablet 11/21/19 12/21/19 Reji Whittaker MD Take 1 tablet (40 mg total) by mouth daily No current facility-administered medications for this encounter. Social History Tobacco Use Smoking Status Never Smoker Smokeless Tobacco Never Used Substance and Sexual Activity Alcohol Use No Substance and Sexual Activity Drug Use No Family History Problem Relation Age of Onset ??? Diabetes Mother ??? Heart disease Father ??? No Known Problems Sister ??? Diabetes Brother ??? No Known Problems Daughter ??? No Known Problems Son ??? No Known Problems Son ??? No Known Problems Son There were no vitals filed for this visit. PT: No results found for requested labs within last 720 hours. INR: No results found for requested labs within last 720 hours. APTT: No results found for requested labs within last 720 hours. Hgb A1C: 11/07/2019: 8.6 %* CBC RBC: 12/03/2019: 3.17 M/cumm* RDW: No results found for requested labs within last 720 hours. MCHC: 12/03/2019: 32.1 g/dL* MCH: 12/03/2019: 29.3 pg MCV: 12/03/2019: 91.5 fL Hct: 12/03/2019: 29.0 %* Hgb: 12/03/2019: 9.3 g/dL* WBC: 12/03/2019: 8.2 K/cumm MPV: 12/03/2019: 9.1 fL Platelets: 12/03/2019: 408 K/cumm* RDW CV: 12/03/2019: 17.9 %* RDW Sd: 12/03/2019: 60.4 fL* BMP Glucose: 12/03/2019: 75 mg/dL Calcium: 12/03/2019: 9.3 mg/dL Sodium: 12/03/2019: 139 mmol/L Potassium: 12/03/2019: 3.7 mmol/L CO2: 12/03/2019: 33 mmol/L* Chloride: 12/03/2019: 94 mmol/L* BUN: 12/03/2019: 21 mg/dL Creatinine: 12/03/2019: 0.67 mg/dL DOS Physical Exam Medical history, medications, and allergies reviewed. Attestation: This PAT evaluation 12/03/2019. Airway Exam: Mallampati: II TM distance: normal Dental Exam: Edentulous Current state: Patient's current state is cooperative. Additional comments: Alert and oriented to self, city, year, situation. Understands she is going [place] for right leg amputation. Abl Anesthesia Plan ASA 3 Planned anesthesia: General Team communication plan: oral ET tube Induction: Induction: intravenous and RSI. Postoperative Plan: Postoperative administration opioids intended. Informed Consent: Discussed plan with NOUGAT CUTTER MACHINE. Anesthesia plan and risks discussed with patient. Consent and Attending signature: I and/or my designee have discussed the anesthesia plan, benefits, possible alternatives, parental presence at time of induction (if indicated), and clinically relevant risks that may include dental injury, unintentional awareness, and/or other complications. The patient and/or parent/legal guardian understand, and agree to proceed. All questions answered. documented in this encounter Plan of Treatment Not on file documented as of this encounter Procedures Procedure Name Priority Date/Time Associated Diagnosis Comments OK AN PROCEDURE PLACEHOLDER Routine 12/03/2019 2:46 PM CDT OK AN ELECTIVE ENDOTRACHEAL AIRWAY Routine 12/03/2019 2:46 PM CDT documented in this encounter Results * OK AN ELECTIVE ENDOTRACHEAL AIRWAY, OK AN PROCEDURE PLACEHOLDER (12/03/2019 2:46 PM CDT) Narrative Mary Ann Uriarte CRNA - 12/03/2019 2:46 PM CDT Mary Ann Uriarte CRNA ? 12/03/2019 ??2:46 PM Airway Patient location: OR Indications for airway management: anesthesia Difficult airway: no Staff: Supervising provider: Amanda Jefferson MD Placed by: NOUGAT CUTTER MACHINE: Mary Ann Uriarte CRNA Emergent airway documentation: Risks and benefits discussed: yes Consent obtained: yes Consent given by: patient Airway prep: Preoxygenated: yes Patient position: sniffing Mask difficulty assessment: 1 - vent by mask Sedation level during airway: GA Final airway details: Final airway type: endotracheal airway Tube type: ETT ETT size: 7.0 mm Cuffed: yes Technique used for successful ETT placement: video laryngoscopy Devices/Methods used in placement: intubating stylet Insertion site: oral Blade type: Balaji Video blade type: Medel Blade size: 3 Cormack-Lehane (direct): grade I - full view of glottis Cuff inflated with: air Placement verified by: auscultation and CO2 detection Airway secured with: silk tape Number of attempts: 1 us Amanda Jefferson MD ANESTHESIA ORDERABLES Final Result documented in this encounter Visit Diagnoses Not on filedocumented in this encounter Administered Medications Inactive Administered Medications - up to 3 most recent administrations Medication Order MAR Action Action Date Dose Rate Site dexAMETHasone (DECADRON) 4 mg/mL injection intravenous, Administer over 2 Minutes, As needed, Starting on Mon12/03/19 at 1443, Anesthesia Intra-op Given 12/03/2019 2:43 PM CDT 8 mg dextrose 5% infusion intravenous, Continuous PRN, Starting on Mon12/03/19 at 1414, Anesthesia Intra-op New Bag 12/03/2019 2:14 PM CDT 100 m L/hr fentaNYL (SUBLIMAZE) preservative free injection intravenous, As needed, Starting on Mon12/03/19 at 1426, Anesthesia Intra-op Given 12/03/2019 3:20 PM CDT 50 mcg Given 12/03/2019 3:04 PM CDT 50 mcg Given 12/03/2019 2:45 PM CDT 50 mcg heparin 5,000 unit/mL injection As needed, Starting on Mon12/03/19 at 1438, Anesthesia Intra-op Given 12/03/2019 2:38 PM CDT 5,000 Units lidocaine (cardiac) (XYLOCAINE) preservative free injection intravenous, As needed, Starting on Mon12/03/19 at 1428, Anesthesia Intra-op, Indications: Ventricular ArrhythmiasIndications:Ventricular Arrhythmias Given 12/03/2019 2:28 PM CDT 3 mL metroNIDAZOLE (FLAGYL) 500 mg/100 mL in sodium chloride (premix) intravenous, Administer over 30 Minutes, As needed, Starting on Mon12/03/19 at 1436, Anesthesia Intra-op Given 12/03/2019 2:36 PM CDT 500 mg ondansetron (ZOFRAN) injection intravenous, Administer over 2 Minutes, As needed, Starting on Mon12/03/19 at 1541, Anesthesia Intra-op Given 12/03/2019 3:41 PM CDT 4 mg phenylephrine (CHETNA-SYNEPHRINE) 1 mg/10 mL (100 mcg/mL) in sodium chloride 0.9% (premix) As needed, Starting on Mon12/03/19 at 1531, Anesthesia Intra-op Given 12/03/2019 3:31 PM CDT 100 mcg Given 12/03/2019 3:28 PM CDT 100 mcg Given 12/03/2019 2:38 PM CDT 100 mcg propofoL (DIPRIVAN) IV intravenous, As needed, Starting on Mon12/03/19 at 1428, Anesthesia Intra-op Given 12/03/2019 3:25 PM CDT 20 mg Given 12/03/2019 3:03 PM CDT 20 mg Given 12/03/2019 2:45 PM CDT 30 mg sodium chloride 0.9% infusion Continuous PRN, Starting on Mon12/03/19 at 1415, Anesthesia Intra-op New Bag 12/03/2019 2:15 PM CDT succinylcholine (ANECTINE) injection intravenous, As needed, Starting on Mon12/03/19 at 1428, Anesthesia Intra-op Given 12/03/2019 2:28 PM CDT 100 mg documented in this encounter Additional Health Concerns 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 07/08/2019 10/28/2020 5:00 AM C DT COVID19 11/09/2019 11/30/2019 12/26/2019 3:05 AM CDT documented as of this encounter Care Teams Manufacturing Engineer Supervisor Relationship Specialty Start Date End Date Zeke Puente MD [address] [place] [id number] PCP - General 12/02/18 Damon Swanson DO [address] [place] [id number] Medical Oncologist/C Engineer Hematology and Oncology 10/25/17 Karl Smith Jr., MD [address] [place] [address] Surgeon General Surgery 11/07/19 documented as of this encounter
--- OUTSIDE RECORDS SUMMARY | 2024-02-26 21:37 | XMS_ITS | Encounter Summary ---
Author Organization [facility] Healthcare Address [address] [place] [address] Care Team Providers Care Bookseamer Blindstitch Name Role Phone Damon Swanson DO Unavailable eZke Puente MD Primary Care Provider Sarah Baldwin MD, Karl N. Unavailable [phone] Encounter Details Date Type Department Care Team (Late st Contact Info) Description 06/19/2020 5:47 PM CDT Anesthesia Event [facility] Operating Room [facility] [place] [address] Nilay Santoyo DO [address] [place] [address] Anesthesia Record Procedure Summary Procedure Name Responsible Anesthesiologist Anesthesia Start Time Anesthesia Stop Time AMPUTATION ABOVE KNEE-LEFT (Left: Thigh) Nilay Santoyo DO 06/19/20 1747 06/19/201958 Events Date Time Event Comment 06/19/2020 1725 1747 An Start 1752 In Room 1752 An Start Data 1800 An Induction The patient was reevaluated immediately before moderate or deep sedation use and before anesthesia induction. 1802 An Intubation 1805 Anesthesia Ready 1820 Proc Start 1941 An Extubation 194 Proc Fin 1946 an stop data 1950 Out of Room 1958 Handoff to RN I completed my handoff [...] disposition at the time of handoff: PACU 1958 An Stop Meds Name Total fentaNYL 50 mcg lidocaine (CARDIAC) syringe 2 % 3 mL propofol 120 mg rocuronium 30 mg glycopyrrolate 0.8 mg neostigmine 3 mg ondansetron 4 mg dexamethasone 4 mg/ml 4 mg phenylephrine 100 mcg/mL 600 mcg Lactated Ringer's (LR) infusion 1,100 mL * Agents Name O2 Air Desflurane Inspired Desflurane * Blood No blood administrations on file. Lines, Drains, and Airways Type Details Placement Removal Peripheral IV Placement Date: 06/16/20; Orientation: Right; Location: Antecubital; Removal Date: 06/19/20; Removal Time: 193406/16/20 0000 by Kathy Pineda RN 06/19/201934 by Lesa Hawley CRNA External Urinary Device 06/16/20; 1245; Dorina PALMER; Female; Female- One size; 06/21/20; 1999; Not present on admission 06/16/20 1245 by Dorina Fowler RN 06/21/201999 by Layne Alarcon, RN ETT Placement Date: 06/19/20; Placement Time: 1801 (created via procedure documentation); Mask Ventilation: 0; Technique: Direct laryngoscopy; Type: ETT - single; Single Lumen Tube Size: 7 mm; Cuffed: Yes; Laryngoscope: Balaji; Blade Size: 3; Location: Oral; Grade View: Grade I; Insertion Attempts: 1; Placement Verification: Auscultation, Capnometry; Airway Comment: Atraumatic x 1. +BBS/+ETCO2. Mouth and dentition unchanged.; Removal Date: 06/19/20; Removal Time: 194006/19/201801 by Lesa Hawley, MAP AND CHART MOUNTER 06/19/201940 by Lesa Hawley CRNA Peripheral IV Placement Date: 06/19/20; Placement Time: 1814; Catheter Size: 20 G; Orientation: Right, Anterior; Location: Hand; Site Prep: Chlorhexidine; Technique: Anatomical landmarks; Inserted by: GIGI Hawley; Insertion Attempts: 2; Removal Date: 06/22/20; Removal Time: 1633 06/19/201814 by Lesa Hawley CRNA 06/22/20 163 by Marley Grande RN RETIRED Surgical Site 06/19/20; 1838; Le ft; Leg; INCISION IS APPROXIMATED AND INTACT, WITHIN NORMAL LIMITS.DRESSING TO OPERATIVE SITES IS DRY & INTACT.; 06/27/22; 1416; Other (Comment) (healed) 06/19/201837 by Tika Sales RN 06/27/22 141 by Saranya Cramer RN documented in this encounter Social History [...] declined 06/17/2020 How often do you attend lutheran or cheondoism serv ices? 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 Gender Identity Not on file Sexual Orientation Not on file documented as of this encounter OR Notes * Anesthesia Postprocedure Evaluation - Nilay Santoyo DO - 06/19/2020 8:56 PM CDT Patient: Iris Pascual Procedure Summary Date: 06/19/20 Room / Location: [facility] [place] [facility] / [facility] Anesthesia Start: 1746 Anesthesia Stop: 1958 Procedure: AMPUTATION ABOVE KNEE-LEFT (Left Thigh) Diagnosis: (RIGHT KNEE) Surgeons: Arley Peña MD Responsible Provider: Nilay Santoyo DO Anesthesia Type: general ASA Status: 3 Anesthesia Type: general Last vitals BP 108/62 Pulse 62 Temp 36.2 ??C (97.1 ??F) (Temporal) Resp 13 SpO2 100% Anesthesia Post Evaluation Patient location during evaluation: PACU Patient participation: complete - patient participated Level of consciousness: follows simple commands and fully awake Pain management: adequate Airway patency: adequate Anesthetic complications: no Cardiovascular status: acceptable and hemodynamically stable Respiratory status: acceptable Hydration status: acceptable Pt is: normothermic Nausea/Vomiting status: none * Anesthesia Procedure Notes - Lesa Hawley, GIGI - 06/19/2020 6:28 PM CDT Associated Order(s): Airway Airway Patient location: OR Urgency: elective Date/time: 06/19/2020 6:02 PM Indications for airway management: anesthesia Difficult airway: no Staff: Placed by: MAP AND CHART MOUNTER: Lesa Hawley CRNA Airway prep: Preoxygenated: yes Patient position: sniffing Mask difficulty assessment: 0 - not attempted Spontaneous ventilation during airway: absent Sedation level during airway: GA Final airway details: Final airway type: endotracheal airway Tube type: ETT ETT size: 7.0 mm Cuffed: yes Technique used for successful ETT placement: direct laryngoscopy Devices/Methods used in placement: intubating stylet Insertion site: oral Blade type: Balaji Blade size: 3 Cormack-Lehane (direct): grade I - full view of glottis Cuff volume: 6 mL Cuff inflated with: air ETT to lips: 19 cm Placement verified by: auscultation and CO2 detection Secured with: micropore tape. Number of attempts: 1 Additional comments: Atraumatic x 1. +BBS/+ETCO2. Mouth and dentition unchanged. * Anesthesia Preprocedure Evaluation - Nilay Santoyo DO - 06/19/2020 3:07 PM CDT Images from the original note were not included. Anesthesia Evaluation Iris Pascual is a 65 y.o. female Procedure(s): AMPUTATION ABOVE KNEE-LEFT * No Diagnosis Codes entered * HISTORY Past Medical History Information obtained from: patient and chart. Neurological + Dementia/mild cognitive impairment Cardiovascular + Hypertension + Hyperlipidemia + PAD/Aorta disease - Comments: LVEF 55-60% per July 04, 2019 STAR Hepatic / Heme + History of anemia Endocrine / Other + Diabetes mellitus - Diabetes type 2. + Thyroid disease - hypothyroidism + Cancer history Cancer type: Breast. + Infectious disease (osteomyelitis) Functional Capacity Functional capacity: <4 METs Review of Systems Pertinent negatives: SOB; recent cold/flu and fever Patient Active Problem List Diagnosis ??? Malignant neoplasm of upper-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, estrogen receptor negative (CMS/HCC) ??? Moderate malnutrition (CMS/HCC) ??? Sepsis (CMS/HCC) ??? Acute hematogenous osteomyelitis of right foot (CMS/HCC) ??? PVD (peripheral vascular disease) (CMS/HCC) ??? Anemia ??? COVID-19 ??? Hypothyroidism ??? Hyperlipidemia ??? Pressure injury of sacral region, stage 4 (CMS/HCC) ??? Dementia (CMS/HCC) ??? Diabetes mellitus (CMS/HCC) ??? Hypertension Past Medical History: Diagnosis Date ??? Dementia (CMS/HCC) ??? Diabetes mellitus (CMS/HCC) ??? Hypertension Past Surgical History: Procedure Laterality Date ??? HERNIA REPAIR OB History No obstetric history on file. Allergies Allergen Reactions ? ? Codeine Phosphate Nausea & Vomiting Med List Status: Pharmacy Complete Set By: Brina Swain [facility] at 06/16/2020 2:55 PM Status Comment 06/16/2020 2:54 PM Updated via telephone with patient's daughter. No chart history or any other medication history available. Last filled 30 days at [facility] 12/2019- unsure where currently filling. Was prescribed Lantus and Humalog but has not been using for ~ 1 month Taking? Last Dose Start Date End Date Provider amLODIPine (NORVASC) 10 mg tablet Unknown -- -- Provider, MD Almita atorvastatin (LIPITOR) 40 mg tablet Unknown -- -- Provider, MD Almita gabapentin (NEURONTIN) 300 mg capsule Unknown -- -- Provider, MD Almita hydroCHLOROthiazide (HYDRODIURIL) 12.5 mg tablet Unknown -- -- Provider, MD Almita levothyroxine (SYNTHROID) 75 mcg tablet Unknown -- -- Provider, MD Almita potassium chloride ER (potassium chloride ER) 10 mEq CR tablet Unknown -- -- Provider, MD Almita traMADoL (ULTRAM) 50 mg tablet Unknown -- -- Provider, MD Almita Current Facility-Administered Medications: ??? acetaminophen (TYLENOL) tablet 650 mg, 650 mg, oral, Q4H PRN, 650 mg at 06/18/20 1016 ??? amLODIPine (NORVASC) tablet 10 mg, 10 mg, oral, Daily, 10 mg at 06/19/20 0812 ??? cefepime (MAXIPIME) 2,000 mg in sodium chloride 0.9% 100 mL IVPB, 2,000 mg, intravenous, Q12H, Last Rate: 200 mL/hr at 06/19/20 0515, 2,000 mg at 06/19/20 0515 ??? dextrose (GLUTOSE) 40 % gel 15 g, 15 g, oral, Q15 Min PRN OR dextrose (D10W) 10% bolus 250 mL, 250 mL, intravenous, Q15 Min PRN ??? enoxaparin (LOVENOX) syringe 40 mg, 40 mg, subcutaneous, Daily-2100, 40 mg at 06/18/202100 ??? gabapentin (NEURONTIN) capsule 300 mg, 300 mg, oral, BID, 300 mg at 06/19/20 0812 ??? glucagon injection 1 mg, 1 mg, intramuscular, Q30 Min PRN ??? insulin glargine (LANTUS) 100 unit/mL injection 7 Units, 7 Units, subcutaneous, QAM, 7 Units at06/19/20 0814 ??? insulin lispro (HumaLOG, ADMELOG) 100 unit/mL injection 1-2 Units, 1-2 Units, subcutaneous, Nightly, 2 Units at 06/18/202100 ??? insulin lispro (HumaLOG, ADMELOG) 100 unit/mL injection 1-3 Units, 1-3 Units, subcutaneous, TIDwith meals, 2 Units at 06/19/20 0600 ??? levothyroxine (SYNTHROID) tablet 100 mcg, 100 mcg, oral, Daily - 0600, 100 mcg at 06/19/20 0515 ??? ondansetron ODT (ZOFRAN-ODT) disintegrating tablet 4 mg, 4 mg, oral, Q6H PRN OR ondansetron(ZOFRAN) injection 4 mg, 4 mg, intravenous, Q6H PRN ??? oxyCODONE (ROXICODONE) tablet 5 mg, 5 mg, oral, Q4H PRN, 5 mg at 06/19/20 0325 ??? polyethylene glycol (MIRALAX) packet 17 g, 17 g, oral, Daily PRN ??? vancomycin 1250 mg/250 mL in sodium chloride 0.9% (premix) 1,250 mg, 15 mg/kg, intravenous, Q24H, 1,250 mg at 06/18/20 1730 Social History Tobacco Use Smoking Status Never [...] Problems Son ??? No Known Problems Son Vitals: 06/19/20 0403 06/19/20 0800 06/19/20 1211 BP: 119/80 147/82 115/49 Pulse: 75 74 70 Resp: 16 18 18 Temp: 36.9 ??C (98.4 ??F) 36.8 ??C (98.3 ??F) 36.7 ??C (98.1 ??F) SpO2: 98% 96% 99% PT: 06/17/2020: 14.1 sec* INR: 06/17/2020: 1.3* APTT: 06/17/2020: 32 sec Hgb A1C: 06/18/2020: 8.0 %* CBC RBC: 06/17/2020: 3.09 M/cumm* RDW: No results found for requested labs within last 720 hours. MCHC: 06/17/2020: 32.8 g/dL MCH: 06/17/2020: 31.7 pg MCV: 06/17/2020: 96.8 fL* Hct: 06/17/2020: 29.9 %* Hgb: 06/17/2020: 9.8 g/dL* WBC: 06/17/2020: 6.4 K/cumm MPV: 06/17/2020: 9.8 fL Platelets: 06/17/2020: 209 K/cumm RDW CV: 06/17/2020: 15.0 %* RDW Sd: 06/17/2020: 53.1 fL* BMP Glucose: 06/19/2020: 83 mg/dL Calcium: 06/19/2020: 8.6 mg/dL Sodium: 06/19/2020: 135 mmol/L Potassium: 06/19/2020: 3.9 mmol/L CO2: 06/19/2020: 30 mmol/L Chloride: 06/19/2020: 97 mmol/L BUN: 06/19/2020: 16 mg/dL Creatinine: 06/19/2020: 0.63 mg/dL DOS Physical Exam Medical history, medications, and allergies reviewed. Attestation: This PAT evaluation 06/19/2020. Airway Exam: Mallampati: II Cervical ROM: FROM TM distance: normal Jaw ROM: full Cardiovascular Exam: Rate: regular Rhythm: regular Pulmonary Exam: LCTA, bilat Dental Exam: Edentulous Anesthesia Plan ASA 3 My patient is approved for the Anesthesia Controlled Medication protocol when under care of a MAP AND CHART MOUNTER Planned anesthesia: General Team communication plan: oral ET tube Induction: Induction: intravenous. Postoperative Plan: Postoperative administration opioids intended. No postoperative mechanical ventilation intended. Patient's planned disposition post procedure is Floor. Informed Consent: Discussed plan with MAP AND CHART MOUNTER. Anesthesia plan and risks discussed with patient. [...] Procedure Name Priority Date/Time Associated Diagnosis Comments ME AN PROCEDURE PLACEHOLDER Routine 06/19/2020 6:28 PM CDT ME AN ELECTIVE ENDOTRACHEAL AIRWAY Routine 06/19/2020 6:28 PM CDT documented in this encounter Results * ME AN ELECTIVE ENDOTRACHEAL AIRWAY, ME AN PROCEDURE PLACEHOLDER (06/19/2020 6:28 PM CDT) Narrative Lesa Hawley CRNA - 06/19/2020 6:28 PM CDT Lesa Hawley CRNA ? 06/19/2020 ??6:29 PM Airway Patient location: OR Urgency: elective Date/time: 06/19/2020 6:02 PM Indications for airway management: anesthesia Difficult airway: no Staff: Placed by: MAP AND CHART MOUNTER: Lesa Hawley CRNA Airway prep: Preoxygenated: yes Patient position: sniffing Mask difficulty assessment: 0 - not attempted Spontaneous ventilation during airway: absent Sedation level during airway: GA Final airway details: Final airway type: endotracheal airway Tube type: ETT ETT size: 7.0 mm Cuffed: yes Technique used for successful ETT placement: direct laryngoscopy Devices/Methods used in placement: intubating stylet Insertion site: oral Blade type: Balaji Blade size: 3 Cormack-Lehane (direct): grade I - full view of glottis Cuff volume: 6 mL Cuff inflated with: air ETT to lips: 19 cm Placement verified by: auscultation and CO2 detection Secured with: micropore tape. Number of attempts: 1 Additional comments: Atraumatic x 1. +BBS/+ETCO2. Mouth and dentition unchanged. us Nilay Santoyo DO ANESTHESIA ORDERABLES Final Result documented in this encounter Visit Diagnoses Not on filedocumented in this encounter Administered Medications Inactive Administered Medications - up to 3 most recent administrations Medication Order MAR Action Action Date Dose Rate Site dexAMETHasone (DECADRON) 4 mg/mL injection intravenous, Administer over 2 Minutes, As needed, Starting on Mon06/19/20 at 1828, Anesthesia Intra-op Given 06/19/2020 6:28 PM CDT 4 mg fentaNYL (SUBLIMAZE) preservative free injection intravenous, As needed, Starting on Mon06/19/20 at 1822, Anesthesia Intra-op Given 06/19/2020 6:22 PM CDT 50 mcg glycopyrrolate (ROBINUL) injection intravenous, Administer over 1 Minutes, As needed, Starting on Mon06/19/20 at 1854, Anesthesia Intra-op Given 06/19/2020 7:22 PM CDT 0.5 mg Given 06/19/2020 6:54 PM CDT 0.3 mg Lactated Ringer's (LR) infusion 30 mL/hr, intravenous, Continuous, Starting on Mon06/19/20 at 1730 New Bag 06/19/2020 7:22 PM CDT New Bag 06/19/2020 4:57 PM CDT 30 mL/hr 30 mL/hr lidocaine (cardiac) (XYLOCAINE) preservative free injection intravenous, As needed, Starting on Mon06/19/20 at 1800, Anesthesia Intra-op, Indications: Ventricular ArrhythmiasIndications:Ventricular Arrhythmias Given 06/19/2020 6:00 PM CDT 3 mL neostigmine injection intravenous, Administer over 3 Minutes, As needed, Starting on Mon06/19/20 at 1922, Anesthesia Intra-op Given 06/19/2020 7:22 PM CDT 3 mg ondansetron (ZOFRAN) injection intravenous, Administer over 2 Minutes, As needed, Starting on Mon06/19/20 at 1830, Anesthesia Intra-op Given 06/19/2020 6:30 PM CDT 4 mg phenylephrine (CHETNA-SYNEPHRINE) 1 mg/10 mL (100 mcg/mL) in sodium chloride 0.9% (premix) intravenous, As needed, Starting on Mon06/19/20 at 1836, Anesthesia Intra-op Given 06/19/2020 7:36 PM CDT 100 mcg Given 06/19/2020 7:18 PM CDT 100 mcg Given 06/19/2020 6:54 PM CDT 100 mcg propofoL (DIPRIVAN) IV intravenous, As needed, Starting on Mon06/19/20 at 1800, Anesthesia Intra-op Given 06/19/2020 7:33 PM CDT 20 mg Given 06/19/2020 6:00 PM CDT 100 mg rocuronium (ZEMURON) injection intravenous, As needed, Starting on Mon06/19/20 at 1800, Anesthesia Intra-op Given 06/19/2020 6:00 PM CDT 30 mg documented in this encounter Additional Health Concerns 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 07/08/2019 10/28/2020 5:00 AM C DT documented as of this encounter Care Teams Bookseamer Blindstitch Relationship Specialty Start Date End Date Zeke Puente MD [address] [place] [address] PCP - General 12/02/18 Damon Swanson DO [address] [place] [id number] Medical Oncologist/Environmental Aide Hematology and Oncology 10/25/17 Karl Smith Jr., MD [address] [place] [address] Surgeon General Surgery 11/07/19 documented as of this encounter
--- OUTSIDE RECORDS SUMMARY | 2024-02-26 21:37 | XMS_ITS | Encounter Summary ---
Author Organization [facility] Healthcare Address [address] [place] [address] Care Team Providers Care Filter Operator Name Role Phone KikiDamon dale DO Unavailable Zeke Puente MD Primary Care Provider Sarah Baldwin MD, Karl Rosas. Unavailable Encounter Details Date Type Department Care Team (Late st Contact Info) Description 12/03/2019 1:30 PM CDT - 12/03/2019 3:50 PM CDT Surgery [facility] [address] [place] [id number] Arley Peña MD [address] [place] [address] AMPUTATION ABOVE KNEE-RIGHT DO IN 17W Surgery Details Date/Time Status Location OR Service Patient Class Case Class Case Type Trauma Case? 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 Gender Identity Not on file Sexual Orientation Not on file documented as of this encounter Medications at Time of Discharge amLODIPine (NORVASC) 10 mg tablet 0 08/09/2017 1 aspirin 325 mg tablet Take 1 tablet (325 mg total) by mouth daily 30 tablet 1 11/21/2019 1 atorvastatin (LIPITOR) 40 mg tablet Take 1 tablet (40 mg total) by mouth nightly 30 tablet 1 11/20/2019 1 chlorthalidone 25 mg tablet Take 1 tablet (25 mg total) by mouth daily 30 tablet 1 11/21/2019 1 gabapentin (NEURONTIN) 300 mg capsule Take 1 capsule (300 mg total) by mouth 3 (three) times a day 90 capsule 1 11/20/2019 1 insulin glargine (Lantus U-100 Insulin) 100 unit/mL injection Inject 20 Units under the skin daily 10 mL 1 11/20/2019 1 insulin lispro (HumaLOG, ADMELOG) 100 unit/mL injectionIndicati ons:Diabetes Mellitus Inject 1-5 Units under the skin 3 (three) times a day with meals 10 mL 1 11/20/2019 1 insulin lispro (HumaLOG, ADMELOG) 100 unit/mL injection Inject 5 Units under the skin 3 (three) times a day with meals 10 mL 1 11/20/2019 1 levothyroxine (SYNTHROID) 50 mcg tablet Take 1 tablet (50 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 None was replaced. Fluids administered-600cc. SFA and femoral veins dissected and tied individuallywith 2-0 silk. No complications. documented in this encounter Miscellaneous Notes * Op Note - Arley Peña MD - 12/03/2019 12:00 AM CDT Preoperative Diagnosis Gangrene right heel as well as left heel; the right is worse than the left, with osteomyelitis diagnosed on the right heel. Postoperative Diagnosis Gangrene right heel as well as left heel; the right is worse than the left, with osteomyelitis diagnosed on the right heel. Procedure Kjmua-osl-ysrg amputation on the right. Anesthesia General. Procedure in Detail Patient was placed in supine position. General anesthesia was administered. The right heel was prepped out of the field and a stockinette was applied after the area was prepped appropriately. Drapingwas also performed appropriately. Patient had already received antibiotics upstairs in terms of Rocephin; however, Flagyl was not given so 500 mg of Flagyl IV was being administered. Heparin 5000 units subcu was also administered for DVT prophylaxis. After appropriate draping, a fishmouth incision was created whereby the anterior flap was longer than the posterior flap. The lower end of the anterior incision was just above the knee cap. Cutting was carried out with electrocautery followed and or LigaSure and sharp dissection was carried out. Femoral vessels ere isolated and were tied and transected individually. The artery was tied twice proximally/ Muscles were cut with LigaSure and cautery combination. The bone was identified and periosteum was elevated several centimeters proximally. An electric saw was taken and the bone was cut several centimeters higher. The edges were smoothed. After the bone was cut, the amputation knife was used to cut the hamstring muscles.The sciatic nerve was identified and tied separately. The small bleeders were electrocauterized. The big bleeders were controlled with 2-0 stick ties. Field was relatively dry, although she had generalized oozing. The estimated blood loss was about 300+ mL. After irrigation was carried out several interrupted sutures were placed to close the fascia. Skin was closed with samara. Compression dressings were applied including Xeroform gauze. Sponge count was reported correct on 2 occasions. Patient therefore was being transferred to recovery room in a sat isfactory condition. No transfusion was necessary. However, amount of crystalloid given was 600 mL. Job ID/VF Job ID: [id number] documented in this encounter Plan of Treatment Not on file documented as of this encounter Procedures Procedure Name Priority Date/Time Associated Diagnosis Comments EGFR Routine 12/23/2019 5:41 AM CDT CRP (ACUTE PHASE) Routine 12/23/2019 5:4 1 AM CDT COMPREHENSIVE METABOLIC PANEL Routine 12/23/2019 5:41 AM CDT ERYTHROCYTE SEDIMENTATION RATE Timed 12/23/2019 3:47 AM CDT CBC WITHOUT DIFFERENTIAL Timed 12/23/2019 3:47 AM CDT TSH Routine 12/23/2019 3:40 AM CDT EGFR Routine 12/17/2019 4:13 AM CDT BASIC METABOLIC PANEL Routine 12/17/2019 4:13 AM CDT EGFR Timed 12/16/2019 5:27 AM CDT CRP (ACUTE PHASE) Timed 12/16/2019 5:2 7 AM CDT COMPREHENSIVE METABOLIC PANEL Timed 12/16/2019 5:27 AM CDT ERYTHROCYTE SEDIMENTATION RATE Timed 12/16/2019 5:26 AM CDT CBC WITHOUT DIFFERENTIAL Timed 12/16/2019 5:26 AM CDT EGFR Timed 12/09/2019 5:07 AM CDT ERYTHROCYTE SEDIMENTATION RATE Timed 12/09/2019 5:07 AM CDT CBC WITHOUT DIFFERENTIAL Timed 12/09/2019 5:07 AM CDT CRP (ACUTE PHASE) Timed 12/09/2019 5:0 7 AM CDT COMPREHENSIVE METABOLIC PANEL Timed 12/09/2019 5:07 AM CDT EGFR Routine 12/07/2019 3:30 AM CDT DIFFERENTIAL AUTO Routine 12/07/2019 3:3 0 AM CDT CBC WITH AUTO DIFFERENTIAL Routine 12/07/2019 3:30 AM CDT BASIC METABOLIC PANEL Routine 12/07/2019 3:30 AM CDT GLUCOSE, RANDOM STAT 12/06/2019 11:36 PM CDT TYPE AND SCREEN Timed 12/06/2019 11:41 AM CDT PREPARE RBC STAT 12/06/2019 10:16 AM CDT EGFR Routine 12/06/2019 4:32 AM CDT DIFFERENTIAL AUTO Routine 12/06/2019 4:3 2 AM CDT CBC WITH AUTO DIFFERENTIAL Routine 12/06/2019 4:32 AM CDT BASIC METABOLIC PANEL Routine 12/06/2019 4:32 AM CDT EGFR Routine 12/05/2019 4:04 AM CDT DIFFERENTIAL AUTO Routine 12/05/2019 4:0 4 AM CDT CBC WITH AUTO DIFFERENTIAL Routine 12/05/2019 4:04 AM CDT BASIC METABOLIC PANEL Routine 12/05/2019 4:04 AM CDT SURGICAL PATHOLOGY Routine 12/03/2019 3: 53 PM CDT Gangrene (CMS/HCC) PREPARE RBC STAT 12/03/2019 3:17 PM CDT AMPUTATION ABOVE KNEE 12/03/2019 2:14 PM CDT RIGHT LEG EGFR Routine 12/03/2019 5:41 AM CDT DIFFERENTIAL AUTO Routine 12/03/2019 5:4 1 AM CDT B CHECK SAMPLE Routine 12/03/2019 5:41 AM CDT 25-HYDROXYVITAMIN D2 AND D3, SERUM Routine 12/03/2019 5:41 AM CDT CBC WITH AUTO DIFFERENTIAL Routine 12/03/2019 5:41 AM CDT COMPREHENSIVE METABOLIC PANEL Routine 12/03/2019 5:41 AM CDT EGFR Routine 12/02/2019 7:19 AM CDT CRP (ACUTE PHASE) Routine 12/02/2019 7:1 9 AM CDT COMPREHENSIVE METABOLIC PANEL Routine 12/02/2019 7:19 AM CDT DIFFERENTIAL AUTO Routine 12/02/2019 7:1 1 AM CDT CBC WITH AUTO DIFFERENTIAL Routine 12/02/2019 7:11 AM CDT ERYTHROCYTE SEDIMENTATION RATE Routine 12/02/2019 7:11 AM CDT TYPE AND SCREEN Timed 12/01/2019 6:34 PM CDT COVID-19 CORONAVIRUS RNA Routine 11/30/2019 3:18 AM CDT COVID-19 CORONAVIRUS RNA Routine 11/28/2019 4:00 PM CDT BLOOD GAS, ARTERIAL Routine 11/26/2019 1 1:15 AM CDT EGFR Routine 11/25/2019 4:49 AM CDT DIFFERENTIAL AUTO Routine 11/25/2019 4:4 9 AM CDT CBC WITH AUTO DIFFERENTIAL Routine 11/25/2019 4:49 AM CDT ERYTHROCYTE SEDIMENTATION RATE Routine 11/25/2019 4:49 AM CDT CRP (ACUTE PHASE) Routine 11/25/2019 4:4 9 AM CDT COMPREHENSIVE METABOLIC PANEL Routine 11/25/2019 4:49 AM CDT IRON PROFILE W/ IBC Routine 11/22/2019 5 :52 AM CDT XR CHEST 1 VIEW IP Routine 11/22/2019 5:17 AM CDT EGFR Routine 11/22/2019 3:38 AM CDT TSH Routine 11/22/2019 3:38 AM CDT MAGNESIUM Routine 11/22/2019 3:38 AM CDT COMPREHENSIVE METABOLIC PANEL Routine 11/22/2019 3:38 AM CDT DIFFERENTIAL AUTO Routine 11/22/2019 3:3 7 AM CDT CBC WITH AUTO DIFFERENTIAL Routine 11/22/2019 3:37 AM CDT documented in this encounter Results * eGFR (12/23/2019 5:41 AM CDT) eGFR 102 mL/min/1.7 3 m2 [facility] Comment: Interpretive Data Reference Interval Normal ?>/= 90 mL/min/1.73m2 Mildly decreased* ? 60 - 89 mL/min/1.73m2 Mildly to moderately decreased ?45 - 59 mL/min/1.73m2 Moderately to severely decreased ??30 - 44 mL/min/1.73m2 Severely decreased ?15 - 29 mL/min/1.73m2 Kidney Failure ?< 15 ??mL/min/1.73m2 *Relative to young adult level If -Somali multiply value by 1.16. Estimated glomerular filtration rate is determined by [...] 70. Current interpretive data was last reviewed 2016. Blood specimen (specimen) 12/23/2019 5:41 AM CDT 12/23/2019 5:41 AM CDT Bennett Saleh MD LAB BLOOD ORDERABLES Final Re sult [facility] [address] Department [place] [address] * (ABNORMAL) Comprehensive metabolic panel (12/23/2019 5:41 AM CDT) [facility] Sodium 140 135 - 145 mmol/L [facility] Potassium, pl 3.6 3.3 - 4.9 mmol/L [facility] Chloride 96(L) 97 - 110 mmol/L [facility] CO2 33(H) 22 - 32 mmol/L [facility] Anion gap 11 2 - 15 mmol/L [facility] BUN 18 8 - 25 mg/dL [facility] Creatinine 0.51(L) 0.60 - 1.10 mg/dL [facility] Glucose 170 70 - 199 mg/dL [facility] Comment: Interpretive Data Fasting glucose >/= [...] interpretive data was last revised 2017. Calcium 8.7 8.5 - 10.3 mg/dL [facility] Bilirubin, total 0.2 0.1 - 1.2 mg/dL [facility] Protein, pl 6.8 6.5 - 8.5 g/dL [facility] Albumin 3.2(L) 3.5 - 5.0 g/dL [facility] Alk phos 26(L) 40 - 130 Units/L [facility] ALT 11 7 - 45 Units/L [facility] AST 16 10 - 45 Units/L [facility] Blood specimen (specimen) 12/23/2019 5:41 AM CDT 12/23/2019 5:41 AM CDT Bennett Saleh MD LAB BLOOD ORDERABLES Final Re sult [facility] [address] Department [place] [address] * CRP (acute phase) (12/23/2019 5:41 AM CDT) CRP 8.4 <=10.0 mg/L [facility] Blood specimen (specimen) 12/23/2019 5:41 AM CDT 12/23/2019 5:41 AM CDT Bennett Saleh MD LAB BLOOD ORDERABLES Final Re sult Performing Organization Address City/[facility]/ZIP Co de Phone Number [facility] [address] [place] [address] * (ABNORMAL) CBC without differential (12/23/2019 3:47 AM CDT) WBC 5.1 3.8 - 9.9 K/cumm [facility] Hgb 9.4(L) 11.9 - 15.5 g/dL [facility] Hct 29.3(L) 35.6 - 45.5 % [facility] Plt 376 150 - 400 K/cumm [facility] MPV 9.2 9.1 - 12.3 fL [facility] RBC 3.08(L) 3.90 - 5.20 M/cumm [facility] MCV 95.1 81.3 - 96.4 fL [facility] MCH 30.5 27.1 - 33.3 pg [facility] MCHC 32.1(L) 32.3 - 35.7 g/dL [facility] RDW CV 17.0(H) 11.1 - 14.9 % [facility] RDW SD 59.7(H) 35.7 - 48.1 fL [facility] NRBC abs 0.00 0.00 - 0.01 K/cumm [facility] Blood specimen (specimen) 12/23/2019 3:47 AM CDT 12/23/2019 3:47 AM CDT Vaishali Clemente DO LAB BLOOD ORDERABLES Edited Result - Final [facility] [address] [employer] [place], [place] [id number] * (ABNORMAL) Erythrocyte sedimentation rate (12/23/2019 3:47 AM CDT) Erythrocyte sedimentation rate 117(H) 1 - 30 mm/hr [facility] Blood specimen (specimen) 12/23/2019 3:47 AM CDT 12/23/2019 3:47 AM CDT us Vaishali Clemente DO LAB BLOOD ORDERABLES Final Result Performing Organization Address [facility] Co de Phone Number [facility] [address] [facility] [place] [address] * (ABNORMAL) TSH (12/23/2019 3:40 AM CDT) Thyroid Stimulating Hormone 5.62(H) 0.30 - 4.20 mcIUnit/mL [facility] Blood specimen (specimen) 12/23/2019 3:40 AM CDT 12/23/2019 3:45 AM CDT us Bennett Saleh MD LAB BLOOD ORDERABLES Final Re sult Performing Organization Address [facility] de Phone Number [facility] [address] [place] [address] * eGFR (12/17/2019 4:13 AM CDT) eGFR 96 mL/min/1.7 3 m2 [facility] Comment: Interpretive Data Reference Interval Normal ?>/= 90 mL/min/1.73m2 Mildly decreased* ? 60 - 89 mL/min/1.73m2 Mildly to moderately decreased ?45 - 59 mL/min/1.73m2 Moderately to severely decreased ??30 - 44 mL/min/1.73m2 Severely decreased ?15 - 29 mL/min/1.73m2 Kidney Failure ?< 15 ??mL/min/1.73m2 *Relative to young adult level If -Somali multiply value by 1.16. Estimated glomerular filtration rate is determined by [...] 70. Current interpretive data was last reviewed 2016. Blood specimen (specimen) 12/17/2019 4:13 AM CDT 12/17/2019 4:13 AM CDT us Bennett Saleh MD LAB BLOOD ORDERABLES Final Re sult [facility] [address] Department [place] [address] * (ABNORMAL) Basic metabolic panel (12/17/2019 4:13 AM CDT) Sodium 138 135 - 145 mmol/L [facility] Potassium, pl 3.3 3.3 - 4.9 mmol/L [facility] Chloride 94(L) 97 - 110 mmol/L [facility] CO2 36(H) 22 - 32 mmol/L [facility] Anion gap 8 2 - 15 mmol/L [facility] BUN 19 8 - 25 mg/dL [facility] Creatinine 0.60 0.60 - 1.10 mg/dL [facility] Glucose 75 70 - 199 mg/dL [facility] Comment: Interpretive Data Fasting glucose >/= [...] 2017. Calcium 8.6 8.5 - 10.3 mg/dL [facility] Blood specimen (specimen) 12/17/2019 4:13 AM CDT 12/17/2019 4:13 AM CDT us Bennett Saleh MD LAB BLOOD ORDERABLES Final Re sult Performing Organization Address [facility]/ZIP [facility] Phone Number [facility] [address] [place] [address] * eGFR (12/16/2019 5:27 AM CDT) eGFR 97 mL/min/1.7 3 m2 [facility] Comment: Interpretive Data Reference Interval Normal ?>/= 90 mL/min/1.73m2 Mildly decreased* ? 60 - 89 mL/min/1.73m2 Mildly to moderately decreased ?45 - 59 mL/min/1.73m2 Moderately to severely decreased ??30 - 44 mL/min/1.73m2 Severely decreased ?15 - 29 mL/min/1.73m2 Kidney Failure ?< 15 ??mL/min/1.73m2 *Relative to young adult level If -Somali multiply value by 1.16. Estimated glomerular filtration rate is determined by [...] 70. Current interpretive data was last reviewed 2016. Blood specimen (specimen) 12/16/2019 5:27 AM CDT 12/16/2019 5:27 AM CDT us Vaishali Clemente DO LAB BLOOD ORDERABLES Final Result Performing Organization Address [facility] Co de Phone Number [facility] [address] [place] [address] * (ABNORMAL) Comprehensive metabolic panel (12/16/2019 5:27 AM CDT) Sodium 139 135 - 145 mmol/L [facility] Potassium, pl 2.9(L) 3.3 - 4.9 mmol/L [facility] Chloride 93(L) 97 - 110 mmol/L [facility] CO2 37(H) 22 - 32 mmol/L [facility] Anion gap 9 2 - 15 mmol/L [facility] BUN 17 8 - 25 mg/dL [facility] Creatinine 0.59(L) 0.60 - 1.10 mg/dL [facility] Glucose 45(C) 70 - 199 mg/dL [facility] Comment: Critical result called to and read back by Rochelle Lao RN on 12/16/19 0608 to [email or web address] Interpretive Data Fasting glucose >/= 126 mg/dl [...] interpretive data was last revised 2017. Calcium 8.5 8.5 - 10.3 mg/dL [facility] Bilirubin, total 0.2 0.1 - 1.2 mg/dL [facility] Protein, pl 7.0 6.5 - 8.5 g/dL [facility] Albumin 3.1(L) 3.5 - 5.0 g/dL [facility] Alk phos 24(L) 40 - 130 Units/L [facility] ALT 11 7 - 45 Units/L [facility] AST 24 10 - 45 Units/L [facility] Blood specimen (specimen) 12/16/2019 5:27 AM CDT 12/16/2019 5:27 AM CDT Vaishali Clemente DO LAB BLOOD ORDERABLES Final Result [facility] [address] Department [place] [address] * CRP (acute phase) (12/16/2019 5:27 AM CDT) [facility] CRP 5.7 <=10.0 mg/L [facility] Blood specimen (specimen) 12/16/2019 5:27 AM CDT 12/16/2019 5:27 AM CDT Vaishali Clemente LAB BLOOD ORDERABLES Final Result Performing Organization Address [facility] Co de Phone Number [facility] [address] Department [place] [address] * (ABNORMAL) CBC without differential (12/16/2019 5:26 AM CDT) [facility] WBC 5.4 3.8 - 9.9 K/cumm [facility] Hgb 9.2(L) 11.9 - 15.5 g/dL [facility] Hct 29.2(L) 35.6 - 45.5 % [facility] Plt 403(H) 150 - 400 K/cumm [facility] MPV 8.9(L) 9.1 - 12.3 fL [facility] RBC 3.08(L) 3.90 - 5.20 M/cumm [facility] MCV 94.8 81.3 - 96.4 fL [facility] MCH 29.9 27.1 - 33.3 pg [facility] MCHC 31.5(L) 32.3 - 35.7 g/dL [facility] RDW CV 17.9(H) 11.1 - 14.9 % [facility] RDW SD 62.2(H) 35.7 - 48.1 fL [facility] NRBC abs 0.00 0.00 - 0.01 K/cumm [facility] Blood specimen (specimen) 12/16/2019 5:26 AM CDT 12/16/2019 5:26 AM CDT Vaishali Clemente DO LAB BLOOD ORDERABLES Edited Result - Final [facility] [address] [place] [address] * (ABNORMAL) Erythrocyte sedimentation rate (12/16/2019 5:26 AM CDT) Erythrocyte sedimentation rate 124(H) 1 - 30 mm/hr [facility] Blood specimen (specimen) 12/16/2019 5:26 AM CDT 12/16/2019 5:26 AM CDT Vaishali Clemente DO LAB BLOOD ORDERABLES Final Result Performing Organization Address [facility] Co de Phone Number [facility] [address] [place] [address] * eGFR (12/09/2019 5:07 AM CDT) eGFR 96 mL/min/1.7 3 m2 [facility] Comment: Interpretive Data Reference Interval Normal ?>/= 90 mL/min/1.73m2 Mildly decreased* ? 60 - 89 mL/min/1.73m2 Mildly to moderately decreased ?45 - 59 mL/min/1.73m2 Moderately to severely decreased ??30 - 44 mL/min/1.73m2 Severely decreased ?15 - 29 mL/min/1.73m2 Kidney Failure ?< 15 ??mL/min/1.73m2 *Relative to young adult level If -Somali multiply value by 1.16. Estimated glomerular filtration rate is determined by [...] 70. Current interpretive data was last reviewed 2016. Blood specimen (specimen) 12/09/2019 5:07 AM CDT 12/09/2019 5:07 AM CDT Vaishali Clemente DO LAB BLOOD ORDERABLES Final Result Performing Organization Address [facility]/ZIP Co de Phone Number [facility] [address] Department [place] [address] * (ABNORMAL) CBC without differential (12/09/2019 5:07 AM CDT) WBC 8.3 3.8 - 9.9 K/cumm [facility] Hgb 9.1(L) 11.9 - 15.5 g/dL [facility] Hct 28.1(L) 35.6 - 45.5 % [facility] Plt 340 150 - 400 K/cumm [facility] MPV 8.8(L) 9.1 - 12.3 fL [facility] RBC 3.01(L) 3.90 - 5.20 M/cumm [facility] MCV 93.4 81.3 - 96.4 fL [facility] MCH 30.2 27.1 - 33.3 pg [facility] MCHC 32.4 32.3 - 35.7 g/dL [facility] RDW CV 18.0(H) 11.1 - 14.9 % [facility] RDW SD 57.9(H) 35.7 - 48.1 fL [facility] NRBC abs 0.00 0.00 - 0.01 K/cumm [facility] Blood specimen (specimen) 12/09/2019 5:07 AM CDT 12/09/2019 5:07 AM CDT Vaishali Clemente DO LAB BLOOD ORDERABLES Edited Result - Final Performing Organization Address [facility]/ZIP Co de Phone Number [facility] [address] Department [place] [address] * (ABNORMAL) Comprehensive metabolic panel (12/09/2019 5:07 AM CDT) Sodium 136 135 - 145 mmol/L [facility] Potassium, pl 3.7 3.3 - 4.9 mmol/L [facility] Chloride 93(L) 97 - 110 mmol/L [facility] CO2 33(H) 22 - 32 mmol/L [facility] Anion gap 10 2 - 15 mmol/L [facility] BUN 34(H) 8 - 25 mg/dL [facility] Creatinine 0.60 0.60 - 1.10 mg/dL [facility] Glucose 76 70 - 199 mg/dL [facility] Comment: Interpretive Data Fasting glucose >/= [...] interpretive data was last revised 2017. Calcium 9.0 8.5 - 10.3 mg/dL [facility] Bilirubin, total 0.2 0.1 - 1.2 mg/dL [facility] Protein, pl 7.3 6.5 - 8.5 g/dL [facility] Albumin 2.7(L) 3.5 - 5.0 g/dL [facility] Alk phos 36(L) 40 - 130 Units/L [facility] ALT 10 7 - 45 Units/L [facility] AST 21 10 - 45 Units/L [facility] Blood specimen (specimen) 12/09/2019 5:07 AM CDT 12/09/2019 5:07 AM CDT us Vaishali Clemente DO LAB BLOOD ORDERABLES Final Result [facility] [address] [facility] [place] [address] * (ABNORMAL) Erythrocyte sedimentation rate (12/09/2019 5:07 AM CDT) Erythrocyte sedimentation rate 123(H) 1 - 30 mm/hr [facility] Blood specimen (specimen) 12/09/2019 5:07 AM CDT 12/09/2019 5:07 AM CDT Vaishali Clemente DO LAB BLOOD ORDERABLES Final Result Performing Organization Address [facility] Co de Phone Number [facility] [address] [facility] [place] [address] * (ABNORMAL) CRP (acute phase) (12/09/2019 5:07 AM CDT) Pathologist [facility] CRP 22.7(H) <=10.0 mg/L [facility] Blood specimen (specimen) 12/09/2019 5:07 AM CDT 12/09/2019 5:07 AM CDT us Vaishali Clemente DO LAB BLOOD ORDERABLES Final Result Performing Organization Address [facility] de Phone Number [facility] [address] [facility] [place] [address] * eGFR (12/07/2019 3:30 AM CDT) eGFR 99 mL/min/1.7 3 m2 [facility] Comment: Interpretive Data Reference Interval Normal ?>/= 90 mL/min/1.73m2 Mildly decreased* ? 60 - 89 mL/min/1.73m2 Mildly to moderately decreased ?45 - 59 mL/min/1.73m2 Moderately to severely decreased ??30 - 44 mL/min/1.73m2 Severely decreased ?15 - 29 mL/min/1.73m2 Kidney Failure ?< 15 ??mL/min/1.73m2 *Relative to young adult level If -Somali multiply value by 1.16. Estimated glomerular filtration rate is determined by [...] 70. Current interpretive data was last reviewed 2016. Blood specimen (specimen) 12/07/2019 3:30 AM CDT 12/07/2019 3:51 AM CDT Bennett Saleh MD LAB BLOOD ORDERABLES Final Re sult [facility] [address] Department [place] [address] * Differential, auto (12/07/2019 3:30 AM CDT) Neutrophil abs 6.2 1.7 - 6.5 K/cumm [facility] Imm gran abs 0.1 0.0 - 0.1 K/cumm [facility] Lymphocyte abs 1.6 0.8 - 3.3 K/cumm [facility] Monocyte abs 0.6 0.2 - 0.8 K/cumm [facility] Eosinophil abs 0.4 0.0 - 0.5 K/cumm [facility] Basophil abs 0.1 0.0 - 0.1 K/cumm [facility] Neutrophil pct 70.2 % [facility] Comment: Interpretive Data Percent cell count reference ranges are not reported, since discordance with absolute values may lead to misinterpretation of CBC data. Current Interpretive Data was last revised on 2017. Imm gran pct 0.6 % [facility] Comment: Interpretive Data Percent cell count reference ranges are not reported, since discordance with absolute values may lead to misinterpretation of CBC data. Current Interpretive Data was last revised on 2017. Lymphocyte pct 18.1 % [facility] Comment: Interpretive Data Percent cell count reference ranges are not reported, since discordance with absolute values may lead to misinterpretation of CBC data. Current Interpretive Data was last revised on 2017. Monocyte pct 6.4 % [facility] Comment: Interpretive Data Percent cell count reference ranges are not reported, since discordance with absolute values may lead to misinterpretation of CBC data. Current Interpretive Data was last revised on 2017. Eosinophil pct 4.0 % [facility] Comment: Interpretive Data Percent cell count reference ranges are not reported, since discordance with absolute values may lead to misinterpretation of CBC data. Current Interpretive Data was last revised on 2017. Basophil pct 0.7 % [facility] Comment: Interpretive Data Percent cell count reference ranges are not reported, since discordance with absolute values may lead to misinterpretation of CBC data. Current Interpretive Data was last revised on 2017. Blood specimen (specimen) 12/07/2019 3:30 AM CDT 12/07/2019 3:51 AM CDT Bennett Saleh MD LAB BLOOD ORDERABLES Final Re sult [facility] [address] Department [place] [address] * (ABNORMAL) Basic metabolic panel (12/07/2019 3:30 AM CDT) Sodium 131(L) 135 - 145 mmol/L [facility] Potassium, pl 4.8 3.3 - 4.9 mmol/L [facility] Chloride 91(L) 97 - 110 mmol/L [facility] CO2 29 22 - 32 mmol/L [facility] Anion gap 11 2 - 15 mmol/L [facility] BUN 29(H) 8 - 25 mg/dL [facility] Creatinine 0.56(L) 0.60 - 1.10 mg/dL [facility] Glucose 125 70 - 199 mg/dL [facility] Comment: Interpretive Data Fasting glucose >/= [...] 2017. Calcium 8.6 8.5 - 10.3 mg/dL [facility] Blood specimen (specimen) 12/07/2019 3:30 AM CDT 12/07/2019 3:51 AM CDT us Bennett Saleh MD LAB BLOOD ORDERABLES Final Re sult [facility] [address] Department [place] [address] * (ABNORMAL) CBC with auto differential (12/07/2019 3:30 AM CDT) WBC 8.9 3.8 - 9.9 K/cumm [facility] Hgb 8.7(L) 11.9 - 15.5 g/dL [facility] Hct 26.1(L) 35.6 - 45.5 % [facility] Plt 251 150 - 400 K/cumm [facility] MPV 9.4 9.1 - 12.3 fL [facility] RBC 2.84(L) 3.90 - 5.20 M/cumm [facility] MCV 91.9 81.3 - 96.4 fL [facility] MCH 30.6 27.1 - 33.3 pg [facility] MCHC 33.3 32.3 - 35.7 g/dL [facility] RDW CV 17.1(H) 11.1 - 14.9 % [facility] RDW SD 57.3(H) 35.7 - 48.1 fL [facility] NRBC abs 0.03(H) 0.00 - 0.01 K/cumm [facility] Blood specimen (specimen) 12/07/2019 3:30 AM CDT 12/07/2019 3:51 AM CDT Bennett Saleh MD LAB BLOOD ORDERABLES Final Re sult Performing Organization Address [facility] Co de Phone Number [facility] [address] [place] [address] * (ABNORMAL) Glucose, random (12/06/2019 11:36 PM CDT) Glucose 65(L) 70 - 199 mg/dL [facility] Comment: Interpretive Data Fasting glucose >/= [...] Current interpretive data was last revised 2017. Blood specimen (specimen) 12/06/2019 11:36 PM CDT 12/06/2019 11:36 PM CDT Narrative [facility] - 12/07/2019 12:02 AM CDT Per hypoglycemia protocol Bennett Saleh MD LAB BLOOD ORDERABLES Final Re sult Performing Organization Address [facility]/ZIP Co de Phone Number [facility] [address] Department of [employer] [place], [place] [phone] * Type and screen (12/06/2019 11:41 AM CDT) Veronica, indirect Negative [facility] ABO Rh O Positive [facility] Blood specimen (specimen) 12/06/2019 11:41 AM CDT 12/06/2019 12:09 PM CDT Narrative [facility] - 12/06/2019 12:48 PM CDT Has the patient had Daratumumab or Isatuximab in the past 6 months?->Unknown Bennett Saleh MD LAB BLOOD BANK TEST ORDERABLE S Final Result Performing Organization Address [facility] de Phone Number [facility] [address] [facility] [employer] [place], [place] [id number] * Prepare RBC: 1 Units (12/06/2019 10:16 AM CDT) [facility] Product code [id number] [facility] Unit Number [id number] [facility] Product Blood Type OPOS [facility] Dispense Status PRESUMED TRANSFUSED [facility] Blood specimen (specimen) 12/06/2019 10:16 AM CDT [facility] - 12/07/2019 10:15 AM CDT Are special requirements needed? (all products are leukoreduced)->No Date required:-20191206 LRRBC # of [id number] Reasons:-Hgb <7 g/dL} Bennett Saleh MD BLOOD BANK PRODUCT ORDERABLES Final Result Performing Organization Address [facility] de Phone Number [facility] [address] [facility] [place] [address] * eGFR (12/06/2019 4:32 AM CDT) [facility] eGFR 94 mL/min/1.7 3 m2 [facility] Comment: Interpretive Data Reference Interval Normal ?>/= 90 mL/min/1.73m2 Mildly decreased* ? 60 - 89 mL/min/1.73m2 Mildly to moderately decreased ?45 - 59 mL/min/1.73m2 Moderately to severely decreased ??30 - 44 mL/min/1.73m2 Severely decreased ?15 - 29 mL/min/1.73m2 Kidney Failure ?< 15 ??mL/min/1.73m2 *Relative to young adult level If -Somali multiply value by 1.16. Estimated glomerular filtration rate is determined by [...] 70. Current interpretive data was last reviewed 2016. Blood specimen (specimen) 12/06/2019 4:32 AM CDT 12/06/2019 4:32 AM CDT us Bennett Saleh MD LAB BLOOD ORDERABLES Final Re sult [facility] [address] Department [place] [address] * Differential, auto (12/06/2019 4:32 AM CDT) Neutrophil abs 5.8 1.7 - 6.5 K/cumm [facility] Imm gran abs 0.1 0.0 - 0.1 K/cumm [facility] Lymphocyte abs 2.0 0.8 - 3.3 K/cumm [facility] Monocyte abs 0.8 0.2 - 0.8 K/cumm [facility] Eosinophil abs 0.3 0.0 - 0.5 K/cumm [facility] Basophil abs 0.1 0.0 - 0.1 K/cumm [facility] Neutrophil pct 64.2 % [facility] Comment: Interpretive Data Percent cell count reference ranges are not reported, since discordance with absolute values may lead to misinterpretation of CBC data. Current Interpretive Data was last revised on 2017. Imm gran pct 0.6 % [facility] Comment: Interpretive Data Percent cell count reference ranges are not reported, since discordance with absolute values may lead to misinterpretation of CBC data. Current Interpretive Data was last revised on 2017. Lymphocyte pct 21.9 % [facility] Comment: Interpretive Data Percent cell count reference ranges are not reported, since discordance with absolute values may lead to misinterpretation of CBC data. Current Interpretive Data was last revised on 2017. Monocyte pct 8.9 % [facility] Comment: Interpretive Data Percent cell count reference ranges are not reported, since discordance with absolute values may lead to misinterpretation of CBC data. Current Interpretive Data was last revised on 2017. Eosinophil pct 3.8 % [facility] Comment: Interpretive Data Percent cell count reference ranges are not reported, since discordance with absolute values may lead to misinterpretation of CBC data. Current Interpretive Data was last revised on 2017. Basophil pct 0.6 % [facility] Comment: Interpretive Data Percent cell count reference ranges are not reported, since discordance with absolute values may lead to misinterpretation of CBC data. Current Interpretive Data was last revised on 2017. Blood specimen (specimen) 12/06/2019 4:32 AM CDT 12/06/2019 4:32 AM CDT Bennett Saleh MD LAB BLOOD ORDERABLES Final Re sult [facility] [address] Department [place] [address] * (ABNORMAL) CBC with auto differential (12/06/2019 4:32 AM CDT) WBC 9.0 3.8 - 9.9 K/cumm [facility] Hgb 6.6(L) 11.9 - 15.5 g/dL [facility] Hct 20.8(L) 35.6 - 45.5 % [facility] Plt 294 150 - 400 K/cumm [facility] MPV 9.0(L) 9.1 - 12.3 fL [facility] RBC 2.24(L) 3.90 - 5.20 M/cumm [facility] MCV 92.9 81.3 - 96.4 fL [facility] MCH 29.5 27.1 - 33.3 pg [facility] MCHC 31.7(L) 32.3 - 35.7 g/dL [facility] RDW CV 18.0(H) 11.1 - 14.9 % [facility] RDW SD 61.8(H) 35.7 - 48.1 fL [facility] NRBC abs 0.00 0.00 - 0.01 K/cumm [facility] Blood specimen (specimen) 12/06/2019 4:32 AM CDT 12/06/2019 4:32 AM CDT us Bennett Saleh MD LAB BLOOD ORDERABLES Final Re sult [facility] [address] Department [place] [address] * (ABNORMAL) Basic metabolic panel (12/06/2019 4:32 AM CDT) Sodium 136 135 - 145 mmol/L [facility] Potassium, pl 4.0 3.3 - 4.9 mmol/L [facility] Chloride 92(L) 97 - 110 mmol/L [facility] CO2 34(H) 22 - 32 mmol/L [facility] Anion gap 10 2 - 15 mmol/L [facility] BUN 36(H) 8 - 25 mg/dL [facility] Creatinine 0.64 0.60 - 1.10 mg/dL [facility] Glucose 61(L) 70 - 199 mg/dL [facility] Comment: Interpretive Data Fasting glucose >/= [...] interpretive data was last revised 2017. Calcium 9.0 8.5 - 10.3 mg/dL [facility] Blood specimen (specimen) 12/06/2019 4:32 AM CDT 12/06/2019 4:32 AM CDT Bennett Saleh MD LAB BLOOD ORDERABLES Final Re sult [facility] [address] Department [place] [address] * eGFR (12/05/2019 4:04 AM CDT) eGFR 92 mL/min/1.7 3 m2 [facility] Comment: Interpretive Data Reference Interval Normal ?>/= 90 mL/min/1.73m2 Mildly decreased* ? 60 - 89 mL/min/1.73m2 Mildly to moderately decreased ?45 - 59 mL/min/1.73m2 Moderately to severely decreased ??30 - 44 mL/min/1.73m2 Severely decreased ?15 - 29 mL/min/1.73m2 Kidney Failure ?< 15 ??mL/min/1.73m2 *Relative to young adult level If -Somali multiply value by 1.16. Estimated glomerular filtration rate is determined by [...] 70. Current interpretive data was last reviewed 2016. Blood specimen (specimen) 12/05/2019 4:04 AM CDT 12/05/2019 4:04 AM CDT us Bennett Saleh MD LAB BLOOD ORDERABLES Final Re sult [facility] [address] Department [place] [address] * (ABNORMAL) Differential, auto (12/05/2019 4:04 AM CDT) Neutrophil abs 7.3(H) 1.7 - 6.5 K/cumm [facility] Imm gran abs 0.1 0.0 - 0.1 K/cumm [facility] Lymphocyte abs 1.8 0.8 - 3.3 K/cumm [facility] Monocyte abs 0.9(H) 0.2 - 0.8 K/cumm [facility] Eosinophil abs 0.1 0.0 - 0.5 K/cumm [facility] Basophil abs 0.1 0.0 - 0.1 K/cumm [facility] Neutrophil pct 71.8 % [facility] Comment: Interpretive Data Percent cell count reference ranges are not reported, since discordance with absolute values may lead to misinterpretation of CBC data. Current Interpretive Data was last revised on 2017. Imm gran pct 0.5 % [facility] Comment: Interpretive Data Percent cell count reference ranges are not reported, since discordance with absolute values may lead to misinterpretation of CBC data. Current Interpretive Data was last revised on 2017. Lymphocyte pct 17.1 % [facility] Comment: Interpretive Data Percent cell count reference ranges are not reported, since discordance with absolute values may lead to misinterpretation of CBC data. Current Interpretive Data was last revised on 2017. Monocyte pct 8.7 % [facility] Comment: Interpretive Data Percent cell count reference ranges are not reported, since discordance with absolute values may lead to misinterpretation of CBC data. Current Interpretive Data was last revised on 2017. Eosinophil pct 1.3 % [facility] Comment: Interpretive Data Percent cell count reference ranges are not reported, since discordance with absolute values may lead to misinterpretation of CBC data. Current Interpretive Data was last revised on 2017. Basophil pct 0.6 % [facility] Comment: Interpretive Data Percent cell count reference ranges are not reported, since discordance with absolute values may lead to misinterpretation of CBC data. Current Interpretive Data was last revised on 2017. Blood specimen (specimen) 12/05/2019 4:04 AM CDT 12/05/2019 4:04 AM CDT Bnenett Saleh MD LAB BLOOD ORDERABLES Final Re sult [facility] [address] Department [place] [address] * (ABNORMAL) Basic metabolic panel (12/05/2019 4:04 AM CDT) Sodium 128(L) 135 - 145 mmol/L [facility] Potassium, pl 3.9 3.3 - 4.9 mmol/L [facility] Chloride 87(L) 97 - 110 mmol/L [facility] CO2 31 22 - 32 mmol/L [facility] Anion gap 10 2 - 15 mmol/L [facility] BUN 41(H) 8 - 25 mg/dL [facility] Creatinine 0.69 0.60 - 1.10 mg/dL [facility] Glucose 86 70 - 199 mg/dL [facility] Comment: Interpretive Data Fasting glucose >/= [...] 2017. Calcium 8.9 8.5 - 10.3 mg/dL [facility] Blood specimen (specimen) 12/05/2019 4:04 AM CDT 12/05/2019 4:04 AM CDT Bennett Saleh MD LAB BLOOD ORDERABLES Final Re sult Performing Organization Address [facility]/ZIP Co de Phone Number [facility] [address] Department [place] [address] * (ABNORMAL) CBC with auto differential (12/05/2019 4:04 AM CDT) WBC 10.2(H) 3.8 - 9.9 K/cumm [facility] Hgb 7.0(L) 11.9 - 15.5 g/dL [facility] Hct 21.8(L) 35.6 - 45.5 % [facility] Plt 325 150 - 400 K/cumm [facility] MPV 9.2 9.1 - 12.3 fL [facility] RBC 2.36(L) 3.90 - 5.20 M/cumm [facility] MCV 92.4 81.3 - 96.4 fL [facility] MCH 29.7 27.1 - 33.3 pg [facility] MCHC 32.1(L) 32.3 - 35.7 g/dL [facility] RDW CV 18.1(H) 11.1 - 14.9 % [facility] RDW SD 60.3(H) 35.7 - 48.1 fL [facility] NRBC abs 0.00 0.00 - 0.01 K/cumm [facility] Blood specimen (specimen) 12/05/2019 4:04 AM CDT 12/05/2019 4:04 AM CDT Bennett Saleh MD LAB BLOOD ORDERABLES Final Re sult [facility] [address] Department [place] [address] * Surgical pathology (12/03/2019 3:53 PM CDT) Tissue (Amputation non-tramatic) 12/03/2019 3:16 PM CDT Comment:No preservative Narrative PATHOLOGY [facility] - 12/16/2019 10:07 PM CDT [place] [address] [place], [place] ??[address] Tele: ?? Marti Mueller MD - Plant Controllercorporate development manager PATHOLOGY REPORT Patient Name: ??IRIS PASCUAL Address: ??[address], [place] [address] Gender: ??F : ??1955 (Age: 64) Service: ??LTC Location: ??572, ?? Hospital #: ??[id number] Patient Type: ??MB OP in a Bed Accession #: ? [id number] Taken: ? 12/03/2019 Received ? 12/05/2019 Reported: ? 12/16/2019 Physician(s): ? Dr. Arley Peña M.D. Zeke Puente MD DIAGNOSIS: Extremity, lower, right leg, [id number] amputation: ? -Acute osteomyelitis -Skin, with acute inflammation, ulcer, necrosis, parakeratosis, hyperplastic and reactive epithelial changes -Viable skin and soft tissue margin -Vessels, with calcified plaque as12/16/2019 16:29 Examining Pathologist: Daniel Pool M.D. Report Reviewed and Electronically Signed By ??Daniel Pool M.D. SPECIMEN TYPE: A: RIGHT LEG CLINICAL IMPRESSION AND HISTORY: Gangrene. 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 ??The skin, soft tissue, and bone at the margin appear viable. ??There is a 10.3 x 7.8 cm black-green ulcer at the heel of the foot. ??The remainder of the skin is mottled purple-red. ??Approximately 5 - 10% of the popliteal artery is stenosed by yellow plaque. ??Approximately 15 - 20% of posterior artery is stenosed by calcified yellow plaque. ?? Approximately 10 - 15 % of the anterior artery is stenosed by yellow plaque. ??Retail Visual Merchandiser sections are submitted as follows: ??A1 - bone marrow from bony margin of resection; A2 - skin and soft tissue from resection surface; A3 - skin from heel of foot; A4 ??bone deep to the necrotic skin; A5 - popliteal, posterior and anterior vessels. ??Cassettes A4 and A5 are submitted for decalcification. [facility]/12/06/2019 17:28 ? [facility] MICROSCOPIC DESCRIPTION: Microscopic examination supports the above captioned diagnosis. ??Sections of bone marrow scrapings from bony margin appear viable. Clerical Data Follows A; 80092, 25150 REPORT IMAGES AND/OR SCANNED DOCUMENTS ONLY VIEWABLE IN PDF FORMAT The immunohistochemical test(s) cited in this report, if any, was developed and its performance characteristics determined by [facility]. ??It has not been cleared or approved by the U.S. Food and Drug Administration. ??The FDA has determined that such clearance or approval is not necessary. ??This test is used for clinical purposes. ??It should not be regarded as investigational or for research. ??[facility] is certified under the Clinical Laboratory [...] Peña MD LAB PATHOLOGY ORDERABLES Final Result PATHOLOGY [facility] Laboratory Receiving [address] [place], [place] [id number] * Prepare RBC: 1 Units (12/03/2019 3:17 PM CDT) Product code [id number] [facility] Unit Number [id number] [facility] Product Blood Type OPOS [facility] Dispense Status RETURNED [facility] Blood specimen (specimen) 12/03/2019 3:17 PM CDT Narrative [facility] - 12/05/2019 7:28 AM CDT Are special requirements needed? (all products are leukoreduced)->No Date required:-20191203 LRRBC # of [id number] Reasons:-Intra-op transfusion} us Amanda Jefferson MD BLOOD BANK PRODUCT ORDERABLE S Final Result Performing Organization Address [facility]/ZIP Co de Phone Number [facility] [address] [place] [address] * Check Sample (12/03/2019 5:41 AM CDT) ABO Rh O Positive [facility] HCLL OTHER 12/03/2019 5:41 AM CDT 12/03/2019 7:18 AM CDT us Bennett Saleh MD LAB BLOOD ORDERABLES Final Re sult Performing Organization Address [facility] Co de Phone Number [facility] [address] [place] [address] * eGFR (12/03/2019 5:41 AM CDT) eGFR 93 mL/min/1.7 3 m2 [facility] Comment: Interpretive Data Reference Interval Normal ?>/= 90 mL/min/1.73m2 Mildly decreased* ? 60 - 89 mL/min/1.73m2 Mildly to moderately decreased ?45 - 59 mL/min/1.73m2 Moderately to severely decreased ??30 - 44 mL/min/1.73m2 Severely decreased ?15 - 29 mL/min/1.73m2 Kidney Failure ?< 15 ??mL/min/1.73m2 *Relative to young adult level If -Somali multiply value by 1.16. Estimated glomerular filtration rate is determined by [...] 70. Current interpretive data was last reviewed 2016. Blood specimen (specimen) 12/03/2019 5:41 AM CDT 12/03/2019 5:41 AM CDT us Bennett Saleh MD LAB BLOOD ORDERABLES Final Re sult [facility] [address] Department [place] [address] * Differential, auto (12/03/2019 5:41 AM CDT) Neutrophil abs 5.8 1.7 - 6.5 K/cumm [facility] Imm gran abs 0.0 0.0 - 0.1 K/cumm [facility] Lymphocyte abs 1.4 0.8 - 3.3 K/cumm [facility] Monocyte abs 0.6 0.2 - 0.8 K/cumm [facility] Eosinophil abs 0.2 0.0 - 0.5 K/cumm [facility] Basophil abs 0.1 0.0 - 0.1 K/cumm [facility] Neutrophil pct 71.2 % [facility] Comment: Interpretive Data Percent cell count reference ranges are not reported, since discordance with absolute values may lead to misinterpretation of CBC data. Current Interpretive Data was last revised on 2017. Imm gran pct 0.2 % [facility] Comment: Interpretive Data Percent cell count reference ranges are not reported, since discordance with absolute values may lead to misinterpretation of CBC data. Current Interpretive Data was last revised on 2017. Lymphocyte pct 17.2 % [facility] Comment: Interpretive Data Percent cell count reference ranges are not reported, since discordance with absolute values may lead to misinterpretation of CBC data. Current Interpretive Data was last revised on 2017. Monocyte pct 7.7 % [facility] Comment: Interpretive Data Percent cell count reference ranges are not reported, since discordance with absolute values may lead to misinterpretation of CBC data. Current Interpretive Data was last revised on 2017. Eosinophil pct 2.7 % [facility] Comment: Interpretive Data Percent cell count reference ranges are not reported, since discordance with absolute values may lead to misinterpretation of CBC data. Current Interpretive Data was last revised on 2017. Basophil pct 1.0 % [facility] Comment: Interpretive Data Percent cell count reference ranges are not reported, since discordance with absolute values may lead to misinterpretation of CBC data. Current Interpretive Data was last revised on 2017. Blood specimen (specimen) 12/03/2019 5:41 AM CDT 12/03/2019 5:41 AM CDT Bennett Saleh MD LAB BLOOD ORDERABLES Final Re sult [facility] [address] Department of Laboratories [place], [place] [id number] * 25-Hydroxyvitamin D2 and D3, serum (12/03/2019 5:41 AM CDT) 25-OH Vit D, D2 fraction <4.0 ng/mL [facility] 25-OH Vit D, D3 fraction 33 ng/mL [facility] 25-OH Vit D 33 ng/mL [facility] Comment: REFERENCE VALUE 25-HYDROXY D TOTAL (D2+D3) Optimum levels in the healthy population are 20-50, patients with bone disease may benefit from higher levels within this range. ADDITIONAL INFORMATION This test was developed and its performance characteristics determined by [facility] in a manner consistent with CLIA requirements. This test has not been cleared or approved by the U.S. Food and Drug Administration. Test Performed by: [facility] [address] [place] [address] Mechanical Equipment Test Engineer: Abhijit Berg M.D. Ph.D.; CLIA# [id number] Blood specimen (specimen) 12/03/2019 5:41 AM CDT 12/03/2019 5:41 AM CDT us Bennett Saleh MD LAB BLOOD ORDERABLES Final Re sult [facility] [address] Department [place] [address] * (ABNORMAL) Comprehensive metabolic panel (12/03/2019 5:41 AM CDT) Sodium 139 135 - 145 mmol/L [facility] Potassium, pl 3.7 3.3 - 4.9 mmol/L [facility] Chloride 94(L) 97 - 110 mmol/L [facility] CO2 33(H) 22 - 32 mmol/L [facility] Anion gap 12 2 - 15 mmol/L [facility] BUN 21 8 - 25 mg/dL [facility] Creatinine 0.67 0.60 - 1.10 mg/dL [facility] Glucose 75 70 - 199 mg/dL [facility] Comment: Interpretive Data Fasting glucose >/= [...] interpretive data was last revised 2017. Calcium 9.3 8.5 - 10.3 mg/dL [facility] Bilirubin, total 0.2 0.1 - 1.2 mg/dL [facility] Protein, pl 8.1 6.5 - 8.5 g/dL [facility] Albumin 3.0(L) 3.5 - 5.0 g/dL [facility] Alk phos 31(L) 40 - 130 Units/L [facility] ALT 12 7 - 45 Units/L [facility] AST 23 10 - 45 Units/L [facility] Blood specimen (specimen) 12/03/2019 5:41 AM CDT 12/03/2019 5:41 AM CDT us Bennett Saleh MD LAB BLOOD ORDERABLES Final Re sult [facility] [address] Department of Laboratories [place] [id number] * (ABNORMAL) CBC with auto differential (12/03/2019 5:41 AM CDT) WBC 8.2 3.8 - 9.9 K/cumm [facility] Hgb 9.3(L) 11.9 - 15.5 g/dL [facility] Hct 29.0(L) 35.6 - 45.5 % [facility] Plt 408(H) 150 - 400 K/cumm [facility] MPV 9.1 9.1 - 12.3 fL [facility] RBC 3.17(L) 3.90 - 5.20 M/cumm [facility] MCV 91.5 81.3 - 96.4 fL [facility] MCH 29.3 27.1 - 33.3 pg [facility] MCHC 32.1(L) 32.3 - 35.7 g/dL [facility] RDW CV 17.9(H) 11.1 - 14.9 % [facility] RDW SD 60.4(H) 35.7 - 48.1 fL [facility] NRBC abs 0.00 0.00 - 0.01 K/cumm [facility] Blood specimen (specimen) 12/03/2019 5:41 AM CDT 12/03/2019 5:41 AM CDT us Bennett Saleh MD LAB BLOOD ORDERABLES Final Re sult Performing Organization Address [facility] Co de Phone Number [facility] [address] [place] [address] * eGFR (12/02/2019 7:19 AM CDT) [facility] eGFR 102 mL/min/1.7 3 m2 [facility] Comment: Interpretive Data Reference Interval Normal ?>/= 90 mL/min/1.73m2 Mildly decreased* ? 60 - 89 mL/min/1.73m2 Mildly to moderately decreased ?45 - 59 mL/min/1.73m2 Moderately to severely decreased ??30 - 44 mL/min/1.73m2 Severely decreased ?15 - 29 mL/min/1.73m2 Kidney Failure ?< 15 ??mL/min/1.73m2 *Relative to young adult level If -Somali multiply value by 1.16. Estimated glomerular filtration rate is determined by [...] 70. Current interpretive data was last reviewed 2016. Blood specimen (specimen) 12/02/2019 7:19 AM CDT 12/02/2019 7:19 AM CDT us Bennett Saleh MD LAB BLOOD ORDERABLES Final Re sult Performing Organization Address [facility] Co de Phone Number [facility] [address] Department [employer] [place], [place] [phone] * (ABNORMAL) Comprehensive metabolic panel (12/02/2019 7:19 AM CDT) Sodium 140 135 - 145 mmol/L [facility] Potassium, pl 3.6 3.3 - 4.9 mmol/L [facility] Chloride 95(L) 97 - 110 mmol/L [facility] CO2 32 22 - 32 mmol/L [facility] Anion gap 13 2 - 15 mmol/L [facility] BUN 27(H) 8 - 25 mg/dL [facility] Creatinine 0.50(L) 0.60 - 1.10 mg/dL [facility] Glucose 120 70 - 199 mg/dL [facility] Comment: Interpretive Data Fasting glucose >/= [...] 2017. Calcium 9.1 8.5 - 10.3 mg/dL [facility] Bilirubin, total 0.2 0.1 - 1.2 mg/dL [facility] Protein, pl 7.7 6.5 - 8.5 g/dL [facility] Albumin 3.2(L) 3.5 - 5.0 g/dL [facility] Alk phos 32(L) 40 - 130 Units/L [facility] ALT 13 7 - 45 Units/L [facility] AST 20 10 - 45 Units/L [facility] Blood specimen (specimen) 12/02/2019 7:19 AM CDT 12/02/2019 7:19 AM CDT us Bennett Saleh MD LAB BLOOD ORDERABLES Final Re sult [facility] [address] Department [place] [address] * (ABNORMAL) CRP (acute phase) (12/02/2019 7:19 AM CDT) Pathologist [facility] CRP 15.3(H) <=10.0 mg/L [facility] Blood specimen (specimen) 12/02/2019 7:19 AM CDT 12/02/2019 7:19 AM CDT Vaishali Clemente DO LAB BLOOD ORDERABLES Final Result [facility] [address] Department [place] [address] * Differential, auto (12/02/2019 7:11 AM CDT) Pathologist [facility] Neutrophil abs 4.2 1.7 - 6.5 K/cumm [facility] Imm gran abs 0.0 0.0 - 0.1 K/cumm [facility] Lymphocyte abs 1.5 0.8 - 3.3 K/cumm [facility] Monocyte abs 0.6 0.2 - 0.8 K/cumm [facility] Eosinophil abs 0.2 0.0 - 0.5 K/cumm [facility] Basophil abs 0.1 0.0 - 0.1 K/cumm [facility] Neutrophil pct 64.2 % [facility] Comment: Interpretive Data Percent cell count reference ranges are not reported, since discordance with absolute values may lead to misinterpretation of CBC data. Current Interpretive Data was last revised on 2017. Imm gran pct 0.2 % [facility] Comment: Interpretive Data Percent cell count reference ranges are not reported, since discordance with absolute values may lead to misinterpretation of CBC data. Current Interpretive Data was last revised on 2017. Lymphocyte pct 22.9 % [facility] Comment: Interpretive Data Percent cell count reference ranges are not reported, since discordance with absolute values may lead to misinterpretation of CBC data. Current Interpretive Data was last revised on 2017. Monocyte pct 8.4 % [facility] Comment: Interpretive Data Percent cell count reference ranges are not reported, since discordance with absolute values may lead to misinterpretation of CBC data. Current Interpretive Data was last revised on 2017. Eosinophil pct 2.9 % [facility] Comment: Interpretive Data Percent cell count reference ranges are not reported, since discordance with absolute values may lead to misinterpretation of CBC data. Current Interpretive Data was last revised on 2017. Basophil pct 1.4 % [facility] Comment: Interpretive Data Percent cell count reference ranges are not reported, since discordance with absolute values may lead to misinterpretation of CBC data. Current Interpretive Data was last revised on 2017. Blood specimen (specimen) 12/02/2019 7:11 AM CDT 12/02/2019 7:11 AM CDT Bennett Saleh MD LAB BLOOD ORDERABLES Final Re sult [facility] [address] Department [place] [address] * (ABNORMAL) CBC with auto differential (12/02/2019 7:11 AM CDT) WBC 6.5 3.8 - 9.9 K/cumm [facility] Hgb 9.5(L) 11.9 - 15.5 g/dL [facility] Hct 30.9(L) 35.6 - 45.5 % [facility] Plt 404(H) 150 - 400 K/cumm [facility] MPV 9.5 9.1 - 12.3 fL [facility] RBC 3.24(L) 3.90 - 5.20 M/cumm [facility] MCV 95.4 81.3 - 96.4 fL [facility] MCH 29.3 27.1 - 33.3 pg [facility] MCHC 30.7(L) 32.3 - 35.7 g/dL [facility] RDW CV 18.0(H) 11.1 - 14.9 % [facility] RDW SD 62.8(H) 35.7 - 48.1 fL [facility] NRBC abs 0.00 0.00 - 0.01 K/cumm [facility] Blood specimen (specimen) 12/02/2019 7:11 AM CDT 12/02/2019 7:11 AM CDT us Bennett Saleh MD LAB BLOOD ORDERABLES Final Re sult Performing Organization Address [facility]/ZIP Co de Phone Number [facility] [address] Department [place] [employer] [place] [address] * (ABNORMAL) Erythrocyte sedimentation rate (12/02/2019 7:11 AM CDT) Pathologist [facility] Erythrocyte sedimentation rate 129(H) 1 - 30 mm/hr [facility] Blood specimen (specimen) 12/02/2019 7:11 AM CDT 12/02/2019 7:11 AM CDT Vaishali Clemente DO LAB BLOOD ORDERABLES Final Result Performing Organization Address [facility] Co de Phone Number [facility] [address] Department [place] [place] [address] * Type and screen (12/01/2019 6:34 PM CDT) Pathologist [facility] Veronica, indirect Negative [facility] ABO Rh O Positive [facility] Blood specimen (specimen) 12/01/2019 6:34 PM CDT 12/01/2019 6:35 PM CDT Narrative [facility] - 12/01/2019 7:12 PM CDT Has the patient had Daratumumab or Isatuximab in the past 6 months?->Unknown us Arley Peña MD LAB BLOOD BANK TEST ORDERABLES Final Result Performing Organization Address [facility]/ZIP Co de Phone Number [facility] [address] [place] [place] [address] * (ABNORMAL) COVID-19 Coronavirus RNA Nasopharyngeal (11/30/2019 3:18 AM CDT) Pathologist [facility] COVID-19 RNA Detected( A) [facility] Comment: Interpretive Data Testing performed at [facility]. The 2019-Novel Coronavirus Assay (COVID-19) Real Time RT-PCR assay is for in vitro diagnostic use under FDA emergency use authorization only. A negative RT-PCR result does not preclude infection with COVID-19 and should not be used as the sole basis for treatment or other patient management decisions. Additional sample types have been validated according to CLIA regulations. ?? Current Interpretive Data was last revised on 2019. Testing performed by: [facility], [address] [place]., [address] Nasopharyngeal 11/30/2019 3: 18 AM CDT 11/30/2019 8:02 AM CDT Narrative [facility] - 11/30/2019 5:16 PM CDT Is the patient experiencing any symptoms consistent with COVID (eg. Fever, cough, shortness of breath)?->No What is the reason for testing?->Screening prior to scheduled (>12 hr) surgery or procedure Arley Peña MD LAB MICROBIOLOGY - [facility]AL [facility] Final Result [facility] [address] Department [place] [address] * COVID-19 Coronavirus RNA Nasopharyngeal (11/28/2019 4:00 PM CDT) COVID-19 RNA Not Detected [facility] Comment: Interpretive Data Testing performed at [facility]. The 2018-Novel Coronavirus Assay (COVID-19) Real Time RT-PCR assay is for in vitro diagnostic use under FDA emergency use authorization only. A negative RT-PCR result does not preclude infection with COVID-19 and should not be used as the sole basis for treatment or other patient management decisions. Additional sample types have been validated according to CLIA regulations. ?? Current Interpretive Data was last revised on 2019. Testing performed by: [facility], [address] [place] [address], [place] [address] Nasopharyngeal 11/28/2019 4: 00 PM CDT 11/28/2019 7:42 PM CDT Narrative [facility] - 11/29/2019 2:22 AM CDT Needs negative test to remove from isolation Is the patient experiencing any symptoms consistent with COVID (eg. Fever, cough, shortness of breath)?->No What is the reason for testing?->Discharge planning/removal of isolation Bennett Saleh MD LAB MICROBIOLOGY - GENERAL OR DERABLES Final Result Performing Organization Address [facility] Co de Phone Number [facility] [address] Department [place] [address] * (ABNORMAL) Blood gas, arterial (11/26/2019 11:15 AM CDT) pH, Art 7.42 7.35 - 7.45 [facility] PCO2, Arterial 44 35 - 45 mmHg [facility] PO2, Arterial 74(L) 83 - 108 mmHg [facility] HCO3 Art (Calculated) 28 20 - 30 mmol/L [facility] BE, art 3 mmol/L [facility] Comment: Interpretive Data No Reference Range Established Current Interpretive Data was last revised on 2017 O2 Sat Art (Calculated) 95 94 - 98 % [facility] Blood specimen (specimen) 11/26/2019 11:15 AM CDT 11/26/2019 11:22 AM CDT Bennett Saleh MD LAB BLOOD ORDERABLES Final Re sult Performing Organization Address [facility] Co de Phone Number [facility] [address] Department [place] [address] * eGFR (11/25/2019 4:49 AM CDT) eGFR 93 mL/min/1.7 3 m2 [facility] Comment: Interpretive Data Reference Interval Normal ?>/= 90 mL/min/1.73m2 Mildly decreased* ? 60 - 89 mL/min/1.73m2 Mildly to moderately decreased ?45 - 59 mL/min/1.73m2 Moderately to severely decreased ??30 - 44 mL/min/1.73m2 Severely decreased ?15 - 29 mL/min/1.73m2 Kidney Failure ?< 15 ??mL/min/1.73m2 *Relative to young adult level If -Somali multiply value by 1.16. Estimated glomerular filtration rate is determined by [...] 70. Current interpretive data was last reviewed 2016. Blood specimen (specimen) 11/25/2019 4:49 AM CDT 11/25/2019 4:49 AM CDT us Vaishali Clemente DO LAB BLOOD ORDERABLES Final Result [facility] [address] Department [place] [address] * Differential, auto (11/25/2019 4:49 AM CDT) Neutrophil abs 5.9 1.7 - 6.5 K/cumm [facility] Imm gran abs 0.0 0.0 - 0.1 K/cumm [facility] Lymphocyte abs 1.7 0.8 - 3.3 K/cumm [facility] Monocyte abs 0.5 0.2 - 0.8 K/cumm [facility] Eosinophil abs 0.2 0.0 - 0.5 K/cumm [facility] Basophil abs 0.1 0.0 - 0.1 K/cumm [facility] Neutrophil pct 70.1 % [facility] Comment: Interpretive Data Percent cell count reference ranges are not reported, since discordance with absolute values may lead to misinterpretation of CBC data. Current Interpretive Data was last revised on 2017. Imm gran pct 0.2 % [facility] Comment: Interpretive Data Percent cell count reference ranges are not reported, since discordance with absolute values may lead to misinterpretation of CBC data. Current Interpretive Data was last revised on 2017. Lymphocyte pct 20.4 % [facility] Comment: Interpretive Data Percent cell count reference ranges are not reported, since discordance with absolute values may lead to misinterpretation of CBC data. Current Interpretive Data was last revised on 2017. Monocyte pct 6.4 % [facility] Comment: Interpretive Data Percent cell count reference ranges are not reported, since discordance with absolute values may lead to misinterpretation of CBC data. Current Interpretive Data was last revised on 2017. Eosinophil pct 1.8 % [facility] Comment: Interpretive Data Percent cell count reference ranges are not reported, since discordance with absolute values may lead to misinterpretation of CBC data. Current Interpretive Data was last revised on 2017. Basophil pct 1.1 % [facility] Comment: Interpretive Data Percent cell count reference ranges are not reported, since discordance with absolute values may lead to misinterpretation of CBC data. Current Interpretive Data was last revised on 2017. Blood specimen (specimen) 11/25/2019 4:49 AM CDT 11/25/2019 4:49 AM CDT Vaishali Clemente DO LAB BLOOD ORDERABLES Final Result [facility] [address] Department [place] [address] * (ABNORMAL) Erythrocyte sedimentation rate (11/25/2019 4:49 AM CDT) Erythrocyte sedimentation rate 101(H) 1 - 30 mm/hr [facility] Blood specimen (specimen) 11/25/2019 4:49 AM CDT 11/25/2019 4:49 AM CDT us Vaishali Clemente DO LAB BLOOD ORDERABLES Final Result Performing Organization Address City/[facility]/ZIP Co de Phone Number [facility] [address] [place] [address] * (ABNORMAL) CRP (acute phase) (11/25/2019 4:49 AM CDT) Pathologist [facility] CRP 27.7(H) <=10.0 mg/L [facility] Blood specimen (specimen) 11/25/2019 4:49 AM CDT 11/25/2019 4:49 AM CDT Vaishali Clemente LAB BLOOD ORDERABLES Final Result Performing Organization Address [facility] de Phone Number [facility] [address] Department [place] [place] [address] * (ABNORMAL) Comprehensive metabolic panel (11/25/2019 4:49 AM CDT) [facility] Sodium 140 135 - 145 mmol/L [facility] Potassium, pl 3.4 3.3 - 4.9 mmol/L [facility] Chloride 95(L) 97 - 110 mmol/L [facility] CO2 31 22 - 32 mmol/L [facility] Anion gap 14 2 - 15 mmol/L [facility] BUN 32(H) 8 - 25 mg/dL [facility] Creatinine 0.66 0.60 - 1.10 mg/dL [facility] Glucose 171 70 - 199 mg/dL [facility] Comment: Interpretive Data Fasting glucose >/= [...] 2017. Calcium 8.8 8.5 - 10.3 mg/dL [facility] Bilirubin, total 0.2 0.1 - 1.2 mg/dL [facility] Protein, pl 7.7 6.5 - 8.5 g/dL [facility] Albumin 3.2(L) 3.5 - 5.0 g/dL [facility] Alk phos 38(L) 40 - 130 Units/L [facility] ALT 14 7 - 45 Units/L [facility] AST 24 10 - 45 Units/L [facility] Comment:Slightly Hemolyzed S pecimen Blood specimen (specimen) 11/25/2019 4:49 AM CDT 11/25/2019 4:49 AM CDT us Vaishali Clemente DO LAB BLOOD ORDERABLES Final Result [facility] [address] Department [place] [address] * (ABNORMAL) CBC with auto differential (11/25/2019 4:49 AM CDT) WBC 8.5 3.8 - 9.9 K/cumm [facility] Hgb 8.1(L) 11.9 - 15.5 g/dL [facility] Hct 25.4(L) 35.6 - 45.5 % [facility] Plt 461(H) 150 - 400 K/cumm [facility] MPV 9.3 9.1 - 12.3 fL [facility] RBC 2.79(L) 3.90 - 5.20 M/cumm [facility] MCV 91.0 81.3 - 96.4 fL [facility] MCH 29.0 27.1 - 33.3 pg [facility] MCHC 31.9(L) 32.3 - 35.7 g/dL [facility] RDW CV 16.9(H) 11.1 - 14.9 % [facility] RDW SD 54.4(H) 35.7 - 48.1 fL [facility] NRBC abs 0.00 0.00 - 0.01 K/cumm [facility] Blood specimen (specimen) 11/25/2019 4:49 AM CDT 11/25/2019 4:49 AM CDT Vaishali Clemente DO LAB BLOOD ORDERABLES Final Result Performing Organization Address [facility]/ZIP Co de Phone Number [facility] [address] Department [place] [address] * (ABNORMAL) Iron profile w/ IBC (11/22/2019 5:52 AM CDT) Iron 40 35 - 145 mcg/dL [facility] TIBC 127(L) 250 - 400 mcg/dL [facility] Transferrin saturation 32 20 - 50 % [facility] Blood specimen (specimen) 11/22/2019 5:52 AM CDT 11/22/2019 5:52 AM CDT Bennett Saleh MD LAB BLOOD ORDERABLES Final Re sult Performing Organization Address City/[facility]/ZIP Co de Phone Number [facility] [address] Department [place] [address] * XR Chest 1 Vw (11/22/2019 5:17 AM CDT) Anatomical Region Laterality Modality Body, Chest N/A Computed Radiogr aphy 11/22/2019 9:03 AM CDT Impressions 11/22/2019 9:06 AM CDT 1. ??Faint increased linear opacities in the left upper lung. Infectious infiltrate not excluded. 2. ??No focal consolidation. 3. ??Right paratracheal calcification, likely granuloma. Electronically signed by: Farzad Karimi M.D. Narrative 11/22/2019 9:06 AM CDT XR CHEST 1 VIEW: 11/22/2019 2:40 AM CLINICAL INDICATION: Sepsis. COMPARISON: None. FINDINGS: Left PICC terminates in the superior vena cava. ??Cardiomediastinal silhouette is within normal limits. ??Trachea is midline. ??Mild calcification along the aortic arch. ??Right paratracheal calcification measures 2.6 x 2.9 cm. ??Faint increased linear opacities in the left upper lung. ??No focal consolidation, large pleural effusion or pneumothorax. Procedure Note Farzad Karimi MD - 11/22/2019 XR CHEST 1 VIEW: 11/22/2019 2:40 AM CLINICAL INDICATION: Sepsis. COMPARISON: None. FINDINGS: Left PICC terminates in the superior vena cava. Cardiomediastinal silhouette is within normal limits. Trachea is midline. Mild calcification along the aortic arch. Right paratracheal calcification measures 2.6 x 2.9 cm. Faint increased linear opacities in the left upper lung. No focal consolidation, large pleural effusion or pneumothorax. IMPRESSION: 1. Faint increased linear opacities in the left upper lung. Infectious infiltrate not excluded. 2. No focal consolidation. 3. Right paratracheal calcification, likely granuloma. Electronically signed by: Farzad Karimi M.D. us Bennett Saleh MD IMG XR PROCEDURES Final Resul t * eGFR (11/22/2019 3:38 AM CDT) eGFR 94 mL/min/1.7 3 m2 [facility] Comment: Interpretive Data Reference Interval Normal ?>/= 90 mL/min/1.73m2 Mildly decreased* ? 60 - 89 mL/min/1.73m2 Mildly to moderately decreased ?45 - 59 mL/min/1.73m2 Moderately to severely decreased ??30 - 44 mL/min/1.73m2 Severely decreased ?15 - 29 mL/min/1.73m2 Kidney Failure ?< 15 ??mL/min/1.73m2 *Relative to young adult level If -Somali multiply value by 1.16. Estimated glomerular filtration rate is determined by [...] 70. Current interpretive data was last reviewed 2016. Blood specimen (specimen) 11/22/2019 3:38 AM CDT 11/22/2019 3:38 AM CDT Bennett Saleh MD LAB BLOOD ORDERABLES Final Re sult Performing Organization Address [facility] Co de Phone Number [facility] [address] Department [employer] [place], [place] [id number] * (ABNORMAL) TSH (11/22/2019 3:38 AM CDT) Thyroid Stimulating Hormone 13.03(H) 0.30 - 4.20 mcIUnit/mL [facility] Blood specimen (specimen) 11/22/2019 3:38 AM CDT 11/22/2019 3:38 AM CDT Bennett Saleh MD LAB BLOOD ORDERABLES Final Re sult Performing Organization Address [facility] Co de Phone Number [facility] [address] [employer] [place], [place] [phone] * Magnesium (11/22/2019 3:38 AM CDT) Magnesium 1.8 1.4 - 2.5 mg/dL [facility] Blood specimen (specimen) 11/22/2019 3:38 AM CDT 11/22/2019 3:38 AM CDT Bennett Saleh MD LAB BLOOD ORDERABLES Final Re sult Performing Organization Address [facility] Co de Phone Number [facility] [address] [facility] [employer] [place], [place] [phone] * (ABNORMAL) Comprehensive metabolic panel (11/22/2019 3:38 AM CDT) Sodium 131(L) 135 - 145 mmol/L [facility] Potassium, pl 4.1 3.3 - 4.9 mmol/L [facility] Comment:Moderately Hemolyzed Specimen Chloride 90(L) 97 - 110 mmol/L [facility] CO2 30 22 - 32 mmol/L [facility] Anion gap 11 2 - 15 mmol/L [facility] BUN 30(H) 8 - 25 mg/dL [facility] Creatinine 0.65 0.60 - 1.10 mg/dL [facility] Glucose 105 70 - 199 mg/dL [facility] Comment: Interpretive Data Fasting glucose >/= [...] interpretive data was last revised 2017. Calcium 8.7 8.5 - 10.3 mg/dL [facility] Bilirubin, total 0.2 0.1 - 1.2 mg/dL [facility] Protein, pl 7.6 6.5 - 8.5 g/dL [facility] Albumin 2.6(L) 3.5 - 5.0 g/dL [facility] Alk phos 39(L) 40 - 130 Units/L [facility] ALT 18 7 - 45 Units/L [facility] Comment:Moderately Hemolyzed Specimen AST 49(H) 10 - 45 Units/L [facility] Comment:Moderately Hemolyzed Specimen Blood specimen (specimen) 11/22/2019 3:38 AM CDT 11/22/2019 3:38 AM CDT Bennett Saleh MD LAB BLOOD ORDERABLES Final Re sult [facility] [address] Department [place] [address] * Differential, auto (11/22/2019 3:37 AM CDT) Neutrophil abs 6.1 1.7 - 6.5 K/cumm [facility] Imm gran abs 0.0 0.0 - 0.1 K/cumm [facility] Lymphocyte abs 1.7 0.8 - 3.3 K/cumm [facility] Monocyte abs 0.5 0.2 - 0.8 K/cumm [facility] Eosinophil abs 0.2 0.0 - 0.5 K/cumm [facility] Basophil abs 0.1 0.0 - 0.1 K/cumm [facility] Neutrophil pct 70.9 % [facility] Comment: Interpretive Data Percent cell count reference ranges are not reported, since discordance with absolute values may lead to misinterpretation of CBC data. Current Interpretive Data was last revised on 2017. Imm gran pct 0.5 % [facility] Comment: Interpretive Data Percent cell count reference ranges are not reported, since discordance with absolute values may lead to misinterpretation of CBC data. Current Interpretive Data was last revised on 2017. Lymphocyte pct 19.5 % [facility] Comment: Interpretive Data Percent cell count reference ranges are not reported, since discordance with absolute values may lead to misinterpretation of CBC data. Current Interpretive Data was last revised on 2017. Monocyte pct 6.1 % [facility] Comment: Interpretive Data Percent cell count reference ranges are not reported, since discordance with absolute values may lead to misinterpretation of CBC data. Current Interpretive Data was last revised on 2017. Eosinophil pct 2.1 % [facility] Comment: Interpretive Data Percent cell count reference ranges are not reported, since discordance with absolute values may lead to misinterpretation of CBC data. Current Interpretive Data was last revised on 2017. Basophil pct 0.9 % [facility] Comment: Interpretive Data Percent cell count reference ranges are not reported, since discordance with absolute values may lead to misinterpretation of CBC data. Current Interpretive Data was last revised on 2017. Blood specimen (specimen) 11/22/2019 3:37 AM CDT 11/22/2019 3:37 AM CDT Bennett Saleh MD LAB BLOOD ORDERABLES [facility] [address] Department [place] [address] * (ABNORMAL) CBC with auto differential (11/22/2019 3:37 AM CDT) WBC 8.6 3.8 - 9.9 K/cumm [facility] Hgb 8.0(L) 11.9 - 15.5 g/dL [facility] Hct 25.6(L) 35.6 - 45.5 % [facility] Plt 478(H) 150 - 400 K/cumm [facility] MPV 9.0(L) 9.1 - 12.3 fL [facility] RBC 2.75(L) 3.90 - 5.20 M/cumm [facility] MCV 93.1 81.3 - 96.4 fL [facility] MCH 29.1 27.1 - 33.3 pg [facility] MCHC 31.3(L) 32.3 - 35.7 g/dL [facility] RDW CV 16.2(H) 11.1 - 14.9 % [facility] RDW SD 53.8(H) 35.7 - 48.1 fL [facility] NRBC abs 0.00 0.00 - 0.01 K/cumm [facility] Blood specimen (specimen) 11/22/2019 3:37 AM CDT 11/22/2019 3:37 AM CDT Bennett Saleh MD LAB BLOOD ORDERABLES Final Re [facility] [address] Department [place] [address] documented in this encounter Visit Diagnoses Not on filedocumented in this encounter Administered Medications Inactive Administered Medications - up to 3 most recent administrations Medication Order MAR Action Action Date Dose Rate Site sodium chloride 0.9 % irrigation As needed, Starting on Mon12/03/19 at 1530, Intra-Op Given 12/03/2019 3:30 PM CDT 1,000 mL documented in this encounter Active and Recently Administered Medications Orders Medications Ordered That Jesus ht Not Have Been Administered Count Last Ordered Date First Ordered Date sodium chloride 0.9% IVPB 0-250 mL 1 2019 Nursing Count Last Ordered Date First Orde red Date VERIFY INFORMED CONSENT 1 12/03/2019 documented in this encounter Additional Health Concerns 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 07/08/2019 10/28/2020 5:00 AM C DT COVID19 11/09/2019 11/30/2019 12/26/2019 3:05 AM CDT documented as of this encounter Care Teams Filter Operator Relationship Specialty Start Date End Date Zeke Puente MD [address] [place] [id number] PCP - General 12/02/18 Damon Swanson DO [address] [place] [id number] Medical Oncologist/Commercial Project Manager Hematology and Oncology 10/25/17 Karl Smith Jr., MD [address] [place] [id number] Surgeon General Surgery 11/07/19 documented as of this encounter
--- OUTSIDE RECORDS SUMMARY | 2024-02-26 21:37 | XMS_ITS | Encounter Summary ---
Author Organization [facility] Healthcare Address [address] [place] [address] Care Team Providers Care Geothermal Hvac Technician Name Role Phone Damon Swanson DO Unavailable [phone] Zeke Puente MD Primary Care Provider [phone] Sarah Baldwin MD, Karl N. 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 Gender Identity Not on file Sexual Orientation Not on file documented as of this encounter Medications at Time of Discharge cefTRIAXone (ROCEPHIN)Indicat ions:Blood Stream/Endovascul ar Infection Infuse 20 mL (2,000 mg total) into a venous catheter daily for 27 days 540 mL 11/21/2019 0 metroNIDAZOLE (FLAGYL) 500 mg tabletIndications :Pneumonia, Aspiration Take 1 tablet (500 mg total) by mouth 3 (three) times a day for 28 days 84 tablet 11/20/2019 0 amLODIPine (NORVASC) 10 mg tablet 0 08/09/2017 [...] 1 tablet (50 mcg total) by mouth superintendent sales before breakfast 30 tablet 1 11/21/2019 1 [...] Name Priority Date/Time Associated Diagnosis Comments XR CHEST 1 VIEW IP Routine 11/22/2019 5:17 AM CDT documented in this encounter Results * XR Chest 1 Vw (11/22/2019 5:17 [...] granuloma. Electronically signed by: Farzad Karimi M.D. 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 07/08/2019 10/28/2020 5:00 AM C DT COVID19 11/09/2019 11/30/2019 12/26/2019 3:05 AM CDT documented as of this encounter Care Teams Geothermal Hvac Technician Relationship Specialty Start Date End Date Zeke Puente MD [address] [place] [id number] PCP - General 12/02/18 Damon Swanson DO [address] [place] [id number] Medical Oncologist/Customs And Immigration Officer Hematology and Oncology 10/25/17 Karl Smith Jr., MD [address] [place] [id number] Surgeon General Surgery 11/07/19 documented as of this encounter
--- OUTSIDE RECORDS SUMMARY | 2024-02-26 21:37 | XMS_ITS | Encounter Summary ---
Author Organization [facility] Healthcare Address [address] [place] [address] Care Team Providers Care [employer] Wireman Name Role Phone Kiki Damon ValeroTesha DO Unavailable [phone] Zeke Puente MD Primary Care Provider [phone] Sarah Baldwin MD, Karl N. Unavailable [phone] Reason for Visit * Reason Comments Leg Pain Encounter Details Date Type Department Care Team (Late st Contact Info) Description 06/19/2020 5:00 PM CDT - 06/19/2020 7:20 PM CDT Surgery [facility] Operating Room [address] [place] [id number] Arley Peña MD [address] [place] [address] AMPUTATION ABOVE KNEE-LEFT Surgery Details Date/Time Status Location OR Service Patient Class Case Class Case Type Trauma Case? 06/19/2020 5:00 PM Posted [facility] OPERATING ROOM OR General Surgery Inpatient Urgent - 24 hours Panel 1 Procedure LRB Anes Op Region Wound Class Comments AMPUTATION ABOVE KNEE-LEFT Left General Thigh Cla ss I - Clean 13:00 SA NEEDED Surgeon Surgeon Role Service Panel Arley Peña [...] declined 06/17/2020 How often do you attend restorationist or muslim serv ices? Patient declined 06/17/2020 Do you belong to any clubs o r organizations such as restorationist groups, unions, fraternal or athletic groups, or [...] on file Legal Sex Female 12:30 PM LOAN COORDINATOR Gender Identity Not on file Sexual Orientation Not on file documented as of this encounter Last Filed Vital Signs Vital Sign Reading Time Taken Comments Blood Pressure 133/82 06/19/2020 5:05 PM CDT Pulse 66 06/19/2020 5:25 PM CDT Temperature 36.7 ??C (98 ??F) 06/19/2020 4:45 PM CDT Respiratory Rate 13 06/19/2020 5:25 PM CDT Oxygen Saturation 94% 06/19/2020 5:25 PM CDT Inhaled Oxygen Concentration - - Weight 74.7 kg (164 lb 11.2 oz) 06/16/2020 9:09 PM CDT Height - - Body Mass Index 70.68 06/23/2020 1:05 PM CDT documented in this encounter Discharge Summaries * Arley Peña MD - 06/24/2020 12:00 AM CDT This is a 65-year-old black female who had recovered from COVID last year who 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 Subsequently, she was doing [...] asked the nursing staff [facility] for postop care on the left AK stump. Job ID/VF Job ID: [id number] documented in this encounter Medications at Time of Discharge amLODIPine (NORVASC) 10 mg tablet Take 1 tablet (10 mg total) by mouth daily atorvastatin (LIPITOR) 40 mg tablet Take 1 tablet (40 mg total) by mouth daily levothyroxine (SYNTHROID) 100 mcg tablet Take 1 tablet (100 mcg total) by mouth therapeutic recreation director before breakfast 30 tablet 1 06/25/2020 gabapentin [...] 1 tablet (100 mcg total) by mouth therapeutic recreation director before breakfast 30 tablet 1 06/25/2020 oxyCODONE [...] Disposition Code Departure Means Destination Discharge to [facility] documented in this encounter Progress Notes * [...] Continue with current plan Recommendation/Plan OT Recommendation Half-Way Facility Education: Patient has been educated on [...] 06/24/20 Goal Start Date End Date OT [facility] - [facility] 1 06/24/20 -- Goal Details: Pt will complete toileting tasks and toilet transfer moderate assist Goal Start Date End Date OT [facility] - [facility] 2 06/24/20 -- Goal Details: Pt will complete grooming tasks at sink moderate assist Goal Start Date End Date OT [facility] 3 06/24/20 -- Goal Details: Pt will complete UB dressing minimal assist Goal Start Date End Date OT [facility] 4 06/24/20 -- Goal Details: Pt will complete object retrieval from varying heights modified independent to simulate ADLs and IADLs * Alana Montano - 06/26/2020 10:20 AM CDT INPATIENT MUSIC THERAPY TREATMENT Time In: 0920 Time Out: 1020 TYPE OF SESSION/NOTE: Progress/Treatment [...] [facility] Patient engaged in conversation about holiday traditions and requested nichole music. 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 / enjoys singing Patient's Musical Preferences: Decade(s): 1970s Genres: easy listening, popular, Nichole music / no jazz Artists/Groups: none stated Psychosocial History: Family: one daughter, three sons, several grandchildren and great-grandchildren (ages 11 months - 11 years) 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) Leisure: watching television, coloring Samaritan/Spiritual: Nondenominational [employer] OBJECTIVE: Observed Behavior State: easy to [...] / therapeutic singing) Song 4: Deck [place] (therapeutic singing / song discussion) Song 5: August [place] (therapeutic singing / song discussion) Song 6: [place] (therapeutic singing / song discussion) Song 7: [...] anxiety PLAN OF CARE: Multi-Disciplinary Problems (from [place] Music Therapy) Active Problems Problem: [facility] Start Date: 06/24/20 Goal Start Date End Date [facility] 1 06/24/20 -- Goal Details: Patient will increase pulmonary function by completing various exercises with SPO2 at=/> 92% or by increasing SPO2 by =/>1% in at least one music therapy session prior to discharge Goal Start Date End Date [facility] - [facility] 2 06/24/20 -- Goal Details: Patient will [...] subcutaneous Daily-2100 Harlan Salamanca MD 40 mg at06/25/202234 ??? [...] KASIE Harlan Salamanca MD 10 mL at 06/26/20 0612 ??? [...] 0538 06/22/20 0907 06/22/20 0352 06/21/20 2221 06/21/202220 SODIUM mmol/L -- -- -- -- 137 [...] Moderate malnutrition (CMS/HCC) PVD (peripheral vascular disease) ([facility]) Anemia Hypothyroidism Hyperlipidemia Dementia (CMS/HCC) Diabetes mellitus [...] Soft Diet effective now Question Answer Comment ([facility]) Diet type GI Diets GI: Esophageal Soft 06/23/20 1553 06/23/20 1120 Oral Nutrition Supplements Select Supplement: Glucerna Shake - [place] 3 times daily Question: Select Supplement: Answer: Glucerna Shake - [place] 06/23/20 1119 Anthropometrics Weight: 76.7 kg (169 [...] of Weight Used for Estimated Protein : Arrington Protein Needs Based on g/k.5 Total Protein [...] PT. PT completed session w/ assistance of account support specialist to maximize safety with all functional [...] this the discharge summary Recommendation/Plan PT Recommendation/Plan Half-Way Facility Treatment/Interventions Balance Training;Bed mobility;Endurance training;Equipment eval/education;Functional [...] (from Physical Therapy) Active Problems Problem: PT [facility] Start Date: 06/24/20 Goal Start Date End Date PT [facility] 1 06/24/20 -- Goal Details: Pt will roll BRENDON with minimum assist and BRENDON bedrails for trunk support. Goal Start Date End Date PT [facility] 2 06/24/20 -- Goal Details: Pt will supine<-->sit EOB with minimum to mod assist x1 + bedrail for trunk support. Goal Start Date End Date PT [facility] 3 06/24/20 -- Goal Details: Pt will sit EOB x10 minutes w/ SBA to CGA x1 w/ BRENDON UE support for safety. Goal Start Date End Date PT [facility] 4 06/24/20 -- Goal Details: Pt will perform lateral scooting (side to side) on EOB with minimum to mod assist x1 (to strengthen hips and core in preparation for transfer training via slide board or posterior/anterior scooting bed<-->WC). Goal Start Date End Date PT [facility] - [facility] 5 06/24/20 -- Goal Details: Pt will [...] PRN Harlan Salamanca MD 650 mg at 06/25/20 0254 ??? amLODIPine (NORVASC) tablet 10 mg 10 mg oral Daily Harlan Salamanca MD 10 mg at 06/25/20 0824 ??? dextrose (GLUTOSE) 40 % gel 15 [...] QAM DavidA. Salamanca MD 7 Units at 06/25/20 0824 ??? insulin lispro (HumaLOG, ADMELOG) 100 unit/mL injection 1-2 Units 1-2 Units subcutaneous Nightly Harlan Salamanca MD 1 Units at 06/24/202109 ??? insulin lispro (HumaLOG, ADMELOG) 100 unit/mL injection 1-3 Units 1-3 Units subcutaneous TID with meals Harlan Salamanca MD 1 Units at 06/23/20 1133 ??? levothyroxine (SYNTHROID) tablet 100 mcg 100 mcg oral Daily - 00 Harlan Salamanca MD 100 mcg at 06/25/20 [...] flush 0.5-20 mL 0.5-20 mL intra-catheter Q8H [facility] Harlan Salamanca MD 10 mL at 06/24/20 2105 ??? sodium chloride 0.9% flush 0.5-20 mL 0.5-20 mL intra-catheter PRN Harlan Salamanca MD ??? sodium chloride 0.9% flush 0.5-20 mL 0.5-20 mL intra-catheter Q8H [facility] Harlan Salamanca MD 10 mL at 06/25/20 0625 ??? [...] Problem: Gastrointestinal hemorrhage Active Problems: Moderate malnutrition ([facility]) PVD (peripheral vascular disease) ([facility]) Anemia Hypothyroidism Hyperlipidemia Dementia (CMS/HCC) Diabetes mellitus ([facility]/HCC) Hypertension Osteomyelitis of Left foot in the [...] PROPHYLAXIS with Lovenox stable for discharge. D/w certified social workers in health care- discharge planning underway Reagan Salinas MD 06/25/2020 [...] Continue with current plan Recommendation/Plan OT Recommendation Half-Way Facility Education: Patient has been educated on [...] 06/24/20 Goal Start Date End Date OT [facility] - [facility] 1 06/24/20 -- Goal Details: Pt will complete toileting tasks and toilet transfer moderate assist Goal Start Date End Date OT [facility] - [facility] 2 06/24/20 -- Goal Details: Pt will complete grooming tasks at sink moderate assist Goal Start Date End Date OT [facility] - [facility] 3 06/24/20 -- Goal Details: Pt will complete UB dressing minimal assist Goal Start Date End Date OT [facility] - [facility] 4 06/24/20 -- Goal Details: Pt will [...] subcutaneous Daily-2100 Harlan Salamanca MD 40 mg at06/23/20 2205 ??? gabapentin (NEURONTIN) capsule 400 mg 400 [...] Units 1-3 Units subcutaneous TID with meals StrHarlan henry MD 1 Units at 06/23/20 1133 ??? [...] 0538 06/22/20 0907 06/22/20 0352 06/21/20 2221 06/21/202220 SODIUM mmol/L -- -- 137 -- 137 [...] Correlation with urinalysis recommended. No definite acute fracturesappreciated. There are multiple patchy lucencies throughout the thoracic and lumbar spine of uncertain significance. Previously described as well either unchanged or minimally more prominent. Slightly different techniques between the 2 CT scans. Clinical and lab correlation recommended. Consider MRI thoracic and lumbar spine. Impression: 1. Rounded mass [...] a family friend. 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 Hospice staff completed bathing 2x/week. putty worker 4 hours day Monday-Monday that completed cleaning [...] this the discharge summary Recommendation/Plan OT Recommendation Half-Way Facility OT Frequency 3-5x/wk Treatment/Interventions ADL/IADL retraining;Balance Training;Endurance training;Functional activity;Functional mobility training;Functional transfer training;Parent/caregiver training and education;Strengthening;Therapeutic activity;Therapeutic exercise OT Equipment Recommended (will continue to assess) Progress Progressing toward goals OT Evaluation Complete Yes Multi-Disciplinary Problems (from Occupational Therapy) Active Problems Problem: OT [facility] Start Date: 06/24/20 Goal Start Date End Date OT [facility] 1 06/24/20 -- Goal Details: Pt will complete toileting tasks and toilet transfer moderate assist Goal Start Date End Date OT [facility] 2 06/24/20 -- Goal Details: Pt will complete grooming tasks at sink moderate assist Goal Start Date End Date OT [facility] 3 06/24/20 -- Goal Details: Pt will complete UB dressing minimal assist Goal Start Date End Date OT [facility] 4 06/24/20 -- Goal Details: [...] a family friend. Prior Function Level of [place] Needs assistance with ADLs;Dependent with homemaking;Dependent with functional transfers Lives With Daughter;Family Receives Help From Family;home care attendant (Pt has choreworker 4hr/day Mon-Fri. 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 Hospice staff completed bathing 2x/week. putty worker 4 hours day Monday-Monday that completed cleaning [...] safely transfer back to bed when needed. Absorption Plant Operator was also contacted and will be available to assist nursing as able with transfers and can further guide staff genetic counselor with pt safety. Pain Assessment Pain Assessment [...] this the discharge summary Recommendation/Plan PT Recommendation/Plan Half-Way Facility PT Frequency 3-5x/wk Treatment/Interventions Balance Training;Bed [...] (from Physical Therapy) Active Problems Problem: PT [facility] Start Date: 06/24/20 Goal Start Date End Date PT [facility] 1 06/24/20 -- Goal Details: Pt will roll BRENDON with minimum assist and BRENDON bedrails for trunk support. Goal Start Date End Date PT [facility] 2 06/24/20 -- Goal Details: Pt will supine<-->sit EOB with minimum to mod assist x1 + bedrail for trunk support. Goal Start Date End Date PT [facility] 3 06/24/20 -- Goal Details: Pt will sit EOB x10 minutes w/ SBA to CGA x1 w/ BRENDON UE support for safety. Goal Start Date End Date PT [facility] 4 06/24/20 -- Goal Details: Pt will perform lateral scooting (side to side) on EOB with minimum to mod assist x1 (to strengthen hips and core in preparation for transfer training via slide board or posterior/anterior scooting bed<-->WC). Goal Start Date End Date PT [facility] 5 06/24/20 -- Goal Details: Pt will perform post-op AKA HEP w/ minimum assist in the bed and rest breaks as needed, BRENDON LE x15. * Arley Peña MD - 06/24/2020 11:43 AM CDT Dictated, Can Be discharged, Will DC Zosyn. No indication. * Twyla Juan MT-ADITI - 06/24/2020 9:50 AM CDT INPATIENT MUSIC [...] response to music this date. Patient at [facility] secondary to osteomyelitis in leftLE. 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) Leisure: watching television Samaritan/Spiritual: Nonden[employer]ational [employer] OBJECTIVE: Observed Behavior State: easy to [...] anxiety PLAN OF CARE: Multi-Disciplinary Problems (from [place] [facility]) Active Problems Problem: [facility] Start Date: 06/24/20 Goal Start Date End Date [facility] 1 06/24/20 -- Goal Details: Patient will increase pulmonary function by completing various exercises with SPO2 at=/> 92% or by increasing SPO2 by =/>1% in at least one music therapy session prior to discharge Goal Start Date End Date [facility] 2 06/24/20 -- Goal Details: Patient will [...] injection 7 Units 7 Units subcutaneous QAM StrDavidA. henry MD 7 Units at 06/23/20 0813 ??? insulin lispro (HumaLOG, ADMELOG) 100 unit/mL injection 1-2 Units 1-2 Units subcutaneous Nightly StrHarlan henry MD 1 Units at 06/19/20 2225 ??? insulin lispro (HumaLOG, ADMELOG) 100 unit/mL injection 1-3 Units 1-3 Units subcutaneous TID with meals StrHarlan henry MD 1 Units at 06/23/20 1133 ??? [...] (premix) 4.5 g 4.5 g intravenous Q6H Harlan Spangler MD 200 mL/hr at 06/23/20 1138 4.5 g at 06/23/20 1138 ??? sodium chloride 0.9% flush 0.5-20 mL 0.5-20 mL intra-catheter Q8H Harlan Spangler MD 10 mL at 06/22/202000 ??? sodium chloride 0.9% flush 0.5-20 mL 0.5-20 mL intra-catheter Harlan Montano MD ??? sodium chloride 0.9% flush 0.5-20 [...] not displayed. Coagulation: Recent Labs Lab Units 04/07/21 0637 APTT sec 32 INR 1.3* Radiology: [...] Nutrition Supplements Select Supplement: Glucerna Shake - [place] 3 times daily Question: Select Supplement: Answer: Glucerna Shake - [place] 06/23/20 1119 06/22/20 1333 Adult Diet Full Liquid Diet effective now Question: ([facility]) Diet type Answer: Full Liquid 06/22/20 1333 [...] of Weight Used for Estimated Protein : Arrington Protein Needs Based on g/k.5 Total Protein [...] assessment Macie Joe RD, LD * Jennifer Phillips, OT - 06/23/2020 11:41 AM CDT Occupational [...] - OK to Discharge No * Lesa Crook [facility] - 06/22/2020 1:37 PM CDT Pharmacy Note [...] PRN Spenser Ascencio MD 650 mg at 06/22/20 0926 ??? amLODIPine (NORVASC) tablet 10 mg 10 [...] 0600 Arley Peña MD 100 mcg at 06/22/20 0545 ??? ondansetron (ZOFRAN) injection 4 mg 4 mg intravenous Q6H PRN Spenser Ascencio MD ??? oxyCODONE (ROXICODONE) tablet 5 mg 5 mg oral Q4H PRN Arley Peña MD 5 mg at 06/22/20925 ??? pantoprazole (PROTONIX) injection 40 mg 40 mg intravenous BID Summer Anguiano MD 40 mg at 06/22/20925 ??? ebllcywaakwg-lxicbpslmc-bwfxgajs (ZOSYN) 3.375 gram/50 mL in dextrose (premix) 3.375 g 3.375 g intravenous Q6H Spenser Maddox MD 100 mL/hr at 06/22/20 0545 3.375 g at 06/22/20 0545 ??? sodium chloride 0.9% flush 0.5-20 mL 0.5-20 mL intra-catheter Q8H Spenser Maddox MD 10 mL at 06/22/20 0546 ??? sodium chloride 0.9% flush 0.5-20 mL 0.5-20 mL intra-catheter Spenser Rivas MD ??? sodium chloride 0.9% flush 0.5-20 mL 0.5-20 mL intra-catheter Q8H Spenser Maddox MD 10 mL at 06/22/20 0546 ??? sodium chloride 0.9% flush 0.5-20 mL 0.5-20 mL intra-catheter Spenser Rivas MD ??? sodium chloride 0.9% infusion 75 mL/hr intravenous Continuous Spenser Ascencio MD 75 mL/hr at06/22/20 0546 75 mL/hr at 06/22/20 0546 Lab/Radiology/Diagnostic Review: CBC: Recent Labs Lab Units [...] making: moderate DVT PROPHYLAXIS with SCD's Summer nAguiano MD 06/22/2020 * Arley Peña MD - [...] 2221 06/21/20 1908 06/21/20 0558 06/21/20 0558 WBC K/cumm 8.8 9.9 -- -- 6.9 HEMOGLOBIN g/dL 8.5* 8.7* 8.2* < > 6.1* PLATELETS K/cumm 195 176 -- -- 191 < > = values in this interval not displayed. Endocrine : ?? Diabetes mellitus; type II. SSI. Recent Labs Lab Units 06/22/20 0907 06/22/20 0352 06/21/20 2221 06/21/20 2123 06/21/20 1635 06/21/20 1336 06/21/20 0559 06/20/20 2021 06/20/20 1646 06/20/20 1127 GLUCOSE mg/dL -- 102 [...] have been put in place by the [facility] system to preserve limited supplies. [employer] Heparin shortage has also impacted choices for VTE prophylaxis and treatment. * Arley Peña MD - 06/22/2020 12:00 AM CDT A 65-year-old black female who is diabetic has peripheral vascular disease and history of COVID last year at which time I had done an hrbsr-bvi-homd amputation on the right. She had come to this hospital less than a week ago with ischemic rest pain and I have done a left toque-aun-tcqr amputation about 3 days ago. I was [...] feedings probably tomorrow. Job ID/VF Job ID: [id number] * Spenser Ascencio MD - 06/21/2020 10:06 [...] held, stat H&H obtained, and Protonix ordered. supervisor asbestos textile RN notified Silvio of H&H results, and stated we were to call an FLOOR COVERING CONTRACTOR and new orders would be put in to transferthe pt to the ICU. FLOOR COVERING CONTRACTOR team arrived, pt assessed, and transferred to [...] Arley Peña MD 10 mg at 06/20/20 0854 ??? dextrose (GLUTOSE) 40 % gel [...] CMP: Recent Labs Lab Units 06/21/20 0559 06/20/20202006/20/20 1646 06/19/20 0556 06/19/20 0550 06/17/20 0645 [...] Peña MD 10 mg at 06/20/20853 ??? cefepime (MAXIPIME) 2,000 mg in sodium [...] capsule 300 mg 300 mg oral BID Alrey Peña MD 300 mg at 06/20/20 0854 ??? glucagon injection 1 mg 1 mg intramuscular Q30 Min PRN Arley Peña MD ??? insulin glargine (LANTUS) 100 unit/mL injection 7 Units 7 Units subcutaneous QAM Arley Peña MD 7 Units at 06/20/20 0854 ??? insulin lispro (HumaLOG, ADMELOG) 100 unit/mL injection 1-2 Units 1-2 Units subcutaneous Nightly Arley Peña MD 1 Units at 06/19/205 ??? insulin lispro (HumaLOG, ADMELOG) 100 unit/mL [...] lung is clear. Electronically signed by: Tomi L. Romel, M.D. A/P Labs and radiology findings were personally reviewed by me. Active Problems: PVD (peripheral vascular disease) ([facility]) Hyperlipidemia Dementia ([facility]/HCC) Moderate malnutrition (CMS/HCC) Anemia Hypothyroidism Diabetes mellitus [...] of Weight Used for Estimated Protein : [place]rington Protein Needs Based on g/k.5 Total Protein [...] is eating well and was eating well RESEARCH PHYSICIAN. Pt states she eats softer foods at [...] Nightly Tanisha Bundy MD 2 Units at 06/17/20 2223 ??? insulin lispro (HumaLOG, ADMELOG) 100 unit/mL [...] pain. Discussed with the patient's daughter at [phone] She reports the patient is not ambulatory. [...] mcg 75 mcg oral Daily - 0600 Tanisha Bundy MD 75 mcgat 06/17/20 0532 ??? [...] check CT AIF, d/w vascular surgery - 03/14 blood cx positive for Staph Prior hx [...] Carbohydrate Diet effective now Question Answer Comment ([facility]) Diet type Modified Consistency Modified Consistency: Pureed Diabetic: Consistent Carbohydrate 06/17/20 1224 06/17/20 1102 Oral Nutrition Supplements Select Supplement: Glucerna Shake - Any Flavor 3 times daily Question: Select Supplement: Answer: Glucerna Shake - Any Flavor 06/17/20 1101 ASPEN Malnutrition Assessment: Nutrition Focused Physical Exam Notes: Subcutaneous Fat Loss Orbital Region - Surrounding the Eye: Somewhat hollow look Muscle Loss [place] Region - Temporalis Muscle: Can see/feel well-defined [...] of Weight Used for Estimated Protein : [place]rington Protein Needs Based on g/k.5 Total Protein [...] to help answer questions. Pt was onhospice RESEARCH PHYSICIAN. Did not observe any wasting on NFPE. Wt decreasing per documentation but wt from 9/3 was prior to amputation. Per RN, pt [...] good historian, but [place] [facility] [place] with a right [...] follow up further. Job ID/VF Job ID: [id number] * Lisa Pradhan MD - 06/16/2020 8:46 PM CDT History & Physical Date of service: 06/16/20 Primary care provider: Zeke Puente MD Chief Complaint: Leg pain HPI: 65-year-old female with a past medical history of dementia, osteomyelitis of bilat LE, DM, HTN, recovered covid 19 who presented to the ED with complaints of lethargy onset today. She was admitted in Nov 2019 at [facility]. She had a R heel ulcer [...] while she was recovering from a left fdelc-tix-kaql amputation performed on 2020. During a prior [...] the discussions with the surgery that the rotiz rgical intervention was not recommended. Also endoscopy [...] mcg tablet Take 75 mcg by mouth therapeutic recreation director before breakfast Unknown at Unknown time ??? [...] Friends and Family: Patient refused ??? Attends [employer]: Patient refused ??? Active Member of [...] Pulse: [phone] 81 Resp: 13 02 20 13 Temp: 37.4 ??C (99.4 ??F) TempSrc: [...] the past I had done a right-sided rzorv-qem-iuiy amputation for bacteremia from osteomyelitis of the right heel about October or November of last year. At that time, there was an osteomyelitis of the left heel. Second amputation was recommended. However, patient's family wanted to go over into hospice and so she was discharged from [facility] after the amputation. I was called [...] supplement 3 times a day of the [email or web address]. Examination She is a well-built, nourished, black [...] both lower extremities. Of course, status post jmmdz-tkf-sokd amputation on the right. The ZAYNAB done [...] bilateral superficial artery and infrapopliteal occlusive disease. Jiooboor-iu-zppabr distal ischemia. Discussion I have told the daughter that she can have vbyhc-kvt-yzmn amputation, although osteomyelitis there would not be [...] doses of levothyroxine. We will proceed with dsuqw-xpa-inta amputation on the left. Thank you. Job ID/VF Job ID: [id number] * Arley Peña MD - 06/18/2020 10:13 PM CDT Discussed case with . Npo for now but see her tomorrow and may schedule her for amputation tomorrow. * Tomi Arguelles DPM - 06/17/2020 3:06 PM CDTAssociated Order(s): [...] mcg tablet Take 75 mcg by mouth therapeutic recreation director before breakfast Unknown at Unknown time ??? [...] 06/26/2020 4:07 PM CDT Attempted to call [facility] 5 times to give report on pt, was told the nurse would call me back, but nurse did not call back. [facility] came to [place] pt at 1545 and pt wastransported to facility. * Layne Alarcon RN - 06/21/2020 8:37 PM CDT Pt was retaining urine, frequently straight cathed RESEARCH PHYSICIAN documented in this encounter ED Notes * [...] (CMS/HCC) 11/20/2019 ??? PVD (peripheral vascular disease) ([facility]) 11/20/2019 ??? Anemia 11/20/2019 ??? COVID-19 11/20/2019 ??? Hypothyroidism 11/20/2019 ??? Hyperlipidemia 11/20/2019 ??? Pressure injury of sacral region, stage 4 ([facility]/HCC) 11/20/2019 ??? Moderate malnutrition (CMS/HCC) 11/07/2019 ??? Malignant neoplasm of upper-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, estrogen receptor negative ([facility]/HCC) 11/13/2017 Past Medical History: Diagnosis Date ??? Dementia (CMS/HCC) ??? Diabetes mellitus ([facility]/HCC) ??? Hypertension Past Surgical History: Procedure Laterality [...] as of Jun 17 1915 Time: 06/16 1800 Comment: Discussed with both sons. 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 Temp 101f. Pt a/ox1. * Mally Finley RN - 06/16/2020 12:29 PM CDT Bed: Expected date: Expected time: Means of arrival: Comments: EMS leg pain Mally Finley RN 06/16/20 1229 documented in this encounter Miscellaneous [...] the medical record. Preeti Barr MD 06/27/20 6388 * Plan of Care - Jennifer Todd RN - 06/26/2020 3:08 PM CDT Goals: Clinical Goals for the Shift: VSS, pain control, monitor surgical site, work with therapy, safety, comfort Summary: VSS, pt will be discharged via ambulance to [facility], up in chair for breakfast and lunch, [...] been [facility] to [facility] in [place], [place].The patient's daughter,Ailyn Turner is agreeable with the discharge plan.Preliminary discharge medication list was faxed.The patient will transport via [facility] this afternoon at 3 pm.Dispo code-skilled [...] therapy at discharge.SNF referrals sent to some [facility] preferred providers.Additionally,I will email the patient's daughter a listing of SNFs. * ECIN Note - Preeti Martinez LCSW - 06/25/2020 2:59 PM CDT Patient Information: CABLE INSTALLATION TECHNICIAN Eval and Treat Last Documented CABLE INSTALLATION TECHNICIAN ASSESSMENT (most recent) CABLE INSTALLATION TECHNICIAN Evaluation - 06/25/20 1054 General Session Type Treatment Precautions Precautions Bed/Chair Alarm;Fall risk;Safety Cognition Orientation Oriented X4 (person, place, time, situation) Pain Assessment Pain Assessment 0-10 Pain Score 8 Patient's Stated Pain Goal No pain Pain Type Surgical pain Pain Location Leg Pain Orientation Left CABLE INSTALLATION TECHNICIAN SWALLOW STUDY (most recent) Clinical Swallow Study No documentation. CABLE INSTALLATION TECHNICIAN TREATMENT (most recent) CABLE INSTALLATION TECHNICIAN Treatment - 06/25/20 1054 General Session Type Treatment Precautions Precautions Bed/Chair Alarm;Fall risk;Safety Pain Assessment Pain Assessment 0-10 Pain Score 8 Patient's Stated Pain Goal No pain Pain Type Surgical pain Pain Location Leg Pain Orientation Left CABLE INSTALLATION TECHNICIAN Notes (Notes from 06/23/20 through 06/25/20) No [...] per protocol -MW (r) BB (t) -- -- -- Subjective Agreeable to Therapy -BB -- Other [...] risk -EW -- Type of Home Apartment -MW (r) BB (t) -- -- -- Home Layout One level -MW (r) BB (t) -- -- -- Home Access Other (Comment) pt states some stairs to enter; unsure of how many or rails -MW (r) BB(t) -- -- -- Bathroom Accessibility Not accessible pt states can't get into bathroom in her chair at home -MW (r) BB (t) -- -- -- Home Mobility Equipment -- pt had amisha + hospice chair - both taken back by hospice -MW (r) BB (t)-- -- -- Home ADL Equipment Other (Comment) unsure -Brainient (r) BB (t) -- -- -- Additional [...] friend. -BB -- -- -- Level of [place] Needs assistance with ADLs;Dependent with homemaking;Dependent with functional transfers -Brainient (r) BB (t) -- -- -- Lives With Daughter;Family -Brainient (r) BB (t) -- -- -- Receives Help From Family;home care attendant Pt has choreworker 4hr/day Mon-Fri. -Brainient (r) BB (t) -- -- -- Driving No -Brainient (r) BB (t) -- -- -- ADL Assistance Needs assistance -Brainient (r) BB (t) -- -- -- Bathing Total -Brainient (r) BB (t) -- -- -- Dressing Maximal -MW (r) BB (t) -- -- -- Grooming Maximal -Brainient (r) BB (t) -- -- -- Toileting Total -Brainient (r) BB (t) -- -- -- Feeding Stand by -Brainient (r) BB (t) -- -- -- Instrumental ADL (IADL) Assistance Needs assistance -Brainient (r) BB (t) -- -- -- Meal Prep Total -BB -- -- -- Laundry Total -BB -- -- -- Cleaning Total -BB -- -- -- Shopping Total -BB -- -- -- Rope Walker Total -BB -- -- -- Medical Management Total -BB -- -- -- Vocational/Occupation Retired -BB -- -- -- 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 Hospice staff completed bathing 2x/week. putty worker 4 hours day Monday-Monday that completed cleaning [...] safely transfer back to bed when needed. Absorption Plant Operator was also contacted and will be available to assist nursing as able with transfers and can further guide staff genetic counselor with pt safety. - BB -- -- Pre-session: HR=80, O2=96%, BV=413/79 -EW Pain Assessment 0-10 -BB -- 0-10 [...] -BB -- -- -- R Hip Flexion 2- -BB -- -- -- R Hip ABduction 03/17 -BB -- -- -- R Hip ADduction 2 -BB -- -- -- LLE Assessment X not formally assessed due to pain; observed w/ mobility -BB -- -- -- L Hip Flexion 2 -BB -- -- -- L Hip ABduction 03/17 -BB -- -- -- L Hip ADduction 2 -BB -- -- -- Other PT Comments [...] since Nov 2019. Pt does not have 24/ care in the home. -BB ---- -- Plan Plan of care initiated;If this is the last note, consider this the discharge summary -BB -- --Attempt evaluation as tolerated -EW -- PT Recommendation/Plan (S) Half-Way Facility -BB -- (S) Defer at this [...] PT. PT completed session w/ assistance of account support specialist to maximize safety with all functional [...] a family friend. 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 Hospice staff completed bathing 2x/week. putty worker 4 hours day Monday-Monday that completed cleaning [...] discharge summary -MW -- OT Recommendation (S) Half-Way Facility -MW -- OT Frequency 3-5x/wk -MW [...] with current plan -ES OT Recommendation (S) Half-Way Facility -ES User Franco (r) = Recorded By, (t) = Taken By, (c) = Cosigned By Initials Name Effective Dates ES Ivelisse March, OT 12/03/18 - OT Notes (Notes from 06/23/20 through 06/25/20) 06/23/2020 11:42 AM Progress Notes signed by Jennifer Phillips OT 06/24/2020 3:00 PM Progress Notes signed by Kaitlin Vallejo, YVONNE 06/25/2020 12:03 PM Progress Notes signed by [...] Shift: VSS, pain control, tolerate diet, turn N6ftxel, work with therapy, monitor surgical site, safety, comfort Summary: VSS, pain under control with PRN medications, tolerating GI soft diet with no complaints of nausea or abdominal pain, turned O6fohrr, up to chair with therapy, surgical site [...] h/h, safety, rest Summary: Pt arrived to [facility] from ICU approximately 2230. VSS. A&Ox3 [...] to ICU room # 599.Report provided to Divya,certified social workers in health care who will follow the patient. * Provider [...] with Dr. Peña Operative notes states: 06/19 Zbbcp-iyw-jyzw amputation of the left This documentation will become part of the patient???s medical record. 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 VSS, calm, oriented [...] decision. * pain complaint to SI from Bettina MERAZ. Dilaudid admin x1. Labs: note: chemistry sent to lab at 3:52 am, as of 6:13 am lab results still pending, per lab there was a machine issue, but it is now up and running. * WBC continues to climb, * concern about bleeding on the floor. Hgb =8.2 during FLOOR COVERING CONTRACTOR, Hgb = 8.7 & 8.5 in ICU. [...] per MAY. Pt didn't void by 1300, notified and straight cath completed with 750mL [...] Funmilayo and tylenol, IV fluids infusing per MAR. BG stable post op. Bed alarm in place, call light within reach, resting in bed at this time, will continue to monitor. * Perioperative Nursing Note - Tika Sales RN - 06/19/2020 7:52 PM CDT PT TRANSPORTED IN STABLE CONDITION VIA BED TO PACU. SAFETY AND COMFORT MEASURES PROVIDED. ACCOMPANIED BY ANESTHESIA AND SUB PRIOR. WARM BLANKETS X-3. * Perioperative Nursing Note [...] superficial femoral artery that was occluded. Operation Huvop-wlj-uhpd amputation of the left. Anesthesia General. Procedure [...] the anterior muscles, the femur was exposed. Per iosteum was elevated, and the femur was transected with an electrical saw several centimeters proximally. The posterior muscles were cut. Eventually, the leg was amputated. There was some bleeding inthe hamstring muscles that was controlled with 3-0 silk stick ties. Some of them electrocauterized.In the end, hemostasis was accomplished. Irrigation was carried out with saline. Several interrupted sutures of 3-0 Vicryl were placed for the fascia. Skin was closed with samara; 4 x 4 and compression dressings were being applied. Sponge count was reported to be correct on 2 occasions. The patient was being transferred to recovery in satisfactory condition. The patient's blood pressure was maintained. However, low dose of Hebert-Synephrine was being given by the anesthesia department. She received 1000 mL of IV fluids. The estimated blood loss was 350 mL. No blood replacement was necessary. Job ID/VF Job ID: [id number] * Plan of Care - Kathy Pineda [...] Note Information Obtained From: Adult child Name: Ailyn wright [phone] (06/17/201408) Admission Source: from home to [facility] ER Plan Includes: Discharge needs Primary Source of Transportation: family Health Insurance Coverage: Medicare A/B and Medicaid Primary Care Provider: Zeke Puente MD Prior to Admission: Primary Caregiver: Family Support System: Children, Family members, Home care staff Home Care Services: Yes Type of Home Care Services: putty worker Home care service name and phone number: in the home Monday- Monday from 9a-1p Durable Medical Equipment: Wheelchair, Walker (wheeled) Living Arrangements: Children Type of Residence: Apartment Steps in home? : Yes, Inside home Number of steps inside:: 12 steps Medication management: Needs Assistance (Comment) (06/17/201408) Potential discharge needs include: SNF vs HHC Behavioral Health Services: Behavioral Health Services: No (06/17/201408) Patient expects to be Discharged to: Half-Way Facility, (06/17/20 1202) Additional Information: SW received consult for discharge planning. SW spoke with patient's daughter, Ailyn to complete social assessment. Patient lives with Ailyn and granddaughter. Ailyn does work, there is a medicaid choreworker who comes in from 9a-1pm Mondayur Monday. Ailyn's 27 year old daughter helps until Ailyn comes home. Patient primarily uses a wheelchair and needs assistance for all ADLs/IADLs. Patient was recently on hospice and discharged from their services due to improvement. Ailyn states she and her brothers have spoken about the patient going to SNF at discharge. Patient does not have a written POA, [facility] [phone]. Ailyn is the youngest child although stated [...] Collaboration with patient, MD, direct care nurse, Film Critic, Nurse Coordinator and other members of the health care team to assure needed interventions completed. 2. Return patient to optimal level of self-care post discharge. 3. Applications Consultant will follow for Discharge Planning - interventions [...] time, pt was in a SNF in [place], [place]. At some point she had hospice but not sure for how long, apparently those services were ceased. Pt was admitted for left leg pain, recent tx of infection, has the need for possible amputation. real estate services administrator has been consulted as likely will need placement once again. Podiatry eval is pending. Current txdoes include IV abxs. Weight bearing status will need to be determined if and when therapies are ordered. Will continue to monitor along with certified social workers in health care. * Plan of Care - Kathy Pineda [...] Procedure Name Priority Date/Time Associated Diagnosis Comments [place] CRITICAL CARE ILL/INJURED PATIENT INIT 30-74 MIN [...] 38 PM CDT PVD (peripheral vascular disease) ([facility]) AMPUTATION ABOVE KNEE 06/19/2020 5:52 PM CDT [...] CDT documented in this encounter Results * [place] CRITICAL CARE ILL/INJURED PATIENT INIT 30-74 MIN [...] Glucose, POC 97 70 - 140 mg/dL [facility]3] Comment: For Glucose values <35 mg/dl when Hematocrit is >60 mg/dl,the test may not accurately detect significant hypoglycemia,and testing in the Laboratory should be considered if clinically indicated. Blood specimen (specimen) 06/26/2020 11:19 AM CDT 06/26/2020 11:19 AM CDT Reagan Salinas MD LAB POCT ORDERABLES - DEVICE F inal Result Performing Organization Address [facility] Co de Phone Number [facility])[3] [address] [facility] [place], [place] [id number] * POCT glucose (06/26/2020 6:10 AM CDT) Glucose, POC 90 70 - 140 mg/dL [facility]3] Comment: For Glucose values <35 mg/dl when Hematocrit is >60 mg/dl,the test may not accurately detect significant hypoglycemia,and testing in the Laboratory should be considered if clinically indicated. Blood specimen (specimen) 06/26/2020 6:10 AM CDT 06/26/2020 6:10 AM CDT us Reagan Salinas MD LAB POCT ORDERABLES - DEVICE F inal Result Performing Organization Address [facility] Co de Phone Number [facility])[3] [address] [facility] [place] [address] * (ABNORMAL) POCT glucose (06/25/2020 10:34 PM CDT) Glucose, POC 170(H) 70 - 140 mg/dL [facility]3] Comment: For Glucose values <35 mg/dl when Hematocrit is >60 mg/dl,the test may not accurately detect significant hypoglycemia,and testing in the Laboratory should be considered if clinically indicated. Blood specimen (specimen) 06/25/2020 10:34 PM CDT 06/25/2020 10:34 PM CDT Result [facility] Reagan Salinas MD LAB POCT ORDERABLES - DEVICE F inal Result Performing Organization Address [facility] Co de Phone Number [facility])[3] [address] [facility] [place] [address] * (ABNORMAL) POCT glucose (06/25/2020 4:35 PM CDT) Glucose, POC 160(H) 70 - 140 mg/dL [facility]3] Comment: For Glucose values <35 mg/dl when Hematocrit is >60 mg/dl,the test may not accurately detect significant hypoglycemia,and testing in the Laboratory should be considered if clinically indicated. Blood specimen (specimen) 06/25/2020 4:35 PM CDT 06/25/2020 4:35 PM CDT Result [facility] Reagan Salinas MD LAB POCT ORDERABLES - DEVICE F inal Result Performing Organization Address [facility] de Phone Number [facility]3] [address] [facility] [place] [address] * (ABNORMAL) POCT glucose (06/25/2020 11:25 AM CDT) Glucose, POC 146(H) 70 - 140 mg/dL [facility]3] Comment: For Glucose values <35 mg/dl when Hematocrit is >60 mg/dl,the test may not accurately detect significant hypoglycemia,and testing in the Laboratory should be considered if clinically indicated. Blood specimen (specimen) 06/25/2020 11:25 AM CDT 06/25/2020 11:25 AM CDT Result [facility] Reagan Salinas MD LAB POCT ORDERABLES - DEVICE F inal Result Performing Organization Address [facility] Co de Phone Number [facility])[3] [address] [place] [address] * POCT glucose (06/25/2020 6:40 AM CDT) Glucose, POC 138 70 - 140 mg/dL [facility]3] Comment: For Glucose values <35 mg/dl when Hematocrit is >60 mg/dl,the test may not accurately detect significant hypoglycemia,and testing in the Laboratory should be considered if clinically indicated. Blood specimen (specimen) 06/25/2020 6:40 AM CDT 06/25/2020 6:40 AM CDT Reagan Salinas MD LAB POCT ORDERABLES - DEVICE F inal Result Performing Organization Address [facility] Co de Phone Number [facility])[3] [address] [facility] [place], [place] [phone] * (ABNORMAL) POCT glucose (06/24/2020 9:07 PM CDT) Glucose, POC 202(H) 70 - 140 mg/dL [facility]3] Comment: For Glucose values <35 mg/dl when Hematocrit is >60 mg/dl,the test may not accurately detect significant hypoglycemia,and testing in the Laboratory should be considered if clinically indicated. Blood specimen (specimen) 06/24/2020 9:07 PM CDT 06/24/2020 9:07 PM CDT Summer Anguiano MD LAB POCT ORDERABLES - DEVIC E Final Result Performing Organization Address [facility] Co de Phone Number [facility])[3] [address] [facility] [place] [address] * (ABNORMAL) POCT glucose (06/24/2020 5:13 PM CDT) Glucose, POC 156(H) 70 - 140 mg/dL [facility]3] Comment: For Glucose values <35 mg/dl when Hematocrit is >60 mg/dl,the test may not accurately detect significant hypoglycemia,and testing in the Laboratory should be considered if clinically indicated. Blood specimen (specimen) 06/24/2020 5:13 PM CDT 06/24/2020 5:13 PM CDT Summer Anguiano MD LAB POCT ORDERABLES - DEVIC E Final Result Performing Organization Address [facility] Co de Phone Number [facility])[3] [address] [facility] [place] [address] * POCT glucose (06/24/2020 11:33 AM CDT) Glucose, POC 112 70 - 140 mg/dL [facility]3] Comment: For Glucose values <35 mg/dl when Hematocrit is >60 mg/dl,the test may not accurately detect significant hypoglycemia,and testing in the Laboratory should be considered if clinically indicated. Blood specimen (specimen) 06/24/2020 11:33 AM CDT 06/24/2020 11:33 AM CDT Summer Anguiano MD LAB POCT ORDERABLES - DEVIC E Final Result Performing Organization Address [facility] de Phone Number [facility])[3] [address] [facility] [place] [address] * POCT glucose (06/24/2020 7:50 AM CDT) Glucose, POC 123 70 - 140 mg/dL [facility]3] Comment: For Glucose values <35 mg/dl when Hematocrit is >60 mg/dl,the test may not accurately detect significant hypoglycemia,and testing in the Laboratory should be considered if clinically indicated. Blood specimen (specimen) 06/24/2020 7:50 AM CDT 06/24/2020 7:50 AM CDT Summer Anguiano MD LAB POCT ORDERABLES - DEVIC E Final Result Performing Organization Address [facility] de Phone Number [facility] [facility]3] [address] [facility] [place] [address] * eGFR (06/24/2020 5:38 AM CDT) eGFR 96 mL/min/1.7 3 m2 [facility]3] Comment: Interpretive Data Reference Interval Normal ?>/= [...] Anguiano MD LAB BLOOD ORDERABLES Final Result [facility]3] [address] Department [place] [address] * (ABNORMAL) Differential, auto (06/24/2020 5:38 AM CDT) Pathologist [facility] Neutrophil abs 7.5(H) 1.7 - 6.5 K/cumm [facility]3] Imm gran abs 0.5(H) 0.0 - 0.1 K/cumm [facility]3] Lymphocyte abs 2.2 0.8 - 3.3 K/cumm [facility]3] Monocyte abs 0.6 0.2 - 0.8 K/cumm [facility]3] Eosinophil abs 0.2 0.0 - 0.5 K/cumm [facility]3] Basophil abs 0.1 0.0 - 0.1 K/cumm [facility]3] Neutrophil pct 68.1 % [facility]3] Comment: Interpretive Data Percent cell count reference ranges are not reported, since discordance with absolute values may lead to misinterpretation of CBC data. Current Interpretive Data was last revised on 2017. Imm gran pct 4.8 % [facility]3] Comment: Interpretive Data Percent cell count reference ranges are not reported, since discordance with absolute values may lead to misinterpretation of CBC data. Current Interpretive Data was last revised on 2017. Lymphocyte pct 19.8 % [facility]3] Comment: Interpretive Data Percent cell count reference ranges are not reported, since discordance with absolute values may lead to misinterpretation of CBC data. Current Interpretive Data was last revised on 2017. Monocyte pct 5.0 % [facility]3] Comment: Interpretive Data Percent cell count reference ranges are not reported, since discordance with absolute values may lead to misinterpretation of CBC data. Current Interpretive Data was last revised on 2017. Eosinophil pct 1.8 % [facility]3] Comment: Interpretive Data Percent cell count reference ranges are not reported, since discordance with absolute values may lead to misinterpretation of CBC data. Current Interpretive Data was last revised on 2017. Basophil pct 0.5 % [facility]3] Comment: Interpretive Data Percent cell count reference ranges are not reported, since discordance with absolute values may lead to misinterpretation of CBC data. Current Interpretive Data was last revised on 2017. Blood specimen (specimen) 06/24/2020 5:38 AM CDT 06/24/2020 6:18 AM CDT us Summer Anguiano MD LAB BLOOD ORDERABLES Final Result [facility]3] [address] Department [place] [address] * (ABNORMAL) Basic metabolic panel (06/24/2020 5:38 AM CDT) Pathologist [facility] Sodium 137 135 - 145 mmol/L [facility]3] Potassium, pl 3.7 3.3 - 4.9 mmol/L [facility]3] Chloride 97 97 - 110 mmol/L [facility]3] CO2 30 22 - 32 mmol/L [facility]3] Anion gap 10 2 - 15 mmol/L [facility]3] BUN 10 8 - 25 mg/dL [facility]3] Creatinine 0.60 0.60 - 1.10 mg/dL [facility]3] Glucose 96 70 - 199 mg/dL [facility]3] Comment: Interpretive Data Fasting glucose >/= 126 [...] 2017. Calcium 8.3(L) 8.5 - 10.3 mg/dL [facility]3] Blood specimen (specimen) 06/24/2020 5:38 AM CDT 06/24/2020 6:16 AM CDT us Summer Anguiano MD LAB BLOOD ORDERABLES Final Result [facility]3] [address] Department [place] [address] * (ABNORMAL) CBC with auto differential (06/24/2020 5:38 AM CDT) [facility] WBC 11.1(H) 3.8 - 9.9 K/cumm [facility]3] Hgb 7.6(L) 11.9 - 15.5 g/dL [facility]3] Hct 23.1(L) 35.6 - 45.5 % [facility]3] Plt 248 150 - 400 K/cumm [facility]3] MPV 10.0 9.1 - 12.3 fL [facility]3] RBC 2.43(L) 3.90 - 5.20 M/cumm [facility]3] MCV 95.1 81.3 - 96.4 fL [facility]3] MCH 31.3 27.1 - 33.3 pg [facility]3] MCHC 32.9 32.3 - 35.7 g/dL [facility]3] RDW CV 15.8(H) 11.1 - 14.9 % [facility]3] RDW SD 54.2(H) 35.7 - 48.1 fL [facility]3] NRBC abs 0.05(H) 0.00 - 0.01 K/cumm [facility]3] Blood specimen (specimen) 06/24/2020 5:38 AM CDT 06/24/2020 6:18 AM CDT Summer Anguiano MD LAB BLOOD ORDERABLES Final Result Performing Organization Address [facility] Co de Phone Number [facility]3] [address] [employer] [place], [place] [id number] * (ABNORMAL) POCT glucose (06/23/2020 10:09 PM CDT) Glucose, POC 170(H) 70 - 140 mg/dL [facility]3] Comment: For Glucose values <35 mg/dl when Hematocrit is >60 mg/dl,the test may not accurately detect significant hypoglycemia,and testing in the Laboratory should be considered if clinically indicated. Blood specimen (specimen) 06/23/2020 10:09 PM CDT 06/23/2020 10:09 PM CDT Summer Anguiano MD LAB POCT ORDERABLES - DEVIC E Final Result Performing Organization Address City/[facility]/ZIP Co de Phone Number [facility])[3] [address] [facility] [employer] [place], [place] [id number] * POCT glucose (06/23/2020 4:32 PM CDT) Glucose, POC 112 70 - 140 mg/dL [facility]3] Comment: For Glucose values <35 mg/dl when Hematocrit is >60 mg/dl,the test may not accurately detect significant hypoglycemia,and testing in the Laboratory should be considered if clinically indicated. Blood specimen (specimen) 06/23/2020 4:32 PM CDT 06/23/2020 4:32 PM CDT Summer Anguiano MD LAB POCT ORDERABLES - DEVIC E Final Result Performing Organization Address [facility] de Phone Number [facility]3] [address] [place] [address] * (ABNORMAL) POCT glucose (06/23/2020 11:32 AM CDT) [facility] Glucose, POC 180(H) 70 - 140 mg/dL [facility]3] Comment: For Glucose values <35 mg/dl when Hematocrit is >60 mg/dl,the test may not accurately detect significant hypoglycemia,and testing in the Laboratory should be considered if clinically indicated. Blood specimen (specimen) 06/23/2020 11:32 AM CDT 06/23/2020 11:32 AM CDT Result [facility] Summer Anguiano MD LAB POCT ORDERABLES - DEVIC E Final Result Performing Organization Address [facility] de Phone Number [facility]3] [address] [place] [address] * CBC with differential - Add on lab test (06/23/2020 8:06 AM CDT) [facility] Acceptable Yes [facility]3] Blood specimen (specimen) 06/23/2020 8:06 AM CDT 06/23/2020 8:07 AM CDT Narrative [facility]3] - 06/23/2020 8:07 AM CDT Name of Test->CBC with differential Summer Anguiano MD LAB BLOOD ORDERABLES Final Result Performing Organization Address City/[facility] Co de Phone Number [facility]3] [address] Department [place] [address] * POCT glucose (06/23/2020 6:06 AM CDT) [facility] Glucose, POC 76 70 - 140 mg/dL [facility]3] Comment: For Glucose values <35 mg/dl when Hematocrit is >60 mg/dl,the test may not accurately detect significant hypoglycemia,and testing in the Laboratory should be considered if clinically indicated. Blood specimen (specimen) 06/23/2020 6:06 AM CDT 06/23/2020 6:06 AM CDT us Summer Anguiano MD LAB POCT ORDERABLES - DEVIC E Final Result [facility]3] [address] Department [place] [address] * (ABNORMAL) Differential, auto (06/23/2020 6:01 AM CDT) [facility] Neutrophil abs 9.3(H) 1.7 - 6.5 K/cumm [facility]3] Imm gran abs 0.5(H) 0.0 - 0.1 K/cumm [facility]3] Lymphocyte abs 2.2 0.8 - 3.3 K/cumm [facility]3] Monocyte abs 0.5 0.2 - 0.8 K/cumm [facility]3] Eosinophil abs 0.3 0.0 - 0.5 K/cumm [facility]3] Basophil abs 0.1 0.0 - 0.1 K/cumm [facility]3] Neutrophil pct 72.5 % [facility]3] Comment: Interpretive Data Percent cell count reference ranges are not reported, since discordance with absolute values may lead to misinterpretation of CBC data. Current Interpretive Data was last revised on 2017. Imm gran pct 3.8 % [facility]3] Comment: Interpretive Data Percent cell count reference ranges are not reported, since discordance with absolute values may lead to misinterpretation of CBC data. Current Interpretive Data was last revised on 2017. Lymphocyte pct 16.9 % [facility]3] Comment: Interpretive Data Percent cell count reference ranges are not reported, since discordance with absolute values may lead to misinterpretation of CBC data. Current Interpretive Data was last revised on 2017. Monocyte pct 4.1 % [facility]3] Comment: Interpretive Data Percent cell count reference ranges are not reported, since discordance with absolute values may lead to misinterpretation of CBC data. Current Interpretive Data was last revised on 2017. Eosinophil pct 2.2 % [facility]3] Comment: Interpretive Data Percent cell count reference ranges are not reported, since discordance with absolute values may lead to misinterpretation of CBC data. Current Interpretive Data was last revised on 2017. Basophil pct 0.5 % [facility]3] Comment: Interpretive Data Percent cell count reference ranges are not reported, since discordance with absolute values may lead to misinterpretation of CBC data. Current Interpretive Data was last revised on 2017. Blood specimen (specimen) 06/23/2020 6:01 AM CDT 06/23/2020 8:04 AM CDT Summer Anguiano MD LAB BLOOD ORDERABLES Final Result [facility]3] [address] Department [place] [address] * (ABNORMAL) CBC with auto differential (06/23/2020 6:01 AM CDT) WBC 12.8(H) 3.8 - 9.9 K/cumm [facility]3] Hgb 7.2(L) 11.9 - 15.5 g/dL [facility]3] Hct 21.2(L) 35.6 - 45.5 % [facility]3] Plt 208 150 - 400 K/cumm [facility]3] MPV 10.2 9.1 - 12.3 fL [facility]3] RBC 2.25(L) 3.90 - 5.20 M/cumm [facility]3] MCV 94.2 81.3 - 96.4 fL [facility]3] MCH 32.0 27.1 - 33.3 pg [facility]3] MCHC 34.0 32.3 - 35.7 g/dL [facility]3] RDW CV 16.3(H) 11.1 - 14.9 % [facility]3] RDW SD 55.0(H) 35.7 - 48.1 fL [facility]3] NRBC abs 0.02(H) 0.00 - 0.01 K/cumm [facility]3] Blood specimen (specimen) 06/23/2020 6:01 AM CDT 06/23/2020 8:04 AM CDT Narrative [facility]3] - 06/23/2020 8:09 AM CDT added to blood in lab us Summer Anguiano MD LAB BLOOD ORDERABLES Final Result [facility]3] [address] [facility] [place] [address] * (ABNORMAL) Hemoglobin and hematocrit (06/23/2020 6:01 AM CDT) Hgb 7.3(L) 11.9 - 15.5 g/dL [facility]3] Hct 21.5(L) 35.6 - 45.5 % [facility]3] Blood specimen (specimen) 06/23/2020 6:01 AM CDT 06/23/2020 6:01 AM CDT us Harlan Salamanca MD LAB BLOOD ORDERABLES Final R esult [facility]3] [address] [place] [address] * (ABNORMAL) Hemoglobin and hematocrit (06/23/2020 12:12 AM CDT) Hgb 7.0(L) 11.9 - 15.5 g/dL [facility]3] Hct 20.6(L) 35.6 - 45.5 % [facility]3] Blood specimen (specimen) 06/23/2020 12:12 AM CDT 06/23/2020 12:12 AM CDT Harlan Salamanca MD LAB BLOOD ORDERABLES Final R esult Performing Organization Address [facility]/ZIP Co de Phone Number [facility]3] [address] [facility] [employer] [place], [place] [id number] * POCT glucose (06/22/2020 8:12 PM CDT) Glucose, POC 90 70 - 140 mg/dL [facility]3] Comment: For Glucose values <35 mg/dl when Hematocrit is >60 mg/dl,the test may not accurately detect significant hypoglycemia,and testing in the Laboratory should be considered if clinically indicated. Blood specimen (specimen) 06/22/2020 8:12 PM CDT 06/22/2020 8:12 PM CDT Summer Anguiano MD LAB POCT ORDERABLES - DEVIC E Final Result Performing Organization Address [facility] Co de Phone Number [facility]3] [address] [facility] [place] [address] * (ABNORMAL) Hemoglobin and hematocrit (06/22/2020 8:12 PM CDT) [facility] Hgb 7.0(L) 11.9 - 15.5 g/dL [facility]3] Hct 20.6(L) 35.6 - 45.5 % [facility]3] Blood specimen (specimen) 06/22/2020 8:12 PM CDT 06/22/2020 8:28 PM CDT Harlan Salamanca MD LAB BLOOD ORDERABLES Final R esult Performing Organization Address [facility]/ZIP Co de Phone Number [facility]3] [address] [facility] [employer] [place], [place] [id number] * POCT glucose (06/22/2020 6:42 PM CDT) Glucose, POC 83 70 - 140 mg/dL [facility]3] Comment: For Glucose values <35 mg/dl when Hematocrit is >60 mg/dl,the test may not accurately detect significant hypoglycemia,and testing in the Laboratory should be considered if clinically indicated. Blood specimen (specimen) 06/22/2020 6:42 PM CDT 06/22/2020 6:42 PM CDT Summer Anguiano MD LAB POCT ORDERABLES - DEVIC E Final Result Performing Organization Address [facility] Co de Phone Number [facility]3] [address] [facility] [place] [address] * POCT glucose (06/22/2020 1:08 PM CDT) Glucose, POC 89 70 - 140 mg/dL [facility]3] Comment: For Glucose values <35 mg/dl when Hematocrit is >60 mg/dl,the test may not accurately detect significant hypoglycemia,and testing in the Laboratory should be considered if clinically indicated. Blood specimen (specimen) 06/22/2020 1:08 PM CDT 06/22/2020 1:08 PM CDT Result [facility] Harlan Salamanca MD LAB POCT ORDERABLES - DEVICE Final Result Performing Organization Address [facility] de Phone Number [facility]3] [address] [facility] [employer] [place], [place] [phone] * (ABNORMAL) Hemoglobin and hematocrit (06/22/2020 12:33 PM CDT) Hgb 7.1(L) 11.9 - 15.5 g/dL [facility]3] Hct 20.8(L) 35.6 - 45.5 % [facility]3] Blood specimen (specimen) 06/22/2020 12:33 PM CDT 06/22/2020 12:48 PM CDT Summer Anguiano MD LAB BLOOD ORDERABLES Final Result Performing Organization Address [facility] Co de Phone Number [facility]3] [address] [facility] [place] [address] * POCT glucose (06/22/2020 9:07 AM CDT) Glucose, POC 79 70 - 140 mg/dL [facility]3] Comment: For Glucose values <35 mg/dl when Hematocrit is >60 mg/dl,the test may not accurately detect significant hypoglycemia,and testing in the Laboratory should be considered if clinically indicated. Blood specimen (specimen) 06/22/2020 9:07 AM CDT 06/22/2020 9:07 AM CDT us Harlan Salamanca MD LAB POCT ORDERABLES - DEVICE Final Result [facility]3] [address] Department [place] [address] * eGFR (06/22/2020 3:52 AM CDT) eGFR 93 mL/min/1.7 3 m2 [facility]3] Comment: Interpretive Data Reference Interval Normal ?>/= [...] MD LAB BLOOD ORDERABLES Final R esult [facility]3] [address] Department [place] [address] * (ABNORMAL) Differential, auto (06/22/2020 3:52 AM CDT) Neutrophil abs 6.3 1.7 - 6.5 K/cumm [facility]3] Imm gran abs 0.4(H) 0.0 - 0.1 K/cumm [facility]3] Lymphocyte abs 1.5 0.8 - 3.3 K/cumm [facility]3] Monocyte abs 0.4 0.2 - 0.8 K/cumm [facility]3] Eosinophil abs 0.1 0.0 - 0.5 K/cumm [facility]3] Basophil abs 0.0 0.0 - 0.1 K/cumm [facility]3] Neutrophil pct 71.7 % [facility]3] Comment: Interpretive Data Percent cell count reference ranges are not reported, since discordance with absolute values may lead to misinterpretation of CBC data. Current Interpretive Data was last revised on 2017. Imm gran pct 4.8 % [facility]3] Comment: Interpretive Data Percent cell count reference ranges are not reported, since discordance with absolute values may lead to misinterpretation of CBC data. Current Interpretive Data was last revised on 2017. Lymphocyte pct 17.0 % [facility]3] Comment: Interpretive Data Percent cell count reference ranges are not reported, since discordance with absolute values may lead to misinterpretation of CBC data. Current Interpretive Data was last revised on 2017. Monocyte pct 4.6 % [facility]3] Comment: Interpretive Data Percent cell count reference ranges are not reported, since discordance with absolute values may lead to misinterpretation of CBC data. Current Interpretive Data was last revised on 2017. Eosinophil pct 1.4 % [facility]3] Comment: Interpretive Data Percent cell count reference ranges are not reported, since discordance with absolute values may lead to misinterpretation of CBC data. Current Interpretive Data was last revised on 2017. Basophil pct 0.5 % [facility]3] Comment: Interpretive Data Percent cell count reference ranges are not reported, since discordance with absolute values may lead to misinterpretation of CBC data. Current Interpretive Data was last revised on 2017. Blood specimen (specimen) 06/22/2020 3:52 AM CDT 06/22/2020 3:57 AM CDT us Summer Anguiano MD LAB BLOOD ORDERABLES Final Result [facility]3] [address] Department [place] [address] * Renal function panel (06/22/2020 3:52 AM CDT) Sodium 137 135 - 145 mmol/L [facility] [facility]3] Potassium, pl 3.7 3.3 - 4.9 mmol/L [facility]3] Chloride 97 97 - 110 mmol/L [facility]3] CO2 29 22 - 32 mmol/L [facility]3] Anion gap 11 2 - 15 mmol/L [facility]3] BUN 18 8 - 25 mg/dL [facility]3] Creatinine 0.65 0.60 - 1.10 mg/dL [facility]3] Glucose 102 70 - 199 mg/dL [facility]3] Comment: Interpretive Data Fasting glucose >/= 126 [...] 2017. Calcium 8.8 8.5 - 10.3 mg/dL [facility]3] Phosphorus, pl 2.6 2.3 - 4.5 mg/dL [facility]3] Albumin 3.6 3.5 - 5.0 g/dL [facility]3] Blood specimen (specimen) 06/22/2020 3:52 AM CDT 06/22/2020 3:57 AM CDT Spenser Ascencio MD LAB BLOOD ORDERABLES Final R esult Performing Organization Address [facility] Co de Phone Number [facility]3] [address] [place] [address] * (ABNORMAL) CBC with auto differential (06/22/2020 3:52 AM CDT) [facility] WBC 8.8 3.8 - 9.9 K/cumm [facility]3] Hgb 8.5(L) 11.9 - 15.5 g/dL [facility]3] Hct 25.1(L) 35.6 - 45.5 % [facility]3] Plt 195 150 - 400 K/cumm [facility]3] MPV 9.7 9.1 - 12.3 fL [facility]3] RBC 2.78(L) 3.90 - 5.20 M/cumm [facility]3] MCV 90.3 81.3 - 96.4 fL [facility]3] MCH 30.6 27.1 - 33.3 pg [facility]3] MCHC 33.9 32.3 - 35.7 g/dL [facility]3] RDW CV 15.8(H) 11.1 - 14.9 % [facility]3] RDW SD 51.8(H) 35.7 - 48.1 fL [facility]3] NRBC abs 0.00 0.00 - 0.01 K/cumm [facility]3] Blood specimen (specimen) 06/22/2020 3:52 AM CDT 06/22/2020 3:57 AM CDT us Summer Anguiano MD LAB BLOOD ORDERABLES Final Result Performing Organization Address City/[facility]/ZIP Co de Phone Number [facility]3] [address] Department Physician [place] [address] * eGFR (06/21/2020 10:21 PM CDT) eGFR 93 mL/min/1.7 3 m2 [facility]3] Comment: Interpretive Data Reference Interval Normal ?>/= [...] MD LAB BLOOD ORDERABLES Final R esult [facility]3] [address] Department [place] [address] * (ABNORMAL) Renal function panel (06/21/2020 10:21 PM CDT) Pathologist [facility] Sodium 137 135 - 145 mmol/L [facility]3] Potassium, pl 4.0 3.3 - 4.9 mmol/L [facility]3] Chloride 98 97 - 110 mmol/L [facility]3] CO2 33(H) 22 - 32 mmol/L [facility]3] Anion gap 6 2 - 15 mmol/L [facility]3] BUN 19 8 - 25 mg/dL [facility]3] Creatinine 0.65 0.60 - 1.10 mg/dL [facility]3] Glucose 162 70 - 199 mg/dL [facility]3] Comment: Interpretive Data Fasting glucose >/= 126 [...] 2017. Calcium 8.9 8.5 - 10.3 mg/dL [facility]3] Phosphorus, pl 2.9 2.3 - 4.5 mg/dL [facility]3] Albumin 3.7 3.5 - 5.0 g/dL [facility]3] Blood specimen (specimen) 06/21/2020 10:21 PM CDT 06/21/2020 10:31 PM CDT Spenser Ascencio MD LAB BLOOD ORDERABLES Final R esult Performing Organization Address City/[facility]/ZIP Co de Phone Number [facility])[3] [address] [place] [address] * Lactate (06/21/2020 10:21 PM CDT) Lactate 1.1 0.7 - 2.0 mmol/L [facility]3] Blood specimen (specimen) 06/21/2020 10:21 PM CDT 06/21/2020 10:27 PM CDT Spenser Ascencio MD LAB BLOOD ORDERABLES Final R esult [facility]3] [address] Department [place] [place] [address] * (ABNORMAL) CBC without differential (06/21/2020 10:21 PM CDT) [facility] WBC 9.9 3.8 - 9.9 K/cumm [facility]3] Hgb 8.7(L) 11.9 - 15.5 g/dL [facility]3] Hct 25.5(L) 35.6 - 45.5 % [facility]3] Plt 176 150 - 400 K/cumm [facility]3] MPV 9.9 9.1 - 12.3 fL [facility]3] RBC 2.80(L) 3.90 - 5.20 M/cumm [facility]3] MCV 91.1 81.3 - 96.4 fL [facility]3] MCH 31.1 27.1 - 33.3 pg [facility]3] MCHC 34.1 32.3 - 35.7 g/dL [facility]3] RDW CV 15.8(H) 11.1 - 14.9 % [facility]3] RDW SD 52.6(H) 35.7 - 48.1 fL [facility]3] NRBC abs 0.00 0.00 - 0.01 K/cumm [facility]3] Blood specimen (specimen) 06/21/2020 10:21 PM CDT 06/21/2020 10:31 PM CDT us Spenser Ascencio MD LAB BLOOD ORDERABLES Final R esult [facility]3] [address] Department [place] [address] * (ABNORMAL) POCT glucose (06/21/2020 9:23 PM CDT) [facility] Glucose, POC 196(H) 70 - 140 mg/dL [facility]3] Comment: For Glucose values <35 mg/dl when Hematocrit is >60 mg/dl,the test may not accurately detect significant hypoglycemia,and testing in the Laboratory should be considered if clinically indicated. Blood specimen (specimen) 06/21/2020 9:23 PM CDT 06/21/2020 9:23 PM CDT us Summer Anguiano MD LAB POCT ORDERABLES - DEVIC E Final Result [facility] [address] Department [place] [address] * CT Abdomen Pelvis W Contrast (06/21/2020 [...] the celiac axis. Critical findings communicated by ad to Dr. Ascencio at 2157 hours. 2. [...] of this study was provided by a [facility] Radiologist. There is no significant discrepancy. Electronically [...] of this study was provided by a [facility] Radiologist. There is no significant discrepancy. Electronically signed by: Tomi Urena M.D. Spenser Ascencio MD IM CT PROCEDURES Final Resu lt * (ABNORMAL) Hemoglobin and hematocrit (06/21/2020 7:08 PM CDT) Hgb 8.2(L) 11.9 - 15.5 g/dL [facility]3] Hct 24.2(L) 35.6 - 45.5 % [facility]3] Blood specimen (specimen) 06/21/2020 7:08 PM CDT 06/21/2020 7:08 PM CDT Result [facility] Summer Anguiano MD LAB BLOOD ORDERABLES Final Result Performing Organization Address [facility] Co de Phone Number [facility]3] [address] [facility] [place] [address] * POCT glucose (06/21/2020 4:35 PM CDT) Glucose, POC 136 70 - 140 mg/dL [facility]3] Comment: For Glucose values <35 mg/dl when Hematocrit is >60 mg/dl,the test may not accurately detect significant hypoglycemia,and testing in the Laboratory should be considered if clinically indicated. Glucose comment 1 Follow Protocol [facility]3] Blood specimen (specimen) 06/21/2020 4:35 PM CDT 06/21/2020 4:35 PM CDT Result [facility] Summer Anguiano MD LAB POCT ORDERABLES - DEVIC E Final Result Performing Organization Address [facility] de Phone Number [facility]3] [address] [facility] [place] [address] * POCT glucose (06/21/2020 1:36 PM CDT) Glucose, POC 111 70 - 140 mg/dL [facility]3] Comment: For Glucose values <35 mg/dl when Hematocrit is >60 mg/dl,the test may not accurately detect significant hypoglycemia,and testing in the Laboratory should be considered if clinically indicated. Blood specimen (specimen) 06/21/2020 1:36 PM CDT 06/21/2020 1:36 PM CDT Result [facility] Summer Anguiano MD LAB POCT ORDERABLES - DEVIC E Final Result Performing Organization Address [facility] Co de Phone Number [facility]3] [address] Department [place] [address] * Transfuse RBC (06/21/2020 12:41 PM CDT) Blood specimen (specimen) us Preeti Mays NP BLOOD TRANSFUSIO N ORDERABLES Edited Result - Final [facility]3] [address] [place] [address] * Transfuse RBC: 1 Units (06/21/2020 12:41 PM CDT) Blood specimen (specimen) us Preeti Mays NP BLOOD TRANSFUSIO N ORDERABLES Edited Result - Final * Type and screen (06/21/2020 6:56 AM CDT) ABO Rh O Positive [facility]3] Veronica, indirect Negative [facility]3] Blood specimen (specimen) 06/21/2020 6:56 AM CDT 06/21/2020 7:02 AM CDT Narrative [facility]3] - 06/21/2020 7:40 AM CDT Has the patient had Daratumumab or Isatuximab in the past 6 months?->Unknown us Preeti Mays NP LAB BLOOD BANK T EST ORDERABLES Final Result [facility]3] [address] [facility] [employer] [place], [place] [id number] * Prepare RBC: 1 Units (06/21/2020 6:41 AM CDT) Product code [id number] [facility]3] Unit Number [id number] [facility] Product Blood Type OPOS [facility]3] Dispense Status PRESUMED TRANSFUSED [facility]3] Blood specimen (specimen) 06/21/2020 6:41 AM CDT Narrative [facility]3] - 06/22/2020 10:15 AM CDT Are special requirements needed? (all products are leukoreduced)->No Date required:-[id number] LRRBC # of [id number] Reasons:-Hgb <7 g/dL} Preeti Mays NP BLOOD BANK PRODU CT ORDERABLES Final Result Performing Organization Address [facility] Co de Phone Number [facility]3] [address] Department of Laboratories [place], [place] [id number] * POCT glucose (06/21/2020 5:59 AM CDT) [facility] Glucose, POC 123 70 - 140 mg/dL [facility]3] Comment: For Glucose values <35 mg/dl when Hematocrit is >60 mg/dl,the test may not accurately detect significant hypoglycemia,and testing in the Laboratory should be considered if clinically indicated. Blood specimen (specimen) 06/21/2020 5:59 AM CDT 06/21/2020 5:59 AM CDT us Summer Anguiano MD LAB POCT ORDERABLES - DEVIC E Final Result Performing Organization Address [facility] de Phone Number [facility]3] [address] Department of Laboratories [place], [place] [id number] * Differential, auto (06/21/2020 5:58 AM CDT) [facility] Neutrophil abs 4.7 1.7 - 6.5 K/cumm [facility]3] Imm gran abs 0.1 0.0 - 0.1 K/cumm [facility]3] Lymphocyte abs 1.5 0.8 - 3.3 K/cumm [facility]3] Monocyte abs 0.4 0.2 - 0.8 K/cumm [facility]3] Eosinophil abs 0.2 0.0 - 0.5 K/cumm [facility]3] Basophil abs 0.0 0.0 - 0.1 K/cumm [facility]3] Neutrophil pct 68.2 % [facility]3] Comment: Interpretive Data Percent cell count reference ranges are not reported, since discordance with absolute values may lead to misinterpretation of CBC data. Current Interpretive Data was last revised on 2017. Imm gran pct 1.4 % [facility]3] Comment: Interpretive Data Percent cell count reference ranges are not reported, since discordance with absolute values may lead to misinterpretation of CBC data. Current Interpretive Data was last revised on 2017. Lymphocyte pct 21.7 % [facility]3] Comment: Interpretive Data Percent cell count reference ranges are not reported, since discordance with absolute values may lead to misinterpretation of CBC data. Current Interpretive Data was last revised on 2017. Monocyte pct 5.8 % [facility]3] Comment: Interpretive Data Percent cell count reference ranges are not reported, since discordance with absolute values may lead to misinterpretation of CBC data. Current Interpretive Data was last revised on 2017. Eosinophil pct 2.5 % [facility]3] Comment: Interpretive Data Percent cell count reference ranges are not reported, since discordance with absolute values may lead to misinterpretation of CBC data. Current Interpretive Data was last revised on 2017. Basophil pct 0.4 % [facility]3] Comment: Interpretive Data Percent cell count reference ranges are not reported, since discordance with absolute values may lead to misinterpretation of CBC data. Current Interpretive Data was last revised on 2017. Blood specimen (specimen) 06/21/2020 5:58 AM CDT 06/21/2020 6:12 AM CDT us Summer Anguiano MD LAB BLOOD ORDERABLES Final Result [facility]3] [address] Department [place] [address] * (ABNORMAL) CBC with auto differential (06/21/2020 5:58 AM CDT) WBC 6.9 3.8 - 9.9 K/cumm [facility]3] Hgb 6.1(C) 11.9 - 15.5 g/dL [facility]3] Comment:Critical result call ed to and read back by CARLOS TUBBS (RN) on 06 21 2020 at 0631 to Sylvain Florentin. Hct 18.8(L) 35.6 - 45.5 % [facility]3] Plt 191 150 - 400 K/cumm [facility]3] MPV 10.0 9.1 - 12.3 fL [facility]3] RBC 2.00(L) 3.90 - 5.20 M/cumm [facility]3] MCV 94.0 81.3 - 96.4 fL [facility]3] MCH 30.5 27.1 - 33.3 pg [facility]3] MCHC 32.4 32.3 - 35.7 g/dL [facility]3] RDW CV 15.0(H) 11.1 - 14.9 % [facility]3] RDW SD 51.3(H) 35.7 - 48.1 fL [facility]3] NRBC abs 0.00 0.00 - 0.01 K/cumm [facility]3] Blood specimen (specimen) 06/21/2020 5:58 AM CDT 06/21/2020 6:12 AM CDT us Summer Anguiano MD LAB BLOOD ORDERABLES Final Result Performing Organization Address City/[facility]/ZIP Co de Phone Number [facility]3] [address] Department [place] [address] * (ABNORMAL) POCT glucose (06/20/2020 8:21 PM CDT) Glucose, POC 150(H) 70 - 140 mg/dL [facility]3] Comment: For Glucose values <35 mg/dl when Hematocrit is >60 mg/dl,the test may not accurately detect significant hypoglycemia,and testing in the Laboratory should be considered if clinically indicated. Blood specimen (specimen) 06/20/2020 8:21 PM CDT 06/20/2020 8:21 PM CDT Summer Anguiano MD LAB POCT ORDERABLES - DEVIC E Final Result [facility]3] [address] [facility] [place] [place] [address] * (ABNORMAL) POCT glucose (06/20/2020 4:46 PM CDT) Glucose, POC 147(H) 70 - 140 mg/dL [facility]3] Comment: For Glucose values <35 mg/dl when Hematocrit is >60 mg/dl,the test may not accurately detect significant hypoglycemia,and testing in the Laboratory should be considered if clinically indicated. Glucose comment 1 Follow Protocol [facility]3] Blood specimen (specimen) 06/20/2020 4:46 PM CDT 06/20/2020 4:46 PM CDT Summer Anguiano MD LAB POCT ORDERABLES - DEVIC E Final Result Performing Organization Address [facility] Co de Phone Number [facility]3] [address] [place] [address] * (ABNORMAL) POCT glucose (06/20/2020 11:27 AM CDT) Glucose, POC 154(H) 70 - 140 mg/dL [facility]3] Comment: For Glucose values <35 mg/dl when Hematocrit is >60 mg/dl,the test may not accurately detect significant hypoglycemia,and testing in the Laboratory should be considered if clinically indicated. Glucose comment 1 Follow Protocol [facility]3] Blood specimen (specimen) 06/20/2020 11:27 AM CDT 06/20/2020 11:27 AM CDT us Summer Anguiano MD LAB POCT ORDERABLES - DEVIC E Final Result Performing Organization Address City/[facility]/ZIP Co de Phone Number [facility]3] [address] [place] [address] * (ABNORMAL) POCT glucose (06/20/2020 6:36 AM CDT) Glucose, POC 165(H) 70 - 140 mg/dL [facility]3] Comment: For Glucose values <35 mg/dl when Hematocrit is >60 mg/dl,the test may not accurately detect significant hypoglycemia,and testing in the Laboratory should be considered if clinically indicated. Blood specimen (specimen) 06/20/2020 6:36 AM CDT 06/20/2020 6:36 AM CDT us Summer Anguiano MD LAB POCT ORDERABLES - DEVIC E Final Result [facility]3] [address] Department [place] [address] * (ABNORMAL) Differential, auto (06/20/2020 6:03 AM CDT) Neutrophil abs 7.0(H) 1.7 - 6.5 K/cumm [facility]3] Imm gran abs 0.1 0.0 - 0.1 K/cumm [facility]3] Lymphocyte abs 0.9 0.8 - 3.3 K/cumm [facility]3] Monocyte abs 0.3 0.2 - 0.8 K/cumm [facility]3] Eosinophil abs 0.0 0.0 - 0.5 K/cumm [facility]3] Basophil abs 0.0 0.0 - 0.1 K/cumm [facility]3] Neutrophil pct 84.2 % [facility]3] Comment: Interpretive Data Percent cell count reference ranges are not reported, since discordance with absolute values may lead to misinterpretation of CBC data. Current Interpretive Data was last revised on 2017. Imm gran pct 0.8 % [facility]3] Comment: Interpretive Data Percent cell count reference ranges are not reported, since discordance with absolute values may lead to misinterpretation of CBC data. Current Interpretive Data was last revised on 2017. Lymphocyte pct 10.7 % [facility]3] Comment: Interpretive Data Percent cell count reference ranges are not reported, since discordance with absolute values may lead to misinterpretation of CBC data. Current Interpretive Data was last revised on 2017. Monocyte pct 4.0 % [facility]3] Comment: Interpretive Data Percent cell count reference ranges are not reported, since discordance with absolute values may lead to misinterpretation of CBC data. Current Interpretive Data was last revised on 2017. Eosinophil pct 0.1 % [facility]3] Comment: Interpretive Data Percent cell count reference ranges are not reported, since discordance with absolute values may lead to misinterpretation of CBC data. Current Interpretive Data was last revised on 2017. Basophil pct 0.2 % [facility]3] Comment: Interpretive Data Percent cell count reference ranges are not reported, since discordance with absolute values may lead to misinterpretation of CBC data. Current Interpretive Data was last revised on 2017. Blood specimen (specimen) 06/20/2020 6:03 AM CDT 06/20/2020 6:48 AM CDT us Arley Peña MD LAB BLOOD ORDERABLES Final Resu lt [facility]3] [address] Department [place] [address] * (ABNORMAL) CBC with auto differential (06/20/2020 6:03 AM CDT) WBC 8.4 3.8 - 9.9 K/cumm [facility]3] Hgb 7.0(L) 11.9 - 15.5 g/dL [facility]3] Comment:Hemoglobin delta due to surgical procedure. Amputation yesterday Hct 20.6(L) 35.6 - 45.5 % [facility]3] Plt 182 150 - 400 K/cumm [facility]3] MPV 10.3 9.1 - 12.3 fL [facility]3] RBC 2.24(L) 3.90 - 5.20 M/cumm [facility]3] MCV 92.0 81.3 - 96.4 fL [facility]3] MCH 31.3 27.1 - 33.3 pg [facility]3] MCHC 34.0 32.3 - 35.7 g/dL [facility]3] RDW CV 14.7 11.1 - 14.9 % [facility]3] RDW SD 49.3(H) 35.7 - 48.1 fL [facility]3] NRBC abs 0.00 0.00 - 0.01 K/cumm [facility]3] Blood specimen (specimen) 06/20/2020 6:03 AM CDT 06/20/2020 6:48 AM CDT Result [facility] Arley Peña MD LAB BLOOD ORDERABLES Final Resu lt Performing Organization Address [facility]/ZIP Co de Phone Number [facility]3] [address] [facility] [place] [address] * (ABNORMAL) POCT glucose (06/19/2020 10:24 PM CDT) Glucose, POC 210(H) 70 - 140 mg/dL [facility]3] Comment: For Glucose values <35 mg/dl when Hematocrit is >60 mg/dl,the test may not accurately detect significant hypoglycemia,and testing in the Laboratory should be considered if clinically indicated. Blood specimen (specimen) 06/19/2020 10:24 PM CDT 06/19/2020 10:24 PM CDT Result [facility] Summer Anguiano MD LAB POCT ORDERABLES - DEVIC E Final Result Performing Organization Address [facility] Co de Phone Number [facility]3] [address] [facility] [place] [address] * POCT glucose (06/19/2020 8:03 PM CDT) Glucose, POC 82 70 - 140 mg/dL [facility]3] Comment: For Glucose values <35 mg/dl when Hematocrit is >60 mg/dl,the test may not accurately detect significant hypoglycemia,and testing in the Laboratory should be considered if clinically indicated. Blood specimen (specimen) 06/19/2020 8:03 PM CDT 06/19/2020 8:03 PM CDT Result [facility] Summer Anguiano MD LAB POCT ORDERABLES - DEVIC E Final Result Performing Organization Address [facility]/ZIP Co de Phone Number [facility]3] [address] [place] [address] * Surgical pathology (06/19/2020 6:38 PM CDT) Tissue (Amputation non-tramatic) 06/19/2020 6:38 PM CDT Narrative PATHOLOGY [facility] - 07/03/2020 1:15 PM CDT [address] ??[address] Tele: ?? Marti Mueller MD - Public Transit Bus Drivercontinuous improvement coordinator PATHOLOGY REPORT Patient Name: ??IRIS GIL Address: ??[address] [place] [address] ??[id number] Gender: ??F : ??1955 (Age: 65) Service: ??Medical Location: ??[facility], ?? Hospital #: ??[id number] Patient Type: ?? Inpatient Accession #: ? [id number] Taken: ? 06/19/2020 Received ? 06/22/2020 Reported: ? 07/03/2020 Physician(s): ? Dr. Arley Peña M.D. Zeke Puente MD DIAGNOSIS: Extremity, lower, left, above-knee amputation: ? -Bone, with focal minimal chronic inflammation -Skin, with parakeratosis, fibrosis, minimal inflammation, and reactive changes -Vessels, with calcified atherosclerotic plaque -Viable skin and soft tissue margin as/07/03/2020 13:15 Examining Pathologist: Report Reviewed and Electronically Signed By ??Daniel Pool M.D. SPECIMEN TYPE: A: LEFT ABOVEKNEE AMPUTATION CLINICAL IMPRESSION AND HISTORY: Peripheral vascular disease. ??Per EMR - peripheral vascular disease left lower extremity, osteomyelitis of left heel. GROSS DESCRIPTION: Received wrapped in a biohazard bag without fixative and labeled Iris Gil and left above-knee amputation is an [id number] amputated left leg measures 54.3 cm (length), [...] anterior artery is stenosed by yellow plaque. ??[employer] sections are submitted as follows: ??A1 - bone marrow from bony margin of resection; A2 - popliteal, anterior and posterior tibial vessels; A3 - black-green area at heel; A4-A5 - bone of heel deep to black-green area; A6 - skin and soft tissue at margin of resection. ??Cassettes A2, A4 and A5 are submitted for decalcification. [facility]/07/01/2020 13:59 ? [facility] MICROSCOPIC DESCRIPTION: Microscopic examination supports the above captioned diagnosis. ??Section submitted as bone marrow from bone resection margin appears unremarkable. Clerical Data Follows A; [id number], [id number] REPORT IMAGES AND/OR SCANNED DOCUMENTS ONLY VIEWABLE IN PDF FORMAT The immunohistochemical test(s) cited in this report, if any, was developed and its performance characteristics determined by [facility] Pathology Department. ??It has not been cleared or approved by the U.S. Food and Drug Administration. ??The FDA has determined that such clearance or approval is not necessary. ??This test is used for clinical purposes. ??It should not be regarded as investigational or for research. ??[facility] Laboratory is certified under the Clinical Laboratory Improvement Amendments of 1988 (CLIA) as qualified to perform high complexity testing. ??Immunostains were performed on formalin-fixed paraffin embedded tissue using a polymer diaminobenzidine chromogen detection system. Antibodies used may include clone SP1 (rabbit monoclonal, estrogen receptor), clone 1E2 (rabbit monoclonal progesterone receptor), Ki-67 (rabbit monoclonal, 30-9), and [id number] (rabbit polyclonal, c-kit). us Arley Peña MD LAB PATHOLOGY ORDERABLES Final Result PATHOLOGY [facility] Laboratory Receiving [address] [place] [address] * POCT glucose (06/19/2020 5:02 PM CDT) Glucose, POC 71 70 - 140 mg/dL [facility]3] Comment: For Glucose values <35 mg/dl when Hematocrit is >60 mg/dl,the test may not accurately detect significant hypoglycemia,and testing in the Laboratory should be considered if clinically indicated. Blood specimen (specimen) 06/19/2020 5:02 PM CDT 06/19/2020 5:02 PM CDT Summer Anguiano MD LAB POCT ORDERABLES - DEVIC E Final Result Performing Organization Address [facility] Co de Phone Number [facility]3] [address] [facility] Physician Practice [place] [address] * (ABNORMAL) POCT glucose (06/19/2020 4:54 PM CDT) Glucose, POC 65(L) 70 - 140 mg/dL [facility]3] Comment: For Glucose values <35 mg/dl when Hematocrit is >60 mg/dl,the test may not accurately detect significant hypoglycemia,and testing in the Laboratory should be considered if clinically indicated. Blood specimen (specimen) 06/19/2020 4:54 PM CDT 06/19/2020 4:54 PM CDT Summer Anguiano MD LAB POCT ORDERABLES - DEVIC E Final Result Performing Organization Address [facility] Co de Phone Number [facility]3] [address] [facility] Physician [place] [address] * Vancomycin level trough Please draw trough at this specific time. (06/19/2020 3:32 PM CDT) Pathologist [facility] Vancomycin trough 15.7 10.0 - 20.0 mcg/mL [facility]3] Comment: Interpretive Data ?Therapeutic Range: Uncomplicated skin and soft tissue infections: 10-20 mcg/mL All other infections: 15-20 mcg/mL Current Interpretive Data was last revised on 2020. Blood specimen (specimen) 06/19/2020 3:32 PM CDT 06/19/2020 3:[address] [facility] - 06/19/2020 3:59 PM CDT Please draw trough at this specific time. Summer Anguiano MD LAB BLOOD ORDERABLES Final Result Performing Organization Address [facility] de Phone Number [facility])[3] [address] [facility] [employer] [place], [place] [id number] * POCT glucose (06/19/2020 11:34 AM CDT) Glucose, POC 83 70 - 140 mg/dL [facility]3] Comment: For Glucose values <35 mg/dl when Hematocrit is >60 mg/dl,the test may not accurately detect significant hypoglycemia,and testing in the Laboratory should be considered if clinically indicated. Blood specimen (specimen) 06/19/2020 11:34 AM CDT 06/19/2020 11:34 AM CDT Summer Anguiano MD LAB POCT ORDERABLES - DEVIC E Final Result Performing Organization Address [facility] de Phone Number [facility]3] [address] [facility] [place] [address] * (ABNORMAL) Urinalysis, microscopic only (06/19/2020 8:14 AM CDT) WBC, ur 21-50(A) 0 - 5 /HPF [facility]3] RBC, ur 21-50(A) 0 - 2 /HPF [facility]3] Epithelial cells, squamous, ur 1-5 0 - 5 /HPF [facility]3] Bacteria, ur 4+(A) [facility]3] Yeast, ur 3+(A) [facility]3] Culture Reflex Comment Reflex to urine culture will be performed. [facility]3] Urine 06/19/2020 8:14 AM CDT 06/19/2020 8:14 AM CDT Tanisha Bundy MD LAB URINE ORDERABLES Final Result Performing Organization Address City/[facility]/ZIP Co de Phone Number ASHLEIGH CONTRERAS [address] Department [place] [address] * (ABNORMAL) Urinalysis reflex to microscopic and culture Urine (06/19/2020 8:14 AM CDT) Color, ur Yellow Yellow [facility]3] Clarity, ur Turbid(A) Clear [facility]3] Specific gravity, ur 1.015 1.010 - 1.025 [facility]3] pH, urine 6.0 [facility]3] Protein, ur ql 1+(A) Negative [facility]3] Glucose, ur ql Negative Negative [facility]3] Ketones, ur Negative Negative [facility]3] Bilirubin, ur Negative Negative [facility]3] Blood, ur 2+(A) Negative [facility]3] Urobilinogen, ur <2.0 <2.0 mg/dL [facility]3] Nitrite, ur Negative Negative [facility]3] Leukocyte esterase, ur 3+(A) Negative [facility]3] UA reflex comment Reflex to microscopic UA will be performed. [facility]3] Urine 06/19/2020 8:14 AM CDT 06/19/2020 8:14 AM CDT Narrative [facility]3] - 06/19/2020 9:09 AM CDT ?? Urine pH is affected by diet, medications, systemic acid-base disturbances, and renal tubular function. ??pH may affect urinary stone formation. ??For example, urine pH below 6.0 may help reduce the tendency for calcium phosphate stones and pH greater than 6.0 may reduce the tendency for uric acid stone formation. Source: [facility] [employer]. Last revised 03-23-2017 us Tanisha Bundy MD LAB MICROBIOLOGY - GENERAL ORDERABLES Final Result Performing Organization Address City/[facility]/ZIP Co de Phone Number ASHLEIGH CONTRERAS [address] [place] [address] * (ABNORMAL) Urine culture Urine (06/19/2020 8:14 AM CDT) Report Final Report: Growth indicates contamination with gram-positive alana. (.) [facility]3] Organism GROWTH INDICATES CONTAMINATION WITH GRAM-POS ALANA [facility]3] Urine 06/19/2020 8:14 AM CDT 06/19/2020 9:17 AM CDT Narrative [facility]3] - 06/20/2020 9:41 AM CDT Urine culture reflexed based upon urinalysis results. us Tanisha Bundy MD LAB MICROBIOLOGY - GENERAL ORDERABLES Final Result [facility]3] [address] Department [place] [address] * COVID-19 Coronavirus antigen Nasopharyngeal (06/19/2020 8:04 AM CDT) COVID-19 Ag Presumptive Negative Presumptive Negative [facility]3] Comment: Interpretive data: Testing was performed under Emergency Use Authorization using the [employer] Veritor System for detection of SARS-CoV-2 nucleocapsid [...] modified April 2020. First COVID-19 test? Unknown [facility]3] Employeed in healthcare? Unknown [facility]3] status? Unknown [facility]3] Group care resident? Unknown [facility]3] Hospitalized? Unknown [facility]3] Is patient in ICU? Unknown [facility]3] Symptomatic as defined by CDC? Unknown [facility]3] Nasopharyngeal 06/19/2020 8: 04 AM CDT 06/19/2020 8:36 AM CDT Summer Anguiano MD LAB MICROBIOLOGY - GENERAL ORDERABLES Final Result Performing Organization Address [facility] Co de Phone Number [facility])[3] [address] Department [place] [address] * (ABNORMAL) POCT glucose (06/19/2020 5:56 AM CDT) Glucose, POC 206(H) 70 - 140 mg/dL [facility]3] Comment: For Glucose values <35 mg/dl when Hematocrit is >60 mg/dl,the test may not accurately detect significant hypoglycemia,and testing in the Laboratory should be considered if clinically indicated. Blood specimen (specimen) 06/19/2020 5:56 AM CDT 06/19/2020 5:56 AM CDT Summer Anguiano MD LAB POCT ORDERABLES - DEVIC E Final Result Performing Organization Address [facility] de Phone Number [facility]3] [address] Department [place] [address] * eGFR (06/19/2020 5:50 AM CDT) eGFR 94 mL/min/1.7 3 m2 [facility]3] Comment: Interpretive Data Reference Interval Normal ?>/= [...] Anguiano MD LAB BLOOD ORDERABLES Final Result [facility]3] [address] Department [place] [address] * Basic metabolic panel (06/19/2020 5:50 AM CDT) Sodium 135 135 - 145 mmol/L [facility]3] Potassium, pl 3.9 3.3 - 4.9 mmol/L [facility]3] Comment:Hemolyzed; potassium value may be falsely elevated by as much as 0.3 - 0.5 mmol/L. Suggest redraw and reanalysis Chloride 97 97 - 110 mmol/L [facility]3] CO2 30 22 - 32 mmol/L [facility]3] Anion gap 8 2 - 15 mmol/L [facility]3] BUN 16 8 - 25 mg/dL [facility]3] Creatinine 0.63 0.60 - 1.10 mg/dL [facility]3] Glucose 184 70 - 199 mg/dL [facility]3] Comment: Interpretive Data Fasting glucose >/= 126 [...] 2017. Calcium 8.6 8.5 - 10.3 mg/dL [facility]3] Blood specimen (specimen) 06/19/2020 5:50 AM CDT 06/19/2020 6:13 AM CDT Summer Anguiano MD LAB BLOOD ORDERABLES Final Result Performing Organization Address [facility] de Phone Number [facility])[3] [address] [employer] [place], [place] [id number] * (ABNORMAL) POCT glucose (06/18/2020 8:59 PM CDT) Glucose, POC 251(H) 70 - 140 mg/dL [facility]3] Comment: For Glucose values <35 mg/dl when Hematocrit is >60 mg/dl,the test may not accurately detect significant hypoglycemia,and testing in the Laboratory should be considered if clinically indicated. Blood specimen (specimen) 06/18/2020 8:59 PM CDT 06/18/2020 8:59 PM CDT Summer Anguiano MD LAB POCT ORDERABLES - DEVIC E Final Result Performing Organization Address [facility] Co de Phone Number [facility])[3] [address] Department [place] [address] * (ABNORMAL) POCT glucose (06/18/2020 4:52 PM CDT) Glucose, POC 210(H) 70 - 140 mg/dL [facility]3] Comment: For Glucose values <35 mg/dl when Hematocrit is >60 mg/dl,the test may not accurately detect significant hypoglycemia,and testing in the Laboratory should be considered if clinically indicated. Blood specimen (specimen) 06/18/2020 4:52 PM CDT 06/18/2020 4:52 PM CDT Summer Anguiano MD LAB POCT ORDERABLES - DEVIC E Final Result Performing Organization Address [facility] Co de Phone Number [facility])[3] [address] [facility] [place] [address] * (ABNORMAL) POCT glucose (06/18/2020 11:27 AM CDT) Glucose, POC 177(H) 70 - 140 mg/dL [facility]3] Comment: For Glucose values <35 mg/dl when Hematocrit is >60 mg/dl,the test may not accurately detect significant hypoglycemia,and testing in the Laboratory should be considered if clinically indicated. Blood specimen (specimen) 06/18/2020 11:27 AM CDT 06/18/2020 11:27 AM CDT Summer Anguiano MD LAB POCT ORDERABLES - DEVIC E Final Result Performing Organization Address [facility] de Phone Number [facility])[3] [address] [place] [address] * (ABNORMAL) POCT glucose (06/18/2020 6:23 AM CDT) Glucose, POC 181(H) 70 - 140 mg/dL [facility]3] Comment: For Glucose values <35 mg/dl when Hematocrit is >60 mg/dl,the test may not accurately detect significant hypoglycemia,and testing in the Laboratory should be considered if clinically indicated. Blood specimen (specimen) 06/18/2020 6:23 AM CDT 06/18/2020 6:23 AM CDT Result [facility] Summer Anguiano MD LAB POCT ORDERABLES - DEVIC E Final Result Performing Organization Address [facility] de Phone Number [facility])[3] [address] [place] [address] * (ABNORMAL) T4, free (06/18/2020 5:43 AM CDT) Pathologist [facility] Free T4 0.11(L) 0.90 - 1.70 ng/dL [facility]3] Blood specimen (specimen) 06/18/2020 5:43 AM CDT 06/18/2020 6:23 AM CDT Narrative [facility]3] - 06/18/2020 7:18 AM CDT This test was reflexed from a TSH result. Summer Anguiano MD LAB BLOOD ORDERABLES Final Result [facility])[3] [address] [facility] [place] [address] * (ABNORMAL) TSH reflex to free T4 (06/18/2020 5:43 AM CDT) [facility] TSH 19.29(H) 0.30 - 4.20 mcIUnit/mL [facility]3] Blood specimen (specimen) 06/18/2020 5:43 AM CDT 06/18/2020 6:23 AM CDT Summer Anguiano MD LAB BLOOD ORDERABLES Final Result [facility]3] [address] [place] [address] * (ABNORMAL) Hemoglobin A1c (06/18/2020 5:43 AM CDT) [facility] Hgb A1C 8.0(H) 4.0 - 5.6 % [facility]3] Estimated Average Glucose 183 mg/dL [facility] ([facility]3] Comment: The ADA recommends reporting an estimated Average Glucose (eAG) with all Hemoglobin A1c results using the equation derived from a study of 507 normal and diabetic adults. ??Minority populations were underrepresented and children were not included. ?? (Diabetes Care 31:2337-1758, 2008). ??The eAG is not equivalent to a fasting glucose. Blood specimen (specimen) 06/18/2020 5:43 AM CDT 06/18/2020 6:23 AM CDT Summer Anguiano MD LAB BLOOD ORDERABLES Final Result Performing Organization Address [facility] Co de Phone Number [facility] ([facility])[3] [address] Department [place] [address] * (ABNORMAL) POCT glucose (06/17/2020 10:22 PM CDT) [facility] Signature Glucose, POC 270(H) 70 - 140 mg/dL [facility] Comment: For Glucose values <35 mg/dl when Hematocrit is >60 mg/dl,the test may not accurately detect significant hypoglycemia,and testing in the Laboratory should be considered if clinically indicated. Blood specimen (specimen) 06/17/2020 10:22 PM CDT 06/17/2020 10:22 PM CDT Summer Anguiano MD LAB POCT ORDERABLES - DEVIC E Final Result Performing Organization Address [facility] Co de Phone Number [facility] ([facility])[3] [address] Department [place] [address] * CTA Abdominal Aorta And Bilateral Iliofemoral [...] CONTRAST HISTORY: Left foot osteomyelitis, prior right zdpzs-kht-gmfz amputation. TECHNIQUE: CT angiography of the abdomen, [...] CONTRAST HISTORY: Left foot osteomyelitis, prior right qvmfj-zxc-etzt amputation. TECHNIQUE: CT angiography of the abdomen, [...] M.D. Electronically signed by: Madison Valle M.D. us Summer Anguiano MD IMG CT PROCEDURES Final Res ult * (ABNORMAL) POCT glucose (06/17/2020 4:51 PM CDT) Glucose, POC 167(H) 70 - 140 mg/dL [facility] Comment: For Glucose values <35 mg/dl when Hematocrit is >60 mg/dl,the test may not accurately detect significant hypoglycemia,and testing in the Laboratory should be considered if clinically indicated. Blood specimen (specimen) 06/17/2020 4:51 PM CDT 06/17/2020 4:51 PM CDT Result [facility] Summer Anguiano MD LAB POCT ORDERABLES - DEVIC E Final Result Performing Organization Address [facility] Co de Phone Number [facility])[3] [address] [facility] [place] [address] * Blood culture Blood (06/17/2020 4:26 PM CDT) Report Final Report: No growth [facility]3] Blood specimen (specimen) 06/17/2020 4:26 PM CDT 06/17/2020 4:43 PM CDT Narrative [facility])[3] - 06/23/2020 7:01 AM CDT From a different site than #1. Result [facility] Summer Anguiano MD LAB MICROBIOLOGY - GENERAL ORDERABLES Final Result Performing Organization Address [facility]/ZIP Co de Phone Number [facility] ([facility])[3] [address] [place] [address] * Blood culture Blood (06/17/2020 4:26 PM CDT) Report Final Report: No growth [facility])[3] Blood specimen (specimen) 06/17/2020 4:26 PM CDT 06/17/2020 4:43 PM CDT Result [facility] Summer Anguiano MD LAB MICROBIOLOGY - GENERAL ORDERABLES Final Result Performing Organization Address City/[facility] Co de Phone Number [facility] ([facility])[3] [address] [facility] [place] [address] * (ABNORMAL) POCT glucose (06/17/2020 11:57 AM CDT) Glucose, POC 150(H) 70 - 140 mg/dL [facility])[3] Comment: For Glucose values <35 mg/dl when Hematocrit is >60 mg/dl,the test may not accurately detect significant hypoglycemia,and testing in the Laboratory should be considered if clinically indicated. Blood specimen (specimen) 06/17/2020 11:57 AM CDT 06/17/2020 11:57 AM CDT us Summer Anguiano MD LAB POCT ORDERABLES - DEVIC E Final Result [facility] [address] Department [place] [address] * US ZAYNAB (06/17/2020 10:41 AM CDT) Anatomical Region Laterality Modality Vascular N/A Ultrasound 06/17/2020 6:15 PM CDT Impressions 06/17/2020 6:15 PM CDT 1. ??The patient has a right toecc-fqa-dbce amputation. No studies were done on this [...] foot pain. The patient has a right kzsza-sgs-fuwx amputation. Right side: The patient has a right hspky-ezw-rexi amputation Left side: The brachial pressure is [...] foot pain. The patient has a right oywgs-vrd-qzlj amputation. Right side: The patient has a right jvplx-xkz-dqua amputation Left side: The brachial pressure is [...] IMPRESSION: 1. The patient has a right uarux-add-qtmf amputation. No studies were done on this [...] by: Franco Martinez M.D. Lisa Pradhan MD IMG US PROCEDURES Final Result * (ABNORMAL) POCT glucose (06/17/2020 6:45 AM CDT) [facility] Signature Glucose, POC 185(H) 70 - 140 mg/dL [facility] Comment: For Glucose values <35 mg/dl when Hematocrit is >60 mg/dl,the test may not accurately detect significant hypoglycemia,and testing in the Laboratory should be considered if clinically indicated. Blood specimen (specimen) 06/17/2020 6:45 AM CDT 06/17/2020 6:45 AM CDT us Summer Anguiano MD LAB POCT ORDERABLES - DEVIC E Final Result [facility] [address] Department [place] [address] * eGFR (06/17/2020 6:37 AM CDT) eGFR 68 mL/min/1.7 3 m2 [facility]3] Comment: Interpretive Data Reference Interval Normal ?>/= [...] Bundy MD LAB BLOOD ORDERABLES Final Result [facility] ([facility])[3] [address] Department [place] [address] * (ABNORMAL) Differential, auto (06/17/2020 6:37 AM CDT) Pathologist [facility] Neutrophil abs 5.3 1.7 - 6.5 K/cumm [facility])[3] Imm gran abs 0.0 0.0 - 0.1 K/cumm [facility])[3] Lymphocyte abs 0.6(L) 0.8 - 3.3 K/cumm [facility]3] Monocyte abs 0.4 0.2 - 0.8 K/cumm [facility]3] Eosinophil abs 0.0 0.0 - 0.5 K/cumm [facility]3] Basophil abs 0.0 0.0 - 0.1 K/cumm [facility]3] Neutrophil pct 83.2 % [facility])[3] Comment: Interpretive Data Percent cell count reference ranges are not reported, since discordance with absolute values may lead to misinterpretation of CBC data. Current Interpretive Data was last revised on 2017. Imm gran pct 0.5 % [facility]3] Comment: Interpretive Data Percent cell count reference ranges are not reported, since discordance with absolute values may lead to misinterpretation of CBC data. Current Interpretive Data was last revised on 2017. Lymphocyte pct 10.1 % [facility]3] Comment: Interpretive Data Percent cell count reference ranges are not reported, since discordance with absolute values may lead to misinterpretation of CBC data. Current Interpretive Data was last revised on 2017. Monocyte pct 5.7 % [facility]3] Comment: Interpretive Data Percent cell count reference ranges are not reported, since discordance with absolute values may lead to misinterpretation of CBC data. Current Interpretive Data was last revised on 2017. Eosinophil pct 0.0 % [facility]3] Comment: Interpretive Data Percent cell count reference ranges are not reported, since discordance with absolute values may lead to misinterpretation of CBC data. Current Interpretive Data was last revised on 2017. Basophil pct 0.5 % [facility]3] Comment: Interpretive Data Percent cell count reference ranges are not reported, since discordance with absolute values may lead to misinterpretation of CBC data. Current Interpretive Data was last revised on 2017. Blood specimen (specimen) 06/17/2020 6:37 AM CDT 06/17/2020 7:19 AM CDT us Tanisha Bundy MD LAB BLOOD ORDERABLES Final Result [facility])[3] [address] Department [place] [address] * aPTT (06/17/2020 6:37 AM CDT) Pathologist [facility] aPTT 32 27 - 37 sec [facility])[3] Comment: Interpretive Data Therapeutic heparin range: 60.0 - 94.0 seconds. Based on correlation with therapeutic heparin activity range of 0.3-0.7 Units/mL. Current interpretive data was last revised on 2020. Blood specimen (specimen) 06/17/2020 6:37 AM CDT 06/17/2020 7:20 AM CDT Tanisha Bundy MD LAB BLOOD ORDERABLES Final Result Performing Organization Address City/[facility]/ZIP Co de Phone Number [facility])[3] [address] [place] [address] * (ABNORMAL) Protime-INR (06/17/2020 6:37 AM CDT) [facility] PT 14.1(H) 9.5 - 13.6 sec [facility])[3] INR 1.3(H) 0.9 - 1.2 [facility])[3] Comment: Interpretive data Oral anticoagulant therapeutic ranges: Venous thromboembolism prophylaxis or treatment: 2.0-3.0 CARDIOLOGY Standard range: 2.0-3.0 High-intensity range: 2.5-3.5 Refer to indication-specific guidelines for appropriate target ranges for prosthetic heart valve replacement. Current interpretive data was last revised on 2019. Blood specimen (specimen) 06/17/2020 6:37 AM CDT 06/17/2020 7:20 AM CDT us Tanisha Bundy MD LAB BLOOD ORDERABLES Final Result [facility])[3] [address] [place] [address] * (ABNORMAL) CBC with auto differential (06/17/2020 6:37 AM CDT) Pathologist [facility] WBC 6.4 3.8 - 9.9 K/cumm [facility])[3] Hgb 9.8(L) 11.9 - 15.5 g/dL [facility])[3] Hct 29.9(L) 35.6 - 45.5 % [facility])[3] Plt 209 150 - 400 K/cumm [facility])[3] MPV 9.8 9.1 - 12.3 fL [facility]3] RBC 3.09(L) 3.90 - 5.20 M/cumm [facility])[3] MCV 96.8(H) 81.3 - 96.4 fL [facility])[3] MCH 31.7 27.1 - 33.3 pg [facility])[3] MCHC 32.8 32.3 - 35.7 g/dL [facility]3] RDW CV 15.0(H) 11.1 - 14.9 % [facility]3] RDW SD 53.1(H) 35.7 - 48.1 fL [facility])[3] NRBC abs 0.00 0.00 - 0.01 K/cumm [facility])[3] Blood specimen (specimen) 06/17/2020 6:37 AM CDT 06/17/2020 7:19 AM CDT Tanisha Bundy MD LAB BLOOD ORDERABLES Final Result Performing Organization Address [facility] Co de Phone Number [facility])[3] [address] [employer] [place] [address] * Phosphorus (06/17/2020 6:37 AM CDT) Pathologist [facility] Phosphorus, pl 3.5 2.3 - 4.5 mg/dL [facility])[3] Blood specimen (specimen) 06/17/2020 6:37 AM CDT 06/17/2020 7:35 AM CDT Tanisha Bundy MD LAB BLOOD ORDERABLES Final Result Performing Organization Address [facility] Co de Phone Number [facility])[3] [address] Department [place] [address] * Magnesium (06/17/2020 6:37 AM CDT) Magnesium 1.8 1.4 - 2.5 mg/dL [facility]3] Blood specimen (specimen) 06/17/2020 6:37 AM CDT 06/17/2020 7:35 AM CDT Tanisha Bundy MD LAB BLOOD ORDERABLES Final Result [facility])[3] [address] Department [place] [address] * (ABNORMAL) Comprehensive metabolic panel (06/17/2020 6:37 AM CDT) Pathologist [facility] Sodium 136 135 - 145 mmol/L [facility]3] Potassium, pl 3.1(L) 3.3 - 4.9 mmol/L [facility]3] Chloride 95(L) 97 - 110 mmol/L [facility]3] CO2 32 22 - 32 mmol/L [facility]3] Anion gap 9 2 - 15 mmol/L [facility]3] BUN 18 8 - 25 mg/dL [facility]3] Creatinine 0.89 0.60 - 1.10 mg/dL [facility]3] Glucose 170 70 - 199 mg/dL [facility]3] Comment: Interpretive Data Fasting glucose >/= 126 [...] 2017. Calcium 8.6 8.5 - 10.3 mg/dL [facility]3] Bilirubin, total 0.6 0.1 - 1.2 mg/dL [facility]3] Protein, pl 7.0 6.5 - 8.5 g/dL [facility]3] Albumin 3.5 3.5 - 5.0 g/dL [facility]3] Alk phos 27(L) 40 - 130 Units/L [facility]3] ALT 25 7 - 45 Units/L [facility]3] AST 33 10 - 45 Units/L [facility]3] Blood specimen (specimen) 06/17/2020 6:37 AM CDT 06/17/2020 7:35 AM CDT Tanisha Bundy MD LAB BLOOD ORDERABLES Final Result Performing Organization Address [facility]/ZIP Co de Phone Number [facility])[3] [address] [facility] Laboratories [place], [place] [id number] * (ABNORMAL) POCT glucose (06/16/2020 10:32 PM CDT) Glucose, POC 185(H) 70 - 140 mg/dL [facility]3] Comment: For Glucose values <35 mg/dl when Hematocrit is >60 mg/dl,the test may not accurately detect significant hypoglycemia,and testing in the Laboratory should be considered if clinically indicated. Blood specimen (specimen) 06/16/2020 10:32 PM CDT 06/16/2020 10:32 PM CDT Result [facility] Tanisha Bundy MD LAB POCT ORDERABLES - GILMA CE Final Result Performing Organization Address [facility] Co de Phone Number [facility])[3] [address] Department [place] [address] * (ABNORMAL) POCT glucose (06/16/2020 8:41 PM CDT) Glucose, POC 213(H) 70 - 140 mg/dL [facility]3] Comment: For Glucose values <35 mg/dl when Hematocrit is >60 mg/dl,the test may not accurately detect significant hypoglycemia,and testing in the Laboratory should be considered if clinically indicated. Blood specimen (specimen) 06/16/2020 8:41 PM CDT 06/16/2020 8:41 PM CDT Tanisha Bundy MD LAB POCT ORDERABLES - GILMA CE Final Result [facility] [address] Department [place] [address] * CT Head WO Contrast (06/16/2020 5:53 [...] panel Nasopharyngeal (06/16/2020 5:33 PM CDT) Pathologist [facility] Influenza A RNA Not Detected Not Detected [facility]3] Influenza B RNA Not Detected Not Detected [facility]3] RSV RNA Not Detected Not Detected [facility]3] COVID-19 RNA Not Detected Not Detected [facility]3] Coronavirus 229E RNA Not Detected Not Detected [facility]3] Coronavirus HKU1 RNA Not Detected Not Detected [facility]3] Coronavirus NL63 RNA Not Detected Not Detected [facility]3] Coronavirus OC43 RNA Not Detected Not Detected [facility]3] Adenovirus DNA Not Detected Not Detected [facility]3] Metapneumovirus RNA Not Detected Not Detected [facility]3] Rhinovirus/Enterov irus RNA Not Detected Not Detected [facility]3] Parainfluenza 1 RNA Not Detected Not Detected [facility]3] Parainfluenza 2 RNA Not Detected Not Detected [facility]3] Parainfluenza 3 RNA Not Detected Not Detected [facility]3] Parainfluenza 4 RNA Not Detected Not Detected [facility]3] B. pertussis DNA Not Detected Not Detected [facility]3] B. parapertussis DNA Not Detected Not Detected [facility]3] C. pneumoniae DNA Not Detected Not Detected [facility]3] M. pneumoniae DNA Not Detected Not Detected [facility]3] Comment: The [employer] FilmArray Respiratory Panel (RP2.1) assay is a [...] authorization from the FDA for testing of PICKER/PULLER swabs. ??The performance characteristics of this assay have been determined by [facility]. Current interpretive data was last revised on 2019. Employeed in healthcare? No [facility]3] status? No [facility]3] Group care resident? No [facility]3] Hospitalized? No [facility] Is patient in ICU? No [facility]3] Symptomatic as defined by CDC? Unknown [facility]3] Nasopharyngeal 06/16/2020 5: 33 PM CDT 06/16/2020 5:38 PM CDT Narrative [facility]3] - 06/16/2020 6:30 PM CDT Reason for testing?->Symptomatic (immunocompromised) Known exposure to confirmed or suspected COVID-19 case?->No Surveillance testing for transplant patient?->No Preeti Barr MD LAB MICROBIOLOGY - GENERA L ORDERABLES Final Result Performing Organization Address [facility] Co de Phone Number [facility])[3] [address] Department [place] [address] * (ABNORMAL) POCT glucose (06/16/2020 4:39 PM CDT) [facility] Glucose, POC 228(H) 70 - 140 mg/dL [facility]3] Comment: For Glucose values <35 mg/dl when Hematocrit is >60 mg/dl,the test may not accurately detect significant hypoglycemia,and testing in the Laboratory should be considered if clinically indicated. Blood specimen (specimen) 06/16/2020 4:39 PM CDT 06/16/2020 4:39 PM CDT Preeti Barr MD LAB POCT ORDERABLES - DEV ICE Final Result Performing Organization Address [facility] Co de Phone Number [facility]3] [address] Department [place] [address] * XR Foot Left 3 or More [...] clear. Electronically signed by: Tomi Urena M.D. Preeti Barr MD IMG XR PROCEDURES Final [...] by: Aram Pederson M.D. Preeti Barr MD IM CT PROCEDURES Final R esult * ESR - Add on lab test (06/16/2020 2:02 PM CDT) Acceptable Yes [facility] Blood specimen (specimen) 06/16/2020 2:02 PM CDT 06/16/2020 2:02 PM CDT Narrative [facility]3] - 06/16/2020 2:02 PM CDT Name of Test->ESR Preeti Barr MD LAB BLOOD ORDERABLES Debbie l Result Performing Organization Address [facility]/ZIP Co de Phone Number [facility])[3] [address] Department [employer] [place], [place] [id number] * CRP High sensitivity - Add on lab test (06/16/2020 1:50 PM CDT) Pathologist [facility] Acceptable Yes [facility]3] Blood specimen (specimen) 06/16/2020 1:50 PM CDT 06/16/2020 2:00 PM CDT Narrative [facility]3] - 06/16/2020 2:00 PM CDT Name of Test->CRP High sensitivity Result [facility] Preeti Barr MD LAB BLOOD ORDERABLES Debbie l Result Performing Organization Address [facility] Co de Phone Number [facility]3] [address] [place] [address] * (ABNORMAL) Erythrocyte sedimentation rate (06/16/2020 1:18 PM CDT) [facility] Erythrocyte sedimentation rate 95(H) 1 - 30 mm/hr [facility]3] Blood specimen (specimen) 06/16/2020 1:18 PM CDT 06/16/2020 1:26 PM CDT Result [facility] Notinfile Unknown LAB BLOOD ORDERABLES Final Res ult Performing Organization Address [facility] Co de Phone Number [facility]3] [address] [facility] [employer] [place], [place] [phone] * CRP (cardiac risk) (06/16/2020 1:18 PM CDT) Pathologist [facility] hsCRP 85.17 mg/L [facility]3] Comment: Interpretive data Adult only - values [...] Unknown LAB BLOOD ORDERABLES Final Res ult [facility] [address] Department [place] [address] * eGFR (06/16/2020 1:18 PM CDT) eGFR 86 mL/min/1.[address] [facility] Comment: Interpretive Data Reference Interval Normal [...] MD LAB BLOOD ORDERABLES Final R esult [facility]3] [address] Department [place] [address] * Differential, auto (06/16/2020 1:18 PM CDT) Neutrophil abs 5.4 1.7 - 6.5 K/cumm [facility]3] Imm gran abs 0.1 0.0 - 0.1 K/cumm [facility]3] Lymphocyte abs 0.8 0.8 - 3.3 K/cumm [facility]3] Monocyte abs 0.5 0.2 - 0.8 K/cumm [facility]3] Eosinophil abs 0.2 0.0 - 0.5 K/cumm [facility]3] Basophil abs 0.0 0.0 - 0.1 K/cumm [facility]3] Neutrophil pct 77.2 % [facility]3] Comment: Interpretive Data Percent cell count reference ranges are not reported, since discordance with absolute values may lead to misinterpretation of CBC data. Current Interpretive Data was last revised on 2017. Imm gran pct 0.9 % [facility]3] Comment: Interpretive Data Percent cell count reference ranges are not reported, since discordance with absolute values may lead to misinterpretation of CBC data. Current Interpretive Data was last revised on 2017. Lymphocyte pct 11.7 % [facility]3] Comment: Interpretive Data Percent cell count reference ranges are not reported, since discordance with absolute values may lead to misinterpretation of CBC data. Current Interpretive Data was last revised on 2017. Monocyte pct 7.1 % [facility]3] Comment: Interpretive Data Percent cell count reference ranges are not reported, since discordance with absolute values may lead to misinterpretation of CBC data. Current Interpretive Data was last revised on 2017. Eosinophil pct 2.5 % [facility]3] Comment: Interpretive Data Percent cell count reference ranges are not reported, since discordance with absolute values may lead to misinterpretation of CBC data. Current Interpretive Data was last revised on 2017. Basophil pct 0.6 % [facility]3] Comment: Interpretive Data Percent cell count reference ranges are not reported, since discordance with absolute values may lead to misinterpretation of CBC data. Current Interpretive Data was last revised on 2017. Blood specimen (specimen) 06/16/2020 1:18 PM CDT 06/16/2020 1:26 PM CDT us Sam Rosenberg MD LAB BLOOD ORDERABLES Final R esult [facility]3] [address] Department Physician [place] [address] * Blood culture Blood (06/16/2020 1:18 PM CDT) Report Final Report: No growth [facility]3] Blood specimen (specimen) 06/16/2020 1:18 PM CDT 06/16/2020 1:32 PM CDT Narrative [facility]3] - 06/22/2020 7:00 AM CDT From a different site than #1. us Preeti Barr MD LAB MICROBIOLOGY - GENERA L ORDERABLES Final Result [facility]3] [address] Department [place] [place] [address] * (ABNORMAL) Blood culture Blood (06/16/2020 1:18 PM CDT) Direct Specimen Exam Stain: Gram positive cocci resembling Staph Test result called to and read back by LEANNE DUARTE RN on 06/17/2020 15:12:57 by JERZY [facility]3] Report Final Report: Coagulase negative Staphylococcus species Isolate may represent contamination. ??Susceptibility not reported. ??Please call the Microbiology Lab if susceptibility testing is clinically indicated. (.) [facility]3] Blood specimen (specimen) 06/16/2020 1:18 PM CDT 06/16/2020 1:32 PM CDT Preeti Barr MD LAB MICROBIOLOGY - GENERA L ORDERABLES Final Result Performing Organization Address [facility]/ZIP Co de Phone Number [facility]3] [address] [employer] [place], [place] [id number] * Sepsis Lactate w/ Reflex (06/16/2020 1:18 PM CDT) [facility] Sepsis Lactate 1.9 0.7 - 2.0 mmol/L [facility]3] Blood specimen (specimen) 06/16/2020 1:18 PM CDT 06/16/2020 1:25 PM CDT Preeti Barr MD LAB BLOOD ORDERABLES Debbie l Result Performing Organization Address [facility]/ZIP Co de Phone Number [facility]3] [address] [employer] [place], [place] [id number] * (ABNORMAL) Comprehensive metabolic panel (06/16/2020 1:18 PM CDT) [facility] Sodium 135 135 - 145 mmol/L [facility]3] Potassium, pl 4.1 3.3 - 4.9 mmol/L [facility]3] Comment:Hemolyzed; potassium value may be falsely elevated by as much as 0.6 - 1.0 mmol/L. Suggest redraw and reanalysis Chloride 93(L) 97 - 110 mmol/L [facility]3] CO2 32 22 - 32 mmol/L [facility]3] Anion gap 10 2 - 15 mmol/L [facility]3] BUN 15 8 - 25 mg/dL [facility]3] Creatinine 0.73 0.60 - 1.10 mg/dL [facility]3] Glucose 228(H) 70 - 199 mg/dL [facility]3] Comment: Interpretive Data Fasting glucose >/= 126 [...] 2017. Calcium 9.1 8.5 - 10.3 mg/dL [facility]3] Bilirubin, total 0.9 0.1 - 1.2 mg/dL [facility]3] Protein, pl 7.5 6.5 - 8.5 g/dL [facility]3] Albumin 3.6 3.5 - 5.0 g/dL [facility]3] Alk phos 29(L) 40 - 130 Units/L [facility]3] ALT 29 7 - 45 Units/L [facility]3] Comment:Moderately Hemolyzed Specimen AST 48(H) 10 - 45 Units/L [facility]3] Comment:Moderately Hemolyzed Specimen Blood specimen (specimen) 06/16/2020 1:18 PM CDT 06/16/2020 1:25 PM CDT Preeti Barr MD LAB BLOOD ORDERABLES Debbie valero Result [facility])[3] [address] Department [place] [address] * (ABNORMAL) CBC with auto differential (06/16/2020 1:18 PM CDT) WBC 6.9 3.8 - 9.9 K/cumm [facility]3] Hgb 11.4(L) 11.9 - 15.5 g/dL [facility]3] Hct 33.8(L) 35.6 - 45.5 % [facility]3] Plt 228 150 - 400 K/cumm [facility]3] MPV 9.4 9.1 - 12.3 fL [facility]3] RBC 3.62(L) 3.90 - 5.20 M/cumm [facility]3] MCV 93.4 81.3 - 96.4 fL [facility]3] MCH 31.5 27.1 - 33.3 pg [facility]3] MCHC 33.7 32.3 - 35.7 g/dL [facility]3] RDW CV 14.6 11.1 - 14.9 % [facility]3] RDW SD 50.2(H) 35.7 - 48.1 fL [facility]3] NRBC abs 0.00 0.00 - 0.01 K/cumm [facility]3] Blood specimen (specimen) 06/16/2020 1:18 PM CDT 06/16/2020 1:26 PM CDT us Preeti Barr MD LAB BLOOD ORDERABLES Debbie l Result Performing Organization Address [facility] Co de Phone Number [facility])[3] [address] Department Physician Practice [employer] [place], [place] [phone] * (ABNORMAL) POCT glucose (06/16/2020 12:58 PM CDT) [facility] Glucose, POC 244(H) 70 - 140 mg/dL [facility]3] Comment: For Glucose values <35 mg/dl when Hematocrit is >60 mg/dl,the test may not accurately detect significant hypoglycemia,and testing in the Laboratory should be considered if clinically indicated. Blood specimen (specimen) 06/16/2020 12:58 PM CDT 06/16/2020 12:58 PM CDT us Notinfile Unknown LAB POCT ORDERABLES - DEVICE F inal Result Performing Organization Address [facility]/ZIP Co de Phone Number [facility])[3] [address] Department [place] [place] [address] documented in this encounter Visit Diagnoses Not on filedocumented in this encounter Admitting Diagnoses Diagnosis Gastrointestinal [...] than 38.3 C, Starting on Mon06/21/20 at 2000, Indications: Fever, PainIndications:Fever,Pain Given 06/26/2020 11:27 AM CDT 650 mg Given 06/26/2020 2:31 AM CDT 650 mg Given 06/25/2020 4:37 PM CDT 650 mg amLODIPine (NORVASC) tablet 10 mg 10 mg, oral, Daily, First dose on Chari 06/18/20 at 1745 Given 06/26/2020 8:54 AM CDT 10 mg Given 06/25/2020 8:24 AM CDT 10 mg Given 06/24/2020 9:04 AM CDT 10 mg dextrose (D10W) 10% bolus 250 mL 250 mL, intravenous, at 1,000 mL/hr, Administer over 15 Minutes, Every 15 min PRN, blood glucose less than 70 mg/dL and UNABLE to swallow/take PO glucose/juice., Starting on Mon06/16/20 at 2128, After treatment for hypoglycemia, recheck BG followed [...] Call MD for each episode of hypoglycemia. PARTS PICKER STATES GLUTOSE-15 CONTAINS GLUCOSE 40% W/W (50% W/V), Indications: hypoglycemic disorderIndications:hypoglycemi c disorder enoxaparin (LOVENOX) syringe 40 mg 40 mg, subcutaneous, Daily (for enoxaparin), First dose on Mon06/17/20 at 2100, Indications: VTE ProphylaxisIndications:VTE Prophylaxis Given 06/25/2020 10:35 PM CDT 40 mg Left Lower Abdomen Given 06/24/2020 9:05 PM CDT 40 mg Ri ght Lower Abdomen Given 06/23/2020 10:05 PM CDT 40 mg L eft Lower Abdomen gabapentin (NEURONTIN) capsule 400 mg 400 mg, oral, 2 times daily, First dose (after last modification) on Mon06/23/20 at 2100 Given 06/26/2020 8:54 AM CDT 400 mg Given 06/25/2020 10:35 PM CDT 400 mg Given 06/25/2020 8:24 AM CDT 400 mg HYDROmorphone (DILAUDID) injection 0.5 mg 0.5 mg, intravenous, Administer over 2 Minutes, Every 4 hours PRN, 2nd line for pain, Starting on Mon06/20/20 at 1532 Given 06/22/2020 12:06 AM CDT [...] CDT 2 Units Le ft Upper Arm levothyroxine (SYNTHROID) tablet 100 mcg 100 mcg, oral, Daily (early AM), First dose (after last modification) on Mon06/19/20 at 0600, Administer on an empty stomach, preferably 30 minutes before breakfast. Take 4 hours apart from antacids, iron and calcium products. Given 06/26/2020 6:13 AM CDT 100 mcg Given 06/25/2020 6:25 AM CDT 100 mcg Given 06/24/2020 5:58 AM CDT 100 mcg ondansetron (ZOFRAN) injection 4 mg 4 [...] Given 06/24/2020 5:28 PM CDT 5 mg pantoprazole (PROTONIX) injection [...] Given 06/25/2020 8:24 AM CDT 40 mg sodium chloride 0.9% flush 0.5-20 mL 0.5-20 mL, intra-catheter, Every 8 hours scheduled, First dose on 06/21/20 at 2200, Flush volume based on line type and size. , Indications: FlushingIndications:Flushing Given 06/25/2020 10:36 PM CDT 1 0 mL Given 06/25/2020 2:17 PM CDT 10 [...] intra-catheter, As needed, line care, Starting on 06/21/20 at 2000, Flush volume based on line type and size. Flush before and after each use. , Indications: FlushingIndications:Flushing sodium chloride 0.9% irrigation As needed, Starting on Mon06/19/20 at 1800, Intra-Op Given 06/19/2020 6:00 PM CDT 1,000 mL Surgical Site documented in this encounter Discontinued Medications Medication [...] 1 tablet (50 mcg total) by mouth therapeutic recreation director before breakfast Error 11/21/2019 06/16/[address] [...] mcg tablet Take 75 mcg by mouth therapeutic recreation director before breakfast Stop Taking at Discharge 06/26/2020 documented as of this encounter Historical Medications * This list may reflect changes made after this encounter. atorvastatin (LIPITOR) 40 mg tablet Take 1 tablet (40 mg total) by mouth daily amLODIPine (NORVASC) 10 mg tablet Take 1 tablet (10 mg total) by mouth daily levothyroxine (SYNTHROID) 75 mcg tablet Take 75 mcg by mouth therapeutic recreation director before breakfast 1 traMADoL (ULTRAM) 50 mg tablet Take [...] 10 mg, oral, Daily, First dose on Chari 06/18/20 at 1745 0904 (Given - Provider: Yaquelin Telles RN) 0824 (Given - Provider: Yaquelin Telles RN) 0854 (Given - Provider: Jennifer Todd RN) enoxaparin (LOVENOX) syringe 40 mg 40 mg, subcutaneous, Daily (for enoxaparin), First dose on Mon06/17/20 at 2100, Indications: VTE Prophylaxis 2104 (Given - Provider: Evelin Reaves RN) 2234 (Given - Provider: Gabriela Rader RN) gabapentin (NEURONTIN) capsule 400 mg 400 mg, oral, 2 times daily, First dose (after last modification) on Mon06/23/20 at 2100 0905 (Given - Provider: Yaquelin Telles RN)2103 (Given - Provider: Evelin Reaves RN) 08 (Given - Provider: Yaquelin Telles RN)223 (Given - Provider: Gabriela Rader RN) 0854 (Given - Provider: Jennifer Todd, SPENCER) insulin glargine (LANTUS) 100 unit/mL injection 7 Units 7 Units, subcutaneous, Every morning, First dose on Mon06/19/20 at 0900, Do not mix with other insulins 09 (Given - Provider: Yaquelin Telles RN) 0824 (Given - Provider: Yaquelin Telles RN) 0853 (Given - Provider: Jennifer Todd, SPENCER) insulin lispro (HumaLOG, ADMELOG) 100 unit/mL injection 1-2 Units 1-2 Units, subcutaneous, Nightly, First dose on Mon06/16/20 at 2200, Blood Sugar Low Dose PM - PO patients 200 or less No Insulin 201 - 250 1 unit 251 - 299 2 units Greater than 299 Call MD for hyperglycemia management instructions Do NOT hold for NPO status., Indications: Diabetes Mellitus 2109 (Given - Provider: Evelin Reaves RN - Comment: BG 202) 2234 (Not Given - Provider: Gabriela Rader RN [...] RN) 0625 (Given - Provider: Kenny Orourke RN) 0613 (Given - Provider: Gabriela Rader RN) pantoprazole (PROTONIX) injection 40 mg 40 mg, intravenous, Administer over 2 Minutes, 2 times daily, First dose on Mon06/21/20 at 2100, For IV Push administration for adults- 40 mg vial: add 10 mL of sodium chloride 0.9% to achieve a final concentration of 4 mg/mL, Indications: GI Bleed, Treatment of Non-Bleeding Gastric Disorder 0905 (Given - Provider: Yaquelin Telles RN)2104 (Given - Provider: Evelin Reaves RN) 0824 (Given - Provider: Yaquelin Telles RN)2236 (Given - Provider: Gabriela Rader RN) 0854 (Given - Provider: Jennifer Todd, SPENCER) piperacillin-tazobactam (ZOSYN) 4.5 gram/100 mL in dextrose [...] Every 8 hours scheduled, First dose on 06/21/20 at 2200, Flush volume based on line type and size. , Indications: Flushing 0603 (Given - Provider: Evelin Reaves RN)1425 (Given - Provider: Yaquelin Telles RN)2105 (Given - Provider: Evelin Reaves RN) 0625 (Not Given - Provider: Kenny Orourke RN - Reason: Other)1417 (Given - Provider: Yaquelin Telles RN)2236 (Given - Provider: Gabriela Rader RN) 0613 (Not Given - Provider: Gabriela Rader RN - Reason: Other)1400 (Due) sodium chloride 0.9% flush 0.5-20 mL 0.5-20 mL, intra-catheter, Every 8 hours scheduled, First dose on 06/21/20 at 2200, Flush volume based on line type and size. , Indications: Flushing 0603 (Given - Provider: Evelin Reaves RN)1425 (Given - Provider: Yaquelin Telles RN)2105 (Given - Provider: Evelin Reaves RN) 0625 (Given - Provider: Kenny Orourke, SPENCER)1418 (Given - Provider: Yaquelin Telles RN)2236 (Given - Provider: Gabriela Rader RN) 0612 (Given - Provider: Gabriela Rader RN)1400 (Due) PRN Medication Order 06/24/2020 06/25/2020 06/26/2020 acetaminophen (TYLENOL) tablet 650 mg 650 mg, oral, Every 4 hours PRN, 1st line for pain, fever, fever greater than 38.3 C, Starting on 06/21/20 at 2000, Indications: Fever, Pain 0508 (Given - Provider: Evelin Reaves RN)1625 (Given - Provider: Yaquelin Telles RN)210 (Given - Provider: Evelin Reaves RN) 0254 (Given - Provider: Kenny Orourke, RN)1637 (Given - Provider: Yaquelin Telles, RN) 0231 (Given - Provider: Gabriela Rader, SPENCER)1127 (Given - Provider: Jennifer Todd, SPENCER) dextrose (D10W) 10% bolus 250 mL(Linked Group 1) 250 mL, intravenous, at 1,000 mL/hr, Administer over 15 Minutes, Every 15 min PRN, blood glucose less than 70 mg/dL and UNABLE to swallow/take PO glucose/juice., Starting on Mon06/16/20 at 2128, After treatment for hypoglycemia, recheck BG followed [...] Call MD for each episode of hypoglycemia. PARTS PICKER STATES GLUTOSE-15 CONTAINS GLUCOSE 40% W/W (50% [...] PRN, nausea, vomiting, Starting on Mon06/21/20 at 2000, Indications: nausea and vomiting oxyCODONE (ROXICODONE) tablet 5 mg 5 mg, oral, Every 4 hours PRN, 2nd line for pain, Starting on Mon06/16/20 at 2128, May administer 1 hour after 1st line analgesic agent for uncontrolled or increasing pain., Indications: Pain 0051 (Given - Provider: Evelin Reaves RN)0904 (Given - Provider: Yaquelin Telles, SPENCER)1316 (Given - Provider: Yaquelin Telles, RN)1728 (Given - Provider: Yaquelin Telles, RN) 1047 (Given - Provider: Yaquelin Telles, RN)1517 (Given - Provider: Yaquelin Telles, SPENCER) sodium chloride 0.9% flush 0.5-20 mL [...] Call MD for each episode of hypoglycemia. PARTS PICKER STATES GLUTOSE-15 CONTAINS GLUCOSE 40% W/W (50% [...] Count Last Ordered Date First Ordered Date gabapentin (NEURONTIN) capsule 400 mg 1 piperacillin-tazobactam (ZOS YN) 4.5 gram/100 mL in dextrose (premix) 4.5 g 1 06/22/2020 acetaminophen (TYLENOL) tablet 650 mg 2 01/202106/16/2020 ioversoL (OPTIRAY 350) syrin ge syringe 125 mL 3 06/21/2020 06/16/2020 ondansetron (ZOFRAN) injection 4 mg 3 06/2106/16/2020 pantoprazole (PROTONIX) injection 40 mg 1 0 06/21/2020 yjzdvnjlsopk-kihfjecyns-ipze arelis (ZOSYN) 3.375 gram/50 mL in dextrose (premix) 3.375 g 1 06/21/2020 sodium chloride 0.9% flush 0.5-20 mL 5 06/1106/19/2020 sodium chloride 0.9% flush 125 mL 3 021 06/16/2020 sodium chloride 0.9% infusion 1 06/21/2020 sodium chloride 0.9% IVPB 0-250 mL 1 2020 HYDROmorphone (DILAUDID) injection 0.5 mg 1 06/20/2020 acetaminophen (TYLENOL) 500 mg tablet - ADS Override Pull 1 06/19/2020 acetaminophen (TYLENOL) tablet 1,000 mg 1 0 06/19/2020 albumin 5 % bottle 12.5 g 1 06/19/2020 albuterol 2.5 mg /3 mL (0.08 3 %) nebulizer solution 2.5 mg 1 06/19/2020 dimenhyDRINATE (DRAMAMINE) 5 0 mg tablet - ADS Override Pull 1 06/19/2020 dimenhyDRINATE (DRAMAMINE) tablet 25 mg 1 0 06/19/2020 diphenhydrAMINE (BENADRYL) i njection 12.5 mg 1 06/19/2020 fentaNYL (SUBLIMAZE) preserv ative free injection 25 mcg 1 06/19/2020 gabapentin (NEURONTIN) 300 m g capsule - ADS Override Pull 1 06/19/2020 gabapentin (NEURONTIN) capsule 300 mg 2 11/202006/16/2020 haloperidol (HALDOL) injection 1 mg 1 06/19 HYDROmorphone (DILAUDID) injection 0.4 mg 1 06/19/2020 insulin lispro (HumaLOG, ADM ELOG) 100 unit/mL injection 1-5 Units 1 06/19/2020 labetaloL (NORMODYNE,TRANDAT E) injection 5 mg 1 06/19/2020 Lactated Ringer's (LR) infusion 1 lidocaine PF (XYLOCAINE) 10 mg/mL (1 %) preservative free injection 2-10 mg 1 06/19/2020 meperidine (DEMEROL) preserv ative free injection 12.5 mg 1 06/19/2020 naloxone (NARCAN) 0.4 mg/mL injection 0.04-0.4 mg 1 06/19/2020 oxyCODONE (ROXICODONE) tablet 5 mg 2 202006/16/2020 racepinephrine (ASTHMANEFRIN ) 2.25 % nebulizer solution 0.5 mL 1 06/19/2020 amLODIPine (NORVASC) tablet 10 mg 1 021 insulin glargine (LANTUS) 10 0 unit/mL injection 7 Units 1 06/18/2020 levothyroxine (SYNTHROID) tablet 100 mcg 1 06/18/2020 potassium chloride ER (KLOR- CON) extended release tablet 40 mEq 1 06/18/2020 enoxaparin (LOVENOX) syringe 40 mg 1 2020 cefepime (MAXIPIME) 1,000 mg in sodium chloride 0.9% 100 mL IVPB 1 06/16/2020 cefepime (MAXIPIME) 2,000 mg in sodium chloride 0.9% 100 mL IVPB 1 06/16/2020 dextrose (D10W) 10% bolus 250 mL 1 06/17/19 21 dextrose (GLUTOSE) 40 % gel 15 g 1 06/17/19 21 glucagon injection 1 mg 1 06/16/2020 insulin lispro (HumaLOG, ADM ELOG) 100 unit/mL injection 1-2 Units 1 06/16/2020 insulin lispro (HumaLOG, ADM ELOG) 100 unit/mL injection 1-3 Units 1 06/16/2020 levothyroxine (SYNTHROID) tablet 75 mcg 1 0 06/16/2020 ondansetron ODT (ZOFRAN-ODT) disintegrating tablet 4 mg 1 06/16/2020 polyethylene glycol (MIRALAX) packet 17 g 1 06/16/2020 sodium chloride 0.9% bolus 1,000 mL 1 06/16 vancomycin 1250 mg/250 mL in sodium chloride 0.9% (premix) 1,250 mg 2 06/16/2020 Lab Orders Without Results Count Last [...] documented as of this encounter Care Teams [employer] Wire[employer] Relationship Specialty Start Date End Date Zeke Puente MD [address] [place] [address] PCP - General 12/02/18 Damon Swanson DO [address] [place] [id number] Medical Oncologist/Student Services Representative Hematology and Oncology 10/25/17 Karl Smith Jr., MD [address] [place], [place] [address] Surgeon General Surgery 11/07/19 documented as of this encounter
--- OUTSIDE RECORDS SUMMARY | 2024-02-26 21:37 | XMS_ITS | Encounter Summary ---
Author Organization [facility] Healthcare Address [address] [place] [address] Care Team Providers Care Control Systems Specialist Name Role Phone Damon Swanson DO Unavailable Zeke Puente MD Primary Care Provider [phone] Sarah Baldwin MD, Karl N. Unavailable Encounter Details Date Type Department Care Team (Latest Contact Info) Description 11/20/2019 10:29 PM CDT - 12/25/2019 6:15 PM CDT Hospital Encounter [facility] [address] [place] [address] Bennett Saleh MD [address] [facility] [address] [place] [address] [facility] ([facility]/HCC) Discharge Disposition: Discharge to hospice / home Social History Tobacco Use Types Packs/Day Years Used Date Smoking Tobacco: Never Smokeless Tobacco: Never Alcohol Use Standard Drinks/Week Comments No 0 (1 standard drink = 0.6 oz pur e alcohol) PHQ-2 Answer Date Recorded PHQ-2 Score 0 11/03/2018 Comments No Sex and Gender Information Value Date Recorded Sex Assigned at Not on file Legal Sex Female 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 Gender Identity Not on file Sexual Orientation Not on file documented as of this encounter Last Filed Vital Signs Vital Sign Reading Time Taken Comments Blood Pressure 132/58 12/03/2019 4:45 PM CDT Pulse 63 12/03/2019 4:45 PM CDT Temperature 35.8 ??C (96.4 ??F) 12/03/2019 4:45 PM CD T Respiratory Rate 15 12/03/2019 4:45 PM CDT Oxygen Saturation 100% 12/03/2019 4:45 PM CDT Inhaled Oxygen Concentration - - Weight - - Height - - Body Mass Index - - documented in this encounter Medications at Time [...] 1 tablet (50 mcg total) 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 Procedure [id number] amputation on the right. Anesthesia General. Procedure [...] was 600 mL. Job ID/VF Job ID: [id number] documented in this encounter Plan of Treatment [...] AM CDT) eGFR 102 mL/min/1.7 3 m2 [facility] Comment: Interpretive Data Reference Interval Normal ?>/= 90 mL/min/1.73m2 Mildly decreased* ? 60 - 89 mL/min/1.73m2 Mildly to moderately decreased ?45 - 59 mL/min/1.73m2 Moderately to severely decreased ??30 - 44 mL/min/1.73m2 Severely decreased ?15 - 29 mL/min/1.73m2 Kidney Failure ?< 15 ??mL/min/1.73m2 *Relative to young adult level If -Pakistani multiply value by 1.16. Estimated glomerular filtration [...] 5:41 AM CDT 12/23/2019 5:41 AM CDT us Bennett Saleh MD LAB BLOOD ORDERABLES Final Re sult [facility] [address] Department [place] [address] * (ABNORMAL) Comprehensive metabolic panel (12/23/2019 5:41 AM CDT) Pathologist [facility] Sodium 140 135 - 145 mmol/L [facility] Potassium, pl 3.6 3.3 - 4.9 mmol/L [facility] Chloride 96(L) 97 - 110 mmol/L [facility] CO2 33(H) 22 - 32 mmol/L [facility] Anion gap 11 2 - 15 mmol/L [facility] BUN 18 8 - 25 mg/dL [facility] Creatinine 0.51(L) 0.60 - 1.10 mg/dL [facility] Glucose 170 70 - 199 mg/dL [facility] Comment: Interpretive Data Fasting glucose >/= [...] 2017. Calcium 8.7 8.5 - 10.3 mg/dL [facility] Bilirubin, total 0.2 0.1 - 1.2 mg/dL [facility] Protein, pl 6.8 6.5 - 8.5 g/dL [facility] Albumin 3.2(L) 3.5 - 5.0 g/dL [facility] Alk phos 26(L) 40 - 130 Units/L [facility] ALT 11 7 - 45 Units/L [facility] AST 16 10 - 45 Units/L [facility] Blood specimen (specimen) 12/23/2019 5:41 AM CDT 12/23/2019 5:41 AM CDT Bennett Saleh MD LAB BLOOD ORDERABLES Final Re sult [facility] [address] Department [place] [address] * CRP (acute phase) (12/23/2019 5:41 AM CDT) CRP 8.4 <=10.0 mg/L [facility] Blood specimen (specimen) 12/23/2019 5:41 AM CDT 12/23/2019 5:41 AM CDT us Bennett Saleh MD LAB BLOOD ORDERABLES Final Re sult [facility] [address] [place] [address] * (ABNORMAL) CBC without differential (12/23/2019 3:47 AM CDT) WBC 5.1 3.8 - 9.9 K/cumm [facility] Hgb 9.4(L) 11.9 - 15.5 g/dL [facility] Hct 29.3(L) 35.6 - 45.5 % [facility] Plt 376 150 - 400 K/cumm [facility] MPV 9.2 9.1 - 12.3 fL [facility] RBC 3.08(L) 3.90 - 5.20 M/cumm [facility] MCV 95.1 81.3 - 96.4 fL [facility] MCH 30.5 27.1 - 33.3 pg [facility] MCHC 32.1(L) 32.3 - 35.7 g/dL [facility] RDW CV 17.0(H) 11.1 - 14.9 % [facility] RDW SD 59.7(H) 35.7 - 48.1 fL [facility] NRBC abs 0.00 0.00 - 0.01 K/cumm [facility] Blood specimen (specimen) 12/23/2019 3:47 AM CDT 12/23/2019 3:47 AM CDT us Vaishali Clemente DO LAB BLOOD ORDERABLES Edited Result - Final [facility] [address] [place] [address] * (ABNORMAL) Erythrocyte sedimentation rate (12/23/2019 3:47 AM CDT) Erythrocyte sedimentation rate 117(H) 1 - 30 mm/hr [facility] Blood specimen (specimen) 12/23/2019 3:47 AM CDT 12/23/2019 3:47 AM CDT Vaishali Clemente DO LAB BLOOD ORDERABLES Final Result Performing Organization Address [facility] Co de Phone Number [facility] [address] Department [place], [place] [id number] * (ABNORMAL) TSH (12/23/2019 3:40 AM CDT) Thyroid Stimulating Hormone 5.62(H) 0.30 - 4.20 mcIUnit/mL [facility] Blood specimen (specimen) 12/23/2019 3:40 AM CDT 12/23/2019 3:45 AM CDT Bennett Saleh MD LAB BLOOD ORDERABLES Final Re sult Performing Organization Address [facility] Co de Phone Number [facility] [address] [place] [address] * eGFR (12/17/2019 4:13 AM CDT) eGFR 96 mL/min/1.7 3 m2 [facility] Comment: Interpretive Data Reference Interval Normal ?>/= 90 mL/min/1.73m2 Mildly decreased* ? 60 - 89 mL/min/1.73m2 Mildly to moderately decreased ?45 - 59 mL/min/1.73m2 Moderately to severely decreased ??30 - 44 mL/min/1.73m2 Severely decreased ?15 - 29 mL/min/1.73m2 Kidney Failure ?< 15 ??mL/min/1.73m2 *Relative to young adult level If -Pakistani multiply value by 1.16. Estimated glomerular filtration [...] MD LAB BLOOD ORDERABLES Final Re sult [facility] [address] [place] [address] * (ABNORMAL) Basic metabolic panel (12/17/2019 4:13 AM CDT) Sodium 138 135 - 145 mmol/L [facility] Potassium, pl 3.3 3.3 - 4.9 mmol/L [facility] Chloride 94(L) 97 - 110 mmol/L [facility] CO2 36(H) 22 - 32 mmol/L [facility] Anion gap 8 2 - 15 mmol/L [facility] BUN 19 8 - 25 mg/dL [facility] Creatinine 0.60 0.60 - 1.10 mg/dL [facility] Glucose 75 70 - 199 mg/dL [facility] Comment: Interpretive Data Fasting glucose >/= [...] 2017. Calcium 8.6 8.5 - 10.3 mg/dL [facility] Blood specimen (specimen) 12/17/2019 4:13 AM CDT 12/17/2019 4:13 AM CDT us Bennett Saleh MD LAB BLOOD ORDERABLES Final Re sult Performing Organization Address [facility] Co de Phone Number [facility] [address] [place] [address] * eGFR (12/16/2019 5:27 AM CDT) [facility] eGFR 97 mL/min/1.7 3 m2 [facility] Comment: Interpretive Data Reference Interval Normal ?>/= 90 mL/min/1.73m2 Mildly decreased* ? 60 - 89 mL/min/1.73m2 Mildly to moderately decreased ?45 - 59 mL/min/1.73m2 Moderately to severely decreased ??30 - 44 mL/min/1.73m2 Severely decreased ?15 - 29 mL/min/1.73m2 Kidney Failure ?< 15 ??mL/min/1.73m2 *Relative to young adult level If -Pakistani multiply value by 1.16. Estimated glomerular filtration [...] BLOOD ORDERABLES Final Result Performing Organization Address [facility] Co de Phone Number [facility] [address] [place] [address] * (ABNORMAL) Comprehensive metabolic panel (12/16/2019 5:27 AM CDT) Sodium 139 135 - 145 mmol/L [facility] Potassium, pl 2.9(L) 3.3 - 4.9 mmol/L [facility] Chloride 93(L) 97 - 110 mmol/L [facility] CO2 37(H) 22 - 32 mmol/L [facility] Anion gap 9 2 - 15 mmol/L [facility] BUN 17 8 - 25 mg/dL [facility] Creatinine 0.59(L) 0.60 - 1.10 mg/dL [facility] Glucose 45(C) 70 - 199 mg/dL [facility] Comment: Critical result called to and read back by Rochelle Lao RN on 12/16/19 0608 to [email or web address] Interpretive Data Fasting glucose >/= 126 mg/dl [...] 2017. Calcium 8.5 8.5 - 10.3 mg/dL [facility] Bilirubin, total 0.2 0.1 - 1.2 mg/dL [facility] Protein, pl 7.0 6.5 - 8.5 g/dL [facility] Albumin 3.1(L) 3.5 - 5.0 g/dL [facility] Alk phos 24(L) 40 - 130 Units/L [facility] ALT 11 7 - 45 Units/L [facility] AST 24 10 - 45 Units/L [facility] Blood specimen (specimen) 12/16/2019 5:27 AM CDT 12/16/2019 5:27 AM CDT us Vaishali Clemente DO LAB BLOOD ORDERABLES Final Result [facility] [address] [facility] [place] [place] [address] * CRP (acute phase) (12/16/2019 5:27 AM CDT) [facility] CRP 5.7 <=10.0 mg/L [facility] Blood specimen (specimen) 12/16/2019 5:27 AM CDT 12/16/2019 5:27 AM CDT Vaishali Clemente LAB BLOOD ORDERABLES Final Result Performing Organization Address City/[facility] Co de Phone Number [facility] [address] [place] [employer] [place] [address] * (ABNORMAL) CBC without differential (12/16/2019 5:26 AM CDT) [facility] WBC 5.4 3.8 - 9.9 K/cumm [facility] Hgb 9.2(L) 11.9 - 15.5 g/dL [facility] Hct 29.2(L) 35.6 - 45.5 % [facility] Plt 403(H) 150 - 400 K/cumm [facility] MPV 8.9(L) 9.1 - 12.3 fL [facility] RBC 3.08(L) 3.90 - 5.20 M/cumm [facility] MCV 94.8 81.3 - 96.4 fL [facility] MCH 29.9 27.1 - 33.3 pg [facility] MCHC 31.5(L) 32.3 - 35.7 g/dL [facility] RDW CV 17.9(H) 11.1 - 14.9 % [facility] RDW SD 62.2(H) 35.7 - 48.1 fL [facility] NRBC abs 0.00 0.00 - 0.01 K/cumm [facility] Blood specimen (specimen) 12/16/2019 5:26 AM CDT 12/16/2019 5:26 AM CDT us Vaishali Clemente DO LAB BLOOD ORDERABLES Edited Result - Final [facility] [address] [facility] [place] [place] [address] * (ABNORMAL) Erythrocyte sedimentation rate (12/16/2019 5:26 AM CDT) Erythrocyte sedimentation rate 124(H) 1 - 30 mm/hr [facility] Blood specimen (specimen) 12/16/2019 5:26 AM CDT 12/16/2019 5:26 AM CDT us Vaishali Clemente DO LAB BLOOD ORDERABLES Final Result Performing Organization Address [facility] Co de Phone Number [facility] [address] [place] [address] * eGFR (12/09/2019 5:07 AM CDT) eGFR 96 mL/min/1.7 3 m2 [facility] Comment: Interpretive Data Reference Interval Normal ?>/= 90 mL/min/1.73m2 Mildly decreased* ? 60 - 89 mL/min/1.73m2 Mildly to moderately decreased ?45 - 59 mL/min/1.73m2 Moderately to severely decreased ??30 - 44 mL/min/1.73m2 Severely decreased ?15 - 29 mL/min/1.73m2 Kidney Failure ?< 15 ??mL/min/1.73m2 *Relative to young adult level If -Pakistani multiply value by 1.16. Estimated glomerular filtration [...] Clemente DO LAB BLOOD ORDERABLES Final Result [facility] [address] [place] [address] * (ABNORMAL) CBC without differential (12/09/2019 5:07 AM CDT) WBC 8.3 3.8 - 9.9 K/cumm [facility] Hgb 9.1(L) 11.9 - 15.5 g/dL [facility] Hct 28.1(L) 35.6 - 45.5 % [facility] Plt 340 150 - 400 K/cumm [facility] MPV 8.8(L) 9.1 - 12.3 fL [facility] RBC 3.01(L) 3.90 - 5.20 M/cumm [facility] MCV 93.4 81.3 - 96.4 fL [facility] MCH 30.2 27.1 - 33.3 pg [facility] MCHC 32.4 32.3 - 35.7 g/dL [facility] RDW CV 18.0(H) 11.1 - 14.9 % [facility] RDW SD 57.9(H) 35.7 - 48.1 fL [facility] NRBC abs 0.00 0.00 - 0.01 K/cumm [facility] Blood specimen (specimen) 12/09/2019 5:07 AM CDT 12/09/2019 5:07 AM CDT Vaishali Clemente DO LAB BLOOD ORDERABLES Edited Result - Final [facility] [address] [place] [address] * (ABNORMAL) Comprehensive metabolic panel (12/09/2019 5:07 AM CDT) Sodium 136 135 - 145 mmol/L [facility] Potassium, pl 3.7 3.3 - 4.9 mmol/L [facility] Chloride 93(L) 97 - 110 mmol/L [facility] CO2 33(H) 22 - 32 mmol/L [facility] Anion gap 10 2 - 15 mmol/L [facility] BUN 34(H) 8 - 25 mg/dL [facility] Creatinine 0.60 0.60 - 1.10 mg/dL [facility] Glucose 76 70 - 199 mg/dL [facility] Comment: Interpretive Data Fasting glucose >/= [...] 2017. Calcium 9.0 8.5 - 10.3 mg/dL [facility] Bilirubin, total 0.2 0.1 - 1.2 mg/dL [facility] Protein, pl 7.3 6.5 - 8.5 g/dL [facility] Albumin 2.7(L) 3.5 - 5.0 g/dL [facility] Alk phos 36(L) 40 - 130 Units/L [facility] ALT 10 7 - 45 Units/L [facility] AST 21 10 - 45 Units/L [facility] Blood specimen (specimen) 12/09/2019 5:07 AM CDT 12/09/2019 5:07 AM CDT Vaishali Clemente DO LAB BLOOD ORDERABLES Final Result Performing Organization Address [facility] Co de Phone Number [facility] [address] [facility] [place] [place] [address] * (ABNORMAL) Erythrocyte sedimentation rate (12/09/2019 5:07 AM CDT) Erythrocyte sedimentation rate 123(H) 1 - 30 mm/hr [facility] Blood specimen (specimen) 12/09/2019 5:07 AM CDT 12/09/2019 5:07 AM CDT Vaishali Clemente DO LAB BLOOD ORDERABLES Final Result Performing Organization Address [facility] de Phone Number [facility] [address] [facility] [place] [place] [address] * (ABNORMAL) CRP (acute phase) (12/09/2019 5:07 AM CDT) [facility] CRP 22.7(H) <=10.0 mg/L [facility] Blood specimen (specimen) 12/09/2019 5:07 AM CDT 12/09/2019 5:07 AM CDT Vaishali Clemente DO LAB BLOOD ORDERABLES Final Result Performing Organization Address [facility] de Phone Number [facility] [address] [place] [address] * eGFR (12/07/2019 3:30 AM CDT) eGFR 99 mL/min/1.7 3 m2 [facility] Comment: Interpretive Data Reference Interval Normal ?>/= 90 mL/min/1.73m2 Mildly decreased* ? 60 - 89 mL/min/1.73m2 Mildly to moderately decreased ?45 - 59 mL/min/1.73m2 Moderately to severely decreased ??30 - 44 mL/min/1.73m2 Severely decreased ?15 - 29 mL/min/1.73m2 Kidney Failure ?< 15 ??mL/min/1.73m2 *Relative to young adult level If -Pakistani multiply value by 1.16. Estimated glomerular filtration [...] MD LAB BLOOD ORDERABLES Final Re sult [facility] [address] [place] [address] * Differential, auto (12/07/2019 3:30 AM CDT) Neutrophil abs 6.2 1.7 - 6.5 K/cumm [facility] Imm gran abs 0.1 0.0 - 0.1 K/cumm [facility] Lymphocyte abs 1.6 0.8 - 3.3 K/cumm [facility] Monocyte abs 0.6 0.2 - 0.8 K/cumm [facility] Eosinophil abs 0.4 0.0 - 0.5 K/cumm [facility] Basophil abs 0.1 0.0 - 0.1 K/cumm [facility] Neutrophil pct 70.2 % [facility] Comment: Interpretive Data Percent cell count reference ranges are not reported, since discordance with absolute values may lead to misinterpretation of CBC data. Current Interpretive Data was last revised on 2017. Imm gran pct 0.6 % [facility] Comment: Interpretive Data Percent cell count reference ranges are not reported, since discordance with absolute values may lead to misinterpretation of CBC data. Current Interpretive Data was last revised on 2017. Lymphocyte pct 18.1 % [facility] Comment: Interpretive Data Percent cell count reference ranges are not reported, since discordance with absolute values may lead to misinterpretation of CBC data. Current Interpretive Data was last revised on 2017. Monocyte pct 6.4 % [facility] Comment: Interpretive Data Percent cell count reference ranges are not reported, since discordance with absolute values may lead to misinterpretation of CBC data. Current Interpretive Data was last revised on 2017. Eosinophil pct 4.0 % [facility] Comment: Interpretive Data Percent cell count reference ranges are not reported, since discordance with absolute values may lead to misinterpretation of CBC data. Current Interpretive Data was last revised on 2017. Basophil pct 0.7 % [facility] Comment: Interpretive Data Percent cell count reference ranges are not reported, since discordance with absolute values may lead to misinterpretation of CBC data. Current Interpretive Data was last revised on 2017. Blood specimen (specimen) 12/07/2019 3:30 AM CDT 12/07/2019 3:51 AM CDT Bennett Saleh MD LAB BLOOD ORDERABLES Final Re sult [facility] [address] [place] [address] * (ABNORMAL) Basic metabolic panel (12/07/2019 3:30 AM CDT) Sodium 131(L) 135 - 145 mmol/L [facility] Potassium, pl 4.8 3.3 - 4.9 mmol/L [facility] Chloride 91(L) 97 - 110 mmol/L [facility] CO2 29 22 - 32 mmol/L [facility] Anion gap 11 2 - 15 mmol/L [facility] BUN 29(H) 8 - 25 mg/dL [facility] Creatinine 0.56(L) 0.60 - 1.10 mg/dL [facility] Glucose 125 70 - 199 mg/dL [facility] Comment: Interpretive Data Fasting glucose >/= [...] 2017. Calcium 8.6 8.5 - 10.3 mg/dL [facility] Blood specimen (specimen) 12/07/2019 3:30 AM CDT 12/07/2019 3:51 AM CDT us Bennett Saleh MD LAB BLOOD ORDERABLES Final Re sult [facility] [address] [place] [address] * (ABNORMAL) CBC with auto differential (12/07/2019 3:30 AM CDT) WBC 8.9 3.8 - 9.9 K/cumm [facility] Hgb 8.7(L) 11.9 - 15.5 g/dL [facility] Hct 26.1(L) 35.6 - 45.5 % [facility] Plt 251 150 - 400 K/cumm [facility] MPV 9.4 9.1 - 12.3 fL [facility] RBC 2.84(L) 3.90 - 5.20 M/cumm [facility] MCV 91.9 81.3 - 96.4 fL [facility] MCH 30.6 27.1 - 33.3 pg [facility] MCHC 33.3 32.3 - 35.7 g/dL [facility] RDW CV 17.1(H) 11.1 - 14.9 % [facility] RDW SD 57.3(H) 35.7 - 48.1 fL [facility] NRBC abs 0.03(H) 0.00 - 0.01 K/cumm [facility] Blood specimen (specimen) 12/07/2019 3:30 AM CDT 12/07/2019 3:51 AM CDT Bennett Saleh MD LAB BLOOD ORDERABLES Final Re sult Performing Organization Address [facility] Co de Phone Number [facility] [address] [place] [address] * (ABNORMAL) Glucose, random (12/06/2019 11:36 PM CDT) Glucose 65(L) 70 - 199 mg/dL [facility] Comment: Interpretive Data Fasting glucose >/= [...] PM CDT 12/06/2019 11:36 PM CDT Narrative [facility] - 12/07/2019 12:02 AM CDT Per hypoglycemia protocol Bennett Saleh MD LAB BLOOD ORDERABLES Final Re sult Performing Organization Address [facility]/ZIP Co de Phone Number [facility] [address] [place] [address] * Type and screen (12/06/2019 11:41 AM CDT) Veronica, indirect Negative [facility] ABO Rh O Positive [facility] Blood specimen (specimen) 12/06/2019 11:41 AM CDT 12/06/2019 12:09 PM CDT Narrative [facility] - 12/06/2019 12:48 PM CDT Has the patient had Daratumumab or Isatuximab in the past 6 months?->Unknown Bennett Saleh MD LAB BLOOD BANK TEST ORDERABLE S Final Result Performing Organization Address [facility] de Phone Number [facility] [address] [facility] [employer] [place], [place] [id number] * Prepare RBC: 1 Units (12/06/2019 10:16 AM CDT) [facility] Product code [id number] [facility] Unit Number [id number] [facility] Product Blood Type OPOS [facility] Dispense Status PRESUMED TRANSFUSED [facility] Blood specimen (specimen) 12/06/2019 10:16 AM CDT Narrative [facility] - 12/07/2019 10:15 AM CDT Are special requirements needed? (all products are leukoreduced)->No Date required:-[id number] LRRBC # of [id number] Reasons:-Hgb <7 g/dL} Bennett Saleh MD BLOOD BANK PRODUCT ORDERABLES Final Result Performing Organization Address [facility] de Phone Number [facility] [address] [facility] [place] [employer] [place] [address] * eGFR (12/06/2019 4:32 AM CDT) [facility] eGFR 94 mL/min/1.7 3 m2 [facility] Comment: Interpretive Data Reference Interval Normal ?>/= 90 mL/min/1.73m2 Mildly decreased* ? 60 - 89 mL/min/1.73m2 Mildly to moderately decreased ?45 - 59 mL/min/1.73m2 Moderately to severely decreased ??30 - 44 mL/min/1.73m2 Severely decreased ?15 - 29 mL/min/1.73m2 Kidney Failure ?< 15 ??mL/min/1.73m2 *Relative to young adult level If -Pakistani multiply value by 1.16. Estimated glomerular filtration [...] MD LAB BLOOD ORDERABLES Final Re sult [facility] [address] [place] [address] * Differential, auto (12/06/2019 4:32 AM CDT) Neutrophil abs 5.8 1.7 - 6.5 K/cumm [facility] Imm gran abs 0.1 0.0 - 0.1 K/cumm [facility] Lymphocyte abs 2.0 0.8 - 3.3 K/cumm [facility] Monocyte abs 0.8 0.2 - 0.8 K/cumm [facility] Eosinophil abs 0.3 0.0 - 0.5 K/cumm [facility] Basophil abs 0.1 0.0 - 0.1 K/cumm [facility] Neutrophil pct 64.2 % [facility] Comment: Interpretive Data Percent cell count reference ranges are not reported, since discordance with absolute values may lead to misinterpretation of CBC data. Current Interpretive Data was last revised on 2017. Imm gran pct 0.6 % [facility] Comment: Interpretive Data Percent cell count reference ranges are not reported, since discordance with absolute values may lead to misinterpretation of CBC data. Current Interpretive Data was last revised on 2017. Lymphocyte pct 21.9 % [facility] Comment: Interpretive Data Percent cell count reference ranges are not reported, since discordance with absolute values may lead to misinterpretation of CBC data. Current Interpretive Data was last revised on 2017. Monocyte pct 8.9 % [facility] [facility] Comment: Interpretive Data Percent cell count reference ranges are not reported, since discordance with absolute values may lead to misinterpretation of CBC data. Current Interpretive Data was last revised on 2017. Eosinophil pct 3.8 % [facility] Comment: Interpretive Data Percent cell count reference ranges are not reported, since discordance with absolute values may lead to misinterpretation of CBC data. Current Interpretive Data was last revised on 2017. Basophil pct 0.6 % [facility] Comment: Interpretive Data Percent cell count reference ranges are not reported, since discordance with absolute values may lead to misinterpretation of CBC data. Current Interpretive Data was last revised on 2017. Blood specimen (specimen) 12/06/2019 4:32 AM CDT 12/06/2019 4:32 AM CDT Bennett Saleh MD LAB BLOOD ORDERABLES Final Re sult [facility] [address] [place] [address] * (ABNORMAL) CBC with auto differential (12/06/2019 4:32 AM CDT) WBC 9.0 3.8 - 9.9 K/cumm [facility] Hgb 6.6(L) 11.9 - 15.5 g/dL [facility] Hct 20.8(L) 35.6 - 45.5 % [facility] Plt 294 150 - 400 K/cumm [facility] MPV 9.0(L) 9.1 - 12.3 fL [facility] RBC 2.24(L) 3.90 - 5.20 M/cumm [facility] MCV 92.9 81.3 - 96.4 fL [facility] MCH 29.5 27.1 - 33.3 pg [facility] MCHC 31.7(L) 32.3 - 35.7 g/dL [facility] RDW CV 18.0(H) 11.1 - 14.9 % [facility] RDW SD 61.8(H) 35.7 - 48.1 fL [facility] NRBC abs 0.00 0.00 - 0.01 K/cumm [facility] Blood specimen (specimen) 12/06/2019 4:32 AM CDT 12/06/2019 4:32 AM CDT us Bennett Saleh MD LAB BLOOD ORDERABLES Final Re sult [facility] [address] [place] [address] * (ABNORMAL) Basic metabolic panel (12/06/2019 4:32 AM CDT) Sodium 136 135 - 145 mmol/L [facility] Potassium, pl 4.0 3.3 - 4.9 mmol/L [facility] Chloride 92(L) 97 - 110 mmol/L [facility] CO2 34(H) 22 - 32 mmol/L [facility] Anion gap 10 2 - 15 mmol/L [facility] BUN 36(H) 8 - 25 mg/dL [facility] Creatinine 0.64 0.60 - 1.10 mg/dL [facility] Glucose 61(L) 70 - 199 mg/dL [facility] Comment: Interpretive Data Fasting glucose >/= [...] 2017. Calcium 9.0 8.5 - 10.3 mg/dL [facility] Blood specimen (specimen) 12/06/2019 4:32 AM CDT 12/06/2019 4:32 AM CDT us Bennett Saleh MD LAB BLOOD ORDERABLES Final Re sult [facility] [address] Department [place] [address] * eGFR (12/05/2019 4:04 AM CDT) eGFR 92 mL/min/1.7 3 m2 [facility] Comment: Interpretive Data Reference Interval Normal ?>/= 90 mL/min/1.73m2 Mildly decreased* ? 60 - 89 mL/min/1.73m2 Mildly to moderately decreased ?45 - 59 mL/min/1.73m2 Moderately to severely decreased ??30 - 44 mL/min/1.73m2 Severely decreased ?15 - 29 mL/min/1.73m2 Kidney Failure ?< 15 ??mL/min/1.73m2 *Relative to young adult level If -Pakistani multiply value by 1.16. Estimated glomerular filtration [...] CDT 12/05/2019 4:04 AM CDT us Bennett Saelh MD LAB BLOOD ORDERABLES Final Re sult [facility] [address] [place] [address] * (ABNORMAL) Differential, auto (12/05/2019 4:04 AM CDT) Neutrophil abs 7.3(H) 1.7 - 6.5 K/cumm [facility] Imm gran abs 0.1 0.0 - 0.1 K/cumm [facility] Lymphocyte abs 1.8 0.8 - 3.3 K/cumm [facility] Monocyte abs 0.9(H) 0.2 - 0.8 K/cumm [facility] Eosinophil abs 0.1 0.0 - 0.5 K/cumm [facility] Basophil abs 0.1 0.0 - 0.1 K/cumm [facility] Neutrophil pct 71.8 % [facility] Comment: Interpretive Data Percent cell count reference ranges are not reported, since discordance with absolute values may lead to misinterpretation of CBC data. Current Interpretive Data was last revised on 2017. Imm gran pct 0.5 % [facility] Comment: Interpretive Data Percent cell count reference ranges are not reported, since discordance with absolute values may lead to misinterpretation of CBC data. Current Interpretive Data was last revised on 2017. Lymphocyte pct 17.1 % [facility] Comment: Interpretive Data Percent cell count reference ranges are not reported, since discordance with absolute values may lead to misinterpretation of CBC data. Current Interpretive Data was last revised on 2017. Monocyte pct 8.7 % [facility] Comment: Interpretive Data Percent cell count reference ranges are not reported, since discordance with absolute values may lead to misinterpretation of CBC data. Current Interpretive Data was last revised on 2017. Eosinophil pct 1.3 % [facility] Comment: Interpretive Data Percent cell count reference ranges are not reported, since discordance with absolute values may lead to misinterpretation of CBC data. Current Interpretive Data was last revised on 2017. Basophil pct 0.6 % [facility] Comment: Interpretive Data Percent cell count reference ranges are not reported, since discordance with absolute values may lead to misinterpretation of CBC data. Current Interpretive Data was last revised on 2017. Blood specimen (specimen) 12/05/2019 4:04 AM CDT 12/05/2019 4:04 AM CDT Bennett Saleh MD LAB BLOOD ORDERABLES Final Re sult [facility] [address] [place] [address] * (ABNORMAL) Basic metabolic panel (12/05/2019 4:04 AM CDT) Sodium 128(L) 135 - 145 mmol/L [facility] Potassium, pl 3.9 3.3 - 4.9 mmol/L [facility] Chloride 87(L) 97 - 110 mmol/L [facility] CO2 31 22 - 32 mmol/L [facility] Anion gap 10 2 - 15 mmol/L [facility] BUN 41(H) 8 - 25 mg/dL [facility] Creatinine 0.69 0.60 - 1.10 mg/dL [facility] Glucose 86 70 - 199 mg/dL [facility] Comment: Interpretive Data Fasting glucose >/= [...] 2017. Calcium 8.9 8.5 - 10.3 mg/dL [facility] Blood specimen (specimen) 12/05/2019 4:04 AM CDT 12/05/2019 4:04 AM CDT Bennett Saleh MD LAB BLOOD ORDERABLES Final Re sult Performing Organization Address [facility]/ZIP Co de Phone Number [facility] [address] [facility] [place] [place] [address] * (ABNORMAL) CBC with auto differential (12/05/2019 4:04 AM CDT) WBC 10.2(H) 3.8 - 9.9 K/cumm [facility] Hgb 7.0(L) 11.9 - 15.5 g/dL [facility] Hct 21.8(L) 35.6 - 45.5 % [facility] Plt 325 150 - 400 K/cumm [facility] MPV 9.2 9.1 - 12.3 fL [facility] RBC 2.36(L) 3.90 - 5.20 M/cumm [facility] MCV 92.4 81.3 - 96.4 fL [facility] MCH 29.7 27.1 - 33.3 pg [facility] MCHC 32.1(L) 32.3 - 35.7 g/dL [facility] RDW CV 18.1(H) 11.1 - 14.9 % [facility] RDW SD 60.3(H) 35.7 - 48.1 fL [facility] NRBC abs 0.00 0.00 - 0.01 K/cumm [facility] Blood specimen (specimen) 12/05/2019 4:04 AM CDT 12/05/2019 4:04 AM CDT Bennett Saleh MD LAB BLOOD ORDERABLES Final Re sult [facility] [address] [place] [place] [address] * Surgical pathology (12/03/2019 3:53 PM CDT) Tissue (Amputation non-tramatic) 12/03/2019 3:16 PM CDT Comment:No preservative Narrative PATHOLOGY [facility] - 12/16/2019 10:07 PM CDT [place] [id number] [facility], [place], [place] ??[address] Tele: ?? Marti Mueller MD - Correctional Supervisor Lieutenantwashing and screening plant supervisor PATHOLOGY REPORT Patient Name: ??IRIS PASCUAL Address: ??[address] [place] [address] ??[id number] Gender: ??F : ??1955 (Age: 64) Service: ??LTC Location: ??572, ?? Hospital #: ??[id number] Patient Type: ??MB OP in a Bed Accession #: ? [id number] Taken: ? 12/03/2019 Received ? 12/05/2019 Reported: ? 12/16/2019 Physician(s): ? Dr. Arley Peña M.D. Zeke Puenet MD DIAGNOSIS: Extremity, lower, right leg, [id number] amputation: ? -Acute osteomyelitis -Skin, with acute inflammation, ulcer, necrosis, parakeratosis, hyperplastic and reactive epithelial changes -Viable skin and soft tissue margin -Vessels, with calcified plaque 12/16/2019 16:29 Examining Pathologist: Daniel Pool M.D. Report [...] anterior artery is stenosed by yellow plaque. ??Rotor Pilot sections are submitted as follows: ??A1 - bone marrow from bony margin of resection; A2 - skin and soft tissue from resection surface; A3 - skin from heel of foot; A4 ??bone deep to the necrotic skin; A5 - popliteal, posterior and anterior vessels. ??Cassettes A4 and A5 are submitted for decalcification. [facility]/12/06/2019 17:28 ? [facility] MICROSCOPIC DESCRIPTION: Microscopic examination supports the above captioned diagnosis. ??Sections of bone marrow scrapings from bony margin appear viable. Clerical Data Follows A; [id number], [id number] REPORT IMAGES AND/OR SCANNED DOCUMENTS ONLY VIEWABLE IN PDF FORMAT The immunohistochemical test(s) cited in this report, if any, was developed and its performance characteristics determined by [facility] Pathology Department. ??It has not been cleared or approved by the U.S. Food and Drug Administration. ??The FDA has determined that such clearance or approval is not necessary. ??This test is used for clinical purposes. ??It should not be regarded as investigational or for research. ??[facility] Laboratory is certified under the [...] MD LAB PATHOLOGY ORDERABLES Final Result PATHOLOGY [facility] Laboratory Receiving [address] [place] [address] * Prepare RBC: 1 Units (12/03/2019 3:17 PM CDT) Product code [id number] [facility] Unit Number [id number] 3-T [facility] Product Blood Type OPOS [facility] Dispense Status RETURNED [facility] Blood specimen (specimen) 12/03/2019 3:17 PM CDT Narrative [facility] - 12/05/2019 7:28 AM CDT Are special requirements needed? (all products are leukoreduced)->No Date required:-20191203 LRRBC # of [id number] Reasons:-Intra-op transfusion} us Amanda Jefferson MD BLOOD BANK PRODUCT ORDERABLE S Final Result Performing Organization Address [facility] Co de Phone Number [facility] [address] [place] [place] [address] * Check Sample (12/03/2019 5:41 AM CDT) ABO Rh O Positive [facility] HCLL OTHER 12/03/2019 5:41 AM CDT 12/03/2019 7:18 AM CDT us Bennett Saleh MD LAB BLOOD ORDERABLES Final Re sult Performing Organization Address [facility] de Phone Number [facility] [address] [place] [address] * eGFR (12/03/2019 5:41 AM CDT) eGFR 93 mL/min/1.7 3 m2 [facility] Comment: Interpretive Data Reference Interval Normal ?>/= 90 mL/min/1.73m2 Mildly decreased* ? 60 - 89 mL/min/1.73m2 Mildly to moderately decreased ?45 - 59 mL/min/1.73m2 Moderately to severely decreased ??30 - 44 mL/min/1.73m2 Severely decreased ?15 - 29 mL/min/1.73m2 Kidney Failure ?< 15 ??mL/min/1.73m2 *Relative to young adult level If -Pakistani multiply value by 1.16. Estimated glomerular filtration [...] MD LAB BLOOD ORDERABLES Final Re sult [facility] [address] [place] [address] * Differential, auto (12/03/2019 5:41 AM CDT) Neutrophil abs 5.8 1.7 - 6.5 K/cumm [facility] Imm gran abs 0.0 0.0 - 0.1 K/cumm [facility] Lymphocyte abs 1.4 0.8 - 3.3 K/cumm [facility] Monocyte abs 0.6 0.2 - 0.8 K/cumm [facility] Eosinophil abs 0.2 0.0 - 0.5 K/cumm [facility] Basophil abs 0.1 0.0 - 0.1 K/cumm [facility] Neutrophil pct 71.2 % [facility] Comment: Interpretive Data Percent cell count reference ranges are not reported, since discordance with absolute values may lead to misinterpretation of CBC data. Current Interpretive Data was last revised on 2017. Imm gran pct 0.2 % [facility] Comment: Interpretive Data Percent cell count reference ranges are not reported, since discordance with absolute values may lead to misinterpretation of CBC data. Current Interpretive Data was last revised on 2017. Lymphocyte pct 17.2 % [facility] Comment: Interpretive Data Percent cell count reference ranges are not reported, since discordance with absolute values may lead to misinterpretation of CBC data. Current Interpretive Data was last revised on 2017. Monocyte pct 7.7 % [facility] Comment: Interpretive Data Percent cell count reference ranges are not reported, since discordance with absolute values may lead to misinterpretation of CBC data. Current Interpretive Data was last revised on 2017. Eosinophil pct 2.7 % [facility] Comment: Interpretive Data Percent cell count reference ranges are not reported, since discordance with absolute values may lead to misinterpretation of CBC data. Current Interpretive Data was last revised on 2017. Basophil pct 1.0 % [facility] Comment: Interpretive Data Percent cell count reference ranges are not reported, since discordance with absolute values may lead to misinterpretation of CBC data. Current Interpretive Data was last revised on 2017. Blood specimen (specimen) 12/03/2019 5:41 AM CDT 12/03/2019 5:41 AM CDT us Bennett Saleh MD LAB BLOOD ORDERABLES Final Re sult [facility] [address] [place] [address] * 25-Hydroxyvitamin D2 and D3, serum (12/03/2019 5:41 AM CDT) 25-OH Vit D, D2 fraction <4.0 ng/mL [facility] 25-OH Vit D, D3 fraction 33 ng/mL [facility] 25-OH Vit D 33 ng/mL [facility] Comment: REFERENCE VALUE 25-HYDROXY D TOTAL (D2+D3) Optimum levels in the healthy population are 20-50, patients with bone disease may benefit from higher levels within this range. ADDITIONAL INFORMATION This test was developed and its performance characteristics determined by [facility] in a manner consistent with CLIA requirements. This test has not been cleared or approved by the U.S. Food and Drug Administration. Test Performed by: [facility] - [facility] [address] [place] [address] Marine Engine Machinist Apprentice: Abhijit Berg M.D. Ph.D.; CLIA# [id number] Blood specimen (specimen) 12/03/2019 5:41 AM CDT 12/03/2019 5:41 AM CDT us Bennett Saleh MD LAB BLOOD ORDERABLES Final Re sult [facility] [address] [place] [address] * (ABNORMAL) Comprehensive metabolic panel (12/03/2019 5:41 AM CDT) Sodium 139 135 - 145 mmol/L [facility] Potassium, pl 3.7 3.3 - 4.9 mmol/L [facility] Chloride 94(L) 97 - 110 mmol/L [facility] CO2 33(H) 22 - 32 mmol/L [facility] Anion gap 12 2 - 15 mmol/L [facility] BUN 21 8 - 25 mg/dL [facility] Creatinine 0.67 0.60 - 1.10 mg/dL [facility] Glucose 75 70 - 199 mg/dL [facility] Comment: Interpretive Data Fasting glucose >/= [...] 2017. Calcium 9.3 8.5 - 10.3 mg/dL [facility] Bilirubin, total 0.2 0.1 - 1.2 mg/dL [facility] Protein, pl 8.1 6.5 - 8.5 g/dL [facility] Albumin 3.0(L) 3.5 - 5.0 g/dL [facility] Alk phos 31(L) 40 - 130 Units/L [facility] ALT 12 7 - 45 Units/L [facility] AST 23 10 - 45 Units/L [facility] Blood specimen (specimen) 12/03/2019 5:41 AM CDT 12/03/2019 5:41 AM CDT us Bennett Saleh MD LAB BLOOD ORDERABLES Final Re sult [facility] [address] [place] [address] * (ABNORMAL) CBC with auto differential (12/03/2019 5:41 AM CDT) WBC 8.2 3.8 - 9.9 K/cumm [facility] Hgb 9.3(L) 11.9 - 15.5 g/dL [facility] Hct 29.0(L) 35.6 - 45.5 % [facility] Plt 408(H) 150 - 400 K/cumm [facility] MPV 9.1 9.1 - 12.3 fL [facility] RBC 3.17(L) 3.90 - 5.20 M/cumm [facility] MCV 91.5 81.3 - 96.4 fL [facility] MCH 29.3 27.1 - 33.3 pg [facility] MCHC 32.1(L) 32.3 - 35.7 g/dL [facility] RDW CV 17.9(H) 11.1 - 14.9 % [facility] RDW SD 60.4(H) 35.7 - 48.1 fL [facility] NRBC abs 0.00 0.00 - 0.01 K/cumm [facility] Blood specimen (specimen) 12/03/2019 5:41 AM CDT 12/03/2019 5:41 AM CDT Bennett Saleh MD LAB BLOOD ORDERABLES Final Re sult Performing Organization Address [facility]/ZIP Co de Phone Number [facility] [address] [place] [address] * eGFR (12/02/2019 7:19 AM CDT) eGFR 102 mL/min/1.7 3 m2 [facility] Comment: Interpretive Data Reference Interval Normal ?>/= 90 mL/min/1.73m2 Mildly decreased* ? 60 - 89 mL/min/1.73m2 Mildly to moderately decreased ?45 - 59 mL/min/1.73m2 Moderately to severely decreased ??30 - 44 mL/min/1.73m2 Severely decreased ?15 - 29 mL/min/1.73m2 Kidney Failure ?< 15 ??mL/min/1.73m2 *Relative to young adult level If -Pakistani multiply value by 1.16. Estimated glomerular filtration [...] 7:19 AM CDT 12/02/2019 7:19 AM CDT Bennett Saleh MD LAB BLOOD ORDERABLES Final Re sult Performing Organization Address [facility]/ZIP Co de Phone Number [facility] [address] [employer] [place], [place] [id number] * (ABNORMAL) Comprehensive metabolic panel (12/02/2019 7:19 AM CDT) Sodium 140 135 - 145 mmol/L [facility] Potassium, pl 3.6 3.3 - 4.9 mmol/L [facility] Chloride 95(L) 97 - 110 mmol/L [facility] CO2 32 22 - 32 mmol/L [facility] Anion gap 13 2 - 15 mmol/L [facility] BUN 27(H) 8 - 25 mg/dL [facility] Creatinine 0.50(L) 0.60 - 1.10 mg/dL [facility] Glucose 120 70 - 199 mg/dL [facility] Comment: Interpretive Data Fasting glucose >/= [...] 2017. Calcium 9.1 8.5 - 10.3 mg/dL [facility] Bilirubin, total 0.2 0.1 - 1.2 mg/dL [facility] Protein, pl 7.7 6.5 - 8.5 g/dL [facility] Albumin 3.2(L) 3.5 - 5.0 g/dL [facility] Alk phos 32(L) 40 - 130 Units/L [facility] ALT 13 7 - 45 Units/L [facility] AST 20 10 - 45 Units/L [facility] Blood specimen (specimen) 12/02/2019 7:19 AM CDT 12/02/2019 7:19 AM CDT us Bennett Saleh MD LAB BLOOD ORDERABLES Final Re sult [facility] [address] Department [place] [address] * (ABNORMAL) CRP (acute phase) (12/02/2019 7:19 AM CDT) Pathologist [facility] CRP 15.3(H) <=10.0 mg/L [facility] Blood specimen (specimen) 12/02/2019 7:19 AM CDT 12/02/2019 7:19 AM CDT us Vaishali Clemente DO LAB BLOOD ORDERABLES Final Result [facility] [address] [place] [address] * Differential, auto (12/02/2019 7:11 AM CDT) Pathologist [facility] Neutrophil abs 4.2 1.7 - 6.5 K/cumm [facility] Imm gran abs 0.0 0.0 - 0.1 K/cumm [facility] Lymphocyte abs 1.5 0.8 - 3.3 K/cumm [facility] Monocyte abs 0.6 0.2 - 0.8 K/cumm [facility] Eosinophil abs 0.2 0.0 - 0.5 K/cumm [facility] Basophil abs 0.1 0.0 - 0.1 K/cumm [facility] Neutrophil pct 64.2 % [facility] Comment: Interpretive Data Percent cell count reference ranges are not reported, since discordance with absolute values may lead to misinterpretation of CBC data. Current Interpretive Data was last revised on 2017. Imm gran pct 0.2 % [facility] Comment: Interpretive Data Percent cell count reference ranges are not reported, since discordance with absolute values may lead to misinterpretation of CBC data. Current Interpretive Data was last revised on 2017. Lymphocyte pct 22.9 % [facility] Comment: Interpretive Data Percent cell count reference ranges are not reported, since discordance with absolute values may lead to misinterpretation of CBC data. Current Interpretive Data was last revised on 2017. Monocyte pct 8.4 % [facility] Comment: Interpretive Data Percent cell count reference ranges are not reported, since discordance with absolute values may lead to misinterpretation of CBC data. Current Interpretive Data was last revised on 2017. Eosinophil pct 2.9 % [facility] Comment: Interpretive Data Percent cell count reference ranges are not reported, since discordance with absolute values may lead to misinterpretation of CBC data. Current Interpretive Data was last revised on 2017. Basophil pct 1.4 % [facility] Comment: Interpretive Data Percent cell count reference ranges are not reported, since discordance with absolute values may lead to misinterpretation of CBC data. Current Interpretive Data was last revised on 2017. Blood specimen (specimen) 12/02/2019 7:11 AM CDT 12/02/2019 7:11 AM CDT Bennett Saleh MD LAB BLOOD ORDERABLES Final Re sult [facility] [address] [place] [address] * (ABNORMAL) CBC with auto differential (12/02/2019 7:11 AM CDT) WBC 6.5 3.8 - 9.9 K/cumm [facility] Hgb 9.5(L) 11.9 - 15.5 g/dL [facility] Hct 30.9(L) 35.6 - 45.5 % [facility] Plt 404(H) 150 - 400 K/cumm [facility] MPV 9.5 9.1 - 12.3 fL [facility] RBC 3.24(L) 3.90 - 5.20 M/cumm [facility] MCV 95.4 81.3 - 96.4 fL [facility] MCH 29.3 27.1 - 33.3 pg [facility] MCHC 30.7(L) 32.3 - 35.7 g/dL [facility] RDW CV 18.0(H) 11.1 - 14.9 % [facility] RDW SD 62.8(H) 35.7 - 48.1 fL [facility] NRBC abs 0.00 0.00 - 0.01 K/cumm [facility] Blood specimen (specimen) 12/02/2019 7:11 AM CDT 12/02/2019 7:11 AM CDT us Bennett Saleh MD LAB BLOOD ORDERABLES Final Re sult Performing Organization Address [facility]/ZIP Co de Phone Number [facility] [address] Department of [employer] [place], [place] [id number] * (ABNORMAL) Erythrocyte sedimentation rate (12/02/2019 7:11 AM CDT) Pathologist [facility] Erythrocyte sedimentation rate 129(H) 1 - 30 mm/hr [facility] Blood specimen (specimen) 12/02/2019 7:11 AM CDT 12/02/2019 7:11 AM CDT us Vaishali Clemente DO LAB BLOOD ORDERABLES Final Result Performing Organization Address [facility] Co de Phone Number [facility] [address] Department of [employer] [place], [place] [id number] * Type and screen (12/01/2019 6:34 PM CDT) Pathologist [facility] Veronica, indirect Negative [facility] ABO Rh O Positive [facility] Blood specimen (specimen) 12/01/2019 6:34 PM CDT 12/01/2019 6:35 PM CDT Narrative [facility] - 12/01/2019 7:12 PM CDT Has the patient had Daratumumab or Isatuximab in the past 6 months?->Unknown us Arley Peña MD LAB BLOOD BANK TEST ORDERABLES Final Result Performing Organization Address [facility] Co de Phone Number [facility] [address] Department of [employer] [place], [place] [id number] * (ABNORMAL) COVID-19 Coronavirus RNA Nasopharyngeal (11/30/2019 3:18 AM CDT) Pathologist [facility] COVID-19 RNA Detected( A) [facility] [facility] Comment: Interpretive Data Testing performed at [facility] Molecular Infectious Disease Laboratory. The 2019-Novel [...] last revised on 2019. Testing performed by: [facility], [address] [place]., [address] Nasopharyngeal 11/30/2019 3: 18 AM CDT 11/30/2019 8:02 AM CDT Narrative [facility] - 11/30/2019 5:16 PM CDT Is the patient experiencing any symptoms consistent with COVID (eg. Fever, cough, shortness of breath)?->No What is the reason for testing?->Screening prior to scheduled (>12 hr) surgery or procedure Arley Peña MD LAB MICROBIOLOGY - [facility] Final Result [facility] [address] Department [place] [address] * COVID-19 Coronavirus RNA Nasopharyngeal (11/28/2019 4:00 PM CDT) COVID-19 RNA Not Detected [facility] Comment: Interpretive Data Testing performed at [facility] Molecular Infectious Disease Laboratory. The 2019-Novel [...] last revised on 2019. Testing performed by: [facility], [address] [place] [address], [place]., [address] Nasopharyngeal 11/28/2019 4: 00 PM CDT 11/28/2019 7:42 PM CDT Narrative [facility] - 11/29/2019 2:22 AM CDT Needs negative test to remove from isolation Is the patient experiencing any symptoms consistent with COVID (eg. Fever, cough, shortness of breath)?->No What is the reason for testing?->Discharge planning/removal of isolation Bennett Saleh MD LAB MICROBIOLOGY - GENERAL OR DERABLES Final Result Performing Organization Address [facility]/ZIP Co de Phone Number [facility] [address] [place] [address] * (ABNORMAL) Blood gas, arterial (11/26/2019 11:15 AM CDT) pH, Art 7.42 7.35 - 7.45 [facility] PCO2, Arterial 44 35 - 45 mmHg [facility] PO2, Arterial 74(L) 83 - 108 mmHg [facility] HCO3 Art (Calculated) 28 20 - 30 mmol/L [facility] BE, art 3 mmol/L [facility] Comment: Interpretive Data No Reference Range Established Current Interpretive Data was last revised on 2017 O2 Sat Art (Calculated) 95 94 - 98 % [facility] Blood specimen (specimen) 11/26/2019 11:15 AM CDT 11/26/2019 11:22 AM CDT Bennett Saleh MD LAB BLOOD ORDERABLES Final Re sult Performing Organization Address [facility]/ZIP Co de Phone Number [facility] [address] [place] [place] [address] * eGFR (11/25/2019 4:49 AM CDT) eGFR 93 mL/min/1.7 3 m2 [facility] Comment: Interpretive Data Reference Interval Normal ?>/= 90 mL/min/1.73m2 Mildly decreased* ? 60 - 89 mL/min/1.73m2 Mildly to moderately decreased ?45 - 59 mL/min/1.73m2 Moderately to severely decreased ??30 - 44 mL/min/1.73m2 Severely decreased ?15 - 29 mL/min/1.73m2 Kidney Failure ?< 15 ??mL/min/1.73m2 *Relative to young adult level If -Pakistani multiply value by 1.16. Estimated glomerular filtration [...] Clemente DO LAB BLOOD ORDERABLES Final Result [facility] [address] [place] [address] * Differential, auto (11/25/2019 4:49 AM CDT) Neutrophil abs 5.9 1.7 - 6.5 K/cumm [facility] Imm gran abs 0.0 0.0 - 0.1 K/cumm [facility] Lymphocyte abs 1.7 0.8 - 3.3 K/cumm [facility] Monocyte abs 0.5 0.2 - 0.8 K/cumm [facility] Eosinophil abs 0.2 0.0 - 0.5 K/cumm [facility] Basophil abs 0.1 0.0 - 0.1 K/cumm [facility] Neutrophil pct 70.1 % [facility] Comment: Interpretive Data Percent cell count reference ranges are not reported, since discordance with absolute values may lead to misinterpretation of CBC data. Current Interpretive Data was last revised on 2017. Imm gran pct 0.2 % [facility] Comment: Interpretive Data Percent cell count reference ranges are not reported, since discordance with absolute values may lead to misinterpretation of CBC data. Current Interpretive Data was last revised on 2017. Lymphocyte pct 20.4 % [facility] Comment: Interpretive Data Percent cell count reference ranges are not reported, since discordance with absolute values may lead to misinterpretation of CBC data. Current Interpretive Data was last revised on 2017. Monocyte pct 6.4 % [facility] Comment: Interpretive Data Percent cell count reference ranges are not reported, since discordance with absolute values may lead to misinterpretation of CBC data. Current Interpretive Data was last revised on 2017. Eosinophil pct 1.8 % [facility] Comment: Interpretive Data Percent cell count reference ranges are not reported, since discordance with absolute values may lead to misinterpretation of CBC data. Current Interpretive Data was last revised on 2017. Basophil pct 1.1 % [facility] Comment: Interpretive Data Percent cell count reference ranges are not reported, since discordance with absolute values may lead to misinterpretation of CBC data. Current Interpretive Data was last revised on 2017. Blood specimen (specimen) 11/25/2019 4:49 AM CDT 11/25/2019 4:49 AM CDT Vaishali Clemente DO LAB BLOOD ORDERABLES Final Result [facility] [address] Department [place] [address] * (ABNORMAL) Erythrocyte sedimentation rate (11/25/2019 4:49 AM CDT) Erythrocyte sedimentation rate 101(H) 1 - 30 mm/hr [facility] Blood specimen (specimen) 11/25/2019 4:49 AM CDT 11/25/2019 4:49 AM CDT Vaishali Clemente DO LAB BLOOD ORDERABLES Final Result Performing Organization Address City/[facility]/ZIP Co de Phone Number [facility] [address] [place] [place] [address] * (ABNORMAL) CRP (acute phase) (11/25/2019 4:49 AM CDT) CRP 27.7(H) <=10.0 mg/L [facility] Blood specimen (specimen) 11/25/2019 4:49 AM CDT 11/25/2019 4:49 AM CDT Vaishali Clemente DO LAB BLOOD ORDERABLES Final Result Performing Organization Address [facility] de Phone Number [facility] [address] [place] [address] * (ABNORMAL) Comprehensive metabolic panel (11/25/2019 4:49 AM CDT) Sodium 140 135 - 145 mmol/L [facility] Potassium, pl 3.4 3.3 - 4.9 mmol/L [facility] Chloride 95(L) 97 - 110 mmol/L [facility] CO2 31 22 - 32 mmol/L [facility] Anion gap 14 2 - 15 mmol/L [facility] BUN 32(H) 8 - 25 mg/dL [facility] Creatinine 0.66 0.60 - 1.10 mg/dL [facility] Glucose 171 70 - 199 mg/dL [facility] Comment: Interpretive Data Fasting glucose >/= [...] 2017. Calcium 8.8 8.5 - 10.3 mg/dL [facility] Bilirubin, total 0.2 0.1 - 1.2 mg/dL [facility] Protein, pl 7.7 6.5 - 8.5 g/dL [facility] Albumin 3.2(L) 3.5 - 5.0 g/dL [facility] Alk phos 38(L) 40 - 130 Units/L [facility] ALT 14 7 - 45 Units/L [facility] AST 24 10 - 45 Units/L [facility] Comment:Slightly Hemolyzed S pecimen Blood specimen (specimen) 11/25/2019 4:49 AM CDT 11/25/2019 4:49 AM CDT us Vaishali Clemente DO LAB BLOOD ORDERABLES Final Result [facility] [address] Department [place] [address] * (ABNORMAL) CBC with auto differential (11/25/2019 4:49 AM CDT) WBC 8.5 3.8 - 9.9 K/cumm [facility] Hgb 8.1(L) 11.9 - 15.5 g/dL [facility] Hct 25.4(L) 35.6 - 45.5 % [facility] Plt 461(H) 150 - 400 K/cumm [facility] MPV 9.3 9.1 - 12.3 fL [facility] RBC 2.79(L) 3.90 - 5.20 M/cumm [facility] MCV 91.0 81.3 - 96.4 fL [facility] MCH 29.0 27.1 - 33.3 pg [facility] MCHC 31.9(L) 32.3 - 35.7 g/dL [facility] RDW CV 16.9(H) 11.1 - 14.9 % [facility] RDW SD 54.4(H) 35.7 - 48.1 fL [facility] NRBC abs 0.00 0.00 - 0.01 K/cumm [facility] Blood specimen (specimen) 11/25/2019 4:49 AM CDT 11/25/2019 4:49 AM CDT Vaishali Clemente DO LAB BLOOD ORDERABLES Final Result Performing Organization Address [facility]/ZIP Co de Phone Number [facility] [address] Department [place] [address] * (ABNORMAL) Iron profile w/ IBC (11/22/2019 5:52 AM CDT) Iron 40 35 - 145 mcg/dL [facility] TIBC 127(L) 250 - 400 mcg/dL [facility] Transferrin saturation 32 20 - 50 % [facility] Blood specimen (specimen) 11/22/2019 5:52 AM CDT 11/22/2019 5:52 AM CDT Bennett Saleh MD LAB BLOOD ORDERABLES Final Re sult Performing Organization Address [facility] Co de Phone Number [facility] [address] [place] [address] * XR Chest 1 Vw (11/22/2019 5:17 [...] AM CDT) eGFR 94 mL/min/1.7 3 m2 [facility] Comment: Interpretive Data Reference Interval Normal ?>/= 90 mL/min/1.73m2 Mildly decreased* ? 60 - 89 mL/min/1.73m2 Mildly to moderately decreased ?45 - 59 mL/min/1.73m2 Moderately to severely decreased ??30 - 44 mL/min/1.73m2 Severely decreased ?15 - 29 mL/min/1.73m2 Kidney Failure ?< 15 ??mL/min/1.73m2 *Relative to young adult level If -Pakistani multiply value by 1.16. Estimated glomerular filtration [...] ORDERABLES Final Re sult Performing Organization Address [facility] Co de Phone Number [facility] [address] [facility] [employer] [place], [place] [id number] * (ABNORMAL) TSH (11/22/2019 3:38 AM CDT) Thyroid Stimulating Hormone 13.03(H) 0.30 - 4.20 mcIUnit/mL [facility] Blood specimen (specimen) 11/22/2019 3:38 AM CDT 11/22/2019 3:38 AM CDT Bennett Saleh MD LAB BLOOD ORDERABLES Final Re sult Performing Organization Address [facility] Co de Phone Number [facility] [address] [place] [place] [address] * Magnesium (11/22/2019 3:38 AM CDT) Magnesium 1.8 1.4 - 2.5 mg/dL [facility] Blood specimen (specimen) 11/22/2019 3:38 AM CDT 11/22/2019 3:38 AM CDT Bennett Saleh MD LAB BLOOD ORDERABLES Final Re sult Performing Organization Address [facility] Co de Phone Number [facility] [address] [place] [place] [address] * (ABNORMAL) Comprehensive metabolic panel (11/22/2019 3:38 AM CDT) Sodium 131(L) 135 - 145 mmol/L [facility] Potassium, pl 4.1 3.3 - 4.9 mmol/L [facility] Comment:Moderately Hemolyzed Specimen Chloride 90(L) 97 - 110 mmol/L [facility] CO2 30 22 - 32 mmol/L [facility] Anion gap 11 2 - 15 mmol/L [facility] BUN 30(H) 8 - 25 mg/dL [facility] Creatinine 0.65 0.60 - 1.10 mg/dL [facility] Glucose 105 70 - 199 mg/dL [facility] Comment: Interpretive Data Fasting glucose >/= [...] 2017. Calcium 8.7 8.5 - 10.3 mg/dL [facility] Bilirubin, total 0.2 0.1 - 1.2 mg/dL [facility] Protein, pl 7.6 6.5 - 8.5 g/dL [facility] Albumin 2.6(L) 3.5 - 5.0 g/dL [facility] Alk phos 39(L) 40 - 130 Units/L [facility] ALT 18 7 - 45 Units/L [facility] Comment:Moderately Hemolyzed Specimen AST 49(H) 10 - 45 Units/L [facility] Comment:Moderately Hemolyzed Specimen Blood specimen (specimen) 11/22/2019 3:38 AM CDT 11/22/2019 3:38 AM CDT us Bennett Saleh MD LAB BLOOD ORDERABLES Final Re sult [facility] [address] Department of Laboratories [place] [id number] * Differential, auto (11/22/2019 3:37 AM CDT) Neutrophil abs 6.1 1.7 - 6.5 K/cumm [facility] Imm gran abs 0.0 0.0 - 0.1 K/cumm [facility] Lymphocyte abs 1.7 0.8 - 3.3 K/cumm [facility] Monocyte abs 0.5 0.2 - 0.8 K/cumm [facility] Eosinophil abs 0.2 0.0 - 0.5 K/cumm [facility] Basophil abs 0.1 0.0 - 0.1 K/cumm [facility] Neutrophil pct 70.9 % [facility] Comment: Interpretive Data Percent cell count reference ranges are not reported, since discordance with absolute values may lead to misinterpretation of CBC data. Current Interpretive Data was last revised on 2017. Imm gran pct 0.5 % [facility] Comment: Interpretive Data Percent cell count reference ranges are not reported, since discordance with absolute values may lead to misinterpretation of CBC data. Current Interpretive Data was last revised on 2017. Lymphocyte pct 19.5 % [facility] Comment: Interpretive Data Percent cell count reference ranges are not reported, since discordance with absolute values may lead to misinterpretation of CBC data. Current Interpretive Data was last revised on 2017. Monocyte pct 6.1 % [facility] Comment: Interpretive Data Percent cell count reference ranges are not reported, since discordance with absolute values may lead to misinterpretation of CBC data. Current Interpretive Data was last revised on 2017. Eosinophil pct 2.1 % [facility] Comment: Interpretive Data Percent cell count reference ranges are not reported, since discordance with absolute values may lead to misinterpretation of CBC data. Current Interpretive Data was last revised on 2017. Basophil pct 0.9 % [facility] Comment: Interpretive Data Percent cell count reference ranges are not reported, since discordance with absolute values may lead to misinterpretation of CBC data. Current Interpretive Data was last revised on 2017. Blood specimen (specimen) 11/22/2019 3:37 AM CDT 11/22/2019 3:37 AM CDT Bennett Saleh MD LAB BLOOD ORDERABLES Final Re sult Performing Organization Address City/[facility]/ZIP Co de Phone Number [facility] [address] [place] [address] * (ABNORMAL) CBC with auto differential (11/22/2019 3:37 AM CDT) WBC 8.6 3.8 - 9.9 K/cumm [facility] Hgb 8.0(L) 11.9 - 15.5 g/dL [facility] Hct 25.6(L) 35.6 - 45.5 % [facility] Plt 478(H) 150 - 400 K/cumm [facility] MPV 9.0(L) 9.1 - 12.3 fL [facility] RBC 2.75(L) 3.90 - 5.20 M/cumm [facility] MCV 93.1 81.3 - 96.4 fL [facility] MCH 29.1 27.1 - 33.3 pg [facility] MCHC 31.3(L) 32.3 - 35.7 g/dL [facility] RDW CV 16.2(H) 11.1 - 14.9 % [facility] RDW SD 53.8(H) 35.7 - 48.1 fL [facility] NRBC abs 0.00 0.00 - 0.01 K/cumm [facility] Blood specimen (specimen) 11/22/2019 3:37 AM CDT 11/22/2019 3:37 AM CDT Bennett Saleh MD LAB BLOOD ORDERABLES Final Re sult [facility] [address] [place] [address] documented in this encounter Visit Diagnoses Diagnosis Gangrene (CMS/HCC) (HCC) Gangrene documented in this encounter Active and Recently Administered Medications Orders Medications Ordered That Jesus ht Not Have Been Administered Count Last Ordered Date First Ordered Date sodium chloride 0.9% IVPB 0-250 mL 1 2019 sodium chloride 0.9 % irrigation 1 12/03/19 20 Nursing Count Last Ordered Date First Orde [...] documented as of this encounter Care Teams Control Systems Specialist Relationship Specialty Start Date End Date Zeke Puente MD [address] [place] [address] PCP - General 12/02/18 Damon Swanson DO [address] [place] [address] Medical Oncologist/Optical Lathe Operator Hematology and Oncology 10/25/17 Karl Smith Jr., MD [address] [place] [address] Surgeon General Surgery 11/07/19 documented as of this encounter
--- OUTSIDE RECORDS SUMMARY | 2024-02-26 21:37 | XMS_ITS | Encounter Summary ---
Author Organization [facility] Healthcare Address [address] [place] [address] Care Team Providers Care Station Detective Name Role Phone KikiDamon dale DO Unavailable Zeke Puente MD Primary Care Provider [phone] Sarah Baldwin MD, Karl Ralph. Unavailable [phone] Encounter Details Date Type Department Care Team (Latest Contact Info) Description 06/17/2020 6:05 AM CDT - 06/17/2020 11:59 PM CDT Hospital Encounter [facility] [address] [place] [address] Lisa Pradhan MD [address] [place] [address] [place] [address] Discharge Disposition: Discharge to home or self [...] declined 06/17/2020 How often do you attend moravian or advent serv ices? Patient declined 06/17/2020 Do you belong to any clubs o r organizations such as moravian groups, unions, fraternal or athletic groups, or school groups? Patient declined 06/17/2020 How often do you attend meet ings of the clubs or organizations you belong to? Patient declined 06/17/2020 Are you , , di vorced, , never , or living with a partner? Patient declined 06/17/2020 Overall Financial Resource Strain (CARDIA) Answe r [...] on file Legal Sex Female 12:30 PM [employer]ILITY [employer]TER Gender Identity Not on file Sexual Orientation Not on file documented as of this encounter Medications at Time of Discharge amLODIPine (NORVASC) 10 mg tablet Take 1 tablet (10 mg total) by mouth daily atorvastatin (LIPITOR) 40 mg tablet Take 1 tablet (40 mg total) by mouth daily levothyroxine (SYNTHROID) 100 mcg tablet Take 1 tablet (100 mcg total) by mouth youth pastor before breakfast 30 tablet 1 06/25/2020 gabapentin (NEURONTIN) 300 mg capsule Take 300 mg by mouth 2 (two) times a day 1 gabapentin (NEURONTIN) 400 mg capsule Take 1 capsule (400 mg total) by mouth 2 (two) times a day 60 capsule 11 06/24/2020 3 hydroCHLOROthiaz negrita (HYDRODIURIL) 12.5 mg tablet Take 12.5 mg by mouth daily 1 levothyroxine (SYNTHROID) 75 mcg tablet Take 75 mcg by mouth youth pastor before breakfast 1 oxyCODONE (ROXICODONE) 5 mg immediate release tabletIndication s:Pain Take 1 tablet (5 mg total) by mouth every 4 (four) hours as needed for pain 30 tablet 06/24/[address] (PROTONIX) 40 mg EC tablet Take 1 tablet (40 mg total) by mouth daily 30 tablet 11 06/24/2020 3 potassium chloride ER (potassium chloride ER) 10 mEq CR tablet Take 10 mEq by mouth 2 (two) times a day 1 traMADoL (ULTRAM) 50 mg tablet Take 50 mg by mouth every 6 (six) hours as needed for pain 1 documented as of this encounter Discharge Disposition Disposition Code Departure Means Destination Discharge to home or self care documented in this encounter Miscellaneous Notes * Provider Query - Joann Jones - 06/17/2020 6:05 AM CDT Specify if the diagnosis mesenteric ischemia with spontaneous GI perforation has been confirmed or ruled out after study. _X_ Diagnosis confirmed ___ Diagnosis ruled out ___ Other, specify below ___ Clinically unable to rule out Additional Provider Response: Clinical Indicators/Treatments: 1) Discharge Summary signed by Arley Peña I have seen her in ICU. Clinically, her symptoms did not match with any mesenteric ischemia. She had no abdominal pain and therefore we have been observing. CLINICAL IMPRESSION History of mesenteric ischemia which was questionable raised by CT scan. 2) CT Abdomen Pelvis W Contrast Impression: 1. CT findings as discussed which are highly consistent with interval development of gastric ischemia at the fundus/cardia with portal venous gas and trace amounts of extraluminal air along the greater curvature of the stomach. 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 Critical findings communicated by Julianne to Dr. Ascencio at 2157 hours. 3) Progress Notes signed by Arley Peña, DISCUSSION This patient does not have an acute [...] also does not justify for any acute emergency in terms of fact that her white cell count is 8800, hemoglobin 8.5, hematocrit 25.1. Her renal function panel is practically normal. Her GFR is 93. Lactate level was normal. 4) Progress Notes by Harlan Salamacna MD at 06/22/2020 Indication For ICU Admission; abnormal abdominal CT with portal venous gas & extraluminal air around her stomach. 5) Progress Notes by Summer Anguiano MD at 06/22/2020 possible gastric ischemia with spontaneous GI perforation causing hematemesis Hematemesis now resolved NPO for now Not felt to be an operative candidate; on Zosyn Use of terms such as likely, suspected, possible, or probable (associated with a specific diagnosisthat is being evaluated, monitored, or treated as if it exists) are acceptable and can be coded in the inpatient setting when documented at the time of discharge. This documentation will become part of the patient???s medical record. Sincerely, [facility] Management documented in this encounter Plan of Treatment Not on file documented as of this encounter Procedures Procedure Name Priority Date/Time Associated Diagnosis Comments US ZAYNAB IP Routine 06/17/2020 10:41 AM CDT documented in this encounter Results * US ZAYNAB (06/17/2020 10:41 AM CDT) Anatomical Region Laterality Modality Vascular N/A Ultrasound 06/17/2020 6:15 PM CDT Impressions 06/17/2020 6:15 PM CDT 1. ??The patient has a right rknjm-dth-[id number] amputation. No studies were done on this [...] foot pain. The patient has a right fpqpo-oxo-wffi amputation. Right side: The patient has a right rgrpt-uao-hknj amputation Left side: The brachial pressure is [...] foot pain. The patient has a right nmjus-cat-yyeg amputation. Right side: The patient has a right majrw-ris-mlzi amputation Left side: The brachial pressure is [...] IMPRESSION: 1. The patient has a right zyzlc-vmu-mwmh amputation. No studies were done on this [...] by: Franco Martinez M.D. 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 07/08/2019 10/28/2020 5:00 AM C DT documented as of this encounter Care Teams Station Detective Relationship Specialty Start Date End Date Zeke Puente MD [address] [place] [address] PCP - General 12/02/18 Damon Swanson DO [address] [place] [address] Medical Oncologist/[place] Measurer Hematology and Oncology 10/25/17 Karl Smith Jr., MD [address] [place] [address] Surgeon General Surgery 11/07/19 documented as of this encounter
--- OUTSIDE RECORDS SUMMARY | 2024-02-26 21:38 | XMS_ITS | Encounter Summary ---
Author Organization [facility] Address [address] [place] [address] Phone Care Team Providers Care Property Disposal Manager Name Role Phone Damon Swanson DO Unavailable [phone] Zeke Puente MD Primary Care Provider [phone] Encounter Details Date Type Department Care Team (Late st Contact Info) Description 02/22/2019 Orders Only [facility] [place], [place] Carina Ho MD [address] [address] Social History Tobacco Use Types Packs/Day Years Used Date Smoking Tobacco: Never Smokeless Tobacco: Never Alcohol Use Standard Drinks/Week Comments No 0 (1 standard drink = 0.6 oz pur e alcohol) PHQ-2 Answer Date Recorded PHQ-2 Score 0 11/03/2018 Comments Unknown Sex and Gender Information Value Date Recorded Sex Assigned at Not on file Legal Sex Female 12:30 PM [employer]UC[employer] TE[employer]ER Gender Identity Not on file Sexual Orientation Not on file documented as of this encounter Plan of Treatment Not on file documented as of this encounter Procedures Procedure Name Priority Date/Time Associated Diagnosis Comments SURGICAL PATHOLOGY Routine 02/22/2019 3: 41 PM [employer]UCATION TEACHER documented in this encounter Results * Surgical pathology (02/22/2019 3:41 PM PRESCHO[employer] EDUCATION TEACHER) 02/22/2019 3:41 PM [employer]CHO[employer] SPECIAL EDUCATION TEACHER 02/22/2019 3:41 PM PRESCHOOL SPECIAL EDUCATION TEACHER Narrative 02/25/2019 10:14 AM PRESCHO[employer] SPECIAL EDUCATION TEACHER [facility] Department of Pathology [facility] [place], [place] [address] ?? Final Report Patient Name: IRIS GIL : ??1955 (Age: 64) Gender: ??F Address: ??[address] [place] [address] [address] [facility] #: [id number] Service: DEFAULT Location: GI Lab [facility] Patient Type: Same Day Service ? Taken: 02/22/2019 Received: 02/22/2019 Accessioned: 02/22/2019 Reported: 02/25/2019 Physician(s): Carina Ho M.D. Diagnosis: A) Stomach, biopsy: - Unremarkable body-type mucosa. - Negative for H. pylori. B) Random colon biopsies: Unremarkable colonic mucosa, no histopathologic abnormalities. C) Sigmoid colon polyp, polypectomy: Tubular adenoma. Harlan Brunett M.D. Report Electronically Reviewed and Signed Out By ??Harlan Burnett M.D. 02/25/2019 10:14:53 Specimen(s) Received: A: Gastric biopsy B: Random colon biopsy C: Sigmoid polyp Microscopic Description: Microscopic examination is performed. Clinical History: Abdominal pain, abnormal imaging EGD-duodenitis, gastritis, erosive esophagitis, colon-sigmoid polyp, diverticulosis EGD with bx Colonoscopy with polypectomy + biopsy Gross Description A) The specimen container is labeled with the patient's name and gastric biopsy . ??Received in formalin are two fragments of soft tate-pink tissue which range in greatest dimension from 3-4 mm. ??This tissue is submitted entirely in cassettes A1. B) The specimen container is labeled with the patient's name and random colon biopsy . ??Received in formalin are four fragments of soft tate tissue which range in greatest dimension from 2-3 mm. ??This tissue is submitted entirely in cassettes B1. C) The specimen container is labeled with the patient's name and sigmoid polyp . ??Received in formalin is a single fragment of tate polypoid tissue which measures 7 x 7 x 5 mm. ??The specimen is bisected and submitted entirely in cassette C1. bo/02/22/2019 15:53 ??CARLOS Braxton Carina Ho MD LAB PATHOLOGY ORDERABLES Final Result documented in this encounter Visit Diagnoses Not on filedocumented in this encounter Care Teams Property Disposal Manager Relationship Specialty Start Date End Date Zeke Puente MD [address] [place] [address] PCP - General 12/02/18 Damon Swanson DO [address] [place] [id number] Medical Oncologist/Pot Press Operator Hematology and Oncology 10/25/17 documented as of this encounter
--- OUTSIDE RECORDS SUMMARY | 2024-02-26 21:38 | XMS_ITS | Encounter Summary ---
Author Organization [facility] Address [address] [place] [address] Phone Care Team Providers Care Single Resource Boss Name Role Phone Damon Swanson DO Unavailable [phone] Rene Shelton MD Primary Care Provider [phone] Encounter Details Date Type Department Care Team (Late st Contact Info) Description 06/12/2018 Orders Only [facility] Oncology [address] [place] [address] [place] [id number] Damon Swanson, DO [address] [address] Social History Tobacco Use Types Packs/Day Years Used Date Smoking Tobacco: Never Smokeless Tobacco: Never Alcohol Use Standard Drinks/Week Comments No 0 (1 standard drink = 0.6 oz pur e alcohol) Comments Unknown Sex and Gender Information Value Date Recorded Sex Assigned at Not on file Legal Sex Female 12:30 PM SHRINKER Gender Identity Not on file Sexual Orientation Not on file documented as of this encounter Plan of Treatment Not on file documented as of this encounter Procedures Procedure Name Priority Date/Time Associated Diagnosis Comments CBC WITH AUTO DIFFERENTIAL Routine 06/12/2018 1:03 PM CDT documented in this encounter Results * (ABNORMAL) CBC with auto differential (06/12/2018 1:03 PM CDT) WBC 3.7 3.4 - 10.8 x10E3/uL [facility] - 01 RBC 3.62(L) 3.77 - 5.28 x10E6/uL [facility] - 01 Hgb 11.2 11.1 - 15.9 g/dL [facility] - 01 Hct 33.4(L) 34.0 - 46.6 % [facility] - 01 MCV 92 79 - 97 fL [facility] - 01 MCH 30.9 26.6 - 33.0 pg [facility] - 01 MCHC 33.5 31.5 - 35.7 g/dL [facility] - 01 Rdw 14.1 12.3 - 15.4 % [facility] - 01 Platelets 196 150 - 379 x10E3/uL [facility] - 01 Neutrophils pct 63 Not Estab. % [facility] - 01 Lymphs pct 27 Not Estab. % [facility] - 01 Monocytes pct 9 Not Estab. % [facility] - 01 Eosinophils pct 1 Not Estab. % [facility] - 01 Basophil pct 0 Not Estab. % [facility] - 01 Neutrophil abs 2.4 1.4 - 7.0 x10E3/uL [facility] - 01 Lymphs (Absolute) 1.0 0.7 - 3.1 x10E3/uL [facility] - 01 Monocyte abs 0.3 0.1 - 0.9 x10E3/uL [facility] - 01 Eosinophils, abs 0.0 0.0 - 0.4 x10E3/uL [facility] - 01 Basophils, abs 0.0 0.0 - 0.2 x10E3/uL [facility] - 01 06/12/2018 1:03 PM CDT 06/12/2018 Narrative [facility] - 06/12/2018 2:08 PM CDT Performed at: ??01 - [facility] [address] [facility], [place], [place] ??[id number] Terrazzo Laborer: Rodrigo Escobar MD, Phone: ??[phone] us Damon Swanson DO LAB BLOOD ORDERABLES Final R esult [facility] - 01 documented in this encounter Visit Diagnoses Not on filedocumented in this encounter Care Teams Single Resource Boss Relationship Specialty Start Date End Date Rene Shelton MD [address] [phone] PCP - General Family Medicine 06/12/18 12/01/18 Damon Swanson DO [facility] [phone] Medical Oncologist/Breakfast And Room Attendant Hematology and Oncology 10/25/17 documented as of this encounter
--- OUTSIDE RECORDS SUMMARY | 2024-02-26 21:38 | XMS_ITS | Encounter Summary ---
Author Organization [facility] Healthcare Address [address] [place] [address] Care Team Providers Care Housekeeping Lead Name Role Phone Damon Swanson DO Unavailable [phone] Zeke Puente MD Primary Care Provider [phone] Encounter Details Date Type Department Care Team (Late st Contact Info) Description 01/25/2019 2:09 PM DIRECTOR OF SECURITY - 01/25/2019 11:13 PM [facility] Hospital Encounter [facility] [address] [place] [address] Unknown, BhavyaTere Rodríguez, DO [address] [facility] [place] [address] Dee Lin MD [address] [place] [address] Discharge Disposition: Discharge to detention facility Social History Tobacco Use Types Packs/Day Years Used Date Smoking Tobacco: Never Smokeless Tobacco: Never Alcohol Use Standard Drinks/Week Comments No 0 (1 standard drink = 0.6 oz pur e alcohol) PHQ-2 Answer Date Recorded PHQ-2 Score 0 11/03/2018 Comments Unknown Sex and Gender Information Value Date Recorded Sex Assigned at Not on file Legal Sex Female 12:30 PM DIRECTOR OF SECURITY Gender Identity Not on file Sexual Orientation Not on file documented as of this encounter Last Filed Vital Signs Vital Sign Reading Time Taken Comments Blood Pressure 120/67 01/25/2019 2:25 PM DIRECTOR OF SECURITY Pulse 81 01/25/2019 2:25 PM DIRECTOR OF SECURITY Temperature 36.8 ??C (98.3 ??F) 01/25/2019 2:25 PM CS T Respiratory Rate - - Oxygen Saturation 100% 01/25/2019 2:25 PM DIRECTOR OF SECURITY Inhaled Oxygen Concentration - - Weight 75 kg (165 lb 5.6 oz) 01/25/2019 2:25 PM DIRECTOR OF SECURITY Height - - Body Mass Index 30.24 12/02/2018 2:52 PM CDT documented in this encounter Medications at Time of Discharge amLODIPine (NORVASC) 10 mg tablet 0 08/09/2017 06/17/19 21 atorvastatin (LIPITOR) 80 mg tablet 0 08/08/2017 11/20/19 20 donepezil (ARICEPT) 5 mg tabletIndicatio ns:memory Take 1 tablet (5 mg total) by mouth nightly. 30 tablet 3 10/30/2017 11/20/19 20 furosemide (LASIX) 40 mg tablet Take 1 tablet (40 mg total) by mouth daily 30 tablet 2 09/10/2018 11/20/19 20 insulin glargine (LANTUS U-100 INSULIN) 100 unit/mL injection 03/21/2017Lantus, inj 100/ml Vial (ml)sub-Qas directedCurrent Medication 03/21/2017 11/20/19 20 lisinopril (PRINIVIL,ZESTR IL) 20 mg tablet 0 08/09/2017 11/20/19 20 metFORMIN (GLUCOPHAGE) 500 mg tablet Take 500 mg by mouth 2 (two) times a day with meals. 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 30 tablet 1 05/15/2018 11/20/19 20 documented as of this encounter Discharge Disposition Disposition Code Departure Means Destination Discharge to detention facility documented in this encounter Plan of Treatment Not on file documented as of this encounter Procedures Procedure Name Priority Date/Time Associated Diagnosis Comments URINALYSIS, COMPLETE W/REFLEX TO CULTURE Routine 01/25/2019 8:00 PM DIRECTOR OF SECURITY URINE CULTURE Routine 01/25/2019 8:00 PM DIRECTOR OF SECURITY CBC WITH AUTO DIFFERENTIAL Routine 01/25/2019 4:08 PM DIRECTOR OF SECURITY PROTIME-INR Routine 01/25/2019 4:08 PM DIRECTOR OF SECURITY LIPASE Routine 01/25/2019 4:08 PM DIRECTOR OF SECURITY COMPREHENSIVE METABOLIC PANEL Routine 01/25/2019 4:[address] ABDOMEN PELVIS W CONTRAST 01/25/2019 12:00 AM DIRECTOR OF SECURITY documented in this encounter Results * Urine culture Urine, in and out catheter (01/25/2019 8:00 PM DIRECTOR OF SECURITY) CULTURE URINE [facility] Organism [facility] CULTURE URINE >100,000 CFU/ml [facility] Urine, in and out catheter 01/25/2019 8:00 PM DIRECTOR OF SECURITY 01/25/2019 8:07 PM DIRECTOR OF SECURITY us Tere Ruby DO LAB MICROBIOLOGY - GENERAL ORDE MORALES Final Result [facility] [address] [place] [address], [facility] [phone] * (ABNORMAL) URINALYSIS, COMPLETE W/REFLEX TO CULTURE (01/25/2019 8:00 PM DIRECTOR OF SECURITY) Ur Collection Type STRAIGHT CATH [facility] Ur Culture Indicated? C S INDICATED [facility] Comment: Culture report to follow. Urine Color YELLOW YELLOW [facility] Urine Clarity [facility] Urine Glucose (UA) NORMAL NORMAL mg/dL [facility] Urine Bilirubin NEGATIVE NEGATIVE mg/dl [facility] Urine Ketones NEGATIVE NEGATIVE mg/dL [facility] Ur Specific [place] >1.060(H) 1.005 - 1.025 [facility] Urine Blood 0.2(A) NEGATIVE mg/dl [facility] Urine pH 5.0 5.0 - 8.0 [facility] Urine Protein 30(A) NEGATIVE mg/dL [facility] Urine Urobilinogen NORMAL NORMAL mg/dL [facility] Urine Nitrite NEGATIVE NEGATIVE [facility] Ur Leukocyte Esterase 500(A) NEGATIVE Bernadette/ul [facility] Ur Microscopic Review Indicated or Ordered [facility] Urine RBC 166 0 - 2 /HPF [facility] Urine WBC 1654 0 - 2 /HPF [facility] Urine WBC Clumps Marked /HPF [facility] Urine Bacteria Rare /HPF [facility] Urine Yeast (Budding) Marked /HPF [facility] Ur Squamous Epith Cells Rare /HPF [facility] 01/25/2019 8:00 PM DIRECTOR OF SECURITY 01/25/2019 8:07 PM DIRECTOR OF SECURITY Narrative [facility] - 01/25/2019 8:17 PM DIRECTOR OF SECURITY Indication(s) for ordering ?? Dysuria bw Straight catheter Resulting Agency Comment ER us Tere Ruby DO LAB URINE ORDERABLES Final Resu lt [facility] [address] [place] [address], [facility] [phone] * Lipase (01/25/2019 4:08 PM DIRECTOR OF SECURITY) Pathologist [facility] Lipase 16 13 - 60 U/L [facility] 01/25/2019 4:08 PM DIRECTOR OF SECURITY 01/25/2019 4:15 PM DIRECTOR OF SECURITY Narrative Resulting Agency Comment ER us Tere Ruby DO LAB BLOOD ORDERABLES Final Resu lt [facility] [address] [phone] * (ABNORMAL) Comprehensive metabolic panel (01/25/2019 4:08 PM DIRECTOR OF SECURITY) [facility] Sodium 132(L) 135 - 145 mmol/L [facility] Potassium 4.1 3.3 - 5.1 mmol/L [facility] Chloride 94(L) 96 - 108 mmol/L [facility] Carbon Dioxide 26 22 - 32 mmol/L [facility] Anion Gap 12 7 - 16 [facility] Glucose 309(H) 70 - 100 mg/dL [facility] BUN 18 8 - 25 mg/dL [facility] Creatinine 0.9 0.5 - 1.1 mg/dL [facility] Comment: NOTE: Estimated GFR (Cockroft-Gault) will NOT be calculated unless patient Height and Weight were entered. Also, Kidney Disease Stage (GFR) and Estimated GFR (Cockroft-Gault) will NOT be calculated if Creatinine result is <0.2. Kidney Disease Stage 81 mL/MIN [facility] Comment: NOTE; ??The GFR is an estimated value using the creatinine, sex, age, and race of the patient. THE Estimated Kidney Disease GFR is validated for AGES 18-70 YEARS STAGE ?mL/Min ?DESCRIPTION ??1 ?90 mL/min or more ?Normal or elevated GFR ??2 ? 60-89 mL/min ?Mildly decreased GFR ??3 ? 30-59 mL/min ?Moderately decreased GFR ??4 ? 15-29 mL/min ?Severely decreased GFR ??5 ? <15 mL/min ? Kidney failure or on dialysis Calcium 9.2 8.6 - 10.3 mg/dL [facility] Total Protein 7.9 6.4 - 8.3 g/dL [facility] Albumin 4.2 3.5 - 5.0 g/dL [facility] Globulin 3.7(H) 2.3 - 3.5 gm/dL [facility] Albumin/Globulin Ratio 1.1 1.1 - 1.8 [facility] Total Bilirubin 0.8 0.0 - 1.2 mg/dL [facility] AST 18 0 - 32 U/L [facility] ALT 16 0 - 33 U/L [facility] Alkaline Phosphatase 60 35 - 104 U/L [facility] 01/25/2019 4:08 PM DIRECTOR OF SECURITY 01/25/2019 4:15 PM DIRECTOR OF SECURITY Narrative Resulting Agency Comment ER us Tere Ruby DO LAB BLOOD ORDERABLES Final Resu lt [facility] [address] [place] [address], [facility] [phone] * Protime-INR (01/25/2019 4:08 PM DIRECTOR OF SECURITY) PT 13.5 12.2 - 14.8 SECONDS [facility] Comment: New reference ranges in use 6-28-19. INR 1.00 [facility] Comment: Recommended Therapeutic range for Oral Anticoagulant Therapy No anti-coagulation therapy ? Normal Range: ?0.8-1.4 Anti-coagulation therapy ? Low intensity therapy ?2.0-3.0 ? High intensity therapy ?? 2.5-3.5 Critical Value ? Greater than or equal to 5.0 Patients should be monitored for serious bleeding. 01/25/2019 4:08 PM DIRECTOR OF SECURITY 01/25/2019 4:15 PM DIRECTOR OF SECURITY Narrative Resulting Agency Comment ER Tere Ruby DO LAB BLOOD ORDERABLES Final Resu lt [facility] [address] [place] [address], [facility] [phone] * (ABNORMAL) CBC with auto differential (01/25/2019 4:08 PM DIRECTOR OF SECURITY) WBC 8.1 3.8 - 9.9 X10 3/ul [facility] RBC 3.60(L) 3.90 - 5.20 x10 6/ul [facility] Hemoglobin 10.7(L) 11.9 - 15.5 g/dL [facility] Hct 32.2(L) 35.6 - 45.5 % [facility] MCV 89.4 81.3 - 96.4 fl [facility] MCH 29.7 27.1 - 33.3 pg [facility] MCHC 33.2 32.3 - 35.7 g/dl [facility] RDW 14.2 11.1 - 14.9 % [facility] Plt Count 242 150 - 400 x10 3/ul [facility] MPV 9.8 9.1 - 12.3 fl [facility] Neut % 77.8 % [facility] Immature Gran % 0.5 % [facility] Lymph % 15.6 % [facility] [place] % 4.9 % [facility] Eos % 0.7 % [facility] AUTO BASO % 0.5 % [facility] NEUTROPHIL ABS # 6.3 1.7 - 6.5 x10 3/ul [facility] Immature Gran # 0.0 0.0 - 0.1 x10 3/ul [facility] Absolute Lymphs (auto) 1.3 0.8 - 3.3 x10 3/ul [facility] Absolute Monos (auto) 0.4 0.2 - 0.8 x10 3/ul [facility] Absolute Eos (auto) 0.1 0.0 - 0.5 x10 3/ul [facility] BASOPHIL ABS # 0.0 0.0 - 0.1 x10 3/ul [facility] Nucleat RBC Rel Count 0.0 #/100WBC [facility] NRBC abs 0.00 0.00 - 0.01 x10 3/ul [facility] Absolute Neutrophils 6,300 200 - 8,000 /ul [facility] 01/25/2019 4:08 PM DIRECTOR OF SECURITY 01/25/2019 4:15 PM DIRECTOR OF SECURITY Narrative Resulting Agency Comment ER us Tere Ruby DO LAB BLOOD ORDERABLES Final Resu lt [facility] [address] [place] [address], [facility] [phone] * CT Abdomen Pelvis W Contrast (01/25/2019 12:00 AM DIRECTOR OF SECURITY) Anatomical Region Laterality Modality Body N/A Computed Tomogra phy 01/25/2019 5:29 PM DIRECTOR OF SECURITY Narrative 01/25/2019 5:39 PM DIRECTOR OF SECURITY Patient Name: IRIS GIL ?Ordering Tere Rosenthal DO ?? D.O.B: 1955 ? Exam Date: 15/19 ?? 0000 ?? Age: 64 ?Sex: Female ? MR#: [id number] ?? Loc: ? RADIOLOGY REPORT ?? Order #[id number] ?? CT Scan ? CT Abd/Pelvis W IV Contrast ? Signed ?? EXAM DESCRIPTION: ??CT Abd/Pelvis W IV Contrast ? REASON FOR STUDY: ??Pain to the mid and right abdomen with nausea for 1 day. ? TECHNIQUE: ??CT scan of the abdomen and pelvis performed with intravenous and ?? without oral contrast using helical scanning technique with dynamic ?? intravenous contrast injection. Reconstructed coronal and sagittal MPR images ?? reviewed. All images stored on PACS. ? Automated exposure control was used as a dose optimization technique for this ?? examination. ? CONTRAST TYPE/DOSE: ??100 mL of Optiray 350 injected via right hand ? COMPARISON: ??CT abdomen and pelvis dated 07/24/2017, chest CT dated 11/18/2017. ? FINDINGS: ? LOWER CHEST: There is linear subsegmental atelectasis at both lung bases. ??No ?? focal pneumonic consolidation. ??The heart is enlarged. ??Partially visualized ?? moderate-sized pericardial effusion was seen previously on 11/18/2017. ? LIVER: Diffuse fatty infiltration of the liver. ??A few tiny calcifications are ?? again noted and likely reflect calcified granulomas. ? GALLBLADDER: No calcified gallstone. ? BILE DUCTS: No intrahepatic or extrahepatic ductal dilatation. ? SPLEEN: Multiple calcified granulomas are again seen. ? PANCREAS: Enhances homogeneously, no adjacent fat stranding. ? ADRENALS: Normal. ? KIDNEYS/URINARY TRACT: The bilateral kidneys enhance symmetrically. ? Circumferential urinary bladder wall thickening. ? GI: Suboptimal assessment of the bowel due to lack of oral contrast. ??Small ?? hiatal hernia. ??Majority of the small bowel loops are under distended. ? Postoperative changes at the right hemicolon. ??Scattered multifocal apparent ?? colonic wall thickening. ??No bowel obstruction. ? PERITONEUM: There is no free fluid in the abdomen or intraperitoneal free air. ? RETROPERITONEUM: No retroperitoneal lymphadenopathy. ? REPRODUCTIVE: The uterus is seen. ? VASCULATURE: Calcified and noncalcified plaque at the abdominal aorta. ? MUSCULOSKELETAL: Previous ventral wall abdominal hernia repair. ??The large ?? partially peripherally calcified low-density collection overlying the mash ?? measuring up to 8.1 x 9.7 x 15 cm is again noted and likely reflects a ?? seroma/chronic hematoma. ? Also, partially visualized 3.8 x 4.1 cm low-density area along the deep margin ?? of the right breast is similar when compared to the previous CT of 11/18/2017 ?? and is presumed to be a postoperative seroma. ? A few scattered rounded lucent foci in the lumbar spine are similar when ?? compared to the previous CT of 07/24/2017 and likely reflect intraosseous ?? hemangiomas. ? IMPRESSION: ? 1. ??Circumferential urinary bladder wall thickening in keeping with cystitis. ? Correlate with urinalysis. ? 2. ??Apparent multifocal colonic wall thickening may be related to under ?? distension versus colitis. ??Correlate clinically. ??No bowel obstruction. ? 3. ??Continued moderate pericardial effusion when compared to the previous ?? chest CT of 11/18/2017. ? 4. ??Additional findings as above. ? THIS IS AN ELECTRONICALLY VERIFIED FINAL REPORT ?? 01/25/2019 5:39 PM - Electronically signed by Mohit Ortez D.O. ?? Mohit Ortez D.O. ? AP ?? D: ??01/25/2019 5:39 PM ?? T: ? Report ID: [id number] ?? Reading Location: ??[id number] ? REPORT ELECTRONICALLY SIGNED IN OTHER VENDOR SYSTEM ?? Resulting Agency Comment E Procedure Note Mohit Ortez DO - 01/25/2019 Patient Name: IRIS GIL Dr: Tere Ruby DO D.O.B: 1955 Exam Date: 01/25/19 0000 Age: 64 Sex: Female MR#: [id number] Loc: RADIOLOGY REPORT Order #[id number] CT Scan CT Abd/Pelvis W IV Contrast Signed EXAM DESCRIPTION: CT Abd/Pelvis W IV Contrast REASON FOR STUDY: Pain to the mid and right abdomen with nausea for 1day. TECHNIQUE: CT scan of the abdomen and pelvis performed with intravenousand without oral contrast using helical scanning technique with dynamic intravenous contrast injection. Reconstructed coronal and sagittal MPRimages reviewed. All images stored on PACS. Automated exposure control was used as a dose optimization technique forthis examination. CONTRAST TYPE/DOSE: 100 mL of Optiray 350 injected via right hand COMPARISON: CT abdomen and pelvis dated 07/24/2017, chest CT dated11/18/2017. FINDINGS: LOWER CHEST: There is linear subsegmental atelectasis at both lung bases.No focal pneumonic consolidation. The heart is enlarged. Partiallyvisualized moderate-sized pericardial effusion was seen previously on 11/18/2017. LIVER: Diffuse fatty infiltration of the liver. A few tinycalcifications are again noted and likely reflect calcified granulomas. GALLBLADDER: No calcified gallstone. BILE DUCTS: No intrahepatic or extrahepatic ductal dilatation. SPLEEN: Multiple calcified granulomas are again seen. PANCREAS: Enhances homogeneously, no adjacent fat stranding. ADRENALS: Normal. KIDNEYS/URINARY TRACT: The bilateral kidneys enhance symmetrically. Circumferential urinary bladder wall thickening. GI: Suboptimal assessment of the bowel due to lack of oral contrast.Small hiatal hernia. Majority of the small bowel loops are under distended. Postoperative changes at the right hemicolon. Scattered multifocalapparent colonic wall thickening. No bowel obstruction. PERITONEUM: There is no free fluid in the abdomen or intraperitoneal freeair. RETROPERITONEUM: No retroperitoneal lymphadenopathy. REPRODUCTIVE: The uterus is seen. VASCULATURE: Calcified and noncalcified plaque at the abdominal aorta. MUSCULOSKELETAL: Previous ventral wall abdominal hernia repair. Thelarge partially peripherally calcified low-density collection overlying themash measuring up to 8.1 x 9.7 x 15 cm is again noted and likely reflects a seroma/chronic hematoma. Also, partially visualized 3.8 x 4.1 cm low-density area along the deepmargin of the right breast is similar when compared to the previous CT of11/18/2017 and is presumed to be a postoperative seroma. A few scattered rounded lucent foci in the lumbar spine are similar when compared to the previous CT of 07/24/2017 and likely reflect intraosseous hemangiomas. IMPRESSION: 1. Circumferential urinary bladder wall thickening in keeping withcystitis. Correlate with urinalysis. 2. Apparent multifocal colonic wall thickening may be related to under distension versus colitis. Correlate clinically. No bowel obstruction. 3. Continued moderate pericardial effusion when compared to the previous chest CT of 11/18/2017. 4. Additional findings as above. THIS IS AN ELECTRONICALLY VERIFIED FINAL REPORT 01/25/2019 5:39 PM - Electronically signed by Mohit CASTRO T: Report ID: [id number] Reading Location: [place] [address] REPORT ELECTRONICALLY SIGNED IN OTHER VENDOR SYSTEM Tere Ruby DO IMManuel CT PROCEDURES Final Result documented in this encounter Visit Diagnoses Not on filedocumented in this encounter Care Teams Housekeeping Lead Relationship Specialty Start Date End Date Zeke Puente MD [address] [place] [address] PCP - General 12/02/18 Damon Swanson DO [address] [place] [address] Medical Oncologist/Jewel Bearing Grinder Hematology and Oncology 10/25/17 documented as of this encounter
--- OUTSIDE RECORDS SUMMARY | 2024-02-26 21:38 | XMS_ITS | Encounter Summary ---
Author Organization [facility] Healthcare Address [address] [place] [address] Care Team Providers Care Pocket Builder Name Role Phone Damon Swanson DO Unavailable [phone] Zeke Puente MD Primary Care Provider [phone] Sarah Baldwin MD, Karl Ralph. 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
--- OUTSIDE RECORDS SUMMARY | 2024-02-26 21:38 | XMS_ITS | Encounter Summary ---
Author Organization [facility] Healthcare Address [address] [place] [address] Care Team Providers Care Greenskeeper Laborer Name Role Phone Damon Swanson DO Unavailable [phone] Rene Shelton MD Primary Care Provider [phone] Encounter Details Date Type Department Care Team (Latest Contact Info) Description 06/21/2018 2:05 PM CDT - 06/21/2018 11:59 PM CDT Hospital Encounter [facility]IM Rene Shelton MD [address] [place] [id number] Discharge Disposition: Discharge to home or self care Social History Tobacco Use Types Packs/Day Years Used Date Smoking Tobacco: Never Smokeless Tobacco: Never Alcohol Use Standard Drinks/Week Comments No 0 (1 standard drink = 0.6 oz pur e alcohol) Comments Unknown Sex and Gender Information Value Date Recorded Sex Assigned at Not on file 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
--- OUTSIDE RECORDS SUMMARY | 2024-02-26 21:38 | XMS_ITS | Encounter Summary ---
Author Organization 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
--- OUTSIDE RECORDS SUMMARY | 2024-02-26 21:38 | XMS_ITS | Encounter Summary ---
Author Organization [facility] Facility Care Team Providers Care Dial Painter Name Role Phone Damon Swanson DO Unavailable [phone] Rene Shelton MD Primary Care Provider [phone] Encounter Details Date Type Department Care Team (Latest Contact Info) Description 06/21/2018 Travel Social History Tobacco Use Types Packs/Day Years Used Date Smoking Tobacco: Never Smokeless Tobacco: Never Alcohol Use Standard Drinks/Week Comments No 0 (1 standard drink = 0.6 oz pur e alcohol) Comments Unknown Sex and Gender Information Value Date Recorded Sex Assigned at Not on file Legal Sex Female 12:30 PM SECOND FLOOR OPERATOR Gender Identity Not on file Sexual Orientation Not on file documented as of this encounter Plan of Treatment Not on file documented as of this encounter Visit Diagnoses Not on filedocumented in this encounter Care Teams Dial Painter Relationship Specialty [place] [address] [place] [id number] PCP - General Family Medicine 06/12/18 12/01/18 Damon Swanson DO [address] [id number] Medical Oncologist/Cad Librarian Hematology and Oncology 10/25/17 documented as of this encounter
--- OUTSIDE RECORDS SUMMARY | 2024-02-26 21:38 | XMS_ITS | Encounter Summary ---
Author Organization [facility] Healthcare Address [address] [place] [address] Care Team Providers Care Immigration Officer Name Role Phone Damon Swanson DO Unavailable [phone] Zeke Puente MD Primary Care Provider [phone] Encounter Details Date Type Department Care Team (Late st Contact Info) Description 02/22/2019 6:40 AM GENERAL FARM HAND - 02/22/2019 10:42 AM GENERAL FARM HAND Hospital Encounter [facility] OP INTERIM GeorgiaCarina MD [address] [facility] [address] [place] [id number] Discharge Disposition: Discharge to home or self [...] on file Legal Sex Female 12:30 PM GENERAL FARM HAND Gender Identity Not on file Sexual Orientation Not on file documented as of this encounter Last Filed Vital Signs Vital Sign Reading Time Taken Comments Blood Pressure 132/78 02/21/2019 3:32 PM GENERAL FARM HAND Pulse 84 02/21/2019 3:32 PM GENERAL FARM HAND Temperature 36.6 ??C (97.8 ??F) 02/21/2019 3:32 PM CS T Respiratory Rate - - Oxygen Saturation 100% 02/21/2019 3:32 PM GENERAL FARM HAND Inhaled Oxygen Concentration - - Weight 83 kg (183 lb) 02/21/2019 3:32 PM GENERAL FARM HAND Height 157.5 cm (5' 2 ) 02/21/2019 3:32 PM GENERAL FARM HAND Body Mass Index 33.47 02/21/2019 3:32 PM GENERAL FARM HAND documented in this encounter Medications at Time [...] Procedure Name Priority Date/Time Associated Diagnosis Comments SCAN - PATHOLOGY 02/25/2019 12:0 0 AM GENERAL FARM HAND ECG 12-LEAD 02/22/2019 7:24 AM GENERAL FARM HAND documented in this encounter Results * SCAN - PATHOLOGY (02/25/2019 12:00 AM GENERAL FARM HAND) Narrative 02/25/2019 12:00 AM GENERAL FARM HAND Ordered by an unspecified provider. us Historical Provider Final Res ult * ECG 12 lead (02/22/2019 7:24 AM GENERAL FARM HAND) Ventricular Rate EKG/Min 75 BPM [facility] Atrial Rate 75 BPM [facility] ID-Interval (MSEC) 160 ms [facility] QRS-Interval (MSEC) 98 ms [facility] QT-Interval (MSEC) 398 ms [facility] QTc 444 ms [facility] P Lutz 54 degrees [facility] R Lutz -33 degrees [facility] T Lutz 33 degrees [facility] Diagnosis Normal sinus rhythm Left axis deviation Cannot rule out Anterior infarct (cited on or before 18-NOV-2017) Abnormal ECG When compared with ECG of 31-JUL-2018 10:47, Questionable change in initial forces of Anterolateral leads Nonspecific T wave abnormality, improved in Lateral leads [facility] 02/22/2019 7:24 AM GENERAL FARM HAND 02/22/2019 9:44 AM GENERAL FARM HAND Narrative Resulting Agency Comment OUTPAT us Bela Stephens MD ECG ORDERABLES Final Result [facility] [address] [place] [address], [facility] documented in this encounter Visit Diagnoses Not on filedocumented in this encounter Care Teams Immigration Officer Relationship Specialty Start Date End Date Zeke Puente MD [address] [place] [address] PCP - General 12/02/18 Damon Swanson DO [address] [place] [id number] Medical Oncologist/Statistical Reporting Analyst Hematology and Oncology 10/25/17 documented as of this encounter
--- OUTSIDE RECORDS SUMMARY | 2024-02-26 21:38 | XMS_ITS | Encounter Summary ---
Author Organization [facility] Address [address] [place] [address] Care Team Providers Care Audiovisual Technician Name Role Phone Damon Swanson DO Unavailable Zeke Puente MD Primary Care Provider [phone] Sarah Baldwin MD, Karl N. Unavailable Reason for Visit * Reason Comments Wound Check Encounter Details Date Type Department Care Team (Latest Contact Info) Description 11/06/2019 4:27 PM CDT - 11/20/2019 9:00 PM CDT Hospital Encounter [facility] [address] [place] [address] [place] [address] [facility] [address] [place] [address] [place] [phone] [facility] [address] [place], [place] [id number] [place] [phone] [facility] [address] [place], [place] [id number] [place] [id number] [facility] [address] [place] [address] [place] [address] [facility] [address] [place] [address] Acute hematogenous osteomyelitis of right foot (CMS/HCC) (Primary Dx); Gangrene (CMS/HCC); Sepsis (CMS/HCC); COVID-19 Discharge Disposition: [facility] Social History Tobacco Use Types Packs/Day Years Used Date Smoking Tobacco: Never Smokeless Tobacco: Never Alcohol Use Standard Drinks/Week Comments No 0 (1 standard drink = 0.6 oz pur e alcohol) PHQ-2 Answer Date Recorded PHQ-2 Score 0 11/03/2018 Comments No Sex and Gender Information Value Date Recorded Sex Assigned at Not on file 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[employer] Gender Identity Not on file Sexual Orientation Not on file documented as of this encounter Last Filed Vital Signs Vital Sign Reading Time Taken Comments Blood Pressure 145/67 11/20/2019 7:41 PM CDT Pulse 70 11/20/2019 7:41 PM CDT Temperature 36.8 ??C (98.2 ??F) 11/20/2019 7:41 PM CD T Respiratory Rate 20 11/20/2019 7:41 PM CDT Oxygen Saturation 96% 11/20/2019 7:41 PM CDT Inhaled Oxygen Concentration - - Weight 82.6 kg (182 lb 3.2 oz) 11/14/2019 6:25 A M CDT Height 157.5 cm (5' 2.01 ) 11/07/2019 12:39 PM C DT Body Mass Index 33.32 11/07/2019 12:39 PM CDT documented in this encounter Discharge Diagnoses Diagnosis Other gram-negative sepsis (HCC) - OTHER GRAM-NEGATIVE SEPSIS COVID-19 - COVID-19 Pressure ulcer of sacral region, stage 4 (HCC) - PRESSURE ULCER OF SACRAL REGION, STAGE 4 Moderate protein-calorie malnutrition (CMS/HCC) (HCC) - MODERATE PROTEIN-CALORIE MALNUTRITION Acute hematogenous osteomyelitis, right ankle and foot (HCC) - ACUTE HEMATOGENOUS OSTEOMYELITIS, RIGHT ANKLE AND FOOT Atherosclerosis 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, bilateral legs (HCC) - ATHEROSCLEROSIS OF [place] ARTERIES OF EXTREMITIES WITH GANGRENE, BILATERAL LEGS Type 2 diabetes mellitus with diabetic peripheral angiopathy with gangrene (HCC) - TYPE 2 DIABETES MELLITUS WITH DIABETIC PERIPHERAL ANGIOPATHY WITH GANGRENE Gangrene, not elsewhere classified (HCC) - GANGRENE, NOT ELSEWHERE CLASSIFIED Type 2 diabetes mellitus with other specified complication (HCC) - TYPE 2 DIABETES MELLITUS WITH OTHER SPECIFIED COMPLICATION Type 2 diabetes mellitus with diabetic neuropathy, unspecified (HCC) - TYPE 2 DIABETES MELLITUS WITH DIABETIC NEUROPATHY, UNSPECIFIED Pressure ulcer of left heel, stage 2 (HCC) - PRESSURE ULCER OF LEFT HEEL, STAGE 2 Pressure ulcer of right heel, stage 2 (HCC) - PRESSURE ULCER OF RIGHT HEEL, STAGE 2 Hypothyroidism, unspecified - HYPOTHYROIDISM, UNSPECIFIED Hyperlipidemia, unspecified - HYPERLIPIDEMIA, UNSPECIFIED Unspecified dementia without behavioral disturbance - UNSPECIFIED DEMENTIA WITHOUT BEHAVIORAL DISTURBANCE Anemia in other chronic diseases classified elsewhere - ANEMIA IN OTHER CHRONIC DISEASES CLASSIFIED ELSEWHERE (MANIFESTATION) Essential (primary) hypertension - ESSENTIAL (PRIMARY) HYPERTENSION Unspecified essential hypertension Incisional hernia without obstruction or gangrene - INCISIONAL HERNIA WITHOUT OBSTRUCTION OR GANGRENE Constipation, unspecified - CONSTIPATION, UNSPECIFIED Body mass index (bmi) 27.0-27.9, adult - BODY MASS INDEX (BMI) 27.0-27.9, ADULT Hormone replacement therapy - HORMONE REPLACEMENT THERAPY Allergy status to narcotic agent status - ALLERGY STATUS TO NARCOTIC AGENT STATUS alf (current) use of insulin (HCC) - PENITENTIARY (CURRENT) USE OF INSULIN Other jail (current) drug therapy - OTHER DATA ASSISTANT (CURRENT) DRUG THERAPY enzyme chemist (current) use of aspirin - PENITENTIARY (CURRENT) USE OF ASPIRIN documented in this encounter Discharge Summaries * Reji Whittaker MD - 11/20/2019 3:57 PM CDT Inpatient Discharge Summary BRIEF OVERVIEW Admitting Provider: Reji Whittaker MD Discharge Provider: Reji Whittaker MD Primary Care Physician at Discharge: Zeke Puente MD [phone] Admission Date: 11/06/2019 Discharge Date: 11/20/2019 Admission Location: [facility] Problems/Diagnoses: Principal Problem: Sepsis (CMS/HCC) Active Problems: Moderate malnutrition (CMS/HCC) Acute hematogenous osteomyelitis of right foot (CMS/HCC) PVD (peripheral vascular disease) (CMS/HCC) Anemia COVID-19 Hypothyroidism Hyperlipidemia Pressure injury of sacral region, stage 4 ([facility]) DETAILS OF HOSPITAL STAY Presenting Problem/History of Present Illness: *Non healing wounds bilateral feet and heels and stage 4 Gluteal decubitus Ulcers Hospital Course: * General Medicine Daily Progress ? SUBJECTIVE: Chief complaint of Chronic Non healing wounds bilateral feet and stage 4 gluteal decubitus ulcers. Interval History: *Chart reviewed and pt examined Patient is a??64 y.o.??female??with a medical history of dementia, diabetes type 2, hyperlipidemia,hypothyroidism, neuropathy,??PVD, hypertension and chronic wounds who presents from a correction for wound evaluation.?Patient who is A&O x1 is unable to give any accurate history,??all history obtained from chart review.?Patient has wound to her buttocks and bilateral heels that are kiarra grenous and complains of bilateral leg pain.?Also patient has had numerous admissions at [facility]??for bacteremia requiring IV antibiotics and wound care. Evaluation in the ER shows Na 134, BUN 39, creatinine 1.07, glucose 210, AST 67, ALT 63, initial lactate 2.3, then 1.7, WBC 19.3 with left shift, hemoglobin 7.9, hematocrit 24.1, blood cultures were drawn and pending,??urinalysis pending.?KUB was done and results not final;??x-rays of bilateral feet also have results pending.?Patient remains afebrile but??hypertensive.?Patient was given IV fluid bolus, Zosyn, and started on vancomycin Patient will be admitted for further evaluation and treatment 11/07/19 Consultants input appreciated Called Son Braulio Turner at [phone] He would want another Son whose number he would get give consent for Transfusion 11/07/19 17:45 Spoke with Son Mr Alisson House [phone] He consents to having his mother transfused with PRBC I Discussed the indications,type and cross match and also checking for infections which include hepatitis and HIV amongst others in the donor blood 11/08/19 Transfused 1 unit PRBC Hgb is 8.1 11/09/19 Discussed with son Mr Alisson House and gave him an update Blood culture positive for gram negative bacilli Proteus and Morganella WBC reduced from 19.3 on 11/06/19 to 13 on 11/08/19 11/10/19 WBC is 12.4 To have Urology consult because of suspicion of malignancy also MRI Thoracic and Lumbar vertebrae Discussed extensively with son Mr rojas about the need for an MRI 11/11/19 Discussed with son Informed him about the Coronavirus test which was positive She does not have any oxygen requirements Not a candidate for Remdesivir presently MRI on hold 11/12/19 Comfortable Eating dinner,being fed IV Vanco and Zosyn DC To be on Ceftriaxone and Flagyl for 6 weeks 11/14/19 Needs Picc line for IV Ceftriaxone 2 grams daily through 12/18/19 and Flagyl 500mg TID To discuss with disease case manager if she would be accepted back in SNF 11/15/19 Needs PICC line and DME 11/15. Stable per nurse report,?? 11/16 BS low this am 11/18/19 Discussed with son Mr Alisson House To have Picc line placed Also to meet with social workers/disease case manager if she would be going back to the SNF in [place] or somewhere else 11/19/19 DC planning in progress ?[facility] 11/20/19 WBC is 7.4 To be DC to LTAC today Review of Systems Constitutional: Positive for activity change. Unobtainable due to dementia ?? OBJECTIVE: Vitals: 24hr Min/Max: Temp Min: 36.2 ??C (97.1 ??F) Max: 37 ??C (98.6 ??F) Pulse Min: 70 Max: 79 BP Min: 112/43 Max: 136/55 Resp Min: 12 Max: 20 SpO2 Min: 95 % Max: 98 % ?? Most Recent : Vitals Vitals: ?? 11/19/19 2325 11/20/19 0359 11/20/19 0802 11/20/19 1200 BP: 136/67 127/55 (!) 112/43 136/55 BP Location: Right arm Right arm Right arm Right arm Patient Position: Lying Lying Lying Lying Pulse: 71 71 71 73 Resp: 20 12 16 15 Temp: 36.4 ??C (97.5 ??F) 36.2 ??C (97.1 ??F) 36.9 ??C (98.4 ??F) 36.4 ??C (97.6 ??F) TempSrc: Temporal Temporal Oral Oral SpO2: 98% 97% 95% 98% Weight: ? Height: ? I/O last 2 completed shifts: In: 950 [P.O.:950] Out: 2300 [Urine:2300] I/O this shift: In: 358 [P.O.:358] Out: 1050 [Urine:1050] ?? Physical Exam: Physical Exam Vitals signs and nursing note reviewed. Constitutional: Comments: Pleasant but confused HENT: Head: Normocephalic and atraumatic. Nose: Nose normal. Mouth/Throat: Mouth: Mucous membranes are moist. Eyes: Extraocular Movements: Extraocular movements intact. Conjunctiva/sclera: Conjunctivae normal. Pupils: Pupils are equal, round, and reactive to light. Neck: Musculoskeletal: Normal range of motion and neck supple. Cardiovascular: Rate and Rhythm: Normal rate and regular rhythm. Pulses: Normal pulses. Heart sounds: No murmur. Pulmonary: Effort: Pulmonary effort is normal. Breath sounds: Normal breath sounds. No wheezing. Abdominal: General: Bowel sounds are normal. There is distension. Palpations: Abdomen is soft. Hernia: A hernia is present. Comments: Ventral hernia at the region of the healed midline incision Skin: Comments: Bilateral stage 2 heel ulcers Stage 4 sacral decubitus ulcers Neurological: Mental Status: She is alert. Comments: Confused Psychiatric: Comments: Pleasant but confused ? Lab/Radiology/Diagnostic Review: Recent Results Recent Results (from the past 24 hour(s)) POCT glucose ?? Collection Time: 11/19/19 4:40 PM Result Value Ref Range ?? Glucose, POC 278 (H) 70 - 199 mg/dL POCT glucose ?? Collection Time: 11/19/19 11:52 PM Result Value Ref Range ?? Glucose, POC 186 70 - 199 mg/dL POCT glucose ?? Collection Time: 11/20/19 2:45 AM Result Value Ref Range ?? Glucose, POC 146 70 - 199 mg/dL Comprehensive metabolic panel ?? Collection Time: 11/20/19 3:58 AM Result Value Ref Range ?? Sodium 137 135 - 145 mmol/L ?? Potassium, pl 3.5 3.3 - 4.9 mmol/L ?? Chloride 95 (L) 97 - 110 mmol/L ?? CO2 30 22 - 32 mmol/L ?? Anion gap 12 2 - 15 mmol/L ?? BUN 36 (H) 8 - 25 mg/dL ?? Creatinine 0.65 0.60 - 1.10 mg/dL ?? Glucose 142 70 - 199 mg/dL ?? Calcium 8.7 8.5 - 10.3 mg/dL ?? Bilirubin, total 0.2 0.1 - 1.2 mg/dL ?? Protein, pl 7.1 6.5 - 8.5 g/dL ?? Albumin 2.7 (L) 3.5 - 5.0 g/dL ?? Alk phos 28 (L) 40 - 130 Units/L ?? ALT 16 7 - 45 Units/L ?? AST 19 10 - 45 Units/L eGFR ?? Collection Time: 11/20/19 3:58 AM Result Value Ref Range ?? GFR 94 mL/min/1.73 m2 POCT glucose ?? Collection Time: 11/20/19 6:55 AM Result Value Ref Range ?? Glucose, POC 170 70 - 199 mg/dL POCT glucose ?? Collection Time: 11/20/19 12:22 PM Result Value Ref Range ?? Glucose, POC 385 (H) 70 - 199 mg/dL POCT glucose ?? Collection Time: 11/20/19 12:24 PM Result Value Ref Range ?? Glucose, POC 362 (H) 70 - 199 mg/dL ?? Xr Foot Left 3 Or More Views ?? Result Date: 11/07/2019 Narrative: EXAMINATION: XR FOOT LEFT 3 OR MORE VIEWS HISTORY: The patient is a 64-year-old female who presents with pain in the left foot. TECHNIQUE: 3 views of the left foot with portable technique.FINDINGS: No fracture or dislocation is seen. Bony structures are normally mineralized. There is marked arterial calcification. ?? Impression: No fracture or dislocation seen. Electronically signed by: Antonino Jane M.D. ?? Xr Foot Right 3 Or More Views ?? Result Date: 11/07/2019 Narrative: EXAMINATION: XR FOOT RIGHT 3 OR MORE VIEWS DATE: 11/06/2019 7:50 PM HISTORY: Pain. COMPARISON: None. FINDINGS: There is a large enthesophyte arising from the posterior superior aspect of the calcaneus. Linear lucency traversing the enthesophyte may represent an avulsion injury in the acute clinical setting. Soft tissue swelling is seen near the Achilles insertion on the large enthesophyte. The calcaneus demonstrates a heterogeneous appearance, which is suggestive of osteomyelitis given associated soft tissue swelling and apparent edema/cellulitis in the subcutaneous soft tissues. Atherosclerotic peripheral vascular disease is demonstrated. Significant degenerative changes in the fo refoot. ?? Impression: 1. 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 2. Possible enthesophyte avulsion fracture/injury as detailed above. 3. Degenerative changes most significant in the forefoot. 4. Atherosclerotic peripheral vascular disease. Electronically signed by: Harlan Tomas II, D.O. ?? Xr Abdomen Ap 1 Vw ?? Result Date: 11/07/2019 Narrative: EXAMINATION: XR ABDOMEN AP 1 VIEW HISTORY: The patient is a 64-year-old female who presents with abdominal distention. TECHNIQUE: AP portable supine view of the abdomen. FINDINGS: Normal intestinal gas pattern. No dilated small or large bowel loops. Wesley and clips are seen overlying the lower abdomen and pelvis from prior surgery. ?? Impression: Normal gas pattern. Electronically signed by: Antonino Jane M.D. ?? ASSESSMENT/PLAN: Principal Problem: Sepsis (CMS/HCC) Active Problems: Moderate malnutrition (CMS/HCC) Acute hematogenous osteomyelitis of right foot (CMS/HCC) PVD (peripheral vascular disease) (CMS/HCC) Anemia COVID-19 Hypothyroidism Hyperlipidemia Pressure injury of sacral region, stage 4 (CMS/HCC) Sepsis Proteus and Morganella Gangrenous wounds -??patient has gangrenous wounds to bilateral heels and sacral area -??has had numerous debridements at??[facility] -??last MRI 07/02/2019 did not show osteomyelitis;??may need repeat - -??wound care consult -??general surgery consult ?? Sepsis -may be secondary to wound infection -??initial lactate 2.3,??then 1.7 ?Anemia of chronic disease transfused PRBC on 11/07/19 Leukocytosis with left shift -??patient has had multiple admissions for bacteremia - ID input appreciated ?? Abdominal distension -??patient has history with constipation -??abdominal x-ray results are negative -start on MiraLax and Colace ?? Hypertension -??continue amlodipine ??COVID 19 positive On covid floor Diabetes Mellitus Type 2 -continue Lantus plus sliding scale insulin -Hgb A1c is 8.6 ?? PVD -ordered ABIs ?? Hypothyroidism -continue levothyroxine ?? Hyperlipidemia -??continue atorvastatin ?? DVT??prophylaxis on Lovenox and GI prophylaxis??currently not indicated 1. ?? 35 minutes spent on coordinating the discharge Reji Whittaker MD Active Issues Requiring Follow-up: Test Results Pending at Discharge: Operative Procedures Performed: Other Procedures: Pertinent Test Results: Discharge Details Physical Exam at Discharge: Discharge Condition: fair Pulse: 73 Resp: 15 BP: 136/55 Temp: 36.4 ??C (97.6 ??F) Weight: 82.6 kg (182 lb 3.2 oz) Pertinent Exam Findings at Discharge: Discharge Disposition: [facility] Code Status at Discharge: Full Code Discharge Instructions: Diet Instructions Continue a mechanical soft diet and avoid restrictions to encourage intakes, but avoid sugary drinks like lemonade, regular soda, gatorade, and sweet tea. Recommend Ensure High Protein with all mealsand 2 packets of Emmanuel each day for optimal wound healing.Call [facility] Dietitian's office at [phone] for questions about your diet. Discharge Medications: Current Medications TAKE these medications amLODIPine 10 mg tablet Commonly known as: NORVASC aspirin 325 mg tablet Take 1 tablet (325 mg total) by mouth daily Start taking on: November 21, 2019 atorvastatin 40 mg tablet Take 1 tablet (40 mg total) by mouth nightly Commonly known as: LIPITOR cefTRIAXone Infuse 20 mL (2,000 mg total) into a venous catheter daily for 27 days For: Blood Stream/Endovascular Infection Commonly known as: ROCEPHIN Start taking on: November 21, 2019 chlorthalidone 25 mg tablet Take 1 tablet (25 mg total) by mouth daily Start taking on: November 21, 2019 gabapentin 300 mg capsule Take 1 capsule (300 mg total) by mouth 3 (three) times a day Commonly known as: NEURONTIN * insulin lispro 100 unit/mL injection Inject 1-5 Units under the skin 3 (three) times a day with meals For: diabetes Commonly known as: HumaLOG, ADMELOG * insulin lispro 100 unit/mL injection Inject 5 Units under the skin 3 (three) times a day with meals Commonly known as: HumaLOG, ADMELOG Lantus U-100 Insulin 100 unit/mL injection Inject 20 Units under the skin daily Generic drug: insulin glargine levothyroxine 50 mcg tablet Take 1 tablet (50 mcg total) by mouth cop before breakfast Commonly known as: SYNTHROID Start taking on: November 21, 2019 metroNIDAZOLE 500 mg tablet Take 1 tablet (500 mg total) by mouth 3 (three) times a day for 28 days For: Pneumonia, Aspiration Commonly known as: FLAGYL pantoprazole DR 40 mg EC tablet Take 1 tablet (40 mg total) by mouth daily For: Stress Ulcer Prophylaxis Commonly known as: PROTONIX Start taking on: November 21, 2019 * This list has 2 medication(s) that are the same as other medications prescribed for you. Read the directions carefully, and ask your doctor or other care provider to review them with you. Outpatient Follow-Up: Contact Information for Follow-ups [address] [facility] [id number] Next Steps: Follow up documented in this encounter Discharge Instructions * Discharge Instr - Diet* Meche Loco RD - 11/07/2019 12:51 PM CDT Continue a mechanical soft diet and avoid restrictions to encourage intakes, but avoid sugary drinks like lemonade, regular soda, gatorade, and sweet tea. Recommend Ensure High Protein with all mealsand 2 packets of Emmanuel each day for optimal wound healing.Call [facility] Dietitian's office at [phone] for questions about your diet. documented in this encounter Medications at Time [...] 1 tablet (50 mcg total) by mouth cop before breakfast 30 tablet 1 11/21/[address] (PROTONIX) 40 mg EC tabletIndications :Stress Ulcer Prophylaxis Take 1 tablet (40 mg total) by mouth daily 30 tablet 1 11/21/2019 1 documented as of this encounter Ordered Prescriptions Prescription Sig Dispense Quantity Refills Last Filled Start Date End Date metroNIDAZOLE (FLAGYL) 500 mg tabletIndications: Pneumonia, Aspiration Take 1 tablet (500 mg total) by mouth 3 (three) times a day for 28 days 84 tablet 11/20/[address] (PROTONIX) 40 mg EC tabletIndications: Stress Ulcer Prophylaxis Take 1 tablet (40 mg total) by mouth daily 30 tablet 1 11/21/2019 1 levothyroxine (SYNTHROID) 50 mcg tablet Take 1 tablet (50 mcg total) by mouth cop before breakfast 30 tablet 1 11/21/2019 1 insulin lispro (HumaLOG, ADMELOG) 100 unit/mL injection Inject 5 Units under the skin 3 (three) times a day with meals 10 mL 1 11/20/2019 1 insulin lispro (HumaLOG, ADMELOG) 100 unit/mL injectionIndicatio ns:Diabetes Mellitus Inject 1-5 Units under the skin 3 (three) times a day with meals 10 mL 1 11/20/2019 1 gabapentin (NEURONTIN) 300 mg capsule Take 1 capsule (300 mg total) by mouth 3 (three) times a day 90 capsule 1 11/20/2019 1 chlorthalidone 25 mg tablet Take 1 tablet (25 mg total) by mouth daily 30 tablet 1 11/21/2019 1 cefTRIAXone (ROCEPHIN)Indicati ons:Blood Stream/Endovascula r Infection Infuse 20 mL (2,000 mg total) into a venous catheter daily for 27 days 540 mL 11/21/2019 0 aspirin 325 mg tablet Take 1 tablet (325 mg total) by mouth daily 30 tablet 1 11/21/2019 1 insulin glargine (Lantus U-100 Insulin) 100 unit/mL injection Inject 20 Units under the skin daily 10 mL 1 11/20/2019 1 atorvastatin (LIPITOR) 40 mg tablet Take 1 tablet (40 mg total) by mouth nightly 30 tablet 1 11/20/2019 1 documented in this encounter Discharge Disposition Disposition Code Departure Means Destination [facility] documented in this encounter Progress Notes * Ogunremi, Reji Omolulu, MD - 11/20/2019 3:44 PM CDT General Medicine Daily Progress SUBJECTIVE: Chief complaint of Chronic Non healing wounds bilateral feet and stage 4 gluteal decubitus ulcers. Interval History: *Chart reviewed and pt examined Patient is a 64 y.o. female with a medical history of dementia, diabetes type 2, hyperlipidemia, hypothyroidism, neuropathy, PVD, hypertension and chronic wounds who presents from a correction for wound evaluation. Patient who is A&O x1 is unable to give any accurate history, all history obtained from chart review. Patient has wound to her buttocks and bilateral heels that are gangrenous and complains of bilateral leg pain. Also patient has had numerous admissions at [facility] for bacteremia requiring IV antibiotics and wound care. Evaluation in the ER shows Na 134, BUN 39, creatinine 1.07, glucose 210, AST 67, ALT 63, initial lactate 2.3, then 1.7, WBC 19.3 with left shift, hemoglobin 7.9, hematocrit 24.1, blood cultures were drawn and pending, urinalysis pending. KUB was done and results not final; x-rays of bilateral feet also have results pending. Patient remains afebrile but hypertensive. Patient was given IV fluid bolus, Zosyn, and started on vancomycin Patient will be admitted for further evaluation and treatment 11/07/19 Consultants input appreciated Called Son Braulio Turner at [phone] He would want another Son whose number he would get give consent for Transfusion 11/07/19 17:45 Spoke with Son Mr Alisson House [phone] He consents to having his mother transfused with PRBC I Discussed the indications,type and cross match and also checking for infections which include hepatitis and HIV amongst others in the donor blood 11/08/19 Transfused 1 unit PRBC Hgb is 8.1 11/09/19 Discussed with son Mr Alisson House and gave him an update Blood culture positive for gram negative bacilli Proteus and Morganella WBC reduced from 19.3 on 11/06/19 to 13 on 11/08/19 11/10/19 WBC is 12.4 To have Urology consult because of suspicion of malignancy also MRI Thoracic and Lumbar vertebrae Discussed extensively with son Mr rojas about the need for an MRI 11/11/19 Discussed with son Informed him about the Coronavirus test which was positive She does not have any oxygen requirements Not a candidate for Remdesivir presently MRI on hold 11/12/19 Comfortable Eating dinner,being fed IV Vanco and Zosyn DC To be on Ceftriaxone and Flagyl for 6 weeks 11/14/19 Needs Picc line for IV Ceftriaxone 2 grams daily through 12/18/19 and Flagyl 500mg TID To discuss with disease case manager if she would be accepted back in SNF 11/15/19 Needs PICC line and DME 11/15. Stable per nurse report, 11/16 BS low this am 11/18/19 Discussed with son Mr Alisson House To have Picc line placed Also to meet with social workers/disease case manager if she would be going back to the SNF in [place] or somewhere else 11/19/19 DC planning in progress ?[facility] for [facility] 11/20/19 WBC is 7.4 To be DC to LTAC today Review of Systems Constitutional: Positive for activity change. Unobtainable due to dementia OBJECTIVE: Vitals: 24hr Min/Max: Temp Min: 36.2 ??C (97.1 ??F) Max: 37 ??C (98.6 ??F) Pulse Min: 70 Max: 79 BP Min: 112/43 Max: 136/55 Resp Min: 12 Max: 20 SpO2 Min: 95 % Max: 98 % Most Recent : Vitals: 11/19/19 2325 11/20/19 0359 11/20/19 0802 11/20/19 1200 BP: 136/67 127/55 (!) 112/43 136/55 BP Location: Right arm Right arm Right arm Right arm Patient Position: Lying Lying Lying Lying Pulse: 71 71 71 73 Resp: 20 12 16 15 Temp: 36.4 ??C (97.5 ??F) 36.2 ??C (97.1 ??F) 36.9 ??C (98.4 ??F) 36.4 ??C (97.6 ??F) TempSrc: Temporal Temporal Oral Oral SpO2: 98% 97% 95% 98% Weight: Height: I/O last 2 completed shifts: In: 950 [P.O.:950] Out: 2300 [Urine:2300] I/O this shift: In: 358 [P.O.:358] Out: 1050 [Urine:1050] Physical Exam: Physical Exam Vitals signs and nursing note reviewed. Constitutional: Comments: Pleasant but confused HENT: Head: Normocephalic and atraumatic. Nose: Nose normal. Mouth/Throat: Mouth: Mucous membranes are moist. Eyes: Extraocular Movements: Extraocular movements intact. Conjunctiva/sclera: Conjunctivae normal. Pupils: Pupils are equal, round, and reactive to light. Neck: Musculoskeletal: Normal range of motion and neck supple. Cardiovascular: Rate and Rhythm: Normal rate and regular rhythm. Pulses: Normal pulses. Heart sounds: No murmur. Pulmonary: Effort: Pulmonary effort is normal. Breath sounds: Normal breath sounds. No wheezing. Abdominal: General: Bowel sounds are normal. There is distension. Palpations: Abdomen is soft. Hernia: A hernia is present. Comments: Ventral hernia at the region of the healed midline incision Skin: Comments: Bilateral stage 2 heel ulcers Stage 4 sacral decubitus ulcers Neurological: Mental Status: She is alert. Comments: Confused Psychiatric: Comments: Pleasant but confused Lab/Radiology/Diagnostic Review: Recent Results (from the past 24 hour(s)) POCT glucose Collection Time: 11/19/19 4:40 PM Result Value Ref Range Glucose, POC 278 (H) 70 - 199 mg/dL POCT glucose Collection Time: 11/19/19 11:52 PM Result Value Ref Range Glucose, POC 186 70 - 199 mg/dL POCT glucose Collection Time: 11/20/19 2:45 AM Result Value Ref Range Glucose, POC 146 70 - 199 mg/dL Comprehensive metabolic panel Collection Time: 11/20/19 3:58 AM Result Value Ref Range Sodium 137 135 - 145 mmol/L Potassium, pl 3.5 3.3 - 4.9 mmol/L Chloride 95 (L) 97 - 110 mmol/L CO2 30 22 - 32 mmol/L Anion gap 12 2 - 15 mmol/L BUN 36 (H) 8 - 25 mg/dL Creatinine 0.65 0.60 - 1.10 mg/dL Glucose 142 70 - 199 mg/dL Calcium 8.7 8.5 - 10.3 mg/dL Bilirubin, total 0.2 0.1 - 1.2 mg/dL Protein, pl 7.1 6.5 - 8.5 g/dL Albumin 2.7 (L) 3.5 - 5.0 g/dL Alk phos 28 (L) 40 - 130 Units/L ALT 16 7 - 45 Units/L AST 19 10 - 45 Units/L eGFR Collection Time: 11/20/19 3:58 AM Result Value Ref Range GFR 94 mL/min/1.73 m2 POCT glucose Collection Time: 11/20/19 6:55 AM Result Value Ref Range Glucose, POC 170 70 - 199 mg/dL POCT glucose Collection Time: 11/20/19 12:22 PM Result Value Ref Range Glucose, POC 385 (H) 70 - 199 mg/dL POCT glucose Collection Time: 11/20/19 12:24 PM Result Value Ref Range Glucose, POC 362 (H) 70 - 199 mg/dL Xr Foot Left 3 Or More Views Result Date: 11/07/2019 Narrative: EXAMINATION: XR FOOT LEFT 3 OR MORE VIEWS HISTORY: The patient is a 64-year-old female who presents with pain in the left foot. TECHNIQUE: 3 views of the left foot with portable technique.FINDINGS: No fracture or dislocation is seen. Bony structures are normally mineralized. There is marked arterial calcification. Impression: No fracture or dislocation seen. Electronically signed by: Antonino Jane M.D. Xr Foot Right 3 Or More Views Result Date: 11/07/2019 Narrative: EXAMINATION: XR FOOT RIGHT 3 OR MORE VIEWS DATE: 11/06/2019 7:50 PM HISTORY: Pain. COMPARISON: None. FINDINGS: There is a large enthesophyte arising from the posterior superior aspect of the calcaneus. Linear lucency traversing the enthesophyte may represent an avulsion injury in the acute clinical setting. Soft tissue swelling is seen near the Achilles insertion on the large enthesophyte. The calcaneus demonstrates a heterogeneous appearance, which is suggestive of osteomyelitis given associated soft tissue swelling and apparent edema/cellulitis in the subcutaneous soft tissues. Atherosclerotic peripheral vascular disease is demonstrated. Significant degenerative changes in the fo refoot. Impression: 1. 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 2. Possible enthesophyte avulsion fracture/injury as detailed above. 3. Degenerative changes most significant in the forefoot. 4. Atherosclerotic peripheral vascular disease. Electronically signed by: Harlan Tomas II, D.O. Xr Abdomen Ap 1 Vw Result Date: 11/07/2019 Narrative: EXAMINATION: XR ABDOMEN AP 1 VIEW HISTORY: The patient is a 64-year-old female who presents with abdominal distention. TECHNIQUE: AP portable supine view of the abdomen. FINDINGS: Normal intestinal gas pattern. No dilated small or large bowel loops. Samara and clips are seen overlying the lower abdomen and pelvis from prior surgery. Impression: Normal gas pattern. Electronically signed by: Antonino Jane M.D. ASSESSMENT/PLAN: Principal Problem: Sepsis (CMS/HCC) Active Problems: Moderate malnutrition (CMS/HCC) Acute hematogenous osteomyelitis of right foot (CMS/HCC) PVD (peripheral vascular disease) (CMS/HCC) Anemia COVID-19 Hypothyroidism Hyperlipidemia Pressure injury of sacral region, stage 4 (CMS/HCC) Sepsis Proteus and Morganella Gangrenous wounds - patient has gangrenous wounds to bilateral heels and sacral area - has had numerous debridements at [facility] - last MRI 07/02/2019 did not show osteomyelitis; may need repeat - - wound care consult - general surgery consult ?? Sepsis -may be secondary to wound infection - initial lactate 2.3, then 1.7 ??Anemia of chronic disease transfused PRBC on 11/07/19 Leukocytosis with left shift - patient has had multiple admissions for bacteremia - ID input appreciated ?? Abdominal distension - patient has history with constipation - abdominal x-ray results are negative -start on MiraLax and Colace ?? Hypertension - continue amlodipine ??COVID 19 positive On covid floor Diabetes Mellitus Type 2 -continue Lantus plus sliding scale insulin -Hgb A1c is 8.6 ?? PVD -ordered ABIs ?? Hypothyroidism -continue levothyroxine ?? Hyperlipidemia - continue atorvastatin ?? DVT prophylaxis on Lovenox and GI prophylaxis currently not indicated 1. 35 minutes spent on coordinating the discharge Reji Whittaker MD * Vandana Rider MSW - 11/20/2019 11:32 AM CDT Per Christina Nagel, pt has been accepted. Pt can go to room 535, can transfer after Dr to is given and d/c orders are faxed. Per Christina with [facility], she left message for pt's dtr Ailyn and was able to s/w pt's son Alisson. He was in agreement with transfer. S/w Dr to make aware of above and perfect served Dr to phone #. Sw to call family back once transportation is arranged. 11/20/19 1128 Discharge Summary Chart reviewed For Medical Necessity Does patient have a planned readmission to hospital planned? No Discharge Disposition [facility] ([facility]) Specify Facility [facility] (room 535) Facility Contact Number # [phone] fax# [phone] Saleh Facility Attending Contact Number # [phone] Discharge Additional Assistance Does the patient need discharge transport arranged? Yes Has discharge transport been arranged? No Details of Transportation [facility] amb What day is the transport expected? 11/20/19 Discharge Transportation Communication Mode of transport has been discussed with the patient/family. All are agreeable to the plan and understand their responsibilities to ensure the safe transfer. No further CM/SW intervention is anticipated at this time. (Christina with [facility] has left message for dtr Ailyn and has s/w pt's son Alisson, he was agreeable to transfer.) BELA López, [facility]- [phone] * Oleksandr Ozuna NP - 11/20/2019 7:52 AM CDT Images from the original note were not included. Infectious Disease Progress Note Iris Gil Admit Date: 11/06/2019 4:27 PM 11/20/2019 Hospital Day: 15 Subjective: Afebrile. Had PICC placed yesterday. Awaiting placement. ON room air. Denies pain. Feels well. ROS: Denies N/V/D/SOB/cough/rashes Allergies: Allergies Allergen Reactions ? ? Codeine Phosphate Nausea & Vomiting MEDICATIONS FOR CURRENT ENCOUNTER: Current Facility-Administered Medications Medication Dose Route Frequency Provider Last Rate Last Dose ??? acetaminophen (TYLENOL) tablet 650 mg 650 mg oral Q6H PRN Reji Whittaker MD 650 mg at 11/18/19 2337 ??? amLODIPine (NORVASC) tablet 10 mg 10 mg oral Daily Zack Johnson NP 10 mg at 11/19/19824 ??? aspirin tablet 325 mg 325 mg oral Daily Zack Johnson NP 325 mg at 11/19/19824 ??? atorvastatin (LIPITOR) tablet 40 mg 40 mg oral Nightly Zack Johnson NP 40 mg at 11/19/192042 ??? cefTRIAXone (ROCEPHIN) 2,000 mg/20 mL in sterile water (premix) 2,000 mg 2,000 mg intravenous Q24H [facility] Markel Bourgeois MD 2,000 mg at 11/19/19823 ??? chlorthalidone tablet 25 mg 25 mg oral Daily Zack Johnson NP 25 mg at 11/19/19824 ??? cloNIDine (CATAPRES) tablet 0.1 mg 0.1 mg oral Q6H PRN Reji Whittaker MD 0.1 mg at 11/10/191655 ??? dextrose oral liquid liquid 15 g 15 g oral Q15 Min PRN Reji Whittaker MD Or ??? dextrose (D10W) 10% bolus 250 mL 250 mL intravenous Q15 Min PRN Reji Whittaker MD ??? docusate sodium (COLACE) capsule 100 mg 100 mg oral BID PRN Sina Schilling MD 100 mg at 11/15/192025 ??? enoxaparin (LOVENOX) syringe 40 mg 40 mg subcutaneous Daily-2100 Reji Whittaker MD 40 mg at 11/19/192042 ??? gabapentin (NEURONTIN) capsule 300 mg 300 mg oral TID Zack Johnson NP 300 mg at 11/19/192043 ??? glucagon injection 1 mg 1 mg intramuscular Q30 Min PRN Reji Whittaker MD ??? insulin glargine (LANTUS) injection 12 Units 12 Units subcutaneous QAM Nita Potter MD 12 Units at 11/19/19824 ??? insulin lispro (HumaLOG, ADMELOG) injection 1-5 Units 1-5 Units subcutaneous TID with meals Reji Whittaker MD 1 Units at 11/20/19655 ??? levothyroxine (SYNTHROID) tablet 50 mcg 50 mcg oral Daily - 599 Zack Johnson, PULLING UNIT OPERATOR 50 mcg at11/20/19655 ??? lidocaine PF (XYLOCAINE) 10 mg/mL (1 %) preservative free injection 10-20 mg 1-2 mL subcutaneous Once Nita Potter MD ??? metroNIDAZOLE (FLAGYL) tablet 500 mg 500 mg oral TID Markel Bourgeois MD 500 mg at 11/19/192042 ??? ondansetron ODT (ZOFRAN-ODT) disintegrating tablet 4 mg 4 mg oral Q6H PRN Sina Schilling MD Or ??? ondansetron (ZOFRAN) injection 4 mg 4 mg intravenous Q6H PRN Sina Schilling MD ??? pantoprazole DR (PROTONIX) extended release tablet 40 mg 40 mg oral Daily Zack Johnson, P[employer]ING UNIT OPERATOR 40 mg at 11/19/19824 ??? polyethylene glycol (MIRALAX) packet 17 g 17 g oral Daily Zack Johnson, P[employer]ING UNIT OPERATOR 17 g at ??? sodium chloride 0.9% flush 0.5-20 mL 0.5-20 mL intra-catheter Q8H [facility] Sina Schilling MD 10mL at 11/20/19657 ??? sodium chloride 0.9% flush 0.5-20 mL 0.5-20 mL intra-catheter PRN Sina Schilling MD ??? sodium chloride 0.9% flush 5-10 mL 5-10 mL intra-catheter Q8H [facility] CARLOS Alvarado10 mL at 11/20/19657 ??? sodium chloride 0.9% flush 5-10 mL 5-10 mL intra-catheter PRN CARLOS Alvarado ??? sodium chloride 0.9% flush 5-10 mL 5-10 mL intra-catheter Q12H [facility] Nita Potter MD 10 mL at 11/19/192045 ??? sodium chloride 0.9% flush 5-20 mL 5-20 mL intra-catheter PRN Nita Potter MD Objective: Vitals: 11/19/19 1627 11/19/19 1942 11/19/19 2325 11/20/19 0359 BP: 136/72 131/69 136/67 127/55 BP Location: Right arm Right arm Right arm Right arm Patient Position: Lying Lying Lying Lying Pulse: 70 79 71 71 Resp: 18 20 12 Temp: 37 ??C (98.6 ??F) 36.6 ??C (97.8 ??F) 36.4 ??C (97.5 ??F) 36.2 ??C (97.1 ??F) TempSrc: Oral Temporal Temporal Temporal SpO2: 98% 97% 98% 97% Weight: Height: Temp (24hrs), Av.6 ??C (97.8 ??F), Min:36.2 ??C (97.1 ??F), Max:37 ??C (98.6 ??F) Height: 157.5 cm (5' 2.01 ) Weight: 82.6 kg (182 lb 3.2 oz) Intake/Output Summary (Last 24 hours) at 11/20/2019 0752 Last data filed at 11/20/2019 0600 Gross per 24 hour Intake 950 ml Output 2300 ml Net -1350 ml Exam: General appearance: alert, cooperative, no distress HEENT: (-)icterus, Oropharnyx is dry Neck: No palpable LN Lungs: breath sounds normal and symmetric; minimal respiratory effort, no r/w/c Heart: regular rhythm, normal S1 and S2, no m/r/g Abdomen: soft without mass, non-tender, +bowel sounds, no HSM Skin: (-)new rashes, necrotic ulcerations bilaterally on heels. MSK: no gross deformities, FROM Vascular: no Edema, Neuro: No 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 Psych: Flat affect Lab: Reviewed. Recent Labs Lab Units 11/20/19 0655 11/20/19 0358 11/20/19 0245 11/19/19 0520 11/18/19 0510 SODIUM mmol/L -- 137 -- -- 137 -- 140 POTASSIUM PLASMA mmol/L -- 3.5 -- -- 3.5 -- 3.7 CHLORIDE mmol/L -- 95* -- -- 95* -- 97 CO2 mmol/L -- 30 -- -- 30 -- 31 ANIONGAP mmol/L -- 12 -- -- 12 -- 12 GLUCOSE mg/dL -- 142 -- -- 165 -- 137 POC GLUCOSE MONITOR mg/dL 170 -- 146 < > -- < > -- BUN SERUM mg/dL -- 36* -- -- 33* -- 31* CREATININE mg/dL -- 0.65 -- -- 0.59* -- 0.61 CALCIUM mg/dL -- 8.7 -- -- 8.8 -- 8.8 ALBUMIN g/dL -- 2.7* -- -- 2.7* -- 2.7* ALK PHOS Units/L -- 28* -- -- 25* -- 26* ALT Units/L -- 16 -- -- 18 -- 18 AST Units/L -- 19 -- -- 19 -- 24 BILIRUBIN TOTAL mg/dL -- 0.2 -- -- 0.2 -- 0.2 < > = values in this interval not displayed. Lab Results Component Value Date WBC 7.4 11/19/2019 HGB 8.1 (L) 11/19/2019 HCT 25.7 (L) 11/19/2019 MCV 92.4 11/19/2019 LABPLAT 494 (H) 11/19/2019 Cultures: 11/05 Blood cx: Proteus mirabilis 2/2, Morganella morganii 1/2 (S: CTX, cefepime, zosyn) 11/07 blood cx: neg 11/06 Urine cx: contaminated 11/08 left heel cx: Proteus mirabilis, morganella morganii, mixed microorganisms 11/08 right heel cx: Proteus mirabilis and mixed microorganisms 11/08 covid-19: positive Imagin/27 x-ray of the right foot: Positive calcaneal osteo 11/07 CT A/P w: Cardiomegaly and small pericardial effusion Very large well-circumscribed fluid collection associated with surgical samara in the ventral abdominal wall suggesting a large seroma Marked bladder wall thickening suspicious for either chronic inflammation and/or possible neoplasm Numerous possible lytic foci in the thoracic and lumbar vertebra as noted above recommend MR imaging with and without contrast if Possible 11/07 Arterial dopplers bl LE: There is severe arterial insufficiency in both lower extremities, primarily in an infrapopliteal location. Assessment: 1. Right heel ulcer the with osteo 2. Diabetes mellitus 3. Dementia 4. Leukocytosis 5. Gram-negative bacteremia 6. Left heel ulcer 7. Fluid collection with surgical samara in ventral abdominal wall ?seroma 8. Severe PVD 9. COVID-19 Plan: 1.Continue ceftriaxone 2 gm IV daily and Flagyl 500 mg PO TID for 6 weeks until 12/18/2019 if no further intervention 2. MRI spine On hold 3. Continue supportive care 4. Continue wound care as per surgery 5. Weekly labs, CBC with diff, CMP, faxed to [phone] 6. Follow up with Dr. Bourgeois in 2-3 weeks [phone] Oleksandr Ozuna NP [facility] Call [phone] 11/20/2019 7:52 AM Cosigned by Avtar Mcknight MD at 11/21/2019 8:57 AM CDT * Reji Whittaker MD - 11/19/2019 5:41 PM CDT General Medicine Daily Progress SUBJECTIVE: Chief complaint of Chronic Non healing wounds bilateral feet and stage 4 gluteal decubitus ulcers. Interval History: *Chart reviewed and pt examined Patient is a 64 y.o. female with a medical history of dementia, diabetes type 2, hyperlipidemia, hypothyroidism, neuropathy, PVD, hypertension and chronic wounds who presents from a correction for wound evaluation. Patient who is A&O x1 is unable to give any accurate history, all history obtained from chart review. Patient has wound to her buttocks and bilateral heels that are gangrenous and complains of bilateral leg pain. Also patient has had numerous admissions at [facility] for bacteremia requiring IV antibiotics and wound care. Evaluation in the ER shows Na 134, BUN 39, creatinine 1.07, glucose 210, AST 67, ALT 63, initial lactate 2.3, then 1.7, WBC 19.3 with left shift, hemoglobin 7.9, hematocrit 24.1, blood cultures were drawn and pending, urinalysis pending. KUB was done and results not final; x-rays of bilateral feet also have results pending. Patient remains afebrile but hypertensive. Patient was given IV fluid bolus, Zosyn, and started on vancomycin Patient will be admitted for further evaluation and treatment 11/07/19 Consultants input appreciated Called Son Braulio Turner at [phone] He would want another Son whose number he would get give consent for Transfusion 11/07/19 17:45 Spoke with Son Mr Alisson House [phone] He consents to having his mother transfused with PRBC I Discussed the indications,type and cross match and also checking for infections which include hepatitis and HIV amongst others in the donor blood 11/08/19 Transfused 1 unit PRBC Hgb is 8.1 11/09/19 Discussed with son Mr Alisson House and gave him an update Blood culture positive for gram negative bacilli Proteus and Morganella WBC reduced from 19.3 on 11/06/19 to 13 on 11/08/19 11/10/19 WBC is 12.4 To have Urology consult because of suspicion of malignancy also MRI Thoracic and Lumbar vertebrae Discussed extensively with son Mr rojas about the need for an MRI 11/11/19 Discussed with son Informed him about the Coronavirus test which was positive She does not have any oxygen requirements Not a candidate for Remdesivir presently MRI on hold 11/12/19 Comfortable Eating dinner,being fed IV Vanco and Zosyn DC To be on Ceftriaxone and Flagyl for 6 weeks 11/14/19 Needs Picc line for IV Ceftriaxone 2 grams daily through 12/18/19 and Flagyl 500mg TID To discuss with disease case manager if she would be accepted back in SNF 11/15/19 Needs PICC line and DME 11/15. Stable per nurse report, 11/16 BS low this am 11/18/19 Discussed with son Mr Alisson House To have Picc line placed Also to meet with social workers/disease case manager if she would be going back to the SNF in [place] or somewhere else 11/19/19 DC planning in progress ?[facility] Review of Systems Constitutional: Positive for activity change. Unobtainable due to dementia OBJECTIVE: Vitals: 24hr Min/Max: Temp Min: 36.5 ??C (97.7 ??F) Max: 37.1 ??C (98.8 ??F) Pulse Min: 66 Max: 70 BP Min: 115/59 Max: 136/72 Resp Min: 18 Max: 20 SpO2 Min: 94 % Max: 99 % Most Recent : Vitals: 11/19/19 0206 11/19/19 0801 11/19/19 1149 11/19/19 1627 BP: 122/72 115/59 134/72 136/72 BP Location: Left arm Left arm Right arm Right arm Patient Position: Lying Lying Lying Lying Pulse: 66 66 68 70 Resp: 20 18 18 18 Temp: 36.9 ??C (98.4 ??F) 36.5 ??C (97.7 ??F) 36.7 ??C (98.1 ??F) 37 ??C (98.6 ??F) TempSrc: Oral Oral Oral Oral SpO2: 99% 98% 98% 98% Weight: Height: I/O last 2 completed shifts: In: 120 [P.O.:120] Out: 1500 [Urine:1500] I/O this shift: In: 950 [P.O.:950] Out: 1000 [Urine:1000] Physical Exam: Physical Exam Vitals signs and nursing note reviewed. Constitutional: Comments: Pleasant but confused HENT: Head: Normocephalic and atraumatic. Nose: Nose normal. Mouth/Throat: Mouth: Mucous membranes are moist. Eyes: Extraocular Movements: Extraocular movements intact. Conjunctiva/sclera: Conjunctivae normal. Pupils: Pupils are equal, round, and reactive to light. Neck: Musculoskeletal: Normal range of motion and neck supple. Cardiovascular: Rate and Rhythm: Normal rate and regular rhythm. Pulses: Normal pulses. Heart sounds: No murmur. Pulmonary: Effort: Pulmonary effort is normal. Breath sounds: Normal breath sounds. No wheezing. Abdominal: General: Bowel sounds are normal. There is distension. Palpations: Abdomen is soft. Hernia: A hernia is present. Comments: Ventral hernia at the region of the healed midline incision Skin: Comments: Bilateral stage 2 heel ulcers Stage 4 sacral decubitus ulcers Neurological: Mental Status: She is alert. Comments: Confused Psychiatric: Comments: Pleasant but confused Lab/Radiology/Diagnostic Review: Recent Results (from the past 24 hour(s)) POCT glucose Collection Time: 11/19/19 2:08 AM Result Value Ref Range Glucose, POC 215 (H) 70 - 199 mg/dL Comprehensive metabolic panel Collection Time: 11/19/19 5:20 AM Result Value Ref Range Sodium 137 135 - 145 mmol/L Potassium, pl 3.5 3.3 - 4.9 mmol/L Chloride 95 (L) 97 - 110 mmol/L CO2 30 22 - 32 mmol/L Anion gap 12 2 - 15 mmol/L BUN 33 (H) 8 - 25 mg/dL Creatinine 0.59 (L) 0.60 - 1.10 mg/dL Glucose 165 70 - 199 mg/dL Calcium 8.8 8.5 - 10.3 mg/dL Bilirubin, total 0.2 0.1 - 1.2 mg/dL Protein, pl 7.3 6.5 - 8.5 g/dL Albumin 2.7 (L) 3.5 - 5.0 g/dL Alk phos 25 (L) 40 - 130 Units/L ALT 18 7 - 45 Units/L AST 19 10 - 45 Units/L CBC with auto differential Collection Time: 11/19/19 5:20 AM Result Value Ref Range WBC 7.4 3.8 - 9.9 K/cumm Hgb 8.1 (L) 11.9 - 15.5 g/dL Hct 25.7 (L) 35.6 - 45.5 % Plt 494 (H) 150 - 400 K/cumm MPV 9.1 9.1 - 12.3 fL RBC 2.78 (L) 3.90 - 5.20 M/cumm MCV 92.4 81.3 - 96.4 fL MCH 29.1 27.1 - 33.3 pg MCHC 31.5 (L) 32.3 - 35.7 g/dL RDW CV 15.3 (H) 11.1 - 14.9 % RDW SD 50.8 (H) 35.7 - 48.1 fL NRBC abs 0.00 0.00 - 0.01 K/cumm Differential, auto Collection Time: 11/19/19 5:20 AM Result Value Ref Range Neutrophil abs 4.7 1.7 - 6.5 K/cumm Imm gran abs 0.0 0.0 - 0.1 K/cumm Lymphocyte abs 1.9 0.8 - 3.3 K/cumm Monocyte abs 0.6 0.2 - 0.8 K/cumm Eosinophil abs 0.1 0.0 - 0.5 K/cumm Basophil abs 0.1 0.0 - 0.1 K/cumm Neutrophil pct 63.6 % Imm gran pct 0.5 % Lymphocyte pct 25.7 % Monocyte pct 7.4 % Eosinophil pct 1.6 % Basophil pct 1.2 % eGFR Collection Time: 11/19/19 5:20 AM Result Value Ref Range GFR 97 mL/min/1.73 m2 POCT glucose Collection Time: 11/19/19 6:14 AM Result Value Ref Range Glucose, POC 183 70 - 199 mg/dL POCT glucose Collection Time: 11/19/19 12:13 PM Result Value Ref Range Glucose, POC 285 (H) 70 - 199 mg/dL POCT glucose Collection Time: 11/19/19 4:40 PM Result Value Ref Range Glucose, POC 278 (H) 70 - 199 mg/dL Xr Foot Left 3 Or More Views Result Date: 11/07/2019 Narrative: EXAMINATION: XR FOOT LEFT 3 OR MORE VIEWS HISTORY: The patient is a 64-year-old female who presents with pain in the left foot. TECHNIQUE: 3 views of the left foot with portable technique.FINDINGS: No fracture or dislocation is seen. Bony structures are normally mineralized. There is marked arterial calcification. Impression: No fracture or dislocation seen. Electronically signed by: Antonino Jane M.D. Xr Foot Right 3 Or More Views Result Date: 11/07/2019 Narrative: EXAMINATION: XR FOOT RIGHT 3 OR MORE VIEWS DATE: 11/06/2019 7:50 PM HISTORY: Pain. COMPARISON: None. FINDINGS: There is a large enthesophyte arising from the posterior superior aspect of the calcaneus. Linear lucency traversing the enthesophyte may represent an avulsion injury in the acute clinical setting. Soft tissue swelling is seen near the Achilles insertion on the large enthesophyte. The calcaneus demonstrates a heterogeneous appearance, which is suggestive of osteomyelitis given associated soft tissue swelling and apparent edema/cellulitis in the subcutaneous soft tissues. Atherosclerotic peripheral vascular disease is demonstrated. Significant degenerative changes in the fo refoot. Impression: 1. 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 2. Possible enthesophyte avulsion fracture/injury as detailed above. 3. Degenerative changes most significant in the forefoot. 4. Atherosclerotic peripheral vascular disease. Electronically signed by: Harlan Tomas II, D.O. Xr Abdomen Ap 1 Vw Result Date: 11/07/2019 Narrative: EXAMINATION: XR ABDOMEN AP 1 VIEW HISTORY: The patient is a 64-year-old female who presents with abdominal distention. TECHNIQUE: AP portable supine view of the abdomen. FINDINGS: Normal intestinal gas pattern. No dilated small or large bowel loops. Samara and clips are seen overlying the lower abdomen and pelvis from prior surgery. Impression: Normal gas pattern. Electronically signed by: Antonino Jane M.D. ASSESSMENT/PLAN: Active Problems: Moderate malnutrition (CMS/HCC) Sepsis Proteus and Morganella Gangrenous wounds - patient has gangrenous wounds to bilateral heels and sacral area - has had numerous debridements at [facility] - last MRI 07/02/2019 did not show osteomyelitis; may need repeat - - wound care consult - general surgery consult ?? Sepsis -may be secondary to wound infection - initial lactate 2.3, then 1.7 ??Anemia of chronic disease transfused PRBC on 11/07/19 Leukocytosis with left shift - patient has had multiple admissions for bacteremia - ID input appreciated ?? Abdominal distension - patient has history with constipation - abdominal x-ray results are negative -start on MiraLax and Colace ?? Hypertension - continue amlodipine ??COVID 19 positive On covid floor Diabetes Mellitus Type 2 -continue Lantus plus sliding scale insulin -Hgb A1c is 8.6 ?? PVD -ordered ABIs ?? Hypothyroidism -continue levothyroxine ?? Hyperlipidemia - continue atorvastatin ?? DVT prophylaxis on Lovenox and GI prophylaxis currently not indicated 1. Reji Whittaker MD * Charlotte Pedraza RD - 11/19/2019 2:03 PM CDT Nutrition Assessment Pt meets criteria for moderate malnutrition due to decreased energy intake, weight loss and physical findings, reference ASPEN guidelines. RD plan: Continue current nutrition interventions. ASPEN/AND Malnutrition Screening ASPEN/AND Malnutrition Screening: Chronic illness or injury mild/moderate Chronic Illness/Injury Mild/Moderate Energy Intake: < 75% energy intake compared to estimated energy needs > (or equal to) 1 month Weight Loss: 10% in 6 months(Pt with 16% body Wt loss in 4 months) Body Fat: Mild/Moderate Muscle Mass: Mild/Moderate Patient Meets Criteria for Moderate Malnutrition: Yes Subcutaneous Fat Loss Orbital Region - Surrounding the Eye: Somewhat hollow look Upper Arm Region - Triceps/Biceps: Some depth pinch but not ample Muscle Loss Muslim Region - Temporalis Muscle: Can see/feel well-defined muscle Clavicle Bone Region - Pectoralis Major, Deltoid, Trapezius Muscles: (Pt laying down- unable to assess) Clavicle and Acromion Bone Region - Deltoid Muscle: Rounded, curves at arm/shoulder/neck Reason for Assessment: Follow Up Encounter Date: 11/19/19 2:03 PM Nutrition Assessment and Plan: Patient is a 64 y.o. female. Admit Dx: SEPSIS. Admitted on 11/06/2019, current LOS is 11 days. Unable to reach patient for interview. Information obtained via chart review. Intakes remain fair on 2000kcal consistent CHO diet, averaging 81% intakes of documented meals over the last 5 days. Appears joseline consuming ONS well (100% x 5, 0% x 2). No N/V/D/C. GI WNL. Skin + stage 3 PrU to sacrum, unstagable wounds to L heel and L ischium. + sepsis w PICC line placed today for long-term antibiotics. [id number] over the last 24hr. Will continue 2000kcal consistent CHO diet w Ensure High PRO tid, Juvenbid. Continuing to follow intakes, supplement tolerance, labs, Wt trends, wound healing and plans of care. Current diet order: Adult Diet Modified Consistency; Mechanical Soft; Consistent Carb 2000 federico; Send on Disposables Pt intake is adequate. PO intakes: 100% x 2; 75% x 6 Nutrition Diagnosis 1: Malnutrition - Moderate Related to: Chronic illness/injury Evidenced by: Weight loss, Subcutaneous fat loss, Muscle loss, Inadequate energy intake Nutrition Diagnosis 2: Increased nutrient needs (protein)Related to: WoundsEvidenced by: Physical finding ?? Interventions: Communication(Continue current nutrition interventions) ?? Monitoring and Evaluation: Appetite, Plan of care, PO intake, Blood glucoses, Discharge plans, Supplement tolerance, Weight changes, I/O, Hydration status, Labs, Food preferences, Wound healing, Diet advancement, Electrolyte changes ?? Goals: Adequate nutrition to meet estimated needs by next assessment, Oral intake to meet 75% estimated nutritional needs by next assessment, Tolerance of medical food supplement by next assessment, Diet consistency appropriate for patient needs during stay ?? Estimated needs: ?? Total Kcal/kg Estimated Needs : 1818.19 based on Kcal/k. Type of Weight Used for Estimated Kcals: Current ?? Total Protein Estimated Needs (gm): 99.17 Protein Needs Based on g/k.2 Type of Weight Used for Estimated Protein : Current. ?? Total Fluid Estimated Needs: 2479.35 Fluid Needs Based on : 30 ml/kg. Objective Anthropometrics Weight: 82.6 kg (182 lb 3.2 oz) Admission Weight : 82.6 kg Weight Change: 14.64 kg (32.28 lbs) IBW/kg (Calculated) : 49.9 kg Height: 157.5 cm (5' 2.01 ) Weight in (lb) to have BMI = 25: 136.4 BMI (Calculated): 33.3 BMI Classification: BMI 30.0 - 34.9 Obese Class I 3 Day I/O Summary 11/16 1900 - 11/18 0659 In: 120 [P.O.:120] Out: 3050 [Urine:3050] Temp: 36.7 ??C (98.1 ??F) Past Medical History: Diagnosis Date ??? Dementia (CMS/HCC) ??? Diabetes mellitus (CMS/[facility]) ??? Hypertension Medications and Lab Review: Scheduled Meds: amLODIPine, 10 mg, oral, Daily aspirin, 325 mg, oral, Daily atorvastatin, 40 mg, oral, Nightly cefTRIAXone, 2,000 mg, intravenous, Q24H KASIE chlorthalidone, 25 mg, oral, Daily enoxaparin, 40 mg, subcutaneous, Daily-2100 gabapentin, 300 mg, oral, TID insulin glargine, 12 Units, subcutaneous, QAM insulin lispro, 1-5 Units, subcutaneous, TID with meals levothyroxine, 50 mcg, oral, Daily - 0600 lidocaine, 1-2 mL, subcutaneous, Once metroNIDAZOLE, 500 mg, oral, TID pantoprazole DR, 40 mg, oral, Daily polyethylene glycol, 17 g, oral, Daily sodium chloride 0.9%, 0.5-20 mL, intra-catheter, Q8H KASIE sodium chloride 0.9%, 5-10 mL, intra-catheter, Q8H KASIE sodium chloride 0.9%, 5-10 mL, intra-catheter, Q12H KASIE Continuous Infusions: Sodium Date Value Ref Range Status 11/19/2019 137 135 - 145 mmol/L Final Potassium, pl Date Value Ref Range Status 11/19/2019 3.5 3.3 - 4.9 mmol/L Final BUN Date Value Ref Range Status 11/19/2019 33 (H) 8 - 25 mg/dL Final Creatinine Date Value Ref Range Status 11/19/2019 0.59 (L) 0.60 - 1.10 mg/dL Final Albumin Date Value Ref Range Status 11/19/2019 2.7 (L) 3.5 - 5.0 g/dL Final Calcium Date Value Ref Range Status 11/19/2019 8.8 8.5 - 10.3 mg/dL Final Lab Results Component Value Date HGBA1C 8.6 (H) 11/07/2019 Lab Results Component Value Date GLUCOSE 285 (H) 11/19/2019 GLUCOSE 183 11/19/2019 GLUCOSE 165 11/19/2019 GLUCOSE 215 (H) 11/19/2019 GLUCOSE 216 (H) 11/18/2019 GLUCOSE 260 (H) 11/18/2019 GLUCOSE 137 11/18/2019 GLUCOSE 109 11/17/2019 Nursing Assessment: Last BM Date: 11/18/19(per pt) Bowel Sounds (All Quadrants): Active, Present, Audible Grayson Scale Score: 14 Skin Integrity: Other (Comment)(wounds) Type of Wound (LDA): Pressure ulcer/Pressure Injury Pressure Ulcer/Pressure Injury 11/06/19 Transverse Sacrum-Pressure Ulcer Status: Evolving Pressure Ulcer/Pressure Injury 11/07/19 Left Ischium-Pressure Ulcer Status: Unchanged Pressure Ulcer/Pressure Injury 11/07/19 Left;Right Heel-Pressure Ulcer Status: Evolving Diet Instructions Continue a mechanical soft diet and avoid restrictions to encourage intakes, but avoid sugary drinks like lemonade, regular soda, gatorade, and sweet tea. Recommend Ensure High Protein with all mealsand 2 packets of Emmanuel each day for optimal wound healing.Call [facility] Dietitian's office at [phone] for questions about your diet. Nutrition Follow-Up : 11/22/[address],[place] * Avtar Mcknight MD - 11/19/2019 1:56 PM CDT Images from the original note were not included. Infectious Disease Progress Note Iris Gil Admit Date: 11/06/2019 4:27 PM 11/19/2019 Hospital Day: 14 Subjective: Afebrile. Comfortable on room air.S/p PICC ,SNF placement P. No new issues. ROS: Denies N/V/D/SOB/cough/rashes Allergies: Allergies Allergen Reactions ? ? Codeine Phosphate Nausea & Vomiting MEDICATIONS FOR CURRENT ENCOUNTER: Current Facility-Administered Medications Medication Dose Route Frequency Provider Last Rate Last Dose ??? acetaminophen (TYLENOL) tablet 650 mg 650 mg oral Q6H PRN Reji Whittaker MD 650 mg at 11/18/19 2337 ??? amLODIPine (NORVASC) tablet 10 mg 10 mg oral Daily Zack Akombeljuice, PULLING UNIT OPERATOR 10 mg at 11/19/19824 ??? aspirin tablet 325 mg 325 mg oral Daily Zack Akombeljuice, PULLING UNIT OPERATOR 325 mg at 11/19/19824 ??? atorvastatin (LIPITOR) tablet 40 mg 40 mg oral Nightly Zack Akombelwa, PULLING UNIT OPERATOR 40 mg at 11/18/19 1939 ??? cefTRIAXone (ROCEPHIN) 2,000 mg/20 mL in sterile water (premix) 2,000 mg 2,000 mg intravenous Q24H [facility] Markel Bourgeois MD 2,000 mg at 11/19/19 0824 ??? chlorthalidone tablet 25 mg 25 mg oral Daily Zack Loganeljuice PULLING UNIT OPERATOR 25 mg at 11/19/19824 ??? cloNIDine (CATAPRES) tablet 0.1 mg 0.1 mg oral Q6H PRN Reji Whittaker MD 0.1 mg at 11/10/19 1656 ??? dextrose oral liquid liquid 15 g 15 g oral Q15 Min PRN Reji Whittaker MD Or ??? dextrose (D10W) 10% bolus 250 mL 250 mL intravenous Q15 Min PRN Reji Whittaker MD ??? docusate sodium (COLACE) capsule 100 mg 100 mg oral BID PRN Sina Schilling MD 100 mg at 11/15/192025 ??? enoxaparin (LOVENOX) syringe 40 mg 40 mg subcutaneous Daily-2100 Reji Whittaker MD 40 mg at 11/18/191937 ??? gabapentin (NEURONTIN) capsule 300 mg 300 mg oral TID Zack Johnson NP 300 mg at 11/19/19824 ??? glucagon injection 1 mg 1 mg intramuscular Q30 Min PRN Reji Whittaker MD ??? insulin glargine (LANTUS) injection 12 Units 12 Units subcutaneous QAM Nita Potter MD 12 Units at 11/19/19824 ??? insulin lispro (HumaLOG, ADMELOG) injection 1-5 Units 1-5 Units subcutaneous TID with meals Reji Whittaker MD 5 Units at 11/19/19 1300 ??? levothyroxine (SYNTHROID) tablet 50 mcg 50 mcg oral Daily - 0600 Zack Johnson NP 50 mcg at11/19/19608 ??? lidocaine PF (XYLOCAINE) 10 mg/mL (1 %) preservative free injection 10-20 mg 1-2 mL subcutaneous Once Nita Potter MD ??? metroNIDAZOLE (FLAGYL) tablet 500 mg 500 mg oral TID Markel Bourgeois MD 500 mg at 11/19/19824 ??? ondansetron ODT (ZOFRAN-ODT) disintegrating tablet 4 mg 4 mg oral Q6H PRN Sina Schilling MD Or ??? ondansetron (ZOFRAN) injection 4 mg 4 mg intravenous Q6H PRN Sina Schilling MD ??? pantoprazole DR (PROTONIX) extended release tablet 40 mg 40 mg oral Daily Zack Johnson NP 40 mg at 11/19/19824 ??? polyethylene glycol (MIRALAX) packet 17 g 17 g oral Daily Zack Johnson, PULLING UNIT OPERATOR 17 g at 11/19/200725 ??? sodium chloride 0.9% flush 0.5-20 mL 0.5-20 mL intra-catheter Q8H [facility] Sina Schilling MD 10mL at 11/19/19 0827 ??? sodium chloride 0.9% flush 0.5-20 mL 0.5-20 mL intra-catheter PRN Sina Schilling MD ??? sodium chloride 0.9% flush 5-10 mL 5-10 mL intra-catheter Q8H [facility] CARLOS Alvarado ??? sodium chloride 0.9% flush 5-10 mL 5-10 mL intra-catheter PRN CARLOS Alvarado ??? sodium chloride 0.9% flush 5-10 mL 5-10 mL intra-catheter Q12H [facility] Nita Potter MD 10 mL at 11/19/19 1305 ??? sodium chloride 0.9% flush 5-20 mL 5-20 mL intra-catheter PRN Nita Potter MD Objective: Vitals: 11/18/19 2237 11/19/19 0206 11/19/19 0801 11/19/19 1149 BP: 132/60 122/72 115/59 134/72 BP Location: Left arm Left arm Left arm Right arm Patient Position: Lying Lying Lying Lying Pulse: 70 66 66 68 Resp: Temp: 37.1 ??C (98.8 ??F) 36.9 ??C (98.4 ??F) 36.5 ??C (97.7 ??F) 36.7 ??C (98.1 ??F) TempSrc: Oral Oral Oral Oral SpO2: 97% 99% 98% 98% Weight: Height: Temp (24hrs), Av.8 ??C (98.2 ??F), Min:36.5 ??C (97.7 ??F), Max:37.1 ??C (98.8 ??F) Height: 157.5 cm (5' 2.01 ) Weight: 82.6 kg (182 lb 3.2 oz) Intake/Output Summary (Last 24 hours) at 11/19/2019 1356 Last data filed at 11/19/2019 1320 Gross per 24 hour Intake 830 ml Output 1500 ml Net -670 ml Exam: General appearance: alert, cooperative, no distress HEENT: (-)icterus, Oropharnyx is dry Neck: No palpable LN Lungs: breath sounds normal and symmetric; minimal respiratory effort, no r/w/c Heart: regular rhythm, normal S1 and S2, no m/r/g Abdomen: soft without mass, non-tender, +bowel sounds, no HSM Skin: (-)new rashes, necrotic ulcerations bilaterally on heels. MSK: no gross deformities, FROM Vascular: no Edema, Neuro: No 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 Psych: Flat affect Lab: Reviewed. Recent Labs Lab Units 11/19/19 1213 11/19/19 0614 11/19/19 0520 11/18/19 0510 11/17/19 0437 SODIUM mmol/L -- -- 137 -- 140 -- 138 POTASSIUM PLASMA mmol/L -- -- 3.5 -- 3.7 -- 4.0 CHLORIDE mmol/L -- -- 95* -- 97 -- 96* CO2 mmol/L -- -- 30 -- 31 -- 30 ANIONGAP mmol/L -- -- 12 -- 12 -- 12 GLUCOSE mg/dL -- -- 165 -- 137 -- 109 POC GLUCOSE MONITOR mg/dL 285* 183 -- < > -- < > -- BUN SERUM mg/dL -- -- 33* -- 31* -- 29* CREATININE mg/dL -- -- 0.59* -- 0.61 -- 0.73 CALCIUM mg/dL -- -- 8.8 -- 8.8 -- 8.7 ALBUMIN g/dL -- -- 2.7* -- 2.7* -- 2.6* ALK PHOS Units/L -- -- 25* -- 26* -- 24* ALT Units/L -- -- 18 -- 18 -- 20 AST Units/L -- -- 19 -- 24 -- 20 BILIRUBIN TOTAL mg/dL -- -- 0.2 -- 0.2 -- 0.2 < > = values in this interval not displayed. Lab Results Component Value Date WBC 7.4 11/19/2019 HGB 8.1 (L) 11/19/2019 HCT 25.7 (L) 11/19/2019 MCV 92.4 11/19/2019 LABPLAT 494 (H) 11/19/2019 Cultures: 11/05 Blood cx: Proteus mirabilis 2/2, Morganella morganii 1/2 (S: CTX, cefepime, zosyn) 11/07 blood cx: neg 11/06 Urine cx: contaminated 11/08 left heel cx: Proteus mirabilis, morganella morganii, mixed microorganisms 11/08 right heel cx: Proteus mirabilis and mixed microorganisms 11/08 covid-19: positive Imagin/27 x-ray of the right foot: Positive calcaneal osteo 11/07 CT A/P w: Cardiomegaly and small pericardial effusion Very large well-circumscribed fluid collection associated with surgical samara in the ventral abdominal wall suggesting a large seroma Marked bladder wall thickening suspicious for either chronic inflammation and/or possible neoplasm Numerous possible lytic foci in the thoracic and lumbar vertebra as noted above recommend MR imaging with and without contrast if Possible 11/07 Arterial dopplers bl LE: There is severe arterial insufficiency in both lower extremities, primarily in an infrapopliteal location. Assessment: 1. Right heel ulcer the with osteo 2. Diabetes mellitus 3. Dementia 4. Leukocytosis 5. Gram-negative bacteremia 6. Left heel ulcer 7. Fluid collection with surgical samara in ventral abdominal wall ?seroma 8. Severe PVD 9. COVID-19 Plan: 1.Continue ceftriaxone 2 gm IV daily and Flagyl 500 mg PO TID for 6 weeks until 12/18/2019 if no further intervention 2. MRI spine On hold 3. Continue supportive care 4. Continue wound care as per surgery 5. Weekly labs, CBC with diff, CMP, faxed to [phone] 6. Follow up with Dr. Bourgeois in 2-3 weeks [phone] Avtar Mcknight MD [place] [facility] Call [phone] 11/19/2019 1:56 PM * Joeslin Heck LPN - 11/19/2019 10:06 AM CDT Images from the original note were not included. SWAT Assessment Impression: Pt at risk for skin breakdown d/t delayed wound healing, dm, and poor nutrition. Pt at this time with multiple pressure injuries that are chronic and poor healing. Pressure injury locations at this time are bilat heels and sacral area. Pt is current pt of Sarah. Pt wound dressing changes are done per MD orders. Sacral ulcers look to be healing but still with small amount of drainage. Heel ulcers unchanged Plan:q2hr turning with wedge offloading, waffle mattress in place, prevalon boots applied. Follow wound dressing orders per MD. Pt with kaplan in at this time. Daily mari/ kaplan care. Use of absorbantpads, keep pt clean and dry. Goal: Wound management, Pressure relief, moisture management * Reji Whittaker MD - 11/18/2019 3:32 PM CDT General Medicine Daily Progress SUBJECTIVE: Chief complaint of Chronic Non healing wounds bilateral feet and stage 4 gluteal decubitus ulcers. Interval History: *Chart reviewed and pt examined Patient is a 64 y.o. female with a medical history of dementia, diabetes type 2, hyperlipidemia, hypothyroidism, neuropathy, PVD, hypertension and chronic wounds who presents from a correction for wound evaluation. Patient who is A&O x1 is unable to give any accurate history, all history obtained from chart review. Patient has wound to her buttocks and bilateral heels that are gangrenous and complains of bilateral leg pain. Also patient has had numerous admissions at [facility] for bacteremia requiring IV antibiotics and wound care. Evaluation in the ER shows Na 134, BUN 39, creatinine 1.07, glucose 210, AST 67, ALT 63, initial lactate 2.3, then 1.7, WBC 19.3 with left shift, hemoglobin 7.9, hematocrit 24.1, blood cultures were drawn and pending, urinalysis pending. KUB was done and results not final; x-rays of bilateral feet also have results pending. Patient remains afebrile but hypertensive. Patient was given IV fluid bolus, Zosyn, and started on vancomycin Patient will be admitted for further evaluation and treatment 11/07/19 Consultants input appreciated Called Son Braulio Turner at [phone] He would want another Son whose number he would get give consent for Transfusion 11/07/19 17:45 Spoke with Son Mr Alisson House [phone] He consents to having his mother transfused with PRBC I Discussed the indications,type and cross match and also checking for infections which include hepatitis and HIV amongst others in the donor blood 11/08/19 Transfused 1 unit PRBC Hgb is 8.1 11/09/19 Discussed with son Mr Alisson House and gave him an update Blood culture positive for gram negative bacilli Proteus and Morganella WBC reduced from 19.3 on 11/06/19 to 13 on 11/08/19 11/10/19 WBC is 12.4 To have Urology consult because of suspicion of malignancy also MRI Thoracic and Lumbar vertebrae Discussed extensively with son Mr rojas about the need for an MRI 11/11/19 Discussed with son Informed him about the Coronavirus test which was positive She does not have any oxygen requirements Not a candidate for Remdesivir presently MRI on hold 11/12/19 Comfortable Eating dinner,being fed IV Vanco and Zosyn DC To be on Ceftriaxone and Flagyl for 6 weeks 11/14/19 Needs Picc line for IV Ceftriaxone 2 grams daily through 12/18/19 and Flagyl 500mg TID To discuss with disease case manager if she would be accepted back in SNF 11/15/19 Needs PICC line and DME 11/15. Stable per nurse report, 11/16 BS low this am 11/18/19 Discussed with son Mr Alisson House To have Picc line placed Also to meet with social workers/disease case manager if she would be going back to the SNF in [place] or somewhere else Review of Systems Constitutional: Positive for activity change. Unobtainable due to dementia OBJECTIVE: Vitals: 24hr Min/Max: Temp Min: 36.3 ??C (97.3 ??F) Max: 36.7 ??C (98 ??F) Pulse Min: 64 Max: 78 BP Min: 110/44 Max: 122/60 Resp Min: 20 Max: 20 SpO2 Min: 91 % Max: 98 % Most Recent : Vitals: 11/18/19 0232 11/18/19 0730 11/18/19 1107 11/18/19 1506 BP: 122/60 111/63 (!) 110/44 112/52 BP Location: Left arm Left arm Right arm Right arm Patient Position: Lying Lying Lying Lying Pulse: 66 74 66 64 Resp: Temp: 36.5 ??C (97.7 ??F) 36.6 ??C (97.8 ??F) 36.3 ??C (97.3 ??F) 36.5 ??C (97.7 ??F) TempSrc: Temporal Temporal Temporal SpO2: 95% 96% 92% 91% Weight: Height: I/O last 2 completed shifts: In: 0 Out: 3000 [Urine:3000] No intake/output data recorded. Physical Exam: Physical Exam Vitals signs and nursing note reviewed. Constitutional: Comments: Pleasant but confused HENT: Head: Normocephalic and atraumatic. Nose: Nose normal. Mouth/Throat: Mouth: Mucous membranes are moist. Eyes: Extraocular Movements: Extraocular movements intact. Conjunctiva/sclera: Conjunctivae normal. Pupils: Pupils are equal, round, and reactive to light. Neck: Musculoskeletal: Normal range of motion and neck supple. Cardiovascular: Rate and Rhythm: Normal rate and regular rhythm. Pulses: Normal pulses. Heart sounds: No murmur. Pulmonary: Effort: Pulmonary effort is normal. Breath sounds: Normal breath sounds. No wheezing. Abdominal: General: Bowel sounds are normal. There is distension. Palpations: Abdomen is soft. Hernia: A hernia is present. Comments: Ventral hernia at the region of the healed midline incision Skin: Comments: Bilateral stage 2 heel ulcers Stage 4 sacral decubitus ulcers Neurological: Mental Status: She is alert. Comments: Confused Psychiatric: Comments: Pleasant but confused Lab/Radiology/Diagnostic Review: Recent Results (from the past 24 hour(s)) POCT glucose Collection Time: 11/17/19 4:54 PM Result Value Ref Range Glucose, POC 301 (H) 70 - 199 mg/dL POCT glucose Collection Time: 11/17/19 7:28 PM Result Value Ref Range Glucose, POC 291 (H) 70 - 199 mg/dL POCT glucose Collection Time: 11/18/19 2:16 AM Result Value Ref Range Glucose, POC 184 70 - 199 mg/dL Comprehensive metabolic panel Collection Time: 11/18/19 5:10 AM Result Value Ref Range Sodium 140 135 - 145 mmol/L Potassium, pl 3.7 3.3 - 4.9 mmol/L Chloride 97 97 - 110 mmol/L CO2 31 22 - 32 mmol/L Anion gap 12 2 - 15 mmol/L BUN 31 (H) 8 - 25 mg/dL Creatinine 0.61 0.60 - 1.10 mg/dL Glucose 137 70 - 199 mg/dL Calcium 8.8 8.5 - 10.3 mg/dL Bilirubin, total 0.2 0.1 - 1.2 mg/dL Protein, pl 7.3 6.5 - 8.5 g/dL Albumin 2.7 (L) 3.5 - 5.0 g/dL Alk phos 26 (L) 40 - 130 Units/L ALT 18 7 - 45 Units/L AST 24 10 - 45 Units/L eGFR Collection Time: 11/18/19 5:10 AM Result Value Ref Range GFR 96 mL/min/1.73 m2 POCT glucose Collection Time: 11/18/19 6:18 AM Result Value Ref Range Glucose, POC 143 70 - 199 mg/dL POCT glucose Collection Time: 11/18/19 11:24 AM Result Value Ref Range Glucose, POC 260 (H) 70 - 199 mg/dL Xr Foot Left 3 Or More Views Result Date: 11/07/2019 Narrative: EXAMINATION: XR FOOT LEFT 3 OR MORE VIEWS HISTORY: The patient is a 64-year-old female who presents with pain in the left foot. TECHNIQUE: 3 views of the left foot with portable technique.FINDINGS: No fracture or dislocation is seen. Bony structures are normally mineralized. There is marked arterial calcification. Impression: No fracture or dislocation seen. Electronically signed by: Antonino Jane M.D. Xr Foot Right 3 Or More Views Result Date: 11/07/2019 Narrative: EXAMINATION: XR FOOT RIGHT 3 OR MORE VIEWS DATE: 11/06/2019 7:50 PM HISTORY: Pain. COMPARISON: None. FINDINGS: There is a large enthesophyte arising from the posterior superior aspect of the calcaneus. Linear lucency traversing the enthesophyte may represent an avulsion injury in the acute clinical setting. Soft tissue swelling is seen near the Achilles insertion on the large enthesophyte. The calcaneus demonstrates a heterogeneous appearance, which is suggestive of osteomyelitis given associated soft tissue swelling and apparent edema/cellulitis in the subcutaneous soft tissues. Atherosclerotic peripheral vascular disease is demonstrated. Significant degenerative changes in the fo refoot. Impression: 1. 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 2. Possible enthesophyte avulsion fracture/injury as detailed above. 3. Degenerative changes most significant in the forefoot. 4. Atherosclerotic peripheral vascular disease. Electronically signed by: Harlan Tomas II, D.O. Xr Abdomen Ap 1 Vw Result Date: 11/07/2019 Narrative: EXAMINATION: XR ABDOMEN AP 1 VIEW HISTORY: The patient is a 64-year-old female who presents with abdominal distention. TECHNIQUE: AP portable supine view of the abdomen. FINDINGS: Normal intestinal gas pattern. No dilated small or large bowel loops. Samara and clips are seen overlying the lower abdomen and pelvis from prior surgery. Impression: Normal gas pattern. Electronically signed by: Antonino Jane M.D. ASSESSMENT/PLAN: Active Problems: Moderate malnutrition (CMS/HCC) Sepsis Proteus and Morganella Gangrenous wounds - patient has gangrenous wounds to bilateral heels and sacral area - has had numerous debridements at [facility] - last MRI 07/02/2019 did not show osteomyelitis; may need repeat - - wound care consult - general surgery consult ?? Sepsis -may be secondary to wound infection - initial lactate 2.3, then 1.7 ??Anemia of chronic disease transfused PRBC on 11/07/19 Leukocytosis with left shift - patient has had multiple admissions for bacteremia - ID input appreciated ?? Abdominal distension - patient has history with constipation - abdominal x-ray results are negative -start on MiraLax and Colace ?? Hypertension - continue amlodipine ??COVID 19 positive On covid floor Diabetes Mellitus Type 2 -continue Lantus plus sliding scale insulin -Hgb A1c is 8.6 ?? PVD -ordered ABIs ?? Hypothyroidism -continue levothyroxine ?? Hyperlipidemia - continue atorvastatin ?? DVT prophylaxis on Lovenox and GI prophylaxis currently not indicated 1. Reji Whittaker MD * Oleksandr Ozuna NP - 11/18/2019 10:45 AM CDT Images from the original note were not included. Infectious Disease Progress Note Iris Gil Admit Date: 11/06/2019 4:27 PM 11/18/2019 Hospital Day: 13 Subjective: Afebrile. Comfortable on room air. Plan for PICC soon and SNF placement. Pt is eating lunch. No newissues. ROS: Denies N/V/D/SOB/cough/rashes Allergies: Allergies Allergen Reactions ? ? Codeine Phosphate Nausea & Vomiting MEDICATIONS FOR CURRENT ENCOUNTER: Current Facility-Administered Medications Medication Dose Route Frequency Provider Last Rate Last Dose ??? acetaminophen (TYLENOL) tablet 650 mg 650 mg oral Q6H PRN Reji Whittaker MD 650 mg at 11/17/192103 ??? amLODIPine (NORVASC) tablet 10 mg 10 mg oral Daily Zack Johnson PULLING UNIT OPERATOR 10 mg at 11/18/19805 ??? aspirin tablet 325 mg 325 mg oral Daily Zack Johnson PULLING UNIT OPERATOR 325 mg at 11/18/19805 ??? atorvastatin (LIPITOR) tablet 40 mg 40 mg oral Nightly Zack Johnson PULLING UNIT OPERATOR 40 mg at 11/17/191921 ??? cefTRIAXone (ROCEPHIN) 2,000 mg/20 mL in sterile water (premix) 2,000 mg 2,000 mg intravenous Q24H [facility] Markel Bourgeois MD 2,000 mg at 11/18/19805 ??? chlorthalidone tablet 25 mg 25 mg oral Daily Zack Johnson NP 25 mg at 11/18/19805 ??? cloNIDine (CATAPRES) tablet 0.1 mg 0.1 mg oral Q6H PRN Reji Whittaker MD 0.1 mg at 11/10/191655 ??? dextrose oral liquid liquid 15 g 15 g oral Q15 Min PRN Reji Whittaker MD Or ??? dextrose (D10W) 10% bolus 250 mL 250 mL intravenous Q15 Min PRN Reji Whittaker MD ??? docusate sodium (COLACE) capsule 100 mg 100 mg oral BID PRN Sina Schilling MD 100 mg at 11/15/192025 ??? enoxaparin (LOVENOX) syringe 40 mg 40 mg subcutaneous Daily-2100 Reji Whittaker MD 40 mg at 11/17/191920 ??? gabapentin (NEURONTIN) capsule 300 mg 300 mg oral TID Zack Johnson NP 300 mg at 11/18/19805 ??? glucagon injection 1 mg 1 mg intramuscular Q30 Min PRN Reji Whittaker MD ??? insulin glargine (LANTUS) injection 12 Units 12 Units subcutaneous QAM Nita Potter MD 12 Units at 11/18/19806 ??? insulin lispro (HumaLOG, ADMELOG) injection 1-5 Units 1-5 Units subcutaneous TID with meals Reji Whittaker MD 1 Units at 11/18/19620 ??? levothyroxine (SYNTHROID) tablet 50 mcg 50 mcg oral Daily - 06 Zack Johnson NP 50 mcg at11/18/19612 ??? metroNIDAZOLE (FLAGYL) tablet 500 mg 500 mg oral TID Markel Bourgeois MD 500 mg at 11/18/19805 ??? ondansetron ODT (ZOFRAN-ODT) disintegrating tablet 4 mg 4 mg oral Q6H PRN Sina Schilling MD Or ??? ondansetron (ZOFRAN) injection 4 mg 4 mg intravenous Q6H PRN Sina Schilling MD ??? pantoprazole DR (PROTONIX) extended release tablet 40 mg 40 mg oral Daily Zack Johnson NP 40 mg at 11/18/19805 ??? polyethylene glycol (MIRALAX) packet 17 g 17 g oral Daily Zack Johnson NP 17 g at ??? sodium chloride 0.9% flush 0.5-20 mL 0.5-20 mL intra-catheter Q8H KASIE Sina Schilling MD 10mL at 11/18/19612 ??? sodium chloride 0.9% flush 0.5-20 mL 0.5-20 mL intra-catheter PRN Sina Schilling MD Objective: Vitals: 11/17/19 1955 11/17/19 2227 11/18/19 0232 11/18/19 0730 BP: 113/55 113/55 122/60 111/63 BP Location: Left arm Left arm Left arm Left arm Patient Position: Lying Lying Lying Lying Pulse: 78 73 66 74 Resp: Temp: 36.7 ??C (98 ??F) 36.5 ??C (97.7 ??F) 36.5 ??C (97.7 ??F) 36.6 ??C (97.8 ??F) TempSrc: Temporal Temporal Temporal Temporal SpO2: 95% 98% 95% 96% Weight: Height: Temp (24hrs), Av.5 ??C (97.7 ??F), Min:36.3 ??C (97.3 ??F), Max:36.7 ??C (98 ??F) Height: 157.5 cm (5' 2.01 ) Weight: 82.6 kg (182 lb 3.2 oz) Intake/Output Summary (Last 24 hours) at 11/18/2019 1045 Last data filed at 11/18/2019 0600 Gross per 24 hour Intake 0 ml Output 1800 ml Net -1800 ml Exam: General appearance: alert, cooperative, no distress HEENT: (-)icterus, Oropharnyx is dry Neck: No palpable LN Lungs: breath sounds normal and symmetric; minimal respiratory effort, no r/w/c Heart: regular rhythm, normal S1 and S2, no m/r/g Abdomen: soft without mass, non-tender, +bowel sounds, no HSM Skin: (-)new rashes, necrotic ulcerations bilaterally on heels. MSK: no gross deformities, FROM Vascular: no Edema, Neuro: No 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 Psych: Flat affect Lab: Reviewed. Recent Labs Lab Units 11/18/19 0618 11/18/19 0510 11/18/19 0216 11/17/19 0437 11/16/19 0412 SODIUM mmol/L -- 140 -- -- 138 -- 138 POTASSIUM PLASMA mmol/L -- 3.7 -- -- 4.0 -- 3.4 CHLORIDE mmol/L -- 97 -- -- 96* -- 95* CO2 mmol/L -- 31 -- -- 30 -- 32 ANIONGAP mmol/L -- 12 -- -- 12 -- 11 GLUCOSE mg/dL -- 137 -- -- 109 -- 152 POC GLUCOSE MONITOR mg/dL 143 -- 184 < > -- < > -- BUN SERUM mg/dL -- 31* -- -- 29* -- 33* CREATININE mg/dL -- 0.61 -- -- 0.73 -- 0.71 CALCIUM mg/dL -- 8.8 -- -- 8.7 -- 8.7 ALBUMIN g/dL -- 2.7* -- -- 2.6* -- 2.7* ALK PHOS Units/L -- 26* -- -- 24* -- 38* ALT Units/L -- 18 -- -- 20 -- 25 AST Units/L -- 24 -- -- 20 -- 20 BILIRUBIN TOTAL mg/dL -- 0.2 -- -- 0.2 -- <0.2 < > = values in this interval not displayed. Lab Results Component Value Date WBC 12.4 (H) 11/10/2019 HGB 7.9 (L) 11/10/2019 HCT 24.5 (L) 11/10/2019 MCV 90.4 11/10/2019 LABPLAT 365 11/10/2019 Cultures: 11/05 Blood cx: Proteus mirabilis 2/2, Morganella morganii 1/2 (S: CTX, cefepime, zosyn) 11/07 blood cx: neg 11/06 Urine cx: contaminated 11/08 left heel cx: Proteus mirabilis, morganella morganii, mixed microorganisms 11/08 right heel cx: Proteus mirabilis and mixed microorganisms 11/08 covid-19: positive Imagin/27 x-ray of the right foot: Positive calcaneal osteo 11/07 CT A/P w: Cardiomegaly and small pericardial effusion Very large well-circumscribed fluid collection associated with surgical samara in the ventral abdominal wall suggesting a large seroma Marked bladder wall thickening suspicious for either chronic inflammation and/or possible neoplasm Numerous possible lytic foci in the thoracic and lumbar vertebra as noted above recommend MR imaging with and without contrast if Possible 11/07 Arterial dopplers bl LE: There is severe arterial insufficiency in both lower extremities, primarily in an infrapopliteal location. Assessment: 1. Right heel ulcer the with osteo 2. Diabetes mellitus 3. Dementia 4. Leukocytosis 5. Gram-negative bacteremia 6. Left heel ulcer 7. Fluid collection with surgical samara in ventral abdominal wall ?seroma 8. Severe PVD 9. COVID-19 Plan: 1.Continue ceftriaxone 2 gm IV daily and Flagyl 500 mg PO TID for 6 weeks until 12/18/2019 if no further intervention 2. MRI spine On hold 3. Continue supportive care 4. Continue wound care as per surgery 5. Weekly labs, CBC with diff, CMP, faxed to [phone] 6. Follow up with Dr. Bourgeois in 2-3 weeks [phone] Oleksandr Ozuna NP [facility] Call [phone] 11/18/2019 10:45 AM Cosigned by Avtar Mcknight MD at 11/18/2019 3:48 PM CDT * Nita Potter MD - 11/17/2019 10:59 AM CDT Admit Date: 11/06/2019 4:27 PM Hospital Day: 12 Clinical Course Pt is admitted for wound check, work up c/w sepsis w gangrenous wound on bila heels and sacral Consultants input appreciated Called Son Braulio Turner at [phone] He would want another Son whose number he would get give consent for Transfusion 11/07/19 17:45 Spoke with Son Mr Alisson House [phone] He consents to having his mother transfused with PRBC I Discussed the indications,type and cross match and also checking for infections which include hepatitis and HIV amongst others in the donor blood 11/08/19 Transfused 1 unit PRBC Hgb is 8.1 11/09/19 Discussed with son Mr Alisson House and gave him an update Blood culture positive for gram negative bacilli Proteus and Morganella WBC reduced from 19.3 on 11/06/19 to 13 on 11/08/19 11/10/19 WBC is 12.4 To have Urology consult because of suspicion of malignancy also MRI Thoracic and Lumbar vertebrae Discussed extensively with son Mr rojas about the need for an MRI 11/11/19 Discussed with son Informed him about the Coronavirus test which was positive She does not have any oxygen requirements Not a candidate for Remdesivir presently MRI on hold 11/12/19 Comfortable Eating dinner,being fed IV Vanco and Zosyn DC To be on Ceftriaxone and Flagyl for 6 weeks 11/14/19 Needs Picc line for IV Ceftriaxone 2 grams daily through 12/18/19 and Flagyl 500mg TID To discuss with disease case manager if she would be accepted back in SNF 11/15. Stable per nurse report, 11/16 low this am Subjective: Denies obvious pain no cough or sob no n/v/d no new focal weakness, paresthesia Scheduled Meds amLODIPine, 10 mg, oral, Daily aspirin, 325 mg, oral, Daily atorvastatin, 40 mg, oral, Nightly cefTRIAXone, 2,000 mg, intravenous, Q24H [facility]IE chlorthalidone, 25 mg, oral, Daily enoxaparin, 40 mg, subcutaneous, Daily-2100 gabapentin, 300 mg, oral, TID insulin glargine, 12 Units, subcutaneous, QAM insulin lispro, 1-5 Units, subcutaneous, TID with meals levothyroxine, 50 mcg, oral, Daily - 0600 metroNIDAZOLE, 500 mg, oral, TID pantoprazole DR, 40 mg, oral, Daily polyethylene glycol, 17 g, oral, Daily sodium chloride 0.9%, 0.5-20 mL, intra-catheter, Q8H KASIE ??? acetaminophen ??? cloNIDine ??? dextrose OR dextrose ??? docusate sodium ??? glucagon ??? ondansetron ODT OR ondansetron ??? sodium chloride 0.9% Data Vitals: 11/16/19 1939 11/17/19 0007 11/17/19 0420 11/17/19 0749 BP: 116/53 131/51 124/62 108/55 BP Location: Right arm Left arm Left arm Left arm Patient Position: Lying Lying Lying Sitting Pulse: 66 76 66 63 Resp: Temp: 36.9 ??C (98.4 ??F) 36.9 ??C (98.4 ??F) 36.8 ??C (98.2 ??F) 36.3 ??C (97.3 ??F) TempSrc: Oral Oral Oral Temporal SpO2: 99% 97% 99% 95% Weight: Height: @WTMULTIPLE@ Intake/Output Summary (Last 24 hours) at 11/17/2019 1059 Last data filed at 11/17/2019 1045 Gross per 24 hour Intake 360 ml Output 2150 ml Net -1790 ml Exam Gen: no distress HEENT: NCAT, EOMI, No scleral icterus Chest: CTAB, no wheezes or rhonchi, no tachypnea Cv: RRR, no M/R/G Abd: soft, no tender, no distention with a soft mass in mid abd Ext: chronic change, rt foot dressed, sacral wound not exmained at this time, picture reviewed, Skin: no acute rash, wound as above Neuro: axa, proper for simple questions and commands Lab Data Reviewed. Recent Labs Lab Units 11/17/19 0631 11/17/19 0437 11/17/19 0419 11/16/19 0412 11/15/19 0416 SODIUM mmol/L -- 138 -- -- 138 -- 135 POTASSIUM PLASMA mmol/L -- 4.0 -- -- 3.4 -- 3.6 CHLORIDE mmol/L -- 96* -- -- 95* -- 93* CO2 mmol/L -- 30 -- -- 32 -- 30 ANIONGAP mmol/L -- 12 -- -- 11 -- 12 GLUCOSE mg/dL -- 109 -- -- 152 -- 296* POC GLUCOSE MONITOR mg/dL 105 -- 114 < > -- < > -- BUN SERUM mg/dL -- 29* -- -- 33* -- 28* CREATININE mg/dL -- 0.73 -- -- 0.71 -- 0.62 CALCIUM mg/dL -- 8.7 -- -- 8.7 -- 8.7 ALBUMIN g/dL -- 2.6* -- -- 2.7* -- 2.3* ALK PHOS Units/L -- 24* -- -- 38* -- 35* ALT Units/L -- 20 -- -- 25 -- 30 AST Units/L -- 20 -- -- 20 -- 25 BILIRUBIN TOTAL mg/dL -- 0.2 -- -- <0.2 -- 0.2 < > = values in this interval not displayed. Other Data Assessment and Plan Active Problems: Moderate malnutrition (CMS/HCC) Sepsis Proteus and Morganella Gangrenous wounds -??patient has gangrenous wounds to bilateral heelsand sacral area, rt heel osteomyelitis, -??has had numerous debridements -??last MRI 07/02/2019 did not show osteomyelitis;?? -??wound care consult -??GS consulted, wound debrided, rec diverting colostomy ?? Sepsis, due to wound infection -??initial lactate 2.3,??then 1.7 - improved ?? Abdominal distension -??patient has history with constipation -??abdominal x-ray results are negative -start on MiraLax and Colace - CT a/p 11/07 Very large well-circumscribed fluid collection associated with surgical samara in the ventral abdominal wall suggesting a large seroma ?? Hypertension -??continue amlodipine COVID 19 positive on 11/08, clinically stable, isolation per protocol Diabetes Mellitus Type 2, unc, -Hgb A1c is 8.6 - Lantus and ssi, dec lantus, stop bedtime ssi - follow fs to adjust PVD, ABIs11/07: severe arterial insufficiency in both lower extremities, surgeon follow ?? Hypothyroidism, levothyroxine ?? HLD, atorvastatin ?? DVT Prophylaxis: lovenox Disharge Plan: plan PICC placement on 11/17 and snf Nita Potter MD 11/17/2019 10:59 AM * Oleksandr Ozuna NP - 11/17/2019 8:44 AM CDT Images from the original note were not included. Infectious Disease Progress Note Iris Gil Admit Date: 11/06/2019 4:27 PM 11/17/2019 Hospital Day: 12 Subjective: Afebrile. Comfortable on room air. Plan for PICC soon and SNF placement. Pt is asleep. Opens eyes to my voice then fell back to sleep. ROS: UTO ROS, asleep Allergies: Allergies Allergen Reactions ? ? Codeine Phosphate Nausea & Vomiting MEDICATIONS FOR CURRENT ENCOUNTER: Current Facility-Administered Medications Medication Dose Route Frequency Provider Last Rate Last Dose ??? acetaminophen (TYLENOL) tablet 650 mg 650 mg oral Q6H PRN Reji Whittaker MD 650 mg at 11/17/19 0012 ??? amLODIPine (NORVASC) tablet 10 mg 10 mg oral Daily Zack Johnson NP 10 mg at 11/17/19 0830 ??? aspirin tablet 325 mg 325 mg oral Daily Zack Johnson NP 325 mg at 11/17/19 08 ??? atorvastatin (LIPITOR) tablet 40 mg 40 mg oral Nightly Zack Johnson NP 40 mg at 11/16/192011 ??? cefTRIAXone (ROCEPHIN) 2,000 mg/20 mL in sterile water (premix) 2,000 mg 2,000 mg intravenous Q24H [facility] Markel Bourgeois MD 2,000 mg at 11/16/19 0812 ??? chlorthalidone tablet 25 mg 25 mg oral Daily Zack Johnson NP 25 mg at 11/17/19 08 ??? cloNIDine (CATAPRES) tablet 0.1 mg 0.1 mg oral Q6H PRN Reji Whittaker MD 0.1 mg at 11/10/19 165 ??? dextrose oral liquid liquid 15 g 15 g oral Q15 Min PRN Reji Whittaker MD Or ??? dextrose (D10W) 10% bolus 250 mL 250 mL intravenous Q15 Min PRN Reji Whittaker MD ??? docusate sodium (COLACE) capsule 100 mg 100 mg oral BID PRN Sina Schilling MD 100 mg at 11/15/192025 ??? enoxaparin (LOVENOX) syringe 40 mg 40 mg subcutaneous Daily-2100 Reji Whittaker MD 40 mg at 11/16/192011 ??? gabapentin (NEURONTIN) capsule 300 mg 300 mg oral TID Zack Johnson NP 300 mg at 11/17/19 0829 ??? glucagon injection 1 mg 1 mg intramuscular Q30 Min PRN Reji Whittaker MD ??? insulin glargine (LANTUS) injection 12 Units 12 Units subcutaneous QAM Nita Potter MD 12 Units at 11/17/1930 ??? insulin lispro (HumaLOG, ADMELOG) injection 1-5 Units 1-5 Units subcutaneous TID with meals Reji Whittaker MD 5 Units at 11/16/19 1716 ??? levothyroxine (SYNTHROID) tablet 50 mcg 50 mcg oral Daily - 06 Zack Johnson NP 50 mcg at11/17/19626 ??? metroNIDAZOLE (FLAGYL) tablet 500 mg 500 mg oral TID Markel Bourgeois MD 500 mg at 11/17/19829 ??? ondansetron ODT (ZOFRAN-ODT) disintegrating tablet 4 mg 4 mg oral Q6H PRN Sina Schilling MD Or ??? ondansetron (ZOFRAN) injection 4 mg 4 mg intravenous Q6H PRN Sina Schilling MD ??? pantoprazole DR (PROTONIX) extended release tablet 40 mg 40 mg oral Daily Zack Johnson PULLING UNIT OPERATOR 40 mg at 11/17/19829 ??? polyethylene glycol (MIRALAX) packet 17 g 17 g oral Daily Zack Johnson, PULLING UNIT OPERATOR 17 g at ??? sodium chloride 0.9% flush 0.5-20 mL 0.5-20 mL intra-catheter Q8H KAS[facility] Sina Schilling MD 10mL at 11/16/192011 ??? sodium chloride 0.9% flush 0.5-20 mL 0.5-20 mL intra-catheter PRN Sina Schilling MD Objective: Vitals: 11/16/19 1939 11/17/19 0007 11/17/19 0420 11/17/19 0749 BP: 116/53 131/51 124/62 108/55 BP Location: Right arm Left arm Left arm Left arm Patient Position: Lying Lying Lying Sitting Pulse: 66 76 66 63 Resp: Temp: 36.9 ??C (98.4 ??F) 36.9 ??C (98.4 ??F) 36.8 ??C (98.2 ??F) 36.3 ??C (97.3 ??F) TempSrc: Oral Oral Oral Temporal SpO2: 99% 97% 99% 95% Weight: Height: Temp (24hrs), Av.7 ??C (98 ??F), Min:36.3 ??C (97.3 ??F), Max:36.9 ??C (98.4 ??F) Height: 157.5 cm (5' 2.01 ) Weight: 82.6 kg (182 lb 3.2 oz) Intake/Output Summary (Last 24 hours) at 11/17/2019 08 Last data filed at 11/16/20192034 Gross per 24 hour Intake 360 ml Output 950 ml Net -590 ml Exam: General appearance: alert, cooperative, no distress HEENT: (-)icterus, Oropharnyx is dry Neck: No palpable LN Lungs: breath sounds normal and symmetric; minimal respiratory effort, no r/w/c Heart: regular rhythm, normal S1 and S2, no m/r/g Abdomen: soft without mass, non-tender, +bowel sounds, no HSM Skin: (-)new rashes, necrotic ulcerations bilaterally on heels. MSK: no gross deformities, FROM Vascular: no Edema, Neuro: No 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 Psych: Flat affect Lab: Reviewed. Recent Labs Lab Units 11/17/19 0631 11/17/19 0437 11/17/19 0419 11/16/19 0412 11/15/19 0416 SODIUM mmol/L -- 138 -- -- 138 -- 135 POTASSIUM PLASMA mmol/L -- 4.0 -- -- 3.4 -- 3.6 CHLORIDE mmol/L -- 96* -- -- 95* -- 93* CO2 mmol/L -- 30 -- -- 32 -- 30 ANIONGAP mmol/L -- 12 -- -- 11 -- 12 GLUCOSE mg/dL -- 109 -- -- 152 -- 296* POC GLUCOSE MONITOR mg/dL 105 -- 114 < > -- < > -- BUN SERUM mg/dL -- 29* -- -- 33* -- 28* CREATININE mg/dL -- 0.73 -- -- 0.71 -- 0.62 CALCIUM mg/dL -- 8.7 -- -- 8.7 -- 8.7 ALBUMIN g/dL -- 2.6* -- -- 2.7* -- 2.3* ALK PHOS Units/L -- 24* -- -- 38* -- 35* ALT Units/L -- 20 -- -- 25 -- 30 AST Units/L -- 20 -- -- 20 -- 25 BILIRUBIN TOTAL mg/dL -- 0.2 -- -- <0.2 -- 0.2 < > = values in this interval not displayed. Lab Results Component Value Date WBC 12.4 (H) 11/10/2019 HGB 7.9 (L) 11/10/2019 HCT 24.5 (L) 11/10/2019 MCV 90.4 11/10/2019 LABPLAT 365 11/10/2019 Cultures: 11/05 Blood cx: Proteus mirabilis 2/2, Morganella morganii 1/2 (S: CTX, cefepime, zosyn) 11/07 blood cx: neg 11/06 Urine cx: contaminated 11/08 left heel cx: Proteus mirabilis, morganella morganii, mixed microorganisms 11/08 right heel cx: Proteus mirabilis and mixed microorganisms 11/08 covid-19: positive Imagin/27 x-ray of the right foot: Positive calcaneal osteo 11/07 CT A/P w: Cardiomegaly and small pericardial effusion Very large well-circumscribed fluid collection associated with surgical samara in the ventral abdominal wall suggesting a large seroma Marked bladder wall thickening suspicious for either chronic inflammation and/or possible neoplasm Numerous possible lytic foci in the thoracic and lumbar vertebra as noted above recommend MR imaging with and without contrast if Possible 11/07 Arterial dopplers bl LE: There is severe arterial insufficiency in both lower extremities, primarily in an infrapopliteal location. Assessment: 1. Right heel ulcer the with osteo 2. Diabetes mellitus 3. Dementia 4. Leukocytosis 5. Gram-negative bacteremia 6. Left heel ulcer 7. Fluid collection with surgical samara in ventral abdominal wall ?seroma 8. Severe PVD 9. COVID-19 Plan: 1.Continue ceftriaxone 2 gm IV daily and Flagyl 500 mg PO TID for 6 weeks until 12/18/2019 if no further intervention 2. Pt to get MRI spine 3. Continue supportive care 4. Continue wound care as per surgery 5. Weekly labs, CBC with diff, CMP, faxed to [phone] 6. Follow up with Dr. Bourgeois in 2-3 weeks [phone] Oleksandr Ozuna NP [facility] Call [phone] 11/17/2019 8:44 AM Cosigned by Susan Valenzuela MD at 11/17/2019 2:42 PM CDT * Nita Potter MD - 11/16/2019 10:47 AM CDT Admit Date: 11/06/2019 4:27 PM Hospital Day: 11 Clinical Course Pt is admitted for wound check, work up c/w sepsis w gangrenous wound on bila heels and sacral Consultants input appreciated Called Son Braulio Turner at [phone] He would want another Son whose number he would get give consent for Transfusion 11/07/19 17:45 Spoke with Son Mr Alisson House [phone] He consents to having his mother transfused with PRBC I Discussed the indications,type and cross match and also checking for infections which include hepatitis and HIV amongst others in the donor blood 11/08/19 Transfused 1 unit PRBC Hgb is 8.1 11/09/19 Discussed with son Mr Alisson House and gave him an update Blood culture positive for gram negative bacilli Proteus and Morganella WBC reduced from 19.3 on 11/06/19 to 13 on 11/08/19 11/10/19 WBC is 12.4 To have Urology consult because of suspicion of malignancy also MRI Thoracic and Lumbar vertebrae Discussed extensively with son Mr rojas about the need for an MRI 11/11/19 Discussed with son Informed him about the Coronavirus test which was positive She does not have any oxygen requirements Not a candidate for Remdesivir presently MRI on hold 11/12/19 Comfortable Eating dinner,being fed IV Vanco and Zosyn DC To be on Ceftriaxone and Flagyl for 6 weeks 11/14/19 Needs Picc line for IV Ceftriaxone 2 grams daily through 12/18/19 and Flagyl 500mg TID To discuss with disease case manager if she would be accepted back in SNF 11/15. Stable per nurse report, Subjective: Denies obvious pain no cough or sob no n/v/d no new focal weakness, paresthesia Scheduled Meds amLODIPine, 10 mg, oral, Daily aspirin, 325 mg, oral, Daily atorvastatin, 40 mg, oral, Nightly cefTRIAXone, 2,000 mg, intravenous, Q24H KASIE chlorthalidone, 25 mg, oral, Daily enoxaparin, 40 mg, subcutaneous, Daily-2100 gabapentin, 300 mg, oral, TID insulin glargine, 15 Units, subcutaneous, QAM insulin lispro, 1-3 Units, subcutaneous, Nightly insulin lispro, 1-5 Units, subcutaneous, TID with meals levothyroxine, 50 mcg, oral, Daily - 0600 metroNIDAZOLE, 500 mg, oral, TID pantoprazole DR, 40 mg, oral, Daily polyethylene glycol, 17 g, oral, Daily sodium chloride 0.9%, 0.5-20 mL, intra-catheter, Q8H KASIE ??? acetaminophen ??? cloNIDine ??? dextrose OR dextrose ??? dextrose OR dextrose ??? docusate sodium ??? glucagon ??? glucagon ??? ondansetron ODT OR ondansetron ??? sodium chloride 0.9% Data Vitals: 11/15/19 2002 11/16/19 0004 11/16/19 0424 11/16/19 0730 BP: 119/56 125/56 130/57 119/62 BP Location: Left arm Patient Position: Lying Lying Lying Lying Pulse: 74 77 76 76 Resp: 18 18 17 18 Temp: 36.8 ??C (98.3 ??F) 37.6 ??C (99.6 ??F) 36.5 ??C (97.7 ??F) 36.8 ??C (98.2 ??F) TempSrc: Oral Oral Temporal SpO2: 95% 98% 95% 96% Weight: Height: @WTMULTIPLE@ Intake/Output Summary (Last 24 hours) at 11/16/2019 1047 Last data filed at 11/16/2019 0630 Gross per 24 hour Intake 470 ml Output 1375 ml Net -905 ml Exam Gen: no distress HEENT: NCAT, EOMI, No scleral icterus Chest: CTAB, no wheezes or rhonchi, no tachypnea Cv: RRR, no M/R/G Abd: soft, no tender, no distention with a soft mass in mid abd Ext: chronic change, rt foot dressed, sacral wound not exmained at this time, picture reviewed, Skin: no acute rash, wound as above Neuro: axa, proper for simple questions and commands Lab Data Reviewed. Recent Labs Lab Units 11/10/19 0528 WBC K/cumm 12.4* HEMOGLOBIN g/dL 7.9* HEMATOCRIT % 24.5* PLATELETS K/cumm 365 Recent Labs Lab Units 11/16/19 0631 11/16/19 0412 11/16/19 0318 11/15/19 0416 11/14/19 0408 SODIUM mmol/L -- 138 -- -- 135 -- 137 POTASSIUM PLASMA mmol/L -- 3.4 -- -- 3.6 -- 3.4 CHLORIDE mmol/L -- 95* -- -- 93* -- 95* CO2 mmol/L -- 32 -- -- 30 -- 30 ANIONGAP mmol/L -- 11 -- -- 12 -- 12 GLUCOSE mg/dL -- 152 -- -- 296* -- 170 POC GLUCOSE MONITOR mg/dL 173 -- 159 < > -- < > -- BUN SERUM mg/dL -- 33* -- -- 28* -- 18 CREATININE mg/dL -- 0.71 -- -- 0.62 -- 0.66 CALCIUM mg/dL -- 8.7 -- -- 8.7 -- 8.9 ALBUMIN g/dL -- 2.7* -- -- 2.3* -- 2.4* ALK PHOS Units/L -- 38* -- -- 35* -- 32* ALT Units/L -- 25 -- -- 30 -- 39 AST Units/L -- 20 -- -- 25 -- 48* BILIRUBIN TOTAL mg/dL -- <0.2 -- -- 0.2 -- 0.2 < > = values in this interval not displayed. Other Data Assessment and Plan Active Problems: Moderate malnutrition (CMS/HCC) Sepsis Proteus and Morganella Gangrenous wounds -??patient has gangrenous wounds to bilateral heels and sacral area -??has had numerous debridements at??[facility] -??last MRI 07/02/2019 did not show osteomyelitis;?? -??wound care consult -??GS consulted, wound debrided, rec diverting colostomy ?? Sepsis, due to wound infection -??initial lactate 2.3,??then 1.7 - improved ?? Abdominal distension -??patient has history with constipation -??abdominal x-ray results are negative -start on MiraLax and Colace - CT a/p 11/07 Very large well-circumscribed fluid collection associated with surgical samara in the ventral abdominal wall suggesting a large seroma ?? Hypertension -??continue amlodipine COVID 19 positive on 11/08, clinically stable, isolation per protocol Diabetes Mellitus Type 2 - Lantus and ssi, follow fs to adjust -Hgb A1c is 8.6 ?? PVD, ABIs11/07: severe arterial insufficiency in both lower extremities, surgeon follow ?? Hypothyroidism, levothyroxine ?? HLD, atorvastatin ?? DVT Prophylaxis: lovenox Disharge Plan: plan PICC placement on 11/17 and snf Nita Potter MD 11/16/2019 10:47 AM * Oleksandr Ozuna NP - 11/16/2019 8:39 AM CDT Images from the original note were not included. Infectious Disease Progress Note Iris Evans Ankur Admit Date: 11/06/2019 4:27 PM 11/16/2019 Hospital Day: 11 Subjective: Tm 99.6 F. Pt is asleep. Comfortable on room air. Dressing intact. ROS: Denies N/V/D/SOB/cough/rashes Allergies: Allergies Allergen Reactions ? ? Codeine Phosphate Nausea & Vomiting MEDICATIONS FOR CURRENT ENCOUNTER: Current Facility-Administered Medications Medication Dose Route Frequency Provider Last Rate Last Dose ??? acetaminophen (TYLENOL) tablet 650 mg 650 mg oral Q6H PRN Reji Radha Whittaker MD 650 mg at 11/15/19 1153 ??? amLODIPine (NORVASC) tablet 10 mg 10 mg oral Daily Lubasi Akombelwa, PULLING UNIT OPERATOR 10 mg at 11/16/19811 ??? aspirin tablet 325 mg 325 mg oral Daily Zack Johnson NP 325 mg at 11/16/19811 ??? atorvastatin (LIPITOR) tablet 40 mg 40 mg oral Nightly Zack Johnson NP 40 mg at 11/15/192025 ??? cefTRIAXone (ROCEPHIN) 2,000 mg/20 mL in sterile water (premix) 2,000 mg 2,000 mg intravenous Q24H [facility] Markel Bourgeois MD 2,000 mg at 11/16/19811 ??? chlorthalidone tablet 25 mg 25 mg oral Daily Zack Johnson NP 25 mg at 11/16/19811 ??? cloNIDine (CATAPRES) tablet 0.1 mg 0.1 mg oral Q6H PRN Reji Whittaker MD 0.1 mg at 11/10/191655 ??? dextrose oral liquid liquid 15 g 15 g oral Q15 Min PRN Zack Johnson NP Or ??? dextrose (D10W) 10% bolus 250 mL 250 mL intravenous Q15 Min PRN Zack Johnson NP ??? dextrose oral liquid liquid 15 g 15 g oral Q15 Min PRN Reji Whittaker MD Or ??? dextrose (D10W) 10% bolus 250 mL 250 mL intravenous Q15 Min PRN Reji Whittaker MD ??? docusate sodium (COLACE) capsule 100 mg 100 mg oral BID PRN Sina Schilling MD 100 mg at 11/15/192025 ??? enoxaparin (LOVENOX) syringe 40 mg 40 mg subcutaneous Daily-2100 Reji Whittaker MD 40 mg at 11/15/192025 ??? gabapentin (NEURONTIN) capsule 300 mg 300 mg oral TID Zack Johnson NP 300 mg at 11/16/19811 ??? glucagon injection 1 mg 1 mg intramuscular Q30 Min PRN Zack Johnson NP ??? glucagon injection 1 mg 1 mg intramuscular Q30 Min PRN Reji Whittaker MD ??? insulin glargine (LANTUS) injection 15 Units 15 Units subcutaneous QAM Zack Johnson NP 15 Units at 11/16/19812 ??? insulin lispro (HumaLOG, ADMELOG) injection 1-3 Units 1-3 Units subcutaneous Nightly Reji Whittaker MD 2 Units at 11/15/192026 ??? insulin lispro (HumaLOG, ADMELOG) injection 1-5 Units 1-5 Units subcutaneous TID with meals Reji Whittaker MD 1 Units at 11/16/19631 ??? levothyroxine (SYNTHROID) tablet 50 mcg 50 mcg oral Daily - 599 Zack Johnson NP 50 mcg at11/16/19631 ??? metroNIDAZOLE (FLAGYL) tablet 500 mg 500 mg oral TID Markel Bourgeois MD 500 mg at 11/16/19811 ??? ondansetron ODT (ZOFRAN-ODT) disintegrating tablet 4 mg 4 mg oral Q6H PRN Sina Schilling MD Or ??? ondansetron (ZOFRAN) injection 4 mg 4 mg intravenous Q6H PRN Sina Schilling MD ??? pantoprazole DR (PROTONIX) extended release tablet 40 mg 40 mg oral Daily Zack Johnson NP 40 mg at 11/16/19811 ??? polyethylene glycol (MIRALAX) packet 17 g 17 g oral Daily Zack Johnson NP 17 g at ??? sodium chloride 0.9% flush 0.5-20 mL 0.5-20 mL intra-catheter Q8H KASIE Sina Schilling MD 10mL at 11/16/19631 ??? sodium chloride 0.9% flush 0.5-20 mL 0.5-20 mL intra-catheter PRN Sina Schilling MD Objective: Vitals: 11/15/19 2002 11/16/19 0004 11/16/19 0424 11/16/19 0730 BP: 119/56 125/56 130/57 119/62 BP Location: Left arm Patient Position: Lying Lying Lying Lying Pulse: 74 77 76 76 Resp: 18 18 17 18 Temp: 36.8 ??C (98.3 ??F) 37.6 ??C (99.6 ??F) 36.5 ??C (97.7 ??F) 36.8 ??C (98.2 ??F) TempSrc: Oral Oral Temporal SpO2: 95% 98% 95% 96% Weight: Height: Temp (24hrs), Av.8 ??C (98.2 ??F), Min:36.4 ??C (97.5 ??F), Max:37.6 ??C (99.6 ??F) Height: 157.5 cm (5' 2.01 ) Weight: 82.6 kg (182 lb 3.2 oz) Intake/Output Summary (Last 24 hours) at 11/16/2019 0839 Last data filed at 11/16/2019 0630 Gross per 24 hour Intake 890 ml Output 1375 ml Net -485 ml Exam: General appearance: alert, cooperative, no distress HEENT: (-)icterus, Oropharnyx is dry Neck: No palpable LN Lungs: breath sounds normal and symmetric; minimal respiratory effort, no r/w/c Heart: regular rhythm, normal S1 and S2, no m/r/g Abdomen: soft without mass, non-tender, +bowel sounds, no HSM Skin: (-)new rashes, necrotic ulcerations bilaterally on heels. MSK: no gross deformities, FROM Vascular: no Edema, Neuro: No 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 Psych: Flat affect Lab: Reviewed. Recent Labs Lab Units 11/16/19 0631 11/16/19 0412 11/16/19 0318 11/15/19 0416 11/14/19 0408 SODIUM mmol/L -- 138 -- -- 135 -- 137 POTASSIUM PLASMA mmol/L -- 3.4 -- -- 3.6 -- 3.4 CHLORIDE mmol/L -- 95* -- -- 93* -- 95* CO2 mmol/L -- 32 -- -- 30 -- 30 ANIONGAP mmol/L -- 11 -- -- 12 -- 12 GLUCOSE mg/dL -- 152 -- -- 296* -- 170 POC GLUCOSE MONITOR mg/dL 173 -- 159 < > -- < > -- BUN SERUM mg/dL -- 33* -- -- 28* -- 18 CREATININE mg/dL -- 0.71 -- -- 0.62 -- 0.66 CALCIUM mg/dL -- 8.7 -- -- 8.7 -- 8.9 ALBUMIN g/dL -- 2.7* -- -- 2.3* -- 2.4* ALK PHOS Units/L -- 38* -- -- 35* -- 32* ALT Units/L -- 25 -- -- 30 -- 39 AST Units/L -- 20 -- -- 25 -- 48* BILIRUBIN TOTAL mg/dL -- <0.2 -- -- 0.2 -- 0.2 < > = values in this interval not displayed. Recent Labs Lab Units 11/10/19 0528 WBC K/cumm 12.4* HEMOGLOBIN g/dL 7.9* HEMATOCRIT % 24.5* PLATELETS K/cumm 365 Cultures: 11/05 Blood cx: Proteus mirabilis 2/2, Morganella morganii 1/2 (S: CTX, cefepime, zosyn) 11/07 blood cx: neg 11/06 Urine cx: contaminated 11/08 left heel cx: Proteus mirabilis, morganella morganii, mixed microorganisms 11/08 right heel cx: Proteus mirabilis and mixed microorganisms 11/08 covid-19: positive Imagin/27 x-ray of the right foot: Positive calcaneal osteo 11/07 CT A/P w: Cardiomegaly and small pericardial effusion Very large well-circumscribed fluid collection associated with surgical samara in the ventral abdominal wall suggesting a large seroma Marked bladder wall thickening suspicious for either chronic inflammation and/or possible neoplasm Numerous possible lytic foci in the thoracic and lumbar vertebra as noted above recommend MR imaging with and without contrast if Possible 11/07 Arterial dopplers bl LE: There is severe arterial insufficiency in both lower extremities, primarily in an infrapopliteal location. Assessment: 1. Right heel ulcer the with osteo 2. Diabetes mellitus 3. Dementia 4. Leukocytosis 5. Gram-negative bacteremia 6. Left heel ulcer 7. Fluid collection with surgical samara in ventral abdominal wall ?seroma 8. Severe PVD 9. COVID-19 Plan: 1.Continue ceftriaxone 2 gm IV daily and Flagyl 500 mg PO TID for 6 weeks until 12/18/2019 if no further intervention 2. Pt to get MRI spine 3. Continue supportive care 4. Continue wound care as per surgery 5. Weekly labs, CBC with diff, CMP, faxed to [phone] 6. Follow up with Dr. Bourgeois in 2-3 weeks [phone] Oleksandr Ozuna NP [place] [facility] Call [phone] 11/16/2019 8:39 AM Cosigned by Avtar Mcknight MD at 11/16/2019 4:30 PM CDT * Reji Whittaker MD - 11/15/2019 5:56 PM CDT General Medicine Daily Progress SUBJECTIVE: Chief complaint of Chronic Non healing wounds bilateral feet and stage 4 gluteal decubitus ulcers. Interval History: *Chart reviewed and pt examined Patient is a 64 y.o. female with a medical history of dementia, diabetes type 2, hyperlipidemia, hypothyroidism, neuropathy, PVD, hypertension and chronic wounds who presents from a correction for wound evaluation. Patient who is A&O x1 is unable to give any accurate history, all history obtained from chart review. Patient has wound to her buttocks and bilateral heels that are gangrenous and complains of bilateral leg pain. Also patient has had numerous admissions at [facility] for bacteremia requiring IV antibiotics and wound care. Evaluation in the ER shows Na 134, BUN 39, creatinine 1.07, glucose 210, AST 67, ALT 63, initial lactate 2.3, then 1.7, WBC 19.3 with left shift, hemoglobin 7.9, hematocrit 24.1, blood cultures were drawn and pending, urinalysis pending. KUB was done and results not final; x-rays of bilateral feet also have results pending. Patient remains afebrile but hypertensive. Patient was given IV fluid bolus, Zosyn, and started on vancomycin Patient will be admitted for further evaluation and treatment 11/07/19 Consultants input appreciated Called Son Braulio Turner at [phone] He would want another Son whose number he would get give consent for Transfusion 11/07/19 17:45 Spoke with Son Mr Alisson House [phone] He consents to having his mother transfused with PRBC I Discussed the indications,type and cross match and also checking for infections which include hepatitis and HIV amongst others in the donor blood 11/08/19 Transfused 1 unit PRBC Hgb is 8.1 11/09/19 Discussed with son Mr Alisson House and gave him an update Blood culture positive for gram negative bacilli Proteus and Morganella WBC reduced from 19.3 on 11/06/19 to 13 on 11/08/19 11/10/19 WBC is 12.4 To have Urology consult because of suspicion of malignancy also MRI Thoracic and Lumbar vertebrae Discussed extensively with son Mr rojas about the need for an MRI 11/11/19 Discussed with son Informed him about the Coronavirus test which was positive She does not have any oxygen requirements Not a candidate for Remdesivir presently MRI on hold 11/12/19 Comfortable Eating dinner,being fed IV Vanco and Zosyn DC To be on Ceftriaxone and Flagyl for 6 weeks 11/14/19 Needs Picc line for IV Ceftriaxone 2 grams daily through 12/18/19 and Flagyl 500mg TID To discuss with disease case manager if she would be accepted back in SNF 11/15/19 Needs PICC line and DME Review of Systems Constitutional: Positive for activity change. Unobtainable due to dementia OBJECTIVE: Vitals: 24hr Min/Max: Temp Min: 36.3 ??C (97.3 ??F) Max: 36.9 ??C (98.4 ??F) Pulse Min: 67 Max: 80 BP Min: 107/49 Max: 139/110 Resp Min: 18 Max: 19 SpO2 Min: 93 % Max: 99 % Most Recent : Vitals: 11/15/19 0438 11/15/19 0708 11/15/19 1057 11/15/19 1550 BP: 107/49 123/57 108/90 112/68 BP Location: Left arm Left arm Left arm Patient Position: Lying Lying Lying Lying Pulse: 76 80 78 75 Resp: 19 18 18 18 Temp: 36.3 ??C (97.3 ??F) 36.5 ??C (97.7 ??F) 36.6 ??C (97.8 ??F) 36.4 ??C (97.5 ??F) TempSrc: Oral Temporal Temporal Temporal SpO2: 93% 95% 99% 95% Weight: Height: I/O last 2 completed shifts: In: 480 [P.O.:480] Out: 900 [Urine:900] I/O this shift: In: 420 [P.O.:420] Out: - Physical Exam: Physical Exam Vitals signs and nursing note reviewed. Constitutional: Comments: Pleasant but confused HENT: Head: Normocephalic and atraumatic. Nose: Nose normal. Mouth/Throat: Mouth: Mucous membranes are moist. Eyes: Extraocular Movements: Extraocular movements intact. Conjunctiva/sclera: Conjunctivae normal. Pupils: Pupils are equal, round, and reactive to light. Neck: Musculoskeletal: Normal range of motion and neck supple. Cardiovascular: Rate and Rhythm: Normal rate and regular rhythm. Pulses: Normal pulses. Heart sounds: No murmur. Pulmonary: Effort: Pulmonary effort is normal. Breath sounds: Normal breath sounds. No wheezing. Abdominal: General: Bowel sounds are normal. There is distension. Palpations: Abdomen is soft. Hernia: A hernia is present. Comments: Ventral hernia at the region of the healed midline incision Skin: Comments: Bilateral stage 2 heel ulcers Stage 4 sacral decubitus ulcers Neurological: Mental Status: She is alert. Comments: Confused Psychiatric: Comments: Pleasant but confused Lab/Radiology/Diagnostic Review: Recent Results (from the past 24 hour(s)) POCT glucose Collection Time: 11/14/19 8:49 PM Result Value Ref Range Glucose, POC 160 70 - 199 mg/dL POCT glucose Collection Time: 11/15/19 2:24 AM Result Value Ref Range Glucose, POC 278 (H) 70 - 199 mg/dL Comprehensive metabolic panel Collection Time: 11/15/19 4:16 AM Result Value Ref Range Sodium 135 135 - 145 mmol/L Potassium, pl 3.6 3.3 - 4.9 mmol/L Chloride 93 (L) 97 - 110 mmol/L CO2 30 22 - 32 mmol/L Anion gap 12 2 - 15 mmol/L BUN 28 (H) 8 - 25 mg/dL Creatinine 0.62 0.60 - 1.10 mg/dL Glucose 296 (H) 70 - 199 mg/dL Calcium 8.7 8.5 - 10.3 mg/dL Bilirubin, total 0.2 0.1 - 1.2 mg/dL Protein, pl 6.9 6.5 - 8.5 g/dL Albumin 2.3 (L) 3.5 - 5.0 g/dL Alk phos 35 (L) 40 - 130 Units/L ALT 30 7 - 45 Units/L AST 25 10 - 45 Units/L eGFR Collection Time: 11/15/19 4:16 AM Result Value Ref Range GFR 95 mL/min/1.73 m2 POCT glucose Collection Time: 11/15/19 6:31 AM Result Value Ref Range Glucose, POC 314 (H) 70 - 199 mg/dL POCT glucose Collection Time: 11/15/19 11:58 AM Result Value Ref Range Glucose, POC 280 (H) 70 - 199 mg/dL POCT glucose Collection Time: 11/15/19 3:52 PM Result Value Ref Range Glucose, POC 186 70 - 199 mg/dL Xr Foot Left 3 Or More Views Result Date: 11/07/2019 Narrative: EXAMINATION: XR FOOT LEFT 3 OR MORE VIEWS HISTORY: The patient is a 64-year-old female who presents with pain in the left foot. TECHNIQUE: 3 views of the left foot with portable technique.FINDINGS: No fracture or dislocation is seen. Bony structures are normally mineralized. There is marked arterial calcification. Impression: No fracture or dislocation seen. Electronically signed by: Antonino Jane M.D. Xr Foot Right 3 Or More Views Result Date: 11/07/2019 Narrative: EXAMINATION: XR FOOT RIGHT 3 OR MORE VIEWS DATE: 11/06/2019 7:50 PM HISTORY: Pain. COMPARISON: None. FINDINGS: There is a large enthesophyte arising from the posterior superior aspect of the calcaneus. Linear lucency traversing the enthesophyte may represent an avulsion injury in the acute clinical setting. Soft tissue swelling is seen near the Achilles insertion on the large enthesophyte. The calcaneus demonstrates a heterogeneous appearance, which is suggestive of osteomyelitis given associated soft tissue swelling and apparent edema/cellulitis in the subcutaneous soft tissues. Atherosclerotic peripheral vascular disease is demonstrated. Significant degenerative changes in the fo refoot. Impression: 1. 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 2. Possible enthesophyte avulsion fracture/injury as detailed above. 3. Degenerative changes most significant in the forefoot. 4. Atherosclerotic peripheral vascular disease. Electronically signed by: Harlan Tomas II, D.O. Xr Abdomen Ap 1 Vw Result Date: 11/07/2019 Narrative: EXAMINATION: XR ABDOMEN AP 1 VIEW HISTORY: The patient is a 64-year-old female who presents with abdominal distention. TECHNIQUE: AP portable supine view of the abdomen. FINDINGS: Normal intestinal gas pattern. No dilated small or large bowel loops. Samara and clips are seen overlying the lower abdomen and pelvis from prior surgery. Impression: Normal gas pattern. Electronically signed by: Antonino Jane M.D. ASSESSMENT/PLAN: Active Problems: Moderate malnutrition (CMS/HCC) Sepsis Proteus and Morganella Gangrenous wounds - patient has gangrenous wounds to bilateral heels and sacral area - has had numerous debridements at [facility] - last MRI 07/02/2019 did not show osteomyelitis; may need repeat - - wound care consult - general surgery consult ?? Sepsis -may be secondary to wound infection - initial lactate 2.3, then 1.7 ?? Leukocytosis with left shift - patient has had multiple admissions for bacteremia - ID input appreciated ?? Abdominal distension - patient has history with constipation - abdominal x-ray results are negative -start on MiraLax and Colace ?? Hypertension - continue amlodipine ??COVID 19 positive On covid floor Diabetes Mellitus Type 2 -continue Lantus plus sliding scale insulin -Hgb A1c is 8.6 ?? PVD -ordered ABIs ?? Hypothyroidism -continue levothyroxine ?? Hyperlipidemia - continue atorvastatin ?? DVT prophylaxis on Lovenox and GI prophylaxis currently not indicated 1. Reji Whittaker MD * Shantelle Herrmann, RD - 11/15/2019 9:30 AM CDT Nutrition Assessment Pt meets criteria for moderate malnutrition due to decreased energy intake, weight loss and physical findings, reference ASPEN guidelines. RD plan: Continue Ensure High Protein TID and Emmanuel BID. Modifying diet order to consistent CHO 2000 KCAL. ASPEN/AND Malnutrition Screening ASPEN/AND Malnutrition Screening: Chronic illness or injury mild/moderate Chronic Illness/Injury Mild/Moderate Energy Intake: < 75% energy intake compared to estimated energy needs > (or equal to) 1 month Weight Loss: 10% in 6 months(Pt with 16% body Wt loss in 4 months) Body Fat: Mild/Moderate Muscle Mass: Mild/Moderate Patient Meets Criteria for Moderate Malnutrition: Yes Subcutaneous Fat Loss Orbital Region - Surrounding the Eye: Somewhat hollow look Upper Arm Region - Triceps/Biceps: Some depth pinch but not ample Muscle Loss Muslim Region - Temporalis Muscle: Can see/feel well-defined muscle Clavicle Bone Region - Pectoralis Major, Deltoid, Trapezius Muscles: (Pt laying down- unable to assess) Clavicle and Acromion Bone Region - Deltoid Muscle: Rounded, curves at arm/shoulder/neck Reason for Assessment: Follow Up Encounter Date: 11/15/19 9:33 AM Nutrition Assessment and Plan: Patient is a 64 y.o. female. Admit Dx: SEPSIS. Admitted on 11/06/2019, current LOS is 7 days. Pt with hx of T2DM, HTN, and dementia. Pt with improved intakes, averaging 76%. Will continue Ensure High Protein TID. + stage 3 PrU to sacrum and unstageable wounds to left ischium and bilateral heels. Will continue sending Emmanuel BID. Labs reviewed, Glucose >300. Will modify diet to consistent CHO 2000 KCAL to better manage blood sugars. +RLE, LLE no pitting edema. + constipation, last BM 11/09. + Miralax and Colace. New wt of 182 lbs. Will continue to follow for intake trends, supplement tolerance, wt changes, labs, and plan of care. Current diet order: Adult Diet Modified Consistency; Mechanical Soft; Send on Disposables Pt intake is adequate. PO intakes: bites 1x, 75% 2x, 100% 3x, averaging 76% Nutrition Diagnosis 1: Malnutrition - Moderate Related to: Chronic illness/injury Evidenced by: Weight loss, Subcutaneous fat loss, Muscle loss, Inadequate energy intake Interventions: Medical food supplement, [place] diet preferences within the limits of nutrition care order, Meals and snacks, Modify diet(Will continue Ensure High Protein TID. Modify diet to consistent CHO 2000 KCAL) Monitoring and Evaluation: Appetite, Blood glucoses, Discharge plans, PO intake, Plan of care, Labs, Food preferences, Supplement tolerance, Weight changes ?? Goals: Adequate nutrition to meet estimated needs by next assessment, Oral intake to meet 75% estimated nutritional needs by next assessment, Tolerance of medical food supplement by next assessment Nutrition Diagnosis 2: Increased nutrient needs (protein)Related to: WoundsEvidenced by: Physical finding Interventions: Medical food supplement(Continue Emmanuel BID) Monitoring and Evaluation: Appetite, Wound healing, Plan of care, PO intake, Labs, Food preferences, Discharge plans, Supplement tolerance Goals: Tolerance of medical food supplement by next assessment, Adequate nutrition to meet estimated needs by next assessment Estimated needs: ?? Total Kcal/kg Estimated Needs : 1818.19 based on Kcal/k. Type of Weight Used for Estimated Kcals: Current ?? Total Protein Estimated Needs (gm): 90.91 Protein Needs Based on g/k.1 Type of Weight Used for Estimated Protein : Current. ?? Total Fluid Estimated Needs: 1818.19 Fluid Needs Based on : 1 ml/kcal. Objective Anthropometrics Weight: 82.6 kg (182 lb 3.2 oz) Admission Weight : 82.6 kg Weight Change: 14.64 kg (32.28 lbs) IBW/kg (Calculated) : 49.9 kg Height: 157.5 cm (5' 2.01 ) Weight in (lb) to have BMI = 25: 136.4 BMI (Calculated): 33.3 BMI Classification: BMI 30.0 - 34.9 Obese Class I 3 Day I/O Summary 11/12 1899 - 11/14 0659 In: 480 [P.O.:480] Out: 2900 [Urine:2900] Temp: 36.5 ??C (97.7 ??F) Past Medical History: Diagnosis Date ??? Dementia (CMS/HCC) ??? Diabetes mellitus (CMS/HCC) ??? Hypertension Medications and Lab Review: Scheduled Meds: amLODIPine, 10 mg, oral, Daily aspirin, 325 mg, oral, Daily atorvastatin, 40 mg, oral, Nightly cefTRIAXone, 2,000 mg, intravenous, Q24H KASIE chlorthalidone, 25 mg, oral, Daily enoxaparin, 40 mg, subcutaneous, Daily-2100 gabapentin, 300 mg, oral, TID insulin glargine, 15 Units, subcutaneous, QAM insulin lispro, 1-3 Units, subcutaneous, Nightly insulin lispro, 1-5 Units, subcutaneous, TID with meals levothyroxine, 50 mcg, oral, Daily - 0600 metroNIDAZOLE, 500 mg, oral, TID pantoprazole DR, 40 mg, oral, Daily polyethylene glycol, 17 g, oral, Daily sodium chloride 0.9%, 0.5-20 mL, intra-catheter, Q8H KASIE Continuous Infusions: Sodium Date Value Ref Range Status 11/15/2019 135 135 - 145 mmol/L Final Potassium, pl Date Value Ref Range Status 11/15/2019 3.6 3.3 - 4.9 mmol/L Final BUN Date Value Ref Range Status 11/15/2019 28 (H) 8 - 25 mg/dL Final Creatinine Date Value Ref Range Status 11/15/2019 0.62 0.60 - 1.10 mg/dL Final Albumin Date Value Ref Range Status 11/15/2019 2.3 (L) 3.5 - 5.0 g/dL Final Calcium Date Value Ref Range Status 11/15/2019 8.7 8.5 - 10.3 mg/dL Final Lab Results Component Value Date HGBA1C 8.6 (H) 11/07/2019 Lab Results Component Value Date GLUCOSE 314 (H) 11/15/2019 GLUCOSE 296 (H) 11/15/2019 GLUCOSE 278 (H) 11/15/2019 GLUCOSE 160 11/14/2019 GLUCOSE 201 (H) 11/14/2019 GLUCOSE 306 (H) 11/14/2019 GLUCOSE 170 11/14/2019 GLUCOSE 158 11/13/2019 Nursing Assessment: Last BM Date: 11/10/19 Bowel Sounds (All Quadrants): Present Grayson Scale Score: 13 Skin Integrity: (pressure sore) Type of Wound (LDA): Pressure ulcer/Pressure Injury Pressure Ulcer/Pressure Injury 11/06/19 Transverse Sacrum-Pressure Ulcer Status: Unchanged Pressure Ulcer/Pressure Injury 11/07/19 Left Ischium-Pressure Ulcer Status: Unchanged Pressure Ulcer/Pressure Injury 11/07/19 Left;Right Heel-Pressure Ulcer Status: Evolving Diet Instructions Continue a mechanical soft diet and avoid restrictions to encourage intakes, but avoid sugary drinks like lemonade, regular soda, gatorade, and sweet tea. Recommend Ensure High Protein with all mealsand 2 packets of Emmanuel each day for optimal wound healing.Call [facility] Dietitian's office at [phone] for questions about your diet. Nutrition Follow-Up : 11/19/19 Shantelle Herrmann MS,RD,LD * Oleksandr Ozuna NP - 11/15/2019 9:21 AM CDT Images from the original note were not included. Infectious Disease Progress Note Iris Gil Admit Date: 11/06/2019 4:27 PM 11/15/2019 Hospital Day: 10 Subjective: Afebrile. Pt c/o pain to her leg. No issues overnight. Wants to know when lunch is coming. ROS: Denies N/V/D/SOB/cough/rashes Allergies: Allergies Allergen Reactions ? ? Codeine Phosphate Nausea & Vomiting MEDICATIONS FOR CURRENT ENCOUNTER: Current Facility-Administered Medications Medication Dose Route Frequency Provider Last Rate Last Dose ??? acetaminophen (TYLENOL) tablet 650 mg 650 mg oral Q6H PRN Reji Whittaker MD ??? amLODIPine (NORVASC) tablet 10 mg 10 mg oral Daily Zack Johnson NP 10 mg at 11/15/19 0852 ??? aspirin tablet 325 mg 325 mg oral Daily Zack Johnson NP 325 mg at 11/15/19 0853 ??? atorvastatin (LIPITOR) tablet 40 mg 40 mg oral Nightly Zack Johnson NP 40 mg at 11/14/192050 ??? cefTRIAXone (ROCEPHIN) 2,000 mg/20 mL in sterile water (premix) 2,000 mg 2,000 mg intravenous Q24H [facility] Markel Bourgeois MD 2,000 mg at 11/15/19 0853 ??? chlorthalidone tablet 25 mg 25 mg oral Daily Zack Johnson NP 25 mg at 11/15/19 0853 ??? cloNIDine (CATAPRES) tablet 0.1 mg 0.1 mg oral Q6H PRN Reji Whittaker MD 0.1 mg at 11/10/19 1656 ??? dextrose oral liquid liquid 15 g 15 g oral Q15 Min PRN Zack Johnson NP Or ??? dextrose (D10W) 10% bolus 250 mL 250 mL intravenous Q15 Min PRN Zack Johnson NP ??? dextrose oral liquid liquid 15 g 15 g oral Q15 Min PRN Reji Whittaker MD Or ??? dextrose (D10W) 10% bolus 250 mL 250 mL intravenous Q15 Min PRN Reji Whittaker MD ??? docusate sodium (COLACE) capsule 100 mg 100 mg oral BID PRN Sina Schilling MD ??? enoxaparin (LOVENOX) syringe 40 mg 40 mg subcutaneous Daily-2100 Reji Whittaker MD 40 mg at 11/14/192050 ??? gabapentin (NEURONTIN) capsule 300 mg 300 mg oral TID Zack Johnson NP 300 mg at 11/15/19 0852 ??? glucagon injection 1 mg 1 mg intramuscular Q30 Min PRN Zack Johnson NP ??? glucagon injection 1 mg 1 mg intramuscular Q30 Min PRN Reji Whittaker MD ??? insulin glargine (LANTUS) injection 15 Units 15 Units subcutaneous QAM Zack Johnson NP 15 Units at 11/15/19 0856 ??? insulin lispro (HumaLOG, ADMELOG) injection 1-3 Units 1-3 Units subcutaneous Nightly Reji Whittaker MD 2 Units at 11/13/199 ??? insulin lispro (HumaLOG, ADMELOG) injection 1-5 Units 1-5 Units subcutaneous TID with meals Reji Whittaker MD 5 Units at 11/15/19 0635 ??? levothyroxine (SYNTHROID) tablet 50 mcg 50 mcg oral Daily - 0600 Zack Johnson NP 50 mcg at11/15/19 0634 ??? metroNIDAZOLE (FLAGYL) tablet 500 mg 500 mg oral TID Markel Bourgeois MD 500 mg at 11/15/19 0853 ??? ondansetron ODT (ZOFRAN-ODT) disintegrating tablet 4 mg 4 mg oral Q6H PRN Sina Schilling MD Or ??? ondansetron (ZOFRAN) injection 4 mg 4 mg intravenous Q6H PRN Sina Schilling MD ??? pantoprazole DR (PROTONIX) extended release tablet 40 mg 40 mg oral Daily Zack Johnson, PULLING UNIT OPERATOR 40 mg at 11/15/19 0853 ??? polyethylene glycol (MIRALAX) packet 17 g 17 g oral Daily Zack Johnson, PULLING UNIT OPERATOR 17 g at 11/13/200851 ??? sodium chloride 0.9% flush 0.5-20 mL 0.5-20 mL intra-catheter Q8H [facility] Sina Schilling MD 10mL at 11/15/19 0634 ??? sodium chloride 0.9% flush 0.5-20 mL 0.5-20 mL intra-catheter PRN Sina Schilling MD Objective: Vitals: 11/14/19202911/15/19 0034 11/15/19 0438 11/15/19 0708 BP: 125/47 (!) 139/110 107/49 123/57 BP Location: Left arm Patient Position: Lying Lying Lying Lying Pulse: 67 76 76 80 Resp: 18 18 19 18 Temp: 36.8 ??C (98.2 ??F) 36.9 ??C (98.4 ??F) 36.3 ??C (97.3 ??F) 36.5 ??C (97.7 ??F) TempSrc: Oral Oral Oral Temporal SpO2: 98% 95% 93% 95% Weight: Height: Temp (24hrs), Av.6 ??C (97.8 ??F), Min:36.3 ??C (97.3 ??F), Max:36.9 ??C (98.4 ??F) Height: 157.5 cm (5' 2.01 ) Weight: 82.6 kg (182 lb 3.2 oz) Intake/Output Summary (Last 24 hours) at 11/15/2019 0921 Last data filed at 11/15/2019 0645 Gross per 24 hour Intake 480 ml Output 900 ml Net -420 ml Exam: General appearance: alert, cooperative, no distress HEENT: (-)icterus, Oropharnyx is dry Neck: No palpable LN Lungs: breath sounds normal and symmetric; minimal respiratory effort, no r/w/c Heart: regular rhythm, normal S1 and S2, no m/r/g Abdomen: soft without mass, non-tender, +bowel sounds, no HSM Skin: (-)new rashes, necrotic ulcerations bilaterally on heels. MSK: no gross deformities, FROM Vascular: no Edema, Neuro: No 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 Psych: Flat affect Lab: Reviewed. Recent Labs Lab Units 11/15/19 0631 11/15/19 0416 11/15/19 0224 11/14/19 0408 11/13/19 0424 SODIUM mmol/L -- 135 -- -- 137 -- 137 POTASSIUM PLASMA mmol/L -- 3.6 -- -- 3.4 -- 3.7 CHLORIDE mmol/L -- 93* -- -- 95* -- 96* CO2 mmol/L -- 30 -- -- 30 -- 31 ANIONGAP mmol/L -- 12 -- -- 12 -- 10 GLUCOSE mg/dL -- 296* -- -- 170 -- 158 POC GLUCOSE MONITOR mg/dL 314* -- 278* < > -- < > -- BUN SERUM mg/dL -- 28* -- -- 18 -- 17 CREATININE mg/dL -- 0.62 -- -- 0.66 -- 0.70 CALCIUM mg/dL -- 8.7 -- -- 8.9 -- 8.7 ALBUMIN g/dL -- 2.3* -- -- 2.4* -- 2.6* ALK PHOS Units/L -- 35* -- -- 32* -- 28* ALT Units/L -- 30 -- -- 39 -- 36 AST Units/L -- 25 -- -- 48* -- 36 BILIRUBIN TOTAL mg/dL -- 0.2 -- -- 0.2 -- 0.2 < > = values in this interval not displayed. Recent Labs Lab Units 11/10/19 0528 WBC K/cumm 12.4* HEMOGLOBIN g/dL 7.9* HEMATOCRIT % 24.5* PLATELETS K/cumm 365 Cultures: 11/05 Blood cx: Proteus mirabilis 2/2, Morganella morganii 1/2 (S: CTX, cefepime, zosyn) 11/07 blood cx: neg 11/06 Urine cx: contaminated 11/08 left heel cx: Proteus mirabilis, morganella morganii, mixed microorganisms 11/08 right heel cx: Proteus mirabilis and mixed microorganisms 11/08 covid-19: positive Imagin/27 x-ray of the right foot: Positive calcaneal osteo 11/07 CT A/P w: Cardiomegaly and small pericardial effusion Very large well-circumscribed fluid collection associated with surgical smaara in the ventral abdominal wall suggesting a large seroma Marked bladder wall thickening suspicious for either chronic inflammation and/or possible neoplasm Numerous possible lytic foci in the thoracic and lumbar vertebra as noted above recommend MR imaging with and without contrast if Possible 11/07 Arterial dopplers bl LE: There is severe arterial insufficiency in both lower extremities, primarily in an infrapopliteal location. Assessment: 1. Right heel ulcer the with osteo 2. Diabetes mellitus 3. Dementia 4. Leukocytosis 5. Gram-negative bacteremia 6. Left heel ulcer 7. Fluid collection with surgical samara in ventral abdominal wall ?seroma 8. Severe PVD 9. COVID-19 Plan: 1.Continue ceftriaxone 2 gm IV daily and Flagyl 500 mg PO TID for 6 weeks until 12/18/2019 if no further intervention 2. Pt to get MRI spine 3. Continue supportive care 4. Continue wound care as per surgery 5. Weekly labs, CBC with diff, CMP, faxed to [phone] 6. Follow up with Dr. Bourgeois in 2-3 weeks [phone] Oleksandr Ozuna NP [facility] Call [phone] 11/15/2019 9:21 AM Cosigned by Avtar Mcknight MD at 11/15/2019 9:14 PM CDT * Reji Whittaker MD - 11/14/2019 5:57 PM CDT General Medicine Daily Progress SUBJECTIVE: Chief complaint of Chronic Non healing wounds bilateral feet and stage 4 gluteal decubitus ulcers. Interval History: *Chart reviewed and pt examined Patient is a 64 y.o. female with a medical history of dementia, diabetes type 2, hyperlipidemia, hypothyroidism, neuropathy, PVD, hypertension and chronic wounds who presents from a correction for wound evaluation. Patient who is A&O x1 is unable to give any accurate history, all history obtained from chart review. Patient has wound to her buttocks and bilateral heels that are gangrenous and complains of bilateral leg pain. Also patient has had numerous admissions at [facility] for bacteremia requiring IV antibiotics and wound care. Evaluation in the ER shows Na 134, BUN 39, creatinine 1.07, glucose 210, AST 67, ALT 63, initial lactate 2.3, then 1.7, WBC 19.3 with left shift, hemoglobin 7.9, hematocrit 24.1, blood cultures were drawn and pending, urinalysis pending. KUB was done and results not final; x-rays of bilateral feet also have results pending. Patient remains afebrile but hypertensive. Patient was given IV fluid bolus, Zosyn, and started on vancomycin Patient will be admitted for further evaluation and treatment 11/07/19 Consultants input appreciated Called Son Braulio Turner at [phone] He would want another Son whose number he would get give consent for Transfusion 11/07/19 17:45 Spoke with Son Mr Alisson House [phone] He consents to having his mother transfused with PRBC I Discussed the indications,type and cross match and also checking for infections which include hepatitis and HIV amongst others in the donor blood 11/08/19 Transfused 1 unit PRBC Hgb is 8.1 11/09/19 Discussed with son Mr Alisson House and gave him an update Blood culture positive for gram negative bacilli Proteus and Morganella WBC reduced from 19.3 on 11/06/19 to 13 on 11/08/19 11/10/19 WBC is 12.4 To have Urology consult because of suspicion of malignancy also MRI Thoracic and Lumbar vertebrae Discussed extensively with son Mr rojas about the need for an MRI 11/11/19 Discussed with son Informed him about the Coronavirus test which was positive She does not have any oxygen requirements Not a candidate for Remdesivir presently MRI on hold 11/12/19 Comfortable Eating dinner,being fed IV Vanco and Zosyn DC To be on Ceftriaxone and Flagyl for 6 weeks 11/14/19 Needs Picc line for IV Ceftriaxone 2 grams daily through 10/7/20 and Flagyl 500mg TID To discuss with disease case manager if she would be accepted back in SNF Review of Systems Constitutional: Positive for activity change. Unobtainable due to dementia OBJECTIVE: Vitals: 24hr Min/Max: Temp Min: 36.4 ??C (97.5 ??F) Max: 37 ??C (98.6 ??F) Pulse Min: 64 Max: 74 BP Min: 117/52 Max: 157/59 Resp Min: 17 Max: 20 SpO2 Min: 96 % Max: 99 % Most Recent : Vitals: 11/14/19 0625 11/14/19 0802 11/14/19 1136 11/14/19 1522 BP: 117/52 119/58 119/59 BP Location: Right arm Left arm Left arm Patient Position: Lying Lying Lying Pulse: 66 67 Resp: 20 20 20 Temp: 37 ??C (98.6 ??F) 36.6 ??C (97.8 ??F) 36.4 ??C (97.5 ??F) TempSrc: Oral Axillary Oral SpO2: 99% 99% 96% Weight: 82.6 kg (182 lb 3.2 oz) Height: I/O last 2 completed shifts: In: 600 [P.O.:600] Out: 3000 [Urine:3000] I/O this shift: In: 360 [P.O.:360] Out: - Physical Exam: Physical Exam Vitals signs and nursing note reviewed. Constitutional: Comments: Pleasant but confused HENT: Head: Normocephalic and atraumatic. Nose: Nose normal. Mouth/Throat: Mouth: Mucous membranes are moist. Eyes: Extraocular Movements: Extraocular movements intact. Conjunctiva/sclera: Conjunctivae normal. Pupils: Pupils are equal, round, and reactive to light. Neck: Musculoskeletal: Normal range of motion and neck supple. Cardiovascular: Rate and Rhythm: Normal rate and regular rhythm. Pulses: Normal pulses. Heart sounds: No murmur. Pulmonary: Effort: Pulmonary effort is normal. Breath sounds: Normal breath sounds. No wheezing. Abdominal: General: Bowel sounds are normal. There is distension. Palpations: Abdomen is soft. Hernia: A hernia is present. Comments: Ventral hernia at the region of the healed midline incision Skin: Comments: Bilateral stage 2 heel ulcers Stage 4 sacral decubitus ulcers Neurological: Mental Status: She is alert. Comments: Confused Psychiatric: Comments: Pleasant but confused Lab/Radiology/Diagnostic Review: Recent Results (from the past 24 hour(s)) POCT glucose Collection Time: 11/13/19 8:59 PM Result Value Ref Range Glucose, POC 250 (H) 70 - 199 mg/dL POCT glucose Collection Time: 11/14/19 2:13 AM Result Value Ref Range Glucose, POC 198 70 - 199 mg/dL Comprehensive metabolic panel Collection Time: 11/14/19 4:08 AM Result Value Ref Range Sodium 137 135 - 145 mmol/L Potassium, pl 3.4 3.3 - 4.9 mmol/L Chloride 95 (L) 97 - 110 mmol/L CO2 30 22 - 32 mmol/L Anion gap 12 2 - 15 mmol/L BUN 18 8 - 25 mg/dL Creatinine 0.66 0.60 - 1.10 mg/dL Glucose 170 70 - 199 mg/dL Calcium 8.9 8.5 - 10.3 mg/dL Bilirubin, total 0.2 0.1 - 1.2 mg/dL Protein, pl 7.7 6.5 - 8.5 g/dL Albumin 2.4 (L) 3.5 - 5.0 g/dL Alk phos 32 (L) 40 - 130 Units/L ALT 39 7 - 45 Units/L AST 48 (H) 10 - 45 Units/L eGFR Collection Time: 11/14/19 4:08 AM Result Value Ref Range GFR 93 mL/min/1.73 m2 POCT glucose Collection Time: 11/14/19 6:34 AM Result Value Ref Range Glucose, POC 154 70 - 199 mg/dL POCT glucose Collection Time: 11/14/19 12:03 PM Result Value Ref Range Glucose, POC 306 (H) 70 - 199 mg/dL POCT glucose Collection Time: 11/14/19 4:42 PM Result Value Ref Range Glucose, POC 201 (H) 70 - 199 mg/dL Xr Foot Left 3 Or More Views Result Date: 11/07/2019 Narrative: EXAMINATION: XR FOOT LEFT 3 OR MORE VIEWS HISTORY: The patient is a 64-year-old female who presents with pain in the left foot. TECHNIQUE: 3 views of the left foot with portable technique.FINDINGS: No fracture or dislocation is seen. Bony structures are normally mineralized. There is marked arterial calcification. Impression: No fracture or dislocation seen. Electronically signed by: Antonino Jane M.D. Xr Foot Right 3 Or More Views Result Date: 11/07/2019 Narrative: EXAMINATION: XR FOOT RIGHT 3 OR MORE VIEWS DATE: 11/06/2019 7:50 PM HISTORY: Pain. COMPARISON: None. FINDINGS: There is a large enthesophyte arising from the posterior superior aspect of the calcaneus. Linear lucency traversing the enthesophyte may represent an avulsion injury in the acute clinical setting. Soft tissue swelling is seen near the Achilles insertion on the large enthesophyte. The calcaneus demonstrates a heterogeneous appearance, which is suggestive of osteomyelitis given associated soft tissue swelling and apparent edema/cellulitis in the subcutaneous soft tissues. Atherosclerotic peripheral vascular disease is demonstrated. Significant degenerative changes in the fo refoot. Impression: 1. 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 2. Possible enthesophyte avulsion fracture/injury as detailed above. 3. Degenerative changes most significant in the forefoot. 4. Atherosclerotic peripheral vascular disease. Electronically signed by: Harlan Tomas II, D.O. Xr Abdomen Ap 1 Vw Result Date: 11/07/2019 Narrative: EXAMINATION: XR ABDOMEN AP 1 VIEW HISTORY: The patient is a 64-year-old female who presents with abdominal distention. TECHNIQUE: AP portable supine view of the abdomen. FINDINGS: Normal intestinal gas pattern. No dilated small or large bowel loops. Wesley and clips are seen overlying the lower abdomen and pelvis from prior surgery. Impression: Normal gas pattern. Electronically signed by: Antonino Jane M.D. ASSESSMENT/PLAN: Active Problems: Moderate malnutrition (CMS/HCC) Sepsis Proteus and Morganella Gangrenous wounds - patient has gangrenous wounds to bilateral heels and sacral area - has had numerous debridements at [facility] - last MRI 07/02/2019 did not show osteomyelitis; may need repeat - - wound care consult - general surgery consult ?? Sepsis -may be secondary to wound infection - initial lactate 2.3, then 1.7 ?? Leukocytosis with left shift - patient has had multiple admissions for bacteremia - ID input appreciated ?? Abdominal distension - patient has history with constipation - abdominal x-ray results are negative -start on MiraLax and Colace ?? Hypertension - continue amlodipine ??COVID 19 positive On covid floor Diabetes Mellitus Type 2 -continue Lantus plus sliding scale insulin -Hgb A1c is 8.6 ?? PVD -ordered ABIs ?? Hypothyroidism -continue levothyroxine ?? Hyperlipidemia - continue atorvastatin ?? DVT prophylaxis on Lovenox and GI prophylaxis currently not indicated 1. Reji Whittaker MD * Oleksandr Ozuna NP - 11/14/2019 8:50 AM CDT Images from the original note were not included. Infectious Disease Progress Note Iris Gil Admit Date: 11/06/2019 4:27 PM 11/14/2019 Hospital Day: 9 Subjective: Afebrile. No new changes per RN. She is awake and alert. Denies pain. Dressing intact. Comfortable on room air. ROS: Denies N/V/D/SOB/cough/rashes Allergies: Allergies Allergen Reactions ? ? Codeine Phosphate Nausea & Vomiting MEDICATIONS FOR CURRENT ENCOUNTER: Current Facility-Administered Medications Medication Dose Route Frequency Provider Last Rate Last Dose ??? acetaminophen (TYLENOL) tablet 650 mg 650 mg oral Q6H PRN Reji Whittaker MD ??? amLODIPine (NORVASC) tablet 10 mg 10 mg oral Daily Zack Johnson PULLING UNIT OPERATOR 10 mg at 11/13/19755 ??? aspirin tablet 325 mg 325 mg oral Daily Zack Johnson NP 325 mg at 11/13/19755 ??? atorvastatin (LIPITOR) tablet 40 mg 40 mg oral Nightly Zack Johnson PULLING UNIT OPERATOR 40 mg at 11/13/192128 ??? cefTRIAXone (ROCEPHIN) 2,000 mg/20 mL in sterile water (premix) 2,000 mg 2,000 mg intravenous Q24H [facility] Markel Bourgeois MD 2,000 mg at 11/13/19755 ??? chlorthalidone tablet 25 mg 25 mg oral Daily Zack Johnson PULLING UNIT OPERATOR 25 mg at 11/13/19755 ??? cloNIDine (CATAPRES) tablet 0.1 mg 0.1 mg oral Q6H PRN Reji Whittaker MD 0.1 mg at 11/10/19 1656 ??? dextrose oral liquid liquid 15 g 15 g oral Q15 Min PRN Zack Johnson NP Or ??? dextrose (D10W) 10% bolus 250 mL 250 mL intravenous Q15 Min PRN Zack Johnson NP ??? dextrose oral liquid liquid 15 g 15 g oral Q15 Min PRN Reji Whittaker MD Or ??? dextrose (D10W) 10% bolus 250 mL 250 mL intravenous Q15 Min PRN Reji Whittaker MD ??? docusate sodium (COLACE) capsule 100 mg 100 mg oral BID PRN Sina Schilling MD ??? enoxaparin (LOVENOX) syringe 40 mg 40 mg subcutaneous Daily-2100 Reji Whittaker MD 40 mg at 11/13/192128 ??? gabapentin (NEURONTIN) capsule 300 mg 300 mg oral TID Zack Johnson NP 300 mg at 11/13/192128 ??? glucagon injection 1 mg 1 mg intramuscular Q30 Min PRN Zack Johnson NP ??? glucagon injection 1 mg 1 mg intramuscular Q30 Min PRN Reji Whittaker MD ??? insulin glargine (LANTUS) injection 15 Units 15 Units subcutaneous QAM Zack Johnson NP 15 Units at 11/13/19 0758 ??? insulin lispro (HumaLOG, ADMELOG) injection 1-3 Units 1-3 Units subcutaneous Nightly Reji Whittaker MD 2 Units at 11/13/192128 ??? insulin lispro (HumaLOG, ADMELOG) injection 1-5 Units 1-5 Units subcutaneous TID with meals Reji Whittaker MD 1 Units at 11/14/19 0646 ??? levothyroxine (SYNTHROID) tablet 50 mcg 50 mcg oral Daily - 0600 Zack Johnson NP 50 mcg at11/14/19 0640 ??? metroNIDAZOLE (FLAGYL) tablet 500 mg 500 mg oral TID Markel Bourgeois MD 500 mg at 11/13/192128 ??? ondansetron ODT (ZOFRAN-ODT) disintegrating tablet 4 mg 4 mg oral Q6H PRN Sina Schilling MD Or ??? ondansetron (ZOFRAN) injection 4 mg 4 mg intravenous Q6H PRN Sina Schilling MD ??? pantoprazole DR (PROTONIX) extended release tablet 40 mg 40 mg oral Daily Zack Loganmily, PULLING UNIT OPERATOR 40 mg at 11/13/19 0756 ??? polyethylene glycol (MIRALAX) packet 17 g 17 g oral Daily Zack Fabiendiegoeljuice, PULLING UNIT OPERATOR 17 g at 11/12/200656 ??? sodium chloride 0.9% flush 0.5-20 mL 0.5-20 mL intra-catheter Q8H [facility] Sina Schilling MD 10mL at 11/14/19 0641 ??? sodium chloride 0.9% flush 0.5-20 mL 0.5-20 mL intra-catheter PRN Sina Schilling MD Objective: Vitals: 11/14/19 0005 11/14/19 0536 11/14/19 0625 11/14/19 0802 BP: 157/59 138/50 117/52 BP Location: Right arm Patient Position: Lying Lying Lying Pulse: 74 72 Resp: Temp: 36.4 ??C (97.5 ??F) 36.4 ??C (97.5 ??F) 37 ??C (98.6 ??F) TempSrc: Oral SpO2: 96% 96% 99% Weight: 82.6 kg (182 lb 3.2 oz) Height: Temp (24hrs), Av.4 ??C (97.6 ??F), Min:36.2 ??C (97.1 ??F), Max:37 ??C (98.6 ??F) Height: 157.5 cm (5' 2.01 ) Weight: 82.6 kg (182 lb 3.2 oz) Intake/Output Summary (Last 24 hours) at 11/14/2019 0850 Last data filed at 11/14/2019 0625 Gross per 24 hour Intake 480 ml Output 3000 ml Net -2520 ml Exam: General appearance: alert, cooperative, no distress HEENT: (-)icterus, Oropharnyx is dry Neck: No palpable LN Lungs: breath sounds normal and symmetric; minimal respiratory effort, no r/w/c Heart: regular rhythm, normal S1 and S2, no m/r/g Abdomen: soft without mass, non-tender, +bowel sounds, no HSM Skin: (-)new rashes, necrotic ulcerations bilaterally on heels. MSK: no gross deformities, FROM Vascular: no Edema, Neuro: No 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 Psych: Flat affect Lab: Reviewed. Recent Labs Lab Units 11/14/19 0634 11/14/19 0408 11/14/19 0213 11/13/19 0424 11/12/19 0426 SODIUM mmol/L -- 137 -- -- 137 -- 137 POTASSIUM PLASMA mmol/L -- 3.4 -- -- 3.7 -- 3.9 CHLORIDE mmol/L -- 95* -- -- 96* -- 96* CO2 mmol/L -- 30 -- -- 31 -- 31 ANIONGAP mmol/L -- 12 -- -- 10 -- 10 GLUCOSE mg/dL -- 170 -- -- 158 -- 188 POC GLUCOSE MONITOR mg/dL 154 -- 198 < > -- < > -- BUN SERUM mg/dL -- 18 -- -- 17 -- 17 CREATININE mg/dL -- 0.66 -- -- 0.70 -- 0.73 CALCIUM mg/dL -- 8.9 -- -- 8.7 -- 8.5 ALBUMIN g/dL -- 2.4* -- -- 2.6* -- 2.5* ALK PHOS Units/L -- 32* -- -- 28* -- 29* ALT Units/L -- 39 -- -- 36 -- 47* AST Units/L -- 48* -- -- 36 -- 52* BILIRUBIN TOTAL mg/dL -- 0.2 -- -- 0.2 -- 0.3 < > = values in this interval not displayed. Recent Labs Lab Units 11/10/19 0528 11/08/19 0812 11/07/19 1124 WBC K/cumm 12.4* 13.0* 14.3* HEMOGLOBIN g/dL 7.9* 8.1* 6.7* HEMATOCRIT % 24.5* 25.2* 22.0* PLATELETS K/cumm 365 363 404* Cultures: 11/05 Blood cx: Proteus mirabilis 2/2, Morganella morganii 1/2 (S: CTX, cefepime, zosyn) 11/07 blood cx: neg 11/06 Urine cx: contaminated 11/08 left heel cx: Proteus mirabilis, morganella morganii, mixed microorganisms 11/08 right heel cx: Proteus mirabilis and mixed microorganisms 11/08 covid-19: positive Imagin/27 x-ray of the right foot: Positive calcaneal osteo 11/07 CT A/P w: Cardiomegaly and small pericardial effusion Very large well-circumscribed fluid collection associated with surgical samara in the ventral abdominal wall suggesting a large seroma Marked bladder wall thickening suspicious for either chronic inflammation and/or possible neoplasm Numerous possible lytic foci in the thoracic and lumbar vertebra as noted above recommend MR imaging with and without contrast if Possible 11/07 Arterial dopplers bl LE: There is severe arterial insufficiency in both lower extremities, primarily in an infrapopliteal location. Assessment: 1. Right heel ulcer the with osteo 2. Diabetes mellitus 3. Dementia 4. Leukocytosis 5. Gram-negative bacteremia 6. Left heel ulcer 7. Fluid collection with surgical samara in ventral abdominal wall ?seroma 8. Severe PVD 9. COVID-19 Plan: 1.Continue ceftriaxone 2 gm IV daily and Flagyl 500 mg PO TID for 6 weeks until 12/18/2019 if no further intervention 2. MRI spine pending 3. Continue supportive care 4. Continue wound care as per surgery 5. Weekly labs, CBC with diff, CMP, faxed to [phone] 6. Follow up with Dr. Bourgeois in 2-3 weeks [phone] Oleksandr Ozuna NP [facility] Call [phone] 11/14/2019 8:50 AM Cosigned by Avtar Mcknight MD at 11/14/2019 5:08 PM CDT * Lluvia Smith MD - 11/13/2019 12:14 PM CDT Images from the original note were not included. 1. Daily Progress Hospital day: Hospital Day: 8 Clinical Course: Multiple pressure ulcers SUBJECTIVE Interval History: Pt seen and examined. No acute events overnight. Patient is laying in bed, seem to be resting comfortably; on room air; no event overnight; no concerns from RN. amLODIPine, 10 mg, oral, Daily aspirin, 325 mg, oral, Daily atorvastatin, 40 mg, oral, Nightly cefTRIAXone, 2,000 mg, intravenous, Q24H [facility] chlorthalidone, 25 mg, oral, Daily enoxaparin, 40 mg, subcutaneous, Daily-2100 gabapentin, 300 mg, oral, TID insulin glargine, 15 Units, subcutaneous, QAM insulin lispro, 1-3 Units, subcutaneous, Nightly insulin lispro, 1-5 Units, subcutaneous, TID with meals levothyroxine, 50 mcg, oral, Daily - 0600 metroNIDAZOLE, 500 mg, oral, TID pantoprazole DR, 40 mg, oral, Daily polyethylene glycol, 17 g, oral, Daily sodium chloride 0.9%, 0.5-20 mL, intra-catheter, Q8H [facility] ??? acetaminophen, 650 mg ??? cloNIDine, 0.1 mg, 0.1 mg at 11/10/19 1656 ??? dextrose, 15 g OR dextrose, 250 mL ??? dextrose, 15 g OR dextrose, 250 mL ??? docusate sodium, 100 mg ??? glucagon, 1 mg ??? glucagon, 1 mg ??? ondansetron ODT, 4 mg OR ondansetron, 4 mg ??? sodium chloride 0.9%, 0.5-20 mL OBJECTIVE Vitals: Most Recent : Vitals: 11/12/19 1924 11/12/19 2346 11/13/19 0322 11/13/19 0734 BP: 146/66 141/61 155/51 142/56 BP Location: Right arm Right arm Right arm Right arm Patient Position: Lying Lying Lying Lying Pulse: 84 77 81 74 Resp: 14 16 16 15 Temp: 37 ??C (98.6 ??F) 37.1 ??C (98.7 ??F) 36.6 ??C (97.8 ??F) 36.5 ??C (97.7 ??F) TempSrc: Oral Temporal Temporal Temporal SpO2: 97% 95% 96% 91% Weight: Height: 24hr Min/Max: Temp Min: 36.5 ??C (97.7 ??F) Max: 37.1 ??C (98.7 ??F) Pulse Min: 74 Max: 84 BP Min: 132/49 Max: 155/51 Resp Min: 14 Max: 18 SpO2 Min: 91 % Max: 97 % Intake/Output Summary (Last 24 hours) at 11/13/2019 1214 Last data filed at 11/13/2019 1105 Gross per 24 hour Intake 360 ml Output 3350 ml Net -2990 ml Physical Exam Vitals signs reviewed. Constitutional: Appearance: Normal appearance. She is well-developed. HENT: Head: Normocephalic and atraumatic. Eyes: General: Right eye: No discharge. Left eye: No discharge. Neck: Musculoskeletal: Normal range of motion and neck supple. Cardiovascular: Rate and Rhythm: Normal rate and regular rhythm. Heart sounds: Normal heart sounds. Pulmonary: Effort: Pulmonary effort is normal. Breath sounds: Normal breath sounds. No wheezing or rales. Abdominal: General: Bowel sounds are normal. There is no distension. Palpations: Abdomen is soft. Tenderness: There is no abdominal tenderness. There is no guarding. Musculoskeletal: General: No tenderness. Skin: Comments: See pictures Neurological: Mental Status: She is alert. Mental status is at baseline. Comments: ? Nonverbal Not following commands Psychiatric: Comments: Flat affect Lab/Radiology/Diagnostic Review: Recent Results (from the past 48 hour(s)) POCT glucose Collection Time: 11/11/19 4:17 PM Result Value Ref Range Glucose, POC 237 (H) 70 - 199 mg/dL POCT glucose Collection Time: 11/11/19 8:43 PM Result Value Ref Range Glucose, POC 240 (H) 70 - 199 mg/dL POCT glucose Collection Time: 11/12/19 2:09 AM Result Value Ref Range Glucose, POC 170 70 - 199 mg/dL Comprehensive metabolic panel Collection Time: 11/12/19 4:26 AM Result Value Ref Range Sodium 137 135 - 145 mmol/L Potassium, pl 3.9 3.3 - 4.9 mmol/L Chloride 96 (L) 97 - 110 mmol/L CO2 31 22 - 32 mmol/L Anion gap 10 2 - 15 mmol/L BUN 17 8 - 25 mg/dL Creatinine 0.73 0.60 - 1.10 mg/dL Glucose 188 70 - 199 mg/dL Calcium 8.5 8.5 - 10.3 mg/dL Bilirubin, total 0.3 0.1 - 1.2 mg/dL Protein, pl 7.0 6.5 - 8.5 g/dL Albumin 2.5 (L) 3.5 - 5.0 g/dL Alk phos 29 (L) 40 - 130 Units/L ALT 47 (H) 7 - 45 Units/L AST 52 (H) 10 - 45 Units/L eGFR Collection Time: 11/12/19 4:26 AM Result Value Ref Range GFR 87 mL/min/1.73 m2 POCT glucose Collection Time: 11/12/19 6:30 AM Result Value Ref Range Glucose, POC 183 70 - 199 mg/dL POCT glucose Collection Time: 11/12/19 11:23 AM Result Value Ref Range Glucose, POC 228 (H) 70 - 199 mg/dL POCT glucose Collection Time: 11/12/19 4:50 PM Result Value Ref Range Glucose, POC 144 70 - 199 mg/dL POCT glucose Collection Time: 11/12/19 9:03 PM Result Value Ref Range Glucose, POC 259 (H) 70 - 199 mg/dL POCT glucose Collection Time: 11/13/19 2:50 AM Result Value Ref Range Glucose, POC 197 70 - 199 mg/dL Comprehensive metabolic panel Collection Time: 11/13/19 4:24 AM Result Value Ref Range Sodium 137 135 - 145 mmol/L Potassium, pl 3.7 3.3 - 4.9 mmol/L Chloride 96 (L) 97 - 110 mmol/L CO2 31 22 - 32 mmol/L Anion gap 10 2 - 15 mmol/L BUN 17 8 - 25 mg/dL Creatinine 0.70 0.60 - 1.10 mg/dL Glucose 158 70 - 199 mg/dL Calcium 8.7 8.5 - 10.3 mg/dL Bilirubin, total 0.2 0.1 - 1.2 mg/dL Protein, pl 7.3 6.5 - 8.5 g/dL Albumin 2.6 (L) 3.5 - 5.0 g/dL Alk phos 28 (L) 40 - 130 Units/L ALT 36 7 - 45 Units/L AST 36 10 - 45 Units/L eGFR Collection Time: 11/13/19 4:24 AM Result Value Ref Range GFR 92 mL/min/1.73 m2 POCT glucose Collection Time: 11/13/19 6:31 AM Result Value Ref Range Glucose, POC 156 70 - 199 mg/dL ASSESSMENT/PLAN 1. COVID-19 infection. Per note patient was not a candidate for remdesivir; the patient is on room air; 2. Bacteremia blood cultures were positive on 11/05; repeated blood culture on 11/07 were negative;from heel wounds 3. Dementia 4. Pressure ulcer/wound. Right heel ulcer with osteomyelitis; patient was on IV vancomycin Zosyn --> rocephin and flagyl GS was consulted, ? Waiting on family members for procedure? 5. T2 DM. A1c of 8.6; 6. Acute on chronic anemia. Hemoglobin 7.9 on 11/09; will obtain new lab; 7. Hypothyroidism. Will check thyroid function. 8. PVD. ZAYNAB on 11/08/2019 show severe arterial insufficiency in both lower extremities; primarily in in infrapopliteal location. 9. Hypertension. Blood pressure is well controlled; 10. Hyperlipidemia 11. Possible bladder tumor. Urology was consulted. Recommend follow-up outpatient for cystoscopy in2 weeks; Full Code Lluvia Smith MD 11/13/19 12:14 PM * Oleksandr Ozuna NP - 11/13/2019 9:37 AM CDT Images from the original note were not included. Infectious Disease Progress Note Iris Gil Admit Date: 11/06/2019 4:27 PM 11/13/2019 Hospital Day: 8 Subjective: Afebrile. Pt is asleep. Comfortable on room air. No new issues. ROS: UTO ROS, asleep Allergies: Allergies Allergen Reactions ? ? Codeine Phosphate Nausea & Vomiting MEDICATIONS FOR CURRENT ENCOUNTER: Current Facility-Administered Medications Medication Dose Route Frequency Provider Last Rate Last Dose ??? acetaminophen (TYLENOL) tablet 650 mg 650 mg oral Q6H PRN Reji Whittaker MD ??? amLODIPine (NORVASC) tablet 10 mg 10 mg oral Daily Zack Johnson NP 10 mg at 11/13/19755 ??? aspirin tablet 325 mg 325 mg oral Daily Zack Johnson NP 325 mg at 11/13/19755 ??? atorvastatin (LIPITOR) tablet 40 mg 40 mg oral Nightly Zack Johnson NP 40 mg at 11/12/192103 ??? cefTRIAXone (ROCEPHIN) 2,000 mg/20 mL in sterile water (premix) 2,000 mg 2,000 mg intravenous Q24H [facility] Markel Bourgeois MD 2,000 mg at 11/13/19755 ??? chlorthalidone tablet 25 mg 25 mg oral Daily Zack Johnson NP 25 mg at 11/13/19755 ??? cloNIDine (CATAPRES) tablet 0.1 mg 0.1 mg oral Q6H PRN Reji Whittaker MD 0.1 mg at 11/10/191655 ??? dextrose oral liquid liquid 15 g 15 g oral Q15 Min PRN Zack Johnson NP Or ??? dextrose (D10W) 10% bolus 250 mL 250 mL intravenous Q15 Min PRN Zack Johnson NP ??? dextrose oral liquid liquid 15 g 15 g oral Q15 Min PRN Reji Whittaker MD Or ??? dextrose (D10W) 10% bolus 250 mL 250 mL intravenous Q15 Min PRN Reji Whittaker MD ??? docusate sodium (COLACE) capsule 100 mg 100 mg oral BID PRN Sina Schilling MD ??? enoxaparin (LOVENOX) syringe 40 mg 40 mg subcutaneous Daily-2100 Reji Whittaker MD 40 mg at 11/12/192103 ??? gabapentin (NEURONTIN) capsule 300 mg 300 mg oral TID Zack Johnson NP 300 mg at 09/02/20 0756 ??? glucagon injection 1 mg 1 mg intramuscular Q30 Min PRN Zack Johnson NP ??? glucagon injection 1 mg 1 mg intramuscular Q30 Min PRN Reji Whittaker MD ??? insulin glargine (LANTUS) injection 15 Units 15 Units subcutaneous QAM Zack Johnson NP 15 Units at 11/13/19 0758 ??? insulin lispro (HumaLOG, ADMELOG) injection 1-3 Units 1-3 Units subcutaneous Nightly Reji Whittaker MD 3 Units at 11/12/19 2104 ??? insulin lispro (HumaLOG, ADMELOG) injection 1-5 Units 1-5 Units subcutaneous TID with meals Reji Whittaker MD 1 Units at 11/13/1933 ??? levothyroxine (SYNTHROID) tablet 50 mcg 50 mcg oral Daily - 0600 Zack Johnson NP 50 mcg at11/13/19 0633 ??? metroNIDAZOLE (FLAGYL) tablet 500 mg 500 mg oral TID Markel Bourgeois MD 500 mg at 11/13/19 0756 ??? ondansetron ODT (ZOFRAN-ODT) disintegrating tablet 4 mg 4 mg oral Q6H PRN Sina Schilling MD Or ??? ondansetron (ZOFRAN) injection 4 mg 4 mg intravenous Q6H PRN Sina Schilling MD ??? pantoprazole DR (PROTONIX) extended release tablet 40 mg 40 mg oral Daily Zack Johnson NP 40 mg at 11/13/19 0756 ??? polyethylene glycol (MIRALAX) packet 17 g 17 g oral Daily Zack Johnson NP 17 g at 11/12/200656 ??? sodium chloride 0.9% flush 0.5-20 mL 0.5-20 mL intra-catheter Q8H [facility] Sina Schilling MD 10mL at 11/13/19 0633 ??? sodium chloride 0.9% flush 0.5-20 mL 0.5-20 mL intra-catheter PRN Sina Schilling MD Objective: Vitals: 11/12/19 1924 11/12/19 2346 11/13/19 0322 11/13/19 0734 BP: 146/66 141/61 155/51 142/56 BP Location: Right arm Right arm Right arm Right arm Patient Position: Lying Lying Lying Lying Pulse: 84 77 81 74 Resp: 14 16 16 15 Temp: 37 ??C (98.6 ??F) 37.1 ??C (98.7 ??F) 36.6 ??C (97.8 ??F) 36.5 ??C (97.7 ??F) TempSrc: Oral Temporal Temporal Temporal SpO2: 97% 95% 96% 91% Weight: Height: Temp (24hrs), Av.8 ??C (98.3 ??F), Min:36.5 ??C (97.7 ??F), Max:37.2 ??C (98.9 ??F) Height: 157.5 cm (5' 2.01 ) Weight: 68 kg (149 lb 14.6 oz) Intake/Output Summary (Last 24 hours) at 11/13/2019 0937 Last data filed at 11/12/2019 2345 Gross per 24 hour Intake 240 ml Output 2350 ml Net -2110 ml Exam: General appearance: alert, cooperative, no distress HEENT: (-)icterus, Oropharnyx is dry Neck: No palpable LN Lungs: breath sounds normal and symmetric; minimal respiratory effort, no r/w/c Heart: regular rhythm, normal S1 and S2, no m/r/g Abdomen: soft without mass, non-tender, +bowel sounds, no HSM Skin: (-)new rashes, necrotic ulcerations bilaterally on heels. MSK: no gross deformities, FROM Vascular: no Edema, Neuro: No 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 Psych: Flat affect Lab: Reviewed. Recent Labs Lab Units 11/13/19 0631 11/13/19 0424 11/13/19 0250 11/12/19 0426 11/11/19 0442 SODIUM mmol/L -- 137 -- -- 137 -- 138 POTASSIUM PLASMA mmol/L -- 3.7 -- -- 3.9 -- 3.4 CHLORIDE mmol/L -- 96* -- -- 96* -- 96* CO2 mmol/L -- 31 -- -- 31 -- 31 ANIONGAP mmol/L -- 10 -- -- 10 -- 11 GLUCOSE mg/dL -- 158 -- -- 188 -- 138 POC GLUCOSE MONITOR mg/dL 156 -- 197 < > -- < > -- BUN SERUM mg/dL -- 17 -- -- 17 -- 20 CREATININE mg/dL -- 0.70 -- -- 0.73 -- 0.69 CALCIUM mg/dL -- 8.7 -- -- 8.5 -- 8.4* ALBUMIN g/dL -- 2.6* -- -- 2.5* -- 2.2* ALK PHOS Units/L -- 28* -- -- 29* -- 28* ALT Units/L -- 36 -- -- 47* -- 28 AST Units/L -- 36 -- -- 52* -- 25 BILIRUBIN TOTAL mg/dL -- 0.2 -- -- 0.3 -- 0.3 < > = values in this interval not displayed. Recent Labs Lab Units 11/10/19 0528 11/08/19 0812 11/07/19 1124 WBC K/cumm 12.4* 13.0* 14.3* HEMOGLOBIN g/dL 7.9* 8.1* 6.7* HEMATOCRIT % 24.5* 25.2* 22.0* PLATELETS K/cumm 365 363 404* Cultures: 11/05 Blood cx: Proteus mirabilis 2/2, Morganella morganii 1/2 (S: CTX, cefepime, zosyn) 11/07 blood cx: neg 11/06 Urine cx: contaminated 11/08 left heel cx: Proteus mirabilis and mixed microorganisms 11/08 right heel cx: Proteus mirabilis and mixed microorganisms 11/08 covid-19: positive Imagin/27 x-ray of the right foot: Positive calcaneal osteo 11/07 CT A/P w: Cardiomegaly and small pericardial effusion Very large well-circumscribed fluid collection associated with surgical samara in the ventral abdominal wall suggesting a large seroma Marked bladder wall thickening suspicious for either chronic inflammation and/or possible neoplasm Numerous possible lytic foci in the thoracic and lumbar vertebra as noted above recommend MR imaging with and without contrast if Possible 11/07 Arterial dopplers bl LE: There is severe arterial insufficiency in both lower extremities, primarily in an infrapopliteal location. Assessment: 1. Right heel ulcer the with osteo 2. Diabetes mellitus 3. Dementia 4. Leukocytosis 5. Gram-negative bacteremia 6. Left heel ulcer 7. Fluid collection with surgical samara in ventral abdominal wall ?seroma 8. Severe PVD 9. COVID-19 Plan: 1.Continue ceftriaxone and Flagyl for 6 weeks until 12/18/2019 if no further intervention 2. MRI spine pending 3. Continue supportive care 4. Continue wound care as per surgery 5. Weekly labs, CBC with diff, CMP, faxed to [phone] 6. Follow up with Dr. Bourgeois in 2-3 weeks [phone] Oleksandr Ozuna NP [place] [facility] Call [phone] 11/13/2019 9:37 AM Cosigned by Avtar Mcknight MD at 11/13/2019 11:46 PM CDT * Reji Whittaker MD - 11/12/2019 5:32 PM CDT General Medicine Daily Progress SUBJECTIVE: Chief complaint of Chronic Non healing wounds bilateral feet and stage 4 gluteal decubitus ulcers. Interval History: *Chart reviewed and pt examined Patient is a 64 y.o. female with a medical history of dementia, diabetes type 2, hyperlipidemia, hypothyroidism, neuropathy, PVD, hypertension and chronic wounds who presents from a correction for wound evaluation. Patient who is A&O x1 is unable to give any accurate history, all history obtained from chart review. Patient has wound to her buttocks and bilateral heels that are gangrenous and complains of bilateral leg pain. Also patient has had numerous admissions at [facility] for bacteremia requiring IV antibiotics and wound care. Evaluation in the ER shows Na 134, BUN 39, creatinine 1.07, glucose 210, AST 67, ALT 63, initial lactate 2.3, then 1.7, WBC 19.3 with left shift, hemoglobin 7.9, hematocrit 24.1, blood cultures were drawn and pending, urinalysis pending. KUB was done and results not final; x-rays of bilateral feet also have results pending. Patient remains afebrile but hypertensive. Patient was given IV fluid bolus, Zosyn, and started on vancomycin Patient will be admitted for further evaluation and treatment 11/07/19 Consultants input appreciated Called Son Braulio Turner at [phone] He would want another Son whose number he would get give consent for Transfusion 11/07/19 17:45 Spoke with Son Mr Alisson House [phone] He consents to having his mother transfused with PRBC I Discussed the indications,type and cross match and also checking for infections which include hepatitis and HIV amongst others in the donor blood 11/08/19 Transfused 1 unit PRBC Hgb is 8.1 11/09/19 Discussed with son Mr Alisson House and gave him an update Blood culture positive for gram negative bacilli Proteus and Morganella WBC reduced from 19.3 on 11/06/19 to 13 on 11/08/19 11/10/19 WBC is 12.4 To have Urology consult because of suspicion of malignancy also MRI Thoracic and Lumbar vertebrae Discussed extensively with son Mr rojas about the need for an MRI 11/11/19 Discussed with son Informed him about the Coronavirus test which was positive She does not have any oxygen requirements Not a candidate for Remdesivir presently MRI on hold 11/12/19 Comfortable Eating dinner,being fed IV Vanco and Zosyn DC To be on Ceftriaxone and Flagyl for 6 weeks Review of Systems Constitutional: Positive for activity change. Unobtainable due to dementia OBJECTIVE: Vitals: 24hr Min/Max: Temp Min: 36.4 ??C (97.5 ??F) Max: 37.2 ??C (99 ??F) Pulse Min: 65 Max: 76 BP Min: 111/78 Max: 146/51 Resp Min: 12 Max: 18 SpO2 Min: 92 % Max: 99 % Most Recent : Vitals: 11/12/19 0412 11/12/19 0736 11/12/19 1111 11/12/19 1557 BP: 123/45 146/51 (!) 123/40 132/49 BP Location: Left arm Right arm Right arm Right arm Patient Position: Lying Lying Lying Lying Pulse: 74 74 76 75 Resp: 12 18 18 18 Temp: 37.2 ??C (99 ??F) 36.4 ??C (97.5 ??F) 37.2 ??C (98.9 ??F) 36.6 ??C (97.8 ??F) TempSrc: Axillary Oral Temporal Temporal SpO2: 99% 97% 94% 93% Weight: Height: I/O last 2 completed shifts: In: 1731 [P.O.:880; I.V.:851] Out: 1500 [Urine:1500] I/O this shift: In: 560 [P.O.:560] Out: - Physical Exam: Physical Exam Vitals signs and nursing note reviewed. Constitutional: Comments: Pleasant but confused HENT: Head: Normocephalic and atraumatic. Nose: Nose normal. Mouth/Throat: Mouth: Mucous membranes are moist. Eyes: Extraocular Movements: Extraocular movements intact. Conjunctiva/sclera: Conjunctivae normal. Pupils: Pupils are equal, round, and reactive to light. Neck: Musculoskeletal: Normal range of motion and neck supple. Cardiovascular: Rate and Rhythm: Normal rate and regular rhythm. Pulses: Normal pulses. Heart sounds: No murmur. Pulmonary: Effort: Pulmonary effort is normal. Breath sounds: Normal breath sounds. No wheezing. Abdominal: General: Bowel sounds are normal. There is distension. Palpations: Abdomen is soft. Hernia: A hernia is present. Comments: Ventral hernia at the region of the healed midline incision Skin: Comments: Bilateral stage 2 heel ulcers Stage 4 sacral decubitus ulcers Neurological: Mental Status: She is alert. Comments: Confused Psychiatric: Comments: Pleasant but confused Lab/Radiology/Diagnostic Review: Recent Results (from the past 24 hour(s)) POCT glucose Collection Time: 11/11/19 8:43 PM Result Value Ref Range Glucose, POC 240 (H) 70 - 199 mg/dL POCT glucose Collection Time: 11/12/19 2:09 AM Result Value Ref Range Glucose, POC 170 70 - 199 mg/dL Comprehensive metabolic panel Collection Time: 11/12/19 4:26 AM Result Value Ref Range Sodium 137 135 - 145 mmol/L Potassium, pl 3.9 3.3 - 4.9 mmol/L Chloride 96 (L) 97 - 110 mmol/L CO2 31 22 - 32 mmol/L Anion gap 10 2 - 15 mmol/L BUN 17 8 - 25 mg/dL Creatinine 0.73 0.60 - 1.10 mg/dL Glucose 188 70 - 199 mg/dL Calcium 8.5 8.5 - 10.3 mg/dL Bilirubin, total 0.3 0.1 - 1.2 mg/dL Protein, pl 7.0 6.5 - 8.5 g/dL Albumin 2.5 (L) 3.5 - 5.0 g/dL Alk phos 29 (L) 40 - 130 Units/L ALT 47 (H) 7 - 45 Units/L AST 52 (H) 10 - 45 Units/L eGFR Collection Time: 11/12/19 4:26 AM Result Value Ref Range GFR 87 mL/min/1.73 m2 POCT glucose Collection Time: 11/12/19 6:30 AM Result Value Ref Range Glucose, POC 183 70 - 199 mg/dL POCT glucose Collection Time: 11/12/19 11:23 AM Result Value Ref Range Glucose, POC 228 (H) 70 - 199 mg/dL POCT glucose Collection Time: 11/12/19 4:50 PM Result Value Ref Range Glucose, POC 144 70 - 199 mg/dL Xr Foot Left 3 Or More Views Result Date: 11/07/2019 Narrative: EXAMINATION: XR FOOT LEFT 3 OR MORE VIEWS HISTORY: The patient is a 64-year-old female who presents with pain in the left foot. TECHNIQUE: 3 views of the left foot with portable technique.FINDINGS: No fracture or dislocation is seen. Bony structures are normally mineralized. There is marked arterial calcification. Impression: No fracture or dislocation seen. Electronically signed by: Antonino Jane M.D. Xr Foot Right 3 Or More Views Result Date: 11/07/2019 Narrative: EXAMINATION: XR FOOT RIGHT 3 OR MORE VIEWS DATE: 11/06/2019 7:50 PM HISTORY: Pain. COMPARISON: None. FINDINGS: There is a large enthesophyte arising from the posterior superior aspect of the calcaneus. Linear lucency traversing the enthesophyte may represent an avulsion injury in the acute clinical setting. Soft tissue swelling is seen near the Achilles insertion on the large enthesophyte. The calcaneus demonstrates a heterogeneous appearance, which is suggestive of osteomyelitis given associated soft tissue swelling and apparent edema/cellulitis in the subcutaneous soft tissues. Atherosclerotic peripheral vascular disease is demonstrated. Significant degenerative changes in the fo refoot. Impression: 1. 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 2. Possible enthesophyte avulsion fracture/injury as detailed above. 3. Degenerative changes most significant in the forefoot. 4. Atherosclerotic peripheral vascular disease. Electronically signed by: Harlan Tomas II, D.O. Xr Abdomen Ap 1 Vw Result Date: 11/07/2019 Narrative: EXAMINATION: XR ABDOMEN AP 1 VIEW HISTORY: The patient is a 64-year-old female who presents with abdominal distention. TECHNIQUE: AP portable supine view of the abdomen. FINDINGS: Normal intestinal gas pattern. No dilated small or large bowel loops. Wesley and clips are seen overlying the lower abdomen and pelvis from prior surgery. Impression: Normal gas pattern. Electronically signed by: Antonino Jane M.D. ASSESSMENT/PLAN: Active Problems: Moderate malnutrition (CMS/HCC) Sepsis Proteus and Morganella Gangrenous wounds - patient has gangrenous wounds to bilateral heels and sacral area - has had numerous debridements at [facility] - last MRI 07/02/2019 did not show osteomyelitis; may need repeat - - wound care consult - general surgery consult ?? Sepsis -may be secondary to wound infection - initial lactate 2.3, then 1.7 ?? Leukocytosis with left shift - patient has had multiple admissions for bacteremia - ID input appreciated ?? Abdominal distension - patient has history with constipation - abdominal x-ray results are negative -start on MiraLax and Colace ?? Hypertension - continue amlodipine ??COVID 19 positive On covid floor Diabetes Mellitus Type 2 -continue Lantus plus sliding scale insulin -Hgb A1c is 8.6 ?? PVD -ordered ABIs ?? Hypothyroidism -continue levothyroxine ?? Hyperlipidemia - continue atorvastatin ?? DVT prophylaxis on Lovenox and GI prophylaxis currently not indicated 1. Reji Whittaker MD * Joselin Heck LPN - 11/12/2019 11:42 AM CDT Images from the original note were not included. SWAT Assessment Impression: Pt at risk for skin breakdown d/t delayed wound healing, dm, and poor nutrition. Pt at this time with multiple pressure injuries that are chronic and poor healing. Pressure injury locations at this time are bilat heels and sacral area. Pt is current pt of Sarah. Pt wound dressing changes are done per MD orders. Plan: continue drg changes per Sarah orders. Continue preventative measures as set in place such as: waffle mattress, prevalon boots, q2hr turning with off loading, shift kaplan and mari care. Keep ptclean and dry, use of absorbant pads, dressing changes. Goal: wound management, pressure relief, moisture management * Markel Bourgeois MD - 11/12/2019 11:14 AM CDT Images from the original note were not included. Infectious Disease Progress Note Archanajohn Gil Admit Date: 11/06/2019 4:27 PM 11/12/2019 Hospital Day: 7 Subjective: No new changes. ROS: Denies N/V/D/SOB/cough/rashes Allergies: Allergies Allergen Reactions ? ? Codeine Phosphate Nausea & Vomiting MEDICATIONS FOR CURRENT ENCOUNTER: Current Facility-Administered Medications Medication Dose Route Frequency Provider Last Rate Last Dose ??? acetaminophen (TYLENOL) tablet 650 mg 650 mg oral Q6H PRN Reji Whittaker MD ??? amLODIPine (NORVASC) tablet 10 mg 10 mg oral Daily Zack Johnson NP 10 mg at 11/12/19 0849 ??? aspirin tablet 325 mg 325 mg oral Daily Zack Johnson NP 325 mg at 11/12/19 0849 ??? atorvastatin (LIPITOR) tablet 40 mg 40 mg oral Nightly Zack Johnson NP 40 mg at 11/11/19 2030 ??? chlorthalidone tablet 25 mg 25 mg oral Daily Zack Johnson NP 25 mg at 11/12/19 0849 ??? cloNIDine (CATAPRES) tablet 0.1 mg 0.1 mg oral Q6H PRN Reji Whittaker MD 0.1 mg at 11/10/19 1656 ??? dextrose oral liquid liquid 15 g 15 g oral Q15 Min PRN Zack Johnson NP Or ??? dextrose (D10W) 10% bolus 250 mL 250 mL intravenous Q15 Min PRN Zack Johnson NP ??? dextrose oral liquid liquid 15 g 15 g oral Q15 Min PRN Reji Whittaker MD Or ??? dextrose (D10W) 10% bolus 250 mL 250 mL intravenous Q15 Min PRN Reji Whittaker MD ??? docusate sodium (COLACE) capsule 100 mg 100 mg oral BID PRN Sina Schilling MD ??? enoxaparin (LOVENOX) syringe 40 mg 40 mg subcutaneous Daily-2100 Reji Whittaker MD 40 mg at 11/11/19 2030 ??? gabapentin (NEURONTIN) capsule 300 mg 300 mg oral TID Zack Johnson NP 300 mg at 11/12/19 0849 ??? glucagon injection 1 mg 1 mg intramuscular Q30 Min PRN Zack Johnson NP ??? glucagon injection 1 mg 1 mg intramuscular Q30 Min PRN Reji Whittaker MD ??? insulin glargine (LANTUS) injection 15 Units 15 Units subcutaneous QAM Zack Jhonson NP 15 Units at 11/12/19 0850 ??? insulin lispro (HumaLOG, ADMELOG) injection 1-3 Units 1-3 Units subcutaneous Nightly Reji Whittaker MD 2 Units at 11/11/192032 ??? insulin lispro (HumaLOG, ADMELOG) injection 1-5 Units 1-5 Units subcutaneous TID with meals Reji Whittaker MD 2 Units at 11/12/19 0625 ??? levothyroxine (SYNTHROID) tablet 50 mcg 50 mcg oral Daily - 0600 Zack Johnson NP 50 mcg at11/12/19 0621 ??? ondansetron ODT (ZOFRAN-ODT) disintegrating tablet 4 mg 4 mg oral Q6H PRN Sina Schilling MD Or ??? ondansetron (ZOFRAN) injection 4 mg 4 mg intravenous Q6H PRN Sina Schilling MD ??? pantoprazole DR (PROTONIX) extended release tablet 40 mg 40 mg oral Daily Zack Johnson, PULLING UNIT OPERATOR 40 mg at 11/12/19 0851 ??? piperacillin-tazobactam (ZOSYN) 3.375 g in sodium chloride 0.9% 100 mL IVPB 3.375 g [id number] [facility] Markel Bourgeois MD 200 mL/hr at 11/12/19 0849 3.375 g at 11/12/19 0849 ??? polyethylene glycol (MIRALAX) packet 17 g 17 g oral Daily Zack Johnson, PULLING UNIT OPERATOR 17 g at ??? sodium chloride 0.9% flush 0.5-20 mL 0.5-20 mL intra-catheter Q8H [facility] Sina Schilling MD 10mL at 11/12/19 0622 ??? sodium chloride 0.9% flush 0.5-20 mL 0.5-20 mL intra-catheter PRN Sina Schilling MD ??? vancomycin 1,000 mg/200 mL in dextrose 5% (premix) 1,000 mg 1,000 mg intravenous Q24H Zack Johnson, PULLING UNIT OPERATOR 1,000 mg at 11/12/19 0621 Objective: Vitals: 11/11/19 2330 11/12/19 0412 11/12/19 0736 11/12/19 1111 BP: 111/78 123/45 146/51 (!) 123/40 BP Location: Left arm Left arm Right arm Right arm Patient Position: Lying Lying Lying Lying Pulse: 75 74 74 76 Resp: 18 Temp: 37.2 ??C (99 ??F) 37.2 ??C (99 ??F) 36.4 ??C (97.5 ??F) 37.2 ??C (98.9 ??F) TempSrc: Oral Axillary Oral Temporal SpO2: 92% 99% 97% 94% Weight: Height: Temp (24hrs), Av.8 ??C (98.3 ??F), Min:36.4 ??C (97.5 ??F), Max:37.2 ??C (99 ??F) Height: 157.5 cm (5' 2.01 ) Weight: 68 kg (149 lb 14.6 oz) Intake/Output Summary (Last 24 hours) at 11/12/2019 1114 Last data filed at 11/12/2019 0735 Gross per 24 hour Intake 1951 ml Output 550 ml Net 1401 ml Exam: General appearance: alert, cooperative, no distress HEENT: (-)icterus, Oropharnyx is dry Neck: No palpable LN Lungs: breath sounds normal and symmetric; minimal respiratory effort, no r/w/c Heart: regular rhythm, normal S1 and S2, no m/r/g Abdomen: soft without mass, non-tender, +bowel sounds, no HSM Skin: (-)new rashes, necrotic ulcerations bilaterally on heels. MSK: no gross deformities, FROM Vascular: no Edema, Neuro: No 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 Psych: Flat affect Lab: Reviewed. Recent Labs Lab Units 11/12/19 0630 11/12/19 0426 11/12/19 0209 11/11/19 0442 11/10/19 0534 SODIUM mmol/L -- 137 -- -- 138 -- 140 POTASSIUM PLASMA mmol/L -- 3.9 -- -- 3.4 -- 3.5 CHLORIDE mmol/L -- 96* -- -- 96* -- 96* CO2 mmol/L -- 31 -- -- 31 -- 32 ANIONGAP mmol/L -- 10 -- -- 11 -- 12 GLUCOSE mg/dL -- 188 -- -- 138 -- 63* POC GLUCOSE MONITOR mg/dL 183 -- 170 < > -- < > -- BUN SERUM mg/dL -- 17 -- -- 20 -- 20 CREATININE mg/dL -- 0.73 -- -- 0.69 -- 0.65 CALCIUM mg/dL -- 8.5 -- -- 8.4* -- 8.6 ALBUMIN g/dL -- 2.5* -- -- 2.2* -- 2.6* ALK PHOS Units/L -- 29* -- -- 28* -- 30* ALT Units/L -- 47* -- -- 28 -- 38 AST Units/L -- 52* -- -- 25 -- 40 BILIRUBIN TOTAL mg/dL -- 0.3 -- -- 0.3 -- 0.3 < > = values in this interval not displayed. Recent Labs Lab Units 11/10/19 0528 11/08/19 0812 11/07/19 1124 WBC K/cumm 12.4* 13.0* 14.3* HEMOGLOBIN g/dL 7.9* 8.1* 6.7* HEMATOCRIT % 24.5* 25.2* 22.0* PLATELETS K/cumm 365 363 404* Cultures: 11/05 Blood cx: Proteus mirabilis (S pending)03/14, Morganella morganii 03/14 (S: CTX, cefepime, zosyn) 11/07 blood cx: ngtd 11/06 Urine cx: pending 11/08 left heel culture with Proteus mirabilis and mixed microorganisms 11/08 right heel culture with Proteus mirabilis and mixed microorganisms Imagin/27 x-ray of the right foot: Positive calcaneal osteo 11/07 CT A/P w: Cardiomegaly and small pericardial effusion Very large well-circumscribed fluid collection associated with surgical samara in the ventral abdominal wall suggesting a large seroma Marked bladder wall thickening suspicious for either chronic inflammation and/or possible neoplasm Numerous possible lytic foci in the thoracic and lumbar vertebra as noted above recommend MR imaging with and without contrast if Possible 11/07 Arterial dopplers bl LE: There is severe arterial insufficiency in both lower extremities, primarily in an infrapopliteal location. Assessment: 1. Right heel ulcer the with osteo 2. Diabetes mellitus 3. Dementia 4. Leukocytosis 5. Gram-negative bacteremia 6. Left heel ulcer 7. Fluid collection with surgical samara in ventral abdominal wall ?seroma 8. Severe PVD 9. COVID-19 Plan: 1. DC IV vanc and Zosyn. And start the patient on ceftriaxone plus Flagyl for 6 weeks 2.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 antibiotics and wound care. Evaluation in the ER shows Na 134, BUN 39, creatinine 1.07, glucose 210, AST 67, ALT 63, initial lactate 2.3, then 1.7, WBC 19.3 with left shift, hemoglobin 7.9, hematocrit 24.1, blood cultures were drawn and pending, urinalysis pending. KUB was done and results not final; x-rays of bilateral feet also have results pending. Patient remains afebrile but hypertensive. Patient was given IV fluid bolus, Zosyn, and started on vancomycin Patient will be admitted for further evaluation and treatment 11/07/19 Consultants input appreciated Called Son Braulio Turner at [phone] He would want another Son whose number he would get give consent for Transfusion 11/07/19 17:45 Spoke with Son Mr Alisson House [phone] He consents to having his mother transfused with PRBC I Discussed the indications,type and cross match and also checking for infections which include hepatitis and HIV amongst others in the donor blood 11/08/19 Transfused 1 unit PRBC Hgb is 8.1 11/09/19 Discussed with son Mr Alisson House and gave him an update Blood culture positive for gram negative bacilli Proteus and Morganella WBC reduced from 19.3 on 11/06/19 to 13 on 11/08/19 11/10/19 WBC is 12.4 To have Urology consult because of suspicion of malignancy also MRI Thoracic and Lumbar vertebrae Discussed extensively with son Mr rojas about the need for an MRI Review of Systems Constitutional: Positive for activity change. Unobtainable due to dementia OBJECTIVE: Vitals: 24hr Min/Max: Temp Min: 36.5 ??C (97.7 ??F) Max: 37 ??C (98.6 ??F) Pulse Min: 69 Max: 86 BP Min: 112/71 Max: 158/79 Resp Min: 12 Max: 18 SpO2 Min: 97 % Max: 100 % Most Recent : Vitals: 11/10/19 0003 11/10/19 0413 11/10/19 0804 11/10/19 1137 BP: 136/67 112/71 142/92 115/78 BP Location: Left arm Left arm Right arm Right arm Patient Position: Lying Lying Lying Lying Pulse: 86 81 81 69 Resp: 18 18 14 14 Temp: 36.7 ??C (98 ??F) 36.5 ??C (97.7 ??F) 36.6 ??C (97.8 ??F) 36.5 ??C (97.7 ??F) TempSrc: Temporal Temporal Temporal Temporal SpO2: 99% 97% 97% 97% Weight: Height: I/O last 2 completed shifts: In: 120 [P.O.:120] Out: 550 [Urine:550] No intake/output data recorded. Physical Exam: Physical Exam Vitals signs and nursing note reviewed. Constitutional: Comments: Pleasant but confused HENT: Head: Normocephalic and atraumatic. Nose: Nose normal. Mouth/Throat: Mouth: Mucous membranes are moist. Eyes: Extraocular Movements: Extraocular movements intact. Conjunctiva/sclera: Conjunctivae normal. Pupils: Pupils are equal, round, and reactive to light. Neck: Musculoskeletal: Normal range of motion and neck supple. Cardiovascular: Rate and Rhythm: Normal rate and regular rhythm. Pulses: Normal pulses. Heart sounds: No murmur. Pulmonary: Effort: Pulmonary effort is normal. Breath sounds: Normal breath sounds. No wheezing. Abdominal: General: Bowel sounds are normal. There is distension. Palpations: Abdomen is soft. Hernia: A hernia is present. Comments: Ventral hernia at the region of the healed midline incision Skin: Comments: Bilateral stage 2 heel ulcers Stage 4 sacral decubitus ulcers Neurological: Mental Status: She is alert. Comments: Confused Psychiatric: Comments: Pleasant but confused Lab/Radiology/Diagnostic Review: Recent Results (from the past 24 hour(s)) Aerobic and anaerobic culture and gram stain Wound Heel, left Collection Time: 11/09/19 6:15 PM Specimen: Heel, left; Wound Result Value Ref Range Direct Specimen Exam Stain: Few polymorphonuclear leukocytes seen. No organisms seen. Report Preliminary Report: Culture results pending. Aerobic and anaerobic culture and gram stain Wound Heel, right Collection Time: 11/09/19 6:15 PM Specimen: Heel, right; Wound Result Value Ref Range Direct Specimen Exam Stain: Few polymorphonuclear leukocytes seen. Moderate Gram Positive Cocci Few Gram Negative Bacilli Report Preliminary Report: Culture results pending. (.) POCT glucose Collection Time: 11/09/19 6:17 PM Result Value Ref Range Glucose, POC 297 (H) 70 - 199 mg/dL POCT glucose Collection Time: 11/09/19 8:36 PM Result Value Ref Range Glucose, POC 359 (H) 70 - 199 mg/dL POCT glucose Collection Time: 11/10/19 2:19 AM Result Value Ref Range Glucose, POC 264 (H) 70 - 199 mg/dL CBC with auto differential Collection Time: 11/10/19 5:28 AM Result Value Ref Range WBC 12.4 (H) 3.8 - 9.9 K/cumm Hgb 7.9 (L) 11.9 - 15.5 g/dL Hct 24.5 (L) 35.6 - 45.5 % Plt 365 150 - 400 K/cumm MPV 8.9 (L) 9.1 - 12.3 fL RBC 2.71 (L) 3.90 - 5.20 M/cumm MCV 90.4 81.3 - 96.4 fL MCH 29.2 27.1 - 33.3 pg MCHC 32.2 (L) 32.3 - 35.7 g/dL RDW CV 14.6 11.1 - 14.9 % RDW SD 48.2 (H) 35.7 - 48.1 fL NRBC abs 0.00 0.00 - 0.01 K/cumm Vancomycin, trough Draw trough 30 minutes prior to 4th dose. Collection Time: 11/10/19 5:28 AM Result Value Ref Range Vancomycin, trough 13.0 10.0 - 20.0 mcg/mL Differential, auto Collection Time: 11/10/19 5:28 AM Result Value Ref Range Neutrophil abs 10.1 (H) 1.7 - 6.5 K/cumm Imm gran abs 0.1 0.0 - 0.1 K/cumm Lymphocyte abs 1.4 0.8 - 3.3 K/cumm Monocyte abs 0.6 0.2 - 0.8 K/cumm Eosinophil abs 0.1 0.0 - 0.5 K/cumm Basophil abs 0.1 0.0 - 0.1 K/cumm Neutrophil pct 81.6 % Imm gran pct 0.5 % Lymphocyte pct 11.5 % Monocyte pct 5.1 % Eosinophil pct 0.7 % Basophil pct 0.6 % Comprehensive metabolic panel Collection Time: 11/10/19 5:34 AM Result Value Ref Range Sodium 140 135 - 145 mmol/L Potassium, pl 3.5 3.3 - 4.9 mmol/L Chloride 96 (L) 97 - 110 mmol/L CO2 32 22 - 32 mmol/L Anion gap 12 2 - 15 mmol/L BUN 20 8 - 25 mg/dL Creatinine 0.65 0.60 - 1.10 mg/dL Glucose 63 (L) 70 - 199 mg/dL Calcium 8.6 8.5 - 10.3 mg/dL Bilirubin, total 0.3 0.1 - 1.2 mg/dL Protein, pl 7.2 6.5 - 8.5 g/dL Albumin 2.6 (L) 3.5 - 5.0 g/dL Alk phos 30 (L) 40 - 130 Units/L ALT 38 7 - 45 Units/L AST 40 10 - 45 Units/L eGFR Collection Time: 11/10/19 5:34 AM Result Value Ref Range GFR 94 mL/min/1.73 m2 POCT glucose Collection Time: 11/10/19 7:16 AM Result Value Ref Range Glucose, POC 90 70 - 199 mg/dL POCT glucose Collection Time: 11/10/19 11:56 AM Result Value Ref Range Glucose, POC 134 70 - 199 mg/dL Xr Foot Left 3 Or More Views Result Date: 11/07/2019 Narrative: EXAMINATION: XR FOOT LEFT 3 OR MORE VIEWS HISTORY: The patient is a 64-year-old female who presents with pain in the left foot. TECHNIQUE: 3 views of the left foot with portable technique.FINDINGS: No fracture or dislocation is seen. Bony structures are normally mineralized. There is marked arterial calcification. Impression: No fracture or dislocation seen. Electronically signed by: Antonino Vas, M.D. Xr Foot Right 3 Or More Views Result Date: 11/07/2019 Narrative: EXAMINATION: XR FOOT RIGHT 3 OR MORE VIEWS DATE: 11/06/2019 7:50 PM HISTORY: Pain. COMPARISON: None. FINDINGS: There is a large enthesophyte arising from the posterior superior aspect of the calcaneus. Linear lucency traversing the enthesophyte may represent an avulsion injury in the acute clinical setting. Soft tissue swelling is seen near the Achilles insertion on the large enthesophyte. The calcaneus demonstrates a heterogeneous appearance, which is suggestive of osteomyelitis given associated soft tissue swelling and apparent edema/cellulitis in the subcutaneous soft tissues. Atherosclerotic peripheral vascular disease is demonstrated. Significant degenerative changes in the fo refoot. Impression: 1. 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 2. Possible enthesophyte avulsion fracture/injury as detailed above. 3. Degenerative changes most significant in the forefoot. 4. Atherosclerotic peripheral vascular disease. Electronically signed by: Harlan Tomas II, D.O. Xr Abdomen Ap 1 Vw Result Date: 11/07/2019 Narrative: EXAMINATION: XR ABDOMEN AP 1 VIEW HISTORY: The patient is a 64-year-old female who presents with abdominal distention. TECHNIQUE: AP portable supine view of the abdomen. FINDINGS: Normal intestinal gas pattern. No dilated small or large bowel loops. Wesley and clips are seen overlying the lower abdomen and pelvis from prior surgery. Impression: Normal gas pattern. Electronically signed by: Antonino Jane M.D. ASSESSMENT/PLAN: Active Problems: Moderate malnutrition (CMS/HCC) Sepsis Proteus and Morganella Gangrenous wounds - patient has gangrenous wounds to bilateral heels and sacral area - has had numerous debridements at [facility] - last MRI 07/02/2019 did not show osteomyelitis; may need repeat - - wound care consult - general surgery consult ?? Sepsis -may be secondary to wound infection - initial lactate 2.3, then 1.7 - Zosyn and Vancomycin ?? Leukocytosis with left shift - patient has had multiple admissions for bacteremia - will continue Zosyn andvancomycin - blood cultures pending ID input appreciated ?? Abdominal distension - patient has history with constipation - abdominal x-ray results are negative -start on MiraLax and Colace ?? Hypertension - continue amlodipine ?? Diabetes Mellitus Type 2 -continue Lantus plus sliding scale insulin -Hgb A1c is 8.6 ?? PVD -ordered ABIs ?? Hypothyroidism -continue levothyroxine ?? Hyperlipidemia - continue atorvastatin ?? DVT prophylaxis on Lovenox and GI prophylaxis currently not indicated 1. Reji Whittaker MD * Markel Bourgeois MD - 11/10/2019 10:15 AM CDT Images from the original note were not included. Infectious Disease Progress Note Iris Evans Ankur Admit Date: 11/06/2019 4:27 PM 11/10/2019 Hospital Day: 5 Subjective: No new changes. ROS: Denies N/V/D/SOB/cough/rashes Allergies: Allergies Allergen Reactions ? ? Codeine Phosphate Nausea & Vomiting MEDICATIONS FOR CURRENT ENCOUNTER: Current Facility-Administered Medications Medication Dose Route Frequency Provider Last Rate Last Dose ??? acetaminophen (TYLENOL) tablet 650 mg 650 mg oral Q6H PRN Reji Whittaker MD ??? amLODIPine (NORVASC) tablet 10 mg 10 mg oral Daily Zack Johnson PULLING UNIT OPERATOR 10 mg at 11/10/19829 ??? aspirin tablet 325 mg 325 mg oral Daily Zack Johnson NP 325 mg at 11/10/19828 ??? atorvastatin (LIPITOR) tablet 40 mg 40 mg oral Nightly Zack Johnson PULLING UNIT OPERATOR 40 mg at 11/09/192032 ??? chlorthalidone tablet 25 mg 25 mg oral Daily Zack Johnson PULLING UNIT OPERATOR 25 mg at 11/10/19828 ??? dextrose oral liquid liquid 15 g 15 g oral Q15 Min PRN Zack Johnson NP Or ??? dextrose (D10W) 10% bolus 250 mL 250 mL intravenous Q15 Min PRN Zack Johnson NP ??? dextrose oral liquid liquid 15 g 15 g oral Q15 Min PRN Reji Whittaker MD Or ??? dextrose (D10W) 10% bolus 250 mL 250 mL intravenous Q15 Min PRN Reji Whittaker MD ??? docusate sodium (COLACE) capsule 100 mg 100 mg oral BID PRN Sina Schilling MD ??? enoxaparin (LOVENOX) syringe 40 mg 40 mg subcutaneous Daily-2100 Reji Whittaker MD 40 mg at 11/09/192032 ??? gabapentin (NEURONTIN) capsule 300 mg 300 mg oral TID Zack Johnson NP 300 mg at 11/10/19829 ??? glucagon injection 1 mg 1 mg intramuscular Q30 Min PRN Zack Johnson NP ??? glucagon injection 1 mg 1 mg intramuscular Q30 Min PRN Reji Whittaker MD ??? insulin glargine (LANTUS) injection 15 Units 15 Units subcutaneous QAM Zack Johnson NP 15 Units at 11/09/19 09 ??? insulin lispro (HumaLOG, ADMELOG) injection 1-3 Units 1-3 Units subcutaneous Nightly Reji Whittaker MD ??? insulin lispro (HumaLOG, ADMELOG) injection 1-5 Units 1-5 Units subcutaneous TID with meals Reji Whittaker MD ??? levothyroxine (SYNTHROID) tablet 50 mcg 50 mcg oral Daily - 0600 Zack Johnson NP 50 mcg at11/10/19 0539 ??? ondansetron ODT (ZOFRAN-ODT) disintegrating tablet 4 mg 4 mg oral Q6H PRN Sina Schilling MD Or ??? ondansetron (ZOFRAN) injection 4 mg 4 mg intravenous Q6H PRN Sina Schilling MD ??? pantoprazole DR (PROTONIX) extended release tablet 40 mg 40 mg oral Daily Zack Johnson NP 40 mg at 11/10/1930 ??? piperacillin-tazobactam (ZOSYN) 3.375 g in sodium chloride 0.9% 100 mL IVPB 3.375 g [id number] [facility] Markel Bourgeois MD 200 mL/hr at 11/10/19 0829 3.375 g at 11/10/19 0829 ??? polyethylene glycol (MIRALAX) packet 17 g 17 g oral Daily Zack Johnson NP 17 g at 11/07/200938 ??? sodium chloride 0.9% flush 0.5-20 mL 0.5-20 mL intra-catheter Q8H KASIE Sina Schilling MD 10mL at 11/10/19 0539 ??? sodium chloride 0.9% flush 0.5-20 mL 0.5-20 mL intra-catheter PRN Sina Schilling MD ??? vancomycin 1,000 mg/200 mL in dextrose 5% (premix) 1,000 mg 1,000 mg intravenous Q24H Zack Johnson NP 1,000 mg at 11/10/19 0539 Objective: Vitals: 11/09/19 2030 11/10/19 0003 11/10/19 0413 11/10/19 0804 BP: 158/79 136/67 112/71 142/92 BP Location: Left arm Left arm Left arm Right arm Patient Position: Lying Lying Lying Lying Pulse: 86 86 81 81 Resp: 18 18 18 14 Temp: 37 ??C (98.6 ??F) 36.7 ??C (98 ??F) 36.5 ??C (97.7 ??F) 36.6 ??C (97.8 ??F) TempSrc: Oral Temporal Temporal Temporal SpO2: 100% 99% 97% 97% Weight: Height: Temp (24hrs), Av.6 ??C (97.9 ??F), Min:36.5 ??C (97.7 ??F), Max:37 ??C (98.6 ??F) Height: 157.5 cm (5' 2.01 ) Weight: 68 kg (149 lb 14.6 oz) Intake/Output Summary (Last 24 hours) at 11/10/2019 1015 Last data filed at 11/10/2019 0413 Gross per 24 hour Intake 120 ml Output 550 ml Net -430 ml Exam: General appearance: alert, cooperative, no distress HEENT: (-)icterus, Oropharnyx is dry Neck: No palpable LN Lungs: breath sounds normal and symmetric; minimal respiratory effort, no r/w/c Heart: regular rhythm, normal S1 and S2, no m/r/g Abdomen: soft without mass, non-tender, +bowel sounds, no HSM Skin: (-)new rashes, necrotic ulcerations bilaterally on heels. MSK: no gross deformities, FROM Vascular: no Edema, Neuro: No 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 Psych: Flat affect Lab: Reviewed. Recent Labs Lab Units 11/10/19 0716 11/10/19 0534 11/10/19 0219 11/08/19 0811/07/19 1124 SODIUM mmol/L -- 140 -- -- 136 -- 135 POTASSIUM PLASMA mmol/L -- 3.5 -- -- 3.3 -- 3.4 CHLORIDE mmol/L -- 96* -- -- 95* -- 94* CO2 mmol/L -- 32 -- -- 30 -- 28 ANIONGAP mmol/L -- 12 -- -- 11 -- 13 GLUCOSE mg/dL -- 63* -- -- 208* -- 197 POC GLUCOSE MONITOR mg/dL 90 -- 264* < > -- < > -- BUN SERUM mg/dL -- 20 -- -- 23 -- 33* CREATININE mg/dL -- 0.65 -- -- 0.79 -- 0.96 CALCIUM mg/dL -- 8.6 -- -- 8.2* -- 8.5 ALBUMIN g/dL -- 2.6* -- -- 2.5* -- 2.6* ALK PHOS Units/L -- 30* -- -- 34* -- 35* ALT Units/L -- 38 -- -- 32 -- 42 AST Units/L -- 40 -- -- 31 -- 36 BILIRUBIN TOTAL mg/dL -- 0.3 -- -- 0.8 -- 0.5 < > = values in this interval not displayed. Recent Labs Lab Units 11/10/19 0528 11/08/19 0811/07/19 1124 WBC K/cumm 12.4* 13.0* 14.3* HEMOGLOBIN g/dL 7.9* 8.1* 6.7* HEMATOCRIT % 24.5* 25.2* 22.0* PLATELETS K/cumm 365 363 404* Cultures: 11/05 Blood cx: Proteus mirabilis (S pending)03/14, Morganella morganii 1/2 (S: CTX, cefepime, zosyn) 11/07 blood cx: ngtd 11/06 Urine cx: pending Imagin/27 x-ray of the right foot: Positive calcaneal osteo 11/07 CT A/P w: Cardiomegaly and small pericardial effusion Very large well-circumscribed fluid collection associated with surgical samara in the ventral abdominal wall suggesting a large seroma Marked bladder wall thickening suspicious for either chronic inflammation and/or possible neoplasm Numerous possible lytic foci in the thoracic and lumbar vertebra as noted above recommend MR imaging with and without contrast if Possible 11/07 Arterial dopplers bl LE: There is severe arterial insufficiency in both lower extremities, primarily in an infrapopliteal location. Assessment: 1. Right heel ulcer the with osteo 2. Diabetes mellitus 3. Dementia 4. Leukocytosis 5. Gram-negative bacteremia 6. Left heel ulcer 7. Fluid collection with surgical samara in ventral abdominal wall ?seroma 8. Severe PVD Plan: 1. Continue IV vanc and Zosyn 2. CT scan of the abdomen and pelvis as above 5. Repeat blood cultures x2 ngtd. Will follow 6. Continue supportive care 7. Check wound cx for heels, cancelled in system. Will reorder. D/w RN 8. Recommend heme-onc consult to r/o malignancy (re:CT A/P.) Recommend urology eval and bladder US for abnormal finding on CT. Markel Bourgeois MD [facility] Call [phone] 11/10/2019 10:15 AM * Arely Fam, [facility] - 11/10/2019 8:37 AM CDT Pharmacokinetic Consult - Vancomycin Dosing Iris Gil is a 64 y.o. female who has been consulted for vancomycin dosing for complicatedskin and soft tissue infection. Relevant clinical data and objective history reviewed: Creatinine Date Value Ref Range Status 11/10/2019 0.65 0.60 - 1.10 mg/dL Final 11/08/2019 0.79 0.60 - 1.10 mg/dL Final 11/07/2019 0.96 0.60 - 1.10 mg/dL Final Creatinine, Serum Date Value Ref Range Status 06/12/2018 0.78 0.57 - 1.00 mg/dL Final 05/15/2018 0.92 0.57 - 1.00 mg/dL Final 10/30/2017 0.87 0.57 - 1.00 mg/dL Final BUN Date Value Ref Range Status 11/10/2019 20 8 - 25 mg/dL Final 11/08/2019 23 8 - 25 mg/dL Final 11/07/2019 33 (H) 8 - 25 mg/dL Final 06/12/2018 13 8 - 27 mg/dL Final 05/15/2018 16 8 - 27 mg/dL Final 10/30/2017 19 8 - 27 mg/dL Final Estimated Creatinine Clearance: 69.2 mL/min (by C-G formula based on SCr of 0.65 mg/dL). I/O last 3 completed shifts: In: 420 [P.O.:120; IV Piggyback:300] Out: 1500 [Urine:1500] Lab Results Component Value Date/Time WBC 12.4 (H) 11/10/2019 05:28 AM WBC 3.7 06/12/2018 01:03 PM HGB 7.9 (L) 11/10/2019 05:28 AM HGB 11.2 06/12/2018 01:03 PM HCT 24.5 (L) 11/10/2019 05:28 AM HCT 33.4 (L) 06/12/2018 01:03 PM MCV 90.4 11/10/2019 05:28 AM MCV 92 06/12/2018 01:03 PM LABPLAT 365 11/10/2019 05:28 AM LABPLAT 196 06/12/2018 01:03 PM Temp Readings from Last 3 Encounters: 11/10/19 36.6 ??C (97.8 ??F) (Temporal) 06/21/18 36.7 ??C (98.1 ??F) 06/12/18 36.7 ??C (98 ??F) (Oral) Patient Weight 11/07/19 68 kg (149 lb 14.6 oz) Assessment/Plan The patient has been receiving vancomycin 1000mg every 24 hours. Vancomycin trough level returned as 13.0 on 11/10/19 at 0528. No adjustment to dose or frequency necessary. Next vancomycin trough level ordered to be drawn 11/12/19 at 0530 Pharmacy will continue to follow the patient???s culture results and clinical progress daily. Day 4 of therapy Arely Fam RP * Oleksandr Ozuna NP - 11/09/2019 3:03 PM CDT Images from the original note were not included. Infectious Disease Progress Note Iris Gil Admit Date: 11/06/2019 4:27 PM 11/09/2019 Hospital Day: 4 Subjective: Afebrile. Pt is lying in bed, appears comfortable. States she does get pain in her feet. Denies abdominal pain. Kaplan intact. Seen by surgery today. Had Ct A/P with abnormal findings, result below. ROS: Denies N/V/D/SOB/cough/rashes Allergies: Allergies Allergen Reactions ? ? Codeine Phosphate Nausea & Vomiting MEDICATIONS FOR CURRENT ENCOUNTER: Current Facility-Administered Medications Medication Dose Route Frequency Provider Last Rate Last Dose ??? amLODIPine (NORVASC) tablet 10 mg 10 mg oral Daily Zack Akdiegoeljuice, PULLING UNIT OPERATOR 10 mg at 11/09/19 0900 ??? aspirin tablet 325 mg 325 mg oral Daily Zack Loganeljuice, PULLING UNIT OPERATOR 325 mg at 11/09/19 0900 ??? atorvastatin (LIPITOR) tablet 40 mg 40 mg oral Nightly Zack Johnson, PULLING UNIT OPERATOR 40 mg at 11/08/19 2232 ??? chlorthalidone tablet 25 mg 25 mg oral Daily Zack Akombeljuice, PULLING UNIT OPERATOR 25 mg at 11/09/19 0900 ??? dextrose oral liquid liquid 15 g 15 g oral Q15 Min PRN Zack Johnson NP Or ??? dextrose (D10W) 10% bolus 250 mL 250 mL intravenous Q15 Min PRN Zack Johnson NP ??? docusate sodium (COLACE) capsule 100 mg 100 mg oral BID PRN Sina Schilling MD ??? enoxaparin (LOVENOX) syringe 40 mg 40 mg subcutaneous Daily-2100 Reji Radha Whittaker MD 40 mg at 11/08/192231 ??? gabapentin (NEURONTIN) capsule 300 mg 300 mg oral TID Zack Johnson NP 300 mg at 11/09/19 0900 ??? glucagon injection 1 mg 1 mg intramuscular Q30 Min PRN Zack Johnson NP ??? insulin glargine (LANTUS) injection 15 Units 15 Units subcutaneous QAM Zack Johnson NP 15 Units at 11/09/19 0904 ??? insulin lispro (HumaLOG, ADMELOG) injection 1-2 Units 1-2 Units subcutaneous Nightly Zack Johnson NP 2 Units at 11/08/192232 ??? insulin lispro (HumaLOG, ADMELOG) injection 1-3 Units 1-3 Units subcutaneous TID with meals Zack Johnson NP 2 Units at 11/09/19 0903 ??? levothyroxine (SYNTHROID) tablet 50 mcg 50 mcg oral Daily - 0600 Zack Johnson NP 50 mcg at11/09/19 0608 ??? ondansetron ODT (ZOFRAN-ODT) disintegrating tablet 4 mg 4 mg oral Q6H PRN Sina Schilling MD Or ??? ondansetron (ZOFRAN) injection 4 mg 4 mg intravenous Q6H PRN Sina Schilling MD ??? pantoprazole DR (PROTONIX) extended release tablet 40 mg 40 mg oral Daily Zack Johnson NP 40 mg at 11/09/19 0900 ??? piperacillin-tazobactam (ZOSYN) 3.375 g in sodium chloride 0.9% 100 mL IVPB 3.375 g [id number] [facility] Markel Bourgeois MD 200 mL/hr at 11/09/19 0859 3.375 g at 11/09/19 0859 ??? polyethylene glycol (MIRALAX) packet 17 g 17 g oral Daily Zack Johnson NP 17 g at 11/07/200938 ??? sodium chloride 0.9% flush 0.5-20 mL 0.5-20 mL intra-catheter Q8H [facility] Sina Schilling MD 10mL at 11/09/19 1218 ??? sodium chloride 0.9% flush 0.5-20 mL 0.5-20 mL intra-catheter PRN Sina Schilling MD ??? vancomycin 1,000 mg/200 mL in dextrose 5% (premix) 1,000 mg 1,000 mg intravenous Q24H Zack Johnson, PULLING UNIT OPERATOR 1,000 mg at 11/09/19 0608 Objective: Vitals: 11/09/19 0058 11/09/19 0501 11/09/19 0751 11/09/19 1200 BP: (!) 174/57 141/61 107/46 130/70 BP Location: Right arm Right arm Left arm Right arm Patient Position: Lying Lying Lying Lying Pulse: 81 78 83 80 Resp: 12 Temp: 36.3 ??C (97.3 ??F) 36.3 ??C (97.3 ??F) 36.4 ??C (97.5 ??F) 36.5 ??C (97.7 ??F) TempSrc: Temporal Temporal Temporal Temporal SpO2: 97% 98% 98% 95% Weight: Height: Temp (24hrs), Av.4 ??C (97.5 ??F), Min:36.3 ??C (97.3 ??F), Max:36.6 ??C (97.8 ??F) Height: 157.5 cm (5' 2.01 ) Weight: 68 kg (149 lb 14.6 oz) Intake/Output Summary (Last 24 hours) at 11/09/2019 1503 Last data filed at 11/09/2019 1200 Gross per 24 hour Intake 300 ml Output 2200 ml Net -1900 ml Exam: General appearance: alert, cooperative, no distress HEENT: (-)icterus, Oropharnyx is dry Neck: No palpable LN Lungs: breath sounds normal and symmetric; minimal respiratory effort, no r/w/c Heart: regular rhythm, normal S1 and S2, no m/r/g Abdomen: soft without mass, non-tender, +bowel sounds, no HSM Skin: (-)new rashes, necrotic ulcerations bilaterally on heels. MSK: no gross deformities, FROM Vascular: no Edema, Neuro: No 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 Psych: Flat affect Lab: Reviewed. Recent Labs Lab Units 11/09/19 1215 11/09/19 0810 11/09/19 0223 11/08/19 0811/07/19 11211/06/191905 SODIUM mmol/L -- -- -- -- 136 -- 135 -- 134* POTASSIUM PLASMA mmol/L -- -- -- -- 3.3 -- 3.4 -- 4.1 CHLORIDE mmol/L -- -- -- -- 95* -- 94* -- 88* CO2 mmol/L -- -- -- -- 30 -- 28 -- 31 ANIONGAP mmol/L -- -- -- -- 11 -- 13 -- 15 GLUCOSE mg/dL -- -- -- -- 208* -- 197 -- 210* POC GLUCOSE MONITOR mg/dL 355* 242* 260* < > -- < > -- < > -- BUN SERUM mg/dL -- -- -- -- 23 -- 33* -- 39* CREATININE mg/dL -- -- -- -- 0.79 -- 0.96 -- 1.07 CALCIUM mg/dL -- -- -- -- 8.2* -- 8.5 -- 9.1 ALBUMIN g/dL -- -- -- -- 2.5* -- 2.6* -- 3.1* ALK PHOS Units/L -- -- -- -- 34* -- 35* -- 46 ALT Units/L -- -- -- -- 32 -- 42 -- 63* AST Units/L -- -- -- -- 31 -- 36 -- 67* BILIRUBIN TOTAL mg/dL -- -- -- -- 0.8 -- 0.5 -- 0.5 < > = values in this interval not displayed. Recent Labs Lab Units 11/08/19 0811/07/19 11211/06/19 190 WBC K/cumm 13.0* 14.3* 19.3* HEMOGLOBIN g/dL 8.1* 6.7* 7.8* HEMATOCRIT % 25.2* 22.0* 24.1* PLATELETS K/cumm 363 404* 483* Cultures: 11/05 Blood cx: Proteus mirabilis (S pending)03/14, Morganella morganii 1/2 (S: CTX, cefepime, zosyn) 11/07 blood cx: ngtd 11/06 Urine cx: pending Imagin/27 x-ray of the right foot: Positive calcaneal osteo 11/07 CT A/P w: Cardiomegaly and small pericardial effusion Very large well-circumscribed fluid collection associated with surgical samara in the ventral abdominal wall suggesting a large seroma Marked bladder wall thickening suspicious for either chronic inflammation and/or possible neoplasm Numerous possible lytic foci in the thoracic and lumbar vertebra as noted above recommend MR imaging with and without contrast if Possible 11/07 Arterial dopplers bl LE: There is severe arterial insufficiency in both lower extremities, primarily in an infrapopliteal location. Assessment: 1. Right heel ulcer the with osteo 2. Diabetes mellitus 3. Dementia 4. Leukocytosis 5. Gram-negative bacteremia 6. Left heel ulcer 7. Fluid collection with surgical samara in ventral abdominal wall ?seroma 8. Severe PVD Plan: 1. Continue IV vanc and Zosyn 2. Arterial dopplers shows arterial insuff to bl LE 3. Surgery following, had bedside debridement 11/06, no cx seen. Will follow for further plan. 4. CT scan of the abdomen and pelvis as above 5. Repeat blood cultures x2 ngtd. Will follow 6. Continue supportive care 7. Check wound cx for heels, cancelled in system. Will reorder. D/w RN 8. Recommend heme-onc consult to r/o malignancy (re:CT A/P.) Recommend urology eval and bladder US for abnormal finding on CT. Oleksandr Ozuna NP [facility] Call [phone] 11/09/2019 3:03 PM Cosigned by Avtar Mcknight MD at 11/09/2019 7:00 PM CDT * Reji Whittaker MD - 11/09/2019 1:31 PM CDT General Medicine Daily Progress SUBJECTIVE: Chief complaint of Chronic Non healing wounds bilateral feet and stage 4 gluteal decubitus ulcers. Interval History: *Chart reviewed and pt examined Patient is a 64 y.o. female with a medical history of dementia, diabetes type 2, hyperlipidemia, hypothyroidism, neuropathy, PVD, hypertension and chronic wounds who presents from a correction for wound evaluation. Patient who is A&O x1 is unable to give any accurate history, all history obtained from chart review. Patient has wound to her buttocks and bilateral heels that are gangrenous and complains of bilateral leg pain. Also patient has had numerous admissions at [facility] for bacteremia requiring IV antibiotics and wound care. Evaluation in the ER shows Na 134, BUN 39, creatinine 1.07, glucose 210, AST 67, ALT 63, initial lactate 2.3, then 1.7, WBC 19.3 with left shift, hemoglobin 7.9, hematocrit 24.1, blood cultures were drawn and pending, urinalysis pending. KUB was done and results not final; x-rays of bilateral feet also have results pending. Patient remains afebrile but hypertensive. Patient was given IV fluid bolus, Zosyn, and started on vancomycin Patient will be admitted for further evaluation and treatment 11/07/19 Consultants input appreciated Called Son Braulio Turner at [phone] He would want another Son whose number he would get give consent for Transfusion 11/07/19 17:45 Spoke with Son Mr Alisson House [phone] He consents to having his mother transfused with PRBC I Discussed the indications,type and cross match and also checking for infections which include hepatitis and HIV amongst others in the donor blood 11/08/19 Transfused 1 unit PRBC Hgb is 8.1 11/09/19 Discussed with son Mr Alisson House and gave him an update Blood culture positive for gram negative bacilli Proteus and Morganella WBC reduced from 19.3 on 11/06/19 to 13 on 11/08/19 Review of Systems Constitutional: Positive for activity change. Unobtainable due to dementia OBJECTIVE: Vitals: 24hr Min/Max: Temp Min: 36.3 ??C (97.3 ??F) Max: 36.6 ??C (97.8 ??F) Pulse Min: 76 Max: 86 BP Min: 107/46 Max: 174/57 Resp Min: 12 Max: 20 SpO2 Min: 95 % Max: 99 % Most Recent : Vitals: 11/09/19 0058 11/09/19 0501 11/09/19 0751 11/09/19 1200 BP: (!) 174/57 141/61 107/46 130/70 BP Location: Right arm Right arm Left arm Right arm Patient Position: Lying Lying Lying Lying Pulse: 81 78 83 80 Resp: 18 18 14 12 Temp: 36.3 ??C (97.3 ??F) 36.3 ??C (97.3 ??F) 36.4 ??C (97.5 ??F) 36.5 ??C (97.7 ??F) TempSrc: Temporal Temporal Temporal Temporal SpO2: 97% 98% 98% 95% Weight: Height: I/O last 2 completed shifts: In: 660 [P.O.:360; IV Piggyback:300] Out: 1850 [Urine:1850] I/O this shift: In: - Out: 350 [Urine:350] Physical Exam: Physical Exam Vitals signs and nursing note reviewed. Constitutional: Comments: Pleasant but confused HENT: Head: Normocephalic and atraumatic. Nose: Nose normal. Mouth/Throat: Mouth: Mucous membranes are moist. Eyes: Extraocular Movements: Extraocular movements intact. Conjunctiva/sclera: Conjunctivae normal. Pupils: Pupils are equal, round, and reactive to light. Neck: Musculoskeletal: Normal range of motion and neck supple. Cardiovascular: Rate and Rhythm: Normal rate and regular rhythm. Pulses: Normal pulses. Heart sounds: No murmur. Pulmonary: Effort: Pulmonary effort is normal. Breath sounds: Normal breath sounds. No wheezing. Abdominal: General: Bowel sounds are normal. There is distension. Palpations: Abdomen is soft. Hernia: A hernia is present. Comments: Ventral hernia at the region of the healed midline incision Skin: Comments: Bilateral stage 2 heel ulcers Stage 4 sacral decubitus ulcers Neurological: Mental Status: She is alert. Comments: Confused Psychiatric: Comments: Pleasant but confused Lab/Radiology/Diagnostic Review: Recent Results (from the past 24 hour(s)) POCT glucose Collection Time: 11/08/19 3:03 PM Result Value Ref Range Glucose, POC 243 (H) 70 - 199 mg/dL POCT glucose Collection Time: 11/08/19 5:39 PM Result Value Ref Range Glucose, POC 253 (H) 70 - 199 mg/dL POCT glucose Collection Time: 11/08/19 10:30 PM Result Value Ref Range Glucose, POC 275 (H) 70 - 199 mg/dL POCT glucose Collection Time: 11/09/19 2:23 AM Result Value Ref Range Glucose, POC 260 (H) 70 - 199 mg/dL POCT glucose Collection Time: 11/09/19 8:10 AM Result Value Ref Range Glucose, POC 242 (H) 70 - 199 mg/dL POCT glucose Collection Time: 11/09/19 12:15 PM Result Value Ref Range Glucose, POC 355 (H) 70 - 199 mg/dL Xr Foot Left 3 Or More Views Result Date: 11/07/2019 Narrative: EXAMINATION: XR FOOT LEFT 3 OR MORE VIEWS HISTORY: The patient is a 64-year-old female who presents with pain in the left foot. TECHNIQUE: 3 views of the left foot with portable technique.FINDINGS: No fracture or dislocation is seen. Bony structures are normally mineralized. There is marked arterial calcification. Impression: No fracture or dislocation seen. Electronically signed by: Antonino Jane M.D. Xr Foot Right 3 Or More Views Result Date: 11/07/2019 Narrative: EXAMINATION: XR FOOT RIGHT 3 OR MORE VIEWS DATE: 11/06/2019 7:50 PM HISTORY: Pain. COMPARISON: None. FINDINGS: There is a large enthesophyte arising from the posterior superior aspect of the calcaneus. Linear lucency traversing the enthesophyte may represent an avulsion injury in the acute clinical setting. Soft tissue swelling is seen near the Achilles insertion on the large enthesophyte. The calcaneus demonstrates a heterogeneous appearance, which is suggestive of osteomyelitis given associated soft tissue swelling and apparent edema/cellulitis in the subcutaneous soft tissues. Atherosclerotic peripheral vascular disease is demonstrated. Significant degenerative changes in the fo refoot. Impression: 1. 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 2. Possible enthesophyte avulsion fracture/injury as detailed above. 3. Degenerative changes most significant in the forefoot. 4. Atherosclerotic peripheral vascular disease. Electronically signed by: Harlan Tomas II, D.O. Xr Abdomen Ap 1 Vw Result Date: 11/07/2019 Narrative: EXAMINATION: XR ABDOMEN AP 1 VIEW HISTORY: The patient is a 64-year-old female who presents with abdominal distention. TECHNIQUE: AP portable supine view of the abdomen. FINDINGS: Normal intestinal gas pattern. No dilated small or large bowel loops. Samara and clips are seen overlying the lower abdomen and pelvis from prior surgery. Impression: Normal gas pattern. Electronically signed by: Antonino Jane M.D. ASSESSMENT/PLAN: Active Problems: Moderate malnutrition (CMS/HCC) Sepsis Proteus and Morganella Gangrenous wounds - patient has gangrenous wounds to bilateral heels and sacral area - has had numerous debridements at [facility] - last MRI 07/02/2019 did not show osteomyelitis; may need repeat - - wound care consult - general surgery consult ?? Sepsis -may be secondary to wound infection - initial lactate 2.3, then 1.7 - Zosyn and Vancomycin ?? Leukocytosis with left shift - patient has had multiple admissions for bacteremia - will continue Zosyn andvancomycin - blood cultures pending ID input appreciated ?? Abdominal distension - patient has history with constipation - abdominal x-ray results are negative -start on MiraLax and Colace ?? Hypertension - continue amlodipine ?? Diabetes Mellitus Type 2 -continue Lantus plus sliding scale insulin -Hgb A1c is 8.6 ?? PVD -ordered ABIs ?? Hypothyroidism -continue levothyroxine ?? Hyperlipidemia - continue atorvastatin ?? DVT prophylaxis on Lovenox and GI prophylaxis currently not indicated 1. Reji Whittaker MD * Vernell Patton [facility] - 11/08/2019 2:44 PM CDT Per [facility] Dosing and Monitoring Policy Lovenox for DVT prevention was increased to 40mg for CrCl > 30 mL/min * Reji Whittaker MD - 11/08/2019 1:45 PM CDT General Medicine Daily Progress SUBJECTIVE: Chief complaint of Chronic Non healing wounds bilateral feet and stage 4 gluteal decubitus ulcers. Interval History: *Chart reviewed and pt examined Patient is a 64 y.o. female with a medical history of dementia, diabetes type 2, hyperlipidemia, hypothyroidism, neuropathy, PVD, hypertension and chronic wounds who presents from a correction for wound evaluation. Patient who is A&O x1 is unable to give any accurate history, all history obtained from chart review. Patient has wound to her buttocks and bilateral heels that are gangrenous and complains of bilateral leg pain. Also patient has had numerous admissions at [facility] for bacteremia requiring IV antibiotics and wound care. Evaluation in the ER shows Na 134, BUN 39, creatinine 1.07, glucose 210, AST 67, ALT 63, initial lactate 2.3, then 1.7, WBC 19.3 with left shift, hemoglobin 7.9, hematocrit 24.1, blood cultures were drawn and pending, urinalysis pending. KUB was done and results not final; x-rays of bilateral feet also have results pending. Patient remains afebrile but hypertensive. Patient was given IV fluid bolus, Zosyn, and started on vancomycin Patient will be admitted for further evaluation and treatment 11/07/19 Consultants input appreciated Called Son Braulio Turner at [phone] He would want another Son whose number he would get give consent for Transfusion 11/07/19 17:45 Spoke with Son Mr Alisson House [phone] He consents to having his mother transfused with PRBC I Discussed the indications,type and cross match and also checking for infections which include hepatitis and HIV amongst others in the donor blood 11/08/19 Transfused 1 unit PRBC Hgb is 8.1 Review of Systems Constitutional: Positive for activity change. Unobtainable due to dementia OBJECTIVE: Vitals: 24hr Min/Max: Temp Min: 36.2 ??C (97.1 ??F) Max: 37.2 ??C (99 ??F) Pulse Min: 75 Max: 91 BP Min: 113/50 Max: 132/57 Resp Min: 16 Max: 20 SpO2 Min: 97 % Max: 99 % Most Recent : Vitals: 11/08/19 0255 11/08/19 0310 11/08/19 0340 11/08/19 0751 BP: 126/60 119/64 122/58 132/57 BP Location: Right arm Patient Position: Lying Pulse: 88 89 84 81 Resp: 18 18 18 16 Temp: 36.5 ??C (97.7 ??F) 36.5 ??C (97.7 ??F) 36.5 ??C (97.7 ??F) 37.2 ??C (99 ??F) TempSrc: Temporal Temporal Temporal Oral SpO2: 97% 99% 98% 98% Weight: Height: I/O last 2 completed shifts: In: 1053 [P.O.:580; I.V.:10; Blood:363; IV Piggyback:100] Out: 1700 [Urine:1700] I/O this shift: In: 240 [P.O.:240] Out: - Physical Exam: Physical Exam Vitals signs and nursing note reviewed. Constitutional: Comments: Pleasant but confused HENT: Head: Normocephalic and atraumatic. Nose: Nose normal. Mouth/Throat: Mouth: Mucous membranes are moist. Eyes: Extraocular Movements: Extraocular movements intact. Conjunctiva/sclera: Conjunctivae normal. Pupils: Pupils are equal, round, and reactive to light. Neck: Musculoskeletal: Normal range of motion and neck supple. Cardiovascular: Rate and Rhythm: Normal rate and regular rhythm. Pulses: Normal pulses. Heart sounds: No murmur. Pulmonary: Effort: Pulmonary effort is normal. Breath sounds: Normal breath sounds. No wheezing. Abdominal: General: Bowel sounds are normal. There is distension. Palpations: Abdomen is soft. Hernia: A hernia is present. Comments: Ventral hernia at the region of the healed midline incision Skin: Comments: Bilateral stage 2 heel ulcers Stage 4 sacral decubitus ulcers Neurological: Mental Status: She is alert. Comments: Confused Psychiatric: Comments: Pleasant but confused Lab/Radiology/Diagnostic Review: Recent Results (from the past 24 hour(s)) Prepare RBC: 1 Units Collection Time: 11/07/19 5:51 PM Result Value Ref Range Product code [id number] Unit Number [id number] Product Blood Type OPOS Dispense Status PRESUMED TRANSFUSED POCT glucose Collection Time: 11/07/19 6:03 PM Result Value Ref Range Glucose, POC 169 70 - 199 mg/dL Type and screen Collection Time: 11/07/19 6:20 PM Result Value Ref Range Veronica, indirect Negative ABO Rh O Positive POCT glucose Collection Time: 11/07/19 10:35 PM Result Value Ref Range Glucose, POC 265 (H) 70 - 199 mg/dL Comprehensive metabolic panel Collection Time: 11/08/19 8:12 AM Result Value Ref Range Sodium 136 135 - 145 mmol/L Potassium, pl 3.3 3.3 - 4.9 mmol/L Chloride 95 (L) 97 - 110 mmol/L CO2 30 22 - 32 mmol/L Anion gap 11 2 - 15 mmol/L BUN 23 8 - 25 mg/dL Creatinine 0.79 0.60 - 1.10 mg/dL Glucose 208 (H) 70 - 199 mg/dL Calcium 8.2 (L) 8.5 - 10.3 mg/dL Bilirubin, total 0.8 0.1 - 1.2 mg/dL Protein, pl 7.3 6.5 - 8.5 g/dL Albumin 2.5 (L) 3.5 - 5.0 g/dL Alk phos 34 (L) 40 - 130 Units/L ALT 32 7 - 45 Units/L AST 31 10 - 45 Units/L CBC with auto differential Collection Time: 11/08/19 8:12 AM Result Value Ref Range WBC 13.0 (H) 3.8 - 9.9 K/cumm Hgb 8.1 (L) 11.9 - 15.5 g/dL Hct 25.2 (L) 35.6 - 45.5 % Plt 363 150 - 400 K/cumm MPV 9.1 9.1 - 12.3 fL RBC 2.80 (L) 3.90 - 5.20 M/cumm MCV 90.0 81.3 - 96.4 fL MCH 28.9 27.1 - 33.3 pg MCHC 32.1 (L) 32.3 - 35.7 g/dL RDW CV 14.6 11.1 - 14.9 % RDW SD 46.9 35.7 - 48.1 fL NRBC abs 0.00 0.00 - 0.01 K/cumm Differential, auto Collection Time: 11/08/19 8:12 AM Result Value Ref Range Neutrophil abs 10.9 (H) 1.7 - 6.5 K/cumm Imm gran abs 0.1 0.0 - 0.1 K/cumm Lymphocyte abs 1.3 0.8 - 3.3 K/cumm Monocyte abs 0.5 0.2 - 0.8 K/cumm Eosinophil abs 0.1 0.0 - 0.5 K/cumm Basophil abs 0.1 0.0 - 0.1 K/cumm Neutrophil pct 84.2 % Imm gran pct 0.6 % Lymphocyte pct 10.3 % Monocyte pct 3.8 % Eosinophil pct 0.6 % Basophil pct 0.5 % eGFR Collection Time: 11/08/19 8:12 AM Result Value Ref Range GFR 79 mL/min/1.73 m2 POCT glucose Collection Time: 11/08/19 8:39 AM Result Value Ref Range Glucose, POC 211 (H) 70 - 199 mg/dL Xr Foot Left 3 Or More Views Result Date: 11/07/2019 Narrative: EXAMINATION: XR FOOT LEFT 3 OR MORE VIEWS HISTORY: The patient is a 64-year-old female who presents with pain in the left foot. TECHNIQUE: 3 views of the left foot with portable technique.FINDINGS: No fracture or dislocation is seen. Bony structures are normally mineralized. There is marked arterial calcification. Impression: No fracture or dislocation seen. Electronically signed by: Antonino Jane M.D. Xr Foot Right 3 Or More Views Result Date: 11/07/2019 Narrative: EXAMINATION: XR FOOT RIGHT 3 OR MORE VIEWS DATE: 11/06/2019 7:50 PM HISTORY: Pain. COMPARISON: None. FINDINGS: There is a large enthesophyte arising from the posterior superior aspect of the calcaneus. Linear lucency traversing the enthesophyte may represent an avulsion injury in the acute clinical setting. Soft tissue swelling is seen near the Achilles insertion on the large enthesophyte. The calcaneus demonstrates a heterogeneous appearance, which is suggestive of osteomyelitis given associated soft tissue swelling and apparent edema/cellulitis in the subcutaneous soft tissues. Atherosclerotic peripheral vascular disease is demonstrated. Significant degenerative changes in the fo refoot. Impression: 1. 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 2. Possible enthesophyte avulsion fracture/injury as detailed above. 3. Degenerative changes most significant in the forefoot. 4. Atherosclerotic peripheral vascular disease. Electronically signed by: Harlan Tomas II, D.O. Xr Abdomen Ap 1 Vw Result Date: 11/07/2019 Narrative: EXAMINATION: XR ABDOMEN AP 1 VIEW HISTORY: The patient is a 64-year-old female who presents with abdominal distention. TECHNIQUE: AP portable supine view of the abdomen. FINDINGS: Normal intestinal gas pattern. No dilated small or large bowel loops. Wesley and clips are seen overlying the lower abdomen and pelvis from prior surgery. Impression: Normal gas pattern. Electronically signed by: Antonino Jane M.D. ASSESSMENT/PLAN: Active Problems: Moderate malnutrition (CMS/HCC) Gangrenous wounds - patient has gangrenous wounds to bilateral heels and sacral area - has had numerous debridements at [facility] - last MRI 07/02/2019 did not show osteomyelitis; may need repeat - - wound care consult - general surgery consult ?? Sepsis -may be secondary to wound infection - initial lactate 2.3, then 1.7 - Zosyn and Vancomycin ?? Leukocytosis with left shift - patient has had multiple admissions for bacteremia - will continue Zosyn andvancomycin - blood cultures pending ID input appreciated ?? Abdominal distension - patient has history with constipation - abdominal x-ray results are negative -start on MiraLax and Colace ?? Hypertension - continue amlodipine ?? Diabetes Mellitus Type 2 -continue Lantus plus sliding scale insulin -Hgb A1c is 8.6 ?? PVD -ordered ABIs ?? Hypothyroidism -continue levothyroxine ?? Hyperlipidemia - continue atorvastatin ?? DVT prophylaxis on Lovenox and GI prophylaxis currently not indicated 1. Reji Whittaker MD * Reji Whittaker MD - 11/07/2019 5:12 PM CDT General Medicine Daily Progress SUBJECTIVE: Chief complaint of Chronic Non heeling wounds bilateral feet and stage 4 gluteal decubitus ulcers. Interval History: *Chart reviewed and pt examined Patient is a 64 y.o. female with a medical history of dementia, diabetes type 2, hyperlipidemia, hypothyroidism, neuropathy, PVD, hypertension and chronic wounds who presents from a correction for wound evaluation. Patient who is A&O x1 is unable to give any accurate history, all history obtained from chart review. Patient has wound to her buttocks and bilateral heels that are gangrenous and complains of bilateral leg pain. Also patient has had numerous admissions at [facility] for bacteremia requiring IV antibiotics and wound care. Evaluation in the ER shows Na 134, BUN 39, creatinine 1.07, glucose 210, AST 67, ALT 63, initial lactate 2.3, then 1.7, WBC 19.3 with left shift, hemoglobin 7.9, hematocrit 24.1, blood cultures were drawn and pending, urinalysis pending. KUB was done and results not final; x-rays of bilateral feet also have results pending. Patient remains afebrile but hypertensive. Patient was given IV fluid bolus, Zosyn, and started on vancomycin Patient will be admitted for further evaluation and treatment 11/07/19 Consultants input appreciated Called Son Braulio Turner at [phone] He would want another Son whose number he would get give consent for Transfusion 11/07/19 17:45 Spoke with Son Mr Alisson House [phone] He consents to having his mother transfused with PRBC I Discussed the indications,type and cross match and also checking for infections which include hepatitis and HIV amongst others in the donor blood Review of Systems Constitutional: Positive for activity change. Unobtainable due to dementia OBJECTIVE: Vitals: 24hr Min/Max: Temp Min: 36.2 ??C (97.1 ??F) Max: 37.3 ??C (99.1 ??F) Pulse Min: 75 Max: 96 BP Min: 111/53 Max: 173/108 Resp Min: 18 Max: 20 SpO2 Min: 97 % Max: 100 % Most Recent : Vitals: 11/07/19 0752 11/07/19 1226 11/07/19 1239 11/07/19 1551 BP: 121/67 111/53 113/50 BP Location: Left arm Left arm Left arm Patient Position: Lying Lying Lying Pulse: 79 81 75 Resp: 20 20 20 Temp: 37.2 ??C (99 ??F) 36.6 ??C (97.9 ??F) 36.2 ??C (97.1 ??F) TempSrc: Oral Oral Oral SpO2: 99% 100% 97% Weight: Height: 157.5 cm (5' 2.01 ) I/O last 2 completed shifts: In: 1100 [IV Piggyback:1100] Out: - I/O this shift: In: 340 [P.O.:340] Out: - Physical Exam: Physical Exam Vitals signs and nursing note reviewed. Constitutional: Comments: Pleasant but confused HENT: Head: Normocephalic and atraumatic. Nose: Nose normal. Mouth/Throat: Mouth: Mucous membranes are moist. Eyes: Extraocular Movements: Extraocular movements intact. Conjunctiva/sclera: Conjunctivae normal. Pupils: Pupils are equal, round, and reactive to light. Neck: Musculoskeletal: Normal range of motion and neck supple. Cardiovascular: Rate and Rhythm: Normal rate and regular rhythm. Pulses: Normal pulses. Heart sounds: No murmur. Pulmonary: Effort: Pulmonary effort is normal. Breath sounds: Normal breath sounds. No wheezing. Abdominal: General: Bowel sounds are normal. There is distension. Palpations: Abdomen is soft. Hernia: A hernia is present. Comments: Ventral hernia at the region of the healed midline incision Skin: Comments: Bilateral stage 2 heel ulcers Stage 4 sacral decubitus ulcers Neurological: Mental Status: She is alert. Comments: Confused Psychiatric: Comments: Pleasant but confused Lab/Radiology/Diagnostic Review: Recent Results (from the past 24 hour(s)) Blood culture Blood Collection Time: 11/06/19 7:06 PM Specimen: Blood Result Value Ref Range Direct Specimen Exam Stain: Gram Negative Bacilli Time to culture positivity (anaerobic media): 10.9 hours Notification of: Gram Negative Bacilli called to and read back by: Joleen Michel RN ([phone]) on 11/07/2019 11:56:21 by: Berta Martinez MT Report Preliminary Report: Culture results pending. (.) Blood culture Blood Collection Time: 11/06/19 7:06 PM Specimen: Blood Result Value Ref Range Direct Specimen Exam Stain: Gram Negative Bacilli Time to culture positivity (anaerobic media): 12.6 hours Report Preliminary Report: Culture results pending. (.) CBC with auto differential Collection Time: 11/06/19 7:06 PM Result Value Ref Range WBC 19.3 (H) 3.8 - 9.9 K/cumm Hgb 7.8 (L) 11.9 - 15.5 g/dL Hct 24.1 (L) 35.6 - 45.5 % Plt 483 (H) 150 - 400 K/cumm MPV 9.6 9.1 - 12.3 fL RBC 2.64 (L) 3.90 - 5.20 M/cumm MCV 91.3 81.3 - 96.4 fL MCH 29.5 27.1 - 33.3 pg MCHC 32.4 32.3 - 35.7 g/dL RDW CV 14.6 11.1 - 14.9 % RDW SD 49.1 (H) 35.7 - 48.1 fL NRBC abs 0.00 0.00 - 0.01 K/cumm Comprehensive metabolic panel Collection Time: 11/06/19 7:06 PM Result Value Ref Range Sodium 134 (L) 135 - 145 mmol/L Potassium, pl 4.1 3.3 - 4.9 mmol/L Chloride 88 (L) 97 - 110 mmol/L CO2 31 22 - 32 mmol/L Anion gap 15 2 - 15 mmol/L BUN 39 (H) 8 - 25 mg/dL Creatinine 1.07 0.60 - 1.10 mg/dL Glucose 210 (H) 70 - 199 mg/dL Calcium 9.1 8.5 - 10.3 mg/dL Bilirubin, total 0.5 0.1 - 1.2 mg/dL Protein, pl 8.5 6.5 - 8.5 g/dL Albumin 3.1 (L) 3.5 - 5.0 g/dL Alk phos 46 40 - 130 Units/L ALT 63 (H) 7 - 45 Units/L AST 67 (H) 10 - 45 Units/L Sepsis Lactate w/ Reflex Collection Time: 11/06/19 7:06 PM Result Value Ref Range Sepsis Lactate 2.3 (H) 0.7 - 2.0 mmol/L Differential, auto Collection Time: 11/06/19 7:06 PM Result Value Ref Range Neutrophil abs 17.4 (H) 1.7 - 6.5 K/cumm Imm gran abs 0.2 (H) 0.0 - 0.1 K/cumm Lymphocyte abs 1.0 0.8 - 3.3 K/cumm Monocyte abs 0.6 0.2 - 0.8 K/cumm Eosinophil abs 0.1 0.0 - 0.5 K/cumm Basophil abs 0.1 0.0 - 0.1 K/cumm Neutrophil pct 90.1 % Imm gran pct 0.9 % Lymphocyte pct 5.1 % Monocyte pct 3.1 % Eosinophil pct 0.5 % Basophil pct 0.3 % eGFR Collection Time: 11/06/19 7:06 PM Result Value Ref Range GFR 55 mL/min/1.73 m2 Sepsis Lactate w/ Reflex Collection Time: 11/06/19 9:29 PM Result Value Ref Range Sepsis Lactate 1.7 0.7 - 2.0 mmol/L Sepsis Lactate w/ Reflex Collection Time: 11/06/19 11:55 PM Result Value Ref Range Sepsis Lactate 1.7 0.7 - 2.0 mmol/L Urinalysis reflex to microscopic and culture Urine, in and out catheter Collection Time: 11/07/19 1:45 AM Specimen: Urine, in and out catheter Result Value Ref Range Color, ur Yellow Yellow Clarity, ur Turbid (A) Clear Specific gravity, ur 1.012 1.010 - 1.025 pH, urine 5.0 Protein, ur ql 2+ (A) Negative Glucose, ur ql Negative Negative Ketones, ur Negative Negative Bilirubin, ur Negative Negative Blood, ur 2+ (A) Negative Urobilinogen, ur 2.0 (A) <2.0 mg/dL Nitrite, ur Negative Negative Leukocyte esterase, ur 4+ (A) Negative UA reflex comment Reflex to microscopic UA will be performed. Urinalysis, microscopic only Collection Time: 11/07/19 1:45 AM Result Value Ref Range WBC, ur >50 (A) 0 - 5 /HPF RBC, ur >50 (A) 0 - 2 /HPF Epithelial cells, squamous, ur 1-5 0 - 5 /HPF Bacteria, ur 4+ (A) Culture Reflex Comment Reflex to urine culture will be performed. POCT glucose Collection Time: 11/07/19 8:22 AM Result Value Ref Range Glucose, POC 151 70 - 199 mg/dL CBC with auto differential Collection Time: 11/07/19 11:24 AM Result Value Ref Range WBC 14.3 (H) 3.8 - 9.9 K/cumm Hgb 6.7 (L) 11.9 - 15.5 g/dL Hct 22.0 (L) 35.6 - 45.5 % Plt 404 (H) 150 - 400 K/cumm MPV 9.4 9.1 - 12.3 fL RBC 2.37 (L) 3.90 - 5.20 M/cumm MCV 92.8 81.3 - 96.4 fL MCH 28.3 27.1 - 33.3 pg MCHC 30.5 (L) 32.3 - 35.7 g/dL RDW CV 14.8 11.1 - 14.9 % RDW SD 50.0 (H) 35.7 - 48.1 fL NRBC abs 0.00 0.00 - 0.01 K/cumm Comprehensive metabolic panel Collection Time: 11/07/19 11:24 AM Result Value Ref Range Sodium 135 135 - 145 mmol/L Potassium, pl 3.4 3.3 - 4.9 mmol/L Chloride 94 (L) 97 - 110 mmol/L CO2 28 22 - 32 mmol/L Anion gap 13 2 - 15 mmol/L BUN 33 (H) 8 - 25 mg/dL Creatinine 0.96 0.60 - 1.10 mg/dL Glucose 197 70 - 199 mg/dL Calcium 8.5 8.5 - 10.3 mg/dL Bilirubin, total 0.5 0.1 - 1.2 mg/dL Protein, pl 7.6 6.5 - 8.5 g/dL Albumin 2.6 (L) 3.5 - 5.0 g/dL Alk phos 35 (L) 40 - 130 Units/L ALT 42 7 - 45 Units/L AST 36 10 - 45 Units/L Differential, auto Collection Time: 11/07/19 11:24 AM Result Value Ref Range Neutrophil abs 12.4 (H) 1.7 - 6.5 K/cumm Imm gran abs 0.1 0.0 - 0.1 K/cumm Lymphocyte abs 1.2 0.8 - 3.3 K/cumm Monocyte abs 0.5 0.2 - 0.8 K/cumm Eosinophil abs 0.1 0.0 - 0.5 K/cumm Basophil abs 0.0 0.0 - 0.1 K/cumm Neutrophil pct 86.8 % Imm gran pct 0.7 % Lymphocyte pct 8.3 % Monocyte pct 3.3 % Eosinophil pct 0.6 % Basophil pct 0.3 % eGFR Collection Time: 11/07/19 11:24 AM Result Value Ref Range GFR 62 mL/min/1.73 m2 POCT glucose Collection Time: 11/07/19 12:43 PM Result Value Ref Range Glucose, POC 209 (H) 70 - 199 mg/dL Xr Foot Left 3 Or More Views Result Date: 11/07/2019 Narrative: EXAMINATION: XR FOOT LEFT 3 OR MORE VIEWS HISTORY: The patient is a 64-year-old female who presents with pain in the left foot. TECHNIQUE: 3 views of the left foot with portable technique.FINDINGS: No fracture or dislocation is seen. Bony structures are normally mineralized. There is marked arterial calcification. Impression: No fracture or dislocation seen. Electronically signed by: Antonino Jane M.D. Xr Foot Right 3 Or More Views Result Date: 11/07/2019 Narrative: EXAMINATION: XR FOOT RIGHT 3 OR MORE VIEWS DATE: 11/06/2019 7:50 PM HISTORY: Pain. COMPARISON: None. FINDINGS: There is a large enthesophyte arising from the posterior superior aspect of the calcaneus. Linear lucency traversing the enthesophyte may represent an avulsion injury in the acute clinical setting. Soft tissue swelling is seen near the Achilles insertion on the large enthesophyte. The calcaneus demonstrates a heterogeneous appearance, which is suggestive of osteomyelitis given associated soft tissue swelling and apparent edema/cellulitis in the subcutaneous soft tissues. Atherosclerotic peripheral vascular disease is demonstrated. Significant degenerative changes in the fo refoot. Impression: 1. 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 2. Possible enthesophyte avulsion fracture/injury as detailed above. 3. Degenerative changes most significant in the forefoot. 4. Atherosclerotic peripheral vascular disease. Electronically signed by: Harlan Tomas II, D.O. Xr Abdomen Ap 1 Vw Result Date: 11/07/2019 Narrative: EXAMINATION: XR ABDOMEN AP 1 VIEW HISTORY: The patient is a 64-year-old female who presents with abdominal distention. TECHNIQUE: AP portable supine view of the abdomen. FINDINGS: Normal intestinal gas pattern. No dilated small or large bowel loops. Wesley and clips are seen overlying the lower abdomen and pelvis from prior surgery. Impression: Normal gas pattern. Electronically signed by: Antonino Jane M.D. ASSESSMENT/PLAN: Active Problems: No Active Problems: There are no active problems currently on the Problem List. Please update the Problem List and refresh. Gangrenous wounds - patient has gangrenous wounds to bilateral heels and sacral area - has had numerous debridements at [facility] - last MRI 07/02/2019 did not show osteomyelitis; may need repeat - x-rays of bilateral hip was done, results not final - wound care consult - general surgery consult ?? Sepsis -may be secondary to wound infection - initial lactate 2.3, then 1.7 - given fluid bolus and dose of Zosyn -blood cultures pending ?? Leukocytosis with left shift - patient has had multiple admissions for bacteremia - will continue Zosyn and start vancomycin - blood cultures pending - will consult ID for antibiotic management ?? Abdominal distension - patient has history with constipation - abdominal x-ray done results not final -start on MiraLax and Colace ?? Hypertension - continue amlodipine ?? Diabetes -continue Lantus plus sliding scale insulin -check A1c ?? PVD -ordered ABIs ?? Hypothyroidism -continue levothyroxine ?? Hyperlipidemia - continue atorvastatin ?? DVT prophylaxis on Lovenox and GI prophylaxis currently not indicated 1. Reji Whittaker MD * Conrad Huynh, [facility] - 11/07/2019 12:54 AM CDT Pharmacokinetic Consult - Vancomycin Dosing Iris Gil is a 64 y.o. female who has been consulted for vancomycin dosing for complicatedskin and soft tissue infection. Relevant clinical data and objective history reviewed: Creatinine Date Value Ref Range Status 11/06/2019 1.07 0.60 - 1.10 mg/dL Final 01/25/2019 0.9 0.5 - 1.1 mg/dL Final Comment: NOTE: Estimated GFR (Cockroft-Gault) will NOT be calculated unless patient Height and Weight were entered. Also, Kidney Disease Stage (GFR) and Estimated GFR (C[place]roft-Gault) will NOT be calculated if Creatinine result is <0.2. 12/02/2018 0.9 0.5 - 1.1 mg/dL Final Comment: NOTE: Estimated GFR (C[place]roft-Gault) will NOT be calculated unless patient Height and Weight were entered. Also, Kidney Disease Stage (GFR) and Estimated GFR (Cockroft-Gault) will NOT be calculated if Creatinine result is <0.2. 07/31/2018 0.7 0.5 - 1.1 mg/dL Final Comment: NOTE: Estimated GFR (Cockroft-Gault) will NOT be calculated unless patient Height and Weight were entered. Also, Kidney Disease Stage (GFR) and Estimated GFR (C[place]roft-Gault) will NOT be calculated if Creatinine result is <0.2. Creatinine, Serum Date Value Ref Range Status 06/12/2018 0.78 0.57 - 1.00 mg/dL Final 05/15/2018 0.92 0.57 - 1.00 mg/dL Final 10/30/2017 0.87 0.57 - 1.00 mg/dL Final BUN Date Value Ref Range Status 11/06/2019 39 (H) 8 - 25 mg/dL Final 06/12/2018 13 8 - 27 mg/dL Final 05/15/2018 16 8 - 27 mg/dL Final 10/30/2017 19 8 - 27 mg/dL Final Estimated Creatinine Clearance: 42 mL/min (by C-G formula based on SCr of 1.07 mg/dL). No intake/output data recorded. Lab Results Component Value Date/Time WBC 19.3 (H) 11/06/2019 07:06 PM WBC 3.7 06/12/2018 01:03 PM HGB 7.8 (L) 11/06/2019 07:06 PM HGB 11.2 06/12/2018 01:03 PM HCT 24.1 (L) 11/06/2019 07:06 PM HCT 33.4 (L) 06/12/2018 01:03 PM MCV 91.3 11/06/2019 07:06 PM MCV 92 06/12/2018 01:03 PM LABPLAT 483 (H) 11/06/2019 07:06 PM LABPLAT 196 06/12/2018 01:03 PM Temp Readings from Last 3 Encounters: 11/07/19 37.3 ??C (99.1 ??F) 06/21/18 36.7 ??C (98.1 ??F) 06/12/18 36.7 ??C (98 ??F) (Oral) Patient Weight 11/06/19 68 kg (150 lb) . Assessment/Plan The patient will be started on vancomycin utilizing scheduled dosing based on actual body weight. Will initiate dose at 1750 mg IV loading dose, then 1000mg every 24 hours. Pharmacy will also follow closely for signs and symptoms of toxicity. Serum creatinine will be ordered per policy. Vancomycin trough level has been ordered to be drawn on 11/09 at 0530. Goal trough is 10-20. Pharmacy will continue to follow the patient???s culture results and clinical progress daily. Day 1 of therapy. Conrad Huynh RPh documented in this encounter H&P Notes * Zack Johnson, PULLING UNIT OPERATOR - 11/06/2019 10:22 PM CDT Images from the original note were not included. History and Physical CHIEF COMPLAINT Chief Complaint Patient presents with ??? Wound Check HPI Patient is a 64 y.o. female with a medical history of dementia, diabetes type 2, hyperlipidemia, hypothyroidism, neuropathy, PVD, hypertension and chronic wounds who presents from a correction for wound evaluation. Patient who is A&O x1 is unable to give any accurate history, all history obtained from chart review. Patient has wound to her buttocks and bilateral heels that are gangrenous and complains of bilateral leg pain. Also patient has had numerous admissions at [facility] for bacteremia requiring IV antibiotics and wound care. Evaluation in the ER shows Na 134, BUN 39, creatinine 1.07, glucose 210, AST 67, ALT 63, initial lactate 2.3, then 1.7, WBC 19.3 with left shift, hemoglobin 7.9, hematocrit 24.1, blood cultures were drawn and pending, urinalysis pending. KUB was done and results not final; x-rays of bilateral feet also have results pending. Patient remains afebrile but hypertensive. Patient was given IV fluid bolus, Zosyn, and started on vancomycin Patient will be admitted for further evaluation and treatment PAST MEDICAL HISTORY Past Medical History: Diagnosis Date ??? Dementia (CMS/HCC) ??? Diabetes mellitus (CMS/HCC) Hyperlipidemia Hypothyroidism Neuropathy PVD Chronic wounds ??? Hypertension PAST SURGICAL HISTORY Past Surgical History: Procedure Laterality Date ??? HERNIA REPAIR ??? BREAST SURGERY Bilateral ??? KNEE SURGERY Right ??? REMOVAL OF OVARY(S) Left ??? UPPER ARM/ELBOW SURGERY UNLISTED Right ALLERGIES Allergies Allergen Reactions ? ? Codeine Phosphate Nausea & Vomiting FAMILY HISTORY family history includes Diabetes in her brother and mother; Heart disease in her father; No Known Problems in her daughter, sister, son, son, and son. SOCIAL HISTORY Patient lives at [facility] in [place]. HOME MEDICATIONS Prior to Admission medications Medication Sig Start Date End Date Taking? Authorizing Provider amLODIPine (NORVASC) 10 mg tablet 08/09/17 Historical Provider, atorvastatin (LIPITOR) 80 mg tablet 08/08/17 Historical Provider, donepezil (ARICEPT) 5 mg tablet Take 1 tablet (5 mg total) by mouth nightly. 10/30/17 10/30/18 Damon Swanson DO furosemide (LASIX) 40 mg tablet Take 1 tablet (40 mg total) by mouth daily 09/10/18 Damon Swanson DO insulin glargine (LANTUS U-100 INSULIN) 100 unit/mL injection 03/21/2017Lantus, inj 100/ml Vial (ml)sub-Qas directedCurrent Medication 03/21/17 Historical Provider, lisinopril (PRINIVIL,ZESTRIL) 20 mg tablet 08/09/17 Historical Provider, metFORMIN (GLUCOPHAGE) 500 mg tablet Take 500 mg by mouth 2 (two) times a day with meals. Historical Provider, potassium chloride ER (KLOR-CON,K-DUR) 10 mEq CR tablet Take 2 tablet/capsule (20 mEq total) by mouth daily 06/12/18 Damon Swanson DO pregabalin (LYRICA) 50 mg capsule Take 1 capsule (50 mg total) by mouth 2 (two) times a day 06/21/18Rene Shelton MD rOPINIRole (REQUIP) 2 mg tablet Take 1 tablet (2 mg total) by mouth nightly. 05/15/18 05/15/19 Damon Swanson DO REVIEW OF SYSTEMS Review of Systems Constitutional: Positive for activity change. HENT: Negative. Eyes: Negative. Respiratory: Negative. Cardiovascular: Negative. Gastrointestinal: Positive for abdominal distention. Musculoskeletal: Positive for gait problem. Skin: Positive for wound. Psychiatric/Behavioral: Negative. OBJECTIVE Temp Av.7 ??C (98 ??F) Min: 36.7 ??C (98 ??F) Max: 36.7 ??C (98 ??F) BP Min: 122/93 Max: 173/108 Pulse Av.3 Min: 88 Max: 96 Resp Av Min: 18 Max: 20 SpO2 Av.3 % Min: 99 % Max: 100 % No intake/output data recorded. Weight: Wt Readings from Last 1 Encounters: 11/06/19 68 kg (150 lb) PHYSICAL EXAM General: This is a 64 y.o. female in no acute distress. Head: Normocephalic, atraumatic. Eyes: PERRLA, EOMI bilaterally. No conjunctival injection. ENT: Nasal cavity is patent. Mucus membranes are pink and moist without bleeding. Missing teeth Neck: Supple. No JVD. No lymphadenopathy. Trachea is in the midline position. Lungs: Diminished lung sounds bilaterally. No wheezing auscultated. Heart: S1 and S2, RRR, systolic murmur auscultated. Abdomen: Round, firm, nontender. Bowel sounds are present in all four quadrants. Extremities: Bilateral lower extremities discolored warm to touch; gangrenous wounds to bilateral heels; coldness to dorsum part of bilateral feet, unable to palpate pulses Neuro: Patient is awake and alert x 1. Psychiatric: Normal mood and affect. Behavior is normal. Skin: Warm and dry. LAB/RADIOLOGY/DIAGNOSTIC: Recent Labs Lab Units 11/06/19 1906 WBC K/cumm 19.3* HEMOGLOBIN g/dL 7.8* HEMATOCRIT % 24.1* PLATELETS K/cumm 483* NEUTROS PCT % 90.1 LYMPHS PCT % 5.1 MONOS PCT % 3.1 EOS PCT % 0.5 Recent Labs Lab Units 11/06/19 1906 SODIUM mmol/L 134* POTASSIUM PLASMA mmol/L 4.1 CHLORIDE mmol/L 88* CO2 mmol/L 31 ANIONGAP mmol/L 15 GLUCOSE mg/dL 210* BUN SERUM mg/dL 39* CREATININE mg/dL 1.07 CALCIUM mg/dL 9.1 ALBUMIN g/dL 3.1* ALK PHOS Units/L 46 ALT Units/L 63* AST Units/L 67* BILIRUBIN TOTAL mg/dL 0.5 Lab Results Lab Value Date/Time TROPONINI <0.300 07/31/2018 0947 TROPONINI < 0.300 11/18/2017 1619 TROPONINI < 0.300 08/31/2016 0624 Lab Results Component Value Date BNP 59 07/31/2018 BNP 23 04/11/2018 BNP 34 04/09/2018 Lab Results Component Value Date TSH 17.13 (H) 10/18/2016 LAB TREND CBC: Lab Results Component Value Date WBC 19.3 (H) 11/06/2019 HGB 7.8 (L) 11/06/2019 HCT 24.1 (L) 11/06/2019 BMP: Lab Results Component Value Date SODIUM 134 (L) 11/06/2019 POTASSIUM 4.1 11/06/2019 CHLORIDE 88 (L) 11/06/2019 CREATININE 1.07 11/06/2019 CALCIUM 9.1 11/06/2019 No results found for: BNP Lab Results Component Value Date ALKPHOS 46 11/06/2019 No results found for: MAGNESIUM Lab Results Component Value Date AST 67 (H) 11/06/2019 Lab Results Component Value Date ALT 63 (H) 11/06/2019 Radiology: No results found. EKG: ASSESSMENT AND PLAN All Diagnosis Present on Admission Present on Admission: Gangrenous wounds - patient has gangrenous wounds to bilateral heels and sacral area - has had numerous debridements at [facility] - last MRI 07/02/2019 did not show osteomyelitis; may need repeat - x-rays of bilateral hip was done, results not final - wound care consult - general surgery consult Sepsis -may be secondary to wound infection - initial lactate 2.3, then 1.7 - given fluid bolus and dose of Zosyn -blood cultures pending Leukocytosis with left shift - patient has had multiple admissions for bacteremia - will continue Zosyn and start vancomycin - blood cultures pending - will consult ID for antibiotic management Abdominal distension - patient has history with constipation - abdominal x-ray done results not final -start on MiraLax and Colace Hypertension - continue amlodipine Diabetes -continue Lantus plus sliding scale insulin -check A1c PVD -ordered ABIs Hypothyroidism -continue levothyroxine Hyperlipidemia - continue atorvastatin DVT prophylaxis on Lovenox and GI prophylaxis currently not indicated CONSULTS IP CONSULT TO GENERAL SURGERY IP CONSULT TO INFECTIOUS DISEASES IP CONSULT TO WOUND CARE IP CONSULT TO REGISTERED DIETITIAN Code Status: Full code Anticipated date of discharge: To be determined per hospital course Zack Johnson NP 11/06/2019 10:22 PM [facility] Primary Care Physician: Zeke Puente MD Voice recognition software [employer] Direct was used dictate and transcribe this document. Cardiac Nurse Practitioner variances may occur. Despite proofreading, typographical errors may occur. Cosigned by Duke Bernstein MD at 11/07/2019 10:17 PM CDT documented in this encounter Consult Notes * George Vegas MD - 11/11/2019 5:00 PM CDTAssociated Order(s): IP CONSULT TO UROLOGY Urology Consult Reason for Consult: Possible urinary bladder tumor Requesting Provider: Dr. Reji Whittaker Subjective Patient is a 64 y.o. female with chief complaint of possible bladder tumor HPI: Mr. Iris Gil is a 64 yo female who presented on 11/06/19 for management of decubiti. She has several co-morbidities that include dementia, diabetes mellitus, neuropathy, HTN, and chronic wounds. 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 She has had numerous admissions for antibiotics and wound care. She was found to have Covid-19 and is on the Covid floor. She presented with evidence of sepsis, and CT was obtained and demonstrates a thickened bladder wall. This is likely due to chronic inflammation or neoplasm. and Urology was consulted. She is not able to provide any history. Past Medical History: Diagnosis Date ??? Dementia (CMS/HCC) ??? Diabetes mellitus (CMS/HCC) ??? Hypertension Past Surgical History: Procedure Laterality Date ??? HERNIA REPAIR Social History Tobacco Use ??? Smoking status: Never Smoker ??? Smokeless tobacco: Never Used Substance Use Topics ??? Alcohol use: No Family History Problem Relation Age of Onset ??? Diabetes Mother ??? Heart disease Father ??? No Known Problems Sister ??? Diabetes Brother ??? No Known Problems Daughter ??? No Known Problems Son ??? No Known Problems Son ??? No Known Problems Son Medications Prior to Admission Medication Sig Dispense Refill Last Dose ??? amLODIPine (NORVASC) 10 mg tablet 0 Unknown at Unknown time ??? atorvastatin (LIPITOR) 80 mg tablet 0 Unknown at Unknown time ??? donepezil (ARICEPT) 5 mg tablet Take 1 tablet (5 mg total) by mouth nightly. 30 tablet 3 ??? furosemide (LASIX) 40 mg tablet Take 1 tablet (40 mg total) by mouth daily 30 tablet 2 Unknown at Unknown time ??? insulin glargine (LANTUS U-100 INSULIN) 100 unit/mL injection 03/21/2017Lantus, inj 100/ml Vial(ml)sub-Qas directedCurrent Medication Unknown at Unknown time ??? lisinopril (PRINIVIL,ZESTRIL) 20 mg tablet 0 Unknown at Unknown time ??? metFORMIN (GLUCOPHAGE) 500 mg tablet Take 500 mg by mouth 2 (two) times a day with meals. Unknown at Unknown time ??? potassium chloride ER (KLOR-CON,K-DUR) 10 mEq CR tablet Take 2 tablet/capsule (20 mEq total) bymouth daily 60 tablet/capsule 2 Unknown at Unknown time ??? pregabalin (LYRICA) 50 mg capsule Take 1 capsule (50 mg total) by mouth 2 (two) times a day 84 capsule 0 Unknown at Unknown time ??? rOPINIRole (REQUIP) 2 mg tablet Take 1 tablet (2 mg total) by mouth nightly. 30 tablet 1 Allergies Allergen Reactions ? ? Codeine Phosphate Nausea & Vomiting Review of Systems: Unable to obtain Vitals: 24hr Min/Max: Temp Min: 36.4 ??C (97.5 ??F) Max: 37.3 ??C (99.1 ??F) Pulse Min: 53 Max: 73 BP Min: 109/64 Max: 123/63 Resp Min: 15 Max: 18 SpO2 Min: 94 % Max: 100 % Most Recent : Vitals: 11/11/19 1533 BP: 109/64 Pulse: 59 Resp: 15 Temp: 36.4 ??C (97.6 ??F) SpO2: 97% I/O last 2 completed shifts: In: - Out: 1850 [Urine:1850] I/O this shift: In: 440 [P.O.:440] Out: 950 [Urine:950] Objective Physical Exam: Pt is on Covid isolation. Detailed exam is not performed. PE would not alter the present opinion Lab/Radiology/Diagnostic Review: Lab Results Component Value Date WBC 12.4 (H) 11/10/2019 HGB 7.9 (L) 11/10/2019 HCT 24.5 (L) 11/10/2019 MCV 90.4 11/10/2019 LABPLAT 365 11/10/2019 Lab Results Component Value Date GLUCOSE 237 (H) 11/11/2019 CALCIUM 8.4 (L) 11/11/2019 SODIUM 138 11/11/2019 POTASSIUM 3.4 11/11/2019 CO2 31 11/11/2019 CHLORIDE 96 (L) 11/11/2019 BUNSER 20 11/11/2019 CREATININE 0.69 11/11/2019 Lab Results Component Value Date COLORU Yellow 11/07/2019 CLARITYU Turbid (A) 11/07/2019 GLUCOSEUR Negative 11/07/2019 BILIRUBINUR Negative 11/07/2019 KETONESU Negative 11/07/2019 SPECGRAVU 1.012 11/07/2019 UROBILINOGEN 2.0 (A) 11/07/2019 CT - 11/08/19 - Cardiomegaly and small pericardial effusion Very large well-circumscribed fluid collection associated with surgical samara in the ventral abdominal wall suggesting a large seroma Marked bladder wall thickening suspicious for either chronic inflammation and/or possible neoplasm Numerous possible lytic foci in the thoracic and lumbar vertebra as noted above recommend MR imaging with and without contrast if possible Assessment /Plan Active Problems: Moderate malnutrition (CMS/HCC) Ms. Gil is a 64 yo with numerous severe co-morbidities who has a thickened bladder wall. This is such a non-specific finding that is more likely related to UTI or catheterizations; it does not independently require any intervention or studies. A urine culture is pending. I suggest urine be sent for cytology. Even if she had a cystoscopy at present, she would not be a surgical candidate. She should follow up for office cystoscopy no sooner than 2 weeks for further evaluation. * Karl Smith Jr., MD - 11/09/2019 3:12 PM CDT Unable to ambulate bedridden weakness but conscious With early sacral ulcer. Both heel showed a full thickness necrosis of the heel starting to indicate local infection, it will need debridement and sacral condition will best benefit from an early consideration of a colostomy. This was discussed and is not acceptable, but patient has no way of taking care of her bowel habits depending on her family the heel ulcers needs to be debrided exposed portion of the bone is expected. * Jennifer Putnam RN - 11/07/2019 3:11 PM CDT Images from the original note were not included. Impression: healing pressure injury-POA- original stage unknown- wound bed red, moist with periwound scarring. (2cm x 1cm x 0.5cm) scant serosanguinous exudate, no odor. Plan:applied Triad to clean wound and secured with allevyn- Change every 3 days and PRN if soiled. if unable to secure may place Triad on 4x4 and cover wound bed, remove and reapply as needed to keep clean and dry EHOB mattress, turn/toilet every 2 hours, float heels, incontinence skin care, absorbent pads Goal:Optimize healing. Prevention of breakdown. Moisture management. Pressure relief. Decrease bioburden Impression: Unstageable pressure injury to transverse sacrum- has periwound scarring suggestive of re-opened pressure injury. (5.5cm x 3.5cm ) no exudate, no odor. At risk for delayed wound healing due to DM, breast cancer, incontinence of stool, dementia Plan:applied Triad to clean wound and secured with allevyn- Change every 3 days and PRN if soiled. if unable to secure may place Triad on 4x4 and cover wound bed, remove and reapply as needed to keep clean and dry EHOB mattress, turn/toilet every 2 hours, float heels-prevalon boots in place, incontinence skin care, absorbent pads- in place Goal:Optimize healing. Prevention of breakdown. Moisture management. Pressure relief. Decrease bioburden Impression: Bilateral heels with soft black eschar- unattached edges , moderate amount foul smelling yellow exudate Dr Smith present-will schedule for debridement. Plan: betadine wet to dry daily until surgery Goal:Moisture management. Pressure relief. Decrease bioburden * Karl Smith Jr., MD - 11/07/2019 2:54 PM CDT Awake and alert unable to get up in bed and need help. Pressure ulcer to both heel area with advanced necrosis of the skin needs debridement, betadine dressing at this time applied. Early sacral pressure ulcer noted small, consider having a colostomy done at this very early stage since she is unable to help herselp during bowel movement, existing ulcer will surely get bigger in time. She is refusing at this time. Debridement of the heel ulcer at bedside. * Sharon Gonzalez RD - 11/07/2019 9:46 AM CDTAssociated Order(s): IP CONSULT TO NUTRITION SERVICES Nutrition Assessment Pt meets criteria for moderate Protein/Calorie malnutrition due to recent weight loss, physical findings (criteria present on admission)-reference ASPEN guidelines. RD Plan- start supplement Ensure High Protein tid & Emmanuel bid. ASPEN/AND Malnutrition Screening ASPEN/AND Malnutrition Screening: Chronic illness or injury mild/moderate Chronic Illness/Injury Mild/Moderate Energy Intake: (unknown) Weight Loss: 10% in 6 months(Pt with 16% body Wt loss in 4 months) Body Fat: Mild/Moderate Muscle Mass: Mild/Moderate Patient Meets Criteria for Moderate Malnutrition: Yes Subcutaneous Fat Loss Orbital Region - Surrounding the Eye: Somewhat hollow look Upper Arm Region - Triceps/Biceps: Some depth pinch but not ample Muscle Loss Muslim Region - Temporalis Muscle: Can see/feel well-defined muscle Clavicle Bone Region - Pectoralis Major, Deltoid, Trapezius Muscles: (Pt laying down- unable to assess) Clavicle and Acromion Bone Region - Deltoid Muscle: Rounded, curves at arm/shoulder/neck Reason for Assessment: Initial Nutrition Assessment and Consult/Referral Consult Received for malnutrition assessment Encounter Date: 11/07/19 1:00 PM Nutrition Assessment and Plan: Patient is a 64 y.o. female. Admit Dx: SEPSIS. Admitted on 11/06/2019, current LOS is 0 days. Impression: Pt is A&O x 1 [facility] -Pt briefly awoke for RD visit, but did not respond to questions, and quickly drifted off to sleep -PO intake 25% x 1 is inadequate. Adding Ensure High Protein with meals GI: abdo distended -Pt has increased nutrient needs from bilateral heels and sacral area wounds- will send Emmanuel bid. -Review of Wt history shows 16.3% body Wt loss over 4 months (this is clinically significant). + moderate fat wasting noted. Weight 80.9 kg (178 lb 5.6 oz) 07/17/2019 1:35 AM CDT Wt Readings from Last 3 Encounters: 11/07/19 68 kg (149 lb 14.6 oz) 06/21/18 95.3 kg (210 lb) 06/12/18 95.3 kg (210 lb) Current diet order: Adult Diet Modified Consistency; Mechanical Soft; Consistent Carb 1600 federico Pt intake is inadequate. PO intakes: 25% x 1 NUTRITION DIAGNOSIS #1: Nutrition Diagnosis 1: Malnutrition - Moderate Related to: Food choices, Loss of appetite, Increased needs(Probable) Evidenced by: Physical finding, Subcutaneous fat loss, Weight loss(wounds. 16% Wt loss in 4 months) Interventions: Medical food supplement, Regular weights(Adding Ensure High Protein with meals) Monitoring and Evaluation: Appetite, Discharge plans, Supplement tolerance, PO intake, Labs, Plan of care, Weight changes, Blood glucoses Goals: Oral intake to meet 75% estimated nutritional needs by next assessment, Prevent further unintended weight loss during admission, Tolerance of medical food supplement by next assessment NUTRITION DIAGNOSIS #2 Nutrition Diagnosis 2: Increased nutrient needs (protein)Related to: WoundsEvidenced by: Physical finding(Bilateral heels and sacral wounds per chart) Interventions: Medical food supplement(Adding Emmanuel bid) Monitoring and Evaluation: Appetite, Discharge plans, GI output, Supplement tolerance, Stool patterns, PO intake, Plan of care, Labs, Weight changes, Wound healing Goals: Oral intake to meet 75% estimated nutritional needs by next assessment, Tolerance of medicalfood supplement by next assessment Estimated needs: ?? Total Kcal/kg Estimated Needs : 1700 based on Kcal/k. Type of Weight Used for Estimated Kcals: Current ?? Total Protein Estimated Needs (gm): 81.6 Protein Needs Based on g/k.2 Type of Weight Used for Estimated Protein : Current. ?? Total Fluid Estimated Needs: 1700 Fluid Needs Based on : 1 ml/kcal. Objective Anthropometrics Weight: 68 kg (149 lb 14.6 oz) Admission Weight : 68 kg Weight Change: -0.03 kg (-0.08 lbs) IBW/kg (Calculated) : 49.9 kg Height: 157.5 cm (5' 2.01 ) Weight in (lb) to have BMI = 25: 136.4 BMI (Calculated): 27.4 BMI Classification: BMI 25.0 - 29.9 Overweight 3 Day I/O Summary 11/04 1900 - 11/06 0659 In: 1100 Out: - Temp: 36.6 ??C (97.9 ??F) Past Medical History: Diagnosis Date ??? Dementia (CMS/HCC) ??? Diabetes mellitus (CMS/HCC) ??? Hypertension Medications and Lab Review: Scheduled Meds: amLODIPine, 10 mg, oral, Daily aspirin, 325 mg, oral, Daily atorvastatin, 40 mg, oral, Nightly chlorthalidone, 25 mg, oral, Daily enoxaparin, 30 mg, subcutaneous, Daily-2100 gabapentin, 300 mg, oral, TID insulin glargine, 15 Units, subcutaneous, QAM insulin lispro, 1-2 Units, subcutaneous, Nightly insulin lispro, 1-3 Units, subcutaneous, TID with meals levothyroxine, 50 mcg, oral, Daily - [address], 40 mg, oral, Daily piperacillin-tazobactam, 3.375 g, intravenous, Q8H polyethylene glycol, 17 g, oral, Daily sodium chloride 0.9%, 0.5-20 mL, intra-catheter, Q8H KASIE [START ON 11/08/2019] vancomycin, 1,000 mg, intravenous, Q24H Continuous Infusions: Sodium Date Value Ref Range Status 11/07/2019 135 135 - 145 mmol/L Final Potassium, pl Date Value Ref Range Status 11/07/2019 3.4 3.3 - 4.9 mmol/L Final BUN Date Value Ref Range Status 11/07/2019 33 (H) 8 - 25 mg/dL Final Creatinine Date Value Ref Range Status 11/07/2019 0.96 0.60 - 1.10 mg/dL Final Albumin Date Value Ref Range Status 11/07/2019 2.6 (L) 3.5 - 5.0 g/dL Final Calcium Date Value Ref Range Status 11/07/2019 8.5 8.5 - 10.3 mg/dL Final Lab Results Component Value Date HGBA1C 13.9 (H) 06/21/2018 Lab Results Component Value Date GLUCOSE 209 (H) 11/07/2019 GLUCOSE 197 11/07/2019 GLUCOSE 151 11/07/2019 GLUCOSE 210 (H) 11/06/2019 Nursing Assessment: Last BM Date: 11/06/19 Bowel Sounds (All Quadrants): Present Grayson Scale Score: (P) 10 Skin Integrity: (P) Other (Comment)(wounds) Type of Wound (LDA): Pressure ulcer/Pressure Injury Diet Instructions Dietitian recommends consistent carbohydrate diet on discharge. Choose soft foods that are easy to chew as needed. Read the nutrition facts label on packages for serving size and eat 45-60 grams of carbohydrates per meal. Eat 3 meals per day, try to eat at regular times. Limit concentrated sweets/desserts, cookies, cake, candy, ice cream, and sweetened beverages (regular soda, lemonade, gatorade, and sweet tea). Monitor blood sugars and take medications as directed by your doctor. Additional resources available from the [place] [employer] can be found at www.diabetes.org/nutrition Recommend to continue drinking Emmanuel two times per day for 30 days or until your wound is healed. Emmanuel can be purchased at [employer] or on [employer]. If you order on [employer], you may save $15 on any one (1) Emmanuel multipack with code: [id number]. Instructions: mix the packet of Emmanuel with 8-10 fluid ounces of water, diet clear soda, or whichever beverage you prefer. Once mixed, it must be consumed within 24 hours. Continue to include high sources of protein (chicken, turkey, peanut butter, nuts, beans, fish, eggs, cheese, Romanian yogurt, etc.) in your diet to fire and safety helper in wound healing. Additional information is available online at www.Expandly Drink Ensure High Protein or Glucerna 1-2 times daily if your appetite/meal intakes are poor. Call [facility] Dietitian's office at [phone] for questions about your diet. Nutrition Follow-Up : 11/11/[address],LD * Markel Bourgeois MD - 11/07/2019 8:26 AM CDT Images from the original note were not included. Infectious Disease Consult Consulting Physician: HPI: Patient is a 64 y.o. female with multiple medical problems including a history of dementia, diabetes mellitus was admitted to the hospital on 11/05 for a nonhealing right heel wound. Patient lives [facility]. In the ER the patient had a sodium of 134, creatinine of 1.0. Her white cell count was elevated at 19.3. Patient did undergo a set of blood cultures which are currently growing out gram-negative bacilli in 2/2 sets.. A x-ray of her right heel show calcaneal osteomyelitis. Patient was seen by General surgery possible debridement. We are being asked to this patient for the above reasons. PMH: ??? Dementia (CMS/HCC) ? Diabetes mellitus (CMS/HCC) ? Hyperlipidemia ? Hypothyroidism ? Neuropathy ? PVD ? Chronic wounds ? Hypertension ? PAST SURGICAL HISTORY ?? Past Surgical History: Procedure Laterality Date ??? HERNIA REPAIR ? BREAST SURGERY Bilateral ??? KNEE SURGERY Right ??? REMOVAL OF OVARY(S) Left ??? UPPER ARM/ELBOW SURGERY UNLISTED Right Med: Current Facility-Administered Medications Medication Dose Route Frequency Provider Last Rate Last Dose ??? amLODIPine (NORVASC) tablet 10 mg 10 mg oral Daily Zack Johnson NP ??? aspirin tablet 325 mg 325 mg oral Daily Zack Johnson NP ??? atorvastatin (LIPITOR) tablet 40 mg 40 mg oral Nightly Zack Johnson NP ??? chlorthalidone tablet 25 mg 25 mg oral Daily Zack Johnson NP ??? dextrose oral liquid liquid 15 g 15 g oral Q15 Min PRN Zack Johnson NP Or ??? dextrose (D10W) 10% bolus 250 mL 250 mL intravenous Q15 Min PRN Zack Johnson NP ??? docusate sodium (COLACE) capsule 100 mg 100 mg oral BID PRN Sina Schilling MD ??? enoxaparin (LOVENOX) syringe 30 mg 30 mg subcutaneous Daily-2100 Zack Johnson NP ??? gabapentin (NEURONTIN) capsule 300 mg 300 mg oral TID Zack Johnson NP ??? glucagon injection 1 mg 1 mg intramuscular Q30 Min PRN Zack Johnson NP ??? insulin glargine (LANTUS) injection 15 Units 15 Units subcutaneous QAM Zack Johnson NP 15 Units at 11/07/19 0823 ??? insulin lispro (HumaLOG, ADMELOG) injection 1-2 Units 1-2 Units subcutaneous Nightly Zack Johnson NP ??? insulin lispro (HumaLOG, ADMELOG) injection 1-3 Units 1-3 Units subcutaneous TID with meals Zack Johnson NP ??? levothyroxine (SYNTHROID) tablet 50 mcg 50 mcg oral Daily - 0600 Zack Johnson NP 50 mcg at11/07/19 0603 ??? ondansetron ODT (ZOFRAN-ODT) disintegrating tablet 4 mg 4 mg oral Q6H PRN Sina Schilling MD Or ??? ondansetron (ZOFRAN) injection 4 mg 4 mg intravenous Q6H PRN Sina Schilling MD ??? pantoprazole DR (PROTONIX) extended release tablet 40 mg 40 mg oral Daily Zack Johnson NP ??? piperacillin-tazobactam (ZOSYN) 3.375 g in sodium chloride 0.9% 100 mL IVPB 3.375 g [id number] Yoandy Grullon MD 200 mL/hr at 11/07/19 0331 3.375 g at 11/07/19 0331 ??? polyethylene glycol (MIRALAX) packet 17 g 17 g oral Daily Zack Johnson NP ??? sodium chloride 0.9% flush 0.5-20 mL 0.5-20 mL intra-catheter Q8H KASIE Sina Schilling MD 10mL at 11/07/19 0604 ??? sodium chloride 0.9% flush 0.5-20 mL 0.5-20 mL intra-catheter PRN Sina Schilling MD ??? [START ON 11/08/2019] vancomycin 1,000 mg/200 mL in dextrose 5% (premix) 1,000 mg 1,000 mg intravenous Q24H Zack Johnson NP Allergies: 1. Codeine the SH: Patient lives at [facility] in [place]. FH: Family History Problem Relation Age of Onset ??? Diabetes Mother ??? Heart disease Father ??? No Known Problems Sister ??? Diabetes Brother ??? No Known Problems Daughter ??? No Known Problems Son ??? No Known Problems Son ??? No Known Problems Son Immunosuppressive Medications: amLODIPine, atorvastatin, donepeziL, furosemide, insulin glargine, lisinopriL, metFORMIN, potassiumchloride ER, pregabalin, and rOPINIRole Review of Systems: Gen: denies fevers, denies chills, denies sweats, denies unintentional weight loss HEENT: Denies sore throat, denies thrush Neck: Denies palpable lymph nodes, denies neck stiffness Cv: denies chest pain, denies palpitations Resp: Denies SOB, Denies orthopnea Gi: Denies abdominal pain, Denies diarrhea, denies n/v Extrem: Denies gross deformities, denies joint pain, denies myalgias Skin: Denies rashes, denies lesions Neuro: Denies weakness, denies paresthesias, denies memory loss Psych: denies depression, denies anxiety Objective: Vitals: 24hr Min/Max: Temp Min: 36.7 ??C (98 ??F) Max: 37.3 ??C (99.1 ??F) Pulse Min: 79 Max: 96 BP Min: 121/67 Max: 173/108 Resp Min: 18 Max: 20 SpO2 Min: 99 % Max: 100 % Most Recent : Vitals: 11/06/19 2330 11/07/19 0042 11/07/19 0051 11/07/19 0752 BP: (!) 131/105 132/72 121/67 BP Location: Left arm Patient Position: Lying Pulse: 93 91 79 Resp: 18 20 Temp: 37.3 ??C (99.1 ??F) 37.2 ??C (99 ??F) TempSrc: Oral SpO2: 100% 100% 99% Weight: 68 kg (149 lb 14.6 oz) Height: Physical Exam: General appearance: alert, cooperative, no distress HEENT: (-)icterus, Oropharnyx is dry Neck: No palpable LN Lungs: breath sounds normal and symmetric; minimal respiratory effort, no r/w/c Heart: regular rhythm, normal S1 and S2, no m/r/g Abdomen: soft without mass, non-tender, +bowel sounds, no HSM Skin: (-)new rashes, necrotic ulcerations bilaterally on heels. MSK: no gross deformities, FROM Vascular: no Edema, Neuro: No 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 Psych: Flat affect Lab/Radiology/Diagnostic Review: Reviewed. Recent Labs Lab Units 11/06/191905 WBC K/cumm 19.3* HEMOGLOBIN g/dL 7.8* HEMATOCRIT % 24.1* PLATELETS K/cumm 483* Recent Labs Lab Units 11/06/191905 BUN SERUM mg/dL 39* CREATININE mg/dL 1.07 Lab Results Component Value Date ALT 63 (H) 11/06/2019 AST 67 (H) 11/06/2019 ALKPHOS 46 11/06/2019 BILITOT 0.5 11/06/2019 Cultures 11/05 BC 2/2 with Gram-negative bacilli 11/06 UC 11/06 x-ray of the right foot Positive calcaneal osteo Assessment: 1. Right heel ulcer the with osteo 2. Diabetes mellitus 3. Dementia 4. Leukocytosis 5. Gram-negative bacteremia 6. Left heel ulcer Plan: 1. Continue IV vanc and Zosyn 2. Check arterial Dopplers 3. Patient scheduled to get debridement by General surgery would recommend getting cultures and follow 4. Check CT scan of the abdomen and pelvis secondary to Gram-negative bacteremia 5. Repeat blood cultures x2 6. Continue supportive care Thank you for letting me participate in this patient's care, will follow with you. Markel Bourgeois MD 11/07/2019 documented in this encounter Nursing Notes * Rebecca Romeo RN - 11/19/2019 11:29 AM CDT PICC line placed to RIC via brachial vein, good blood return as lumen flushes with ease. Placement verified via 3CG System Signals. * Brenda Arita RN - 11/19/2019 8:47 AM CDT Attempted to reach pt's son for pt to speak to over the phone and went straight to voicemail. I left a message with call back numbers directly to the pt room and the number to the unit. Brenda Arita RN * Brenda Arita RN - 11/14/2019 6:31 PM CDT Attempted to contact pt son, Braulio Turner. No answer, I left a message stating that the pt was trying to contact him and left a call back number. Brenda Arita RN * Lety Olguin RN - 11/10/2019 4:05 PM CDT COVID-19 swab returned with presumptive positive result. Request entered to transfer to 7th floor. customer operations specialist Debbie and Dr. Whittaker informed. documented in this encounter ED Notes * Sina Schilling MD - 11/06/2019 5:41 PM CDT Images from the original note were not included. HPI Chief Complaint Patient presents with ??? Wound Check 5:41 PM - Iris Gil is a 64 y.o. female patient with a history of HTN, DM, dementia, [facility] of wounds to bilateral heels and buttocks. The patient also complains of bilateral leg pain. Per triage note, the patient has dressing applied to the wounds and wounds are currently free of drainage. The patient denies fever, chills and myalgias. No other complaints at this time. No EMS note available if applicable Patient History Past Medical History: Diagnosis Date ??? Dementia [...] Alcohol use: No ??? Drug use: No Review of Systems Review of Systems Constitutional: Negative for chills and fever. Musculoskeletal: Negative for myalgias. Skin: Positive for wound. All other systems reviewed and are negative. Physical Exam ED Triage Vitals [11/06/19 1632] Temp Pulse Resp BP SpO2 36.7 ??C (98 ??F) 88 18 122/93 99 % Temp src Heart Rate Source Patient Position BP Location FiO2 (%) Axillary -- -- -- -- Physical Exam Constitutional: General: She is not in acute distress. Appearance: She is cachectic. She is ill-appearing. Eyes: General: Lids are normal. Conjunctiva/sclera: Conjunctivae normal. Neck: Musculoskeletal: Decreased range of motion. Cardiovascular: Rate and Rhythm: Normal rate and regular rhythm. Pulmonary: Effort: Pulmonary effort is normal. Breath sounds: Decreased breath sounds present. Abdominal: General: Bowel sounds are decreased. Neurological: Mental Status: She is alert. Comments: Patient can't cooperate with a formal exam. No new deficits noted Procedures MDM Labs Reviewed CBC WITH AUTO DIFFERENTIAL - Abnormal Result Value WBC 19.3 (*) Hgb 7.8 (*) Hct 24.1 (*) Plt 483 (*) MPV 9.6 RBC 2.64 (*) MCV 91.3 MCH 29.5 MCHC 32.4 RDW CV 14.6 RDW SD 49.1 (*) NRBC abs 0.00 COMPREHENSIVE METABOLIC PANEL - Abnormal Sodium 134 (*) Potassium, pl 4.1 Chloride 88 (*) CO2 31 Anion gap 15 BUN 39 (*) Creatinine 1.07 Glucose 210 (*) Calcium 9.1 Bilirubin, total 0.5 Protein, pl 8.5 Albumin 3.1 (*) Alk phos 46 ALT 63 (*) AST 67 (*) SEPSIS LACTATE WITH REFLEX - Abnormal Sepsis Lactate 2.3 (*) DIFFERENTIAL AUTO - Abnormal Neutrophil abs 17.4 (*) Imm gran abs 0.2 (*) Lymphocyte abs 1.0 Monocyte abs 0.6 Eosinophil abs 0.1 Basophil abs 0.1 Neutrophil pct 90.1 Imm gran pct 0.9 Lymphocyte pct 5.1 Monocyte pct 3.1 Eosinophil pct 0.5 Basophil pct 0.3 BLOOD CULTURE BLOOD CULTURE EGFR GFR 55 SEPSIS LACTATE WITH REFLEX SEPSIS LACTATE WITH REFLEX XR Foot Left 3 or More Views (Results Pending) XR Foot Right 3 or More Views (Results Pending) BP (!) 173/108 Pulse 96 Temp 36.7 ??C (98 ??F) (Axillary) Resp 20 Ht 157.5 cm (5' 2 ) Wt 68 kg (150 lb) SpO2 100% BMI 27.44 kg/m?? MDM ED Course as of Nov 05 2300 Time: 11/05 2108 Comment: Case discussed with PA watermelon harvesting supervisor for Dr. Whittaker, [facility]. Time discussed: 2108 HPI, physical exam, labs, radiographic evaluation, medications/interventions, EKG (if done), EMS note (if available) were discussed. Dr. Whittaker agrees to accept care of the patient at this time. Interim/bridging admission orders reviewed and agreed upon. Furthermore, the floor where the patient was admitted to and the consultants were agreed upon. Nursing notes reviewed as of this entry. EMS note (if available) has been reviewed. By: Zuleika Gil Time: 11/05 2110 Comment: Right and left foot XR shows subcutaneous emphysema in the heel area By: Zuleika Gil Impression: Gangrene ([facility]) Sepsis ([facility]) 8:46 PM: This note is prepared by Zuleika Gil, acting as a scribe for Sina Schilling MD. I electronically signed this note at 8:46 PM on 11/06/2019. I, Sina Schilling MD, have personally performed the services described in the documentation , reviewed the documentation, as recorded by the scribe in my presence, and it accurately and completely records my words and actions. Sina Schilling MD 11/12/19 3497 * Tressa Jones, RN - 11/06/2019 4:34 PM CDT Pt to RM 2 from [facility] in [place]. EMS states the account installation specialist at the [facility] wanted the pttransported to this ER for evaluation of wounds. Pt is A&O x 3 upon arrival to the ER, baselineper EMS. Pt states she is unsure why they sent her to the ER. Pt has bandages noted to bilateral feet dated today, bandages are free of drainage at this time. * Serg Lu RN - 11/06/2019 4:27 PM CDT Bed: ED03 Expected date: 11/06/19 Expected time: Means of arrival: Comments: [facility]. 64 [facility] Serg Lu RN 11/06/19 1627 documented in this encounter Miscellaneous Notes * Plan of Care - Edie Hooks LPN - 11/20/2019 9:00 PM CDT Goals: Clinical Goals for the Shift: monitor vitals, maintain safety and comfort. discharge to [facility] Summary: [facility] discharged to [facility]. Report called to nurse Nash. Ems has arrived and patient is transported to facility. Left message informing patients son and daughter that patient has been discharged. Patient vitals stable and she denied any c/o pain or discomfort. Problem: Health Behavior: Goal: Understanding of discharge needs will improve Outcome: Adequate for Discharge Problem: Lack of Knowledge: Goal: Ability to state ways to decrease the risk of falls will improve Outcome: Adequate for Discharge Problem: Safety: Goal: Will remain free from falls Outcome: Adequate for Discharge Goal: Will remain free from injury from falls Outcome: Adequate for Discharge Goal: Will remain free from falls and injury in home environment Outcome: Adequate for Discharge Problem: Activity: Goal: Mobility will improve Outcome: [...] extent possible Outcome: Adequate for Discharge Problem: Lack of Knowledge: Goal: Verbalization of understanding the information provided will improve Outcome: Adequate for Discharge Problem: Physical Regulation: Goal: Complications related to the disease process, condition or treatment will be avoided or minimized Outcome: Adequate for Discharge * Plan of Care - Vandana Rider MSW - 11/20/2019 4:44 PM CDT Lilian left message for pt's son Alisson and for pt's dtr Ailyn regarding d/c, amb at 8:30pm unless earlier time becomes available. BELA López, ACM-SW [phone] * Provider Query - Reji Whittaker MD - 11/20/2019 11:07 AM CDT Specify the ulcers/wounds and document in the medical record and on the form below. There is conflicting information between Physician and Wound/Ostomy documentation regarding Stagingof Ulcers. . #1) Sacral Decubitus/Pressure Injury to Sacrum POA: ____Unstageable pressure injury to transverse sacrum _x___Stage 4 sacral decubitus ulcer ____Early sacral pressure ulcer noted, small. ____Other (Specify in medical record and below). ____Unable to determine. #2) Bilateral Heel Ulcers POA: ____ Bilateral heels with soft black eschar- unattached edges, moderate amount foul smelling yellowexudate. __x__ Gangrenous Wounds to bilateral Heels, Stage 2 __x__ Pressure Ulcer to both heel areas, with advanced necrosis of skin. ____ Other (specify in medical record and below) ____ Unable to determine Additional Provider Response: Clinical Indicators/Treatments: H&P Team Health (FRANCY Johnson) 11/07/2019: Patient has gangrenous wounds to bilateral heels andsacral area. Progress Notes (Panfilo) 11/07/2019: Exam: Stage 4 sacral decubitus ulcers. Bilateral stage 2 heelulcers. Assessment: gangrenous wounds to bilateral heels and sacral area CONSULT Surgery (Sarah) 11/07/2019: Early sacral pressure ulcer noted small. Consider having a colostomy done at this very early stage. Since she is unable to help herself during bowel movement, existing ulcer will surely get bigger intime. She is refusing at this time. Pressure ulcers to both heel areas, with advanced necrosis of the skin. Both heels showed a full thickness necrosis of the heels, starting to indicate local infection. Needs debridement of heels. 11/09/2019: Debridements and early consideration of colostomy was discussed, and is not acceptable. Patient has no way of taking care of her bowel habits, depends of family. The heel ulcers needs to be debrided, exposed portion of the bone is expected CONSULT Wound Ostomy 11/07/2019: (Photograph and documentation). ##1) Unstageable pressure injury to transverse sacrum- has periwound scarring suggestive of re-opened pressure injury. (5.5cm x 3.5cm ), no exudate, no odor. At risk for delayed wound healing due to DM, breast cancer, incontinence of s tool, dementia. ##2) Bilateral heels with soft black eschar- unattached edges , moderate amount foul smelling yellow exudate. Plan: betadine wet to dry daily until surgery Goal:Moisture management. Pressure relief. Decrease bioburden. Use of terms such as likely, suspected, possible, or probable (associated with a specific diagnosisthat is being evaluated, monitored, or treated as if it exists) are acceptable and can be coded in the inpatient setting when documented at the time of discharge. This documentation will become part of the patient???s medical record. Thank you, Tiffani Anguiano R.N., CCDS Certified Clinical Tear Down Matcher [email or web address] * Plan of Care - Edie Hooks LPN - 11/20/2019 3:29 AM CDT Goals: Clinical Goals for the Shift: monitor labs and vitals. maintain comfort and safety Summary: Patient resting in bed. Denies c/o pain or discomfort. Chg bath given. Q 2 turns. Will continue to monitor patient and continue with plan of care Problem: Health Behavior: Goal: Understanding of discharge needs will improve Outcome: Progressing Problem: Lack of Knowledge: Goal: Ability to [...] to fullest extent possible Outcome: Progressing Problem: Lack of Knowledge: Goal: Verbalization of understanding the information provided will improve Outcome: Progressing Problem: Physical Regulation: Goal: Complications related to the disease process, condition or treatment will be avoided or minimized Outcome: Progressing * Plan of Luz - Brenda Arita RN - 11/19/2019 7:02 PM CDT Problem: Health Behavior: Goal: Understanding of discharge needs will improve Outcome: Progressing Problem: Lack of Knowledge: Goal: Ability to [...] to fullest extent possible Outcome: Progressing Problem: Lack of Knowledge: Goal: Verbalization of understanding the information provided will improve Outcome: Progressing Problem: Physical Regulation: Goal: Complications related to the disease process, condition or treatment will be avoided or minimized Outcome: Progressing Goals: Clinical Goals for the Shift: maintain safe enviroment, wound care, monitor v/s and labs, manage blood sugar Summary:pt denies pain and sob. Pt received picc line today for jail antibiotics. Continue to monitor pt. Brenda Arita RN * Plan of Care - Vandana Rider MSW - 11/19/2019 2:08 PM CDT S/w pt's son Braulio who referred sw to his brother Alisson, ph # [phone]. Sw called and s/w Elena referred sw to his sister Ailyn. Per Morgankashmir Ailyn is to make the decision whether pt would return home to pt's home with the assist of Ailyn. Sw reached out to Ailyn, ph # [phone], to discuss d/c plans. Sw also discussed pt's need for 6 weeks of iv abx and wound care. Per dtr pt didn't have wounds on her heels, she had a wound on her bottom and on her inner thigh but not her heels. She doesn't want her mom to return to [facility]. Per Ailyn pt had been at [facility] almost 100 days. Theywere just at the point to start charging for pt's stay. Dtr is open to looking into LTAC for pt forthe abx and wound care. Per Ailyn pt had been at a facility, thinks it was [facility] in [facility]. She is ok with looking into ltacs in [place]. Discussed LTAC options, and ok with looking into [facility]. Referral made per [facility]. S/w Christina with [facility] and she will review pt's case and reach out to family. Ailyn's eventual goal is for pt to return to her home and dtr to assist. BELA López, [facility]- [phone] * [facility] Note - Vandana Rider MSW - 11/19/2019 2:01 PM CDT Patient Information: Meds and Admin Active Only All Meds/Most Recent Administrations piperacillin-tazobactam (ZOSYN) 3.375 g in sodium chloride 0.9% 100 mL IVPB [[id number]] Ordering Provider: Sina Schilling MD Status: Completed (Past End Date/Time) Ordered On: 11/06/191853 Starts/Ends: 11/06/191853 - 11/06/192004 Dose (Remaining/Total): 3.375 g (0/1) Route: intravenous Frequency: Once Rate/Duration: 200 mL/hr / 30 Minutes Admin Instructions: Mini-Bag Plus bag Timestamps Action Dose / Rate / Duration Route Other Information 11/06/191934 New Bag 3.375 g 200 mL/hr 30 Minutes intravenous Performed by: Holly Caba RN Scanned Package: [id number], 1428-9159-73 sodium chloride 0.9% flush 0.5-20 mL [[id number]] Ordering Provider: Sina Schilling MD Status: Verified Ordered On: 11/07/1949 Start: 11/07/19129 Dose (Remaining/Total): 0.5-20 mL (--/--) Route: intra-catheter Frequency: Every 8 hours scheduled Rate/Duration: -- / -- Admin Instructions: Flush volume based on line type and size. Timestamps Action Dose Route Other Information 11/19/19826 Given 10 mL intra-catheter Performed by: Brenda Arita RN Scanned Package: [id number] sodium chloride 0.9% flush 0.5-20 mL [[id number]] Ordering Provider: Sina Schilling MD Status: Verified Ordered On: 11/07/1949 Start: 11/07/1949 Dose (Remaining/Total): 0.5-20 mL (--/--) Route: intra-catheter Frequency: As needed Rate/Duration: -- / -- Admin Instructions: Flush volume based on line type and size. Flush before and after each use. (No admins recorded for this medication) ondansetron ODT (ZOFRAN-ODT) disintegrating tablet 4 mg [[id number]] Ordering Provider: Sina Schilling MD Status: Verified Ordered On: 11/07/1949 Start: 11/07/1949 Dose (Remaining/Total): 4 mg (--/--) Route: oral Frequency: Every 6 hours PRN Rate/Duration: -- / -- (No admins recorded for this medication) ondansetron (ZOFRAN) injection 4 mg [[id number]] Ordering Provider: Sina Schilling MD Status: Verified Ordered On: 11/07/1949 Start: 11/07/1949 Dose (Remaining/Total): 4 mg (--/--) Route: intravenous Frequency: Every 6 hours PRN Rate/Duration: -- / 2 Minutes (No admins recorded for this medication) docusate sodium (COLACE) capsule 100 mg [[id number]] Ordering Provider: Sina Schilling MD Status: Dispensed Ordered On: 11/07/1949 Start: 11/07/1949 Dose (Remaining/Total): 100 mg (--/--) Route: oral Frequency: 2 times daily PRN Rate/Duration: -- / -- Timestamps Action Dose Route Other Information 11/15/192025 Given 100 mg oral Performed by: Lissa Hernandez RN Scanned Package: 3717-3074-81 sodium chloride 0.9% bolus 1,000 mL [[id number]] Ordering Provider: Sina Schilling MD Status: Completed (Past End Date/Time) Ordered On: 11/06/192107 Starts/Ends: 11/06/192108 - 11/06/192227 Dose (Remaining/Total): 1,000 mL (0/1) Route: intravenous Frequency: Once Rate/Duration: 1,000 mL/hr / 1 Hours Line Med Link Info Comment Peripheral IV 11/06/19 18 G Right Arm 11/06/192127 by Holly Caba RN -- Timestamps Action Dose / Rate / Duration Route Other Information 11/06/192127 New Bag 1,000 mL 1,000 mL/hr 1 Hours intravenous Performed by: Holly Caba RN Scanned Package: 4896-2231-42 amLODIPine (NORVASC) tablet 10 mg [[id number]] Ordering Provider: Zack Johnson NP Status: Dispensed Ordered On: 11/07/197 Start: 11/07/19 09 Dose (Remaining/Total): 10 mg (--/--) Route: oral Frequency: Daily Rate/Duration: -- / -- Timestamps Action Dose Route Other Information 11/19/1925 Given 10 mg oral Performed by: Brenda Arita RN Scanned Package: 2585-6657-35 atorvastatin (LIPITOR) tablet 40 mg [[id number]] Ordering Provider: Zack Johnson NP Status: Dispensed Ordered On: 11/07/19 0027 Start: 11/07/19 2100 Dose (Remaining/Total): 40 mg (--/--) Route: oral Frequency: Nightly Rate/Duration: -- / -- Timestamps Action Dose Route Other Information 11/18/191938 Given 40 mg oral Performed by: Reza Barahona RN Scanned Package: 8516-4953-02 aspirin tablet 325 mg [[id number]] Ordering Provider: Zack Johnson NP Status: Dispensed Ordered On: 11/07/1949 Start: 11/07/19 09 Dose (Remaining/Total): 325 mg (--/--) Route: oral Frequency: Daily Rate/Duration: -- / -- Timestamps Action Dose Route Other Information 11/19/19824 Given 325 mg oral Performed by: Brenda Arita RN Scanned Package: 33786-454-93 chlorthalidone tablet 25 mg [[id number]] Ordering Provider: Zack Johnson NP Status: Dispensed Ordered On: 11/07/1949 Start: 11/07/19 0900 Dose (Remaining/Total): 25 mg (--/--) Route: oral Frequency: Daily Rate/Duration: -- / -- Timestamps Action Dose Route Other Information 11/19/19824 Given 25 mg oral Performed by: Brenda Arita RN Scanned Package: 42295-744-[address] (PROTONIX) extended release tablet 40 mg [[id number]] Ordering Provider: Zack Johnson NP Status: Dispensed Ordered On: 11/07/1949 Start: 11/07/19 0900 Dose (Remaining/Total): 40 mg (--/--) Route: oral Frequency: Daily Rate/Duration: -- / -- Admin Instructions: Do not crush, chew, cut, dissolve, open or otherwise manipulate tablet/capsule. Timestamps Action Dose Route Other Information 11/19/19824 Given 40 mg oral Performed by: Brenda Arita RN Scanned Package: 78812-128-47 polyethylene glycol (MIRALAX) packet 17 g [[id number]] Ordering Provider: Zack Johnson NP Status: Dispensed Ordered On: 11/07/1949 Start: 11/07/19899 Dose (Remaining/Total): 17 g (--/--) Route: oral Frequency: Daily Rate/Duration: -- / -- Timestamps Action Dose Route Other Information 11/19/19824 Given 17 g oral Performed by: Brenda Arita RN Scanned Package: 7223-5659-81 levothyroxine (SYNTHROID) tablet 50 mcg [[id number]] Ordering Provider: Zack Johnson NP Status: Dispensed Ordered On: 11/07/1949 Start: 11/07/19599 Dose (Remaining/Total): 50 mcg (--/--) Route: oral Frequency: Daily (early AM) Rate/Duration: -- / -- Admin Instructions: Administer on an empty stomach, preferably 30 minutes before breakfast. Take 4 hours apart from antacids, iron and calcium products. Timestamps Action Dose Route Other Information 11/19/19608 Given 50 mcg oral Performed by: Reza Barahona RN Scanned Package: 52420-710-47 gabapentin (NEURONTIN) capsule 300 mg [[id number]] Ordering Provider: Zack Johnson NP Status: Dispensed Ordered On: 11/07/1949 Start: 11/07/19899 Dose (Remaining/Total): 300 mg (--/--) Route: oral Frequency: 3 times daily Rate/Duration: -- / -- Timestamps Action Dose Route Other Information 11/19/19824 Given 300 mg oral Performed by: Brenda Arita RN Scanned Package: 0726-5712-54 vancomycin (VANCOCIN) 1,750 mg in sodium chloride 0.9% 500 mL IVPB [[id number]] Ordering Provider: Zack Johnson NP Status: Completed (Past End Date/Time) Ordered On: 11/07/19 005 Starts/Ends: 11/07/19 0130 - 11/07/19 0526 Dose (Remaining/Total): 1,750 mg (0/1) Route: intravenous Frequency: Once Rate/Duration: 258.8 mL/hr / 120 Minutes Timestamps Action Dose / Rate / Duration Route Other Information 11/07/19 0326 New Bag 1,750 mg 258.8 mL/hr 120 Minutes intravenous Performed by: Ludmila Casas RN hydrALAZINE (APRESOLINE) tablet 25 mg [[id number]] Ordering Provider: Zack Johnson NP Status: Completed (Past End Date/Time) Ordered On: 11/07/1952 Starts/Ends: 11/07/19129 - 11/07/19 020 Dose (Remaining/Total): 25 mg (01) Route: oral Frequency: Once Rate/Duration: -- / -- Timestamps Action Dose Route Other Information 11/07/19 020 Given 25 mg oral Performed by: Ludmila Casas RN sodium chloride 0.9% IVPB 0-250 mL [[id number]] Ordering Provider: Reji Whittaker MD Status: Verified (Past End Date/Time) Ordered On: 11/07/191749 Starts/Ends: 11/07/191829 - 11/08/191829 Dose (Remaining/Total): 0-250 mL (03/13) Route: intravenous Frequency: Once Rate/Duration: -- / -- Admin Instructions: Prime blood tubing and administer amount needed to clear line (usually 50-100 mL) after transfusion complete. (No admins recorded for this medication) sodium chloride 0.9% 0.9% infusion - ADS Override Pull [[id number]] Status: Completed (Past End Date/Time) Ordered On: 11/08/19113 Starts/Ends: 11/08/19113 - 11/08/19244 Dose (Remaining/Total): -- (01) Route: -- Frequency: -- Rate/Duration: -- / -- Admin Instructions: Created by cabinet override Note to pharmacy: Created by cabinet override Timestamps Action Dose Route / Site / Linked Line Other Information 11/08/19 0245 New Bag 500 mL -- Performed by: Rebecca Ortega, RN Comments: pulled for use with blood transfusion Scanned Package: 4348-0428-07 enoxaparin (LOVENOX) syringe 40 mg [[id number]] Ordering Provider: Reji Whittaker MD Status: Dispensed Ordered On: 11/08/19 1443 Start: 11/08/19 2100 Dose (Remaining/Total): 40 mg (--/--) Route: subcutaneous Frequency: Daily (for enoxaparin) Rate/Duration: -- / -- Admin Instructions: Per [facility] Dosing and Monitoring Policy Lovenox for DVT prevention was increased to 40mg for CrCl > 30 mL/min Timestamps Action Dose Route / Site Other Information 11/18/19 1938 Given 40 mg subcutaneous Left Upper Abdomen Performed by: Reza Barahona RN Scanned Package: 95163-736-23 ioversoL (OPTIRAY 350) syringe syringe 100 mL [[id number]] Ordering Provider: Markel Bourgeois MD Status: Completed (Past End Date/Time) Ordered On: 11/08/191723 Starts/Ends: 11/08/19 1724 - 11/08/19 175 Dose (Remaining/Total): 100 mL (0/1) Route: intravenous Frequency: Once in imaging Rate/Duration: -- / -- Line Med Link Info Comment Peripheral IV 11/06/19 18 G Right Arm 11/08/19 1757 by Ramez Red RT -- Timestamps Action Dose Route Other Information 11/08/19 175 Given 97 mL intravenous Performed by: Ramez eRd, RT Scanned Package: 2596-7283-01 insulin lispro (HumaLOG, ADMELOG) injection 7 Units [[id number]] Ordering Provider: Reji Whittaker MD Status: Completed (Past End Date/Time) Ordered On: 11/09/19 1220 Starts/Ends: 11/09/19 1300 - 11/09/19 1223 Dose (Remaining/Total): 7 Units (0/1) Route: subcutaneous Frequency: Once Rate/Duration: -- / -- Timestamps Action Dose Route / Site Other Information 11/09/19 1223 Given 7 Units subcutaneous Right Lower Abdomen Performed by: Lety Olguin RN Scanned Package: 1572-2062-02 acetaminophen (TYLENOL) tablet 650 mg [[id number]] Ordering Provider: Reji Whittaker MD Status: Dispensed Ordered On: 11/09/191840 Start: 11/09/191840 Dose (Remaining/Total): 650 mg (--/--) Route: oral Frequency: Every 6 hours PRN Rate/Duration: -- / -- Timestamps Action Dose Route Other Information 11/18/19 2337 Given 650 mg oral Performed by: Reza Barahona RN dextrose oral liquid liquid 15 g [[id number]] Ordering Provider: Reji Whittaker MD Status: Verified Ordered On: 11/10/19940 Start: 11/10/19935 Dose (Remaining/Total): 15 g (--/--) Route: oral Frequency: Every 15 min PRN Rate/Duration: -- / -- Admin Instructions: If patient is alert and able to eat/drink, give 15 gm glucose or one juice (4 fluid ounces) NOT ORANGE JUICE. After treatment for hypoglycemia, recheck BG followed by treatment every 15 minutes until the BG is greater than 100 mg/dL. Then check BG 1 hour post-treatment. If BG isless than 100 mg/dL, repeat Q15 minute BG checks and treatment. Call MD for each episode of hypoglycemia. (No admins recorded for this medication) dextrose (D10W) 10% bolus 250 mL [[id number]] Ordering Provider: Reji Whittaker MD Status: Verified Ordered On: 11/10/19940 Start: 11/10/19935 Dose (Remaining/Total): 250 mL (--/--) Route: intravenous Frequency: Every 15 min PRN Rate/Duration: 1,000 mL/hr / 15 Minutes Admin Instructions: After treatment for hypoglycemia, recheck BG followed by treatment every 15 minutes until the BG is greater than 100 mg/dL. Then check BG 1 hour post treatment. If BG is less [id number] mg/dL, repeat Q15 minute BG checks and treatment. Call MD for each episode of hypoglycemia. (No admins recorded for this medication) glucagon injection 1 mg [[id number]] Ordering Provider: Reji Whittaker MD Status: Verified Ordered On: 11/10/19940 Start: 11/10/1936 Dose (Remaining/Total): 1 mg (--/--) Route: intramuscular Frequency: Every 30 min PRN Rate/Duration: -- / 1 Minutes Admin Instructions: After Glucagon is administered, position patient on side if possible to avoid aspiration. Obtain IV access. Follow glucagon treatment with glucose treatment or IV dextrose. After treatment for hypoglycemia, recheck BG followed by treatment every 15 minutes until the BG isgreater than 100 mg/dL. Then check BG 1 hour post treatment. If BG is less than 100 mg/dL, repeat Q15 minute BG checks and treatment. Call MD for each episode of hypoglycemia. (No admins recorded for this medication) insulin lispro (HumaLOG, ADMELOG) injection 1-5 Units [[id number]] Ordering Provider: Reji Whittaker MD Status: Verified Ordered On: 11/10/19940 Start: 11/10/19 1200 Dose (Remaining/Total): 1-5 Units (--/--) Route: subcutaneous Frequency: 3 times daily with meals Rate/Duration: -- / -- Admin Instructions: Blood Sugar Mid Dose meal time - PO patients 139 or less No insulin 140 - 175 1 unit 176 - 200 2 unit 201 - 250 3 units 251 - 299 5 units Greater than 299 Call MD for hyperglycemia management instructions Do NOT hold for NPO status. Timestamps Action Dose Route / Site Other Information 11/19/19 1300 Given 5 Units subcutaneous Right Lower Abdomen Performed by: Brenda Arita RN Scanned Package: 9013-5089-25 cloNIDine (CATAPRES) tablet 0.1 mg [[id number]] Ordering Provider: Reji Whittaker MD Status: Dispensed Ordered On: 11/10/191649 Start: 11/10/19 164 Dose (Remaining/Total): 0.1 mg (--/--) Route: oral Frequency: Every 6 hours PRN Rate/Duration: -- / -- Timestamps Action Dose Route Other Information 11/10/191655 Given 0.1 mg oral Performed by: Lety Olguin RN Scanned Package: 6011-2727-84 cefTRIAXone (ROCEPHIN) 2,000 mg/20 mL in sterile water (premix) 2,000 mg [[id number]] Ordering Provider: Markel Bourgeois MD Status: Dispensed Ordered On: 11/12/191421 Start: 11/12/19 1500 Dose (Remaining/Total): 2,000 mg (--/--) Route: intravenous Frequency: Every 24 hours scheduled Rate/Duration: 1,200 mL/hr / 1 Minutes Line Med Link Info Comment Peripheral IV 11/12/19 22 G Left;Posterior Hand 11/12/19 1529 by Rossana Santiago LPN -- Peripheral IV 11/15/19 22 G Posterior;Right Hand 11/16/19 0812 by Rossana Santiago LPN -- Timestamps Action Dose / Rate / Duration Route Other Information 11/19/19 0824 Given 2,000 mg 1,200 mL/hr 1 Minutes intravenous Performed by: Brenda Arita RN Scanned Package: [id number], 0849-6732-88 metroNIDAZOLE (FLAGYL) tablet 500 mg [[id number]] Ordering Provider: Markel Bourgeois MD Status: Dispensed Ordered On: 11/12/191421 Start: 11/12/19 1600 Dose (Remaining/Total): 500 mg (--/--) Route: oral Frequency: 3 times daily Rate/Duration: -- / -- Timestamps Action Dose Route Other Information 11/19/19 0825 Given 500 mg oral Performed by: Brenda Arita RN Scanned Package: [id number] insulin lispro (HumaLOG, ADMELOG) injection 10 Units [[id number]] Ordering Provider: Reji Whittaker MD Status: Completed (Past End Date/Time) Ordered On: 11/14/19 1241 Starts/Ends: 11/14/19 1315 - 11/14/19 1317 Dose (Remaining/Total): 10 Units (0/1) Route: subcutaneous Frequency: Once Rate/Duration: -- / -- Timestamps Action Dose Route / Site Other Information 11/14/19 1317 Given 10 Units subcutaneous Left Upper Arm Performed by: Brenda Arita RN potassium chloride ER (KLOR-CON) extended release tablet 40 mEq [[id number]] Ordering Provider: Nita Potter MD Status: Completed (Past End Date/Time) Ordered On: 11/16/19 1057 Starts/Ends: 11/16/19 1130 - 11/16/19 1155 Dose (Remaining/Total): 40 mEq (0/1) Route: oral Frequency: Once Rate/Duration: -- / -- Admin Instructions: Do not crush, chew, cut, dissolve, open or otherwise manipulate tablet/capsule. Timestamps Action Dose Route Other Information 11/16/19 1155 Given 40 mEq oral Performed by: Rossana Santiago LPN Scanned Package: 6631-6712-23, 4721-5015-75 insulin glargine (LANTUS) injection 12 Units [[id number]] Ordering Provider: Nita Potter MD Status: Verified Ordered On: 11/17/19 0816 Start: 11/17/19 0900 Dose (Remaining/Total): 12 Units (--/--) Route: subcutaneous Frequency: Every morning Rate/Duration: -- / -- Admin Instructions: Do not mix with other insulins Timestamps Action Dose Route / Site Other Information 11/19/19 0825 Given 12 Units subcutaneous Left Upper Abdomen Performed by: Brenda Arita RN Scanned Package: 0286-3697-09 sodium chloride 0.9% flush 5-10 mL [[id number]] Ordering Provider: CARLOS Alvarado Status: Verified Ordered On: 11/19/19 110 Start: 11/19/19 1400 Dose (Remaining/Total): 5-10 mL (--/--) Route: intra-catheter Frequency: Every 8 hours scheduled Rate/Duration: -- / -- Admin Instructions: Flush volume based on line type, size, and protocol. (No admins recorded for this medication) sodium chloride 0.9% flush 5-10 mL [[id number]] Ordering Provider: CARLOS Alvarado Status: Verified Ordered On: 11/19/19 110 Start: 11/19/19 1102 Dose (Remaining/Total): 5-10 mL (--/--) Route: intra-catheter Frequency: As needed Rate/Duration: -- / -- Admin Instructions: Flush volume based on line type, size, and protocol. (No admins recorded for this medication) lidocaine PF (XYLOCAINE) 10 mg/mL (1 %) preservative free injection 10-20 mg [[id number]] Ordering Provider: Nita Potter MD Status: Dispensed Ordered On: 11/19/191121 Starts/Ends: 11/19/19 1200 - 11/20/19 1200 Dose (Remaining/Total): 1-2 mL (03/13) Route: subcutaneous Frequency: Once Rate/Duration: -- / -- Admin Instructions: Administer to insertion site prior to procedure of local anesthesia. Administervolume needed to infiltrate site. (No admins recorded for this medication) sodium chloride 0.9% flush 5-10 mL [[id number]] Ordering Provider: Nita Potter MD Status: Verified Ordered On: 11/19/191121 Start: 11/19/19 1200 Dose (Remaining/Total): 5-10 mL (--/--) Route: intra-catheter Frequency: Every 12 hours scheduled Rate/Duration: -- / -- Admin Instructions: Flush volume based on line type, size, and protocol. Timestamps Action Dose Route Other Information 11/19/19 1305 Given 10 mL intra-catheter Performed by: Brenda Arita RN Scanned Package: [id number] sodium chloride 0.9% flush 5-20 mL [[id number]] Ordering Provider: Nita Potter MD Status: Verified Ordered On: 11/19/191121 Start: 11/19/19 112 Dose (Remaining/Total): 5-20 mL (--/--) Route: intra-catheter Frequency: As needed Rate/Duration: -- / -- Admin Instructions: Flush volume based on line type, size, and protocol. (No admins recorded for this medication) * [facility] Note - Vandana Rider MSW - 11/19/2019 2:00 PM CDT Images from the original note were not included. 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) Code Status: FULL Ht: 157.5 cm (5' 2.01 ) Wt: 82.6 kg (182 lb 3.2 oz) Admission Cmt: None Principal Problem: None Elopement Risk Date/Time Elopement Risk User 11/07/19 0240 No risk EMB Intake/Output 11/16/19 07 - 11/17/19 0659 11/17/19 07 - 11/18/19 0659 11/18/19 07 - 11/19/19 0659 11/19/19 07 - 11/20/19 0659 Total Total 8816-2723 8755-7990 7971-1616 Total 9131-0392 3371-7297 7710-4527 Total Intake (ml) 360 0 -- 120 0 120 710 -- -- 710 Output (ml) 950 3000 -- 500 1000 1500 -- -- -- -- Net (ml) -590 -3000 -- -380 -1000 -1380 710 -- -- 710 Patient Lines/Drains/Airways Status Active Airway / Central venous catheter / Drain / Epidural cathether / Intraosseous line / Peripherally inserted central catheter / Peripheral intravenous line / Arterial line Name: Placement date: Placement time: Site: Days: Urethral Catheter 11/07/19 0500 12 PICC Single Lumen 11/19/19 Non-tunneled Power Left Upper arm;Brachial 11/19/19 1123 less than 1 Patient Lines/Drains/Airways Status Active Wound / Pressure ulcer / Vivar / Negative Pressure Wound Pressure Ulcer/Pressure Injury 11/06/19 Transverse Sacrum Date First Assessed 11/06/19 Site: Sacrum Time First Assessed 0500 Days: 13 Present on Hospital Admission: Yes Location Orientation: Transverse Assessments 11/19/19 0911/19/19 0830 11/18/19 2100 11/18/19 0806 11/17/191999 Pressure Ulcer Status -- -- -- Evolving -- Drainage Odor -- -- -- No odor -- Dressing Status Changed Clean/Dry/Intact Clean/Dry/Intact Clean/Dry/Intact Clean/Dry/Intact Dressing/Intervention Cleansed;Foam (Comment-type) Other (Comment) -- -- -- Wound Image Images linked: 1 -- -- -- -- Pressure Ulcer/Pressure Injury 11/07/19 Left Ischium Date First Assessed 11/07/19 Site: Ischium Time First Assessed 1518 Days: 11 Present on Hospital Admission: Yes Location Orientation: Left Assessments 11/19/19 0900 11/19/19 0830 11/18/19 0811/17/191999 Dressing Status Changed Clean/Dry/Intact Clean/Dry/Intact Clean/Dry/Intact Dressing/Intervention Cleansed;Foam (Comment-type) Other (Comment) -- -- Wound Image Images linked: 1 -- -- -- Pressure Ulcer/Pressure Injury 11/07/19 Left;Right Heel Date First Assessed 11/07/19 Site: Heel Time First Assessed 1519 Days: 11 Present on Hospital Admission: Yes Location Orientation: Left;Right Assessments 11/19/19 0830 11/18/19 23011/18/19 0811/17/192099 Pressure Ulcer Status -- Evolving -- Evolving Description -- Unstageable, full thickness tissue loss. The base of the ulcer is not visible due toslough and/or eschar. -- Unstageable, full thickness tissue loss. The base of the ulcer is not visible due to slough and/or eschar. Staging -- Unstageable -- Unstageable Mari-wound Assessment -- Black;Bleeding;Flaky -- Black;Bleeding;Fragile Drainage Amount -- Scant -- Small Drainage Description -- Serosanguineous -- Serosanguineous Drainage Odor -- Malodorous -- Foul Dressing Status Clean/Dry/Intact New;Changed;Clean/Dry/Intact Clean/Dry/Intact Changed;New Dressing/Intervention Other (Comment) Cleansed;Betadine paint -- Cleansed;Betadine paint Stokes Fall Risk Most Recent Value Auto Low/High - if selected proceed to interventions High risk-per unit/hospital protocol ............filed at 11/19/2019 0830 History of Falling 0 ............filed at 11/18/2019 0806 Secondary Diagnosis 15 ............filed at 11/18/2019 0806 Ambulatory Aids 0 ............filed at 11/18/2019 0806 Intravenous Therapy/Heparin/Saline Lock 20 ............filed at 11/18/2019 08 Gait/Transferring 10 ............filed at 11/18/2019 0806 Mental Status 0 ............filed at 11/18/2019 0806 Stokes Fall Risk Score 50 ............filed at 11/19/2019 0830 Vital Signs 11/17 07 - 11/18 0659 11/18 07 - 11/18 1400 Most Recent Temp (??C) 36.3 - 37.1 36.5 - 36.7 36.7 (98.1) Pulse 64 - 74 66 - 68 68 Resp 20 18 18 SpO2 (%) 91 - 99 98 98 BP 110/44 - 132/60 115/59 - 134/72 134/72 MAP (mmHg) 61 - 85 79 - 94 94 Non Violent Restraint Most Recent Value Restraint Alternative Less Restrictive Alternative Comfort Measures filed at 11/14/2019 0600 Restraint Reason Restraint Type (NV) Every 2 Hours Default Flowsheet Data (most recent) Endurance Tests No documentation. Nursing Nutrition Feeding Level of Assistance 11/18 829 Needs set up Nursing Mobility Activity 11/18 1300 Resting in bed (Comment: eating lunch ) 11/18 1258 Resting in bed 11/18 1041 Other (Comment) (Comment: unable to enter room d/t procedure in process) 11/18 09 Resting in bed 11/18 0830 Resting in bed 11/18 0800 Turn 11/18 0700 Resting in bed 11/18 0600 Sleeping 11/18 0500 Sleeping 11/18 0400 Sleeping 11/18 0300 Sleeping 11/18 0200 Sleeping 11/18 0100 Sleeping 11/18 0000 Sleeping 11/17 2300 Sleeping 11/17 2200 Resting in bed 11/17 2100 Resting in bed 11/17 1925 Resting in bed 11/17 1700 Resting in bed 11/17 1600 Resting in bed 11/17 1500 Resting in bed 11/17 1400 Resting in bed 11/17 1300 Resting in bed 11/17 1200 Resting in bed 11/17 1100 Resting in bed 11/17 1000 Resting in bed 11/17 0900 Resting in bed 11/17 0806 Resting in bed 11/17 0700 Resting in bed 11/17 0600 Resting in bed 11/17 0500 Sleeping 11/17 0400 Sleeping 11/17 0300 Sleeping 11/17 0200 Sleeping 11/17 0100 Sleeping 11/17 0000 Sleeping 11/16 2300 Sleeping 11/16 2200 Resting in bed;Sleeping 11/16 2100 Resting in bed 11/16 2000 Resting in bed 11/16 1800 Resting in bed 11/16 1700 Resting in bed 11/16 1600 Resting in bed 11/16 1500 Resting in bed 11/16 1400 Resting in bed 11/16 1300 Resting in bed 11/16 1200 Resting in bed 11/16 1100 Resting in bed 11/16 1000 Resting in bed 11/16 0900 Resting in bed 11/16 0800 Resting in bed 11/16 0700 Resting in bed 11/16 0600 Resting in bed 11/16 0420 Resting in bed 11/16 0200 Resting in bed 11/16 0054 Resting in bed 11/16 0012 Resting in bed 11/15 2345 Resting in bed 11/15 2200 Resting in bed 11/15 2000 Resting in bed 11/15 1800 Resting in bed 11/15 1700 Resting in bed 11/15 1600 Sleeping 11/15 1500 Sleeping Level of Assistance 11/18 09 Moderate assist, patient does 50-74% 11/18 0830 Moderate assist, patient does 50-74% 11/18 0700 Moderate assist, patient does 50-74% 11/18 0600 Moderate assist, patient does 50-74% 11/18 0500 Moderate assist, patient does 50-74% 11/18 0400 Moderate assist, patient does 50-74% 11/18 0300 Moderate assist, patient does 50-74% 11/18 0200 Moderate assist, patient does 50-74% 11/18 0100 Moderate assist, patient does 50-74% 11/18 0000 Moderate assist, patient does 50-74% 11/17 2300 Moderate assist, patient does 50-74% 11/17 2200 Moderate assist, patient does 50-74% 11/17 2100 Moderate assist, patient does 50-74% 11/17 1925 Moderate assist, patient does 50-74% 11/17 1700 Moderate assist, patient does 50-74% 11/17 1600 Moderate assist, patient does 50-74% 11/17 1500 Moderate assist, patient does 50-74% 11/17 1400 Moderate assist, patient does 50-74% 11/17 1300 Moderate assist, patient does 50-74% 11/17 1200 Moderate assist, patient does 50-74% 11/17 1100 Moderate assist, patient does 50-74% 11/17 1000 Moderate assist, patient does 50-74% 11/17 0900 Moderate assist, patient does 50-74% 11/17 0806 Moderate assist, patient does 50-74% 11/17 0700 Moderate assist, patient does 50-74% 11/17 0600 Moderate assist, patient does 50-74% 11/17 0500 Moderate assist, patient does 50-74% 11/17 0400 Moderate assist, patient does 50-74% 11/17 0300 Moderate assist, patient does 50-74% 11/17 0200 Moderate assist, patient does 50-74% 11/17 0100 Moderate assist, patient does 50-74% 11/17 0000 Moderate assist, patient does 50-74% 11/16 2300 Moderate assist, patient does 50-74% 11/16 2200 Moderate assist, patient does 50-74% 11/16 2100 Moderate assist, patient does 50-74% 11/16 2000 Moderate assist, patient does 50-74% 11/16 1700 Moderate assist, patient does 50-74% 11/16 1500 Moderate assist, patient does 50-74% 11/16 1300 Moderate assist, patient does 50-74% 11/16 1100 Moderate assist, patient does 50-74% 11/16 0900 Moderate assist, patient does 50-74% 11/16 0700 Moderate assist, patient does 50-74% 11/16 0600 Moderate assist, patient does 50-74% 11/16 0420 Moderate assist, patient does 50-74% 11/16 0200 Moderate assist, patient does 50-74% 11/16 0054 Moderate assist, patient does 50-74% 11/16 0012 Moderate assist, patient does 50-74% 11/15 2345 Moderate assist, patient does 50-74% 11/15 2200 Moderate assist, patient does 50-74% 11/15 2000 Moderate assist, patient does 50-74% 11/15 1800 Moderate assist, patient does 50-74% 11/15 1700 Moderate assist, patient does 50-74% 11/15 1600 Moderate assist, patient does 50-74% 11/15 1500 Moderate assist, patient does 50-74% Assistive Device 11/18 829 Mechanical lift 11/18 0000 Mechanical lift 11/16 1999 Mechanical lift Repositioned 11/18 1300 Semi Greer's 11/18 1258 Supine 11/18 1041 Other (Comment) (Comment: unable to enter room d/t procedure in process) 11/18 0900 Right side;Pillow support 11/18 0830 Right side;Semi Grere's;Pillow support 11/18 0800 Right side;Pillow support 11/18 07 Semi Greer's 11/18 06 Right side 11/18 0500 Right side;Turns self 11/18 0400 Supine;Pillow support 11/18 0300 Turns self 11/18 0200 Left side;Pillow support 11/18 0100 Turns self 11/18 0000 Right side 11/17 2300 Turns self 11/17 2200 Turns self 11/17 2100 Turns self 11/17 1925 Left side;Pillow support 11/17 1700 Left side;Pillow support 11/17 1600 Left side;Pillow support 11/17 1500 Semi Greer's 11/17 1400 Semi Greer's 11/17 1300 Semi Greer's 11/17 1200 Left side;Semi Greer's 11/17 1100 Left side;Semi Greer's 11/17 1024 Left side;Pillow support 11/17 1000 Right side;Pillow support 11/17 0900 Right side;Pillow support 11/17 0806 Semi Greer's 11/17 0700 Right side;Pillow support 11/17 0600 Right side;Pillow support 11/17 0500 Right side 11/17 0400 Left side 11/17 0300 Left side 11/17 0200 Right side 11/17 0100 Right side 11/17 0000 Left side 11/16 2300 Left side 11/16 2200 Right side 11/16 2100 Right side 11/16 2000 Supine;Pillow support 11/16 1800 Left side 11/16 1700 Semi Greer's 11/16 1600 Right side 11/16 1500 Left side;Pillow support 11/16 1400 Left side;Pillow support (Comment: wedges ) 11/16 1300 Right side;Pillow support 11/16 1200 Sitting 11/16 1100 Left side 11/16 1000 Left side 11/16 0900 Right side 11/16 0800 Right side 11/16 0700 Supine 11/16 0600 Supine;Pillow support 11/16 0420 Left side;Pillow support 11/16 0200 Supine;Pillow support 11/16 0054 Left side;Pillow support 11/16 0012 Supine;Pillow support 11/15 2345 Supine;Pillow support 11/15 2200 Right side;Pillow support 11/15 2000 Left side 09 1800 Left side;Pillow support 11/15 1700 Left side;Pillow support 11/15 1600 Left side;Pillow support 11/15 1500 Left side Positioning Frequency 11/18 1300 Every 2 hours 08 0900 Every 2 hours 11/18 0830 Every 2 hours 11/18 0800 Every 2 hours 11/18 0700 Every 2 hours 11/18 0600 Every 2 hours 11/18 0500 Every 2 hours 11/18 0400 Every 2 hours 11/18 0300 Able to turn self 11/18 0200 Every 2 hours 11/18 0100 Able to turn self 11/18 0000 Every 2 hours 11/17 2300 Able to turn self 11/17 2200 Able to turn self 11/17 2100 Able to turn self 11/17 1925 Every 2 hours 11/17 1700 Every 2 hours 11/17 1600 Every 2 hours 11/17 1500 Every 2 hours 11/17 1400 Every 2 hours 11/17 1300 Every 2 hours 11/17 1200 Every 2 hours 11/17 1100 Every 2 hours 11/17 1024 Every 2 hours 09 1000 Every 2 hours 09/07 0900 Every 2 hours 09/07 0806 Every 2 hours 09/ 0700 Every 2 hours 11/17 0600 Every 2 hours 09/07 0500 Every 2 hours 11/17 0400 Every 2 hours 11/17 0300 Every 2 hours 0907 0200 Every 2 hours 07 0100 Every 2 hours 09/07 0000 Every 2 hours 06 2300 Every 2 hours 11/16 2200 Every 2 hours 11/16 2100 Every 2 hours 11/16 2000 Every 2 hours 11/16 1700 Every 2 hours 11/16 1500 Every 2 hours 11/16 1300 Able to turn self 11/16 1100 Able to turn self 11/16 0900 Able to turn self 11/16 0700 Every 2 hours 11/16 0600 Every 2 hours 11/16 0420 Every 2 hours 11/16 0200 Every 2 hours 11/16 0054 Every 2 hours 11/16 0012 Every 2 hours 11/15 2345 Every 2 hours 11/15 2200 Every 2 hours 11/15 2000 Every 2 hours 11/15 1800 Every 2 hours 11/15 1700 Every 2 hours 11/15 1600 Every 2 hours 11/15 1500 Every 2 hours Head of Bed Elevated 11/18 1300 HOB 60 11/18 1258 HOB 60 11/18 09 HOB 30 11/18 0830 HOB 30 11/18 0800 HOB 30 11/18 0700 HOB 30 11/18 0600 HOB 30 11/18 0500 HOB 30 11/18 0400 HOB 30 11/18 0300 HOB 30 11/18 0200 HOB 30 11/18 0100 HOB 30 11/17 2300 HOB 30 11/17 2200 Self regulated 11/17 2100 HOB 30 11/17 1925 HOB 30 11/17 1700 HOB 30 11/17 1600 HOB 30 11/17 1500 HOB 30 11/17 1400 HOB 30 11/17 1300 HOB 45 11/17 1200 HOB 45 11/17 1100 HOB 30 11/17 1024 HOB 30 11/17 1000 HOB 30 11/17 0900 HOB 30 11/17 0806 HOB 45 11/17 0700 HOB 30 11/17 0600 HOB 30 11/17 0500 HOB 30 11/17 0400 HOB 30 11/17 0300 HOB 30 11/17 0200 HOB 30 11/17 0100 HOB 30 11/17 0000 HOB 30 11/16 2300 HOB 30 11/16 2200 HOB 30 11/16 2100 HOB 30 11/16 2000 HOB 30 11/16 1700 Self regulated 11/16 1500 Self regulated 11/16 1300 Self regulated 11/16 1100 Self regulated 11/16 09 Self regulated 11/16 0700 HOB 45 11/16 0600 HOB 45 11/16 0420 HOB 45 11/16 0200 HOB 45 11/16 0054 HOB 45 11/16 0012 HOB 45 11/15 2345 HOB 45 11/15 2200 HOB Flat 11/15 2000 HOB 30 11/15 1800 HOB 30 11/15 1700 HOB 30 11/15 1600 HOB 30 11/15 1500 HOB 30 Heels/Feet 11/18 1300 Bilateral multi-podus boots 11/18 0900 Bilateral multi-podus boots 11/18 0830 Bilateral heel protectors 11/18 0800 Bilateral heel protectors 11/18 0700 Bilateral heel protectors 11/18 0600 Bilateral heel protectors 11/18 0400 Bilateral heel protectors 11/18 0200 Bilateral heel protectors 11/18 0000 Bilateral heel protectors 11/17 2200 Bilateral heel protectors 11/17 1925 Bilateral heel protectors 11/17 1700 Heels elevated off bed 11/17 1600 Heels elevated off bed;Foot of bed elevated;Bilateral multi-podus boots 11/17 1500 Foot of bed elevated 11/17 1400 Foot of bed elevated;Heels elevated off bed;Bilateral multi-podus boots 11/17 1300 Foot of bed elevated 11/17 1200 Foot of bed elevated;Heels elevated off bed;Bilateral multi-podus boots 11/17 1100 Heels elevated off bed 11/17 1024 Heels elevated off bed;Foot of bed elevated;Bilateral multi-podus boots 11/17 1000 Heels elevated off bed;Foot of bed elevated;Bilateral multi-podus boots 11/17 0900 Bilateral heel protectors 11/17 0806 Heels elevated off bed;Foot of bed elevated;Bilateral multi-podus boots 11/17 0700 Bilateral heel protectors 11/17 0600 Bilateral heel protectors 11/17 0400 Bilateral heel protectors 11/17 0200 Bilateral heel protectors 11/17 0000 Bilateral heel protectors 11/16 2200 Bilateral heel protectors 11/16 2000 Bilateral heel protectors 11/16 1700 Foot of bed elevated 11/16 1500 Foot of bed elevated 11/16 1300 Foot of bed elevated 11/16 1100 Foot of bed elevated 11/16 0900 Foot of bed elevated 11/16 0700 Bilateral heel protectors 11/16 0600 Bilateral heel protectors 11/16 0420 Bilateral heel protectors 11/16 0200 Bilateral heel protectors 11/16 0054 Bilateral heel protectors 11/16 0012 Bilateral heel protectors 11/15 2345 Bilateral heel protectors 11/15 2200 Bilateral heel protectors 11/15 2000 Bilateral heel protectors 11/15 1800 Heels elevated off bed;Foot of bed elevated;Bilateral multi-podus boots 11/15 1700 Heels elevated off bed 11/15 1600 Heels elevated off bed;Foot of bed elevated;Bilateral multi-podus boots 11/15 1500 Heels elevated off bed Range of Motion 11/18 1300 Active;All extremities 11/18 0900 Active;All extremities 11/18 0700 Active;All extremities 11/18 0600 Active;All extremities 11/18 0400 Active;All extremities 11/18 0200 Active;All extremities 11/18 0000 Active;All extremities 11/17 2200 Active;All extremities 11/17 1925 Active;All extremities 11/17 1500 Active;All extremities 11/17 1300 Active;All extremities 11/17 1100 Active;All extremities 11/17 0900 Active;All extremities 11/17 0700 Active;All extremities 11/17 0600 Active;All extremities 11/17 0400 Active;All extremities 11/17 0200 Active;All extremities 11/17 0000 Active;All extremities 11/16 2200 Active;All extremities 11/16 2000 Active;All extremities 11/16 1700 Active;All extremities 11/16 1500 Active;All extremities 11/16 1300 Active;All extremities 11/16 1100 Active;All extremities 11/16 0900 Active;All extremities 11/16 0700 Active;All extremities 11/16 0600 Active;All extremities 11/16 0420 Active;All extremities 11/16 0200 Active;All extremities 11/16 0054 Active;All extremities 11/16 0012 Active;All extremities 11/15 2345 Active;All extremities 11/15 2200 Active;All extremities 11/15 2000 Active;All extremities 11/15 1700 Active;All extremities Type of Device 11/18 829 Mechanical compression 11/17 1924 Mechanical compression 11/16 1999 Mechanical compression Mechanical Compression Site 11/18 829 Bilateral 11/17 1924 Bilateral 11/18 799 Bilateral 11/16 1999 Bilateral Mechanical Compression Type 11/18 829 IPC/SCD 11/17 1924 IPC/SCD 11/18 799 IPC/SCD 11/16 1999 IPC/SCD Mechanical Compression Status 11/18 829 On 11/17 1924 Off 11/18 799 On 11/16 1999 Off (Comment: pateint on Chemical prophylaxis. ) * [facility] Note - Vandana Rider MSW - 11/19/2019 1:39 PM CDT Images from the original note were not included. Patient Information: Wound Info Only Patient Lines/Drains/Airways Status Active Wound / Pressure ulcer / Vivar / Negative Pressure Wound Pressure Ulcer/Pressure Injury 11/06/19 Transverse Sacrum Date First Assessed 11/06/19 Site: Sacrum Time First Assessed 0500 Days: 13 Present on Hospital Admission: Yes Location Orientation: Transverse Assessments 11/19/19 0911/19/19 0811/18/19209911/18/1980511/17/191999 Pressure Ulcer Status -- -- -- Evolving -- Drainage Odor -- -- -- No odor -- Dressing Status Changed Clean/Dry/Intact Clean/Dry/Intact Clean/Dry/Intact Clean/Dry/Intact Dressing/Intervention Cleansed;Foam (Comment-type) Other (Comment) -- -- -- Wound Image Images linked: 1 -- -- -- -- Pressure Ulcer/Pressure Injury 11/07/19 Left Ischium Date First Assessed 11/07/19 Site: Ischium Time First Assessed 1518 Days: 11 Present on Hospital Admission: Yes Location Orientation: Left Assessments 11/19/19 0911/19/1982911/18/1980511/17/191999 Dressing Status Changed Clean/Dry/Intact Clean/Dry/Intact Clean/Dry/Intact Dressing/Intervention Cleansed;Foam (Comment-type) Other (Comment) -- -- Wound Image Images linked: 1 -- -- -- Pressure Ulcer/Pressure Injury 11/07/19 Left;Right Heel Date First Assessed 11/07/19 Site: Heel Time First Assessed 1519 Days: 11 Present on Hospital Admission: Yes Location Orientation: Left;Right Assessments 11/19/19 0830 11/18/19229911/18/1980511/17/192099 Pressure Ulcer Status -- Evolving -- Evolving Description -- Unstageable, full thickness tissue loss. The base of the ulcer is not visible due toslough and/or eschar. -- Unstageable, full thickness tissue loss. The base of the ulcer is not visible due to slough and/or eschar. Staging -- Unstageable -- Unstageable Mari-wound Assessment -- Black;Bleeding;Flaky -- Black;Bleeding;Fragile Drainage Amount -- Scant -- Small Drainage Description -- Serosanguineous -- Serosanguineous Drainage Odor -- Malodorous -- Foul Dressing Status Clean/Dry/Intact New;Changed;Clean/Dry/Intact Clean/Dry/Intact Changed;New Dressing/Intervention Other (Comment) Cleansed;Betadine paint -- Cleansed;Betadine paint , Vitals Info Only Vital Signs 11/17 699 - 11/18 0659 11/18 699 - 11/18 1339 Most Recent Temp (??C) 36.3 - 37.1 36.5 - 36.7 36.7 (98.1) Pulse 64 - 74 66 - 68 68 Resp 20 18 18 SpO2 (%) 91 - 99 98 98 BP 110/44 - 132/60 115/59 - 134/72 134/72 MAP (mmHg) 61 - 85 79 - 94 94 , Oxygen Info Only Default Flowsheet Data (most recent) Endurance Tests No documentation. Default Flowsheet Data (last 48 hours) Oxygen Row Name 11/19/19 11:49:21 11/19/19 0830 11/19/19 08:01:43 11/19/19 02:06:32 11/18/19 22:37:07 Oxygen Therapy/Pulse Ox O2 Therapy None (Room air) None (Room air) None (Room air) None (Room air) None (Room air) SpO2 98 % -- 98 % 99 % 97 % Patient Activity -- At rest -- -- -- Row Name 11/18/19 19:46:07 11/18/19191911/18/19 15:06:26 11/18/19 11:07:31 11/18/19 1002 Oxygen Therapy/Pulse Ox O2 Therapy None (Room air) None (Room air) None (Room air) None (Room air) None (Room air) SpO2 94 % -- 91 % 92 % 93 % Patient Activity -- At rest -- -- At rest Row Name 11/18/19 0806 11/18/19 07:30:42 11/18/19 02:32:53 11/17/19 22:27:23 11/17/192019 Oxygen Therapy/Pulse Ox O2 Therapy None (Room air) None (Room air) None (Room air) None (Room air) None (Room air) SpO2 -- 96 % 95 % 98 % -- Row Name 11/17/19 19:55:29 11/17/19 16:08:02 Oxygen Therapy/Pulse Ox O2 Therapy None (Room air) None (Room air) SpO2 95 % 98 % * [facility] Note - Vandana Rider MSW - 11/19/2019 1:38 PM CDT Patient Information: Meds and Admin Active Only All Meds/Most Recent Administrations piperacillin-tazobactam (ZOSYN) 3.375 g in sodium chloride 0.9% 100 mL IVPB [[id number]] Ordering Provider: Sina Schilling MD Status: Completed (Past End Date/Time) Ordered On: 11/06/191853 Starts/Ends: 11/06/191853 - 11/06/192004 Dose (Remaining/Total): 3.375 g (0/1) Route: intravenous Frequency: Once Rate/Duration: 200 mL/hr / 30 Minutes Admin Instructions: Mini-Bag Plus bag Timestamps Action Dose / Rate / Duration Route Other Information 11/06/191934 New Bag 3.375 g 200 mL/hr 30 Minutes intravenous Performed by: Holly Caba RN Scanned Package: 2210-8184-79, [id number] sodium chloride 0.9% flush 0.5-20 mL [[id number]] Ordering Provider: Sina Schilling MD Status: Verified Ordered On: 11/07/1949 Start: 11/07/19 013 Dose (Remaining/Total): 0.5-20 mL (--/--) Route: intra-catheter Frequency: Every 8 hours scheduled Rate/Duration: -- / -- Admin Instructions: Flush volume based on line type and size. Timestamps Action Dose Route Other Information 11/19/19 0827 Given 10 mL intra-catheter Performed by: Brenda Arita RN Scanned Package: [id number] sodium chloride 0.9% flush 0.5-20 mL [[id number]] Ordering Provider: Sina Schilling MD Status: Verified Ordered On: 11/07/1949 Start: 11/07/1949 Dose (Remaining/Total): 0.5-20 mL (--/--) Route: intra-catheter Frequency: As needed Rate/Duration: -- / -- Admin Instructions: Flush volume based on line type and size. Flush before and after each use. (No admins recorded for this medication) ondansetron ODT (ZOFRAN-ODT) disintegrating tablet 4 mg [[id number]] Ordering Provider: Sina Schilling MD Status: Verified Ordered On: 11/07/1949 Start: 11/07/1949 Dose (Remaining/Total): 4 mg (--/--) Route: oral Frequency: Every 6 hours PRN Rate/Duration: -- / -- (No admins recorded for this medication) ondansetron (ZOFRAN) injection 4 mg [[id number]] Ordering Provider: Sina Schilling MD Status: Verified Ordered On: 11/07/1949 Start: 11/07/1949 Dose (Remaining/Total): 4 mg (--/--) Route: intravenous Frequency: Every 6 hours PRN Rate/Duration: -- / 2 Minutes (No admins recorded for this medication) docusate sodium (COLACE) capsule 100 mg [[id number]] Ordering Provider: Sina Schilling MD Status: Dispensed Ordered On: 11/07/1949 Start: 11/07/1949 Dose (Remaining/Total): 100 mg (--/--) Route: oral Frequency: 2 times daily PRN Rate/Duration: -- / -- Timestamps Action Dose Route Other Information 11/15/192025 Given 100 mg oral Performed by: Lissa Hernandez RN Scanned Package: 7765-8943-02 sodium chloride 0.9% bolus 1,000 mL [[id number]] Ordering Provider: Sina Schilling MD Status: Completed (Past End Date/Time) Ordered On: 11/06/192107 Starts/Ends: 11/06/192108 - 11/06/192227 Dose (Remaining/Total): 1,000 mL (0/1) Route: intravenous Frequency: Once Rate/Duration: 1,000 mL/hr / 1 Hours Line Med Link Info Comment Peripheral IV 11/06/19 18 G Right Arm 11/06/192127 by Holly Caba RN -- Timestamps Action Dose / Rate / Duration Route Other Information 11/06/192127 New Bag 1,000 mL 1,000 mL/hr 1 Hours intravenous Performed by: Holly Caba RN Scanned Package: 6788-6712-32 amLODIPine (NORVASC) tablet 10 mg [[id number]] Ordering Provider: Zack Johnson NP Status: Dispensed Ordered On: 11/07/197 Start: 11/07/19 0900 Dose (Remaining/Total): 10 mg (--/--) Route: oral Frequency: Daily Rate/Duration: -- / -- Timestamps Action Dose Route Other Information 11/19/19 0825 Given 10 mg oral Performed by: Brenda Arita RN Scanned Package: 3018-8397-92 atorvastatin (LIPITOR) tablet 40 mg [[id number]] Ordering Provider: Zack Johnson NP Status: Dispensed Ordered On: 11/07/197 Start: 11/07/19 2100 Dose (Remaining/Total): 40 mg (--/--) Route: oral Frequency: Nightly Rate/Duration: -- / -- Timestamps Action Dose Route Other Information 11/18/191938 Given 40 mg oral Performed by: Reza Barahona RN Scanned Package: [id number] aspirin tablet 325 mg [[id number]] Ordering Provider: Zack Johnson NP Status: Dispensed Ordered On: 11/07/1949 Start: 11/07/19 0900 Dose (Remaining/Total): 325 mg (--/--) Route: oral Frequency: Daily Rate/Duration: -- / -- Timestamps Action Dose Route Other Information 11/19/19 0825 Given 325 mg oral Performed by: Brenda Arita RN Scanned Package: 25997-615-78 chlorthalidone tablet 25 mg [[id number]] Ordering Provider: Zack Johnson NP Status: Dispensed Ordered On: 11/07/1949 Start: 11/07/19899 Dose (Remaining/Total): 25 mg (--/--) Route: oral Frequency: Daily Rate/Duration: -- / -- Timestamps Action Dose Route Other Information 11/19/19824 Given 25 mg oral Performed by: Brenda Arita RN Scanned Package: 73302-384-[address] (PROTONIX) extended release tablet 40 mg [[id number]] Ordering Provider: Zack Johnson NP Status: Dispensed Ordered On: 11/07/1949 Start: 11/07/19899 Dose (Remaining/Total): 40 mg (--/--) Route: oral Frequency: Daily Rate/Duration: -- / -- Admin Instructions: Do not crush, chew, cut, dissolve, open or otherwise manipulate tablet/capsule. Timestamps Action Dose Route Other Information 11/19/19824 Given 40 mg oral Performed by: Brenda Arita RN Scanned Package: 00600-922-06 polyethylene glycol (MIRALAX) packet 17 g [[id number]] Ordering Provider: Zack Johnson NP Status: Dispensed Ordered On: 11/07/1949 Start: 11/07/19899 Dose (Remaining/Total): 17 g (--/--) Route: oral Frequency: Daily Rate/Duration: -- / -- Timestamps Action Dose Route Other Information 11/19/19824 Given 17 g oral Performed by: Brenda Arita RN Scanned Package: 9965-6550-81 levothyroxine (SYNTHROID) tablet 50 mcg [[id number]] Ordering Provider: Zack Johnson NP Status: Dispensed Ordered On: 11/07/1949 Start: 11/07/19599 Dose (Remaining/Total): 50 mcg (--/--) Route: oral Frequency: Daily (early AM) Rate/Duration: -- / -- Admin Instructions: Administer on an empty stomach, preferably 30 minutes before breakfast. Take 4 hours apart from antacids, iron and calcium products. Timestamps Action Dose Route Other Information 11/19/19608 Given 50 mcg oral Performed by: Reza Barahona RN Scanned Package: 16773-077-16 gabapentin (NEURONTIN) capsule 300 mg [[id number]] Ordering Provider: Zack Johnson NP Status: Dispensed Ordered On: 11/07/19 005 Start: 11/07/19 0900 Dose (Remaining/Total): 300 mg (--/--) Route: oral Frequency: 3 times daily Rate/Duration: -- / -- Timestamps Action Dose Route Other Information 11/19/19 0825 Given 300 mg oral Performed by: Brenda Arita RN Scanned Package: 3305-7374-04 vancomycin (VANCOCIN) 1,750 mg in sodium chloride 0.9% 500 mL IVPB [[id number]] Ordering Provider: Zack Johnson NP Status: Completed (Past End Date/Time) Ordered On: 11/07/1949 Starts/Ends: 11/07/19 0130 - 11/07/19 0526 Dose (Remaining/Total): 1,750 mg (0/1) Route: intravenous Frequency: Once Rate/Duration: 258.8 mL/hr / 120 Minutes Timestamps Action Dose / Rate / Duration Route Other Information 11/07/19 0326 New Bag 1,750 mg 258.8 mL/hr 120 Minutes intravenous Performed by: Ludmila Casas RN hydrALAZINE (APRESOLINE) tablet 25 mg [[id number]] Ordering Provider: Zack Johnson NP Status: Completed (Past End Date/Time) Ordered On: 11/07/1952 Starts/Ends: 11/07/19 013 - 11/07/19 0200 Dose (Remaining/Total): 25 mg (0/1) Route: oral Frequency: Once Rate/Duration: -- / -- Timestamps Action Dose Route Other Information 11/07/19 020 Given 25 mg oral Performed by: Ludmila Casas RN sodium chloride 0.9% IVPB 0-250 mL [[id number]] Ordering Provider: Reji Whittaker MD Status: Verified (Past End Date/Time) Ordered On: 11/07/191749 Starts/Ends: 11/07/191829 - 11/08/19 183 Dose (Remaining/Total): 0-250 mL (1/1) Route: intravenous Frequency: Once Rate/Duration: -- / -- Admin Instructions: Prime blood tubing and administer amount needed to clear line (usually 50-100 mL) after transfusion complete. (No admins recorded for this medication) sodium chloride 0.9% 0.9% infusion - ADS Override Pull [[id number]] Status: Completed (Past End Date/Time) Ordered On: 11/08/19113 Starts/Ends: 11/08/19 011 - 11/08/19 0245 Dose (Remaining/Total): -- (01) Route: -- Frequency: -- Rate/Duration: -- / -- Admin Instructions: Created by cabinet override Note to pharmacy: Created by cabinet override Timestamps Action Dose Route / Site / Linked Line Other Information 11/08/19 024 New Bag 500 mL -- Performed by: Rebecca Ortega RN Comments: pulled for use with blood transfusion Scanned Package: [id number] enoxaparin (LOVENOX) syringe 40 mg [[id number]] Ordering Provider: Reji Whittaker MD Status: Dispensed Ordered On: 11/08/19 1443 Start: 11/08/19 2100 Dose (Remaining/Total): 40 mg (--/--) Route: subcutaneous Frequency: Daily (for enoxaparin) Rate/Duration: -- / -- Admin Instructions: Per [facility] Pharmacy Dosing and Monitoring Policy Lovenox for DVT prevention was increased to 40mg for CrCl > 30 mL/min Timestamps Action Dose Route / Site Other Information 11/18/19 193 Given 40 mg subcutaneous Left Upper Abdomen Performed by: Reza Barahona RN Scanned Package: 83793-943-34 ioversoL (OPTIRAY 350) syringe syringe 100 mL [[id number]] Ordering Provider: Markel Bourgeois MD Status: Completed (Past End Date/Time) Ordered On: 11/08/191723 Starts/Ends: 11/08/191723 - 11/08/191756 Dose (Remaining/Total): 100 mL (0/1) Route: intravenous Frequency: Once in imaging Rate/Duration: -- / -- Line Med Link Info Comment Peripheral IV 11/06/19 18 G Right Arm 11/08/19 1757 by Ramez Red, RT -- Timestamps Action Dose Route Other Information 11/08/19 175 Given 97 mL intravenous Performed by: Ramez Red RT Scanned Package: 7449-7446-00 insulin lispro (HumaLOG, ADMELOG) injection 7 Units [[id number]] Ordering Provider: Reji Whittaker MD Status: Completed (Past End Date/Time) Ordered On: 11/09/191219 Starts/Ends: 11/09/19 1300 - 11/09/19 1223 Dose (Remaining/Total): 7 Units (0/1) Route: subcutaneous Frequency: Once Rate/Duration: -- / -- Timestamps Action Dose Route / Site Other Information 11/09/19 122 Given 7 Units subcutaneous Right Lower Abdomen Performed by: Lety Olguin RN Scanned Package: 8129-0825-88 acetaminophen (TYLENOL) tablet 650 mg [[id number]] Ordering Provider: Reji Whittaker MD Status: Dispensed Ordered On: 11/09/191840 Start: 11/09/19 184 Dose (Remaining/Total): 650 mg (--/--) Route: oral Frequency: Every 6 hours PRN Rate/Duration: -- / -- Timestamps Action Dose Route Other Information 11/18/19 2337 Given 650 mg oral Performed by: Reza Barahona RN dextrose oral liquid liquid 15 g [[id number]] Ordering Provider: Reji Whittaker MD Status: Verified Ordered On: 11/10/19 0941 Start: 11/10/19 0936 Dose (Remaining/Total): 15 g (--/--) Route: oral Frequency: Every 15 min PRN Rate/Duration: -- / -- Admin Instructions: If patient is alert and able to eat/drink, give 15 gm glucose or one juice (4 fluid ounces) NOT ORANGE JUICE. After treatment for hypoglycemia, recheck BG followed by treatment every 15 minutes until the BG is greater than 100 mg/dL. Then check BG 1 hour post-treatment. If BG isless than 100 mg/dL, repeat Q15 minute BG checks and treatment. Call MD for each episode of hypoglycemia. (No admins recorded for this medication) dextrose (D10W) 10% bolus 250 mL [[id number]] Ordering Provider: Reji Whittaker MD Status: Verified Ordered On: 11/10/19940 Start: 11/10/19935 Dose (Remaining/Total): 250 mL (--/--) Route: intravenous Frequency: Every 15 min PRN Rate/Duration: 1,000 mL/hr / 15 Minutes Admin Instructions: After treatment for hypoglycemia, recheck BG followed by treatment every 15 minutes until the BG is greater than 100 mg/dL. Then check BG 1 hour post treatment. If BG is less [id number] mg/dL, repeat Q15 minute BG checks and treatment. Call MD for each episode of hypoglycemia. (No admins recorded for this medication) glucagon injection 1 mg [[id number]] Ordering Provider: Reji Whittaker MD Status: Verified Ordered On: 11/10/19940 Start: 11/10/19935 Dose (Remaining/Total): 1 mg (--/--) Route: intramuscular Frequency: Every 30 min PRN Rate/Duration: -- / 1 Minutes Admin Instructions: After Glucagon is administered, position patient on side if possible to avoid aspiration. Obtain IV access. Follow glucagon treatment with glucose treatment or IV dextrose. After treatment for hypoglycemia, recheck BG followed by treatment every 15 minutes until the BG isgreater than 100 mg/dL. Then check BG 1 hour post treatment. If BG is less than 100 mg/dL, repeat Q15 minute BG checks and treatment. Call MD for each episode of hypoglycemia. (No admins recorded for this medication) insulin lispro (HumaLOG, ADMELOG) injection 1-5 Units [[id number]] Ordering Provider: Reji Whittaker MD Status: Verified Ordered On: 11/10/19940 Start: 11/10/191199 Dose (Remaining/Total): 1-5 Units (--/--) Route: subcutaneous Frequency: 3 times daily with meals Rate/Duration: -- / -- Admin Instructions: Blood Sugar Mid Dose meal time - PO patients 139 or less No insulin 140 - 175 1 unit 176 - 200 2 unit 201 - 250 3 units 251 - 299 5 units Greater than 299 Call MD for hyperglycemia management instructions Do NOT hold for NPO status. Timestamps Action Dose Route / Site Other Information 11/19/19 1300 Given 5 Units subcutaneous Right Lower Abdomen Performed by: Brenda Arita RN Scanned Package: 3611-0052-16 cloNIDine (CATAPRES) tablet 0.1 mg [[id number]] Ordering Provider: Reji Whittaker MD Status: Dispensed Ordered On: 11/10/191649 Start: 11/10/19 164 Dose (Remaining/Total): 0.1 mg (--/--) Route: oral Frequency: Every 6 hours PRN Rate/Duration: -- / -- Timestamps Action Dose Route Other Information 11/10/191655 Given 0.1 mg oral Performed by: Lety Olguin RN Scanned Package: [id number] cefTRIAXone (ROCEPHIN) 2,000 mg/20 mL in sterile water (premix) 2,000 mg [[id number]] Ordering Provider: Markel Bourgeois MD Status: Dispensed Ordered On: 11/12/191421 Start: 11/12/19 1500 Dose (Remaining/Total): 2,000 mg (--/--) Route: intravenous Frequency: Every 24 hours scheduled Rate/Duration: 1,200 mL/hr / 1 Minutes Line Med Link Info Comment Peripheral IV 11/12/19 22 G Left;Posterior Hand 11/12/19 1529 by Rossana Santiago LPN -- Peripheral IV 11/15/19 22 G Posterior;Right Hand 11/16/19 0812 by Rossana Santiago LPN -- Timestamps Action Dose / Rate / Duration Route Other Information 11/19/19 0824 Given 2,000 mg 1,200 mL/hr 1 Minutes intravenous Performed by: Brenda Arita RN Scanned Package: 6275-0252-98, 5488-3037-68 metroNIDAZOLE (FLAGYL) tablet 500 mg [[id number]] Ordering Provider: Markel Bourgeois MD Status: Dispensed Ordered On: 11/12/191421 Start: 11/12/19 1600 Dose (Remaining/Total): 500 mg (--/--) Route: oral Frequency: 3 times daily Rate/Duration: -- / -- Timestamps Action Dose Route Other Information 11/19/19 0825 Given 500 mg oral Performed by: Brenda Arita RN Scanned Package: [id number] insulin lispro (HumaLOG, ADMELOG) injection 10 Units [[id number]] Ordering Provider: Reji Whittaker MD Status: Completed (Past End Date/Time) Ordered On: 11/14/19 1241 Starts/Ends: 11/14/19 1315 - 11/14/19 131 Dose (Remaining/Total): 10 Units (0/1) Route: subcutaneous Frequency: Once Rate/Duration: -- / -- Timestamps Action Dose Route / Site Other Information 11/14/191316 Given 10 Units subcutaneous Left Upper Arm Performed by: rBenda Arita RN potassium chloride ER (KLOR-CON) extended release tablet 40 mEq [[id number]] Ordering Provider: Nita Potter MD Status: Completed (Past End Date/Time) Ordered On: 11/16/19 1057 Starts/Ends: 11/16/19 1130 - 11/16/19 1155 Dose (Remaining/Total): 40 mEq (0/1) Route: oral Frequency: Once Rate/Duration: -- / -- Admin Instructions: Do not crush, chew, cut, dissolve, open or otherwise manipulate tablet/capsule. Timestamps Action Dose Route Other Information 11/16/19 115 Given 40 mEq oral Performed by: Rossana Santiago LPN Scanned Package: 5649-8130-99, 1798-0663-97 insulin glargine (LANTUS) injection 12 Units [[id number]] Ordering Provider: Nita Potter MD Status: Verified Ordered On: 11/17/19 0816 Start: 11/17/19 0900 Dose (Remaining/Total): 12 Units (--/--) Route: subcutaneous Frequency: Every morning Rate/Duration: -- / -- Admin Instructions: Do not mix with other insulins Timestamps Action Dose Route / Site Other Information 11/19/19 08 Given 12 Units subcutaneous Left Upper Abdomen Performed by: Brenda Arita RN Scanned Package: 5281-8950-56 sodium chloride 0.9% flush 5-10 mL [[id number]] Ordering Provider: CARLOS Alvarado Status: Verified Ordered On: 11/19/191102 Start: 11/19/19 1400 Dose (Remaining/Total): 5-10 mL (--/--) Route: intra-catheter Frequency: Every 8 hours scheduled Rate/Duration: -- / -- Admin Instructions: Flush volume based on line type, size, and protocol. (No admins recorded for this medication) sodium chloride 0.9% flush 5-10 mL [[id number]] Ordering Provider: CARLOS Alvarado Status: Verified Ordered On: 11/19/191102 Start: 11/19/19 110 Dose (Remaining/Total): 5-10 mL (--/--) Route: intra-catheter Frequency: As needed Rate/Duration: -- / -- Admin Instructions: Flush volume based on line type, size, and protocol. (No admins recorded for this medication) lidocaine PF (XYLOCAINE) 10 mg/mL (1 %) preservative free injection 10-20 mg [[id number]] Ordering Provider: Nita Potter MD Status: Dispensed Ordered On: 11/19/191121 Starts/Ends: 11/19/191199 - 11/20/19 1200 Dose (Remaining/Total): 1-2 mL (03/13) Route: subcutaneous Frequency: Once Rate/Duration: -- / -- Admin Instructions: Administer to insertion site prior to procedure of local anesthesia. Administervolume needed to infiltrate site. (No admins recorded for this medication) sodium chloride 0.9% flush 5-10 mL [[id number]] Ordering Provider: Nita Potter MD Status: Verified Ordered On: 11/19/191121 Start: 11/19/19 1200 Dose (Remaining/Total): 5-10 mL (--/--) Route: intra-catheter Frequency: Every 12 hours scheduled Rate/Duration: -- / -- Admin Instructions: Flush volume based on line type, size, and protocol. Timestamps Action Dose Route Other Information 11/19/19 1305 Given 10 mL intra-catheter Performed by: Brenda Arita RN Scanned Package: [id number] sodium chloride 0.9% flush 5-20 mL [[id number]] Ordering Provider: Nita Potter MD Status: Verified Ordered On: 11/19/191121 Start: 11/19/191120 Dose (Remaining/Total): 5-20 mL (--/--) Route: intra-catheter Frequency: As needed Rate/Duration: -- / -- Admin Instructions: Flush volume based on line type, size, and protocol. (No admins recorded for this medication) * [facility] Note - Vandana Rider MSW - 11/19/2019 1:38 PM CDT Images from the original note were not included. 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) Code Status: FULL Ht: 157.5 cm (5' 2.01 ) Wt: 82.6 kg (182 lb 3.2 oz) Admission Cmt: None Principal Problem: None Elopement Risk Date/Time Elopement Risk User 11/07/19 0240 No risk EMB Intake/Output 11/16/19 07 - 11/17/19 0659 11/17/19 07 - 11/18/19 0659 11/18/19 07 - 11/19/19 0659 11/19/19 0700 - 11/20/19 0659 Total Total 0228-5128 5342-3099 1037-7756 Total 7674-5913 5903-7091 4911-8265 Total Intake (ml) 360 0 -- 120 0 120 710 -- -- 710 Output (ml) 950 3000 -- 500 1000 1500 -- -- -- -- Net (ml) -590 -3000 -- -380 -1000 -1380 710 -- -- 710 Patient Lines/Drains/Airways Status Active Airway / Central venous catheter / Drain / Epidural cathether / Intraosseous line / Peripherally inserted central catheter / Peripheral intravenous line / Arterial line Name: Placement date: Placement time: Site: Days: Urethral Catheter 11/07/19 0500 12 PICC Single Lumen 11/19/19 Non-tunneled Power Left Upper arm;Brachial 11/19/19 1123 less than 1 Patient Lines/Drains/Airways Status Active Wound / Pressure ulcer / Vivar / Negative Pressure Wound Pressure Ulcer/Pressure Injury 11/06/19 Transverse Sacrum Date First Assessed 11/06/19 Site: Sacrum Time First Assessed 0500 Days: 13 Present on Hospital Admission: Yes Location Orientation: Transverse Assessments 11/19/19 0911/19/19 0811/18/19209911/18/19 0811/17/191999 Pressure Ulcer Status -- -- -- Evolving -- Drainage Odor -- -- -- No odor -- Dressing Status Changed Clean/Dry/Intact Clean/Dry/Intact Clean/Dry/Intact Clean/Dry/Intact Dressing/Intervention Cleansed;Foam (Comment-type) Other (Comment) -- -- -- Wound Image Images linked: 1 -- -- -- -- Pressure Ulcer/Pressure Injury 11/07/19 Left Ischium Date First Assessed 11/07/19 Site: Ischium Time First Assessed 1518 Days: 11 Present on Hospital Admission: Yes Location Orientation: Left Assessments 11/19/19 0911/19/1982911/18/1980511/17/191999 Dressing Status Changed Clean/Dry/Intact Clean/Dry/Intact Clean/Dry/Intact Dressing/Intervention Cleansed;Foam (Comment-type) Other (Comment) -- -- Wound Image Images linked: 1 -- -- -- Pressure Ulcer/Pressure Injury 11/07/19 Left;Right Heel Date First Assessed 11/07/19 Site: Heel Time First Assessed 1519 Days: 11 Present on Hospital Admission: Yes Location Orientation: Left;Right Assessments 11/19/19 0811/18/19229911/18/1980511/17/192099 Pressure Ulcer Status -- Evolving -- Evolving Description -- Unstageable, full thickness tissue loss. The base of the ulcer is not visible due toslough and/or eschar. -- Unstageable, full thickness tissue loss. The base of the ulcer is not visible due to slough and/or eschar. Staging -- Unstageable -- Unstageable Mari-wound Assessment -- Black;Bleeding;Flaky -- Black;Bleeding;Fragile Drainage Amount -- Scant -- Small Drainage Description -- Serosanguineous -- Serosanguineous Drainage Odor -- Malodorous -- Foul Dressing Status Clean/Dry/Intact New;Changed;Clean/Dry/Intact Clean/Dry/Intact Changed;New Dressing/Intervention Other (Comment) Cleansed;Betadine paint -- Cleansed;Betadine paint Stokes Fall Risk Most Recent Value Auto Low/High - if selected proceed to interventions High risk-per unit/hospital protocol ............filed at 11/19/2019 0830 History of Falling 0 ............filed at 11/18/2019 0806 Secondary Diagnosis 15 ............filed at 11/18/2019 0806 Ambulatory Aids 0 ............filed at 11/18/2019 0806 Intravenous Therapy/Heparin/Saline Lock 20 ............filed at 11/18/2019 0806 Gait/Transferring 10 ............filed at 11/18/2019 0806 Mental Status 0 ............filed at 11/18/2019 0806 Stokes Fall Risk Score 50 ............filed at 11/19/2019 0830 Vital Signs 11/17 699 - 11/18 0659 11/18 07 - 11/18 1338 Most Recent Temp (??C) 36.3 - 37.1 36.5 - 36.7 36.7 (98.1) Pulse 64 - 74 66 - 68 68 Resp 20 18 18 SpO2 (%) 91 - 99 98 98 BP 110/44 - 132/60 115/59 - 134/72 134/72 MAP (mmHg) 61 - 85 79 - 94 94 Non Violent Restraint Most Recent Value Restraint Alternative Less Restrictive Alternative Comfort Measures filed at 11/14/2019 0600 Restraint Reason Restraint Type (NV) Every 2 Hours Default Flowsheet Data (most recent) Endurance Tests No documentation. Nursing Nutrition Feeding Level of Assistance 11/18 829 Needs set up Nursing Mobility Activity 11/18 1300 Resting in bed (Comment: eating lunch ) 11/18 1258 Resting in bed 11/18 1041 Other (Comment) (Comment: unable to enter room d/t procedure in process) 11/18 899 Resting in bed 11/19 0730 Resting in bed 11/18 08 Turn 11/18 07 Resting in bed 11/18 06 Sleeping 11/18 0500 Sleeping 11/18 0400 Sleeping 11/18 0300 Sleeping 11/18 0200 Sleeping 11/18 0100 Sleeping 11/18 0000 Sleeping 11/17 2300 Sleeping 11/17 2200 Resting in bed 11/17 2100 Resting in bed 11/17 1925 Resting in bed 11/17 1700 Resting in bed 11/17 1600 Resting in bed 11/17 1500 Resting in bed 11/17 1400 Resting in bed 11/17 1300 Resting in bed 11/17 1200 Resting in bed 11/17 1100 Resting in bed 11/17 1000 Resting in bed 11/17 0900 Resting in bed 11/17 0806 Resting in bed 11/17 0700 Resting in bed 11/17 0600 Resting in bed 11/17 0500 Sleeping 11/17 0400 Sleeping 11/17 0300 Sleeping 11/17 0200 Sleeping 11/17 0100 Sleeping 11/17 0000 Sleeping 11/16 2300 Sleeping 11/16 2200 Resting in bed;Sleeping 11/16 2100 Resting in bed 11/16 2000 Resting in bed 11/16 1800 Resting in bed 11/16 1700 Resting in bed 11/16 1600 Resting in bed 11/16 1500 Resting in bed 11/16 1400 Resting in bed 11/16 1300 Resting in bed 11/16 1200 Resting in bed 11/16 1100 Resting in bed 11/16 1000 Resting in bed 11/16 0900 Resting in bed 11/16 0800 Resting in bed 11/16 0700 Resting in bed 11/16 0600 Resting in bed 11/16 0420 Resting in bed 11/16 0200 Resting in bed 11/16 0054 Resting in bed 11/16 0012 Resting in bed 11/15 2345 Resting in bed 11/15 2200 Resting in bed 11/15 2000 Resting in bed 11/15 1800 Resting in bed 11/15 1700 Resting in bed 11/15 1600 Sleeping 11/15 1500 Sleeping 11/15 1400 Sleeping Level of Assistance 09/08 0900 Moderate assist, patient does 50-74% 11/18 0830 Moderate assist, patient does 50-74% 11/18 0700 Moderate assist, patient does 50-74% 11/18 0600 Moderate assist, patient does 50-74% 11/18 0500 Moderate assist, patient does 50-74% 11/18 0400 Moderate assist, patient does 50-74% 11/18 0300 Moderate assist, patient does 50-74% 11/18 0200 Moderate assist, patient does 50-74% 11/18 0100 Moderate assist, patient does 50-74% 11/18 0000 Moderate assist, patient does 50-74% 11/17 2300 Moderate assist, patient does 50-74% 11/17 2200 Moderate assist, patient does 50-74% 11/17 2100 Moderate assist, patient does 50-74% 11/17 1925 Moderate assist, patient does 50-74% 11/17 1700 Moderate assist, patient does 50-74% 11/17 1600 Moderate assist, patient does 50-74% 11/17 1500 Moderate assist, patient does 50-74% 11/17 1400 Moderate assist, patient does 50-74% 11/17 1300 Moderate assist, patient does 50-74% 11/17 1200 Moderate assist, patient does 50-74% 11/17 1100 Moderate assist, patient does 50-74% 11/17 1000 Moderate assist, patient does 50-74% 11/17 0900 Moderate assist, patient does 50-74% 11/17 0806 Moderate assist, patient does 50-74% 11/17 0700 Moderate assist, patient does 50-74% 11/17 0600 Moderate assist, patient does 50-74% 11/17 0500 Moderate assist, patient does 50-74% 11/17 0400 Moderate assist, patient does 50-74% 11/17 0300 Moderate assist, patient does 50-74% 11/17 0200 Moderate assist, patient does 50-74% 11/17 0100 Moderate assist, patient does 50-74% 11/17 0000 Moderate assist, patient does 50-74% 11/16 2300 Moderate assist, patient does 50-74% 11/16 2200 Moderate assist, patient does 50-74% 11/16 2100 Moderate assist, patient does 50-74% 11/16 2000 Moderate assist, patient does 50-74% 11/16 1700 Moderate assist, patient does 50-74% 11/16 1500 Moderate assist, patient does 50-74% 11/16 1300 Moderate assist, patient does 50-74% 11/16 1100 Moderate assist, patient does 50-74% 11/16 0900 Moderate assist, patient does 50-74% 11/16 0700 Moderate assist, patient does 50-74% 11/16 0600 Moderate assist, patient does 50-74% 11/16 0420 Moderate assist, patient does 50-74% 11/16 0200 Moderate assist, patient does 50-74% 11/16 0054 Moderate assist, patient does 50-74% 11/16 0012 Moderate assist, patient does 50-74% 11/15 2345 Moderate assist, patient does 50-74% 11/15 2200 Moderate assist, patient does 50-74% 11/15 2000 Moderate assist, patient does 50-74% 11/15 1800 Moderate assist, patient does 50-74% 11/15 1700 Moderate assist, patient does 50-74% 11/15 1600 Moderate assist, patient does 50-74% 11/15 1500 Moderate assist, patient does 50-74% 11/15 1400 Moderate assist, patient does 50-74% Assistive Device 11/18 829 Mechanical lift 11/18 0000 Mechanical lift 11/15 2000 Mechanical lift Repositioned 11/18 1300 Semi Greer's 11/18 1258 Supine 11/18 1041 Other (Comment) (Comment: unable to enter room d/t procedure in process) 11/18 0900 Right side;Pillow support 11/18 0830 Right side;Semi Greer's;Pillow support 11/18 0800 Right side;Pillow support 11/18 0700 Semi Greer's 11/18 0600 Right side 11/18 0500 Right side;Turns self 11/18 0400 Supine;Pillow support 11/18 0300 Turns self 11/18 0200 Left side;Pillow support 11/18 0100 Turns self 11/18 0000 Right side 11/17 2300 Turns self 11/17 2200 Turns self 11/17 2100 Turns self 11/17 1925 Left side;Pillow support 11/17 1700 Left side;Pillow support 11/17 1600 Left side;Pillow support 11/17 1500 Semi Greer's 11/17 1400 Semi Greer's 11/17 1300 Semi Greer's 11/17 1200 Left side;Semi Greer's 11/17 1100 Left side;Semi Greer's 11/17 1024 Left side;Pillow support 11/17 1000 Right side;Pillow support 11/17 0900 Right side;Pillow support 11/17 0806 Semi Greer's 11/17 0700 Right side;Pillow support 11/17 0600 Right side;Pillow support 11/17 0500 Right side 11/17 0400 Left side 11/17 0300 Left side 11/17 0200 Right side 11/17 0100 Right side 11/17 0000 Left side 11/16 2300 Left side 11/16 2200 Right side 11/16 2100 Right side 11/16 2000 Supine;Pillow support 11/16 1800 Left side 11/16 1700 Semi Greer's 11/16 1600 Right side 11/16 1500 Left side;Pillow support 11/16 1400 Left side;Pillow support (Comment: wedges ) 11/16 1300 Right side;Pillow support 11/16 1200 Sitting 11/16 1100 Left side 11/16 1000 Left side 11/16 0900 Right side 11/16 0800 Right side 11/16 0700 Supine 11/16 0600 Supine;Pillow support 11/16 0420 Left side;Pillow support 11/16 0200 Supine;Pillow support 11/16 0054 Left side;Pillow support 11/16 0012 Supine;Pillow support 11/15 2345 Supine;Pillow support 11/15 2200 Right side;Pillow support 11/15 2000 Left side 09 1800 Left side;Pillow support 11/15 1700 Left side;Pillow support 11/15 1600 Left side;Pillow support 11/15 1500 Left side 09 1400 Right side;Pillow support Positioning Frequency 11/18 1300 Every 2 hours 11/18 0900 Every 2 hours 11/18 0830 Every 2 hours 11/18 0800 Every 2 hours 11/18 0700 Every 2 hours 08 0600 Every 2 hours 08 0500 Every 2 hours 11/18 0400 Every 2 hours 11/18 0300 Able to turn self 11/18 0200 Every 2 hours 11/18 0100 Able to turn self 11/18 0000 Every 2 hours 11/17 2300 Able to turn self 11/17 2200 Able to turn self 11/17 2100 Able to turn self 11/17 1925 Every 2 hours 11/17 1700 Every 2 hours 11/17 1600 Every 2 hours 11/17 1500 Every 2 hours 11/17 1400 Every 2 hours 11/17 1300 Every 2 hours 11/17 1200 Every 2 hours 11/17 1100 Every 2 hours 11/17 1024 Every 2 hours 11/17 1000 Every 2 hours 09 0900 Every 2 hours 11/17 0806 Every 2 hours 11/17 0700 Every 2 hours 11/17 0600 Every 2 hours 11/17 0500 Every 2 hours 11/17 0400 Every 2 hours 11/17 0300 Every 2 hours 11/17 0200 Every 2 hours 11/17 0100 Every 2 hours 11/17 0000 Every 2 hours 11/16 2300 Every 2 hours 11/16 2200 Every 2 hours 11/16 2100 Every 2 hours 11/16 2000 Every 2 hours 11/16 1700 Every 2 hours 11/16 1500 Every 2 hours 11/16 1300 Able to turn self 11/16 1100 Able to turn self 11/16 0900 Able to turn self 11/16 0700 Every 2 hours 11/16 0600 Every 2 hours 11/16 0420 Every 2 hours 11/16 0200 Every 2 hours 11/16 0054 Every 2 hours 11/16 0012 Every 2 hours 11/15 2345 Every 2 hours 11/15 2200 Every 2 hours 11/15 2000 Every 2 hours 11/15 1800 Every 2 hours 11/15 1700 Every 2 hours 11/15 1600 Every 2 hours 11/15 1500 Every 2 hours 11/15 1400 Every 2 hours Head of Bed Elevated 11/18 1300 HOB 60 11/18 1258 HOB 60 11/18 899 HOB 30 11/18 0830 HOB 30 11/18 08 HOB 30 11/18 0700 HOB 30 11/18 0600 HOB 30 11/18 0500 HOB 30 11/18 0400 HOB 30 11/18 0300 HOB 30 11/18 0200 HOB 30 11/18 0100 HOB 30 11/17 2300 HOB 30 11/17 2200 Self regulated 11/17 2100 HOB 30 11/17 1925 HOB 30 11/17 1700 HOB 30 11/17 1600 HOB 30 11/17 1500 HOB 30 11/17 1400 HOB 30 11/17 1300 HOB 45 11/17 1200 HOB 45 11/17 1100 HOB 30 11/17 1024 HOB 30 11/17 1000 HOB 30 11/17 0900 HOB 30 11/17 0806 HOB 45 11/17 0700 HOB 30 11/17 0600 HOB 30 11/17 0500 HOB 30 11/17 0400 HOB 30 11/17 0300 HOB 30 11/17 0200 HOB 30 11/17 0100 HOB 30 11/17 0000 HOB 30 11/16 2300 HOB 30 11/16 2200 HOB 30 11/16 2100 HOB 30 11/16 2000 HOB 30 11/16 1700 Self regulated 11/16 1500 Self regulated 11/16 1300 Self regulated 11/16 1100 Self regulated 11/16 09 Self regulated 11/16 07 HOB 45 11/16 0600 HOB 45 11/16 0420 HOB 45 11/16 0200 HOB 45 11/16 0054 HOB 45 11/16 0012 HOB 45 11/15 2345 HOB 45 11/15 2200 HOB Flat 11/15 2000 HOB 30 11/15 1800 HOB 30 11/15 1700 HOB 30 11/15 1600 HOB 30 11/15 1500 HOB 30 11/15 1400 HOB 30 Heels/Feet 11/18 1300 Bilateral multi-podus boots 11/18 09 Bilateral multi-podus boots 11/18 0830 Bilateral heel protectors 11/18 08 Bilateral heel protectors 11/18 0700 Bilateral heel protectors 11/18 0600 Bilateral heel protectors 11/18 0400 Bilateral heel protectors 11/18 0200 Bilateral heel protectors 11/18 0000 Bilateral heel protectors 11/17 2200 Bilateral heel protectors 11/17 1925 Bilateral heel protectors 11/17 1700 Heels elevated off bed 11/17 1600 Heels elevated off bed;Foot of bed elevated;Bilateral multi-podus boots 11/17 1500 Foot of bed elevated 11/17 1400 Foot of bed elevated;Heels elevated off bed;Bilateral multi-podus boots 11/17 1300 Foot of bed elevated 11/17 1200 Foot of bed elevated;Heels elevated off bed;Bilateral multi-podus boots 11/17 1100 Heels elevated off bed 11/17 1024 Heels elevated off bed;Foot of bed elevated;Bilateral multi-podus boots 11/17 1000 Heels elevated off bed;Foot of bed elevated;Bilateral multi-podus boots 11/17 0900 Bilateral heel protectors 11/17 0806 Heels elevated off bed;Foot of bed elevated;Bilateral multi-podus boots 11/17 0700 Bilateral heel protectors 11/17 0600 Bilateral heel protectors 11/17 0400 Bilateral heel protectors 11/17 0200 Bilateral heel protectors 11/17 0000 Bilateral heel protectors 11/16 2200 Bilateral heel protectors 11/16 2000 Bilateral heel protectors 11/16 1700 Foot of bed elevated 11/16 1500 Foot of bed elevated 11/16 1300 Foot of bed elevated 11/16 1100 Foot of bed elevated 11/16 0900 Foot of bed elevated 11/16 0700 Bilateral heel protectors 11/16 0600 Bilateral heel protectors 11/16 0420 Bilateral heel protectors 11/16 0200 Bilateral heel protectors 11/16 0054 Bilateral heel protectors 11/16 0012 Bilateral heel protectors 11/15 2345 Bilateral heel protectors 11/15 2200 Bilateral heel protectors 11/15 2000 Bilateral heel protectors 11/15 1800 Heels elevated off bed;Foot of bed elevated;Bilateral multi-podus boots 11/15 1700 Heels elevated off bed 11/15 1600 Heels elevated off bed;Foot of bed elevated;Bilateral multi-podus boots 11/15 1500 Heels elevated off bed 11/15 1400 Heels elevated off bed;Foot of bed elevated;Bilateral multi-podus boots Range of Motion 11/18 1300 Active;All extremities 11/18 0900 Active;All extremities 11/18 0700 Active;All extremities 11/18 0600 Active;All extremities 11/18 0400 Active;All extremities 11/18 0200 Active;All extremities 11/18 0000 Active;All extremities 11/17 2200 Active;All extremities 11/17 1925 Active;All extremities 11/17 1500 Active;All extremities 11/17 1300 Active;All extremities 11/17 1100 Active;All extremities 11/17 0900 Active;All extremities 11/17 0700 Active;All extremities 11/17 0600 Active;All extremities 11/17 0400 Active;All extremities 11/17 0200 Active;All extremities 11/17 0000 Active;All extremities 11/16 2200 Active;All extremities 11/16 2000 Active;All extremities 11/16 1700 Active;All extremities 11/16 1500 Active;All extremities 11/16 1300 Active;All extremities 11/16 1100 Active;All extremities 11/16 0900 Active;All extremities 11/16 0700 Active;All extremities 11/16 0600 Active;All extremities 11/16 0420 Active;All extremities 11/16 0200 Active;All extremities 11/16 0054 Active;All extremities 11/16 0012 Active;All extremities 11/15 2345 Active;All extremities 11/15 2200 Active;All extremities 11/15 2000 Active;All extremities 11/15 1700 Active;All extremities Type of Device 11/18 829 Mechanical compression 11/17 1924 Mechanical compression 11/16 1999 Mechanical compression Mechanical Compression Site 11/18 829 Bilateral 11/17 1924 Bilateral 11/18 799 Bilateral 11/16 1999 Bilateral Mechanical Compression Type 11/18 829 IPC/SCD 11/17 1924 IPC/SCD 11/18 799 IPC/SCD 11/16 1999 IPC/SCD Mechanical Compression Status 11/18 829 On 11/17 1924 Off 11/18 799 On 11/16 1999 Off (Comment: pateint on Chemical prophylaxis. ) * Plan of Care - Reza Barahona RN - 11/19/2019 1:50 AM CDT Goals: Clinical Goals for the Shift: Monitor vitals/labs, safe environment, local wound care, PO and IV antibioitics, PICC line placement, turning schedule, kaplan care. Summary: Local wound care performed overnight, turning schedule ensured, patient rested comfortably, vitals have been stable, patient doing well on room air, has been afebrile. Plan for vascular access to place PICC line for long-term IV antibiotics per ID recommendations. Social work working on placement situation. Will continue to monitor and intervene as appropriate. Problem: Health Behavior: Goal: Understanding of discharge needs will improve Outcome: Progressing Problem: Lack of Knowledge: Goal: Ability to [...] improve to fullest extent possible Outcome: Progressing * Plan of Care - Rossana Santiago LPN - 11/18/2019 3:27 PM CDT Goals: Clinical Goals for the Shift: Monitor v/s, labs, safety, iv antibiotics and PICC line placement Summary: Patient vitals and labs stable. Patient complains of pain to legs and feet, PRN given and tolerated well. Patient remains in safe environment. Patient breathing stable on room air. Patient continues on iv antibiotics. Patient still waiting to have PICC line placed. Patient will remain herefor observation. Problem: Health Behavior: Goal: Understanding of discharge needs will improve Outcome: Progressing Problem: Lack of Knowledge: Goal: Ability to [...] improve to fullest extent possible Outcome: Progressing * Plan of Care - Reza Barahona RN - 11/18/2019 4:59 AM CDT Goals: Clinical Goals for the Shift: Stable vitals/labs/tele, moniitor on room air, kaplan care, safe environment, turning schedule, monitor blood glucose. Summary: Vitals stable overnight, patient doing well on room air, has been afebrile. Local wound care performed, kaplan care done, turning schedule ensured. Patient will need PICC line placed prior to discharge for long-term antibiotics, ID is consulted and has been following. Consult to vascular access has been placed. PRN Tylenol given for pain. Will continue to monitor. * Plan of Care - Joselin Heck LPN - 11/17/2019 6:50 PM CDT Problem: Health Behavior: Goal: Understanding of discharge needs will improve Outcome: Progressing Problem: Lack of Knowledge: Goal: Ability to [...] Progressing Goals: Clinical Goals for the Shift: Monitor accurate i/o, Provide safe environment, Wound management, pressure relief, moisture management, Kaplan/mari care, PICC line placement plans, discharge planning Summary: Pt with wound care given this morning after given bath. Pt turned q2hr on turning schedule. Pt with decreased lantus today after hypoglycemic episode overnight. * Plan of Care - Reza Barahona RN - 11/17/2019 4:36 AM CDT Goals: Clinical Goals for the Shift: Stable vitals/labs, monitor on room air, IV and PO antibiotics per IDrecommendations, kaplan care, PICC line placement, local wound care, monitor blood glucose, safe environment with fall precautions. Summary: Vitals stable overnight, patient is doing well on room air, has been afebrile, patient with complaints of pain in legs overnight, PRN tylenol provided with relief, turning schedule ensured overnight.ID service is following for positive blood cultures and wound infections. Recommendations are dailyIV Ceftriaxone and PO metronidazole for six weeks. Patient is to have PICC line placed before discharge for long-term IV antibiotics. Local wound care has been performed, Blood sugars have been stable, kaplan care also performed, patient has a chronic kaplan. Social work currently trying to find new SNF as family does not wish for patient to return to previous facility. No other complaints or concerns at this time, will continue to monitor closely and intervene as appropriate. Problem: Health Behavior: Goal: Understanding of discharge needs will improve Outcome: Progressing Problem: Lack of Knowledge: Goal: Ability to [...] improve to fullest extent possible Outcome: Progressing * Plan of Luz - Rossana Santiago LPN - 11/16/2019 3:03 PM CDT Goals: Clinical Goals for the Shift: Monitor v/s, labs, safety, BS, and wounds Summary: Patient vitals and labs stable. Patient denies any pain or discomfort at this time. Patient remains in safe environment. Patient BS stable. Patient wound care completed as ordered. Patient to get PICC line to be placed Monday. Patient will remain here for observation . Problem: Health Behavior: Goal: Understanding of discharge needs will improve Outcome: Progressing Problem: Lack of Knowledge: Goal: Ability to [...] improve to fullest extent possible Outcome: Progressing * Plan of Luz - Lissa Hernandez RN - 11/16/2019 3:29 AM CDT Problem: Health Behavior: Goal: Understanding of discharge needs will improve Outcome: Progressing Problem: Lack of Knowledge: Goal: Ability to [...] Progressing Goals: Clinical Goals for the Shift: manage poct glucose results. maintain safety. stable vs Summary: patient remains on room air, no complaints of shortness of breath or chest pain noted. Resting comfortably on the bed, turned every 2 hours. Continued to monitor the patient * Plan of Care - Brenda Arita RN - 11/15/2019 6:50 PM CDT Problem: Health Behavior: Goal: Understanding of discharge needs will improve Outcome: Progressing Problem: Lack of Knowledge: Goal: Ability to [...] Progressing Goals: Clinical Goals for the Shift: maintian safe enviroment, montior v/s, monitor labs, wound care Summary:pt is in bed resting with no complaints at this time. Pt is a and o x4, sat >90% on ra. Pt v/s are stable. Pt did have c/o leg pain earlier today. She received tylenol and upon reassessment stated that it helped. Will continue to monitor pt. Brenda Arita RN * Plan of Care - Erwin Francis MSW - 11/15/2019 3:20 PM CDT OCCUPATIONAL THERAPY ASSISTANT received phone call from pt's daughter, Ailyn today. Ailyn stated that she was the caregiver for pt in the past and prefer for pt to return back home with her once pt is done quarantining. Pt'sdaughter stated that pt had HHC and chore services in the past. Pt's daughter stated that she worksin the morning and that she will care for pt after her shift. Pt has walker and shower chair at home. Pt's daughter stated that pt didn't have any foot wounds prior to going to correction. While discussing discharge planning with pt's daughter, pt's daughter phone disconnected. OCCUPATIONAL THERAPY ASSISTANT called pt's daughter, Ailyn back. Pt's daughter phone went to . OCCUPATIONAL THERAPY ASSISTANT left a message. OCCUPATIONAL THERAPY ASSISTANT will continue to work on discharge planning. * Plan of Care - Erwin Francis MSW - 11/15/2019 10:58 AM CDT OCCUPATIONAL THERAPY ASSISTANT returned pt's son phone call today. Pt's son stating that his sister Ailyn will like to take pt home at discharge. OCCUPATIONAL THERAPY ASSISTANT advised pt's son that pt needs 24 hour care. Pt's son stated that pt has noDME at the house and will need DME if pt return home with family. Pt's son stated that Ailyn will call OCCUPATIONAL THERAPY ASSISTANT to discuss furthermore. * Plan of Care - Lissa Hernandez RN - 11/15/2019 5:33 AM CDT Problem: Health Behavior: Goal: Understanding of discharge needs will improve Outcome: Progressing Problem: Lack of Knowledge: Goal: Ability to [...] Progressing Goals: Clinical Goals for the Shift: maintain safety, stable vs, improve nutrition Summary: remains on room air. No complaints of shortness of breath or chest pain. Turned every 2 hours, wound care done at both heels. Patien twith fair appetite. Continued to monitor the patient * [facility] Note - Erwin Francis MSW - 11/14/2019 8:42 AM CDT Patient Information: Patient Header Patient Information Patient Name: IRIS GIL Date of 1955 (64 years) Sex: Female Phone Numbers: Home: , Meds and Admin Active Only All Meds/Most Recent Administrations piperacillin-tazobactam (ZOSYN) 3.375 g in sodium chloride 0.9% 100 mL IVPB [[id number]] Ordering Provider: Sina Schilling MD Status: Completed (Past End Date/Time) Ordered On: 11/06/191853 Starts/Ends: 11/06/191853 - 11/06/192004 Dose (Remaining/Total): 3.375 g (0/1) Route: intravenous Frequency: Once Rate/Duration: 200 mL/hr / 30 Minutes Admin Instructions: Mini-Bag Plus bag Timestamps Action Dose / Rate / Duration Route Other Information 11/06/191934 New Bag 3.375 g 200 mL/hr 30 Minutes intravenous Performed by: Holly Caba RN Scanned Package: [id number], [id number] sodium chloride 0.9% flush 0.5-20 mL [[id number]] Ordering Provider: Sina Schilling MD Status: Verified Ordered On: 11/07/1949 Start: 11/07/19129 Dose (Remaining/Total): 0.5-20 mL (--/--) Route: intra-catheter Frequency: Every 8 hours scheduled Rate/Duration: -- / -- Admin Instructions: Flush volume based on line type and size. Timestamps Action Dose Route Other Information 11/14/19 0641 Given 10 mL intra-catheter Performed by: Farrah Cohen RN Scanned Package: [id number] sodium chloride 0.9% flush 0.5-20 mL [[id number]] Ordering Provider: Sina Schilling MD Status: Verified Ordered On: 11/07/1949 Start: 11/07/1949 Dose (Remaining/Total): 0.5-20 mL (--/--) Route: intra-catheter Frequency: As needed Rate/Duration: -- / -- Admin Instructions: Flush volume based on line type and size. Flush before and after each use. (No admins recorded for this medication) ondansetron ODT (ZOFRAN-ODT) disintegrating tablet 4 mg [[id number]] Ordering Provider: Sina Schilling MD Status: Verified Ordered On: 11/07/1949 Start: 11/07/1949 Dose (Remaining/Total): 4 mg (--/--) Route: oral Frequency: Every 6 hours PRN Rate/Duration: -- / -- (No admins recorded for this medication) ondansetron (ZOFRAN) injection 4 mg [[id number]] Ordering Provider: Sina Schilling MD Status: Verified Ordered On: 11/07/1949 Start: 11/07/1949 Dose (Remaining/Total): 4 mg (--/--) Route: intravenous Frequency: Every 6 hours PRN Rate/Duration: -- / 2 Minutes (No admins recorded for this medication) docusate sodium (COLACE) capsule 100 mg [[id number]] Ordering Provider: Sina Schilling MD Status: Verified Ordered On: 11/07/1949 Start: 08/27/20 0050 Dose (Remaining/Total): 100 mg (--/--) Route: oral Frequency: 2 times daily PRN Rate/Duration: -- / -- (No admins recorded for this medication) sodium chloride 0.9% bolus 1,000 mL [[id number]] Ordering Provider: Sina Schilling MD Status: Completed (Past End Date/Time) Ordered On: 11/06/192107 Starts/Ends: 11/06/192108 - 11/06/192227 Dose (Remaining/Total): 1,000 mL (0/1) Route: intravenous Frequency: Once Rate/Duration: 1,000 mL/hr / 1 Hours Line Med Link Info Comment Peripheral IV 11/06/19 18 G Right Arm 11/06/192127 by Holly Caba RN -- Timestamps Action Dose / Rate / Duration Route Other Information 11/06/192127 New Bag 1,000 mL 1,000 mL/hr 1 Hours intravenous Performed by: Holly Caba RN Scanned Package: [id number] amLODIPine (NORVASC) tablet 10 mg [[id number]] Ordering Provider: Zack Johnson NP Status: Dispensed Ordered On: 11/07/1926 Start: 11/07/19 0900 Dose (Remaining/Total): 10 mg (--/--) Route: oral Frequency: Daily Rate/Duration: -- / -- Timestamps Action Dose Route Other Information 11/13/19 0756 Given 10 mg oral Performed by: Khalif Ricks RN Scanned Package: [id number] atorvastatin (LIPITOR) tablet 40 mg [[id number]] Ordering Provider: Zack Johnson NP Status: Dispensed Ordered On: 11/07/1926 Start: 11/07/19 2100 Dose (Remaining/Total): 40 mg (--/--) Route: oral Frequency: Nightly Rate/Duration: -- / -- Timestamps Action Dose Route Other Information 11/13/192128 Given 40 mg oral Performed by: Farrah Cohen RN Scanned Package: [id number] insulin glargine (LANTUS) injection 15 Units [[id number]] Ordering Provider: Zack Johnson NP Status: Verified Ordered On: 11/07/1926 Start: 11/07/19899 Dose (Remaining/Total): 15 Units (--/--) Route: subcutaneous Frequency: Every morning Rate/Duration: -- / -- Admin Instructions: Do not mix with other insulins Timestamps Action Dose Route / Site Other Information 11/13/19757 Given 15 Units subcutaneous Left Lower Abdomen Performed by: Khalif Ricks RN Scanned Package: [id number] aspirin tablet 325 mg [[id number]] Ordering Provider: Zack Johnson NP Status: Dispensed Ordered On: 11/07/1949 Start: 11/07/19899 Dose (Remaining/Total): 325 mg (--/--) Route: oral Frequency: Daily Rate/Duration: -- / -- Timestamps Action Dose Route Other Information 11/13/19755 Given 325 mg oral Performed by: Khalif Ricks RN Scanned Package: [id number] chlorthalidone tablet 25 mg [[id number]] Ordering Provider: Zack Johnson NP Status: Dispensed Ordered On: 11/07/1949 Start: 11/07/19899 Dose (Remaining/Total): 25 mg (--/--) Route: oral Frequency: Daily Rate/Duration: -- / -- Timestamps Action Dose Route Other Information 11/13/19755 Given 25 mg oral Performed by: Khalif Ricks RN Scanned Package: [id number] (PROTONIX) extended release tablet 40 mg [[id number]] Ordering Provider: Zack Johnson NP Status: Dispensed Ordered On: 11/07/1949 Start: 11/07/19899 Dose (Remaining/Total): 40 mg (--/--) Route: oral Frequency: Daily Rate/Duration: -- / -- Admin Instructions: Do not crush, chew, cut, dissolve, open or otherwise manipulate tablet/capsule. Timestamps Action Dose Route Other Information 11/13/19755 Given 40 mg oral Performed by: Khalif Ricks RN Scanned Package: 27235-301-58 polyethylene glycol (MIRALAX) packet 17 g [[id number]] Ordering Provider: Zack Johnson NP Status: Dispensed Ordered On: 11/07/1949 Start: 11/07/19899 Dose (Remaining/Total): 17 g (--/--) Route: oral Frequency: Daily Rate/Duration: -- / -- Timestamps Action Dose Route Other Information 11/13/19 0756 Given 17 g oral Performed by: Khalif Ricks RN Scanned Package: 6990-1193-52 levothyroxine (SYNTHROID) tablet 50 mcg [[id number]] Ordering Provider: Zack Johnson NP Status: Dispensed Ordered On: 11/07/1949 Start: 11/07/19599 Dose (Remaining/Total): 50 mcg (--/--) Route: oral Frequency: Daily (early AM) Rate/Duration: -- / -- Admin Instructions: Administer on an empty stomach, preferably 30 minutes before breakfast. Take 4 hours apart from antacids, iron and calcium products. Timestamps Action Dose Route Other Information 11/14/19639 Given 50 mcg oral Performed by: Farrah Cohen RN Scanned Package: 20973-484-33 gabapentin (NEURONTIN) capsule 300 mg [[id number]] Ordering Provider: Zack Johnson NP Status: Dispensed Ordered On: 11/07/1949 Start: 11/07/19899 Dose (Remaining/Total): 300 mg (--/--) Route: oral Frequency: 3 times daily Rate/Duration: -- / -- Timestamps Action Dose Route Other Information 11/13/192128 Given 300 mg oral Performed by: Farrah Cohen RN Scanned Package: 9661-7466-65 dextrose oral liquid liquid 15 g [[id number]] Ordering Provider: Zack Johnson NP Status: Verified Ordered On: 11/07/1949 Start: 11/07/1949 Dose (Remaining/Total): 15 g (--/--) Route: oral Frequency: Every 15 min PRN Rate/Duration: -- / -- Admin Instructions: If patient is alert and able to eat/drink, give 15 gm glucose or one juice (4 fluid ounces) NOT ORANGE JUICE. After treatment for hypoglycemia, recheck BG followed by treatment every 15 minutes until the BG is greater than 100 mg/dL. Then check BG 1 hour post-treatment. If BG isless than 100 mg/dL, repeat Q15 minute BG checks and treatment. Call MD for each episode of hypoglycemia. (No admins recorded for this medication) dextrose (D10W) 10% bolus 250 mL [[id number]] Ordering Provider: Zack Johnson NP Status: Verified Ordered On: 11/07/1949 Start: 11/07/1949 Dose (Remaining/Total): 250 mL (--/--) Route: intravenous Frequency: Every 15 min PRN Rate/Duration: 1,000 mL/hr / 15 Minutes Admin Instructions: After treatment for hypoglycemia, recheck BG followed by treatment every 15 minutes until the BG is greater than 100 mg/dL. Then check BG 1 hour post treatment. If BG is less [id number] mg/dL, repeat Q15 minute BG checks and treatment. Call MD for each episode of hypoglycemia. (No admins recorded for this medication) glucagon injection 1 mg [[id number]] Ordering Provider: Zack Johnson NP Status: Verified Ordered On: 11/07/1949 Start: 11/07/1949 Dose (Remaining/Total): 1 mg (--/--) Route: intramuscular Frequency: Every 30 min PRN Rate/Duration: -- / 1 Minutes Admin Instructions: After Glucagon is administered, position patient on side if possible to avoid aspiration. Obtain IV access. Follow glucagon treatment with glucose treatment or IV dextrose. After treatment for hypoglycemia, recheck BG followed by treatment every 15 minutes until the BG isgreater than 100 mg/dL. Then check BG 1 hour post treatment. If BG is less than 100 mg/dL, repeat Q15 minute BG checks and treatment. Call MD for each episode of hypoglycemia. (No admins recorded for this medication) vancomycin (VANCOCIN) 1,750 mg in sodium chloride 0.9% 500 mL IVPB [[id number]] Ordering Provider: Zack Johnson NP Status: Completed (Past End Date/Time) Ordered On: 11/07/1949 Starts/Ends: 11/07/19129 - 08/27/20 0526 Dose (Remaining/Total): 1,750 mg (0/1) Route: intravenous Frequency: Once Rate/Duration: 258.8 mL/hr / 120 Minutes Timestamps Action Dose / Rate / Duration Route Other Information 11/07/19 0326 New Bag 1,750 mg 258.8 mL/hr 120 Minutes intravenous Performed by: Ludmila Casas RN hydrALAZINE (APRESOLINE) tablet 25 mg [[id number]] Ordering Provider: Zack Johnson NP Status: Completed (Past End Date/Time) Ordered On: 11/07/19 0053 Starts/Ends: 11/07/19 0130 - 11/07/19 0200 Dose (Remaining/Total): 25 mg (0/1) Route: oral Frequency: Once Rate/Duration: -- / -- Timestamps Action Dose Route Other Information 11/07/19 020 Given 25 mg oral Performed by: Ludmila Casas RN sodium chloride 0.9% IVPB 0-250 mL [[id number]] Ordering Provider: Reji Whittaker MD Status: Verified (Past End Date/Time) Ordered On: 11/07/191749 Starts/Ends: 11/07/191829 - 11/08/19 183 Dose (Remaining/Total): 0-250 mL (1) Route: intravenous Frequency: Once Rate/Duration: -- / -- Admin Instructions: Prime blood tubing and administer amount needed to clear line (usually 50-100 mL) after transfusion complete. (No admins recorded for this medication) sodium chloride 0.9% 0.9% infusion - ADS Override Pull [[id number]] Status: Completed (Past End Date/Time) Ordered On: 11/08/19113 Starts/Ends: 11/08/19 0114 - 11/08/19 0245 Dose (Remaining/Total): -- (01) Route: -- Frequency: -- Rate/Duration: -- / -- Admin Instructions: Created by cabinet override Note to pharmacy: Created by cabinet override Timestamps Action Dose Route / Site / Linked Line Other Information 11/08/19 0245 New Bag 500 mL -- Performed by: Rebecca Ortega RN Comments: pulled for use with blood transfusion Scanned Package: [id number] enoxaparin (LOVENOX) syringe 40 mg [[id number]] Ordering Provider: Reji Whittaker MD Status: Dispensed Ordered On: 11/08/19 1443 Start: 11/08/19 2100 Dose (Remaining/Total): 40 mg (--/--) Route: subcutaneous Frequency: Daily (for enoxaparin) Rate/Duration: -- / -- Admin Instructions: Per [facility] Dosing and Monitoring Policy Lovenox for DVT prevention was increased to 40mg for CrCl > 30 mL/min Timestamps Action Dose Route / Site Other Information 11/13/192128 Given 40 mg subcutaneous Left Lower Abdomen Performed by: Farrah Cohen RN Scanned Package: [id number] ioversoL (OPTIRAY 350) syringe syringe 100 mL [[id number]] Ordering Provider: Markel Bourgeois MD Status: Completed (Past End Date/Time) Ordered On: 11/08/191723 Starts/Ends: 11/08/191723 - 11/08/191756 Dose (Remaining/Total): 100 mL (0/1) Route: intravenous Frequency: Once in imaging Rate/Duration: -- / -- Line Med Link Info Comment Peripheral IV 11/06/19 18 G Right Arm 11/08/191756 by RT Toya -- Timestamps Action Dose Route Other Information 11/08/191756 Given 97 mL intravenous Performed by: Ramez Red, RT Scanned Package: [id number] insulin lispro (HumaLOG, ADMELOG) injection 7 Units [[id number]] Ordering Provider: Reji Whittaker MD Status: Completed (Past End Date/Time) Ordered On: 11/09/19 1220 Starts/Ends: 11/09/19 1300 - 11/09/19 122 Dose (Remaining/Total): 7 Units (0/1) Route: subcutaneous Frequency: Once Rate/Duration: -- / -- Timestamps Action Dose Route / Site Other Information 11/09/191222 Given 7 Units subcutaneous Right Lower Abdomen Performed by: Lety Olguin RN Scanned Package: 4357-3010-81 acetaminophen (TYLENOL) tablet 650 mg [[id number]] Ordering Provider: Reji Whittaker MD Status: Dispensed Ordered On: 11/09/191840 Start: 11/09/191840 Dose (Remaining/Total): 650 mg (--/--) Route: oral Frequency: Every 6 hours PRN Rate/Duration: -- / -- (No admins recorded for this medication) dextrose oral liquid liquid 15 g [[id number]] Ordering Provider: Reji Whittaker MD Status: Verified Ordered On: 11/10/19940 Start: 11/10/19935 Dose (Remaining/Total): 15 g (--/--) Route: oral Frequency: Every 15 min PRN Rate/Duration: -- / -- Admin Instructions: If patient is alert and able to eat/drink, give 15 gm glucose or one juice (4 fluid ounces) NOT ORANGE JUICE. After treatment for hypoglycemia, recheck BG followed by treatment every 15 minutes until the BG is greater than 100 mg/dL. Then check BG 1 hour post-treatment. If BG isless than 100 mg/dL, repeat Q15 minute BG checks and treatment. Call MD for each episode of hypoglycemia. (No admins recorded for this medication) dextrose (D10W) 10% bolus 250 mL [[id number]] Ordering Provider: Reji Whittaker MD Status: Verified Ordered On: 11/10/19940 Start: 11/10/19935 Dose (Remaining/Total): 250 mL (--/--) Route: intravenous Frequency: Every 15 min PRN Rate/Duration: 1,000 mL/hr / 15 Minutes Admin Instructions: After treatment for hypoglycemia, recheck BG followed by treatment every 15 minutes until the BG is greater than 100 mg/dL. Then check BG 1 hour post treatment. If BG is less iyrw303 mg/dL, repeat Q15 minute BG checks and treatment. Call MD for each episode of hypoglycemia. (No admins recorded for this medication) glucagon injection 1 mg [[id number]] Ordering Provider: Reji Whittaker MD Status: Verified Ordered On: 11/10/19940 Start: 08/30/20 0936 Dose (Remaining/Total): 1 mg (--/--) Route: intramuscular Frequency: Every 30 min PRN Rate/Duration: -- / 1 Minutes Admin Instructions: After Glucagon is administered, position patient on side if possible to avoid aspiration. Obtain IV access. Follow glucagon treatment with glucose treatment or IV dextrose. After treatment for hypoglycemia, recheck BG followed by treatment every 15 minutes until the BG isgreater than 100 mg/dL. Then check BG 1 hour post treatment. If BG is less than 100 mg/dL, repeat Q15 minute BG checks and treatment. Call MD for each episode of hypoglycemia. (No admins recorded for this medication) insulin lispro (HumaLOG, ADMELOG) injection 1-5 Units [[id number]] Ordering Provider: Reji Whittaker MD Status: Verified Ordered On: 11/10/19940 Start: 11/10/19 1200 Dose (Remaining/Total): 1-5 Units (--/--) Route: subcutaneous Frequency: 3 times daily with meals Rate/Duration: -- / -- Admin Instructions: Blood Sugar Mid Dose meal time - PO patients 139 or less No insulin 140 - 175 1 unit 176 - 200 2 unit 201 - 250 3 units 251 - 299 5 units Greater than 299 Call MD for hyperglycemia management instructions Do NOT hold for NPO status. Timestamps Action Dose Route / Site Other Information 11/14/19 0646 Given 1 Units subcutaneous Left Lower Abdomen Performed by: Farrah Cohen RN Scanned Package: [id number] insulin lispro (HumaLOG, ADMELOG) injection 1-3 Units [[id number]] Ordering Provider: Reji Whittaker MD Status: Verified Ordered On: 11/10/19940 Start: 11/10/19 2100 Dose (Remaining/Total): 1-3 Units (--/--) Route: subcutaneous Frequency: Nightly Rate/Duration: -- / -- Admin Instructions: Blood Sugar Mid Dose PM - PO patients 175 or less No insulin 176 - 200 1 unit 201 - 250 2 units 251 - 299 3 units Greater than 299 Call MD for hyperglycemia management instructions Do NOT hold for NPO status. Timestamps Action Dose Route / Site Other Information 11/13/192128 Given 2 Units subcutaneous Left Lower Abdomen Performed by: Farrah Cohen RN Scanned Package: [id number] cloNIDine (CATAPRES) tablet 0.1 mg [[id number]] Ordering Provider: Reji Whittaker MD Status: Dispensed Ordered On: 11/10/191649 Start: 11/10/19 1648 Dose (Remaining/Total): 0.1 mg (--/--) Route: oral Frequency: Every 6 hours PRN Rate/Duration: -- / -- Timestamps Action Dose Route Other Information 11/10/19 165 Given 0.1 mg oral Performed by: Lety Olguin RN Scanned Package: [id number] cefTRIAXone (ROCEPHIN) 2,000 mg/20 mL in sterile water (premix) 2,000 mg [[id number]] Ordering Provider: Markel Bourgeois MD Status: Dispensed Ordered On: 11/12/191421 Start: 11/12/19 1500 Dose (Remaining/Total): 2,000 mg (--/--) Route: intravenous Frequency: Every 24 hours scheduled Rate/Duration: 1,200 mL/hr / 1 Minutes Line Med Link Info Comment Peripheral IV 11/12/19 22 G Left;Posterior Hand 11/12/19 1529 by Rossana Santiago LPN -- Timestamps Action Dose / Rate / Duration Route Other Information 11/13/19 0756 Given 2,000 mg 1,200 mL/hr 1 Minutes intravenous Performed by: Khalif Ricks RN Scanned Package: 5814-4994-52, 9502-3292-01 metroNIDAZOLE (FLAGYL) tablet 500 mg [[id number]] Ordering Provider: Markel Bourgeois MD Status: Dispensed Ordered On: 11/12/191421 Start: 11/12/19 1600 Dose (Remaining/Total): 500 mg (--/--) Route: oral Frequency: 3 times daily Rate/Duration: -- / -- Timestamps Action Dose Route Other Information 11/13/192128 Given 500 mg oral Performed by: Farrah Cohen RN Scanned Package: 08252-544-76 , Wound Info Only Patient Lines/Drains/Airways Status Active Wound / Pressure ulcer / Vivar / Negative Pressure Wound Pressure Ulcer/Pressure Injury 11/06/19 Transverse Sacrum Date First Assessed 11/06/19 Site: Sacrum Time First Assessed 0500 Days: 8 Present on Hospital Admission: Yes Location Orientation: Transverse Assessments 11/13/19199911/13/19 0756 11/12/19 19:24:49 11/12/19 0850 Pressure Ulcer Status Unchanged Evolving -- Evolving Description Unstageable, full thickness tissue loss. The base of the ulcer is not visible due to slough and/or eschar. Non-intact, subcutaneous fat visible (c/w Stage 3) -- -- Staging Stage 3 Stage 3 -- -- Mari-wound Assessment Flaky;Fragile -- MEÑO -- Margins MEÑO -- MEÑO -- Drainage Amount None -- MEÑO -- Drainage Description -- -- MEÑO -- Drainage Odor No odor -- -- -- Dressing Status Clean/Dry/Intact Clean/Dry/Intact Clean/Dry/Intact Clean/Dry/Intact Dressing/Intervention -- -- Foam (Comment-type) -- Pressure Ulcer/Pressure Injury 11/07/19 Left Ischium Date First Assessed 11/07/19 Site: Ischium Time First Assessed 1518 Days: 6 Present on Hospital Admission: Yes Location Orientation: Left Assessments 11/13/19199911/13/19 0756 11/12/19 19:24:49 11/12/19 0850 Pressure Ulcer Status Unchanged -- -- Unchanged Description Unstageable, full thickness tissue loss. The base of the ulcer is not visible due to slough and/or eschar. -- -- -- Staging Unstageable Unstageable -- -- Mari-wound Assessment Flaky;Fragile -- MEÑO -- Margins MEÑO -- MEÑO -- Drainage Amount None -- MEÑO -- Drainage Description MEÑO -- MEÑO -- Drainage Odor No odor -- -- -- Dressing Status Clean/Dry/Intact Clean/Dry/Intact Clean/Dry/Intact Clean/Dry/Intact Dressing/Intervention -- -- Foam (Comment-type) -- Pressure Ulcer/Pressure Injury 11/07/19 Left;Right Heel Date First Assessed 11/07/19 Site: Heel Time First Assessed 1519 Days: 6 Present on Hospital Admission: Yes Location Orientation: Left;Right Assessments 11/13/19199911/13/19 1600 11/13/19 0756 11/12/19 19:24:49 11/12/19 0850 Pressure Ulcer Status Unchanged Deteriorating Deteriorating -- Deteriorating Description Unstageable, full thickness tissue loss. The base of the ulcer is not visible due to slough and/or eschar. Unstageable, full thickness tissue loss. The base of the ulcer is not visible due to slough and/or eschar. Unstageable, full thickness tissue loss. The base of the ulcer is not visible due to slough and/or eschar. -- -- Staging Unstageable Unstageable Unstageable -- -- Mari-wound Assessment MEÑO Fragile;Other (Comment);Black -- MEÑO -- Margins MEÑO Unattached edges -- MEÑO -- Drainage Amount MEÑO Scant -- MEÑO -- Drainage Description MEÑO MEÑO -- MEÑO -- Drainage Odor -- Malodorous -- -- -- Dressing Status Clean/Dry/Intact New;Changed Clean/Dry/Intact Clean/Dry/Intact Clean/Dry/Intact Dressing/Intervention -- Moist to dry;Betadine paint;Gauze 4x4;Gauze rolled ABD pad;Gauze 4x4 ABD pad;Gauze 4x4 -- , Vitals Info Only Vital Signs 11/12 699 - 11/13 0659 11/13 699 - 11/13 0842 Most Recent Temp (??C) 36.2 - 36.5 37 37 (98.6) Pulse 62 - 74 72 Resp 15 - 17 20 20 SpO2 (%) 91 - 98 99 99 BP 118/48 - 157/59 117/52 117/52 MAP (mmHg) 62 - 90 71 , Oxygen Info Only Default Flowsheet Data (most recent) Endurance Tests No documentation. Default Flowsheet Data (last 48 hours) Oxygen Row Name 11/14/19 08:02:01 11/14/19 0600 11/14/19 05:36:29 11/14/19 0331 11/14/19 0200 Oxygen Therapy/Pulse Ox O2 Therapy None (Room air) None (Room air) None (Room air) None (Room air) None (Room air) SpO2 99 % -- 96 % -- -- Patient Activity -- At rest -- At rest At rest Row Name 11/14/19 00:05:18 11/13/19219911/13/19 20:49:31 11/13/19199911/13/19 15:40:36 Oxygen Therapy/Pulse Ox O2 Therapy None (Room air) None (Room air) None (Room air) None (Room air) None (Room air) SpO2 96 % -- 97 % -- 98 % Patient Activity At rest At rest -- At rest -- Row Name 11/13/19 12:20:48 11/13/19 07:34:45 11/13/19 03:22:54 11/12/19 23:46:40 11/12/19 19:24:49 Oxygen Therapy/Pulse Ox O2 Therapy None (Room air) None (Room air) None (Room air) None (Room air) None (Room air) SpO2 94 % 91 % 96 % 95 % 97 % Patient Activity -- -- At rest At rest At rest Row Name 11/12/19 15:57:39 11/12/19 11:11:52 11/12/19 0850 Oxygen Therapy/Pulse Ox O2 Therapy None (Room air) None (Room air) None (Room air) SpO2 93 % 94 % -- * Plan of Care - Erwin Francis MSW - 11/14/2019 8:42 AM CDT OCCUPATIONAL THERAPY ASSISTANT sent updates to facility via [facility]. * Plan of Care - Farrah Cohen RN - 11/14/2019 7:57 AM CDT Problem: Health Behavior: Goal: Understanding of discharge needs will improve 11/14/2019756 by Farrah Cohen RN Outcome: Progressing 11/14/2019755 by Farrah Cohen RN Outcome: Adequate for Discharge Problem: Lack of Knowledge: Goal: Ability to state ways to decrease the risk of falls will improve 11/14/2019756 by Farrah Cohen RN Outcome: Progressing 11/14/2019755 by Farrah Cohen RN Outcome: Adequate for Discharge Problem: Safety: Goal: Will remain free from falls 11/14/2019 0757 by Farrah Cohen RN Outcome: Progressing 11/14/2019 0756 by Farrah Cohen RN Outcome: Adequate for Discharge Goal: Will remain free from injury from falls 11/14/2019 0757 by Farrah Cohen, RN Outcome: Progressing 11/14/2019 0756 by Farrah Cohen RN Outcome: Adequate for Discharge Goal: Will remain free from falls and injury in home environment 11/14/2019 0757 by Farrah Cohen RN Outcome: Progressing 11/14/2019 075 by Farrah Cohen RN Outcome: Adequate for Discharge Problem: Activity: Goal: Mobility will improve 11/14/2019 075 by Farrah Cohen RN Outcome: Progressing 11/14/2019 0756 by Farrah Cohen RN Outcome: Adequate for Discharge Problem: Lack of Knowledge: Goal: Understanding of ways to prevent future skin breakdown will improve 11/14/2019 075 by Farrah Cohen RN Outcome: Progressing 11/14/2019 0756 by Farrah Cohen RN Outcome: Adequate for Discharge Goal: Ability to identify appropriate dietary choices will improve 11/14/2019 0757 by Farrah Cohen RN Outcome: Progressing 11/14/2019 0756 by Farrah Cohen RN Outcome: Adequate for Discharge Problem: Nutritional: Goal: Dietary intake will improve 11/14/2019 0757 by Farrah Cohen RN Outcome: Progressing 11/14/2019 0756 by Farrah Cohen RN Outcome: Adequate for Discharge Goal: Ability to maintain a balanced intake and output will improve 11/14/2019 0757 by Farrah Cohen RN Outcome: Progressing 11/14/2019 0756 by Farrah Cohen RN Outcome: Adequate for Discharge Problem: Skin Integrity: Goal: Risk for impaired skin integrity will decrease 11/14/2019 075 by Farrah Cohen RN Outcome: Progressing 11/14/2019 075 by Farrah Cohen RN Outcome: Adequate for Discharge Goal: Ability to demonstrate warm and dry skin will improve 11/14/2019756 by Farrah Cohen RN Outcome: Progressing 11/14/2019755 by Farrah Cohen RN Outcome: Adequate for Discharge Goal: Circulation will improve to fullest extent possible 11/14/2019756 by Farrah Cohen RN Outcome: Progressing 11/14/2019755 by Farrah Cohen RN Outcome: Adequate for Discharge Goals: Clinical Goals for the Shift: maintain comfort, monitor VS, Lab, prevent worsing skin breakdown Summary: Patent Alert and oriented x 3 . Covid positive. Resting quietly at time with no complaintsof pain or discomfort.. Comfort and safety maintained. VS has been stable. No fall or fever noted throughout the shift. Continue plan of care * Plan of Care - Khalif Ricks RN - 11/13/2019 2:48 PM CDT Problem: Health Behavior: Goal: Understanding of discharge needs will improve Outcome: Progressing Problem: Lack of Knowledge: Goal: Ability to [...] Progressing Goals: Clinical Goals for the Shift: Patient will have stable vitals, controlled pain, comfort and rest Summary: Patient is having stable vitals, no complaints of pain, resting comfortably at this time. * Plan of Care - Rossana Santiago LPN - 11/12/2019 4:24 PM CDT Goals: Clinical Goals for the Shift: Monitor v/s, labs, safety, skin and antibiotics Summary: Patient vitals and labs stable. Patient denies any pain or discomfort at this time. Patient remains in safe environment. Patient wounds changed by wound nurse. Patient started on iv rochepinand oral flagyl. Patient breathing stable on room air. Patient will remain here for observation. Problem: Health Behavior: Goal: Understanding of discharge needs will improve Outcome: Progressing Problem: Lack of Knowledge: Goal: Ability to [...] improve to fullest extent possible Outcome: Progressing * Plan of Care - Erwin Francis MSW - 11/12/2019 3:53 PM CDT OCCUPATIONAL THERAPY ASSISTANT received a call from Katie([phone]) with [facility] today. OCCUPATIONAL THERAPY ASSISTANT was informed that pt had weekly tele health visit with wound care. Pt was unable to get face to face appt due to COVID-19. Katie said, pt wound got bad so quickly. Last tele health appt prompted ED admission. OCCUPATIONAL THERAPY ASSISTANT will continue to follow-up. * Plan of Care - Erwin Francis MSW - 11/12/2019 11:25 AM CDT *late entry* OCCUPATIONAL THERAPY ASSISTANT received call from Katie with [facility] today. Pt is able to come back to facility. * Plan of Care - Jennifer Prescott RN - 11/12/2019 3:17 AM CDT Problem: Health Behavior: Goal: Understanding of discharge needs will improve Outcome: Progressing Problem: Lack of Knowledge: Goal: Ability to [...] Progressing Goals: Clinical Goals for the Shift: Monitor v/s, labs, safety, iv antibiotics, MRI Summary:Patient has been resting with no complaints of pain. Wound dressings are clean/dry/intact. Patient's blood sugar be in the 200's in which she stated its always high'. She also likes to request orange juices and snacks. Dressing changes to wound on sacrum and underneath gluteal fold done. Bathed with chlorhexidine and kaplan care done. Vitals are stable. Sleeping at this time. No other complaints, will continue to monitor. * [facility] Note - Erwin Francis MSW - 11/11/2019 5:01 PM CDT Images from the original note were not included. Patient Information: Patient Header Patient Information Patient Name: IRIS GIL Date of 1955 (64 years) Sex: Female Phone Numbers: Home: , Meds and Admin Active Only All Meds/Most Recent Administrations piperacillin-tazobactam (ZOSYN) 3.375 g in sodium chloride 0.9% 100 mL IVPB [[id number]] Ordering Provider: Sina Schilling MD Status: Completed (Past End Date/Time) Ordered On: 11/06/191853 Starts/Ends: 11/06/191853 - 11/06/192004 Dose (Remaining/Total): 3.375 g (0/1) Route: intravenous Frequency: Once Rate/Duration: 200 mL/hr / 30 Minutes Admin Instructions: Mini-Bag Plus bag Timestamps Action Dose / Rate / Duration Route Other Information 11/06/191934 New Bag 3.375 g 200 mL/hr 30 Minutes intravenous Performed by: Holly Caba RN Scanned Package: 4139-2314-07, 5082-5791-65 sodium chloride 0.9% flush 0.5-20 mL [[id number]] Ordering Provider: Sina Schilling MD Status: Verified Ordered On: 11/07/1949 Start: 11/07/19129 Dose (Remaining/Total): 0.5-20 mL (--/--) Route: intra-catheter Frequency: Every 8 hours scheduled Rate/Duration: -- / -- Admin Instructions: Flush volume based on line type and size. Timestamps Action Dose Route Other Information 11/11/19 1314 Given 10 mL intra-catheter Performed by: Rossana Santiago LPN sodium chloride 0.9% flush 0.5-20 mL [[id number]] Ordering Provider: Sina Schilling MD Status: Verified Ordered On: 11/07/1949 Start: 11/07/1949 Dose (Remaining/Total): 0.5-20 mL (--/--) Route: intra-catheter Frequency: As needed Rate/Duration: -- / -- Admin Instructions: Flush volume based on line type and size. Flush before and after each use. (No admins recorded for this medication) ondansetron ODT (ZOFRAN-ODT) disintegrating tablet 4 mg [[id number]] Ordering Provider: Sina Schilling MD Status: Verified Ordered On: 11/07/1949 Start: 11/07/1949 Dose (Remaining/Total): 4 mg (--/--) Route: oral Frequency: Every 6 hours PRN Rate/Duration: -- / -- (No admins recorded for this medication) ondansetron (ZOFRAN) injection 4 mg [[id number]] Ordering Provider: Sina Schilling MD Status: Verified Ordered On: 11/07/1949 Start: 11/07/1949 Dose (Remaining/Total): 4 mg (--/--) Route: intravenous Frequency: Every 6 hours PRN Rate/Duration: -- / 2 Minutes (No admins recorded for this medication) docusate sodium (COLACE) capsule 100 mg [[id number]] Ordering Provider: Sina Schilling MD Status: Verified Ordered On: 11/07/1949 Start: 11/07/1949 Dose (Remaining/Total): 100 mg (--/--) Route: oral Frequency: 2 times daily PRN Rate/Duration: -- / -- (No admins recorded for this medication) sodium chloride 0.9% bolus 1,000 mL [[id number]] Ordering Provider: Sina Schilling MD Status: Completed (Past End Date/Time) Ordered On: 11/06/192107 Starts/Ends: 11/06/192108 - 11/06/192227 Dose (Remaining/Total): 1,000 mL (0/1) Route: intravenous Frequency: Once Rate/Duration: 1,000 mL/hr / 1 Hours Line Med Link Info Comment Peripheral IV 11/06/19 18 G Right Arm 11/06/192127 by Holly Caba RN -- Timestamps Action Dose / Rate / Duration Route Other Information 11/06/192127 New Bag 1,000 mL 1,000 mL/hr 1 Hours intravenous Performed by: Holly Caba RN Scanned Package: 0741-0555-47 amLODIPine (NORVASC) tablet 10 mg [[id number]] Ordering Provider: Zack Johnson NP Status: Dispensed Ordered On: 11/07/1926 Start: 11/07/19 0900 Dose (Remaining/Total): 10 mg (--/--) Route: oral Frequency: Daily Rate/Duration: -- / -- Timestamps Action Dose Route Other Information 11/11/19 0841 Given 10 mg oral Performed by: Rossana Santiago LPN Scanned Package: 9422-4084-49 atorvastatin (LIPITOR) tablet 40 mg [[id number]] Ordering Provider: Zack Johnson NP Status: Dispensed Ordered On: 11/07/1926 Start: 11/07/19 2100 Dose (Remaining/Total): 40 mg (--/--) Route: oral Frequency: Nightly Rate/Duration: -- / -- Timestamps Action Dose Route Other Information 11/10/192141 Given 40 mg oral Performed by: Farrah Cohen RN Scanned Package: 8850-7857-64 insulin glargine (LANTUS) injection 15 Units [[id number]] Ordering Provider: Zack Johnson NP Status: Verified Ordered On: 11/07/1926 Start: 11/07/19 0900 Dose (Remaining/Total): 15 Units (--/--) Route: subcutaneous Frequency: Every morning Rate/Duration: -- / -- Admin Instructions: Do not mix with other insulins Timestamps Action Dose Route / Site Other Information 11/11/19 0841 Given 15 Units subcutaneous Right Upper Arm Performed by: Rossana Santiago LPN Scanned Package: 9536-0696-73 aspirin tablet 325 mg [[id number]] Ordering Provider: Zack Johnson NP Status: Dispensed Ordered On: 11/07/19 0050 Start: 11/07/19 0900 Dose (Remaining/Total): 325 mg (--/--) Route: oral Frequency: Daily Rate/Duration: -- / -- Timestamps Action Dose Route Other Information 11/11/19 0841 Given 325 mg oral Performed by: Rossana Santiago LPN Scanned Package: 10657-492-54 chlorthalidone tablet 25 mg [[id number]] Ordering Provider: Zack Johnson NP Status: Dispensed Ordered On: 11/07/1949 Start: Dose (Remaining/Total): 25 mg (--/--) Route: oral Frequency: Daily Rate/Duration: -- / -- Timestamps Action Dose Route Other Information 11/11/1941 Given 25 mg oral Performed by: Rossana Santiago LPN Scanned Package: 67290-789-[address] (PROTONIX) extended release tablet 40 mg [[id number]] Ordering Provider: Zack Johnson NP Status: Dispensed Ordered On: 11/07/1949 Start: 11/07/19899 Dose (Remaining/Total): 40 mg (--/--) Route: oral Frequency: Daily Rate/Duration: -- / -- Admin Instructions: Do not crush, chew, cut, dissolve, open or otherwise manipulate tablet/capsule. Timestamps Action Dose Route Other Information 11/11/19 0841 Given 40 mg oral Performed by: Rossana Santiago LPN Scanned Package: 83304-046-47 polyethylene glycol (MIRALAX) packet 17 g [[id number]] Ordering Provider: Zack Johnson NP Status: Dispensed Ordered On: 11/07/1949 Start: Dose (Remaining/Total): 17 g (--/--) Route: oral Frequency: Daily Rate/Duration: -- / -- Timestamps Action Dose Route Other Information 11/11/1941 Given 17 g oral Performed by: Rossana Santiago LPN Scanned Package: 7288-1444-15 levothyroxine (SYNTHROID) tablet 50 mcg [[id number]] Ordering Provider: Zack Johnson NP Status: Dispensed Ordered On: 11/07/1949 Start: 11/07/19 0600 Dose (Remaining/Total): 50 mcg (--/--) Route: oral Frequency: Daily (early AM) Rate/Duration: -- / -- Admin Instructions: Administer on an empty stomach, preferably 30 minutes before breakfast. Take 4 hours apart from antacids, iron and calcium products. Timestamps Action Dose Route Other Information 11/11/19 0656 Given 50 mcg oral Performed by: Farrah Cohen RN Scanned Package: 55296-841-75 gabapentin (NEURONTIN) capsule 300 mg [[id number]] Ordering Provider: Zack Johnson NP Status: Dispensed Ordered On: 11/07/1949 Start: 11/07/19899 Dose (Remaining/Total): 300 mg (--/--) Route: oral Frequency: 3 times daily Rate/Duration: -- / -- Timestamps Action Dose Route Other Information 11/11/19 1513 Given 300 mg oral Performed by: Rossana Santiago LPN Scanned Package: 7642-5036-64 dextrose oral liquid liquid 15 g [[id number]] Ordering Provider: Zack Johnson NP Status: Verified Ordered On: 11/07/1949 Start: 11/07/1949 Dose (Remaining/Total): 15 g (--/--) Route: oral Frequency: Every 15 min PRN Rate/Duration: -- / -- Admin Instructions: If patient is alert and able to eat/drink, give 15 gm glucose or one juice (4 fluid ounces) NOT ORANGE JUICE. After treatment for hypoglycemia, recheck BG followed by treatment every 15 minutes until the BG is greater than 100 mg/dL. Then check BG 1 hour post-treatment. If BG isless than 100 mg/dL, repeat Q15 minute BG checks and treatment. Call MD for each episode of hypoglycemia. (No admins recorded for this medication) dextrose (D10W) 10% bolus 250 mL [[id number]] Ordering Provider: Zack Johnson NP Status: Verified Ordered On: 11/07/1949 Start: 11/07/1949 Dose (Remaining/Total): 250 mL (--/--) Route: intravenous Frequency: Every 15 min PRN Rate/Duration: 1,000 mL/hr / 15 Minutes Admin Instructions: After treatment for hypoglycemia, recheck BG followed by treatment every 15 minutes until the BG is greater than 100 mg/dL. Then check BG 1 hour post treatment. If BG is less orkg598 mg/dL, repeat Q15 minute BG checks and treatment. Call MD for each episode of hypoglycemia. (No admins recorded for this medication) glucagon injection 1 mg [[id number]] Ordering Provider: Zack Johnson NP Status: Verified Ordered On: 11/07/1949 Start: 11/07/1949 Dose (Remaining/Total): 1 mg (--/--) Route: intramuscular Frequency: Every 30 min PRN Rate/Duration: -- / 1 Minutes Admin Instructions: After Glucagon is administered, position patient on side if possible to avoid aspiration. Obtain IV access. Follow glucagon treatment with glucose treatment or IV dextrose. After treatment for hypoglycemia, recheck BG followed by treatment every 15 minutes until the BG isgreater than 100 mg/dL. Then check BG 1 hour post treatment. If BG is less than 100 mg/dL, repeat Q15 minute BG checks and treatment. Call MD for each episode of hypoglycemia. (No admins recorded for this medication) vancomycin 1,000 mg/200 mL in dextrose 5% (premix) 1,000 mg [[id number]] Ordering Provider: Zack Johnson NP Status: Dispensed Ordered On: 11/07/193 Start: 11/08/19 0600 Dose (Remaining/Total): 1,000 mg (--/--) Route: intravenous Frequency: Every 24 hours Rate/Duration: -- / 60 Minutes Line Med Link Info Comment Peripheral IV 11/06/19 18 G Right Arm 11/08/19 0641 by Rebecca Ortega RN -- Timestamps Action Dose / Duration Route Other Information 11/11/19 0656 New Bag 1,000 mg 60 Minutes intravenous Performed by: Farrah Cohen RN Scanned Package: [id number] vancomycin (VANCOCIN) 1,750 mg in sodium chloride 0.9% 500 mL IVPB [[id number]] Ordering Provider: Zack Johnson NP Status: Completed (Past End Date/Time) Ordered On: 11/07/1949 Starts/Ends: 11/07/19 0130 - 11/07/19 0526 Dose (Remaining/Total): 1,750 mg (0/1) Route: intravenous Frequency: Once Rate/Duration: 258.8 mL/hr / 120 Minutes Timestamps Action Dose / Rate / Duration Route Other Information 11/07/19 0326 New Bag 1,750 mg 258.8 mL/hr 120 Minutes intravenous Performed by: Ludmila Casas RN hydrALAZINE (APRESOLINE) tablet 25 mg [[id number]] Ordering Provider: Zack Johnson NP Status: Completed (Past End Date/Time) Ordered On: 11/07/19 0053 Starts/Ends: 11/07/19 0130 - 11/07/19 0200 Dose (Remaining/Total): 25 mg (0/1) Route: oral Frequency: Once Rate/Duration: -- / -- Timestamps Action Dose Route Other Information 11/07/19 020 Given 25 mg oral Performed by: Ludmila Casas RN sodium chloride 0.9% IVPB 0-250 mL [[id number]] Ordering Provider: Reji Whittaker MD Status: Verified (Past End Date/Time) Ordered On: 11/07/191749 Starts/Ends: 11/07/191829 - 11/08/191829 Dose (Remaining/Total): 0-250 mL (1/1) Route: intravenous Frequency: Once Rate/Duration: -- / -- Admin Instructions: Prime blood tubing and administer amount needed to clear line (usually 50-100 mL) after transfusion complete. (No admins recorded for this medication) piperacillin-tazobactam (ZOSYN) 3.375 g in sodium chloride 0.9% 100 mL IVPB [[id number]] Ordering Provider: Markel Bourgeois MD Status: Dispensed Ordered On: 11/07/191926 Start: 11/08/19 0000 Dose (Remaining/Total): 3.375 g (--/--) Route: intravenous Frequency: Every 6 hours scheduled Rate/Duration: 200 mL/hr / 30 Minutes Admin Instructions: Mini-Bag Plus bag Line Med Link Info Comment Peripheral IV 11/06/19 18 G Right Arm 11/08/19 0028 by Rebecca Ortega RN -- Timestamps Action Dose / Rate / Duration Route Other Information 11/11/19 1513 New Bag 3.375 g 200 mL/hr 30 Minutes intravenous Performed by: Rossana Santiago LPN Scanned Package: [id number], [id number] sodium chloride 0.9% 0.9% infusion - ADS Override Pull [[id number]] Status: Completed (Past End Date/Time) Ordered On: 11/08/19 011 Starts/Ends: 11/08/19 0114 - 11/08/19 0245 Dose (Remaining/Total): -- (0/1) Route: -- Frequency: -- Rate/Duration: -- / -- Admin Instructions: Created by cabinet override Note to pharmacy: Created by cabinet override Timestamps Action Dose Route / Site / Linked Line Other Information 11/08/19244 New Bag 500 mL -- Performed by: Rebecca Ortega RN Comments: pulled for use with blood transfusion Scanned Package: [id number] enoxaparin (LOVENOX) syringe 40 mg [[id number]] Ordering Provider: Reji Whittaker MD Status: Dispensed Ordered On: 11/08/19 1443 Start: 11/08/19 2100 Dose (Remaining/Total): 40 mg (--/--) Route: subcutaneous Frequency: Daily (for enoxaparin) Rate/Duration: -- / -- Admin Instructions: Per [facility] Dosing and Monitoring Policy Lovenox for DVT prevention was increased to 40mg for CrCl > 30 mL/min Timestamps Action Dose Route / Site Other Information 11/10/192141 Given 40 mg subcutaneous Left Lower Abdomen Performed by: Farrah Cohen RN Scanned Package: [id number] ioversoL (OPTIRAY 350) syringe syringe 100 mL [[id number]] Ordering Provider: Markel Bourgeois MD Status: Completed (Past End Date/Time) Ordered On: 11/08/191723 Starts/Ends: 11/08/191723 - 11/08/191756 Dose (Remaining/Total): 100 mL (0/1) Route: intravenous Frequency: Once in imaging Rate/Duration: -- / -- Line Med Link Info Comment Peripheral IV 11/06/19 18 G Right Arm 11/08/191756 by Ramez Al Suarez, RT -- Timestamps Action Dose Route Other Information 11/08/191756 Given 97 mL intravenous Performed by: Ramez Red, RT Scanned Package: [id number] insulin lispro (HumaLOG, ADMELOG) injection 7 Units [[id number]] Ordering Provider: Reji Whittaker MD Status: Completed (Past End Date/Time) Ordered On: 11/09/191219 Starts/Ends: 11/09/19 1300 - 11/09/191222 Dose (Remaining/Total): 7 Units (0/1) Route: subcutaneous Frequency: Once Rate/Duration: -- / -- Timestamps Action Dose Route / Site Other Information 11/09/191222 Given 7 Units subcutaneous Right Lower Abdomen Performed by: Lety Olguin RN Scanned Package: [id number] acetaminophen (TYLENOL) tablet 650 mg [[id number]] Ordering Provider: Reji Whittaker MD Status: Dispensed Ordered On: 11/09/191840 Start: 11/09/191840 Dose (Remaining/Total): 650 mg (--/--) Route: oral Frequency: Every 6 hours PRN Rate/Duration: -- / -- (No admins recorded for this medication) dextrose oral liquid liquid 15 g [[id number]] Ordering Provider: Reji Whittaker MD Status: Verified Ordered On: 11/10/19 0941 Start: 11/10/19 0936 Dose (Remaining/Total): 15 g (--/--) Route: oral Frequency: Every 15 min PRN Rate/Duration: -- / -- Admin Instructions: If patient is alert and able to eat/drink, give 15 gm glucose or one juice (4 fluid ounces) NOT ORANGE JUICE. After treatment for hypoglycemia, recheck BG followed by treatment every 15 minutes until the BG is greater than 100 mg/dL. Then check BG 1 hour post-treatment. If BG isless than 100 mg/dL, repeat Q15 minute BG checks and treatment. Call MD for each episode of hypoglycemia. (No admins recorded for this medication) dextrose (D10W) 10% bolus 250 mL [[id number]] Ordering Provider: Reji Whittaker MD Status: Verified Ordered On: 11/10/19940 Start: 11/10/19935 Dose (Remaining/Total): 250 mL (--/--) Route: intravenous Frequency: Every 15 min PRN Rate/Duration: 1,000 mL/hr / 15 Minutes Admin Instructions: After treatment for hypoglycemia, recheck BG followed by treatment every 15 minutes until the BG is greater than 100 mg/dL. Then check BG 1 hour post treatment. If BG is less xohe280 mg/dL, repeat Q15 minute BG checks and treatment. Call MD for each episode of hypoglycemia. (No admins recorded for this medication) glucagon injection 1 mg [[id number]] Ordering Provider: Reji Whittaker MD Status: Verified Ordered On: 11/10/19940 Start: 11/10/19935 Dose (Remaining/Total): 1 mg (--/--) Route: intramuscular Frequency: Every 30 min PRN Rate/Duration: -- / 1 Minutes Admin Instructions: After Glucagon is administered, position patient on side if possible to avoid aspiration. Obtain IV access. Follow glucagon treatment with glucose treatment or IV dextrose. After treatment for hypoglycemia, recheck BG followed by treatment every 15 minutes until the BG isgreater than 100 mg/dL. Then check BG 1 hour post treatment. If BG is less than 100 mg/dL, repeat Q15 minute BG checks and treatment. Call MD for each episode of hypoglycemia. (No admins recorded for this medication) insulin lispro (HumaLOG, ADMELOG) injection 1-5 Units [[id number]] Ordering Provider: Reji Whittaker MD Status: Verified Ordered On: 11/10/19940 Start: 11/10/19 1200 Dose (Remaining/Total): 1-5 Units (--/--) Route: subcutaneous Frequency: 3 times daily with meals Rate/Duration: -- / -- Admin Instructions: Blood Sugar Mid Dose meal time - PO patients 139 or less No insulin 140 - 175 1 unit 176 - 200 2 unit 201 - 250 3 units 251 - 299 5 units Greater than 299 Call MD for hyperglycemia management instructions Do NOT hold for NPO status. Timestamps Action Dose Route / Site Other Information 11/11/19 1235 Given 1 Units subcutaneous Left Upper Abdomen Performed by: Rossana Santiago LPN Scanned Package: [id number] insulin lispro (HumaLOG, ADMELOG) injection 1-3 Units [[id number]] Ordering Provider: Reji Whittaker MD Status: Verified Ordered On: 11/10/19 0941 Start: 11/10/19 2100 Dose (Remaining/Total): 1-3 Units (--/--) Route: subcutaneous Frequency: Nightly Rate/Duration: -- / -- Admin Instructions: Blood Sugar Mid Dose PM - PO patients 175 or less No insulin 176 - 200 1 unit 201 - 250 2 units 251 - 299 3 units Greater than 299 Call MD for hyperglycemia management instructions Do NOT hold for NPO status. Timestamps Action Dose Route / Site Other Information 11/10/19 2143 Given 1 Units subcutaneous Right Lower Abdomen Performed by: Farrah Cohen RN Scanned Package: [id number] cloNIDine (CATAPRES) tablet 0.1 mg [[id number]] Ordering Provider: Reji Whittaker MD Status: Dispensed Ordered On: 11/10/19 1650 Start: 11/10/19 1648 Dose (Remaining/Total): 0.1 mg (--/--) Route: oral Frequency: Every 6 hours PRN Rate/Duration: -- / -- Timestamps Action Dose Route Other Information 11/10/19 1656 Given 0.1 mg oral Performed by: Lety Olguin RN Scanned Package: [id number] , Wound Info Only Patient Lines/Drains/Airways Status Active Wound / Pressure ulcer / Vivar / Negative Pressure Wound Pressure Ulcer/Pressure Injury 11/06/19 Transverse Sacrum Date First Assessed 11/06/19 Site: Sacrum Time First Assessed 0500 Days: 5 Present on Hospital Admission: Yes Location Orientation: Transverse Assessments 11/10/19200911/10/19 08:04:15 11/09/19199911/09/19 1800 Pressure Ulcer Status Unchanged Unchanged -- Evolving Description Unstageable, full thickness tissue loss. The base of the ulcer is not visible due to slough and/or eschar. -- -- -- Staging Stage 3 Stage 3 -- -- Mari-wound Assessment Flaky;Fragile Fragile;Flaky -- Fragile;Flaky Margins MEÑO -- -- -- Drainage Amount None -- -- None Drainage Odor No odor -- -- -- Dressing Status Clean/Dry/Intact Clean/Dry/Intact -- Changed;Clean/Dry/Intact Dressing/Intervention -- -- Foam lifted/reapplied Foam (Comment-type);Hydrophilic Pressure Ulcer/Pressure Injury 11/07/19 Left Ischium Date First Assessed 11/07/19 Site: Ischium Time First Assessed 1518 Days: 4 Present on Hospital Admission: Yes Location Orientation: Left Assessments 11/10/19200911/10/19 08:04:15 11/09/19199911/09/19 1800 Pressure Ulcer Status Unchanged Unchanged -- Evolving Description Unstageable, full thickness tissue loss. The base of the ulcer is not visible due to slough and/or eschar. -- -- -- Staging Unstageable -- -- -- Mari-wound Assessment Flaky;Fragile Fragile;Flaky -- Fragile;Flaky Margins MEÑO -- -- -- Drainage Amount None -- -- None Drainage Description MEÑO -- -- -- Drainage Odor No odor -- -- -- Dressing Status Clean/Dry/Intact Clean/Dry/Intact -- Changed;Clean/Dry/Intact Dressing/Intervention -- -- Foam lifted/reapplied Foam (Comment-type);Hydrophilic Pressure Ulcer/Pressure Injury 11/07/19 Left;Right Heel Date First Assessed 11/07/19 Site: Heel Time First Assessed 1519 Days: 4 Present on Hospital Admission: Yes Location Orientation: Left;Right Assessments 11/10/19200911/10/19 08:04:15 11/09/19199911/09/19 1800 Pressure Ulcer Status Unchanged Unchanged -- Evolving Description Unstageable, full thickness tissue loss. The base of the ulcer is not visible due to slough and/or eschar. Unstageable, full thickness tissue loss. The base of the ulcer is not visible due to slough and/or eschar. -- -- Staging Unstageable Unstageable -- -- Mari-wound Assessment MEÑO Black;Flaky;Fragile;Bleeding -- Black;Flaky;Fragile;Bleeding Margins MEÑO -- -- -- Drainage Amount MEÑO -- -- Moderate Drainage Description MEÑO -- -- Brown;Foul purulent;Creamy Drainage Odor -- -- -- Foul Dressing Status Clean/Dry/Intact Clean/Dry/Intact Clean/Dry/Intact Changed;Clean/Dry/Intact Dressing/Intervention -- -- -- ABD pad;Gauze 4x4;Gauze rolled , Vitals Info Only Vital Signs 11/09 699 - 11/10 0659 11/10 07 - 11/10 1701 Most Recent Temp (??C) 36.5 - 37.3 36.4 36.4 (97.6) Pulse 54 - 97 53 - 59 59 Resp 14 - 18 15 - 16 15 SpO2 (%) 97 - 100 94 - 97 97 BP 113/48 - 184/96 109/64 - 122/50 109/64 MAP (mmHg) 62 - 73 65 - 78 73 , Oxygen Info Only Default Flowsheet Data (most recent) Endurance Tests No documentation. Default Flowsheet Data (last 48 hours) Oxygen Row Name 11/11/19 15:33:31 11/11/19 11:26:26 11/11/19 0841 11/11/19 08:04:30 11/11/19 0551 Oxygen Therapy/Pulse Ox O2 Therapy None (Room air) None (Room air) None (Room air) None (Room air) None (Room air) SpO2 97 % 94 % -- 97 % -- Patient Activity -- -- -- -- At rest Row Name 11/11/19 05:02:03 11/11/19 0350 11/11/19 0134 11/11/19 0000 11/10/19 23:42:29 Oxygen Therapy/Pulse Ox O2 Therapy None (Room air) None (Room air) None (Room air) None (Room air) None (Room air) SpO2 100 % -- -- -- 99 % Patient Activity -- At rest At rest At rest -- Row Name 11/10/19230411/10/19219911/10/19200911/10/19 1946 11/10/19 16:08:37 Oxygen Therapy/Pulse Ox O2 Therapy None (Room air) None (Room air) None (Room air) None (Room air) None (Room air) SpO2 -- -- -- 98 % 99 % Patient Activity -- At rest -- -- -- Row Name 11/10/19 11:37:42 11/10/19 08:04:15 11/10/19 04:13:57 11/10/19 00:03:05 11/09/19 20:30:29 Oxygen Therapy/Pulse Ox O2 Therapy None (Room air) None (Room air) None (Room air) None (Room air) None (Room air) SpO2 97 % 97 % 97 % 99 % 100 % Row Name 11/09/191999 Oxygen Therapy/Pulse Ox O2 Therapy None (Room air) Patient Activity At rest * Plan of Care - Rossana Santiago LPN - 11/11/2019 3:26 PM CDT Goals: Clinical Goals for the Shift: Monitor v/s, labs, safety, iv antibiotics, MRI Summary: Patient vitals and labs stable. Patient denies any pain or discomfort at this time. Patient remains in safe environment. Patient breathing stable on room air at this time. Patient remains oniv antibiotics. Patient's MRI on hold at this time. Patient wound cleansed and changed as ordered. Patient has kaplan that intact and draining yellow urine to gravity. Patient will remain here for observation. Problem: Health Behavior: Goal: Understanding of discharge needs will improve Outcome: Progressing Problem: Lack of Knowledge: Goal: Ability to [...] improve to fullest extent possible Outcome: Progressing * Plan of Care - Ranjana Horton RN - 11/11/2019 7:47 AM CDT Pt transferred to [facility]. Report given to CESAR Lenz. SW following for discharge planning. EVE Cherry-RN [facility] [phone] * Plan of Care - Joselin Heck LPN - 11/10/2019 6:53 PM CDT Problem: Health Behavior: Goal: Understanding of discharge needs will improve Outcome: Progressing Problem: Lack of Knowledge: Goal: Ability to [...] Goals: Clinical Goals for the Shift: VSS, afebrile, free from falls/injury, comfort measures, reorient to environment frequently Summary: Received pt from 5th floor after pt testing positive for covid. Pt given complete bed change, wound dressings changed and fed dinner. Pt alert and oriented. * Plan of Care - Vernell Tucker RN - 11/10/2019 3:17 AM CDT Goals: Clinical Goals for the Shift: VSS, afebrile, free from falls/injury, comfort measures, reorient to environment frequently Summary: VSS, afebrile. Alert x2 and slow to answer at times. Free from falls/injury. Comfort measures. Plan for debridement of heels by Dr. Smith on Monday. COVID pending. Continue with POC. * Plan of Care - Tanya Patel RN - 11/09/2019 5:29 AM CDT Problem: Safety: Goal: Will remain free from falls Outcome: Progressing Goal: Will remain free from injury from falls Outcome: Progressing Goal: Will remain free from falls and injury in home environment Outcome: Progressing Problem: Nutritional: Goal: Dietary intake will improve Outcome: Progressing Goal: Ability to maintain a balanced intake and output will improve Outcome: Progressing Problem: Lack of Knowledge: Goal: Understanding of ways to prevent future skin breakdown will improve Outcome: Progressing Goal: Ability to identify appropriate dietary choices will improve Outcome: Progressing Goals: Clinical Goals for the Shift: safety, comfort and stable VS and Bg. Summary: Patient denied pain, she had her scheduled meds, she is co operating with her care, she remained free from fall. * Plan of Care - Nguyen Michel RN - 11/08/2019 11:42 AM CDT Problem: Health Behavior: Goal: Understanding of discharge needs will improve Outcome: Progressing Problem: Lack of Knowledge: Goal: Ability to state ways to decrease the risk of falls will improve Outcome: Progressing Problem: Safety: Goal: Will remain free from falls Outcome: Progressing Goal: Will remain free from injury from falls Outcome: Not Progressing Goal: Will remain free from falls [...] to fullest extent possible Outcome: Not Progressing Goals: Clinical Goals for the Shift: improve stregnth, stay safe and comfrotable, control pain, stable labs, improve wound healing Summary: Cont. ABT and monitoring for pain. US of bilateral heel wounds today. Pt does not move in bed unless eating or prompted. Cont. turn schedule and keeping skin clean and dry. * Plan of Care - Rebecca Ortega RN - 11/08/2019 4:18 AM CDT Problem: Safety: Goal: Will remain free from falls Outcome: Progressing Goal: Will remain free from injury from falls Outcome: Progressing Problem: Activity: Goal: Mobility will improve Outcome: Progressing Problem: Nutritional: Goal: Dietary intake will improve Outcome: Progressing Goal: Ability to maintain a balanced intake and output will improve Outcome: Progressing Problem: Skin Integrity: Goal: Ability to demonstrate warm and dry skin will improve Outcome: Progressing Goal: Circulation will improve to fullest extent possible Outcome: Progressing Problem: Lack of Knowledge: Goal: Ability to state ways to decrease the risk of falls will improve Outcome: Not Progressing Problem: Lack of Knowledge: Goal: Understanding of ways to prevent future skin breakdown will improve Outcome: Not Progressing Goal: Ability to identify appropriate dietary choices will improve Outcome: Not Progressing Problem: Skin Integrity: Goal: Risk for impaired skin integrity will decrease Outcome: Not Progressing Problem: Health Behavior: Goal: Understanding of discharge needs will improve Outcome: Defer Goals: Clinical Goals for the Shift: Patient will increase strength, move more frequently in bed, vitals will be stable and will receive adequate rest. Patient did not move in the bed without prompting or turn without staff assistance. Vitals were stable. Patient received one unit of blood. Slept at least 6 hours. * Plan of Care - Nguyen Michel RN - 11/07/2019 1:14 PM CDT Problem: Health Behavior: Goal: Understanding of discharge needs will improve Outcome: Progressing Problem: Lack of Knowledge: Goal: Ability to state ways to decrease the risk of falls will improve Outcome: Progressing Problem: Safety: Goal: Will remain free from falls Outcome: Progressing Goal: Will remain free from injury from falls Outcome: Progressing Goal: Will remain free from falls and injury in home environment Outcome: Progressing Problem: Activity: Goal: Mobility will improve Outcome: Progressing Problem: Skin Integrity: Goal: Risk for impaired skin integrity will decrease Outcome: Progressing Goal: Ability to demonstrate warm and dry skin will improve Outcome: Progressing Goal: Circulation will improve to fullest extent possible Outcome: Progressing Problem: Nutritional: Goal: Dietary intake will improve Outcome: Progressing Goal: Ability to maintain a balanced intake and output will improve Outcome: Progressing Goals: Clinical Goals for the Shift: improve stregnth, improve and monitor labs, skin clean and dry, improve wound healing, encourage fluids and meals, ABT, stay safe Summary: Pt resting in bed. Vitals WDL. [place] foam applied to sacral wound and bilateral heels. Heelprotectors on bilateral feet. Wound and I/D consulted for patient care. Encouraging fluids and meals. Attending notified of pt low Hgb- 6.7 and positive blood culutre, awaiting to be seen. On schedule turn schedule. Pt is calm and cooperative. documented in this encounter Plan of Treatment Not on file documented as of this encounter Procedures Procedure Name Priority Date/Time Associated Diagnosis Comments POCT GLUCOSE DEVICE Routine 11/20/2019 8 :13 PM CDT POCT GLUCOSE DEVICE Routine 11/20/2019 5 :14 PM CDT POCT GLUCOSE DEVICE Routine 11/20/2019 1 2:24 PM CDT POCT GLUCOSE DEVICE Routine 11/20/2019 1 2:22 PM CDT POCT GLUCOSE DEVICE Routine 11/20/2019 6 :55 AM CDT EGFR Routine 11/20/2019 3:58 AM CDT COMPREHENSIVE METABOLIC PANEL Routine 11/20/2019 3:58 AM CDT POCT GLUCOSE DEVICE Routine 11/20/2019 2 :45 AM CDT POCT GLUCOSE DEVICE Routine 11/19/2019 1 1:52 PM CDT POCT GLUCOSE DEVICE Routine 11/19/2019 4 :40 PM CDT POCT GLUCOSE DEVICE Routine 11/19/2019 1 2:13 PM CDT POCT GLUCOSE DEVICE Routine 11/19/2019 6 :14 AM CDT EGFR Routine 11/19/2019 5:20 AM CDT DIFFERENTIAL AUTO Routine 11/19/2019 5:2 0 AM CDT CBC WITH AUTO DIFFERENTIAL Routine 11/19/2019 5:20 AM CDT COMPREHENSIVE METABOLIC PANEL Routine 11/19/2019 5:20 AM CDT POCT GLUCOSE DEVICE Routine 11/19/2019 2 :08 AM CDT POCT GLUCOSE DEVICE Routine 11/18/2019 4 :03 PM CDT POCT GLUCOSE DEVICE Routine 11/18/2019 1 1:24 AM CDT POCT GLUCOSE DEVICE Routine 11/18/2019 6 :18 AM CDT EGFR Routine 11/18/2019 5:10 AM CDT COMPREHENSIVE METABOLIC PANEL Routine 11/18/2019 5:10 AM CDT POCT GLUCOSE DEVICE Routine 11/18/2019 2 :16 AM CDT POCT GLUCOSE DEVICE Routine 11/17/2019 7 :28 PM CDT POCT GLUCOSE DEVICE Routine 11/17/2019 4 :54 PM CDT POCT GLUCOSE DEVICE Routine 11/17/2019 1 1:20 AM CDT POCT GLUCOSE DEVICE Routine 11/17/2019 6 :31 AM CDT EGFR Routine 11/17/2019 4:37 AM CDT COMPREHENSIVE METABOLIC PANEL Routine 11/17/2019 4:37 AM CDT POCT GLUCOSE DEVICE Routine 11/17/2019 4 :19 AM CDT POCT GLUCOSE DEVICE Routine 11/17/2019 3 :52 AM CDT POCT GLUCOSE DEVICE Routine 11/17/2019 3 :23 AM CDT POCT GLUCOSE DEVICE Routine 11/17/2019 2 :58 AM CDT POCT GLUCOSE DEVICE Routine 11/17/2019 2 :57 AM CDT POCT GLUCOSE DEVICE Routine 11/16/2019 8 :17 PM CDT POCT GLUCOSE DEVICE Routine 11/16/2019 4 :51 PM CDT POCT GLUCOSE DEVICE Routine 11/16/2019 1 1:03 AM CDT POCT GLUCOSE DEVICE Routine 11/16/2019 6 :31 AM CDT EGFR Routine 11/16/2019 4:12 AM CDT COMPREHENSIVE METABOLIC PANEL Routine 11/16/2019 4:12 AM CDT POCT GLUCOSE DEVICE Routine 11/16/2019 3 :18 AM CDT POCT GLUCOSE DEVICE Routine 11/15/2019 8 :22 PM CDT POCT GLUCOSE DEVICE Routine 11/15/2019 3 :52 PM CDT POCT GLUCOSE DEVICE Routine 11/15/2019 1 1:58 AM CDT POCT GLUCOSE DEVICE Routine 11/15/2019 6 :31 AM CDT EGFR Routine 11/15/2019 4:16 AM CDT COMPREHENSIVE METABOLIC PANEL Routine 11/15/2019 4:16 AM CDT POCT GLUCOSE DEVICE Routine 11/15/2019 2 :24 AM CDT POCT GLUCOSE DEVICE Routine 11/14/2019 8 :49 PM CDT POCT GLUCOSE DEVICE Routine 11/14/2019 4 :42 PM CDT POCT GLUCOSE DEVICE Routine 11/14/2019 1 2:03 PM CDT POCT GLUCOSE DEVICE Routine 11/14/2019 6 :34 AM CDT EGFR Routine 11/14/2019 4:08 AM CDT COMPREHENSIVE METABOLIC PANEL Routine 11/14/2019 4:08 AM CDT POCT GLUCOSE DEVICE Routine 11/14/2019 2 :13 AM CDT POCT GLUCOSE DEVICE Routine 11/13/2019 8 :59 PM CDT POCT GLUCOSE DEVICE Routine 11/13/2019 5 :11 PM CDT POCT GLUCOSE DEVICE Routine 11/13/2019 1 2:21 PM CDT POCT GLUCOSE DEVICE Routine 11/13/2019 6 :31 AM CDT EGFR Routine 11/13/2019 4:24 AM CDT COMPREHENSIVE METABOLIC PANEL Routine 11/13/2019 4:24 AM CDT POCT GLUCOSE DEVICE Routine 11/13/2019 2 :50 AM CDT POCT GLUCOSE DEVICE Routine 11/12/2019 9 :03 PM CDT POCT GLUCOSE DEVICE Routine 11/12/2019 4 :50 PM CDT POCT GLUCOSE DEVICE Routine 11/12/2019 1 1:23 AM CDT POCT GLUCOSE DEVICE Routine 11/12/2019 6 :30 AM CDT EGFR Routine 11/12/2019 4:26 AM CDT COMPREHENSIVE METABOLIC PANEL Routine 11/12/2019 4:26 AM CDT POCT GLUCOSE DEVICE Routine 11/12/2019 2 :09 AM CDT POCT GLUCOSE DEVICE Routine 11/11/2019 8 :43 PM CDT POCT GLUCOSE DEVICE Routine 11/11/2019 4 :17 PM CDT POCT GLUCOSE DEVICE Routine 11/11/2019 1 1:21 AM CDT POCT GLUCOSE DEVICE Routine 11/11/2019 6 :59 AM CDT EGFR Routine 11/11/2019 4:42 AM CDT COMPREHENSIVE METABOLIC PANEL Routine 11/11/2019 4:42 AM CDT POCT GLUCOSE DEVICE Routine 11/11/2019 2 :19 AM CDT POCT GLUCOSE DEVICE Routine 11/10/2019 9 :39 PM CDT POCT GLUCOSE DEVICE Routine 11/10/2019 4 :53 PM CDT POCT GLUCOSE DEVICE Routine 11/10/2019 1 1:56 AM CDT POCT GLUCOSE DEVICE Routine 11/10/2019 7 :16 AM CDT EGFR Routine 11/10/2019 5:34 AM CDT COMPREHENSIVE METABOLIC PANEL Routine 11/10/2019 5:34 AM CDT DIFFERENTIAL AUTO Routine 11/10/2019 5:2 8 AM CDT CBC WITH AUTO DIFFERENTIAL Routine 11/10/2019 5:28 AM CDT VANCOMYCIN LEVEL TROUGH Timed 11/10/2019 5:28 AM CDT POCT GLUCOSE DEVICE Routine 11/10/2019 2 :19 AM CDT POCT GLUCOSE DEVICE Routine 11/09/2019 8 :36 PM CDT POCT GLUCOSE DEVICE Routine 11/09/2019 6 :17 PM CDT COVID-19 CORONAVIRUS RNA Routine 11/09/2019 6:15 PM CDT AEROBIC AND ANAEROBIC CULTURE AND GRAM STAIN Routine 11/09/2019 6:15 PM CDT AEROBIC AND ANAEROBIC CULTURE AND GRAM STAIN Routine 11/09/2019 6:15 PM CDT POCT GLUCOSE DEVICE Routine 11/09/2019 1 2:15 PM CDT POCT GLUCOSE DEVICE Routine 11/09/2019 8 :10 AM CDT POCT GLUCOSE DEVICE Routine 11/09/2019 2 :23 AM CDT POCT GLUCOSE DEVICE Routine 11/08/2019 1 0:[address] ABDOMEN PELVIS W CONTRAST IP Routine 11/08/2019 6:03 PM CDT POCT GLUCOSE DEVICE Routine 11/08/2019 5 :39 PM CDT POCT GLUCOSE DEVICE Routine 11/08/2019 3 :03 PM CDT US ARTERIAL DOPPLER LOWER EXTREMITY BILATERAL IP Routine 11/08/2019 12:14 PM CDT POCT GLUCOSE DEVICE Routine 11/08/2019 8 :39 AM CDT EGFR Routine 11/08/2019 8:12 AM CDT DIFFERENTIAL AUTO STAT 11/08/2019 8:1 2 AM CDT CBC WITH AUTO DIFFERENTIAL STAT 11/08/2019 8:12 AM CDT BLOOD CULTURE Routine 11/08/2019 8:12 AM CDT BLOOD CULTURE Routine 11/08/2019 8:12 AM CDT COMPREHENSIVE METABOLIC PANEL Routine 11/08/2019 8:12 AM CDT TRANSFUSE RED BLOOD CELLS Timed 11/08/2019 2:39 AM CDT POCT GLUCOSE DEVICE Routine 11/07/2019 1 0:35 PM CDT TYPE AND SCREEN Timed 11/07/2019 6:20 PM CDT POCT GLUCOSE DEVICE Routine 11/07/2019 6 :03 PM CDT PREPARE RBC STAT 11/07/2019 5:51 PM CDT POCT GLUCOSE DEVICE Routine 11/07/2019 1 2:43 PM CDT EGFR Routine 11/07/2019 11:24 AM CDT DIFFERENTIAL AUTO Routine 11/07/2019 11: 24 AM CDT B CHECK SAMPLE STAT 11/07/2019 11:24 AM CDT CBC WITH AUTO DIFFERENTIAL Routine 11/07/2019 11:24 AM CDT HEMOGLOBIN A1C Routine 11/07/2019 11:24 AM CDT COMPREHENSIVE METABOLIC PANEL Routine 11/07/2019 11:24 AM CDT POCT GLUCOSE DEVICE Routine 11/07/2019 8 :22 AM CDT URINALYSIS AND REFLEX TO MICROSCOPIC AND CULTURE Routine 11/07/2019 1:45 AM CDT URINALYSIS, MICROSCOPIC ONLY Routine 11/07/2019 1:45 AM CDT URINE CULTURE Routine 11/07/2019 1:45 AM CDT SEPSIS LACTATE WITH REFLEX Timed 11/06/2019 11:55 PM CDT XR ABDOMEN AP 1 VIEW ED 11/06/2019 11:00 PM CDT SEPSIS LACTATE WITH REFLEX Timed 11/06/2019 9:29 PM CDT XR FOOT RIGHT 3 OR MORE VIEWS ED 11/06/2019 8:22 PM CDT XR FOOT LEFT 3 OR MORE VIEWS ED 11/06/2019 8:21 PM CDT SEPSIS LACTATE WITH REFLEX STAT 11/06/2019 7:06 PM CDT EGFR STAT 11/06/2019 7:06 PM CDT DIFFERENTIAL AUTO STAT 11/06/2019 7:0 6 PM CDT CBC WITH AUTO DIFFERENTIAL STAT 11/06/2019 7:06 PM CDT BLOOD CULTURE STAT 11/06/2019 7:06 PM CDT BLOOD CULTURE STAT 11/06/2019 7:06 PM CDT COMPREHENSIVE METABOLIC PANEL STAT 11/06/2019 7:06 PM CDT documented in this encounter Results * (ABNORMAL) POCT glucose (11/20/2019 8:13 PM CDT) Glucose, POC 201(H) 70 - 199 mg/dL [facility] Blood specimen (specimen) 11/20/2019 8:13 PM CDT 11/20/2019 8:13 PM CDT Reji Whittaker MD LAB POCT ORDERABLES - DEVICE Final Result Performing Organization Address [facility] Co de Phone Number [facility] [address] [address] [facility] [place], [place] [id number] * POCT glucose (11/20/2019 5:14 PM CDT) Glucose, POC 187 70 - 199 mg/dL [facility] Blood specimen (specimen) 11/20/2019 5:14 PM CDT 11/20/2019 5:14 PM CDT Reji Whittaker MD LAB POCT ORDERABLES - DEVICE Final Result Performing Organization Address [facility] Co de Phone Number [facility] [address] [address] [facility] [place] [address] * (ABNORMAL) POCT glucose (11/20/2019 12:24 PM CDT) Glucose, POC 362(H) 70 - 199 mg/dL [facility] Blood specimen (specimen) 11/20/2019 12:24 PM CDT 11/20/2019 12:24 PM CDT Reji Whittaker MD LAB POCT ORDERABLES - DEVICE Final Result Performing Organization Address City/[facility]/ZIP Co de Phone Number [facility] [address] [address] [facility] [place] [address] * (ABNORMAL) POCT glucose (11/20/2019 12:22 PM CDT) Glucose, POC 385(H) 70 - 199 mg/dL [facility] Blood specimen (specimen) 11/20/2019 12:22 PM CDT 11/20/2019 12:22 PM CDT Reji Whittaker MD LAB POCT ORDERABLES - DEVICE Final Result Performing Organization Address [facility] Co de Phone Number [facility] [address] [address] [facility] [place] [address] * POCT glucose (11/20/2019 6:55 AM CDT) Glucose, POC 170 70 - 199 mg/dL [facility] Blood specimen (specimen) 11/20/2019 6:55 AM CDT 11/20/2019 6:55 AM CDT Reji Whittaker MD LAB POCT ORDERABLES - DEVICE Final Result Performing Organization Address [facility] Co de Phone Number [facility] [address] [address] [facility] [place] [address] * eGFR (11/20/2019 3:58 AM CDT) eGFR 94 mL/min/1.7 3 m2 [facility] Comment: Interpretive Data Reference Interval Normal ?>/= 90 mL/min/1.73m2 Mildly decreased* ? 60 - 89 mL/min/1.73m2 Mildly to moderately decreased ?45 - 59 mL/min/1.73m2 Moderately to severely decreased ??30 - 44 mL/min/1.73m2 Severely decreased ?15 - 29 mL/min/1.73m2 Kidney Failure ?< 15 ??mL/min/1.73m2 *Relative to young adult level If -New Zealander multiply value by 1.16. Estimated glomerular filtration [...] 70. Current interpretive data was last reviewed 2015. Blood specimen (specimen) 11/20/2019 3:58 AM CDT 11/20/2019 4:39 AM CDT us Zack Johnson NP LAB BLOOD ORDERABLES Final R esult [facility] [id number] [place] [address] * (ABNORMAL) Comprehensive metabolic panel (11/20/2019 3:58 AM CDT) Sodium 137 135 - 145 mmol/L [facility] Potassium, pl 3.5 3.3 - 4.9 mmol/L [facility] Chloride 95(L) 97 - 110 mmol/L [facility] CH CO2 30 22 - 32 mmol/L [facility] Anion gap 12 2 - 15 mmol/L [facility] BUN 36(H) 8 - 25 mg/dL [facility] Creatinine 0.65 0.60 - 1.10 mg/dL [facility] Glucose 142 70 - 199 mg/dL [facility] Comment: Interpretive Data Fasting glucose >/= 126 [...] 2017. Calcium 8.7 8.5 - 10.3 mg/dL [facility] Bilirubin, total 0.2 0.1 - 1.2 mg/dL [facility] Protein, pl 7.1 6.5 - 8.5 g/dL [facility] Albumin 2.7(L) 3.5 - 5.0 g/dL [facility] Alk phos 28(L) 40 - 130 Units/L [facility] ALT 16 7 - 45 Units/L [facility] AST 19 10 - 45 Units/L [facility] Blood specimen (specimen) 11/20/2019 3:58 AM CDT 11/20/2019 4:39 AM CDT Zack Johnson PULLING UNIT OPERATOR LAB BLOOD ORDERABLES Final R esult Performing Organization Address [facility] Co de Phone Number [facility] GARRETT [address] [facility] [place] [address] * POCT glucose (11/20/2019 2:45 AM CDT) Glucose, POC 146 70 - 199 mg/dL [facility] Blood specimen (specimen) 11/20/2019 2:45 AM CDT 11/20/2019 2:45 AM CDT Reji Whittaker MD LAB POCT ORDERABLES - DEVICE Final Result Performing Organization Address [facility] Co de Phone Number [facility] [address] [place] [address] * POCT glucose (11/19/2019 11:52 PM CDT) Glucose, POC 186 70 - 199 mg/dL [facility] Blood specimen (specimen) 11/19/2019 11:52 PM CDT 11/19/2019 11:52 PM CDT Reji Whittaker MD LAB POCT ORDERABLES - DEVICE Final Result Performing Organization Address [facility] Co de Phone Number [facility] GARRETT [address] [place] [address] * (ABNORMAL) POCT glucose (11/19/2019 4:40 PM CDT) Glucose, POC 278(H) 70 - 199 mg/dL [facility] Blood specimen (specimen) 11/19/2019 4:40 PM CDT 11/19/2019 4:40 PM CDT Reji Whittaker MD LAB POCT ORDERABLES - DEVICE Final Result Performing Organization Address [facility] Co de Phone Number [facility] [address] [place] [address] * (ABNORMAL) POCT glucose (11/19/2019 12:13 PM CDT) Glucose, POC 285(H) 70 - 199 mg/dL [facility] Blood specimen (specimen) 11/19/2019 12:13 PM CDT 11/19/2019 12:13 PM CDT Reji Whittaker MD LAB POCT ORDERABLES - DEVICE Final Result Performing Organization Address [facility] de Phone Number [facility] [address] [place] [address] * POCT glucose (11/19/2019 6:14 AM CDT) Glucose, POC 183 70 - 199 mg/dL [facility] Blood specimen (specimen) 11/19/2019 6:14 AM CDT 11/19/2019 6:14 AM CDT Reji Whittaker MD LAB POCT ORDERABLES - DEVICE Final Result Performing Organization Address [facility] Co de Phone Number [facility] [address] [place] [address] * eGFR (11/19/2019 5:20 AM CDT) eGFR 97 mL/min/1.7 3 m2 [facility] Comment: Interpretive Data Reference Interval Normal ?>/= 90 mL/min/1.73m2 Mildly decreased* ? 60 - 89 mL/min/1.73m2 Mildly to moderately decreased ?45 - 59 mL/min/1.73m2 Moderately to severely decreased ??30 - 44 mL/min/1.73m2 Severely decreased ?15 - 29 mL/min/1.73m2 Kidney Failure ?< 15 ??mL/min/1.73m2 *Relative to young adult level If -New Zealander multiply value by 1.16. Estimated glomerular filtration [...] 70. Current interpretive data was last reviewed 2015. Blood specimen (specimen) 11/19/2019 5:20 AM CDT 11/19/2019 5:44 AM CDT Zack Johnson NP LAB BLOOD ORDERABLES Final R esult [facility] [address] [place] [address] * Differential, auto (11/19/2019 5:20 AM CDT) Neutrophil abs 4.7 1.7 - 6.5 K/cumm [facility] Imm gran abs 0.0 0.0 - 0.1 K/cumm [facility] Lymphocyte abs 1.9 0.8 - 3.3 K/cumm [facility] Monocyte abs 0.6 0.2 - 0.8 K/cumm [facility] Eosinophil abs 0.1 0.0 - 0.5 K/cumm [facility] Basophil abs 0.1 0.0 - 0.1 K/cumm [facility] Neutrophil pct 63.6 % [facility] Comment: Interpretive Data Percent cell count reference ranges are not reported, since discordance with absolute values may lead to misinterpretation of CBC data. Current Interpretive Data was last revised on 2017. Imm gran pct 0.5 % [facility] Comment: Interpretive Data Percent cell count reference ranges are not reported, since discordance with absolute values may lead to misinterpretation of CBC data. Current Interpretive Data was last revised on 2017. Lymphocyte pct 25.7 % [facility] Comment: Interpretive Data Percent cell count reference ranges are not reported, since discordance with absolute values may lead to misinterpretation of CBC data. Current Interpretive Data was last revised on 2017. Monocyte pct 7.4 % [facility] Comment: Interpretive Data Percent cell count reference ranges are not reported, since discordance with absolute values may lead to misinterpretation of CBC data. Current Interpretive Data was last revised on 2017. Eosinophil pct 1.6 % [facility] Comment: Interpretive Data Percent cell count reference ranges are not reported, since discordance with absolute values may lead to misinterpretation of CBC data. Current Interpretive Data was last revised on 2017. Basophil pct 1.2 % [facility] Comment: Interpretive Data Percent cell count reference ranges are not reported, since discordance with absolute values may lead to misinterpretation of CBC data. Current Interpretive Data was last revised on 2017. Blood specimen (specimen) 11/19/2019 5:20 AM CDT 11/19/2019 5:43 AM CDT us Reji Whittaker MD LAB BLOOD ORDERABLES Final Result [facility] GARRETT [address] [place] [address] * (ABNORMAL) Comprehensive metabolic panel (11/19/2019 5:20 AM CDT) Sodium 137 135 - 145 mmol/L [facility] Potassium, pl 3.5 3.3 - 4.9 mmol/L [facility] Chloride 95(L) 97 - 110 mmol/L [facility] CO2 30 22 - 32 mmol/L [facility] Anion gap 12 2 - 15 mmol/L [facility] BUN 33(H) 8 - 25 mg/dL [facility] Creatinine 0.59(L) 0.60 - 1.10 mg/dL [facility] Glucose 165 70 - 199 mg/dL [facility] Comment: Interpretive Data Fasting glucose >/= 126 [...] 2017. Calcium 8.8 8.5 - 10.3 mg/dL [facility] Bilirubin, total 0.2 0.1 - 1.2 mg/dL [facility] Protein, pl 7.3 6.5 - 8.5 g/dL [facility] Albumin 2.7(L) 3.5 - 5.0 g/dL [facility] Alk phos 25(L) 40 - 130 Units/L [facility] ALT 18 7 - 45 Units/L [facility] AST 19 10 - 45 Units/L [facility] Blood specimen (specimen) 11/19/2019 5:20 AM CDT 11/19/2019 5:44 AM CDT us Zack Johnson NP LAB BLOOD ORDERABLES Final R esult [facility] GARRETT [address] Department [place] [address] * (ABNORMAL) CBC with auto differential (11/19/2019 5:20 AM CDT) Pathologist [facility] WBC 7.4 3.8 - 9.9 K/cumm [facility] Hgb 8.1(L) 11.9 - 15.5 g/dL [facility] Hct 25.7(L) 35.6 - 45.5 % [facility] Plt 494(H) 150 - 400 K/cumm [facility] MPV 9.1 9.1 - 12.3 fL [facility] RBC 2.78(L) 3.90 - 5.20 M/cumm [facility] MCV 92.4 81.3 - 96.4 fL [facility] MCH 29.1 27.1 - 33.3 pg [facility] MCHC 31.5(L) 32.3 - 35.7 g/dL [facility] RDW CV 15.3(H) 11.1 - 14.9 % [facility] RDW SD 50.8(H) 35.7 - 48.1 fL [facility] NRBC abs 0.00 0.00 - 0.01 K/cumm [facility] Blood specimen (specimen) 11/19/2019 5:20 AM CDT 11/19/2019 5:43 AM CDT Reji Whittaker MD LAB BLOOD ORDERABLES Final Result [facility] GERRY [address] [place], [place] [id number] * (ABNORMAL) POCT glucose (11/19/2019 2:08 AM CDT) [facility] Glucose, POC 215(H) 70 - 199 mg/dL [facility] Blood specimen (specimen) 11/19/2019 2:08 AM CDT 11/19/2019 2:08 AM CDT Reji Whittaker MD LAB POCT ORDERABLES - DEVICE Final Result [facility] [place]TT [address] [facility] [place] [address] * (ABNORMAL) POCT glucose (11/18/2019 4:03 PM CDT) Glucose, POC 216(H) 70 - 199 mg/dL [facility] Blood specimen (specimen) 11/18/2019 4:03 PM CDT 11/18/2019 4:03 PM CDT Reji Whittaker MD LAB POCT ORDERABLES - DEVICE Final Result Performing Organization Address [facility] de Phone Number [facility] [address] [address] [facility] [place] [address] * (ABNORMAL) POCT glucose (11/18/2019 11:24 AM CDT) Glucose, POC 260(H) 70 - 199 mg/dL [facility] Blood specimen (specimen) 11/18/2019 11:24 AM CDT 11/18/2019 11:24 AM CDT Reji Whittaker MD LAB POCT ORDERABLES - DEVICE Final Result Performing Organization Address [facility] de Phone Number [facility] [address] [address] [facility] [place] [address] * POCT glucose (11/18/2019 6:18 AM CDT) Glucose, POC 143 70 - 199 mg/dL [facility] Blood specimen (specimen) 11/18/2019 6:18 AM CDT 11/18/2019 6:18 AM CDT Reji Whittaker MD LAB POCT ORDERABLES - DEVICE Final Result Performing Organization Address [facility] de Phone Number [facility] [address] [address] [facility] [place] [address] * eGFR (11/18/2019 5:10 AM CDT) eGFR 96 mL/min/1.7 3 m2 [facility] Comment: Interpretive Data Reference Interval Normal ?>/= 90 mL/min/1.73m2 Mildly decreased* ? 60 - 89 mL/min/1.73m2 Mildly to moderately decreased ?45 - 59 mL/min/1.73m2 Moderately to severely decreased ??30 - 44 mL/min/1.73m2 Severely decreased ?15 - 29 mL/min/1.73m2 Kidney Failure ?< 15 ??mL/min/1.73m2 *Relative to young adult level If -New Zealander multiply value by 1.16. Estimated glomerular filtration [...] 70. Current interpretive data was last reviewed 2015. Blood specimen (specimen) 11/18/2019 5:10 AM CDT 11/18/2019 5:29 AM CDT us Zack Johnson NP LAB BLOOD ORDERABLES Final R esult [facility] [address] [place] [address] * (ABNORMAL) Comprehensive metabolic panel (11/18/2019 5:10 AM CDT) Sodium 140 135 - 145 mmol/L [facility] Potassium, pl 3.7 3.3 - 4.9 mmol/L [facility] Chloride 97 97 - 110 mmol/L [facility] CO2 31 22 - 32 mmol/L [facility] Anion gap 12 2 - 15 mmol/L [facility] BUN 31(H) 8 - 25 mg/dL [facility] Creatinine 0.61 0.60 - 1.10 mg/dL [facility] Glucose 137 70 - 199 mg/dL [facility] Comment: Interpretive Data Fasting glucose >/= 126 [...] 2017. Calcium 8.8 8.5 - 10.3 mg/dL [facility] Bilirubin, total 0.2 0.1 - 1.2 mg/dL [facility] Protein, pl 7.3 6.5 - 8.5 g/dL [facility] Albumin 2.7(L) 3.5 - 5.0 g/dL [facility] Alk phos 26(L) 40 - 130 Units/L [facility] ALT 18 7 - 45 Units/L [facility] AST 24 10 - 45 Units/L [facility] Blood specimen (specimen) 11/18/2019 5:10 AM CDT 11/18/2019 5:19 AM CDT us Zack Johnson PULLING UNIT OPERATOR LAB BLOOD ORDERABLES Final R esult Performing Organization Address [facility]/ZIP Co de Phone Number LESLIEDONN GARRETT [address] [place] [address] * POCT glucose (11/18/2019 2:16 AM CDT) [facility] Glucose, POC 184 70 - 199 mg/dL [facility] Blood specimen (specimen) 11/18/2019 2:16 AM CDT 11/18/2019 2:16 AM CDT Reji Whittaker MD LAB POCT ORDERABLES - DEVICE Final Result Performing Organization Address [facility]/ZIP Co de Phone Number LESLIEDONN GARRETT [address] [place] [address] * (ABNORMAL) POCT glucose (11/17/2019 7:28 PM CDT) Glucose, POC 291(H) 70 - 199 mg/dL [facility] Blood specimen (specimen) 11/17/2019 7:28 PM CDT 11/17/2019 7:28 PM CDT Reji Whittaker MD LAB POCT ORDERABLES - DEVICE Final Result Performing Organization Address [facility] Co de Phone Number [facility]SHLE[facility] GARRETT [address] [address] [facility] [place] [address] * (ABNORMAL) POCT glucose (11/17/2019 4:54 PM CDT) Glucose, POC 301(H) 70 - 199 mg/dL [facility] Blood specimen (specimen) 11/17/2019 4:54 PM CDT 11/17/2019 4:54 PM CDT Nita Potter MD LAB POCT ORDERABLES - DEVICE Fin al Result Performing Organization Address [facility] Co de Phone Number LESLIEDONN GARRETT [address] [address] [facility] [place] [address] * POCT glucose (11/17/2019 11:20 AM CDT) Glucose, POC 165 70 - 199 mg/dL [facility] Blood specimen (specimen) 11/17/2019 11:20 AM CDT 11/17/2019 11:20 AM CDT Nita Potter MD LAB POCT ORDERABLES - DEVICE Fin al Result Performing Organization Address [facility] Co de Phone Number ASHLE[facility] GARRETT [address] [address] [facility] [place] [address] * POCT glucose (11/17/2019 6:31 AM CDT) Glucose, POC 105 70 - 199 mg/dL [facility] Blood specimen (specimen) 11/17/2019 6:31 AM CDT 11/17/2019 6:31 AM CDT us Nita Potter MD LAB POCT ORDERABLES - DEVICE Fin al Result Performing Organization Address [facility] de Phone Number ASHLE[facility] GARRETT [address] [place] [address] * eGFR (11/17/2019 4:37 AM CDT) eGFR 87 mL/min/1.7 3 m2 [facility] Comment: Interpretive Data Reference Interval Normal ?>/= 90 mL/min/1.73m2 Mildly decreased* ? 60 - 89 mL/min/1.73m2 Mildly to moderately decreased ?45 - 59 mL/min/1.73m2 Moderately to severely decreased ??30 - 44 mL/min/1.73m2 Severely decreased ?15 - 29 mL/min/1.73m2 Kidney Failure ?< 15 ??mL/min/1.73m2 *Relative to young adult level If -New Zealander multiply value by 1.16. Estimated glomerular filtration [...] 70. Current interpretive data was last reviewed 2015. Blood specimen (specimen) 11/17/2019 4:37 AM CDT 11/17/2019 4:47 AM CDT us Zack Johnson NP LAB BLOOD ORDERABLES Final R esult Performing Organization Address [facility] Co de Phone Number ASHLEIGH GARRETT [address] [address] [place] [address] * (ABNORMAL) Comprehensive metabolic panel (11/17/2019 4:37 AM CDT) Sodium 138 135 - 145 mmol/L [facility] Potassium, pl 4.0 3.3 - 4.9 mmol/L [facility] Chloride 96(L) 97 - 110 mmol/L [facility] CO2 30 22 - 32 mmol/L [facility] Anion gap 12 2 - 15 mmol/L [facility] BUN 29(H) 8 - 25 mg/dL [facility] Creatinine 0.73 0.60 - 1.10 mg/dL [facility] Glucose 109 70 - 199 mg/dL [facility] Comment: Interpretive Data Fasting glucose >/= 126 [...] 2017. Calcium 8.7 8.5 - 10.3 mg/dL [facility] Bilirubin, total 0.2 0.1 - 1.2 mg/dL [facility] Protein, pl 7.1 6.5 - 8.5 g/dL [facility] Albumin 2.6(L) 3.5 - 5.0 g/dL [facility] Alk phos 24(L) 40 - 130 Units/L [facility] ALT 20 7 - 45 Units/L [facility] AST 20 10 - 45 Units/L [facility] Blood specimen (specimen) 11/17/2019 4:37 AM CDT 11/17/2019 4:47 AM CDT us Zack Johnson NP LAB BLOOD ORDERABLES Final R esult [facility] [address] [address] [place] [address] * POCT glucose (11/17/2019 4:19 AM CDT) Glucose, POC 114 70 - 199 mg/dL [facility] Blood specimen (specimen) 11/17/2019 4:19 AM CDT 11/17/2019 4:19 AM CDT us Nita Potter MD LAB POCT ORDERABLES - DEVICE Fin al Result Performing Organization Address [facility] de Phone Number [facility] GARRETT [address] [address] [facility] [place] [address] * POCT glucose (11/17/2019 3:52 AM CDT) Glucose, POC 96 70 - 199 mg/dL [facility] Blood specimen (specimen) 11/17/2019 3:52 AM CDT 11/17/2019 3:52 AM CDT us Nita Potter MD LAB POCT ORDERABLES - DEVICE Fin al Result Performing Organization Address [facility] de Phone Number [facility] [address] [address] [facility] [place] [address] * (ABNORMAL) POCT glucose (11/17/2019 3:23 AM CDT) Glucose, POC 69(L) 70 - 199 mg/dL [facility] Blood specimen (specimen) 11/17/2019 3:23 AM CDT 11/17/2019 3:23 AM CDT us Nita Potter MD LAB POCT ORDERABLES - DEVICE Fin al Result Performing Organization Address [facility] de Phone Number [facility] [address] [address] [facility] [place] [address] * (ABNORMAL) POCT glucose (11/17/2019 2:58 AM CDT) Glucose, POC 68(L) 70 - 199 mg/dL [facility] Blood specimen (specimen) 11/17/2019 2:58 AM CDT 11/17/2019 2:58 AM CDT us Nita Potter MD LAB POCT ORDERABLES - DEVICE Fin al Result Performing Organization Address [facility] de Phone Number ASHLEIGH GARRETT [address] [place] [address] * (ABNORMAL) POCT glucose (11/17/2019 2:57 AM CDT) Glucose, POC 58(L) 70 - 199 mg/dL [facility] Blood specimen (specimen) 11/17/2019 2:57 AM CDT 11/17/2019 2:57 AM CDT us Nita Potter MD LAB POCT ORDERABLES - DEVICE Fin al Result Performing Organization Address [facility] de Phone Number [facility] [place] [address] [place] [address] * POCT glucose (11/16/2019 8:17 PM CDT) Glucose, POC 153 70 - 199 mg/dL [facility] Blood specimen (specimen) 11/16/2019 8:17 PM CDT 11/16/2019 8:17 PM CDT Result Alexandrea Potter MD LAB POCT ORDERABLES - DEVICE Fin al Result Performing Organization Address [facility] de Phone Number A[facility] [address] [place] [address] * (ABNORMAL) POCT glucose (11/16/2019 4:51 PM CDT) Glucose, POC 389(H) 70 - 199 mg/dL [facility] Blood specimen (specimen) 11/16/2019 4:51 PM CDT 11/16/2019 4:51 PM CDT Result Alexandrea Potter MD LAB POCT ORDERABLES - DEVICE Fin al Result Performing Organization Address [facility] de Phone Number [facility] [address] [address] [facility] [place] [address] * POCT glucose (11/16/2019 11:03 AM CDT) Glucose, POC 157 70 - 199 mg/dL [facility] Blood specimen (specimen) 11/16/2019 11:03 AM CDT 11/16/2019 11:03 AM CDT us Nita Potter MD LAB POCT ORDERABLES - DEVICE Fin al Result Performing Organization Address [facility] de Phone Number [facility] [address] [place] [address] * POCT glucose (11/16/2019 6:31 AM CDT) Glucose, POC 173 70 - 199 mg/dL [facility] Blood specimen (specimen) 11/16/2019 6:31 AM CDT 11/16/2019 6:31 AM CDT Reji Whittaker MD LAB POCT ORDERABLES - DEVICE Final Result Performing Organization Address [facility] de Phone Number [facility] [address] [address] [facility] [place] [address] * eGFR (11/16/2019 4:12 AM CDT) eGFR 90 mL/min/1.7 3 m2 [facility] Comment: Interpretive Data Reference Interval Normal ?>/= 90 mL/min/1.73m2 Mildly decreased* ? 60 - 89 mL/min/1.73m2 Mildly to moderately decreased ?45 - 59 mL/min/1.73m2 Moderately to severely decreased ??30 - 44 mL/min/1.73m2 Severely decreased ?15 - 29 mL/min/1.73m2 Kidney Failure ?< 15 ??mL/min/1.73m2 *Relative to young adult level If -New Zealander multiply value by 1.16. Estimated glomerular filtration [...] 70. Current interpretive data was last reviewed 2015. Blood specimen (specimen) 11/16/2019 4:12 AM CDT 11/16/2019 4:59 AM CDT us Zack Johnson NP LAB BLOOD ORDERABLES Final R esult [facility] [address] [facility] [place] [address] * (ABNORMAL) Comprehensive metabolic panel (11/16/2019 4:12 AM CDT) Sodium 138 135 - 145 mmol/L [facility] Potassium, pl 3.4 3.3 - 4.9 mmol/L [facility] Chloride 95(L) 97 - 110 mmol/L [facility] CO2 32 22 - 32 mmol/L [facility] Anion gap 11 2 - 15 mmol/L [facility] BUN 33(H) 8 - 25 mg/dL [facility] Creatinine 0.71 0.60 - 1.10 mg/dL [facility] Glucose 152 70 - 199 mg/dL [facility] Comment: Interpretive Data Fasting glucose >/= 126 [...] 2017. Calcium 8.7 8.5 - 10.3 mg/dL [facility] Bilirubin, total <0.2 0.1 - 1.2 mg/dL [facility] Protein, pl 7.2 6.5 - 8.5 g/dL [facility] Albumin 2.7(L) 3.5 - 5.0 g/dL [facility] Alk phos 38(L) 40 - 130 Units/L [facility] ALT 25 7 - 45 Units/L [facility] AST 20 10 - 45 Units/L [facility] Blood specimen (specimen) 11/16/2019 4:12 AM CDT 11/16/2019 4:59 AM CDT Zack Johnson PULLING UNIT OPERATOR LAB BLOOD ORDERABLES Final R esult Performing Organization Address [facility] Co de Phone Number A[facility]LE[facility] [address] [place] [address] * POCT glucose (11/16/2019 3:18 AM CDT) Glucose, POC 159 70 - 199 mg/dL [facility] Blood specimen (specimen) 11/16/2019 3:18 AM CDT 11/16/2019 3:18 AM CDT Reji Whittaker MD LAB POCT ORDERABLES - DEVICE Final Result [facility] [address] [place] [address] * (ABNORMAL) POCT glucose (11/15/2019 8:22 PM CDT) Glucose, POC 217(H) 70 - 199 mg/dL [facility] Blood specimen (specimen) 11/15/2019 8:22 PM CDT 11/15/2019 8:22 PM CDT Reji Whittaker MD LAB POCT ORDERABLES - DEVICE Final Result Performing Organization Address [facility] de Phone Number A[facility]LE[facility] [address]Y [address] [facility] [place] [address] * POCT glucose (11/15/2019 3:52 PM CDT) Glucose, POC 186 70 - 199 mg/dL [facility] Blood specimen (specimen) 11/15/2019 3:52 PM CDT 11/15/2019 3:52 PM CDT Reji Whittaker MD LAB POCT ORDERABLES - DEVICE Final Result Performing Organization Address [facility] de Phone Number A[facility] [address]ERRY [address] [address] [facility] [place] [address] * (ABNORMAL) POCT glucose (11/15/2019 11:58 AM CDT) Glucose, POC 280(H) 70 - 199 mg/dL [facility] Blood specimen (specimen) 11/15/2019 11:58 AM CDT 11/15/2019 11:58 AM CDT Reji Whittaker MD LAB POCT ORDERABLES - DEVICE Final Result Performing Organization Address [facility] de Phone Number [facility] GAR[address] [facility] [place] [address] * (ABNORMAL) POCT glucose (11/15/2019 6:31 AM CDT) Glucose, POC 314(H) 70 - 199 mg/dL [facility] Blood specimen (specimen) 11/15/2019 6:31 AM CDT 11/15/2019 6:31 AM CDT Reji Whittaker MD LAB POCT ORDERABLES - DEVICE Final Result Performing Organization Address [facility] de Phone Number [facility] GAR[address] [facility] [place] [address] * eGFR (11/15/2019 4:16 AM CDT) eGFR 95 mL/min/1.7 3 m2 [facility] Comment: Interpretive Data Reference Interval Normal ?>/= 90 mL/min/1.73m2 Mildly decreased* ? 60 - 89 mL/min/1.73m2 Mildly to moderately decreased ?45 - 59 mL/min/1.73m2 Moderately to severely decreased ??30 - 44 mL/min/1.73m2 Severely decreased ?15 - 29 mL/min/1.73m2 Kidney Failure ?< 15 ??mL/min/1.73m2 *Relative to young adult level If -New Zealander multiply value by 1.16. Estimated glomerular filtration [...] 70. Current interpretive data was last reviewed 2015. Blood specimen (specimen) 11/15/2019 4:16 AM CDT 11/15/2019 4:46 AM CDT us Zack Johnson NP LAB BLOOD ORDERABLES Final R esult [facility] [address] [facility] [place] [address] * (ABNORMAL) Comprehensive metabolic panel (11/15/2019 4:16 AM CDT) Sodium 135 135 - 145 mmol/L [facility] Potassium, pl 3.6 3.3 - 4.9 mmol/L [facility] Chloride 93(L) 97 - 110 mmol/L [facility] CO2 30 22 - 32 mmol/L [facility] Anion gap 12 2 - 15 mmol/L [facility] BUN 28(H) 8 - 25 mg/dL [facility] Creatinine 0.62 0.60 - 1.10 mg/dL [facility] Glucose 296(H) 70 - 199 mg/dL [facility] Comment: Interpretive Data Fasting glucose >/= 126 [...] 2017. Calcium 8.7 8.5 - 10.3 mg/dL [facility] Bilirubin, total 0.2 0.1 - 1.2 mg/dL [facility] Protein, pl 6.9 6.5 - 8.5 g/dL [facility] Albumin 2.3(L) 3.5 - 5.0 g/dL [facility] Alk phos 35(L) 40 - 130 Units/L [facility] ALT 30 7 - 45 Units/L [facility] AST 25 10 - 45 Units/L [facility] Blood specimen (specimen) 11/15/2019 4:16 AM CDT 11/15/2019 4:46 AM CDT Zack Johnson NP LAB BLOOD ORDERABLES Final R esult [facility] [address] [facility] [place] [address] * (ABNORMAL) POCT glucose (11/15/2019 2:24 AM CDT) Glucose, POC 278(H) 70 - 199 mg/dL [facility] Blood specimen (specimen) 11/15/2019 2:24 AM CDT 11/15/2019 2:24 AM CDT Reji Whittaker MD LAB POCT ORDERABLES - DEVICE Final Result Performing Organization Address [facility] Co de Phone Number ASHLEIGH [address] [facility] [place] [address] * POCT glucose (11/14/2019 8:49 PM CDT) Glucose, POC 160 70 - 199 mg/dL [facility] Blood specimen (specimen) 11/14/2019 8:49 PM CDT 11/14/2019 8:49 PM CDT Reji Whittaker MD LAB POCT ORDERABLES - DEVICE Final Result Performing Organization Address [facility] de Phone Number A[facility]LE[facility] GARRETT [address] [address] [facility] [place] [address] * (ABNORMAL) POCT glucose (11/14/2019 4:42 PM CDT) Glucose, POC 201(H) 70 - 199 mg/dL [facility] Blood specimen (specimen) 11/14/2019 4:42 PM CDT 11/14/2019 4:42 PM CDT Result [facility] Reji Whittaker MD LAB POCT ORDERABLES - DEVICE Final Result Performing Organization Address [facility] Co de Phone Number A[facility]LE[facility] GARRETT [address] [address] [facility] [place] [address] * (ABNORMAL) POCT glucose (11/14/2019 12:03 PM CDT) Glucose, POC 306(H) 70 - 199 mg/dL [facility] Blood specimen (specimen) 11/14/2019 12:03 PM CDT 11/14/2019 12:03 PM CDT Reji Whittaker MD LAB POCT ORDERABLES - DEVICE Final Result Performing Organization Address [facility] Co de Phone Number [facility] [address] [place] [address] * POCT glucose (11/14/2019 6:34 AM CDT) Pathologist [facility] Glucose, POC 154 70 - 199 mg/dL [facility] Blood specimen (specimen) 11/14/2019 6:34 AM CDT 11/14/2019 6:34 AM CDT Reji Whittaker MD LAB POCT ORDERABLES - DEVICE Final Result Performing Organization Address [facility] de Phone Number [facility] [address] [place] [address] * eGFR (11/14/2019 4:08 AM CDT) Pathologist [facility] eGFR 93 mL/min/1.7 3 m2 [facility] Comment: Interpretive Data Reference Interval Normal ?>/= 90 mL/min/1.73m2 Mildly decreased* ? 60 - 89 mL/min/1.73m2 Mildly to moderately decreased ?45 - 59 mL/min/1.73m2 Moderately to severely decreased ??30 - 44 mL/min/1.73m2 Severely decreased ?15 - 29 mL/min/1.73m2 Kidney Failure ?< 15 ??mL/min/1.73m2 *Relative to young adult level If -New Zealander multiply value by 1.16. Estimated glomerular filtration [...] 70. Current interpretive data was last reviewed 2015. Blood specimen (specimen) 11/14/2019 4:08 AM CDT 11/14/2019 4:38 AM CDT us Wendyemery Alex SEN LAB BLOOD ORDERABLES Final R esult [facility] [address] [place] [address] * (ABNORMAL) Comprehensive metabolic panel (11/14/2019 4:08 AM CDT) Sodium 137 135 - 145 mmol/L [facility] Potassium, pl 3.4 3.3 - 4.9 mmol/L [facility] Chloride 95(L) 97 - 110 mmol/L [facility] CO2 30 22 - 32 mmol/L [facility] Anion gap 12 2 - 15 mmol/L [facility] BUN 18 8 - 25 mg/dL [facility] Creatinine 0.66 0.60 - 1.10 mg/dL [facility] Glucose 170 70 - 199 mg/dL [facility] Comment: Interpretive Data Fasting glucose >/= 126 [...] 2017. Calcium 8.9 8.5 - 10.3 mg/dL [facility] Bilirubin, total 0.2 0.1 - 1.2 mg/dL [facility] Protein, pl 7.7 6.5 - 8.5 g/dL [facility] Albumin 2.4(L) 3.5 - 5.0 g/dL [facility] Alk phos 32(L) 40 - 130 Units/L [facility] ALT 39 7 - 45 Units/L [facility] AST 48(H) 10 - 45 Units/L [facility] Blood specimen (specimen) 11/14/2019 4:08 AM CDT 11/14/2019 4:38 AM CDT Wendyemery Alex PULLING UNIT OPERATOR LAB BLOOD ORDERABLES Final R esult Performing Organization Address [facility] Co de Phone Number [facility] [address] [address] [facility] [place] [address] * POCT glucose (11/14/2019 2:13 AM CDT) Glucose, POC 198 70 - 199 mg/dL [facility] Blood specimen (specimen) 11/14/2019 2:13 AM CDT 11/14/2019 2:13 AM CDT Reji Whittaker MD LAB POCT ORDERABLES - DEVICE Final Result Performing Organization Address [facility] de Phone Number ASHLEIGH [address] [address] [facility] [place] [address] * (ABNORMAL) POCT glucose (11/13/2019 8:59 PM CDT) Glucose, POC 250(H) 70 - 199 mg/dL [facility] Blood specimen (specimen) 11/13/2019 8:59 PM CDT 11/13/2019 8:59 PM CDT Reji Whittaker MD LAB POCT ORDERABLES - DEVICE Final Result Performing Organization Address [facility] Co de Phone Number [facility] [address] [address] [facility] [place] [address] * POCT glucose (11/13/2019 5:11 PM CDT) Glucose, POC 167 70 - 199 mg/dL [facility] Blood specimen (specimen) 11/13/2019 5:11 PM CDT 11/13/2019 5:11 PM CDT Lluvia Smith MD LAB POCT ORDERABLES - DEVICE F inal Result Performing Organization Address [facility] de Phone Number [facility] [address] [address] [facility] [place] [address] * POCT glucose (11/13/2019 12:21 PM CDT) Glucose, POC 87 70 - 199 mg/dL [facility] Blood specimen (specimen) 11/13/2019 12:21 PM CDT 11/13/2019 12:21 PM CDT Lluvia Smith MD LAB POCT ORDERABLES - DEVICE F inal Result Performing Organization Address [facility] de Phone Number [facility] [address] [place] [address] * POCT glucose (11/13/2019 6:31 AM CDT) Glucose, POC 156 70 - 199 mg/dL [facility] Blood specimen (specimen) 11/13/2019 6:31 AM CDT 11/13/2019 6:31 AM CDT Reji Whittaker MD LAB POCT ORDERABLES - DEVICE Final Result Performing Organization Address [facility] de Phone Number [facility] [address] [place] [address] * eGFR (11/13/2019 4:24 AM CDT) eGFR 92 mL/min/1.7 3 m2 [facility] Comment: Interpretive Data Reference Interval Normal ?>/= 90 mL/min/1.73m2 Mildly decreased* ? 60 - 89 mL/min/1.73m2 Mildly to moderately decreased ?45 - 59 mL/min/1.73m2 Moderately to severely decreased ??30 - 44 mL/min/1.73m2 Severely decreased ?15 - 29 mL/min/1.73m2 Kidney Failure ?< 15 ??mL/min/1.73m2 *Relative to young adult level If -New Zealander multiply value by 1.16. Estimated glomerular filtration [...] 70. Current interpretive data was last reviewed 2015. Blood specimen (specimen) 11/13/2019 4:24 AM CDT 11/13/2019 4:37 AM CDT Zack Johnson NP LAB BLOOD ORDERABLES Final R esult [facility] [address] [place] [address] * (ABNORMAL) Comprehensive metabolic panel (11/13/2019 4:24 AM CDT) Sodium 137 135 - 145 mmol/L [facility] Potassium, pl 3.7 3.3 - 4.9 mmol/L [facility] Chloride 96(L) 97 - 110 mmol/L [facility] CO2 31 22 - 32 mmol/L [facility] Anion gap 10 2 - 15 mmol/L [facility] BUN 17 8 - 25 mg/dL [facility] Creatinine 0.70 0.60 - 1.10 mg/dL [facility] Glucose 158 70 - 199 mg/dL [facility] Comment: Interpretive Data Fasting glucose >/= 126 [...] 2017. Calcium 8.7 8.5 - 10.3 mg/dL [facility] Bilirubin, total 0.2 0.1 - 1.2 mg/dL [facility] Protein, pl 7.3 6.5 - 8.5 g/dL [facility] Albumin 2.6(L) 3.5 - 5.0 g/dL [facility] Alk phos 28(L) 40 - 130 Units/L [facility] ALT 36 7 - 45 Units/L [facility] AST 36 10 - 45 Units/L [facility] Blood specimen (specimen) 11/13/2019 4:24 AM CDT 11/13/2019 4:37 AM CDT Zack Johnson NP LAB BLOOD ORDERABLES Final R esult [facility] [place]AR[place] [employer] [place], [place] [id number] * POCT glucose (11/13/2019 2:50 AM CDT) Glucose, POC 197 70 - 199 mg/dL [facility] Blood specimen (specimen) 11/13/2019 2:50 AM CDT 11/13/2019 2:50 AM CDT Reji Whittaker MD LAB POCT ORDERABLES - DEVICE Final Result [facility] [address] [employer] [place], [place] [id number] * (ABNORMAL) POCT glucose (11/12/2019 9:03 PM CDT) Glucose, POC 259(H) 70 - 199 mg/dL [facility] Blood specimen (specimen) 11/12/2019 9:03 PM CDT 11/12/2019 9:03 PM CDT us Reji Whittaker MD LAB POCT ORDERABLES - DEVICE Final Result Performing Organization Address [facility] Co de Phone Number A[facility]LE[facility] GARRETT [address] [address] [facility] [place] [address] * POCT glucose (11/12/2019 4:50 PM CDT) Glucose, POC 144 70 - 199 mg/dL [facility] Blood specimen (specimen) 11/12/2019 4:50 PM CDT 11/12/2019 4:50 PM CDT Reji Whittaker MD LAB POCT ORDERABLES - DEVICE Final Result Performing Organization Address [facility] de Phone Number ASHLE[facility] GARRETT [address] [address] [facility] [place] [address] * (ABNORMAL) POCT glucose (11/12/2019 11:23 AM CDT) Glucose, POC 228(H) 70 - 199 mg/dL [facility] Blood specimen (specimen) 11/12/2019 11:23 AM CDT 11/12/2019 11:23 AM CDT Reji Whittaker MD LAB POCT ORDERABLES - DEVICE Final Result Performing Organization Address [facility] Co de Phone Number A[facility]LE[facility] GARRETT [address] [address] [facility] [place] [address] * POCT glucose (11/12/2019 6:30 AM CDT) Glucose, POC 183 70 - 199 mg/dL [facility] Blood specimen (specimen) 11/12/2019 6:30 AM CDT 11/12/2019 6:30 AM CDT Reji Whittaker MD LAB POCT ORDERABLES - DEVICE Final Result Performing Organization Address [facility] Co de Phone Number A[facility]LE[facility] GARRETT [address] [place] [address] * eGFR (11/12/2019 4:26 AM CDT) eGFR 87 mL/min/1.7 3 m2 [facility] Comment: Interpretive Data Reference Interval Normal ?>/= 90 mL/min/1.73m2 Mildly decreased* ? 60 - 89 mL/min/1.73m2 Mildly to moderately decreased ?45 - 59 mL/min/1.73m2 Moderately to severely decreased ??30 - 44 mL/min/1.73m2 Severely decreased ?15 - 29 mL/min/1.73m2 Kidney Failure ?< 15 ??mL/min/1.73m2 *Relative to young adult level If -[place] Ze[place] multiply value by 1.16. Estimated glomerular filtration [...] 70. Current interpretive data was last reviewed 2015. Blood specimen (specimen) 11/12/2019 4:26 AM CDT 11/12/2019 4:41 AM CDT Zack Johnson NP LAB BLOOD ORDERABLES Final R esult Performing Organization Address [facility] Co de Phone Number [facility] GARRETT [address] [place] [address] * (ABNORMAL) Comprehensive metabolic panel (11/12/2019 4:26 AM CDT) Sodium 137 135 - 145 mmol/L [facility] Potassium, pl 3.9 3.3 - 4.9 mmol/L [facility] Chloride 96(L) 97 - 110 mmol/L [facility] CO2 31 22 - 32 mmol/L [facility] Anion gap 10 2 - 15 mmol/L [facility] BUN 17 8 - 25 mg/dL [facility] Creatinine 0.73 0.60 - 1.10 mg/dL [facility] Glucose 188 70 - 199 mg/dL [facility] Comment: Interpretive Data Fasting glucose >/= 126 [...] 2017. Calcium 8.5 8.5 - 10.3 mg/dL [facility] Bilirubin, total 0.3 0.1 - 1.2 mg/dL [facility] Protein, pl 7.0 6.5 - 8.5 g/dL [facility] Albumin 2.5(L) 3.5 - 5.0 g/dL [facility] Alk phos 29(L) 40 - 130 Units/L [facility] ALT 47(H) 7 - 45 Units/L [facility] AST 52(H) 10 - 45 Units/L [facility] Blood specimen (specimen) 11/12/2019 4:26 AM CDT 11/12/2019 4:41 AM CDT us Zack Johnson NP LAB BLOOD ORDERABLES Final R esult [facility] [address] [place] [address] * POCT glucose (11/12/2019 2:09 AM CDT) Glucose, POC 170 70 - 199 mg/dL [facility] Blood specimen (specimen) 11/12/2019 2:09 AM CDT 11/12/2019 2:09 AM CDT Reji Whittaker MD LAB POCT ORDERABLES - DEVICE Final Result Performing Organization Address [facility] de Phone Number [facility] GARRETT [address] [address] [facility] [place] [address] * (ABNORMAL) POCT glucose (11/11/2019 8:43 PM CDT) Glucose, POC 240(H) 70 - 199 mg/dL [facility] Blood specimen (specimen) 11/11/2019 8:43 PM CDT 11/11/2019 8:43 PM CDT Reji Whittaker MD LAB POCT ORDERABLES - DEVICE Final Result Performing Organization Address [facility] de Phone Number LESLIEDONN GARRETT [address] [address] [facility] [place] [address] * (ABNORMAL) POCT glucose (11/11/2019 4:17 PM CDT) Glucose, POC 237(H) 70 - 199 mg/dL [facility] Blood specimen (specimen) 11/11/2019 4:17 PM CDT 11/11/2019 4:17 PM CDT Reji Whittaker MD LAB POCT ORDERABLES - DEVICE Final Result Performing Organization Address [facility] de Phone Number A[facility]LE[facility] GARRETT [address] [address] [facility] [place] [address] * POCT glucose (11/11/2019 11:21 AM CDT) Glucose, POC 170 70 - 199 mg/dL [facility] Blood specimen (specimen) 11/11/2019 11:21 AM CDT 11/11/2019 11:21 AM CDT Reji Whittaker MD LAB POCT ORDERABLES - DEVICE Final Result Performing Organization Address [facility] de Phone Number [facility] [address] [address] [facility] [place] [address] * POCT glucose (11/11/2019 6:59 AM CDT) Glucose, POC 114 70 - 199 mg/dL [facility] Blood specimen (specimen) 11/11/2019 6:59 AM CDT 11/11/2019 6:59 AM CDT Reij Whittaker MD LAB POCT ORDERABLES - DEVICE Final Result Performing Organization Address [facility] Phone Number [facility] [address] [address] [facility] [place] [address] * eGFR (11/11/2019 4:42 AM CDT) eGFR 92 mL/min/1.7 3 m2 [facility] Comment: Interpretive Data Reference Interval Normal ?>/= 90 mL/min/1.73m2 Mildly decreased* ? 60 - 89 mL/min/1.73m2 Mildly to moderately decreased ?45 - 59 mL/min/1.73m2 Moderately to severely decreased ??30 - 44 mL/min/1.73m2 Severely decreased ?15 - 29 mL/min/1.73m2 Kidney Failure ?< 15 ??mL/min/1.73m2 *Relative to young adult level If -New Zealander multiply value by 1.16. Estimated glomerular filtration [...] 70. Current interpretive data was last reviewed 2015. Blood specimen (specimen) 11/11/2019 4:42 AM CDT 11/11/2019 5:54 AM CDT us Zack Johnson NP LAB BLOOD ORDERABLES Final R esult [facility] [address] [place] [address] * (ABNORMAL) Comprehensive metabolic panel (11/11/2019 4:42 AM CDT) Sodium 138 135 - 145 mmol/L [facility] Potassium, pl 3.4 3.3 - 4.9 mmol/L [facility] Chloride 96(L) 97 - 110 mmol/L [facility] CO2 31 22 - 32 mmol/L [facility] Anion gap 11 2 - 15 mmol/L [facility] BUN 20 8 - 25 mg/dL [facility] Creatinine 0.69 0.60 - 1.10 mg/dL [facility] Glucose 138 70 - 199 mg/dL [facility] Comment: Interpretive Data Fasting glucose >/= 126 [...] interpretive data was last revised 2017. Calcium 8.4(L) 8.5 - 10.3 mg/dL [facility] Bilirubin, total 0.3 0.1 - 1.2 mg/dL [facility] Protein, pl 6.8 6.5 - 8.5 g/dL [facility] Albumin 2.2(L) 3.5 - 5.0 g/dL [facility] Alk phos 28(L) 40 - 130 Units/L [facility] ALT 28 7 - 45 Units/L [facility] AST 25 10 - 45 Units/L [facility] Blood specimen (specimen) 11/11/2019 4:42 AM CDT 11/11/2019 5:54 AM CDT us Zack Johnson PULLING UNIT OPERATOR LAB BLOOD ORDERABLES Final R esult Performing Organization Address [facility]/ZIP Co de Phone Number [facility] GARRETT [address] [address] [facility] [place] [address] * POCT glucose (11/11/2019 2:19 AM CDT) Glucose, POC 182 70 - 199 mg/dL [facility] Blood specimen (specimen) 11/11/2019 2:19 AM CDT 11/11/2019 2:19 AM CDT us Reji Whittaker MD LAB POCT ORDERABLES - DEVICE Final Result Performing Organization Address [facility] Co de Phone Number A[facility]LE[facility] GARRETT [address] [address] [facility] [place] [address] * POCT glucose (11/10/2019 9:39 PM CDT) Glucose, POC 176 70 - 199 mg/dL [facility] Blood specimen (specimen) 11/10/2019 9:39 PM CDT 11/10/2019 9:39 PM CDT Reji Whittaker MD LAB POCT ORDERABLES - DEVICE Final Result Performing Organization Address [facility] Co de Phone Number ASHLE[facility] GARRETT [address] [address] [facility] [place], [place] [id number] * POCT glucose (11/10/2019 4:53 PM CDT) Glucose, POC 193 70 - 199 mg/dL [facility] Blood specimen (specimen) 11/10/2019 4:53 PM CDT 11/10/2019 4:53 PM CDT Reji Whittaker MD LAB POCT ORDERABLES - DEVICE Final Result Performing Organization Address [facility] de Phone Number A[facility]LE[facility] GARRETT [address] [address] [facility] [place] [address] * POCT glucose (11/10/2019 11:56 AM CDT) Glucose, POC 134 70 - 199 mg/dL [facility] Blood specimen (specimen) 11/10/2019 11:56 AM CDT 11/10/2019 11:56 AM CDT Reji Whittaker MD LAB POCT ORDERABLES - DEVICE Final Result Performing Organization Address [facility] de Phone Number [facility] [address] [place] [address] * POCT glucose (11/10/2019 7:16 AM CDT) Glucose, POC 90 70 - 199 mg/dL [facility] Blood specimen (specimen) 11/10/2019 7:16 AM CDT 11/10/2019 7:16 AM CDT Reji Whittaker MD LAB POCT ORDERABLES - DEVICE Final Result Performing Organization Address [facility] de Phone Number ASHLEIGH [address] [address] [facility] [place] [address] * eGFR (11/10/2019 5:34 AM CDT) eGFR 94 mL/min/1.7 3 m2 [facility] Comment: Interpretive Data Reference Interval Normal ?>/= 90 mL/min/1.73m2 Mildly decreased* ? 60 - 89 mL/min/1.73m2 Mildly to moderately decreased ?45 - 59 mL/min/1.73m2 Moderately to severely decreased ??30 - 44 mL/min/1.73m2 Severely decreased ?15 - 29 mL/min/1.73m2 Kidney Failure ?< 15 ??mL/min/1.73m2 *Relative to young adult level If -[place] Ze[place]ander multiply value by 1.16. Estimated glomerular filtration [...] 70. Current interpretive data was last reviewed 2015. Blood specimen (specimen) 11/10/2019 5:34 AM CDT 11/10/2019 5:34 AM CDT us Zack Johnson NP LAB BLOOD ORDERABLES Final R esult [facility] [id number] Department [place] [address] * (ABNORMAL) Comprehensive metabolic panel (11/10/2019 5:34 AM CDT) Sodium 140 135 - 145 mmol/L [facility] Potassium, pl 3.5 3.3 - 4.9 mmol/L [facility] Chloride 96(L) 97 - 110 mmol/L [facility] CO2 32 22 - 32 mmol/L [facility] Anion gap 12 2 - 15 mmol/L [facility] BUN 20 8 - 25 mg/dL [facility] Creatinine 0.65 0.60 - 1.10 mg/dL [facility] Glucose 63(L) 70 - 199 mg/dL [facility] Comment: Interpretive Data Fasting glucose >/= 126 [...] 2017. Calcium 8.6 8.5 - 10.3 mg/dL [facility] Bilirubin, total 0.3 0.1 - 1.2 mg/dL [facility] Protein, pl 7.2 6.5 - 8.5 g/dL [facility] Albumin 2.6(L) 3.5 - 5.0 g/dL [facility] Alk phos 30(L) 40 - 130 Units/L [facility] ALT 38 7 - 45 Units/L [facility] AST 40 10 - 45 Units/L [facility] Blood specimen (specimen) 11/10/2019 5:34 AM CDT 11/10/2019 5:34 AM CDT Zack Johnson NP LAB BLOOD ORDERABLES Final R esult [facility] [id number] Department [place] [address] * (ABNORMAL) Differential, auto (11/10/2019 5:28 AM CDT) Neutrophil abs 10.1(H) 1.7 - 6.5 K/cumm [facility] Imm gran abs 0.1 0.0 - 0.1 K/cumm [facility] Lymphocyte abs 1.4 0.8 - 3.3 K/cumm [facility] Monocyte abs 0.6 0.2 - 0.8 K/cumm [facility] Eosinophil abs 0.1 0.0 - 0.5 K/cumm [facility] Basophil abs 0.1 0.0 - 0.1 K/cumm [facility] Neutrophil pct 81.6 % [facility] Comment: Interpretive Data Percent cell count reference ranges are not reported, since discordance with absolute values may lead to misinterpretation of CBC data. Current Interpretive Data was last revised on 2017. Imm gran pct 0.5 % [facility] Comment: Interpretive Data Percent cell count reference ranges are not reported, since discordance with absolute values may lead to misinterpretation of CBC data. Current Interpretive Data was last revised on 2017. Lymphocyte pct 11.5 % [facility] Comment: Interpretive Data Percent cell count reference ranges are not reported, since discordance with absolute values may lead to misinterpretation of CBC data. Current Interpretive Data was last revised on 2017. Monocyte pct 5.1 % [facility] Comment: Interpretive Data Percent cell count reference ranges are not reported, since discordance with absolute values may lead to misinterpretation of CBC data. Current Interpretive Data was last revised on 2017. Eosinophil pct 0.7 % [facility] Comment: Interpretive Data Percent cell count reference ranges are not reported, since discordance with absolute values may lead to misinterpretation of CBC data. Current Interpretive Data was last revised on 2017. Basophil pct 0.6 % [facility] Comment: Interpretive Data Percent cell count reference ranges are not reported, since discordance with absolute values may lead to misinterpretation of CBC data. Current Interpretive Data was last revised on 2017. Blood specimen (specimen) 11/10/2019 5:28 AM CDT 11/10/2019 5:34 AM CDT Reji Whittaker MD LAB BLOOD ORDERABLES Final Result [facility] [id number] Department [place] [address] * (ABNORMAL) CBC with auto differential (11/10/2019 5:28 AM CDT) WBC 12.4(H) 3.8 - 9.9 K/cumm [facility] Hgb 7.9(L) 11.9 - 15.5 g/dL [facility] Hct 24.5(L) 35.6 - 45.5 % [facility] Plt 365 150 - 400 K/cumm [facility] MPV 8.9(L) 9.1 - 12.3 fL [facility] RBC 2.71(L) 3.90 - 5.20 M/cumm [facility] MCV 90.4 81.3 - 96.4 fL [facility] MCH 29.2 27.1 - 33.3 pg [facility] MCHC 32.2(L) 32.3 - 35.7 g/dL [facility] RDW CV 14.6 11.1 - 14.9 % [facility] RDW SD 48.2(H) 35.7 - 48.1 fL [facility] NRBC abs 0.00 0.00 - 0.01 K/cumm [facility] Blood specimen (specimen) 11/10/2019 5:28 AM CDT 11/10/2019 5:34 AM CDT us Reji Whittaker MD LAB BLOOD ORDERABLES Final Result [facility] [id number] Department of Laboratories [place] [id number] * Vancomycin, trough Draw trough 30 minutes prior to 4th dose. (11/10/2019 5:28 AM CDT) Vancomycin trough 13.0 10.0 - 20.0 mcg/mL [facility] Comment: Interpretive Data Desired Vancomycin trough levels are 10.0 to 20.0 mcg/mL for combined therapy with aminoglycosides (see following exceptions). Desired trough levels for specific clinical indications: - Urinary tract infections (UTI): ??5.0 mcg/mL - Methicillin Resistant staphylococcal infection: ??10.0 - 15.0 mcg/mL - Central nervous system (MICA MACHINE OPERATOR) infection, endocarditis, ??osteomyelitis, pneumonia: ??With aminoglycoside 10.0 - 15.0 mcg/mL ??Vancomycin alone ?15.0 - 20.0 mcg/mL. -- Pharmacy will manage the oversight of therapeutic monitoring and dose adjustment for vancomycin. ??Physicians may opt out of this service. ??I this service is not utilized, special attention by caregivers to the timing of the dose relative to the draw time(s) of the above levels is needed for interpretation. Blood specimen (specimen) 11/10/2019 5:28 AM CDT 11/10/2019 5:34 AM CDT Narrative [facility] - 11/10/2019 6:08 AM CDT Draw trough 30 minutes prior to 4th dose. Zack Johnson PULLING UNIT OPERATOR LAB BLOOD ORDERABLES Final R esult Performing Organization Address [facility] Co de Phone Number ASHLEIGH GARRETT [address] [address] [facility] [place] [address] * (ABNORMAL) POCT glucose (11/10/2019 2:19 AM CDT) Glucose, POC 264(H) 70 - 199 mg/dL [facility] Blood specimen (specimen) 11/10/2019 2:19 AM CDT 11/10/2019 2:19 AM CDT Reji Whittaker MD LAB POCT ORDERABLES - DEVICE Final Result Performing Organization Address [facility] de Phone Number ASHLEIGH GARRETT [address] [address] [place] [address] * (ABNORMAL) POCT glucose (11/09/2019 8:36 PM CDT) Glucose, POC 359(H) 70 - 199 mg/dL [facility] Blood specimen (specimen) 11/09/2019 8:36 PM CDT 11/09/2019 8:36 PM CDT Reji Whittaker MD LAB POCT ORDERABLES - DEVICE Final Result Performing Organization Address [facility] Co de Phone Number ASHLEIGH GARRETT [address] [address] [facility] [place] [address] * (ABNORMAL) POCT glucose (11/09/2019 6:17 PM CDT) Glucose, POC 297(H) 70 - 199 mg/dL [facility] Blood specimen (specimen) 11/09/2019 6:17 PM CDT 11/09/2019 6:17 PM CDT Reji Whittaker MD LAB POCT ORDERABLES - DEVICE Final Result Performing Organization Address [facility] Co de Phone Number ASHLEIGH [address] [address] [place] [place] [address] * (ABNORMAL) COVID-19 Coronavirus RNA Nasopharyngeal (11/09/2019 6:15 PM CDT) COVID-19 RNA Presumptive Positive(A) [facility] Comment: Presumptive positive results are reported when only one of multiple gene targets tests positive; this result is final and should be interpreted as a positive test result. The most common cause for this is the presence of SARS-CoV-2 near or below the limit of detection of the test, but this could also be attributed to detection of a different sarbecovirus. Interpretive Data Testing performed at [facility] Infectious Disease [facility]. The 2019-Novel Coronavirus [...] last revised on 2019. Testing performed by: [facility], [address] [place] [address] Nasopharyngeal 11/09/2019 6: 15 PM CDT 11/10/2019 2:52 AM CDT Narrative ASHLEIGH - 11/10/2019 3:13 PM CDT Is the patient experiencing any symptoms consistent with COVID (eg. Fever, cough, shortness of breath)?->No What is the reason for testing?->Screening prior to urgent (<12 hr) procedure, surgery, BMT, immunosuppressive therapy Karl Smith Jr., MD LAB MICROBIOLOGY - GENE RAL ORDERABLES Final Result Performing Organization Address [facility] Co de Phone Number ASHLEIGH [address] [address] [place] [address] * (ABNORMAL) Aerobic and anaerobic culture and gram stain Wound Heel, right (11/09/2019 6:15 PM CDT) Direct Specimen Exam Stain: Few polymorphonuclear leukocytes seen. Moderate Gram Positive Cocci Few Gram Negative Bacilli ASHLEIGH GARRETT Comment:Testing performed by : [facility], [address] [place] [address] Report Final Report: Moderate Mixed microorganisms. Includes the following: Moderate Proteus mirabilis Moderate Morganella morganii (.) ASHLEIGH Comment:Testing performed by : [facility], [address] [place]., [address] Organism PROTEUS MIRABILIS ASHLEIGH Organism MIXED MICROORGANISMS. ASHLEIGH Organism MORGANELLA MORGANII [facility]IGH Wound (Heel, right) 11/09/2019 6:15 PM CDT 11/09/2019 11:31 PM CDT Narrative ASHLEIGH - 11/14/2019 1:01 PM CDT Specimen received on an ESwab. Testing performed by [facility] Microbiology Laboratory ([phone]) Specimens submitted from normally sterile body sites will have all bacterial morphotypes identified. Specimens that contain grossly mixed alana and/or are from body sites that are not normally sterile will be examined for Staphylococcus aureus, Pseudomonas aeruginosa, beta-hemolytic strep, vancomycin-resistant Enterococcus, Bacteroides, Parabacteroides, Clostridium perfringens and fungus. If any of these are isolated, the organism will be reported. Current interpretive data was last revised on 2019. Organism Antibiotic Method Susceptibility Proteus mirabilis Ampicillin INTERPRETATION Susceptible Proteus mirabilis Cefazolin INTERPRETATION Intermediate Proteus mirabilis Gentamicin INTERPRETATION Susceptible Proteus mirabilis Ampicillin with Sulbactam INTERPRETA TION Susceptible Proteus mirabilis Trimethoprim with Sulfamethoxazole I NTERPRETATION Resistant Proteus mirabilis Meropenem INTERPRETATION Susceptible Proteus mirabilis Cefepime INTERPRETATION Susceptible Proteus mirabilis Ciprofloxacin INTERPRETATION Susceptible Proteus mirabilis Ceftazidime INTERPRETATION Susceptible Proteus mirabilis Ceftriaxone INTERPRETATION Susceptible Proteus mirabilis Piperacillin/Tazobactam INTERPRETATI ON Susceptible Morganella morganii Ampicillin INTERPRETATION Resistant Morganella morganii Cefazolin INTERPRETATION Resistant Morganella morganii Gentamicin INTERPRETATION Susceptible Morganella morganii Ampicillin with Sulbactam INTERPRE TATION Resistant Morganella morganii Trimethoprim with Sulfamethoxazole INTERPRETATION Susceptible Morganella morganii Meropenem INTERPRETATION Susceptible Morganella morganii Cefepime INTERPRETATION Susceptible Morganella morganii Ciprofloxacin INTERPRETATION Resistant Morganella morganii Ceftazidime INTERPRETATION Susceptible Morganella morganii Ceftriaxone INTERPRETATION Susceptible Morganella morganii Piperacillin/Tazobactam INTERPRETA TION Susceptible Oleksandr Ozuna PULLING UNIT OPERATOR LAB MICROBIOLOGY - [facility] Final Result ASHLEIGH [address] Department [place] [address] * (ABNORMAL) Aerobic and anaerobic culture and gram stain Wound Heel, left (11/09/2019 6:15 PM CDT) Direct Specimen Exam Stain: Few polymorphonuclear leukocytes seen. Rare Gram Negative Bacilli Slide reviewed and direct smear was updated. ASHLEIGH Comment:Testing performed by : [facility], [address] [place]., [address] Report Final Report: Moderate Proteus mirabilis Moderate Morganella morganii Few Mixed microorganisms. (.) ASHLEIGH Comment:Testing performed by : [facility], [address] [place]., [address] Organism M[facility]ISMS. [facility] Organism PROTEUS MIRABILIS ASHLEIGH Organism MORGANELLA MORGANII ASHLEIGH Wound (Heel, left) 11/09/2019 6:15 PM CDT 11/09/2019 11:32 PM CDT Narrative [facility] - 11/18/2019 1:27 PM CDT Specimen received on an ESwab. Testing performed by [facility] Microbiology Laboratory ([phone]) Specimens submitted from normally sterile body sites will have all bacterial morphotypes identified. Specimens that contain grossly mixed alana and/or are from body sites that are not normally sterile will be examined for Staphylococcus aureus, Pseudomonas aeruginosa, beta-hemolytic strep, vancomycin-resistant Enterococcus, Bacteroides, Parabacteroides, Clostridium perfringens and fungus. If any of these are isolated, the organism will be reported. Current interpretive data was last revised on 2019. Organism Antibiotic Method Susceptibility Proteus mirabilis Ampicillin INTERPRETATION Susceptible Proteus mirabilis Cefazolin INTERPRETATION Intermediate Proteus mirabilis Gentamicin INTERPRETATION Susceptible Proteus mirabilis Ampicillin with Sulbactam INTERPRETA TION Susceptible Proteus mirabilis Trimethoprim with Sulfamethoxazole I NTERPRETATION Resistant Proteus mirabilis Meropenem INTERPRETATION Susceptible Proteus mirabilis Cefepime INTERPRETATION Susceptible Proteus mirabilis Ciprofloxacin INTERPRETATION Susceptible Proteus mirabilis Ceftazidime INTERPRETATION Susceptible Proteus mirabilis Ceftriaxone INTERPRETATION Susceptible Proteus mirabilis Piperacillin/Tazobactam INTERPRETATI ON Susceptible Morganella morganii Ampicillin INTERPRETATION Resistant Morganella morganii Cefazolin INTERPRETATION Resistant Morganella morganii Gentamicin INTERPRETATION Susceptible Morganella morganii Ampicillin with Sulbactam INTERPRE TATION Intermediate Morganella morganii Trimethoprim with Sulfamethoxazole INTERPRETATION Susceptible Morganella morganii Meropenem INTERPRETATION Susceptible Morganella morganii Cefepime INTERPRETATION Susceptible Morganella morganii Ciprofloxacin INTERPRETATION Resistant Morganella morganii Ceftazidime INTERPRETATION Susceptible Morganella morganii Ceftriaxone INTERPRETATION Susceptible Morganella morganii Piperacillin/Tazobactam INTERPRETA TION Susceptible Oleksandr Ozuna NP LAB MICROBIOLOGY - GENERAL ORDE RABLES Final Result ASHLEIGH GARRETT [address] [place] [address] * (ABNORMAL) POCT glucose (11/09/2019 12:15 PM CDT) Glucose, POC 355(H) 70 - 199 mg/dL [facility] Blood specimen (specimen) 11/09/2019 12:15 PM CDT 11/09/2019 12:15 PM CDT Reji Whittaker MD LAB POCT ORDERABLES - DEVICE Final Result ASHLEIGH GARRETT [address] [facility] [place] [address] * (ABNORMAL) POCT glucose (11/09/2019 8:10 AM CDT) Glucose, POC 242(H) 70 - 199 mg/dL [facility] Blood specimen (specimen) 11/09/2019 8:10 AM CDT 11/09/2019 8:10 AM CDT Reji Whittaker MD LAB POCT ORDERABLES - DEVICE Final Result Performing Organization Address [facility] Co de Phone Number ASHLEIGH GERRY [address] [facility] [place] [address] * (ABNORMAL) POCT glucose (11/09/2019 2:23 AM CDT) Glucose, POC 260(H) 70 - 199 mg/dL [facility] Blood specimen (specimen) 11/09/2019 2:23 AM CDT 11/09/2019 2:23 AM CDT Reji Whittaker MD LAB POCT ORDERABLES - DEVICE Final Result Performing Organization Address [facility] de Phone Number LESLIEDONN GARRETT [address] [facility] [place] [address] * (ABNORMAL) POCT glucose (11/08/2019 10:30 PM CDT) Glucose, POC 275(H) 70 - 199 mg/dL [facility] Blood specimen (specimen) 11/08/2019 10:30 PM CDT 11/08/2019 10:30 PM CDT Reji Whittaker MD LAB POCT ORDERABLES - DEVICE Final Result Performing Organization Address [facility] de Phone Number LESLIEDONN GARRETT [address] [address] [facility] [place] [address] * CT Abdomen Pelvis W Contrast (11/08/2019 6:03 PM CDT) Anatomical Region Laterality Modality Body N/A Computed Tomogra phy 11/08/2019 6:50 PM CDT Impressions 11/08/2019 6:59 PM CDT Cardiomegaly and small pericardial effusion Very large well-circumscribed fluid collection associated with surgical samara in the ventral abdominal wall suggesting a large seroma Marked bladder wall thickening suspicious for either chronic inflammation and/or possible neoplasm Numerous possible lytic foci in the thoracic and lumbar vertebra as noted above recommend MR imaging with and without contrast if possible Electronically signed by: Twan Bell M.D. Narrative 11/08/2019 6:59 PM CDT EXAMINATION: CT ABDOMEN AND PELVIS WITH IV CONTRAST HISTORY: Abdominal infection suspected abdominal pain TECHNIQUE: Transaxial imaging through the abdomen and pelvis was performed with 2-D reformats following the intravenous administration of approximately 100 mL of Optiray-350. FINDINGS: There are no acute changes in the visualized lung bases. There is cardiomegaly and a small pericardial effusion There is no sign of pneumoperitoneum. The liver was unremarkable. The gallbladder, spleen and pancreas were unremarkable. There is a normal appearance of both adrenal glands and both kidneys. The small bowel pattern is not significantly dilated and there are no significant air-fluid levels. ??There is a normal-appearing appendix. There is moderate fecal loading of the colon. There is rectal fecal impaction. There is no ascites or increased cul-de-sac fluid. ??There is heterogenous uterine enlargement consistent with small fibroids. The urinary bladder is decompressed by Kaplan catheter with an air-fluid level and demonstrates marked concentric wall thickening up to 15 mm in diameter. The anterior abdominal wall is a large well-circumscribed fluid collection beginning with a line of surgical samara in the midabdomen reaches a diameter of up to 10 cm extending down to the level of the umbilicus with a craniocaudal length of at least 20 cm. There are prominent atherosclerotic vascular calcifications throughout the aorta and iliac vessels and visceral arteries all of small caliber.. There are degenerative spine changes with generalized spondylosis. There are hypodense foci which appear to be possible lytic lesions resorbing the trabecular pattern and somewhat irregular in the T10 vertebral body somewhat patchy in T11 and more circumscribed at T12 and L1. Procedure Note Twan Bell MD - 11/08/2019 EXAMINATION: CT ABDOMEN AND PELVIS WITH IV CONTRAST HISTORY: Abdominal infection suspected abdominal pain TECHNIQUE: Transaxial imaging through the abdomen and pelvis was performed with 2-D reformats following the intravenous administration of approximately 100 mL of Optiray-350. FINDINGS: There are no acute changes in the visualized lung bases. There is cardiomegaly and a small pericardial effusion There is no sign of pneumoperitoneum. The liver was unremarkable. The gallbladder, spleen and pancreas were unremarkable. There is a normal appearance of both adrenal glands and both kidneys. The small bowel pattern is not significantly dilated and there are no significant air-fluid levels. There is a normal-appearing appendix. There is moderate fecal loading of the colon. There is rectal fecal impaction. There is no ascites or increased cul-de-sac fluid. There is heterogenous uterine enlargement consistent with small fibroids. The urinary bladder is decompressed by Kaplan catheter with an air-fluid level and demonstrates marked concentric wall thickening up to 15 mm in diameter. The anterior abdominal wall is a large well-circumscribed fluid collection beginning with a line of surgical samara in the midabdomen reaches a diameter of up to 10 cm extending down to the level of the umbilicus with a craniocaudal length of at least 20 cm. There are prominent atherosclerotic vascular calcifications throughout the aorta and iliac vessels and visceral arteries all of small caliber.. There are degenerative spine changes with generalized spondylosis. There are hypodense foci which appear to be possible lytic lesions resorbing the trabecular pattern and somewhat irregular in the T10 vertebral body somewhat patchy in T11 and more circumscribed at T12 and L1. IMPRESSION: Cardiomegaly and small pericardial effusion Very large well-circumscribed fluid collection associated with surgical samara in the ventral abdominal wall suggesting a large seroma Marked bladder wall thickening suspicious for either chronic inflammation and/or possible neoplasm Numerous possible lytic foci in the thoracic and lumbar vertebra as noted above recommend MR imaging with and without contrast if possible Electronically signed by: Twan Bell M.D. Markel Bourgeois MD IMG CT PROCEDURES Final Result * (ABNORMAL) POCT glucose (11/08/2019 5:39 PM CDT) Glucose, POC 253(H) 70 - 199 mg/dL [facility] Blood specimen (specimen) 11/08/2019 5:39 PM CDT 11/08/2019 5:39 PM CDT Reji Whittaker MD LAB POCT ORDERABLES - DEVICE Final Result ASHLEIGH GARRETT [address] [address] [place] [address] * (ABNORMAL) POCT glucose (11/08/2019 3:03 PM CDT) Glucose, POC 243(H) 70 - 199 mg/dL ASHLEIGH GARRETT Blood specimen (specimen) 11/08/2019 3:03 PM CDT 11/08/2019 3:03 PM CDT Reji Whittaker MD LAB POCT ORDERABLES - DEVICE Final Result Performing Organization Address [facility] Co de Phone Number ASHLEIGH GARRETT [address] [address] [place] [address] * US ZAYNAB And Arterial Doppler Lower Extremity Bilateral (11/08/2019 12:14 PM CDT) Anatomical Region Laterality Modality Vascular Bilateral Ultrasound 11/08/2019 12:2 0 PM CDT Impressions 11/08/2019 12:22 PM CDT There is severe arterial insufficiency in both lower extremities, primarily in an infrapopliteal location. Electronically signed by: Antonino Jane M.D. 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 ??There is a history of diabetes and hypertension as well as hyperlipidemia. TECHNIQUE: Ankle-brachial index measurements were obtained bilaterally along with Doppler waveform recordings in both lower extremities. FINDINGS: Systolic pressure in the right brachial artery is 1 65 mmHg and in the left is 1 21 mmHg. Ankle-brachial index measurement on the right side is 0.32 and on the left side is 0.22. Triphasic waveforms were obtained in both femoral arteries with biphasic waveforms being obtained in both popliteal arteries and monophasic waveforms being obtained in both posterior tibial and dorsalis pedis arteries. Almost flattened waveforms were obtained in the right and the left 1st digits. 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 There is a history of diabetes and hypertension as well as hyperlipidemia. TECHNIQUE: Ankle-brachial index measurements were obtained bilaterally along with Doppler waveform recordings in both lower extremities. FINDINGS: Systolic pressure in the right brachial artery is 1 65 mmHg and in the left is 1 21 mmHg. Ankle-brachial index measurement on the right side is 0.32 and on the left side is 0.22. Triphasic waveforms were obtained in both femoral arteries with biphasic waveforms being obtained in both popliteal arteries and monophasic waveforms being obtained in both posterior tibial and dorsalis pedis arteries. Almost flattened waveforms were obtained in the right and the left 1st digits. IMPRESSION: There is severe arterial insufficiency in both lower extremities, primarily in an infrapopliteal location. Electronically signed by: Antonino Jane M.D. Zack Johnson PULLING UNIT OPERATOR IMG US PROCEDURES Final Resu lt * (ABNORMAL) POCT glucose (11/08/2019 8:39 AM CDT) Pathologist [facility] Glucose, POC 211(H) 70 - 199 mg/dL [facility] Blood specimen (specimen) 11/08/2019 8:39 AM CDT 11/08/2019 8:39 AM CDT Reji Whittaker MD LAB POCT ORDERABLES - DEVICE Final Result [facility] [address] Department [place] [address] * eGFR (11/08/2019 8:12 AM CDT) Pathologist [facility] eGFR 79 mL/min/1.7 3 m2 [facility] GARRETT Comment: Interpretive Data Reference Interval Normal ?>/= 90 mL/min/1.73m2 Mildly decreased* ? 60 - 89 mL/min/1.73m2 Mildly to moderately decreased ?45 - 59 mL/min/1.73m2 Moderately to severely decreased ??30 - 44 mL/min/1.73m2 Severely decreased ?15 - 29 mL/min/1.73m2 Kidney Failure ?< 15 ??mL/min/1.73m2 *Relative to young adult level If -[place] Ze[place] multiply value by 1.16. Estimated glomerular filtration [...] 70. Current interpretive data was last reviewed 2015. Blood specimen (specimen) 11/08/2019 8:12 AM CDT 11/08/2019 8:42 AM CDT us Zack Johnson NP LAB BLOOD ORDERABLES Final R esult [facility] [address] Department [place] [address] * (ABNORMAL) Differential, auto (11/08/2019 8:12 AM CDT) Neutrophil abs 10.9(H) 1.7 - 6.5 K/cumm [facility] Imm gran abs 0.1 0.0 - 0.1 K/cumm [facility] Lymphocyte abs 1.3 0.8 - 3.3 K/cumm [facility] Monocyte abs 0.5 0.2 - 0.8 K/cumm [facility] Eosinophil abs 0.1 0.0 - 0.5 K/cumm [facility] Basophil abs 0.1 0.0 - 0.1 K/cumm [facility] Neutrophil pct 84.2 % [facility] Comment: Interpretive Data Percent cell count reference ranges are not reported, since discordance with absolute values may lead to misinterpretation of CBC data. Current Interpretive Data was last revised on 2017. Imm gran pct 0.6 % [facility] Comment: Interpretive Data Percent cell count reference ranges are not reported, since discordance with absolute values may lead to misinterpretation of CBC data. Current Interpretive Data was last revised on 2017. Lymphocyte pct 10.3 % [facility] Comment: Interpretive Data Percent cell count reference ranges are not reported, since discordance with absolute values may lead to misinterpretation of CBC data. Current Interpretive Data was last revised on 2017. Monocyte pct 3.8 % [facility] Comment: Interpretive Data Percent cell count reference ranges are not reported, since discordance with absolute values may lead to misinterpretation of CBC data. Current Interpretive Data was last revised on 2017. Eosinophil pct 0.6 % [facility] Comment: Interpretive Data Percent cell count reference ranges are not reported, since discordance with absolute values may lead to misinterpretation of CBC data. Current Interpretive Data was last revised on 2017. Basophil pct 0.5 % [facility] Comment: Interpretive Data Percent cell count reference ranges are not reported, since discordance with absolute values may lead to misinterpretation of CBC data. Current Interpretive Data was last revised on 2017. Blood specimen (specimen) 11/08/2019 8:12 AM CDT 11/08/2019 8:43 AM CDT Reji Whittaker MD LAB BLOOD ORDERABLES Final Result [facility] [address] Department [place] [address] * (ABNORMAL) CBC with auto differential (11/08/2019 8:12 AM CDT) WBC 13.0(H) 3.8 - 9.9 K/cumm [facility] Hgb 8.1(L) 11.9 - 15.5 g/dL [facility] Hct 25.2(L) 35.6 - 45.5 % [facility] Plt 363 150 - 400 K/cumm [facility] MPV 9.1 9.1 - 12.3 fL [facility] RBC 2.80(L) 3.90 - 5.20 M/cumm [facility] MCV 90.0 81.3 - 96.4 fL [facility] MCH 28.9 27.1 - 33.3 pg [facility] MCHC 32.1(L) 32.3 - 35.7 g/dL [facility] RDW CV 14.6 11.1 - 14.9 % [facility] RDW SD 46.9 35.7 - 48.1 fL [facility] NRBC abs 0.00 0.00 - 0.01 K/cumm [facility] Blood specimen (specimen) 11/08/2019 8:12 AM CDT 11/08/2019 8:43 AM CDT us Reji Whittaker MD LAB BLOOD ORDERABLES Final Result [facility] [address] Department [place] [address] * Blood culture Blood (11/08/2019 8:12 AM CDT) Report Final Report: No growth [facility] Comment:Testing performed by : [facility], [address] [place]., [address] Blood specimen (specimen) 11/08/2019 8:12 AM CDT 11/08/2019 12:36 PM CDT Narrative [facility] - 11/12/2019 4:01 PM CDT From a different site than #1. 1. ?Blood cultures are incubated for 4 days on a continuously monitored blood culture system. The first report of a negative culture is issued within 24 hours of receipt of the specimen in the laboratory. 2. ?Positive culture results are reported as soon as they are detected. 3. ?The most important factor for detection of microbes in the setting of bloodstream infection is the volume of blood submitted for culture. Failure to collect an optimal blood volume can result in false negative blood cultures. For pediatric patients, the recommended blood volume to collect is 1 mL of blood per year of patient age (up to 20 mL) per blood culture set. For adult patients, 20 mL of blood, divided equally between aerobic and anaerobic blood culture bottles, is recommended for each blood culture set. 4. ?For blood cultures with Gram-positive cocci, a rapid molecular test for organism identification may be performed using the [employer] Gram-Positive Blood Culture Assay. This assay detects microbial DNA in positive blood culture broth via hybridization of target DNA to capture oligonucleotides on a microarray. This assay has been cleared by the [place] Food and Drug Administration and its performance characteristics have been verified by the [facility]. 5. ?For questions about this culture, contact the Microbiology Laboratory at [phone]. Interpretive data was last revised on 2019. Mrakel Bourgeois MD LAB MICROBIOLOGY - GENER AL ORDERABLES Final Result [facility] [address] Department [place] [address] * Blood culture Blood (11/08/2019 8:12 AM CDT) Report Final Report: No growth [facility] Comment:Testing performed by : [facility], [address] [place]., [address] Blood specimen (specimen) 11/08/2019 8:12 AM CDT 11/08/2019 12:36 PM CDT [place] [facility] - 11/12/2019 4:01 PM CDT 1. ?Blood cultures are incubated for 4 days on a continuously monitored blood culture system. The first report of a negative culture is issued within 24 hours of receipt of the specimen in the laboratory. 2. ?Positive culture results are reported as soon as they are detected. 3. ?The most important factor for detection of microbes in the setting of bloodstream infection is the volume of blood submitted for culture. Failure to collect an optimal blood volume can result in false negative blood cultures. For pediatric patients, the recommended blood volume to collect is 1 mL of blood per year of patient age (up to 20 mL) per blood culture set. For adult patients, 20 mL of blood, divided equally between aerobic and anaerobic blood culture bottles, is recommended for each blood culture set. 4. ?For blood cultures with Gram-positive cocci, a rapid molecular test for organism identification may be performed using the [employer] Gram-Positive Blood Culture Assay. This assay detects microbial DNA in positive blood culture broth via hybridization of target DNA to capture oligonucleotides on a microarray. This assay has been cleared by the [place] Food and Drug Administration and its performance characteristics have been verified by the [facility]. 5. ?For questions about this culture, contact the Microbiology Laboratory at [phone]. Interpretive data was last revised on 2019. Markel Bourgeois MD LAB MICROBIOLOGY - [facility] AL ORDERABLES Final Result [facility] [address] [place] [address] * (ABNORMAL) Comprehensive metabolic panel (11/08/2019 8:12 AM CDT) Sodium 136 135 - 145 mmol/L [facility] Potassium, pl 3.3 3.3 - 4.9 mmol/L [facility] Chloride 95(L) 97 - 110 mmol/L [facility] CO2 30 22 - 32 mmol/L [facility] Anion gap 11 2 - 15 mmol/L [facility] BUN 23 8 - 25 mg/dL [facility] Creatinine 0.79 0.60 - 1.10 mg/dL [facility] Glucose 208(H) 70 - 199 mg/dL [facility] Comment: Interpretive Data Fasting glucose >/= 126 [...] interpretive data was last revised 2017. Calcium 8.2(L) 8.5 - 10.3 mg/dL [facility] Bilirubin, total 0.8 0.1 - 1.2 mg/dL [facility] Protein, pl 7.3 6.5 - 8.5 g/dL [facility] Albumin 2.5(L) 3.5 - 5.0 g/dL [facility] Alk phos 34(L) 40 - 130 Units/L [facility] ALT 32 7 - 45 Units/L [facility] AST 31 10 - 45 Units/L [facility] Blood specimen (specimen) 11/08/2019 8:12 AM CDT 11/08/2019 8:42 AM CDT us Zack Johnson PULLING UNIT OPERATOR LAB BLOOD ORDERABLES Final R esult Performing Organization Address [facility] Co de Phone Number [facility] [address] [address] [facility] [place] [address] * Transfuse RBC (11/08/2019 6:08 AM CDT) Blood specimen (specimen) Reji Whittaker MD BLOOD TRANSFUSION OR DERABLES Final Result Performing Organization Address [facility] Co de Phone Number [facility] [address] [place] [address] * Transfuse RBC: 1 Units (11/08/2019 6:08 AM CDT) Blood specimen (specimen) Reji Whittaker MD BLOOD TRANSFUSION OR DERABLES Final Result * (ABNORMAL) POCT glucose (11/07/2019 10:35 PM CDT) Glucose, POC 265(H) 70 - 199 mg/dL [facility] Blood specimen (specimen) 11/07/2019 10:35 PM CDT 11/07/2019 10:35 PM CDT Reji Whittaker MD LAB POCT ORDERABLES - DEVICE Final Result Performing Organization Address City/[facility]/ZIP Co de Phone Number [facility] GARRETT [address] [place] [address] * Type and screen (11/07/2019 6:20 PM CDT) Veronica, indirect Negative [facility] ABO Rh O Positive [facility] Blood specimen (specimen) 11/07/2019 6:20 PM CDT 11/07/2019 6:40 PM CDT Narrative [facility] - 11/07/2019 7:21 PM CDT Has the patient had Daratumumab or Isatuximab in the past 6 months?->Unknown Reji Whittaker MD LAB BLOOD BANK TEST ORDERABLES Final Result Performing Organization Address [facility]/ZIP Co de Phone Number [facility] GERRY [address] [address] [place], [place] [id number] * POCT glucose (11/07/2019 6:03 PM CDT) Pathologist [facility] Glucose, POC 169 70 - 199 mg/dL [facility] Blood specimen (specimen) 11/07/2019 6:03 PM CDT 11/07/2019 6:03 PM CDT Reji Whittaker MD LAB POCT ORDERABLES - DEVICE Final Result Performing Organization Address [facility] Co de Phone Number [facility] GAR[place]TT [address] [place] [address] * Prepare RBC: 1 Units (11/07/2019 5:51 PM CDT) Pathologist [facility] Product code [id number] [facility] Unit Number [id number] O [facility] Product Blood Type OPOS [facility] Dispense Status PRESUMED TRANSFUSED [facility] Blood specimen (specimen) 11/07/2019 5:51 PM CDT Narrative [facility] - 11/08/2019 7:17 AM CDT Are special requirements needed? (all products are leukoreduced)->No Date required:-[id number] LRRBC # of [id number] Reasons:-Hgb <7 g/dL} Reji Whittaker MD BLOOD BANK PRODUCT O RDERABLES Final Result Performing Organization Address [facility] de Phone Number [facility] [address] [address] [facility] [place] [address] * (ABNORMAL) POCT glucose (11/07/2019 12:43 PM CDT) Glucose, POC 209(H) 70 - 199 mg/dL [facility] Blood specimen (specimen) 11/07/2019 12:43 PM CDT 11/07/2019 12:43 PM CDT Duke Bernstein MD LAB POCT ORDERABLES - DEVICE Fi nal Result Performing Organization Address [facility] de Phone Number [facility] [address] [address] [facility] [place] [address] * Check Sample (11/07/2019 11:24 AM CDT) ABO Rh O Positive [facility] HCLL OTHER 11/07/2019 11:2 4 AM CDT 11/07/2019 6:36 PM CDT Reji Whittaker MD LAB BLOOD ORDERABLES Final Result Performing Organization Address [facility] de Phone Number [facility] [address] [address] [facility] [place] [address] * eGFR (11/07/2019 11:24 AM CDT) eGFR 62 mL/min/1.7 3 m2 [facility] Comment: Interpretive Data Reference Interval Normal ?>/= 90 mL/min/1.73m2 Mildly decreased* ? 60 - 89 mL/min/1.73m2 Mildly to moderately decreased ?45 - 59 mL/min/1.73m2 Moderately to severely decreased ??30 - 44 mL/min/1.73m2 Severely decreased ?15 - 29 mL/min/1.73m2 Kidney Failure ?< 15 ??mL/min/1.73m2 *Relative to young adult level If -[place] Ze[place] multiply value by 1.16. Estimated glomerular filtration [...] 70. Current interpretive data was last reviewed 2015. Blood specimen (specimen) 11/07/2019 11:24 AM CDT 11/07/2019 11:55 AM CDT us Zack Johnson NP LAB BLOOD ORDERABLES Final R esult [facility] [address] [place] [address] * (ABNORMAL) Differential, auto (11/07/2019 11:24 AM CDT) Neutrophil abs 12.4(H) 1.7 - 6.5 K/cumm [facility] Imm gran abs 0.1 0.0 - 0.1 K/cumm [facility] Lymphocyte abs 1.2 0.8 - 3.3 K/cumm [facility] Monocyte abs 0.5 0.2 - 0.8 K/cumm [facility] Eosinophil abs 0.1 0.0 - 0.5 K/cumm [facility] Basophil abs 0.0 0.0 - 0.1 K/cumm [facility] Neutrophil pct 86.8 % [facility] Comment: Interpretive Data Percent cell count reference ranges are not reported, since discordance with absolute values may lead to misinterpretation of CBC data. Current Interpretive Data was last revised on 2017. Imm gran pct 0.7 % [facility] Comment: Interpretive Data Percent cell count reference ranges are not reported, since discordance with absolute values may lead to misinterpretation of CBC data. Current Interpretive Data was last revised on 2017. Lymphocyte pct 8.3 % [facility] Comment: Interpretive Data Percent cell count reference ranges are not reported, since discordance with absolute values may lead to misinterpretation of CBC data. Current Interpretive Data was last revised on 2017. Monocyte pct 3.3 % [facility] Comment: Interpretive Data Percent cell count reference ranges are not reported, since discordance with absolute values may lead to misinterpretation of CBC data. Current Interpretive Data was last revised on 2017. Eosinophil pct 0.6 % [facility] Comment: Interpretive Data Percent cell count reference ranges are not reported, since discordance with absolute values may lead to misinterpretation of CBC data. Current Interpretive Data was last revised on 2017. Basophil pct 0.3 % [facility] Comment: Interpretive Data Percent cell count reference ranges are not reported, since discordance with absolute values may lead to misinterpretation of CBC data. Current Interpretive Data was last revised on 2017. Blood specimen (specimen) 11/07/2019 11:24 AM CDT 11/07/2019 11:55 AM CDT Zack Johnson NP LAB BLOOD ORDERABLES Final R esult [facility] [address] Department [place] [address] * (ABNORMAL) Comprehensive metabolic panel (11/07/2019 11:24 AM CDT) Sodium 135 135 - 145 mmol/L [facility] Potassium, pl 3.4 3.3 - 4.9 mmol/L [facility] Chloride 94(L) 97 - 110 mmol/L [facility] CO2 28 22 - 32 mmol/L [facility] Anion gap 13 2 - 15 mmol/L [facility] BUN 33(H) 8 - 25 mg/dL [facility] Creatinine 0.96 0.60 - 1.10 mg/dL [facility] Glucose 197 70 - 199 mg/dL [facility] Comment: Interpretive Data Fasting glucose >/= 126 [...] 2017. Calcium 8.5 8.5 - 10.3 mg/dL [facility] Bilirubin, total 0.5 0.1 - 1.2 mg/dL [facility] Protein, pl 7.6 6.5 - 8.5 g/dL [facility] Albumin 2.6(L) 3.5 - 5.0 g/dL [facility] Alk phos 35(L) 40 - 130 Units/L [facility] ALT 42 7 - 45 Units/L [facility] AST 36 10 - 45 Units/L [facility] Blood specimen (specimen) 11/07/2019 11:24 AM CDT 11/07/2019 11:55 AM CDT Zack Johnson NP LAB BLOOD ORDERABLES Final R esult [facility] [address] [place] [address] * (ABNORMAL) Hemoglobin A1c (11/07/2019 11:24 AM CDT) Hgb A1C 8.6(H) 4.0 - 5.6 % [facility] Estimated Average Glucose 200 mg/dL [facility] Comment: The ADA recommends reporting an estimated Average Glucose (eAG) with all Hemoglobin A1c results using the equation derived from a study of 507 normal and diabetic adults. ??Minority populations were underrepresented and children were not included. ?? (Diabetes Care 31:5905-7014, 2008). ??The eAG is not equivalent to a fasting glucose. Blood specimen (specimen) 11/07/2019 11:24 AM CDT 11/07/2019 11:49 AM CDT Zack Johnson NP LAB BLOOD ORDERABLES Final R esult Performing Organization Address City/[facility]/ZIP Co de Phone Number [facility] [address] [place] [place] [address] * (ABNORMAL) CBC with auto differential (11/07/2019 11:24 AM CDT) WBC 14.3(H) 3.8 - 9.9 K/cumm [facility] Hgb 6.7(L) 11.9 - 15.5 g/dL [facility] Hct 22.0(L) 35.6 - 45.5 % [facility] Plt 404(H) 150 - 400 K/cumm [facility] MPV 9.4 9.1 - 12.3 fL [facility] RBC 2.37(L) 3.90 - 5.20 M/cumm [facility] MCV 92.8 81.3 - 96.[address] [address] MCH 28.3 27.1 - 33.3 pg [facility] MCHC 30.5(L) 32.3 - 35.7 g/dL [facility] RDW CV 14.8 11.1 - 14.9 % [facility] RDW SD 50.0(H) 35.7 - 48.1 fL [facility] NRBC abs 0.00 0.00 - 0.01 K/cumm [facility] Blood specimen (specimen) 11/07/2019 11:24 AM CDT 11/07/2019 11:55 AM CDT Zack Johnson NP LAB BLOOD ORDERABLES Final R esult [facility] GAR[facility]TT [address] [address] [place] [address] * POCT glucose (11/07/2019 8:22 AM CDT) Glucose, POC 151 70 - 199 mg/dL [facility] Blood specimen (specimen) 11/07/2019 8:22 AM CDT 11/07/2019 8:22 AM CDT us Duke Bernstein MD LAB POCT ORDERABLES - DEVICE Fi nal Result Performing Organization Address [facility] Co de Phone Number [facility] [address] [address] [place] [address] * (ABNORMAL) Urine culture Urine, in and out catheter (11/07/2019 1:45 AM CDT) Report Final Report: Growth indicates contamination with mixed bacterial alana. Please submit a new specimen with special attention given to the collection process and to prompt transport to the laboratory. (.) [facility] Comment:Testing performed by : [facility], [address] [place] [address]., [address] Organism GROWTH INDICATES CONTAMINATION WITH MIXED ALANA. [facility] Urine, in and out catheter 11/07/2019 1:45 AM CDT 11/07/2019 8:27 AM CDT Narrative [facility] - 11/11/2019 8:00 PM CDT Urine culture reflexed based upon urinalysis results. Testing performed by [facility] ([phone]) us Zack Johnson NP LAB MICROBIOLOGY - GENERAL O RDERABLES Final Result Performing Organization Address [facility] Co de Phone Number L[place]IEDONN GARRETT [address] [address] [place] [address] * (ABNORMAL) Urinalysis, microscopic only (11/07/2019 1:45 AM CDT) WBC, ur >50(A) 0 - 5 /HPF [facility] RBC, ur >50(A) 0 - 2 /HPF [facility] Epithelial cells, squamous, ur 1-5 0 - 5 /HPF [facility] Bacteria, ur 4+(A) [facility] Culture Reflex Comment Reflex to urine culture will be performed. [facility] Urine, in and out catheter 11/07/2019 1:45 AM CDT 11/07/2019 2:31 AM CDT Zack Johnson NP LAB URINE ORDERABLES Final R esult Performing Organization Address City/[facility]/ZIP Co de Phone Number [facility] GARRETT [address] [address] [place] [address] * (ABNORMAL) Urinalysis reflex to microscopic and culture Urine, in and out catheter (11/07/2019 1:45AM CDT) Color, ur Yellow Yellow [facility] Clarity, ur Turbid(A) Clear [facility] Specific gravity, ur 1.012 1.010 - 1.025 [facility] pH, urine 5.0 [facility] Protein, ur ql 2+(A) Negative [facility] Glucose, ur ql Negative Negative [facility] Ketones, ur Negative Negative [facility] Bilirubin, ur Negative Negative [facility] Blood, ur 2+(A) Negative [facility] Urobilinogen, ur 2.0(A) <2.0 mg/dL [facility] Nitrite, ur Negative Negative [facility] Leukocyte esterase, ur 4+(A) Negative [facility] UA reflex comment Reflex to microscopic UA will be performed. [facility] Urine, in and out catheter 11/07/2019 1:45 AM CDT 11/07/2019 2:31 AM CDT Narrative [facility] - 11/07/2019 2:36 AM CDT ?? Urine pH is affected by diet, medications, systemic acid-base disturbances, and renal tubular function. ??pH may affect urinary stone formation. ??For example, urine pH below 6.0 may help reduce the tendency for calcium phosphate stones and pH greater than 6.0 may reduce the tendency for uric acid stone formation. Source: [facility]. Last revised 03-23-2017 Zack Johnson NP LAB MICROBIOLOGY - GENERAL O RDERABLES Final Result Performing Organization Address [facility]/ZIP Co de Phone Number [facility] GARRETT [address] [address] [place] [address] * Sepsis Lactate w/ Reflex (11/06/2019 11:55 PM CDT) Sepsis Lactate 1.7 0.7 - 2.0 mmol/L [facility] Blood specimen (specimen) 11/06/2019 11:55 PM CDT 11/07/2019 12:07 AM CDT Sina Schilling MD LAB BLOOD ORDERABLES Final Result [facility] [address] [address] [place] [address] * XR Abdomen Ap 1 Vw (11/06/2019 11:00 PM CDT) Anatomical Region Laterality Modality Body, Abdomen N/A Computed Radiogr aphy 11/07/2019 6:51 AM CDT Impressions 11/07/2019 6:51 AM CDT Normal gas pattern. Electronically signed by: Antonino Jane M.D. Narrative 11/07/2019 6:51 AM CDT EXAMINATION: XR ABDOMEN AP 1 VIEW HISTORY: The patient is a 64-year-old female who presents with abdominal distention. TECHNIQUE: AP portable supine view of the abdomen. FINDINGS: Normal intestinal gas pattern. No dilated small or large bowel loops. Samara and clips are seen overlying the lower abdomen and pelvis from prior surgery. Procedure Note Antonino Jane MD - 11/07/2019 EXAMINATION: XR ABDOMEN AP 1 VIEW HISTORY: The patient is a 64-year-old female who presents with abdominal distention. TECHNIQUE: AP portable supine view of the abdomen. FINDINGS: Normal intestinal gas pattern. No dilated small or large bowel loops. Wesley and clips are seen overlying the lower abdomen and pelvis from prior surgery. IMPRESSION: Normal gas pattern. Electronically signed by: Antonino Jane M.D. 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 2. Possible enthesophyte avulsion fracture/injury as detailed above. 3. Degenerative changes most significant in the forefoot. 4. Atherosclerotic peripheral vascular disease. Electronically signed by: Harlan Tomas II, D.O. Narrative 11/07/2019 7:26 AM CDT EXAMINATION: XR FOOT RIGHT 3 OR MORE VIEWS DATE: 11/06/2019 7:50 PM HISTORY: Pain. COMPARISON: None. FINDINGS: There is a large enthesophyte arising from the posterior superior aspect of the calcaneus. Linear lucency traversing the enthesophyte may represent an avulsion injury in the acute clinical setting. Soft tissue swelling is seen near the Achilles insertion on the large enthesophyte. The calcaneus demonstrates a heterogeneous appearance, which is suggestive of osteomyelitis given associated soft tissue swelling and apparent edema/cellulitis in the subcutaneous soft tissues. Atherosclerotic peripheral vascular disease is demonstrated. Significant degenerative changes in the forefoot. Procedure Note Harlan Tomas II, - 11/07/2019 EXAMINATION: XR FOOT RIGHT 3 OR MORE VIEWS DATE: 11/06/2019 7:50 PM HISTORY: Pain. COMPARISON: None. FINDINGS: There is a large enthesophyte arising from the posterior superior aspect of the calcaneus. Linear lucency traversing the enthesophyte may represent an avulsion injury in the acute clinical setting. Soft tissue swelling is seen near the Achilles insertion on the large enthesophyte. The calcaneus demonstrates a heterogeneous appearance, which is suggestive of osteomyelitis given associated soft tissue swelling and apparent edema/cellulitis in the subcutaneous soft tissues. Atherosclerotic peripheral vascular disease is demonstrated. Significant degenerative changes in the forefoot. IMPRESSION: 1. 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 2. Possible enthesophyte avulsion fracture/injury as detailed above. 3. Degenerative changes most significant in the forefoot. 4. Atherosclerotic peripheral vascular disease. Electronically signed by: Harlan Tomas II, D.O. Sina Schilling MD IM XR PROCEDURES Final Re sult * XR Foot Left 3 or More Views (11/06/2019 8:21 PM CDT) Anatomical Region Laterality Modality Lower Extremities, Foot Left Computed Radiography 11/07/2019 6:50 AM CDT Impressions 11/07/2019 6:51 AM CDT No fracture or dislocation seen. Electronically signed by: Antonino Jane M.D. Narrative 11/07/2019 6:51 AM CDT EXAMINATION: XR FOOT LEFT 3 OR MORE VIEWS HISTORY: The patient is a 64-year-old female who presents with pain in the left foot. TECHNIQUE: 3 views of the left foot with portable technique. FINDINGS: No fracture or dislocation is seen. Bony structures are normally mineralized. There is marked arterial calcification. Procedure Note Antonino Jane MD - 11/07/2019 EXAMINATION: XR FOOT LEFT 3 OR MORE VIEWS HISTORY: The patient is a 64-year-old female who presents with pain in the left foot. TECHNIQUE: 3 views of the left foot with portable technique. FINDINGS: No fracture or dislocation is seen. Bony structures are normally mineralized. There is marked arterial calcification. IMPRESSION: No fracture or dislocation seen. Electronically signed by: Antonino Jane M.D. Sina Schilling MD [facility] XR PROCEDURES Final Re sult * eGFR (11/06/2019 7:06 PM CDT) [facility] eGFR 55 mL/min/1.7 3 m2 [facility] Comment: Interpretive Data Reference Interval Normal ?>/= 90 mL/min/1.73m2 Mildly decreased* ? 60 - 89 mL/min/1.73m2 Mildly to moderately decreased ?45 - 59 mL/min/1.73m2 Moderately to severely decreased ??30 - 44 mL/min/1.73m2 Severely decreased ?15 - 29 mL/min/1.73m2 Kidney Failure ?< 15 ??mL/min/1.73m2 *Relative to young adult level If -[place] multiply value by 1.16. Estimated glomerular filtration [...] 70. Current interpretive data was last reviewed 2015. Blood specimen (specimen) 11/06/2019 7:06 PM CDT 11/06/2019 7:12 PM CDT us Sina Schilling MD LAB BLOOD ORDERABLES Final Result Performing Organization Address City/State/[facility] Co de Phone Number [facility] [id number] Department [place] [address] * (ABNORMAL) Differential, auto (11/06/2019 7:06 PM CDT) Neutrophil abs 17.4(H) 1.7 - 6.5 K/cumm [facility] Imm gran abs 0.2(H) 0.0 - 0.1 K/cumm [facility] Lymphocyte abs 1.0 0.8 - 3.3 K/cumm [facility] Monocyte abs 0.6 0.2 - 0.8 K/cumm [facility] Eosinophil abs 0.1 0.0 - 0.5 K/cumm [facility] Basophil abs 0.1 0.0 - 0.1 K/cumm [facility] Neutrophil pct 90.1 % [facility] Comment: Interpretive Data Percent cell count reference ranges are not reported, since discordance with absolute values may lead to misinterpretation of CBC data. Current Interpretive Data was last revised on 2017. Imm gran pct 0.9 % [facility] Comment: Interpretive Data Percent cell count reference ranges are not reported, since discordance with absolute values may lead to misinterpretation of CBC data. Current Interpretive Data was last revised on 2017. Lymphocyte pct 5.1 % [facility] Comment: Interpretive Data Percent cell count reference ranges are not reported, since discordance with absolute values may lead to misinterpretation of CBC data. Current Interpretive Data was last revised on 2017. Monocyte pct 3.1 % [facility] Comment: Interpretive Data Percent cell count reference ranges are not reported, since discordance with absolute values may lead to misinterpretation of CBC data. Current Interpretive Data was last revised on 2017. Eosinophil pct 0.5 % [facility] Comment: Interpretive Data Percent cell count reference ranges are not reported, since discordance with absolute values may lead to misinterpretation of CBC data. Current Interpretive Data was last revised on 2017. Basophil pct 0.3 % [facility] Comment: Interpretive Data Percent cell count reference ranges are not reported, since discordance with absolute values may lead to misinterpretation of CBC data. Current Interpretive Data was last revised on 2017. Blood specimen (specimen) 11/06/2019 7:06 PM CDT 11/06/2019 7:12 PM CDT us Sina Schilling MD LAB BLOOD ORDERABLES Final Result [facility] [id number] Department [place] [address] * (ABNORMAL) Sepsis Lactate w/ Reflex (11/06/2019 7:06 PM CDT) Sepsis Lactate 2.3(H) 0.7 - 2.0 mmol/L [facility] Blood specimen (specimen) 11/06/2019 7:06 PM CDT 11/06/2019 7:18 PM CDT us Sina Schilling MD LAB BLOOD ORDERABLES Final Result [facility] [id number] Department [place] [address] * (ABNORMAL) Comprehensive metabolic panel (11/06/2019 7:06 PM CDT) Sodium 134(L) 135 - 145 mmol/L [facility] Potassium, pl 4.1 3.3 - 4.9 mmol/L [facility] Chloride 88(L) 97 - 110 mmol/L [facility] CO2 31 22 - 32 mmol/L [facility] Anion gap 15 2 - 15 mmol/L [facility] BUN 39(H) 8 - 25 mg/dL [facility] Creatinine 1.07 0.60 - 1.10 mg/dL [facility] Glucose 210(H) 70 - 199 mg/dL [facility] Comment: Interpretive Data Fasting glucose >/= 126 [...] 2017. Calcium 9.1 8.5 - 10.3 mg/dL [facility] Bilirubin, total 0.5 0.1 - 1.2 mg/dL [facility] Protein, pl 8.5 6.5 - 8.5 g/dL [facility] Albumin 3.1(L) 3.5 - 5.0 g/dL [facility] Alk phos 46 40 - 130 Units/L [facility] ALT 63(H) 7 - 45 Units/L [facility] AST 67(H) 10 - 45 Units/L [facility] Blood specimen (specimen) 11/06/2019 7:06 PM CDT 11/06/2019 7:12 PM CDT Sina Schilling MD LAB BLOOD ORDERABLES Final Result Performing Organization Address City/[facility]/ZIP Co de Phone Number [facility] [phone] [place] [address] * (ABNORMAL) CBC with auto differential (11/06/2019 7:06 PM CDT) WBC 19.3(H) 3.8 - 9.9 K/cumm [facility] Hgb 7.8(L) 11.9 - 15.5 g/dL [facility] Hct 24.1(L) 35.6 - 45.5 % [facility] Plt 483(H) 150 - 400 K/cumm [facility] MPV 9.6 9.1 - 12.3 fL [facility] RBC 2.64(L) 3.90 - 5.20 M/cumm [facility] MCV 91.3 81.3 - 96.4 fL [facility] MCH 29.5 27.1 - 33.3 pg [facility] MCHC 32.4 32.3 - 35.7 g/dL [facility] RDW CV 14.6 11.1 - 14.9 % [facility] RDW SD 49.1(H) 35.7 - 48.1 fL [facility] NRBC abs 0.00 0.00 - 0.01 K/cumm [facility] Blood specimen (specimen) 11/06/2019 7:06 PM CDT 11/06/2019 7:12 PM CDT Sina Schilling MD LAB BLOOD ORDERABLES Final Result [facility] [address] [place] [address] * (ABNORMAL) Blood culture Blood (11/06/2019 7:06 PM CDT) Direct Specimen Exam Stain: Gram Negative Bacilli Time to culture positivity (anaerobic media): 12.6 hours Time to culture positivity (aerobic media): 19.1 hours [facility] Comment:Testing performed by : [facility], [address] [place]., [address] Report Final Report: Proteus mirabilis (.) [facility] Comment:Testing performed by : [facility], [address] [place]., [address] Organism PROTEUS MIRABILIS [facility] Blood specimen (specimen) 11/06/2019 7:06 PM CDT 11/07/2019 12:18 AM CDT Narrative [facility] - 11/10/2019 7:11 AM CDT 1. ?Blood cultures are incubated for 4 days on a continuously monitored blood culture system. The first report of a negative culture is issued within 24 hours of receipt of the specimen in the laboratory. 2. ?Positive culture results are reported as soon as they are detected. 3. ?The most important factor for detection of microbes in the setting of bloodstream infection is the volume of blood submitted for culture. Failure to collect an optimal blood volume can result in false negative blood cultures. For pediatric patients, the recommended blood volume to collect is 1 mL of blood per year of patient age (up to 20 mL) per blood culture set. For adult patients, 20 mL of blood, divided equally between aerobic and anaerobic blood culture bottles, is recommended for each blood culture set. 4. ?For blood cultures with Gram-positive cocci, a rapid molecular test for organism identification may be performed using the [employer] Gram-Positive Blood Culture Assay. This assay detects microbial DNA in positive blood culture broth via hybridization of target DNA to capture oligonucleotides on a microarray. This assay has been cleared by the [place] Food and Drug Administration and its performance characteristics have been verified by the [facility]. 5. ?For questions about this culture, contact the Microbiology Laboratory at [phone]. Interpretive data was last revised on 2019. Organism Antibiotic Method Susceptibility Proteus mirabilis Ampicillin INTERPRETATION Susceptible Proteus mirabilis Cefazolin INTERPRETATION Intermediate Proteus mirabilis Gentamicin INTERPRETATION Susceptible Proteus mirabilis Ampicillin with Sulbactam INTERPRETA TION Susceptible Proteus mirabilis Trimethoprim with Sulfamethoxazole I NTERPRETATION Susceptible Proteus mirabilis Meropenem INTERPRETATION Susceptible Proteus mirabilis Cefepime INTERPRETATION Susceptible Proteus mirabilis Ciprofloxacin INTERPRETATION Susceptible Proteus mirabilis Ceftazidime INTERPRETATION Susceptible Proteus mirabilis Ceftriaxone INTERPRETATION Susceptible Proteus mirabilis Piperacillin/Tazobactam INTERPRETATI ON Susceptible Sina Schilling MD LAB MICROBIOLOGY - GENERAL ORDERABLES Final Result [facility] [id number] Department [place] [address] * (ABNORMAL) Blood culture Blood (11/06/2019 7:06 PM CDT) Direct Specimen Exam Stain: Gram Negative Bacilli Time to culture positivity (anaerobic media): 10.9 hours Time to culture positivity (aerobic media): 27.4 hours Notification of: Gram Negative Bacilli called to and read back by: Joleen Michel RN ([phone]) on 11/07/2019 11:56:21 by: LORENZO Poon Comment:Testing performed by : [facility], [address] [place] [address]., [id number] Report Final Report: Morganella morganii Proteus mirabilis For susceptibility results, refer to accession number [id number] on the blood culture from 11/06/2019 (.) [facility] Comment:Testing performed by : [facility], [address] [place] [address]., [id number] Organism MORGANELLA MORGANII [facility] Organism PROTEUS MIRABILIS [facility] Blood specimen (specimen) 11/06/2019 7:06 PM CDT 11/07/2019 12:18 AM CDT [facility] - 11/10/2019 7:12 AM CDT 1. ?Blood cultures are incubated for 4 days on a continuously monitored blood culture system. The first report of a negative culture is issued within 24 hours of receipt of the specimen in the laboratory. 2. ?Positive culture results are reported as soon as they are detected. 3. ?The most important factor for detection of microbes in the setting of bloodstream infection is the volume of blood submitted for culture. Failure to collect an optimal blood volume can result in false negative blood cultures. For pediatric patients, the recommended blood volume to collect is 1 mL of blood per year of patient age (up to 20 mL) per blood culture set. For adult patients, 20 mL of blood, divided equally between aerobic and anaerobic blood culture bottles, is recommended for each blood culture set. 4. ?For blood cultures with Gram-positive cocci, a rapid molecular test for organism identification may be performed using the [employer] Gram-Positive Blood Culture Assay. This assay detects microbial DNA in positive blood culture broth via hybridization of target DNA to capture oligonucleotides on a microarray. This assay has been cleared by the [place] Food and Drug Administration and its performance characteristics have been verified by the [facility]. 5. ?For questions about this culture, contact the Microbiology Laboratory at [phone]. Interpretive data was last revised on 2019. Organism Antibiotic Method Susceptibility Morganella morganii Ampicillin INTERPRETATION Resistant Morganella morganii Cefazolin INTERPRETATION Resistant Morganella morganii Gentamicin INTERPRETATION Susceptible Morganella morganii Ampicillin with Sulbactam INTERPRE TATION Resistant Morganella morganii Trimethoprim with Sulfamethoxazole INTERPRETATION Susceptible Morganella morganii Meropenem INTERPRETATION Susceptible Morganella morganii Cefepime INTERPRETATION Susceptible Morganella morganii Ciprofloxacin INTERPRETATION Resistant Morganella morganii Ceftazidime INTERPRETATION Susceptible Morganella morganii Ceftriaxone INTERPRETATION Susceptible Morganella morganii Piperacillin/Tazobactam INTERPRETA TION Susceptible us Sina Schilling MD LAB MICROBIOLOGY - GENERAL ORDERABLES Final Result [facility] [address] Department [place] [address] documented in this encounter Visit Diagnoses Diagnosis Sepsis (HCC)- Primary Gangrene (CMS/HCC) (HCC) Gangrene Sepsis (HCC) Acute hematogenous osteomyelitis of right foot (HCC) COVID-19 Moderate malnutrition (CMS/HCC) (HCC) Acute hematogenous osteomyelitis of right foot (HCC) PVD (peripheral vascular disease) (HCC) Unspecified peripheral vascular disease Anemia Unspecified anemia COVID-19 Hypothyroidism Unspecified hypothyroidism Hyperlipidemia Other and unspecified hyperlipidemia Pressure injury of sacral region, stage 4 (HCC) documented in this encounter Administered Medications Inactive Administered Medications - up to 3 most recent administrations Medication Order MAR Action Action Date Dose Rate Site acetaminophen (TYLENOL) tablet 650 mg 650 mg, oral, Every 6 hours PRN, 1st line for pain, Starting on 11/09/19 at 1841 Given 11/18/2019 11:37 PM CDT 650 mg Given 11/18/2019 10:43 AM CDT 650 mg Given 11/17/2019 9:04 PM CDT 650 mg amLODIPine (NORVASC) tablet 10 mg 10 mg, oral, Daily, First dose on [place] 11/07/19 at 0900 Given 11/20/2019 12:18 PM CDT 10 mg Given 11/19/2019 8:25 AM CDT 10 mg Given 11/18/2019 8:06 AM CDT 10 mg aspirin tablet 325 mg 325 mg, oral, Daily, First dose on Mon11/07/19 at 0900 Given 11/20/2019 10:44 AM CDT 325 mg Given 11/19/2019 8:25 AM CDT 325 mg Given 11/18/2019 8:06 AM CDT 325 mg atorvastatin (LIPITOR) tablet 40 mg 40 mg, oral, Nightly, First dose on Mon11/07/19 at 2100 Given 11/20/2019 8:11 PM CDT 40 mg Given 11/19/2019 8:43 PM CDT 40 mg Given 11/18/2019 7:39 PM CDT 40 mg cefTRIAXone (ROCEPHIN) 2,000 mg/20 mL in sterile water (premix) 2,000 mg 2,000 mg, intravenous, at 1,200 mL/hr, Administer over 1 Minutes, Every 24 hours scheduled, First dose on Mon11/12/19 at 1500, Indications: Blood Stream/Endovascular InfectionIndications:Blood Stream/Endovascular Infection Given 11/20/2019 10:43 AM CDT 2,000 mg 1200 mL/hr Given 11/19/2019 8:24 AM CDT 2,000 mg 1200 mL/hr Given 11/18/2019 8:06 AM CDT 2,000 mg 1200 mL/hr chlorthalidone tablet 25 mg 25 mg, oral, Daily, First dose on [place] 11/07/19 at 0900 Given 11/20/2019 12:18 PM CDT 25 mg Given 11/19/2019 8:25 AM CDT 25 mg Given 11/18/2019 8:06 AM CDT 25 mg cloNIDine (CATAPRES) tablet 0.1 mg 0.1 mg, oral, Every 6 hours PRN, high blood pressure, For systolic BP greater than 160, diastolic greater than 90, Starting on Mon11/10/19 at 1648 Given 11/10/2019 4:56 PM CDT 0.1 mg dextrose (D10W) 10% bolus 250 mL 250 mL, intravenous, at 1,000 mL/hr, Administer over 15 Minutes, Every 15 min PRN, blood glucose less than 70 mg/dL and UNABLE to swallow/take PO glucose/juice., Starting on Mon11/10/19 at 0936, After treatment for hypoglycemia, recheck BG followed by treatment every 15 minutes until the BG is greater than 100 mg/dL. Then check BG 1 hour post treatment. If BG is less than 100 mg/dL, repeat Q15 minute BG checks and treatment. Call MD for each episode of hypoglycemia., Indications: hypoglycemic disorderIndications:hypoglycem ic disorder dextrose oral liquid liquid 15 g 15 g, oral, Every 15 min PRN, low blood sugar, blood glucose less than 70 mg/dL, Starting on Mon11/10/19 at 0936, If patient is alert and able to [...] for each episode of hypoglycemia., Indications: hypoglycemic disorderIndications:hypoglycem ic disorder docusate sodium (COLACE) capsule 100 mg 100 mg, oral, 2 times daily PRN, constipation, Starting on Mon11/07/19 at 0050, Indications: constipationIndications:consti pation Given 11/15/2019 8:26 PM CDT 100 mg enoxaparin (LOVENOX) syringe 30 mg 30 mg, subcutaneous, Daily (for enoxaparin), First dose on Mon11/07/19 at 2100, Indications: VTE ProphylaxisIndications:VTE Prophylaxis Given 11/07/2019 10:38 PM CDT 30 mg Left Lower Abdomen enoxaparin (LOVENOX) syringe 40 mg 40 mg, subcutaneous, Daily (for enoxaparin), First dose (after last modification) on Mon11/08/19 at 2100, Per [facility] Dosing and Monitoring Policy Lovenox for DVT prevention was increased to 40mg for CrCl > 30 mL/min, Indications: VTE ProphylaxisIndications:VTE Prophylaxis Given 11/20/2019 8:11 PM CDT 40 mg Left Lower Abdomen Given 11/19/2019 8:43 PM CDT 40 mg Ri ght Lower Abdomen Given 11/18/2019 7:38 PM CDT 40 mg Le ft Upper Abdomen gabapentin (NEURONTIN) capsule 300 mg 300 mg, oral, 3 times daily, First dose on Mon11/07/19 at 0900 Given 11/20/2019 8:11 PM CDT 300 mg Given 11/20/2019 5:10 PM CDT 300 mg Given 11/20/2019 10:43 AM CDT 300 mg glucagon injection 1 mg 1 mg, intramuscular, Administer over 1 Minutes, Every 30 min PRN, low blood sugar, blood glucose less than 70 mg/dL AND no IV access AND unable to take PO glucose/jiuce., Starting on Mon11/10/19 at 0936, After Glucagon is administered, position patient on [...] MD for each episode of hypoglycemia., Indications: HypoglycemiaIndications:Hypogl ycemia hydrALAZINE (APRESOLINE) tablet 25 mg 25 mg, oral, Once, On Chari 11/07/19 at 0130, For 1 dose, Indications: hypertensionIndications:hypert ension Given 11/07/2019 2:00 AM CDT 25 mg insulin glargine (LANTUS) injection 12 Units 12 Units, subcutaneous, Every morning, First dose (after last modification) on Mon11/17/19 at 0900, Do not mix with other insulins Given 11/20/2019 10:45 AM CDT 12 Units Right Upper Arm Given 11/19/2019 8:25 AM CDT 12 Units Le ft Upper Abdomen Given 11/18/2019 8:07 AM CDT 12 Units Le ft Upper Abdomen insulin glargine (LANTUS) injection 15 Units 15 Units, subcutaneous, Every morning, First dose on [place] 11/07/19 at 0900, Do not mix with other insulins Given 11/16/2019 8:13 AM CDT 15 Units Left Upper Arm Given 11/15/2019 8:56 AM CDT 15 Units Ri ght Upper Arm Given 11/14/2019 9:52 AM CDT 15 Units Le ft Upper Arm insulin glargine (LANTUS) injection 20 Units 20 Units, subcutaneous, Every morning, First dose (after last modification) on Chari 11/21/19 at 0900, Do not mix with other insulins insulin lispro (HumaLOG, ADMELOG) injection 1-2 Units 1-2 Units, subcutaneous, Nightly, First dose on Chari 11/07/19 at 2100, Blood Sugar Low Dose PM - PO patients 200 or less No Insulin 201 - 250 1 unit 251 - 299 2 units Greater than 299 Call MD for hyperglycemia management instructions Do NOT hold for NPO status., Indications: Diabetes MellitusIndications:Diabetes Mellitus Given 11/09/2019 8:37 PM CDT 2 Units Left Lower Abdomen Given 11/08/2019 10:33 PM CDT 2 Units L eft Upper Arm Given 11/07/2019 10:36 PM CDT 2 Units L eft Upper Arm insulin lispro (HumaLOG, ADMELOG) injection 1-3 Units 1-3 Units, subcutaneous, 3 times daily with meals, First dose on Chari 11/07/19 at 0800, Blood Sugar Low Dose meal time - PO patients 175 or less No Insulin 176 - 200 1 unit 201 - 250 2 units 251 - 299 3 units Greater than 299 Call MD for hyperglycemia management instructions Do NOT hold for NPO status., Indications: Diabetes MellitusIndications:Diabetes Mellitus Given 11/09/2019 6:53 PM CDT 3 Units Right Lower Abdomen Given 11/09/2019 9:03 AM CDT 2 Units Ri ght Upper Arm Given 11/08/2019 5:39 PM CDT 3 Units Le ft Lower Abdomen insulin lispro (HumaLOG, ADMELOG) injection 1-3 Units 1-3 Units, subcutaneous, Nightly, First dose on [place] 11/10/19 at 2100, Blood Sugar Mid Dose PM - PO patients 175 or less No insulin 176 - 200 1 unit 201 - 250 2 units 251 - 299 3 units Greater than 299 Call MD for hyperglycemia management instructions Do NOT hold for NPO status., Indications: Diabetes MellitusIndications:Diabetes Mellitus Given 11/15/2019 8:27 PM CDT 2 Units Left Lower Abdomen Given 11/13/2019 9:29 PM CDT 2 Units Le ft Lower Abdomen Given 11/12/2019 9:04 PM CDT 3 Units Ri ght Lower Abdomen insulin lispro (HumaLOG, ADMELOG) injection 1-4 Units 1-4 Units, subcutaneous, Nightly, First dose on 11/09/19 at 2130, Blood Sugar High Dose PM - PO patients 139 or less No insulin 140 - 175 1 unit 176 - 200 2 units 201 - 250 3 units 251 - 299 4 units Greater than 299 Call MD for hyperglycemia management instructions Do NOT hold for NPO status., Indications: Diabetes MellitusIndications:Diabetes Mellitus Given 11/10/2019 2:21 AM CDT 4 Units Left Lower Abdomen Given 11/09/2019 8:50 PM CDT 8 Units Le ft Lower Abdomen insulin lispro (HumaLOG, ADMELOG) injection 1-4 Units 1-4 Units, subcutaneous, Every 24 hours, First dose on 11/10/19 at 0200, Blood Sugar High Dose 02:00 - PO patients 139 or less No insulin 140 - 175 1 unit 176 - 200 2 units 201 - 250 3 units 251 - 299 4 units Greater than 299 Call MD for hyperglycemia management instructions Do NOT hold for NPO status., Indications: Diabetes MellitusIndications:Diabetes Mellitus Given 11/10/2019 2:22 AM CDT 4 Units Left Lower Abdomen insulin lispro (HumaLOG, ADMELOG) injection 1-5 Units 1-5 Units, subcutaneous, 3 times daily with meals, First dose on 11/10/19 at 1200, Blood Sugar Mid Dose meal time - PO patients 139 or less No insulin 140 - 175 1 unit 176 - 200 2 unit 201 - 250 3 units 251 - 299 5 units Greater than 299 Call MD for hyperglycemia management instructions Do NOT hold for NPO status., Indications: Diabetes MellitusIndications:Diabetes Mellitus Given 11/20/2019 5:14 PM CDT 2 Units Left Upper Abdomen Given 11/20/2019 12:19 PM CDT 5 Units L eft Lower Abdomen Given 11/20/2019 6:56 AM CDT 1 Units Le ft Lower Abdomen insulin lispro (HumaLOG, ADMELOG) injection 10 Units 10 Units, subcutaneous, Once, On Mon11/14/19 at 1315, For 1 dose Given 11/14/2019 1:17 PM CDT 10 Units Left Upper Arm insulin lispro (HumaLOG, ADMELOG) injection 2-7 Units 2-7 Units, subcutaneous, 3 times daily with meals, First dose on Mon11/10/19 at 0800, Blood Sugar High Dose meal time - PO patients 139 or less No insulin 140 - 175 2 unit 176 - 200 3 unit 201 - 250 5 units 251 - 299 7 units Greater than 299 Call MD for hyperglycemia management instructions Do NOT hold for NPO status., Indications: Diabetes MellitusIndications:Diabetes Mellitus Given 11/10/2019 4:00 AM CDT 4 Units Left Lower Abdomen insulin lispro (HumaLOG, ADMELOG) injection 3 Units 3 Units, subcutaneous, Once, On Mon11/20/19 at 1400, For 1 dose Given 11/20/2019 1:39 PM CDT 3 Units Right Upper Abdomen insulin lispro (HumaLOG, ADMELOG) injection 5 Units 5 Units, subcutaneous, 3 times daily with meals, First dose on Mon11/20/19 at 1315 Given 11/20/2019 5:14 PM CDT 5 Units Left Upper Abdomen insulin lispro (HumaLOG, ADMELOG) injection 7 Units 7 Units, subcutaneous, Once, On Mon11/09/19 at 1300, For 1 dose Given 11/09/2019 12:23 PM CDT 7 Units Right Lower Abdomen ioversoL (OPTIRAY 350) syringe syringe 100 mL 100 mL, intravenous, Once in imaging, contrast, Starting on Mon11/08/19 at 1724, For 1 dose Given 11/08/2019 5:57 PM CDT 97 mL levothyroxine (SYNTHROID) tablet 50 mcg 50 mcg, oral, Daily (early AM), First dose on Mon11/07/19 at 0600, Administer on an empty stomach, preferably 30 minutes before breakfast. Take 4 hours apart from antacids, iron and calcium products. Given 11/20/2019 6:56 AM CDT 50 mcg Given 11/19/2019 6:09 AM CDT 50 mcg Given 11/18/2019 6:13 AM CDT 50 mcg metroNIDAZOLE (FLAGYL) tablet 500 mg 500 mg, oral, 3 times daily, First dose on Mon11/12/19 at 1600, Indications: Pneumonia, AspirationIndications:Pneumonia, Aspiration Given 11/20/2019 8:11 PM C DT 500 mg Given 11/20/2019 5:10 PM CDT 500 mg Given 11/20/2019 10:44 AM CDT 500 mg ondansetron (ZOFRAN) injection 4 mg 4 mg, intravenous, Administer over 2 Minutes, Every 6 hours PRN, nausea, vomiting, if not tolerating PO, Starting on Mon11/07/19 at 0050, Indications: Nausea and VomitingIndications:Nausea and Vomiting ondansetron ODT (ZOFRAN-ODT) disintegrating tablet 4 mg 4 mg, oral, Every 6 hours PRN, nausea, vomiting, Starting on Mon11/07/19 at 0050, Indications: Nausea and VomitingIndications:Nausea and Vomiting pantoprazole DR (PROTONIX) extended release tablet 40 mg 40 mg, oral, Daily, First dose on Mon11/07/19 at 0900, Do not crush, chew, cut, dissolve, open or otherwise manipulate tablet/capsule., Indications: Stress Ulcer ProphylaxisIndications:Stress Ulcer Prophylaxis Given 11/20/2019 10:43 AM CDT 40 mg Given 11/19/2019 8:25 AM CDT 40 mg Given 11/18/2019 8:06 AM CDT 40 mg piperacillin-tazobactam (ZOSYN) 3.375 g in sodium chloride 0.9% 100 mL IVPB 3.375 g, intravenous, at 200 mL/hr, Administer over 30 Minutes, Once, On Mon11/06/19 at 1855, For 1 dose, Mini-Bag Plus bag, Indications: PainIndications:Pain New Bag 11/06/2019 7:35 PM CDT 3.375 g 200 mL/hr piperacillin-tazobactam (ZOSYN) 3.375 g in sodium chloride 0.9% 100 mL IVPB 3.375 g, intravenous, at 200 mL/hr, Administer over 30 Minutes, Every 8 hours, First dose (after last modification) on Mon11/07/19 at 0200, Mini-Bag Plus bag, Indications: PainIndications:Pain New Bag 11/07/2019 6:04 PM CDT 3.375 g 200 mL/hr New Bag 11/07/2019 10:59 AM CDT 3.375 g 200 mL/hr New Bag 11/07/2019 3:31 AM CDT 3.375 g 200 mL/hr piperacillin-tazobactam (ZOSYN) 3.375 g in sodium chloride 0.9% 100 mL IVPB 3.375 g, intravenous, at 200 mL/hr, Administer over 30 Minutes, Every 6 hours scheduled, First dose (after last modification) on Mon11/08/19 at 0000, Mini-Bag Plus bag, Indications: PainIndications:Pain New Bag 11/12/2019 8:49 AM CDT 3.375 g 200 mL/hr New Bag 11/12/2019 2:24 AM CDT 3.375 g 200 mL/hr New Bag 11/11/2019 8:30 PM CDT 3.375 g 200 mL/hr polyethylene glycol (MIRALAX) packet 17 g 17 g, oral, Daily, First dose on Mon11/07/19 at 0900, Indications: constipationIndications:constipation Given 11/19/2019 8:25 AM CDT 17 g Given 11/18/2019 8:06 AM CDT 17 g Given 11/17/2019 8:30 AM CDT 17 g potassium chloride ER (KLOR-CON) extended release tablet 40 mEq 40 mEq, oral, Once, On 11/16/19 at 1130, For 1 dose, Do not crush, chew, cut, dissolve, open or otherwise manipulate tablet/capsule. Given 11/16/2019 11:55 AM CDT 40 mEq sodium chloride 0.9% 0.9% infusion - ADS Override Pull Starting on Mon11/08/19 at 0114, For 1 dose, Created by cabinet override New 11/08/2019 2:45 AM CDT 500 mL sodium chloride 0.9% bolus 1,000 mL 1,000 mL, intravenous, at 1,000 mL/hr, Administer over 1 Hours, Once, On Mon11/06/19 at 2109, For 1 dose New 11/06/2019 9:28 PM CDT 1,000 mL 1000 mL/hr sodium chloride 0.9% flush 0.5-20 mL 0.5-20 mL, intra-catheter, Every 8 hours scheduled, First dose on Mon11/07/19 at 0130, Flush volume based on line type and size. , Indications: FlushingIndications:Flushing Given 11/20/2019 5:11 PM CDT 10 mL Given 11/20/2019 6:58 AM CDT 10 mL Given 11/19/2019 10:10 PM CDT 10 mL sodium chloride 0.9% flush 5-10 mL 5-10 mL, intra-catheter, Every 8 hours scheduled, First dose on Mon11/19/19 at 1400, Flush volume based on line type, size, and protocol. Given 11/20/2019 6:58 AM CDT 10 mL Given 11/19/2019 10:10 PM CDT 10 mL sodium chloride 0.9% flush 5-10 mL 5-10 mL, intra-catheter, As needed, line care, with each use, Starting on Mon11/19/19 at 1102, Flush volume based on line type, size, and protocol. sodium chloride 0.9% flush 5-10 mL 5-10 mL, intra-catheter, Every 12 hours scheduled, First dose on Mon11/19/19 at 1200, Flush volume based on line type, size, and protocol. Given 11/20/2019 8:19 PM CDT 10 mL Given 11/20/2019 10:46 AM CDT 10 mL Given 11/19/2019 8:46 PM CDT 10 mL sodium chloride 0.9% flush 5-20 mL 5-20 mL, intra-catheter, As needed, line care, with each use, Starting on Mon11/19/19 at 1121, Flush volume based on line type, size, and protocol. vancomycin (VANCOCIN) 1,750 mg in sodium chloride 0.9% 500 mL IVPB 1,750 mg, intravenous, at 258.8 mL/hr, Administer over 120 Minutes, Once, On Chari 11/07/19 at 0130, For 1 dose, Indications: Skin/Soft Tissue InfectionIndications:Skin/Soft Tissue Infection New Bag 11/07/2019 3:26 AM CDT 1,750 mg 258.8 mL/hr vancomycin 1,000 mg/200 mL in dextrose 5% (premix) 1,000 mg 1,000 mg, intravenous, Administer over 60 Minutes, Every 24 hours, First dose on Mon11/08/19 at 0600, Indications: Skin/Soft Tissue InfectionIndications:Skin/Soft Tissue Infection New Bag 11/12/2019 6:21 AM CDT 1,000 mg New Bag 11/11/2019 6:56 AM CDT 1,000 mg New Bag 11/10/2019 5:39 AM CDT 1,000 mg documented in this encounter Discontinued Medications Medication Sig Discontinue Reason Start Date End Da te insulin glargine (LANTUS U-100 INSULIN) 100 unit/mL injection 03/21/2017Lantus, inj 100/ml Vial (ml)sub-Qas directedCurrent Medication Stop Taking at Discharge 03/21/2017 11/20/2019 atorvastatin (LIPITOR) 80 mg tablet Stop Taking at Discharge 08/08/2017 11/20/2019 lisinopril (PRINIVIL,ZESTRIL) 20 mg tablet Stop Taking at Discharge 08/09/2017 11/20/2019 donepezil (ARICEPT) 5 mg tabletIndications:andrew chanel Take 1 tablet (5 mg total) by mouth nightly. Stop Taking at Discharge 10/30/2017 11/20/2019 metFORMIN (GLUCOPHAGE) 500 mg tablet Take 500 mg by mouth 2 (two) times a day with meals. Stop Taking at Discharge 11/20/2019 rOPINIRole (REQUIP) 2 mg tablet Take 1 tablet (2 mg total) by mouth nightly. Stop Taking at Discharge 05/15/2018 11/20/2019 potassium chloride ER (KLOR-CON,K-DUR) 10 mEq CR tablet Take 2 tablet/capsule (20 mEq total) by mouth daily Stop Taking at Discharge 06/12/2018 11/20/2019 pregabalin (LYRICA) 50 mg capsuleIndications: Polyneuropathy associated with underlying disease (HCC) Take 1 capsule (50 mg total) by mouth 2 (two) times a day Stop Taking at Discharge 06/21/2018 11/20/2019 furosemide (LASIX) 40 mg tablet Take 1 tablet (40 mg total) by mouth daily Stop Taking at Discharge 09/10/2018 11/20/2019 documented as of this encounter Active and Recently Administered Medications Times are shown in CDT. Scheduled Medication Order 11/18/2019 11/19/2019 11/20/2019 amLODIPine (NORVASC) tablet 10 mg 10 mg, oral, Daily, First dose on Chari 11/07/19 at 0900 0806 (Given - Provider: Rossana Santiago LPN) 0825 (Given - Provider: Brenda Arita RN) 1218 (Given - Provider: Brenda Arita RN) aspirin tablet 325 mg 325 mg, oral, Daily, First dose on Mon11/07/19 at 0900 0806 (Given - Provider: Rossana Santiago LPN) 0825 (Given - Provider: Brenda Arita RN) 1044 (Given - Provider: Brenda Arita RN) atorvastatin (LIPITOR) tablet 40 mg 40 mg, oral, Nightly, First dose on Mon11/07/19 at 2100 1938 (Given - Provider: Reza Barahona RN) 2042 (Given - Provider: Edie Hooks LPN) 2010 (Given - Provider: Edie Hooks LPN) cefTRIAXone (ROCEPHIN) 2,000 mg/20 mL in sterile water (premix) 2,000 mg 2,000 mg, intravenous, at 1,200 mL/hr, Administer over 1 Minutes, Every 24 hours scheduled, First dose on Mon11/12/19 at 1500, Indications: Blood Stream/Endovascular Infection 08 (Given - Provider: Pamella Lane RN) 0824 (Given - Provider: Brenda Arita RN) 1043 (Given - Provider: Brenda Arita RN) chlorthalidone tablet 25 mg 25 mg, oral, Daily, First dose on Mon11/07/19 at 0900 0806 (Given - Provider: Rossana Santiago LPN) 0825 (Given - Provider: Brenda Arita RN) 1218 (Given - Provider: Brenda Arita RN) enoxaparin (LOVENOX) syringe 40 mg 40 mg, subcutaneous, Daily (for enoxaparin), First dose (after last modification) on Mon11/08/19 at 2100, Per [facility] Dosing and Monitoring Policy Lovenox for DVT prevention was increased to 40mg for CrCl > 30 mL/min, Indications: VTE Prophylaxis 1937 (Given - Provider: Reza Barahona RN) 2042 (Given - Provider: Edie Hooks LPN) 2010 (Given - Provider: Edie Hooks LPN) gabapentin (NEURONTIN) capsule 300 mg 300 mg, oral, 3 times daily, First dose on Chari 11/07/19 at 0900 0806 (Given - Provider: Rossana Santiago LPN)1600 (Given - Provider: Rossana Santiago LPN)1939 (Given - Provider: Reza Barahona RN) 0825 (Given - Provider: Brenda Arita RN)1638 (Given - Provider: Brenda Arita RN)204 (Given - Provider: Edie Hooks LPN) 104 (Given - Provider: Brenda Arita RN)171 (Given - Provider: Brenda Arita RN)2010 (Given - Provider: Edie Hooks LPN) insulin glargine (LANTUS) injection 12 Units (CANCELED) 12 Units, subcutaneous, Every morning, First dose (after last modification) on 11/17/19 at 0900, Do not mix with other insulins 0807 (Given - Provider: Rossana Santiago LPN) 0825 (Given - Provider: Brenda Arita RN) 1045 (Given - Provider: Brenda Arita RN) insulin glargine (LANTUS) injection 20 Units 20 Units, subcutaneous, Every morning, First dose (after last modification) on Chari 11/21/19 at 0900, Do not mix with other insulins insulin lispro (HumaLOG, ADMELOG) injection 1-5 Units 1-5 Units, subcutaneous, 3 times daily with meals, First dose on 11/10/19 at 1200, Blood Sugar Mid Dose meal time - PO patients 139 or less No insulin 140 - 175 1 unit 176 - 200 2 unit 201 - 250 3 units 251 - 299 5 units Greater than 299 Call MD for hyperglycemia management instructions Do NOT hold for NPO status., Indications: Diabetes Mellitus 0621 (Given - Provider: Reza Barahona RN)1200 (Given - Provider: Rossana Santiago LPN)1701 (Given - Provider: Rossana Santiago LPN) 0616 (Given - Provider: Reza Barahona RN)1300 (Given - Provider: Brenda Arita RN)1645 (Given - Provider: Brenda Arita RN) 0656 (Given - Provider: Edie Hooks LPN)1219 (Given - Provider: Brenda Arita RN)1714 (Given - Provider: Brenda Arita RN) insulin lispro (HumaLOG, ADMELOG) injection 3 Units (COMPLETED) 3 Units, subcutaneous, Once, On Mon11/20/19 at 1400, For 1 dose 1339 (Given - Provider: Brenda Arita RN) insulin lispro (HumaLOG, ADMELOG) injection 5 Units 5 Units, subcutaneous, 3 times daily with meals, First dose on Mon11/20/19 at 1315 1328 (Not Given - Provider: Brenda Arita RN - Reason: Other - Comment: to be started with dinner per md)1714 (Given - Provider: Brenda Arita RN) levothyroxine (SYNTHROID) tablet 50 mcg 50 mcg, oral, Daily (early AM), First dose on Mon11/07/19 at 0600, Administer on an empty stomach, preferably 30 minutes before breakfast. Take 4 hours apart from antacids, iron and calcium products. 0613 (Given - Provider: Reza Barahona RN) 0609 (Given - Provider: Reza Barahona RN) 0656 (Given - Provider: Edie Hooks LPN) lidocaine PF (XYLOCAINE) 10 mg/mL (1 %) preservative free injection 10-20 mg 10-20 mg (1-2 mL), subcutaneous, Once, On Mon11/19/19 at 1200, For 1 dose, Administer to insertion site prior to procedure of local anesthesia. Administer volume needed to infiltrate site., Indications: Administration of Local Anesthesia 1200 (Due) metroNIDAZOLE (FLAGYL) tablet 500 mg 500 mg, oral, 3 times daily, First dose on Mon11/12/19 at 1600, Indications: Pneumonia, Aspiration 0806 (Given - Provider: Rossana Santiago LPN)1601 (Given - Provider: Rossana Santiago LPN)1939 (Given - Provider: Reza Barahona RN) 0825 (Given - Provider: Brenda Arita RN)1638 (Given - Provider: Brenda Arita RN)204 (Given - Provider: Edie Hooks LPN) 104 (Given - Provider: Brenda Arita RN)171 (Given - Provider: Brenda Arita RN)2010 (Given - Provider: Edie Hooks LPN) pantoprazole DR (PROTONIX) extended release tablet 40 mg 40 mg, oral, Daily, First dose on Mon11/07/19 at 0900, Do not crush, chew, cut, dissolve, open or otherwise manipulate tablet/capsule., Indications: Stress Ulcer Prophylaxis 0806 (Given - Provider: Rossana Santiago LPN) 0825 (Given - Provider: Brenda Arita RN) 1043 (Given - Provider: Brenda Arita RN) polyethylene glycol (MIRALAX) packet 17 g 17 g, oral, Daily, First dose on Mon11/07/19 at 0900, Indications: constipation 0806 (Given - Provider: Rossana Santiago LPN) 0825 (Given - Provider: Brenda Arita RN) 1046 (Not Given - Provider: Brenda Arita RN - Reason: Other - Comment: pt had bm previous shift) sodium chloride 0.9% flush 0.5-20 mL 0.5-20 mL, intra-catheter, Every 8 hours scheduled, First dose on Chari 11/07/19 at 0130, Flush volume based on line type and size. , Indications: Flushing 0613 (Given - Provider: Reza Barahona RN)1313 (Given - Provider: Rossana Santiago LPN)2003 (Given - Provider: Reza Barahona RN) 0609 (Given - Provider: Reza Barahona RN)0827 (Given - Provider: Brenda Arita RN)1530 (Not Given - Provider: Brenda Arita RN - Reason: Other - Comment: given recently)2210 (Given - Provider: Edie Hooks LPN) 0658 (Given - Provider: Edie Hooks LPN)1711 (Given - Provider: Brenda Arita RN) sodium chloride 0.9% flush 5-10 mL 5-10 mL, intra-catheter, Every 8 hours scheduled, First dose on Mon11/19/19 at 1400, Flush volume based on line type, size, and protocol. 1531 (Not Given - Provider: Brenda Arita RN - Reason: Other - Comment: recently given)2210 (Given - Provider: Edie Hooks LPN) 0658 (Given - Provider: Edie Hooks LPN)1856 (Not Given - Provider: Brenda Arita RN - Reason: Other - Comment: recently given) sodium chloride 0.9% flush 5-10 mL 5-10 mL, intra-catheter, Every 12 hours scheduled, First dose on Mon11/19/19 at 1200, Flush volume based on line type, size, and protocol. 1305 (Given - Provider: Brenda Arita RN)2045 (Given - Provider: Edie Hooks LPN) 1046 (Given - Provider: Brenda Arita RN)2019 (Given - Provider: Edie Hooks LPN) PRN Medication Order 11/18/2019 11/19/2019 11/20/2019 acetaminophen (TYLENOL) tablet 650 mg 650 mg, oral, Every 6 hours PRN, 1st line for pain, Starting on 11/09/19 at 1841 1043 (Given - Provider: Rossana Santiago LPN)2337 (Given - Provider: Reza Barahona RN) cloNIDine (CATAPRES) tablet 0.1 mg 0.1 mg, oral, Every 6 hours PRN, high blood pressure, For systolic BP greater than 160, diastolic greater than 90, Starting on 11/10/19 at 1648 dextrose (D10W) 10% bolus 250 mL(Linked Group 1) 250 mL, intravenous, at 1,000 mL/hr, Administer over 15 Minutes, Every 15 min PRN, blood glucose less than 70 mg/dL and UNABLE to swallow/take PO glucose/juice., Starting on [place] 11/10/19 at 0936, After treatment for hypoglycemia, recheck BG followed by treatment every 15 minutes until the BG is greater than 100 mg/dL. Then check BG 1 hour post treatment. If BG is less than 100 mg/dL, repeat Q15 minute BG checks and treatment. Call MD for each episode of hypoglycemia., Indications: hypoglycemic disorder dextrose oral liquid liquid 15 g(Linked Group 1) 15 g, oral, Every 15 min PRN, low blood sugar, blood glucose less than 70 mg/dL, Starting on [place] 11/10/19 at 0936, If patient is alert and able to [...] each episode of hypoglycemia., Indications: hypoglycemic disorder docusate sodium (COLACE) capsule 100 mg 100 mg, oral, 2 times daily PRN, constipation, Starting on Chari 11/07/19 at 0050, Indications: constipation glucagon injection 1 mg 1 mg, intramuscular, Administer over 1 Minutes, Every 30 min PRN, low blood sugar, blood glucose less than 70 mg/dL AND no IV access AND unable to take PO glucose/jiuce., Starting on [place] 11/10/19 at 0936, After Glucagon is administered, position patient on [...] MD for each episode of hypoglycemia., Indications: Hypoglycemia ondansetron (ZOFRAN) injection 4 mg(Linked Group 2) 4 mg, intravenous, Administer over 2 Minutes, Every 6 hours PRN, nausea, vomiting, if not tolerating PO, Starting on Chari 11/07/19 at 0050, Indications: Nausea and Vomiting ondansetron ODT (ZOFRAN-ODT) disintegrating tablet 4 mg(Linked Group 2) 4 mg, oral, Every 6 hours PRN, nausea, vomiting, Starting on Mon11/07/19 at 0050, Indications: Nausea and Vomiting sodium chloride 0.9% flush 0.5-20 mL 0.5-20 mL, intra-catheter, As needed, line care, Starting on Mon11/07/19 at 0050, Flush volume based on line type and size. Flush before and after each use. , Indications: Flushing sodium chloride 0.9% flush 5-10 mL 5-10 mL, intra-catheter, As needed, line care, with each use, Starting on Mon11/19/19 at 1102, Flush volume based on line type, size, and protocol. sodium chloride 0.9% flush 5-20 mL 5-20 mL, intra-catheter, As needed, line care, with each use, Starting on Mon11/19/19 at 1121, Flush volume based on line type, size, and protocol. Linked Groups Order Group 1: dextrose oral liquid liquid 15 gJump to med 15 g, oral, Every 15 min PRN, low blood sugar, blood glucose less than 70 mg/dL, Starting on Mon11/10/19 at 0936, If patient is alert and able to [...] each episode of hypoglycemia., Indications: hypoglycemic disorder Or dextrose (D10W) 10% bolus 250 mLJump to med 250 mL, intravenous, at 1,000 mL/hr, Administer over 15 Minutes, Every 15 min PRN, blood glucose less than 70 mg/dL and UNABLE to swallow/take PO glucose/juice., Starting on Mon11/10/19 at 0936, After treatment for hypoglycemia, recheck BG followed [...] 6 hours PRN, nausea, vomiting, Starting on Chari 11/07/19 at 0050, Indications: Nausea and Vomiting Or ondansetron (ZOFRAN) injection 4 mgJump to med 4 mg, intravenous, Administer over 2 Minutes, Every 6 hours PRN, nausea, vomiting, if not tolerating PO, Starting on Chari 11/07/19 at 0050, Indications: Nausea and Vomiting documented in this encounter Orders Medications Ordered That Jesus ht Not Have Been Administered Count Last Ordered Date First Ordered Date insulin glargine (LANTUS) in jection 20 Units 1 11/20/2019 lidocaine PF (XYLOCAINE) 10 mg/mL (1 %) preservative free injection 10-20 mg 1 11/19/2019 sodium chloride 0.9% flush 5-10 mL 1 2019 sodium chloride 0.9% flush 5-20 mL 1 2019 dextrose (D10W) 10% bolus 250 mL 2 11/10/19 20 11/07/2019 dextrose oral liquid liquid 15 g 2 11/10/19 20 11/07/2019 glucagon injection 1 mg 2 11/10/201910/12 docusate sodium (COLACE) capsule 100 mg 1 0 11/07/2019 labetaloL (NORMODYNE,TRANDAT E) injection 20 mg 1 11/07/2019 ondansetron (ZOFRAN) injection 4 mg 2 11/06 ondansetron ODT (ZOFRAN-ODT) disintegrating tablet 4 mg 1 11/07/2019 piperacillin-tazobactam (ZOS YN) 3.375 g in sodium chloride 0.9% 100 mL IVPB 1 11/07/2019 rOPINIRole (REQUIP) tablet 2 mg 1 0 sodium chloride 0.9% flush 0.5-20 mL 1 10/12 sodium chloride 0.9% IVPB 0-250 mL 1 2019 Lab Orders Without Results Count Last Ordered D ate First Ordered Date POCT GLUCOSE DEVICE 28 11/19/2019 11/07/19 20 General Supply Count Last Ordered Date First Or dered Date COVIDIEN 700 SCD 1 11/11/2019 ALARIS 8015 BRAIN 1 11/07/2019 ALARIS IV PUMP ARM 1 11/07/2019 Nursing Count Last Ordered Date First Orde red Date PLACE SEQUENTIAL COMPRESSION DEVICE 1 11/06 WEIGH PATIENT 1 11/07/2019 INSERT KAPLAN CATHETER 1 11/06/2019 Consult Count Last Ordered Date First Orde red Date IP CONSULT TO UROLOGY 1 11/10/2019 IP CONSULT TO NUTRITION SERVICES 1 11/07/19 20 IP CONSULT TO SOCIAL WORK 1 11/07/2019 Isolation Count Last Ordered Date First Orde red Date INITIATE CONTACT ISOLATION 1 11/10/2019 INITIATE DROPLET ISOLATION 1 11/10/2019 CORE MEASURES Count Last Ordered Date First Ord ered Date REASON FOR NO VTE PROPHYLAXIS AT ADMISSION 1 11/07/2019 ADT Patient Update Count Last Ordered Date Firs t Ordered Date ED IP DECISION TO ADMIT 1 11/06/2019 documented in this encounter Additional Health Concerns 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 07/08/2019 10/28/2020 5:00 AM C DT COVID19 11/09/2019 11/30/2019 12/26/2019 3:05 AM CDT documented as of this encounter Care Teams Audiovisual Technician Relationship Specialty Start Date End Date Zeke Puente MD [address] [place] [address] PCP - General 12/02/18 Damon Swanson DO [address] [place] [id number] Medical Oncologist/Sand Mixer Operator Hematology and Oncology 10/25/17 Karl Smith Jr., MD [address] [place] [address] Surgeon General Surgery 11/07/19 documented as of this encounter
--- OUTSIDE RECORDS SUMMARY | 2024-02-26 21:38 | XMS_ITS | Encounter Summary ---
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 Gender Identity Not on file Sexual Orientation Not on file documented as of this encounter Medications at Time of Discharge cefTRIAXone (ROCEPHIN)Indica tions:Blood Stream/Endovascu lar Infection Infuse 20 mL (2,000 mg total) into a venous catheter daily for 27 days 540 mL 0 12/18/19 20 metroNIDAZOLE (FLAGYL) 500 mg tabletIndication s:Pneumonia, Aspiration Take 1 tablet (500 mg total) by mouth 3 (three) times a day for 28 days 84 tablet 0 12/18/19 20 amLODIPine (NORVASC) 10 mg tablet 0 8 06/17/19 21 aspirin 325 mg tablet Take 1 tablet (325 mg total) by mouth daily 30 tablet 1 0 06/17/19 21 atorvastatin (LIPITOR) 40 mg tablet Take 1 tablet (40 mg total) by mouth nightly 30 tablet 1 0 06/17/19 21 atorvastatin (LIPITOR) 80 mg tablet 0 8 11/20/19 20 chlorthalidone 25 mg tablet Take 1 tablet (25 mg total) by mouth daily 30 tablet 1 0 06/17/19 21 donepezil (ARICEPT) 5 mg tabletIndication s:memory Take 1 tablet (5 mg total) by mouth nightly. 30 tablet 3 8 11/20/19 20 furosemide (LASIX) 40 mg tablet Take 1 tablet (40 mg total) by mouth daily 30 tablet 2 9 11/20/19 20 gabapentin (NEURONTIN) 300 mg capsule Take 1 capsule (300 mg total) by mouth 3 (three) times a day 90 capsule 1 0 06/17/19 21 insulin glargine (LANTUS U-100 INSULIN) 100 unit/mL injection 03/21/2017Lantus, inj 100/ml Vial (ml)sub-Qas directedCurrent Medication 8 11/20/19 20 insulin glargine (Lantus U-100 Insulin) 100 unit/mL injection Inject 20 Units under the skin daily 10 mL 1 0 06/17/19 21 insulin lispro (HumaLOG, ADMELOG) 100 unit/mL injectionIndicat ions:Diabetes Mellitus Inject 1-5 Units under the skin 3 (three) times a day with meals 10 mL 1 0 06/17/19 21 insulin lispro (HumaLOG, ADMELOG) 100 unit/mL injection Inject 5 Units under the skin 3 (three) times a day with meals 10 mL 1 0 06/17/19 21 levothyroxine (SYNTHROID) 50 mcg tablet Take 1 tablet (50 mcg total) by mouth barge loader before breakfast 30 tablet 1 0 06/17/19 21 lisinopril (PRINIVIL,ZESTRI L) 20 mg tablet 0 8 11/20/19 20 metFORMIN (GLUCOPHAGE) 500 mg tablet Take 500 mg by mouth 2 (two) times a day with meals. 11/20/[address] (PROTONIX) 40 mg EC tabletIndication s:Stress Ulcer Prophylaxis Take 1 tablet (40 mg total) by mouth daily 30 tablet 1 0 06/17/19 21 potassium chloride ER (KLOR-CON,K-DUR) 10 mEq CR tablet Take 2 tablet/capsule (20 mEq total) by mouth daily 60 tablet/capsul e 2 9 11/20/19 20 pregabalin (LYRICA) 50 mg capsuleIndicatio ns:Polyneuropath y associated with underlying disease (HCC) Take 1 capsule (50 mg total) by mouth 2 (two) times a day 84 capsule 9 11/20/19 20 rOPINIRole (REQUIP) 2 mg tablet Take 1 tablet (2 mg total) by mouth nightly. 30 tablet 1 9 11/20/19 20 documented as of this encounter Discharge Disposition Disposition Code Departure Means Destination Discharge to home or self care documented in this encounter Plan of Treatment Not on file documented as of this encounter Procedures Procedure Name Priority Date/Time Associated Diagnosis Comments XR ABDOMEN AP 1 VIEW ED 11/06/2019 11:00 PM CDT documented in this encounter Results * XR Abdomen Ap 1 Vw (11/06/2019 11:00 PM CDT) Anatomical Region Laterality Modality Body, Abdomen N/A Computed Radiogr aphy 11/07/2019 6:51 AM CDT Impressions 11/07/2019 6:51 AM CDT Normal gas pattern. Electronically signed by: Keara Campa 11/07/2019 6:51 AM CDT EXAMINATION: XR ABDOMEN AP 1 VIEW HISTORY: The patient is a 64-year-old female who presents with abdominal distention. TECHNIQUE: AP portable supine view of the abdomen. FINDINGS: Normal intestinal gas pattern. No dilated small or large bowel loops. [place] and clips are seen overlying the lower abdomen and pelvis from prior surgery. Procedure Note Antonino Jane MD - 11/07/2019 EXAMINATION: XR ABDOMEN AP 1 VIEW HISTORY: The patient is a 64-year-old female who presents with abdominal distention. TECHNIQUE: AP portable supine view of the abdomen. FINDINGS: Normal intestinal gas pattern. No dilated small or large bowel loops. [place] and clips are seen overlying the lower abdomen and pelvis from prior surgery. IMPRESSION: Normal gas pattern. Electronically signed by: Antonino Jane M.D. Zack Johnson HAND CLIPPER IMG XR PROCEDURES Final Resu lt documented in this encounter Visit Diagnoses Not on filedocumented in this encounter Care Teams Bobbin Doffer Relationship Specialty Start Date End Date Zeke Puente MD [address] [place] [address] PCP - General 12/02/18 Damon Swanson DO [address] [place] [address] Medical Oncologist/Youth Minister Hematology and Oncology 10/25/17 documented as of this encounter
--- OUTSIDE RECORDS SUMMARY | 2024-02-26 21:38 | XMS_ITS | Encounter Summary ---
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 Gender Identity Not on file Sexual Orientation Not on file documented as of this encounter Last Filed Vital Signs Vital Sign Reading Time Taken Comments Blood Pressure 214/108 12/02/2018 2:52 PM CDT Pulse 89 12/02/2018 2:52 PM CDT Temperature 37.1 ??C (98.7 ??F) 12/02/2018 2:52 PM CD T Respiratory Rate - - Oxygen Saturation 100% 12/02/2018 2:52 PM CDT Inhaled Oxygen Concentration - - Weight 90.7 kg (200 lb) 12/02/2018 2:52 PM CDT Height 157.5 cm (5' 2 ) 12/02/2018 2:52 PM CDT Body Mass Index 36.58 12/02/2018 2:52 PM CDT documented in this [...] Procedure Name Priority Date/Time Associated Diagnosis Comments BETA-HYDROXYBUTYRATE Routine 12/02/2018 3:06 PM CDT CBC WITH AUTO DIFFERENTIAL Routine 12/02/2018 3:06 PM CDT COMPREHENSIVE METABOLIC PANEL Routine 12/02/2018 3:06 PM CDT documented in this encounter Results * Beta-hydroxybutyrate (12/02/2018 3:06 PM CDT) B-Hydroxybutyr ate 0.1 0.0 - 0.4 mmol/L [facility] 12/02/2018 3:06 PM CDT 12/02/2018 3:11 PM CDT Narrative Resulting Agency Comment ER us Brent Ruby DO LAB BLOOD ORDERABLES Final Resu lt [id number] [place] [address], [facility] [phone] * (ABNORMAL) Comprehensive metabolic panel (12/02/2018 3:06 PM CDT) Sodium 133(L) 135 - 145 mmol/L [facility] Potassium 4.0 3.3 - 5.1 mmol/L [facility] Chloride 90(L) 96 - 108 mmol/L [facility] Carbon Dioxide 30 22 - 32 mmol/L [facility] Anion Gap 13 7 - 16 [facility] Glucose 458(HH) 70 - 100 mg/dL [facility] Comment: CRITICAL VALUE CALLED and REPEATED. at:1537 12/02/18 by:Valeriy Hyman to: BRENT [id number] BUN 25 8 - 25 mg/dL [facility] Creatinine 0.9 0.5 - 1.1 mg/dL [facility] Comment: NOTE: Estimated GFR (Cockroft-Gault) will NOT be calculated unless patient Height and Weight were entered. Also, Kidney Disease Stage (GFR) and Estimated GFR (Cockroft-Gault) will NOT be calculated if Creatinine result is <0.2. Kidney Disease Stage 81 mL/MIN [facility] Comment: NOTE; ??The GFR is an estimated [...] mL/min ? Kidney failure or on dialysis Est GFR (Cockcroft-G) 67 ml/MIN [facility] Comment: Estimated GFR(Cockroft-Gault)is used to calculate patient medication dosage Calcium 9.4 8.6 - 10.3 mg/dL [facility] Total Protein 8.0 6.4 - 8.3 g/dL [facility] Albumin 4.1 3.5 - 5.0 g/dL [facility] Globulin 3.9(H) 2.3 - 3.5 gm/dL [facility] Albumin/Globulin Ratio 1.1 1.1 - 1.8 [facility] Total Bilirubin 0.7 0.0 - 1.2 mg/dL [facility] AST 17 0 - 32 U/L [facility] ALT 12 0 - 33 U/L [facility] Alkaline Phosphatase 59 35 - 104 U/L [facility] 12/02/2018 3:06 PM CDT 12/02/2018 3:11 PM CDT Narrative Resulting Agency Comment ER us Brent Ruby DO LAB BLOOD ORDERABLES Edited Res ult - Final [facility] [address] [place] [address], [facility] [phone] * (ABNORMAL) CBC with auto differential (12/02/2018 3:06 PM CDT) WBC 5.7 3.8 - 9.9 X10 3/ul [facility] RBC 3.66(L) 3.90 - 5.20 x10 6/ul [facility] Hemoglobin 11.0(L) 11.9 - 15.5 g/dL [facility] Hct 32.7(L) 35.6 - 45.5 % [facility] MCV 89.3 81.3 - 96.[address] [facility] MCH 30.1 27.1 - 33.[address] [facility] MCHC 33.6 32.3 - 35.7 g/dl [facility] RDW 13.7 11.1 - 14.9 % [facility] Plt Count 261 150 - 400 x10 3/ul [facility] MPV 9.8 9.1 - 12.[address] [facility] Neut % 72.0 % [facility] Immature Gran % 0.4 % [facility] Lymph % 20.5 % [facility] [place] % 5.8 % [facility] Eos % 0.9 % [facility] AUTO BASO % 0.4 % [facility] NEUTROPHIL ABS # 4.1 1.7 - 6.5 x10 3/ul [facility] Immature Gran # 0.0 0.0 - 0.1 x10 3/ul [facility] Absolute Lymphs (auto) 1.2 0.8 - 3.3 x10 3/ul [facility] Absolute Monos (auto) 0.3 0.2 - 0.8 x10 3/ul [facility] Absolute Eos (auto) 0.1 0.0 - 0.5 x10 3/ul [facility] BASOPHIL ABS # 0.0 0.0 - 0.1 x10 3/ul [facility] Nucleat RBC Rel Count 0.0 #/100WBC [facility] NRBC abs 0.00 0.00 - 0.01 x10 3/ul [facility] Absolute Neutrophils 4,100 200 - 8,000 /ul [facility] 12/02/2018 3:06 PM CDT 12/02/2018 3:11 PM CDT Narrative Resulting Agency Comment ER us Alana Card TINNING EQUIPMENT TENDER LAB BLOOD ORDERABLES Final Resu lt [facility] [address] [place] [address], [facility] [phone] documented in this encounter Visit Diagnoses Not on filedocumented in this encounter Care Teams Key Person Relationship Specialty Start Date End Date Zeke Puente MD [address] [place] [address] PCP - General 12/02/18 Damon Swanson DO [address] [place] [address] Medical Oncologist/V Block Saw Operator Hematology and Oncology 10/25/17 documented as of this encounter
--- OUTSIDE RECORDS SUMMARY | 2024-02-26 21:38 | XMS_ITS | Encounter Summary ---
Author Organization [facility] [place] Address [address] [place] [address] Phone Care Team Providers Care Hydrographic Engineer Name Role Phone Damon Swanson DO Unavailable [phone] Zeke Puente MD Primary Care Provider [phone] Encounter Details Date Type Department Care Team (Late st Contact Info) Description 12/19/2018 Telephone [facility] Oncology [address] [place] [address] Damon Swanson, DO [address] [address] Social History Tobacco Use Types Packs/Day Years Used Date Smoking Tobacco: Never Smokeless Tobacco: Never Alcohol Use Standard Drinks/Week Comments No 0 (1 standard drink = 0.6 oz pur e alcohol) PHQ-2 Answer Date Recorded PHQ-2 Score 0 11/03/2018 Comments Unknown Sex and Gender Information Value Date Recorded Sex Assigned at Not on file 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 Gender Identity Not on file Sexual Orientation Not on file documented as of this encounter Miscellaneous Notes * Telephone Encounter - Liseth Skelton CNS - 12/19/2018 11:46 AM CDT Called and left message for patient to reschedule missed appointment documented in this encounter Plan of Treatment Not on file documented as of this encounter Visit Diagnoses Not on filedocumented in this encounter Care Teams Hydrographic Engineer Relationship Specialty Start Date End Date Zeke Puente MD [address] [place] [address] PCP - General 12/02/18 Damon Swanson DO [address] [place] [address] Medical Oncologist/Client Hr Manager Hematology and Oncology 10/25/17 documented as of this encounter
--- OUTSIDE RECORDS SUMMARY | 2024-02-26 21:38 | XMS_ITS | Encounter Summary ---
Author Organization [facility] Healthcare Address [address] [place] [address] Care Team Providers Care Sharepoint Analyst Name Role Phone Damon Swanson DO Unavailable [phone] Zeke Puente MD Primary Care Provider [phone] Encounter Details Date Type Department Care Team (Latest Contact Info) Description 11/06/2019 7:42 PM CDT - 11/06/2019 10:29 PM CDT Hospital Encounter [facility] Diagnostic Imaging [address] [place] [address] [place] [address] [id number] [place] [address] Discharge Disposition: Discharge to home or self [...] on file 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 Sina Schilling MD IMG XR PROCEDURES Final Re sult documented in this encounter Visit Diagnoses Not on filedocumented in this encounter Care Teams Sharepoint Analyst Relationship Specialty Start Date End Date Zeke Puente MD [address] [place] [address] PCP - General 12/02/18 Damon Swanson DO [address] [place] [address] Medical Oncologist/Network Manager Hematology and Oncology 10/25/17 documented as of this encounter
--- OUTSIDE RECORDS SUMMARY | 2024-02-26 21:38 | XMS_ITS | Encounter Summary ---
Author Organization [facility] Healthcare Address [address] [place] [address] Care Team Providers Care High Man Name Role Phone Damon Swanson DO Unavailable [phone] Zeke Puente MD Primary Care Provider [phone] Encounter Details Date Type Department Care Team (Latest Contact Info) Description 11/06/2019 7:42 PM CDT - 11/06/2019 10:29 PM CDT Hospital Encounter [facility] Diagnostic Imaging [address] [place] [address] [place] [id number] [place] [address] Discharge Disposition: Discharge to home or self [...] on file 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 Procedure Note Harlan Tomas II, DO - 11/07/2019 EXAMINATION: XR FOOT RIGHT 3 [...] Harlan Tomas II, D.O. Sina Schilling MD IMG XR PROCEDURES Final Re sult documented in this encounter Visit Diagnoses Not on filedocumented in this encounter Care Teams High Man Relationship Specialty Start Date End Date Zeke Puente MD [address] [place] [address] PCP - General 12/02/18 Damon Swanson DO [address] [place] [address] Medical Oncologist/Report Specialist Hematology and Oncology 10/25/17 documented as of this encounter
--- OUTSIDE RECORDS SUMMARY | 2024-02-26 21:38 | XMS_ITS | Encounter Summary ---
Author Organization [facility] Healthcare Address [address] [place] [address] Care Team Providers Care Rn Gyn Name Role Phone Damon Swanson DO Unavailable [phone] Rene Shelton MD Primary Care Provider [phone] Encounter Details Date Type Department Care Team (Late st Contact Info) Description 07/31/2018 8:59 AM CDT - 07/31/2018 1:40 PM CDT Hospital Encounter [address] [address] Unknown, Rodrigo Allen, [address] [place] [address] Discharge Disposition: Discharge to home or self care Social History Tobacco Use Types Packs/Day Years Used Date Smoking Tobacco: Never Smokeless Tobacco: Never Alcohol Use Standard Drinks/Week Comments No 0 (1 standard drink = 0.6 oz pur e alcohol) Comments Unknown Sex and Gender Information Value Date Recorded Sex Assigned at Not on file 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 30 tablet 1 05/15/2018 09/09/20 20 documented as of this encounter Discharge Disposition Disposition Code Departure Means Destination Discharge to home or self care documented in this encounter Plan of Treatment Not on file documented as of this encounter Procedures Procedure Name Priority Date/Time Associated Diagnosis Comments ECG 12-LEAD 07/31/2018 10:47 AM CDT CBC WITH AUTO DIFFERENTIAL Routine 07/31/2018 9:47 AM CDT TROPONIN I Routine 07/31/2018 9:47 AM CDT B-TYPE NATRIURETIC PEPTIDE Routine 07/31/2018 9:47 AM CDT CREATINE KINASE (CK), TOTAL Routine 07/31/2018 9:47 AM CDT COMPREHENSIVE METABOLIC PANEL Routine 07/31/2018 9:47 AM CDT XR CHEST 1 VIEW 07/31/2018 9:09 AM CDT VL US ARTERIAL DUPLEX LOWER EXTREMITY BILATERAL 07/31/2018 12:00 AM CDT documented in this encounter Results * ECG 12 lead (07/31/2018 10:47 AM CDT) Ventricular Rate EKG/Min 67 BPM ER RADIOLOGY Atrial Rate 67 BPM ER RADIOLOGY TX-Interval (MSEC) 180 ms ER RADIOLOGY QRS-Interval (MSEC) 100 ms ER RADIOLOGY QT-Interval (MSEC) 450 ms ER RADIOLOGY QTc 475 ms ER RADIOLOGY P [place] 49 degrees ER RADIOLOGY R [place] -42 degrees ER RADIOLOGY T [place] 92 degrees ER RADIOLOGY Diagnosis Normal sinus rhythm Left axis deviation Septal infarct (cited on or before 18-NOV-2017) Possible Lateral infarct (cited on or before 18-NOV-2017) Abnormal ECG When compared with ECG of 18-NOV-2017 16:14, No significant change was found ER RADIOLOGY 07/31/2018 10:4 7 AM CDT 07/31/2018 5:02 PM CDT Narrative Resulting Agency Comment DORA Rodrigo Temple DO ECG ORDERABLES Final Result Performing Organization Address City/[facility]/ZIP Co de Phone Number ER RADIOLOGY * B-type natriuretic peptide (07/31/2018 9:47 AM CDT) B-Natriuretic Peptide 59 0 - 100 pg/mL [facility] Comment: B Natriutetic Peptide METHOD: ??Siemens Centaur XP using MIESHA. Decision threshold of 100 pg/mL has been demonstrated to provide the maximal combination of sensitivity, specificity, and predictive value for the diagnosis of congestive heart failure (CHF). ??Virtually all patients with no evidence of CHF have BNP values <100 pg/mL. NOTE: ??Nesiritide (Natrecor) interferes with the BNP assay. BNP result will be invalid if drawn within 2 hours of bolus or infusion of nesiritide. 07/31/2018 9:47 AM CDT 07/31/2018 9:51 AM CDT Narrative Resulting Agency Comment ER Rodrigo Temple DO LAB BLOOD ORDERABLES Final Res ult Performing Organization Address [facility] Co de Phone Number [address] [phone] * Troponin I (07/31/2018 9:47 AM CDT) Pathologist [facility] Troponin I <0.300 0.000 - 0.300 ng/mL [facility] Comment: Reference using CHRISTIANE Chemiluminescence ? Negative: Repeat in 4-6 hours as indicated. 07/31/2018 9:47 AM CDT 07/31/2018 9:51 AM CDT Narrative Resulting Agency Comment ER [employer] Rodrigo Temple DO LAB BLOOD ORDERABLES Final Res ult Performing Organization Address [facility]/ZIP Co de Phone Number [address] [phone] * (ABNORMAL) Comprehensive metabolic panel (07/31/2018 9:47 AM CDT) [facility] Sodium 135 135 - 145 mmol/L [facility] Potassium 3.8 3.3 - 5.1 mmol/L [facility] Chloride 92(L) 96 - 108 mmol/L [facility] Carbon Dioxide 31 22 - 32 mmol/L [facility] Anion Gap 12 7 - 16 [facility] Glucose 398(H) 70 - 100 mg/dL [facility] BUN 11 8 - 25 mg/dL [facility] Creatinine 0.7 0.5 - 1.1 mg/dL [facility] Comment: NOTE: Estimated GFR (Cockroft-Gault) will NOT be calculated unless patient Height and Weight were entered. Also, Kidney Disease Stage (GFR) and Estimated GFR (Cockroft-Gault) will NOT be calculated if Creatinine result is <0.2. Kidney Disease Stage >90 mL/MIN [facility] Comment: NOTE; ??The GFR is an estimated [...] failure or on dialysis Est GFR (Cockcroft-G) 97 ml/MIN [facility] Comment: Estimated GFR(Cockroft-Gault)is used to calculate patient medication dosage Calcium 9.2 8.6 - 10.3 mg/dL [facility] Total Protein 7.7 6.4 - 8.3 g/dL [facility] Albumin 4.1 3.5 - 5.0 g/dL [facility] Globulin 3.6(H) 2.3 - 3.5 gm/dL [facility] Albumin/Globulin Ratio 1.1 1.1 - 1.8 [facility] Total Bilirubin 1.1 0.0 - 1.2 mg/dL [facility] AST 123(H) 0 - 32 U/L [facility] ALT 96(H) 0 - 33 U/L [facility] Alkaline Phosphatase 52 35 - 104 U/L [facility] 07/31/2018 9:47 AM CDT 07/31/2018 9:51 AM CDT Narrative Resulting Agency Comment ER Rodrigo Temple DO LAB BLOOD ORDERABLES Final Res ult Performing Organization Address City/[facility]/ZIP Co de Phone Number [address] [phone] * (ABNORMAL) Creatine kinase (CK), total (07/31/2018 9:47 AM CDT) Creatine Kinase 699(H) 20 - 180 U/L [facility] 07/31/2018 9:47 AM CDT 07/31/2018 9:51 AM CDT Narrative Resulting Agency Comment ER [employer] LAB BLOOD ORDERABLES Final Res ult [address] [phone] * (ABNORMAL) CBC with auto differential (07/31/2018 9:47 AM CDT) WBC 5.6 3.8 - 9.9 X10 3/ul [facility] RBC 3.60(L) 3.90 - 5.20 x10 6/ul [facility] Hemoglobin 11.0(L) 11.9 - 15.5 g/dL [facility] Hct 32.6(L) 35.6 - 45.5 % [facility] MCV 90.6 81.3 - 96.4 fl [facility] MCH 30.6 27.1 - 33.3 pg [facility] MCHC 33.7 32.3 - 35.7 g/dl [facility] RDW 13.7 11.1 - 14.9 % [facility] Plt Count 222 150 - 400 x10 3/ul [facility] MPV 10.7 9.1 - 12.3 fl [facility] Neut % 78.0 % [facility] Immature Gran % 0.4 % [facility] Lymph % 14.1 % [facility] [place] % 6.2 % [facility] Eos % 0.9 % [facility] AUTO BASO % 0.4 % [facility] NEUTROPHIL ABS # 4.4 1.7 - 6.5 x10 3/ul [facility] Immature Gran # 0.0 0.0 - 0.1 x10 3/ul [facility] Absolute Lymphs (auto) 0.8 0.8 - 3.3 x10 3/ul [facility] Absolute Monos (auto) 0.4 0.2 - 0.8 x10 3/ul [facility] Absolute Eos (auto) 0.1 0.0 - 0.5 x10 3/ul [facility] BASOPHIL ABS # 0.0 0.0 - 0.1 x10 3/ul [facility] Nucleat RBC Rel Count 0.0 #/100WBC [facility] NRBC abs 0.00 0.00 - 0.01 x10 3/ul [facility] Absolute Neutrophils 4,400 200 - 8,000 /ul [facility] 07/31/2018 9:47 AM CDT 07/31/2018 9:51 AM CDT Narrative Resulting Agency Comment ER us Rodrigo Temple DO LAB BLOOD ORDERABLES Final Res ult Performing Organization Address [facility]/State/[place]IP [place] [address], [facility] [phone] * XR Chest 1 View (07/31/2018 9:09 AM CDT) Anatomical Region Laterality Modality Body, Chest N/A Radiographic Sylvia ging 07/31/2018 10:1 3 AM CDT Narrative 07/31/2018 10:18 AM CDT Patient Name: IRIS GIL ?Ordering Dr: Rodrigo Temple DO ?? D.O.B: 1955 ? Exam Date: 07/31/18 ?? 0909 ?? Age: 63 ?Sex: Female ? MR#: [id number] ?? Loc: ? RADIOLOGY REPORT ?? Order #[id number] ?? Radiology ? Chest 1 View Portable ? Signed ?? EXAM DESCRIPTION: ??Chest 1 View Portable ? REASON FOR STUDY: ??Weakness and shortness of breath beginning this morning. ? Shortness of breath on exertion. ? TECHNIQUE: ??Frontal radiographic view of the chest acquired. ? COMPARISON: ??04/11/2018 and 04/09/2018 ? FINDINGS: ? Senescent changes aortic arch. ??There is cardiomegaly as was previously seen. ? Pulmonary vascularity appears normal. ??No acute pulmonary edema. ??No ?? infiltrate or effusion. ??Linear opacity left upper chest is again seen, ?? scarring or atelectasis. ? Osseous structures demonstrate no acute findings. ? IMPRESSION: ? 1. ??There is cardiomegaly with no acute pulmonary edema or infiltrate. ? THIS IS AN ELECTRONICALLY VERIFIED FINAL REPORT ?? 07/31/2018 10:18 AM - Electronically signed by Bud Taylor M.D. ?? Bud Taylor M.D. ? MJ ?? D: ??07/31/2018 10:18 AM ?? T: ? Report ID: [id number] ?? Reading Location: ??[id number] ? REPORT ELECTRONICALLY SIGNED IN OTHER VENDOR SYSTEM ?? Resulting Agency Comment E Procedure Note Bud Taylor MD - 07/31/2018 Patient Name: IRIS GIL Dr: Rodrigo Temple DO DPerlita.B: 1955 Exam Date: 07/31/18908 Age: 63 Sex: Female MR#: [id number] Loc: RADIOLOGY REPORT Order #[id number] Radiology Chest 1 View Portable Signed EXAM DESCRIPTION: Chest 1 View Portable REASON FOR STUDY: Weakness and shortness of breath beginning thismorning. Shortness of breath on exertion. TECHNIQUE: Frontal radiographic view of the chest acquired. COMPARISON: 04/11/2018 and 04/09/2018 FINDINGS: Senescent changes aortic arch. There is cardiomegaly as was previouslyseen. Pulmonary vascularity appears normal. No acute pulmonary edema. No infiltrate or effusion. Linear opacity left upper chest is again seen, scarring or atelectasis. Osseous structures demonstrate no acute findings. IMPRESSION: 1. There is cardiomegaly with no acute pulmonary edema or infiltrate. THIS IS AN ELECTRONICALLY VERIFIED FINAL REPORT 07/31/2018 10:18 AM - Electronically signed by Bud Taylor M.D. MJ T: Report ID: [id number] Reading Location: [id number] REPORT ELECTRONICALLY SIGNED IN OTHER VENDOR SYSTEM us Rodrigo Temple DO IMG XR PROCEDURES Final Result * US Arterial Duplex Lower Extremity Bilateral (07/31/2018 12:00 AM CDT) Anatomical Region Laterality Modality Vascular Bilateral Ultrasound 08/02/2018 12:1 7 PM CDT Narrative 08/02/2018 1:32 PM CDT ? Patient Name: IRIS GIL ? MR#: [id number] ?? [id number] ? Status: DEP ER ?D.O.B: 1955 Age: ??63 ?Sex: Female ? ADM/SER Dt: 07/31/18 ?Disch Dt: 07/31/18 ?LOC: [facility] ? Ordering Rodrigo Vaz DO ? Order #[id number] ? Arterial Doppler Legs ?? Keith Grande MD ? Signed ?? DATE OF SERVICE: ?? 07/31/2018 ? REASON FOR STUDY: ??Claudication and foot pain. ? Triphasic flow in the right common femoral, biphasic flow in the popliteal, monophasic flow in the dorsalis pedis and posterior tibial vessels. ??ZAYNAB is 0.62/0.64 DP/PT. ??Triphasic flow in the left common femoral, biphasic flow in the popliteal and posterior tibial vessels. ??Unable to locate the dorsalis pedis. ??ZAYNAB is noncompressible in the left posterior tibia. ? 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 ??Ischemic claudication is likely bilaterally. ??Ischemic rest pain is possible bilaterally. ? NTS ? Job: [id number] ? Dictated By: Keith Grande MD ?? Dictated For: Keith Grande MD ? <Electronically signed by Keith Grande MD> ? 08/03/18711 ?? Resulting Agency Comment E Procedure Note Keith Grande MD - 08/03/2018 Patient Name: IRIS GIL #: [id number] Status: DEP CLAU D.O.B: 1955 Age: 63Sex: Female ADM/SER Dt: 07/31/18 Disch Dt: 07/31/18LOC: [facility] Ordering Phy: Rodrigo Temple DO Order #[id number] Arterial Doppler Legs Keith Grande MD Signed DATE OF SERVICE: 07/31/2018 REASON FOR STUDY: Claudication and foot pain. Triphasic flow in the right common femoral, biphasic flow in thepopliteal, monophasic flow in the dorsalis pedis and posterior tibial vessels. ZAYNAB is 0.62/0.64 DP/PT.Triphasic flow in the left common femoral, biphasic flow in the popliteal and posterior tibialvessels. Unable to locate the dorsalis pedis. ZAYNAB is noncompressible in the left posterior tibia. IMPRESSION: Bilateral superficial femoral artery and infrapoplitealocclusive disease with moderate to severe distal ischemia. Ischemic claudication is likelybilaterally. Ischemic rest pain is possible bilaterally. NTS Job: [id number] Dictated By: Keith Grande MD Dictated For: Keith Grande MD <Electronically signed by Keith Grande MD> 08/03/18 0712 us Rodrigo Temple DO IMG US PROCEDURES Final Result documented in this encounter Visit Diagnoses Not on filedocumented in this encounter Care Teams Rn Gyn Relationship Specialty Start Date End Date Rene Shelton MD [address] [address] PCP - General Family Medicine 06/12/18 12/01/18 Damon Swanson DO [address] [address] Medical Oncologist/Parts Analyst Hematology and Oncology 10/25/17 documented as of this encounter
--- OUTSIDE RECORDS SUMMARY | 2024-02-26 21:38 | XMS_ITS | Encounter Summary ---
Author Organization [facility] Address [address] [place] [address] Care Team Providers Care Chief Relay Tester Name Role Phone Damon Swanson DO Unavailable [phone] Rene Shelton MD Primary Care Provider [phone] Reason for Visit * Reason Comments tingling and burning sensations discuss medications pt seems to be unsur e of what medications she takes. Encounter Details Date Type Department Care Team (Latest Contact Info) Description 06/21/2018 12:45 PM CDT Office Visit [facility] Family Medicine [address] [place] [address] Rene Shelton MD [address] [place] [id number] Polyneuropathy associated with underlying disease (CMS/HCC) (Primary Dx); Essential hypertension; Controlled type 2 diabetes mellitus with diabetic peripheral angiopathy without gangrene, with long-term 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); Leg cramps Social History Tobacco Use Types Packs/Day Years Used Date Smoking Tobacco: Never Smokeless Tobacco: Never Alcohol Use Standard Drinks/Week Comments No 0 (1 standard drink = 0.6 oz pur e alcohol) Comments Unknown Sex and Gender Information Value Date Recorded Sex Assigned at Not on file 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 Gender Identity Not on file Sexual Orientation Not on file documented as of this encounter Last Filed Vital Signs Vital Sign Reading Time Taken Comments Blood Pressure 130/82 06/21/2018 12:33 PM CDT Pulse 71 06/21/2018 12:33 PM CDT Temperature 36.7 ??C (98.1 ??F) 06/21/2018 12:33 PM C DT Respiratory Rate 16 06/21/2018 12:33 PM CDT Oxygen Saturation 98% 06/21/2018 12:33 PM CDT Inhaled Oxygen Concentration - - Weight 95.3 kg (210 lb) 06/21/2018 12:33 PM CDT Height 157.5 cm (5' 2 ) 06/21/2018 12:33 PM CDT Body Mass Index 38.41 06/21/2018 12:33 PM CDT documented in this encounter Ordered Prescriptions Prescription Sig Dispense Quantity Refills Last Filled Start Date End Date pregabalin (LYRICA) 50 mg capsuleIndications :Polyneuropathy associated with underlying disease (HCC) Take 1 capsule (50 mg total) by mouth 2 (two) times a day 84 capsule 06/21/2018 0 documented in this encounter Progress Notes * Rene Shelton MD - 06/21/2018 12:45 PM CDT Subjective/Objective Patient ID: Iris Pascual is a 63 y.o. female. Visit Date: 06/21/2018 Chief Complaint tingling and burning sensations and discuss medications (pt seems to be unsure of what medications she takes. ) HPI presesents to the office with cc of severe burning in the legs and the feet. States wayne the legs feel like they are on fire. States that she also has a large amount of cramping int eh legs and he legs are tight all the time. Taking her meds as directed. States that she gabapentin is not working. Getting worse. Swelling in the legs is under control. Review of Systems Musculoskeletal: Positive for arthralgias, back pain and myalgias. Edema Neurological: Burning, cramping and neuropathy in the legs. Physical Exam Constitutional: She is oriented to person, place, and time. She appears well- developed and well-nourished. No distress. HENT: Head: Normocephalic. Right Ear: External ear normal. Left Ear: External ear normal. Mouth/Throat: Oropharynx is clear and moist. Eyes: Pupils are equal, round, and reactive to light. Conjunctivae are normal. Neck: Neck supple. No thyromegaly present. ROM appropriate Cardiovascular: Normal rate, regular rhythm and normal heart sounds. Exam reveals no gallop and no friction rub. No murmur heard. Pulmonary/Chest: Effort normal and breath sounds normal. Abdominal: Soft. Bowel sounds are normal. She exhibits no distension. There is no tenderness. Musculoskeletal: Trace edema in the legs with pn and burning. Muscle cramps in the thighs. Neurological: She is alert and oriented to person, place, and time. Skin: Skin is warm and dry. Capillary refill takes less than 2 seconds. Psychiatric: She has a normal mood and affect. Her behavior is normal. Vitals reviewed. Assessment/Plan Diagnoses and all orders for this visit: Polyneuropathy associated with underlying disease ([facility]) (G63) (Primary) Comments: stop gabapentin. lyrica 50 mg bid Essential hypertension (I10) Comments: refill meds. Controlled type 2 diabetes mellitus with diabetic peripheral angiopathy without gangrene, with long-term current use of insulin ([facility]) (E11.51, Z79.4) Comments: refill meds. check hem a1c Orders: - Hemoglobin A1c; Future Leg cramps (R25.2) Comments: check mag level Orders: - Magnesium; Future Rene Shelton MD documented in this encounter Plan of Treatment Not on file documented as of this encounter Procedures Procedure Name Priority Date/Time Associated Diagnosis Comments MAGNESIUM Routine 06/21/2018 2:10 PM CDT Leg cramps HEMOGLOBIN A1C Routine 06/21/2018 2:10 PM CDT Controlled type 2 diabetes mellitus with diabetic peripheral angiopathy without gangrene, with long-term current use of insulin ([facility]) documented in this encounter Results * (ABNORMAL) Hemoglobin A1c (06/21/2018 2:10 PM CDT) Hemoglobin A1c % 13.9(H) 4.0 - 5.6 % [facility] Comment: ADA 2016 GUIDELINES: ??Initial Diagnostic Criteria ? HbA1c Result: ?Interpretation: ?<5.7% ? Normal ?5.7-6.4% ?At risk for diabetes mellitus ?>=6.5% ?Consistent with diabetes mellitus ??Diabetes monitoring ? Target value (ADA Recommended) ?? <7% Blood specimen (specimen) 06/21/2018 2:10 PM CDT 06/21/2018 2:35 PM CDT Narrative Resulting Agency Comment CLI Rene Shelton MD LAB BLOOD ORDERABLES Final Resu lt Performing Organization Address [facility] de Phone Number [address] [phone] * Magnesium (06/21/2018 2:10 PM CDT) Pathologist [facility] Magnesium 1.6 1.6 - 2.6 mg/dL [facility] Comment: Magnesium sulfate therapy: ??3.0-9.1 mg/dL Blood specimen (specimen) 06/21/2018 2:10 PM CDT 06/21/2018 2:35 PM CDT Narrative Resulting Agency Comment CLI Rene Shelton MD LAB BLOOD ORDERABLES Final Resu lt Performing Organization Address [facility] de Phone Number [address] [phone] documented in this encounter Visit Diagnoses Diagnosis Polyneuropathy associated with underlying disease (HCC)- Primary Essential hypertension Unspecified essential hypertension Controlled type 2 diabetes mellitus with diabetic peripheral angiopathy without gangrene, with long-term current use of insulin (HCC) Leg cramps Cramp of limb documented in this encounter Discontinued Medications Medication Sig Discontinue Reason Start Date End Da te gabapentin (NEURONTIN) 100 mg capsule Take 1 capsule (100 mg total) by mouth 3 (three) times a day. Alternate therapy 05/15/2018 06/21/2018 documented as of this encounter Care Teams Chief Relay Tester Relationship Specialty Start Date End Date Rene Shelton MD [address] [phone] PCP - General Family Medicine 06/12/18 12/01/18 Damon Swanson DO [facility] [id number] Medical Oncologist/Fbi Field Agent Hematology and Oncology 10/25/17 documented as of this encounter
--- OUTSIDE RECORDS SUMMARY | 2024-02-26 21:38 | XMS_ITS | Encounter Summary ---
Author Organization [facility] Healthcare Address [address] [place] [address] Care Team Providers Care Event Staff Name Role Phone Damon Swanson DO Unavailable [phone] Zeke Puente MD Primary Care Provider [phone] Sarah Baldwin MD, Karl Ralph. 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 Gender Identity Not on file Sexual [...] 1 tablet (50 mcg total) by mouth rn corrections before breakfast 30 tablet 1 0 06/17/19 [...] Name Priority Date/Time Associated Diagnosis Comments US ARTERIAL DOPPLER LOWER EXTREMITY BILATERAL IP Routine 11/08/2019 12:14 PM CDT documented in this encounter Results * US AZYNAB And Arterial Doppler Lower Extremity Bilateral (11/08/2019 12:14 PM CDT) Anatomical Region Laterality Modality Vascular Bilateral Ultrasound 11/08/2019 12:2 0 PM CDT Impressions 11/08/2019 12:22 PM CDT There is severe arterial insufficiency in both lower extremities, primarily in an infrapopliteal location. Electronically signed by: Antonino Jnae M.D. Narrative 11/08/2019 12:22 PM CDT EXAMINATION: [...] location. Electronically signed by: Antonino Jane M.D. us Zack Johnson NP IMG US PROCEDURES Final Resu lt documented in this encounter Visit Diagnoses Not on filedocumented in this encounter Care Teams Event Staff Relationship Specialty Start Date End Date Zeke Puente MD [address] [place] [address] PCP - General 12/02/18 Damon Swanson DO [address] [place] [id number] Medical Oncologist/Dry Man Hematology and Oncology 10/25/17 Karl Smith Jr., MD [address] [facility] [place] [address] Surgeon General Surgery 11/07/19 documented as of this encounter
--- OUTSIDE RECORDS SUMMARY | 2024-02-26 21:39 | XMS_ITS | Encounter Summary ---
Author Organization [facility] Healthcare Address [address] [place] [address] Care Team Providers Care Ethylene Plant Helper Name Role Phone Unavailable Primary Care Provider Unavailabl e Encounter Details Date Type Department Care Team (Latest Contact Info) Description 12/18/2015 2:07 PM CDT Hospital Encounter [facility] OP Encounter for screening mammogram for malignant neoplasm of breast; Personal history of malignant neoplasm of breast Social History Tobacco Use Types Packs/Day Years Used Date Smoking Tobacco: Never Assessed Comments Unknown Sex and Gender Information Value Date Recorded Sex Assigned at Not on file 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 us Historical Provider MD MONTERO XR PROCEDURES Final R esult * Screening Mammogram Bilateral W Zac (12/18/2015 2:09 PM CDT) Anatomical Region Laterality Modality Breast Bilateral Mammography 12/18/2015 2:09 PM CDT Impressions 12/21/2015 7:51 AM CDT BI-RAD 2 ??BENIGN There is no mammographic evidence of malignancy. A 1 year screening mammogram is recommended. ?? The patient has been or will be contacted. ?? The patient will be entered into a reminder system with a target due date of 1 year for her next screening exam. Electronically signed by: Dr. Venkat Champion nh/:12/21/2015 07:50:04 ?? Feeder Operator Automatic: Lucero VIVEROS (Yocasta)(Nathan), [facility] letter sent: Normal Exam ?? Reading location: BI-RADS: 2 Benign [EOD] Narrative 12/21/2015 7:51 AM CDT - MG BILATERAL DIGITAL SCREENING MAMMOGRAM 3D/2D WITH CAD WITH MEDIOLATERAL OBLIQUE CRANIOCAUDAL: 12/18/2015 The study was acquired using full field digital technology and interpreted from soft copy. ?? Current study was also evaluated with R2 CAD. 2D digital mammographic views, as well as 3D digital tomosynthesis were performed in the CC and MLO projections. CLINICAL: Routine mammogram. Denies any problems today. ??Personal history of bilateral breast cancer in 2010. No family history of breast cancer. ?? COMPARISONS: Comparison is made to exams dated: ??11/07/2014 mammogram and 10/30/2013 mammogram - [facility]. ?? BREAST TISSUE: The tissue of both breasts is almost entirely fatty. ?? FINDINGS: There are benign calcifications in both breasts. ??There is a benign postsurgical fluid collection in the posterior upper outer right breast. ??There also are post operative findings in the left breast. ?? No significant masses, calcifications, or other findings are seen in either breast. ?? There has been no significant interval change. Procedure Note Provider, MD Almita - 07/28/2020 - MG BILATERAL DIGITAL SCREENING MAMMOGRAM 3D/2D WITH CAD WITH MEDIOLATERALOBLIQUE CRANIOCAUDAL: 12/18/2015 The study was acquired using full field digital technology and interpretedfrom soft copy. Current study was also evaluated with R2 CAD. 2D digital mammographic views, as well as 3D digital tomosynthesis were performed in the CC and MLO projections. CLINICAL: Routine mammogram. Denies any problems today. Personal historyof bilateral breast cancer in 2010. No family history of breast cancer. COMPARISONS: Comparison is made to exams dated: 11/07/2014 mammogram and 10/30/2013 mammogram - [facility]. BREAST TISSUE: The tissue of both breasts is almost entirely fatty. FINDINGS: There are benign calcifications in both breasts. There is abenign postsurgical fluid collection in the posterior upper outer right breast.There also are post operative findings in the left breast. No significant masses, calcifications, or other findings are seen ineither breast. There has been no significant interval change. IMPRESSION: BI-RAD 2 BENIGN There is no mammographic evidence of malignancy. A 1 year screeningmammogram is recommended. The patient has been or will be contacted. The patient will be entered into a reminder system with a target due dateof 1 year for her next screening exam. Electronically signed by: Dr. Venkat Champion nh/:12/21/2015 07:50:04 Feeder Operator Automatic: Lucero VIVEROS (R)(Nathan), [facility] letter sent: Normal Exam Reading location: BI-RADS: 2 Benign [EOD] us Historical Provider MD MONTERO MAMMO PROCEDURES Debbie l Result documented in this encounter Visit Diagnoses Diagnosis Encounter for screening mammogram for malignant neoplasm of breast Personal history of malignant neoplasm of breast documented in this encounter
--- OUTSIDE RECORDS SUMMARY | 2024-02-26 21:39 | XMS_ITS | Encounter Summary ---
Author Organization [facility] Healthcare Address [address] [place] [address] Care Team Providers Care Revenue Officer Name Role Phone Unavailable Primary Care Provider Unavailabl e Encounter Details Date Type Department Care Team (Latest Contact Info) Description 01/17/2017 3:14 PM COMPLIANCE SPECIALIST Hospital Encounter [facility] Damon Swanson, DO [address] [id number] Dizziness and giddiness; Personal history of malignant neoplasm of breast; Encounter for follow-up examination after completed treatment for malignant neoplasm Social History Tobacco Use Types Packs/Day Years Used Date Smoking Tobacco: Never Assessed Comments Unknown Sex and Gender Information Value Date Recorded Sex Assigned at Not on file Legal Sex Female 12:30 PM COMPLIANCE SPECIALIST Gender Identity Not on file Sexual Orientation Not on file documented as of this encounter Plan of Treatment Not on file documented as of this encounter Procedures Procedure Name Priority Date/Time Associated Diagnosis Comments CT ABDOMEN W CONTRAST Routine 01/17/2017 12:[address] CHEST W CONTRAST Routine 01/17/2017 1 2:[address] HEAD W WO CONTRAST Routine 01/17/2017 12:00 AM COMPLIANCE SPECIALIST documented in this encounter Results * CT Abdomen W Contrast (01/17/2017 12:00 AM COMPLIANCE SPECIALIST) Anatomical Region Laterality Modality Body N/A Computed Tomogra phy 01/17/2017 Impressions 01/17/2017 4:39 PM COMPLIANCE SPECIALIST ?? 1. ??Fluid collection seen within the posterolateral right breast soft tissues just anterior to the pectoralis musculature. ??Findings could represent seroma or even abscess in the appropriate clinical setting and continued follow-up is recommended. ??This would be amenable to percutaneous aspiration via ultrasound guidance if indicated. 2. ??There is an additional incompletely evaluated large fluid collection seen within the subcutaneous fat just anterior to the ventral abdominal wall. ??This was present on the July 27 and again could represent a simple fluid collection such as a seroma or potentially an abscess. ??Again, this would be amenable to percutaneous aspiration under ultrasound guidance. 3. ??No evidence of metastatic disease in the chest or abdomen. 4. ??Moderate pericardial effusion. 5. ??Gastroesophageal reflux. 6. ??Areas of scarring and atelectasis in the lungs without evidence of focal pneumonia, pleural effusion or pneumothorax. 7. ??Possible pancreatic body lesion versus slightly enhancing asymmetric and heterogeneous pancreatic tissue. ??Pancreatic MRI recommended for further evaluation. Automated exposure control was used as a dose optimization technique for this examination. THIS IS AN ELECTRONICALLY VERIFIED REPORT 01/17/2017 4:35 PM: ??Harlan Schuler D.O. ?? Harlan Schuler D.O. DW:[place] 04:35 PM 04:35 PM MON [EOD] Narrative 01/17/2017 4:39 PM COMPLIANCE SPECIALIST EXAMINATION: ??CT chest, and abdomen with contrast. HISTORY: ??Breast cancer follow-up. ??Restaging exam. ??Dizziness as well. ?? Dizziness has been present for 3 months. ?? section. ??Umbilical hernia. COMPARISON: ??CT most recently dated 10/18/16. TECHNIQUE: ??Contiguous axial CT images of the chest and abdomen were obtained, following the intravenous administration of 100 mL of Omnipaque 350 contrast material into the right antecubital fossa. ??Oral contrast was also administered. ??Sagittal and coronal reformatted images were acquired and reviewed. ??Automated exposure control techniques were utilized for dose optimization. FINDINGS: ?? Chest: ??In the right lateral breast soft tissues, just anterior to the pectoralis musculature, there is a sizable focal fluid collection measuring 5.5 x 6.6 cm in AP and transverse diameters respectively. ??The fluid seen within this hypoattenuating collection is simple, measuring less than 20 Hounsfield units. ??Findings could represent postoperative seroma or even abscess in the appropriate setting. ??Follow-up recommended. ??Mild bilateral breast skin thickening. There is a moderate pericardial effusion. ??The heart size is at the upper limits of normal to mildly enlarged. ??There is gastroesophageal reflux. ?? Calcified and noncalcified mediastinal and hilar lymph nodes are present. ??No overt lymphadenopathy in the chest. ??No axillary lymphadenopathy. ??There are clips in the left axilla. ??There are areas of linear scarring and atelectasis in the lungs. ??Dependent atelectatic changes are also noted. ??There is no focal pneumonia, pleural effusion or pneumothorax present. ??No suspicious pulmonary nodules or masses are present to suggest metastatic disease to the lungs. ??The central airways are clear. ??There is no bronchial wall thickening or mucus plugging present. Abdomen: ??No sizable hiatal hernia. ??Atherosclerotic aorta without aneurysmal dilatation. Stomach is filled with oral contrast and is unremarkable as seen. ?? There are no adrenal masses present. ??There is a somewhat hyperattenuating but heterogeneous rounded density seen in the region of the pancreatic body on axial image 45, medially adjacent to the lesser curvature of the stomach, measuring about 1.3 cm. ??While this simply may represent heterogeneous pancreatic material, a pancreatic neoplastic process cannot be excluded pancreatic protocol MRI is recommended for further evaluation. ??No acute pancreatitis. ??Calcified splenic granulomas. ??Tiny accessory spleen. ??No cholelithiasis. ??There are no suspicious hepatic masses. ??No evidence of metastatic disease is present within the abdomen. ??No abdominal lymphadenopathy. ??Portal venous structures are patent. ??Origins of the celiac artery, superior mesenteric artery and renal arteries are patent as well. ??The kidneys enhance symmetrically. ??No nephrolithiasis or obstructive uropathy. ?? There are no enhancing renal masses. ??Visualized ureters are normal as well. ?? There is evidence of prior surgery involving the ventral abdominal/pelvic wall. ??Just anterior to this, there is a large rounded fluid collection seen with a thin enhancing rim, measuring 8.0 x 10.1 cm in AP and transverse dimensions respectively. ??Again, this could represent a seroma or potentially an abscess. ??It is not completely visualized on today's images. ??This would be amenable to percutaneous drainage. ??It was present on the examination from 10/18/16. Bones: ??Thoracic and lumbosacral spondylosis. ??No acute or destructive osseous abnormalities are appreciated. Procedure Note Provider, MD Almita - 07/28/2020 EXAMINATION: CT chest, and abdomen with contrast. HISTORY: Breast cancer follow-up. Restaging exam. Dizziness as well. Dizziness has been present for 3 months. section. Umbilicalhernia. COMPARISON: CT most recently dated 10/18/16. TECHNIQUE: Contiguous axial CT images of the chest and abdomen wereobtained, following the intravenous administration of 100 mL of Omnipaque 350contrast material into the right antecubital fossa. Oral contrast was also administered. Sagittal and coronal reformatted images were acquired and reviewed. Automated exposure control techniques were utilized for dose optimization. FINDINGS: Chest: In the right lateral breast soft tissues, just anterior to the pectoralis musculature, there is a sizable focal fluid collectionmeasuring 5.5 x 6.6 cm in AP and transverse diameters respectively. The fluid seen within this hypoattenuating collection is simple, measuring less than 20 Hounsfield units. Findings could represent postoperative seroma or even abscess in the appropriate setting. Follow-up recommended. Mildbilateral breast skin thickening. There is a moderate pericardial effusion. The heart size is at the upper limits of normal to mildly enlarged. There is gastroesophageal reflux. Calcified and noncalcified mediastinal and hilar lymph nodes are present.No overt lymphadenopathy in the chest. No axillary lymphadenopathy. Thereare clips in the left axilla. There are areas of linear scarring andatelectasis in the lungs. Dependent atelectatic changes are also noted. There is no focal pneumonia, pleural effusion or pneumothorax present. No suspicious pulmonary nodules or masses are present to suggest metastatic disease tothe lungs. The central airways are clear. There is no bronchial wallthickening or mucus plugging present. Abdomen: No sizable hiatal hernia. Atherosclerotic aorta withoutaneurysmal dilatation. Stomach is filled with oral contrast and is unremarkable asseen. There are no adrenal masses present. There is a somewhat hyperattenuatingbut heterogeneous rounded density seen in the region of the pancreatic body on axial image 45, medially adjacent to the lesser curvature of the stomach, measuring about 1.3 cm. While this simply may represent heterogeneous pancreatic material, a pancreatic neoplastic process cannot be excluded pancreatic protocol MRI is recommended for further evaluation. No acute pancreatitis. Calcified splenic granulomas. Tiny accessory spleen. No cholelithiasis. There are no suspicious hepatic masses. No evidence of metastatic disease is present within the abdomen. No abdominal lymphadenopathy. Portal venous structures are patent. Origins of theceliac artery, superior mesenteric artery and renal arteries are patent as well.The kidneys enhance symmetrically. No nephrolithiasis or obstructiveuropathy. There are no enhancing renal masses. Visualized ureters are normal aswell. There is evidence of prior surgery involving the ventral abdominal/pelvic wall. Just anterior to this, there is a large rounded fluid collectionseen with a thin enhancing rim, measuring 8.0 x 10.1 cm in AP and transverse dimensions respectively. Again, this could represent a seroma orpotentially an abscess. It is not completely visualized on today's images. Thiswould be amenable to percutaneous drainage. It was present on the examination from 10/18/16. Bones: Thoracic and lumbosacral spondylosis. No acute or destructiveosseous abnormalities are appreciated. IMPRESSION: 1. Fluid collection seen within the posterolateral right breast softtissues just anterior to the pectoralis musculature. Findings could representseroma or even abscess in the appropriate clinical setting and continuedfollow-up is recommended. This would be amenable to percutaneous aspiration viaultrasound guidance if indicated. 2. There is an additional incompletely evaluated large fluid collectionseen within the subcutaneous fat just anterior to the ventral abdominal wall.This was present on the July 27 and again could represent a simple fluidcollection such as a seroma or potentially an abscess. Again, this would be amenableto percutaneous aspiration under ultrasound guidance. 3. No evidence of metastatic disease in the chest or abdomen. 4. Moderate pericardial effusion. 5. Gastroesophageal reflux. 6. Areas of scarring and atelectasis in the lungs without evidence offocal pneumonia, pleural effusion or pneumothorax. 7. Possible pancreatic body lesion versus slightly enhancing asymmetricand heterogeneous pancreatic tissue. Pancreatic MRI recommended for further evaluation. Automated exposure control was used as a dose optimization technique forthis examination. THIS IS AN ELECTRONICALLY VERIFIED REPORT 01/17/2017 4:35 PM: Harlan Schuler D.O. Harlan Schuler D.O. DW:[place] 04:35 PM 04:35 PM MON [EOD] Damon Swanson DO IMG CT PROCEDURES Final Resu lt * CT Head W WO Contrast (01/17/2017 12:00 AM COMPLIANCE SPECIALIST) Anatomical Region Laterality Modality Head and Neck N/A Computed Tomogra phy 01/17/2017 Impressions 01/17/2017 4:43 PM COMPLIANCE SPECIALIST ?? 1. ??No acute intracranial hemorrhage, midline shift or mass effect. 2. ??No evidence of metastatic disease to the brain. ??No abnormal areas of enhancement are appreciated. Automated exposure control was used as a dose optimization technique for this examination. THIS IS AN ELECTRONICALLY VERIFIED REPORT 01/17/2017 4:39 PM: ??Harlan Schuler D.O. ?? Harlan Schuler D.O. DW:[place] 04:39 PM 04:39 PM MON [EOD] Narrative 01/17/2017 4:43 PM COMPLIANCE SPECIALIST EXAMINATION: ??CT head with and without contrast. HISTORY: ??History of breast cancer. ??Follow-up. ??Dizziness as well for the last 3 months. COMPARISON: ??None available. TECHNIQUE: ??Contiguous axial CT images of the head were obtained both before and after the intravenous administration of 100 mL of Omnipaque 350 contrast material into the right antecubital fossa. ??Automated exposure control techniques were utilized for dose optimization. FINDINGS: ??Noncontrast images fail to demonstrate evidence of acute intracranial hemorrhage, midline shift or mass effect. ??There are no extra-axial fluid collections identified. ??Ventricles are acutely normal in size and position. ??Dense basal ganglia calcifications are present bilaterally. ??No acute or chronic paranasal sinus disease is present. ??There are no calvarial fractures. ??No destructive osseous abnormalities. ??No fluid is seen within the mastoid air cells. ??There is no sizable scalp hematoma. ?? Globes are intact. ??Following the intravenous administration of intravenous contrast, no evidence of any enhancing masses are present to suggest metastatic disease. ??No obvious aneurysms are noted. Procedure Note Provider, MD Almita - 07/28/2020 EXAMINATION: CT head with and without contrast. HISTORY: History of breast cancer. Follow-up. Dizziness as well for the last 3 months. COMPARISON: None available. TECHNIQUE: Contiguous axial CT images of the head were obtained bothbefore and after the intravenous administration of 100 mL of Omnipaque 350contrast material into the right antecubital fossa. Automated exposure control techniques were utilized for dose optimization. FINDINGS: Noncontrast images fail to demonstrate evidence of acute intracranial hemorrhage, midline shift or mass effect. There are no extra-axial fluid collections identified. Ventricles are acutely normalin size and position. Dense basal ganglia calcifications are present bilaterally. No acute or chronic paranasal sinus disease is present.There are no calvarial fractures. No destructive osseous abnormalities. Nofluid is seen within the mastoid air cells. There is no sizable scalp hematoma. Globes are intact. Following the intravenous administration ofintravenous contrast, no evidence of any enhancing masses are present to suggest metastatic disease. No obvious aneurysms are noted. IMPRESSION: 1. No acute intracranial hemorrhage, midline shift or mass effect. 2. No evidence of metastatic disease to the brain. No abnormal areas of enhancement are appreciated. Automated exposure control was used as a dose optimization technique forthis examination. THIS IS AN ELECTRONICALLY VERIFIED REPORT 01/17/2017 4:39 PM: Harlan Schuler D.O. Harlan Schuler D.O. DW:[place] 04:39 PM 04:39 PM MON [EOD] us Damon DunbarTesha Kiki DO IMG CT PROCEDURES Final Resu lt * CT Chest W Contrast (01/17/2017 12:00 AM COMPLIANCE SPECIALIST) Anatomical Region Laterality Modality Body N/A Computed Tomogra phy 01/17/2017 Impressions 01/17/2017 4:39 PM COMPLIANCE SPECIALIST ?? 1. ??Fluid collection seen within the posterolateral right breast soft tissues just anterior to the pectoralis musculature. ??Findings could represent seroma or even abscess in the appropriate clinical setting and continued follow-up is recommended. ??This would be amenable to percutaneous aspiration via ultrasound guidance if indicated. 2. ??There is an additional incompletely evaluated large fluid collection seen within the subcutaneous fat just anterior to the ventral abdominal wall. ??This was present on the July 27 and again could represent a simple fluid collection such as a seroma or potentially an abscess. ??Again, this would be amenable to percutaneous aspiration under ultrasound guidance. 3. ??No evidence of metastatic disease in the chest or abdomen. 4. ??Moderate pericardial effusion. 5. ??Gastroesophageal reflux. 6. ??Areas of scarring and atelectasis in the lungs without evidence of focal pneumonia, pleural effusion or pneumothorax. 7. ??Possible pancreatic body lesion versus slightly enhancing asymmetric and heterogeneous pancreatic tissue. ??Pancreatic MRI recommended for further evaluation. Automated exposure control was used as a dose optimization technique for this examination. THIS IS AN ELECTRONICALLY VERIFIED REPORT 01/17/2017 4:35 PM: ??Harlan Schuler D.O. ?? Harlan Schuler D.O. DW:[place] 04:35 PM 04:35 PM MON [EOD] Narrative 01/17/2017 4:39 PM COMPLIANCE SPECIALIST EXAMINATION: ??CT chest and abdomen with contrast. HISTORY: ??Breast cancer follow-up. ??Restaging exam. ??Dizziness as well. ?? Dizziness has been present for 3 months. ?? section. ??Umbilical hernia. COMPARISON: ??CT most recently dated 10/18/16. TECHNIQUE: ??Contiguous axial CT images of the chest and abdomen were obtained, following the intravenous administration of 100 mL of Omnipaque 350 contrast material into the right antecubital fossa. ??Oral contrast was also administered. ??Sagittal and coronal reformatted images were acquired and reviewed. ??Automated exposure control techniques were utilized for dose optimization. FINDINGS: ?? Chest: ??In the right lateral breast soft tissues, just anterior to the pectoralis musculature, there is a sizable focal fluid collection measuring 5.5 x 6.6 cm in AP and transverse diameters respectively. ??The fluid seen within this hypoattenuating collection is simple, measuring less than 20 Hounsfield units. ??Findings could represent postoperative seroma or even abscess in the appropriate setting. ??Follow-up recommended. ??Mild bilateral breast skin thickening. There is a moderate pericardial effusion. ??The heart size is at the upper limits of normal to mildly enlarged. ??There is gastroesophageal reflux. ?? Calcified and noncalcified mediastinal and hilar lymph nodes are present. ??No overt lymphadenopathy in the chest. ??No axillary lymphadenopathy. ??There are clips in the left axilla. ??There are areas of linear scarring and atelectasis in the lungs. ??Dependent atelectatic changes are also noted. ??There is no focal pneumonia, pleural effusion or pneumothorax present. ??No suspicious pulmonary nodules or masses are present to suggest metastatic disease to the lungs. ??The central airways are clear. ??There is no bronchial wall thickening or mucus plugging present. Abdomen: ??No sizable hiatal hernia. ??Atherosclerotic aorta without aneurysmal dilatation. Stomach is filled with oral contrast and is unremarkable as seen. ?? There are no adrenal masses present. ??There is a somewhat hyperattenuating but heterogeneous rounded density seen in the region of the pancreatic body on axial image 45, medially adjacent to the lesser curvature of the stomach, measuring about 1.3 cm. ??While this simply may represent heterogeneous pancreatic material, a pancreatic neoplastic process cannot be excluded pancreatic protocol MRI is recommended for further evaluation. ??No acute pancreatitis. ??Calcified splenic granulomas. ??Tiny accessory spleen. ??No cholelithiasis. ??There are no suspicious hepatic masses. ??No evidence of metastatic disease is present within the abdomen. ??No abdominal lymphadenopathy. ??Portal venous structures are patent. ??Origins of the celiac artery, superior mesenteric artery and renal arteries are patent as well. ??The kidneys enhance symmetrically. ??No nephrolithiasis or obstructive uropathy. ?? There are no enhancing renal masses. ??Visualized ureters are normal as well. ?? There is evidence of prior surgery involving the ventral abdominal/pelvic wall. ??Just anterior to this, there is a large rounded fluid collection seen with a thin enhancing rim, measuring 8.0 x 10.1 cm in AP and transverse dimensions respectively. ??Again, this could represent a seroma or potentially an abscess. ??It is not completely visualized on today's images. ??This would be amenable to percutaneous drainage. ??It was present on the examination from 10/18/16. Bones: ??Thoracic and lumbosacral spondylosis. ??No acute or destructive osseous abnormalities are appreciated. Procedure Note Provider, MD Almita - 07/28/2020 EXAMINATION: CT chest and abdomen with contrast. HISTORY: Breast cancer follow-up. Restaging exam. Dizziness as well. Dizziness has been present for 3 months. section. Umbilicalhernia. COMPARISON: CT most recently dated 10/18/16. TECHNIQUE: Contiguous axial CT images of the chest and abdomen wereobtained, following the intravenous administration of 100 mL of Omnipaque 350contrast material into the right antecubital fossa. Oral contrast was also administered. Sagittal and coronal reformatted images were acquired and reviewed. Automated exposure control techniques were utilized for dose optimization. FINDINGS: Chest: In the right lateral breast soft tissues, just anterior to the pectoralis musculature, there is a sizable focal fluid collectionmeasuring 5.5 x 6.6 cm in AP and transverse diameters respectively. The fluid seen within this hypoattenuating collection is simple, measuring less than 20 Hounsfield units. Findings could represent postoperative seroma or even abscess in the appropriate setting. Follow-up recommended. Mildbilateral breast skin thickening. There is a moderate pericardial effusion. The heart size is at the upper limits of normal to mildly enlarged. There is gastroesophageal reflux. Calcified and noncalcified mediastinal and hilar lymph nodes are present.No overt lymphadenopathy in the chest. No axillary lymphadenopathy. Thereare clips in the left axilla. There are areas of linear scarring andatelectasis in the lungs. Dependent atelectatic changes are also noted. There is no focal pneumonia, pleural effusion or pneumothorax present. No suspicious pulmonary nodules or masses are present to suggest metastatic disease tothe lungs. The central airways are clear. There is no bronchial wallthickening or mucus plugging present. Abdomen: No sizable hiatal hernia. Atherosclerotic aorta withoutaneurysmal dilatation. Stomach is filled with oral contrast and is unremarkable asseen. There are no adrenal masses present. There is a somewhat hyperattenuatingbut heterogeneous rounded density seen in the region of the pancreatic body on axial image 45, medially adjacent to the lesser curvature of the stomach, measuring about 1.3 cm. While this simply may represent heterogeneous pancreatic material, a pancreatic neoplastic process cannot be excluded pancreatic protocol MRI is recommended for further evaluation. No acute pancreatitis. Calcified splenic granulomas. Tiny accessory spleen. No cholelithiasis. There are no suspicious hepatic masses. No evidence of metastatic disease is present within the abdomen. No abdominal lymphadenopathy. Portal venous structures are patent. Origins of theceliac artery, superior mesenteric artery and renal arteries are patent as well.The kidneys enhance symmetrically. No nephrolithiasis or obstructiveuropathy. There are no enhancing renal masses. Visualized ureters are normal aswell. There is evidence of prior surgery involving the ventral abdominal/pelvic wall. Just anterior to this, there is a large rounded fluid collectionseen with a thin enhancing rim, measuring 8.0 x 10.1 cm in AP and transverse dimensions respectively. Again, this could represent a seroma orpotentially an abscess. It is not completely visualized on today's images. Thiswould be amenable to percutaneous drainage. It was present on the examination from 10/18/16. Bones: Thoracic and lumbosacral spondylosis. No acute or destructiveosseous abnormalities are appreciated. IMPRESSION: 1. Fluid collection seen within the posterolateral right breast softtissues just anterior to the pectoralis musculature. Findings could representseroma or even abscess in the appropriate clinical setting and continuedfollow-up is recommended. This would be amenable to percutaneous aspiration viaultrasound guidance if indicated. 2. There is an additional incompletely evaluated large fluid collectionseen within the subcutaneous fat just anterior to the ventral abdominal wall.This was present on the July 27 and again could represent a simple fluidcollection such as a seroma or potentially an abscess. Again, this would be amenableto percutaneous aspiration under ultrasound guidance. 3. No evidence of metastatic disease in the chest or abdomen. 4. Moderate pericardial effusion. 5. Gastroesophageal reflux. 6. Areas of scarring and atelectasis in the lungs without evidence offocal pneumonia, pleural effusion or pneumothorax. 7. Possible pancreatic body lesion versus slightly enhancing asymmetricand heterogeneous pancreatic tissue. Pancreatic MRI recommended for further evaluation. Automated exposure control was used as a dose optimization technique forthis examination. THIS IS AN ELECTRONICALLY VERIFIED REPORT 01/17/2017 4:35 PM: Harlan Schuler D.O. Harlan Schuler D.O. DW:[place] 04:35 PM 04:35 PM MON [EOD] Damon Swanson DO IMG CT PROCEDURES Final Resu lt documented in this encounter Visit Diagnoses Diagnosis Dizziness and giddiness Personal history of malignant neoplasm of breast Encounter for follow-up examination after completed treatment for malignant neoplasm documented in this encounter
--- OUTSIDE RECORDS SUMMARY | 2024-02-26 21:39 | XMS_ITS | Encounter Summary ---
Author Organization [facility] Healthcare Address [address] [place] [address] Care Team Providers Care Dental Insurance Biller Name Role Phone Unavailable Primary Care Provider Unavailabl e Encounter Details Date Type Department Care Team (Latest Contact Info) Description 10/30/2012 1:38 PM CDT Hospital Encounter [facility] Rene Fowler MD [address] [place] [id number] Malignant neoplasm of breast (female) (HCC) Social History Tobacco Use Types Packs/Day Years Used Date Smoking Tobacco: Never Assessed Comments Unknown Sex and Gender Information Value Date Recorded Sex Assigned at Not on file Legal Sex Female 12:30 PM [employer] Gender Identity Not on file Sexual Orientation Not on file documented as of this encounter Plan of Treatment Not on file documented as of this encounter Procedures Procedure Name Priority Date/Time Associated Diagnosis Comments DIAGNOSTIC MAMMOGRAM 2D BILATERAL Routine 10/30/2012 1:40 PM CDT GENERAL RADIOLOGY REPORT 10/30/2012 12:00 AM CDT documented in this encounter Results * Diagnostic Mammogram 2D Bilateral (10/30/2012 1:40 PM CDT) Anatomical Region Laterality Modality Breast Bilateral Mammography 10/30/2012 1:40 PM CDT Impressions 10/30/2012 3:12 PM CDT ?? 1. ??Stable post-treatment changes of the right breast with unchanged upper outer quadrant seroma/hematoma. ??Given documented two year mammographic stability of the right breast post-treatment changes, it is recommended that patient return to annual right mammography. 2. ??Probably benign post-treatment changes of the left breast, grossly stable dating back to April 2011. ??Continued short-term surveillance with left diagnostic mammography in 6 months is recommended. The findings were communicated to the patient in clinic. ??A result letter will be mailed to the patient. Assessment: ??Birads 3 - probably benign findings. ??Short-term follow-up recommended. THIS IS AN ELECTRONICALLY VERIFIED REPORT 10/30/2012 3:06 PM: ??Edwar Deng M.D. Edwar Deng M.D. MD: 03:06 PM 03:06 PM [facility] [EOD] Narrative 10/30/2012 3:12 PM CDT EXAMINATION: ??Bilateral digital diagnostic mammogram using CAD. HISTORY: ??57-year-old female presents for short-term surveillance of both breasts. ??Patient had initial bilateral invasive ductal carcinoma status post bilateral lumpectomies in October 2010 with subsequent chemotherapy and radiation therapy. Subsequent excision of the left upper outer quadrant lumpectomy site on 04/29/2011 demonstrated invasive ductal carcinoma with negative margins. ??Chronic right breast fluid collection status post multiple aspirations. COMPARISON: ??Prior exams dated 04/26/2012, 10/25/2011, 04/29/2011, 03/25/2011, and 10/29/2010. FINDINGS: ??Full field CC, XCCL, MLO, and true lateral views of both breasts were obtained. ??The breast tissue is predominantly fatty replaced. Reidentified within the posterior third, upper outer right breast is a 7.4 cm round circumscribed hyperdense mass, which corresponds with the patient's known postsurgical fluid collection. ??This fluid collection has not significantly changed in size since the exam dated 04/26/2012. ??Mild skin and trabecular thickening of the right breast appears slightly less prominent compared with the most recent prior study. ??No suspicious mass or calcifications are seen within the right breast. Moderate left breast skin and trabecular thickening does not appear significantly changed from 04/26/2012. ??No suspicious left breast mass or calcifications are identified. Procedure Note Provider, MD Almita - 07/28/2020 EXAMINATION: Bilateral digital diagnostic mammogram using CAD. HISTORY: 57-year-old female presents for short-term surveillance of both breasts. Patient had initial bilateral invasive ductal carcinoma statuspost bilateral lumpectomies in October 2010 with subsequent chemotherapy and radiation therapy. Subsequent excision of the left upper outer quadrant lumpectomy site on 04/29/2011 demonstrated invasive ductal carcinoma with negative margins. Chronic right breast fluid collection status postmultiple aspirations. COMPARISON: Prior exams dated 04/26/2012, 10/25/2011, 04/29/2011, 03/25/2011,and 10/29/2010. FINDINGS: Full field CC, XCCL, MLO, and true lateral views of bothbreasts were obtained. The breast tissue is predominantly fatty replaced. Reidentified within the posterior third, upper outer right breast is a 7.4cm round circumscribed hyperdense mass, which corresponds with the patient's known postsurgical fluid collection. This fluid collection has not significantly changed in size since the exam dated 04/26/2012. Mild skinand trabecular thickening of the right breast appears slightly less prominent compared with the most recent prior study. No suspicious mass or calcifications are seen within the right breast. Moderate left breast skin and trabecular thickening does not appear significantly changed from 04/26/2012. No suspicious left breast mass or calcifications are identified. IMPRESSION: 1. Stable post-treatment changes of the right breast with unchanged upper outer quadrant seroma/hematoma. Given documented two year mammographic stability of the right breast post-treatment changes, it is recommendedthat patient return to annual right mammography. 2. Probably benign post-treatment changes of the left breast, grosslystable dating back to April 2011. Continued short-term surveillance with left diagnostic mammography in 6 months is recommended. The findings were communicated to the patient in clinic. A result letterwill be mailed to the patient. Assessment: Birads 3 - probably benign findings. Short-term follow-up recommended. THIS IS AN ELECTRONICALLY VERIFIED REPORT 10/30/2012 3:06 PM: Edwar Deng M.D. Edwar Deng M.D. MD: 03:06 PM 03:06 PM [facility] [EOD] Rene MONTERO MAMMO PROCEDURES Final Result * GENERAL RADIOLOGY REPORT (10/30/2012 12:00 AM CDT) Anatomical Region Laterality Modality Radiographic Sylvia ging Narrative 10/30/2012 12:00 AM CDT Ordered by an unspecified provider. Historical Provider MD MONTERO XR PROCEDURES Final R esult documented in this encounter Visit Diagnoses Diagnosis Malignant neoplasm of breast (female) (HCC) Malignant neoplasm of breast (female), unspecified site documented in this encounter
--- OUTSIDE RECORDS SUMMARY | 2024-02-26 21:39 | XMS_ITS | Encounter Summary ---
Author Organization [facility] Healthcare Address [address] [place] [address] Care Team Providers Care Carbon Furnace Operator Helper Name Role Phone Zeke Puente MD Primary Care Provider [phone] Damon Swanson DO Unavailable [phone] Encounter Details Date Type Department Care Team (Latest Contact Info) Description 04/11/2018 11:27 AM GUIDANCE DIRECTOR - 04/11/2018 6:23 PM GUIDANCE DIRECTOR Hospital Encounter [address] [address] [address] [address] Discharge Disposition: Discharge to home or self care Social History Tobacco Use Types Packs/Day Years Used Date Smoking Tobacco: Never Smokeless Tobacco: Never Alcohol Use Standard Drinks/Week Comments No 0 (1 standard drink = 0.6 oz pur e alcohol) Comments Unknown Sex and Gender Information Value Date Recorded Sex Assigned at Not on file Legal Sex Female 12:30 PM GUIDANCE DIRECTOR Gender Identity Not on file Sexual Orientation Not on file documented as of this encounter Last Filed Vital Signs Vital Sign Reading Time Taken Comments Blood Pressure 159/119 04/11/2018 11:32 AM GUIDANCE DIRECTOR Pulse 64 04/11/2018 11:32 AM GUIDANCE DIRECTOR Temperature 36.7 ??C (98 ??F) 04/11/2018 11:32 AM GUIDANCE DIRECTOR Respiratory Rate - - Oxygen Saturation 96% 04/11/2018 11:32 AM GUIDANCE DIRECTOR Inhaled Oxygen Concentration - - Weight 90.7 kg (200 lb) 04/11/2018 11:32 AM GUIDANCE DIRECTOR Height 157.5 cm (5' 2 ) 04/11/2018 11:32 AM GUIDANCE DIRECTOR Body Mass Index 36.58 04/11/2018 11:32 AM GUIDANCE DIRECTOR documented in this encounter Medications at Time of Discharge amLODIPine (NORVASC) 10 mg tablet 0 08/09/2017 06/17/19 21 atorvastatin (LIPITOR) 80 mg tablet 0 08/08/2017 11/20/19 20 donepezil (ARICEPT) 5 mg tabletIndicatio ns:memory Take 1 tablet (5 mg total) by mouth nightly. 30 tablet 3 10/30/2017 11/20/19 20 gabapentin (NEURONTIN) 100 mg capsule Take by mouth 3 (three) times a day. 0 19 insulin glargine (LANTUS U-100 INSULIN) 100 unit/mL injection 03/21/2017Lantus, inj 100/ml Vial (ml)sub-Qas directedCurrent Medication 03/21/2017 11/20/19 20 lisinopril (PRINIVIL,ZESTR IL) 20 mg tablet 0 08/09/2017 11/20/19 20 documented as of this encounter Discharge Disposition Disposition Code Departure Means Destination Discharge to home or self care documented in this encounter Plan of Treatment Not on file documented as of this encounter Procedures Procedure Name Priority Date/Time Associated Diagnosis Comments CBC WITH AUTO DIFFERENTIAL Routine 04/11/2018 1:31 PM GUIDANCE DIRECTOR B-TYPE NATRIURETIC PEPTIDE Routine 04/11/2018 1:31 PM GUIDANCE DIRECTOR COMPREHENSIVE METABOLIC PANEL Routine 04/11/2018 1:31 PM GUIDANCE DIRECTOR XR CHEST 1 VIEW Routine 04/11/2018 1:15 PM GUIDANCE DIRECTOR XR ABDOMEN ERECT AND OR DECUBITS 2 VIEWS Routine 04/11/2018 12:00 AM GUIDANCE DIRECTOR US VEIN DUPLEX LOWER EXTREMITY BILATERAL COMPLETE Routine 04/11/2018 12:00 AM GUIDANCE DIRECTOR documented in this encounter Results * (ABNORMAL) Comprehensive metabolic panel (04/11/2018 1:31 PM GUIDANCE DIRECTOR) Sodium 137 135 - 145 mmol/L 04/11/2018 1:[address] [facility] HISTORICAL RESULTS Potassium 3.3 3.3 - 5.1 mmol/L 04/11/2018 1:[address] [facility] HISTORICAL RESULTS Chloride 93(L) 96 - 108 mmol/L 04/11/2018 1:[address] [facility] HISTORICAL RESULTS Carbon Dioxide 32 22 - 32 mmol/L 04/11/2018 1:[address] [facility] HISTORICAL RESULTS Anion Gap 12 7 - 16 04/11/2018 1:[address] [facility] HISTORICAL RESULTS Glucose 290(H) 70 - 100 mg/dL 04/11/2018 1:[address] [facility] HISTORICAL RESULTS BUN 18 8 - 23 mg/dL 04/11/2018 1:[address] [facility] HISTORICAL RESULTS Creatinine 0.7 0.5 - 1.1 mg/dL 04/11/2018 1:[address] [facility] HISTORICAL RESULTS Comment: NOTE: Estimated GFR (Cockroft-Gault) will NOT be calculated unless patient Height and Weight were entered. Also, Kidney Disease Stage (GFR) and Estimated GFR (Cockroft-Gault) will NOT be calculated if Creatinine result is <0.2. Kidney Disease Stage > 90 mL/MIN 04/11/2018 1:[address] [facility] HISTORICAL RESULTS Comment: NOTE; ??The GFR is an estimated [...] mL/min ? Kidney failure or on dialysis @ Est GFR (Cockcroft-G) 86 ml/MIN 04/11/2018 1:[address] [facility] HISTORICAL RESULTS Comment: Estimated GFR(Cockroft-Gault)is used to calculate patient medication dosage Calcium 9.2 8.8 - 10.2 mg/dL 04/11/2018 1:[address] [facility] HISTORICAL RESULTS Total Protein 7.6 6.4 - 8.3 g/dL 04/11/2018 1:[address] [facility] HISTORICAL RESULTS Albumin 4.2 3.5 - 5.2 g/dL 04/11/2018 1:[address] [facility] HISTORICAL RESULTS Globulin 3.4 2.3 - 3.5 gm/dL 04/11/2018 1:[address] [facility] HISTORICAL RESULTS Albumin/Globulin Ratio 1.2 1.1 - 1.8 04/11/2018 1:[address] [facility] HISTORICAL RESULTS Total Bilirubin 1.0 0.0 - 1.2 mg/dL 04/11/2018 1:[address] [facility] HISTORICAL RESULTS AST 26 0 - 32 U/L 04/11/2018 1:[address] [facility] HISTORICAL RESULTS ALT 18 0 - 33 U/L 04/11/2018 1:[address] [facility] HISTORICAL RESULTS Alkaline Phosphatase 53 35 - 104 U/L 04/11/2018 1:[address] [facility] HISTORICAL RESULTS 04/11/2018 1:31 PM GUIDANCE DIRECTOR 04/11/2018 1:34 PM GUIDANCE DIRECTOR us Tomi GONZALEZ LAB BLOOD ORDERABLES Fi nal Result [facility] HISTORICAL RESULTS * (ABNORMAL) CBC with auto differential (04/11/2018 1:31 PM GUIDANCE DIRECTOR) WBC 4.4 3.8 - 9.9 X10 3/ul 04/11/2018 1:39 PM [facility] RBC 3.72(L) 3.90 - 5.20 x10 6/ul 04/11/2018 1:[address] [facility] HISTORICAL RESULTS Hemoglobin 11.2(L) 11.9 - 15.5 g/dL 04/11/2018 1:[address] [facility] HISTORICAL RESULTS Hct 33.6(L) 35.6 - 45.5 % 04/11/2018 1:[address] [facility] HISTORICAL RESULTS MCV 90.3 81.3 - 96.4 fl 04/11/2018 1:[address] [facility] HISTORICAL RESULTS MCH 30.1 27.1 - 33.3 pg 04/11/2018 1:39 PM [facility] HIST[facility] RESULTS MCHC 33.3 32.3 - 35.7 g/dl 04/11/2018 1:39 PM [facility] HIST[facility] RESULTS RDW 14.0 11.1 - 14.9 % 04/11/2018 1:39 PM [facility] HIST[facility] RESULTS Plt Count 175 150 - 400 x10 3/ul 04/11/2018 1:39 PM [facility] HIST[facility] RESULTS MPV 10.7 9.1 - 12.3 fl 04/11/2018 1:39 PM [facility] RESULTS Neut % 69.1 % 04/11/2018 1:39 PM [facility] RES[facility] Immature Gran % 0.2 % 9 1:39 PM [facility] HIST[facility] RESULTS Lymph % 21.7 % 04/11/2018 1:39 PM [facility] HISTOR[facility] RESULTS [place] % 7.1 % 04/11/2018 1:39 PM [facility] HIST[facility] RESULTS Eos % 1.4 % 04/11/2018 1:39 PM [facility] HIST[facility] RESULTS Baso % 0.5 % 04/11/2018 1:39 PM [facility] RESULTS Absolute Neuts (auto) 3.0 1.7 - 6.5 x10 3/ul 04/11/2018 1:39 PM [facility] HIST[facility] RESULTS Immature Gran # 0.0 0.0 - 0.1 x10 3/ul 04/11/2018 1:39 PM GUIDANCE DIRECTOR [facility] HISTORICAL RESULTS Absolute Lymphs (auto) 1.0 0.8 - 3.3 x10 3/ul 04/11/2018 1:39 PM GUIDANCE DIRECTOR [facility] HISTORICAL RESULTS Absolute Monos (auto) 0.3 0.2 - 0.8 x10 3/ul 04/11/2018 1:39 PM GUIDANCE DIRECTOR [facility] HISTORICAL RESULTS Absolute Eos (auto) 0.1 0.0 - 0.5 x10 3/ul 04/11/2018 1:39 PM GUIDANCE DIRECTOR [facility] HISTORICAL RESULTS Absolute Basos (auto) 0.0 0.0 - 0.1 x10 3/ul 04/11/2018 1:[address] [facility] HISTORICAL RESULTS Nucleat RBC Rel Count 0.0 #/100WBC 04/11/2018 1:[address] [facility] HISTORICAL RESULTS Absolute Nucleated RBC 0.00 0.00 - 0.01 x10 3/ul 04/11/2018 1:39 PM GUIDANCE DIRECTOR [facility] HISTORICAL RESULTS Absolute Neutrophils 3000 200 - 8000 /ul 04/11/2018 1:[address] [facility] HISTORICAL RESULTS 04/11/2018 1:31 PM GUIDANCE DIRECTOR 04/11/2018 1:34 PM [facility] Tomi GONZALEZ LAB BLOOD ORDERABLES Fi nal Result [facility] HISTORICAL RESULTS * B-type natriuretic peptide (04/11/2018 1:31 PM [facility]) B-Natriuretic Peptide 23 0 - 100 pg/mL 04/11/2018 2:16 PM GUIDANCE DIRECTOR [facility] HISTORICAL RESULTS Comment: B Natriutetic Peptide METHOD: ??Siemens OG-Vegasaur XP using MIESHA. Decision threshold of 100 pg/mL has been demonstrated to provide the maximal combination of sensitivity, specificity, and predictive value for the diagnosis of congestive heart failure (CHF). ??Virtually all patients with no evidence of CHF have BNP values <100 pg/mL. ?? NOTE: ??Nesiritide (Natrecor) interferes with the BNP assay. BNP result will be invalid if drawn within 2 hours of bolus or infusion of nesiritide. 04/11/2018 1:31 PM GUIDANCE DIRECTOR 04/11/2018 1:34 PM GUIDANCE DIRECTOR Tomi GONZALEZ LAB BLOOD ORDERABLES Fi nal Result [facility] HISTORICAL RESULTS * XR Chest 1 View (04/11/2018 1:15 PM GUIDANCE DIRECTOR) Anatomical Region Laterality Modality Body, Chest N/A Radiographic Sylvia ging 04/11/2018 1:15 PM GUIDANCE DIRECTOR Impressions 04/11/2018 1:47 PM GUIDANCE DIRECTOR ?? 1.No focal consolidation. ??No pneumothorax. ??No pleural effusion. 2.Redemonstration of mild cardiomegaly, similar in size to cardiac silhouette on 11/18/[address] chest performed same day demonstrating associated moderate pericardial effusion. ??If clinically warranted, echocardiography can be performed for further evaluation of pericardial effusion and any associated cardiac compromise. THIS IS AN ELECTRONICALLY VERIFIED FINAL REPORT 04/11/2018 1:44 PM - Electronically signed by Yoandy Iverson M.D. AMALIA D: ??04/11/2018 1:44 PM T: Report ID: [id number] Reading Location: ??[id number] [EOD] Narrative 04/11/2018 1:47 PM GUIDANCE DIRECTOR EXAM DESCRIPTION: ??Chest 1 View Portable REASON FOR STUDY: ??Acute shortness of breath since last night. ??Both legs swollen, discolored, gradual onset over past 3 days, weakness, sob starting last night TECHNIQUE: ??Frontal radiographic view of the chest acquired. COMPARISON: ??Chest radiograph 04/09/2018 and 11/18/[address] chest without contrast 11/18/2017 FINDINGS: LUNGS/PLEURA: No focal consolidation. ??No pneumothorax. ??No pleural effusion. HEART/MEDIASTINUM: Redemonstrated is mild cardiomegaly, similar in size to cardiac silhouette on November [address] chest performed same day demonstrating associated moderate pericardial effusion. ??Calcific atherosclerosis of thoracic aorta. ??Redemonstration of a calcified right paratracheal lymph nodes. HARDWARE/LINES/TUBES: None. BONES: No acute findings. OTHER: Left axillary surgical clips. Procedure Note Provider, MD Almita - 07/28/2020 EXAM DESCRIPTION: Chest 1 View Portable REASON FOR STUDY: Acute shortness of breath since last night. Both legs swollen, discolored, gradual onset over past 3 days, weakness, sobstarting last night TECHNIQUE: Frontal radiographic view of the chest acquired. COMPARISON: Chest radiograph 04/09/2018 and 11/18/[address] chestwithout contrast 11/18/2017 FINDINGS: LUNGS/PLEURA: No focal consolidation. No pneumothorax. No pleuraleffusion. HEART/MEDIASTINUM: Redemonstrated is mild cardiomegaly, similar in size to cardiac silhouette on November [address] chest performed sameday demonstrating associated moderate pericardial effusion. Calcific atherosclerosis of thoracic aorta. Redemonstration of a calcified right paratracheal lymph nodes. HARDWARE/LINES/TUBES: None. BONES: No acute findings. OTHER: Left axillary surgical clips. IMPRESSION: 1.No focal consolidation. No pneumothorax. No pleural effusion. 2.Redemonstration of mild cardiomegaly, similar in size to cardiacsilhouette on 11/18/[address] chest performed same day demonstratingassociated moderate pericardial effusion. If clinically warranted, echocardiographycan be performed for further evaluation of pericardial effusion and anyassociated cardiac compromise. THIS IS AN ELECTRONICALLY VERIFIED FINAL REPORT 04/11/2018 1:44 PM - Electronically signed by Yoandy HOLLAND T: Report ID: [id number] Reading Location: [id number] [EOD] us Tomi GONZALEZ IMG XR PROCEDURES Final Result * US Vein Duplex Lower Extremity Bilateral Complete (04/11/2018 12:00 AM GUIDANCE DIRECTOR) Anatomical Region Laterality Modality Vascular Bilateral Ultrasound 04/11/2018 Impressions 04/16/2018 7:37 AM GUIDANCE DIRECTOR ??Negative for deep vein thrombosis, bilateral lower extremities. NTS Job: [id number] Dictated By: Librado Nguyễn MD Dictated For: Librado ??MD Gopi [EOD] Narrative 04/16/2018 7:37 AM GUIDANCE DIRECTOR DATE OF SERVICE: 04/11/2018 REASON FOR EXAM: ??Pain. COMMENTS ON THE RIGHT: ??Veins throughout the right lower extremity show spontaneous and phasic flow with normal augmentation . They are competent and compressible. COMMENTS ON THE LEFT: ??Veins throughout the left lower extremity show spontaneous and phasic flow with normal augmentation. ??They are competent and compressible. OVERALL Procedure Note Provider, MD Almita - 07/28/2020 DATE OF SERVICE: 04/11/2018 REASON FOR EXAM: Pain. COMMENTS ON THE RIGHT: Veins throughout the right lower extremity showspontaneous and phasic flow with normal augmentation . They are competentand compressible. COMMENTS ON THE LEFT: Veins throughout the left lower extremity showspontaneous and phasic flow with normal augmentation. They are competentand compressible. OVERALL IMPRESSION: Negative for deep vein thrombosis, bilateral lowerextremities. NTS Job: [id number] Dictated By: Librado Nguyễn MD Dictated For: Librado Nguyễn MD [EOD] us Tomi GONZALEZ IMG US PROCEDURES Final Result * XR Abdomen Erect and or Decubitus 2 Views (04/11/2018 12:00 AM GUIDANCE DIRECTOR) Anatomical Region Laterality Modality Body, Abdomen N/A Radiographic Sylvia ging 04/11/2018 Impressions 04/11/2018 5:30 PM GUIDANCE DIRECTOR ??Nonobstructive bowel gas pattern. ??No significant retained fecal material. THIS IS AN ELECTRONICALLY VERIFIED FINAL REPORT 04/11/2018 5:27 PM - Electronically signed by Bryant Camargo M.D. AT D: ??04/11/2018 5:27 PM T: Report ID: [id number] Reading Location: ??[id number] [EOD] Narrative 04/11/2018 5:30 PM GUIDANCE DIRECTOR EXAM DESCRIPTION: ??Abdomen 2 Views REASON FOR STUDY: ??Abdominal pain for 1 week TECHNIQUE: ??2 supine and a single upright abdominal radiograph were obtained COMPARISON: ??None available FINDINGS: No free intraperitoneal air is identified. ??Imaged lung bases appear clear. ?? 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 ??Arthritic changes of the pubic symphysis are noted as well. ??Gas and stool is evident within the large intestine to the level of the rectum. ??Postoperative changes of prior hernia repair are noted. ??No air-fluid levels are identified. ??No significantly distended loops of small bowel are seen. Procedure Note Provider, MD Almita - 07/28/2020 EXAM DESCRIPTION: Abdomen 2 Views REASON FOR STUDY: Abdominal pain for 1 week TECHNIQUE: 2 supine and a single upright abdominal radiograph wereobtained COMPARISON: None available FINDINGS: No free intraperitoneal air is identified. Imaged lung bases appearclear. There are moderate osteoarthritic changes of the spine and hips.Arthritic changes of the pubic symphysis are noted as well. Gas and stool isevident within the large intestine to the level of the rectum. Postoperativechanges of prior hernia repair are noted. No air-fluid levels are identified. No significantly distended loops of small bowel are seen. IMPRESSION: Nonobstructive bowel gas pattern. No significant retainedfecal material. THIS IS AN ELECTRONICALLY VERIFIED FINAL REPORT 04/11/2018 5:27 PM - Electronically signed by Bryant Camargo M.D. AT T: Report ID: [id number] Reading Location: [place] [id number] [EOD] Tomi GONZALEZ IMG XR PROCEDURES Final Result documented in this encounter Visit Diagnoses Not on filedocumented in this encounter Care Teams Carbon Furnace Operator Helper Relationship Specialty Start Date End Date Zeke Puente MD [address] [place] [address] PCP - General 07/10/17 06/11/18 Damon Swanson DO [address] [place] [id number] Medical Oncologist/Facilities Coordinator Hematology and Oncology 10/25/17 documented as of this encounter
--- OUTSIDE RECORDS SUMMARY | 2024-02-26 21:39 | XMS_ITS | Encounter Summary ---
Author Organization 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 Hospital Encounter [facility] Damon Swanson, DO [address] [id number] Malignant neoplasm of female breast (CMS/HCC); Other spondylosis, thoracic region; Noninflammatory pericardial effusion Social History Tobacco Use Types Packs/Day Years Used Date Smoking Tobacco: Never Assessed Comments Unknown Sex and Gender Information Value Date Recorded Sex Assigned at Not on file Legal Sex Female 12:30 PM CUSTOM SHOE DESIGNER AND MAKER Gender Identity Not on file Sexual Orientation Not on file documented as of this encounter Plan of Treatment Not on file documented as of this encounter Procedures Procedure Name Priority Date/Time Associated Diagnosis Comments CT ABDOMEN W CONTRAST Routine 03/24/2016 12:00 AM CUSTOM SHOE DESIGNER AND MAKER CT CHEST W CONTRAST Routine 03/24/2016 1 2:00 AM CUSTOM SHOE DESIGNER AND MAKER documented in this encounter Results * CT Abdomen W Contrast (03/24/2016 12:00 AM CUSTOM SHOE DESIGNER AND MAKER) Anatomical Region Laterality Modality Body N/A Computed Tomogra phy 03/24/2016 Narrative 03/25/2016 8:24 AM CUSTOM SHOE DESIGNER [employer] MAKER CT scan of the abdomen with intravenous contrast. History breast cancer restaging examination. Exam is compared 09/21/15 TECHNIQUE: ??Patient received 100 mL Omnipaque 350 into right AC no complication Findings: There is no focal liver mass identified. ??No cholecystitis. ??The adrenal glands are unremarkable. ??The kidneys demonstrate no hydronephrosis. ??Spleen is normal. ??Pancreas is within normal limits. There is a fluid collection in the subcutaneous tissues which is stable measuring about 10 cm x 8 cm in size. Impression No evidence of metastatic disease within the abdomen. Stable subcutaneous round fluid collection. ??This likely represents a seroma. Automated exposure control was used as a dose optimization technique for this examination. THIS IS AN ELECTRONICALLY VERIFIED REPORT 03/25/2016 8:21 AM: ??Arsen Claros M.D. ?? Arsen Claros M.D. NC:garo 08:21 AM 08:21 AM [facility] [EOD] Procedure Note Provider, MD Almita - 07/28/2020 CT scan of the abdomen with intravenous contrast. History breast cancer restaging examination. Exam is compared 09/21/15 TECHNIQUE: Patient received 100 mL Omnipaque 350 into right AC nocomplication Findings: There is no focal liver mass identified. No cholecystitis. The adrenal glands are unremarkable. The kidneys demonstrate no hydronephrosis.Spleen is normal. Pancreas is within normal limits. There is a fluid collection in the subcutaneous tissues which is stable measuring about 10 cm x 8 cm in size. Impression No evidence of metastatic disease within the abdomen. Stable subcutaneous round fluid collection. This likely represents aseroma. Automated exposure control was used as a dose optimization technique forthis examination. THIS IS AN ELECTRONICALLY VERIFIED REPORT 03/25/2016 8:21 AM: Arsen Claros M.D. Arsen Claros M.D. NC:garo 08:21 AM 08:21 AM [facility] [EOD] us Damon Swanson DO IMG CT PROCEDURES Final Resu lt * CT Chest W Contrast (03/24/2016 12:00 AM CUSTOM SHOE DESIGNER AND MAKER) Anatomical Region Laterality Modality Body N/A Computed Tomogra phy 03/24/2016 Narrative 03/25/2016 8:18 AM CUSTOM SHOE DES[employer]ER [employer] MAKER CT scan chest with IV contrast History breast cancer restaging exam Comparison 09/21/15 Technique the patient received 100 mL of Omnipaque 350 to the right AC no complication. Findings: There is a small to moderate pericardial effusion which was seen on the prior exam. No infiltrates or consolidation. No pulmonary nodules. No evidence of metastatic disease within the chest. ??Old granulomatous disease noted within the mediastinum. Thoracic spine spondylosis. Impression: ??No evidence of metastatic disease. ??Small to moderate pericardial effusion. ??Thoracic spine spondylosis. Automated exposure control was used as a dose optimization technique for this examination. THIS IS AN ELECTRONICALLY VERIFIED REPORT 03/25/2016 8:15 AM: ??Arsen Claros M.D. ?? Arsen Claros M.D. NC:garo 08:15 AM 08:15 AM [facility] [EOD] Procedure Note Provider, MD Almita - 07/28/2020 CT scan chest with IV contrast History breast cancer restaging exam Comparison 09/21/15 Technique the patient received 100 mL of Omnipaque 350 to the right AC no complication. Findings: There is a small to moderate pericardial effusion which was seen on theprior exam. No infiltrates or consolidation. No pulmonary nodules. No evidence of metastatic disease within the chest. Old granulomatousdisease noted within the mediastinum. Thoracic spine spondylosis. Impression: No evidence of metastatic disease. Small to moderatepericardial effusion. Thoracic spine spondylosis. Automated exposure control was used as a dose optimization technique forthis examination. THIS IS AN ELECTRONICALLY VERIFIED REPORT 03/25/2016 8:15 AM: Arsen Claros M.D. Arsen Claros M.D. NC:nc 08:15 AM 08:15 AM [facility] [EOD] Damon wSanson DO IMG CT PROCEDURES Final Resu lt documented in this encounter Visit Diagnoses Diagnosis Malignant neoplasm of female breast (HCC) Malignant neoplasm of breast (female), unspecified site Other spondylosis, thoracic region Noninflammatory pericardial effusion Unspecified disease of pericardium documented in this encounter
--- OUTSIDE RECORDS SUMMARY | 2024-02-26 21:39 | XMS_ITS | Encounter Summary ---
Author Organization [facility] Healthcare Address [address] [place] [id number] Care Team Providers Care Director Integrated Name Role Phone Unavailable Primary Care Provider Unavailabl e Encounter Details Date Type Department Care Team (Latest Contact Info) Description 08/01/2013 8:45 AM CDT Hospital Encounter [facility] OP Damon Swanson, DO [address] [id number] Malignant neoplasm of breast (female) (HCC) Social History Tobacco Use Types Packs/Day Years Used Date Smoking Tobacco: Never Assessed Comments Unknown Sex and Gender Information Value Date Recorded Sex Assigned at Not on file 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 1. ??Stable examination with no evidence of metastatic disease in the chest. 2. ??Unchanged right breast seroma. 3. ??Unchanged thickening of the thoracic esophagus. 4. ??Sequela of old granulomatous disease. 5. ??See separate dictated CT of the abdomen. THIS IS AN ELECTRONICALLY VERIFIED REPORT 08/01/2013 9:13 PM: ??Martinez Miguel M.D. Martinez Miguel M.D. CH:giuliana 04:44 PM 05:02 PM [facility] [EOD] Narrative 08/01/2013 10:15 PM CDT EXAMINATION: ??CT chest with contrast HISTORY: ??Breast cancer 174.9. ??Breast cancer June 2010 status post chemotherapy and radiation. EXAMINATION: ??For restaging. TECHNIQUE: ??Following intravenous administration of 100 mL Omnipaque 350 intravenous contrast via the right antecubital vein and 40 ounces of oral contrast postcontrast images were obtained through the chest. COMPARISON: ??See separately dictated CT the abdomen. Skin thickening in the bilateral breasts is again noted. ??A right lateral breast seroma is again seen, not significantly changed measured at 6.2 x 5.1 cm, changes from the prior exam likely due to compressibility of the fluid. ?? No pathologic axillary adenopathy. No abnormal internal mammary, mediastinal, or hilar adenopathy. ??Sequela of old granulomatous disease is noted with calcified right paratracheal and subcarinal lymph nodes. Heart is mildly enlarged but unchanged. ??Coronary artery calcification is again seen. Small hiatal hernia is noted and there is mild thickening of the esophagus, unchanged. Surgical clips are again seen in the left axilla. No incidental filling defects in the central pulmonary arteries. ??Thoracic aorta is unchanged. Periosteophytic atelectasis is again noted in the right lower lobe. ??Mild respiratory motion limits evaluation for small pulmonary nodules. ??No suspicious pulmonary nodules are seen. ??There is a linear band of opacity in the left upper lobe oriented from anterior to posterior which is unchanged and may reflect sequela of prior radiation. ??No pleural or pericardial effusion. Bone windows are unchanged with no new acute or aggressive appearing osseous abnormalities. Procedure Note Provider, MD Almita - 07/28/2020 EXAMINATION: CT chest with contrast HISTORY: Breast cancer 174.9. Breast cancer June 2010 status post chemotherapy and radiation. EXAMINATION: For restaging. TECHNIQUE: Following intravenous administration of 100 mL Omnipaque 350 intravenous contrast via the right antecubital vein and 40 ounces of oral contrast postcontrast images were obtained through the chest. COMPARISON: See separately dictated CT the abdomen. Skin thickening in the bilateral breasts is again noted. A right lateral breast seroma is again seen, not significantly changed measured at 6.2 x5.1 cm, changes from the prior exam likely due to compressibility of thefluid. No pathologic axillary adenopathy. No abnormal internal mammary, mediastinal, or hilar adenopathy. Sequelaof old granulomatous disease is noted with calcified right paratracheal and subcarinal lymph nodes. Heart is mildly enlarged but unchanged. Coronary artery calcification is again seen. Small hiatal hernia is noted and there is mild thickening of theesophagus, unchanged. Surgical clips are again seen in the left axilla. No incidental filling defects in the central pulmonary arteries. Thoracic aorta is unchanged. Periosteophytic atelectasis is again noted in the right lower lobe. Mild respiratory motion limits evaluation for small pulmonary nodules. No suspicious pulmonary nodules are seen. There is a linear band of opacityin the left upper lobe oriented from anterior to posterior which is unchangedand may reflect sequela of prior radiation. No pleural or pericardialeffusion. Bone windows are unchanged with no new acute or aggressive appearingosseous abnormalities. IMPRESSION: 1. Stable examination with no evidence of metastatic disease in thechest. 2. Unchanged right breast seroma. 3. Unchanged thickening of the thoracic esophagus. 4. Sequela of old granulomatous disease. 5. See separate dictated CT of the abdomen. THIS IS AN ELECTRONICALLY VERIFIED REPORT 08/01/2013 9:13 PM: Martinez Miguel M.D. Martinez Miguel M.D. CH:giuliana 04:44 PM 05:02 PM [facility] [EOD] us Damon Swanson DO IMG CT PROCEDURES Final Resu lt * CT Abdomen W Contrast (08/01/2013 9:00 AM CDT) Anatomical Region Laterality Modality Body N/A Computed Tomogra phy 08/01/2013 9:00 AM CDT Impressions 08/01/2013 10:15 PM CDT ?? 1. ??Stable appearance of the abdomen with no evidence of metastatic disease. 2. ??See separate dictated CT of the chest. 3. ??Unchanged fat containing supraumbilical and small bowel containing periumbilical hernias. THIS IS AN ELECTRONICALLY VERIFIED REPORT 08/01/2013 9:13 PM: ??Martinez Miguel M.D. Martinez Miguel M.D. CH:giuliana 04:38 PM 04:59 PM [facility] [EOD] Narrative 08/01/2013 10:15 PM CDT EXAMINATION: ??CT abdomen with contrast HISTORY: ??Breast cancer June 2010 status post chemotherapy and radiation. TECHNIQUE: ??Following intravenous administration of 100 mL Omnipaque 350 intravenous contrast via the right antecubital vein and 48 ounces of oral contrast postcontrast images were obtained through the abdomen and pelvis. COMPARISON: ??05/02/2013. FINDINGS: ??See separate dictated CT the chest. Abdomen: ??Liver, gallbladder, spleen, pancreas, and both adrenal glands are normal. ??Tiny low attenuation right renal lesion is unchanged. ??Left extrarenal pelvis is noted. ??No pathologic adenopathy in the upper abdomen. ?? Appendix is included and appears normal. ?? Two ventral hernias are again seen, supraumbilical predominantly fat-containing with soft tissue density along the right lateral margin and more inferiorly a partially imaged umbilical hernia which likely contains a small knuckle of small bowel and soft tissue density. ??No evidence of obstruction. Included bone windows demonstrate no acute or aggressive appearing osseous lesions. Procedure Note Provider, MD Almita - 07/28/2020 EXAMINATION: CT abdomen with contrast HISTORY: Breast cancer June 2010 status post chemotherapy andradiation. TECHNIQUE: Following intravenous administration of 100 mL Omnipaque 350 intravenous contrast via the right antecubital vein and 48 ounces of oral contrast postcontrast images were obtained through the abdomen andpelvis. COMPARISON: 05/02/2013. FINDINGS: See separate dictated CT the chest. Abdomen: Liver, gallbladder, spleen, pancreas, and both adrenal glandsare normal. Tiny low attenuation right renal lesion is unchanged. Left extrarenal pelvis is noted. No pathologic adenopathy in the upperabdomen. Appendix is included and appears normal. Two ventral hernias are again seen, supraumbilical predominantly fat-containing with soft tissue density along the right lateral margin and more inferiorly a partially imaged umbilical hernia which likely containsa small knuckle of small bowel and soft tissue density. No evidence of obstruction. Included bone windows demonstrate no acute or aggressive appearing osseous lesions. IMPRESSION: 1. Stable appearance of the abdomen with no evidence of metastaticdisease. 2. See separate dictated CT of the chest. 3. Unchanged fat containing supraumbilical and small bowel containing periumbilical hernias. THIS IS AN ELECTRONICALLY VERIFIED REPORT 08/01/2013 9:13 PM: Martinez Miguel M.D. Martinez Miguel M.D. CH:giuliana 04:38 PM 04:59 PM [facility] [EOD] Damon Swanson DO IMG CT PROCEDURES Final Resu lt documented in this encounter Visit Diagnoses Diagnosis Malignant neoplasm of breast (female) (HCC) Malignant neoplasm of breast (female), unspecified site documented in this encounter
--- OUTSIDE RECORDS SUMMARY | 2024-02-26 21:39 | XMS_ITS | Encounter Summary ---
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 female breast (CMS/HCC) Social History Tobacco Use Types Packs/Day Years Used Date Smoking Tobacco: Never Assessed Comments Unknown Sex and Gender Information Value Date Recorded Sex Assigned at Not on file 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 Gender Identity Not on file Sexual Orientation Not on file documented as of this encounter Medications at Time of Discharge insulin glargine (LANTUS U-100 INSULIN) 100 unit/mL injection 03/21/2017Lantus, inj 100/ml Vial (ml)sub-Qas directedCurrent Medication 03/21/2017 11/20/19 20 documented as of this encounter Plan of Treatment Not on file documented as of this encounter Procedures Procedure Name Priority Date/Time Associated Diagnosis Comments CT ABDOMEN W CONTRAST Routine 07/24/2017 12:[address] CHEST W CONTRAST Routine 07/24/2017 1 2:00 AM CDT documented in this encounter Results * CT Abdomen W Contrast (07/24/2017 12:00 AM CDT) Anatomical Region Laterality Modality Body N/A Computed Tomogra phy 07/24/2017 Impressions 07/25/2017 8:32 AM CDT ?? 1.Incompletely evaluated fluid collection within the subcutaneous tissues of the anterior abdominal wall, stable dating back to September 2015, most likely representing a seroma. 2.Hepatic steatosis. 3.Moderate pericardial effusion, stable. 4.Pancreatic parenchyma stable in appearance dating back to September 2015. ??1.3 cm heterogeneous area visualized on the most recent prior study is not clearly demonstrated on this examination. THIS IS AN ELECTRONICALLY VERIFIED FINAL REPORT 07/25/2017 8:28 AM - Electronically signed by Kathy Contreras M.D. TB: TB D: ??07/25/2017 8:28 AM T: ??07/25/2017 8:28 AM Report ID: [id number] Reading Location: ??[id number] [EOD] Narrative 07/25/2017 8:32 AM CDT EXAM DESCRIPTION: ??CT Abd W IV Contrast COMPLETED DATE/TIME: ??07/24/2017 11:43 am REASON FOR STUDY: ??BREAST CANCER RESTAGING TECHNIQUE: ??CT scan of the abdomen performed with intravenous and with oral contrast using helical scanning technique with dynamic intravenous contrast injection. Reconstructed coronal and sagittal MPR images reviewed. All images stored on PACS. ??Automated exposure control was used as a dose optimization technique for this examination. CONTRAST TYPE/DOSE: ??100 mL of Optiray 350contrast were intravenously injected at the right antecubital COMPARISON: ??01/17/2017, 10/18/2016, 08/30/2016, 08/01/2016, 09/21/2015 FINDINGS: ABDOMEN: LOWER CHEST: There is a moderate pericardial effusion, stable. ??There is atherosclerotic calcification of the thoracic aorta. ??There are atelectatic changes noted within the lung bases. LIVER: There is diffuse fatty infiltration of the liver. ??No discrete hepatic mass. GALLBLADDER: No stones identified. No wall thickening or inflammatory changes. BILE DUCTS: No intrahepatic or extrahepatic ductal dilatation. SPLEEN: Granulomatous calcifications, without focal mass. PANCREAS: No discrete mass is delineated. ??The 1.3 cm area of heterogeneity associated with the body of the pancreas on the most recent prior examination is not clearly delineated on the current examination. ??The pancreas in this region is similar in appearance dating back to September 2015. ??There is no peripancreatic inflammation. ADRENALS: Normal. KIDNEYS/URINARY TRACT: Kidneys enhance symmetrically. ??No obstructing urolithiasis. ??No suspicious renal mass. GI: No dilated bowel loops. No obvious wall thickening. ??Normal appendix. ??No significant diverticular disease. PERITONEUM: No ascites or free air. RETROPERITONEUM: No mass or adenopathy. VASCULATURE:Atherosclerotic calcification of the aorta without aneurysm. MUSCULOSKELETAL: There is thoracic and lumbar spondylosis. ??No acute osseous abnormality OTHER: There is a fluid collection noted within the subcutaneous tissues of the anterior abdominal wall, measuring up to 8.0 by 10.0 cm (image 90). ??Given the enters both stability compared to multiple prior examinations, this most likely represents a seroma. ??Postsurgical changes are noted in the anterior abdominal wall immediately posterior to this. Procedure Note Provider, MD Almita - 07/28/2020 EXAM DESCRIPTION: CT Abd W IV Contrast COMPLETED DATE/TIME: 07/24/2017 11:43 am REASON FOR STUDY: BREAST CANCER RESTAGING TECHNIQUE: CT scan of the abdomen performed with intravenous and withoral contrast using helical scanning technique with dynamic intravenouscontrast injection. Reconstructed coronal and sagittal MPR images reviewed. Allimages stored on PACS. Automated exposure control was used as a doseoptimization technique for this examination. CONTRAST TYPE/DOSE: 100 mL of Optiray 350contrast were intravenouslyinjected at the right antecubital COMPARISON: 01/17/2017, 10/18/2016, 08/30/2016, 08/01/2016, 09/21/2015 FINDINGS: ABDOMEN: LOWER CHEST: There is a moderate pericardial effusion, stable. There is atherosclerotic calcification of the thoracic aorta. There areatelectatic changes noted within the lung bases. LIVER: There is diffuse fatty infiltration of the liver. No discretehepatic mass. GALLBLADDER: No stones identified. No wall thickening or inflammatorychanges. BILE DUCTS: No intrahepatic or extrahepatic ductal dilatation. SPLEEN: Granulomatous calcifications, without focal mass. PANCREAS: No discrete mass is delineated. The 1.3 cm area ofheterogeneity associated with the body of the pancreas on the most recent priorexamination is not clearly delineated on the current examination. The pancreas inthis region is similar in appearance dating back to September 2015. There is no peripancreatic inflammation. ADRENALS: Normal. KIDNEYS/URINARY TRACT: Kidneys enhance symmetrically. No obstructing urolithiasis. No suspicious renal mass. GI: No dilated bowel loops. No obvious wall thickening. Normal appendix.No significant diverticular disease. PERITONEUM: No ascites or free air. RETROPERITONEUM: No mass or adenopathy. VASCULATURE:Atherosclerotic calcification of the aorta without aneurysm. MUSCULOSKELETAL: There is thoracic and lumbar spondylosis. No acuteosseous abnormality OTHER: There is a fluid collection noted within the subcutaneous tissuesof the anterior abdominal wall, measuring up to 8.0 by 10.0 cm (image 90).Given the enters both stability compared to multiple prior examinations, thismost likely represents a seroma. Postsurgical changes are noted in theanterior abdominal wall immediately posterior to this. IMPRESSION: 1.Incompletely evaluated fluid collection within the subcutaneous tissuesof the anterior abdominal wall, stable dating back to September 2015, most likely representing a seroma. 2.Hepatic steatosis. 3.Moderate pericardial effusion, stable. 4.Pancreatic parenchyma stable in appearance dating back to September 2015.1.3 cm heterogeneous area visualized on the most recent prior study is notclearly demonstrated on this examination. THIS IS AN ELECTRONICALLY VERIFIED FINAL REPORT 07/25/2017 8:28 AM - Electronically signed by Kathy Contreras M.D. TB: TB Report ID: [id number] Reading Location: [id number] [EOD] Damon Swanson DO IMG CT PROCEDURES Final Resu lt * CT Chest W Contrast (07/24/2017 12:00 AM CDT) Anatomical Region Laterality Modality Body N/A Computed Tomogra phy 07/24/2017 Impressions 07/25/2017 8:18 AM CDT ?? 1.Stable moderate pericardial effusion. 2.Fluid collection within the anterior right breast tissue, superficial to the pectoralis muscle, likely a seroma, stable. 3.No suspicious pulmonary nodularity. ??Linear opacity in the left apex, stable. 4.Postinflammatory calcifications. THIS IS AN ELECTRONICALLY VERIFIED FINAL REPORT 07/25/2017 8:15 AM - Electronically signed by Kathy Contreras M.D. TB: TB D: ??07/25/2017 8:15 AM T: ??07/25/2017 8:15 AM Report ID: [id number] Reading Location: ??[id number] [EOD] Narrative 07/25/2017 8:18 AM CDT EXAM DESCRIPTION: ??CT Chest W IV Contrast COMPLETED DATE/TIME: ??07/24/2017 11:43 am REASON FOR STUDY: ??BREAST CANCER RESTAGING TECHNIQUE: ??CT scan of the chest performed with intravenous contrast using helical scanning technique with dynamic intravenous contrast injection. ?? Reconstructed coronal and sagittal MPR images reviewed. All images stored on PACS. Automated exposure control was used as a dose optimization technique for this examination. CONTRAST TYPE/DOSE: ??100 mL of Optiray 350 contrast were intravenously injected at the right antecubital. COMPARISON: ??01/17/2017, 10/18/2016, 08/30/2016, 03/24/2016 FINDINGS: LUNGS: Linear opacity within the left apex has remained stable compared to multiple prior examinations. ??There is mild atelectasis noted at the lung bases, similar to the prior examinations. ??There is no suspicious pulmonary nodularity. ??No consolidation. ?? PLEURA: No effusion. No pneumothorax. MEDIASTINUM/TAYLOR: There is a large granulomatous calcification within the pretracheal and right paratracheal space. ??Several other scattered postinflammatory calcifications are noted, including being present within the subcarinal space. ??Thoracic aorta is normal in caliber. ??There is atherosclerotic calcification noted. ??There is no lymphadenopathy. ??The heart is borderline enlarged. ??There is a pericardial effusion, stable. ??The esophagus is somewhat thick walled in its mid and distal portions, however, has not changed significantly compared to the prior examinations. ??Upper endoscopy or upper GI can be utilized for further evaluation. HEART: Heart size is at the upper limits of normal. ??There is a stable moderate pericardial effusion. VASCULATURE: No thoracic aortic aneurysm. AXILLA: No adenopathy. CHEST WALL: In the right chest wall, anterior to the pectoralis musculature, a fluid collection is again noted, measuring approximately 5.6 x 6.5 cm, likely a postoperative seroma. ??This has remained stable in size. ??There is mild skin thickening involving both breasts, which is grossly stable compared to the prior examination. HARDWARE/LINES/TUBES: None. UPPER ABDOMEN: No significant abnormality. MUSCULOSKELETAL: Thoracic and cervical spondylosis is noted. ??No aggressive appearing osseous lesion. OTHER: No other significant abnormality. Procedure Note Provider, MD Almita - 07/28/2020 EXAM DESCRIPTION: CT Chest W IV Contrast COMPLETED DATE/TIME: 07/24/2017 11:43 am REASON FOR STUDY: BREAST CANCER RESTAGING TECHNIQUE: CT scan of the chest performed with intravenous contrast using helical scanning technique with dynamic intravenous contrast injection. Reconstructed coronal and sagittal MPR images reviewed. All images storedon PACS. Automated exposure control was used as a dose optimization techniquefor this examination. CONTRAST TYPE/DOSE: 100 mL of Optiray 350 contrast were intravenously injected at the right antecubital. COMPARISON: 01/17/2017, 10/18/2016, 08/30/2016, 03/24/2016 FINDINGS: LUNGS: Linear opacity within the left apex has remained stable compared to multiple prior examinations. There is mild atelectasis noted at the lung bases, similar to the prior examinations. There is no suspiciouspulmonary nodularity. No consolidation. PLEURA: No effusion. No pneumothorax. MEDIASTINUM/TAYLOR: There is a large granulomatous calcification within the pretracheal and right paratracheal space. Several other scattered postinflammatory calcifications are noted, including being present withinthe subcarinal space. Thoracic aorta is normal in caliber. There is atherosclerotic calcification noted. There is no lymphadenopathy. Theheart is borderline enlarged. There is a pericardial effusion, stable. The esophagus is somewhat thick walled in its mid and distal portions,however, has not changed significantly compared to the prior examinations. Upper endoscopy or upper GI can be utilized for further evaluation. HEART: Heart size is at the upper limits of normal. There is a stable moderate pericardial effusion. VASCULATURE: No thoracic aortic aneurysm. AXILLA: No adenopathy. CHEST WALL: In the right chest wall, anterior to the pectoralismusculature, a fluid collection is again noted, measuring approximately 5.6 x 6.5 cm,likely a postoperative seroma. This has remained stable in size. There is mildskin thickening involving both breasts, which is grossly stable compared to the prior examination. HARDWARE/LINES/TUBES: None. UPPER ABDOMEN: No significant abnormality. MUSCULOSKELETAL: Thoracic and cervical spondylosis is noted. Noaggressive appearing osseous lesion. OTHER: No other significant abnormality. IMPRESSION: 1.Stable moderate pericardial effusion. 2.Fluid collection within the anterior right breast tissue, superficial tothe pectoralis muscle, likely a seroma, stable. 3.No suspicious pulmonary nodularity. Linear opacity in the left apex, stable. 4.Postinflammatory calcifications. THIS IS AN ELECTRONICALLY VERIFIED FINAL REPORT 07/25/2017 8:15 AM - Electronically signed by Kathy Contreras M.D. TB: TB Report ID: [id number] Reading Location: [place] [id number] [EOD] Damon Swanson DO IMG CT PROCEDURES Final Resu lt documented in this encounter Visit Diagnoses Diagnosis Malignant neoplasm of upper-outer quadrant of right female breast (HCC) documented in this encounter Care Teams Refrigerator Assembler Relationship Specialty Start Date End Date Zeke Puente MD [address] [place] [address] PCP - General 07/10/17 06/11/18 documented as of this encounter
--- OUTSIDE RECORDS SUMMARY | 2024-02-26 21:39 | XMS_ITS | Encounter Summary ---
Author Organization [facility] Address [address] [place] [address] Phone Care Team Providers Care Cutter Wet Machine Name Role Phone Annamaria Mosqueda DO Unavailable [phone] Precious Shelton MD Primary Care Provider [phone] Reason for Visit * Reason Comments Follow-up Encounter Details Date Type Department Care Team (Late st Contact Info) Description 06/12/2018 1:00 PM CDT Office Visit [facility] Oncology [address] [place] [id number] Annamaria Mosqueda, DO [facility] [address] Malignant neoplasm of upper-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, estrogen receptor negative (CMS/HCC) (Primary Dx); Malignant neoplasm of left breast in female, estrogen receptor negative, unspecified site of breast (CMS/HCC) Social History Tobacco Use Types Packs/Day Years Used Date Smoking Tobacco: Never Smokeless Tobacco: Never Alcohol Use Standard Drinks/Week Comments No 0 (1 standard drink = 0.6 oz pur e alcohol) Comments Unknown Sex and Gender Information Value Date Recorded Sex Assigned at Not on file 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 Gender Identity Not on file Sexual Orientation Not on file documented as of this encounter Last Filed Vital Signs Vital Sign Reading Time Taken Comments Blood Pressure 149/82 06/12/2018 1:19 PM CDT Pulse 80 06/12/2018 1:19 PM CDT Temperature 36.7 ??C (98 ??F) 06/12/2018 1:19 PM CDT Respiratory Rate 18 06/12/2018 1:19 PM CDT Oxygen Saturation 99% 06/12/2018 1:19 PM CDT Inhaled Oxygen Concentration - - Weight 95.3 kg (210 lb) 06/12/2018 1:19 PM CDT Height 154.9 cm (5' 1 ) 06/12/2018 1:19 PM CDT Body Mass Index 39.68 06/12/2018 1:19 PM CDT documented in this encounter Patient Instructions * Patient Instructions* Liseth Skelton, SPENCER - 06/12/2018 1:[address] PRECIOUS SHELTON [address] [place] [address] PHONE # [phone] PLEASE CALL FOR AN APPOINTMENT documented in this encounter Ordered Prescriptions Prescription Sig Dispense Quantity Refills Last Filled Start Date End Date potassium chloride ER (KLOR-CON,K-DUR) 10 mEq CR tablet Take 2 tablet/capsu le (20 mEq total) by mouth daily 60 tablet/capsule 2 06/12/2018 11/20/2019 furosemide (LASIX) 40 mg tablet Take 1 tablet (40 mg total) by mouth daily 30 tablet 2 06/12/2018 09/10/2018 documented in this encounter Progress Notes * Annamaria Mosqueda DO - 06/12/2018 1:00 PM CDT Patient ID: Iris Pascual is a 63 y.o. female. Primary Care Provider: Precious Shelton MD Assessment/Plan 1. Bilateral breast cancers. Clinically, I do not find any evidence of recurrent disease. She remains on active surveillance. I will see her back in 6 months with repeat examination and laboratory assessment. 2. Dementia. On Aricept 5 mg daily. 3. Chronic seroma of the right breast. She will continue with conservative measures. 4. Diffuse arthralgias due to underlying advanced arthritis. She will continue with spmr-cil-uguyzhn medications. 5. 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 Etiology is probably due to underlying diabetes that is not controlled well since her glucose todayis 440. She will continue with gabapentin 100 mg t.i.d. And can titrate upward to tolerance. She also continue with Requip for her myalgias. 6. Increasing lower leg edema. Lasix 20 mg daily did somewhat improve her swelling. I will increasethe dose up to 40 mg daily and also give her potassium chloride 20 mEq daily. Patient Active Problem List Diagnosis ??? Malignant neoplasm of upper-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, estrogen receptor negative (CMS/HCC) Cancer Staging Information: Cancer Staging No matching staging information was found for the patient. Diagnoses and all orders for this visit: Malignant neoplasm of upper-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, estrogen receptor negative (CMS/HCC) (Primary) - Clinic Appointment Request Follow up; ANNAMARIA MOSQUEDA MD; [facility] - Amb[facility] referral to [facility]; Future - Lab Draw Appt Request Arm Draw or Central Line Draw? Arm; What is your ordering location? [facility]; Where will this patient receive treatment? [facility]; Future - Clinic Appointment Request Follow up; ANNAMARIA MOSQUEDA MD; [facility]; Future - Cancer antigen 15-3; Future - CBC with auto differential; Future - Comprehensive metabolic panel; Future Malignant neoplasm of left breast in female, estrogen receptor negative, unspecified site of breast(CMS/HCC) - Clinic Appointment Request Follow up; ANNAMARIA MOSQUEDA MD; [facility] - Ambulatory referral to [facility]; Future - Lab Draw Appt Request Arm Draw or Central Line Draw? Arm; What is your ordering location? [facility]; Where will this patient receive treatment? [facility]; [facility] - Clinic Appointment Request Follow up; ANNAMARIA MOSQUEDA MD; [facility]; Future - Cancer antigen 15-3; Future - CBC with auto differential; Future - Comprehensive metabolic panel; Future Other orders - furosemide (LASIX) 40 mg tablet; Take 1 tablet (40 mg total) by mouth daily - potassium chloride ER (KLOR-CON,K-DUR) 10 mEq CR tablet; Take 2 tablet/capsule (20 mEq total) by mouth daily Subjective Interval History: 1. 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 2. 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 3. In 2010, she presented with enlarging left breast mass along with erythema and edema of this skin. Biopsy at that time showed inflammatory breast cancer. 4. Due to the large size of tumor and aggressive biology, I proceed with preoperative chemotherapy.She underwent 6 cycles of Taxotere, cyclophosphamide and Adriamycin completing the therapy in February of 2011. 5. After the neoadjuvant chemotherapy was completed patient had a very good clinical response. Dr. Fowler then performed bilateral lumpectomies and lymph node dissections in 2011. She then underwent adjuvant radiation therapy to both breasts / chest zamora finishing in July of 2011. 6. Patient has remain in a complete remission ever since that time. 7. Chronic seroma of the right breast. This has been stable 8. Chronic sensory neuropathy involving the fingertips, toes and feet. She seems to be tolerating Neurontin 100 mg t.i.d. -- today, c/o increasing parasthesia of feet left> right; went to ER - US of legs; muscle cramps / sharp intermittent pain; 9. Progressive dementia. She is currently on Aricept 5 mg daily 10. She returns for her monthly follow-up visit with me still complaining of severe burning pain and paresthesias of both feet. Last month I started her on Requip and Lasix for lower leg edema. Interval Notes: I have reviewed: allergies, current medications, past family history, past medical history, past social history, past surgical history and problem list HPI Review of Systems Constitutional: Positive for fatigue and malaise. Negative for appetite change, chills and fever. HENT: Positive for sore throat and dry mouth. Eyes: Negative. Respiratory: Negative. Negative for cough and shortness of breath. Cardiovascular: Positive for leg swelling and peripheral swelling. Negative for chest pain. Gastrointestinal: Negative. Endocrine: Negative. Genitourinary: Positive for frequency. Musculoskeletal: Positive for arthralgias, back pain, gait problem (uses cane) and myalgias. Skin: Positive for itching, rash and dryness. Neurological: Positive for extremity weakness, gait problem (uses cane), numbness and peripheral neuropathy (Lower legs). Hematological: Bruises/bleeds easily. Psychiatric/Behavioral: Positive for confusion, decreased concentration and sleep disturbance. Pain: Positive for: new onset pain. Objective Physical Exam: Vital Signs for this encounter: BSA: 2.03 meters squared BP 149/82 (BP Location: Right arm) Pulse 80 Temp 36.7 ??C (98 ??F) (Oral) Resp 18 Ht 154.9 cm (5' 1 ) Wt 95.3 kg (210 lb) SpO2 99% BMI 39.68 kg/m?? Physical Exam Constitutional: She is oriented to person, place, and time. She appears well- developed and well-nourished. HENT: Head: Normocephalic and atraumatic. Right Ear: External ear normal. Left Ear: External ear normal. Nose: Nose normal. Mouth/Throat: Oropharynx is clear and moist. Eyes: Pupils are equal, round, and reactive to light. Conjunctivae and EOM are normal. Neck: Normal range of motion. Neck supple. Cardiovascular: Normal rate, regular rhythm, normal heart sounds and intact distal pulses. Pulmonary/Chest: Effort normal and breath sounds normal. She exhibits edema (right breast). Right breast exhibits mass (seroma without change). There is breast swelling. Abdominal: Soft. Bowel sounds are normal. Genitourinary: There is breast swelling. Musculoskeletal: She exhibits edema (pitting edema of ankles, feet, and distal tibias) and deformity ( bilateral knee). Right knee: She exhibits decreased range of motion. Left knee: She exhibits decreased range of motion. Neurological: She is alert and oriented to person, place, and time. A sensory deficit (Bilateral feet) is present. She exhibits abnormal muscle tone (lower legs). Gait (unsteady but controlled with cane) abnormal. Skin: Skin is warm and dry. Rash (erythematous maculopapular lesions on lower legs with crusty cores) noted. There is pallor. Psychiatric: She has a normal mood and affect. Her behavior is normal. She exhibits abnormal recentmemory. Performance Status: Symptomatic; fully ambulatory Results: WBC Date Value Ref Range Status 06/12/2018 3.7 3.4 - 10.8 x10E3/uL Final Hgb Date Value Ref Range Status 06/12/2018 11.2 11.1 - 15.9 g/dL Final Hct Date Value Ref Range Status 06/12/2018 33.4 (L) 34.0 - 46.6 % Final Platelets Date Value Ref Range Status 06/12/2018 196 150 - 379 x10E3/uL Final Creatinine, Serum Date Value Ref Range Status 06/12/2018 0.78 0.57 - 1.00 mg/dL Final AST Date Value Ref Range Status 06/12/2018 19 0 - 40 IU/L Final documented in this encounter Plan of Treatment Scheduled Orders Name Type Priority Associated Diagnoses Orde r Schedule Cancer antigen 15-3 Lab Routine Malignant neoplasm of upper-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, estrogen receptor negative (CMS/HCC) Malignant neoplasm of left breast in female, estrogen receptor negative, unspecified site of breast (CMS/HCC) Expected: 12/11/2018, Expires: 06/13/2019 CBC with auto differential Lab Routine Malignant neoplasm of upper-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, estrogen receptor negative (CMS/HCC) Malignant neoplasm of left breast in female, estrogen receptor negative, unspecified site of breast (CMS/HCC) Expected: 12/11/2018, Expires: 06/13/2019 Comprehensive metabolic panel Lab Routine Malignant neoplasm of upper-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, estrogen receptor negative (CMS/HCC) Malignant neoplasm of left breast in female, estrogen receptor negative, unspecified site of breast (CMS/HCC) Expected: 12/11/2018, Expires: 06/13/2019 documented as of this encounter Visit Diagnoses Diagnosis Malignant neoplasm of upper-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, estrogen receptor negative (HCC)- Primary Malignant neoplasm of left breast in female, estrogen receptor negative, unspecified site of breast (HCC) documented in this encounter Discontinued Medications Medication Sig Discontinue Reason Start Date End Da te furosemide (LASIX) 20 mg tablet Take 1 tablet (20 mg total) by mouth daily. Reorder 05/15/2018 06/12/2018 documented as of this encounter Orders Appointment Requests Count Last Ordered Date Fi rst Ordered Date ONCBCN CLINIC APPOINTMENT REQUEST 1 019 documented in this encounter Care Teams Cutter Wet Machine Relationship Specialty Start Date End Date Precious Shelton MD [address] [address] PCP - General Family Medicine 06/12/18 12/01/18 Annamaria Mosqueda DO [address] [place] [address] Medical Oncologist/Assistant Coach Hematology and Oncology 10/25/17 documented as of this encounter
--- OUTSIDE RECORDS SUMMARY | 2024-02-26 21:39 | XMS_ITS | Encounter Summary ---
Author Organization [facility] Address [address] [place] [address] Phone Care Team Providers Care Makeup Sales Advisor Name Role Phone Zeke Puente MD Primary Care Provider [phone] Damon Swanson DO Unavailable [phone] Encounter Details Date Type Department Care Team (Late st Contact Info) Description 10/30/2017 Orders Only [facility] Oncology [address] 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 Gender Identity Not on file Sexual Orientation Not on file documented as of this encounter Plan of Treatment Not on file documented as of this encounter Procedures Procedure Name Priority Date/Time Associated Diagnosis Comments CBC WITH AUTO DIFFERENTIAL Routine 10/30/2017 11:54 AM CDT documented in this encounter Results * (ABNORMAL) CBC with auto differential (10/30/2017 11:54 AM CDT) WBC 3.4 3.4 - 10.8 x10E3/uL [facility] - 01 RBC 3.39(L) 3.77 - 5.28 x10E6/uL [facility] - 01 Hgb 10.6(L) 11.1 - 15.9 g/dL [facility] - 01 Hct 31.3(L) 34.0 - 46.6 % [facility] - 01 MCV 92 79 - 97 fL [facility] - 01 MCH 31.3 26.6 - 33.0 pg [facility] - 01 MCHC 34.0 31.5 - 35.7 g/dL [facility] - 01 Rdw 15.5(H) 12.3 - 15.4 % [facility] - 01 Platelets 192 150 - 379 x10E3/uL [facility] - 01 Neutrophils pct 32 Not Estab. % [facility] - 01 Lymphs pct 43 Not Estab. % [facility] - 01 Monocytes pct 23 Not Estab. % [facility] - 01 Eosinophils pct 2 Not Estab. % [facility] - 01 Basophil pct 0 Not Estab. % [facility] - 01 Neutrophil abs 1.1(L) 1.4 - 7.0 x10E3/uL [facility] - 01 Lymphs (Absolute) 1.4 0.7 - 3.1 x10E3/uL [facility] - 01 Monocyte abs 0.8 0.1 - 0.9 x10E3/uL [facility] - 01 Eosinophils, abs 0.1 0.0 - 0.4 x10E3/uL [facility] - 01 Basophils, abs 0.0 0.0 - 0.2 x10E3/uL [facility] - 01 10/30/2017 11:5 4 AM CDT 10/30/2017 Narrative [facility] - 10/30/2017 1:05 PM CDT Performed at: ??01 - [facility] [address] [facility] [address] [place], [place] [id number] Adjunct Psychology Faculty Member: Rodrigo Escobar MD, Phone: ??[phone] Damon Swanson DO LAB BLOOD ORDERABLES Final R esult [facility] - 01 documented in this encounter Visit Diagnoses Not on filedocumented in this encounter Care Teams Makeup Sales Advisor Relationship Specialty Start Date End Date Zeke Puente MD [address] [place] [address] PCP - General 07/10/17 06/11/18 Damon Swanson DO [address] [place] [address] Medical Oncologist/Corrugator Supervisor Hematology and Oncology 10/25/17 documented as of this encounter
--- OUTSIDE RECORDS SUMMARY | 2024-02-26 21:39 | XMS_ITS | Encounter Summary ---
Author Organization [facility] Address [address] [place] [address] Care Team Providers Care Program Development Manager Name Role Phone Unavailable Primary Care Provider Unavailabl e Encounter Details Date Type Department Care Team (Latest Contact Info) Description 08/01/2016 2:39 PM CDT Hospital Encounter 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 1. ??Postsurgical changes are again seen of the anterior abdominal wall hernia repair. ??Overlying fluid collection likely seroma slightly increased in size where imaged. ??Collection is now 10.3 x 7.7 x 15 cm. 2. ??Mildly prominent appendix as described above but unchanged, correlate for any clinical symptoms referable to the right lower quadrant. 3. ??Moderate pericardial effusion. ??May consider correlation with echocardiogram if not previously performed. 4. ??Prominent low attenuation along the endometrium 1.1 cm, similar to prior ultrasound. If the patient is postmenopausal and there is abnormal bleeding, then a follow-up ultrasound might be considered. Automated exposure control was used as a dose optimization technique for this examination. THIS IS AN ELECTRONICALLY VERIFIED REPORT 08/02/2016 10:51 AM: ??Martinez Miguel M.D. ?? Martinez Miguel M.D. CH:jean 10:15 AM 10:31 AM [facility] [EOD] Narrative 08/02/2016 11:08 AM CDT EXAMINATION: ??CT ABDOMEN AND PELVIS WITH CONTRAST. HISTORY: ??Right upper and lower quadrant abdominal pain for 3 months, for reassessment of hernia. TECHNIQUE: ??Following the intravenous administration of 100 mL Omnipaque 350 intravenous contrast via the right antecubital vein as well as 40 ounces of oral contrast, postcontrast images were obtained through the abdomen and pelvis. COMPARISON: ??CT abdomen 03/24/2016. Correlation with pelvic ultrasound 11/28/2012. FINDINGS: ??Skin thickening of the breasts is noted where imaged. ??The heart is mildly enlarged. ??There is a moderate pericardial effusion which is not significantly changed. ??Along the lateral ventricular wall this is 2.6 cm in thickness, adjacent to the right atrium 1.3 cm. ??The fluid is mildly complex in attenuation at 21 Hounsfield units. Sequela of old granulomatous disease is noted in the chest. Abdomen: ??Liver, gallbladder, spleen, pancreas, and both adrenal glands are normal. ??No renal calculi or hydronephrosis. Postsurgical changes are noted from anterior abdominal wall hernia repair. ?? Overlying the surgical site is a fluid collection in the subcutaneous tissues of the anterior abdominal wall, now measures 10.3 x 7.7 cm and most characteristic for a seroma. ??In craniocaudal extent, collection is 15 cm, 15 Hounsfield units. ??Previously in greatest axial dimension 9.8 x 7.3 cm. ??The full craniocaudal extent not previously imaged. Moderate fecal material is noted throughout the colon. ??The terminal ileum is normal. ??The appendix is mildly prominent, this is 1 cm in diameter, with minimal indistinctness at the margins. ??This does not appear significantly changed from the prior examination. Pelvis: ??The uterus is noted, there is a low attenuation along the endometrium at 1.1 cm, this is nonspecific, could be reassessed with ultrasound as clinically indicated. ??Small amount of free fluid is noted. Bone windows show no acute or aggressive osseous lesion. Procedure Note Provider, MD Almita - 07/28/2020 EXAMINATION: CT ABDOMEN AND PELVIS WITH CONTRAST. HISTORY: Right upper and lower quadrant abdominal pain for 3 months, for reassessment of hernia. TECHNIQUE: Following the intravenous administration of 100 mL Nraqmwbre130 intravenous contrast via the right antecubital vein as well as 40 ouncesof oral contrast, postcontrast images were obtained through the abdomen and pelvis. COMPARISON: CT abdomen 03/24/2016. Correlation with pelvic ultrasound 11/28/2012. FINDINGS: Skin thickening of the breasts is noted where imaged. Theheart is mildly enlarged. There is a moderate pericardial effusion which is not significantly changed. Along the lateral ventricular wall this is 2.6 cmin thickness, adjacent to the right atrium 1.3 cm. The fluid is mildlycomplex in attenuation at 21 Hounsfield units. Sequela of old granulomatous disease is noted in the chest. Abdomen: Liver, gallbladder, spleen, pancreas, and both adrenal glandsare normal. No renal calculi or hydronephrosis. Postsurgical changes are noted from anterior abdominal wall hernia repair. Overlying the surgical site is a fluid collection in the subcutaneoustissues of the anterior abdominal wall, now measures 10.3 x 7.7 cm and most characteristic for a seroma. In craniocaudal extent, collection is 15 cm,15 Hounsfield units. Previously in greatest axial dimension 9.8 x 7.3 cm.The full craniocaudal extent not previously imaged. Moderate fecal material is noted throughout the colon. The terminal ileumis normal. The appendix is mildly prominent, this is 1 cm in diameter, with minimal indistinctness at the margins. This does not appear significantly changed from the prior examination. Pelvis: The uterus is noted, there is a low attenuation along theendometrium at 1.1 cm, this is nonspecific, could be reassessed with ultrasound as clinically indicated. Small amount of free fluid is noted. Bone windows show no acute or aggressive osseous lesion. IMPRESSION: 1. Postsurgical changes are again seen of the anterior abdominal wallhernia repair. Overlying fluid collection likely seroma slightly increased insize where imaged. Collection is now 10.3 x 7.7 x 15 cm. 2. Mildly prominent appendix as described above but unchanged, correlatefor any clinical symptoms referable to the right lower quadrant. 3. Moderate pericardial effusion. May consider correlation with echocardiogram if not previously performed. 4. Prominent low attenuation along the endometrium 1.1 cm, similar toprior ultrasound. If the patient is postmenopausal and there is abnormalbleeding, then a follow-up ultrasound might be considered. Automated exposure control was used as a dose optimization technique forthis examination. THIS IS AN ELECTRONICALLY VERIFIED REPORT 08/02/2016 10:51 AM: Martinez Miguel M.D. Martinez Miguel M.D. CH:jean 10:15 AM 10:31 AM [facility] [EOD] us Mane Aguilar MD IMG CT PROCEDURES Final Resu lt documented in this encounter Visit Diagnoses Diagnosis Right upper quadrant pain Abdominal pain, right upper quadrant Right lower quadrant pain documented in this encounter
--- OUTSIDE RECORDS SUMMARY | 2024-02-26 21:39 | XMS_ITS | Encounter Summary ---
Author Organization [facility] Healthcare Address [address] [place] [id number] Care Team Providers Care Telecommunications Administrator Name Role Phone Unavailable Primary Care Provider Unavailabl e Encounter Details Date Type Department Care Team (Latest Contact Info) Description 11/28/2012 1:53 PM CDT Hospital Encounter [facility] Abhishek Carrasquillo MD [address] [place] [address] [place] [address] Dyspepsia and other specified disorders of function of stomach Social History Tobacco Use Types Packs/Day Years Used Date Smoking Tobacco: Never Assessed Comments Unknown Sex and Gender Information Value Date Recorded Sex Assigned at Not on file 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 1. ??Mildly thickened and heterogeneous endometrial complex measuring 9 mm. ?? Nonspecific uterine calcification possibly a small calcified myoma. 2. ??Status post left oophorectomy. THIS IS AN ELECTRONICALLY VERIFIED REPORT 11/29/2012 7:42 AM: ??Ulises Marc D.O. Ulises Marc D.O. :denice 03:47 PM 03:58 PM [facility] [EOD] Narrative 11/29/2012 7:47 AM CDT EXAMINATION: ??Pelvic ultrasound. HISTORY: ??Abnormal abdominal movements. TECHNIQUE: ??Real time islas-scale sonography with color Doppler imaging of the pelvis was performed utilizing a transabdominal and endovaginal approach. COMPARISON: ??None. FINDINGS: ??The uterus measures 8.7 x 3.1 x 4.4 cm. ??Endovaginally, the endometrial complex measures 9 mm and is mildly heterogeneous in its echotexture. ??In a postmenopausal female, this is mildly thickened and abnormal. ??If direct visualization and sampling is not anticipated, consideration may be given to pelvic MRI. ??In addition, there is a curvilinear echogenic structure separate from the endometrial complex demonstrating posterior acoustic shadowing, consistent with a calcification. ??This could represent a small calcified leiomyoma. ??This is slightly more chunky than would be expected for a vascular calcification. The right ovary measures 2.6 x 0.9 x 2.9 cm. ??The left ovary is nonvisualized and has been previously removed. ??No adnexal mass is noted. ??There is no free fluid within the cul-de-sac. Procedure Note Provider, MD Almita - 07/28/2020 EXAMINATION: Pelvic ultrasound. HISTORY: Abnormal abdominal movements. TECHNIQUE: Real time islas-scale sonography with color Doppler imaging ofthe pelvis was performed utilizing a transabdominal and endovaginalapproach. COMPARISON: None. FINDINGS: The uterus measures 8.7 x 3.1 x 4.4 cm. Endovaginally, the endometrial complex measures 9 mm and is mildly heterogeneous in its echotexture. In a postmenopausal female, this is mildly thickened and abnormal. If direct visualization and sampling is not anticipated, consideration may be given to pelvic MRI. In addition, there is acurvilinear echogenic structure separate from the endometrial complex demonstrating posterior acoustic shadowing, consistent with a calcification. This could represent a small calcified leiomyoma. This is slightly more chunky than would be expected for a vascular calcification. The right ovary measures 2.6 x 0.9 x 2.9 cm. The left ovary isnonvisualized and has been previously removed. No adnexal mass is noted. There is nofree fluid within the cul-de-sac. IMPRESSION: 1. Mildly thickened and heterogeneous endometrial complex measuring 9 mm. Nonspecific uterine calcification possibly a small calcified myoma. 2. Status post left oophorectomy. THIS IS AN ELECTRONICALLY VERIFIED REPORT 11/29/2012 7:42 AM: Ulises Marc D.O. Ulises Marc D.O. :denice 03:47 PM 03:58 PM [facility] [EOD] us Abhishek Carrasquillo MD IMG US PROCEDURES Fi nal Result documented in this encounter Visit Diagnoses Diagnosis Dyspepsia and other specified disorders of function of stomach documented in this encounter
--- OUTSIDE RECORDS SUMMARY | 2024-02-26 21:39 | XMS_ITS | Encounter Summary ---
Author Organization [facility] Healthcare Address [address] [place] [address] Care Team Providers Care Baker Bread Name Role Phone Unavailable Primary Care Provider Unavailabl e Encounter Details Date Type Department Care Team (Latest Contact Info) Description 10/18/2016 9:14 PM CDT - 10/19/2016 12:56 AM CDT Hospital Encounter [facility] Rakan Baker, DO [address] [place], [place] [id number] Right lower quadrant pain; Type 2 diabetes mellitus with hyperglycemia (CMS/HCC); Essential (primary) hypertension; Hyperlipidemia; Hypothyroidism; Personal history of malignant neoplasm of breast; 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; 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) Social History Tobacco Use Types Packs/Day Years Used Date Smoking Tobacco: Never Assessed Comments Unknown Sex and Gender Information Value Date Recorded Sex Assigned at Not on file 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 Gender Identity Not on file Sexual Orientation Not on file documented as of this encounter Last Filed Vital Signs Vital Sign Reading Time Taken Comments Blood Pressure 170/89 10/18/2016 9:20 PM CDT Pulse 82 10/18/2016 9:20 PM CDT Temperature 36.7 ??C (98.1 ??F) 10/18/2016 9:20 PM CD T Respiratory Rate - - Oxygen Saturation 97% 10/18/2016 9:20 PM CDT Inhaled Oxygen Concentration - - Weight 86.2 kg (190 lb) 10/18/2016 9:20 PM CDT Height 157.5 cm (5' 2 ) 10/18/2016 9:20 PM CDT Body Mass Index 34.75 10/18/2016 9:20 PM CDT documented in this encounter Plan of Treatment Not on file documented as of this encounter Procedures Procedure Name Priority Date/Time Associated Diagnosis Comments CBC WITH AUTO DIFFERENTIAL Routine 10/18/2016 10:04 PM CDT THYROID FUNCTION CASCADE Routine 10/18/2016 10:03 PM CDT T4, FREE Routine 10/18/2016 10:03 PM CDT LIPASE Routine 10/18/2016 10:03 PM CDT COMPREHENSIVE METABOLIC PANEL Routine 10/18/2016 10:03 PM CDT URINALYSIS, MACRO AND MICRO Routine 10/18/2016 9:[address] ABDOMEN PELVIS W CONTRAST Routine 10/18/2016 12:00 AM CDT documented in this encounter Results * (ABNORMAL) CBC with auto differential (10/18/2016 10:04 PM CDT) WBC 4.5(L) 4.6 - 10.2 x10 3/ul 10/18/2016 10:16 PM CDT [facility] HISTORICAL RESULTS RBC 3.70(L) 3.76 - 4.80 x10 6/ul 10/18/2016 10:16 PM CDT [facility] HISTORICAL RESULTS Hemoglobin 11.9 11.0 - 15.0 g/dl 10/18/2016 10:16 PM CDT [facility] HISTORICAL RESULTS Hct 33.4 33.0 - 43.0 % 10/18/2016 10:16 PM CDT [facility] HISTORICAL RESULTS MCV 90.3 80.0 - 97.0 fl 10/18/2016 10:16 PM CDT [facility] HISTORICAL RESULTS MCH 32.2(H) 27.0 - 31.2 pg MCHC 35.6(H) 31.8 - 35.4 g/dl RDW 14.3 11.6 - 14.8 % Plt Count 210 124 - 400 x10 3/ul MPV 10.7(H) 7.4 - 10.4 fl Neut % 63.8 37.0 - 85.0 % Immature Gran % 0.4 0.0 - 3.0 % Lymph % 26.1 5.0 - 45.0 % Dickey % 8.4 3.0 - 15.0 % Eos % 0.9 0.0 - 7.0 % Baso % 0.4 0.0 - 2.0 % Absolute Neuts (auto) 2.9 1.7 - 8.7 x10 3/ul Immature Gran # 0.0 0.0 - 0.3 x10 3/ul 10/18/2016 10:16 PM T [facility] HISTORICAL RESULTS Absolute Lymphs (auto) 1.2 0.2 - 4.6 x10 3/ul Absolute Monos (auto) 0.4 0.1 - 1.5 x10 3/ul Absolute Eos (auto) 0.0 0.0 - 0.7 x10 3/ul 10/18/2016 10:16 PM CDT [facility] HISTORICAL RESULTS Absolute Basos (auto) 0.0 0.0 - 0.2 x10 3/ul 10/18/2016 10:16 PM CDT [facility] HISTORICAL RESULTS Nucleat RBC Rel Count 0.4 0 - 3 #/100WBC 10/18/2016 10:16 PM CDT [facility] HISTORICAL RESULTS Absolute Nucleated RBC 0.02 x10 3/ul 10/18/2016 10:16 PM CDT [facility] HISTORICAL RESULTS Absolute Neutrophils 2900 200 - 8000 /ul 10/18/2016 10:16 PM CDT [facility] HISTORICAL RESULTS 10/18/2016 10:0 4 PM CDT 10/18/2016 10:13 PM CDT [facility] LAB BLOOD ORDERABLES Debbie l Result Performing Organization Address [facility]/ZIP Co de Phone Number [facility] HISTORICAL RESULTS * (ABNORMAL) T4, free (10/18/2016 10:03 PM CDT) Free T4 0.19(L) 0.93 - 1.70 ng/dL 10/19/2016 12:12 AM CDT [facility] HISTORICAL RESULTS 10/18/2016 10:0 3 PM CDT 10/18/2016 10:13 PM CDT [facility] LAB BLOOD ORDERABLES Debbie l Result [facility] HISTORICAL RESULTS * (ABNORMAL) TSH reflex to free T4 (10/18/2016 10:03 PM CDT) TSH W REFLEX TO FT4 17.13(H) 0.27 - 4.20 uIU/mL 10/18/2016 11:41 PM CDT [facility] HISTORICAL RESULTS Comment:Abnormal TSH result. FT4 has been ordered. 10/18/2016 10:0 3 PM CDT 10/18/2016 10:13 PM CDT [facility] LAB BLOOD ORDERABLES Debbie l Result Performing Organization Address City/[facility]/ZIP Co de Phone Number [facility] HISTORICAL RESULTS * (ABNORMAL) Lipase (10/18/2016 10:03 PM CDT) Lipase 12(L) 13 - 60 U/L 10/18/2016 11:12 PM CDT [facility] HISTORICAL RESULTS 10/18/2016 10:0 3 PM CDT 10/18/2016 10:13 PM CDT [facility] Debbie l Result Performing Organization Address [facility] Co de Phone Number [facility] HISTORICAL RESULTS * (ABNORMAL) Comprehensive metabolic panel (10/18/2016 10:03 PM CDT) Sodium 132(L) 135 - 145 mmol/L Potassium 3.9 3.3 - 5.1 mmol/L Chloride 88(L) 96 - 108 mmol/L Carbon Dioxide 31 22 - 32 mmol/L Anion Gap 13 7 - 16 Glucose 323(H) 70 - 100 mg/dL BUN 15 8 - 23 mg/dL Creatinine 0.7 0.5 - 1.1 mg/dL Comment: NOTE: Estimated GFR (Cockroft-Gault) will NOT be calculated unless patient Height and Weight were entered. Also, Kidney Disease Stage (GFR) and Estimated GFR (Cockroft-Gault) will NOT be calculated if Creatinine result is <0.2. Kidney Disease Stage > 90 mL/MIN Comment: NOTE; ??The GFR is an estimated [...] dialysis @ Est GFR (Cockcroft-G) 86 ml/MIN Comment: Estimated GFR(Cockroft-Gault)is used to calculate patient medication dosage Calcium 9.0 8.8 - 10.2 mg/dL Total Protein 7.6 6.4 - 8.3 g/dL Albumin 4.3 3.5 - 5.2 g/dL Globulin 3.3 2.3 - 3.5 gm/dL Albumin/Globulin Ratio 1.3 1.1 - 1.8 Total Bilirubin 0.9 0.0 - 1.2 mg/dL AST 38(H) 0 - 32 U/L ALT 33 0 - 33 U/L 10/19/2016 12:12 AM T [facility] HISTORICAL RESULTS Alkaline Phosphatase 51 35 - 104 U/L 10/18/2016 10:0 3 PM CDT 10/18/2016 10:13 PM CDT [facility] LAB BLOOD ORDERABLES Debbie l Result [facility] HISTORICAL RESULTS * (ABNORMAL) Urinalysis, macro and micro (10/18/2016 9:45 PM CDT) Ur Collection Type CLEAN CATCH Urine Color YELLOW YELLOW Urine Clarity Slightly-Pat udy CLEAR Urine Glucose (UA) >=500(H) NORMAL mg/dL Urine Bilirubin NEGATIVE NEGATIVE mg/dl Urine Ketones NEGATIVE NEGATIVE mg/dL Ur Specific [place] 1.018 1.005 - 1.025 Urine Blood NEGATIVE NEGATIVE mg/dl Urine pH 7.0 5.0 - 8.0 Urine Protein 100(H) NEGATIVE mg/dL Urine Urobilinogen 4(H) NORMAL mg/dL Urine Nitrite NEGATIVE NEGATIVE Ur Leukocyte Esterase NEGATIVE NEGATIVE Bernadette/ul 10/18/2016 10:14 PM CDT [facility] HISTORICAL RESULTS Ur Microscopic Review Indicated or Ordered 10/18/2016 10:14 PM CDT [facility] HISTORICAL RESULTS Urine RBC 2 0 - 2 /HPF 10/18/2016 10:14 PM CDT [facility] HISTORICAL RESULTS Urine WBC 2 0 - 2 /HPF 10/18/2016 10:14 PM CDT [facility] HISTORICAL RESULTS Urine Mucus RARE /LPF 10/18/2016 10:14 PM CDT [facility] HISTORICAL RESULTS Ur Squamous Epith Cells Rare /HPF 10/18/2016 10:14 PM CDT [facility] HISTORICAL RESULTS 10/18/2016 9:45 PM CDT 10/18/2016 9:59 PM CDT Narrative [facility] HISTORICAL RESULTS - 10/18/2016 10:14 PM CDT [facility]re[facility] LAB URINE ORDERABLES Debbie l Result [facility] HISTORICAL RESULTS * CT Abdomen Pelvis W Contrast (10/18/2016 12:00 AM CDT) Anatomical Region Laterality Modality Body N/A Computed Tomogra phy 10/18/2016 Impressions 10/18/2016 10:44 PM CDT ?? 1.. ??No hydronephrosis or intra-abdominal abscess. 2.. ??Normal appendix. ??No bowel obstruction. 3.. ??Hypoattenuation in the central uterus. ??Recommend correlation with non emergent pelvic ultrasound to assess endometrial thickness. 4.. ??Stable soft tissue subcutaneous anterior abdominal wall seroma. ??Yes Automated exposure control was used as a dose optimization technique for this examination. THIS IS AN ELECTRONICALLY VERIFIED REPORT 10/18/2016 10:39 PM: ??Charity Briones M.D. ?? Charity Briones M.D. ML:ml 10:39 PM 10:39 PM [facility] [EOD] Narrative 10/18/2016 10:44 PM CDT EXAMINATION: ??CT of the abdomen and pelvis with contrast COMPARISON: 08/01/16 HISTORY: ??Lower quadrant pain with dysuria since this a.m.. ??Previous hernia repair and breast cancer TECHNIQUE: ??Images from the diaphragm to the pubic symphysis were obtained ?? withoutoral and following intravenous administration of ??100 mL of Omnipaque 350 via the right antecubital fossa. Automated exposure control was used as a dose optimization technique for this examination. FINDINGS: Abdomen: ??Mild basilar atelectasis. ??No pneumoperitoneum. ??Small to moderate pericardial effusion, improved. ??Mild hepatic steatosis. ??Splenic calcifications. ??The gallbladder, pancreas, adrenal glands and kidneys are normal. ??Mild atherosclerotic calcification of a nondilated abdominal aorta. ?? Tiny hiatal hernia. Pelvis: ??Stable low attenuation within the central uterus, recommend correlation with non emergent pelvic ultrasound to assess the endometrial thickness. ??Adnexa are unremarkable. ??No free pelvic fluid moderate stool throughout the colon without bowel dilation. ??There is a normal appendix. ??No pelvic lymphadenopathy. ??Previous anterior abdominal wall hernia repair sutures with a stable 8 cm soft tissue seroma. ??There is degenerative change about the lumbar spine but no fractures or worrisome lesions. Procedure Note Provider, MD Almita - 07/28/2020 EXAMINATION: CT of the abdomen and pelvis with contrast COMPARISON: 08/01/16 HISTORY: Lower quadrant pain with dysuria since this a.m.. Previoushernia repair and breast cancer TECHNIQUE: Images from the diaphragm to the pubic symphysis were obtained withoutoral and following intravenous administration of 100 mL ofOmnipaque 350 via the right antecubital fossa. Automated exposure control was usedas a dose optimization technique for this examination. FINDINGS: Abdomen: Mild basilar atelectasis. No pneumoperitoneum. Small tomoderate pericardial effusion, improved. Mild hepatic steatosis. Splenic calcifications. The gallbladder, pancreas, adrenal glands and kidneys are normal. Mild atherosclerotic calcification of a nondilated abdominalaorta. Tiny hiatal hernia. Pelvis: Stable low attenuation within the central uterus, recommend correlation with non emergent pelvic ultrasound to assess the endometrial thickness. Adnexa are unremarkable. No free pelvic fluid moderate stool throughout the colon without bowel dilation. There is a normal appendix.No pelvic lymphadenopathy. Previous anterior abdominal wall hernia repair sutures with a stable 8 cm soft tissue seroma. There is degenerativechange about the lumbar spine but no fractures or worrisome lesions. IMPRESSION: 1.. No hydronephrosis or intra-abdominal abscess. 2.. Normal appendix. No bowel obstruction. 3.. Hypoattenuation in the central uterus. Recommend correlation withnon emergent pelvic ultrasound to assess endometrial thickness. 4.. Stable soft tissue subcutaneous anterior abdominal wall seroma.Yes Automated exposure control was used as a dose optimization technique forthis examination. THIS IS AN ELECTRONICALLY VERIFIED REPORT 10/18/2016 10:39 PM: Charity Briones M.D. Charity Briones M.D. 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
--- OUTSIDE RECORDS SUMMARY | 2024-02-26 21:39 | XMS_ITS | Encounter Summary ---
Author Organization [facility] Healthcare Address [address] [place] [address] Care Team Providers Care Women Nurse Name Role Phone Zeke Puente MD Primary Care Provider [phone] Damon Swanson DO Unavailable [phone] Encounter Details Date Type Department Care Team (Latest Contact Info) Description 11/18/2017 3:36 PM CDT - 11/19/2017 1:25 AM CDT Hospital Encounter [facility] Thomas Retana Jr., MD [address] [place] [address] Type 2 diabetes mellitus with hyperglycemia (CMS/HCC); Hypertensive urgency; Abnormal results of liver function studies; Obesity; Type 2 diabetes mellitus with diabetic polyneuropathy (CMS/HCC); Essential (primary) hypertension; Hyperlipidemia; Bipolar disorder (CMS/HCC); Schizophrenia (CMS/HCC); Hypothyroidism; Tubal ligation status; 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 superintendent 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; 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) Social History Tobacco Use Types Packs/Day Years Used Date Smoking Tobacco: Never Smokeless Tobacco: Never Alcohol Use Standard Drinks/Week Comments No 0 (1 standard drink = 0.6 oz pur e alcohol) Comments Unknown Sex and Gender Information Value Date Recorded Sex Assigned at Not on file Legal 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[employer] Gender Identity Not on file Sexual Orientation Not on file documented as of this encounter Last Filed Vital Signs Vital Sign Reading Time Taken Comments Blood Pressure 167/81 11/18/2017 3:38 PM CDT Pulse 72 11/18/2017 3:38 PM CDT Temperature 36.9 ??C (98.4 ??F) 11/18/2017 3:38 PM CD T Respiratory Rate - - Oxygen Saturation 98% 11/18/2017 3:38 PM CDT Inhaled Oxygen Concentration - - Weight 95.3 kg (210 lb) 11/18/2017 3:38 PM CDT Height 157.5 cm (5' 2 ) 11/18/2017 3:38 PM CDT Body Mass Index 38.41 11/18/2017 3:38 PM CDT documented in this encounter Medications [...] AND REFLEX TO MICROSCOPIC AND CULTURE Routine 11/18/2017 8:45 PM CDT D-DIMER, QUANTITATIVE Routine 11/18/2017 7:20 PM CDT B-TYPE NATRIURETIC PEPTIDE Routine 11/18/2017 7:20 PM CDT COMPREHENSIVE METABOLIC PANEL Routine 11/18/2017 6:06 PM CDT CBC WITH AUTO DIFFERENTIAL Routine 11/18/2017 4:19 PM CDT TROPONIN I Routine 11/18/2017 4:[address] CHEST WO CONTRAST Routine 11/18/2017 12:00 AM CDT XR CHEST PA LATERAL 2 VIEWS Routine 11/18/2017 12:00 AM CDT documented in this encounter Results * (ABNORMAL) Urinalysis reflex to microscopic and culture (11/18/2017 8:45 PM CDT) Ur Collection Type CLEAN CATCH Ur Culture Indicated? C&S NOT INDICATED Urine Color YELLOW YELLOW Urine Clarity Slightly-Pat udy CLEAR Urine Glucose (UA) >=500(H) NORMAL mg/dL Urine Bilirubin NEGATIVE NEGATIVE mg/dl Urine Ketones NEGATIVE NEGATIVE mg/dL Ur Specific Coats 1.016 1.005 - 1.025 Urine Blood NEGATIVE NEGATIVE mg/dl Urine pH 7.0 5.0 - 8.0 Urine Protein 30(H) NEGATIVE mg/dL Urine Urobilinogen 4(H) NORMAL mg/dL Urine Nitrite NEGATIVE NEGATIVE 11/18/2017 9:[address] [facility] HISTORICAL RESULTS Ur Leukocyte Esterase NEGATIVE NEGATIVE Bernadette/ul 11/18/2017 9:[address] [facility] HISTORICAL RESULTS Ur Microscopic Review Indicated or Ordered 11/18/2017 9:[address] [facility] HISTORICAL RESULTS Urine RBC 5 0 - 2 /HPF 11/18/2017 9:[address] [facility] HISTORICAL RESULTS Urine WBC 1 0 - 2 /HPF 11/18/2017 9:[address] [facility] HISTORICAL RESULTS Urine Mucus RARE /LPF 11/18/2017 9:[address] [facility] HISTORICAL RESULTS Ur Squamous Epith Cells Rare /HPF 11/18/2017 9:[address] [facility] HISTORICAL RESULTS 11/18/2017 8:45 PM CDT 11/18/2017 8:53 PM CDT Narrative [facility] HISTORICAL RESULTS - 11/18/2017 9:06 PM CDT Indication(s) for ordering ? Fever -unknown source ?? us Silke GONZALEZ LAB MICROBIOLOGY - [facility] Final Result Performing Organization Address [facility]/ZIP Co de Phone Number [facility] HISTORICAL RESULTS * (ABNORMAL) D-dimer, quantitative (11/18/2017 7:20 PM CDT) D-Dimer, Quantitative 0.72(H) 0.00 - 0.50 FEUug/ml 11/18/2017 7:[address] [facility] HISTORICAL RESULTS Comment: Studies indicate that a D-Dimer level of <0.50 FEUug/ml has a >95% negative predictive value for DVT,DIC,PE and other embolus conditions. ??Levels >0.50 FEUug/ml may be present in a wide variety of conditions and should not be considered diagnostic of any disease state. 11/18/2017 7:20 PM CDT 11/18/2017 7:23 PM CDT us Ramsey Broussard LAB BLOOD ORDERABLES Final Resul t Performing Organization Address City/[facility]/ZIP Co de Phone Number [facility] HISTORICAL RESULTS * B-type natriuretic peptide (11/18/2017 7:20 PM CDT) Pathologist [facility] B-Natriuretic Peptide 83 0 - 100 pg/mL 11/18/2017 7:[address] [facility] HISTORICAL RESULTS Comment: B Natriutetic Peptide METHOD: ??Siemens Centaur [...] hours of bolus or infusion of nesiritide. 11/18/2017 7:20 PM CDT 11/18/2017 7:23 PM CDT Ramsey Broussard LAB BLOOD ORDERABLES Final Resul t [facility] HISTORICAL RESULTS * (ABNORMAL) Comprehensive metabolic panel (11/18/2017 6:06 PM CDT) Pathologist [facility] Sodium 139 135 - 145 mmol/L 11/18/2017 6:[address] [facility] HISTORICAL RESULTS Potassium 3.9 3.3 - 5.1 mmol/L 11/18/2017 7:[address] [facility] HISTORICAL RESULTS Comment:SPECIMEN HEMOLYZED, REDRAW IS SUGGESTED Chloride 96 96 - 108 mmol/L Carbon Dioxide 27 22 - 32 mmol/L Anion Gap 16 7 - 16 11/18/2017 6:[address] [facility] HISTORICAL RESULTS Glucose 294(H) 70 - 100 mg/dL BUN 12 8 - 23 mg/dL 11/18/2017 6:[address] [facility] HISTORICAL RESULTS Creatinine 0.5 0.5 - 1.1 mg/dL 11/18/2017 6:[address] [facility] HISTORICAL RESULTS Comment: NOTE: Estimated GFR (Cockroft-Gault) [...] or on dialysis @ Est GFR (Cockcroft-G) 126 ml/MIN Comment: Estimated GFR(Cockroft-Gault)is used to calculate patient medication dosage Calcium 8.5(L) 8.8 - 10.2 mg/dL Total Protein 6.9 6.4 - 8.3 g/dL Albumin 3.9 3.5 - 5.2 g/dL Globulin 3.0 2.3 - 3.5 gm/dL Albumin/Globulin Ratio 1.3 1.1 - 1.8 11/18/2017 6:[address] [facility] HISTORICAL RESULTS Total Bilirubin 0.8 0.0 - 1.2 mg/dL 11/18/2017 6:[address] [facility] HISTORICAL RESULTS AST 98(H) 0 - 32 U/L 11/18/2017 7:[address] [facility] HISTORICAL RESULTS Comment:SPECIMEN HEMOLYZED, REDRAW IS SUGGESTED ALT 106(H) 0 - 33 U/L 11/18/2017 7:[address] [facility] HISTORICAL RESULTS Comment:SPECIMEN HEMOLYZED, REDRAW IS SUGGESTED Alkaline Phosphatase 64 35 - 104 U/L 11/18/2017 6:[address] [facility] HISTORICAL RESULTS 11/18/2017 6:06 PM CDT 11/18/2017 6:08 PM CDT us Historical Provider LAB BLOOD ORDERABLES Debbie l Result Performing Organization Address City/[facility]/ZIP Co de Phone Number [facility] HISTORICAL RESULTS * Troponin I (11/18/2017 4:19 PM CDT) Pathologist [facility] Troponin I < 0.300 0.000 - 0.300 ng/mL 11/18/2017 4:[address] [facility] HISTORICAL RESULTS Comment: Reference using CHRISTIANE Chemiluminescence ? Negative: Repeat in 4-6 hours as indicated. 11/18/2017 4:19 PM CDT 11/18/2017 4:30 PM CDT us Silke GONZALEZ LAB BLOOD ORDERABLES Final Resu lt [facility] HISTORICAL RESULTS * (ABNORMAL) CBC with auto differential (11/18/2017 4:19 PM CDT) WBC 4.2 3.5 - 10.5 x10 3/ul 11/18/2017 4:[address] [facility] HISTORICAL RESULTS RBC 3.41(L) 3.76 - 4.80 x10 6/ul 11/18/2017 4:[address] [facility] HISTORICAL RESULTS Hemoglobin 10.9(L) 11.0 - 15.0 g/dL Hct 30.5(L) 33.0 - 43.0 % MCV 89.4 80.0 - 97.0 fl 11/18/2017 4:[address] [facility] HISTORICAL RESULTS MCH 32.0(H) 27.0 - 31.2 pg 11/18/2017 4:[address] [facility] HISTORICAL RESULTS MCHC 35.7(H) 31.8 - 35.4 g/dl RDW 13.9 11.6 - 14.8 % Plt Count 162 150 - 450 X10 3/ul 11/18/2017 4:[address] [facility] HISTORICAL RESULTS MPV 10.7(H) 7.4 - 10.4 fl 11/18/2017 4:[address] [facility] HISTORICAL RESULTS Neut % 65.5 37.0 - 85.0 % 11/18/2017 4:[address] [facility] HISTORICAL RESULTS Immature Gran % 0.5 0.0 - 3.0 % 11/18/2017 4:[address] [facility] HISTORICAL RESULTS Lymph % 25.4 5.0 - 45.0 % 11/18/2017 4:[address] [facility] HISTORICAL RESULTS Pershing % 6.2 3.0 - 15.0 % 11/18/2017 4:[address] [facility] HISTORICAL RESULTS Eos % 1.7 0.0 - 7.0 % Baso % 0.7 0.0 - 2.0 % Absolute Neuts (auto) 2.7 1.7 - 8.7 x10 3/ul Immature Gran # 0.0 0.0 - 0.3 x10 3/ul 11/18/2017 4:[address] [facility] HISTORICAL RESULTS Absolute Lymphs (auto) 1.1 0.2 - 4.6 x10 3/ul 11/18/2017 4:[address] [facility] HISTORICAL RESULTS Absolute Monos (auto) 0.3 0.1 - 1.5 x10 3/ul 11/18/2017 4:[address] [facility] HISTORICAL RESULTS Absolute Eos (auto) 0.1 0.0 - 0.7 x10 3/ul 11/18/2017 4:[address] [facility] HISTORICAL RESULTS Absolute Basos (auto) 0.0 0.0 - 0.2 x10 3/ul 11/18/2017 4:[address] [facility] HISTORICAL RESULTS Nucleat RBC Rel Count 0.0 0 - 3 #/100WBC 11/18/2017 4:[address] [facility] HISTORICAL RESULTS Absolute Nucleated RBC 0.00 x10 3/ul 11/18/2017 4:[address] [facility] HISTORICAL RESULTS Absolute Neutrophils 2700 200 - 8000 /ul 11/18/2017 4:[address] [facility] HISTORICAL RESULTS 11/18/2017 4:19 PM CDT 11/18/2017 4:30 PM CDT us Silke GONZALEZ LAB BLOOD ORDERABLES Final Resu lt [facility] HISTORICAL RESULTS * XR Chest Pa Lateral 2 Views (11/18/2017 12:00 AM CDT) Anatomical Region Laterality Modality Body, Chest N/A Radiographic Sylvia ging 11/18/2017 Impressions 11/18/2017 4:53 PM CDT ?? 1.Apparent dense opacity projecting of the lower thoracic spine as seen on the lateral projection which is radiographically occult on the AP projection although is likely retrocardiac in positioning. ??Chest CT could be obtained for further characterization if warranted. 2.Enlargement of the cardiomediastinal silhouette when compared to the prior chest x-ray which may be due to pericardial effusion which was seen on the prior chest CT. ??Again, chest CT could be obtained for further assessment if warranted. THIS IS AN ELECTRONICALLY VERIFIED FINAL REPORT 11/18/2017 4:50 PM - Electronically signed by Jayy Hernandez M.D. D: ??11/18/2017 4:50 PM T: Report ID: [id number] Reading Location: ??[id number] [EOD] Narrative 11/18/2017 4:53 PM CDT EXAM DESCRIPTION: ??Chest 2 Views REASON FOR STUDY: ??Shortness of breath and bilateral lower extremity swelling for 3 months. TECHNIQUE: ??PA and lateral radiographic views of the chest acquired. COMPARISON: ??Chest x-ray dated 03/14/[address] dated 07/24/2017. FINDINGS: LUNGS/PLEURA: Linear atelectasis or scarring is noted in the left lung apex which was present on the prior chest CT. ??On the lateral projection there appears to be dense consolidation projecting over the lower thoracic spine which is presumably in the retrocardiac left lower lobe although is radiographically occult on the AP projection. ??No pleural effusion. HEART/MEDIASTINUM: Prominent enlargement of the cardiac silhouette which may be due to cardiomegaly or possibly pericardial effusion which was seen on the prior CT dated 07/24/2017. ??Questionable mild prominence of the interstitium. HARDWARE/LINES/TUBES: None. BONES: No acute findings. OTHER: No other significant finding. Procedure Note Provider, MD Almita - 07/28/2020 EXAM DESCRIPTION: Chest 2 Views REASON FOR STUDY: Shortness of breath and bilateral lower extremityswelling for 3 months. TECHNIQUE: PA and lateral radiographic views of the chest acquired. COMPARISON: Chest x-ray dated 03/14/[address] dated 07/24/2017. FINDINGS: LUNGS/PLEURA: Linear atelectasis or scarring is noted in the left lungapex which was present on the prior chest CT. On the lateral projection there appears to be dense consolidation projecting over the lower thoracic spine which is presumably in the retrocardiac left lower lobe although is radiographically occult on the AP projection. No pleural effusion. HEART/MEDIASTINUM: Prominent enlargement of the cardiac silhouette whichmay be due to cardiomegaly or possibly pericardial effusion which was seen onthe prior CT dated 07/24/2017. Questionable mild prominence of theinterstitium. HARDWARE/LINES/TUBES: None. BONES: No acute findings. OTHER: No other significant finding. IMPRESSION: 1.Apparent dense opacity projecting of the lower thoracic spine as seen onthe lateral projection which is radiographically occult on the AP projection although is likely retrocardiac in positioning. Chest CT could beobtained for further characterization if warranted. 2.Enlargement of the cardiomediastinal silhouette when compared to theprior chest x-ray which may be due to pericardial effusion which was seen on the prior chest CT. Again, chest CT could be obtained for further assessmentif warranted. THIS IS AN ELECTRONICALLY VERIFIED FINAL REPORT 11/18/2017 4:50 PM - Electronically signed by Jayy Hernandez M.D. T: Report ID: [id number] Reading Location: [id number] [EOD] Silke GONZALEZ IMG XR PROCEDURES Final Result * CT Chest WO Contrast (11/18/2017 12:00 AM CDT) Anatomical Region Laterality Modality Body N/A Computed Tomogra phy 11/18/2017 Impressions 11/18/2017 5:48 PM CDT ?? 1.Persistent moderate pericardial effusion, similar appearance to the prior study. ??This results in compressive atelectasis in the left lower lobe accounting for the opacity on the prior chest radiograph. ??No pneumonia is visualized. 2.Stable presumed postoperative seroma in the right breast. 3.Stable linear scarring in the left lung apex. THIS IS AN ELECTRONICALLY VERIFIED FINAL REPORT 11/18/2017 5:45 PM - Electronically signed by Jayy Hernandez M.D. D: ??11/18/2017 5:45 PM T: Report ID: [id number] Reading Location: ??[id number] [EOD] Narrative 11/18/2017 5:48 PM CDT EXAM DESCRIPTION: ??CT Chest WO IV Contrast REASON FOR STUDY: ??History of breast carcinoma bilaterally in 2010. ??Shortness of breath and bilateral leg swelling and numbness for 3 months. TECHNIQUE: ??CT scan of the chest performed without intravenous contrast using helical scanning technique. Reconstructed coronal and sagittal MPR images reviewed. ??All images stored on PACS. ??The sensitivity for detection of solid visceral lesions is diminished without the use of intravenous contrast. ?? Automated exposure control was used as a dose optimization technique for this examination. COMPARISON: ??Chest CT dated 07/24/2017 and chest radiograph from earlier today. FINDINGS: LUNGS: There is fairly dense atelectasis in the left lower lobe corresponding to the findings on the prior chest radiograph. ??No definite findings of pneumonia on this examination. ??Stable linear scarring in the left lung apex. ?? Mild right basilar dependent atelectasis. PLEURA: No effusion. No pneumothorax. MEDIASTINUM/TAYLOR: Prominent calcified mediastinal lymph nodes are noted. ??No lymphadenopathy identified. HEART: There is mild cardiomegaly present. ??There is a persistent moderate pericardial effusion partially accounting for the cardiac enlargement on the chest radiograph. ??This measures up to 2.7 cm in thickness posteriorly, similar to the prior study. VASCULATURE: The thoracic aorta is normal in caliber with atherosclerotic calcifications present. ??Coronary artery atherosclerotic calcifications are present. AXILLA: No adenopathy. CHEST WALL: Within the right breast there is a persistent presumed postoperative seroma measuring up to 6.5 cm, similar when compared to the prior study. HARDWARE/LINES/TUBES: None. UPPER ABDOMEN: No significant abnormality. MUSCULOSKELETAL: Moderate diffuse degenerative disc disease. OTHER: No other significant abnormality. Procedure Note Provider, MD Almita - 07/28/2020 EXAM DESCRIPTION: CT Chest WO IV Contrast REASON FOR STUDY: History of breast carcinoma bilaterally in 2010.Shortness of breath and bilateral leg swelling and numbness for 3 months. TECHNIQUE: CT scan of the chest performed without intravenous contrastusing helical scanning technique. Reconstructed coronal and sagittal MPR images reviewed. All images stored on PACS. The sensitivity for detection ofsolid visceral lesions is diminished without the use of intravenous contrast. Automated exposure control was used as a dose optimization technique forthis examination. COMPARISON: Chest CT dated 07/24/2017 and chest radiograph from [place]. FINDINGS: LUNGS: There is fairly dense atelectasis in the left lower lobecorresponding to the findings on the prior chest radiograph. No definite findings of pneumonia on this examination. Stable linear scarring in the left lungapex. Mild right basilar dependent atelectasis. PLEURA: No effusion. No pneumothorax. MEDIASTINUM/TAYLOR: Prominent calcified mediastinal lymph nodes are noted.No lymphadenopathy identified. HEART: There is mild cardiomegaly present. There is a persistent moderate pericardial effusion partially accounting for the cardiac enlargement onthe chest radiograph. This measures up to 2.7 cm in thickness posteriorly, similar to the prior study. VASCULATURE: The thoracic aorta is normal in caliber with atherosclerotic calcifications present. Coronary artery atherosclerotic calcificationsare present. AXILLA: No adenopathy. CHEST WALL: Within the right breast there is a persistent presumed postoperative seroma measuring up to 6.5 cm, similar when compared to the prior study. HARDWARE/LINES/TUBES: None. UPPER ABDOMEN: No significant abnormality. MUSCULOSKELETAL: Moderate diffuse degenerative disc disease. OTHER: No other significant abnormality. IMPRESSION: 1.Persistent moderate pericardial effusion, similar appearance to theprior study. This results in compressive atelectasis in the left lower lobe accounting for the opacity on the prior chest radiograph. No pneumonia is visualized. 2.Stable presumed postoperative seroma in the right breast. 3.Stable linear scarring in the left lung apex. THIS IS AN ELECTRONICALLY VERIFIED FINAL REPORT 11/18/2017 5:45 PM - Electronically signed by Jayy Hernandez M.D. T: Report ID: [id number] Reading Location: [place] [id number] [EOD] Silke MONTERO CT PROCEDURES Final Result documented in this encounter Visit Diagnoses Diagnosis Type 2 diabetes mellitus with hyperglycemia (CMS/HCC) (HCC) Hypertensive urgency Abnormal results of liver function studies Nonspecific abnormal results of liver function study Obesity Obesity, unspecified Type 2 diabetes mellitus with diabetic polyneuropathy (HCC) Essential (primary) hypertension Unspecified essential hypertension Hyperlipidemia Other and unspecified hyperlipidemia Bipolar disorder (HCC) Bipolar disorder, unspecified Schizophrenia (HCC) Unspecified schizophrenia, unspecified condition Hypothyroidism Unspecified hypothyroidism Tubal ligation status Other intermediate (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
--- OUTSIDE RECORDS SUMMARY | 2024-02-26 21:39 | XMS_ITS | Encounter Summary ---
Author Organization [facility] Healthcare Address [address] [place] [address] Care Team Providers Care Boiler/Chiller Technician Name Role Phone Unavailable Primary Care Provider Unavailabl e Encounter Details Date Type Department Care Team (Latest Contact Info) Description 08/22/2014 9:39 AM CDT Hospital Encounter [facility] OP Damon Swanson, DO [facility] [id number] Malignant neoplasm of breast (female) (HCC); Observation for suspected malignant neoplasm Social History Tobacco Use Types Packs/Day Years Used Date Smoking Tobacco: Never Assessed Comments Unknown Sex and Gender Information Value Date Recorded Sex Assigned at Not on file 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 Gender Identity Not on file Sexual Orientation Not on file documented as of this encounter Plan of Treatment Not on file documented as of this encounter Procedures Procedure Name Priority Date/Time Associated Diagnosis Comments CT ABDOMEN W CONTRAST Routine 08/22/2014 12:[address] CHEST W CONTRAST Routine 08/22/2014 1 2:00 AM CDT documented in this encounter Results * CT Abdomen W Contrast (08/22/2014 12:00 AM CDT) Anatomical Region Laterality Modality Body N/A Computed Tomogra phy 08/22/2014 Narrative 08/25/2014 6:38 PM CDT EXAMINATION: CT CHEST AND ABDOMEN WITH CONTRAST HISTORY: Breast cancer with metastatic disease. ??Restaging examination ?? TECHNIQUE: ??Contrast enhanced helical CT of the chest and abdomen was performed. 100 mL of Omnipaque 350 was administered uneventfully via the right antecubital vein. COMPARISON: CT of the chest and abdomen dated January 23, 2014 CT CHEST FINDINGS: ?? Support Devices: ??None. Heart/Pericardium/Great Vessels: ??Cardiac size is normal. ??There is no pericardial effusion. ??The great vessels of the chest are normal in caliber. Pleural Spaces: ??The pleural spaces are clear. Mediastinum/Cari: ??There is no mediastinal or hilar lymph node enlargement. Neck Base/Chest Wall/Diaphragm: ??There is no supraclavicular or axillary lymph node enlargement. ??Limited imaging through the upper abdomen is within normal limits. ??Mild degenerative spondylosis is present in the spine. There is diffuse cutaneous thickening of the breast bilaterally. ??This may represent postradiation changes. ??Within the right breast laterally there is a hypodense lesion measuring 5.0 x 5.6 cm with adjacent fibrotic changes favored to represent postoperative seroma. Lungs/Central Airways: The central airways are patent. ??There is no focal consolidation, mass or pneumothorax. CT ABDOMEN FINDINGS: Liver/Gallbladder/Bile Ducts: ??No focal liver lesions are identified. ??There are no radiopaque gallstones. ??There is no bile duct dilatation. Spleen/Pancreas/Kidneys/Adrenal Glands: ??The spleen, pancreas, kidneys, and adrenal glands are normal. Vasculature: ??Calcific aortoiliac atherosclerosis is present. Lymph Nodes/Peritoneum/Mesentery/Omentum: ??There is no upper abdominal free fluid, free air, or lymph node enlargement. Stomach and Bowel: ??There are no dilated small bowel loops to suggest small bowel obstruction. Body Wall: ??Degenerative disc disease is present in the spine. ??Postsurgical changes compatible with prior ventral abdominal hernia repair with mesh in place is noted. ??A hypodense lesion present within the subcutaneous tissues immediately anteriorly to this measuring 9.3 x 8.0 x at least 10 cm is present. ??This is incompletely imaged in its inferior aspect. ??This likely represents a postoperative seroma. ?? Support Devices: ??None. CONCLUSIONS: 1. ??No evidence of metastatic disease to the chest or abdomen. 2. ??Stable postoperative seroma within the right breast and anterior abdominal wall. THIS IS AN ELECTRONICALLY VERIFIED REPORT 08/25/2014 6:25 PM: ??Deshawn Comer M.D. Deshawn Comer M.D. JA:[email or web address] 02:06 PM 02:45 PM AMB [EOD] Procedure Note Provider, MD Almita - 07/28/2020 EXAMINATION: CT CHEST AND ABDOMEN WITH CONTRAST HISTORY: Breast cancer with metastatic disease. Restaging examination TECHNIQUE: Contrast enhanced helical CT of the chest and abdomen was performed. 100 mL of Omnipaque 350 was administered uneventfully via the right antecubital vein. COMPARISON: CT of the chest and abdomen dated January 23, 2014 CT CHEST FINDINGS: Support Devices: None. Heart/Pericardium/Great Vessels: Cardiac size is normal. There is no pericardial effusion. The great vessels of the chest are normal incaliber. Pleural Spaces: The pleural spaces are clear. Mediastinum/Cari: There is no mediastinal or hilar lymph nodeenlargement. Neck Base/Chest Wall/Diaphragm: There is no supraclavicular or axillarylymph node enlargement. Limited imaging through the upper abdomen is withinnormal limits. Mild degenerative spondylosis is present in the spine. There is diffuse cutaneous thickening of the breast bilaterally. This mayrepresent postradiation changes. Within the right breast laterally there is ahypodense lesion measuring 5.0 x 5.6 cm with adjacent fibrotic changes favored to represent postoperative seroma. Lungs/Central Airways: The central airways are patent. There is no focal consolidation, mass or pneumothorax. CT ABDOMEN FINDINGS: Liver/Gallbladder/Bile Ducts: No focal liver lesions are identified.There are no radiopaque gallstones. There is no bile duct dilatation. Spleen/Pancreas/Kidneys/Adrenal Glands: The spleen, pancreas, kidneys,and adrenal glands are normal. Vasculature: Calcific aortoiliac atherosclerosis is present. Lymph Nodes/Peritoneum/Mesentery/Omentum: There is no upper abdominalfree fluid, free air, or lymph node enlargement. Stomach and Bowel: There are no dilated small bowel loops to suggestsmall bowel obstruction. Body Wall: Degenerative disc disease is present in the spine.Postsurgical changes compatible with prior ventral abdominal hernia repair with mesh in place is noted. A hypodense lesion present within the subcutaneoustissues immediately anteriorly to this measuring 9.3 x 8.0 x at least 10 cm is present. This is incompletely imaged in its inferior aspect. This likely represents a postoperative seroma. Support Devices: None. CONCLUSIONS: 1. No evidence of metastatic disease to the chest or abdomen. 2. Stable postoperative seroma within the right breast and anteriorabdominal wall. THIS IS AN ELECTRONICALLY VERIFIED REPORT 08/25/2014 6:25 PM: Deshawn Comer M.D. Deshawn Comer M.D. JA:[email or web address] 02:06 PM 02:45 PM AMB [EOD] Damon Swanson DO IMG CT PROCEDURES Final Resu lt * CT Chest W Contrast (08/22/2014 12:00 AM CDT) Anatomical Region Laterality Modality Body N/A Computed Tomogra phy 08/22/2014 Narrative 08/25/2014 6:38 PM CDT EXAMINATION: CT CHEST AND ABDOMEN WITH CONTRAST HISTORY: Breast cancer with metastatic disease. ??Restaging examination ?? TECHNIQUE: ??Contrast enhanced helical CT of the chest and abdomen was performed. 100 mL of Omnipaque 350 was administered uneventfully via the right antecubital vein. COMPARISON: CT of the chest and abdomen dated January 23, 2014 CT CHEST FINDINGS: ?? Support Devices: ??None. Heart/Pericardium/Great Vessels: ??Cardiac size is normal. ??There is no pericardial effusion. ??The great vessels of the chest are normal in caliber. Pleural Spaces: ??The pleural spaces are clear. Mediastinum/Cari: ??There is no mediastinal or hilar lymph node enlargement. Neck Base/Chest Wall/Diaphragm: ??There is no supraclavicular or axillary lymph node enlargement. ??Limited imaging through the upper abdomen is within normal limits. ??Mild degenerative spondylosis is present in the spine. There is diffuse cutaneous thickening of the breast bilaterally. ??This may represent postradiation changes. ??Within the right breast laterally there is a hypodense lesion measuring 5.0 x 5.6 cm with adjacent fibrotic changes favored to represent postoperative seroma. Lungs/Central Airways: The central airways are patent. ??There is no focal consolidation, mass or pneumothorax. CT ABDOMEN FINDINGS: Liver/Gallbladder/Bile Ducts: ??No focal liver lesions are identified. ??There are no radiopaque gallstones. ??There is no bile duct dilatation. Spleen/Pancreas/Kidneys/Adrenal Glands: ??The spleen, pancreas, kidneys, and adrenal glands are normal. Vasculature: ??Calcific aortoiliac atherosclerosis is present. Lymph Nodes/Peritoneum/Mesentery/Omentum: ??There is no upper abdominal free fluid, free air, or lymph node enlargement. Stomach and Bowel: ??There are no dilated small bowel loops to suggest small bowel obstruction. Body Wall: ??Degenerative disc disease is present in the spine. ??Postsurgical changes compatible with prior ventral abdominal hernia repair with mesh in place is noted. ??A hypodense lesion present within the subcutaneous tissues immediately anteriorly to this measuring 9.3 x 8.0 x at least 10 cm is present. ??This is incompletely imaged in its inferior aspect. ??This likely represents a postoperative seroma. ?? Support Devices: ??None. CONCLUSIONS: 1. ??No evidence of metastatic disease to the chest or abdomen. 2. ??Stable postoperative seroma within the right breast and anterior abdominal wall. THIS IS AN ELECTRONICALLY VERIFIED REPORT 08/25/2014 6:24 PM: ??Deshawn Comer M.D. [place] Post:[email or web address] 02:06 PM 02:20 PM AMB [EOD] Procedure Note Provider, MD Almita - 07/28/2020 EXAMINATION: CT CHEST AND ABDOMEN WITH CONTRAST HISTORY: Breast cancer with metastatic disease. Restaging examination TECHNIQUE: Contrast enhanced helical CT of the chest and abdomen was performed. 100 mL of Omnipaque 350 was administered uneventfully via the right antecubital vein. COMPARISON: CT of the chest and abdomen dated January 23, 2014 CT CHEST FINDINGS: Support Devices: None. Heart/Pericardium/Great Vessels: Cardiac size is normal. There is no pericardial effusion. The great vessels of the chest are normal incaliber. Pleural Spaces: The pleural spaces are clear. Mediastinum/Cari: There is no mediastinal or hilar lymph nodeenlargement. Neck Base/Chest Wall/Diaphragm: There is no supraclavicular or axillarylymph node enlargement. Limited imaging through the upper abdomen is withinnormal limits. Mild degenerative spondylosis is present in the spine. There is diffuse cutaneous thickening of the breast bilaterally. This mayrepresent postradiation changes. Within the right breast laterally there is ahypodense lesion measuring 5.0 x 5.6 cm with adjacent fibrotic changes favored to represent postoperative seroma. Lungs/Central Airways: The central airways are patent. There is no focal consolidation, mass or pneumothorax. CT ABDOMEN FINDINGS: Liver/Gallbladder/Bile Ducts: No focal liver lesions are identified.There are no radiopaque gallstones. There is no bile duct dilatation. Spleen/Pancreas/Kidneys/Adrenal Glands: The spleen, pancreas, kidneys,and adrenal glands are normal. Vasculature: Calcific aortoiliac atherosclerosis is present. Lymph Nodes/Peritoneum/Mesentery/Omentum: There is no upper abdominalfree fluid, free air, or lymph node enlargement. Stomach and Bowel: There are no dilated small bowel loops to suggestsmall bowel obstruction. Body Wall: Degenerative disc disease is present in the spine.Postsurgical changes compatible with prior ventral abdominal hernia repair with mesh in place is noted. A hypodense lesion present within the subcutaneoustissues immediately anteriorly to this measuring 9.3 x 8.0 x at least 10 cm is present. This is incompletely imaged in its inferior aspect. This likely represents a postoperative seroma. Support Devices: None. CONCLUSIONS: 1. No evidence of metastatic disease to the chest or abdomen. 2. Stable postoperative seroma within the right breast and anteriorabdominal wall. THIS IS AN ELECTRONICALLY VERIFIED REPORT 08/25/2014 6:24 PM: Deshawn Comer M.D. Deshawn Comer M.D. JA:[email or web address] 02:06 PM 02:20 PM AMB [EOD] Damon Swanson DO IMG CT PROCEDURES Final Resu lt documented in this encounter Visit Diagnoses Diagnosis Malignant neoplasm of breast (female) (HCC) Malignant neoplasm of breast (female), unspecified site Observation for suspected malignant neoplasm documented in this encounter
--- OUTSIDE RECORDS SUMMARY | 2024-02-26 21:39 | XMS_ITS | Encounter Summary ---
Author Organization [facility] Address [address] [place] [address] Phone Care Team Providers Care Tool Or Die Drawing Checker Name Role Phone Zeke Puente MD Primary Care Provider Annamaria Mosqueda DO Unavailable [phone] Reason for Visit * Reason Comments Follow-up Encounter Details Date Type Department Care Team (Late st Contact Info) Description 10/30/2017 11:00 AM CDT Office Visit [facility] [address] [place] [phone] Annamaria Mosqueda, DO [address] [address] Malignant neoplasm of left breast in female, estrogen receptor negative, unspecified site of breast (CMS/HCC) (Primary Dx) Social History Tobacco Use Types Packs/Day Years Used Date Smoking Tobacco: Never Smokeless Tobacco: Never Alcohol Use Standard Drinks/Week Comments No 0 (1 standard drink = 0.6 oz pur e alcohol) Comments Unknown Sex and Gender Information Value Date Recorded Sex Assigned at Not on file 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 Gender Identity Not on file Sexual Orientation Not on file documented as of this encounter Last Filed Vital Signs Vital Sign Reading Time Taken Comments Blood Pressure 161/80 10/30/2017 11:58 AM CDT Pulse 83 10/30/2017 11:58 AM CDT Temperature 36.6 ??C (97.9 ??F) 10/30/2017 11:58 AM C DT Respiratory Rate - - Oxygen Saturation - - Inhaled Oxygen Concentration - - Weight 94.8 kg (209 lb) 10/30/2017 11:58 AM CDT Height 154.9 cm (5' 1 ) 10/30/2017 11:58 AM CDT Body Mass Index 39.49 10/30/2017 11:58 AM CDT documented in this encounter Ordered Prescriptions Prescription Sig Dispense Quantity Refills Last Filled Start Date End Date donepezil (ARICEPT) 5 mg tabletIndications: memory Take 1 tablet (5 mg total) by mouth nightly. 30 tablet 3 10/30/2017 11/20/2019 cefuroxime (CEFTIN) 500 mg tabletIndications: Skin/Soft Tissue Infection Take 1 tablet (500 mg total) by mouth 2 (two) times a day for 10 days. 20 tablet 10/30/2017 11/09/2017 acyclovir (ZOVIRAX) 400 mg tabletIndications: Skin/Soft Tissue Infection Take 1 tablet (400 mg total) by mouth 2 (two) times a day for 7 days. 14 tablet 10/30/2017 11/06/2017 documented in this encounter Progress Notes * Annamaria Mosqueda, DO - 10/30/2017 11:00 AM CDT Images from the original note were not included. Patient ID: Iris Pascual is a 62 y.o. female. Referring Physician: Zeke Puente MD [address] [place] [address] Primary Care Provider: Zeke Puente MD Assessment/Plan 1. Bilateral breast cancers. Clinically, I do not find any evidence of recurrent disease. I will see her back in 3 months with repeat blood work and examination. I will follow-up on her latest mammograms. 2. Dementia. I refilled her Aricept medication which she is taking at 5 mg daily. 3. Chronic seroma of the right breast. She will continue with conservative measures. 4. Diffuse arthralgias due to underlying advanced arthritis. She will continue with [id number] medications. 5. Viral versus bacterial cutaneous infection. I will give her prescriptions of Ceftin and acyclovir. Patient Active Problem List Diagnosis ??? Malignant neoplasm of upper-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, estrogen receptor negative (CMS/HCC) Diagnoses and all orders for this visit: Malignant neoplasm of left breast in female, estrogen receptor negative, unspecified site of breast(CMS/HCC) (Primary) - Clinic Appointment Request Follow up; ANNAMARIA MOSQUEDA MD; Future - Lab Draw Appt Request Arm Draw or Central Line Draw? Arm; Future - CBC with auto differential; Future - Comprehensive metabolic panel; Future - Cancer antigen 15-3; Future Other orders - acyclovir (ZOVIRAX) 400 mg tablet; Take 1 tablet (400 mg total) by mouth 2 (two) times a day for 7 days. - cefuroxime (CEFTIN) 500 mg tablet; Take 1 tablet (500 mg total) by mouth 2 (two) times a day for 10 days. - donepezil (ARICEPT) 5 mg tablet; Take 1 tablet (5 mg total) by mouth nightly. Subjective Interval History: 1. Stage IV inflammatory [...] 2011. She then underwent adjuvant radiation therapy did both breasts chest zamora finishing in July of 2011. 6. Patient has remain in a complete remission ever since that time. 7. Chronic seroma of the right breast. 8. Chronic sensory neuropathy involving the fingertips, toes and feet. She did not tolerate Neurontin well. 9. Progressive dementia. She has been on intermittent oral therapy without much success. 10. She comes in today complaining of multiple problems. See review of systems Interval Notes: I have reviewed: allergies, current medications, past family history, past medical history, past social history, past surgical history and problem list HPI Review of Systems Constitutional: Positive for fatigue. Negative for appetite change and chills. HENT: Positive for sore throat and dry mouth. Eyes: Negative. Respiratory: Negative. Cardiovascular: Positive for peripheral swelling. Gastrointestinal: Negative. Endocrine: Negative. Genitourinary: Positive for frequency. Musculoskeletal: Positive for arthralgias, back pain, gait problem (uses cane) and myalgias. Skin: Positive for itching, rash and dryness. Neurological: Positive for extremity weakness and gait problem (uses cane). Hematological: Bruises/bleeds easily. Psychiatric/Behavioral: Positive for confusion and decreased concentration. Objective Physical Exam: Vital Signs for this encounter: BSA: 2.02 meters squared BP 161/80 (BP Location: Right arm) Pulse 83 Temp 36.6 ??C (97.9 ??F) Ht 154.9 cm (5' 1 ) Wt94.8 kg (209 lb) BMI 39.49 kg/m?? Physical Exam Constitutional: She is oriented [...] swelling. Abdominal: Soft. Bowel sounds are normal. Musculoskeletal: She exhibits edema (pitting edema of ankles, feet, and distal tibias). Right knee: She exhibits decreased range of motion. Left knee: She exhibits decreased range of motion. Neurological: She is alert and oriented to person, place, and time. She exhibits abnormal muscle tone (lower legs). Gait (unsteady but controlled with cane) abnormal. Skin: Skin is warm and dry. Rash (erythematous maculopapular lesions on lower legs with crusty cores) noted. There is pallor. Psychiatric: She has a normal mood and affect. Her behavior is normal. Performance Status: Symptomatic; fully ambulatory Results: WBC Date Value Ref Range Status 10/30/2017 3.4 3.4 - 10.8 x10E3/uL Final Hgb Date Value Ref Range Status 10/30/2017 10.6 (L) 11.1 - 15.9 g/dL Final Hct Date Value Ref Range Status 10/30/2017 31.3 (L) 34.0 - 46.6 % Final Platelets Date Value Ref Range Status 10/30/2017 192 150 - 379 x10E3/uL Final Creatinine, Serum Date Value Ref Range Status 10/30/2017 0.87 0.57 - 1.00 mg/dL Final AST Date Value Ref Range Status 10/30/2017 77 (H) 0 - 40 IU/L Final documented in this encounter Miscellaneous Notes * Addendum Note - Cheko Alexander RN - 10/30/2017 11:00 AM CDTAddended by: CHEKO ALEXANDER on: 05/09/2018 11:32 AM Modules accepted: Orders IAC CATH LAB MANAGER * Addendum Note - Cheko Alexander RN - 10/30/2017 11:00 AM CDTAddended by: CHEKO ALEXANDER on: 05/09/2018 11:33 AM Modules accepted: Orders IAC CATH LAB MANAGER documented in this encounter Plan of Treatment Scheduled Orders Name Type Priority Associated Diagnoses Orde r Schedule Comprehensive metabolic panel Lab Routine Malignant neoplasm of left breast in female, estrogen receptor negative, unspecified site of breast (CMS/HCC) Expected: 05/15/2018, Expires: 10/30/2018 Cancer antigen 15-3 Lab Routine Malignant neoplasm of left breast in female, estrogen receptor negative, unspecified site of breast (CMS/HCC) Expected: 05/15/2018, Expires: 10/30/2018 documented as of this encounter Procedures Procedure Name Priority Date/Time Associated Diagnosis Comments CBC WITH AUTO DIFFERENTIAL Routine 05/15/2018 9:38 AM CARDIAC CATH LAB MANAGER Malignant neoplasm of left breast in female, estrogen receptor negative, unspecified site of breast (CMS/HCC) documented in this encounter Results * (ABNORMAL) CBC with auto differential (05/15/2018 9:38 AM CARDIAC CATH LAB MANAGER) WBC 4.1 3.4 - 10.8 x10E3/uL [facility] - 01 RBC 3.66(L) 3.77 - 5.28 x10E6/uL [facility] - 01 Hgb 11.2 11.1 - 15.9 g/dL [facility] - 01 Hct 33.4(L) 34.0 - 46.6 % [facility] - 01 MCV 91 79 - 97 fL [facility] - 01 MCH 30.6 26.6 - 33.0 pg [facility] - 01 MCHC 33.5 31.5 - 35.7 g/dL [facility] - 01 Rdw 14.2 12.3 - 15.4 % [facility] - 01 Platelets 223 150 - 379 x10E3/uL [facility] - 01 Neutrophils pct 57 Not Estab. % [facility] - 01 Lymphs pct 35 Not Estab. % [facility] - 01 Monocytes pct 6 Not Estab. % [facility] - 01 Eosinophils pct 2 Not Estab. % [facility] - 01 Basophil pct 0 Not Estab. % [facility] - 01 Neutrophil abs 2.4 1.4 - 7.0 x10E3/uL [facility] - 01 Lymphs (Absolute) 1.4 0.7 - 3.1 x10E3/uL [facility] - 01 Monocyte abs 0.2 0.1 - 0.9 x10E3/uL [facility] - 01 Eosinophils, abs 0.1 0.0 - 0.4 x10E3/uL [facility] - 01 Basophils, abs 0.0 0.0 - 0.2 x10E3/uL [facility] - 01 Blood specimen (specimen) 05/15/2018 9:38 AM CARDIAC CATH LAB MANAGER 05/15/2018 Narrative [facility] - 05/15/2018 10:45 AM CARDIAC CATH LAB MANAGER Performed at: ??01 - [facility] [address] [facility] [place], [place] [id number] Firewall Engineer: Rodrigo Escobar MD, Phone: ??[phone] Annamaria Mosqueda DO LAB BLOOD ORDERABLES Final R esult [facility] - 01 documented in this encounter Visit Diagnoses Diagnosis Malignant neoplasm of left breast in female, estrogen receptor negative, unspecified site of breast (HCC)- Primary documented in this encounter Historical Medications * This list may reflect changes made after this encounter. gabapentin (NEURONTIN) 100 mg capsule Take by mouth 3 (three) times a day. 0 19 amLODIPine (NORVASC) 10 mg tablet 0 08/09/2017 06/17/19 21 lisinopril (PRINIVIL,ZESTR [place]) 20 mg tablet 0 08/09/2017 11/20/19 20 atorvastatin (LIPITOR) 80 mg tablet 0 08/08/2017 11/20/19 20 insulin glargine (LANTUS U-100 INSULIN) 100 unit/mL injection 03/21/2017Lantus, inj 100/ml Vial (ml)sub-Qas directedCurrent Medication 03/21/2017 11/20/19 20 added in this encounter Orders Appointment Requests Count Last Ordered Date Fi rst Ordered Date [facility] CLINIC APPOINTMENT REQUEST 1 019 [facility] LAB APPOINTMENT 1 05/15/2018 documented in this encounter Care Teams Tool Or Die Drawing Checker Relationship Specialty Start Date End Date Zeke Puente MD [address] [place] [address] PCP - General 07/10/17 06/11/18 Annamaria Mosqueda DO [address] [place] [address] Medical Oncologist/Passport Application Examiner Hematology and Oncology 10/25/17 documented as of this encounter
--- OUTSIDE RECORDS SUMMARY | 2024-02-26 21:39 | XMS_ITS | Encounter Summary ---
Author Organization [facility] Healthcare Address [address] [place] [address] Care Team Providers Care Environment Coordinator Name Role Phone Unavailable Primary Care Provider Unavailabl e Encounter Details Date Type Department Care Team (Latest Contact Info) Description 08/16/2013 12:43 PM CDT Hospital Encounter [facility] OP Crow Payne MD [address] [place] [address] Incisional hernia; Pre-operative cardiovascular examination Social History Tobacco Use Types Packs/Day Years Used Date Smoking Tobacco: Never Assessed Comments Unknown Sex and Gender Information Value Date Recorded Sex Assigned at Not on file 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
--- OUTSIDE RECORDS SUMMARY | 2024-02-26 21:39 | XMS_ITS | Encounter Summary ---
Author Organization [facility] Address [address] [place] [address] Phone Care Team Providers Care Percussion Instrument Tuner Name Role Phone Zeke Puente MD Primary Care Provider [phone] Damon Swanson DO Unavailable [phone] Encounter Details Date Type Department Care Team (Late st Contact Info) Description 04/30/2018 Telephone [facility] Oncology [address] [place] [address] Erica Bassett BSN Social History Tobacco Use Types Packs/Day Years Used Date Smoking Tobacco: Never Smokeless Tobacco: Never Alcohol Use Standard Drinks/Week Comments No 0 (1 standard drink = 0.6 oz pur e alcohol) Comments Unknown Sex and Gender Information Value Date Recorded Sex Assigned at Not on file Legal Sex Female 12: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 Gender Identity Not on file Sexual Orientation Not on file documented as of this encounter Miscellaneous Notes * Telephone Encounter - Erica Bassett BSN - 04/30/2018 3:22 PM CLASSROOM INSTRUCTIONAL AIDE Called patient and LVM regarding rescheduling missed appointments SROOM INSTRUCTIONAL AIDE documented in this encounter Plan of Treatment Not on file documented as of this encounter Visit Diagnoses Not on filedocumented in this encounter Care Teams Percussion Instrument Tuner Relationship Specialty Start Date End Date Zeke Puente MD [address] [place] [address] PCP - General 07/10/17 06/11/18 Damon Swanson DO [address] [place] [id number] Medical Oncologist/Chute Puller Hematology and Oncology 10/25/17 documented as of this encounter
--- OUTSIDE RECORDS SUMMARY | 2024-02-26 21:39 | XMS_ITS | Encounter Summary ---
Author Organization [facility] Address [address] [place] [address] Care Team Providers Care Coil Wrapper Name Role Phone Unavailable Primary Care Provider Unavailabl e Encounter Details Date Type Department Care Team (Latest Contact Info) Description 12/26/2016 10:50 AM CDT Hospital Encounter [facility] OP Damon Swanson, DO [facility] [id number] Encounter for screening mammogram for malignant neoplasm of breast; Personal history of malignant neoplasm of breast; Encounter for follow-up examination after completed treatment for malignant neoplasm Social History Tobacco Use Types Packs/Day Years Used Date Smoking Tobacco: Never Assessed Comments Unknown Sex and Gender Information Value Date Recorded Sex Assigned at Not on file 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 Engineer Process: Layne VIVEROS (R)(M), [facility] letter sent: Normal Exam ?? Reading location: [facility] BI-RADS: 2 Benign [EOD] Narrative 12/26/2016 11:38 [...] mammogram, 11/07/2014 mammogram, and 10/30/2013 mammogram - [facility]. ?? BREAST TISSUE: The tissue [...] 12/18/2015 mammogram,11/07/2014 mammogram, and 10/30/2013 mammogram - [facility]. BREAST TISSUE: The tissue of [...] signed by: Edwar Deng M.D., md/:12/26/2016 11:34:53 Engineer Process: Layne Iniguez RT (R)(M), [facility] letter sent: Normal Exam Reading location: [facility] BI-RADS: 2 Benign [EOD] us Damon Swanson DO IMG MAMMO PROCEDURES Final R esult * GENERAL RADIOLOGY REPORT (12/26/2016 12:00 AM CDT) Anatomical Region Laterality Modality Radiographic Sylvia ging Narrative 12/26/2016 12:00 AM CDT Ordered by an unspecified provider. us Historical Provider MD MONTERO XR PROCEDURES Final R esult documented in this encounter Visit Diagnoses Diagnosis Encounter for screening mammogram for malignant neoplasm of breast Personal history of malignant neoplasm of breast Encounter for follow-up examination after completed treatment for malignant neoplasm documented in this encounter
--- OUTSIDE RECORDS SUMMARY | 2024-02-26 21:39 | XMS_ITS | Encounter Summary ---
Author Organization [facility] Address [address] [place] [address] Phone Care Team Providers Care Instructional Technology Coach Name Role Phone Damon SwansonTesha DO Unavailable [phone] Rene Shelton MD Primary Care Provider [phone] Encounter Details Date Type Department Care Team (Late st Contact Info) Description 06/12/2018 12:30 PM CDT Lab [facility] Oncology [address] [place] [id number] Malignant neoplasm of upper-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, estrogen receptor negative (CMS/HCC); Malignant neoplasm of left breast in female, [...] on file 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 Gender Identity Not on file Sexual Orientation Not on file documented as of this encounter Plan of Treatment Not on file documented as of this encounter Visit Diagnoses Diagnosis Malignant neoplasm of upper-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, estrogen receptor negative (HCC) Malignant neoplasm of left breast in female, estrogen receptor negative, unspecified site of breast (HCC) documented in this encounter Orders Appointment Requests Count Last Ordered Date Fi rst Ordered Date ONCBCN LAB APPOINTMENT 1 06/12/2018 documented in this encounter Care Teams Instructional Technology Coach Relationship Specialty Start Date End Date Rene Shelton MD [address] [id number] PCP - General Family Medicine 06/12/18 12/01/18 Damon Swanson DO [address] [id number] Medical Oncologist/Manager Mall Hematology and Oncology 10/25/17 documented as of this encounter
--- OUTSIDE RECORDS SUMMARY | 2024-02-26 21:39 | XMS_ITS | Encounter Summary ---
Author Organization [facility] Healthcare Address [address] [place] [address] Care Team Providers Care Tobacco Sweeper Name Role Phone Unavailable Primary Care Provider Unavailabl e Encounter Details Date Type Department Care Team (Latest Contact Info) Description 11/07/2014 10:25 AM CDT Hospital Encounter [facility] Rene Fowler MD [address] [place] [id number] Encounter for screening mammogram for high-risk patient; Personal history of malignant neoplasm of breast Social History Tobacco Use Types Packs/Day Years Used Date Smoking Tobacco: Never Assessed Comments Unknown Sex and Gender Information Value Date Recorded Sex Assigned at Not on file 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 Stable post-surgical sites, bilateral breasts. ??Persistent benign post-operative fluid collection in the right breast. 2. There is no mammographic evidence of malignancy. A 1 year screening mammogram is recommended. ?? The patient has been or will be contacted. ?? Electronically signed by: Laith Webb M.D. ab/:11/07/2014 11:34:29 ?? Billing Clinician: Dina VIVEROS(R)(M), [facility] [facility] letter sent: Normal Exam ?? Reading location: BI-RADS: 2 Benign [EOD] Narrative 11/07/2014 11:35 AM CDT - [facility] BILAT DIAGNOSTIC 3D W/CAD BILATERAL DIGITAL DIAGNOSTIC MAMMOGRAM 3D/2D WITH CAD WITH MEDIOLATERAL OBLIQUE CRANIOCAUDAL: 11/07/2014 The study was acquired using full field digital technology and interpreted from soft copy. ?? Current study was also evaluated with ICAD version 7.2. CLINICAL: 59-year-old female status post bilateral lumpectomy in October 2010 for bilateral invasive ductal carcinoma. ??Patient underwent subsequent excision in the upper outer quadrant of the left breast at the lumpectomy site in April 2011, which demonstrated invasive ductal carcinoma. ?? COMPARISONS: Comparison is made to exams dated: ??10/30/2013 mammogram, 10/30/2012 mammogram, 04/26/2012 mammogram, and 10/25/2011 mammogram - [facility]. ?? BREAST TISSUE: The tissue of both breasts is almost entirely fatty. ?? FINDINGS: There are post lumpectomy changes in the upper outer quadrant, posterior depth of the bilateral breasts. ??There is a partially visualized high attenuation mass in the right breast at the lumpectomy site, consistent with the known post-surgical fluid collection. ??This is not suspiciously changed in appearance since the prior exam. ??There is mild skin and trabecular thickening in the bilateral breasts, likely related to prior radiation therapy. ??There are no suspicious masses, calcifications, or other findings in either breast. ?? There has been no suspicious interval change. Procedure Note Provider, MD Almita - 07/28/2020 - [facility] BILAT DIAGNOSTIC 3D W/CAD BILATERAL DIGITAL DIAGNOSTIC MAMMOGRAM 3D/2D WITH CAD WITH MEDIOLATERALOBLIQUE CRANIOCAUDAL: 11/07/2014 The study was acquired using full field digital technology and interpretedfrom soft copy. Current study was also evaluated with ICAD version 7.2. CLINICAL: 59-year-old female status post bilateral lumpectomy in October2010 for bilateral invasive ductal carcinoma. Patient underwent subsequentexcision in the upper outer quadrant of the left breast at the lumpectomy site in April 2011, which demonstrated invasive ductal carcinoma. COMPARISONS: Comparison is made to exams dated: 10/30/2013 mammogram,10/30/2012 mammogram, 04/26/2012 mammogram, and 10/25/2011 mammogram - [facility]. BREAST TISSUE: The tissue of both breasts is almost entirely fatty. FINDINGS: There are post lumpectomy changes in the upper outer quadrant, posterior depth of the bilateral breasts. There is a partially visualizedhigh attenuation mass in the right breast at the lumpectomy site, consistentwith the known post-surgical fluid collection. This is not suspiciouslychanged in appearance since the prior exam. There is mild skin and trabecularthickening in the bilateral breasts, likely related to prior radiation therapy.There are no suspicious masses, calcifications, or other findings in either breast. There has been no suspicious interval change. IMPRESSION: BIRADS 2: BENIGN 1. Stable post-surgical sites, bilateral breasts. Persistent benign post-operative fluid collection in the right breast. 2. There is no mammographic evidence of malignancy. A 1 year screening mammogram is recommended. The patient has been or will be contacted. Electronically signed by: Laith Webb M.D. ab/:11/07/2014 11:34:29 Billing Clinician: Dina VIVEROS(Yocasta)(M), [facility] letter sent: Normal Exam Reading location: BI-RADS: 2 Benign [EOD] us Rene Fowler MD IMG MAMMO PROCEDURES Final Result * GENERAL RADIOLOGY REPORT (11/07/2014 12:00 AM CDT) Anatomical Region Laterality Modality Radiographic Sylvia ging Narrative 11/07/2014 12:00 AM CDT Ordered by an unspecified provider. us Historical Provider MD MONTERO XR PROCEDURES Final R esult documented in this encounter Visit Diagnoses Diagnosis Encounter for screening mammogram for high-risk patient Personal history of malignant neoplasm of breast documented in this encounter
--- OUTSIDE RECORDS SUMMARY | 2024-02-26 21:39 | XMS_ITS | Encounter Summary ---
Author Organization [facility] Healthcare Address [address] [place] [address] Care Team Providers Care Gun Fitter Name Role Phone Unavailable Primary Care Provider Unavailabl e Encounter Details Date Type Department Care Team (Latest Contact Info) Description 03/02/2015 8:45 AM MECHANICAL PIPING DESIGNER Hospital Encounter [facility] OP Damon Swanson, DO [facility] [id number] Malignant neoplasm of female breast (CMS/HCC); Secondary malignant neoplasm (CMS/HCC); Encounter for observation for other suspected diseases and conditions ruled out Social History Tobacco Use Types Packs/Day Years Used Date Smoking Tobacco: Never Assessed Comments Unknown Sex and Gender Information Value Date Recorded Sex Assigned at Not on file Legal Sex Female 12:30 PM MECHANICAL PIPING DESIGNER Gender Identity Not on file Sexual Orientation Not on file documented as of this encounter Plan of Treatment Not on file documented as of this encounter Procedures Procedure Name Priority Date/Time Associated Diagnosis Comments CT CHEST W CONTRAST Routine 03/02/2015 9 :30 AM MECHANICAL PIPING DESIGNER CT ABDOMEN W CONTRAST Routine 03/02/2015 9:00 AM MECHANICAL PIPING DESIGNER documented in this encounter Results * CT Chest W Contrast (03/02/2015 9:30 AM MECHANICAL PIPING DESIGNER) Anatomical Region Laterality Modality Body N/A Computed Tomogra phy 03/02/2015 9:30 AM MECHANICAL PIPING DESIGNER Impressions 03/02/2015 3:59 PM MECHANICAL PIPING DESIGNER ?? 1. ??No definite metastatic disease within the chest or abdomen. 2. ??Stable postoperative seromas involving the right breast in the anterior abdominal wall. 3. ??Incidental findings as discussed above THIS IS AN ELECTRONICALLY VERIFIED REPORT 03/02/2015 3:57 PM: ??Kathy Contreras M.D. Kathy Contreras M.D. TB:giuliana 12:43 PM 12:48 PM BOR [EOD] Narrative 03/02/2015 3:59 PM MECHANICAL PIPING DESIGNER EXAMINATION: ??CT chest and abdomen with contrast HISTORY: Restaging metastatic breast carcinoma. TECHNIQUE: ??Axial images were obtained through the chest and abdomen following intravenous administration of 100 mL of Omnipaque 350 via a right antecubital IV without immediate adverse reaction. ??Sagittal and coronal reconstructions were performed. COMPARISON: ??08/22/2014, 01/23/2014, 08/01/2013 and 02/05/2013 FINDINGS: ?? CT chest: ??There is no axillary lymphadenopathy. ??There is a collection noted within the lateral aspect of the right breast, measuring approximately 5.1 x 6 cm, most likely postoperative seroma, stable in size. ??Calcifications within the right breast are stable. There are visible but nonenlarged mediastinal and hilar nodes, some of which are calcified. ??The esophagus is unremarkable. ??The thoracic aorta is unremarkable. ??The heart is at the upper limits of normal in size with trace pericardial fluid, similar to the previous examination. There is no pleural effusion. Scarring within the left apex is stable. ??There are mild dependent atelectatic changes. ??There is no discrete consolidation. ??No pulmonary mass or cavitary lesion. ??No pneumothorax. CT abdomen: ??There is no discrete hepatic mass. ??The gallbladder is unremarkable. ??The biliary tree is nondilated. ??The pancreas and the adrenal glands are unremarkable. ??Granulomatous calcifications are noted within the spleen. ??There is no bowel obstruction. ??There is no mesenteric or retroperitoneal lymphadenopathy. ??Atherosclerotic calcification of the aorta is noted. ??The appendix is normal. ??Bowel loops are normal in caliber. ??No free intraperitoneal air or free fluid. Changes of prior ventral hernia repair with anterior mesh are noted. ??There is a hypodense lesion again identified within the subcutaneous tissues, measuring approximately 6.8 x 9.7 by at least 10 cm in maximum dimension. ??This is incompletely imaged inferiorly. ??Finding most likely reflects a postoperative seroma. ??The osseous structures reveal degenerative changes within the thoracic and lumbar spine. ??There is no aggressive appearing osseous lesion. Procedure Note Provider, MD Almita - 07/28/2020 EXAMINATION: CT chest and abdomen with contrast HISTORY: Restaging metastatic breast carcinoma. TECHNIQUE: Axial images were obtained through the chest and abdomenfollowing intravenous administration of 100 mL of Omnipaque 350 via a rightantecubital IV without immediate adverse reaction. Sagittal and coronalreconstructions were performed. COMPARISON: 08/22/2014, 01/23/2014, 08/01/2013 and 02/05/2013 FINDINGS: CT chest: There is no axillary lymphadenopathy. There is a collectionnoted within the lateral aspect of the right breast, measuring approximately 5.1x 6 cm, most likely postoperative seroma, stable in size. Calcificationswithin the right breast are stable. There are visible but nonenlarged mediastinal and hilar nodes, some ofwhich are calcified. The esophagus is unremarkable. The thoracic aorta is unremarkable. The heart is at the upper limits of normal in size withtrace pericardial fluid, similar to the previous examination. There is nopleural effusion. Scarring within the left apex is stable. There are mild dependentatelectatic changes. There is no discrete consolidation. No pulmonary mass orcavitary lesion. No pneumothorax. CT abdomen: There is no discrete hepatic mass. The gallbladder is unremarkable. The biliary tree is nondilated. The pancreas and theadrenal glands are unremarkable. Granulomatous calcifications are noted withinthe spleen. There is no bowel obstruction. There is no mesenteric or retroperitoneal lymphadenopathy. Atherosclerotic calcification of theaorta is noted. The appendix is normal. Bowel loops are normal in caliber. No free intraperitoneal air or free fluid. Changes of prior ventral hernia repair with anterior mesh are noted.There is a hypodense lesion again identified within the subcutaneous tissues,measuring approximately 6.8 x 9.7 by at least 10 cm in maximum dimension. This is incompletely imaged inferiorly. Finding most likely reflects apostoperative seroma. The osseous structures reveal degenerative changes within the thoracic and lumbar spine. There is no aggressive appearing osseouslesion. IMPRESSION: 1. No definite metastatic disease within the chest or abdomen. 2. Stable postoperative seromas involving the right breast in theanterior abdominal wall. 3. Incidental findings as discussed above THIS IS AN ELECTRONICALLY VERIFIED REPORT 03/02/2015 3:57 PM: Kathy Contreras M.D. Kathy Contreras M.D. TBbob 12:43 PM 12:48 PM BOR [EOD] us Damon Swanson DO IMG CT PROCEDURES Final Resu lt * CT Abdomen W Contrast (03/02/2015 9:00 AM MECHANICAL PIPING DESIGNER) Anatomical Region Laterality Modality Body N/A Computed Tomogra phy 03/02/2015 9:00 AM MECHANICAL PIPING DESIGNER Impressions 03/02/2015 12:43 PM MECHANICAL PIPING DESIGNER ?? 1. ??No definite metastatic disease within the chest or abdomen. 2. ??Stable postoperative seromas involving the right breast in the anterior abdominal wall. 3. ??Incidental findings as discussed above THIS IS AN ELECTRONICALLY VERIFIED REPORT 03/02/2015 12:40 PM: ??Kathy Contreras M.D. Kathy Contreras M.D. TB:jelena 12:40 PM 12:40 PM BOR [EOD] Narrative 03/02/2015 12:43 PM MECHANICAL PIPING DESIGNER EXAMINATION: ??CT chest and abdomen with contrast HISTORY: Restaging metastatic breast carcinoma. TECHNIQUE: ??Axial images were obtained through the chest and abdomen following intravenous administration of 100 mL of Omnipaque 350 via a right antecubital IV without immediate adverse reaction. ??Sagittal and coronal reconstructions were performed. COMPARISON: ??08/22/2014, 01/23/2014, 08/01/2013 and 02/05/2013 FINDINGS: ?? CT chest: ??There is no axillary lymphadenopathy. ??There is a collection noted within the lateral aspect of the right breast, measuring approximately 5.1 x 6 cm, most likely postoperative seroma, stable in size. ??Calcifications within the right breast are stable. There are visible but nonenlarged mediastinal and hilar nodes, some of which are calcified. ??The esophagus is unremarkable. ??The thoracic aorta is unremarkable. ??The heart is at the upper limits of normal in size with trace pericardial fluid, similar to the previous examination. There is no pleural effusion. Scarring within the left apex is stable. ??There are mild dependent atelectatic changes. ??There is no discrete consolidation. ??No pulmonary mass or cavitary lesion. ??No pneumothorax. CT abdomen: ??There is no discrete hepatic mass. ??The gallbladder is unremarkable. ??The biliary tree is nondilated. ??The pancreas and the adrenal glands are unremarkable. ??Granulomatous calcifications are noted within the spleen. ??There is no bowel obstruction. ??There is no mesenteric or retroperitoneal lymphadenopathy. ??Atherosclerotic calcification of the aorta is noted. ??The appendix is normal. ??Bowel loops are normal in caliber. ??No free intraperitoneal air or free fluid. Changes of prior ventral hernia repair with anterior mesh are noted. ??There is a hypodense lesion again identified within the subcutaneous tissues, measuring approximately 6.8 x 9.7 by at least 10 cm in maximum dimension. ??This is incompletely imaged inferiorly. ??Finding most likely reflects a postoperative seroma. ??The osseous structures reveal degenerative changes within the thoracic and lumbar spine. ??There is no aggressive appearing osseous lesion. Procedure Note Provider, MD Almita - 07/28/2020 EXAMINATION: CT chest and abdomen with contrast HISTORY: Restaging metastatic breast carcinoma. TECHNIQUE: Axial images were obtained through the chest and abdomenfollowing intravenous administration of 100 mL of Omnipaque 350 via a rightantecubital IV without immediate adverse reaction. Sagittal and coronalreconstructions were performed. COMPARISON: 08/22/2014, 01/23/2014, 08/01/2013 and 02/05/2013 FINDINGS: CT chest: There is no axillary lymphadenopathy. There is a collectionnoted within the lateral aspect of the right breast, measuring approximately 5.1x 6 cm, most likely postoperative seroma, stable in size. Calcificationswithin the right breast are stable. There are visible but nonenlarged mediastinal and hilar nodes, some ofwhich are calcified. The esophagus is unremarkable. The thoracic aorta is unremarkable. The heart is at the upper limits of normal in size withtrace pericardial fluid, similar to the previous examination. There is nopleural effusion. Scarring within the left apex is stable. There are mild dependentatelectatic changes. There is no discrete consolidation. No pulmonary mass orcavitary lesion. No pneumothorax. CT abdomen: There is no discrete hepatic mass. The gallbladder is unremarkable. The biliary tree is nondilated. The pancreas and theadrenal glands are unremarkable. Granulomatous calcifications are noted withinthe spleen. There is no bowel obstruction. There is no mesenteric or retroperitoneal lymphadenopathy. Atherosclerotic calcification of theaorta is noted. The appendix is normal. Bowel loops are normal in caliber. No free intraperitoneal air or free fluid. Changes of prior ventral hernia repair with anterior mesh are noted.There is a hypodense lesion again identified within the subcutaneous tissues,measuring approximately 6.8 x 9.7 by at least 10 cm in maximum dimension. This is incompletely imaged inferiorly. Finding most likely reflects apostoperative seroma. The osseous structures reveal degenerative changes within the thoracic and lumbar spine. There is no aggressive appearing osseouslesion. IMPRESSION: 1. No definite metastatic disease within the chest or abdomen. 2. Stable postoperative seromas involving the right breast in theanterior abdominal wall. 3. Incidental findings as discussed above THIS IS AN ELECTRONICALLY VERIFIED REPORT 03/02/2015 12:40 PM: Kathy Contreras M.D. Kathy Contreras M.D. TB:tb 12:40 PM 12:40 PM TREVIN [EOD] Damon Swanson DO IMG CT PROCEDURES Final Resu lt documented in this encounter Visit Diagnoses Diagnosis Malignant neoplasm of female breast (HCC) Malignant neoplasm of breast (female), unspecified site Secondary malignant neoplasm (HCC) Secondary malignant neoplasm of other specified sites Encounter for observation for other suspected diseases and conditions ruled out documented in this encounter
--- OUTSIDE RECORDS SUMMARY | 2024-02-26 21:39 | XMS_ITS | Encounter Summary ---
Author Organization [facility] Address [address] [place] [address] Phone Care Team Providers Care Registration Scheduling Specialist Name Role Phone Zeke Puente MD Primary Care Provider [phone] Damon Swanson DO Unavailable [phone] Encounter Details Date Type Department Care Team (Late st Contact Info) Description 05/15/2018 Orders Only [facility] Oncology [address] [place] [address] [place] [id number] Damon Swanson, DO [address] [facility] [address] [place] [address] Social History Tobacco Use Types Packs/Day Years Used Date Smoking Tobacco: Never Smokeless Tobacco: Never Alcohol Use Standard Drinks/Week Comments No 0 (1 standard drink = 0.6 oz pur e alcohol) Comments Unknown Sex and Gender Information Value Date Recorded Sex Assigned at Not on file Legal Sex Female 12:30 PM TRAFFIC ATTENDANT Gender Identity Not on file Sexual Orientation Not on file documented as of this encounter Plan of Treatment Not on file documented as of this encounter Procedures Procedure Name Priority Date/Time Associated Diagnosis Comments CANCER ANTIGEN 15-3 Routine 05/15/2018 9 :30 AM TRAFFIC ATTENDANT COMPREHENSIVE METABOLIC PANEL Routine 05/15/2018 9:30 AM TRAFFIC ATTENDANT documented in this encounter Results * (ABNORMAL) Cancer antigen 15-3 (05/15/2018 9:30 AM TRAFFIC ATTENDANT) Pathologist [facility] Cancer Antigen 15-3 38.1(H) 0.0 - 25.0 U/mL [facility] - 01 Comment: [facility] Electrochemiluminescence Immunoassay (ECLIA) Values obtained with different assay methods or kits cannot be used interchangeably. ??Results cannot be interpreted as absolute evidence of the presence or absence of malignant disease. 05/15/2018 9:30 AM TRAFFIC ATTENDANT 05/15/2018 Narrative [facility] - 05/16/2018 6:17 AM TRAFFIC ATTENDANT Performed at: ??01 - [address] ??[id number] [employer] Utility Worker: cJ Boyer PhD, Phone: ??[phone] Damon Swanson DO LAB BLOOD ORDERABLES Final R esult [facility] - 01 * (ABNORMAL) Comprehensive metabolic panel (05/15/2018 9:30 AM TRAFFIC ATTENDANT) Pathologist [facility] Glucose 440(H) 65 - 99 mg/dL [facility] - 01 BUN 16 8 - 27 mg/dL [facility] - 01 Creatinine, Serum 0.92 0.57 - 1.00 mg/dL [facility] - 01 eGFR If NonAfricn Am 66 >59 mL/min/1.7 3 [facility] - 01 eGFR If Africn Am 77 >59 mL/min/1.7 3 [facility] - 01 BUN/creat ratio 17 12 - 28 [facility] - 01 Sodium 137 134 - 144 mmol/L [facility] - 01 Potassium, sr 4.3 3.5 - 5.2 mmol/L [facility] - 01 Chloride 90(L) 96 - 106 mmol/L [facility] - 01 CO2 27 20 - 29 mmol/L [facility] - 01 Calcium 9.2 8.7 - 10.3 mg/dL [facility] - 01 Protein, sr 7.3 6.0 - 8.5 g/dL [facility] - 01 Albumin 4.3 3.6 - 4.8 g/dL [facility] - 01 Globulin, Total 3.0 1.5 - 4.5 g/dL [facility] - 01 A/G Ratio 1.4 1.2 - 2.2 [facility] - 01 Bilirubin, Total 0.8 0.0 - 1.2 mg/dL [facility] - 01 Alk phos 48 39 - 117 IU/L [facility] - 01 AST 30 0 - 40 IU/L [facility] - 01 ALT 28 0 - 32 IU/L [facility] - 01 05/15/2018 9:30 AM TRAFFIC ATTENDANT 05/15/2018 Narrative [facility] - 05/16/2018 6:17 AM TRAFFIC ATTENDANT Performed at: ??01 - [facility] [address] ??[id number] [employer] Utility Worker: Jc Boyer PhD, Phone: ??[phone] Damon Swanson DO LAB BLOOD ORDERABLES Final R esult [facility] - 01 documented in this encounter Visit Diagnoses Not on filedocumented in this encounter Care Teams Registration Scheduling Specialist Relationship Specialty Start Date End Date Zeke Puente MD [address] [place] [address] PCP - General 07/10/17 06/11/18 Damon Swanson DO [address] [place] [id number] Medical Oncologist/Sales Agent [employer] Hematology and Oncology 10/25/17 documented as of this encounter
--- OUTSIDE RECORDS SUMMARY | 2024-02-26 21:39 | XMS_ITS | Encounter Summary ---
Author Organization [facility] Healthcare Address [address] [place] [id number] Care Team Providers Care Grapple Skidder Operator Name Role Phone Unavailable Primary Care Provider Unavailabl e Encounter Details Date Type Department Care Team (Latest Contact Info) Description 04/26/2012 10:10 AM BUCKLE AND BUTTON MAKER Hospital Encounter [facility] Rene Fowler MD [address] [place] [id number] Malignant neoplasm of breast (female) (HCC) Social History Tobacco Use Types Packs/Day Years Used Date Smoking Tobacco: Never Assessed Comments Unknown Sex and Gender Information Value Date Recorded Sex Assigned at Not on file Legal Sex Female 12:30 PM BUCKLE AND BUTTON MAKER Gender Identity Not on file Sexual Orientation Not on file documented as of this encounter Plan of Treatment Not on file documented as of this encounter Procedures Procedure Name Priority Date/Time Associated Diagnosis Comments DIAGNOSTIC MAMMOGRAM 2D BILATERAL Routine 04/26/2012 10:12 AM BUCKLE AND BUTTON MAKER documented in this encounter Results * Diagnostic Mammogram 2D Bilateral (04/26/2012 10:12 AM BUCKLE AND BUTTON MAKER) Anatomical Region Laterality Modality Breast Bilateral Mammography 04/26/2012 10:1 2 AM BUCKLE AND BUTTON MAKER Impressions 04/26/2012 11:06 AM BUCKLE AND BUTTON MAKER 1. ??Decreased size of right upper outer quadrant hematoma/seroma. 2. ??Probably benign post-treatment appearance of both breasts. ??Short interval follow-up bilateral diagnostic mammography is recommended in 6 months. ASSESSMENT: BI-RADS: 3 PROBABLY BENIGN. Short term interval follow-up is recommended in 6 months. THIS IS AN ELECTRONICALLY VERIFIED REPORT 04/26/2012 11:02 AM: ??Venkat Champion M.D. Venkat Champion M.D. NH:sc 11:02 AM 11:02 AM [EOD] Narrative 04/26/2012 11:06 AM BUCKLE AND BUTTON MAKER EXAMINATION: BILATERAL DIGITAL DIAGNOSTIC MAMMOGRAM HISTORY: 57-year-old woman here for surveillance of both breasts. ??Patient initially had bilateral invasive ductal carcinoma status post bilateral lumpectomies in October 2010 with chemotherapy and radiation. ??Subsequent excision of left upper outer quadrant lumpectomy site on 04/29/2011 demonstrated invasive ductal carcinoma with negative margins. ??Chronic right breast fluid collection status post multiple aspirations. COMPARISON: 05/10/2010, 10/25/2011 FINDINGS: Bilateral digital diagnostic mammography was performed. ??CAD was utilized to evaluate this mammogram. There are scattered fibroglandular densities. The circumscribed fluid collection in the upper outer right breast has decreased in size, currently measuring 7.4 cm, previously 8.3 cm. ??Air-fluid level has resolved. ??Trabecular thickening and skin thickening of the right breast have not significantly changed. ??There is no dominant mass or suspicious calcification in the right breast. Trabecular thickening and skin thickening in the left breast have mildly decreased since the most recent mammogram. ??There is no dominant mass, suspicious calcification or architectural distortion in the left breast. Procedure Note Provider, MD Almita - 07/28/2020 EXAMINATION: BILATERAL DIGITAL DIAGNOSTIC MAMMOGRAM HISTORY: 57-year-old woman here for surveillance of both breasts. Patient initially had bilateral invasive ductal carcinoma status post bilateral lumpectomies in October 2010 with chemotherapy and radiation. Subsequent excision of left upper outer quadrant lumpectomy site on 04/29/2011 demonstrated invasive ductal carcinoma with negative margins. Chronicright breast fluid collection status post multiple aspirations. COMPARISON: 05/10/2010, 10/25/2011 FINDINGS: Bilateral digital diagnostic mammography was performed. CAD was utilized to evaluate this mammogram. There are scattered fibroglandular densities. The circumscribed fluid collection in the upper outer right breast has decreased in size, currently measuring 7.4 cm, previously 8.3 cm.Air-fluid level has resolved. Trabecular thickening and skin thickening of theright breast have not significantly changed. There is no dominant mass or suspicious calcification in the right breast. Trabecular thickening and skin thickening in the left breast have mildly decreased since the most recent mammogram. There is no dominant mass, suspicious calcification or architectural distortion in the left breast. IMPRESSION: 1. Decreased size of right upper outer quadrant hematoma/seroma. 2. Probably benign post-treatment appearance of both breasts. Shortinterval follow-up bilateral diagnostic mammography is recommended in 6 months. ASSESSMENT: BI-RADS: 3 PROBABLY BENIGN. Short term interval follow-up is recommended in 6 months. THIS IS AN ELECTRONICALLY VERIFIED REPORT 04/26/2012 11:02 AM: Venkat Champion M.D. Venkat Champion M.D. NH:serena 11:02 AM 11:02 AM [EOD] Rene Fowler MD IMG MAMMO PROCEDURES Final Result documented in this encounter Visit Diagnoses Diagnosis Malignant neoplasm of breast (female) (HCC) Malignant neoplasm of breast (female), unspecified site documented in this encounter
--- OUTSIDE RECORDS SUMMARY | 2024-02-26 21:39 | XMS_ITS | Encounter Summary ---
Author Organization [facility] Healthcare Address [address] [place] [id number] Care Team Providers Care Agricultural Purchasing Agent Name Role Phone Unavailable Primary Care Provider Unavailabl e Encounter Details Date Type Department Care Team (Latest Contact Info) Description 05/02/2013 8:26 AM LVN LPN Hospital Encounter [facility] OP Damon Swanson, DO [facility] [id number] Malignant neoplasm of breast (female) (HCC); Observation for suspected malignant neoplasm Social History Tobacco Use Types Packs/Day Years Used Date Smoking Tobacco: Never Assessed Comments Unknown Sex and Gender Information Value Date Recorded Sex Assigned at Not on file Legal Sex Female 12:30 PM LVN LPN Gender Identity Not on file Sexual Orientation Not on file documented as of this encounter Plan of Treatment Not on file documented as of this encounter Procedures Procedure Name Priority Date/Time Associated Diagnosis Comments CT CHEST W CONTRAST Routine 05/02/2013 9 :[address] ABDOMEN W CONTRAST Routine 05/02/2013 9:00 AM LVN LPN documented in this encounter Results * CT Chest W Contrast (05/02/2013 9:30 AM LVN LPN) Anatomical Region Laterality Modality Body N/A Computed Tomogra phy 05/02/2013 9:30 AM LVN LPN Impressions 05/02/2013 12:52 PM LVN LPN ?? 1. ??No evidence of metastatic disease in the chest. 2. ??Persistent seroma within the right breast. 3. ??Mild thickening of the distal thoracic esophagus with retained contrast, may relate to reflux. ??If further evaluation is needed, may consider correlating with endoscopy or barium swallow. 4. ??Sequela of old granulomatous disease. 5. ??See separate dictated CT of the abdomen. THIS IS AN ELECTRONICALLY VERIFIED REPORT 05/02/2013 11:48 AM: ??Martinez Miguel M.D. Martinez Miguel M.D. CH:giuliana 10:22 AM 10:52 AM [facility] [EOD] Narrative 05/02/2013 12:52 PM LVN LPN EXAMINATION: ??CT chest with contrast HISTORY: ??Breast cancer. ??Status post chemotherapy and radiation, breast cancer diagnosed June 2010. TECHNIQUE: ??Following intravenous administration of 100 mL Omnipaque 350 intravenous contrast via the right antecubital vein and 48 ounces of oral contrast, postcontrast images were obtained through the chest. COMPARISON: ??02/05/2013. FINDINGS: ??See separate dictated CT the abdomen. ??Skin thickening of the right greater than left breast is again seen. ??A fluid attenuation structure in the lateral aspect of right breast is again seen, not significantly changed and likely related to a seroma. ??No pathologic axillary, supraclavicular, internal mammary, or mediastinal adenopathy. ??There are calcified subcarinal and right hilar lymph nodes related to old granulomatous disease which are unchanged. ?? Heart size is mildly enlarged but unchanged and there is coronary artery calcification. Surgical clips are again noted in the left axilla. ??The thyroid gland is either atrophic or surgically absent. ??Moderate atherosclerotic involvement of the thoracic aortic arch is noted. 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 Mild thickening of the esophageal wall is noted with retained contrast (for example series 2 image 56). No pleural or pericardial effusion. ??Central airways are patent. ??No pneumothorax. ??Linear band-like area of scarring/atelectasis of the left upper lobe is unchanged. ??Periosteophytic atelectasis in the right lower lobe. ??No focal consolidation. ??No suspicious pulmonary nodules are identified. No acute aggressive appearing osseous lesions are identified. Vertebral body hemangiomas are again noted with osteophytes in the lower thoracic spine. Procedure Note Provider, MD Almita - 07/28/2020 EXAMINATION: CT chest with contrast HISTORY: Breast cancer. Status post chemotherapy and radiation, breast cancer diagnosed June 2010. TECHNIQUE: Following intravenous administration of 100 mL Omnipaque 350 intravenous contrast via the right antecubital vein and 48 ounces of oral contrast, postcontrast images were obtained through the chest. COMPARISON: 02/05/2013. FINDINGS: See separate dictated CT the abdomen. Skin thickening of theright greater than left breast is again seen. A fluid attenuation structure inthe lateral aspect of right breast is again seen, not significantly changedand likely related to a seroma. No pathologic axillary, supraclavicular,internal mammary, or mediastinal adenopathy. There are calcified subcarinal andright hilar lymph nodes related to old granulomatous disease which areunchanged. Heart size is mildly enlarged but unchanged and there is coronary artery calcification. Surgical clips are again noted in the left axilla. The thyroid gland is either atrophic or surgically absent. Moderate atheroscleroticinvolvement of the thoracic aortic arch is noted. 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 No pleural or pericardial effusion. Central airways are patent. No pneumothorax. Linear band-like area of scarring/atelectasis of the leftupper lobe is unchanged. Periosteophytic atelectasis in the right lower lobe.No focal consolidation. No suspicious pulmonary nodules are identified. No acute aggressive appearing osseous lesions are identified. Vertebralbody hemangiomas are again noted with osteophytes in the lower thoracicspine. IMPRESSION: 1. No evidence of metastatic disease in the chest. 2. Persistent seroma within the right breast. 3. Mild thickening of the distal thoracic esophagus with retainedcontrast, may relate to reflux. If further evaluation is needed, may consider correlating with endoscopy or barium swallow. 4. Sequela of old granulomatous disease. 5. See separate dictated CT of the abdomen. THIS IS AN ELECTRONICALLY VERIFIED REPORT 05/02/2013 11:48 AM: Martinez Miguel M.D. Martinez Miguel M.D. CH:giuliana 10:22 AM 10:52 AM [facility] [EOD] us Damon Swanson DO IMG CT PROCEDURES Final Resu lt * CT Abdomen W Contrast (05/02/2013 9:00 AM LVN LPN) Anatomical Region Laterality Modality Body N/A Computed Tomogra phy 05/02/2013 9:00 AM LVN LPN Impressions 05/02/2013 12:51 PM LVN LPN ?? 1. ??No evidence of metastatic disease within the abdomen. 2. ??Fat-containing supraumbilical ventral and small bowel containing periumbilical hernias as above without obstruction. 3. ??See separate dictated CT the chest. THIS IS AN ELECTRONICALLY VERIFIED REPORT 05/02/2013 11:48 AM: ??Martinez Miguel M.D. Martinez Miguel M.D. CH:giuliana 10:15 AM 10:45 AM [facility] [EOD] Narrative 05/02/2013 12:51 PM LVN LPN EXAMINATION: ??CT abdomen with contrast HISTORY: ??Breast cancer. ??Status post chemotherapy and radiation. TECHNIQUE: ??Following intravenous administration of 100 mL Omnipaque 350 intravenous contrast via the right antecubital vein and 14 ounces of oral contrast, postcontrast images were obtained through the abdomen. COMPARISON: ??02/05/2013. FINDINGS: ??See separate dictated CT of the chest. No focal hepatic lesions are identified. ??The gallbladder is normal. ?? Granulomatous calcification is seen in the spleen. ??Mild fatty atrophy in the pancreatic head without focal lesion. Both adrenal glands are normal. ??Kidneys enhance symmetrically with no contour deforming lesions. ??Tiny cystic structure in the interpolar region of the right kidney measuring 0.4 cm (series 6 image 54) unchanged, too small to definitively characterize but likely a cyst. An umbilical hernia is again seen which contains an extension of small bowel (series 6 image 98) without evidence of obstruction. ??More superiorly a fat-containing hernia is again seen, with soft tissue density along the right lateral margin of the defect, previously appear to contain a small amount of fluid. ??Uterus is partially imaged. ??The appendix is normal. ??No evidence of bowel obstruction. No pathologic adenopathy within the abdomen. Bone windows demonstrate no acute or aggressive appearing osseous lesions. Moderate atherosclerotic involvement of the abdominal aorta and branch vessels. Procedure Note Provider, MD Almita - 07/28/2020 EXAMINATION: CT abdomen with contrast HISTORY: Breast cancer. Status post chemotherapy and radiation. TECHNIQUE: Following intravenous administration of 100 mL Omnipaque 350 intravenous contrast via the right antecubital vein and 14 ounces of oral contrast, postcontrast images were obtained through the abdomen. COMPARISON: 02/05/2013. FINDINGS: See separate dictated CT of the chest. No focal hepatic lesions are identified. The gallbladder is normal. Granulomatous calcification is seen in the spleen. Mild fatty atrophy inthe pancreatic head without focal lesion. Both adrenal glands are normal. Kidneys enhance symmetrically with nocontour deforming lesions. Tiny cystic structure in the interpolar region of the right kidney measuring 0.4 cm (series 6 image 54) unchanged, too small to definitively characterize but likely a cyst. An umbilical hernia is again seen which contains an extension of smallbowel (series 6 image 98) without evidence of obstruction. More superiorly a fat-containing hernia is again seen, with soft tissue density along theright lateral margin of the defect, previously appear to contain a small amountof fluid. Uterus is partially imaged. The appendix is normal. No evidenceof bowel obstruction. No pathologic adenopathy within the abdomen. Bone windows demonstrate no acute or aggressive appearing osseous lesions. Moderate atherosclerotic involvement of the abdominal aorta and branchvessels. IMPRESSION: 1. No evidence of metastatic disease within the abdomen. 2. Fat-containing supraumbilical ventral and small bowel containing periumbilical hernias as above without obstruction. 3. See separate dictated CT the chest. THIS IS AN ELECTRONICALLY VERIFIED REPORT 05/02/2013 11:48 AM: Martinez Miguel M.D. Martinez Miguel M.D. CH:giuliana 10:15 AM 10:45 AM [facility] [EOD] Damon Swanson DO IMG CT PROCEDURES Final Resu lt documented in this encounter Visit Diagnoses Diagnosis Malignant neoplasm of breast (female) (HCC) Malignant neoplasm of breast (female), unspecified site Observation for suspected malignant neoplasm documented in this encounter
--- OUTSIDE RECORDS SUMMARY | 2024-02-26 21:39 | XMS_ITS | Encounter Summary ---
Author Organization [facility] Healthcare Address [address] [place] [address] Care Team Providers Care Ortho Nurse Name Role Phone Unavailable Primary Care Provider Unavailabl e Encounter Details Date Type Department Care Team (Latest Contact Info) Description 08/30/2016 10:30 PM CDT - 08/31/2016 6:24 PM CDT Hospital Encounter [facility] Quiana Buenrostro Lower abdominal pain; Essential (primary) hypertension; Type 2 diabetes mellitus without complications (CMS/HCC); Hypothyroidism; Obesity; Hyperlipidemia; Low back pain; Bipolar disorder (CMS/HCC); Schizophrenia (CMS/HCC); Body mass index (BMI) of 36.0-36.9 in adult; [facility] 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); Other terminal gauger (current) drug therapy; Personal history of malignant neoplasm of breast Social History Tobacco Use Types Packs/Day Years Used Date Smoking Tobacco: Never Assessed Comments Unknown Sex and Gender Information Value Date Recorded Sex Assigned at Not on file 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 Gender Identity Not on file Sexual Orientation Not on file documented as of this encounter Last Filed Vital Signs Vital Sign Reading Time Taken Comments Blood Pressure 121/74 08/31/2016 3:00 PM CDT Pulse 65 08/31/2016 3:00 PM CDT Temperature 36.5 ??C (97.7 ??F) 08/31/2016 3:00 PM CD T Respiratory Rate - - Oxygen Saturation 95% 08/31/2016 3:00 PM CDT Inhaled Oxygen Concentration - - Weight 89.9 kg (198 lb 3.1 oz) 08/31/2016 3:00 P M CDT Height 157.5 cm (5' 2 ) 08/31/2016 3:00 PM CDT Body Mass Index 36.25 08/31/2016 3:00 PM CDT documented in this encounter Plan of Treatment Not on file documented as of this encounter Procedures Procedure Name Priority Date/Time Associated Diagnosis Comments CBC WITH AUTO DIFFERENTIAL Routine 08/31/2016 6:24 AM CDT TROPONIN I Routine 08/31/2016 6:24 AM CDT HEMOGLOBIN A1C Routine 08/31/2016 6:24 AM CDT BASIC METABOLIC PANEL Routine 08/31/2016 6:24 AM CDT LACTATE Routine 08/30/2016 4:46 PM CDT CBC WITH AUTO DIFFERENTIAL Routine 08/30/2016 4:46 PM CDT LIPASE Routine 08/30/2016 4:46 PM CDT COMPREHENSIVE METABOLIC PANEL Routine 08/30/2016 4:46 PM CDT URINALYSIS, MACRO AND MICRO Routine 08/30/2016 4:[address] ABDOMEN PELVIS W CONTRAST Routine 08/30/2016 12:00 AM CDT documented in this encounter Results * Troponin I (08/31/2016 6:24 AM CDT) [facility] Troponin I < 0.300 0.000 - 0.300 ng/mL 08/31/2016 9:45 AM CDT [facility] HISTORICAL RESULTS Comment: Reference using CHRISTIANE Chemiluminescence ? Negative: Repeat in 4-6 hours as indicated. 08/31/2016 6:24 AM CDT 08/31/2016 7:26 AM CDT us Quiana Kaiden Buenrostro LAB BLOOD ORDERABLES Final Res ult [facility] [employer] HISTORICAL RESULTS * (ABNORMAL) CBC with auto differential (08/31/2016 6:24 AM CDT) WBC 3.5(L) 4.6 - 10.2 x10 3/ul 08/31/2016 8:00 AM CDT Ratio HISTORICAL RESULTS RBC 3.77 3.76 - 4.80 x10 6/ul 08/31/2016 8:00 AM CDT Ratio HISTORICAL RESULTS Hemoglobin 11.5 11.0 - 15.0 g/dl 08/31/2016 8:00 AM CDT Ratio HISTORICAL RESULTS Hct 33.7 33.0 - 43.0 % 08/31/2016 8:00 AM T Ratio HISTORICAL RESULTS MCV 89.4 80.0 - 97.0 fl 08/31/2016 8:00 AM CDT Ratio HISTORICAL RESULTS MCH 30.5 27.0 - 31.2 pg 08/31/2016 8:00 AM CDT Ratio HISTORICAL RESULTS MCHC 34.1 31.8 - 35.4 g/dl 08/31/2016 8:00 AM CDT Ratio HISTORICAL RESULTS RDW 14.2 11.6 - 14.8 % 08/31/2016 8:00 AM T Ratio HISTORICAL RESULTS Plt Count 203 124 - 400 x10 3/ul 08/31/2016 8:00 AM CDT Ratio HISTORICAL RESULTS MPV 10.4 7.4 - 10.4 fl 08/31/2016 8:00 AM CDT Ratio HISTORICAL RESULTS Neut % 50.5 37.0 - 85.0 % 08/31/2016 8:00 AM CDT Ratio HISTORICAL RESULTS Immature Gran % 0.6 0.0 - 3.0 % 08/31/2016 8:00 AM CDT Ratio HISTORICAL RESULTS Lymph % 39.8 5.0 - 45.0 % 08/31/2016 8:00 AM CDT Ratio HISTORICAL RESULTS Iroquois % 7.1 3.0 - 15.0 % Eos % 1.1 0.0 - 7.0 % Baso % 0.9 0.0 - 2.0 % 08/31/2016 8:00 AM T [facility] HISTORICAL RESULTS Absolute Neuts (auto) 1.8 1.7 - 8.7 x10 3/ul Immature Gran # 0.0 0.0 - 0.3 x10 3/ul Absolute Lymphs (auto) 1.4 0.2 - 4.6 x10 3/ul Absolute Monos (auto) 0.3 0.1 - 1.5 x10 3/ul Absolute Eos (auto) 0.0 0.0 - 0.7 x10 3/ul Absolute Basos (auto) 0.0 0.0 - 0.2 x10 3/ul Nucleat RBC Rel Count 0.0 0 - 3 #/100WBC Absolute Nucleated RBC 0.00 x10 3/ul Absolute Neutrophils 1800 200 - 8000 /ul 08/31/2016 6:24 AM CDT 08/31/2016 7:26 AM T Narrative [facility] HISTORICAL RESULTS - 08/31/2016 8:00 AM CDT us Quinaa Buenrostro LAB BLOOD ORDERABLES Final Res ult [facility] HISTORICAL RESULTS * (ABNORMAL) Basic metabolic panel (08/31/2016 6:24 AM [facility]) Sodium 136 135 - 145 mmol/L Potassium 3.8 3.3 - 5.1 mmol/L Comment: SPECIMEN SLIGHTLY HEMOLYZED: Hemolysis interferes with the above test. ?? SPECIMEN SLIGHTLY LIPEMIC Chloride 90(L) 96 - 108 mmol/L Carbon Dioxide 33(H) 22 - 32 mmol/L Anion Gap 13 7 - 16 Glucose 270(H) 70 - 100 mg/dL Comment:Results reviewed BUN 11 8 - 23 mg/dL Creatinine 0.6 0.5 - 1.1 mg/dL Comment: NOTE: Estimated [...] or on dialysis @ Est GFR (Cockcroft-G) 103 ml/MIN 08/31/2016 8:06 AM T [facility] HISTORICAL RESULTS Comment: Estimated GFR(Cockroft-Gault)is used to calculate patient medication dosage Calcium 8.8 8.8 - 10.2 mg/dL 08/31/2016 8:06 AM T [facility] HISTORICAL RESULTS 08/31/2016 6:24 AM CDT 08/31/2016 7:26 AM CDT [employer] Porter LAB BLOOD ORDERABLES Final Res ult Performing Organization Address [facility] de Phone Number [facility] HISTORICAL RESULTS * (ABNORMAL) Hemoglobin A1c (08/31/2016 6:24 AM CDT) Pathologist [facility] Hemoglobin A1c % 10.6(H) 4.8 - 5.9 % 08/31/2016 7:44 AM T [facility] HISTORICAL RESULTS Comment: [place] [employer] recommends that the goal of therapy should be an A1C hemoglobin of <7%. Reevaluate the treatment regimen in patients with an A1C >8%. 08/31/2016 6:24 AM CDT 08/31/2016 7:26 AM CDT [employer] SystemsTesha Rayn [facility] BLOOD ORDERABLES Final Res ult Performing Organization Address [facility] de Phone Number [facility] HISTORICAL RESULTS * Lipase (08/30/2016 4:46 PM CDT) Lipase 14 13 - 60 U/L 08/30/2016 5:44 PM T [facility] HISTORICAL RESULTS 08/30/2016 4:46 PM CDT 08/30/2016 5:01 PM CDT us Ya GONZALEZ LAB BLOOD ORDERABLES Final Result [facility] HISTORICAL RESULTS * Lactate (08/30/2016 4:46 PM CDT) L-Lactate 1.4 mmol/L 08/30/2016 5:28 PM T [facility] HISTORICAL RESULTS Comment:Lactate Reference Ra nge: 0.5 - 2.2 mmol/L 08/30/2016 4:46 PM CDT 08/30/2016 5:01 PM CDT Ya GONZALEZ LAB BLOOD ORDERABLES Final Result Performing Organization Address [facility] de Phone Number [facility] HISTORICAL RESULTS * (ABNORMAL) Comprehensive metabolic panel (08/30/2016 4:46 PM CDT) Pathologist [facility] Sodium 135 135 - 145 mmol/L 08/30/2016 5:44 PM T [facility] HISTORICAL RESULTS Potassium 3.8 3.3 - 5.1 mmol/L Chloride 91(L) 96 - 108 mmol/L Carbon Dioxide 31 22 - 32 mmol/L Anion Gap 13 7 - 16 Glucose 412(H) 70 - 100 mg/dL BUN 14 8 - 23 mg/dL Creatinine 0.9 0.5 - 1.1 mg/dL Comment: NOTE: Estimated GFR (Cockroft-Gault) will NOT be calculated unless patient Height and Weight were entered. Also, Kidney Disease Stage (GFR) and Estimated GFR (Cockroft-Gault) will NOT be calculated if Creatinine result is <0.2. Kidney Disease Stage 82 mL/MIN Comment: NOTE; ??The GFR is an [...] or on dialysis @ Est GFR (Cockcroft-G) 68 ml/MIN Comment: Estimated GFR(Cockroft-Gault)is used to calculate patient medication dosage Calcium 8.8 8.8 - 10.2 mg/dL Total Protein 7.7 6.4 - 8.3 g/dL Albumin 4.4 3.5 - 5.2 g/dL 08/30/2016 5:44 PM [facility] HISTORICAL RESULTS Globulin 3.3 2.3 - 3.5 gm/dL Albumin/Globulin Ratio 1.3 1.1 - 1.8 Total Bilirubin 1.0 0.0 - 1.2 mg/dL 08/30/2016 5:44 PM CDT [facility] HISTORICAL RESULTS AST 36(H) 0 - 32 U/L 08/30/2016 6:08 PM CDT [facility] HISTORICAL RESULTS Comment: SLIGHTLY HEMOLYZED: Hemolysis interferes with the above test. ALT 33 0 - 33 U/L 08/30/2016 5:44 PM CDT [facility] HISTORICAL RESULTS Alkaline Phosphatase 56 35 - 104 U/L 08/30/2016 5:44 PM CDT [facility] HISTORICAL RESULTS 08/30/2016 4:46 PM CDT 08/30/2016 5:01 PM CDT us Ya GONZALEZ LAB BLOOD ORDERABLES Final Result [facility] HISTORICAL RESULTS * (ABNORMAL) CBC with auto differential (08/30/2016 4:46 PM CDT) WBC 3.5(L) 4.6 - 10.2 x10 3/ul 08/30/2016 5:02 PM CDT [facility] HISTORICAL RESULTS RBC 3.45(L) 3.76 - 4.80 x10 6/ul 08/30/2016 5:02 PM T [facility] HISTORICAL RESULTS Hemoglobin 10.8(L) 11.0 - 15.0 g/dl 08/30/2016 5:02 PM T [facility] HISTORICAL RESULTS Hct 30.9(L) 33.0 - 43.0 % 08/30/2016 5:02 PM T [facility] HISTORICAL RESULTS MCV 89.6 80.0 - 97.0 fl 08/30/2016 5:02 PM T [facility] HISTORICAL RESULTS MCH 31.3(H) 27.0 - 31.2 pg 08/30/2016 5:02 PM T [facility] HISTORICAL RESULTS MCHC 35.0 31.8 - 35.4 g/dl 08/30/2016 5:02 PM T [facility] HISTORICAL RESULTS RDW 14.2 11.6 - 14.8 % 08/30/2016 5:02 PM T [facility] HISTORICAL RESULTS Plt Count 201 124 - 400 x10 3/ul MPV 10.2 7.4 - 10.4 fl Neut % 60.1 37.0 - 85.0 % Immature Gran % 0.3 0.0 - 3.0 % Lymph % 30.4 5.0 - 45.0 % Iroquois % 7.7 3.0 - 15.0 % Eos % 0.9 0.0 - 7.0 % Baso % 0.6 0.0 - 2.0 % Absolute Neuts (auto) 2.1 1.7 - 8.7 x10 3/ul Immature Gran # 0.0 0.0 - 0.3 x10 3/ul Absolute Lymphs (auto) 1.1 0.2 - 4.6 x10 3/ul Absolute Monos (auto) 0.3 0.1 - 1.5 x10 3/ul Absolute Eos (auto) 0.0 0.0 - 0.7 x10 3/ul Absolute Basos (auto) 0.0 0.0 - 0.2 x10 3/ul Nucleat RBC Rel Count 0.0 0 - 3 #/100WBC Absolute Nucleated RBC 0.00 x10 3/ul 08/30/2016 5:02 PM CDT [facility] HISTORICAL RESULTS Absolute Neutrophils 2100 200 - 8000 /ul 08/30/2016 4:46 PM CDT 08/30/2016 5:01 PM CDT us Ya GONZALEZ LAB BLOOD ORDERABLES Final Result [facility] HISTORICAL RESULTS * (ABNORMAL) Urinalysis, macro and micro (08/30/2016 4:45 PM CDT) Ur Collection Type CLEAN CATCH Urine Color YELLOW YELLOW Urine Clarity Slightly-Pat udy CLEAR Urine Glucose (UA) >=500(H) NORMAL mg/dL Urine Bilirubin NEGATIVE NEGATIVE mg/dl Urine Ketones NEGATIVE NEGATIVE mg/dL Ur Specific Campbell 1.025 1.005 - 1.025 Urine Blood 0.03(H) NEGATIVE mg/dl Urine pH 6.0 5.0 - 8.0 Urine Protein NEGATIVE NEGATIVE mg/dL Urine Urobilinogen 4(H) NORMAL mg/dL Urine Nitrite NEGATIVE NEGATIVE Ur Leukocyte Esterase NEGATIVE NEGATIVE Bernadette/ul Ur Microscopic Review Indicated or Ordered Urine RBC <1 0 - 2 /HPF 08/30/2016 5:11 PM CDT [facility] HISTORICAL RESULTS Urine WBC 1 0 - 2 /HPF 08/30/2016 5:11 PM CDT [facility] HISTORICAL RESULTS Urine Mucus RARE /LPF 08/30/2016 5:11 PM CDT [facility] HISTORICAL RESULTS Ur Squamous Epith Cells Few /HPF 08/30/2016 5:11 PM CDT [facility] HISTORICAL RESULTS 08/30/2016 4:45 PM CDT 08/30/2016 5:03 PM CDT Narrative [facility] HISTORICAL RESULTS - 08/30/2016 5:11 PM CDT us Ya GONZALEZ LAB URINE ORDERABLES Final Result [facility] HISTORICAL RESULTS * CT Abdomen Pelvis W Contrast (08/30/2016 12:00 AM CDT) Anatomical Region Laterality Modality Body N/A Computed Tomogra phy 08/30/2016 Impressions 08/30/2016 8:38 PM CDT 1. ??Dilatation of the appendix, measuring up to 11 mm, slightly increased in size compared to the prior examination. ??There is also an development of mild periappendiceal inflammatory stranding. ??This may represent early appendicitis. ??Recommend consultation with general surgery for further evaluation and management. 2. ??Postsurgical changes of prior ventral abdominal hernia repair with a fluid collection in the subcutaneous tissues of the anterior abdominal wall just anterior to the hernia repair coils, measuring approximate 16.0 x 9.8 x 7.3 cm. ??The overall appearance is not significantly changed. Above findings discussed with Dr. Donato by Dr. Tenorio at 8:30 p.m. on 08/30/16. Automated exposure control was used as a dose optimization technique for this examination. THIS IS AN ELECTRONICALLY VERIFIED REPORT 08/30/2016 8:35 PM: ??Ben Tenorio M.D. ?? Ben Tenorio M.D. CN:brian 08:35 PM 08:35 PM [facility] [EOD] Narrative 08/30/2016 8:38 PM CDT EXAMINATION: CT abdomen/pelvis with intravenous contrast HISTORY: Lower abdominal pain, onset 1 week ago COMPARISON: CT abdomen/pelvis 08/01/2016 TECHNIQUE: Computed tomographic images of the abdomen and pelvis were obtained after the administration of 100 mL of Omnipaque 350 intravenous contrast via right antecubital fossa IV FINDINGS: Limited images of the lung bases do not demonstrate any focal consolidation or pleural effusion. ??There is a moderate pericardial effusion, not significantly changed. There are punctate calcifications in the spleen, consistent with prior granulomatous disease. ??The liver, gallbladder, pancreas, kidneys, and adrenal glands are normal. ??The bladder is normal. ??The uterus and bilateral adnexa are normal. There are postsurgical change of prior ventral abdominal hernia repair. ??There is a fluid collection in the subcutaneous tissues of the anterior abdominal wall just anterior to the hernia coils, measuring approximately 16.0 cm x 9.8 cm x 7.3 cm . The overall appearance is not significantly changed compared to the prior examination. There are small foci of subcutaneous emphysema in the anterior abdominal wall. The appendix is dilated measuring up to 11 mm. ??This is slightly increased in size compared to the prior examination. ??There has also been interval development of mild periappendiceal inflammatory stranding. ?? The stomach, small bowel, and large bowel are normal in caliber with no evidence of obstruction. There is no abdominal or pelvic lymphadenopathy or free fluid. ??There is no free intraperitoneal air. ??The abdominal aorta contains mild calcified and noncalcified atherosclerotic plaque but is normal in caliber. Bone windows do not demonstrate any abnormal osseous lytic or blastic lesions. There is mild multilevel degenerative disc disease in the thoracolumbar spine. Procedure Note Provider, MD Almita - 07/28/2020 EXAMINATION: CT abdomen/pelvis with intravenous contrast HISTORY: Lower abdominal pain, onset 1 week ago COMPARISON: CT abdomen/pelvis 08/01/2016 TECHNIQUE: Computed tomographic images of the abdomen and pelvis wereobtained after the administration of 100 mL of Omnipaque 350 intravenous contrastvia right antecubital fossa IV FINDINGS: Limited images of the lung bases do not demonstrate any focalconsolidation or pleural effusion. There is a moderate pericardial effusion, notsignificantly changed. There are punctate calcifications in the spleen, consistent with prior granulomatous disease. The liver, gallbladder, pancreas, kidneys, andadrenal glands are normal. The bladder is normal. The uterus and bilateraladnexa are normal. There are postsurgical change of prior ventral abdominal hernia repair.There is a fluid collection in the subcutaneous tissues of the anteriorabdominal wall just anterior to the hernia coils, measuring approximately 16.0 cm x9.8 cm x 7.3 cm . The overall appearance is not significantly changed comparedto the prior examination. There are small foci of subcutaneous emphysema inthe anterior abdominal wall. The appendix is dilated measuring up to 11 mm. This is slightly increasedin size compared to the prior examination. There has also been interval development of mild periappendiceal inflammatory stranding. The stomach, small bowel, and large bowel are normal in caliber with no evidence of obstruction. There is no abdominal or pelvic lymphadenopathyor free fluid. There is no free intraperitoneal air. The abdominal aorta contains mild calcified and noncalcified atherosclerotic plaque but isnormal in caliber. Bone windows do not demonstrate any abnormal osseous lytic or blasticlesions. There is mild multilevel degenerative disc disease in the thoracolumbar spine. IMPRESSION: 1. Dilatation of the appendix, measuring up to 11 mm, slightly increasedin size compared to the prior examination. There is also an development ofmild periappendiceal inflammatory stranding. This may represent early appendicitis. Recommend consultation with general surgery for further evaluation and management. 2. Postsurgical changes of prior ventral abdominal hernia repair with afluid collection in the subcutaneous tissues of the anterior abdominal wall just anterior to the hernia repair coils, measuring approximate 16.0 x 9.8 x7.3 cm. The overall appearance is not significantly changed. Above findings discussed with Dr. Donato by Dr. Tenorio at 8:30 p.m. on08/30/16. Automated exposure control was used as a dose optimization technique forthis examination. THIS IS AN ELECTRONICALLY VERIFIED REPORT 08/30/2016 8:35 PM: Ben Tenorio M.D. Ben Tenorio M.D. CN:cn 08:35 PM 08:35 PM [facility] [EOD] Rizwana Montiel IMG CT PROCEDURES Final R esult documented in this encounter Visit Diagnoses Diagnosis Lower abdominal pain Abdominal pain, other specified site Essential (primary) hypertension Unspecified essential hypertension Type 2 diabetes mellitus without complications (CMS/HCC) (HCC) Hypothyroidism Unspecified hypothyroidism Obesity Obesity, unspecified Hyperlipidemia Other and unspecified hyperlipidemia Low back pain Lumbago Bipolar disorder (HCC) Bipolar disorder, unspecified Schizophrenia (HCC) Unspecified schizophrenia, unspecified condition Body mass index (BMI) of 36.0-36.9 in adult [facility] 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) (HCC) Other terminal gauger (current) drug therapy Personal history of malignant neoplasm of breast documented in this encounter
--- OUTSIDE RECORDS SUMMARY | 2024-02-26 21:39 | XMS_ITS | Encounter Summary ---
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 Gender Identity Not on file Sexual Orientation Not on file documented as of this encounter Plan of Treatment Not on file documented as of this encounter Visit Diagnoses Diagnosis Malignant neoplasm of left breast in female, estrogen receptor negative, unspecified site of breast (HCC) documented in this encounter Orders Appointment Requests Count Last Ordered Date Fi rst Ordered Date ONCBCN LAB APPOINTMENT 1 05/15/2018 documented in this encounter Care Teams Wire Taper Relationship Specialty Start Date End Date Zeke Puente MD [address] [place] [address] PCP - General 07/10/17 06/11/18 Damon Swanson DO [address] [place] [id number] Medical Oncologist/First Responder Hematology and Oncology 10/25/17 documented as of this encounter
--- OUTSIDE RECORDS SUMMARY | 2024-02-26 21:39 | XMS_ITS | Encounter Summary ---
Author Organization [facility] Healthcare Address [address] [place] [address] Care Team Providers Care Grant Manager Name Role Phone Unavailable Primary Care Provider Unavailabl e Encounter Details Date Type Department Care Team (Latest Contact Info) Description 01/23/2014 12:40 PM CARPENTER RAILCAR Hospital Encounter [facility] OP Damon Swanson, DO [address] [id number] Observation for suspected malignant neoplasm; Malignant neoplasm of breast (female) (HCC) Social History Tobacco Use Types Packs/Day Years Used Date Smoking Tobacco: Never Assessed Comments Unknown Sex and Gender Information Value Date Recorded Sex Assigned at Not on file Legal Sex Female 12:30 PM CARPENTER RAILCAR Gender Identity Not on file Sexual Orientation Not on file documented as of this encounter Plan of Treatment Not on file documented as of this encounter Procedures Procedure Name Priority Date/Time Associated Diagnosis Comments CT CHEST W CONTRAST Routine 01/23/2014 2 :[address] ABDOMEN W CONTRAST Routine 01/23/2014 1:30 PM CARPENTER RAILCAR documented in this encounter Results * CT Chest W Contrast (01/23/2014 2:00 PM CARPENTER RAILCAR) Anatomical Region Laterality Modality Body N/A Computed Tomogra phy 01/23/2014 2:00 PM CARPENTER RAILCAR Impressions 01/24/2014 1:26 AM CARPENTER RAILCAR No evidence of metastatic disease in the chest abdomen or pelvis. ??Interval postsurgical changes to the anterior abdominal wall with a postoperative seroma now present. ??No other change from prior study. THIS IS AN ELECTRONICALLY VERIFIED REPORT 01/24/2014 1:23 AM: ??Luisito Elkins M.D. Luisito Elkins M.D. RW:ameena 01:23 AM 01:23 AM [facility] [EOD] Narrative 01/24/2014 1:26 AM CARPENTER RAILCAR EXAMINATION: CT CHEST ABDOMEN AWITH CONTRAST HISTORY: ??Breast cancer restaging COMPARISON: ??08/01/2013 TECHNIQUE: Contrast: ??100 mL Omnipaque 350 right antecubital fossa IV without complication. ??Coronal and sagittal images were reviewed. FINDINGS: ??Stable right breast seroma measuring about 6 cm in diameter.The heart is normal size. ??There is no pericardial effusion. ??Aorta is unremarkable. ??No lymphadenopathy. Calcified pulmonary granulomas. ??Calcified mediastinal lymph nodes. No acute infiltrate. ??Scarring in the left upper lobe. ??No pleural effusion. ?? No pneumothorax. No new pulmonary nodules or masses. Abdomen: Interval postsurgical changes to the midline anterior abdominal wall. ??There is a 9 cm round fluid collection in the subcutaneous fat new from prior study likely a postoperative seroma. The liver is unremarkable. The gallbladder is normal. The spleen and pancreas are unremarkable. ?? The adrenal glands are normal size. ??Kidneys are normal size. ??No hydronephrosis. ??No evidence of urolithiasis. ?? The stomach and included small bowel are unremarkable. ??The colon is normal. No evidence of pneumoperitoneum. ??There is no ascites. The aorta is normal caliber with mild atherosclerotic disease. There is mild multi-level degenerative change of the spine. Procedure Note Provider, MD Almita - 07/28/2020 EXAMINATION: CT CHEST ABDOMEN AWITH CONTRAST HISTORY: Breast cancer restaging COMPARISON: 08/01/2013 TECHNIQUE: Contrast: 100 mL Omnipaque 350 right antecubital fossa IVwithout complication. Coronal and sagittal images were reviewed. FINDINGS: Stable right breast seroma measuring about 6 cm in diameter.The heart is normal size. There is no pericardial effusion. Aorta is unremarkable. No lymphadenopathy. Calcified pulmonary granulomas.Calcified mediastinal lymph nodes. No acute infiltrate. Scarring in the left upper lobe. No pleuraleffusion. No pneumothorax. No new pulmonary nodules or masses. Abdomen: Interval postsurgical changes to the midline anterior abdominal wall.There is a 9 cm round fluid collection in the subcutaneous fat new from priorstudy likely a postoperative seroma. The liver is unremarkable. The gallbladder is normal. The spleen and pancreas are unremarkable. The adrenal glands are normal size. Kidneys are normal size. No hydronephrosis. No evidence of urolithiasis. The stomach and included small bowel are unremarkable. The colon isnormal. No evidence of pneumoperitoneum. There is no ascites. The aorta is normal caliber with mild atherosclerotic disease. There is mild multi-level degenerative change of the spine.IMPRESSION: No evidence of metastatic disease in the chest abdomen or pelvis. Interval postsurgical changes to the anterior abdominal wall with a postoperative seroma now present. No other change from prior study. THIS IS AN ELECTRONICALLY VERIFIED REPORT 01/24/2014 1:23 AM: Luisito Elkins M.D. Luisito Elkins M.D. RW:ameena 01:23 AM 01:23 AM [facility] [EOD] us Damon Swanson DO IMG CT PROCEDURES Final Resu lt * CT Abdomen W Contrast (01/23/2014 1:30 PM CARPENTER RAILCAR) Anatomical Region Laterality Modality Body N/A Computed Tomogra phy 01/23/2014 1:30 PM [employer]PENTER [employer]IL[employer] Impressions 01/24/2014 1:27 AM [employer]P[facility] [employer] No evidence of metastatic disease in the chest abdomen or pelvis. ??Interval postsurgical changes to the anterior abdominal wall with a postoperative seroma now present. ??No other change from prior study. THIS IS AN ELECTRONICALLY VERIFIED REPORT 01/24/2014 1:23 AM: ??Luisito Elkins M.D. Luisito Elkins M.D. RW:ameena 01:23 AM 01:23 AM [facility] [EOD] Narrative 01/24/2014 1:27 AM [employer]PENTER [employer]IL[employer] EXAMINATION: CT CHEST ABDOMEN AWITH CONTRAST HISTORY: ??Breast cancer restaging COMPARISON: ??08/01/2013 TECHNIQUE: Contrast: ??100 mL Omnipaque 350 right antecubital fossa IV without complication. ??Coronal and sagittal images were reviewed. FINDINGS: ??Stable right breast seroma measuring about 6 cm in diameter.The heart is normal size. ??There is no pericardial effusion. ??Aorta is unremarkable. ??No lymphadenopathy. Calcified pulmonary granulomas. ??Calcified mediastinal lymph nodes. No acute infiltrate. ??Scarring in the left upper lobe. ??No pleural effusion. ?? No pneumothorax. No new pulmonary nodules or masses. Abdomen: Interval postsurgical changes to the midline anterior abdominal wall. ??There is a 9 cm round fluid collection in the subcutaneous fat new from prior study likely a postoperative seroma. The liver is unremarkable. The gallbladder is normal. The spleen and pancreas are unremarkable. ?? The adrenal glands are normal size. ??Kidneys are normal size. ??No hydronephrosis. ??No evidence of urolithiasis. ?? The stomach and included small bowel are unremarkable. ??The colon is normal. No evidence of pneumoperitoneum. ??There is no ascites. The aorta is normal caliber with mild atherosclerotic disease. There is mild multi-level degenerative change of the spine. Procedure Note Provider, MD Almita - 07/28/2020 EXAMINATION: CT CHEST ABDOMEN AWITH CONTRAST HISTORY: Breast cancer restaging COMPARISON: 08/01/2013 TECHNIQUE: Contrast: 100 mL Omnipaque 350 right antecubital fossa IVwithout complication. Coronal and sagittal images were reviewed. FINDINGS: Stable right breast seroma measuring about 6 cm in diameter.The heart is normal size. There is no pericardial effusion. Aorta is unremarkable. No lymphadenopathy. Calcified pulmonary granulomas.Calcified mediastinal lymph nodes. No acute infiltrate. Scarring in the left upper lobe. No pleuraleffusion. No pneumothorax. No new pulmonary nodules or masses. Abdomen: Interval postsurgical changes to the midline anterior abdominal wall.There is a 9 cm round fluid collection in the subcutaneous fat new from priorstudy likely a postoperative seroma. The liver is unremarkable. The gallbladder is normal. The spleen and pancreas are unremarkable. The adrenal glands are normal size. Kidneys are normal size. No hydronephrosis. No evidence of urolithiasis. The stomach and included small bowel are unremarkable. The colon isnormal. No evidence of pneumoperitoneum. There is no ascites. The aorta is normal caliber with mild atherosclerotic disease. There is mild multi-level degenerative change of the spine.IMPRESSION: No evidence of metastatic disease in the chest abdomen or pelvis. Interval postsurgical changes to the anterior abdominal wall with a postoperative seroma now present. No other change from prior study. THIS IS AN ELECTRONICALLY VERIFIED REPORT 01/24/2014 1:23 AM: Luisito Elkins M.D. Luisito Elkins M.D. RW:ameena 01:23 AM 01:23 AM [facility] [EOD] Damon Swanson DO IMG CT PROCEDURES Final Resu lt documented in this encounter Visit Diagnoses Diagnosis Observation for suspected malignant neoplasm Malignant neoplasm of breast (female) (HCC) Malignant neoplasm of breast (female), unspecified site documented in this encounter
--- OUTSIDE RECORDS SUMMARY | 2024-02-26 21:39 | XMS_ITS | Encounter Summary ---
Author Organization [facility] Healthcare Address [address] [place] [address] Care Team Providers Care Manager Test Name Role Phone Unavailable Primary Care Provider Unavailabl e Encounter Details Date Type Department Care Team (Latest Contact Info) Description 02/05/2013 9:02 AM PLUMBER ASSISTANT Hospital Encounter [facility] OP Damon Swanson, DO [facility] [id number] Observation for suspected malignant neoplasm; Malignant neoplasm of breast (female) (HCC) Social History Tobacco Use Types Packs/Day Years Used Date Smoking Tobacco: Never Assessed Comments Unknown Sex and Gender Information Value Date Recorded Sex Assigned at Not on file Legal Sex Female 12:30 PM PLUMBER ASSISTANT Gender Identity Not on file Sexual Orientation Not on file documented as of this encounter Plan of Treatment Not on file documented as of this encounter Procedures Procedure Name Priority Date/Time Associated Diagnosis Comments CT ABDOMEN W CONTRAST Routine 02/05/2013 10:[address] CHEST W CONTRAST Routine 02/05/2013 1 0:02 AM PLUMBER ASSISTANT documented in this encounter Results * CT Abdomen W Contrast (02/05/2013 10:02 AM PLUMBER ASSISTANT) Anatomical Region Laterality Modality Body N/A Computed Tomogra phy 02/05/2013 10:0 2 AM PLUMBER ASSISTANT Impressions 02/05/2013 12:14 PM PLUMBER ASSISTANT ?? 1. ??No evidence of metastatic disease within the abdomen. 2. ??See separately dictated CT the chest. 3. ??Fat and fluid containing supraumbilical and small bowel containing umbilical hernia as detailed above, with mild wall thickening of the small bowel extending into the hernia. ??No findings to suggest obstruction on the included images. THIS IS AN ELECTRONICALLY VERIFIED REPORT 02/05/2013 12:10 PM: ??Martinez Miguel M.D. Martinez Miguel M.D. CH:giuliana 10:52 AM 10:57 AM [facility] [EOD] Narrative 02/05/2013 12:14 PM PLUMBER ASSISTANT EXAMINATION: ??CT abdomen with contrast HISTORY: ??Breast cancer. ??Bilateral breast cancer 2010 status post chemotherapy and radiation. TECHNIQUE: ??Following the intravenous administration of 100 mL Omnipaque 350 intravenous contrast and 48 ounces of oral contrast, postcontrast images were obtained through the abdomen and pelvis. COMPARISON: ??Correlation is made with a CT of the chest without contrast 10/26/2010 and pelvic and transvaginal ultrasound 11/28/2012. FINDINGS: ??See separately dictated CT of the chest. Abdomen with contrast: ??Small hiatal hernia is present. ??No focal hepatic lesions. ??Spleen and pancreas appear normal. ??Both adrenal glands are normal. ?? Kidneys enhance symmetrically with no contour deforming lesions, renal calculi, or hydronephrosis. There is a supraumbilical and periumbilical hernia. ??The supraumbilical hernia neck measures 1.6 cm and contains fluid and inflammation involving the omental and mesenteric fat. ??The umbilical hernia contains a knuckle of bowel, appears to be small bowel with mild thickening of the small bowel loop measuring 1 cm. No convincing evidence of obstruction at this level. The uterus is partially imaged. ??The appendix is normal. ??No convincing evidence of a bowel obstruction. ??No enlarged abdominal lymph nodes. No acute aggressive appearing osseous lesions are identified. ??Anterior osteophytes are present in the lower thoracic spine. Procedure Note Provider, MD Almita - 07/28/2020 EXAMINATION: CT abdomen with contrast HISTORY: Breast cancer. Bilateral breast cancer 2010 status post chemotherapy and radiation. TECHNIQUE: Following the intravenous administration of 100 mL [id number] intravenous contrast and 48 ounces of oral contrast, postcontrast imageswere obtained through the abdomen and pelvis. COMPARISON: Correlation is made with a CT of the chest without contrast 10/26/2010 and pelvic and transvaginal ultrasound 11/28/2012. FINDINGS: See separately dictated CT of the chest. Abdomen with contrast: Small hiatal hernia is present. No focal hepatic lesions. Spleen and pancreas appear normal. Both adrenal glands arenormal. Kidneys enhance symmetrically with no contour deforming lesions, renal calculi, or hydronephrosis. There is a supraumbilical and periumbilical hernia. The supraumbilicalhernia neck measures 1.6 cm and contains fluid and inflammation involving theomental and mesenteric fat. The umbilical hernia contains a knuckle of bowel,appears to be small bowel with mild thickening of the small bowel loop measuring 1cm. No convincing evidence of obstruction at this level. The uterus is partially imaged. The appendix is normal. No convincing evidence of a bowel obstruction. No enlarged abdominal lymph nodes. No acute aggressive appearing osseous lesions are identified. Anterior osteophytes are present in the lower thoracic spine. IMPRESSION: 1. No evidence of metastatic disease within the abdomen. 2. See separately dictated CT the chest. 3. Fat and fluid containing supraumbilical and small bowel containing umbilical hernia as detailed above, with mild wall thickening of the small bowel extending into the hernia. No findings to suggest obstruction onthe included images. THIS IS AN ELECTRONICALLY VERIFIED REPORT 02/05/2013 12:10 PM: Martinez Miguel M.D. Martinez Miguel M.D. CH:giuliana 10:52 AM 10:57 AM [facility] [EOD] us Damon Swanson DO IMG CT PROCEDURES Final Resu lt * CT Chest W Contrast (02/05/2013 10:02 AM PLUMBER ASSISTANT) Anatomical Region Laterality Modality Body N/A Computed Tomogra phy 02/05/2013 10:0 2 AM PLUMBER ASSISTANT Impressions 02/05/2013 12:14 PM PLUMBER ASSISTANT ?? 1. ??No evidence of metastatic disease within the chest. 2. ??See separately dictated CT of the abdomen. 3. ??Right breast seroma as detailed above. 4. ??Sequela of old granulomatous disease as noted above. THIS IS AN ELECTRONICALLY VERIFIED REPORT 02/05/2013 12:11 PM: ??Martinez Miguel M.D. Martinez Miguel M.D. CH:giuliana 11:08 AM 11:14 AM [facility] [EOD] Narrative 02/05/2013 12:14 PM PLUMBER ASSISTANT EXAMINATION: ??CT chest with contrast HISTORY: ??Breast cancer. Bilateral breast cancer status post chemotherapy and radiation. TECHNIQUE: ??Following intravenous administration of 100 mL Omnipaque 350 intravenous contrast via the right antecubital vein and 48 ounces of oral contrast, postcontrast images were obtained through the abdomen and pelvis. COMPARISON: ??10/26/2010. FINDINGS: ??Previous left upper outer quadrant mass of the left breast has resolved, now with areas of linear parenchymal opacity in the left breast. ?? Within the lateral aspect of the right breast there is a fluid collection measuring 4.7 x 6.3 cm characteristic of a postoperative seroma. ??No pathologically enlarged axillary lymph nodes. ??Surgical clips are seen in the left axilla. ??No enlarged internal mammary, supraclavicular, mediastinal, or hilar lymph nodes. ??Sequela of granulomatous disease is seen with calcified right paratracheal and subcarinal adenopathy. No incidental filling defects within the central pulmonary arteries. ??Heart is mildly enlarged but unchanged. ??Small sliding hiatal hernia is noted. Scarring in the left apex is again seen. ??No suspicious pulmonary nodules are identified. ??No pleural effusion is seen. See separately dictated CT of the abdomen. Bone windows demonstrate no acute or aggressive appearing osseous lesions. ?? Extensive anterior osteophytosis in the thoracic spine. ??A T12 angioma is noted. Procedure Note Provider, MD Almita - 07/28/2020 EXAMINATION: CT chest with contrast HISTORY: Breast cancer. Bilateral breast cancer status post chemotherapyand radiation. TECHNIQUE: Following intravenous administration of 100 mL Omnipaque 350 intravenous contrast via the right antecubital vein and 48 ounces of oral contrast, postcontrast images were obtained through the abdomen andpelvis. COMPARISON: 10/26/2010. FINDINGS: Previous left upper outer quadrant mass of the left breast has resolved, now with areas of linear parenchymal opacity in the left breast. Within the lateral aspect of the right breast there is a fluid collection measuring 4.7 x 6.3 cm characteristic of a postoperative seroma. No pathologically enlarged axillary lymph nodes. Surgical clips are seen inthe left axilla. No enlarged internal mammary, supraclavicular, mediastinal,or hilar lymph nodes. Sequela of granulomatous disease is seen withcalcified right paratracheal and subcarinal adenopathy. No incidental filling defects within the central pulmonary arteries.Heart is mildly enlarged but unchanged. Small sliding hiatal hernia is noted. Scarring in the left apex is again seen. No suspicious pulmonary nodulesare identified. No pleural effusion is seen. See separately dictated CT of the abdomen. Bone windows demonstrate no acute or aggressive appearing osseous lesions. Extensive anterior osteophytosis in the thoracic spine. A T12 angioma is noted. IMPRESSION: 1. No evidence of metastatic disease within the chest. 2. See separately dictated CT of the abdomen. 3. Right breast seroma as detailed above. 4. Sequela of old granulomatous disease as noted above. THIS IS AN ELECTRONICALLY VERIFIED REPORT 02/05/2013 12:11 PM: Martinez Miguel M.D. Martinez Miguel M.D. CH:giuliana 11:08 AM 11:14 AM [facility] [EOD] Damon Swanson DO IMG CT PROCEDURES Final Resu lt documented in this encounter Visit Diagnoses Diagnosis Observation for suspected malignant neoplasm Malignant neoplasm of breast (female) (HCC) Malignant neoplasm of breast (female), unspecified site documented in this encounter
--- OUTSIDE RECORDS SUMMARY | 2024-02-26 21:39 | XMS_ITS | Encounter Summary ---
Author Organization [facility] Healthcare Address [address] [place] [address] Care Team Providers Care Corporate Director Of Human Resources Name Role Phone Unavailable Primary Care Provider Unavailabl e Encounter Details Date Type Department Care Team (Latest Contact Info) Description 08/22/2013 11:30 AM CDT - 08/23/2013 12:05 PM CDT Hospital Encounter [facility] Crow Payne MD [address] [place] [id number] Incisional hernia; Morbid obesity (HCC); Essential hypertension; Hypothyroidism; Pure hypercholesterolemi a; Type 2 or unspecified type diabetes mellitus; Other depressive disorder; Body mass index 35.0-35.9, adult Social History Tobacco Use Types Packs/Day Years Used Date Smoking Tobacco: Never Assessed Comments Unknown Sex and Gender Information Value Date Recorded Sex Assigned at Not on file 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 Gender Identity Not on file Sexual Orientation Not on file documented as of this encounter Last Filed Vital Signs Vital Sign Reading Time Taken Comments Blood Pressure 137/60 08/22/2013 1:28 PM CDT Pulse 63 08/22/2013 1:28 PM CDT Temperature 36.7 ??C (98 ??F) 08/22/2013 1:28 PM CDT Respiratory Rate - - Oxygen Saturation 98% 08/22/2013 1:28 PM CDT Inhaled Oxygen Concentration - - Weight 90.3 kg (199 lb) 08/22/2013 1:28 PM CDT Height 157.5 cm (5' 2 ) 08/22/2013 1:28 PM CDT Body Mass Index 36.4 08/22/2013 1:28 PM CDT documented in this encounter Plan of Treatment Not on file documented as of this encounter Procedures Procedure Name Priority Date/Time Associated Diagnosis Comments OXYGEN SATURATION, ARTERIAL Routine 08/23/2013 7:38 AM CDT documented in this encounter Results * Oxygen saturation, arterial (08/23/2013 7:38 AM CDT) Specimen Type Oximeter 08/23/2013 8:16 AM CDT [employer] HISTORICAL RESULTS Puncture Site FINGER 08/23/2013 8:16 AM T [employer] HISTORICAL RESULTS O2 Sat Pulse Oximetry 97.0 >=90.0 % 08/23/2013 8:16 AM CDT [employer] HISTORICAL RESULTS FiO2 21.0 % 08/23/2013 8:16 AM T [employer] HISTORICAL RESULTS [employer] 08/23/2013 8:16 AM CDT [employer] HISTORICAL RESULTS 08/23/2013 7:38 AM CDT 08/23/2013 7:38 AM CDT us Crow Payne MD LAB BLOOD ORDERABLES Final Result [employer] HISTORICAL RESULTS documented in this encounter Visit Diagnoses Diagnosis Incisional hernia Incisional hernia without mention of obstruction or gangrene Morbid obesity (HCC) Morbid obesity Essential hypertension Unspecified essential hypertension Hypothyroidism Unspecified hypothyroidism Pure hypercholesterolemia Type 2 or unspecified type diabetes mellitus Other depressive disorder Body mass index 35.0-35.9, adult Body Mass Index 35.0-35.9, adult documented in this encounter
--- OUTSIDE RECORDS SUMMARY | 2024-02-26 21:39 | XMS_ITS | Encounter Summary ---
Author Organization [facility] Address [address] [place] [address] Phone Care Team Providers Care Section Leader Name Role Phone Zeke Puente MD Primary Care Provider [phone] Annamaria Mosqueda DO Unavailable [phone] Reason for Visit * Reason Comments Follow-up Encounter Details Date Type Department Care Team (Late st Contact Info) Description 05/15/2018 9:15 AM COPYING MACHINE MECHANIC Office Visit [facility] Oncology [address] [place] [phone] Annamaria Mosqueda, DO [address] [address] Malignant neoplasm of upper-outer quadrant of both [...] on file Legal Sex Female 12:30 PM COPYING MACHINE MECHANIC Gender Identity Not on file Sexual Orientation Not on file documented as of this encounter Last Filed Vital Signs Vital Sign Reading Time Taken Comments Blood Pressure 179/83 05/15/2018 9:44 AM COPYING MACHINE MECHANIC Pulse 89 05/15/2018 9:44 AM COPYING MACHINE MECHANIC Temperature 36.4 ??C (97.5 ??F) 05/15/2018 9:44 AM CS T Respiratory Rate 24 05/15/2018 9:44 AM COPYING MACHINE MECHANIC Oxygen Saturation 99% 05/15/2018 9:44 AM COPYING MACHINE MECHANIC Inhaled Oxygen Concentration - - Weight 93.4 kg (206 lb) 05/15/2018 9:44 AM COPYING MACHINE MECHANIC Height 154.9 cm (5' 1 ) 05/15/2018 9:44 AM COPYING MACHINE MECHANIC Body Mass Index 38.92 05/15/2018 9:44 AM COPYING MACHINE MECHANIC documented in this encounter Ordered Prescriptions Prescription Sig Dispense Quantity Refills Last Filled Start Date End Date gabapentin (NEURONTIN) 100 mg capsule Take 1 capsule (100 mg total) by mouth 3 (three) times a day. 90 capsule 1 05/15/2018 9 furosemide (LASIX) 20 mg tablet Take 1 tablet (20 mg total) by mouth daily. 30 tablet 05/15/2018 9 rOPINIRole (REQUIP) 2 mg tablet Take 1 tablet (2 mg total) by mouth nightly. 30 tablet 1 05/15/2018 0 documented in this encounter Progress Notes * Annamaria Mosqueda, DO - 05/15/2018 9:15 AM CST Patient ID: Iris Pascual is a 63 y.o. female. Primary Care Provider: Zeke Puente MD Assessment/Plan 1. Bilateral breast cancers. Clinically, I do not find any evidence of recurrent disease. She remains on active surveillance. 2. Dementia. On Aricept 5 mg daily. 3. Chronic seroma of the right breast. She will continue with conservative measures. 4. Diffuse arthralgias due to underlying advanced arthritis. She will continue with [id number] medications. 5. 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 Etiology is probably due to underlying diabetes that is not controlled well since her glucose todayis 440. I will start her on gabapentin 100 mg t.i.d.. In addition, she is having myalgias probably due to the neuropathy and I will also start on Requip 2 mg at bedtime. 6. Increasing lower leg edema. I will start on low-dose furosemide and re- evaluate her in 1 month. This will help with her high blood pressure as well. Patient Active Problem List Diagnosis ??? 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 Arm; What is your ordering location? [facility]c/Hem/BMT; Where will this patient receive treatment? [facility]; Future - CBC with auto differential; Future - Clinic Appointment Request Follow up; ANNAMARIA MOSQUEDA MD; Clinic Appointment Location: [facility] IM ONC [facility]; Future - Comprehensive metabolic panel; Future Malignant neoplasm of left breast in female, estrogen receptor negative, unspecified site of breast(CMS/HCC) - Clinic Appointment Request Follow up; ANNAMARIA MOSQUEDA MD - Lab Draw Appt Request Arm Draw or Central Line Draw? Arm; What is your ordering location? IM Onc/Hem/BMT; Where will this patient receive treatment? [facility]; Future - CBC with auto differential; Future - Clinic Appointment Request Follow up; ANNAMARIA MOSQUEDA MD; Clinic Appointment Location: [facility] IM ONC [facility]; Future - Comprehensive metabolic panel; Future Other orders - rOPINIRole (REQUIP) 2 mg tablet; Take 1 tablet (2 mg total) by mouth nightly. - furosemide (LASIX) 20 mg tablet; Take 1 tablet (20 mg total) by mouth daily. - gabapentin (NEURONTIN) 100 mg capsule; Take 1 capsule (100 mg total) by mouth 3 (three) times a day. Subjective Interval History: 1. Stage IV inflammatory [...] feet. She did not tolerate Neurontin well. -- today, c/o increasing parasthesia of feet left> right; went to ER - US of legs; muscle cramps / sharp intermittent pain; 9. Progressive dementia. She has been on [...] Exam: Vital Signs for this encounter: BSA: 2 meters squared BP (!) 179/83 (BP Location: Right arm) Pulse 89 Temp 36.4 ??C (97.5 ??F) (Oral) Resp 24 Ht 154.9 cm (5' 1 ) Wt 93.4 kg (206 lb) SpO2 99% BMI 38.92 kg/m?? Physical Exam Constitutional: She is oriented [...] Her behavior is normal. Performance Status: Symptomatic; in bed <50% of the day Results: WBC Date Value Ref Range Status 05/15/2018 4.1 3.4 - 10.8 x10E3/uL Final Hgb Date Value Ref Range Status 05/15/2018 11.2 11.1 - 15.9 g/dL Final Hct Date Value Ref Range Status 05/15/2018 33.4 (L) 34.0 - 46.6 % Final Platelets Date Value Ref Range Status 05/15/2018 223 150 - 379 x10E3/uL Final Creatinine, Serum Date Value Ref Range Status 05/15/2018 0.92 0.57 - 1.00 mg/dL Final AST Date Value Ref Range Status 05/15/2018 30 0 - 40 IU/L Final CA 15-3 is normal/stable at 38. 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, estrogen receptor negative (CMS/HCC) Malignant neoplasm of left breast in female, estrogen receptor negative, unspecified site of breast (CMS/HCC) Expected: 06/12/2018, Expires: 05/16/2019 documented as of this encounter Procedures Procedure Name Priority Date/Time Associated Diagnosis Comments COMPREHENSIVE METABOLIC PANEL Routine 06/12/2018 12:56 PM CDT Malignant neoplasm of upper-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, estrogen receptor negative (CMS/HCC) Malignant neoplasm of left breast in female, estrogen receptor negative, unspecified site of breast (CMS/HCC) documented in this encounter Results * (ABNORMAL) Comprehensive metabolic panel (06/12/2018 12:56 PM CDT) Glucose 524(>) 65 - 99 mg/dL [facility] - 01 Comment:Verified by repeat analysis BUN 13 8 - 27 mg/dL [facility] - 01 Creatinine, Serum 0.78 0.57 - 1.00 mg/dL [facility] - 01 eGFR If NonAfricn Am 81 >59 mL/min/1.7 3 [facility] - 01 eGFR If Africn Am 94 >59 mL/min/1.7 3 [facility] - 01 BUN/creat ratio 17 12 - 28 [facility] - 01 Sodium 139 134 - 144 mmol/L [facility] - 01 Potassium, sr 3.5 3.5 - 5.2 mmol/L [facility] - 01 Chloride 90(L) 96 - 106 mmol/L [facility] - 01 CO2 30(H) 20 - 29 mmol/L [facility] - 01 Calcium 9.0 8.7 - 10.3 mg/dL [facility] - 01 Protein, sr 7.2 6.0 - 8.5 g/dL [facility] - 01 Albumin 4.5 3.6 - 4.8 g/dL [facility] - 01 Globulin, Total 2.7 1.5 - 4.5 g/dL [facility] - 01 A/G Ratio 1.7 1.2 - 2.2 [facility] - 01 Bilirubin, Total 0.8 0.0 - 1.2 mg/dL [facility] - 01 Alk phos 70 39 - 117 IU/L [facility] - 01 AST 19 0 - 40 IU/L [facility] - 01 ALT 15 0 - 32 IU/L [facility] - 01 Blood specimen (specimen) 06/12/2018 12:56 PM CDT 06/12/2018 Narrative [facility] - 06/13/2018 7:14 AM CDT Performed at: ??01 - [facility] [address], [place], [place] ??[id number] Customer Service Engineer: Jc Boyer PhD, Phone: ??[phone] us Annamaria Mosqueda DO LAB BLOOD ORDERABLES Final R esult [facility] - Ellie documented in this encounter Visit Diagnoses Diagnosis Malignant neoplasm of upper-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, estrogen receptor negative (HCC)- Primary Malignant neoplasm of left breast in female, estrogen receptor negative, unspecified site of breast (HCC) documented in this encounter Discontinued Medications Medication Sig Discontinue Reason Start Date End Da te gabapentin (NEURONTIN) 100 mg capsule Take by mouth 3 (three) times a day. Reorder 05/15/2018 documented as of this encounter Historical Medications * This list may reflect changes made after this encounter. metFORMIN (GLUCOPHAGE) 500 mg tablet Take 500 mg by mouth 2 (two) times a day with meals. 11/20/2019 added in this encounter Orders Appointment Requests Count Last Ordered Date Fi rst Ordered Date ONCBCN CLINIC APPOINTMENT REQUEST 2 019 05/15/2018 ONCBCN LAB APPOINTMENT 1 06/12/2018 documented in this encounter Care Teams Section Leader Relationship Specialty Start Date End Date Zeke Puente MD [address] [place] [address] PCP - General 07/10/17 06/11/18 Annamaria Mosqueda DO [address] [place] [address] Medical Oncologist/Jail Keeper Hematology and Oncology 10/25/17 documented as of this encounter
--- OUTSIDE RECORDS SUMMARY | 2024-02-26 21:39 | XMS_ITS | Encounter Summary ---
Author Organization [facility] Address [address] [place] [address] Care Team Providers Care Probation Agent Name Role Phone Zeke Puente MD Primary Care Provider [phone] Damon Swanson DO Unavailable [phone] Encounter Details Date Type Department Care Team (Latest Contact Info) Description 04/09/2018 4:47 PM FIGHTER PILOT - 04/09/2018 7:36 PM FIGHTER PILOT Hospital Encounter [address] [address] Vic Ortez MD [address] [place] [address] Discharge Disposition: Discharge to home or self care Social History Tobacco Use Types Packs/Day Years Used Date Smoking Tobacco: Never Smokeless Tobacco: Never Alcohol Use Standard Drinks/Week Comments No 0 (1 standard drink = 0.6 oz pur e alcohol) Comments Unknown Sex and Gender Information Value Date Recorded Sex Assigned at Not on file Legal Sex Female 12:30 PM FIGHTER PILOT Gender Identity Not on file Sexual Orientation Not on file documented as of this encounter Last Filed Vital Signs Vital Sign Reading Time Taken Comments Blood Pressure 142/68 04/09/2018 5:15 PM FIGHTER PILOT Pulse 81 04/09/2018 5:15 PM FIGHTER PILOT Temperature 36.8 ??C (98.2 ??F) 04/09/2018 5:15 PM CS T Respiratory Rate - - Oxygen Saturation 100% 04/09/2018 5:15 PM FIGHTER PILOT Inhaled Oxygen Concentration - - Weight 95.3 kg (210 lb) 04/09/2018 5:15 PM FIGHTER PILOT Height 157.5 cm (5' 2 ) 04/09/2018 5:15 PM FIGHTER PILOT Body Mass Index 38.41 04/09/2018 5:15 PM FIGHTER PILOT documented in this encounter Medications at Time [...] Diagnosis Comments CBC WITH AUTO DIFFERENTIAL Routine 04/09/2018 6:15 PM FIGHTER PILOT D-DIMER, QUANTITATIVE Routine 04/09/2018 6:15 PM FIGHTER PILOT B-TYPE NATRIURETIC PEPTIDE Routine 04/09/2018 6:15 PM FIGHTER PILOT COMPREHENSIVE METABOLIC PANEL Routine 04/09/2018 6:15 PM FIGHTER PILOT XR CHEST 1 VIEW Routine 04/09/2018 6:03 PM FIGHTER PILOT documented in this encounter Results * (ABNORMAL) D-dimer, quantitative (04/09/2018 6:15 PM FIGHTER PILOT) [facility] D-Dimer, Quantitative 0.62(H) 0.00 - 0.50 FEUug/ml 04/09/2018 6:41 PM FIGHTER PILOT [facility] HISTORICAL RESULTS Comment: Studies indicate that a D-Dimer level of <0.50 FEUug/ml has a >95% negative predictive value for DVT,DIC,PE and other embolus conditions. ??Levels >0.50 FEUug/ml may be present in a wide variety of conditions and should not be considered diagnostic of any disease state. 04/09/2018 6:15 PM FIGHTER PILOT 04/09/2018 6:19 PM FIGHTER PILOT Louie Urban [employer]PORATE [employer]ATE[employer] INTER[employer] LAB BLOOD ORDERABLES Debbie l Result Performing Organization Address [facility] de Phone Number [facility] HISTORICAL RESULTS * B-type natriuretic peptide (04/09/2018 6:15 PM FIGHTER PILOT) [facility] B-Natriuretic Peptide 34 0 - 100 pg/mL 04/09/2018 6:59 PM FIGHTER PILOT [facility] HISTORICAL RESULTS Comment: B Natriutetic Peptide METHOD: [...] hours of bolus or infusion of nesiritide. 04/09/2018 6:15 PM FIGHTER PILOT 04/09/2018 6:19 PM FIGHTER PILOT Louie Urban [employer]PORATE STRATEGY INTERN LAB BLOOD ORDERABLES Debbie l Result Performing Organization Address [facility] Co de Phone Number [facility] HISTORICAL RESULTS * (ABNORMAL) Comprehensive metabolic panel (04/09/2018 6:15 PM FIGHTER PILOT) Sodium 136 135 - 145 mmol/L Potassium 3.2(L) 3.3 - 5.1 mmol/L Chloride 93(L) 96 - 108 mmol/L Carbon Dioxide 32 22 - 32 mmol/L Anion Gap 11 7 - 16 Glucose 364(H) 70 - 100 mg/dL BUN 19 8 - 23 mg/dL Creatinine 0.7 0.5 - 1.1 mg/dL 04/09/2018 6:50 PM FIGHTER PILOT [facility] [employer] [facility] HISTORICAL RESULTS Comment: NOTE: Estimated GFR (Cockroft-Gault) will NOT be calculated unless patient Height and Weight were entered. Also, Kidney Disease Stage (GFR) and Estimated GFR (Cockroft-Gault) will NOT be calculated if Creatinine result is <0.2. Kidney Disease Stage > 90 mL/MIN 04/09/2018 6:50 PM [employer] [facility] HISTORICAL RESULTS Comment: NOTE; ??The GFR is [...] or on dialysis @ Est GFR (Cockcroft-G) 89 ml/MIN Comment: Estimated GFR(Cockroft-Gault)is used to calculate patient medication dosage Calcium 9.2 8.8 - 10.2 mg/dL 04/09/2018 6:50 PM FIGHTER PILOT [facility] HISTORICAL RESULTS Total Protein 7.5 6.4 - 8.3 g/dL Albumin 4.4 3.5 - 5.2 g/dL Globulin 3.1 2.3 - 3.5 gm/dL Albumin/Globulin Ratio 1.4 1.1 - 1.8 04/09/2018 6:50 PM FIGHTER PILOT [facility] HISTORICAL RESULTS Total Bilirubin 1.2 0.0 - 1.2 mg/dL AST 22 0 - 32 U/L ALT 14 0 - 33 U/L Alkaline Phosphatase 87 35 - 104 U/L 04/09/2018 6:15 PM FIGHTER PILOT 04/09/2018 6:19 PM FIGHTER PILOT us Ashleigh Contreras CORPORATE STRATEGY INTERN LAB BLOOD ORDERABLES Final Resul t [facility] HISTORICAL RESULTS * (ABNORMAL) CBC with auto differential (04/09/2018 6:15 PM FIGHTER PILOT) WBC 4.3 3.8 - 9.9 X10 3/ul RBC 3.62(L) 3.90 - 5.20 x10 6/ul Hemoglobin 11.1(L) 11.9 - 15.5 g/dL Hct 33.3(L) 35.6 - 45.5 % MCV 92.0 81.3 - 96.4 fl MCH 30.7 27.1 - 33.3 pg MCHC 33.3 32.3 - 35.7 g/dl 04/09/2018 6:28 PM [facility] HISTORICAL RESULTS RDW 14.1 11.1 - 14.9 % 04/09/2018 6:28 PM [facility] [employer] [facility] HISTORICAL RESULTS Plt Count 182 150 - 400 x10 3/ul 04/09/2018 6:28 PM [facility] HISTORICAL RESULTS MPV 11.0 9.1 - 12.3 fl 04/09/2018 6:28 PM [facility] HISTORICAL RESULTS Neut % 77.0 % 04/09/2018 6:28 PM [facility] HISTORICAL RESULTS Immature Gran % 0.2 % 9 6:28 PM [facility] HISTORICAL RESULTS Lymph % 14.6 % 04/09/2018 6:28 PM [facility] HISTORICAL RESULTS [place] % 6.3 % Eos % 1.4 % 04/09/2018 6:28 PM [facility] HISTORICAL RESULTS Baso % 0.5 % Absolute Neuts (auto) 3.3 1.7 - 6.5 x10 3/ul 04/09/2018 6:28 PM [facility] HISTORICAL RESULTS Immature Gran # 0.0 0.0 - 0.1 x10 3/ul 04/09/2018 6:28 PM [facility] HISTORICAL RESULTS Absolute Lymphs (auto) 0.6(L) 0.8 - 3.3 x10 3/ul 04/09/2018 6:28 PM [facility] [employer] [facility] HISTORICAL RESULTS Absolute Monos (auto) 0.3 0.2 - 0.8 x10 3/ul 04/09/2018 6:28 PM FIGHTER PILOT [facility] HISTORICAL RESULTS Absolute Eos (auto) 0.1 0.0 - 0.5 x10 3/ul 04/09/2018 6:28 PM FIGHTER PILOT [facility] HISTORICAL RESULTS Absolute Basos (auto) 0.0 0.0 - 0.1 x10 3/ul 04/09/2018 6:28 PM FIGHTER PILOT [facility] HISTORICAL RESULTS Nucleat RBC Rel Count 0.0 #/100WBC 04/09/2018 6:28 PM FIGHTER PILOT [facility] HISTORICAL RESULTS Absolute Nucleated RBC 0.00 0.00 - 0.01 x10 3/ul 04/09/2018 6:28 PM FIGHTER PILOT [facility] HISTORICAL RESULTS Absolute Neutrophils 3300 200 - 8000 /ul 04/09/2018 6:28 PM FIGHTER PILOT [facility] HISTORICAL RESULTS 04/09/2018 6:15 PM FIGHTER PILOT 04/09/2018 6:19 PM FIGHTER PILOT us Ashleigh Contreras CORPORATE STRATEGY INTERN LAB BLOOD ORDERABLES Final Resul t [facility] HISTORICAL RESULTS * XR Chest 1 View (04/09/2018 6:03 PM FIGHTER PILOT) Anatomical Region Laterality Modality Body, Chest N/A Radiographic Sylvia ging 04/09/2018 6:03 PM FIGHTER PILOT Impressions 04/09/2018 6:58 PM FIGHTER PILOT ??No acute cardiopulmonary disease. ??Mild cardiomegaly similar to the prior study. THIS IS AN ELECTRONICALLY VERIFIED FINAL REPORT 04/09/2018 6:55 PM - Electronically signed by Yoandy Dang M.D. AMALIA D: ??04/09/2018 6:55 PM T: Report ID: [id number] Reading Location: ??[id number] [EOD] Narrative 04/09/2018 6:58 PM FIGHTER PILOT EXAM DESCRIPTION: ??Chest 1 View Portable REASON FOR STUDY: ??PT STATES EDEMA TO BOTH LEGS, COUGH, COLD HANDS X TODAY, HX OF HIGH BLOOD PRESSURE TECHNIQUE: ??Frontal radiographic view of the chest acquired. COMPARISON: ??Chest radiograph 11/18/2017 FINDINGS: LUNGS/PLEURA: No focal consolidation or pneumothorax. No pleural effusion. HEART/MEDIASTINUM: The enlarged heart similar the prior study HARDWARE/LINES/TUBES: None. BONES: No acute findings. OTHER: No other significant finding. Procedure Note ProviderAlmita MD - 07/28/2020 EXAM DESCRIPTION: Chest 1 View Portable REASON FOR STUDY: PT STATES EDEMA TO BOTH LEGS, COUGH, COLD HANDS XTODAY, HX OF HIGH BLOOD PRESSURE TECHNIQUE: Frontal radiographic view of the chest acquired. COMPARISON: Chest radiograph 11/18/2017 FINDINGS: LUNGS/PLEURA: No focal consolidation or pneumothorax. No pleuraleffusion. HEART/MEDIASTINUM: The enlarged heart similar the prior study HARDWARE/LINES/TUBES: None. BONES: No acute findings. OTHER: No other significant finding. IMPRESSION: No acute cardiopulmonary disease. Mild cardiomegaly similarto the prior study. THIS IS AN ELECTRONICALLY VERIFIED FINAL REPORT 04/09/2018 6:55 PM - Electronically signed by Yoandy Dang M.D. AMALIA T: Report ID: [id number] Reading Location: [place] [address] [EOD] Louie Urban CORPORATE STRATEGY INTERN IMG XR PROCEDURES Final R esult documented in this encounter Visit Diagnoses Not on filedocumented in this encounter Care Teams Probation Agent Relationship Specialty Start Date End Date Zeke Puente MD [address] [place] [address] PCP - General 07/10/17 06/11/18 Damon Swanson DO [address] [place] [address] Medical Oncologist/Building Rigger Hematology and Oncology 10/25/17 documented as of this encounter
--- OUTSIDE RECORDS SUMMARY | 2024-02-26 21:39 | XMS_ITS | Encounter Summary ---
Author Organization [facility] Address [address] [place] [address] Phone Care Team Providers Care Translator And Interpreter Name Role Phone Zeke Puente MD Primary Care Provider [phone] Damon Swanson DO Unavailable [phone] Encounter Details Date Type Department Care Team (Late st Contact Info) Description 04/30/[address] [facility] Oncology [address] [place] [address] Damon Swanson, DO [address] [address] Social History Tobacco Use Types Packs/Day Years Used Date Smoking Tobacco: Never Smokeless Tobacco: Never Alcohol Use Standard Drinks/Week Comments No 0 (1 standard drink = 0.6 oz pur e alcohol) Comments Unknown Sex and Gender Information Value Date Recorded Sex Assigned at Not on file Legal Sex Female 12:30 PM PRODUCTION LEAD Gender Identity Not on file Sexual Orientation Not on file documented as of this encounter Miscellaneous Notes * Telephone Encounter - Jazmine Day RN - 04/30/2018 1:59 PM PRODUCTION LEAD Please call patient to reschedule missed appointment. Thank you. UCTION LEAD documented in this encounter Plan of Treatment Not on file documented as of this encounter Visit Diagnoses Not on filedocumented in this encounter Care Teams Translator And Interpreter Relationship Specialty Start Date End Date Zeke Puente MD [address] [place] [address] PCP - General 07/10/17 06/11/18 Damon Swanson DO [address] [place] [address] Medical Oncologist/Hotel Controller Hematology and Oncology 10/25/17 documented as of this encounter
--- OUTSIDE RECORDS SUMMARY | 2024-02-26 21:39 | XMS_ITS | Encounter Summary ---
Author Organization [facility] Healthcare Address [address] [place] [address] Care Team Providers Care Automotive Buyer Name Role Phone Unavailable Primary Care Provider Unavailabl e Encounter Details Date Type Department Care Team (Latest Contact Info) Description 09/21/2015 8:29 AM CDT Hospital Encounter [facility] OP Damon Swanson, DO [facility] [id number] Encounter for follow-up examination after completed treatment for malignant neoplasm; Personal history of malignant neoplasm of breast Social History Tobacco Use Types Packs/Day Years Used Date Smoking Tobacco: Never Assessed Comments Unknown Sex and Gender Information Value Date Recorded Sex Assigned at Not on file 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 ??No CT evidence of an acute inflammatory process in the abdomen. ??No CT evidence of metastatic disease in the abdomen. 2. ??Fluid collection in the subcutaneous tissues of the anterior abdominal wall, which appears unchanged compared to the prior study and likely represents a postoperative seroma. Automated exposure control was used as a dose optimization technique for this examination. THIS IS AN ELECTRONICALLY VERIFIED REPORT 09/21/2015 2:39 PM: ??Ben Tenorio M.D. ?? Ben Tenorio M.D. CN:brian 02:39 PM 02:39 PM [facility] [EOD] Narrative 09/21/2015 2:43 PM CDT EXAMINATION: CT abdomen with intravenous contrast HISTORY: Breast cancer, status post chemotherapy and radiation therapy. ??This is a restaging examination COMPARISON: CT abdomen 03/02/2015 TECHNIQUE: Computed tomographic images of the abdomen were obtained after the administration of 100 mL of Omnipaque 350 intravenous contrast via right antecubital fossa IV FINDINGS: Limited images of the lung bases do not demonstrate any focal consolidation or pleural effusion. ??There is a small to moderate pericardial effusion, which is only partially evaluated on this examination. There are punctate calcifications in the spleen, consistent with prior granulomatous disease. ??The liver, gallbladder, pancreas, kidneys, and adrenal glands are normal. ?? The visualized gastrointestinal tract is normal in caliber and no evidence of obstruction or inflammation. ??The appendix is visualized and is normal (axial images 84 through 94). Again noted is a fluid collection in the subcutaneous tissues of the anterior abdominal wall adjacent to multiple surgical clips, which is only partially visualized but appears unchanged. There is no abdominal lymphadenopathy or free fluid. ??There is no free intraperitoneal air. ??The abdominal aorta contains mild atherosclerotic calcification but is normal in caliber. Bone windows do not demonstrate any abnormal osseous lytic or blastic lesions. There is mild multilevel degenerative disc disease in the thoracolumbar spine. Procedure Note Provider, MD Almita - 07/28/2020 EXAMINATION: CT abdomen with intravenous contrast HISTORY: Breast cancer, status post chemotherapy and radiation therapy.This is a restaging examination COMPARISON: CT abdomen 03/02/2015 TECHNIQUE: Computed tomographic images of the abdomen were obtained afterthe administration of 100 mL of Omnipaque 350 intravenous contrast via right antecubital fossa IV FINDINGS: Limited images of the lung bases do not demonstrate any focalconsolidation or pleural effusion. There is a small to moderate pericardial effusion,which is only partially evaluated on this examination. There are punctate calcifications in the spleen, consistent with prior granulomatous disease. The liver, gallbladder, pancreas, kidneys, andadrenal glands are normal. The visualized gastrointestinal tract is normal in caliber and no evidenceof obstruction or inflammation. The appendix is visualized and is normal(axial images 84 through 94). Again noted is a fluid collection in thesubcutaneous tissues of the anterior abdominal wall adjacent to multiple surgicalclips, which is only partially visualized but appears unchanged. There is no abdominal lymphadenopathy or free fluid. There is no free intraperitoneal air. The abdominal aorta contains mild atherosclerotic calcification butis normal in caliber. Bone windows do not demonstrate any abnormal osseous lytic or blasticlesions. There is mild multilevel degenerative disc disease in the thoracolumbar spine. IMPRESSION: 1. No CT evidence of an acute inflammatory process in the abdomen. No CT evidence of metastatic disease in the abdomen. 2. Fluid collection in the subcutaneous tissues of the anterior abdominal wall, which appears unchanged compared to the prior study and likely represents a postoperative seroma. Automated exposure control was used as a dose optimization technique forthis examination. THIS IS AN ELECTRONICALLY VERIFIED REPORT 09/21/2015 2:39 PM: Ben Tenorio M.D. Ben Tenorio M.D. CN:brian 02:39 PM 02:39 PM [facility] [EOD] Damon Swanson DO IMG CT PROCEDURES Final Resu lt * CT Chest W Contrast (09/21/2015 12:00 AM CDT) Anatomical Region Laterality Modality Body N/A Computed Tomogra phy 09/21/2015 Impressions 09/21/2015 3:33 PM CDT ?? 1. ??No evidence for metastatic disease within the chest. 2. ??Small pericardial effusion. 3. ??Atherosclerosis and coronary artery disease. 4. ??Stable postoperative seroma within the upper outer quadrant of the right breast. THIS IS AN ELECTRONICALLY VERIFIED REPORT 09/21/2015 12:53 PM: ??Lamberto JohnO. ?? Ulises Marc D.O. :as 12:53 PM 12:53 PM [facility] [EOD] Narrative 09/21/2015 3:33 PM CDT EXAMINATION: ??CT CHEST with IV contrast HISTORY: ??Restaging breast cancer. TECHNIQUE: ??CT of the chest was performed with 100 mL Omnipaque 350 instilled intravenously ??into the right antecubital vein without complications. ?? Comparison is made to chest CT from 03/02/2015. FINDINGS: ??The heart is mildly enlarged and there is a small pericardial effusion which measures up to 1.4 cm in thickness posteriorly. ??The aorta is atherosclerotic but non-aneurysmal. ??The branching pattern of the great vessels is normal. Coronary arterial calcifications are again noted favoring the LAD. Persistent calcified right paratracheal, precarinal and subcarinal lymph nodes. ??No developing pathologically enlarged mediastinal or hilar lymphadenopathy. ??No centrally obstructive endobronchial lesion is identified. There is persistent linear scar within the left lung apex. ??Minimal ground-glass opacity noted within the right azygoesophageal recess adjacent to bridging osteophytes of the thoracic spine. ??There is no newly developing consolidation, pleural effusion or pneumothorax. ??No developing pulmonary nodule or mass is observed. There is a persistent fluid collection within the upper outer right breast posteriorly along the pectoralis musculature measuring 5.4 x 7.5 x 6.2 cm. ?? This is unchanged compared to the prior CT as well as mammography from 11/07/2014 most typical of a seroma. Limited visualized portions of the upper abdomen are grossly unremarkable. ?? There are moderate degenerative changes of the thoracic spine. ??There is no compression fracture. ??No aggressive osteolytic or blastic lesions are identified. Procedure Note Provider, MD Almita - 07/28/2020 EXAMINATION: CT CHEST with IV contrast HISTORY: Restaging breast cancer. TECHNIQUE: CT of the chest was performed with 100 mL Omnipaque 350instilled intravenously into the right antecubital vein without complications. Comparison is made to chest CT from 03/02/2015. FINDINGS: The heart is mildly enlarged and there is a small pericardial effusion which measures up to 1.4 cm in thickness posteriorly. The aortais atherosclerotic but non-aneurysmal. The branching pattern of the great vessels is normal. Coronary arterial calcifications are again notedfavoring the LAD. Persistent calcified right paratracheal, precarinal and subcarinal lymph nodes. No developing pathologically enlarged mediastinal or hilar lymphadenopathy. No centrally obstructive endobronchial lesion isidentified. There is persistent linear scar within the left lung apex. Minimal ground-glass opacity noted within the right azygoesophageal recessadjacent to bridging osteophytes of the thoracic spine. There is no newly developing consolidation, pleural effusion or pneumothorax. No developing pulmonary nodule or mass is observed. There is a persistent fluid collection within the upper outer right breast posteriorly along the pectoralis musculature measuring 5.4 x 7.5 x 6.2 cm. This is unchanged compared to the prior CT as well as mammography from 11/07/2014 most typical of a seroma. Limited visualized portions of the upper abdomen are grossly unremarkable. There are moderate degenerative changes of the thoracic spine. There isno compression fracture. No aggressive osteolytic or blastic lesions are identified. IMPRESSION: 1. No evidence for metastatic disease within the chest. 2. Small pericardial effusion. 3. Atherosclerosis and coronary artery disease. 4. Stable postoperative seroma within the upper outer quadrant of theright breast. THIS IS AN ELECTRONICALLY VERIFIED REPORT 09/21/2015 12:53 PM: Ulises Settler, D.O. Ulises Marc D.O. :as 12:53 PM 12:53 PM [facility] [EOD] Damon Swanson DO IMG CT PROCEDURES Final Resu lt documented in this encounter Visit Diagnoses Diagnosis Encounter for follow-up examination after completed treatment for malignant neoplasm Personal history of malignant neoplasm of breast documented in this encounter
--- OUTSIDE RECORDS SUMMARY | 2024-02-26 21:39 | XMS_ITS | Encounter Summary ---
Author Organization [facility] Healthcare Address [address] [place] [address] Care Team Providers Care Pulpwood Dealer Name Role Phone Unavailable Primary Care Provider Unavailabl e Encounter Details Date Type Department Care Team (Latest Contact Info) Description 10/30/2013 1:11 PM CDT Hospital Encounter [facility] Rene Fowler MD [address] [place] [address] Encounter for screening mammogram for high-risk patient; Personal history of malignant neoplasm of breast Social History Tobacco Use Types Packs/Day Years Used Date Smoking Tobacco: Never Assessed Comments Unknown Sex and Gender Information Value Date Recorded Sex Assigned at Not on file 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 Gender Identity Not on file Sexual Orientation Not on file documented as of this encounter Plan of Treatment Not on file documented as of this encounter Procedures Procedure Name Priority Date/Time Associated Diagnosis Comments SCREENING MAMMOGRAM 2D BILATERAL Routine 10/30/2013 1:12 PM CDT GENERAL RADIOLOGY REPORT 10/30/2013 12:00 AM CDT documented in this encounter Results * Screening Mammogram 2D Bilateral (10/30/2013 1:12 PM CDT) Anatomical Region Laterality Modality Breast Bilateral Mammography 10/30/2013 1:12 PM CDT Impressions 10/30/2013 2:58 PM CDT No evidence of malignancy in either breast. ??Benign post-treatment appearance of the breasts. ??Benign-appearing right breast fluid collection. ASSESSMENT: ??BI-RADS: 2 BENIGN. Routine annual screening mammography is recommended in 12 months. The patient will be entered into a reminder system for an annual screening mammogram in 1 year. THIS IS AN ELECTRONICALLY VERIFIED REPORT 10/30/2013 2:55 PM: ??Venkat Champion M.D. Venkat Champion M.D. NH:md 02:55 PM 02:55 PM [facility] [EOD] Narrative 10/30/2013 2:58 PM CDT EXAMINATION: BILATERAL DIGITAL SCREENING MAMMOGRAM HISTORY: ??Routine screening. History of bilateral lumpectomies for invasive ductal carcinoma in October 2010 with subsequent chemotherapy and radiation therapy. ??Re-excision of left upper outer quadrant lumpectomy site on the 04/29/2011 demonstrated invasive ductal carcinoma with negative margins. ?? Chronic right breast fluid collection status post multiple aspirations. COMPARISON: ??03/25/2011, 04/26/2012, 10/30/2012 FINDINGS: The breasts are almost entirely fatty. Post lumpectomy changes in both upper outer quadrants have not suspiciously changed. Partially visualized dense mass in the upper outer right breast has not suspiciously changed and is consistent with a benign postsurgical fluid collection. Skin thickening and trabecular thickening have decreased in both breasts. There is no new mass, suspicious calcification or new architectural distortion in either breast. CAD was utilized to evaluate this mammogram. Procedure Note Provider, MD Almita - 07/28/2020 EXAMINATION: BILATERAL DIGITAL SCREENING MAMMOGRAM HISTORY: Routine screening. History of bilateral lumpectomies forinvasive ductal carcinoma in October 2010 with subsequent chemotherapy and radiation therapy. Re-excision of left upper outer quadrant lumpectomy site on the 04/29/2011 demonstrated invasive ductal carcinoma with negative margins. Chronic right breast fluid collection status post multiple aspirations. COMPARISON: 03/25/2011, 04/26/2012, 10/30/2012 FINDINGS: The breasts are almost entirely fatty. Post lumpectomy changes in both upper outer quadrants have notsuspiciously changed. Partially visualized dense mass in the upper outer right breast has not suspiciously changed and is consistent with a benign postsurgical fluid collection. Skin thickening and trabecular thickening have decreased in bothbreasts. There is no new mass, suspicious calcification or new architecturaldistortion in either breast. CAD was utilized to evaluate this mammogram. IMPRESSION: No evidence of malignancy in either breast. Benign post-treatmentappearance of the breasts. Benign-appearing right breast fluid collection. ASSESSMENT: BI-RADS: 2 BENIGN. Routine annual screening mammography is recommended in 12 months. The patient will be entered into a remindersystem for an annual screening mammogram in 1 year. THIS IS AN ELECTRONICALLY VERIFIED REPORT 10/30/2013 2:55 PM: Venkat Champion M.D. Venkat Champion M.D. NH:serena 02:55 PM 02:55 PM [facility] [EOD] Rene MONTERO MAMMO PROCEDURES Final Result * GENERAL RADIOLOGY REPORT (10/30/2013 12:00 AM CDT) Anatomical Region Laterality Modality Radiographic Sylvia ging Narrative 10/30/2013 12:00 AM CDT Ordered by an unspecified provider. Historical Provider MD MONTERO XR PROCEDURES Final R esult documented in this encounter Visit Diagnoses Diagnosis Encounter for screening mammogram for high-risk patient Personal history of malignant neoplasm of breast documented in this encounter
--- OUTSIDE RECORDS SUMMARY | 2024-02-26 21:39 | XMS_ITS | Encounter Summary ---
Author Organization [facility] Address [address] [place] [address] Phone Care Team Providers Care Bessemer Bottom Maker Name Role Phone Zeke Puente MD Primary Care Provider [phone] Damon Swanson DO Unavailable [phone] Encounter Details Date Type Department Care Team (Late st Contact Info) Description 10/30/2017 10:30 AM CDT Lab [facility] Oncology [address] [place] [phone] Social History Tobacco Use Types Packs/Day Years Used Date Smoking Tobacco: Never Smokeless Tobacco: Never Alcohol Use Standard Drinks/Week Comments No 0 (1 standard drink = 0.6 oz pur e alcohol) Comments Unknown Sex and Gender Information Value Date Recorded Sex Assigned at Not on file 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
--- OUTSIDE RECORDS SUMMARY | 2024-02-27 03:13 | XMS_ITS | Encounter Summary ---
Author Organization [facility] Address [address] [place] [address] Care Team Providers Care Advanced Solutions Architect Name Role Phone Damon Swanson DO Unavailable [phone] Zeke Puente MD Primary Care Provider [phone] Sarah Baldwin MD, Karl Romero Unavailable Arley Peña MD Unavailable [phone] Encounter Details Date Type Department Care Team (Late st Contact Info) Description 12/08/2021 Orders Only [facility] Cardiology [address] [place] [address] Beto Ortez MD [address] [address] Social History Tobacco Use Types [...] declined 06/17/2020 How often do you attend judaism or church serv ices? 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 Gender Identity Not on file Sexual Orientation Not on file documented as of this encounter Plan of Treatment Not on file documented as of this encounter Procedures Procedure Name Priority Date/Time Associated Diagnosis Comments CARDIOLOGY DOCUMENT SCAN Routine 12/08/2021 documented in this encounter Results * Cardiology Document Scan (12/08/2021) Anatomical Region Laterality Modality Other [facility] Eliezer Ortez MD CV CARDIAC SERVICES PRO CEDURES Final Result documented in this encounter Visit Diagnoses Not on filedocumented in this encounter Care Teams Advanced Solutions Architect Relationship Specialty Start Date End Date Zeke Puente MD [address] [place] [address] PCP - General 12/02/18 Damon Swanson DO [address] [place] [address] Medical Oncologist/Hydroelectric Plant Operator Hematology and Oncology 10/25/17 Karl Smith Jr., MD [address] [place] [id number] Surgeon General Surgery 11/07/19 Arley Peña MD [address] [place] [id number] Surgeon General Surgery 06/26/20 documented as of this encounter
--- OUTSIDE RECORDS SUMMARY | 2024-02-27 03:13 | XMS_ITS | Referral Summary ---
Author Organization [facility] Address [address] [place] [address] Care Team Providers Care Contract Management Specialist Name Role Phone Unavailable Primary Care Provider Unavailabl e Source Comments [facility],non-owned Affiliates and Associated Physician Practices is amultiple site organization consisting of ambulatory clinics and hospital sitesin [place], [place], [place] and [place]. This disclosure is being madepursuant to the Care Everywhere program and may not contain all information available regarding this patient. Last updated 17.[facility] Social History Tobacco Use Types Packs/Day Years Used Date Smoking Tobacco: Never Assessed Sex and Gender Information Value Date Recorded Sex Assigned at Not on file Gender Identity Not on file Sexual Orientation Not on file Plan of Treatment Not on file
--- OUTSIDE RECORDS SUMMARY | 2024-02-27 03:13 | XMS_ITS | Encounter Summary ---
Author Organization [facility] Address [address] [place] [address] Care Team Providers Care Automotive Parts Manager Name Role Phone Damon Swanson DO Unavailable Zeke Puente MD Primary Care Provider Sarah Baldwin MD, Karl Romero Unavailable Arley Peña MD Unavailable [phone] Reason for Visit * Reason Comments Edema Encounter Details Date Type Department Care Team (Late st Contact Info) Description 09/02/2023 10:14 AM CDT - 09/03/2023 12:38 AM CDT Emergency [facility] Emergency Department 1 [facility] [place] [address] Lakisha Díaz MD [address] [place] [address] [place] [address] Yudith Ho MD [address] [place] [address] [place] [address] Urinary tract infection without hematuria, site unspecified [...] often do you attend chur ch or hindu services? 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 * Bladder Infection, Female (Adult) (Italian) documented in this encounter Medications at Time [...] last few days staff members at the custodial facility she is from noted she has been more distended in her abdomen and left-sided arm swelling. Last bowel movement unknown. Patient History: Patient Active Problem List Diagnosis Date Noted Hypoglycemia 06/25/2022 Dementia ([facility]) Diabetes mellitus ([facility]) Hypertension Gastrointestinal hemorrhage 06/16/2020 Sepsis ([facility]) 11/20/2019 Acute hematogenous osteomyelitis of right foot ([facility]) 11/20/2019 PVD (peripheral vascular disease) ([facility]) 11/20/2019 Anemia 11/20/2019 COVID-19 11/20/2019 Hypothyroidism 11/20/2019 Hyperlipidemia 11/20/2019 Pressure injury of sacral region, stage 4 ([facility]) 11/20/2019 Moderate malnutrition ([facility]) ([facility]) 11/07/2019 Malignant neoplasm of upper-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, estrogen receptor negative ([facility]) 11/13/2017 Past Medical History: Diagnosis Date Dementia ([facility]) Diabetes mellitus ([facility]) Hypertension Past Surgical History: Procedure Laterality Date [...] CDT Patient to ED via EMS from [facility] for swelling to left arm and to [...] current clinical standards) Comment:Testing performed by : [facility], [address] [place]., [address] Organism (CLINICALLY INSIGNIFICANT GROWTH ASHLEIGH MCGINNIS ([place]) Urine 09/02/2023 1:53 PM CDT 09/02/2023 5:59 PM CDT Narrative [facility] ([place]) - 09/03/2023 7:26 PM CDT Urine culture reflexed based upon urinalysis results. Testing performed by [facility] Microbiology Laboratory ([phone]) Lakisha Díaz MD LAB MICROBIOLOGY - GENERAL ORDERABLES Final Result [facility] ([place]) 1 [facility] Department of Laboratories [place], [place] [id number] * (ABNORMAL) Urinalysis, microscopic only (09/02/2023 1:53 [...] ORDERABLE S Final Result Performing Organization Address [facility]/State/ZIP Co de Phone Number [facility] ([place]) 1 [facility] [place] [address] * (ABNORMAL) Urinalysis reflex to microscopic and culture Urine (09/02/2023 1:53 PM CDT) Color, ur Light-Stephenson Clarity, ur Turbid(A) Clear CERNER A [facility] [...] tendency for uric acid stone formation. Source: [facility] Current Interpretive Data was last revised on [...] - GENERAL ORDERABLES Final Result ASHLEIGH MCGINNIS ([place]) 1 [facility] [place] [address] * CT Abdomen Pelvis W Contrast (09/02/2023 [...] PM T: ??09/02/2023 1:35 PM Report ID: [id number] Reading Location: ??[id number] Procedure Note Micah Whittington MD - 09/02/2023 [...] Micah Whittington M.D. LB: TERRANCE Report ID: [id number] Reading Location: [place] [address] Lakisha Díaz MD IMG CT PROCEDURES F [...] BLOOD ORDERABLE S Final Result [facility] ([place]) 1 [facility] [place] [address] * Differential, auto (09/02/2023 12:08 PM CDT) Neutrophil abs 3.9 1.5 - 6.5 K/cumm Imm gran abs 0.0 0.0 - 0.1 K/cumm [facility] ([place]) Lymphocyte abs 1.0 0.8 - 3.3 K/cumm [facility] ([place]) Monocyte abs 0.4 0.2 - 0.8 K/cumm [...] 2017. Eosinophil pct 2.4 % SHANNON MCGINN[facility] ([place]) Comment: Interpretive Data Percent cell count reference ranges are not reported, since discordance with absolute values may lead to misinterpretation of CBC data. Current Interpretive Data was last revised on 2017. Basophil pct 0.9 % [facility] MCG[facility] ([place]) Comment: Interpretive Data Percent cell count reference ranges are not reported, since discordance with absolute values may lead to misinterpretation of CBC data. Current Interpretive Data was last revised on 2017. Blood 09/02/2023 12:0 8 PM CDT 09/02/2023 12:21 PM CDT Lakisha Díaz MD LAB BLOOD ORDERABLE S Final Result Performing Organization Address [facility] de Phone Number ASHLE[facility] MCGINN[facility] ([place]) 1 [facility] [place] [address] * (ABNORMAL) Protime-INR (09/02/2023 12:08 PM CDT) [...] ORDERABLE S Final Result Performing Organization Address [facility] Co de Phone Number [facility]LE[facility] MCGINN[facility] ([place]) 1 [facility] [place] [address] * (ABNORMAL) Comprehensive metabolic panel (09/02/2023 12:08 [...] S Final Result [facility] ([place]) 1 [facility] [place] [address] * (ABNORMAL) CBC with auto differential (09/02/2023 [...] S Final Result [facility] MCG[facility] ([place]) 1 [facility] [place] [address] * US Vein Duplex Upper Extremity Left [...] PM T: ??09/02/2023 12:03 PM Report ID: [id number] Reading Location: ??[id number] Procedure Note Laith Robles MD - 09/02/2023 [...] Laith Robles M.D. AG: AG Report ID: [id number] Reading Location: [id number] Lakisha Díaz MD [facility] PROCEDURES F inal Result documented in this [...] 09/02/2023 documented in this encounter Care Teams Automotive Parts Manager Relationship Specialty Start Date End Date Zeke Puente MD [address] [place] [address] PCP - General 12/02/18 Damon Swanson DO [address] [place] [address] Medical Oncologist/Splitter Operator Hematology and Oncology 10/25/17 Karl Smith Jr., MD [address] [place] [address] Surgeon General Surgery 11/07/19 Arley Peña MD [address] [place] [address] Surgeon General Surgery 06/26/20 documented as of this encounter
--- OUTSIDE RECORDS SUMMARY | 2024-02-27 03:13 | XMS_ITS | Encounter Summary ---
Author Organization [facility] Address [address] [facility] [address] [place] [address] Care Team Providers Care Cadd Manager Name Role Phone Damon Swanson DO Unavailable Zeke Puente MD Primary Care Provider Sarah Baldwin MD, Karl Romero Unavailable [phone] Arley Peña MD Unavailable [phone] Encounter Details Date Type Department Care Team (Late st Contact Info) Description 12/07/2021 Orders Only [facility] Cardiology [address] [facility] [address] [place] [address] Beto Ortez MD [address] [address] Social History Tobacco Use Types [...] declined 06/17/2020 How often do you attend holiness or hoahaoism serv ices? 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 Gender Identity Not on file Sexual Orientation Not on file documented as of this encounter Plan of Treatment Not on file documented as of this encounter Procedures Procedure Name Priority Date/Time Associated Diagnosis Comments CARDIOLOGY DOCUMENT SCAN Routine 12/07/2021 documented in this encounter Results * Cardiology Document Scan (12/07/2021) Anatomical Region Laterality Modality Other [facility] Eliezer Ortez MD CV CARDIAC SERVICES PRO CEDURES Final Result documented in this encounter Visit Diagnoses Not on filedocumented in this encounter Care Teams Cadd Manager Relationship Specialty Start Date End Date Zeke Puente MD [address] [place] [address] PCP - General 12/02/18 Damon Swanson DO [address] [place] [address] Medical Oncologist/Associate Professor Of Anthropology Hematology and Oncology 10/25/17 Karl Smith Jr., MD [address] [place] [id number] Surgeon General Surgery 11/07/19 Arley Peña MD [address] [place] [id number] Surgeon General Surgery 06/26/20 documented as of this encounter
--- OUTSIDE RECORDS SUMMARY | 2024-02-27 03:13 | XMS_ITS | Encounter Summary ---
Author Organization [facility] Address [address] [place] [address] Care Team Providers Care Restaurant Worker Name Role Phone Damon Swanson DO Unavailable [phone] Zeke Puente MD Primary Care Provider Sarah Baldwin MD, Karl Romero Unavailable Arley Peña MD Unavailable [phone] Encounter Details Date Type Department Care Team (Late st Contact Info) Description 05/17/2022 Orders Only [facility] Cardiology [address] [facility] [address] [place] [address] Beto Ortez MD [address] [address] Social History Tobacco Use Types [...] declined 06/17/2020 How often do you attend methodist or sabianism serv ices? Patient declined 06/17/2020 Do you belong to any clubs o r organizations such as methodist groups, unions, fraternal or athletic groups, or [...] on file Legal Sex Female 12:30 PM ADULT SPECIALIST Gender Identity Not on file Sexual Orientation Not on file documented as of this encounter Plan of Treatment Not on file documented as of this encounter Procedures Procedure Name Priority Date/Time Associated Diagnosis Comments CARDIOLOGY DOCUMENT SCAN Routine 05/17/2022 documented in this encounter Results * Cardiology Document Scan (05/17/2022) Anatomical Region Laterality Modality Other [facility] Eliezer Ortez MD CV CARDIAC SERVICES PRO CEDURES Final Result documented in this encounter Visit Diagnoses Not on filedocumented in this encounter Care Teams Restaurant Worker Relationship Specialty Start Date End Date Zeke Puente MD [address] [facility] [place] [address] PCP - General 12/02/18 Damon Swanson DO [address] [place] [address] Medical Oncologist/Mosaicist Hematology and Oncology 10/25/17 Karl Smith Jr., MD [address] [place] [id number] Surgeon General Surgery 11/07/19 Arley Peña MD [address] [place] [id number] Surgeon General Surgery 06/26/20 documented as of this encounter
--- OUTSIDE RECORDS SUMMARY | 2024-02-27 03:13 | XMS_ITS | Encounter Summary ---
Author Organization [facility] Address [address] [place] [address] Care Team Providers Care Theatre Professor Name Role Phone Damon Swanson DO Unavailable [phone] Zeke Puente MD Primary Care Provider Sarah Baldwin MD, Karl Romero Unavailable Arley Peña MD Unavailable [phone] Encounter Details Date Type Department Care Team (Late st Contact Info) Description 12/06/2021 Orders Only [facility] Cardiology [address] [facility] [address] [place] [address] Beto Ortez MD [address] [address] Social History Tobacco Use Types [...] declined 06/17/2020 How often do you attend pentecostalism or judaism serv ices? Patient declined 06/17/2020 Do you belong to any clubs o r organizations such as pentecostalism groups, unions, fraternal or athletic groups, or [...] on file Legal Sex Female 12:30 PM SEAMAN Gender Identity Not on file Sexual Orientation Not on file documented as of this encounter Plan of Treatment Not on file documented as of this encounter Procedures Procedure Name Priority Date/Time Associated Diagnosis Comments CARDIOLOGY DOCUMENT SCAN Routine 12/06/2021 documented in this encounter Results * Cardiology Document Scan (12/06/2021) Anatomical Region Laterality Modality Other [facility] Eliezer Ortez MD CV CARDIAC SERVICES PRO CEDURES Final Result documented in this encounter Visit Diagnoses Not on filedocumented in this encounter Care Teams Theatre Professor Relationship Specialty Start Date End Date Zeke Puente MD [address] [facility] [place] [address] PCP - General 12/02/18 Damon Swanson DO [address] [place] [address] Medical Oncologist/Farm Equipment Technician Hematology and Oncology 10/25/17 Karl Smith Jr., MD [address] [place] [id number] Surgeon General Surgery 11/07/19 Arley Peña MD [address] [place] [id number] Surgeon General Surgery 06/26/20 documented as of this encounter
--- OUTSIDE RECORDS SUMMARY | 2024-02-27 03:13 | XMS_ITS | Encounter Summary ---
Author Organization [facility] Address [address] [facility] [address] [place] [address] Care Team Providers Care Build And Release Manager Name Role Phone Damon Swanson DO Unavailable Zeke Puente MD Primary Care Provider Sarah Baldwin MD, Karl Romero Unavailable Arley Peña MD Unavailable [phone] Encounter Details Date Type Department Care Team (Late st Contact Info) Description 12/06/2021 Orders Only [facility] Cardiology [address] [place] [address] Bud Mustafa MD [address] [facility] [address] [facility] [address] [place], [place] [address] Social History Tobacco Use Types Packs/Day Years [...] declined 06/17/2020 How often do you attend adventist or yarsanism serv ices? 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
--- OUTSIDE RECORDS SUMMARY | 2024-02-27 03:13 | XMS_ITS | Clinical Summary ---
Author Organization [facility] Address [address] [place] [address] Phone Care Team Providers Care Argon Tester Name Role Phone Damon SwansonTesha DO Unavailable Zeke Puente MD Primary Care Provider [phone] Sarah Baldwin MD, Karl Romero Unavailable [phone] Arley Peña MD Unavailable [phone] Allergies Active Allergy Reactions Criticality Noted Date Comments Codeine Phosphate Nausea & Vomiting Low 10/08/2012 Medications amLODIPine (NORVASC) 10 mg tablet Take 1 tablet (10 mg total) by mouth daily Active atorvastatin (LIPITOR) 40 mg tablet Take 1 tablet (40 mg total) by mouth daily Active levothyroxine (SYNTHROID) 100 mcg tablet Take 1 tablet (100 mcg total) by mouth business asst before breakfast 30 tablet 1 1 Active [...] (06/21/2020): Added automatically from request for surgery [id number] Sepsis 11/20/2019 Acute hematogenous osteomyelitis of right [...] on file Legal Sex Female 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 ??Minority populations were underrepresented and children were not included. ?? (Diabetes Care 31:8022-6776, 2007). ??The eAG is not equivalent to a fasting glucose. Blood specimen (specimen) 06/18/2020 5:43 AM CDT 06/18/2020 6:23 AM CDT us Summer Anguiano MD LAB BLOOD ORDERABLES Final Result [facility] [address] [place] [address] * Screening Mammogram Bilateral W Zac (12/26/2016 [...] by: Edwar Deng M.D., md/:12/26/2016 11:34:53 ?? Paid Search Specialist: Layne Iniguez RT (R)(M), [facility] letter sent: Normal Exam ?? Reading location: [facility] BI-RADS: 2 Benign [EOD] Narrative 12/26/2016 [...] mammogram, 11/07/2014 mammogram, and 10/30/2013 mammogram - [facility]. ?? BREAST TISSUE: The tissue [...] 12/18/2015 mammogram,11/07/2014 mammogram, and 10/30/2013 mammogram - [facility]. BREAST TISSUE: The tissue of [...] signed by: Edwar Deng M.D., md/:12/26/2016 11:34:53 Paid Search Specialist: Layne Iniguez RT (R)(M), [facility] letter sent: Normal Exam Reading location: [facility] BI-RADS: 2 Benign [EOD] Damon Swanson DO IMG MAMMO PROCEDURES Final R esult from Last 3 Months or Most Recently Relevant to Health Maintenance Insurance MEDICARE [facility] MEDICARE [place]ICARE [id number] Advance Directives For more information, please contact: [phone] Documents on File Type Date Recorded Patient Reject Opener Expl anation ADVANCE DIRECTIVE 09/04/2023 2:51 PM POLST - Phys Order for PT Preferences ADVANCE DIRECTIVE 02/28/2019 12:00 AM [facility] HAND FINANCIAL/MEDICAL * Full Code (Latest Code Status [...] 12:51 AM 11/20/2019 10:35 PM Care Teams Argon Tester Relationship Specialty Start Date End Date Zeke Puente MD [address] [place] [address] PCP - General 12/02/18 Damon Swanson DO [address] [place] [address] Medical Oncologist/Director Of Housing And Energy Services Hematology and Oncology 10/25/17 Karl Smith Jr., MD [address] [place] [address] Surgeon General Surgery 11/07/19 Arley Peña MD [address] [place] [address] Surgeon General Surgery 06/26/20
--- OUTSIDE RECORDS SUMMARY | 2024-02-27 03:13 | XMS_ITS | Encounter Summary ---
Author Organization [facility] Address [address] [place] [address] Care Team Providers Care Sales Product Manager Name Role Phone Unavailable Primary Care Provider Unavailabl e Encounter Details Date Type Department Care Team (Latest Contact Info) Description 09/10/2010 12:01 AM CDT - 09/10/2010 11:59 PM CDT Hospital Encounter [place] [address] [place] [address] Rene Fowler MD [address] [address] Medical Outpatient Discharge Disposition: Home [...] ORDERABLES [facility] [address] [address] documented in this encounter Visit Diagnoses Diagnosis Malignant neoplasm of breast (female), unspecified site (HCC) Malignant neoplasm of breast (female), unspecified site documented in this encounter
--- OUTSIDE RECORDS SUMMARY | 2024-02-27 03:13 | XMS_ITS | Encounter Summary ---
Author Organization [facility] Healthcare Address [address] [place] [address] Care Team Providers Care Sys Dir Name Role Phone Damon Swanson DO Unavailable Zeke Puente MD Primary Care Provider [phone] Sarah Baldwin MD, Karl N. Unavailable Arley Peña MD Unavailable [phone] Reason for Visit * Reason Comments Vaginal Discharge * Auth/Cert (Routine) Specialty Diagnoses / Procedures Referred By Contac t Referred To Contact Diagnoses Hypoglycemia Urinary tract infection without hematuria, site unspecified Anemia, unspecified type Procedures NA Referral ID Status Reason Start Date Expiration Date Visits Re quested Visits Authorized [id number] 1 1 Encounter Details Date Type Department Care Team (Latest Contact Info) Description 06/25/2022 2:07 PM CDT - 06/28/2022 5:20 PM CDT Hospital Encounter [address] [id number] Max Iverson MD [address] [place] [address] [id number] Elias Abraham MD [address] [place] [phone] Hypoglycemia (Primary Dx); Urinary tract infection [...] often do you attend chur ch or baptist services? 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 DETAILS OF HOSPITAL STAY Presenting Problem/History of Present Illness: 67 yr old female with past medical history significant for Hypertension, DM, Dementia, bilateral AKA [place] hospital from [place] with hypoglycemia. According to report from long-term, patient is having hypoglycemic events and last [...] Hospital Course: Patient is 67 yo female long-term resident admitted with altered mental status secondary to hypoglycemia. Symptoms resolved and mental status back to baseline. She was transfused a unit of blood for hemoglobin less than 7. Iron studies were consistent with iron deficiency anemia. Patient was prescribed ferrous sulfate upon discharge. 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 Thank you! Discharge Medications: Current Medications TAKE [...] 1 tablet (100 mcg total) by mouth material chaser before breakfast Commonly known as: SYNTHROID NovoLOG [...] PM CDT Call inpatient dietitian office at [facility] in [place] with any nutrition-related questions or concerns ([phone]). Thank you! * Attachments The following attachments cannot be sent through Care Everywhere. * Anemia (AfterCare(R) Instructions(ER/ED)) (Monegasque) * Heart Failure (AfterCare(R) Instructions(ER/ED)) (Monegasque) documented in this encounter Medications at Time [...] with patient and family, pt is a long-term resident at [facility] . At thistime pt/family plan for patient to return there at d/c. Referral sent. Spoke with Jim at facility and pt can return. [facility] [address] [place] [address] Transportation at d/c will be provided by [employer] # [id number] and case picker is anticipated today @12:30 pm EMS [...] depth pinch but not ample Muscle Loss [place] - Temporalis Muscle: Can see/feel well-defined [...] Diet Instructions Call inpatient dietitian office at [facility] with any nutrition-related questions or concerns ([phone]). Thank you! Nutrition Follow-Up : 07/01/22 (PO [...] Additional Comments Pt reports she lives at [facility] Prior Function Prior Function Comments [...] Care Facility PT Recommendation/Plan Comments Pt at [facility]. 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 MACHINE MECHANIC: No 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 Lab/Radiology/Diagnostic Review: Laboratory review: [...] (06/27/22 1215) Health Insurance Coverage: Medicare & [place] Complete Prescription Coverage: Medicare & [place] Complete Pharmacy: [facility] - [address] [phone] [facility] [address] IN [place], [place] - [address] [facility] [address] [facility] [address] Primary Care Provider: Zeke Puente MD Prior to Admission: Primary Caregiver: Facility staff Who does the patient or legal guardian want to receive education instruction and discharge plans for after care assistance?: Decline Support System: Children Home Care Services: No Durable Medical Equipment: Wheelchair, Sharona lift (sharona used at facility) Living Arrangements: senior living Type of Residence: senior living Does patient wish to return to care facility?: Yes, wishes to return Will the care facility allow the patient to return?: Yes, patient can return Care Facility Name: [facility] (06/25/22 2300) SDOH: Transportation: In the past 12 months, has lack of transportation kept you from medical appointments or from getting medications?: No (long-term resident) In the past 12 months, has lack of transportation kept you from meetings, work, or from getting things needed for daily living?: No (long-term resident) (06/27/22 121) Financial Resource: How hard is it for you to pay for the very basics like food, housing, medical care, and heating?: Not hard at all (long-term resident) (06/27/221214) Social Connections: In a typical week, how many times do you talk on the phone with family, friends, or neighbors?: Three times a week (long-term resident) How often do you get together with friends or relatives?: Once a week (long-term resident) How often do you attend yazidi or baptist services?: Never (long-term resident) Do you belong to any clubs or organizations such as yazidi groups, unions, fraternal or athletic groups, or school groups?: No (long-term resident) How often do you attend meetings of the clubs or organizations you belong to?: Never (long-term resident) Are you , , , , never , or living with a partner?: Never (06/27/221214) Potential discharge needs include: EMS transportation Patient expects to be Discharged to: senior living (long-term), (06/27/221214) Additional Information: CM met with pt at bedside during PFR and at this time the pt's preference is to return [facility] at discharge. Pt is w/c bound at [...] Collaboration with patient, MD, direct care nurse, Emblem Cutter, and other members of the health care team to assure needed interventions completed. 2. Return patient to optimal level of self-care post discharge. 3. Electronics Technician will follow for Discharge Planning - interventions [...] 1529 Patient Spiritual Assessment Spirituality Assessed Yes Mormonism Affiliation Zoroastrianism Saints Active in Adventism Yes Place of [facility] Clinical Encounter Type Visited With Patient Response Type Routine visit Routine Visit Introduction Reason for visit Support Pastoral care visit received patient who stated that she was feeling wonderful, but expressed concern about knot on buttock with pain level reaching as high as 9. Onion Farmer used empathetic listening, words of comfort, Scripture promise, and prayer blessing to offer pt spiritual care. Pt grateful forPCV. * Elias Abraham MD - 06/26/2022 12:21 PM CDT General Medicine Daily Progress Subjective Patient seen and examined at bedside in follow up for hypoglycemia. 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 female with a PMHx significant for Dementia, DM, Hypertension Presents to the ED with a chief complaint of Hypoglycemia. HPI: 67 yr old female with past medical history significant for Hypertension, DM, Dementia, bilateral AKA presents to hospital from [place] with hypoglycemia. According to report from long-term, patient is having hypoglycemic events and last [...] question. Past Medical History: Diagnosis Date Dementia (CMS/[facility]) Diabetes mellitus (CMS/HCC) Hypertension Past Surgical History: [...] 1 tablet (100 mcg total) by mouth material chaser before breakfast 30 tablet 1 06/25/2022 NovoLOG [...] Oliverio Crump M.D. AT T: Report ID: [id number] Reading Location: [id number] CT Chest Abdomen Pelvis W Contrast Result Date: 06/25/2022 Narrative: EXAM DESCRIPTION: CT CHEST ABDOMEN PELVIS W CONTRAST REASON FOR STUDY: AMS Patient from long-term with complaint of greenish vaginal discharge and [...] Luisito Elkins M.D. RW T: Report ID: [id number] Reading Location: [place] [address] ASSESSMENT/PLAN: Principal Problem: Hypoglycemia Resolved Problems: No resolved hospital problems. Hypoglycemia POA UTI Generalised anasarca Bilateral AKA Hypertension HLD H/o Dementia Plan - secondary to lantus given at long-term - recd D50 here and blood sugars [...] 06/28/2022 4:57 PM CDT Pt transferred to [facility] with all belongings. Alert and comofrtable * Miriam Ware RN - 06/28/2022 4:38 PM CDT Pt alert and denies any pain or distress. Healed areas on coccyx, mepilex to stage 2 reddish area. All belongings with pt. Called report to SPENCER Christina at [facility] and all records with pt andall meds * Miriam Ware RN - 06/28/2022 4:00 PM CDT No pain and turned with help. Comfortable and diabetic management booklet given to pt. No distress and ready to go back to [facility]. Called her daughter she would be leaving and also notified [facility]. * Miriam Ware RN - 06/28/2022 12:32 PM CDT Pt turned and assisted with all care. Mepilex replaced to stage 2 on buttock/sacrum pt alert and cooperative. Vitals stable and pt slightly diaphoretic,blood sugars monitored and pt eating at this time. Pt made aware of transfer to [facility] today and will send all transfer [...] coccyx. Patient reported that she lives at [facility], and spends a majority of her [...] this moment due to unable to access [place] at this moment. Reviewed pertinent medical history/Labs [...] bilateral breast cancer in remission, dementia, bilateral [id number] amputations presenting to the ED c/o green vaginal discharge. EMS gave report to nurse that patient has been experiencing green vaginal discharge. Patient unaware of this discharge. When I called the long-term I spoke with her primary nurse, Nalini. [...] the 20 units of Lantus at her long-term because the long-term said said they will feed you at [...] 1 tablet (100 mcg total) by mouth material chaser before breakfast, Disp: 30 tablet, Rfl: 1 [...] nursing note reviewed. Exam conducted with a hspt tutor present. Constitutional: Appearance: Normal appearance. She is [...] tendency for uric acid stone formation. Source: [facility] [employer].Last revised 03-23-2017 COMPREHENSIVE METABOLIC PANEL - Abnormal [...] interpretation with the following outside physician, caregiver, long-term staff: senior living staff nurseNalini ED Course as of 06/25/222 Time: 06/25 1430 Comment: Nurse Philippe informed me while straight cathing patient she encountered a lot of blood. Unsure if it was coming from vagina or urethra. Will obtain pelvic. By: Flaquita Perez PA Time: 06/25 9670 Comment: Spoke with Nalini who is the nurse for the patient at her long-term. We discussed what brings the patient to the long-term. She reports patient refused to go to [facility] that is where she typically goes. Nurse [...] abdomen that is nontender to palpation. With long-term staff noticing patient's abdomen becoming more distended. [...] Admit This examination was transcribed using the [employer] voice recognition system without human supervisor waterproofing. In an effort to expedite patient care, this report has not been adjusted for typographical, grammatical, and syntax by a trained medical doctor. Flaquita Perez PA 06/25/22 6910 Cosigned by Laith Deutsch MD at 06/26/2022 [...] sandwich, provider notified. Jessenia Rivera, SPENCER 06/25/22 2566 * Bryant Wright RN - 06/25/2022 2:07 PM CDT Patient from long-term with complaint of greenish vaginal discharge and [...] * POCT glucose (06/28/2022 4:12 PM CDT) [facility] Signature Glucose, POC 166 70 - 199 mg/dL [facility] Glucose comment 1 Use This Result [facility] Blood 06/28/2022 4:12 PM CDT 06/28/2022 4:12 PM CDT Result [facility] Elias Abraham MD LAB POCT ORDERABLES - D EVICE Final Result Performing Organization Address [facility] de Phone Number [place] [address] [facility] [place] [address] * (ABNORMAL) POCT glucose (06/28/2022 11:33 AM CDT) Glucose, POC 246(H) 70 - 199 mg/dL [facility] Glucose comment 1 Use This Result [facility] Blood 06/28/2022 11:3 3 AM CDT 06/28/2022 11:33 AM CDT Elias Abraham MD LAB POCT ORDERABLES - D EVICE Final Result Performing Organization Address [facility] de Phone Number [address] [place] [address] * eGFR (06/28/2022 8:10 AM CDT) [facility] eGFR 81 mL/min/1. 73 m2 [facility] Comment: Interpretive Data Reference Interval [...] Iverson MD LAB BLOOD ORDERABLES nal Result [facility] [address] [facility] Department [place] [address] * Differential, auto (06/28/2022 8:10 AM CDT) Neutrophil abs 6.3 1.7 - 6.5 K/cumm [facility] Imm gran abs 0.1 0.0 - 0.1 K/cumm [facility] Lymphocyte abs 1.4 0.8 - 3.3 K/cumm [facility] Monocyte abs 0.5 0.2 - 0.8 K/cumm [facility] Eosinophil abs 0.1 0.0 - 0.5 K/cumm [facility] Basophil abs 0.0 0.0 - 0.1 K/cumm [facility] Neutrophil pct 75.2 % [facility] Comment: Interpretive Data Percent cell count reference ranges are not reported, since discordance with absolute values may lead to misinterpretation of CBC data. Current Interpretive Data was last revised on 2017. Imm gran pct 0.8 % [facility] Comment: Interpretive Data Percent cell count reference ranges are not reported, since discordance with absolute values may lead to misinterpretation of CBC data. Current Interpretive Data was last revised on 2017. Lymphocyte pct 16.2 % [facility] Comment: Interpretive Data Percent cell count reference ranges are not reported, since discordance with absolute values may lead to misinterpretation of CBC data. Current Interpretive Data was last revised on 2017. Monocyte pct 6.3 % [facility] Comment: Interpretive Data Percent cell count reference ranges are not reported, since discordance with absolute values may lead to misinterpretation of CBC data. Current Interpretive Data was last revised on 2017. Eosinophil pct 1.0 % [facility] Comment: Interpretive Data Percent cell count reference ranges are not reported, since discordance with absolute values may lead to misinterpretation of CBC data. Current Interpretive Data was last revised on 2017. Basophil pct 0.5 % [facility] Comment: Interpretive Data Percent cell count reference ranges are not reported, since discordance with absolute values may lead to misinterpretation of CBC data. Current Interpretive Data was last revised on 2017. Blood 06/28/2022 8:10 AM CDT 06/28/2022 8:32 AM CDT Max Iverson MD LAB BLOOD ORDERABLES nal Result [place] [address] [facility] Department [place] [address] * (ABNORMAL) CBC with auto differential (06/28/2022 8:10 AM CDT) WBC 8.4 3.8 - 9.9 K/cumm [facility] Hgb 8.4(L) 11.9 - 15.5 g/dL [facility] Hct 27.2(L) 35.6 - 45.5 % [facility] Plt 313 150 - 400 K/cumm [facility] MPV 9.6 9.1 - 12.3 fL [facility] RBC 2.97(L) 3.90 - 5.20 M/cumm [facility] MCV 91.6 81.3 - 96.4 fL [facility] MCH 28.3 27.1 - 33.3 pg [facility] MCHC 30.9(L) 32.3 - 35.7 g/dL [facility] RDW CV 19.2(H) 11.1 - 14.9 % [facility] RDW SD 62.7(H) 35.7 - 48.1 fL [facility] NRBC abs 0.00 0.00 - 0.01 K/cumm [facility] Blood 06/28/2022 8:10 AM CDT 06/28/2022 8:32 AM CDT Max Iverson MD LAB BLOOD ORDERABLES Fi nal Result Performing Organization Address [facility] Co de Phone Number [facility] [address] [place] [address] * (ABNORMAL) Basic metabolic panel (06/28/2022 8:10 AM CDT) [facility] Sodium 135 135 - 145 mmol/L [facility] Potassium, pl 3.6 3.3 - 4.9 mmol/L [facility] Chloride 97 97 - 110 mmol/L [facility] CO2 30 22 - 32 mmol/L [facility] Anion gap 8 2 - 15 mmol/L [facility] BUN 24 8 - 25 mg/dL [facility] Creatinine 0.80 0.60 - 1.10 mg/dL [facility] Glucose 152 70 - 199 mg/dL [facility] Comment: Interpretive Data Fasting glucose [...] 2022. Calcium 8.1(L) 8.5 - 10.3 mg/dL [facility] Blood 06/28/2022 8:10 AM CDT 06/28/2022 8:32 AM CDT Max Iverson MD LAB BLOOD ORDERABLES Fi nal Result Performing Organization Address [facility] de Phone Number [address] [place] [address] * POCT glucose (06/28/2022 7:41 AM CDT) Glucose, POC 178 70 - 199 mg/dL [facility] Glucose comment 1 Use This Result [facility] Blood 06/28/2022 7:41 AM CDT 06/28/2022 7:41 AM CDT Elias Abraham MD LAB POCT ORDERABLES - D EVICE Final Result Performing Organization Address City/[facility]/ZIP Co de Phone Number [address] [place] [employer] [place] [address] * POCT glucose (06/28/2022 3:48 AM CDT) Glucose, POC 174 70 - 199 mg/dL [facility] Glucose comment 1 Use This Result [facility] Blood 06/28/2022 3:48 AM CDT 06/28/2022 3:48 AM CDT Elias Abraham MD LAB POCT ORDERABLES - D EVICE Final Result Performing Organization Address City/[facility] Co de Phone Number [address] [place] [place] [address] * POCT glucose (06/27/2022 8:44 PM CDT) Glucose, POC 156 70 - 199 mg/dL [facility] Glucose comment 1 Use This Result [facility] Blood 06/27/2022 8:44 PM CDT 06/27/2022 8:44 PM CDT Elias Abraham MD LAB POCT ORDERABLES - D EVICE Final Result Performing Organization Address City/[facility] Co de Phone Number [address] [place] [place] [address] * (ABNORMAL) Iron profile w/ IBC (06/27/2022 6:39 PM CDT) Iron 33(L) 35 - 145 mcg/dL [facility] TIBC 104(L) 250 - 400 mcg/dL [facility] Transferrin saturation 32 20 - 50 % [facility] Blood 06/27/2022 6:39 PM CDT 06/27/2022 7:17 PM CDT Elias Abraham MD LAB BLOOD ORDERABLES Fi nal Result Performing Organization Address City/[facility] Co de Phone Number [address] [place] [employer] [place] [address] * Transfuse RBC (06/27/2022 4:34 PM CDT) Blood Elias Abraham MD BLOOD TRANSFUSION ORDER [place] Final Result Performing Organization Address [facility] de Phone Number [address] [place] [employer] [place] [address] * Transfuse RBC: 1 Units (06/27/2022 4:34 PM CDT) Blood Elias Abraham MD BLOOD TRANSFUSION ORDER [place] Final Result * POCT glucose (06/27/2022 4:07 PM CDT) Glucose, POC 187 70 - 199 mg/dL [facility] Glucose comment 1 Use This Result [facility] Blood 06/27/2022 4:07 PM CDT 06/27/2022 4:07 PM CDT Elias Abraham MD LAB POCT ORDERABLES - D EVICE Final Result Performing Organization Address City/[facility] Co de Phone Number [address] [place] [place] [address] * (ABNORMAL) POCT glucose (06/27/2022 11:24 AM CDT) Glucose, POC 323(H) 70 - 199 mg/dL [facility] Glucose comment 1 Use This Result [facility] Glucose comment 2 RN/MD Notified [facility] Glucose comment 3 Critical Value [facility] Blood 06/27/2022 11:2 4 AM CDT 06/27/2022 11:24 AM CDT Elias Abraham MD LAB POCT ORDERABLES - D EVICE Final Result Performing Organization Address City/[facility] Co de Phone Number [address] [place] [address] * (ABNORMAL) POCT glucose (06/27/2022 11:23 AM CDT) Glucose, POC 302(H) 70 - 199 mg/dL [facility] Blood 06/27/2022 11:2 3 AM CDT 06/27/2022 11:23 AM CDT Elias Abraham MD LAB POCT ORDERABLES - D EVICE Final Result Performing Organization Address [facility] de Phone Number [address] [place] [address] * (ABNORMAL) Differential, auto (06/27/2022 9:09 AM CDT) Pathologist [facility] Neutrophil abs 7.1(H) 1.7 - 6.5 K/cumm [facility] Imm gran abs 0.0 0.0 - 0.1 K/cumm [facility] Lymphocyte abs 1.4 0.8 - 3.3 K/cumm [facility] Monocyte abs 0.7 0.2 - 0.8 K/cumm [facility] Eosinophil abs 0.1 0.0 - 0.5 K/cumm [facility] Basophil abs 0.1 0.0 - 0.1 K/cumm [facility] Neutrophil pct 76.3 % [facility] Comment: Interpretive Data Percent cell count reference ranges are not reported, since discordance with absolute values may lead to misinterpretation of CBC data. Current Interpretive Data was last revised on 2017. Imm gran pct 0.4 % [facility] Comment: Interpretive Data Percent cell count reference ranges are not reported, since discordance with absolute values may lead to misinterpretation of CBC data. Current Interpretive Data was last revised on 2017. Lymphocyte pct 14.8 % [facility] Comment: Interpretive Data Percent cell count reference ranges are not reported, since discordance with absolute values may lead to misinterpretation of CBC data. Current Interpretive Data was last revised on 2017. Monocyte pct 7.0 % [facility] Comment: Interpretive Data Percent cell count reference ranges are not reported, since discordance with absolute values may lead to misinterpretation of CBC data. Current Interpretive Data was last revised on 2017. Eosinophil pct 1.0 % [facility] Comment: Interpretive Data Percent cell count reference ranges are not reported, since discordance with absolute values may lead to misinterpretation of CBC data. Current Interpretive Data was last revised on 2017. Basophil pct 0.5 % [facility] Comment: Interpretive Data Percent cell count reference ranges are not reported, since discordance with absolute values may lead to misinterpretation of CBC data. Current Interpretive Data was last revised on 2017. Blood 06/27/2022 9:09 AM CDT 06/27/2022 9:47 AM CDT us Elizabeth Ortez MD LAB BLOOD ORDERABLES Final Re sult [facility] [address] [facility] Department [place] [address] * (ABNORMAL) CBC with auto differential (06/27/2022 9:09 AM CDT) WBC 9.3 3.8 - 9.9 K/cumm [facility] Hgb 7.1(L) 11.9 - 15.5 g/dL [facility] Hct 22.8(L) 35.6 - 45.5 % [facility] Plt 363 150 - 400 K/cumm [facility] MPV 9.6 9.1 - 12.3 fL [facility] RBC 2.55(L) 3.90 - 5.20 M/cumm [facility] MCV 89.4 81.3 - 96.4 fL [facility] MCH 27.8 27.1 - 33.3 pg [facility] MCHC 31.1(L) 32.3 - 35.7 g/dL [facility] RDW CV 19.8(H) 11.1 - 14.9 % [facility] RDW SD 63.3(H) 35.7 - 48.1 fL [facility] NRBC abs 0.00 0.00 - 0.01 K/cumm [facility] Blood 06/27/2022 9:09 AM CDT 06/27/2022 9:47 AM CDT us Elizabeth Ortez MD LAB BLOOD ORDERABLES Final Re sult Performing Organization Address City/[facility]/ZIP Co de Phone Number [address] [place] [employer] [address] * POCT glucose (06/27/2022 8:42 AM CDT) Glucose, POC 189 70 - 199 mg/dL [facility] Glucose comment 1 Use This Result [facility] Blood 06/27/2022 8:42 AM CDT 06/27/2022 8:42 AM CDT Elias Abraham MD LAB POCT ORDERABLES - D EVICE Final Result Performing Organization Address City/[facility]/ZIP Co de Phone Number [address] [place] [address] * Prepare RBC: 1 Units (06/27/2022 8:08 AM CDT) Units requested 1 [facility] Units requested Ready [facility] Unit Number [id number] [facility] Product code [id number] [facility] Blood Expiration Date [id number] [facility] Product Blood Type (for scanning) 5100 [facility] Product Blood Type OPOS [facility] Dispense Status DISPENSED [facility] Blood 06/27/2022 8:08 AM CDT 06/27/2022 8:08 AM CDT us Elias Abraham MD BLOOD BANK PRODUCT ORDE MORALES Final Result [facility] [address] [facility] Department [place] [address] * TRANSTHORACIC ECHO (TTE) COMPLETE W DOPPLER/CF W CONTRAST (06/27/2022 7:09 AM CDT) Anatomical Region Laterality Modality Ultrasound 06/27/2022 7:09 AM CDT Narrative 06/27/2022 9:13 PM CDT ? Adult Echocardiogram + ----- + :Name: IRIS PASCUAL Study Date: 06/27/2022 ?Status: MHB ?: : ?Patient Location: [facility] [address]^[id number]^Height: 41 in ?: : ?Weight: 141 lbBP: [...] 06/27/2022 Adult Echocardiogram + ----- + :Name: ANKUR JARADJESSICA Evans Study Date: 06/27/2022Status: MHB : : Patient Location: [address]^[id number]^Height: 41 in : : : 141 lbBP: [...] LAB BLOOD ORDERABLES Fi nal Result [facility] [address] [facility] Department [place] [address] * (ABNORMAL) Differential, auto (06/27/2022 4:05 AM CDT) Neutrophil abs 6.7(H) 1.7 - 6.5 K/cumm [facility] Imm gran abs 0.1 0.0 - 0.1 K/cumm [facility] Lymphocyte abs 1.4 0.8 - 3.3 K/cumm [facility] Monocyte abs 0.7 0.2 - 0.8 K/cumm [facility] Eosinophil abs 0.1 0.0 - 0.5 K/cumm [facility] Basophil abs 0.0 0.0 - 0.1 K/cumm [facility] Neutrophil pct 75.2 % [facility] Comment: Interpretive Data Percent cell count reference ranges are not reported, since discordance with absolute values may lead to misinterpretation of CBC data. Current Interpretive Data was last revised on 2017. Imm gran pct 0.6 % [facility] Comment: Interpretive Data Percent cell count reference ranges are not reported, since discordance with absolute values may lead to misinterpretation of CBC data. Current Interpretive Data was last revised on 2017. Lymphocyte pct 15.1 % [facility] Comment: Interpretive Data Percent cell count reference ranges are not reported, since discordance with absolute values may lead to misinterpretation of CBC data. Current Interpretive Data was last revised on 2017. Monocyte pct 7.6 % [facility] Comment: Interpretive Data Percent cell count reference ranges are not reported, since discordance with absolute values may lead to misinterpretation of CBC data. Current Interpretive Data was last revised on 2017. Eosinophil pct 1.1 % [facility] Comment: Interpretive Data Percent cell count reference ranges are not reported, since discordance with absolute values may lead to misinterpretation of CBC data. Current Interpretive Data was last revised on 2017. Basophil pct 0.4 % [facility] Comment: Interpretive Data Percent cell count reference ranges are not reported, since discordance with absolute values may lead to misinterpretation of CBC data. Current Interpretive Data was last revised on 2017. Blood 06/27/2022 4:05 AM CDT 06/27/2022 4:26 AM CDT us Max Iverson MD LAB BLOOD ORDERABLES Fi nal Result [facility] [address] [facility] Department of Laboratories [place], [place] [id number] * (ABNORMAL) CBC with auto differential (06/27/2022 4:05 AM CDT) [facility] WBC 8.9 3.8 - 9.9 K/cumm [facility] Hgb 6.8(L) 11.9 - 15.5 g/dL [facility] Hct 21.7(L) 35.6 - 45.5 % [facility] Plt 334 150 - 400 K/cumm [facility] MPV 9.5 9.1 - 12.3 fL [facility] RBC 2.40(L) 3.90 - 5.20 M/cumm [facility] MCV 90.4 81.3 - 96.4 fL [facility] MCH 28.3 27.1 - 33.3 pg [facility] MCHC 31.3(L) 32.3 - 35.7 g/dL [facility] RDW CV 20.0(H) 11.1 - 14.9 % [facility] RDW SD 66.1(H) 35.7 - 48.1 fL [facility] NRBC abs 0.00 0.00 - 0.01 K/cumm [facility] Blood 06/27/2022 4:05 AM CDT 06/27/2022 4:26 AM CDT Max Iverson MD LAB BLOOD ORDERABLES nal Result [facility] [address] [facility] Department [place] [address] * (ABNORMAL) Basic metabolic panel (06/27/2022 4:05 AM CDT) [facility] Sodium 130(L) 135 - 145 mmol/L [facility] Potassium, pl 4.2 3.3 - 4.9 mmol/L [facility] Chloride 92(L) 97 - 110 mmol/L [facility] CO2 28 22 - 32 mmol/L [facility] Anion gap 10 2 - 15 mmol/L [facility] BUN 27(H) 8 - 25 mg/dL [facility] Creatinine 0.90 0.60 - 1.10 mg/dL [facility] Glucose 187 70 - 199 mg/dL [facility] Comment: Interpretive Data Fasting glucose [...] 2022. Calcium 8.1(L) 8.5 - 10.3 mg/dL [facility] Blood 06/27/2022 4:05 AM CDT 06/27/2022 4:26 AM CDT Max Iverson MD LAB BLOOD ORDERABLES Fi nal Result Performing Organization Address [facility]/ZIP Co de Phone Number [address] [place] [address] * (ABNORMAL) POCT glucose (06/27/2022 2:39 AM CDT) Glucose, POC 219(H) 70 - 199 mg/dL [facility] Glucose comment 1 RN/MD Notified [facility] Blood 06/27/2022 2:39 AM CDT 06/27/2022 2:39 AM CDT Elias Abraham MD LAB POCT ORDERABLES - D EVICE Final Result Performing Organization Address City/[facility]/ZIP Co de Phone Number [address] [place] [address] * (ABNORMAL) POCT glucose (06/26/2022 8:43 PM CDT) Glucose, POC 215(H) 70 - 199 mg/dL [facility] Glucose comment 1 RN/MD Notified [facility] Blood 06/26/2022 8:43 PM CDT 06/26/2022 8:43 PM CDT Elias Abraham MD LAB POCT ORDERABLES - D EVICE Final Result Performing Organization Address [facility] Co de Phone Number [address] [place] [address] * (ABNORMAL) Hemoglobin and hematocrit (06/26/2022 6:25 PM CDT) Hgb 7.1(L) 11.9 - 15.5 g/dL [facility] Hct 22.5(L) 35.6 - 45.5 % [facility] Blood 06/26/2022 6:25 PM CDT 06/26/2022 6:34 PM CDT Elias Abraham MD LAB BLOOD ORDERABLES Fi nal Result Performing Organization Address [facility] Co de Phone Number [address] [place] [address] * (ABNORMAL) POCT glucose (06/26/2022 4:13 PM CDT) Glucose, POC 205(H) 70 - 199 mg/dL [facility] Glucose comment 1 Use This Result [facility] Glucose comment 2 RN/MD Notified [facility] Glucose comment 3 Critical Value [facility] Blood 06/26/2022 4:13 PM CDT 06/26/2022 4:13 PM CDT Elias Abraham MD LAB POCT ORDERABLES - D EVICE Final Result Performing Organization Address [facility] Co de Phone Number [address] [place] [address] * POCT glucose (06/26/2022 11:40 AM CDT) Glucose, POC 182 70 - 199 mg/dL [facility] Glucose comment 1 Use This Result [facility] Blood 06/26/2022 11:4 0 AM CDT 06/26/2022 11:40 AM CDT Elias Abraham MD LAB POCT ORDERABLES - D EVICE Final Result [facility] [address] [place] [address] * Crossmatch (06/26/2022 9:25 AM CDT) Crossmatch Compatible [facility] Unit number for crossmatch [id number] [facility] Blood 06/26/2022 9:25 AM CDT 06/26/2022 9:43 AM CDT Elias Abraham MD LAB BLOOD BANK TEST ORD ERABLES Final Result Performing Organization Address [facility] Co de Phone Number [address] [place] [address] * Antibody screen (06/26/2022 9:25 AM CDT) Veronica, indirect, Gel Interpretation Negative ABSC [facility] Blood 06/26/2022 9:25 AM CDT 06/26/2022 9:43 AM CDT Narrative [facility] - 06/26/2022 10:25 AM CDT Has the patient had Daratumumab or Isatuximab in the past 6 months?->Unknown Elias Abraham MD LAB BLOOD BANK TEST ORD ERABLES Final Result Performing Organization Address City/[facility]/ZIP Co de Phone Number [address] [place] [place] [address] * ABO/Rh (06/26/2022 9:25 AM CDT) ABO/Rh O Positive [facility] Blood 06/26/2022 9:25 AM CDT 06/26/2022 9:43 AM CDT Narrative [facility] - 06/26/2022 10:23 AM CDT Has the patient had Daratumumab or Isatuximab in the past 6 months?->Unknown Elias Abraham MD LAB BLOOD BANK TEST ORD ERABLES Final Result Performing Organization Address [facility] Co de Phone Number [address] [place] [address] * POCT glucose (06/26/2022 8:46 AM CDT) [facility] Glucose, POC 178 70 - 199 mg/dL [facility] Glucose comment 1 Use This Result [facility] Blood 06/26/2022 8:46 AM CDT 06/26/2022 8:46 AM CDT Elias Abraham MD LAB POCT ORDERABLES - D EVICE Final Result Performing Organization Address [facility] Co de Phone Number [address] [place] [address] * (ABNORMAL) Hemoglobin and hematocrit (06/26/2022 8:10 AM CDT) [facility] Hgb 7.0(L) 11.9 - 15.5 g/dL [facility] Hct 22.9(L) 35.6 - 45.5 % [facility] Blood 06/26/2022 8:10 AM CDT 06/26/2022 8:17 AM CDT Elias Abraham MD LAB BLOOD ORDERABLES Fi nal Result Performing Organization Address [facility] Co de Phone Number [address] [place] [place] [address] * eGFR (06/26/2022 5:26 AM CDT) [facility] eGFR 81 mL/min/1. 73 m2 [facility] Comment: Interpretive Data Reference Interval [...] LAB BLOOD ORDERABLES Fi nal Result [facility] [address] [facility] Department [place] [address] * Differential, auto (06/26/2022 5:26 AM CDT) Pathologist [facility] Neutrophil abs 6.4 1.7 - 6.5 K/cumm [facility] Imm gran abs 0.0 0.0 - 0.1 K/cumm [facility] Lymphocyte abs 1.1 0.8 - 3.3 K/cumm [facility] Monocyte abs 0.6 0.2 - 0.8 K/cumm [facility] Eosinophil abs 0.1 0.0 - 0.5 K/cumm [facility] Basophil abs 0.0 0.0 - 0.1 K/cumm [facility] Neutrophil pct 77.2 % [facility] Comment: Interpretive Data Percent cell count reference ranges are not reported, since discordance with absolute values may lead to misinterpretation of CBC data. Current Interpretive Data was last revised on 2017. Imm gran pct 0.4 % [facility] Comment: Interpretive Data Percent cell count reference ranges are not reported, since discordance with absolute values may lead to misinterpretation of CBC data. Current Interpretive Data was last revised on 2017. Lymphocyte pct 13.7 % [facility] Comment: Interpretive Data Percent cell count reference ranges are not reported, since discordance with absolute values may lead to misinterpretation of CBC data. Current Interpretive Data was last revised on 2017. Monocyte pct 7.6 % [facility] Comment: Interpretive Data Percent cell count reference ranges are not reported, since discordance with absolute values may lead to misinterpretation of CBC data. Current Interpretive Data was last revised on 2017. Eosinophil pct 0.7 % [facility] Comment: Interpretive Data Percent cell count reference ranges are not reported, since discordance with absolute values may lead to misinterpretation of CBC data. Current Interpretive Data was last revised on 2017. Basophil pct 0.4 % [facility] Comment: Interpretive Data Percent cell count reference ranges are not reported, since discordance with absolute values may lead to misinterpretation of CBC data. Current Interpretive Data was last revised on 2017. Blood 06/26/2022 5:26 AM CDT 06/26/2022 6:12 AM CDT Max Iverson MD LAB BLOOD ORDERABLES Fi nal Result [facility] [address] [facility] Department [place] [address] * (ABNORMAL) CBC with auto differential (06/26/2022 5:26 AM CDT) Pathologist [facility] WBC 8.3 3.8 - 9.9 K/cumm [facility] Hgb 6.9(L) 11.9 - 15.5 g/dL [facility] Hct 22.5(L) 35.6 - 45.5 % [facility] Plt 355 150 - 400 K/cumm [facility] MPV 9.6 9.1 - 12.3 fL [facility] RBC 2.50(L) 3.90 - 5.20 M/cumm [facility] MCV 90.0 81.3 - 96.4 fL [facility] MCH 27.6 27.1 - 33.3 pg [facility] MCHC 30.7(L) 32.3 - 35.7 g/dL [facility] RDW CV 19.6(H) 11.1 - 14.9 % [facility] RDW SD 64.5(H) 35.7 - 48.1 fL [facility] NRBC abs 0.00 0.00 - 0.01 K/cumm [facility] Blood 06/26/2022 5:26 AM CDT 06/26/2022 6:12 AM CDT Max Iverson MD LAB BLOOD ORDERABLES nal Result [facility] [address] [facility] Department [place] [address] * (ABNORMAL) Basic metabolic panel (06/26/2022 5:26 AM CDT) Sodium 133(L) 135 - 145 mmol/L [facility] Potassium, pl 4.7 3.3 - 4.9 mmol/L [facility] Chloride 93(L) 97 - 110 mmol/L [facility] CO2 30 22 - 32 mmol/L [facility] Anion gap 10 2 - 15 mmol/L [facility] BUN 28(H) 8 - 25 mg/dL [facility] Creatinine 0.80 0.60 - 1.10 mg/dL [facility] Glucose 165 70 - 199 mg/dL [facility] Comment: Delta - Results Reviewed Interpretive Data [...] 2022. Calcium 8.3(L) 8.5 - 10.3 mg/dL [facility] Blood 06/26/2022 5:26 AM CDT 06/26/2022 6:12 AM CDT Max Iverson MD LAB BLOOD ORDERABLES Fi nal Result Performing Organization Address [facility] Co de Phone Number [address] [place] [address] * (ABNORMAL) POCT glucose (06/26/2022 12:15 AM CDT) Glucose, POC 217(H) 70 - 199 mg/dL [facility] Glucose comment 1 Use This Result [facility] Blood 06/26/2022 12:1 5 AM CDT 06/26/2022 12:15 AM CDT Max Iverson MD LAB POCT ORDERABLES - D EVICE Final Result Performing Organization Address [facility] Co de Phone Number [address] [place] [address] * (ABNORMAL) POCT glucose (06/25/2022 11:00 PM CDT) Glucose, POC 257(H) 70 - 199 mg/dL [facility] Glucose comment 1 Use This Result [facility] Blood 06/25/2022 11:0 0 PM CDT 06/25/2022 11:00 PM CDT Max Iverson MD LAB POCT ORDERABLES - D EVICE Final Result Performing Organization Address City/[facility] Co de Phone Number [address] [place] [address] * (ABNORMAL) POCT glucose (06/25/2022 10:32 PM CDT) Glucose, POC 222(H) 70 - 199 mg/dL [facility] Blood 06/25/2022 10:3 2 PM CDT 06/25/2022 10:32 PM CDT Max Iverson MD LAB POCT ORDERABLES - D EVICE Final Result Performing Organization Address City/[facility]/ZIP Co de Phone Number [address] [address] * (ABNORMAL) POCT glucose (06/25/2022 9:45 PM CDT) Glucose, POC 229(H) 70 - 199 mg/dL [facility] Glucose comment 1 Use This Result [facility] Blood 06/25/2022 9:45 PM CDT 06/25/2022 9:45 PM CDT Max Iverson MD LAB POCT ORDERABLES - D EVICE Final Result Performing Organization Address [facility] Co de Phone Number [address] [address] * (ABNORMAL) POCT glucose (06/25/2022 9:02 PM CDT) Glucose, POC 225(H) 70 - 199 mg/dL [facility] Blood 06/25/2022 9:02 PM CDT 06/25/2022 9:02 PM CDT us Notinfile Unknown LAB POCT ORDERABLES - DEVICE F inal Result Performing Organization Address City/[facility]/ZIP Co de Phone Number [address] [address] * (ABNORMAL) POCT glucose (06/25/2022 8:32 PM CDT) Glucose, POC 249(H) 70 - 199 mg/dL [facility] Blood 06/25/2022 8:32 PM CDT 06/25/2022 8:32 PM CDT Notinfile Unknown LAB POCT ORDERABLES - DEVICE F inal Result Performing Organization Address [facility] Co de Phone Number [address] [place] [address] * (ABNORMAL) POCT glucose (06/25/2022 8:00 PM CDT) Glucose, POC 57(L) 70 - 199 mg/dL [facility] Glucose comment 1 Use This Result [facility] Blood 06/25/2022 8:00 PM CDT 06/25/2022 8:00 PM CDT Notinfile Unknown LAB POCT ORDERABLES - DEVICE F inal Result Performing Organization Address [facility] Co de Phone Number [address] [place] [address] * Sepsis Lactate w/ Reflex (06/25/2022 7:57 PM CDT) [facility] Sepsis Lactate 1.3 0.7 - 2.0 mmol/L [facility] Blood 06/25/2022 7:57 PM CDT 06/25/2022 8:11 PM CDT Flaquita GONZALEZ LAB BLOOD ORDERABLES Final Resul t Performing Organization Address [facility] Co de Phone Number [address] [place] [address] * POCT glucose (06/25/2022 6:33 PM CDT) Glucose, POC 137 70 - 199 mg/dL [facility] Blood 06/25/2022 6:33 PM CDT 06/25/2022 6:33 PM CDT us Notinfile Unknown LAB POCT ORDERABLES - DEVICE F inal Result Performing Organization Address City/[facility]/ZIP Co de Phone Number LESLIE[address] [place] [address] * POCT glucose (06/25/2022 5:37 PM CDT) Glucose, POC 151 70 - 199 mg/dL [facility] Blood 06/25/2022 5:37 PM CDT 06/25/2022 5:37 PM CDT us Notinfile Unknown LAB POCT ORDERABLES - DEVICE F inal Result Performing Organization Address [facility] Co de Phone Number [address] [address] * CT Chest Abdomen Pelvis W Contrast (06/25/2022 5:13 PM CDT) Anatomical Region Laterality Modality Body N/A Computed Tomogra phy 06/25/2022 7:14 PM CDT Narrative 06/25/2022 7:21 PM CDT EXAM DESCRIPTION: ?? CT CHEST ABDOMEN PELVIS W CONTRAST REASON FOR STUDY: ?? AMS ?? Patient from long-term with complaint of greenish vaginal discharge and [...] D: ??06/25/2022 7:21 PM T: Report ID: [id number] Reading Location: ??[id number] Procedure Note Luisito Elkins MD - 06/25/2022 EXAM DESCRIPTION: CT CHEST ABDOMEN PELVIS W CONTRAST REASON FOR STUDY: AMS Patient from long-term with complaint of greenish vaginal discharge and [...] Luisito Elkins M.D. RW T: Report ID: [id number] Reading Location: [id number] us Flaquita GONZALEZ IMG CT PROCEDURES Final [...] D: ??06/25/2022 6:42 PM T: Report ID: [id number] Reading Location: ??[id number] Procedure Note Oliverio Crump MD - 06/25/2022 [...] Oliverio Crump M.D. AT T: Report ID: [id number] Reading Location: [id number] Flaquita GONZALEZ [facility] [place]ED[place] Final Result * (ABNORMAL) Sepsis Lactate w/ Reflex (06/25/2022 5:00 PM CDT) Sepsis Lactate 2.4(C) 0.7 - 2.0 mmol/L [facility] Comment:Critical Result call ed to and read back by spencer de león [email or web address], DATE: 2022-06-25 17:31:00 BY: [email or web address] Blood 06/25/2022 5:00 PM CDT 06/25/2022 5:03 PM CDT Flaquita GONZALEZ LAB BLOOD ORDERABLES Final Resul t [address]ES[address] [place] [address] * POCT glucose (06/25/2022 4:49 PM CDT) Pathologist [facility] Glucose, POC 169 70 - 199 mg/dL ASHLEIGH Blood 06/25/2022 4:49 PM CDT 06/25/2022 4:49 PM CDT Notinfile Unknown LAB POCT ORDERABLES - DEVICE F inal Result Performing Organization Address [facility] Co de Phone Number [address] [place] [address] * Urine culture Urine (06/25/2022 4:41 PM CDT) Pathologist [facility] Report Final Report: Less than 100,000 colonies/mL (clinically insignificant growth based on current clinical standards) ASHLEIGH Comment:Testing performed by : [facility], [address] [place]., [address] Organism (CLINICALLY INSIGNIFICANT GROWTH ASHLEIGH Urine 06/25/2022 4:41 PM CDT 06/25/2022 10:46 PM CDT Narrative ASHLEIGH - 06/27/2022 7:48 AM CDT Urine culture reflexed based upon urinalysis results. Testing performed by [facility] Microbiology Laboratory ([phone]) Flaquita GONZALEZ LAB MICROBIOLOGY - GENERAL ORDER [place] Final Result Performing Organization Address City/[facility]/ZIP Co de Phone Number [address] [employer] [place] [address] * (ABNORMAL) Urinalysis, microscopic only (06/25/2022 4:41 PM CDT) WBC, ur >50(A) 0 - 5 /HPF [facility] RBC, ur >50(A) 0 - 2 /HPF [facility] Epithelial cells, squamous, ur 6-10(A) 0 - 5 /HPF [facility] Comment:Suggestive of contam ination. Consider recollection by clean catch. Bacteria, ur 4+(A) [facility] Yeast, ur 4+(A) [facility] Culture Reflex Comment Reflex to urine culture will be performed. [facility] Urine 06/25/2022 4:41 PM CDT 06/25/2022 4:53 PM CDT us Flaquita GONZALEZ LAB URINE ORDERABLES Final Resul t [facility] [address] [facility] Department [place] [address] * (ABNORMAL) Urinalysis reflex to microscopic and culture Urine (06/25/2022 4:41 PM CDT) Color, ur Yellow Yellow [facility] Clarity, ur Turbid(A) Clear [facility] Specific gravity, ur 1.012 1.003 - 1.030 [facility] pH, urine 5.0 [facility] Protein, ur ql 1+(A) Negative [facility] Glucose, ur ql 3+(A) Negative [facility] Ketones, ur Negative Negative [facility] Bilirubin, ur Negative Negative [facility] Blood, ur 1+(A) Negative [facility] Urobilinogen, ur 4.0(A) <2.0 mg/dL [facility] Nitrite, ur Negative Negative [facility] Leukocyte esterase, ur 3+(A) Negative [facility] UA reflex comment Reflex to microscopic UA will be performed. [facility] Urine 06/25/2022 4:41 PM CDT 06/25/2022 4:53 PM CDT Narrative [facility] - 06/25/2022 4:59 PM CDT ?? Urine pH is affected by diet, medications, systemic acid-base disturbances, and renal tubular function. ??pH may affect urinary stone formation. ??For example, urine pH below 6.0 may help reduce the tendency for calcium phosphate stones and pH greater than 6.0 may reduce the tendency for uric acid stone formation. Source: [place] [facility] [employer]. Last revised 03-23-2017 Flaquita GONZALEZ LAB MICROBIOLOGY - GENERAL ORDER [place] Final Result Performing Organization Address City/[facility]/ZIP Co de Phone Number ASHLEIGH [address] [facility] [place] [address] * eGFR (06/25/2022 4:06 PM CDT) eGFR [...] ORDERABLES Final Resul t Performing Organization Address City/[facility]/ZIP Co de Phone Number ASHLEIGH [address] [facility] [place] [address] * (ABNORMAL) Differential, auto (06/25/2022 4:06 PM CDT) Pathologist [facility] Neutrophil abs 7.5(H) 1.7 - 6.5 K/cumm [facility] Imm gran abs 0.1 0.0 - 0.1 K/cumm [facility] Lymphocyte abs 1.3 0.8 - 3.3 K/cumm [facility] Monocyte abs 0.9(H) 0.2 - 0.8 K/cumm [facility] Eosinophil abs 0.1 0.0 - 0.5 K/cumm [facility] Basophil abs 0.0 0.0 - 0.1 K/cumm [facility] Neutrophil pct 75.5 % [facility] Comment: Interpretive Data Percent cell count reference ranges are not reported, since discordance with absolute values may lead to misinterpretation of CBC data. Current Interpretive Data was last revised on 2017. Imm gran pct 1.0 % [facility] Comment: Interpretive Data Percent cell count reference ranges are not reported, since discordance with absolute values may lead to misinterpretation of CBC data. Current Interpretive Data was last revised on 2017. Lymphocyte pct 13.6 % [facility] Comment: Interpretive Data Percent cell count reference ranges are not reported, since discordance with absolute values may lead to misinterpretation of CBC data. Current Interpretive Data was last revised on 2017. Monocyte pct 8.6 % [facility] Comment: Interpretive Data Percent cell count reference ranges are not reported, since discordance with absolute values may lead to misinterpretation of CBC data. Current Interpretive Data was last revised on 2017. Eosinophil pct 0.9 % [facility] Comment: Interpretive Data Percent cell count reference ranges are not reported, since discordance with absolute values may lead to misinterpretation of CBC data. Current Interpretive Data was last revised on 2017. Basophil pct 0.4 % [facility] Comment: Interpretive Data Percent cell count reference ranges are not reported, since discordance with absolute values may lead to misinterpretation of CBC data. Current Interpretive Data was last revised on 2017. Blood 06/25/2022 4:06 PM CDT 06/25/2022 4:08 PM CDT Flaquita GONZALEZ LAB BLOOD ORDERABLES Final Resul t Performing Organization Address [facility] de Phone Number ASHLEIGH [address] [employer] [address] * (ABNORMAL) CBC with auto differential (06/25/2022 4:06 PM CDT) Pathologist [facility] WBC 9.9 3.8 - 9.9 K/cumm [facility] Hgb 7.0(L) 11.9 - 15.5 g/dL [facility] Hct 23.4(L) 35.6 - 45.5 % [facility] Plt 358 150 - 400 K/cumm [facility] MPV 9.2 9.1 - 12.3 fL [facility] RBC 2.54(L) 3.90 - 5.20 M/cumm [facility] MCV 92.1 81.3 - 96.4 fL [facility] MCH 27.6 27.1 - 33.3 pg [facility] MCHC 29.9(L) 32.3 - 35.7 g/dL [facility] RDW CV 19.9(H) 11.1 - 14.9 % [facility] RDW SD 65.6(H) 35.7 - 48.1 fL [facility] NRBC abs 0.00 0.00 - 0.01 K/cumm [facility] Blood 06/25/2022 4:06 PM CDT 06/25/2022 4:08 PM CDT Flaquita GONZALEZ LAB BLOOD ORDERABLES Final Resul t Performing Organization Address [facility]/ZIP Co de Phone Number [address] [employer] [place] [address] * (ABNORMAL) Comprehensive metabolic panel (06/25/2022 4:06 PM CDT) Pathologist [facility] Sodium 134(L) 135 - 145 mmol/L [facility] Potassium, pl 3.9 3.3 - 4.9 mmol/L [facility] Chloride 95(L) 97 - 110 mmol/L [facility] CO2 31 22 - 32 mmol/L [facility] Anion gap 8 2 - 15 mmol/L [facility] BUN 29(H) 8 - 25 mg/dL [facility] Creatinine 0.90 0.60 - 1.10 mg/dL [facility] Glucose 54(C) 70 - 199 mg/dL [facility] Comment: Critical Result called to and read back by [email or web address], DATE: 2022-06-25 16:43:48 BY: [email or web address] Interpretive Data Fasting glucose >/= 126 mg/dl [...] 2022. Calcium 8.2(L) 8.5 - 10.3 mg/dL [facility] Bilirubin, total 0.5 0.1 - 1.2 mg/dL [facility] Protein, pl 7.7 6.5 - 8.5 g/dL [facility] Albumin 2.7(L) 3.5 - 5.0 g/dL [facility] Alk phos 32(L) 40 - 130 Units/L [facility] ALT 6(L) 7 - 45 Units/L [facility] AST 16 10 - 45 Units/L [facility] Blood 06/25/2022 4:06 PM CDT 06/25/2022 4:08 PM CDT us Flaquita GONZALEZ LAB BLOOD ORDERABLES Final Resul t ASHLEIGH [address] [facility] Department [place] [address] * (ABNORMAL) POCT glucose (06/25/2022 4:04 PM CDT) [facility] Glucose, POC 55(C) 70 - 199 mg/dL [facility] Blood 06/25/2022 4:04 PM CDT 06/25/2022 4:04 PM CDT us Notinfile Unknown LAB POCT ORDERABLES - DEVICE F inal Result Performing Organization Address [facility] Co de Phone Number LESLIE[address] [address] * (ABNORMAL) POCT glucose (06/25/2022 3:32 PM CDT) Glucose, POC 62(L) 70 - 199 mg/dL [facility] Glucose comment 1 Use This Result [facility] Blood 06/25/2022 3:32 PM CDT 06/25/2022 3:32 PM CDT us Notinfile Unknown LAB POCT ORDERABLES - DEVICE F inal Result Performing Organization Address [facility] de Phone Number [address] [address] * (ABNORMAL) POCT glucose (06/25/2022 3:21 PM CDT) Glucose, POC 64(L) 70 - 199 mg/dL [facility] Glucose comment 1 Use This Result [facility] Blood 06/25/2022 3:21 PM CDT 06/25/2022 3:21 PM CDT us Notinfile Unknown LAB POCT ORDERABLES - DEVICE F inal Result Performing Organization Address [facility] Co de Phone Number [address] [address] * POCT glucose (06/25/2022 3:00 PM CDT) Glucose, POC 80 70 - 199 mg/dL [facility] Blood 06/25/2022 3:00 PM CDT 06/25/2022 3:00 PM CDT us Notinfile Unknown LAB POCT ORDERABLES - DEVICE F inal Result Performing Organization Address [facility] Co de Phone Number ASHLEIGH [address] [place] [address] * (ABNORMAL) POCT glucose (06/25/2022 2:57 PM CDT) [facility] Glucose, POC 47(C) 70 - 199 mg/dL [facility] Glucose comment 1 Will Repeat Test [facility] Glucose comment 2 Use This Result [facility] Glucose comment 3 RN/MD Notified [facility] Blood 06/25/2022 2:57 PM CDT 06/25/2022 2:57 PM CDT Notinfile Unknown LAB POCT ORDERABLES - DEVICE F inal Result Performing Organization Address [facility] Co de Phone Number ASHLEIGH [address] [address] documented in this encounter Visit Diagnoses Diagnosis [...] scheduled, First dose (after last reorder) on [place] 06/26/22 at 0900, Indications: Urinary Tract/Genitourinary InfectionIndications:Urinary [...] UNABLE to swallow/take PO glucose/juice., Starting on [place] 06/26/22 at 0806, After treatment for hypoglycemia, [...] glucose less than 70 mg/dL, Starting on [place] 06/26/22 at 0806, If patient is alert [...] Call MD for each episode of hypoglycemia. PRINT COLOR OPERATOR STATES GLUTOSE-15 CONTAINS GLUCOSE 40% W/W (50% W/V), Indications: hypoglycemic disorderIndications:hypoglycemi c disorder enoxaparin (LOVENOX) syringe 30 mg 30 mg, subcutaneous, Daily (for enoxaparin), First dose on 06/25/22 at 2345, Indications: Deep Vein Thrombosis Prevention, On hold since [place] 06/26/2022 at 0806 until manually unheldIndications:Deep Vein [...] 40 mg, oral, Daily, First dose on [place] 06/26/22 at 1330 Given 06/28/2022 9:18 AM CDT 40 mg Given 06/27/2022 8:57 AM CDT 40 mg Given 06/26/2022 1:27 PM CDT 40 mg gabapentin (NEURONTIN) capsule 300 mg 300 mg, oral, 3 times daily, First dose on [place] 06/26/22 at 0900 Given 06/28/2022 9:18 AM [...] Kita Elam, SPENCER) 0857 (Given - Provider: eCcilia Zepeda RN)162 (Given - Provider: Lesa Arevalo [...] Sabrina Prieto RN) 0918 (Given - Provider: Mriiam Ware, SPENCER) sodium chloride 0.9% flush 0.5-20 [...] Fever, Pain 2101 (Given - Provider: Kita lEam RN) 0938 (Given - Provider: Miriam Ware, [...] Call MD for each episode of hypoglycemia. PRINT COLOR OPERATOR STATES GLUTOSE-15 CONTAINS GLUCOSE 40% W/W (50% [...] Call MD for each episode of hypoglycemia. PRINT COLOR OPERATOR STATES GLUTOSE-15 CONTAINS GLUCOSE 40% W/W (50% [...] 06/28/2022 documented in this encounter Care Teams Sys Dir Relationship Specialty Start Date End Date Zeke Puente MD [address] [place] [address] PCP - General 12/02/18 Damon Swanson DO [address] [place] [address] Medical Oncologist/Gas Main Fitter Helper Hematology and Oncology 10/25/17 Karl Smith Jr., MD [address] [place] [address] Surgeon General Surgery 11/07/19 Arley Peña MD [address] [place] [address] Surgeon General Surgery 06/26/20 documented as of this encounter
--- OUTSIDE RECORDS SUMMARY | 2024-02-27 03:13 | XMS_ITS | Referral Summary ---
Author Organization [facility] Address [address] [place] [address] Phone Care Team Providers Care Admitted Attorneys Name Role Phone Dmaon SwansonTesha DO Unavailable Zeke Puente MD Primary Care Provider [phone] Sarah Baldwin MD, Karl Romero Unavailable [phone] Arley Peña MD Unavailable [phone] Allergies Active Allergy Reactions Criticality Noted Date Comments Codeine Phosphate Nausea & Vomiting Low 10/08/2012 Medications amLODIPine (NORVASC) 10 mg tablet Take 1 tablet (10 mg total) by mouth daily Active atorvastatin (LIPITOR) 40 mg tablet Take 1 tablet (40 mg total) by mouth daily Active levothyroxine (SYNTHROID) 100 mcg tablet Take 1 tablet (100 mcg total) by mouth electrical 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 ??Minority populations were underrepresented and children were not included. ?? (Diabetes Care 31:3970-6871, 2007). ??The eAG is not equivalent to a fasting glucose. Blood specimen (specimen) 06/18/2020 5:43 AM CDT 06/18/2020 6:23 AM CDT Summer Anguiano MD LAB BLOOD ORDERABLES Final Result Performing Organization Address [facility]/State/ZIP Co de Phone Number [facility] [address] [place] [address] * Screening Mammogram Bilateral W Zac (12/26/2016 [...] by: Edwar Deng M.D., md/:12/26/2016 11:34:53 ?? Informatics Pharmacist: Layne Roger)(M), [facility] letter sent: Normal Exam ?? Reading location: [facility] BI-RADS: 2 Benign [EOD] Narrative 12/26/2016 [...] mammogram, 11/07/2014 mammogram, and 10/30/2013 mammogram - [facility]. ?? BREAST TISSUE: The tissue of [...] 12/18/2015 mammogram,11/07/2014 mammogram, and 10/30/2013 mammogram - [facility]. BREAST TISSUE: The tissue of both [...] signed by: Edwar Deng M.D., md/:12/26/2016 11:34:53 Informatics Pharmacist: Layne Iniguez RT (R)(M), [facility] letter sent: Normal Exam Reading location: 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 ADVANCE DIRECTIVE 09/04/2023 2:51 PM POLST - Phys Order for PT Preferences ADVANCE DIRECTIVE 02/28/2019 12:00 AM POW ER OF MARINE GEOLOGIST FINANCIAL/MEDICAL * Full Code (Latest Code Status [...] 12:51 AM 11/20/2019 10:35 PM Care Teams Admitted Attorneys Relationship Specialty Start Date End Date Zeke Puente MD [address] [place] [address] PCP - General 12/02/18 Damon Swanson DO [address] [place] [address] Medical Oncologist/Technical Service Specialist Hematology and Oncology 10/25/17 Karl Smith Jr., MD [address] [place] [address] Surgeon General Surgery 11/07/19 Arley Peña MD [address] [place] [address] Surgeon General Surgery 06/26/20
--- OUTSIDE RECORDS SUMMARY | 2024-02-27 03:13 | XMS_ITS | Encounter Summary ---
Author Organization [facility] Address [address] [facility] [place] [address] Care Team Providers Care Scallop Cutter Machine Name Role Phone Damon Swanson DO Unavailable [phone] Zeke Puente MD Primary Care Provider Sarah Baldwin MD, Karl Romero Unavailable Arley Peña MD Unavailable [phone] Encounter Details Date Type Department Care Team (Late st Contact Info) Description 12/08/2021 Orders Only [facility] Cardiology [address] [facility] [address] [place] [address] Beto Ortez MD [address] [address] Social History Tobacco Use Types [...] often do you attend jehovah's witness or gnosticist serv ices? 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 Gender Identity Not on file Sexual Orientation Not on file documented as of this encounter Plan of Treatment Not on file documented as of this encounter Procedures Procedure Name Priority Date/Time Associated Diagnosis Comments CARDIOLOGY DOCUMENT SCAN Routine 12/08/2021 documented in this encounter Results * Cardiology Document Scan (12/08/2021) Anatomical Region Laterality Modality Other [facility] Eliezer Ortez MD CV CARDIAC SERVICES PRO CEDURES Final Result documented in this encounter Visit Diagnoses Not on filedocumented in this encounter Care Teams Scallop Cutter Machine Relationship Specialty Start Date End Date Zeke Puente MD [address] [place] [address] PCP - General 12/02/18 Damon Swanson DO [address] [place] [address] Medical Oncologist/Pi/Senior Research Associate Hematology and Oncology 10/25/17 Karl Smith Jr., MD [address] [place] [id number] Surgeon General Surgery 11/07/19 Arley Peña MD [address] [place] [id number] Surgeon General Surgery 06/26/20 documented as of this encounter
--- OUTSIDE RECORDS SUMMARY | 2024-02-27 03:13 | XMS_ITS | Encounter Summary ---
Author Organization [facility] Address [address] [facility] [address] [place] [address] Care Team Providers Care Rn Interventional Name Role Phone Damon Swanson DO Unavailable [phone] Zeke Puente MD Primary Care Provider Sarah Baldwin MD, Karl Romero Unavailable Arley Peña MD Unavailable [phone] Encounter Details Date Type Department Care Team (Late st Contact Info) Description 12/06/2021 Orders Only [facility] Cardiology [address] [place] [address] Bud Mustafa MD [address] [facility] [address] [facility] [address] [place], [place] [id number] Social History Tobacco Use Types Packs/Day Years [...] declined 06/17/2020 How often do you attend scientology or jew serv ices? 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
--- OUTSIDE RECORDS SUMMARY | 2024-02-27 03:13 | XMS_ITS | Clinical Summary ---
Author Organization [facility] Address [address] [place] [address] Care Team Providers Care Clinical Pharmacy Manager Name Role Phone Unavailable Primary Care Provider Unavailabl e Source Comments [facility],non-owned Affiliates and Associated Physician Practices is amultiple site organization consisting of ambulatory clinics and hospital sitesin [place], [place], [place] and [place]. This disclosure is being madepursuant to the Care Everywhere program and may not contain all information available regarding this patient. Last updated 17.[facility] [employer] Social History Tobacco Use Types Packs/Day Years [...]
--- OUTSIDE RECORDS SUMMARY | 2024-02-27 03:13 | XMS_ITS | Encounter Summary ---
Author Organization [facility] Healthcare Address [address] [place] [address] Care Team Providers Care Salt Machine Operator Name Role Phone Damon Swanson DO Unavailable [phone] Zeke Puente MD Primary Care Provider [phone] Sarah Baldwin MD, Karl Romero Unavailable [phone] Arley Peña MD Unavailable [phone] Encounter Details Date Type Department Care Team (Latest Contact Info) Description 06/26/2020 3:27 PM CDT - 06/26/2020 11:59 PM CDT Hospital Encounter [facility] [id number] [place], [place] [id number] Discharge Disposition: Discharge to home or self [...] declined 06/17/2020 How often do you attend uatsdin or alevism serv ices? 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 Gender Identity Not on file Sexual Orientation Not on file documented as of this encounter Medications at Time of Discharge amLODIPine (NORVASC) 10 mg tablet Take 1 tablet (10 mg total) by mouth daily atorvastatin (LIPITOR) 40 mg tablet Take 1 tablet (40 mg total) by mouth daily levothyroxine (SYNTHROID) 100 mcg tablet Take 1 tablet (100 mcg total) by mouth cnc milling machine operator before breakfast 30 tablet 1 06/25/2020 [...] documented as of this encounter Care Teams Salt Machine Operator Relationship Specialty Start Date End Date Zeke Puente MD [address] [place] [address] PCP - General 12/02/18 Damon Swanson DO [address] [place] [id number] Medical Oncologist/Dental Ceramist Helper Hematology and Oncology 10/25/17 Karl Smith Jr., MD [address] [place] [address] Surgeon General Surgery 11/07/19 Arley Peña MD [address] [place] [address] Surgeon General Surgery 06/26/20 documented as of this encounter
--- OUTSIDE RECORDS SUMMARY | 2024-02-27 03:13 | XMS_ITS | Patient Health Summary ---
Author Organization [facility] Address [address] [place] [address] Care Team Providers Care Cardiology Clinical Consultant Name Role Phone Unavailable Primary Care Provider Unavailabl e Note from [facility],non-owned Affiliates and Associated Physician Practices is amultiple site organization consisting of ambulatory clinics and hospital sitesin [place], [place], [place] and [place]. This disclosure is being madepursuant to the Care Everywhere program and may not contain all information available regarding this patient. Last updated 17.[facility] Social History Tobacco Use Types Packs/Day Years [...] POINT OF CARE ORDERABLES [facility] [address] [address]
--- OUTSIDE RECORDS SUMMARY | 2024-02-27 03:14 | XMS_ITS | Encounter Summary ---
Author Organization [facility] Healthcare Address [address] [place] [address] Care Team Providers Care Surgical Dressing Maker Name Role Phone Damon Swanson DO Unavailable Zeke Puente MD Primary Care Provider Sarah Baldwin MD, Karl N. Unavailable Arley Peña MD Unavailable [phone] Reason for Visit * Reason Comments Leg Pain Encounter Details Date Type Department Care Team (Latest Contact Info) Description 06/16/2020 12:29 PM CDT - 06/26/2020 4:07 PM CDT Hospital Encounter [id number] [place] [id number] Preeti Barr MD [address] [place] [address] Tanisha Bundy MD [facility] [place] [address] Summer Anguiano MD [address] [place] [address] Harlan Salamanca MD [address] [place] [address] Reagan Salinas MD [address] [facility] [place] [address] Other acute osteomyelitis of left foot ([facility]) (Primary Dx); Encephalopathy acute; Hyperlipidemia, unspecified hyperlipidemia type; Hypertension, unspecified type; Type 2 diabetes mellitus with other specified complication, unspecified whether [place] [facility] insulin use ([facility]); PVD (peripheral vascular disease) ([facility]); Gastrointestinal hemorrhage, unspecified gastrointestinal hemorrhage [...] declined 06/17/2020 How often do you attend religious or gnosticist serv ices? Patient declined 06/17/2020 Do you belong to any clubs o r organizations such as religious groups, unions, fraternal or athletic groups, or [...] on file Legal Sex Female 12:30 PM BIT TRIPOLER Gender Identity Not on file Sexual Orientation [...] OTHER SPECIFIED COMPLICATION Perforation of intestine (nontraumatic) ([facility]) - PERFORATION OF INTESTINE (NONTRAUMATIC) Do not resuscitate - DO NOT RESUSCITATE Other acute osteomyelitis, left ankle and foot ([facility]) - OTHER ACUTE OSTEOMYELITIS, LEFT ANKLE AND FOOT Acute posthemorrhagic anemia - ACUTE POSTHEMORRHAGIC ANEMIA Moderate protein-calorie malnutrition (CMS/HCC) ([facility]) - MODERATE PROTEIN-CALORIE MALNUTRITION Encephalopathy, unspecified - ENCEPHALOPATHY, UNSPECIFIED Pericardial effusion (noninflammatory) - PERICARDIAL EFFUSION (NONINFLAMMATORY) 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[facility]) - CELIAC ARTERY COMPRESSION SYNDROME Celiac artery compression syndrome Vascular disorder of intestine, unspecified ([facility]) - VASCULAR DISORDER OF INTESTINE, UNSPECIFIED Hematemesis - HEMATEMESIS Type 2 diabetes mellitus with diabetic peripheral angiopathy without gangrene ([facility]) - TYPE 2 DIABETES MELLITUS WITH DIABETIC PERIPHERAL ANGIOPATHY WITHOUT GANGRENE Hypothyroidism, unspecified - HYPOTHYROIDISM, UNSPECIFIED Hyperlipidemia, unspecified - HYPERLIPIDEMIA, UNSPECIFIED Hypokalemia - HYPOKALEMIA Hypopotassemia Unspecified dementia without behavioral disturbance - UNSPECIFIED DEMENTIA WITHOUT BEHAVIORAL DISTURBANCE Essential (primary) hypertension - ESSENTIAL (PRIMARY) HYPERTENSION Unspecified essential hypertension Unspecified atherosclerosis of [place] arteries of extremities, right leg (HCC) - UNSPECIFIED ATHEROSCLEROSIS OF WHITE EARTH ARTERIES OF EXTREMITIES, RIGHT LEG Ventral hernia [...] me last fall and had a left ljuhv-agx-qxhv amputation last Monday. Subsequently, she was doing [...] left AK stump. Job ID/VF Job ID: [id number] documented in this encounter Medications at Time of Discharge amLODIPine (NORVASC) 10 mg tablet Take 1 tablet (10 mg total) by mouth daily atorvastatin (LIPITOR) 40 mg tablet Take 1 tablet (40 mg total) by mouth daily levothyroxine (SYNTHROID) 100 mcg tablet Take 1 tablet (100 mcg total) by mouth derrick helper before breakfast 30 tablet 1 06/25/2020 gabapentin [...] 1 tablet (100 mcg total) by mouth derrick helper before breakfast 30 tablet 1 06/25/2020 oxyCODONE [...] Disposition Code Departure Means Destination Discharge to [facility] documented in this encounter Progress Notes [...] Continue with current plan Recommendation/Plan OT Recommendation Fdc Facility Education: Patient has been educated on [...] 06/24/20 Goal Start Date End Date OT [facility] 1 06/24/20 -- Goal Details: Pt will complete toileting tasks and toilet transfer moderate assist Goal Start Date End Date OT [facility] 2 06/24/20 -- Goal Details: Pt will complete grooming tasks at sink moderate assist Goal Start Date End Date OT [facility] 3 06/24/20 -- Goal Details: Pt will complete UB dressing minimal assist Goal Start Date End Date OT [facility] 4 06/24/20 -- Goal Details: Pt [...] shares [facility]. Patient engaged in conversation about holiday traditions and requested nichole music. Pain Assessment: Pre Treatment Pain Score (0-10): 0/10 Post Treatment Pain Score (0-10): 0/10 Pain Location: not applicable Pain Interventions: not applicable Clinical Progression: not assessed / not applicable Patient's Musical History: Instruments Played: no hx / wanted to learn violin Vocal Experience: hx in religious choir / enjoys singing Patient's Musical Preferences: Decade(s): Genres: easy listening, popular, [place] music / no jazz Artists/Groups: none stated Psychosocial History: Family: one daughter, three sons, several grandchildren and great-grandchildren (ages 11 months - 11 years) 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) Leisure: watching television, coloring Advent/Spiritual: [employer] OBJECTIVE: Observed Behavior State: easy to [...] / therapeutic singing) Song 4: Deck [place] (therapeutic singing / song discussion) Song 5: [...] anxiety PLAN OF CARE: Multi-Disciplinary Problems (from [place] [facility]) Active Problems Problem: [facility] Start Date: 06/24/20 Goal Start Date End Date [facility] 1 06/24/20 -- Goal Details: Patient will increase pulmonary function by completing various exercises with SPO2 at=/> 92% or by increasing SPO2 by =/>1% in at least one music therapy session prior to discharge Goal Start Date End Date [facility] 2 06/24/20 -- Goal Details: Patient will [...] 7 Units 7 Units subcutaneous QAM DavidA. Salamanac MD 7 Units at 06/26/20 0853 ??? [...] Soft Diet effective now Question Answer Comment ([facility]) Diet type GI Diets GI: Esophageal Soft 06/23/20 1553 06/23/20 1120 Oral Nutrition Supplements Select Supplement: Glucerna Shake - [place] 3 times daily Question: Select Supplement: Answer: Glucerna Shake - [place] 06/23/20 1119 Anthropometrics Weight: 76.7 kg (169 [...] of Weight Used for Estimated Protein : [place] Protein Needs Based on g/k.5 Total Protein [...] PT. PT completed session w/ assistance of compliance review specialist to maximize safety with all functional [...] supported;Unilateral upper extremity supported;Feet unsupported (pt is BRNEDON AKA so no LE support feasible on [...] Mobility 1 Bed Mobility Comments 1 rolls BRNEDON with mod assist x1 + bedrail in [...] this the discharge summary Recommendation/Plan PT Recommendation/Plan Fdc Facility Treatment/Interventions Balance Training;Bed mobility;Endurance training;Equipment eval/education;Functional [...] (from Physical Therapy) Active Problems Problem: [facility] Start Date: 06/24/20 Goal Start Date End Date PT [facility] 1 06/24/20 -- Goal Details: Pt will roll BRENDON with minimum assist and BRENDON bedrails for trunk support. Goal Start Date End Date PT [facility] 2 06/24/20 -- Goal Details: Pt will supine<-->sit EOB with minimum to mod assist x1 + bedrail for trunk support. Goal Start Date End Date PT [facility] 3 06/24/20 -- Goal Details: Pt will sit EOB x10 minutes w/ SBA to CGA x1 w/ BRENDON UE support for safety. Goal Start Date End Date PT [facility] 4 06/24/20 -- Goal Details: Pt will perform lateral scooting (side to side) on EOB with minimum to mod assist x1 (to strengthen hips and core in preparation for transfer training via slide board or posterior/anterior scooting bed<-->WC). Goal Start Date End Date PT [facility] 5 06/24/20 -- Goal Details: [...] QAM DavidA. Salamanca MD 7 Units at 04/15/21 0824 ??? [...] Problem: Gastrointestinal hemorrhage Active Problems: Moderate malnutrition ([facility]) PVD (peripheral vascular disease) ([facility]) Anemia Hypothyroidism Hyperlipidemia Dementia (CMS/HCC) [...] with Lovenox stable for discharge. D/w social science instructor- discharge planning underway Reagan Salinas MD 06/25/2020 [...] Continue with current plan Recommendation/Plan OT Recommendation Fdc Facility Education: Patient has been educated on [...] 06/24/20 Goal Start Date End Date OT [facility] 1 06/24/20 -- Goal Details: Pt will complete toileting tasks and toilet transfer moderate assist Goal Start Date End Date [facility] 2 06/24/20 -- Goal Details: Pt will complete grooming tasks at sink moderate assist Goal Start Date End Date [facility] 3 06/24/20 -- Goal Details: Pt will complete UB dressing minimal assist Goal Start Date End Date [facility] 4 06/24/20 -- Goal Details: Pt will [...] a family friend. 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 Hospice staff completed bathing 2x/week. kitchen and counter worker 4 hours day Monday-Monday that completed [...] this the discharge summary Recommendation/Plan OT Recommendation Fdc Facility OT Frequency 3-5x/wk Treatment/Interventions ADL/IADL retraining;Balance Training;Endurance training;Functional activity;Functional mobility training;Functional transfer training;Parent/caregiver training and education;Strengthening;Therapeutic activity;Therapeutic exercise OT Equipment Recommended (will continue to assess) Progress Progressing toward goals OT Evaluation Complete Yes Multi-Disciplinary Problems (from Occupational Therapy) Active Problems Problem: [place] [facility] Start Date: 06/24/20 Goal Start Date End Date [facility] 1 06/24/20 -- Goal Details: Pt will complete toileting tasks and toilet transfer moderate assist Goal Start Date End Date [facility] 2 06/24/20 -- Goal Details: Pt will complete grooming tasks at sink moderate assist Goal Start Date End Date [facility] 3 06/24/20 -- Goal Details: Pt will complete UB dressing minimal assist Goal Start Date End Date [facility] 4 06/24/20 -- Goal Details: Pt will [...] a family friend. 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 Hospice staff completed bathing 2x/week. kitchen and counter worker 4 hours day Monday-Monday that completed [...] safely transfer back to bed when needed. Seal Mixing Operator was also contacted and will be available to assist nursing as able with transfers and can further guide senior staff accountant with pt safety. Pain Assessment Pain Assessment [...] this the discharge summary Recommendation/Plan PT Recommendation/Plan Fdc Facility PT Frequency 3-5x/wk Treatment/Interventions Balance Training;Bed [...] (from Physical Therapy) Active Problems Problem: PT [facility] Start Date: 06/24/20 Goal Start Date End Date PT [facility] 1 06/24/20 -- Goal Details: Pt will roll BRENDON with minimum assist and BRENDON bedrails for trunk support. Goal Start Date End Date PT [facility] 2 06/24/20 -- Goal Details: Pt will supine<-->sit EOB with minimum to mod assist x1 + bedrail for trunk support. Goal Start Date End Date PT [facility] 3 06/24/20 -- Goal Details: Pt will sit EOB x10 minutes w/ SBA to CGA x1 w/ BRENDON UE support for safety. Goal Start Date End Date [facility] 4 06/24/20 -- Goal Details: Pt will perform lateral scooting (side to side) on EOB with minimum to mod assist x1 (to strengthen hips and core in preparation for transfer training via slide board or posterior/anterior scooting bed<-->WC). Goal Start Date End Date [facility] 5 06/24/20 -- Goal Details: Pt will [...] response to music this date. Patient at [facility] secondary to osteomyelitis in leftLE. 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) Leisure: watching television Advent/Spiritual: [employer] OBJECTIVE: Observed Behavior State: easy to [...] anxiety PLAN OF CARE: Multi-Disciplinary Problems (from [place] [facility]) Active Problems Problem: [facility] Start Date: 06/24/20 Goal Start Date End Date [facility] 1 06/24/20 -- Goal Details: Patient will increase pulmonary function by completing various exercises with SPO2 at=/> 92% or by increasing SPO2 by =/>1% in at least one music therapy session prior to discharge Goal Start Date End Date [facility] 2 06/24/20 -- Goal Details: Patient will [...] 4.5 g 4.5 g intravenous Q6H KASIE Harlna Salamanca MD 200 mL/hr at 06/23/208 4.5 [...] Nutrition Supplements Select Supplement: Glucerna Shake - [place] 3 times daily Question: Select Supplement: Answer: Glucerna Shake - [place] 06/23/20 1119 06/22/20 1333 Adult Diet Full Liquid Diet effective now Question: ([facility]) Diet type Answer: Full Liquid 06/22/20 [...] of Weight Used for Estimated Protein : [place] Protein Needs Based on g/k.5 Total Protein [...] OK to Discharge No * Lesa Crook, [facility] - 06/22/2020 1:37 PM CDT Pharmacy Note [...] Anguiano MD 40 mg at 06/22/20925 ??? ahuesiruwqlc-kqjwbcgfxz-wthuitsl (ZOSYN) 3.375 gram/50 mL in dextrose (premix) [...] have been put in place by the [facility] system to preserve limited supplies. World[employer] Heparin shortage has also impacted choices for VTE prophylaxis and treatment. * Arley Peña MD - 06/22/2020 12:00 AM CDT A 65-year-old black female who is diabetic has peripheral vascular disease and history of COVID last year at which time I had done an bdjxl-qcq-grvk amputation on the right. She had come to this hospital less than a week ago with ischemic rest pain and I have done a left reaws-fvo-sodv amputation about 3 days ago. I was [...] feedings probably tomorrow. Job ID/VF Job ID: [id number] * Spenser Ascencio MD - 06/21/2020 10:06 [...] held, stat H&H obtained, and Protonix ordered. caustic cresylate shift superintendent RN notified Silvio of H&H results, and stated we were to call an CLOCK AND WATCH ASSEMBLER and new orders would be put in to transferthe pt to the ICU. CLOCK AND WATCH ASSEMBLER team arrived, pt assessed, and transferred to [...] of Weight Used for Estimated Protein : [place] Protein Needs Based on g/k.5 Total Protein [...] is eating well and was eating well BECK TENDER. Pt states she eats softer foods at [...] pain. Discussed with the patient's daughter at [phone] She reports the patient is not ambulatory. [...] Carbohydrate Diet effective now Question Answer Comment ([facility]) Diet type Modified Consistency Modified Consistency: Pureed Diabetic: Consistent Carbohydrate 06/17/20 1224 06/17/20 1102 Oral Nutrition Supplements Select Supplement: Glucerna Shake - Any Flavor 3 times daily Question: Select Supplement: Answer: Glucerna Shake - Any Flavor 06/17/20 1101 ASPEN Malnutrition Assessment: Nutrition Focused Physical Exam Notes: Subcutaneous Fat Loss Orbital Region - Surrounding the Eye: Somewhat hollow look Muscle Loss [place] - Temporalis Muscle: Can see/feel well-defined [...] of Weight Used for Estimated Protein : [place] Protein Needs Based on g/k.5 Total Protein [...] to help answer questions. Pt was onhospice BECK TENDER. Did not observe any wasting on NFPE. [...] she was back at [facility] in November of 2019 with a right [...] follow up further. Job ID/VF Job ID: [id number] * Lisa Pradhan MD - 06/16/2020 8:46 PM CDT History & Physical Date of service: 06/16/20 Primary care provider: Zeke Puente MD Chief Complaint: Leg pain HPI: 65-year-old female with a past medical history of dementia, osteomyelitis of bilat LE, DM, HTN, recovered covid 19 who presented to the ED with complaints of lethargy onset today. She was admitted in Nov 2019 at [facility]. She had a R heel ulcer [...] while she was recovering from a left mxwst-ifs-lzsp amputation performed on 2020. During a prior [...] mcg tablet Take 75 mcg by mouth derrick helper before breakfast Unknown at Unknown time ??? [...] Friends and Family: Patient refused ??? Attends [employer]: Patient refused ??? Active Member of [...] the past I had done a right-sided mhdln-uvw-ryyp amputation for bacteremia from osteomyelitis of the right heel about October or November of last year. At that time, there was an osteomyelitis of the left heel. Second amputation was recommended. However, patient's family wanted to go over into hospice and so she was discharged from [facility] after the amputation. I was called [...] supplement 3 times a day of the myThings. Examination She is a well-built, nourished, black [...] both lower extremities. Of course, status post ugamw-chg-oihu amputation on the right. The ZAYNAB done [...] bilateral superficial artery and infrapopliteal occlusive disease. Pxkbours-ae-mxwhip distal ischemia. Discussion I have told the daughter that she can have jydca-cay-yhdq amputation, although osteomyelitis there would not be [...] doses of levothyroxine. We will proceed with ctzpq-vok-dtko amputation on the left. Thank you. Job ID/VF Job ID: [id number] * Arley Peña MD - 06/18/2020 10:13 [...] mcg tablet Take 75 mcg by mouth derrick helper before breakfast Unknown at Unknown time ??? [...] 06/26/2020 4:07 PM CDT Attempted to call [facility] 5 times to give report on pt, was told the nurse would call me back, but nurse did not call back. [facility] came to picker and packer pt at [phone] and pt wastransported to facility. * Layne Alarcon, SPENECR - 06/21/2020 8:37 PM CDT Pt was retaining urine, frequently straight cathed BECK TENDER documented in this encounter ED Notes * [...] diagnoses: Other acute osteomyelitis of left foot ([facility]) Encephalopathy acute Hyperlipidemia, unspecified hyperlipidemia type Hypertension, unspecified type Type 2 diabetes mellitus with other specified complication, unspecified whether intermodal customer service insulin use (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 Temp 101f. Pt a/ox1. * Mally [...] pt will be discharged via ambulance to [facility], up in chair for breakfast [...] been [facility] in [place], [place].The patient's daughter,Ailyn Turner is agreeable with the discharge plan.Preliminary discharge medication list was faxed.The patient will transport via [facility] this afternoon at 3 pm.Dispo code-skilled [...] therapy at discharge.SNF referrals sent to some [facility] preferred providers.Additionally,I will email the patient's daughter a listing of SNFs. * [facility] Note - Preeti Martinez LCSW - 06/25/2020 2:59 PM CDT Patient Information: PHOTOENGRAVER APPRENTICE Eval and Treat Last Documented PHOTOENGRAVER APPRENTICE ASSESSMENT (most recent) PHOTOENGRAVER APPRENTICE Evaluation - 06/25/20 1054 General Session Type Treatment Precautions Precautions Bed/Chair Alarm;Fall risk;Safety Cognition Orientation Oriented X4 (person, place, time, situation) Pain Assessment Pain Assessment 0-10 Pain Score 8 Patient's Stated Pain Goal No pain Pain Type Surgical pain Pain Location Leg Pain Orientation Left PHOTOENGRAVER APPRENTICE SWALLOW STUDY (most recent) Clinical Swallow Study No documentation. PHOTOENGRAVER APPRENTICE TREATMENT (most recent) PHOTOENGRAVER APPRENTICE Treatment - 06/25/20 1054 General Session Type Treatment Precautions Precautions Bed/Chair Alarm;Fall risk;Safety Pain Assessment Pain Assessment 0-10 Pain Score 8 Patient's Stated Pain Goal No pain Pain Type Surgical pain Pain Location Leg Pain Orientation Left PHOTOENGRAVER APPRENTICE Notes (Notes from 06/23/20 through 06/25/20) No [...] -- -- -- Home Layout One level -[employer] (r) LAUREN (t) -- -- -- Home Access Other (Comment) pt states some stairs to enter; unsure of how many or rails - (r) LAUREN (t) -- -- -- Bathroom Accessibility Not accessible pt states can't get into bathroom in her chair at home -[employer] (r) LAUREN (t) -- -- -- Home Mobility Equipment -- pt had amisha + hospice chair - both taken back by hospice -[employer] (r) BB (t)-- -- -- Home ADL Equipment Other (Comment) unsure -[employer] (r) BB (t) -- -- -- Additional [...] friend. 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 Hospice staff completed bathing 2x/week. kitchen and counter worker 4 hours day Monday-Monday that completed [...] safely transfer back to bed when needed. Seal Mixing Operator was also contacted and will be available to assist nursing as able with transfers and can further guide senior staff accountant with pt safety. - BB -- -- Pre-session: HR=80, O2=96%, GQ=702/79 -EW Pain Assessment 0-10 -BB -- 0-10 [...] as tolerated -EW -- PT Recommendation/Plan (S) [facility] Facility -BB -- (S) Defer at this [...] PT. PT completed session w/ assistance of compliance review specialist to maximize safety with all functional [...] a family friend. 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 Hospice staff completed bathing 2x/week. kitchen and counter worker 4 hours day Monday-Monday that completed [...] discharge summary -MW -- OT Recommendation (S) [facility] Facility -MW -- OT Frequency 3-5x/wk -MW [...] with current plan -ES OT Recommendation (S) [facility] Facility -ES User Franco (r) = Recorded [...] Shift: VSS, pain control, tolerate diet, turn [id number], work with therapy, monitor surgical site, safety, comfort Summary: VSS, pain under control with PRN medications, tolerating GI soft diet with no complaints of nausea or abdominal pain, turned [id number], up to chair with therapy, surgical site dry and intact, straight cathed for bladder scan >700, now resting comfortably in bed with call light in reach. * Plan of Care - Eveiln Reaves RN - 06/24/2020 7:00 AM CDT [...] h/h, safety, rest Summary: Pt arrived to [facility] from ICU approximately 2230. VSS. A&Ox3 with [...] ICU room # 599.Report provided to Divya,social science instructor who will follow the patient. * Provider [...] with Dr. Peña Operative notes states: 06/19 [id number] amputation of the left This documentation will become part of the patient???s medical record. 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 ICU 06/21 at 20:09. VSS, calm, [...] bleeding on the floor. Hgb =8.2 during CLOCK AND WATCH ASSEMBLER, Hgb = 8.7 & 8.5 in ICU. [...] COMFORT MEASURES PROVIDED. ACCOMPANIED BY ANESTHESIA AND INSTRUMENT/CONTROL TECHNICIAN. WARM BLANKETS X-3. * Perioperative Nursing Note [...] superficial femoral artery that was occluded. Operation [id number] amputation of the left. Anesthesia General. Procedure [...] replacement was necessary. Job ID/VF Job ID: [id number] * Plan of Care - Kathy Pineda [...] Information Obtained From: Adult child Name: daughterAilyn [phone] (06/17/20 1409) Admission Source: from home to 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 Ailyn is the youngest child although stated [...] Collaboration with patient, MD, direct care nurse, Bench Worker Helper, Nurse Coordinator and other members of the health care team to assure needed interventions completed. 2. Return patient to optimal level of self-care post discharge. 3. Rn Case Management will follow for Discharge Planning - interventions [...] time, pt was in a SNF in [place], [place]. At some point she had hospice but not sure for how long, apparently those services were ceased. Pt was admitted for left leg pain, recent tx of infection, has the need for possible amputation. non emergency services ambulance driver has been consulted as likely will need placement once again. Podiatry eval is pending. Current txdoes include IV abxs. Weight bearing status will need to be determined if and when therapies are ordered. Will continue to monitor along with social science instructor. * Plan of Care - Kathy Pineda [...] Procedure Name Priority Date/Time Associated Diagnosis Comments [facility]ED PAT[facility] INIT 30-74 MIN [...] 38 PM CDT PVD (peripheral vascular disease) ([facility]/HCC) AMPUTATION ABOVE KNEE 06/19/2020 5:52 [...] Routine 06/17/2020 1 1:57 AM CDT US ZYANAB IP Routine 06/17/2020 10:41 AM CDT POCT [...] CDT documented in this encounter Results * [facility]/INJURED PATIENT INIT 30-74 MIN [...] Glucose, POC 97 70 - 140 mg/dL [facility] Comment: For Glucose values <35 mg/dl when Hematocrit is >60 mg/dl,the test may not accurately detect significant hypoglycemia,and testing in the Laboratory should be considered if clinically indicated. Blood specimen (specimen) 06/26/2020 11:19 AM CDT 06/26/2020 11:19 AM CDT Reagan Salinas MD LAB POCT ORDERABLES - DEVICE F inal Result Performing Organization Address [facility] Co de Phone Number [facility] [address] [place] [address] * POCT glucose (06/26/2020 6:10 AM CDT) Glucose, POC 90 70 - 140 mg/dL [facility] Comment: For Glucose values <35 mg/dl when Hematocrit is >60 mg/dl,the test may not accurately detect significant hypoglycemia,and testing in the Laboratory should be considered if clinically indicated. Blood specimen (specimen) 06/26/2020 6:10 AM CDT 06/26/2020 6:10 AM CDT us Reagan Salinas MD LAB POCT ORDERABLES - DEVICE F inal Result Performing Organization Address [facility] Co de Phone Number [facility] [address] [place] [address] * (ABNORMAL) POCT glucose (06/25/2020 10:34 PM CDT) Glucose, POC 170(H) 70 - 140 mg/dL [facility] Comment: For Glucose values <35 mg/dl when Hematocrit is >60 mg/dl,the test may not accurately detect significant hypoglycemia,and testing in the Laboratory should be considered if clinically indicated. Blood specimen (specimen) 06/25/2020 10:34 PM CDT 06/25/2020 10:34 PM CDT Reagan Salinas MD LAB POCT ORDERABLES - DEVICE F inal Result Performing Organization Address [facility] de Phone Number [facility] [address] [facility] [employer] [place], [place] [phone] * (ABNORMAL) POCT glucose (06/25/2020 4:35 PM CDT) Glucose, POC 160(H) 70 - 140 mg/dL [facility] Comment: For Glucose values <35 mg/dl when Hematocrit is >60 mg/dl,the test may not accurately detect significant hypoglycemia,and testing in the Laboratory should be considered if clinically indicated. Blood specimen (specimen) 06/25/2020 4:35 PM CDT 06/25/2020 4:35 PM CDT Reagan Salinas MD LAB POCT ORDERABLES - DEVICE F inal Result Performing Organization Address [facility] de Phone Number [facility] [address] [facility] [place] [address] * (ABNORMAL) POCT glucose (06/25/2020 11:25 AM CDT) Glucose, POC 146(H) 70 - 140 mg/dL [facility] Comment: For Glucose values <35 mg/dl when Hematocrit is >60 mg/dl,the test may not accurately detect significant hypoglycemia,and testing in the Laboratory should be considered if clinically indicated. Blood specimen (specimen) 06/25/2020 11:25 AM CDT 06/25/2020 11:25 AM CDT Result [facility] Reagan Salinas MD LAB POCT ORDERABLES - DEVICE F inal Result Performing Organization Address [facility] Co de Phone Number [facility] [address] [facility] [place] [address] * POCT glucose (06/25/2020 6:40 AM CDT) Glucose, POC 138 70 - 140 mg/dL [facility] Comment: For Glucose values <35 mg/dl when Hematocrit is >60 mg/dl,the test may not accurately detect significant hypoglycemia,and testing in the Laboratory should be considered if clinically indicated. Blood specimen (specimen) 06/25/2020 6:40 AM CDT 06/25/2020 6:40 AM CDT Result [facility] Reagan Salinas MD LAB POCT ORDERABLES - DEVICE F inal Result Performing Organization Address [facility] de Phone Number [facility] [address] [place] [address] * (ABNORMAL) POCT glucose (06/24/2020 9:07 PM CDT) Glucose, POC 202(H) 70 - 140 mg/dL [facility] Comment: For Glucose values <35 mg/dl when Hematocrit is >60 mg/dl,the test may not accurately detect significant hypoglycemia,and testing in the Laboratory should be considered if clinically indicated. Blood specimen (specimen) 06/24/2020 9:07 PM CDT 06/24/2020 9:07 PM CDT Summer Anguiano MD LAB POCT ORDERABLES - DEVIC E Final Result Performing Organization Address [facility] Co de Phone Number [facility] [address] [place] [address] * (ABNORMAL) POCT glucose (06/24/2020 5:13 PM CDT) Glucose, POC 156(H) 70 - 140 mg/dL [facility] Comment: For Glucose values <35 mg/dl when Hematocrit is >60 mg/dl,the test may not accurately detect significant hypoglycemia,and testing in the Laboratory should be considered if clinically indicated. Blood specimen (specimen) 06/24/2020 5:13 PM CDT 06/24/2020 5:13 PM CDT Summer Anguiano MD LAB POCT ORDERABLES - DEVIC E Final Result Performing Organization Address [facility] Co de Phone Number [facility] [address] [place] [address] * POCT glucose (06/24/2020 11:33 AM CDT) Glucose, POC 112 70 - 140 mg/dL [facility] Comment: For Glucose values <35 mg/dl when Hematocrit is >60 mg/dl,the test may not accurately detect significant hypoglycemia,and testing in the Laboratory should be considered if clinically indicated. Blood specimen (specimen) 06/24/2020 11:33 AM CDT 06/24/2020 11:33 AM CDT Summer Anguiano MD LAB POCT ORDERABLES - DEVIC E Final Result Performing Organization Address [facility] Co de Phone Number [facility] [address] [facility] [place] [address] * POCT glucose (06/24/2020 7:50 AM CDT) Glucose, POC 123 70 - 140 mg/dL [facility] Comment: For Glucose values <35 mg/dl when Hematocrit is >60 mg/dl,the test may not accurately detect significant hypoglycemia,and testing in the Laboratory should be considered if clinically indicated. Blood specimen (specimen) 06/24/2020 7:50 AM CDT 06/24/2020 7:50 AM CDT us Summer Anguiano MD LAB POCT ORDERABLES - DEVIC E Final Result Performing Organization Address [facility] Co de Phone Number [facility] [address] [place] [address] * eGFR (06/24/2020 5:38 AM CDT) eGFR 96 mL/min/1.7 3 m2 [facility] Comment: Interpretive Data Reference Interval Normal ?>/= [...] BLOOD ORDERABLES Final Result Performing Organization Address [facility] Co de Phone Number [facility] [address] [place] [address] * (ABNORMAL) Differential, auto (06/24/2020 5:38 AM CDT) Neutrophil abs 7.5(H) 1.7 - 6.5 K/cumm [facility] Imm gran abs 0.5(H) 0.0 - 0.1 K/cumm [facility] Lymphocyte abs 2.2 0.8 - 3.3 K/cumm [facility] Monocyte abs 0.6 0.2 - 0.8 K/cumm [facility] Eosinophil abs 0.2 0.0 - 0.5 K/cumm [facility] Basophil abs 0.1 0.0 - 0.1 K/cumm [facility] Neutrophil pct 68.1 % [facility] Comment: Interpretive Data Percent cell count reference ranges are not reported, since discordance with absolute values may lead to misinterpretation of CBC data. Current Interpretive Data was last revised on 2017. Imm gran pct 4.8 % [facility] Comment: Interpretive Data Percent cell count reference ranges are not reported, since discordance with absolute values may lead to misinterpretation of CBC data. Current Interpretive Data was last revised on 2017. Lymphocyte pct 19.8 % [facility] Comment: Interpretive Data Percent cell count reference ranges are not reported, since discordance with absolute values may lead to misinterpretation of CBC data. Current Interpretive Data was last revised on 2017. Monocyte pct 5.0 % [facility] Comment: Interpretive Data Percent cell count reference ranges are not reported, since discordance with absolute values may lead to misinterpretation of CBC data. Current Interpretive Data was last revised on 2017. Eosinophil pct 1.8 % [facility] Comment: Interpretive Data Percent cell count reference ranges are not reported, since discordance with absolute values may lead to misinterpretation of CBC data. Current Interpretive Data was last revised on 2017. Basophil pct 0.5 % [facility] Comment: Interpretive Data Percent cell count reference ranges are not reported, since discordance with absolute values may lead to misinterpretation of CBC data. Current Interpretive Data was last revised on 2017. Blood specimen (specimen) 06/24/2020 5:38 AM CDT 06/24/2020 6:18 AM CDT Summer Anguiano MD LAB BLOOD ORDERABLES Final Result Performing Organization Address City/[facility]/ZIP Co de Phone Number [facility] [address] [place] [address] * (ABNORMAL) Basic metabolic panel (06/24/2020 5:38 AM CDT) [facility] Sodium 137 135 - 145 mmol/L [facility] Potassium, pl 3.7 3.3 - 4.9 mmol/L [facility] Chloride 97 97 - 110 mmol/L [facility] CO2 30 22 - 32 mmol/L [facility] Anion gap 10 2 - 15 mmol/L [facility] BUN 10 8 - 25 mg/dL [facility] Creatinine 0.60 0.60 - 1.10 mg/dL [facility] Glucose 96 70 - 199 mg/dL [facility] Comment: Interpretive Data Fasting glucose >/= 126 [...] 2017. Calcium 8.3(L) 8.5 - 10.3 mg/dL [facility] Blood specimen (specimen) 06/24/2020 5:38 AM CDT 06/24/2020 6:16 AM CDT Summer Anguiano MD LAB BLOOD ORDERABLES Final Result Performing Organization Address [facility]/ZIP Co de Phone Number [facility] [address] Department [place] [address] * (ABNORMAL) CBC with auto differential (06/24/2020 5:38 AM CDT) [facility] WBC 11.1(H) 3.8 - 9.9 K/cumm [facility] Hgb 7.6(L) 11.9 - 15.5 g/dL [facility] Hct 23.1(L) 35.6 - 45.5 % [facility] Plt 248 150 - 400 K/cumm [facility] MPV 10.0 9.1 - 12.3 fL [facility] RBC 2.43(L) 3.90 - 5.20 M/cumm [facility] MCV 95.1 81.3 - 96.4 fL [facility] MCH 31.3 27.1 - 33.3 pg [facility] MCHC 32.9 32.3 - 35.7 g/dL [facility] RDW CV 15.8(H) 11.1 - 14.9 % [facility] RDW SD 54.2(H) 35.7 - 48.1 fL [facility] NRBC abs 0.05(H) 0.00 - 0.01 K/cumm [facility] Blood specimen (specimen) 06/24/2020 5:38 AM CDT 06/24/2020 6:18 AM CDT Summer Anguiano MD LAB BLOOD ORDERABLES Final Result [facility] [address] Department [place] [address] * (ABNORMAL) POCT glucose (06/23/2020 10:09 PM CDT) [facility] Glucose, POC 170(H) 70 - 140 mg/dL [facility] Comment: For Glucose values <35 mg/dl when Hematocrit is >60 mg/dl,the test may not accurately detect significant hypoglycemia,and testing in the Laboratory should be considered if clinically indicated. Blood specimen (specimen) 06/23/2020 10:09 PM CDT 06/23/2020 10:09 PM CDT Summer Anguiano MD LAB POCT ORDERABLES - DEVIC E Final Result Performing Organization Address [facility] Co de Phone Number [facility] [address] Department [employer] [place], [place] [phone] * POCT glucose (06/23/2020 4:32 PM CDT) [facility] Glucose, POC 112 70 - 140 mg/dL [facility] Comment: For Glucose values <35 mg/dl when Hematocrit is >60 mg/dl,the test may not accurately detect significant hypoglycemia,and testing in the Laboratory should be considered if clinically indicated. Blood specimen (specimen) 06/23/2020 4:32 PM CDT 06/23/2020 4:32 PM CDT Summer Anguiano MD LAB POCT ORDERABLES - DEVIC E Final Result Performing Organization Address [facility] de Phone Number [facility] [address] Department [place] [address] * (ABNORMAL) POCT glucose (06/23/2020 11:32 AM CDT) [facility] Glucose, POC 180(H) 70 - 140 mg/dL [facility] Comment: For Glucose values <35 mg/dl when Hematocrit is >60 mg/dl,the test may not accurately detect significant hypoglycemia,and testing in the Laboratory should be considered if clinically indicated. Blood specimen (specimen) 06/23/2020 11:32 AM CDT 06/23/2020 11:32 AM CDT Summer Anguiano MD LAB POCT ORDERABLES - DEVIC E Final Result Performing Organization Address [facility] Co de Phone Number [facility] [address] Department [employer] [place], [place] [phone] * CBC with differential - Add on lab test (06/23/2020 8:06 AM CDT) [facility] Acceptable Yes [facility] Blood specimen (specimen) 06/23/2020 8:06 AM CDT 06/23/2020 8:07 AM CDT Narrative [facility] - 06/23/2020 8:07 AM CDT Name of Test->CBC with differential Summer Anguiano MD LAB BLOOD ORDERABLES Final Result Performing Organization Address [facility] Co de Phone Number [facility] [address] Department of Laboratories [place], [place] [phone] * POCT glucose (06/23/2020 6:06 AM CDT) Glucose, POC 76 70 - 140 mg/dL [facility] Comment: For Glucose values <35 mg/dl when Hematocrit is >60 mg/dl,the test may not accurately detect significant hypoglycemia,and testing in the Laboratory should be considered if clinically indicated. Blood specimen (specimen) 06/23/2020 6:06 AM CDT 06/23/2020 6:06 AM CDT us Summer Anguiano MD LAB POCT ORDERABLES - DEVIC E Final Result Performing Organization Address [facility] de Phone Number [facility] [address] Department of Laboratories [place], [place] [phone] * (ABNORMAL) Differential, auto (06/23/2020 6:01 AM CDT) Neutrophil abs 9.3(H) 1.7 - 6.5 K/cumm [facility] Imm gran abs 0.5(H) 0.0 - 0.1 K/cumm [facility] Lymphocyte abs 2.2 0.8 - 3.3 K/cumm [facility] Monocyte abs 0.5 0.2 - 0.8 K/cumm [facility] Eosinophil abs 0.3 0.0 - 0.5 K/cumm [facility] Basophil abs 0.1 0.0 - 0.1 K/cumm [facility] Neutrophil pct 72.5 % [facility] Comment: Interpretive Data Percent cell count reference ranges are not reported, since discordance with absolute values may lead to misinterpretation of CBC data. Current Interpretive Data was last revised on 2017. Imm gran pct 3.8 % [facility] Comment: Interpretive Data Percent cell count reference ranges are not reported, since discordance with absolute values may lead to misinterpretation of CBC data. Current Interpretive Data was last revised on 2017. Lymphocyte pct 16.9 % [facility] Comment: Interpretive Data Percent cell count reference ranges are not reported, since discordance with absolute values may lead to misinterpretation of CBC data. Current Interpretive Data was last revised on 2017. Monocyte pct 4.1 % [facility] Comment: Interpretive Data Percent cell count reference ranges are not reported, since discordance with absolute values may lead to misinterpretation of CBC data. Current Interpretive Data was last revised on 2017. Eosinophil pct 2.2 % [facility] Comment: Interpretive Data Percent cell count reference ranges are not reported, since discordance with absolute values may lead to misinterpretation of CBC data. Current Interpretive Data was last revised on 2017. Basophil pct 0.5 % [facility] Comment: Interpretive Data Percent cell count reference ranges are not reported, since discordance with absolute values may lead to misinterpretation of CBC data. Current Interpretive Data was last revised on 2017. Blood specimen (specimen) 06/23/2020 6:01 AM CDT 06/23/2020 8:04 AM CDT us Summer Anguiano MD LAB BLOOD ORDERABLES Final Result [facility] [address] [place] [address] * (ABNORMAL) CBC with auto differential (06/23/2020 6:01 AM CDT) WBC 12.8(H) 3.8 - 9.9 K/cumm [facility] Hgb 7.2(L) 11.9 - 15.5 g/dL [facility] Hct 21.2(L) 35.6 - 45.5 % [facility] Plt 208 150 - 400 K/cumm [facility] MPV 10.2 9.1 - 12.3 fL [facility] RBC 2.25(L) 3.90 - 5.20 M/cumm [facility] MCV 94.2 81.3 - 96.4 fL [facility] MCH 32.0 27.1 - 33.3 pg [facility] MCHC 34.0 32.3 - 35.7 g/dL [facility] RDW CV 16.3(H) 11.1 - 14.9 % [facility] RDW SD 55.0(H) 35.7 - 48.1 fL [facility] NRBC abs 0.02(H) 0.00 - 0.01 K/cumm [facility] Blood specimen (specimen) 06/23/2020 6:01 AM CDT 06/23/2020 8:04 AM CDT Narrative [facility] - 06/23/2020 8:09 AM CDT added to blood in lab us Summer Anguiano MD LAB BLOOD ORDERABLES Final Result Performing Organization Address [facility]/ZIP Co de Phone Number [facility] [address] [place] [address] * (ABNORMAL) Hemoglobin and hematocrit (06/23/2020 6:01 AM CDT) [facility] Hgb 7.3(L) 11.9 - 15.5 g/dL [facility] Hct 21.5(L) 35.6 - 45.5 % [facility] Blood specimen (specimen) 06/23/2020 6:01 AM CDT 06/23/2020 6:01 AM CDT us Harlan Salamanca MD LAB BLOOD ORDERABLES Final R esult Performing Organization Address City/[facility]/ZIP Co de Phone Number [facility] [address] Department [place] [address] * (ABNORMAL) Hemoglobin and hematocrit (06/23/2020 12:12 AM CDT) Hgb 7.0(L) 11.9 - 15.5 g/dL [facility] Hct 20.6(L) 35.6 - 45.5 % [facility] Blood specimen (specimen) 06/23/2020 12:12 AM CDT 06/23/2020 12:12 AM CDT Harlan Salamanca MD LAB BLOOD ORDERABLES Final R esult Performing Organization Address [facility] Co de Phone Number [facility] [address] [facility] [place] [address] * POCT glucose (06/22/2020 8:12 PM CDT) [facility] Glucose, POC 90 70 - 140 mg/dL [facility] Comment: For Glucose values <35 mg/dl when Hematocrit is >60 mg/dl,the test may not accurately detect significant hypoglycemia,and testing in the Laboratory should be considered if clinically indicated. Blood specimen (specimen) 06/22/2020 8:12 PM CDT 06/22/2020 8:12 PM CDT Result [facility] Summer Anguiano MD LAB POCT ORDERABLES - DEVIC E Final Result Performing Organization Address [facility] Co de Phone Number [facility] [address] Department [place] [address] * (ABNORMAL) Hemoglobin and hematocrit (06/22/2020 8:12 PM CDT) Hgb 7.0(L) 11.9 - 15.5 g/dL [facility] Hct 20.6(L) 35.6 - 45.5 % [facility] Blood specimen (specimen) 06/22/2020 8:12 PM CDT 06/22/2020 8:28 PM CDT Harlan Salamanca MD LAB BLOOD ORDERABLES Final R esult Performing Organization Address [facility]/ZIP Co de Phone Number [facility] [address] [facility] [employer] [place], [place] [phone] * POCT glucose (06/22/2020 6:42 PM CDT) Glucose, POC 83 70 - 140 mg/dL [facility] Comment: For Glucose values <35 mg/dl when Hematocrit is >60 mg/dl,the test may not accurately detect significant hypoglycemia,and testing in the Laboratory should be considered if clinically indicated. Blood specimen (specimen) 06/22/2020 6:42 PM CDT 06/22/2020 6:42 PM CDT us Summer Anguiano MD LAB POCT ORDERABLES - DEVIC E Final Result Performing Organization Address [facility] Co de Phone Number [facility] [address] [facility] [employer] [place], [place] [phone] * POCT glucose (06/22/2020 1:08 PM CDT) Glucose, POC 89 70 - 140 mg/dL [facility] Comment: For Glucose values <35 mg/dl when Hematocrit is >60 mg/dl,the test may not accurately detect significant hypoglycemia,and testing in the Laboratory should be considered if clinically indicated. Blood specimen (specimen) 06/22/2020 1:08 PM CDT 06/22/2020 1:08 PM CDT us Harlan Salamanca MD LAB POCT ORDERABLES - DEVICE Final Result Performing Organization Address [facility] Co de Phone Number [facility] [address] [facility] [employer] [place], [place] [phone] * (ABNORMAL) Hemoglobin and hematocrit (06/22/2020 12:33 PM CDT) Hgb 7.1(L) 11.9 - 15.5 g/dL [facility] Hct 20.8(L) 35.6 - 45.5 % [facility] Blood specimen (specimen) 06/22/2020 12:33 PM CDT 06/22/2020 12:48 PM CDT us Summer Anguiano MD LAB BLOOD ORDERABLES Final Result Performing Organization Address [facility] Co de Phone Number [facility] [address] [facility] [employer] [place], [place] [id number] * POCT glucose (06/22/2020 9:07 AM CDT) Glucose, POC 79 70 - 140 mg/dL [facility] Comment: For Glucose values <35 mg/dl when Hematocrit is >60 mg/dl,the test may not accurately detect significant hypoglycemia,and testing in the Laboratory should be considered if clinically indicated. Blood specimen (specimen) 06/22/2020 9:07 AM CDT 06/22/2020 9:07 AM CDT us Harlan Salamanca MD LAB POCT ORDERABLES - DEVICE Final Result Performing Organization Address [facility] de Phone Number [facility] [address] [facility] [place] [address] * eGFR (06/22/2020 3:52 AM CDT) eGFR 93 mL/min/1.7 3 m2 [facility] Comment: Interpretive Data Reference Interval Normal ?>/= [...] MD LAB BLOOD ORDERABLES Final R esult [facility] [address] [place] [address] * (ABNORMAL) Differential, auto (06/22/2020 3:52 AM CDT) Neutrophil abs 6.3 1.7 - 6.5 K/cumm [facility] Imm gran abs 0.4(H) 0.0 - 0.1 K/cumm [facility] Lymphocyte abs 1.5 0.8 - 3.3 K/cumm [facility] Monocyte abs 0.4 0.2 - 0.8 K/cumm [facility] Eosinophil abs 0.1 0.0 - 0.5 K/cumm [facility] Basophil abs 0.0 0.0 - 0.1 K/cumm [facility] Neutrophil pct 71.7 % [facility] Comment: Interpretive Data Percent cell count reference ranges are not reported, since discordance with absolute values may lead to misinterpretation of CBC data. Current Interpretive Data was last revised on 2017. Imm gran pct 4.8 % [facility] Comment: Interpretive Data Percent cell count reference ranges are not reported, since discordance with absolute values may lead to misinterpretation of CBC data. Current Interpretive Data was last revised on 2017. Lymphocyte pct 17.0 % [facility] Comment: Interpretive Data Percent cell count reference ranges are not reported, since discordance with absolute values may lead to misinterpretation of CBC data. Current Interpretive Data was last revised on 2017. Monocyte pct 4.6 % [facility] Comment: Interpretive Data Percent cell count reference ranges are not reported, since discordance with absolute values may lead to misinterpretation of CBC data. Current Interpretive Data was last revised on 2017. Eosinophil pct 1.4 % [facility] Comment: Interpretive Data Percent cell count reference ranges are not reported, since discordance with absolute values may lead to misinterpretation of CBC data. Current Interpretive Data was last revised on 2017. Basophil pct 0.5 % [facility] Comment: Interpretive Data Percent cell count reference ranges are not reported, since discordance with absolute values may lead to misinterpretation of CBC data. Current Interpretive Data was last revised on 2017. Blood specimen (specimen) 06/22/2020 3:52 AM CDT 06/22/2020 3:57 AM CDT us Summer Anguiano MD LAB BLOOD ORDERABLES Final Result [facility] [address] Department of Laboratories [place], [place] [phone] * Renal function panel (06/22/2020 3:52 AM CDT) Sodium 137 135 - 145 mmol/L [facility] Potassium, pl 3.7 3.3 - 4.9 mmol/L [facility] Chloride 97 97 - 110 mmol/L [facility] CO2 29 22 - 32 mmol/L [facility] Anion gap 11 2 - 15 mmol/L [facility] BUN 18 8 - 25 mg/dL [facility] Creatinine 0.65 0.60 - 1.10 mg/dL [facility] Glucose 102 70 - 199 mg/dL [facility] Comment: Interpretive Data Fasting glucose >/= 126 [...] 2017. Calcium 8.8 8.5 - 10.3 mg/dL [facility] Phosphorus, pl 2.6 2.3 - 4.5 mg/dL [facility] Albumin 3.6 3.5 - 5.0 g/dL [facility] Blood specimen (specimen) 06/22/2020 3:52 AM CDT 06/22/2020 3:57 AM CDT us Spenser Ascencio MD LAB BLOOD ORDERABLES Final R esult [facility] [address] [place] [address] * (ABNORMAL) CBC with auto differential (06/22/2020 3:52 AM CDT) WBC 8.8 3.8 - 9.9 K/cumm [facility] Hgb 8.5(L) 11.9 - 15.5 g/dL [facility] Hct 25.1(L) 35.6 - 45.5 % [facility] Plt 195 150 - 400 K/cumm [facility] MPV 9.7 9.1 - 12.3 fL [facility] RBC 2.78(L) 3.90 - 5.20 M/cumm [facility] MCV 90.3 81.3 - 96.4 fL [facility] MCH 30.6 27.1 - 33.3 pg [facility] MCHC 33.9 32.3 - 35.7 g/dL [facility] RDW CV 15.8(H) 11.1 - 14.9 % [facility] RDW SD 51.8(H) 35.7 - 48.1 fL [facility] NRBC abs 0.00 0.00 - 0.01 K/cumm [facility] Blood specimen (specimen) 06/22/2020 3:52 AM CDT 06/22/2020 3:57 AM CDT us Summer Anguiano MD LAB BLOOD ORDERABLES Final Result Performing Organization Address [facility] de Phone Number [facility] [address] [place] [address] * eGFR (06/21/2020 10:21 PM CDT) eGFR 93 mL/min/1.7 3 m2 [facility] Comment: Interpretive Data Reference Interval Normal ?>/= [...] ORDERABLES Final R esult Performing Organization Address [facility] Co de Phone Number [facility] [address] Department [place] [address] * (ABNORMAL) Renal function panel (06/21/2020 10:21 PM CDT) [facility] Sodium 137 135 - 145 mmol/L [facility] Potassium, pl 4.0 3.3 - 4.9 mmol/L [facility] Chloride 98 97 - 110 mmol/L [facility] CO2 33(H) 22 - 32 mmol/L [facility] Anion gap 6 2 - 15 mmol/L [facility] BUN 19 8 - 25 mg/dL [facility] Creatinine 0.65 0.60 - 1.10 mg/dL [facility] Glucose 162 70 - 199 mg/dL [facility] Comment: Interpretive Data Fasting glucose >/= 126 [...] 2017. Calcium 8.9 8.5 - 10.3 mg/dL [facility] Phosphorus, pl 2.9 2.3 - 4.5 mg/dL [facility] Albumin 3.7 3.5 - 5.0 g/dL [facility] Blood specimen (specimen) 06/21/2020 10:21 PM CDT 06/21/2020 10:31 PM CDT Spenser Ascencio MD LAB BLOOD ORDERABLES Final R esult [facility] [address] Department [place] [address] * Lactate (06/21/2020 10:21 PM CDT) [facility] Lactate 1.1 0.7 - 2.0 mmol/L [facility] Blood specimen (specimen) 06/21/2020 10:21 PM CDT 06/21/2020 10:27 PM CDT Spenser Ascencio MD LAB BLOOD ORDERABLES Final R esult Performing Organization Address [facility] Co de Phone Number [facility] [address] [employer] [place], [place] [phone] * (ABNORMAL) CBC without differential (06/21/2020 10:21 PM CDT) [facility] WBC 9.9 3.8 - 9.9 K/cumm [facility] Hgb 8.7(L) 11.9 - 15.5 g/dL [facility] Hct 25.5(L) 35.6 - 45.5 % [facility] Plt 176 150 - 400 K/cumm [facility] MPV 9.9 9.1 - 12.3 fL [facility] RBC 2.80(L) 3.90 - 5.20 M/cumm [facility] MCV 91.1 81.3 - 96.4 fL [facility] MCH 31.1 27.1 - 33.3 pg [facility] MCHC 34.1 32.3 - 35.7 g/dL [facility] RDW CV 15.8(H) 11.1 - 14.9 % [facility] RDW SD 52.6(H) 35.7 - 48.1 fL [facility] NRBC abs 0.00 0.00 - 0.01 K/cumm [facility] Blood specimen (specimen) 06/21/2020 10:21 PM CDT 06/21/2020 10:31 PM CDT Spenser Ascencio MD LAB BLOOD ORDERABLES Final R esult Performing Organization Address City/[facility]/ZIP Co de Phone Number [facility] [address] [facility] [employer] [place], [place] [phone] * (ABNORMAL) POCT glucose (06/21/2020 9:23 PM CDT) Glucose, POC 196(H) 70 - 140 mg/dL [facility] Comment: For Glucose values <35 mg/dl when Hematocrit is >60 mg/dl,the test may not accurately detect significant hypoglycemia,and testing in the Laboratory should be considered if clinically indicated. Blood specimen (specimen) 06/21/2020 9:23 PM CDT 06/21/2020 9:23 PM CDT us Summer Anguiano MD LAB POCT ORDERABLES - DEVIC E Final Result [facility] [address] [place] [address] * CT Abdomen Pelvis W Contrast (06/21/2020 [...] CDT) Hgb 8.2(L) 11.9 - 15.5 g/dL [facility] Hct 24.2(L) 35.6 - 45.5 % [facility] Blood specimen (specimen) 06/21/2020 7:08 PM CDT 06/21/2020 7:08 PM CDT Result [facility] Summer Anguiano MD LAB BLOOD ORDERABLES Final Result Performing Organization Address [facility] Co de Phone Number [facility] [address] [employer] [place], [place] [phone] * POCT glucose (06/21/2020 4:35 PM CDT) Glucose, POC 136 70 - 140 mg/dL [facility] Comment: For Glucose values <35 mg/dl when Hematocrit is >60 mg/dl,the test may not accurately detect significant hypoglycemia,and testing in the Laboratory should be considered if clinically indicated. Glucose comment 1 Follow Protocol [facility] Blood specimen (specimen) 06/21/2020 4:35 PM CDT 06/21/2020 4:35 PM CDT Result [facility] Summer Anguiano MD LAB POCT ORDERABLES - DEVIC E Final Result Performing Organization Address [facility]/ZIP Co de Phone Number [facility] [address] [facility] [employer] [place], [place] [phone] * POCT glucose (06/21/2020 1:36 PM CDT) Glucose, POC 111 70 - 140 mg/dL [facility] Comment: For Glucose values <35 mg/dl when Hematocrit is >60 mg/dl,the test may not accurately detect significant hypoglycemia,and testing in the Laboratory should be considered if clinically indicated. Blood specimen (specimen) 06/21/2020 1:36 PM CDT 06/21/2020 1:36 PM CDT us Summer Anguiano MD LAB POCT ORDERABLES - DEVIC E Final Result Performing Organization Address [facility] Co de Phone Number [facility] [address] [facility] [place] [address] * Transfuse RBC (06/21/2020 12:41 PM CDT) Blood specimen (specimen) Preeti Mays NP BLOOD TRANSFUSIO N ORDERABLES Edited Result - Final Performing Organization Address [facility] de Phone Number [facility] [address] [place] [address] * Transfuse RBC: 1 Units (06/21/2020 12:41 PM CDT) Blood specimen (specimen) Preeti Mays NP BLOOD TRANSFUSIO N ORDERABLES Edited Result - Final * Type and screen (06/21/2020 6:56 AM CDT) ABO Rh O Positive [facility] Veronica, indirect Negative [facility] Blood specimen (specimen) 06/21/2020 6:56 AM CDT 06/21/2020 7:02 AM CDT Narrative [facility] - 06/21/2020 7:40 AM CDT Has the patient had Daratumumab or Isatuximab in the past 6 months?->Unknown us Preeti Mays NP LAB BLOOD BANK T EST ORDERABLES Final Result Performing Organization Address [facility] Co de Phone Number [facility] [address] Department [place] [address] * Prepare RBC: 1 Units (06/21/2020 6:41 AM CDT) [facility] Product code [id number] [facility] Unit Number [id number] [facility] Product Blood Type OPOS [facility] Dispense Status PRESUMED TRANSFUSED [facility] Blood specimen (specimen) 06/21/2020 6:41 AM CDT Narrative [facility] - 06/22/2020 10:15 AM CDT Are special requirements needed? (all products are leukoreduced)->No Date required:-20200621 LRRBC # of [id number] Reasons:-Hgb <7 g/dL} us Preeti Mays NP BLOOD BANK PRODU CT ORDERABLES Final Result Performing Organization Address [facility] de Phone Number [facility] [address] Department [place] [address] * POCT glucose (06/21/2020 5:59 AM CDT) [facility] Glucose, POC 123 70 - 140 mg/dL [facility] Comment: For Glucose values <35 mg/dl when Hematocrit is >60 mg/dl,the test may not accurately detect significant hypoglycemia,and testing in the Laboratory should be considered if clinically indicated. Blood specimen (specimen) 06/21/2020 5:59 AM CDT 06/21/2020 5:59 AM CDT us Summer Anguiano MD LAB POCT ORDERABLES - DEVIC E Final Result Performing Organization Address [facility] Co de Phone Number [facility] [address] Department [place] [address] * Differential, auto (06/21/2020 5:58 AM CDT) [facility] Neutrophil abs 4.7 1.7 - 6.5 K/cumm [facility] Imm gran abs 0.1 0.0 - 0.1 K/cumm [facility] Lymphocyte abs 1.5 0.8 - 3.3 K/cumm [facility] Monocyte abs 0.4 0.2 - 0.8 K/cumm [facility] Eosinophil abs 0.2 0.0 - 0.5 K/cumm [facility] Basophil abs 0.0 0.0 - 0.1 K/cumm [facility] Neutrophil pct 68.2 % [facility] Comment: Interpretive Data Percent cell count reference ranges are not reported, since discordance with absolute values may lead to misinterpretation of CBC data. Current Interpretive Data was last revised on 2017. Imm gran pct 1.4 % [facility] Comment: Interpretive Data Percent cell count reference ranges are not reported, since discordance with absolute values may lead to misinterpretation of CBC data. Current Interpretive Data was last revised on 2017. Lymphocyte pct 21.7 % [facility] Comment: Interpretive Data Percent cell count reference ranges are not reported, since discordance with absolute values may lead to misinterpretation of CBC data. Current Interpretive Data was last revised on 2017. Monocyte pct 5.8 % [facility] Comment: Interpretive Data Percent cell count reference ranges are not reported, since discordance with absolute values may lead to misinterpretation of CBC data. Current Interpretive Data was last revised on 2017. Eosinophil pct 2.5 % [facility] Comment: Interpretive Data Percent cell count reference ranges are not reported, since discordance with absolute values may lead to misinterpretation of CBC data. Current Interpretive Data was last revised on 2017. Basophil pct 0.4 % [facility] Comment: Interpretive Data Percent cell count reference ranges are not reported, since discordance with absolute values may lead to misinterpretation of CBC data. Current Interpretive Data was last revised on 2017. Blood specimen (specimen) 06/21/2020 5:58 AM CDT 06/21/2020 6:12 AM CDT Summer Anguiano MD LAB BLOOD ORDERABLES Final Result [facility] [address] Department [place] [address] * (ABNORMAL) CBC with auto differential (06/21/2020 5:58 AM CDT) [facility] WBC 6.9 3.8 - 9.9 K/cumm [facility] Hgb 6.1(C) 11.9 - 15.5 g/dL [facility] Comment:Critical result call ed to and read back by CARLOS TUBBS (RN) on 06 21 2020 at 0631 to Sylvain Lerma. Hct 18.8(L) 35.6 - 45.5 % [facility] Plt 191 150 - 400 K/cumm [facility] MPV 10.0 9.1 - 12.3 fL [facility] RBC 2.00(L) 3.90 - 5.20 M/cumm [facility] MCV 94.0 81.3 - 96.4 fL [facility] MCH 30.5 27.1 - 33.3 pg [facility] MCHC 32.4 32.3 - 35.7 g/dL [facility] RDW CV 15.0(H) 11.1 - 14.9 % [facility] RDW SD 51.3(H) 35.7 - 48.1 fL [facility] NRBC abs 0.00 0.00 - 0.01 K/cumm [facility] Blood specimen (specimen) 06/21/2020 5:58 AM CDT 06/21/2020 6:12 AM CDT us Summer Anguiano MD LAB BLOOD ORDERABLES Final Result [facility] [address] Department [place] [address] * (ABNORMAL) POCT glucose (06/20/2020 8:21 PM CDT) [facility] Glucose, POC 150(H) 70 - 140 mg/dL [facility] Comment: For Glucose values <35 mg/dl when Hematocrit is >60 mg/dl,the test may not accurately detect significant hypoglycemia,and testing in the Laboratory should be considered if clinically indicated. Blood specimen (specimen) 06/20/2020 8:21 PM CDT 06/20/2020 8:21 PM CDT Summer Anguiano MD LAB POCT ORDERABLES - DEVIC E Final Result Performing Organization Address [facility] de Phone Number [facility] [address] [facility] [place] [address] * (ABNORMAL) POCT glucose (06/20/2020 4:46 PM CDT) Glucose, POC 147(H) 70 - 140 mg/dL [facility] Comment: For Glucose values <35 mg/dl when Hematocrit is >60 mg/dl,the test may not accurately detect significant hypoglycemia,and testing in the Laboratory should be considered if clinically indicated. Glucose comment 1 Follow Protocol [facility] Blood specimen (specimen) 06/20/2020 4:46 PM CDT 06/20/2020 4:46 PM CDT Summer Anguiano MD LAB POCT ORDERABLES - DEVIC E Final Result Performing Organization Address [facility] de Phone Number [facility] [address] [facility] [place] [address] * (ABNORMAL) POCT glucose (06/20/2020 11:27 AM CDT) Glucose, POC 154(H) 70 - 140 mg/dL [facility] Comment: For Glucose values <35 mg/dl when Hematocrit is >60 mg/dl,the test may not accurately detect significant hypoglycemia,and testing in the Laboratory should be considered if clinically indicated. Glucose comment 1 Follow Protocol [facility] Blood specimen (specimen) 06/20/2020 11:27 AM CDT 06/20/2020 11:27 AM CDT Summer Anguiano MD LAB POCT ORDERABLES - DEVIC E Final Result Performing Organization Address [facility]/ZIP Co de Phone Number [facility] [address] [facility] [place] [address] * (ABNORMAL) POCT glucose (06/20/2020 6:36 AM CDT) Pathologist [facility] Glucose, POC 165(H) 70 - 140 mg/dL [facility] Comment: For Glucose values <35 mg/dl when Hematocrit is >60 mg/dl,the test may not accurately detect significant hypoglycemia,and testing in the Laboratory should be considered if clinically indicated. Blood specimen (specimen) 06/20/2020 6:36 AM CDT 06/20/2020 6:36 AM CDT Summer Anguiano MD LAB POCT ORDERABLES - DEVIC E Final Result Performing Organization Address [facility] Co de Phone Number [facility] [address] Department [place] [address] * (ABNORMAL) Differential, auto (06/20/2020 6:03 AM CDT) [facility] Neutrophil abs 7.0(H) 1.7 - 6.5 K/cumm [facility] Imm gran abs 0.1 0.0 - 0.1 K/cumm [facility] Lymphocyte abs 0.9 0.8 - 3.3 K/cumm [facility] Monocyte abs 0.3 0.2 - 0.8 K/cumm [facility] Eosinophil abs 0.0 0.0 - 0.5 K/cumm [facility] Basophil abs 0.0 0.0 - 0.1 K/cumm [facility] Neutrophil pct 84.2 % [facility] Comment: Interpretive Data Percent cell count reference ranges are not reported, since discordance with absolute values may lead to misinterpretation of CBC data. Current Interpretive Data was last revised on 2017. Imm gran pct 0.8 % [facility] Comment: Interpretive Data Percent cell count reference ranges are not reported, since discordance with absolute values may lead to misinterpretation of CBC data. Current Interpretive Data was last revised on 2017. Lymphocyte pct 10.7 % [facility] Comment: Interpretive Data Percent cell count reference ranges are not reported, since discordance with absolute values may lead to misinterpretation of CBC data. Current Interpretive Data was last revised on 2017. Monocyte pct 4.0 % [facility] Comment: Interpretive Data Percent cell count reference ranges are not reported, since discordance with absolute values may lead to misinterpretation of CBC data. Current Interpretive Data was last revised on 2017. Eosinophil pct 0.1 % [facility] Comment: Interpretive Data Percent cell count reference ranges are not reported, since discordance with absolute values may lead to misinterpretation of CBC data. Current Interpretive Data was last revised on 2017. Basophil pct 0.2 % [facility] Comment: Interpretive Data Percent cell count reference ranges are not reported, since discordance with absolute values may lead to misinterpretation of CBC data. Current Interpretive Data was last revised on 2017. Blood specimen (specimen) 06/20/2020 6:03 AM CDT 06/20/2020 6:48 AM CDT us Arley Peña MD LAB BLOOD ORDERABLES Final Resu lt [facility] [address] [place] [address] * (ABNORMAL) CBC with auto differential (06/20/2020 6:03 AM CDT) WBC 8.4 3.8 - 9.9 K/cumm [facility] Hgb 7.0(L) 11.9 - 15.5 g/dL [facility] Comment:Hemoglobin delta due to surgical procedure. Amputation yesterday Hct 20.6(L) 35.6 - 45.5 % [facility] Plt 182 150 - 400 K/cumm [facility] MPV 10.3 9.1 - 12.3 fL [facility] RBC 2.24(L) 3.90 - 5.20 M/cumm [facility] MCV 92.0 81.3 - 96.4 fL [facility] MCH 31.3 27.1 - 33.3 pg [facility] MCHC 34.0 32.3 - 35.7 g/dL [facility] RDW CV 14.7 11.1 - 14.9 % [facility] RDW SD 49.3(H) 35.7 - 48.1 fL [facility] NRBC abs 0.00 0.00 - 0.01 K/cumm [facility] Blood specimen (specimen) 06/20/2020 6:03 AM CDT 06/20/2020 6:48 AM CDT Arley Peña MD LAB BLOOD ORDERABLES Final Resu lt Performing Organization Address [facility]/ZIP Co de Phone Number [facility] [address] Department [employer] [place], [place] [id number] * (ABNORMAL) POCT glucose (06/19/2020 10:24 PM CDT) Glucose, POC 210(H) 70 - 140 mg/dL [facility] Comment: For Glucose values <35 mg/dl when Hematocrit is >60 mg/dl,the test may not accurately detect significant hypoglycemia,and testing in the Laboratory should be considered if clinically indicated. Blood specimen (specimen) 06/19/2020 10:24 PM CDT 06/19/2020 10:24 PM CDT Summer Anguiano MD LAB POCT ORDERABLES - DEVIC E Final Result Performing Organization Address [facility]/ZIP Co de Phone Number [facility] [address] Department [employer] [place], [place] [id number] * POCT glucose (06/19/2020 8:03 PM CDT) Glucose, POC 82 70 - 140 mg/dL [facility] Comment: For Glucose values <35 mg/dl when Hematocrit is >60 mg/dl,the test may not accurately detect significant hypoglycemia,and testing in the Laboratory should be considered if clinically indicated. Blood specimen (specimen) 06/19/2020 8:03 PM CDT 06/19/2020 8:03 PM CDT us Summer Anguiano MD LAB POCT ORDERABLES - DEVIC E Final Result [facility] [place] [address] [place] [address] * Surgical pathology (06/19/2020 6:38 PM CDT) Tissue (Amputation non-tramatic) 06/19/2020 6:38 PM CDT Narrative PATHOLOGY [facility] - 07/03/2020 1:15 PM CDT [place] [id number] [place], [place] ??[address] Tele: ?? Marti Mueller MD - Talent Acquisition Relationship Manageradult probation officer PATHOLOGY REPORT Patient Name: ??IRIS GIL Address: ??[address] [place] [id number] Gender: ??F : ??1955 (Age: 65) Service: ??Medical Location: ??[facility], ?? Hospital #: ??[id number] Patient Type: ?? Inpatient Accession #: ? [id number] Taken: ? 06/19/2020 Received ? 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 ??Garbage Truck Driver sections are submitted as follows: ??A1 - bone marrow from bony margin of resection; A2 - popliteal, anterior and posterior tibial vessels; A3 - black-green area at heel; A4-A5 - bone of heel deep to black-green area; A6 - skin and soft tissue at margin of resection. ??Cassettes A2, A4 and A5 are submitted for decalcification. [facility]/07/01/2020 13:59 ? [facility] MICROSCOPIC DESCRIPTION: Microscopic examination supports the above captioned diagnosis. ??Section submitted as bone marrow from bone resection margin appears unremarkable. Clerical Data Follows A; [id number], [id number] REPORT IMAGES AND/OR SCANNED DOCUMENTS ONLY VIEWABLE IN PDF FORMAT The immunohistochemical test(s) cited in this report, if any, was developed and its performance characteristics determined by [facility] Pathology Department. ??It has not been cleared or approved by the U.S. Food and Drug Administration. ??The FDA has determined that such clearance or approval is not necessary. ??This test is used for clinical purposes. ??It should not be regarded as investigational or for research. ??[facility] Laboratory is certified under the [...] PATHOLOGY ORDERABLES Final Result Performing Organization Address City/[facility]/ZIP Co de Phone Number PATHOLOGY [facility] Laboratory Receiving [address] [place] [address] * POCT glucose (06/19/2020 5:02 PM CDT) Glucose, POC 71 70 - 140 mg/dL [facility] Comment: For Glucose values <35 mg/dl when Hematocrit is >60 mg/dl,the test may not accurately detect significant hypoglycemia,and testing in the Laboratory should be considered if clinically indicated. Blood specimen (specimen) 06/19/2020 5:02 PM CDT 06/19/2020 5:02 PM CDT Result [facility] Summer Anguiano MD LAB POCT ORDERABLES - DEVIC E Final Result Performing Organization Address [facility] Co de Phone Number [facility] [address] [place] [address] * (ABNORMAL) POCT glucose (06/19/2020 4:54 PM CDT) Glucose, POC 65(L) 70 - 140 mg/dL [facility] Comment: For Glucose values <35 mg/dl when Hematocrit is >60 mg/dl,the test may not accurately detect significant hypoglycemia,and testing in the Laboratory should be considered if clinically indicated. Blood specimen (specimen) 06/19/2020 4:54 PM CDT 06/19/2020 4:54 PM CDT Result [facility] Summer Anguiano MD LAB POCT ORDERABLES - DEVIC E Final Result Performing Organization Address [facility]/ZIP Co de Phone Number [facility] [address] Department [place] [address] * Vancomycin level trough Please draw trough at this specific time. (06/19/2020 3:32 PM CDT) Pathologist [facility] Vancomycin trough 15.7 10.0 - 20.0 mcg/mL [facility] Comment: Interpretive Data ?Therapeutic Range: Uncomplicated skin and soft tissue infections: 10-20 mcg/mL All other infections: 15-20 mcg/mL Current Interpretive Data was last revised on 2020. Blood specimen (specimen) 06/19/2020 3:32 PM CDT 06/19/2020 3:32 PM CDT Narrative [facility] - 06/19/2020 3:59 PM CDT Please draw trough at this specific time. Summer Anguiano MD LAB BLOOD ORDERABLES Final Result Performing Organization Address [facility]/ZIP Co de Phone Number [facility] [address] Department [place] [address] * POCT glucose (06/19/2020 11:34 AM CDT) [facility] Glucose, POC 83 70 - 140 mg/dL [facility] Comment: For Glucose values <35 mg/dl when Hematocrit is >60 mg/dl,the test may not accurately detect significant hypoglycemia,and testing in the Laboratory should be considered if clinically indicated. Blood specimen (specimen) 06/19/2020 11:34 AM CDT 06/19/2020 11:34 AM CDT Summer Anguiano MD LAB POCT ORDERABLES - DEVIC E Final Result Performing Organization Address [facility]/ZIP Co de Phone Number [facility] [address] Department [place] [address] * (ABNORMAL) Urinalysis, microscopic only (06/19/2020 8:14 AM CDT) WBC, ur 21-50(A) 0 - 5 /HPF [facility] RBC, ur 21-50(A) 0 - 2 /HPF [facility] Epithelial cells, squamous, ur 1-5 0 - 5 /HPF [facility] Bacteria, ur 4+(A) [facility] Yeast, ur 3+(A) [facility] Culture Reflex Comment Reflex to urine culture will be performed. [facility] Urine 06/19/2020 8:14 AM CDT 06/19/2020 8:14 AM CDT Tanisha Bundy MD LAB URINE ORDERABLES Final Result [facility] [address] [place] [address] * (ABNORMAL) Urinalysis reflex to microscopic and culture Urine (06/19/2020 8:14 AM CDT) Color, ur Yellow Yellow [facility] Clarity, ur Turbid(A) Clear [facility] Specific gravity, ur 1.015 1.010 - 1.025 [facility] pH, urine 6.0 [facility] Protein, ur ql 1+(A) Negative [facility] Glucose, ur ql Negative Negative [facility] Ketones, ur Negative Negative [facility] Bilirubin, ur Negative Negative [facility] Blood, ur 2+(A) Negative [facility] Urobilinogen, ur <2.0 <2.0 mg/dL [facility] Nitrite, ur Negative Negative [facility] Leukocyte esterase, ur 3+(A) Negative [facility] UA reflex comment Reflex to microscopic UA will be performed. [facility] Urine 06/19/2020 8:14 AM CDT 06/19/2020 8:14 AM CDT Narrative [facility] - 06/19/2020 9:09 AM CDT ?? Urine pH is affected by diet, medications, systemic acid-base disturbances, and renal tubular function. ??pH may affect urinary stone formation. ??For example, urine pH below 6.0 may help reduce the tendency for calcium phosphate stones and pH greater than 6.0 may reduce the tendency for uric acid stone formation. Source: [facility]. Last revised 03-23-2017 Tanisha Bundy MD LAB MICROBIOLOGY - GENERAL ORDERABLES Final Result Performing Organization Address [facility] Co de Phone Number [facility] [address] [place] [address] * (ABNORMAL) Urine culture Urine (06/19/2020 8:14 AM CDT) Report Final Report: Growth indicates contamination with gram-positive alana. (.) [facility] Organism GROWTH INDICATES CONTAMINATION WITH GRAM-POS ALANA [facility] Urine 06/19/2020 8:14 AM CDT 06/19/2020 9:17 AM CDT Narrative [facility] - 06/20/2020 9:41 AM CDT Urine culture reflexed based upon urinalysis results. Tanisha Bundy MD LAB MICROBIOLOGY - GENERAL ORDERABLES Final Result Performing Organization Address [facility] Co de Phone Number [facility] [address] Department [place] [address] * COVID-19 Coronavirus antigen Nasopharyngeal (06/19/2020 8:04 AM CDT) COVID-19 Ag Presumptive Negative Presumptive Negative [facility] Comment: Interpretive data: Testing was performed under Emergency Use Authorization using the [employer] Veritor System for detection of SARS-CoV-2 [...] modified April 2020. First COVID-19 test? 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 Unknown [facility] status? Unknown [facility] Group care resident? Unknown [facility] Hospitalized? Unknown [facility] Is patient in ICU? Unknown [facility] Symptomatic as defined by CDC? Unknown [facility] Nasopharyngeal 06/19/2020 8: 04 AM CDT 06/19/2020 8:36 AM CDT Summer Anguiano MD LAB MICROBIOLOGY - GENERAL ORDERABLES Final Result Performing Organization Address City/[facility]/ZIP Co de Phone Number [facility] [address] [place] [address] * (ABNORMAL) POCT glucose (06/19/2020 5:56 AM CDT) [facility] Glucose, POC 206(H) 70 - 140 mg/dL [facility] Comment: For Glucose values <35 mg/dl when Hematocrit is >60 mg/dl,the test may not accurately detect significant hypoglycemia,and testing in the Laboratory should be considered if clinically indicated. Blood specimen (specimen) 06/19/2020 5:56 AM CDT 06/19/2020 5:56 AM CDT Summer Anguiano MD LAB POCT ORDERABLES - DEVIC E Final Result [facility] [address] [place] [address] * eGFR (06/19/2020 5:50 AM CDT) [facility] eGFR 94 mL/min/1.7 3 m2 [facility] Comment: Interpretive Data Reference Interval Normal ?>/= [...] Anguiano MD LAB BLOOD ORDERABLES Final Result [facility] [address] [place] [address] * Basic metabolic panel (06/19/2020 5:50 AM CDT) [facility] Sodium 135 135 - 145 mmol/L [facility] Potassium, pl 3.9 3.3 - 4.9 mmol/L [facility] Comment:Hemolyzed; potassium value may be falsely elevated by as much as 0.3 - 0.5 mmol/L. Suggest redraw and reanalysis Chloride 97 97 - 110 mmol/L [facility] CO2 30 22 - 32 mmol/L [facility] Anion gap 8 2 - 15 mmol/L [facility] BUN 16 8 - 25 mg/dL [facility] Creatinine 0.63 0.60 - 1.10 mg/dL [facility] Glucose 184 70 - 199 mg/dL [facility] Comment: Interpretive Data Fasting glucose >/= 126 [...] 2017. Calcium 8.6 8.5 - 10.3 mg/dL [facility] Blood specimen (specimen) 06/19/2020 5:50 AM CDT 06/19/2020 6:13 AM CDT us Summer Anguiano MD LAB BLOOD ORDERABLES Final Result Performing Organization Address [facility] Co de Phone Number [facility] [address] [place] [address] * (ABNORMAL) POCT glucose (06/18/2020 8:59 PM CDT) [facility] Signature Glucose, POC 251(H) 70 - 140 mg/dL [facility] Comment: For Glucose values <35 mg/dl when Hematocrit is >60 mg/dl,the test may not accurately detect significant hypoglycemia,and testing in the Laboratory should be considered if clinically indicated. Blood specimen (specimen) 06/18/2020 8:59 PM CDT 06/18/2020 8:59 PM CDT us Summer Anguiano MD LAB POCT ORDERABLES - DEVIC E Final Result Performing Organization Address [facility] Co de Phone Number [facility] [address] [facility] [place] [address] * (ABNORMAL) POCT glucose (06/18/2020 4:52 PM CDT) Glucose, POC 210(H) 70 - 140 mg/dL [facility] Comment: For Glucose values <35 mg/dl when Hematocrit is >60 mg/dl,the test may not accurately detect significant hypoglycemia,and testing in the Laboratory should be considered if clinically indicated. Blood specimen (specimen) 06/18/2020 4:52 PM CDT 06/18/2020 4:52 PM CDT Summer Anguiano MD LAB POCT ORDERABLES - DEVIC E Final Result Performing Organization Address [facility] de Phone Number [facility] [address] [place] [address] * (ABNORMAL) POCT glucose (06/18/2020 11:27 AM CDT) Glucose, POC 177(H) 70 - 140 mg/dL [facility] Comment: For Glucose values <35 mg/dl when Hematocrit is >60 mg/dl,the test may not accurately detect significant hypoglycemia,and testing in the Laboratory should be considered if clinically indicated. Blood specimen (specimen) 06/18/2020 11:27 AM CDT 06/18/2020 11:27 AM CDT Summer Anguiano MD LAB POCT ORDERABLES - DEVIC E Final Result Performing Organization Address [facility] Co de Phone Number [facility] [address] [place] [address] * (ABNORMAL) POCT glucose (06/18/2020 6:23 AM CDT) Glucose, POC 181(H) 70 - 140 mg/dL [facility] Comment: For Glucose values <35 mg/dl when Hematocrit is >60 mg/dl,the test may not accurately detect significant hypoglycemia,and testing in the Laboratory should be considered if clinically indicated. Blood specimen (specimen) 06/18/2020 6:23 AM CDT 06/18/2020 6:23 AM CDT Result [facility] Summer Anguiano MD LAB POCT ORDERABLES - DEVIC E Final Result Performing Organization Address [facility] Co de Phone Number [facility] [address] [facility] [place] [address] * (ABNORMAL) T4, free (06/18/2020 5:43 AM CDT) Free T4 0.11(L) 0.90 - 1.70 ng/dL [facility] Blood specimen (specimen) 06/18/2020 5:43 AM CDT 06/18/2020 6:23 AM CDT Narrative [facility] - 06/18/2020 7:18 AM CDT This test was reflexed from a TSH result. Summer Anguiano MD LAB BLOOD ORDERABLES Final Result Performing Organization Address [facility] de Phone Number [facility] [address] [facility] [place] [address] * (ABNORMAL) TSH reflex to free T4 (06/18/2020 5:43 AM CDT) TSH 19.29(H) 0.30 - 4.20 mcIUnit/mL [facility] Blood specimen (specimen) 06/18/2020 5:43 AM CDT 06/18/2020 6:23 AM CDT Result [facility] Summer Anguiano MD LAB BLOOD ORDERABLES Final Result Performing Organization Address [facility] Co de Phone Number [facility] [address] Department [place] [address] * (ABNORMAL) Hemoglobin A1c (06/18/2020 5:43 AM CDT) Hgb A1C 8.0(H) 4.0 - 5.6 % [facility] Estimated Average Glucose 183 mg/dL [facility] Comment: The ADA recommends reporting an estimated Average Glucose (eAG) with all Hemoglobin A1c results using the equation derived from a study of 507 normal and diabetic adults. ??Minority populations were underrepresented and children were not included. ?? (Diabetes Care 31:5675-2613, 2008). ??The eAG is not equivalent to a fasting glucose. Blood specimen (specimen) 06/18/2020 5:43 AM CDT 06/18/2020 6:23 AM CDT Summer Anguiano MD LAB BLOOD ORDERABLES Final Result Performing Organization Address [facility] Co de Phone Number [facility] [address] [employer] [place], [place] [id number] * (ABNORMAL) POCT glucose (06/17/2020 10:22 PM CDT) Pathologist [facility] Glucose, POC 270(H) 70 - 140 mg/dL [facility] Comment: For Glucose values <35 mg/dl when Hematocrit is >60 mg/dl,the test may not accurately detect significant hypoglycemia,and testing in the Laboratory should be considered if clinically indicated. Blood specimen (specimen) 06/17/2020 10:22 PM CDT 06/17/2020 10:22 PM CDT Summer Anguiano MD LAB POCT ORDERABLES - DEVIC E Final Result Performing Organization Address [facility]/ZIP Co de Phone Number [facility] [address] [place] [address] * CTA Abdominal Aorta And Bilateral Iliofemoral [...] CONTRAST HISTORY: Left foot osteomyelitis, prior right wrwgf-whw-zhxn amputation. TECHNIQUE: CT angiography of the abdomen, [...] CONTRAST HISTORY: Left foot osteomyelitis, prior right lgszq-zwr-erhc amputation. TECHNIQUE: CT angiography of the abdomen, [...] Electronically signed by: Madison Valle M.D. Result [facility] Summer Anguiano MD IMG CT PROCEDURES Final Res ult * (ABNORMAL) POCT glucose (06/17/2020 4:51 PM CDT) Glucose, POC 167(H) 70 - 140 mg/dL [facility] Comment: For Glucose values <35 mg/dl when Hematocrit is >60 mg/dl,the test may not accurately detect significant hypoglycemia,and testing in the Laboratory should be considered if clinically indicated. Blood specimen (specimen) 06/17/2020 4:51 PM CDT 06/17/2020 4:51 PM CDT Result [facility] Summer Anguiano MD LAB POCT ORDERABLES - DEVIC E Final Result Performing Organization Address [facility] Co de Phone Number [facility] [address] Department [place] [address] * Blood culture Blood (06/17/2020 4:26 PM CDT) Report Final Report: No growth [facility] Blood specimen (specimen) 06/17/2020 4:26 PM CDT 06/17/2020 4:43 PM CDT Narrative [facility] - 06/23/2020 7:01 AM CDT From a different site than #1. Result [facility] Summer Anguiano MD LAB MICROBIOLOGY - GENERAL ORDERABLES Final Result Performing Organization Address City/[facility]/ZIP Co de Phone Number [facility] [address] Department [place] [address] * Blood culture Blood (06/17/2020 4:26 PM CDT) Report Final Report: No growth [facility] Blood specimen (specimen) 06/17/2020 4:26 PM CDT 06/17/2020 4:43 PM CDT Result [facility] Summer Anguiano MD LAB MICROBIOLOGY - GENERAL ORDERABLES Final Result Performing Organization Address [facility] Co de Phone Number [facility] [address] [place] [address] * (ABNORMAL) POCT glucose (06/17/2020 11:57 AM CDT) Glucose, POC 150(H) 70 - 140 mg/dL [facility] Comment: For Glucose values <35 mg/dl when Hematocrit is >60 mg/dl,the test may not accurately detect significant hypoglycemia,and testing in the Laboratory should be considered if clinically indicated. Blood specimen (specimen) 06/17/2020 11:57 AM CDT 06/17/2020 11:57 AM CDT Summer Anguiano MD LAB POCT ORDERABLES - DEVIC E Final Result Performing Organization Address [facility] de Phone Number [facility] [address] [place] [address] * US ZAYNAB (06/17/2020 10:41 AM CDT) Anatomical Region Laterality Modality Vascular N/A Ultrasound 06/17/2020 6:15 PM CDT Impressions 06/17/2020 6:15 PM CDT 1. ??The patient has a right aycap-otd-tdth amputation. No studies were done on this [...] foot pain. The patient has a right ktfpy-got-jldv amputation. Right side: The patient has a right nqbtb-jxx-yxpr amputation Left side: The brachial pressure is [...] foot pain. The patient has a right rmrif-vfu-ddbh amputation. Right side: The patient has a right vwbok-shk-eerm amputation Left side: The brachial pressure is [...] IMPRESSION: 1. The patient has a right fstpz-ixs-qeog amputation. No studies were done on this [...] by: Franco Martinez M.D. Lisa Pradhan MD [facility] PROCEDURES Final Result * (ABNORMAL) POCT glucose (06/17/2020 6:45 AM CDT) [facility] Glucose, POC 185(H) 70 - 140 mg/dL [facility] Comment: For Glucose values <35 mg/dl when Hematocrit is >60 mg/dl,the test may not accurately detect significant hypoglycemia,and testing in the Laboratory should be considered if clinically indicated. Blood specimen (specimen) 06/17/2020 6:45 AM CDT 06/17/2020 6:45 AM CDT us Summer Anguiano MD LAB POCT ORDERABLES - DEVIC E Final Result [facility] [address] [place] [address] * eGFR (06/17/2020 6:37 AM CDT) eGFR 68 mL/min/1.7 3 m2 [facility] Comment: Interpretive Data Reference Interval Normal ?>/= [...] Bundy MD LAB BLOOD ORDERABLES Final Result [facility] [address] [place] [address] * (ABNORMAL) Differential, auto (06/17/2020 6:37 AM CDT) Neutrophil abs 5.3 1.7 - 6.5 K/cumm [facility] Imm gran abs 0.0 0.0 - 0.1 K/cumm [facility] Lymphocyte abs 0.6(L) 0.8 - 3.3 K/cumm [facility] Monocyte abs 0.4 0.2 - 0.8 K/cumm [facility] Eosinophil abs 0.0 0.0 - 0.5 K/cumm [facility] Basophil abs 0.0 0.0 - 0.1 K/cumm [facility] Neutrophil pct 83.2 % [facility] Comment: Interpretive Data Percent cell count reference ranges are not reported, since discordance with absolute values may lead to misinterpretation of CBC data. Current Interpretive Data was last revised on 2017. Imm gran pct 0.5 % [facility] Comment: Interpretive Data Percent cell count reference ranges are not reported, since discordance with absolute values may lead to misinterpretation of CBC data. Current Interpretive Data was last revised on 2017. Lymphocyte pct 10.1 % [facility] Comment: Interpretive Data Percent cell count reference ranges are not reported, since discordance with absolute values may lead to misinterpretation of CBC data. Current Interpretive Data was last revised on 2017. Monocyte pct 5.7 % [facility] Comment: Interpretive Data Percent cell count reference ranges are not reported, since discordance with absolute values may lead to misinterpretation of CBC data. Current Interpretive Data was last revised on 2017. Eosinophil pct 0.0 % [facility] Comment: Interpretive Data Percent cell count reference ranges are not reported, since discordance with absolute values may lead to misinterpretation of CBC data. Current Interpretive Data was last revised on 2017. Basophil pct 0.5 % [facility] Comment: Interpretive Data Percent cell count reference ranges are not reported, since discordance with absolute values may lead to misinterpretation of CBC data. Current Interpretive Data was last revised on 2017. Blood specimen (specimen) 06/17/2020 6:37 AM CDT 06/17/2020 7:19 AM CDT Tanisha Bundy MD LAB BLOOD ORDERABLES Final Result Performing Organization Address [facility] Co de Phone Number [facility] [address] [facility] [place] [address] * aPTT (06/17/2020 6:37 AM CDT) aPTT 32 27 - 37 sec [facility] Comment: Interpretive Data Therapeutic heparin range: 60.0 - 94.0 seconds. Based on correlation with therapeutic heparin activity range of 0.3-0.7 Units/mL. Current interpretive data was last revised on 2020. Blood specimen (specimen) 06/17/2020 6:37 AM CDT 06/17/2020 7:20 AM CDT Tanisha Bundy MD LAB BLOOD ORDERABLES Final Result Performing Organization Address [facility] Co de Phone Number [facility] [address] [facility] [place] [address] * (ABNORMAL) Protime-INR (06/17/2020 6:37 AM CDT) PT 14.1(H) 9.5 - 13.6 sec [facility] INR 1.3(H) 0.9 - 1.2 [facility] Comment: Interpretive data Oral anticoagulant therapeutic ranges: Venous thromboembolism prophylaxis or treatment: 2.0-3.0 CARDIOLOGY Standard range: 2.0-3.0 High-intensity range: 2.5-3.5 Refer to indication-specific guidelines for appropriate target ranges for prosthetic heart valve replacement. Current interpretive data was last revised on 2019. Blood specimen (specimen) 06/17/2020 6:37 AM CDT 06/17/2020 7:20 AM CDT Tanisha Bundy MD LAB BLOOD ORDERABLES Final Result Performing Organization Address [facility]/ZIP Co de Phone Number [facility] [address] [employer] [place] [address] * (ABNORMAL) CBC with auto differential (06/17/2020 6:37 AM CDT) Pathologist [facility] WBC 6.4 3.8 - 9.9 K/cumm [facility] Hgb 9.8(L) 11.9 - 15.5 g/dL [facility] Hct 29.9(L) 35.6 - 45.5 % [facility] Plt 209 150 - 400 K/cumm [facility] MPV 9.8 9.1 - 12.3 fL [facility] RBC 3.09(L) 3.90 - 5.20 M/cumm [facility] MCV 96.8(H) 81.3 - 96.4 fL [facility] MCH 31.7 27.1 - 33.3 pg [facility] MCHC 32.8 32.3 - 35.7 g/dL [facility] RDW CV 15.0(H) 11.1 - 14.9 % [facility] RDW SD 53.1(H) 35.7 - 48.1 fL [facility] NRBC abs 0.00 0.00 - 0.01 K/cumm [facility] Blood specimen (specimen) 06/17/2020 6:37 AM CDT 06/17/2020 7:19 AM CDT Tanisha Bundy MD LAB BLOOD ORDERABLES Final Result [facility] [address] Department [place] [address] * Phosphorus (06/17/2020 6:37 AM CDT) Pathologist [facility] Phosphorus, pl 3.5 2.3 - 4.5 mg/dL [facility] Blood specimen (specimen) 06/17/2020 6:37 AM CDT 06/17/2020 7:35 AM CDT Tanisha Bundy MD LAB BLOOD ORDERABLES Final Result Performing Organization Address [facility] Co de Phone Number [facility] [address] Department [place] [address] * Magnesium (06/17/2020 6:37 AM CDT) Pathologist [facility] Magnesium 1.8 1.4 - 2.5 mg/dL [facility] Blood specimen (specimen) 06/17/2020 6:37 AM CDT 06/17/2020 7:35 AM CDT Tanisha Bundy MD LAB BLOOD ORDERABLES Final Result Performing Organization Address [facility] de Phone Number [facility] [address] Department [place] [address] * (ABNORMAL) Comprehensive metabolic panel (06/17/2020 6:37 AM CDT) [facility] Sodium 136 135 - 145 mmol/L [facility] Potassium, pl 3.1(L) 3.3 - 4.9 mmol/L [facility] Chloride 95(L) 97 - 110 mmol/L [facility] CO2 32 22 - 32 mmol/L [facility] Anion gap 9 2 - 15 mmol/L [facility] BUN 18 8 - 25 mg/dL [facility] Creatinine 0.89 0.60 - 1.10 mg/dL [facility] Glucose 170 70 - 199 mg/dL [facility] Comment: Interpretive Data Fasting glucose >/= 126 [...] 2017. Calcium 8.6 8.5 - 10.3 mg/dL [facility] Bilirubin, total 0.6 0.1 - 1.2 mg/dL [facility] Protein, pl 7.0 6.5 - 8.5 g/dL [facility] Albumin 3.5 3.5 - 5.0 g/dL [facility] Alk phos 27(L) 40 - 130 Units/L [facility] ALT 25 7 - 45 Units/L [facility] AST 33 10 - 45 Units/L [facility] Blood specimen (specimen) 06/17/2020 6:37 AM CDT 06/17/2020 7:35 AM CDT Tanisha Bundy MD LAB BLOOD ORDERABLES Final Result Performing Organization Address [facility] Co de Phone Number [facility] [address] [employer] [place], [place] [id number] * (ABNORMAL) POCT glucose (06/16/2020 10:32 PM CDT) Glucose, POC 185(H) 70 - 140 mg/dL [facility] Comment: For Glucose values <35 mg/dl when Hematocrit is >60 mg/dl,the test may not accurately detect significant hypoglycemia,and testing in the Laboratory should be considered if clinically indicated. Blood specimen (specimen) 06/16/2020 10:32 PM CDT 06/16/2020 10:32 PM CDT us Tanisha Bundy MD LAB POCT ORDERABLES - GILMA CE Final Result Performing Organization Address City/[facility]/ZIP Co de Phone Number [facility] [address] Department of [employer] [place], [place] [id number] * (ABNORMAL) POCT glucose (06/16/2020 8:41 PM CDT) Glucose, POC 213(H) 70 - 140 mg/dL [facility] Comment: For Glucose values <35 mg/dl when Hematocrit is >60 mg/dl,the test may not accurately detect significant hypoglycemia,and testing in the Laboratory should be considered if clinically indicated. Blood specimen (specimen) 06/16/2020 8:41 PM CDT 06/16/2020 8:41 PM CDT Tanisha Bundy MD LAB POCT ORDERABLES - GILMA CE Final Result [facility] [address] Department [place] [address] * CT Head WO Contrast (06/16/2020 5:53 [...] panel Nasopharyngeal (06/16/2020 5:33 PM CDT) Pathologist [facility] Influenza A RNA Not Detected Not Detected [facility] Influenza B RNA Not Detected Not Detected [facility] RSV RNA Not Detected Not Detected [facility] COVID-19 RNA Not Detected Not Detected [facility] Coronavirus 229E RNA Not Detected Not Detected [facility] Coronavirus HKU1 RNA Not Detected Not Detected [facility] Coronavirus NL63 RNA Not Detected Not Detected [facility] Coronavirus OC43 RNA Not Detected Not Detected [facility] Adenovirus DNA Not Detected Not Detected [facility] Metapneumovirus RNA Not Detected Not Detected [facility] Rhinovirus/Enterov irus RNA Not Detected Not Detected [facility] Parainfluenza 1 RNA Not Detected Not Detected [facility] Parainfluenza 2 RNA Not Detected Not Detected [facility] Parainfluenza 3 RNA Not Detected Not Detected [facility] Parainfluenza 4 RNA Not Detected Not Detected [facility] B. pertussis DNA Not Detected Not Detected [facility] B. parapertussis DNA Not Detected Not Detected [facility] C. pneumoniae DNA Not Detected Not Detected [facility] M. pneumoniae DNA Not Detected Not Detected [facility] Comment: The [employer] FilmArray Respiratory Panel (RP2.1) assay is a [...] authorization from the FDA for testing of RECIPROCATING DRILL OPERATOR swabs. ??The performance characteristics of this assay have been determined by [facility]. Current interpretive data was last revised on 2019. Employeed in healthcare? No [facility] status? No [facility] Group care resident? No [facility] Hospitalized? No [facility] Is patient in ICU? No [facility] Symptomatic as defined by CDC? Unknown [facility] Nasopharyngeal 06/16/2020 5: 33 PM CDT 06/16/2020 5:38 PM CDT Narrative [facility] - 06/16/2020 6:30 PM CDT Reason for testing?->Symptomatic (immunocompromised) Known exposure to confirmed or suspected COVID-19 case?->No Surveillance testing for transplant patient?->No Preeti Barr MD LAB MICROBIOLOGY - GENERA L ORDERABLES Final Result Performing Organization Address [facility] Co de Phone Number [facility] [address] Department [place] [address] * (ABNORMAL) POCT glucose (06/16/2020 4:39 PM CDT) [facility] Glucose, POC 228(H) 70 - 140 mg/dL [facility] Comment: For Glucose values <35 mg/dl when Hematocrit is >60 mg/dl,the test may not accurately detect significant hypoglycemia,and testing in the Laboratory should be considered if clinically indicated. Blood specimen (specimen) 06/16/2020 4:39 PM CDT 06/16/2020 4:39 PM CDT Preeti Barr MD LAB POCT ORDERABLES - DEV ICE Final Result Performing Organization Address City/[facility]/ZIP Co de Phone Number [facility] [address] Department [place] [address] * XR Foot Left 3 or More [...] test (06/16/2020 2:02 PM CDT) Acceptable Yes [facility] Blood specimen (specimen) 06/16/2020 2:02 PM CDT 06/16/2020 2:02 PM CDT Narrative [facility] - 06/16/2020 2:02 PM CDT Name of Test->ESR Preeti Barr MD LAB BLOOD ORDERABLES Debbie l Result Performing Organization Address [facility]/ZIP Co de Phone Number [facility] [address] [employer] [place], [place] [id number] * CRP High sensitivity - Add on lab test (06/16/2020 1:50 PM CDT) Acceptable Yes [facility] Blood specimen (specimen) 06/16/2020 1:50 PM CDT 06/16/2020 2:00 PM CDT Narrative [facility] - 06/16/2020 2:00 PM CDT Name of Test->CRP High sensitivity Preeti Barr MD LAB BLOOD ORDERABLES Debbie l Result [facility] [address] [employer] [place], [place] [id number] * (ABNORMAL) Erythrocyte sedimentation rate (06/16/2020 1:18 PM CDT) Erythrocyte sedimentation rate 95(H) 1 - 30 mm/hr [facility] Blood specimen (specimen) 06/16/2020 1:18 PM CDT 06/16/2020 1:26 PM CDT us Notinfile Unknown LAB BLOOD ORDERABLES Final Res ult Performing Organization Address [facility] de Phone Number [facility] [address] [facility] [place] [address] * CRP (cardiac risk) (06/16/2020 1:18 PM CDT) Pathologist [facility] hsCRP 85.17 mg/L [facility] Comment: Interpretive data Adult only - values [...] ORDERABLES Final Res ult Performing Organization Address [facility] de Phone Number [facility] [address] Department [place] [address] * eGFR (06/16/2020 1:18 PM CDT) Pathologist [facility] eGFR 86 mL/min/1.7 3 m2 [facility] Comment: Interpretive Data Reference Interval Normal ?>/= [...] MD LAB BLOOD ORDERABLES Final R esult [facility] [address] Department [place] [address] * Differential, auto (06/16/2020 1:18 PM CDT) Neutrophil abs 5.4 1.7 - 6.5 K/cumm [facility] Imm gran abs 0.1 0.0 - 0.1 K/cumm [facility] Lymphocyte abs 0.8 0.8 - 3.3 K/cumm [facility] Monocyte abs 0.5 0.2 - 0.8 K/cumm [facility] Eosinophil abs 0.2 0.0 - 0.5 K/cumm [facility] Basophil abs 0.0 0.0 - 0.1 K/cumm [facility] Neutrophil pct 77.2 % [facility] Comment: Interpretive Data Percent cell count reference ranges are not reported, since discordance with absolute values may lead to misinterpretation of CBC data. Current Interpretive Data was last revised on 2017. Imm gran pct 0.9 % [facility] Comment: Interpretive Data Percent cell count reference ranges are not reported, since discordance with absolute values may lead to misinterpretation of CBC data. Current Interpretive Data was last revised on 2017. Lymphocyte pct 11.7 % [facility] Comment: Interpretive Data Percent cell count reference ranges are not reported, since discordance with absolute values may lead to misinterpretation of CBC data. Current Interpretive Data was last revised on 2017. Monocyte pct 7.1 % [facility] Comment: Interpretive Data Percent cell count reference ranges are not reported, since discordance with absolute values may lead to misinterpretation of CBC data. Current Interpretive Data was last revised on 2017. Eosinophil pct 2.5 % [facility] Comment: Interpretive Data Percent cell count reference ranges are not reported, since discordance with absolute values may lead to misinterpretation of CBC data. Current Interpretive Data was last revised on 2017. Basophil pct 0.6 % [facility] Comment: Interpretive Data Percent cell count reference ranges are not reported, since discordance with absolute values may lead to misinterpretation of CBC data. Current Interpretive Data was last revised on 2017. Blood specimen (specimen) 06/16/2020 1:18 PM CDT 06/16/2020 1:26 PM CDT Sam Rosenberg MD LAB BLOOD ORDERABLES Final R esult [facility] [address] Department [place] [address] * Blood culture Blood (06/16/2020 1:18 PM CDT) Report Final Report: No growth [facility] Blood specimen (specimen) 06/16/2020 1:18 PM CDT 06/16/2020 1:32 PM CDT Narrative [facility] - 06/22/2020 7:00 AM CDT From a different site than #1. us Preeti Barr MD LAB MICROBIOLOGY - GENERA L ORDERABLES Final Result Performing Organization Address [facility]/ZIP Co de Phone Number [facility] [address] [facility] [employer] [place], [place] [phone] * (ABNORMAL) Blood culture Blood (06/16/2020 1:18 PM CDT) Pathologist [facility] Direct Specimen Exam Stain: Gram positive cocci resembling Staph Test result called to and read back by LEANNE DUARTE RN on 06/17/2020 15:12:57 by JERZY [facility] Report Final Report: Coagulase negative Staphylococcus species Isolate may represent contamination. ??Susceptibility not reported. ??Please call the Microbiology Lab if susceptibility testing is clinically indicated. (.) [facility] Blood specimen (specimen) 06/16/2020 1:18 PM CDT 06/16/2020 1:32 PM CDT Preeti Barr MD LAB MICROBIOLOGY - GENERA L ORDERABLES Final Result Performing Organization Address [facility]/ZIP Co de Phone Number [facility] [address] Department [employer] [place], [place] [id number] * Sepsis Lactate w/ Reflex (06/16/2020 1:18 PM CDT) [facility] Sepsis Lactate 1.9 0.7 - 2.0 mmol/L [facility] Blood specimen (specimen) 06/16/2020 1:18 PM CDT 06/16/2020 1:25 PM CDT Preeti Barr MD LAB BLOOD ORDERABLES Debbie l Result Performing Organization Address City/[facility]/ZIP Co de Phone Number [facility] [address] [facility] [employer] [place], [place] [phone] * (ABNORMAL) Comprehensive metabolic panel (06/16/2020 1:18 PM CDT) Pathologist [facility] Sodium 135 135 - 145 mmol/L [facility] Potassium, pl 4.1 3.3 - 4.9 mmol/L [facility] Comment:Hemolyzed; potassium value may be falsely elevated by as much as 0.6 - 1.0 mmol/L. Suggest redraw and reanalysis Chloride 93(L) 97 - 110 mmol/L [facility] CO2 32 22 - 32 mmol/L [facility] Anion gap 10 2 - 15 mmol/L [facility] BUN 15 8 - 25 mg/dL [facility] Creatinine 0.73 0.60 - 1.10 mg/dL [facility] Glucose 228(H) 70 - 199 mg/dL [facility] Comment: Interpretive Data Fasting glucose >/= 126 [...] 2017. Calcium 9.1 8.5 - 10.3 mg/dL [facility] Bilirubin, total 0.9 0.1 - 1.2 mg/dL [facility] Protein, pl 7.5 6.5 - 8.5 g/dL [facility] Albumin 3.6 3.5 - 5.0 g/dL [facility] Alk phos 29(L) 40 - 130 Units/L [facility] ALT 29 7 - 45 Units/L [facility] Comment:Moderately Hemolyzed Specimen AST 48(H) 10 - 45 Units/L [facility] Comment:Moderately Hemolyzed Specimen Blood specimen (specimen) 06/16/2020 1:18 PM CDT 06/16/2020 1:25 PM CDT us Preeti Barr MD LAB BLOOD ORDERABLES Debbie marylu Result [facility] [address] Department [place] [address] * (ABNORMAL) CBC with auto differential (06/16/2020 1:18 PM CDT) [facility] WBC 6.9 3.8 - 9.9 K/cumm [facility] Hgb 11.4(L) 11.9 - 15.5 g/dL [facility] Hct 33.8(L) 35.6 - 45.5 % [facility] Plt 228 150 - 400 K/cumm [facility] MPV 9.4 9.1 - 12.3 fL [facility] RBC 3.62(L) 3.90 - 5.20 M/cumm [facility] MCV 93.4 81.3 - 96.4 fL [facility] MCH 31.5 27.1 - 33.3 pg [facility] MCHC 33.7 32.3 - 35.7 g/dL [facility] RDW CV 14.6 11.1 - 14.9 % [facility] RDW SD 50.2(H) 35.7 - 48.1 fL [facility] NRBC abs 0.00 0.00 - 0.01 K/cumm [facility] Blood specimen (specimen) 06/16/2020 1:18 PM CDT 06/16/2020 1:26 PM CDT us Preeti Barr MD LAB BLOOD ORDERABLES Debbie l Result [facility] [address] Department [place] [address] * (ABNORMAL) POCT glucose (06/16/2020 12:58 PM CDT) [facility] Glucose, POC 244(H) 70 - 140 mg/dL [facility] Comment: For Glucose values <35 mg/dl when Hematocrit is >60 mg/dl,the test may not accurately detect significant hypoglycemia,and testing in the Laboratory should be considered if clinically indicated. Blood specimen (specimen) 06/16/2020 12:58 PM CDT 06/16/2020 12:58 PM CDT us Notinfile Unknown LAB POCT ORDERABLES - DEVICE F inal Result [facility] [address] [place] [address] documented in this encounter Visit Diagnoses Diagnosis Gastrointestinal hemorrhage- Primary Unspecified, hemorrhage of gastrointestinal tract Other acute osteomyelitis of left foot (HCC) Encephalopathy acute Unspecified encephalopathy Hyperlipidemia, unspecified hyperlipidemia type Hypertension, unspecified type Type 2 diabetes mellitus with other specified complication, unspecified whether intermodal customer service insulin use (HCC) PVD (peripheral vascular disease) [...] Call MD for each episode of hypoglycemia. BELL CLEANER STATES GLUTOSE-15 CONTAINS GLUCOSE 40% W/W (50% [...] 5:14 PM CDT 4.5 g 200 mL/hr wqnehjaglski-mqeufmvmjj-cahkkieq (ZOSYN) 3.375 gram/50 mL in dextrose (premix) [...] 1 tablet (50 mcg total) by mouth derrick helper before breakfast Error 11/21/2019 06/16/[address] [...] mcg tablet Take 75 mcg by mouth derrick helper before breakfast Stop Taking at Discharge 06/26/2020 documented as of this encounter Historical Medications * This list may reflect changes made after this encounter. atorvastatin (LIPITOR) 40 mg tablet Take 1 tablet (40 mg total) by mouth daily amLODIPine (NORVASC) 10 mg tablet Take 1 tablet (10 mg total) by mouth daily levothyroxine (SYNTHROID) 75 mcg tablet Take 75 mcg by mouth derrick helper before breakfast 04/16/202 1 traMADoL (ULTRAM) 50 [...] Evelin Reaves RN) 08 (Given - Provider: Yaqueiln Telles, SPENCER)223 (Given - Provider: Gabriela Rader [...] Call MD for each episode of hypoglycemia. BELL CLEANER STATES GLUTOSE-15 CONTAINS GLUCOSE 40% W/W (50% [...] Call MD for each episode of hypoglycemia. BELL CLEANER STATES GLUTOSE-15 CONTAINS GLUCOSE 40% W/W (50% [...] documented as of this encounter Care Teams Surgical Dressing Maker Relationship Specialty Start Date End Date Zeke Puente MD [address] [place] [address] PCP - General 12/02/18 Damon Swanson DO [address] [place] [address] Medical Oncologist/Electronic Typesetting Machine Operator Hematology and Oncology 10/25/17 Karl Smith Jr., MD [address] [place] [address] Surgeon General Surgery 11/07/19 Arley Peña MD [address] [place] [address] Surgeon General Surgery 06/26/20 documented as of this encounter
--- OUTSIDE RECORDS SUMMARY | 2024-02-27 03:14 | XMS_ITS | Encounter Summary ---
Author Organization [facility] Healthcare Address [address] [place] [address] Care Team Providers Care Hr Consultant Name Role Phone Damon Swanson DO Unavailable [phone] Zeke Puente MD Primary Care Provider Sarah Baldwin MD, Karl N. Unavailable Encounter Details Date Type Department Care Team (Late st Contact Info) Description 06/19/2020 5:47 PM CDT Anesthesia Event [facility] Operating Room [facility] [place] [address] Nilay Santoyo DO [address] [place] [address] Anesthesia Record Procedure Summary Procedure Name Responsible [...] 06/19/20; Removal Time: 194006/19/201801 by Lesa Hawley, INTERNATIONAL EXCHANGE COORDINATOR 06/19/201940 by Lesa Hawley CRNA Peripheral IV [...] declined 06/17/2020 How often do you attend alevism or anglican serv ices? 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 Gender Identity Not on file Sexual Orientation Not on file documented as of this encounter OR Notes * Anesthesia Postprocedure Evaluation - Nilay Santoyo DO - 06/19/2020 8:56 PM CDT Patient: Iris Pascual Procedure Summary Date: 06/19/20 Room / Location: [facility] Anesthesia Start: 1746 Anesthesia Stop: [...] anesthesia Difficult airway: no Staff: Placed by: INTERNATIONAL EXCHANGE COORDINATOR: Lesa Hawley CRNA Airway prep: Preoxygenated: yes [...] Status: Pharmacy Complete Set By: Brina Swain [facility] at 06/16/2020 2:55 PM Status [...] Medication protocol when under care of a INTERNATIONAL EXCHANGE COORDINATOR Planned anesthesia: General Team communication plan: oral ET tube Induction: Induction: intravenous. Postoperative Plan: Postoperative administration opioids intended. No postoperative mechanical ventilation intended. Patient's planned disposition post procedure is Floor. Informed Consent: Discussed plan with INTERNATIONAL EXCHANGE COORDINATOR. Anesthesia plan and risks discussed with patient. [...] Procedure Name Priority Date/Time Associated Diagnosis Comments IN AN PROCEDURE PLACEHOLDER Routine 06/19/2020 6:28 PM CDT IN AN ELECTIVE ENDOTRACHEAL AIRWAY Routine 06/19/2020 6:28 PM CDT documented in this encounter Results * IN AN ELECTIVE ENDOTRACHEAL AIRWAY, IN AN PROCEDURE PLACEHOLDER (06/19/2020 6:28 PM CDT) Narrative Lesa Hawley CRNA - 06/19/2020 6:28 PM CDT Lesa Hawley CRNA ? 06/19/2020 ??6:29 PM Airway Patient location: OR Urgency: elective Date/time: 06/19/2020 6:02 PM Indications for airway management: anesthesia Difficult airway: no Staff: Placed by: INTERNATIONAL EXCHANGE COORDINATOR: Lesa Hawley CRNA Airway prep: Preoxygenated: yes [...] documented as of this encounter Care Teams Hr Consultant Relationship Specialty Start Date End Date Zeke Puente MD [address] [place] [address] PCP - General 12/02/18 Damon Swanson DO [address] [place] [address] Medical Oncologist/Animal Anatomist Hematology and Oncology 10/25/17 Karl Smith Jr., MD [address] [place] [address] Surgeon General Surgery 11/07/19 documented as of this encounter
--- OUTSIDE RECORDS SUMMARY | 2024-02-27 03:14 | XMS_ITS | Encounter Summary ---
Author Organization [facility] Healthcare Address [address] [place] [address] Care Team Providers Care Kapok Machine Operator Name Role Phone Kiki Damon ValeroTesha DO Unavailable [phone] Zeke Puente MD Primary Care Provider Sarah Baldwin MD, Karl N. Unavailable Reason for Visit * Reason Comments Leg Pain Encounter Details Date Type Department Care Team (Late st Contact Info) Description 06/19/2020 5:00 PM CDT - 06/19/2020 7:20 PM CDT Surgery [facility] Operating Room [address] [place] [id number] Arley Peña MD [address] [place] [address] AMPUTATION ABOVE KNEE-LEFT Surgery Details Date/Time Status Location OR Service Patient Class Case Class Case Type Trauma Case? 06/19/2020 5:00 PM Posted [facility] OPERATING ROOM OR General Surgery Inpatient Urgent [...] How often do you attend pentecostalism or baptist serv ices? 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 Subsequently, she was doing [...] asked the nursing staff to have the intermediate call me for postop care on the left AK stump. Job ID/VF Job ID: [id number] documented in this encounter Medications at Time of Discharge amLODIPine (NORVASC) 10 mg tablet Take 1 tablet (10 mg total) by mouth daily atorvastatin (LIPITOR) 40 mg tablet Take 1 tablet (40 mg total) by mouth daily levothyroxine (SYNTHROID) 100 mcg tablet Take 1 tablet (100 mcg total) by mouth cake former before breakfast 30 tablet 1 06/25/2020 gabapentin [...] 1 tablet (100 mcg total) by mouth cake former before breakfast 30 tablet 1 06/25/2020 oxyCODONE [...] Disposition Code Departure Means Destination Discharge to [facility] documented in this encounter Progress Notes [...] Continue with current plan Recommendation/Plan OT Recommendation Longterm Facility Education: Patient has been educated on [...] 06/24/20 Goal Start Date End Date OT [facility] [place] [facility] [place] -- Goal Details: Pt will complete toileting tasks and toilet transfer moderate assist Goal Start Date End Date OT [facility] [place] [facility] [place] 06/24/20 -- Goal Details: Pt will complete grooming tasks at sink moderate assist Goal Start Date End Date OT [facility] 3 06/24/20 -- Goal Details: Pt will complete UB dressing minimal assist Goal Start Date End Date OT [facility] 4 06/24/20 -- Goal Details: Pt [...] shares [facility] Patient engaged in conversation about holiday traditions and requested nichole music. Pain Assessment: Pre Treatment Pain Score (0-10): 0/10 Post Treatment Pain Score (0-10): 0/10 Pain Location: not applicable Pain Interventions: not applicable Clinical Progression: not assessed / not applicable Patient's Musical History: Instruments Played: no hx / wanted to learn violin Vocal Experience: hx in pentecostalism choir / enjoys singing Patient's Musical Preferences: Decade(s): 1970s Genres: easy listening, popular, Nichole music / no jazz Artists/Groups: none stated Psychosocial History: Family: one daughter, three sons, several grandchildren and great-grandchildren (ages 11 months - 11 years) 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) Leisure: watching television, coloring Yarsanism/Spiritual: Syn[employer] OBJECTIVE: Observed Behavior State: easy to [...] / therapeutic singing) Song 4: [place] (therapeutic singing / song discussion) Song 5: August [place] (therapeutic singing / song discussion) Song 6: [place] (therapeutic singing / song discussion) Song 7: [...] anxiety PLAN OF CARE: Multi-Disciplinary Problems (from [place] Music Therapy) Active Problems Problem: [facility] Start Date: 06/24/20 Goal Start Date End Date [facility] 1 06/24/20 -- Goal Details: Patient will increase pulmonary function by completing various exercises with SPO2 at=/> 92% or by increasing SPO2 by =/>1% in at least one music therapy session prior to discharge Goal Start Date End Date [facility] [place] [facility] [place] 06[place]24/20 -- Goal Details: Patient will [...] Moderate malnutrition (CMS/HCC) PVD (peripheral vascular disease) ([facility]) Anemia Hypothyroidism Hyperlipidemia Dementia (CMS/HCC) [...] Soft Diet effective now Question Answer Comment ([facility]) Diet type GI Diets GI: Esophageal Soft 06/23/20 1553 06/23/20 1120 Oral Nutrition Supplements Select Supplement: Glucerna Shake - Dodson 3 times daily Question: Select Supplement: Answer: Glucerna Shake - Dodson 06/23/20 1119 Anthropometrics Weight: 76.7 kg (169 [...] of Weight Used for Estimated Protein : [place] Protein Needs Based on g/k.5 Total Protein [...] PT. PT completed session w/ assistance of online banking specialist to maximize safety with all functional [...] this the discharge summary Recommendation/Plan PT Recommendation/Plan Longterm Facility Treatment/Interventions Balance Training;Bed mobility;Endurance training;Equipment eval/education;Functional [...] (from Physical Therapy) Active Problems Problem: [place] [facility] [place]: 06/24/20 Goal [...] bed<-->WC). Goal Start Date End Date PT [facility] [place] [facility] [place] 06/24/20 -- Goal Details: Pt will [...] mL 0.5-20 mL intra-catheter Q8H [facility] Harlan Salamanca MD 10 mL at 06/24/20 2105 ??? sodium chloride 0.9% flush 0.5-20 mL 0.5-20 mL intra-catheter PRN Harlan Salamanca MD ??? sodium chloride 0.9% flush 0.5-20 mL 0.5-20 mL intra-catheter Q8H [facility] Harlan Salamanca MD 10 mL at 06/25/20 [...] Problem: Gastrointestinal hemorrhage Active Problems: Moderate malnutrition ([facility]) PVD (peripheral vascular disease) ([facility]) Anemia Hypothyroidism Hyperlipidemia Dementia (CMS/HCC) Diabetes mellitus ([facility]/HCC) Hypertension Osteomyelitis of Left foot in the [...] with Lovenox stable for discharge. D/w social group worker- discharge planning underway Reagan Salinas MD 06/25/2020 [...] Continue with current plan Recommendation/Plan OT Recommendation Longterm Facility Education: Patient has been educated on [...] 06/24/20 Goal Start Date End Date OT [facility] [place] [facility] [place] 06/24/20 -- Goal Details: Pt will complete toileting tasks and toilet transfer moderate assist Goal Start Date End Date OT [facility] - [facility] 2 06/24/20 -- Goal Details: Pt will complete grooming tasks at sink moderate assist Goal Start Date End Date OT [facility] [place] [facility] [place] 06/24/20 -- Goal Details: Pt will complete UB dressing minimal assist Goal Start Date End Date OT [facility] [place] [facility] [place] 06/24/20 -- Goal Details: Pt will [...] soft tissue ulceration Electronically signed by: Navya Oliav M.D. CT Head WO Contrast Result Date: [...] a family friend. 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 Hospice staff completed bathing 2x/week. ceramic worker 4 hours day Monday-Monday that completed [...] this the discharge summary Recommendation/Plan OT Recommendation Longterm Facility OT Frequency 3-5x/wk Treatment/Interventions ADL/IADL retraining;Balance Training;Endurance training;Functional activity;Functional mobility training;Functional transfer training;Parent/caregiver training and education;Strengthening;Therapeutic activity;Therapeutic exercise OT Equipment Recommended (will continue to assess) Progress Progressing toward goals OT Evaluation Complete Yes Multi-Disciplinary Problems (from Occupational Therapy) Active Problems Problem: [place] [facility] [place] Date: 06/24/20 Goal Start Date End Date OT [facility] 1 06/24/20 -- Goal Details: Pt will complete toileting tasks and toilet transfer moderate assist Goal Start Date End Date OT [facility] 2 06/24/20 -- Goal Details: Pt will complete grooming tasks at sink moderate assist Goal Start Date End Date OT [facility] 3 06/24/20 -- Goal Details: Pt will complete UB dressing minimal assist Goal Start Date End Date OT [facility] 4 06/24/20 -- Goal Details: Pt [...] a family friend. Prior Function Level of [place] Needs assistance with ADLs;Dependent with homemaking;Dependent with functional transfers Lives With Daughter;Family Receives Help From Family;door and arrival attendant (Pt has choreworker 4hr/day Mon-Fri. 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 Hospice staff completed bathing 2x/week. ceramic worker 4 hours day Monday-Monday that completed [...] safely transfer back to bed when needed. Printer Apprentice was also contacted and will be available to assist nursing as able with transfers and can further guide staffing associate with pt safety. Pain Assessment Pain Assessment [...] this the discharge summary Recommendation/Plan PT Recommendation/Plan Longterm Facility PT Frequency 3-5x/wk Treatment/Interventions Balance Training;Bed [...] (from Physical Therapy) Active Problems Problem: [place] [facility] [place]: 06/24/20 Goal [...] response to music this date. Patient at [facility] secondary to osteomyelitis in leftLE. 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) Leisure: watching television Yarsanism/Spiritual: Syn[employer] OBJECTIVE: Observed Behavior State: easy to [...] anxiety PLAN OF CARE: Multi-Disciplinary Problems (from [place] [facility]) Active Problems Problem: [facility] Start Date: 06/24/20 Goal Start Date End Date [facility] 1 06/24/20 -- Goal Details: Patient will increase pulmonary function by completing various exercises with SPO2 at=/> 92% or by increasing SPO2 by =/>1% in at least one music therapy session prior to discharge Goal Start Date End Date [facility] 2 06/24/20 -- Goal Details: Patient will [...] Lovenox Summer Anguiano MD 06/23/2020 * Macie oJe, RD - 06/23/2020 12:45 PM CDT Nutrition Follow-up Progress Note Encounter Date: 06/23/20 12:45 PM Nutrition Progress Summary: Patient is a 65 y.o. female. Admit Dx: OTHER ACUTE OSTEOMYELITIS OF LEFT FOOT (CMS/HCC). Admitted on 06/16/2020. Patient's intake is inadequate. Objective Dietary Orders (From admission, onward) Start Ordered 06/23/20 1120 Oral Nutrition Supplements Select Supplement: Glucerna Shake - Dodson 3 times daily Question: Select Supplement: Answer: Glucerna Shake - Dodson 06/23/20 1119 06/22/20 1333 Adult Diet Full Liquid Diet effective now Question: ([facility]) Diet type Answer: Full Liquid 06/22/20 1333 [...] of Weight Used for Estimated Protein : [place] Protein Needs Based on g/k.5 Total Protein [...] OK to Discharge No * Lesa Crook [facility] - 06/22/2020 1:37 PM CDT Pharmacy Note [...] Anguiano MD 40 mg at 06/22/20925 ??? qtqhedxdhcor-cjvaehjtjj-xvjschou (ZOSYN) 3.375 gram/50 mL in dextrose (premix) [...] have been put in place by the [facility] system to preserve limited supplies. [employer] Heparin shortage has also impacted choices for VTE prophylaxis and treatment. * Arley Peña MD - 06/22/2020 12:00 AM CDT A 65-year-old black female who is diabetic has peripheral vascular disease and history of COVID last year at which time I had done an asukq-zfm-rjgi amputation on the right. She had come to this hospital less than a week ago with ischemic rest pain and I have done a left roubv-rcu-rmgi amputation about 3 days ago. I was [...] feedings probably tomorrow. Job ID/VF Job ID: [id number] * Spenser Ascencio MD - 06/21/2020 10:06 [...] held, stat H&H obtained, and Protonix ordered. water filterer RN notified Silvio of H&H results, and stated we were to call an CHILD CARE SITTER and new orders would be put in to transferthe pt to the ICU. CHILD CARE SITTER team arrived, pt assessed, and transferred to [...] 250 mL intravenous Q15 Min PRN Arley Peañ MD ??? enoxaparin (LOVENOX) syringe 40 mg [...] me. Active Problems: PVD (peripheral vascular disease) ([facility]) Hyperlipidemia Dementia ([facility]/HCC) Moderate malnutrition (CMS/HCC) Anemia Hypothyroidism Diabetes mellitus [...] of Weight Used for Estimated Protein : [place] Protein Needs Based on g/k.5 Total Protein [...] is eating well and was eating well BLEACH TESTER. Pt states she eats softer foods at [...] pain. Discussed with the patient's daughter at [phone] She reports the patient is not ambulatory. [...] Carbohydrate Diet effective now Question Answer Comment ([facility]) Diet type Modified Consistency Modified Consistency: Pureed Diabetic: Consistent Carbohydrate 06/17/20 1224 06/17/20 1102 Oral Nutrition Supplements Select Supplement: Glucerna Shake - Any Flavor 3 times daily Question: Select Supplement: Answer: Glucerna Shake - Any Flavor 06/17/20 1101 ASPEN Malnutrition Assessment: Nutrition Focused Physical Exam Notes: Subcutaneous Fat Loss Orbital Region - Surrounding the Eye: Somewhat hollow look Muscle Loss [place] - Temporalis Muscle: Can see/feel well-defined [...] of Weight Used for Estimated Protein : [place] Protein Needs Based on g/k.5 Total Protein [...] to help answer questions. Pt was onhospice BLEACH TESTER. Did not observe any wasting on NFPE. [...] good historian, but she was back at [facility] in November of 2019 with a right [...] follow up further. Job ID/VF Job ID: [id number] * Lisa Pradhan MD - 06/16/2020 8:46 PM CDT History & Physical Date of service: 06/16/20 Primary care provider: Zeke Puente MD Chief Complaint: Leg pain HPI: 65-year-old female with a past medical history of dementia, osteomyelitis of bilat LE, DM, HTN, recovered covid 19 who presented to the ED with complaints of lethargy onset today. She was admitted in Nov 2019 at [facility]. She had a R heel ulcer [...] while she was recovering from a left kzbnx-ejw-ocfh amputation performed on 2020. During a prior [...] mcg tablet Take 75 mcg by mouth cake former before breakfast Unknown at Unknown time ??? [...] the past I had done a right-sided vtqzi-rzr-tbjr amputation for bacteremia from osteomyelitis of the right heel about October or November of last year. At that time, there was an osteomyelitis of the left heel. Second amputation was recommended. However, patient's family wanted to go over into hospice and so she was discharged from [facility] after the amputation. I was [...] supplement 3 times a day of the IPICO. Examination She is a well-built, nourished, black [...] both lower extremities. Of course, status post hjqlb-dpl-cnyd amputation on the right. The ZAYNAB done [...] bilateral superficial artery and infrapopliteal occlusive disease. Ekyftsww-zp-dpiplv distal ischemia. Discussion I have told the daughter that she can have eeszf-tfi-yzxj amputation, although osteomyelitis there would not be [...] doses of levothyroxine. We will proceed with ihatd-ddn-hwma amputation on the left. Thank you. Job ID/VF Job ID: [id number] * Arley Peña MD - 06/18/2020 10:13 [...] mcg tablet Take 75 mcg by mouth cake former before breakfast Unknown at Unknown time ??? [...] 06/26/2020 4:07 PM CDT Attempted to call [facility] 5 times to give report on pt, was told the nurse would call me back, but nurse did not call back. [facility] came to cigar packer and picker pt at [phone] and pt wastransported to facility. * Layne Alarcon RN - 06/21/2020 8:37 PM CDT Pt was retaining urine, frequently straight cathed BLEACH TESTER documented in this encounter ED Notes * [...] (CMS/HCC) 11/20/2019 ??? PVD (peripheral vascular disease) ([facility]) 11/20/2019 ??? Anemia 11/20/2019 ??? COVID-19 11/20/2019 ??? Hypothyroidism 11/20/2019 ??? Hyperlipidemia 11/20/2019 ??? Pressure injury of sacral region, stage 4 ([facility]/HCC) 11/20/2019 ??? Moderate malnutrition (CMS/HCC) 11/07/2019 ??? Malignant neoplasm of upper-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, estrogen receptor negative ([facility]/HCC) 11/13/2017 Past Medical History: Diagnosis Date ??? Dementia (CMS/HCC) ??? Diabetes mellitus ([facility]/HCC) ??? 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 Temp 101f. Pt a/ox1. * Mally [...] the medical record. Preeti Barr MD 06/27/20 6833 * Plan of Care - Jennifer Todd RN - 06/26/2020 3:08 PM CDT Goals: Clinical Goals for the Shift: VSS, pain control, monitor surgical site, work with therapy, safety, comfort Summary: VSS, pt will be discharged via ambulance to [facility], up in chair for breakfast and [...] been [facility] in [place], [place].The patient's daughter,Ailyn Turner is agreeable with the discharge plan.Preliminary discharge medication list was faxed.The patient will transport via [facility] this afternoon at 3 pm.Dispo code-skilled [...] therapy at discharge.SNF referrals sent to some [facility] preferred providers.Additionally,I will email the patient's daughter a listing of SNFs. * [facility] Note - Preeti Martinez LCSW - 06/25/2020 2:59 PM CDT Patient Information: BALANCE TRUING INSPECTOR Eval and Treat Last Documented BALANCE TRUING INSPECTOR ASSESSMENT (most recent) BALANCE TRUING INSPECTOR Evaluation - 06/25/20 1054 General Session Type Treatment Precautions Precautions Bed/Chair Alarm;Fall risk;Safety Cognition Orientation Oriented X4 (person, place, time, situation) Pain Assessment Pain Assessment 0-10 Pain Score 8 Patient's Stated Pain Goal No pain Pain Type Surgical pain Pain Location Leg Pain Orientation Left BALANCE TRUING INSPECTOR SWALLOW STUDY (most recent) Clinical Swallow Study No documentation. BALANCE TRUING INSPECTOR TREATMENT (most recent) BALANCE TRUING INSPECTOR Treatment - 06/25/20 1054 General Session Type Treatment Precautions Precautions Bed/Chair Alarm;Fall risk;Safety Pain Assessment Pain Assessment 0-10 Pain Score 8 Patient's Stated Pain Goal No pain Pain Type Surgical pain Pain Location Leg Pain Orientation Left BALANCE TRUING INSPECTOR Notes (Notes from 06/23/20 through 06/25/20) No [...] -- Home ADL Equipment Other (Comment) unsure -Sporthold (r) BB (t) -- -- -- Additional [...] friend. -BB -- -- -- Level of [place] Needs assistance with ADLs;Dependent with homemaking;Dependent with functional transfers -Sporthold (r) BB (t) -- -- -- Lives With Daughter;Family -Sporthold (r) BB (t) -- -- -- Receives Help From Family;door and arrival attendant Pt has choreworker 4hr/day Mon-Fri. -Sporthold (r) BB (t) -- -- -- Driving No -Sporthold (r) BB (t) -- -- -- ADL Assistance Needs assistance -Sporthold (r) BB (t) -- -- -- Bathing Total -Sporthold (r) BB (t) -- -- -- Dressing Maximal -MW (r) BB (t) -- -- -- Grooming Maximal -Sporthold (r) BB (t) -- -- -- Toileting Total -Sporthold (r) BB (t) -- -- -- Feeding Stand by -Sporthold (r) BB (t) -- -- -- Instrumental ADL (IADL) Assistance Needs assistance -Sporthold (r) BB (t) -- -- -- Meal Prep Total -BB -- -- -- Laundry Total -BB -- -- -- Cleaning Total -BB -- -- -- Shopping Total -BB -- -- -- Poultry Grader Total -BB -- -- -- Medical Management Total -BB -- -- -- Vocational/Occupation Retired -BB -- -- -- 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 Hospice staff completed bathing 2x/week. ceramic worker 4 hours day Monday-Monday that completed [...] safely transfer back to bed when needed. Printer Apprentice was also contacted and will be available to assist nursing as able with transfers and can further guide staffing associate with pt safety. - BB -- -- Pre-session: HR=80, O2=96%, WM=506/79 -EW Pain Assessment 0-10 -BB -- 0-10 [...] as tolerated -EW -- PT Recommendation/Plan (S) Longterm Facility -BB -- (S) Defer at this [...] PT. PT completed session w/ assistance of online banking specialist to maximize safety with all functional [...] a family friend. 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 Hospice staff completed bathing 2x/week. ceramic worker 4 hours day Monday-Monday that completed [...] discharge summary -MW -- OT Recommendation (S) Longterm Facility -MW -- OT Frequency 3-5x/wk -MW [...] with current plan -ES OT Recommendation (S) Longterm Facility -ES User Franco (r) = Recorded [...] Shift: VSS, pain control, tolerate diet, turn [id number], work with therapy, monitor surgical site, safety, comfort Summary: VSS, pain under control with PRN medications, tolerating GI soft diet with no complaints of nausea or abdominal pain, turned [id number], up to chair with therapy, surgical site [...] h/h, safety, rest Summary: Pt arrived to [facility] from ICU approximately 2230. VSS. A&Ox3 with [...] ICU room # 599.Report provided to Divya,social group worker who will follow the patient. * Provider [...] with Dr. Peña Operative notes states: 06/19 [id number] amputation of the left This documentation will become part of the patient???s medical record. Sincerely, Yudith Flores, RN [phone] Clinical Overhead Cleaner Maintainer HIM Health Information Management * Plan of Care - Layne Alarcon RN - 06/22/2020 6:14 AM CDT Goals: Clinical Goals for the Shift: RN: VSS, I&O, labs, tele, educate, monitor SI; manage safety/comfort/pain Summary: * pt was an CHILD CARE SITTER from the floor, arrived to [facility] ICU 06/21 at 20:09. VSS, calm, oriented [...] bleeding on the floor. Hgb =8.2 during CHILD CARE SITTER, Hgb = 8.7 & 8.5 in ICU. [...] COMFORT MEASURES PROVIDED. ACCOMPANIED BY ANESTHESIA AND CHURN TENDER. WARM BLANKETS X-3. * Perioperative Nursing Note [...] superficial femoral artery that was occluded. Operation [id number] amputation of the left. Anesthesia General. Procedure [...] replacement was necessary. 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 Ailyn is the youngest child although stated [...] with patient, MD, direct care nurse, Forest Ecology Professor, Nurse Coordinator and other members of the health care team to assure needed interventions completed. 2. Return patient to optimal level of self-care post discharge. 3. Master Brewer will follow for Discharge Planning - interventions [...] time, pt was in a SNF in [place], [place]. At some point she had hospice but not sure for how long, apparently those services were ceased. Pt was admitted for left leg pain, recent tx of infection, has the need for possible amputation. career services director has been consulted as likely will need placement once again. Podiatry eval is pending. Current txdoes include IV abxs. Weight bearing status will need to be determined if and when therapies are ordered. Will continue to monitor along with social group worker. * Plan of Care - Kathy Pineda [...] Procedure Name Priority Date/Time Associated Diagnosis Comments [place] CRITICAL CARE ILL/INJURED PATIENT INIT 30-74 MIN [...] 38 PM CDT PVD (peripheral vascular disease) ([facility]) AMPUTATION ABOVE KNEE 06/19/2020 5:52 [...] CDT documented in this encounter Results * [place] CRITICAL CARE ILL/INJURED PATIENT INIT 30-74 MIN [...] Glucose, POC 97 70 - 140 mg/dL [facility] Comment: For Glucose values <35 mg/dl when Hematocrit is >60 mg/dl,the test may not accurately detect significant hypoglycemia,and testing in the Laboratory should be considered if clinically indicated. Blood specimen (specimen) 06/26/2020 11:19 AM CDT 06/26/2020 11:19 AM CDT Reagan Salinas MD LAB POCT ORDERABLES - DEVICE F inal Result Performing Organization Address [facility] Co de Phone Number [facility] [address] [facility] [place], [place] [phone] * POCT glucose (06/26/2020 6:10 AM CDT) Glucose, POC 90 70 - 140 mg/dL [facility] Comment: For Glucose values <35 mg/dl when Hematocrit is >60 mg/dl,the test may not accurately detect significant hypoglycemia,and testing in the Laboratory should be considered if clinically indicated. Blood specimen (specimen) 06/26/2020 6:10 AM CDT 06/26/2020 6:10 AM CDT us Reagan Salinas MD LAB POCT ORDERABLES - DEVICE F inal Result Performing Organization Address [facility] Co de Phone Number [facility] [address] [facility] [place] [address] * (ABNORMAL) POCT glucose (06/25/2020 10:34 PM CDT) Glucose, POC 170(H) 70 - 140 mg/dL [facility] Comment: For Glucose values <35 mg/dl when Hematocrit is >60 mg/dl,the test may not accurately detect significant hypoglycemia,and testing in the Laboratory should be considered if clinically indicated. Blood specimen (specimen) 06/25/2020 10:34 PM CDT 06/25/2020 10:34 PM CDT Result [facility] Reagan Salinas MD LAB POCT ORDERABLES - DEVICE F inal Result Performing Organization Address [facility] Co de Phone Number [facility] [address] [facility] [place] [address] * (ABNORMAL) POCT glucose (06/25/2020 4:35 PM CDT) Glucose, POC 160(H) 70 - 140 mg/dL [facility] Comment: For Glucose values <35 mg/dl when Hematocrit is >60 mg/dl,the test may not accurately detect significant hypoglycemia,and testing in the Laboratory should be considered if clinically indicated. Blood specimen (specimen) 06/25/2020 4:35 PM CDT 06/25/2020 4:35 PM CDT Result [facility] Reagan Salinas MD LAB POCT ORDERABLES - DEVICE F inal Result Performing Organization Address [facility] de Phone Number [facility] [address] [facility] [place] [address] * (ABNORMAL) POCT glucose (06/25/2020 11:25 AM CDT) Glucose, POC 146(H) 70 - 140 mg/dL [facility] Comment: For Glucose values <35 mg/dl when Hematocrit is >60 mg/dl,the test may not accurately detect significant hypoglycemia,and testing in the Laboratory should be considered if clinically indicated. Blood specimen (specimen) 06/25/2020 11:25 AM CDT 06/25/2020 11:25 AM CDT Result [facility] Reagan Salinas MD LAB POCT ORDERABLES - DEVICE F inal Result Performing Organization Address [facility] Co de Phone Number [facility] [address] [place] [address] * POCT glucose (06/25/2020 6:40 AM CDT) Glucose, POC 138 70 - 140 mg/dL [facility] Comment: For Glucose values <35 mg/dl when Hematocrit is >60 mg/dl,the test may not accurately detect significant hypoglycemia,and testing in the Laboratory should be considered if clinically indicated. Blood specimen (specimen) 06/25/2020 6:40 AM CDT 06/25/2020 6:40 AM CDT Reagan Salinas MD LAB POCT ORDERABLES - DEVICE F inal Result Performing Organization Address [facility] Co de Phone Number [facility] [address] [facility] [place], [place] [phone] * (ABNORMAL) POCT glucose (06/24/2020 9:07 PM CDT) Glucose, POC 202(H) 70 - 140 mg/dL [facility] Comment: For Glucose values <35 mg/dl when Hematocrit is >60 mg/dl,the test may not accurately detect significant hypoglycemia,and testing in the Laboratory should be considered if clinically indicated. Blood specimen (specimen) 06/24/2020 9:07 PM CDT 06/24/2020 9:07 PM CDT Summer Anguiano MD LAB POCT ORDERABLES - DEVIC E Final Result Performing Organization Address [facility] Co de Phone Number [facility] [address] [facility] [place] [address] * (ABNORMAL) POCT glucose (06/24/2020 5:13 PM CDT) Glucose, POC 156(H) 70 - 140 mg/dL [facility] Comment: For Glucose values <35 mg/dl when Hematocrit is >60 mg/dl,the test may not accurately detect significant hypoglycemia,and testing in the Laboratory should be considered if clinically indicated. Blood specimen (specimen) 06/24/2020 5:13 PM CDT 06/24/2020 5:13 PM CDT Summer Anguiano MD LAB POCT ORDERABLES - DEVIC E Final Result Performing Organization Address [facility] Co de Phone Number [facility] [address] [facility] [place] [address] * POCT glucose (06/24/2020 11:33 AM CDT) Glucose, POC 112 70 - 140 mg/dL [facility] Comment: For Glucose values <35 mg/dl when Hematocrit is >60 mg/dl,the test may not accurately detect significant hypoglycemia,and testing in the Laboratory should be considered if clinically indicated. Blood specimen (specimen) 06/24/2020 11:33 AM CDT 06/24/2020 11:33 AM CDT Summer Anguiano MD LAB POCT ORDERABLES - DEVIC E Final Result Performing Organization Address [facility] de Phone Number [facility] [address] [facility] [place] [address] * POCT glucose (06/24/2020 7:50 AM CDT) Glucose, POC 123 70 - 140 mg/dL [facility] Comment: For Glucose values <35 mg/dl when Hematocrit is >60 mg/dl,the test may not accurately detect significant hypoglycemia,and testing in the Laboratory should be considered if clinically indicated. Blood specimen (specimen) 06/24/2020 7:50 AM CDT 06/24/2020 7:50 AM CDT Summer Anguiano MD LAB POCT ORDERABLES - DEVIC E Final Result Performing Organization Address [facility] de Phone Number [facility] [address] [facility] [place] [address] * eGFR (06/24/2020 5:38 AM CDT) eGFR 96 mL/min/1.7 3 m2 [facility] Comment: Interpretive Data Reference Interval Normal [...] Anguiano MD LAB BLOOD ORDERABLES Final Result [facility] [address] [place] [address] * (ABNORMAL) Differential, auto (06/24/2020 5:38 AM CDT) Pathologist [facility] Neutrophil abs 7.5(H) 1.7 - 6.5 K/cumm [facility] Imm gran abs 0.5(H) 0.0 - 0.1 K/cumm [facility] Lymphocyte abs 2.2 0.8 - 3.3 K/cumm [facility] Monocyte abs 0.6 0.2 - 0.8 K/cumm [facility] Eosinophil abs 0.2 0.0 - 0.5 K/cumm [facility] Basophil abs 0.1 0.0 - 0.1 K/cumm [facility] Neutrophil pct 68.1 % [facility] Comment: Interpretive Data Percent cell count reference ranges are not reported, since discordance with absolute values may lead to misinterpretation of CBC data. Current Interpretive Data was last revised on 2017. Imm gran pct 4.8 % [facility] Comment: Interpretive Data Percent cell count reference ranges are not reported, since discordance with absolute values may lead to misinterpretation of CBC data. Current Interpretive Data was last revised on 2017. Lymphocyte pct 19.8 % [facility] Comment: Interpretive Data Percent cell count reference ranges are not reported, since discordance with absolute values may lead to misinterpretation of CBC data. Current Interpretive Data was last revised on 2017. Monocyte pct 5.0 % [facility] Comment: Interpretive Data Percent cell count reference ranges are not reported, since discordance with absolute values may lead to misinterpretation of CBC data. Current Interpretive Data was last revised on 2017. Eosinophil pct 1.8 % [facility] Comment: Interpretive Data Percent cell count reference ranges are not reported, since discordance with absolute values may lead to misinterpretation of CBC data. Current Interpretive Data was last revised on 2017. Basophil pct 0.5 % [facility] Comment: Interpretive Data Percent cell count reference ranges are not reported, since discordance with absolute values may lead to misinterpretation of CBC data. Current Interpretive Data was last revised on 2017. Blood specimen (specimen) 06/24/2020 5:38 AM CDT 06/24/2020 6:18 AM CDT us Summer Anguiano MD LAB BLOOD ORDERABLES Final Result [facility] [address] [place] [address] * (ABNORMAL) Basic metabolic panel (06/24/2020 5:38 AM CDT) Pathologist [facility] Sodium 137 135 - 145 mmol/L [facility] Potassium, pl 3.7 3.3 - 4.9 mmol/L [facility] Chloride 97 97 - 110 mmol/L [facility] CO2 30 22 - 32 mmol/L [facility] Anion gap 10 2 - 15 mmol/L [facility] BUN 10 8 - 25 mg/dL [facility] Creatinine 0.60 0.60 - 1.10 mg/dL [facility] Glucose 96 70 - 199 mg/dL [facility] Comment: Interpretive Data Fasting glucose >/= [...] 2017. Calcium 8.3(L) 8.5 - 10.3 mg/dL [facility] Blood specimen (specimen) 06/24/2020 5:38 AM CDT 06/24/2020 6:16 AM CDT us Summer Anguiano MD LAB BLOOD ORDERABLES Final Result [facility] [address] [place] [address] * (ABNORMAL) CBC with auto differential (06/24/2020 5:38 AM CDT) [facility] WBC 11.1(H) 3.8 - 9.9 K/cumm [facility] Hgb 7.6(L) 11.9 - 15.5 g/dL [facility] Hct 23.1(L) 35.6 - 45.5 % [facility] Plt 248 150 - 400 K/cumm [facility] MPV 10.0 9.1 - 12.3 fL [facility] RBC 2.43(L) 3.90 - 5.20 M/cumm [facility] MCV 95.1 81.3 - 96.4 fL [facility] MCH 31.3 27.1 - 33.3 pg [facility] MCHC 32.9 32.3 - 35.7 g/dL [facility] RDW CV 15.8(H) 11.1 - 14.9 % [facility] RDW SD 54.2(H) 35.7 - 48.1 fL [facility] NRBC abs 0.05(H) 0.00 - 0.01 K/cumm [facility] Blood specimen (specimen) 06/24/2020 5:38 AM CDT 06/24/2020 6:18 AM CDT Summer Anguiano MD LAB BLOOD ORDERABLES Final Result Performing Organization Address [facility] Co de Phone Number [facility] [address] [employer] [place], [place] [phone] * (ABNORMAL) POCT glucose (06/23/2020 10:09 PM CDT) Glucose, POC 170(H) 70 - 140 mg/dL [facility] Comment: For Glucose values <35 mg/dl when Hematocrit is >60 mg/dl,the test may not accurately detect significant hypoglycemia,and testing in the Laboratory should be considered if clinically indicated. Blood specimen (specimen) 06/23/2020 10:09 PM CDT 06/23/2020 10:09 PM CDT Summer Anguiano MD LAB POCT ORDERABLES - DEVIC E Final Result Performing Organization Address City/[facility]/ZIP Co de Phone Number [facility] [address] [facility] [place], [place] [phone] * POCT glucose (06/23/2020 4:32 PM CDT) Glucose, POC 112 70 - 140 mg/dL [facility] Comment: For Glucose values <35 mg/dl when Hematocrit is >60 mg/dl,the test may not accurately detect significant hypoglycemia,and testing in the Laboratory should be considered if clinically indicated. Blood specimen (specimen) 06/23/2020 4:32 PM CDT 06/23/2020 4:32 PM CDT Summer Anguiano MD LAB POCT ORDERABLES - DEVIC E Final Result Performing Organization Address [facility] de Phone Number [facility] [address] [place] [address] * (ABNORMAL) POCT glucose (06/23/2020 11:32 AM CDT) [facility] Glucose, POC 180(H) 70 - 140 mg/dL [facility] Comment: For Glucose values <35 mg/dl when Hematocrit is >60 mg/dl,the test may not accurately detect significant hypoglycemia,and testing in the Laboratory should be considered if clinically indicated. Blood specimen (specimen) 06/23/2020 11:32 AM CDT 06/23/2020 11:32 AM CDT Result [facility] Summer Anguiano MD LAB POCT ORDERABLES - DEVIC E Final Result Performing Organization Address [facility] de Phone Number [facility] [address] [place] [address] * CBC with differential - Add on lab test (06/23/2020 8:06 AM CDT) [facility] Acceptable Yes [facility] Blood specimen (specimen) 06/23/2020 8:06 AM CDT 06/23/2020 8:07 AM CDT Narrative [facility] - 06/23/2020 8:07 AM CDT Name of Test->CBC with differential Summer Anguiano MD LAB BLOOD ORDERABLES Final Result Performing Organization Address [facility] Co de Phone Number [facility] [address] [place] [address] * POCT glucose (06/23/2020 6:06 AM CDT) [facility] Glucose, POC 76 70 - 140 mg/dL [facility] Comment: For Glucose values <35 mg/dl when Hematocrit is >60 mg/dl,the test may not accurately detect significant hypoglycemia,and testing in the Laboratory should be considered if clinically indicated. Blood specimen (specimen) 06/23/2020 6:06 AM CDT 06/23/2020 6:06 AM CDT us Summer Anguiano MD LAB POCT ORDERABLES - DEVIC E Final Result [facility] [address] Department [place] [address] * (ABNORMAL) Differential, auto (06/23/2020 6:01 AM CDT) [facility] Neutrophil abs 9.3(H) 1.7 - 6.5 K/cumm [facility] Imm gran abs 0.5(H) 0.0 - 0.1 K/cumm [facility] Lymphocyte abs 2.2 0.8 - 3.3 K/cumm [facility] Monocyte abs 0.5 0.2 - 0.8 K/cumm [facility] Eosinophil abs 0.3 0.0 - 0.5 K/cumm [facility] Basophil abs 0.1 0.0 - 0.1 K/cumm [facility] Neutrophil pct 72.5 % [facility] Comment: Interpretive Data Percent cell count reference ranges are not reported, since discordance with absolute values may lead to misinterpretation of CBC data. Current Interpretive Data was last revised on 2017. Imm gran pct 3.8 % [facility] Comment: Interpretive Data Percent cell count reference ranges are not reported, since discordance with absolute values may lead to misinterpretation of CBC data. Current Interpretive Data was last revised on 2017. Lymphocyte pct 16.9 % [facility] Comment: Interpretive Data Percent cell count reference ranges are not reported, since discordance with absolute values may lead to misinterpretation of CBC data. Current Interpretive Data was last revised on 2017. Monocyte pct 4.1 % [facility] Comment: Interpretive Data Percent cell count reference ranges are not reported, since discordance with absolute values may lead to misinterpretation of CBC data. Current Interpretive Data was last revised on 2017. Eosinophil pct 2.2 % [facility] Comment: Interpretive Data Percent cell count reference ranges are not reported, since discordance with absolute values may lead to misinterpretation of CBC data. Current Interpretive Data was last revised on 2017. Basophil pct 0.5 % [facility] Comment: Interpretive Data Percent cell count reference ranges are not reported, since discordance with absolute values may lead to misinterpretation of CBC data. Current Interpretive Data was last revised on 2017. Blood specimen (specimen) 06/23/2020 6:01 AM CDT 06/23/2020 8:04 AM CDT Summer Anguiano MD LAB BLOOD ORDERABLES Final Result [facility] [address] [place] [address] * (ABNORMAL) CBC with auto differential (06/23/2020 6:01 AM CDT) WBC 12.8(H) 3.8 - 9.9 K/cumm [facility] Hgb 7.2(L) 11.9 - 15.5 g/dL [facility] Hct 21.2(L) 35.6 - 45.5 % [facility] Plt 208 150 - 400 K/cumm [facility] MPV 10.2 9.1 - 12.3 fL [facility] RBC 2.25(L) 3.90 - 5.20 M/cumm [facility] MCV 94.2 81.3 - 96.4 fL [facility] MCH 32.0 27.1 - 33.3 pg [facility] MCHC 34.0 32.3 - 35.7 g/dL [facility] RDW CV 16.3(H) 11.1 - 14.9 % [facility] RDW SD 55.0(H) 35.7 - 48.1 fL [facility] NRBC abs 0.02(H) 0.00 - 0.01 K/cumm [facility] Blood specimen (specimen) 06/23/2020 6:01 AM CDT 06/23/2020 8:04 AM CDT Narrative [facility] - 06/23/2020 8:09 AM CDT added to blood in lab us Summer Anguiano MD LAB BLOOD ORDERABLES Final Result [facility] [address] [facility] [place] [address] * (ABNORMAL) Hemoglobin and hematocrit (06/23/2020 6:01 AM CDT) Hgb 7.3(L) 11.9 - 15.5 g/dL [facility] Hct 21.5(L) 35.6 - 45.5 % [facility] Blood specimen (specimen) 06/23/2020 6:01 AM CDT 06/23/2020 6:01 AM CDT us Harlan Salamanca MD LAB BLOOD ORDERABLES Final R esult [facility] [address] [place] [address] * (ABNORMAL) Hemoglobin and hematocrit (06/23/2020 12:12 AM CDT) Hgb 7.0(L) 11.9 - 15.5 g/dL [facility] Hct 20.6(L) 35.6 - 45.5 % [facility] Blood specimen (specimen) 06/23/2020 12:12 AM CDT 06/23/2020 12:12 AM CDT Harlan Salamanca MD LAB BLOOD ORDERABLES Final R esult Performing Organization Address [facility]/ZIP Co de Phone Number [facility] [address] [facility] [place], [place] [phone] * POCT glucose (06/22/2020 8:12 PM CDT) Glucose, POC 90 70 - 140 mg/dL [facility] Comment: For Glucose values <35 mg/dl when Hematocrit is >60 mg/dl,the test may not accurately detect significant hypoglycemia,and testing in the Laboratory should be considered if clinically indicated. Blood specimen (specimen) 06/22/2020 8:12 PM CDT 06/22/2020 8:12 PM CDT Summer Anguiano MD LAB POCT ORDERABLES - DEVIC E Final Result Performing Organization Address [facility] Co de Phone Number [facility] [address] [facility] [place] [address] * (ABNORMAL) Hemoglobin and hematocrit (06/22/2020 8:12 PM CDT) [facility] Hgb 7.0(L) 11.9 - 15.5 g/dL [facility] Hct 20.6(L) 35.6 - 45.5 % [facility] Blood specimen (specimen) 06/22/2020 8:12 PM CDT 06/22/2020 8:28 PM CDT Harlan Salamanca MD LAB BLOOD ORDERABLES Final R esult Performing Organization Address [facility]/ZIP Co de Phone Number [facility] [address] [facility] [place], [place] [phone] * POCT glucose (06/22/2020 6:42 PM CDT) Glucose, POC 83 70 - 140 mg/dL [facility] Comment: For Glucose values <35 mg/dl when Hematocrit is >60 mg/dl,the test may not accurately detect significant hypoglycemia,and testing in the Laboratory should be considered if clinically indicated. Blood specimen (specimen) 06/22/2020 6:42 PM CDT 06/22/2020 6:42 PM CDT Summer Anguiano MD LAB POCT ORDERABLES - DEVIC E Final Result Performing Organization Address [facility] Co de Phone Number [facility] [address] [facility] [place] [address] * POCT glucose (06/22/2020 1:08 PM CDT) Glucose, POC 89 70 - 140 mg/dL [facility] Comment: For Glucose values <35 mg/dl when Hematocrit is >60 mg/dl,the test may not accurately detect significant hypoglycemia,and testing in the Laboratory should be considered if clinically indicated. Blood specimen (specimen) 06/22/2020 1:08 PM CDT 06/22/2020 1:08 PM CDT Result [facility] Harlan Salamanca MD LAB POCT ORDERABLES - DEVICE Final Result Performing Organization Address [facility] de Phone Number [facility] [address] [facility] [place], [place] [phone] * (ABNORMAL) Hemoglobin and hematocrit (06/22/2020 12:33 PM CDT) Hgb 7.1(L) 11.9 - 15.5 g/dL [facility] Hct 20.8(L) 35.6 - 45.5 % [facility] Blood specimen (specimen) 06/22/2020 12:33 PM CDT 06/22/2020 12:48 PM CDT Summer Anguiano MD LAB BLOOD ORDERABLES Final Result Performing Organization Address [facility] Co de Phone Number [facility] [address] [facility] [place] [address] * POCT glucose (06/22/2020 9:07 AM CDT) Glucose, POC 79 70 - 140 mg/dL [facility] Comment: For Glucose values <35 mg/dl when Hematocrit is >60 mg/dl,the test may not accurately detect significant hypoglycemia,and testing in the Laboratory should be considered if clinically indicated. Blood specimen (specimen) 06/22/2020 9:07 AM CDT 06/22/2020 9:07 AM CDT us Harlan Salamanca MD LAB POCT ORDERABLES - DEVICE Final Result [facility] [address] Department [place] [address] * eGFR (06/22/2020 3:52 AM CDT) eGFR 93 mL/min/1.7 3 m2 [facility] Comment: Interpretive Data Reference Interval Normal [...] MD LAB BLOOD ORDERABLES Final R esult [facility] [address] Department [place] [address] * (ABNORMAL) Differential, auto (06/22/2020 3:52 AM CDT) Neutrophil abs 6.3 1.7 - 6.5 K/cumm [facility] Imm gran abs 0.4(H) 0.0 - 0.1 K/cumm [facility] Lymphocyte abs 1.5 0.8 - 3.3 K/cumm [facility] Monocyte abs 0.4 0.2 - 0.8 K/cumm [facility] Eosinophil abs 0.1 0.0 - 0.5 K/cumm [facility] Basophil abs 0.0 0.0 - 0.1 K/cumm [facility] Neutrophil pct 71.7 % [facility] Comment: Interpretive Data Percent cell count reference ranges are not reported, since discordance with absolute values may lead to misinterpretation of CBC data. Current Interpretive Data was last revised on 2017. Imm gran pct 4.8 % [facility] Comment: Interpretive Data Percent cell count reference ranges are not reported, since discordance with absolute values may lead to misinterpretation of CBC data. Current Interpretive Data was last revised on 2017. Lymphocyte pct 17.0 % [facility] Comment: Interpretive Data Percent cell count reference ranges are not reported, since discordance with absolute values may lead to misinterpretation of CBC data. Current Interpretive Data was last revised on 2017. Monocyte pct 4.6 % [facility] Comment: Interpretive Data Percent cell count reference ranges are not reported, since discordance with absolute values may lead to misinterpretation of CBC data. Current Interpretive Data was last revised on 2017. Eosinophil pct 1.4 % [facility] Comment: Interpretive Data Percent cell count reference ranges are not reported, since discordance with absolute values may lead to misinterpretation of CBC data. Current Interpretive Data was last revised on 2017. Basophil pct 0.5 % [facility] Comment: Interpretive Data Percent cell count reference ranges are not reported, since discordance with absolute values may lead to misinterpretation of CBC data. Current Interpretive Data was last revised on 2017. Blood specimen (specimen) 06/22/2020 3:52 AM CDT 06/22/2020 3:57 AM CDT us Summer Anguiano MD LAB BLOOD ORDERABLES Final Result [facility] [address] Department [place] [address] * Renal function panel (06/22/2020 3:52 AM CDT) Sodium 137 135 - 145 mmol/L [facility] Potassium, pl 3.7 3.3 - 4.9 mmol/L [facility] Chloride 97 97 - 110 mmol/L [facility] CO2 29 22 - 32 mmol/L [facility] Anion gap 11 2 - 15 mmol/L [facility] BUN 18 8 - 25 mg/dL [facility] Creatinine 0.65 0.60 - 1.10 mg/dL [facility] Glucose 102 70 - 199 mg/dL [facility] Comment: Interpretive Data Fasting glucose >/= [...] 2017. Calcium 8.8 8.5 - 10.3 mg/dL [facility] Phosphorus, pl 2.6 2.3 - 4.5 mg/dL [facility] Albumin 3.6 3.5 - 5.0 g/dL [facility] Blood specimen (specimen) 06/22/2020 3:52 AM CDT 06/22/2020 3:57 AM CDT Spenser Ascencio MD LAB BLOOD ORDERABLES Final R esult Performing Organization Address [facility] Co de Phone Number [facility] [address] [place] [address] * (ABNORMAL) CBC with auto differential (06/22/2020 3:52 AM CDT) [facility] WBC 8.8 3.8 - 9.9 K/cumm [facility] Hgb 8.5(L) 11.9 - 15.5 g/dL [facility] Hct 25.1(L) 35.6 - 45.5 % [facility] Plt 195 150 - 400 K/cumm [facility] MPV 9.7 9.1 - 12.3 fL [facility] RBC 2.78(L) 3.90 - 5.20 M/cumm [facility] MCV 90.3 81.3 - 96.4 fL [facility] MCH 30.6 27.1 - 33.3 pg [facility] MCHC 33.9 32.3 - 35.7 g/dL [facility] RDW CV 15.8(H) 11.1 - 14.9 % [facility] RDW SD 51.8(H) 35.7 - 48.1 fL [facility] NRBC abs 0.00 0.00 - 0.01 K/cumm [facility] Blood specimen (specimen) 06/22/2020 3:52 AM CDT 06/22/2020 3:57 AM CDT us Summer Anguiano MD LAB BLOOD ORDERABLES Final Result Performing Organization Address City/[facility]/ZIP Co de Phone Number [facility] [address] [place] [address] * eGFR (06/21/2020 10:21 PM CDT) eGFR 93 mL/min/1.7 3 m2 [facility] Comment: Interpretive Data Reference Interval Normal [...] MD LAB BLOOD ORDERABLES Final R esult [facility] [address] Department [place] [address] * (ABNORMAL) Renal function panel (06/21/2020 10:21 PM CDT) Pathologist [facility] Sodium 137 135 - 145 mmol/L [facility] Potassium, pl 4.0 3.3 - 4.9 mmol/L [facility] Chloride 98 97 - 110 mmol/L [facility] CO2 33(H) 22 - 32 mmol/L [facility] Anion gap 6 2 - 15 mmol/L [facility] BUN 19 8 - 25 mg/dL [facility] Creatinine 0.65 0.60 - 1.10 mg/dL [facility] Glucose 162 70 - 199 mg/dL [facility] Comment: Interpretive Data Fasting glucose >/= [...] 2017. Calcium 8.9 8.5 - 10.3 mg/dL [facility] Phosphorus, pl 2.9 2.3 - 4.5 mg/dL [facility] Albumin 3.7 3.5 - 5.0 g/dL [facility] Blood specimen (specimen) 06/21/2020 10:21 PM CDT 06/21/2020 10:31 PM CDT Spenser Ascencio MD LAB BLOOD ORDERABLES Final R esult Performing Organization Address City/[facility]/ZIP Co de Phone Number [facility] [address] [place] [address] * Lactate (06/21/2020 10:21 PM CDT) Lactate 1.1 0.7 - 2.0 mmol/L [facility] Blood specimen (specimen) 06/21/2020 10:21 PM CDT 06/21/2020 10:27 PM CDT Spenser Ascencio MD LAB BLOOD ORDERABLES Final R esult [facility] [address] [place] [address] * (ABNORMAL) CBC without differential (06/21/2020 10:21 PM CDT) [facility] WBC 9.9 3.8 - 9.9 K/cumm [facility] Hgb 8.7(L) 11.9 - 15.5 g/dL [facility] Hct 25.5(L) 35.6 - 45.5 % [facility] Plt 176 150 - 400 K/cumm [facility] MPV 9.9 9.1 - 12.3 fL [facility] RBC 2.80(L) 3.90 - 5.20 M/cumm [facility] MCV 91.1 81.3 - 96.4 fL [facility] MCH 31.1 27.1 - 33.3 pg [facility] MCHC 34.1 32.3 - 35.7 g/dL [facility] RDW CV 15.8(H) 11.1 - 14.9 % [facility] RDW SD 52.6(H) 35.7 - 48.1 fL [facility] NRBC abs 0.00 0.00 - 0.01 K/cumm [facility] Blood specimen (specimen) 06/21/2020 10:21 PM CDT 06/21/2020 10:31 PM CDT us Spenser Ascencio MD LAB BLOOD ORDERABLES Final R esult [facility] [address] Department [place] [address] * (ABNORMAL) POCT glucose (06/21/2020 9:23 PM CDT) [facility] Glucose, POC 196(H) 70 - 140 mg/dL [facility] Comment: For Glucose values <35 mg/dl when Hematocrit is >60 mg/dl,the test may not accurately detect significant hypoglycemia,and testing in the Laboratory should be considered if clinically indicated. Blood specimen (specimen) 06/21/2020 9:23 PM CDT 06/21/2020 9:23 PM CDT us Summer Anguiano MD LAB POCT ORDERABLES - DEVIC E Final Result [facility] [address] Department [place] [address] * CT Abdomen Pelvis W Contrast (06/21/2020 [...] of this study was provided by a [facility] Radiologist. There is no significant [...] of this study was provided by a [facility] Radiologist. There is no significant discrepancy. Electronically signed by: Tomi Urena M.D. Spenser Ascencio MD IM CT PROCEDURES Final Resu lt * (ABNORMAL) Hemoglobin and hematocrit (06/21/2020 7:08 PM CDT) Hgb 8.2(L) 11.9 - 15.5 g/dL [facility] Hct 24.2(L) 35.6 - 45.5 % [facility] Blood specimen (specimen) 06/21/2020 7:08 PM CDT 06/21/2020 7:08 PM CDT Result [facility] Summer Anguiano MD LAB BLOOD ORDERABLES Final Result Performing Organization Address [facility] Co de Phone Number [facility] [address] [facility] [place] [address] * POCT glucose (06/21/2020 4:35 PM CDT) Glucose, POC 136 70 - 140 mg/dL [facility] Comment: For Glucose values <35 mg/dl when Hematocrit is >60 mg/dl,the test may not accurately detect significant hypoglycemia,and testing in the Laboratory should be considered if clinically indicated. Glucose comment 1 Follow Protocol [facility] Blood specimen (specimen) 06/21/2020 4:35 PM CDT 06/21/2020 4:35 PM CDT Result [facility] Summer Anguiano MD LAB POCT ORDERABLES - DEVIC E Final Result Performing Organization Address [facility] de Phone Number [facility] [address] [facility] [place] [address] * POCT glucose (06/21/2020 1:36 PM CDT) Glucose, POC 111 70 - 140 mg/dL [facility] Comment: For Glucose values <35 mg/dl when Hematocrit is >60 mg/dl,the test may not accurately detect significant hypoglycemia,and testing in the Laboratory should be considered if clinically indicated. Blood specimen (specimen) 06/21/2020 1:36 PM CDT 06/21/2020 1:36 PM CDT Result [facility] Summer Anguiano MD LAB POCT ORDERABLES - DEVIC E Final Result Performing Organization Address [facility] Co de Phone Number [facility] [address] [place] [address] * Transfuse RBC (06/21/2020 12:41 PM CDT) Blood specimen (specimen) us Preeti Mays NP BLOOD TRANSFUSIO N ORDERABLES Edited Result - Final [facility] [address] [place] [address] * Transfuse RBC: 1 Units (06/21/2020 12:41 PM CDT) Blood specimen (specimen) us Preeti Mays NP BLOOD TRANSFUSIO N ORDERABLES Edited Result - Final * Type and screen (06/21/2020 6:56 AM CDT) ABO Rh O Positive [facility] Veronica, indirect Negative [facility] Blood specimen (specimen) 06/21/2020 6:56 AM CDT 06/21/2020 7:02 AM CDT Narrative [facility] - 06/21/2020 7:40 AM CDT Has the patient had Daratumumab or Isatuximab in the past 6 months?->Unknown us Preeti Mays NP LAB BLOOD BANK T EST ORDERABLES Final Result [facility] [address] [facility] [employer] [place], [place] [id number] * Prepare RBC: 1 Units (06/21/2020 6:41 AM CDT) Product code [id number] [facility] Unit Number [id number] [facility] Product Blood Type OPOS [facility] Dispense Status PRESUMED TRANSFUSED [facility] Blood specimen (specimen) 06/21/2020 6:41 AM CDT Narrative [facility] - 06/22/2020 10:15 AM CDT Are special requirements needed? (all products are leukoreduced)->No Date required:-20200621 LRRBC # of [id number] Reasons:-Hgb <7 g/dL} Preeti Mays NP BLOOD BANK PRODU CT ORDERABLES Final Result Performing Organization Address [facility] Co de Phone Number [facility] [address] Department of Laboratories [place], [place] [id number] * POCT glucose (06/21/2020 5:59 AM CDT) [facility] Glucose, POC 123 70 - 140 mg/dL [facility] Comment: For Glucose values <35 mg/dl when Hematocrit is >60 mg/dl,the test may not accurately detect significant hypoglycemia,and testing in the Laboratory should be considered if clinically indicated. Blood specimen (specimen) 06/21/2020 5:59 AM CDT 06/21/2020 5:59 AM CDT us Summer Anguiano MD LAB POCT ORDERABLES - DEVIC E Final Result Performing Organization Address [facility] de Phone Number [facility] [address] Department of Laboratories [place], [place] [id number] * Differential, auto (06/21/2020 5:58 AM CDT) [facility] Neutrophil abs 4.7 1.7 - 6.5 K/cumm [facility] Imm gran abs 0.1 0.0 - 0.1 K/cumm [facility] Lymphocyte abs 1.5 0.8 - 3.3 K/cumm [facility] Monocyte abs 0.4 0.2 - 0.8 K/cumm [facility] Eosinophil abs 0.2 0.0 - 0.5 K/cumm [facility] Basophil abs 0.0 0.0 - 0.1 K/cumm [facility] Neutrophil pct 68.2 % [facility] Comment: Interpretive Data Percent cell count reference ranges are not reported, since discordance with absolute values may lead to misinterpretation of CBC data. Current Interpretive Data was last revised on 2017. Imm gran pct 1.4 % [facility] Comment: Interpretive Data Percent cell count reference ranges are not reported, since discordance with absolute values may lead to misinterpretation of CBC data. Current Interpretive Data was last revised on 2017. Lymphocyte pct 21.7 % [facility] Comment: Interpretive Data Percent cell count reference ranges are not reported, since discordance with absolute values may lead to misinterpretation of CBC data. Current Interpretive Data was last revised on 2017. Monocyte pct 5.8 % [facility] Comment: Interpretive Data Percent cell count reference ranges are not reported, since discordance with absolute values may lead to misinterpretation of CBC data. Current Interpretive Data was last revised on 2017. Eosinophil pct 2.5 % [facility] Comment: Interpretive Data Percent cell count reference ranges are not reported, since discordance with absolute values may lead to misinterpretation of CBC data. Current Interpretive Data was last revised on 2017. Basophil pct 0.4 % [facility] Comment: Interpretive Data Percent cell count reference ranges are not reported, since discordance with absolute values may lead to misinterpretation of CBC data. Current Interpretive Data was last revised on 2017. Blood specimen (specimen) 06/21/2020 5:58 AM CDT 06/21/2020 6:12 AM CDT us Summer Anguiano MD LAB BLOOD ORDERABLES Final Result [facility] [address] Department [place] [address] * (ABNORMAL) CBC with auto differential (06/21/2020 5:58 AM CDT) WBC 6.9 3.8 - 9.9 K/cumm [facility] Hgb 6.1(C) 11.9 - 15.5 g/dL [facility] Comment:Critical result call ed to and read back by CARLOS TUBBS (RN) on 06 21 2020 at 0631 to Sylvain Florentin. Hct 18.8(L) 35.6 - 45.5 % [facility] Plt 191 150 - 400 K/cumm [facility] MPV 10.0 9.1 - 12.3 fL [facility] RBC 2.00(L) 3.90 - 5.20 M/cumm [facility] MCV 94.0 81.3 - 96.4 fL [facility] MCH 30.5 27.1 - 33.3 pg [facility] MCHC 32.4 32.3 - 35.7 g/dL [facility] RDW CV 15.0(H) 11.1 - 14.9 % [facility] RDW SD 51.3(H) 35.7 - 48.1 fL [facility] NRBC abs 0.00 0.00 - 0.01 K/cumm [facility] Blood specimen (specimen) 06/21/2020 5:58 AM CDT 06/21/2020 6:12 AM CDT us Summer Anguiano MD LAB BLOOD ORDERABLES Final Result Performing Organization Address City/[facility]/ZIP Co de Phone Number [facility] [address] Department [place] [address] * (ABNORMAL) POCT glucose (06/20/2020 8:21 PM CDT) Glucose, POC 150(H) 70 - 140 mg/dL [facility] Comment: For Glucose values <35 mg/dl when Hematocrit is >60 mg/dl,the test may not accurately detect significant hypoglycemia,and testing in the Laboratory should be considered if clinically indicated. Blood specimen (specimen) 06/20/2020 8:21 PM CDT 06/20/2020 8:21 PM CDT Summer Anguiano MD LAB POCT ORDERABLES - DEVIC E Final Result [facility] [address] [facility] [place] [address] * (ABNORMAL) POCT glucose (06/20/2020 4:46 PM CDT) Glucose, POC 147(H) 70 - 140 mg/dL [facility] Comment: For Glucose values <35 mg/dl when Hematocrit is >60 mg/dl,the test may not accurately detect significant hypoglycemia,and testing in the Laboratory should be considered if clinically indicated. Glucose comment 1 Follow Protocol [facility] Blood specimen (specimen) 06/20/2020 4:46 PM CDT 06/20/2020 4:46 PM CDT Summer Anguiano MD LAB POCT ORDERABLES - DEVIC E Final Result Performing Organization Address [facility] Co de Phone Number [facility] [address] [place] [address] * (ABNORMAL) POCT glucose (06/20/2020 11:27 AM CDT) Glucose, POC 154(H) 70 - 140 mg/dL [facility] Comment: For Glucose values <35 mg/dl when Hematocrit is >60 mg/dl,the test may not accurately detect significant hypoglycemia,and testing in the Laboratory should be considered if clinically indicated. Glucose comment 1 Follow Protocol [facility] Blood specimen (specimen) 06/20/2020 11:27 AM CDT 06/20/2020 11:27 AM CDT us Summer Anguiano MD LAB POCT ORDERABLES - DEVIC E Final Result Performing Organization Address City/[facility]/ZIP Co de Phone Number [facility] [address] [place] [address] * (ABNORMAL) POCT glucose (06/20/2020 6:36 AM CDT) Glucose, POC 165(H) 70 - 140 mg/dL [facility] Comment: For Glucose values <35 mg/dl when Hematocrit is >60 mg/dl,the test may not accurately detect significant hypoglycemia,and testing in the Laboratory should be considered if clinically indicated. Blood specimen (specimen) 06/20/2020 6:36 AM CDT 06/20/2020 6:36 AM CDT us Summer Anguiano MD LAB POCT ORDERABLES - DEVIC E Final Result [facility] [address] Department [place] [address] * (ABNORMAL) Differential, auto (06/20/2020 6:03 AM CDT) Neutrophil abs 7.0(H) 1.7 - 6.5 K/cumm [facility] Imm gran abs 0.1 0.0 - 0.1 K/cumm [facility] Lymphocyte abs 0.9 0.8 - 3.3 K/cumm [facility] Monocyte abs 0.3 0.2 - 0.8 K/cumm [facility] Eosinophil abs 0.0 0.0 - 0.5 K/cumm [facility] Basophil abs 0.0 0.0 - 0.1 K/cumm [facility] Neutrophil pct 84.2 % [facility] Comment: Interpretive Data Percent cell count reference ranges are not reported, since discordance with absolute values may lead to misinterpretation of CBC data. Current Interpretive Data was last revised on 2017. Imm gran pct 0.8 % [facility] Comment: Interpretive Data Percent cell count reference ranges are not reported, since discordance with absolute values may lead to misinterpretation of CBC data. Current Interpretive Data was last revised on 2017. Lymphocyte pct 10.7 % [facility] Comment: Interpretive Data Percent cell count reference ranges are not reported, since discordance with absolute values may lead to misinterpretation of CBC data. Current Interpretive Data was last revised on 2017. Monocyte pct 4.0 % [facility] Comment: Interpretive Data Percent cell count reference ranges are not reported, since discordance with absolute values may lead to misinterpretation of CBC data. Current Interpretive Data was last revised on 2017. Eosinophil pct 0.1 % [facility] Comment: Interpretive Data Percent cell count reference ranges are not reported, since discordance with absolute values may lead to misinterpretation of CBC data. Current Interpretive Data was last revised on 2017. Basophil pct 0.2 % [facility] Comment: Interpretive Data Percent cell count reference ranges are not reported, since discordance with absolute values may lead to misinterpretation of CBC data. Current Interpretive Data was last revised on 2017. Blood specimen (specimen) 06/20/2020 6:03 AM CDT 06/20/2020 6:48 AM CDT us Arley Peña MD LAB BLOOD ORDERABLES Final Resu lt [facility] [address] Department [place] [address] * (ABNORMAL) CBC with auto differential (06/20/2020 6:03 AM CDT) WBC 8.4 3.8 - 9.9 K/cumm [facility] Hgb 7.0(L) 11.9 - 15.5 g/dL [facility] Comment:Hemoglobin delta due to surgical procedure. Amputation yesterday Hct 20.6(L) 35.6 - 45.5 % [facility] Plt 182 150 - 400 K/cumm [facility] MPV 10.3 9.1 - 12.3 fL [facility] RBC 2.24(L) 3.90 - 5.20 M/cumm [facility] MCV 92.0 81.3 - 96.4 fL [facility] MCH 31.3 27.1 - 33.3 pg [facility] MCHC 34.0 32.3 - 35.7 g/dL [facility] RDW CV 14.7 11.1 - 14.9 % [facility] RDW SD 49.3(H) 35.7 - 48.1 fL [facility] NRBC abs 0.00 0.00 - 0.01 K/cumm [facility] Blood specimen (specimen) 06/20/2020 6:03 AM CDT 06/20/2020 6:48 AM CDT Result [facility] Arley Peña MD LAB BLOOD ORDERABLES Final Resu lt Performing Organization Address [facility]/ZIP Co de Phone Number [facility] [address] [facility] [place] [address] * (ABNORMAL) POCT glucose (06/19/2020 10:24 PM CDT) Glucose, POC 210(H) 70 - 140 mg/dL [facility] Comment: For Glucose values <35 mg/dl when Hematocrit is >60 mg/dl,the test may not accurately detect significant hypoglycemia,and testing in the Laboratory should be considered if clinically indicated. Blood specimen (specimen) 06/19/2020 10:24 PM CDT 06/19/2020 10:24 PM CDT Result [facility] Summer Anguiano MD LAB POCT ORDERABLES - DEVIC E Final Result Performing Organization Address [facility] Co de Phone Number [facility] [address] [facility] [place] [address] * POCT glucose (06/19/2020 8:03 PM CDT) Glucose, POC 82 70 - 140 mg/dL [facility] Comment: For Glucose values <35 mg/dl when Hematocrit is >60 mg/dl,the test may not accurately detect significant hypoglycemia,and testing in the Laboratory should be considered if clinically indicated. Blood specimen (specimen) 06/19/2020 8:03 PM CDT 06/19/2020 8:03 PM CDT Result [facility] Summer Anguiano MD LAB POCT ORDERABLES - DEVIC E Final Result Performing Organization Address [facility]/ZIP Co de Phone Number [facility] [address] [place] [address] * Surgical pathology (06/19/2020 6:38 PM CDT) Tissue (Amputation non-tramatic) 06/19/2020 6:38 PM CDT Narrative PATHOLOGY [facility] - 07/03/2020 1:15 PM CDT [address] ??[address] Tele: ?? Marti Mueller MD - Rn Pacudining room cashier PATHOLOGY REPORT Patient Name: ??IRIS GIL Address: ??[address] [place] [id number] Gender: ??F : ??1955 (Age: 65) Service: ??Medical Location: ??[facility], ?? Hospital #: ??[id number] Patient Type: ?? Inpatient Accession #: ? [id number] Taken: ? 06/19/2020 Received ? 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 ??Adjunct Nursing Faculty sections are submitted as follows: ??A1 - bone marrow from bony margin of resection; A2 - popliteal, anterior and posterior tibial vessels; A3 - black-green area at heel; A4-A5 - bone of heel deep to black-green area; A6 - skin and soft tissue at margin of resection. ??Cassettes A2, A4 and A5 are submitted for decalcification. [facility]/07/01/2020 13:59 ? J[facility] MICROSCOPIC DESCRIPTION: Microscopic examination supports the above captioned diagnosis. ??Section submitted as bone marrow from bone resection margin appears unremarkable. Clerical Data Follows A; [id number], [id number] REPORT IMAGES AND/OR SCANNED DOCUMENTS ONLY VIEWABLE IN PDF FORMAT The immunohistochemical test(s) cited in this report, if any, was developed and its performance characteristics determined by [facility] Pathology Department. ??It has not been cleared or approved by the U.S. Food and Drug Administration. ??The FDA has determined that such clearance or approval is not necessary. ??This test is used for clinical purposes. ??It should not be regarded as investigational or for research. ??[facility] Laboratory is certified under the [...] MD LAB PATHOLOGY ORDERABLES Final Result PATHOLOGY [facility] Laboratory Receiving [address] [place] [address] * POCT glucose (06/19/2020 5:02 PM CDT) Glucose, POC 71 70 - 140 mg/dL [facility] Comment: For Glucose values <35 mg/dl when Hematocrit is >60 mg/dl,the test may not accurately detect significant hypoglycemia,and testing in the Laboratory should be considered if clinically indicated. Blood specimen (specimen) 06/19/2020 5:02 PM CDT 06/19/2020 5:02 PM CDT Summer Anguiano MD LAB POCT ORDERABLES - DEVIC E Final Result Performing Organization Address [facility] Co de Phone Number [facility] [address] [facility] [place] [address] * (ABNORMAL) POCT glucose (06/19/2020 4:54 PM CDT) Glucose, POC 65(L) 70 - 140 mg/dL [facility] Comment: For Glucose values <35 mg/dl when Hematocrit is >60 mg/dl,the test may not accurately detect significant hypoglycemia,and testing in the Laboratory should be considered if clinically indicated. Blood specimen (specimen) 06/19/2020 4:54 PM CDT 06/19/2020 4:54 PM CDT Summer Anguiano MD LAB POCT ORDERABLES - DEVIC E Final Result Performing Organization Address [facility] Co de Phone Number [facility] [address] [facility] [place] [address] * Vancomycin level trough Please draw trough at this specific time. (06/19/2020 3:32 PM CDT) Pathologist [facility] Vancomycin trough 15.7 10.0 - 20.0 mcg/mL [facility] Comment: Interpretive Data ?Therapeutic Range: Uncomplicated skin and soft tissue infections: 10-20 mcg/mL All other infections: 15-20 mcg/mL Current Interpretive Data was last revised on 2020. Blood specimen (specimen) 06/19/2020 3:32 PM CDT 06/19/2020 3:32 PM CDT [facility]ative [facility] - 06/19/2020 3:59 PM CDT Please draw trough at this specific time. Summer Anguiano MD LAB BLOOD ORDERABLES Final Result Performing Organization Address [facility] de Phone Number [facility] [address] [facility] [place], [place] [id number] * POCT glucose (06/19/2020 11:34 AM CDT) Glucose, POC 83 70 - 140 mg/dL [facility] Comment: For Glucose values <35 mg/dl when Hematocrit is >60 mg/dl,the test may not accurately detect significant hypoglycemia,and testing in the Laboratory should be considered if clinically indicated. Blood specimen (specimen) 06/19/2020 11:34 AM CDT 06/19/2020 11:34 AM CDT Summer Anguiano MD LAB POCT ORDERABLES - DEVIC E Final Result Performing Organization Address [facility] de Phone Number [facility] [address] [facility] [place] [address] * (ABNORMAL) Urinalysis, microscopic only (06/19/2020 8:14 AM CDT) WBC, ur 21-50(A) 0 - 5 /HPF [facility] RBC, ur 21-50(A) 0 - 2 /HPF [facility] Epithelial cells, squamous, ur 1-5 0 - 5 /HPF [facility] Bacteria, ur 4+(A) [facility] Yeast, ur 3+(A) [facility] Culture Reflex Comment Reflex to urine culture will be performed. [facility] Urine 06/19/2020 8:14 AM CDT 06/19/2020 8:14 AM CDT Tanisha Bundy MD LAB URINE ORDERABLES Final Result Performing Organization Address City/[facility]/ZIP Co de Phone Number [facility] [address] [place] [address] * (ABNORMAL) Urinalysis reflex to microscopic and culture Urine (06/19/2020 8:14 AM CDT) Color, ur Yellow Yellow [facility] Clarity, ur Turbid(A) Clear [facility] Specific gravity, ur 1.015 1.010 - 1.025 [facility] pH, urine 6.0 [facility] Protein, ur ql 1+(A) Negative [facility] Glucose, ur ql Negative Negative [facility] Ketones, ur Negative Negative [facility] Bilirubin, ur Negative Negative [facility] Blood, ur 2+(A) Negative [facility] Urobilinogen, ur <2.0 <2.0 mg/dL [facility] Nitrite, ur Negative Negative [facility] Leukocyte esterase, ur 3+(A) Negative [facility] UA reflex comment Reflex to microscopic UA will be performed. [facility] Urine 06/19/2020 8:14 AM CDT 06/19/2020 8:14 AM CDT Narrative [facility] - 06/19/2020 9:09 AM CDT ?? Urine pH is affected by diet, medications, systemic acid-base disturbances, and renal tubular function. ??pH may affect urinary stone formation. ??For example, urine pH below 6.0 may help reduce the tendency for calcium phosphate stones and pH greater than 6.0 may reduce the tendency for uric acid stone formation. Source: [facility] [place]. Last revised 03-23-2017 us Tanisha Bundy MD LAB MICROBIOLOGY - GENERAL ORDERABLES Final Result Performing Organization Address City/[facility]/ZIP Co de Phone Number [facility] [address] [place] [address] * (ABNORMAL) Urine culture Urine (06/19/2020 8:14 AM CDT) Report Final Report: Growth indicates contamination with gram-positive alana. (.) [facility] Organism GROWTH INDICATES CONTAMINATION WITH GRAM-POS ALANA [facility] Urine 06/19/2020 8:14 AM CDT 06/19/2020 9:17 AM CDT Narrative [facility] - 06/20/2020 9:41 AM CDT Urine culture reflexed based upon urinalysis results. us Tanisha Bundy MD LAB MICROBIOLOGY - GENERAL ORDERABLES Final Result [facility] [address] [place] [address] * COVID-19 Coronavirus antigen Nasopharyngeal (06/19/2020 8:04 AM CDT) COVID-19 Ag Presumptive Negative Presumptive Negative [facility] Comment: Interpretive data: Testing was performed under Emergency Use Authorization using the [employer] Veritor System for detection of SARS-CoV-2 nucleocapsid [...] modified April 2020. First COVID-19 test? Unknown [facility] Employeed in healthcare? Unknown [facility] status? Unknown [facility] Group care resident? Unknown [facility] Hospitalized? Unknown [facility] Is patient in ICU? Unknown [facility] Symptomatic as defined by CDC? Unknown [facility] Nasopharyngeal 06/19/2020 8: 04 AM CDT 06/19/2020 8:36 AM CDT Summer Anguiano MD LAB MICROBIOLOGY - GENERAL ORDERABLES Final Result Performing Organization Address [facility] Co de Phone Number [facility] [address] [place] [address] * (ABNORMAL) POCT glucose (06/19/2020 5:56 AM CDT) Glucose, POC 206(H) 70 - 140 mg/dL [facility] Comment: For Glucose values <35 mg/dl when Hematocrit is >60 mg/dl,the test may not accurately detect significant hypoglycemia,and testing in the Laboratory should be considered if clinically indicated. Blood specimen (specimen) 06/19/2020 5:56 AM CDT 06/19/2020 5:56 AM CDT Summer Anguiano MD LAB POCT ORDERABLES - DEVIC E Final Result Performing Organization Address [facility] de Phone Number [facility] [address] Department [place] [address] * eGFR (06/19/2020 5:50 AM CDT) eGFR 94 mL/min/1.7 3 m2 [facility] Comment: Interpretive Data Reference Interval Normal [...] Anguiano MD LAB BLOOD ORDERABLES Final Result [facility] [address] [place] [address] * Basic metabolic panel (06/19/2020 5:50 AM CDT) Sodium 135 135 - 145 mmol/L [facility] Potassium, pl 3.9 3.3 - 4.9 mmol/L [facility] Comment:Hemolyzed; potassium value may be falsely elevated by as much as 0.3 - 0.5 mmol/L. Suggest redraw and reanalysis Chloride 97 97 - 110 mmol/L [facility] CO2 30 22 - 32 mmol/L [facility] Anion gap 8 2 - 15 mmol/L [facility] BUN 16 8 - 25 mg/dL [facility] Creatinine 0.63 0.60 - 1.10 mg/dL [facility] Glucose 184 70 - 199 mg/dL [facility] Comment: Interpretive Data Fasting glucose >/= [...] 2017. Calcium 8.6 8.5 - 10.3 mg/dL [facility] Blood specimen (specimen) 06/19/2020 5:50 AM CDT 06/19/2020 6:13 AM CDT Summer Anguiano MD LAB BLOOD ORDERABLES Final Result Performing Organization Address [facility] de Phone Number [facility] [address] [employer] [place], [place] [id number] * (ABNORMAL) POCT glucose (06/18/2020 8:59 PM CDT) Glucose, POC 251(H) 70 - 140 mg/dL [facility] Comment: For Glucose values <35 mg/dl when Hematocrit is >60 mg/dl,the test may not accurately detect significant hypoglycemia,and testing in the Laboratory should be considered if clinically indicated. Blood specimen (specimen) 06/18/2020 8:59 PM CDT 06/18/2020 8:59 PM CDT Summer Anguiano MD LAB POCT ORDERABLES - DEVIC E Final Result Performing Organization Address [facility] Co de Phone Number [facility] [address] [place] [address] * (ABNORMAL) POCT glucose (06/18/2020 4:52 PM CDT) Glucose, POC 210(H) 70 - 140 mg/dL [facility] Comment: For Glucose values <35 mg/dl when Hematocrit is >60 mg/dl,the test may not accurately detect significant hypoglycemia,and testing in the Laboratory should be considered if clinically indicated. Blood specimen (specimen) 06/18/2020 4:52 PM CDT 06/18/2020 4:52 PM CDT Summer Anguiano MD LAB POCT ORDERABLES - DEVIC E Final Result Performing Organization Address [facility] Co de Phone Number [facility] [address] [facility] [place] [address] * (ABNORMAL) POCT glucose (06/18/2020 11:27 AM CDT) Glucose, POC 177(H) 70 - 140 mg/dL [facility] Comment: For Glucose values <35 mg/dl when Hematocrit is >60 mg/dl,the test may not accurately detect significant hypoglycemia,and testing in the Laboratory should be considered if clinically indicated. Blood specimen (specimen) 06/18/2020 11:27 AM CDT 06/18/2020 11:27 AM CDT Summer Anguiano MD LAB POCT ORDERABLES - DEVIC E Final Result Performing Organization Address [facility] de Phone Number [facility] [address] [place] [address] * (ABNORMAL) POCT glucose (06/18/2020 6:23 AM CDT) Glucose, POC 181(H) 70 - 140 mg/dL [facility] Comment: For Glucose values <35 mg/dl when Hematocrit is >60 mg/dl,the test may not accurately detect significant hypoglycemia,and testing in the Laboratory should be considered if clinically indicated. Blood specimen (specimen) 06/18/2020 6:23 AM CDT 06/18/2020 6:23 AM CDT Result [facility] Summer Anguiano MD LAB POCT ORDERABLES - DEVIC E Final Result Performing Organization Address [facility] de Phone Number [facility] [address] [place] [address] * (ABNORMAL) T4, free (06/18/2020 5:43 AM CDT) Pathologist [facility] Free T4 0.11(L) 0.90 - 1.70 ng/dL [facility] Blood specimen (specimen) 06/18/2020 5:43 AM CDT 06/18/2020 6:23 AM CDT Narrative [facility] - 06/18/2020 7:18 AM CDT This test was reflexed from a TSH result. Summer Anguiano MD LAB BLOOD ORDERABLES Final Result [facility] [address] [facility] [place] [address] * (ABNORMAL) TSH reflex to free T4 (06/18/2020 5:43 AM CDT) [facility] TSH 19.29(H) 0.30 - 4.20 mcIUnit/mL [facility] Blood specimen (specimen) 06/18/2020 5:43 AM CDT 06/18/2020 6:23 AM CDT Summer Anguiano MD LAB BLOOD ORDERABLES Final Result [facility] [address] [place] [address] * (ABNORMAL) Hemoglobin A1c (06/18/2020 5:43 AM CDT) [facility] Hgb A1C 8.0(H) 4.0 - 5.6 % [facility] Estimated Average Glucose 183 mg/dL [facility] Comment: The ADA recommends reporting an estimated Average Glucose (eAG) with all Hemoglobin A1c results using the equation derived from a study of 507 normal and diabetic adults. ??Minority populations were underrepresented and children were not included. ?? (Diabetes Care 31:0173-0391, 2008). ??The eAG is not equivalent to a fasting glucose. Blood specimen (specimen) 06/18/2020 5:43 AM CDT 06/18/2020 6:23 AM CDT Summer Anguiano MD LAB BLOOD ORDERABLES Final Result Performing Organization Address [facility] Co de Phone Number [facility] [address] Department [place] [address] * (ABNORMAL) POCT glucose (06/17/2020 10:22 PM CDT) [facility] Signature Glucose, POC 270(H) 70 - 140 mg/dL [facility] Comment: For Glucose values <35 mg/dl when Hematocrit is >60 mg/dl,the test may not accurately detect significant hypoglycemia,and testing in the Laboratory should be considered if clinically indicated. Blood specimen (specimen) 06/17/2020 10:22 PM CDT 06/17/2020 10:22 PM CDT Summer Anguiano MD LAB POCT ORDERABLES - DEVIC E Final Result Performing Organization Address [facility] Co de Phone Number [facility] [address] [place] [address] * CTA Abdominal Aorta And Bilateral Iliofemoral [...] CONTRAST HISTORY: Left foot osteomyelitis, prior right citwl-fmx-njsm amputation. TECHNIQUE: CT angiography of the abdomen, [...] CONTRAST HISTORY: Left foot osteomyelitis, prior right hjgbg-uub-poax amputation. TECHNIQUE: CT angiography of the abdomen, [...] POC 167(H) 70 - 140 mg/dL [facility] Comment: For Glucose values <35 mg/dl when Hematocrit is >60 mg/dl,the test may not accurately detect significant hypoglycemia,and testing in the Laboratory should be considered if clinically indicated. Blood specimen (specimen) 06/17/2020 4:51 PM CDT 06/17/2020 4:51 PM CDT Result [facility] Summer Anguiano MD LAB POCT ORDERABLES - DEVIC E Final Result Performing Organization Address [facility] Co de Phone Number [facility] [address] [facility] [place] [address] * Blood culture Blood (06/17/2020 4:26 PM CDT) Report Final Report: No growth [facility] Blood specimen (specimen) 06/17/2020 4:26 PM CDT 06/17/2020 4:43 PM CDT Narrative [facility] - 06/23/2020 7:01 AM CDT From a different site than #1. Result [facility] Summer Anguiano MD LAB MICROBIOLOGY - GENERAL ORDERABLES Final Result Performing Organization Address [facility]/ZIP Co de Phone Number [facility] [address] [place] [address] * Blood culture Blood (06/17/2020 4:26 PM CDT) Report Final Report: No growth [facility] Blood specimen (specimen) 06/17/2020 4:26 PM CDT 06/17/2020 4:43 PM CDT Result [facility] Summer Anguiano MD LAB MICROBIOLOGY - GENERAL ORDERABLES Final Result Performing Organization Address City/[facility] Co de Phone Number [facility] [address] [facility] [place] [address] * (ABNORMAL) POCT glucose (06/17/2020 11:57 AM CDT) Glucose, POC 150(H) 70 - 140 mg/dL [facility] Comment: For Glucose values <35 mg/dl when Hematocrit is >60 mg/dl,the test may not accurately detect significant hypoglycemia,and testing in the Laboratory should be considered if clinically indicated. Blood specimen (specimen) 06/17/2020 11:57 AM CDT 06/17/2020 11:57 AM CDT us Summer Anguiano MD LAB POCT ORDERABLES - DEVIC E Final Result [facility] [address] Department [place] [address] * US ZAYNAB (06/17/2020 10:41 AM CDT) Anatomical Region Laterality Modality Vascular N/A Ultrasound 06/17/2020 6:15 PM CDT Impressions 06/17/2020 6:15 PM CDT 1. ??The patient has a right reyuv-xmq-dvij amputation. No studies were done on this [...] foot pain. The patient has a right oftef-xrx-xvyc amputation. Right side: The patient has a right wvkjo-gee-itti amputation Left side: The brachial pressure is [...] foot pain. The patient has a right qyelw-iho-wdoi amputation. Right side: The patient has a right wtqet-pty-pznv amputation Left side: The brachial pressure is [...] IMPRESSION: 1. The patient has a right ysgrf-uyz-ynbu amputation. No studies were done on this [...] (ABNORMAL) POCT glucose (06/17/2020 6:45 AM CDT) [facility] Signature Glucose, POC 185(H) 70 - 140 mg/dL [facility] Comment: For Glucose values <35 mg/dl when Hematocrit is >60 mg/dl,the test may not accurately detect significant hypoglycemia,and testing in the Laboratory should be considered if clinically indicated. Blood specimen (specimen) 06/17/2020 6:45 AM CDT 06/17/2020 6:45 AM CDT us Summer Anguiano MD LAB POCT ORDERABLES - DEVIC E Final Result [facility] [address] [place] [address] * eGFR (06/17/2020 6:37 AM CDT) eGFR 68 mL/min/1.7 3 m2 [facility] Comment: Interpretive Data Reference Interval Normal [...] Bundy MD LAB BLOOD ORDERABLES Final Result [facility] [address] Department [place] [address] * (ABNORMAL) Differential, auto (06/17/2020 6:37 AM CDT) Pathologist [facility] Neutrophil abs 5.3 1.7 - 6.5 K/cumm [facility] Imm gran abs 0.0 0.0 - 0.1 K/cumm [facility] Lymphocyte abs 0.6(L) 0.8 - 3.3 K/cumm [facility] Monocyte abs 0.4 0.2 - 0.8 K/cumm [facility] Eosinophil abs 0.0 0.0 - 0.5 K/cumm [facility] Basophil abs 0.0 0.0 - 0.1 K/cumm [facility] Neutrophil pct 83.2 % [facility] Comment: Interpretive Data Percent cell count reference ranges are not reported, since discordance with absolute values may lead to misinterpretation of CBC data. Current Interpretive Data was last revised on 2017. Imm gran pct 0.5 % [facility] Comment: Interpretive Data Percent cell count reference ranges are not reported, since discordance with absolute values may lead to misinterpretation of CBC data. Current Interpretive Data was last revised on 2017. Lymphocyte pct 10.1 % [facility] Comment: Interpretive Data Percent cell count reference ranges are not reported, since discordance with absolute values may lead to misinterpretation of CBC data. Current Interpretive Data was last revised on 2017. Monocyte pct 5.7 % [facility] Comment: Interpretive Data Percent cell count reference ranges are not reported, since discordance with absolute values may lead to misinterpretation of CBC data. Current Interpretive Data was last revised on 2017. Eosinophil pct 0.0 % [facility] Comment: Interpretive Data Percent cell count reference ranges are not reported, since discordance with absolute values may lead to misinterpretation of CBC data. Current Interpretive Data was last revised on 2017. Basophil pct 0.5 % [facility] Comment: Interpretive Data Percent cell count reference ranges are not reported, since discordance with absolute values may lead to misinterpretation of CBC data. Current Interpretive Data was last revised on 2017. Blood specimen (specimen) 06/17/2020 6:37 AM CDT 06/17/2020 7:19 AM CDT us Tanisha Bundy MD LAB BLOOD ORDERABLES Final Result [facility] [address] [place] [address] * aPTT (06/17/2020 6:37 AM CDT) Pathologist [facility] aPTT 32 27 - 37 sec [facility] Comment: Interpretive Data Therapeutic heparin range: 60.0 - 94.0 seconds. Based on correlation with therapeutic heparin activity range of 0.3-0.7 Units/mL. Current interpretive data was last revised on 2020. Blood specimen (specimen) 06/17/2020 6:37 AM CDT 06/17/2020 7:20 AM CDT Tanisha Bundy MD LAB BLOOD ORDERABLES Final Result Performing Organization Address City/[facility]/ZIP Co de Phone Number [facility] [address] [place] [address] * (ABNORMAL) Protime-INR (06/17/2020 6:37 AM CDT) [facility] PT 14.1(H) 9.5 - 13.6 sec [facility] INR 1.3(H) 0.9 - 1.2 [facility] Comment: Interpretive data Oral anticoagulant therapeutic ranges: Venous thromboembolism prophylaxis or treatment: 2.0-3.0 CARDIOLOGY Standard range: 2.0-3.0 High-intensity range: 2.5-3.5 Refer to indication-specific guidelines for appropriate target ranges for prosthetic heart valve replacement. Current interpretive data was last revised on 2019. Blood specimen (specimen) 06/17/2020 6:37 AM CDT 06/17/2020 7:20 AM CDT us Tanisha Bundy MD LAB BLOOD ORDERABLES Final Result [facility] [address] [place] [address] * (ABNORMAL) CBC with auto differential (06/17/2020 6:37 AM CDT) Pathologist [facility] WBC 6.4 3.8 - 9.9 K/cumm [facility] Hgb 9.8(L) 11.9 - 15.5 g/dL [facility] Hct 29.9(L) 35.6 - 45.5 % [facility] Plt 209 150 - 400 K/cumm [facility] MPV 9.8 9.1 - 12.3 fL [facility] RBC 3.09(L) 3.90 - 5.20 M/cumm [facility] MCV 96.8(H) 81.3 - 96.4 fL [facility] MCH 31.7 27.1 - 33.3 pg [facility] MCHC 32.8 32.3 - 35.7 g/dL [facility] RDW CV 15.0(H) 11.1 - 14.9 % [facility] RDW SD 53.1(H) 35.7 - 48.1 fL [facility] NRBC abs 0.00 0.00 - 0.01 K/cumm [facility] Blood specimen (specimen) 06/17/2020 6:37 AM CDT 06/17/2020 7:19 AM CDT Tanisha Bundy MD LAB BLOOD ORDERABLES Final Result Performing Organization Address [facility] Co de Phone Number [facility] [address] [employer] [place] [address] * Phosphorus (06/17/2020 6:37 AM CDT) Pathologist [facility] Phosphorus, pl 3.5 2.3 - 4.5 mg/dL [facility] Blood specimen (specimen) 06/17/2020 6:37 AM CDT 06/17/2020 7:35 AM CDT Tanisha Bundy MD LAB BLOOD ORDERABLES Final Result Performing Organization Address [facility] Co de Phone Number [facility] [address] [place] [address] * Magnesium (06/17/2020 6:37 AM CDT) Magnesium 1.8 1.4 - 2.5 mg/dL [facility] Blood specimen (specimen) 06/17/2020 6:37 AM CDT 06/17/2020 7:35 AM CDT Tanisha Bundy MD LAB BLOOD ORDERABLES Final Result [facility] [address] Department [place] [address] * (ABNORMAL) Comprehensive metabolic panel (06/17/2020 6:37 AM CDT) Pathologist [facility] Sodium 136 135 - 145 mmol/L [facility] Potassium, pl 3.1(L) 3.3 - 4.9 mmol/L [facility] Chloride 95(L) 97 - 110 mmol/L [facility] CO2 32 22 - 32 mmol/L [facility] Anion gap 9 2 - 15 mmol/L [facility] BUN 18 8 - 25 mg/dL [facility] Creatinine 0.89 0.60 - 1.10 mg/dL [facility] Glucose 170 70 - 199 mg/dL [facility] Comment: Interpretive Data Fasting glucose >/= [...] 2017. Calcium 8.6 8.5 - 10.3 mg/dL [facility] Bilirubin, total 0.6 0.1 - 1.2 mg/dL [facility] Protein, pl 7.0 6.5 - 8.5 g/dL [facility] Albumin 3.5 3.5 - 5.0 g/dL [facility] Alk phos 27(L) 40 - 130 Units/L [facility] ALT 25 7 - 45 Units/L [facility] AST 33 10 - 45 Units/L [facility] Blood specimen (specimen) 06/17/2020 6:37 AM CDT 06/17/2020 7:35 AM CDT Tanisha Bundy MD LAB BLOOD ORDERABLES Final Result Performing Organization Address [facility]/ZIP Co de Phone Number [facility] [address] [facility] [place], [place] [id number] * (ABNORMAL) POCT glucose (06/16/2020 10:32 PM CDT) Glucose, POC 185(H) 70 - 140 mg/dL [facility] Comment: For Glucose values <35 mg/dl when Hematocrit is >60 mg/dl,the test may not accurately detect significant hypoglycemia,and testing in the Laboratory should be considered if clinically indicated. Blood specimen (specimen) 06/16/2020 10:32 PM CDT 06/16/2020 10:32 PM CDT Result [facility] Tanisha Bundy MD LAB POCT ORDERABLES - GILMA CE Final Result Performing Organization Address [facility] Co de Phone Number [facility] [address] Department [place] [address] * (ABNORMAL) POCT glucose (06/16/2020 8:41 PM CDT) Glucose, POC 213(H) 70 - 140 mg/dL [facility] Comment: For Glucose values <35 mg/dl when Hematocrit is >60 mg/dl,the test may not accurately detect significant hypoglycemia,and testing in the Laboratory should be considered if clinically indicated. Blood specimen (specimen) 06/16/2020 8:41 PM CDT 06/16/2020 8:41 PM CDT Tanisha Bundy MD LAB POCT ORDERABLES - GILMA CE Final Result [facility] [address] Department [place] [address] * CT Head WO Contrast (06/16/2020 5:53 [...] panel Nasopharyngeal (06/16/2020 5:33 PM CDT) Pathologist [facility] Influenza A RNA Not Detected Not Detected [facility] Influenza B RNA Not Detected Not Detected [facility] RSV RNA Not Detected Not Detected [facility] COVID-19 RNA Not Detected Not Detected [facility] Coronavirus 229E RNA Not Detected Not Detected [facility] Coronavirus HKU1 RNA Not Detected Not Detected [facility] Coronavirus NL63 RNA Not Detected Not Detected [facility] Coronavirus OC43 RNA Not Detected Not Detected [facility] Adenovirus DNA Not Detected Not Detected [facility] Metapneumovirus RNA Not Detected Not Detected [facility] Rhinovirus/Enterov irus RNA Not Detected Not Detected [facility] Parainfluenza 1 RNA Not Detected Not Detected [facility] Parainfluenza 2 RNA Not Detected Not Detected [facility] Parainfluenza 3 RNA Not Detected Not Detected [facility] Parainfluenza 4 RNA Not Detected Not Detected [facility] B. pertussis DNA Not Detected Not Detected [facility] B. parapertussis DNA Not Detected Not Detected [facility] C. pneumoniae DNA Not Detected Not Detected [facility] M. pneumoniae DNA Not Detected Not Detected [facility] Comment: The [employer] FilmArray Respiratory Panel (RP2.1) assay is a [...] authorization from the FDA for testing of COMMERCIAL FOOD INSTRUCTOR swabs. ??The performance characteristics of this assay have been determined by [facility]. Current interpretive data was last revised on 2019. Employeed in healthcare? No [facility] status? No [facility] Group care resident? No [facility] Hospitalized? No [facility] Is patient in ICU? No [facility] Symptomatic as defined by CDC? Unknown [facility] Nasopharyngeal 06/16/2020 5: 33 PM CDT 06/16/2020 5:38 PM CDT Narrative [facility] - 06/16/2020 6:30 PM CDT Reason for testing?->Symptomatic (immunocompromised) Known exposure to confirmed or suspected COVID-19 case?->No Surveillance testing for transplant patient?->No Preeti Barr MD LAB MICROBIOLOGY - GENERA L ORDERABLES Final Result Performing Organization Address [facility] Co de Phone Number [facility] [address] Department [place] [address] * (ABNORMAL) POCT glucose (06/16/2020 4:39 PM CDT) [facility] Glucose, POC 228(H) 70 - 140 mg/dL [facility] Comment: For Glucose values <35 mg/dl when Hematocrit is >60 mg/dl,the test may not accurately detect significant hypoglycemia,and testing in the Laboratory should be considered if clinically indicated. Blood specimen (specimen) 06/16/2020 4:39 PM CDT 06/16/2020 4:39 PM CDT Preeti Barr MD LAB POCT ORDERABLES - DEV ICE Final Result Performing Organization Address [facility] Co de Phone Number [facility] [address] Department [place] [address] * XR Foot Left 3 or More [...] (06/16/2020 2:02 PM CDT) Acceptable Yes [facility] Blood specimen (specimen) 06/16/2020 2:02 PM CDT 06/16/2020 2:02 PM CDT Narrative [facility] - 06/16/2020 2:02 PM CDT Name of Test->ESR Preeti Barr MD LAB BLOOD ORDERABLES Debbie l Result Performing Organization Address [facility]/ZIP Co de Phone Number [facility] [address] Department [employer] [place], [place] [id number] * CRP High sensitivity - Add on lab test (06/16/2020 1:50 PM CDT) Pathologist [facility] Acceptable Yes [facility] Blood specimen (specimen) 06/16/2020 1:50 PM CDT 06/16/2020 2:00 PM CDT Narrative [facility] - 06/16/2020 2:00 PM CDT Name of Test->CRP High sensitivity Result [facility] Preeti Barr MD LAB BLOOD ORDERABLES Debbie l Result Performing Organization Address [facility] Co de Phone Number [facility] [address] [place] [address] * (ABNORMAL) Erythrocyte sedimentation rate (06/16/2020 1:18 PM CDT) [facility] Erythrocyte sedimentation rate 95(H) 1 - 30 mm/hr [facility] Blood specimen (specimen) 06/16/2020 1:18 PM CDT 06/16/2020 1:26 PM CDT Result [facility] Notinfile Unknown LAB BLOOD ORDERABLES Final Res ult Performing Organization Address [facility] Co de Phone Number [facility] [address] [facility] [place], [place] [phone] * CRP (cardiac risk) (06/16/2020 1:18 PM CDT) Pathologist [facility] hsCRP 85.17 mg/L [facility] Comment: Interpretive data Adult only - [...] Unknown LAB BLOOD ORDERABLES Final Res ult [facility] [address] Department [place] [address] * eGFR (06/16/2020 1:18 PM CDT) eGFR 86 mL/min/1.7 3 m2 [facility] Comment: Interpretive Data Reference Interval Normal ?>/= [...] MD LAB BLOOD ORDERABLES Final R esult [facility] [address] Department [place] [address] * Differential, auto (06/16/2020 1:18 PM CDT) Neutrophil abs 5.4 1.7 - 6.5 K/cumm [facility] Imm gran abs 0.1 0.0 - 0.1 K/cumm [facility] Lymphocyte abs 0.8 0.8 - 3.3 K/cumm [facility] Monocyte abs 0.5 0.2 - 0.8 K/cumm [facility] Eosinophil abs 0.2 0.0 - 0.5 K/cumm [facility] Basophil abs 0.0 0.0 - 0.1 K/cumm [facility] Neutrophil pct 77.2 % [facility] Comment: Interpretive Data Percent cell count reference ranges are not reported, since discordance with absolute values may lead to misinterpretation of CBC data. Current Interpretive Data was last revised on 2017. Imm gran pct 0.9 % [facility] Comment: Interpretive Data Percent cell count reference ranges are not reported, since discordance with absolute values may lead to misinterpretation of CBC data. Current Interpretive Data was last revised on 2017. Lymphocyte pct 11.7 % [facility] Comment: Interpretive Data Percent cell count reference ranges are not reported, since discordance with absolute values may lead to misinterpretation of CBC data. Current Interpretive Data was last revised on 2017. Monocyte pct 7.1 % [facility] Comment: Interpretive Data Percent cell count reference ranges are not reported, since discordance with absolute values may lead to misinterpretation of CBC data. Current Interpretive Data was last revised on 2017. Eosinophil pct 2.5 % [facility] Comment: Interpretive Data Percent cell count reference ranges are not reported, since discordance with absolute values may lead to misinterpretation of CBC data. Current Interpretive Data was last revised on 2017. Basophil pct 0.6 % [facility] Comment: Interpretive Data Percent cell count reference ranges are not reported, since discordance with absolute values may lead to misinterpretation of CBC data. Current Interpretive Data was last revised on 2017. Blood specimen (specimen) 06/16/2020 1:18 PM CDT 06/16/2020 1:26 PM CDT us Sam Rosenberg MD LAB BLOOD ORDERABLES Final R esult [facility] [address] [place] [address] * Blood culture Blood (06/16/2020 1:18 PM CDT) Report Final Report: No growth [facility] Blood specimen (specimen) 06/16/2020 1:18 PM CDT 06/16/2020 1:32 PM CDT Narrative [facility] - 06/22/2020 7:00 AM CDT From a different site than #1. us Preeti Barr MD LAB MICROBIOLOGY - GENERA L ORDERABLES Final Result [facility] [address] [place] [address] * (ABNORMAL) Blood culture Blood (06/16/2020 1:18 PM CDT) Direct Specimen Exam Stain: Gram positive cocci resembling Staph Test result called to and read back by LEANNE DUARTE RN on 06/17/2020 15:12:57 by JERZY [facility] Report Final Report: Coagulase negative Staphylococcus species Isolate may represent contamination. ??Susceptibility not reported. ??Please call the Microbiology Lab if susceptibility testing is clinically indicated. (.) [facility] Blood specimen (specimen) 06/16/2020 1:18 PM CDT 06/16/2020 1:32 PM CDT Preeti Barr MD LAB MICROBIOLOGY - GENERA L ORDERABLES Final Result Performing Organization Address [facility]/ZIP Co de Phone Number [facility] [address] [employer] [place], [place] [phone] * Sepsis Lactate w/ Reflex (06/16/2020 1:18 PM CDT) [facility] Sepsis Lactate 1.9 0.7 - 2.0 mmol/L [facility] Blood specimen (specimen) 06/16/2020 1:18 PM CDT 06/16/2020 1:25 PM CDT Preeti Barr MD LAB BLOOD ORDERABLES Debbie l Result Performing Organization Address [facility]/ZIP Co de Phone Number [facility] [address] [employer] [place], [place] [phone] * (ABNORMAL) Comprehensive metabolic panel (06/16/2020 1:18 PM CDT) [facility] Sodium 135 135 - 145 mmol/L [facility] Potassium, pl 4.1 3.3 - 4.9 mmol/L [facility] Comment:Hemolyzed; potassium value may be falsely elevated by as much as 0.6 - 1.0 mmol/L. Suggest redraw and reanalysis Chloride 93(L) 97 - 110 mmol/L [facility] CO2 32 22 - 32 mmol/L [facility] Anion gap 10 2 - 15 mmol/L [facility] BUN 15 8 - 25 mg/dL [facility] Creatinine 0.73 0.60 - 1.10 mg/dL [facility] Glucose 228(H) 70 - 199 mg/dL [facility] Comment: Interpretive Data Fasting glucose >/= [...] 2017. Calcium 9.1 8.5 - 10.3 mg/dL [facility] Bilirubin, total 0.9 0.1 - 1.2 mg/dL [facility] Protein, pl 7.5 6.5 - 8.5 g/dL [facility] Albumin 3.6 3.5 - 5.0 g/dL [facility] Alk phos 29(L) 40 - 130 Units/L [facility] ALT 29 7 - 45 Units/L [facility] Comment:Moderately Hemolyzed Specimen AST 48(H) 10 - 45 Units/L [facility] Comment:Moderately Hemolyzed Specimen Blood specimen (specimen) 06/16/2020 1:18 PM CDT 06/16/2020 1:25 PM CDT Preeti Barr MD LAB BLOOD ORDERABLES Debbie valero Result [facility] [address] Department [place] [address] * (ABNORMAL) CBC with auto differential (06/16/2020 1:18 PM CDT) WBC 6.9 3.8 - 9.9 K/cumm [facility] Hgb 11.4(L) 11.9 - 15.5 g/dL [facility] Hct 33.8(L) 35.6 - 45.5 % [facility] Plt 228 150 - 400 K/cumm [facility] MPV 9.4 9.1 - 12.3 fL [facility] RBC 3.62(L) 3.90 - 5.20 M/cumm [facility] MCV 93.4 81.3 - 96.4 fL [facility] MCH 31.5 27.1 - 33.3 pg [facility] MCHC 33.7 32.3 - 35.7 g/dL [facility] RDW CV 14.6 11.1 - 14.9 % [facility] RDW SD 50.2(H) 35.7 - 48.1 fL [facility] NRBC abs 0.00 0.00 - 0.01 K/cumm [facility] Blood specimen (specimen) 06/16/2020 1:18 PM CDT 06/16/2020 1:26 PM CDT us Preeti Barr MD LAB BLOOD ORDERABLES Debbie l Result Performing Organization Address [facility] Co de Phone Number [facility] [address] Department [employer] [place], [place] [phone] * (ABNORMAL) POCT glucose (06/16/2020 12:58 PM CDT) [facility] Glucose, POC 244(H) 70 - 140 mg/dL [facility] Comment: For Glucose values <35 mg/dl when Hematocrit is >60 mg/dl,the test may not accurately detect significant hypoglycemia,and testing in the Laboratory should be considered if clinically indicated. Blood specimen (specimen) 06/16/2020 12:58 PM CDT 06/16/2020 12:58 PM CDT us Notinfile Unknown LAB POCT ORDERABLES - DEVICE F inal Result Performing Organization Address [facility]/ZIP Co de Phone Number [facility] [address] [place] [address] documented in this encounter Visit Diagnoses Not [...] Call MD for each episode of hypoglycemia. BULLDOZER MECHANIC STATES GLUTOSE-15 CONTAINS GLUCOSE 40% W/W (50% [...] 1 tablet (50 mcg total) by mouth cake former before breakfast Error 11/21/2019 06/16/[address] [...] mcg tablet Take 75 mcg by mouth cake former before breakfast Stop Taking at Discharge 06/26/2020 documented as of this encounter Historical Medications * This list may reflect changes made after this encounter. atorvastatin (LIPITOR) 40 mg tablet Take 1 tablet (40 mg total) by mouth daily amLODIPine (NORVASC) 10 mg tablet Take 1 tablet (10 mg total) by mouth daily levothyroxine (SYNTHROID) 75 mcg tablet Take 75 mcg by mouth cake former before breakfast 1 traMADoL (ULTRAM) 50 mg [...] Call MD for each episode of hypoglycemia. BULLDOZER MECHANIC STATES GLUTOSE-15 CONTAINS GLUCOSE 40% W/W (50% [...] Call MD for each episode of hypoglycemia. BULLDOZER MECHANIC STATES GLUTOSE-15 CONTAINS GLUCOSE 40% W/W (50% [...] (PROTONIX) injection 40 mg 1 0 06/21/2020 mjgabgjxrken-djpgaqctws-llnl arelis (ZOSYN) 3.375 gram/50 mL in dextrose [...] documented as of this encounter Care Teams Kapok Machine Operator Relationship Specialty Start Date End Date Zeke Puente MD [address] [place] [address] PCP - General 12/02/18 Damon Swanson DO [address] [place] [id number] Medical Oncologist/Firer Boiler Hematology and Oncology 10/25/17 Karl Smith Jr., MD [address] [place], [place] [address] Surgeon General Surgery 11/07/19 documented as of this encounter
--- OUTSIDE RECORDS SUMMARY | 2024-02-27 03:14 | XMS_ITS | Encounter Summary ---
Author Organization [facility] Healthcare Address [address] [place] [address] Care Team Providers Care Measurer Name Role Phone KikiDamon dale DO Unavailable [phone] Zeke Puente MD Primary Care Provider Sarah Baldwin MD, Karl Ralph. Unavailable Encounter Details Date Type Department Care Team (Latest Contact Info) Description 06/17/2020 6:05 AM CDT - 06/17/2020 11:59 PM CDT Hospital Encounter [facility] [address] [place] [address] Lisa Pradhan MD [address] [place] [address] [place] [address] Discharge Disposition: Discharge to home or self [...] declined 06/17/2020 How often do you attend bahai or worship serv ices? Patient declined 06/17/2020 Do you belong to any clubs o r organizations such as bahai groups, unions, fraternal or athletic groups, or [...] on file Legal Sex Female 12:30 PM C D STRIPPER Gender Identity Not on file Sexual Orientation Not on file documented as of this encounter Medications at Time of Discharge amLODIPine (NORVASC) 10 mg tablet Take 1 tablet (10 mg total) by mouth daily atorvastatin (LIPITOR) 40 mg tablet Take 1 tablet (40 mg total) by mouth daily levothyroxine (SYNTHROID) 100 mcg tablet Take 1 tablet (100 mcg total) by mouth program proposals coordinator before breakfast 30 tablet 1 06/25/2020 gabapentin [...] mcg tablet Take 75 mcg by mouth program proposals coordinator before breakfast 1 oxyCODONE (ROXICODONE) 5 mg [...] was normal. 4) Progress Notes by Harlan Salamanca MD at 06/22/2020 Indication For ICU Admission; [...] part of the patient???s medical record. Sincerely, [facility] Information Management documented in this encounter Plan [...] CDT 1. ??The patient has a right xgcom-rih-dyop amputation. No studies were done on this [...] foot pain. The patient has a right wtwev-ymq-czvu amputation. Right side: The patient has a right gpddv-mpn-dwkf amputation Left side: The brachial pressure is [...] foot pain. The patient has a right fkbaz-nnu-kjot amputation. Right side: The patient has a right kdcey-bvr-srgw amputation Left side: The brachial pressure is [...] IMPRESSION: 1. The patient has a right degdd-uqt-ogct amputation. No studies were done on this [...] by: Franco Martinez M.D. 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 07/08/2019 10/28/2020 5:00 AM C DT documented as of this encounter Care Teams Measurer Relationship Specialty Start Date End Date Zeke Puente MD [address] [place] [address] PCP - General 12/02/18 Damon Swanson DO [address] [place] [id number] Medical Oncologist/Cruise Agent Hematology and Oncology 10/25/17 Karl Smith Jr., MD [address] [place] [address] Surgeon General Surgery 11/07/19 documented as of this encounter
--- OUTSIDE RECORDS SUMMARY | 2024-02-27 03:14 | XMS_ITS | Encounter Summary ---
Author Organization [facility] Healthcare Address [address] [place] [address] Care Team Providers Care Retail Sales Merchandiser Name Role Phone Damon Swanson DO Unavailable [phone] Zeke Puente MD Primary Care Provider [phone] Sarah Baldwin MD, Karl N. Unavailable Encounter Details Date Type Department Care Team (Latest Contact Info) Description 11/20/2019 10:29 PM CDT - 12/25/2019 6:15 PM CDT Hospital Encounter 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 Procedure [id number] amputation on the right. Anesthesia General. Procedure [...] was 600 mL. Job ID/VF Job ID: [id number] documented in this encounter Plan of Treatment [...] AM CDT) eGFR 102 mL/min/1.7 3 m2 [facility] Comment: Interpretive Data Reference Interval Normal ?>/= 90 mL/min/1.73m2 Mildly decreased* ? 60 - 89 mL/min/1.73m2 Mildly to moderately decreased ?45 - 59 mL/min/1.73m2 Moderately to severely decreased ??30 - 44 mL/min/1.73m2 Severely decreased ?15 - 29 mL/min/1.73m2 Kidney Failure ?< 15 ??mL/min/1.73m2 *Relative to young adult level If -Mexican multiply value by 1.16. Estimated glomerular filtration [...] MD LAB BLOOD ORDERABLES Final Re sult [facility] [address] [place] [address] * (ABNORMAL) Comprehensive metabolic panel (12/23/2019 5:41 AM CDT) Pathologist [facility] Sodium 140 135 - 145 mmol/L [facility] Potassium, pl 3.6 3.3 - 4.9 mmol/L [facility] Chloride 96(L) 97 - 110 mmol/L [facility] CO2 33(H) 22 - 32 mmol/L [facility] Anion gap 11 2 - 15 mmol/L [facility] BUN 18 8 - 25 mg/dL [facility] Creatinine 0.51(L) 0.60 - 1.10 mg/dL [facility] Glucose 170 70 - 199 mg/dL [facility] Comment: Interpretive Data Fasting glucose [...] 2017. Calcium 8.7 8.5 - 10.3 mg/dL [facility] Bilirubin, total 0.2 0.1 - 1.2 mg/dL [facility] Protein, pl 6.8 6.5 - 8.5 g/dL [facility] Albumin 3.2(L) 3.5 - 5.0 g/dL [facility] Alk phos 26(L) 40 - 130 Units/L [facility] ALT 11 7 - 45 Units/L [facility] AST 16 10 - 45 Units/L [facility] Blood specimen (specimen) 12/23/2019 5:41 AM CDT 12/23/2019 5:41 AM CDT Bennett Saleh MD LAB BLOOD ORDERABLES Final Re sult [facility] [address] [place] [address] * CRP (acute phase) (12/23/2019 5:41 AM CDT) CRP 8.4 <=10.0 mg/L [facility] Blood specimen (specimen) 12/23/2019 5:41 AM CDT 12/23/2019 5:41 AM CDT us Bennett Saleh MD LAB BLOOD ORDERABLES Final Re sult [facility] [address] [place] [employer] [place] [address] * (ABNORMAL) CBC without differential (12/23/2019 3:47 AM CDT) WBC 5.1 3.8 - 9.9 K/cumm [facility] Hgb 9.4(L) 11.9 - 15.5 g/dL [facility] Hct 29.3(L) 35.6 - 45.5 % [facility] Plt 376 150 - 400 K/cumm [facility] MPV 9.2 9.1 - 12.3 fL [facility] RBC 3.08(L) 3.90 - 5.20 M/cumm [facility] MCV 95.1 81.3 - 96.4 fL [facility] MCH 30.5 27.1 - 33.3 pg [facility] MCHC 32.1(L) 32.3 - 35.7 g/dL [facility] RDW CV 17.0(H) 11.1 - 14.9 % [facility] RDW SD 59.7(H) 35.7 - 48.1 fL [facility] NRBC abs 0.00 0.00 - 0.01 K/cumm [facility] Blood specimen (specimen) 12/23/2019 3:47 AM CDT 12/23/2019 3:47 AM CDT us Vaishali Clemente DO LAB BLOOD ORDERABLES Edited Result - Final [facility] [address] [place] [address] * (ABNORMAL) Erythrocyte sedimentation rate (12/23/2019 3:47 AM CDT) Erythrocyte sedimentation rate 117(H) 1 - 30 mm/hr [facility] Blood specimen (specimen) 12/23/2019 3:47 AM CDT 12/23/2019 3:47 AM CDT Vaishali Clemente DO LAB BLOOD ORDERABLES Final Result Performing Organization Address [facility] Co de Phone Number [facility] [address] Department [employer] [place], [place] [id number] * (ABNORMAL) TSH (12/23/2019 3:40 AM CDT) Thyroid Stimulating Hormone 5.62(H) 0.30 - 4.20 mcIUnit/mL [facility] Blood specimen (specimen) 12/23/2019 3:40 AM CDT 12/23/2019 3:45 AM CDT Bennett Saleh MD LAB BLOOD ORDERABLES Final Re sult Performing Organization Address [facility] Co de Phone Number [facility] [address] [place] [employer] [place] [address] * eGFR (12/17/2019 4:13 AM CDT) eGFR 96 mL/min/1.7 3 m2 [facility] Comment: Interpretive Data Reference Interval Normal ?>/= 90 mL/min/1.73m2 Mildly decreased* ? 60 - 89 mL/min/1.73m2 Mildly to moderately decreased ?45 - 59 mL/min/1.73m2 Moderately to severely decreased ??30 - 44 mL/min/1.73m2 Severely decreased ?15 - 29 mL/min/1.73m2 Kidney Failure ?< 15 ??mL/min/1.73m2 *Relative to young adult level If -Mexican multiply value by 1.16. Estimated glomerular filtration [...] MD LAB BLOOD ORDERABLES Final Re sult [facility] [address] Department [place] [address] * (ABNORMAL) Basic metabolic panel (12/17/2019 4:13 AM CDT) Sodium 138 135 - 145 mmol/L [facility] Potassium, pl 3.3 3.3 - 4.9 mmol/L [facility] Chloride 94(L) 97 - 110 mmol/L [facility] CO2 36(H) 22 - 32 mmol/L [facility] Anion gap 8 2 - 15 mmol/L [facility] BUN 19 8 - 25 mg/dL [facility] Creatinine 0.60 0.60 - 1.10 mg/dL [facility] Glucose 75 70 - 199 mg/dL [facility] Comment: Interpretive Data Fasting glucose [...] 2017. Calcium 8.6 8.5 - 10.3 mg/dL [facility] Blood specimen (specimen) 12/17/2019 4:13 AM CDT 12/17/2019 4:13 AM CDT us Bennett Saleh MD LAB BLOOD ORDERABLES Final Re sult Performing Organization Address [facility] Co de Phone Number [facility] [address] [place] [address] * eGFR (12/16/2019 5:27 AM CDT) [facility] eGFR 97 mL/min/1.7 3 m2 [facility] Comment: Interpretive Data Reference Interval Normal ?>/= 90 mL/min/1.73m2 Mildly decreased* ? 60 - 89 mL/min/1.73m2 Mildly to moderately decreased ?45 - 59 mL/min/1.73m2 Moderately to severely decreased ??30 - 44 mL/min/1.73m2 Severely decreased ?15 - 29 mL/min/1.73m2 Kidney Failure ?< 15 ??mL/min/1.73m2 *Relative to young adult level If -Mexican multiply value by 1.16. Estimated glomerular filtration [...] BLOOD ORDERABLES Final Result Performing Organization Address [facility] Co de Phone Number [facility] [address] Department [place] [address] * (ABNORMAL) Comprehensive metabolic panel (12/16/2019 5:27 AM CDT) Sodium 139 135 - 145 mmol/L [facility] Potassium, pl 2.9(L) 3.3 - 4.9 mmol/L [facility] Chloride 93(L) 97 - 110 mmol/L [facility] CO2 37(H) 22 - 32 mmol/L [facility] Anion gap 9 2 - 15 mmol/L [facility] BUN 17 8 - 25 mg/dL [facility] Creatinine 0.59(L) 0.60 - 1.10 mg/dL [facility] Glucose 45(C) 70 - 199 mg/dL [facility] Comment: Critical result called to and read back by Rochelle Lao RN on 12/16/19 0608 to [id number] Interpretive Data Fasting glucose >/= 126 mg/dl [...] 2017. Calcium 8.5 8.5 - 10.3 mg/dL [facility] Bilirubin, total 0.2 0.1 - 1.2 mg/dL [facility] Protein, pl 7.0 6.5 - 8.5 g/dL [facility] Albumin 3.1(L) 3.5 - 5.0 g/dL [facility] Alk phos 24(L) 40 - 130 Units/L [facility] ALT 11 7 - 45 Units/L [facility] AST 24 10 - 45 Units/L [facility] Blood specimen (specimen) 12/16/2019 5:27 AM CDT 12/16/2019 5:27 AM CDT us Vaishali Clemente DO LAB BLOOD ORDERABLES Final Result [facility] [address] [facility] [place] [address] * CRP (acute phase) (12/16/2019 5:27 AM CDT) [facility] CRP 5.7 <=10.0 mg/L [facility] Blood specimen (specimen) 12/16/2019 5:27 AM CDT 12/16/2019 5:27 AM CDT Vaishali Clemente LAB BLOOD ORDERABLES Final Result Performing Organization Address City/[facility] Co de Phone Number [facility] [address] Department [place] [address] * (ABNORMAL) CBC without differential (12/16/2019 5:26 AM CDT) [facility] WBC 5.4 3.8 - 9.9 K/cumm [facility] Hgb 9.2(L) 11.9 - 15.5 g/dL [facility] Hct 29.2(L) 35.6 - 45.5 % [facility] Plt 403(H) 150 - 400 K/cumm [facility] MPV 8.9(L) 9.1 - 12.3 fL [facility] RBC 3.08(L) 3.90 - 5.20 M/cumm [facility] MCV 94.8 81.3 - 96.4 fL [facility] MCH 29.9 27.1 - 33.3 pg [facility] MCHC 31.5(L) 32.3 - 35.7 g/dL [facility] RDW CV 17.9(H) 11.1 - 14.9 % [facility] RDW SD 62.2(H) 35.7 - 48.1 fL [facility] NRBC abs 0.00 0.00 - 0.01 K/cumm [facility] Blood specimen (specimen) 12/16/2019 5:26 AM CDT 12/16/2019 5:26 AM CDT us Vaishali Clemente DO LAB BLOOD ORDERABLES Edited Result - Final [facility] [address] [facility] [place] [address] * (ABNORMAL) Erythrocyte sedimentation rate (12/16/2019 5:26 AM CDT) Erythrocyte sedimentation rate 124(H) 1 - 30 mm/hr [facility] Blood specimen (specimen) 12/16/2019 5:26 AM CDT 12/16/2019 5:26 AM CDT us Vaishali Clemente DO LAB BLOOD ORDERABLES Final Result Performing Organization Address [facility] Co de Phone Number [facility] [address] Department [place] [address] * eGFR (12/09/2019 5:07 AM CDT) eGFR 96 mL/min/1.7 3 m2 [facility] Comment: Interpretive Data Reference Interval Normal ?>/= 90 mL/min/1.73m2 Mildly decreased* ? 60 - 89 mL/min/1.73m2 Mildly to moderately decreased ?45 - 59 mL/min/1.73m2 Moderately to severely decreased ??30 - 44 mL/min/1.73m2 Severely decreased ?15 - 29 mL/min/1.73m2 Kidney Failure ?< 15 ??mL/min/1.73m2 *Relative to young adult level If -Mexican multiply value by 1.16. Estimated glomerular filtration [...] Clemente DO LAB BLOOD ORDERABLES Final Result [facility] [address] [place] [address] * (ABNORMAL) CBC without differential (12/09/2019 5:07 AM CDT) WBC 8.3 3.8 - 9.9 K/cumm [facility] Hgb 9.1(L) 11.9 - 15.5 g/dL [facility] Hct 28.1(L) 35.6 - 45.5 % [facility] Plt 340 150 - 400 K/cumm [facility] MPV 8.8(L) 9.1 - 12.3 fL [facility] RBC 3.01(L) 3.90 - 5.20 M/cumm [facility] MCV 93.4 81.3 - 96.4 fL [facility] MCH 30.2 27.1 - 33.3 pg [facility] MCHC 32.4 32.3 - 35.7 g/dL [facility] RDW CV 18.0(H) 11.1 - 14.9 % [facility] RDW SD 57.9(H) 35.7 - 48.1 fL [facility] NRBC abs 0.00 0.00 - 0.01 K/cumm [facility] Blood specimen (specimen) 12/09/2019 5:07 AM CDT 12/09/2019 5:07 AM CDT Vaishali Clemente DO LAB BLOOD ORDERABLES Edited Result - Final [facility] [address] [place] [address] * (ABNORMAL) Comprehensive metabolic panel (12/09/2019 5:07 AM CDT) Sodium 136 135 - 145 mmol/L [facility] Potassium, pl 3.7 3.3 - 4.9 mmol/L [facility] Chloride 93(L) 97 - 110 mmol/L [facility] CO2 33(H) 22 - 32 mmol/L [facility] Anion gap 10 2 - 15 mmol/L [facility] BUN 34(H) 8 - 25 mg/dL [facility] Creatinine 0.60 0.60 - 1.10 mg/dL [facility] Glucose 76 70 - 199 mg/dL [facility] Comment: Interpretive Data Fasting glucose [...] 2017. Calcium 9.0 8.5 - 10.3 mg/dL [facility] Bilirubin, total 0.2 0.1 - 1.2 mg/dL [facility] Protein, pl 7.3 6.5 - 8.5 g/dL [facility] Albumin 2.7(L) 3.5 - 5.0 g/dL [facility] Alk phos 36(L) 40 - 130 Units/L [facility] ALT 10 7 - 45 Units/L [facility] AST 21 10 - 45 Units/L [facility] Blood specimen (specimen) 12/09/2019 5:07 AM CDT 12/09/2019 5:07 AM CDT Vaishali Clemente DO LAB BLOOD ORDERABLES Final Result Performing Organization Address [facility] Co de Phone Number [facility] [address] [facility] [place] [address] * (ABNORMAL) Erythrocyte sedimentation rate (12/09/2019 5:07 AM CDT) Erythrocyte sedimentation rate 123(H) 1 - 30 mm/hr [facility] Blood specimen (specimen) 12/09/2019 5:07 AM CDT 12/09/2019 5:07 AM CDT Vaishali Clemente DO LAB BLOOD ORDERABLES Final Result Performing Organization Address [facility] de Phone Number [facility] [address] [facility] [place] [address] * (ABNORMAL) CRP (acute phase) (12/09/2019 5:07 AM CDT) [facility] CRP 22.7(H) <=10.0 mg/L [facility] Blood specimen (specimen) 12/09/2019 5:07 AM CDT 12/09/2019 5:07 AM CDT Vaishali Clemente DO LAB BLOOD ORDERABLES Final Result Performing Organization Address [facility] de Phone Number [facility] [address] Department [place] [address] * eGFR (12/07/2019 3:30 AM CDT) eGFR 99 mL/min/1.7 3 m2 [facility] Comment: Interpretive Data Reference Interval Normal ?>/= 90 mL/min/1.73m2 Mildly decreased* ? 60 - 89 mL/min/1.73m2 Mildly to moderately decreased ?45 - 59 mL/min/1.73m2 Moderately to severely decreased ??30 - 44 mL/min/1.73m2 Severely decreased ?15 - 29 mL/min/1.73m2 Kidney Failure ?< 15 ??mL/min/1.73m2 *Relative to young adult level If -Mexican multiply value by 1.16. Estimated glomerular filtration [...] MD LAB BLOOD ORDERABLES Final Re sult [facility] [address] [place] [address] * Differential, auto (12/07/2019 3:30 AM CDT) Neutrophil abs 6.2 1.7 - 6.5 K/cumm [facility] Imm gran abs 0.1 0.0 - 0.1 K/cumm [facility] Lymphocyte abs 1.6 0.8 - 3.3 K/cumm [facility] Monocyte abs 0.6 0.2 - 0.8 K/cumm [facility] Eosinophil abs 0.4 0.0 - 0.5 K/cumm [facility] Basophil abs 0.1 0.0 - 0.1 K/cumm [facility] Neutrophil pct 70.2 % [facility] Comment: Interpretive Data Percent cell count reference ranges are not reported, since discordance with absolute values may lead to misinterpretation of CBC data. Current Interpretive Data was last revised on 2017. Imm gran pct 0.6 % [facility] Comment: Interpretive Data Percent cell count reference ranges are not reported, since discordance with absolute values may lead to misinterpretation of CBC data. Current Interpretive Data was last revised on 2017. Lymphocyte pct 18.1 % [facility] Comment: Interpretive Data Percent cell count reference ranges are not reported, since discordance with absolute values may lead to misinterpretation of CBC data. Current Interpretive Data was last revised on 2017. Monocyte pct 6.4 % [facility] Comment: Interpretive Data Percent cell count reference ranges are not reported, since discordance with absolute values may lead to misinterpretation of CBC data. Current Interpretive Data was last revised on 2017. Eosinophil pct 4.0 % [facility] Comment: Interpretive Data Percent cell count reference ranges are not reported, since discordance with absolute values may lead to misinterpretation of CBC data. Current Interpretive Data was last revised on 2017. Basophil pct 0.7 % [facility] Comment: Interpretive Data Percent cell count reference ranges are not reported, since discordance with absolute values may lead to misinterpretation of CBC data. Current Interpretive Data was last revised on 2017. Blood specimen (specimen) 12/07/2019 3:30 AM CDT 12/07/2019 3:51 AM CDT Bennett Saleh MD LAB BLOOD ORDERABLES Final Re sult [facility] [address] [place] [address] * (ABNORMAL) Basic metabolic panel (12/07/2019 3:30 AM CDT) Sodium 131(L) 135 - 145 mmol/L [facility] Potassium, pl 4.8 3.3 - 4.9 mmol/L [facility] Chloride 91(L) 97 - 110 mmol/L [facility] CO2 29 22 - 32 mmol/L [facility] Anion gap 11 2 - 15 mmol/L [facility] BUN 29(H) 8 - 25 mg/dL [facility] Creatinine 0.56(L) 0.60 - 1.10 mg/dL [facility] Glucose 125 70 - 199 mg/dL [facility] Comment: Interpretive Data Fasting glucose [...] 2017. Calcium 8.6 8.5 - 10.3 mg/dL [facility] Blood specimen (specimen) 12/07/2019 3:30 AM CDT 12/07/2019 3:51 AM CDT us Bennett Saleh MD LAB BLOOD ORDERABLES Final Re sult [facility] [address] [place] [address] * (ABNORMAL) CBC with auto differential (12/07/2019 3:30 AM CDT) WBC 8.9 3.8 - 9.9 K/cumm [facility] Hgb 8.7(L) 11.9 - 15.5 g/dL [facility] Hct 26.1(L) 35.6 - 45.5 % [facility] Plt 251 150 - 400 K/cumm [facility] MPV 9.4 9.1 - 12.3 fL [facility] RBC 2.84(L) 3.90 - 5.20 M/cumm [facility] MCV 91.9 81.3 - 96.4 fL [facility] MCH 30.6 27.1 - 33.3 pg [facility] MCHC 33.3 32.3 - 35.7 g/dL [facility] RDW CV 17.1(H) 11.1 - 14.9 % [facility] RDW SD 57.3(H) 35.7 - 48.1 fL [facility] NRBC abs 0.03(H) 0.00 - 0.01 K/cumm [facility] Blood specimen (specimen) 12/07/2019 3:30 AM CDT 12/07/2019 3:51 AM CDT Bennett Saleh MD LAB BLOOD ORDERABLES Final Re sult Performing Organization Address [facility] Co de Phone Number [facility] [address] [place] [employer] [place] [address] * (ABNORMAL) Glucose, random (12/06/2019 11:36 PM CDT) Glucose 65(L) 70 - 199 mg/dL [facility] Comment: Interpretive Data Fasting glucose [...] PM CDT 12/06/2019 11:36 PM CDT Narrative [facility] - 12/07/2019 12:02 AM CDT Per hypoglycemia protocol Bennett Saleh MD LAB BLOOD ORDERABLES Final Re sult Performing Organization Address [facility]/ZIP Co de Phone Number [facility] [address] [place] [employer] [place] [address] * Type and screen (12/06/2019 11:41 AM CDT) Veronica, indirect Negative [facility] ABO Rh O Positive [facility] Blood specimen (specimen) 12/06/2019 11:41 AM CDT 12/06/2019 12:09 PM CDT Narrative [facility] - 12/06/2019 12:48 PM CDT Has the patient had Daratumumab or Isatuximab in the past 6 months?->Unknown Bennett Saleh MD LAB BLOOD BANK TEST ORDERABLE S Final Result Performing Organization Address [facility] de Phone Number [facility] [address] [facility] [employer] [place], [place] [id number] * Prepare RBC: 1 Units (12/06/2019 10:16 AM CDT) [facility] Product code [id number] [facility] Unit Number [id number] [facility] Product Blood Type OPOS [facility] Dispense Status PRESUMED TRANSFUSED [facility] Blood specimen (specimen) 12/06/2019 10:16 AM CDT Narrative [facility] - 12/07/2019 10:15 AM CDT Are special requirements needed? (all products are leukoreduced)->No Date required:-[id number] LRRBC # of [id number] Reasons:-Hgb <7 g/dL} Bennett Saleh MD BLOOD BANK PRODUCT ORDERABLES Final Result Performing Organization Address [facility] de Phone Number [facility] [address] [facility] [place] [address] * eGFR (12/06/2019 4:32 AM CDT) [facility] eGFR 94 mL/min/1.7 3 m2 [facility] Comment: Interpretive Data Reference Interval Normal ?>/= 90 mL/min/1.73m2 Mildly decreased* ? 60 - 89 mL/min/1.73m2 Mildly to moderately decreased ?45 - 59 mL/min/1.73m2 Moderately to severely decreased ??30 - 44 mL/min/1.73m2 Severely decreased ?15 - 29 mL/min/1.73m2 Kidney Failure ?< 15 ??mL/min/1.73m2 *Relative to young adult level If -Mexican multiply value by 1.16. Estimated glomerular filtration [...] MD LAB BLOOD ORDERABLES Final Re sult [facility] [address] [place] [address] * Differential, auto (12/06/2019 4:32 AM CDT) Neutrophil abs 5.8 1.7 - 6.5 K/cumm [facility] Imm gran abs 0.1 0.0 - 0.1 K/cumm [facility] Lymphocyte abs 2.0 0.8 - 3.3 K/cumm [facility] Monocyte abs 0.8 0.2 - 0.8 K/cumm [facility] Eosinophil abs 0.3 0.0 - 0.5 K/cumm [facility] Basophil abs 0.1 0.0 - 0.1 K/cumm [facility] Neutrophil pct 64.2 % [facility] Comment: Interpretive Data Percent cell count reference ranges are not reported, since discordance with absolute values may lead to misinterpretation of CBC data. Current Interpretive Data was last revised on 2017. Imm gran pct 0.6 % [facility] Comment: Interpretive Data Percent cell count reference ranges are not reported, since discordance with absolute values may lead to misinterpretation of CBC data. Current Interpretive Data was last revised on 2017. Lymphocyte pct 21.9 % [facility] Comment: Interpretive Data Percent cell count reference ranges are not reported, since discordance with absolute values may lead to misinterpretation of CBC data. Current Interpretive Data was last revised on 2017. Monocyte pct 8.9 % [facility] Comment: Interpretive Data Percent cell count reference ranges are not reported, since discordance with absolute values may lead to misinterpretation of CBC data. Current Interpretive Data was last revised on 2017. Eosinophil pct 3.8 % [facility] Comment: Interpretive Data Percent cell count reference ranges are not reported, since discordance with absolute values may lead to misinterpretation of CBC data. Current Interpretive Data was last revised on 2017. Basophil pct 0.6 % [facility] Comment: Interpretive Data Percent cell count reference ranges are not reported, since discordance with absolute values may lead to misinterpretation of CBC data. Current Interpretive Data was last revised on 2017. Blood specimen (specimen) 12/06/2019 4:32 AM CDT 12/06/2019 4:32 AM CDT Bennett Saleh MD LAB BLOOD ORDERABLES Final Re sult [facility] [address] [place] [address] * (ABNORMAL) CBC with auto differential (12/06/2019 4:32 AM CDT) WBC 9.0 3.8 - 9.9 K/cumm [facility] Hgb 6.6(L) 11.9 - 15.5 g/dL [facility] Hct 20.8(L) 35.6 - 45.5 % [facility] Plt 294 150 - 400 K/cumm [facility] MPV 9.0(L) 9.1 - 12.3 fL [facility] RBC 2.24(L) 3.90 - 5.20 M/cumm [facility] MCV 92.9 81.3 - 96.4 fL [facility] MCH 29.5 27.1 - 33.3 pg [facility] MCHC 31.7(L) 32.3 - 35.7 g/dL [facility] RDW CV 18.0(H) 11.1 - 14.9 % [facility] RDW SD 61.8(H) 35.7 - 48.1 fL [facility] NRBC abs 0.00 0.00 - 0.01 K/cumm [facility] Blood specimen (specimen) 12/06/2019 4:32 AM CDT 12/06/2019 4:32 AM CDT us Bennett Saleh MD LAB BLOOD ORDERABLES Final Re sult [facility] [address] [place] [address] * (ABNORMAL) Basic metabolic panel (12/06/2019 4:32 AM CDT) Sodium 136 135 - 145 mmol/L [facility] Potassium, pl 4.0 3.3 - 4.9 mmol/L [facility] Chloride 92(L) 97 - 110 mmol/L [facility] CO2 34(H) 22 - 32 mmol/L [facility] Anion gap 10 2 - 15 mmol/L [facility] BUN 36(H) 8 - 25 mg/dL [facility] Creatinine 0.64 0.60 - 1.10 mg/dL [facility] Glucose 61(L) 70 - 199 mg/dL [facility] Comment: Interpretive Data Fasting glucose [...] 2017. Calcium 9.0 8.5 - 10.3 mg/dL [facility] Blood specimen (specimen) 12/06/2019 4:32 AM CDT 12/06/2019 4:32 AM CDT us Bennett Saleh MD LAB BLOOD ORDERABLES Final Re sult [facility] [address] Department [place] [address] * eGFR (12/05/2019 4:04 AM CDT) eGFR 92 mL/min/1.7 3 m2 [facility] Comment: Interpretive Data Reference Interval Normal ?>/= 90 mL/min/1.73m2 Mildly decreased* ? 60 - 89 mL/min/1.73m2 Mildly to moderately decreased ?45 - 59 mL/min/1.73m2 Moderately to severely decreased ??30 - 44 mL/min/1.73m2 Severely decreased ?15 - 29 mL/min/1.73m2 Kidney Failure ?< 15 ??mL/min/1.73m2 *Relative to young adult level If -Mexican multiply value by 1.16. Estimated glomerular filtration [...] MD LAB BLOOD ORDERABLES Final Re sult [facility] [address] [place] [address] * (ABNORMAL) Differential, auto (12/05/2019 4:04 AM CDT) Neutrophil abs 7.3(H) 1.7 - 6.5 K/cumm [facility] Imm gran abs 0.1 0.0 - 0.1 K/cumm [facility] Lymphocyte abs 1.8 0.8 - 3.3 K/cumm [facility] Monocyte abs 0.9(H) 0.2 - 0.8 K/cumm [facility] Eosinophil abs 0.1 0.0 - 0.5 K/cumm [facility] Basophil abs 0.1 0.0 - 0.1 K/cumm [facility] Neutrophil pct 71.8 % [facility] Comment: Interpretive Data Percent cell count reference ranges are not reported, since discordance with absolute values may lead to misinterpretation of CBC data. Current Interpretive Data was last revised on 2017. Imm gran pct 0.5 % [facility] Comment: Interpretive Data Percent cell count reference ranges are not reported, since discordance with absolute values may lead to misinterpretation of CBC data. Current Interpretive Data was last revised on 2017. Lymphocyte pct 17.1 % [facility] Comment: Interpretive Data Percent cell count reference ranges are not reported, since discordance with absolute values may lead to misinterpretation of CBC data. Current Interpretive Data was last revised on 2017. Monocyte pct 8.7 % [facility] Comment: Interpretive Data Percent cell count reference ranges are not reported, since discordance with absolute values may lead to misinterpretation of CBC data. Current Interpretive Data was last revised on 2017. Eosinophil pct 1.3 % [facility] Comment: Interpretive Data Percent cell count reference ranges are not reported, since discordance with absolute values may lead to misinterpretation of CBC data. Current Interpretive Data was last revised on 2017. Basophil pct 0.6 % [facility] Comment: Interpretive Data Percent cell count reference ranges are not reported, since discordance with absolute values may lead to misinterpretation of CBC data. Current Interpretive Data was last revised on 2017. Blood specimen (specimen) 12/05/2019 4:04 AM CDT 12/05/2019 4:04 AM CDT Bennett Saleh MD LAB BLOOD ORDERABLES Final Re sult [facility] [address] Department [place] [address] * (ABNORMAL) Basic metabolic panel (12/05/2019 4:04 AM CDT) Sodium 128(L) 135 - 145 mmol/L [facility] Potassium, pl 3.9 3.3 - 4.9 mmol/L [facility] Chloride 87(L) 97 - 110 mmol/L [facility] CO2 31 22 - 32 mmol/L [facility] Anion gap 10 2 - 15 mmol/L [facility] BUN 41(H) 8 - 25 mg/dL [facility] Creatinine 0.69 0.60 - 1.10 mg/dL [facility] Glucose 86 70 - 199 mg/dL [facility] Comment: Interpretive Data Fasting glucose [...] 2017. Calcium 8.9 8.5 - 10.3 mg/dL [facility] Blood specimen (specimen) 12/05/2019 4:04 AM CDT 12/05/2019 4:04 AM CDT Bennett Saleh MD LAB BLOOD ORDERABLES Final Re sult Performing Organization Address [facility]/ZIP Co de Phone Number [facility] [address] [facility] [place] [address] * (ABNORMAL) CBC with auto differential (12/05/2019 4:04 AM CDT) WBC 10.2(H) 3.8 - 9.9 K/cumm [facility] Hgb 7.0(L) 11.9 - 15.5 g/dL [facility] Hct 21.8(L) 35.6 - 45.5 % [facility] Plt 325 150 - 400 K/cumm [facility] MPV 9.2 9.1 - 12.3 fL [facility] RBC 2.36(L) 3.90 - 5.20 M/cumm [facility] MCV 92.4 81.3 - 96.4 fL [facility] MCH 29.7 27.1 - 33.3 pg [facility] MCHC 32.1(L) 32.3 - 35.7 g/dL [facility] RDW CV 18.1(H) 11.1 - 14.9 % [facility] RDW SD 60.3(H) 35.7 - 48.1 fL [facility] NRBC abs 0.00 0.00 - 0.01 K/cumm [facility] Blood specimen (specimen) 12/05/2019 4:04 AM CDT 12/05/2019 4:04 AM CDT Bennett Saleh MD LAB BLOOD ORDERABLES Final Re sult [facility] [address] Department [place] [address] * Surgical pathology (12/03/2019 3:53 PM CDT) Tissue (Amputation non-tramatic) 12/03/2019 3:16 PM CDT Comment:No preservative Narrative PATHOLOGY [facility] - 12/16/2019 10:07 PM CDT [place] [id number] [facility], [place], [place] ??[address] Tele: ?? Marti Mueller MD - [employer] PATHOLOGY REPORT Patient Name: ??IRIS PASCUAL Address: ??[address] [place] [address] ??[phone] Gender: ??F : ??1955 (Age: 64) Service: ??LTC Location: ??572, ?? Hospital #: ??[id number] Patient Type: ??MB OP in a Bed Accession #: ? [id number] Taken: ? 12/03/2019 Received ? 12/05/2019 Reported: ? 12/16/2019 Physician(s): ? Dr. Arley Peña M.D. Zeke Puente MD DIAGNOSIS: Extremity, lower, right leg, [id number] amputation: ? -Acute osteomyelitis -Skin, with acute [...] anterior artery is stenosed by yellow plaque. ??[employer] sections are submitted as follows: ??A1 - bone marrow from bony margin of resection; A2 - skin and soft tissue from resection surface; A3 - skin from heel of foot; A4 ??bone deep to the necrotic skin; A5 - popliteal, posterior and anterior vessels. ??Cassettes A4 and A5 are submitted for decalcification. [facility]/12/06/2019 17:28 ? [facility] MICROSCOPIC DESCRIPTION: Microscopic examination supports the above captioned diagnosis. ??Sections of bone marrow scrapings from bony margin appear viable. Clerical Data Follows A; [id number], [id number] REPORT IMAGES AND/OR SCANNED DOCUMENTS ONLY VIEWABLE IN PDF FORMAT The immunohistochemical test(s) cited in this report, if any, was developed and its performance characteristics determined by [facility] Pathology Department. ??It has not been cleared or approved by the U.S. Food and Drug Administration. ??The FDA has determined that such clearance or approval is not necessary. ??This test is used for clinical purposes. ??It should not be regarded as investigational or for research. ??[facility] Laboratory is certified under the Clinical Laboratory Improvement Amendments of 1988 (CLIA) as qualified to perform high complexity testing. ??Immunostains were performed on formalin-fixed paraffin embedded tissue using a polymer diaminobenzidine chromogen detection system. Antibodies used may include clone SP1 (rabbit monoclonal, estrogen receptor), clone 1E2 (rabbit monoclonal progesterone receptor), Ki-67 (rabbit monoclonal, 30-9), and [id number] (rabbit polyclonal, c-kit). us Alrey Peña MD LAB PATHOLOGY ORDERABLES Final Result PATHOLOGY [facility] Laboratory Receiving [address] [place] [address] * Prepare RBC: 1 Units (12/03/2019 3:17 PM CDT) Product code [id number] [facility] Unit Number [id number] 3-T [facility] Product Blood Type OPOS [facility] Dispense Status RETURNED [facility] Blood specimen (specimen) 12/03/2019 3:17 PM CDT Narrative [facility] - 12/05/2019 7:28 AM CDT Are special requirements needed? (all products are leukoreduced)->No Date required:-[id number] LRRBC # of [id number] Reasons:-Intra-op transfusion} us Amanda Jefferson MD BLOOD BANK PRODUCT ORDERABLE S Final Result Performing Organization Address [facility] Co de Phone Number [facility] [address] Department [place] [address] * Check Sample (12/03/2019 5:41 AM CDT) ABO Rh O Positive [facility] HCLL OTHER 12/03/2019 5:41 AM CDT 12/03/2019 7:18 AM CDT us Bennett Saleh MD LAB BLOOD ORDERABLES Final Re sult Performing Organization Address [facility] de Phone Number [facility] [address] [place] [address] * eGFR (12/03/2019 5:41 AM CDT) eGFR 93 mL/min/1.7 3 m2 [facility] Comment: Interpretive Data Reference Interval Normal ?>/= 90 mL/min/1.73m2 Mildly decreased* ? 60 - 89 mL/min/1.73m2 Mildly to moderately decreased ?45 - 59 mL/min/1.73m2 Moderately to severely decreased ??30 - 44 mL/min/1.73m2 Severely decreased ?15 - 29 mL/min/1.73m2 Kidney Failure ?< 15 ??mL/min/1.73m2 *Relative to young adult level If -Mexican multiply value by 1.16. Estimated glomerular filtration [...] MD LAB BLOOD ORDERABLES Final Re sult [facility] [address] [place] [address] * Differential, auto (12/03/2019 5:41 AM CDT) Neutrophil abs 5.8 1.7 - 6.5 K/cumm [facility] Imm gran abs 0.0 0.0 - 0.1 K/cumm [facility] Lymphocyte abs 1.4 0.8 - 3.3 K/cumm [facility] Monocyte abs 0.6 0.2 - 0.8 K/cumm [facility] Eosinophil abs 0.2 0.0 - 0.5 K/cumm [facility] Basophil abs 0.1 0.0 - 0.1 K/cumm [facility] Neutrophil pct 71.2 % [facility] Comment: Interpretive Data Percent cell count reference ranges are not reported, since discordance with absolute values may lead to misinterpretation of CBC data. Current Interpretive Data was last revised on 2017. Imm gran pct 0.2 % [facility] Comment: Interpretive Data Percent cell count reference ranges are not reported, since discordance with absolute values may lead to misinterpretation of CBC data. Current Interpretive Data was last revised on 2017. Lymphocyte pct 17.2 % [facility] Comment: Interpretive Data Percent cell count reference ranges are not reported, since discordance with absolute values may lead to misinterpretation of CBC data. Current Interpretive Data was last revised on 2017. Monocyte pct 7.7 % [facility] Comment: Interpretive Data Percent cell count reference ranges are not reported, since discordance with absolute values may lead to misinterpretation of CBC data. Current Interpretive Data was last revised on 2017. Eosinophil pct 2.7 % [facility] Comment: Interpretive Data Percent cell count reference ranges are not reported, since discordance with absolute values may lead to misinterpretation of CBC data. Current Interpretive Data was last revised on 2017. Basophil pct 1.0 % [facility] Comment: Interpretive Data Percent cell count reference ranges are not reported, since discordance with absolute values may lead to misinterpretation of CBC data. Current Interpretive Data was last revised on 2017. Blood specimen (specimen) 12/03/2019 5:41 AM CDT 12/03/2019 5:41 AM CDT us Bennett Saleh MD LAB BLOOD ORDERABLES Final Re sult [facility] [address] [place] [address] * 25-Hydroxyvitamin D2 and D3, serum (12/03/2019 5:41 AM CDT) 25-OH Vit D, D2 fraction <4.0 ng/mL [facility] 25-OH Vit D, D3 fraction 33 ng/mL [facility] 25-OH Vit D 33 ng/mL [facility] Comment: REFERENCE VALUE 25-HYDROXY D TOTAL (D2+D3) Optimum levels in the healthy population are 20-50, patients with bone disease may benefit from higher levels within this range. ADDITIONAL INFORMATION This test was developed and its performance characteristics determined by [facility] in a manner consistent with CLIA requirements. This test has not been cleared or approved by the U.S. Food and Drug Administration. Test Performed by: [facility] - [facility] [address] [place] [address] Check Grader: Abhijit Berg M.D. Ph.D.; CLIA# [id number] Blood specimen (specimen) 12/03/2019 5:41 AM CDT 12/03/2019 5:41 AM CDT us Bennett Saleh MD LAB BLOOD ORDERABLES Final Re sult [facility] [address] [place] [address] * (ABNORMAL) Comprehensive metabolic panel (12/03/2019 5:41 AM CDT) Sodium 139 135 - 145 mmol/L [facility] Potassium, pl 3.7 3.3 - 4.9 mmol/L [facility] Chloride 94(L) 97 - 110 mmol/L [facility] CO2 33(H) 22 - 32 mmol/L [facility] Anion gap 12 2 - 15 mmol/L [facility] BUN 21 8 - 25 mg/dL [facility] Creatinine 0.67 0.60 - 1.10 mg/dL [facility] Glucose 75 70 - 199 mg/dL [facility] Comment: Interpretive Data Fasting glucose [...] 2017. Calcium 9.3 8.5 - 10.3 mg/dL [facility] Bilirubin, total 0.2 0.1 - 1.2 mg/dL [facility] Protein, pl 8.1 6.5 - 8.5 g/dL [facility] Albumin 3.0(L) 3.5 - 5.0 g/dL [facility] Alk phos 31(L) 40 - 130 Units/L [facility] ALT 12 7 - 45 Units/L [facility] AST 23 10 - 45 Units/L [facility] Blood specimen (specimen) 12/03/2019 5:41 AM CDT 12/03/2019 5:41 AM CDT us Bennett Saleh MD LAB BLOOD ORDERABLES Final Re sult [facility] [address] [place] [address] * (ABNORMAL) CBC with auto differential (12/03/2019 5:41 AM CDT) WBC 8.2 3.8 - 9.9 K/cumm [facility] Hgb 9.3(L) 11.9 - 15.5 g/dL [facility] Hct 29.0(L) 35.6 - 45.5 % [facility] Plt 408(H) 150 - 400 K/cumm [facility] MPV 9.1 9.1 - 12.3 fL [facility] RBC 3.17(L) 3.90 - 5.20 M/cumm [facility] MCV 91.5 81.3 - 96.4 fL [facility] MCH 29.3 27.1 - 33.3 pg [facility] MCHC 32.1(L) 32.3 - 35.7 g/dL [facility] RDW CV 17.9(H) 11.1 - 14.9 % [facility] RDW SD 60.4(H) 35.7 - 48.1 fL [facility] NRBC abs 0.00 0.00 - 0.01 K/cumm [facility] Blood specimen (specimen) 12/03/2019 5:41 AM CDT 12/03/2019 5:41 AM CDT Bennett Saleh MD LAB BLOOD ORDERABLES Final Re sult Performing Organization Address [facility]/ZIP Co de Phone Number [facility] [address] [place] [employer] [place] [address] * eGFR (12/02/2019 7:19 AM CDT) eGFR 102 mL/min/1.7 3 m2 [facility] Comment: Interpretive Data Reference Interval Normal ?>/= 90 mL/min/1.73m2 Mildly decreased* ? 60 - 89 mL/min/1.73m2 Mildly to moderately decreased ?45 - 59 mL/min/1.73m2 Moderately to severely decreased ??30 - 44 mL/min/1.73m2 Severely decreased ?15 - 29 mL/min/1.73m2 Kidney Failure ?< 15 ??mL/min/1.73m2 *Relative to young adult level If -Mexican multiply value by 1.16. Estimated glomerular filtration [...] ORDERABLES Final Re sult Performing Organization Address [facility]/ZIP Co de Phone Number [facility] [address] [employer] [place], [place] [id number] * (ABNORMAL) Comprehensive metabolic panel (12/02/2019 7:19 AM CDT) Sodium 140 135 - 145 mmol/L [facility] Potassium, pl 3.6 3.3 - 4.9 mmol/L [facility] Chloride 95(L) 97 - 110 mmol/L [facility] CO2 32 22 - 32 mmol/L [facility] Anion gap 13 2 - 15 mmol/L [facility] BUN 27(H) 8 - 25 mg/dL [facility] Creatinine 0.50(L) 0.60 - 1.10 mg/dL [facility] Glucose 120 70 - 199 mg/dL [facility] Comment: Interpretive Data Fasting glucose [...] 2017. Calcium 9.1 8.5 - 10.3 mg/dL [facility] Bilirubin, total 0.2 0.1 - 1.2 mg/dL [facility] Protein, pl 7.7 6.5 - 8.5 g/dL [facility] Albumin 3.2(L) 3.5 - 5.0 g/dL [facility] Alk phos 32(L) 40 - 130 Units/L [facility] ALT 13 7 - 45 Units/L [facility] AST 20 10 - 45 Units/L [facility] Blood specimen (specimen) 12/02/2019 7:19 AM CDT 12/02/2019 7:19 AM CDT us Bennett Saleh MD LAB BLOOD ORDERABLES Final Re sult [facility] [address] Department [place] [address] * (ABNORMAL) CRP (acute phase) (12/02/2019 7:19 AM CDT) Pathologist [facility] CRP 15.3(H) <=10.0 mg/L [facility] Blood specimen (specimen) 12/02/2019 7:19 AM CDT 12/02/2019 7:19 AM CDT us Vaishali Clemente DO LAB BLOOD ORDERABLES Final Result [facility] [address] Department [place] [address] * Differential, auto (12/02/2019 7:11 AM CDT) Pathologist [facility] Neutrophil abs 4.2 1.7 - 6.5 K/cumm [facility] Imm gran abs 0.0 0.0 - 0.1 K/cumm [facility] Lymphocyte abs 1.5 0.8 - 3.3 K/cumm [facility] Monocyte abs 0.6 0.2 - 0.8 K/cumm [facility] Eosinophil abs 0.2 0.0 - 0.5 K/cumm [facility] Basophil abs 0.1 0.0 - 0.1 K/cumm [facility] Neutrophil pct 64.2 % [facility] Comment: Interpretive Data Percent cell count reference ranges are not reported, since discordance with absolute values may lead to misinterpretation of CBC data. Current Interpretive Data was last revised on 2017. Imm gran pct 0.2 % [facility] Comment: Interpretive Data Percent cell count reference ranges are not reported, since discordance with absolute values may lead to misinterpretation of CBC data. Current Interpretive Data was last revised on 2017. Lymphocyte pct 22.9 % [facility] Comment: Interpretive Data Percent cell count reference ranges are not reported, since discordance with absolute values may lead to misinterpretation of CBC data. Current Interpretive Data was last revised on 2017. Monocyte pct 8.4 % [facility] Comment: Interpretive Data Percent cell count reference ranges are not reported, since discordance with absolute values may lead to misinterpretation of CBC data. Current Interpretive Data was last revised on 2017. Eosinophil pct 2.9 % [facility] Comment: Interpretive Data Percent cell count reference ranges are not reported, since discordance with absolute values may lead to misinterpretation of CBC data. Current Interpretive Data was last revised on 2017. Basophil pct 1.4 % [facility] Comment: Interpretive Data Percent cell count reference ranges are not reported, since discordance with absolute values may lead to misinterpretation of CBC data. Current Interpretive Data was last revised on 2017. Blood specimen (specimen) 12/02/2019 7:11 AM CDT 12/02/2019 7:11 AM CDT Bennett Saleh MD LAB BLOOD ORDERABLES Final Re sult [facility] [address] [place] [address] * (ABNORMAL) CBC with auto differential (12/02/2019 7:11 AM CDT) WBC 6.5 3.8 - 9.9 K/cumm [facility] Hgb 9.5(L) 11.9 - 15.5 g/dL [facility] Hct 30.9(L) 35.6 - 45.5 % [facility] Plt 404(H) 150 - 400 K/cumm [facility] MPV 9.5 9.1 - 12.3 fL [facility] RBC 3.24(L) 3.90 - 5.20 M/cumm [facility] MCV 95.4 81.3 - 96.4 fL [facility] MCH 29.3 27.1 - 33.3 pg [facility] MCHC 30.7(L) 32.3 - 35.7 g/dL [facility] RDW CV 18.0(H) 11.1 - 14.9 % [facility] RDW SD 62.8(H) 35.7 - 48.1 fL [facility] NRBC abs 0.00 0.00 - 0.01 K/cumm [facility] Blood specimen (specimen) 12/02/2019 7:11 AM CDT 12/02/2019 7:11 AM CDT us Bennett Saleh MD LAB BLOOD ORDERABLES Final Re sult Performing Organization Address [facility]/ZIP Co de Phone Number [facility] [address] Department of [employer] [place], [place] [id number] * (ABNORMAL) Erythrocyte sedimentation rate (12/02/2019 7:11 AM CDT) Pathologist [facility] Erythrocyte sedimentation rate 129(H) 1 - 30 mm/hr [facility] Blood specimen (specimen) 12/02/2019 7:11 AM CDT 12/02/2019 7:11 AM CDT us Vaishali Clemente DO LAB BLOOD ORDERABLES Final Result Performing Organization Address [facility] Co de Phone Number [facility] [address] Department of [employer] [place], [place] [id number] * Type and screen (12/01/2019 6:34 PM CDT) Pathologist [facility] Veronica, indirect Negative [facility] ABO Rh O Positive [facility] Blood specimen (specimen) 12/01/2019 6:34 PM CDT 12/01/2019 6:35 PM CDT Narrative [facility] - 12/01/2019 7:12 PM CDT Has the patient had Daratumumab or Isatuximab in the past 6 months?->Unknown us Arley Peña MD LAB BLOOD BANK TEST ORDERABLES Final Result Performing Organization Address [facility] Co de Phone Number [facility] [address] Department of [employer] [place], [place] [id number] * (ABNORMAL) COVID-19 Coronavirus RNA Nasopharyngeal (11/30/2019 3:18 AM CDT) Pathologist [facility] [facility] COVID-19 RNA Detected( A) [facility] Comment: Interpretive Data Testing performed at [facility] Molecular Infectious Disease Laboratory. The 2019-Novel Coronavirus [...] last revised on 2019. Testing performed by: [facility], [address] [facility] [place]., [address] Nasopharyngeal 11/30/2019 3: 18 AM CDT 11/30/2019 8:02 AM CDT Narrative [facility] - 11/30/2019 5:16 PM CDT Is the patient experiencing any symptoms consistent with COVID (eg. Fever, cough, shortness of breath)?->No What is the reason for testing?->Screening prior to scheduled (>12 hr) surgery or procedure Arley Peña MD LAB MICROBIOLOGY - [facility] Final Result [facility] [address] [place] [address] * COVID-19 Coronavirus RNA Nasopharyngeal (11/28/2019 4:00 PM CDT) COVID-19 RNA Not Detected [facility] Comment: Interpretive Data Testing performed at [facility] Molecular Infectious Disease Laboratory. The 2019-Novel Coronavirus [...] last revised on 2019. Testing performed by: [facility], [address] [place] [address], [place]., [address] Nasopharyngeal 11/28/2019 4: 00 PM CDT 11/28/2019 7:42 PM CDT Narrative [facility] - 11/29/2019 2:22 AM CDT Needs negative test to remove from isolation Is the patient experiencing any symptoms consistent with COVID (eg. Fever, cough, shortness of breath)?->No What is the reason for testing?->Discharge planning/removal of isolation Bennett Saleh MD LAB MICROBIOLOGY - GENERAL OR DERABLES Final Result Performing Organization Address [facility]/ZIP Co de Phone Number [facility] [address] [place] [address] * (ABNORMAL) Blood gas, arterial (11/26/2019 11:15 AM CDT) pH, Art 7.42 7.35 - 7.45 [facility] PCO2, Arterial 44 35 - 45 mmHg [facility] PO2, Arterial 74(L) 83 - 108 mmHg [facility] HCO3 Art (Calculated) 28 20 - 30 mmol/L [facility] BE, art 3 mmol/L [facility] Comment: Interpretive Data No Reference Range Established Current Interpretive Data was last revised on 2017 O2 Sat Art (Calculated) 95 94 - 98 % [facility] Blood specimen (specimen) 11/26/2019 11:15 AM CDT 11/26/2019 11:22 AM CDT Bennett Saleh MD LAB BLOOD ORDERABLES Final Re sult Performing Organization Address [facility]/ZIP Co de Phone Number [facility] [address] Department [place] [address] * eGFR (11/25/2019 4:49 AM CDT) eGFR 93 mL/min/1.7 3 m2 [facility] Comment: Interpretive Data Reference Interval Normal ?>/= 90 mL/min/1.73m2 Mildly decreased* ? 60 - 89 mL/min/1.73m2 Mildly to moderately decreased ?45 - 59 mL/min/1.73m2 Moderately to severely decreased ??30 - 44 mL/min/1.73m2 Severely decreased ?15 - 29 mL/min/1.73m2 Kidney Failure ?< 15 ??mL/min/1.73m2 *Relative to young adult level If -Mexican multiply value by 1.16. Estimated glomerular filtration [...] Clemente DO LAB BLOOD ORDERABLES Final Result [facility] [address] [place] [address] * Differential, auto (11/25/2019 4:49 AM CDT) Neutrophil abs 5.9 1.7 - 6.5 K/cumm [facility] Imm gran abs 0.0 0.0 - 0.1 K/cumm [facility] Lymphocyte abs 1.7 0.8 - 3.3 K/cumm [facility] Monocyte abs 0.5 0.2 - 0.8 K/cumm [facility] Eosinophil abs 0.2 0.0 - 0.5 K/cumm [facility] Basophil abs 0.1 0.0 - 0.1 K/cumm [facility] Neutrophil pct 70.1 % [facility] Comment: Interpretive Data Percent cell count reference ranges are not reported, since discordance with absolute values may lead to misinterpretation of CBC data. Current Interpretive Data was last revised on 2017. Imm gran pct 0.2 % [facility] Comment: Interpretive Data Percent cell count reference ranges are not reported, since discordance with absolute values may lead to misinterpretation of CBC data. Current Interpretive Data was last revised on 2017. Lymphocyte pct 20.4 % [facility] Comment: Interpretive Data Percent cell count reference ranges are not reported, since discordance with absolute values may lead to misinterpretation of CBC data. Current Interpretive Data was last revised on 2017. Monocyte pct 6.4 % [facility] Comment: Interpretive Data Percent cell count reference ranges are not reported, since discordance with absolute values may lead to misinterpretation of CBC data. Current Interpretive Data was last revised on 2017. Eosinophil pct 1.8 % [facility] Comment: Interpretive Data Percent cell count reference ranges are not reported, since discordance with absolute values may lead to misinterpretation of CBC data. Current Interpretive Data was last revised on 2017. Basophil pct 1.1 % [facility] Comment: Interpretive Data Percent cell count reference ranges are not reported, since discordance with absolute values may lead to misinterpretation of CBC data. Current Interpretive Data was last revised on 2017. Blood specimen (specimen) 11/25/2019 4:49 AM CDT 11/25/2019 4:49 AM CDT Vaishali Clemente DO LAB BLOOD ORDERABLES Final Result [facility] [address] Department [place] [address] * (ABNORMAL) Erythrocyte sedimentation rate (11/25/2019 4:49 AM CDT) Erythrocyte sedimentation rate 101(H) 1 - 30 mm/hr [facility] Blood specimen (specimen) 11/25/2019 4:49 AM CDT 11/25/2019 4:49 AM CDT Vaishali Clemente DO LAB BLOOD ORDERABLES Final Result Performing Organization Address City/[facility]/ZIP Co de Phone Number [facility] [address] [place] [address] * (ABNORMAL) CRP (acute phase) (11/25/2019 4:49 AM CDT) CRP 27.7(H) <=10.0 mg/L [facility] Blood specimen (specimen) 11/25/2019 4:49 AM CDT 11/25/2019 4:49 AM CDT Vaishali Clemente DO LAB BLOOD ORDERABLES Final Result Performing Organization Address [facility] de Phone Number [facility] [address] [place] [address] * (ABNORMAL) Comprehensive metabolic panel (11/25/2019 4:49 AM CDT) Sodium 140 135 - 145 mmol/L [facility] Potassium, pl 3.4 3.3 - 4.9 mmol/L [facility] Chloride 95(L) 97 - 110 mmol/L [facility] CO2 31 22 - 32 mmol/L [facility] Anion gap 14 2 - 15 mmol/L [facility] BUN 32(H) 8 - 25 mg/dL [facility] Creatinine 0.66 0.60 - 1.10 mg/dL [facility] Glucose 171 70 - 199 mg/dL [facility] Comment: Interpretive Data Fasting glucose [...] 2017. Calcium 8.8 8.5 - 10.3 mg/dL [facility] Bilirubin, total 0.2 0.1 - 1.2 mg/dL [facility] Protein, pl 7.7 6.5 - 8.5 g/dL [facility] Albumin 3.2(L) 3.5 - 5.0 g/dL [facility] Alk phos 38(L) 40 - 130 Units/L [facility] ALT 14 7 - 45 Units/L [facility] AST 24 10 - 45 Units/L [facility] Comment:Slightly Hemolyzed S pecimen Blood specimen (specimen) 11/25/2019 4:49 AM CDT 11/25/2019 4:49 AM CDT us Vaishali Clemente DO LAB BLOOD ORDERABLES Final Result [facility] [address] [place] [address] * (ABNORMAL) CBC with auto differential (11/25/2019 4:49 AM CDT) WBC 8.5 3.8 - 9.9 K/cumm [facility] Hgb 8.1(L) 11.9 - 15.5 g/dL [facility] Hct 25.4(L) 35.6 - 45.5 % [facility] Plt 461(H) 150 - 400 K/cumm [facility] MPV 9.3 9.1 - 12.3 fL [facility] RBC 2.79(L) 3.90 - 5.20 M/cumm [facility] MCV 91.0 81.3 - 96.4 fL [facility] MCH 29.0 27.1 - 33.3 pg [facility] MCHC 31.9(L) 32.3 - 35.7 g/dL [facility] RDW CV 16.9(H) 11.1 - 14.9 % [facility] RDW SD 54.4(H) 35.7 - 48.1 fL [facility] NRBC abs 0.00 0.00 - 0.01 K/cumm [facility] Blood specimen (specimen) 11/25/2019 4:49 AM CDT 11/25/2019 4:49 AM CDT Vaishali Clemente DO LAB BLOOD ORDERABLES Final Result Performing Organization Address [facility]/ZIP Co de Phone Number [facility] [address] Department [place] [address] * (ABNORMAL) Iron profile w/ IBC (11/22/2019 5:52 AM CDT) Iron 40 35 - 145 mcg/dL [facility] TIBC 127(L) 250 - 400 mcg/dL [facility] Transferrin saturation 32 20 - 50 % [facility] Blood specimen (specimen) 11/22/2019 5:52 AM CDT 11/22/2019 5:52 AM CDT Bennett Saleh MD LAB BLOOD ORDERABLES Final Re sult Performing Organization Address [facility] Co de Phone Number [facility] [address] [place] [address] * XR Chest 1 Vw (11/22/2019 5:17 [...] AM CDT) eGFR 94 mL/min/1.7 3 [facility]2 [facility] Comment: Interpretive Data Reference Interval Normal ?>/= 90 mL/min/1.73m2 Mildly decreased* ? 60 - 89 mL/min/1.73m2 Mildly to moderately decreased ?45 - 59 mL/min/1.73m2 Moderately to severely decreased ??30 - 44 mL/min/1.73m2 Severely decreased ?15 - 29 mL/min/1.73m2 Kidney Failure ?< 15 ??mL/min/1.73m2 *Relative to young adult level If -Mexican multiply value by 1.16. Estimated glomerular filtration [...] ORDERABLES Final Re sult Performing Organization Address [facility] Co de Phone Number [facility] [address] [facility] [employer] [place], [place] [id number] * (ABNORMAL) TSH (11/22/2019 3:38 AM CDT) Thyroid Stimulating Hormone 13.03(H) 0.30 - 4.20 mcIUnit/mL [facility] Blood specimen (specimen) 11/22/2019 3:38 AM CDT 11/22/2019 3:38 AM CDT Bennett Saleh MD LAB BLOOD ORDERABLES Final Re sult Performing Organization Address [facility] Co de Phone Number [facility] [address] [place] [employer] [address] * Magnesium (11/22/2019 3:38 AM CDT) Magnesium 1.8 1.4 - 2.5 mg/dL [facility] Blood specimen (specimen) 11/22/2019 3:38 AM CDT 11/22/2019 3:38 AM CDT Bennett Saleh MD LAB BLOOD ORDERABLES Final Re sult Performing Organization Address [facility] Co de Phone Number [facility] [address] Department [place] [address] * (ABNORMAL) Comprehensive metabolic panel (11/22/2019 3:38 AM CDT) Sodium 131(L) 135 - 145 mmol/L [facility] Potassium, pl 4.1 3.3 - 4.9 mmol/L [facility] Comment:Moderately Hemolyzed Specimen Chloride 90(L) 97 - 110 mmol/L [facility] CO2 30 22 - 32 mmol/L [facility] Anion gap 11 2 - 15 mmol/L [facility] BUN 30(H) 8 - 25 mg/dL [facility] Creatinine 0.65 0.60 - 1.10 mg/dL [facility] Glucose 105 70 - 199 mg/dL [facility] Comment: Interpretive Data Fasting glucose [...] 2017. Calcium 8.7 8.5 - 10.3 mg/dL [facility] Bilirubin, total 0.2 0.1 - 1.2 mg/dL [facility] Protein, pl 7.6 6.5 - 8.5 g/dL [facility] Albumin 2.6(L) 3.5 - 5.0 g/dL [facility] Alk phos 39(L) 40 - 130 Units/L [facility] ALT 18 7 - 45 Units/L [facility] Comment:Moderately Hemolyzed Specimen AST 49(H) 10 - 45 Units/L [facility] Comment:Moderately Hemolyzed Specimen Blood specimen (specimen) 11/22/2019 3:38 AM CDT 11/22/2019 3:38 AM CDT us Bennett Saleh MD LAB BLOOD ORDERABLES Final Re sult [facility] [address] Department of Laboratories [place] [id number] * Differential, auto (11/22/2019 3:37 AM CDT) Neutrophil abs 6.1 1.7 - 6.5 K/cumm [facility] Imm gran abs 0.0 0.0 - 0.1 K/cumm [facility] Lymphocyte abs 1.7 0.8 - 3.3 K/cumm [facility] Monocyte abs 0.5 0.2 - 0.8 K/cumm [facility] Eosinophil abs 0.2 0.0 - 0.5 K/cumm [facility] Basophil abs 0.1 0.0 - 0.1 K/cumm [facility] Neutrophil pct 70.9 % [facility] Comment: Interpretive Data Percent cell count reference ranges are not reported, since discordance with absolute values may lead to misinterpretation of CBC data. Current Interpretive Data was last revised on 2017. Imm gran pct 0.5 % [facility] Comment: Interpretive Data Percent cell count reference ranges are not reported, since discordance with absolute values may lead to misinterpretation of CBC data. Current Interpretive Data was last revised on 2017. Lymphocyte pct 19.5 % [facility] Comment: Interpretive Data Percent cell count reference ranges are not reported, since discordance with absolute values may lead to misinterpretation of CBC data. Current Interpretive Data was last revised on 2017. Monocyte pct 6.1 % [facility] Comment: Interpretive Data Percent cell count reference ranges are not reported, since discordance with absolute values may lead to misinterpretation of CBC data. Current Interpretive Data was last revised on 2017. Eosinophil pct 2.1 % [facility] Comment: Interpretive Data Percent cell count reference ranges are not reported, since discordance with absolute values may lead to misinterpretation of CBC data. Current Interpretive Data was last revised on 2017. Basophil pct 0.9 % [facility] Comment: Interpretive Data Percent cell count reference ranges are not reported, since discordance with absolute values may lead to misinterpretation of CBC data. Current Interpretive Data was last revised on 2017. Blood specimen (specimen) 11/22/2019 3:37 AM CDT 11/22/2019 3:37 AM CDT Bennett Saleh MD LAB BLOOD ORDERABLES Final Re sult Performing Organization Address City/[facility]/ZIP Co de Phone Number [facility] [address] [place] [address] * (ABNORMAL) CBC with auto differential (11/22/2019 3:37 AM CDT) WBC 8.6 3.8 - 9.9 K/cumm [facility] Hgb 8.0(L) 11.9 - 15.5 g/dL [facility] Hct 25.6(L) 35.6 - 45.5 % [facility] Plt 478(H) 150 - 400 K/cumm [facility] MPV 9.0(L) 9.1 - 12.3 fL [facility] RBC 2.75(L) 3.90 - 5.20 M/cumm [facility] MCV 93.1 81.3 - 96.4 fL [facility] MCH 29.1 27.1 - 33.3 pg [facility] MCHC 31.3(L) 32.3 - 35.7 g/dL [facility] RDW CV 16.2(H) 11.1 - 14.9 % [facility] RDW SD 53.8(H) 35.7 - 48.1 fL [facility] NRBC abs 0.00 0.00 - 0.01 K/cumm [facility] Blood specimen (specimen) 11/22/2019 3:37 AM CDT 11/22/2019 3:37 AM CDT Bennett Saleh MD LAB BLOOD ORDERABLES Final Re sult [facility] [address] [place] [address] documented in this encounter Visit Diagnoses Diagnosis [...] documented as of this encounter Care Teams Retail Sales Merchandiser Relationship Specialty Start Date End Date Zeke Puente MD [address] [place] [address] PCP - General 12/02/18 Damon Swanson DO [address] [place] [id number] Medical Oncologist/E Commerce Project Manager Hematology and Oncology 10/25/17 Karl Smith Jr., MD [address] [place] [address] Surgeon General Surgery 11/07/19 documented as of this encounter
--- OUTSIDE RECORDS SUMMARY | 2024-02-27 03:15 | XMS_ITS | Encounter Summary ---
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
--- OUTSIDE RECORDS SUMMARY | 2024-02-27 03:15 | XMS_ITS | Encounter Summary ---
Author Organization [facility] Healthcare Address [address] [place] [address] Care Team Providers Care Top Spotter Name Role Phone Damon Swanson DO Unavailable [phone] Zeke Puente MD Primary Care Provider [phone] Encounter Details Date Type Department Care Team (Late st Contact Info) Description 12/02/2018 2:50 PM CDT - 12/02/2018 6:24 PM CDT Hospital Encounter [id number] [place] [address] Unknown, BhavyaBrent Rodríguez DO [address] [facility] [place] [address] Discharge Disposition: Discharge to home or self [...] on file Legal Sex Female 12:30 PM [employer] Gender Identity Not on file Sexual Orientation [...] B-Hydroxybutyr ate 0.1 0.0 - 0.4 mmol/L [facility] 12/02/2018 3:06 PM CDT 12/02/2018 3:11 PM CDT Narrative Resulting Agency Comment ER us Brent Ruby DO LAB BLOOD ORDERABLES Final Resu lt [id number] [place] [address], [facility] [phone] * (ABNORMAL) Comprehensive metabolic panel (12/02/2018 3:06 PM CDT) Sodium 133(L) 135 - 145 mmol/L [facility] Potassium 4.0 3.3 - 5.1 mmol/L [facility] Chloride 90(L) 96 - 108 mmol/L [facility] Carbon Dioxide 30 22 - 32 mmol/L [facility] Anion Gap 13 7 - 16 [facility] Glucose 458(HH) 70 - 100 mg/dL [facility] Comment: CRITICAL VALUE CALLED and REPEATED. at:1537 12/02/18 by:Valeriy Hyman to: BRENT [id number] BUN 25 8 - 25 mg/dL [facility] Creatinine 0.9 0.5 - 1.1 mg/dL [facility] Comment: NOTE: Estimated GFR (Cockroft-Gault) will NOT be calculated unless patient Height and Weight were entered. Also, Kidney Disease Stage (GFR) and Estimated GFR (Cockroft-Gault) will NOT be calculated if Creatinine result is <0.2. Kidney Disease Stage 81 mL/MIN [facility] Comment: NOTE; ??The GFR is an estimated [...] on dialysis Est GFR (Cockcroft-G) 67 ml/MIN [facility] Comment: Estimated GFR(Cockroft-Gault)is used to calculate patient medication dosage Calcium 9.4 8.6 - 10.3 mg/dL [facility] Total Protein 8.0 6.4 - 8.3 g/dL [facility] Albumin 4.1 3.5 - 5.0 g/dL [facility] Globulin 3.9(H) 2.3 - 3.5 gm/dL [facility] Albumin/Globulin Ratio 1.1 1.1 - 1.8 [facility] Total Bilirubin 0.7 0.0 - 1.2 mg/dL [facility] AST 17 0 - 32 U/L [facility] ALT 12 0 - 33 U/L [facility] Alkaline Phosphatase 59 35 - 104 U/L [facility] 12/02/2018 3:06 PM CDT 12/02/2018 3:11 PM CDT Narrative Resulting Agency Comment ER us Brent Ruby DO LAB BLOOD ORDERABLES Edited Res ult - Final [facility] [address] [place] [address], [facility] [phone] * (ABNORMAL) CBC with auto differential (12/02/2018 3:06 PM CDT) WBC 5.7 3.8 - 9.9 X10 3/ul [facility] RBC 3.66(L) 3.90 - 5.20 x10 6/ul [facility] Hemoglobin 11.0(L) 11.9 - 15.5 g/dL [facility] Hct 32.7(L) 35.6 - 45.5 % [facility] MCV 89.3 81.3 - 96.4 fl [facility] MCH 30.1 27.1 - 33.3 pg [facility] MCHC 33.6 32.3 - 35.7 g/dl [facility] RDW 13.7 11.1 - 14.9 % [facility] Plt Count 261 150 - 400 x10 3/ul [facility] MPV 9.8 9.1 - 12.3 fl [facility] Neut % 72.0 % [facility] Immature Gran % 0.4 % [facility] Lymph % 20.5 % [facility] Brewster % 5.8 % [facility] Eos % 0.9 % [facility] AUTO BASO % 0.4 % [facility] NEUTROPHIL ABS # 4.1 1.7 - 6.5 x10 3/ul [facility] Immature Gran # 0.0 0.0 - 0.1 x10 3/ul [facility] Absolute Lymphs (auto) 1.2 0.8 - 3.3 x10 3/ul [facility] Absolute Monos (auto) 0.3 0.2 - 0.8 x10 3/ul [facility] Absolute Eos (auto) 0.1 0.0 - 0.5 x10 3/ul [facility] BASOPHIL ABS # 0.0 0.0 - 0.1 x10 3/ul [facility] Nucleat RBC Rel Count 0.0 #/100WBC [facility] NRBC abs 0.00 0.00 - 0.01 x10 3/ul [facility] Absolute Neutrophils 4,100 200 - 8,000 /ul [facility] 12/02/2018 3:06 PM CDT 12/02/2018 3:11 PM CDT Narrative Resulting Agency Comment ER us Alana Card CASEWORKER LAB BLOOD ORDERABLES Final Resu lt [facility] [address] [place] [address], [facility] [phone] documented in this encounter Visit Diagnoses Not on filedocumented in this encounter Care Teams Top Spotter Relationship Specialty Start Date End Date Zeke Puente MD [address] [place] [address] PCP - General 12/02/18 Damon Swanson DO [address] [place] [id number] Medical Oncologist/Speech Correction Assistant Hematology and Oncology 10/25/17 documented as of this encounter
--- OUTSIDE RECORDS SUMMARY | 2024-02-27 03:15 | XMS_ITS | Encounter Summary ---
Author Organization [facility] Healthcare Address [address] [place] [address] Care Team Providers Care Rn Cardiovascular Name Role Phone KikiDamon dale DO Unavailable Zeke Puente MD Primary Care Provider [phone] Sarah Baldwin MD, Karl Rosas. 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 12/03/2019 1:30 PM Posted [facility] OPERATING ROOM OR17w General Surgery Inpatient [...] on file Legal Sex Female 12:30 PM [employer]INT [employer]ER Gender Identity Not on file Sexual Orientation [...] 1 tablet (50 mcg total) by mouth section gang before 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 Procedure [id number] amputation on the right. Anesthesia General. Procedure [...] was 600 mL. Job ID/VF Job ID: [id number] documented in this encounter Plan of Treatment [...] AM CDT) eGFR 102 mL/min/1.7 3 m2 [facility] Comment: Interpretive Data Reference Interval Normal ?>/= 90 mL/min/1.73m2 Mildly decreased* ? 60 - 89 mL/min/1.73m2 Mildly to moderately decreased ?45 - 59 mL/min/1.73m2 Moderately to severely decreased ??30 - 44 mL/min/1.73m2 Severely decreased ?15 - 29 mL/min/1.73m2 Kidney Failure ?< 15 ??mL/min/1.73m2 *Relative to young adult level If -Kittitian multiply value by 1.16. Estimated glomerular filtration [...] MD LAB BLOOD ORDERABLES Final Re sult [facility] [address] Department [place] [address] * (ABNORMAL) Comprehensive metabolic panel (12/23/2019 5:41 AM CDT) [facility] Sodium 140 135 - 145 mmol/L [facility] Potassium, pl 3.6 3.3 - 4.9 mmol/L [facility] Chloride 96(L) 97 - 110 mmol/L [facility] CO2 33(H) 22 - 32 mmol/L [facility] Anion gap 11 2 - 15 mmol/L [facility] BUN 18 8 - 25 mg/dL [facility] Creatinine 0.51(L) 0.60 - 1.10 mg/dL [facility] Glucose 170 70 - 199 mg/dL [facility] Comment: Interpretive Data Fasting glucose >/= [...] 2017. Calcium 8.7 8.5 - 10.3 mg/dL [facility] Bilirubin, total 0.2 0.1 - 1.2 mg/dL [facility] Protein, pl 6.8 6.5 - 8.5 g/dL [facility] Albumin 3.2(L) 3.5 - 5.0 g/dL [facility] Alk phos 26(L) 40 - 130 Units/L [facility] ALT 11 7 - 45 Units/L [facility] AST 16 10 - 45 Units/L [facility] Blood specimen (specimen) 12/23/2019 5:41 AM CDT 12/23/2019 5:41 AM CDT Bennett Saleh MD LAB BLOOD ORDERABLES Final Re sult [facility] [address] Department [place] [address] * CRP (acute phase) (12/23/2019 5:41 AM CDT) CRP 8.4 <=10.0 mg/L [facility] Blood specimen (specimen) 12/23/2019 5:41 AM CDT 12/23/2019 5:41 AM CDT Bennett Saleh MD LAB BLOOD ORDERABLES Final Re sult Performing Organization Address City/[facility]/ZIP Co de Phone Number [facility] [address] [place] [address] * (ABNORMAL) CBC without differential (12/23/2019 3:47 AM CDT) WBC 5.1 3.8 - 9.9 K/cumm [facility] Hgb 9.4(L) 11.9 - 15.5 g/dL [facility] Hct 29.3(L) 35.6 - 45.5 % [facility] Plt 376 150 - 400 K/cumm [facility] MPV 9.2 9.1 - 12.3 fL [facility] RBC 3.08(L) 3.90 - 5.20 M/cumm [facility] MCV 95.1 81.3 - 96.4 fL [facility] MCH 30.5 27.1 - 33.3 pg [facility] MCHC 32.1(L) 32.3 - 35.7 g/dL [facility] RDW CV 17.0(H) 11.1 - 14.9 % [facility] RDW SD 59.7(H) 35.7 - 48.1 fL [facility] NRBC abs 0.00 0.00 - 0.01 K/cumm [facility] Blood specimen (specimen) 12/23/2019 3:47 AM CDT 12/23/2019 3:47 AM CDT Vaishali Clemente DO LAB BLOOD ORDERABLES Edited Result - Final [facility] [address] [employer] [place], [place] [id number] * (ABNORMAL) Erythrocyte sedimentation rate (12/23/2019 3:47 AM CDT) Erythrocyte sedimentation rate 117(H) 1 - 30 mm/hr [facility] Blood specimen (specimen) 12/23/2019 3:47 AM CDT 12/23/2019 3:47 AM CDT us Vaishali Clemente DO LAB BLOOD ORDERABLES Final Result Performing Organization Address [facility]/[place] Co de Phone Number [facility] [address] [facility] [employer] [place] [address] * (ABNORMAL) TSH (12/23/2019 3:40 AM CDT) Thyroid Stimulating Hormone 5.62(H) 0.30 - 4.20 mcIUnit/mL [facility] Blood specimen (specimen) 12/23/2019 3:40 AM CDT 12/23/2019 3:45 AM CDT us Bennett Saleh MD LAB BLOOD ORDERABLES Final Re sult Performing Organization Address [facility] de Phone Number [facility] [address] Department [employer] [place] [address] * eGFR (12/17/2019 4:13 AM CDT) eGFR 96 mL/min/1.7 3 m2 [facility] Comment: Interpretive Data Reference Interval Normal ?>/= 90 mL/min/1.73m2 Mildly decreased* ? 60 - 89 mL/min/1.73m2 Mildly to moderately decreased ?45 - 59 mL/min/1.73m2 Moderately to severely decreased ??30 - 44 mL/min/1.73m2 Severely decreased ?15 - 29 mL/min/1.73m2 Kidney Failure ?< 15 ??mL/min/1.73m2 *Relative to young adult level If -Kittitian multiply value by 1.16. Estimated glomerular filtration [...] MD LAB BLOOD ORDERABLES Final Re sult [facility] [address] Department [place] [address] * (ABNORMAL) Basic metabolic panel (12/17/2019 4:13 AM CDT) Sodium 138 135 - 145 mmol/L [facility] Potassium, pl 3.3 3.3 - 4.9 mmol/L [facility] Chloride 94(L) 97 - 110 mmol/L [facility] CO2 36(H) 22 - 32 mmol/L [facility] Anion gap 8 2 - 15 mmol/L [facility] BUN 19 8 - 25 mg/dL [facility] Creatinine 0.60 0.60 - 1.10 mg/dL [facility] Glucose 75 70 - 199 mg/dL [facility] Comment: Interpretive Data Fasting glucose >/= [...] 2017. Calcium 8.6 8.5 - 10.3 mg/dL [facility] Blood specimen (specimen) 12/17/2019 4:13 AM CDT 12/17/2019 4:13 AM CDT us Bennett Saleh MD LAB BLOOD ORDERABLES Final Re sult Performing Organization Address [facility]/ZIP Co de Phone Number [facility] [address] [place] [address] * eGFR (12/16/2019 5:27 AM CDT) eGFR 97 mL/min/1.7 3 m2 [facility] Comment: Interpretive Data Reference Interval Normal ?>/= 90 mL/min/1.73m2 Mildly decreased* ? 60 - 89 mL/min/1.73m2 Mildly to moderately decreased ?45 - 59 mL/min/1.73m2 Moderately to severely decreased ??30 - 44 mL/min/1.73m2 Severely decreased ?15 - 29 mL/min/1.73m2 Kidney Failure ?< 15 ??mL/min/1.73m2 *Relative to young adult level If -Kittitian multiply value by 1.16. Estimated glomerular filtration [...] ORDERABLES Final Result Performing Organization Address [facility]/[place] Co de Phone Number [facility] [address] [place] [place] [address] * (ABNORMAL) Comprehensive metabolic panel (12/16/2019 5:27 AM CDT) Sodium 139 135 - 145 mmol/L [facility] Potassium, pl 2.9(L) 3.3 - 4.9 mmol/L [facility] Chloride 93(L) 97 - 110 mmol/L [facility] CO2 37(H) 22 - 32 mmol/L [facility] Anion gap 9 2 - 15 mmol/L [facility] BUN 17 8 - 25 mg/dL [facility] Creatinine 0.59(L) 0.60 - 1.10 mg/dL [facility] Glucose 45(C) 70 - 199 mg/dL [facility] Comment: Critical result called to and read back by Rochelle Lao RN on 12/16/19 0608 to [id number] Interpretive Data Fasting glucose >/= 126 mg/dl [...] 2017. Calcium 8.5 8.5 - 10.3 mg/dL [facility] Bilirubin, total 0.2 0.1 - 1.2 mg/dL [facility] Protein, pl 7.0 6.5 - 8.5 g/dL [facility] Albumin 3.1(L) 3.5 - 5.0 g/dL [facility] Alk phos 24(L) 40 - 130 Units/L [facility] ALT 11 7 - 45 Units/L [facility] AST 24 10 - 45 Units/L [facility] Blood specimen (specimen) 12/16/2019 5:27 AM CDT 12/16/2019 5:27 AM CDT Vaishali Clemente DO LAB BLOOD ORDERABLES Final Result [facility] [address] Department of [employer] [place] [address] * CRP (acute phase) (12/16/2019 5:27 AM CDT) [facility] CRP 5.7 <=10.0 mg/L [facility] Blood specimen (specimen) 12/16/2019 5:27 AM CDT 12/16/2019 5:27 AM CDT Vaishali Clemente LAB BLOOD ORDERABLES Final Result Performing Organization Address [facility]/[place] Co de Phone Number [facility] [address] Department of [employer] [place] [address] * (ABNORMAL) CBC without differential (12/16/2019 5:26 AM CDT) [facility] WBC 5.4 3.8 - 9.9 K/cumm [facility] Hgb 9.2(L) 11.9 - 15.5 g/dL [facility] Hct 29.2(L) 35.6 - 45.5 % [facility] Plt 403(H) 150 - 400 K/cumm [facility] MPV 8.9(L) 9.1 - 12.3 fL [facility] RBC 3.08(L) 3.90 - 5.20 M/cumm [facility] MCV 94.8 81.3 - 96.4 fL [facility] MCH 29.9 27.1 - 33.3 pg [facility] MCHC 31.5(L) 32.3 - 35.7 g/dL [facility] RDW CV 17.9(H) 11.1 - 14.9 % [facility] RDW SD 62.2(H) 35.7 - 48.1 fL [facility] NRBC abs 0.00 0.00 - 0.01 K/cumm [facility] Blood specimen (specimen) 12/16/2019 5:26 AM CDT 12/16/2019 5:26 AM CDT Vaishali Clemente DO LAB BLOOD ORDERABLES Edited Result - Final [facility] [address] [place] [place] [address] * (ABNORMAL) Erythrocyte sedimentation rate (12/16/2019 5:26 AM CDT) Erythrocyte sedimentation rate 124(H) 1 - 30 mm/hr [facility] Blood specimen (specimen) 12/16/2019 5:26 AM CDT 12/16/2019 5:26 AM CDT Vaishali Clemente DO LAB BLOOD ORDERABLES Final Result Performing Organization Address [facility]/[place] Co de Phone Number [facility] [address] [place] [address] * eGFR (12/09/2019 5:07 AM CDT) eGFR 96 mL/min/1.7 3 m2 [facility] Comment: Interpretive Data Reference Interval Normal ?>/= 90 mL/min/1.73m2 Mildly decreased* ? 60 - 89 mL/min/1.73m2 Mildly to moderately decreased ?45 - 59 mL/min/1.73m2 Moderately to severely decreased ??30 - 44 mL/min/1.73m2 Severely decreased ?15 - 29 mL/min/1.73m2 Kidney Failure ?< 15 ??mL/min/1.73m2 *Relative to young adult level If -Kittitian multiply value by 1.16. Estimated glomerular filtration [...] ORDERABLES Final Result Performing Organization Address [facility]/ZIP Co de Phone Number [facility] [address] Department [place] [address] * (ABNORMAL) CBC without differential (12/09/2019 5:07 AM CDT) WBC 8.3 3.8 - 9.9 K/cumm [facility] Hgb 9.1(L) 11.9 - 15.5 g/dL [facility] Hct 28.1(L) 35.6 - 45.5 % [facility] Plt 340 150 - 400 K/cumm [facility] MPV 8.8(L) 9.1 - 12.3 fL [facility] RBC 3.01(L) 3.90 - 5.20 M/cumm [facility] MCV 93.4 81.3 - 96.4 fL [facility] MCH 30.2 27.1 - 33.3 pg [facility] MCHC 32.4 32.3 - 35.7 g/dL [facility] RDW CV 18.0(H) 11.1 - 14.9 % [facility] RDW SD 57.9(H) 35.7 - 48.1 fL [facility] NRBC abs 0.00 0.00 - 0.01 K/cumm [facility] Blood specimen (specimen) 12/09/2019 5:07 AM CDT 12/09/2019 5:07 AM CDT Vaishali Clemente DO LAB BLOOD ORDERABLES Edited Result - Final Performing Organization Address [facility]/ZIP Co de Phone Number [facility] [address] Department [place] [address] * (ABNORMAL) Comprehensive metabolic panel (12/09/2019 5:07 AM CDT) Sodium 136 135 - 145 mmol/L [facility] Potassium, pl 3.7 3.3 - 4.9 mmol/L [facility] Chloride 93(L) 97 - 110 mmol/L [facility] CO2 33(H) 22 - 32 mmol/L [facility] Anion gap 10 2 - 15 mmol/L [facility] BUN 34(H) 8 - 25 mg/dL [facility] Creatinine 0.60 0.60 - 1.10 mg/dL [facility] Glucose 76 70 - 199 mg/dL [facility] Comment: Interpretive Data Fasting glucose >/= [...] 2017. Calcium 9.0 8.5 - 10.3 mg/dL [facility] Bilirubin, total 0.2 0.1 - 1.2 mg/dL [facility] Protein, pl 7.3 6.5 - 8.5 g/dL [facility] Albumin 2.7(L) 3.5 - 5.0 g/dL [facility] Alk phos 36(L) 40 - 130 Units/L [facility] ALT 10 7 - 45 Units/L [facility] AST 21 10 - 45 Units/L [facility] Blood specimen (specimen) 12/09/2019 5:07 AM CDT 12/09/2019 5:07 AM CDT us Vaishali Clemente DO LAB BLOOD ORDERABLES Final Result [facility] [address] [facility] [employer] [place] [address] * (ABNORMAL) Erythrocyte sedimentation rate (12/09/2019 5:07 AM CDT) Erythrocyte sedimentation rate 123(H) 1 - 30 mm/hr [facility] Blood specimen (specimen) 12/09/2019 5:07 AM CDT 12/09/2019 5:07 AM CDT Vaishali Clemente DO LAB BLOOD ORDERABLES Final Result Performing Organization Address [facility]/[place] Co de Phone Number [facility] [address] [facility] [employer] [place] [address] * (ABNORMAL) CRP (acute phase) (12/09/2019 5:07 AM CDT) Pathologist [facility] CRP 22.7(H) <=10.0 mg/L [facility] Blood specimen (specimen) 12/09/2019 5:07 AM CDT 12/09/2019 5:07 AM CDT us Vaishali Clemente DO LAB BLOOD ORDERABLES Final Result Performing Organization Address [facility] de Phone Number [facility] [address] [facility] [employer] [place] [address] * eGFR (12/07/2019 3:30 AM CDT) eGFR 99 mL/min/1.7 3 m2 [facility] Comment: Interpretive Data Reference Interval Normal ?>/= 90 mL/min/1.73m2 Mildly decreased* ? 60 - 89 mL/min/1.73m2 Mildly to moderately decreased ?45 - 59 mL/min/1.73m2 Moderately to severely decreased ??30 - 44 mL/min/1.73m2 Severely decreased ?15 - 29 mL/min/1.73m2 Kidney Failure ?< 15 ??mL/min/1.73m2 *Relative to young adult level If -Kittitian multiply value by 1.16. Estimated glomerular filtration [...] AM CDT 12/07/2019 3:51 AM CDT Bennett Salhe MD LAB BLOOD ORDERABLES Final Re sult [facility] [address] Department [place] [address] * Differential, auto (12/07/2019 3:30 AM CDT) Neutrophil abs 6.2 1.7 - 6.5 K/cumm [facility] Imm gran abs 0.1 0.0 - 0.1 K/cumm [facility] Lymphocyte abs 1.6 0.8 - 3.3 K/cumm [facility] Monocyte abs 0.6 0.2 - 0.8 K/cumm [facility] Eosinophil abs 0.4 0.0 - 0.5 K/cumm [facility] Basophil abs 0.1 0.0 - 0.1 K/cumm [facility] Neutrophil pct 70.2 % [facility] Comment: Interpretive Data Percent cell count reference ranges are not reported, since discordance with absolute values may lead to misinterpretation of CBC data. Current Interpretive Data was last revised on 2017. Imm gran pct 0.6 % [facility] Comment: Interpretive Data Percent cell count reference ranges are not reported, since discordance with absolute values may lead to misinterpretation of CBC data. Current Interpretive Data was last revised on 2017. Lymphocyte pct 18.1 % [facility] Comment: Interpretive Data Percent cell count reference ranges are not reported, since discordance with absolute values may lead to misinterpretation of CBC data. Current Interpretive Data was last revised on 2017. Monocyte pct 6.4 % [facility] Comment: Interpretive Data Percent cell count reference ranges are not reported, since discordance with absolute values may lead to misinterpretation of CBC data. Current Interpretive Data was last revised on 2017. Eosinophil pct 4.0 % [facility] Comment: Interpretive Data Percent cell count reference ranges are not reported, since discordance with absolute values may lead to misinterpretation of CBC data. Current Interpretive Data was last revised on 2017. Basophil pct 0.7 % [facility] Comment: Interpretive Data Percent cell count reference ranges are not reported, since discordance with absolute values may lead to misinterpretation of CBC data. Current Interpretive Data was last revised on 2017. Blood specimen (specimen) 12/07/2019 3:30 AM CDT 12/07/2019 3:51 AM CDT Bennett Saleh MD LAB BLOOD ORDERABLES Final Re sult [facility] [address] Department [place] [address] * (ABNORMAL) Basic metabolic panel (12/07/2019 3:30 AM CDT) Sodium 131(L) 135 - 145 mmol/L [facility] Potassium, pl 4.8 3.3 - 4.9 mmol/L [facility] Chloride 91(L) 97 - 110 mmol/L [facility] CO2 29 22 - 32 mmol/L [facility] Anion gap 11 2 - 15 mmol/L [facility] BUN 29(H) 8 - 25 mg/dL [facility] Creatinine 0.56(L) 0.60 - 1.10 mg/dL [facility] Glucose 125 70 - 199 mg/dL [facility] Comment: Interpretive Data Fasting glucose >/= [...] 2017. Calcium 8.6 8.5 - 10.3 mg/dL [facility] Blood specimen (specimen) 12/07/2019 3:30 AM CDT 12/07/2019 3:51 AM CDT us Bennett Saleh MD LAB BLOOD ORDERABLES Final Re sult [facility] [address] Department [place] [address] * (ABNORMAL) CBC with auto differential (12/07/2019 3:30 AM CDT) WBC 8.9 3.8 - 9.9 K/cumm [facility] Hgb 8.7(L) 11.9 - 15.5 g/dL [facility] Hct 26.1(L) 35.6 - 45.5 % [facility] Plt 251 150 - 400 K/cumm [facility] MPV 9.4 9.1 - 12.3 fL [facility] RBC 2.84(L) 3.90 - 5.20 M/cumm [facility] MCV 91.9 81.3 - 96.4 fL [facility] MCH 30.6 27.1 - 33.3 pg [facility] MCHC 33.3 32.3 - 35.7 g/dL [facility] RDW CV 17.1(H) 11.1 - 14.9 % [facility] RDW SD 57.3(H) 35.7 - 48.1 fL [facility] NRBC abs 0.03(H) 0.00 - 0.01 K/cumm [facility] Blood specimen (specimen) 12/07/2019 3:30 AM CDT 12/07/2019 3:51 AM CDT Bennett Saleh MD LAB BLOOD ORDERABLES Final Re sult Performing Organization Address [facility]/[place] Co de Phone Number [facility] [address] [place] [address] * (ABNORMAL) Glucose, random (12/06/2019 11:36 PM CDT) Glucose 65(L) 70 - 199 mg/dL [facility] Comment: Interpretive Data Fasting glucose >/= [...] PM CDT 12/06/2019 11:36 PM CDT Narrative [facility] - 12/07/2019 12:02 AM CDT Per hypoglycemia protocol Bennett Saleh MD LAB BLOOD ORDERABLES Final Re sult Performing Organization Address [facility]/ZIP Co de Phone Number [facility] [address] Department of [employer] [place], [place] [id number] * Type and screen (12/06/2019 11:41 AM CDT) Veronica, indirect Negative [facility] ABO Rh O Positive [facility] Blood specimen (specimen) 12/06/2019 11:41 AM CDT 12/06/2019 12:09 PM CDT Narrative [facility] - 12/06/2019 12:48 PM CDT Has the patient had Daratumumab or Isatuximab in the past 6 months?->Unknown Bennett Saleh MD LAB BLOOD BANK TEST ORDERABLE S Final Result Performing Organization Address [facility] de Phone Number [facility] [address] [facility] [employer] [place], [place] [id number] * Prepare RBC: 1 Units (12/06/2019 10:16 AM CDT) [facility] Product code [id number] [facility] Unit Number [id number] [facility] Product Blood Type OPOS [facility] Dispense Status PRESUMED TRANSFUSED [facility] Blood specimen (specimen) 12/06/2019 10:[address] [facility] - 12/07/2019 10:15 AM CDT Are special requirements needed? (all products are leukoreduced)->No Date required:-20191206 LRRBC # of [id number] Reasons:-Hgb <7 g/dL} Bennett Saleh MD BLOOD BANK PRODUCT ORDERABLES Final Result Performing Organization Address [facility] de Phone Number [facility] [address] [facility] [employer] [place] [address] * eGFR (12/06/2019 4:32 AM CDT) [facility] eGFR 94 mL/min/1.7 3 m2 [facility] Comment: Interpretive Data Reference Interval Normal ?>/= 90 mL/min/1.73m2 Mildly decreased* ? 60 - 89 mL/min/1.73m2 Mildly to moderately decreased ?45 - 59 mL/min/1.73m2 Moderately to severely decreased ??30 - 44 mL/min/1.73m2 Severely decreased ?15 - 29 mL/min/1.73m2 Kidney Failure ?< 15 ??mL/min/1.73m2 *Relative to young adult level If -Kittitian multiply value by 1.16. Estimated glomerular filtration [...] MD LAB BLOOD ORDERABLES Final Re sult [facility] [address] Department [place] [address] * Differential, auto (12/06/2019 4:32 AM CDT) Neutrophil abs 5.8 1.7 - 6.5 K/cumm [facility] Imm gran abs 0.1 0.0 - 0.1 K/cumm [facility] Lymphocyte abs 2.0 0.8 - 3.3 K/cumm [facility] Monocyte abs 0.8 0.2 - 0.8 K/cumm [facility] Eosinophil abs 0.3 0.0 - 0.5 K/cumm [facility] Basophil abs 0.1 0.0 - 0.1 K/cumm [facility] Neutrophil pct 64.2 % [facility] Comment: Interpretive Data Percent cell count reference ranges are not reported, since discordance with absolute values may lead to misinterpretation of CBC data. Current Interpretive Data was last revised on 2017. Imm gran pct 0.6 % [facility] Comment: Interpretive Data Percent cell count reference ranges are not reported, since discordance with absolute values may lead to misinterpretation of CBC data. Current Interpretive Data was last revised on 2017. Lymphocyte pct 21.9 % [facility] Comment: Interpretive Data Percent cell count reference ranges are not reported, since discordance with absolute values may lead to misinterpretation of CBC data. Current Interpretive Data was last revised on 2017. Monocyte pct 8.9 % [facility] Comment: Interpretive Data Percent cell count reference ranges are not reported, since discordance with absolute values may lead to misinterpretation of CBC data. Current Interpretive Data was last revised on 2017. Eosinophil pct 3.8 % [facility] Comment: Interpretive Data Percent cell count reference ranges are not reported, since discordance with absolute values may lead to misinterpretation of CBC data. Current Interpretive Data was last revised on 2017. Basophil pct 0.6 % [facility] Comment: Interpretive Data Percent cell count reference ranges are not reported, since discordance with absolute values may lead to misinterpretation of CBC data. Current Interpretive Data was last revised on 2017. Blood specimen (specimen) 12/06/2019 4:32 AM CDT 12/06/2019 4:32 AM CDT Bennett Saleh MD LAB BLOOD ORDERABLES Final Re sult [facility] [address] Department [place] [address] * (ABNORMAL) CBC with auto differential (12/06/2019 4:32 AM CDT) WBC 9.0 3.8 - 9.9 K/cumm [facility] Hgb 6.6(L) 11.9 - 15.5 g/dL [facility] Hct 20.8(L) 35.6 - 45.5 % [facility] Plt 294 150 - 400 K/cumm [facility] MPV 9.0(L) 9.1 - 12.3 fL [facility] RBC 2.24(L) 3.90 - 5.20 M/cumm [facility] MCV 92.9 81.3 - 96.4 fL [facility] MCH 29.5 27.1 - 33.3 pg [facility] MCHC 31.7(L) 32.3 - 35.7 g/dL [facility] RDW CV 18.0(H) 11.1 - 14.9 % [facility] RDW SD 61.8(H) 35.7 - 48.1 fL [facility] NRBC abs 0.00 0.00 - 0.01 K/cumm [facility] Blood specimen (specimen) 12/06/2019 4:32 AM CDT 12/06/2019 4:32 AM CDT us Bennett Saleh MD LAB BLOOD ORDERABLES Final Re sult [facility] [address] Department [place] [address] * (ABNORMAL) Basic metabolic panel (12/06/2019 4:32 AM CDT) Sodium 136 135 - 145 mmol/L [facility] Potassium, pl 4.0 3.3 - 4.9 mmol/L [facility] Chloride 92(L) 97 - 110 mmol/L [facility] CO2 34(H) 22 - 32 mmol/L [facility] Anion gap 10 2 - 15 mmol/L [facility] BUN 36(H) 8 - 25 mg/dL [facility] Creatinine 0.64 0.60 - 1.10 mg/dL [facility] Glucose 61(L) 70 - 199 mg/dL [facility] Comment: Interpretive Data Fasting glucose >/= [...] 2017. Calcium 9.0 8.5 - 10.3 mg/dL [facility] Blood specimen (specimen) 12/06/2019 4:32 AM CDT 12/06/2019 4:32 AM CDT Bennett Saleh MD LAB BLOOD ORDERABLES Final Re sult [facility] [address] Department [place] [address] * eGFR (12/05/2019 4:04 AM CDT) eGFR 92 mL/min/1.7 3 m2 [facility] Comment: Interpretive Data Reference Interval Normal ?>/= 90 mL/min/1.73m2 Mildly decreased* ? 60 - 89 mL/min/1.73m2 Mildly to moderately decreased ?45 - 59 mL/min/1.73m2 Moderately to severely decreased ??30 - 44 mL/min/1.73m2 Severely decreased ?15 - 29 mL/min/1.73m2 Kidney Failure ?< 15 ??mL/min/1.73m2 *Relative to young adult level If -Kittitian multiply value by 1.16. Estimated glomerular filtration [...] MD LAB BLOOD ORDERABLES Final Re sult [facility] [address] Department [place] [address] * (ABNORMAL) Differential, auto (12/05/2019 4:04 AM CDT) Neutrophil abs 7.3(H) 1.7 - 6.5 K/cumm [facility] Imm gran abs 0.1 0.0 - 0.1 K/cumm [facility] Lymphocyte abs 1.8 0.8 - 3.3 K/cumm [facility] Monocyte abs 0.9(H) 0.2 - 0.8 K/cumm [facility] Eosinophil abs 0.1 0.0 - 0.5 K/cumm [facility] Basophil abs 0.1 0.0 - 0.1 K/cumm [facility] Neutrophil pct 71.8 % [facility] Comment: Interpretive Data Percent cell count reference ranges are not reported, since discordance with absolute values may lead to misinterpretation of CBC data. Current Interpretive Data was last revised on 2017. Imm gran pct 0.5 % [facility] Comment: Interpretive Data Percent cell count reference ranges are not reported, since discordance with absolute values may lead to misinterpretation of CBC data. Current Interpretive Data was last revised on 2017. Lymphocyte pct 17.1 % [facility] Comment: Interpretive Data Percent cell count reference ranges are not reported, since discordance with absolute values may lead to misinterpretation of CBC data. Current Interpretive Data was last revised on 2017. Monocyte pct 8.7 % [facility] Comment: Interpretive Data Percent cell count reference ranges are not reported, since discordance with absolute values may lead to misinterpretation of CBC data. Current Interpretive Data was last revised on 2017. Eosinophil pct 1.3 % [facility] Comment: Interpretive Data Percent cell count reference ranges are not reported, since discordance with absolute values may lead to misinterpretation of CBC data. Current Interpretive Data was last revised on 2017. Basophil pct 0.6 % [facility] Comment: Interpretive Data Percent cell count reference ranges are not reported, since discordance with absolute values may lead to misinterpretation of CBC data. Current Interpretive Data was last revised on 2017. Blood specimen (specimen) 12/05/2019 4:04 AM CDT 12/05/2019 4:04 AM CDT Bennett Saleh MD LAB BLOOD ORDERABLES Final Re sult [facility] [address] Department [place] [address] * (ABNORMAL) Basic metabolic panel (12/05/2019 4:04 AM CDT) Sodium 128(L) 135 - 145 mmol/L [facility] Potassium, pl 3.9 3.3 - 4.9 mmol/L [facility] Chloride 87(L) 97 - 110 mmol/L [facility] CO2 31 22 - 32 mmol/L [facility] Anion gap 10 2 - 15 mmol/L [facility] BUN 41(H) 8 - 25 mg/dL [facility] Creatinine 0.69 0.60 - 1.10 mg/dL [facility] Glucose 86 70 - 199 mg/dL [facility] Comment: Interpretive Data Fasting glucose >/= [...] 2017. Calcium 8.9 8.5 - 10.3 mg/dL [facility] Blood specimen (specimen) 12/05/2019 4:04 AM CDT 12/05/2019 4:04 AM CDT Bennett Saleh MD LAB BLOOD ORDERABLES Final Re sult Performing Organization Address [facility]/ZIP Co de Phone Number [facility] [address] Department [place] [address] * (ABNORMAL) CBC with auto differential (12/05/2019 4:04 AM CDT) WBC 10.2(H) 3.8 - 9.9 K/cumm [facility] Hgb 7.0(L) 11.9 - 15.5 g/dL [facility] Hct 21.8(L) 35.6 - 45.5 % [facility] Plt 325 150 - 400 K/cumm [facility] MPV 9.2 9.1 - 12.3 fL [facility] RBC 2.36(L) 3.90 - 5.20 M/cumm [facility] MCV 92.4 81.3 - 96.4 fL [facility] MCH 29.7 27.1 - 33.3 pg [facility] MCHC 32.1(L) 32.3 - 35.7 g/dL [facility] RDW CV 18.1(H) 11.1 - 14.9 % [facility] RDW SD 60.3(H) 35.7 - 48.1 fL [facility] NRBC abs 0.00 0.00 - 0.01 K/cumm [facility] Blood specimen (specimen) 12/05/2019 4:04 AM CDT 12/05/2019 4:04 AM CDT Bennett Saleh MD LAB BLOOD ORDERABLES Final Re sult [facility] [address] Department [place] [address] * Surgical pathology (12/03/2019 3:53 PM CDT) Tissue (Amputation non-tramatic) 12/03/2019 3:16 PM CDT Comment:No preservative Narrative PATHOLOGY [facility] - 12/16/2019 10:07 PM CDT [place] [id number] [place], [place] ??[address] Tele: ?? Marti Mueller MD - Marketing Strategy [employer] pairer PATHOLOGY REPORT Patient Name: ??IRIS PASCUAL Address: ??[address], [place] [address] Gender: ??F : ??1955 (Age: 64) Service: ??LTC Location: ??572, ?? Hospital #: ??[id number] Patient Type: ??MB OP in a Bed Accession #: ? [id number] Taken: ? 12/03/2019 Received ? 12/05/2019 Reported: ? 12/16/2019 Physician(s): ? Dr. Arley Peña M.D. Zeke Puente MD DIAGNOSIS: Extremity, lower, right leg, [id number] amputation: ? -Acute osteomyelitis -Skin, with acute [...] anterior artery is stenosed by yellow plaque. ??Mysql Database Developer sections are submitted as follows: ??A1 - bone marrow from bony margin of resection; A2 - skin and soft tissue from resection surface; A3 - skin from heel of foot; A4 ??bone deep to the necrotic skin; A5 - popliteal, posterior and anterior vessels. ??Cassettes A4 and A5 are submitted for decalcification. [facility]/12/06/2019 17:28 ? [facility] MICROSCOPIC DESCRIPTION: Microscopic examination supports the above captioned diagnosis. ??Sections of bone marrow scrapings from bony margin appear viable. Clerical Data Follows A; [id number], [id number] REPORT IMAGES AND/OR SCANNED DOCUMENTS ONLY VIEWABLE IN PDF FORMAT The immunohistochemical test(s) cited in this report, if any, was developed and its performance characteristics determined by [facility] Pathology Department. ??It has not been cleared or approved by the U.S. Food and Drug Administration. ??The FDA has determined that such clearance or approval is not necessary. ??This test is used for clinical purposes. ??It should not be regarded as investigational or for research. ??[facility] Laboratory is certified under the Clinical Laboratory [...] MD LAB PATHOLOGY ORDERABLES Final Result PATHOLOGY [facility] Laboratory Receiving [address] [place], [place] [id number] * Prepare RBC: 1 Units (12/03/2019 3:17 PM CDT) Product code [id number] [facility] Unit Number [id number] 3-T [facility] Product Blood Type OPOS [facility] Dispense Status RETURNED [facility] Blood specimen (specimen) 12/03/2019 3:17 PM CDT Narrative [facility] - 12/05/2019 7:28 AM CDT Are special requirements needed? (all products are leukoreduced)->No Date required:-[id number] LRRBC # of [id number] Reasons:-Intra-op transfusion} us Amanda Jefferson MD BLOOD BANK PRODUCT ORDERABLE S Final Result Performing Organization Address [facility]/ZIP Co de Phone Number [facility] [address] [place] [address] * Check Sample (12/03/2019 5:41 AM CDT) ABO Rh O Positive [facility] HCLL OTHER 12/03/2019 5:41 AM CDT 12/03/2019 7:18 AM CDT us Bennett Saleh MD LAB BLOOD ORDERABLES Final Re sult Performing Organization Address [facility]/[place] Co de Phone Number [facility] [address] [place] [address] * eGFR (12/03/2019 5:41 AM CDT) eGFR 93 mL/min/1.7 3 m2 [facility] Comment: Interpretive Data Reference Interval Normal ?>/= 90 mL/min/1.73m2 Mildly decreased* ? 60 - 89 mL/min/1.73m2 Mildly to moderately decreased ?45 - 59 mL/min/1.73m2 Moderately to severely decreased ??30 - 44 mL/min/1.73m2 Severely decreased ?15 - 29 mL/min/1.73m2 Kidney Failure ?< 15 ??mL/min/1.73m2 *Relative to young adult level If -Kittitian multiply value by 1.16. Estimated glomerular filtration [...] MD LAB BLOOD ORDERABLES Final Re sult [facility] [address] Department [place] [address] * Differential, auto (12/03/2019 5:41 AM CDT) Neutrophil abs 5.8 1.7 - 6.5 K/cumm [facility] Imm gran abs 0.0 0.0 - 0.1 K/cumm [facility] Lymphocyte abs 1.4 0.8 - 3.3 K/cumm [facility] Monocyte abs 0.6 0.2 - 0.8 K/cumm [facility] Eosinophil abs 0.2 0.0 - 0.5 K/cumm [facility] Basophil abs 0.1 0.0 - 0.1 K/cumm [facility] Neutrophil pct 71.2 % [facility] Comment: Interpretive Data Percent cell count reference ranges are not reported, since discordance with absolute values may lead to misinterpretation of CBC data. Current Interpretive Data was last revised on 2017. Imm gran pct 0.2 % [facility] Comment: Interpretive Data Percent cell count reference ranges are not reported, since discordance with absolute values may lead to misinterpretation of CBC data. Current Interpretive Data was last revised on 2017. Lymphocyte pct 17.2 % [facility] Comment: Interpretive Data Percent cell count reference ranges are not reported, since discordance with absolute values may lead to misinterpretation of CBC data. Current Interpretive Data was last revised on 2017. Monocyte pct 7.7 % [facility] Comment: Interpretive Data Percent cell count reference ranges are not reported, since discordance with absolute values may lead to misinterpretation of CBC data. Current Interpretive Data was last revised on 2017. Eosinophil pct 2.7 % [facility] Comment: Interpretive Data Percent cell count reference ranges are not reported, since discordance with absolute values may lead to misinterpretation of CBC data. Current Interpretive Data was last revised on 2017. Basophil pct 1.0 % [facility] Comment: Interpretive Data Percent cell count reference ranges are not reported, since discordance with absolute values may lead to misinterpretation of CBC data. Current Interpretive Data was last revised on 2017. Blood specimen (specimen) 12/03/2019 5:41 AM CDT 12/03/2019 5:41 AM CDT Bennett Saleh MD LAB BLOOD ORDERABLES Final Re sult [facility] [address] Department of Laboratories [place], [place] [id number] * 25-Hydroxyvitamin D2 and D3, serum (12/03/2019 5:41 AM CDT) 25-OH Vit D, D2 fraction <4.0 ng/mL [facility] 25-OH Vit D, D3 fraction 33 ng/mL [facility] 25-OH Vit D 33 ng/mL [facility] Comment: REFERENCE VALUE 25-HYDROXY D TOTAL (D2+D3) Optimum levels in the healthy population are 20-50, patients with bone disease may benefit from higher levels within this range. ADDITIONAL INFORMATION This test was developed and its performance characteristics determined by [facility] in a manner consistent with CLIA requirements. This test has not been cleared or approved by the U.S. Food and Drug Administration. Test Performed by: [facility] Laboratories - [facility] [address] [place] [address] Bag Valver: Abhijit Berg M.D. Ph.D.; CLIA# [id number] Blood specimen (specimen) 12/03/2019 5:41 AM CDT 12/03/2019 5:41 AM CDT us Bennett Saleh MD LAB BLOOD ORDERABLES Final Re sult [facility] [address] Department [place] [address] * (ABNORMAL) Comprehensive metabolic panel (12/03/2019 5:41 AM CDT) Sodium 139 135 - 145 mmol/L [facility] Potassium, pl 3.7 3.3 - 4.9 mmol/L [facility] Chloride 94(L) 97 - 110 mmol/L [facility] CO2 33(H) 22 - 32 mmol/L [facility] Anion gap 12 2 - 15 mmol/L [facility] BUN 21 8 - 25 mg/dL [facility] Creatinine 0.67 0.60 - 1.10 mg/dL [facility] Glucose 75 70 - 199 mg/dL [facility] Comment: Interpretive Data Fasting glucose >/= [...] 2017. Calcium 9.3 8.5 - 10.3 mg/dL [facility] Bilirubin, total 0.2 0.1 - 1.2 mg/dL [facility] Protein, pl 8.1 6.5 - 8.5 g/dL [facility] Albumin 3.0(L) 3.5 - 5.0 g/dL [facility] Alk phos 31(L) 40 - 130 Units/L [facility] ALT 12 7 - 45 Units/L [facility] AST 23 10 - 45 Units/L [facility] Blood specimen (specimen) 12/03/2019 5:41 AM CDT 12/03/2019 5:41 AM CDT us Bennett Saleh MD LAB BLOOD ORDERABLES Final Re sult [facility] [address] Department of Laboratories [place], [place] [id number] * (ABNORMAL) CBC with auto differential (12/03/2019 5:41 AM CDT) WBC 8.2 3.8 - 9.9 K/cumm [facility] Hgb 9.3(L) 11.9 - 15.5 g/dL [facility] Hct 29.0(L) 35.6 - 45.5 % [facility] Plt 408(H) 150 - 400 K/cumm [facility] MPV 9.1 9.1 - 12.3 fL [facility] RBC 3.17(L) 3.90 - 5.20 M/cumm [facility] MCV 91.5 81.3 - 96.4 fL [facility] MCH 29.3 27.1 - 33.3 pg [facility] MCHC 32.1(L) 32.3 - 35.7 g/dL [facility] RDW CV 17.9(H) 11.1 - 14.9 % [facility] RDW SD 60.4(H) 35.7 - 48.1 fL [facility] NRBC abs 0.00 0.00 - 0.01 K/cumm [facility] Blood specimen (specimen) 12/03/2019 5:41 AM CDT 12/03/2019 5:41 AM CDT us Bennett Saleh MD LAB BLOOD ORDERABLES Final Re sult Performing Organization Address [facility]/[place] Co de Phone Number [facility] [address] [place] [place] [address] * eGFR (12/02/2019 7:19 AM CDT) [facility] eGFR 102 mL/min/1.7 3 m2 [facility] Comment: Interpretive Data Reference Interval Normal ?>/= 90 mL/min/1.73m2 Mildly decreased* ? 60 - 89 mL/min/1.73m2 Mildly to moderately decreased ?45 - 59 mL/min/1.73m2 Moderately to severely decreased ??30 - 44 mL/min/1.73m2 Severely decreased ?15 - 29 mL/min/1.73m2 Kidney Failure ?< 15 ??mL/min/1.73m2 *Relative to young adult level If -Kittitian multiply value by 1.16. Estimated glomerular filtration [...] ORDERABLES Final Re sult Performing Organization Address [facility]/[place] Co de Phone Number [facility] [address] Department [employer] [place], [place] [id number] * (ABNORMAL) Comprehensive metabolic panel (12/02/2019 7:19 AM CDT) Sodium 140 135 - 145 mmol/L [facility] Potassium, pl 3.6 3.3 - 4.9 mmol/L [facility] Chloride 95(L) 97 - 110 mmol/L [facility] CO2 32 22 - 32 mmol/L [facility] Anion gap 13 2 - 15 mmol/L [facility] BUN 27(H) 8 - 25 mg/dL [facility] Creatinine 0.50(L) 0.60 - 1.10 mg/dL [facility] Glucose 120 70 - 199 mg/dL [facility] Comment: Interpretive Data Fasting glucose >/= [...] 2017. Calcium 9.1 8.5 - 10.3 mg/dL [facility] Bilirubin, total 0.2 0.1 - 1.2 mg/dL [facility] Protein, pl 7.7 6.5 - 8.5 g/dL [facility] Albumin 3.2(L) 3.5 - 5.0 g/dL [facility] Alk phos 32(L) 40 - 130 Units/L [facility] ALT 13 7 - 45 Units/L [facility] AST 20 10 - 45 Units/L [facility] Blood specimen (specimen) 12/02/2019 7:19 AM CDT 12/02/2019 7:19 AM CDT us Bennett Saleh MD LAB BLOOD ORDERABLES Final Re sult [facility] [address] Department [place] [address] * (ABNORMAL) CRP (acute phase) (12/02/2019 7:19 AM CDT) Pathologist [facility] CRP 15.3(H) <=10.0 mg/L [facility] Blood specimen (specimen) 12/02/2019 7:19 AM CDT 12/02/2019 7:19 AM CDT Vaishali Clemente DO LAB BLOOD ORDERABLES Final Result [facility] [address] Department [place] [address] * Differential, auto (12/02/2019 7:11 AM CDT) Pathologist [facility] Neutrophil abs 4.2 1.7 - 6.5 K/cumm [facility] Imm gran abs 0.0 0.0 - 0.1 K/cumm [facility] Lymphocyte abs 1.5 0.8 - 3.3 K/cumm [facility] Monocyte abs 0.6 0.2 - 0.8 K/cumm [facility] Eosinophil abs 0.2 0.0 - 0.5 K/cumm [facility] Basophil abs 0.1 0.0 - 0.1 K/cumm [facility] Neutrophil pct 64.2 % [facility] Comment: Interpretive Data Percent cell count reference ranges are not reported, since discordance with absolute values may lead to misinterpretation of CBC data. Current Interpretive Data was last revised on 2017. Imm gran pct 0.2 % [facility] Comment: Interpretive Data Percent cell count reference ranges are not reported, since discordance with absolute values may lead to misinterpretation of CBC data. Current Interpretive Data was last revised on 2017. Lymphocyte pct 22.9 % [facility] Comment: Interpretive Data Percent cell count reference ranges are not reported, since discordance with absolute values may lead to misinterpretation of CBC data. Current Interpretive Data was last revised on 2017. Monocyte pct 8.4 % [facility] Comment: Interpretive Data Percent cell count reference ranges are not reported, since discordance with absolute values may lead to misinterpretation of CBC data. Current Interpretive Data was last revised on 2017. Eosinophil pct 2.9 % [facility] Comment: Interpretive Data Percent cell count reference ranges are not reported, since discordance with absolute values may lead to misinterpretation of CBC data. Current Interpretive Data was last revised on 2017. Basophil pct 1.4 % [facility] Comment: Interpretive Data Percent cell count reference ranges are not reported, since discordance with absolute values may lead to misinterpretation of CBC data. Current Interpretive Data was last revised on 2017. Blood specimen (specimen) 12/02/2019 7:11 AM CDT 12/02/2019 7:11 AM CDT Bennett Saleh MD LAB BLOOD ORDERABLES Final Re sult [facility] [address] Department [place] [address] * (ABNORMAL) CBC with auto differential (12/02/2019 7:11 AM CDT) WBC 6.5 3.8 - 9.9 K/cumm [facility] Hgb 9.5(L) 11.9 - 15.5 g/dL [facility] Hct 30.9(L) 35.6 - 45.5 % [facility] Plt 404(H) 150 - 400 K/cumm [facility] MPV 9.5 9.1 - 12.3 fL [facility] RBC 3.24(L) 3.90 - 5.20 M/cumm [facility] MCV 95.4 81.3 - 96.4 fL [facility] MCH 29.3 27.1 - 33.3 pg [facility] MCHC 30.7(L) 32.3 - 35.7 g/dL [facility] RDW CV 18.0(H) 11.1 - 14.9 % [facility] RDW SD 62.8(H) 35.7 - 48.1 fL [facility] NRBC abs 0.00 0.00 - 0.01 K/cumm [facility] Blood specimen (specimen) 12/02/2019 7:11 AM CDT 12/02/2019 7:11 AM CDT us Bennett Saleh MD LAB BLOOD ORDERABLES Final Re sult Performing Organization Address [facility]/ZIP Co de Phone Number [facility] [address] Department of [employer] [place] [address] * (ABNORMAL) Erythrocyte sedimentation rate (12/02/2019 7:11 AM CDT) Pathologist [facility] Erythrocyte sedimentation rate 129(H) 1 - 30 mm/hr [facility] Blood specimen (specimen) 12/02/2019 7:11 AM CDT 12/02/2019 7:11 AM CDT Vaishali Clemente DO LAB BLOOD ORDERABLES Final Result Performing Organization Address [facility]/[place] Co de Phone Number [facility] [address] Department of [employer] [place] [address] * Type and screen (12/01/2019 6:34 PM CDT) Pathologist [facility] Veronica, indirect Negative [facility] ABO Rh O Positive [facility] Blood specimen (specimen) 12/01/2019 6:34 PM CDT 12/01/2019 6:35 PM CDT Narrative [facility] - 12/01/2019 7:12 PM CDT Has the patient had Daratumumab or Isatuximab in the past 6 months?->Unknown us Arley Peña MD LAB BLOOD BANK TEST ORDERABLES Final Result Performing Organization Address [facility]/ZIP Co de Phone Number [facility] [address] Department [employer] [place] [address] * (ABNORMAL) COVID-19 Coronavirus RNA Nasopharyngeal (11/30/2019 3:18 AM CDT) Pathologist [facility] COVID-19 RNA Detected( A) [facility] Comment: Interpretive Data Testing performed at [facility] Molecular Infectious Disease Laboratory. The 2019-Novel Coronavirus [...] last revised on 2019. Testing performed by: [facility], [address] [place]., [address] Nasopharyngeal 11/30/2019 3: 18 AM CDT 11/30/2019 8:02 AM CDT Narrative [facility] - 11/30/2019 5:16 PM CDT Is the patient experiencing any symptoms consistent with COVID (eg. Fever, cough, shortness of breath)?->No What is the reason for testing?->Screening prior to scheduled (>12 hr) surgery or procedure Arley Peña MD LAB MICROBIOLOGY - GENERAL LORMANMark [facility] Final Result [facility] [address] Department [place] [address] * COVID-19 Coronavirus RNA Nasopharyngeal (11/28/2019 4:00 PM CDT) COVID-19 RNA Not Detected [facility] Comment: Interpretive Data Testing performed at [facility] Molecular Infectious Disease Laboratory. The 2018-Novel Coronavirus [...] last revised on 2019. Testing performed by: [facility], [address] [place] [address], [place]., [address] Nasopharyngeal 11/28/2019 4: 00 PM CDT 11/28/2019 7:42 PM CDT Narrative [facility] - 11/29/2019 2:22 AM CDT Needs negative test to remove from isolation Is the patient experiencing any symptoms consistent with COVID (eg. Fever, cough, shortness of breath)?->No What is the reason for testing?->Discharge planning/removal of isolation Bennett Saleh MD LAB MICROBIOLOGY - GENERAL OR DERABLES Final Result Performing Organization Address [facility]/[place] Co de Phone Number [facility] [address] Department [place] [address] * (ABNORMAL) Blood gas, arterial (11/26/2019 11:15 AM CDT) pH, Art 7.42 7.35 - 7.45 [facility] PCO2, Arterial 44 35 - 45 mmHg [facility] PO2, Arterial 74(L) 83 - 108 mmHg [facility] HCO3 Art (Calculated) 28 20 - 30 mmol/L [facility] BE, art 3 mmol/L [facility] Comment: Interpretive Data No Reference Range Established Current Interpretive Data was last revised on 2017 O2 Sat Art (Calculated) 95 94 - 98 % [facility] Blood specimen (specimen) 11/26/2019 11:15 AM CDT 11/26/2019 11:22 AM CDT Bennett Saleh MD LAB BLOOD ORDERABLES Final Re sult Performing Organization Address [facility]/[place] Co de Phone Number [facility] [address] Department [place] [address] * eGFR (11/25/2019 4:49 AM CDT) eGFR 93 mL/min/1.7 3 m2 [facility] Comment: Interpretive Data Reference Interval Normal ?>/= 90 mL/min/1.73m2 Mildly decreased* ? 60 - 89 mL/min/1.73m2 Mildly to moderately decreased ?45 - 59 mL/min/1.73m2 Moderately to severely decreased ??30 - 44 mL/min/1.73m2 Severely decreased ?15 - 29 mL/min/1.73m2 Kidney Failure ?< 15 ??mL/min/1.73m2 *Relative to young adult level If -Kittitian multiply value by 1.16. Estimated glomerular filtration [...] Clemente DO LAB BLOOD ORDERABLES Final Result [facility] [address] Department [place] [address] * Differential, auto (11/25/2019 4:49 AM CDT) Neutrophil abs 5.9 1.7 - 6.5 K/cumm [facility] Imm gran abs 0.0 0.0 - 0.1 K/cumm [facility] Lymphocyte abs 1.7 0.8 - 3.3 K/cumm [facility] Monocyte abs 0.5 0.2 - 0.8 K/cumm [facility] Eosinophil abs 0.2 0.0 - 0.5 K/cumm [facility] Basophil abs 0.1 0.0 - 0.1 K/cumm [facility] Neutrophil pct 70.1 % [facility] Comment: Interpretive Data Percent cell count reference ranges are not reported, since discordance with absolute values may lead to misinterpretation of CBC data. Current Interpretive Data was last revised on 2017. Imm gran pct 0.2 % [facility] Comment: Interpretive Data Percent cell count reference ranges are not reported, since discordance with absolute values may lead to misinterpretation of CBC data. Current Interpretive Data was last revised on 2017. Lymphocyte pct 20.4 % [facility] Comment: Interpretive Data Percent cell count reference ranges are not reported, since discordance with absolute values may lead to misinterpretation of CBC data. Current Interpretive Data was last revised on 2017. Monocyte pct 6.4 % [facility] Comment: Interpretive Data Percent cell count reference ranges are not reported, since discordance with absolute values may lead to misinterpretation of CBC data. Current Interpretive Data was last revised on 2017. Eosinophil pct 1.8 % [facility] Comment: Interpretive Data Percent cell count reference ranges are not reported, since discordance with absolute values may lead to misinterpretation of CBC data. Current Interpretive Data was last revised on 2017. Basophil pct 1.1 % [facility] Comment: Interpretive Data Percent cell count reference ranges are not reported, since discordance with absolute values may lead to misinterpretation of CBC data. Current Interpretive Data was last revised on 2017. Blood specimen (specimen) 11/25/2019 4:49 AM CDT 11/25/2019 4:49 AM CDT Vaishali Clemente DO LAB BLOOD ORDERABLES Final Result [facility] [address] Department [place] [address] * (ABNORMAL) Erythrocyte sedimentation rate (11/25/2019 4:49 AM CDT) Erythrocyte sedimentation rate 101(H) 1 - 30 mm/hr [facility] Blood specimen (specimen) 11/25/2019 4:49 AM CDT 11/25/2019 4:49 AM CDT us Vaishali Clemente DO LAB BLOOD ORDERABLES Final Result Performing Organization Address City/[facility]/ZIP Co de Phone Number [facility] [address] Department [employer] [place] [address] * (ABNORMAL) CRP (acute phase) (11/25/2019 4:49 AM CDT) Pathologist [facility] CRP 27.7(H) <=10.0 mg/L [facility] Blood specimen (specimen) 11/25/2019 4:49 AM CDT 11/25/2019 4:49 AM CDT Vaishali Clemente LAB BLOOD ORDERABLES Final Result Performing Organization Address [facility] de Phone Number [facility] [address] Department of [employer] [place] [address] * (ABNORMAL) Comprehensive metabolic panel (11/25/2019 4:49 AM CDT) [facility] Sodium 140 135 - 145 mmol/L [facility] Potassium, pl 3.4 3.3 - 4.9 mmol/L [facility] Chloride 95(L) 97 - 110 mmol/L [facility] CO2 31 22 - 32 mmol/L [facility] Anion gap 14 2 - 15 mmol/L [facility] BUN 32(H) 8 - 25 mg/dL [facility] Creatinine 0.66 0.60 - 1.10 mg/dL [facility] Glucose 171 70 - 199 mg/dL [facility] Comment: Interpretive Data Fasting glucose >/= [...] 2017. Calcium 8.8 8.5 - 10.3 mg/dL [facility] Bilirubin, total 0.2 0.1 - 1.2 mg/dL [facility] Protein, pl 7.7 6.5 - 8.5 g/dL [facility] Albumin 3.2(L) 3.5 - 5.0 g/dL [facility] Alk phos 38(L) 40 - 130 Units/L [facility] ALT 14 7 - 45 Units/L [facility] AST 24 10 - 45 Units/L [facility] Comment:Slightly Hemolyzed S pecimen Blood specimen (specimen) 11/25/2019 4:49 AM CDT 11/25/2019 4:49 AM CDT us Vaishali Clemente DO LAB BLOOD ORDERABLES Final Result [facility] [address] Department [place] [address] * (ABNORMAL) CBC with auto differential (11/25/2019 4:49 AM CDT) WBC 8.5 3.8 - 9.9 K/cumm [facility] Hgb 8.1(L) 11.9 - 15.5 g/dL [facility] Hct 25.4(L) 35.6 - 45.5 % [facility] Plt 461(H) 150 - 400 K/cumm [facility] MPV 9.3 9.1 - 12.3 fL [facility] RBC 2.79(L) 3.90 - 5.20 M/cumm [facility] MCV 91.0 81.3 - 96.4 fL [facility] MCH 29.0 27.1 - 33.3 pg [facility] MCHC 31.9(L) 32.3 - 35.7 g/dL [facility] RDW CV 16.9(H) 11.1 - 14.9 % [facility] RDW SD 54.4(H) 35.7 - 48.1 fL [facility] NRBC abs 0.00 0.00 - 0.01 K/cumm [facility] Blood specimen (specimen) 11/25/2019 4:49 AM CDT 11/25/2019 4:49 AM CDT Vaishali Clemente DO LAB BLOOD ORDERABLES Final Result Performing Organization Address [facility]/ZIP Co de Phone Number [facility] [address] Department [place] [address] * (ABNORMAL) Iron profile w/ IBC (11/22/2019 5:52 AM CDT) Iron 40 35 - 145 mcg/dL [facility] TIBC 127(L) 250 - 400 mcg/dL [facility] Transferrin saturation 32 20 - 50 % [facility] Blood specimen (specimen) 11/22/2019 5:52 AM CDT 11/22/2019 5:52 AM CDT Bennett Saleh MD LAB BLOOD ORDERABLES Final Re sult Performing Organization Address City/[facility]/ZIP Co de Phone Number [facility] [address] Department [place] [address] * XR Chest 1 Vw (11/22/2019 5:17 [...] AM CDT) eGFR 94 mL/min/1.7 3 m2 [facility] Comment: Interpretive Data Reference Interval Normal ?>/= 90 mL/min/1.73m2 Mildly decreased* ? 60 - 89 mL/min/1.73m2 Mildly to moderately decreased ?45 - 59 mL/min/1.73m2 Moderately to severely decreased ??30 - 44 mL/min/1.73m2 Severely decreased ?15 - 29 mL/min/1.73m2 Kidney Failure ?< 15 ??mL/min/1.73m2 *Relative to young adult level If -Kittitian multiply value by 1.16. Estimated glomerular filtration [...] ORDERABLES Final Re sult Performing Organization Address [facility]/[place] Co de Phone Number [facility] [address] Department [employer] [place], [place] [id number] * (ABNORMAL) TSH (11/22/2019 3:38 AM CDT) Thyroid Stimulating Hormone 13.03(H) 0.30 - 4.20 mcIUnit/mL [facility] Blood specimen (specimen) 11/22/2019 3:38 AM CDT 11/22/2019 3:38 AM CDT Bennett Saleh MD LAB BLOOD ORDERABLES Final Re sult Performing Organization Address [facility]/[place] Co de Phone Number [facility] [address] [employer] [place], [place] [id number] * Magnesium (11/22/2019 3:38 AM CDT) Magnesium 1.8 1.4 - 2.5 mg/dL [facility] Blood specimen (specimen) 11/22/2019 3:38 AM CDT 11/22/2019 3:38 AM CDT Bennett Saleh MD LAB BLOOD ORDERABLES Final Re sult Performing Organization Address [facility]/[place] Co de Phone Number [facility] [address] [facility] [employer] [place], [place] [id number] * (ABNORMAL) Comprehensive metabolic panel (11/22/2019 3:38 AM CDT) Sodium 131(L) 135 - 145 mmol/L [facility] Potassium, pl 4.1 3.3 - 4.9 mmol/L [facility] Comment:Moderately Hemolyzed Specimen Chloride 90(L) 97 - 110 mmol/L [facility] CO2 30 22 - 32 mmol/L [facility] Anion gap 11 2 - 15 mmol/L [facility] BUN 30(H) 8 - 25 mg/dL [facility] Creatinine 0.65 0.60 - 1.10 mg/dL [facility] Glucose 105 70 - 199 mg/dL [facility] Comment: Interpretive Data Fasting glucose >/= [...] 2017. Calcium 8.7 8.5 - 10.3 mg/dL [facility] Bilirubin, total 0.2 0.1 - 1.2 mg/dL [facility] Protein, pl 7.6 6.5 - 8.5 g/dL [facility] Albumin 2.6(L) 3.5 - 5.0 g/dL [facility] Alk phos 39(L) 40 - 130 Units/L [facility] ALT 18 7 - 45 Units/L [facility] Comment:Moderately Hemolyzed Specimen AST 49(H) 10 - 45 Units/L [facility] Comment:Moderately Hemolyzed Specimen Blood specimen (specimen) 11/22/2019 3:38 AM CDT 11/22/2019 3:38 AM CDT Bennett Saleh MD LAB BLOOD ORDERABLES Final Re sult [facility] [address] Department of [employer] [place] [address] * Differential, auto (11/22/2019 3:37 AM CDT) Neutrophil abs 6.1 1.7 - 6.5 K/cumm [facility] Imm gran abs 0.0 0.0 - 0.1 K/cumm [facility] Lymphocyte abs 1.7 0.8 - 3.3 K/cumm [facility] Monocyte abs 0.5 0.2 - 0.8 K/cumm [facility] Eosinophil abs 0.2 0.0 - 0.5 K/cumm [facility] Basophil abs 0.1 0.0 - 0.1 K/cumm [facility] Neutrophil pct 70.9 % [facility] Comment: Interpretive Data Percent cell count reference ranges are not reported, since discordance with absolute values may lead to misinterpretation of CBC data. Current Interpretive Data was last revised on 2017. Imm gran pct 0.5 % [facility] Comment: Interpretive Data Percent cell count reference ranges are not reported, since discordance with absolute values may lead to misinterpretation of CBC data. Current Interpretive Data was last revised on 2017. Lymphocyte pct 19.5 % [facility] Comment: Interpretive Data Percent cell count reference ranges are not reported, since discordance with absolute values may lead to misinterpretation of CBC data. Current Interpretive Data was last revised on 2017. Monocyte pct 6.1 % [facility] Comment: Interpretive Data Percent cell count reference ranges are not reported, since discordance with absolute values may lead to misinterpretation of CBC data. Current Interpretive Data was last revised on 2017. Eosinophil pct 2.1 % [facility] Comment: Interpretive Data Percent cell count reference ranges are not reported, since discordance with absolute values may lead to misinterpretation of CBC data. Current Interpretive Data was last revised on 2017. Basophil pct 0.9 % [facility] Comment: Interpretive Data Percent cell count reference ranges are not reported, since discordance with absolute values may lead to misinterpretation of CBC data. Current Interpretive Data was last revised on 2017. Blood specimen (specimen) 11/22/2019 3:37 AM CDT 11/22/2019 3:37 AM CDT Bennett Saleh MD LAB BLOOD ORDERABLES Final Re sult [facility] [address] Department [place] [address] * (ABNORMAL) CBC with auto differential (11/22/2019 3:37 AM CDT) WBC 8.6 3.8 - 9.9 K/cumm [facility] Hgb 8.0(L) 11.9 - 15.5 g/dL [facility] Hct 25.6(L) 35.6 - 45.5 % [facility] Plt 478(H) 150 - 400 K/cumm [facility] MPV 9.0(L) 9.1 - 12.3 fL [facility] RBC 2.75(L) 3.90 - 5.20 M/cumm [facility] MCV 93.1 81.3 - 96.4 fL [facility] MCH 29.1 27.1 - 33.3 pg [facility] MCHC 31.3(L) 32.3 - 35.7 g/dL [facility] RDW CV 16.2(H) 11.1 - 14.9 % [facility] RDW SD 53.8(H) 35.7 - 48.1 fL [facility] NRBC abs 0.00 0.00 - 0.01 K/cumm [facility] Blood specimen (specimen) 11/22/2019 3:37 AM CDT 11/22/2019 3:37 AM CDT Bennett Saleh MD LAB BLOOD ORDERABLES Final Re sult [facility] [address] Department [place] [address] documented in this encounter Visit Diagnoses Not [...] documented as of this encounter Care Teams Rn Cardiovascular Relationship Specialty Start Date End Date Zeke Puente MD [address] [place] [address] PCP - General 12/02/18 Damon Swanson DO [address] [place] [address] Medical Oncologist/Db2 Developer Hematology and Oncology 10/25/17 Karl Smith Jr., MD [address] [place] [address] Surgeon General Surgery 11/07/19 documented as of this encounter
--- OUTSIDE RECORDS SUMMARY | 2024-02-27 03:15 | XMS_ITS | Encounter Summary ---
Author Organization [facility] Healthcare Address [address] [place] [address] Care Team Providers Care Picker Machine Operator Name Role Phone Damon Swanson DO Unavailable [phone] Zeke Puente MD Primary Care Provider [phone] Encounter Details Date Type Department Care Team (Latest Contact Info) Description 11/06/2019 7:42 PM CDT - 11/06/2019 10:29 PM CDT Hospital Encounter [facility] Diagnostic Imaging [address] [place] [address] [place] [id number] [place] [address] Discharge Disposition: Discharge to home or self [...] on file Legal Sex Female 12:30 PM LINING 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
--- OUTSIDE RECORDS SUMMARY | 2024-02-27 03:15 | XMS_ITS | Encounter Summary ---
Author Organization [facility] Healthcare Address [address] [place] [address] Care Team Providers Care Postdoctoral Scientist Name Role Phone Damon Swanson DO Unavailable [phone] Zeke Puente MD Primary Care Provider Encounter [...] on file Legal Sex Female 12:30 PM REGIONAL COORDINATOR Gender Identity Not on file Sexual [...] on filedocumented in this encounter Care Teams Postdoctoral Scientist Relationship Specialty Start Date End Date eZke Puente MD [address] [place] [address] PCP - General 12/02/18 Damon Swanson DO [address] [place] [id number] Medical Oncologist/Carver Hand Hematology and Oncology 10/25/17 documented as of this encounter
--- OUTSIDE RECORDS SUMMARY | 2024-02-27 03:15 | XMS_ITS | Encounter Summary ---
Author Organization [facility] Healthcare Address [address] [place] [address] Care Team Providers Care Aged Or Disabled Carer Name Role Phone Damon Swanson DO Unavailable [phone] Rene Shelton MD Primary Care Provider [phone] Encounter Details Date Type Department Care Team (Late st Contact Info) Description 07/31/2018 8:59 AM CDT - 07/31/2018 1:40 PM CDT Hospital Encounter [address] [address] Unknown, Rodrigo Allen, [address] [place] [address] Discharge Disposition: Discharge to home or self care Social History Tobacco Use Types Packs/Day Years Used Date Smoking Tobacco: Never Smokeless Tobacco: Never Alcohol Use Standard Drinks/Week Comments No 0 (1 standard drink = 0.6 oz pur e alcohol) Comments Unknown Sex and Gender Information Value Date Recorded Sex Assigned at Not on file Legal 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 Female 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 Gender Identity Not on file Sexual Orientation [...] RADIOLOGY Atrial Rate 67 BPM ER RADIOLOGY AR-Interval (MSEC) 180 ms ER RADIOLOGY QRS-Interval (MSEC) 100 ms ER RADIOLOGY QT-Interval (MSEC) 450 ms ER RADIOLOGY QTc 475 ms ER RADIOLOGY P [place] 49 degrees ER RADIOLOGY R [place] -42 degrees ER RADIOLOGY T [place] 92 degrees ER RADIOLOGY Diagnosis Normal sinus [...] ECG ORDERABLES Final Result Performing Organization Address City/[facility]/ZIP Co de Phone Number ER RADIOLOGY * B-type natriuretic peptide (07/31/2018 9:47 AM CDT) B-Natriuretic Peptide 59 0 - 100 pg/mL [facility] Comment: B Natriutetic Peptide METHOD: ??Siemens Centaur [...] ORDERABLES Final Res ult Performing Organization Address [facility] Co de Phone Number [address] [phone] * Troponin I (07/31/2018 9:47 AM CDT) Pathologist [facility] Troponin I <0.300 0.000 - 0.300 ng/mL [facility] Comment: Reference using CHRISTIANE Chemiluminescence ? Negative: Repeat in 4-6 hours as indicated. 07/31/2018 9:47 AM CDT 07/31/2018 9:51 AM CDT Narrative Resulting Agency Comment ER [employer] Rodrigo Temple DO LAB BLOOD ORDERABLES Final Res ult Performing Organization Address [facility]/ZIP Co de Phone Number [address] [phone] * (ABNORMAL) Comprehensive metabolic panel (07/31/2018 9:47 AM CDT) [facility] Sodium 135 135 - 145 mmol/L [facility] Potassium 3.8 3.3 - 5.1 mmol/L [facility] Chloride 92(L) 96 - 108 mmol/L [facility] Carbon Dioxide 31 22 - 32 mmol/L [facility] Anion Gap 12 7 - 16 [facility] Glucose 398(H) 70 - 100 mg/dL [facility] BUN 11 8 - 25 mg/dL [facility] Creatinine 0.7 0.5 - 1.1 mg/dL [facility] Comment: NOTE: Estimated GFR (Cockroft-Gault) will NOT be calculated unless patient Height and Weight were entered. Also, Kidney Disease Stage (GFR) and Estimated GFR ([place]ro[place]-Gault) will NOT be calculated if Creatinine result is <0.2. Kidney Disease Stage >90 mL/MIN [facility] Comment: NOTE; ??The GFR is an estimated [...] on dialysis Est GFR (Cockcroft-G) 97 ml/MIN [facility] Comment: Estimated GFR(Cockroft-Gault)is used to calculate patient medication dosage Calcium 9.2 8.6 - 10.3 mg/dL [facility] Total Protein 7.7 6.4 - 8.3 g/dL [facility] Albumin 4.1 3.5 - 5.0 g/dL [facility] Globulin 3.6(H) 2.3 - 3.5 gm/dL [facility] Albumin/Globulin Ratio 1.1 1.1 - 1.8 [facility] Total Bilirubin 1.1 0.0 - 1.2 mg/dL [facility] AST 123(H) 0 - 32 U/L [facility] ALT 96(H) 0 - 33 U/L [facility] Alkaline Phosphatase 52 35 - 104 U/L [facility] 07/31/2018 9:47 AM CDT 07/31/2018 9:51 AM CDT Narrative Resulting Agency Comment ER Rodrigo Temple DO LAB BLOOD ORDERABLES Final Res ult Performing Organization Address City/[facility]/ZIP Co de Phone Number [address] [phone] * (ABNORMAL) Creatine kinase (CK), total (07/31/2018 9:47 AM CDT) Creatine Kinase 699(H) 20 - 180 U/L [facility] 07/31/2018 9:47 AM CDT 07/31/2018 9:51 AM CDT Narrative Resulting Agency Comment ER etechies.in LAB BLOOD ORDERABLES Final Res ult [address] [phone] * (ABNORMAL) CBC with auto differential (07/31/2018 9:47 AM CDT) WBC 5.6 3.8 - 9.9 X10 3/ul [facility] RBC 3.60(L) 3.90 - 5.20 x10 6/ul [facility] Hemoglobin 11.0(L) 11.9 - 15.5 g/dL [facility] Hct 32.6(L) 35.6 - 45.5 % [facility] MCV 90.6 81.3 - 96.4 fl [facility] MCH 30.6 27.1 - 33.3 pg [facility] MCHC 33.7 32.3 - 35.7 g/dl [facility] RDW 13.7 11.1 - 14.9 % [facility] Plt Count 222 150 - 400 x10 3/ul [facility] MPV 10.7 9.1 - 12.3 fl [facility] Neut % 78.0 % [facility] Immature Gran % 0.4 % [facility] Lymph % 14.1 % [facility] [place] % 6.2 % [facility] Eos % 0.9 % [facility] AUTO BASO % 0.4 % [facility] NEUTROPHIL ABS # 4.4 1.7 - 6.5 x10 3/ul [facility] Immature Gran # 0.0 0.0 - 0.1 x10 3/ul [facility] Absolute Lymphs (auto) 0.8 0.8 - 3.3 x10 3/ul [facility] Absolute Monos (auto) 0.4 0.2 - 0.8 x10 3/ul [facility] Absolute Eos (auto) 0.1 0.0 - 0.5 x10 3/ul [facility] BASOPHIL ABS # 0.0 0.0 - 0.1 x10 3/ul [facility] Nucleat RBC Rel Count 0.0 #/100WBC [facility] NRBC abs 0.00 0.00 - 0.01 x10 3/ul [facility] Absolute Neutrophils 4,400 200 - 8,000 /ul [facility] 07/31/2018 9:47 AM CDT 07/31/2018 9:51 AM CDT Narrative Resulting Agency Comment ER us Rodrigo Temple DO LAB BLOOD ORDERABLES Final Res ult Performing Organization Address [facility]/State/[place] [address], [facility] [phone] * XR Chest 1 View (07/31/2018 9:09 AM CDT) Anatomical Region Laterality Modality Body, Chest N/A Radiographic Sylvia ging 07/31/2018 10:1 3 AM CDT Narrative 07/31/2018 10:18 AM CDT Patient Name: IRIS GIL ?Ordering Dr: Rodrigo Temple DO ?? D.O.B: 1955 ? Exam Date: 07/31/18 ?? 0909 ?? Age: 63 ?Sex: Female ? MR#: [id number] ?? Loc: ? RADIOLOGY REPORT ?? Order #[id number] ?? Radiology ? Chest 1 View Portable [...] 10:18 AM ?? T: ? Report ID: [id number] ?? Reading Location: ??[id number] ? REPORT ELECTRONICALLY SIGNED IN OTHER VENDOR SYSTEM ?? Resulting Agency Comment E Procedure Note Bud Taylor MD - 07/31/2018 Patient Name: IRIS GIL Dr: Rodrigo Temple DO DPerlita.B: 1955 Exam Date: 07/31/18908 Age: 63 Sex: Female MR#: [id number] Loc: RADIOLOGY REPORT Order #[id number] Radiology Chest 1 View Portable Signed EXAM [...] Bud Taylor M.D. MJ T: Report ID: [id number] Reading Location: [id number] REPORT ELECTRONICALLY SIGNED IN OTHER VENDOR SYSTEM us Rodrigo Temple DO IMG XR PROCEDURES Final Result * US Arterial Duplex Lower Extremity Bilateral (07/31/2018 12:00 AM CDT) Anatomical Region Laterality Modality Vascular Bilateral Ultrasound 08/02/2018 12:1 7 PM CDT Narrative 08/02/2018 1:32 PM CDT ? Patient Name: IRIS GIL ? MR#: [id number] ? Status: DEP ER ?D.O.B: 1955 Age: ??63 ?Sex: Female ? ADM/SER Dt: 07/31/18 ?Disch Dt: 07/31/18 ?LOC: H.ER ? Ordering Rodrigo Vaz DO ? Order #[id number] ? Arterial Doppler Legs ?? Keith Grande [...] is possible bilaterally. ? NTS ? Job: [id number] ? Dictated By: Keith Grande MD ?? Dictated For: Keith Grande MD ? <Electronically signed by Keith Grande MD> ? 08/03/18711 ?? Resulting Agency Comment E Procedure Note Keith Grande MD - 08/03/2018 Patient Name: IRIS GIL #: [id number] Status: DEP CLAU D.O.B: 1955 Age: 63Sex: Female ADM/SER Dt: 07/31/18 Disch Dt: 07/31/18LOC: [facility] Ordering Phy: Rodrigo Temple DO Order #[id number] Arterial Doppler Legs Keith Grande MD Signed [...] rest pain is possible bilaterally. NTS Job: [id number] Dictated By: Keith Grande MD Dictated For: Keith Grande MD <Electronically signed by Keith Grande MD> 08/03/18 0712 us Rodrigo Temple DO IMG US PROCEDURES Final Result documented in this encounter Visit Diagnoses Not on filedocumented in this encounter Care Teams Aged Or Disabled Carer Relationship Specialty Start Date End Date Rene Shelton MD [address] [address] PCP - General Family Medicine 06/12/18 12/01/18 Damon Swanson DO [address] [address] Medical Oncologist/Sweatband Decorating Machine Operator Hematology and Oncology 10/25/17 documented as of this encounter
--- OUTSIDE RECORDS SUMMARY | 2024-02-27 03:15 | XMS_ITS | Encounter Summary ---
Author Organization [facility] Healthcare Address [address] [place] [address] Care Team Providers Care Sales Inspector Name Role Phone Damon Swanson DO Unavailable Zeke Puente MD Primary Care Provider Sarah Baldwin MD, Karl Rosas. Unavailable Encounter Details Date Type Department Care Team (Late st Contact Info) Description 12/03/2019 2:14 PM CDT Anesthesia Event [facility] Operating Room [facility] [place] [id number] Amanda Jefferson MD [facility] [place] [address] Loree Deng MD [address] [facility] [address] Anesthesia Record Procedure Summary Procedure Name Responsible [...] Room 1630 Quick Note Pt transferred to halfway care room from OR 17W. Patient hemodynamically [...] on file Legal Sex Female 12:30 PM PTA Gender Identity Not on file Sexual Orientation Not on file documented as of this encounter OR Notes * Anesthesia Postprocedure Evaluation - Mary Ann Uriarte CRNA - 12/03/2019 4:45 PM CDT Patient: Iris Pascual Procedure Summary Date: 12/03/19 Room / Location: [facility] [place] [place] OPERATING ROOM 17W / [facility] OPERATING ROOM Anesthesia Start: 1414 Anesthesia Stop: [...] of consciousness: follows simple commands and arouses environmental compliance engineer Pain management: adequate Airway patency: adequate Anesthetic complications: no Cardiovascular status: acceptable and hemodynamically stable Respiratory status: acceptable Hydration status: acceptable Pt is: normothermic Nausea/Vomiting status: none * Anesthesia Procedure Notes - Mary Ann Uriarte CRNA - 12/03/2019 2:46 PM CDTAssociated Order(s): Airway Airway Patient location: OR Indications for airway management: anesthesia Difficult airway: no Staff: Supervising provider: Amanda Jefferson MD Placed by: BREAKER OFF: Mary Ann Uriarte CRNA Emergent airway documentation: [...] ?STAR Report Pat.Name: ??IRIS PASCUAL ? Pat.ID: ?[id number] ? St.Date: ?? 07/04/2019 ? Exam Time: [...] 1 tablet (50 mcg total) by mouth human resources executive before breakfast metroNIDAZOLE (FLAGYL) 500 mg tablet [...] opioids intended. Informed Consent: Discussed plan with BREAKER OFF. Anesthesia plan and risks discussed with patient. [...] Procedure Name Priority Date/Time Associated Diagnosis Comments LA AN PROCEDURE PLACEHOLDER Routine 12/03/2019 2:46 PM CDT LA AN ELECTIVE ENDOTRACHEAL AIRWAY Routine 12/03/2019 2:46 PM CDT documented in this encounter Results * LA AN ELECTIVE ENDOTRACHEAL AIRWAY, LA AN PROCEDURE PLACEHOLDER (12/03/2019 2:46 PM CDT) Narrative Mary Ann Uriarte CRNA - 12/03/2019 2:46 PM CDT Mary Ann Uriarte CRNA ? 12/03/2019 ??2:46 PM Airway Patient location: OR Indications for airway management: anesthesia Difficult airway: no Staff: Supervising provider: Amanda Jefferson MD Placed by: BREAKER OFF: Mary Ann Uriarte CRNA Emergent airway documentation: [...] documented as of this encounter Care Teams Sales Inspector Relationship Specialty Start Date End Date Zeke Puente MD [address] [place] [address] PCP - General 12/02/18 Damon Swanson DO [address] [place] [address] Medical Oncologist/Gatehouse Attendant Hematology and Oncology 10/25/17 Karl Smith Jr., MD [address] [place] [address] Surgeon General Surgery 11/07/19 documented as of this encounter
--- OUTSIDE RECORDS SUMMARY | 2024-02-27 03:15 | XMS_ITS | Encounter Summary ---
Author Organization [facility] Address [address] [place] [address] Phone Care Team Providers Care Care Associate Name Role Phone Damon Swanson DO Unavailable [phone] Zeke Puente MD Primary Care Provider [phone] Encounter Details Date Type Department Care Team (Late st Contact Info) Description 12/19/[address] 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
--- OUTSIDE RECORDS SUMMARY | 2024-02-27 03:15 | XMS_ITS | Encounter Summary ---
Author Organization [facility] Healthcare Address [address] [place] [address] Care Team Providers Care Central Office Operator Supervisor Name Role Phone Damon Swanson DO Unavailable [phone] Zeke Puente MD Primary Care Provider [phone] Encounter Details Date Type Department Care Team (Latest Contact Info) Description 11/06/2019 10:30 PM CDT - 11/06/2019 11:59 PM CDT Hospital Encounter [facility] [address] [place] [address] Discharge Disposition: Discharge to home or self [...] on file Legal Sex Female 12:30 PM BOX ANNEALER Gender Identity Not on file Sexual Orientation [...] 1 tablet (50 mcg total) by mouth supervisor garage before breakfast 30 tablet 1 0 06/17/19 [...] No dilated small or large bowel loops. Biscoe and clips are seen overlying the lower abdomen and pelvis from prior surgery. Procedure Note Antonino Jane MD - 11/07/2019 EXAMINATION: XR ABDOMEN AP 1 VIEW HISTORY: The patient is a 64-year-old female who presents with abdominal distention. TECHNIQUE: AP portable supine view of the abdomen. FINDINGS: Normal intestinal gas pattern. No dilated small or large bowel loops. Biscoe and clips are seen overlying the lower abdomen and pelvis from prior surgery. IMPRESSION: Normal gas pattern. Electronically signed by: Antonino Jane M.D. Zack Johnson LANDFILL GRADER IMG XR PROCEDURES Final Resu lt documented in this encounter Visit Diagnoses Not on filedocumented in this encounter Care Teams Central Office Operator Supervisor Relationship Specialty Start Date End Date Zeke Puente MD [address] [place] [address] PCP - General 12/02/18 Damon Swanson DO [address] [place] [address] Medical Oncologist/Gas Pumping Station Helper Hematology and Oncology 10/25/17 documented as of this encounter
--- OUTSIDE RECORDS SUMMARY | 2024-02-27 03:15 | XMS_ITS | Encounter Summary ---
Author Organization [facility] Healthcare Address [address] [place] [address] Care Team Providers Care Revising Clerk Name Role Phone Damon Swanson DO Unavailable [phone] Zeke Puente MD Primary Care Provider Sarah Baldwin MD, Karl Ralph. 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
--- OUTSIDE RECORDS SUMMARY | 2024-02-27 03:15 | XMS_ITS | Encounter Summary ---
Author Organization [facility] Healthcare Address [address] [place] [address] Care Team Providers Care Manager Requirements Name Role Phone Damon Swanson DO Unavailable [phone] Rene Shelton MD Primary Care Provider [phone] Encounter Details Date Type Department Care Team (Latest Contact Info) Description 06/21/2018 2:05 PM CDT - 06/21/2018 11:59 PM CDT Hospital Encounter [facility] Rene Shelton MD [address] [place] [address] Discharge Disposition: Discharge to home or self care Social History Tobacco Use Types Packs/Day Years Used Date Smoking Tobacco: Never Smokeless Tobacco: Never Alcohol Use Standard Drinks/Week Comments No 0 (1 standard drink = 0.6 oz pur e alcohol) Comments Unknown Sex and Gender Information Value Date Recorded Sex Assigned at Not on file Legal Sex Female 12:30 PM CAREER CENTER ADVISOR Gender Identity Not on file Sexual Orientation [...] filedocumented in this encounter Care Teams Manager Requirements Relationship Specialty Start Date End Date Rene Shelton MD [address] [address] PCP - General Family Medicine 06/12/18 12/01/18 Damon Swanson DO [address] [address] Medical Oncologist/Blade Grinder Hematology and Oncology 10/25/17 documented as of this encounter
--- OUTSIDE RECORDS SUMMARY | 2024-02-27 03:15 | XMS_ITS | Encounter Summary ---
Author Organization [facility] Healthcare Address [address] [place] [address] Care Team Providers Care Sheet Metal Apprentice Name Role Phone Damon Swanson DO Unavailable [phone] Zeke Puente MD Primary Care Provider [phone] Sarah Baldwin MD, Karl N. 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
--- OUTSIDE RECORDS SUMMARY | 2024-02-27 03:15 | XMS_ITS | Encounter Summary ---
Author Organization [facility] Healthcare Address [address] [place] [address] Care Team Providers Care Economic Consultant Name Role Phone Damon Swanson DO Unavailable [phone] Zeke Puente MD Primary Care Provider [phone] Encounter Details Date Type Department Care Team (Late st Contact Info) Description 02/22/2019 6:40 AM TICK ERADICATOR - 02/22/2019 10:42 AM TICK ERADICATOR Hospital Encounter [facility] GeorgiaCarina MD [address] [facility] [address] [place] [address] Discharge Disposition: Discharge to home or self [...] on file Legal Sex Female 12:30 PM TICK ERADICATOR Gender Identity Not on file Sexual Orientation Not on file documented as of this encounter Last Filed Vital Signs Vital Sign Reading Time Taken Comments Blood Pressure 132/78 02/21/2019 3:32 PM TICK ERADICATOR Pulse 84 02/21/2019 3:32 PM TICK ERADICATOR Temperature 36.6 ??C (97.8 ??F) 02/21/2019 3:32 PM CS T Respiratory Rate - - Oxygen Saturation 100% 02/21/2019 3:32 PM TICK ERADICATOR Inhaled Oxygen Concentration - - Weight 83 kg (183 lb) 02/21/2019 3:32 PM TICK ERADICATOR Height 157.5 cm (5' 2 ) 02/21/2019 3:32 PM TICK ERADICATOR Body Mass Index 33.47 02/21/2019 3:32 PM TICK ERADICATOR documented in this encounter Medications at Time [...] SCAN - PATHOLOGY 02/25/2019 12:0 0 AM TICK ERADICATOR ECG 12-LEAD 02/22/2019 7:24 AM TICK ERADICATOR documented in this encounter Results * SCAN - PATHOLOGY (02/25/2019 12:00 AM TICK ERADICATOR) Narrative 02/25/2019 12:00 AM TICK ERADICATOR Ordered by an unspecified provider. us Historical Provider Final Res ult * ECG 12 lead (02/22/2019 7:24 AM TICK ERADICATOR) Ventricular Rate EKG/Min 75 BPM [facility] Atrial Rate 75 BPM [facility] [place]-Interval (MSEC) 160 ms [facility] QRS-Interval (MSEC) 98 ms [facility] QT-Interval (MSEC) 398 ms [facility] QTc 444 ms [facility] P [place] 54 degrees [facility] R [place] -33 degrees [facility] T [place] 33 degrees [facility] Diagnosis Normal sinus rhythm Left axis deviation Cannot rule out Anterior infarct (cited on or before 18-NOV-2017) Abnormal ECG When compared with ECG of 31-JUL-2018 10:47, Questionable change in initial forces of Anterolateral leads Nonspecific T wave abnormality, improved in Lateral leads [facility] 02/22/2019 7:24 AM TICK ERADICATOR 02/22/2019 9:44 AM TICK ERADICATOR Narrative Resulting Agency Comment OUTPAT us Bela Stephens MD ECG ORDERABLES Final Result [facility] [address] [place] [address], [facility] documented in this encounter Visit Diagnoses Not on filedocumented in this encounter Care Teams Economic Consultant Relationship Specialty Start Date End Date Zeke Puente MD [address] [place] [address] PCP - General 12/02/18 Damon Swanson DO [address] [place] [address] Medical Oncologist/Cad Manager Hematology and Oncology 10/25/17 documented as of this encounter
--- OUTSIDE RECORDS SUMMARY | 2024-02-27 03:15 | XMS_ITS | Encounter Summary ---
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
--- OUTSIDE RECORDS SUMMARY | 2024-02-27 03:15 | XMS_ITS | Encounter Summary ---
Author Organization [facility] Healthcare Address [address] [place] [address] Care Team Providers Care Customer Logistics Manager Name Role Phone Damon Swanson DO Unavailable Zeke Puente MD Primary Care Provider [phone] Encounter Details Date Type Department Care Team (Late st Contact Info) Description 01/25/2019 2:09 PM CUSTOMER FIELD REPRESENTATIVE - 01/25/2019 11:13 PM [facility] Hospital Encounter [facility] [address] [place] [address] Unknown, BhavyaTere Rodríguez, DO [address] [facility] [place] [address] Dee Lin MD [address] [place] [address] Discharge Disposition: Discharge to [facility] facility Social History Tobacco Use Types Packs/Day Years Used Date Smoking Tobacco: Never Smokeless Tobacco: Never Alcohol Use Standard Drinks/Week Comments No 0 (1 standard drink = 0.6 oz pur e alcohol) PHQ-2 Answer Date Recorded PHQ-2 Score 0 11/03/2018 Comments Unknown Sex and Gender Information Value Date Recorded Sex Assigned at Not on file Legal Sex Female 12:30 PM CUSTOMER FIELD REPRESENTATIVE Gender Identity Not on file Sexual Orientation Not on file documented as of this encounter Last Filed Vital Signs Vital Sign Reading Time Taken Comments Blood Pressure 120/67 01/25/2019 2:25 PM CUSTOMER FIELD REPRESENTATIVE Pulse 81 01/25/2019 2:25 PM CUSTOMER FIELD REPRESENTATIVE Temperature 36.8 ??C (98.3 ??F) 01/25/2019 2:25 PM CS T Respiratory Rate - - Oxygen Saturation 100% 01/25/2019 2:25 PM CUSTOMER FIELD REPRESENTATIVE Inhaled Oxygen Concentration - - Weight 75 kg (165 lb 5.6 oz) 01/25/2019 2:25 PM CUSTOMER FIELD REPRESENTATIVE Height - - Body Mass Index 30.24 [...] Disposition Code Departure Means Destination Discharge to [facility]p facility documented in this encounter Plan of Treatment Not on file documented as of this encounter Procedures Procedure Name Priority Date/Time Associated Diagnosis Comments URINALYSIS, COMPLETE W/REFLEX TO CULTURE Routine 01/25/2019 8:00 PM CUSTOMER FIELD REPRESENTATIVE URINE CULTURE Routine 01/25/2019 8:00 PM CUSTOMER FIELD REPRESENTATIVE CBC WITH AUTO DIFFERENTIAL Routine 01/25/2019 4:08 PM CUSTOMER FIELD REPRESENTATIVE PROTIME-INR Routine 01/25/2019 4:08 PM CUSTOMER FIELD REPRESENTATIVE LIPASE Routine 01/25/2019 4:08 PM CUSTOMER FIELD REPRESENTATIVE COMPREHENSIVE METABOLIC PANEL Routine 01/25/2019 4:[address] FIELD REPRESENTATIVE CT ABDOMEN PELVIS W CONTRAST 01/25/2019 12:00 AM CUSTOMER FIELD REPRESENTATIVE documented in this encounter Results * Urine culture Urine, in and out catheter (01/25/2019 8:00 PM CUSTOMER FIELD REPRESENTATIVE) CULTURE URINE [facility] Organism YEAST [facility] CULTURE URINE >100,000 CFU/ml [facility] Urine, in and out catheter 01/25/2019 8:00 PM CUSTOMER FIELD REPRESENTATIVE 01/25/2019 8:07 PM CUSTOMER FIELD REPRESENTATIVE us Tere Ruby DO LAB MICROBIOLOGY - GENERAL ORDE MORALES Final Result [facility] [address] [place] [address], [facility] [phone] * (ABNORMAL) URINALYSIS, COMPLETE W/REFLEX TO CULTURE (01/25/2019 8:00 PM CUSTOMER FIELD REPRESENTATIVE) Ur Collection Type STRAIGHT CATH [facility] Ur Culture Indicated? C S INDICATED [facility] Comment: Culture report to follow. Urine Color YELLOW YELLOW [facility] Urine Clarity TURBID [facility] Urine Glucose (UA) NORMAL NORMAL mg/dL [facility] Urine Bilirubin NEGATIVE NEGATIVE mg/dl [facility] Urine Ketones NEGATIVE NEGATIVE mg/dL [facility] Ur Specific [place] >1.060(H) 1.005 - 1.025 [facility] Urine Blood 0.2(A) NEGATIVE mg/dl [facility] Urine pH 5.0 5.0 - 8.0 [facility] Urine Protein 30(A) NEGATIVE mg/dL [facility] Urine Urobilinogen NORMAL NORMAL mg/dL [facility] Urine Nitrite NEGATIVE NEGATIVE [facility] Ur Leukocyte Esterase 500(A) NEGATIVE Bernadette/ul [facility] Ur Microscopic Review Indicated or Ordered [facility] Urine RBC 166 0 - 2 /HPF [facility] Urine WBC 1654 0 - 2 /HPF [facility] Urine WBC Clumps Marked /HPF [facility] Urine Bacteria Rare /HPF [facility] Urine Yeast (Budding) Marked /HPF [facility] Ur Squamous Epith Cells Rare /HPF [facility] 01/25/2019 8:00 PM CUSTOMER FIELD REPRESENTATIVE 01/25/2019 8:07 PM CUSTOMER FIELD REPRESENTATIVE Narrative [facility] - 01/25/2019 8:17 PM CUSTOMER FIELD REPRESENTATIVE Indication(s) for ordering ?? Dysuria bw Straight catheter Resulting Agency Comment ER us Tere Ruby DO LAB URINE ORDERABLES Final Resu lt [facility] [address] [place] [address], [facility] [phone] * Lipase (01/25/2019 4:08 PM CUSTOMER FIELD REPRESENTATIVE) Pathologist [facility] Lipase 16 13 - 60 U/L [facility] 01/25/2019 4:08 PM CUSTOMER FIELD REPRESENTATIVE 01/25/2019 4:15 PM CUSTOMER FIELD REPRESENTATIVE Narrative Resulting Agency Comment ER us Tere Ruby DO LAB BLOOD ORDERABLES Final Resu lt [facility] [address] [phone] * (ABNORMAL) Comprehensive metabolic panel (01/25/2019 4:08 PM CUSTOMER FIELD REPRESENTATIVE) [facility] Sodium 132(L) 135 - 145 mmol/L [facility] Potassium 4.1 3.3 - 5.1 mmol/L [facility] Chloride 94(L) 96 - 108 mmol/L [facility] Carbon Dioxide 26 22 - 32 mmol/L [facility] Anion Gap 12 7 - 16 [facility] Glucose 309(H) 70 - 100 mg/dL [facility] BUN 18 8 - 25 mg/dL [facility] Creatinine 0.9 0.5 - 1.1 mg/dL [facility] Comment: NOTE: Estimated GFR (Cockroft-Gault) will NOT be calculated unless patient Height and Weight were entered. Also, Kidney Disease Stage (GFR) and Estimated GFR (Cockroft-Gault) will NOT be calculated if Creatinine result is <0.2. Kidney Disease Stage 81 mL/MIN [facility] Comment: NOTE; ??The GFR is an estimated [...] dialysis Calcium 9.2 8.6 - 10.3 mg/dL [facility] Total Protein 7.9 6.4 - 8.3 g/dL [facility] Albumin 4.2 3.5 - 5.0 g/dL [facility] Globulin 3.7(H) 2.3 - 3.5 gm/dL [facility] Albumin/Globulin Ratio 1.1 1.1 - 1.8 [facility] Total Bilirubin 0.8 0.0 - 1.2 mg/dL [facility] AST 18 0 - 32 U/L [facility] ALT 16 0 - 33 U/L [facility] Alkaline Phosphatase 60 35 - 104 U/L [facility] 01/25/2019 4:08 PM CUSTOMER FIELD REPRESENTATIVE 01/25/2019 4:15 PM CUSTOMER FIELD REPRESENTATIVE Narrative Resulting Agency Comment ER us Tere Ruby DO LAB BLOOD ORDERABLES Final Resu lt [facility] [address] [place] [address], [facility] [phone] * Protime-INR (01/25/2019 4:08 PM CUSTOMER FIELD REPRESENTATIVE) PT 13.5 12.2 - 14.8 SECONDS [facility] Comment: New reference ranges in use 6-28-19. INR 1.00 [facility] Comment: Recommended Therapeutic range for Oral Anticoagulant Therapy No anti-coagulation therapy ? Normal Range: ?0.8-1.4 Anti-coagulation therapy ? Low intensity therapy ?2.0-3.0 ? High intensity therapy ?? 2.5-3.5 Critical Value ? Greater than or equal to 5.0 Patients should be monitored for serious bleeding. 01/25/2019 4:08 PM CUSTOMER FIELD REPRESENTATIVE 01/25/2019 4:15 PM CUSTOMER FIELD REPRESENTATIVE Narrative Resulting Agency Comment ER Tere Ruby DO LAB BLOOD ORDERABLES Final Resu lt [facility] [address] [place] [address], [facility] [phone] * (ABNORMAL) CBC with auto differential (01/25/2019 4:08 PM CUSTOMER FIELD REPRESENTATIVE) WBC 8.1 3.8 - 9.9 X10 3/ul [facility] RBC 3.60(L) 3.90 - 5.20 x10 6/ul [facility] Hemoglobin 10.7(L) 11.9 - 15.5 g/dL [facility] Hct 32.2(L) 35.6 - 45.5 % [facility] MCV 89.4 81.3 - 96.4 fl [facility] MCH 29.7 27.1 - 33.3 pg [facility] MCHC 33.2 32.3 - 35.7 g/dl [facility] RDW 14.2 11.1 - 14.9 % [facility] Plt Count 242 150 - 400 x10 3/ul [facility] MPV 9.8 9.1 - 12.3 fl [facility] Neut % 77.8 % [facility] Immature Gran % 0.5 % [facility] Lymph % 15.6 % [facility] [place] % 4.9 % [facility] Eos % 0.7 % [facility] AUTO BASO % 0.5 % [facility] NEUTROPHIL ABS # 6.3 1.7 - 6.5 x10 3/ul [facility] Immature Gran # 0.0 0.0 - 0.1 x10 3/ul [facility] Absolute Lymphs (auto) 1.3 0.8 - 3.3 x10 3/ul [facility] Absolute Monos (auto) 0.4 0.2 - 0.8 x10 3/ul [facility] Absolute Eos (auto) 0.1 0.0 - 0.5 x10 3/ul [facility] BASOPHIL ABS # 0.0 0.0 - 0.1 x10 3/ul [facility] Nucleat RBC Rel Count 0.0 #/100WBC [facility] NRBC abs 0.00 0.00 - 0.01 x10 3/ul [facility] Absolute Neutrophils 6,300 200 - 8,000 /ul [facility] 01/25/2019 4:08 PM CUSTOMER FIELD REPRESENTATIVE 01/25/2019 4:15 PM CUSTOMER FIELD REPRESENTATIVE Narrative Resulting Agency Comment ER us Tere Ruby DO LAB BLOOD ORDERABLES Final Resu lt [facility] [address] [place] [address], [facility] [phone] * CT Abdomen Pelvis W Contrast (01/25/2019 12:00 AM CUSTOMER FIELD REPRESENTATIVE) Anatomical Region Laterality Modality Body N/A Computed Tomogra phy 01/25/2019 5:29 PM CUSTOMER FIELD REPRESENTATIVE Narrative 01/25/2019 5:39 PM CUSTOMER FIELD REPRESENTATIVE Patient Name: IRIS GIL ?Ordering Tere Rosenthal DO ?? D.O.B: 1955 ? Exam Date: 15/19 ?? 0000 ?? Age: 64 ?Sex: Female ? MR#: [id number] ?? Loc: ? RADIOLOGY REPORT ?? Order #[id number] ?? CT Scan ? CT Abd/Pelvis W [...] 5:39 PM ?? T: ? Report ID: [id number] ?? Reading Location: ??[id number] ? REPORT ELECTRONICALLY SIGNED IN OTHER VENDOR SYSTEM ?? Resulting Agency Comment E Procedure Note Mohit Ortez DO - 01/25/2019 Patient Name: IRIS GIL Dr: Tere Ruby DO D.O.B: 1955 Exam Date: 01/25/19 0000 Age: 64 Sex: Female MR#: [id number] Loc: RADIOLOGY REPORT Order #[id number] CT Scan CT Abd/Pelvis W IV Contrast [...] signed by Mohit CASTRO T: Report ID: [id number] Reading Location: [place] [address] REPORT ELECTRONICALLY SIGNED IN OTHER VENDOR SYSTEM Tere Ruby DO IMManuel CT PROCEDURES Final Result documented in this encounter Visit Diagnoses Not on filedocumented in this encounter Care Teams Customer Logistics Manager Relationship Specialty Start Date End Date Zeke Puente MD [address] [place] [address] PCP - General 12/02/18 Damon Swanson DO [address] [place] [address] Medical Oncologist/Barback Hematology and Oncology 10/25/17 documented as of this encounter
--- OUTSIDE RECORDS SUMMARY | 2024-02-27 03:15 | XMS_ITS | Encounter Summary ---
Author Organization [facility] Address [address] [place] [address] Phone Care Team Providers Care Temple Meat Cutter Name Role Phone Damon Swanson DO Unavailable [phone] Zeke Puente MD Primary Care Provider [phone] Encounter Details Date Type Department Care Team (Late st Contact Info) Description 02/22/2019 Orders Only [facility] [place], [place] Carina Ho MD [address] [address] Social History Tobacco Use Types Packs/Day Years Used Date Smoking Tobacco: Never Smokeless Tobacco: Never Alcohol Use Standard Drinks/Week Comments No 0 (1 standard drink = 0.6 oz pur e alcohol) PHQ-2 Answer Date Recorded PHQ-2 Score 0 11/03/2018 Comments Unknown Sex and Gender Information Value Date Recorded Sex Assigned at Not on file Legal Sex Female 12:30 PM INSTALLERS MECHANICAL Gender Identity Not on file Sexual Orientation Not on file documented as of this encounter Plan of Treatment Not on file documented as of this encounter Procedures Procedure Name Priority Date/Time Associated Diagnosis Comments SURGICAL PATHOLOGY Routine 02/22/2019 3: 41 PM INSTALLERS MECHANICAL documented in this encounter Results * Surgical pathology (02/22/2019 3:41 PM INSTALLERS MECHANICAL) 02/22/2019 3:41 PM INSTALLERS MECHANICAL 02/22/2019 3:41 PM INSTALLERS MECHANICAL Narrative 02/25/2019 10:14 AM INSTALLERS MECHANICAL [facility] Department of Pathology [facility] [place], [place] [address] ?? Final Report Patient Name: IRIS GIL : ??1955 (Age: 64) Gender: ??F Address: ??[address] [place] [address] [facility] #: [id number] Service: DEFAULT Location: GI Lab [facility] Patient Type: Same Day Service ? Taken: 02/22/2019 Received: 02/22/2019 Accessioned: 02/22/2019 Reported: 02/25/2019 Physician(s): Carina Ho M.D. Diagnosis: A) Stomach, biopsy: - Unremarkable body-type mucosa. - Negative for H. pylori. B) Random colon biopsies: Unremarkable colonic mucosa, no histopathologic abnormalities. C) Sigmoid colon polyp, polypectomy: Tubular adenoma. Harlan Burnett M.D. Report Electronically Reviewed and Signed Out [...] on filedocumented in this encounter Care Teams Temple Meat Cutter Relationship Specialty Start Date End Date Zeke Puente MD [address] [place] [address] PCP - General 12/02/18 Damon Swanson DO [address] [place] [address] Medical Oncologist/Technical Sales Associate Hematology and Oncology 10/25/17 documented as of this encounter
--- OUTSIDE RECORDS SUMMARY | 2024-02-27 03:15 | XMS_ITS | Encounter Summary ---
Author Organization [facility] Healthcare Address [address] [place] [address] Care Team Providers Care Library Monitor Name Role Phone Damon Swanson DO Unavailable [phone] Zeke Puente MD Primary Care Provider [phone] Sarah Baldwin MD, Karl Ralph. Unavailable [phone] Encounter Details Date Type Department Care Team (Latest Contact Info) Description 11/08/2019 10:28 AM CDT - 11/08/2019 11:59 PM CDT Hospital Encounter [facility] [address] [place] [address] Discharge Disposition: Discharge to home or self [...] on file Legal Sex Female 12:30 PM BLOCKER AND POLISHER GOLD WHEEL Gender Identity Not on file Sexual Orientation [...] 1 tablet (50 mcg total) by mouth data engineer before breakfast 30 tablet 1 0 06/17/19 [...] in this encounter Results * US ZAYNAB And Arterial Doppler Lower [...] on filedocumented in this encounter Care Teams Library Monitor Relationship Specialty Start Date End Date Zeke Puente MD [address] [place] [address] PCP - General 12/02/18 Damon Swanson DO [address] [place] [address] Medical Oncologist/Business Intelligence Manager Hematology and Oncology 10/25/17 Karl Smith Jr., MD [address] [place] [address] Surgeon General Surgery 11/07/19 documented as of this encounter
--- OUTSIDE RECORDS SUMMARY | 2024-02-27 03:15 | XMS_ITS | Encounter Summary ---
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 show [...] depth pinch but not ample Muscle Loss [place] - Temporalis Muscle: Can see/feel well-defined [...] Wounds Evidenced by: Physicalfinding Interventions: Communication, Encouragement, [place] diet preferences within the limits of nutrition [...] Emmanuel each day for optimal wound healing.Call [facility] Dietitian's office at [phone] for questions about your diet. Nutrition Follow-Up : 11/15/19 Meche Loco MS,RD,LD [phone] * Markel Bourgeois MD - 11/11/2019 9:22 [...] mg 40 mg oral Daily Zack Johnson, VEHICLE DETAILER 40 mg at 11/11/19 0841 ??? piperacillin-tazobactam (ZOSYN) 3.375 g in sodium chloride 0.9% 100 mL IVPB 3.375 g [id number] [facility] Markel Bourgeois MD 200 mL/hr at 11/11/19 0841 3.375 g at 11/11/19 0841 ??? polyethylene glycol (MIRALAX) packet 17 g 17 g oral Daily Zack Loganmily, VEHICLE DETAILER 17 g at 11/11/200741 ??? sodium chloride 0.9% flush 0.5-20 mL 0.5-20 mL intra-catheter Q8H [facility] Sina Schilling MD 10mL at 11/11/19 0633 ??? sodium chloride 0.9% flush 0.5-20 mL 0.5-20 mL intra-catheter PRN Sina Schilling MD ??? vancomycin 1,000 mg/200 mL in dextrose 5% (premix) 1,000 mg 1,000 mg intravenous Q24H Zack Perdomojuice, VEHICLE DETAILER 1,000 mg at 11/11/19 0656 Objective: Vitals: [...] abnormal finding on CT. Markel Bourgeois MD [facility] Call [phone] 11/11/2019 9:22 AM * Reji Whittaker MD [...] and chronic wounds who presents from a care home for wound evaluation. Patient who is A&O x1 is unable to give any accurate history, all history obtained from chart review. Patient has wound to her buttocks and bilateral heels that are gangrenous and complains of bilateral leg pain. Also patient has had numerous admissions at [facility] for bacteremia requiring IV antibiotics and wound [...] input appreciated Called Son Braulio Turner at [phone] He would want another Son whose number he would get give consent for Transfusion 11/07/19 17:45 Spoke with Son Mr Alisson House [phone] He consents to having his mother transfused [...] No dilated small or large bowel loops. Veyo and clips are seen overlying the lower abdomen and pelvis from prior surgery. Impression: Normal gas pattern. Electronically signed by: Antonino Jane M.D. ASSESSMENT/PLAN: Active Problems: Moderate malnutrition (CMS/HCC) Sepsis Proteus and Morganella Gangrenous wounds - patient has gangrenous wounds to bilateral heels and sacral area - has had numerous debridements at [facility] - last MRI 07/02/2019 did not show [...] mg 10 mg oral Daily Zack Johnson VEHICLE DETAILER 10 mg at 11/10/19829 ??? aspirin tablet 325 mg 325 mg oral Daily Zack Johnson NP 325 mg at 11/10/19828 ??? atorvastatin (LIPITOR) tablet 40 mg 40 mg oral Nightly Zack Johnson VEHICLE DETAILER 40 mg at 11/09/192032 ??? chlorthalidone tablet 25 mg 25 mg oral Daily Zack Johnson VEHICLE DETAILER 25 mg at 11/10/19828 ??? dextrose oral [...] 100 mg 100 mg oral BID PRN iSna Schilling MD ??? enoxaparin (LOVENOX) syringe 40 [...] 50 mcg oral Daily - 0600 Zack Jonhson NP 50 mcg at11/10/19 0539 ??? ondansetron [...] chloride 0.9% 100 mL IVPB 3.375 g [id number] [facility] Markel Bourgeois MD 200 mL/hr at 11/10/19 [...] abnormal finding on CT. Markel Bourgeois MD [facility] Call [phone] 11/10/2019 10:15 AM * Arely Fam, [facility] - 11/10/2019 8:37 AM CDT Pharmacokinetic Consult [...] mg 10 mg oral Daily Zack Akdiegoeljuice, VEHICLE DETAILER 10 mg at 11/09/19 0900 ??? aspirin tablet 325 mg 325 mg oral Daily Zack Loganeljuice, VEHICLE DETAILER 325 mg at 11/09/19 0900 ??? atorvastatin (LIPITOR) tablet 40 mg 40 mg oral Nightly Zack Johnson, VEHICLE DETAILER 40 mg at 11/08/19 2232 ??? chlorthalidone tablet 25 mg 25 mg oral Daily Zack Akombeljuice, VEHICLE DETAILER 25 mg at 11/09/19 0900 ??? dextrose [...] chloride 0.9% 100 mL IVPB 3.375 g [id number] [facility] Markel Bourgeois MD 200 mL/hr at 11/09/19 0859 3.375 g at 11/09/19 0859 ??? polyethylene glycol (MIRALAX) packet 17 g 17 g oral Daily Zack Johnson NP 17 g at 11/07/200938 ??? sodium chloride 0.9% flush 0.5-20 mL 0.5-20 mL intra-catheter Q8H [facility] Sina Schilling MD 10mL at 11/09/19 1218 ??? sodium chloride 0.9% flush 0.5-20 mL 0.5-20 mL intra-catheter PRN Sina Schilling MD ??? vancomycin 1,000 mg/200 mL in dextrose 5% (premix) 1,000 mg 1,000 mg intravenous Q24H Zack Johnson, VEHICLE DETAILER 1,000 mg at 11/09/19 0608 Objective: Vitals: [...] abnormal finding on CT. Oleksandr Ozuna NP [facility] Call [phone] 11/09/2019 3:03 PM Cosigned by Avtar Mcknight [...] and chronic wounds who presents from a care home for wound evaluation. Patient who is A&O x1 is unable to give any accurate history, all history obtained from chart review. Patient has wound to her buttocks and bilateral heels that are gangrenous and complains of bilateral leg pain. Also patient has had numerous admissions at [facility] for bacteremia requiring IV antibiotics and wound [...] input appreciated Called Son Braulio Turner at [phone] He would want another Son whose number he would get give consent for Transfusion 11/07/19 17:45 Spoke with Son Mr Alisson House [phone] He consents to having his mother transfused [...] area - has had numerous debridements at [facility] - last MRI 07/02/2019 did not show [...] 1. Reji Whittaker MD * Vernell Patton [facility] - 11/08/2019 2:44 PM CDT Per P&T [...] and chronic wounds who presents from a care home for wound evaluation. Patient who is A&O x1 is unable to give any accurate history, all history obtained from chart review. Patient has wound to her buttocks and bilateral heels that are gangrenous and complains of bilateral leg pain. Also patient has had numerous admissions at [facility] for bacteremia requiring IV antibiotics and wound [...] input appreciated Called Son Braulio Turner at [phone] He would want another Son whose number he would get give consent for Transfusion 11/07/19 17:45 Spoke with Son Mr Alisson House [phone] He consents to having his mother transfused [...] PM Result Value Ref Range Product code [id number] Unit Number [id number] Product Blood Type OPOS Dispense Status PRESUMED [...] No dilated small or large bowel loops. Veyo and clips are seen overlying the lower abdomen and pelvis from prior surgery. Impression: Normal gas pattern. Electronically signed by: Antonino Jane M.D. ASSESSMENT/PLAN: Active Problems: Moderate malnutrition (CMS/HCC) Gangrenous wounds - patient has gangrenous wounds to bilateral heels and sacral area - has had numerous debridements at [facility] - last MRI 07/02/2019 did not show [...] and chronic wounds who presents from a care home for wound evaluation. Patient who is A&O x1 is unable to give any accurate history, all history obtained from chart review. Patient has wound to her buttocks and bilateral heels that are gangrenous and complains of bilateral leg pain. Also patient has had numerous admissions at [facility] for bacteremia requiring IV antibiotics and wound [...] input appreciated Called Son Braulio Turner at [phone] He would want another Son whose number he would get give consent for Transfusion 11/07/19 17:45 Spoke with Son Mr Alisson House [phone] He consents to having his mother transfused [...] and read back by: Joleen Michel RN ([phone]) on 11/07/2019 11:56:21 by: Berta Martinez MT [...] No dilated small or large bowel loops. Veyo and clips are seen overlying the lower [...] area - has had numerous debridements at [facility] - last MRI 07/02/2019 did not show [...] 1. Reji Whittaker MD * Conrad Huynh, [facility] - 11/07/2019 12:54 AM CDT Pharmacokinetic Consult [...] this encounter H&P Notes * Zack Johnson, VEHICLE DETAILER - 11/06/2019 10:22 PM CDT Images from the original note were not included. History and Physical CHIEF COMPLAINT Chief Complaint Patient presents with ??? Wound Check HPI Patient is a 64 y.o. female with a medical history of dementia, diabetes type 2, hyperlipidemia, hypothyroidism, neuropathy, PVD, hypertension and chronic wounds who presents from a care home for wound evaluation. Patient who is A&O x1 is unable to give any accurate history, all history obtained from chart review. Patient has wound to her buttocks and bilateral heels that are gangrenous and complains of bilateral leg pain. Also patient has had numerous admissions at [facility] for bacteremia requiring IV antibiotics and wound [...] and son. SOCIAL HISTORY Patient lives at [facility] in [place]. HOME MEDICATIONS Prior to Admission medications Medication [...] area - has had numerous debridements at [facility] - last MRI 07/02/2019 did not show [...] Physician: Zeke Puente MD Voice recognition software [employer] was used dictate and transcribe this document. Commercial Truck Driver variances may occur. Despite proofreading, typographical errors [...] HTN, and chronic wounds. She is a care home resident with chronic wounds to her buttocks [...] depth pinch but not ample Muscle Loss [place] - Temporalis Muscle: Can see/feel well-defined [...] is A&O x 1 per chart. From [place]. -Pt briefly awoke for RD visit, but [...] your doctor. Additional resources available from the [employer] can be found at www.diabetes.org/nutrition Recommend to continue drinking Emmanuel two times per day for 30 days or until your wound is healed. Emmanuel can be purchased at [employer] or on [employer]. If you order on [employer], you may save $15 on any one (1) Emmanuel multipack with code: [id number]. Instructions: mix the packet of Emmanuel with 8-10 fluid ounces of water, diet clear soda, or whichever beverage you prefer. Once mixed, it must be consumed within 24 hours. Continue to include high sources of protein (chicken, turkey, peanut butter, nuts, beans, fish, eggs, cheese, [place] yogurt, etc.) in your diet to sales route driver helper in wound healing. Additional information is available online at www.[employer] Drink Ensure High Protein or Glucerna 1-2 times daily if your appetite/meal intakes are poor. Call [facility] Dietitian's office at [phone] for questions about your diet. Nutrition Follow-Up [...] a nonhealing right heel wound. [facility]. In the ER the patient had a [...] injection 15 Units 15 Units subcutaneous QAM aZck Johnson NP 15 Units at 11/07/19 0823 [...] chloride 0.9% 100 mL IVPB 3.375 g [id number] Yoandy Grullon MD 200 mL/hr at 11/07/19 [...] 1. Codeine the SH: Patient lives at [facility] in [place]. FH: Family History Problem Relation Age of [...] back number. Brenda Arita RN * Lety lOguin RN - 11/10/2019 4:05 PM CDT COVID-19 swab returned with presumptive positive result. Request entered to transfer to 7th floor. amusement park entertainer Debbie and Dr. Whittaker informed. documented in this encounter ED Notes * Sina Schilling MD - 11/06/2019 5:41 PM CDT Images from the original note were not included. HPI Chief Complaint Patient presents with ??? Wound Check 5:41 PM - Iris Gil is a 64 y.o. female patient with a history of HTN, DM, dementia, presenting to the ED, via EMS, from [place], for evaluation of wounds to bilateral heels [...] 11/05 2108 Comment: Case discussed with PA saturation diver for Dr. Whittaker, [facility]. Time discussed: 2108 HPI, physical exam, [...] heel area By: Zuleika Gil Impression: Gangrene ([facility]) Sepsis ([facility]) 8:46 PM: This note is prepared by Zulieka Gil, acting as a scribe for Sian Schilling MD. I electronically signed this note at 8:46 PM on 11/06/2019. I, Sina Schilling MD, have personally performed the services described in the documentation , reviewed the documentation, as recorded by the scribe in my presence, and it accurately and completely records my words and actions. Sina Schilling MD 11/12/19 2761 * Tressa Jones, RN - 11/06/2019 4:34 PM CDT Pt to [facility] from [facility] in [place]. EMS states the equipment application specialist at the [facility] wanted the pttransported to this ER for [...] Expected time: Means of arrival: Comments: [facility]. 64 [facility] S[facility] 11/06/19 1627 documented in [...] earlier time becomes available. BELA López, ACM-SW [phone] * Provider Query - Reji Whittaker MD [...] you, Tiffani Anguiano R.N., CCDS Certified Clinical Middle School Teacher [email or web address] * Plan of Care - Edie Hooks [...] sob. Pt received picc line today for residential antibiotics. Continue to monitor pt. Brenda Arita RN * Plan of Care - Vandana Rider MSW - 11/19/2019 2:08 PM CDT S/w pt's son Braulio who referred sw to his brother Alisson, ph # [phone]. Sw called and s/w Elena referred sw to his sister Ailyn. Per Morg[place]ashmir Ailyn is to make the decision whether pt would return home to pt's home with the assist of Ailyn. Sw reached out to Ailyn, ph # [phone], to discuss d/c plans. Sw also discussed pt's need for 6 weeks of iv abx and wound care. Per dtr pt didn't have wounds on her heels, she had a wound on her bottom and on her inner thigh but not her heels. She doesn't want her mom to return to [facility]. Per Ailyn pt had been at [facility] almost 100 days. Theywere just at the point to start charging for pt's stay. Dtr is open to looking into LTAC for pt forthe abx and wound care. Per Ailyn pt had been at a facility, thinks it was [facility] in [facility]. She is ok with looking into ltacs in [place]. Discussed LTAC options, and ok with looking into [facility]. Referral made per [facility]. S/w Christina with [facility] and she will review pt's case and reach out to family. Ailyn's eventual goal is for pt to return to her home and dtr to assist. BELA López, [facility]- [phone] * [facility] Note - Vandana Rider MSW - 11/19/2019 2:01 PM CDT Patient Information: Meds and Admin Active Only All Meds/Most Recent Administrations piperacillin-tazobactam (ZOSYN) 3.375 g in sodium chloride 0.9% 100 mL IVPB [[id number]] Ordering Provider: Sina Schilling MD Status: Completed [...] Performed by: Holly Caba RN Scanned Package: [id number], 2552-4156-61 sodium chloride 0.9% flush 0.5-20 mL [[id number]] Ordering Provider: Sina Schilling MD Status: Verified Ordered On: 11/07/1949 Start: 11/07/19129 Dose (Remaining/Total): 0.5-20 mL (--/--) Route: intra-catheter Frequency: Every 8 hours scheduled Rate/Duration: -- / -- Admin Instructions: Flush volume based on line type and size. Timestamps Action Dose Route Other Information 11/19/19826 Given 10 mL intra-catheter Performed by: Brenda Arita RN Scanned Package: [id number] sodium chloride 0.9% flush 0.5-20 mL [[id number]] Ordering Provider: Sina Schilling MD Status: Verified Ordered On: 11/07/1949 Start: 11/07/1949 Dose (Remaining/Total): 0.5-20 mL (--/--) Route: intra-catheter Frequency: As needed Rate/Duration: -- / -- Admin Instructions: Flush volume based on line type and size. Flush before and after each use. (No admins recorded for this medication) ondansetron ODT (ZOFRAN-ODT) disintegrating tablet 4 mg [[id number]] Ordering Provider: Sina Schilling MD Status: Verified Ordered On: 11/07/1949 Start: 11/07/1949 Dose (Remaining/Total): 4 mg (--/--) Route: oral Frequency: Every 6 hours PRN Rate/Duration: -- / -- (No admins recorded for this medication) ondansetron (ZOFRAN) injection 4 mg [[id number]] Ordering Provider: Sina Schilling MD Status: Verified Ordered On: 11/07/1949 Start: 11/07/1949 Dose (Remaining/Total): 4 mg (--/--) Route: intravenous Frequency: Every 6 hours PRN Rate/Duration: -- / 2 Minutes (No admins recorded for this medication) docusate sodium (COLACE) capsule 100 mg [[id number]] Ordering Provider: Sina Schilling MD Status: Dispensed Ordered On: 11/07/1949 Start: 11/07/1949 Dose (Remaining/Total): 100 mg (--/--) Route: oral Frequency: 2 times daily PRN Rate/Duration: -- / -- Timestamps Action Dose Route Other Information 11/15/192025 Given 100 mg oral Performed by: Lissa Hernandez RN Scanned Package: 3724-8790-56 sodium chloride 0.9% bolus 1,000 mL [[id number]] Ordering Provider: Sina Schilling MD Status: Completed [...] Performed by: Holly Caba RN Scanned Package: 8353-1020-45 amLODIPine (NORVASC) tablet 10 mg [[id number]] Ordering Provider: Zack Johnson NP Status: Dispensed Ordered On: 11/07/197 Start: 11/07/19 09 Dose (Remaining/Total): 10 mg (--/--) Route: oral Frequency: Daily Rate/Duration: -- / -- Timestamps Action Dose Route Other Information 11/19/1925 Given 10 mg oral Performed by: Brenda Arita RN Scanned Package: 0033-0412-99 atorvastatin (LIPITOR) tablet 40 mg [[id number]] Ordering Provider: Zack Johnson NP Status: Dispensed Ordered On: 11/07/19 0027 Start: 11/07/19 2100 Dose (Remaining/Total): 40 mg (--/--) Route: oral Frequency: Nightly Rate/Duration: -- / -- Timestamps Action Dose Route Other Information 11/18/191938 Given 40 mg oral Performed by: Reza Barahona RN Scanned Package: 6777-6255-12 aspirin tablet 325 mg [[id number]] Ordering Provider: Zack Johnson NP Status: Dispensed Ordered On: 11/07/1949 Start: 11/07/19 09 Dose (Remaining/Total): 325 mg (--/--) Route: oral Frequency: Daily Rate/Duration: -- / -- Timestamps Action Dose Route Other Information 11/19/19824 Given 325 mg oral Performed by: Brenda Arita RN Scanned Package: 11712-137-36 chlorthalidone tablet 25 mg [[id number]] Ordering Provider: Zack Johnson NP Status: Dispensed Ordered On: 11/07/1949 Start: 11/07/19 0900 Dose (Remaining/Total): 25 mg (--/--) Route: oral Frequency: Daily Rate/Duration: -- / -- Timestamps Action Dose Route Other Information 11/19/19824 Given 25 mg oral Performed by: Brenda Arita RN Scanned Package: 45582-818-[address] (PROTONIX) extended release tablet 40 mg [[id number]] Ordering Provider: Zack Johnson NP Status: Dispensed Ordered On: 11/07/1949 Start: 11/07/19 0900 Dose (Remaining/Total): 40 mg (--/--) Route: oral Frequency: Daily Rate/Duration: -- / -- Admin Instructions: Do not crush, chew, cut, dissolve, open or otherwise manipulate tablet/capsule. Timestamps Action Dose Route Other Information 11/19/19824 Given 40 mg oral Performed by: Brenda Arita RN Scanned Package: 15942-190-38 polyethylene glycol (MIRALAX) packet 17 g [[id number]] Ordering Provider: Zack Johnson NP Status: Dispensed Ordered On: 11/07/1949 Start: 11/07/19899 Dose (Remaining/Total): 17 g (--/--) Route: oral Frequency: Daily Rate/Duration: -- / -- Timestamps Action Dose Route Other Information 11/19/19824 Given 17 g oral Performed by: Brenda Arita RN Scanned Package: 6980-6366-47 levothyroxine (SYNTHROID) tablet 50 mcg [[id number]] Ordering Provider: Zack Johnson NP Status: Dispensed [...] Performed by: Reza Barahona RN Scanned Package: 66991-815-05 gabapentin (NEURONTIN) capsule 300 mg [[id number]] Ordering Provider: Zack Johnson NP Status: Dispensed Ordered On: [birth year]/07/1949 Start: 11/07/19899 Dose (Remaining/Total): 300 mg (--/--) Route: oral Frequency: 3 times daily Rate/Duration: -- / -- Timestamps Action Dose Route Other Information 11/19/19824 Given 300 mg oral Performed by: Brenda Arita RN Scanned Package: 9174-2309-75 vancomycin (VANCOCIN) 1,750 mg in sodium chloride 0.9% 500 mL IVPB [[id number]] Ordering Provider: Zack Johnson NP Status: Completed [...] Casas RN hydrALAZINE (APRESOLINE) tablet 25 mg [[id number]] Ordering Provider: Zack Johnson NP Status: Completed (Past End Date/Time) Ordered On: [birth year]07/1952 Starts/Ends: 11/07/19129 - 11/07/19 020 Dose (Remaining/Total): 25 mg (01) Route: oral Frequency: Once Rate/Duration: -- / -- Timestamps Action Dose Route Other Information 11/07/19 020 Given 25 mg oral Performed by: Ludmila Casas RN sodium chloride 0.9% IVPB 0-250 mL [[id number]] Ordering Provider: Reji Whittaker MD Status: Verified (Past End Date/Time) Ordered On: 11/07/191749 Starts/Ends: 11/07/191829 - 11/08/191829 Dose (Remaining/Total): 0-250 mL (03/13) Route: intravenous Frequency: Once Rate/Duration: -- / -- Admin Instructions: Prime blood tubing and administer amount needed to clear line (usually 50-100 mL) after transfusion complete. (No admins recorded for this medication) sodium chloride 0.9% 0.9% infusion - ADS Override Pull [[id number]] Status: Completed (Past End Date/Time) Ordered On: [...] for use with blood transfusion Scanned Package: 4344-2372-26 enoxaparin (LOVENOX) syringe 40 mg [[id number]] Ordering Provider: Reji Whittaker MD Status: Dispensed [...] Performed by: Reza Barahona RN Scanned Package: 47387-761-94 ioversoL (OPTIRAY 350) syringe syringe 100 mL [[id number]] Ordering Provider: Markel Bourgeois MD Status: Completed [...] Performed by: Ramez Red, RT Scanned Package: 2436-8658-73 insulin lispro (HumaLOG, ADMELOG) injection 7 Units [[id number]] Ordering Provider: Reji Whittaker MD Status: Completed (Past End Date/Time) Ordered On: 11/09/19 1220 Starts/Ends: 11/09/19 1300 - 11/09/19 1223 Dose (Remaining/Total): 7 Units (0/1) Route: subcutaneous Frequency: Once Rate/Duration: -- / -- Timestamps Action Dose Route / Site Other Information 11/09/19 1223 Given 7 Units subcutaneous Right Lower Abdomen Performed by: Lety Olguin RN Scanned Package: 5767-4361-07 acetaminophen (TYLENOL) tablet 650 mg [[id number]] Ordering Provider: Reji Whittaker MD Status: Dispensed Ordered On: 11/09/191840 Start: 11/09/191840 Dose (Remaining/Total): 650 mg (--/--) Route: oral Frequency: Every 6 hours PRN Rate/Duration: -- / -- Timestamps Action Dose Route Other Information 11/18/19 2337 Given 650 mg oral Performed by: Reza Barahona RN dextrose oral liquid liquid 15 g [[id number]] Ordering Provider: Reji Whittaker MD Status: Verified [...] medication) dextrose (D10W) 10% bolus 250 mL [[id number]] Ordering Provider: Reji Whittaker MD Status: Verified Ordered On: 11/10/19940 Start: 11/10/19935 Dose (Remaining/Total): 250 mL (--/--) Route: intravenous Frequency: Every 15 min PRN Rate/Duration: 1,000 mL/hr / 15 Minutes Admin Instructions: After treatment for hypoglycemia, recheck BG followed by treatment every 15 minutes until the BG is greater than 100 mg/dL. Then check BG 1 hour post treatment. If BG is less [id number] mg/dL, repeat Q15 minute BG checks and treatment. Call MD for each episode of hypoglycemia. (No admins recorded for this medication) glucagon injection 1 mg [[id number]] Ordering Provider: Reji Whittaker MD Status: Verified [...] insulin lispro (HumaLOG, ADMELOG) injection 1-5 Units [[id number]] Ordering Provider: Reji Whittaker MD Status: Verified [...] Performed by: Brenda Arita RN Scanned Package: 3326-4097-46 cloNIDine (CATAPRES) tablet 0.1 mg [[id number]] Ordering Provider: Reji Whittaker MD Status: Dispensed Ordered On: 11/10/191649 Start: 11/10/19 164 Dose (Remaining/Total): 0.1 mg (--/--) Route: oral Frequency: Every 6 hours PRN Rate/Duration: -- / -- Timestamps Action Dose Route Other Information 11/10/191655 Given 0.1 mg oral Performed by: Lety Olguin RN Scanned Package: [id number] cefTRIAXone (ROCEPHIN) 2,000 mg/20 mL in sterile water (premix) 2,000 mg [[id number]] Ordering Provider: Markel Bourgeois MD Status: Dispensed [...] Performed by: Brenda Arita RN Scanned Package: 2099-3006-53, 8703-3158-06 metroNIDAZOLE (FLAGYL) tablet 500 mg [[id number]] Ordering Provider: Markel Bourgeois MD Status: Dispensed Ordered On: 11/12/191421 Start: 11/12/19 1600 Dose (Remaining/Total): 500 mg (--/--) Route: oral Frequency: 3 times daily Rate/Duration: -- / -- Timestamps Action Dose Route Other Information 11/19/19 0825 Given 500 mg oral Performed by: Brenda Arita RN Scanned Package: [id number] insulin lispro (HumaLOG, ADMELOG) injection 10 Units [[id number]] Ordering Provider: Reji Whittaker MD Status: Completed [...] ER (KLOR-CON) extended release tablet 40 mEq [[id number]] Ordering Provider: Nita Potter MD Status: Completed [...] Performed by: Rossana Santiago LPN Scanned Package: 6029-6633-33, 7477-3900-04 insulin glargine (LANTUS) injection 12 Units [[id number]] Ordering Provider: Nita Potter MD Status: Verified Ordered On: 11/17/19 0816 Start: 11/17/19 0900 Dose (Remaining/Total): 12 Units (--/--) Route: subcutaneous Frequency: Every morning Rate/Duration: -- / -- Admin Instructions: Do not mix with other insulins Timestamps Action Dose Route / Site Other Information 11/19/19 0825 Given 12 Units subcutaneous Left Upper Abdomen Performed by: Brenda Arita RN Scanned Package: 1339-6086-98 sodium chloride 0.9% flush 5-10 mL [[id number]] Ordering Provider: CARLOS Alvarado Status: Verified Ordered On: 11/19/19 110 Start: 11/19/19 1400 Dose (Remaining/Total): 5-10 mL (--/--) Route: intra-catheter Frequency: Every 8 hours scheduled Rate/Duration: -- / -- Admin Instructions: Flush volume based on line type, size, and protocol. (No admins recorded for this medication) sodium chloride 0.9% flush 5-10 mL [[id number]] Ordering Provider: CARLOS Alvarado Status: Verified Ordered On: 11/19/19 110 Start: 11/19/19 1102 Dose (Remaining/Total): 5-10 mL (--/--) Route: intra-catheter Frequency: As needed Rate/Duration: -- / -- Admin Instructions: Flush volume based on line type, size, and protocol. (No admins recorded for this medication) lidocaine PF (XYLOCAINE) 10 mg/mL (1 %) preservative free injection 10-20 mg [[id number]] Ordering Provider: Nita Potter MD Status: Dispensed Ordered On: 11/19/191121 Starts/Ends: 11/19/19 1200 - 11/20/19 1200 Dose (Remaining/Total): 1-2 mL (03/13) Route: subcutaneous Frequency: Once Rate/Duration: -- / -- Admin Instructions: Administer to insertion site prior to procedure of local anesthesia. Administervolume needed to infiltrate site. (No admins recorded for this medication) sodium chloride 0.9% flush 5-10 mL [[id number]] Ordering Provider: Nita Potter MD Status: Verified Ordered On: 11/19/191121 Start: 11/19/19 1200 Dose (Remaining/Total): 5-10 mL (--/--) Route: intra-catheter Frequency: Every 12 hours scheduled Rate/Duration: -- / -- Admin Instructions: Flush volume based on line type, size, and protocol. Timestamps Action Dose Route Other Information 11/19/19 1305 Given 10 mL intra-catheter Performed by: Brenda Arita RN Scanned Package: [id number] sodium chloride 0.9% flush 5-20 mL [[id number]] Ordering Provider: Nita Potter MD Status: Verified [...] 11/19/19 07 - 11/20/19 0659 Total Total 6408-6982 0817-5219 3587-4833 Total 2904-8782 5753-6835 6069-8128 Total Intake (ml) 360 0 -- 120 [...] in sodium chloride 0.9% 100 mL IVPB [[id number]] Ordering Provider: Sina Schilling MD Status: Completed [...] Performed by: Holly Caba RN Scanned Package: 7766-6072-24, 0816-7767-42 sodium chloride 0.9% flush 0.5-20 mL [[id number]] Ordering Provider: Sina Schilling MD Status: Verified Ordered On: 11/07/1949 Start: 11/07/19 013 Dose (Remaining/Total): 0.5-20 mL (--/--) Route: intra-catheter Frequency: Every 8 hours scheduled Rate/Duration: -- / -- Admin Instructions: Flush volume based on line type and size. Timestamps Action Dose Route Other Information 11/19/19 0827 Given 10 mL intra-catheter Performed by: Brenda Arita RN Scanned Package: [id number] sodium chloride 0.9% flush 0.5-20 mL [[id number]] Ordering Provider: Sina Schilling MD Status: Verified Ordered On: 11/07/1949 Start: 11/07/1949 Dose (Remaining/Total): 0.5-20 mL (--/--) Route: intra-catheter Frequency: As needed Rate/Duration: -- / -- Admin Instructions: Flush volume based on line type and size. Flush before and after each use. (No admins recorded for this medication) ondansetron ODT (ZOFRAN-ODT) disintegrating tablet 4 mg [[id number]] Ordering Provider: Sina Schilling MD Status: Verified Ordered On: 11/07/1949 Start: 11/07/1949 Dose (Remaining/Total): 4 mg (--/--) Route: oral Frequency: Every 6 hours PRN Rate/Duration: -- / -- (No admins recorded for this medication) ondansetron (ZOFRAN) injection 4 mg [[id number]] Ordering Provider: Sina Schilling MD Status: Verified Ordered On: 11/07/1949 Start: 11/07/1949 Dose (Remaining/Total): 4 mg (--/--) Route: intravenous Frequency: Every 6 hours PRN Rate/Duration: -- / 2 Minutes (No admins recorded for this medication) docusate sodium (COLACE) capsule 100 mg [[id number]] Ordering Provider: Sina Schilling MD Status: Dispensed Ordered On: 11/07/1949 Start: 11/07/1949 Dose (Remaining/Total): 100 mg (--/--) Route: oral Frequency: 2 times daily PRN Rate/Duration: -- / -- Timestamps Action Dose Route Other Information 11/15/192025 Given 100 mg oral Performed by: Lissa Hernandez RN Scanned Package: 1097-0063-68 sodium chloride 0.9% bolus 1,000 mL [[id number]] Ordering Provider: Sina Schilling MD Status: Completed [...] Performed by: Holly Caba RN Scanned Package: 4234-1155-65 amLODIPine (NORVASC) tablet 10 mg [[id number]] Ordering Provider: Zack Johnson NP Status: Dispensed Ordered On: 11/07/197 Start: 11/07/19 0900 Dose (Remaining/Total): 10 mg (--/--) Route: oral Frequency: Daily Rate/Duration: -- / -- Timestamps Action Dose Route Other Information 11/19/19 0825 Given 10 mg oral Performed by: Brenda Arita RN Scanned Package: 2360-7224-15 atorvastatin (LIPITOR) tablet 40 mg [[id number]] Ordering Provider: Zack Johnson NP Status: Dispensed Ordered On: 11/07/197 Start: 11/07/19 2100 Dose (Remaining/Total): 40 mg (--/--) Route: oral Frequency: Nightly Rate/Duration: -- / -- Timestamps Action Dose Route Other Information 11/18/191938 Given 40 mg oral Performed by: Reza Barahona RN Scanned Package: 8325-4906-67 aspirin tablet 325 mg [[id number]] Ordering Provider: Zack Johnson NP Status: Dispensed Ordered On: 11/07/1949 Start: 11/07/19 0900 Dose (Remaining/Total): 325 mg (--/--) Route: oral Frequency: Daily Rate/Duration: -- / -- Timestamps Action Dose Route Other Information 11/19/19 0825 Given 325 mg oral Performed by: Brenda Arita RN Scanned Package: 29407-864-83 chlorthalidone tablet 25 mg [[id number]] Ordering Provider: Zack Johnson NP Status: Dispensed Ordered On: 11/07/1949 Start: 11/07/19899 Dose (Remaining/Total): 25 mg (--/--) Route: oral Frequency: Daily Rate/Duration: -- / -- Timestamps Action Dose Route Other Information 11/19/19824 Given 25 mg oral Performed by: Brenda Arita RN Scanned Package: 06941-022-[address] (PROTONIX) extended release tablet 40 mg [[id number]] Ordering Provider: Zack Johnson NP Status: Dispensed Ordered On: 11/07/1949 Start: 11/07/19899 Dose (Remaining/Total): 40 mg (--/--) Route: oral Frequency: Daily Rate/Duration: -- / -- Admin Instructions: Do not crush, chew, cut, dissolve, open or otherwise manipulate tablet/capsule. Timestamps Action Dose Route Other Information 11/19/19824 Given 40 mg oral Performed by: Brenda Arita RN Scanned Package: 29947-346-24 polyethylene glycol (MIRALAX) packet 17 g [[id number]] Ordering Provider: Zack Johnson NP Status: Dispensed Ordered On: 11/07/1949 Start: 11/07/19899 Dose (Remaining/Total): 17 g (--/--) Route: oral Frequency: Daily Rate/Duration: -- / -- Timestamps Action Dose Route Other Information 11/19/19824 Given 17 g oral Performed by: Brenda Arita RN Scanned Package: 2609-5526-75 levothyroxine (SYNTHROID) tablet 50 mcg [[id number]] Ordering Provider: Zack Johnson NP Status: Dispensed [...] Performed by: Reza Barahona RN Scanned Package: 50229-000-50 gabapentin (NEURONTIN) capsule 300 mg [[id number]] Ordering Provider: Zack Johnson NP Status: Dispensed Ordered On: 11/07/19 005 Start: 11/07/19 0900 Dose (Remaining/Total): 300 mg (--/--) Route: oral Frequency: 3 times daily Rate/Duration: -- / -- Timestamps Action Dose Route Other Information 11/19/19 0825 Given 300 mg oral Performed by: Brenda Arita RN Scanned Package: 7870-4839-25 vancomycin (VANCOCIN) 1,750 mg in sodium chloride 0.9% 500 mL IVPB [[id number]] Ordering Provider: Zack Johnson NP Status: Completed [...] Casas RN hydrALAZINE (APRESOLINE) tablet 25 mg [[id number]] Ordering Provider: Zack Johnson NP Status: Completed (Past End Date/Time) Ordered On: 11/07/1952 Starts/Ends: 11/07/19 013 - 11/07/19 0200 Dose (Remaining/Total): 25 mg (0/1) Route: oral Frequency: Once Rate/Duration: -- / -- Timestamps Action Dose Route Other Information 11/07/19 020 Given 25 mg oral Performed by: Ludmila Casas RN sodium chloride 0.9% IVPB 0-250 mL [[id number]] Ordering Provider: Reji Whittaker MD Status: Verified [...] 0.9% 0.9% infusion - ADS Override Pull [[id number]] Status: Completed (Past End Date/Time) Ordered On: [...] for use with blood transfusion Scanned Package: 1222-6312-31 enoxaparin (LOVENOX) syringe 40 mg [[id number]] Ordering Provider: Reji Whittaker MD Status: Dispensed [...] Performed by: Reza Barahona RN Scanned Package: 58952-076-98 ioversoL (OPTIRAY 350) syringe syringe 100 mL [[id number]] Ordering Provider: Markel Bourgeois MD Status: Completed [...] Performed by: Ramez Red RT Scanned Package: 1951-9072-82 insulin lispro (HumaLOG, ADMELOG) injection 7 Units [[id number]] Ordering Provider: Reji Whittaker MD Status: Completed (Past End Date/Time) Ordered On: 11/09/191219 Starts/Ends: 11/09/19 1300 - 11/09/19 1223 Dose (Remaining/Total): 7 Units (0/1) Route: subcutaneous Frequency: Once Rate/Duration: -- / -- Timestamps Action Dose Route / Site Other Information 11/09/19 122 Given 7 Units subcutaneous Right Lower Abdomen Performed by: Lety Olguin RN Scanned Package: 1108-5639-77 acetaminophen (TYLENOL) tablet 650 mg [[id number]] Ordering Provider: Reji Whittaker MD Status: Dispensed Ordered On: 11/09/191840 Start: 11/09/19 184 Dose (Remaining/Total): 650 mg (--/--) Route: oral Frequency: Every 6 hours PRN Rate/Duration: -- / -- Timestamps Action Dose Route Other Information 11/18/19 2337 Given 650 mg oral Performed by: Reza Barahona RN dextrose oral liquid liquid 15 g [[id number]] Ordering Provider: Reji Whittaker MD Status: Verified [...] medication) dextrose (D10W) 10% bolus 250 mL [[id number]] Ordering Provider: Reji Whittaker MD Status: Verified Ordered On: 11/10/19940 Start: 11/10/19935 Dose (Remaining/Total): 250 mL (--/--) Route: intravenous Frequency: Every 15 min PRN Rate/Duration: 1,000 mL/hr / 15 Minutes Admin Instructions: After treatment for hypoglycemia, recheck BG followed by treatment every 15 minutes until the BG is greater than 100 mg/dL. Then check BG 1 hour post treatment. If BG is less tegl435 mg/dL, repeat Q15 minute BG checks and treatment. Call MD for each episode of hypoglycemia. (No admins recorded for this medication) glucagon injection 1 mg [[id number]] Ordering Provider: Reji Whittaker MD Status: Verified [...] insulin lispro (HumaLOG, ADMELOG) injection 1-5 Units [[id number]] Ordering Provider: Reji Whittaker MD Status: Verified [...] Performed by: Brenda Arita RN Scanned Package: 0095-5000-99 cloNIDine (CATAPRES) tablet 0.1 mg [[id number]] Ordering Provider: Reji Whittaker MD Status: Dispensed Ordered On: 11/10/191649 Start: 11/10/19 164 Dose (Remaining/Total): 0.1 mg (--/--) Route: oral Frequency: Every 6 hours PRN Rate/Duration: -- / -- Timestamps Action Dose Route Other Information 11/10/191655 Given 0.1 mg oral Performed by: Lety Olguin RN Scanned Package: 8719-1102-12 cefTRIAXone (ROCEPHIN) 2,000 mg/20 mL in sterile water (premix) 2,000 mg [[id number]] Ordering Provider: Markel Bourgeois MD Status: Dispensed [...] Performed by: Brenda Arita RN Scanned Package: 0294-0134-39, 5365-7359-64 metroNIDAZOLE (FLAGYL) tablet 500 mg [[id number]] Ordering Provider: Markel Bourgeois MD Status: Dispensed Ordered On: 11/12/191421 Start: 11/12/19 1600 Dose (Remaining/Total): 500 mg (--/--) Route: oral Frequency: 3 times daily Rate/Duration: -- / -- Timestamps Action Dose Route Other Information 11/19/19 0825 Given 500 mg oral Performed by: Brenda Arita RN Scanned Package: 13345-775-38 insulin lispro (HumaLOG, ADMELOG) injection 10 Units [[id number]] Ordering Provider: Reji Whittaker MD Status: Completed (Past End Date/Time) Ordered On: 11/14/19 1241 Starts/Ends: 11/14/19 1315 - 11/14/19 131 Dose (Remaining/Total): 10 Units (0/1) Route: subcutaneous Frequency: Once Rate/Duration: -- / -- Timestamps Action Dose Route / Site Other Information 11/14/191316 Given 10 Units subcutaneous Left Upper Arm Performed by: Brenda Arita RN potassium chloride ER (KLOR-CON) extended release tablet 40 mEq [[id number]] Ordering Provider: Nita Potter MD Status: Completed [...] Performed by: Rossana Santiago LPN Scanned Package: 8974-2081-28, 5627-4143-77 insulin glargine (LANTUS) injection 12 Units [[id number]] Ordering Provider: Nita Potter MD Status: Verified Ordered On: 11/17/19 0816 Start: 11/17/19 0900 Dose (Remaining/Total): 12 Units (--/--) Route: subcutaneous Frequency: Every morning Rate/Duration: -- / -- Admin Instructions: Do not mix with other insulins Timestamps Action Dose Route / Site Other Information 11/19/19 08 Given 12 Units subcutaneous Left Upper Abdomen Performed by: Brenda Arita RN Scanned Package: 1880-5100-94 sodium chloride 0.9% flush 5-10 mL [[id number]] Ordering Provider: CARLOS Alvarado Status: Verified Ordered On: 11/19/191102 Start: 11/19/19 1400 Dose (Remaining/Total): 5-10 mL (--/--) Route: intra-catheter Frequency: Every 8 hours scheduled Rate/Duration: -- / -- Admin Instructions: Flush volume based on line type, size, and protocol. (No admins recorded for this medication) sodium chloride 0.9% flush 5-10 mL [[id number]] Ordering Provider: CARLOS Alvarado Status: Verified Ordered On: 11/19/191102 Start: 11/19/19 110 Dose (Remaining/Total): 5-10 mL (--/--) Route: intra-catheter Frequency: As needed Rate/Duration: -- / -- Admin Instructions: Flush volume based on line type, size, and protocol. (No admins recorded for this medication) lidocaine PF (XYLOCAINE) 10 mg/mL (1 %) preservative free injection 10-20 mg [[id number]] Ordering Provider: Nita Potter MD Status: Dispensed Ordered On: 11/19/191121 Starts/Ends: 11/19/191199 - 11/20/19 1200 Dose (Remaining/Total): 1-2 mL (03/13) Route: subcutaneous Frequency: Once Rate/Duration: -- / -- Admin Instructions: Administer to insertion site prior to procedure of local anesthesia. Administervolume needed to infiltrate site. (No admins recorded for this medication) sodium chloride 0.9% flush 5-10 mL [[id number]] Ordering Provider: Nita Potter MD Status: Verified Ordered On: 11/19/191121 Start: 11/19/19 1200 Dose (Remaining/Total): 5-10 mL (--/--) Route: intra-catheter Frequency: Every 12 hours scheduled Rate/Duration: -- / -- Admin Instructions: Flush volume based on line type, size, and protocol. Timestamps Action Dose Route Other Information 11/19/19 1305 Given 10 mL intra-catheter Performed by: Brenda Arita RN Scanned Package: [id number] sodium chloride 0.9% flush 5-20 mL [[id number]] Ordering Provider: Nita Potter MD Status: Verified [...] 11/19/19 0700 - 11/20/19 0659 Total Total 3902-0806 1311-9330 0260-7784 Total 1263-0750 9709-3669 3425-5598 Total Intake (ml) 360 0 -- 120 [...] Francis MSW - 11/15/2019 3:20 PM CDT [facility] received phone call from pt's daughter, Ailyn [...] any foot wounds prior to going to care home. While discussing discharge planning with pt's daughter, pt's daughter phone disconnected. PECAN HULLER called pt's daughter, Ailyn back. Pt's daughter phone went to . PECAN HULLER left a message. PECAN HULLER will continue to work on discharge planning. * Plan of Care - Erwin Francis MSW - 11/15/2019 10:58 AM CDT [facility] returned pt's son phone call today. Pt's son stating that his sister iAlyn will like to take pt home at discharge. PECAN HULLER advised pt's son that pt needs 24 hour care. Pt's son stated that pt has noDME at the house and will need DME if pt return home with family. Pt's son stated that Ailyn will call [facility]ECAN HULLER to discuss furthermore. * Plan of Care [...] in sodium chloride 0.9% 100 mL IVPB [[id number]] Ordering Provider: Sina Schilling MD Status: Completed [...] Performed by: Holly Caba RN Scanned Package: 0669-0682-18, 5608-2096-33 sodium chloride 0.9% flush 0.5-20 mL [[id number]] Ordering Provider: Sina Schilling MD Status: Verified Ordered On: 11/07/1949 Start: 11/07/19129 Dose (Remaining/Total): 0.5-20 mL (--/--) Route: intra-catheter Frequency: Every 8 hours scheduled Rate/Duration: -- / -- Admin Instructions: Flush volume based on line type and size. Timestamps Action Dose Route Other Information 11/14/19 0641 Given 10 mL intra-catheter Performed by: Farrah Cohen RN Scanned Package: [id number] sodium chloride 0.9% flush 0.5-20 mL [[id number]] Ordering Provider: Sina Schilling MD Status: Verified Ordered On: 11/07/1949 Start: 11/07/1949 Dose (Remaining/Total): 0.5-20 mL (--/--) Route: intra-catheter Frequency: As needed Rate/Duration: -- / -- Admin Instructions: Flush volume based on line type and size. Flush before and after each use. (No admins recorded for this medication) ondansetron ODT (ZOFRAN-ODT) disintegrating tablet 4 mg [[id number]] Ordering Provider: Sina Schilling MD Status: Verified Ordered On: 11/07/1949 Start: 11/07/1949 Dose (Remaining/Total): 4 mg (--/--) Route: oral Frequency: Every 6 hours PRN Rate/Duration: -- / -- (No admins recorded for this medication) ondansetron (ZOFRAN) injection 4 mg [[id number]] Ordering Provider: Sina Schilling MD Status: Verified Ordered On: 11/07/1949 Start: 11/07/1949 Dose (Remaining/Total): 4 mg (--/--) Route: intravenous Frequency: Every 6 hours PRN Rate/Duration: -- / 2 Minutes (No admins recorded for this medication) docusate sodium (COLACE) capsule 100 mg [[id number]] Ordering Provider: Sina Schilling MD Status: Verified Ordered On: 11/07/1949 Start: 08/27/20 0050 Dose (Remaining/Total): 100 mg (--/--) Route: oral Frequency: 2 times daily PRN Rate/Duration: -- / -- (No admins recorded for this medication) sodium chloride 0.9% bolus 1,000 mL [[id number]] Ordering Provider: Sina Schilling MD Status: Completed [...] Performed by: Holly Caba RN Scanned Package: 1718-5544-06 amLODIPine (NORVASC) tablet 10 mg [[id number]] Ordering Provider: Zack Johnson NP Status: Dispensed Ordered On: 11/07/1926 Start: 11/07/19 0900 Dose (Remaining/Total): 10 mg (--/--) Route: oral Frequency: Daily Rate/Duration: -- / -- Timestamps Action Dose Route Other Information 11/13/19 0756 Given 10 mg oral Performed by: Khalif Ricks RN Scanned Package: 0220-9093-30 atorvastatin (LIPITOR) tablet 40 mg [[id number]] Ordering Provider: Zack Johnson NP Status: Dispensed Ordered On: 11/07/1926 Start: 11/07/19 2100 Dose (Remaining/Total): 40 mg (--/--) Route: oral Frequency: Nightly Rate/Duration: -- / -- Timestamps Action Dose Route Other Information 11/13/192128 Given 40 mg oral Performed by: Farrah Cohen RN Scanned Package: 8508-7248-44 insulin glargine (LANTUS) injection 15 Units [[id number]] Ordering Provider: Zack Johnson NP Status: Verified Ordered On: 11/07/1926 Start: 11/07/19899 Dose (Remaining/Total): 15 Units (--/--) Route: subcutaneous Frequency: Every morning Rate/Duration: -- / -- Admin Instructions: Do not mix with other insulins Timestamps Action Dose Route / Site Other Information 11/13/19757 Given 15 Units subcutaneous Left Lower Abdomen Performed by: Khalif Ricks RN Scanned Package: 2865-5813-93 aspirin tablet 325 mg [[id number]] Ordering Provider: Zack Johnson NP Status: Dispensed Ordered On: 11/07/1949 Start: 11/07/19899 Dose (Remaining/Total): 325 mg (--/--) Route: oral Frequency: Daily Rate/Duration: -- / -- Timestamps Action Dose Route Other Information 11/13/19755 Given 325 mg oral Performed by: Khalif Ricks RN Scanned Package: 92222-578-18 chlorthalidone tablet 25 mg [[id number]] Ordering Provider: Zack Johnson NP Status: Dispensed Ordered On: 11/07/1949 Start: 11/07/19899 Dose (Remaining/Total): 25 mg (--/--) Route: oral Frequency: Daily Rate/Duration: -- / -- Timestamps Action Dose Route Other Information 11/13/19755 Given 25 mg oral Performed by: Khalif Ricks RN Scanned Package: 04445-198-[address] (PROTONIX) extended release tablet 40 mg [[id number]] Ordering Provider: Zack Johnson NP Status: Dispensed Ordered On: 11/07/1949 Start: 11/07/19899 Dose (Remaining/Total): 40 mg (--/--) Route: oral Frequency: Daily Rate/Duration: -- / -- Admin Instructions: Do not crush, chew, cut, dissolve, open or otherwise manipulate tablet/capsule. Timestamps Action Dose Route Other Information 11/13/19755 Given 40 mg oral Performed by: Khalif Ricks RN Scanned Package: 52100-692-27 polyethylene glycol (MIRALAX) packet 17 g [[id number]] Ordering Provider: Zack Johnson NP Status: Dispensed Ordered On: 11/07/1949 Start: 11/07/19899 Dose (Remaining/Total): 17 g (--/--) Route: oral Frequency: Daily Rate/Duration: -- / -- Timestamps Action Dose Route Other Information 11/13/19 0756 Given 17 g oral Performed by: Khalif Ricks RN Scanned Package: 9310-8861-59 levothyroxine (SYNTHROID) tablet 50 mcg [[id number]] Ordering Provider: Zack Johnson NP Status: Dispensed [...] Performed by: Farrah Cohen RN Scanned Package: 83100-396-31 gabapentin (NEURONTIN) capsule 300 mg [[id number]] Ordering Provider: Zack Johnson NP Status: Dispensed Ordered On: 11/07/1949 Start: 11/07/19899 Dose (Remaining/Total): 300 mg (--/--) Route: oral Frequency: 3 times daily Rate/Duration: -- / -- Timestamps Action Dose Route Other Information 11/13/192128 Given 300 mg oral Performed by: Farrah Cohen RN Scanned Package: 6643-1379-42 dextrose oral liquid liquid 15 g [[id number]] Ordering Provider: Zack Johnson NP Status: Verified [...] medication) dextrose (D10W) 10% bolus 250 mL [[id number]] Ordering Provider: Zack Johnson NP Status: Verified Ordered On: 11/07/1949 Start: 11/07/1949 Dose (Remaining/Total): 250 mL (--/--) Route: intravenous Frequency: Every 15 min PRN Rate/Duration: 1,000 mL/hr / 15 Minutes Admin Instructions: After treatment for hypoglycemia, recheck BG followed by treatment every 15 minutes until the BG is greater than 100 mg/dL. Then check BG 1 hour post treatment. If BG is less [id number] mg/dL, repeat Q15 minute BG checks and treatment. Call MD for each episode of hypoglycemia. (No admins recorded for this medication) glucagon injection 1 mg [[id number]] Ordering Provider: Zack Johnson NP Status: Verified [...] in sodium chloride 0.9% 500 mL IVPB [[id number]] Ordering Provider: Zack Johnson NP Status: Completed [...] Casas RN hydrALAZINE (APRESOLINE) tablet 25 mg [[id number]] Ordering Provider: Zack Johnson NP Status: Completed (Past End Date/Time) Ordered On: 11/07/19 0053 Starts/Ends: 11/07/19 0130 - 11/07/19 0200 Dose (Remaining/Total): 25 mg (0/1) Route: oral Frequency: Once Rate/Duration: -- / -- Timestamps Action Dose Route Other Information 11/07/19 020 Given 25 mg oral Performed by: Ludmila Casas RN sodium chloride 0.9% IVPB 0-250 mL [[id number]] Ordering Provider: Reji Whittaker MD Status: Verified [...] 0.9% 0.9% infusion - ADS Override Pull [[id number]] Status: Completed (Past End Date/Time) Ordered On: [...] for use with blood transfusion Scanned Package: [id number] enoxaparin (LOVENOX) syringe 40 mg [[id number]] Ordering Provider: Reji Whittaker MD Status: Dispensed [...] Performed by: Farrah Cohen RN Scanned Package: 19970-148-61 ioversoL (OPTIRAY 350) syringe syringe 100 mL [[id number]] Ordering Provider: Markel Bourgeois MD Status: Completed [...] Performed by: Ramez Red, RT Scanned Package: [id number] insulin lispro (HumaLOG, ADMELOG) injection 7 Units [[id number]] Ordering Provider: Reji Whittaker MD Status: Completed (Past End Date/Time) Ordered On: 11/09/19 1220 Starts/Ends: 11/09/19 1300 - 11/09/19 122 Dose (Remaining/Total): 7 Units (0/1) Route: subcutaneous Frequency: Once Rate/Duration: -- / -- Timestamps Action Dose Route / Site Other Information 11/09/191222 Given 7 Units subcutaneous Right Lower Abdomen Performed by: Lety Olguin RN Scanned Package: 5636-3396-48 acetaminophen (TYLENOL) tablet 650 mg [[id number]] Ordering Provider: Reji Whittaker MD Status: Dispensed Ordered On: 11/09/191840 Start: 11/09/191840 Dose (Remaining/Total): 650 mg (--/--) Route: oral Frequency: Every 6 hours PRN Rate/Duration: -- / -- (No admins recorded for this medication) dextrose oral liquid liquid 15 g [[id number]] Ordering Provider: Reji Whittaker MD Status: Verified [...] medication) dextrose (D10W) 10% bolus 250 mL [[id number]] Ordering Provider: Reji Whittaker MD Status: Verified Ordered On: 11/10/19940 Start: 11/10/19935 Dose (Remaining/Total): 250 mL (--/--) Route: intravenous Frequency: Every 15 min PRN Rate/Duration: 1,000 mL/hr / 15 Minutes Admin Instructions: After treatment for hypoglycemia, recheck BG followed by treatment every 15 minutes until the BG is greater than 100 mg/dL. Then check BG 1 hour post treatment. If BG is less rhek722 mg/dL, repeat Q15 minute BG checks and treatment. Call MD for each episode of hypoglycemia. (No admins recorded for this medication) glucagon injection 1 mg [[id number]] Ordering Provider: Reji Whittaker MD Status: Verified [...] insulin lispro (HumaLOG, ADMELOG) injection 1-5 Units [[id number]] Ordering Provider: Reji Whittaker MD Status: Verified [...] Performed by: Farrah Cohen RN Scanned Package: 8436-6988-72 insulin lispro (HumaLOG, ADMELOG) injection 1-3 Units [[id number]] Ordering Provider: Reji Whittaker MD Status: Verified [...] Performed by: Farrah Cohen RN Scanned Package: 7217-8564-08 cloNIDine (CATAPRES) tablet 0.1 mg [[id number]] Ordering Provider: Reji Whittaker MD Status: Dispensed Ordered On: 11/10/191649 Start: 11/10/19 1648 Dose (Remaining/Total): 0.1 mg (--/--) Route: oral Frequency: Every 6 hours PRN Rate/Duration: -- / -- Timestamps Action Dose Route Other Information 11/10/19 165 Given 0.1 mg oral Performed by: Lety Olguin RN Scanned Package: [id number] cefTRIAXone (ROCEPHIN) 2,000 mg/20 mL in sterile water (premix) 2,000 mg [[id number]] Ordering Provider: Markel Bourgeois MD Status: Dispensed [...] Performed by: Khalif Ricks RN Scanned Package: 6806-1286-14, 7672-9539-39 metroNIDAZOLE (FLAGYL) tablet 500 mg [[id number]] Ordering Provider: Markel Bourgeois MD Status: Dispensed Ordered On: 11/12/191421 Start: 11/12/19 1600 Dose (Remaining/Total): 500 mg (--/--) Route: oral Frequency: 3 times daily Rate/Duration: -- / -- Timestamps Action Dose Route Other Information 11/13/192128 Given 500 mg oral Performed by: Farrah Cohen RN Scanned Package: 61827-969-94 , Wound Info Only Patient Lines/Drains/Airways Status [...] Francis MSW - 11/14/2019 8:42 AM CDT PECAN HULLER sent updates to facility via [facility]. * [...] Francis MSW - 11/12/2019 3:53 PM CDT PECAN HULLER received a call from Katie([phone]) with [facility] today. PECAN HULLER was informed that pt had weekly tele health visit with wound care. Pt was unable to get face to face appt due to COVID-19. Katie said, pt wound got bad so quickly. Last tele health appt prompted ED admission. PECAN HULLER will continue to follow-up. * Plan of Care - Erwin Francis MSW - 11/12/2019 11:25 AM CDT *late entry* PECAN HULLER received call from Katie with [facility] today. [...] in sodium chloride 0.9% 100 mL IVPB [[id number]] Ordering Provider: Sina Schilling MD Status: Completed [...] Performed by: Holly Caba RN Scanned Package: 8469-0121-54, 7469-6501-84 sodium chloride 0.9% flush 0.5-20 mL [[id number]] Ordering Provider: Sina Schilling MD Status: Verified Ordered On: 11/07/1949 Start: 11/07/19129 Dose (Remaining/Total): 0.5-20 mL (--/--) Route: intra-catheter Frequency: Every 8 hours scheduled Rate/Duration: -- / -- Admin Instructions: Flush volume based on line type and size. Timestamps Action Dose Route Other Information 11/11/19 1314 Given 10 mL intra-catheter Performed by: Rossana Santiago LPN sodium chloride 0.9% flush 0.5-20 mL [[id number]] Ordering Provider: Sina Schilling MD Status: Verified Ordered On: 11/07/1949 Start: 11/07/1949 Dose (Remaining/Total): 0.5-20 mL (--/--) Route: intra-catheter Frequency: As needed Rate/Duration: -- / -- Admin Instructions: Flush volume based on line type and size. Flush before and after each use. (No admins recorded for this medication) ondansetron ODT (ZOFRAN-ODT) disintegrating tablet 4 mg [[id number]] Ordering Provider: Sina Schilling MD Status: Verified Ordered On: 11/07/1949 Start: 11/07/1949 Dose (Remaining/Total): 4 mg (--/--) Route: oral Frequency: Every 6 hours PRN Rate/Duration: -- / -- (No admins recorded for this medication) ondansetron (ZOFRAN) injection 4 mg [[id number]] Ordering Provider: Sina Schilling MD Status: Verified Ordered On: 11/07/1949 Start: 11/07/1949 Dose (Remaining/Total): 4 mg (--/--) Route: intravenous Frequency: Every 6 hours PRN Rate/Duration: -- / 2 Minutes (No admins recorded for this medication) docusate sodium (COLACE) capsule 100 mg [[id number]] Ordering Provider: Sina Schilling MD Status: Verified Ordered On: 11/07/1949 Start: 11/07/1949 Dose (Remaining/Total): 100 mg (--/--) Route: oral Frequency: 2 times daily PRN Rate/Duration: -- / -- (No admins recorded for this medication) sodium chloride 0.9% bolus 1,000 mL [[id number]] Ordering Provider: Sina Schilling MD Status: Completed [...] Performed by: Holly Caba RN Scanned Package: [id number] amLODIPine (NORVASC) tablet 10 mg [[id number]] Ordering Provider: Zack Johnson NP Status: Dispensed Ordered On: 11/07/1926 Start: 11/07/19 0900 Dose (Remaining/Total): 10 mg (--/--) Route: oral Frequency: Daily Rate/Duration: -- / -- Timestamps Action Dose Route Other Information 11/11/19 0841 Given 10 mg oral Performed by: Rossana Santiago LPN Scanned Package: 8617-3923-15 atorvastatin (LIPITOR) tablet 40 mg [[id number]] Ordering Provider: Zack Johnson NP Status: Dispensed Ordered On: 11/07/1926 Start: 11/07/19 2100 Dose (Remaining/Total): 40 mg (--/--) Route: oral Frequency: Nightly Rate/Duration: -- / -- Timestamps Action Dose Route Other Information 11/10/192141 Given 40 mg oral Performed by: Farrah Cohen RN Scanned Package: 8699-6062-80 insulin glargine (LANTUS) injection 15 Units [[id number]] Ordering Provider: Zack Johnson NP Status: Verified Ordered On: 11/07/1926 Start: 11/07/19 0900 Dose (Remaining/Total): 15 Units (--/--) Route: subcutaneous Frequency: Every morning Rate/Duration: -- / -- Admin Instructions: Do not mix with other insulins Timestamps Action Dose Route / Site Other Information 11/11/19 0841 Given 15 Units subcutaneous Right Upper Arm Performed by: Rossana Santiago LPN Scanned Package: 0596-1555-27 aspirin tablet 325 mg [[id number]] Ordering Provider: Zack Johnson NP Status: Dispensed Ordered On: 11/07/19 0050 Start: 11/07/19 0900 Dose (Remaining/Total): 325 mg (--/--) Route: oral Frequency: Daily Rate/Duration: -- / -- Timestamps Action Dose Route Other Information 11/11/19 0841 Given 325 mg oral Performed by: Rossana Santiago LPN Scanned Package: 11810-343-76 chlorthalidone tablet 25 mg [[id number]] Ordering Provider: Zack Johnson NP Status: Dispensed Ordered On: 11/07/1949 Start: Dose (Remaining/Total): 25 mg (--/--) Route: oral Frequency: Daily Rate/Duration: -- / -- Timestamps Action Dose Route Other Information 11/11/1941 Given 25 mg oral Performed by: Rossana Santiago LPN Scanned Package: [id number] (PROTONIX) extended release tablet 40 mg [[id number]] Ordering Provider: Zack Johnson NP Status: Dispensed Ordered On: 11/07/1949 Start: 11/07/19899 Dose (Remaining/Total): 40 mg (--/--) Route: oral Frequency: Daily Rate/Duration: -- / -- Admin Instructions: Do not crush, chew, cut, dissolve, open or otherwise manipulate tablet/capsule. Timestamps Action Dose Route Other Information 11/11/19 0841 Given 40 mg oral Performed by: Rossana Santiago LPN Scanned Package: 35382-176-79 polyethylene glycol (MIRALAX) packet 17 g [[id number]] Ordering Provider: Zack Johnson NP Status: Dispensed Ordered On: 11/07/1949 Start: Dose (Remaining/Total): 17 g (--/--) Route: oral Frequency: Daily Rate/Duration: -- / -- Timestamps Action Dose Route Other Information 11/11/1941 Given 17 g oral Performed by: Rossana Santiago LPN Scanned Package: 6178-6208-86 levothyroxine (SYNTHROID) tablet 50 mcg [[id number]] Ordering Provider: Zack Johnson NP Status: Dispensed [...] Performed by: Farrah Cohen RN Scanned Package: 39035-748-68 gabapentin (NEURONTIN) capsule 300 mg [[id number]] Ordering Provider: Zack Johnson NP Status: Dispensed Ordered On: 11/07/1949 Start: 11/07/19899 Dose (Remaining/Total): 300 mg (--/--) Route: oral Frequency: 3 times daily Rate/Duration: -- / -- Timestamps Action Dose Route Other Information 11/11/19 1513 Given 300 mg oral Performed by: Rossana Santiago LPN Scanned Package: 8192-6934-31 dextrose oral liquid liquid 15 g [[id number]] Ordering Provider: Zack Johnson NP Status: Verified [...] medication) dextrose (D10W) 10% bolus 250 mL [[id number]] Ordering Provider: Zack Johnson NP Status: Verified Ordered On: 11/07/1949 Start: 11/07/1949 Dose (Remaining/Total): 250 mL (--/--) Route: intravenous Frequency: Every 15 min PRN Rate/Duration: 1,000 mL/hr / 15 Minutes Admin Instructions: After treatment for hypoglycemia, recheck BG followed by treatment every 15 minutes until the BG is greater than 100 mg/dL. Then check BG 1 hour post treatment. If BG is less wrcr982 mg/dL, repeat Q15 minute BG checks and treatment. Call MD for each episode of hypoglycemia. (No admins recorded for this medication) glucagon injection 1 mg [[id number]] Ordering Provider: Zack Johnson NP Status: Verified [...] mL in dextrose 5% (premix) 1,000 mg [[id number]] Ordering Provider: Zack Johnson NP Status: Dispensed [...] Performed by: Farrah Cohen RN Scanned Package: [id number] vancomycin (VANCOCIN) 1,750 mg in sodium chloride 0.9% 500 mL IVPB [[id number]] Ordering Provider: Zack Johnson NP Status: Completed (Past End Date/Time) Ordered On: 11/07/1949 Starts/Ends: 11/07/19 0130 - 11/07/19 0526 Dose (Remaining/Total): 1,750 mg (0/1) Route: intravenous Frequency: Once Rate/Duration: 258.8 mL/hr / 120 Minutes Timestamps Action Dose / Rate / Duration Route Other Information 11/07/19 0326 New Bag 1,750 mg 258.8 mL/hr 120 Minutes intravenous Performed by: Ludmila Csaas RN hydrALAZINE (APRESOLINE) tablet 25 mg [[id number]] Ordering Provider: Zack Johnson NP Status: Completed (Past End Date/Time) Ordered On: 11/07/19 0053 Starts/Ends: 11/07/19 0130 - 11/07/19 0200 Dose (Remaining/Total): 25 mg (0/1) Route: oral Frequency: Once Rate/Duration: -- / -- Timestamps Action Dose Route Other Information 11/07/19 020 Given 25 mg oral Performed by: Ludmila Casas RN sodium chloride 0.9% IVPB 0-250 mL [[id number]] Ordering Provider: Reji Whittaker MD Status: Verified [...] in sodium chloride 0.9% 100 mL IVPB [[id number]] Ordering Provider: Markel Bourgeois MD Status: Dispensed [...] Performed by: Rossana Santiago LPN Scanned Package: 6094-2976-13, 3328-6556-40 sodium chloride 0.9% 0.9% infusion - ADS Override Pull [[id number]] Status: Completed (Past End Date/Time) Ordered On: [...] for use with blood transfusion Scanned Package: 4222-8545-08 enoxaparin (LOVENOX) syringe 40 mg [[id number]] Ordering Provider: Reji Whittaker MD Status: Dispensed [...] Performed by: Farrah Cohen RN Scanned Package: 69355-179-74 ioversoL (OPTIRAY 350) syringe syringe 100 mL [[id number]] Ordering Provider: Markel Bourgeois MD Status: Completed [...] Performed by: Ramez Red, RT Scanned Package: 5819-3459-67 insulin lispro (HumaLOG, ADMELOG) injection 7 Units [[id number]] Ordering Provider: Reji Whittaker MD Status: Completed (Past End Date/Time) Ordered On: 11/09/191219 Starts/Ends: 11/09/19 1300 - 11/09/191222 Dose (Remaining/Total): 7 Units (0/1) Route: subcutaneous Frequency: Once Rate/Duration: -- / -- Timestamps Action Dose Route / Site Other Information 11/09/191222 Given 7 Units subcutaneous Right Lower Abdomen Performed by: Lety Olguin RN Scanned Package: 8749-8402-14 acetaminophen (TYLENOL) tablet 650 mg [[id number]] Ordering Provider: Reji Whittaker MD Status: Dispensed Ordered On: 11/09/191840 Start: 11/09/191840 Dose (Remaining/Total): 650 mg (--/--) Route: oral Frequency: Every 6 hours PRN Rate/Duration: -- / -- (No admins recorded for this medication) dextrose oral liquid liquid 15 g [[id number]] Ordering Provider: Reji Whittaker MD Status: Verified [...] medication) dextrose (D10W) 10% bolus 250 mL [[id number]] Ordering Provider: Reji Whittaker MD Status: Verified Ordered On: 11/10/19940 Start: 11/10/19935 Dose (Remaining/Total): 250 mL (--/--) Route: intravenous Frequency: Every 15 min PRN Rate/Duration: 1,000 mL/hr / 15 Minutes Admin Instructions: After treatment for hypoglycemia, recheck BG followed by treatment every 15 minutes until the BG is greater than 100 mg/dL. Then check BG 1 hour post treatment. If BG is less phxa008 mg/dL, repeat Q15 minute BG checks and treatment. Call MD for each episode of hypoglycemia. (No admins recorded for this medication) glucagon injection 1 mg [[id number]] Ordering Provider: Reji Whittaker MD Status: Verified [...] insulin lispro (HumaLOG, ADMELOG) injection 1-5 Units [[id number]] Ordering Provider: Reji Whittaker MD Status: Verified [...] Performed by: Rossana Santiago LPN Scanned Package: 4342-6922-97 insulin lispro (HumaLOG, ADMELOG) injection 1-3 Units [[id number]] Ordering Provider: Reji Whittaker MD Status: Verified [...] Performed by: Farrah Cohen RN Scanned Package: 9873-9616-36 cloNIDine (CATAPRES) tablet 0.1 mg [[id number]] Ordering Provider: Reji Whittaker MD Status: Dispensed Ordered On: 11/10/19 1650 Start: 11/10/19 1648 Dose (Remaining/Total): 0.1 mg (--/--) Route: oral Frequency: Every 6 hours PRN Rate/Duration: -- / -- Timestamps Action Dose Route Other Information 11/10/19 1656 Given 0.1 mg oral Performed by: Lety Olguin RN Scanned Package: [id number] , Wound Info Only Patient Lines/Drains/Airways Status [...] 11/11/2019 7:47 AM CDT Pt transferred to [facility]. Report given to CESAR Lenz. SW following for discharge planning. EVE Cherry-RN [facility] [phone] * Plan of Care - Joselin Heck [...] Summary: Pt resting in bed. Vitals WDL. [place] foam applied to sacral wound and bilateral [...] - DEVICE Final Result Performing Organization Address [facility] Co de Phone Number ASHLEIGH [address] [address] [facility] [place], [place] [id number] * POCT glucose (11/20/2019 5:14 PM CDT) Glucose, POC 187 70 - 199 mg/dL [facility] Blood specimen (specimen) 11/20/2019 5:14 PM CDT 11/20/2019 5:14 PM CDT Reji Whittaker MD LAB POCT ORDERABLES - DEVICE Final Result Performing Organization Address [facility] Co de Phone Number ASHLEIGH [address] [address] [facility] [place] [address] * (ABNORMAL) POCT glucose (11/20/2019 12:24 PM CDT) Glucose, POC 362(H) 70 - 199 mg/dL [facility] Blood specimen (specimen) 11/20/2019 12:24 PM CDT 11/20/2019 12:24 PM CDT Reji Whittaker MD LAB POCT ORDERABLES - DEVICE Final Result Performing Organization Address City/[facility]/ZIP Co de Phone Number ASHLEIGH [address] [address] [facility] [place] [address] * (ABNORMAL) POCT glucose (11/20/2019 12:22 PM CDT) Glucose, POC 385(H) 70 - 199 mg/dL [facility] Blood specimen (specimen) 11/20/2019 12:22 PM CDT 11/20/2019 12:22 PM CDT Reji Whittaker MD LAB POCT ORDERABLES - DEVICE Final Result Performing Organization Address [facility] Co de Phone Number [facility] [address] [address] [facility] [place] [address] * POCT glucose (11/20/2019 6:55 AM CDT) Glucose, POC 170 70 - 199 mg/dL [facility] Blood specimen (specimen) 11/20/2019 6:55 AM CDT 11/20/2019 6:55 AM CDT Reji Whittaker MD LAB POCT ORDERABLES - DEVICE Final Result Performing Organization Address [facility] Co de Phone Number [facility] [address] [address] [facility] [place] [address] * eGFR (11/20/2019 3:58 AM CDT) eGFR 94 mL/min/1.[address] [facility] Comment: Interpretive Data Reference Interval Normal ?>/= 90 mL/min/1.73m2 Mildly decreased* ? 60 - 89 mL/min/1.73m2 Mildly to moderately decreased ?45 - 59 mL/min/1.73m2 Moderately to severely decreased ??30 - 44 mL/min/1.73m2 Severely decreased ?15 - 29 mL/min/1.73m2 Kidney Failure ?< 15 ??mL/min/1.73m2 *Relative to young adult level If -Indian multiply value by 1.16. Estimated glomerular filtration [...] NP LAB BLOOD ORDERABLES Final R esult [facility] [address] [address] [facility] [place] [address] * (ABNORMAL) Comprehensive metabolic panel (11/20/2019 3:58 AM CDT) Sodium 137 135 - 145 mmol/L [facility] Potassium, pl 3.5 3.3 - 4.9 mmol/L [facility] Chloride 95(L) 97 - 110 mmol/L [facility] CH CO2 30 22 - 32 mmol/L [facility] Anion gap 12 2 - 15 mmol/L [facility] BUN 36(H) 8 - 25 mg/dL [facility] Creatinine 0.65 0.60 - 1.10 mg/dL [facility] Glucose 142 70 - 199 mg/dL [facility] Comment: Interpretive Data Fasting glucose [...] CDT 11/20/2019 4:39 AM CDT Zack Johnson VE[employer]ICLE [employer]AIL[employer] LAB BLOOD ORDERABLES Final R esult Performing Organization Address [facility] Co de Phone Number ASHLEIGH GARRETT [address] [address] [facility] [place] [address] * POCT glucose (11/20/2019 2:45 AM CDT) Glucose, POC 146 70 - 199 mg/dL [facility] Blood specimen (specimen) 11/20/2019 2:45 AM CDT 11/20/2019 2:45 AM CDT Reji Whittaker MD LAB POCT ORDERABLES - DEVICE Final Result Performing Organization Address [facility] Co de Phone Number ASHLEIGH [address] [address] Department [place] [address] * POCT glucose (11/19/2019 11:52 PM CDT) Glucose, POC 186 70 - 199 mg/dL [facility] Blood specimen (specimen) 11/19/2019 11:52 PM CDT 11/19/2019 11:52 PM CDT Reji Whittaker MD LAB POCT ORDERABLES - DEVICE Final Result Performing Organization Address [facility] Co de Phone Number CERODNN GARRETT [address] [place] [address] * (ABNORMAL) POCT glucose (11/19/2019 4:40 PM CDT) Glucose, POC 278(H) 70 - 199 mg/dL [facility] Blood specimen (specimen) 11/19/2019 4:40 PM CDT 11/19/2019 4:40 PM CDT Reji Whittaker MD LAB POCT ORDERABLES - DEVICE Final Result Performing Organization Address [facility] Co de Phone Number ASHLEIGH [address] [place] [address] * (ABNORMAL) POCT glucose (11/19/2019 12:13 PM CDT) Glucose, POC 285(H) 70 - 199 mg/dL [facility] Blood specimen (specimen) 11/19/2019 12:13 PM CDT 11/19/2019 12:13 PM CDT Reji Whittaker MD LAB POCT ORDERABLES - DEVICE Final Result Performing Organization Address [facility] de Phone Number LESLIEDONN [address] [place] [address] * POCT glucose (11/19/2019 6:14 AM CDT) Glucose, POC 183 70 - 199 mg/dL [facility] Blood specimen (specimen) 11/19/2019 6:14 AM CDT 11/19/2019 6:14 AM CDT Reji Whittaker MD LAB POCT ORDERABLES - DEVICE Final Result Performing Organization Address [facility] Co de Phone Number [facility] [address] [place] [address] * eGFR (11/19/2019 5:20 AM CDT) eGFR 97 mL/min/1.7 3 m2 [facility] Comment: Interpretive Data Reference Interval Normal ?>/= 90 mL/min/1.73m2 Mildly decreased* ? 60 - 89 mL/min/1.73m2 Mildly to moderately decreased ?45 - 59 mL/min/1.73m2 Moderately to severely decreased ??30 - 44 mL/min/1.73m2 Severely decreased ?15 - 29 mL/min/1.73m2 Kidney Failure ?< 15 ??mL/min/1.73m2 *Relative to young adult level If -Indian multiply value by 1.16. Estimated glomerular filtration [...] LAB BLOOD ORDERABLES Final R esult ASHLEIGH [address] [address] [place] [address] * Differential, auto (11/19/2019 5:20 AM CDT) Neutrophil abs 4.7 1.7 - 6.5 K/cumm [facility] Imm gran abs 0.0 0.0 - 0.1 K/cumm [facility] Lymphocyte abs 1.9 0.8 - 3.3 K/cumm [facility] Monocyte abs 0.6 0.2 - 0.8 K/cumm [facility] Eosinophil abs 0.1 0.0 - 0.5 K/cumm [facility] Basophil abs 0.1 0.0 - 0.1 K/cumm [facility] Neutrophil pct 63.6 % [facility] Comment: Interpretive Data Percent cell count reference ranges are not reported, since discordance with absolute values may lead to misinterpretation of CBC data. Current Interpretive Data was last revised on 2017. Imm gran pct 0.5 % [facility] Comment: Interpretive Data Percent cell count reference ranges are not reported, since discordance with absolute values may lead to misinterpretation of CBC data. Current Interpretive Data was last revised on 2017. Lymphocyte pct 25.7 % [facility] Comment: Interpretive Data Percent cell count reference ranges are not reported, since discordance with absolute values may lead to misinterpretation of CBC data. Current Interpretive Data was last revised on 2017. Monocyte pct 7.4 % [facility] Comment: Interpretive Data Percent cell count reference ranges are not reported, since discordance with absolute values may lead to misinterpretation of CBC data. Current Interpretive Data was last revised on 2017. Eosinophil pct 1.6 % [facility] Comment: Interpretive Data Percent cell count reference ranges are not reported, since discordance with absolute values may lead to misinterpretation of CBC data. Current Interpretive Data was last revised on 2017. Basophil pct 1.2 % [facility] Comment: Interpretive Data Percent cell count reference ranges are not reported, since discordance with absolute values may lead to misinterpretation of CBC data. Current Interpretive Data was last revised on 2017. Blood specimen (specimen) 11/19/2019 5:20 AM CDT 11/19/2019 5:43 AM CDT us Reji Whittaker MD LAB BLOOD ORDERABLES Final Result ASHLEIGH GARRETT [address] [address] [place] [address] * (ABNORMAL) Comprehensive metabolic panel (11/19/2019 5:20 [...] BLOOD ORDERABLES Final R esult ASHLEIGH GARRETT [address] [address] [place] [address] * (ABNORMAL) CBC with auto differential (11/19/2019 5:20 AM CDT) Pathologist [facility] WBC 7.4 3.8 - 9.9 K/cumm [facility] Hgb 8.1(L) 11.9 - 15.5 g/dL [facility] Hct 25.7(L) 35.6 - 45.5 % [facility] Plt 494(H) 150 - 400 K/cumm [facility] MPV 9.1 9.1 - 12.3 fL [facility] RBC 2.78(L) 3.90 - 5.20 [...] LAB BLOOD ORDERABLES Final Result ASHLEIGH GERRY [address] [place], [place] [id number] * (ABNORMAL) POCT glucose (11/19/2019 2:08 AM CDT) [facility] Glucose, POC 215(H) 70 - 199 mg/dL [facility] Blood specimen (specimen) 11/19/2019 2:08 AM CDT 11/19/2019 2:08 AM CDT Reji Whittaker MD LAB POCT ORDERABLES - DEVICE Final Result ASHLEIGH GARRETT [address] [facility] [place] [address] * (ABNORMAL) POCT glucose (11/18/2019 4:03 PM CDT) Glucose, POC 216(H) 70 - 199 mg/dL [facility] Blood specimen (specimen) 11/18/2019 4:03 PM CDT 11/18/2019 4:03 PM CDT Reji Whittaker MD LAB POCT ORDERABLES - DEVICE Final Result Performing Organization Address [facility] de Phone Number [facility] [address] [address] [facility] [place] [address] * (ABNORMAL) POCT glucose (11/18/2019 11:24 AM CDT) Glucose, POC 260(H) 70 - 199 mg/dL [facility] Blood specimen (specimen) 11/18/2019 11:24 AM CDT 11/18/2019 11:24 AM CDT Reji Whittaker MD LAB POCT ORDERABLES - DEVICE Final Result Performing Organization Address [facility] de Phone Number [facility] [address] [address] [facility] [place] [address] * POCT glucose (11/18/2019 6:18 AM CDT) Glucose, POC 143 70 - 199 mg/dL [facility] Blood specimen (specimen) 11/18/2019 6:18 AM CDT 11/18/2019 6:18 AM CDT Reji Whittaker MD LAB POCT ORDERABLES - DEVICE Final Result Performing Organization Address [facility] de Phone Number [facility] [address] [address] [facility] [place] [address] * eGFR (11/18/2019 5:10 AM CDT) eGFR 96 mL/min/1.[address] [facility] Comment: Interpretive Data Reference Interval Normal ?>/= 90 mL/min/1.73m2 Mildly decreased* ? 60 - 89 mL/min/1.73m2 Mildly to moderately decreased ?45 - 59 mL/min/1.73m2 Moderately to severely decreased ??30 - 44 mL/min/1.73m2 Severely decreased ?15 - 29 mL/min/1.73m2 Kidney Failure ?< 15 ??mL/min/1.73m2 *Relative to young adult level If -Indian multiply value by 1.16. Estimated glomerular filtration [...] NP LAB BLOOD ORDERABLES Final R esult [facility] [address] [facility] [place] [address] * (ABNORMAL) Comprehensive metabolic panel [...] 11/18/2019 5:19 AM CDT us Zack Johnson VEHICLE DETAILER LAB BLOOD ORDERABLES Final R esult Performing Organization Address City/[facility]/ZIP Co de Phone Number LESLIEDONN GARRETT [address] [place] [address] * POCT glucose (11/18/2019 2:16 AM CDT) [facility] Glucose, POC 184 70 - 199 mg/dL [facility] Blood specimen (specimen) 11/18/2019 2:16 AM CDT 11/18/2019 2:16 AM CDT Reji Whittaker MD LAB POCT ORDERABLES - DEVICE Final Result Performing Organization Address City/[facility]/ZIP Co de Phone Number LESLIEDONN GARRETT [address] [address] [place] [address] * (ABNORMAL) POCT glucose (11/17/2019 7:28 PM CDT) Glucose, POC 291(H) 70 - 199 mg/dL [facility] Blood specimen (specimen) 11/17/2019 7:28 PM CDT 11/17/2019 7:28 PM CDT Reji Whittaker MD LAB POCT ORDERABLES - DEVICE Final Result Performing Organization Address [facility] Co de Phone Number ASHLEIGH GARRETT [address] [address] [facility] [place] [address] * (ABNORMAL) POCT glucose (11/17/2019 4:54 PM CDT) Glucose, POC 301(H) 70 - 199 mg/dL [facility] Blood specimen (specimen) 11/17/2019 4:54 PM CDT 11/17/2019 4:54 PM CDT Nita Potter MD LAB POCT ORDERABLES - DEVICE Fin al Result Performing Organization Address [facility] Co de Phone Number LESLIEDONN GARRETT [address] [address] [facility] [place] [address] * POCT glucose (11/17/2019 11:20 AM CDT) Glucose, POC 165 70 - 199 mg/dL [facility] Blood specimen (specimen) 11/17/2019 11:20 AM CDT 11/17/2019 11:20 AM CDT Nita Potter MD LAB POCT ORDERABLES - DEVICE Fin al Result Performing Organization Address [facility] Co de Phone Number ASHLEIGH GARRETT [address] [address] [facility] [place] [address] * POCT glucose (11/17/2019 6:31 AM CDT) Glucose, POC 105 70 - 199 mg/dL [facility] Blood specimen (specimen) 11/17/2019 6:31 AM CDT 11/17/2019 6:31 AM CDT us Nita Potter MD LAB POCT ORDERABLES - DEVICE Fin al Result Performing Organization Address [facility] de Phone Number ASHLEIGH GARRETT [address] [address] Department [place] [address] * eGFR (11/17/2019 4:37 AM CDT) eGFR 87 mL/min/1.7 3 m2 ASHLEIGH Comment: Interpretive Data Reference Interval Normal ?>/= 90 mL/min/1.73m2 Mildly decreased* ? 60 - 89 mL/min/1.73m2 Mildly to moderately decreased ?45 - 59 mL/min/1.73m2 Moderately to severely decreased ??30 - 44 mL/min/1.73m2 Severely decreased ?15 - 29 mL/min/1.73m2 Kidney Failure ?< 15 ??mL/min/1.73m2 *Relative to young adult level If -Indian multiply value by 1.16. Estimated glomerular filtration [...] ORDERABLES Final R esult Performing Organization Address [facility] Co de Phone Number ASHLEIGH GARRETT [address] [place] [address] * (ABNORMAL) Comprehensive metabolic panel (11/17/2019 4:37 [...] NP LAB BLOOD ORDERABLES Final R esult [facility] [address] [address] [place] [address] * POCT glucose (11/17/2019 4:19 AM CDT) Glucose, POC 114 70 - 199 mg/dL [facility] Blood specimen (specimen) 11/17/2019 4:19 AM CDT 11/17/2019 4:19 AM CDT us Nita Potter MD LAB POCT ORDERABLES - DEVICE Fin al Result Performing Organization Address [facility] de Phone Number ASHLEIGH GARRETT [address] [address] [facility] [place] [address] * POCT glucose (11/17/2019 3:52 AM CDT) Glucose, POC 96 70 - 199 mg/dL [facility] Blood specimen (specimen) 11/17/2019 3:52 AM CDT 11/17/2019 3:52 AM CDT us Nita Potter MD LAB POCT ORDERABLES - DEVICE Fin al Result Performing Organization Address [facility] de Phone Number [facility] [address] [address] [facility] [place] [address] * (ABNORMAL) POCT glucose (11/17/2019 3:23 AM CDT) Glucose, POC 69(L) 70 - 199 mg/dL [facility] Blood specimen (specimen) 11/17/2019 3:23 AM CDT 11/17/2019 3:23 AM CDT us Nita Potter MD LAB POCT ORDERABLES - DEVICE Fin al Result Performing Organization Address [facility] de Phone Number [facility] [address] [address] [facility] [place] [address] * (ABNORMAL) POCT glucose (11/17/2019 2:58 AM CDT) Glucose, POC 68(L) 70 - 199 mg/dL [facility] Blood specimen (specimen) 11/17/2019 2:58 AM CDT 11/17/2019 2:58 AM CDT us Nita Potter MD LAB POCT ORDERABLES - DEVICE Fin al Result Performing Organization Address [facility] de Phone Number ASHLEIGH GARRETT [address] [place] [address] * (ABNORMAL) POCT glucose (11/17/2019 2:57 AM CDT) Glucose, POC 58(L) 70 - 199 mg/dL [facility] Blood specimen (specimen) 11/17/2019 2:57 AM CDT 11/17/2019 2:57 AM CDT us Nita Potter MD LAB POCT ORDERABLES - DEVICE Fin al Result Performing Organization Address [facility] de Phone Number [facility] [address] [place] [address] * POCT glucose (11/16/2019 8:17 PM CDT) Glucose, POC 153 70 - 199 mg/dL [facility] Blood specimen (specimen) 11/16/2019 8:17 PM CDT 11/16/2019 8:17 PM CDT Result Alexandrea Potter MD LAB POCT ORDERABLES - DEVICE Fin al Result Performing Organization Address [facility] de Phone Number ASHLEIGH [address] [place] [address] * (ABNORMAL) POCT glucose (11/16/2019 4:51 PM CDT) Glucose, POC 389(H) 70 - 199 mg/dL [facility] Blood specimen (specimen) 11/16/2019 4:51 PM CDT 11/16/2019 4:51 PM CDT Result Alexandrea Potter MD LAB POCT ORDERABLES - DEVICE Fin al Result Performing Organization Address [facility] de Phone Number [facility] [address] [address] [facility] [place] [address] * POCT glucose (11/16/2019 11:03 AM CDT) Glucose, POC 157 70 - 199 mg/dL [facility] Blood specimen (specimen) 11/16/2019 11:03 AM CDT 11/16/2019 11:03 AM CDT us Nita Potter MD LAB POCT ORDERABLES - DEVICE Fin al Result Performing Organization Address [facility] de Phone Number [facility] [address] [place] [address] * POCT glucose (11/16/2019 6:31 AM CDT) Glucose, POC 173 70 - 199 mg/dL [facility] Blood specimen (specimen) 11/16/2019 6:31 AM CDT 11/16/2019 6:31 AM CDT Reji Whittaker MD LAB POCT ORDERABLES - DEVICE Final Result Performing Organization Address [facility] de Phone Number [facility] [address] [address] [facility] [place] [address] * eGFR (11/16/2019 4:12 AM CDT) eGFR 90 mL/min/1.[address] [facility] Comment: Interpretive Data Reference Interval Normal ?>/= 90 mL/min/1.73m2 Mildly decreased* ? 60 - 89 mL/min/1.73m2 Mildly to moderately decreased ?45 - 59 mL/min/1.73m2 Moderately to severely decreased ??30 - 44 mL/min/1.73m2 Severely decreased ?15 - 29 mL/min/1.73m2 Kidney Failure ?< 15 ??mL/min/1.73m2 *Relative to young adult level If -Indian multiply value by 1.16. Estimated glomerular filtration [...] NP LAB BLOOD ORDERABLES Final R esult [facility] [address] [address] [place] [address] * (ABNORMAL) Comprehensive metabolic panel (11/16/2019 4:12 AM CDT) Sodium 138 135 - 145 mmol/L [facility] Potassium, pl 3.4 3.3 - 4.9 mmol/L [facility] Chloride 95(L) 97 - 110 mmol/L [facility] CO2 32 22 - 32 mmol/L [facility] Anion gap 11 2 - 15 mmol/L [facility] BUN 33(H) 8 - 25 mg/dL [facility] Creatinine 0.71 0.60 - 1.10 mg/dL [facility] Glucose 152 70 - 199 mg/dL [facility] Comment: Interpretive Data Fasting glucose >/= 126 [...] CDT 11/16/2019 4:59 AM CDT Zack Johnson VEHICLE DETAILER LAB BLOOD ORDERABLES Final R esult Performing Organization Address City/[facility] Co de Phone Number ASHLEIGH [address] [address] [place] [address] * POCT glucose (11/16/2019 3:18 AM CDT) Glucose, POC 159 70 - 199 mg/dL [facility] Blood specimen (specimen) 11/16/2019 3:18 AM CDT 11/16/2019 3:18 AM CDT Reji Whittaker MD LAB POCT ORDERABLES - DEVICE Final Result [facility] [address] [address] [place] [address] * (ABNORMAL) POCT glucose (11/15/2019 8:22 PM CDT) Glucose, POC 217(H) 70 - 199 mg/dL [facility] Blood specimen (specimen) 11/15/2019 8:22 PM CDT 11/15/2019 8:22 PM CDT Reji Whittaker MD LAB POCT ORDERABLES - DEVICE Final Result Performing Organization Address [facility] de Phone Number ASHLEIGH GERRY [address] [address] [facility] [place] [address] * POCT glucose (11/15/2019 3:52 PM CDT) Glucose, POC 186 70 - 199 mg/dL [facility] Blood specimen (specimen) 11/15/2019 3:52 PM CDT 11/15/2019 3:52 PM CDT Reji Whittaker MD LAB POCT ORDERABLES - DEVICE Final Result Performing Organization Address [facility] de Phone Number ASHLEIGH GERRY [address] [address] [facility] [place] [address] * (ABNORMAL) POCT glucose (11/15/2019 11:58 AM CDT) Glucose, POC 280(H) 70 - 199 mg/dL [facility] Blood specimen (specimen) 11/15/2019 11:58 AM CDT 11/15/2019 11:58 AM CDT Rjei Whittaker MD LAB POCT ORDERABLES - DEVICE Final Result Performing Organization Address [facility] de Phone Number ASHLEIGH GARRETT [address] [address] [facility] [place] [address] * (ABNORMAL) POCT glucose (11/15/2019 6:31 AM CDT) Glucose, POC 314(H) 70 - 199 mg/dL [facility] Blood specimen (specimen) 11/15/2019 6:31 AM CDT 11/15/2019 6:31 AM CDT Reji Whittaker MD LAB POCT ORDERABLES - DEVICE Final Result Performing Organization Address [facility] de Phone Number ASHLEIGH GARRETT [address] [address] [facility] [place] [address] * eGFR (11/15/2019 4:16 AM CDT) eGFR 95 mL/min/1.7 3 m2 ASHLEIGH Comment: Interpretive Data Reference Interval Normal ?>/= 90 mL/min/1.73m2 Mildly decreased* ? 60 - 89 mL/min/1.73m2 Mildly to moderately decreased ?45 - 59 mL/min/1.73m2 Moderately to severely decreased ??30 - 44 mL/min/1.73m2 Severely decreased ?15 - 29 mL/min/1.73m2 Kidney Failure ?< 15 ??mL/min/1.73m2 *Relative to young adult level If -Indian multiply value by 1.16. Estimated glomerular filtration [...] BLOOD ORDERABLES Final R esult ASHLEIGH GARRETT [address] [address] [place] [address] * (ABNORMAL) Comprehensive metabolic panel (11/15/2019 4:16 AM CDT) Sodium 135 135 - 145 mmol/L [facility] Potassium, pl 3.6 3.3 - [...] AM CDT 11/15/2019 4:46 AM CDT Zack Jonhson NP LAB BLOOD ORDERABLES Final R esult ASHLEIGH [address] [address] [place] [address] * (ABNORMAL) POCT glucose (11/15/2019 2:24 AM CDT) Glucose, POC 278(H) 70 - 199 mg/dL [facility] Blood specimen (specimen) 11/15/2019 2:24 AM CDT 11/15/2019 2:24 AM CDT Reji Whittaker MD LAB POCT ORDERABLES - DEVICE Final Result Performing Organization Address [facility] Co de Phone Number ASHLEIGH [address] [facility] [place] [address] * POCT glucose (11/14/2019 8:49 PM CDT) Glucose, POC 160 70 - 199 mg/dL [facility] Blood specimen (specimen) 11/14/2019 8:49 PM CDT 11/14/2019 8:49 PM CDT Reji Whittaker MD LAB POCT ORDERABLES - DEVICE Final Result Performing Organization Address [facility] de Phone Number ASHLEIGH GARRETT [address] [address] [facility] [place] [address] * (ABNORMAL) POCT glucose (11/14/2019 4:42 PM CDT) Glucose, POC 201(H) 70 - 199 mg/dL [facility] Blood specimen (specimen) 11/14/2019 4:42 PM CDT 11/14/2019 4:42 PM CDT Result [facility] Reji Whittaker MD LAB POCT ORDERABLES - DEVICE Final Result Performing Organization Address City/[facility] Co de Phone Number ASHLEIGH GARRETT [address] [address] [facility] [place] [address] * (ABNORMAL) POCT glucose (11/14/2019 12:03 PM CDT) Glucose, POC 306(H) 70 - 199 mg/dL [facility] Blood specimen (specimen) 11/14/2019 12:03 PM CDT 11/14/2019 12:03 PM CDT Reji Whittaker MD LAB POCT ORDERABLES - DEVICE Final Result Performing Organization Address [facility] Co de Phone Number [facility] [address] [address] [place] [address] * POCT glucose (11/14/2019 6:34 AM CDT) Pathologist [facility] Glucose, POC 154 70 - 199 mg/dL [facility] Blood specimen (specimen) 11/14/2019 6:34 AM CDT 11/14/2019 6:34 AM CDT Reji Whittaker MD LAB POCT ORDERABLES - DEVICE Final Result Performing Organization Address [facility] de Phone Number [facility] [address] [address] [place] [address] * eGFR (11/14/2019 4:08 AM CDT) Pathologist [facility] eGFR 93 mL/min/1.[address] [facility] Comment: Interpretive Data Reference Interval Normal ?>/= 90 mL/min/1.73m2 Mildly decreased* ? 60 - 89 mL/min/1.73m2 Mildly to moderately decreased ?45 - 59 mL/min/1.73m2 Moderately to severely decreased ??30 - 44 mL/min/1.73m2 Severely decreased ?15 - 29 mL/min/1.73m2 Kidney Failure ?< 15 ??mL/min/1.73m2 *Relative to young adult level If -Indian multiply value by 1.16. Estimated glomerular filtration [...] SEN LAB BLOOD ORDERABLES Final R esult [facility] [address] [address] [place] [address] * (ABNORMAL) Comprehensive metabolic panel (11/14/2019 4:08 [...] CDT 11/14/2019 4:38 AM CDT Wendyemery Alex VEHICLE DETAILER LAB BLOOD ORDERABLES Final R esult Performing Organization Address [facility] Co de Phone Number ASHLEIGH [address] [address] [facility] [place] [address] * POCT glucose (11/14/2019 2:13 AM CDT) Glucose, POC 198 70 - 199 mg/dL [facility] Blood specimen (specimen) 11/14/2019 2:13 AM CDT 11/14/2019 2:13 AM CDT Reji Whittaker MD LAB POCT ORDERABLES - DEVICE Final Result Performing Organization Address [facility] de Phone Number ASHLEIGH [address] [address] [facility] [place] [address] * (ABNORMAL) POCT glucose (11/13/2019 8:59 PM CDT) Glucose, POC 250(H) 70 - 199 mg/dL [facility] Blood specimen (specimen) 11/13/2019 8:59 PM CDT 11/13/2019 8:59 PM CDT Reji Whittaker MD LAB POCT ORDERABLES - DEVICE Final Result Performing Organization Address [facility] Co de Phone Number [facility] [address] [address] [facility] [place] [address] * POCT glucose (11/13/2019 5:11 PM CDT) Glucose, POC 167 70 - 199 mg/dL [facility] Blood specimen (specimen) 11/13/2019 5:11 PM CDT 11/13/2019 5:11 PM CDT Lluvia Smith MD LAB POCT ORDERABLES - DEVICE F inal Result Performing Organization Address [facility] de Phone Number [facility] [address] [address] [facility] [place] [address] * POCT glucose (11/13/2019 12:21 PM CDT) Glucose, POC 87 70 - 199 mg/dL [facility] Blood specimen (specimen) 11/13/2019 12:21 PM CDT 11/13/2019 12:21 PM CDT Lluvia Smith MD LAB POCT ORDERABLES - DEVICE F inal Result Performing Organization Address [facility] de Phone Number [facility] [address] [place] [address] * POCT glucose (11/13/2019 6:31 AM CDT) Glucose, POC 156 70 - 199 mg/dL [facility] Blood specimen (specimen) 11/13/2019 6:31 AM CDT 11/13/2019 6:31 AM CDT Reji Whittaker MD LAB POCT ORDERABLES - DEVICE Final Result Performing Organization Address [facility] de Phone Number [facility] [address] [place] [address] * eGFR (11/13/2019 4:24 AM CDT) eGFR 92 mL/min/1.[address] [facility] Comment: Interpretive Data Reference Interval Normal ?>/= 90 mL/min/1.73m2 Mildly decreased* ? 60 - 89 mL/min/1.73m2 Mildly to moderately decreased ?45 - 59 mL/min/1.73m2 Moderately to severely decreased ??30 - 44 mL/min/1.73m2 Severely decreased ?15 - 29 mL/min/1.73m2 Kidney Failure ?< 15 ??mL/min/1.73m2 *Relative to young adult level If -Indian multiply value by 1.16. Estimated glomerular filtration [...] NP LAB BLOOD ORDERABLES Final R esult [facility] [address] [address] [place] [address] * (ABNORMAL) Comprehensive metabolic panel (11/13/2019 4:24 AM CDT) Sodium 137 135 - 145 mmol/L [facility] Potassium, pl 3.7 3.3 - 4.9 mmol/L [facility] Chloride 96(L) 97 - 110 mmol/L [facility] CO2 31 22 - 32 mmol/L [facility] Anion gap 10 2 - 15 mmol/L [facility] BUN 17 8 - 25 mg/dL [facility] Creatinine 0.70 0.60 - 1.10 mg/dL [facility] Glucose 158 70 - 199 mg/dL [facility] [...] BLOOD ORDERABLES Final R esult ASHLEIGH GARRETT [address] [address] [employer] [place], [place] [address] * POCT glucose (11/13/2019 2:50 AM CDT) Glucose, POC 197 70 - 199 mg/dL [facility] Blood specimen (specimen) 11/13/2019 2:50 AM CDT 11/13/2019 2:50 AM CDT Reji Whittaker MD LAB POCT ORDERABLES - DEVICE Final Result [facility] [address] [employer] [place], [place] [address] * (ABNORMAL) POCT glucose (11/12/2019 9:03 PM CDT) Glucose, POC 259(H) 70 - 199 mg/dL [facility] Blood specimen (specimen) 11/12/2019 9:03 PM CDT 11/12/2019 9:03 PM CDT us Reji Whittaker MD LAB POCT ORDERABLES - DEVICE Final Result Performing Organization Address [facility] Co de Phone Number ASHLEIGH GARRETT [address] [address] [facility] [place] [address] * POCT glucose (11/12/2019 4:50 PM CDT) Glucose, POC 144 70 - 199 mg/dL [facility] Blood specimen (specimen) 11/12/2019 4:50 PM CDT 11/12/2019 4:50 PM CDT Reji Whittaker MD LAB POCT ORDERABLES - DEVICE Final Result Performing Organization Address [facility] de Phone Number ASHLEIGH GARRETT [address] [address] [facility] [place] [address] * (ABNORMAL) POCT glucose (11/12/2019 11:23 AM CDT) Glucose, POC 228(H) 70 - 199 mg/dL [facility] Blood specimen (specimen) 11/12/2019 11:23 AM CDT 11/12/2019 11:23 AM CDT Reji Whittaker MD LAB POCT ORDERABLES - DEVICE Final Result Performing Organization Address [facility] Co de Phone Number ASHLEIGH GARRETT [address] [address] [facility] [place] [address] * POCT glucose (11/12/2019 6:30 AM CDT) Glucose, POC 183 70 - 199 mg/dL [facility] Blood specimen (specimen) 11/12/2019 6:30 AM CDT 11/12/2019 6:30 AM CDT Reji Whittaker MD LAB POCT ORDERABLES - DEVICE Final Result Performing Organization Address [facility] Co de Phone Number ASHLEIGH GARRETT [address] [address] [place] [address] * eGFR (11/12/2019 4:26 AM CDT) eGFR 87 mL/min/1.7 3 m2 ASHLEIGH Comment: Interpretive Data Reference Interval Normal ?>/= 90 mL/min/1.73m2 Mildly decreased* ? 60 - 89 mL/min/1.73m2 Mildly to moderately decreased ?45 - 59 mL/min/1.73m2 Moderately to severely decreased ??30 - 44 mL/min/1.73m2 Severely decreased ?15 - 29 mL/min/1.73m2 Kidney Failure ?< 15 ??mL/min/1.73m2 *Relative to young adult level If -Indian multiply value by 1.16. Estimated glomerular filtration [...] ORDERABLES Final R esult Performing Organization Address [facility] Co de Phone Number ASHLEIGH GARRETT [address] Department [place] [address] * (ABNORMAL) Comprehensive metabolic panel (11/12/2019 4:26 [...] BLOOD ORDERABLES Final R esult ASHLEIGH GARRETT [address] [place] [address] * POCT glucose (11/12/2019 2:09 AM CDT) Glucose, POC 170 70 - 199 mg/dL [facility] Blood specimen (specimen) 11/12/2019 2:09 AM CDT 11/12/2019 2:09 AM CDT Reji Whittaker MD LAB POCT ORDERABLES - DEVICE Final Result Performing Organization Address [facility] de Phone Number ASHLEIGH GARRETT [address] [address] [facility] [place] [address] * (ABNORMAL) POCT glucose (11/11/2019 8:43 PM CDT) Glucose, POC 240(H) 70 - 199 mg/dL [facility] Blood specimen (specimen) 11/11/2019 8:43 PM CDT 11/11/2019 8:43 PM CDT Reji Whittaker MD LAB POCT ORDERABLES - DEVICE Final Result Performing Organization Address [facility] de Phone Number LESLIEDONN GARRETT [address] [address] [facility] [place] [address] * (ABNORMAL) POCT glucose (11/11/2019 4:17 PM CDT) Glucose, POC 237(H) 70 - 199 mg/dL [facility] Blood specimen (specimen) 11/11/2019 4:17 PM CDT 11/11/2019 4:17 PM CDT Reji Whittaker MD LAB POCT ORDERABLES - DEVICE Final Result Performing Organization Address [facility] de Phone Number ASHLEIGH GARRETT [address] [address] [facility] [place] [address] * POCT glucose (11/11/2019 11:21 AM CDT) Glucose, POC 170 70 - 199 mg/dL [facility] Blood specimen (specimen) 11/11/2019 11:21 AM CDT 11/11/2019 11:21 AM CDT Reji Whittaker MD LAB POCT ORDERABLES - DEVICE Final Result Performing Organization Address [facility] de Phone Number [facility] [address] [address] [facility] [place] [address] * POCT glucose (11/11/2019 6:59 AM CDT) Glucose, POC 114 70 - 199 mg/dL [facility] Blood specimen (specimen) 11/11/2019 6:59 AM CDT 11/11/2019 6:59 AM CDT Reji Whittaker MD LAB POCT ORDERABLES - DEVICE Final Result Performing Organization Address [facility] Phone Number [facility] [address] [address] [facility] [place] [address] * eGFR (11/11/2019 4:42 AM CDT) eGFR 92 mL/min/1.[address] [facility] Comment: Interpretive Data Reference Interval Normal ?>/= 90 mL/min/1.73m2 Mildly decreased* ? 60 - 89 mL/min/1.73m2 Mildly to moderately decreased ?45 - 59 mL/min/1.73m2 Moderately to severely decreased ??30 - 44 mL/min/1.73m2 Severely decreased ?15 - 29 mL/min/1.73m2 Kidney Failure ?< 15 ??mL/min/1.73m2 *Relative to young adult level If -Indian multiply value by 1.16. Estimated glomerular filtration [...] NP LAB BLOOD ORDERABLES Final R esult [facility] [address] Department [place] [address] * (ABNORMAL) Comprehensive metabolic panel (11/11/2019 4:42 [...] 11/11/2019 5:54 AM CDT us Zack Johnson VEHICLE DETAILER LAB BLOOD ORDERABLES Final R esult Performing Organization Address City/[facility]/ZIP Co de Phone Number ASHLEIGH GARRETT [address] [address] [facility] [place] [address] * POCT glucose (11/11/2019 2:19 AM CDT) Glucose, POC 182 70 - 199 mg/dL [facility] Blood specimen (specimen) 11/11/2019 2:19 AM CDT 11/11/2019 2:19 AM CDT us Reji Whittaker MD LAB POCT ORDERABLES - DEVICE Final Result Performing Organization Address [facility] Co de Phone Number ASHLEIGH GARRETT [address] [address] [facility] [place] [address] * POCT glucose (11/10/2019 9:39 PM CDT) Glucose, POC 176 70 - 199 mg/dL [facility] Blood specimen (specimen) 11/10/2019 9:39 PM CDT 11/10/2019 9:39 PM CDT Reji Whittaker MD LAB POCT ORDERABLES - DEVICE Final Result Performing Organization Address City/[facility] Co de Phone Number ASHLEIGH GARRETT [address] [address] [facility] [place], [place] [id number] * POCT glucose (11/10/2019 4:53 PM CDT) Glucose, POC 193 70 - 199 mg/dL [facility] Blood specimen (specimen) 11/10/2019 4:53 PM CDT 11/10/2019 4:53 PM CDT Reji Whittaker MD LAB POCT ORDERABLES - DEVICE Final Result Performing Organization Address [facility] de Phone Number ASHLEIGH GARRETT [address] [address] [facility] [place] [address] * POCT glucose (11/10/2019 11:56 AM CDT) Glucose, POC 134 70 - 199 mg/dL [facility] Blood specimen (specimen) 11/10/2019 11:56 AM CDT 11/10/2019 11:56 AM CDT Reji Whittaker MD LAB POCT ORDERABLES - DEVICE Final Result Performing Organization Address [facility] de Phone Number [facility] [address] [place] [address] * POCT glucose (11/10/2019 7:16 AM CDT) Glucose, POC 90 70 - 199 mg/dL [facility] Blood specimen (specimen) 11/10/2019 7:16 AM CDT 11/10/2019 7:16 AM CDT Reji Whittaker MD LAB POCT ORDERABLES - DEVICE Final Result Performing Organization Address [facility] de Phone Number ASHLEIGH [address] [address] [facility] [place] [address] * eGFR (11/10/2019 5:34 AM CDT) eGFR 94 mL/min/1.[address] [facility] Comment: Interpretive Data Reference Interval Normal ?>/= 90 mL/min/1.73m2 Mildly decreased* ? 60 - 89 mL/min/1.73m2 Mildly to moderately decreased ?45 - 59 mL/min/1.73m2 Moderately to severely decreased ??30 - 44 mL/min/1.73m2 Severely decreased ?15 - 29 mL/min/1.73m2 Kidney Failure ?< 15 ??mL/min/1.73m2 *Relative to young adult level If -Indian multiply value by 1.16. Estimated glomerular filtration [...] NP LAB BLOOD ORDERABLES Final R esult [facility] [address] Department [place] [address] * (ABNORMAL) Comprehensive metabolic panel (11/10/2019 5:34 AM CDT) Sodium 140 135 - 145 mmol/L [facility] Potassium, pl 3.5 3.3 - 4.9 mmol/L [facility] Chloride 96(L) 97 - 110 mmol/L [facility] CO2 32 22 - 32 mmol/L [facility] Anion gap 12 2 - 15 mmol/L [facility] BUN 20 8 - 25 mg/dL [facility] Creatinine 0.65 0.60 - 1.10 mg/dL [facility] Glucose 63(L) 70 - 199 mg/dL [facility] [...] NP LAB BLOOD ORDERABLES Final R esult [facility] [address] Department [place] [address] * (ABNORMAL) Differential, auto (11/10/2019 [...] on 2017. Imm gran pct 0.5 % [facility] Comment: Interpretive Data Percent cell count reference ranges are not reported, since discordance with absolute values may lead to misinterpretation of CBC data. Current Interpretive Data was last revised on 2017. Lymphocyte pct 11.5 % [facility] Comment: Interpretive Data Percent cell count reference ranges are not reported, since discordance with absolute values may lead to misinterpretation of CBC data. Current Interpretive Data was last revised on 2017. Monocyte pct 5.1 % [facility] Comment: Interpretive Data Percent cell count reference ranges are not reported, since discordance with absolute values may lead to misinterpretation of CBC data. Current Interpretive Data was last revised on 2017. Eosinophil pct 0.7 % [facility] Comment: Interpretive Data Percent cell count reference ranges are not reported, since discordance with absolute values may lead to misinterpretation of CBC data. Current Interpretive Data was last revised on 2017. Basophil pct 0.6 % [facility] Comment: Interpretive Data Percent cell count reference ranges are not reported, since discordance with absolute values may lead to misinterpretation of CBC data. Current Interpretive Data was last revised on 2017. Blood specimen (specimen) 11/10/2019 5:28 AM CDT 11/10/2019 5:34 AM CDT Reji Whittaker MD LAB BLOOD ORDERABLES Final Result [facility] [address] Department [place] [address] * (ABNORMAL) CBC with auto differential (11/10/2019 5:28 AM CDT) WBC 12.4(H) 3.8 - 9.9 K/cumm [facility] Hgb 7.9(L) 11.9 - 15.5 g/dL [facility] Hct 24.5(L) 35.6 - 45.5 % [facility] Plt 365 150 - 400 K/cumm [facility] MPV 8.9(L) 9.1 - 12.[address] [facility] RBC 2.71(L) 3.90 - 5.20 M/cumm [facility] MCV 90.4 81.3 - 96.[address] [facility] MCH 29.2 27.1 - 33.[address] [facility] MCHC 32.2(L) 32.3 - 35.7 g/dL [facility] RDW CV 14.6 11.1 - 14.9 % [facility] RDW SD 48.2(H) 35.7 - 48.[address] [facility] NRBC abs 0.00 0.00 - 0.01 K/cumm [facility] Blood specimen (specimen) 11/10/2019 5:28 AM CDT 11/10/2019 5:34 AM CDT us Reji Whittaker MD LAB BLOOD ORDERABLES Final Result [facility] [address] [address] Department of Laboratories [place] [id number] * Vancomycin, trough Draw trough 30 minutes prior to 4th dose. (11/10/2019 5:28 AM CDT) Vancomycin trough 13.0 10.0 - 20.0 mcg/mL [facility] Comment: Interpretive Data Desired Vancomycin trough levels are 10.0 to 20.0 mcg/mL for combined therapy with aminoglycosides (see following exceptions). Desired trough levels for specific clinical indications: - Urinary tract infections (UTI): ??5.0 mcg/mL - Methicillin Resistant staphylococcal infection: ??10.0 - 15.0 mcg/mL - Central nervous system (LABORATORY CHEMICAL ASSISTANT) infection, endocarditis, ??osteomyelitis, pneumonia: ??With aminoglycoside 10.0 [...] AM CDT 11/10/2019 5:34 AM CDT Narrative [facility] - 11/10/2019 6:08 AM CDT Draw trough 30 minutes prior to 4th dose. Zack Johnson VEHICLE DETAILER LAB BLOOD ORDERABLES Final R esult Performing Organization Address [facility] Co de Phone Number ASHLEIGH GARRETT [address] [address] [facility] [place] [address] * (ABNORMAL) POCT glucose (11/10/2019 2:19 AM CDT) Glucose, POC 264(H) 70 - 199 mg/dL [facility] Blood specimen (specimen) 11/10/2019 2:19 AM CDT 11/10/2019 2:19 AM CDT Reji Whittaker MD LAB POCT ORDERABLES - DEVICE Final Result Performing Organization Address [facility] de Phone Number ASHLEIGH GARRETT [address] [address] [place] [address] * (ABNORMAL) POCT glucose (11/09/2019 8:36 PM CDT) Glucose, POC 359(H) 70 - 199 mg/dL [facility] Blood specimen (specimen) 11/09/2019 8:36 PM CDT 11/09/2019 8:36 PM CDT Reji Whittaker MD LAB POCT ORDERABLES - DEVICE Final Result Performing Organization Address [facility] Co de Phone Number ASHLEIGH GARRETT [address] [address] [facility] [place] [address] * (ABNORMAL) POCT glucose (11/09/2019 6:17 PM CDT) Glucose, POC 297(H) 70 - 199 mg/dL [facility] Blood specimen (specimen) 11/09/2019 6:17 PM CDT 11/09/2019 6:17 PM CDT Reji Whittaker MD LAB POCT ORDERABLES - DEVICE Final Result Performing Organization Address [facility] Co de Phone Number ASHLEIGH [address] [address] [place] [address] * (ABNORMAL) COVID-19 Coronavirus RNA [...] different sarbecovirus. Interpretive Data Testing performed at [facility] Infectious Disease [facility]. The 2019-Novel [...] last revised on 2019. Testing performed by: [facility], [address] [place]., [address] Nasopharyngeal 11/09/2019 6: 15 PM CDT 11/10/2019 2:52 AM CDT Narrative ASHLEIGH - 11/10/2019 3:13 PM CDT Is the patient experiencing any symptoms consistent with COVID (eg. Fever, cough, shortness of breath)?->No What is the reason for testing?->Screening prior to urgent (<12 hr) procedure, surgery, BMT, immunosuppressive therapy Karl Smith Jr., MD LAB MICROBIOLOGY - GENE RAL ORDERABLES Final Result Performing Organization Address [facility] Co de Phone Number ASHLEIGH [address] [address] Department [place] [address] * (ABNORMAL) Aerobic and anaerobic culture and gram stain Wound Heel, right (11/09/2019 6:15 PM CDT) Direct Specimen Exam Stain: Few polymorphonuclear leukocytes seen. Moderate Gram Positive Cocci Few Gram Negative Bacilli ASHLEIGH GARRETT Comment:Testing performed by : [facility], [address] [place]., [address] Report Final Report: Moderate Mixed microorganisms. Includes the following: Moderate Proteus mirabilis Moderate Morganella morganii (.) ASHLEIGH Comment:Testing performed by : [facility], [address] [place]., [address] Organism PROTEUS MIRABILIS ASHLEIGH Organism MIXED MICROORGANISMS. ASHLEIGH Organism MORGANELLA MORGANII ASHLEIGH Wound (Heel, right) 11/09/2019 6:15 PM CDT 11/09/2019 11:31 PM CDT Narrative ASHLEIGH - 11/14/2019 1:01 PM CDT Specimen received on an ESwab. Testing performed by [facility] Microbiology Laboratory ([phone]) Specimens submitted from normally sterile body sites [...] morganii Piperacillin/Tazobactam INTERPRETA TION Susceptible Oleksandr Ozuna VEHICLE DETAILER LAB MICROBIOLOGY - [facility] Final Result ASHLEIGH [address] [address] [place] [address] * (ABNORMAL) Aerobic and anaerobic culture and gram stain Wound Heel, left (11/09/2019 6:15 PM CDT) Direct Specimen Exam Stain: Few polymorphonuclear leukocytes seen. Rare Gram Negative Bacilli Slide reviewed and direct smear was updated. ASHLEIGH Comment:Testing performed by : [facility], [address] [place]., [address] Report Final Report: Moderate Proteus mirabilis Moderate Morganella morganii Few Mixed microorganisms. (.) ASHLEIGH Comment:Testing performed by : [facility], [address] [place]., [address] Organism M[facility]ED [facility]ORGANISMS. [facility] Organism PROTEUS MIRABILIS ASHLEIGH Organism MORGANELLA MORGANII ASHLEIGH Wound (Heel, left) 11/09/2019 6:15 PM CDT 11/09/2019 11:32 PM CDT Narrative [facility] - 11/18/2019 1:27 PM CDT Specimen received on an ESwab. Testing performed by [facility] Microbiology Laboratory ([phone]) Specimens submitted from normally sterile body sites [...] GENERAL ORDE RABLES Final Result ASHLEIGH GARRETT [address] [address] Department [place] [address] * (ABNORMAL) POCT glucose (11/09/2019 12:15 PM CDT) Glucose, POC 355(H) 70 - 199 mg/dL [facility] Blood specimen (specimen) 11/09/2019 12:15 PM CDT 11/09/2019 12:15 PM CDT Reji Whittaker MD LAB POCT ORDERABLES - DEVICE Final Result ASHLEIGH GARRETT [address] [address] [facility] [place] [address] * (ABNORMAL) POCT glucose (11/09/2019 8:10 AM CDT) Glucose, POC 242(H) 70 - 199 mg/dL [facility] Blood specimen (specimen) 11/09/2019 8:10 AM CDT 11/09/2019 8:10 AM CDT Reji Whittaker MD LAB POCT ORDERABLES - DEVICE Final Result Performing Organization Address [facility] Co de Phone Number ASHLEIGH GERRY [address] [address] [facility] [place] [address] * (ABNORMAL) POCT glucose (11/09/2019 2:23 AM CDT) Glucose, POC 260(H) 70 - 199 mg/dL [facility] Blood specimen (specimen) 11/09/2019 2:23 AM CDT 11/09/2019 2:23 AM CDT Reji Whittaker MD LAB POCT ORDERABLES - DEVICE Final Result Performing Organization Address [facility] de Phone Number LESLIEDONN GARRETT [address] [address] [facility] [place] [address] * (ABNORMAL) POCT glucose (11/08/2019 10:30 PM CDT) Glucose, POC 275(H) 70 - 199 mg/dL [facility] Blood specimen (specimen) 11/08/2019 10:30 PM CDT 11/08/2019 10:30 PM CDT Reji Whittaker MD LAB POCT ORDERABLES - DEVICE Final Result Performing Organization Address [facility] de Phone Number LESLIEDONN GARRETT [address] [address] [facility] [place] [address] * CT Abdomen Pelvis W Contrast (11/08/2019 [...] ORDERABLES - DEVICE Final Result ASHLEIGH GARRETT [address] [address] Department [place] [address] * (ABNORMAL) POCT glucose (11/08/2019 3:03 PM CDT) Glucose, POC 243(H) 70 - 199 mg/dL ASHLEIGH GARRETT Blood specimen (specimen) 11/08/2019 3:03 PM CDT 11/08/2019 3:03 PM CDT Reji Whittaker MD LAB POCT ORDERABLES - DEVICE Final Result Performing Organization Address [facility] Co de Phone Number ASHLEIGH GARRETT [address] [address] Department [place] [address] * US ZAYNAB And Arterial Doppler Lower [...] signed by: Antonino Jane M.D. Zack Johnson VEHICLE DETAILER IMG US PROCEDURES Final Resu lt * (ABNORMAL) POCT glucose (11/08/2019 8:39 AM CDT) Pathologist [facility] Glucose, POC 211(H) 70 - 199 mg/dL ASHLEIGH Blood specimen (specimen) 11/08/2019 8:39 AM CDT 11/08/2019 8:39 AM CDT Reji Whittaker MD LAB POCT ORDERABLES - DEVICE Final Result ASHLEIGH [address] [address] [place] [address] * eGFR (11/08/2019 8:12 AM CDT) Pathologist [facility] eGFR 79 mL/min/1.7 3 m2 ASHLEIGH GARRETT Comment: Interpretive Data Reference Interval Normal ?>/= 90 mL/min/1.73m2 Mildly decreased* ? 60 - 89 mL/min/1.73m2 Mildly to moderately decreased ?45 - 59 mL/min/1.73m2 Moderately to severely decreased ??30 - 44 mL/min/1.73m2 Severely decreased ?15 - 29 mL/min/1.73m2 Kidney Failure ?< 15 ??mL/min/1.73m2 *Relative to young adult level If -Indian multiply value by 1.16. Estimated glomerular filtration [...] NP LAB BLOOD ORDERABLES Final R esult [facility] [address] [address] [place] [address] * (ABNORMAL) Differential, auto (11/08/2019 8:12 AM CDT) Neutrophil abs 10.9(H) 1.7 - 6.5 K/cumm [facility] Imm gran abs 0.1 0.0 - 0.1 K/cumm [facility] Lymphocyte abs 1.3 0.8 - 3.3 K/cumm [facility] Monocyte abs 0.5 0.2 - 0.8 K/cumm [facility] Eosinophil abs 0.1 0.0 - 0.5 K/cumm [facility] Basophil abs 0.1 0.0 - 0.1 K/cumm [facility] Neutrophil pct 84.2 % [facility] Comment: Interpretive Data Percent cell [...] Whittaker MD LAB BLOOD ORDERABLES Final Result [facility] [address] [address] [place] [address] * (ABNORMAL) CBC with auto differential (11/08/2019 8:12 AM CDT) WBC 13.0(H) 3.8 - 9.9 K/cumm [facility] Hgb 8.1(L) 11.9 - 15.5 g/dL [facility] Hct 25.2(L) 35.6 - 45.5 % [facility] Plt 363 150 - 400 K/cumm [facility] MPV 9.1 9.1 - 12.[address] [facility] RBC 2.80(L) 3.90 - 5.20 M/cumm [facility] MCV 90.0 81.3 - 96.[address] [facility] MCH 28.9 27.1 - 33.[address] [facility] MCHC 32.1(L) 32.3 - 35.7 g/dL [facility] RDW CV 14.6 11.1 - 14.9 % [facility] RDW SD 46.9 35.7 - 48.[address] [facility] NRBC abs 0.00 0.00 - 0.01 K/cumm [facility] Blood specimen (specimen) 11/08/2019 8:12 AM CDT 11/08/2019 8:43 AM CDT us Reji Whittaker MD LAB BLOOD ORDERABLES Final Result [facility] [address] [address] [place] [address] * Blood culture Blood (11/08/2019 8:12 AM CDT) Report Final Report: No growth [facility] Comment:Testing performed by : [facility], [address] [place] [address] Blood specimen (specimen) 11/08/2019 8:12 AM CDT [...] organism identification may be performed using the Smavaigene Gram-Positive Blood Culture Assay. This assay detects microbial DNA in positive blood culture broth via hybridization of target DNA to capture oligonucleotides on a microarray. This assay has been cleared by the [place] Food and Drug Administration and its performance characteristics have been verified by the [facility] Microbiology Laboratory. 5. ?For questions about this culture, contact the Microbiology Laboratory at [phone]. Interpretive data was last revised on 2019. Markel Bourgeois MD LAB MICROBIOLOGY - GENER AL ORDERABLES Final Result ASHLEIGH GARRETT [address] [address] [place] [address] * Blood culture Blood (11/08/2019 8:12 AM CDT) Report Final Report: No growth ASHLEIGH GARRETT Comment:Testing performed by : [facility], [address] [place]., [address] Blood specimen (specimen) 11/08/2019 8:12 AM CDT [...] organism identification may be performed using the Smavaigene Gram-Positive Blood Culture Assay. This assay detects microbial DNA in positive blood culture broth via hybridization of target DNA to capture oligonucleotides on a microarray. This assay has been cleared by the [place] Food and Drug Administration and its performance characteristics have been verified by the [facility] Microbiology Laboratory. 5. ?For questions about this culture, contact the Microbiology Laboratory at [phone]. Interpretive data was last revised on 2019. Markel Bourgeois MD LAB MICROBIOLOGY - [facility] AL ORDERABLES Final Result [facility] [address] [address] [place] [address] * (ABNORMAL) Comprehensive metabolic panel (11/08/2019 8:12 AM CDT) Sodium 136 135 - 145 mmol/L [facility] Potassium, pl 3.3 3.3 - 4.9 mmol/L [facility] Chloride 95(L) 97 - 110 mmol/L [facility] CO2 30 22 - 32 mmol/L [facility] Anion gap 11 2 - 15 mmol/L [facility] BUN 23 8 - 25 mg/dL [facility] Creatinine 0.79 0.60 - 1.10 mg/dL [facility] Glucose 208(H) 70 - 199 mg/dL [facility] Comment: Interpretive Data Fasting glucose [...] 11/08/2019 8:42 AM CDT us Zack Johnson VEHICLE DETAILER LAB BLOOD ORDERABLES Final R esult Performing Organization Address [facility] Co de Phone Number ASHLEIGH [address] [address] [facility] [place] [address] * Transfuse RBC (11/08/2019 6:08 AM CDT) Blood specimen (specimen) Reji Whittaker MD BLOOD TRANSFUSION OR DERABLES Final Result Performing Organization Address [facility] Co de Phone Number [facility] [address] [address] [facility] [place] [address] * Transfuse RBC: 1 Units (11/08/2019 6:08 AM CDT) Blood specimen (specimen) Reji Whittaker MD BLOOD TRANSFUSION OR DERABLES Final Result * (ABNORMAL) POCT glucose (11/07/2019 10:35 PM CDT) Glucose, POC 265(H) 70 - 199 mg/dL [facility] Blood specimen (specimen) 11/07/2019 10:35 PM CDT 11/07/2019 10:35 PM CDT Reji Whittaker MD LAB POCT ORDERABLES - DEVICE Final Result Performing Organization Address City/[facility]/ZIP Co de Phone Number ASHLEIGH GARRETT [address] [place] [address] * Type and screen (11/07/2019 [...] TEST ORDERABLES Final Result Performing Organization Address [facility]/ZIP Co de Phone Number LESLIEDONN GERRY [address] [address] [place], [place] [id number] * POCT glucose (11/07/2019 6:03 PM CDT) Pathologist [facility] Glucose, POC 169 70 - 199 mg/dL LESLIEDONN Blood specimen (specimen) 11/07/2019 6:03 PM CDT 11/07/2019 6:03 PM CDT Reji Whittaker MD LAB POCT ORDERABLES - DEVICE Final Result Performing Organization Address [facility] Co de Phone Number ASHLEIGH GARRETT [address] [place] [address] * Prepare RBC: 1 Units (11/07/2019 5:51 PM CDT) Pathologist [facility] Product code [id number] [facility] Unit Number [id number] [facility] Product Blood Type OPOS [facility] Dispense Status PRESUMED TRANSFUSED [facility] Blood specimen (specimen) 11/07/2019 5:51 PM CDT Narrative ASHLEIGH - 11/08/2019 7:17 AM CDT Are special requirements needed? (all products are leukoreduced)->No Date required:-[id number] LRRBC # of [id number] Reasons:-Hgb <7 g/dL} Reji Whittaker MD BLOOD BANK PRODUCT O RDERABLES Final Result Performing Organization Address [facility] de Phone Number [facility] [address] [address] [facility] [place] [address] * (ABNORMAL) POCT glucose (11/07/2019 12:43 PM CDT) Glucose, POC 209(H) 70 - 199 mg/dL [facility] Blood specimen (specimen) 11/07/2019 12:43 PM CDT 11/07/2019 12:43 PM CDT Duke Bernstein MD LAB POCT ORDERABLES - DEVICE Fi nal Result Performing Organization Address [facility] de Phone Number [facility] [address] [address] [facility] [place] [address] * Check Sample (11/07/2019 11:24 AM CDT) ABO Rh O Positive [facility] HCLL OTHER 11/07/2019 11:2 4 AM CDT 11/07/2019 6:36 PM CDT Reji Whittaker MD LAB BLOOD ORDERABLES Final Result Performing Organization Address [facility] de Phone Number [facility] [address] [address] [facility] [place] [address] * eGFR (11/07/2019 11:24 AM CDT) eGFR 62 mL/min/1.[address] [facility] Comment: Interpretive Data Reference Interval Normal ?>/= 90 mL/min/1.73m2 Mildly decreased* ? 60 - 89 mL/min/1.73m2 Mildly to moderately decreased ?45 - 59 mL/min/1.73m2 Moderately to severely decreased ??30 - 44 mL/min/1.73m2 Severely decreased ?15 - 29 mL/min/1.73m2 Kidney Failure ?< 15 ??mL/min/1.73m2 *Relative to young adult level If -Indian multiply value by 1.16. Estimated glomerular filtration [...] LAB BLOOD ORDERABLES Final R esult ASHLEIGH [address] [address] [place] [address] * (ABNORMAL) Differential, auto (11/07/2019 11:24 AM CDT) Neutrophil abs 12.4(H) 1.7 - 6.5 K/cumm [facility] Imm gran abs 0.1 0.0 - 0.1 K/cumm [facility] Lymphocyte abs 1.2 0.8 - 3.3 K/cumm [facility] Monocyte abs 0.5 0.2 - 0.8 K/cumm [facility] Eosinophil abs 0.1 0.0 - 0.5 K/cumm [facility] Basophil abs 0.0 0.0 - 0.1 K/cumm [facility] Neutrophil pct 86.8 % [facility] Comment: Interpretive Data Percent cell [...] NP LAB BLOOD ORDERABLES Final R esult [facility] [address] [address] [place] [address] * (ABNORMAL) Comprehensive metabolic panel (11/07/2019 11:24 [...] CH Creatinine 0.96 0.60 - 1.10 mg/dL [facility] Glucose 197 70 - 199 mg/dL [facility] Comment: Interpretive Data Fasting glucose [...] 2017. Calcium 8.5 8.5 - 10.3 mg/dL [facility] Bilirubin, total 0.5 0.1 - 1.2 mg/dL [facility] Protein, pl 7.6 6.5 - 8.5 g/dL [facility] Albumin 2.6(L) 3.5 - 5.0 g/dL [facility] Alk phos 35(L) 40 - 130 Units/L [facility] ALT 42 7 - 45 Units/L [facility] AST 36 10 - 45 Units/L [facility] Blood specimen (specimen) 11/07/2019 11:24 AM CDT 11/07/2019 11:55 AM CDT Zack Johnson NP LAB BLOOD ORDERABLES Final R esult [facility] [address] [address] [place] [address] * (ABNORMAL) Hemoglobin A1c (11/07/2019 11:24 AM CDT) Hgb A1C 8.6(H) 4.0 - 5.6 % [facility] Estimated Average Glucose 200 mg/dL ASHLEIGH Comment: The ADA recommends reporting an estimated Average Glucose (eAG) with all Hemoglobin A1c results using the equation derived from a study of 507 normal and diabetic adults. ??Minority populations were underrepresented and children were not included. ?? (Diabetes Care 31:8454-1788, 2008). ??The eAG is not equivalent to a fasting glucose. Blood specimen (specimen) 11/07/2019 11:24 AM CDT 11/07/2019 11:49 AM CDT Zack Johnson NP LAB BLOOD ORDERABLES Final R esult Performing Organization Address City/[facility]/ZIP Co de Phone Number ASHLEIGH [address] [place] [address] * (ABNORMAL) CBC with auto differential (11/07/2019 11:24 AM CDT) WBC 14.3(H) 3.8 - 9.9 K/cumm [facility] Hgb 6.7(L) 11.9 - 15.5 g/dL [facility] CH Hct 22.0(L) 35.6 - 45.5 % [facility] Plt 404(H) 150 - 400 K/cumm [facility] MPV 9.4 9.1 - 12.[address] [facility] RBC 2.37(L) 3.90 - 5.20 M/cumm [facility] CH MCV 92.8 81.3 - 96.4 fL [facility] MCH 28.3 27.1 - 33.3 pg [facility] MCHC 30.5(L) 32.3 - 35.7 g/dL [facility] CH RDW CV 14.8 11.1 - 14.9 % [facility] RDW SD 50.0(H) 35.7 - 48.[address] [facility] NRBC abs 0.00 0.00 - 0.01 K/cumm [facility] Blood specimen (specimen) 11/07/2019 11:24 AM CDT 11/07/2019 11:55 AM CDT Zack Johnson NP LAB BLOOD ORDERABLES Final R esult ASHLEIGH GARRETT [address] [address] [place] [address] * POCT glucose (11/07/2019 8:22 AM CDT) Glucose, POC 151 70 - 199 mg/dL [facility] Blood specimen (specimen) 11/07/2019 8:22 AM CDT 11/07/2019 8:22 AM CDT us Duke Bernstein MD LAB POCT ORDERABLES - DEVICE Fi nal Result Performing Organization Address [facility] Co de Phone Number [facility] [address] [address] [place] [address] * (ABNORMAL) Urine culture Urine, in and out catheter (11/07/2019 1:45 AM CDT) Report Final Report: Growth indicates contamination with mixed bacterial alana. Please submit a new specimen with special attention given to the collection process and to prompt transport to the laboratory. (.) [facility] Comment:Testing performed by : [facility], [address] [place] [address]., [id number] Organism GROWTH INDICATES CONTAMINATION WITH MIXED ALANA. [facility] Urine, in and out catheter 11/07/2019 1:45 AM CDT 11/07/2019 8:27 AM CDT Narrative [facility] - 11/11/2019 8:00 PM CDT Urine culture reflexed based upon urinalysis results. Testing performed by [facility] Microbiology Laboratory ([phone]) us Zack Johnson NP LAB MICROBIOLOGY - GENERAL O RDERABLES Final Result Performing Organization Address [facility] Co de Phone Number LESLIEDONN GARRETT [address] [place] [address] * (ABNORMAL) Urinalysis, microscopic only (11/07/2019 1:45 AM CDT) WBC, ur >50(A) 0 - 5 /HPF [facility] RBC, ur >50(A) 0 - 2 /HPF [facility] Epithelial cells, squamous, ur 1-5 0 - 5 /HPF [facility] Bacteria, ur 4+(A) [facility] Culture Reflex Comment Reflex to urine culture will be performed. [facility] Urine, in and out catheter 11/07/2019 1:45 AM CDT 11/07/2019 2:31 AM CDT Zack Johnson NP LAB URINE ORDERABLES Final R esult Performing Organization Address City/[facility]/ZIP Co de Phone Number ASHLEIGH GARRETT [address] [address] [place] [address] * (ABNORMAL) Urinalysis reflex to microscopic and [...] tendency for uric acid stone formation. Source: [facility]. Last revised 03-23-2017 Zack Johnson NP LAB MICROBIOLOGY - GENERAL O RDERABLES Final Result Performing Organization Address [facility]/ZIP Co de Phone Number ASHLEIGH GARRETT [address] [address] [place] [address] * Sepsis Lactate w/ Reflex (11/06/2019 11:55 PM CDT) Sepsis Lactate 1.7 0.7 - 2.0 mmol/L [facility] Blood specimen (specimen) 11/06/2019 11:55 PM CDT 11/07/2019 12:07 AM CDT Sina Schilling MD LAB BLOOD ORDERABLES Final Result ASHLEIGH GARRETT [address] [address] [place] [address] * XR Abdomen Ap 1 Vw (11/06/2019 [...] No dilated small or large bowel loops. Veyo and clips are seen overlying the lower abdomen and pelvis from prior surgery. IMPRESSION: Normal gas pattern. Electronically signed by: Antonino Jane M.D. Zack Johnson VEHICLE DETAILER IMG XR PROCEDURES Final Resu lt * Sepsis Lactate w/ Reflex (11/06/2019 9:29 PM CDT) Sepsis Lactate 1.7 0.7 - 2.0 mmol/L ASHLEIGH GARRETT Blood specimen (specimen) 11/06/2019 9:29 PM CDT 11/06/2019 9:39 PM CDT us Sina Schilling MD LAB BLOOD ORDERABLES Final Result ASHLEIGH GARRETT [address] [place] [address] * XR Foot Right 3 or More [...] by: Antonino Jane M.D. Sina Schilling MD [facility] XR PROCEDURES Final Re sult * eGFR (11/06/2019 7:06 PM CDT) [facility] eGFR 55 mL/min/1.7 3 m2 ASHLEIGH GARRETT Comment: Interpretive Data Reference Interval Normal ?>/= 90 mL/min/1.73m2 Mildly decreased* ? 60 - 89 mL/min/1.73m2 Mildly to moderately decreased ?45 - 59 mL/min/1.73m2 Moderately to severely decreased ??30 - 44 mL/min/1.73m2 Severely decreased ?15 - 29 mL/min/1.73m2 Kidney Failure ?< 15 ??mL/min/1.73m2 *Relative to young adult level If -Indian multiply value by 1.16. Estimated glomerular filtration [...] BLOOD ORDERABLES Final Result Performing Organization Address City/State/[facility] Co de Phone Number [facility] [address] [address] [place] [address] * (ABNORMAL) Differential, auto (11/06/2019 7:06 PM CDT) Neutrophil abs 17.4(H) 1.7 - 6.5 K/cumm [facility] Imm gran abs 0.2(H) 0.0 - 0.1 K/cumm [facility] Lymphocyte abs 1.0 0.8 - 3.3 K/cumm [facility] Monocyte abs 0.6 0.2 - 0.8 K/cumm [facility] Eosinophil abs 0.1 0.0 - 0.5 K/cumm [facility] Basophil abs 0.1 0.0 - 0.1 K/cumm ASHLEIGH Neutrophil pct 90.1 % [facility] Comment: Interpretive Data Percent cell [...] revised on 2017. Basophil pct 0.3 % [facility] Comment: Interpretive Data Percent cell count reference ranges are not reported, since discordance with absolute values may lead to misinterpretation of CBC data. Current Interpretive Data was last revised on 2017. Blood specimen (specimen) 11/06/2019 7:06 PM CDT 11/06/2019 7:12 PM CDT us Sina Schilling MD LAB BLOOD ORDERABLES Final Result ASHLEIGH [address] [address] [place] [address] * (ABNORMAL) Sepsis Lactate w/ Reflex (11/06/2019 7:06 PM CDT) Sepsis Lactate 2.3(H) 0.7 - 2.0 mmol/L ASHLEIGH Blood specimen (specimen) 11/06/2019 7:06 PM CDT 11/06/2019 7:18 PM CDT us Sina Schilling MD LAB BLOOD ORDERABLES Final Result CER[facility] [address] [address] [place] [address] * (ABNORMAL) Comprehensive metabolic panel (11/06/2019 7:06 [...] BLOOD ORDERABLES Final Result Performing Organization Address City/[facility]/ZIP Co de Phone Number ASHLEIGH GARRETT [address] [place] [address] * (ABNORMAL) CBC with auto differential (11/06/2019 7:06 PM CDT) WBC 19.3(H) 3.8 - 9.9 K/cumm [facility] Hgb 7.8(L) 11.9 - 15.5 g/dL [facility] Hct 24.1(L) 35.6 - 45.5 % [facility] Plt 483(H) 150 - 400 K/cumm [facility] MPV 9.6 9.1 - 12.[address] [facility] RBC 2.64(L) 3.90 - 5.20 M/cumm [facility] MCV 91.3 81.3 - 96.[address] [facility] MCH 29.5 27.1 - 33.[address] [facility] MCHC 32.4 32.3 - 35.7 g/dL [facility] RDW CV 14.6 11.1 - 14.9 % [facility] RDW SD 49.1(H) 35.7 - 48.[address] [facility] NRBC abs 0.00 0.00 - 0.01 K/cumm [facility] Blood specimen (specimen) 11/06/2019 7:06 PM CDT 11/06/2019 7:12 PM CDT Sina Schilling MD LAB BLOOD ORDERABLES Final Result ASHLEIGH GARRETT [address] Department [place] [address] * (ABNORMAL) Blood culture Blood (11/06/2019 7:06 PM CDT) Direct Specimen Exam Stain: Gram Negative Bacilli Time to culture positivity (anaerobic media): 12.6 hours Time to culture positivity (aerobic media): 19.[address] [facility] Comment:Testing performed by : [facility], [address] [place]., [address] Report Final Report: Proteus mirabilis (.) ASHLEIGH GARRETT Comment:Testing performed by : [facility], [address] [place]., [address] Organism PROTEUS MIRABILIS ASHLEIGH GARRETT Blood specimen [...] organism identification may be performed using the Smavaigene Gram-Positive Blood Culture Assay. This assay detects microbial DNA in positive blood culture broth via hybridization of target DNA to capture oligonucleotides on a microarray. This assay has been cleared by the [place] Food and Drug Administration and its performance characteristics have been verified by the [facility] Microbiology Laboratory. 5. ?For questions about this culture, contact the Microbiology Laboratory at [phone]. Interpretive data was last revised on 2019. [...] LAB MICROBIOLOGY - GENERAL ORDERABLES Final Result [facility] [address] [address] [place] [address] * (ABNORMAL) Blood culture Blood (11/06/2019 7:06 PM CDT) Direct Specimen Exam Stain: Gram Negative Bacilli Time to culture positivity (anaerobic media): 10.9 hours Time to culture positivity (aerobic media): 27.4 hours Notification of: Gram Negative Bacilli called to and read back by: Joleen Michel RN ([phone]) on 11/07/2019 11:56:21 by: LORENZO Poon Comment:Testing performed by : [facility], [address] [place] [address]., [address] Report Final Report: Morganella morganii Proteus mirabilis For susceptibility results, refer to accession number [id number] on the blood culture from 11/06/2019 (.) ASHLEIGH Comment:Testing performed by : [facility], [address] [place] [address]., [address] Organism MORGANELLA MORGANII ASHLEIGH Organism PROTEUS MIRABILIS ASHLEIGH Blood specimen (specimen) 11/06/2019 7:06 PM CDT 11/07/2019 12:18 AM CDT [facility] - 11/10/2019 7:12 AM CDT [...] organism identification may be performed using the Therasis Gram-Positive Blood Culture Assay. This assay detects microbial DNA in positive blood culture broth via hybridization of target DNA to capture oligonucleotides on a microarray. This assay has been cleared by the [place] Food and Drug Administration and its performance characteristics have been verified by the [facility] Microbiology Laboratory. 5. ?For questions about this culture, contact the Microbiology Laboratory at [phone]. Interpretive data was last revised on 2019. [...] MICROBIOLOGY - GENERAL ORDERABLES Final Result ASHLEIGH [address] [address] [place] [address] documented in this encounter Visit [...] 1-3 Units, subcutaneous, Nightly, First dose on [place] 11/10/19 at 2100, Blood Sugar Mid Dose [...] Rossana Santiago LPN) 0825 (Given - Provider: Brneda Arita RN) 1046 (Not Given - Provider: [...] UNABLE to swallow/take PO glucose/juice., Starting on [place] 11/10/19 at 0936, After treatment for hypoglycemia, [...] glucose less than 70 mg/dL, Starting on [place] 11/10/19 at 0936, If patient is alert [...] unable to take PO glucose/jiuce., Starting on [place] 11/10/19 at 0936, After Glucagon is administered, [...] documented as of this encounter Care Teams Ice Crusher Relationship Specialty Start Date End Date Zeke Puente MD [address] [place] [address] PCP - General 12/02/18 Damon Swanson DO [address] [place] [address] Medical Oncologist/Director Of Solutions Architecture Hematology and Oncology 10/25/17 Karl Smith Jr., MD [address] [place] [address] Surgeon General Surgery 11/07/19 documented as of this encounter
--- OUTSIDE RECORDS SUMMARY | 2024-02-27 03:16 | XMS_ITS | Encounter Summary ---
Author Organization [facility] Healthcare Address [address] [place] [address] Care Team Providers Care Etl Bi Developer Name Role Phone Unavailable Primary Care Provider Unavailabl e Encounter Details Date Type Department Care Team (Latest Contact Info) Description 12/18/2015 2:07 PM CDT Hospital Encounter [facility] OP Encounter for screening mammogram for malignant neoplasm of breast; Personal history of malignant neoplasm of breast Social History Tobacco Use Types Packs/Day Years Used Date Smoking Tobacco: Never Assessed Comments Unknown Sex and Gender Information Value Date Recorded Sex Assigned at Not on file Legal Sex Female 12:30 PM EHS MANAGER Gender Identity Not on file Sexual [...] by: Dr. Venkat Champion nh/:12/21/2015 07:50:04 ?? Morgue Keeper: Lucero VIVEROS (Yocasta)(Nathan), [facility] letter sent: Normal Exam ?? Reading [...] dated: ??11/07/2014 mammogram and 10/30/2013 mammogram - [facility]. ?? BREAST TISSUE: The tissue of [...] dated: 11/07/2014 mammogram and 10/30/2013 mammogram - [facility]. BREAST TISSUE: The tissue of both [...] signed by: Dr. Venkat Champion nh/:12/21/2015 07:50:04 Morgue Keeper: Lucero VIVEROS (R)(Nathan), [facility] letter sent: Normal Exam Reading location: BI-RADS: 2 Benign [EOD] us Historical Provider MD MONTERO MAMMO PROCEDURES Debbie l Result documented in this encounter Visit Diagnoses Diagnosis Encounter for screening mammogram for malignant neoplasm of breast Personal history of malignant neoplasm of breast documented in this encounter
--- OUTSIDE RECORDS SUMMARY | 2024-02-27 03:16 | XMS_ITS | Encounter Summary ---
Author Organization [facility] Healthcare Address [address] [place] [address] Care Team Providers Care Flavor Maker Name Role Phone Unavailable Primary Care Provider Unavailabl e Encounter Details Date Type Department Care Team (Latest Contact Info) Description 01/23/2014 12:40 PM CREDIT AND COLLECTION MANAGER Hospital Encounter [facility] OP Damon Swanson, DO [address] [id number] Observation for suspected malignant neoplasm; Malignant neoplasm of breast (female) (HCC) Social History Tobacco Use Types Packs/Day Years Used Date Smoking Tobacco: Never Assessed Comments Unknown Sex and Gender Information Value Date Recorded Sex Assigned at Not on file Legal Sex Female 12:30 PM CREDIT AND COLLECTION MANAGER Gender Identity Not on file Sexual Orientation Not on file documented as of this encounter Plan of Treatment Not on file documented as of this encounter Procedures Procedure Name Priority Date/Time Associated Diagnosis Comments CT CHEST W CONTRAST Routine 01/23/2014 2 :00 PM CREDIT AND COLLECTION MANAGER CT ABDOMEN W CONTRAST Routine 01/23/2014 1:30 PM CREDIT AND COLLECTION MANAGER documented in this encounter Results * CT Chest W Contrast (01/23/2014 2:00 PM CREDIT AND COLLECTION MANAGER) Anatomical Region Laterality Modality Body N/A Computed Tomogra phy 01/23/2014 2:00 PM CREDIT AND COLLECTION MANAGER Impressions 01/24/2014 1:26 AM CREDIT AND COLLECTION MANAGER No evidence of metastatic disease in the chest abdomen or pelvis. ??Interval postsurgical changes to the anterior abdominal wall with a postoperative seroma now present. ??No other change from prior study. THIS IS AN ELECTRONICALLY VERIFIED REPORT 01/24/2014 1:23 AM: ??Luisito Eklins M.D. Luisito Elkins M.D. RW:ameena 01:23 AM 01:23 AM DARIO [EOD] Narrative 01/24/2014 1:26 AM CREDIT AND COLLECTION MANAGER EXAMINATION: CT CHEST ABDOMEN AWITH CONTRAST HISTORY: [...] CT Abdomen W Contrast (01/23/2014 1:30 PM CREDIT AND COLLECTION MANAGER) Anatomical Region Laterality Modality Body N/A Computed Tomogra phy 01/23/2014 1:30 PM CREDIT AND COLLECTION MANAGER Impressions 01/24/2014 1:27 AM CREDIT AND COLLECTION MANAGER No evidence of metastatic disease in the chest abdomen or pelvis. ??Interval postsurgical changes to the anterior abdominal wall with a postoperative seroma now present. ??No other change from prior study. THIS IS AN ELECTRONICALLY VERIFIED REPORT 01/24/2014 1:23 AM: ??Luisito Elkins M.D. Luisito Elkins M.D. RW:ameena 01:23 AM 01:23 AM DARIO [EOD] Narrative 01/24/2014 1:27 AM CREDIT AND COLLECTION MANAGER EXAMINATION: CT CHEST ABDOMEN AWITH CONTRAST HISTORY: [...]
--- OUTSIDE RECORDS SUMMARY | 2024-02-27 03:16 | XMS_ITS | Encounter Summary ---
Author Organization [facility] Healthcare Address [address] [place] [address] Care Team Providers Care Cisco Unified Communications Engineer Name Role Phone Unavailable Primary Care Provider Unavailabl e Encounter Details Date Type Department Care Team (Latest Contact Info) Description 03/02/2015 8:45 AM TRANSFORMER TESTER Hospital Encounter [facility] OP Damon Swanson, DO [facility] [id number] Malignant neoplasm of female breast (CMS/HCC); Secondary malignant neoplasm (CMS/HCC); Encounter for observation for other suspected diseases and conditions ruled out Social History Tobacco Use Types Packs/Day Years Used Date Smoking Tobacco: Never Assessed Comments Unknown Sex and Gender Information Value Date Recorded Sex Assigned at Not on file Legal Sex Female 12:30 PM TRANSFORMER TESTER Gender Identity Not on file Sexual Orientation Not on file documented as of this encounter Plan of Treatment Not on file documented as of this encounter Procedures Procedure Name Priority Date/Time Associated Diagnosis Comments CT CHEST W CONTRAST Routine 03/02/2015 9 :[address] ABDOMEN W CONTRAST Routine 03/02/2015 9:00 AM TRANSFORMER TESTER documented in this encounter Results * CT Chest W Contrast (03/02/2015 9:30 AM TRANSFORMER TESTER) Anatomical Region Laterality Modality Body N/A Computed Tomogra phy 03/02/2015 9:30 AM TRANSFORMER TESTER Impressions 03/02/2015 3:59 PM TRANSFORMER TESTER ?? 1. ??No definite metastatic disease within the chest or abdomen. 2. ??Stable postoperative seromas involving the right breast in the anterior abdominal wall. 3. ??Incidental findings as discussed above THIS IS AN ELECTRONICALLY VERIFIED REPORT 03/02/2015 3:57 PM: ??Kathy Contreras M.D. Kathy Contreras M.D. TB:giuliana 12:43 PM 12:48 PM BOR [EOD] Narrative 03/02/2015 3:59 PM TRANSFORMER TESTER EXAMINATION: ??CT chest and abdomen with contrast [...] CT Abdomen W Contrast (03/02/2015 9:00 AM TRANSFORMER TESTER) Anatomical Region Laterality Modality Body N/A Computed Tomogra phy 03/02/2015 9:00 AM TRANSFORMER TESTER Impressions 03/02/2015 12:43 PM TRANSFORMER TESTER ?? 1. ??No definite metastatic disease within the chest or abdomen. 2. ??Stable postoperative seromas involving the right breast in the anterior abdominal wall. 3. ??Incidental findings as discussed above THIS IS AN ELECTRONICALLY VERIFIED REPORT 03/02/2015 12:40 PM: ??Kathy Contreras M.D. Kathy Contreras M.D. TB:jelena 12:40 PM 12:40 PM BOR [EOD] Narrative 03/02/2015 12:43 PM TRANSFORMER TESTER EXAMINATION: ??CT chest and abdomen with contrast [...]
--- OUTSIDE RECORDS SUMMARY | 2024-02-27 03:16 | XMS_ITS | Encounter Summary ---
Author Organization [facility] Address [address] [place] [address] Phone Care Team Providers Care Trolley Worker Name Role Phone Zeke Puente MD Primary Care Provider [phone] Damon Swanson DO Unavailable [phone] Encounter Details Date Type Department Care Team (Late st Contact Info) Description 10/30/2017 10:30 AM CDT Lab [facility] Oncology [address] [place] [id number] Social History Tobacco Use Types Packs/Day Years Used Date Smoking Tobacco: Never Smokeless Tobacco: Never Alcohol Use Standard Drinks/Week Comments No 0 (1 standard drink = 0.6 oz pur e alcohol) Comments Unknown Sex and Gender Information Value Date Recorded Sex Assigned at Not on file Legal Sex Female 12:30 PM BIG DATA LEAD Gender Identity Not on file Sexual Orientation Not on file documented as of this encounter Plan of Treatment Not on file documented as of this encounter Visit Diagnoses Not on filedocumented in this encounter Care Teams Trolley Worker Relationship Specialty Start Date End Date Zeke Puente MD [address] [place] [address] PCP - General 07/10/17 06/11/18 Damon Swanson DO [address] [place] [address] Medical Oncologist/Mortar Mixer Operator Hematology and Oncology 10/25/17 documented as of this encounter
--- OUTSIDE RECORDS SUMMARY | 2024-02-27 03:16 | XMS_ITS | Encounter Summary ---
Author Organization [facility] Healthcare Address [address] [place] [address] Care Team Providers Care Broadband Engineer Name Role Phone Zeke Puente MD Primary Care Provider [phone] Damon Swanson DO Unavailable Encounter Details Date Type Department Care Team (Latest Contact Info) Description 04/09/2018 4:47 PM INSULATION HELPER - 04/09/2018 7:36 PM INSULATION HELPER Hospital Encounter [address] [address] Vic Ortez MD [address] [place] [id number] Discharge Disposition: Discharge to home or self care Social History Tobacco Use Types Packs/Day Years Used Date Smoking Tobacco: Never Smokeless Tobacco: Never Alcohol Use Standard Drinks/Week Comments No 0 (1 standard drink = 0.6 oz pur e alcohol) Comments Unknown Sex and Gender Information Value Date Recorded Sex Assigned at Not on file Legal Sex Female 12:30 PM INSULATION HELPER Gender Identity Not on file Sexual Orientation Not on file documented as of this encounter Last Filed Vital Signs Vital Sign Reading Time Taken Comments Blood Pressure 142/68 04/09/2018 5:15 PM INSULATION HELPER Pulse 81 04/09/2018 5:15 PM INSULATION HELPER Temperature 36.8 ??C (98.2 ??F) 04/09/2018 5:15 PM CS T Respiratory Rate - - Oxygen Saturation 100% 04/09/2018 5:15 PM INSULATION HELPER Inhaled Oxygen Concentration - - Weight 95.3 kg (210 lb) 04/09/2018 5:15 PM INSULATION HELPER Height 157.5 cm (5' 2 ) 04/09/2018 5:15 PM INSULATION HELPER Body Mass Index 38.41 04/09/2018 5:15 PM INSULATION HELPER documented in this encounter Medications at Time [...] WITH AUTO DIFFERENTIAL Routine 04/09/2018 6:15 PM INSULATION HELPER D-DIMER, QUANTITATIVE Routine 04/09/2018 6:15 PM INSULATION HELPER B-TYPE NATRIURETIC PEPTIDE Routine 04/09/2018 6:15 PM INSULATION HELPER COMPREHENSIVE METABOLIC PANEL Routine 04/09/2018 6:15 PM INSULATION HELPER XR CHEST 1 VIEW Routine 04/09/2018 6:03 PM INSULATION HELPER documented in this encounter Results * (ABNORMAL) D-dimer, quantitative (04/09/2018 6:15 PM INSULATION HELPER) [facility] D-Dimer, Quantitative 0.62(H) 0.00 - 0.50 FEUug/ml 04/09/2018 6:41 PM INSULATION HELPER [facility] HISTORICAL RESULTS Comment: Studies indicate that a D-Dimer level of <0.50 FEUug/ml has a >95% negative predictive value for DVT,DIC,PE and other embolus conditions. ??Levels >0.50 FEUug/ml may be present in a wide variety of conditions and should not be considered diagnostic of any disease state. 04/09/2018 6:15 PM INSULATION HELPER 04/09/2018 6:19 PM INSULATION HELPER Louie Urban PARQUETRY LAYER LAB BLOOD ORDERABLES Debbie l Result Performing Organization Address [facility] de Phone Number [facility] HISTORICAL RESULTS * B-type natriuretic peptide (04/09/2018 6:15 PM INSULATION HELPER) [facility] B-Natriuretic Peptide 34 0 - 100 pg/mL 04/09/2018 6:59 PM INSULATION HELPER [facility] HISTORICAL RESULTS Comment: B Natriutetic Peptide METHOD: [...] or infusion of nesiritide. 04/09/2018 6:15 PM INSULATION HELPER 04/09/2018 6:19 PM INSULATION HELPER Louie Urban PARQUETRY LAYER LAB BLOOD ORDERABLES Debbie l Result Performing Organization Address [facility] Co de Phone Number [facility] HISTORICAL RESULTS * (ABNORMAL) Comprehensive metabolic panel (04/09/2018 6:15 PM INSULATION HELPER) Sodium 136 135 - 145 mmol/L Potassium 3.2(L) 3.3 - 5.1 mmol/L Chloride 93(L) 96 - 108 mmol/L Carbon Dioxide 32 22 - 32 mmol/L Anion Gap 11 7 - 16 Glucose 364(H) 70 - 100 mg/dL BUN 19 8 - 23 mg/dL Creatinine 0.7 0.5 - 1.1 mg/dL 04/09/2018 6:50 PM INSULATION HELPER [facility] [employer] [facility] HISTORICAL RESULTS Comment: NOTE: Estimated GFR (Cockroft-Gault) will NOT be calculated unless patient Height and Weight were entered. Also, Kidney Disease Stage (GFR) and Estimated GFR (Cockroft-Gault) will NOT be calculated if Creatinine result is <0.2. Kidney Disease Stage > 90 mL/MIN 04/09/2018 6:50 PM [employer] [facility] HISTORICAL RESULTS Comment: NOTE; ??The GFR is [...] 8.8 - 10.2 mg/dL 04/09/2018 6:50 PM INSULATION HELPER [facility] HISTORICAL RESULTS Total Protein 7.5 6.4 - 8.3 g/dL Albumin 4.4 3.5 - 5.2 g/dL Globulin 3.1 2.3 - 3.5 gm/dL Albumin/Globulin Ratio 1.4 1.1 - 1.8 04/09/2018 6:50 PM INSULATION HELPER [facility] HISTORICAL RESULTS Total Bilirubin 1.2 0.0 - 1.2 mg/dL AST 22 0 - 32 U/L ALT 14 0 - 33 U/L Alkaline Phosphatase 87 35 - 104 U/L 04/09/2018 6:15 PM INSULATION HELPER 04/09/2018 6:19 PM INSULATION HELPER us Ashleigh Contreras PARQUETRY LAYER LAB BLOOD ORDERABLES Final Resul t [facility] HISTORICAL RESULTS * (ABNORMAL) CBC with auto differential (04/09/2018 6:15 PM INSULATION HELPER) WBC 4.3 3.8 - 9.9 X10 3/ul RBC 3.62(L) 3.90 - 5.20 x10 6/ul Hemoglobin 11.1(L) 11.9 - 15.5 g/dL Hct 33.3(L) 35.6 - 45.5 % MCV 92.0 81.3 - 96.4 fl MCH 30.7 27.1 - 33.3 pg MCHC 33.3 32.3 - 35.7 g/dl 04/09/2018 6:28 PM [facility] HISTORICAL RESULTS RDW 14.1 11.1 - 14.9 % 04/09/2018 6:28 PM [facility] [employer] [facility] HISTORICAL RESULTS Plt Count 182 150 - 400 x10 3/ul 04/09/2018 6:28 PM [facility] HISTORICAL RESULTS MPV 11.0 9.1 - 12.3 fl 04/09/2018 6:28 PM [facility] HISTORICAL RESULTS Neut % 77.0 % 04/09/2018 6:28 PM [facility] HISTORICAL RESULTS Immature Gran % 0.2 % 9 6:28 PM [facility] HISTORICAL RESULTS Lymph % 14.6 % 04/09/2018 6:28 PM [facility] HISTORICAL RESULTS [place] % 6.3 % Eos % 1.4 % 04/09/2018 6:28 PM [facility] HISTORICAL RESULTS Baso % 0.5 % Absolute Neuts (auto) 3.3 1.7 - 6.5 x10 3/ul 04/09/2018 6:28 PM [facility] HISTORICAL RESULTS Immature Gran # 0.0 0.0 - 0.1 x10 3/ul 04/09/2018 6:28 PM [facility] HISTORICAL RESULTS Absolute Lymphs (auto) 0.6(L) 0.8 - 3.3 x10 3/ul 04/09/2018 6:28 PM [facility] [employer] [facility] HISTORICAL RESULTS Absolute Monos (auto) 0.3 0.2 - 0.8 x10 3/ul 04/09/2018 6:28 PM INSULATION HELPER [facility] HISTORICAL RESULTS Absolute Eos (auto) 0.1 0.0 - 0.5 x10 3/ul 04/09/2018 6:28 PM INSULATION HELPER [facility] HISTORICAL RESULTS Absolute Basos (auto) 0.0 0.0 - 0.1 x10 3/ul 04/09/2018 6:28 PM INSULATION HELPER [facility] HISTORICAL RESULTS Nucleat RBC Rel Count 0.0 #/100WBC 04/09/2018 6:28 PM INSULATION HELPER [facility] HISTORICAL RESULTS Absolute Nucleated RBC 0.00 0.00 - 0.01 x10 3/ul 04/09/2018 6:28 PM INSULATION HELPER [facility] HISTORICAL RESULTS Absolute Neutrophils 3300 200 - 8000 /ul 04/09/2018 6:28 PM INSULATION HELPER [facility] HISTORICAL RESULTS 04/09/2018 6:15 PM INSULATION HELPER 04/09/2018 6:19 PM INSULATION HELPER us Ashleigh Contreras PARQUETRY LAYER LAB BLOOD ORDERABLES Final Resul t [facility] HISTORICAL RESULTS * XR Chest 1 View (04/09/2018 6:03 PM INSULATION HELPER) Anatomical Region Laterality Modality Body, Chest N/A Radiographic Sylvia ging 04/09/2018 6:03 PM INSULATION HELPER Impressions 04/09/2018 6:58 PM INSULATION HELPER ??No acute cardiopulmonary disease. ??Mild cardiomegaly similar to the prior study. THIS IS AN ELECTRONICALLY VERIFIED FINAL REPORT 04/09/2018 6:55 PM - Electronically signed by Yoandy Dang M.D. AMALIA D: ??04/09/2018 6:55 PM T: Report ID: [id number] Reading Location: ??[id number] [EOD] Narrative 04/09/2018 6:58 PM INSULATION HELPER EXAM DESCRIPTION: ??Chest 1 View Portable REASON [...] Yoandy Dang M.D. AMALIA T: Report ID: [id number] Reading Location: [place] [address] [EOD] Louie Urban PARQUETRY LAYER IMG XR PROCEDURES Final R esult documented in this encounter Visit Diagnoses Not on filedocumented in this encounter Care Teams Broadband Engineer Relationship Specialty Start Date End Date Zeke Puente MD [address] [place] [address] PCP - General 07/10/17 06/11/18 Damon Swanson DO [address] [place] [address] Medical Oncologist/Charter Representative Hematology and Oncology 10/25/17 documented as of this encounter
--- OUTSIDE RECORDS SUMMARY | 2024-02-27 03:16 | XMS_ITS | Encounter Summary ---
Author Organization [facility] Healthcare Address [address] [place] [address] Care Team Providers Care System Software Developer Name Role Phone Unavailable Primary Care Provider Unavailabl e Encounter Details Date Type Department Care Team (Latest Contact Info) Description 11/28/2012 1:53 PM CDT Hospital Encounter [facility] OP bAhishek Carrasquillo MD [address] [place] [address] [place] [address] Dyspepsia and other specified disorders of function of stomach Social History Tobacco Use Types Packs/Day Years Used Date Smoking Tobacco: Never Assessed Comments Unknown Sex and Gender Information Value Date Recorded Sex Assigned at Not on file Legal Sex Female 12:30 PM YOUTH SERVICES LIBRARIAN Gender Identity Not on file Sexual Orientation [...] Marc D.O. :denice 03:47 PM 03:58 PM [facility] [EOD] Narrative 11/29/2012 7:47 AM CDT EXAMINATION: [...] Marc D.O. :denice 03:47 PM 03:58 PM [facility] [EOD] us Abhishek Carrasquillo MD IMG US PROCEDURES Fi nal Result documented in this encounter Visit Diagnoses Diagnosis Dyspepsia and other specified disorders of function of stomach documented in this encounter
--- OUTSIDE RECORDS SUMMARY | 2024-02-27 03:16 | XMS_ITS | Encounter Summary ---
Author Organization [facility] Healthcare Address [address] [place] [address] Care Team Providers Care Animal Control Licensing Worker Name Role Phone Zeke Puente MD Primary Care Provider [phone] Damon Swanson DO Unavailable [phone] Encounter Details Date Type Department Care Team (Latest Contact Info) Description 11/18/2017 3:36 PM CDT - 11/19/2017 1:25 AM CDT Hospital Encounter [facility] Thomas Retana Jr., MD [address] [place] [address] Type 2 diabetes mellitus with hyperglycemia (CMS/HCC); Hypertensive urgency; Abnormal results of liver function studies; Obesity; Type 2 diabetes mellitus with diabetic polyneuropathy (CMS/HCC); Essential (primary) hypertension; Hyperlipidemia; Bipolar disorder (CMS/HCC); Schizophrenia (CMS/HCC); Hypothyroidism; Tubal ligation status; Other long term care pharmacist (current) drug therapy; 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) Social History Tobacco Use Types Packs/Day Years Used Date Smoking Tobacco: Never Smokeless Tobacco: Never Alcohol Use Standard Drinks/Week Comments No 0 (1 standard drink = 0.6 oz pur e alcohol) Comments Unknown Sex and Gender Information Value Date Recorded Sex Assigned at Not on file Legal Sex Female 12:30 PM HAND COPER Gender Identity Not on file Sexual Orientation [...] Urine Ketones NEGATIVE NEGATIVE mg/dL Ur Specific [place] 1.016 1.005 - 1.025 Urine Blood NEGATIVE NEGATIVE mg/dl Urine pH 7.0 5.0 - 8.0 Urine Protein 30(H) NEGATIVE mg/dL Urine Urobilinogen 4(H) NORMAL mg/dL Urine Nitrite NEGATIVE NEGATIVE 11/18/2017 9:06 PM CDT [facility] HISTORICAL RESULTS Ur Leukocyte Esterase NEGATIVE NEGATIVE Bernadette/ul 11/18/2017 9:06 PM CDT [facility] HISTORICAL RESULTS Ur Microscopic Review Indicated or Ordered 11/18/2017 9:06 PM CDT [facility] HISTORICAL RESULTS Urine RBC 5 0 - 2 /HPF 11/18/2017 9:06 PM CDT [facility] HISTORICAL RESULTS Urine WBC 1 0 - 2 /HPF 11/18/2017 9:06 PM CDT [facility] HISTORICAL RESULTS Urine Mucus RARE /LPF 11/18/2017 9:06 PM CDT [facility] HISTORICAL RESULTS Ur Squamous Epith Cells Rare /HPF 11/18/2017 9:06 PM CDT [facility] HISTORICAL RESULTS 11/18/2017 8:45 PM CDT 11/18/2017 8:53 PM CDT Narrative [facility] HISTORICAL RESULTS - 11/18/2017 9:06 PM CDT Indication(s) for ordering ? Fever -unknown source ?? us Silke GONZALEZ LAB MICROBIOLOGY - [facility] Final Result Performing Organization Address [facility]/ZIP Co de Phone Number [facility] HISTORICAL RESULTS * (ABNORMAL) D-dimer, quantitative (11/18/2017 7:20 PM CDT) D-Dimer, Quantitative 0.72(H) 0.00 - 0.50 FEUug/ml 11/18/2017 7:38 PM CDT [facility] HISTORICAL RESULTS Comment: Studies indicate that a [...] ORDERABLES Final Resul t Performing Organization Address City/[facility]/ZIP Co de Phone Number [facility] HISTORICAL RESULTS * B-type natriuretic peptide (11/18/2017 7:20 PM CDT) Pathologist [facility] B-Natriuretic Peptide 83 0 - 100 pg/mL 11/18/2017 7:57 PM T [facility] HISTORICAL RESULTS Comment: B Natriutetic Peptide METHOD: [...] Broussard LAB BLOOD ORDERABLES Final Resul t [facility] HISTORICAL RESULTS * (ABNORMAL) Comprehensive metabolic panel (11/18/2017 6:06 PM CDT) Pathologist [facility] Sodium 139 135 - 145 mmol/L 11/18/2017 6:50 PM T [facility] HISTORICAL RESULTS Potassium 3.9 3.3 - 5.1 mmol/L 11/18/2017 7:56 PM T [facility] HISTORICAL RESULTS Comment:SPECIMEN HEMOLYZED, REDRAW IS SUGGESTED Chloride 96 96 - 108 mmol/L Carbon Dioxide 27 22 - 32 mmol/L Anion Gap 16 7 - 16 11/18/2017 6:50 PM T [facility] HISTORICAL RESULTS Glucose 294(H) 70 - 100 mg/dL BUN 12 8 - 23 mg/dL 11/18/2017 6:50 PM T [facility] HISTORICAL RESULTS Creatinine 0.5 0.5 - 1.1 mg/dL 11/18/2017 6:50 PM T [facility] HISTORICAL RESULTS Comment: NOTE: Estimated GFR (Cockroft-Gault) [...] 1.1 - 1.8 11/18/2017 6:50 PM T [facility] HISTORICAL RESULTS Total Bilirubin 0.8 0.0 - 1.2 mg/dL 11/18/2017 6:50 PM T [facility] HISTORICAL RESULTS AST 98(H) 0 - 32 U/L 11/18/2017 7:56 PM T [facility] HISTORICAL RESULTS Comment:SPECIMEN HEMOLYZED, REDRAW IS SUGGESTED ALT 106(H) 0 - 33 U/L 11/18/2017 7:56 PM T [facility] HISTORICAL RESULTS Comment:SPECIMEN HEMOLYZED, REDRAW IS SUGGESTED Alkaline Phosphatase 64 35 - 104 U/L 11/18/2017 6:49 PM T [facility] HISTORICAL RESULTS 11/18/2017 6:06 PM CDT 11/18/2017 6:08 PM CDT us Historical Provider LAB BLOOD ORDERABLES Debbie l Result Performing Organization Address City/[facility]/ZIP Co de Phone Number [facility] HISTORICAL RESULTS * Troponin I (11/18/2017 4:19 PM CDT) Pathologist [facility] Troponin I < 0.300 0.000 - 0.300 ng/mL 11/18/2017 4:55 PM T [facility] HISTORICAL RESULTS Comment: Reference using CHRISTIANE Chemiluminescence ? Negative: Repeat in 4-6 hours as indicated. 11/18/2017 4:19 PM CDT 11/18/2017 4:30 PM CDT us Silke GONZALEZ LAB BLOOD ORDERABLES Final Resu lt [facility] HISTORICAL RESULTS * (ABNORMAL) CBC with auto differential (11/18/2017 4:19 PM CDT) WBC 4.2 3.5 - 10.5 x10 3/ul 11/18/2017 4:33 PM T [facility] HISTORICAL RESULTS RBC 3.41(L) 3.76 - 4.80 x10 6/ul 11/18/2017 4:33 PM CDT [facility] HISTORICAL RESULTS Hemoglobin 10.9(L) 11.0 - 15.0 g/dL Hct 30.5(L) 33.0 - 43.0 % MCV 89.4 80.0 - 97.0 fl 11/18/2017 4:33 PM CDT [facility] HISTORICAL RESULTS MCH 32.0(H) 27.0 - 31.2 pg 11/18/2017 4:33 PM CDT [facility] HISTORICAL RESULTS MCHC 35.7(H) 31.8 - 35.4 g/dl RDW 13.9 11.6 - 14.8 % Plt Count 162 150 - 450 X10 3/ul 11/18/2017 4:33 PM T [facility] HISTORICAL RESULTS MPV 10.7(H) 7.4 - 10.4 fl 11/18/2017 4:33 PM T [facility] HISTORICAL RESULTS Neut % 65.5 37.0 - 85.0 % 11/18/2017 4:33 PM T [facility] HISTORICAL RESULTS Immature Gran % 0.5 0.0 - 3.0 % 11/18/2017 4:33 PM T [facility] HISTORICAL RESULTS Lymph % 25.4 5.0 - 45.0 % 11/18/2017 4:33 PM CDT [facility] HISTORICAL RESULTS [place] % 6.2 3.0 - 15.0 % 11/18/2017 4:33 PM CDT [facility] HISTORICAL RESULTS Eos % 1.7 0.0 - 7.0 % Baso % 0.7 0.0 - 2.0 % Absolute Neuts (auto) 2.7 1.7 - 8.7 x10 3/ul Immature Gran # 0.0 0.0 - 0.3 x10 3/ul 11/18/2017 4:33 PM CDT [facility] HISTORICAL RESULTS Absolute Lymphs (auto) 1.1 0.2 - 4.6 x10 3/ul 11/18/2017 4:33 PM CDT [facility] HISTORICAL RESULTS Absolute Monos (auto) 0.3 0.1 - 1.5 x10 3/ul 11/18/2017 4:33 PM CDT [facility] HISTORICAL RESULTS Absolute Eos (auto) 0.1 0.0 - 0.7 x10 3/ul 11/18/2017 4:33 PM CDT [facility] HISTORICAL RESULTS Absolute Basos (auto) 0.0 0.0 - 0.2 x10 3/ul 11/18/2017 4:33 PM T [facility] HISTORICAL RESULTS Nucleat RBC Rel Count 0.0 0 - 3 #/100WBC 11/18/2017 4:33 PM T [facility] HISTORICAL RESULTS Absolute Nucleated RBC 0.00 x10 3/ul 11/18/2017 4:33 PM CDT [facility] HISTORICAL RESULTS Absolute Neutrophils 2700 200 - 8000 /ul 11/18/2017 4:33 PM CDT [facility] HISTORICAL RESULTS 11/18/2017 4:19 PM CDT 11/18/2017 4:30 PM CDT us Silke GONZALEZ LAB BLOOD ORDERABLES Final Resu lt [facility] HISTORICAL RESULTS * XR Chest Pa Lateral [...] D: ??11/18/2017 4:50 PM T: Report ID: [id number] Reading Location: ??[id number] [EOD] Narrative 11/18/2017 4:53 PM CDT EXAM [...] by Jayy Hernandez M.D. T: Report ID: [id number] Reading Location: [id number] [EOD] Silke GONZALEZ IMG XR PROCEDURES Final [...] D: ??11/18/2017 5:45 PM T: Report ID: [id number] Reading Location: ??[id number] [EOD] Narrative 11/18/2017 5:48 PM CDT EXAM [...] by Jayy Hernandez M.D. 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
--- OUTSIDE RECORDS SUMMARY | 2024-02-27 03:16 | XMS_ITS | Encounter Summary ---
Author Organization [facility] Healthcare Address [address] [place] [address] Care Team Providers Care Rubber Stamp Die Inspector Name Role Phone Zeke Puente MD Primary Care Provider [phone] Encounter Details Date Type Department Care Team (Latest Contact Info) Description 07/24/2017 10:17 AM CDT Hospital Encounter [facility] OP Damon Swanson, DO [address] [address] Malignant neoplasm of upper-outer quadrant of right female breast (CMS/HCC) Social History Tobacco Use Types Packs/Day Years Used Date Smoking Tobacco: Never Assessed Comments Unknown Sex and Gender Information Value Date Recorded Sex Assigned at Not on file Legal Sex Female 12:30 PM 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 TB: TB Report ID: [id number] Reading Location: [id number] [EOD] Damon Swanson DO IMG CT PROCEDURES [...] AM T: ??07/25/2017 8:15 AM Report ID: [id number] Reading Location: ??[id number] [EOD] Narrative 07/25/2017 8:18 AM CDT EXAM [...] Kathy Contreras M.D. TB: TB Report ID: [id number] Reading Location: [place] [address] [EOD] Damon Swanson DO IMG CT PROCEDURES Final Resu lt documented in this encounter Visit Diagnoses Diagnosis Malignant neoplasm of upper-outer quadrant of right female breast (HCC) documented in this encounter Care Teams Rubber Stamp Die Inspector Relationship Specialty Start Date End Date Zeke Puente MD [address] [facility] [address] PCP - General 07/10/17 06/11/18 documented as of this encounter
--- OUTSIDE RECORDS SUMMARY | 2024-02-27 03:16 | XMS_ITS | Encounter Summary ---
Author Organization [facility] Address [address] [place] [address] Phone Care Team Providers Care Check Cashier Name Role Phone Annamaria Mosqueda DO Unavailable [phone] Precious Shelton MD Primary Care Provider [phone] Reason for Visit * Reason Comments Follow-up Encounter Details Date Type Department Care Team (Late st Contact Info) Description 06/12/2018 1:00 PM CDT Office Visit [facility] Oncology [address] [place] [phone] Annamaria Mosqueda, DO [facility] [address] Malignant neoplasm of upper-outer quadrant of both [...] on file Legal Sex Female 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 PRECIOUS SHELTON [address] [place] [address] PHONE # [phone] PLEASE CALL FOR AN APPOINTMENT documented in [...] underlying advanced arthritis. She will continue with [id number] medications. 5. Worsening diabetic sensory neuropathy of [...] up; ANNAMARIA MOSQUEDA MD; Clinic Appointment Location: [facility] - [facility]; Future - Lab Draw Appt Request Arm Draw or Central Line Draw? Arm; What is your ordering location? [facility]/B[facility]; Where will this patient receive treatment? [facility]; Future - Clinic Appointment Request Follow up; ANNAMARIA MOSQUEDA MD; Clinic Appointment Location: [facility]; Future - Cancer antigen 15-3; Future - CBC with auto differential; Future - Comprehensive metabolic panel; Future Malignant neoplasm of left breast in female, estrogen receptor negative, unspecified site of breast(CMS/HCC) - Clinic Appointment Request Follow up; ANNAMARIA MOSQUEDA MD; Clinic Appointment Location: [facility] - [facility]ulatory referral [facility]; Future - Lab Draw Appt Request Arm Draw or Central Line Draw? Arm; What is your ordering location? [facility]; Where will this patient receive treatment? [facility]; [facility] - Clinic Appointment Request Follow up; ANNAMARIA MOSQUEDA MD; Clinic Appointment Location: [facility]; Future - Cancer antigen 15-3; [...] 019 documented in this encounter Care Teams Check Cashier Relationship Specialty Start Date End Date Precious Shelton MD [address] [address] PCP - General Family Medicine 06/12/18 12/01/18 Annamaria Mosqueda DO [address] [place] [id number] Medical Oncologist/Property Damage Claims Adjustor Hematology and Oncology 10/25/17 documented as of this encounter
--- OUTSIDE RECORDS SUMMARY | 2024-02-27 03:16 | XMS_ITS | Encounter Summary ---
Author Organization [facility] Healthcare Address [address] [place] [address] Care Team Providers Care Thermodynamics Engineer Name Role Phone Unavailable Primary Care Provider Unavailabl e Encounter Details Date Type Department Care Team (Latest Contact Info) Description 10/18/2016 9:14 PM CDT - 10/19/2016 12:56 AM CDT Hospital Encounter [facility] Rakan Baker, DO [address] [place], [place] [id number] Right lower quadrant pain; Type 2 diabetes mellitus with hyperglycemia (CMS/HCC); Essential (primary) hypertension; Hyperlipidemia; Hypothyroidism; Personal history of malignant neoplasm of breast; Other termite control servicer (current) drug therapy; remote computer terminal operator 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) Social History Tobacco Use Types Packs/Day Years Used Date Smoking Tobacco: Never Assessed Comments Unknown Sex and Gender Information Value Date Recorded Sex Assigned at Not on file Legal Sex Female 12:30 PM CLINICAL PROGRAMMER Gender Identity Not on file Sexual Orientation [...] WBC 4.5(L) 4.6 - 10.2 x10 3/ul RBC 3.70(L) 3.76 - 4.80 x10 6/ul Hemoglobin 11.9 11.0 - 15.0 g/dl Hct 33.4 33.0 - 43.0 % MCV 90.3 80.0 - 97.0 fl MCH 32.2(H) 27.0 - 31.2 pg MCHC 35.6(H) 31.8 - 35.4 g/dl RDW 14.3 11.6 - 14.8 % Plt Count 210 124 - 400 x10 3/ul MPV 10.7(H) 7.4 - 10.4 fl Neut % 63.8 37.0 - 85.0 % Immature Gran % 0.4 0.0 - 3.0 % Lymph % 26.1 5.0 - 45.0 % [place] % 8.4 3.0 - 15.0 % Eos % 0.9 0.0 - 7.0 % Baso % 0.4 0.0 - 2.0 % Absolute Neuts (auto) 2.9 1.7 - 8.7 x10 3/ul Immature Gran # 0.0 0.0 - 0.3 x10 3/ul Absolute Lymphs (auto) 1.2 0.2 - 4.6 x10 3/ul Absolute Monos (auto) 0.4 0.1 - 1.5 x10 3/ul Absolute Eos (auto) 0.0 0.0 - 0.7 x10 3/ul Absolute Basos (auto) 0.0 0.0 - 0.2 x10 3/ul Nucleat RBC Rel Count 0.4 0 - 3 #/100WBC Absolute Nucleated RBC 0.02 x10 3/ul Absolute Neutrophils 2900 200 - 8000 /ul 10/18/2016 10:0 4 PM CDT 10/18/2016 10:13 PM CDT [facility] LAB BLOOD ORDERABLES Debbie l Result Performing Organization Address [facility]/ZIP Co de Phone Number [facility] HISTORICAL RESULTS * (ABNORMAL) T4, free (10/18/2016 10:03 PM CDT) Free T4 0.19(L) 0.93 - 1.70 ng/dL 10/18/2016 10:0 3 PM CDT 10/18/2016 10:13 PM CDT [facility] LAB BLOOD ORDERABLES Debbie l Result [facility] HISTORICAL RESULTS * (ABNORMAL) TSH reflex to free T4 (10/18/2016 10:03 PM CDT) TSH W REFLEX TO FT4 17.13(H) 0.27 - 4.20 uIU/mL Comment:Abnormal TSH result. FT4 has been ordered. 10/18/2016 10:0 3 PM CDT 10/18/2016 10:13 PM CDT [facility] LAB BLOOD ORDERABLES Debbie l Result Performing Organization Address City/[facility]/ZIP Co de Phone Number [facility] HISTORICAL RESULTS * (ABNORMAL) Lipase (10/18/2016 10:03 PM CDT) Lipase 12(L) 13 - 60 U/L 10/18/2016 10:0 3 PM CDT 10/18/2016 10:13 PM CDT [facility] BLOOD ORDERABLES Debbie l Result Performing Organization Address [facility] Co de Phone Number [facility] HISTORICAL RESULTS * (ABNORMAL) Comprehensive metabolic panel [...] U/L ALT 33 0 - 33 U/L Alkaline Phosphatase 51 35 - 104 U/L 10/18/2016 10:0 3 PM CDT 10/18/2016 10:13 PM CDT [facility] LAB BLOOD ORDERABLES Debbie l Result [facility] HISTORICAL RESULTS * (ABNORMAL) Urinalysis, macro and micro (10/18/2016 9:45 PM CDT) Ur Collection Type CLEAN CATCH Urine Color YELLOW YELLOW Urine Clarity Slightly-Pat udy CLEAR Urine Glucose (UA) >=500(H) NORMAL mg/dL Urine Bilirubin NEGATIVE NEGATIVE mg/dl Urine Ketones NEGATIVE NEGATIVE mg/dL Ur Specific [place] 1.018 1.005 - 1.025 Urine Blood NEGATIVE NEGATIVE mg/dl Urine pH 7.0 5.0 - 8.0 Urine Protein 100(H) NEGATIVE mg/dL Urine Urobilinogen 4(H) NORMAL mg/dL Urine Nitrite NEGATIVE NEGATIVE Ur Leukocyte Esterase NEGATIVE NEGATIVE Bernadette/ul Ur Microscopic Review Indicated or Ordered Urine RBC 2 0 - 2 /HPF Urine WBC 2 0 - 2 /HPF Urine Mucus RARE /LPF Ur Squamous Epith Cells Rare /HPF 10/18/2016 9:45 PM CDT 10/18/2016 9:59 PM CDT Narrative [facility] HISTORICAL RESULTS - 10/18/2016 10:14 PM CDT [facility] LAB URINE ORDERABLES Debbie l Result [facility] HISTORICAL RESULTS * CT Abdomen Pelvis W [...] history of malignant neoplasm of breast Other termite control servicer (current) drug therapy remote computer terminal operator 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) (HCC) documented in this encounter
--- OUTSIDE RECORDS SUMMARY | 2024-02-27 03:16 | XMS_ITS | Encounter Summary ---
Author Organization [facility] Address [address] [place] [address] Phone Care Team Providers Care Construction Area Manager Name Role Phone Damon SwansonTesha DO Unavailable [phone] Rene Shelton MD Primary Care Provider [phone] Encounter Details Date Type Department Care Team (Late st Contact Info) Description 06/12/2018 12:30 PM CDT Lab [facility] Oncology [address] [place] [phone] Malignant neoplasm of upper-outer quadrant of both [...] on file Legal Sex Female 12:30 PM CASKET 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
--- OUTSIDE RECORDS SUMMARY | 2024-02-27 03:16 | XMS_ITS | Encounter Summary ---
Author Organization [facility] Healthcare Address [address] [place] [address] Care Team Providers Care Stripe Matcher Name Role Phone Unavailable Primary Care Provider Unavailabl e Encounter Details Date Type Department Care Team (Latest Contact Info) Description 08/01/2016 2:39 PM CDT Hospital Encounter [facility] Mane Aguilar MD [address] [place] [id number] Right upper quadrant pain; Right lower quadrant pain Social History Tobacco Use Types Packs/Day Years Used Date Smoking Tobacco: Never Assessed Comments Unknown Sex and Gender Information Value Date Recorded Sex Assigned at Not on file Legal Sex Female 12:30 PM DISPLAY TRIMMER Gender Identity Not on file Sexual Orientation [...] Following the intravenous administration of 100 mL [id number] intravenous contrast via the right antecubital vein [...]
--- OUTSIDE RECORDS SUMMARY | 2024-02-27 03:16 | XMS_ITS | Encounter Summary ---
Author Organization [facility] Healthcare Address [address] [place] [address] Care Team Providers Care Mental Health Program Specialist Name Role Phone Unavailable Primary Care Provider Unavailabl e Encounter Details Date Type Department Care Team (Latest Contact Info) Description 08/30/2016 10:30 PM CDT - 08/31/2016 6:24 PM CDT [facility] Buenrostro Lower abdominal pain; Essential (primary) hypertension; Type 2 diabetes mellitus without complications (CMS/HCC); Hypothyroidism; Obesity; Hyperlipidemia; Low back pain; Bipolar disorder (CMS/HCC); Schizophrenia (CMS/HCC); Body mass index (BMI) of 36.0-36.9 in adult; jail 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); 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 Negative: Repeat in 4-6 hours as indicated. 08/31/2016 6:24 AM CDT 08/31/2016 7:26 AM CDT us Quiana Kaiden Buenrostro LAB BLOOD ORDERABLES Final Res ult [facility] [employer] HISTORICAL RESULTS * (ABNORMAL) CBC with auto differential (08/31/2016 6:24 AM CDT) WBC 3.5(L) 4.6 - 10.2 x10 3/ul 08/31/2016 8:00 AM CDT [facility] HISTORICAL RESULTS RBC 3.77 3.76 - 4.80 x10 6/ul 08/31/2016 8:00 AM CDT [facility] HISTORICAL RESULTS Hemoglobin 11.5 11.0 - 15.0 g/dl 08/31/2016 8:00 AM CDT [facility] HISTORICAL RESULTS Hct 33.7 33.0 - 43.0 % 08/31/2016 8:00 AM T [facility] HISTORICAL RESULTS MCV 89.4 80.0 - 97.0 fl 08/31/2016 8:00 AM CDT [facility] HISTORICAL RESULTS MCH 30.5 27.0 - 31.2 pg 08/31/2016 8:00 AM CDT [facility] HISTORICAL RESULTS MCHC 34.1 31.8 - 35.4 g/dl 08/31/2016 8:00 AM CDT [facility] HISTORICAL RESULTS RDW 14.2 11.6 - 14.8 % 08/31/2016 8:00 AM T [facility] HISTORICAL RESULTS Plt Count 203 124 - 400 x10 3/ul 08/31/2016 8:00 AM CDT [facility] HISTORICAL RESULTS MPV 10.4 7.4 - 10.4 fl 08/31/2016 8:00 AM CDT [facility] HISTORICAL RESULTS Neut % 50.5 37.0 - 85.0 % 08/31/2016 8:00 AM CDT [facility] HISTORICAL RESULTS Immature Gran % 0.6 0.0 - 3.0 % 08/31/2016 8:00 AM CDT [facility] HISTORICAL RESULTS Lymph % 39.8 5.0 - 45.0 % 08/31/2016 8:00 AM CDT [facility] HISTORICAL RESULTS Shoshone % 7.1 3.0 - 15.0 % Eos % 1.1 0.0 - 7.0 % Baso % 0.9 0.0 - 2.0 % Absolute Neuts (auto) 1.8 1.7 - 8.7 [...] AM CDT 08/31/2016 7:26 AM T Narrative [facility] HISTORICAL RESULTS - 08/31/2016 8:00 AM CDT us Quiana Buenrostro LAB BLOOD ORDERABLES Final Res ult [facility] HISTORICAL RESULTS * (ABNORMAL) Basic metabolic panel (08/31/2016 6:24 AM [facility]) Sodium 136 135 - 145 [...] dialysis @ Est GFR (Cockcroft-G) 103 ml/MIN Comment: Estimated GFR(Cockroft-Gault)is used to calculate patient medication dosage Calcium 8.8 8.8 - 10.2 mg/dL 08/31/2016 6:24 AM CDT 08/31/2016 7:26 AM CDT [facility]ory[facility] Porter LAB BLOOD ORDERABLES Final Res ult Performing Organization Address [facility] de Phone Number [facility] HISTORICAL RESULTS * (ABNORMAL) Hemoglobin A1c (08/31/2016 6:24 AM CDT) Pathologist [facility] Hemoglobin A1c % 10.6(H) 4.8 - 5.9 % Comment: [place] [employer] recommends that the goal of therapy should be an A1C hemoglobin of <7%. Reevaluate the treatment regimen in patients with an A1C >8%. 08/31/2016 6:24 AM CDT 08/31/2016 7:26 AM CDT ExplorysTesha Doodle [facility] BLOOD ORDERABLES Final Res ult Performing Organization Address [facility] de Phone Number [facility] HISTORICAL RESULTS * Lipase (08/30/2016 4:46 PM CDT) Lipase 14 13 - 60 U/L 08/30/2016 4:46 PM CDT 08/30/2016 5:01 PM CDT us Ya GONZALEZ LAB BLOOD ORDERABLES Final Result [facility] HISTORICAL RESULTS * Lactate (08/30/2016 4:46 PM CDT) L-Lactate 1.4 mmol/L Comment:Lactate Reference Ra nge: 0.5 - 2.2 mmol/L 08/30/2016 4:46 PM CDT 08/30/2016 5:01 PM CDT Ya GONZALEZ LAB BLOOD ORDERABLES Final Result Performing Organization Address [facility] de Phone Number [facility] HISTORICAL RESULTS * (ABNORMAL) Comprehensive metabolic panel (08/30/2016 4:46 PM CDT) Pathologist [facility] Sodium 135 135 - 145 mmol/L Potassium 3.8 3.3 - 5.1 mmol/L Chloride [...] 3.5 - 5.2 g/dL 08/30/2016 5:44 PM [facility] HISTORICAL RESULTS Globulin 3.3 2.3 - 3.5 gm/dL Albumin/Globulin Ratio 1.3 1.1 - 1.8 Total Bilirubin 1.0 0.0 - 1.2 mg/dL AST 36(H) 0 - 32 U/L Comment: SLIGHTLY HEMOLYZED: Hemolysis interferes with the above test. ALT 33 0 - 33 U/L Alkaline Phosphatase 56 35 - 104 U/L 08/30/2016 4:46 PM CDT 08/30/2016 5:01 PM CDT us Ya GONZALEZ LAB BLOOD ORDERABLES Final Result [facility] HISTORICAL RESULTS * (ABNORMAL) CBC with auto differential (08/30/2016 4:46 PM CDT) WBC 3.5(L) 4.6 - 10.2 x10 3/ul RBC 3.45(L) 3.76 - 4.80 x10 6/ul Hemoglobin 10.8(L) 11.0 - 15.0 g/dl Hct 30.9(L) 33.0 - 43.0 % MCV 89.6 80.0 - 97.0 fl MCH 31.3(H) 27.0 - 31.2 pg MCHC 35.0 31.8 - 35.4 g/dl RDW 14.2 11.6 - 14.8 % Plt Count 201 124 - 400 x10 3/ul MPV 10.2 7.4 - 10.4 fl Neut % 60.1 37.0 - 85.0 % Immature Gran % 0.3 0.0 - 3.0 % Lymph % 30.4 5.0 - 45.0 % Shoshone % 7.7 3.0 - 15.0 % Eos [...] Nucleated RBC 0.00 x10 3/ul Absolute Neutrophils 2100 200 - 8000 /ul 08/30/2016 4:46 PM CDT 08/30/2016 5:01 PM CDT us Ya GONZALEZ LAB BLOOD ORDERABLES Final Result [facility] HISTORICAL RESULTS * (ABNORMAL) Urinalysis, macro and micro (08/30/2016 4:45 PM CDT) Ur Collection Type CLEAN CATCH Urine Color YELLOW YELLOW Urine Clarity Slightly-Pat udy CLEAR Urine Glucose (UA) >=500(H) NORMAL mg/dL Urine Bilirubin NEGATIVE NEGATIVE mg/dl Urine Ketones NEGATIVE NEGATIVE mg/dL Ur Specific Williams 1.025 1.005 - 1.025 Urine Blood 0.03(H) NEGATIVE mg/dl Urine pH 6.0 5.0 - 8.0 Urine Protein NEGATIVE NEGATIVE mg/dL Urine Urobilinogen 4(H) NORMAL mg/dL Urine Nitrite NEGATIVE NEGATIVE Ur Leukocyte Esterase NEGATIVE NEGATIVE Bernadette/ul Ur Microscopic Review Indicated or Ordered Urine RBC <1 0 - 2 /HPF Urine WBC 1 0 - 2 /HPF Urine Mucus RARE /LPF Ur Squamous Epith Cells Few /HPF 08/30/2016 4:45 PM CDT 08/30/2016 5:03 PM CDT Narrative [facility] HISTORICAL RESULTS - 08/30/2016 5:11 PM CDT us Ya GONZALEZ LAB URINE ORDERABLES Final Result [facility] HISTORICAL RESULTS * CT Abdomen Pelvis W [...] Tenorio M.D. CN:brian 08:35 PM 08:35 PM [facility] [EOD] Narrative 08/30/2016 8:38 PM CDT EXAMINATION: [...] Tenorio M.D. 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
--- OUTSIDE RECORDS SUMMARY | 2024-02-27 03:16 | XMS_ITS | Encounter Summary ---
Author Organization [facility] Healthcare Address [address] [place] [address] Care Team Providers Care Press And Blow Machine Tender Name Role Phone Unavailable Primary Care Provider Unavailabl e Encounter Details Date Type Department Care Team (Latest Contact Info) Description 08/22/2013 11:30 AM CDT - 08/23/2013 12:05 PM CDT Hospital Encounter [facility] Crow Payne MD [address] [place] [address] Incisional hernia; Morbid obesity (HCC); Essential hypertension; Hypothyroidism; Pure hypercholesterolemi a; Type 2 or unspecified type diabetes mellitus; Other depressive disorder; Body mass index 35.0-35.9, adult Social History Tobacco Use Types Packs/Day Years Used Date Smoking Tobacco: Never Assessed Comments Unknown Sex and Gender Information Value Date Recorded Sex Assigned at Not on file Legal Sex Female 12:30 PM BOX OFFICE 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 Gender Identity Not on file Sexual [...] Specimen Type Oximeter 08/23/2013 8:16 AM CDT [facility] HISTORICAL RESULTS Puncture Site FINGER 08/23/2013 8:16 AM T [facility] HISTORICAL RESULTS O2 Sat Pulse Oximetry 97.0 >=90.0 % 08/23/2013 8:16 AM CDT [facility] HISTORICAL RESULTS FiO2 21.0 % 08/23/2013 8:16 AM T [facility] HISTORICAL RESULTS [employer] 08/23/2013 8:16 AM CDT [facility] HISTORICAL RESULTS 08/23/2013 7:38 AM CDT 08/23/2013 7:38 AM CDT us Crow Payne MD LAB BLOOD ORDERABLES Final Result [facility] HISTORICAL RESULTS documented in this encounter Visit [...]
--- OUTSIDE RECORDS SUMMARY | 2024-02-27 03:16 | XMS_ITS | Encounter Summary ---
Author Organization [facility] Address [address] [place] [address] Phone Care Team Providers Care Kiosk Sales Representative Name Role Phone Zeke Puente MD Primary Care Provider [phone] Annamaria Mosqueda DO Unavailable [phone] Reason for Visit * Reason Comments Follow-up Encounter Details Date Type Department Care Team (Late st Contact Info) Description 05/15/2018 9:15 AM FIELD COUNSEL Office Visit [facility] Oncology [address] [place] [phone] Annamaria Mosqueda, DO [address] [address] Malignant neoplasm of upper-outer quadrant of both [...] file Legal Sex Female 12:30 PM FIELD COUNSEL Gender Identity Not on file Sexual Orientation Not on file documented as of this encounter Last Filed Vital Signs Vital Sign Reading Time Taken Comments Blood Pressure 179/83 05/15/2018 9:44 AM FIELD COUNSEL Pulse 89 05/15/2018 9:44 AM FIELD COUNSEL Temperature 36.4 ??C (97.5 ??F) 05/15/2018 9:44 AM CS T Respiratory Rate 24 05/15/2018 9:44 AM FIELD COUNSEL Oxygen Saturation 99% 05/15/2018 9:44 AM FIELD COUNSEL Inhaled Oxygen Concentration - - Weight 93.4 kg (206 lb) 05/15/2018 9:44 AM FIELD COUNSEL Height 154.9 cm (5' 1 ) 05/15/2018 9:44 AM FIELD COUNSEL Body Mass Index 38.92 05/15/2018 9:44 AM FIELD COUNSEL documented in this encounter Ordered Prescriptions Prescription [...] documented in this encounter Progress Notes * nAnamaria Mosqueda, DO - 05/15/2018 9:15 AM CST [...] underlying advanced arthritis. She will continue with [id number] medications. 5. Worsening sensory neuropathy of the [...] up; ANNAMARIA MOSQUEDA MD; Clinic Appointment Location: [facility]; Future - Comprehensive [...] up; ANNAMARIA MOSQUEDA MD; Clinic Appointment Location: [facility]; Future - Comprehensive [...] Final CA 15-3 is normal/stable at 38. D COUNSEL documented in this encounter Plan of Treatment [...] AM CDT Performed at: ??01 - [facility] [address], [place], [place] [id number] Veneer Gluer: Jc Boyer PhD, Phone: ??[phone] us Annamaria Mosqueda DO LAB BLOOD ORDERABLES [...] 06/12/2018 documented in this encounter Care Teams Kiosk Sales Representative Relationship Specialty Start Date End Date Zeke Puente MD [address] [place] [address] PCP - General 07/10/17 06/11/18 Annamaria Mosqueda DO [address] [place] [address] Medical Oncologist/Spiritual Minister Hematology and Oncology 10/25/17 documented as of this encounter
--- OUTSIDE RECORDS SUMMARY | 2024-02-27 03:16 | XMS_ITS | Encounter Summary ---
Author Organization [facility] Address [address] [place] [address] Phone Care Team Providers Care Railroad Car Repair Supervisor Name Role Phone Zeke Puente MD Primary Care Provider [phone] Damon Swanson DO Unavailable [phone] Encounter Details Date Type Department Care Team (Late st Contact Info) Description 04/30/2018 Telephone [facility] On[facility] [address] [place] [address] Erica Bassett BSN Social History Tobacco Use Types Packs/Day Years Used Date Smoking Tobacco: Never Smokeless Tobacco: Never Alcohol Use Standard Drinks/Week Comments No 0 (1 standard drink = 0.6 oz pur e alcohol) Comments Unknown Sex and Gender Information Value Date Recorded Sex Assigned at Not on file Legal Sex Female 12:30 PM PHOTO LAB MANAGER Gender Identity Not on file Sexual Orientation Not on file documented as of this encounter Miscellaneous Notes * Telephone Encounter - Erica Bassett BSN - 04/30/2018 3:22 PM PHOTO LAB MANAGER Called patient and LVM regarding rescheduling missed appointments O LAB MANAGER documented in this encounter Plan of Treatment Not on file documented as of this encounter Visit Diagnoses Not on filedocumented in this encounter Care Teams Railroad Car Repair Supervisor Relationship Specialty Start Date End Date Zeke Puente MD [address] [place] [address] PCP - General 07/10/17 06/11/18 Damon Swanson DO [address] [place] [address] Medical Oncologist/Auto Glass Technician Hematology and Oncology 10/25/17 documented as of this encounter
--- OUTSIDE RECORDS SUMMARY | 2024-02-27 03:16 | XMS_ITS | Encounter Summary ---
Author Organization [facility] Healthcare Address [address] [place] [address] Care Team Providers Care Burn Nurse Name Role Phone Unavailable Primary Care Provider Unavailabl e Encounter Details Date Type Department Care Team (Latest Contact Info) Description 05/02/2013 8:26 AM VP [employer]ITAL [employer]ETING Hospital Encounter [facility] OP Damon Swanson, DO [facility] [id number] Malignant neoplasm of breast (female) (HCC); Observation for suspected malignant neoplasm Social History Tobacco Use Types Packs/Day Years Used Date Smoking Tobacco: Never Assessed Comments Unknown Sex and Gender Information Value Date Recorded Sex Assigned at Not on file Legal Sex Female 12:30 PM VP DIGITAL MARKETING Gender Identity Not on file Sexual Orientation Not on file documented as of this encounter Plan of Treatment Not on file documented as of this encounter Procedures Procedure Name Priority Date/Time Associated Diagnosis Comments CT CHEST W CONTRAST Routine 05/02/2013 9 :[address] [address] ABDOMEN W CONTRAST Routine 05/02/2013 9:00 AM VP D[employer]ITAL MARKETING documented in this encounter Results * CT Chest W Contrast (05/02/2013 9:30 AM VP [employer] MARKETING) Anatomical Region Laterality Modality Body N/A Computed Tomogra phy 05/02/2013 9:30 AM VP [employer] MARKETING Impressions 05/02/2013 12:52 PM VP [employer] MARKETING ?? 1. ??No evidence of metastatic disease [...] Miguel M.D. CH:giuliana 10:22 AM 10:52 AM [facility] [EOD] Narrative 05/02/2013 12:52 PM VP [employer]ITAL MARKETING EXAMINATION: ??CT chest with contrast HISTORY: ??Breast [...] Miguel M.D. CH:giuliana 10:22 AM 10:52 AM [facility] [EOD] us Damon Swanson DO IMG CT PROCEDURES Final Resu lt * CT Abdomen W Contrast (05/02/2013 9:00 AM VP [employer]) Anatomical Region Laterality Modality Body N/A Computed Tomogra phy 05/02/2013 9:00 AM VP [employer] MARKETING Impressions 05/02/2013 12:51 PM VP [employer] ?? 1. ??No evidence of metastatic disease within the abdomen. 2. ??Fat-containing supraumbilical ventral and small bowel containing periumbilical hernias as above without obstruction. 3. ??See separate dictated CT the chest. THIS IS AN ELECTRONICALLY VERIFIED REPORT 05/02/2013 11:48 AM: ??Martinez Miguel M.D. Martinez Miguel M.D. CH:giuliana 10:15 AM 10:45 AM [facility] [EOD] Narrative 05/02/2013 12:51 PM VP [employer] EXAMINATION: ??CT abdomen with contrast HISTORY: ??Breast [...] Miguel M.D. CH:giuliana 10:15 AM 10:45 AM [facility] [EOD] Damon Swanson DO IMG CT PROCEDURES Final Resu lt documented in this encounter Visit Diagnoses Diagnosis Malignant neoplasm of breast (female) (HCC) Malignant neoplasm of breast (female), unspecified site Observation for suspected malignant neoplasm documented in this encounter
--- OUTSIDE RECORDS SUMMARY | 2024-02-27 03:16 | XMS_ITS | Encounter Summary ---
Author Organization [facility] Address [address] [place] [address] Care Team Providers Care Washateria Attendant Name Role Phone Damon Swanson DO Unavailable [phone] Rene Shelton MD Primary Care Provider [phone] Reason for Visit * Reason Comments tingling and burning sensations discuss medications pt seems to be unsur e of what medications she takes. Encounter Details Date Type Department Care Team (Latest Contact Info) Description 06/21/2018 12:45 PM CDT Office Visit [facility] Family Medicine [address] [place] [address] Rene Shelton MD [address] [place] [address] Polyneuropathy associated with underlying disease (CMS/HCC) (Primary [...] on file Legal Sex Female 12:30 PM SENIOR PRODUCTION PLANNER Gender Identity Not on file Sexual Orientation [...] this visit: Polyneuropathy associated with underlying disease ([facility]) (G63) (Primary) Comments: stop gabapentin. lyrica 50 mg bid Essential hypertension (I10) Comments: refill meds. Controlled type 2 diabetes mellitus with diabetic peripheral angiopathy without gangrene, with long-term current use of insulin ([facility]) (E11.51, Z79.4) Comments: refill meds. check hem [...] gangrene, with long-term current use of insulin ([facility]) documented in this encounter Results * (ABNORMAL) Hemoglobin A1c (06/21/2018 2:10 PM CDT) Hemoglobin A1c % 13.9(H) 4.0 - 5.6 % [facility] Comment: ADA 2016 GUIDELINES: ??Initial Diagnostic Criteria ? HbA1c Result: ?Interpretation: ?<5.7% ? Normal ?5.7-6.4% ?At risk for diabetes mellitus ?>=6.5% ?Consistent with diabetes mellitus ??Diabetes monitoring ? Target value (ADA Recommended) ?? <7% Blood specimen (specimen) 06/21/2018 2:10 PM CDT 06/21/2018 2:35 PM CDT Narrative Resulting Agency Comment CLI Rene Shelton MD LAB BLOOD ORDERABLES Final Resu lt Performing Organization Address [facility] de Phone Number [address] [phone] * Magnesium (06/21/2018 2:10 PM CDT) Pathologist [facility] Magnesium 1.6 1.6 - 2.6 mg/dL [facility] Comment: Magnesium sulfate therapy: ??3.0-9.1 mg/dL Blood specimen (specimen) 06/21/2018 2:10 PM CDT 06/21/2018 2:35 PM CDT Narrative Resulting Agency Comment CLI Rene Shelton MD LAB BLOOD ORDERABLES Final Resu lt Performing Organization Address [facility] de Phone Number [address] [phone] documented in this encounter Visit Diagnoses Diagnosis [...] documented as of this encounter Care Teams Washateria Attendant Relationship Specialty Start Date End Date Rene Shelton MD [address] [phone] PCP - General Family Medicine 06/12/18 12/01/18 Damon Swanson DO [facility] [phone] Medical Oncologist/Equipment Washer Hematology and Oncology 10/25/17 documented as of this encounter
--- OUTSIDE RECORDS SUMMARY | 2024-02-27 03:16 | XMS_ITS | Encounter Summary ---
Author Organization [facility] Healthcare Address [address] [place] [address] Care Team Providers Care Nurse'S Assistant Name Role Phone Unavailable Primary Care Provider Unavailabl e Encounter Details Date Type Department Care Team (Latest Contact Info) Description 08/16/2013 12:43 PM CDT Hospital Encounter [facility] OP Crow Payne MD [address] [place] [address] Incisional hernia; Pre-operative cardiovascular examination Social History Tobacco Use Types Packs/Day Years Used Date Smoking Tobacco: Never Assessed Comments Unknown Sex and Gender Information Value Date Recorded Sex Assigned at Not on file Legal Sex Female 12:30 PM BANK PRESIDENT Gender Identity Not on file Sexual Orientation Not on file documented as of this encounter Plan of Treatment Not on file documented as of this encounter Visit Diagnoses Diagnosis Incisional hernia Incisional hernia without mention of obstruction or gangrene Pre-operative cardiovascular examination documented in this encounter
--- OUTSIDE RECORDS SUMMARY | 2024-02-27 03:16 | XMS_ITS | Encounter Summary ---
Author Organization [facility] Healthcare Address [address] [place] [address] Care Team Providers Care Filter Changer Name Role Phone Unavailable Primary Care Provider Unavailabl e Encounter Details Date Type Department Care Team (Latest Contact Info) Description 08/01/2013 8:45 AM CDT Hospital Encounter [facility] OP Damon Swanson, DO [address] [phone] Malignant neoplasm of breast (female) (HCC) Social History Tobacco Use Types Packs/Day Years Used Date Smoking Tobacco: Never Assessed Comments Unknown Sex and Gender Information Value Date Recorded Sex Assigned at Not on file Legal Sex Female 12:30 PM TRANSFORMER ASSEMBLER Gender Identity Not on file Sexual [...] Miguel M.D. [email or web address] 04:44 PM 05:02 PM [facility] [EOD] Narrative 08/01/2013 10:15 PM CDT EXAMINATION: [...] Miguel M.D. [email or web address]:giuliana 04:44 PM 05:02 PM [facility] [EOD] us Damon Swanson DO [...] Miguel M.D. CH:giuliana 04:38 PM 04:59 PM [facility] [EOD] Narrative 08/01/2013 10:15 PM CDT EXAMINATION: [...] Miguel M.D. CH:giuliana 04:38 PM 04:59 PM [facility] [EOD] Damon Swanson DO IMG CT PROCEDURES Final Resu lt documented in this encounter Visit Diagnoses Diagnosis Malignant neoplasm of breast (female) (HCC) Malignant neoplasm of breast (female), unspecified site documented in this encounter
--- OUTSIDE RECORDS SUMMARY | 2024-02-27 03:16 | XMS_ITS | Encounter Summary ---
Author Organization [facility] Healthcare Address [address] [place] [address] Care Team Providers Care Pack Worker Supervisor Name Role Phone Unavailable Primary Care Provider Unavailabl e Encounter Details Date Type Department Care Team (Latest Contact Info) Description 01/17/2017 3:14 PM COMPACT ASSEMBLER Hospital Encounter [facility] OP Damon Swanson, DO [address] [id number] Dizziness and giddiness; Personal history of malignant neoplasm of breast; Encounter for follow-up examination after completed treatment for malignant neoplasm Social History Tobacco Use Types Packs/Day Years Used Date Smoking Tobacco: Never Assessed Comments Unknown Sex and Gender Information Value Date Recorded Sex Assigned at Not on file Legal Sex Female 12:30 PM COMPACT ASSEMBLER Gender Identity Not on file Sexual Orientation Not on file documented as of this encounter Plan of Treatment Not on file documented as of this encounter Procedures Procedure Name Priority Date/Time Associated Diagnosis Comments CT ABDOMEN W CONTRAST Routine 01/17/2017 12:[address] CHEST W CONTRAST Routine 01/17/2017 1 2:[address] HEAD W WO CONTRAST Routine 01/17/2017 12:00 AM COMPACT ASSEMBLER documented in this encounter Results * CT Abdomen W Contrast (01/17/2017 12:00 AM COMPACT ASSEMBLER) Anatomical Region Laterality Modality Body N/A Computed Tomogra phy 01/17/2017 Impressions 01/17/2017 4:39 PM COMPACT ASSEMBLER ?? 1. ??Fluid collection seen within the [...] PM MON [EOD] Narrative 01/17/2017 4:39 PM COMPACT ASSEMBLER EXAMINATION: ??CT chest, and abdomen with contrast. [...] Head W WO Contrast (01/17/2017 12:00 AM COMPACT ASSEMBLER) Anatomical Region Laterality Modality Head and Neck N/A Computed Tomogra phy 01/17/2017 Impressions 01/17/2017 4:43 PM COMPACT ASSEMBLER ?? 1. ??No acute intracranial hemorrhage, midline [...] PM MON [EOD] Narrative 01/17/2017 4:43 PM COMPACT ASSEMBLER EXAMINATION: ??CT head with and without contrast. [...] CT Chest W Contrast (01/17/2017 12:00 AM COMPACT ASSEMBLER) Anatomical Region Laterality Modality Body N/A Computed Tomogra phy 01/17/2017 Impressions 01/17/2017 4:39 PM COMPACT ASSEMBLER ?? 1. ??Fluid collection seen within the [...] PM MON [EOD] Narrative 01/17/2017 4:39 PM COMPACT ASSEMBLER EXAMINATION: ??CT chest and abdomen with contrast. [...]
--- OUTSIDE RECORDS SUMMARY | 2024-02-27 03:16 | XMS_ITS | Encounter Summary ---
Author Organization [facility] Healthcare Address [address] [place] [address] Care Team Providers Care Tumbling Machine Operator Name Role Phone Unavailable Primary Care Provider Unavailabl e Encounter Details Date Type Department Care Team (Latest Contact Info) Description 08/22/2014 9:39 AM CDT Hospital Encounter [facility] OP Damon Swanson, DO [facility] [id number] Malignant neoplasm of breast (female) (HCC); Observation for suspected malignant neoplasm Social History Tobacco Use Types Packs/Day Years Used Date Smoking Tobacco: Never Assessed Comments Unknown Sex and Gender Information Value Date Recorded Sex Assigned at Not on file Legal Sex Female 12:[address]NAGER Gender Identity Not on file Sexual [...]
--- OUTSIDE RECORDS SUMMARY | 2024-02-27 03:16 | XMS_ITS | Encounter Summary ---
Author Organization [facility] Healthcare Address [address] [place] [address] Care Team Providers Care Pest Control Pilot Name Role Phone Zeke Puente MD Primary Care Provider [phone] Damon Swanson DO Unavailable Encounter Details Date Type Department Care Team (Latest Contact Info) Description 04/11/2018 11:27 AM EXECUTIVE PERSONAL ASSISTANT - 04/11/2018 6:23 PM EXECUTIVE PERSONAL ASSISTANT Hospital Encounter [address] [address] Discharge Disposition: Discharge to home or self care Social History Tobacco Use Types Packs/Day Years Used Date Smoking Tobacco: Never Smokeless Tobacco: Never Alcohol Use Standard Drinks/Week Comments No 0 (1 standard drink = 0.6 oz pur e alcohol) Comments Unknown Sex and Gender Information Value Date Recorded Sex Assigned at Not on file Legal Sex Female 12:30 PM EXECUTIVE PERSONAL ASSISTANT Gender Identity Not on file Sexual Orientation Not on file documented as of this encounter Last Filed Vital Signs Vital Sign Reading Time Taken Comments Blood Pressure 159/119 04/11/2018 11:32 AM EXECUTIVE PERSONAL ASSISTANT Pulse 64 04/11/2018 11:32 AM EXECUTIVE PERSONAL ASSISTANT Temperature 36.7 ??C (98 ??F) 04/11/2018 11:32 AM EXECUTIVE PERSONAL ASSISTANT Respiratory Rate - - Oxygen Saturation 96% 04/11/2018 11:32 AM EXECUTIVE PERSONAL ASSISTANT Inhaled Oxygen Concentration - - Weight 90.7 kg (200 lb) 04/11/2018 11:32 AM EXECUTIVE PERSONAL ASSISTANT Height 157.5 cm (5' 2 ) 04/11/2018 11:32 AM EXECUTIVE PERSONAL ASSISTANT Body Mass Index 36.58 04/11/2018 11:32 AM EXECUTIVE PERSONAL ASSISTANT documented in this encounter Medications at Time [...] WITH AUTO DIFFERENTIAL Routine 04/11/2018 1:31 PM EXECUTIVE PERSONAL ASSISTANT B-TYPE NATRIURETIC PEPTIDE Routine 04/11/2018 1:31 PM EXECUTIVE PERSONAL ASSISTANT COMPREHENSIVE METABOLIC PANEL Routine 04/11/2018 1:31 PM EXECUTIVE PERSONAL ASSISTANT XR CHEST 1 VIEW Routine 04/11/2018 1:15 PM EXECUTIVE PERSONAL ASSISTANT XR ABDOMEN ERECT AND OR DECUBITS 2 VIEWS Routine 04/11/2018 12:00 AM EXECUTIVE PERSONAL ASSISTANT US VEIN DUPLEX LOWER EXTREMITY BILATERAL COMPLETE Routine 04/11/2018 12:00 AM EXECUTIVE PERSONAL ASSISTANT documented in this encounter Results * (ABNORMAL) Comprehensive metabolic panel (04/11/2018 1:31 PM EXECUTIVE PERSONAL ASSISTANT) Sodium 137 135 - 145 mmol/L Potassium 3.3 3.3 - 5.1 mmol/L Chloride 93(L) 96 - 108 mmol/L Carbon Dioxide 32 22 - 32 mmol/L Anion Gap 12 7 - 16 Glucose 290(H) 70 - 100 mg/dL BUN 18 8 - 23 mg/dL Creatinine 0.7 0.5 [...] dosage Calcium 9.2 8.8 - 10.2 mg/dL Total Protein 7.6 6.4 - 8.3 g/dL Albumin 4.2 3.5 - 5.2 g/dL Globulin 3.4 2.3 - 3.5 gm/dL Albumin/Globulin Ratio 1.2 1.1 - 1.8 Total Bilirubin 1.0 0.0 - 1.2 mg/dL AST 26 0 - 32 U/L ALT 18 0 - 33 U/L Alkaline Phosphatase 53 35 - 104 U/L 04/11/2018 1:31 PM EXECUTIVE PERSONAL ASSISTANT 04/11/2018 1:34 PM EXECUTIVE PERSONAL ASSISTANT us Tomi GONZALEZ LAB BLOOD ORDERABLES Fi nal Result [facility] HISTORICAL RESULTS * (ABNORMAL) CBC with auto differential (04/11/2018 1:31 PM EXECUTIVE PERSONAL ASSISTANT) WBC 4.4 3.8 - 9.9 X10 3/ul 04/11/2018 1:39 PM [facility] HIST[facility] RBC 3.72(L) 3.90 - 5.20 x10 6/ul Hemoglobin 11.2(L) 11.9 - 15.5 g/dL Hct 33.6(L) 35.6 - 45.5 % MCV 90.3 81.3 - 96.4 fl MCH 30.1 27.1 - 33.3 pg 04/11/2018 1:39 PM [facility] HISTORICAL RESULTS MCHC 33.3 32.3 - 35.7 g/dl 04/11/2018 1:39 PM [facility] HISTORICAL RESULTS RDW 14.0 11.1 - 14.9 % 04/11/2018 1:39 PM [facility] HISTORICAL RESULTS Plt Count 175 150 - 400 x10 3/ul 04/11/2018 1:39 PM [facility] HISTORICAL RESULTS MPV 10.7 9.1 - 12.3 fl 04/11/2018 1:39 PM [facility] HISTORICAL RESULTS Neut % 69.1 % 04/11/2018 1:39 PM [facility] HISTORICAL RESULTS Immature Gran % 0.2 % 9 1:39 PM [facility] HISTORICAL RESULTS Lymph % 21.7 % 04/11/2018 1:39 PM [facility] HISTORICAL RESULTS [place] % 7.1 % 04/11/2018 1:39 PM [facility] HISTORICAL RESULTS Eos % 1.4 % 04/11/2018 1:39 PM [facility] HIST[facility]ICAL RESULTS Baso % 0.5 % 04/11/2018 1:39 PM [facility] HIST[facility]ICAL RESULTS Absolute Neuts (auto) 3.0 1.7 - 6.5 x10 3/ul 04/11/2018 1:39 PM [facility] HISTORICAL RESULTS Immature Gran # 0.0 0.0 - 0.1 x10 3/ul 04/11/2018 1:39 PM EXECUTIVE PERSONAL ASSISTANT [facility] HISTORICAL RESULTS Absolute Lymphs (auto) 1.0 0.8 - 3.3 x10 3/ul 04/11/2018 1:39 PM EXECUTIVE PERSONAL ASSISTANT [facility] HISTORICAL RESULTS Absolute Monos (auto) 0.3 0.2 - 0.8 x10 3/ul 04/11/2018 1:39 PM EXECUTIVE PERSONAL ASSISTANT [facility] HISTORICAL RESULTS Absolute Eos (auto) 0.1 0.0 - 0.5 x10 3/ul 04/11/2018 1:39 PM EXECUTIVE PERSONAL ASSISTANT [facility] HISTORICAL RESULTS Absolute Basos (auto) 0.0 0.0 - 0.1 x10 3/ul Nucleat RBC Rel Count 0.0 #/100WBC Absolute Nucleated RBC 0.00 0.00 - 0.01 x10 3/ul 04/11/2018 1:39 PM EXECUTIVE PERSONAL ASSISTANT [facility] HISTORICAL RESULTS Absolute Neutrophils 3000 200 - 8000 /ul 04/11/2018 1:31 PM EXECUTIVE PERSONAL ASSISTANT 04/11/2018 1:34 PM [facility] Tomi GONZALEZ LAB BLOOD ORDERABLES Fi nal Result [facility] HISTORICAL RESULTS * B-type natriuretic peptide (04/11/2018 1:31 PM [facility]) B-Natriuretic Peptide 23 0 - 100 pg/mL 04/11/2018 2:16 PM EXECUTIVE PERSONAL ASSISTANT [facility] HISTORICAL RESULTS Comment: B Natriutetic Peptide METHOD: ??Siemens Rong360aur XP using MIESHA. Decision threshold of 100 [...] or infusion of nesiritide. 04/11/2018 1:31 PM EXECUTIVE PERSONAL ASSISTANT 04/11/2018 1:34 PM EXECUTIVE PERSONAL ASSISTANT Tomi GONZALEZ LAB BLOOD ORDERABLES Fi nal Result [facility] HISTORICAL RESULTS * XR Chest 1 View (04/11/2018 1:15 PM EXECUTIVE PERSONAL ASSISTANT) Anatomical Region Laterality Modality Body, Chest N/A Radiographic Sylvia ging 04/11/2018 1:15 PM EXECUTIVE PERSONAL ASSISTANT Impressions 04/11/2018 1:47 PM EXECUTIVE PERSONAL ASSISTANT ?? 1.No focal consolidation. ??No pneumothorax. ??No [...] D: ??04/11/2018 1:44 PM T: Report ID: [id number] Reading Location: ??[id number] [EOD] Narrative 04/11/2018 1:47 PM EXECUTIVE PERSONAL ASSISTANT EXAM DESCRIPTION: ??Chest 1 View Portable REASON [...] signed by Yoandy HOLLAND T: Report ID: [id number] Reading Location: [id number] [EOD] us Tomi GONZALEZ IMG XR PROCEDURES Final Result * US Vein Duplex Lower Extremity Bilateral Complete (04/11/2018 12:00 AM EXECUTIVE PERSONAL ASSISTANT) Anatomical Region Laterality Modality Vascular Bilateral Ultrasound 04/11/2018 Impressions 04/16/2018 7:37 AM EXECUTIVE PERSONAL ASSISTANT ??Negative for deep vein thrombosis, bilateral lower extremities. NTS Job: [id number] Dictated By: Librado Nguyễn MD Dictated For: Librado ??MD Gopi [EOD] Narrative 04/16/2018 7:37 AM EXECUTIVE PERSONAL ASSISTANT DATE OF SERVICE: 04/11/2018 REASON FOR EXAM: [...] deep vein thrombosis, bilateral lowerextremities. NTS Job: [id number] Dictated By: Librado Nguyễn MD Dictated For: Librado Nguyễn MD [EOD] us Tomi GONZALEZ IMG US PROCEDURES Final Result * XR Abdomen Erect and or Decubitus 2 Views (04/11/2018 12:00 AM EXECUTIVE PERSONAL ASSISTANT) Anatomical Region Laterality Modality Body, Abdomen N/A Radiographic Sylvia ging 04/11/2018 Impressions 04/11/2018 5:30 PM EXECUTIVE PERSONAL ASSISTANT ??Nonobstructive bowel gas pattern. ??No significant retained fecal material. THIS IS AN ELECTRONICALLY VERIFIED FINAL REPORT 04/11/2018 5:27 PM - Electronically signed by Bryant Camargo M.D. AT D: ??04/11/2018 5:27 PM T: Report ID: [id number] Reading Location: ??[id number] [EOD] Narrative 04/11/2018 5:30 PM EXECUTIVE PERSONAL ASSISTANT EXAM DESCRIPTION: ??Abdomen 2 Views REASON FOR [...] Bryant Camargo M.D. AT T: Report ID: [id number] Reading Location: [place] [id number] [EOD] Tomi GONZALEZ IMG XR PROCEDURES Final Result documented in this encounter Visit Diagnoses Not on filedocumented in this encounter Care Teams Pest Control Pilot Relationship Specialty Start Date End Date Zeke Puente MD [address] [place] [address] PCP - General 07/10/17 06/11/18 Damon Swanson DO [address] [place] [address] Medical Oncologist/Barn Manager Hematology and Oncology 10/25/17 documented as of this encounter
--- OUTSIDE RECORDS SUMMARY | 2024-02-27 03:16 | XMS_ITS | Encounter Summary ---
Author Organization [facility] Healthcare Address [address] [place] [address] Care Team Providers Care Graphics Software Engineer Name Role Phone Unavailable Primary Care Provider Unavailabl e Encounter Details Date Type Department Care Team (Latest Contact Info) Description 09/21/2015 8:29 AM CDT Hospital Encounter [facility] OP Damon Swanson, DO [facility] [id number] Encounter for follow-up examination after completed treatment for malignant neoplasm; Personal history of malignant neoplasm of breast Social History Tobacco Use Types Packs/Day Years Used Date Smoking Tobacco: Never Assessed Comments Unknown Sex and Gender Information Value Date Recorded Sex Assigned at Not on file Legal Sex Female 12:30 PM CONTRACT GRAPHIC DESIGNER Gender Identity Not on file Sexual [...] Tenorio M.D. CN:brian 02:39 PM 02:[address] [facility] [EOD] Narrative 09/21/2015 2:43 PM CDT EXAMINATION: [...] Tenorio M.D. CN:brian 02:39 PM 02:[address] [facility] [EOD] Damon Swanson DO IMG CT [...] Marc D.O. :as 12:53 PM 12:[address] [facility] [EOD] Narrative 09/21/2015 3:33 PM CDT EXAMINATION: [...] Marc D.O. :as 12:53 PM 12:[address] [facility] [EOD] Damon Swanson DO IMG CT PROCEDURES Final Resu lt documented in this encounter Visit Diagnoses Diagnosis Encounter for follow-up examination after completed treatment for malignant neoplasm Personal history of malignant neoplasm of breast documented in this encounter
--- OUTSIDE RECORDS SUMMARY | 2024-02-27 03:16 | XMS_ITS | Encounter Summary ---
Author Organization [facility] Healthcare Address [address] [place] [address] Care Team Providers Care Tailor Garment Fitter Name Role Phone Unavailable Primary Care Provider Unavailabl e Encounter Details Date Type Department Care Team (Latest Contact Info) Description 12/26/2016 10:50 AM CDT Hospital Encounter [facility] OP Damon Sawnson, DO [facility] [address] [id number] Encounter for screening mammogram for malignant neoplasm of breast; Personal history of malignant neoplasm of breast; Encounter for follow-up examination after completed treatment for malignant neoplasm Social History Tobacco Use Types Packs/Day Years Used Date Smoking Tobacco: Never Assessed Comments Unknown Sex and Gender Information Value Date Recorded Sex Assigned at Not on file Legal Sex Female 12:30 PM SEARCH ENGINE OPTIMIZATION MANAGER Gender Identity Not on file Sexual [...] by: Edwar Deng M.D., md/:12/26/2016 11:34:53 ?? Radiology Supervisor: Layne VIVEROS (R)(M), [facility] letter sent: Normal Exam ?? Reading location: [facility]: 2 Benign [EOD] Narrative 12/26/2016 11:38 [...] mammogram, 11/07/2014 mammogram, and 10/30/2013 mammogram - [facility]. ?? BREAST TISSUE: The tissue of [...] 12/18/2015 mammogram,11/07/2014 mammogram, and 10/30/2013 mammogram - [facility]. BREAST TISSUE: The tissue of both [...] signed by: Edwar Deng M.D., md/:12/26/2016 11:34:53 Radiology Supervisor: Layne Iniguez RT (R)(M), [facility] letter sent: Normal Exam Reading location: [facility]: 2 Benign [EOD] us Damon Swanson [...]
--- OUTSIDE RECORDS SUMMARY | 2024-02-27 03:16 | XMS_ITS | Encounter Summary ---
Author Organization [facility] Address [address] [place] [address] Phone Care Team Providers Care Database Administrator Name Role Phone Zeke Puente MD Primary Care Provider [phone] Annamaria Mosqueda DO Unavailable [phone] Reason for Visit * Reason Comments Follow-up Encounter Details Date Type Department Care Team (Late st Contact Info) Description 10/30/2017 11:00 AM CDT Office Visit [facility] Oncology [address] [place] [phone] Annamaria Mosqueda, DO [address] [address] Malignant neoplasm of left breast [...] on file Legal Sex Female 12:30 PM THERMODYNAMIC PHYSICIST Gender Identity Not on file Sexual Orientation [...] Referring Physician: Zeke Puente MD [address] [place] [address] Primary Care Provider: Zeke Puente MD Assessment/Plan [...] underlying advanced arthritis. She will continue with [id number] medications. 5. Viral versus bacterial cutaneous infection. [...] on: 05/09/2018 11:32 AM Modules accepted: Orders MODYNAMIC PHYSICIST * Addendum Note - Cheko Alexander RN - 10/30/2017 11:00 AM CDTAddended by: CHEKO ALEXANDER on: 05/09/2018 11:33 AM Modules accepted: Orders MODYNAMIC PHYSICIST documented in this encounter Plan of Treatment [...] WITH AUTO DIFFERENTIAL Routine 05/15/2018 9:38 AM THERMODYNAMIC PHYSICIST Malignant neoplasm of left breast in female, estrogen receptor negative, unspecified site of breast (CMS/HCC) documented in this encounter Results * (ABNORMAL) CBC with auto differential (05/15/2018 9:38 AM THERMODYNAMIC PHYSICIST) WBC 4.1 3.4 - 10.8 x10E3/uL [facility] [...] 01 Blood specimen (specimen) 05/15/2018 9:38 AM THERMODYNAMIC PHYSICIST 05/15/2018 Narrative [facility] - 05/15/2018 10:45 AM THERMODYNAMIC PHYSICIST Performed at: ??01 - [facility] [address] [facility] [place] ??[id number] Web Application Tester: Rodrigo Escobar MD, Phone: ??[phone] Annamaria Mosqueda DO LAB BLOOD ORDERABLES Final [...] 05/15/2018 documented in this encounter Care Teams Database Administrator Relationship Specialty Start Date End Date Zeke Puente MD [address] [place] [address] PCP - General 07/10/17 06/11/18 Annamaria Mosqueda DO [address] [place] [address] Medical Oncologist/Administrative Law Judge Hematology and Oncology 10/25/17 documented as of this encounter
--- OUTSIDE RECORDS SUMMARY | 2024-02-27 03:16 | XMS_ITS | Encounter Summary ---
Author Organization [facility] Address [address] [place] [address] Phone Care Team Providers Care Maintenance Millwright Name Role Phone Zeke Puente MD Primary Care Provider [phone] Damon Swanson DO Unavailable [phone] Encounter Details Date Type Department Care Team (Late st Contact Info) Description 05/15/2018 8:45 AM SENIOR NET SOFTWARE DEVELOPER Lab [facility] Oncology [address] [place] [phone] Malignant neoplasm of left breast in female, [...] file Legal Sex Female 12:30 PM SENIOR NET SOFTWARE DEVELOPER Gender Identity Not on file Sexual Orientation [...] 05/15/2018 documented in this encounter Care Teams Maintenance Millwright Relationship Specialty Start Date End Date Zeke Puente MD [address] [place] [address] PCP - General 07/10/17 06/11/18 Damon Swanson DO [address] [place] [address] Medical Oncologist/Director Of Education And Training Hematology and Oncology 10/25/17 documented as of this encounter
--- OUTSIDE RECORDS SUMMARY | 2024-02-27 03:16 | XMS_ITS | Encounter Summary ---
Author Organization [facility] Address [address] [place] [address] Phone Care Team Providers Care Oil Process Stillman Name Role Phone Zeke Puente MD Primary Care Provider [phone] Damon Swanson DO Unavailable [phone] Encounter Details Date Type Department Care Team (Late st Contact Info) Description 05/15/2018 Orders Only [facility] Physicians [facility] Oncology [address] [facility] [place] [address] [place] [phone] Damno Swanson, DO [address] [facility] [address] [place] [address] Social History Tobacco Use Types Packs/Day Years Used Date Smoking Tobacco: Never Smokeless Tobacco: Never Alcohol Use Standard Drinks/Week Comments No 0 (1 standard drink = 0.6 oz pur e alcohol) Comments Unknown Sex and Gender Information Value Date Recorded Sex Assigned at Not on file Legal Sex Female 12:30 PM LOGISTICS MANAGEMENT SPECIALIST Gender Identity Not on file Sexual Orientation Not on file documented as of this encounter Plan of Treatment Not on file documented as of this encounter Procedures Procedure Name Priority Date/Time Associated Diagnosis Comments CANCER ANTIGEN 15-3 Routine 05/15/2018 9 :30 AM LOGISTICS MANAGEMENT SPECIALIST COMPREHENSIVE METABOLIC PANEL Routine 05/15/2018 9:30 AM LOGISTICS MANAGEMENT SPECIALIST documented in this encounter Results * (ABNORMAL) Cancer antigen 15-3 (05/15/2018 9:30 AM LOGISTICS MANAGEMENT SPECIALIST) Pathologist [facility] Cancer Antigen 15-3 38.1(H) 0.0 - 25.0 U/mL [facility] - 01 Comment: [facility] Electrochemiluminescence Immunoassay (ECLIA) Values obtained with different assay methods or kits cannot be used interchangeably. ??Results cannot be interpreted as absolute evidence of the presence or absence of malignant disease. 05/15/2018 9:30 AM LOGISTICS MANAGEMENT SPECIALIST 05/15/2018 Narrative [facility] - 05/16/2018 6:17 AM LOGISTICS MANAGEMENT SPECIALIST Performed at: ??01 - [address] ??[id number] Specialty Development Consultant: Jc Boyer PhD, Phone: ??[phone] Damon Swanson DO LAB BLOOD ORDERABLES Final R esult [facility] - 01 * (ABNORMAL) Comprehensive metabolic panel (05/15/2018 9:30 AM LOGISTICS MANAGEMENT SPECIALIST) Pathologist [facility] Glucose 440(H) 65 - 99 mg/dL [facility] [...] IU/L [facility] - 01 05/15/2018 9:30 AM LOGISTICS MANAGEMENT SPECIALIST 05/15/2018 Narrative [facility] - 05/16/2018 6:17 AM LOGISTICS MANAGEMENT SPECIALIST Performed at: ??01 - [facility] [address] ??[id number] Specialty Development Consultant: Jc Boyer PhD, Phone: ??[phone] Damon Swanson DO LAB BLOOD ORDERABLES Final R esult [facility] - 01 documented in this encounter Visit Diagnoses Not on filedocumented in this encounter Care Teams Oil Process Stillman Relationship Specialty Start Date End Date Zeke Puente MD [address] [place] [address] PCP - General 07/10/17 06/11/18 Damon Swanson DO [address] [place] [address] Medical Oncologist/Decorating Instructor Hematology and Oncology 10/25/17 documented as of this encounter
--- OUTSIDE RECORDS SUMMARY | 2024-02-27 03:16 | XMS_ITS | Encounter Summary ---
Author Organization [facility] Healthcare Address [address] [place] [address] Care Team Providers Care Needle Setter Name Role Phone Unavailable Primary Care Provider Unavailabl e Encounter Details Date Type Department Care Team (Latest Contact Info) Description 10/30/2012 1:38 PM CDT Hospital Encounter [facility] Rene Fowler MD [address] [place] [address] Malignant neoplasm of breast (female) (HCC) Social History Tobacco Use Types Packs/Day Years Used Date Smoking Tobacco: Never Assessed Comments Unknown Sex and Gender Information Value Date Recorded Sex Assigned at Not on file Legal Sex Female 12:30 PM PROFESSOR OF RADIOLOGY Gender Identity Not on file Sexual Orientation [...] Deng M.D. MD: 03:06 PM 03:06 PM [facility] [EOD] Narrative 10/30/2012 3:12 PM CDT EXAMINATION: [...] Deng M.D. MD: 03:06 PM 03:06 PM [facility] [EOD] Rene MONTERO MAMMO PROCEDURES Final [...]
--- OUTSIDE RECORDS SUMMARY | 2024-02-27 03:16 | XMS_ITS | Encounter Summary ---
Author Organization [facility] Healthcare Address [address] [place] [address] Care Team Providers Care Telephone Instrument Supervisor Name Role Phone Unavailable Primary Care Provider Unavailabl e Encounter Details Date Type Department Care Team (Latest Contact Info) Description 02/05/2013 9:02 AM CDC ASSOCIATE Hospital Encounter [facility] OP Damon Swanson, DO [facility] [address] Observation for suspected malignant neoplasm; Malignant neoplasm of breast (female) (HCC) Social History Tobacco Use Types Packs/Day Years Used Date Smoking Tobacco: Never Assessed Comments Unknown Sex and Gender Information Value Date Recorded Sex Assigned at Not on file Legal Sex Female 12:30 PM CDC ASSOCIATE Gender Identity Not on file Sexual Orientation Not on file documented as of this encounter Plan of Treatment Not on file documented as of this encounter Procedures Procedure Name Priority Date/Time Associated Diagnosis Comments CT ABDOMEN W CONTRAST Routine 02/05/2013 10:[address] CHEST W CONTRAST Routine 02/05/2013 1 0:02 AM CDC ASSOCIATE documented in this encounter Results * CT Abdomen W Contrast (02/05/2013 10:02 AM CDC ASSOCIATE) Anatomical Region Laterality Modality Body N/A Computed Tomogra phy 02/05/2013 10:0 2 AM CDC ASSOCIATE Impressions 02/05/2013 12:14 PM CDC ASSOCIATE ?? 1. ??No evidence of metastatic disease [...] Miguel M.D. CH:giuliana 10:52 AM 10:57 AM [facility] [EOD] Narrative 02/05/2013 12:14 PM CDC ASSOCIATE EXAMINATION: ??CT abdomen with contrast HISTORY: ??Breast [...] Following the intravenous administration of 100 mL [id number] intravenous contrast and 48 ounces of oral [...] Miguel M.D. CH:giuliana 10:52 AM 10:57 AM [facility] [EOD] us Damon Swanson DO IMG CT PROCEDURES Final Resu lt * CT Chest W Contrast (02/05/2013 10:02 AM CDC ASSOCIATE) Anatomical Region Laterality Modality Body N/A Computed Tomogra phy 02/05/2013 10:0 2 AM CDC ASSOCIATE Impressions 02/05/2013 12:14 PM CDC ASSOCIATE ?? 1. ??No evidence of metastatic disease within the chest. 2. ??See separately dictated CT of the abdomen. 3. ??Right breast seroma as detailed above. 4. ??Sequela of old granulomatous disease as noted above. THIS IS AN ELECTRONICALLY VERIFIED REPORT 02/05/2013 12:11 PM: ??Martinez Miguel M.D. Martinez Miguel M.D. CH:giuliana 11:08 AM 11:14 AM [facility] [EOD] Narrative 02/05/2013 12:14 PM CDC ASSOCIATE EXAMINATION: ??CT chest with contrast HISTORY: ??Breast [...] Miguel M.D. CH:giuliana 11:08 AM 11:14 AM [facility] [EOD] Damon Swanson DO IMG CT PROCEDURES Final Resu lt documented in this encounter Visit Diagnoses Diagnosis Observation for suspected malignant neoplasm Malignant neoplasm of breast (female) (HCC) Malignant neoplasm of breast (female), unspecified site documented in this encounter
--- OUTSIDE RECORDS SUMMARY | 2024-02-27 03:16 | XMS_ITS | Encounter Summary ---
Author Organization [facility] Address [address] [place] [address] Phone Care Team Providers Care Die Repairer Forging Name Role Phone Zeke Puente MD Primary Care Provider [phone] Damon Swanson DO Unavailable [phone] Encounter Details Date Type Department Care Team (Late st Contact Info) Description 04/30/2018 Telephone [facility] Oncology [address] [place] [address] Damon Swanson, DO [address] [address] Social History Tobacco Use Types Packs/Day Years Used Date Smoking Tobacco: Never Smokeless Tobacco: Never Alcohol Use Standard Drinks/Week Comments No 0 (1 standard drink = 0.6 oz pur e alcohol) Comments Unknown Sex and Gender Information Value Date Recorded Sex Assigned at Not on file Legal Sex Female 12:30 PM CRIMINALIST TECHNICIAN Gender Identity Not on file Sexual Orientation Not on file documented as of this encounter Miscellaneous Notes * Telephone Encounter - Jazmine Day RN - 04/30/2018 1:59 PM CRIMINALIST TECHNICIAN Please call patient to reschedule missed appointment. Thank you. INALIST TECHNICIAN documented in this encounter Plan of Treatment Not on file documented as of this encounter Visit Diagnoses Not on filedocumented in this encounter Care Teams Die Repairer Forging Relationship Specialty Start Date End Date Zeke Puente MD [address] [place] [address] PCP - General 07/10/17 06/11/18 Damon Swanson DO [address] [place] [address] Medical Oncologist/Traveling Accountant Hematology and Oncology 10/25/17 documented as of this encounter
--- OUTSIDE RECORDS SUMMARY | 2024-02-27 03:16 | XMS_ITS | Encounter Summary ---
Author Organization [facility] Address [address] [place] [address] Phone Care Team Providers Care Pick Remover Name Role Phone Damon Swanson DO Unavailable [phone] Rene Shelton MD Primary Care Provider [phone] Encounter Details Date Type Department Care Team (Late st Contact Info) Description 06/12/2018 Orders Only [facility] Physicians [facility] Oncology [address] [facility] [place] [address] [place] [address] Damon Swanson, DO [address] [address] Social History Tobacco Use Types Packs/Day Years Used Date Smoking Tobacco: Never Smokeless Tobacco: Never Alcohol Use Standard Drinks/Week Comments No 0 (1 standard drink = 0.6 oz pur e alcohol) Comments Unknown Sex and Gender Information Value Date Recorded Sex Assigned at Not on file Legal Sex Female 12:30 PM ESTATE MANAGER Gender Identity Not on file Sexual [...] PM CDT Performed at: ??01 - [facility] [address] [facility], [place], [place] [id number] Broodmare Barn Groom: Rodrigo Escobar MD, Phone: ??[phone] us Damon Swanson DO LAB BLOOD ORDERABLES Final R esult [facility] - 01 documented in this encounter Visit Diagnoses Not on filedocumented in this encounter Care Teams Pick Remover Relationship Specialty Start Date End Date Rene Shelton MD [address] [phone] PCP - General Family Medicine 06/12/18 12/01/18 Damon Swanson DO [facility] [phone] Medical Oncologist/Chief Catalyst Operator Hematology and Oncology 10/25/17 documented as of this encounter
--- OUTSIDE RECORDS SUMMARY | 2024-02-27 03:16 | XMS_ITS | Encounter Summary ---
Author Organization [facility] Healthcare Address [address] [place] [address] Care Team Providers Care Life Insurance Sales Name Role Phone Unavailable Primary Care Provider Unavailabl e Encounter Details Date Type Department Care Team (Latest Contact Info) Description 03/24/2016 12:37 PM PORTRAIT PAINTER Hospital Encounter [facility] OP Damon Swanson, DO [address] [id number] Malignant neoplasm of female breast (CMS/HCC); Other spondylosis, thoracic region; Noninflammatory pericardial effusion Social History Tobacco Use Types Packs/Day Years Used Date Smoking Tobacco: Never Assessed Comments Unknown Sex and Gender Information Value Date Recorded Sex Assigned at Not on file Legal Sex Female 12:30 PM PORTRAIT PAINTER Gender Identity Not on file Sexual Orientation Not on file documented as of this encounter Plan of Treatment Not on file documented as of this encounter Procedures Procedure Name Priority Date/Time Associated Diagnosis Comments CT ABDOMEN W CONTRAST Routine 03/24/2016 12:[address] CHEST W CONTRAST Routine 03/24/2016 1 2:00 AM PORTRAIT PAINTER documented in this encounter Results * CT Abdomen W Contrast (03/24/2016 12:00 AM PORTRAIT PAINTER) Anatomical Region Laterality Modality Body N/A Computed Tomogra phy 03/24/2016 Narrative 03/25/2016 8:[address] scan of the abdomen with intravenous [...] Claros M.D. NC:garo 08:21 AM 08:21 AM [facility] [EOD] Procedure Note Provider, MD Almita [...] Claros M.D. NC:garo 08:21 AM 08:21 AM [facility] [EOD] us Damon Swanson DO IMG CT PROCEDURES Final Resu lt * CT Chest W Contrast (03/24/2016 12:00 AM PORTRAIT PAINTER) Anatomical Region Laterality Modality Body N/A Computed Tomogra phy 03/24/2016 Narrative 03/25/2016 8:[address] scan chest with IV contrast History [...] Claros M.D. NC:garo 08:15 AM 08:15 AM [facility] [EOD] Procedure Note Provider, MD Almita [...] Claros M.D. NC:nc 08:15 AM 08:15 AM [facility] [EOD] Damon Swanson DO IMG CT PROCEDURES Final Resu lt documented in this encounter Visit Diagnoses Diagnosis Malignant neoplasm of female breast (HCC) Malignant neoplasm of breast (female), unspecified site Other spondylosis, thoracic region Noninflammatory pericardial effusion Unspecified disease of pericardium documented in this encounter
--- OUTSIDE RECORDS SUMMARY | 2024-02-27 03:16 | XMS_ITS | Encounter Summary ---
Author Organization [facility] Healthcare Address [address] [address] Care Team Providers Care School Child Care Attendant Name Role Phone Unavailable Primary Care Provider Unavailabl e Encounter Details Date Type Department Care Team (Latest Contact Info) Description 10/30/2013 1:11 PM CDT Hospital Encounter [facility] Rene Fowler MD [address] [place] [address] Encounter for screening mammogram for high-risk patient; Personal history of malignant neoplasm of breast Social History Tobacco Use Types Packs/Day Years Used Date Smoking Tobacco: Never Assessed Comments Unknown Sex and Gender Information Value Date Recorded Sex Assigned at Not on file Legal Sex Female 12:30 PM SALES 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 Venkat Champion M.D. NH:mo 02:55 PM 02:55 PM [facility] [EOD] Narrative 10/30/2013 2:58 PM CDT [...] 10/30/2013 2:55 PM: Venkat Champion M.D. Venkat Champino M.D. NH:serena 02:55 PM 02:55 PM [facility] [EOD] Rene MONTERO MAMMO PROCEDURES Final [...]
--- OUTSIDE RECORDS SUMMARY | 2024-02-27 03:16 | XMS_ITS | Encounter Summary ---
Author Organization [facility] Address [address] [place] [address] Phone Care Team Providers Care Plisse Machine Operator Helper Name Role Phone Zeke Puente MD Primary Care Provider [phone] Damon Swanson DO Unavailable Encounter Details Date Type Department Care Team (Late st Contact Info) Description 10/30/2017 Orders Only [facility] Physicians [facility] Oncology [address] [facility] [place] [address] [place] [address] Damon Swanson, DO [address] [facility] [address] [place] [address] Social History Tobacco Use Types Packs/Day Years Used Date Smoking Tobacco: Never Smokeless Tobacco: Never Alcohol Use Standard Drinks/Week Comments No 0 (1 standard drink = 0.6 oz pur e alcohol) Comments Unknown Sex and Gender Information Value Date Recorded Sex Assigned at Not on file Legal Sex Female 12:30 PM RESPIRATORY THERAPY DIRECTOR Gender Identity Not on file Sexual [...] PM CDT Performed at: ??01 - [facility] [address] [facility] [address] [place], [place] ??[id number] Experimental Assembler: Rodrigo Escobar MD, Phone: ??[phone] Damon Swanson DO LAB BLOOD ORDERABLES Final R esult [facility] - 01 documented in this encounter Visit Diagnoses Not on filedocumented in this encounter Care Teams Plisse Machine Operator Helper Relationship Specialty Start Date End Date Zeke Puente MD [address] [place] [address] PCP - General 07/10/17 06/11/18 Damon Swanson DO [address] [place] [address] Medical Oncologist/Swimming Pool Service Technician Hematology and Oncology 10/25/17 documented as of this encounter
--- OUTSIDE RECORDS SUMMARY | 2024-02-27 03:16 | XMS_ITS | Encounter Summary ---
Author Organization [facility] Healthcare Address [address] [place] [address] Care Team Providers Care Ethics Manager Name Role Phone Unavailable Primary Care Provider Unavailabl e Encounter Details Date Type Department Care Team (Latest Contact Info) Description 11/07/2014 10:25 AM CDT Hospital Encounter [facility] Rene Fowler MD [address] [place] [address] Encounter for screening mammogram for high-risk patient; Personal history of malignant neoplasm of breast Social History Tobacco Use Types Packs/Day Years Used Date Smoking Tobacco: Never Assessed Comments Unknown Sex and Gender Information Value Date Recorded Sex Assigned at Not on file Legal Sex Female 12:30 PM CHIEF LIFESTYLE OFFICER Gender Identity Not on file Sexual [...] by: Laith Webb M.D. ab/:11/07/2014 11:34:29 ?? Wheelchair Driver: Dina VIVEROS(R)(M), [facility] letter sent: Normal Exam ?? Reading location: BI-RADS: 2 Benign [EOD] Narrative 11/07/2014 11:35 AM CDT - [facility] BILAT DIAGNOSTIC 3D W/CAD BILATERAL DIGITAL DIAGNOSTIC [...] mammogram, 04/26/2012 mammogram, and 10/25/2011 mammogram - [facility]. ?? BREAST TISSUE: The tissue of [...] Note Provider, MD Almita - 07/28/2020 - [facility] BILAT DIAGNOSTIC 3D W/CAD BILATERAL DIGITAL DIAGNOSTIC [...] mammogram, 04/26/2012 mammogram, and 10/25/2011 mammogram - [facility]. BREAST TISSUE: The tissue of [...] signed by: Laith Webb M.D. ab/:11/07/2014 11:34:29 Wheelchair Driver: Dina VIVEROS(Yocasta)(M), [facility] letter sent: Normal Exam Reading location: [...]
--- OUTSIDE RECORDS SUMMARY | 2024-02-27 03:16 | XMS_ITS | Encounter Summary ---
Author Organization [facility] Healthcare Address [address] [place] [address] Care Team Providers Care Four Horse Hitch Driver Name Role Phone Unavailable Primary Care Provider Unavailabl e Encounter Details Date Type Department Care Team (Latest Contact Info) Description 04/26/2012 10:10 AM NURSERY TEACHER Hospital Encounter [facility] Rene Fowler MD [address] [place] [address] Malignant neoplasm of breast (female) (HCC) Social History Tobacco Use Types Packs/Day Years Used Date Smoking Tobacco: Never Assessed Comments Unknown Sex and Gender Information Value Date Recorded Sex Assigned at Not on file Legal Sex Female 12:30 PM NURSERY TEACHER Gender Identity Not on file Sexual Orientation Not on file documented as of this encounter Plan of Treatment Not on file documented as of this encounter Procedures Procedure Name Priority Date/Time Associated Diagnosis Comments DIAGNOSTIC MAMMOGRAM 2D BILATERAL Routine 04/26/2012 10:12 AM NURSERY TEACHER documented in this encounter Results * Diagnostic Mammogram 2D Bilateral (04/26/2012 10:12 AM NURSERY TEACHER) Anatomical Region Laterality Modality Breast Bilateral Mammography 04/26/2012 10:1 2 AM NURSERY TEACHER Impressions 04/26/2012 11:06 AM NURSERY TEACHER 1. ??Decreased size of right upper outer quadrant hematoma/seroma. 2. ??Probably benign post-treatment appearance of both breasts. ??Short interval follow-up bilateral diagnostic mammography is recommended in 6 months. ASSESSMENT: BI-RADS: 3 PROBABLY BENIGN. Short term interval follow-up is recommended in 6 months. THIS IS AN ELECTRONICALLY VERIFIED REPORT 04/26/2012 11:02 AM: ??Venkat Champion M.D. Venkat Champion M.D. NH:dc 11:02 AM 11:02 AM [EOD] Narrative 04/26/2012 11:06 AM NURSERY TEACHER EXAMINATION: BILATERAL DIGITAL DIAGNOSTIC MAMMOGRAM HISTORY: 57-year-old [...]
[2024-02-27] MEDS: SODIUM CHLORIDE 0.9% IV 1,000 ML 75 ML IV CONT ×2 (03:23→17:10)
--- OUTSIDE RECORDS SUMMARY | 2024-02-27 03:24 | XMS_ITS | Encounter Summary ---
Author Organization [facility] Address [address] [place] [address]. [place] [address] [place] [address] Care Team Providers Care Voip Network Technician Name Role Phone Damon Swanson MD Unavailable [phone] Don Branham MD Primary Care Provider [phone] Reason for Visit * Reason Onset Date Comments Travel 07/31/2019 Encounter Details Date Type Department Care Team (Late st Contact Info) Description 07/31/2019 Telephone [facility], [facility] [address] [place] [address] Khalif Dang MD [facility] [address] [place] [address] Travel Social History Tobacco Use [...] documented as of this encounter Care Teams Voip Network Technician Relationship Specialty Start Date End Date Don Branham MD [address] [place] [address] PCP - General EMERGENCY MEDICINE 05/10/19 Damon Swanson MD INTERNAL MEDICINE 12/10/18 documented as of this encounter
--- OUTSIDE RECORDS SUMMARY | 2024-02-27 03:24 | XMS_ITS | Encounter Summary ---
Author Organization [facility] Address [address] [place] [address]. [place] [address] [place] [address] Care Team Providers Care Sole Edge Inker Machine Name Role Phone Damon Swanson MD Unavailable [phone] Don Branham MD Primary Care Provider [phone] Encounter Details Date Type Department Care Team (Late st Contact Info) Description 04/16/2020 [facility] Only [facility] [place] [place] [address] Scooby Ragsdale MD Social History Tobacco Use [...] documented as of this encounter Care Teams Sole Edge Inker Machine Relationship Specialty Start Date End Date Don Branham MD [address] [place] [address] PCP - General EMERGENCY MEDICINE 05/10/19 Damon Swanson MD INTERNAL MEDICINE 12/10/18 documented as of this encounter
--- OUTSIDE RECORDS SUMMARY | 2024-02-27 03:24 | XMS_ITS | Encounter Summary ---
Author Organization [facility] Address [address] [place] [address]. [place] [address] [place] [address] Care Team Providers Care Shellfish Manager Name Role Phone Damon Swanson MD Unavailable [phone] Don Branham MD Primary Care Provider [phone] Encounter Details Date Type Department Care Team (Late st Contact Info) Description 07/22/2019 Hospital Follow-up Call [facility]/Surgical [address] [place] [address] Genesis Turner RN Social History Tobacco [...] documented as of this encounter Care Teams Shellfish Manager Relationship Specialty Start Date End Date Don Branham MD [address] [place] [address] PCP - General EMERGENCY MEDICINE 05/10/19 Damon Swanson MD INTERNAL MEDICINE 12/10/18 documented as of this encounter
--- OUTSIDE RECORDS SUMMARY | 2024-02-27 03:24 | XMS_ITS | Clinical Summary ---
Author Organization [facility] Address [address] [place] [address]. 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
--- OUTSIDE RECORDS SUMMARY | 2024-02-27 03:25 | XMS_ITS | Encounter Summary ---
Author Organization [facility] Address [address] [place] [address]. [place] [address] [place] [address] Care Team Providers Care Lead Burner Apprentice Name Role Phone Damon Swanson MD Unavailable [phone] Don Branham MD Primary Care Provider [phone] Encounter Details Date Type Department Care Team [...] climbing stairs? 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 [address] PCP - General EMERGENCY MEDICINE 05/10/19 Damon Swanson MD INTERNAL MEDICINE 12/10/18 documented as of this encounter
--- OUTSIDE RECORDS SUMMARY | 2024-02-27 03:25 | XMS_ITS | Encounter Summary ---
Author Organization [facility] Address [address] [place] [address]. [place] [address] [place] [address] Care Team Providers Care Pastoral Worker Name Role Phone Damon Swanson MD Unavailable [phone] Don Brahnam MD Primary Care Provider [phone] Encounter Details Date Type Department Care Team [...] documented as of this encounter Care Teams Pastoral Worker Relationship Specialty Start Date End Date Don Branham MD [address] [place] [address] PCP - General EMERGENCY MEDICINE 05/10/19 Damon Swanson MD INTERNAL MEDICINE 12/10/18 documented as of this encounter
--- OUTSIDE RECORDS SUMMARY | 2024-02-27 03:25 | XMS_ITS | Encounter Summary ---
Author Organization [facility] Address [address] [place] [address]. [place] [address] [place] [address] Care Team Providers Care Investment Analyst Name Role Phone Damon Swanson MD Unavailable [phone] Don Branham MD Primary Care Provider Reason for Visit * Auth/Cert Specialty Diagnoses / Procedures Referred By Contac t Referred To Contact Diagnoses Infected decubitus ulcer Procedures INP Referral ID Status Reason Start Date Expiration Date Visits Re quested Visits Authorized [id number] 1 1 Encounter Details Date Type Department Care Team (Late st Contact Info) Description 07/17/2019 10:12 AM CDT Anesthesia Event [facility] [address] [place] [address] Cole Ham CRNA [address] [place] [id number] Lyle Carter MD [address] [facility] [address] [address] Anesthesia Record Procedure Summary Procedure Name Responsible Anesthesiologist Anesthesia Start Time Anesthesia Stop Time Debridement left gluteal fold, wound VAC placement (Left: Buttocks) Cole Ham CRNA 07/17/19 1012 07/17/19 1132 Events Date Time Event Comment 07/17/2019 0839 0839 AN Anesthesia Prepped 0954 AN ICE HOCKEY COACH Prepped 1012 An Start Patient ID and [...] Date: 07/17/19; Removal Time: 1124; Removal Person: ICE HOCKEY COACH; Removal Reason: End of Case 07/17/19 1017 [...] complication * Anesthesia Preprocedure Evaluation - Lyle Cartre MD - 07/17/2019 8:36 AM CDT Anesthesia [...] Vomiting Past Medical History: No date: Cancer ([facility]) Comment: breast No date: Diabetes mellitus ([facility]) No date: Disease of thyroid gland No date: Hypertension No date: PVD (peripheral vascular disease) ([facility]) No date: Schizophrenia ([facility]) Past Surgical History: No date: BREAST SURGERY; [...] documented as of this encounter Care Teams Investment Analyst Relationship Specialty Start Date End Date Don Branham MD [address] [place] [address] PCP - General EMERGENCY MEDICINE 05/10/19 Damon Swanson MD INTERNAL MEDICINE 12/10/18 documented as of this encounter
--- OUTSIDE RECORDS SUMMARY | 2024-02-27 03:25 | XMS_ITS | Encounter Summary ---
Author Organization [facility] Address [address] [place] [address]. [place] [address] [place] [address] Care Team Providers Care Zinc Furnace Charger Name Role Phone Damon Swanson MD Unavailable [phone] Don Branham MD Primary Care Provider [phone] Reason for Referral * Surgical (Routine) - Closed Specialty Diagnoses / Procedures Referred By Leif hilton Referred To Contact Procedures Case request operating room: Debridement left gluteal fold possible wound VAC placement Stanislav May MD Phone: tel: fax: Referral ID Status Reason Start Date Expiration Date Visits Re quested Visits Authorized [id number] Closed 07/17/2019 08/16/2020 1 1 * (Routine) - Canceled Specialty Diagnoses / Procedures Referred By Leif hilton Referred To Contact Procedures OT Eval and Treat [facility]/Surgical [address] [place] [address] Phone: tel: fax: Referral ID Status Reason Start Date Expiration Date V isits Requested Visits Authorized [id number] Canceled 07/16/2019 08/15/2020 1 1 * (Routine) - Canceled Specialty Diagnoses / Procedures Referred By Leif t Referred To Contact Procedures PT Eval and Treat Laith Garrido MD [facility] [place] [address] Phone: tel: [phone] fax: Referral ID Status Reason Start Date Expiration Date V isits Requested Visits Authorized [id number] Canceled 07/16/2019 08/15/2020 1 1 Reason for Visit * Auth/Cert Specialty Diagnoses / Procedures Referred By Contac t Referred To Contact Diagnoses Infected decubitus ulcer Procedures INP Referral ID Status Reason Start Date Expiration Date Visits Re quested Visits Authorized [id number] 1 1 Encounter Details Date Type Department Care Team (Late st Contact Info) Description 07/16/2019 5:10 PM CDT - 07/19/2019 1:05 PM CDT Hospital Encounter [facility] Medical/Surgical [address] [place] [id number] Mar[place] [address] [phone] (Work) Donovan Oleary APRN [address] [place] [address] [phone] (Work) Discharge Disposition: Senior Care Facility Social History Tobacco Use Types Packs/Day [...] required due to: Wound care and ongoing custodial Primary Diagnoses: Infected decubitus ulcers Secondary Diagnosis: [...] 07/04/2019 STAR Report Pat.Name: IRIS PASCUAL Pat.ID: [id number] .Date: 07/04/2019 Exam Time: 12:56:00 PM Study Type:TRANSESOPHAGEAL ECHO (STAR) Height: 62in Weight: 167.65lb BSA: 1.77 m2 Age: 11 1955,64Y Sex: FEMALE BP: 147/68 HR: 67 bpm Sonogrphr: Lacie Victor [facility] Pat. Stat.:Inpatient Reason for [...] Date: 06/30/2019 Echocardiography Report Pat.Name: IRIS PASCUAL.ID: [id number] St.Date: 06/30/2019 Exam Time: 12:31:00 PM Study [...] 31.9 mm Right Ventricle 24.4 mm Major [place] 82.7 mm MMODE TA Tricuspid Annul 12.6 [...] medications were sent to [facility] [address] [place] [address] [address] [facility] [address] ?? levoFLOXacin 500 MG tablet You can get these medications from any pharmacy Bring a paper prescription for each of these medications ?? fluconazole 200 MG tablet ?? lactobacillus Tabs ?? linezolid 600 MG tablet Disposition: Senior Care Facility Patient Instructions: Activity: activity as tolerated Diet: Diet Carb Controlled Appropriate; 60g/meal Wound Care: as directed Therapy Ordered: Physical Therapy: Evaluate and Treat halfway: Evaluate and treat Follow-up appointments: Rounding physician [...] Patient may need further wound care at custodial facility. Recommend continued following by custodial. If needed, patient follow-up with general surgery [...] consume extra protein of your choice (cheese, uzbek yogurt, nuts, eggs, meat, peanut butter) at [...] and transition of care will begin at [facility]. Full report provided to alf for continuity of care. Medical record sent. Patient aware of transfer social worker masters contacted patient's daughter Celina and she is aware of patient discharge and transfer to [facility] in [place]. Patient was been a resident there prior. Patient is alert, oriented, and aware of transfer. Patient will transfer by ambulance. Wound vac needs to be meet at alf. No other services indicated. Case is closed. * June Johnson, BRANCH OPERATIONS COORDINATOR - 07/19/2019 10:07 AM CDT 07/19/19 0900 [...] of session. Recommendation PT Recommendation PT at Senior Care Facility PT Equipment Recommended Currently has DME [...] VAC placement Plan: OK to discharge to alf from surgical standpoint Wound VAC should be changed every 3 days starting tomorrow 07/20/2019 Plan of care discussed with the patient/family,medical team and nursing staff. STANISLAV BSIHOP MD 07/19/2019, 9:12 AM * Jaylin Veliz RN - 07/18/2019 10:37 PM CDT Problem: Mobility - Impaired Goal: Able to use ambulatory assistive device appropriately Outcome: Progressing Goal: Knowledge of need for increased mobility Outcome: Progressing Problem: Discharge Planning Goal: Knowledge of discharge instructions Outcome: Progressing Note: Plan to discharge to custodial facility for continued care on multiple ulcers. Problem: Pain control/comfort Goal: Promote pain control/comfort Outcome: Progressing Note: No c/o pain, patient resting comfortably, repositioning q2h. Problem: Skin integrity, Impaired-wound Goal: Absence of new skin breakdown Outcome: Progressing Note: No new skin breakdown. Goal: Evidence of wound healing Outcome: Progressing * Genesis Castellanos LCSW - 07/18/2019 2:47 PM CDT medical social worker spoke with Katie at [facility] in [facility]. [facility] is aware of patient's needs. Wound VAC etc..., Patient to go by ambulance. Scraper Operator will follow. * Yoana Ledbetter RN [...] with [facility] ADLS Prior Function Level of [place] Independent with functional transfers;Independent with ambulation;Needs assistance [...] Recommendation OT Recommendation OT during Hospitalization;OT at Senior Care Facility OT Equipment Recommended Currently has DME [...] bed mobiltiy. Recommendation PT Recommendation PT at Senior Care Facility PT Equipment Recommended Currently has DME [...] with [facility] ADLS Prior Function Level of [place] Independent with functional transfers;Independent with ambulation;Needs assistance [...] overall mobility. Recommendation PT Recommendation PT at Senior Care Facility PT Equipment Recommended Currently has DME [...] 32.62 kg/m??. BMI Assessment: Grade 1 Obesity Ariel Body Weight: 110 pounds Percent Ariel Body Weight: 162% Usual Body Weight: 195 pounds in May Percent Usual Body Weight: 91% x 2 months Percent Weight Loss: 9% over the past 2 months Nutrition: Current Diet Order: Diet Carb Controlled Appropriate; 60g/meal Diet Comment: Patient lives at home by herself but most likely will transition to a alf for further care. Patient appears to have 9% wt loss in past 30 days. Chewing/swallowing problems: No Food allergies/intolerances: none Cultural/Hinduism food preferences: none Current diet appropriate? Yes Current intake sufficient to meet nutritional needs? Patient is consuming 100% of meals; therefore is getting 1874 kcal and 91 grams of protein on average which meets estimated nutritional needs. Pain affecting PO intake? No Estimated Nutrient Needs: Calories: 8078-5736 kcal/day, based on 20 kcal/kg Protein: 91 gm/day, based on 1.25 gm/kg Labs: Alb 1.9, TP 6.4 HGB A1C Date Value Ref Range Status 07/13/2019 11.0 (H) <5.7 % Final Nutrition Risk: High Discharge nutrition plan: Discharge needs assessed. Will provide/update discharge instructions as needed. (See Nutrition Prescription above) CANDICE BHARDWAJ RD 07/18/19, 10:04 AM * Donovan Oleary, SLATE TRIMMER - 07/18/2019 9:23 AM CDT Hospitalist Daily [...] 07/04/2019 STAR Report Pat.Name: IRIS PASCUAL Gema.ID: [id number] .Date: 07/04/2019 Exam Time: 12:56:00 PM Study Type:TRANSESOPHAGEAL ECHO (STAR) Height: 62in Weight: 167.65lb BSA: 1.77 m2 Age: 11 1955,64Y Sex: FEMALE BP: 147/68 HR: 67 bpm Sonogrphr: Lacie Victor [facility] Pat. Stat.:Inpatient Reason for [...] 06/30/2019 Echocardiography Report Pat.Name: IRIS PASCUAL Pat.ID: [id number] St.Date: 06/30/2019 Exam Time: 12:31:00 PM Study [...] 31.9 mm Right Ventricle 24.4 mm [place] 82.7 mm MMODE TA Tricuspid Annul 12.6 [...] is now an inpatient. Patient discharged from [facility]ED on 07/16/19 , patient used 7 days starting with day 1. Discharge plan remains for patient to transfer to [facility] in [facility], Telephone number there is [phone] fax number is [phone] and call [place] at [phone] for updates. medical social worker will follow. * Viviana Beard RN - 07/17/2019 11:01 AM CDT 5/6 inpatient IM letter signed by the patient this am- understood acknowledged * Renay Barba OT - 07/17/2019 10:14 AM CDT OT evaluation orders received as patient transferred back to inpatient status from [facility]. Evaluation not completed this date [...] file Gets together: Not on file Attends gnosticist service: Not on file Active member of [...] SCREEN NEGATIVE SAMPLE EXPIRATION: 07/20/2019,2359 UNIT NUMBER [id number] PRODUCT: PC LEUKOPOOR UNIT DIVISION 00 UNIT [...] STAR Report Pat.Name: IRIS PASCUAL Nathan Ribeiro.ID: [id number] .Date: 07/04/2019 Exam Time: 12:56:00PM Study Type:TRANSESOPHAGEAL ECHO (STAR) Height: 62in Weight: 167.65lb BSA: 1.77 m2 Age: 11 1955,64Y Sex: FEMALE BP: 147/68 HR: 67 bpm Sonogrphr: Lacie Victor [facility] Pat. Stat.:Inpatient Reason for [...] 06/30/2019 Echocardiography Report Pat.Name: IRIS PASCUAL Gema.ID: [id number] .Date: 06/30/2019 Exam Time: 12:31:00 PM Study [...] 31.9 mm Right Ventricle 24.4 mm [place] 82.7 mm MMODE TA Tricuspid Annul 12.6 [...] Question: Reason for Consult? Answer: wound clinic [facility] Order Specific Question: Has the consulting provider been contacted? Answer: Yes Order Specific Question: Who was the provider consulted? Answer: message left Order Specific Question: Location: Answer: [facility] ??? Inpatient Consult to General Surgery Standing [...] CDT Nursing report called to Sven at [facility] MARY BETH FOREMAN RN * Mary Beth Foreman RN - 07/19/2019 1:05 PM CDT Spoke to Jamel with [facility] to stop therapy on wound vac [id number]. REF [id number]. MARY BETH FOREMAN RN * Mary Beth Foreman RN - 07/19/2019 12:51 PM CDT Attempted to call nursing report to [facility] three times. Was transferred to a voicemail.Williams answered and made aware that ambulance is headed there way and it is app[place] [address] MARY BETH FOREMAN RN * Mary Beth Foreman RN - 07/19/2019 11:00 AM CDT Midline left in place per Carlota Oleary NP * Yoana Ledbetter RN - 07/17/2019 2:51 PM CDT [facility] aware to send replacement to [facility] and pt needs wound vac at [place]. Ref# [id number] documented in this encounter OR Notes * Op Note - Stanislav Bishop MD - 07/17/2019 11:43 AM CDT Date of Procedure: 07/17/19 Preoperative Diagnosis: Procedure(s): Procedure(s): Sharp excisional Debridement of left gluteal fold decubitus ulcer 5 x 6 cm, wound VAC placement Post-operative Diagnosis: Same as above Surgeon(s): Stanislav Bishop MD Yarder Puncher: Circulating Nurse 1: Kelly Sr RN Scrub [...] (ABNORMAL) POCT glucose (07/19/2019 11:16 AM CDT) [facility] GLUCOSE POC 146(H) 70 - 99 MG/DL 07/19/2019 11:17 AM CDT [facility] LAB ORDERS INTERFACE 07/19/2019 11:1 6 AM CDT Donovan Oleary APRN POCT ORDERABLES - DEVICE Final Result [facility] LAB ORDERS INTERFACE US * POCT glucose (07/19/2019 7:23 AM CDT) GLUCOSE POC 84 70 - 99 MG/DL 07/19/2019 7:46 AM CDT [facility] LAB ORDERS INTERFACE 07/19/2019 7:23 AM CDT Donovan Oleary APRN POCT ORDERABLES - DEVICE Final Result [facility] LAB ORDERS INTERFACE US * (ABNORMAL) COMPREHENSIVE METABOLIC PANEL (07/19/2019 4:40 AM CDT) GLUCOSE 86 70 - 99 MG/DL 07/19/2019 6:01 AM CDT [facility] BUN 16 7 - 18 MG/DL 07/19/2019 6:01 AM CDT [facility] CREATININE S/P/B 0.83 0.55 - 1.02 MG/DL 07/19/2019 6:01 AM CDT [facility] SODIUM S/P/B 141 136 - 145 MMOL/L 07/19/2019 6:01 AM T [facility] POTASSIUM S/P/B 3.8 3.5 - 5.1 MMOL/L 07/19/2019 6:01 AM CDT [facility] CHLORIDE S/P/B 103 100 - 108 MMOL/L 07/19/2019 6:01 AM T [facility] CO2 32.8(H) 21 - 32 MMOL/L 07/19/2019 6:01 AM CDT [facility] CALCIUM S/P/B 8.7 8.5 - 10.1 MG/DL 07/19/2019 6:01 AM [facility] BILIRUBIN TOTAL S/P/B 0.4 0.2 - 1.2 MG/DL 07/19/2019 6:01 AM [facility] Comment: THIS ASSAY IS NOT RECOMMENDED FOR PATIENTS UNDERGOING TREATMENT WITH ELTROMBOPAG DUE TO THE POTENTIAL FOR FALSELY ELEVATED RESULTS. TOTAL PROTEIN S/P/B 6.7 6.4 - 8.2 G/DL 07/19/2019 6:01 AM [facility] ALBUMIN S/P/B 2.1(L) 3.4 - 5.0 G/DL 07/19/2019 6:01 AM [facility] AST 42(H) 15 - 37 U/L 07/19/2019 6:01 AM [facility] ALT 31 14 - 55 U/L 07/19/2019 6:01 AM [facility] ALKALINE PHOSPHATASE S/P/B 35(L) 50 - 136 U/L 07/19/2019 6:01 AM [facility] ANION GAP 5.2 5 - 15 MMOL/L 07/19/2019 6:01 AM [facility] BUN CREATININE RATIO 19.3 6 - 26 07/19/2019 6:01 AM [facility] A/G RATIO 0.5(L) 1.0 - 2.0 RATIO 07/19/2019 6:01 AM [facility] EGFR NON-AFR. AMER. 75(L) >90 ML/MIN/1.7 3 M2 07/19/2019 6:01 AM [facility] EGFR AFR. AMER. 86(L) >90 ML/MIN/1.7 3 M2 07/19/2019 6:01 AM [facility] Comment: NOTE: eGFR is not calculated for patients <18 years of age. This is an estimated GFR (CKD EPI) and should not be used for calculating drug doses. 07/19/2019 4:40 AM CDT Donovan Oleary APRN LABORATORY Final Re sult [facility] [address] [place] [address], [place] [phone] * (ABNORMAL) CBC W/DIFF AUTOMATED (07/19/2019 4:40 AM CDT) [facility] WBC 5.8 4.8 - 10.8 x10'3/uL 07/19/2019 5:16 AM CDT [facility] RBC 3.36(L) 4.10 - 5.10 x10'6/uL 07/19/2019 5:16 AM CDT [facility] HGB 9.7(L) 12.0 - 16.0 G/DL 07/19/2019 5:16 AM CDT [facility] HCT 31.8(L) 36 - 46 % 07/19/2019 5:16 AM CDT [facility] MCV 94.6 80 - 100 FL 07/19/2019 5:16 AM CDT [facility] MCH 28.9 26.0 - 34.0 PG 07/19/2019 5:16 AM CDT [facility] MCHC 30.5(L) 31.0 - 37.0 G/DL 07/19/2019 5:16 AM CDT [facility] RDW 16.5(H) 11.5 - 14.5 % 07/19/2019 5:16 AM CDT [facility] PLT 290 150 - 350 x10'3/uL 07/19/2019 5:16 AM CDT [facility] CBC COMMENT AUTOMATED RBC MORPHOLOGY AND PLATELET EVALUATION NORMAL 07/19/2019 5:16 AM CDT [facility] NEUTROPHILS % 56.8 50 - 70 % 07/19/2019 5:16 AM CDT [facility] LYMPHOCYTES % 25.0 18 - 42 % 07/19/2019 5:16 AM CDT [facility] MONOCYTES % 9.8 2.0 - 11.0 % 07/19/2019 5:16 AM CDT [facility] EOSINOPHILS 7.4(H) 1.0 - 3.0 % 07/19/2019 5:16 AM CDT [facility] BASOPHILS 1.0 0.0 - 1.0 % 07/19/2019 5:16 AM CDT [facility] ABS. NEUTROPHILS TOTAL 3.32 1.69 - 7.81 x10'3/uL 07/19/2019 5:16 AM CDT [facility] 07/19/2019 4:40 AM CDT Donovan Oleary APRN LABORATORY Final Re sult [facility] [address] [place] [address], * MAGNESIUM (07/19/2019 4:40 AM CDT) MAGNESIUM 2.0 1.8 - 2.4 MG/DL 07/19/2019 6:01 AM CDT [facility] 07/19/2019 4:40 AM CDT Marlon Kenny MD LABORATORY Final Result [facility] [address] [place] [address], * (ABNORMAL) POCT glucose (07/18/2019 7:19 PM CDT) GLUCOSE POC 232(H) 70 - 99 MG/DL 07/18/2019 7:27 PM CDT [facility] LAB ORDERS INTERFACE 07/18/2019 7:19 PM CDT us Donovan Oleary SLATE TRIMMER POCT ORDERABLES - DEVICE Final Result Performing Organization Address [facility] Co de Phone Number [facility] LAB ORDERS INTERFACE US * (ABNORMAL) POCT glucose (07/18/2019 4:38 PM CDT) GLUCOSE POC 179(H) 70 - 99 MG/DL 07/18/2019 4:41 PM CDT [facility] LAB ORDERS INTERFACE 07/18/2019 4:38 PM CDT Donovan Oleary SLATE TRIMMER POCT ORDERABLES - DEVICE Final Result Performing Organization Address [facility] de Phone Number [facility] LAB ORDERS INTERFACE US * (ABNORMAL) POCT glucose (07/18/2019 11:35 AM CDT) GLUCOSE POC 194(H) 70 - 99 MG/DL 07/18/2019 11:37 AM CDT [facility] LAB ORDERS INTERFACE 07/18/2019 11:3 5 AM CDT Donovan Oleary APRN POCT ORDERABLES - DEVICE Final Result Performing Organization Address [facility] de Phone Number [facility] LAB ORDERS INTERFACE US * (ABNORMAL) POCT glucose (07/18/2019 7:38 AM CDT) GLUCOSE POC 131(H) 70 - 99 MG/DL 07/18/2019 7:43 AM CDT [facility] LAB ORDERS INTERFACE 07/18/2019 7:38 AM CDT Donovan Oleary SLATE TRIMMER POCT ORDERABLES - DEVICE Final Result Performing Organization Address [facility] Co de Phone Number [facility] LAB ORDERS INTERFACE US * (ABNORMAL) COMPREHENSIVE METABOLIC PANEL (07/18/2019 5:05 AM CDT) GLUCOSE 183(H) 70 - 99 MG/DL 07/18/2019 5:58 AM CDT [facility] BUN 16 7 - 18 MG/DL 07/18/2019 5:58 AM CDT [facility] CREATININE S/P/B 0.96 0.55 - 1.02 MG/DL 07/18/2019 5:58 AM CDT [facility] SODIUM S/P/B 139 136 - 145 MMOL/L 07/18/2019 5:58 AM T [facility] POTASSIUM S/P/B 4.0 3.5 - 5.1 MMOL/L 07/18/2019 5:58 AM CDT [facility] CHLORIDE S/P/B 102 100 - 108 MMOL/L 07/18/2019 5:58 AM T [facility] CO2 32.7(H) 21 - 32 MMOL/L 07/18/2019 5:58 AM T [facility] CALCIUM S/P/B 8.1(L) 8.5 - 10.1 MG/DL 07/18/2019 5:58 AM T [facility] BILIRUBIN TOTAL S/P/B 0.4 0.2 - 1.2 MG/DL 07/18/2019 5:58 AM T [facility] Comment: THIS ASSAY IS NOT RECOMMENDED FOR PATIENTS UNDERGOING TREATMENT WITH ELTROMBOPAG DUE TO THE POTENTIAL FOR FALSELY ELEVATED RESULTS. TOTAL PROTEIN S/P/B 6.4 6.4 - 8.2 G/DL 07/18/2019 5:58 AM CDT [facility] ALBUMIN S/P/B 1.9(L) 3.4 - 5.0 G/DL 07/18/2019 5:58 AM T [facility] AST 38(H) 15 - 37 U/L 07/18/2019 5:58 AM CDT [facility] ALT 30 14 - 55 U/L 07/18/2019 5:58 AM CDT [facility] ALKALINE PHOSPHATASE S/P/B 36(L) 50 - 136 U/L 07/18/2019 5:58 AM CDT [facility] ANION GAP 4.3(L) 5 - 15 MMOL/L 07/18/2019 5:58 AM CDT [facility] BUN CREATININE RATIO 16.7 6 - 26 07/18/2019 5:58 AM CDT [facility] A/G RATIO 0.4(L) 1.0 - 2.0 RATIO 07/18/2019 5:58 AM T [facility] EGFR NON-AFR. AMER. 62(L) >90 ML/MIN/1.7 3 M2 07/18/2019 5:58 AM T [facility] EGFR AFR. AMER. 72(L) >90 ML/MIN/1.7 3 M2 07/18/2019 5:58 AM T [facility] Comment: NOTE: eGFR is not calculated for patients <18 years of age. This is an estimated GFR (CKD EPI) and should not be used for calculating drug doses. 07/18/2019 5:05 AM CDT Donovan Oleary APRN LABORATORY Final Re sult [facility] [address] [place] [address], [place] [phone] * (ABNORMAL) CBC W/DIFF AUTOMATED (07/18/2019 5:05 AM CDT) WBC 5.6 4.8 - 10.8 x10'3/uL 07/18/2019 5:41 AM CDT [facility] RBC 3.12(L) 4.10 - 5.10 x10'6/uL 07/18/2019 5:41 AM CDT [facility] HGB 9.4(L) 12.0 - 16.0 G/DL 07/18/2019 5:41 AM T [facility] HCT 29.3(L) 36 - 46 % 07/18/2019 5:41 AM CDT [facility] MCV 93.9 80 - 100 FL 07/18/2019 5:41 AM CDT [facility] MCH 30.1 26.0 - 34.0 PG 07/18/2019 5:41 AM T [facility] MCHC 32.1 31.0 - 37.0 G/DL 07/18/2019 5:41 AM T [facility] RDW 16.4(H) 11.5 - 14.5 % 07/18/2019 5:41 AM T [facility] PLT 288 150 - 350 x10'3/uL 07/18/2019 5:41 AM [facility] CBC COMMENT AUTOMATED RBC MORPHOLOGY AND PLATELET EVALUATION NORMAL 07/18/2019 5:41 AM T [facility] NEUTROPHILS % 60.9 50 - 70 % 07/18/2019 5:41 AM T [facility] LYMPHOCYTES % 23.2 18 - 42 % 07/18/2019 5:41 AM T [facility] MONOCYTES % 7.6 2.0 - 11.0 % 07/18/2019 5:41 AM T [facility] EOSINOPHILS 7.2(H) 1.0 - 3.0 % 07/18/2019 5:41 AM T [facility] BASOPHILS 1.1(H) 0.0 - 1.0 % 07/18/2019 5:41 AM T [facility] ABS. NEUTROPHILS TOTAL 3.39 1.69 - 7.81 x10'3/uL 07/18/2019 5:41 AM CDT [facility] 07/18/2019 5:05 AM CDT Donovan Oleary APRN LABORATORY Final Re sult Performing Organization Address City/[facility]/ZIP Co de Phone Number [facility] [address] [place] [address], * MAGNESIUM (07/18/2019 5:05 AM CDT) MAGNESIUM 2.0 1.8 - 2.4 MG/DL 07/18/2019 5:58 AM CDT [facility] 07/18/2019 5:05 AM CDT Marlon Kenny MD LABORATORY Final Result Performing Organization Address [facility] Co de Phone Number [facility] [address] [place] [address], * (ABNORMAL) CK (CPK) (07/18/2019 5:05 AM CDT) CPK 302(H) 26 - 192 U/L 07/18/2019 5:58 AM CDT [facility] 07/18/2019 5:05 AM CDT Marlon Kenny MD LABORATORY Final Result Performing Organization Address City/[facility]/ZIP Co de Phone Number [facility] [address] [place] [address], * (ABNORMAL) POCT glucose (07/17/2019 7:50 PM CDT) GLUCOSE POC 166(H) 70 - 99 MG/DL 07/17/2019 8:01 PM CDT [facility] ORDERS INTERFACE 07/17/2019 7:50 PM CDT Donovan Oleary SLATE TRIMMER POCT ORDERABLES - DEVICE Final Result Performing Organization Address [facility] Phone Number [facility] LAB ORDERS INTERFACE US * (ABNORMAL) POCT glucose (07/17/2019 5:33 PM CDT) GLUCOSE POC 141(H) 70 - 99 MG/DL 07/17/2019 5:34 PM CDT [facility] LAB ORDERS INTERFACE 07/17/2019 5:33 PM CDT Donovan Oleary SLATE TRIMMER POCT ORDERABLES - DEVICE Final Result Performing Organization Address [facility] Phone Number [facility] LAB ORDERS INTERFACE US * (ABNORMAL) POCT glucose (07/17/2019 2:19 PM CDT) GLUCOSE POC 101(H) 70 - 99 MG/DL 07/17/2019 2:22 PM CDT [facility] LAB ORDERS INTERFACE 07/17/2019 2:19 PM CDT Donovan Oleary APRN POCT ORDERABLES - DEVICE Final Result Performing Organization Address [facility] Phone Number [facility] LAB ORDERS INTERFACE US * (ABNORMAL) POCT glucose (07/17/2019 1:11 PM CDT) GLUCOSE POC 69(L) 70 - 99 MG/DL 07/17/2019 1:12 PM CDT [facility] LAB ORDERS INTERFACE 07/17/2019 1:11 PM CDT Donovan Oleary SLATE TRIMMER POCT ORDERABLES - DEVICE Final Result Performing Organization Address [facility] Phone Number [facility] LAB ORDERS INTERFACE US * (ABNORMAL) CULTURE, ANAEROBIC (07/17/2019 11:00 AM CDT) SPEC DESCRIPTION BUTTOCK,LEFT 07/17/2019 5:18 PM CDT [facility] SPECIAL REQUESTS NO SPECIAL REQUEST 07/17/2019 5:18 PM CDT [facility] GRAM STAIN RESULT MANY WHITE BLOOD CELLS SEEN 07/18/2019 12:15 PM CDT [facility] GRAM STAIN RESULT MANY RED BLOOD CELLS SEEN 07/18/2019 12:15 PM CDT [facility] GRAM STAIN RESULT MANY GRAM NEGATIVE RODS 07/18/2019 12:15 PM CDT [facility] GRAM STAIN RESULT FEW GRAM POSITIVE COCCI 07/18/2019 12:15 PM CDT [facility] CULTURE RESULT HEAVY GROWTH OF ESCHERICHIA COLI SUSCEPTIBILITY ON PREVIOUS SPECIMEN [id number] (A) 07/22/2019 9:52 AM CDT [facility] CULTURE RESULT LIGHT GROWTH OF VANCOMYCIN RESISTANT ENTEROCOCCUS FAECALIS SUSCEPTIBILITY ON PREVIOUS SPECIMEN [id number] (A) 07/22/2019 9:52 AM CDT [facility] CULTURE RESULT LIGHT GROWTH OF BACTEROIDES THETAIOTAOMICRON BETA LACTAMASE POSITIVE SUSCEPTIBILTY NOT ROUTINELY PERFORMED. SAVING ISOLATE FOR 5 DAYS. CONTACT MICROBIOLOGY DEPARTMENT IF FURTHER WORKUP IS INDICATED. (A) 07/22/2019 9:52 AM CDT [facility] CULTURE RESULT NOTE: ANAEROBIC CULTURES ARE ROUTINELY SCREENED FOR BOTH AEROBIC AND ANAEROBIC ORGANISMS. 07/22/2019 9:52 AM CDT [facility] STRUCTURE OF LEFT BUTTOCK / Unknown 07/17/2019 11:00 AM CDT 07/17/2019 6:58 PM CDT us Donovan Oleary APRN MICROBIOLOGY - GENERAL O RDERABLES Final Result [facility] [address] [place] [address], [facility] [address] [place] [address], [place] [phone] * (ABNORMAL) CULTURE, ANAEROBIC (07/17/2019 11:00 AM CDT) SPEC DESCRIPTION BUTTOCK,LEFT 07/17/2019 5:18 PM CDT [facility] SPECIAL REQUESTS NO SPECIAL REQUEST 07/17/2019 5:18 PM CDT [facility] GRAM STAIN RESULT RARE WHITE BLOOD CELLS SEEN 07/18/2019 12:09 PM CDT [facility] GRAM STAIN RESULT RARE RED BLOOD CELLS SEEN 07/18/2019 12:09 PM CDT [facility] GRAM STAIN RESULT MANY GRAM NEGATIVE RODS 07/18/2019 12:09 PM T [facility] GRAM STAIN RESULT RARE GRAM POSITIVE COCCI 07/18/2019 12:09 PM CDT [facility] CULTURE RESULT HEAVY GROWTH OF ESCHERICHIA COLI (A) 07/22/2019 9:51 AM T [facility] CULTURE RESULT LIGHT GROWTH OF VANCOMYCIN RESISTANT ENTEROCOCCUS FAECALIS (A) 07/22/2019 9:51 AM T [facility] CULTURE RESULT MODERATE GROWTH OF BACTEROIDES THETAIOTAOMICRON BETA LACTAMASE POSITIVE SUSCEPTIBILTY NOT ROUTINELY PERFORMED. SAVING ISOLATE FOR 5 DAYS. CONTACT MICROBIOLOGY DEPARTMENT IF FURTHER WORKUP IS INDICATED. (A) 07/22/2019 9:51 AM T [facility] CULTURE RESULT NOTE: ANAEROBIC CULTURES ARE ROUTINELY SCREENED FOR BOTH AEROBIC AND ANAEROBIC ORGANISMS. 07/22/2019 9:51 AM T [facility] STRUCTURE OF LEFT BUTTOCK / [...] MICROBIOLOGY - GENERAL O RDERABLES Final Result [facility] [address] [place] [address], [place] [phone] [facility] [address] [place] [address], [place] [phone] * POCT glucose (07/17/2019 7:17 AM CDT) GLUCOSE POC 73 70 - 99 MG/DL 07/17/2019 7:24 AM CDT [facility] ORDERS INTERFACE 07/17/2019 7:17 AM CDT Donovan Oleary APRN POCT ORDERABLES - DEVICE Final Result [facility] ORDERS INTERFACE US * MAGNESIUM (07/17/2019 4:00 AM CDT) MAGNESIUM 2.2 1.8 - 2.4 MG/DL 07/17/2019 8:12 AM CDT [facility] 07/17/2019 4:00 AM CDT us Marlon Kenny MD LABORATORY Final Result [facility] [address] [place] [address], [place] [phone] * TYPE & SCREEN (07/17/2019 4:00 AM CDT) UNITS ORDERED 1 07/17/2019 6:11 AM CDT [facility] ABO/RH O POSITIVE 07/17/2019 6:11 AM CDT [facility] ANTIBODY SCREEN NEGATIVE 0 6:11 AM CDT [facility] SAMPLE EXPIRATION 07/20/2019,2359 07/17/2019 6:11 AM CDT [facility] BLOOD UNIT NUMBER [id number] 07/17/2019 8:19 AM CDT [facility] PRODUCT: PC LEUKOPOOR 07/17/2019 8:19 AM CDT [facility] UNIT DIVISION 00 07/17/2019 8:19 AM CDT [facility] BLOOD UNIT STATUS TRANSFUSED,FINAL 07/18/2019 4:19 PM CDT [facility] ISSUE DATE/TIME [id number] 020 4:19 PM CDT [facility] PRODUCT CODE [id number] 07/18/2019 4:19 PM CDT [facility] ABO/RH Unit O POS 07/18/2019 4:19 PM CDT [facility] ABO/RH UNIT ISBT CODE 5100 07/18/2019 4:19 PM CDT [facility] BLOOD UNIT EXPIRATION DATE [id number] 07/18/2019 4:19 PM CDT [facility] TRANSFUSION STATUS OK TO TRANSFUSE 07/17/2019 8:19 AM CDT [facility] CROSSMATCH COMPATIBLE 07/17/2019 8:19 AM CDT [facility] 07/17/2019 4:00 AM CDT us Marlon Kenny MD BLOOD BANK TEST ORDERABLES Final Result [facility] [address] [place] [address], [place] [phone] * (ABNORMAL) CBC W/DIFF AUTOMATED (07/17/2019 4:00 AM CDT) WBC 4.9 4.8 - 10.8 x10'3/uL 07/17/2019 4:46 AM CDT [facility] RBC 2.66(L) 4.10 - 5.10 x10'6/uL 07/17/2019 4:46 AM CDT [facility] HGB 7.7(L) 12.0 - 16.0 G/DL 07/17/2019 4:46 AM T [facility] HCT 24.7(L) 36 - 46 % 07/17/2019 4:46 AM CDT [facility] MCV 92.9 80 - 100 FL 07/17/2019 4:46 AM CDT [facility] MCH 28.9 26.0 - 34.0 PG 07/17/2019 4:46 AM CDT [facility] MCHC 31.2 31.0 - 37.0 G/DL 07/17/2019 4:46 AM CDT [facility] RDW 16.8(H) 11.5 - 14.5 % 07/17/2019 4:46 AM CDT [facility] PLT 309 150 - 350 x10'3/uL 07/17/2019 4:46 AM CDT [facility] CBC COMMENT AUTOMATED RBC MORPHOLOGY AND PLATELET EVALUATION NORMAL 07/17/2019 4:46 AM CDT [facility] NEUTROPHILS % 56.8 50 - 70 % 07/17/2019 4:46 AM CDT [facility] LYMPHOCYTES % 26.8 18 - 42 % 07/17/2019 4:46 AM CDT [facility] MONOCYTES % 8.4 2.0 - 11.0 % 07/17/2019 4:46 AM CDT [facility] EOSINOPHILS 7.0(H) 1.0 - 3.0 % 07/17/2019 4:46 AM CDT [facility] BASOPHILS 1.0 0.0 - 1.0 % 07/17/2019 4:46 AM CDT [facility] ABS. NEUTROPHILS TOTAL 2.78 1.69 - 7.81 x10'3/uL 07/17/2019 4:46 AM T [facility] 07/17/2019 4:00 AM CDT Marlon Kenny MD LABORATORY Final Result [facility] [address] [place] [address], * (ABNORMAL) BASIC METABOLIC PANEL (07/17/2019 4:00 AM CDT) GLUCOSE 103(H) 70 - 99 MG/DL 07/17/2019 8:12 AM CDT [facility] BUN 14 7 - 18 MG/DL 07/17/2019 8:12 AM CDT [facility] CREATININE S/P/B 0.88 0.55 - 1.02 MG/DL 07/17/2019 8:12 AM CDT [facility] SODIUM S/P/B 141 136 - 145 MMOL/L 07/17/2019 8:12 AM CDT [facility] POTASSIUM S/P/B 4.0 3.5 - 5.1 MMOL/L 07/17/2019 8:12 AM CDT [facility] CHLORIDE S/P/B 103 100 - 108 MMOL/L 07/17/2019 8:12 AM CDT [facility] CO2 31.7 21 - 32 MMOL/L 07/17/2019 8:12 AM T [facility] CALCIUM S/P/B 8.2(L) 8.5 - 10.1 MG/DL 07/17/2019 8:12 AM T [facility] ANION GAP 6.3 5 - 15 MMOL/L 07/17/2019 8:12 AM T [facility] BUN CREATININE RATIO 15.9 6 - 26 07/17/2019 8:12 AM T [facility] EGFR NON-AFR. AMER. 69(L) >90 ML/MIN/1.7 3 M2 07/17/2019 8:12 AM T [facility] EGFR AFR. AMER. 80(L) >90 ML/MIN/1.7 3 M2 07/17/2019 8:12 AM T [facility] Comment: NOTE: eGFR is not calculated for patients <18 years of age. This is an estimated GFR (CKD EPI) and should not be used for calculating drug doses. 07/17/2019 4:00 AM CDT Marlon Kenny MD LABORATORY Final Result [facility] [address] [place] [address], * (ABNORMAL) POCT glucose (07/16/2019 8:13 PM CDT) GLUCOSE POC 182(H) 70 - 99 MG/DL 07/16/2019 8:26 PM CDT [facility] ORDERS INTERFACE 07/16/2019 8:13 PM CDT us Marlon Kenny MD POCT ORDERABLES - DEVICE Final R esult [facility] ORDERS INTERFACE US documented in this [...] IV 2 g, Intravenous, at 240 mL/hr, inbound call center representative to O.R., 1 dose, First dose on [...] Discharge Readmit 0900 (Hold - Provider: Jodi Aisf RN - Reason: Other - Comment: surgery)1024 (MAY Hold - Provider: User Groove - Reason: Unreviewed Transfer Orders)1227 (MAR Unhold - Provider: User Groove) 0808 (Given - Provider: Yoana Ledbetter RN) [...] (COMPLETED) 2 g, Intravenous, at 240 mL/hr, inbound call center representative to O.R., 1 dose, First dose on [...] RN - Reason: Other - Comment: surgery)1024 ([facility] Hold - Provider: User Epic - Reason: Unreviewed Transfer Orders)1227 ([facility] Unhold - Provider: User Epic)2128 (Given - Provider: Eloisa Chaidez RN) 0808 (Given - Provider: Yoana Ledbetter RN)2122 (Given - Provider: Jaylin Veliz RN) 0726 (Given - Provider: Mary Beth Foreman, SPENCER) insulin glargine (LANTUS) injection 15 Units 15 Units, Subcutaneous, Nightly at bedtime, First dose (after last modification) on Mon07/16/19 at 2100, Until Discontinued, Discharge Readmit 1024 ([facility] Hold - Provider: User Epic - Reason: Unreviewed Transfer Orders)1227 ([facility] Unhold - Provider: User Epic)2130 [...] documented as of this encounter Care Teams [employer] Relationship Specialty Start Date End Date Don Branham MD [address] [place] [address] PCP - General EMERGENCY MEDICINE 05/10/19 Damon Swanson MD INTERNAL MEDICINE 12/10/18 documented as of this encounter
--- OUTSIDE RECORDS SUMMARY | 2024-02-27 03:25 | XMS_ITS | Encounter Summary ---
Author Organization [facility] Address [address] [place] [address]. [place] [address] [place] [address] Care Team Providers Care Sleep Scientist Name Role Phone Damon Swanson MD Unavailable [phone] Don Branham MD Primary Care Provider [phone] Reason for Visit * Auth/Cert Specialty Diagnoses / Procedures Referred By Contac t Referred To Contact Diagnoses Infected decubitus ulcer Procedures INP Referral ID Status Reason Start Date Expiration Date Visits Re quested Visits Authorized [id number] 1 1 Encounter Details Date Type Department Care Team (Late st Contact Info) Description 07/17/2019 10:30 AM CDT - 07/17/2019 12:08 PM CDT Surgery [facility] [address] [place] [address] [place] [address] [place] [id number] Debridement left gluteal fold, wound VAC placement [...] required due to: Wound care and ongoing senior living Primary Diagnoses: Infected decubitus ulcers Secondary Diagnosis: [...] 07/04/2019 STAR Report Pat.Name: IRIS PASCUAL Gema.ID: [id number] .Date: 07/04/2019 Exam Time: 12:56:00 PM Study Type:TRANSESOPHAGEAL ECHO (STAR) Height: 62in Weight: 167.65lb BSA: 1.77 m2 Age: 11 1955,64Y Sex: FEMALE BP: 147/68 HR: 67 bpm Sonogrphr: Lacie Victor [facility] Pat. Stat.:Inpatient Reason for Study: Bacteremia History [...] 06/30/2019 Echocardiography Report Pat.Name: IRIS PASCUAL Gema.ID: [id number] .Date: 06/30/2019 Exam Time: 12:31:00 PM Study [...] 31.9 mm Right Ventricle 24.4 mm Major Berclair 82.7 mm MMODE TA Tricuspid Annul 12.6 [...] medications were sent to [facility] - [address] [address] ?? levoFLOXacin 500 MG tablet You can get these medications from any pharmacy Bring a paper prescription for each of these medications ?? fluconazole 200 MG tablet ?? lactobacillus Tabs ?? linezolid 600 MG tablet Disposition: Jail Facility Patient Instructions: Activity: activity as tolerated Diet: Diet Carb Controlled Appropriate; 60g/meal Wound Care: as directed Therapy Ordered: Physical Therapy: Evaluate and Treat custodial: Evaluate and treat Follow-up appointments: Rounding physician [...] Patient may need further wound care at senior living facility. Recommend continued following by senior living. If needed, patient follow-up with general surgery [...] consume extra protein of your choice (cheese, upper sorbian yogurt, nuts, eggs, meat, peanut butter) at [...] and transition of care will begin at [facility] in [facility]. Full report provided to fci for continuity of care. Medical record sent. Patient aware of transfer social media job titles contacted patient's daughter Celina and she is aware of patient discharge and transfer to [facility] in [place] [employer]. Patient was been a resident there prior. Patient is alert, oriented, and aware of transfer. Patient will transfer by ambulance. Wound vac needs to be meet at fci. No other services indicated. Case is closed. [...] VAC placement Plan: OK to discharge to fci from surgical standpoint Wound VAC should be [...] Outcome: Progressing Note: Plan to discharge to senior living facility for continued care on multiple ulcers. Problem: Pain control/comfort Goal: Promote pain control/comfort Outcome: Progressing Note: No c/o pain, patient resting comfortably, repositioning q2h. Problem: Skin integrity, Impaired-wound Goal: Absence of new skin breakdown Outcome: Progressing Note: No new skin breakdown. Goal: Evidence of wound healing Outcome: Progressing * Genesis Castellanos LCSW - 07/18/2019 2:47 PM CDT foundry worker spoke with Katie at [facility] and rehab in [facility]. [facility] is aware of patient's needs. Wound VAC etc..., Patient to go by ambulance. Supervisor Of Way will follow. * Yoana Ledbetter RN - [...] with [facility] ADLS Prior Function Level of [place] Independent with functional transfers;Independent with ambulation;Needs assistance [...] with [facility] ADLS Prior Function Level of [place] Independent with functional transfers;Independent with ambulation;Needs assistance [...] 32.62 kg/m??. BMI Assessment: Grade 1 Obesity Enterprise Body Weight: 110 pounds Percent [place] Body Weight: 162% Usual Body Weight: 195 pounds in May Percent Usual Body Weight: 91% x 2 months Percent Weight Loss: 9% over the past 2 months Nutrition: Current Diet Order: Diet Carb Controlled Appropriate; 60g/meal Diet Comment: Patient lives at home by herself but most likely will transition to a fci for further care. Patient appears to have 9% wt loss in past 30 days. Chewing/swallowing problems: No Food allergies/intolerances: none Cultural/Restorationism food preferences: none Current diet appropriate? Yes Current intake sufficient to meet nutritional needs? Patient is consuming 100% of meals; therefore is getting 1874 kcal and 91 grams of protein on average which meets estimated nutritional needs. Pain affecting PO intake? No Estimated Nutrient Needs: Calories: 0632-5372 kcal/day, based on 20 kcal/kg Protein: 91 [...] 07/04/2019 STAR Report Pat.Name: IRIS PASCUAL Gema.ID: [id number] St.Date: 07/04/2019 Exam Time: 12:56:00 PM Study Type:TRANSESOPHAGEAL ECHO (STAR) Height: 62in Weight: 167.65lb BSA: 1.77 m2 Age: 11 1955,64Y Sex: FEMALE BP: 147/68 HR: 67 bpm Sonogrphr: Lacie Victor [facility] Pat. Stat.:Inpatient Reasonfor Study: Bacteremia History / [...] Date: 06/30/2019 Echocardiography Report Pat.Name: IRIS PASCUALID: [id number] .Date: 06/30/2019 Exam Time: 12:31:00 PM Study [...] 31.9 mm Right Ventricle 24.4 mm Major Berclair 82.7 mm MMODE TA Tricuspid Annul 12.6 [...] recommendations from the CDC and WHO DONOVAN OLERAY, AUDIOLOGY TECHNICIAN 07/18/2019 9:24 AM Cosigned by Ekaterina Barlow [...] plan remains for patient to transfer to [facility] in [facility], Telephone number there is [phone] fax number is [phone] and call Katie at [phone] for updates. foundry worker will follow. * Viviana Beard RN - 07/17/2019 11:01 AM CDT 07/16 inpatient IM letter signed by the patient this am- understood acknowledged * Renay Barba OT - 07/17/2019 10:14 AM CDT OT evaluation orders received as patient transferred back to inpatient status from [facility]. Evaluation not completed this date as [...] file Gets together: Not on file Attends confucianism service: Not on file Active member of [...] SCREEN NEGATIVE SAMPLE EXPIRATION: 07/20/2019,2359 UNIT NUMBER [id number] PRODUCT: PC LEUKOPOOR UNIT DIVISION 00 UNIT [...] STAR Report Pat.Name: IRIS PASCUAL Nathan Ribeiro.ID: [id number] .Date: 07/04/2019 Exam Time: 12:56:00 PM Study Type:TRANSESOPHAGEAL ECHO (STAR) Height: 62in Weight: 167.65lb BSA: 1.77 m2 Age: 11 1955,64Y Sex: FEMALE BP: 147/68 HR: 67 bpm Sonogrphr: Lacie Victor [facility] Pat. Stat.:Inpatient Reason for Study: Bacteremia History [...] 06/30/2019 Echocardiography Report Pat.Name: IRIS PASCUAL Gema.ID: [id number] St.Date: 06/30/2019 Exam Time: 12:31:00 PM Study [...] 31.9 mm Right Ventricle 24.4 mm Major Berclair 82.7 mm MMODE TA Tricuspid Annul 12.6 [...] Question: Reason for Consult? Answer: [facility] Order Specific Question: Has the consulting provider [...] CDT Nursing report called to Sven at [facility] MARY BETH FOREMAN RN * Mary Beth Foreman RN - 07/19/2019 1:05 PM CDT Spoke to Jamel with [facility] to stop therapy on wound vac [id number]. REF [id number]. MARY BETH FOREMAN RN * Mary Beth Foreman RN - 07/19/2019 12:51 PM CDT Attempted to call nursing report to [facility] three times. Was transferred to a voicemail.[facility] answered and made aware that ambulance is headed there way and it is appox [address] MARY BETH FOREMAN RN * Mary Beth Foreman RN - 07/19/2019 11:00 AM CDT Midline left in place per Carlota Oleary NP * Yoana Ledbetter RN - 07/17/2019 2:51 PM CDT [facility] aware to send replacement to [facility] and pt needs wound vac at [facility]. Ref# [id number] documented in this encounter OR Notes * Op Note - Stanislav Bishop MD - 07/17/2019 11:43 AM CDT Date of Procedure: 07/17/19 Preoperative Diagnosis: Procedure(s): Procedure(s): Sharp excisional Debridement of left gluteal fold decubitus ulcer 5 x 6 cm, wound VAC placement Post-operative Diagnosis: Same as above Surgeon(s): Stanislav Bishop MD Hand Molder And Caster: Circulating Nurse 1: Kelly Sr RN Scrub [...] AM CDT [facility] ORDERS INTERFACE 07/19/2019 11:1 6 AM CDT Donovan Oleary APRN POCT ORDERABLES - DEVICE Final Result Performing Organization Address [facility] Co de Phone Number [facility] ORDERS INTERFACE US * POCT glucose (07/19/2019 7:23 AM CDT) GLUCOSE POC 84 70 - 99 MG/DL 07/19/2019 7:46 AM CDT [facility] ORDERS INTERFACE 07/19/2019 7:23 AM CDT Donovan Oleary APRN POCT ORDERABLES - DEVICE Final Result Performing Organization Address [facility] Co de Phone Number [facility] ORDERS INTERFACE US * (ABNORMAL) COMPREHENSIVE METABOLIC PANEL (07/19/2019 4:40 AM CDT) GLUCOSE 86 70 - 99 MG/DL 07/19/2019 6:01 AM CDT [facility] BUN 16 7 - 18 MG/DL 07/19/2019 6:01 AM CDT [facility] CREATININE S/P/B 0.83 0.55 - 1.02 MG/DL 07/19/2019 6:01 AM CDT [facility] SODIUM S/P/B 141 136 - 145 MMOL/L 07/19/2019 6:01 AM CDT [facility] POTASSIUM S/P/B 3.8 3.5 - 5.1 MMOL/L 07/19/2019 6:01 AM [facility] CHLORIDE S/P/B 103 100 - 108 MMOL/L 07/19/2019 6:01 AM [facility] CO2 32.8(H) 21 - 32 MMOL/L 07/19/2019 6:01 AM [facility] CALCIUM S/P/B 8.7 8.5 - 10.1 MG/DL 07/19/2019 6:01 AM [facility] BILIRUBIN TOTAL S/P/B 0.4 0.2 - 1.2 MG/DL 07/19/2019 6:01 AM [facility] Comment: THIS ASSAY IS NOT RECOMMENDED FOR PATIENTS UNDERGOING TREATMENT WITH ELTROMBOPAG DUE TO THE POTENTIAL FOR FALSELY ELEVATED RESULTS. TOTAL PROTEIN S/P/B 6.7 6.4 - 8.2 G/DL 07/19/2019 6:01 AM [facility] ALBUMIN S/P/B 2.1(L) 3.4 - 5.0 G/DL 07/19/2019 6:01 AM [facility] AST 42(H) 15 - 37 U/L 07/19/2019 6:01 AM [facility] ALT 31 14 - 55 U/L 07/19/2019 6:01 AM [facility] ALKALINE PHOSPHATASE S/P/B 35(L) 50 - 136 U/L 07/19/2019 6:01 AM [facility] ANION GAP 5.2 5 - 15 MMOL/L 07/19/2019 6:01 AM [facility] BUN CREATININE RATIO 19.3 6 - 26 07/19/2019 6:01 AM [facility] A/G RATIO 0.5(L) 1.0 - 2.0 RATIO 07/19/2019 6:01 AM CDT [facility] EGFR NON-AFR. AMER. 75(L) >90 ML/MIN/1.7 3 M2 07/19/2019 6:01 AM CDT [facility] EGFR AFR. AMER. 86(L) >90 ML/MIN/1.7 3 M2 07/19/2019 6:01 AM CDT [facility] Comment: NOTE: eGFR is not calculated for patients <18 years of age. This is an estimated GFR (CKD EPI) and should not be used for calculating drug doses. 07/19/2019 4:40 AM CDT Donovan Oleary APRN LABORATORY Final Re sult [facility] [address] [place] [address], * (ABNORMAL) CBC W/DIFF AUTOMATED (07/19/2019 4:40 AM CDT) WBC 5.8 4.8 - 10.8 x10'3/uL 07/19/2019 5:16 AM CDT [facility] RBC 3.36(L) 4.10 - 5.10 x10'6/uL 07/19/2019 5:16 AM CDT [facility] HGB 9.7(L) 12.0 - 16.0 G/DL 07/19/2019 5:16 AM CDT [facility] HCT 31.8(L) 36 - 46 % 07/19/2019 5:16 AM CDT [facility] MCV 94.6 80 - 100 FL 07/19/2019 5:16 AM CDT [facility] MCH 28.9 26.0 - 34.0 PG 07/19/2019 5:16 AM CDT [facility] MCHC 30.5(L) 31.0 - 37.0 G/DL 07/19/2019 5:16 AM CDT [facility] RDW 16.5(H) 11.5 - 14.5 % 07/19/2019 5:16 AM CDT [facility] PLT 290 150 - 350 x10'3/uL 07/19/2019 5:16 AM CDT [facility] CBC COMMENT AUTOMATED RBC MORPHOLOGY AND PLATELET EVALUATION NORMAL 07/19/2019 5:16 AM CDT [facility] NEUTROPHILS % 56.8 50 - 70 % 07/19/2019 5:16 AM CDT [facility] LYMPHOCYTES % 25.0 18 - 42 % 07/19/2019 5:16 AM CDT [facility] MONOCYTES % 9.8 2.0 - 11.0 % 07/19/2019 5:16 AM CDT [facility] EOSINOPHILS 7.4(H) 1.0 - 3.0 % 07/19/2019 5:16 AM CDT [facility] BASOPHILS 1.0 0.0 - 1.0 % 07/19/2019 5:16 AM CDT [facility] ABS. NEUTROPHILS TOTAL 3.32 1.69 - 7.81 x10'3/uL 07/19/2019 5:16 AM T [facility] 07/19/2019 4:40 AM CDT us Donovan Oleary APRN LABORATORY Final Re sult [facility] [address] [place] [address], * MAGNESIUM (07/19/2019 4:40 AM CDT) MAGNESIUM 2.0 1.8 - 2.4 MG/DL 07/19/2019 6:01 AM CDT [facility] 07/19/2019 4:40 AM CDT Marlon Kenny MD LABORATORY Final Result [facility] [address] [place] [address], [place] [phone] * (ABNORMAL) POCT glucose (07/18/2019 7:19 PM CDT) GLUCOSE POC 232(H) 70 - 99 MG/DL 07/18/2019 7:27 PM CDT [facility] ORDERS INTERFACE 07/18/2019 7:19 PM CDT us Donovan Oleary APRN POCT ORDERABLES - DEVICE Final Result Performing Organization Address [facility] Co de Phone Number [facility] ORDERS INTERFACE US * (ABNORMAL) POCT glucose (07/18/2019 4:38 PM CDT) GLUCOSE POC 179(H) 70 - 99 MG/DL 07/18/2019 4:41 PM CDT [facility] ORDERS INTERFACE 07/18/2019 4:38 PM CDT us Donovan Oleary APRN POCT ORDERABLES - DEVICE Final Result Performing Organization Address [facility]/ZIP Co de Phone Number [facility] ORDERS INTERFACE US * (ABNORMAL) POCT glucose (07/18/2019 11:35 AM CDT) GLUCOSE POC 194(H) 70 - 99 MG/DL 07/18/2019 11:37 AM CDT [facility] ORDERS INTERFACE 07/18/2019 11:3 5 AM CDT us Donovan Oleary AUDIOLOGY TECHNICIAN POCT ORDERABLES - DEVICE Final Result Performing Organization Address City/[facility]/ZIP Co de Phone Number [facility] ORDERS INTERFACE US * (ABNORMAL) POCT glucose (07/18/2019 7:38 AM CDT) GLUCOSE POC 131(H) 70 - 99 MG/DL 07/18/2019 7:43 AM CDT [facility] ORDERS INTERFACE 07/18/2019 7:38 AM CDT us Donovan Oleary [place] POCT ORDERABLES - DEVICE Final Result [facility] ORDERS INTERFACE US * (ABNORMAL) COMPREHENSIVE METABOLIC PANEL (07/18/2019 5:05 AM CDT) GLUCOSE 183(H) 70 - 99 MG/DL 07/18/2019 5:58 AM CDT [facility] BUN 16 7 - 18 MG/DL 07/18/2019 5:58 AM CDT [facility] CREATININE S/P/B 0.96 0.55 - 1.02 MG/DL 07/18/2019 5:58 AM CDT [facility] SODIUM S/P/B 139 136 - 145 MMOL/L 07/18/2019 5:58 AM CDT [facility] POTASSIUM S/P/B 4.0 3.5 - 5.1 MMOL/L 07/18/2019 5:58 AM CDT [facility] CHLORIDE S/P/B 102 100 - 108 MMOL/L 07/18/2019 5:58 AM CDT [facility] CO2 32.7(H) 21 - 32 MMOL/L 07/18/2019 5:58 AM CDT [facility] CALCIUM S/P/B 8.1(L) 8.5 - 10.1 MG/DL 07/18/2019 5:58 AM CDT [facility] BILIRUBIN TOTAL S/P/B 0.4 0.2 - 1.2 MG/DL 07/18/2019 5:58 AM CDT [facility] Comment: THIS ASSAY IS NOT RECOMMENDED FOR PATIENTS UNDERGOING TREATMENT WITH ELTROMBOPAG DUE TO THE POTENTIAL FOR FALSELY ELEVATED RESULTS. TOTAL PROTEIN S/P/B 6.4 6.4 - 8.2 G/DL 07/18/2019 5:58 AM [facility] ALBUMIN S/P/B 1.9(L) 3.4 - 5.0 G/DL 07/18/2019 5:58 AM [facility] AST 38(H) 15 - 37 U/L 07/18/2019 5:58 AM [facility] ALT 30 14 - 55 U/L 07/18/2019 5:58 AM [facility] ALKALINE PHOSPHATASE S/P/B 36(L) 50 - 136 U/L 07/18/2019 5:58 AM [facility] ANION GAP 4.3(L) 5 - 15 MMOL/L 07/18/2019 5:58 AM [facility] BUN CREATININE RATIO 16.7 6 - 26 07/18/2019 5:58 AM [facility] A/G RATIO 0.4(L) 1.0 - 2.0 RATIO 07/18/2019 5:58 AM [facility] EGFR NON-AFR. AMER. 62(L) >90 ML/MIN/1.7 3 M2 07/18/2019 5:58 AM [facility] EGFR AFR. AMER. 72(L) >90 ML/MIN/1.7 3 M2 07/18/2019 5:58 AM [facility] Comment: NOTE: eGFR is not calculated for patients <18 years of age. This is an estimated GFR (CKD EPI) and should not be used for calculating drug doses. 07/18/2019 5:05 AM CDT Christopher Engele AUDIOLOGY TECHNICIAN LABORATORY Final Re sult [facility] [address] [place] [address], * (ABNORMAL) CBC W/DIFF AUTOMATED (07/18/2019 5:05 AM CDT) WBC 5.6 4.8 - 10.8 x10'3/uL 07/18/2019 5:41 AM CDT [facility] RBC 3.12(L) 4.10 - 5.10 x10'6/uL 07/18/2019 5:41 AM CDT [facility] HGB 9.4(L) 12.0 - 16.0 G/DL 07/18/2019 5:41 AM CDT [facility] HCT 29.3(L) 36 - 46 % 07/18/2019 5:41 AM CDT [facility] MCV 93.9 80 - 100 FL 07/18/2019 5:41 AM CDT [facility] MCH 30.1 26.0 - 34.0 PG 07/18/2019 5:41 AM CDT [facility] MCHC 32.1 31.0 - 37.0 G/DL 07/18/2019 5:41 AM CDT [facility] RDW 16.4(H) 11.5 - 14.5 % 07/18/2019 5:41 AM CDT [facility] PLT 288 150 - 350 x10'3/uL 07/18/2019 5:41 AM CDT [facility] CBC COMMENT AUTOMATED RBC MORPHOLOGY AND PLATELET EVALUATION NORMAL 07/18/2019 5:41 AM CDT [facility] NEUTROPHILS % 60.9 50 - 70 % 07/18/2019 5:41 AM CDT [facility] LYMPHOCYTES % 23.2 18 - 42 % 07/18/2019 5:41 AM CDT [facility] MONOCYTES % 7.6 2.0 - 11.0 % 07/18/2019 5:41 AM CDT [facility] EOSINOPHILS 7.2(H) 1.0 - 3.0 % 07/18/2019 5:41 AM CDT [facility] BASOPHILS 1.1(H) 0.0 - 1.0 % 07/18/2019 5:41 AM CDT [facility] ABS. NEUTROPHILS TOTAL 3.39 1.69 - 7.81 x10'3/uL 07/18/2019 5:41 AM CDT [facility] 07/18/2019 5:05 AM CDT Donovan Oleary APRN LABORATORY Final Re sult Performing Organization Address City/[facility]/ZIP Co de Phone Number [facility] [address] [place] [address], * MAGNESIUM (07/18/2019 5:05 AM CDT) MAGNESIUM 2.0 1.8 - 2.4 MG/DL 07/18/2019 5:58 AM CDT [facility] 07/18/2019 5:05 AM CDT Marlon Kenny MD LABORATORY Final Result [facility] [address] [place] [address], * (ABNORMAL) CK (CPK) (07/18/2019 5:05 AM CDT) CPK 302(H) 26 - 192 U/L 07/18/2019 5:58 AM CDT [facility] 07/18/2019 5:05 AM CDT Marlon Kenny MD LABORATORY Final Result [facility] [address] [place] [address], [place] [phone] * (ABNORMAL) POCT glucose (07/17/2019 7:50 PM CDT) GLUCOSE POC 166(H) 70 - 99 MG/DL 07/17/2019 8:01 PM CDT [facility] ORDERS INTERFACE 07/17/2019 7:50 PM CDT Donovan Oleary AUDIOLOGY TECHNICIAN POCT ORDERABLES - DEVICE Final Result Performing Organization Address [facility] Co de Phone Number [facility] ORDERS INTERFACE US * (ABNORMAL) POCT glucose (07/17/2019 5:33 PM CDT) GLUCOSE POC 141(H) 70 - 99 MG/DL 07/17/2019 5:34 PM CDT [facility] ORDERS INTERFACE 07/17/2019 5:33 PM CDT Donovan Oleary APRN POCT ORDERABLES - DEVICE Final Result Performing Organization Address City/[facility]/ZIP Co de Phone Number [facility] ORDERS INTERFACE US * (ABNORMAL) POCT glucose (07/17/2019 2:19 PM CDT) GLUCOSE POC 101(H) 70 - 99 MG/DL 07/17/2019 2:22 PM CDT [facility] ORDERS INTERFACE 07/17/2019 2:19 PM CDT Deyviopher Nina AUDIOLOGY TECHNICIAN POCT ORDERABLES - DEVICE Final Result Performing Organization Address City/[facility]/ZIP Co de Phone Number [facility] ORDERS INTERFACE US * (ABNORMAL) POCT glucose (07/17/2019 1:11 PM CDT) GLUCOSE POC 69(L) 70 - 99 MG/DL 07/17/2019 1:12 PM CDT [facility] ORDERS INTERFACE 07/17/2019 1:11 PM CDT us Donovan Oleary [place] POCT ORDERABLES - DEVICE Final Result [facility] ORDERS INTERFACE US * (ABNORMAL) CULTURE, ANAEROBIC (07/17/2019 11:00 AM CDT) SPEC DESCRIPTION BUTTOCK,LEFT 07/17/2019 5:18 PM CDT [facility] SPECIAL REQUESTS NO SPECIAL REQUEST 07/17/2019 5:18 PM CDT [facility] GRAM STAIN RESULT MANY WHITE BLOOD CELLS SEEN 07/18/2019 12:15 PM CDT [facility] GRAM STAIN RESULT MANY RED BLOOD CELLS SEEN 07/18/2019 12:15 PM CDT [facility] GRAM STAIN RESULT MANY GRAM NEGATIVE RODS 07/18/2019 12:15 PM CDT [facility] GRAM STAIN RESULT FEW GRAM POSITIVE COCCI 07/18/2019 12:15 PM CDT [facility] CULTURE RESULT HEAVY GROWTH OF ESCHERICHIA COLI SUSCEPTIBILITY ON PREVIOUS SPECIMEN [id number] (A) 07/22/2019 9:52 AM CDT [facility] CULTURE RESULT LIGHT GROWTH OF VANCOMYCIN RESISTANT ENTEROCOCCUS FAECALIS SUSCEPTIBILITY ON PREVIOUS SPECIMEN [id number] (A) 07/22/2019 9:52 AM CDT [facility] CULTURE RESULT LIGHT GROWTH OF BACTEROIDES THETAIOTAOMICRON BETA LACTAMASE POSITIVE SUSCEPTIBILTY NOT ROUTINELY PERFORMED. SAVING ISOLATE FOR 5 DAYS. CONTACT MICROBIOLOGY DEPARTMENT IF FURTHER WORKUP IS INDICATED. (A) 07/22/2019 9:52 AM CDT [facility] CULTURE RESULT NOTE: ANAEROBIC CULTURES ARE ROUTINELY SCREENED FOR BOTH AEROBIC AND ANAEROBIC ORGANISMS. 07/22/2019 9:52 AM CDT [facility] STRUCTURE OF LEFT BUTTOCK / Unknown 07/17/2019 11:00 AM CDT 07/17/2019 6:58 PM CDT oDnovan Oleary APRN MICROBIOLOGY - GENERAL O RDERABLES Final Result [facility] [address] [place] [address], [place] [phone] [facility] [address] [place] [address], [place] [phone] * (ABNORMAL) CULTURE, ANAEROBIC (07/17/2019 11:00 AM CDT) SPEC DESCRIPTION BUTTOCK,LEFT 07/17/2019 5:18 PM CDT [facility] SPECIAL REQUESTS NO SPECIAL REQUEST 07/17/2019 5:18 PM CDT [facility] GRAM STAIN RESULT RARE WHITE BLOOD CELLS SEEN 07/18/2019 12:09 PM CDT [facility] GRAM STAIN RESULT RARE RED BLOOD CELLS SEEN 07/18/2019 12:09 PM CDT [facility] GRAM STAIN RESULT MANY GRAM NEGATIVE RODS 07/18/2019 12:09 PM CDT [facility] GRAM STAIN RESULT RARE GRAM POSITIVE COCCI 07/18/2019 12:09 PM CDT [facility] CULTURE RESULT HEAVY GROWTH OF ESCHERICHIA COLI (A) 07/22/2019 9:51 AM CDT [facility] CULTURE RESULT LIGHT GROWTH OF VANCOMYCIN RESISTANT ENTEROCOCCUS FAECALIS (A) 07/22/2019 9:51 AM CDT [facility] CULTURE RESULT MODERATE GROWTH OF BACTEROIDES THETAIOTAOMICRON BETA LACTAMASE POSITIVE SUSCEPTIBILTY NOT ROUTINELY PERFORMED. SAVING ISOLATE FOR 5 DAYS. CONTACT MICROBIOLOGY DEPARTMENT IF FURTHER WORKUP IS INDICATED. (A) 07/22/2019 9:51 AM CDT [facility] CULTURE RESULT NOTE: ANAEROBIC CULTURES ARE ROUTINELY SCREENED FOR BOTH AEROBIC AND ANAEROBIC ORGANISMS. 07/22/2019 9:51 AM CDT [facility] STRUCTURE OF LEFT BUTTOCK / [...] Resistant Vancomycin resistant enteroc occus faecalis LINEZOLID IMCHAEL (MICI) 1: Sensitive Vancomycin resistant enteroc occus faecalis PENICILLIN G MICHAEL (MICI) 8: Sensitive Vancomycin resistant enteroc occus faecalis VANCOMYCIN MICHAEL (MICI) >=32: Resistant Donovan Oleary APRN MICROBIOLOGY - GENERAL O RDERABLES Final Result [facility] [address] [place] [address], [place] [phone] [facility] [address] [place] [address], [place] [phone] * POCT glucose (07/17/2019 7:17 AM CDT) [facility] Signature GLUCOSE POC 73 70 - 99 MG/DL 07/17/2019 7:24 AM CDT [facility] ORDERS INTERFACE 07/17/2019 7:17 AM CDT us Donovan Oleary APRN POCT ORDERABLES - DEVICE Final Result [facility] ORDERS INTERFACE US * MAGNESIUM (07/17/2019 4:00 AM CDT) MAGNESIUM 2.2 1.8 - 2.4 MG/DL 07/17/2019 8:12 AM CDT [facility] 07/17/2019 4:00 AM CDT us Marlon Kneny MD LABORATORY Final Result Performing Organization Address City/[facility]/ZIP Co de Phone Number [facility] [address] [place] [address], [place] [phone] * TYPE & SCREEN (07/17/2019 4:00 AM CDT) UNITS ORDERED 1 07/17/2019 6:11 AM CDT [facility] ABO/RH O POSITIVE 07/17/2019 6:11 AM CDT [facility] ANTIBODY SCREEN NEGATIVE 0 6:11 AM CDT [facility] SAMPLE EXPIRATION 07/20/2019,2359 07/17/2019 6:11 AM CDT [facility] BLOOD UNIT NUMBER [id number] 07/17/2019 8:19 AM CDT [facility] PRODUCT: PC LEUKOPOOR 07/17/2019 8:19 AM CDT [facility] UNIT DIVISION 00 07/17/2019 8:19 AM CDT [facility] BLOOD UNIT STATUS TRANSFUSED,FINAL 07/18/2019 4:19 PM CDT [facility] ISSUE DATE/TIME [id number] 020 4:19 PM CDT [facility] PRODUCT CODE [id number] 07/18/2019 4:19 PM CDT [facility] ABO/RH Unit O POS 07/18/2019 4:19 PM CDT [facility] ABO/RH UNIT ISBT CODE 5100 07/18/2019 4:19 PM CDT [facility] BLOOD UNIT EXPIRATION DATE [id number] 07/18/2019 4:19 PM CDT [facility] TRANSFUSION STATUS OK TO TRANSFUSE 07/17/2019 8:19 AM CDT [facility] CROSSMATCH COMPATIBLE 07/17/2019 8:19 AM CDT [facility] 07/17/2019 4:00 AM CDT Marlon Kenny MD BLOOD BANK TEST ORDERABLES Final Result [facility] [address] [place] [address], [place] [phone] * (ABNORMAL) CBC W/DIFF AUTOMATED (07/17/2019 4:00 AM CDT) WBC 4.9 4.8 - 10.8 x10'3/uL 07/17/2019 4:46 AM CDT [facility] RBC 2.66(L) 4.10 - 5.10 x10'6/uL 07/17/2019 4:46 AM CDT [facility] HGB 7.7(L) 12.0 - 16.0 G/DL 07/17/2019 4:46 AM CDT [facility] HCT 24.7(L) 36 - 46 % 07/17/2019 4:46 AM CDT [facility] MCV 92.9 80 - 100 FL 07/17/2019 4:46 AM CDT [facility] MCH 28.9 26.0 - 34.0 PG 07/17/2019 4:46 AM CDT [facility] MCHC 31.2 31.0 - 37.0 G/DL 07/17/2019 4:46 AM CDT [facility] RDW 16.8(H) 11.5 - 14.5 % 07/17/2019 4:46 AM CDT [facility] PLT 309 150 - 350 x10'3/uL 07/17/2019 4:46 AM CDT [facility] CBC COMMENT AUTOMATED RBC MORPHOLOGY AND PLATELET EVALUATION NORMAL 07/17/2019 4:46 AM CDT [facility] NEUTROPHILS % 56.8 50 - 70 % 07/17/2019 4:46 AM CDT [facility] LYMPHOCYTES % 26.8 18 - 42 % 07/17/2019 4:46 AM CDT [facility] MONOCYTES % 8.4 2.0 - 11.0 % 07/17/2019 4:46 AM CDT [facility] EOSINOPHILS 7.0(H) 1.0 - 3.0 % 07/17/2019 4:46 AM CDT [facility] BASOPHILS 1.0 0.0 - 1.0 % 07/17/2019 4:46 AM CDT [facility] ABS. NEUTROPHILS TOTAL 2.78 1.69 - 7.81 x10'3/uL 07/17/2019 4:46 AM T [facility] 07/17/2019 4:00 AM CDT Marlon Kenny MD LABORATORY Final Result [facility] [address] [place] [address], [place] [phone] * (ABNORMAL) BASIC METABOLIC PANEL (07/17/2019 4:00 AM CDT) [facility] Signature GLUCOSE 103(H) 70 - 99 MG/DL 07/17/2019 8:12 AM T [facility] BUN 14 7 - 18 MG/DL 07/17/2019 8:12 AM T [facility] CREATININE S/P/B 0.88 0.55 - 1.02 MG/DL 07/17/2019 8:12 AM T [facility] SODIUM S/P/B 141 136 - 145 MMOL/L 07/17/2019 8:12 AM T [facility] POTASSIUM S/P/B 4.0 3.5 - 5.1 MMOL/L 07/17/2019 8:12 AM [facility] CHLORIDE S/P/B 103 100 - 108 MMOL/L 07/17/2019 8:12 AM [facility] CO2 31.7 21 - 32 MMOL/L 07/17/2019 8:12 AM [facility] CALCIUM S/P/B 8.2(L) 8.5 - 10.1 MG/DL 07/17/2019 8:12 AM [facility] ANION GAP 6.3 5 - 15 MMOL/L 07/17/2019 8:12 AM T [facility] BUN CREATININE RATIO 15.9 6 - 26 07/17/2019 8:12 AM [facility] EGFR NON-AFR. AMER. 69(L) >90 ML/MIN/1.7 3 M2 07/17/2019 8:12 AM T [facility] EGFR AFR. AMER. 80(L) >90 ML/MIN/1.7 3 M2 07/17/2019 8:12 AM T [facility] Comment: NOTE: eGFR is not calculated for patients <18 years of age. This is an estimated GFR (CKD EPI) and should not be used for calculating drug doses. 07/17/2019 4:00 AM CDT Marlon Kenny MD LABORATORY Final Result [facility] [address] [place] [address], [place] [phone] * (ABNORMAL) POCT glucose (07/16/2019 8:13 PM CDT) 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
--- OUTSIDE RECORDS SUMMARY | 2024-02-27 03:25 | XMS_ITS | Encounter Summary ---
Author Organization [facility] Address [address] [place] [address]. [place] [address] [place] [address] Care Team Providers Care Instructional Design Consultant Name Role Phone Damon Swanson MD Unavailable [phone] Don Branham MD Primary Care Provider [phone] Reason for Referral * Imaging (Urgent) - Closed Specialty Diagnoses / Procedures Referred By Leif hilton Referred To Contact RADIOLOGY Procedures CT ABD+PEL W CON CT ABD+PEL W CON [place] [address] Phone: tel: [phone] fax: Referral ID Status Reason Start Date Expiration Date Visits Re quested Visits Authorized [id number] Closed 07/13/2019 08/12/2020 1 1 Reason for Visit * Auth/Cert Specialty Diagnoses / Procedures Referred By Leif hilton Referred To Contact Diagnoses Swing bed Encephalopathy Procedures SWING BED Referral ID Status Reason Start Date Expiration Date Visits Re quested Visits Authorized [id number] 1 1 Encounter Details Date Type Department Care Team (Late st Contact Info) Description 07/09/2019 6:25 PM CDT - 07/16/2019 5:09 PM CDT Hospital Encounter [facility] [address] [place] [address] Fer Garrido MD [facility] [place], [place] [id number] [phone] (Work) Ben Wood APRN [address] [place] [address] [phone] (Work) Shmuel [place] [address] [phone] (Work) Discharge Disposition: Transfer to Acute [...] Summary Patient ID: Iris Pascual. female. [id number]. [id number] Admit date: 07/09/2019 6:25 PM Discharge date: [...] No results for input(s): PH, PCO2, PO2, [id number], BICARBWB, BASEDEFICIT, BASEEXCESS in the [id number] hours. No results found for this or [...] Recommendation PT Recommendation PT during Hospitalization;[facility] at [facility];Swing Bed Unit Plan PT Treatments/Interventions Gait [...] required, then patient can be discharged to correction facility for ongoingwound management as an outpatient [...] Recommendation PT Recommendation PT during Hospitalization;PT at [facility];Swing Bed Unit Plan PT Treatments/Interventions Gait [...] Castellanos LCSW - 07/16/2019 10:29 AM CDT runner worker contacted [facility] with [facility] in [place] to inform that patient would not be ready for discharge until July 17. [facility] will provide transport . runner worker to contact [facility] tomorrow and provide update and to confirm plan is for discharge. [facility] phone number is [phone] Fax number is [phone] . runner worker has been speaking with [employer] plant operations coordinator, phone number is [phone] . runner worker will continue to follow. * Rosana [...] No results for input(s): PH, PCO2, PO2, [id number], BICARBWB, BASEDEFICIT, BASEEXCESS in the [id number] hours. IMAGING: Ct Cerv Spine Wo Con [...] STAR Report Pat.Name: IRIS PASCUAL Nathan Ribeiro.ID: [id number] St.Date: 07/04/2019 Exam Time: 12:56:00 PM Study [...] 06/30/2019 Echocardiography Report Pat.Name: IRIS PASCUAL Gema.ID: [id number] St.Date: 06/30/2019 Exam Time: 12:31:00 PM Study [...] 31.9 mm Right Ventricle 24.4 mm Major Trufant 82.7 mm MMODE TA Tricuspid Annul 12.6 [...] continue treatment as above. [facility]ound care [...] 32.62 kg/m??. BMI Assessment: Grade 1 Obesity [place] Body Weight: 110 pounds Percent [place] Body Weight: 162% Usual Body Weight: 195 [...] ABX. Chewing/swallowing problems: No Food allergies/intolerances: none Cultural/Baptist food preferences: none Current diet appropriate? Yes Current intake sufficient to meet nutritional needs? Unsure; however patient is consuming 100% of meals. Pain affecting PO intake? No Estimated Nutrient Needs: Calories: 2048-8034 kcal/day, based on 20 kcal/kg Protein: 91 [...] No results for input(s): PH, PCO2, PO2, [id number], BICARBWB, BASEDEFICIT, BASEEXCESS in the [id number] hours. IMAGING: Ct Cerv Spine Wo Con [...] STAR Report Pat.Name: IRIS PASCUAL Nathan Ribeiro.ID: [id number] St.Date: 07/04/2019 Exam Time: 12:56:00 PM Study [...] 06/30/2019 Echocardiography Report Pat.Name: IRIS PASCUAL Gema.ID: [id number] St.Date: 06/30/2019 Exam Time: 12:31:00 PM Study [...] 31.9 mm Right Ventricle 24.4 mm Major Trufant 82.7 mm MMODE TA Tricuspid Annul 12.6 [...] continue treatment as above. [facility] July 2-patient [...] Outcome: Progressing Note: Plan to discharge to correction facility this coming week after completion of [...] No results for input(s): PH, PCO2, PO2, [id number], BICARBWB, BASEDEFICIT, BASEEXCESS in the [id number] hours. IMAGING: Ct Cerv Spine Wo Con [...] 07/04/2019 STAR Report Pat.Name: IRIS PASCUAL Gema.ID: [id number] .Date: 07/04/2019 Exam Time: 12:56:00 PM Study [...] 06/30/2019 Echocardiography Report Pat.Name: IRIS PASCUAL Gema.ID: [id number] St.Date: 06/30/2019 Exam Time: 12:31:00 PM Study [...] size is normal. IAS: Atrialseptum appears intact. NAGELA: Trivial pericardial effusion, without tamponade physiology. AO: [...] Ventricle 31.9 mm RightVentricle 24.4 mm Major Trufant 82.7 mm MMODE TA Tricuspid Annul 12.6 [...] Lantus daily, add meal time insulin ?? ABDIARSHID on CKD 3: resolved Patient presented with [...] Performed a few exercises in chair. Modified [place] Score Score 0-6 2 Slight disability, unable [...] Deficit Setup;Fasteners UE Dressing Comment to don/dof [facility] LE Dressing Assistance Total;In bed LE Dressing [...] Castellanos LCSW - 07/12/2019 11:20 AM CDT runner worker met with patient to offer 1:1 psychosocial support. Patient is pleasant and participates in visit. Patient does not offer much in conversation, states she is okay and needs are met. Patient continues to receive IV antibiotic and PT and OT services. Discharge plan is to transfer to [facility] in [place] on Monday or Monday next week July 15 or . [facility] to provide transport. runner worker did speak with patient's daughter Celina who informs this is families first choice andpreference family cannot meet patient's needs at this time . runner worker will follow. * Natalie Faye PT [...] completed the steps without physical assist. Modified Coving[place] Score Score 0-6 2 Slight disability, unable [...] time to complete;Thread RUE UE Dressing Comment [facility] LE Dressing Assistance Total;Sitting in chair [...] Recommendation OT during Hospitalization;Swing Bed Unit (at [place] [facility] vs. home with family assistance ) [...] to chair. Pt fatigued after session. Modified [place] Score Score 0-6 2 Slight disability, unable [...] with LB ADLS Prior Function Level of [place] Independent with functional transfers;Independent with ambulation;Needs assistance [...] 07/12/2019 8:59 AM CDT * Irene Patel, SILVERSMITH APPRENTICE - 07/10/2019 4:28 PM CDT 07/10/19 1500 [...] to the grocery store and laundromat. Modified [place] Score Score 0-6 2 Slight disability, unable [...] Session Comment Patient in chair. * Genesis Csatellanos LCSW - 07/10/2019 2:07 PM CDT runner worker met with patient today , patient does participate in visit, patient is alert to self and place able to make needs known, short term memory deficit, history of schizophrenia , patient pleasant with care. Patient states she likes to watch television. Patient son and daughter are primary care givers. Patient admitted to [facility] SWING BED for IV antibiotic Daptomycin 1x daily. PT and OT, and wound care. Patient is able to make needs known. Length of stay 7 days? runner worker also spoke with patient's son Alisson who states he will speak with patient's daughter his sister to discuss discharge plan. Patient has been a resident at [facility] family may want patient to return there. Or patient may go to daughter's home or son's home. Patient is a diabetic as well. Patient requires 24 hour care for assistance with all ADL s , meal prep, etc... Patient is not ableto manage her own finances. runner worker will follow. * Chao Ricci, RD [...] 32.62 kg/m??. BMI Assessment: Grade 1 Obesity [place] Body Weight: Adj. Body weight 125# Percent Adj. Body Weight: 142% Percent Weight Loss: 9% Nutrition: Current Diet Order: Diet general Appropriate Diet Comment: Patient lives at home by herself. Patient appears to have 9% wt. Loss in past 30 days. Swing bed patient for 7 days ABX. Chewing/swallowing problem: NO Food allergies/intolerances: No Cultural/Baptist food preferences: No Current diet appropriate? Yes [...] 0 Steps to enter (0 steps at [facility], 4-5 steps at her home.) Bathroom Accessibility Accessible (Accessible at granddaughter's, don't have it at her home.) Home Equipment 4 Wheeled walker Additional Comments Looking to get a helper at home. Prior Function Level of [place] Independent with functional transfers;Independent with ambulation Device [...] improve safety and return to PLOF. Modified [place]oving[place] Score Score 0-6 2 Slight disability, unable [...] file Gets together: Not on file Attends baptist service: Not on file Active member of [...] No results for input(s): PH, PCO2, PO2, [id number], BICARBWB, BASEDEFICIT, BASEEXCESS in the [id number] hours. Imaging & Other Studies No results [...] 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, estrogen receptor negative ([facility]) 11/13/2017 Assessment & Plan: 64Yy F [...] file Gets together: Not on file Attends baptist service: Not on file Active member of [...] 7:36 AM CDT Spoke with Preeti at [facility] wound clinic. Preeti stated that she [...] from wound clinic today. Sue Turner RN Chemistry Tutor informed. * Jodi Asif RN - 07/15/2019 2:00 PM CDT Pt swing pt receiving IV antibiotics. Fluconazole IV added to regimin today. * Jodi Asif RN - 07/15/2019 12:47 PM CDT Pts daughter called and message left for her to call her mother as requested * Jodi Asif RN - 07/15/2019 11:30 AM CDT No reponse from wound clinic. Chemistry Tutor Sue Turner RN notified and will try calling as well. * Genesis Turner RN - 07/15/2019 11:00 AM CDT Called over to wound clinic in [place] and left a voice mail to return a phone call about a consult. Was not sure if wound clinic was open so called to [facility] and asked to speak with natural gas plant supervisor and spoke with Audrey and she said she knew they were there today and was busy so they would call back. Audrey is unsure if they can do inpatient consults but said to leave a voice mail which was done twice. * Jdoi Asif RN - 07/15/2019 9:50 AM CDT Call to [facility] wound clinic for referal on wound [...] belt and walker. Plans to discharge to correction facility after completion of IV antibiotics. * [...] DEVICE Final R esult Performing Organization Address [facility] Co de Phone Number [facility] ORDERS INTERFACE US * (ABNORMAL) POCT glucose (07/16/2019 11:11 AM CDT) GLUCOSE POC 198(H) 70 - 99 MG/DL 07/16/2019 11:13 AM CDT [facility] ORDERS INTERFACE 07/16/2019 11:1 1 AM CDT Shmuel Alvarez MD POCT ORDERABLES - DEVICE Final R esult Performing Organization Address [facility] de Phone Number [facility] ORDERS INTERFACE US * (ABNORMAL) POCT glucose (07/16/2019 7:50 AM CDT) GLUCOSE POC 142(H) 70 - 99 MG/DL 07/16/2019 8:00 AM CDT [facility] ORDERS INTERFACE 07/16/2019 7:50 AM CDT Shmuel Alvarez MD POCT ORDERABLES - DEVICE Final R esult Performing Organization Address [facility]/State/[facility] Co de Phone Number [facility] ORDERS INTERFACE US * MAGNESIUM (07/16/2019 3:20 AM CDT) MAGNESIUM 2.0 1.8 - 2.4 MG/DL 07/16/2019 3:57 AM CDT [facility] 07/16/2019 3:20 AM CDT Shmuel Alvarez MD LABORATORY Final Result [facility] [address] [address], [place] [phone] * (ABNORMAL) CBC W/DIFF AUTOMATED (07/16/2019 3:20 AM CDT) WBC 5.9 4.8 - 10.8 x10'3/uL 07/16/2019 3:32 AM CDT [facility] RBC 2.58(L) 4.10 - 5.10 x10'6/uL 07/16/2019 3:32 AM CDT [facility] HGB 7.3(L) 12.0 - 16.0 G/DL 07/16/2019 3:32 AM CDT [facility] HCT 23.6(L) 36 - 46 % 07/16/2019 3:32 AM CDT [facility] MCV 91.5 80 - 100 FL 07/16/2019 3:32 AM CDT [facility] MCH 28.3 26.0 - 34.0 PG 07/16/2019 3:32 AM CDT [facility] MCHC 30.9(L) 31.0 - 37.0 G/DL 07/16/2019 3:32 AM CDT [facility] RDW 16.4(H) 11.5 - 14.5 % 07/16/2019 3:32 AM CDT [facility] PLT 294 150 - 350 x10'3/uL 07/16/2019 3:32 AM CDT [facility] CBC COMMENT AUTOMATED RBC MORPHOLOGY AND PLATELET EVALUATION NORMAL 07/16/2019 3:32 AM CDT [facility] NEUTROPHILS % 61.3 50 - 70 % 07/16/2019 3:32 AM CDT [facility] LYMPHOCYTES % 22.6 18 - 42 % 07/16/2019 3:32 AM CDT [facility] MONOCYTES % 8.0 2.0 - 11.0 % 07/16/2019 3:32 AM CDT [facility] EOSINOPHILS 7.2(H) 1.0 - 3.0 % 07/16/2019 3:32 AM CDT [facility] BASOPHILS 0.9 0.0 - 1.0 % 07/16/2019 3:32 AM CDT [facility] ABS. NEUTROPHILS TOTAL 3.59 1.69 - 7.81 x10'3/uL 07/16/2019 3:32 AM CDT [facility] 07/16/2019 3:20 AM CDT us Shmuel Alvarez MD LABORATORY Final Result [facility] [address] [address], [place] [phone] * (ABNORMAL) BASIC METABOLIC PANEL (07/16/2019 3:20 AM CDT) [facility] GLUCOSE 106(H) 70 - 99 MG/DL 07/16/2019 3:57 AM CDT [facility] BUN 15 7 - 18 MG/DL 07/16/2019 3:57 AM CDT [facility] CREATININE S/P/B 0.83 0.55 - 1.02 MG/DL 07/16/2019 3:57 AM CDT [facility] SODIUM S/P/B 138 136 - 145 MMOL/L 07/16/2019 3:57 AM CDT [facility] POTASSIUM S/P/B 3.8 3.5 - 5.1 MMOL/L 07/16/2019 3:57 AM CDT [facility] CHLORIDE S/P/B 102 100 - 108 MMOL/L 07/16/2019 3:57 AM CDT [facility] CO2 30.3 21 - 32 MMOL/L 07/16/2019 3:57 AM CDT [facility] CALCIUM S/P/B 7.6(L) 8.5 - 10.1 MG/DL 07/16/2019 3:57 AM CDT [facility] ANION GAP 5.7 5 - 15 MMOL/L 07/16/2019 3:57 AM CDT [facility] BUN CREATININE RATIO 18.1 6 - 26 07/16/2019 3:57 AM T [facility] EGFR NON-AFR. AMER. 75(L) >90 ML/MIN/1.7 3 M2 07/16/2019 3:57 AM CDT [facility] EGFR AFR. AMER. 86(L) >90 ML/MIN/1.7 3 M2 07/16/2019 3:57 AM T [facility] Comment: NOTE: eGFR is not calculated for patients <18 years of age. This is an estimated GFR (CKD EPI) and should not be used for calculating drug doses. 07/16/2019 3:20 AM CDT us Shmuel Alvarez MD LABORATORY Final Result [facility] [address] [place] [address], [place] [phone] * (ABNORMAL) POCT glucose (07/15/2019 8:30 PM CDT) [facility] Signature GLUCOSE POC 335(H) 70 - 99 MG/DL 07/15/2019 8:37 PM CDT [facility] ORDERS INTERFACE 07/15/2019 8:30 PM CDT Shmuel Alvarez MD POCT ORDERABLES - DEVICE Final R esult Performing Organization Address [facility] Phone Number [facility] ORDERS INTERFACE US * (ABNORMAL) POCT glucose (07/15/2019 3:29 PM CDT) GLUCOSE POC 183(H) 70 - 99 MG/DL 07/15/2019 3:49 PM CDT [facility] ORDERS INTERFACE 07/15/2019 3:29 PM CDT Shmuel Alvarez MD POCT ORDERABLES - DEVICE Final R esult Performing Organization Address [facility] Phone Number [facility] ORDERS INTERFACE US * (ABNORMAL) POCT glucose (07/15/2019 11:22 AM CDT) GLUCOSE POC 139(H) 70 - 99 MG/DL 07/15/2019 1:01 PM CDT [facility] ORDERS INTERFACE 07/15/2019 11:2 2 AM CDT Shmuel Alvarez MD POCT ORDERABLES - DEVICE Final R esult Performing Organization Address [facility] Phone Number [facility] ORDERS INTERFACE US * (ABNORMAL) POCT glucose (07/15/2019 7:29 AM CDT) GLUCOSE POC 173(H) 70 - 99 MG/DL 07/15/2019 8:01 AM CDT [facility] ORDERS INTERFACE 07/15/2019 7:29 AM CDT Shmuel Alvarez MD POCT ORDERABLES - DEVICE Final R esult Performing Organization Address [facility] Phone Number [facility] ORDERS INTERFACE US * MAGNESIUM (07/15/2019 5:55 AM CDT) MAGNESIUM 2.2 1.8 - 2.4 MG/DL 07/15/2019 6:49 AM CDT [facility] 07/15/2019 5:55 AM CDT Shmuel Alvarez MD LABORATORY Final Result [facility] [address] [place] [address], [place] [phone] * (ABNORMAL) CBC W/DIFF AUTOMATED (07/15/2019 5:55 AM CDT) WBC 6.0 4.8 - 10.8 x10'3/uL 07/15/2019 6:39 AM CDT [facility] RBC 2.71(L) 4.10 - 5.10 x10'6/uL 07/15/2019 6:39 AM CDT [facility] HGB 7.7(L) 12.0 - 16.0 G/DL 07/15/2019 6:39 AM T [facility] HCT 25.1(L) 36 - 46 % 07/15/2019 6:39 AM T [facility] MCV 92.6 80 - 100 FL 07/15/2019 6:39 AM CDT [facility] MCH 28.4 26.0 - 34.0 PG 07/15/2019 6:39 AM T [facility] MCHC 30.7(L) 31.0 - 37.0 G/DL 07/15/2019 6:39 AM CDT [facility] RDW 16.6(H) 11.5 - 14.5 % 07/15/2019 6:39 AM CDT [facility] PLT 330 150 - 350 x10'3/uL 07/15/2019 6:39 AM CDT [facility] CBC COMMENT AUTOMATED RBC MORPHOLOGY AND PLATELET EVALUATION NORMAL 07/15/2019 6:39 AM CDT [facility] NEUTROPHILS % 66.6 50 - 70 % 07/15/2019 6:39 AM CDT [facility] LYMPHOCYTES % 19.7 18 - 42 % 07/15/2019 6:39 AM CDT [facility] MONOCYTES % 6.8 2.0 - 11.0 % 07/15/2019 6:39 AM CDT [facility] EOSINOPHILS 6.2(H) 1.0 - 3.0 % 07/15/2019 6:39 AM CDT [facility] BASOPHILS 0.7 0.0 - 1.0 % 07/15/2019 6:39 AM CDT [facility] ABS. NEUTROPHILS TOTAL 3.99 1.69 - 7.81 x10'3/uL 07/15/2019 6:39 AM T [facility] 07/15/2019 5:55 AM CDT Shmuel Alvarez MD LABORATORY Final Result [facility] [address] [place] [address], [place] [phone] * (ABNORMAL) BASIC METABOLIC PANEL (07/15/2019 5:55 AM CDT) [facility] Signature GLUCOSE 153(H) 70 - 99 MG/DL 07/15/2019 6:49 AM CDT [facility] BUN 18 7 - 18 MG/DL 07/15/2019 6:49 AM CDT [facility] CREATININE S/P/B 0.94 0.55 - 1.02 MG/DL 07/15/2019 6:49 AM CDT [facility] SODIUM S/P/B 140 136 - 145 MMOL/L 07/15/2019 6:49 AM CDT [facility] POTASSIUM S/P/B 3.5 3.5 - 5.1 MMOL/L 07/15/2019 6:49 AM T [facility] CHLORIDE S/P/B 103 100 - 108 MMOL/L 07/15/2019 6:49 AM CDT [facility] CO2 31.0 21 - 32 MMOL/L 07/15/2019 6:49 AM T [facility] CALCIUM S/P/B 8.1(L) 8.5 - 10.1 MG/DL 07/15/2019 6:49 AM T [facility] ANION GAP 6.0 5 - 15 MMOL/L 07/15/2019 6:49 AM T [facility] BUN CREATININE RATIO 19.1 6 - 26 07/15/2019 6:49 AM T [facility] EGFR NON-AFR. AMER. 64(L) >90 ML/MIN/1.7 3 M2 07/15/2019 6:49 AM T [facility] EGFR AFR. AMER. 74(L) >90 ML/MIN/1.7 3 M2 07/15/2019 6:49 AM T [facility] Comment: NOTE: eGFR is not calculated for patients <18 years of age. This is an estimated GFR (CKD EPI) and should not be used for calculating drug doses. 07/15/2019 5:55 AM CDT us Shmuel Alvarez MD LABORATORY Final Result [facility] [address] [place] [address], [place] [phone] * (ABNORMAL) POCT glucose (07/14/2019 8:42 PM CDT) [facility] Signature GLUCOSE POC 182(H) 70 - 99 MG/DL 07/14/2019 8:49 PM CDT [facility] ORDERS INTERFACE 07/14/2019 8:42 PM CDT Shmuel Alvarez MD POCT ORDERABLES - DEVICE Final R esult Performing Organization Address [facility] Co de Phone Number [facility] ORDERS INTERFACE US * (ABNORMAL) POCT glucose (07/14/2019 4:10 PM CDT) GLUCOSE POC 176(H) 70 - 99 MG/DL 07/15/2019 3:20 AM CDT [facility] ORDERS INTERFACE 07/14/2019 4:10 PM CDT Shmuel Alvarez MD POCT ORDERABLES - DEVICE Final R esult Performing Organization Address [facility] Co de Phone Number [facility] ORDERS INTERFACE US * (ABNORMAL) POCT glucose (07/14/2019 11:09 AM CDT) GLUCOSE POC 166(H) 70 - 99 MG/DL 07/14/2019 11:13 AM CDT [facility] ORDERS INTERFACE 07/14/2019 11:0 9 AM CDT Shmuel Alvarez MD POCT ORDERABLES - DEVICE Final R esult Performing Organization Address [facility] Co de Phone Number [facility] ORDERS INTERFACE US * (ABNORMAL) MAGNESIUM (07/14/2019 9:13 AM CDT) MAGNESIUM 1.7(L) 1.8 - 2.4 MG/DL 07/14/2019 10:12 AM CDT [facility] 07/14/2019 9:13 AM CDT Shmuel Alvarez MD LABORATORY Final Result Performing Organization Address City/[facility]/ZIP Co de Phone Number [facility] [address] [address], [place] [phone] * (ABNORMAL) CBC W/DIFF AUTOMATED (07/14/2019 9:13 AM CDT) WBC 6.9 4.8 - 10.8 x10'3/uL 07/14/2019 9:52 AM CDT [facility] RBC 2.70(L) 4.10 - 5.10 x10'6/uL 07/14/2019 9:52 AM CDT [facility] HGB 7.8(L) 12.0 - 16.0 G/DL 07/14/2019 9:52 AM T [facility] HCT 24.9(L) 36 - 46 % 07/14/2019 9:52 AM T [facility] MCV 92.2 80 - 100 FL 07/14/2019 9:52 AM CDT [facility] MCH 28.9 26.0 - 34.0 PG 07/14/2019 9:52 AM T [facility] MCHC 31.3 31.0 - 37.0 G/DL 07/14/2019 9:52 AM T [facility] RDW 16.7(H) 11.5 - 14.5 % 07/14/2019 9:52 AM T [facility] PLT 347 150 - 350 x10'3/uL 07/14/2019 9:52 AM T [facility] CBC COMMENT AUTOMATED RBC MORPHOLOGY AND PLATELET EVALUATION NORMAL 07/14/2019 9:52 AM T [facility] NEUTROPHILS % 70.8(H) 50 - 70 % 07/14/2019 9:52 AM T [facility] LYMPHOCYTES % 19.2 18 - 42 % 07/14/2019 9:52 AM T [facility] MONOCYTES % 5.4 2.0 - 11.0 % 07/14/2019 9:52 AM CDT [facility] EOSINOPHILS 4.2(H) 1.0 - 3.0 % 07/14/2019 9:52 AM CDT [facility] BASOPHILS 0.4 0.0 - 1.0 % 07/14/2019 9:52 AM CDT [facility] ABS. NEUTROPHILS TOTAL 4.85 1.69 - 7.81 x10'3/uL 07/14/2019 9:52 AM CDT [facility] 07/14/2019 9:13 AM CDT Shmuel Alvarez MD LABORATORY Final Result [facility] [address] [address], * (ABNORMAL) BASIC METABOLIC PANEL (07/14/2019 9:13 AM CDT) GLUCOSE 141(H) 70 - 99 MG/DL 07/14/2019 10:12 AM CDT [facility] BUN 23(H) 7 - 18 MG/DL 07/14/2019 10:12 AM CDT [facility] CREATININE S/P/B 1.05(H) 0.55 - 1.02 MG/DL 07/14/2019 10:12 AM CDT [facility] SODIUM S/P/B 139 136 - 145 MMOL/L 07/14/2019 10:12 AM CDT [facility] POTASSIUM S/P/B 3.5 3.5 - 5.1 MMOL/L 07/14/2019 10:12 AM CDT [facility] CHLORIDE S/P/B 101 100 - 108 MMOL/L 07/14/2019 10:12 AM CDT [facility] CO2 32.5(H) 21 - 32 MMOL/L 07/14/2019 10:12 AM CDT [facility] CALCIUM S/P/B 8.1(L) 8.5 - 10.1 MG/DL 07/14/2019 10:12 AM CDT [facility] ANION GAP 5.5 5 - 15 MMOL/L 07/14/2019 10:12 AM CDT [facility] BUN CREATININE RATIO 21.9 6 - 26 07/14/2019 10:12 AM T [facility] EGFR NON-AFR. AMER. 56(L) >90 ML/MIN/1.7 3 M2 07/14/2019 10:12 AM CDT [facility] EGFR AFR. AMER. 65(L) >90 ML/MIN/1.7 3 M2 07/14/2019 10:12 AM T [facility] Comment: NOTE: eGFR is not calculated for patients <18 years of age. This is an estimated GFR (CKD EPI) and should not be used for calculating drug doses. 07/14/2019 9:13 AM CDT us Shmuel Alvarez MD LABORATORY Final Result Performing Organization Address City/[facility]/ZIP Co de Phone Number [facility] [address] [address], [place] [phone] * (ABNORMAL) POCT glucose (07/14/2019 7:24 AM CDT) GLUCOSE POC 118(H) 70 - 99 MG/DL 07/14/2019 7:26 AM CDT [facility] ORDERS INTERFACE 07/14/2019 7:24 AM CDT us Shmuel Alvarez MD POCT ORDERABLES - DEVICE Final R esult [facility] ORDERS INTERFACE US * (ABNORMAL) POCT glucose (07/13/2019 9:45 PM CDT) GLUCOSE POC 217(H) 70 - 99 MG/DL 07/13/2019 9:47 PM CDT [facility] ORDERS INTERFACE 07/13/2019 9:45 PM CDT Result [facility] Shmuel Alvarez MD POCT ORDERABLES - DEVICE Final R esult Performing Organization Address [facility] de Phone Number [facility] ORDERS INTERFACE US * (ABNORMAL) POCT glucose (07/13/2019 8:19 PM CDT) GLUCOSE POC >500(HH) 70 - 99 MG/DL 07/13/2019 8:25 PM CDT [facility] ORDERS INTERFACE 07/13/2019 8:19 PM CDT Result [facility] Shmuel Alvarez MD POCT ORDERABLES - DEVICE Final [facility] Performing Organization Address [facility] Phone Number [facility] ORDERS INTERFACE US * (ABNORMAL) POCT glucose (07/13/2019 4:24 PM CDT) GLUCOSE POC 185(H) 70 - 99 MG/DL 07/13/2019 4:49 PM CDT [facility] ORDERS INTERFACE 07/13/2019 4:24 PM CDT Result [facility] Shmuel Alvarez MD POCT ORDERABLES - DEVICE Final R [facility] Performing Organization Address [facility] de Phone Number [facility] ORDERS INTERFACE US * CT ABD+PEL [...] Harlan Gallardo DO, 07/13/2019 1:09 PM Shmuel Alvarze MD CT Final Result * (ABNORMAL) POCT glucose (07/13/2019 11:09 AM CDT) GLUCOSE POC 157(H) 70 - 99 MG/DL 07/13/2019 12:34 PM CDT [facility] ORDERS INTERFACE 07/13/2019 11:0 9 AM CDT Shmuel Alvarez MD POCT ORDERABLES - DEVICE Final R esult Performing Organization Address City/[facility]/ZIP Co de Phone Number [facility] ORDERS INTERFACE US * (ABNORMAL) CULTURE URINE (07/13/2019 10:05 AM CDT) SPEC DESCRIPTION URINE CLEAN CATCH 07/13/2019 10:52 AM CDT [facility] SPECIAL REQUESTS NO SPECIAL REQUEST 07/13/2019 10:52 AM CDT [facility] CULTURE RESULT >100,000 COL/ML CRISELDA ALBICANS SUSCEPTIBILTY NOT ROUTINELY PERFORMED. SAVING ISOLATE FOR 5 DAYS. CONTACT MICROBIOLOGY DEPARTMENT IF FURTHER WORKUP IS INDICATED. (A) 07/15/2019 11:22 AM CDT [facility] URINE SPECIMEN OBTAINED BY CLEAN CATCH PROCEDURE / Unknown 07/13/2019 10:05 AM CDT 07/13/2019 10:51 AM CDT Shmuel Alvarez MD MICROBIOLOGY - GENERAL ORDERABLE S Final Result Performing Organization Address City/[facility]/ZIP Co de Phone Number [facility] [address] [place] [address], [place] [phone] [facility] [address] [place] [address], [place] [phone] * (ABNORMAL) URINALYSIS WI REFLEX TO CULTURE (07/13/2019 10:05 AM CDT) COLOR (U) DARK YELLOW 07/13/2019 10:45 AM CDT [facility] TRANSPARENCY CLOUDY 07/13/2019 10:45 AM CDT [facility] SPECIFIC GRAVITY (U) 1.020 1.002 - 1.030 07/13/2019 10:45 AM T [facility] U PH 5.0 4.5 - 8.0 07/13/2019 10:45 AM T [facility] LEUKOCYTES (U) 3+(A) NEGATIVE 07/13/2019 10:45 AM T [facility] NITRITES POSITIVE(A) NEGATIVE 07/13/2019 10:45 AM T [facility] PROTEIN (U) 3+(A) NEGATIVE 07/13/2019 10:45 AM T [facility] URINE GLUCOSE NEGATIVE NEGATIVE 07/13/2019 10:45 AM T [facility] KETONES MG/DL (U) NEGATIVE NEGATIVE 07/13/2019 10:45 AM T [facility] UROBILINOGEN 1.0(A) NORMAL EU/DL 07/13/2019 10:45 AM T [facility] BILIRUBIN (U) NEGATIVE NEGATIVE 07/13/2019 10:45 AM T [facility] BLOOD (U) 5+(A) NEGATIVE 07/13/2019 10:45 AM T [facility] WBC/HPF 100-200 /HPF 07/13/2019 10:45 AM T [facility] CULTURE & SENSITIVITY INDICATED? SPECIMEN SETUP FOR CULTURE 07/13/2019 10:45 AM CDT [facility] RBC/HPF 5-10 /HPF 07/13/2019 10:45 AM CDT [facility] EPI/HPF 0-5 /HPF 07/13/2019 10:45 AM CDT [facility] BACTERIA (U) 2+ /HPF 07/13/2019 10:45 AM CDT [facility] MUCUS 1+ 07/13/2019 10:45 AM CDT [facility] BUDDING YEAST 3+ /HPF 07/13/2019 10:45 AM CDT [facility] URINE SPECIMEN OBTAINED VIA INDWELLING URINARY CATHETER / Unknown 07/13/2019 10:05 AM CDT Shmuel Alvarez MD URINE ORDERABLES Final Result Performing Organization Address City/[facility]/ZIP Co de Phone Number [facility] [address] [place] [address], [place] [phone] * (ABNORMAL) POCT glucose (07/13/2019 7:49 AM CDT) GLUCOSE POC 265(H) 70 - 99 MG/DL 07/13/2019 7:50 AM CDT [facility] ORDERS INTERFACE 07/13/2019 7:49 AM CDT Shmuel Alvarez MD POCT ORDERABLES - DEVICE Final R esult [facility] ORDERS INTERFACE US * (ABNORMAL) HEMOGLOBIN, GLYCOSYLATED (07/13/2019 5:10 AM CDT) HGB A1C 11.0(H) <5.7 % 07/13/2019 8:35 AM CDT [facility] Comment: ADA GUIDELINES 2010 5.7 TO 6.4% INCREASED RISK OF DIABETES > OR = 6.5% CONSISTENT WITH DIABETES TESTING PERFORMED AT [facility] [address] [place], [place] ??[address] 07/13/2019 5:10 AM CDT us Shmuel Alvarez MD LABORATORY Final Result Performing Organization Address City/[facility]/ZIP Co de Phone Number [facility] [address] [place] [address], [place] [phone] * MAGNESIUM (07/13/2019 5:10 AM CDT) MAGNESIUM 1.9 1.8 - 2.4 MG/DL 07/13/2019 7:41 AM CDT [facility] 07/13/2019 5:10 AM CDT us Shmuel Alvarez MD LABORATORY Final Result [facility] [address] [place] [address], [place] [phone] * (ABNORMAL) CBC W/DIFF AUTOMATED (07/13/2019 5:10 AM CDT) WBC 6.8 4.8 - 10.8 x10'3/uL 07/13/2019 7:47 AM CDT [facility] RBC 3.12(L) 4.10 - 5.10 x10'6/uL 07/13/2019 7:47 AM CDT [facility] HGB 8.8(L) 12.0 - 16.0 G/DL 07/13/2019 7:47 AM CDT [facility] HCT 28.8(L) 36 - 46 % 07/13/2019 7:47 AM CDT [facility] MCV 92.3 80 - 100 FL 07/13/2019 7:47 AM CDT [facility] MCH 28.2 26.0 - 34.0 PG 07/13/2019 7:47 AM CDT [facility] MCHC 30.6(L) 31.0 - 37.0 G/DL 07/13/2019 7:47 AM CDT [facility] RDW 16.7(H) 11.5 - 14.5 % 07/13/2019 7:47 AM CDT [facility] PLT 427(H) 150 - 350 x10'3/uL 07/13/2019 7:47 AM CDT [facility] CBC COMMENT AUTOMATED RBC MORPHOLOGY AND PLATELET EVALUATION NORMAL 07/13/2019 7:47 AM CDT [facility] NEUTROPHILS % 73.3(H) 50 - 70 % 07/13/2019 7:47 AM CDT [facility] LYMPHOCYTES % 16.7(L) 18 - 42 % 07/13/2019 7:47 AM CDT [facility] MONOCYTES % 6.0 2.0 - 11.0 % 07/13/2019 7:47 AM CDT [facility] EOSINOPHILS 3.7(H) 1.0 - 3.0 % 07/13/2019 7:47 AM CDT [facility] BASOPHILS 0.3 0.0 - 1.0 % 07/13/2019 7:47 AM CDT [facility] ABS. NEUTROPHILS TOTAL 4.99 1.69 - 7.81 x10'3/uL 07/13/2019 7:47 AM CDT [facility] 07/13/2019 5:10 AM CDT us Shmuel Alvarez MD LABORATORY Final Result [facility] [address] [place] [address], [place] [phone] * (ABNORMAL) BASIC METABOLIC PANEL (07/13/2019 5:10 AM CDT) [facility] GLUCOSE 240(H) 70 - 99 MG/DL 07/13/2019 7:41 AM T [facility] BUN 28(H) 7 - 18 MG/DL 07/13/2019 7:41 AM T [facility] CREATININE S/P/B 1.19(H) 0.55 - 1.02 MG/DL 07/13/2019 7:41 AM T [facility] SODIUM S/P/B 138 136 - 145 MMOL/L 07/13/2019 7:41 AM T [facility] POTASSIUM S/P/B 3.7 3.5 - 5.1 MMOL/L 07/13/2019 7:41 AM T [facility] CHLORIDE S/P/B 98(L) 100 - 108 MMOL/L 07/13/2019 7:41 AM T [facility] CO2 32.6(H) 21 - 32 MMOL/L 07/13/2019 7:41 AM [facility] CALCIUM S/P/B 9.0 8.5 - 10.1 MG/DL 07/13/2019 7:41 AM T [facility] ANION GAP 7.4 5 - 15 MMOL/L 07/13/2019 7:41 AM T [facility] BUN CREATININE RATIO 23.5 6 - 26 07/13/2019 7:41 AM T [facility] EGFR NON-AFR. AMER. 48(L) >90 ML/MIN/1.7 3 M2 07/13/2019 7:41 AM T [facility] EGFR AFR. AMER. 56(L) >90 ML/MIN/1.7 3 M2 07/13/2019 7:41 AM T [facility] Comment: NOTE: eGFR is not calculated for patients <18 years of age. This is an estimated GFR (CKD EPI) and should not be used for calculating drug doses. 07/13/2019 5:10 AM CDT Shmuel Alvarez MD LABORATORY Final Result Performing Organization Address City/[facility]/ZIP Co de Phone Number [facility] [address] [address], * (ABNORMAL) POCT glucose (07/12/2019 8:24 PM CDT) GLUCOSE POC 157(H) 70 - 99 MG/DL 07/12/2019 8:31 PM CDT [facility] ORDERS INTERFACE 07/12/2019 8:24 PM CDT Shmuel Alvarez MD POCT ORDERABLES - DEVICE Final R esult Performing Organization Address [facility] Co de Phone Number [facility] ORDERS INTERFACE US * (ABNORMAL) POCT glucose (07/12/2019 4:26 PM CDT) GLUCOSE POC 219(H) 70 - 99 MG/DL 07/12/2019 4:27 PM CDT [facility] ORDERS INTERFACE 07/12/2019 4:26 PM CDT Shmuel Alvarez MD POCT ORDERABLES - DEVICE Final R esult Performing Organization Address City/[facility]/ZIP Co de Phone Number [facility] ORDERS INTERFACE US * (ABNORMAL) POCT glucose (07/12/2019 11:35 AM CDT) GLUCOSE POC 164(H) 70 - 99 MG/DL 07/12/2019 11:39 AM CDT [facility] ORDERS INTERFACE 07/12/2019 11:3 5 AM CDT Shmuel Alvarez MD POCT ORDERABLES - DEVICE Final R esult Performing Organization Address [facility]/ZIP Co de Phone Number [facility] ORDERS INTERFACE US * (ABNORMAL) POCT glucose (07/12/2019 6:59 AM CDT) GLUCOSE POC 140(H) 70 - 99 MG/DL 07/12/2019 7:12 AM CDT [facility] ORDERS INTERFACE 07/12/2019 6:59 AM CDT us Shmuel Alvarez MD POCT ORDERABLES - DEVICE Final R esult Performing Organization Address [facility] Co de Phone Number [facility] ORDERS INTERFACE US * (ABNORMAL) POCT glucose (07/11/2019 8:03 PM CDT) GLUCOSE POC 188(H) 70 - 99 MG/DL 07/11/2019 8:16 PM CDT [facility] ORDERS INTERFACE 07/11/2019 8:03 PM CDT us Deyviopher Nina STATEMENT REQUEST CLERK POCT ORDERABLES - DEVICE Final Result Performing Organization Address [facility] Co de Phone Number [facility] ORDERS INTERFACE US * (ABNORMAL) POCT glucose (07/11/2019 4:17 PM CDT) GLUCOSE POC 118(H) 70 - 99 MG/DL 07/11/2019 4:22 PM CDT [facility] ORDERS INTERFACE 07/11/2019 4:17 PM CDT us Deyviopheric Wood STATEMENT REQUEST CLERK POCT ORDERABLES - DEVICE Final Result Performing Organization Address City/[facility]/ZIP Co de Phone Number [facility] ORDERS INTERFACE US * (ABNORMAL) POCT glucose (07/11/2019 11:22 AM CDT) GLUCOSE POC 296(H) 70 - 99 MG/DL 07/11/2019 11:31 AM CDT [facility] ORDERS INTERFACE 07/11/2019 11:2 2 AM CDT Ben Wood APRN POCT ORDERABLES - DEVICE Final Result [facility] ORDERS INTERFACE US * CK (CPK) (07/11/2019 7:40 AM CDT) CPK 74 26 - 192 U/L 07/11/2019 8:49 AM CDT [facility] 07/11/2019 7:40 AM CDT Fer Garrido MD LABORATORY Final Result Performing Organization Address City/[facility]/ZIP Co de Phone Number [facility] [address] [place] [address], * (ABNORMAL) POCT glucose (07/11/2019 7:34 AM CDT) GLUCOSE POC 188(H) 70 - 99 MG/DL 07/11/2019 7:37 AM CDT [facility] ORDERS INTERFACE 07/11/2019 7:34 AM CDT us Ben Wood APRN POCT ORDERABLES - DEVICE Final Result Performing Organization Address City[facility]/ZIP Co de Phone Number [facility] ORDERS INTERFACE US * (ABNORMAL) POCT glucose (07/10/2019 7:55 PM CDT) GLUCOSE POC 294(H) 70 - 99 MG/DL 07/10/2019 7:56 PM CDT [facility] ORDERS INTERFACE 07/10/2019 7:55 PM CDT Fer Garrido MD POCT ORDERABLES - DEVICE Final Result [facility] ORDERS INTERFACE US * (ABNORMAL) POCT glucose (07/10/2019 4:09 PM CDT) GLUCOSE POC 346(H) 70 - 99 MG/DL 07/10/2019 4:11 PM CDT [facility] ORDERS INTERFACE 07/10/2019 4:09 PM CDT Fer Garrido MD POCT ORDERABLES - DEVICE Final Result Performing Organization Address [facility] Phone Number [facility] ORDERS INTERFACE US * (ABNORMAL) POCT glucose (07/10/2019 11:17 AM CDT) GLUCOSE POC 280(H) 70 - 99 MG/DL 07/10/2019 11:29 AM CDT [facility] ORDERS INTERFACE 07/10/2019 11:1 7 AM CDT Fer Garrido MD POCT ORDERABLES - DEVICE Final Result Performing Organization Address [facility] Phone Number [facility] ORDERS INTERFACE US * (ABNORMAL) POCT glucose (07/10/2019 7:08 AM CDT) GLUCOSE POC 177(H) 70 - 99 MG/DL 07/10/2019 7:27 AM CDT [facility] ORDERS INTERFACE 07/10/2019 7:08 AM CDT Fer Garrido MD POCT ORDERABLES - DEVICE Final Result Performing Organization Address [facility] de Phone Number [facility] ORDERS INTERFACE US * (ABNORMAL) CBC W/DIFF AUTOMATED (07/10/2019 5:40 AM CDT) WBC 6.3 4.8 - 10.8 x10'3/uL 07/10/2019 7:03 AM CDT [facility] RBC 2.72(L) 4.10 - 5.10 x10'6/uL 07/10/2019 7:03 AM CDT [facility] HGB 7.8(L) 12.0 - 16.0 G/DL 07/10/2019 7:03 AM CDT [facility] HCT 24.9(L) 36 - 46 % 07/10/2019 7:03 AM CDT [facility] MCV 91.5 80 - 100 FL 07/10/2019 7:03 AM CDT [facility] MCH 28.7 26.0 - 34.0 PG 07/10/2019 7:03 AM CDT [facility] MCHC 31.3 31.0 - 37.0 G/DL 07/10/2019 7:03 AM T [facility] RDW 16.4(H) 11.5 - 14.5 % 07/10/2019 7:03 AM T [facility] PLT 395(H) 150 - 350 x10'3/uL 07/10/2019 7:03 AM T [facility] CBC COMMENT AUTOMATED RBC MORPHOLOGY AND PLATELET EVALUATION NORMAL 07/10/2019 7:03 AM T [facility] NEUTROPHILS % 64.1 50 - 70 % 07/10/2019 7:03 AM T [facility] LYMPHOCYTES % 24.2 18 - 42 % 07/10/2019 7:03 AM T [facility] MONOCYTES % 7.8 2.0 - 11.0 % 07/10/2019 7:03 AM T [facility] EOSINOPHILS 3.3(H) 1.0 - 3.0 % 07/10/2019 7:03 AM T [facility] BASOPHILS 0.6 0.0 - 1.0 % 07/10/2019 7:03 AM T [facility] ABS. NEUTROPHILS TOTAL 4.04 1.69 - 7.81 x10'3/uL 07/10/2019 7:03 AM [facility] 07/10/2019 5:40 AM CDT Fer Garrido MD LABORATORY Final Result [facility] [address] [place] [address], * (ABNORMAL) BASIC METABOLIC PANEL (07/10/2019 5:40 AM CDT) [facility] GLUCOSE 153(H) 70 - 99 MG/DL 07/10/2019 7:26 AM CDT [facility] BUN 20(H) 7 - 18 MG/DL 07/10/2019 7:26 AM T [facility] CREATININE S/P/B 0.75 0.55 - 1.02 MG/DL 07/10/2019 7:26 AM T [facility] SODIUM S/P/B 140 136 - 145 MMOL/L 07/10/2019 7:26 AM T [facility] POTASSIUM S/P/B 4.0 3.5 - 5.1 MMOL/L 07/10/2019 7:26 AM CDT [facility] CHLORIDE S/P/B 101 100 - 108 MMOL/L 07/10/2019 7:26 AM T [facility] CO2 33.5(H) 21 - 32 MMOL/L 07/10/2019 7:26 AM T [facility] CALCIUM S/P/B 8.8 8.5 - 10.1 MG/DL 07/10/2019 7:26 AM T [facility] ANION GAP 5.5 5 - 15 MMOL/L 07/10/2019 7:26 AM T [facility] BUN CREATININE RATIO 26.7(H) 6 - 26 07/10/2019 7:26 AM T [facility] EGFR NON-AFR. AMER. 84(L) >90 ML/MIN/1.7 3 M2 07/10/2019 7:26 AM T [facility] EGFR AFR. AMER. >90 >90 ML/MIN/1.7 3 M2 07/10/2019 7:26 AM CDT [facility] Comment: NOTE: eGFR is not calculated for patients <18 years of age. This is an estimated GFR (CKD EPI) and should not be used for calculating drug doses. 07/10/2019 5:40 AM CDT Fer Garrido MD LABORATORY Final Result Performing Organization Address [facility] Co de Phone Number [facility] [address] [place] [address], * (ABNORMAL) POCT glucose (07/10/2019 12:23 AM CDT) Pathologist [facility] GLUCOSE POC 182(H) 70 - 99 MG/DL 07/10/2019 12:26 AM CDT [facility] ORDERS INTERFACE 07/10/2019 12:2 3 AM CDT Fer Garrido MD POCT ORDERABLES - DEVICE Final Result Performing Organization Address [facility] de Phone Number [facility] ORDERS INTERFACE US * CLOSTRIDIUM DIFFICILE (07/09/2019 11:08 PM CDT) [facility] MOLECULAR ASSAY NEGATIVE NEGATIVE 07/10/2019 3:09 AM CDT [facility] Comment: NOTE: C. difficile molecular tests [...] IAN NIELSEN Final Result Performing Organization Address [facility]/ZIP Co de Phone Number [facility] [address] [place] [address], [place] [phone] documented in this encounter Visit Diagnoses Diagnosis [...] documented as of this encounter Care Teams Instructional Design Consultant Relationship Specialty Start Date End Date Don Branham MD [address] [place] [address] PCP - General EMERGENCY MEDICINE 05/10/19 Damon Swanson MD INTERNAL MEDICINE 12/10/18 documented as of this encounter
--- OUTSIDE RECORDS SUMMARY | 2024-02-27 03:25 | XMS_ITS | Encounter Summary ---
Author Organization [facility] Address [address] [place] [address]. [place] [address] [place] [address] Care Team Providers Care Robotic Technician Name Role Phone Damon Swanson MD Unavailable [phone] Don Branham MD Primary Care Provider [phone] Encounter Details Date Type Department Care Team [...] documented as of this encounter Care Teams Robotic Technician Relationship Specialty Start Date End Date Don Branham MD [address] [place] [address] PCP - General EMERGENCY MEDICINE 05/10/19 Damon Swanson MD INTERNAL MEDICINE 12/10/18 documented as of this encounter
--- OUTSIDE RECORDS SUMMARY | 2024-02-27 03:25 | XMS_ITS | Encounter Summary ---
Author Organization [facility] Address [address] [place] [address]. 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
--- OUTSIDE RECORDS SUMMARY | 2024-02-27 03:26 | XMS_ITS | Encounter Summary ---
Author Organization [facility] Address [address] [place] [address]. [place] [address] [place] [address] Care Team Providers Care Drapery Seamstress Name Role Phone Damon Swanson MD Unavailable [phone] Don Branham MD Primary Care Provider [phone] Reason for Visit * Auth/Cert Specialty Diagnoses / Procedures Referred By Contac t Referred To Contact Diagnoses Encephalopathy Elevated troponin Encephalopathy acute Encephalopathy acute Referral ID Status Reason Start Date Expiration Date Visits Re quested Visits Authorized [id number] 1 1 Encounter Details Date Type Department Care Team (Late st Contact Info) Description 07/04/2019 1:24 PM CDT Anesthesia Event [facility] [address] [place], [place] [id number] Racquel Cisneros MD [address] [id number] Anesthesia Record Procedure Summary Procedure Name Responsible Anesthesiologist Anesthesia Start Time Anesthesia Stop Time USE TRANSESOPHAGEAL ECHO Racquel Ness MD 07/04/19 1324 07/04/19 1406 Events Date Time Event Comment 07/04/2019 1247 Start Out of OR Vitals 1304 AN SENIOR EDUCATION SPECIALIST Prepped 1314 1314 AN Anesthesia Prepped 1324 [...] by Sharon Nixon RN 07/10/19 0235 by Iveilsse A Navin, NICHOLS Peripheral IV Placement Date: 07/03/19; Placement Time: 2237; Placed Outside of This Facility?: No; Size: 22 G; Orientation: Left; Location: Forearm, Cephalic; Site Prep: Chlorhexidine; Local Anesthetic: None; Insertion attempts: 1; Ultrasound-guided Placement?: No; Patient Tolerance: Tolerated well; Removal Date: 07/08/19; Removal Time: 1557; Removal Reason: Infiltrated 07/03/198 by Ivelisse Kothari RN 07/08/19 1557 by Marti Estrada RN Supraglottic Airway Placement Date: 07/04/19; Placement Time: 1340; Airway Device: Nasal pharyngeal airway; Placed By: GIGI; Extubation Assessment: Atraumatic; Removal Date: 07/04/19; Removal Time: 1402; Removal Person: SENIOR EDUCATION SPECIALIST; Removal Reason: End of Case 07/04/19 1340 [...] 07/04/19 1414 SpO2: 98% Patient Location: Other (Drive Tester) Level of Consciousness: awake, oriented and alert [...] URI Cardiovascular Exercise tolerance:poor (+) hypertension, past RI (NSTEMI - max troponin 0.14 ), Peripheral [...] documented as of this encounter Care Teams Drapery Seamstress Relationship Specialty Start Date End Date Don Branham MD [address] [place] [address] PCP - General EMERGENCY MEDICINE 05/10/19 Damon Swanson MD INTERNAL MEDICINE 12/10/18 documented as of this encounter
--- OUTSIDE RECORDS SUMMARY | 2024-02-27 03:26 | XMS_ITS | Encounter Summary ---
Author Organization [facility] Address [address] [place] [address]. [place] [address] [place] [address] Care Team Providers Care Elevator Pilot Name Role Phone Damon Swanson MD Unavailable [phone] Don Branham MD Primary Care Provider [phone] Reason for Referral * (Routine) - Closed Specialty Diagnoses / Procedures Referred By Leif t Referred To Contact Procedures Consult to wound care Gladys Padilla MD [address] [place] [address] Phone: tel: fax: Referral ID Status Reason Start Date Expiration Date Visits Re quested Visits Authorized [id number] Closed 06/05/2019 07/05/2020 1 1 * (Routine) - Canceled Specialty Diagnoses / Procedures Referred By Contza t Referred To Contact Procedures PT eval and treat Gladys Padilla MD [address] [place] [address] Phone: tel: fax: Referral ID Status Reason Start Date Expiration Date V isits Requested Visits Authorized [id number] Canceled 06/05/2019 07/05/2020 1 1 * Imaging (Emergency) - Closed Specialty Diagnoses / Procedures Referred By Contza t Referred To Contact RADIOLOGY Procedures CT HEAD WO CON Peterson Mcmillan PA [address] [place] [address] Phone: tel: fax: Referral ID Status Reason Start Date Expiration Date Visits Re quested Visits Authorized [id number] Closed 06/05/2019 07/05/2020 1 1 Reason for Visit * Reason Comments Weakness Hyperglycemia * Auth/Cert Specialty Diagnoses / Procedures Referred By Contac t Referred To Contact Diagnoses UTI (urinary tract infection) Weakness Hyperglycemia Hyperglycemia Referral ID Status Reason Start Date Expiration Date Visits Re quested Visits Authorized [id number] 1 1 Encounter Details Date Type Department Care Team (Late st Contact Info) Description 06/05/2019 1:41 PM CDT - 06/07/2019 6:48 PM CDT Emergency [facility] [place] [address] Peterson Mcmillan PA [address] [place], [place] [address] Gladys Padilla MD [address] [place], [place] [address] Loraine Ordoñez MD 1 [place], [place] [id number] [phone] (Work) Weakness; Hyperglycemia Discharge Disposition: Home with [...] No results for input(s): PH, PCO2, PO2, [id number], BICARBWB, BASEDEFICIT, BASEEXCESS in the [id number] hours. No results found for this or [...] re and dilator removed and a 4 Algerian 20 cm single midline was advanced to the level of the axillary vein. Position was confirmed fluoroscopically. Catheter was secured to the skin with adhesive dressing. Patient tolerated the procedure well. There were no immediate complications. Fluoroscopy time:2 seconds Number of images: 2 saved IMPRESSION: 1. Technically successful, right mid arm brachial 4 Algerian 20 cm midline catheter placement. Discharge Medications: [...] medications were sent to [facility] - [place], [place] - [address] [facility] [address] [facility] [address] ?? insulin glargine 100 UNIT/ML injection (PEN) [...] Written by the doctors and editors at [facility] Why is diet important in diabetes???--??Diet [...] process is complete. This topic retrieved from Modbook on: Oct 24, 2018. Topic 65628 Version 6.0 Release: 27.3.2 - C27.227 ?2019??[employer]. and/or its affiliates.??All rights reserved. Consumer Information [...] that is right for you.The use of Modbook content is governed by the Modbook Terms of Use. ??2019 [employer]. All rights reserved. Copyright ?2019??[employer]. and/or its affiliates.??All rights reserved. Patient Education [...] have them. Where can I learn more? [employer] https://familydoctor.org/condition/diabetes/ [place] Diabetes Association http://www.diabetes.org/ncbvsp-mlas-htneezch/zisrmvckv-qju-hkmi/cyleh-wgwaeed-ew ntrol/hyperglycemia.html Last Reviewed Date 2018-09-21 Consumer Information [...] for you. Copyright Copyright ?? 2019 [employer]. and its affiliates and/or licensors. All rights reserved. * Attachments The following attachments cannot be sent through Care Everywhere. * Insulin Glargine, ADULT (Nauruan) * Insulin Injection (Nauruan) * Low Blood Sugar in People With Diabetes (Nauruan) documented in this encounter Medications at Time [...] Home Pt was going to go to shelter but daughter Celina called maxime CRAMER, MECHANICAL DESIGN DRAFTER today and stated family plans to take pt home and care for her. They want home health and homemakers. MAXIME called Criss from [facility] to reach out to daughter about homemakers and referred to [facility]. They are havingtrouble getting fax and [...] Outcome: Met This Shift * Meche Alves, PACKAGE CLERK - 06/06/2019 2:45 PM CDT 06/06/19 1443 [...] He states that pt was just at [facility] and had went to hospital in [place] and when released her other son picked her up and she told him to take her home not to [place]. Son states that she cannot care for herself and needs to go back to [place]. MAXIME RCAMER, MECHANICAL DESIGN DRAFTER spoke with daughter Celina as well who confirms this. They would like for her to go back to [facility]. MAXIME faxed referral and tried to call and speak to someone several times but the phone just rings and nobody picks up. Will continue to follow up. DAVIN asked to screen. Pt could potentially be ready fordischarge tomorrow 06/06. MAXIME will follow up with [facility] for acceptance. If confusion continues ptwould need ambulance to transport to [place]. * Nevaeh Thompson, PT - 06/06/2019 12:49 [...] PT QUESTIONABLE HISTORIAN. Prior Function Level of [place] Needs assistance with ADLs;Needs assistance with homemaking;Needs [...] No results for input(s): PH, PCO2, PO2, [id number], BICARBWB, BASEDEFICIT, BASEEXCESS in the [id number] hours. No results found for this or [...] [facility] Pat.Name: IRIS PASCUAL Pat.ID:[id number] .Date: 05/08/2019 Refer.MD: Kimberley Durant Exam Time: 10:48:00 AM Study Type:FRANCISCO VS Arterial Doppler Legs BRENDON Age: 11 1955,64Y Sex: FEMALE Sonogrphr: THAI Benjamin Pat. Stat.:Inpatient Room: [facility] History / Clinical: LLE non healing [...] Pop A PSV 81.4 cm/s Left Dist PACKAGE CLERK Dist PACKAGE CLERK PSV 76.3 cm/s Left Dist MAKAYLA Dist MAKAYLA PSV 53.1 cm/s Right SQL BI DEVELOPER SQL BI DEVELOPER PSV 108 cm/s Right Dist Pop A Dist Pop A PSV 57.4 cm/s Right Dist PACKAGE CLERK Dist PACKAGE CLERK PSV 85.7 cm/s Right Dist MAKAYLA Dist [...] re and dilator removed and a 4 Algerian 20 cm single midline was advanced to the level of the axillary vein. Position was confirmed fluoroscopically. Catheter was secured to the skin with adhesive dressing. Patient tolerated the procedure well. There were no immediate complications. Fluoroscopy time:2 seconds Number of images: 2 saved IMPRESSION: 1. Technically successful, right mid arm brachial 4 Algerian 20 cm midline catheter placement. : Results for orders placed or performed during the hospital encounter of 06/05/19 ECG [address] [facility] [address] Test Date: 2019-06-05 Pat Name: IRIS PASCUAL Department: Room: B4 Gender: Female Room Attendants: DIONICIO : 1955 Requested By: PETERSON MCMILLAN Order Number: [id number] Reading MD: Jevon Tovar Measurements Intervals [place] Rate: 84 P: 56 ME: 144 QRS: -35 QRSD: 97 T: 59 [...] No results for input(s): PH, PCO2, PO2, [id number], BICARBWB, BASEDEFICIT, BASEEXCESS in the sygb889 hours. Imagining & Other Studies No results found. Results for orders placed or performed during the hospital encounter of 06/05/19 ECG 12 lead Narrative [facility] Test Date: 2019-06-05 Pat Name: IRIS PASCUAL Department: Room: [place] [address] Gender: Female Room Attendants: DIONICIO : 1955 Requested By: PETERSON MCMILLAN Order Number: [id number] Reading MD: Measurements Intervals [place] Rate: 84 P: 56 ME: 144 QRS: -35 QRSD: 97 T: 59 [...] BLOOD SUGAR OF 446. EST. CALORIE NEEDS: 8852-1200 TAVO(MSJX1.2-1.3) - 300 TAVO = 8488-5739 TAVO TO SUPPORT DESIRED WEIGHT LOSS. EST. [...] 06/05/2019 3:47 PM CDT Pt sent to [place] Bronwyn M Deprow, RN * CARLOS Ferris - 06/05/2019 3:33 PM CDT [place], [place] EMERGENCY DEPARTMENT ENCOUNTER HISTORICAL INFORMATION Primary [...] (ONCE), CARLOS Ferris, 500 mL at 06/05/19 5086 Current Outpatient Medications: ??? acetaminophen 500 MG [...] CATCH COLOR (U) YELLOW TRANSPARENCY CLOUDY Specific [place] (U) 1.017 1.001 - 1.030 U PH [...] XR CHEST PORTABLE Final Result by User, [id number] (06/04 5803) Examination: Chest x-ray 1 view Exam date/time: [...] HEAD WO CON Final Result by User, [id number] (06/04 9329) CT OF THE BRAIN WITHOUT CONTRAST INDICATION: [...] discharge and would like pt [facility]. Ems reports high blood sugar. Pt [...] - 99 mg/dL 06/07/2019 11:29 AM CDT [facility] ORDERS INTERFACE 06/07/2019 11:2 7 AM CDT us Loraine Ordoñez MD POCT ORDERABLES - GILMA CE Final Result [facility] ORDERS INTERFACE US * (ABNORMAL) BASIC METABOLIC PANEL (06/07/2019 6:09 AM CDT) GLUCOSE 159(H) 70 - 99 MG/DL 06/07/2019 7:32 AM CDT [facility] BUN 21(H) 7 - 18 MG/DL 06/07/2019 7:32 AM CDT [facility] CREATININE S/P/B 0.92 0.55 - 1.02 MG/DL 06/07/2019 7:32 AM CDT [facility] SODIUM S/P/B 137 136 - 145 MMOL/L 06/07/2019 7:32 AM CDT [facility] POTASSIUM S/P/B 3.9 3.5 - 5.1 MMOL/L 06/07/2019 7:32 AM CDT [facility] CHLORIDE S/P/B 101 100 - 108 MMOL/L 06/07/2019 7:32 AM CDT [facility] CO2 30.5 21 - 32 MMOL/L 06/07/2019 7:32 AM CDT [facility] CALCIUM S/P/B 8.6 8.5 - 10.1 MG/DL 06/07/2019 7:32 AM CDT [facility] ANION GAP 5.5 5 - 15 MMOL/L 06/07/2019 7:32 AM CDT [facility] BUN CREATININE RATIO 22.9 6 - 26 06/07/2019 7:32 AM CDT [facility] EGFR NON-AFR. AMER. 66(L) >90 ML/MIN/1.7 3 M2 06/07/2019 7:32 AM T [facility] EGFR AFR. AMER. 76(L) >90 ML/MIN/1.7 3 M2 06/07/2019 7:32 AM T [facility] Comment: NOTE: eGFR is not calculated for patients <18 years of age. This is an estimated GFR (CKD EPI) and should not be used for calculating drug doses. 06/07/2019 6:09 AM CDT us Gladys Padilla MD LABORATORY Final Result [facility] [address] [place] [address], [place] [phone] * (ABNORMAL) POCT glucose (06/07/2019 5:50 AM CDT) GLUCOSE POC 185(H) 70 - 99 mg/dL 06/07/2019 5:53 AM CDT [facility] ORDERS INTERFACE 06/07/2019 5:50 AM CDT us Loraine Ordoñez MD POCT ORDERABLES - GILMA CE Final Result Performing Organization Address City/[facility]/ZIP Co de Phone Number [facility] ORDERS INTERFACE US * (ABNORMAL) POCT glucose (06/06/2019 8:36 PM CDT) GLUCOSE POC 233(H) 70 - 99 mg/dL 06/06/2019 8:41 PM CDT [facility] ORDERS INTERFACE 06/06/2019 8:36 PM CDT us Loraine Ordoñez MD POCT ORDERABLES - GILMA CE Final Result Performing Organization Address City/[facility] Co de Phone Number [facility] ORDERS INTERFACE US * (ABNORMAL) POCT glucose (06/06/2019 4:07 PM CDT) GLUCOSE POC 162(H) 70 - 99 mg/dL 06/06/2019 4:11 PM CDT [facility] ORDERS INTERFACE 06/06/2019 4:07 PM CDT us Loraine Ordoñez MD POCT ORDERABLES - GILMA CE Final Result [facility] ORDERS INTERFACE US * (ABNORMAL) POCT glucose (06/06/2019 11:34 AM CDT) GLUCOSE POC 200(H) 70 - 99 mg/dL 06/06/2019 11:53 AM CDT [facility] ORDERS INTERFACE 06/06/2019 11:3 4 AM CDT us Loraine Ordoñez MD POCT ORDERABLES - GILMA CE Final Result [facility] ORDERS INTERFACE US * POCT glucose (06/06/2019 7:20 AM CDT) GLUCOSE POC 93 70 - 99 mg/dL 06/06/2019 7:24 AM CDT [facility] ORDERS INTERFACE 06/06/2019 7:20 AM CDT us Loarine Ordoñez MD POCT ORDERABLES - GILMA CE Final Result [facility] ORDERS INTERFACE US * (ABNORMAL) BASIC METABOLIC PANEL (06/06/2019 7:07 AM CDT) GLUCOSE 74 70 - 99 MG/DL 06/06/2019 8:32 AM CDT [facility] BUN 19(H) 7 - 18 MG/DL 06/06/2019 8:32 AM CDT [facility] CREATININE S/P/B 0.82 0.55 - 1.02 MG/DL 06/06/2019 8:32 AM CDT [facility] SODIUM S/P/B 138 136 - 145 MMOL/L 06/06/2019 8:32 AM CDT [facility] POTASSIUM S/P/B 4.0 3.5 - 5.1 MMOL/L 06/06/2019 8:32 AM CDT [facility] CHLORIDE S/P/B 103 100 - 108 MMOL/L 06/06/2019 8:32 AM CDT [facility] CO2 29.9 21 - 32 MMOL/L 06/06/2019 8:32 AM CDT [facility] CALCIUM S/P/B 8.0(L) 8.5 - 10.1 MG/DL 06/06/2019 8:32 AM CDT [facility] ANION GAP 5.1 5 - 15 MMOL/L 06/06/2019 8:32 AM CDT [facility] BUN CREATININE RATIO 23.1 6 - 26 06/06/2019 8:32 AM CDT [facility] EGFR NON-AFR. AMER. 76(L) >90 ML/MIN/1.7 3 M2 06/06/2019 8:32 AM CDT [facility] EGFR AFR. AMER. 88(L) >90 ML/MIN/1.7 3 M2 06/06/2019 8:32 AM CDT [facility] Comment: NOTE: eGFR is not calculated for patients <18 years of age. This is an estimated GFR (CKD EPI) and should not be used for calculating drug doses. 06/06/2019 7:07 AM CDT Gladys Padilla MD LABORATORY Final Result [facility] [address] [place] [address], [place] [phone] * (ABNORMAL) THYROXINE, FREE (FT4) (06/06/2019 7:07 AM CDT) FREE T4 0.44(L) 0.76 - 1.46 NG/DL 06/06/2019 8:32 AM CDT [facility] 06/06/2019 7:07 AM CDT Gladys Padilla MD LABORATORY Final Result [facility] [address] [place] [address], [place] [phone] * (ABNORMAL) CBC W/DIFF AUTOMATED (06/06/2019 7:07 AM CDT) [facility] WBC 6.9 4.5 - 11.0 x10'3/uL 06/06/2019 7:34 AM CDT [facility] RBC 2.92(L) 4.20 - 5.40 x10'6/uL 06/06/2019 7:34 AM CDT [facility] HGB 8.6(L) 12.0 - 16.0 G/DL 06/06/2019 7:34 AM CDT [facility] HCT 26.9(L) 38.0 - 48.0 % 06/06/2019 7:34 AM CDT [facility] MCV 92.1 80.0 - 94.0 FL 06/06/2019 7:34 AM CDT [facility] MCH 29.5 27.0 - 31.0 PG 06/06/2019 7:34 AM CDT [facility] MCHC 32.0 32.0 - 36.0 G/DL 06/06/2019 7:34 AM CDT [facility] RDW 14.6(H) 11.5 - 14.5 % 06/06/2019 7:34 AM CDT [facility] PLT 295 130 - 400 x10'3/uL 06/06/2019 7:34 AM CDT [facility] MPV 9.5 9.3 - 12.2 FL 06/06/2019 7:34 AM CDT [facility] DIFFERENTIAL TYPE AUTOMATED DIFFERENTIAL 06/06/2019 7:34 AM CDT [facility] NEUTROPHILS % 70.2 % 06/06/2019 7:34 AM CDT [facility] LYMPHOCYTES % 18.0 % 06/06/2019 7:34 AM CDT [facility] MONOCYTES % 8.2 % 06/06/2019 7:34 AM CDT [facility] EOSINOPHILS 2.3 % 06/06/2019 7:34 AM CDT [facility] BASOPHILS 0.9 % 06/06/2019 7:34 AM CDT [facility] IMMATURE GRANS % 0.4 % 06/06/19 20 7:34 AM CDT [facility] ABS. NEUTROPHILS TOTAL 4.82 1.80 - 7.70 x10'3/uL 06/06/2019 7:34 AM CDT [facility] ABS. LYMPHOCYTES 1.24 1.00 - 4.80 x10'3/uL 06/06/2019 7:34 AM CDT [facility] ABS. MONOCYTES 0.56 0.24 - 0.86 x10'3/uL 06/06/2019 7:34 AM CDT [facility] ABS. EOSINOPHILS 0.16 0.04 - 0.36 x10'3/uL 06/06/2019 7:34 AM CDT [facility] ABS. BASOPHILS 0.06 0.01 - 0.08 x10'3/uL 06/06/2019 7:34 AM CDT [facility] ABS. IMMATURE GRANULOCYTES 0.03 0.00 - 0.49 x10'3/uL 06/06/2019 7:34 AM CDT [facility] 06/06/2019 7:07 AM CDT us Gladys Padilla MD LABORATORY Final Result [facility] [address] [place] [address], * (ABNORMAL) THYROID STIM HORMONE, TSH (06/06/2019 7:07 AM CDT) TSH 17.600(H) 0.358 - 3.74 uIU/ML 06/06/2019 8:32 AM CDT [facility] Comment: HIGH DOSES OF BIOTIN MAY INTERFERE WITH THIS TEST RESULT. CORRELATION TO CLINICAL HISTORY AND PRESENTATION RECOMMENDED. 06/06/2019 7:07 AM CDT Gladys Padilla MD LABORATORY Final Result Performing Organization Address City/[facility]/ZIP Co de Phone Number [facility] [address] [place] [address], [place] [phone] * (ABNORMAL) POCT glucose (06/06/2019 6:12 AM CDT) GLUCOSE POC 58(L) 70 - 99 mg/dL 06/06/2019 6:49 AM CDT [facility] ORDERS INTERFACE 06/06/2019 6:12 AM CDT us Loraine Ordoñez MD POCT ORDERABLES - GILMA CE Final Result Performing Organization Address [facility]/ZIP Co de Phone Number [facility] ORDERS INTERFACE US * (ABNORMAL) POCT glucose (06/05/2019 11:46 PM CDT) GLUCOSE POC 220(H) 70 - 99 mg/dL 06/05/2019 11:54 PM CDT [facility] ORDERS INTERFACE 06/05/2019 11:4 6 PM CDT us Gladys Padilla MD POCT ORDERABLES - DEVICE Final Result [facility] ORDERS INTERFACE US * (ABNORMAL) POCT glucose (06/05/2019 9:03 PM CDT) GLUCOSE POC 308(H) 70 - 99 mg/dL 06/05/2019 9:05 PM CDT [facility] ORDERS INTERFACE 06/05/2019 9:03 PM CDT us Gladys Padilla MD POCT ORDERABLES - DEVICE Final Result [facility] ORDERS INTERFACE US * (ABNORMAL) POCT glucose (06/05/2019 7:15 PM CDT) GLUCOSE POC 342(H) 70 - 99 mg/dL 06/05/2019 7:17 PM CDT [facility] ORDERS INTERFACE 06/05/2019 7:15 PM CDT us Gladys Padilla MD POCT ORDERABLES - DEVICE Final Result Performing Organization Address City/[facility]/ZIP Co de Phone Number [facility] ORDERS INTERFACE US * (ABNORMAL) Bedside Blood Glucose (06/05/2019 5:55 PM CDT) GLUCOSE WHOLE BLOOD 346(A) 70 - 100 mg/dL Gladys Padilla MD NURSING TREATMENT ORDERABLES - ONCE OR INTERVALS Final Result * (ABNORMAL) POCT glucose (06/05/2019 5:54 PM CDT) GLUCOSE POC 342(H) 70 - 99 mg/dL 06/05/2019 5:55 PM CDT [facility] ORDERS INTERFACE 06/05/2019 5:54 PM CDT us Gladys Padilla MD POCT ORDERABLES - DEVICE Final Result [facility] ORDERS INTERFACE US * (ABNORMAL) POCT glucose (06/05/2019 4:17 PM CDT) GLUCOSE WHOLE BLOOD 406(A) 70 - 100 mg/dL [facility] us Peterson GONZALEZ POCT ORDERABLES - DEVICE F inal Result [facility] [address] [place] [address], [place] [phone] * (ABNORMAL) POCT glucose (06/05/2019 4:15 PM CDT) GLUCOSE POC 406(HH) 70 - 99 mg/dL 06/05/2019 4:25 PM CDT [facility] ORDERS INTERFACE 06/05/2019 4:15 PM CDT us Peterson GONZALEZ POCT ORDERABLES - DEVICE F inal Result [facility] ORDERS INTERFACE US * (ABNORMAL) BLOOD GAS, VENOUS, W/LACTATE (06/05/2019 4:15 PM CDT) Pathologist [facility] TIME TEST WAS PERFORMED: 1616 06/05/2019 4:16 PM CDT [facility] SAMPLE TYPE VENOUS 06/05/2019 4:16 PM CDT [facility] COIL REPAIR TECHNICIAN CODE 525,366 06/05/2019 4:16 PM CDT [facility] PH VENOUS 7.38 7.32 - 7.42 06/05/2019 4:18 PM CDT [facility] PCO2 VENOUS 56.8(H) 40 - 50 MMHG 06/05/2019 4:18 PM CDT [facility] PO2 VENOUS 33.0 30 - 50 MM HG 06/05/2019 4:18 PM CDT [facility] BICARB VENOUS 33.7(H) 24 - 28 MMOL/L 06/05/2019 4:18 PM CDT [facility] TCO2 35.4 25 - 40 MMOL/L 06/05/2019 4:18 PM CDT [facility] VENOUS BASE EXCESS 7.4(H) 0 - 2 MMOL/L 06/05/2019 4:18 PM CDT [facility] HEMOGLOBIN BLOOD GAS 8.9(L) 12.0 - 16.0 G/DL 06/05/2019 4:18 PM CDT [facility] % O2 HEMOGLOBIN VENOUS 57.4(LL) >65 % 06/05/2019 4:18 PM CDT [facility] Comment: Successful Call: [facility] called 06/05/2019 04:18 PM to PETERSON MCMILLAN PA ( /PETERSON MCMILLAN PA) by [phone]. CARBON MONOXIDE/COHB 1.5 <3 % 06/05/2019 4:18 PM CDT [facility] METHEMOGLOBIN/M ETHB 0.8 <3 % 06/05/2019 4:18 PM CDT [facility] O2 CONTENT 7.2(L) 11.0 - 16.0 VOL% 06/05/2019 4:18 PM CDT [facility] LACTIC ACID VENOUS 1.5 0.0 - 2.2 MMOL/L 06/05/2019 4:18 PM CDT [facility] 06/05/2019 4:15 PM CDT us Peterson GONZALEZ LABORATORY Final Resu lt [facility] [address] [place] [address], [place] [phone] * XR CHEST PORTABLE (06/05/2019 4:10 PM CDT) Anatomical Region Laterality Modality Chest Radiographic Sylvia ging 06/05/2019 4:13 PM CDT Impressions 06/05/2019 [...] URINE CLEAN CATCH 06/05/2019 4:24 PM CDT [facility] SPECIAL REQUESTS NO SPECIAL REQUEST 06/05/2019 4:24 PM CDT [facility] CULTURE RESULT NO GROWTH 2 DAYS 06/07/2019 8:30 AM CDT [facility] URINE SPECIMEN OBTAINED BY CLEAN CATCH PROCEDURE / Unknown 06/05/2019 3:42 PM CDT 06/05/2019 4:24 PM CDT Peterson GONZALEZ MICROBIOLOGY - GENERAL ORD ERABLES Final Result [facility] [address] [place] [address], [place] [phone] * (ABNORMAL) URINALYSIS WI REFLEX TO CULTURE (06/05/2019 3:42 PM CDT) SPECIMEN TYPE URINE CLEAN CATCH 06/05/2019 3:39 PM CDT [facility] COLOR (U) YELLOW 06/05/2019 4:20 PM CDT [facility] TRANSPARENCY CLOUDY 06/05/2019 4:20 PM CDT [facility] SPECIFIC GRAVITY (U) 1.017 1.001 - 1.030 06/05/2019 4:20 PM CDT [facility] U PH 7.0 5.0 - 9.0 06/05/2019 4:20 PM CDT [facility] LEUKOCYTES (U) LARGE(A) NEGATIVE 06/05/2019 4:20 PM CDT [facility] NITRITES NEGATIVE NEGATIVE 06/05/2019 4:20 PM CDT [facility] PROTEIN (U) 100(H) <30 MG/DL 06/05/2019 4:20 PM CDT [facility] URINE GLUCOSE >500(A) NEGATIVE MG/DL 06/05/2019 4:20 PM CDT [facility] KETONES MG/DL (U) NEGATIVE NEGATIVE MG/DL 06/05/2019 4:20 PM CDT [facility] UROBILINOGEN NEGATIVE NEGATIVE MG/DL 06/05/2019 4:20 PM CDT [facility] BILIRUBIN (U) NEGATIVE NEGATIVE MG/DL 06/05/2019 4:20 PM CDT [facility] BLOOD (U) LARGE(A) NEGATIVE 06/05/2019 4:20 PM CDT [facility] CULTURE & SENSITIVITY INDICATED? SPECIMEN SETUP FOR CULTURE 06/05/2019 4:20 PM CDT [facility] SQUAMOUS EPITHELIALS FEW /LPF 06/05/2019 4:20 PM CDT [facility] WBC/HPF >100(H) <6 /HPF 06/05/2019 4:20 PM CDT [facility] WBC CLUMPS PRESENT 06/05/2019 4:20 PM CDT [facility] RBC/HPF >100(H) <6 /HPF 06/05/2019 4:20 PM CDT [facility] URINE SPECIMEN OBTAINED BY CLEAN CATCH PROCEDURE / Unknown 06/05/2019 3:42 PM CDT us Peterson Mcmillan PA URINE ORDERABLES Final Res ult [facility] [address] [place] [address], * POCT KETONES (06/05/2019 3:32 PM CDT) KETONES S/P/B 0.1 0.0 - 0.5 mmol/L 06/05/2019 3:33 PM CDT [facility] ORDERS INTERFACE 06/05/2019 3:32 PM CDT us Peterson GONZALEZ POINT OF CARE TEST ORDERAB LES Final Result [facility] ORDERS INTERFACE US * ECG 12 lead (06/05/2019 2:03 PM CDT) 06/05/2019 2:03 PM CDT Narrative [facility] ([place]) RAD - 06/05/2019 11:12 PM CDT ?[facility] ? [address] Pendleton MD ? Test Date: ?2019-06-05 Pat Name: ? IRIS PASCUAL ? Department: ? Room: ? B437 Gender: ? Female ? Room Attendants: ?? ND : ?1955 ? Requested By: PETERSON MCMILLAN Order Number: [id number] ? Reading MD: ?? Jevon Tovar ? Measurements Intervals ?[place] ? Rate: ? 84 ? P: ?56 ME: ? 144 ?QRS: ?-35 QRSD: ? 97 [...] Procedure Note Jevon Tovar MD - 06/05/[address] Test Date: 2019-06-05 Pat Name: IRIS PASCUAL Department: Room: [facility] Gender: Female Room Attendants: DIONICIO : 1955 Requested By: PETERSON MCMILLAN Order Number: [id number] Reading MD: Jevon Tovar Measurements Intervals [place] Rate: 84 P: 56 ME: 144 QRS: -35 QRSD: 97 T: 59 [...] ORDERABLES Final Resu lt Performing Organization Address [facility]/ZIP Co de Phone Number [facility] * MAGNESIUM (06/05/2019 1:54 PM CDT) Pathologist [facility] MAGNESIUM 2.0 1.8 - 2.4 MG/DL 06/05/2019 6:34 PM CDT [facility] 06/05/2019 1:54 PM CDT Gladys Padilla MD LABORATORY Final Result Performing Organization Address [facility]/ZIP Co de Phone Number [facility] [address] [place] [address], [place] [phone] * (ABNORMAL) THYROID STIM HORMONE, TSH (06/05/2019 1:54 PM CDT) Pathologist [facility] TSH 13.300(H) 0.358 - 3.74 uIU/ML 06/05/2019 4:34 PM CDT [facility] Comment: HIGH DOSES OF BIOTIN MAY INTERFERE WITH THIS TEST RESULT. CORRELATION TO CLINICAL HISTORY AND PRESENTATION RECOMMENDED. 06/05/2019 1:54 PM CDT [facility] Final Resu lt Performing Organization Address City/[facility]/ZIP Co de Phone Number [facility] [address] [place] [address], [place] [phone] * LACTIC ACID (06/05/2019 1:54 PM CDT) LACTIC ACID VENOUS 1.7 0.4 - 2.0 MMOL/L 06/05/2019 3:06 PM CDT [facility] 06/05/2019 1:54 PM CDT [facility] Final Resu lt Performing Organization Address [facility]/ZIP Co de Phone Number [facility] [address] [place] [address], [place] [phone] * (ABNORMAL) COMPREHENSIVE METABOLIC PANEL (06/05/2019 1:54 PM CDT) GLUCOSE 446(HH) 70 - 99 MG/DL 06/05/2019 3:10 PM CDT [facility] Comment: AGATHA CALLED CRITICAL RESULTS AT [id number] TO AND READ BACK BY BRONWYN MEJIA BUN 23(H) 7 - 18 MG/DL 06/05/2019 3:10 PM CDT [facility] CREATININE S/P/B 1.19(H) 0.55 - 1.02 MG/DL 06/05/2019 3:10 PM CDT [facility] SODIUM S/P/B 131(L) 136 - 145 MMOL/L 06/05/2019 3:10 PM CDT [facility] POTASSIUM S/P/B 4.3 3.5 - 5.1 MMOL/L 06/05/2019 3:10 PM CDT [facility] CHLORIDE S/P/B 96(L) 100 - 108 MMOL/L 06/05/2019 3:10 PM CDT [facility] CO2 29.9 21 - 32 MMOL/L 06/05/2019 3:10 PM CDT [facility] CALCIUM S/P/B 8.4(L) 8.5 - 10.1 MG/DL 06/05/2019 3:10 PM CDT [facility] BILIRUBIN TOTAL S/P/B 0.8 0.2 - 1.2 MG/DL 06/05/2019 3:10 PM CDT [facility] Comment: THIS ASSAY IS NOT RECOMMENDED FOR PATIENTS UNDERGOING TREATMENT WITH ELTROMBOPAG DUE TO THE POTENTIAL FOR FALSELY ELEVATED RESULTS. TOTAL PROTEIN S/P/B 8.1 6.4 - 8.2 G/DL 06/05/2019 3:10 PM CDT [facility] ALBUMIN S/P/B 3.1(L) 3.4 - 5.0 G/DL 06/05/2019 3:10 PM CDT [facility] AST 23 15 - 37 U/L 06/05/2019 3:10 PM CDT [facility] ALT 30 14 - 55 U/L 06/05/2019 3:10 PM CDT [facility] ALKALINE PHOSPHATASE S/P/B 70 50 - 136 U/L 06/05/2019 3:10 PM CDT [facility] ANION GAP 5.1 5 - 15 MMOL/L 06/05/2019 3:10 PM CDT [facility] BUN CREATININE RATIO 19.3 6 - 26 06/05/2019 3:10 PM CDT [facility] A/G RATIO 0.6(L) 1.0 - 2.0 RATIO 06/05/2019 3:10 PM CDT [facility] EGFR NON-AFR. AMER. 48(L) >90 ML/MIN/1.7 3 M2 06/05/2019 3:10 PM CDT [facility] EGFR AFR. AMER. 56(L) >90 ML/MIN/1.7 3 M2 06/05/2019 3:10 PM CDT [facility] Comment: NOTE: eGFR is not calculated for patients <18 years of age. This is an estimated GFR (CKD EPI) and should not be used for calculating drug doses. 06/05/2019 1:54 PM CDT [facility] Final Resu lt [facility] [address] [place] [address], [place] [phone] * (ABNORMAL) CBC W/DIFF AUTOMATED (06/05/2019 1:54 PM CDT) WBC 7.2 4.5 - 11.0 x10'3/uL 06/05/2019 3:07 PM CDT [facility] RBC 3.14(L) 4.20 - 5.40 x10'6/uL 06/05/2019 3:07 PM CDT [facility] HGB 9.2(L) 12.0 - 16.0 G/DL 06/05/2019 3:07 PM CDT [facility] HCT 28.3(L) 38.0 - 48.0 % 06/05/2019 3:07 PM CDT [facility] MCV 90.1 81.0 - 99.0 FL 06/05/2019 3:07 PM CDT [facility] MCH 29.3 27.0 - 31.0 PG 06/05/2019 3:07 PM CDT [facility] MCHC 32.5 32.0 - 36.0 G/DL 06/05/2019 3:07 PM CDT [facility] RDW 14.3 11.5 - 14.5 % 06/05/2019 3:07 PM CDT [facility] PLT 304 130 - 400 x10'3/uL 06/05/2019 3:07 PM CDT [facility] MPV 10.0 9.3 - 12.2 FL 06/05/2019 3:07 PM CDT [facility] DIFFERENTIAL TYPE AUTOMATED DIFFERENTIAL 06/05/2019 3:07 PM CDT [facility] NEUTROPHILS % 66.8 % 06/05/2019 3:07 PM CDT [facility] LYMPHOCYTES % 19.6 % 06/05/2019 3:07 PM CDT [facility] MONOCYTES % 10.3 % 06/05/2019 3:07 PM CDT [facility] EOSINOPHILS 2.0 % 06/05/2019 3:07 PM CDT [facility] BASOPHILS 0.7 % 06/05/2019 3:07 PM CDT [facility] IMMATURE GRANS % 0.6 % 06/05/19 20 3:07 PM CDT [facility] ABS. NEUTROPHILS TOTAL 4.79 1.80 - 7.70 x10'3/uL 06/05/2019 3:07 PM CDT [facility] ABS. LYMPHOCYTES 1.40 1.00 - 4.80 x10'3/uL 06/05/2019 3:07 PM CDT [facility] ABS. MONOCYTES 0.74 0.24 - 0.86 x10'3/uL 06/05/2019 3:07 PM CDT [facility] ABS. EOSINOPHILS 0.14 0.04 - 0.36 x10'3/uL 06/05/2019 3:07 PM CDT [facility] ABS. BASOPHILS 0.05 0.01 - 0.08 x10'3/uL 06/05/2019 3:07 PM CDT [facility] ABS. IMMATURE GRANULOCYTES 0.04 0.00 - 0.49 x10'3/uL 06/05/2019 3:07 PM CDT [facility] 06/05/2019 1:54 PM CDT [facility] Final Resu lt [facility] [address] [place] [address], * (ABNORMAL) POCT glucose (06/05/2019 1:47 PM CDT) [facility] GLUCOSE POC 449() 70 - 99 mg/dL 06/05/2019 1:49 PM CDT [facility] INTERFACE 06/05/2019 1:47 PM CDT [facility] ORDERABLES - DEVICE F inal Result Performing Organization Address City/[facility]/ZIP Co de Phone Number [facility] INTERFACE US documented [...] Physician] documented in this encounter Care Teams Elevator Pilot Relationship Specialty Start Date End Date Don Branham MD [address] [place] [address] PCP - General EMERGENCY MEDICINE 05/10/19 Damon Swanson MD INTERNAL MEDICINE 12/10/18 documented as of this encounter
--- OUTSIDE RECORDS SUMMARY | 2024-02-27 03:26 | XMS_ITS | Encounter Summary ---
Author Organization [facility] Address [address] [place] [address]. [place] [address] [place] [address] Care Team Providers Care Logging Engineer Name Role Phone Annamaria Swanson MD Unavailable [phone] Don Branham MD Primary Care Provider [phone] Reason for Referral * (Routine) - Canceled Specialty Diagnoses / Procedures Referred By Leif hilton Referred To Contact Procedures PT eval and treat [facility] [place] [address] Phone: tel: fax: Referral ID Status Reason Start Date Expiration Date V isits Requested Visits Authorized [id number] Canceled 07/05/2019 08/03/2020 1 1 * Imaging (Urgent) - Closed Specialty Diagnoses / Procedures Referred By Leif hilton Referred To Contact RADIOLOGY Procedures USE TRANSESOPHAGEAL ECHO Sharon Ortez NP 1 [place] [address] Phone: tel: [phone] fax: Referral ID Status Reason Start Date Expiration Date Visits Re quested Visits Authorized [id number] Closed 07/06/2019 08/01/2020 1 1 * Imaging (Urgent) - Closed Specialty Diagnoses / Procedures Referred By Contac t Referred To Contact RADIOLOGY Procedures MRI ANKLE RT WO CON MRI FOOT RT WO CON [place] [address] Phone: tel: fax: Referral ID Status Reason Start Date Expiration Date Visits Re quested Visits Authorized [id number] Closed 07/01/2019 07/30/2020 1 1 * Imaging (Urgent) - Closed Specialty Diagnoses / Procedures Referred By Contac t Referred To Contact RADIOLOGY Procedures USE ECHOCARDIOGRAM W CON USE ECHOCARDIOGRAM [place] [address] Phone: tel: fax: Referral ID Status Reason Start Date Expiration Date Visits Re quested Visits Authorized [id number] Closed 06/28/2019 07/27/2020 1 1 * (Routine) - Canceled Specialty Diagnoses / Procedures Referred By Leif t Referred To Contact Procedures OT eval [place] [address] Phone: tel: fax: Referral ID Status Reason Start Date Expiration Date V isits Requested Visits Authorized [id number] Canceled 06/28/2019 07/27/2020 1 1 * (Routine) - Canceled Specialty Diagnoses / Procedures Referred By Leif t Referred To Contact Procedures PT eval [place] [address] Phone: tel: fax: Referral ID Status Reason Start Date Expiration Date V isits Requested Visits Authorized [id number] Canceled 06/28/2019 07/27/2020 1 1 * (Routine) - Closed Specialty Diagnoses / Procedures Referred By Contac t Referred To Contact Procedures Critical Care Amanda Moore MD [address] [address] Phone: tel: fax: Referral ID Status Reason Start Date Expiration Date Visits Re quested Visits Authorized [id number] Closed 06/28/2019 07/27/2020 1 1 * Imaging (Emergency) - Closed Specialty Diagnoses / Procedures Referred By Contac t Referred To Contact RADIOLOGY Procedures CT CERV SPINE WO CON Amanda Moore MD [address] [address] Phone: tel: fax: Referral ID Status Reason Start Date Expiration Date Visits Re quested Visits Authorized [id number] Closed 06/28/2019 07/27/2020 1 1 * Imaging (Emergency) - Closed Specialty Diagnoses / Procedures Referred By Contac t Referred To Contact RADIOLOGY Procedures CT HEAD WO CON Amanda Moore MD [address] [address] Phone: tel: fax: Referral ID Status Reason Start Date Expiration Date Visits Re quested Visits Authorized [id number] Closed 06/28/2019 07/27/2020 1 1 Reason for Visit * Reason Comments Fall Hyperglycemia * Auth/Cert Specialty Diagnoses / Procedures Referred By Contac t Referred To Contact Diagnoses Encephalopathy Elevated troponin Encephalopathy acute Encephalopathy acute Referral ID Status Reason Start Date Expiration Date Visits Re quested Visits Authorized [id number] 1 1 Encounter Details Date Type Department Care Team (Late st Contact Info) Description 06/28/2019 1:27 PM CDT - 07/09/2019 5:32 PM CDT Hospital Encounter [facility] [place] [address] Amanda Moore MD [address] [address] Savanna Ardon MD 1 [place] [address] [phone] (Work) Loraine Penaloza MD 1 [place] [address] [phone] (Work) Sharon Ortez NP 1 [facility] [place] [address] [phone] (Work) Lauren Bee NP 1 [place], [place] [address] Fabiola Carter MD 1 [place] [address] [phone] (Work) Andres Khan APRN [place], [place] [address] Fall; Hyperglycemia Discharge Disposition: Swing Bed Social [...] at her granddaughter's home. Upon arrival, Ms. iGl was found to be confused with elevated [...] to swing bed. She was accepted to [facility] for antibiotics through 07/16 and then will return back to [facility]. See below for details during hospitalization. [...] No results for input(s): PH, PCO2, PO2, [id number], BICARBWB, BASEDEFICIT, BASEEXCESS in the [id number] hours. No results found for this or any previous visit. Radiology Reports : Radiology Results (Last 30 days) 07/08/19 0091 XR ABD KUB Final result Impression: IMPRESSION: [...] MG SOLR 625 mg Disposition: SWB at [facility] Time Spent on Discharge >30 minutes Signed: [...] pt's dtr,Celina,at 5:30Pm and confirmed d/c to [facility]. * Harlan Zuluaga LCSW - 07/09/2019 5:32 [...] No results for input(s): PH, PCO2, PO2, Y7ZNEDYEPRKQ, BICARBWB, BASEDEFICIT, BASEEXCESS in the [id number] hours. No results found for this or [...] All plans discussed with RN and patient/patient's family/nonfarm animal caretaker. They are agreeable with plan and voiced understanding. This note was dictated with [employer] medical dictation software; misspellings, punctuation errors, omitted words or dictation variances may occur. ANDRES KHAN APRN 07/09/2019 11:46 AM Cosigned by Quiana Buenrostro MD at 07/10/2019 7:47 AM CDT * Meche Alves, FACILITIES DIRECTOR - 07/09/2019 11:03 AM CDT 07/09/19 1102 Therapy Visit Subjective Attmpted to see pt for PT but RN present to get ready to clean her up. Will check back later time today as able * Harlan Zuluaga LCSW - 07/09/2019 9:08 AM CDT This PRECIOUS contacted Katie at [facility] and informed her pt will continue on [...] PRECIOUS contacted pt's dtr,Celina,to confirm referrals to [facility] and [facility] which PRECIOUS completed. [facility]wait [facility]. Precious informed pt's nurse,Merle,the name of contact at facility for report.Precious set a will call [email or web address] customer support coordinator for later today.Precious checked with pt's nurse at 4:50Pm confirming the floor had called [facility] to customer support coordinator and were waiting for arrival of ambulance.Precious [...] HEENT: ROSETTE, EOMI CVS: S1 S2 audible, GEAR HOBBER SET UP OPERATOR RESP: CTA B/L ABD: S,NT,ND BS+ve EXT/SKIN: [...] 1355 Therapy Visit Ordering Provider Duglas Subjective [id number]; Pt agreed to walk with therapy Reason [...] Recommendation PT Recommendation PT during Hospitalization;PT at [facility] PT Equipment Recommended To Be Determined [...] reach Seat alarm activated * Andres Khan, FOOD SERVICE HELPER - 07/08/2019 2:59 PM CDT Hospitalist Daily [...] No results for input(s): PH, PCO2, PO2, [id number], BICARBWB, BASEDEFICIT, BASEEXCESS in the zgep729 hours. No results found for this or [...] All plans discussed with RN and patient/patient's family/nonfarm animal caretaker. They are agreeable with plan and voiced [...] No results for input(s): PH, PCO2, PO2, H4BSHRSUJNWD, BICARBWB, BASEDEFICIT, BASEEXCESS in the lkrr777 hours. No results found for this or [...] All plans discussed with RN and patient/patient's family/nonfarm animal caretaker. They are agreeable with plan and voiced understanding. This note was dictated with [employer] medical dictation software; misspellings, punctuation errors, omitted [...] Recommendation PT Recommendation PT during Hospitalization;PT at [facility] PT Equipment Recommended To Be Determined [...] No results for input(s): PH, PCO2, PO2, [id number], BICARBWB, BASEDEFICIT, BASEEXCESS in the dnsa053 hours. No results found for this or [...] 06/28/[address] [facility] Test Date: 2019-06-28 Pat Name: IRIS GIL Department: Room: [id number] Gender: Female Shipping Support Clerk: DIONICIO : 1955 Requested By: AMANDA MOORE Order Number: [id number] Reading MD: Jonatan Aldrich Measurements Intervals [place] Rate: 70 P: 54 HI: 168 QRS: -43 QRSD: 117 T: 127 [...] - 07/05/2019 5:41 PM CDT Katie from [facility] called lead technical writer and states that the patient can return back to [place] as long as the daughter, Celina, is okay with patient returning. Per Katie, daughter had concerns about having to start owing after 20 days. Patient has 14 more covered MCR days. Will need to check with dtr on Monday about returning and to speak with [place] about her concerns before patient can return. [...] HEENT: ROSETTE, EOMI CVS: S1 S2 audible, GEAR HOBBER SET UP OPERATOR RESP: CTA B/L ABD: S,NT,ND BS+ve EXT/SKIN: [...] SCHIZOPHRENIA, HYPOTHERMC, BREAST CA Ordering Provider [facility] Subjective room 440. Pt. off floor at procedure ([employer]); will follow up as appropriate for OT txsession at later time/date * Tess Montemayor RN - 07/05/2019 1:09 PM CDT Per IDR with Lauren Bee NP, patient will most likely d/c early to mid next week. Plan is for patient to return to [facility] at d/c. Will require an ambulance at d/c. Called [facility] at [phone] and left a for [place] for callback. SW will continue to follow. * Rizwana Robles PTA - 07/05/2019 12:36 PM CDT 07/05/19 1100 Therapy Visit Ordering Provider [facility] [id number]: Per RN patient is supposed to go [...] No results for input(s): PH, PCO2, PO2, R9BLUAJVZMTC, BICARBWB, BASEDEFICIT, BASEEXCESS in the ifes041 hours. No results found for this or [...] 06/28/[address] 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 No results found for this or [...] of 06/28/[address] [facility] [facility] Test Date: 2019-06-28 Pat Name: IRIS GIL Department: Room: [place] [address] Gender: Female Shipping Support Clerk: DIONICIO : 1955 Requested By: AMANDA MOORE Order Number: [id number] Reading MD: Jonatan Aldrich Measurements Intervals [place] Rate: 70 P: 54 HI: 168 QRS: -43 QRSD: 117 T: 127 [...] ??1:27 PM??for fall??and laceration to her left adventism.?She was found to have pinpoint pupils and [...] ??1:27 PM??for fall??and laceration to her left adventism.?She was found to have pinpoint pupils and [...] were discussed with the patient and/or family/personal sales representative. The risks including pain, infection, bleeding, esophageal perforation,stroke, heart attack, , renal failure, aspiration pneumonia, hypotension, need for emergency surgery, allergic reaction, adverse arrhythmia, hypoxemia, among other risks were discussed. There islow likelihood of major complications but it is possible. Mrs. Gil told me absolutely NO! She did not [...] mcg, 75 mcg, Oral, Daily, Sharon Ortez NP ??? nitroglycerin (NITROSTAT) SL tablet [...] No results for input(s): PH, PCO2, PO2, J9PZRKPUJLGK, BICARBWB, BASEDEFICIT, BASEEXCESS in the kxij991 hours. No results found for this or [...] 06/28/19 [address] [facility] [place] Test Date: 2019-06-28 Pat Name: IRIS GIL Department: Room: [place] [address] Gender: Female Shipping Support Clerk: ND : 1955 Requested By: AMANDA MOORE Order Number: [id number] Reading MD: Jonatan Aldrich Measurements Intervals [place] Rate: 70 P: 54 HI: 168 QRS: -43 QRSD: 117 T: 127 [...] stable this date but per Katie at [facility] is accepted to come there once medically stable. They can accept with iv vanco q 12 but if that were to change will need to verify that they can accommodate. Sw will follow with Katie [facility] to update when discharge date known and update/coordinate with family at that time as well. * Rene Vogel, JoseeD, [facility] - 07/03/2019 10:44 AM CDT Vancomycin Pharmacy [...] procedure. KHALIF GUY MD 07/03/2019 * Anne Cruz RN - 07/02/2019 10:48 PM CDT Problem: [...] HEENT: ROSETTE, EOMI CVS: S1 S2 audible, GEAR HOBBER SET UP OPERATOR RESP: CTA B/L ABD: S,NT,ND BS+ve EXT/SKIN: [...] BY MANJINDER SRINIVASAN RN, AT 1215, 06/30/19. [facility] Culture Result: (AA) GROWTH OF STAPH. SPECIES [...] ELOISECOL ROLF FISHMANOSTER. PHARMACY CALLED AT [phone] FOR VERIGENE RESULTS TALKED TO AJ HAYWARD. [...] BUD WEIR MD 07/02/2019 * Deisy Sanz, FACILITIES DIRECTOR - 07/02/2019 3:25 PM CDT 07/02/19 1500 Therapy Visit Ordering Provider [facility] ROOM 44O . PT NOT SEEN THIS PM DUE TO BEING OUT OF ROOM FOR MRI. CHECKED ON PT SEVERAL TIMES TO SEE IS SHE IS BACK. WILL CHECK AT LATER TIMEAND DATE . Reason for admission acute encephalopathy, elevated troponins Relevant Comorbidities/ Personal Factors to PT PMH: HTN, HLD, breast CA, DM2, schizophrenia, PVD, dementia * Sharon Raineysydney, PIPELINE INSPECTOR - 07/02/2019 12:10 PM CDT Hospitalist Daily [...] No results for input(s): PH, PCO2, PO2, [id number], BICARBWB, BASEDEFICIT, BASEEXCESS in the [id number] hours. No results found for this or [...] 06/28/19 [address] [facility] [address] Test Date: 2019-06-28 Pat Name: IRIS GIL Department: Room: [place] [address] Gender: Female Shipping Support Clerk: DIONICIO : 1955 Requested By: AMANDA MOORE Order Number: [id number] Reading MD: Jonatan Aldrich Measurements Intervals [place] Rate: 70 P: 54 HI: 168 QRS: -43 QRSD: 117 T: 127 [...] 10:09 AM CDT followed with Ariana at [facility] today. They have received referral and reviewing. They hope to take pt if they have bed availability. Pt is not medically stable for discharge this date. Craig at [facility] will reach back out to when [...] HYPOTHERMC, BREAST CA Ordering Provider [facility] Verified Two Patient Identifiers Yes Patient consents [...] cueing;Supervision/safety;Increased time to complete;Thread RUE;Pull down in back;vat overhauler head UE Dressing Comment Pt. completed func. [...] Recommendation OT Recommendation OT during Hospitalization;OT at [facility] OT Equipment Recommended To Be Determined [...] discussion at rounds pt will likely need snf IV meds in addition pt will need SNF for therapy. Call placed to pt's son Alisson this date as pt's dtr's phone is unable to take messages at thistime. Per son he feels that [facility] SNF would be best route at [place], he confirms that pt was planned to go there recently before family decided to take home. Pt's son agreeable to referral this date. [facility] notified to screen and they state pt was already screened recently. No other needs noted at this time. Will await review from [facility]. * ONIEL Puentes - 07/01/2019 12:18 PM [...] 4 Wheeled walker Prior Function Level of [place] Independent with functional transfers;Independent with ambulation Device [...] Recommendation PT Recommendation PT during Hospitalization;PT at [facility] PT Equipment Recommended To Be Determined [...] for fall and laceration to her left adventism. She was foundto have pinpoint pupils and [...] BY MANJINDER SRINIVASAN RN, AT 1215, 06/30/19. [facility] Culture Result: GROWTH OF STAPH. SPECIES NOT STAPH. AUREUS (AA) CULTURE, BACTERIA, BLOOD Collection Time: 06/28/19 6:24 PM Result Value Ref Range Spec. Description BLOOD Special Requests: NO SPECIAL REQUEST Gram Stain Result GRAM POSITIVE COCCI RESEMBLING STREPTOCOCCUS SPECIES Gram Stain Result GRAM STAIN CALLED TO AND REPEATED BACK BY ROLF DURBIN RN, AT 1335, 06/29/19. [facility] Culture Result: (AA) METHICILLIN RESISTANT STAPHYLOCOCCUS AUREUS DETECTED BY VERIGENE NUCLEIC ACID TEST FOLLOW ISOLATION PROTOCOL. Culture Result: (AA) ENTEROCOCCUS FAECALIS DETECTED BY VERIGENE NUCLEIC ACID TEST NO RESISTANCE MARKERS DETECTED BY VERIGENE NUCLEIC ACID TEST. Culture Result: CALLED RN FOR MRSA PROTOCCOL ROLF LEE. PHARMACY CALLED AT [phone] FOR VERIGENE RESULTS TALKED TO AJ HAYWARD. [...] No results for input(s): PH, PCO2, PO2, [id number], BICARBWB, BASEDEFICIT, BASEEXCESS in the faki253 hours. No results found for this or [...] encounter of 06/28/19 ECG 12 lead Narrative [facility] [place] [address] [facility] Test Date: 2019-06-28 Pat Name: IRIS GIL Department: Room: [place] [address] Gender: Female Shipping Support Clerk: ND : 1955 Requested By: AMANDA MOORE Order Number: [id number] Reading MD: Jonatan Aldrich Measurements Intervals [place] Rate: 70 P: 54 HI: 168 QRS: -43 QRSD: 117 T: 127 [...] for fall and laceration to her left adventism. She was found to have pinpoint pupils [...] BY MANJINDER SRINIVASAN RN, AT 1215, 06/30/19. [facility] Culture Result: CULTURE REPORT TO FOLLOW. CULTURE, BACTERIA, BLOOD Collection Time: 06/28/19 6:24 PM Result Value Ref Range Spec. Description BLOOD Special Requests: NO SPECIAL REQUEST Gram Stain Result GRAM POSITIVE COCCI RESEMBLING STREPTOCOCCUS SPECIES Gram Stain Result GRAM STAIN CALLED TO AND REPEATED BACK BY ROLF DURBIN RN, AT 1335, 06/29/19. [facility] Culture Result: (AA) METHICILLIN RESISTANT STAPHYLOCOCCUS AUREUS DETECTED BY VERIGENE NUCLEIC ACID TEST FOLLOW ISOLATION PROTOCOL. Culture Result: (AA) ENTEROCOCCUS FAECALIS DETECTED BY VERIGENE NUCLEIC ACID TEST NO RESISTANCE MARKERS DETECTED BY VERIGENE NUCLEIC ACID TEST. Culture Result: CALLED RN FOR MRSA ELOISECOL ROLF LEE. PHARMACY CALLED AT [phone] FOR VERIGENE RESULTS TALKED TO AJ HAYWARD. Culture Result: (AA) GROWTH OF STAPHYLOCOCCUS AUREUS :SENSITIVITY TO FOLLOW Imaging USE ECHOCARDIOGRAM W CON Echocardiography Report Pat.Name: IRIS GIL.ID: [id number] .Date: 06/30/2019 Exam Time: 12:31:00 PM Study [...] 31.9 mm Right Ventricle 24.4 mm Major Audubon 82.7 mm MMODE TA Tricuspid Annul 12.6 [...] No results for input(s): PH, PCO2, PO2, [id number], BICARBWB, BASEDEFICIT, BASEEXCESS in the vvmv130 hours. No results found for this or [...] 06/28/19 [address] [facility] [address] Test Date: 2019-06-28 Pat Name: IRIS GIL Department: Room: [id number] Gender: Female Shipping Support Clerk: DIONICIO : 1955 Requested By: AMANDA MOORE Order Number: [id number] Reading MD: Jonatan Aldrich Measurements Intervals [place] Rate: 70 P: 54 HI: 168 QRS: -43 QRSD: 117 T: 127 [...] Thank you for the consult * Loraine Penaloaz MD - 06/29/2019 11:35 AM CDT Hospitalist [...] No results for input(s): PH, PCO2, PO2, M4USWOXNOWGO, BICARBWB, BASEDEFICIT, BASEEXCESS in the lfln184 hours. No results found for this or [...] encounter of 06/28/19 ECG 12 lead Narrative [facility] [address] Test Date: 2019-06-28 Pat Name: IRIS GIL Department: Room: [id number] Gender: Female Shipping Support Clerk: ND : 1955 Requested By: AMANDA MOORE Order Number: [id number] Reading MD: Jonatan Aldrich Measurements Intervals [place] Rate: 70 P: 54 HI: 168 QRS: -43 QRSD: 117 T: 127 [...] BATHS AT HOME Prior Function Level of [place] Needs assistance with ADLs;Needs assistance with homemaking;Needs [...] Dressing Assistance Maximal UE Dressing Deficit Thread LUE;vat overhauler head;Pull around back LE Dressing Assistance Total [...] Recommendation OT Recommendation OT during Hospitalization;OT at [facility] OT Equipment Recommended To Be Determined [...] were discussed with the patient and/or family/personal sales representative. The risks, benefits and alternatives to a STAR were discussed with the patient. The risksincluding pain, infection, bleeding, esophageal perforation,stroke, heart attack, , renal failure, aspiration pneumonia, hypotension, need for emergency surgery, allergic reaction, adverse arrhythmia, hypoxemia, among other risks were discussed. There is low likelihood any major complications will occur but it is a possibility. Questions were answered and the patient/family/personal sales representative verbalized understanding and desires to proceed. [...] for fall and laceration to her left adventism. She was found to have pin point [...] vomiting. She thinks that she is in [place] but she is not sure actually where. [...] encounter of 06/28/19 ECG 12 lead Narrative [place] [address] Test Date: 2019-06-28 Pat Name: IRIS GIL Department: Room: [place] [address] Gender: Female Shipping Support Clerk: DIONICIO : 1955 Requested By: AMANDA MOORE Order Number: [id number] Reading MD: Jonatan Aldrich Measurements Intervals [place] Rate: 70 P: 54 HI: 168 QRS: -43 QRSD: 117 T: 127 [...] present ECG was reviewed personally. Old anterior DC. NSC from ECG on . Imaging: CT [...] file Gets together: Not on file Attends anglican service: Not on file Active member of [...] No results for input(s): PH, PCO2, PO2, [id number], BICARBWB, BASEDEFICIT, BASEEXCESS in the [id number] hours. Imaging & Other Studies Examination: Chest [...] 06/28/[address] [facility] [address] Test Date: 2019-06-28 Pat Name: IRIS GIL Department: Room: [place] [address] Gender: Female Shipping Support Clerk: DIONICIO : 1955 Requested By: AMANDA MOORE Order Number: [id number] Reading MD: Jonatan Aldrich Measurements Intervals [place] Rate: 70 P: 54 HI: 168 QRS: -43 QRSD: 117 T: 127 [...] LAST4 MEALS PROVIDED . EST. CALORIE NEEDS: 1442-8931 TAVO(MSJX1.2-1.3) EST. PROTEIN NEEDS: 74-80 GM PROTEIN [...] file Gets together: Not on file Attends anglican service: Not on file Active member of [...] HEENT: ROSETTE, EOMI CVS: S1 S2 audible, GEAR HOBBER SET UP OPERATOR RESP: CTA B/L ABD:S,NT,ND BS+ve EXT/SKIN: No [...] Result: CALLED RN FOR MRSA PROTOCCOL ROLF ELE. PHARMACY CALLED AT [phone] FOR VERIGENE RESULTS TALKED TO AJ HAYWARD. [...] for fall and laceration to her left adventism. She was found to have pin point [...] encounter of 06/28/19 ECG 12 lead Narrative [place] Test Date: 2019-06-28 Pat Name: IRIS GIL Department: Room: [place] [address] Gender: Female Shipping Support Clerk: DIONICIO : 1955 Requested By: AMANDA MOORE Order Number: [id number] Reading MD: Jonatan Aldrich Measurements Intervals [place] Rate: 70 P: 54 HI: 168 QRS: -43 QRSD: 117 T: 127 [...] present ECG was reviewed personally. Old anterior DC. NSC from ECG on . Imaging: CT [...] 3:35 PM CDT Cyndy Gordon, MSN, RN, CO-BC, CNE inserted right 4 [place] single lumen Midline catheter lot # [id number] per order, assisted by none.Consent obtained, timeout, [...] 07/09/2019 3:15 PM CDT Report called to [facility] at 1516. documented in this encounter OR Notes * Brief Op Note - Khalif Guy MD - 07/05/2019 3:11 PM CDT General Procedure Op Note Procedure Note Iris Gil 07/05/2019 Procedure: left lower extremity angiogram, angioplasty left SFA, MAKAYLA and FACILITIES DIRECTOR. Pre-Op Diagnosis: PVD. Post-Op Diagnosis: same Specimen(s) [...] direct ultrasound visualization and placed a 4- [place]ian sheath into the vessel. I then placed an 0.035 Glidewire through the sheath and advanced this into the abdominal aorta. The sheath was then exchanged for a short 5-[place] Lucian sheath. Using a ContraFlush catheter and an angled [place] catheter, I cannulated the left common femoral artery. Left lower extremity arteriogram was obtained. This revealed significant distal superficial femoral disease and disease of the anterior tibial, posterior tibial, and peroneal arteries. The patient was then administered 5000 units of Heparin intravenously. After 3 minutes, I exchanged the 5-St Lucian sheath for a 5-St Lucian 45 cm Emmett sheath over the stiff 0.035 Glidewire. Using a 0.014 Spartacore wire and an angled Glidecatheter, I cannulated the left anterior tibial artery. I then exchanged the [place] catheter for a CSX-14 crossing catheter. This [...] recovery room for removal of the sheath. #[id number] /NTS * Brief Op Note - Sunita [...] Son wants patient to reside in a care home, daughter says patient is planning to live [...] moist. 1 cm laceration to the left adventism. There is periorbital ecchymoses bilaterally. There is [...] encounter of 06/28/19 ECG 12 lead Narrative [place] Test Date: 2019-06-28 Pat Name: IRIS GIL Department: Room: [id number] Gender: Female Shipping Support Clerk: DIONICIO : 1955 Requested By: AMANDA MOORE Order Number: [id number] Reading MD: Jonatan Aldrich Measurements Intervals [place] Rate: 70 P: 54 HI: 168 QRS: -43 QRSD: 117 T: 127 [...] HEAD WO CON Final Result by User, [id number] (06/27 1540) Examination: CT of the head [...] SPINE WO CON Final Result by User, [id number] (06/27 0996) Examination: CT of the cervical spine. 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 Critical care was time [...] 07/08/2019 4:51 PM CDT POCT GLUCOSE - CHNOG DOCKED DEVICE Routine 07/08/2019 11:17 AM CDT [...] 06/29/2019 8:12 PM CDT POCT GLUCOSE - CHOGN DOCKED DEVICE Routine 06/29/2019 4:02 PM CDT [...] - 99 mg/dL 07/09/2019 4:47 PM CDT [facility] ORDERS INTERFACE 07/09/2019 2:10 PM CDT Andres Khan FOOD SERVICE HELPER POCT ORDERABLES - DEVICE Final Result Performing Organization Address [facility] Phone Number [facility] ORDERS INTERFACE US * (ABNORMAL) POCT glucose (07/09/2019 11:01 AM CDT) GLUCOSE POC 239(H) 70 - 99 mg/dL 07/09/2019 11:16 AM CDT [facility] ORDERS INTERFACE 07/09/2019 11:0 1 AM CDT Andres Khan FOOD SERVICE HELPER POCT ORDERABLES - DEVICE Final Result Performing Organization Address [facility] de Phone Number [facility] ORDERS INTERFACE US * POCT glucose (07/09/2019 7:48 AM CDT) GLUCOSE POC 86 70 - 99 mg/dL 07/09/2019 7:53 AM CDT [facility] ORDERS INTERFACE 07/09/2019 7:48 AM CDT Andres Khan FOOD SERVICE HELPER POCT ORDERABLES - DEVICE Final Result Performing Organization Address [facility] Co de Phone Number [facility] ORDERS INTERFACE US * (ABNORMAL) BASIC METABOLIC PANEL (07/09/2019 7:20 AM CDT) GLUCOSE 83 70 - 99 MG/DL 07/09/2019 8:29 AM [facility] BUN 15 7 - 18 MG/DL 07/09/2019 8:29 AM [facility] CREATININE S/P/B 0.61 0.55 - 1.02 MG/DL 07/09/2019 8:29 AM [facility] SODIUM S/P/B 139 136 - 145 MMOL/L 07/09/2019 8:29 AM [facility] POTASSIUM S/P/B 3.9 3.5 - 5.1 MMOL/L 07/09/2019 8:29 AM [facility] CHLORIDE S/P/B 100 100 - 108 MMOL/L 07/09/2019 8:29 AM [facility] CO2 33.4(H) 21 - 32 MMOL/L 07/09/2019 8:29 AM [facility] CALCIUM S/P/B 8.3(L) 8.5 - 10.1 MG/DL 07/09/2019 8:29 AM [facility] ANION GAP 5.6 5 - 15 MMOL/L 07/09/2019 8:29 AM [facility] BUN CREATININE RATIO 24.8 6 - 26 07/09/2019 8:29 AM [facility] EGFR NON-AFR. AMER. >90 >90 ML/MIN/1.7 3 M2 07/09/2019 8:29 AM [facility] EGFR AFR. AMER. >90 >90 ML/MIN/1.7 3 M2 07/09/2019 8:29 AM [facility] Comment: NOTE: eGFR is not calculated for patients <18 years of age. This is an estimated GFR (CKD EPI) and should not be used for calculating drug doses. 07/09/2019 7:20 AM CDT Andres Khan FOOD SERVICE HELPER LABORATORY Final Result [facility] [address] [place] [address], [place] [phone] * (ABNORMAL) CBC W/DIFF AUTOMATED (07/09/2019 7:20 AM CDT) [facility] WBC 6.5 4.5 - 11.0 x10'3/uL 07/09/2019 8:05 AM CDT [facility] RBC 3.02(L) 4.20 - 5.40 x10'6/uL 07/09/2019 8:05 AM CDT [facility] HGB 8.7(L) 12.0 - 16.0 G/DL 07/09/2019 8:05 AM CDT [facility] HCT 27.2(L) 38.0 - 48.0 % 07/09/2019 8:05 AM CDT [facility] MCV 90.1 80.0 - 94.0 FL 07/09/2019 8:05 AM CDT [facility] MCH 28.8 27.0 - 31.0 PG 07/09/2019 8:05 AM CDT [facility] MCHC 32.0 32.0 - 36.0 G/DL 07/09/2019 8:05 AM CDT [facility] RDW 16.5(H) 11.5 - 14.5 % 07/09/2019 8:05 AM CDT [facility] PLT 299 130 - 400 x10'3/uL 07/09/2019 8:05 AM CDT [facility] MPV 9.5 9.3 - 12.2 FL 07/09/2019 8:05 AM CDT [facility] DIFFERENTIAL TYPE AUTOMATED DIFFERENTIAL 07/09/2019 8:05 AM CDT [facility] NEUTROPHILS % 68.6 % 07/09/2019 8:05 AM [facility] LYMPHOCYTES % 19.5 % 07/09/2019 8:05 AM CDT [facility] MONOCYTES % 8.0 % 07/09/2019 8:05 AM [facility] EOSINOPHILS 2.6 % 07/09/2019 8:05 AM CDT [facility] BASOPHILS 0.5 % 07/09/2019 8:05 AM CDT [facility] IMMATURE GRANS % 0.8 % 07/09/19 20 8:05 AM CDT [facility] ABS. NEUTROPHILS TOTAL 4.47 1.80 - 7.70 x10'3/uL 07/09/2019 8:05 AM CDT [facility] ABS. LYMPHOCYTES 1.27 1.00 - 4.80 x10'3/uL 07/09/2019 8:05 AM CDT [facility] ABS. MONOCYTES 0.52 0.24 - 0.86 x10'3/uL 07/09/2019 8:05 AM CDT [facility] ABS. EOSINOPHILS 0.17 0.04 - 0.36 x10'3/uL 07/09/2019 8:05 AM [facility] ABS. BASOPHILS 0.03 0.01 - 0.08 x10'3/uL 07/09/2019 8:05 AM [facility] ABS. IMMATURE GRANULOCYTES 0.05 0.00 - 0.49 x10'3/uL 07/09/2019 8:05 AM [facility] 07/09/2019 7:20 AM CDT Darah R Dodt FOOD SERVICE HELPER LABORATORY Final Result Performing Organization Address [facility] Co de Phone Number [facility] [address] [place] [address], [place] [phone] * POCT glucose (07/09/2019 4:45 AM CDT) GLUCOSE POC 83 70 - 99 mg/dL 07/09/2019 4:51 AM CDT [facility] ORDERS INTERFACE 07/09/2019 4:45 AM CDT Andres R Kari FOOD SERVICE HELPER POCT ORDERABLES - DEVICE Final Result Performing Organization Address [facility] de Phone Number [facility] ORDERS INTERFACE US * (ABNORMAL) POCT glucose (07/08/2019 8:37 PM CDT) GLUCOSE POC 144(H) 70 - 99 mg/dL 07/09/2019 2:19 AM CDT [facility] ORDERS INTERFACE 07/08/2019 8:37 PM CDT Andres R Kari FOOD SERVICE HELPER POCT ORDERABLES - DEVICE Final Result Performing Organization Address [facility] de Phone Number [facility] ORDERS INTERFACE US * (ABNORMAL) POCT glucose (07/08/2019 5:36 PM CDT) GLUCOSE POC 120(H) 70 - 99 mg/dL 07/08/2019 5:38 PM CDT [facility] ORDERS INTERFACE 07/08/2019 5:36 PM CDT Andres R Kari FOOD SERVICE HELPER POCT ORDERABLES - DEVICE Final Result Performing Organization Address [facility] Co de Phone Number [facility] ORDERS INTERFACE US * XR ABD [...] redundancy and mild distention of the colon. [facility] FOOD SERVICE HELPER GENERAL IMAGING Final Result * (ABNORMAL) POCT glucose (07/08/2019 11:17 AM CDT) GLUCOSE POC 125(H) 70 - 99 mg/dL 07/08/2019 3:31 PM CDT [facility] ORDERS INTERFACE 07/08/2019 11:1 7 AM CDT us Andres Rust Kari BARNES POCT ORDERABLES - DEVICE Final Result [facility] ORDERS INTERFACE US * (ABNORMAL) CBC W/DIFF AUTOMATED (07/08/2019 9:26 AM CDT) WBC 7.7 4.5 - 11.0 x10'3/uL 07/08/2019 9:41 AM [facility] RBC 2.75(L) 4.20 - 5.40 x10'6/uL 07/08/2019 9:41 AM CDT [facility] HGB 7.9(L) 12.0 - 16.0 G/DL 07/08/2019 9:41 AM CDT [facility] HCT 24.9(L) 38.0 - 48.0 % 07/08/2019 9:41 AM CDT [facility] MCV 90.5 81.0 - 99.0 FL 07/08/2019 9:41 AM CDT [facility] MCH 28.7 27.0 - 31.0 PG 07/08/2019 9:41 AM CDT [facility] MCHC 31.7(L) 32.0 - 36.0 G/DL 07/08/2019 9:41 AM CDT [facility] RDW 16.4(H) 11.5 - 14.5 % 07/08/2019 9:41 AM CDT [facility] PLT 250 130 - 400 x10'3/uL 07/08/2019 9:41 AM CDT [facility] MPV 9.5 9.3 - 12.2 FL 07/08/2019 9:41 AM CDT [facility] DIFFERENTIAL TYPE AUTOMATED DIFFERENTIAL 07/08/2019 9:41 AM CDT [facility] NEUTROPHILS % 72.8 % 07/08/2019 9:41 AM CDT [facility] LYMPHOCYTES % 16.3 % 07/08/2019 9:41 AM CDT [facility] MONOCYTES % 7.1 % 07/08/2019 9:41 AM CDT [facility] EOSINOPHILS 2.2 % 07/08/2019 9:41 AM CDT [facility] BASOPHILS 0.4 % 07/08/2019 9:41 AM CDT [facility] IMMATURE GRANS % 1.2 % 07/08/19 9:41 AM CDT [facility] ABS. NEUTROPHILS TOTAL 5.61 1.80 - 7.70 x10'3/uL 07/08/2019 9:41 AM CDT [facility] ABS. LYMPHOCYTES 1.26 1.00 - 4.80 x10'3/uL 07/08/2019 9:41 AM CDT [facility] ABS. MONOCYTES 0.55 0.24 - 0.86 x10'3/uL 07/08/2019 9:41 AM CDT [facility] ABS. EOSINOPHILS 0.17 0.04 - 0.36 x10'3/uL 07/08/2019 9:41 AM CDT [facility] ABS. BASOPHILS 0.03 0.01 - 0.08 x10'3/uL 07/08/2019 9:41 AM CDT [facility] ABS. IMMATURE GRANULOCYTES 0.09 0.00 - 0.49 x10'3/uL 07/08/2019 9:41 AM [facility] 07/08/2019 9:26 AM CDT Fabiola Carter MD LABORATORY Final Result [facility] [address] [place] [address], * (ABNORMAL) BASIC METABOLIC PANEL (07/08/2019 9:26 AM CDT) [facility] GLUCOSE 197(H) 70 - 99 MG/DL 07/08/2019 9:58 AM CDT [facility] BUN 18 7 - 18 MG/DL 07/08/2019 9:58 AM CDT [facility] CREATININE S/P/B 0.78 0.55 - 1.02 MG/DL 07/08/2019 9:58 AM CDT [facility] SODIUM S/P/B 135(L) 136 - 145 MMOL/L 07/08/2019 9:58 AM CDT [facility] POTASSIUM S/P/B 3.6 3.5 - 5.1 MMOL/L 07/08/2019 9:58 AM CDT [facility] CHLORIDE S/P/B 98(L) 100 - 108 MMOL/L 07/08/2019 9:58 AM CDT [facility] CO2 31.2 21 - 32 MMOL/L 07/08/2019 9:58 AM CDT [facility] CALCIUM S/P/B 8.2(L) 8.5 - 10.1 MG/DL 07/08/2019 9:58 AM CDT [facility] ANION GAP 5.8 5 - 15 MMOL/L 07/08/2019 9:58 AM CDT [facility] BUN CREATININE RATIO 23.0 6 - 26 07/08/2019 9:58 AM CDT [facility] EGFR NON-AFR. AMER. 80(L) >90 ML/MIN/1.7 3 M2 07/08/2019 9:58 AM CDT [facility] EGFR AFR. AMER. >90 >90 ML/MIN/1.7 3 M2 07/08/2019 9:58 AM CDT [facility] Comment: NOTE: eGFR is not calculated for patients <18 years of age. This is an estimated GFR (CKD EPI) and should not be used for calculating drug doses. 07/08/2019 9:26 AM CDT Fabiola Carter MD LABORATORY Final Result Performing Organization Address [facility] Co de Phone Number [facility] [address] [place] [id number], * (ABNORMAL) POCT glucose (07/08/2019 5:11 AM CDT) GLUCOSE POC 209(H) 70 - 99 mg/dL 07/08/2019 5:42 AM CDT [facility] ORDERS INTERFACE 07/08/2019 5:11 AM CDT Andres Khan APRN POCT ORDERABLES - DEVICE Final Result Performing Organization Address [facility] de Phone Number [facility] ORDERS INTERFACE US * (ABNORMAL) POCT glucose (07/07/2019 9:00 PM CDT) GLUCOSE POC 201(H) 70 - 99 mg/dL 07/07/2019 9:29 PM CDT [facility] ORDERS INTERFACE 07/07/2019 9:00 PM CDT Fabiola Carter MD POCT ORDERABLES - DEVICE Final Result Performing Organization Address [facility] Co de Phone Number [facility] ORDERS INTERFACE US * (ABNORMAL) POCT glucose (07/07/2019 4:35 PM CDT) GLUCOSE POC 181(H) 70 - 99 mg/dL 07/07/2019 4:42 PM CDT [facility] ORDERS INTERFACE 07/07/2019 4:35 PM CDT Fabiola Carter MD POCT ORDERABLES - DEVICE Final Result [facility] ORDERS INTERFACE US * (ABNORMAL) POCT glucose (07/07/2019 10:59 AM CDT) GLUCOSE POC 238(H) 70 - 99 mg/dL 07/07/2019 12:26 PM CDT [facility] ORDERS INTERFACE 07/07/2019 10:5 9 AM CDT Fabiola Carter MD POCT ORDERABLES - DEVICE Final Result Performing Organization Address [facility] Co de Phone Number [facility] ORDERS INTERFACE US * (ABNORMAL) BASIC METABOLIC PANEL (07/07/2019 10:48 AM CDT) GLUCOSE 223(H) 70 - 99 MG/DL 07/07/2019 11:52 AM CDT [facility] BUN 15 7 - 18 MG/DL 07/07/2019 11:52 AM CDT [facility] CREATININE S/P/B 0.79 0.55 - 1.02 MG/DL 07/07/2019 11:52 AM CDT [facility] SODIUM S/P/B 136 136 - 145 MMOL/L 07/07/2019 11:52 AM CDT [facility] POTASSIUM S/P/B 3.6 3.5 - 5.1 MMOL/L 07/07/2019 11:52 AM CDT [facility] CHLORIDE S/P/B 99(L) 100 - 108 MMOL/L 07/07/2019 11:52 AM CDT [facility] CO2 30.5 21 - 32 MMOL/L 07/07/2019 11:52 AM CDT [facility] CALCIUM S/P/B 8.1(L) 8.5 - 10.1 MG/DL 07/07/2019 11:52 AM CDT [facility] ANION GAP 6.5 5 - 15 MMOL/L 07/07/2019 11:52 AM CDT [facility] BUN CREATININE RATIO 19.1 6 - 07/07/2019 11:52 AM CDT [facility] EGFR NON-AFR. AMER. 79(L) >90 ML/MIN/1.7 3 M2 07/07/2019 11:52 AM CDT [facility] EGFR AFR. AMER. >90 >90 ML/MIN/1.7 3 M2 07/07/2019 11:52 AM CDT [facility] Comment: NOTE: eGFR is not calculated for patients <18 years of age. This is an estimated GFR (CKD EPI) and should not be used for calculating drug doses. 07/07/2019 10:4 8 AM CDT Lauren Bee NP LABORATORY Final Result [facility] [address] [place] [address], * (ABNORMAL) CBC W/DIFF AUTOMATED (07/07/2019 10:48 AM CDT) WBC 7.4 4.5 - 11.0 x10'3/uL 07/07/2019 12:21 PM CDT [facility] RBC 2.76(L) 4.20 - 5.40 x10'6/uL 07/07/2019 12:21 PM CDT [facility] HGB 8.0(L) 12.0 - 16.0 G/DL 07/07/2019 12:21 PM CDT [facility] HCT 24.9(L) 38.0 - 48.0 % 07/07/2019 12:21 PM CDT [facility] MCV 90.2 80.0 - 94.0 FL 07/07/2019 12:21 PM CDT [facility] MCH 29.0 27.0 - 31.0 PG 07/07/2019 12:21 PM CDT [facility] MCHC 32.1 32.0 - 36.0 G/DL 07/07/2019 12:21 PM CDT [facility] RDW 16.6(H) 11.5 - 14.5 % 07/07/2019 12:21 PM CDT [facility] PLT 221 130 - 400 x10'3/uL 07/07/2019 12:21 PM CDT [facility] MPV 10.3 9.3 - 12.2 FL 07/07/2019 12:21 PM CDT [facility] DIFFERENTIAL TYPE AUTOMATED DIFFERENTIAL 07/07/2019 12:21 PM CDT [facility] NEUTROPHILS % 72.0 % 07/07/2019 12:21 PM CDT [facility] LYMPHOCYTES % 17.0 % 07/07/2019 12:21 PM CDT [facility] MONOCYTES % 8.0 % 07/07/2019 12:21 PM CDT [facility] EOSINOPHILS 1.6 % 07/07/2019 12:21 PM CDT [facility] BASOPHILS 0.4 % 07/07/2019 12:21 PM CDT [facility] IMMATURE GRANS % 1.0 % 07/07/19 20 12:21 PM CDT [facility] ABS. NEUTROPHILS TOTAL 5.29 1.80 - 7.70 x10'3/uL 07/07/2019 12:21 PM CDT [facility] ABS. LYMPHOCYTES 1.25 1.00 - 4.80 x10'3/uL 07/07/2019 12:21 PM CDT [facility] ABS. MONOCYTES 0.59 0.24 - 0.86 x10'3/uL 07/07/2019 12:21 PM CDT [facility] ABS. EOSINOPHILS 0.12 0.04 - 0.36 x10'3/uL 07/07/2019 12:21 PM CDT [facility] ABS. BASOPHILS 0.03 0.01 - 0.08 x10'3/uL 07/07/2019 12:21 PM CDT [facility] ABS. IMMATURE GRANULOCYTES 0.07 0.00 - 0.49 x10'3/uL 07/07/2019 12:21 PM CDT [facility] 07/07/2019 10:4 8 AM CDT Lauren Bee NP LABORATORY Final Result [facility] [address] [place] [address], [place] [phone] * (ABNORMAL) POCT glucose (07/07/2019 5:47 AM CDT) GLUCOSE POC 271(H) 70 - 99 mg/dL 07/07/2019 2:43 PM CDT [facility] ORDERS INTERFACE 07/07/2019 5:47 AM CDT Fabiola Cartre MD POCT ORDERABLES - DEVICE Final Result [facility] ORDERS INTERFACE US * (ABNORMAL) POCT glucose (07/06/2019 11:43 PM CDT) GLUCOSE POC 159(H) 70 - 99 mg/dL 07/07/2019 12:30 AM CDT [facility] ORDERS INTERFACE 07/06/2019 11:4 3 PM CDT Lauren L Rohit PIPELINE INSPECTOR POCT ORDERABLES - DEVICE Debbie l Result [facility] ORDERS INTERFACE US * POCT glucose (07/06/2019 10:10 PM CDT) GLUCOSE POC 97 70 - 99 mg/dL 07/06/2019 10:32 PM CDT [facility] ORDERS INTERFACE 07/06/2019 10:1 0 PM CDT Lauren Bee PIPELINE INSPECTOR POCT ORDERABLES - DEVICE Debbie l Result [facility] ORDERS INTERFACE US * POCT glucose (07/06/2019 9:22 PM CDT) GLUCOSE POC 70 70 - 99 mg/dL 07/06/2019 10:32 PM CDT [facility] ORDERS INTERFACE 07/06/2019 9:22 PM CDT Lauren Bee PIPELINE INSPECTOR POCT ORDERABLES - DEVICE Debbie l Result [facility] ORDERS INTERFACE US * (ABNORMAL) POCT glucose (07/06/2019 9:03 PM CDT) GLUCOSE POC 54(L) 70 - 99 mg/dL 07/06/2019 10:32 PM CDT [facility] ORDERS INTERFACE 07/06/2019 9:03 PM CDT Lauren Bee PIPELINE INSPECTOR POCT ORDERABLES - DEVICE Debbie l Result [facility] ORDERS INTERFACE US * (ABNORMAL) POCT glucose (07/06/2019 8:30 PM CDT) GLUCOSE POC 49(L) 70 - 99 mg/dL 07/06/2019 10:32 PM CDT [facility] ORDERS INTERFACE 07/06/2019 8:30 PM CDT Lauren Bee PIPELINE INSPECTOR POCT ORDERABLES - DEVICE Debbie l Result Performing Organization Address [facility]/ZIP Co de Phone Number [facility] ORDERS INTERFACE US * (ABNORMAL) POCT glucose (07/06/2019 5:23 PM CDT) GLUCOSE POC 146(H) 70 - 99 mg/dL 07/06/2019 5:26 PM CDT [facility] ORDERS INTERFACE 07/06/2019 5:23 PM CDT Lauren Bee PIPELINE INSPECTOR POCT ORDERABLES - DEVICE Debbie l Result Performing Organization Address [facility] Co de Phone Number [facility] ORDERS INTERFACE US * (ABNORMAL) BASIC METABOLIC PANEL (07/06/2019 12:08 PM CDT) GLUCOSE 251(H) 70 - 99 MG/DL 07/06/2019 1:15 PM CDT [facility] BUN 15 7 - 18 MG/DL 07/06/2019 1:15 PM CDT [facility] CREATININE S/P/B 0.84 0.55 - 1.02 MG/DL 07/06/2019 1:15 PM CDT [facility] SODIUM S/P/B 133(L) 136 - 145 MMOL/L 07/06/2019 1:15 PM CDT [facility] POTASSIUM S/P/B 3.7 3.5 - 5.1 MMOL/L 07/06/2019 1:15 PM CDT [facility] CHLORIDE S/P/B 98(L) 100 - 108 MMOL/L 07/06/2019 1:15 PM CDT [facility] CO2 28.5 21 - 32 MMOL/L 07/06/2019 1:15 PM CDT [facility] CALCIUM S/P/B 8.2(L) 8.5 - 10.1 MG/DL 07/06/2019 1:15 PM CDT [facility] ANION GAP 6.5 5 - 15 MMOL/L 07/06/2019 1:15 PM CDT [facility] BUN CREATININE RATIO 17.9 6 - 26 07/06/2019 1:15 PM CDT [facility] EGFR NON-AFR. AMER. 73(L) >90 ML/MIN/1.7 3 M2 07/06/2019 1:15 PM CDT [facility] EGFR AFR. AMER. 85(L) >90 ML/MIN/1.7 3 M2 07/06/2019 1:15 PM CDT [facility] Comment: NOTE: eGFR is not calculated for patients <18 years of age. This is an estimated GFR (CKD EPI) and should not be used for calculating drug doses. 07/06/2019 12:0 8 PM CDT us Khalif Guy MD LABORATORY Final Result [facility] [address] [place] [address], [place] [phone] * (ABNORMAL) CBC W/DIFF AUTOMATED (07/06/2019 12:08 PM CDT) WBC 7.2 4.5 - 11.0 x10'3/uL 07/06/2019 12:54 PM CDT [facility] RBC 2.93(L) 4.20 - 5.40 x10'6/uL 07/06/2019 12:54 PM CDT [facility] HGB 8.5(L) 12.0 - 16.0 G/DL 07/06/2019 12:54 PM CDT [facility] HCT 26.6(L) 38.0 - 48.0 % 07/06/2019 12:54 PM CDT [facility] MCV 90.8 80.0 - 94.0 FL 07/06/2019 12:54 PM CDT [facility] MCH 29.0 27.0 - 31.0 PG 07/06/2019 12:54 PM CDT [facility] MCHC 32.0 32.0 - 36.0 G/DL 07/06/2019 12:54 PM CDT [facility] RDW 17.0(H) 11.5 - 14.5 % 07/06/2019 12:54 PM CDT [facility] PLT 208 130 - 400 x10'3/uL 07/06/2019 12:54 PM CDT [facility] MPV 10.4 9.3 - 12.2 FL 07/06/2019 12:54 PM CDT [facility] DIFFERENTIAL TYPE AUTOMATED DIFFERENTIAL 07/06/2019 12:54 PM CDT [facility] NEUTROPHILS % 73.7 % 07/06/2019 12:54 PM CDT [facility] LYMPHOCYTES % 17.1 % 07/06/2019 12:54 PM CDT [facility] MONOCYTES % 6.5 % 07/06/2019 12:54 PM CDT [facility] EOSINOPHILS 1.9 % 07/06/2019 12:54 PM CDT [facility] BASOPHILS 0.4 % 07/06/2019 12:54 PM CDT [facility] IMMATURE GRANS % 0.4 % 07/06/19 20 12:54 PM CDT [facility] ABS. NEUTROPHILS TOTAL 5.28 1.80 - 7.70 x10'3/uL 07/06/2019 12:54 PM CDT [facility] ABS. LYMPHOCYTES 1.23 1.00 - 4.80 x10'3/uL 07/06/2019 12:54 PM CDT [facility] ABS. MONOCYTES 0.47 0.24 - 0.86 x10'3/uL 07/06/2019 12:54 PM CDT [facility] ABS. EOSINOPHILS 0.14 0.04 - 0.36 x10'3/uL 07/06/2019 12:54 PM CDT [facility] ABS. BASOPHILS 0.03 0.01 - 0.08 x10'3/uL 07/06/2019 12:54 PM CDT [facility] ABS. IMMATURE GRANULOCYTES 0.03 0.00 - 0.49 x10'3/uL 07/06/2019 12:54 PM CDT [facility] 07/06/2019 12:0 8 PM CDT Khalif Guy MD LABORATORY Final Result [facility] [address] [id number], [place] [phone] * (ABNORMAL) POCT glucose (07/06/2019 10:57 AM CDT) GLUCOSE POC 332(H) 70 - 99 mg/dL 07/06/2019 11:35 AM CDT [facility] LAB ORDERS INTERFACE 07/06/2019 10:5 7 AM CDT Lauren Bee NP POCT ORDERABLES - DEVICE Debbie l Result [facility] LAB ORDERS INTERFACE US * (ABNORMAL) POCT glucose (07/06/2019 5:44 AM CDT) GLUCOSE POC 212(H) 70 - 99 mg/dL 07/06/2019 5:52 AM CDT [facility] LAB ORDERS INTERFACE 07/06/2019 5:44 AM CDT Lauren Bee PIPELINE INSPECTOR POCT ORDERABLES - DEVICE Debbie l Result Performing Organization Address City/[facility]/ZIP Co de Phone Number [facility] LAB ORDERS INTERFACE US * (ABNORMAL) POCT glucose (07/05/2019 8:25 PM CDT) GLUCOSE POC 154(H) 70 - 99 mg/dL 07/06/2019 1:24 AM CDT [facility] LAB ORDERS INTERFACE 07/05/2019 8:25 PM CDT Lauren Bee PIPELINE INSPECTOR POCT ORDERABLES - DEVICE Debbie l Result Performing Organization Address [facility] Co de Phone Number [facility] LAB ORDERS INTERFACE US * (ABNORMAL) POCT glucose (07/05/2019 4:47 PM CDT) GLUCOSE POC 196(H) 70 - 99 mg/dL 07/05/2019 4:55 PM CDT [facility] LAB ORDERS INTERFACE 07/05/2019 4:47 PM CDT Lauren Bee PIPELINE INSPECTOR POCT ORDERABLES - DEVICE Debbie l Result Performing Organization Address [facility] Phone Number [facility] LAB ORDERS INTERFACE US * (ABNORMAL) POCT ACTIVATED CLOTTING TIME - ISTAT DOCKED DEVICE (07/05/2019 2:44 PM CDT) ACTIVATED CLOTTING TIME (ACT) 179(H) 74 - 125 SEC 07/05/2019 2:50 PM CDT [facility] LAB ORDERS INTERFACE TECH CODE 121,731 07/05/2019 2:50 PM CDT [facility] LAB ORDERS INTERFACE 07/05/2019 2:44 PM CDT Lauren Bee PIPELINE INSPECTOR POCT ORDERABLES - DEVICE Debbie l Result Performing Organization Address [facility] Co de Phone Number [facility] LAB ORDERS INTERFACE US * (ABNORMAL) POCT ACTIVATED CLOTTING TIME - ISTAT DOCKED DEVICE (07/05/2019 2:22 PM CDT) ACTIVATED CLOTTING TIME (ACT) 235(H) 74 - 125 SEC 07/05/2019 2:29 PM CDT [facility] LAB ORDERS INTERFACE TECH CODE 121,731 07/05/2019 2:29 PM CDT [facility] LAB ORDERS INTERFACE 07/05/2019 2:22 PM CDT Lauren Bee NP POCT ORDERABLES - DEVICE Debbie l Result Performing Organization Address [facility] de Phone Number [facility] LAB ORDERS INTERFACE US * (ABNORMAL) POCT glucose (07/05/2019 11:35 AM CDT) GLUCOSE POC 282(H) 70 - 99 mg/dL 07/05/2019 12:27 PM CDT [facility] LAB ORDERS INTERFACE 07/05/2019 11:3 5 AM CDT Lauren Bee NP POCT ORDERABLES - DEVICE Debbie l Result Performing Organization Address [facility] de Phone Number [facility] LAB ORDERS INTERFACE US * (ABNORMAL) POCT glucose (07/05/2019 6:34 AM CDT) GLUCOSE POC 320(H) 70 - 99 mg/dL 07/05/2019 6:37 AM CDT [facility] LAB ORDERS INTERFACE 07/05/2019 6:34 AM CDT Lauren Bee NP POCT ORDERABLES - DEVICE Debbie l Result Performing Organization Address [facility] de Phone Number [facility] LAB ORDERS INTERFACE US * PTT, PARTIAL THROMBOPLASTIN TIME (07/05/2019 5:25 AM CDT) PTT 33.1 25.5 - 37.6 SEC 07/05/2019 6:50 AM CDT [facility] 07/05/2019 5:25 AM CDT Sharon Ortez PIPELINE INSPECTOR LABORATORY Final Resul t Performing Organization [facility]ZIP Co de Phone Number [facility] [address] [place] [address], * (ABNORMAL) PROTIME/INR, VENOUS (07/05/2019 5:25 AM CDT) PROTIME 12.5(H) 9.6 - 12.2 SEC 07/05/2019 6:50 AM CDT [facility] INR 1.1 07/05/2019 6:50 AM CDT [facility] Comment: Recommended INR Therapeutic Goals: ??2.0-3.0 Routine Therapy ??2.5-3.5 Mechanical Prosthetic Valves (High Risk) ??3.0-4.0 Acute DC (to prevent Systemic Embolism) The INR is used only for patients on stable oral anticoagulant therapy. It makes no significant contribution to the diagnosis or treatment of patients whose Protime is prolonged for other reasons. 07/05/2019 5:25 AM CDT Sharon Ortez PIPELINE INSPECTOR LABORATORY Final Resul t Performing Organization Address [facility] Co de Phone Number [facility] [address] [place] [address], * (ABNORMAL) BASIC METABOLIC PANEL (07/05/2019 5:25 AM CDT) GLUCOSE 248(H) 70 - 99 MG/DL 07/05/2019 7:16 AM CDT [facility] BUN 15 7 - 18 MG/DL 07/05/2019 7:16 AM CDT [facility] CREATININE S/P/B 0.76 0.55 - 1.02 MG/DL 07/05/2019 7:16 AM CDT [facility] SODIUM S/P/B 135(L) 136 - 145 MMOL/L 07/05/2019 7:16 AM CDT [facility] POTASSIUM S/P/B 3.7 3.5 - 5.1 MMOL/L 07/05/2019 7:16 AM CDT [facility] CHLORIDE S/P/B 98(L) 100 - 108 MMOL/L 07/05/2019 7:16 AM CDT [facility] CO2 31.4 21 - 32 MMOL/L 07/05/2019 7:16 AM CDT [facility] CALCIUM S/P/B 8.7 8.5 - 10.1 MG/DL 07/05/2019 7:16 AM CDT [facility] ANION GAP 5.6 5 - 15 MMOL/L 07/05/2019 7:16 AM CDT [facility] BUN CREATININE RATIO 19.8 6 - 26 07/05/2019 7:16 AM CDT [facility] EGFR NON-AFR. AMER. 83(L) >90 ML/MIN/1.7 3 M2 07/05/2019 7:16 AM CDT [facility] EGFR AFR. AMER. >90 >90 ML/MIN/1.7 3 M2 07/05/2019 7:16 AM CDT [facility] Comment: NOTE: eGFR is not calculated for patients <18 years of age. This is an estimated GFR (CKD EPI) and should not be used for calculating drug doses. 07/05/2019 5:25 AM CDT us Sunita Nails MD LABORATORY Final Result [facility] [address] [place] [address], [place] [phone] * (ABNORMAL) CBC W/DIFF AUTOMATED (07/05/2019 5:25 AM CDT) WBC 6.9 4.5 - 11.0 x10'3/uL 07/05/2019 6:35 AM CDT [facility] RBC 3.20(L) 4.20 - 5.40 x10'6/uL 07/05/2019 6:35 AM CDT [facility] HGB 9.3(L) 12.0 - 16.0 G/DL 07/05/2019 6:35 AM CDT [facility] HCT 28.7(L) 38.0 - 48.0 % 07/05/2019 6:35 AM CDT [facility] MCV 89.7 81.0 - 99.0 FL 07/05/2019 6:35 AM CDT [facility] MCH 29.1 27.0 - 31.0 PG 07/05/2019 6:35 AM CDT [facility] MCHC 32.4 32.0 - 36.0 G/DL 07/05/2019 6:35 AM T [facility] RDW 16.6(H) 11.5 - 14.5 % 07/05/2019 6:35 AM CDT [facility] PLT 190 130 - 400 x10'3/uL 07/05/2019 6:35 AM CDT [facility] MPV 10.8 9.3 - 12.2 FL 07/05/2019 6:35 AM CDT [facility] DIFFERENTIAL TYPE AUTOMATED DIFFERENTIAL 07/05/2019 6:35 AM CDT [facility] NEUTROPHILS % 76.1 % 07/05/2019 6:35 AM CDT [facility] LYMPHOCYTES % 13.7 % 07/05/2019 6:35 AM CDT [facility] MONOCYTES % 7.3 % 07/05/2019 6:35 AM CDT [facility] EOSINOPHILS 2.2 % 07/05/2019 6:35 AM CDT [facility] BASOPHILS 0.4 % 07/05/2019 6:35 AM CDT [facility] IMMATURE GRANS % 0.3 % 07/05/19 20 6:35 AM CDT [facility] ABS. NEUTROPHILS TOTAL 5.21 1.80 - 7.70 x10'3/uL 07/05/2019 6:35 AM CDT [facility] ABS. LYMPHOCYTES 0.94(L) 1.00 - 4.80 x10'3/uL 07/05/2019 6:35 AM CDT [facility] ABS. MONOCYTES 0.50 0.24 - 0.86 x10'3/uL 07/05/2019 6:35 AM CDT [facility] ABS. EOSINOPHILS 0.15 0.04 - 0.36 x10'3/uL 07/05/2019 6:35 AM CDT [facility] ABS. BASOPHILS 0.03 0.01 - 0.08 x10'3/uL 07/05/2019 6:35 AM CDT [facility] ABS. IMMATURE GRANULOCYTES 0.02 0.00 - 0.49 x10'3/uL 07/05/2019 6:35 AM CDT [facility] 07/05/2019 5:25 AM CDT us Sunita Nails MD LABORATORY Final Result [facility] [address] [place] [address], * (ABNORMAL) POCT glucose (07/05/2019 4:06 AM CDT) GLUCOSE POC 249(H) 70 - 99 mg/dL 07/05/2019 4:09 AM CDT [facility] LAB ORDERS INTERFACE 07/05/2019 4:06 AM CDT Sharon Ortez PIPELINE INSPECTOR POCT ORDERABLES - DEVICE Fi nal Result Performing Organization Address [facility] de Phone Number [facility] LAB ORDERS INTERFACE US * (ABNORMAL) POCT glucose (07/04/2019 10:23 PM CDT) GLUCOSE POC 229(H) 70 - 99 mg/dL 07/04/2019 10:25 PM CDT [facility] ORDERS INTERFACE 07/04/2019 10:2 3 PM CDT Sharon Brigidolt PIPELINE INSPECTOR POCT ORDERABLES - DEVICE Fi nal Result Performing Organization Address [facility] Phone Number [facility] LAB ORDERS INTERFACE US * CK (CPK) (07/04/2019 10:11 PM CDT) CPK 57 21 - 215 U/L 07/04/2019 10:53 PM CDT [facility] 07/04/2019 10:1 1 PM CDT us Sunita Nails MD LABORATORY Final Result Performing Organization Address [facility] de Phone Number [facility] [address] [place] [id number], [place] [phone] * (ABNORMAL) POCT glucose (07/04/2019 8:49 PM CDT) GLUCOSE POC 226(H) 70 - 99 mg/dL 07/04/2019 8:51 PM CDT [facility] LAB ORDERS INTERFACE 07/04/2019 8:49 PM CDT us Sharon Ortez PIPELINE INSPECTOR POCT ORDERABLES - DEVICE Fi nal Result Performing Organization Address City/[facility] Co de Phone Number [facility] LAB ORDERS INTERFACE US * (ABNORMAL) POCT glucose (07/04/2019 3:47 PM CDT) GLUCOSE POC 184(H) 70 - 99 mg/dL 07/04/2019 4:16 PM CDT [facility] LAB ORDERS INTERFACE 07/04/2019 3:47 PM CDT us Sharon Ortez PIPELINE INSPECTOR POCT ORDERABLES - DEVICE Fi nal Result [facility] ORDERS INTERFACE US * USE TRANSESOPHAGEAL ECHO (07/04/2019 2:15 PM CDT) Anatomical Region Laterality Modality Cardiac Outside Sales Manager 07/04/2019 12:5 6 PM CDT Narrative 07/04/2019 4:33 PM CDT ?STAR Report Pat.Name: ??IRIS GIL ? Pat.ID: ?[id number] ? St.Date: ?? 07/04/2019 ? Exam Time: [...] 07/04/2019 STAR Report Pat.Name: LOUISE JARADJESSICA Ribeiro.ID: [id number] St.Date: 07/04/2019 Exam Time: 12:56:00 PM Study [...] (ABNORMAL) POCT glucose (07/04/2019 11:46 AM CDT) [facility] GLUCOSE POC 150(H) 70 - 99 mg/dL 07/04/2019 11:51 AM CDT [facility] ORDERS INTERFACE 07/04/2019 11:4 6 AM CDT Sharon Ortez NP POCT ORDERABLES - DEVICE Fi nal Result [facility] ORDERS INTERFACE US * (ABNORMAL) COMPREHENSIVE METABOLIC PANEL (07/04/2019 6:37 AM CDT) [facility] GLUCOSE 137(H) 70 - 99 MG/DL 07/04/2019 7:56 AM CDT [facility] BUN 13 7 - 18 MG/DL 07/04/2019 7:56 AM CDT [facility] CREATININE S/P/B 0.85 0.55 - 1.02 MG/DL 07/04/2019 7:56 AM CDT [facility] SODIUM S/P/B 136 136 - 145 MMOL/L 07/04/2019 7:56 AM CDT [facility] POTASSIUM S/P/B 3.7 3.5 - 5.1 MMOL/L 07/04/2019 7:56 AM CDT [facility] CHLORIDE S/P/B 100 100 - 108 MMOL/L 07/04/2019 7:56 AM CDT [facility] CO2 31.8 21 - 32 MMOL/L 07/04/2019 7:56 AM CDT [facility] CALCIUM S/P/B 8.9 8.5 - 10.1 MG/DL 07/04/2019 7:56 AM CDT [facility] BILIRUBIN TOTAL S/P/B 0.5 0.2 - 1.2 MG/DL 07/04/2019 7:56 AM CDT [facility] Comment: THIS ASSAY IS NOT RECOMMENDED FOR PATIENTS UNDERGOING TREATMENT WITH ELTROMBOPAG DUE TO THE POTENTIAL FOR FALSELY ELEVATED RESULTS. TOTAL PROTEIN S/P/B 7.0 6.4 - 8.2 G/DL 07/04/2019 7:56 AM CDT [facility] ALBUMIN S/P/B 2.2(L) 3.4 - 5.0 G/DL 07/04/2019 7:56 AM CDT [facility] AST 24 15 - 37 U/L 07/04/2019 7:56 AM CDT [facility] ALT 22 14 - 55 U/L 07/04/2019 7:56 AM CDT [facility] ALKALINE PHOSPHATASE S/P/B 40(L) 50 - 136 U/L 07/04/2019 7:56 AM CDT [facility] ANION GAP 4.2(L) 5 - 15 MMOL/L 07/04/2019 7:56 AM CDT [facility] BUN CREATININE RATIO 15.2 6 - 26 07/04/2019 7:56 AM CDT [facility] A/G RATIO 0.5(L) 1.0 - 2.0 RATIO 07/04/2019 7:56 AM CDT [facility] EGFR NON-AFR. AMER. 72(L) >90 ML/MIN/1.7 3 M2 07/04/2019 7:56 AM CDT [facility] EGFR AFR. AMER. 84(L) >90 ML/MIN/1.7 3 M2 07/04/2019 7:56 AM CDT [facility] Comment: NOTE: eGFR is not calculated for patients <18 years of age. This is an estimated GFR (CKD EPI) and should not be used for calculating drug doses. 07/04/2019 6:37 AM CDT us Sharon Ortez NP LABORATORY Final Resul t [facility] [address] [place] [address], [place] [phone] * (ABNORMAL) CBC W/DIFF AUTOMATED (07/04/2019 6:37 AM CDT) WBC 5.8 4.5 - 11.0 x10'3/uL 07/04/2019 7:17 AM CDT [facility] RBC 3.15(L) 4.20 - 5.40 x10'6/uL 07/04/2019 7:17 AM CDT [facility] HGB 9.0(L) 12.0 - 16.0 G/DL 07/04/2019 7:17 AM CDT [facility] HCT 27.8(L) 38.0 - 48.0 % 07/04/2019 7:17 AM CDT [facility] MCV 88.3 81.0 - 99.0 FL 07/04/2019 7:17 AM CDT [facility] MCH 28.6 27.0 - 31.0 PG 07/04/2019 7:17 AM CDT [facility] MCHC 32.4 32.0 - 36.0 G/DL 07/04/2019 7:17 AM CDT [facility] RDW 17.0(H) 11.5 - 14.5 % 07/04/2019 7:17 AM CDT [facility] PLT 161 130 - 400 x10'3/uL 07/04/2019 7:17 AM CDT [facility] MPV 10.4 9.3 - 12.2 FL 07/04/2019 7:17 AM CDT [facility] DIFFERENTIAL TYPE AUTOMATED DIFFERENTIAL 07/04/2019 7:17 AM CDT [facility] NEUTROPHILS % 67.5 % 07/04/2019 7:17 AM CDT [facility] LYMPHOCYTES % 19.6 % 07/04/2019 7:17 AM CDT [facility] MONOCYTES % 9.7 % 07/04/2019 7:17 AM CDT [facility] EOSINOPHILS 2.4 % 07/04/2019 7:17 AM CDT [facility] BASOPHILS 0.3 % 07/04/2019 7:17 AM CDT [facility] IMMATURE GRANS % 0.5 % 07/04/19 20 7:17 AM CDT [facility] ABS. NEUTROPHILS TOTAL 3.89 1.80 - 7.70 x10'3/uL 07/04/2019 7:17 AM CDT [facility] ABS. LYMPHOCYTES 1.13 1.00 - 4.80 x10'3/uL 07/04/2019 7:17 AM CDT [facility] ABS. MONOCYTES 0.56 0.24 - 0.86 x10'3/uL 07/04/2019 7:17 AM CDT [facility] ABS. EOSINOPHILS 0.14 0.04 - 0.36 x10'3/uL 07/04/2019 7:17 AM CDT [facility] ABS. BASOPHILS 0.02 0.01 - 0.08 x10'3/uL 07/04/2019 7:17 AM CDT [facility] ABS. IMMATURE GRANULOCYTES 0.03 0.00 - 0.49 x10'3/uL 07/04/2019 7:17 AM CDT [facility] 07/04/2019 6:37 AM CDT Loraine Penaloza MD LABORATORY Final Result [facility] [address] [place] [id number], * (ABNORMAL) POCT glucose (07/04/2019 6:09 AM CDT) GLUCOSE POC 161(H) 70 - 99 mg/dL 07/04/2019 6:21 AM CDT [facility] LAB ORDERS INTERFACE 07/04/2019 6:09 AM CDT us Sharon Ortez NP POCT ORDERABLES - DEVICE Fi nal Result [facility] LAB ORDERS INTERFACE US * (ABNORMAL) POCT glucose (07/03/2019 9:00 PM CDT) GLUCOSE POC 276(H) 70 - 99 mg/dL 07/04/2019 11:51 AM CDT [facility] LAB ORDERS INTERFACE 07/03/2019 9:00 PM CDT us Sharon Ortez PIPELINE INSPECTOR POCT ORDERABLES - DEVICE Fi nal Result Performing Organization Address City/[facility] Co de Phone Number [facility] LAB ORDERS INTERFACE US * (ABNORMAL) POCT glucose (07/03/2019 6:04 PM CDT) GLUCOSE POC 307(H) 70 - 99 mg/dL 07/03/2019 6:06 PM CDT [facility] LAB ORDERS INTERFACE 07/03/2019 6:04 PM CDT us Sharon Ortez PIPELINE INSPECTOR POCT ORDERABLES - DEVICE Fi nal Result Performing Organization Address [facility] Phone Number [facility] LAB ORDERS INTERFACE US * Transfuse RBC (07/03/2019 5:03 PM CDT) us Sharon Ortez NP NURSING TREATMENT ORDERABLE S - BLOOD ADMIN Final Result * Transfuse RBC (07/03/2019 5:03 PM CDT) Sharon Ortez PIPELINE INSPECTOR NURSING TREATMENT ORDERABLE S - BLOOD ADMIN Final Result * CULTURE, BACTERIA, BLOOD (07/03/2019 1:49 PM CDT) SPEC DESCRIPTION BLOOD-PEDIA TRIC VOLUME 07/03/2019 12:43 PM CDT [facility] SPECIAL REQUESTS NO SPECIAL REQUEST 07/03/2019 12:43 PM CDT [facility] CULTURE RESULT NO GROWTH 5 DAYS 07/08/2019 11:57 AM CDT [facility] BLOOD SPECIMEN OBTAINED FOR BLOOD CULTURE / Unknown 07/03/2019 1:49 PM CDT 07/03/2019 1:55 PM CDT us Bud Weir MD MICROBIOLOGY - GENERAL ORDERABLE S Final Result Performing Organization Address City/[facility]/ZIP Co de Phone Number [facility] [address] [place] [address], [place] [phone] * CULTURE, BACTERIA, BLOOD (07/03/2019 1:49 PM CDT) SPEC DESCRIPTION BLOOD-PEDIA TRIC VOLUME 07/03/2019 12:43 PM CDT [facility] SPECIAL REQUESTS NO SPECIAL REQUEST 07/03/2019 12:43 PM CDT [facility] CULTURE RESULT NO GROWTH 5 DAYS 07/08/2019 11:57 AM CDT [facility] BLOOD SPECIMEN OBTAINED FOR BLOOD CULTURE / Unknown 07/03/2019 1:49 PM CDT 07/03/2019 1:55 PM CDT Bud Weir MD MICROBIOLOGY - GENERAL ORDERABLE S Final Result [facility] [address] [place] [address], [place] [phone] * TYPE & SCREEN (07/03/2019 12:10 PM CDT) UNITS ORDERED 1 07/03/2019 1:10 PM CDT [facility] ABO/RH O POSITIVE 07/03/2019 1:10 PM CDT [facility] ANTIBODY SCREEN NEGATIVE 0 1:10 PM CDT [facility] SAMPLE EXPIRATION 07/06/2019,2359 07/03/2019 1:10 PM CDT [facility] BLOOD UNIT NUMBER [id number] 07/03/2019 1:10 PM CDT [facility] PRODUCT: PC LEUKOPOOR 07/03/2019 1:10 PM CDT [facility] UNIT DIVISION 00 07/03/2019 1:10 PM CDT [facility] BLOOD UNIT STATUS TRANSFUSED,FINAL 07/04/2019 10:16 AM CDT [facility] ISSUE DATE/TIME [id number] 10:16 AM CDT [facility] PRODUCT CODE [id number] 07/04/2019 10:16 AM CDT [facility] ABO/RH Unit O POS 07/04/2019 10:16 AM CDT [facility] ABO/RH UNIT ISBT CODE 5100 07/04/2019 10:16 AM CDT [facility] BLOOD UNIT EXPIRATION DATE [id number] 07/04/2019 10:16 AM CDT [facility] TRANSFUSION STATUS OK TO TRANSFUSE 07/03/2019 1:10 PM CDT [facility] CROSSMATCH COMPATIBLE-EXM 07/03/2019 1:10 PM CDT [facility] 07/03/2019 12:1 0 PM CDT Sharon Ortez NP BLOOD BANK TEST ORDERABLES Final Result [facility] [address] [place] [address], [place] [phone] * (ABNORMAL) BASIC METABOLIC PANEL (07/03/2019 7:51 AM CDT) [facility] GLUCOSE 172(H) 70 - 99 MG/DL 07/03/2019 12:13 PM CDT [facility] BUN 15 7 - 18 MG/DL 07/03/2019 12:13 PM CDT [facility] CREATININE S/P/B 0.91 0.55 - 1.02 MG/DL 07/03/2019 12:13 PM CDT [facility] SODIUM S/P/B 133(L) 136 - 145 MMOL/L 07/03/2019 12:13 PM CDT [facility] POTASSIUM S/P/B 3.6 3.5 - 5.1 MMOL/L 07/03/2019 12:13 PM CDT [facility] CHLORIDE S/P/B 99(L) 100 - 108 MMOL/L 07/03/2019 12:13 PM CDT [facility] CO2 31.1 21 - 32 MMOL/L 07/03/2019 12:13 PM CDT [facility] CALCIUM S/P/B 8.7 8.5 - 10.1 MG/DL 07/03/2019 12:13 PM CDT [facility] ANION GAP 2.9(L) 5 - 15 MMOL/L 07/03/2019 12:13 PM CDT [facility] BUN CREATININE RATIO 16.4 6 - 26 07/03/2019 12:13 PM CDT [facility] EGFR NON-AFR. AMER. 67(L) >90 ML/MIN/1.7 3 M2 07/03/2019 12:13 PM CDT [facility] EGFR AFR. AMER. 77(L) >90 ML/MIN/1.7 3 M2 07/03/2019 12:13 PM CDT [facility] Comment: NOTE: eGFR is not calculated for patients <18 years of age. This is an estimated GFR (CKD EPI) and should not be used for calculating drug doses. 07/03/2019 7:51 AM CDT us Loraine Penaloza MD LABORATORY Final Result [facility] [address] [place] [address], [place] [phone] * RETICULOCYTE CT, AUTO (07/03/2019 7:51 AM CDT) RETICULOCYTE COUNT 1.8 0.8 - 2.1 % 07/03/2019 8:58 AM CDT [facility] ABSOLUTE RETICULOCYTE 0.03 0.02 - 0.10 x10'6/uL 07/03/2019 8:58 AM CDT [facility] IMMATURE RETIC FRACTION 12.5 3.0 - 15.9 % 07/03/2019 8:58 AM CDT [facility] RETIC HGB 33.8 28.0 - 35.0 PG 07/03/2019 8:58 AM CDT [facility] 07/03/2019 7:51 AM CDT [facility] Final Resul t Performing Organization Address City/[facility]/ZIP Co de Phone Number [facility] [address] [place] [address], * (ABNORMAL) FERRITIN (07/03/2019 7:51 AM CDT) FERRITIN 517.7(H) 8.0 - 388.0 NG/ML 07/03/2019 11:58 AM CDT [facility] 07/03/2019 7:51 AM CDT [facility] LABORATORY Final Resul t [facility] [address] [place] [address], [place] [phone] * (ABNORMAL) IRON SAT PANEL (IRON,IBC,%SAT) (07/03/2019 7:51 AM CDT) IRON 57 50.0 - 170.0 MCG/DL 07/03/2019 12:13 PM CDT [facility] IRON BINDING CAPACITY 322 250 - 450 MCG/DL 07/03/2019 12:13 PM CDT [facility] IRON SATURATION 18(L) 20 - 55 % 0 12:13 PM CDT [facility] 07/03/2019 7:51 AM CDT Sharon Ortez NP LABORATORY Final Resul t [facility] [address] [place] [address], [place] [phone] * (ABNORMAL) VITAMIN B-12 (07/03/2019 7:51 AM CDT) VITAMIN B12 S/P/B 1,534(H) 254 - 1,320 PG/ML 07/03/2019 11:58 AM CDT [facility] 07/03/2019 7:51 AM CDT Sharon Ortez NP LABORATORY Final Resul t Performing Organization Address City/[facility]/ZIP Co de Phone Number [facility] [address] [place] [address], [place] [phone] * FOLIC ACID SERUM (07/03/2019 7:51 AM CDT) FOLATE 5.6 3.1 - 17.5 NG/ML 07/03/2019 11:58 AM CDT [facility] 07/03/2019 7:51 AM CDT Sharon Ortez NP LABORATORY Final Resul t [facility] [address] [place] [address], [place] [phone] * (ABNORMAL) CBC W/DIFF AUTOMATED (07/03/2019 7:51 AM CDT) [facility] WBC 7.2 4.5 - 11.0 x10'3/uL 07/03/2019 8:58 AM CDT [facility] RBC 1.91(L) 4.20 - 5.40 x10'6/uL 07/03/2019 8:58 AM CDT [facility] HGB 5.6(LL) 12.0 - 16.0 G/DL 07/03/2019 8:58 AM CDT [facility] Comment: This result has been called to ROLF PATTERNOSTER by KAYLA YEBOAH on 07 03 2019 at 0858, and has been read back. HCT 17.7(LL) 38.0 - 48.0 % 07/03/2019 8:58 AM CDT [facility] Comment: This result has been called to ROLF PATTERNOSTER by KAYLA YEBOAH on 07 03 2019 at 0858, and has been read back. MCV 92.7 80.0 - 94.0 FL 07/03/2019 8:58 AM CDT [facility] MCH 29.3 27.0 - 31.0 PG 07/03/2019 8:58 AM CDT [facility] MCHC 31.6(L) 32.0 - 36.0 G/DL 07/03/2019 8:58 AM CDT [facility] RDW 15.2(H) 11.5 - 14.5 % 07/03/2019 8:58 AM CDT [facility] PLT 186 130 - 400 x10'3/uL 07/03/2019 8:58 AM CDT [facility] MPV 10.4 9.3 - 12.2 FL 07/03/2019 8:58 AM CDT [facility] DIFFERENTIAL TYPE AUTOMATED DIFFERENTIAL 07/03/2019 8:58 AM CDT [facility] NEUTROPHILS % 70.5 % 07/03/2019 8:58 AM CDT [facility] LYMPHOCYTES % 17.7 % 07/03/2019 8:58 AM CDT [facility] MONOCYTES % 8.6 % 07/03/2019 8:58 AM CDT [facility] EOSINOPHILS 2.2 % 07/03/2019 8:58 AM CDT [facility] BASOPHILS 0.3 % 07/03/2019 8:58 AM CDT [facility] IMMATURE GRANS % 0.7 % 07/03/19 8:58 AM CDT [facility] ABS. NEUTROPHILS TOTAL 5.11 1.80 - 7.70 x10'3/uL 07/03/2019 8:58 AM CDT [facility] ABS. LYMPHOCYTES 1.28 1.00 - 4.80 x10'3/uL 07/03/2019 8:58 AM CDT [facility] ABS. MONOCYTES 0.62 0.24 - 0.86 x10'3/uL 07/03/2019 8:58 AM CDT [facility] ABS. EOSINOPHILS 0.16 0.04 - 0.36 x10'3/uL 07/03/2019 8:58 AM CDT [facility] ABS. BASOPHILS 0.02 0.01 - 0.08 x10'3/uL 07/03/2019 8:58 AM CDT [facility] ABS. IMMATURE GRANULOCYTES 0.05 0.00 - 0.49 x10'3/uL 07/03/2019 8:58 AM CDT [facility] 07/03/2019 7:51 AM CDT Loraine Penaloza MD LABORATORY Final Result [facility] [address] [place] [address], [place] [phone] * (ABNORMAL) POCT glucose (07/03/2019 6:17 AM CDT) GLUCOSE POC 199(H) 70 - 99 mg/dL 07/03/2019 6:31 AM CDT [facility] LAB ORDERS INTERFACE 07/03/2019 6:17 AM CDT us Sharon Santiagot PIPELINE INSPECTOR POCT ORDERABLES - DEVICE Fi nal Result Performing Organization Address [facility] Co de Phone Number [facility] LAB ORDERS INTERFACE US * (ABNORMAL) POCT glucose (07/02/2019 9:02 PM CDT) GLUCOSE POC 402(HH) 70 - 99 mg/dL 07/02/2019 9:21 PM CDT [facility] LAB ORDERS INTERFACE 07/02/2019 9:02 PM CDT Sharon Galloolt PIPELINE INSPECTOR POCT ORDERABLES - DEVICE Fi nal Result Performing Organization Address [facility] Co de Phone Number [facility] LAB ORDERS INTERFACE US * (ABNORMAL) POCT glucose (07/02/2019 3:59 PM CDT) GLUCOSE POC 161(H) 70 - 99 mg/dL 07/02/2019 4:50 PM CDT [facility] LAB ORDERS INTERFACE 07/02/2019 3:59 PM CDT us Sharon Raineyolt PIPELINE INSPECTOR POCT ORDERABLES - DEVICE Fi nal Result Performing Organization Address City/[facility]/ZIP Co de Phone Number [facility] LAB ORDERS INTERFACE US * MRI ANKLE [...] - 99 MG/DL 07/02/2019 12:32 PM CDT [facility] BUN 16 7 - 18 MG/DL 07/02/2019 12:32 PM CDT [facility] CREATININE S/P/B 0.87 0.55 - 1.02 MG/DL 07/02/2019 12:32 PM CDT [facility] SODIUM S/P/B 134(L) 136 - 145 MMOL/L 07/02/2019 12:32 PM CDT [facility] POTASSIUM S/P/B 3.6 3.5 - 5.1 MMOL/L 07/02/2019 12:32 PM CDT [facility] CHLORIDE S/P/B 97(L) 100 - 108 MMOL/L 07/02/2019 12:32 PM CDT [facility] CO2 32.8(H) 21 - 32 MMOL/L 07/02/2019 12:32 PM CDT [facility] CALCIUM S/P/B 8.7 8.5 - 10.1 MG/DL 07/02/2019 12:32 PM CDT [facility] ANION GAP 4.2(L) 5 - 15 MMOL/L 07/02/2019 12:32 PM CDT [facility] BUN CREATININE RATIO 18.4 6 - 26 07/02/2019 12:32 PM CDT [facility] EGFR NON-AFR. AMER. 70(L) >90 ML/MIN/1.7 3 M2 07/02/2019 12:32 PM CDT [facility] EGFR AFR. AMER. 82(L) >90 ML/MIN/1.7 3 M2 07/02/2019 12:32 PM CDT [facility] Comment: NOTE: eGFR is not calculated for patients <18 years of age. This is an estimated GFR (CKD EPI) and should not be used for calculating drug doses. 07/02/2019 11:2 8 AM CDT Loraine Penaloza MD LABORATORY Final Result Performing Organization Address City/[facility]/ZIP Co de Phone Number [facility] [address] [place] [address], * VANCOMYCIN TROUGH (07/02/2019 11:28 AM CDT) [facility] VANCOMYCIN TROUGH 14.6 10.0 - 20.0 MCG/ML 07/02/2019 12:07 PM CDT [facility] Comment: ? THERAPEUTIC: 10.0-20.0 ? TOXIC: >25.0 VANCOMYCIN UNKNOWN LAST DOSE 07/02/2019 2:01 PM CDT [facility] 07/02/2019 11:2 8 AM CDT Loraine Penaloza MD LABORATORY Final Result [facility] [address] [place] [address], [place] [phone] * (ABNORMAL) THYROXINE, FREE (FT4) (07/02/2019 11:28 AM CDT) [facility] FREE T4 0.45(L) 0.76 - 1.46 NG/DL 07/02/2019 12:32 PM CDT [facility] 07/02/2019 11:2 8 AM CDT Loraine Penaloza MD LABORATORY Final Result [facility] [address] [place] [address], [place] [phone] * (ABNORMAL) CBC W/DIFF AUTOMATED (07/02/2019 11:28 AM CDT) [facility] WBC 7.2 4.5 - 11.0 x10'3/uL 07/02/2019 11:51 AM CDT [facility] RBC 2.69(L) 4.20 - 5.40 x10'6/uL 07/02/2019 11:51 AM CDT [facility] HGB 7.9(L) 12.0 - 16.0 G/DL 07/02/2019 11:51 AM CDT [facility] HCT 24.7(L) 38.0 - 48.0 % 07/02/2019 11:51 AM CDT [facility] MCV 91.8 80.0 - 94.0 FL 07/02/2019 11:51 AM CDT [facility] MCH 29.4 27.0 - 31.0 PG 07/02/2019 11:51 AM CDT [facility] MCHC 32.0 32.0 - 36.0 G/DL 07/02/2019 11:51 AM CDT [facility] RDW 15.5(H) 11.5 - 14.5 % 07/02/2019 11:51 AM CDT [facility] PLT 168 130 - 400 x10'3/uL 07/02/2019 11:51 AM CDT [facility] MPV 10.4 9.3 - 12.2 FL 07/02/2019 11:51 AM CDT [facility] DIFFERENTIAL TYPE AUTOMATED DIFFERENTIAL 07/02/2019 11:51 AM CDT [facility] NEUTROPHILS % 78.9 % 07/02/2019 11:51 AM CDT [facility] LYMPHOCYTES % 11.7 % 07/02/2019 11:51 AM T [facility] MONOCYTES % 6.4 % 07/02/2019 11:51 AM T [facility] EOSINOPHILS 2.1 % 07/02/2019 11:51 AM CDT [facility] BASOPHILS 0.3 % 07/02/2019 11:51 AM CDT [facility] IMMATURE GRANS % 0.6 % 07/02/19 20 11:51 AM CDT [facility] ABS. NEUTROPHILS TOTAL 5.68 1.80 - 7.70 x10'3/uL 07/02/2019 11:51 AM CDT [facility] ABS. LYMPHOCYTES 0.84(L) 1.00 - 4.80 x10'3/uL 07/02/2019 11:51 AM CDT [facility] ABS. MONOCYTES 0.46 0.24 - 0.86 x10'3/uL 07/02/2019 11:51 AM T [facility] ABS. EOSINOPHILS 0.15 0.04 - 0.36 x10'3/uL 07/02/2019 11:51 AM CDT [facility] ABS. BASOPHILS 0.02 0.01 - 0.08 x10'3/uL 07/02/2019 11:51 AM CDT [facility] ABS. IMMATURE GRANULOCYTES 0.04 0.00 - 0.49 x10'3/uL 07/02/2019 11:51 AM CDT [facility] 07/02/2019 11:2 8 AM CDT Loraine Penaloza MD LABORATORY Final Result Performing Organization Address [facility] Co de Phone Number [facility] [address] [place] [address], * CULTURE, BACTERIA, BLOOD (07/02/2019 11:28 AM CDT) SPEC DESCRIPTION BLOOD 07/02/2019 12:30 AM CDT [facility] SPECIAL REQUESTS NO SPECIAL REQUEST 07/02/2019 12:30 AM CDT [facility] CULTURE RESULT NO GROWTH 5 DAYS 07/07/2019 1:51 PM CDT [facility] BLOOD SPECIMEN OBTAINED FOR BLOOD CULTURE / Unknown 07/02/2019 11:28 AM CDT 07/02/2019 11:29 AM CDT Loraine Penaloza MD MICROBIOLOGY - GENERAL ORDERABLES Final Result [facility] [address] [place] [address], [place] [phone] * (ABNORMAL) CULTURE, BACTERIA, BLOOD (07/02/2019 11:28 AM CDT) SPEC DESCRIPTION BLOOD 07/02/2019 12:30 AM CDT [facility] SPECIAL REQUESTS NO SPECIAL REQUEST 07/02/2019 12:30 AM CDT [facility] GRAM STAIN RESULT GRAM POSITIVE COCCI RESEMBLING STREPTOCOCCUS SPECIES 07/03/2019 8:20 AM CDT [facility] GRAM STAIN RESULT GS CALLED TO AND REPEATED BACK BY ROLF YEE RN TEL 07/03/19 0820 LAE. 07/03/2019 8:20 AM CDT [facility] CULTURE RESULT VANCOMYCIN RESISTANT ENTEROCOCCUS FAECALIS DETECTED BY [facility] NUCLEIC ACID TEST FOLLOW ISOLATION PROTOCOL. (AA) 07/05/2019 8:14 AM CDT [facility] CULTURE RESULT [facility] CALLED TO AND REPETEAD BACK [facility] 07/03/19 1135 LAE. 07/05/2019 8:14 AM CDT [facility] CULTURE RESULT GROWTH OF VANCOMYCIN RESISTANT ENTEROCOCCUS FAECALIS CALLED TO AND REPEATED BACK BY KHADAR HUMPHREYS AT 0812 CLW 07/05/2019 FOLLOW ISOLATION PROTOCOL. (AA) 07/05/2019 8:14 AM CDT [facility] BLOOD SPECIMEN OBTAINED FOR BLOOD CULTURE [...] MD MICROBIOLOGY - GENERAL ORDERABLES Final Result [facility] [address] [place] [address], * (ABNORMAL) POCT glucose (07/02/2019 10:51 AM CDT) [facility] Signature GLUCOSE POC 336(H) 70 - 99 mg/dL 07/02/2019 12:01 PM CDT [facility] LAB ORDERS INTERFACE 07/02/2019 10:5 1 AM CDT Sharon Pérez PIPELINE INSPECTOR POCT ORDERABLES - DEVICE Fi nal Result Performing Organization Address [facility] de Phone Number [facility] ORDERS INTERFACE US * (ABNORMAL) POCT glucose (07/02/2019 6:01 AM CDT) GLUCOSE POC 267(H) 70 - 99 mg/dL 07/02/2019 6:03 AM CDT [facility] LAB ORDERS INTERFACE 07/02/2019 6:01 AM CDT Sharon Pérez PIPELINE INSPECTOR POCT ORDERABLES - DEVICE Fi nal Result Performing Organization Address [facility] de Phone Number [facility] ORDERS INTERFACE US * (ABNORMAL) VANCOMYCIN TROUGH (07/01/2019 10:00 PM CDT) VANCOMYCIN TROUGH 32.9(HH) 10.0 - 20.0 MCG/ML 07/01/2019 11:50 PM CDT [facility] Comment: SGG CALLED CRITICAL RESULTS AT [id number] TO AND READ BACK BY ANNAMARIA HAGEN ? THERAPEUTIC: 10.0-20.0 ? TOXIC: >25.0 VANCOMYCIN UNKNOWN LAST DOSE 07/02/2019 1:59 PM CDT [facility] 07/01/2019 10:0 0 PM CDT Savanna Ardon MD LABORATORY Final Re sult Performing Organization Address [facility] de Phone Number [facility] [address] [place] [address], [place] [phone] * (ABNORMAL) POCT glucose (07/01/2019 9:44 PM CDT) GLUCOSE POC 184(H) 70 - 99 mg/dL 07/01/2019 10:54 PM CDT [facility] LAB ORDERS INTERFACE 07/01/2019 9:44 PM CDT us Loraine Penaloza MD POCT ORDERABLES - GILMA CE Final Result Performing Organization Address [facility] de Phone Number [facility] LAB ORDERS INTERFACE US * POCT glucose (07/01/2019 4:30 PM CDT) GLUCOSE POC 70 70 - 99 mg/dL 07/01/2019 4:33 PM CDT [facility] LAB ORDERS INTERFACE 07/01/2019 4:30 PM CDT us Loraine Penaloza MD POCT ORDERABLES - GILMA CE Final Result Performing Organization Address [facility] de Phone Number [facility] ORDERS INTERFACE US * (ABNORMAL) POCT glucose (07/01/2019 3:40 PM CDT) GLUCOSE POC 48(L) 70 - 99 mg/dL 07/01/2019 4:52 PM CDT [facility] LAB ORDERS INTERFACE 07/01/2019 3:40 PM CDT us Loraine Penaloza MD POCT ORDERABLES - GILMA CE Final Result Performing Organization Address [facility] de Phone Number [facility] ORDERS INTERFACE US * (ABNORMAL) POCT glucose (07/01/2019 11:13 AM CDT) GLUCOSE POC 275(H) 70 - 99 mg/dL 07/01/2019 11:23 AM CDT [facility] ORDERS INTERFACE 07/01/2019 11:1 3 AM CDT us Loraine Penaloza MD POCT ORDERABLES - GILMA CE Final Result Performing Organization Address [facility] Co de Phone Number [facility] ORDERS INTERFACE US * (ABNORMAL) CBC W/DIFF AUTOMATED (07/01/2019 9:51 AM CDT) [facility] WBC 7.8 4.5 - 11.0 x10'3/uL 07/01/2019 10:19 AM CDT [facility] RBC 2.95(L) 4.20 - 5.40 x10'6/uL 07/01/2019 10:19 AM CDT [facility] HGB 8.7(L) 12.0 - 16.0 G/DL 07/01/2019 10:19 AM CDT [facility] HCT 26.9(L) 38.0 - 48.0 % 07/01/2019 10:19 AM CDT [facility] MCV 91.2 80.0 - 94.0 FL 07/01/2019 10:19 AM CDT [facility] MCH 29.5 27.0 - 31.0 PG 07/01/2019 10:19 AM CDT [facility] MCHC 32.3 32.0 - 36.0 G/DL 07/01/2019 10:19 AM CDT [facility] RDW 15.4(H) 11.5 - 14.5 % 07/01/2019 10:19 AM CDT [facility] PLT 191 130 - 400 x10'3/uL 07/01/2019 10:19 AM CDT [facility] MPV 10.2 9.3 - 12.2 FL 07/01/2019 10:19 AM CDT [facility] DIFFERENTIAL TYPE AUTOMATED DIFFERENTIAL 07/01/2019 10:19 AM CDT [facility] NEUTROPHILS % 77.8 % 07/01/2019 10:19 AM CDT [facility] LYMPHOCYTES % 13.6 % 07/01/2019 10:19 AM CDT [facility] MONOCYTES % 5.5 % 07/01/2019 10:19 AM CDT [facility] EOSINOPHILS 1.5 % 07/01/2019 10:19 AM CDT [facility] BASOPHILS 0.4 % 07/01/2019 10:19 AM CDT [facility] IMMATURE GRANS % 1.2 % 07/01/19 10:19 AM CDT [facility] ABS. NEUTROPHILS TOTAL 6.04 1.80 - 7.70 x10'3/uL 07/01/2019 10:19 AM CDT [facility] ABS. LYMPHOCYTES 1.06 1.00 - 4.80 x10'3/uL 07/01/2019 10:19 AM CDT [facility] ABS. MONOCYTES 0.43 0.24 - 0.86 x10'3/uL 07/01/2019 10:19 AM CDT [facility] ABS. EOSINOPHILS 0.12 0.04 - 0.36 x10'3/uL 07/01/2019 10:19 AM CDT [facility] ABS. BASOPHILS 0.03 0.01 - 0.08 x10'3/uL 07/01/2019 10:19 AM CDT [facility] ABS. IMMATURE GRANULOCYTES 0.09 0.00 - 0.49 x10'3/uL 07/01/2019 10:19 AM CDT [facility] 07/01/2019 9:51 AM CDT us Loraine Penaloza MD LABORATORY Final Result [facility] [address] [place] [address], [place] [phone] * (ABNORMAL) BASIC METABOLIC PANEL (07/01/2019 9:51 AM CDT) GLUCOSE 93 70 - 99 MG/DL 07/01/2019 10:37 AM [facility] BUN 20(H) 7 - 18 MG/DL 07/01/2019 10:37 AM [facility] CREATININE S/P/B 0.95 0.55 - 1.02 MG/DL 07/01/2019 10:37 AM [facility] SODIUM S/P/B 136 136 - 145 MMOL/L 07/01/2019 10:37 AM [facility] POTASSIUM S/P/B 3.7 3.5 - 5.1 MMOL/L 07/01/2019 10:37 AM [facility] CHLORIDE S/P/B 99(L) 100 - 108 MMOL/L 07/01/2019 10:37 AM [facility] CO2 31.5 21 - 32 MMOL/L 07/01/2019 10:37 AM [facility] CALCIUM S/P/B 8.9 8.5 - 10.1 MG/DL 07/01/2019 10:37 AM [facility] ANION GAP 5.5 5 - 15 MMOL/L 07/01/2019 10:37 AM [facility] BUN CREATININE RATIO 21.1 6 - 26 07/01/2019 10:37 AM [facility] EGFR NON-AFR. AMER. 63(L) >90 ML/MIN/1.7 3 M2 07/01/2019 10:37 AM [facility] EGFR AFR. AMER. 73(L) >90 ML/MIN/1.7 3 M2 07/01/2019 10:37 AM [facility] Comment: NOTE: eGFR is not calculated for patients <18 years of age. This is an estimated GFR (CKD EPI) and should not be used for calculating drug doses. 07/01/2019 9:51 AM CDT us Loraine Penaloza MD LABORATORY Final Result [facility] [address] [place] [address], [place] [phone] * (ABNORMAL) POCT glucose (07/01/2019 8:57 AM CDT) GLUCOSE POC 136(H) 70 - 99 mg/dL 07/01/2019 9:02 AM CDT [facility] LAB ORDERS INTERFACE 07/01/2019 8:57 AM CDT us Loraine Penaloza MD POCT ORDERABLES - GILMA CE Final Result Performing Organization Address [facility] Co de Phone Number [facility] ORDERS INTERFACE US * (ABNORMAL) POCT glucose (07/01/2019 6:47 AM CDT) GLUCOSE POC 67(L) 70 - 99 mg/dL 07/01/2019 6:49 AM CDT [facility] ORDERS INTERFACE 07/01/2019 6:47 AM CDT us Loraine Penaloza MD POCT ORDERABLES - GILMA CE Final Result Performing Organization Address [facility] Co de Phone Number [facility] ORDERS INTERFACE US * (ABNORMAL) POCT glucose (07/01/2019 6:08 AM CDT) GLUCOSE POC 42(L) 70 - 99 mg/dL 07/01/2019 6:32 AM CDT [facility] ORDERS INTERFACE 07/01/2019 6:08 AM CDT us Loraine Penaloza MD POCT ORDERABLES - GILMA CE Final Result Performing Organization Address [facility]/ZIP Co de Phone Number [facility] ORDERS INTERFACE US * (ABNORMAL) POCT glucose (06/30/2019 9:51 PM CDT) GLUCOSE POC 113(H) 70 - 99 mg/dL 06/30/2019 9:53 PM CDT [facility] ORDERS INTERFACE 06/30/2019 9:51 PM CDT us Loraine Penaloza MD POCT ORDERABLES - GILMA CE Final Result Performing Organization Address [facility] de Phone Number [facility] ORDERS INTERFACE US * (ABNORMAL) POCT glucose (06/30/2019 8:37 PM CDT) GLUCOSE POC 64(L) 70 - 99 mg/dL 06/30/2019 8:49 PM CDT [facility] ORDERS INTERFACE 06/30/2019 8:37 PM CDT us Loraine Penaloza MD POCT ORDERABLES - GILMA CE Final Result Performing Organization Address [facility] de Phone Number [facility] ORDERS INTERFACE US * (ABNORMAL) POCT glucose (06/30/2019 3:50 PM CDT) GLUCOSE POC 162(H) 70 - 99 mg/dL 06/30/2019 3:51 PM CDT [facility] ORDERS INTERFACE 06/30/2019 3:50 PM CDT Loraine Penaloza MD POCT ORDERABLES - GILMA CE Final Result Performing Organization Address [facility] de Phone Number [facility] LAB ORDERS INTERFACE US * USE ECHOCARDIOGRAM W CON (06/30/2019 12:58 PM CDT) Anatomical Region Laterality Modality NA Echocardiogram 06/30/2019 12:3 1 PM CDT Narrative 06/30/2019 2:55 PM CDT ?Echocardiography Report Pat.Name: ??IRIS GIL ? Pat.ID: ?[id number] ? St.Date: ?? 06/30/2019 ? Exam Time: [...] ? Right Ventricle ??24.4 mm ?? Major Audubon ?82.7 mm ?MMODE TA ?? Tricuspid Annul ??12.6 mm ? Signed 06/30/2019 02:55 PM Kirk Seaman, M.D. Procedure Note Kirk Seaman MD - 06/30/2019 Echocardiography Report Pat.Name: IRIS GIL Pat.ID: [id number] .Date: 06/30/2019 Exam Time: 12:31:00 PM Study [...] 31.9 mm Right Ventricle 24.4 mm Major Audubon 82.7 mm MMODE TA Tricuspid Annul 12.6 mm Signed 06/30/2019 02:55 PM Kirk Seaman M.D. us Savanna Ardon MD ECHO Final Re sult * (ABNORMAL) POCT glucose (06/30/2019 11:47 AM CDT) GLUCOSE POC 244(H) 70 - 99 mg/dL 06/30/2019 11:49 AM CDT [facility] ORDERS INTERFACE 06/30/2019 11:4 7 AM CDT us Loraine Penaloza MD POCT ORDERABLES - GILMA CE Final Result [facility] LAB ORDERS INTERFACE US * (ABNORMAL) POCT glucose (06/30/2019 8:03 AM CDT) GLUCOSE POC 205(H) 70 - 99 mg/dL 06/30/2019 11:49 AM CDT [facility] ORDERS INTERFACE 06/30/2019 8:03 AM CDT us Loraine Penaloza MD POCT ORDERABLES - GILMA CE Final Result Performing Organization Address [facility] Co de Phone Number [facility] LAB ORDERS INTERFACE US * (ABNORMAL) POCT glucose (06/30/2019 7:21 AM CDT) GLUCOSE POC 56(L) 70 - 99 mg/dL 06/30/2019 7:23 AM CDT [facility] ORDERS INTERFACE 06/30/2019 7:21 AM CDT us Loraine Penaloza MD POCT ORDERABLES - GILMA CE Final Result Performing Organization Address [facility] Phone Number [facility] ORDERS INTERFACE US * (ABNORMAL) POCT glucose (06/30/2019 6:59 AM CDT) GLUCOSE POC 50(L) 70 - 99 mg/dL 06/30/2019 7:23 AM CDT [facility] ORDERS INTERFACE 06/30/2019 6:59 AM CDT us Loraine Penaloza MD POCT ORDERABLES - GILMA CE Final Result Performing Organization Address [facility] de Phone Number [facility] ORDERS INTERFACE US * (ABNORMAL) CBC W/DIFF AUTOMATED (06/30/2019 6:45 AM CDT) WBC 8.3 4.5 - 11.0 x10'3/uL 06/30/2019 7:29 AM CDT [facility] RBC 2.81(L) 4.20 - 5.40 x10'6/uL 06/30/2019 7:29 AM CDT [facility] HGB 8.3(L) 12.0 - 16.0 G/DL 06/30/2019 7:29 AM CDT [facility] HCT 25.5(L) 38.0 - 48.0 % 06/30/2019 7:29 AM CDT [facility] MCV 90.7 80.0 - 94.0 FL 06/30/2019 7:29 AM CDT [facility] MCH 29.5 27.0 - 31.0 PG 06/30/2019 7:29 AM CDT [facility] MCHC 32.5 32.0 - 36.0 G/DL 06/30/2019 7:29 AM CDT [facility] RDW 15.1(H) 11.5 - 14.5 % 06/30/2019 7:29 AM CDT [facility] PLT 213 130 - 400 x10'3/uL 06/30/2019 7:29 AM CDT [facility] MPV 10.5 9.3 - 12.2 FL 06/30/2019 7:29 AM CDT [facility] DIFFERENTIAL TYPE AUTOMATED DIFFERENTIAL 06/30/2019 7:29 AM CDT [facility] NEUTROPHILS % 76.2 % 06/30/2019 7:29 AM CDT [facility] LYMPHOCYTES % 15.4 % 06/30/2019 7:29 AM CDT [facility] MONOCYTES % 5.3 % 06/30/2019 7:29 AM CDT [facility] EOSINOPHILS 1.7 % 06/30/2019 7:29 AM CDT [facility] BASOPHILS 0.6 % 06/30/2019 7:29 AM CDT [facility] IMMATURE GRANS % 0.8 % 06/30/19 20 7:29 AM CDT [facility] ABS. NEUTROPHILS TOTAL 6.34 1.80 - 7.70 x10'3/uL 06/30/2019 7:29 AM CDT [facility] ABS. LYMPHOCYTES 1.28 1.00 - 4.80 x10'3/uL 06/30/2019 7:29 AM CDT [facility] ABS. MONOCYTES 0.44 0.24 - 0.86 x10'3/uL 06/30/2019 7:29 AM CDT [facility] ABS. EOSINOPHILS 0.14 0.04 - 0.36 x10'3/uL 06/30/2019 7:29 AM CDT [facility] ABS. BASOPHILS 0.05 0.01 - 0.08 x10'3/uL 06/30/2019 7:29 AM CDT [facility] ABS. IMMATURE GRANULOCYTES 0.07 0.00 - 0.49 x10'3/uL 06/30/2019 7:29 AM CDT [facility] 06/30/2019 6:45 AM CDT us Loraine Penaloza MD LABORATORY Final Result [facility] [address] [place] [address], * (ABNORMAL) BASIC METABOLIC PANEL (06/30/2019 6:45 AM CDT) GLUCOSE 46(L) 70 - 99 MG/DL 06/30/2019 7:42 AM CDT [facility] BUN 27(H) 7 - 18 MG/DL 06/30/2019 7:42 AM CDT [facility] CREATININE S/P/B 0.92 0.55 - 1.02 MG/DL 06/30/2019 7:42 AM CDT [facility] SODIUM S/P/B 137 136 - 145 MMOL/L 06/30/2019 7:42 AM CDT [facility] POTASSIUM S/P/B 3.5 3.5 - 5.1 MMOL/L 06/30/2019 7:42 AM CDT [facility] CHLORIDE S/P/B 101 100 - 108 MMOL/L 06/30/2019 7:42 AM CDT [facility] CO2 29.0 21 - 32 MMOL/L 06/30/2019 7:42 AM CDT [facility] CALCIUM S/P/B 8.5 8.5 - 10.1 MG/DL 06/30/2019 7:42 AM CDT [facility] ANION GAP 7.0 5 - 15 MMOL/L 06/30/2019 7:42 AM CDT [facility] BUN CREATININE RATIO 29.3(H) 6 - 26 06/30/2019 7:42 AM CDT [facility] EGFR NON-AFR. AMER. 66(L) >90 ML/MIN/1.7 3 M2 06/30/2019 7:42 AM CDT [facility] EGFR AFR. AMER. 76(L) >90 ML/MIN/1.7 3 M2 06/30/2019 7:42 AM T [facility] Comment: NOTE: eGFR is not calculated for patients <18 years of age. This is an estimated GFR (CKD EPI) and should not be used for calculating drug doses. 06/30/2019 6:45 AM CDT us Loraine Penaloza MD LABORATORY Final Result [facility] [address] [place] [address], [place] [phone] * (ABNORMAL) POCT glucose (06/30/2019 6:40 AM CDT) GLUCOSE POC 47(L) 70 - 99 mg/dL 06/30/2019 7:23 AM CDT [facility] LAB ORDERS INTERFACE 06/30/2019 6:40 AM CDT us Loraine Penaloza MD POCT ORDERABLES - GILMA CE Final Result Performing Organization Address [facility] Phone Number [facility] LAB ORDERS INTERFACE US * (ABNORMAL) POCT glucose (06/29/2019 8:12 PM CDT) GLUCOSE POC 194(H) 70 - 99 mg/dL 06/29/2019 8:46 PM CDT [facility] ORDERS INTERFACE 06/29/2019 8:12 PM CDT us Loraine Penaloza MD POCT ORDERABLES - GILMA CE Final Result Performing Organization Address [facility] Phone Number [facility] LAB ORDERS INTERFACE US * (ABNORMAL) POCT glucose (06/29/2019 4:02 PM CDT) GLUCOSE POC 334(H) 70 - 99 mg/dL 06/29/2019 5:00 PM CDT [facility] ORDERS INTERFACE 06/29/2019 4:02 PM CDT us Loraine Penaloza MD POCT ORDERABLES - GILMA CE Final Result Performing Organization Address [facility] Phone Number [facility] LAB ORDERS INTERFACE US * (ABNORMAL) THYROID STIM HORMONE, TSH (06/29/2019 1:52 PM CDT) TSH 20.700(H) 0.358 - 3.74 uIU/ML 06/29/2019 2:46 PM CDT [facility] Comment: HIGH DOSES OF BIOTIN MAY INTERFERE WITH THIS TEST RESULT. CORRELATION TO CLINICAL HISTORY AND PRESENTATION RECOMMENDED. 06/29/2019 1:52 PM CDT us Savanna Ardon MD LABORATORY Final Re sult Performing Organization Address [facility] de Phone Number [facility] [address] [place] [address], * (ABNORMAL) LIPID PANEL (06/29/2019 1:52 PM CDT) [facility] Signature CHOLESTEROL 201(H) <200 MG/DL 06/29/2019 2:37 PM CDT [facility] TRIGLYCERIDES 123 <150 MG/DL 06/29/2019 2:37 PM CDT [facility] HDL 84 >40.0 MG/DL 06/29/2019 2:37 PM CDT [facility] LDL (CALCULATED) 92 <100 MG/DL 06/29/2019 2:37 PM CDT [facility] NON HDL CHOLESTEROL 117 <130 MG/DL 06/29/2019 2:37 PM CDT [facility] CHOL/HDL RATIO 2.4 0.0 - 4.5 06/29/2019 2:37 PM CDT [facility] VLDL CALCULATION 25 5 - 55 MG/DL 06/29/2019 2:37 PM CDT [facility] LIPID INTERPRETATION 06/29/2019 2:37 PM T [facility] Comment: [facility] REPORT RECOMMENDATIONS: ?ADULT [...] Savanna Ardon MD LABORATORY Final Re sult [facility] [address] [place] [address], * (ABNORMAL) BASIC METABOLIC PANEL (06/29/2019 1:52 PM CDT) GLUCOSE 229(H) 70 - 99 MG/DL 06/29/2019 2:46 PM CDT [facility] BUN 30(H) 7 - 18 MG/DL 06/29/2019 2:46 PM CDT [facility] CREATININE S/P/B 1.08(H) 0.55 - 1.02 MG/DL 06/29/2019 2:46 PM CDT [facility] SODIUM S/P/B 136 136 - 145 MMOL/L 06/29/2019 2:46 PM CDT [facility] POTASSIUM S/P/B 3.5 3.5 - 5.1 MMOL/L 06/29/2019 2:46 PM CDT [facility] CHLORIDE S/P/B 98(L) 100 - 108 MMOL/L 06/29/2019 2:46 PM CDT [facility] CO2 31.9 21 - 32 MMOL/L 06/29/2019 2:46 PM CDT [facility] CALCIUM S/P/B 8.9 8.5 - 10.1 MG/DL 06/29/2019 2:46 PM CDT [facility] ANION GAP 6.1 5 - 15 MMOL/L 06/29/2019 2:46 PM CDT [facility] BUN CREATININE RATIO 27.8(H) 6 - 26 06/29/2019 2:46 PM CDT [facility] EGFR NON-AFR. AMER. 54(L) >90 ML/MIN/1.7 3 M2 06/29/2019 2:46 PM CDT [facility] EGFR AFR. AMER. 63(L) >90 ML/MIN/1.7 3 M2 06/29/2019 2:46 PM CDT [facility] Comment: NOTE: eGFR is not calculated for patients <18 years of age. This is an estimated GFR (CKD EPI) and should not be used for calculating drug doses. 06/29/2019 1:52 PM CDT us Savanna Ardon MD LABORATORY Final Re sult [facility] [address] [place] [address], [place] [phone] * (ABNORMAL) CBC W/DIFF AUTOMATED (06/29/2019 1:52 PM CDT) [facility] WBC 7.8 4.5 - 11.0 x10'3/uL 06/29/2019 2:19 PM CDT [facility] RBC 3.04(L) 4.20 - 5.40 x10'6/uL 06/29/2019 2:19 PM CDT [facility] HGB 9.0(L) 12.0 - 16.0 G/DL 06/29/2019 2:19 PM CDT [facility] HCT 27.5(L) 38.0 - 48.0 % 06/29/2019 2:19 PM CDT [facility] MCV 90.5 81.0 - 99.0 FL 06/29/2019 2:19 PM CDT [facility] MCH 29.6 27.0 - 31.0 PG 06/29/2019 2:19 PM CDT [facility] MCHC 32.7 32.0 - 36.0 G/DL 06/29/2019 2:19 PM CDT [facility] RDW 15.1(H) 11.5 - 14.5 % 06/29/2019 2:19 PM CDT [facility] PLT 220 130 - 400 x10'3/uL 06/29/2019 2:19 PM CDT [facility] MPV 9.8 9.3 - 12.2 FL 06/29/2019 2:19 PM CDT [facility] DIFFERENTIAL TYPE AUTOMATED DIFFERENTIAL 06/29/2019 2:19 PM CDT [facility] NEUTROPHILS % 79.7 % 06/29/2019 2:19 PM CDT [facility] LYMPHOCYTES % 12.2 % 06/29/2019 2:19 PM CDT [facility] MONOCYTES % 4.9 % 06/29/2019 2:19 PM CDT [facility] EOSINOPHILS 1.5 % 06/29/2019 2:19 PM CDT [facility] BASOPHILS 0.5 % 06/29/2019 2:19 PM CDT [facility] IMMATURE GRANS % 1.2 % 06/29/19 2:19 PM CDT [facility] ABS. NEUTROPHILS TOTAL 6.20 1.80 - 7.70 x10'3/uL 06/29/2019 2:19 PM CDT [facility] ABS. LYMPHOCYTES 0.95(L) 1.00 - 4.80 x10'3/uL 06/29/2019 2:19 PM CDT [facility] ABS. MONOCYTES 0.38 0.24 - 0.86 x10'3/uL 06/29/2019 2:19 PM CDT [facility] ABS. EOSINOPHILS 0.12 0.04 - 0.36 x10'3/uL 06/29/2019 2:19 PM CDT [facility] ABS. BASOPHILS 0.04 0.01 - 0.08 x10'3/uL 06/29/2019 2:19 PM CDT [facility] ABS. IMMATURE GRANULOCYTES 0.09 0.00 - 0.49 x10'3/uL 06/29/2019 2:19 PM CDT [facility] 06/29/2019 1:52 PM CDT us Savanna Ardon MD LABORATORY Final Re sult [facility] [address] [place] [address], [place] [phone] * (ABNORMAL) POCT glucose (06/29/2019 11:36 AM CDT) GLUCOSE POC 180(H) 70 - 99 mg/dL 06/29/2019 3:30 PM CDT [facility] ORDERS INTERFACE 06/29/2019 11:3 6 AM CDT us Loraine Penaloza MD POCT ORDERABLES - [place] CE Final Result Performing Organization Address [facility] Co de Phone Number [facility] LAB ORDERS INTERFACE US * POCT glucose (06/29/2019 6:24 AM CDT) GLUCOSE POC 96 70 - 99 mg/dL 06/29/2019 6:28 AM CDT [facility] LAB ORDERS INTERFACE 06/29/2019 6:24 AM CDT us Loraine Penaloza MD POCT ORDERABLES - [place] CE Final Result Performing Organization Address [facility] Co de Phone Number [facility] LAB ORDERS INTERFACE US * (ABNORMAL) TROPONIN, QUANT (06/29/2019 2:35 AM CDT) TROPONIN I 0.135(HH) <0.045 ng/mL. 06/29/2019 3:47 AM CDT [facility] Comment: HIGH DOSES OF BIOTIN MAY INTERFERE WITH THIS TEST RESULT. CORRELATION TO CLINICAL HISTORY AND PRESENTATION RECOMMENDED. 06/29/2019 2:35 AM CDT us Savanna Ardon MD LABORATORY Final Re sult Performing Organization Address [facility]/ZIP Co de Phone Number [facility] [address] [place] [address], [place] [phone] * (ABNORMAL) LACTIC ACID - SINGLE (06/29/2019 12:09 AM CDT) LACTIC ACID VENOUS 2.9(H) 0.4 - 2.0 MMOL/L 06/29/2019 12:38 AM CDT [facility] Comment: BPM CALLED CRITICAL RESULTS AT [id number] TO AND READ BACK BY TEQUILA MOLINA RN 06/29/2019 12:0 9 AM CDT Savanna Ardon MD LABORATORY Final Re sult Performing Organization Address [facility] Co de Phone Number [facility] [address] [place] [address], [place] [phone] * (ABNORMAL) TROPONIN, QUANT (06/28/2019 9:34 PM CDT) TROPONIN I 0.125(HH) <0.045 ng/mL. 06/28/2019 10:15 PM CDT [facility] Comment: HIGH DOSES OF BIOTIN MAY INTERFERE WITH THIS TEST RESULT. CORRELATION TO CLINICAL HISTORY AND PRESENTATION RECOMMENDED. 06/28/2019 9:34 PM CDT Savanna Ardon MD LABORATORY Final Re sult Performing Organization Address [facility] Co de Phone Number [facility] [address] [place] [address], [place] [phone] * (ABNORMAL) POCT glucose (06/28/2019 8:20 PM CDT) GLUCOSE POC 352(H) 70 - 99 mg/dL 06/28/2019 8:34 PM CDT [facility] LAB ORDERS INTERFACE 06/28/2019 8:20 PM CDT Savanna Ardon MD POCT ORDERABLES - DEVICE Final Result Performing Organization Address City/[facility] Co de Phone Number [facility] LAB ORDERS INTERFACE US * (ABNORMAL) TROPONIN, QUANT (06/28/2019 7:42 PM CDT) TROPONIN I 0.124(HH) <0.045 ng/mL. 06/28/2019 8:19 PM CDT [facility] Comment: HIGH DOSES OF BIOTIN MAY INTERFERE WITH THIS TEST RESULT. CORRELATION TO CLINICAL HISTORY AND PRESENTATION RECOMMENDED. 06/28/2019 7:42 PM CDT Amanda Moore MD LABORATORY Final Result Performing Organization Address City/[facility]/ZIP Co de Phone Number [facility] [address] [place] [address], * (ABNORMAL) LACTIC ACID - SINGLE (06/28/2019 6:24 PM CDT) LACTIC ACID VENOUS 3.7(H) 0.4 - 2.0 MMOL/L 06/28/2019 7:07 PM CDT [facility] Comment: BPM CALLED CRITICAL RESULTS AT [id number] TO AND READ BACK BY TRANG VASQUEZ RN 06/28/2019 6:24 PM CDT Savanna Ardon MD LABORATORY Final Re sult Performing Organization Address City/[facility]/ZIP Co de Phone Number [facility] [address] [place] [address], [place] [phone] * (ABNORMAL) CULTURE, BACTERIA, BLOOD (06/28/2019 6:24 PM CDT) SPEC DESCRIPTION BLOOD 06/28/2019 6:10 PM CDT [facility] SPECIAL REQUESTS NO SPECIAL REQUEST 06/28/2019 6:10 PM CDT [facility] GRAM STAIN RESULT GRAM POSITIVE COCCI RESEMBLING STAPHYLOCOCCUS SPECIES 06/30/2019 12:17 PM CDT [facility] GRAM STAIN RESULT GRAM STAIN CALLED TO AND REPEATED BACK BY MANJINDER SRINIVASAN RN, AT 1215, 06/30/19. DJW 06/30/2019 12:17 PM CDT [facility] CULTURE RESULT GROWTH OF STAPH. SPECIES NOT STAPH. AUREUS SUSCEPTIBILTY NOT ROUTINELY PERFORMED. SAVING ISOLATE FOR 5 DAYS. CONTACT MICROBIOLOGY DEPARTMENT IF FURTHER WORKUP IS INDICATED. (AA) 07/02/2019 7:16 AM CDT [facility] BLOOD SPECIMEN OBTAINED FOR BLOOD CULTURE / Unknown 06/28/2019 6:24 PM CDT 06/28/2019 6:43 PM CDT Savanna Ardon MD MICROBIOLOGY - GENERAL O RDERAELBA Final Result [facility] [address] [place] [address], [place] [phone] * (ABNORMAL) CULTURE, BACTERIA, BLOOD (06/28/2019 6:24 PM CDT) SPEC DESCRIPTION BLOOD 06/28/2019 6:10 PM CDT [facility] SPECIAL REQUESTS NO SPECIAL REQUEST 06/28/2019 6:10 PM CDT [facility] GRAM STAIN RESULT GRAM POSITIVE COCCI RESEMBLING STREPTOCOCCUS SPECIES 06/29/2019 1:39 PM CDT [facility] GRAM STAIN RESULT GRAM STAIN CALLED TO AND REPEATED BACK BY ROLF DURBIN RN, AT 1335, 06/29/19. DJW 06/29/2019 1:39 PM CDT [facility] CULTURE RESULT METHICILLIN RESISTANT STAPHYLOCOCCUS AUREUS DETECTED BY VERIGENE NUCLEIC ACID TEST FOLLOW ISOLATION PROTOCOL. (AA) 07/01/2019 7:43 AM CDT [facility] CULTURE RESULT ENTEROCOCCUS FAECALIS DETECTED BY VERIGENE NUCLEIC ACID TEST NO RESISTANCE MARKERS DETECTED BY VERIGENE NUCLEIC ACID TEST. (AA) 07/01/2019 7:43 AM CDT [facility] CULTURE RESULT CALLED RN FOR MRSA ELOISECOBettina LEE. PHARMACY CALLED AT [phone] FOR VERIGENE RESULTS TALKED TO AJ HAYWARD. 07/01/2019 7:43 AM CDT [facility] CULTURE RESULT GROWTH OF METHICILLIN RESISTANT STAPHYLOCOCCUS AUREUS FOLLOW ISOLATION PROTOCOL. CALLED TO AND REPEATED BACK BY NANE DE OLIVEIRA AT 0732 CLW 07/01/2019 (AA) 07/01/2019 7:43 AM CDT [facility] CULTURE RESULT GROWTH OF ENTEROCOCCUS FAECALIS IF PATIENT IS PENICILLIN ALLERGIC, CONTACT THE MICROBIOLOGY DEPARTMENT FOR READILY AVAILABLE VANCOMYCIN SUSCEPTIBILITY. (AA) 07/01/2019 7:43 AM CDT [facility] BLOOD SPECIMEN OBTAINED FOR BLOOD CULTURE [...] MICROBIOLOGY - GENERAL O RDERABLES Final Result [facility] [address] [place] [address], * CULTURE URINE (06/28/2019 6:09 PM CDT) SPEC DESCRIPTION URINE KAPLAN CATH 06/28/2019 7:14 PM CDT [facility] SPECIAL REQUESTS NO SPECIAL REQUEST 06/28/2019 7:14 PM CDT [facility] CULTURE RESULT NO GROWTH 2 DAYS 07/01/2019 7:00 AM CDT [facility] URINE SPECIMEN OBTAINED VIA INDWELLING URINARY CATHETER / Unknown 06/28/2019 6:09 PM CDT 06/28/2019 7:13 PM CDT us Amanda Moore MD MICROBIOLOGY - GENERAL SREEDHAR ARREOLA Final Result [facility] [address] [place] [address], [place] [phone] * (ABNORMAL) URINALYSIS (06/28/2019 6:09 PM CDT) SPECIMEN TYPE URINE KAPLAN CATH 06/28/2019 6:08 PM CDT [facility] COLOR (U) PINKISH RED 06/28/2019 7:09 PM CDT [facility] TRANSPARENCY TURBID 06/28/2019 7:00 PM CDT [facility] SPECIFIC GRAVITY (U) 1.021 1.001 - 1.030 06/28/2019 7:00 PM CDT [facility] U PH 6.0 5.0 - 9.0 06/28/2019 7:00 PM CDT [facility] LEUKOCYTES (U) SMALL(A) NEGATIVE 06/28/2019 7:00 PM CDT [facility] NITRITES NEGATIVE NEGATIVE 06/28/2019 7:00 PM CDT [facility] PROTEIN (U) 100(H) <30 MG/DL 06/28/2019 7:00 PM CDT [facility] URINE GLUCOSE >500(A) NEGATIVE MG/DL 06/28/2019 7:00 PM CDT [facility] KETONES MG/DL (U) TRACE(A) NEGATIVE MG/DL 06/28/2019 7:00 PM CDT [facility] Comment: Successful Call: LALITHA called 06/28/2019 07:01 PM to EMERGENCY ROOM ([id number]/PETEY LAWSON) by [id number]. UROBILINOGEN NEGATIVE NEGATIVE MG/DL 06/28/2019 7:00 PM CDT [facility] BILIRUBIN (U) NEGATIVE NEGATIVE MG/DL 06/28/2019 7:00 PM CDT [facility] BLOOD (U) LARGE(A) NEGATIVE 06/28/2019 7:00 PM CDT [facility] CULTURE & SENSITIVITY INDICATED? SPECIMEN SETUP FOR CULTURE 06/28/2019 7:00 PM CDT [facility] WBC/HPF >100(H) <6 /HPF 06/28/2019 7:12 PM CDT [facility] Comment:CORRECTED ON 06/27 A T 191: PREVIOUSLY REPORTED <1 RBC/HPF >100(H) <6 /HPF 06/28/2019 7:12 PM CDT [facility] Comment:CORRECTED ON 06/27 Leslie T 191: PREVIOUSLY REPORTED <1 AMORPHOUS SEDIMENT MANY /HPF 06/28/2019 7:12 PM CDT [facility] URINE SPECIMEN OBTAINED VIA INDWELLING URINARY CATHETER / Unknown 06/28/2019 6:09 PM CDT us Amanda Moore MD URINE ORDERABLES Edited Resul t - Final Performing Organization Address City/[facility] Co de Phone Number [facility] [address] [place] [address], [place] [phone] * (ABNORMAL) POCT glucose (06/28/2019 5:35 PM CDT) GLUCOSE POC 441(HH) 70 - 99 mg/dL 06/28/2019 5:39 PM CDT [facility] ORDERS INTERFACE 06/28/2019 5:35 PM CDT us Amanda Moore MD POCT ORDERABLES - DEVICE Debbie l Result [facility] ORDERS INTERFACE US * CT CERV [...] - 215 U/L 06/28/2019 4:12 PM CDT [facility] 06/28/2019 2:26 PM CDT Amanda Moore MD LABORATORY Final Result Performing Organization Address [facility] Co de Phone Number [facility] [address] [place] [address], [place] [phone] * (ABNORMAL) TROPONIN, QUANT (06/28/2019 2:26 PM CDT) TROPONIN I 0.130(HH) <0.045 ng/mL. 06/28/2019 3:56 PM CDT [facility] Comment: ER CALLED CRITICAL RESULTS AT [id number] TO AND READ BACK BY JEF MALLORY HIGH DOSES OF BIOTIN MAY INTERFERE WITH THIS TEST RESULT. CORRELATION TO CLINICAL HISTORY AND PRESENTATION RECOMMENDED. 06/28/2019 2:26 PM CDT Amanda Moore MD LABORATORY Final Result Performing Organization Address City/[facility]/ZIP Co de Phone Number [facility] [address] [place] [address], [place] [phone] * (ABNORMAL) COMPREHENSIVE METABOLIC PANEL (06/28/2019 2:26 PM CDT) GLUCOSE 570(HH) 70 - 99 MG/DL 06/28/2019 3:56 PM CDT [facility] Comment: ER CALLED CRITICAL RESULTS AT [id number] TO AND READ BACK BY JEF MALLORY BUN 26(H) 7 - 18 MG/DL 06/28/2019 3:56 PM CDT [facility] CREATININE S/P/B 1.31(H) 0.55 - 1.02 MG/DL 06/28/2019 3:56 PM CDT [facility] SODIUM S/P/B 133(L) 136 - 145 MMOL/L 06/28/2019 3:56 PM CDT [facility] POTASSIUM S/P/B 4.1 3.5 - 5.1 MMOL/L 06/28/2019 3:56 PM CDT [facility] CHLORIDE S/P/B 92(L) 100 - 108 MMOL/L 06/28/2019 3:56 PM CDT [facility] CO2 33.3(H) 21 - 32 MMOL/L 06/28/2019 3:56 PM CDT [facility] CALCIUM S/P/B 9.5 8.5 - 10.1 MG/DL 06/28/2019 3:56 PM CDT [facility] BILIRUBIN TOTAL S/P/B 0.5 0.2 - 1.2 MG/DL 06/28/2019 3:56 PM CDT [facility] Comment: THIS ASSAY IS NOT RECOMMENDED FOR PATIENTS UNDERGOING TREATMENT WITH ELTROMBOPAG DUE TO THE POTENTIAL FOR FALSELY ELEVATED RESULTS. TOTAL PROTEIN S/P/B 8.1 6.4 - 8.2 G/DL 06/28/2019 3:56 PM CDT [facility] ALBUMIN S/P/B 2.9(L) 3.4 - 5.0 G/DL 06/28/2019 3:56 PM CDT [facility] AST 28 15 - 37 U/L 06/28/2019 3:56 PM CDT [facility] ALT 39 14 - 55 U/L 06/28/2019 3:56 PM CDT [facility] ALKALINE PHOSPHATASE S/P/B 75 50 - 136 U/L 06/28/2019 3:56 PM CDT [facility] ANION GAP 7.7 5 - 15 MMOL/L 06/28/2019 3:56 PM CDT [facility] BUN CREATININE RATIO 19.8 6 - 26 06/28/2019 3:56 PM CDT [facility] A/G RATIO 0.6(L) 1.0 - 2.0 RATIO 06/28/2019 3:56 PM CDT [facility] EGFR NON-AFR. AMER. 43(L) >90 ML/MIN/1.7 3 M2 06/28/2019 3:56 PM CDT [facility] EGFR AFR. AMER. 50(L) >90 ML/MIN/1.7 3 M2 06/28/2019 3:56 PM CDT [facility] Comment: NOTE: eGFR is not calculated for patients <18 years of age. This is an estimated GFR (CKD EPI) and should not be used for calculating drug doses. 06/28/2019 2:26 PM CDT Amanda Moore MD LABORATORY Final Result [facility] [address] [place] [address], [place] [phone] * (ABNORMAL) CBC W/DIFF AUTOMATED (06/28/2019 2:26 PM CDT) WBC 6.8 4.5 - 11.0 x10'3/uL 06/28/2019 4:16 PM CDT [facility] RBC 3.47(L) 4.20 - 5.40 x10'6/uL 06/28/2019 4:16 PM CDT [facility] HGB 10.2(L) 12.0 - 16.0 G/DL 06/28/2019 4:16 PM CDT [facility] HCT 30.8(L) 38.0 - 48.0 % 06/28/2019 4:16 PM CDT [facility] MCV 88.8 81.0 - 99.0 FL 06/28/2019 4:16 PM CDT [facility] MCH 29.4 27.0 - 31.0 PG 06/28/2019 4:16 PM CDT [facility] MCHC 33.1 32.0 - 36.0 G/DL 06/28/2019 4:16 PM CDT [facility] RDW 14.7(H) 11.5 - 14.5 % 06/28/2019 4:16 PM CDT [facility] PLT 267 130 - 400 x10'3/uL 06/28/2019 4:16 PM CDT [facility] MPV 11.0 9.3 - 12.2 FL 06/28/2019 4:16 PM CDT [facility] DIFFERENTIAL TYPE AUTOMATED DIFFERENTIAL 06/28/2019 4:16 PM CDT [facility] NEUTROPHILS % 74.0 % 06/28/2019 4:16 PM CDT [facility] LYMPHOCYTES % 16.1 % 06/28/2019 4:16 PM CDT [facility] MONOCYTES % 6.2 % 06/28/2019 4:16 PM CDT [facility] EOSINOPHILS 1.0 % 06/28/2019 4:16 PM CDT [facility] BASOPHILS 0.6 % 06/28/2019 4:16 PM CDT [facility] IMMATURE GRANS % 2.1 % 06/28/19 20 4:16 PM CDT [facility] ABS. NEUTROPHILS TOTAL 5.03 1.80 - 7.70 x10'3/uL 06/28/2019 4:16 PM CDT [facility] ABS. LYMPHOCYTES 1.09 1.00 - 4.80 x10'3/uL 06/28/2019 4:16 PM CDT [facility] ABS. MONOCYTES 0.42 0.24 - 0.86 x10'3/uL 06/28/2019 4:16 PM CDT [facility] ABS. EOSINOPHILS 0.07 0.04 - 0.36 x10'3/uL 06/28/2019 4:16 PM CDT [facility] ABS. BASOPHILS 0.04 0.01 - 0.08 x10'3/uL 06/28/2019 4:16 PM CDT [facility] ABS. IMMATURE GRANULOCYTES 0.14 0.00 - 0.49 x10'3/uL 06/28/2019 4:16 PM CDT [facility] 06/28/2019 2:26 PM CDT us Amanda Moore MD LABORATORY Final Result [facility] [address] [place] [address], * Critical Care (06/28/2019 2:09 PM CDT) [...] or life-threatening deterioration of the following conditions: ??DOCUMENTATION ENGINEER failure or compromise ??Critical care was time [...] PM CDT) 06/28/2019 2:08 PM CDT Narrative [facility] ([facility] RAD - 06/28/2019 4:46 PM CDT ?[facility] [place] ? [address] [facility] [place] ? Test Date: ?2019-06-28 Pat Name: ? IRIS GIL ? Department: ? Room: ? [id number] Gender: ? Female ? Shipping Support Clerk: ?? [place] : ?1955 ? Requested By: AMANDA MOORE Order Number: [id number] ? Reading : ?? Jonatan Aldrich ? Measurements Intervals ?[place] ? Rate: ? 70 ? P: ?54 HI: ? 168 ?QRS: ?-43 QRSD: ? 117 [...] Jonatan Aldrich MD - 06/28/2019 [facility] [place] [address] [facility] [place] Test Date: 2019-06-28 Pat Name: IRIS GIL Department: Room: [place] [address] Gender: Female Shipping Support Clerk: DIONICIO : 1955 Requested By: AMANDA MOORE Order Number: [id number] Reading MD: Jonatan Aldrich Measurements Intervals [place] Rate: 70 P: 54 HI: 168 QRS: -43 QRSD: 117 T: 127 [...] ECG ORDERABLES Final Result Performing Organization Address City/State/[facility] Co de Phone Number [facility] ([facility]) [facility] documented in this encounter Visit Diagnoses Diagnosis [...] Venkat Pak RN) 0919 (Given - Provider: Matri Estrada RN)2305 (Not Given - Provider: Venkat [...] documented as of this encounter Care Teams Logging Engineer Relationship Specialty Start Date End Date Don Branham MD [address] [place] [address] PCP - General EMERGENCY MEDICINE 05/10/19 Annamaria Swanson MD INTERNAL MEDICINE 12/10/18 documented as of this encounter
--- OUTSIDE RECORDS SUMMARY | 2024-02-27 03:26 | XMS_ITS | Encounter Summary ---
Author Organization [facility] Address [address] [place] [address]. [place], [place] [address] [place] [address] Care Team Providers Care Rv Mechanic Name Role Phone Damon Swanson MD Unavailable [phone] Don Branham MD Primary Care Provider [phone] Reason for Referral * Imaging (Routine) - Closed Specialty Diagnoses / Procedures Referred By Leif hilton Referred To Contact RADIOLOGY Diagnoses PVD (peripheral vascular disease) (CMS/HCC) Procedures XA AIF ANGIOGRAM Khalif Dang MD [address] [address] Phone: tel: fax: [place] [address] Phone: tel: Referral ID Status Reason Start Date Expiration Date Visits Re quested Visits Authorized [id number] Closed 07/05/2019 08/01/2020 1 1 Reason for Visit * Auth/Cert Specialty Diagnoses / Procedures Referred By Leif hilton Referred To Contact Diagnoses Encephalopathy Elevated troponin Encephalopathy acute Encephalopathy acute Referral ID Status Reason Start Date Expiration Date Visits Re quested Visits Authorized [id number] 1 1 Encounter Details Date Type Department Care Team (Late st Contact Info) Description 07/05/2019 12:48 PM CDT - 07/05/2019 11:59 PM CDT Hospital Encounter [facility] [place] [address] Khalif Dang MD Three [facility]. [address] [place], [place] [id number] Discharge Disposition: Home or Self Care (Routine [...] Visit Diagnoses Diagnosis PVD (peripheral vascular disease) ([facility]/HCC) Peripheral vascular disease, unspecified documented in this [...] documented as of this encounter Care Teams Rv Mechanic Relationship Specialty Start Date End Date Don Branham MD [address] [place] [address] PCP - General EMERGENCY MEDICINE 05/10/19 Damon Swanson MD INTERNAL MEDICINE 12/10/18 documented as of this encounter
--- OUTSIDE RECORDS SUMMARY | 2024-02-27 03:26 | XMS_ITS | Encounter Summary ---
Author Organization [facility] Address [address] [place] [address]. [place] [address] [place] [address] Care Team Providers Care Matzo Forming Machine Operator Name Role Phone Damon Swanson MD Unavailable [phone] Don Branham MD Primary Care Provider [phone] Encounter Details Date Type Department Care Team [...] documented as of this encounter Care Teams Matzo Forming Machine Operator Relationship Specialty Start Date End Date Don Branham MD [address] [place] [address] PCP - General EMERGENCY MEDICINE 05/10/19 Damon Swanson MD INTERNAL MEDICINE 12/10/18 documented as of this encounter
--- OUTSIDE RECORDS SUMMARY | 2024-02-27 03:26 | XMS_ITS | Encounter Summary ---
Author Organization [facility] Address [address] [place] [address]. [place] [address] [place] [address] Care Team Providers Care First Cook Name Role Phone Damon Swanson MD Unavailable [phone] Don Branham MD Primary Care Provider [phone] Reason for Referral * Imaging (Routine) - Closed Specialty Diagnoses / Procedures Referred By Contac t Referred To Contact RADIOLOGY Diagnoses PVD (peripheral vascular disease) (CMS/HCC) Procedures XA AIF ANGIOGRAM Khalif Dang MD [facility]. [facility] [address] [place] [address] Phone: tel: fax: [place] [address] Phone: tel: Referral ID Status Reason Start Date Expiration Date Visits Re quested Visits Authorized [id number] Closed 07/05/2019 08/01/2020 1 1 Encounter Details Date Type Department Care Team (Late st Contact Info) Description 07/03/2019 Orders Only [facility] at [facility], [address] [place] [address] Khalif Dang MD [facility]. [facility] [address] [place] [address] Social History Tobacco Use Types [...] documented as of this encounter Care Teams First Cook Relationship Specialty Start Date End Date Don Branham MD [address] [place] [address] PCP - General EMERGENCY MEDICINE 05/10/19 Damon Swanson MD INTERNAL MEDICINE 12/10/18 documented as of this encounter
--- OUTSIDE RECORDS SUMMARY | 2024-02-27 03:26 | XMS_ITS | Encounter Summary ---
Author Organization [facility] Address [address] [place] [address]. [place] [address] [place] [address] Care Team Providers Care Charging Board Operator Name Role Phone Damon Swanson MD Unavailable [phone] Don Branham MD Primary Care Provider [phone] Encounter Details Date Type Department Care Team [...] on filedocumented in this encounter Care Teams Charging Board Operator Relationship Specialty Start Date End Date Don Branham MD [address] [place] [address] PCP - General EMERGENCY MEDICINE 05/10/19 Damon Swanson MD INTERNAL MEDICINE 12/10/18 documented as of this encounter
--- OUTSIDE RECORDS SUMMARY | 2024-02-27 03:26 | XMS_ITS | Encounter Summary ---
Author Organization [facility] Address [address] [place] [address]. [place] [address] [place] [address] Care Team Providers Care Outreach Assistant Name Role Phone Damon Swanson MD Unavailable [phone] Don Branham MD Primary Care Provider [phone] Encounter Details Date Type Department Care Team [...] on filedocumented in this encounter Care Teams Outreach Assistant Relationship Specialty Start Date End Date Don Branham MD [address] [place] [address] PCP - General EMERGENCY MEDICINE 05/10/19 Damon Swanson MD INTERNAL MEDICINE 12/10/18 documented as of this encounter
--- OUTSIDE RECORDS SUMMARY | 2024-02-27 03:27 | XMS_ITS | Encounter Summary ---
Author Organization [facility] Address [address] [place] [address]. [place] [address] [place] [address] Care Team Providers Care Supervisor Riveting Name Role Phone Damon Swanson MD Unavailable [phone] Kimberley Durant MD Primary Care Provider [phone] Encounter Details Date Type Department Care Team [...] Assessment Author Status No 05/07/2019 5:32 PM SUPERVISOR FIBER LOCKING Activ e * RETIRED Are you blind or do you have serious difficulty seeing, even when wearing glasses? Answer Date of Assessment Author Status No 05/07/2019 5:32 PM SUPERVISOR FIBER LOCKING Activ e * Do you have serious [...] filedocumented in this encounter Care Teams Supervisor Riveting Relationship Specialty Start Date End Date Kimberley Durant MD [address] [place] [address] PCP - General INTERNAL MEDICINE 02/10/19 05/09/19 Damon Swanson MD INTERNAL MEDICINE 12/10/18 documented as of this encounter
--- OUTSIDE RECORDS SUMMARY | 2024-02-27 03:27 | XMS_ITS | Encounter Summary ---
Author Organization [facility] Address [address] [place] [address]. [place] [address] [place] [address] Care Team Providers Care Chemist Name Role Phone Cecilio Aldrich MD Primary Care Provider [phone] Damon Swanson MD Unavailable [phone] Encounter Details Date Type Department Care Team (Late st Contact Info) Description 12/31/2018 9:30 AM CDT Home Care Visit [address] [place] [address] Cris Lim, MANAGER SECONDARY PT HOME VISIT Social History Tobacco Use [...] rugs Therapies - Vitals Description: PT , case [...] raises. documented in this encounter Care Teams Chemist Relationship Specialty Start Date End Date Cecilio Aldrich MD [address] [place] [address] PCP - General PROCESS CONTROLLER 12/10/18 02/09/19 Damon Swanson MD [address] [place], [place] [id number] INTERNAL MEDICINE 12/10/18 documented as of this encounter
--- OUTSIDE RECORDS SUMMARY | 2024-02-27 03:27 | XMS_ITS | Encounter Summary ---
Author Organization [facility] Address [address] [place] [address]. [place], [place] [address] [place] [address] Care Team Providers Care Machine Crater Name Role Phone Cecilio Aldrich MD Primary Care Provider [phone] Damon Swanson MD Unavailable [phone] Encounter Details Date Type Department Care Team (Late st Contact Info) Description 12/26/2018 9:30 AM CDT Home Care Visit [address] [place] [address] Cris Lim, ACCOUNTS SPECIALIST PT HOME VISIT Social History Tobacco Use [...] changes or concerns reported to supervising therapist, therapeutic case manager, and/or provider. Therapies Vitals Met [...] each visit and report any changes to therapeutic case manager and/or supervising PT Problem:Therapies Medications [...] that Therapies - Vitals Description: PT , therapeutic case manager, and/or physician to be contacted [...] stretching documented in this encounter Care Teams Machine Crater Relationship Specialty Start Date End Date Cecilio Aldrich MD [address] [place] [address] PCP - General SHOP SUPERINTENDENT 12/10/18 02/09/19 Damon Swanson MD [address] [place] [address] INTERNAL MEDICINE 12/10/18 documented as of this encounter
--- OUTSIDE RECORDS SUMMARY | 2024-02-27 03:27 | XMS_ITS | Encounter Summary ---
Author Organization [facility] Address [address] [place] [address]. [place], [place] [address] [place] [address] Care Team Providers Care Earth Mover Name Role Phone Cecilio Aldrich MD Primary Care Provider [phone] Damon Swanson MD Unavailable [phone] Encounter Details Date Type Department Care Team (Latest Contact Info) Description 01/01/2019 4:30 PM CDT Home Care Visit [address] [place] [address] [place] [address] Daniela Harrington, CARTOON DESIGNER CARTOON DESIGNER HH/HOSPICE TELEPHONE ENCOUNTER/VISIT Social History Tobacco Use [...] Description Start Date Status Goals Interve ntions CARTOON DESIGNER Community Resource Planning Disciplines: Medical Social Work Assist with community resources 12/26/2018 Active 1 goal linked to scheduled/documen monalisa intervention 1 goal intervention scheduled/document ed in this visit Goals Goal Associated Problem Outcome Goal Met? Visit Notes CARTOON DESIGNER Community Resource Planning Description: Patient will move to assisted living/nursing facility of choice for so that level of care needs are better met by 01/22/19. CARTOON DESIGNER Community Resource Planning No Interventions Intervention Associated Problem/Goal Status Variance Visit Notes CARTOON DESIGNER community resource planning Description: CARTOON DESIGNER to assist with community resource planning related to more supportive living arrangement. Patient reports that she lives with her granddaughter, but she does not provide any assistance other than letting patient sleep on the couch and occasionally provides some food for patient. Patient reports that she is interested in moving to an assisted living/care home. Patient reports preference for [facility] in [place] and [facility] for assisted living and did not have a preference for nursing facility. CARTOON DESIGNER spoke with Sylvia Reynaga RN case manager who confirms that due to patient's inability to transfer independently, patient would be more appropriate for care home care over INTERMEDIATE care. CARTOON DESIGNER to contact area nursing facilities for bed availability to obtain fax number to insure patient's information if forwarded to those facilities for admission review. Problem:CARTOON DESIGNER Community Resource Planning Goal:CARTOON DESIGNER Community Resource Planning Scheduled documented in this encounter Care Teams Earth Mover Relationship Specialty Start Date End Date Cecilio Aldrich MD [address] [place] [address] PCP - General PORTABLE MACHINE SANDER 12/10/18 02/09/19 Damon Swanson MD [address] [place] [address] INTERNAL MEDICINE 12/10/18 documented as of this encounter
--- OUTSIDE RECORDS SUMMARY | 2024-02-27 03:27 | XMS_ITS | Encounter Summary ---
Author Organization [facility] Address [address] [place] [address]. [place] [address] [place] [address] Care Team Providers Care Airfreight Loading Supervisor Name Role Phone Cecilio Aldrich MD Primary Care Provider [phone] Damon Swanson MD Unavailable [phone] Encounter Details Date Type Department Care Team (Latest Contact Info) Description 01/09/2019 12:00 PM CDT Home Care Visit [address] [place] [address] [place] [address] Daniela Harrington, CHUCKING MACHINE SET UP OPERATOR TELEPHONE ENCOUNTER Social History Tobacco Use [...] on filedocumented in this encounter Care Teams Airfreight Loading Supervisor Relationship Specialty Start Date End Date Cecilio Aldrich MD [address] [place] [address] PCP - General BIOLOGY FACULTY MEMBER 9/30/19 11/30/19 Damon Swanson MD [address] [place] [address] INTERNAL MEDICINE 12/10/18 documented as of this encounter
--- OUTSIDE RECORDS SUMMARY | 2024-02-27 03:27 | XMS_ITS | Encounter Summary ---
Author Organization [facility] Address [address] [place] [address]. [place] [address] [place] [address] Care Team Providers Care Transformer Builder Name Role Phone Cecilio Aldrich MD Primary Care Provider [phone] Damon Swanson MD Unavailable [phone] Encounter Details Date Type Department Care Team (Late st Contact Info) Description 01/09/2019 8:00 AM CDT Home Care Visit [facility] Care [address] [place] [address] [place] [address] Deneen Wilkes, [address]EL [address] [place] [address] NICHOLS HOME VISIT Social History Tobacco Use [...] changes or concerns reported to supervising therapist, nurse case management and or provider. Therapies Vitals Met This [...] each isit and report any changes to nurse case management and/or supervising OT. Problem:Therapies Medications Goal:Therapies - [...] rug this date. Patient [facility] and she wants things like this, [...] Understanding verbalized. Therapies - Vitals Description: OT, nurse case management and/or physician to be contacted if pulse [...] couch. documented in this encounter Care Teams Transformer Builder Relationship Specialty Start Date End Date Cecilio Aldrich MD [address] [place] [address] PCP - General QUICK MIXER OPERATOR 12/10/18 02/09/19 Damon Swanson MD [address] [place] [address] INTERNAL MEDICINE 12/10/18 documented as of this encounter
--- OUTSIDE RECORDS SUMMARY | 2024-02-27 03:27 | XMS_ITS | Encounter Summary ---
Author Organization [facility] Address [address] [place] [address]. [place] [address] [place] [address] Care Team Providers Care Mattress And Foundation Sewer Name Role Phone Cecilio Aldrich MD Primary Care Provider [phone] Damon Swanson MD Unavailable [phone] Encounter Details Date Type Department Care Team (Late st Contact Info) Description 02/05/2019 [facility] at [address] [address] Scanned, Documents Social History Tobacco Use Types [...] on filedocumented in this encounter Care Teams Mattress And Foundation Sewer Relationship Specialty Start Date End Date Cecilio Aldrich MD [address] [place] [address] PCP - General FILLING CARRIER 12/10/18 02/09/19 Damon Swanson MD [address] [place] [address] INTERNAL MEDICINE 12/10/18 documented as of this encounter
--- OUTSIDE RECORDS SUMMARY | 2024-02-27 03:27 | XMS_ITS | Encounter Summary ---
Author Organization [facility] Address [address] [place] [address]. [place] [address] [place] [address] Care Team Providers Care Drier Unloader Name Role Phone Cecilio Aldrich MD Primary Care Provider [phone] Damon Swanson MD Unavailable [phone] Encounter Details Date Type Department Care Team (Late st Contact Info) Description 12/28/2018 9:30 AM CDT Home Care Visit [address] [place] [address] [place] [address] Deneen Wilkes, ON[address] [place] [address] CASE COMMUNICATION Social History Tobacco Use Types [...] on filedocumented in this encounter Care Teams Drier Unloader Relationship Specialty Start Date End Date Cecilio Aldrich MD [address] [place] [address] PCP - General BIG DATA HADOOP DEVELOPER 12/10/18 02/09/19 Damon Swanson MD [address] [place] [address] INTERNAL MEDICINE 12/10/18 documented as of this encounter
--- OUTSIDE RECORDS SUMMARY | 2024-02-27 03:27 | XMS_ITS | Encounter Summary ---
Author Organization [facility] Address [address] [place] [address]. [place] [address] [place] [address] Care Team Providers Care Talent Partner Name Role Phone Cecilio Aldrich MD Primary Care Provider [phone] Damon Swanson MD Unavailable [phone] Reason for Referral * Imaging (Routine) - Closed Specialty Diagnoses / Procedures Referred By Contac t Referred To Contact RADIOLOGY Diagnoses Chronic venous hypertension (idiopathic) with ulcer and inflammation of bilateral lower extremity (CODE) ([facility] HHS/HCC) Diabetic leg ulcer ([facility] HHS/HCC) Procedures MRI TIB+FIB LT WO CON Saranya Pichardo NP Referral ID Status Reason Start Date Expiration Date Visits Re quested Visits Authorized [id number] Closed 12/28/2018 01/27/2020 1 1 Encounter Details Date Type Department Care Team (Late st Contact Info) Description 12/28/2018 3:45 PM CDT Office Visit [facility] [place] [address] Babar Sullivan MD Freeman, Jessica, NP Social [...] uncontrolled documented in this encounter Care Teams Talent Partner Relationship Specialty Start Date End Date Cecilio Aldrich MD [address] [place] [address] PCP - General DATA MANAGEMENT ASSOCIATE 12/10/18 02/09/19 Damon Swanson MD [address] [place] [address] INTERNAL MEDICINE 12/10/18 documented as of this encounter
--- OUTSIDE RECORDS SUMMARY | 2024-02-27 03:27 | XMS_ITS | Encounter Summary ---
Author Organization [facility] Address [address] [place] [address]. [place] [address] [place] [address] Care Team Providers Care Ledger Clerk Name Role Phone Damon Swanson MD Unavailable [phone] Kimberley Durant MD Primary Care Provider [phone] Encounter Details Date Type Department Care Team (Late st Contact Info) Description 02/21/2019 3:15 PM INVESTMENT ACCOUNTANT Office Visit [facility] [address] [facility] [place] [address] Babar Sullivan MD Social History Tobacco Use [...] on filedocumented in this encounter Care Teams Ledger Clerk Relationship Specialty Start Date End Date Kimberley Durant MD [address] [place] [address] PCP - General INTERNAL MEDICINE 02/10/19 05/09/19 Damon Swanson MD INTERNAL MEDICINE 12/10/18 documented as of this encounter
--- OUTSIDE RECORDS SUMMARY | 2024-02-27 03:27 | XMS_ITS | Encounter Summary ---
Author Organization [facility] Address [address] [place] [address]. [place], [place] [address] [place] [address] Care Team Providers Care Irrigator Sprinkling System Name Role Phone Cecilio Aldrich MD Primary Care Provider [phone] Damon Swanson MD Unavailable [phone] Encounter Details Date Type Department Care Team (Late st Contact Info) Description 12/21/2018 9:00 AM CDT Home Care Visit [address] [place] [address] Cris Lim, SUPERVISOR TOY ASSEMBLY PT HOME VISIT Social History Tobacco Use [...] changes or concerns reported to supervising therapist, binder caser, and/or provider. Therapies Vitals No PT Gait [...] each visit and report any changes to binder caser and/or supervising PT Problem:Therapies Medications Goal:Therapies [...] commode Therapies - Vitals Description: PT , binder caser, and/or physician to be contacted if [...] le documented in this encounter Care Teams Irrigator Sprinkling System Relationship Specialty Start Date End Date Cecilio Aldrich MD [address] [place] [address] PCP - General DOUGHMAKER 12/10/18 02/09/19 Damon Swansno MD [address] [place] [address] INTERNAL MEDICINE 12/10/18 documented as of this encounter
--- OUTSIDE RECORDS SUMMARY | 2024-02-27 03:27 | XMS_ITS | Encounter Summary ---
Author Organization [facility] Address [address] [place] [address]. [place], [place] [address] [place] [address] Care Team Providers Care Post Tensioning Ironworker Name Role Phone Cecilio Aldrich MD Primary Care Provider [phone] Damon Swanson MD Unavailable [phone] Encounter Details Date Type Department Care Team (Latest Contact Info) Description 12/27/2018 4:15 PM CDT Home Care Visit [address] [place] [address] [place] [address] Daniela Harrington, MANDATE RETAIL SERVICE MERCHANDISER MANDATE RETAIL SERVICE MERCHANDISER HH/HOSPICE TELEPHONE ENCOUNTER/VISIT Social History Tobacco Use [...] Description Start Date Status Goals Interve ntions MANDATE RETAIL SERVICE MERCHANDISER Community Resource Planning Disciplines: Medical Social Work Assist with community resources 12/26/2018 Active 1 goal linked to scheduled/documen monalisa intervention 1 goal intervention scheduled/document ed in this visit Goals Goal Associated Problem Outcome Goal Met? Visit Notes MANDATE RETAIL SERVICE MERCHANDISER Community Resource Planning Description: Patient will move to assisted living/nursing facility of choice for so that level of care needs are better met by 01/22/19. MANDATE RETAIL SERVICE MERCHANDISER Community Resource Planning No Interventions Intervention Associated Problem/Goal Status Variance Visit Notes MANDATE RETAIL SERVICE MERCHANDISER community resource planning Description: MANDATE RETAIL SERVICE MERCHANDISER to assist with community resource planning related to more supportive living arrangement. Patient reports that she lives with her granddaughter, but she does not provide any assistance other than letting patient sleep on the couch and occasionally provides some food for patient. Patient reports that she is interested in moving to an assisted living/retirement. Patient reports preference for [facility] in [place] and [facility] for assisted living and did not have a preference for nursing facility. MANDATE RETAIL SERVICE MERCHANDISER spoke with Sylvia Reynaga RN case manager who confirms that due to patient's inability to transfer independently, patient would be more appropriate for retirement care over CORRECTION care. MANDATE RETAIL SERVICE MERCHANDISER to contact area nursing facilities for bed availability to obtain fax number to insure patient's information if forwarded to those facilities for admission review. Problem:MANDATE RETAIL SERVICE MERCHANDISER Community Resource Planning Goal:MANDATE RETAIL SERVICE MERCHANDISER Community Resource Planning Scheduled documented in this encounter Care Teams Post Tensioning Ironworker Relationship Specialty Start Date End Date Cecilio Aldrich MD [address] [place] [address] PCP - General CENTER MGR 12/10/18 02/09/19 Damon Swanson MD [address] [place] [address] INTERNAL MEDICINE 12/10/18 documented as of this encounter
--- OUTSIDE RECORDS SUMMARY | 2024-02-27 03:27 | XMS_ITS | Encounter Summary ---
Author Organization [facility] Address [address] [place] [address]. [place] [address] [place] [address] Care Team Providers Care Turn Supervisor Name Role Phone Damon Swanson MD Unavailable [phone] Kimberley Durant MD Primary Care Provider [phone] Encounter Details Date Type Department Care Team (Latest Contact Info) Description 02/12/2019 5:22 PM HEALTH INSPECTOR FOOD - 02/12/2019 11:59 PM [facility] Hospital Encounter [facility] [place] [address] Babar Sullivan MD Discharge Disposition: Home or [...] and inflammation of bilateral lower extremity (CODE) ([facility] HHS/HCC),Diabetic leg ulcer ([facility] HHS/HCC) Take 1 capsule (300 mg [...] WOUND, W/GRAM STAIN Routine 02/12/2019 5:22 PM HEALTH INSPECTOR FOOD Ulcer of lower extremity, limited to breakdown of skin, unspecified laterality ([facility] HHS/[facility]) documented in this encounter Results * CULTURE, WOUND, W/GRAM STAIN (02/12/2019 5:22 PM HEALTH INSPECTOR FOOD) SPEC DESCRIPTION LEG,LEFT 02/12/2019 5:23 PM HEALTH INSPECTOR FOOD [facility] SPECIAL REQUESTS NO SPECIAL REQUEST 02/12/2019 5:23 PM HEALTH INSPECTOR FOOD [facility] GRAM STAIN RESULT NO WHITE BLOOD CELLS SEEN 02/13/2019 9:05 AM HEALTH INSPECTOR FOOD [facility] GRAM STAIN RESULT RARE RED BLOOD CELLS SEEN 02/13/2019 9:05 AM [facility] GRAM STAIN RESULT NO ORGANISMS SEEN 02/13/2019 9:05 AM [facility] CULTURE RESULT NO GROWTH 3 DAYS 02/15/2019 9:05 AM [facility] CULTURE RESULT NOTE: WOUND AND TISSUE CULTURES ARE ROUTINELY SCREENED FOR AEROBIC ORGANISMS ONLY. 02/15/2019 9:05 AM HEALTH INSPECTOR FOOD [facility] STRUCTURE OF LEFT LOWER LIMB / Unknown 02/12/2019 5:22 PM HEALTH INSPECTOR FOOD 02/12/2019 5:44 PM HEALTH INSPECTOR FOOD Babar Sullivan MD MICROBIOLOGY - GENERAL ORDERABLE S Final Result [facility] [address] [place] [address], documented in this encounter Visit Diagnoses Diagnosis Ulcer of lower extremity, limited to breakdown of skin, unspecified laterality ([facility]/HCC [facility]) documented in this encounter Care Teams Turn Supervisor Relationship Specialty Start Date End Date Kimberley Durant MD [address] [place] [address] PCP - General INTERNAL MEDICINE 02/10/19 05/09/19 Damon Swanson MD INTERNAL MEDICINE 12/10/18 documented as of this encounter
--- OUTSIDE RECORDS SUMMARY | 2024-02-27 03:27 | XMS_ITS | Encounter Summary ---
Author Organization [facility] Address [address] [place] [address]. [place] [address] [place] [address] Care Team Providers Care Payroll Accounting Manager Name Role Phone Cecilio Aldrich MD Primary Care Provider [phone] Damon Swanson MD Unavailable [phone] Encounter Details Date Type Department Care Team (Late st Contact Info) Description 01/04/2019 8:00 AM CDT Home Care Visit [facility] Care [address] [place] [address] Deneen Wilkes, ON[address] [place] [address] NICHOLS HOME VISIT Social History Tobacco Use [...] changes or concerns reported to supervising therapist, telephonic case manager and or provider. Therapies Vitals [...] each isit and report any changes to telephonic case manager and/or supervising OT. Problem:Therapies Medications [...] Understanding verbalized. Therapies - Vitals Description: OT, telephonic case manager and/or physician to be contacted [...] SBA. documented in this encounter Care Teams Payroll Accounting Manager Relationship Specialty Start Date End Date Cecilio Aldrich MD [address] [place] [address] PCP - General SALESPERSON FLOOR COVERINGS 12/10/18 02/09/19 Damon Swanson MD [address] [place] [address] INTERNAL MEDICINE 12/10/18 documented as of this encounter
--- OUTSIDE RECORDS SUMMARY | 2024-02-27 03:27 | XMS_ITS | Encounter Summary ---
Author Organization [facility] Address [address] [place] [address]. [place] [address] [place] [address] Care Team Providers Care Basket Assembler Name Role Phone Cecilio Aldrich MD Primary Care Provider [phone] Damon Swanson MD Unavailable [phone] Encounter Details Date Type Department Care Team (Late st Contact Info) Description 12/25/2018 3:00 PM CDT Home Care Visit [address] [place] [address] [place] [address] Adele Zamora RN [phone] (Work) AIDE HOME VISIT Social History [...] Notes Hygiene Needs Met with Assist of CHEMIST INTERN Description: Hygiene and safety needs will be met with assist of CHEMIST INTERN by 02/14/19. Client will progress towards increased independence in performance of self cares. Aide for personal cares/mobility/ADL's Met This Shift No Interventions Intervention Associated Problem/Goal Status Variance Visit Notes Aide Communication tool Description: Complete CHEMIST INTERN communication Problem:Aide for personal cares/mobility/ADL's Goal:Hygiene Needs Met with Assist of CHEMIST INTERN Completed Last BM Date: 12/25/18 Shampoo: No Bathing: Partial Nail Care: No Clothing change: Yes Bruised, open or red areas: None noted Nurse notified or aware: Yes Aide assist with shampoo Description: Assist with shampooing hair Problem:Aide for personal cares/mobility/ADL's Goal:Hygiene Needs Met with Assist of CHEMIST INTERN Completed Aide cleanse perineal Description: Cleanse perineal area Problem:Aide for personal cares/mobility/ADL's Goal:Hygiene Needs Met with Assist of CHEMIST INTERN Completed Aide personal care Description: Personal Care: shampoo hair, brush teeth, skin care and apply cream/lotion Problem:Aide for personal cares/mobility/ADL's Goal:Hygiene Needs Met with Assist of CHEMIST INTERN Completed Aide inspect skin Description: Inspect skin for signs of pressure or irritation. After bathing reapply moisturizer and moisture barrier. Report any observed or patient reported concerns to RN. Problem:Aide for personal cares/mobility/ADL's Goal:Hygiene Needs Met with Assist of CHEMIST INTERN Completed Aide tub/shower bath Description: Assistance with bathing using tub, hand-held shower and bath bench. Clean shower after bathing. Problem:Aide for personal cares/mobility/ADL's Goal:Hygiene Needs Met with Assist of CHEMIST INTERN Completed documented in this encounter Care Teams Basket Assembler Relationship Specialty Start Date End Date Cecilio Aldrich MD [address] [place], [place] [id number] PCP - General GOLD STAMPER 12/10/18 02/09/19 Damon Swanson MD [address] [place], [place] [id number] INTERNAL MEDICINE 12/10/18 documented as of this encounter
--- OUTSIDE RECORDS SUMMARY | 2024-02-27 03:27 | XMS_ITS | Encounter Summary ---
Author Organization [facility] Address [address] [place] [address]. [place] [address] [place] [address] Care Team Providers Care Molder Meat Name Role Phone Cecilio Aldrich MD Primary Care Provider [phone] Damon Swanson MD Unavailable [phone] Encounter Details Date Type Department Care Team (Late st Contact Info) Description 01/08/2019 2:15 PM CDT Office Visit [facility] [address] [place] [address] Babar Sullivan MD Social History Tobacco Use [...] on filedocumented in this encounter Care Teams Molder Meat Relationship Specialty Start Date End Date Cecilio Aldrich MD [address] [place] [address] PCP - General FENCE POST CUTTER 12/10/18 02/09/19 Damon Swanson MD [address] [place] [address] INTERNAL MEDICINE 12/10/18 documented as of this encounter
--- OUTSIDE RECORDS SUMMARY | 2024-02-27 03:27 | XMS_ITS | Encounter Summary ---
Author Organization [facility] Address [address] [place] [address]. [place] [address] [place] [address] Care Team Providers Care Engineering Inspection Assistant Name Role Phone Cecilio Aldrich MD Primary Care Provider [phone] Damon Swanson MD Unavailable [phone] Reason for Referral * Surgical (Routine) - Closed Specialty Diagnoses / Procedures Referred By Contza t Referred To Contact VASCULAR SURGERY Diagnoses Peripheral arterial disease (CMS/HCC) Babar Sullivan MD Referral ID Status Reason Start Date Expiration Date V isits Requested Visits Authorized [id number] Closed Specialty Services 01/15/2019 02/14/2020 1 1 PER Encounter Details Date Type Department Care Team (Late st Contact Info) Description 01/15/2019 11:30 AM SHIPPER Office Visit [facility] [address] [facility] [place] [address] Babar Sullivan MD Social History Tobacco Use [...] unspecified documented in this encounter Care Teams Engineering Inspection Assistant Relationship Specialty Start Date End Date Cecilio Aldrich MD [address] [place], [place] [phone] PCP - General SOCIAL MEDIA INTERN 12/10/18 02/09/19 Damon Swanson MD [address] [place], [place] [id number] INTERNAL MEDICINE 12/10/18 documented as of this encounter
--- OUTSIDE RECORDS SUMMARY | 2024-02-27 03:27 | XMS_ITS | Encounter Summary ---
Author Organization [facility] Address [address] [place] [address]. [place] [address] [place] [address] Care Team Providers Care Electronic Gaming Device Supervisor Name Role Phone Damon Swanson MD Unavailable [phone] Kimberley Durant MD Primary Care Provider [phone] Encounter Details Date Type Department Care Team (Late st Contact Info) Description 02/26/2019 [facility] at [address] [address] Scanned, Documents Social History Tobacco Use Types [...] on filedocumented in this encounter Care Teams Electronic Gaming Device Supervisor Relationship Specialty Start Date End Date Kimberley Durant MD [address] [place] [address] PCP - General INTERNAL MEDICINE 02/10/19 05/09/19 Damon Swanson MD INTERNAL MEDICINE 12/10/18 documented as of this encounter
--- OUTSIDE RECORDS SUMMARY | 2024-02-27 03:27 | XMS_ITS | Encounter Summary ---
Author Organization [facility] Address [address] [place] [address]. [place] [address] [place] [address] Care Team Providers Care Unscrambler Name Role Phone Cecilio Aldrich MD Primary Care Provider [phone] Damon Swanson MD Unavailable [phone] Encounter Details Date Type Department Care Team (Late st Contact Info) Description 01/11/2019 Home Care Visit [facility] Home Care [address] [place] [address] [place] [address] Angeline Mejia, OT [address] [place] [address] CASE COMMUNICATION Social History Tobacco [...] on filedocumented in this encounter Care Teams Unscrambler Relationship Specialty Start Date End Date Cecilio Aldrich MD [address] [place] [address] PCP - General MAGNETIC RESONANCE TECHNOLOGIST 12/10/18 02/09/19 Damon Swanson MD [address] [place] [address] INTERNAL MEDICINE 12/10/18 documented as of this encounter
--- OUTSIDE RECORDS SUMMARY | 2024-02-27 03:27 | XMS_ITS | Encounter Summary ---
Author Organization [facility] Address [address] [place] [address]. [place], [place] [address] [place] [address] Care Team Providers Care Hypercil Core Transformer Assembler Name Role Phone Cecilio Aldrich MD Primary Care Provider [phone] Damon Swanson MD Unavailable [phone] Encounter Details Date Type Department Care Team (Latest Contact Info) Description 12/28/2018 11:30 AM CDT Home Care Visit [address] [place] [address] [place] [address] Daniela Harrington, ACCESS SERVICES ASSISTANT ACCESS SERVICES ASSISTANT HH/HOSPICE TELEPHONE ENCOUNTER/VISIT Social History Tobacco Use [...] Description Start Date Status Goals Interve ntions ACCESS SERVICES ASSISTANT Community Resource Planning Disciplines: Medical Social Work Assist with community resources 12/26/2018 Active 1 goal linked to scheduled/documen monalisa intervention 1 goal intervention scheduled/document ed in this visit Goals Goal Associated Problem Outcome Goal Met? Visit Notes ACCESS SERVICES ASSISTANT Community Resource Planning Description: Patient will move to assisted living/nursing facility of choice for so that level of care needs are better met by 01/22/19. ACCESS SERVICES ASSISTANT Community Resource Planning No Interventions Intervention Associated Problem/Goal Status Variance Visit Notes ACCESS SERVICES ASSISTANT community resource planning Description: ACCESS SERVICES ASSISTANT to assist with community resource planning related to more supportive living arrangement. Patient reports that she lives with her granddaughter, but she does not provide any assistance other than letting patient sleep on the couch and occasionally provides some food for patient. Patient reports that she is interested in moving to an assisted living/fci. Patient reports preference for [facility] in [place] and [facility] for assisted living and did not have a preference for nursing facility. ACCESS SERVICES ASSISTANT spoke with Syliva Reynaga RN case manager who confirms that due to patient's inability to transfer independently, patient would be more appropriate for fci care over [facility] care. ACCESS SERVICES ASSISTANT to contact area nursing facilities for bed availability to obtain fax number to insure patient's information if forwarded to those facilities for admission review. Problem:ACCESS SERVICES ASSISTANT Community Resource Planning Goal:ACCESS SERVICES ASSISTANT Community Resource Planning Scheduled documented in this encounter Care Teams Hypercil Core Transformer Assembler Relationship Specialty Start Date End Date Cecilio Aldrich MD [address] [place] [address] PCP - General ROLL SHEETING CUTTER 12/10/18 02/09/19 Damon Swanson MD [address] [place] [address] INTERNAL MEDICINE 12/10/18 documented as of this encounter
--- OUTSIDE RECORDS SUMMARY | 2024-02-27 03:27 | XMS_ITS | Encounter Summary ---
Author Organization [facility] Address [address] [place] [address]. [place] [address] [place] [address] Care Team Providers Care Splitting Machine Operator Helper Name Role Phone Cecilio Aldrich MD Primary Care Provider [phone] Damon Swanson MD Unavailable [phone] Encounter Details Date Type Department Care Team (Late st Contact Info) Description 01/29/2019 1:45 PM MARKING STITCHER Office Visit [facility] [address] [place] [address] Babar Sullivan MD Social History Tobacco Use [...] on filedocumented in this encounter Care Teams Splitting Machine Operator Helper Relationship Specialty Start Date End Date Cecilio Aldrich MD [address] [place] [address] PCP - General ASSOCIATE PROPERTY MANAGER 12/10/18 02/09/19 Damon Swanson MD [address] [place] [address] INTERNAL MEDICINE 12/10/18 documented as of this encounter
--- OUTSIDE RECORDS SUMMARY | 2024-02-27 03:27 | XMS_ITS | Encounter Summary ---
Author Organization [facility] Address [address] [place] [address]. [place], [place] [address] [place] [address] Care Team Providers Care Cloth Dyer Name Role Phone Cecilio Aldrich MD Primary Care Provider [phone] Damon Swanson MD Unavailable [phone] Reason for Visit * Reason Comments Wound Encounter Details Date Type Department Care Team (Late st Contact Info) Description 12/28/2018 8:00 AM CDT Home Care Visit [facility] Care [address] [place] [address] Adele Zamora RN [phone] (Work) SN HOME VISIT Social History [...] Visit Type -SN - Home Visit Discipline -Assisted Problems Problem Description Start Date Status Goals Interve ntions Discharge Planning Disciplines: Assisted Discharge Planning 12/19/2018 Active 1 goal linked to scheduled/docume nted intervention 1 goal intervention scheduled/documen monalisa in this visit Care Coordination Disciplines: Assisted Management and coordination of patient care 12/19/2018 Active 1 goal linked to scheduled/docume nted intervention 2 goal interventions scheduled/documen monalisa in this visit Homebound Status Disciplines: Assisted Patient meets requirements of homebound status as evidenced by 02/1412/19/2018 Active 1 goal linked to scheduled/docume nted intervention 1 problem intervention scheduled/documen monalisa in this visit A Plan for Next Visit Disciplines: Assisted Plan for next visit 12/19/2018 Active 1 goal linked to scheduled/docume nted intervention 1 goal intervention scheduled/documen monalisa in this visit Home Safety Disciplines: Assisted Management and evaluation of patient's home environment 12/19/2018 Active 1 goal linked to scheduled/docume nted intervention 3 goal interventions scheduled/documen monalisa in this visit Medications Disciplines: Assisted Management of home medications 12/19/2018 Active 1 goal linked to scheduled/docume nted intervention 3 goal interventions scheduled/documen monalisa in this visit Blood Glucose Monitoring Disciplines: Assisted Skilled assessment and evaluation of blood glucose monitoring 12/19/2018 Active 1 goal linked to scheduled/docume nted intervention 2 goal interventions scheduled/documen monalisa in this visit Management and Evaluation of the Care Plan Disciplines: Assisted SN for management and evaluation of skilled services 12/19/2018 Active 1 goal linked to scheduled/docume nted intervention 1 goal intervention scheduled/documen monalisa in this visit Home Health Aide Supervisory Visit Disciplines: Assisted Supervision of HH Aide, SANITARY [place] MACHINE TENDER or NICHOLS 12/19/2018 Active 1 goal linked to scheduled/docume nted intervention 1 goal intervention scheduled/documen monalisa in this visit Nutritional concerns Disciplines: Assisted Inadequate/imbala nced nutritional concerns 12/19/2018 Active 1 goal linked to scheduled/docume nted intervention 1 goal intervention scheduled/documen monalisa in this visit Pulse Oximetry Disciplines: Assisted Skilled assessment and monitoring of O2 saturations. 12/19/2018 Active 1 goal linked to scheduled/docume nted intervention 1 goal intervention scheduled/documen monalisa in this visit Wound Care Disciplines: Assisted Alteration in skin integrity 12/19/2018 Active 1 [...] and family that patient was accepted at [facility] and [facility]hab Patient meets homebound requirements Description: [...] plan is to have Archanaa in the detention Remain Safe in Home Description: Patient will [...] Care Plan Met This Shift No SN SILK SCREEN OPERATOR Supervision Description: RN to supervise Home [...] . Problem:Home Health Aide Supervisory Visit Goal:SN SILK SCREEN OPERATOR Supervision Completed Instruct diet Description: Instruct [...] Completed documented in this encounter Care Teams Cloth Dyer Relationship Specialty Start Date End Date Cecilio Aldrich MD [address] [place] [address] PCP - General GEAR CHANGER 12/10/18 02/09/19 Damon Swanson MD [address] [place] [address] INTERNAL MEDICINE 12/10/18 documented as of this encounter
--- OUTSIDE RECORDS SUMMARY | 2024-02-27 03:27 | XMS_ITS | Encounter Summary ---
Author Organization [facility] Address [address] [place] [address]. [place], [place] [address] [place] [address] Care Team Providers Care Manager Technical Services Name Role Phone Cecilio Aldrich MD Primary Care Provider [phone] Damon Swanson MD Unavailable [phone] Reason for Visit * Reason Comments Diabetes Encounter Details Date Type Department Care Team (Late st Contact Info) Description 12/19/2018 8:00 AM CDT Home Care Visit [facility] Care [address] [place] [address] Adele Zamora RN [phone] (Work) SN HOME VISIT Social History [...] Visit Type -SN - Home Visit Discipline -Mcfp Problems Problem Description Start Date Status Goals Interve ntions Discharge Planning Disciplines: Mcfp Discharge Planning 12/19/2018 Active 1 goal linked to scheduled/docume nted intervention 1 goal intervention scheduled/documen monalisa in this visit Care Coordination Disciplines: Mcfp Management and coordination of patient care 12/19/2018 Active 1 goal linked to scheduled/docume nted intervention 2 goal interventions scheduled/documen monalisa in this visit Homebound Status Disciplines: Mcfp Patient meets requirements of homebound status as evidenced by 02/1412/19/2018 Active 1 goal linked to scheduled/docume nted intervention 1 problem intervention scheduled/documen monalisa in this visit A Plan for Next Visit Disciplines: Mcfp Plan for next visit 12/19/2018 Active 1 goal linked to scheduled/docume nted intervention 1 goal intervention scheduled/documen monalisa in this visit Home Safety Disciplines: Mcfp Management and evaluation of patient's home environment 12/19/2018 Active 1 goal linked to scheduled/docume nted intervention 3 goal interventions scheduled/documen monalisa in this visit Medications Disciplines: Mcfp Management of home medications 12/19/2018 Active 1 goal linked to scheduled/docume nted intervention 3 goal interventions scheduled/documen monalisa in this visit Blood Glucose Monitoring Disciplines: Mcfp Skilled assessment and evaluation of blood glucose monitoring 12/19/2018 Active 1 goal linked to scheduled/docume nted intervention 2 goal interventions scheduled/documen monalisa in this visit Management and Evaluation of the Care Plan Disciplines: Mcfp SN for management and evaluation of skilled services 12/19/2018 Active 1 goal linked to scheduled/docume nted intervention 1 goal intervention scheduled/documen monalisa in this visit Home Health Aide Supervisory Visit Disciplines: Mcfp Supervision of HH Aide, PRESALES SENIOR SPECIALIST or NICHOLS 12/19/2018 Active 1 goal linked to scheduled/docume nted intervention 1 goal intervention scheduled/documen monalisa in this visit Nutritional concerns Disciplines: Mcfp Inadequate/imbala nced nutritional concerns 12/19/2018 Active 1 goal linked to scheduled/docume nted intervention 1 goal intervention scheduled/documen monalisa in this visit Pulse Oximetry Disciplines: Mcfp Skilled assessment and monitoring of O2 saturations. 12/19/2018 Active 1 goal linked to scheduled/docume nted intervention 1 goal intervention scheduled/documen monalisa in this visit Wound Care Disciplines: Mcfp Alteration in skin integrity 12/19/2018 Active 1 [...] Care Plan Met This Shift No SN TIRE STRIPPER Supervision Description: RN to supervise Home Health [...] . Problem:Home Health Aide Supervisory Visit Goal:SN TIRE STRIPPER Supervision Completed Instruct diet Description: Instruct on [...] Completed documented in this encounter Care Teams Manager Technical Services Relationship Specialty Start Date End Date Cecilio Aldrich MD [address] [place] [address] PCP - General MOTOR SCOOTER MECHANIC 12/10/18 02/09/19 Damon Swanson MD [address] [place] [address] INTERNAL MEDICINE 12/10/18 documented as of this encounter
--- OUTSIDE RECORDS SUMMARY | 2024-02-27 03:27 | XMS_ITS | Encounter Summary ---
Author Organization [facility] Address [address] [place] [address]. [place], [place] [address] [place] [address] Care Team Providers Care Sewing Machinist Name Role Phone Cecilio Aldrich MD Primary Care Provider [phone] Damon Swanson MD Unavailable Encounter Details Date Type Department Care Team (Latest Contact Info) Description 01/04/2019 8:45 AM CDT Home Care Visit [address] [place] [address] Daniela Harrington, TROUSSEAU CONSULTANT TROUSSEAU CONSULTANT HH/HOSPICE TELEPHONE ENCOUNTER/VISIT Social History Tobacco Use [...] Description Start Date Status Goals Interve ntions TROUSSEAU CONSULTANT Community Resource Planning Disciplines: Medical Social Work Assist with community resources 12/26/2018 Active 1 goal linked to scheduled/documen monalisa intervention 1 goal intervention scheduled/document ed in this visit Goals Goal Associated Problem Outcome Goal Met? Visit Notes TROUSSEAU CONSULTANT Community Resource Planning Description: Patient will move to assisted living/nursing facility of choice for so that level of care needs are better met by 01/22/19. TROUSSEAU CONSULTANT Community Resource Planning No Interventions Intervention Associated Problem/Goal Status Variance Visit Notes TROUSSEAU CONSULTANT community resource planning Description: TROUSSEAU CONSULTANT to assist with community resource planning related to more supportive living arrangement. Patient reports that she lives with her granddaughter, but she does not provide any assistance other than letting patient sleep on the couch and occasionally provides some food for patient. Patient reports that she is interested in moving to an assisted living/jail. Patient reports preference for [facility] in [place] and [facility] for assisted living and did not have a preference for nursing facility. TROUSSEAU CONSULTANT spoke with Sylvia Reynaga RN case manager who confirms that due to patient's inability to transfer independently, patient would be more appropriate for jail care over [facility] care. TROUSSEAU CONSULTANT to contact area nursing facilities for bed availability to obtain fax number to insure patient's information if forwarded to those facilities for admission review. Problem:TROUSSEAU CONSULTANT Community Resource Planning Goal:TROUSSEAU CONSULTANT Community Resource Planning Scheduled documented in this encounter Care Teams Sewing Machinist Relationship Specialty Start Date End Date Cecilio Aldrich MD [address] [place] [address] PCP - General PACS ADMINISTRATOR 12/10/18 02/09/19 Damon Swanson MD [address] [place] [address] INTERNAL MEDICINE 12/10/18 documented as of this encounter
--- OUTSIDE RECORDS SUMMARY | 2024-02-27 03:27 | XMS_ITS | Encounter Summary ---
Author Organization [facility] Address [address] [place] [address]. [place] [address] [place] [address] Care Team Providers Care Field Observer Name Role Phone Cecilio Aldrich MD Primary Care Provider Damon Swanson MD Unavailable [phone] Encounter Details Date Type Department Care Team (Latest Contact Info) Description 12/28/2018 5:00 PM CDT - 12/28/2018 11:59 PM CDT Hospital Encounter [facility] [address] [facility] [facility] [address] Saranya Pichardo NP Discharge Disposition: Home or [...] and inflammation of bilateral lower extremity (CODE) ([facility] HHS/HCC) Diabetic leg ulcer ([facility] HHS/HCC) Type II or unspecified type diabetes mellitus with other specified manifestations, not stated as uncontrolled documented in this encounter Care Teams Field Observer Relationship Specialty Start Date End Date Cecilio Aldrich MD [address] [place] [address] PCP - General ADMINISTRATIVE OFFICER 12/10/18 02/09/19 Damon Swanson MD [address] [place] [address] INTERNAL MEDICINE 12/10/18 documented as of this encounter
--- OUTSIDE RECORDS SUMMARY | 2024-02-27 03:27 | XMS_ITS | Encounter Summary ---
Author Organization [facility] Address [address] [place] [address]. [place] [address] [place] [address] Care Team Providers Care Water Conservationist Name Role Phone Cecilio Aldrich MD Primary Care Provider [phone] Damon Swanson MD Unavailable [phone] Reason for Referral * Imaging (Routine) - Closed Specialty Diagnoses / Procedures Referred By Contac t Referred To Contact RADIOLOGY Diagnoses Chronic venous hypertension (idiopathic) with ulcer and inflammation of bilateral lower extremity (CODE) (CMS/HCC HHS/HCC) Procedures USV VENOUS REFLUX LOW BRENDON Babar Sullivan MD Referral ID Status Reason Start Date Expiration Date Visits Re quested Visits Authorized [id number] Closed 12/20/2018 01/20/2020 1 1 * Imaging (Routine) - Closed Specialty Diagnoses / Procedures Referred By Contac t Referred To Contact RADIOLOGY Diagnoses Peripheral arterial disease ([facility]/HCC) Procedures USV ART REST W ZAYNAB LOW EXT Babar Sullivan MD Referral ID Status Reason Start Date Expiration Date Visits Re quested Visits Authorized [id number] Closed 12/20/2018 01/20/2020 1 1 Reason for Visit * Imaging (Routine) - Closed Specialty Diagnoses / Procedures Referred By Contac t Referred To Contact RADIOLOGY Diagnoses Peripheral arterial disease ([facility]/HCC) Procedures USV ART REST W ZAYNAB LOW EXT Babar Sullivan MD Referral ID Status Reason Start Date Expiration Date Visits Re quested Visits Authorized [id number] Closed 12/20/2018 01/20/2020 1 1 Encounter Details Date Type Department Care Team (Latest Contact Info) Description 01/08/2019 9:00 AM CDT - 01/08/2019 9:56 AM CDT Hospital Encounter [facility] [place] [address] Babar Sullivan MD Discharge Disposition: Home or [...] and inflammation of bilateral lower extremity (CODE) ([facility] HHS/HCC),Diabetic leg ulcer ([facility] HHS/HCC) Take 1 capsule (300 mg [...] 0 AM CDT Narrative 02/06/2024 11:51 AM LICENSED INVESTMENT SALES ASSISTANT ?VENOUS DUPLEX IMAGING ?BILATERAL LOWER EXTREMITY ? VASCULAR LAB Pat.Name: ??IRIS GIL ? Pat.ID: ?[id number] ? St.Date: ?? 01/08/2019 ?Refer.: ??Cecilio Aldrich [...] 8 AM CDT Narrative 01/15/2019 10:32 PM LICENSED INVESTMENT SALES ASSISTANT ?ARTERIAL DOPPLER - ZAYNAB ?BILATERAL LOWER EXTREMITY ? VASCULAR LAB Pat.Name: ??IRIS GIL ? Pat.ID: ?[id number] ? St.Date: ?? 01/08/2019 ?Refer.: ??Cecilio Aldrich [...] ?? Right Anterior ?? 16.7 cm/s ? RAG BALER ?? Right RAG BALER Right ?? 111 cm/s ? Left RAG BALER Left V ? 0 ? Left RAG BALER Left P ?? 116 cm/s ? Peroneal [...] EXTREMITY VASCULAR LAB Pat.Name: IRIS GIL Pat.ID: [id number] .Date: 01/08/2019 Refer.MD: Cecilio Aldrich Exam Time: [...] DOPPLER Anterior Tibial Right Anterior 16.7 cm/s RAG BALER Right RAG BALER Right 111 cm/s Left RAG BALER Left V 0 Left RAG BALER Left P 116 cm/s Peroneal Right Peroneal [...] HHS/HCC) documented in this encounter Care Teams Water Conservationist Relationship Specialty Start Date End Date Cecilio Aldrich MD [address] [place] [address] PCP - General PROGRAMMER NUMERICAL CONTROL 12/10/18 02/09/19 Damon Swanson MD [address] [place] [address] INTERNAL MEDICINE 12/10/18 documented as of this encounter
--- OUTSIDE RECORDS SUMMARY | 2024-02-27 03:27 | XMS_ITS | Encounter Summary ---
Author Organization [facility] Address [address] [place] [address]. [place] [address] [place] [address] Care Team Providers Care Frozen Food Selector Name Role Phone Damon Swanson MD Unavailable [phone] Kimberley Durant MD Primary Care Provider [phone] Encounter Details Date Type Department Care Team (Late st Contact Info) Description 03/01/2019 11:30 AM MEDICAL AIDE Office Visit [facility] [address] [place] [address] Babar Sullivan MD Social History Tobacco Use [...] on filedocumented in this encounter Care Teams Frozen Food Selector Relationship Specialty Start Date End Date Kimberley Durant MD [address] [place] [address] PCP - General INTERNAL MEDICINE 02/10/19 05/09/19 Damon Swanson MD INTERNAL MEDICINE 12/10/18 documented as of this encounter
--- OUTSIDE RECORDS SUMMARY | 2024-02-27 03:27 | XMS_ITS | Encounter Summary ---
Author Organization [facility] Address [address] [place] [address]. [place] [address] [place] [address] Care Team Providers Care Fiscal Assistant Name Role Phone Cecilio Aldrich MD Primary Care Provider [phone] Damon Swanson MD Unavailable [phone] Encounter Details Date Type Department Care Team (Latest Contact Info) Description 12/19/2018 9:30 AM CDT Home Care Visit [address] [place] [address] Leydi Harmon, PT [address] [place] [address] PT INITIAL EVALUATION Social History Tobacco Use [...] changes or concerns reported to supervising therapist, caseworker protective services, and/or provider. Therapies Vitals Met This Shift [...] each visit and report any changes to caseworker protective services and/or supervising PT Problem:Therapies Medications Goal:Therapies - [...] understanding. Therapies - Vitals Description: PT , caseworker protective services, and/or physician to be contacted if pulse [...] adduction. documented in this encounter Care Teams Fiscal Assistant Relationship Specialty Start Date End Date Cecilio Aldrich MD [address] [place] [address] PCP - General CASTING SUPERVISOR 12/10/18 02/09/19 Damon Swanson MD [address] [place] [address] INTERNAL MEDICINE 12/10/18 documented as of this encounter
--- OUTSIDE RECORDS SUMMARY | 2024-02-27 03:27 | XMS_ITS | Encounter Summary ---
Author Organization [facility] Address [address] [place] [address]. [place], [place] [id number] [place] [id number] Care Team Providers Care University Counselor Name Role Phone Cecilio Aldrich MD Primary Care Provider [phone] Damon Swanson MD Unavailable [phone] Encounter Details Date Type Department Care Team (Latest Contact Info) Description 12/26/2018 1:15 PM CDT Home Care Visit [address] [place] [address] [place] [address] Daniela Harrington, DENTAL TECHNICIAN INSTRUCTOR DENTAL TECHNICIAN INSTRUCTOR INITIAL EVALUATION Social History Tobacco Use Types [...] - Care Plan Visit Details Visit Type -DENTAL TECHNICIAN INSTRUCTOR - Initial Ev aluation Discipline -Medical Social Work Problems Problem Description Start Date Status Goals Interve ntions Homebound Status Disciplines: Medical Social Work Patient meets requirements of homebound status as evidenced by high fall risk, requires assistance for transfers, unable to leave home safely without assistance. 12/26/2018 Active 1 goal linked to scheduled/documen monalisa intervention DENTAL TECHNICIAN INSTRUCTOR Community Resource Planning Disciplines: Medical Social Work Assist with community resources 12/26/2018 Active 1 goal linked to scheduled/documen monalisa intervention 1 goal intervention scheduled/document ed in this visit Goals Goal Associated Problem Outcome Goal Met? Visit Notes DENTAL TECHNICIAN INSTRUCTOR - Homebound Status Description: Patient meets requirements of homebound status as evidenced by high fall risk, requires assistance for transfers, unable to leave home safely without assistance. Homebound Status Progressing No DENTAL TECHNICIAN INSTRUCTOR Community Resource Planning Description: Patient will move to assisted living/nursing facility of choice for so that level of care needs are better met by 01/22/19. DENTAL TECHNICIAN INSTRUCTOR Community Resource Planning Progressing No Interventions Intervention Associated Problem/Goal Status Variance Visit Notes DENTAL TECHNICIAN INSTRUCTOR community resource planning Description: DENTAL TECHNICIAN INSTRUCTOR to assist with community resource planning related to more supportive living arrangement. Patient reports that she lives with her granddaughter, but she does not provide any assistance other than letting patient sleep on the couch and occasionally provides some food for patient. Patient reports that she is interested in moving to an assisted living/fpc. Patient reports preference for [facility] in [place] and [facility] for assisted living and did not have a preference for nursing facility. DENTAL TECHNICIAN INSTRUCTOR spoke with Sylvia Reynaga RN case manager who confirms that due to patient's inability to transfer independently, patient would be more appropriate for fpc care over [facility] care. DENTAL TECHNICIAN INSTRUCTOR to contact area nursing facilities for bed availability to obtain fax number to insure patient's information if forwarded to those facilities for admission review. Problem:DENTAL TECHNICIAN INSTRUCTOR Community Resource Planning Goal:DENTAL TECHNICIAN INSTRUCTOR Community Resource Planning Completed documented in this encounter Care Teams University Counselor Relationship Specialty Start Date End Date Cecilio Aldrich MD [address] [place] [address] PCP - General HOME CHILD CARE PROVIDER 12/10/18 02/09/19 Damon Swasnon MD [address] [place] [address] INTERNAL MEDICINE 12/10/18 documented as of this encounter
--- OUTSIDE RECORDS SUMMARY | 2024-02-27 03:27 | XMS_ITS | Encounter Summary ---
Author Organization [facility] Address [address] [place] [address]. [place], [place] [address] [place] [address] Care Team Providers Care Director Hardware Name Role Phone Damon Swanson MD Unavailable Rick Glez MD Primary Care Provider [phone] Don Branham MD Primary Care Provider [phone] Reason for Referral * (Routine) - Canceled Specialty Diagnoses / Procedures Referred By Leif t Referred To Contact Procedures OT eval and treat Ekaterina Barlow MD [address] [address] Phone: tel: fax: Referral ID Status Reason Start Date Expiration Date V isits Requested Visits Authorized [id number] Canceled 05/10/2019 06/07/2020 1 1 ON CUTTING MACHINE OPERATOR * Home Health Care (Routine) - Closed Specialty Diagnoses / Procedures Referred By Leif t Referred To Contact Home Health Services / [facility] Diagnoses Ulcer of lower limb, left, limited to breakdown of skin (CMS/HCC [facility]) Ekaterina Barlow MD [address] [address] Phone: tel: fax: [facility] [address] [facility] [address] [place] [address] Phone: tel: fax: Referral ID Status Reason Start Date Expiration Date V isits Requested Visits Authorized [id number] Closed Home Health Services 05/10/2019 06/08/2020 1 1 ON CUTTING MACHINE OPERATOR * Imaging (Urgent) - Closed Specialty Diagnoses / Procedures Referred By Contac t Referred To Contact Procedures IR MIDLINE PLACEMENT GREATER 3YR [facility] Med/Surg [address] [place] [address] Phone: tel: Referral ID Status Reason Start Date Expiration Date Visits Re quested Visits Authorized [id number] Closed 05/09/2019 06/06/2020 1 1 ON CUTTING MACHINE OPERATOR * Imaging (Urgent) - Closed Specialty Diagnoses / Procedures Referred By Contac t Referred To Contact RADIOLOGY Procedures USV ART REST W REBECCA LOW EXT USV ART DUPLEX+REBECCA LOW BRENDON [place] [address] Phone: tel: fax: Referral ID Status Reason Start Date Expiration Date Visits Re quested Visits Authorized [id number] Closed 05/07/2019 06/04/2020 1 1 ON CUTTING MACHINE OPERATOR * (Routine) - Closed Specialty Diagnoses / Procedures Referred By Contac t Referred To Contact Procedures Consult to wound care [place] [address] Phone: tel: fax: Referral ID Status Reason Start Date Expiration Date Visits Re quested Visits Authorized [id number] Closed 05/07/2019 06/04/2020 1 1 ON CUTTING MACHINE OPERATOR * (Routine) - Canceled Specialty Diagnoses / Procedures Referred By Contac t Referred To Contact Procedures PT eval and treat [place] [address] Phone: tel: fax: Referral ID Status Reason Start Date Expiration Date V isits Requested Visits Authorized [id number] Canceled 05/07/2019 06/04/2020 1 1 ON CUTTING MACHINE OPERATOR Reason for Visit * Reason Comments Decubitus Ulcer Hyperglycemia * Auth/Cert Specialty Diagnoses / Procedures Referred By Contac t Referred To Contact Diagnoses Weakness Hyperglycemia Decubitus skin ulcer Noncompliance Sepsis ([facility]) Sepsis ([facility]) Referral ID Status Reason Start Date Expiration Date Visits Re quested Visits Authorized [id number] 1 1 Encounter Details Date Type Department Care Team (Late st Contact Info) Description 05/07/2019 12:00 PM BUTTON CUTTING MACHINE OPERATOR - 05/17/2019 10:45 AM BUTTON CUTTING MACHINE OPERATOR Hospital Encounter [facility]urg [address] [place] [address] Don Branham MD [address] [place] [address] Loraine Penaloza MD 1 [place] [address] [phone] (Work) Quiana Buenrostro MD [place], [place] [address] [phone] (Work) Rosa Fabian MD [place], [place] [address] [phone] (Work) Ekaterina Barlow MD [address] [place] [address] Sharon Ortez NP 1 [place] [address] [phone] (Work) Beth Cm MD 1 [place], [place] [address] [phone] (Work) Fabiola Carter MD 1 [place], [place] [address] [phone] (Work) Decubitus Ulcer; Hyperglycemia Discharge Disposition: [facility] Facility Social History Tobacco Use Types Packs/Day [...] Comments Blood Pressure 135/53 05/17/2019 5:00 AM BUTTON CUTTING MACHINE OPERATOR Pulse 78 05/17/2019 5:00 AM BUTTON CUTTING MACHINE OPERATOR Temperature 37.1 ??C (98.8 ??F) 05/17/2019 5:00 AM CS T Respiratory Rate 18 05/17/2019 5:00 AM BUTTON CUTTING MACHINE OPERATOR Oxygen Saturation 96% 05/17/2019 5:00 AM BUTTON CUTTING MACHINE OPERATOR Inhaled Oxygen Concentration - - Weight 96 kg (211 lb 10.3 oz) 05/16/2019 5:31 A M BUTTON CUTTING MACHINE OPERATOR Height 157.5 cm (5' 2 ) 05/07/2019 11:45 AM BUTTON CUTTING MACHINE OPERATOR Body Mass Index 38.71 05/07/2019 11:45 AM BUTTON CUTTING MACHINE OPERATOR documented in this encounter Functional Status * [...] Assessment Author Status No 05/07/2019 5:32 PM BUTTON CUTTING MACHINE OPERATOR Activ e * RETIRED Are you blind or do you have serious difficulty seeing, even when wearing glasses? Answer Date of Assessment Author Status No 05/07/2019 5:32 PM BUTTON CUTTING MACHINE OPERATOR Activ e * Do you have serious [...] since mid March after being discharged from [facility]. She was in rehab due to leg weakness. Patient states her wound has not been drianing but does have a foul odor. She says her granddaughter would not get her creams to put on her wounds and her pain was getting worse so she came to the hospital. Patient mentions that her urine has looked like glue since she was left the [place]. She has occasional chills. No fevers, sweats. [...] neuropathy Noncompliant with medications [facility] Sliding scale insulin A1c 11.4, indicating poor [...] Technically successful, right mid arm brachial 4 Honduran 20 cm midline catheter placement. 05/08/19 1102 [...] medications were sent to [facility] - [address] [address] ?? chlorthalidone 25 MG tablet ?? collagenase ointment ?? gabapentin 300 MG capsule ?? levofloxacin 500 MG tablet Disposition: [facility] Facility Time Spent on Discharge: 34 minutes Signed: Fabiola Carter MD documented in this encounter Discharge Instructions * Discharge Instructions* India Fournier RN - 05/17/2019 10:22 AM BUTTON CUTTING MACHINE OPERATOR Images from the original note were not [...] you take. Talk to your doctor or perinatal educator so you know what to do before you have a low blood sugar level. ?? High, you may need to take a drug or change the dose to help bring the sugar level down. Also, review each number to see how food, activity, stress, and drugs have affected it. Talk to your doctoror a perinatal educator about your results. ?? Normal, you [...] or dosages. Where can I learn more? [employer] http://www.diabetes.org/sibxqi-zawt-naqjcoxi/omsudfxet-uyj-pqxk/rrsjd-nnmbeia-ir ntrol/fuqmsszm-gflr-fmodu-glucose.html FamilyDoctor.org http://familydoctor.org/familydoctor/en/diseases-conditions/diabetes/treatment/m nwmowpsuj-pbdn-lmeff-sugar-level.html Last Reviewed Date 2015-06-11 Consumer Information Use [...] right for you. Copyright Copyright ?? 2019 [employer] and its affiliates and/or licensors. All rights reserved. Patient Education Diabetes and Diet The Basics Written by the doctors and editors at [facility] Why is diet important in [...] process is complete. This topic retrieved from [employer] on: Oct 24, 2018. Topic 62755 Version 6.0 Release: 27.3.2 - C27.227 ?2019??[employer] and/or its affiliates.??All rights reserved. Consumer Information [...] that is right for you.The use of [employer] content is governed by the [employer] Terms of Use. ??2019 [employer]. All rights reserved. Copyright ?2019??[employer] and/or its affiliates.??All rights reserved. Home Health has been [facility] for you with [facility]. A nurse will [...] wound bed, cover with dry foam. Changedaily ON CUTTING MACHINE OPERATOR documented in this encounter Medications at Time [...] ease with transfers. Outcome: Adequate for Discharge ON CUTTING MACHINE OPERATOR * Layne Corbett LCSW - 05/17/2019 10:01 AM CST 05/17/19 1001 Discharge Planning Living Arrangements Other (Comment) Support Systems Children Type of Residence [facility] Assistance Needed Yes IV Infusion at discharge No Patient expects to be discharged to: [facility]-Term [facility] confirmed w/ [facility] this date they they CAN accept the patient for skilled care and are willing to accept this date. [facility]OUS provided RN with numbers for report and notified the patient son of the d/c date of today and location. Patient son was agreeable. Important Message from Medicare provided to patient/patient hr representative. Education provided and patient/patient hr representative verbalized understanding and gave verbal consent over the phone. Patient/patient hr representative provided copy ofIMM and copy placed into chart for scanning. SW then arranged next available ambulance with [facility] for transportation and completed an ambulance form. CASE CLOSED ON CUTTING MACHINE OPERATOR * aFbiola Carter MD - 05/16/2019 3:33 PM CST [...] losartan 100 mg Oral Daily acetaminophen, hydrALAZINE, ghuiaiebz-efjtjxim-sqweqzihynn, ondansetron, polyethylene glycol, traMADol Labs: Recent Labs [...] No results for input(s): PH, PCO2, PO2, P1IQQFUVOFYT, BICARBWB, BASEDEFICIT, BASEEXCESS in the [id number] hours. No results found for this or [...] neuropathy Noncompliant with medications since [facility] from [facility] Sliding scale insulin A1c 11.4, indicating poor [...] ID. Fabiola Carter MD 05/16/2019 3:33 PM ON CUTTING MACHINE OPERATOR * Margi Candi, OTR - 05/16/2019 3:09 [...] alarm set/activated;Call light within reach JOSE BACON ON CUTTING MACHINE OPERATOR * June Bettina Boland - 05/16/2019 3:00 PM CST 05/16/19 1256 Therapy Visit Ordering Provider [facility] Room 504: Patient was in bed prior [...] PT Recommendation PT during Hospitalization;PT at [facility] Facility;Home with assistance;Home PT (SNF vs. home [...] Rizwana Robles PTA at 05/16/2019 3:02 PM BUTTON CUTTING MACHINE OPERATOR ON CUTTING MACHINE OPERATOR ON CUTTING MACHINE OPERATOR * VIANEY Michel - 05/16/2019 9:55 AM CST Multiple calls placed to [facility] yesterday and informed that DON will call SW back, no return call or VM yet this AM. Call placed again this AM to Mee at [facility] once again stating they will call back. GRAPHIC ART TECHNICIAN expressed that patient is ready for d/c this date and that there was no return call yesterday so we will need an answer soon. Mee voiced understanding. Will check back with [facility] again if no return call and then seek additional placement if needed. Will continue to follow for d/c planning. 11AM Call placed again to [facility] and they stated they still reviewing and will call back. GRAPHIC ART TECHNICIAN againexpressed urgency because patient has discharge orders in. Call placed to pts son who would not give a 3rd SNF option because he wants her placed close to home. 1PM Call placed to building code administrator at [facility] [address] who stated she [...] night will be put in by CM. ON CUTTING MACHINE OPERATOR ON CUTTING MACHINE OPERATOR ON CUTTING MACHINE OPERATOR ON CUTTING MACHINE OPERATOR ON CUTTING MACHINE OPERATOR * Fabiola Carter MD - 05/15/2019 5:47 [...] chloride 250 mL (05/15/19 1214) acetaminophen, hydrALAZINE, ivbvwqzqu-zrmrblrq-wmsnusotrcm, ondansetron, polyethylene glycol, traMADol Labs: Recent Labs [...] No results for input(s): PH, PCO2, PO2, H2SGMMUBMFFG, BICARBWB, BASEDEFICIT, BASEEXCESS in the lohu075 hours. No results found for this or [...] neuropathy Noncompliant with medications since [facility] from [facility] Sliding scale insulin A1c 11.4, indicating poor [...] transfusion.. Fabiola Carter MD 05/15/2019 5:47 PM ON CUTTING MACHINE OPERATOR * VIANEY Michel - 05/15/2019 2:51 PM CST GRAPHIC ART TECHNICIAN spoke with Loree Mcintyre at [place], they are full and cannot accept pt. Call [facility] toErica at [place], they have received referral and DON to call back. Pt care discussed during rounds this date. Pt ready to d/c tomorrow after blood transfusion. Will continue to follow for d/c planning. ON CUTTING MACHINE OPERATOR * Audrey Costa, OT Student - 05/15/2019 [...] Ailyn Santamaria OTR at 05/15/2019 12:39 PM BUTTON CUTTING MACHINE OPERATOR ON CUTTING MACHINE OPERATOR ON CUTTING MACHINE OPERATOR * Rizwana Robles PTA - 05/15/2019 11:11 AM CST 05/15/19 1100 Therapy Visit Ordering Provider [facility] Room 504: Per chart review patient's HGB is at 6.7. Will hold therapy at this time untila rise is shown. RN made aware. Reason for admission sepsis, cellulitis, UTI Relevant Comorbidities/ Personal Factors to PT DM, HLD, stage 3-4 ulcer on L LE, stage 3 B posterior proximal thigh ulcer, breast cancer, HTN ON CUTTING MACHINE OPERATOR * Fabiola Carter MD - 05/14/2019 7:40 [...] did not want to go to a senior care facility and wants to do home health [...] losartan 100 mg Oral Daily acetaminophen, hydrALAZINE, nlnlghgam-ssfnjwqg-mgbtxsdegvi, ondansetron, polyethylene glycol, traMADol Labs: Recent Labs [...] No results for input(s): PH, PCO2, PO2, B4JWGQBEPICO, BICARBWB, BASEDEFICIT, BASEEXCESS in the [id number] hours. No results found for this or [...] neuropathy Noncompliant with medications since [facility] from [facility] Sliding scale insulin A1c 11.4, indicating poor [...] discharge. Fabiola Carter MD 05/14/2019 7:41 PM ON CUTTING MACHINE OPERATOR * Haydee Ramirez, CONSULTING NETWORKING ENGINEER - 05/14/2019 2:55 PM CST 05/14/19 1430 [...] Standing LE Exercise Partial heel raises and qamqzvdjz16 at walker Recommendation PT Recommendation PT during Hospitalization;PT at [facility];Home with assistance;Home PT (SNF vs. home [...] set/activated;Call light within reach;Family/friend present with patient ON CUTTING MACHINE OPERATOR * NAVDEEP MichelW - 05/14/2019 2:42 PM CST GRAPHIC ART TECHNICIAN met with pt at bedside to again discuss SNF vs home with HH. Pt stated that she is good to return home with her daughter and HH and she has a ride for d/c. GRAPHIC ART TECHNICIAN placed call to pts daughter Ailyn who stated that she is unable to help her mother as she works everyday. GRAPHIC ART TECHNICIAN met with pt again to explain that she needs help at home and daily wound dressings which her daughter is claiming she is unable to assist with. Pts son was at beside this visit and helped GRAPHIC ART TECHNICIAN explain concerns about returninghome. Pt now agreeable to short term SNF placement for PT/OT and wound care. Senior Civil Engineer has provided a complete list of the following types of agencies, SNF, to pts son utilizing the [employer] tablet. I have explained that the tablets will display ramirez quality metrics along with any entity in which [facility] to disclose any financial obligations. Selected options were discussed and pts son and pt voiced a preference for [facility] and [facility]. Referral was made based on pts sons preference. Hospitalist informed that pt is now agreeable to SNF. Will continue to follow for d/c planning. ON CUTTING MACHINE OPERATOR * Ailyn Santamaria OTR - 05/14/2019 2:33 [...] OT Recommendation OT during Hospitalization;OT at [facility] Facility;Home OT;Home with assistance OT Equipment Recommended [...] set/activated;Call light within reach;Family/friend present with patient ON CUTTING MACHINE OPERATOR * Audrey Costa, OT Student - 05/14/2019 [...] sitting in recliner chair. Pt required LHAE (sockaid/bull gang worker) for distal reach; Min cues for tech [...] OT Recommendation OT during Hospitalization;OT at [facility] Facility;Home OT;Home with assistance OT Equipment Recommended [...] by ONIEL Puentes at 05/16/2019 7:56 AM BUTTON CUTTING MACHINE OPERATOR ON CUTTING MACHINE OPERATOR ON CUTTING MACHINE OPERATOR * Beth Cm MD - 05/13/2019 5:08 [...] losartan 100 mg Oral Daily acetaminophen, hydrALAZINE, wrmjuysfq-ndlhhazn-krcxpsocjhm, ondansetron, polyethylene glycol, traMADol Labs, Imaging, Other [...] No results for input(s): PH, PCO2, PO2, O3UKSVMDPOTT, BICARBWB, BASEDEFICIT, BASEEXCESS in the lopj116 hours. No results found for this or any previous visit. Imaging Usv Art Rest W Rebecca Low Ext Result Date: 05/11/2019 ARTERIAL DOPPLER - REBECCA BILATERAL LOWER EXTREMITY VASCULAR LAB Pat.Name: IRIS GIL Pat.ID: [id number] .Date: 05/08/2019 Refer.: Rick Glez Exam Time: 10:48:00 AM Study Type:FRANCISCO VS Arterial Doppler Legs BRENDON Age: 11 1955,64Y Sex: FEMALE Sonogrphr: THAI Benjamin Pat. Stat.:Inpatient Room: [facility] History / Clinical: LLE non healing [...] Dist Pop A PSV 81.4 cm/sLeft Dist CONSULTING NETWORKING ENGINEER Dist CONSULTING NETWORKING ENGINEER PSV 76.3 cm/s Left Dist MAKAYLA Dist MAKAYLA PSV 53.1 cm/s Right SENIOR RESEARCH PROJECT MANAGER SENIOR RESEARCH PROJECT MANAGER PSV 108 cm/s Right Dist Pop A Dist Pop A PSV 57.4 cm/s Right Dist CONSULTING NETWORKING ENGINEER Dist CONSULTING NETWORKING ENGINEER PSV 85.7 cm/s Right Dist MAKAYLA [...] PT REBECCA PT 0 Left REBECCA DP REBCECA DP 0.615 Left TBI TBI 0.23 Signed [...] re and dilator removed and a 4 Honduran 20 cm single midline was advanced to the level of the axillary vein. Position was confirmed fluoroscopically. Catheter was secured to the skin with adhesive dressing. Patient tolerated the procedure well. There were no immediate complications. Fluoroscopy time:2 seconds Number of images: 2 saved IMPRESSION: 1. Technically successful, right mid arm brachial 4 Honduran 20 cm midline catheter placement. : Results for orders placed or performed during the hospital encounter of 05/07/19 ECG 12 lead Narrative [address] Test Date: 2019-05-13 Pat Name: IRIS GIL Department: Room: [facility] Gender: Female Radiosonde Specialist: KAYLEE : 1955 Requested By: BETH CM Order Number: [id number] Reading MD: Measurements Intervals [address] Rate: 89 P: 53 [place]: 150 QRS: -29 QRSD: 105 T: 117 [...] hyperlipidemia Noncompliant with medications [facility] from [facility] Sliding scale insulin A1c 11.4, indicating poor [...] patient and primary nurse. Beth Cm MD ON CUTTING MACHINE OPERATOR * Bud Weir MD - 05/13/2019 3:34 [...] HEENT: ROSETTE, EOMI CVS: S1 S2 audible, LAND ACQUISITION MANAGER RESP: CTA B/L ABD: S,NT,ND BS+ve EXT/SKIN: [...] Hyperlipidemia Essential hypertension BUD WEIR MD 05/13/2019 ON CUTTING MACHINE OPERATOR * VIANEY Michel - 05/13/2019 2:04 PM CST Pt care discussed during rounds this date. ID has changed pts antibiotics so no d/c this date. Rex with [facility] informed. Possible d/c tomorrow. Per PT/OT notes pt is improving, still could benefitfrom SNF, pt refusing. Will continue to follow for d/c planning. ON CUTTING MACHINE OPERATOR * Sonali Sheldon RD - 05/13/2019 1:59 [...] Joe to be>75%. ??Monitor intake, weight, labs. ON CUTTING MACHINE OPERATOR ON CUTTING MACHINE OPERATOR * Lucía Ohara - 05/13/2019 1:51 PM CST Needs encouragement to participate with ADL's was OOB to chair for awhile, unable to complete care for self ON CUTTING MACHINE OPERATOR * Rizwana Robles, CONSULTING NETWORKING ENGINEER - 05/13/2019 11:39 AM CST 05/13/19 1117 Therapy Visit Ordering Provider [facility] [id number]: Patient is up in chair and willing [...] PT Recommendation PT during Hospitalization;PT at [facility];Home with assistance;Home PT (SNF vs. home [...] set/activated;Call light within reach;Nursing aware of session ON CUTTING MACHINE OPERATOR * Margi Christopher, OTR - 05/13/2019 9:48 [...] home at D/C. Prior Function Level of [place] Independent with functional transfers;Independent with ambulation;Needs assistance [...] OT Recommendation OT during Hospitalization;OT at [facility] Facility;Home OT;Home with assistance (SNF vs. HHOT- [...] light within reach;Chair alarm set/activated JOSE BACON ON CUTTING MACHINE OPERATOR * Beth Cm MD - 05/12/2019 3:33 [...] losartan 100 mg Oral Daily acetaminophen, hydrALAZINE, grqazvqmy-juzlkiiv-xffbajukgwu, ondansetron, polyethylene glycol, traMADol Labs, Imaging, Other [...] No results for input(s): PH, PCO2, PO2, D7DFNKNTFGYI, BICARBWB, BASEDEFICIT, BASEEXCESS in the cwbj056 hours. No results found for this or any previous visit. Imaging Usv Art Rest W Rebecca Low Ext Result Date: 05/11/2019 ARTERIAL DOPPLER - REBECCA BILATERAL LOWER EXTREMITY VASCULAR LAB Pat.Name: IRIS GIL Pat.ID: [id number] .Date: 05/08/2019 Refer.MD: Rick Glez Exam Time: 10:48:00 AM Study Type:FRANCISCO VS Arterial Doppler Legs BRENDON Age: 11 1955,64Y Sex: FEMALE Sonogrphr: THAI Benjamin Pat. Stat.:Inpatient Room: [facility] History / Clinical: LLE non healing [...] Pop A PSV 81.4 cm/s Left Dist CONSULTING NETWORKING ENGINEER Dist CONSULTING NETWORKING ENGINEER PSV 76.3 cm/s Left Dist MAKAYLA Dist MAKAYLA PSV 53.1 cm/s Right SENIOR RESEARCH PROJECT MANAGER SENIOR RESEARCH PROJECT MANAGER PSV 108 cm/sRight Dist Pop A Dist Pop A PSV 57.4 cm/s Right Dist CONSULTING NETWORKING ENGINEER Dist CONSULTING NETWORKING ENGINEER PSV 85.7 cm/s Right Dist MAKAYLA DistATA [...] re and dilator removed and a 4 Honduran 20 cm single midline was advanced to the level of the axillary vein. Position was confirmed fluoroscopically. Catheter was secured to the skin with adhesive dressing. Patient tolerated the procedure well. There were no immediate complications. Fluoroscopy time:2 seconds Number of images: 2 saved IMPRESSION: 1. Technically successful, right mid arm brachial 4 Honduran 20 cm midline catheter placement. : No [...] hyperlipidemia Noncompliant with medications [facility] from [facility] Sliding scale insulin A1c 11.4, indicating poor [...] patient and primary nurse. Beth Cm MD ON CUTTING MACHINE OPERATOR * Sharon Ortez NP - 05/11/2019 2:39 [...] 100 mL/hr at 05/10/19 2321 acetaminophen, hydrALAZINE, fwasmozin-jcckgnlv-qrsnvtxccia, ondansetron, polyethylene glycol, traMADol Labs, Imaging, Other [...] No results for input(s): PH, PCO2, PO2, O2LCSCBDJDZF, BICARBWB, BASEDEFICIT, BASEEXCESS in the fftj123 hours. No results found for this or any previous visit. Imaging Usv Art Rest W Rebecca Low Ext Result Date: 05/11/2019 ARTERIAL DOPPLER - REBECCA BILATERAL LOWER EXTREMITY VASCULAR LAB Pat.Name: IRIS GIL.ID:[id number] .Date: 05/08/2019 Refer.: Rick Glez Exam Time: 10:48:00 AM Study Type:FRANCISCO VS Arterial Doppler Legs BRENDON Age: 11 1955,64Y Sex: FEMALE Sonogrphr: THAI Benjamin Pat. Stat.:Inpatient Room: [facility] History / Clinical: LLE non healing [...] Pop A PSV 81.4 cm/s Left Dist CONSULTING NETWORKING ENGINEER Dist CONSULTING NETWORKING ENGINEER PSV 76.3 cm/s Left Dist MAKAYLA Dist MAKYALA PSV 53.1 cm/s Right SENIOR RESEARCH PROJECT MANAGER SENIOR RESEARCH PROJECT MANAGER PSV 108 cm/s Right Dist Pop A Dist Pop A PSV 57.4 cm/s Right Dist CONSULTING NETWORKING ENGINEER Dist CONSULTING NETWORKING ENGINEER PSV 85.7 cm/s Right Dist MAKAYLA [...] re and dilator removed and a 4 Honduran 20 cm single midline was advanced to the level of the axillary vein. Position was confirmed fluoroscopically. Catheter was secured to the skin with adhesive dressing. Patient tolerated the procedure well. There were no immediate complications. Fluoroscopy time:2 seconds Number of images: 2 saved IMPRESSION: 1. Technically successful, right mid arm brachial 4 Honduran 20 cm midline catheter placement. : No [...] hyperlipidemia Noncompliant with medications since [facility] from [facility] Sliding scale insulin A1c 11.4, indicating poor [...] Anali Agrawal MD at 05/11/2019 3:08 PM BUTTON CUTTING MACHINE OPERATOR ON CUTTING MACHINE OPERATOR ON CUTTING MACHINE OPERATOR * Rizwana Robles, CONSULTING NETWORKING ENGINEER - 05/11/2019 11:26 AM CST 05/11/19 1100 Therapy Visit Ordering Provider [facility] [facility] [id number]: Patient agreeable to get up to the [...] PT Recommendation PT during Hospitalization;PT at [facility];Home with assistance;Home PT (SNF vs. home [...] set/activated;Call light within reach;Nursing aware of session ON CUTTING MACHINE OPERATOR * Spenser White MD - 05/11/2019 7:58 [...] mL/hr at 05/10/19 2321 PRN Meds:acetaminophen, hydrALAZINE, uqqmqvomf-veiycops-eltazkiwhij, ondansetron, polyethylene glycol, traMADol OBJECTIVE Vital signs [...] superficial, good Granulation, no exudate Pulses: B SENIOR RESEARCH PROJECT MANAGER 2+ and symmetric all extremities Skin:Skin color, [...] INR, PTT in the last 168 hours. ON CUTTING MACHINE OPERATOR * Ekaterina Barlow MD - 05/10/2019 7:21 [...] Technically successful, right mid arm brachial 4 Honduran 20 cm midline catheter placement. Assessment Sepsis [...] hyperlipidemia Noncompliant with medications [facility] Sliding scale insulin A1c 11.4 Re-evaluate medications [...] consult re: treatment Pseudomonas EKATERINA BARLOW MD ON CUTTING MACHINE OPERATOR * Silvia Almonte PTA - 05/10/2019 3:38 PM CST 05/10/19 1345 Therapy Visit Ordering Provider Tiago Peraza [id number]; Pt was supine in bed and agreed [...] PT Recommendation PT during Hospitalization;PT at [facility];Home with assistance;Home PT (SNF vs. home [...] Safety Chair alarm set/activated;Call light within reach ON CUTTING MACHINE OPERATOR * Lucía Ohara - 05/10/2019 1:32 PM CST Needs much encouragement to participate with ADL'S declines to ge OOB at this time ON CUTTING MACHINE OPERATOR * VIANEY Michel - 05/10/2019 11:17 AM CST GRAPHIC ART TECHNICIAN met with pt at bedside to discuss SNF placement based on PT recs. At this time pt is still refusing SNF stating she can manage at home and that her daughter can help her. GRAPHIC ART TECHNICIAN explained that pt will need one of her wound dressings changed daily and the others every three days. GRAPHIC ART TECHNICIAN explained thatHH will not come out daily. Pt voiced understanding and stated that her daughter can help change dressings on the days HH is not there. Pt has had [facility] in the past, referral sent to SPENCER Goodman with [facility] who is meeting with pt and will let GRAPHIC ART TECHNICIAN know if they can accept pt back. Will continue to follow for d/c planning. Possibly w/e d/c. ON CUTTING MACHINE OPERATOR * Zhao Martin RN - 05/10/2019 5:00 AM CST Problem: Discharge Planning Goal: Knowledge of discharge instructions Outcome: Progressing ON CUTTING MACHINE OPERATOR * Lucía Ohara - 05/09/2019 2:39 PM CST PLANS TO GO T IR FOR MIDLINE TO CONTINUE WIT ANTIBIOTICS, QUESTIONS ANSWERED A THEY ARISE ON CUTTING MACHINE OPERATOR * Ekaterina Singh, PT - 05/09/2019 2:37 [...] of the day. Prior Function Level of [place] Independent with functional transfers;Independent with ambulation;Needs assistance [...] PT Recommendation PT during Hospitalization;PT at [facility];Home with assistance;Home PT (SNF vs. home [...] within reach;Nursing aware of session;Transfer status education ON CUTTING MACHINE OPERATOR * Grant Guardado - 05/09/2019 2:16 PM CST 05/09/19 1300 Advance Directives (For Healthcare) Advance Directive Patient has advance directive, copy in chart Type of Healthcare Directive Durable power of real estate associate attorney for health care Information Provided on Healthcare Directives Yes Healthcare Agent's Name Ailyn Turner Healthcare Agent's ON CUTTING MACHINE OPERATOR * VIANEY Michel - 05/09/2019 2:05 PM CST Pt care discussed during rounds this date. Possible d/c Monday or Monday after IV antibiotics. Still awaiting PT recs for home vs SNF. GRAPHIC ART TECHNICIAN reached out to PT to see today. Will continue to follow for d/c planning. ON CUTTING MACHINE OPERATOR * Loraine Penaloza MD - 05/09/2019 10:25 [...] 100 mL/hr at 05/09/19 0226 acetaminophen, hydrALAZINE, znvijqeuq-jpqxuqtw-gzcnqybgorb, ondansetron, polyethylene glycol, traMADol Labs, Imaging, Other [...] No results for input(s): PH, PCO2, PO2, S1JXDKSORVER, BICARBWB, BASEDEFICIT, BASEEXCESS in the [id number] hours. No results found for this or any previous visit. Imaging Usv Art Rest W Rebecca Low Ext Result Date: 05/08/2019 ARTERIAL DOPPLER - REBECCA BILATERAL LOWER EXTREMITY VASCULAR LAB Pat.Name: IRIS GIL Gema.ID:[id number] St.Date: 05/08/2019 Refer.MD: Rick Glez Exam Time: [...] Pop A PSV 81.4 cm/s Left Dist CONSULTING NETWORKING ENGINEER Dist CONSULTING NETWORKING ENGINEER PSV 76.3 cm/s Left Dist MAKAYLA Dist MAKAYLA PSV 53.1 cm/s Right SENIOR RESEARCH PROJECT MANAGER SENIOR RESEARCH PROJECT MANAGER PSV 108 cm/s Right Dist Pop A Dist Pop A PSV 57.4 cm/s Right Dist CONSULTING NETWORKING ENGINEER Dist CONSULTING NETWORKING ENGINEER PSV 85.7 cm/s Right Dist MAKAYLA [...] hyperlipidemia Noncompliant with medications since [facility] from [facility] Sliding scale insulin A1c 11.4 Re-evaluate medications [...] RN. Awaiting Vascular recommendations. LORAINE PENALOZA MD ON CUTTING MACHINE OPERATOR ON CUTTING MACHINE OPERATOR * India Fournier RN - 05/09/2019 6:08 [...] of need for increased mobility Outcome: Progressing ON CUTTING MACHINE OPERATOR * Rosa Fabian MD - 05/08/2019 5:13 [...] hyperlipidemia Noncompliant with medications since [facility] from [facility] Sliding scale insulin Check A1c Essential hypertension [...] maker is Ailyn wright ROSA FABIAN MD ON CUTTING MACHINE OPERATOR * VIANEY Michel - 05/08/2019 1:54 PM CST GRAPHIC ART TECHNICIAN met with pt at bedside to discuss d/c planning. Pt stated that she has been living at home withher daughter and grandchildren but her daughter is not around much or helpful. Pt was d/c from [facility] in March and stated that she was [...] to go home at d/c. Pt uses [facility]. If pt d/c home she will [...] Assistance No Behavior Oriented Communication Talks;Understands speaking;Understands Salvadorean Anticipated Discharge Needs Change in Living Arrangements [...] Patient expects to be discharged to: Home ON CUTTING MACHINE OPERATOR * Serg Goodman DPT - 05/08/2019 11:49 AM CST 05/08/19 1100 Therapy Visit Subjective Attempted to se pt. She states she is not feeling well and does not want to participate.Will attempt later today. ON CUTTING MACHINE OPERATOR * Onelia Khan PharmD - 05/08/2019 10:56 [...] as necessary. Thank you for the consult! ON CUTTING MACHINE OPERATOR * India Fournier RN - 05/08/2019 2:17 [...] Goal: Absence of venous thromboembolism Outcome: Progressing ON CUTTING MACHINE OPERATOR * Rene Vogel PharmD, [facility] - 05/07/2019 6:50 PM CST [...] the 1900 dose 05/10, goal is 10-15. ON CUTTING MACHINE OPERATOR documented in this encounter H&P Notes * [...] during recuperation were discussed with the patient/family/personal hr representative. Reasonable alternatives to the patient's proposed procedure/surgery including benefits, risks, and side effects related to the alternatives and the risks related to not receiving the proposed care were also discussed with the patient/family/personal hr representative. Questions were answered and the patient /family/personal hr representative verbalized understanding and desires to proceed. ON CUTTING MACHINE OPERATOR * Loraine Penaloza MD - 05/07/2019 5:28 [...] since mid March after being discharged from [facility]. She was in rehab due to leg weakness. Patient states her wound has not been drianing but does have a foul odor. She says her granddaughter would not get her creams to put on her wounds and her pain was getting worse so she came to the hospital. Patient mentions that her urine has looked like glue since she was left the [place]. She has occasional chills. No fevers, sweats. [...] file Gets together: Not on file Attends yazidi service: Not on file Active member of [...] No results for input(s): PH, PCO2, PO2, [id number], BICARBWB, BASEDEFICIT, BASEEXCESS in the [id number] hours. IMAGING & OTHER STUDIES No results [...] hyperlipidemia Noncompliant with medications since [facility] from [facility] Sliding scale insulin Check A1c Essential hypertension [...] with the ED physician. LORAINE PENALOZA MD ON CUTTING MACHINE OPERATOR documented in this encounter Consult Notes * [...] file Gets together: Not on file Attends yazidi service: Not on file Active member of [...] HEENT: ROSETTE, EOMI CVS: S1 S2 audible, LAND ACQUISITION MANAGER RESP: CTA B/L ABD:S,NT,ND BS+ve EXT/SKIN: No [...] Hyperlipidemia Essential hypertension BUD WEIR MD 05/12/2019 ON CUTTING MACHINE OPERATOR * Khalif Guy MD - 05/10/2019 10:09 [...] 100 mL/hr at 05/10/19 0234 acetaminophen, hydrALAZINE, xthokkloj-brnqytuf-mdbfhvnzkjt, ondansetron, polyethylene glycol, traMADol Prior to Admission [...] EXTREMITY VASCULAR LAB Pat.Name: IRIS GIL Pat.ID: [id number] .Date: 05/08/2019 Refer.MD: Rick Glez Exam Time: 10:48:00 AM Study Type:FRANCISCO VS Arterial Doppler Legs BRENDON Age: 11 1955,64Y Sex: FEMALE Sonogrphr: THAI Benjamin Pat. Stat.:Inpatient Room: [facility] History / Clinical: LLE non healing [...] Pop A PSV 81.4 cm/s Left Dist CONSULTING NETWORKING ENGINEER Dist CONSULTING NETWORKING ENGINEER PSV 76.3 cm/s Left Dist MAKAYLA Dist MAKAYLA PSV 53.1 cm/s Right SENIOR RESEARCH PROJECT MANAGER SENIOR RESEARCH PROJECT MANAGER PSV 108 cm/s Right Dist Pop A Dist Pop A PSV 57.4 cm/s Right Dist CONSULTING NETWORKING ENGINEER Dist CONSULTING NETWORKING ENGINEER PSV 85.7 cm/s Right Dist MAKAYLA [...] for consultation. KHALIF GUY MD Consulted by Ekaterian Barlow MD ON CUTTING MACHINE OPERATOR * Sharon Nixon RN - 05/08/2019 3:42 [...] pressure reduction measures. 05/08/2019 Sharon Nixon RN ON CUTTING MACHINE OPERATOR * Sonali Sheldon RD - 05/08/2019 11:37 [...] to be >75%. Monitor intake, weight, labs. ON CUTTING MACHINE OPERATOR documented in this encounter Nursing Notes * Lucía Ohara - 05/09/2019 3:27 PM CST Patient returned from IR with midline in place ON CUTTING MACHINE OPERATOR * Amanda Kyle RN - 05/09/2019 3:04 PM CST #4 F MIDLINE PLACED RIGHT UPPER ARM -BRACHIAL ON CUTTING MACHINE OPERATOR * Lucía Ohara - 05/09/2019 2:36 PM CST TRANSPORT HERE AT THIS TIME TO TAKE THE PATIENT TO IR FOR THE MIDLINE ON CUTTING MACHINE OPERATOR * India Fournier RN - 05/09/2019 2:21 AM CST 2 peripheral stick attempts were made to replace patient's IV access. Contacted Hospitalist and a midline was ordered. ON CUTTING MACHINE OPERATOR * Carissa Patel RN - 05/08/2019 6:03 [...] to night RN to do the same. ON CUTTING MACHINE OPERATOR documented in this encounter OR Notes * Brief Op Note - Yolanda Wing MD - 05/09/2019 4:02 PM CST 1. Technically successful, right mid arm brachial 4 Honduran 20 cm midline catheter placement. 2. Catheter okay for immediate use. ON CUTTING MACHINE OPERATOR documented in this encounter ED Notes * Lesa George RN - 05/07/2019 8:24 PM CST Pt asleep on stretcher at this time. Call light within reach. ON CUTTING MACHINE OPERATOR * Lesa George RN - 05/07/2019 7:34 PM CST Called rene in pharm about vanc dose. Pharm to readjust 1500mg dose to start tomorrow at 1250mg dose currently infusing. ON CUTTING MACHINE OPERATOR * Lesa George RN - 05/07/2019 7:22 PM CST Pt given warm blanket, resting on stretcher at this time. Call light within reach. ON CUTTING MACHINE OPERATOR * TONY Cool - 05/07/2019 12:30 PM CST Pt unable to urinate in RME. Arely Sheriff EMT ON CUTTING MACHINE OPERATOR * Don Branham MD - 05/07/2019 12:17 PM CST Images from the original note were not included. [place], [place] EMERGENCY DEPARTMENT ENCOUNTER Chief Complaint Chief [...] since mid March after being discharged from [place] [facility]. She was in rehab due to leg weakness. Denies fever, chills, shortness of breath, chest pain, or change in appetite. She usesa pharmacy in [place]. Pt is allergic to codeine. Family hx [...] the physician. Don Branham MD 05/07/19 1519 ON CUTTING MACHINE OPERATOR * Mee Thacker RN - 05/07/2019 11:41 AM CST Reports hx DM. Stopped taking medications mid March because I don't think I have DM . Ulcer to posterior lower leg. Reports I used to go to wound clinic, but no one can take me now . Reports has not seen wound clinic since end of February. Pt reports she left [facility] the end of February. Now lives with her daughter. Poor historian. Unsure what medications she takes. States shehas not taken meds for a while because I don't know how to take it . BS in triage 326. Denies cp/sob. ON CUTTING MACHINE OPERATOR ON CUTTING MACHINE OPERATOR documented in this encounter Plan of Treatment Scheduled Referrals Name Type Priority Associated Diagnoses Orde r Schedule Abbreviated Ambulatory Referral to Home Health Referral Routine Ulcer of lower limb, left, limited to breakdown of skin ([facility]) Ordered: 05/10/2019 documented as of this encounter Procedures Procedure Name Priority Date/Time Associated Diagnosis Comments POCT GLUCOSE - CHONG DOCKED DEVICE Routine 05/17/2019 5:08 AM BUTTON CUTTING MACHINE OPERATOR BASIC METABOLIC PANEL Routine 05/17/2019 4:38 AM BUTTON CUTTING MACHINE OPERATOR CBC W/DIFF AUTOMATED Routine 05/17/2019 4:38 AM BUTTON CUTTING MACHINE OPERATOR POCT GLUCOSE - CHONG DOCKED DEVICE Routine 05/16/2019 8:56 PM BUTTON CUTTING MACHINE OPERATOR POCT GLUCOSE - CHONG DOCKED DEVICE Routine 05/16/2019 4:11 PM BUTTON CUTTING MACHINE OPERATOR POCT GLUCOSE - CHONG DOCKED DEVICE Routine 05/16/2019 11:44 AM BUTTON CUTTING MACHINE OPERATOR BASIC METABOLIC PANEL Routine 05/16/2019 6:04 AM BUTTON CUTTING MACHINE OPERATOR CBC W/DIFF AUTOMATED Routine 05/16/2019 6:04 AM BUTTON CUTTING MACHINE OPERATOR POCT GLUCOSE - CHONG DOCKED DEVICE Routine 05/16/2019 5:36 AM BUTTON CUTTING MACHINE OPERATOR POCT GLUCOSE - CHONG DOCKED DEVICE Routine 05/15/2019 8:43 PM BUTTON CUTTING MACHINE OPERATOR POCT GLUCOSE - CHONG DOCKED DEVICE Routine 05/15/2019 4:44 PM BUTTON CUTTING MACHINE OPERATOR TRANSFUSE RED BLOOD CELLS Routine 05/15/2019 12:11 PM BUTTON CUTTING MACHINE OPERATOR POCT GLUCOSE - CHONG DOCKED DEVICE Routine 05/15/2019 11:42 AM BUTTON CUTTING MACHINE OPERATOR TYPE & SCREEN Routine 05/15/2019 9:34 AM BUTTON CUTTING MACHINE OPERATOR POCT GLUCOSE - CHONG DOCKED DEVICE Routine 05/15/2019 6:33 AM BUTTON CUTTING MACHINE OPERATOR BASIC METABOLIC PANEL Routine 05/15/2019 4:57 AM BUTTON CUTTING MACHINE OPERATOR CBC W/DIFF AUTOMATED Routine 05/15/2019 4:57 AM BUTTON CUTTING MACHINE OPERATOR POCT GLUCOSE - CHONG DOCKED DEVICE Routine 05/14/2019 9:25 PM BUTTON CUTTING MACHINE OPERATOR POCT GLUCOSE - CHONG DOCKED DEVICE Routine 05/14/2019 4:29 PM BUTTON CUTTING MACHINE OPERATOR HEMOGLOBIN AND HEMATOCRIT Routine 05/14/2019 3:42 PM BUTTON CUTTING MACHINE OPERATOR POCT GLUCOSE - CHONG DOCKED DEVICE Routine 05/14/2019 11:54 AM BUTTON CUTTING MACHINE OPERATOR POCT GLUCOSE - CHONG DOCKED DEVICE Routine 05/14/2019 6:42 AM BUTTON CUTTING MACHINE OPERATOR BASIC METABOLIC PANEL Routine 05/14/2019 4:35 AM BUTTON CUTTING MACHINE OPERATOR CBC W/DIFF AUTOMATED Routine 05/14/2019 4:35 AM BUTTON CUTTING MACHINE OPERATOR POCT GLUCOSE - CHONG DOCKED DEVICE Routine 05/13/2019 9:11 PM BUTTON CUTTING MACHINE OPERATOR POCT GLUCOSE - CHONG DOCKED DEVICE Routine 05/13/2019 4:58 PM BUTTON CUTTING MACHINE OPERATOR POCT GLUCOSE - CHONG DOCKED DEVICE Routine 05/13/2019 12:02 PM BUTTON CUTTING MACHINE OPERATOR ECG 12-LEAD Routine 05/13/2019 11:54 AM BUTTON CUTTING MACHINE OPERATOR POCT GLUCOSE - CHONG DOCKED DEVICE Routine 05/13/2019 5:20 AM BUTTON CUTTING MACHINE OPERATOR POCT GLUCOSE - CHONG DOCKED DEVICE Routine 05/12/2019 8:24 PM BUTTON CUTTING MACHINE OPERATOR POCT GLUCOSE - CHONG DOCKED DEVICE Routine 05/12/2019 4:41 PM BUTTON CUTTING MACHINE OPERATOR POCT GLUCOSE - CHONG DOCKED DEVICE Routine 05/12/2019 11:56 AM BUTTON CUTTING MACHINE OPERATOR BASIC METABOLIC PANEL Routine 05/12/2019 6:29 AM BUTTON CUTTING MACHINE OPERATOR CBC W/DIFF AUTOMATED Routine 05/12/2019 6:29 AM BUTTON CUTTING MACHINE OPERATOR POCT GLUCOSE - CHONG DOCKED DEVICE Routine 05/12/2019 6:28 AM BUTTON CUTTING MACHINE OPERATOR POCT GLUCOSE - CHONG DOCKED DEVICE Routine 05/11/2019 8:34 PM BUTTON CUTTING MACHINE OPERATOR POCT GLUCOSE - CHONG DOCKED DEVICE Routine 05/11/2019 5:18 PM BUTTON CUTTING MACHINE OPERATOR POCT GLUCOSE - CHONG DOCKED DEVICE Routine 05/11/2019 11:59 AM BUTTON CUTTING MACHINE OPERATOR CBC W/DIFF AUTOMATED Routine 05/11/2019 6:36 AM BUTTON CUTTING MACHINE OPERATOR POCT GLUCOSE - CHONG DOCKED DEVICE Routine 05/11/2019 6:24 AM BUTTON CUTTING MACHINE OPERATOR POCT GLUCOSE - CHONG DOCKED DEVICE Routine 05/10/2019 8:46 PM BUTTON CUTTING MACHINE OPERATOR POCT GLUCOSE - CHONG DOCKED DEVICE Routine 05/10/2019 5:08 PM BUTTON CUTTING MACHINE OPERATOR POCT GLUCOSE - CHONG DOCKED DEVICE Routine 05/10/2019 11:38 AM BUTTON CUTTING MACHINE OPERATOR POCT GLUCOSE - CHONG DOCKED DEVICE Routine 05/10/2019 6:18 AM BUTTON CUTTING MACHINE OPERATOR BASIC METABOLIC PANEL Routine 05/10/2019 5:38 AM BUTTON CUTTING MACHINE OPERATOR CBC W/DIFF AUTOMATED Routine 05/10/2019 5:38 AM BUTTON CUTTING MACHINE OPERATOR POCT GLUCOSE - CHONG DOCKED DEVICE Routine 05/09/2019 8:00 PM BUTTON CUTTING MACHINE OPERATOR POCT GLUCOSE - CHONG DOCKED DEVICE Routine 05/09/2019 5:03 PM BUTTON CUTTING MACHINE OPERATOR IR MIDLINE PLACEMENT GREATER 3YR Today 05/09/2019 3:16 PM BUTTON CUTTING MACHINE OPERATOR POCT GLUCOSE - CHONG DOCKED DEVICE Routine 05/09/2019 11:22 AM BUTTON CUTTING MACHINE OPERATOR BASIC METABOLIC PANEL Routine 05/09/2019 7:38 AM BUTTON CUTTING MACHINE OPERATOR CBC W/DIFF AUTOMATED Routine 05/09/2019 7:38 AM BUTTON CUTTING MACHINE OPERATOR POCT GLUCOSE - CHONG DOCKED DEVICE Routine 05/09/2019 4:53 AM BUTTON CUTTING MACHINE OPERATOR POCT GLUCOSE - CHONG DOCKED DEVICE Routine 05/08/2019 8:55 PM BUTTON CUTTING MACHINE OPERATOR POCT GLUCOSE - CHONG DOCKED DEVICE Routine 05/08/2019 4:08 PM BUTTON CUTTING MACHINE OPERATOR POCT GLUCOSE - CHONG DOCKED DEVICE Routine 05/08/2019 11:40 AM BUTTON CUTTING MACHINE OPERATOR USV ART REST W REBECCA LOW EXT Today 05/08/2019 11:02 AM BUTTON CUTTING MACHINE OPERATOR POCT GLUCOSE - CHONG DOCKED DEVICE Routine 05/08/2019 6:20 AM BUTTON CUTTING MACHINE OPERATOR HEMOGLOBIN, GLYCOSYLATED Routine 05/08/2019 6:16 AM BUTTON CUTTING MACHINE OPERATOR IRON SAT PANEL (IRON,IBC,%SAT) Routine 05/08/2019 6:16 AM BUTTON CUTTING MACHINE OPERATOR VITAMIN B-12 Routine 05/08/2019 6:16 AM BUTTON CUTTING MACHINE OPERATOR BASIC METABOLIC PANEL Routine 05/08/2019 6:16 AM BUTTON CUTTING MACHINE OPERATOR FOLIC ACID SERUM Routine 05/08/2019 6:16 AM BUTTON CUTTING MACHINE OPERATOR CBC W/DIFF AUTOMATED Routine 05/08/2019 6:16 AM BUTTON CUTTING MACHINE OPERATOR FERRITIN Routine 05/08/2019 6:16 AM BUTTON CUTTING MACHINE OPERATOR HC BODY FLUID CULTURE Routine 05/08/2019 3:35 AM BUTTON CUTTING MACHINE OPERATOR MRSA SCREENING STAT 05/08/2019 3:15 AM BUTTON CUTTING MACHINE OPERATOR POCT GLUCOSE - CHONG DOCKED DEVICE Routine 05/07/2019 11:32 PM BUTTON CUTTING MACHINE OPERATOR URINALYSIS WI REFLEX TO CULTURE STAT 05/07/2019 4:40 PM BUTTON CUTTING MACHINE OPERATOR URINE BACTERIA CULTURE STAT 0 4:40 PM BUTTON CUTTING MACHINE OPERATOR LACTIC ACID TIMED 05/07/2019 4:40 PM BUTTON CUTTING MACHINE OPERATOR LACTIC ACID TIMED 05/07/2019 2:17 PM BUTTON CUTTING MACHINE OPERATOR POCT KETONES Routine 05/07/2019 12:59 PM BUTTON CUTTING MACHINE OPERATOR COMPREHENSIVE METABOLIC PANEL STAT 05/07/2019 12:32 PM BUTTON CUTTING MACHINE OPERATOR LACTIC ACID TIMED 05/07/2019 12:32 PM BUTTON CUTTING MACHINE OPERATOR CBC W/DIFF AUTOMATED STAT 05/07/2019 12:32 PM BUTTON CUTTING MACHINE OPERATOR MAGNESIUM STAT 05/07/2019 12:32 PM BUTTON CUTTING MACHINE OPERATOR CULTURE, BACTERIA, BLOOD STAT 05/07/2019 12:31 PM BUTTON CUTTING MACHINE OPERATOR CULTURE, BACTERIA, BLOOD STAT 05/07/2019 12:17 PM BUTTON CUTTING MACHINE OPERATOR POCT GLUCOSE - CHONG DOCKED DEVICE Routine 05/07/2019 11:50 AM BUTTON CUTTING MACHINE OPERATOR documented in this encounter Results * (ABNORMAL) POCT glucose (05/17/2019 5:08 AM BUTTON CUTTING MACHINE OPERATOR) GLUCOSE POC 279(H) 70 - 99 mg/dL 05/17/2019 5:20 AM BUTTON CUTTING MACHINE OPERATOR [facility] ORDERS INTERFACE 05/17/2019 5:08 AM BUTTON CUTTING MACHINE OPERATOR Loraine Penaloza MD POCT ORDERABLES - GILMA CE Final Result [facility] ORDERS INTERFACE US * (ABNORMAL) CBC W/DIFF AUTOMATED (05/17/2019 4:38 AM BUTTON CUTTING MACHINE OPERATOR) WBC 6.6 4.5 - 11.0 x10'3/uL 05/17/2019 5:43 AM [facility] RBC 2.77(L) 4.20 - 5.40 x10'6/uL 05/17/2019 5:43 AM [facility] HGB 8.1(L) 12.0 - 16.0 G/DL 05/17/2019 5:43 AM [facility] HCT 25.3(L) 38.0 - 48.0 % 05/17/2019 5:43 AM [facility] MCV 91.3 81.0 - 99.0 FL 05/17/2019 5:43 AM [facility] MCH 29.2 27.0 - 31.0 PG 05/17/2019 5:43 AM [facility] MCHC 32.0 32.0 - 36.0 G/DL 05/17/2019 5:43 AM [facility] RDW 14.8(H) 11.5 - 14.5 % 05/17/2019 5:43 AM [facility] PLT 212 130 - 400 x10'3/uL 05/17/2019 5:43 AM [facility] MPV 9.9 9.3 - 12.2 FL 05/17/2019 5:43 AM [facility] DIFFERENTIAL TYPE AUTOMATED DIFFERENTIAL 05/17/2019 5:43 AM [facility] NEUTROPHILS % 69.7 % 05/17/2019 5:43 AM [facility] LYMPHOCYTES % 17.8 % 05/17/2019 5:43 AM [facility] MONOCYTES % 9.8 % 05/17/2019 5:43 AM [facility] EOSINOPHILS 1.4 % 05/17/2019 5:43 AM [facility] BASOPHILS 0.5 % 05/17/2019 5:43 AM [facility] IMMATURE GRANS % 0.8 % 05/17/19 20 5:43 AM [facility] ABS. NEUTROPHILS TOTAL 4.63 1.80 - 7.70 x10'3/uL 05/17/2019 5:43 AM [facility] ABS. LYMPHOCYTES 1.18 1.00 - 4.80 x10'3/uL 05/17/2019 5:43 AM [facility] ABS. MONOCYTES 0.65 0.24 - 0.86 x10'3/uL 05/17/2019 5:43 AM [facility] ABS. EOSINOPHILS 0.09 0.04 - 0.36 x10'3/uL 05/17/2019 5:43 AM [facility] ABS. BASOPHILS 0.03 0.01 - 0.08 x10'3/uL 05/17/2019 5:43 AM [facility] ABS. IMMATURE GRANULOCYTES 0.05 0.00 - 0.49 x10'3/uL 05/17/2019 5:43 AM [facility] 05/17/2019 4:38 AM BUTTON CUTTING MACHINE OPERATOR Fabiola Carter MD LABORATORY Final Result [facility] [address] [place] [address], [place] [phone] * (ABNORMAL) BASIC METABOLIC PANEL (05/17/2019 4:38 AM BUTTON CUTTING MACHINE OPERATOR) [facility] GLUCOSE 187(H) 70 - 99 MG/DL 05/17/2019 6:02 AM [facility] BUN 32(H) 7 - 18 MG/DL 05/17/2019 6:02 AM [facility] CREATININE S/P/B 1.16(H) 0.55 - 1.02 MG/DL 05/17/2019 6:02 AM [facility] SODIUM S/P/B 136 136 - 145 MMOL/L 05/17/2019 6:02 AM [facility] POTASSIUM S/P/B 3.7 3.5 - 5.1 MMOL/L 05/17/2019 6:02 AM [facility] CHLORIDE S/P/B 96(L) 100 - 108 MMOL/L 05/17/2019 6:02 AM [facility] CO2 34.1(H) 21 - 32 MMOL/L 05/17/2019 6:02 AM [facility] CALCIUM S/P/B 9.5 8.5 - 10.1 MG/DL 05/17/2019 6:02 AM [facility] ANION GAP 5.9 5 - 15 MMOL/L 05/17/2019 6:02 AM [facility] BUN CREATININE RATIO 27.6(H) 6 - 26 05/17/2019 6:02 AM [facility] EGFR NON-AFR. AMER. 50(L) >90 ML/MIN/1.7 3 M2 05/17/2019 6:02 AM [facility] EGFR AFR. AMER. 58(L) >90 ML/MIN/1.7 3 M2 05/17/2019 6:02 AM [facility] Comment: NOTE: eGFR is not calculated for patients <18 years of age. This is an estimated GFR (CKD EPI) and should not be used for calculating drug doses. 05/17/2019 4:38 AM BUTTON CUTTING MACHINE OPERATOR us Fabiola Carter MD LABORATORY Final Result Performing Organization Address [facility] Co de Phone Number [facility] [address] [place] [address], [place] [phone] * (ABNORMAL) POCT glucose (05/16/2019 8:56 PM BUTTON CUTTING MACHINE OPERATOR) GLUCOSE POC 352(H) 70 - 99 mg/dL 05/16/2019 9:07 PM BUTTON CUTTING MACHINE OPERATOR [facility] LAB ORDERS INTERFACE 05/16/2019 8:56 PM BUTTON CUTTING MACHINE OPERATOR us Loraine Penaloza MD POCT ORDERABLES - GILMA CE Final Result Performing Organization Address [facility] Co de Phone Number [facility] LAB ORDERS INTERFACE US * (ABNORMAL) POCT glucose (05/16/2019 4:11 PM BUTTON CUTTING MACHINE OPERATOR) GLUCOSE POC 190(H) 70 - 99 mg/dL 05/16/2019 5:06 PM BUTTON CUTTING MACHINE OPERATOR [facility] LAB ORDERS INTERFACE 05/16/2019 4:11 PM BUTTON CUTTING MACHINE OPERATOR us Loraine Penaloza MD POCT ORDERABLES - GILMA CE Final Result Performing Organization Address [facility] Co de Phone Number [facility] LAB ORDERS INTERFACE US * (ABNORMAL) POCT glucose (05/16/2019 11:44 AM BUTTON CUTTING MACHINE OPERATOR) GLUCOSE POC 218(H) 70 - 99 mg/dL 05/16/2019 12:53 PM BUTTON CUTTING MACHINE OPERATOR [facility] LAB ORDERS INTERFACE 05/16/2019 11:4 4 AM BUTTON CUTTING MACHINE OPERATOR us Loraine Penaloza MD POCT ORDERABLES - GILMA CE Final Result Performing Organization Address [facility] Co de Phone Number [facility] LAB ORDERS INTERFACE US * (ABNORMAL) CBC W/DIFF AUTOMATED (05/16/2019 6:04 AM [facility]) [facility] Signature WBC 6.5 4.5 - 11.0 x10'3/uL 05/16/2019 7:08 [facility] RBC 2.71(L) 4.20 - 5.40 x10'6/uL 05/16/2019 7:08 AM [facility] HGB 8.0(L) 12.0 - 16.0 G/DL 05/16/2019 7:08 AM [facility] HCT 24.5(L) 38.0 - 48.0 % 05/16/2019 7:08 AM [facility] MCV 90.4 81.0 - 99.0 FL 05/16/2019 7:08 [facility] MCH 29.5 27.0 - 31.0 PG 05/16/2019 7:08 AM [facility] MCHC 32.7 32.0 - 36.0 G/DL 05/16/2019 7:08 [facility] RDW 15.5(H) 11.5 - 14.5 % 05/16/2019 7:08 AM [facility] PLT 224 130 - 400 x10'3/uL 05/16/2019 7:08 [facility] MPV 9.6 9.3 - 12.2 FL 05/16/2019 7:08 [facility] DIFFERENTIAL TYPE AUTOMATED DIFFERENTIAL 05/16/2019 7:08 AM [facility] NEUTROPHILS % 70.8 % 05/16/2019 7:08 AM [facility] LYMPHOCYTES % 16.4 % 05/16/2019 7:08 AM [facility] MONOCYTES % 10.0 % 05/16/2019 7:08 [facility] EOSINOPHILS 1.4 % 05/16/2019 7:08 [facility] BASOPHILS 0.5 % 05/16/2019 7:08 [facility] IMMATURE GRANS % 0.9 % 05/16/19 20 7:08 AM [facility] ABS. NEUTROPHILS TOTAL 4.59 1.80 - 7.70 x10'3/uL 05/16/2019 7:08 [facility] ABS. LYMPHOCYTES 1.06 1.00 - 4.80 x10'3/uL 05/16/2019 7:08 [facility] ABS. MONOCYTES 0.65 0.24 - 0.86 x10'3/uL 05/16/2019 7:08 [facility] ABS. EOSINOPHILS 0.09 0.04 - 0.36 x10'3/uL 05/16/2019 7:08 AM [facility] ABS. BASOPHILS 0.03 0.01 - 0.08 x10'3/uL 05/16/2019 7:08 AM [facility] ABS. IMMATURE GRANULOCYTES 0.06 0.00 - 0.49 x10'3/uL 05/16/2019 7:08 AM [facility] 05/16/2019 6:04 AM [facility] Fabiola Carter MD LABORATORY Final Result [facility] [address] [place] [address], * (ABNORMAL) BASIC METABOLIC PANEL (05/16/2019 6:04 AM BUTTON CUTTING MACHINE OPERATOR) GLUCOSE 160(H) 70 - 99 MG/DL 05/16/2019 7:25 [facility] BUN 27(H) 7 - 18 MG/DL 05/16/2019 7:25 [facility] CREATININE S/P/B 0.87 0.55 - 1.02 MG/DL 05/16/2019 7:25 AM [facility] SODIUM S/P/B 137 136 - 145 MMOL/L 05/16/2019 7:25 AM [facility] POTASSIUM S/P/B 3.6 3.5 - 5.1 MMOL/L 05/16/2019 7:25 AM [facility] CHLORIDE S/P/B 98(L) 100 - 108 MMOL/L 05/16/2019 7:25 AM [facility] CO2 35.2(H) 21 - 32 MMOL/L 05/16/2019 7:25 AM [facility] CALCIUM S/P/B 8.9 8.5 - 10.1 MG/DL 05/16/2019 7:25 AM [facility] ANION GAP 3.8(L) 5 - 15 MMOL/L 05/16/2019 7:25 AM [facility] BUN CREATININE RATIO 31.0(H) 6 - 26 05/16/2019 7:25 [facility] EGFR NON-AFR. AMER. 70(L) >90 ML/MIN/1.7 3 M2 05/16/2019 7:25 [facility] EGFR AFR. AMER. 82(L) >90 ML/MIN/1.7 3 M2 05/16/2019 7:25 AM [facility] Comment: NOTE: eGFR is not calculated for patients <18 years of age. This is an estimated GFR (CKD EPI) and should not be used for calculating drug doses. 05/16/2019 6:04 AM BUTTON CUTTING MACHINE OPERATOR Fabiola Carter MD LABORATORY Final Result [facility] [address] [place] [address], [place] [phone] * (ABNORMAL) POCT glucose (05/16/2019 5:36 AM BUTTON CUTTING MACHINE OPERATOR) GLUCOSE POC 149(H) 70 - 99 mg/dL 05/16/2019 6:42 AM BUTTON CUTTING MACHINE OPERATOR [facility] LAB ORDERS INTERFACE 05/16/2019 5:36 AM BUTTON CUTTING MACHINE OPERATOR us Loraine Penaloza MD POCT ORDERABLES - GILMA CE Final Result Performing Organization Address [facility]/ZIP Co de Phone Number [facility] LAB ORDERS INTERFACE US * (ABNORMAL) POCT glucose (05/15/2019 8:43 PM BUTTON CUTTING MACHINE OPERATOR) GLUCOSE POC 189(H) 70 - 99 mg/dL 05/16/2019 11:47 AM BUTTON CUTTING MACHINE OPERATOR [facility] LAB ORDERS INTERFACE 05/15/2019 8:43 PM BUTTON CUTTING MACHINE OPERATOR us Loraine Penaloza MD POCT ORDERABLES - GILMA CE Final Result Performing Organization Address [facility] Co de Phone Number [facility] LAB ORDERS INTERFACE US * (ABNORMAL) POCT glucose (05/15/2019 4:44 PM BUTTON CUTTING MACHINE OPERATOR) GLUCOSE POC 124(H) 70 - 99 mg/dL 05/15/2019 6:39 PM BUTTON CUTTING MACHINE OPERATOR [facility] LAB ORDERS INTERFACE 05/15/2019 4:44 PM BUTTON CUTTING MACHINE OPERATOR us Loraine Penaloza MD POCT ORDERABLES - GILMA CE Final Result Performing Organization Address City/[facility]/ZIP Co de Phone Number [facility] LAB ORDERS INTERFACE US * Transfuse RBC (05/15/2019 3:40 PM BUTTON CUTTING MACHINE OPERATOR) us Fabiola Carter MD NURSING TREATMENT ORDERABLES - BLOOD ADMIN Final Result * Transfuse RBC (05/15/2019 3:40 PM BUTTON CUTTING MACHINE OPERATOR) us Fabiola Carter MD NURSING TREATMENT ORDERABLES - BLOOD ADMIN Final Result * (ABNORMAL) POCT glucose (05/15/2019 11:42 AM BUTTON CUTTING MACHINE OPERATOR) GLUCOSE POC 192(H) 70 - 99 mg/dL 05/15/2019 12:55 PM BUTTON CUTTING MACHINE OPERATOR [facility] LAB ORDERS INTERFACE 05/15/2019 11:4 2 AM BUTTON CUTTING MACHINE OPERATOR us Loraine Penaloza MD POCT ORDERABLES - GILMA CE Final Result [facility] LAB ORDERS INTERFACE US * TYPE & SCREEN (05/15/2019 9:34 AM BUTTON CUTTING MACHINE OPERATOR) UNITS ORDERED 1 05/15/2019 11:05 [facility] ABO/RH O POSITIVE 05/15/2019 10:43 AM [facility] ANTIBODY SCREEN NEGATIVE 0 10:43 [facility] SAMPLE EXPIRATION 05/18/2019,2359 05/15/2019 10:43 AM [facility] BLOOD UNIT NUMBER [id number] 05/15/2019 11:05 AM [facility] PRODUCT: PC LEUKO PHERE BAG2 05/15/2019 11:05 [facility] UNIT DIVISION 00 05/15/2019 11:05 [facility] BLOOD UNIT STATUS TRANSFUSED,FINAL 05/16/2019 9:25 AM [facility] ISSUE DATE/TIME [id number] 020 9:25 AM [facility] PRODUCT CODE [id number] 05/16/2019 9:25 AM [facility] ABO/RH Unit O POS 05/16/2019 9:25 [facility] ABO/RH UNIT ISBT CODE 5100 05/16/2019 9:25 [facility] BLOOD UNIT EXPIRATION DATE [id number] 05/16/2019 9:25 AM [facility] TRANSFUSION STATUS OK TO TRANSFUSE 05/15/2019 11:05 AM [facility] CROSSMATCH COMPATIBLE-EXM 05/15/2019 11:05 AM BUTTON CUTTING MACHINE OPERATOR [facility] 05/15/2019 9:34 AM BUTTON CUTTING MACHINE OPERATOR us Fabiola Carter MD BLOOD BANK TEST ORDERABLES Debbie l Result [facility] [address] [place] [address], [place] [phone] * (ABNORMAL) POCT glucose (05/15/2019 6:33 AM BUTTON CUTTING MACHINE OPERATOR) GLUCOSE POC 156(H) 70 - 99 mg/dL 05/15/2019 6:48 AM BUTTON CUTTING MACHINE OPERATOR [facility] LAB ORDERS INTERFACE 05/15/2019 6:33 AM BUTTON CUTTING MACHINE OPERATOR us Loraine Penaloza MD POCT ORDERABLES - GILMA CE Final Result [facility] LAB ORDERS INTERFACE US * (ABNORMAL) CBC W/DIFF AUTOMATED (05/15/2019 4:57 AM BUTTON CUTTING MACHINE OPERATOR) WBC 7.2 4.5 - 11.0 x10'3/uL 05/15/2019 6:08 AM BUTTON CUTTING MACHINE OPERATOR [facility] RBC 2.28(L) 4.20 - 5.40 x10'6/uL 05/15/2019 6:08 [facility] HGB 6.7(LL) 12.0 - 16.0 G/DL 05/15/2019 6:08 AM BUTTON CUTTING MACHINE OPERATOR [facility] Comment: This result has been called to FELICIA TAMAYO by CAROLYN CARNEY on 05 15 2019 at 0608, and has been read back. HCT 21.2(LL) 38.0 - 48.0 % 05/15/2019 6:08 AM [facility] Comment: This result has been called to FELICIA TAMAYO by CAROLYN CARNEY on 05 15 2019 at 0608, and has been read back. MCV 93.0 81.0 - 99.0 FL 05/15/2019 6:08 AM [facility] MCH 29.4 27.0 - 31.0 PG 05/15/2019 6:08 AM [facility] MCHC 31.6(L) 32.0 - 36.0 G/DL 05/15/2019 6:08 AM [facility] RDW 14.9(H) 11.5 - 14.5 % 05/15/2019 6:08 AM [facility] PLT 223 130 - 400 x10'3/uL 05/15/2019 6:08 AM [facility] MPV 10.0 9.3 - 12.2 FL 05/15/2019 6:08 [facility] DIFFERENTIAL TYPE AUTOMATED DIFFERENTIAL 05/15/2019 6:08 AM [facility] NEUTROPHILS % 73.0 % 05/15/2019 6:08 AM [facility] LYMPHOCYTES % 14.2 % 05/15/2019 6:08 AM [facility] MONOCYTES % 9.5 % 05/15/2019 6:08 [facility] EOSINOPHILS 1.8 % 05/15/2019 6:08 AM [facility] BASOPHILS 0.4 % 05/15/2019 6:08 AM [facility] IMMATURE GRANS % 1.1 % 05/15/19 20 6:08 AM [facility] ABS. NEUTROPHILS TOTAL 5.27 1.80 - 7.70 x10'3/uL 05/15/2019 6:08 AM BUTTON CUTTING MACHINE OPERATOR [facility] ABS. LYMPHOCYTES 1.03 1.00 - 4.80 x10'3/uL 05/15/2019 6:08 AM [facility] ABS. MONOCYTES 0.69 0.24 - 0.86 x10'3/uL 05/15/2019 6:08 AM BUTTON CUTTING MACHINE OPERATOR [facility] ABS. EOSINOPHILS 0.13 0.04 - 0.36 x10'3/uL 05/15/2019 6:08 AM [facility] ABS. BASOPHILS 0.03 0.01 - 0.08 x10'3/uL 05/15/2019 6:08 AM [facility] ABS. IMMATURE GRANULOCYTES 0.08 0.00 - 0.49 x10'3/uL 05/15/2019 6:08 AM [facility] 05/15/2019 4:57 AM BUTTON CUTTING MACHINE OPERATOR Beth Cm MD LABORATORY Final Result [facility] [address] [place] [address], [place] [phone] * (ABNORMAL) BASIC METABOLIC PANEL (05/15/2019 4:57 AM BUTTON CUTTING MACHINE OPERATOR) [facility] GLUCOSE 133(H) 70 - 99 MG/DL 05/15/2019 6:21 AM BUTTON CUTTING MACHINE OPERATOR [facility] BUN 31(H) 7 - 18 MG/DL 05/15/2019 6:21 [facility] CREATININE S/P/B 1.04(H) 0.55 - 1.02 MG/DL 05/15/2019 6:21 AM BUTTON CUTTING MACHINE OPERATOR [facility] SODIUM S/P/B 136 136 - 145 MMOL/L 05/15/2019 6:21 AM [facility] POTASSIUM S/P/B 3.8 3.5 - 5.1 MMOL/L 05/15/2019 6:21 AM [facility] CHLORIDE S/P/B 99(L) 100 - 108 MMOL/L 05/15/2019 6:21 AM [facility] CO2 33.2(H) 21 - 32 MMOL/L 05/15/2019 6:21 [facility] CALCIUM S/P/B 8.9 8.5 - 10.1 MG/DL 05/15/2019 6:21 AM [facility] ANION GAP 3.8(L) 5 - 15 MMOL/L 05/15/2019 6:21 AM [facility] BUN CREATININE RATIO 29.8(H) 6 - 26 05/15/2019 6:21 [facility] EGFR NON-AFR. AMER. 57(L) >90 ML/MIN/1.7 3 M2 05/15/2019 6:21 [facility] EGFR AFR. AMER. 66(L) >90 ML/MIN/1.7 3 M2 05/15/2019 6:21 [facility] Comment: NOTE: eGFR is not calculated for patients <18 years of age. This is an estimated GFR (CKD EPI) and should not be used for calculating drug doses. 05/15/2019 4:57 AM BUTTON CUTTING MACHINE OPERATOR us Beth Cm MD LABORATORY Final Result [facility] [address] [place] [address], [place] [phone] * (ABNORMAL) POCT glucose (05/14/2019 9:25 PM BUTTON CUTTING MACHINE OPERATOR) GLUCOSE POC 181(H) 70 - 99 mg/dL 05/15/2019 1:52 AM BUTTON CUTTING MACHINE OPERATOR [facility] LAB ORDERS INTERFACE 05/14/2019 9:25 PM BUTTON CUTTING MACHINE OPERATOR Loraine Penaloza MD POCT ORDERABLES - GILMA CE Final Result Performing Organization Address [facility] Co de Phone Number [facility] LAB ORDERS INTERFACE US * (ABNORMAL) POCT glucose (05/14/2019 4:29 PM BUTTON CUTTING MACHINE OPERATOR) GLUCOSE POC 167(H) 70 - 99 mg/dL 05/15/2019 1:18 AM BUTTON CUTTING MACHINE OPERATOR [facility] LAB ORDERS INTERFACE 05/14/2019 4:29 PM BUTTON CUTTING MACHINE OPERATOR Loraine Penaloza MD POCT ORDERABLES - GILMA CE Final Result Performing Organization Address [facility] de Phone Number [facility] LAB ORDERS INTERFACE US * (ABNORMAL) HEMOGLOBIN AND HEMATOCRIT (05/14/2019 3:42 PM BUTTON CUTTING MACHINE OPERATOR) HGB 7.6(L) 12.0 - 16.0 G/DL 05/14/2019 4:30 PM BUTTON CUTTING MACHINE OPERATOR [facility] HCT 23.7(L) 38.0 - 48.0 % 05/14/2019 4:30 PM BUTTON CUTTING MACHINE OPERATOR [facility] 05/14/2019 3:42 PM BUTTON CUTTING MACHINE OPERATOR us Fabiola Carter MD LABORATORY Final Result Performing Organization Address City/[facility] Co de Phone Number [facility] [address] [place] [address], [place] [phone] * (ABNORMAL) POCT glucose (05/14/2019 11:54 AM BUTTON CUTTING MACHINE OPERATOR) GLUCOSE POC 248(H) 70 - 99 mg/dL 05/14/2019 11:56 AM BUTTON CUTTING MACHINE OPERATOR [facility] LAB ORDERS INTERFACE 05/14/2019 11:5 4 AM BUTTON CUTTING MACHINE OPERATOR us Loraine Penaloza MD POCT ORDERABLES - GILMA CE Final Result Performing Organization Address City/[facility] Co de Phone Number [facility] LAB ORDERS INTERFACE US * (ABNORMAL) POCT glucose (05/14/2019 6:42 AM BUTTON CUTTING MACHINE OPERATOR) Pathologist [facility] GLUCOSE POC 188(H) 70 - 99 mg/dL 05/14/2019 11:51 AM BUTTON CUTTING MACHINE OPERATOR [facility] LAB ORDERS INTERFACE 05/14/2019 6:42 AM BUTTON CUTTING MACHINE OPERATOR us Loraine Penaloza MD POCT ORDERABLES - GILMA CE Final Result Performing Organization Address [facility] de Phone Number [facility] LAB ORDERS INTERFACE US * (ABNORMAL) CBC W/DIFF AUTOMATED (05/14/2019 4:35 AM BUTTON CUTTING MACHINE OPERATOR) [facility] WBC 7.4 4.5 - 11.0 x10'3/uL 05/14/2019 6:03 AM BUTTON CUTTING MACHINE OPERATOR [facility] RBC 2.47(L) 4.20 - 5.40 x10'6/uL 05/14/2019 6:03 [facility] HGB 7.3(LL) 12.0 - 16.0 G/DL 05/14/2019 6:03 AM BUTTON CUTTING MACHINE OPERATOR [facility] Comment: This result has been called to TANISHA LIM by CAROLYN CARNEY on 05 14 2019 at 0602, and has been read back. HCT 22.7(LL) 38.0 - 48.0 % 05/14/2019 6:03 AM BUTTON CUTTING MACHINE OPERATOR [facility] Comment: This result has been called to TANISHA LIM by CAROLYN CARNEY on 05 14 2019 at 0602, and has been read back. MCV 91.9 81.0 - 99.0 FL 05/14/2019 6:03 AM BUTTON CUTTING MACHINE OPERATOR [facility] MCH 29.6 27.0 - 31.0 PG 05/14/2019 6:03 [facility] MCHC 32.2 32.0 - 36.0 G/DL 05/14/2019 6:03 [facility] RDW 14.6(H) 11.5 - 14.5 % 05/14/2019 6:03 [facility] PLT 229 130 - 400 x10'3/uL 05/14/2019 6:03 [facility] MPV 9.8 9.3 - 12.2 FL 05/14/2019 6:03 [facility] DIFFERENTIAL TYPE AUTOMATED DIFFERENTIAL 05/14/2019 6:03 [facility] NEUTROPHILS % 71.3 % 05/14/2019 6:03 [facility] LYMPHOCYTES % 15.9 % 05/14/2019 6:03 [facility] MONOCYTES % 9.2 % 05/14/2019 6:03 [facility] EOSINOPHILS 2.0 % 05/14/2019 6:03 AM [facility] BASOPHILS 0.5 % 05/14/2019 6:03 AM [facility] IMMATURE GRANS % 1.1 % 05/14/19 20 6:03 AM [facility] ABS. NEUTROPHILS TOTAL 5.27 1.80 - 7.70 x10'3/uL 05/14/2019 6:03 [facility] ABS. LYMPHOCYTES 1.18 1.00 - 4.80 x10'3/uL 05/14/2019 6:03 [facility] ABS. MONOCYTES 0.68 0.24 - 0.86 x10'3/uL 05/14/2019 6:03 [facility] ABS. EOSINOPHILS 0.15 0.04 - 0.36 x10'3/uL 05/14/2019 6:03 [facility] ABS. BASOPHILS 0.04 0.01 - 0.08 x10'3/uL 05/14/2019 6:03 [facility] ABS. IMMATURE GRANULOCYTES 0.08 0.00 - 0.49 x10'3/uL 05/14/2019 6:03 [facility] 05/14/2019 4:35 AM BUTTON CUTTING MACHINE OPERATOR us Beth Cm MD LABORATORY Final Result [facility] [address] [place] [address], [place] [phone] * (ABNORMAL) BASIC METABOLIC PANEL (05/14/2019 4:35 AM BUTTON CUTTING MACHINE OPERATOR) GLUCOSE 160(H) 70 - 99 MG/DL 05/14/2019 6:22 [facility] BUN 27(H) 7 - 18 MG/DL 05/14/2019 6:22 [facility] CREATININE S/P/B 0.87 0.55 - 1.02 MG/DL 05/14/2019 6:22 AM [facility] SODIUM S/P/B 134(L) 136 - 145 MMOL/L 05/14/2019 6:22 [facility] POTASSIUM S/P/B 4.2 3.5 - 5.1 MMOL/L 05/14/2019 6:22 AM [facility] CHLORIDE S/P/B 99(L) 100 - 108 MMOL/L 05/14/2019 6:22 [facility] CO2 31.1 21 - 32 MMOL/L 05/14/2019 6:22 [facility] CALCIUM S/P/B 8.9 8.5 - 10.1 MG/DL 05/14/2019 6:22 AM BUTTON CUTTING MACHINE OPERATOR [facility] ANION GAP 3.9(L) 5 - 15 MMOL/L 05/14/2019 6:22 [facility] BUN CREATININE RATIO 31.0(H) 6 - 26 05/14/2019 6:22 [facility] EGFR NON-AFR. AMER. 70(L) >90 ML/MIN/1.7 3 M2 05/14/2019 6:22 [facility] EGFR AFR. AMER. 82(L) >90 ML/MIN/1.7 3 M2 05/14/2019 6:22 [facility] Comment: NOTE: eGFR is not calculated for patients <18 years of age. This is an estimated GFR (CKD EPI) and should not be used for calculating drug doses. 05/14/2019 4:35 AM BUTTON CUTTING MACHINE OPERATOR us Beth Cm MD LABORATORY Final Result [facility] [address] [place] [address], [place] [phone] * (ABNORMAL) POCT glucose (05/13/2019 9:11 PM BUTTON CUTTING MACHINE OPERATOR) GLUCOSE POC 163(H) 70 - 99 mg/dL 05/13/2019 10:32 PM BUTTON CUTTING MACHINE OPERATOR [facility] LAB ORDERS INTERFACE 05/13/2019 9:11 PM BUTTON CUTTING MACHINE OPERATOR us Loraine Penaloza MD POCT ORDERABLES - GILMA CE Final Result [facility] LAB ORDERS INTERFACE US * (ABNORMAL) POCT glucose (05/13/2019 4:58 PM BUTTON CUTTING MACHINE OPERATOR) GLUCOSE POC 260(H) 70 - 99 mg/dL 05/13/2019 5:15 PM BUTTON CUTTING MACHINE OPERATOR [facility] LAB ORDERS INTERFACE 05/13/2019 4:58 PM BUTTON CUTTING MACHINE OPERATOR Loraine Penaloza MD POCT ORDERABLES - GILMA CE Final Result [facility] LAB ORDERS INTERFACE US * (ABNORMAL) POCT glucose (05/13/2019 12:02 PM BUTTON CUTTING MACHINE OPERATOR) GLUCOSE POC 246(H) 70 - 99 mg/dL 05/13/2019 12:46 PM BUTTON CUTTING MACHINE OPERATOR [facility] LAB ORDERS INTERFACE 05/13/2019 12:0 2 PM BUTTON CUTTING MACHINE OPERATOR Loraine Penaloza MD POCT ORDERABLES - GILMA CE Final Result Performing Organization Address City/[facility] Co de Phone Number [facility] LAB ORDERS INTERFACE US * ECG 12 lead (05/13/2019 11:54 AM BUTTON CUTTING MACHINE OPERATOR) 05/13/2019 11:5 4 AM BUTTON CUTTING MACHINE OPERATOR Narrative [facility] - 05/13/2019 8:53 PM BUTTON CUTTING MACHINE OPERATOR ?[facility] ? [address] [place] ? Test Date: ?2019-05-13 Pat Name: ? IRIS GIL ? Department: ? Room: ? J21722 Gender: ? Female ? Radiosonde Specialist: ?? JMV : ?1955 ? Requested By: BETH CM Order Number: [id number] ? Reading MD: ?? Halle Del Valle ? Measurements Intervals ?[address] ? Rate: ? 89 ? P: ?53 [place]: ? 150 ?QRS: ?-29 QRSD: ? 105 ?T: ?117 QT: ? 378 ? QTc: ?460 ? Interpretive Statements SINUS RHYTHM ANTERIOR MYOCARDIAL INFARCTION , OF INDETERMINATE AGE Nonspecific ST-T abnormality No previous ECG available for comparison ON CUTTING MACHINE OPERATOR Procedure Note Halle Del Valle MD - 05/13/[address] Test Date: 2019-05-13 Pat Name: IRIS GIL Department: Room: A01220 Gender: Female Radiosonde Specialist: KAYLEE : 1955 Requested By: BETH CM Order Number: [id number] Reading MD: Halle Del Valle Measurements Intervals [address] Rate: 89 P: 53 [place]: 150 QRS: -29 QRSD: 105 T: 117 QT: 378 QTc: 460 Interpretive Statements SINUS RHYTHM ANTERIOR MYOCARDIAL INFARCTION , OF INDETERMINATE AGE Nonspecific ST-T abnormality No previous ECG available for comparison ON CUTTING MACHINE OPERATOR us Beth Cm MD ECG ORDERABLES Final Result Performing Organization Address City/[facility]/ZIP Co de Phone Number [facility] * (ABNORMAL) POCT glucose (05/13/2019 5:20 AM BUTTON CUTTING MACHINE OPERATOR) GLUCOSE POC 213(H) 70 - 99 mg/dL 05/13/2019 6:24 AM BUTTON CUTTING MACHINE OPERATOR [facility] LAB ORDERS INTERFACE 05/13/2019 5:20 AM BUTTON CUTTING MACHINE OPERATOR us Loraine Penaloza MD POCT ORDERABLES - GILMA CE Final Result Performing Organization Address City/[facility]/ZIP Co de Phone Number [facility] LAB ORDERS INTERFACE US * (ABNORMAL) POCT glucose (05/12/2019 8:24 PM BUTTON CUTTING MACHINE OPERATOR) GLUCOSE POC 229(H) 70 - 99 mg/dL 05/12/2019 8:48 PM BUTTON CUTTING MACHINE OPERATOR [facility] LAB ORDERS INTERFACE 05/12/2019 8:24 PM BUTTON CUTTING MACHINE OPERATOR us Loraine Penaloza MD POCT ORDERABLES - GILMA CE Final Result [facility] LAB ORDERS INTERFACE US * (ABNORMAL) POCT glucose (05/12/2019 4:41 PM BUTTON CUTTING MACHINE OPERATOR) GLUCOSE POC 197(H) 70 - 99 mg/dL 05/12/2019 5:11 PM BUTTON CUTTING MACHINE OPERATOR [facility] LAB ORDERS INTERFACE 05/12/2019 4:41 PM BUTTON CUTTING MACHINE OPERATOR us Loraine Penaloza MD POCT ORDERABLES - GILMA CE Final Result Performing Organization Address [facility]/ZIP Co de Phone Number [facility] LAB ORDERS INTERFACE US * (ABNORMAL) POCT glucose (05/12/2019 11:56 AM BUTTON CUTTING MACHINE OPERATOR) GLUCOSE POC 212(H) 70 - 99 mg/dL 05/12/2019 12:48 PM BUTTON CUTTING MACHINE OPERATOR [facility] LAB ORDERS INTERFACE 05/12/2019 11:5 6 AM BUTTON CUTTING MACHINE OPERATOR us Loraine Penaloza MD POCT ORDERABLES - GILMA CE Final Result Performing Organization Address City/[facility] de Phone Number [facility] LAB ORDERS INTERFACE US * (ABNORMAL) BASIC METABOLIC PANEL (05/12/2019 6:29 AM BUTTON CUTTING MACHINE OPERATOR) [facility] GLUCOSE 97 70 - 99 MG/DL 05/12/2019 7:14 AM [facility] BUN 19(H) 7 - 18 MG/DL 05/12/2019 7:14 AM [facility] CREATININE S/P/B 0.63 0.55 - 1.02 MG/DL 05/12/2019 7:14 AM [facility] SODIUM S/P/B 139 136 - 145 MMOL/L 05/12/2019 7:14 AM [facility] POTASSIUM S/P/B 3.6 3.5 - 5.1 MMOL/L 05/12/2019 7:14 AM [facility] CHLORIDE S/P/B 104 100 - 108 MMOL/L 05/12/2019 7:14 AM [facility] CO2 30.6 21 - 32 MMOL/L 05/12/2019 7:14 AM [facility] CALCIUM S/P/B 8.5 8.5 - 10.1 MG/DL 05/12/2019 7:14 AM [facility] ANION GAP 4.4(L) 5 - 15 MMOL/L 05/12/2019 7:14 AM [facility] BUN CREATININE RATIO 30.0(H) 6 - 26 05/12/2019 7:14 AM [facility] EGFR NON-AFR. AMER. >90 >90 ML/MIN/1.7 3 M2 05/12/2019 7:14 AM [facility] EGFR AFR. AMER. >90 >90 ML/MIN/1.7 3 M2 05/12/2019 7:14 AM [facility] Comment: NOTE: eGFR is not calculated for patients <18 years of age. This is an estimated GFR (CKD EPI) and should not be used for calculating drug doses. 05/12/2019 6:29 AM BUTTON CUTTING MACHINE OPERATOR us Sharon Ortez NP LABORATORY Final Resul t [facility] [address] [place] [address], [place] [phone] * (ABNORMAL) CBC W/DIFF AUTOMATED (05/12/2019 6:29 AM BUTTON CUTTING MACHINE OPERATOR) WBC 6.3 4.5 - 11.0 x10'3/uL 05/12/2019 6:52 [facility] RBC 2.74(L) 4.20 - 5.40 x10'6/uL 05/12/2019 6:52 AM [facility] HGB 8.0(L) 12.0 - 16.0 G/DL 05/12/2019 6:52 AM [facility] HCT 25.0(L) 38.0 - 48.0 % 05/12/2019 6:52 AM [facility] MCV 91.2 80.0 - 94.0 FL 05/12/2019 6:52 AM [facility] MCH 29.2 27.0 - 31.0 PG 05/12/2019 6:52 AM [facility] MCHC 32.0 32.0 - 36.0 G/DL 05/12/2019 6:52 AM [facility] RDW 14.4 11.5 - 14.5 % 05/12/2019 6:52 [facility] PLT 245 130 - 400 x10'3/uL 05/12/2019 6:52 AM [facility] MPV 9.6 9.3 - 12.2 FL 05/12/2019 6:52 [facility] DIFFERENTIAL TYPE AUTOMATED DIFFERENTIAL 05/12/2019 6:52 AM [facility] NEUTROPHILS % 71.9 % 05/12/2019 6:52 AM [facility] LYMPHOCYTES % 16.1 % 05/12/2019 6:52 AM [facility] MONOCYTES % 7.5 % 05/12/2019 6:52 AM [facility] EOSINOPHILS 2.7 % 05/12/2019 6:52 AM [facility] BASOPHILS 0.5 % 05/12/2019 6:52 AM [facility] IMMATURE GRANS % 1.3 % 05/12/19 20 6:52 AM [facility] ABS. NEUTROPHILS TOTAL 4.51 1.80 - 7.70 x10'3/uL 05/12/2019 6:52 [facility] ABS. LYMPHOCYTES 1.01 1.00 - 4.80 x10'3/uL 05/12/2019 6:52 AM BUTTON CUTTING MACHINE OPERATOR [facility] ABS. MONOCYTES 0.47 0.24 - 0.86 x10'3/uL 05/12/2019 6:52 AM BUTTON CUTTING MACHINE OPERATOR [facility] ABS. EOSINOPHILS 0.17 0.04 - 0.36 x10'3/uL 05/12/2019 6:52 AM BUTTON CUTTING MACHINE OPERATOR [facility] ABS. BASOPHILS 0.03 0.01 - 0.08 x10'3/uL 05/12/2019 6:52 AM BUTTON CUTTING MACHINE OPERATOR [facility] ABS. IMMATURE GRANULOCYTES 0.08 0.00 - 0.49 x10'3/uL 05/12/2019 6:52 AM BUTTON CUTTING MACHINE OPERATOR [facility] 05/12/2019 6:29 AM BUTTON CUTTING MACHINE OPERATOR Sharon Ortez NP LABORATORY Final Resul t [facility] [address] [id number], [place] [phone] * POCT glucose (05/12/2019 6:28 AM BUTTON CUTTING MACHINE OPERATOR) GLUCOSE POC 95 70 - 99 mg/dL 05/12/2019 6:41 AM BUTTON CUTTING MACHINE OPERATOR [facility] ORDERS INTERFACE 05/12/2019 6:28 AM BUTTON CUTTING MACHINE OPERATOR us Loraine Penaloza MD POCT ORDERABLES - GILMA CE Final Result [facility] ORDERS INTERFACE US * (ABNORMAL) POCT glucose (05/11/2019 8:34 PM BUTTON CUTTING MACHINE OPERATOR) GLUCOSE POC 267(H) 70 - 99 mg/dL 05/11/2019 9:16 PM BUTTON CUTTING MACHINE OPERATOR [facility] ORDERS INTERFACE 05/11/2019 8:34 PM BUTTON CUTTING MACHINE OPERATOR Loraine Penaloza MD POCT ORDERABLES - GILMA CE Final Result [facility] ORDERS INTERFACE US * (ABNORMAL) POCT glucose (05/11/2019 5:18 PM BUTTON CUTTING MACHINE OPERATOR) GLUCOSE POC 216(H) 70 - 99 mg/dL 05/11/2019 5:56 PM BUTTON CUTTING MACHINE OPERATOR [facility] ORDERS INTERFACE 05/11/2019 5:18 PM BUTTON CUTTING MACHINE OPERATOR us Loraine Penaloza MD POCT ORDERABLES - GILMA CE Final Result [facility] ORDERS INTERFACE US * (ABNORMAL) POCT glucose (05/11/2019 11:59 AM BUTTON CUTTING MACHINE OPERATOR) GLUCOSE POC 205(H) 70 - 99 mg/dL 05/11/2019 9:16 PM BUTTON CUTTING MACHINE OPERATOR [facility] ORDERS INTERFACE 05/11/2019 11:5 9 AM BUTTON CUTTING MACHINE OPERATOR us Loraine Penaloza MD POCT ORDERABLES - GILMA CE Final Result Performing Organization Address City/[facility] Co de Phone Number [facility] ORDERS INTERFACE US * (ABNORMAL) CBC W/DIFF AUTOMATED (05/11/2019 6:36 AM BUTTON CUTTING MACHINE OPERATOR) [facility] WBC 7.8 4.5 - 11.0 x10'3/uL 05/11/2019 7:57 AM BUTTON CUTTING MACHINE OPERATOR [facility] RBC 2.64(L) 4.20 - 5.40 x10'6/uL 05/11/2019 7:57 AM BUTTON CUTTING MACHINE OPERATOR [facility] HGB 7.7(L) 12.0 - 16.0 G/DL 05/11/2019 7:57 [facility] HCT 24.1(L) 38.0 - 48.0 % 05/11/2019 7:57 AM [facility] MCV 91.3 81.0 - 99.0 FL 05/11/2019 7:57 AM [facility] MCH 29.2 27.0 - 31.0 PG 05/11/2019 7:57 AM [facility] MCHC 32.0 32.0 - 36.0 G/DL 05/11/2019 7:57 AM [facility] RDW 14.4 11.5 - 14.5 % 05/11/2019 7:57 AM [facility] PLT 265 130 - 400 x10'3/uL 05/11/2019 7:57 AM [facility] MPV 9.9 9.3 - 12.2 FL 05/11/2019 7:57 AM [facility] DIFFERENTIAL TYPE AUTOMATED DIFFERENTIAL 05/11/2019 7:57 AM [facility] NEUTROPHILS % 71.1 % 05/11/2019 7:57 AM [facility] LYMPHOCYTES % 15.9 % 05/11/2019 7:57 AM [facility] MONOCYTES % 7.9 % 05/11/2019 7:57 AM [facility] EOSINOPHILS 2.3 % 05/11/2019 7:57 AM [facility] BASOPHILS 0.6 % 05/11/2019 7:57 AM [facility] IMMATURE GRANS % 2.2 % 05/11/19 20 7:57 AM [facility] ABS. NEUTROPHILS TOTAL 5.55 1.80 - 7.70 x10'3/uL 05/11/2019 7:57 AM [facility] ABS. LYMPHOCYTES 1.24 1.00 - 4.80 x10'3/uL 05/11/2019 7:57 AM [facility] ABS. MONOCYTES 0.62 0.24 - 0.86 x10'3/uL 05/11/2019 7:57 AM BUTTON CUTTING MACHINE OPERATOR [facility] ABS. EOSINOPHILS 0.18 0.04 - 0.36 x10'3/uL 05/11/2019 7:57 AM BUTTON CUTTING MACHINE OPERATOR [facility] ABS. BASOPHILS 0.05 0.01 - 0.08 x10'3/uL 05/11/2019 7:57 AM BUTTON CUTTING MACHINE OPERATOR [facility] ABS. IMMATURE GRANULOCYTES 0.17 0.00 - 0.49 x10'3/uL 05/11/2019 7:57 AM BUTTON CUTTING MACHINE OPERATOR [facility] 05/11/2019 6:36 AM BUTTON CUTTING MACHINE OPERATOR us Ekaterina Barlow MD LABORATORY Final Result Performing Organization Address [facility] Co de Phone Number [facility] [address] [id number], * (ABNORMAL) POCT glucose (05/11/2019 6:24 AM BUTTON CUTTING MACHINE OPERATOR) GLUCOSE POC 139(H) 70 - 99 mg/dL 05/11/2019 6:40 AM BUTTON CUTTING MACHINE OPERATOR [facility] LAB ORDERS INTERFACE 05/11/2019 6:24 AM BUTTON CUTTING MACHINE OPERATOR us Loraine Penaloza MD POCT ORDERABLES - GILMA CE Final Result Performing Organization Address [facility] Co de Phone Number [facility] ORDERS INTERFACE US * (ABNORMAL) POCT glucose (05/10/2019 8:46 PM BUTTON CUTTING MACHINE OPERATOR) GLUCOSE POC 269(H) 70 - 99 mg/dL 05/10/2019 9:16 PM BUTTON CUTTING MACHINE OPERATOR [facility] LAB ORDERS INTERFACE 05/10/2019 8:46 PM BUTTON CUTTING MACHINE OPERATOR us Loraine Penaloza MD POCT ORDERABLES - GILMA CE Final Result Performing Organization Address [facility]/ZIP Co de Phone Number [facility] LAB ORDERS INTERFACE US * (ABNORMAL) POCT glucose (05/10/2019 5:08 PM BUTTON CUTTING MACHINE OPERATOR) GLUCOSE POC 215(H) 70 - 99 mg/dL 05/10/2019 5:27 PM BUTTON CUTTING MACHINE OPERATOR [facility] LAB ORDERS INTERFACE 05/10/2019 5:08 PM BUTTON CUTTING MACHINE OPERATOR us Loraine Penaloza MD POCT ORDERABLES - GILMA CE Final Result Performing Organization Address [facility] de Phone Number [facility] LAB ORDERS INTERFACE US * (ABNORMAL) POCT glucose (05/10/2019 11:38 AM BUTTON CUTTING MACHINE OPERATOR) GLUCOSE POC 250(H) 70 - 99 mg/dL 05/10/2019 11:58 AM BUTTON CUTTING MACHINE OPERATOR [facility] LAB ORDERS INTERFACE 05/10/2019 11:3 8 AM BUTTON CUTTING MACHINE OPERATOR us Loraine Penaloza MD POCT ORDERABLES - GILMA CE Final Result Performing Organization Address [facility] de Phone Number [facility] LAB ORDERS INTERFACE US * (ABNORMAL) POCT glucose (05/10/2019 6:18 AM BUTTON CUTTING MACHINE OPERATOR) GLUCOSE POC 188(H) 70 - 99 mg/dL 05/10/2019 12:19 PM BUTTON CUTTING MACHINE OPERATOR [facility] LAB ORDERS INTERFACE 05/10/2019 6:18 AM BUTTON CUTTING MACHINE OPERATOR us Loraine Penaloza MD POCT ORDERABLES - GILMA CE Final Result Performing Organization Address [facility] de Phone Number [facility] LAB ORDERS INTERFACE US * (ABNORMAL) CBC W/DIFF AUTOMATED (05/10/2019 5:38 AM BUTTON CUTTING MACHINE OPERATOR) WBC 8.0 4.5 - 11.0 x10'3/uL 05/10/2019 7:14 AM BUTTON CUTTING MACHINE OPERATOR [facility] RBC 2.64(L) 4.20 - 5.40 x10'6/uL 05/10/2019 7:14 AM BUTTON CUTTING MACHINE OPERATOR [facility] HGB 7.8(L) 12.0 - 16.0 G/DL 05/10/2019 7:14 [facility] HCT 23.9(L) 38.0 - 48.0 % 05/10/2019 7:14 AM [facility] MCV 90.5 81.0 - 99.0 FL 05/10/2019 7:14 AM [facility] MCH 29.5 27.0 - 31.0 PG 05/10/2019 7:14 AM [facility] MCHC 32.6 32.0 - 36.0 G/DL 05/10/2019 7:14 AM [facility] RDW 14.0 11.5 - 14.5 % 05/10/2019 7:14 AM [facility] PLT 267 130 - 400 x10'3/uL 05/10/2019 7:14 AM [facility] MPV 9.9 9.3 - 12.2 FL 05/10/2019 7:14 AM [facility] DIFFERENTIAL TYPE AUTOMATED DIFFERENTIAL 05/10/2019 7:14 AM [facility] NEUTROPHILS % 75.0 % 05/10/2019 7:14 AM [facility] LYMPHOCYTES % 14.3 % 05/10/2019 7:14 AM [facility] MONOCYTES % 6.7 % 05/10/2019 7:14 AM [facility] EOSINOPHILS 1.6 % 05/10/2019 7:14 AM [facility] BASOPHILS 0.5 % 05/10/2019 7:14 AM [facility] IMMATURE GRANS % 1.9 % 05/10/19 20 7:14 AM [facility] ABS. NEUTROPHILS TOTAL 6.02 1.80 - 7.70 x10'3/uL 05/10/2019 7:14 AM BUTTON CUTTING MACHINE OPERATOR [facility] ABS. LYMPHOCYTES 1.15 1.00 - 4.80 x10'3/uL 05/10/2019 7:14 AM BUTTON CUTTING MACHINE OPERATOR [facility] ABS. MONOCYTES 0.54 0.24 - 0.86 x10'3/uL 05/10/2019 7:14 AM [facility] ABS. EOSINOPHILS 0.13 0.04 - 0.36 x10'3/uL 05/10/2019 7:14 AM [facility] ABS. BASOPHILS 0.04 0.01 - 0.08 x10'3/uL 05/10/2019 7:14 AM [facility] ABS. IMMATURE GRANULOCYTES 0.15 0.00 - 0.49 x10'3/uL 05/10/2019 7:14 AM [facility] 05/10/2019 5:38 AM BUTTON CUTTING MACHINE OPERATOR Loraine Penaloza MD LABORATORY Final Result [facility] [address] [place] [address], * (ABNORMAL) BASIC METABOLIC PANEL (05/10/2019 5:38 AM BUTTON CUTTING MACHINE OPERATOR) GLUCOSE 174(H) 70 - 99 MG/DL 05/10/2019 7:25 AM [facility] BUN 20(H) 7 - 18 MG/DL 05/10/2019 7:25 AM [facility] CREATININE S/P/B 0.75 0.55 - 1.02 MG/DL 05/10/2019 7:25 AM [facility] SODIUM S/P/B 137 136 - 145 MMOL/L 05/10/2019 7:25 AM [facility] POTASSIUM S/P/B 3.7 3.5 - 5.1 MMOL/L 05/10/2019 7:25 AM [facility] CHLORIDE S/P/B 103 100 - 108 MMOL/L 05/10/2019 7:25 AM [facility] CO2 27.9 21 - 32 MMOL/L 05/10/2019 7:25 AM [facility] CALCIUM S/P/B 8.1(L) 8.5 - 10.1 MG/DL 05/10/2019 7:25 AM [facility] ANION GAP 6.1 5 - 15 MMOL/L 05/10/2019 7:25 AM [facility] BUN CREATININE RATIO 26.6(H) 6 - 26 05/10/2019 7:25 AM [facility] EGFR NON-AFR. AMER. 84(L) >90 ML/MIN/1.7 3 M2 05/10/2019 7:25 AM [facility] EGFR AFR. AMER. >90 >90 ML/MIN/1.7 3 M2 05/10/2019 7:25 AM [facility] Comment: NOTE: eGFR is not calculated for patients <18 years of age. This is an estimated GFR (CKD EPI) and should not be used for calculating drug doses. 05/10/2019 5:38 AM [facility] Loraine Penaloza MD LABORATORY Final Result [facility] [address] [place] [address], [place] [phone] * (ABNORMAL) POCT glucose (05/09/2019 8:00 PM BUTTON CUTTING MACHINE OPERATOR) GLUCOSE POC 270(H) 70 - 99 mg/dL 05/10/2019 3:02 AM [facility] LAB ORDERS INTERFACE 05/09/2019 8:00 PM BUTTON CUTTING MACHINE OPERATOR us Loraine Penaloza MD POCT ORDERABLES - GILMA CE Final Result Performing Organization Address City/[facility] Co de Phone Number [facility] LAB ORDERS INTERFACE US * (ABNORMAL) POCT glucose (05/09/2019 5:03 PM BUTTON CUTTING MACHINE OPERATOR) GLUCOSE POC 191(H) 70 - 99 mg/dL 05/09/2019 5:14 PM BUTTON CUTTING MACHINE OPERATOR [facility] LAB ORDERS INTERFACE 05/09/2019 5:03 PM BUTTON CUTTING MACHINE OPERATOR us Loraine Penaloza MD POCT ORDERABLES - GILMA CE Final Result Performing Organization Address [facility] Co de Phone Number [facility] LAB ORDERS INTERFACE US * IR MIDLINE PLACEMENT GREATER 3YR (05/09/2019 3:16 PM BUTTON CUTTING MACHINE OPERATOR) Anatomical Region Laterality Modality Chest Interventional R adiology 05/09/2019 3:53 PM BUTTON CUTTING MACHINE OPERATOR Impressions 05/09/2019 4:02 PM BUTTON CUTTING MACHINE OPERATOR IMPRESSION: 1. Technically successful, right mid arm brachial 4 [place]uran 20 cm midline catheter placement. Narrative 05/09/2019 4:02 PM BUTTON CUTTING MACHINE OPERATOR EXAMINATION: Ultrasound fluoroscopy guided peripherally inserted midline [...] Wire and dilator removed and a 4 [place]uran 20 cm single midline was advanced to [...] Wire and dilator removed and a 4 [place] 20 cm single midline wasadvanced to the level of the axillary vein. Position was confirmedfluoroscopically. Catheter was secured to the skin with adhesive dressing. Patienttolerated the procedure well. There were no immediate complications. Fluoroscopy time: 2 seconds Number of images: 2 saved IMPRESSION: 1. Technically successful, right mid arm brachial 4 [place] 20 cm midline catheter placement. Loranie Penaloza MD INTERVENTIONAL RADIOLO GY Final Result * (ABNORMAL) POCT glucose (05/09/2019 11:22 AM BUTTON CUTTING MACHINE OPERATOR) GLUCOSE POC 282(H) 70 - 99 mg/dL 05/09/2019 11:58 AM BUTTON CUTTING MACHINE OPERATOR [facility] LAB ORDERS INTERFACE 05/09/2019 11:2 2 AM BUTTON CUTTING MACHINE OPERATOR Loraine Penaloza MD POCT ORDERABLES - GILMA CE Final Result [facility] LAB ORDERS INTERFACE US * (ABNORMAL) CBC W/DIFF AUTOMATED (05/09/2019 7:38 AM BUTTON CUTTING MACHINE OPERATOR) WBC 7.0 4.5 - 11.0 x10'3/uL 05/09/2019 7:48 AM [facility] RBC 3.06(L) 4.20 - 5.40 x10'6/uL 05/09/2019 7:48 AM [facility] HGB 8.9(L) 12.0 - 16.0 G/DL 05/09/2019 7:48 AM [facility] HCT 27.4(L) 38.0 - 48.0 % 05/09/2019 7:48 AM [facility] MCV 89.5 80.0 - 94.0 FL 05/09/2019 7:48 AM [facility] MCH 29.1 27.0 - 31.0 PG 05/09/2019 7:48 AM [facility] MCHC 32.5 32.0 - 36.0 G/DL 05/09/2019 7:48 AM [facility] RDW 13.9 11.5 - 14.5 % 05/09/2019 7:48 AM [facility] PLT 271 130 - 400 x10'3/uL 05/09/2019 7:48 AM [facility] MPV 9.7 9.3 - 12.2 FL 05/09/2019 7:48 AM [facility] DIFFERENTIAL TYPE AUTOMATED DIFFERENTIAL 05/09/2019 7:48 AM [facility] NEUTROPHILS % 79.7 % 05/09/2019 7:48 AM [facility] LYMPHOCYTES % 10.4 % 05/09/2019 7:48 AM BUTTON CUTTING MACHINE OPERATOR [facility] MONOCYTES % 6.6 % 05/09/2019 7:48 AM BUTTON CUTTING MACHINE OPERATOR [facility] EOSINOPHILS 1.4 % 05/09/2019 7:48 AM [facility] BASOPHILS 0.6 % 05/09/2019 7:48 AM [facility] IMMATURE GRANS % 1.3 % 05/09/19 7:48 AM [facility] ABS. NEUTROPHILS TOTAL 5.54 1.80 - 7.70 x10'3/uL 05/09/2019 7:48 AM [facility] ABS. LYMPHOCYTES 0.72(L) 1.00 - 4.80 x10'3/uL 05/09/2019 7:48 AM [facility] ABS. MONOCYTES 0.46 0.24 - 0.86 x10'3/uL 05/09/2019 7:48 AM [facility] ABS. EOSINOPHILS 0.10 0.04 - 0.36 x10'3/uL 05/09/2019 7:48 AM [facility] ABS. BASOPHILS 0.04 0.01 - 0.08 x10'3/uL 05/09/2019 7:48 AM [facility] ABS. IMMATURE GRANULOCYTES 0.09 0.00 - 0.49 x10'3/uL 05/09/2019 7:48 AM [facility] 05/09/2019 7:38 AM BUTTON CUTTING MACHINE OPERATOR us Loraine Penaloza MD LABORATORY Final Result [facility] [address] [place] [address], [place] [phone] * (ABNORMAL) BASIC METABOLIC PANEL (05/09/2019 7:38 AM BUTTON CUTTING MACHINE OPERATOR) GLUCOSE 261(H) 70 - 99 MG/DL 05/09/2019 11:08 AM [facility] BUN 16 7 - 18 MG/DL 05/09/2019 11:08 AM [facility] CREATININE S/P/B 0.80 0.55 - 1.02 MG/DL 05/09/2019 11:08 AM [facility] SODIUM S/P/B 137 136 - 145 MMOL/L 05/09/2019 11:08 AM [facility] POTASSIUM S/P/B 3.3(L) 3.5 - 5.1 MMOL/L 05/09/2019 11:08 AM [facility] CHLORIDE S/P/B 103 100 - 108 MMOL/L 05/09/2019 11:08 AM [facility] CO2 30.0 21 - 32 MMOL/L 05/09/2019 11:08 AM [facility] CALCIUM S/P/B 7.9(L) 8.5 - 10.1 MG/DL 05/09/2019 11:08 AM [facility] ANION GAP 4.0(L) 5 - 15 MMOL/L 05/09/2019 11:08 AM [facility] BUN CREATININE RATIO 20.1 6 - 26 05/09/2019 11:08 AM [facility] EGFR NON-AFR. AMER. 78(L) >90 ML/MIN/1.7 3 M2 05/09/2019 11:08 AM [facility] EGFR AFR. AMER. >90 >90 ML/MIN/1.7 3 M2 05/09/2019 11:08 AM [facility] Comment: NOTE: eGFR is not calculated for patients <18 years of age. This is an estimated GFR (CKD EPI) and should not be used for calculating drug doses. 05/09/2019 7:38 AM BUTTON CUTTING MACHINE OPERATOR us Loraine Penaloza MD LABORATORY Final Result [facility] [address] [place] [address], [place] [phone] * (ABNORMAL) POCT glucose (05/09/2019 4:53 AM BUTTON CUTTING MACHINE OPERATOR) GLUCOSE POC 255(H) 70 - 99 mg/dL 05/09/2019 6:34 AM BUTTON CUTTING MACHINE OPERATOR [facility] LAB ORDERS INTERFACE 05/09/2019 4:53 AM BUTTON CUTTING MACHINE OPERATOR us Loraine Penaloza MD POCT ORDERABLES - GILMA CE Final Result Performing Organization Address City/[facility]/ZIP Co de Phone Number [facility] LAB ORDERS INTERFACE US * (ABNORMAL) POCT glucose (05/08/2019 8:55 PM BUTTON CUTTING MACHINE OPERATOR) GLUCOSE POC 199(H) 70 - 99 mg/dL 05/08/2019 9:32 PM BUTTON CUTTING MACHINE OPERATOR [facility] LAB ORDERS INTERFACE 05/08/2019 8:55 PM BUTTON CUTTING MACHINE OPERATOR us Loraine Penaloza MD POCT ORDERABLES - GILMA CE Final Result Performing Organization Address City/[facility]/ZIP Co de Phone Number [facility] LAB ORDERS INTERFACE US * (ABNORMAL) POCT glucose (05/08/2019 4:08 PM BUTTON CUTTING MACHINE OPERATOR) GLUCOSE POC 108(H) 70 - 99 mg/dL 05/08/2019 4:13 PM BUTTON CUTTING MACHINE OPERATOR [facility] LAB ORDERS INTERFACE 05/08/2019 4:08 PM BUTTON CUTTING MACHINE OPERATOR us Loraine Penaloza MD POCT ORDERABLES - GILMA CE Final Result Performing Organization Address City/[facility]/ZIP Co de Phone Number [facility] LAB ORDERS INTERFACE US * (ABNORMAL) POCT glucose (05/08/2019 11:40 AM BUTTON CUTTING MACHINE OPERATOR) GLUCOSE POC 126(H) 70 - 99 mg/dL 05/08/2019 11:45 AM BUTTON CUTTING MACHINE OPERATOR [facility] LAB ORDERS INTERFACE 05/08/2019 11:4 0 AM BUTTON CUTTING MACHINE OPERATOR us Loraine Penaloza MD POCT ORDERABLES - GILMA CE Final Result [facility] LAB ORDERS INTERFACE US * USV ART REST W REBECCA LOW EXT (05/08/2019 11:02 AM BUTTON CUTTING MACHINE OPERATOR) Anatomical Region Laterality Modality Extremity Vascular Ultraso und 05/08/2019 10:4 8 AM BUTTON CUTTING MACHINE OPERATOR Narrative 05/11/2019 1:33 PM BUTTON CUTTING MACHINE OPERATOR ?ARTERIAL DOPPLER - REBECCA ?BILATERAL LOWER EXTREMITY ? VASCULAR LAB Pat.Name: ??IRIS GIL ? Pat.ID: ?[id number] ? St.Date: ?? 05/08/2019 ? Refer.: ??Rick [...] A PSV ??81.4 cm/s ? Left Dist CONSULTING NETWORKING ENGINEER ?? Dist CONSULTING NETWORKING ENGINEER PSV ?76.3 cm/s ? Left Dist MAKAYLA ?? Dist MAKAYLA PSV ?53.1 cm/s ? Right SENIOR RESEARCH PROJECT MANAGER ?? SENIOR RESEARCH PROJECT MANAGER PSV ?108 cm/s ? Right Dist Pop A ?? Dist Pop A PSV ??57.4 cm/s ? Right Dist CONSULTING NETWORKING ENGINEER ?? Dist CONSULTING NETWORKING ENGINEER PSV ?85.7 cm/s ? Right Dist MAKAYLA [...] EXTREMITY VASCULAR LAB Pat.Name: IRIS GIL Pat.ID: [id number] .Date: 05/08/2019 Refer.MD: Rick Glez Exam Time: 10:48:00 AM Study Type:FRANCISCO VS Arterial Doppler Legs BRENDON Age: 11 1955,64Y Sex: FEMALE Sonogrphr: THAI Benjamin Pat. Stat.:Inpatient Room: [facility] History / Clinical: LLE non healing [...] Pop A PSV 81.4 cm/s Left Dist CONSULTING NETWORKING ENGINEER Dist CONSULTING NETWORKING ENGINEER PSV 76.3 cm/s Left Dist MAKAYLA Dist MAKAYLA PSV 53.1 cm/s Right SENIOR RESEARCH PROJECT MANAGER SENIOR RESEARCH PROJECT MANAGER PSV 108 cm/s Right Dist Pop A Dist Pop A PSV 57.4 cm/s Right Dist CONSULTING NETWORKING ENGINEER Dist CONSULTING NETWORKING ENGINEER PSV 85.7 cm/s Right Dist MAKAYLA [...] * (ABNORMAL) POCT glucose (05/08/2019 6:20 AM BUTTON CUTTING MACHINE OPERATOR) [facility] GLUCOSE POC 147(H) 70 - 99 mg/dL 05/08/2019 6:55 AM BUTTON CUTTING MACHINE OPERATOR [facility] LAB ORDERS INTERFACE 05/08/2019 6:20 AM BUTTON CUTTING MACHINE OPERATOR Loraine Penaloza MD POCT ORDERABLES - GILMA CE Final Result Performing Organization Address [facility] Co de Phone Number [facility] LAB ORDERS INTERFACE US * (ABNORMAL) HEMOGLOBIN, GLYCOSYLATED (05/08/2019 6:16 AM BUTTON CUTTING MACHINE OPERATOR) HGB A1C 11.4(H) 4.2 - 6.3 % 05/08/2019 12:19 PM BUTTON CUTTING MACHINE OPERATOR [facility] Comment: ADA GUIDELINES 2010 5.7 TO 6.4% INCREASED RISK OF DIABETES > OR = 6.5% CONSISTENT WITH DIABETES ESTIMATED AVG GLUCOSE 280 mg/dL 05/08/2019 12:19 PM BUTTON CUTTING MACHINE OPERATOR [facility] 05/08/2019 6:16 AM BUTTON CUTTING MACHINE OPERATOR us Loraine Penaloza MD LABORATORY Final Result Performing Organization Address [facility] Co de Phone Number [facility] [address] [address], [place] [phone] * (ABNORMAL) IRON SAT PANEL (IRON,IBC,%SAT) (05/08/2019 6:16 AM BUTTON CUTTING MACHINE OPERATOR) IRON 43(L) 50.0 - 170.0 MCG/DL 05/08/2019 11:00 AM BUTTON CUTTING MACHINE OPERATOR [facility] IRON BINDING CAPACITY 170(L) 250 - 450 MCG/DL 05/08/2019 11:00 AM BUTTON CUTTING MACHINE OPERATOR [facility] IRON SATURATION 25 20 - 55 % 0 11:00 AM [facility] 05/08/2019 6:16 AM BUTTON CUTTING MACHINE OPERATOR Loraine Penaloza MD LABORATORY Final Result [facility] [address] [place] [address], * VITAMIN B-12 (05/08/2019 6:16 AM BUTTON CUTTING MACHINE OPERATOR) VITAMIN B12 S/P/B 1,199 254 - 1,320 PG/ML 05/08/2019 11:13 AM BUTTON CUTTING MACHINE OPERATOR [facility] 05/08/2019 6:16 AM BUTTON CUTTING MACHINE OPERATOR Loraine Penaloza MD LABORATORY Final Result Performing Organization Address City/[facility]/ZIP Co de Phone Number [facility] [address] [place] [phone], * FOLIC ACID SERUM (05/08/2019 6:16 AM BUTTON CUTTING MACHINE OPERATOR) FOLATE 4.3 3.1 - 17.5 NG/ML 05/08/2019 11:13 AM BUTTON CUTTING MACHINE OPERATOR [facility] 05/08/2019 6:16 AM BUTTON CUTTING MACHINE OPERATOR Loraine Penaloza MD LABORATORY Final Result Performing Organization Address City/[facility]/ZIP Co de Phone Number [facility] [address] [place] [phone], * (ABNORMAL) FERRITIN (05/08/2019 6:16 AM BUTTON CUTTING MACHINE OPERATOR) FERRITIN 634.4(H) 8.0 - 388.0 NG/ML 05/08/2019 11:13 AM BUTTON CUTTING MACHINE OPERATOR [facility] 05/08/2019 6:16 AM BUTTON CUTTING MACHINE OPERATOR us Loraine Penaloza MD LABORATORY Final Result [facility] [address] [place] [address], * (ABNORMAL) CBC W/DIFF AUTOMATED (05/08/2019 6:16 AM BUTTON CUTTING MACHINE OPERATOR) [facility] Signature WBC 5.1 4.5 - 11.0 x10'3/uL 05/08/2019 7:22 AM [facility] RBC 3.04(L) 4.20 - 5.40 x10'6/uL 05/08/2019 7:22 AM [facility] HGB 8.9(L) 12.0 - 16.0 G/DL 05/08/2019 7:22 AM [facility] HCT 27.4(L) 38.0 - 48.0 % 05/08/2019 7:22 [facility] MCV 90.1 80.0 - 94.0 FL 05/08/2019 7:22 [facility] MCH 29.3 27.0 - 31.0 PG 05/08/2019 7:22 [facility] MCHC 32.5 32.0 - 36.0 G/DL 05/08/2019 7:22 [facility] RDW 13.6 11.5 - 14.5 % 05/08/2019 7:22 [facility] PLT 283 130 - 400 x10'3/uL 05/08/2019 7:22 [facility] MPV 9.9 9.3 - 12.2 FL 05/08/2019 7:22 [facility] DIFFERENTIAL TYPE AUTOMATED DIFFERENTIAL 05/08/2019 7:22 [facility] NEUTROPHILS % 71.3 % 05/08/2019 7:22 [facility] LYMPHOCYTES % 16.2 % 05/08/2019 7:22 AM BUTTON CUTTING MACHINE OPERATOR [facility] MONOCYTES % 7.9 % 05/08/2019 7:22 [facility] EOSINOPHILS 3.0 % 05/08/2019 7:22 [facility] BASOPHILS 0.6 % 05/08/2019 7:22 [facility] IMMATURE GRANS % 1.0 % 05/08/19 7:22 [facility] ABS. NEUTROPHILS TOTAL 3.62 1.80 - 7.70 x10'3/uL 05/08/2019 7:22 [facility] ABS. LYMPHOCYTES 0.82(L) 1.00 - 4.80 x10'3/uL 05/08/2019 7:22 [facility] ABS. MONOCYTES 0.40 0.24 - 0.86 x10'3/uL 05/08/2019 7:22 [facility] ABS. EOSINOPHILS 0.15 0.04 - 0.36 x10'3/uL 05/08/2019 7:22 [facility] ABS. BASOPHILS 0.03 0.01 - 0.08 x10'3/uL 05/08/2019 7:22 [facility] ABS. IMMATURE GRANULOCYTES 0.05 0.00 - 0.49 x10'3/uL 05/08/2019 7:22 [facility] 05/08/2019 6:16 AM BUTTON CUTTING MACHINE OPERATOR us Loraine Penaloza MD LABORATORY Final Result [facility] [address] [place] [address], [place] [phone] * (ABNORMAL) BASIC METABOLIC PANEL (05/08/2019 6:16 AM [facility]) GLUCOSE 135(H) 70 - 99 MG/DL 05/08/2019 11:00 [facility] BUN 13 7 - 18 MG/DL 05/08/2019 11:00 [facility] CREATININE S/P/B 0.84 0.55 - 1.02 MG/DL 05/08/2019 11:00 [facility] SODIUM S/P/B 140 136 - 145 MMOL/L 05/08/2019 11:00 [facility] POTASSIUM S/P/B 3.0(LL) 3.5 - 5.1 MMOL/L 05/08/2019 11:00 [facility] Comment: ER CALLED CRITICAL RESULTS AT [id number] TO AND READ BACK BY CARINA PATEL CHLORIDE S/P/B 107 100 - 108 MMOL/L 05/08/2019 11:00 [facility] CO2 30.2 21 - 32 MMOL/L 05/08/2019 11:00 [facility] CALCIUM S/P/B 7.6(L) 8.5 - 10.1 MG/DL 05/08/2019 11:00 [facility] ANION GAP 2.8(L) 5 - 15 MMOL/L 05/08/2019 11:00 [facility] BUN CREATININE RATIO 15.6 6 - 26 05/08/2019 11:00 [facility] EGFR NON-AFR. AMER. 73(L) >90 ML/MIN/1.7 3 M2 05/08/2019 11:00 [facility] EGFR AFR. AMER. 85(L) >90 ML/MIN/1.7 3 M2 05/08/2019 11:00 [facility] Comment: NOTE: eGFR is not calculated for patients <18 years of age. This is an estimated GFR (CKD EPI) and should not be used for calculating drug doses. 05/08/2019 6:16 AM BUTTON CUTTING MACHINE OPERATOR us Loraine Penaloza MD LABORATORY Final Result [facility] [address] [place] [address], * CULTURE, WOUND, W/GRAM STAIN (05/08/2019 3:35 AM BUTTON CUTTING MACHINE OPERATOR) SPEC DESCRIPTION LEG,LEFT 05/08/2019 3:28 AM BUTTON CUTTING MACHINE OPERATOR [facility] SPECIAL REQUESTS NO SPECIAL REQUEST 05/08/2019 3:28 AM BUTTON CUTTING MACHINE OPERATOR [facility] GRAM STAIN RESULT NO WHITE BLOOD CELLS SEEN 05/08/2019 2:32 PM BUTTON CUTTING MACHINE OPERATOR [facility] GRAM STAIN RESULT RARE GRAM POSITIVE COCCI 05/08/2019 2:32 PM BUTTON CUTTING MACHINE OPERATOR [facility] GRAM STAIN RESULT RARE GRAM POSITIVE RODS 05/08/2019 2:32 [facility] GRAM STAIN RESULT RARE GRAM NEGATIVE RODS 05/08/2019 2:32 PM BUTTON CUTTING MACHINE OPERATOR [facility] CULTURE RESULT LIGHT GROWTH OF PSEUDOMONAS AERUGINOSA 05/12/2019 9:07 [facility] CULTURE RESULT LIGHT GROWTH OF NORMAL SKIN ALANA, SUSCEPTIBILITIES NOT ROUTINELY PERFORMED. 05/12/2019 9:07 AM BUTTON CUTTING MACHINE OPERATOR [facility] CULTURE RESULT LIGHT GROWTH OF PSEUDOMONAS STUTZERI 05/12/2019 9:07 [facility] CULTURE RESULT LIGHT GROWTH OF MORGANELLA MORGANII SSP. MORGANII 05/12/2019 9:07 [facility] CULTURE RESULT NOTE: WOUND AND TISSUE CULTURES ARE ROUTINELY SCREENED FOR AEROBIC ORGANISMS ONLY. 05/12/2019 9:07 AM BUTTON CUTTING MACHINE OPERATOR [facility] STRUCTURE OF LEFT LOWER LIMB / Unknown 05/08/2019 3:35 AM BUTTON CUTTING MACHINE OPERATOR 05/08/2019 3:44 AM BUTTON CUTTING MACHINE OPERATOR Narrative Organism Antibiotic Method Susceptibility Pseudomonas aeruginosa [...] MD MICROBIOLOGY - GENERAL ORDERABLES Final Result [facility] [address] [place] [address], [place] [phone] * MRSA SCREENING (05/08/2019 3:15 AM BUTTON CUTTING MACHINE OPERATOR) SPEC DESCRIPTION NASAL 05/08/2019 2:53 AM BUTTON CUTTING MACHINE OPERATOR [facility] SPECIAL REQUESTS NO SPECIAL REQUEST 05/08/2019 2:53 AM BUTTON CUTTING MACHINE OPERATOR [facility] CULTURE RESULT NO METHICILLIN RESISTANT STAPHYLOCOCCUS AUREUS ISOLATED 05/09/2019 6:53 AM BUTTON CUTTING MACHINE OPERATOR [facility] SPECIMEN FROM INTERNAL NOSE / Unknown 05/08/2019 3:15 AM BUTTON CUTTING MACHINE OPERATOR 05/08/2019 3:32 AM BUTTON CUTTING MACHINE OPERATOR Loraine Penaloza MD MICROBIOLOGY - GENERAL ORDERABLES Final Result [facility] [address] [place] [id number], [place] [phone] * (ABNORMAL) POCT glucose (05/07/2019 11:32 PM BUTTON CUTTING MACHINE OPERATOR) GLUCOSE POC 229(H) 70 - 99 mg/dL 05/07/2019 11:35 PM BUTTON CUTTING MACHINE OPERATOR [facility] ORDERS INTERFACE 05/07/2019 11:3 2 PM BUTTON CUTTING MACHINE OPERATOR Loraine Penaloza MD POCT ORDERABLES - GILMA CE Final Result [facility] ORDERS INTERFACE US * CULTURE URINE (05/07/2019 4:40 PM BUTTON CUTTING MACHINE OPERATOR) SPEC DESCRIPTION URINE STRAIGHT CATH 05/07/2019 5:30 PM BUTTON CUTTING MACHINE OPERATOR [facility] SPECIAL REQUESTS NO SPECIAL REQUEST 05/07/2019 5:30 PM BUTTON CUTTING MACHINE OPERATOR [facility] CULTURE RESULT NO GROWTH 2 DAYS 05/09/2019 8:37 AM BUTTON CUTTING MACHINE OPERATOR [facility] URINE SPECIMEN OBTAINED BY SINGLE CATHETERIZATION OF URINARY BLADDER / Unknown 05/07/2019 4:40 PM BUTTON CUTTING MACHINE OPERATOR 05/07/2019 5:45 PM BUTTON CUTTING MACHINE OPERATOR us Loraine Penaloza MD MICROBIOLOGY - GENERAL ORDERABLES Final Result [facility] [address] [place] [address], * (ABNORMAL) LACTIC ACID (05/07/2019 4:40 PM BUTTON CUTTING MACHINE OPERATOR) LACTIC ACID VENOUS 3.8(H) 0.4 - 2.0 MMOL/L 05/07/2019 5:56 PM BUTTON CUTTING MACHINE OPERATOR [facility] Comment: EAB CALLED CRITICAL RESULTS AT [id number] TO AND READ BACK BY STEPHANIE CORBETT 05/07/2019 4:40 PM BUTTON CUTTING MACHINE OPERATOR us Julian GONZALEZ LABORATORY Final Result Performing Organization Address [facility]/ZIP Co de Phone Number [facility] [address] [place] [address], [place] [phone] * (ABNORMAL) URINALYSIS WI REFLEX TO CULTURE (05/07/2019 4:40 PM BUTTON CUTTING MACHINE OPERATOR) [facility] SPECIMEN TYPE URINE STRAIGHT CATH 05/07/2019 4:26 PM BUTTON CUTTING MACHINE OPERATOR [facility] COLOR (U) DARK YELLOW 05/07/2019 5:16 PM BUTTON CUTTING MACHINE OPERATOR [facility] TRANSPARENCY TURBID 05/07/2019 5:16 PM BUTTON CUTTING MACHINE OPERATOR [facility] SPECIFIC GRAVITY (U) 1.015 1.001 - 1.030 05/07/2019 5:16 PM BUTTON CUTTING MACHINE OPERATOR [facility] U PH 6.0 5.0 - 9.0 05/07/2019 5:16 PM BUTTON CUTTING MACHINE OPERATOR [facility] LEUKOCYTES (U) LARGE(A) NEGATIVE 05/07/2019 5:16 PM BUTTON CUTTING MACHINE OPERATOR [facility] NITRITES NEGATIVE NEGATIVE 05/07/2019 5:16 PM BUTTON CUTTING MACHINE OPERATOR [facility] PROTEIN (U) 100(H) <30 MG/DL 05/07/2019 5:16 [facility] URINE GLUCOSE >500(A) NEGATIVE MG/DL 05/07/2019 5:16 [facility] KETONES MG/DL (U) NEGATIVE NEGATIVE MG/DL 05/07/2019 5:16 [facility] UROBILINOGEN NEGATIVE NEGATIVE MG/DL 05/07/2019 5:16 [facility] BILIRUBIN (U) NEGATIVE NEGATIVE MG/DL 05/07/2019 5:16 [facility] BLOOD (U) LARGE(A) NEGATIVE 05/07/2019 5:16 [facility] CULTURE & SENSITIVITY INDICATED? SPECIMEN SETUP FOR CULTURE 05/07/2019 5:16 [facility] WBC/HPF >100(H) <6 /HPF 05/07/2019 5:16 [facility] WBC CLUMPS PRESENT 05/07/2019 5:16 [facility] RBC/HPF >100(H) <6 /HPF 05/07/2019 5:16 [facility] BUDDING YEAST MANY(A) NONE /HPF 05/07/2019 5:16 [facility] URINE, STRAIGHT CATH 05/07/2019 4:40 PM BUTTON CUTTING MACHINE OPERATOR us Julian GONZALEZ URINE ORDERABLES Final Result [facility] [address] [place] [address], [place] [phone] * (ABNORMAL) LACTIC ACID (05/07/2019 2:17 PM BUTTON CUTTING MACHINE OPERATOR) LACTIC ACID VENOUS 3.2(H) 0.4 - 2.0 MMOL/L 05/07/2019 4:06 PM BUTTON CUTTING MACHINE OPERATOR [facility] Comment: AGATHA CALLED CRITICAL RESULTS AT [id number] TO AND READ BACK BY STEPHANIE CORBETT 05/07/2019 2:17 PM BUTTON CUTTING MACHINE OPERATOR Julian GONZALEZ LABORATORY Final Result [facility] [address] [place] [address], * POCT KETONES (05/07/2019 12:59 PM BUTTON CUTTING MACHINE OPERATOR) KETONES S/P/B 0.1 0.0 - 0.5 mmol/L 05/07/2019 1:01 PM BUTTON CUTTING MACHINE OPERATOR [facility] ORDERS INTERFACE 05/07/2019 12:5 9 PM BUTTON CUTTING MACHINE OPERATOR Don Branham MD POINT OF CARE TEST ORDERABLES Final Result Performing Organization Address City/[facility]/ZIP Co de Phone Number [facility] ORDERS INTERFACE US * (ABNORMAL) LACTIC ACID (05/07/2019 12:32 PM BUTTON CUTTING MACHINE OPERATOR) LACTIC ACID VENOUS 3.9(H) 0.4 - 2.0 MMOL/L 05/07/2019 1:52 PM BUTTON CUTTING MACHINE OPERATOR [facility] 05/07/2019 12:3 2 PM BUTTON CUTTING MACHINE OPERATOR Julian GONZALEZ LABORATORY Final Result Performing Organization Address City/[facility]/ZIP Co de Phone Number [facility] [address] [place] [address], [place] [phone] * MAGNESIUM (05/07/2019 12:32 PM BUTTON CUTTING MACHINE OPERATOR) MAGNESIUM 1.8 1.8 - 2.4 MG/DL 05/07/2019 1:32 [facility] 05/07/2019 12:3 2 PM BUTTON CUTTING MACHINE OPERATOR Julian GONZALEZ LABORATORY Final Result [facility] [address] [place] [address], * (ABNORMAL) COMPREHENSIVE METABOLIC PANEL (05/07/2019 12:32 PM BUTTON CUTTING MACHINE OPERATOR) GLUCOSE 353(H) 70 - 99 MG/DL 05/07/2019 1:32 [facility] BUN 13 7 - 18 MG/DL 05/07/2019 1:32 [facility] CREATININE S/P/B 1.09(H) 0.55 - 1.02 MG/DL 05/07/2019 1:32 [facility] SODIUM S/P/B 135(L) 136 - 145 MMOL/L 05/07/2019 1:32 [facility] POTASSIUM S/P/B 3.0(LL) 3.5 - 5.1 MMOL/L 05/07/2019 1:32 [facility] Comment:AGATHA CALLED CRITICAL RESULTS AT [id number] TO AND READ BACK BY BASIA Davis CHLORIDE S/P/B 98(L) 100 - 108 MMOL/L 05/07/2019 1:32 [facility] CO2 29.7 21 - 32 MMOL/L 05/07/2019 1:32 [facility] CALCIUM S/P/B 8.5 8.5 - 10.1 MG/DL 05/07/2019 1:32 [facility] BILIRUBIN TOTAL S/P/B 0.8 0.2 - 1.2 MG/DL 05/07/2019 1:32 [facility] TOTAL PROTEIN S/P/B 7.8 6.4 - 8.2 G/DL 05/07/2019 1:32 [facility] ALBUMIN S/P/B 3.1(L) 3.4 - 5.0 G/DL 05/07/2019 1:32 [facility] AST 32 15 - 37 U/L 05/07/2019 1:32 [facility] ALT 28 14 - 55 U/L 05/07/2019 1:32 [facility] ALKALINE PHOSPHATASE S/P/B 58 50 - 136 U/L 05/07/2019 1:32 [facility] ANION GAP 7.3 5 - 15 MMOL/L 05/07/2019 1:32 [facility] BUN CREATININE RATIO 11.9 6 - 26 05/07/2019 1:32 [facility] A/G RATIO 0.7(L) 1.0 - 2.0 RATIO 05/07/2019 1:32 [facility] EGFR NON-AFR. AMER. 54(L) >90 ML/MIN/1.7 3 M2 05/07/2019 1:32 [facility] EGFR AFR. AMER. 62(L) >90 ML/MIN/1.7 3 M2 05/07/2019 1:32 [facility] Comment: NOTE: eGFR is not calculated for patients <18 years of age. This is an estimated GFR (CKD EPI) and should not be used for calculating drug doses. 05/07/2019 12:3 2 PM BUTTON CUTTING MACHINE OPERATOR us Julian GONZALEZ LABORATORY Final Result [facility] [address] [place] [address], [place] [phone] * (ABNORMAL) CBC W/DIFF AUTOMATED (05/07/2019 12:32 PM BUTTON CUTTING MACHINE OPERATOR) [facility] Signature WBC 6.8 4.5 - 11.0 x10'3/uL 05/07/2019 12:49 [facility] RBC 3.38(L) 4.20 - 5.40 x10'6/uL 05/07/2019 12:49 [facility] HGB 9.9(L) 12.0 - 16.0 G/DL 05/07/2019 12:49 [facility] HCT 30.4(L) 38.0 - 48.0 % 05/07/2019 12:49 [facility] MCV 89.9 81.0 - 99.0 FL 05/07/2019 12:49 [facility] MCH 29.3 27.0 - 31.0 PG 05/07/2019 12:49 [facility] MCHC 32.6 32.0 - 36.0 G/DL 05/07/2019 12:49 [facility] RDW 13.6 11.5 - 14.5 % 05/07/2019 12:49 [facility] PLT 314 130 - 400 x10'3/uL 05/07/2019 12:49 [facility] MPV 9.8 9.3 - 12.2 FL 05/07/2019 12:49 [facility] DIFFERENTIAL TYPE AUTOMATED DIFFERENTIAL 05/07/2019 12:49 [facility] NEUTROPHILS % 74.0 % 05/07/2019 12:49 [facility] LYMPHOCYTES % 14.8 % 05/07/2019 12:49 PM BUTTON CUTTING MACHINE OPERATOR [facility] MONOCYTES % 6.9 % 05/07/2019 12:49 PM BUTTON CUTTING MACHINE OPERATOR [facility] EOSINOPHILS 1.9 % 05/07/2019 12:49 [facility] BASOPHILS 0.6 % 05/07/2019 12:49 PM BUTTON CUTTING MACHINE OPERATOR [facility] IMMATURE GRANS % 1.8 % 05/07/19 12:49 PM BUTTON CUTTING MACHINE OPERATOR [facility] ABS. NEUTROPHILS TOTAL 5.07 1.80 - 7.70 x10'3/uL 05/07/2019 12:49 PM BUTTON CUTTING MACHINE OPERATOR [facility] ABS. LYMPHOCYTES 1.01 1.00 - 4.80 x10'3/uL 05/07/2019 12:49 PM BUTTON CUTTING MACHINE OPERATOR [facility] ABS. MONOCYTES 0.47 0.24 - 0.86 x10'3/uL 05/07/2019 12:49 PM BUTTON CUTTING MACHINE OPERATOR [facility] ABS. EOSINOPHILS 0.13 0.04 - 0.36 x10'3/uL 05/07/2019 12:49 PM BUTTON CUTTING MACHINE OPERATOR [facility] ABS. BASOPHILS 0.04 0.01 - 0.08 x10'3/uL 05/07/2019 12:49 [facility] ABS. IMMATURE GRANULOCYTES 0.12 0.00 - 0.49 x10'3/uL 05/07/2019 12:49 [facility] 05/07/2019 12:3 2 PM BUTTON CUTTING MACHINE OPERATOR us Julian GONZALEZ LABORATORY Final Result [facility] [address] [place] [address], * CULTURE, BACTERIA, BLOOD (05/07/2019 12:31 PM BUTTON CUTTING MACHINE OPERATOR) SPEC DESCRIPTION BLOOD 05/07/2019 12:29 PM BUTTON CUTTING MACHINE OPERATOR [facility] SPECIAL REQUESTS NO SPECIAL REQUEST 05/07/2019 12:29 PM BUTTON CUTTING MACHINE OPERATOR [facility] CULTURE RESULT NO GROWTH 5 DAYS 05/12/2019 10:36 AM BUTTON CUTTING MACHINE OPERATOR [facility] BLOOD SPECIMEN OBTAINED FOR BLOOD CULTURE / Unknown 05/07/2019 12:31 PM BUTTON CUTTING MACHINE OPERATOR 05/07/2019 12:32 PM BUTTON CUTTING MACHINE OPERATOR Julian GONZALEZ MICROBIOLOGY - GENERAL ORDERA BLES Final Result [facility] [address] [place] [address], [place] [phone] * CULTURE, BACTERIA, BLOOD (05/07/2019 12:17 PM BUTTON CUTTING MACHINE OPERATOR) Pathologist [facility] SPEC DESCRIPTION BLOOD 05/07/2019 12:29 PM BUTTON CUTTING MACHINE OPERATOR [facility] SPECIAL REQUESTS NO SPECIAL REQUEST 05/07/2019 12:29 PM BUTTON CUTTING MACHINE OPERATOR [facility] CULTURE RESULT NO GROWTH 5 DAYS 05/12/2019 10:36 [facility] BLOOD SPECIMEN OBTAINED FOR BLOOD CULTURE / Unknown 05/07/2019 12:17 PM BUTTON CUTTING MACHINE OPERATOR 05/07/2019 3:54 PM BUTTON CUTTING MACHINE OPERATOR Julian GONZALEZ MICROBIOLOGY - GENERAL ORDERA BLES Final Result [facility] [address] [place] [address], [place] [phone] * (ABNORMAL) POCT glucose (05/07/2019 11:50 AM BUTTON CUTTING MACHINE OPERATOR) GLUCOSE POC 326(H) 70 - 99 mg/dL 05/07/2019 11:56 AM [facility] ORDERS INTERFACE 05/07/2019 11:5 0 AM BUTTON CUTTING MACHINE OPERATOR us Attending Physician Emergency MD POCT ORDERABLES - DEVICE Final Result [facility] ORDERS INTERFACE documented in this encounter Visit Diagnoses Diagnosis Sepsis ([facility])- Primary Weakness Other malaise and fatigue Hyperglycemia Other abnormal glucose Noncompliance Personal history of noncompliance with medical treatment, presenting hazards to health Decubitus skin ulcer Pressure ulcer, unspecified site Ulcer of lower limb, left, limited to breakdown of skin ([facility]) documented in this encounter Administered Medications Inactive Administered Medications - up to 3 most recent administrations Medication Order MAR Action Action Date Dose Rate Site acetaminophen (TYLENOL) tablet 650 mg 650 mg, Oral, Every 4 hours PRN, Fever, Discomfort, Starting on Mon05/07/19 at 1723, Until Mon05/17/19 at 1505, For temperature greater than 38.6 C (101.5 F) Given 05/16/2019 4:06 PM BUTTON CUTTING MACHINE OPERATOR 650 mg Given 05/15/2019 12:16 PM BUTTON CUTTING MACHINE OPERATOR 650 mg Given 05/14/2019 4:30 PM BUTTON CUTTING MACHINE OPERATOR 650 mg atorvastatin (LIPITOR) tablet 80 mg 80 mg, Oral, Daily, First dose on Mon05/08/19 at 0900, Until DiscontinuedIndications:Hypercholesterolemia Given 05/17/2019 10:0 5 AM BUTTON CUTTING MACHINE OPERATOR 80 mg Given 05/16/2019 8:53 AM BUTTON CUTTING MACHINE OPERATOR 80 mg Given 05/15/2019 9:51 AM BUTTON CUTTING MACHINE OPERATOR 80 mg cefTAZidime (FORTAZ) 2 g in sodium chloride 0.9 % 50 mL IVPB 2 g, Intravenous, at 100 mL/hr, Q8H, First dose (after last reorder) on 05/11/19 at 0000, Until Discontinued New Bag 05/13/2019 8:20 AM BUTTON CUTTING MACHINE OPERATOR 2 g 100 mL/hr New Bag 05/13/2019 12:10 AM BUTTON CUTTING MACHINE OPERATOR 2 g 100 mL/hr New Bag 05/12/2019 5:46 PM BUTTON CUTTING MACHINE OPERATOR 2 g 100 mL/hr cefTRIAXone (ROCEPHIN) 2 g in sodium chloride 0.9 % 50 mL IVPB 2 g, Intravenous, at 100 mL/hr, Every 24 hours, First dose on Mon05/07/19 at 1730, Until Discontinued New Bag 05/10/2019 4:35 PM BUTTON CUTTING MACHINE OPERATOR 2 g 100 mL /hr New 05/09/2019 6:07 PM BUTTON CUTTING MACHINE OPERATOR 2 g 100 mL/hr 05/08/2019 5:29 PM BUTTON CUTTING MACHINE OPERATOR 2 g 100 mL/hr chlorthalidone (HYGROTEN) tablet 25 mg 25 mg, Oral, Daily, First dose on Mon05/13/19 at 1200, Until Discontinued Given 05/17/2019 10:04 AM BUTTON CUTTING MACHINE OPERATOR 25 mg Given 05/16/2019 8:53 AM BUTTON CUTTING MACHINE OPERATOR 25 mg Given 05/15/2019 9:51 AM BUTTON CUTTING MACHINE OPERATOR 25 mg collagenase (SANTYL) ointment Topical, Daily, First dose on Mon05/08/19 at 1615, Until Discontinued, Cleanse wound with saline and pat dry. Apply nickel-depth layer of santyl to wound bed, cover with dry foam. Change daily and/or as needed for loosened/soiled bandage. Given 05/17/2019 10:12 AM BUTTON CUTTING MACHINE OPERATOR Given 05/16/2019 11:45 AM BUTTON CUTTING MACHINE OPERATOR Given 05/15/2019 12:25 PM BUTTON CUTTING MACHINE OPERATOR doxycycline hyclate (VIBRAMYCIN) 100 mg in sodium chloride 0.9 % 100 mL IVPB 100 mg, Intravenous, at 100 mL/hr, Every 12 hours, First dose on Mon05/09/19 at 0900, Until Discontinued New 05/13/2019 5:20 AM BUTTON CUTTING MACHINE OPERATOR 100 m g 100 mL/hr 05/12/2019 7:03 PM BUTTON CUTTING MACHINE OPERATOR 100 mg 100 mL/hr 05/12/2019 5:37 AM BUTTON CUTTING MACHINE OPERATOR 100 mg 100 mL/hr enoxaparin (LOVENOX) 40 MG/0.4ML syringe 40 mg 40 mg, Subcutaneous, Every 24 hours, First dose on Mon05/08/19 at 0900, Until Discontinued, Administer by deep SubQ injection alternating between the left or right anterolateral and left or right posterolateral abdominal wall. Given 05/17/2019 10:03 AM BUTTON CUTTING MACHINE OPERATOR 40 mg Right Upper Abdomen Given 05/16/2019 8:52 AM BUTTON CUTTING MACHINE OPERATOR 40 mg Ri ght Lower Abdomen Given 05/15/2019 9:51 AM BUTTON CUTTING MACHINE OPERATOR 40 mg Ri ght Lower Abdomen gabapentin (NEURONTIN) capsule 300 mg 300 mg, Oral, 3 times daily, First dose on Mon05/13/19 at 1745, Until Discontinued Given 05/17/2019 10:05 AM BUTTON CUTTING MACHINE OPERATOR 300 mg Given 05/16/2019 9:14 PM BUTTON CUTTING MACHINE OPERATOR 300 mg Given 05/16/2019 4:06 PM BUTTON CUTTING MACHINE OPERATOR 300 mg heparin flush 100 unit/mL injection Code/trauma/sedation medication, Starting on Mon05/09/19 at 1506, Until Mon05/09/19 at 1506 Given 05/09/2019 3:06 PM BUTTON CUTTING MACHINE OPERATOR 500 Units insulin lispro (HUMALOG) injection 0-16 [...] and Call Physician] Given 05/17/2019 10:02 AM BUTTON CUTTING MACHINE OPERATOR 10 Units Right Lower Abdomen Given 05/16/2019 5:59 PM BUTTON CUTTING MACHINE OPERATOR 6 Units Le ft Lower Abdomen Given 05/16/2019 11:55 AM BUTTON CUTTING MACHINE OPERATOR 6 Units R ight Arm insulin lispro [...] and Call Physician] Given 05/16/2019 9:14 PM BUTTON CUTTING MACHINE OPERATOR 7 Units Left Lower Abdomen Given 05/15/2019 9:15 PM BUTTON CUTTING MACHINE OPERATOR 3 Units Ri ght Upper Abdomen Given 05/14/2019 9:51 PM BUTTON CUTTING MACHINE OPERATOR 3 Units Ri ght Arm insulin regular (NOVOLIN R/HUMULIN R) injection 5 Units 5 Units, Intravenous, Once, 1 dose, On Mon05/07/19 at 1500, For sliding scale, activate Sliding Scale Insulin order set. Given 05/07/2019 3:47 PM [employer] CUTTING MACHINE OPERATOR 5 Units levofloxacin (LEVAQUIN) tablet 500 mg 500 mg, Oral, Daily, 10 doses, First dose on Mon05/13/19 at 1015, Last dose on Mon05/22/19 at 0900 Given 05/17/2019 10:11 AM [employer] CUTTING MACHINE OPERATOR 500 mg Given 05/16/2019 8:53 AM [employer] CUTTING MACHINE OPERATOR 500 mg Given 05/15/2019 9:51 AM [employer] CUTTING MACHINE OPERATOR 500 mg levothyroxine (SYNTHROID) tablet 100 mcg 100 mcg, Oral, Daily (levothyroxine), First dose on Mon05/08/19 at 0600, Until Discontinued, Avoid iron, calcium, and antacids within 4 hours of administration. Given 05/17/2019 6:04 AM CS T 100 mcg Given 05/16/2019 5:32 AM [employer]TON CUTTING MACHINE OPERATOR 100 mcg Given 05/15/2019 6:30 AM [employer] CUTTING MACHINE OPERATOR 100 mcg losartan (COZAAR) tablet 100 mg 100 mg, Oral, Daily, First dose (after last reorder) on Mon05/08/19 at 0900, Until Discontinued, Therapeutic interchange for valsartan 160mg per P&T ProtocolIndications:Hypertension,heart failure Given 05/17/2019 10:05 AM [employer] CUTTING MACHINE OPERATOR 100 mg Given 05/16/2019 8:53 AM BUTTON CUTTING MACHINE OPERATOR 100 mg Given 05/15/2019 9:51 AM [employer] CUTTING MACHINE OPERATOR 100 mg polyethylene glycol (GLYCOLAX) packet 17 g 17 g, Oral, Daily as needed, Constipation, Starting on Mon05/07/19 at 2219, Until Mon05/17/19 at 1505, If both senna and polyethylene glycol are ordered, use 1st; if no response by next dosing interval, go to next option. Given 05/16/2019 11:45 AM BUT[employer] CUTTING MACHINE OPERATOR 17 g Given 05/13/2019 5:30 AM [employer] CUTTING MACHINE OPERATOR 17 g potassium chloride CR (K-TAB) tablet 20 mEq 20 mEq, Oral, Once, 1 dose, On Mon05/07/19 at 1815, Do not break, chew, or crush. Given 05/07/2019 6:16 PM [employer] CUTTING MACHINE OPERATOR 20 mEq potassium chloride CR (K-TAB) tablet 40 mEq 40 mEq, Oral, Once, 1 dose, On Mon05/07/19 at 1345, Do not break, chew, or crush. Given 05/07/2019 3:45 PM BUT[employer] CUTTING MACHINE OPERATOR 40 mEq potassium chloride CR (K-TAB) tablet 40 mEq 40 mEq, Oral, Once, 1 dose, On Mon05/08/19 at 1430, Do not break, chew, or crush. Given 05/08/2019 2:41 PM [employer] CUTTING MACHINE OPERATOR 40 mEq potassium chloride CR (K-TAB) tablet 40 mEq 40 mEq, Oral, Once, 1 dose, On Chari 05/09/19 at 1100, Do not break, chew, or crush. Given 05/09/2019 11:26 AM [employer] CUTTING MACHINE OPERATOR 40 mEq sodium chloride 0.9% bolus infusion SOLN 1,000 mL 1,000 mL, Intravenous, Administer over 15 Minutes, Once, 1 dose, On Mon05/07/19 at 1500 New 05/07/2019 3:45 PM [employer]TON CUTTING MACHINE OPERATOR 1,000 mLs sodium chloride 0.9% infusion at 100 mL/hr, Intravenous, Continuous, Starting on Mon05/07/19 at 1730, Until 05/11/19 at 1448 New 05/10/2019 11:21 PM BUTTON CUTTING MACHINE OPERATOR 100 mL/hr New 05/10/2019 1:17 PM BUTTON CUTTING MACHINE OPERATOR 100 mL/hr New 05/10/2019 2:34 AM BUTTON CUTTING MACHINE OPERATOR 100 mL/hr sodium chloride 0.9% infusion at 10 mL/hr, Intravenous, Continuous, Starting on Mon05/15/19 at 0845, Until Mon05/16/19 at 0844, Infuse at TKO rate New 05/15/2019 12:14 PM BUTTON CUTTING MACHINE OPERATOR 250 mLs 10 mL/hr vancomycin (VANCOCIN) 1,250 mg in sodium chloride 0.9 % 250 mL IVPB 1,250 mg, Intravenous, at 175 mL/hr, Once, 1 dose, On Mon05/07/19 at 1815 New 05/07/2019 6:53 PM BUTTON CUTTING MACHINE OPERATOR 1,250 mg 175 mL/hr vancomycin (VANCOCIN) 1,500 mg in sodium chloride 0.9 % 500 mL IVPB 1,500 mg, Intravenous, at 257.5 mL/hr, Every 24 hours, First dose (after last reorder) on Mon05/08/19 at 1900, Until Discontinued 05/08/2019 6:33 PM BUTTON CUTTING MACHINE OPERATOR 1,500 mg 257.5 mL/hr documented in this encounter Active and Recently Administered Medications Times are shown in BUTTON CUTTING MACHINE OPERATOR. Scheduled Medication Order 05/15/2019 05/16/2019 05/17/2019 atorvastatin [...] For IV push give over 1-2 minutes=5mg/min. wapfpxvaz-jwtnekzj-ywkbcjf cone (MYLANTA MAXIMUM STRENGTH) [id number] mg/30mL suspension 10 mL, Oral, Every 4 [...] Physician] documented in this encounter Care Teams Director Hardware Relationship Specialty Start Date End Date Rick Glez MD [address] [place] [address] PCP - General INTERNAL MEDICINE 02/10/19 05/09/19 Don Branham MD [address] [place] [address] PCP - General EMERGENCY MEDICINE 05/10/19 Damon Swanosn MD INTERNAL MEDICINE 12/10/18 documented as of this encounter
--- OUTSIDE RECORDS SUMMARY | 2024-02-27 03:27 | XMS_ITS | Encounter Summary ---
Author Organization [facility] Address [address] [place] [address]. [place] [address] [place] [address] Care Team Providers Care Computer System Validation Specialist Name Role Phone Cecilio Aldrich MD Primary Care Provider [phone] Damon Swanson MD Unavailable [phone] Encounter Details Date Type Department Care Team (Latest Contact Info) Description 12/20/2018 10:30 AM CDT Home Care Visit [address] [place] [address] [place] [address] Angeline Mejia, OT [facility] [place] [address] OT INITIAL EVALUATION Social History Tobacco Use [...] changes or concerns reported to supervising therapist, spring encaser and or provider. Therapies Vitals No OT [...] each isit and report any changes to spring encaser and/or supervising OT. Problem:Therapies Medications Goal:Therapies - [...] wheeled walker. Therapies - Vitals Description: OT, spring encaser and/or physician to be contacted if pulse [...] awareness. documented in this encounter Care Teams Computer System Validation Specialist Relationship Specialty Start Date End Date Cecilio Aldrich MD [address] [place] [address] PCP - General FOOTWEAR SALES COORDINATOR 12/10/18 02/09/19 Damon Swanson MD [address] [place] [address] INTERNAL MEDICINE 12/10/18 documented as of this encounter
--- OUTSIDE RECORDS SUMMARY | 2024-02-27 03:27 | XMS_ITS | Encounter Summary ---
Author Organization [facility] Address [address] [place] [address]. [place] [address] [place] [address] Care Team Providers Care Jewel Grinder Name Role Phone Cecilio Aldrich MD Primary Care Provider [phone] Damon Swanson MD Unavailable [phone] Reason for Visit * Reason Comments Wound Encounter Details Date Type Department Care Team (Late st Contact Info) Description 12/21/2018 10:30 AM CDT Home Care Visit [facility] Care [address] [place] [address] Adele Zamora RN [phone] (Work) SN HOME VISIT Social History [...] Visit Type -SN - Home Visit Discipline -Senior Care Problems Problem Description Start Date Status Goals Interve ntions Discharge Planning Disciplines: Senior Care Discharge Planning 12/19/2018 Active 1 goal linked to scheduled/docume nted intervention 1 goal intervention scheduled/documen monalisa in this visit Care Coordination Disciplines: Senior Care Management and coordination of patient care 12/19/2018 Active 1 goal linked to scheduled/docume nted intervention 2 goal interventions scheduled/documen monalisa in this visit Homebound Status Disciplines: Senior Care Patient meets requirements of homebound status as evidenced by 02/1412/19/2018 Active 1 goal linked to scheduled/docume nted intervention 1 problem intervention scheduled/documen monalisa in this visit A Plan for Next Visit Disciplines: Senior Care Plan for next visit 12/19/2018 Active 1 goal linked to scheduled/docume nted intervention 1 goal intervention scheduled/documen monalisa in this visit Home Safety Disciplines: Senior Care Management and evaluation of patient's home environment 12/19/2018 Active 1 goal linked to scheduled/docume nted intervention 3 goal interventions scheduled/documen monalisa in this visit Medications Disciplines: Senior Care Management of home medications 12/19/2018 Active 1 goal linked to scheduled/docume nted intervention 3 goal interventions scheduled/documen monalisa in this visit Blood Glucose Monitoring Disciplines: Senior Care Skilled assessment and evaluation of blood glucose monitoring 12/19/2018 Active 1 goal linked to scheduled/docume nted intervention 2 goal interventions scheduled/documen monalsia in this visit Management and Evaluation of the Care Plan Disciplines: Senior Care SN for management and evaluation of skilled services 12/19/2018 Active 1 goal linked to scheduled/docume nted intervention 1 goal intervention scheduled/documen monalisa in this visit Home Health Aide Supervisory Visit Disciplines: Senior Care Supervision of HH Aide, LIBRARY MANAGER or NICHOLS 12/19/2018 Active 1 goal linked to scheduled/docume nted intervention 1 goal intervention scheduled/documen monalisa in this visit Nutritional concerns Disciplines: Senior Care Inadequate/imbala nced nutritional concerns 12/19/2018 Active 1 goal linked to scheduled/docume nted intervention 1 goal intervention scheduled/documen monalisa in this visit Pulse Oximetry Disciplines: Senior Care Skilled assessment and monitoring of O2 saturations. 12/19/2018 Active 1 goal linked to scheduled/docume nted intervention 1 goal intervention scheduled/documen monalisa in this visit Wound Care Disciplines: Senior Care Alteration in skin integrity 12/19/2018 Active 1 [...] Care Plan Met This Shift No SN IT INTEGRATION ARCHITECT Supervision Description: RN to supervise Home Health [...] . Problem:Home Health Aide Supervisory Visit Goal:SN IT INTEGRATION ARCHITECT Supervision Completed Instruct diet Description: Instruct on [...] Completed documented in this encounter Care Teams Jewel Grinder Relationship Specialty Start Date End Date Cecilio Aldrich MD [address] [place] [address] PCP - General TRAVEL SPECIALIST 12/10/18 02/09/19 Damon Swanson MD [address] [place] [address] INTERNAL MEDICINE 12/10/18 documented as of this encounter
--- OUTSIDE RECORDS SUMMARY | 2024-02-27 03:27 | XMS_ITS | Encounter Summary ---
Author Organization [facility] Address [address] [place] [address]. [place], [place] [address] [place] [address] Care Team Providers Care Deburr Technician Name Role Phone Cecilio Aldrich MD Primary Care Provider [phone] Damon Swanson MD Unavailable [phone] Encounter Details Date Type Department Care Team (Latest Contact Info) Description 12/27/2018 8:45 AM CDT Home Care Visit [address] [place] [address] [place] [address] Daniela Harrington, POLICE OFFICER POLICE OFFICER HH/HOSPICE TELEPHONE ENCOUNTER/VISIT Social History Tobacco Use [...] Description Start Date Status Goals Interve ntions POLICE OFFICER Community Resource Planning Disciplines: Medical Social Work Assist with community resources 12/26/2018 Active 1 goal linked to scheduled/documen monalisa intervention 1 goal intervention scheduled/document ed in this visit Goals Goal Associated Problem Outcome Goal Met? Visit Notes POLICE OFFICER Community Resource Planning Description: Patient will move to assisted living/nursing facility of choice for so that level of care needs are better met by 01/22/19. POLICE OFFICER Community Resource Planning No Interventions Intervention Associated Problem/Goal Status Variance Visit Notes POLICE OFFICER community resource planning Description: POLICE OFFICER to assist with community resource planning related to more supportive living arrangement. Patient reports that she lives with her granddaughter, but she does not provide any assistance other than letting patient sleep on the couch and occasionally provides some food for patient. Patient reports that she is interested in moving to an assisted living/usp. Patient reports preference for [facility] in [place] and [facility] for assisted living and did not have a preference for nursing facility. POLICE OFFICER spoke with Sylvia Reynaga RN case manager who confirms that due to patient's inability to transfer independently, patient would be more appropriate for usp care over CORRECTION care. POLICE OFFICER to contact area nursing facilities for bed availability to obtain fax number to insure patient's information if forwarded to those facilities for admission review. Problem:POLICE OFFICER Community Resource Planning Goal:POLICE OFFICER Community Resource Planning Scheduled documented in this encounter Care Teams Deburr Technician Relationship Specialty Start Date End Date Cecilio Aldrich MD [address] [place] [address] PCP - General BLOW PIT HELPER 12/10/18 02/09/19 Damon Swanson MD [address] [place] [address] INTERNAL MEDICINE 12/10/18 documented as of this encounter
--- OUTSIDE RECORDS SUMMARY | 2024-02-27 03:27 | XMS_ITS | Encounter Summary ---
Author Organization [facility] Address [address] [place] [address]. [place], [place] [address] [place] [address] Care Team Providers Care Cottage Supervisor Name Role Phone Cecilio Aldrich MD Primary Care Provider [phone] Damon Swanson MD Unavailable [phone] Reason for Visit * Reason Comments Wound Encounter Details Date Type Department Care Team (Late st Contact Info) Description 12/24/2018 8:30 AM CDT Home Care Visit [facility] Care [address] [place] [address] Adele Zamora RN [phone] (Work) SN HOME VISIT Social History [...] Visit Type -SN - Home Visit Discipline -Shelter Problems Problem Description Start Date Status Goals Interve ntions Discharge Planning Disciplines: Shelter Discharge Planning 12/19/2018 Active 1 goal linked to scheduled/docume nted intervention 1 goal intervention scheduled/documen monalisa in this visit Care Coordination Disciplines: Shelter Management and coordination of patient care 12/19/2018 Active 1 goal linked to scheduled/docume nted intervention 2 goal interventions scheduled/documen monalisa in this visit Homebound Status Disciplines: Shelter Patient meets requirements of homebound status as evidenced by 02/1412/19/2018 Active 1 goal linked to scheduled/docume nted intervention 1 problem intervention scheduled/documen monalisa in this visit A Plan for Next Visit Disciplines: Shelter Plan for next visit 12/19/2018 Active 1 goal linked to scheduled/docume nted intervention 1 goal intervention scheduled/documen monalisa in this visit Home Safety Disciplines: Shelter Management and evaluation of patient's home environment 12/19/2018 Active 1 goal linked to scheduled/docume nted intervention 3 goal interventions scheduled/documen monalisa in this visit Medications Disciplines: Shelter Management of home medications 12/19/2018 Active 1 goal linked to scheduled/docume nted intervention 3 goal interventions scheduled/documen monalisa in this visit Blood Glucose Monitoring Disciplines: Shelter Skilled assessment and evaluation of blood glucose monitoring 12/19/2018 Active 1 goal linked to scheduled/docume nted intervention 2 goal interventions scheduled/documen monalisa in this visit Management and Evaluation of the Care Plan Disciplines: Shelter SN for management and evaluation of skilled services 12/19/2018 Active 1 goal linked to scheduled/docume nted intervention 1 goal intervention scheduled/documen monalisa in this visit Home Health Aide Supervisory Visit Disciplines: Shelter Supervision of HH Aide, GERIATRIC SOCIAL WORK PROFESSOR or NICHOLS 12/19/2018 Active 1 goal linked to scheduled/docume nted intervention 1 goal intervention scheduled/documen monalisa in this visit Nutritional concerns Disciplines: Shelter Inadequate/imbala nced nutritional concerns 12/19/2018 Active 1 goal linked to scheduled/docume nted intervention 1 goal intervention scheduled/documen monalisa in this visit Pulse Oximetry Disciplines: Shelter Skilled assessment and monitoring of O2 saturations. 12/19/2018 Active 1 goal linked to scheduled/docume nted intervention 1 goal intervention scheduled/documen monalisa in this visit Wound Care Disciplines: Shelter Alteration in skin integrity 12/19/2018 Active 1 [...] Care Plan Met This Shift No SN ROLLER SKATER Supervision Description: RN to supervise Home Health [...] . Problem:Home Health Aide Supervisory Visit Goal:SN ROLLER SKATER Supervision Completed Instruct diet Description: Instruct on [...] Completed documented in this encounter Care Teams Cottage Supervisor Relationship Specialty Start Date End Date Cecilio Aldrich MD [address] [place] [address] PCP - General WEDDING CAKE DESIGNER 12/10/18 02/09/19 Damon Swanson MD [address] [place] [address] INTERNAL MEDICINE 12/10/18 documented as of this encounter
--- OUTSIDE RECORDS SUMMARY | 2024-02-27 03:27 | XMS_ITS | Encounter Summary ---
Author Organization [facility] Address [address] [place] [address]. [place] [address] [place] [address] Care Team Providers Care Correctional Treatment Specialist Name Role Phone Cecilio Aldrich MD Primary Care Provider [phone] Damon Swanson MD Unavailable [phone] Encounter Details Date Type Department Care Team (Late st Contact Info) Description 12/26/2018 8:00 AM CDT Home Care Visit [facility] Care [address] [place] [address] Deneen Wilkes, ONIEL [address] [place] [address] NICHOLS HOME VISIT Social History Tobacco Use [...] or concerns reported to supervising therapist, case supervisor and or provider. Therapies Vitals Met This [...] each isit and report any changes to case supervisor and/or supervising OT. Problem:Therapies Medications Goal:Therapies - [...] Understanding verbalized. Therapies - Vitals Description: OT, case supervisor and/or physician to be contacted if pulse [...] SBA. documented in this encounter Care Teams Correctional Treatment Specialist Relationship Specialty Start Date End Date Cecilio Aldrich MD [address] [place] [address] PCP - General CREDIT ASSOCIATE 12/10/18 02/09/19 Damon Swanson MD [address] [place] [address] INTERNAL MEDICINE 12/10/18 documented as of this encounter
--- OUTSIDE RECORDS SUMMARY | 2024-02-27 03:27 | XMS_ITS | Encounter Summary ---
Author Organization [facility] Address [address] [place] [address]. [place] [address] [place] [address] Care Team Providers Care Cover Inspector Name Role Phone Cecilio Aldrich MD Primary Care Provider [phone] Damon Swanson MD Unavailable [phone] Encounter Details Date Type Department Care Team (Late st Contact Info) Description 01/02/2019 11:00 AM CDT Home Care Visit [address] [place] [address] Leydi Harmon, PT [address] [place] [address] PT REASSESSMENT Social History Tobacco Use Types [...] changes or concerns reported to supervising therapist, upper caser, and/or provider. Therapies Vitals Met This [...] each visit and report any changes to upper caser and/or supervising PT Problem:Therapies Medications Goal:Therapies [...] understanding. Therapies - Vitals Description: PT , upper caser, and/or physician to be contacted if [...] minisquats. documented in this encounter Care Teams Cover Inspector Relationship Specialty Start Date End Date Cecilio Aldrich MD [address] [place] [address] PCP - General ABORIGINAL CEREMONIAL CELEBRANT 12/10/18 02/09/19 Damon Swanson MD [address] [place] [address] INTERNAL MEDICINE 12/10/18 documented as of this encounter
--- OUTSIDE RECORDS SUMMARY | 2024-02-27 03:27 | XMS_ITS | Encounter Summary ---
Author Organization [facility] Address [address] [place] [address]. [place], [place] [address] [place] [address] Care Team Providers Care Chief Nurse Executive Name Role Phone Cecilio Aldrich MD Primary Care Provider [phone] Damon Swanson MD Unavailable [phone] Encounter Details Date Type Department Care Team (Latest Contact Info) Description 01/04/2019 1:00 PM CDT Home Care Visit [address] [place] [address] [place] [address] Daniela Harrington, CLIENT DEVELOPMENT DIRECTOR CLIENT DEVELOPMENT DIRECTOR HH/HOSPICE TELEPHONE ENCOUNTER/VISIT Social History Tobacco Use [...] Description Start Date Status Goals Interve ntions CLIENT DEVELOPMENT DIRECTOR Community Resource Planning Disciplines: Medical Social Work Assist with community resources 12/26/2018 Active 1 goal linked to scheduled/documen monalisa intervention 1 goal intervention scheduled/document ed in this visit Goals Goal Associated Problem Outcome Goal Met? Visit Notes CLIENT DEVELOPMENT DIRECTOR Community Resource Planning Description: Patient will move to assisted living/nursing facility of choice for so that level of care needs are better met by 01/22/19. CLIENT DEVELOPMENT DIRECTOR Community Resource Planning No Interventions Intervention Associated Problem/Goal Status Variance Visit Notes CLIENT DEVELOPMENT DIRECTOR community resource planning Description: CLIENT DEVELOPMENT DIRECTOR to assist with community resource planning related to more supportive living arrangement. Patient reports that she lives with her granddaughter, but she does not provide any assistance other than letting patient sleep on the couch and occasionally provides some food for patient. Patient reports that she is interested in moving to an assisted living/snf. Patient reports preference for [facility] in [place] and [facility] for assisted living and did not have a preference for nursing facility. CLIENT DEVELOPMENT DIRECTOR spoke with Sylvia Reynaga RN case manager who confirms that due to patient's inability to transfer independently, patient would be more appropriate for snf care over SHELTER care. CLIENT DEVELOPMENT DIRECTOR to contact area nursing facilities for bed availability to obtain fax number to insure patient's information if forwarded to those facilities for admission review. Problem:CLIENT DEVELOPMENT DIRECTOR Community Resource Planning Goal:CLIENT DEVELOPMENT DIRECTOR Community Resource Planning Scheduled documented in this encounter Care Teams Chief Nurse Executive Relationship Specialty Start Date End Date Cecilio Aldrich MD [address] [place] [address] PCP - General BANANA RIPENING ROOM SUPERVISOR 12/10/18 02/09/19 Damon Swanson MD [address] [place] [address] INTERNAL MEDICINE 12/10/18 documented as of this encounter
--- OUTSIDE RECORDS SUMMARY | 2024-02-27 03:27 | XMS_ITS | Encounter Summary ---
Author Organization [facility] Address [address] [place] [address]. [place] [address] [place] [address] Care Team Providers Care Exercise Scientist Name Role Phone Cecilio Aldrich MD Primary Care Provider [phone] Damon Swanson MD Unavailable [phone] Encounter Details Date Type Department Care Team (Latest Contact Info) Description 12/20/2018 5:03 PM CDT - 12/20/2018 11:59 PM CDT Hospital Encounter [facility] [place] [address] Babar Sullivan MD Discharge Disposition: Home or [...] and inflammation of bilateral lower extremity (CODE) ([facility]) documented in this encounter Results * CULTURE ANAEROBIC (12/20/2018 3:21 PM CDT) SPEC DESCRIPTION LEG,LEFT 12/20/2018 5:04 PM CDT [facility] SPECIAL REQUESTS NO SPECIAL REQUEST 12/20/2018 5:04 PM CDT [facility] GRAM STAIN RESULT NO WHITE BLOOD CELLS SEEN 12/21/2018 2:36 PM CDT [facility] GRAM STAIN RESULT NO ORGANISMS SEEN 12/21/2018 2:36 PM CDT [facility] CULTURE RESULT LIGHT GROWTH OF PROTEUS MIRABILIS 12/25/2018 1:01 PM CDT [facility] CULTURE RESULT LIGHT GROWTH OF STREPTOCOCCI, BETA HEMOLYTIC GROUP B SUSCEPTIBILTY NOT ROUTINELY PERFORMED. SAVING ISOLATE FOR 5 DAYS. CONTACT MICROBIOLOGY DEPARTMENT IF FURTHER WORKUP IS INDICATED. 12/25/2018 1:01 PM CDT [facility] CULTURE RESULT LIGHT GROWTH OF STAPHYLOCOCCUS AUREUS 12/25/2018 1:01 PM T [facility] CULTURE RESULT NOTE: ANAEROBIC CULTURES ARE ROUTINELY SCREENED FOR BOTH AEROBIC AND ANAEROBIC ORGANISMS. 12/25/2018 1:01 PM CDT [facility] STRUCTURE OF LEFT LOWER LIMB [...] MICROBIOLOGY - GENERAL ORDERABLE S Final Result [facility] [address] [place] [address], documented in this encounter Visit Diagnoses Diagnosis Chronic venous hypertension (idiopathic) with ulcer and inflammation of bilateral lower extremity (CODE) (CMS/HCC HHS/HCC) documented in this encounter Care Teams Exercise Scientist Relationship Specialty Start Date End Date Cecilio Aldrich MD [address] [place] [id number] PCP - General SENIOR DATABASE ADMINISTRATOR 12/10/18 02/09/19 Damon Swanson MD [address] [place], [place] [id number] INTERNAL MEDICINE 12/10/18 documented as of this encounter
--- OUTSIDE RECORDS SUMMARY | 2024-02-27 03:27 | XMS_ITS | Encounter Summary ---
Author Organization [facility] Address [address] [place] [address]. [place] [address] [place] [address] Care Team Providers Care Network Operations Project Manager Name Role Phone Cecilio Aldrich MD Primary Care Provider [phone] Damon Swanson MD Unavailable [phone] Encounter Details Date Type Department Care Team (Late st Contact Info) Description 01/03/2019 2:00 PM CDT Home Care Visit [address] [place] [address] [place] [address] Jennifer Gray, PENDING SALE TO [facility] AIDE HOME VISIT Social History Tobacco [...] Notes Hygiene Needs Met with Assist of PERIPHERAL VASCULAR TECH Description: Hygiene and safety needs will be met with assist of PERIPHERAL VASCULAR TECH by 02/14/19. Client will progress towards increased independence in performance of self cares. Aide for personal cares/mobility/ADL's Met This Shift No Interventions Intervention Associated Problem/Goal Status Variance Visit Notes Aide assist with shampoo Description: Assist with shampooing hair Problem:Aide for personal cares/mobility/ADL' s Goal:Hygiene Needs Met with Assist of PERIPHERAL VASCULAR TECH Completed with variance Patient refused Aide Communication tool Description: Complete PERIPHERAL VASCULAR TECH communication Problem:Aide for personal cares/mobility/ADL' s Goal:Hygiene Needs Met with Assist of PERIPHERAL VASCULAR TECH Completed Last BM Date: 01/03/19 Shampoo: No Bathing: Complete, Partial Nail Care: Yes Clothing change: Yes Bruised, open or red areas: None noted Nurse notified or aware: No Aide cleanse perineal Description: Cleanse perineal area Problem:Aide for personal cares/mobility/ADL' s Goal:Hygiene Needs Met with Assist of PERIPHERAL VASCULAR TECH Completed Aide personal care Description: Personal Care: shampoo hair, brush teeth, skin care and apply cream/lotion Problem:Aide for personal cares/mobility/ADL' s Goal:Hygiene Needs Met with Assist of PERIPHERAL VASCULAR TECH Completed Aide inspect skin Description: Inspect skin for signs of pressure or irritation. After bathing reapply moisturizer and moisture barrier. Report any observed or patient reported concerns to RN. Problem:Aide for personal cares/mobility/ADL' s Goal:Hygiene Needs Met with Assist of PERIPHERAL VASCULAR TECH Completed Aide tub/shower bath Description: Assistance with bathing using tub, hand-held shower and bath bench. Clean shower after bathing. Problem:Aide for personal cares/mobility/ADL' s Goal:Hygiene Needs Met with Assist of PERIPHERAL VASCULAR TECH Completed documented in this encounter Care Teams Network Operations Project Manager Relationship Specialty Start Date End Date Cecilio Aldrich MD [address] [place], [place] [id number] PCP - General LINE BUILDER 12/10/18 02/09/19 Damon Swanson MD [address] [place], [place] [id number] INTERNAL MEDICINE 12/10/18 documented as of this encounter
--- OUTSIDE RECORDS SUMMARY | 2024-02-27 03:27 | XMS_ITS | Encounter Summary ---
Author Organization [facility] Address [address] [place] [address]. [place] [address] [place] [address] Care Team Providers Care Resort Host Name Role Phone Damon Swanson MD Unavailable [phone] Kimberley Durant MD Primary Care Provider [phone] Encounter Details Date Type Department Care Team (Late st Contact Info) Description 02/12/2019 2:45 PM RESTRICTIVE PREPARATION OPERATOR Office Visit [facility] [address] [place] [address] Babar Sullivan MD Social History Tobacco Use [...] Diagnosis Comments PATHOLOGY Routine 02/12/2019 12:00 AM RESTRICTIVE PREPARATION OPERATOR Ulcer of lower extremity, limited to breakdown of skin, unspecified laterality ([facility]/HCC HHS/HCC) documented in this encounter Results * CULTURE, WOUND, W/GRAM STAIN (02/12/2019 5:22 PM RESTRICTIVE PREPARATION OPERATOR) SPEC DESCRIPTION LEG,LEFT 02/12/2019 5:23 PM RESTRICTIVE PREPARATION OPERATOR [facility] SPECIAL REQUESTS NO SPECIAL REQUEST 02/12/2019 5:23 PM [facility] GRAM STAIN RESULT NO WHITE BLOOD CELLS SEEN 02/13/2019 9:05 AM [facility] GRAM STAIN RESULT RARE RED BLOOD CELLS SEEN 02/13/2019 9:05 AM [facility] GRAM STAIN RESULT NO ORGANISMS SEEN 02/13/2019 9:05 AM [facility] CULTURE RESULT NO GROWTH 3 DAYS 02/15/2019 9:05 AM [facility] CULTURE RESULT NOTE: WOUND AND TISSUE CULTURES ARE ROUTINELY SCREENED FOR AEROBIC ORGANISMS ONLY. 02/15/2019 9:05 AM [facility] STRUCTURE OF LEFT LOWER LIMB / Unknown 02/12/2019 5:22 PM RESTRICTIVE PREPARATION OPERATOR 02/12/2019 5:44 PM RESTRICTIVE PREPARATION OPERATOR us Babar Sullivan MD MICROBIOLOGY - GENERAL ORDERABLE S Final Result [facility] [address] [place] [address], * PATHOLOGY (02/12/2019 12:00 AM RESTRICTIVE PREPARATION OPERATOR) COPATH REPORT ? [facility] ? [address] ? [place], [place] [address] ? [id number] ? Department of Pathology ? Pathology Report ? SURGICAL FINAL REPORT Patient Name: IRIS GIL ? : 1955 (Age: 64) ? Location: [facility] Gender: F ?Collected Date: 02/12/2019 Med Rec #: [id number] ?Date Received: 02/13/2019 Date Reported: 02/14/2019 Provider: [...] in one cassette. : Billing Fee Code(s): [id number] [facility] 02/12/2019 02/13/2019 7:5 6 AM RESTRICTIVE PREPARATION OPERATOR Comment:LESION, LEFT LOWER E XTREMITY Babar Sullivan MD PATHOLOGY/CYTOLOGY ORDERABLES Fi nal Result [facility] [address] [place] [address], documented in this encounter Visit Diagnoses Diagnosis Ulcer of lower extremity, limited to breakdown of skin, unspecified laterality (CMS/HCC [facility]/HCC)- Primary documented in this encounter Care Teams Resort Host Relationship Specialty Start Date End Date Kimberley Durant MD [address] [place] [id number] PCP - General INTERNAL MEDICINE 02/10/19 05/09/19 Damon Swanson MD INTERNAL MEDICINE 12/10/18 documented as of this encounter
--- OUTSIDE RECORDS SUMMARY | 2024-02-27 03:27 | XMS_ITS | Encounter Summary ---
Author Organization [facility] Address [address] [place] [address]. [place] [address] [place] [address] Care Team Providers Care Electric Fork Operator Name Role Phone Cecilio Aldrich MD Primary Care Provider Damon Swanson MD Unavailable [phone] Encounter Details Date Type Department Care Team (Late st Contact Info) Description 01/07/2019 1:30 PM CDT Home Care Visit [address] [place] [address] Cris Lim, ROVING TECHNICIAN PT HOME VISIT Social History Tobacco Use [...] or concerns reported to supervising therapist, family service caseworker, and/or provider. Therapies Vitals Met This [...] visit and report any changes to family service caseworker and/or supervising PT Problem:Therapies Medications Goal:Therapies - Understanding of Medications - Physical Therapy Completed No new meds Instruct Home Safety Description: Instruct patient on strategies/modificatio ns to home environment. Problem:Home Safety Goal:Remain Safe in Home Completed Pt still requires 3 n 1 commode for bathroom due to low toilet seat and to remove throw rugs Therapies - Vitals Description: PT , family service caseworker, and/or physician to be contacted if [...] better documented in this encounter Care Teams Electric Fork Operator Relationship Specialty Start Date End Date Cecilio Aldrich MD [address] [place] [address] PCP - General [employer] AX DEVELOPER 12/10/18 02/09/19 Damon Swanson MD [address] [place] [address] INTERNAL MEDICINE 12/10/18 documented as of this encounter
--- OUTSIDE RECORDS SUMMARY | 2024-02-27 03:27 | XMS_ITS | Encounter Summary ---
Author Organization [facility] Address [address] [place] [address]. [place] [address] [place] [address] Care Team Providers Care Nip Wrapper Name Role Phone Cecilio Aldrich MD Primary Care Provider [phone] Damon Swanson MD Unavailable [phone] Encounter Details Date Type Department Care Team (Latest Contact Info) Description 01/07/2019 3:00 PM CDT Home Care Visit [address] [place] [address] [place] [address] Daniela Harrington, WICK TENDER TELEPHONE ENCOUNTER Social History Tobacco Use Types [...] on filedocumented in this encounter Care Teams Nip Wrapper Relationship Specialty Start Date End Date Cecilio Aldrich MD [address] [place] [address] PCP - General CLUB DIRECTOR 9/30/19 11/30/19 Damon Swanson MD [address] [place] [address] INTERNAL MEDICINE 12/10/18 documented as of this encounter
--- OUTSIDE RECORDS SUMMARY | 2024-02-27 03:27 | XMS_ITS | Encounter Summary ---
Author Organization [facility] Address [address] [place] [address]. [place] [address] [place] [address] Care Team Providers Care Coremaker Bench Name Role Phone Cecilio Aldrich MD Primary Care Provider [phone] Damon Swanson MD Unavailable [phone] Reason for Referral * Imaging (Routine) - Closed Specialty Diagnoses / Procedures Referred By Contac t Referred To Contact RADIOLOGY Diagnoses Chronic venous hypertension (idiopathic) with ulcer and inflammation of bilateral lower extremity (CODE) ([facility]/HCC [facility]/HCC) Procedures USV VENOUS REFLUX LOW BRENDON Babar Sullivan MD Referral ID Status Reason Start Date Expiration Date Visits Re quested Visits Authorized [id number] Closed 12/20/2018 01/20/2020 1 1 * Imaging (Routine) - Closed Specialty Diagnoses / Procedures Referred By Contac t Referred To Contact RADIOLOGY Diagnoses Peripheral arterial disease ([facility]) Procedures USV ART REST W ZAYNAB LOW EXT Babar Sullivan MD Referral ID Status Reason Start Date Expiration Date Visits Re quested Visits Authorized [id number] Closed 12/20/2018 01/20/2020 1 1 Encounter Details Date Type Department Care Team (Late st Contact Info) Description 12/20/2018 2:15 PM CDT Office Visit [facility] [place] [address] [address] Babar Sullivan MD Social History Tobacco Use [...] 0 AM CDT Narrative 02/06/2024 11:51 AM NET WASHER ?VENOUS DUPLEX IMAGING ?BILATERAL LOWER EXTREMITY ? VASCULAR LAB Pat.Name: ??ERICK GIL ? Pat.ID: ?[id number] ? St.Date: ?? 01/08/2019 ?Refer.MD: ??Cecilio Aldrich [...] 8 AM CDT Narrative 01/15/2019 10:32 PM NET WASHER ?ARTERIAL DOPPLER - ZAYNAB ?BILATERAL LOWER EXTREMITY ? VASCULAR LAB Pat.Name: ??ERICK GIL ? Pat.ID: ?[id number] ? St.Date: ?? 01/08/2019 ?Refer.MD: ??Cecilio Aldrich [...] ?? Right Anterior ?? 16.7 cm/s ? RADIO DIVISION CAPTAIN ?? Right RADIO DIVISION CAPTAIN Right ?? 111 cm/s ? Left RADIO DIVISION CAPTAIN Left V ? 0 ? Left RADIO DIVISION CAPTAIN Left P ?? 116 cm/s ? Peroneal [...] EXTREMITY VASCULAR LAB Pat.Name: ERICK GIL Pat.ID: [id number] .Date: 01/08/2019 Refer.MD: Cecilio Aldrich Exam Time: [...] DOPPLER Anterior Tibial Right Anterior 16.7 cm/s RADIO DIVISION CAPTAIN Right RADIO DIVISION CAPTAIN Right 111 cm/s Left RADIO DIVISION CAPTAIN Left V 0 Left RADIO DIVISION CAPTAIN Left P 116 cm/s Peroneal Right Peroneal [...] Khalif Dang, M.D. us Babar Sullivan MD [facility] Final Result * CULTURE ANAEROBIC (12/20/2018 3:21 PM CDT) SPEC DESCRIPTION LEG,LEFT 12/20/2018 5:04 PM CDT [facility] SPECIAL REQUESTS NO SPECIAL REQUEST 12/20/2018 5:04 PM CDT [facility] GRAM STAIN RESULT NO WHITE BLOOD CELLS SEEN 12/21/2018 2:36 PM CDT [facility] GRAM STAIN RESULT NO ORGANISMS SEEN 12/21/2018 2:36 PM CDT [facility] CULTURE RESULT LIGHT GROWTH OF PROTEUS MIRABILIS 12/25/2018 1:01 PM CDT [facility] CULTURE RESULT LIGHT GROWTH OF STREPTOCOCCI, BETA HEMOLYTIC GROUP B SUSCEPTIBILTY NOT ROUTINELY PERFORMED. SAVING ISOLATE FOR 5 DAYS. CONTACT MICROBIOLOGY DEPARTMENT IF FURTHER WORKUP IS INDICATED. 12/25/2018 1:01 PM CDT [facility] CULTURE RESULT LIGHT GROWTH OF STAPHYLOCOCCUS AUREUS 12/25/2018 1:01 PM T [facility] CULTURE RESULT NOTE: ANAEROBIC CULTURES ARE ROUTINELY SCREENED FOR BOTH AEROBIC AND ANAEROBIC ORGANISMS. 12/25/2018 1:01 PM CDT [facility] STRUCTURE OF LEFT LOWER LIMB / [...] ORDERABLE S Final Result Performing Organization Address [facility] Co de Phone Number [facility] [address] [place] [address], * (ABNORMAL) POCT glucose (12/20/2018 2:41 PM CDT) [facility] GLUCOSE POC 407(HH) 70 - 99 mg/dL 12/24/2018 8:34 AM CDT [facility] ORDERS INTERFACE 12/20/2018 2:41 PM CDT Babar Sullivan MD POCT ORDERABLES - DEVICE Final R esult Performing Organization Address City/[facility] Co de Phone Number [facility] ORDERS INTERFACE US documented in this [...] HHS/HCC) documented in this encounter Care Teams Coremaker Bench Relationship Specialty Start Date End Date Cecilio Aldrich MD [address] [place] [address] PCP - General COATING MIXER 12/10/18 02/09/19 Damon Swanson MD [address] [place] [address] INTERNAL MEDICINE 12/10/18 documented as of this encounter
--- OUTSIDE RECORDS SUMMARY | 2024-02-27 03:27 | XMS_ITS | Encounter Summary ---
Author Organization [facility] Address [address] [place] [address]. [place] [address] [place] [address] Care Team Providers Care Automation Qa Lead Name Role Phone Cecilio Aldrich MD Primary Care Provider [phone] Damon Swanson MD Unavailable [phone] Encounter Details Date Type Department Care Team (Late st Contact Info) Description 12/20/2018 8:30 AM CDT Home Care Visit [address] [place] [address] Yazmin Rodriguez HOME VISIT Social History Tobacco [...] Notes Hygiene Needs Met with Assist of KEG WASHER Description: Hygiene and safety needs will be met with assist of KEG WASHER by 02/14/19. Client will progress towards increased independence in performance of self cares. Aide for personal cares/mobility/ADL's Met This Shift No Interventions Intervention Associated Problem/Goal Status Variance Visit Notes Aide Communication tool Description: Complete KEG WASHER communication Problem:Aide for personal cares/mobility/ADL's Goal:Hygiene Needs Met with Assist of KEG WASHER Completed Last BM Date: N0 Shampoo: No Bathing: Complete Nail Care: No Clothing change: Yes Bruised, open or red areas Nurse notified or aware: No Aide assist with shampoo Description: Assist with shampooing hair Problem:Aide for personal cares/mobility/ADL's Goal:Hygiene Needs Met with Assist of KEG WASHER Completed Aide cleanse perineal Description: Cleanse perineal area Problem:Aide for personal cares/mobility/ADL's Goal:Hygiene Needs Met with Assist of KEG WASHER Completed Aide personal care Description: Personal Care: shampoo hair, brush teeth, skin care and apply cream/lotion Problem:Aide for personal cares/mobility/ADL's Goal:Hygiene Needs Met with Assist of KEG WASHER Completed Aide inspect skin Description: Inspect skin for signs of pressure or irritation. After bathing reapply moisturizer and moisture barrier. Report any observed or patient reported concerns to RN. Problem:Aide for personal cares/mobility/ADL's Goal:Hygiene Needs Met with Assist of KEG WASHER Completed Aide tub/shower bath Description: Assistance with bathing using tub, hand-held shower and bath bench. Clean shower after bathing. Problem:Aide for personal cares/mobility/ADL's Goal:Hygiene Needs Met with Assist of KEG WASHER Completed documented in this encounter Care Teams Automation Qa Lead Relationship Specialty Start Date End Date Cecilio Aldrich MD [address] [place] [address] PCP - General ORNAMENTAL IRON ERECTOR 12/10/18 02/09/19 Damon Swanson MD [address] [place] [address] INTERNAL MEDICINE 12/10/18 documented as of this encounter
--- OUTSIDE RECORDS SUMMARY | 2024-02-27 03:27 | XMS_ITS | Encounter Summary ---
Author Organization [facility] Address [address] [place] [address]. [place] [address] [place] [address] Care Team Providers Care Territory Manager Name Role Phone Cecilio Aldrich MD Primary Care Provider [phone] Damon Swanson MD Unavailable [phone] Encounter Details Date Type Department Care Team (Late st Contact Info) Description 01/09/2019 2:30 PM CDT Home Care Visit [address] [place] [address] Daniela Harrington, DIRECTOR OF ELEMENTARY EDUCATION CASE COMMUNICATION Social History Tobacco Use Types [...] on filedocumented in this encounter Care Teams Territory Manager Relationship Specialty Start Date End Date Cecilio Aldrich MD [address] [place] [address] PCP - General HEADER BOSS 12/10/18 02/09/19 Damon Swanson MD [address] [place] [address] INTERNAL MEDICINE 12/10/18 documented as of this encounter
--- OUTSIDE RECORDS SUMMARY | 2024-02-27 03:27 | XMS_ITS | Encounter Summary ---
Author Organization [facility] Address [address] [place] [address]. [place], [place] [address] [place] [address] Care Team Providers Care Deli Manager Name Role Phone Cecilio Aldrich MD Primary Care Provider [phone] Damon Swanson MD Unavailable [phone] Reason for Visit * Reason Comments Wound Encounter Details Date Type Department Care Team (Late st Contact Info) Description 01/03/2019 8:30 AM CDT Home Care Visit [facility] [address] [place] [address] Adele Zamora RN [phone] (Work) SN HOME VISIT Social History [...] Visit Type -SN - Home Visit Discipline -[facility] Problems Problem Description Start Date Status Goals Interve ntions Discharge Planning Disciplines: [facility] Discharge Planning 12/19/2018 Active 1 goal linked to scheduled/docume nted intervention 1 goal intervention scheduled/documen monalisa in this visit Care Coordination Disciplines: [facility] Management and coordination of patient care 12/19/2018 Active 1 goal linked to scheduled/docume nted intervention 2 goal interventions scheduled/documen monalisa in this visit Homebound Status Disciplines: [facility] Patient meets requirements of homebound status as evidenced by 02/1412/19/2018 Active 1 goal linked to scheduled/docume nted intervention 1 problem intervention scheduled/documen monalisa in this visit A Plan for Next Visit Disciplines: [facility] Plan for next visit 12/19/2018 Active 1 goal linked to scheduled/docume nted intervention 1 goal intervention scheduled/documen monalisa in this visit Home Safety Disciplines: [facility] Management and evaluation of patient's home environment 12/19/2018 Active 1 goal linked to scheduled/docume nted intervention 3 goal interventions scheduled/documen monalisa in this visit Medications Disciplines: [facility] Management of home medications 12/19/2018 Active 1 goal linked to scheduled/docume nted intervention 3 goal interventions scheduled/documen monalisa in this visit Blood Glucose Monitoring Disciplines: [facility] Skilled assessment and evaluation of blood glucose monitoring 12/19/2018 Active 1 goal linked to scheduled/docume nted intervention 2 goal interventions scheduled/documen monalisa in this visit Management and Evaluation of the Care Plan Disciplines: [facility] SN for management and evaluation of skilled services 12/19/2018 Active 1 goal linked to scheduled/docume nted intervention 1 goal intervention scheduled/documen monalisa in this visit Home Health Aide Supervisory Visit Disciplines: [facility] Supervision of HH Aide, ETHNIC STUDIES PROFESSOR or NICHOLS 12/19/2018 Active 1 goal linked to scheduled/docume nted intervention 1 goal intervention scheduled/documen monalisa in this visit Nutritional concerns Disciplines: [facility] Inadequate/imbala nced nutritional concerns 12/19/2018 Active 1 goal linked to scheduled/docume nted intervention 1 goal intervention scheduled/documen monalisa in this visit Pulse Oximetry Disciplines: [facility] Skilled assessment and monitoring of O2 saturations. 12/19/2018 Active 1 goal linked to scheduled/docume nted intervention 1 goal intervention scheduled/documen monalisa in this visit Wound Care Disciplines: [facility] Alteration in skin integrity 12/19/2018 Active 1 goal linked to scheduled/docume nted intervention 1 problem intervention scheduled/documen monalisa in this visit 3 goal interventions scheduled/documen monalisa in this visit Goals Goal Associated Problem Outcome Goal Met? Visit Notes Progress towards discharge Description: Documentation of ongoing progress towards goals through 02/14/19. Discharge Planning Met This Shift No possible patient to go to long-term after OBRA assessment by long-term tomorrow Coordination of Care Achieved Description: Coordination [...] Care Plan Met This Shift No SN DIRECTOR OF RADIO SERVICES Supervision Description: RN to supervise Home Health [...] container out of a dirty box for [facility] [employer] take out and saved it to eat [...] . Problem:Home Health Aide Supervisory Visit Goal:SN DIRECTOR OF RADIO SERVICES Supervision Completed Instruct diet Description: Instruct on [...] Completed documented in this encounter Care Teams Deli Manager Relationship Specialty Start Date End Date Cecilio Aldrich MD [address] [place] [address] PCP - General SORT LINE 12/10/18 02/09/19 Damon Swanson MD [address] [place] [address] INTERNAL MEDICINE 12/10/18 documented as of this encounter
--- OUTSIDE RECORDS SUMMARY | 2024-02-27 03:27 | XMS_ITS | Encounter Summary ---
Author Organization [facility] Address [address] [place] [address]. [place] [address] [place] [address] Care Team Providers Care Slag Dumper Name Role Phone Cecilio Aldrich MD Primary Care Provider [phone] Damon Swanson MD Unavailable [phone] Encounter Details Date Type Department Care Team (Latest Contact Info) Description 01/09/2019 9:30 AM CDT Home Care Visit [facility] [address] [place] [address] Leydi Harmon, PT [address] [place] [address] PT DISCIPLINE DISCHARGE Social History Tobacco Use [...] changes or concerns reported to supervising therapist, director of casework department, and/or provider. Therapies Vitals Completed Yes PT [...] each visit and report any changes to director of casework department and/or supervising PT Problem:Therapies Medications Goal:Therapies - [...] times. Therapies - Vitals Description: PT , director of casework department, and/or physician to be contacted if pulse [...] minisquats. documented in this encounter Care Teams Slag Dumper Relationship Specialty Start Date End Date Cecilio Aldrich MD [address] [place] [address] PCP - General AGRICULTURAL PILOT 12/10/18 02/09/19 Damon Swanson MD [address] [place] [address] INTERNAL MEDICINE 12/10/18 documented as of this encounter
--- OUTSIDE RECORDS SUMMARY | 2024-02-27 03:27 | XMS_ITS | Encounter Summary ---
Author Organization [facility] Address [address] [place] [address]. [place] [address] [place] [address] Care Team Providers Care Newspaper Editor Managing Name Role Phone Cecilio Aldrich MD Primary Care Provider [phone] Damon Swanson MD Unavailable [phone] Encounter Details Date Type Department Care Team (Late st Contact Info) Description 12/26/2018 11:30 AM CDT Home Care Visit [address] [place] [id number] Yazmin Rodriguez HOME VISIT Social History Tobacco [...] Notes Hygiene Needs Met with Assist of CARDIOPULMONARY SPECIALIST Description: Hygiene and safety needs will be met with assist of CARDIOPULMONARY SPECIALIST by 02/14/19. Client will progress towards increased independence in performance of self cares. Aide for personal cares/mobility/ADL's Met This Shift No Interventions Intervention Associated Problem/Goal Status Variance Visit Notes Aide Communication tool Description: Complete CARDIOPULMONARY SPECIALIST communication Problem:Aide for personal cares/mobility/ADL's Goal:Hygiene Needs Met with Assist of CARDIOPULMONARY SPECIALIST Completed Last BM Date: 12/26 Shampo: No Bathing: Partial Nail Care: No Clothing change: Yes Bruised, open or red areas: None noted Nurse notified or aware: No Aide assist with shampoo Description: Assist with shampooing hair Problem:Aide for personal cares/mobility/ADL's Goal:Hygiene Needs Met with Assist of CARDIOPULMONARY SPECIALIST Completed Aide cleanse perineal Description: Cleanse perineal area Problem:Aide for personal cares/mobility/ADL's Goal:Hygiene Needs Met with Assist of CARDIOPULMONARY SPECIALIST Completed Aide personal care Description: Personal Care: shampoo hair, brush teeth, skin care and apply cream/lotion Problem:Aide for personal cares/mobility/ADL's Goal:Hygiene Needs Met with Assist of CARDIOPULMONARY SPECIALIST Completed Aide inspect skin Description: Inspect skin for signs of pressure or irritation. After bathing reapply moisturizer and moisture barrier. Report any observed or patient reported concerns to RN. Problem:Aide for personal cares/mobility/ADL's Goal:Hygiene Needs Met with Assist of CARDIOPULMONARY SPECIALIST Completed Aide tub/shower bath Description: Assistance with bathing using tub, hand-held shower and bath bench. Clean shower after bathing. Problem:Aide for personal cares/mobility/ADL's Goal:Hygiene Needs Met with Assist of CARDIOPULMONARY SPECIALIST Completed documented in this encounter Care Teams Newspaper Editor Managing Relationship Specialty Start Date End Date Cecilio Aldrich MD [address] [place] [address] PCP - General PALLET RECTIFIER 12/10/18 02/09/19 Damon Swanson MD [address] [place] [address] INTERNAL MEDICINE 12/10/18 documented as of this encounter
--- OUTSIDE RECORDS SUMMARY | 2024-02-27 03:27 | XMS_ITS | Encounter Summary ---
Author Organization [facility] Address [address] [place] [address]. [place] [address] [place] [address] Care Team Providers Care Manager Long Term Care Name Role Phone Cecilio Aldrich MD Primary Care Provider [phone] Damon Swanson MD Unavailable [phone] Encounter Details Date Type Department Care Team (Late st Contact Info) Description 12/24/2018 10:30 AM CDT Home Care Visit [address] [place] [address] [place] [address] Tamra Alfaro, [facility] [phone] (Work) PT HOME VISIT Social History [...] or concerns reported to supervising therapist, telephonic nurse case manager, and/or provider. Therapies Vitals Met [...] each visit and report any changes to telephonic nurse case manager and/or supervising PT Problem:Therapies Medications [...] fall. Therapies - Vitals Description: PT , telephonic nurse case manager, and/or physician to be contacted [...] daily. documented in this encounter Care Teams Manager Long Term Care Relationship Specialty Start Date End Date Cecilio Aldrich MD [address] [place] [address] PCP - General BUTTER PRODUCTION SUPERVISOR 12/10/18 02/09/19 Damon Swanson MD [address] [place] [address] INTERNAL MEDICINE 12/10/18 documented as of this encounter
--- OUTSIDE RECORDS SUMMARY | 2024-02-27 03:27 | XMS_ITS | Encounter Summary ---
Author Organization [facility] Address [address] [place] [address]. [place] [address] [place] [address] Care Team Providers Care Correspondence Analyst Name Role Phone Damon Swanson MD Unavailable [phone] Rick Glez MD Primary Care Provider [phone] Reason for Visit * Reason Comments Leg Ulcer Encounter Details Date Type Department Care Team (Late st Contact Info) Description 02/21/2019 2:15 PM CORPORATE WELLNESS COORDINATOR Office Visit [facility] at [facility], [facility] [address], [place] [id number] Khalif Dang MD [facility]. [facility] [address], [place] [id number] Leg Ulcer Social History Tobacco Use Types [...] Comments Blood Pressure 110/62 02/21/2019 3:26 PM CORPORATE WELLNESS COORDINATOR Pulse 93 02/21/2019 3:26 PM CORPORATE WELLNESS COORDINATOR Temperature - - Respiratory Rate - - Oxygen Saturation - - Inhaled Oxygen Concentration - - Weight 87.5 kg (193 lb) 02/21/2019 3:26 PM CORPORATE WELLNESS COORDINATOR Height 157.5 cm (5' 2 ) 02/21/2019 3:26 PM CORPORATE WELLNESS COORDINATOR Body Mass Index 35.3 02/21/2019 3:26 PM CORPORATE WELLNESS COORDINATOR documented in this encounter Patient Instructions * Patient Instructions* Neena Alfaro - 02/21/2019 2:15 PM CORPORATE WELLNESS COORDINATOR Images from the original note were not included. Patient Education Patient Education Atherosclerosis The Basics Written by the doctors and editors at [facility] What is atherosclerosis???--??Atherosclerosis is a condition [...] process is complete. This topic retrieved from [employer] on: Oct 24, 2018. Topic 01569 Version 7.0 Release: 27.3.2 - C27.227 ?2019??[employer] and/or its affiliates.??All rights reserved. figure 1: Carotid artery disease In people with carotid artery disease, fatty deposits called plaques build up inside the artery zamora. These plaques can break open and cause blood clots to form, and that can lead to stroke. Graphic 89587 Version 2.0 figure 2: Heart attack Plaques [...] so it gets damaged or dies. Graphic 61014 Version 6.0 figure 3: Peripheral artery disease Graphic 05368 Version 6.0 figure 4: Atherosclerosis Atherosclerosis is a condition in which fatty deposits called plaques build up in the lining of the blood vessels. As plaques get bigger, the blood vessels get narrow. This means the blood vessels cannot carry as much blood as before. Graphic 57838 Version 1.0 Consumer Information Use and Disclaimer [...] that is right for you.The use of [employer] content is governed by the [employer] Terms of Use. ??2019 [employer] All rights reserved. Copyright ?2019??[employer] and/or its affiliates.??All rights reserved. ORATE WELLNESS COORDINATOR documented in this encounter Progress Notes * [...] Provider: Cecilio Aldrich PCP: RICK GLEZ MD ORATE WELLNESS COORDINATOR documented in this encounter Plan of Treatment Not on file documented as of this encounter Visit Diagnoses Diagnosis Ulcer of lower limb, left, limited to breakdown of skin (CMS/HCC [facility]/HCC)- Primary Peripheral vascular disease (CMS/HCC) Peripheral vascular disease, unspecified documented in this encounter Care Teams Correspondence Analyst Relationship Specialty Start Date End Date Rick Glez MD [address] [place] [address] PCP - General INTERNAL MEDICINE 02/10/19 05/09/19 Damon Swanson MD INTERNAL MEDICINE 12/10/18 documented as of this encounter
--- OUTSIDE RECORDS SUMMARY | 2024-02-27 03:27 | XMS_ITS | Encounter Summary ---
Author Organization [facility] Address [address] [place] [address]. [place] [address] [place] [address] Care Team Providers Care Composing Machine Operator/Tender Name Role Phone Cecliio Aldrich MD Primary Care Provider [phone] Damon Swanson MD Unavailable [phone] Reason for Referral * Imaging (Routine) [...] Expiration Date Visits Re quested Visits Authorized [id number] Closed 12/28/2018 01/27/2020 1 1 Reason for [...] Expiration Date Visits Re quested Visits Authorized [id number] Closed 12/28/2018 01/27/2020 1 1 Encounter Details Date Type Department Care Team (Latest Contact Info) Description 01/08/2019 9:57 AM CDT - 01/08/2019 11:59 PM CDT Hospital Encounter [facility] [place] [address] Saranya Pichardo NP Discharge Disposition: Home or [...] and inflammation of bilateral lower extremity (CODE) ([facility]/HCC),Diabetic leg ulcer ([facility] HHS/HCC) Take 1 capsule (300 [...] and inflammation of bilateral lower extremity (CODE) ([facility] HHS/HCC) Diabetic leg ulcer ([facility] HHS/HCC) documented in this encounter Results * [...] and inflammation of bilateral lower extremity (CODE) ([facility]) Diabetic leg ulcer ([facility]) Type II or unspecified type diabetes mellitus with other specified manifestations, not stated as uncontrolled documented in this encounter Care Teams Composing Machine Operator/Tender Relationship Specialty Start Date End Date Cecilio Aldrich MD [address] [place] [address] PCP - General YOGA COORDINATOR 12/10/18 02/09/19 Damon Swanson MD [address] [place] [address] INTERNAL MEDICINE 12/10/18 documented as of this encounter
--- OUTSIDE RECORDS SUMMARY | 2024-02-27 03:27 | XMS_ITS | Encounter Summary ---
Author Organization [facility] Address [address] [place] [address]. [place], [place] [address] [place] [address] Care Team Providers Care Precision Filer Hand Name Role Phone Cecilio Aldrich MD Primary Care Provider [phone] Damon Swanson MD Unavailable [phone] Reason for Visit * Reason Comments Wound Encounter Details Date Type Department Care Team (Late st Contact Info) Description 12/31/2018 8:30 AM CDT Home Care Visit [facility] Care [address] [place] [address] Adele Zamora RN [phone] (Work) SN HOME VISIT Social History [...] Visit Type -SN - Home Visit Discipline -Penitentiary Problems Problem Description Start Date Status Goals Interve ntions Discharge Planning Disciplines: Penitentiary Discharge Planning 12/19/2018 Active 1 goal linked to scheduled/docume nted intervention 1 goal intervention scheduled/documen monalisa in this visit Care Coordination Disciplines: Penitentiary Management and coordination of patient care 12/19/2018 Active 1 goal linked to scheduled/docume nted intervention 2 goal interventions scheduled/documen monalisa in this visit Homebound Status Disciplines: Penitentiary Patient meets requirements of homebound status as evidenced by 02/1412/19/2018 Active 1 goal linked to scheduled/docume nted intervention 1 problem intervention scheduled/documen monalisa in this visit A Plan for Next Visit Disciplines: Penitentiary Plan for next visit 12/19/2018 Active 1 goal linked to scheduled/docume nted intervention 1 goal intervention scheduled/documen monalisa in this visit Home Safety Disciplines: Penitentiary Management and evaluation of patient's home environment 12/19/2018 Active 1 goal linked to scheduled/docume nted intervention 3 goal interventions scheduled/documen monalisa in this visit Medications Disciplines: Penitentiary Management of home medications 12/19/2018 Active 1 goal linked to scheduled/docume nted intervention 3 goal interventions scheduled/documen monalisa in this visit Blood Glucose Monitoring Disciplines: Penitentiary Skilled assessment and evaluation of blood glucose monitoring 12/19/2018 Active 1 goal linked to scheduled/docume nted intervention 2 goal interventions scheduled/documen monalisa in this visit Management and Evaluation of the Care Plan Disciplines: Penitentiary SN for management and evaluation of skilled services 12/19/2018 Active 1 goal linked to scheduled/docume nted intervention 1 goal intervention scheduled/documen monalisa in this visit Home Health Aide Supervisory Visit Disciplines: Penitentiary Supervision of HH Aide, TOOL COORDINATOR or NICHOLS 12/19/2018 Active 1 goal linked to scheduled/docume nted intervention 1 goal intervention scheduled/documen monalisa in this visit Nutritional concerns Disciplines: Penitentiary Inadequate/imbala nced nutritional concerns 12/19/2018 Active 1 goal linked to scheduled/docume nted intervention 1 goal intervention scheduled/documen monalisa in this visit Pulse Oximetry Disciplines: Penitentiary Skilled assessment and monitoring of O2 saturations. 12/19/2018 Active 1 goal linked to scheduled/docume nted intervention 1 goal intervention scheduled/documen monalisa in this visit Wound Care Disciplines: Penitentiary Alteration in skin integrity 12/19/2018 Active 1 [...] Care Plan Met This Shift No SN PERL PROGRAMMER Supervision Description: RN to supervise Home [...] . Problem:Home Health Aide Supervisory Visit Goal:SN PERL PROGRAMMER Supervision Completed Instruct diet Description: Instruct [...] Completed documented in this encounter Care Teams Precision Filer Hand Relationship Specialty Start Date End Date Cecilio Aldrich MD [address] [place] [address] PCP - General BAND SALVAGER 12/10/18 02/09/19 Damon Swanson MD [address] [place] [address] INTERNAL MEDICINE 12/10/18 documented as of this encounter
--- OUTSIDE RECORDS SUMMARY | 2024-02-27 03:27 | XMS_ITS | Encounter Summary ---
Author Organization [facility] Address [address] [place] [address]. [place] [address] [place] [address] Care Team Providers Care Fire Eater Name Role Phone Cecilio Aldrich MD Primary Care Provider [phone] Damon Swanson MD Unavailable Encounter Details Date Type Department Care Team (Late st Contact Info) Description 01/02/2019 8:00 AM CDT Home Care Visit [facility] Care [address] [place] [address] [place] [address] Deneen Wilkes, ON[address] [place] [address] NICHOLS HOME VISIT Social History Tobacco Use [...] changes or concerns reported to supervising therapist, dependency case manager and or provider. Therapies Vitals [...] each isit and report any changes to dependency case manager and/or supervising OT. Problem:Therapies Medications [...] Understanding verbalized. Therapies - Vitals Description: OT, dependency case manager and/or physician to be contacted [...] time. documented in this encounter Care Teams Fire Eater Relationship Specialty Start Date End Date Cecilio Aldrich MD [address] [place] [address] PCP - General CHANNEL DEVELOPMENT MANAGER 12/10/18 02/09/19 Damon Swanson MD [address] [place] [address] INTERNAL MEDICINE 12/10/18 documented as of this encounter
--- OUTSIDE RECORDS SUMMARY | 2024-02-27 03:27 | XMS_ITS | Encounter Summary ---
Author Organization [facility] Address [address] [place] [address]. [place] [address] [place] [address] Care Team Providers Care Tie Binder Name Role Phone Cecilio Aldrich MD Primary Care Provider [phone] Damon Swanson MD Unavailable [phone] Encounter Details Date Type Department Care Team (Late st Contact Info) Description 12/24/2018 Home Care Visit [facility] Care [address] [place], [place] [id number] Adele Zamora RN [phone] (Work) CASE COMMUNICATION Social History Tobacco [...] on filedocumented in this encounter Care Teams Tie Binder Relationship Specialty Start Date End Date Cecilio Aldrich MD [address] [place] [address] PCP - General CARROTING MACHINE OFFBEARER 12/10/18 02/09/19 Damon Swanson MD [address] [place] [address] INTERNAL MEDICINE 12/10/18 documented as of this encounter
--- OUTSIDE RECORDS SUMMARY | 2024-02-27 03:27 | XMS_ITS | Encounter Summary ---
Author Organization [facility] Address [address] [place] [address]. [place] [address] [place] [address] Care Team Providers Care Abstract Searcher Name Role Phone Cecilio Aldrich MD Primary Care Provider [phone] Damon Swanson MD Unavailable [phone] Encounter Details Date Type Department Care Team (Late st Contact Info) Description 01/11/2019 Home Care Visit [facility] Care [address] [place] [address] [place] [address] Parent, Mariaa Flores RN [phone] (Work) SN OASIS TRANSFER W/DC Social [...] -SN - OASIS Trans bubba w/DC Discipline -Fpc Problems Problem Description Start Date Status Goals Interve ntions Discharge Planning Disciplines: Fpc Discharge Planning 12/19/2018 Active 1 goal linked to scheduled/docume nted intervention 1 goal intervention scheduled/documen monalisa in this visit Care Coordination Disciplines: Fpc Management and coordination of patient care 12/19/2018 Active 1 goal linked to scheduled/docume nted intervention 2 goal interventions scheduled/documen monalisa in this visit Homebound Status Disciplines: Fpc Patient meets requirements of homebound status as evidenced by 12/5 12/19/2018 Active 1 goal linked to scheduled/docume nted intervention 1 problem intervention scheduled/documen monalisa in this visit A Plan for Next Visit Disciplines: Fpc Plan for next visit 12/19/2018 Active 1 goal linked to scheduled/docume nted intervention 1 goal intervention scheduled/documen monalisa in this visit Home Safety Disciplines: Fpc Management and evaluation of patient's home environment 12/19/2018 Active 1 goal linked to scheduled/docume nted intervention 3 goal interventions scheduled/documen monalisa in this visit Medications Disciplines: Fpc Management of home medications 12/19/2018 Active 1 goal linked to scheduled/docume nted intervention 3 goal interventions scheduled/documen monalisa in this visit Blood Glucose Monitoring Disciplines: Fpc Skilled assessment and evaluation of blood glucose monitoring 12/19/2018 Active 1 goal linked to scheduled/docume nted intervention 2 goal interventions scheduled/documen monalisa in this visit Management and Evaluation of the Care Plan Disciplines: Fpc SN for management and evaluation of skilled services 12/19/2018 Active 1 goal linked to scheduled/docume nted intervention 1 goal intervention scheduled/documen monalisa in this visit Home Health Aide Supervisory Visit Disciplines: Fpc Supervision of HH Aide, BULK SEALER or NICHOLS 12/19/2018 Active 1 goal linked to scheduled/docume nted intervention 1 goal intervention scheduled/documen monalisa in this visit Nutritional concerns Disciplines: Fpc Inadequate/imbala nced nutritional concerns 12/19/2018 Active 1 goal linked to scheduled/docume nted intervention 1 goal intervention scheduled/documen monalisa in this visit Pulse Oximetry Disciplines: Fpc Skilled assessment and monitoring of O2 saturations. 12/19/2018 Active 1 goal linked to scheduled/docume nted intervention 1 goal intervention scheduled/documen monalisa in this visit Wound Care Disciplines: Fpc 01/09/2019 Active 1 goal linked to scheduled/docume [...] Care Plan Adequate for Discharge Yes SN ASSEMBLER CHASSIS Supervision Description: RN to supervise Home Health [...] . Problem:Home Health Aide Supervisory Visit Goal:SN ASSEMBLER CHASSIS Supervision Completed Instruct diet Description: Instruct on [...] Completed documented in this encounter Care Teams Abstract Searcher Relationship Specialty Start Date End Date Cecilio Aldrich MD [address] [place] [address] PCP - General MASTER CONTROL SUPERVISOR 12/10/18 02/09/19 Damon Swanson MD [address] [place] [address] INTERNAL MEDICINE 12/10/18 documented as of this encounter
--- OUTSIDE RECORDS SUMMARY | 2024-02-27 03:27 | XMS_ITS | Encounter Summary ---
Author Organization [facility] Address [address] [place] [address]. [place], [place] [address] [place] [address] Care Team Providers Care Video Library Assistant Name Role Phone Cecilio Aldrich MD Primary Care Provider [phone] Damon Swanson MD Unavailable [phone] Encounter Details Date Type Department Care Team (Latest Contact Info) Description 12/28/2018 1:30 PM CDT Home Care Visit [address] [place] [address] Daniela Harrington, CATCH BASIN CLEANER CATCH BASIN CLEANER HH/HOSPICE TELEPHONE ENCOUNTER/VISIT Social History Tobacco Use [...] Description Start Date Status Goals Interve ntions CATCH BASIN CLEANER Community Resource Planning Disciplines: Medical Social Work Assist with community resources 12/26/2018 Active 1 goal linked to scheduled/documen monalisa intervention 1 goal intervention scheduled/document ed in this visit Goals Goal Associated Problem Outcome Goal Met? Visit Notes CATCH BASIN CLEANER Community Resource Planning Description: Patient will move to assisted living/nursing facility of choice for so that level of care needs are better met by 01/22/19. CATCH BASIN CLEANER Community Resource Planning No Interventions Intervention Associated Problem/Goal Status Variance Visit Notes CATCH BASIN CLEANER community resource planning Description: CATCH BASIN CLEANER to assist with community resource planning related to more supportive living arrangement. Patient reports that she lives with her granddaughter, but she does not provide any assistance other than letting patient sleep on the couch and occasionally provides some food for patient. Patient reports that she is interested in moving to an assisted living/correction. Patient reports preference for [facility] [place] and [facility] for assisted living and did not have a preference for nursing facility. CATCH BASIN CLEANER spoke with Sylvia Reynaga RN case manager who confirms that due to patient's inability to transfer independently, patient would be more appropriate for correction care over RESIDENTIAL care. CATCH BASIN CLEANER to contact area nursing facilities for bed availability to obtain fax number to insure patient's information if forwarded to those facilities for admission review. Problem:CATCH BASIN CLEANER Community Resource Planning Goal:CATCH BASIN CLEANER Community Resource Planning Scheduled documented in this encounter Care Teams Video Library Assistant Relationship Specialty Start Date End Date Cceilio Aldrich MD [address] [place] [address] PCP - General COLLEGE SCOUTING COORDINATOR 12/10/18 02/09/19 Damon Swanson MD [address] [place] [address] INTERNAL MEDICINE 12/10/18 documented as of this encounter
--- OUTSIDE RECORDS SUMMARY | 2024-02-27 03:28 | XMS_ITS | Encounter Summary ---
Author Organization [facility] Address [address] [place] [address]. [place] [address] [place] [address] Care Team Providers Care Surgical Brace Maker Name Role Phone Zeke Puente MD Primary Care Provider [phone] Chris Tapia MD Primary Care Provider [phone] Encounter Details Date Type Department Care Team (Late st Contact Info) Description 03/23/2010 Emergency [facility] [place] [address] Liya Michele MD Social History Tobacco Use [...] bronchitis documented in this encounter Care Teams Surgical Brace Maker Relationship Specialty Start Date End Date Zeke Puente MD [address] [address] PCP - General 06/13/16 12/09/18 Chris Tapia MD [address] [address] PCP - General 03/23/10 06/12/16 documented as of this encounter
--- OUTSIDE RECORDS SUMMARY | 2024-02-27 03:28 | XMS_ITS | Encounter Summary ---
Author Organization [facility] Address [address] [place] [address]. [place] [address] [place] [address] Care Team Providers Care Television Production Clerk Name Role Phone Zeke Puente MD Primary Care Provider [phone] Chris Tapia MD Primary Care Provider [phone] Encounter Details Date Type Department Care Team (Late st Contact Info) Description 02/10/2009 Abstract [facility] [place] [address] Bess Gonzalez MD [address] [place] [address] [address] Social History Tobacco Use Types [...] on filedocumented in this encounter Care Teams Television Production Clerk Relationship Specialty Start Date End Date Zeke Puente MD [address] [place] [address] PCP - General 06/13/16 12/09/18 Chris Tapia MD [address] [place] [address] PCP - General 03/23/10 06/12/16 documented as of this encounter
--- OUTSIDE RECORDS SUMMARY | 2024-02-27 03:28 | XMS_ITS | Encounter Summary ---
Author Organization [facility] Address [address] [place] [address]. [place] [address] [place] [address] Care Team Providers Care Laundry Operator Wash Room Name Role Phone Zeke Puente MD Primary Care Provider [phone] Encounter Details Date Type Department Care Team (Late st Contact Info) Description 06/13/2016 Abstract [facility] [address] [place], [place] [id number] Jennifer Gil, [facility] [address] [facility] [address] [place] [address] Social History Tobacco Use Types Packs/Day Years [...] - 99 mg/dL 06/13/2016 5:20 PM CDT [facility] Comment: TESTING PERFORMED AT [facility] [address] [place] [address] ??[id number] PATRICIA STEEN M.D., BODY AND FRAME MAN BUN WHOLE BLOOD 15 8 - 23 mg/dL 06/13/2016 5:20 PM CDT [facility] CREATININE WHOLE BLOOD 0.8 0.60 - 1.10 mg/dL 06/13/2016 5:20 PM CDT [facility] SODIUM WHOLE BLOOD 136 136 - 145 mmol/L 06/13/2016 5:20 PM CDT [facility] POTASSIUM WHOLE BLOOD 3.5 3.5 - 5.1 mmol/L 06/13/2016 5:20 PM CDT [facility] CHLORIDE WHOLE BLOOD 91(L) 98 - 107 mmol/L 06/13/2016 5:20 PM CDT [facility] POC CO2 WHOLE BLOOD 34(H) 22 - 29 mmol/L 06/13/2016 5:20 PM CDT [facility] CA IONIZED WH BLOOD 1.01(L) 1.12 - 1.32 mmol/L 06/13/2016 5:20 PM CDT [facility] ANION GAP 14.5 8 - 20 MMOL/L 06/13/2016 5:20 PM CDT [facility] EGFR NON-AFR. AMER. >60 >60 mL/min/1.7 [facility] 06/13/2016 5:20 PM T [facility] EGFR AFR. AMER. >60 >60 mL/min/1.7 [facility] 06/13/2016 5:20 PM T [facility] Comment: NOTE: eGFR is not calculated for patients <18 years of age. This is an estimated GFR (CKD EPI) and should not be used for calculating drug doses. 06/13/2016 5:06 PM CDT 06/13/2016 5:10 PM CDT us Generic Conversion Md [facility] Final R esult [facility] [address] [place] [address], * (ABNORMAL) CBC, AUTO, NO DIFF (06/13/2016 5:06 PM CDT) WBC 3.4(L) 4.8 - 10.8 x10'3/uL 06/13/2016 5:18 PM CDT [facility] Comment: TESTING PERFORMED AT [address] ??[id number] PATRICIA STEEN M.D., BODY AND FRAME MAN RBC 3.51(L) 4.20 - 5.40 x10'6/uL 06/13/2016 5:18 PM CDT [facility] HGB 11.0(L) 12.0 - 16.0 G/DL 06/13/2016 5:18 PM CDT [facility] HCT 31.4(L) 38.0 - 48.0 % 06/13/2016 5:18 PM CDT [facility] MCV 89.5 81.0 - 99.0 FL 06/13/2016 5:18 PM CDT [facility] MCH 31.3(H) 27.0 - 31.0 PG 06/13/2016 5:18 PM CDT [facility] MCHC 35.0 32.0 - 36.0 G/DL 06/13/2016 5:18 PM CDT [facility] RDW 13.9 11.5 - 14.5 % 06/13/2016 5:18 PM CDT [facility] PLT 198 130 - 400 x10'3/uL 06/13/2016 5:18 PM CDT [facility] MPV 9.0(L) 9.3 - 12.2 FL 06/13/2016 5:18 PM CDT [facility] 06/13/2016 5:06 PM CDT 06/13/2016 5:10 PM CDT us Generic Conversion Md [facility] Final R esult [facility] [address] [place] [address], [place] [phone] documented in this encounter Visit Diagnoses Diagnosis Abdominal hernia without obstruction or gangrene Hernia of unspecified site of abdominal cavity without mention of obstruction or gangrene documented in this encounter Care Teams Laundry Operator Wash Room Relationship Specialty Start Date End Date Zeke Puente MD [address] [place] [address] PCP - General 06/13/16 12/09/18 documented as of this encounter
--- OUTSIDE RECORDS SUMMARY | 2024-02-27 03:28 | XMS_ITS | Encounter Summary ---
Author Organization [facility] Address [address] [place] [address]. [place] [address] [place] [address] Care Team Providers Care Seater Grinder Name Role Phone Cecilio Aldrich MD Primary Care Provider [phone] Damon Swanson MD Unavailable [phone] Encounter Details Date Type Department Care Team (Late st Contact Info) Description 12/10/2018 8:15 AM CDT Office Visit [facility] [address] [place] [address] Babar Sullivan MD Social History Tobacco Use [...] - 99 mg/dL 12/10/2018 12:06 PM CDT [facility] ORDERS INTERFACE 12/10/2018 10:2 8 AM CDT us Babar Sullivan MD POCT ORDERABLES - DEVICE Final R esult [facility] ORDERS INTERFACE US documented in this encounter Visit Diagnoses Diagnosis Diabetic leg ulcer (CMS/[facility] HHS/[facility])- Primary Type II or unspecified type diabetes mellitus with other specified manifestations, not stated as uncontrolled documented in this encounter Care Teams Seater Grinder Relationship Specialty Start Date End Date Cecilio Aldrich MD [address] [place] [address] PCP - General HAND POTTER 12/10/18 02/09/19 Damon Swanson MD [address] [place] [address] INTERNAL MEDICINE 12/10/18 documented as of this encounter
--- OUTSIDE RECORDS SUMMARY | 2024-02-27 03:28 | XMS_ITS | Encounter Summary ---
Author Organization [facility] Address [address] [place] [address]. [place] [address] [place] [address] Care Team Providers Care Pie Filler Name Role Phone Cecilio Aldrich MD Primary Care Provider [phone] Damon Swanson MD Unavailable [phone] Reason for Visit * Reason Comments Hyperglycemia Encounter Details Date Type Department Care Team (Late st Contact Info) Description 12/10/2018 11:17 AM CDT - 12/10/2018 7:37 PM CDT Emergency [facility] Emergency Room [place], [place] [id number] Jose Roldan MD [address] [id number] Hyperglycemia Discharge Disposition: Home or Self Care [...] Care Everywhere. * Hyperglycemia Discharge Instructions, Adult (Israeli) documented in this encounter Medications at Time [...] Blood sugar 359. STEPHANIE WHATLEY RN * Jsoe Roldan MD - 12/10/2018 12:43 PM CDT [...] is a patient of Dr. Aldrich in . They have no diabetic medications on record for her, nor does [facility] [place] [facility] [place]. The patient is willing to restart metformin at 500mg BID. We will plan for this and PCP followup. Clinical Impression Hyperglycemia (Primary) Disposition: Discharge Jose Roldan MD 12/13/18 1959 * Preeti Mejia RN - 12/10/2018 12:18 PM CDT Need urine Preeti Mejia RN * URBAN Davis - 12/10/2018 11:27 AM CDT [place] EMERGENCY DEPARTMENT ENCOUNTER Medical Screening Examination [...] - 99 mg/dL 12/10/2018 6:57 PM CDT [facility] ORDERS INTERFACE 12/10/2018 6:55 PM CDT Jose Roldan MD POCT ORDERABLES - DEVICE Final Result Performing Organization Address [facility] de Phone Number [facility] ORDERS INTERFACE US * (ABNORMAL) POCT glucose (12/10/2018 5:35 PM CDT) GLUCOSE POC 359(H) 70 - 99 mg/dL 12/10/2018 6:25 PM CDT [facility] ORDERS INTERFACE 12/10/2018 5:35 PM CDT Jose Roldan MD POCT ORDERABLES - DEVICE Final Result Performing Organization Address [facility] de Phone Number [facility] ORDERS INTERFACE US * (ABNORMAL) POCT glucose (12/10/2018 4:36 PM CDT) GLUCOSE POC 336(H) 70 - 99 mg/dL 12/10/2018 4:39 PM CDT [facility] ORDERS INTERFACE 12/10/2018 4:36 PM CDT Jose Roldan MD POCT ORDERABLES - DEVICE Final Result Performing Organization Address [facility] Co de Phone Number [facility] ORDERS INTERFACE US * (ABNORMAL) POCT glucose (12/10/2018 4:36 PM CDT) GLUCOSE WHOLE BLOOD 336(A) 70 - 100 mg/dL [facility] Jose Roldan MD POCT ORDERABLES - DEVICE Final Result Performing Organization Address [facility]/ZIP Co de Phone Number [facility] [address] [place] [address], [place] [phone] * (ABNORMAL) POCT glucose (12/10/2018 3:52 PM CDT) GLUCOSE WHOLE BLOOD 377(A) 70 - 100 mg/dL [facility] Jose Roldan MD POCT ORDERABLES - DEVICE Final Result Performing Organization Address [facility] Co de Phone Number [facility] [address] [place] [address], [place] [phone] * (ABNORMAL) POCT glucose (12/10/2018 3:49 PM CDT) GLUCOSE POC 337(H) 70 - 99 mg/dL 12/10/2018 4:05 PM CDT [facility] ORDERS INTERFACE 12/10/2018 3:49 PM CDT Jose Roldan MD POCT ORDERABLES - DEVICE Final Result Performing Organization Address [facility]/ZIP Co de Phone Number [facility] ORDERS INTERFACE US * (ABNORMAL) POCT glucose (12/10/2018 2:16 PM CDT) GLUCOSE POC 433(HH) 70 - 99 mg/dL 12/10/2018 2:18 PM CDT [facility] ORDERS INTERFACE 12/10/2018 2:16 PM CDT Jose Roldan MD POCT ORDERABLES - DEVICE Final Result [facility] ORDERS INTERFACE US * (ABNORMAL) POCT glucose (12/10/2018 2:16 PM CDT) GLUCOSE WHOLE BLOOD 433(A) 70 - 100 mg/dL [facility] Jose Roldan MD POCT ORDERABLES - DEVICE Final Result Performing Organization Address [facility] Co de Phone Number [facility] [address] [place] [address], [place] [phone] * (ABNORMAL) LDH, LACTATE DEHYDROGENASE (12/10/2018 11:32 AM CDT) Pathologist [facility] LDH 302(H) 84 - 246 UNITS/L 12/10/2018 1:31 PM CDT [facility] 12/10/2018 11:3 2 AM CDT Chris Burns CONFERENCE TRANSLATOR-C LABORATORY Final Resu lt Performing Organization Address [facility] Co de Phone Number [facility] [address] [place] [address], [place] [phone] * (ABNORMAL) COMPREHENSIVE METABOLIC PANEL (12/10/2018 11:32 AM CDT) Pathologist [facility] GLUCOSE 463(HH) 70 - 99 MG/DL 12/10/2018 1:31 PM CDT [facility] Comment:KS CALLED CRITICAL R ESULTS AT [id number] TO AND READ BACK BY NERISSA MORALES BUN 26(H) 7 - 18 MG/DL 12/10/2018 1:31 PM CDT [facility] CREATININE S/P/B 1.21(H) 0.55 - 1.02 MG/DL 12/10/2018 1:31 PM CDT [facility] SODIUM S/P/B 131(L) 136 - 145 MMOL/L 12/10/2018 1:31 PM CDT [facility] POTASSIUM S/P/B 3.9 3.5 - 5.1 MMOL/L 12/10/2018 1:31 PM [facility] CHLORIDE S/P/B 96(L) 100 - 108 MMOL/L 12/10/2018 1:31 PM [facility] CO2 29.1 21 - 32 MMOL/L 12/10/2018 1:31 PM [facility] CALCIUM S/P/B 8.7 8.5 - 10.1 MG/DL 12/10/2018 1:31 PM T [facility] BILIRUBIN TOTAL S/P/B 0.6 0.2 - 1.2 MG/DL 12/10/2018 1:31 PM [facility] TOTAL PROTEIN S/P/B 7.9 6.4 - 8.2 G/DL 12/10/2018 1:31 PM [facility] ALBUMIN S/P/B 3.3(L) 3.4 - 5.0 G/DL 12/10/2018 1:31 PM [facility] AST 26 15 - 37 U/L 12/10/2018 1:31 PM [facility] ALT 31 14 - 55 U/L 12/10/2018 1:31 PM [facility] ALKALINE PHOSPHATASE S/P/B 117 50 - 136 U/L 12/10/2018 1:31 PM [facility] ANION GAP 5.9 5 - 15 MMOL/L 12/10/2018 1:31 PM T [facility] BUN CREATININE RATIO 21.5 6 - 26 12/10/2018 1:31 PM [facility] A/G RATIO 0.7(L) 1.0 - 2.0 RATIO 12/10/2018 1:31 PM [facility] EGFR NON-AFR. AMER. 48(L) >90 ML/MIN/1.7 3 M2 12/10/2018 1:31 PM CDT [facility] EGFR AFR. AMER. 55(L) >90 ML/MIN/1.7 3 M2 12/10/2018 1:31 PM CDT [facility] Comment: NOTE: eGFR is not calculated for patients <18 years of age. This is an estimated GFR (CKD EPI) and should not be used for calculating drug doses. 12/10/2018 11:3 2 AM CDT us Chris Burns CONFERENCE TRANSLATOR-C LAB[facility] Final Resu lt [facility] [address] [place] [address], [place] [phone] * (ABNORMAL) CBC W/DIFF AUTOMATED (12/10/2018 11:32 AM CDT) WBC 4.8 4.5 - 11.0 x10'3/uL 12/10/2018 11:56 AM CDT [facility] RBC 3.35(L) 4.20 - 5.40 x10'6/uL 12/10/2018 11:56 AM CDT [facility] HGB 10.0(L) 12.0 - 16.0 G/DL 12/10/2018 11:56 AM CDT [facility] HCT 29.9(L) 38.0 - 48.0 % 12/10/2018 11:56 AM CDT [facility] MCV 89.3 81.0 - 99.0 FL 12/10/2018 11:56 AM CDT [facility] MCH 29.9 27.0 - 31.0 PG 12/10/2018 11:56 AM CDT [facility] MCHC 33.4 32.0 - 36.0 G/DL 12/10/2018 11:56 AM CDT [facility] RDW 13.4 11.5 - 14.5 % 12/10/2018 11:56 AM CDT [facility] PLT 239 130 - 400 x10'3/uL 12/10/2018 11:56 AM [facility] MPV 10.7 9.3 - 12.2 FL 12/10/2018 11:56 AM T [facility] DIFFERENTIAL TYPE AUTOMATED DIFFERENTIAL 12/10/2018 11:56 AM T [facility] NEUTROPHILS % 66.5 % 12/10/2018 11:56 AM T [facility] LYMPHOCYTES % 23.5 % 12/10/2018 11:56 AM T [facility] MONOCYTES % 7.5 % 12/10/2018 11:56 AM T [facility] EOSINOPHILS 1.3 % 12/10/2018 11:56 AM T [facility] BASOPHILS 0.8 % 12/10/2018 11:56 AM T [facility] IMMATURE GRANS % 0.4 % 12/11/19 19 11:56 AM [facility] ABS. NEUTROPHILS TOTAL 3.17 1.80 - 7.70 x10'3/uL 12/10/2018 11:56 AM T [facility] ABS. LYMPHOCYTES 1.12 1.00 - 4.80 x10'3/uL 12/10/2018 11:56 AM CDT [facility] ABS. MONOCYTES 0.36 0.24 - 0.86 x10'3/uL 12/10/2018 11:56 AM [facility] ABS. EOSINOPHILS 0.06 0.04 - 0.36 x10'3/uL 12/10/2018 11:56 AM [facility] ABS. BASOPHILS 0.04 0.01 - 0.08 x10'3/uL 12/10/2018 11:56 AM CDT [facility] ABS. IMMATURE GRANULOCYTES 0.02 0.00 - 0.49 x10'3/uL 12/10/2018 11:56 AM CDT [facility] 12/10/2018 11:3 2 AM CDT Chris Burns CONFERENCE TRANSLATOR-C LABORATORY Final Resu lt Performing Organization Address [facility] Co de Phone Number [facility] [address] [place] [address], * (ABNORMAL) POCT glucose (12/10/2018 11:19 AM CDT) GLUCOSE WHOLE BLOOD >500 70 - 100 mg/dL [facility] Jose Roldan MD POCT ORDERABLES - DEVICE Final Result Performing Organization Address [facility] de Phone Number [facility] [address] [place] [address], * (ABNORMAL) POCT glucose (12/10/2018 11:13 AM CDT) GLUCOSE POC >500(HH) 70 - 99 mg/dL 12/10/2018 11:17 AM CDT [facility] ORDERS INTERFACE Comment:Notified RN 12/10/2018 11:1 3 AM CDT Attending Physician Emergency MD POCT ORDERABLES - DEVICE Final Result Performing Organization Address [facility] Co de Phone Number [facility] ORDERS INTERFACE US documented in [...] RN) documented in this encounter Care Teams Pie Filler Relationship Specialty Start Date End Date Cecilio Aldrich MD [address] [place] [address] PCP - General CLASSIFICATION ANALYST 12/10/18 02/09/19 Damon Swanson MD [address] [place] [address] INTERNAL MEDICINE 12/10/18 documented as of this encounter
--- OUTSIDE RECORDS SUMMARY | 2024-02-27 03:28 | XMS_ITS | Encounter Summary ---
Author Organization [facility] Address [address] [place] [address]. [place] [address] [place] [address] Care Team Providers Care Bonding Machine Operator Name Role Phone Cecilio Aldrich MD Primary Care Provider [phone] Damon Swanson MD Unavailable [phone] Encounter Details Date Type Department Care Team (Late st Contact Info) Description 12/18/2018 12:30 PM CDT Home Care Visit [address] [place] [address] Yazmin Rodriguez HOME VISIT Social History Tobacco [...] on filedocumented in this encounter Care Teams Bonding Machine Operator Relationship Specialty Start Date End Date Cecilio Aldrich MD [address] [place] [address] PCP - General CEO ZIFF DAVIS 12/10/18 02/09/19 Damon Swanson MD [address] [place] [address] INTERNAL MEDICINE 12/10/18 documented as of this encounter
--- OUTSIDE RECORDS SUMMARY | 2024-02-27 03:28 | XMS_ITS | Encounter Summary ---
Author Organization [facility] Address [address] [place] [address]. [place] [address] [place] [address] Care Team Providers Care Certification And Selection Specialist Name Role Phone Cecilio Aldrich MD Primary Care Provider [phone] Damon Swanson MD Unavailable [phone] Encounter Details Date Type Department Care Team (Late st Contact Info) Description 12/17/2018 Plan of Care Documentation [address] [place] [address] [place] [address] Social History Tobacco Use Types Packs/Day Years [...] on filedocumented in this encounter Care Teams Certification And Selection Specialist Relationship Specialty Start Date End Date Cecilio Aldrich MD [address] [place] [address] PCP - General INFRASTRUCTURE ARCHITECT 12/10/18 02/09/19 Damon Swanson MD [address] [place] [address] INTERNAL MEDICINE 12/10/18 documented as of this encounter
--- OUTSIDE RECORDS SUMMARY | 2024-02-27 03:28 | XMS_ITS | Encounter Summary ---
Author Organization [facility] Address [address] [place] [address]. [place], [place] [address] [place] [address] Care Team Providers Care Manager Heart Name Role Phone Zeke Puente MD Primary Care Provider [phone] Encounter Details Date Type Department Care Team (Late st Contact Info) Description 2017 [place] [address] , Generic Conversion, Social History Tobacco Use [...] filedocumented in this encounter Care Teams Manager Heart Relationship Specialty Start Date End Date Zeke Puente MD [address] [place] [address] PCP - General 06/13/16 12/09/18 documented as of this encounter
--- OUTSIDE RECORDS SUMMARY | 2024-02-27 03:28 | XMS_ITS | Encounter Summary ---
Author Organization [facility] Address [address] [place] [address]. [place] [address] [place] [address] Care Team Providers Care Cardiovascular Disease Specialist Name Role Phone Zeke Puente MD Primary Care Provider [phone] Cecilio Aldrich MD Primary Care Provider Damon Swanson MD Unavailable [phone] Kimberley Durant MD Primary Care Provider [phone] Don Branham MD Primary Care Provider [phone] Encounter Details Date Type Department Care Team (Late st Contact Info) Description 07/31/2018 Scan [facility] [place] [address] Scanned, Documents Social History Tobacco [...] documented as of this encounter Care Teams Cardiovascular Disease Specialist Relationship Specialty Start Date End Date Zeke Puente MD [address] [place] [address] PCP - General 06/13/16 12/09/18 Cecilio Aldrich MD [address] [place] [address] PCP - General 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
--- OUTSIDE RECORDS SUMMARY | 2024-02-27 03:28 | XMS_ITS | Encounter Summary ---
Author Organization [facility] Address [address] [place] [address]. [place] [address] [place] [address] Care Team Providers Care Yarn Texture Machine Operator Name Role Phone Cecilio Aldrich MD Primary Care Provider [phone] Damon Swanson MD Unavailable [phone] Encounter Details Date Type Department Care Team (Late st Contact Info) Description 12/18/2018 Home Care Visit [facility] Home Care [address] [place] [address] [place] [address] Tressa Arias, OT [address] [place], [place] [address] CASE COMMUNICATION Social History Tobacco Use Types [...] on filedocumented in this encounter Care Teams Yarn Texture Machine Operator Relationship Specialty Start Date End Date Cecilio Aldrich MD [address] [place] [address] PCP - General BANQUET LINE COOK 12/10/18 02/09/19 Damon Swanson MD [address] [place] [address] INTERNAL MEDICINE 12/10/18 documented as of this encounter
--- OUTSIDE RECORDS SUMMARY | 2024-02-27 03:28 | XMS_ITS | Encounter Summary ---
Author Organization [facility] Address [address] [place] [address]. [place], [place] [id number] [place] [id number] Care Team Providers Care Supervisory Examiner Name Role Phone Cecilio Aldrich MD Primary Care Provider [phone] Damon Swanson MD Unavailable [phone] Encounter Details Date Type Department Care Team (Latest Contact Info) Description 12/17/2018 9:30 AM CDT Home Care Visit [address] [place] [address] [place] [address] Liseth Barreto, RN [phone] (Work) SN OASIS START OF CARE [...] -SN - OASIS Start of Care Discipline -Prison Problems Problem Description Start Date [...] Visit Disciplines: Prison Supervision of HH Aide, PACKERHEAD MACHINE OPERATOR or NICHOLS 12/19/2018 Active 1 goal linked to scheduled/docume nted intervention Nutritional concerns Disciplines: Prison Inadequate/imbala nced nutritional [...] of the Care Plan Progressing No SN SUPERINTENDENT SYSTEM OPERATION Supervision Description: RN to supervise Home Health [...] visit and collaborated with patient and patient quality control representative Care Coordination Description: Coordinate care with [...] Completed documented in this encounter Care Teams Supervisory Examiner Relationship Specialty Start Date End Date Cecilio Aldrich MD [address] [place] [address] PCP - General TARGETEER 12/10/18 02/09/19 Damon Swanson MD [address] [place] [address] INTERNAL MEDICINE 12/10/18 documented as of this encounter
[2024-02-27] MEDS: LEVOTHYROXINE SODIUM 100 MCG TABLET PO (05:23)
[2024-02-27] MEDS: CENTRAL LINE FLUSH 10 ML IV PUSH ×2 (05:24→21:47)
[2024-02-27 05:30] VITALS: BP 113/59; PULSE 69; RESP 16; TEMP 36.2; O2SAT 91
[2024-02-27 05:42] LABS: Basophils Absolute Auto 0.1 K/mm3 (0.0-0.1); Basophils Percent Auto 0.9 % (0.2-1.2); Eosinophils Absolute Auto 0.2 K/mm3 (0-0.3); Hematocrit 27.1 % (37.0-47.0); Hemoglobin 8.1 g/dL (12.0-15.0); Immature Granulocyte Absolute 0.02 K/mm3 (0.00-0.031); Immature Granulocyte Percent A 0.3 % (0-0.5); Lymphocytes Absolute Auto 0.97 K/mm3 (0.9-3.2); Lymphocytes Percent Auto 16.9 % (18.3-44.2); Mean Corpuscular HGB Conc 29.9 g/dl (32-36); Mean Corpuscular Hemoglobin 29.8 pg (26-34); Mean Corpuscular Volume 99.6 fl (80-100); Mean Platelet Volume 9.7 fl (7.4-10.4); Monocytes Absolute Auto 0.6 K/mm3 (0.1-0.6); Monocytes Percent Auto 9.6 % (2.6-8.5); Neutrophils Absolute Auto 3.9 K/mm3 (1.3-6.7); Neutrophils Percent Auto 68.3 % (45.5-73.1); Platelet Count Result 212 k/mm3 (150-375); Red Blood Count 2.72 M/mm3 (4.2-5.4); Red Cell Distribution Width 15.3 % (11.5-14.5); White Blood Count 5.8 K/mm3 (4.5-10.0)
[2024-02-27 05:53] LABS: Alanine Aminotransferase 11 U/L (6-35); Albumin Level 2.9 g/dL (3.5-5.1); Alkaline Phosphatase 59 U/L (38-126); Anion Gap 8 mmol/L (4-12); Aspartate Amino Transferase 28 U/L (14-36); Bilirubin,Total 0.5 mg/dL (0.2-1.3); Blood Urea Nitrogen 36 mg/dL (7-17); Calcium 7.6 mg/dL (8.4-10.2); Carbon Dioxide 24 mmol/L (22-30); Chloride 105 mmol/L (98-107); Estimated Glomerular Filt Rate 36; Glucose 193 mg/dL (65-110); Sodium 137 mmol/L (137-145)
[2024-02-27 06:31] LABS: Anisocytosis 1+; Platelet Estimate Adequate (Adequate); Schistocytes None Seen; Tear Drop Cells 1+
[2024-02-27 07:28] LABS: Glucose Point of Care 193 mg/dl (65-105)
--- NOTE | 2024-02-27 07:56 | PM.IMPN ---
Progress Note: A&P Assessment and Plan (1) Abnormal laboratory test: Code(s): R89.9 - Unspecified abnormal finding in specimens from other organs, systems and tissues Status: Acute Assessment and Plan: Per chart review, vanc trough was 43.9 at the facility resulting in patient being admitted for dose adjustments. Vanc trough 20.1 on am labs, continue to trend. Pharmacy to dose vanc when appropriate. Cr downtrended to 1.7 on am labs, started on IV fluids 75 ml/hr. If Cr continues to rise consider nephrology consult. Renal US: Normal kidneys without hydronephrosis. Bladder wall thickening likely related to persistent cystitis and exaggerated by incomplete distention with a Reyes catheter in place. 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 Urology evaluated patient and noted that given her significant/severe comorbidities I doubt that exhaustive evaluation or repair of a urethral fistula, if present, would be feasible. - She is being covered with dual coverage based on urine culture and gram positive coverage. Continue ertapenem, resumed vanc on 02/25, end date 03/26/24. (3) C. difficile diarrhea: Onset Date: 01/2024 Code(s): A04.72 - Enterocolitis due to Clostridium difficile, not specified as recurrent Status: Acute Assessment and Plan: 02/22: c dif positive - Continue dificid - Having soft formed stools, no signs of melena - Monitor for bloody bowel movements,chest pain,SOB or dizziness/lightheadedness (4) Iron deficiency anemia: Code(s): D50.9 - Iron deficiency anemia, unspecified Status: Acute Assessment and Plan: H/H 10.6/33.6. No signs of active bleeding. - Iron panel: Iron 16, TIBC 157, % sat 10 - B12 and folate WNL - Started on iron supplementation - Continue to monitor H/H (5) Type 2 diabetes mellitus: Code(s): E11.9 - Type 2 diabetes mellitus without complications Status: Acute Assessment and Plan: - hypoglycemia protocol - POC blood glucose ACHS - home medication - empagliflozin 10 mg daily and 3 units TIDWM - correct regimen ordered - continue home medication (6) Combined systolic and diastolic congestive heart failure: Qualifiers: Heart failure chronicity: acute on chronic Qualified Code(s): I50.43 - Acute on chronic combined systolic (congestive) and diastolic (congestive) heart failure Code(s): I50.40 - Unspecified combined systolic (congestive) and diastolic (congestive) heart failure Status: Acute Assessment and Plan: Does not appear to be decompensated however bilateral stump edema is present - monitor (7) S/P AKA (above knee amputation) bilateral: Code(s): Z89.611 - Acquired absence of right leg above knee; Z89.612 - Acquired absence of left leg above knee Status: Acute Assessment and Plan: supportive care Time Spent With Patient Time with patient: 25 - 35 minutes Subjective Date/time seen: 02/27/24 07:56 Interval history: 69-year-old female with dementia, hypertension, hyperlipidemia, peripheral vascular disease, combined systolic and diastolic congestive heart failure, chronic anemia, insulin-dependent type 2 diabetes mellitus, hypothyroidism, gastroesophageal reflux disease, anxiety, and history of breast cancer who presented to the emergency department via EMS from [facility] for elevated vancomycin trough on lab work. Patient is pleasant lying in bed. She has no complaints denying chest pain, shortness of breath, nausea/vomiting and abdominal pain. Discussed patient with ID pharm and they continue to adjust her vancomycin dose at this time. Kidney function has slightly improved. Per RN patients reyes is leaking she has further inflated it and will continue to monitor. Review of Systems Review of Systems: All systems reviewed & are unremarkable except as noted in HPI and below Exam Narrative: AF HR 69 RR 16 SPo2 91 BP 113/59 General: female in no acute respiratory distress who is nontoxic appearing, lying semi recumbent in bed. HEENT: Normocephalic. Atraumatic. Extraocular movement intact. Sclera clear and anicteric. No facial asymmetry. Chest: Lungs are clear to auscultation bilaterally. No wheezes or crackles. CV: Heart was regular rate and rhythm. S1-S2. No murmurs, gallops, or rubs. Abd: Abdomen was soft. Nontender. Nondistended. Positive bowel sounds. No organomegaly or masses. Ext: No clubbing, cyanosis, or edema. Bilateral AKA. Neuro: Patient is alert and oriented x3. Speech is clear. Objective Data Vital Signs Vital Signs: Vital Signs - 24 hr 02/26/24 08:35 02/26/24 14:00 02/26/24 20:16 Temperature 98.5 F 97.2 F L 97.3 F L Pulse Rate 86 69 66 Respiratory Rate 14 18 16 Blood Pressure 100/43 L 98/64 L 97/39 L Pulse Oximetry 95 93 97 02/27/24 05:30 Temperature 97.2 F L Pulse Rate 69 Respiratory Rate 16 Blood Pressure 113/59 L Pulse Oximetry 91 Intake/Output Intake/Output: Intake & Output 02/24/24 02/25/24 02/26/24 02/27/24 23:59 23:59 23:59 23:59 Intake Total 800 1732.5 1310 1000 Output Total 1200 790 175 10 Balance -400 942.5 1135 990 Meds/Results Medications: Active Medications Generic Name Dose Route Start Last Admin Trade Name Freq PRN Reason Stop Dose Admin Bisacodyl 10 mg 02/23/24 23:29 Bisacodyl 10 Mg Suppository RECTAL DAILY PRN Constipation Carvedilol 6.25 mg 02/24/24 09:00 02/26/24 16:59 Carvedilol 6.25 Mg Tablet PO 6.25 mg BIDWM KASIE Administration Dextrose 12.5 gm 02/24/24 08:06 Dextrose 50% 25 Gm/50 Ml Syringe IV PUSH PRN PRN Hypoglycemia Protocol Empagliflozin 10 mg 02/24/24 09:00 02/26/24 08:37 Empagliflozin 10 Mg Tablet PO 10 mg DAILY KASIE Administration Enoxaparin Sodium 30 mg 02/26/24 09:00 02/26/24 12:10 Enoxaparin 30 Mg/0.3 Ml Syringe SUB-Q 30 mg DAILY KASIE Administration Ferrous Sulfate 325 mg 02/25/24 17:00 02/26/24 16:59 Ferrous Sulfate [address] PO 325 mg BID KASIE Administration Fidaxomicin 200 mg 02/24/24 09:00 02/26/24 19:57 Fidaxomicin 200 Mg Tablet PO 200 mg Q12HR KASIE Administration Gabapentin 300 mg 02/24/24 09:00 02/26/24 16:58 Gabapentin 300 Mg Capsule PO 300 mg TID KASIE Administration Glucagon 1 mg 02/24/24 08:06 Glucagon For Inj 1 Mg Vial IM PRN PRN Hypoglycemia Protocol Glucose 15 gm 02/24/24 08:06 Glucose Oral Gel 15 Gm Of Glucse In 37.5 Gm Tube PO PRN PRN Hypoglycemia Protocol Dextrose 1,000 mls @ 100 mls/hr 02/24/24 08:06 Dextrose 5% 1,000 Ml IVPB PRN PRN Hypoglycemia Protocol Sodium Chloride 1,000 mls @ 75 mls/hr 02/25/24 07:30 02/27/24 03:23 Normal Saline Iv IV CONT 75 mls/hr .[id number] KASIE Administration Ertapenem 0.5 gm/ Sodium 50 mls @ 100 mls/hr 02/25/24 10:00 02/26/24 12:06 Chloride IVPB 100 mls/hr Q24H KASIE Administration Insulin Aspart 3 units 02/24/24 08:00 02/26/24 18:38 Insulin Aspart (*Bkc) 100 Units/Ml 0.05 units/kg (3 units) 3 units SUB-Q Administration TIDWM KASIE Levothyroxine Sodium 100 mcg 02/24/24 06:30 02/27/24 05:23 Levothyroxine Sodium 100 Mcg Tablet PO 100 mcg DAILY@0630 KASIE Administration Magnesium Hydroxide 5 ml 02/23/24 23:29 Magnesium Hydroxide Susp 30 Ml Udc PO HS PRN Constipation Ondansetron HCl 4 mg 02/23/24 18:00 Ondansetron Inj 4 Mg/2 Ml Vial IV PUSH Q4H PRN Nausea Pantoprazole Sodium 40 mg 02/24/24 09:00 02/26/24 08:37 Pantoprazole 40 Mg Tablet PO 40 mg QAM KASIE Administration Sacubitril/Valsartan 1 tab 02/24/24 09:00 02/26/24 19:57 Sacubitril/Valsartan 24-26 Mg Tablet PO Not Given Q12HR KASIE Sodium Chloride 10 ml 02/26/24 14:00 02/27/24 05:24 Central Line Flush IV PUSH 10 ml Q8HR KASIE Administration Sodium Chloride 10 ml 02/26/24 08:17 Central Line Flush IV PUSH PRN PRN with TPN bag changes Sodium Chloride 20 ml 02/26/24 08:17 Central Line Flush IV PUSH PRN PRN after blood draws Tramadol HCl 50 mg 02/23/24 23:29 02/26/24 19:57 Tramadol Hcl (*Crx) 50 Mg Tablet PO 50 mg Q8H PRN Administration pain Vancomycin HCl 1 each 02/26/24 12:27 Vancomycin For Acute Kidney Injury IVPB 03/26/24 23:59 PRN PRN Vancomycin Protocol Radiology Results: ITS Impressions Chest X-Ray 02/23/24 18:33 IMPRESSION: 1. PICC tip in the superior vena cava. 2. Cardiomegaly. Renal Ultrasound 02/26/24 10:49 IMPRESSION: 1. Normal kidneys without hydronephrosis. 2. Bladder wall thickening likely related to persistent cystitis and exaggerated by incomplete distention with a Reyes catheter in place. Labs Labs: Laboratory Results - last 24 hr 02/26/24 02/26/24 02/26/24 11:37 13:39 16:12 WBC RBC Hgb 8.2 L Hct 27.0 L MCV MCH MCHC RDW Plt Count MPV Immature Gran % (Auto) Neut % (Auto) Lymph % (Auto) [place] % (Auto) Eos % (Auto) Baso % (Auto) Lymph # (Auto) [place] # (Auto) Eos # (Auto) Baso # (Auto) Abs Immat Gran (auto) Absolute Neuts (auto) Absolute Nucleated RBC Nucleated RBC % Platelet Estimate Anisocytosis Tear Drop Cells Schistocytes Sodium Potassium Chloride Carbon Dioxide Anion Gap BUN Creatinine Estim Creat Clear Calc Estimated GFR Glucose POC Capillary Glucose 208 H 222 H Calcium Total Bilirubin AST ALT Alkaline Phosphatase Total Protein Albumin 02/26/24 02/27/24 02/27/24 19:51 05:22 07:24 WBC 5.8 RBC 2.72 L Hgb 8.1 L Hct 27.1 L MCV 99.6 MCH 29.8 MCHC 29.9 L RDW 15.3 H Plt Count 212 MPV 9.7 Immature Gran % (Auto) 0.3 Neut % (Auto) 68.3 Lymph % (Auto) 16.9 L [place] % (Auto) 9.6 H Eos % (Auto) 4.0 Baso % (Auto) 0.9 Lymph # (Auto) 0.97 [place] # (Auto) 0.6 Eos # (Auto) 0.2 Baso # (Auto) 0.1 Abs Immat Gran (auto) 0.02 Absolute Neuts (auto) 3.9 Absolute Nucleated RBC 0.000 Nucleated RBC % 0.0 Platelet Estimate Adequate Anisocytosis 1+ Tear Drop Cells 1+ Schistocytes None seen Sodium 137 Potassium 4.0 Chloride 105 Carbon Dioxide 24 Anion Gap 8 BUN 36 H Creatinine 1.70 H Estim Creat Clear Calc Not Reportable Estimated GFR 36 L Glucose 193 H POC Capillary Glucose 219 H 193 H Calcium 7.6 L Total Bilirubin 0.5 AST 28 ALT 11 Alkaline Phosphatase 59 Total Protein 7.0 Albumin 2.9 L Quality VTE Prophylaxis VTE prophylaxis: pharmacologic ordered
[2024-02-27] MEDS: INSULIN ASPART (*BKC) 100 UNITS/ML SUB-Q ×3 (09:58→17:12)
[2024-02-27] MEDS: ENOXAPARIN 30 MG/0.3 ML SYRINGE SUB-Q (09:58)
[2024-02-27] MEDS: ERTAPENEM SODIUM 0.5 GM in SODIUM CHLORIDE 0.9% IV 50 ML IVPB (09:58)
[2024-02-27 10:00] VITALS: PULSE 72
[2024-02-27] MEDS: FERROUS SULFATE 325 MG TABLET DR PO ×2 (10:00→17:11)
[2024-02-27] MEDS: FIDAXOMICIN 200 MG TABLET PO ×2 (10:00→21:46)
[2024-02-27] MEDS: SACUBITRIL/VALSARTAN 24-26 MG TABLET 1 TAB PO ×2 (10:00→21:46)
[2024-02-27] MEDS: GABAPENTIN 300 MG CAPSULE PO ×3 (10:00→17:11)
[2024-02-27] MEDS: carvediloL 6.25 MG TABLET PO ×2 (10:00→17:11)
[2024-02-27] MEDS: PANTOPRAZOLE 40 MG TABLET PO (10:00)
[2024-02-27] MEDS: EMPAGLIFLOZIN 10 MG TABLET PO (10:00)
[2024-02-27 11:28] LABS: Glucose Point of Care 193 mg/dl (65-105)
[2024-02-27 14:00] VITALS: BP 113/50; PULSE 69; RESP 16; TEMP 36.3; O2SAT 100
[2024-02-27 16:31] LABS: Glucose Point of Care 176 mg/dl (65-105)
[2024-02-27 17:11] VITALS: PULSE 72
[2024-02-27 20:25] VITALS: BP 85/66; PULSE 70; RESP 20; TEMP 36.8; O2SAT 100
[2024-02-27 21:21] LABS: Glucose Point of Care 156 mg/dl (65-105)
[2024-02-27 23:45] VITALS: BP 115/55; PULSE 71; RESP 20; TEMP 36.6; O2SAT 99
[2024-02-28 04:45] VITALS: BP 119/69; PULSE 70; RESP 20; TEMP 36.5; O2SAT 100
[2024-02-28] MEDS: SODIUM CHLORIDE 0.9% IV 1,000 ML 75 ML IV CONT (05:37)
[2024-02-28] MEDS: LEVOTHYROXINE SODIUM 100 MCG TABLET PO (05:37)
[2024-02-28] MEDS: CENTRAL LINE FLUSH 10 ML IV PUSH ×3 (05:38→21:01)
[2024-02-28 05:58] LABS: Basophils Percent Auto 0.8 % (0.2-1.2); Eosinophils Absolute Auto 0.2 K/mm3 (0-0.3); Eosinophils Percent Auto 4.2 % (0-4.4); Hematocrit 25.9 % (37.0-47.0); Hemoglobin 7.9 g/dL (12.0-15.0); Immature Granulocyte Absolute 0.02 K/mm3 (0.00-0.031); Immature Granulocyte Percent A 0.4 % (0-0.5); Lymphocytes Absolute Auto 1.18 K/mm3 (0.9-3.2); Lymphocytes Percent Auto 22.5 % (18.3-44.2); Mean Corpuscular HGB Conc 30.5 g/dl (32-36); Mean Corpuscular Volume 98.5 fl (80-100); Mean Platelet Volume 9.8 fl (7.4-10.4); Monocytes Absolute Auto 0.6 K/mm3 (0.1-0.6); Monocytes Percent Auto 10.7 % (2.6-8.5); Neutrophils Absolute Auto 3.2 K/mm3 (1.3-6.7); Neutrophils Percent Auto 61.4 % (45.5-73.1); Platelet Count Result 220 k/mm3 (150-375); Red Blood Count 2.63 M/mm3 (4.2-5.4); Red Cell Distribution Width 15.4 % (11.5-14.5); White Blood Count 5.3 K/mm3 (4.5-10.0)
[2024-02-28 06:11] LABS: Alanine Aminotransferase 11 U/L (6-35); Albumin Level 2.9 g/dL (3.5-5.1); Alkaline Phosphatase 56 U/L (38-126); Anion Gap 4 mmol/L (4-12); Aspartate Amino Transferase 23 U/L (14-36); Bilirubin,Total 0.4 mg/dL (0.2-1.3); Blood Urea Nitrogen 33 mg/dL (7-17); Calcium 7.5 mg/dL (8.4-10.2); Carbon Dioxide 25 mmol/L (22-30); Chloride 106 mmol/L (98-107); Estimated Glomerular Filt Rate 39; Glucose 153 mg/dL (65-110); Potassium 3.9 mmol/L (3.4-5.0); Sodium 135 mmol/L (137-145)
[2024-02-28 06:24] LABS: Vancomycin Random 20.2 ug/mL (10-20)
[2024-02-28 08:07] LABS: Glucose Point of Care 153 mg/dl (65-105)
[2024-02-28] MEDS: GABAPENTIN 300 MG CAPSULE PO ×3 (10:04→17:31)
[2024-02-28] MEDS: FERROUS SULFATE 325 MG TABLET DR PO ×2 (10:04→17:30)
[2024-02-28] MEDS: EMPAGLIFLOZIN 10 MG TABLET PO (10:04)
[2024-02-28] MEDS: carvediloL 6.25 MG TABLET PO ×2 (10:04→17:30)
[2024-02-28] MEDS: PANTOPRAZOLE 40 MG TABLET PO (10:04)
[2024-02-28] MEDS: SACUBITRIL/VALSARTAN 24-26 MG TABLET 1 TAB PO ×2 (10:04→21:01)
[2024-02-28] MEDS: FIDAXOMICIN 200 MG TABLET PO ×2 (10:04→21:01)
[2024-02-28] MEDS: ERTAPENEM SODIUM 0.5 GM in SODIUM CHLORIDE 0.9% IV 50 ML IVPB (10:04)
[2024-02-28] MEDS: ENOXAPARIN 30 MG/0.3 ML SYRINGE SUB-Q (10:05)
[2024-02-28] MEDS: INSULIN ASPART (*BKC) 100 UNITS/ML SUB-Q ×3 (10:05→17:31)
[2024-02-28 11:38] LABS: Glucose Point of Care 138 mg/dl (65-105)
--- NOTE | 2024-02-28 13:58 | PM.IMPN ---
Progress Note: A&P Assessment and Plan (1) Abnormal laboratory test: Code(s): R89.9 - Unspecified abnormal finding in specimens from other organs, systems and tissues Status: Acute Assessment and Plan: Per chart review, vanc trough was 43.9 at the facility resulting in patient being admitted for dose adjustments. 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 Urology evaluated patient and noted that given her significant/severe comorbidities I doubt that exhaustive evaluation or repair of a urethral fistula, if present, would be feasible. - She is being covered with dual coverage based on urine culture and gram positive coverage. Continue ertapenem, resumed vanc on 02/25, end date 03/26/24. (3) C. difficile diarrhea: Onset Date: 01/2024 Code(s): A04.72 - Enterocolitis due to Clostridium difficile, not specified as recurrent Status: Acute Assessment and Plan: 02/22: c dif positive - Continue dificid - Having soft formed stools, no signs of melena - Monitor for bloody bowel movements,chest pain,SOB or dizziness/lightheadedness (4) Iron deficiency anemia: Code(s): D50.9 - Iron deficiency anemia, unspecified Status: Acute Assessment and Plan: H/H 10.6/33.6. No signs of active bleeding. - Iron panel: Iron 16, TIBC 157, % sat 10 - B12 and folate WNL - Started on iron supplementation - Continue to monitor H/H (5) Type 2 diabetes mellitus: Code(s): E11.9 - Type 2 diabetes mellitus without complications Status: Acute Assessment and Plan: - hypoglycemia protocol - POC blood glucose ACHS - home medication - empagliflozin 10 mg daily and 3 units TIDWM - correct regimen ordered - continue home medication (6) Combined systolic and diastolic congestive heart failure: Qualifiers: Heart failure chronicity: acute on chronic Qualified Code(s): I50.43 - Acute on chronic combined systolic (congestive) and diastolic (congestive) heart failure Code(s): I50.40 - Unspecified combined systolic (congestive) and diastolic (congestive) heart failure Status: Acute Assessment and Plan: Does not appear to be decompensated however bilateral stump edema is present - monitor (7) S/P AKA (above knee amputation) bilateral: Code(s): Z89.611 - Acquired absence of right leg above knee; Z89.612 - Acquired absence of left leg above knee Status: Acute Assessment and Plan: supportive care Time Spent With Patient Time with patient: Greater than 35 minutes Subjective Date/time seen: 02/28/24 13:58 Interval history: 69-year-old female with dementia, hypertension, hyperlipidemia, peripheral vascular disease, combined systolic and diastolic congestive heart failure, chronic anemia, insulin-dependent type 2 diabetes mellitus, hypothyroidism, gastroesophageal reflux disease, anxiety, and history of breast cancer who presented to the emergency department via EMS from [facility] for elevated vancomycin trough on lab work. Patient is pleasant lying in bed. She has no complaints denying chest pain, shortness of breath, nausea/vomiting and abdominal pain. Discussed patient with ID pharm and they continue to adjust her vancomycin dose at this time. Kidney function has slightly improved. NOted that urine is very cloudy Review of Systems Review of Systems: abnormal lab work All systems reviewed & are unremarkable except as noted in HPI and below ROS unobtainable: Yes unobtainable due to mental status Exam Narrative: General: female in no acute respiratory distress who is nontoxic appearing, lying semi recumbent in bed. HEENT: Normocephalic. Atraumatic. Extraocular movement intact. Sclera clear and anicteric. No facial asymmetry. Chest: Lungs are clear to auscultation bilaterally. No wheezes or crackles. CV: Heart was regular rate and rhythm. S1-S2. No murmurs, gallops, or rubs. Abd: Abdomen was soft. Nontender. Nondistended. Positive bowel sounds. No organomegaly or masses. Ext: No clubbing, cyanosis, or edema. Bilateral AKA. Neuro: Patient is alert and oriented x3. Speech is clear. Const: General: cooperative, comfortable, no acute distress, well developed, alert, awake, ill appearing chronically and edematous Nutritional Appearance: edematous Orientation/consciousness: patient oriented x3 HENMT: Head: normal to inspection, normocephalic and atraumatic Ears: hearing grossly normal bilaterally Face/Nose/Sinus: normal facial exam Face and sinus: normal facial exam Eyes: General: appearance normal, both eyes and all related structures Pupils: Equal, round and reactive pupils present EOM: EOMs intact bilaterally Neck: Neck: full ROM, no lymphadenopathy and no JVD Thyroid: thyroid normal Lymphatic: no lymphadenopathy noted Resp: Effort & Inspection: normal respiratory effort and able to speak in complete sentences Auscultation: clear to auscultation bilaterally Cardio: Jugular venous distension: no JVD Rate: regular rate Rhythm: regular rhythm Heart sounds: S1 normal heart sound present and S2 normal heart sound present : General: Yes deferred Skin: Rashes: no rashes Wounds: no wounds Neuro: General: patient oriented x3 and CN's II-XI intact bilaterally Cranial nerves: Yes CN's II-XII intact bilaterally and Yes Equal, round and reactive pupils present Cognition (Neuro): normal cognition Speech: normal speech Gait exam (Neuro): Other gait observations present (B/L AKA) Motor exam (neuro): 5/5 motor strength present throughout Extrem: General: other (B/L AKA stump edema) Objective Data Vital Signs Vital Signs: Vital Signs - 24 hr 02/27/24 14:00 02/27/24 17:11 02/27/24 20:25 Temperature 97.4 F L 98.2 F Pulse Rate 69 72 70 Respiratory Rate 16 20 Blood Pressure 113/50 L 85/66 L Pulse Oximetry 100 100 02/27/24 23:45 02/28/24 04:45 Temperature 97.8 F 97.7 F Pulse Rate 71 70 Respiratory Rate 20 20 Blood Pressure 115/55 L 119/69 Pulse Oximetry 99 100 Intake/Output Intake/Output: Intake & Output 02/25/24 02/26/24 02/27/24 02/28/24 23:59 23:59 23:59 23:59 Intake Total 1732.5 1360 2710 1963.8 Output Total 790 175 710 450 Balance 942.5 1185 2000 1513.8 Meds/Results Medications: Active Medications Generic Name Dose Route Start Last Admin Trade Name Freq PRN Reason Stop Dose Admin Bisacodyl 10 mg 02/23/24 23:29 Bisacodyl 10 Mg Suppository RECTAL DAILY PRN Constipation Carvedilol 6.25 mg 02/24/24 09:00 02/28/24 10:04 Carvedilol 6.25 Mg Tablet PO 6.25 mg BIDWM KASIE Administration Dextrose 12.5 gm 02/24/24 08:06 Dextrose 50% 25 Gm/50 Ml Syringe IV PUSH PRN PRN Hypoglycemia Protocol Empagliflozin 10 mg 02/24/24 09:00 02/28/24 10:04 Empagliflozin 10 Mg Tablet PO 10 mg DAILY KASIE Administration Enoxaparin Sodium 30 mg 02/26/24 09:00 02/28/24 10:05 Enoxaparin 30 Mg/0.3 Ml Syringe SUB-Q 30 mg DAILY KASIE Administration Ferrous Sulfate 325 mg 02/25/24 17:00 02/28/24 10:04 Ferrous Sulfate [address] PO 325 mg BID KASIE Administration Fidaxomicin 200 mg 02/24/24 09:00 02/28/24 10:04 Fidaxomicin 200 Mg Tablet PO 03/04/24 21:01 200 mg Q12HR KASIE Administration Gabapentin 300 mg 02/24/24 09:00 02/28/24 12:36 Gabapentin 300 Mg Capsule PO 300 mg TID KASIE Administration Glucagon 1 mg 02/24/24 08:06 Glucagon For Inj 1 Mg Vial IM PRN PRN Hypoglycemia Protocol Glucose 15 gm 02/24/24 08:06 Glucose Oral Gel 15 Gm Of Glucse In 37.5 Gm Tube PO PRN PRN Hypoglycemia Protocol Dextrose 1,000 mls @ 100 mls/hr 02/24/24 08:06 Dextrose 5% 1,000 Ml IVPB PRN PRN Hypoglycemia Protocol Sodium Chloride 1,000 mls @ 75 mls/hr 02/25/24 07:30 02/28/24 05:37 Normal Saline Iv IV CONT 75 mls/hr .[id number] KASIE Administration Ertapenem 0.5 gm/ Sodium 50 mls @ 100 mls/hr 02/25/24 10:00 02/28/24 10:04 Chloride IVPB 100 mls/hr Q24H KASIE Administration Vancomycin HCl 1,000 mg in 250 mls @ 250 mls/hr 02/28/24 18:00 Vancomycin 1,000 Mg/Ns 250 Ml IVPB 02/28/24 18:59 ONCE ONE Insulin Aspart 3 units 02/24/24 08:00 02/28/24 12:36 Insulin Aspart (*Bkc) 100 Units/Ml 0.05 units/kg (3 units) 3 units SUB-Q Administration TIDWM KASIE Levothyroxine Sodium 100 mcg 02/24/24 06:30 02/28/24 05:37 Levothyroxine Sodium 100 Mcg Tablet PO 100 mcg DAILY@0630 KASIE Administration Magnesium Hydroxide 5 ml 02/23/24 23:29 Magnesium Hydroxide Susp 30 Ml Udc PO HS PRN Constipation Ondansetron HCl 4 mg 02/23/24 18:00 Ondansetron Inj 4 Mg/2 Ml Vial IV PUSH Q4H PRN Nausea Pantoprazole Sodium 40 mg 02/24/24 09:00 02/28/24 10:04 Pantoprazole 40 Mg Tablet PO 40 mg QAM KASIE Administration Sacubitril/Valsartan 1 tab 02/24/24 09:00 02/28/24 10:04 Sacubitril/Valsartan 24-26 Mg Tablet PO 1 tab Q12HR KASIE Administration Sodium Chloride 10 ml 02/26/24 14:00 02/28/24 05:38 Central Line Flush IV PUSH 10 ml Q8HR KASIE Administration Sodium Chloride 10 ml 02/26/24 08:17 Central Line Flush IV PUSH PRN PRN with TPN bag changes Sodium Chloride 20 ml 02/26/24 08:17 Central Line Flush IV PUSH PRN PRN after blood draws Tramadol HCl 50 mg 02/23/24 23:29 02/26/24 19:57 Tramadol Hcl (*Crx) 50 Mg Tablet PO 50 mg Q8H PRN Administration pain Vancomycin HCl 1 each 02/26/24 12:27 Vancomycin For Acute Kidney Injury IVPB 03/26/24 23:59 PRN PRN Vancomycin Protocol Radiology Results: ITS Impressions Chest X-Ray 02/23/24 18:33 IMPRESSION: 1. PICC tip in the superior vena cava. 2. Cardiomegaly. Renal Ultrasound 02/26/24 10:49 IMPRESSION: 1. Normal kidneys without hydronephrosis. 2. Bladder wall thickening likely related to persistent cystitis and exaggerated by incomplete distention with a Kaplan catheter in place. Labs Labs: Laboratory Results - last 24 hr 02/27/24 02/27/24 02/28/24 16:28 20:31 05:47 WBC 5.3 RBC 2.63 L Hgb 7.9 L Hct 25.9 L MCV 98.5 MCH 30.0 MCHC 30.5 L RDW 15.4 H Plt Count 220 MPV 9.8 Immature Gran % (Auto) 0.4 Neut % (Auto) 61.4 Lymph % (Auto) 22.5 [place] % (Auto) 10.7 H Eos % (Auto) 4.2 Baso % (Auto) 0.8 Lymph # (Auto) 1.18 [place] # (Auto) 0.6 Eos # (Auto) 0.2 Baso # (Auto) 0.0 Abs Immat Gran (auto) 0.02 Absolute Neuts (auto) 3.2 Absolute Nucleated RBC 0.000 Nucleated RBC % 0.0 Sodium 135 L Potassium 3.9 Chloride 106 Carbon Dioxide 25 Anion Gap 4 BUN 33 H Creatinine 1.60 H Estim Creat Clear Calc Not Reportable Estimated GFR 39 L Glucose 153 H POC Capillary Glucose 176 H 156 H Calcium 7.5 L Total Bilirubin 0.4 AST 23 ALT 11 Alkaline Phosphatase 56 Total Protein 7.0 Albumin 2.9 L Random Vancomycin 20.2 H 02/28/24 02/28/24 07:47 11:30 WBC RBC Hgb Hct MCV MCH MCHC RDW Plt Count MPV Immature Gran % (Auto) Neut % (Auto) Lymph % (Auto) [place] % (Auto) Eos % (Auto) Baso % (Auto) Lymph # (Auto) [place] # (Auto) Eos # (Auto) Baso # (Auto) Abs Immat Gran (auto) Absolute Neuts (auto) Absolute Nucleated RBC Nucleated RBC % Sodium Potassium Chloride Carbon Dioxide Anion Gap BUN Creatinine Estim Creat Clear Calc Estimated GFR Glucose POC Capillary Glucose 153 H 138 H Calcium Total Bilirubin AST ALT Alkaline Phosphatase Total Protein Albumin Random Vancomycin Quality VTE Prophylaxis VTE prophylaxis: pharmacologic ordered
[2024-02-28 14:00] VITALS: BP 108/60; PULSE 67; RESP 18; TEMP 36.5; O2SAT 97
[2024-02-28 16:38] LABS: Glucose Point of Care 144 mg/dl (65-105)
[2024-02-28] MEDS: VANCOMYCIN 1,000 MG/NS 250 ML 1,000 MG/250 ML BAG 250 MG IVPB (17:31)
[2024-02-28 20:52] LABS: Glucose Point of Care 114 mg/dl (65-105)
[2024-02-28 21:03] VITALS: BP 114/50; PULSE 58; RESP 16; TEMP 36.9; O2SAT 99
[2024-02-29] MEDS: SODIUM CHLORIDE 0.9% IV 1,000 ML 75 ML IV CONT ×2 (00:30→20:06)
[2024-02-29] MEDS: LEVOTHYROXINE SODIUM 100 MCG TABLET PO (05:50)
[2024-02-29] MEDS: CENTRAL LINE FLUSH 10 ML IV PUSH ×3 (05:50→20:01)
[2024-02-29 06:00] VITALS: BP 103/56; PULSE 68; RESP 14; TEMP 36.4; O2SAT 100
[2024-02-29] MEDS: DEXTROSE 50% 25 GM/50 ML SYRINGE IV PUSH ×3 (06:01→22:31)
[2024-02-29 06:22] LABS: Glucose Point of Care 112 mg/dl (65-105)
[2024-02-29 06:23] LABS: Glucose Point of Care 54 mg/dl (65-105)
[2024-02-29] MEDS: CENTRAL LINE FLUSH 20 ML IV PUSH (06:35)
[2024-02-29 06:49] LABS: Basophils Percent Auto 0.5 % (0.2-1.2); Eosinophils Absolute Auto 0.1 K/mm3 (0-0.3); Eosinophils Percent Auto 1.3 % (0-4.4); Hematocrit 23.7 % (37.0-47.0); Hemoglobin 7.4 g/dL (12.0-15.0); Immature Granulocyte Absolute 0.03 K/mm3 (0.00-0.031); Immature Granulocyte Percent A 0.5 % (0-0.5); Lymphocytes Percent Auto 17.2 % (18.3-44.2); Mean Corpuscular HGB Conc 31.2 g/dl (32-36); Mean Corpuscular Hemoglobin 30.5 pg (26-34); Mean Corpuscular Volume 97.5 fl (80-100); Mean Platelet Volume 9.9 fl (7.4-10.4); Monocytes Absolute Auto 0.5 K/mm3 (0.1-0.6); Monocytes Percent Auto 8.1 % (2.6-8.5); Neutrophils Absolute Auto 4.6 K/mm3 (1.3-6.7); Neutrophils Percent Auto 72.4 % (45.5-73.1); Platelet Count Result 221 k/mm3 (150-375); Red Blood Count 2.43 M/mm3 (4.2-5.4); Red Cell Distribution Width 15.4 % (11.5-14.5); White Blood Count 6.4 K/mm3 (4.5-10.0)
[2024-02-29 06:51] LABS: Glucose Point of Care 110 mg/dl (65-105)
[2024-02-29 07:02] LABS: Alanine Aminotransferase 9 U/L (6-35); Albumin Level 2.6 g/dL (3.5-5.1); Alkaline Phosphatase 35 U/L (38-126); Anion Gap 3 mmol/L (4-12); Aspartate Amino Transferase 22 U/L (14-36); Bilirubin,Total 0.5 mg/dL (0.2-1.3); Blood Urea Nitrogen 32 mg/dL (7-17); Calcium 7.3 mg/dL (8.4-10.2); Carbon Dioxide 24 mmol/L (22-30); Chloride 108 mmol/L (98-107); Estimated Glomerular Filt Rate 45; Glucose 100 mg/dL (65-110); Potassium 3.7 mmol/L (3.4-5.0); Sodium 135 mmol/L (137-145)
[2024-02-29 07:27] LABS: Glucose Point of Care 97 mg/dl (65-105)
--- NOTE | 2024-02-29 09:46 | P.DS_ITS ---
DS: Admitting Diagnosis Discharge Date 02/28 Admitting Diagnosis abd vanc level DS: Discharge Diagnosis Discharge Diagnosis (1) Abnormal laboratory test: Code(s): R89.9 - Unspecified abnormal finding in specimens from other organs, systems and tissues Status: Acute (2) Osteomyelitis: Code(s): M86.9 - Osteomyelitis, unspecified Status: Acute (3) C. difficile diarrhea: Onset Date: 01/2024 Code(s): A04.72 - Enterocolitis due to Clostridium difficile, not specified as recurrent Status: Acute (4) Iron deficiency anemia: Code(s): D50.9 - Iron deficiency anemia, unspecified Status: Acute (5) Type 2 diabetes mellitus: Code(s): E11.9 - Type 2 diabetes mellitus without complications Status: Acute (6) Combined systolic and diastolic congestive heart failure: Qualifiers: Heart failure chronicity: acute on chronic Qualified Code(s): I50.43 - Acute on chronic combined systolic (congestive) and diastolic (congestive) heart failure Code(s): I50.40 - Unspecified combined systolic (congestive) and diastolic (congestive) heart failure Status: Acute (7) S/P AKA (above knee amputation) bilateral: Code(s): Z89.611 - Acquired absence of right leg above knee; Z89.612 - Acquired absence of left leg above knee Status: Acute DS: Summary Hospital Course Hospital Course: This is a 69-year-old female with past medical history significant for hypertension, systolic heart failure, bilateral above the knee amputation, chronic indwelling Kaplan catheter, type 2 diabetes mellitus, recurrent C difficile, gastroesophageal reflux disease, history of ESBL. Patient is a long-term resident undergoing treatment with meropenem and vancomycin PICC line in place was brought to the emergency room due to up trending creatinine on lab work and elevated vanc trough. # abnormal vanc level Per chart review, vanc trough was 43.9 at the facility resulting in patient being admitted for dose adjustments. 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 Urology evaluated patient and noted that given her significant/severe comorbidities I doubt that exhaustive evaluation or repair of a urethral fistula, if present, would be feasible. - She is being covered with dual coverage based on urine culture and gram po sitive coverage. Continue ertapenem, resumed vanc on 02/25, end date 03/26/24. Plan: Vanc 1 gm q48 h- next dose is 03/01 around 7 pm. Please draw vanc level 2-3 h before and follow the protocol to adjust dose if needed. If level is WNL, administer 1 gm # c.diff 02/22: c dif positive - Continue dificid- last dose 03/04 9 pm (9 more doses) - Having soft formed stools, no signs of melena - Monitor for bloody bowel movements,chest pain,SOB or dizziness/lightheadedness # anemia H/H 10.6/33.6. No signs of active bleeding. - Iron panel: Iron 16, TIBC 157, % sat 10 - B12 and folate WNL - Started on iron supplementation stable # t2dm - hypoglycemia protocol - POC blood glucose ACHS - home medication - empagliflozin 10 mg daily and 3 units TIDWM - correct regimen ordered - continue home medication Time Spent with Patient Time attestation: Total time spent providing and/or coordinating discharge services: Exam Narrative: General: female in no acute respiratory distress who is nontoxic appearing, lying semi recumbent in bed. HEENT: Normocephalic. Atraumatic. Extraocular movement intact. Sclera clear and anicteric. No facial asymmetry. Chest: Lungs are clear to auscultation bilaterally. No wheezes or crackles. CV: Heart was regular rate and rhythm. S1-S2. No murmurs, gallops, or rubs. Abd: Abdomen was soft. Nontender. Nondistended. Positive bowel sounds. No organomegaly or masses. Ext: No clubbing, cyanosis, or edema. Bilateral AKA. Neuro: Patient is alert and oriented x3. Speech is clear. Const: General: cooperative, comfortable, no acute distress, well developed, alert and awake Orientation/consciousness: patient oriented x3 HENMT: Head: normal to inspection, normocephalic and atraumatic Ears: hearing grossly normal bilaterally Face/Nose/Sinus: normal facial exam Face and sinus: normal facial exam Eyes: General: appearance normal, both eyes and all related structures Pupils: Equal, round and reactive pupils present EOM: EOMs intact bilaterally Neck: Neck: full ROM, no lymphadenopathy and no JVD Thyroid: thyroid normal Lymphatic: no lymphadenopathy noted Resp: Effort & Inspection: normal respiratory effort and able to speak in complete sentences Auscultation: clear to auscultation bilaterally Cardio: Jugular venous distension: no JVD Rate: regular rate Rhythm: regular rhythm Heart sounds: S1 normal heart sound present and S2 normal heart sound present : General: Yes deferred Skin: Rashes: no rashes Wounds: no wounds Neuro: General: patient oriented x3 and CN's II-XI intact bilaterally Cranial nerves: Yes CN's II-XII intact bilaterally and Yes Equal, round and reactive pupils present Cognition (Neuro): normal cognition Speech: normal speech Gait exam (Neuro): Other gait observations present (B/L AKA) Motor exam (neuro): 5/5 motor strength present throughout Extrem: General: other (B/L AKA stump edema) DS: Data Data Completed and Pending Labs on day of discharge: Labs from last 24 hours 02/29/24 02/29/24 02/29/24 07:24 06:47 06:34 WBC 6.4 RBC 2.43 L Hgb 7.4 L Hct 23.7 L MCV 97.5 MCH 30.5 MCHC 31.2 L RDW 15.4 H Plt Count 221 MPV 9.9 Immature Gran % (Auto) 0.5 Neut % (Auto) 72.4 Lymph % (Auto) 17.2 L [place] % (Auto) 8.1 Eos % (Auto) 1.3 Baso % (Auto) 0.5 Lymph # (Auto) 1.10 [place] # (Auto) 0.5 Eos # (Auto) 0.1 Baso # (Auto) 0.0 Abs Immat Gran (auto) 0.03 Absolute Neuts (auto) 4.6 Absolute Nucleated RBC 0.000 Nucleated RBC % 0.0 Sodium 135 L Potassium 3.7 Chloride 108 H Carbon Dioxide 24 Anion Gap 3 L BUN 32 H Creatinine 1.40 H Estim Creat Clear Calc Not Reportable Estimated GFR 45 L Glucose 100 POC Capillary Glucose 97 110 H Calcium 7.3 L Total Bilirubin 0.5 AST 22 ALT 9 Alkaline Phosphatase 35 L Total Protein 6.0 L Albumin 2.6 L 02/29/24 02/29/24 02/28/24 06:19 05:56 20:17 WBC RBC Hgb Hct MCV MCH MCHC RDW Plt Count MPV Immature Gran % (Auto) Neut % (Auto) Lymph % (Auto) [place] % (Auto) Eos % (Auto) Baso % (Auto) Lymph # (Auto) [place] # (Auto) Eos # (Auto) Baso # (Auto) Abs Immat Gran (auto) Absolute Neuts (auto) Absolute Nucleated RBC Nucleated RBC % Sodium Potassium Chloride Carbon Dioxide Anion Gap BUN Creatinine Estim Creat Clear Calc Estimated GFR Glucose POC Capillary Glucose 112 H 54 L* 114 H Calcium Total Bilirubin AST ALT Alkaline Phosphatase Total Protein Albumin 02/28/24 02/28/24 16:30 11:30 WBC RBC Hgb Hct MCV MCH MCHC RDW Plt Count MPV Immature Gran % (Auto) Neut % (Auto) Lymph % (Auto) [place] % (Auto) Eos % (Auto) Baso % (Auto) Lymph # (Auto) [place] # (Auto) Eos # (Auto) Baso # (Auto) Abs Immat Gran (auto) Absolute Neuts (auto) Absolute Nucleated RBC Nucleated RBC % Sodium Potassium Chloride Carbon Dioxide Anion Gap BUN Creatinine Estim Creat Clear Calc Estimated GFR Glucose POC Capillary Glucose 144 H 138 H Calcium Total Bilirubin AST ALT Alkaline Phosphatase Total Protein Albumin Discharge Plan Discharge Attending physician on discharge: Sallie Kasper Discharging Clinician: Gillian Ulrich Patient Disposition: SNF Activity: as tolerated Diet: as tolerated and diabetic Discharge Instructions: Discharge disposition: Patient was admitted to the hospital for an elevated vancomycin trough Take medications as prescribed Vanc 1 gm q48 h- next dose is 03/01 around 7 pm. Please draw vanc level 2-3 h before and follow the protocol to adjust dose if needed. If level is WNL, administer 1 gm Patient had elevated creatinine during admission, which Eat well balanced meals and stay hydrated Keep active to remain strong Trend urine output Monitor blood pressures Encouraged to continue with yearly vaccinations Return to the emergency department if he developed sudden shortness of breath, chest pain, nausea, vomiting, upset stomach or intractable diarrhea Return to the emergency department if you develop fever greater than 101.5 Follow-up with the primary care physician within 1 weeks Thank you for [facility] for your healthcare needs Patient Language: Georgian Stand Alone Forms: General Discharge Information Follow-up/Referrals: UNKNOWN,DOCTOR [Primary Care Provider] - 1 Week Discharge Medications: New ferrous sulfate 325 mg (65 mg iron) Tablet,Delayed Release (Dr/Ec) 325 mg PO BID Qty: 90 0RF Dificid 200 mg Tablet 200 mg PO Q12HR Qty: 9 0RF sodium chloride 0.9 % Syringe 1 syr IV PUSH PRN PRN (Reason: with TPN bag changes) Qty: 30 0RF Continued atorvastatin 40 mg tablet 40 mg PO HS ondansetron HCl 4 mg tablet 4 mg PO Q8H PRN (Reason: Nausea) levothyroxine 100 mcg tablet 100 mcg PO DAILY gabapentin 300 mg capsule 300 mg PO TID potassium chloride 10 mEq capsule, extended release 10 meq PO DAILY furosemide [Lasix] 40 mg tablet 40 mg PO DAILY sacubitril-valsartan [Entresto] 24-26 mg Tablet 1 tablet PO Q12H naloxone 4 mg/actuation [place],Non-Aerosol 1 spray INTRANASAL Q2M PRN (Reason: OPIOD OVERDOSE) Rx Instructions: spray 1 dose into RIGHT nostril; alternate nostrils w each dose until RESPONSIVE carvedilol [Coreg] 6.25 mg tablet 6.25 mg PO BID Rx Instructions: must administer with a meal/food tramadol 50 mg Tablet 50 mg PO Q8H PRN (Reason: pain) insulin aspart U-100 [Novolog U-100 Insulin aspart] 100 unit/mL solution See Rx Instructions .ROUTE .COMPLEX Qty: 10 0RF Rx Instructions: 150-200 3units, 201-250 6units, 251-300 9units, 301-350 12 units, 351-400 15 units, greater than 401-800 20 units and notify magnesium hydroxide [Milk of Magnesia] 400 mg/5 mL Suspension 400 mg PO HS PRN (Reason: Constipation) Rx Instructions: if no BM in 3 days magnesium citrate [Citroma] Solution 150 ml PO DAILY PRN (Reason: Constipation) Rx Instructions: if no results from enema Fleet Enema 19-7 gram/118 mL Enema 118 ml RECTAL DAILY PRN (Reason: Constipation) Rx Instructions: if no results 1 day after suppository bisacodyl 10 mg Suppository 10 mg RECTAL DAILY PRN (Reason: Constipation) Rx Instructions: if no results from MOM omeprazole 20 mg Capsule,Delayed Release(Dr/Ec) 20 mg PO DAILY empagliflozin 10 mg Tablet 10 mg PO DAILY ertapenem 1 gram Recon Soln 1 g IM DAILY Qty: 26 0RF Rx Instructions: end day 03/26 Changed vancomycin 1.5 gram Recon Soln 1 g IV DAILY Qty: 1 0RF Rx Instructions: end date 03/26/24 Next dose: 03/01 around 7 pm. PLease draw Van level and follow facility protocol for dosing. If vanc level WNL, administer 1 gm. If not, consult pharmacy or Md/[facility] provider for dose adjustment. Discontinued ferrous sulfate 325 mg (65 mg iron) Tablet 325 mg PO DAILY PRN (Reason: anemia) Other Ambulatory Orders: Vancomycin Trough (Routine) Timeframe: 1 Day Location: Determined by Patient Ordered By: Gillian Ulrich Date of admission: 02/24/24 08:29 Primary Care Provider: UNKNOWN,DOCTOR Admitting Provider: Dion Davidson Attending physician on admission: Maryse Daly Condition: Stable Quality VTE Prophylaxis VTE prophylaxis: pharmacologic ordered
[2024-02-29] MEDS: ENOXAPARIN 30 MG/0.3 ML SYRINGE SUB-Q (09:49)
[2024-02-29] MEDS: FIDAXOMICIN 200 MG TABLET PO ×2 (09:50→20:01)
[2024-02-29] MEDS: GABAPENTIN 300 MG CAPSULE PO ×2 (09:50→13:23)
[2024-02-29] MEDS: carvediloL 6.25 MG TABLET PO (09:50)
[2024-02-29] MEDS: ERTAPENEM SODIUM 0.5 GM in SODIUM CHLORIDE 0.9% IV 50 ML IVPB (09:50)
[2024-02-29] MEDS: PANTOPRAZOLE 40 MG TABLET PO (09:50)
[2024-02-29] MEDS: EMPAGLIFLOZIN 10 MG TABLET PO (09:50)
[2024-02-29] MEDS: FERROUS SULFATE 325 MG TABLET DR PO (09:50)
[2024-02-29] MEDS: SACUBITRIL/VALSARTAN 24-26 MG TABLET 1 TAB PO ×2 (09:50→20:01)
[2024-02-29] MEDS: INSULIN ASPART (*BKC) 100 UNITS/ML SUB-Q ×2 (09:51→13:23)
[2024-02-29 11:16] LABS: Glucose Point of Care 142 mg/dl (65-105)
[2024-02-29 14:00] VITALS: BP 94/51; PULSE 59; RESP 16; TEMP 35.7; O2SAT 100
[2024-02-29 16:18] LABS: Glucose Point of Care 62 mg/dl (65-105)
[2024-02-29 16:40] LABS: Glucose Point of Care 126 mg/dl (65-105)
[2024-02-29 17:06] LABS: Glucose Point of Care 98 mg/dl (65-105)
[2024-02-29 17:12] VITALS: BP 100/57
[2024-02-29 21:40] LABS: Glucose Point of Care 62 mg/dl (65-105)
[2024-02-29 21:40] LABS: Glucose Point of Care 54 mg/dl (65-105)
[2024-02-29] MEDS: GLUCOSE ORAL GEL 15 GM OF GLUCSE IN 37.5 GM TUBE PO (21:48)
[2024-02-29 22:00] VITALS: BP 114/60; PULSE 62; RESP 22; TEMP 35.8; O2SAT 100
[2024-02-29 22:23] LABS: Glucose Point of Care 78 mg/dl (65-105)
[2024-02-29 23:02] LABS: Glucose Point of Care 120 mg/dl (65-105)
[2024-03-01 02:01] LABS: Glucose Point of Care 92 mg/dl (65-105)
[2024-03-01] MEDS: LEVOTHYROXINE SODIUM 100 MCG TABLET PO (05:16)
[2024-03-01] MEDS: CENTRAL LINE FLUSH 10 ML IV PUSH ×2 (05:16→18:53)
[2024-03-01] MEDS: CENTRAL LINE FLUSH 20 ML IV PUSH (05:28)
[2024-03-01 05:50] LABS: Basophils Percent Auto 0.7 % (0.2-1.2); Eosinophils Absolute Auto 0.2 K/mm3 (0-0.3); Eosinophils Percent Auto 3.5 % (0-4.4); Hematocrit 27.2 % (37.0-47.0); Hemoglobin 8.4 g/dL (12.0-15.0); Immature Granulocyte Absolute 0.02 K/mm3 (0.00-0.031); Immature Granulocyte Percent A 0.4 % (0-0.5); Lymphocytes Absolute Auto 1.06 K/mm3 (0.9-3.2); Lymphocytes Percent Auto 19.7 % (18.3-44.2); Mean Corpuscular HGB Conc 30.9 g/dl (32-36); Mean Corpuscular Hemoglobin 30.2 pg (26-34); Mean Corpuscular Volume 97.8 fl (80-100); Monocytes Absolute Auto 0.4 K/mm3 (0.1-0.6); Monocytes Percent Auto 7.6 % (2.6-8.5); Neutrophils Absolute Auto 3.7 K/mm3 (1.3-6.7); Neutrophils Percent Auto 68.1 % (45.5-73.1); Platelet Count Result 241 k/mm3 (150-375); Red Blood Count 2.78 M/mm3 (4.2-5.4); Red Cell Distribution Width 15.6 % (11.5-14.5); White Blood Count 5.4 K/mm3 (4.5-10.0)
[2024-03-01 05:55] LABS: Glucose Point of Care 104 mg/dl (65-105)
[2024-03-01 05:55] LABS: Alanine Aminotransferase 9 U/L (6-35); Albumin Level 2.8 g/dL (3.5-5.1); Alkaline Phosphatase 56 U/L (38-126); Anion Gap 6 mmol/L (4-12); Aspartate Amino Transferase 22 U/L (14-36); Bilirubin,Total 0.4 mg/dL (0.2-1.3); Blood Urea Nitrogen 29 mg/dL (7-17); Calcium 7.5 mg/dL (8.4-10.2); Carbon Dioxide 23 mmol/L (22-30); Chloride 112 mmol/L (98-107); Estimated Glomerular Filt Rate 54; Glucose 94 mg/dL (65-110); Potassium 3.7 mmol/L (3.4-5.0); Sodium 141 mmol/L (137-145)
[2024-03-01 06:00] VITALS: BP 124/61; PULSE 62; RESP 20; TEMP 36.6; O2SAT 100
[2024-03-01 06:47] LABS: Vancomycin Random 18.2 ug/mL (10-20)
[2024-03-01] MEDS: SODIUM CHLORIDE 0.9% IV 1,000 ML 75 ML IV CONT (07:27)
[2024-03-01 08:16] LABS: Glucose Point of Care 107 mg/dl (65-105)
--- NOTE | 2024-03-01 08:28 | P.DS_ITS ---
DS: Admitting Diagnosis Discharge Date 03/01 Admitting Diagnosis high vanc level DS: Discharge Diagnosis Discharge Diagnosis (1) Abnormal laboratory test: Code(s): R89.9 - Unspecified abnormal finding in specimens from other organs, systems and tissues Status: Acute (2) Osteomyelitis: Code(s): M86.9 - Osteomyelitis, unspecified Status: Acute (3) C. difficile diarrhea: Onset Date: 01/2024 Code(s): A04.72 - Enterocolitis due to Clostridium difficile, not specified as recurrent Status: Acute (4) Iron deficiency anemia: Code(s): D50.9 - Iron deficiency anemia, unspecified Status: Acute (5) Type 2 diabetes mellitus: Code(s): E11.9 - Type 2 diabetes mellitus without complications Status: Acute Assessment and Plan: - (6) Combined systolic and diastolic congestive heart failure: Qualifiers: Heart failure chronicity: acute on chronic Qualified Code(s): I50.43 - Acute on chronic combined systolic (congestive) and diastolic (congestive) heart failure Code(s): I50.40 - Unspecified combined systolic (congestive) and diastolic (congestive) heart failure Status: Acute (7) S/P AKA (above knee amputation) bilateral: Code(s): Z89.611 - Acquired absence of right leg above knee; Z89.612 - Acquired absence of left leg above knee Status: Acute DS: Summary Hospital Course Hospital Course: This is a 69-year-old female with past medical history significant for hypertension, systolic heart failure, bilateral above the knee amputation, chronic indwelling Kaplan catheter, type 2 diabetes mellitus, recurrent C difficile, gastroesophageal reflux disease, history of ESBL. Patient is a [place] resident undergoing treatment with meropenem and vancomycin PICC line in place was brought to the emergency room due to up trending creatinine on lab work and elevated vanc trough. # abnormal vanc level Per chart review, vanc trough was 43.9 at the facility resulting in patient being admitted for dose adjustments. 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 Urology evaluated patient and noted that given her significant/severe comorbidities I doubt that exhaustive evaluation or repair of a urethral fistula, if present, would be feasible. - She is being covered with dual coverage based on urine culture and gram positive coverage. Continue ertapenem, resumed vanc on 02/25, end date 03/26/24. Plan: Vanc 1 gm q48 h- next dose is 03/01. will be given in the hospital on 03/01 (vanc level is 18.2) NEXT DOSE IS 03/03 Please draw vanc level 2-3 h before and follow the protocol to adjust dose if needed. If level is WNL, administer 1 gm # c.diff 02/22: c dif positive - Continue dificid- last dose 03/04 9 pm (9 more doses) - Having soft formed stools, no signs of melena - Monitor for bloody bowel movements,chest pain,SOB or dizziness/lightheadedness # anemia H/H 10.6/33.6. No signs of active bleeding. - Iron panel: Iron 16, TIBC 157, % sat 10 - B12 and folate WNL - Started on iron supplementation stable # t2dm - hypoglycemia protocol - POC blood glucose ACHS - home medication - empagliflozin 10 mg daily and 3 units TIDWM - correct regimen ordered - continue home medication Time Spent with Patient Time attestation: Total time spent providing and/or coordinating discharge services: Exam Narrative: General: female in no acute respiratory distress who is nontoxic appearing, lyin g semi recumbent in bed. HEENT: Normocephalic. Atraumatic. Extraocular movement intact. Sclera clear and anicteric. No facial asymmetry. Chest: Lungs are clear to auscultation bilaterally. No wheezes or crackles. CV: Heart was regular rate and rhythm. S1-S2. No murmurs, gallops, or rubs. Abd: Abdomen was soft. Nontender. Nondistended. Positive bowel sounds. No organomegaly or masses. Ext: No clubbing, cyanosis, or edema. Bilateral AKA. Neuro: Patient is alert and oriented x3. Speech is clear. Const: General: cooperative, comfortable, no acute distress, well developed, alert, awake, ill appearing chronically and edematous Nutritional Appearance: edematous Orientation/consciousness: patient oriented x3 HENMT: Head: normal to inspection, normocephalic and atraumatic Ears: hearing grossly normal bilaterally Face/Nose/Sinus: normal facial exam Face and sinus: normal facial exam Eyes: General: appearance normal, both eyes and all related structures Pupils: Equal, round and reactive pupils present EOM: EOMs intact bilaterally Neck: Neck: full ROM, no lymphadenopathy and no JVD Thyroid: thyroid normal Lymphatic: no lymphadenopathy noted Resp: Effort & Inspection: normal respiratory effort and able to speak in complete sentences Auscultation: clear to auscultation bilaterally Cardio: Jugular venous distension: no JVD Rate: regular rate Rhythm: regular rhythm Heart sounds: S1 normal heart sound present and S2 normal heart sound present : General: Yes deferred Skin: Rashes: no rashes Wounds: no wounds Neuro: General: patient oriented x3 and CN's II-XI intact bilaterally Cranial nerves: Yes CN's II-XII intact bilaterally and Yes Equal, round and reactive pupils present Cognition (Neuro): normal cognition Speech: normal speech Gait exam (Neuro): Other gait observations present (B/L AKA) Motor exam (neuro): 5/5 motor strength present throughout Extrem: General: other (B/L AKA stump edema) DS: Data Data Completed and Pending Labs on day of discharge: Labs from last 24 hours 03/01/24 03/01/24 03/01/24 08:11 05:25 05:07 WBC 5.4 RBC 2.78 L Hgb 8.4 L Hct 27.2 L MCV 97.8 MCH 30.2 MCHC 30.9 L RDW 15.6 H Plt Count 241 MPV 10.0 Immature Gran % (Auto) 0.4 Neut % (Auto) 68.1 Lymph % (Auto) 19.7 [place] % (Auto) 7.6 Eos % (Auto) 3.5 Baso % (Auto) 0.7 Lymph # (Auto) 1.06 [place] # (Auto) 0.4 Eos # (Auto) 0.2 Baso # (Auto) 0.0 Abs Immat Gran (auto) 0.02 Absolute Neuts (auto) 3.7 Absolute Nucleated RBC 0.000 Nucleated RBC % 0.0 Sodium 141 Potassium 3.7 Chloride 112 H Carbon Dioxide 23 Anion Gap 6 BUN 29 H Creatinine 1.20 H Estim Creat Clear Calc Not Reportable Estimated GFR 54 L Glucose 94 POC Capillary Glucose 107 H 104 Calcium 7.5 L Total Bilirubin 0.4 AST 22 ALT 9 Alkaline Phosphatase 56 Total Protein 7.0 Albumin 2.8 L Random Vancomycin 18.2 03/01/24 02/29/24 02/29/24 00:54 22:59 22:19 WBC RBC Hgb Hct MCV MCH MCHC RDW Plt Count MPV Immature Gran % (Auto) Neut % (Auto) Lymph % (Auto) [place] % (Auto) Eos % (Auto) Baso % (Auto) Lymph # (Auto) [place] # (Auto) Eos # (Auto) Baso # (Auto) Abs Immat Gran (auto) Absolute Neuts (auto) Absolute Nucleated RBC Nucleated RBC % Sodium Potassium Chloride Carbon Dioxide Anion Gap BUN Creatinine Estim Creat Clear Calc Estimated GFR Glucose POC Capillary Glucose 92 120 H 78 Calcium Total Bilirubin AST ALT Alkaline Phosphatase Total Protein Albumin Random Vancomycin 02/29/24 02/29/24 02/29/24 21:35 20:58 16:54 WBC RBC Hgb Hct MCV MCH MCHC RDW Plt Count MPV Immature Gran % (Auto) Neut % (Auto) Lymph % (Auto) [place] % (Auto) Eos % (Auto) Baso % (Auto) Lymph # (Auto) [place] # (Auto) Eos # (Auto) Baso # (Auto) Abs Immat Gran (auto) Absolute Neuts (auto) Absolute Nucleated RBC Nucleated RBC % Sodium Potassium Chloride Carbon Dioxide Anion Gap BUN Creatinine Estim Creat Clear Calc Estimated GFR Glucose POC Capillary Glucose 54 L* 62 L 98 Calcium Total Bilirubin AST ALT Alkaline Phosphatase Total Protein Albumin Random Vancomycin 02/29/24 02/29/24 02/29/24 16:36 16:15 11:14 WBC RBC Hgb Hct MCV MCH MCHC RDW Plt Count MPV Immature Gran % (Auto) Neut % (Auto) Lymph % (Auto) [place] % (Auto) Eos % (Auto) Baso % (Auto) Lymph # (Auto) [place] # (Auto) Eos # (Auto) Baso # (Auto) Abs Immat Gran (auto) Absolute Neuts (auto) Absolute Nucleated RBC Nucleated RBC % Sodium Potassium Chloride Carbon Dioxide Anion Gap BUN Creatinine Estim Creat Clear Calc Estimated GFR Glucose POC Capillary Glucose 126 H 62 L 142 H Calcium Total Bilirubin AST ALT Alkaline Phosphatase Total Protein Albumin Random Vancomycin Discharge Plan Discharge Attending physician on discharge: Sallie Kasper Discharging Clinician: Gillian Ulrich Anticipated Discharge Date/Time: 02/29/24 14:25 Patient Disposition: SNF Activity: as tolerated Diet: as tolerated and diabetic Discharge Instructions: Discharge disposition: Patient was admitted to the hospital for an elevated vancomycin trough Take medications as prescribed Vanc 1 gm q48 h- next dose is 03/01. will be given in the hospital on 03/01 (vanc level is 18.2) NEXT DOSE IS 03/03 Please draw vanc level 2-3 h before and follow the protocol to adjust dose if needed. If level is WNL, administer 1 gm Patient had elevated creatinine during admission, which Eat well balanced meals and stay hydrated Keep active to remain strong Trend urine output Monitor blood pressures Encouraged to continue with yearly vaccinations Return to the emergency department if he developed sudden shortness of breath, chest pain, nausea, vomiting, upset stomach or intractable diarrhea Return to the emergency department if you develop fever greater than 101.5 Follow-up with the primary care physician within 1 weeks Thank you for [facility] for your healthcare needs Patient Instructions: Vancomycin (By injection), How to Care for Your PICC (Peripherally Inserted Central Catheter) (GEN) Patient Language: [place] Stand Alone Forms: General Discharge Information, Half-Way Discharge Follow-up/Referrals: UNKNOWN,DOCTOR [Primary Care Provider] - 1 Week Discharge Medications: New ferrous sulfate 325 mg (65 mg iron) Tablet,Delayed Release (Dr/Ec) 325 mg PO BID Qty: 90 0RF Dificid 200 mg Tablet 200 mg PO Q12HR Qty: 9 0RF sodium chloride 0.9 % Syringe 1 syr IV PUSH PRN PRN (Reason: with TPN bag changes) Qty: 30 0RF vancomycin 1,000 mg Recon Soln 1,000 mg IV Q48H Qty: 0 0RF Rx Instructions: Vanc 1 gm q48 h- next dose is 03/01. will be given in the hospital on 03/01 (vanc level is 18.2) NEXT DOSE IS 03/03 Please draw vanc level 2-3 h before and follow the protocol to adjust dose if needed. If level is WNL, administer 1 gm Continued atorvastatin 40 mg tablet 40 mg PO HS ondansetron HCl 4 mg tablet 4 mg PO Q8H PRN (Reason: Nausea) levothyroxine 100 mcg tablet 100 mcg PO DAILY gabapentin 300 mg capsule 300 mg PO TID potassium chloride 10 mEq capsule, extended release 10 meq PO DAILY furosemide [Lasix] 40 mg tablet 40 mg PO DAILY sacubitril-valsartan [Entresto] 24-26 mg Tablet 1 tablet PO Q12H naloxone 4 mg/actuation [place],Non-Aerosol 1 spray INTRANASAL Q2M PRN (Reason: OPIOD OVERDOSE) Rx Instructions: spray 1 dose into RIGHT nostril; alternate nostrils w each dose until RESPONSIVE carvedilol [Coreg] 6.25 mg tablet 6.25 mg PO BID Rx Instructions: must administer with a meal/food tramadol 50 mg Tablet 50 mg PO Q8H PRN (Reason: pain) insulin aspart U-100 [Novolog U-100 Insulin aspart] 100 unit/mL solution See Rx Instructions .ROUTE .COMPLEX Qty: 10 0RF Rx Instructions: 150-200 3units, 201-250 6units, 251-300 9units, 301-350 12 units, 351-400 15 units, greater than 401-800 20 units and notify magnesium hydroxide [Milk of Magnesia] 400 mg/5 mL Suspension 400 mg PO HS PRN (Reason: Constipation) Rx Instructions: if no BM in 3 days magnesium citrate [Citroma] Solution 150 ml PO DAILY PRN (Reason: Constipation) Rx Instructions: if no results from enema Fleet Enema 19-7 gram/118 mL Enema 118 ml RECTAL DAILY PRN (Reason: Constipation) Rx Instructions: if no results 1 day after suppository bisacodyl 10 mg Suppository 10 mg RECTAL DAILY PRN (Reason: Constipation) Rx Instructions: if no results from MOM omeprazole 20 mg Capsule,Delayed Release(Dr/Ec) 20 mg PO DAILY empagliflozin 10 mg Tablet 10 mg PO DAILY ertapenem 1 gram Recon Soln 1 g IM DAILY Qty: 26 0RF Rx Instructions: end day 03/26 Discontinued ferrous sulfate 325 mg (65 mg iron) Tablet 325 mg PO DAILY PRN (Reason: anemia) Other Ambulatory Orders: Vancomycin Trough (Routine) Timeframe: 1 Day Location: Determined by Patient Ordered By: Gillian Ulrich Date of admission: 02/24/24 08:29 Primary Care Provider: UNKNOWN,DOCTOR Admitting Provider: Dion Davidson Attending physician on admission: Maryse Daly Condition: Stable Quality VTE Prophylaxis VTE prophylaxis: pharmacologic ordered
[2024-03-01] MEDS: GABAPENTIN 300 MG CAPSULE PO ×3 (09:07→17:05)
[2024-03-01] MEDS: SACUBITRIL/VALSARTAN 24-26 MG TABLET 1 TAB PO (09:07)
[2024-03-01] MEDS: PANTOPRAZOLE 40 MG TABLET PO (09:07)
[2024-03-01 09:08] VITALS: PULSE 68
[2024-03-01] MEDS: FERROUS SULFATE 325 MG TABLET DR PO ×2 (09:08→17:05)
[2024-03-01] MEDS: carvediloL 6.25 MG TABLET PO ×2 (09:08→17:05)
[2024-03-01] MEDS: EMPAGLIFLOZIN 10 MG TABLET PO (09:08)
[2024-03-01] MEDS: FIDAXOMICIN 200 MG TABLET PO (09:08)
[2024-03-01] MEDS: VANCOMYCIN 1,000 MG/NS 250 ML 1,000 MG/250 ML BAG 250 MG IVPB (09:10)
[2024-03-01] MEDS: ERTAPENEM SODIUM 0.5 GM in SODIUM CHLORIDE 0.9% IV 50 ML IVPB (10:39)
[2024-03-01 11:40] LABS: Glucose Point of Care 133 mg/dl (65-105)
[2024-03-01 14:00] VITALS: BP 100/42; PULSE 88; RESP 18; TEMP 37.2; O2SAT 100
[2024-03-01 16:54] LABS: Glucose Point of Care 168 mg/dl (65-105)
--- NOTE | 2024-03-01 18:55 | PC.NURSE ---
This RN attempted to call report to [facility] twice and was placed to voicemail. The third attempt, the membership secretary said that there had not been a nurse on that galicia earlier, and that she was counting narcotics at this time. This RN left her name and number for receiving facility to request report.
== END 2024-03-01 18:10 | DRG 947 ==
LOC: ANHED 18:07 → ANH3MEDSUR 18:56
PROVIDERS: Internal Medicine; Student in an Organized Health Care Education/Training Program; Admitting Provider Internal Medicine; Emergency Provider Physician Assistant; Visit Provider Nurse Practitioner
DX: R89.2 Abnormal level of other drugs, medicaments and biological substances in specimens from other organs, systems and tissues (principal); I50.43 Acute on chronic combined systolic (congestive) and diastolic (congestive) heart failure; A04.72 Enterocolitis due to Clostridium difficile, not specified as recurrent; N39.0 Urinary tract infection, site not specified; Z16.12 Extended spectrum beta lactamase (ESBL) resistance; M86.18 Other acute osteomyelitis, other site; B96.29 Other Escherichia coli [E. coli] as the cause of diseases classified elsewhere; D50.9 Iron deficiency anemia, unspecified; K21.9 Gastro-esophageal reflux disease without esophagitis; E11.42 Type 2 diabetes mellitus with diabetic polyneuropathy; F03.90 Unspecified dementia, unspecified severity, without behavioral disturbance, psychotic disturbance, mood disturbance, and anxiety; E78.5 Hyperlipidemia, unspecified; Z66 Do not resuscitate; I73.9 Peripheral vascular disease, unspecified; Z85.850 Personal history of malignant neoplasm of thyroid; Z89.611 Acquired absence of right leg above knee; Z89.612 Acquired absence of left leg above knee; Z85.3 Personal history of malignant neoplasm of breast; I25.2 Old myocardial infarction
CPT/HCPCS: 36415; 71045; 76775; 80048; 80053; 80202; 82565; 82607; 82746; 82948; 83540; 83550; 85014; 85018; 85025; 85055; 87040; 87086; 87493; 96374; 99285; A9270; G0378; J1335; J1650; J1815; J3370; J7030

== ENCOUNTER 2024-05-04 06:34 | Inpatient (IN) | payer MEDICARE, MEDICAID, SELFPAY ==
[2024-05-04] VITALS (29 sets, daily range): BP systolic 71–142; BP diastolic 28–65; PULSE 62–72; RESP 10–19; TEMP 36.6–37.2; O2SAT 96–100; BMI 25.0
--- NOTE | ~2024-05-04 | CT_ITS ---
EXAMINATION: CT abdomen pelvis wo con DATE: 05/04/2024 09:20 INDICATION: Upper gastrointestinal bleed TECHNIQUE: Computed tomography (CT) of the abdomen and pelvis was performed without intravenous contr ast. Automated exposure control and iterative reconstruction technique were employed. The dose-length product was 775.74 mGy-cm. COMPARISON: 01/30/2024 FINDINGS: Mild atelectasis at the left lung base. There are tree-in-bud opacities in the dependent right lower lobe consistent with endobronchial spread of disease such as aspiration or pneumonia. Cardiomegaly. U nchanged small pericardial effusion. Atherosclerotic coronary artery calcifications and aortic valve calcification. Trace right pleural effusion. Numerous scattered hepatic and splenic calcifications consistent with old granulomatous disease. Gall bladder is nonvisualized and is likely surgically absent. Moderate fatty atrophy of the pancreas. Ezra ateral adrenal glands and right kidney are normal. There is gas and a Kaplan catheter within the bladder which appears to demonstrate some wall thickenin g and subtle haziness to the surrounding fat suspicious for cystitis. Mild left hydronephrosis with a dditional gas in the left renal pelvis and multiple calyces with some haziness to the renal sinus fat raising concern for ascending urinary tract infection. Large ball of stool at the rectum measuring up to 7.4 x 7.3 cm suspicious for constipation with fecal impaction. There is surrounding rectal wall thickening consistent with secondary stercoral colitis. There is fluid in the proximal colon as well as multiple nondilated loops of small bowel consistent w ith nonspecific diarrhea. There is anastomotic suture line along a loop of small bowel in the right l ower quadrant. Normal appendix. Postoperative change of prior ventral hernia repair with partially rim calcified loculated subcutaneo us fluid collection superficially measurable tear which measures 15.5 x 10.0 x 7.4 cm. No free intrap eritoneal gas or fluid. No pathologically enlarged abdominal or pelvic lymphadenopathy. Widening of t he pubic symphysis with intervening small fluid collection. There is adjacent sclerosis and chronic e rosions at the bilateral pubic bodies consistent which could be related to chronic osteitis findings on earlier CT suggestive of fistulous communication to the urethra. No gas is seen in the pubic symph ysis on the current study. Otherwise mild degenerative skeletal changes in the spine or pelvis. IMPRESSION: 1. Large gallstone at the rectum with rectal wall thickening consistent with likely constipation with fecal impaction and secondary stercoral colitis. 2. Findings suspicious for chronic cystitis and left-sided ascending urinary tract infection with mil d left hydronephrosis with gas in the collecting system subtle haziness in the renal sinus fat. 3. New tree-in-bud opacities in the dependent right lower lobe consistent with endobronchial spread o f disease such as aspiration or pneumonia. 4. Cardiomegaly with chronic small pericardial effusion. 5. 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 Reviewed, dictated and finalized at location A. [employer] IMPRESSION: 1. Large gallstone at the rectum with rectal wall thickening consistent with li sparkle constipation with fecal impaction and secondary stercoral colitis. 2. Findings suspicious for chronic cystitis and left-sided ascending urinary tr act infection with mild left hydronephrosis with gas in the collecting system s ubtle haziness in the renal sinus fat. 3. New tree-in-bud opacities in the dependent right lower lobe consistent with endobronchial spread of disease such as aspiration or pneumonia. 4. Cardiomegaly with chronic small pericardial effusion. 5. Stable appearance of findings suggestive of chronic osteomyelitis at the ezra ateral pubic bodies.
--- NOTE | 2024-05-04 07:56 | ED.GENADULT ---
HPI - General Adult General Chief complaint: GI Bleed Stated complaint: COFFEE GROUND EMESIS Time Seen by Provider: 05/04/24 06:55 History of Present Illness HPI narrative: 69-year-old female present to the emergency department for evaluation for coffee-ground emesis. Patient states she was having emesis all night long. Patient denies any pain. Patient is alert oriented at her baseline for shelter. Patient does have history of iron deficiency anemia, diabetes, hypertension, CHF, AKA bilaterally Related Data Home Medications ?Medication ?Instructions ?Recorded ?Confirmed ?Last Taken ?Type atorvastatin 40 mg tablet 40 mg PO HS 12/05/21 05/04/24 02/22/24 History levothyroxine 100 mcg tablet 100 mcg PO DAILY 12/05/21 05/04/24 Unknown History gabapentin 300 mg capsule 300 mg PO TID 05/16/22 05/04/24 Unknown History potassium chloride 10 mEq 10 meq PO DAILY 05/16/22 05/04/24 Unknown History capsule,extended release furosemide 40 mg tablet (Lasix) 40 mg PO DAILY 01/10/24 05/04/24 Unknown History carvedilol 6.25 mg tablet (Coreg) 6.25 mg PO BID 01/30/24 05/04/24 02/23/24 History naloxone 4 mg/actuation nasal spray 1 spray intranasal Q2M PRN OPIOD 01/30/24 05/04/24 Unknown History OVERDOSE sacubitril 24 mg-valsartan 26 mg 1 tablet PO Q12H 01/30/24 05/04/24 Unknown History tablet (Entresto) tramadol 50 mg tablet 50 mg PO Q8H PRN pain 01/30/24 05/04/24 Unknown History magnesium citrate (Citroma oral 150 ml PO DAILY PRN Constipation 02/15/24 05/04/24 Unknown History solution) magnesium hydroxide 400 mg/5 mL 400 mg PO HS PRN Constipation 02/15/24 05/04/24 Unknown History oral suspension (Milk of Magnesia) omeprazole 20 mg capsule,delayed 20 mg PO DAILY 02/15/24 05/04/24 Unknown History release sodium phosphates 19 gram-7 118 ml RECTAL DAILY PRN 02/15/24 05/04/24 Unknown History gram/118 mL enema (Fleet Enema) Constipation acetaminophen 325 mg capsule 325 mg PO Q4H PRN pain 05/04/24 05/04/24 Unknown History calcium 600 mg (as 600 cap PO DAILY 05/04/24 05/04/24 Unknown History carbonate)-vitamin D3 5 mcg (200 unit) capsule (Calcium 600 + D(3)) calcium alginate 2 X 2 bandage 05/04/24 05/04/24 Unknown History collagen (bovine) 100 % topical 1 applic topical DAILY 05/04/24 05/04/24 Unknown History powder cyanocobalamin (vitamin B-12) 1,000 mcg PO DAILY 05/04/24 05/04/24 Unknown History 1,000 mcg capsule multivitamin,tx-minerals 1 cap PO DAILY 05/04/24 05/04/24 Unknown History (Multi-Vitamin HP/Minerals capsule) silver sulfadiazine 1 % topical 1 applic topical DAILY sacrum wound 05/04/24 05/04/24 Unknown History cream (Silvadene) spironolactone 25 mg tablet 25 mg PO DAILY 05/04/24 05/04/24 Unknown History Allergies Allergy/AdvReac Type Severity Reaction Status Date / Time codeine Allergy Unknown Verified 05/04/24 06:39 Review of Systems Review of Systems: All systems reviewed & are unremarkable except as noted in HPI and below PMFSH Past Medical History Medical History (Updated 05/04/24 @ 14:17 by Veto Vegas MD) Abnormal CT of the abdomen Stercoral colitis Coffee ground emesis Urinary tract infection due to extended-spectrum beta lactamase (ESBL) producing Escherichia coli Type 2 diabetes mellitus Hypertension C. difficile diarrhea (01/2024) Gastroesophageal reflux disease History of breast cancer Dyslipidemia Thyroid cancer Hyperlipidemia Peripheral vascular disease Anemia Non-STEMI (non-ST elevated myocardial infarction) Combined systolic and diastolic congestive heart failure echocardiogram 12/06/2021: Severely reduced right ventricular systolic function with EF of 20-25%, moderate left ventricular chamber enlargement, moderate left atrial enlargement, grade 2 diastolic dysfunction Neuropathy Psychiatric disorder Dementia Surgical History Surgical History History of above-knee amputation of both lower extremities History of thyroid surgery History of right breast implant Patient reports that it was radiation implant History of lumpectomy of left breast Family History Family History Mother Family history of type 2 diabetes mellitus, Onset Age: 55 Father Acute myocardial infarction, Onset Age: 58 Social History Social History Social History: Surrogate medical decision maker: Ailyn Turner, daughter. Code status: Do not resuscitate with selective treatment (paperwork accompanies the patient). Smoking status: Unknown if ever smoked Second hand tobacco smoke exposure: No Alcohol intake: unknown Substance use: unknown Substance use type: does not use Do You Feel Safe in your Home?: Yes Lack of Transportation: No Lack of Food: Never True Current Housing: I Have Housing Concerned About Future Housing: No Difficulty Paying Gas/Electric Bills: No Difficulty Paying for Meds: No Currently Unemployed: No Education: High School Diploma/GED Difficulty w/ Childcare or Family Care: No Spiritual care concerns: No Exam Narrative: APPEARANCE: Well appearing, no pain, no distress, well-nourished. HEAD: normocephalic, atraumatic. EYES: PERRLA/EOMI, conjunctivae clear. NOSE: Normal no drainage EARS:TMS clear with good light reflex. THROAT: Pharynx clear, no exudate. NECK: Supple. No adenopathy, no masses. RESPIRATORY: Airway patent, respirations nonlabored. Clear to auscultation bilaterally, no rales, rhonchi, wheezing. CARDIOVASCULAR: Regular rate and rhythm without murmurs rubs or gallops. ABDOMINAL: Soft, nontender, nondistended, normal bowel sounds Rectal exam: Melena in diaper MUSCULOSKELETAL: Bilateral AKA NEURO: Alert. Cranial nerves II through XII intact. Good gait. Good coordination SKIN: Warm, dry. Normal Color Course Vital Signs Vital signs: Vital Signs Temperature 98.0 F 05/04/24 06:33 Pulse Rate 68 05/04/24 06:33 Respiratory Rate 16 05/04/24 06:33 Blood Pressure 129/35 L 05/04/24 06:33 Pulse Oximetry 99 05/04/24 06:33 Oxygen Delivery Room Air 05/04/24 06:33 Temperature 97.9 F 05/04/24 16:00 Pulse Rate 68 05/04/24 17:54 Respiratory Rate 12 05/04/24 16:00 Blood Pressure 90/40 L 05/04/24 16:00 Pulse Oximetry 100 05/04/24 16:00 Oxygen Delivery Room Air 05/04/24 09:17 Medical Decision Making MDM Narrative Medical decision making narrative: 69-year-old female present to the emergency department for evaluation for throwing up coffee-ground emesis. Patient was melena positive on the digital rectal exam. Hemoccult was done on this and it was positive. Patient is having no further emesis in the emergency department. Patient was ordered famotidine and Protonix. Patient id as currently afebrile with no leukocytosis and hemoglobin 11.2 which is higher than her baseline. Patient also has a creatinine of 2.1 which is higher than her baseline. This may be due to hemoconcentration. Patient was treated with a L of IV fluid then started on maintenance fluids. Case was discussed with GI and Dr. Dominguez will see the patient as consult. Patient was admitted to the IMU. C diff was ordered on the patient Hospitalist requested CT scan in this was done but not resulted prior to the patient going to the floor. Differential Diagnosis Differential Diagnosis: Upper GI bleed, C diff, diarrhea, dehydration, anemia Vital Signs Vital Signs: Vital Signs Temperature 98.0 F 05/04/24 06:33 Pulse Rate 68 05/04/24 06:33 Respiratory Rate 16 05/04/24 06:33 Blood Pressure 129/35 L 05/04/24 06:33 Pulse Oximetry 99 05/04/24 06:33 Oxygen Delivery Room Air 05/04/24 06:33 Temperature 97.9 F 05/04/24 16:00 Pulse Rate 68 05/04/24 17:54 Respiratory Rate 12 05/04/24 16:00 Blood Pressure 90/40 L 05/04/24 16:00 Pulse Oximetry 100 05/04/24 16:00 Oxygen Delivery Room Air 05/04/24 09:17 Lab Data Lab results reviewed: Yes I reviewed the patient's lab results. 05/04/24 12:29 05/04/24 08:24 Labs: Lab Results 05/04/24 05/04/24 05/04/24 Range/Units 08:21 08:24 08:27 WBC 7.5 (4.5-10.0) K/mm3 RBC 3.65 L (4.2-5.4) M/mm3 Hgb 11.2 L (12.0-15.0) g/dL Hct 35.5 L (37.0-47.0) % MCV 97.3 (80-100) fl MCH 30.7 (26-34) pg MCHC 31.5 L (32-36) g/dl RDW 17.2 H (11.5-14.5) % Plt Count 280 (150-375) k/mm3 MPV 9.7 (7.4-10.4) fl Immature Gran % (Auto) 0.3 (0-0.5) % Neut % (Auto) 77.8 H (45.5-73.1) % Lymph % (Auto) 13.6 L (18.3-44.2) % Dickens % (Auto) 5.2 (2.6-8.5) % Eos % (Auto) 2.4 (0-4.4) % Baso % (Auto) 0.7 (0.2-1.2) % Lymph # (Auto) 1.02 (0.9-3.2) K/mm3 Dickens # (Auto) 0.4 (0.1-0.6) K/mm3 Eos # (Auto) 0.2 (0-0.3) K/mm3 Baso # (Auto) 0.1 (0.0-0.1) K/mm3 Abs Immat Gran (auto) 0.02 (0.00-0.031) K/mm3 Absolute Neuts (auto) 5.8 (1.3-6.7) K/mm3 Absolute Nucleated RBC 0.000 (0.0-0.012) K/mm3 Nucleated RBC % 0.0 (0.0-0.2) % PT 15.8 H (11.1-14.7) Seconds INR 1.2 APTT 28.8 (22.3-36.8) Seconds Sodium 140 (137-145) mmol/L Potassium 4.2 (3.4-5.0) mmol/L Chloride 95 L (98-107) mmol/L Carbon Dioxide 31 H (22-30) mmol/L Anion Gap 14 H (4-12) mmol/L BUN 85 H D (7-17) mg/dL Creatinine 2.10 H (0.7-1.0) mg/dL Estim Creat Clear Calc 18 ml/min Estimated GFR 23 L (59 - ) Glucose 110 (65-110) mg/dL Lactic Acid 1.0 (0.7-2.0) mmol/L Calcium 9.8 (8.4-10.2) mg/dL Iron 55 (37-170) ug/dL TIBC 204 L (261-462) ug/dL % Saturation 27 (20-50) % Ferritin 581.00 H (11.1-264) ng/mL Total Bilirubin 1.1 (0.2-1.3) mg/dL AST 29 (14-36) U/L ALT 11 (6-35) U/L Alkaline Phosphatase 46 (38-126) U/L Total Protein 9.0 H (6.3-8.2) g/dL Albumin 3.9 (3.5-5.1) g/dL Blood Type O Positive Antibody Screen Negative Discharge Plan Discharge Clinical Impression: GI bleed, ABDIRASHID (acute kidney injury) Patient Disposition: Still a Patient Condition: Serious
--- NOTE | 2024-05-04 08:13 | PC.NURSE ---
pt had a large bowel movement. pt had liquid, black/green stool
[2024-05-04 08:29] LABS: Basophils Absolute Auto 0.1 K/mm3 (0.0-0.1); Basophils Percent Auto 0.7 % (0.2-1.2); Eosinophils Absolute Auto 0.2 K/mm3 (0-0.3); Eosinophils Percent Auto 2.4 % (0-4.4); Hematocrit 35.5 % (37.0-47.0); Hemoglobin 11.2 g/dL (12.0-15.0); Immature Granulocyte Absolute 0.02 K/mm3 (0.00-0.031); Immature Granulocyte Percent A 0.3 % (0-0.5); Lymphocytes Absolute Auto 1.02 K/mm3 (0.9-3.2); Lymphocytes Percent Auto 13.6 % (18.3-44.2); Mean Corpuscular HGB Conc 31.5 g/dl (32-36); Mean Corpuscular Hemoglobin 30.7 pg (26-34); Mean Corpuscular Volume 97.3 fl (80-100); Mean Platelet Volume 9.7 fl (7.4-10.4); Monocytes Absolute Auto 0.4 K/mm3 (0.1-0.6); Monocytes Percent Auto 5.2 % (2.6-8.5); Neutrophils Absolute Auto 5.8 K/mm3 (1.3-6.7); Neutrophils Percent Auto 77.8 % (45.5-73.1); Platelet Count Result 280 k/mm3 (150-375); Red Blood Count 3.65 M/mm3 (4.2-5.4); Red Cell Distribution Width 17.2 % (11.5-14.5); White Blood Count 7.5 K/mm3 (4.5-10.0)
--- OUTSIDE RECORDS SUMMARY | 2024-05-04 08:32 | XMS_ITS | Referral Summary ---
Author Organization [facility] Address [address] [place] [address] Care Team Providers Care Sole Rounding Machine Operator Name Role Phone Unavailable Primary Care Provider Unavailabl e Source Comments [facility],non-owned Affiliates and Associated Physician Practices is amultiple site organization consisting of ambulatory clinics and hospital sitesin [place], [place], [place] and [place]. This disclosure is being madepursuant to the Care Everywhere program and may not contain all information available regarding this patient. Last updated 17.[facility] Social History Tobacco Use Types Packs/Day Years Used Date Smoking Tobacco: Never Assessed Sex and Gender Information Value Date Recorded Sex Assigned at Not on file Gender Identity Not on file Sexual Orientation Not on file Plan of Treatment Not on file
--- OUTSIDE RECORDS SUMMARY | 2024-05-04 08:32 | XMS_ITS | Clinical Summary ---
Author Organization [facility] Address [address] [place] [address] Care Team Providers Care Homicide Investigator Name Role Phone Unavailable Primary Care Provider Unavailabl e Source Comments [facility],non-owned Affiliates and Associated Physician Practices is amultiple site organization consisting of ambulatory clinics and hospital sitesin [place], [place], [place] and [place]. This disclosure is being madepursuant to the Care Everywhere program and may not contain all information available regarding this patient. Last updated 17.[facility] Amind Social History Tobacco Use Types Packs/Day Years [...] 01/09/1973 DTAP/TDAP/TD VACCINES (1 - Tdap) 1974 PNEUMOCOCCAL VACCINE 50+ (1 of 1 - PCV) 2005 ZOSTER VACCINE (1 of 2) 2005 COVID-19 VACCINE ( - 2023-2 5 season) 2023 INFLUENZA VACCINE (#1) 2023 DEPRESSION SCREENING 03/13/2024 Respiratory Syncytial Virus (RSV) Vaccine Pt: or [...] patient's age to complete this topic MENINGOCOCCAL (Group B) VACCINE Aged Out No longer eligible based on patient's age to complete this topic MENINGOCOCCAL VACCINE Aged Out No kailey debbie eligible based on patient's age to complete this topic
--- OUTSIDE RECORDS SUMMARY | 2024-05-04 08:32 | XMS_ITS | Patient Health Summary ---
Author Organization [facility] Address [address] [place] [address] Care Team Providers Care Athletic Shoe Designer Name Role Phone Unavailable Primary Care Provider Unavailabl e Note from [facility],non-owned Affiliates and Associated Physician Practices is amultiple site organization consisting of ambulatory clinics and hospital sitesin [place], [place], [place] and [place]. This disclosure is being madepursuant to the Care Everywhere program and may not contain all information available regarding this patient. Last updated 17.[facility] Social History Tobacco Use Types Packs/Day [...] POINT OF CARE ORDERABLES [facility] POCT TESTING [address] [address]
--- OUTSIDE RECORDS SUMMARY | 2024-05-04 08:32 | XMS_ITS | Clinical Summary ---
Author Organization [facility] Address [address] [place] [address] Phone Care Team Providers Care Manager Inventory Control Name Role Phone Damon SwansonTesha DO Unavailable [phone] Zeke Puente MD Primary Care Provider [phone] Sarah Baldwin MD, Karl Romero Unavailable [phone] Arley Peña MD Unavailable [phone] Allergies Active Allergy Reactions Criticality Noted Date Comments Codeine Phosphate Nausea & Vomiting Low 10/08/2012 Medications amLODIPine (NORVASC) 10 mg tablet Take 1 tablet (10 mg total) by mouth daily Active atorvastatin (LIPITOR) 40 mg tablet Take 1 tablet (40 mg total) by mouth daily Active levothyroxine (SYNTHROID) 100 mcg tablet Take 1 tablet (100 mcg total) by mouth ice skater before breakfast 30 tablet 1 1 Active [...] (06/21/2020): Added automatically from request for surgery [id number] Sepsis 11/20/2019 Acute hematogenous osteomyelitis of right foot 0 11/20/2019 PVD (peripheral vascular disease) 11/20/2019 Anemia 11/20/2019 COVID-19 11/20/2019 Hypothyroidism 11/20/2019 Hyperlipidemia 11/20/2019 Pressure injury of sacral region, stage 4 2019 Moderate malnutrition (CMS/HCC) 11/07/2019 Malignant neoplasm of upper- 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, estrogen receptor negative 11/13/2017 Dementia Diabetes mellitus Hypertension Encounters Date Type Department Care Team Description 03/03/2024 9:19 AM NAVAL SCIENCE TEACHER - 03/03/2024 11:59 PM NAVAL SCIENCE TEACHER Hospital Encounter [address] [address] Discharge Disposition: Discharge to home or self care from Last 3 Months Surgical History Surgery Date Site/Laterality Comments HERNIA [...] often do you attend chur ch or mosque services? Never 06/27/2022 Do you belong to any clubs o r organizations such as mandaeism groups, unions, fraternal or athletic groups, or [...] on file Legal Sex Female 12:30 PM NAVAL SCIENCE TEACHER Gender Identity Not on file Sexual Orientation Not on file Obstetrics History Last Filed Vital Signs Vital Sign Reading Time Taken Comments Blood Pressure 199/84 09/02/2023 8:45 PM CDT Pulse 76 09/02/2023 8:45 PM CDT Temperature 36.1 C (96.9 F) 09/02/2023 10:18 AM CDT Respiratory Rate 17 09/02/2023 3:20 PM CDT [...] Dilated Eye Exam 1955 Foot Exam 1955 Hepatitis B Screening 1973 Pneumococcal vaccine 65+ (1 of 2 - PCV) 1974 Zoster Vaccine (2 of 3) 05/16/2017 03/21/19 18, 01/24/2017, 01/02/2017, Additional history exists Breast Cancer Screening-Mammogram 12/26/2017 12/26/2016, 12/18/2015, 11/07/2014, Additional history exists Depression Screening 06/22/2019 06/21/2018 Well Visit 65+ 01/15/2020 Lipid Panel 06/28/2020 06/29/2019 Hemoglobin A1C 12/18/2020 06/18/2020, 0809/2019, 06/21/2018, Additional history exists Fall Risk Assessment 06/28/2023 06/27/2022, 06/22/19 19 Influenza Vaccine (#1) 2023 8, 01/24/2017, 01/02/2017, Additional history exists eGFR 09/01/2024 09/02/2023, 06/11, 06/27/2022, Additional history exists DTaP/Tdap/Td Vaccine (2 - Td or Tdap) 06/27/2029 06/28/2019 Procedures Procedure Name Priority Date/Time Associated Diagnosis Comments VANCOMYCIN LEVEL TROUGH Routine 03/03/2024 6:15 AM NAVAL SCIENCE TEACHER EGFR STAT 09/02/2023 12:08 PM CDT HEMOGLOBIN A1C Routine 06/18/2020 5:43 AM CDT SCREENING MAMMOGRAM BILATERAL W ZAC Routine 12/26/2016 10:50 AM CDT from Last 3 Months or Most Recently Relevant to Health Maintenance Results * Vancomycin level trough (03/03/2024 6:15 AM NAVAL SCIENCE TEACHER) Vancomycin trough 19.9 10.0 - 20.0 mcg/mL Blood 03/03/2024 6:15 AM NAVAL SCIENCE TEACHER 03/03/2024 9:54 AM NAVAL SCIENCE TEACHER India Singh NP LAB BLOOD ORDERABLES Debbie valero Result Performing Organization Address City/State/[facility] Co de Phone Number ASHLEIGH [address] Department [place] [address] * eGFR (09/02/2023 12:08 PM CDT) eGFR 80 >=60 mL/min/1. 73 m2 Comment: Interpretive Data Reference Interval Normal >/= 90 mL/min/1.73m2 Mildly decreased* 60 - 89 mL/min/1.73m2 Mildly to moderately decreased 45 - 59 mL/min/1.73m2 Moderately to severely decreased 30 - 44 mL/min/1.73m2 Severely decreased 15 - 29 mL/min/1.73m2 Kidney Failure < 15 mL/min/1.73m2 *Relative to young adult level Estimated glomerular [...] ORDERABLE S Final Result Performing Organization Address [facility] Co de Phone Number ASHLEIGH MCGINNIS (MEGHANA) [address] [facility] Department [place] [address] * (ABNORMAL) Hemoglobin A1c (06/18/2020 5:43 AM CDT) Hgb A1C 8.0(H) 4.0 - 5.6 % [facility] Estimated Average Glucose 183 mg/dL [facility] Comment: The ADA recommends reporting an estimated Average Glucose (eAG) with all Hemoglobin A1c results using the equation derived from a study of 507 normal and diabetic adults. Minority populations were underrepresented and children were not included. (Diabetes Care 31:5009-2797, 2007). The eAG is not equivalent to a fasting glucose. Blood specimen (specimen) 06/18/2020 5:43 AM CDT 06/18/2020 6:23 AM CDT us Summer Anguiano MD LAB BLOOD ORDERABLES Final Result Performing Organization Address [facility] Co de Phone Number [facility] [address] Department [place] [address] * Screening Mammogram Bilateral W Zac (12/26/2016 10:50 AM CDT) Anatomical Region Laterality Modality Breast Bilateral Mammography 12/26/2016 10:5 0 AM CDT Impressions 12/26/2016 11:38 AM CDT BI-RAD 2 BENIGN There is no mammographic evidence of malignancy. A 1 year screening mammogram is recommended. The patient has been or will be contacted. The patient will be entered into a reminder system with a target due date of 1 year for her next screening exam. Electronically signed by: Edwar Deng M.D., md/:12/26/2016 11:34:53 Hogshead Hand: Layne Iniguez RT (R)(M), [facility] letter sent: Normal Exam Reading location: [facility] BI-RADS: 2 Benign [EOD] Narrative 12/26/2016 11:38 AM CDT - MG BILATERAL DIGITAL SCREENING MAMMOGRAM 3D/2D WITH MEDIOLATERAL OBLIQUE CRANIOCAUDAL: 12/26/2016 The study was acquired using full field digital technology and interpreted from soft copy. 2D digital mammographic views, as well as 3D digital tomosynthesis were performed in the CC and MLO projections. CLINICAL: Routine mammogram. Denies any problems today. Personal history of bilateral breast cancer with lumpectomies. No family history of breast cancer. COMPARISONS: Comparison is made to exams dated: 12/18/2015 mammogram, 11/07/2014 mammogram, and 10/30/2013 mammogram - [facility]. BREAST TISSUE: The tissue of both breasts is almost entirely fatty. FINDINGS: Postoperative changes involving both breasts demonstrate no significant interval change. A round hyperdense mass is again seen within [...] mammogram, and 10/30/2013 mammogram - [facility]. BREAST TISSUE: The tissue of both [...] signed by: Edwar Deng M.D., md/:12/26/2016 11:34:53 Hogshead Hand: Layne VIVEROS (R)(M), [facility] letter sent: Normal Exam Reading location: [facility] BI-RADS: 2 Benign [EOD] Damon Swanson DO IMG MAMMO PROCEDURES Final R esult from Last 3 Months or Most Recently Relevant to Health Maintenance Insurance MEDICARE [employer] MEDICARE MEDICARE [facility] Advance Directives For more information, please contact: [phone] Documents on File Type Date Recorded Patient Lab Head Expl anation ADVANCE DIRECTIVE 09/04/2023 2:51 PM POLST - Phys Order for PT Preferences ADVANCE DIRECTIVE 02/28/2019 12:00 AM POW ER OF SYSTEM OPERATOR FINANCIAL/MEDICAL * Full Code (Latest Code Status [...] 12:51 AM 11/20/2019 10:35 PM Care Teams Manager Inventory Control Relationship Specialty Start Date End Date Zeke Puente MD [address] [place] [address] PCP - General 12/02/18 Damon Swanson DO [address] [place] [id number] Medical Oncologist/R D Engineer Hematology and Oncology 10/25/17 Karl Smith Jr., MD [address] [place] [address] Surgeon General Surgery 11/07/19 Arley Peña MD [address] [address] Surgeon General Surgery 06/26/20
--- OUTSIDE RECORDS SUMMARY | 2024-05-04 08:32 | XMS_ITS | Referral Summary ---
Author Organization [facility] Address [address] [place] [address] Phone Care Team Providers Care Fork Truck Driver Name Role Phone KikiDamon dale DO Unavailable Zeke Puente MD Primary Care Provider Sarah Baldwin MD, Karl Romero Unavailable Arley Peña MD Unavailable [phone] Encounters Date Type Department Care Team Description 03/03/2024 9:19 AM RISK ANALYST - 03/03/2024 11:59 PM RISK ANALYST Hospital Encounter [place] [id number] Discharge Disposition: Discharge to home or self care from Last 3 Months Allergies Active Allergy Reactions Criticality Noted Date Comments Codeine Phosphate Nausea & Vomiting Low 10/08/2012 Medications amLODIPine (NORVASC) 10 mg tablet Take 1 tablet (10 mg total) by mouth daily Active atorvastatin (LIPITOR) 40 mg tablet Take 1 tablet (40 mg total) by mouth daily Active levothyroxine (SYNTHROID) 100 mcg tablet Take 1 tablet (100 mcg total) by mouth early childhood coordinator before breakfast 30 tablet 1 1 Active [...] (06/21/2020): Added automatically from request for surgery [id number] Sepsis 11/20/2019 Acute hematogenous osteomyelitis of right [...] often do you attend chur ch or nondenominational services? Never 06/27/2022 Do you belong to any clubs o r organizations such as jainism groups, unions, fraternal or athletic groups, or [...] on file Legal Sex Female 12:30 PM RISK ANALYST Gender Identity Not on file Sexual [...] VANCOMYCIN LEVEL TROUGH Routine 03/03/2024 6:15 AM RISK ANALYST EGFR STAT 09/02/2023 12:08 PM CDT HEMOGLOBIN A1C Routine 06/18/2020 5:43 AM CDT SCREENING MAMMOGRAM BILATERAL W ZAC Routine 12/26/2016 10:50 AM CDT from Last 3 Months or Most Recently Relevant to Health Maintenance Results * Vancomycin level trough (03/03/2024 6:15 AM RISK ANALYST) Vancomycin trough 19.9 10.0 - 20.0 mcg/mL Blood 03/03/2024 6:15 AM RISK ANALYST 03/03/2024 9:54 AM RISK ANALYST us India Singh NP LAB BLOOD ORDERABLES Debbie valero Result [facility] [address] Department [place] [address] * eGFR (09/02/2023 12:08 PM CDT) eGFR [...] ORDERABLE S Final Result Performing Organization Address City/[facility] Co de Phone Number [facility] [address] [facility] Department [place] [address] * (ABNORMAL) Hemoglobin A1c (06/18/2020 5:43 AM CDT) Hgb A1C 8.0(H) 4.0 - 5.6 % [facility] Estimated Average Glucose 183 mg/dL [facility] Comment: The ADA recommends reporting an estimated Average Glucose (eAG) with all Hemoglobin A1c results using the equation derived from a study of 507 normal and diabetic adults. Minority populations were underrepresented and children were not included. (Diabetes Care 31:7157-6909, 2008). The eAG is not equivalent to a fasting glucose. Blood specimen (specimen) 06/18/2020 5:43 AM CDT 06/18/2020 6:23 AM CDT us Summer Anguiano MD LAB BLOOD ORDERABLES Final Result [facility] [address] Department [place] [address] * Screening Mammogram Bilateral W Zac (12/26/2016 [...] signed by: Edwar Deng M.D., md/:12/26/2016 11:34:53 Primer Assembler: Layne Iniguez RT (R)(Nathan), [facility] letter sent: Normal Exam Reading location: [facility] BI-RADS: 2 Benign [EOD] Narrative 12/26/2016 [...] mammogram, 11/07/2014 mammogram, and 10/30/2013 mammogram - [facility]. BREAST TISSUE: The tissue of [...] 12/18/2015 mammogram,11/07/2014 mammogram, and 10/30/2013 mammogram - [facility]. BREAST TISSUE: The tissue of [...] signed by: Edwar Deng M.D., md/:12/26/2016 11:34:53 Primer Assembler: Layne Iniguez RT (R)(Nathan), [facility] letter sent: Normal Exam Reading location: [facility] BI-RADS: 2 Benign [EOD] Damon Swanson DO IMG MAMMO PROCEDURES Final R esult from Last 3 Months or Most Recently Relevant to Health Maintenance Insurance MEDICARE [facility] MEDICARE MEDICARE [facility] Advance Directives For more information, please contact: [phone] Documents on File Type Date Recorded Patient Coal Yard Supervisor Expl anation ADVANCE DIRECTIVE 09/04/2023 2:51 PM POLST - Phys Order for PT Preferences ADVANCE DIRECTIVE 02/28/2019 12:00 AM POW ER OF [employer] CONSULTANT FINANCIAL/MEDICAL * Full Code (Latest Code Status [...] 12:51 AM 11/20/2019 10:35 PM Care Teams Fork Truck Driver Relationship Specialty Start Date End Date Zeke Puente MD [address] [place] [address] PCP - General 12/02/18 Damon Swanson DO [address] [place] [id number] Medical Oncologist/Survey Research Professor Hematology and Oncology 10/25/17 Karl Smith Jr., MD [address] [place] [address] Surgeon General Surgery 11/07/19 Arley Peña MD [address] [place] [address] Surgeon General Surgery 06/26/20
[2024-05-04] MEDS: SODIUM CHLORIDE 0.9% IV 1,000 ML 999 ML IV CONT (08:36)
[2024-05-04] MEDS: FAMOTIDINE 20 MG/2 ML VIAL IV PUSH (08:36)
[2024-05-04] MEDS: PANTOPRAZOLE SODIUM IV 40 MG VIAL 80 MG IV PUSH (08:40)
[2024-05-04 08:45] LABS: Alanine Aminotransferase 11 U/L (6-35); Albumin Level 3.9 g/dL (3.5-5.1); Alkaline Phosphatase 46 U/L (38-126); Anion Gap 14 mmol/L (4-12); Aspartate Amino Transferase 29 U/L (14-36); Bilirubin,Total 1.1 mg/dL (0.2-1.3); Blood Urea Nitrogen 85 mg/dL (7-17); Calcium 9.8 mg/dL (8.4-10.2); Carbon Dioxide 31 mmol/L (22-30); Chloride 95 mmol/L (98-107); Estimated CRCL calculation 18 ml/min; Estimated Glomerular Filt Rate 23; Glucose 110 mg/dL (65-110); Potassium 4.2 mmol/L (3.4-5.0); Sodium 140 mmol/L (137-145)
[2024-05-04 08:53] LABS: INR 1.2; Prothrombin Time 15.8 Seconds (11.1-14.7)
[2024-05-04 08:54] LABS: Partial Thromboplastin Time 28.8 Seconds (22.3-36.8)
--- NOTE | 2024-05-04 09:02 | PC.NURSE ---
pt had another moderate size bowel movement. pt has some skin breakdown on her bottom
[2024-05-04] MEDS: PANTOPRAZOLE SODIUM IV 80 MG in SODIUM CHLORIDE 0.9% IV 500 ML 50 MG IV CONT (09:26)
[2024-05-04] MEDS: SODIUM CHLORIDE 0.9% IV 1,000 ML 250 ML IV CONT (09:29)
--- NOTE | 2024-05-04 10:04 | PC.NURSE ---
pt had another large bowel movement. pt BM was green/black. pt refused rectal tube. pt has wounds on her bottom and L inside of her thigh
--- NOTE | 2024-05-04 10:16 | PC.NURSE ---
this RN called pt facility, [facility], at this time to let the facility know that the pt will be admitted to the hospital. this RN spoke to Jeffry
[2024-05-04 10:46] LABS: Iron 55 ug/dL (37-170)
[2024-05-04 10:47] LABS: Toxigenic C. Diff POSITIVE (NEGATIVE)
[2024-05-04 10:55] LABS: Percent Iron Saturation 27 % (20-50)
--- NOTE | 2024-05-04 11:16 | PC.NURSE ---
Patient arrived from ER. Telemetry applied. Patient put on C DIFF precautions.
--- NOTE | 2024-05-04 11:38 | PM.IMHP ---
H&P: HPI History of Present Illness Date/Time: 05/04/24 11:38 Chief Complaint: Coffee gorund emesis and black stool Narrative: 69-year-old female past medical history of systolic heart failure, bilateral above-knee amputation, chronic indwelling Kaplan catheter, type 2 diabetes, recurrent C diff and hx of ESBL who presented to the ER on account coffee ground emesis and black stools. Patient is a poor historian however noted she started vomiting many times last night consisting in black fluids, also dark loose stools. denies any lightheadedness, no chest pain and no abd pain. She noted she takes ibuprofen occasionally for pain. ER eval notable for BP 98/53, HR 65, RR 15. labs notable for Cr 2.1 from 1.2, BUN 85, hb 11.2, C diff positive. CT AP showed large gallstone in the rectum with constipation and stercoral colitis, chronic cystitis, with left-sided ascending urinary tract with mild left hydronephrosis with gas in the collecting system, new tree in bud opacities in RLL . Chronic osteomyelitits at bilateral pubic bones. GI was consutled and patient started on protonix prior to admission Review of Systems Review of Systems: Other systems reviewed and negative except as noted in the history above. [facility] Past Medical History Medical History (Updated 05/04/24 @ 12:25 by Kenneth Lamar MD) Stercoral colitis Coffee ground emesis Urinary tract infection due to extended-spectrum beta lactamase (ESBL) producing Escherichia coli Type 2 diabetes mellitus Hypertension C. difficile diarrhea (01/2024) Gastroesophageal reflux disease History of breast cancer Dyslipidemia Thyroid cancer Hyperlipidemia Peripheral vascular disease Anemia Non-STEMI (non-ST elevated myocardial infarction) Combined systolic and diastolic congestive heart failure echocardiogram 12/06/2021: Severely reduced right ventricular systolic function with EF of 20-25%, moderate left ventricular chamber enlargement, moderate left atrial enlargement, grade 2 diastolic dysfunction Neuropathy Psychiatric disorder Dementia Surgical History Surgical History History of above-knee amputation of both lower extremities History of thyroid surgery History of right breast implant Patient reports that it was radiation implant History of lumpectomy of left breast Family History Family History Mother Family history of type 2 diabetes mellitus, Onset Age: 55 Father Acute myocardial infarction, Onset Age: 58 Social History Social History Social History: Surrogate medical decision maker: Ailyn Turner, daughter. Code status: Do not resuscitate with selective treatment (paperwork accompanies the patient). Smoking status: Unknown if ever smoked Second hand tobacco smoke exposure: No Alcohol intake: unknown Substance use: unknown Substance use type: does not use Do You Feel Safe in your Home?: Yes Lack of Transportation: No Lack of Food: Never True Current Housing: I Have Housing Concerned About Future Housing: No Difficulty Paying Gas/Electric Bills: No Difficulty Paying for Meds: No Currently Unemployed: No Education: High School Diploma/GED Difficulty w/ Childcare or Family Care: No Spiritual care concerns: No Meds Home Medications and Allergies Home Medications ?Medication ?Instructions ?Recorded ?Confirmed ?Type atorvastatin 40 mg tablet 40 mg PO HS 12/05/21 05/04/24 History levothyroxine 100 mcg tablet 100 mcg PO DAILY 12/05/21 05/04/24 History gabapentin 300 mg capsule 300 mg PO TID 05/16/22 05/04/24 History potassium chloride 10 mEq 10 meq PO DAILY 05/16/22 05/04/24 History capsule,extended release furosemide 40 mg tablet (Lasix) 40 mg PO DAILY 01/10/24 05/04/24 History carvedilol 6.25 mg tablet (Coreg) 6.25 mg PO BID 01/30/24 05/04/24 History naloxone 4 mg/actuation nasal spray 1 spray intranasal Q2M PRN OPIOD 01/30/24 05/04/24 History OVERDOSE sacubitril 24 mg-valsartan 26 mg 1 tablet PO Q12H 01/30/24 05/04/24 History tablet (Entresto) tramadol 50 mg tablet 50 mg PO Q8H PRN pain 01/30/24 05/04/24 History insulin aspart U-100 100 unit/mL See Rx Instructions .Route 02/07/24 05/04/24 Rx subcutaneous solution (Novolog .COMPLEX #10 mL U-100 Insulin aspart) magnesium citrate (Citroma oral 150 ml PO DAILY PRN Constipation 02/15/24 05/04/24 History solution) magnesium hydroxide 400 mg/5 mL 400 mg PO HS PRN Constipation 02/15/24 05/04/24 History oral suspension (Milk of Magnesia) omeprazole 20 mg capsule,delayed 20 mg PO DAILY 02/15/24 05/04/24 History release sodium phosphates 19 gram-7 118 ml RECTAL DAILY PRN 02/15/24 05/04/24 History gram/118 mL enema (Fleet Enema) Constipation ferrous sulfate 325 mg (65 mg 325 mg PO BID #90 tabs 02/29/24 05/04/24 Rx iron) tablet,delayed release calcium 600 mg (as 1 cap PO DAILY #30 caps 03/01/24 05/04/24 Rx carbonate)-vitamin D3 5 mcg (200 unit) capsule (Calcium 600 + D(3)) empagliflozin 10 mg tablet 5 mg (1/2 x 10 mg) PO DAILY #90 03/01/24 05/04/24 Rx (Jardiance) tabs acetaminophen 325 mg capsule 325 mg PO Q4H PRN pain 05/04/24 05/04/24 History calcium 600 mg (as 600 cap PO DAILY 05/04/24 05/04/24 History carbonate)-vitamin D3 5 mcg (200 unit) capsule (Calcium 600 + D(3)) calcium alginate 2 X 2 bandage 05/04/24 05/04/24 History collagen (bovine) 100 % topical 1 applic topical DAILY 05/04/24 05/04/24 History powder cyanocobalamin (vitamin B-12) 1,000 mcg PO DAILY 05/04/24 05/04/24 History 1,000 mcg capsule multivitamin,tx-minerals 1 cap PO DAILY 05/04/24 05/04/24 History (Multi-Vitamin HP/Minerals capsule) silver sulfadiazine 1 % topical 1 applic topical DAILY sacrum wound 05/04/24 05/04/24 History cream (Silvadene) spironolactone 25 mg tablet 25 mg PO DAILY 05/04/24 05/04/24 History Allergies Allergy/AdvReac Type Severity Reaction Status Date / Time codeine Allergy Unknown Verified 05/04/24 06:39 Vital Signs Vital Signs - 24 hr 05/04/24 06:33 05/04/24 06:57 05/04/24 07:00 Temperature 98.0 F Pulse Rate 68 70 66 Respiratory Rate 16 17 13 Blood Pressure 129/35 L 137/31 L 142/35 H Pulse Oximetry 99 100 100 Oxygen Delivery Room Air 05/04/24 07:16 05/04/24 07:31 05/04/24 07:46 Temperature Pulse Rate 66 66 66 Respiratory Rate 15 10 L 16 Blood Pressure 139/49 L 122/33 L 99/28 L Pulse Oximetry 100 Oxygen Delivery 05/04/24 08:00 05/04/24 08:04 05/04/24 08:24 Temperature Pulse Rate 72 69 65 Respiratory Rate 18 18 14 Blood Pressure 81/53 L 92/33 L 79/40 L Pulse Oximetry 99 Oxygen Delivery 05/04/24 08:30 05/04/24 08:31 05/04/24 08:43 Temperature Pulse Rate 64 64 62 Respiratory Rate 14 16 15 Blood Pressure 71/30 L 87/28 L 89/42 L Pulse Oximetry 97 97 97 Oxygen Delivery 05/04/24 08:45 05/04/24 08:45 05/04/24 09:00 Temperature Pulse Rate 64 63 71 Respiratory Rate 15 19 Blood Pressure 90/42 L 95/53 L Pulse Oximetry 96 98 Oxygen Delivery 05/04/24 09:17 05/04/24 09:28 05/04/24 09:31 Temperature Pulse Rate 65 65 Respiratory Rate 16 16 Blood Pressure 100/41 L 94/53 L Pulse Oximetry 98 99 98 Oxygen Delivery Room Air 05/04/24 09:32 05/04/24 09:46 05/04/24 10:04 Temperature Pulse Rate 65 68 69 Respiratory Rate 15 16 18 Blood Pressure 94/53 L 109/65 88/59 L Pulse Oximetry 99 100 Oxygen Delivery 05/04/24 10:12 05/04/24 10:16 Temperature Pulse Rate 64 Respiratory Rate 15 Blood Pressure 83/41 L 98/36 L Pulse Oximetry Oxygen Delivery Exam Narrative: General: alert and comfortable Eyes: EOMI, PERRLA ENNT External ears normal, Neck is supple, no masses, Respiratory systems: Clear to auscultation Cardiovascular S1, S2, normal rhythm, no murmur, rub, or gallop; no thrill or palpable murmurs on palpation. Gastrointestinal: soft, non-tender, and non-distended abdomen with no masses; BS present Skin: no rash, lesions, ulcerations, subcutaneous nodules or induration Musculoskeletal: Bilateral AKA Neurologic: Alert and oriented x3, non focal Mental Status Exam: normal affect H&P: Results Labs Labs: Short CBC 05/04/24 Range/Units 08:24 WBC 7.5 (4.5-10.0) K/mm3 Hgb 11.2 L (12.0-15.0) g/dL Hct 35.5 L (37.0-47.0) % Plt Count 280 (150-375) k/mm3 BMP 05/04/24 08:24 Sodium 140 Potassium 4.2 Chloride 95 L Carbon Dioxide 31 H BUN 85 H D Creatinine 2.10 H Glucose 110 Calcium 9.8 Liver Function 05/04/24 Range/Units 08:24 Total Bilirubin 1.1 (0.2-1.3) mg/dL AST 29 (14-36) U/L ALT 11 (6-35) U/L Alkaline Phosphatase 46 (38-126) U/L Albumin 3.9 (3.5-5.1) g/dL Assessment and Plan Assessment and plan (1) GI bleed: Code(s): K92.2 - Gastrointestinal hemorrhage, unspecified Status: Acute (2) Colitis: Code(s): K52.9 - Noninfective gastroenteritis and colitis, unspecified Status: Acute (3) Acute kidney injury: Code(s): N17.9 - Acute kidney failure, unspecified Status: Acute Plan GI bleed Patient presented with hematemesis and melena stool Continue Protonix Continue IV fluids, monitor H&H. GI consult. Recurrent C diff diarrhea Patient has a history of recurrent C diff. Started on oral vancomycin, likely will be on a long taper, GI or consulted. Continue IVF and monitor Right lower lobe pneumonia CT reviewed. Blood culture MRSA ordered ABDIRASHID dehydration from diarrhea and vomiting Continue above treatment monitor renal function Left ascending left-sided urinary tract infection with hydronephrosis Chronic cystitis On Zosyn Urine culture pending urology consulted S/p AKA DVT prophylaxis, Anticoagulation on hold due to GI bleed DNR Surrogate decision maker Mercedes Davidson Daughter
--- NOTE | 2024-05-04 12:21 | P.CONGI_ITS ---
Assessment and Plan Assessment and plan (1) Coffee ground emesis: Code(s): K92.0 - Hematemesis Status: Acute Assessment and Plan: hgb 11 and it is actually higher than baseline iv protonix probably egd early next week ok to have liquid diet (2) Stercoral colitis: Code(s): K52.89 - Other specified noninfective gastroenteritis and colitis Status: Acute Assessment and Plan: also recurrent c diff (3) C. difficile diarrhea: Onset Date: 01/2024 Code(s): A04.72 - Enterocolitis due to Clostridium difficile, not specified as recurrent Status: Acute Assessment and Plan: oral vancomycin (4) Osteomyelitis: Code(s): M86.9 - Osteomyelitis, unspecified Status: Acute Assessment and Plan: chronic finding also abx for possible pneumonia (5) S/P AKA (above knee amputation) bilateral: Code(s): Z89.611 - Acquired absence of right leg above knee; Z89.612 - Acquired absence of left leg above knee Status: Acute (6) Acute metabolic encephalopathy: Code(s): G93.41 - Metabolic encephalopathy Status: Acute GI Consult Note Consult date/time: 05/04/24 12:21 Reason for consult: coffee ground emesis HPI: rIis Pascual is a 69 year old femalewith past medical history of systolic heart failure, bilateral above-knee amputation, chronic indwelling Kaplan catheter, type 2 diabetes, recurrent C diff and hx of ESBL who presented to the ER with coffee ground emesis and black stools. She is a poor historian and history obtained from records. Staff noted she started vomiting many times last night consisting with coffee ground, also had greenish liquid stool. She is awake but not interacting much. Labs Cr 2.1 from 1.2, BUN 85, hb 11.2 (baseline 8-9), C diff positive. CT AP showed large gallstone in the rectum with constipation and stercoral colitis, chronic cystitis, with left-sided ascending urinary tract with mild left hydronephrosis with gas in the collecting system, new tree in bud opacities in RLL . Chronic osteomyelitits at bilateral pubic bones. Started on iv protonix, oral vancomycin and zosyin for possible pneumonia. Review of Systems 2 Review of Systems: ROS unobtainable: Yes unobtainable due to mental status PMFSH Past Medical History Medical History (Updated 05/04/24 @ 12:25 by Kenneth Lamar MD) Stercoral colitis Coffee ground emesis Urinary tract infection due to extended-spectrum beta lactamase (ESBL) producing Escherichia coli Type 2 diabetes mellitus Hypertension C. difficile diarrhea (01/2024) Gastroesophageal reflux disease History of breast cancer Dyslipidemia Thyroid cancer Hyperlipidemia Peripheral vascular disease Anemia Non-STEMI (non-ST elevated myocardial infarction) Combined systolic and diastolic congestive heart failure echocardiogram 12/06/2021: Severely reduced right ventricular systolic function with EF of 20-25%, moderate left ventricular chamber enlargement, moderate left atrial enlargement, grade 2 diastolic dysfunction Neuropathy Psychiatric disorder Dementia Surgical History Surgical History History of above-knee amputation of both lower extremities History of thyroid surgery History of right breast implant Patient reports that it was radiation implant History of lumpectomy of left breast Family History Family History Mother Family history of type 2 diabetes mellitus, Onset Age: 55 Father Acute myocardial infarction, Onset Age: 58 Social History Social History Social History: Surrogate medical decision maker: Ailyn Turner, daughter. Code status: Do not resuscitate with selective treatment (paperwork accompanies the patient). Smoking status: Unknown if ever smoked Second hand tobacco smoke exposure: No Alcohol intake: unknown Substance use: unknown Substance use type: does not use Do You Feel Safe in your Home?: Yes Lack of Transportation: No Lack of Food: Never True Current Housing: I Have Housing Concerned About Future Housing: No Difficulty Paying Gas/Electric Bills: No Difficulty Paying for Meds: No Currently Unemployed: No Education: High School Diploma/GED Difficulty w/ Childcare or Family Care: No Spiritual care concerns: No Meds Home Medications and Allergies Home Medications ?Medication ?Instructions ?Recorded ?Confirmed ?Type atorvastatin 40 mg tablet 40 mg PO HS 12/05/21 05/04/24 History levothyroxine 100 mcg tablet 100 mcg PO DAILY 12/05/21 05/04/24 History gabapentin 300 mg capsule 300 mg PO TID 05/16/22 05/04/24 History potassium chloride 10 mEq 10 meq PO DAILY 05/16/22 05/04/24 History capsule,extended release furosemide 40 mg tablet (Lasix) 40 mg PO DAILY 01/10/24 05/04/24 History carvedilol 6.25 mg tablet (Coreg) 6.25 mg PO BID 01/30/24 05/04/24 History naloxone 4 mg/actuation nasal spray 1 spray intranasal Q2M PRN OPIOD 01/30/24 05/04/24 History OVERDOSE sacubitril 24 mg-valsartan 26 mg 1 tablet PO Q12H 01/30/24 05/04/24 History tablet (Entresto) tramadol 50 mg tablet 50 mg PO Q8H PRN pain 01/30/24 05/04/24 History insulin aspart U-100 100 unit/mL See Rx Instructions .Route 02/07/24 05/04/24 Rx subcutaneous solution (Novolog .COMPLEX #10 mL U-100 Insulin aspart) magnesium citrate (Citroma oral 150 ml PO DAILY PRN Constipation 02/15/24 05/04/24 History solution) magnesium hydroxide 400 mg/5 mL 400 mg PO HS PRN Constipation 02/15/24 05/04/24 History oral suspension (Milk of Magnesia) omeprazole 20 mg capsule,delayed 20 mg PO DAILY 02/15/24 05/04/24 History release sodium phosphates 19 gram-7 118 ml RECTAL DAILY PRN 02/15/24 05/04/24 History gram/118 mL enema (Fleet Enema) Constipation ferrous sulfate 325 mg (65 mg 325 mg PO BID #90 tabs 02/29/24 05/04/24 Rx iron) tablet,delayed release calcium 600 mg (as 1 cap PO DAILY #30 caps 03/01/24 05/04/24 Rx carbonate)-vitamin D3 5 mcg (200 unit) capsule (Calcium 600 + D(3)) empagliflozin 10 mg tablet 5 mg (1/2 x 10 mg) PO DAILY #90 03/01/24 05/04/24 Rx (Jardiance) tabs acetaminophen 325 mg capsule 325 mg PO Q4H PRN pain 05/04/24 05/04/24 History calcium 600 mg (as 600 cap PO DAILY 05/04/24 05/04/24 History carbonate)-vitamin D3 5 mcg (200 unit) capsule (Calcium 600 + D(3)) calcium alginate 2 X 2 bandage 05/04/24 05/04/24 History collagen (bovine) 100 % topical 1 applic topical DAILY 05/04/24 05/04/24 History powder cyanocobalamin (vitamin B-12) 1,000 mcg PO DAILY 05/04/24 05/04/24 History 1,000 mcg capsule multivitamin,tx-minerals 1 cap PO DAILY 05/04/24 05/04/24 History (Multi-Vitamin HP/Minerals capsule) silver sulfadiazine 1 % topical 1 applic topical DAILY sacrum wound 05/04/24 05/04/24 History cream (Silvadene) spironolactone 25 mg tablet 25 mg PO DAILY 05/04/24 05/04/24 History Allergies Allergy/AdvReac Type Severity Reaction Status Date / Time codeine Allergy Unknown Verified 05/04/24 06:39 Vital Signs Vital Signs - 24 hr 05/04/24 06:33 05/04/24 06:57 05/04/24 07:00 Temperature 98.0 F Pulse Rate 68 70 66 Respiratory Rate 16 17 13 Blood Pressure 129/35 L 137/31 L 142/35 H Pulse Oximetry 99 100 100 Oxygen Delivery Room Air 05/04/24 07:16 05/04/24 07:31 05/04/24 07:46 Temperature Pulse Rate 66 66 66 Respiratory Rate 15 10 L 16 Blood Pressure 139/49 L 122/33 L 99/28 L Pulse Oximetry 100 Oxygen Delivery 05/04/24 08:00 05/04/24 08:04 05/04/24 08:24 Temperature Pulse Rate 72 69 65 Respiratory Rate 18 18 14 Blood Pressure 81/53 L 92/33 L 79/40 L Pulse Oximetry 99 Oxygen Delivery 05/04/24 08:30 05/04/24 08:31 05/04/24 08:43 Temperature Pulse Rate 64 64 62 Respiratory Rate 14 16 15 Blood Pressure 71/30 L 87/28 L 89/42 L Pulse Oximetry 97 97 97 Oxygen Delivery 05/04/24 08:45 05/04/24 08:45 05/04/24 09:00 Temperature Pulse Rate 64 63 71 Respiratory Rate 15 19 Blood Pressure 90/42 L 95/53 L Pulse Oximetry 96 98 Oxygen Delivery 05/04/24 09:17 05/04/24 09:28 05/04/24 09:31 Temperature Pulse Rate 65 65 Respiratory Rate 16 16 Blood Pressure 100/41 L 94/53 L Pulse Oximetry 98 99 98 Oxygen Delivery Room Air 05/04/24 09:32 05/04/24 09:46 05/04/24 10:04 Temperature Pulse Rate 65 68 69 Respiratory Rate 15 16 18 Blood Pressure 94/53 L 109/65 88/59 L Pulse Oximetry 99 100 Oxygen Delivery 05/04/24 10:12 05/04/24 10:16 Temperature Pulse Rate 64 Respiratory Rate 15 Blood Pressure 83/41 L 98/36 L Pulse Oximetry Oxygen Delivery Exam 2 Const: Other: awake but confused and sleepy HENMT: Face/Nose/Sinus: Normal nares present Eyes: General: appearance normal, both eyes and all related structures Neck: Neck: supple Resp: Effort & Inspection: normal respiratory effort Cardio: Rate: regular rate GI: GI Palp: Yes Soft to palpation and No Tenderness to palpation present (GI) Auscultation: normal bowel sounds Other: noted large ventral hernia Urinary Catheter: Urinary Catheter: patent and draining Skin: General skin exam: normal color Neuro: Speech: normal speech Extrem: Other: bilateral AKA Psych: Other: confused Results Labs 05/04/24 08:24 05/04/24 08:24 Labs: Short CBC 05/04/24 Range/Units 08:24 WBC 7.5 (4.5-10.0) K/mm3 Hgb 11.2 L (12.0-15.0) g/dL Hct 35.5 L (37.0-47.0) % Plt Count 280 (150-375) k/mm3 BMP 05/04/24 08:24 Sodium 140 Potassium 4.2 Chloride 95 L Carbon Dioxide 31 H BUN 85 H D Creatinine 2.10 H Glucose 110 Calcium 9.8 Liver Function 05/04/24 Range/Units 08:24 Total Bilirubin 1.1 (0.2-1.3) mg/dL AST 29 (14-36) U/L ALT 11 (6-35) U/L Alkaline Phosphatase 46 (38-126) U/L Albumin 3.9 (3.5-5.1) g/dL
[2024-05-04 13:26] LABS: Basophils Percent Auto 0.5 % (0.2-1.2); Eosinophils Absolute Auto 0.2 K/mm3 (0-0.3); Hematocrit 36.8 % (37.0-47.0); Hemoglobin 11.2 g/dL (12.0-15.0); Immature Granulocyte Absolute 0.01 K/mm3 (0.00-0.031); Immature Granulocyte Percent A 0.1 % (0-0.5); Lymphocytes Absolute Auto 1.11 K/mm3 (0.9-3.2); Lymphocytes Percent Auto 15.2 % (18.3-44.2); Mean Corpuscular HGB Conc 30.4 g/dl (32-36); Mean Corpuscular Volume 101.9 fl (80-100); Mean Platelet Volume 10.3 fl (7.4-10.4); Monocytes Absolute Auto 0.5 K/mm3 (0.1-0.6); Monocytes Percent Auto 6.3 % (2.6-8.5); Neutrophils Absolute Auto 5.5 K/mm3 (1.3-6.7); Neutrophils Percent Auto 74.9 % (45.5-73.1); Platelet Count Result 260 k/mm3 (150-375); Red Blood Count 3.61 M/mm3 (4.2-5.4); Red Cell Distribution Width 17.3 % (11.5-14.5); White Blood Count 7.3 K/mm3 (4.5-10.0)
--- NOTE | 2024-05-04 14:12 | P.CONUR_ITS ---
Assessment and Plan Assessment and plan (1) Abnormal urinalysis: Code(s): R82.90 - Unspecified abnormal findings in urine Status: Acute Assessment and Plan: Likely represents colonization rather than infection given her normal white count (2) Abnormal CT scan, kidney: Code(s): R93.429 - Abnormal radiologic findings on diagnostic imaging of unspecified kidney Status: Acute Assessment and Plan: Trace hydronephrosis on the left with air in the collecting system. These findings appear chronic in nature and present for several months. She is nontoxic appearing. I do not think this represents ascending urinary tract infection. Her abnormal urinalysis is likely colonization she has no symptoms of signs of pyelonephritis. No plans on intervening unless she becomes unstable. Urology Consult Note HPI Date Seen: 05/04/24 Requesting Physician: Sreekanth Gloria MD Primary Care Provider: UNKNOWN,DOCTOR Consult Narrative Narrative: Iris Pascual is a 69 year old female with many chronic medical conditions. She is not much of a historian. She is currently working with therapy. A lot of the history is taken from the chart as well as review of records, prior labs, and prior CT scans. She is an amputee. She has chronic indwelling Kaplan catheter. She is currently admitted for upper GI bleeding coffee-ground emesis. She is noted to have constipation as well. She has C diff colitis. She has been seen by Gastroenterology. I am specifically asked to comment on abnormal CT findings. She has minimal left hydronephrosis with air in the bladder as well as collecting system. I reviewed previous CT scans. This minimal hydronephrosis chronic in nature dating back to at least 2022. This air in the collecting system is also chronic in nature dating back to several months ago. It is stable. She is nontoxic appearing. She has a normal white count. She clinically does not look to have ascending urinary tract infection. Her abnormal urinalysis is likely colonization due to her chronic indwelling Kaplan catheter. It is unclear to me where this catheter is managed. There are no other notes within the system. Review of Systems 2 Review of Systems: ROS unobtainable: Yes unobtainable due to medical condition PMFSH Past Medical History Medical History (Updated 05/04/24 @ 14:17 by Veto Vegas MD) Abnormal CT of the abdomen Stercoral colitis Coffee ground emesis Urinary tract infection due to extended-spectrum beta lactamase (ESBL) producing Escherichia coli Type 2 diabetes mellitus Hypertension C. difficile diarrhea (01/2024) Gastroesophageal reflux disease History of breast cancer Dyslipidemia Thyroid cancer Hyperlipidemia Peripheral vascular disease Anemia Non-STEMI (non-ST elevated myocardial infarction) Combined systolic and diastolic congestive heart failure echocardiogram 12/06/2021: Severely reduced right ventricular systolic function with EF of 20-25%, moderate left ventricular chamber enlargement, moderate left atrial enlargement, grade 2 diastolic dysfunction Neuropathy Psychiatric disorder Dementia Surgical History Surgical History History of above-knee amputation of both lower extremities History of thyroid surgery History of right breast implant Patient reports that it was radiation implant History of lumpectomy of left breast Family History Family History Mother Family history of type 2 diabetes mellitus, Onset Age: 55 Father Acute myocardial infarction, Onset Age: 58 Social History Social History Social History: Surrogate medical decision maker: Ailyn Turner, daughter. Code status: Do not resuscitate with selective treatment (paperwork accompanies the patient). Smoking status: Unknown if ever smoked Second hand tobacco smoke exposure: No Alcohol intake: unknown Substance use: unknown Substance use type: does not use Do You Feel Safe in your Home?: Yes Lack of Transportation: No Lack of Food: Never True Current Housing: I Have Housing Concerned About Future Housing: No Difficulty Paying Gas/Electric Bills: No Difficulty Paying for Meds: No Currently Unemployed: No Education: High School Diploma/GED Difficulty w/ Childcare or Family Care: No Spiritual care concerns: No Meds Home Medications and Allergies Home Medications ?Medication ?Instructions ?Recorded ?Confirmed ?Type atorvastatin 40 mg tablet 40 mg PO HS 12/05/21 05/04/24 History levothyroxine 100 mcg tablet 100 mcg PO DAILY 12/05/21 05/04/24 History gabapentin 300 mg capsule 300 mg PO TID 05/16/22 05/04/24 History potassium chloride 10 mEq 10 meq PO DAILY 05/16/22 05/04/24 History capsule,extended release furosemide 40 mg tablet (Lasix) 40 mg PO DAILY 01/10/24 05/04/24 History carvedilol 6.25 mg tablet (Coreg) 6.25 mg PO BID 01/30/24 05/04/24 History naloxone 4 mg/actuation nasal spray 1 spray intranasal Q2M PRN OPIOD 01/30/24 05/04/24 History OVERDOSE sacubitril 24 mg-valsartan 26 mg 1 tablet PO Q12H 01/30/24 05/04/24 History tablet (Entresto) tramadol 50 mg tablet 50 mg PO Q8H PRN pain 01/30/24 05/04/24 History insulin aspart U-100 100 unit/mL See Rx Instructions .Route 02/07/24 05/04/24 Rx subcutaneous solution (Novolog .COMPLEX #10 mL U-100 Insulin aspart) magnesium citrate (Citroma oral 150 ml PO DAILY PRN Constipation 02/15/24 05/04/24 History solution) magnesium hydroxide 400 mg/5 mL 400 mg PO HS PRN Constipation 02/15/24 05/04/24 History oral suspension (Milk of Magnesia) omeprazole 20 mg capsule,delayed 20 mg PO DAILY 02/15/24 05/04/24 History release sodium phosphates 19 gram-7 118 ml RECTAL DAILY PRN 02/15/24 05/04/24 History gram/118 mL enema (Fleet Enema) Constipation ferrous sulfate 325 mg (65 mg 325 mg PO BID #90 tabs 02/29/24 05/04/24 Rx iron) tablet,delayed release calcium 600 mg (as 1 cap PO DAILY #30 caps 03/01/24 05/04/24 Rx carbonate)-vitamin D3 5 mcg (200 unit) capsule (Calcium 600 + D(3)) empagliflozin 10 mg tablet 5 mg (1/2 x 10 mg) PO DAILY #90 03/01/24 05/04/24 Rx (Jardiance) tabs acetaminophen 325 mg capsule 325 mg PO Q4H PRN pain 05/04/24 05/04/24 History calcium 600 mg (as 600 cap PO DAILY 05/04/24 05/04/24 History carbonate)-vitamin D3 5 mcg (200 unit) capsule (Calcium 600 + D(3)) calcium alginate 2 X 2 bandage 05/04/24 05/04/24 History collagen (bovine) 100 % topical 1 applic topical DAILY 05/04/24 05/04/24 History powder cyanocobalamin (vitamin B-12) 1,000 mcg PO DAILY 05/04/24 05/04/24 History 1,000 mcg capsule multivitamin,tx-minerals 1 cap PO DAILY 05/04/24 05/04/24 History (Multi-Vitamin HP/Minerals capsule) silver sulfadiazine 1 % topical 1 applic topical DAILY sacrum wound 05/04/24 05/04/24 History cream (Silvadene) spironolactone 25 mg tablet 25 mg PO DAILY 05/04/24 05/04/24 History Allergies Allergy/AdvReac Type Severity Reaction Status Date / Time codeine Allergy Unknown Verified 05/04/24 06:39 Vital Signs Vital Signs - 24 hr 05/04/24 06:33 05/04/24 06:57 05/04/24 07:00 Temperature 98.0 F Pulse Rate 68 70 66 Respiratory Rate 16 17 13 Blood Pressure 129/35 L 137/31 L 142/35 H Pulse Oximetry 99 100 100 Oxygen Delivery Room Air 05/04/24 07:16 05/04/24 07:31 05/04/24 07:46 Temperature Pulse Rate 66 66 66 Respiratory Rate 15 10 L 16 Blood Pressure 139/49 L 122/33 L 99/28 L Pulse Oximetry 100 Oxygen Delivery 05/04/24 08:00 05/04/24 08:04 05/04/24 08:24 Temperature Pulse Rate 72 69 65 Respiratory Rate 18 18 14 Blood Pressure 81/53 L 92/33 L 79/40 L Pulse Oximetry 99 Oxygen Delivery 05/04/24 08:30 05/04/24 08:31 05/04/24 08:43 Temperature Pulse Rate 64 64 62 Respiratory Rate 14 16 15 Blood Pressure 71/30 L 87/28 L 89/42 L Pulse Oximetry 97 97 97 Oxygen Delivery 05/04/24 08:45 05/04/24 08:45 05/04/24 09:00 Temperature Pulse Rate 64 63 71 Respiratory Rate 15 19 Blood Pressure 90/42 L 95/53 L Pulse Oximetry 96 98 Oxygen Delivery 05/04/24 09:17 05/04/24 09:28 05/04/24 09:31 Temperature Pulse Rate 65 65 Respiratory Rate 16 16 Blood Pressure 100/41 L 94/53 L Pulse Oximetry 98 99 98 Oxygen Delivery Room Air 05/04/24 09:32 05/04/24 09:46 02/22/25 10:04 Temperature Pulse Rate 65 68 69 Respiratory Rate 15 16 18 Blood Pressure 94/53 L 109/65 88/59 L Pulse Oximetry 99 100 Oxygen Delivery 05/04/24 10:12 05/04/24 10:16 05/04/24 12:00 Temperature 98.9 F Pulse Rate 64 63 Respiratory Rate 15 14 Blood Pressure 83/41 L 98/36 L 115/46 L Pulse Oximetry 100 Oxygen Delivery Exam 2 Narrative: No acute distress Poor dentition Currently working with speech therapy Above the knee amputation Kaplan catheter in place draining clear yellow urine Nontoxic appearance Results Labs 05/04/24 12:29 05/04/24 08:24 Labs: Short CBC 05/04/24 05/04/24 Range/Units 08:24 12:29 WBC 7.5 7.3 (4.5-10.0) K/mm3 Hgb 11.2 L 11.2 L (12.0-15.0) g/dL Hct 35.5 L 36.8 L (37.0-47.0) % Plt Count 280 260 (150-375) k/mm3 [facility] 05/04/24 08:24 Sodium 140 Potassium 4.2 Chloride 95 L Carbon Dioxide 31 H BUN 85 H D Creatinine 2.10 H Glucose 110 Calcium 9.8 Liver Function 05/04/24 Range/Units 08:24 Total Bilirubin 1.1 (0.2-1.3) mg/dL AST 29 (14-36) U/L ALT 11 (6-35) U/L Alkaline Phosphatase 46 (38-126) U/L Albumin 3.9 (3.5-5.1) g/dL Imaging My impression: Minimal left hydronephrosis air in the collecting system. This appears chronic in nature May be secondary to vesicoureteral reflux due to chronic indwelling Kaplan catheter
[2024-05-04 15:08] LABS: Add Urine Microscopic? YES; Appearance Urine Turbid (Clear); Bacteria Urine 4+ /hpf; Bilirubin Urine Negative (Negative); Blood Urine 2+ (Negative); Color Urine Yellow (Yellow); Glucose Urine UA Negative (Negative); Ketones Urine Trace mg/dL (Negative); Leukocyte Esterase Ur 3+ LEU/UL (Negative); Need Manual Microscopic Reviewed; Nitrate Urine Negative (Negative); Protein Urine 1+ mg/dL (Negative); RBC Urine 21-50 /hpf (0-2); Squamous Epithelial Cell Urine Occasional /hpf (Few); Urobilinogen Urine 0.2 mg/dL (<2.0); WBC Urine >100 /hpf (0-3); pH Urine 5.5 (5.0-9.0)
[2024-05-04] MEDS: PIPERACILLIN/TAZ 2.25G/NS 50ML 2.25 GM/50 ML BAG IVPB ×2 (15:17→23:18)
[2024-05-04] MEDS: VANCOMYCIN HCL 125 MG ORAL CAPSULE PO ×3 (15:17→23:18)
[2024-05-04] MEDS: SODIUM CHLORIDE 0.9% IV 1,000 ML 100 ML IV CONT (15:17)
[2024-05-04 16:10] LABS: MRSA (PCR) NOT DETECTED (NOT DETECTE)
[2024-05-04] MEDS: PANTOPRAZOLE SODIUM IV 40 MG VIAL IV PUSH (23:19)
[2024-05-05] VITALS (10 sets, daily range): BP systolic 99–136; BP diastolic 30–40; PULSE 63–79; RESP 14–16; TEMP 36.3–37.1; O2SAT 97–100
[2024-05-05] MEDS: ACETAMINOPHEN 325 MG TABLET 650 MG PO (01:28)
[2024-05-05] MEDS: VANCOMYCIN HCL 125 MG ORAL CAPSULE PO ×3 (06:23→18:07)
[2024-05-05] MEDS: PIPERACILLIN/TAZ 2.25G/NS 50ML 2.25 GM/50 ML BAG IVPB ×3 (06:23→21:35)
[2024-05-05] MEDS: SODIUM CHLORIDE 0.9% IV 1,000 ML 100 ML IV CONT ×3 (06:24→18:07)
[2024-05-05] MEDS: PANTOPRAZOLE SODIUM IV 40 MG VIAL IV PUSH ×2 (10:52→21:35)
--- NOTE | 2024-05-05 13:44 | PM.IMPN ---
Progress Note: A&P Assessment and Plan (1) GI bleed: Code(s): K92.2 - Gastrointestinal hemorrhage, unspecified Status: Acute (2) Colitis: Code(s): K52.9 - Noninfective gastroenteritis and colitis, unspecified Status: Acute (3) Acute kidney injury: Code(s): N17.9 - Acute kidney failure, unspecified Status: Acute Plan GI bleed Patient presented with hematemesis and melena stool Continue Protonix Continue IV fluids, monitor H&H For EGD next week GI consult. Recurrent C diff diarrhea Patient has a history of recurrent C diff. On oral vancomycin, likely will be on a long taper, GI or consulted. Continue IVF and monitor Right lower lobe pneumonia CT reviewed. Blood culture MRSA ordered On Zosyn monitor ABDIRASHID dehydration from diarrhea and vomiting Cr 2.10 Continue above treatment monitor renal function Left ascending left-sided urinary tract infection with hydronephrosis Chronic cystitis urology evaluated and noted that changes are chronic and no acute infection No need for intervention urology following S/p AKA DVT prophylaxis, Anticoagulation on hold due to GI bleed DNR Surrogate decision maker Mercedes Davidson Daughter Subjective Date/time seen: 05/05/24 13:44 Interval history: Patient comfortable at bedside For EGD next week. Review of Systems Review of Systems: Other systems reviewed and negative except as noted in the history above. Exam Narrative: General: alert and comfortable Eyes: EOMI, PERRLA ENNT External ears normal, Neck is supple, no masses, Respiratory systems: Clear to auscultation Cardiovascular S1, S2, normal rhythm, no murmur, rub, or gallop; no thrill or palpable murmurs on palpation. Gastrointestinal: soft, non-tender, and non-distended abdomen with no masses; BS present Skin: no rash, lesions, ulcerations, subcutaneous nodules or induration Musculoskeletal: Bilateral AKA Neurologic: Alert and oriented x3, non focal Mental Status Exam: normal affect Objective Data Vital Signs Vital Signs: Vital Signs - 24 hr 05/04/24 14:00 05/04/24 16:00 05/04/24 16:00 Temperature 97.9 F Pulse Rate 62 63 63 Respiratory Rate 12 Blood Pressure 90/40 L Pulse Oximetry 100 Oxygen Delivery 05/04/24 17:54 05/04/24 20:00 05/04/24 20:00 Temperature 98.1 F Pulse Rate 68 68 67 Respiratory Rate 16 Blood Pressure 117/34 L Pulse Oximetry 100 Oxygen Delivery 05/04/24 22:00 05/04/24 23:00 05/04/24 23:34 Temperature 98 F Pulse Rate 70 68 Respiratory Rate 16 Blood Pressure 108/38 L Pulse Oximetry 100 Oxygen Delivery Room Air 05/05/24 00:00 05/05/24 02:00 05/05/24 03:34 Temperature Pulse Rate 63 72 Respiratory Rate Blood Pressure Pulse Oximetry Oxygen Delivery Room Air 05/05/24 03:56 05/05/24 04:00 05/05/24 06:00 Temperature 97.4 F L Pulse Rate 74 71 64 Respiratory Rate 16 Blood Pressure 99/31 L Pulse Oximetry 99 Oxygen Delivery 05/05/24 08:00 05/05/24 12:00 Temperature 97.6 F 98.7 F Pulse Rate 75 77 Respiratory Rate 14 14 Blood Pressure 109/30 L 111/40 L Pulse Oximetry 100 97 Oxygen Delivery Intake/Output Intake/Output: Intake & Output 05/02/24 05/03/24 05/04/24 05/05/24 23:59 23:59 23:59 23:59 Intake Total 1100 1805 Output Total 1150 825 Balance -50 980 Meds/Results Medications: Active Medications Generic Name Dose Route Start Last Admin Trade Name Freq PRN Reason Stop Dose Admin Acetaminophen 650 mg 05/05/24 01:19 05/05/24 01:28 Acetaminophen 325 Mg Tablet PO 650 mg Q6H PRN Administration Mild Pain (1-3) or Fever Sodium Chloride 1,000 mls @ 100 mls/hr 05/04/24 11:40 05/05/24 10:51 Normal Saline Iv IV CONT 100 mls/hr .Q10H KASIE Administration Piperacillin Sod/Tazobactam Sod 2.25 gm in 50 mls @ 100 mls/hr 05/04/24 13:00 05/05/24 06:23 Zosyn 2.25 Gm/Ns 50 Ml IVPB 100 mls/hr Q8HR KASIE Administration Ondansetron HCl 4 mg 05/04/24 08:51 Ondansetron Inj 4 Mg/2 Ml Vial IV PUSH Q4H PRN Nausea Pantoprazole Sodium 40 mg 05/04/24 21:00 05/05/24 10:52 Pantoprazole Sodium Iv 40 Mg Vial IV PUSH 40 mg Q12HR KASIE Administration Vancomycin HCl 125 mg 05/04/24 12:00 05/05/24 12:46 Vancomycin Hcl 125 Mg Oral Capsule PO 125 mg Q6HR KASIE Administration Radiology Results: ITS Impressions Abdomen/Pelvis CT 05/04/24 09:22 IMPRESSION: 1. Large gallstone at the rectum with rectal wall thickening consistent with likely constipation with fecal impaction and secondary stercoral colitis. 2. Findings suspicious for chronic cystitis and left-sided ascending urinary tract infection with mild left hydronephrosis with gas in the collecting system subtle haziness in the renal sinus fat. 3. New tree-in-bud opacities in the dependent right lower lobe consistent with endobronchial spread of disease such as aspiration or pneumonia. 4. Cardiomegaly with chronic small pericardial effusion. 5. 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 Labs Labs: Laboratory Results - last 24 hr 05/04/24 05/04/24 14:45 14:50 Urine Color Yellow Urine Appearance Turbid H Urine pH 5.5 Ur Specific [place] 1.010 Urine Protein 1+ H Urine Glucose (UA) Negative Urine Ketones Trace H Ur Blood (Man) 2+ H Urine Nitrate Negative Urine Bilirubin Negative Urine Urobilinogen 0.2 Add Ur Microanalysis Reviewed Leukocyte Esterase Rfl 3+ H Urine RBC 21-50 H Urine WBC >100 H Ur Squamous Epith Cells Occasional Urine Bacteria 4+ H Urine Casts 11-20 Nasal MRSA (PCR) Not detected
--- NOTE | 2024-05-05 17:46 | WPDGIPROGNO ---
Progress Note: A&P Assessment and Plan (1) Coffee ground emesis: Code(s): K92.0 - Hematemesis Status: Acute Assessment and Plan: no more episodes hgb stable and she is tolerating diet patient and son do not want scope and prefer conservative approach ok to advance diet ppi daily will follow as needed (2) Stercoral colitis: Code(s): K52.89 - Other specified noninfective gastroenteritis and colitis Status: Acute Assessment and Plan: had c diff, noted stercoral colitis no abdominal pain (3) C. difficile diarrhea: Onset Date: 01/2024 Code(s): A04.72 - Enterocolitis due to Clostridium difficile, not specified as recurrent Status: Acute Assessment and Plan: on treatment (4) Osteomyelitis: Code(s): M86.9 - Osteomyelitis, unspecified Status: Acute (5) Pneumonia: Code(s): J18.9 - Pneumonia, unspecified organism Status: Acute Assessment and Plan: on abx Subjective Date/time seen: 05/05/24 17:46 Interval history: no report of emesis since admission she is eating liquid diet right now son at bedside Review of Systems Review of Systems: All systems reviewed & are unremarkable except as noted in HPI and below Exam Const: Other: awake and alert, she is eating now HENMT: Face/Nose/Sinus: Normal nares present Eyes: General: appearance normal, both eyes and all related structures Neck: Neck: supple Resp: Effort & Inspection: normal respiratory effort Cardio: Rate: regular rate GI: GI Palp: Yes Soft to palpation and No Tenderness to palpation present (GI) Auscultation: normal bowel sounds Other: noted large ventral hernia Urinary Catheter: Urinary Catheter: patent and draining Skin: General skin exam: normal color Neuro: Speech: normal speech Extrem: Other: bilateral AKA Psych: Other: confused Objective Data Vital Signs Vital Signs: Vital Signs - 24 hr 05/04/24 17:54 05/04/24 20:00 05/04/24 20:00 Temperature 98.1 F Pulse Rate 68 68 67 Respiratory Rate 16 Blood Pressure 117/34 L Pulse Oximetry 100 Oxygen Delivery 05/04/24 22:00 05/04/24 23:00 05/04/24 23:34 Temperature 98 F Pulse Rate 70 68 Respiratory Rate 16 Blood Pressure 108/38 L Pulse Oximetry 100 Oxygen Delivery Room Air 05/05/24 00:00 05/05/24 02:00 05/05/24 03:34 Temperature Pulse Rate 63 72 Respiratory Rate Blood Pressure Pulse Oximetry Oxygen Delivery Room Air 05/05/24 03:56 05/05/24 04:00 05/05/24 06:00 Temperature 97.4 F L Pulse Rate 74 71 64 Respiratory Rate 16 Blood Pressure 99/31 L Pulse Oximetry 99 Oxygen Delivery 05/05/24 08:00 05/05/24 08:00 05/05/24 10:00 Temperature 97.6 F Pulse Rate 75 64 69 Respiratory Rate 14 Blood Pressure 109/30 L Pulse Oximetry 100 Oxygen Delivery 05/05/24 12:00 05/05/24 12:00 05/05/24 14:00 Temperature 98.7 F Pulse Rate 77 79 67 Respiratory Rate 14 Blood Pressure 111/40 L Pulse Oximetry 97 Oxygen Delivery 05/05/24 16:00 05/05/24 16:00 Temperature 97.8 F Pulse Rate 76 79 Respiratory Rate 16 Blood Pressure 136/37 L Pulse Oximetry 100 Oxygen Delivery Intake/Output Intake/Output: Intake & Output 05/02/24 05/03/24 05/04/24 05/05/24 23:59 23:59 23:59 23:59 Intake Total 1100 1855 Output Total 1150 825 Balance -50 1030 Meds/Results Medications: Active Medications Generic Name Dose Route Start Last Admin Trade Name Freq PRN Reason Stop Dose Admin Acetaminophen 650 mg 05/05/24 01:19 05/05/24 01:28 Acetaminophen 325 Mg Tablet PO 650 mg Q6H PRN Administration Mild Pain (1-3) or Fever Sodium Chloride 1,000 mls @ 100 mls/hr 05/04/24 11:40 05/05/24 10:51 Normal Saline Iv IV CONT 100 mls/hr .Q10H KASIE Administration Piperacillin Sod/Tazobactam Sod 2.25 gm in 50 mls @ 100 mls/hr 05/04/24 13:00 05/05/24 15:22 Zosyn 2.25 Gm/Ns 50 Ml IVPB 100 mls/hr Q8HR KASIE Administration Ondansetron HCl 4 mg 05/04/24 08:51 Ondansetron Inj 4 Mg/2 Ml Vial IV PUSH Q4H PRN Nausea Pantoprazole Sodium 40 mg 05/04/24 21:00 05/05/24 10:52 Pantoprazole Sodium Iv 40 Mg Vial IV PUSH 40 mg Q12HR KASIE Administration Vancomycin HCl 125 mg 05/04/24 12:00 05/05/24 12:46 Vancomycin Hcl 125 Mg Oral Capsule PO 125 mg Q6HR KASIE Administration Radiology Results: ITS Impressions Abdomen/Pelvis CT 05/04/24 09:22 IMPRESSION: 1. Large gallstone at the rectum with rectal wall thickening consistent with likely constipation with fecal impaction and secondary stercoral colitis. 2. Findings suspicious for chronic cystitis and left-sided ascending urinary tract infection with mild left hydronephrosis with gas in the collecting system subtle haziness in the renal sinus fat. 3. New tree-in-bud opacities in the dependent right lower lobe consistent with endobronchial spread of disease such as aspiration or pneumonia. 4. Cardiomegaly with chronic small pericardial effusion. 5. 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
--- NOTE | 2024-05-05 21:23 | PC.NURSE ---
This patient, Iris Pascual, was transferred to [ [id number]] on 05/05/24 at 2100. Personal belongings sent with patient. Report given to [Dona PALMER ]. Appropriate documentation sent with patient.
[2024-05-06] MEDS: VANCOMYCIN HCL 125 MG ORAL CAPSULE PO ×4 (00:38→18:30)
[2024-05-06] MEDS: SODIUM CHLORIDE 0.9% IV 1,000 ML 100 ML IV CONT (00:40)
[2024-05-06 05:53] LABS: Basophils Absolute Auto 0.1 K/mm3 (0.0-0.1); Eosinophils Absolute Auto 0.3 K/mm3 (0-0.3); Eosinophils Percent Auto 6.9 % (0-4.4); Hematocrit 29.2 % (37.0-47.0); Hemoglobin 9.2 g/dL (12.0-15.0); Immature Granulocyte Absolute 0.01 K/mm3 (0.00-0.031); Immature Granulocyte Percent A 0.2 % (0-0.5); Lymphocytes Absolute Auto 1.12 K/mm3 (0.9-3.2); Lymphocytes Percent Auto 23.4 % (18.3-44.2); Mean Corpuscular HGB Conc 31.5 g/dl (32-36); Mean Corpuscular Volume 98.3 fl (80-100); Mean Platelet Volume 9.4 fl (7.4-10.4); Monocytes Absolute Auto 0.5 K/mm3 (0.1-0.6); Monocytes Percent Auto 9.8 % (2.6-8.5); Neutrophils Absolute Auto 2.8 K/mm3 (1.3-6.7); Neutrophils Percent Auto 58.7 % (45.5-73.1); Platelet Count Result 221 k/mm3 (150-375); Red Blood Count 2.97 M/mm3 (4.2-5.4); Red Cell Distribution Width 16.7 % (11.5-14.5); White Blood Count 4.8 K/mm3 (4.5-10.0)
[2024-05-06] MEDS: PIPERACILLIN/TAZ 2.25G/NS 50ML 2.25 GM/50 ML BAG IVPB (05:58)
[2024-05-06 06:00] VITALS: BP 102/59; PULSE 72; RESP 18; TEMP 36.2; O2SAT 99
[2024-05-06 06:06] LABS: Lactic Acid Reflex 0.9 mmol/L (0.7-2.0)
[2024-05-06 06:09] LABS: Alanine Aminotransferase 11 U/L (6-35); Albumin Level 3.6 g/dL (3.5-5.1); Alkaline Phosphatase 34 U/L (38-126); Anion Gap 13 mmol/L (4-12); Aspartate Amino Transferase 21 U/L (14-36); Bilirubin,Total 1.1 mg/dL (0.2-1.3); Blood Urea Nitrogen 53 mg/dL (7-17); Calcium 8.2 mg/dL (8.4-10.2); Carbon Dioxide 23 mmol/L (22-30); Chloride 104 mmol/L (98-107); Estimated CRCL calculation 30 ml/min; Estimated Glomerular Filt Rate 42; Glucose 125 mg/dL (65-110); Magnesium 1.6 mg/dL (1.6-2.3); Potassium 2.8 mmol/L (3.4-5.0); Sodium 140 mmol/L (137-145)
[2024-05-06 09:04] LABS: Glucose Point of Care 118 mg/dl (65-105)
[2024-05-06] MEDS: PANTOPRAZOLE SODIUM IV 40 MG VIAL IV PUSH (09:22)
[2024-05-06] MEDS: POTASSIUM CHLORIDE 20 MEQ PACKET (FOR LIQUID) 40 MEQ PO (09:22)
[2024-05-06] MEDS: POTASSIUM CHLORIDE INJ 40 MEQ in SODIUM CHLORIDE 0.9% IV 500 ML 130 MEQ IVPB (09:22)
[2024-05-06] MEDS: MAGNESIUM SULF 2 GM/WATER 50ML 2 GM/50 ML BAG IVPB (09:33)
[2024-05-06 11:27] VITALS: BP 117/43; PULSE 77; RESP 18; TEMP 36.7; O2SAT 99
--- NOTE | 2024-05-06 12:57 | P.PNIM_ITS ---
Progress Note: A&P Assessment and Plan (1) GI bleed: Code(s): K92.2 - Gastrointestinal hemorrhage, unspecified Status: Acute (2) Colitis: Code(s): K52.9 - Noninfective gastroenteritis and colitis, unspecified Status: Acute (3) Acute kidney injury: Code(s): N17.9 - Acute kidney failure, unspecified Status: Acute Plan Hypokalemia Likely from Diarrhea K 2.8 this morning, replaced Monitoring one more day, if improved tomorrow moring can discharge GI bleed Patient presented with hematemesis and melena stool Continue Protonix GI initially recommended EGD this week, now no since Hb is table and patient not actively bleeding GI now noted no intervention will continue PPI daily GI on as needed Recurrent C diff diarrhea Patient has a history of recurrent C diff diarrhea resolving On oral vancomycin, likely will be on a long taper, GI or consulted. patient may need tapered dosing monitor Right lower lobe pneumonia CT reviewed. Blood culture MRSA ordered On Zosyn, transition to Augmentin on discharge monitor ABDIRASHID dehydration from diarrhea and vomiting Cr 1.21 from 2.10 Continue above treatment monitor renal function Left ascending left-sided urinary tract infection with hydronephrosis Chronic cystitis urology evaluated and noted that changes are chronic and no acute infection No need for intervention urology following S/p AKA DVT prophylaxis, Anticoagulation on hold due to GI bleed awaiting improvement of Hypokalemia for discharge Subjective Date/time seen: 05/06/24 12:57 Interval history: Comfortable at beside now Gi evaluated and noted no intervention at this time K 2.8, replaced and will monitor one more night Review of Systems Review of Systems: Other systems reviewed and negative except as noted in the history above. Exam Narrative: General: alert and comfortable Eyes: EOMI, PERRLA ENNT External ears normal, Neck is supple, no masses, Respiratory systems: Clear to auscultation Cardiovascular S1, S2, normal rhythm, no murmur, rub, or gallop; no thrill or palpable murmurs on palpation. Gastrointestinal: soft, non-tender, and non-distended abdomen with no masses; BS present Skin: no rash, lesions, ulcerations, subcutaneous nodules or induration Musculoskeletal: Bilateral AKA Neurologic: Alert and oriented x3, non focal Mental Status Exam: normal affect Objective Data Vital Signs Vital Signs: Vital Signs - 24 hr 05/05/24 14:00 05/05/24 16:00 05/05/24 16:00 Temperature 97.8 F Pulse Rate 67 76 79 Respiratory Rate 16 Blood Pressure 136/37 L Pulse Oximetry 100 05/06/24 06:00 05/06/24 11:27 Temperature 97.2 F L 98.1 F Pulse Rate 72 77 Respiratory Rate 18 18 Blood Pressure 102/59 L 117/43 L Pulse Oximetry 99 99 Intake/Output Intake/Output: Intake & Output 05/03/24 05/04/24 05/05/24 05/06/24 23:59 23:59 23:59 23:59 Intake Total 1100 3641.7 825 Output Total 1150 1825 1400 Balance -50 1816.7 -575 Meds/Results Medications: Active Medications Generic Name Dose Route Start Last Admin Trade Name Freq PRN Reason Stop Dose Admin Acetaminophen 650 mg 05/05/24 01:19 05/05/24 01:28 Acetaminophen 325 Mg Tablet PO 650 mg Q6H PRN Administration Mild Pain (1-3) or Fever Sodium Chloride 1,000 mls @ 100 mls/hr 05/04/24 11:40 05/06/24 00:40 Normal Saline Iv IV CONT 100 mls/hr .Q10H KASIE Administration Piperacillin Sod/Tazobactam Sod 2.25 gm in 50 mls @ 100 mls/hr 05/04/24 13:00 05/06/24 06:28 Zosyn 2.25 Gm/Ns 50 Ml IVPB Infused Q8HR KASIE Infusion Ondansetron HCl 4 mg 05/04/24 08:51 Ondansetron Inj 4 Mg/2 Ml Vial IV PUSH Q4H PRN Nausea Pantoprazole Sodium 40 mg 05/04/24 21:00 05/06/24 09:22 Pantoprazole Sodium Iv 40 Mg Vial IV PUSH 40 mg Q12HR KASIE Administration Vancomycin HCl 125 mg 05/04/24 12:00 05/06/24 12:32 Vancomycin Hcl 125 Mg Oral Capsule PO 125 mg Q6HR KASIE Administration Radiology Results: ITS Impressions Abdomen/Pelvis CT 05/04/24 09:22 IMPRESSION: 1. Large gallstone at the rectum with rectal wall thickening consistent with likely constipation with fecal impaction and secondary stercoral colitis. 2. Findings suspicious for chronic cystitis and left-sided ascending urinary tract infection with mild left hydronephrosis with gas in the collecting system subtle haziness in the renal sinus fat. 3. New tree-in-bud opacities in the dependent right lower lobe consistent with endobronchial spread of disease such as aspiration or pneumonia. 4. Cardiomegaly with chronic small pericardial effusion. 5. 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 Labs Labs: Laboratory Results - last 24 hr 05/06/24 05/06/24 05:46 08:56 WBC 4.8 RBC 2.97 L Hgb 9.2 L Hct 29.2 L MCV 98.3 MCH 31.0 MCHC 31.5 L RDW 16.7 H Plt Count 221 MPV 9.4 Immature Gran % (Auto) 0.2 Neut % (Auto) 58.7 Lymph % (Auto) 23.4 [place] % (Auto) 9.8 H Eos % (Auto) 6.9 H Baso % (Auto) 1.0 Lymph # (Auto) 1.12 [place] # (Auto) 0.5 Eos # (Auto) 0.3 Baso # (Auto) 0.1 Abs Immat Gran (auto) 0.01 Absolute Neuts (auto) 2.8 Absolute Nucleated RBC 0.000 Nucleated RBC % 0.0 Sodium 140 Potassium 2.8 L* Chloride 104 Carbon Dioxide 23 Anion Gap 13 H BUN 53 H D Creatinine 1.25 H Estim Creat Clear Calc 30 Estimated GFR 42 L Glucose 125 H POC Capillary Glucose 118 H Lactic Acid 0.9 Calcium 8.2 L Magnesium 1.6 Total Bilirubin 1.1 AST 21 ALT 11 Alkaline Phosphatase 34 L Total Protein 8.0 Albumin 3.6
[2024-05-06 13:17] VITALS: BMI 24.4
[2024-05-06 14:07] LABS: Glucose Point of Care 225 mg/dl (65-105)
[2024-05-06] MEDS: AMOXICILLIN/CLAVULANATE K 875-125 MG TAB 1 TABLET PO ×2 (14:15→20:36)
[2024-05-06] MEDS: SPIRONOLACTONE 25 MG TABLET PO (14:15)
[2024-05-06 17:04] LABS: Glucose Point of Care 204 mg/dl (65-105)
[2024-05-06 17:29] VITALS: BP 130/73; PULSE 79; RESP 18; TEMP 36.5; O2SAT 100
[2024-05-06] MEDS: INSULIN ASPART (*BKC) 100 UNITS/ML SUB-Q (18:30)
[2024-05-06] MEDS: ATORVASTATIN 40 MG TABLET PO (20:36)
[2024-05-06 21:33] VITALS: BP 142/96; PULSE 82; RESP 20; TEMP 36.2; O2SAT 100
[2024-05-07] MEDS: VANCOMYCIN HCL 125 MG ORAL CAPSULE PO ×2 (00:44→05:31)
[2024-05-07] MEDS: ACETAMINOPHEN 325 MG TABLET 650 MG PO (03:16)
[2024-05-07] MEDS: LEVOTHYROXINE SODIUM 100 MCG TABLET PO (05:31)
[2024-05-07 06:00] VITALS: BP 108/52; PULSE 85; RESP 20; TEMP 36.3; O2SAT 100
[2024-05-07 06:04] LABS: Basophils Percent Auto 0.5 % (0.2-1.2); Eosinophils Absolute Auto 0.2 K/mm3 (0-0.3); Eosinophils Percent Auto 3.8 % (0-4.4); Hematocrit 28.2 % (37.0-47.0); Hemoglobin 8.7 g/dL (12.0-15.0); Immature Granulocyte Absolute 0.02 K/mm3 (0.00-0.031); Immature Granulocyte Percent A 0.3 % (0-0.5); Lymphocytes Absolute Auto 1.38 K/mm3 (0.9-3.2); Lymphocytes Percent Auto 23.5 % (18.3-44.2); Mean Corpuscular HGB Conc 30.9 g/dl (32-36); Mean Corpuscular Volume 100.4 fl (80-100); Mean Platelet Volume 10.4 fl (7.4-10.4); Monocytes Absolute Auto 0.4 K/mm3 (0.1-0.6); Monocytes Percent Auto 7.5 % (2.6-8.5); Neutrophils Absolute Auto 3.8 K/mm3 (1.3-6.7); Neutrophils Percent Auto 64.4 % (45.5-73.1); Platelet Count Result 224 k/mm3 (150-375); Red Blood Count 2.81 M/mm3 (4.2-5.4); Red Cell Distribution Width 16.7 % (11.5-14.5); White Blood Count 5.9 K/mm3 (4.5-10.0)
[2024-05-07 06:13] LABS: Alanine Aminotransferase 13 U/L (6-35); Albumin Level 3.7 g/dL (3.5-5.1); Alkaline Phosphatase 41 U/L (38-126); Anion Gap 17 mmol/L (4-12); Aspartate Amino Transferase 25 U/L (14-36); Bilirubin,Total 1.1 mg/dL (0.2-1.3); Blood Urea Nitrogen 51 mg/dL (7-17); Calcium 8.5 mg/dL (8.4-10.2); Carbon Dioxide 17 mmol/L (22-30); Chloride 104 mmol/L (98-107); Estimated CRCL calculation 29 ml/min; Estimated Glomerular Filt Rate 41; Glucose 210 mg/dL (65-110); Magnesium 2.1 mg/dL (1.6-2.3); Potassium 4.1 mmol/L (3.4-5.0); Sodium 138 mmol/L (137-145)
[2024-05-07 06:16] LABS: Glucose Point of Care 148 mg/dl (65-105)
--- NOTE | 2024-05-07 07:33 | P.CDI_ITS ---
CDI Query Clarification Request BMI: 24.4 Nutritional Diagnostic Statement: Please refer to the comprehensive nutrition assessment for further information. If you agree with diagnosis of Severe protein calorie malnutrition related to chronic loss of appetite as evidenced by intakes <75% needs >1 month; weight loss 14%/2 months; severe muscle wasting and fat loss. Please specify severity if known: * Mild * Moderate * Severe * Other/Unknown <Tanisha Canales RN - Last Filed: 05/07/24 07:34> Clarified Diagnosis Clarified Diagnosis: Moderate malnutrition <Sallie Kasper MD - Last Filed: 05/07/24 10:55>
--- NOTE | 2024-05-07 08:07 | PM.IMPN ---
Progress Note: A&P Assessment and Plan (1) GI bleed: Code(s): K92.2 - Gastrointestinal hemorrhage, unspecified Status: Acute (2) Colitis: Code(s): K52.9 - Noninfective gastroenteritis and colitis, unspecified Status: Acute (3) Acute kidney injury: Code(s): N17.9 - Acute kidney failure, unspecified Status: Acute Plan Hypokalemia Likely from Diarrhea K 2.8 this morning, replaced Corrected GI bleed Patient presented with hematemesis and melena stool Continue Protonix GI initially recommended EGD this week, patient declined EGD or colonoscopy GI now noted no intervention, continue PPI daily GI on as needed Hemoglobin continue to drop. 8.7 today, I discussed with patient about risk of GI bleeding. Patient still declined EGD or colonoscopy Recurrent C diff diarrhea Patient has a history of recurrent C diff diarrhea resolving On oral vancomycin, likely will be on a long taper, GI or consulted. patient may need tapered dosing Had 2 bowel movement today Right lower lobe pneumonia CT reviewed. Blood culture MRSA ordered On Zosyn, transition to Augmentin on discharge Continue Augmentin till May 10 ABDIRASHID dehydration from diarrhea and vomiting 1.3 from 2.10 Continue above treatment monitor renal function per PCP Left ascending left-sided urinary tract infection with hydronephrosis Chronic cystitis urology evaluated and noted that changes are chronic and no acute infection No need for intervention urology following S/p AKA DVT prophylaxis, Anticoagulation on hold due to GI bleed awaiting improvement of Hypokalemia for discharge Subjective Date/time seen: 05/07/24 08:07 Interval history: Patient feels comfortable, denies chest pain abdomen pain nausea vomiting diarrhea. labs reviewed, hemoglobin pain continued to drop 8.7 today, blood pressure on the lower side Exam Narrative: GENERAL: Pleasant, in no acute distress. Well-nourished. - EYES: EOMI. Anicteric. - HENT: Moist mucous membranes. - LUNGS: Clear to auscultation bilaterally, no wheezing, rhonchi, or rales. - CARDIOVASCULAR: Regular rate and rhythm. No murmur. No JVD. - ABDOMEN: Soft, non-tender and non-distended. No palpable masses. - EXTREMITIES: No edema. Peripheral pulses 2+. Non-tender. - NEUROLOGIC: No focal neurological deficits. CN II-XII grossly intact. General weakness - PSYCHIATRIC: Awake, Alert and oriented x 3. Appropriate mood and affect. - SKIN: No rashes or lesions. Warm. - LYMPH: No cervical lymphadenopathy. Objective Data Vital Signs Vital Signs: Vital Signs - 24 hr 05/06/24 11:27 05/06/24 14:15 05/06/24 17:29 Temperature 98.1 F 97.7 F Pulse Rate 77 79 Respiratory Rate 18 18 Blood Pressure 117/43 L 130/73 Pulse Oximetry 99 100 Oxygen Delivery Room Air 05/06/24 21:33 05/07/24 06:00 Temperature 97.1 F L 97.3 F L Pulse Rate 82 85 Respiratory Rate 20 20 Blood Pressure 142/96 H 108/52 L Pulse Oximetry 100 100 Oxygen Delivery Intake/Output Intake/Output: Intake & Output 05/04/24 05/05/24 05/06/24 05/07/24 23:59 23:59 23:59 23:59 Intake Total 1100 3641.7 2352 140 Output Total 1150 1825 1800 1203 Balance -50 1816.7 552 -1063 Meds/Results Medications: Active Medications Generic Name Dose Route Start Last Admin Trade Name Freq PRN Reason Stop Dose Admin Acetaminophen 650 mg 05/05/24 01:19 05/07/24 03:16 Acetaminophen 325 Mg Tablet PO 650 mg Q6H PRN Administration Mild Pain (1-3) or Fever Amoxicillin/Clavulanate Potassium 1 tablet 05/06/24 13:15 05/06/24 20:36 Amoxicillin/Clavulanate K 875-125 Mg Tab PO 05/10/24 21:01 1 tablet Q12HR KASIE Administration Atorvastatin Calcium 40 mg 05/06/24 21:00 05/06/24 20:36 Atorvastatin 40 Mg Tablet PO 40 mg HS KASIE Administration Dextrose 12.5 gm 05/06/24 15:53 Dextrose 50% 25 Gm/50 Ml Syringe IV PUSH PRN PRN Hypoglycemia Protocol Empagliflozin 5 mg 05/07/24 09:00 Empagliflozin 5 Mg Tablet PO DAILY KASIE Enoxaparin Sodium 40 mg 05/07/24 09:00 Enoxaparin 40 Mg/0.4 Ml Syringe SUB-Q DAILY KASIE Glucagon 1 mg 05/06/24 15:53 Glucagon For Inj 1 Mg Vial IM PRN PRN Hypoglycemia Protocol Glucose 15 gm 05/06/24 15:53 Glucose Oral Gel 15 Gm Of Glucse In 37.5 Gm Tube PO PRN PRN Hypoglycemia Protocol Dextrose 1,000 mls @ 100 mls/hr 05/06/24 15:53 Dextrose 5% 1,000 Ml IVPB PRN PRN Hypoglycemia Protocol Insulin Aspart 3 - 6 units 05/06/24 17:00 05/06/24 18:30 Insulin Aspart (*Bkc) 100 Units/Ml SUB-Q 3 units TIDWM KASIE Administration Protocol Insulin Aspart 1 - 3 units 05/06/24 21:00 05/06/24 21:18 Insulin Aspart (*Bkc) 100 Units/Ml SUB-Q Not Given HS KASIE Protocol Levothyroxine Sodium 100 mcg 05/07/24 06:30 05/07/24 05:31 Levothyroxine Sodium 100 Mcg Tablet PO 100 mcg DAILY@0630 KASIE Administration Ondansetron HCl 4 mg 05/04/24 08:51 Ondansetron Inj 4 Mg/2 Ml Vial IV PUSH Q4H PRN Nausea Pantoprazole Sodium 40 mg 05/07/24 09:00 Pantoprazole Sodium Iv 40 Mg Vial IV PUSH DAILY KASIE Potassium Chloride 10 meq 05/07/24 09:00 Potassium Chloride 10 Meq Er Tablet PO DAILY KASIE Spironolactone 25 mg 05/06/24 13:10 05/06/24 14:15 Spironolactone 25 Mg Tablet PO 25 mg DAILY KASIE Administration Vancomycin HCl 125 mg 05/04/24 12:00 05/07/24 05:31 Vancomycin Hcl 125 Mg Oral Capsule PO 05/14/24 06:01 125 mg Q6HR KASIE Administration Radiology Results: ITS Impressions Abdomen/Pelvis CT 05/04/24 09:22 IMPRESSION: 1. Large gallstone at the rectum with rectal wall thickening consistent with likely constipation with fecal impaction and secondary stercoral colitis. 2. Findings suspicious for chronic cystitis and left-sided ascending urinary tract infection with mild left hydronephrosis with gas in the collecting system subtle haziness in the renal sinus fat. 3. New tree-in-bud opacities in the dependent right lower lobe consistent with endobronchial spread of disease such as aspiration or pneumonia. 4. Cardiomegaly with chronic small pericardial effusion. 5. 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 Labs Labs: Laboratory Results - last 24 hr 05/06/24 05/06/24 05/06/24 08:56 14:05 16:54 WBC RBC Hgb Hct MCV MCH MCHC RDW Plt Count MPV Immature Gran % (Auto) Neut % (Auto) Lymph % (Auto) [place] % (Auto) Eos % (Auto) Baso % (Auto) Lymph # (Auto) [place] # (Auto) Eos # (Auto) Baso # (Auto) Abs Immat Gran (auto) Absolute Neuts (auto) Absolute Nucleated RBC Nucleated RBC % Sodium Potassium Chloride Carbon Dioxide Anion Gap BUN Creatinine Estim Creat Clear Calc Estimated GFR Glucose POC Capillary Glucose 118 H 225 H 204 H Calcium Magnesium Total Bilirubin AST ALT Alkaline Phosphatase Total Protein Albumin 05/06/24 05/07/24 21:16 05:23 WBC 5.9 RBC 2.81 L Hgb 8.7 L Hct 28.2 L MCV 100.4 H MCH 31.0 MCHC 30.9 L RDW 16.7 H Plt Count 224 MPV 10.4 Immature Gran % (Auto) 0.3 Neut % (Auto) 64.4 Lymph % (Auto) 23.5 [place] % (Auto) 7.5 Eos % (Auto) 3.8 Baso % (Auto) 0.5 Lymph # (Auto) 1.38 [place] # (Auto) 0.4 Eos # (Auto) 0.2 Baso # (Auto) 0.0 Abs Immat Gran (auto) 0.02 Absolute Neuts (auto) 3.8 Absolute Nucleated RBC 0.000 Nucleated RBC % 0.0 Sodium 138 Potassium 4.1 Chloride 104 Carbon Dioxide 17 L Anion Gap 17 H BUN 51 H Creatinine 1.30 H Estim Creat Clear Calc 29 Estimated GFR 41 L Glucose 210 H POC Capillary Glucose 148 H Calcium 8.5 Magnesium 2.1 Total Bilirubin 1.1 AST 25 ALT 13 Alkaline Phosphatase 41 Total Protein 8.0 Albumin 3.7
[2024-05-07 09:02] LABS: Glucose Point of Care 156 mg/dl (65-105)
[2024-05-07] MEDS: POTASSIUM CHLORIDE 10 MEQ ER TABLET PO (09:23)
[2024-05-07] MEDS: AMOXICILLIN/CLAVULANATE K 875-125 MG TAB 1 TABLET PO (09:23)
[2024-05-07] MEDS: SPIRONOLACTONE 25 MG TABLET PO (09:23)
[2024-05-07] MEDS: PANTOPRAZOLE SODIUM IV 40 MG VIAL IV PUSH (09:23)
[2024-05-07] MEDS: EMPAGLIFLOZIN 5 MG TABLET PO (09:23)
--- NOTE | 2024-05-07 10:07 | P.DS_ITS ---
DS: Admitting Diagnosis Discharge Date 05/07 Admitting Diagnosis (1) GI bleed: Code(s): K92.2 - Gastrointestinal hemorrhage, unspecified Status: Acute (2) Colitis: Code(s): K52.9 - Noninfective gastroenteritis and colitis, unspecified Status: Acute (3) Acute kidney injury: Code(s): N17.9 - Acute kidney failure, unspecified Status: Acute DS: Discharge Diagnosis Discharge Diagnosis (1) GI bleed: Code(s): K92.2 - Gastrointestinal hemorrhage, unspecified Status: Acute (2) Colitis: Code(s): K52.9 - Noninfective gastroenteritis and colitis, unspecified Status: Acute (3) Acute kidney injury: Code(s): N17.9 - Acute kidney failure, unspecified Status: Acute DS: Summary Hospital Course Hospital Course: Per H&P, 69-year-old female past medical history of systolic heart failure, bilateral above-knee amputation, chronic indwelling Kaplan catheter, type 2 diabetes, recurrent C diff and hx of ESBL who presented to the ER on account coffee ground emesis and black stools. Patient is a poor historian however noted she started vomiting many times last night consisting in black fluids, also dark loose stools. denies any lightheadedness, no chest pain and no abd pain. She noted she takes ibuprofen occasionally for pain. ER eval notable for BP 98/53, HR 65, RR 15. labs notable for Cr 2.1 from 1.2, BUN 85, hb 11.2, C diff positive. CT AP showed large gallstone in the rectum with constipation and stercoral colitis, chronic cystitis, with left-sided ascending urinary tract with mild left hydronephrosis with gas in the collecting system, new tree in bud opacities in RLL . Chronic osteomyelitits at bilateral pubic bones. GI was consutled and patient started on protonix prior to admission The following med issues have been addressed during hospitalization Hypokalemia Likely from Diarrhea K 2.8 this morning, replaced Corrected GI bleed Patient presented with hematemesis and melena stool Continue Protonix GI initially recommended EGD this week, patient declined EGD or colonoscopy GI now noted no intervention, continue PPI daily GI on as needed Hemoglobin continue to drop. 8.7 today, I discussed with patient about risk of GI bleeding that may lead to . Patient still refused EGD or colonoscopy Changed to Protonix 40 mg daily p.o. Recurrent C diff diarrhea Patient has a history of recurrent C diff diarrhea resolving On oral vancomycin, likely will be on a long taper, GI or consulted. patient may need tapered dosing Had 2 bowel movement today Continue vancomycin p.o. till May 14 Right lower lobe pneumonia CT reviewed. Blood culture MRSA ordered On Zosyn, transition to Augmentin on discharge Continue Augmentin till May 10 ABDIRASHID dehydration from diarrhea and vomiting 1.3 from 2.10 Continue above treatment monitor renal function per PCP Left ascending left-sided urinary tract infection with hydronephrosis Chronic cystitis urology evaluated and noted that changes are chronic and no acute infection No need for intervention urology following S/p AKA Discharge patient back to intermediate today Time Spent with Patient Time attestation: Total time spent providing and/or coordinating discharge services: Exam Narrative: GENERAL: Pleasant, in no acute distress. Well-nourished. - EYES: EOMI. Anicteric. - HENT: Moist mucous membranes. - LUNGS: Clear to auscultation bilateral ly, no wheezing, rhonchi, or rales. - CARDIOVASCULAR: Regular rate and rhyth m. No murmur. No JVD. - ABDOMEN: Soft, non-tender and non-dist ended. No palpable masses. - EXTREMITIES: No edema. Peripheral puls es 2+. Non-tender. - NEUROLOGIC: No focal neurological defi cits. CN II-XII grossly intact. General weakness - PSYCHIATRIC: Awake, Alert and oriented x 3. Appropriate mood and affect. - SKIN: No rashes or lesions. Warm. - LYMPH: No cervical lymphadenopathy. DS: Data Data Completed and Pending Labs on day of discharge: Labs from last 24 hours 05/07/24 05/07/24 05/06/24 08:56 05:23 21:16 WBC 5.9 RBC 2.81 L Hgb 8.7 L Hct 28.2 L MCV 100.4 H MCH 31.0 MCHC 30.9 L RDW 16.7 H Plt Count 224 MPV 10.4 Immature Gran % (Auto) 0.3 Neut % (Auto) 64.4 Lymph % (Auto) 23.5 [place] % (Auto) 7.5 Eos % (Auto) 3.8 Baso % (Auto) 0.5 Lymph # (Auto) 1.38 [place] # (Auto) 0.4 Eos # (Auto) 0.2 Baso # (Auto) 0.0 Abs Immat Gran (auto) 0.02 Absolute Neuts (auto) 3.8 Absolute Nucleated RBC 0.000 Nucleated RBC % 0.0 Sodium 138 Potassium 4.1 Chloride 104 Carbon Dioxide 17 L Anion Gap 17 H BUN 51 H Creatinine 1.30 H Estim Creat Clear Calc 29 Estimated GFR 41 L Glucose 210 H POC Capillary Glucose 156 H 148 H Calcium 8.5 Magnesium 2.1 Total Bilirubin 1.1 AST 25 ALT 13 Alkaline Phosphatase 41 Total Protein 8.0 Albumin 3.7 05/06/24 05/06/24 16:54 14:05 WBC RBC Hgb Hct MCV MCH MCHC RDW Plt Count MPV Immature Gran % (Auto) Neut % (Auto) Lymph % (Auto) [place] % (Auto) Eos % (Auto) Baso % (Auto) Lymph # (Auto) [place] # (Auto) Eos # (Auto) Baso # (Auto) Abs Immat Gran (auto) Absolute Neuts (auto) Absolute Nucleated RBC Nucleated RBC % Sodium Potassium Chloride Carbon Dioxide Anion Gap BUN Creatinine Estim Creat Clear Calc Estimated GFR Glucose POC Capillary Glucose 204 H 225 H Calcium Magnesium Total Bilirubin AST ALT Alkaline Phosphatase Total Protein Albumin Preliminary micro results at discharge 05/04/24 12:45 Blood Culture - Preliminary Blood Klebsiella pneumoniae 05/04/24 21:49 Blood Culture - Preliminary Blood Discharge Plan Discharge Attending physician on discharge: Sallie Kasper Consulting providers: Kenneth Lamar; [place] Discharging Clinician: Sallie Kasper Anticipated Discharge Date/Time: 05/07/24 10:02 Patient Disposition: SNF Activity: as tolerated Diet: as tolerated Patient Language: Polish Stand Alone Forms: General Discharge Information Follow-up/Referrals: Kenneth Lamar MD [Physician] - (See GI at scheduled appointment) UNKNOWN,DOCTOR [Primary Care Provider] - (See primary care doctor in 1 week) Discharge Medications: New vancomycin 125 mg Capsule 125 mg PO Q6HR Qty: 32 0RF pantoprazole [Protonix] 40 mg tablet,delayed release (DR/EC) 40 mg PO HS 56 Days Qty: 56 0RF amoxicillin-pot clavulanate 875-125 mg tablet 1 tablet PO Q12H Qty: 7 0RF Continued atorvastatin 40 mg tablet 40 mg PO HS levothyroxine 100 mcg tablet 100 mcg PO DAILY gabapentin 300 mg capsule 300 mg PO TID potassium chloride 10 mEq capsule, extended release 10 meq PO DAILY silver sulfadiazine [Silvadene] 1 % cream 1 applic topical DAILY Rx Instructions: apply a 1.5 mm thickness (DME) calcium alginate 2 X 2 bandage See Rx Instructions .ROUTE Rx Instructions: As directed collagen (bovine) 100 % powder 1 applic topical DAILY Rx Instructions: apply a 1/4 inches inch thick layer, do not pack tightly; cover using a non- adherent dressing acetaminophen 325 mg capsule 325 mg PO Q4H PRN (Reason: pain) cyanocobalamin (vitamin B-12) 1,000 mcg capsule 1,000 mcg PO DAILY spironolactone 25 mg tablet 25 mg PO DAILY Calcium 600 + D(3) 600 mg-5 mcg (200 unit) capsule 600 cap PO DAILY Multi-Vitamin HP/Minerals Capsule 1 cap PO DAILY furosemide [Lasix] 40 mg tablet 40 mg PO DAILY sacubitril-valsartan [Entresto] 24-26 mg Tablet 1 tablet PO Q12H naloxone 4 mg/actuation Keyes,Non-Aerosol 1 spray INTRANASAL Q2M PRN (Reason: OPIOD OVERDOSE) Rx Instructions: spray 1 dose into RIGHT nostril; alternate nostrils w each dose until RESPONSIVE carvedilol [Coreg] 6.25 mg tablet 6.25 mg PO BID Rx Instructions: must administer with a meal/food tramadol 50 mg Tablet 50 mg PO Q8H PRN (Reason: pain) insulin aspart U-100 [Novolog U-100 Insulin aspart] 100 unit/mL solution See Rx Instructions .ROUTE .COMPLEX Qty: 10 0RF Rx Instructions: 150-200 3units, 201-250 6units, 251-300 9units, 301-350 12 units, 351-400 15 units, greater than 401-800 20 units and notify magnesium hydroxide [Milk of Magnesia] 400 mg/5 mL Suspension 400 mg PO HS PRN (Reason: Constipation) Rx Instructions: if no BM in 3 days magnesium citrate [Citroma] Solution 150 ml PO DAILY PRN (Reason: Constipation) Rx Instructions: if no results from enema Fleet Enema 19-7 gram/118 mL Enema 118 ml RECTAL DAILY PRN (Reason: Constipation) Rx Instructions: if no results 1 day after suppository omeprazole 20 mg Capsule,Delayed Release(Dr/Ec) 20 mg PO DAILY ferrous sulfate 325 mg (65 mg iron) Tablet,Delayed Release (Dr/Ec) 325 mg PO BID Qty: 90 0RF Jardiance 10 mg tablet 5 mg PO DAILY Qty: 90 0RF Calcium 600 + D(3) 600 mg-5 mcg (200 unit) capsule 1 cap PO DAILY Qty: 30 0RF Date of admission: 05/05/24 08:34 Primary Care Provider: UNKNOWN,DOCTOR Admitting Provider: Sreekanth Gloria Attending physician on admission: Sreekanth Gloria Condition: Serious
--- NOTE | 2024-05-13 06:46 | PC.NURSE ---
Blood cx growing Klebsiella pneumonia. It is susceptible to Augmentin and Ceftriaxone. Dejah Ortez, Pharm D aware.
== END 2024-05-07 11:15 | DRG 377 ==
LOC: ANHED 08:51 → ANHIMU 10:21 → ANH3MED 05-05 21:23
PROVIDERS: Admitting Provider Internal Medicine; Emergency Provider Emergency Medicine; Visit Provider Hospitalist
DX: K92.2 Gastrointestinal hemorrhage, unspecified (principal); G93.41 Metabolic encephalopathy; J18.9 Pneumonia, unspecified organism; A04.72 Enterocolitis due to Clostridium difficile, not specified as recurrent; N17.9 Acute kidney failure, unspecified; I50.42 Chronic combined systolic (congestive) and diastolic (congestive) heart failure; M86.68 Other chronic osteomyelitis, other site; E44.0 Moderate protein-calorie malnutrition; E87.6 Hypokalemia; K52.89 Other specified noninfective gastroenteritis and colitis; I11.0 Hypertensive heart disease with heart failure; E11.51 Type 2 diabetes mellitus with diabetic peripheral angiopathy without gangrene; E78.5 Hyperlipidemia, unspecified; K21.9 Gastro-esophageal reflux disease without esophagitis; F03.90 Unspecified dementia, unspecified severity, without behavioral disturbance, psychotic disturbance, mood disturbance, and anxiety; Z85.850 Personal history of malignant neoplasm of thyroid; Z85.3 Personal history of malignant neoplasm of breast; I25.2 Old myocardial infarction; Z89.612 Acquired absence of left leg above knee; Z89.611 Acquired absence of right leg above knee; Z79.4 Long term (current) use of insulin; Z68.24 Body mass index [BMI] 24.0-24.9, adult
CPT/HCPCS: 36415; 74176; 80053; 81001; 82728; 82948; 83540; 83550; 83605; 83735; 85025; 85610; 85730; 86850; 86900; 86901; 87040; 87086; 87186; 87493; 87641; 92523; 96361; 96374; 96375; 96376; 99285; A9270; G0378; J1815; J2470; J2543; J3475; J3480; J7030; J7040

== ENCOUNTER 2024-07-06 18:01 | Inpatient (IN) | payer MEDICARE, MEDICAID, SELFPAY ==
[2024-07-06] VITALS (52 sets, daily range): BP systolic 52–119; BP diastolic 28–93; PULSE 35–94; RESP 13–22; TEMP 37.1–38.1; O2SAT 98–100; BMI 25.1
--- NOTE | ~2024-07-06 | US_ITS ---
EXAMINATION: US renal BI DATE: 07/12/2024 10:19 INDICATION: Renal failure TECHNIQUE: Multiple ultrasound grayscale images of the kidneys were obtained. COMPARISON: None. FINDINGS: The right kidney measures 11.5 x 5.1 x 5.0 cm. The left kidney measures 10.6 x 5.5 x 4.2 cm. The kidn eys demonstrate normal echogenicity. There is no hydronephrosis in either kidney. No stones identifi ed. Bladder is decompressed around a Kaplan catheter which limits evaluation. IMPRESSION: 1. Normal kidneys without hydronephrosis. Reviewed, dictated and finalized at location A.
--- NOTE | ~2024-07-06 | CT_ITS ---
CT brain wo con Ordering provider: Lazaro Pederson MD History: 69 years Female with . AMS . Comparison: None. Technique: CT of the head without contrast. Radiation reduction technique utilized.The dose-length pr oduct was 908 mGy-cm. FINDINGS: BRAIN PARENCHYMA AND CSF SPACES: Mild leukoaraiosis and diffuse cortical atrophy. Mild atheromatous d isease. Bilateral calcification in the area of the cerebellum unchanged. No midline shift, mass effec t or hemorrhage. The brain parenchyma and CSF spaces are otherwise normal. VISUALIZED PARANASAL SINUSES: Well aerated. MASTOIDS: Well aerated. BONES: The bones appear intact. SOFT TISSUES: Visualized nasopharynx is normal. Superficial soft tissues are normal. IMPRESSION: No acute intracranial findings. Reviewed, dictated and finalized at location A.
--- NOTE | ~2024-07-06 | CT_ITS ---
CT chest abdomen pelvis wo con Ordering provider: Lazaro Pederson History: . AMS, sepsis . Comparison: January 30, 2024 Technique: CT chest without IV contrast. CT abdomen and pelvis without oral and IV contrast. Radiatio n reduction technique utilized.The dose-length product was 1151.02 mGy-cm. FINDINGS: The study is limited due to lack of IV contrast. CHEST: Right breast implant or seroma unchanged from previous examination.. --VISUALIZED THORACIC INLET: Normal as visualized. Left central line with the tip in the upper superior vena cava. --MEDIASTINUM: Aorta/coronary arteries: Moderate atheromatous disease. Heart/other: The heart is moderately enlarged. Minimal pericardial effusion. Lymph nodes: No mediastinal or hilar adenopathy. Subcarinal calcified lymph nodes. --LUNGS: No pulmonary nodules or masses. No infiltrates or effusions. No pneumothorax. Dependent atel ectatic changes. Subsegmental atelectasis in the left upper and lower lobe. --MUSCULOSKELETAL: Soft tissues: The superficial soft tissues are normal. Bones: Age appropriate degenerative changes of the spine. Dextroscoliosis. ABDOMEN/PELVIS: --MUSCULOSKELETAL: Bones: Age appropriate degenerative changes of the spine. Widening of the symphysis pubis. Bilateral hip osteoarthritic changes. Bilateral sacroiliitis. Superficial soft tissues: Thickened skin over the left breast. Seroma calcification is seen in the an terior abdominal wall measuring 7.9 x 9x 15.1 cm. Otherwise, The superficial soft tissues are normal. --UPPER ABDOMINAL ORGANS: Liver: Normal. Gallbladder: Normal. Spleen: Normal. Calcified granulomas. Stomach/duodenum: Small sliding hiatus hernia. Pancreas: Atrophic changes. Adrenals: Normal. Kidneys: Air is seen in the left renal pelvis which is slightly dilated. Dilated left ureter also see n. No stones. Infection cannot be excluded. Clinical correlation and follow-up advised. --PELVIC ORGANS: The bladder is normal. No bladder stones. Air is seen in the urinary bladder with F oley's catheter. Thickened wall of the urinary bladder is seen. --BOWEL AND MESENTERY: Colon: Thickened wall of the rectum which may indicate proctitis.. Clinical evaluation advised. No ev idence of diverticulitis. Fecal material is loaded in the colon. Normal appendix. Small Bowel: Normal. No obstruction. Peritoneum/mesentery: No free air or free fluid. No mesenteric lymphadenopathy. --RETROPERITONEUM: Severe atheromatous disease of the abdominal aorta. No retroperitoneal lymphaden opathy. IMPRESSION: CHEST: 1. Cardiomegaly with pericardial effusion. 2. No evidence of pneumonia or pneumothorax. 3. Right anterior chest wall seroma versus breast implant. ABDOMEN/PELVIS: 1. No evidence of appendicitis, diverticulitis or intestinal obstruction. 2. Thickened wall of the rectum which may indicate proctitis. Clinical correlation advised. 3. Air seen in the left pelvicalyceal system with hydronephrotic changes. Infection cannot be exclud ed. Further evaluation advised. 4. Seen in the area bladder with Kaplan's catheter. 5. Seroma in the anterior abdominal wall with wall calcification. Reviewed, dictated and finalized at location A. IMPRESSION: CHEST: 1. Cardiomegaly with pericardial effusion. 2. No evidence of pneumonia or pneumothorax. 3. Right anterior chest wall seroma versus breast implant. ABDOMEN/PELVIS: 1. No evidence of appendicitis, diverticulitis or intestinal obstruction. 2. Thickened wall of the rectum which may indicate proctitis. Clinical correla tion advised. 3. Air seen in the left pelvicalyceal system with hydronephrotic changes. Infe ction cannot be excluded. Further evaluation advised. 4. Seen in the area bladder with Kaplan's catheter. 5. Seroma in the anterior abdominal wall with wall calcification.
--- NOTE | ~2024-07-06 | XR_ITS ---
XR chest 1V portable Ordering provider: Lazaro Pederson MD History: 69 years Female with . septic . Comparison: February 23, 2024 FINDINGS: MEDIASTINUM: The cardiac silhouette is moderately enlarged. Left central line with the tip at the giancarlo ction of the superior vena cava and brachiocephalic vein. LUNGS: No effusions or pneumothorax. Bilateral perihilar opacification suggestive of pneumonia. OTHER: No free air under the diaphragm. IMPRESSION: Bilateral perihilar pneumonia. The left central line tip is noted at the junction of the superior vena cava and left brachiocephali c vein. Reviewed, dictated and finalized at location A. IMPRESSION: Bilateral perihilar pneumonia. The left central line tip is noted at the junction of the superior vena cava a nd left brachiocephalic vein.
--- NOTE | 2024-07-06 18:20 | ECG_ITS ---
Test Date: 2024-07-06 18:59:50 Measurements Intervals [place] Rate: 89 P: 58 NH: 239 QRS: -67 QRSD: 95 T: 118 QT: 348 QTc: 425 Interpretive Statements SINUS RHYTHM WITH ATRIAL PREMATURE COMPLEXES WITH FIRST DEGREE AV BLOCK LEFT AXIS DEVIATION LOW QRS VOLTAGE IN LIMB LEADS EXTENSIVE ANTERIOR INFARCT, AGE INDETERMINATE BORDERLINE ST-T WAVE ABNORMALITY- HIGH LATERAL LEADS BASELINE WANDER- V2 ABNORMAL ECG Compared to ECG 02/15/2024 11:03:41 HEART RATE HAS INCREASED Electronically Signed On 07-06-2024 20:49:37 CDT by Rowdy Law D.O.
[2024-07-06] MEDS: SODIUM CHLORIDE 0.9% IV 800 ML 999 ML IV CONT (18:27)
[2024-07-06] MEDS: SODIUM CHLORIDE 0.9% IV 1,000 ML 999 ML IV CONT ×2 (18:29→20:18)
[2024-07-06] MEDS: NOREPINEPHRINE 8 MG/D5W 250 ML 8 MG/250 ML BAG 9.38 MG IV CONT (18:29)
[2024-07-06 18:31] LABS: Hematocrit 30.8 % (37.0-47.0); Hemoglobin 9.8 g/dL (12.0-15.0); Mean Corpuscular HGB Conc 31.8 g/dl (32-36); Mean Corpuscular Hemoglobin 30.5 pg (26-34); Mean Platelet Volume 9.8 fl (7.4-10.4); Platelet Count Result 268 k/mm3 (150-375); Red Blood Count 3.21 M/mm3 (4.2-5.4); White Blood Count 18.9 K/mm3 (4.5-10.0)
--- OUTSIDE RECORDS SUMMARY | 2024-07-06 18:38 | XMS_ITS | Referral Summary ---
Author Organization [facility] Address [address] [place] [address] Phone Care Team Providers Care Insurance Collector Name Role Phone Damon SwansonTesha DO Unavailable Zeke Puente MD Primary Care Provider [phone] Sarah Baldwin MD, Karl Romero Unavailable Arley Peña MD Unavailable [phone] Allergies Active Allergy Reactions Criticality Noted Date Comments Codeine Phosphate Nausea & Vomiting Low 10/08/2012 Medications amLODIPine (NORVASC) 10 mg tablet Take 1 tablet (10 mg total) by mouth daily Active atorvastatin (LIPITOR) 40 mg tablet Take 1 tablet (40 mg total) by mouth daily Active levothyroxine (SYNTHROID) 100 mcg tablet Take 1 tablet (100 mcg total) by mouth fingerprint expert before breakfast 30 tablet 1 1 Active [...] (06/21/2020): Added automatically from request for surgery [id number] Sepsis 11/20/2019 Acute hematogenous osteomyelitis of right foot 0 11/20/2019 PVD (peripheral vascular disease) 11/20/2019 Anemia 11/20/2019 COVID-19 11/20/2019 Hypothyroidism 11/20/2019 Hyperlipidemia 11/20/2019 Pressure injury of sacral region, stage 4 2019 Moderate malnutrition 11/07/2019 Malignant neoplasm of upper- outer quadrant [...] often do you attend chur ch or shinto services? 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 Minority populations were underrepresented and children were not included. (Diabetes Care 31:6354-3075, 2008). The eAG is not equivalent to a fasting glucose. Blood specimen (specimen) 06/18/2020 5:43 AM CDT 06/18/2020 6:23 AM CDT us Summer Anguiano MD LAB BLOOD ORDERABLES Final Result [facility] [address] [place] [address] * Screening Mammogram Bilateral W Zac (12/26/2016 [...] signed by: Edwar Deng M.D., md/:12/26/2016 11:34:53 Intervention Nurse: Layne VIVEROS (R)(M), [facility] letter sent: Normal Exam Reading location: [facility] BI-RADS: 2 Benign [EOD] Narrative 12/26/2016 11:38 [...] 12/18/2015 mammogram, 11/07/2014 mammogram, and 10/30/2013 mammogram [facility]. BREAST TISSUE: The tissue of both [...] dated: 12/18/2015 mammogram,11/07/2014 mammogram, and 10/30/2013 mammogram [facility]. BREAST TISSUE: The tissue of both [...] signed by: Edwar Deng M.D., md/:12/26/2016 11:34:53 Intervention Nurse: Layne Iniguez RT (R)(M), [facility] letter sent: Normal Exam Reading location: 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
--- OUTSIDE RECORDS SUMMARY | 2024-07-06 18:38 | XMS_ITS | Clinical Summary ---
Author Organization [facility] Address [address] [place] [address] Care Team Providers Care Promotions Manager Name Role Phone Unavailable Primary Care Provider Unavailabl e Source Comments [facility],non-owned Affiliates and Associated Physician Practices is amultiple site organization consisting of ambulatory clinics and hospital sitesin [place], [place], [place] and [place]. This disclosure is being madepursuant to the Care Everywhere program and may not contain all information available regarding this patient. 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
--- OUTSIDE RECORDS SUMMARY | 2024-07-06 18:38 | XMS_ITS | Clinical Summary ---
Author Organization [facility] Address [address] [place] [address] Phone Care Team Providers Care Neurology Nurse Name Role Phone Damon SwansonTesha DO Unavailable [phone] Zeke Puente MD Primary Care Provider [phone] Sarah Baldwin MD, Karl Romero Unavailable [phone] Arley Peña MD Unavailable [phone] Allergies Active Allergy Reactions Criticality Noted Date Comments Codeine Phosphate Nausea & Vomiting Low 10/08/2012 Medications amLODIPine (NORVASC) 10 mg tablet Take 1 tablet (10 mg total) by mouth daily Active atorvastatin (LIPITOR) 40 mg tablet Take 1 tablet (40 mg total) by mouth daily Active levothyroxine (SYNTHROID) 100 mcg tablet Take 1 tablet (100 mcg total) by mouth phosphoric acid operator before breakfast 30 tablet 1 1 [...] (06/21/2020): Added automatically from request for surgery [id number] Sepsis 11/20/2019 Acute hematogenous osteomyelitis of right [...] often do you attend chur ch or christian services? 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 Gender Identity Not on file Sexual Orientation [...] 06/27/2022 5:02 PM CDT pt b [place] AKLeslie Body Mass Index 82.17 06/27/2022 5:02 PM [...] LAB BLOOD ORDERABLE S Final Result [facility] 1 [facility] Department [place] [address] * (ABNORMAL) Hemoglobin A1c (06/18/2020 5:43 AM CDT) Hgb A1C 8.0(H) 4.0 - 5.6 % [facility] Estimated Average Glucose 183 mg/dL [facility] Comment: The ADA recommends reporting an estimated Average Glucose (eAG) with all Hemoglobin A1c results using the equation derived from a study of 507 normal and diabetic adults. Minority populations were underrepresented and children were not included. (Diabetes Care 31:6628-8480, 2008). The eAG is not equivalent to a fasting glucose. Blood specimen (specimen) 06/18/2020 5:43 AM CDT 06/18/2020 6:23 AM CDT us Summer Anguiano MD LAB BLOOD ORDERABLES Final Result [facility] [address] Department [place] [address] * Screening Mammogram Bilateral W Zac (12/26/2016 [...] signed by: Edwar Deng M.D., md/:12/26/2016 11:34:53 Edge Bonder: Layne Iniguez RT (R)(M), [facility] letter sent: Normal Exam Reading location: [facility] BI-RADS: 2 Benign [EOD] Narrative 12/26/2016 [...] mammogram, 11/07/2014 mammogram, and 10/30/2013 mammogram - [facility]. BREAST TISSUE: The tissue of both [...] 12/18/2015 mammogram,11/07/2014 mammogram, and 10/30/2013 mammogram - [facility]. 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 ADVANCE DIRECTIVE 09/04/2023 2:51 PM POLST - Phys Order for PT Preferences ADVANCE DIRECTIVE 02/28/2019 12:00 AM [facility] OF PROJECT LEADER FINANCIAL/MEDICAL * Full Code (Latest Code Status [...] 12:51 AM 11/20/2019 10:35 PM Care Teams Neurology Nurse Relationship Specialty Start Date End Date Zeke Puente MD [address] [place], [place] [id number] PCP - General 12/02/18 Damon Swanson DO [address] [place] [id number] Medical Oncologist/Liner Checker Hematology and Oncology 10/25/17 Karl Smith Jr., MD [address] [place] [address] Surgeon General Surgery 11/07/19 Arley Peña MD [address] [facility] [place] [address] Surgeon General Surgery 06/26/20
--- OUTSIDE RECORDS SUMMARY | 2024-07-06 18:38 | XMS_ITS | Clinical Summary ---
Author Organization [facility] Address [facility] [place] [address] Care Team Providers Care Clip Loading Machine Adjuster Name Role Phone Damon Swanson MD Unavailable [phone] Don Branham MD Primary Care Provider [phone] Allergies Active Allergy Reactions Criticality Noted Date [...] 06/28/2019 Generalized weakness 06/06/2019 Hyperglycemia 06/05/2019 Sepsis ([facility]) 05/07/2019 Ulcer of lower limb, left, l imited to breakdown of skin ([facility]) 03/12/2019 Peripheral vascular disease 03/12/2019 Malignant neoplasm of upper- 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, estrogen receptor negative ([facility]) 11/13/2017 Immunizations Immunization Administration Dates Next Due Tdap (Boostrix) 06/28/2019 [...] 67 07/19/2019 3:20 AM CDT Temperature 36.8 C (98.2 F) 07/19/2019 3:20 AM CDT Respiratory Rate 18 07/19/2019 3:20 AM CDT [...] 1955 Hepatitis C 1973 Mammogram Screening 1995 Pneumococcal Vaccine: 50+ Years (1 of 1 - PCV) 2005 Zoster Vaccines (1 of 2) 2005 Annual Medicare Wellness Visit 01/15/2020 Dexa Scan (General) 01/15/2020 COVID-19 Vaccine (1 - 2023-2 5 season) 2023 DTaP, Tdap and Td Vaccines ( 3 - Td or Tdap) 06/27/2029 06/28/2019, 06/28/2019 RSV Immunization or 60+ Years (1 - 1-dose 75+ series) 2030 Meningococcal B Vaccine Aged Out No l onger eligible based on patient's age to complete this topic Meningococcal Vaccine Aged Out No kailey debbie eligible based on patient's age to complete this topic RSV Immunizations Under 20 Months Aged Out No longer eligible b ased on patient's age to complete this topic Additional Health Concerns Infection Onset Date Last Indicated MRSA Comment:MRSA Blood Identified 06/28/2019 06/28/2019 07/01/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 07/08/2019 07/08/2019 Insurance MEDICARE MEDICAID MEDICAID Advance Directives Documents on File Type Date Recorded 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
[2024-07-06 18:39] LABS: Lactic Acid Reflex 0.9 mmol/L (0.7-2.0)
--- NOTE | 2024-07-06 18:42 | ED_ITS ---
HPI - Altered Mental Status General Chief Complaint: Altered Mental Status Stated Complaint: altered mental status History of Present Illness HPI narrative: 69-year-old female with extensive past medical history including systolic heart failure, bilateral [id number] amputation, chronic indwelling Kaplan catheter with history of ESBL infections, recurrent C difficile, type 2 diabetes and GI bleeding. Patient presents to the emergency department nearly unresponsive in altered. EMS was called to local nursing facility for low blood pressure, fever and altered mental status. Patient appears to be septic from suspected urinary tract infection she has a very floridly cloudy Kaplan catheter with debris. She is altered and hypotensive. Brought back in the room 4. For resuscitation and interventions. Patient is altered and not able to provide collateral information. EMS report and correction documentation for assistance. She is DNR, DNI per signed paperwork. Related Data Home Medications ?Medication ?Instructions ?Recorded ?Confirmed ?Last Taken ?Type atorvastatin 40 mg tablet 40 mg PO HS 12/05/21 05/21/24 02/22/24 History levothyroxine 100 mcg tablet 100 mcg PO DAILY 12/05/21 05/21/24 Unknown History gabapentin 300 mg capsule 300 mg PO TID 05/16/22 05/21/24 Unknown History potassium chloride 10 mEq 10 meq PO DAILY 05/16/22 05/21/24 Unknown History capsule,extended release furosemide 40 mg tablet (Lasix) 40 mg PO DAILY 01/10/24 05/21/24 Unknown History carvedilol 6.25 mg tablet (Coreg) 6.25 mg PO BID 01/30/24 05/21/24 02/23/24 History naloxone 4 mg/actuation nasal spray 1 spray intranasal Q2M PRN OPIOD 01/30/24 05/21/24 Unknown History OVERDOSE sacubitril 24 mg-valsartan 26 mg 1 tablet PO Q12H 01/30/24 05/21/24 Unknown History tablet (Entresto) tramadol 50 mg tablet 50 mg PO Q8H PRN pain 01/30/24 05/21/24 Unknown History magnesium citrate (Citroma oral 150 ml PO DAILY PRN Constipation 02/15/24 05/21/24 Unknown History solution) magnesium hydroxide 400 mg/5 mL 400 mg PO HS PRN Constipation 02/15/24 05/21/24 Unknown History oral suspension (Milk of Magnesia) omeprazole 20 mg capsule,delayed 20 mg PO DAILY 02/15/24 05/21/24 Unknown History release sodium phosphates 19 gram-7 118 ml RECTAL DAILY PRN 02/15/24 05/21/24 Unknown History gram/118 mL enema (Fleet Enema) Constipation acetaminophen 325 mg capsule 325 mg PO Q4H PRN pain 05/04/24 05/21/24 Unknown History calcium 600 mg (as 600 cap PO DAILY 05/04/24 05/21/24 Unknown History carbonate)-vitamin D3 5 mcg (200 unit) capsule (Calcium 600 + D(3)) calcium alginate 2 X 2 bandage 05/04/24 05/21/24 Unknown History collagen (bovine) 100 % topical 1 applic topical DAILY 05/04/24 05/21/24 Unknown History powder cyanocobalamin (vitamin B-12) 1,000 mcg PO DAILY 05/04/24 05/21/24 Unknown History 1,000 mcg capsule multivitamin,tx-minerals 1 cap PO DAILY 05/04/24 05/21/24 Unknown History (Multi-Vitamin HP/Minerals capsule) silver sulfadiazine 1 % topical 1 applic topical DAILY sacrum wound 05/04/24 05/21/24 Unknown History cream (Silvadene) spironolactone 25 mg tablet 25 mg PO DAILY 05/04/24 05/21/24 Unknown History Allergies Allergy/AdvReac Type Severity Reaction Status Date / Time codeine Allergy Unknown Verified 05/21/24 10:56 Review of Systems 2 Review of Systems: As reviewed above in [facility] Past Medical History Medical History Anemia Pneumonia Abnormal CT of the abdomen Stercoral colitis Coffee ground emesis Urinary tract infection due to extended-spectrum beta lactamase (ESBL) producing Escherichia coli Type 2 diabetes mellitus Hypertension C. difficile diarrhea (01/2024) Gastroesophageal reflux disease History of breast cancer Dyslipidemia Thyroid cancer Hyperlipidemia Peripheral vascular disease Non-STEMI (non-ST elevated myocardial infarction) Combined systolic and diastolic congestive heart failure echocardiogram 12/06/2021: Severely reduced right ventricular systolic function with EF of 20-25%, moderate left ventricular chamber enlargement, moderate left atrial enlargement, grade 2 diastolic dysfunction Neuropathy Psychiatric disorder Dementia Surgical History Surgical History History of above-knee amputation of both lower extremities History of thyroid surgery History of right breast implant Patient reports that it was radiation implant History of lumpectomy of left breast Family History Family History Mother Family history of type 2 diabetes mellitus, Onset Age: 55 Father Acute myocardial infarction, Onset Age: 58 Social History Social History Social History: Surrogate medical decision maker: Ailyn Turner, daughter. Code status: Do not resuscitate with selective treatment (paperwork accompanies the patient). Smoking status: Unknown if ever smoked Second hand tobacco smoke exposure: No Alcohol intake: unknown Substance use: unknown Substance use type: does not use Do You Feel Safe in your Home?: Yes Lack of Transportation: No Lack of Food: Never True Current Housing: I Have Housing Concerned About Future Housing: No Difficulty Paying Gas/Electric Bills: No Difficulty Paying for Meds: No Currently Unemployed: No Education: High School Diploma/GED Difficulty w/ Childcare or Family Care: No Spiritual care concerns: No Exam 2 Narrative: GENERAL: Ill-appearing and lethargic, arousable with sternal rub, not in any physical or respiratory distress. Foul appearing Kaplan catheter with cloudy urine at bedside in collection bag HEAD: [Normocephalic, atraumatic.] EYES: [PERRLA and EOMI.] ENT: Nares clear, no rhinorrhea or epistaxis. Mucous membranes moist. NECK: Supple. CHEST: [Clear to auscultation. No respiratory distress.] HEART: [Regular rate and rhythm]. No murmur heard. [Normal peripheral pulses.] ABDOMEN: [Soft, nondistended], [nontender], [No rigidity or guarding] EXTREMITIES: Bilateral [id number] amputee, no pitting edema to the extremities. SKIN: Thickened skin, no rash. NEURO: Moves bilateral upper extremities, not alert or oriented, arouses to sternal rub. Course Vital Signs Vital signs: Vital Signs Pulse Rate 89 07/06/24 18:01 Blood Pressure 57/34 L 07/06/24 18:01 Temperature 37.6 C 04/26/25 21:05 Pulse Rate 85 07/06/24 20:30 Respiratory Rate 17 07/06/24 19:11 Blood Pressure 90/39 L 07/06/24 20:30 Pulse Oximetry 98 07/06/24 19:25 Oxygen Delivery Nasal Cannula 07/06/24 19:25 Oxygen Flow Rate 2 07/06/24 19:25 Procedures Central Line Placement Left IJ: Central Line Date: 07/06/24 Central Line Time: 18:40 Performed Emergently - Given emergent patient condition, temporal constraints may have precluded informed consent.: Yes Time Out Performed: Yes Patient Placed on Monitor/Pulse Ox: Yes Max. Sterile Barrier Technique: Caps and hand hygiene Central Line Prep: 2% chlorhexidine scrub Emergently Placed, Full Sterile: prep not done Technique: US-Guided Local Anesthetic: lidocaine 2% Amount of anesthesia used (mL): 5 Ultrasound Used for Placement: Yes Central Line Lumen Inserted: triple Post Procedure: sutured in place, good blood return, all ports aspirated, flushed, capped and sterile dressing applied Post Procedure X-Ray: tip of catheter in good position and no pneumothorax seen Patient Tolerated Procedure: well and no complications Complications: none EJ/Peripheral Line Arm R: EJ/Peripheral Line Date: 07/06/24 EJ/Peripheral Line Time: 18:19 Time Out Performed: Yes Skin Cleansed in Sterile Fashion: Yes Ultrasound Guided: Yes Size (gauge): 20 IV Secured and Dressing Applied: Yes Patient Tolerated Procedure: well and no complications MDM - Altered Mental Status MDM Narrative Medical decision making narrative: 69-year-old female with a past medical history including systolic heart failure, bilateral [id number] amputations, chronic indwelling Kaplan catheter with ESBL infections, recurrent C diff, type 2 diabetes. Patient presents to the emergency department with altered mental status, hypotension, fever. She is altered and required sternal rub to arouse. She was brought back in the room 4. For medical evaluation and resuscitation. Patient appear septic based on her obvious source of infection most likely being urine with cloudy foul-smelling urine at bedside in the indwelling Kaplan catheter. Patient is hypotensive and febrile. She was given 30 cc/kg bolus of normal saline and started on peripheral norepinephrine given her severely low blood pressures. Left internal jugular central venous catheter was placed at bedside under emergent conditions given patient's unstable vital signs. She had clinical improvement after fluids and norepinephrine. She was maintaining her airway and now awake and able to answer questions although still altered. Septic workup was ordered including CT of the head, chest x-ray, CBC, CMP, lipase, lactic acid, blood cultures. She was given Tylenol for her fever per rectum. Chest x-ray obtained after central line placement shows adequate position without complication. There is some bilateral perihilar pneumonia which is visualized but her most likely source is urine causing her symptomatology including severe sepsis and septic shock. She is placed on meropenem based on her cultures from previous records. Her blood pressure is slightly improved after fluid bolus and she received greater than 30 cc/kg is in totality but still appears very dry and dehydrated. Given additional fluids and maintenance started. Norepinephrine was up titrated to 10. She has an elevated white count of 18k, hemoglobin of 9.8 which is at her baseline, platelet count of 268. Coag studies largely unremarkable. Normal INR. Electrolytes show a pre renal ABDIRASHID on CKD, anion gap and acidosis, mildly elevated potassium 5.1. Glucose 168. Normal LFTs. Negative initial lactic acid. CT of the head shows no acute intracranial hemorrhage, no acute findings. Patient re-evaluated after fluids and improved. New blood pressure 100/58 with a map of 70. She is now stable for ICU admission. Awaiting hospitalist and mental hygiene consultant consultations for admission placement. Spoke to the mental hygiene consultant Dr. Colindres who recommended CT chest abdomen pelvis given her presentation with altered mental status. CT was ordered. Spoke to the hospitalist Dr. Jauregui who accepted patient to the ICU after CT scan. She remains improved after fluid resuscitation and now is blood pressure 119/64, norepinephrine being titrated at bedside. Patient care signed over to oncoming ER physician at 9:[address] results and admission to the ICU. Medical Records Attestation: I reviewed the patient's medical records. Lab Data Attestation: I reviewed the patient's lab results. 07/06/24 18:23 07/06/24 18:23 Labs: Lab Results 07/06/24 07/06/24 Range/Units 18:23 18:57 WBC 18.9 H (4.5-10.0) K/mm3 RBC 3.21 L (4.2-5.4) M/mm3 Hgb 9.8 L (12.0-15.0) g/dL Hct 30.8 L (37.0-47.0) % MCV 96.0 (80-100) fl MCH 30.5 (26-34) pg MCHC 31.8 L (32-36) g/dl RDW 15.0 H (11.5-14.5) % Plt Count 268 (150-375) k/mm3 MPV 9.8 (7.4-10.4) fl Immature Gran % (Auto) Not Reportable Neut % (Auto) Not Reportable Lymph % (Auto) Not Reportable [place] % (Auto) Not Reportable Eos % (Auto) Not Reportable Baso % (Auto) Not Reportable Lymph # (Auto) Not Reportable [place] # (Auto) Not Reportable Eos # (Auto) Not Reportable Baso # (Auto) Not Reportable Abs Immat Gran (auto) Not Reportable Absolute Neuts (auto) Not Reportable Absolute Nucleated RBC Not Reportable Total Counted 100 Neutrophils % (Manual) 83 H (46-73) % Band Neutrophils % 9 H (0-6) % Lymphocytes % (Manual) 7.0 L (18-44) % Monocytes % (Manual) 1 L (3-9) % Nucleated RBC % Not Reportable Abs Neuts (Manual) 17.38 H (1.7-7.2) K/mm3 Abs Lymphs (Manual) 1.32 (1.1-4.5) K/mm3 Abs Monocytes (Manual) 0.18 (0.1-0.90) K/mm3 Platelet Estimate Adequate (Adequate) Hypochromasia 1+ Anisocytosis 1+ Schistocytes None seen PT 17.8 H (11.1-14.7) Seconds INR 1.4 APTT 32.8 (22.3-36.8) Seconds Sodium 136 L (137-145) mmol/L Potassium 5.1 H (3.4-5.0) mmol/L Chloride 103 (98-107) mmol/L Carbon Dioxide 19 L (22-30) mmol/L Anion Gap 14 H (4-12) mmol/L BUN 80 H D (7-17) mg/dL Creatinine 2.03 H (0.7-1.0) mg/dL Estim Creat Clear Calc Not Reportable Estimated GFR 24 L (59 - ) Glucose 168 H (65-110) mg/dL Lactic Acid 0.9 (0.7-2.0) mmol/L Calcium 9.1 (8.4-10.2) mg/dL Total Bilirubin 1.1 (0.2-1.3) mg/dL AST 26 (14-36) U/L ALT 16 (6-35) U/L Alkaline Phosphatase 54 (38-126) U/L C-Reactive Protein 8.6 H (<1.0) mg/dL Total Protein 9.0 H (6.3-8.2) g/dL Albumin 3.9 (3.5-5.1) g/dL Urine Color Yellow (Yellow) Urine Appearance Turbid H (Clear) Urine pH 5.0 (5.0-9.0) Ur Specific [place] 1.014 (1.001-1.035) Urine Protein 3+ H (Negative) mg/dL Urine Glucose (UA) 2+ H (Negative) mg/dL Urine Ketones Negative (Negative) mg/dL Ur Blood (Man) 2+ H (Negative) Urine Nitrate Negative (Negative) Urine Bilirubin Negative (Negative) Urine Urobilinogen 0.2 (<2.0) mg/dL Add Ur Microanalysis Reviewed Leukocyte Esterase Rfl 3+ H (Negative) PABLO/UL Urine RBC 51-100 H (0-2) /hpf Urine WBC >100 H (0-3) /hpf Ur Squamous Epith Cells Moderate (Few) /hpf Urine Bacteria 2+ H /hpf Urine Casts 3-5 Urine Yeast (Budding) Present H (None) /hpf Imaging Data Attestation: I personally reviewed and interpreted this imaging study as follows: My impression: Impressions Chest X-Ray 07/06/24 18:54 IMPRESSION: Bilateral perihilar pneumonia. The left central line tip is noted at the junction of the superior vena cava and left brachiocephalic vein. Head CT 07/06/24 19:40 IMPRESSION: No acute intracranial findings. Critical Care Time Critical Care Time Critical Care Time: Yes Total Critical Care Time: 90 Discharge Plan Discharge Clinical Impression: Septic shock, Urinary tract infection, History of ESBL E. coli infection, Acute alteration in mental status, DNR (do not resuscitate) Patient Disposition: Still a Patient Condition: Serious Patient Language: Lithuanian Prescriptions: No Action atorvastatin 40 mg tablet 40 mg PO HS levothyroxine 100 mcg tablet 100 mcg PO DAILY gabapentin 300 mg capsule 300 mg PO TID potassium chloride 10 mEq capsule, extended release 10 meq PO DAILY silver sulfadiazine [Silvadene] 1 % cream 1 applic topical DAILY Rx Instructions: apply a 1.5 mm thickness (DME) calcium alginate 2 X 2 bandage See Rx Instructions .Route Rx Instructions: As directed collagen (bovine) 100 % powder 1 applic topical DAILY Rx Instructions: apply a 1/4 inches inch thick layer, do not pack tightly; cover using a non- adherent dressing acetaminophen 325 mg capsule 325 mg PO Q4H PRN (Reason: pain) cyanocobalamin (vitamin B-12) 1,000 mcg capsule 1,000 mcg PO DAILY spironolactone 25 mg tablet 25 mg PO DAILY Calcium 600 + D(3) 600 mg-5 mcg (200 unit) capsule 600 cap PO DAILY Multi-Vitamin HP/Minerals Capsule 1 cap PO DAILY vancomycin 125 mg Capsule 125 mg PO Q6HR Qty: 32 0RF amoxicillin-pot clavulanate 875-125 mg tablet 1 tablet PO Q12H Qty: 7 0RF pantoprazole [Protonix] 40 mg tablet,delayed release (DR/EC) 40 mg PO HS 56 Days Qty: 56 0RF furosemide [Lasix] 40 mg tablet 40 mg PO DAILY sacubitril-valsartan [Entresto] 24-26 mg Tablet 1 tablet PO Q12H naloxone 4 mg/actuation [place],Non-Aerosol 1 spray INTRANASAL Q2M PRN (Reason: OPIOD OVERDOSE) Rx Instructions: spray 1 dose into RIGHT nostril; alternate nostrils w each dose until RESPONSIVE carvedilol [Coreg] 6.25 mg tablet 6.25 mg PO BID Rx Instructions: must administer with a meal/food tramadol 50 mg Tablet 50 mg PO Q8H PRN (Reason: pain) insulin aspart U-100 [Novolog U-100 Insulin aspart] 100 unit/mL solution See Rx Instructions .ROUTE .COMPLEX Qty: 10 0RF Rx Instructions: 150-200 3units, 201-250 6units, 251-300 9units, 301-350 12 units, 351-400 15 units, greater than 401-800 20 units and notify magnesium hydroxide [Milk of Magnesia] 400 mg/5 mL Suspension 400 mg PO HS PRN (Reason: Constipation) Rx Instructions: if no BM in 3 days magnesium citrate [Citroma] Solution 150 ml PO DAILY PRN (Reason: Constipation) Rx Instructions: if no results from enema Fleet Enema 19-7 gram/118 mL Enema 118 ml RECTAL DAILY PRN (Reason: Constipation) Rx Instructions: if no results 1 day after suppository omeprazole 20 mg Capsule,Delayed Release(Dr/Ec) 20 mg PO DAILY ferrous sulfate 325 mg (65 mg iron) Tablet,Delayed Release (Dr/Ec) 325 mg PO BID Qty: 90 0RF Jardiance 10 mg tablet 5 mg PO DAILY Qty: 90 0RF Calcium 600 + D(3) 600 mg-5 mcg (200 unit) capsule 1 cap PO DAILY Qty: 30 0RF Follow-up/Referrals: UNKNOWN,DOCTOR [Primary Care Provider] - Time of Disposition: 21:14
[2024-07-06 18:43] LABS: Alanine Aminotransferase 16 U/L (6-35); Albumin Level 3.9 g/dL (3.5-5.1); Alkaline Phosphatase 54 U/L (38-126); Anion Gap 14 mmol/L (4-12); Aspartate Amino Transferase 26 U/L (14-36); Bilirubin,Total 1.1 mg/dL (0.2-1.3); Blood Urea Nitrogen 80 mg/dL (7-17); CRP 8.6 mg/dL (<1.0); Calcium 9.1 mg/dL (8.4-10.2); Carbon Dioxide 19 mmol/L (22-30); Chloride 103 mmol/L (98-107); Estimated Glomerular Filt Rate 24; Glucose 168 mg/dL (65-110); Potassium 5.1 mmol/L (3.4-5.0); Sodium 136 mmol/L (137-145)
[2024-07-06 18:50] LABS: INR 1.4; Prothrombin Time 17.8 Seconds (11.1-14.7)
[2024-07-06 18:51] LABS: Partial Thromboplastin Time 32.8 Seconds (22.3-36.8)
[2024-07-06 18:57] LABS: Band Neutrophils Percent 9 % (0-6); Lymphocytes Absolute Manual 1.32 K/mm3 (1.1-4.5); Monocytes Absolute Manual 0.18 K/mm3 (0.1-0.90); Monocytes Percent Manual 1 % (3-9); Neutrophils Absolute Manual 17.38 K/mm3 (1.7-7.2); Neutrophils Percent Manual 83 % (46-73); Platelet Estimate Adequate (Adequate); Total Cells Counted 100
[2024-07-06 18:58] LABS: Anisocytosis 1+; Hypochromasia 1+; Schistocytes None Seen
--- NOTE | 2024-07-06 19:15 | PC.NURSE ---
blood cultures were drawn before RN got here. Antibiotics started.
[2024-07-06] MEDS: MEROPENEM 1 GM/NS 100 ML 1 GM/100 ML BAG IVPB (19:41)
[2024-07-06] MEDS: ACETAMINOPHEN 650 MG SUPPOSITORY RECTAL (19:47)
--- NOTE | 2024-07-06 20:00 | PC.NURSE ---
VORB to increase Levophed to 10 mcg/min
--- NOTE | 2024-07-06 20:30 | PC.NURSE ---
VORB increase Levophed to 20 mcg/min per EDP
--- NOTE | 2024-07-06 20:30 | PC.NURSE ---
PT at scan. Will start fluids when she returns.
[2024-07-06 20:35] LABS: Add Urine Microscopic? YES; Appearance Urine Turbid (Clear); Bacteria Urine 2+ /hpf; Bilirubin Urine Negative (Negative); Blood Urine 2+ (Negative); Budding Yeast Urine Present /hpf; Color Urine Yellow (Yellow); Glucose Urine UA 2+ mg/dL (Negative); Ketones Urine Negative (Negative); Leukocyte Esterase Ur 3+ LEU/UL (Negative); Need Manual Microscopic Reviewed; Nitrate Urine Negative (Negative); Protein Urine 3+ mg/dL (Negative); RBC Urine 51-100 /hpf (0-2); Specific Grav Ur 1.014 (1.001-1.035); Squamous Epithelial Cell Urine Moderate /hpf (Few); Urobilinogen Urine 0.2 mg/dL (<2.0); WBC Urine >100 /hpf (0-3)
[2024-07-06] MEDS: SODIUM CHLORIDE 0.9% IV 1,000 ML 100 ML IV CONT (21:01)
--- NOTE | 2024-07-06 22:22 | PM.IMHP ---
H&P: HPI History of Present Illness Date/Time: 07/06/24 22:22 Chief Complaint: Fever, lethargy Narrative: 69-year-old female with a past medical history recurrent C diff colitis (04/2024), chronic Kaplan catheter with recurrent UTI, Klebsiella bacteremia (04/2024), dementia, essential hypertension, peripheral vascular disease with bilateral above the knee amputation, combined systolic and diastolic heart failure, insulin-dependent diabetes mellitus, she is hypothyroidism, GERD, and chronic kidney disease stage III among other comorbidities who presented to the ER from [facility] due to fever and lethargy. At care home patient was found have a temperature of 100? form 0.1 and her EMS reported systolic blood pressures in the 70s. In the ER patient's T-max was 100.5? she was found to be profoundly hypotensive with her loss blood pressure of 57/34 on arrival and she had significant leukocytosis move white count of 18.9 and bandemia. Her urine was consistent with probable UTI and electrolyte panel demonstrated acute kidney injury on chronic kidney disease with mild hyperkalemia. The patient received approximately 40 mL/kilos fluid bolus as she appeared clinically dry. Despite fluid resuscitation the patient remained hypotensive and a central line was placed by ER provider. Patient was started on Levophed and empiric antibiotic therapy with meropenem given prior history of ESBL UTI January 2024. CT of the chest abdomen pelvis without contrast demonstrated cardiomegaly with pericardial effusion chronic right anterior chest wall seroma she verses breast implant, thickened wall of the rectum which may indicate proctitis with persistent large fecal load in the colon, air within the left tell Kitty active system with hydronephrotic changes consistent with patient's clinical picture of for UTI with sepsis, and chronic seroma in the anterior abdominal wall with calcifications at the side of the patient's prior ventral hernia repair. The patient is an unreliable historian and subsequently entirety of HPI and history was obtained from review of past medical records, physician report and review of external records. Review of Systems Review of Systems: Do the patient's history of dementia and acute metabolic encephalopathy she is unable to provide meaningful history and review of systems is unreliable. [facility] Past Medical History Medical History (Updated 07/06/24 @ 23:49 by Marley Jauregui, ) Chronic indwelling Kaplan catheter CKD (chronic kidney disease) stage 3, GFR 30-59 ml/min With baseline creatinine between 1.3 and 1.6 Iron deficiency anemia History of ESBL E. coli infection Recurrent Clostridioides difficile infection Anemia Pneumonia Stercoral colitis Urinary tract infection due to extended-spectrum beta lactamase (ESBL) producing Escherichia coli Type 2 diabetes mellitus Hypertension C. difficile diarrhea (01/2024) Gastroesophageal reflux disease History of breast cancer Thyroid cancer Hyperlipidemia Peripheral vascular disease Non-STEMI (non-ST elevated myocardial infarction) Combined systolic and diastolic congestive heart failure Echo 01/2024 demonstrated stable systolic dysfunction with EF of 25-30% but worsening diastolic function with grade 3-4 dysfunction with elevated left atrial pressures, mild right ventricular enlargement with hypokinesis of the right ventricle, mild aortic stenosis with mild aortic regurgitation, mild pulmonary hypertension with RVSP of 41 with [id number] pericardial effusion among other abnormalities Neuropathy Psychiatric disorder Dementia Surgical History Surgical History (Updated 07/06/24 @ 22:52 by Marley Jauregui DO) History of thyroidectomy History of ventral hernia repair With chronic calcified seroma History of above-knee amputation of both lower extremities History of right breast implant Patient reports that it was radiation implant History of lumpectomy of left breast Family History Family History Mother Family history of type 2 diabetes mellitus, Onset Age: 55 Father Acute myocardial infarction, Onset Age: 58 Social History Social History Social History: Surrogate medical decision maker: Ailyn Turner, daughter. Code status: Do not resuscitate with selective treatment (paperwork accompanies the patient). Smoking status: Unknown if ever smoked Second hand tobacco smoke exposure: No Alcohol intake: unknown Substance use: unknown Substance use type: does not use Do You Feel Safe in your Home?: Yes Lack of Transportation: No Lack of Food: Never True Current Housing: I Have Housing Concerned About Future Housing: No Difficulty Paying Gas/Electric Bills: No Difficulty Paying for Meds: No Currently Unemployed: No Education: High School Diploma/GED Difficulty w/ Childcare or Family Care: No Spiritual care concerns: No Meds Home Medications and Allergies Home Medications ?Medication ?Instructions ?Recorded ?Confirmed ?Type atorvastatin 40 mg tablet 40 mg PO HS 12/05/21 07/06/24 History levothyroxine 100 mcg tablet 100 mcg PO DAILY 12/05/21 07/06/24 History gabapentin 300 mg capsule 300 mg PO TID 05/16/22 07/06/24 History potassium chloride 10 mEq 10 meq PO DAILY 05/16/22 07/06/24 History capsule,extended release furosemide 40 mg tablet (Lasix) 60 mg PO BID 01/10/24 07/06/24 History carvedilol 6.25 mg tablet (Coreg) 6.25 mg PO BID 01/30/24 07/06/24 History sacubitril 24 mg-valsartan 26 mg 1 tablet PO Q12H 01/30/24 07/06/24 History tablet (Entresto) tramadol 50 mg tablet 50 mg PO Q8H PRN pain 01/30/24 07/06/24 History magnesium citrate (Citroma oral 150 ml PO DAILY PRN Constipation 02/15/24 07/06/24 History solution) magnesium hydroxide 400 mg/5 mL 400 mg PO HS PRN Constipation 02/15/24 07/06/24 History oral suspension (Milk of Magnesia) sodium phosphates 19 gram-7 118 ml RECTAL DAILY PRN 02/15/24 07/06/24 History gram/118 mL enema (Fleet Enema) Constipation ferrous sulfate 325 mg (65 mg 325 mg PO BID #90 tabs 02/29/24 07/06/24 Rx iron) tablet,delayed release acetaminophen 325 mg capsule 650 mg PO Q4H PRN pain 05/04/24 07/06/24 History calcium 600 mg (as 1 cap PO DAILY 05/04/24 07/06/24 History carbonate)-vitamin D3 5 mcg (200 unit) capsule (Calcium 600 + D(3)) cyanocobalamin (vitamin B-12) 1,000 mcg PO DAILY 05/04/24 07/06/24 History 1,000 mcg capsule multivitamin,tx-minerals 1 cap PO DAILY 05/04/24 07/06/24 History (Multi-Vitamin HP/Minerals capsule) spironolactone 25 mg tablet 25 mg PO DAILY 05/04/24 07/06/24 History pantoprazole 40 mg tablet,delayed 40 mg PO HS 8 weeks #56 tabs 05/07/24 07/06/24 Rx release (Protonix) bisacodyl 10 mg rectal suppository 10 mg RECTAL DAILY PRN constipation 07/06/24 07/06/24 History empagliflozin 10 mg tablet 10 mg PO DAILY 07/06/24 07/06/24 History (Jardiance) insulin aspart U-100 100 unit/mL See Rx Instructions .Route .COMPLEX 07/06/24 07/06/24 History subcutaneous solution (Novolog U-100 Insulin aspart) Allergies Allergy/AdvReac Type Severity Reaction Status Date / Time codeine Allergy Unknown Verified 05/21/24 10:56 Vital Signs Vital Signs - 24 hr 07/06/24 18:01 07/06/24 18:05 07/06/24 18:15 Temperature Pulse Rate 89 83 75 Respiratory Rate 20 17 Blood Pressure 57/34 L 71/28 L 77/29 L Pulse Oximetry 100 Oxygen Delivery Oxygen Flow Rate 07/06/24 18:20 07/06/24 18:29 07/06/24 18:30 Temperature Pulse Rate 82 71 86 Respiratory Rate 21 H 21 H Blood Pressure 52/29 L 52/29 L 80/47 L Pulse Oximetry 100 100 Oxygen Delivery Oxygen Flow Rate 07/06/24 18:34 07/06/24 18:40 07/06/24 18:50 Temperature Pulse Rate 86 81 58 L Respiratory Rate 21 H 19 22 H Blood Pressure 99/43 L 81/71 L 107/48 L Pulse Oximetry 100 100 100 Oxygen Delivery Oxygen Flow Rate 07/06/24 19:00 07/06/24 19:10 07/06/24 19:11 Temperature 99.6 F 100.3 F H 100.3 F H Pulse Rate 76 75 51 L Respiratory Rate 17 17 17 Blood Pressure 103/42 L 98/43 L Pulse Oximetry 100 100 100 Oxygen Delivery Oxygen Flow Rate 07/06/24 19:25 07/06/24 19:36 07/06/24 19:40 Temperature 100.4 F H 100.5 F H Pulse Rate 35 L Respiratory Rate 17 16 Blood Pressure 88/65 L 86/49 L Pulse Oximetry 98 100 100 Oxygen Delivery Nasal Cannula Oxygen Flow Rate 2 07/06/24 19:43 07/06/24 19:45 07/06/24 19:50 Temperature 100.5 F H 100.5 F H Pulse Rate 80 87 Respiratory Rate 17 18 Blood Pressure 86/49 L 100/58 L Pulse Oximetry 100 100 Oxygen Delivery Oxygen Flow Rate 07/06/24 20:00 07/06/24 20:01 07/06/24 20:10 Temperature 100.4 F H 100.4 F H 100.3 F H Pulse Rate 89 92 89 Respiratory Rate 19 17 17 Blood Pressure 97/36 L 94/36 L Pulse Oximetry Oxygen Delivery Oxygen Flow Rate 07/06/24 20:12 07/06/24 20:15 07/06/24 20:24 Temperature 100.3 F H 100.2 F H Pulse Rate 87 85 Respiratory Rate 17 17 Blood Pressure 92/40 L 119/64 Pulse Oximetry Oxygen Delivery Oxygen Flow Rate 07/06/24 20:29 07/06/24 20:30 07/06/24 20:52 Temperature 99.8 F H Pulse Rate 85 94 Respiratory Rate 17 Blood Pressure 119/64 90/39 L Pulse Oximetry 100 Oxygen Delivery Oxygen Flow Rate 07/06/24 20:58 07/06/24 21:00 07/06/24 21:01 Temperature 99.6 F 99.6 F 99.6 F Pulse Rate 92 93 94 Respiratory Rate 16 16 16 Blood Pressure 107/93 H 110/67 Pulse Oximetry 100 100 100 Oxygen Delivery Oxygen Flow Rate 07/06/24 21:05 07/06/24 21:10 07/06/24 21:15 Temperature 99.6 F 99.5 F 99.4 F Pulse Rate 94 93 Respiratory Rate 17 15 Blood Pressure 105/67 Pulse Oximetry 100 100 Oxygen Delivery Oxygen Flow Rate 07/06/24 21:20 07/06/24 21:30 07/06/24 21:31 Temperature 99.4 F 99.3 F 99.3 F Pulse Rate 93 93 94 Respiratory Rate 17 18 16 Blood Pressure 109/57 L 112/65 Pulse Oximetry 100 100 Oxygen Delivery Oxygen Flow Rate 07/06/24 21:40 07/06/24 21:51 07/06/24 22:00 Temperature 99.3 F 99.2 F Pulse Rate 93 93 93 Respiratory Rate 18 16 Blood Pressure 107/53 L Pulse Oximetry 100 100 Oxygen Delivery Oxygen Flow Rate 07/06/24 22:04 Temperature Pulse Rate Respiratory Rate Blood Pressure Pulse Oximetry 100 Oxygen Delivery Nasal Cannula Oxygen Flow Rate 5 Exam Narrative: Raise weight 57.1 kg pre amputation height 157 cm Const: Other: Acute on Chronically ill-appearing, obese, debilitated, appears older than stated age HENMT: Other: Head is normocephalic atraumatic, mucous membranes are dry, edentulous in upper and lower jaw Eyes: Other: Pupils are equal and reactive, positive conjunctival pallor, no scleral icterus Neck: Other: No JVD, large neck circumference, left triple-lumen IJ in place Resp: Other: Decreased breath sounds throughout, no tachypnea Cardio: Other: Regular rate, regular rhythm, 2+ bilateral radial pulses, 2+ bilateral femoral pulses, no JVD GI: Other: Distended, nontender, large protrusion of anterior abdominal wall is firm, nontender, hypoactive bowel sounds : Other: Temperature probe Kaplan in place, urine appears milky but pale yellow Skin: Other: Patient has some small stage II decubitus ulcers to the buttock and upper medial thighs, multiple areas of scarring from prior healed decubitus ulcers the largest of which is on the right posterior thigh at the base of the buttock, previously healed ulcer at the posterior right labia, dried flaking skin from the bilateral lower extremity stumps Neuro: Other: Patient is little lethargic and difficult to arouse but once awake is oriented to person, place and year, she thought the month was September, she is slow to respond in only intermittently follows commands Extrem: Other: Bilateral [id number] amputations no wounds to the stumps, 3 to 4/5 director channel strength bilateral, no clubbing, no cyanosis Psych: Other: Pleasantly confused, cooperative, poor judgment and insight H&P: Results Labs Labs: Laboratory Tests 07/06/24 18:23 07/06/24 18:23 07/06/24 07/06/24 07/06/24 18:23 18:57 23:15 WBC 18.9 H RBC 3.21 L Hgb 9.8 L Hct 30.8 L MCV 96.0 MCH 30.5 MCHC 31.8 L RDW 15.0 H Plt Count 268 MPV 9.8 Immature Gran % (Auto) Not Reportable Neut % (Auto) Not Reportable Lymph % (Auto) Not Reportable [place] % (Auto) Not Reportable Eos % (Auto) Not Reportable Baso % (Auto) Not Reportable Lymph # (Auto) Not Reportable [place] # (Auto) Not Reportable Eos # (Auto) Not Reportable Baso # (Auto) Not Reportable Abs Immat Gran (auto) Not Reportable Absolute Neuts (auto) Not Reportable Absolute Nucleated RBC Not Reportable Total Counted 100 Neutrophils % (Manual) 83 H Band Neutrophils % 9 H Lymphocytes % (Manual) 7.0 L Monocytes % (Manual) 1 L Nucleated RBC % Not Reportable Abs Neuts (Manual) 17.38 H Abs Lymphs (Manual) 1.32 Abs Monocytes (Manual) 0.18 Platelet Estimate Adequate Hypochromasia 1+ Anisocytosis 1+ Schistocytes None seen PT 17.8 H INR 1.4 APTT 32.8 Puncture Site Right femoral ABG pH 7.194 L* ABG pCO2 32.7 L ABG pO2 244.9 H ABG PO2/FiO2 Ratio 6.80 ABG HCO3 12.3 L ABG O2 Saturation 99.4 ABG O2 Content 15.0 L ABG Base Excess -14.6 A-a Gradient < 0.0 Oxyhemoglobin 99.1 Total Hemoglobin 10.3 L O2 Delivery Device Nasal cannula O2 Liters/Min 4.0 FiO2 36 Sodium 136 L Potassium 5.1 H Chloride 103 Carbon Dioxide 19 L Anion Gap 14 H BUN 80 H D Creatinine 2.03 H Estim Creat Clear Calc Not Reportable Estimated GFR 24 L Glucose 168 H Lactic Acid 0.9 Calcium 9.1 Total Bilirubin 1.1 AST 26 ALT 16 Alkaline Phosphatase 54 C-Reactive Protein 8.6 H Total Protein 9.0 H Albumin 3.9 Urine Color Yellow Urine Appearance Turbid H Urine pH 5.0 Ur Specific [place] 1.014 Urine Protein 3+ H Urine Glucose (UA) 2+ H Urine Ketones Negative Ur Blood (Man) 2+ H Urine Nitrate Negative Urine Bilirubin Negative Urine Urobilinogen 0.2 Add Ur Microanalysis Reviewed Leukocyte Esterase Rfl 3+ H Urine RBC 51-100 H Urine WBC >100 H Ur Squamous Epith Cells Moderate Urine Bacteria 2+ H Urine Casts 3-5 Urine Yeast (Budding) Present H Impressions Chest X-Ray 07/06/24 18:54 IMPRESSION: Bilateral perihilar pneumonia. The left central line tip is noted at the junction of the superior vena cava and left brachiocephalic vein. Head CT 07/06/24 19:40 IMPRESSION: No acute intracranial findings. Chest/Abdomen/Pelvis CT 07/06/24 21:16 IMPRESSION: CHEST: 1. Cardiomegaly with pericardial effusion. 2. No evidence of pneumonia or pneumothorax. 3. Right anterior chest wall seroma versus breast implant. ABDOMEN/PELVIS: 1. No evidence of appendicitis, diverticulitis or intestinal obstruction. 2. Thickened wall of the rectum which may indicate proctitis. Clinical correlation advised. 3. Air seen in the left pelvicalyceal system with hydronephrotic changes. Infection cannot be excluded. Further evaluation advised. 4. Seen in the area bladder with Kaplan's catheter. 5. Seroma in the anterior abdominal wall with wall calcification. EKG: Test Date: 2024-07-06 18:59:50 Measurements Intervals [place] Rate: 89 P: 58 MA: 239 QRS: -67 QRSD: 95 T: 118 QT: 348 QTc: 425 Interpretive Statements SINUS RHYTHM WITH ATRIAL PREMATURE COMPLEXES WITH FIRST DEGREE AV BLOCK LEFT AXIS DEVIATION LOW QRS VOLTAGE IN LIMB LEADS EXTENSIVE ANTERIOR INFARCT, AGE INDETERMINATE BORDERLINE ST-T WAVE ABNORMALITY- HIGH LATERAL LEADS BASELINE WANDER- V2 ABNORMAL ECG Compared to ECG 02/15/2024 11:03:41 HEART RATE HAS INCREASED All imaging and EKGs personally reviewed and interpreted. And unless stated otherwise agree with radiologic and cardiology interpretation. Assessment and Plan Assessment and plan (1) Septic shock: Code(s): A41.9 - Sepsis, unspecified organism; R65.21 - Severe sepsis with septic shock Status: Acute (2) Catheter-associated urinary tract infection: Qualifiers: Indwelling urinary catheter type: indwelling urethral catheter Encounter type: initial encounter Qualified Code(s): T83.511A - Infection and inflammatory reaction due to indwelling urethral catheter, initial encounter; N39.0 - Urinary tract infection, site not specified Code(s): T83.511A - Infection and inflammatory reaction due to indwelling urethral catheter, initial encounter; N39.0 - Urinary tract infection, site not specified Status: Acute (3) History of ESBL E. coli infection: Code(s): Z86.19 - Personal history of other infectious and parasitic diseases Status: Acute Assessment and Plan: 01/2024 (4) Acute kidney injury superimposed on stage 3a chronic kidney disease: Code(s): N17.9 - Acute kidney failure, unspecified; N18.31 - Chronic kidney disease, stage 3a Status: Acute (5) Acute hyperkalemia: Code(s): E87.5 - Hyperkalemia Status: Acute (6) Recurrent Clostridioides difficile infection: Code(s): A49.8 - Other bacterial infections of unspecified site Status: Acute (7) Acute alteration in mental status: Code(s): R41.82 - Altered mental status, unspecified Status: Acute (8) Type 2 diabetes mellitus with hyperglycemia: Qualifiers: Diabetes mellitus [facility] insulin use: with [facility] use Qualified Code(s): E11.65 - Type 2 diabetes mellitus with hyperglycemia; Z79.4 - group home (current) use of insulin Code(s): E11.65 - Type 2 diabetes mellitus with hyperglycemia Status: Acute (9) Gastroesophageal reflux disease: Qualifiers: Esophagitis presence: esophagitis presence not specified Qualified Code(s): K21.9 - Gastro-esophageal reflux disease without esophagitis Code(s): K21.9 - Gastro-esophageal reflux disease without esophagitis Status: Acute (10) Stercoral colitis: Code(s): K52.89 - Other specified noninfective gastroenteritis and colitis Status: Acute Plan Patient presented to the ER with septic shock likely due to Kaplan catheter associated UTI with chronic indwelling Kaplan catheter in patient with history of prior infections with ESBL and unfortunately prior episodes of recurrent C diff. blood cultures have been obtained and are pending. Urine cultures are pending. Patient's Kaplan catheter was exchanged in the ER and is draining well. Patient has had about 150 mL of urine output since arrival to the ICU. The patient meets sepsis shock criteria with fever, leukocytosis and persistent hypotension despite 30 mL/kilos fluid resuscitation. Patient is now on Levophed to titrate per protocol to maintain systolic blood pressures greater than 90 maps 65. Patient's Levophed is currently at 20. Will continue intervascular volume replacement but he given the patient's severe metabolic acidosis despite compensatory respiratory alkalosis will give the patient an amp of sodium bicarb in switch IV fluids to D5 W with 150 mEq of sodium bicarb to run at 100 mL an hour. Will monitor fluid status closely given the patient's history of combined systolic and diastolic heart failure. Currently the patient still appears intravascularly volume depleted with likely profound dehydration the patient also has CT evidence of proctitis possibly sterile cold colitis given her large stool burden. Although not mention by [facility]iology [place] and reviewed patient does have some moderately dilated areas of bowel morning the patient may have a mild ileus given her decreased bowel sounds. The patient has had multiple green liquid stools despite CT findings of large fecal load in somewhat solid-appearing stool on imaging. There is likely some component of overflow incontinence. Given patient's recent C diff infection and the need for broad-spectrum antibiotic coverage with meropenem given ESBL history I am also going to place the patient on oral vancomycin as a prophylactic measure for C diff. given recent positive result I do not want to repeat testing as a could result in false positive. Given the large stool load in the rectum a order a enema since the patient's blood pressures have now stabilized. Patient has acute kidney injury likely due to septic shock and dehydration. Will monitor urine output closely and continue IV fluids as discussed above. The patient does have some mild hyperglycemia with history of diabetes. Will place patient on low-dose sliding scale insulin with Accu-Cheks a.c. HS. Patient is confused in seems somewhat encephalopathic likely due to metabolic encephalopathy. Patient will you placed on Protonix for GI prophylaxis. Patient does have some mild hyperkalemia due to combination of sepsis, nephro toxic medications and potassium supplementation. Will hold all antihypertensives including lisinopril and potassium supplementation. Will repeat CBC with diff CMP magnesium and phosphorus in a.m.. 60 minutes spent in critical care activities. Due to a high probability of clinically significant, life threatening deterioration, the patient required my highest level of preparedness to intervene emergently and I personally spent this critical care time directly and personally managing the patient. This critical care time included obtaining a history; examining the patient; pulse oximetry; ordering and review of studies; arranging urgent treatment with development of a management plan; evaluation of patient's response to treatment; frequent reassessment; and discussions with other providers. It was exclusive of separately billable procedures and treating other patients and teaching time. Please see Assessment and Plan section and the rest of the note for further information on patient assessment and treatment. Quality VTE Prophylaxis VTE prophylaxis: pharmacologic ordered (Lovenox 30 mg subQ daily.) Hospitalist MIPS Advance Care Plan I have confirmed that the patient's Advanced Care Plan is present, code status is documented, or surrogate decision maker is listed in patient medical record.: Yes Medication Reconciliation I have utilized all available resources to obtain, update and review the patients current medications (includes all prescriptions, OTC, herbals, cannabis, and nutritional supplements).: Yes
[2024-07-06 23:20] LABS: Alveolar/Arterial O2 Gradient < 0.0 mmHg; Base Excess ABG -14.6 mEq/l (+/-2.0); Fractional Inspired Oxygen 36 %; HCO3 ABG 12.3 mEq/l (22.0-26.0); Oxygen Saturation ABG 99.4 % (95.0-100.0); Oxyhemoglobin 99.1 % THb (90.0-100.0); PCO2 ABG 32.7 mmHg (35.0-45.0); PO2 ABG 244.9 mmHg (80.0-100.0); Total Hemoglobin 10.3 g/dL (12.0-18.0)
[2024-07-06 23:21] LABS: Device NASAL CANNULA; Site Drawn RIGHT FEMORAL; pH ABG 7.194 (7.350-7.450)
--- NOTE | 2024-07-06 23:31 | ADMGEN ---
This patient, Iris Pascual, was admitted to Intensive Care Unit-6 at 2230. Patient/family oriented to hospital policies and general routines including ID bracelet, bed and alarms, visiting hours, pain management, procedures, bathroom and other care routines, personal items, smoking policy, room service/diet, and visiting hours. Information on how to activate the Rapid Response Team has been discussed. Patient/Family are encouraged to report perceived risks to care and to ask questions if they do not understand what they are told or what they should do.
[2024-07-07] VITALS (79 sets, daily range): BP systolic 83–139; BP diastolic 35–80; PULSE 67–92; RESP 12–22; TEMP 36.1–38.1; O2SAT 95–100
[2024-07-07] MEDS: SODIUM BICARBONATE 8.4% 50 MEQ/50 ML SYRINGE IV PUSH (00:29)
[2024-07-07] MEDS: SODIUM BICARBONATE 8.4% 150 MEQ in DEXTROSE 5% 1,000 ML 950 ML 100 MEQ IV CONT (00:29)
[2024-07-07] MEDS: CENTRAL LINE FLUSH 10 ML IV PUSH ×4 (00:29→20:27)
[2024-07-07] MEDS: VANCOMYCIN HCL 125 MG ORAL CAPSULE PO ×4 (00:41→16:58)
[2024-07-07 00:49] LABS: Glucose Point of Care 255 mg/dl (65-105)
[2024-07-07] MEDS: DOCUSATE SODIUM 400 MG/400 ML ENEMA RECTAL (00:58)
--- NOTE | 2024-07-07 01:23 | PC.NURSE ---
07/07/242223 report taken from Ludmila PALMER in ER.
[2024-07-07 02:28] LABS: MRSA (PCR) DETECTED (NOT DETECTE)
[2024-07-07] MEDS: NOREPINEPHRINE 8 MG/D5W 250 ML 8 MG/250 ML BAG 16.88 MG IV CONT (02:55)
[2024-07-07] MEDS: LEVOTHYROXINE SODIUM 100 MCG TABLET PO (06:18)
[2024-07-07 06:21] LABS: Basophils Absolute Auto 0.1 K/mm3 (0.0-0.1); Basophils Percent Auto 0.3 % (0.2-1.2); Eosinophils Percent Auto 0.1 % (0-4.4); Hematocrit 28.2 % (37.0-47.0); Hemoglobin 8.7 g/dL (12.0-15.0); Immature Granulocyte Absolute 0.05 K/mm3 (0.00-0.031); Immature Granulocyte Percent A 0.3 % (0-0.5); Lymphocytes Absolute Auto 1.18 K/mm3 (0.9-3.2); Lymphocytes Percent Auto 7.3 % (18.3-44.2); Mean Corpuscular HGB Conc 30.9 g/dl (32-36); Mean Corpuscular Hemoglobin 30.1 pg (26-34); Mean Corpuscular Volume 97.6 fl (80-100); Mean Platelet Volume 9.6 fl (7.4-10.4); Monocytes Absolute Auto 0.8 K/mm3 (0.1-0.6); Monocytes Percent Auto 4.8 % (2.6-8.5); Neutrophils Percent Auto 87.2 % (45.5-73.1); Platelet Count Result 249 k/mm3 (150-375); Red Blood Count 2.89 M/mm3 (4.2-5.4); White Blood Count 16.1 K/mm3 (4.5-10.0)
[2024-07-07 06:35] LABS: Alanine Aminotransferase 17 U/L (6-35); Albumin Level 3.4 g/dL (3.5-5.1); Alkaline Phosphatase 50 U/L (38-126); Anion Gap 13 mmol/L (4-12); Aspartate Amino Transferase 24 U/L (14-36); Bilirubin,Total 0.8 mg/dL (0.2-1.3); Blood Urea Nitrogen 73 mg/dL (7-17); Calcium 7.9 mg/dL (8.4-10.2); Carbon Dioxide 20 mmol/L (22-30); Chloride 106 mmol/L (98-107); Estimated CRCL calculation 20 ml/min; Estimated Glomerular Filt Rate 29; Glucose 320 mg/dL (65-110); Magnesium 1.5 mg/dL (1.6-2.3); Phosphorus 4.4 mg/dL (2.5-4.5); Potassium 3.6 mmol/L (3.4-5.0); Sodium 139 mmol/L (137-145)
[2024-07-07 07:39] LABS: Glucose Point of Care 302 mg/dl (65-105)
[2024-07-07] MEDS: INSULIN ASPART (*BKC) 100 UNITS/ML SUB-Q ×3 (07:59→20:26)
[2024-07-07] MEDS: MEROPENEM 500 MG/NS 100 ML 500 MG/100 ML BAG 200 MG IVPB ×2 (07:59→20:25)
--- NOTE | 2024-07-07 08:21 | WPDCNINT ---
Assessment and Plan Assessment and plan (1) Septic shock: Code(s): A41.9 - Sepsis, unspecified organism; R65.21 - Severe sepsis with septic shock Status: Acute Assessment and Plan: Septic shock secondary to UTI. Patient has a chronic indwelling urinary catheter. Patient also has a history of ESBL. UA is also showing yeast and patient does have history yeast in her urine Continue IV fluids with decreased rate CT scan does not show any stone or obstruction. Kaplan has been changed Continue Levophed to maintain mean arterial pressure IV meropenem and fluconazole Blood and urine culture (2) Combined systolic and diastolic congestive heart failure: Qualifiers: Heart failure chronicity: acute on chronic Qualified Code(s): I50.43 - Acute on chronic combined systolic (congestive) and diastolic (congestive) heart failure Code(s): I50.40 - Unspecified combined systolic (congestive) and diastolic (congestive) heart failure Status: Acute Assessment and Plan: Full CT of meds at this time due to concern septic shock. Obtain echocardiogram to assess cardiac function and pericardial effusion (3) Type 2 diabetes mellitus: Code(s): E11.9 - Type 2 diabetes mellitus without complications Status: Acute Assessment and Plan: Sliding scale insulin Change IV fluids from dextrose to LR (4) Diarrhea: Code(s): R19.7 - Diarrhea, unspecified Status: Acute Assessment and Plan: Patient has chronic constipation and also has diarrhea. Patient was recently diagnosed with C diff associated diarrhea Continue p.o. vancomycin as patient has been started on IV antibiotic Laxatives (5) ABDIRASHID (acute kidney injury): Code(s): N17.9 - Acute kidney failure, unspecified Status: Acute Assessment and Plan: Patient has chronic kidney disease with creatinine 1.2-1.4 Presented with creatinine of 2.1 likely secondary to septic shock CT scan does not show any stone or obstruction Monitor urine output electrolytes and creatinine IV fluid Maintain mean arterial pressure with vasopressors Patient is on IV fluids with bicarb I will change that to LR (6) Catheter-associated urinary tract infection: Qualifiers: Indwelling urinary catheter type: indwelling urethral catheter Encounter type: initial encounter Qualified Code(s): T83.511A - Infection and inflammatory reaction due to indwelling urethral catheter, initial encounter; N39.0 - Urinary tract infection, site not specified Code(s): T83.511A - Infection and inflammatory reaction due to indwelling urethral catheter, initial encounter; N39.0 - Urinary tract infection, site not specified Status: Acute Assessment and Plan: See above (7) C. difficile diarrhea: Onset Date: 01/2024 Code(s): A04.72 - Enterocolitis due to Clostridium difficile, not specified as recurrent Status: Acute Assessment and Plan: See above (8) Acute metabolic encephalopathy: Code(s): G93.41 - Metabolic encephalopathy Status: Acute Assessment and Plan: Exam as above Acute metabolic encephalopathy likely secondary to septic shocks and medications Check TSH and ammonia level Head CT reviewed Hold gabapentin and other sedative (9) Abnormal breast finding: Code(s): N64.59 - Other signs and symptoms in breast Status: Acute Assessment and Plan: Patient has a right anterior chest wall seroma versus breast implant on the CT scan. This is a known finding and was evaluated in January of 2024 by general surgery and was found to be not causing issues hence no further treatment was recommended. (10) Metabolic acidosis: Code(s): E87.20 - Acidosis, unspecified Status: Acute Assessment and Plan: Improved with IV fluids with bicarb. Will change to LR. Monitor (11) Electrolyte abnormality: Code(s): E87.8 - Other disorders of electrolyte and fluid balance, not elsewhere classified Status: Acute Assessment and Plan: Replace low potassium and magnesium Plan DVT prophylaxis -Lovenox Stress ulcer prophylaxis -PPI Nutrition -will resume diet once patient's mental status improved Code Status -patient is DNR DNI as per her advance directive from [facility] Total Critical Care Time - 40 minutes Due to a high probability of clinically significant, life threatening deterioration, the patient required my highest level of preparedness to intervene emergently and I personally spent this critical care time directly and personally managing the patient. This critical care time included obtaining a history; examining the patient; pulse oximetry; ordering and review of studies; arranging urgent treatment with development of a management plan; evaluation of patient's response to treatment; frequent reassessment; and discussions with other providers. It was exclusive of separately billable procedures and treating other patients and teaching time. Please see Assessment and Plan section and the rest of the note for further information on patient assessment and treatment [employer] Consult Note Consult date: 07/07/24 Reason for consult: Shock HPI: Iris Pascual is a 69 year old female Review of Systems Review of Systems: ROS unobtainable: Yes unobtainable due to medical condition and unobtainable due to mental status [facility] Past Medical History Medical History Chronic indwelling Kaplan catheter CKD (chronic kidney disease) stage 3, GFR 30-59 ml/min With baseline creatinine between 1.3 and 1.6 Iron deficiency anemia History of ESBL E. coli infection Recurrent Clostridioides difficile infection Anemia Pneumonia Stercoral colitis Urinary tract infection due to extended-spectrum beta lactamase (ESBL) producing Escherichia coli Type 2 diabetes mellitus Hypertension C. difficile diarrhea (01/2024) Gastroesophageal reflux disease History of breast cancer Thyroid cancer Hyperlipidemia Peripheral vascular disease Non-STEMI (non-ST elevated myocardial infarction) Combined systolic and diastolic congestive heart failure Echo 01/2024 demonstrated stable systolic dysfunction with EF of 25-30% but worsening diastolic function with grade 3-4 dysfunction with elevated left atrial pressures, mild right ventricular enlargement with hypokinesis of the right ventricle, mild aortic stenosis with mild aortic regurgitation, mild pulmonary hypertension with RVSP of 41 with [id number] pericardial effusion among other abnormalities Neuropathy Psychiatric disorder Dementia Surgical History Surgical History History of thyroidectomy History of ventral hernia repair With chronic calcified seroma History of above-knee amputation of both lower extremities History of right breast implant Patient reports that it was radiation implant History of lumpectomy of left breast Family History Family History Mother Family history of type 2 diabetes mellitus, Onset Age: 55 Father Acute myocardial infarction, Onset Age: 58 Social History Social History Social History: Surrogate medical decision maker: Ailyn Turner, daughter. Code status: Do not resuscitate with selective treatment (paperwork accompanies the patient). Smoking status: Unknown if ever smoked Second hand tobacco smoke exposure: No Alcohol intake: unknown Substance use: unknown Substance use type: does not use Do You Feel Safe in your Home?: Yes Lack of Transportation: No Lack of Food: Never True Current Housing: I Have Housing Concerned About Future Housing: No Difficulty Paying Gas/Electric Bills: No Difficulty Paying for Meds: No Currently Unemployed: No Education: High School Diploma/GED Difficulty w/ Childcare or Family Care: No Spiritual care concerns: No Meds Home Medications and Allergies Home Medications ?Medication ?Instructions ?Recorded ?Confirmed ?Type atorvastatin 40 mg tablet 40 mg PO HS 12/05/21 07/06/24 History levothyroxine 100 mcg tablet 100 mcg PO DAILY 12/05/21 07/06/24 History gabapentin 300 mg capsule 300 mg PO TID 05/16/22 07/06/24 History potassium chloride 10 mEq 10 meq PO DAILY 05/16/22 07/06/24 History capsule,extended release furosemide 40 mg tablet (Lasix) 60 mg PO BID 01/10/24 07/06/24 History carvedilol 6.25 mg tablet (Coreg) 6.25 mg PO BID 01/30/24 07/06/24 History sacubitril 24 mg-valsartan 26 mg 1 tablet PO Q12H 01/30/24 07/06/24 History tablet (Entresto) tramadol 50 mg tablet 50 mg PO Q8H PRN pain 01/30/24 07/06/24 History magnesium citrate (Citroma oral 150 ml PO DAILY PRN Constipation 02/15/24 07/06/24 History solution) magnesium hydroxide 400 mg/5 mL 400 mg PO HS PRN Constipation 02/15/24 07/06/24 History oral suspension (Milk of Magnesia) sodium phosphates 19 gram-7 118 ml RECTAL DAILY PRN 02/15/24 07/06/24 History gram/118 mL enema (Fleet Enema) Constipation ferrous sulfate 325 mg (65 mg 325 mg PO BID #90 tabs 02/29/24 07/06/24 Rx iron) tablet,delayed release acetaminophen 325 mg capsule 650 mg PO Q4H PRN pain 05/04/24 07/06/24 History calcium 600 mg (as 1 cap PO DAILY 05/04/24 07/06/24 History carbonate)-vitamin D3 5 mcg (200 unit) capsule (Calcium 600 + D(3)) cyanocobalamin (vitamin B-12) 1,000 mcg PO DAILY 05/04/24 07/06/24 History 1,000 mcg capsule multivitamin,tx-minerals 1 cap PO DAILY 05/04/24 07/06/24 History (Multi-Vitamin HP/Minerals capsule) spironolactone 25 mg tablet 25 mg PO DAILY 05/04/24 07/06/24 History pantoprazole 40 mg tablet,delayed 40 mg PO HS 8 weeks #56 tabs 05/07/24 07/06/24 Rx release (Protonix) bisacodyl 10 mg rectal suppository 10 mg RECTAL DAILY PRN constipation 07/06/24 07/06/24 History empagliflozin 10 mg tablet 10 mg PO DAILY 07/06/24 07/06/24 History (Jardiance) insulin aspart U-100 100 unit/mL See Rx Instructions .Route .COMPLEX 07/06/24 07/06/24 History subcutaneous solution (Novolog U-100 Insulin aspart) Allergies Allergy/AdvReac Type Severity Reaction Status Date / Time codeine Allergy Unknown Verified 05/21/24 10:56 Vital Signs Vital Signs - 24 hr 07/06/24 18:01 07/06/24 18:05 07/06/24 18:15 Temperature Pulse Rate 89 83 75 Respiratory Rate 20 17 Blood Pressure 57/34 L 71/28 L 77/29 L Pulse Oximetry 100 Oxygen Delivery Oxygen Flow Rate 07/06/24 18:20 07/06/24 18:29 07/06/24 18:30 Temperature Pulse Rate 82 71 86 Respiratory Rate 21 H 21 H Blood Pressure 52/29 L 52/29 L 80/47 L Pulse Oximetry 100 100 Oxygen Delivery Oxygen Flow Rate 07/06/24 18:34 07/06/24 18:40 07/06/24 18:50 Temperature Pulse Rate 86 81 58 L Respiratory Rate 21 H 19 22 H Blood Pressure 99/43 L 81/71 L 107/48 L Pulse Oximetry 100 100 100 Oxygen Delivery Oxygen Flow Rate 07/06/24 19:00 07/06/24 19:10 07/06/24 19:11 Temperature 37.6 C 37.9 C H 37.9 C H Pulse Rate 76 75 51 L Respiratory Rate 17 17 17 Blood Pressure 103/42 L 98/43 L Pulse Oximetry 100 100 100 Oxygen Delivery Oxygen Flow Rate 07/06/24 19:25 07/06/24 19:36 07/06/24 19:40 Temperature 38.0 C H 38.1 C H Pulse Rate 35 L Respiratory Rate 17 16 Blood Pressure 88/65 L 86/49 L Pulse Oximetry 98 100 100 Oxygen Delivery Nasal Cannula Oxygen Flow Rate 2 07/06/24 19:43 07/06/24 19:45 07/06/24 19:50 Temperature 38.1 C H 38.1 C H Pulse Rate 80 87 Respiratory Rate 17 18 Blood Pressure 86/49 L 100/58 L Pulse Oximetry 100 100 Oxygen Delivery Oxygen Flow Rate 07/06/24 20:00 07/06/24 20:01 07/06/24 20:10 Temperature 38.0 C H 38.0 C H 37.9 C H Pulse Rate 89 92 89 Respiratory Rate 19 17 17 Blood Pressure 97/36 L 94/36 L Pulse Oximetry Oxygen Delivery Oxygen Flow Rate 07/06/24 20:12 07/06/24 20:15 07/06/24 20:24 Temperature 37.9 C H 37.9 C H Pulse Rate 87 85 Respiratory Rate 17 17 Blood Pressure 92/40 L 119/64 Pulse Oximetry Oxygen Delivery Oxygen Flow Rate 07/06/24 20:29 07/06/24 20:30 07/06/24 20:52 Temperature 37.7 C H Pulse Rate 85 94 Respiratory Rate 17 Blood Pressure 119/64 90/39 L Pulse Oximetry 100 Oxygen Delivery Oxygen Flow Rate 07/06/24 20:58 07/06/24 21:00 07/06/24 21:01 Temperature 37.6 C 37.6 C 37.6 C Pulse Rate 92 93 94 Respiratory Rate 16 16 16 Blood Pressure 107/93 H 110/67 Pulse Oximetry 100 100 100 Oxygen Delivery Oxygen Flow Rate 07/06/24 21:05 07/06/24 21:10 07/06/24 21:15 Temperature 37.6 C 37.5 C 37.4 C Pulse Rate 94 93 Respiratory Rate 17 15 Blood Pressure 105/67 Pulse Oximetry 100 100 Oxygen Delivery Oxygen Flow Rate 07/06/24 21:20 07/06/24 21:30 07/06/24 21:31 Temperature 37.4 C 37.4 C 37.4 C Pulse Rate 93 93 94 Respiratory Rate 17 18 16 Blood Pressure 109/57 L 112/65 Pulse Oximetry 100 100 Oxygen Delivery Oxygen Flow Rate 07/06/24 21:40 07/06/24 21:51 07/06/24 22:00 Temperature 37.4 C 37.3 C Pulse Rate 93 93 93 Respiratory Rate 18 16 Blood Pressure 107/53 L Pulse Oximetry 100 100 Oxygen Delivery Oxygen Flow Rate 07/06/24 22:04 07/06/24 22:51 07/06/24 22:55 Temperature 37.6 C Pulse Rate 87 Respiratory Rate Blood Pressure 107/37 L 118/89 Pulse Oximetry 100 Oxygen Delivery Nasal Cannula Oxygen Flow Rate 5 07/06/24 23:00 07/06/24 23:00 07/06/24 23:01 Temperature 37.3 C 37.3 C Pulse Rate 90 92 92 Respiratory Rate 19 13 Blood Pressure 85/41 L 85/41 L Pulse Oximetry 100 100 Oxygen Delivery Oxygen Flow Rate 07/06/24 23:04 07/06/24 23:15 07/06/24 23:15 Temperature 37.3 C 37.3 C Pulse Rate 92 91 90 Respiratory Rate 19 15 Blood Pressure 110/44 L 114/47 L 114/47 L Pulse Oximetry 100 100 Oxygen Delivery Oxygen Flow Rate 07/06/24 23:16 07/06/24 23:30 07/06/24 23:31 Temperature 37.3 C 37.2 C 37.2 C Pulse Rate 90 90 90 Respiratory Rate 16 15 14 Blood Pressure 114/43 L Pulse Oximetry 100 100 100 Oxygen Delivery Oxygen Flow Rate 07/06/24 23:45 07/06/24 23:46 07/06/24 23:53 Temperature 37.1 C 37.1 C Pulse Rate 89 89 90 Respiratory Rate 14 16 16 Blood Pressure 113/47 L Pulse Oximetry 100 100 100 Oxygen Delivery Nasal Cannula Oxygen Flow Rate 1 07/07/24 00:00 07/07/24 00:00 07/07/24 00:00 Temperature 37.0 C Pulse Rate 89 89 89 Respiratory Rate 13 Blood Pressure 119/46 L 119/46 L Pulse Oximetry 100 Oxygen Delivery Oxygen Flow Rate 07/07/24 00:00 07/07/24 00:01 07/07/24 00:15 Temperature 37.0 C 37.0 C 36.9 C Pulse Rate 89 89 92 Respiratory Rate 14 14 16 Blood Pressure 119/46 L 125/42 L Pulse Oximetry 100 100 100 Oxygen Delivery Oxygen Flow Rate 07/07/24 00:16 07/07/24 00:30 07/07/24 00:31 Temperature 36.9 C 36.9 C 36.9 C Pulse Rate 91 88 88 Respiratory Rate 17 16 14 Blood Pressure 130/50 L Pulse Oximetry 100 100 100 Oxygen Delivery Oxygen Flow Rate 07/07/24 00:33 07/07/24 00:45 07/07/24 00:45 Temperature 36.8 C Pulse Rate 88 91 91 Respiratory Rate 15 Blood Pressure 130/50 L 138/51 L 138/51 L Pulse Oximetry 98 Oxygen Delivery Oxygen Flow Rate 07/07/24 00:46 07/07/24 00:51 07/07/24 00:58 Temperature 36.8 C 36.8 C Pulse Rate 91 87 90 Respiratory Rate 13 14 Blood Pressure 138/52 L 138/52 L Pulse Oximetry 98 98 Oxygen Delivery Oxygen Flow Rate 07/07/24 01:00 07/07/24 01:01 07/07/24 01:02 Temperature 36.7 C 36.7 C Pulse Rate 90 90 90 Respiratory Rate 15 14 Blood Pressure 135/44 L 135/44 L Pulse Oximetry 97 97 Oxygen Delivery Oxygen Flow Rate 07/07/24 01:15 07/07/24 01:15 07/07/24 01:16 Temperature 36.3 C L 36.3 C L Pulse Rate 84 86 86 Respiratory Rate 14 14 Blood Pressure 125/45 L 125/45 L Pulse Oximetry 97 98 Oxygen Delivery Oxygen Flow Rate 07/07/24 01:30 07/07/24 01:31 07/07/24 01:33 Temperature 36.2 C L 36.2 C L Pulse Rate 87 87 85 Respiratory Rate 18 19 Blood Pressure 113/56 L 113/56 L Pulse Oximetry 98 98 Oxygen Delivery Oxygen Flow Rate 07/07/24 01:46 07/07/24 01:51 07/07/24 02:00 Temperature 36.3 C L 36.3 C L Pulse Rate 72 74 81 Respiratory Rate 14 13 Blood Pressure 97/44 L 131/52 L Pulse Oximetry 97 98 Oxygen Delivery Oxygen Flow Rate 07/07/24 02:00 07/07/24 02:00 07/07/24 02:00 Temperature 36.3 C L Pulse Rate 81 81 81 Respiratory Rate 14 14 Blood Pressure 131/52 L 131/52 L Pulse Oximetry 98 98 Oxygen Delivery Oxygen Flow Rate 07/07/24 02:01 07/07/24 02:15 07/07/24 02:16 Temperature 36.3 C L 36.3 C L 36.3 C L Pulse Rate 81 79 78 Respiratory Rate 14 13 14 Blood Pressure 121/45 L Pulse Oximetry 97 98 98 Oxygen Delivery Oxygen Flow Rate 07/07/24 02:30 07/07/24 02:31 07/07/24 02:44 Temperature 36.3 C L 36.3 C L Pulse Rate 79 79 77 Respiratory Rate 13 13 Blood Pressure 121/51 L 121/51 L Pulse Oximetry 98 98 Oxygen Delivery Oxygen Flow Rate 07/07/24 02:45 07/07/24 02:46 07/07/24 02:55 Temperature 36.2 C L 36.2 C L Pulse Rate 77 77 74 Respiratory Rate 13 14 Blood Pressure 116/45 L 116/45 L Pulse Oximetry 99 98 Oxygen Delivery Oxygen Flow Rate 07/07/24 03:00 07/07/24 03:01 07/07/24 03:15 Temperature 36.2 C L 36.2 C L 36.2 C L Pulse Rate 76 76 75 Respiratory Rate 12 14 13 Blood Pressure 116/48 L 117/48 L Pulse Oximetry 99 99 98 Oxygen Delivery Oxygen Flow Rate 07/07/24 03:16 07/07/24 03:30 07/07/24 03:31 Temperature 36.2 C L 36.1 C L 36.1 C L Pulse Rate 76 77 79 Respiratory Rate 13 14 17 Blood Pressure 121/47 L Pulse Oximetry 99 95 99 Oxygen Delivery Oxygen Flow Rate 07/07/24 03:35 07/07/24 03:45 07/07/24 03:46 Temperature 36.1 C L 36.1 C L Pulse Rate 78 77 Respiratory Rate 17 14 Blood Pressure 121/47 L 119/53 L Pulse Oximetry 99 99 Oxygen Delivery Oxygen Flow Rate 07/07/24 03:48 07/07/24 04:00 07/07/24 04:00 Temperature Pulse Rate 77 73 75 Respiratory Rate 17 Blood Pressure 119/73 Pulse Oximetry 99 Oxygen Delivery Room Air Oxygen Flow Rate 07/07/24 04:00 07/07/24 04:00 07/07/24 04:00 Temperature 36.1 C L 36.1 C L Pulse Rate 73 73 73 Respiratory Rate 17 14 Blood Pressure 133/42 L 113/42 L 113/42 L Pulse Oximetry 99 98 Oxygen Delivery Oxygen Flow Rate 07/07/24 04:01 07/07/24 04:15 07/07/24 04:16 Temperature 36.1 C L 36.1 C L 36.1 C L Pulse Rate 73 71 72 Respiratory Rate 15 15 15 Blood Pressure 110/42 L Pulse Oximetry 98 98 98 Oxygen Delivery Oxygen Flow Rate 07/07/24 04:30 07/07/24 04:31 07/07/24 06:00 Temperature 36.1 C L 36.1 C L Pulse Rate 71 70 71 Respiratory Rate 14 14 Blood Pressure 104/45 L Pulse Oximetry 99 99 Oxygen Delivery Oxygen Flow Rate 07/07/24 06:00 07/07/24 06:00 07/07/24 06:20 Temperature 36.2 C L Pulse Rate 71 71 73 Respiratory Rate 14 Blood Pressure 101/46 L 101/46 L 96/40 L Pulse Oximetry 99 Oxygen Delivery Oxygen Flow Rate 07/07/24 06:40 07/07/24 07:00 07/07/24 07:39 Temperature 36.3 C L Pulse Rate 72 73 71 Respiratory Rate 18 Blood Pressure 101/42 L 107/44 L 88/52 L Pulse Oximetry 99 Oxygen Delivery Oxygen Flow Rate 07/07/24 08:15 Temperature Pulse Rate 72 Respiratory Rate Blood Pressure 93/40 L Pulse Oximetry Oxygen Delivery Oxygen Flow Rate Exam Narrative: General: Pt is drowsy but easily arousable and in NAD Lungs/Chest: Trachea central Clear BS B/L, No crackles or wheezing. Cardiac: RRR. Normal S1 S2. No murmurs Circulation: Bilateral AKA Abdomen: Normal bowel sounds. Obese. Soft. NT. ND. Extremities: bilateral AKA : Kaplan in place Neurologic: She is drowsy but arousable and open her eyes on stimulation, followed commands with right upper extremity, facial asymmetry, PERRL Skin: Sacral maceration Results Labs 07/07/24 06:02 07/07/24 06:02 Labs: Impressions Chest X-Ray 07/06/24 18:54 IMPRESSION: Bilateral perihilar pneumonia. The left central line tip is noted at the junction of the superior vena cava and left brachiocephalic vein. Head CT 07/06/24 19:40 IMPRESSION: No acute intracranial findings. Chest/Abdomen/Pelvis CT 07/06/24 21:16 IMPRESSION: CHEST: 1. Cardiomegaly with pericardial effusion. 2. No evidence of pneumonia or pneumothorax. 3. Right anterior chest wall seroma versus breast implant. ABDOMEN/PELVIS: 1. No evidence of appendicitis, diverticulitis or intestinal obstruction. 2. Thickened wall of the rectum which may indicate proctitis. Clinical correlation advised. 3. Air seen in the left pelvicalyceal system with hydronephrotic changes. Infection cannot be excluded. Further evaluation advised. 4. Seen in the area bladder with Kaplan's catheter. 5. Seroma in the anterior abdominal wall with wall calcification. Short CBC 07/06/24 07/07/24 Range/Units 18:23 06:02 WBC 18.9 H 16.1 H (4.5-10.0) K/mm3 Hgb 9.8 L 8.7 L (12.0-15.0) g/dL Hct 30.8 L 28.2 L (37.0-47.0) % Plt Count 268 249 (150-375) k/mm3 BMP 07/06/24 07/07/24 18:23 06:02 Sodium 136 L 139 Potassium 5.1 H 3.6 Chloride 103 106 Carbon Dioxide 19 L 20 L BUN 80 H D 73 H Creatinine 2.03 H 1.75 H Glucose 168 H 320 H Calcium 9.1 7.9 L Liver Function 07/06/24 07/07/24 Range/Units 18:23 06:02 Total Bilirubin 1.1 0.8 (0.2-1.3) mg/dL AST 26 24 (14-36) U/L ALT 16 17 (6-35) U/L Alkaline Phosphatase 54 50 (38-126) U/L Albumin 3.9 3.4 L (3.5-5.1) g/dL Urine 07/06/24 Range/Units 18:57 Urine Color Yellow (Yellow) Urine Appearance Turbid H (Clear) Urine pH 5.0 (5.0-9.0) Ur Specific [place] 1.014 (1.001-1.035) Urine Protein 3+ H (Negative) mg/dL Urine Glucose (UA) 2+ H (Negative) mg/dL
[2024-07-07] MEDS: PANTOPRAZOLE SODIUM IV 40 MG VIAL IV PUSH (08:36)
[2024-07-07] MEDS: MUPIROCIN 2% OINT 22 GM TUBE 1 APPLIC EACH NARE ×2 (08:37→20:27)
[2024-07-07] MEDS: FLUCONAZOLE 200 MG/NACL 100 ML 200 MG/100 ML BAG 100 MG IVPB (08:37)
[2024-07-07] MEDS: ENOXAPARIN 30 MG/0.3 ML SYRINGE SUB-Q (08:38)
[2024-07-07] MEDS: BISACODYL 10 MG SUPPOSITORY RECTAL (08:38)
[2024-07-07 09:10] LABS: Ammonia < 9 umol/L (9-30)
--- NOTE | 2024-07-07 09:51 | PM.IMPN ---
Progress Note: A&P Assessment and Plan (1) Septic shock: Code(s): A41.9 - Sepsis, unspecified organism; R65.21 - Severe sepsis with septic shock Status: Acute Assessment and Plan: Septic shock secondary to UTI. Patient has a chronic indwelling urinary catheter. Patient also has a history of ESBL. UA is also showing yeast and patient does have history yeast in her urine Continue IV fluids with decreased rate CT scan does not show any stone or obstruction. Kaplan has been changed Continue Levophed to maintain mean arterial pressure IV meropenem and fluconazole Blood and urine culture 07/07/2024 Will continue with antibiotics, cultures pending (2) Combined systolic and diastolic congestive heart failure: Qualifiers: Heart failure chronicity: acute on chronic Qualified Code(s): I50.43 - Acute on chronic combined systolic (congestive) and diastolic (congestive) heart failure Code(s): I50.40 - Unspecified combined systolic (congestive) and diastolic (congestive) heart failure Status: Acute Assessment and Plan: Order Echo, Continue to monitor closely (3) Type 2 diabetes mellitus: Code(s): E11.9 - Type 2 diabetes mellitus without complications Status: Acute Assessment and Plan: Sliding scale insulin Change IV fluids from dextrose to LR (4) Diarrhea: Code(s): R19.7 - Diarrhea, unspecified Status: Acute Assessment and Plan: Patient has chronic constipation and also has diarrhea. Patient was recently diagnosed with C diff associated diarrhea Continue p.o. vancomycin as patient has been started on IV antibiotic Laxatives (5) ABDIRASHID (acute kidney injury): Code(s): N17.9 - Acute kidney failure, unspecified Status: Acute Assessment and Plan: Patient has chronic kidney disease with creatinine 1.2-1.4 Presented with creatinine of 2.1 likely secondary to septic shock CT scan does not show any stone or obstruction Monitor urine output electrolytes and creatinine IV fluid Maintain mean arterial pressure with vasopressors Patient is on IV fluids with bicarb I will change that to LR (6) Catheter-associated urinary tract infection: Qualifiers: Indwelling urinary catheter type: indwelling urethral catheter Encounter type: initial encounter Qualified Code(s): T83.511A - Infection and inflammatory reaction due to indwelling urethral catheter, initial encounter; N39.0 - Urinary tract infection, site not specified Code(s): T83.511A - Infection and inflammatory reaction due to indwelling urethral catheter, initial encounter; N39.0 - Urinary tract infection, site not specified Status: Acute Assessment and Plan: See above (7) C. difficile diarrhea: Onset Date: 01/2024 Code(s): A04.72 - Enterocolitis due to Clostridium difficile, not specified as recurrent Status: Acute Assessment and Plan: See above (8) Acute metabolic encephalopathy: Code(s): G93.41 - Metabolic encephalopathy Status: Acute Assessment and Plan: Exam as above Acute metabolic encephalopathy likely secondary to septic shocks and medications Check TSH and ammonia level Head CT reviewed Hold gabapentin and other sedative (9) Abnormal breast finding: Code(s): N64.59 - Other signs and symptoms in breast Status: Acute Assessment and Plan: Patient has a right anterior chest wall seroma versus breast implant on the CT scan. This is a known finding and was evaluated in January of 2024 by general surgery and was found to be not causing issues hence no further treatment was recommended. (10) Metabolic acidosis: Code(s): E87.20 - Acidosis, unspecified Status: Acute Assessment and Plan: Improved with IV fluids with bicarb. Will change to LR. Monitor (11) Electrolyte abnormality: Code(s): E87.8 - Other disorders of electrolyte and fluid balance, not elsewhere classified Status: Acute Assessment and Plan: Replace low potassium and magnesium Plan DVT prophylaxis -Lovenox Stress ulcer prophylaxis -PPI Nutrition -will resume diet once patient's mental status improved Code Status -patient is DNR DNI as per her advance directive from [place] [facility] Subjective Date/time seen: 07/07/24 09:51 Interval history: Patient was seen during the morning rounds today Responding to verbal commands slightly No new overnight compolaints Review of Systems Review of Systems: Do the patient's history of dementia and acute metabolic encephalopathy she is unable to provide meaningful history and review of systems is unreliable. ROS unobtainable: Yes unobtainable due to medical condition and unobtainable due to mental status Exam Narrative: General: Pt is drowsy but easily arousable and in NAD Lungs/Chest: Trachea central Clear BS B/L, No crackles or wheezing. Cardiac: RRR. Normal S1 S2. No murmurs Circulation: Bilateral AKA Abdomen: Normal bowel sounds. Obese. Soft. NT. ND. Extremities: bilateral AKA : Kaplan in place Neurologic: She is drowsy but arousable and open her eyes on stimulation, followed commands with right upper extremity, facial asymmetry, PERRL Skin: Sacral maceration Const: Other: Acute on Chronically ill-appearing, obese, debilitated, appears older than stated age HENMT: Other: Head is normocephalic atraumatic, mucous membranes are dry, edentulous in upper and lower jaw Eyes: Other: Pupils are equal and reactive, positive conjunctival pallor, no scleral icterus Neck: Other: No JVD, large neck circumference, left triple-lumen IJ in place Resp: Other: Decreased breath sounds throughout, no tachypnea Cardio: Other: Regular rate, regular rhythm, 2+ bilateral radial pulses, 2+ bilateral femoral pulses, no JVD GI: Other: Distended, nontender, large protrusion of anterior abdominal wall is firm, nontender, hypoactive bowel sounds : Other: Temperature probe Kaplan in place, urine appears milky but pale yellow Skin: Other: Patient has some small stage II decubitus ulcers to the buttock and upper medial thighs, multiple areas of scarring from prior healed decubitus ulcers the largest of which is on the right posterior thigh at the base of the buttock, previously healed ulcer at the posterior right labia, dried flaking skin from the bilateral lower extremity stumps Neuro: Other: Patient is little lethargic and difficult to arouse but once awake is oriented to person, place and year, she thought the month was September, she is slow to respond in only intermittently follows commands Extrem: Other: Bilateral [id number] amputations no wounds to the stumps, 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/5 warp dresser strength bilateral, no clubbing, no cyanosis Psych: Other: Pleasantly confused, cooperative, poor judgment and insight Objective Data Vital Signs Vital Signs: Vital Signs - 24 hr 07/06/24 18:01 07/06/24 18:05 07/06/24 18:15 Temperature Pulse Rate 89 83 75 Respiratory Rate 20 17 Blood Pressure 57/34 L 71/28 L 77/29 L Pulse Oximetry 100 Oxygen Delivery Oxygen Flow Rate 07/06/24 18:20 07/06/24 18:29 07/06/24 18:30 Temperature Pulse Rate 82 71 86 Respiratory Rate 21 H 21 H Blood Pressure 52/29 L 52/29 L 80/47 L Pulse Oximetry 100 100 Oxygen Delivery Oxygen Flow Rate 07/06/24 18:34 07/06/24 18:40 07/06/24 18:50 Temperature Pulse Rate 86 81 58 L Respiratory Rate 21 H 19 22 H Blood Pressure 99/43 L 81/71 L 107/48 L Pulse Oximetry 100 100 100 Oxygen Delivery Oxygen Flow Rate 07/06/24 19:00 07/06/24 19:10 07/06/24 19:11 Temperature 37.6 C 37.9 C H 37.9 C H Pulse Rate 76 75 51 L Respiratory Rate 17 17 17 Blood Pressure 103/42 L 98/43 L Pulse Oximetry 100 100 100 Oxygen Delivery Oxygen Flow Rate 07/06/24 19:25 07/06/24 19:36 07/06/24 19:40 Temperature 38.0 C H 38.1 C H Pulse Rate 35 L Respiratory Rate 17 16 Blood Pressure 88/65 L 86/49 L Pulse Oximetry 98 100 100 Oxygen Delivery Nasal Cannula Oxygen Flow Rate 2 07/06/24 19:43 07/06/24 19:45 07/06/24 19:50 Temperature 38.1 C H 38.1 C H Pulse Rate 80 87 Respiratory Rate 17 18 Blood Pressure 86/49 L 100/58 L Pulse Oximetry 100 100 Oxygen Delivery Oxygen Flow Rate 07/06/24 20:00 07/06/24 20:01 07/06/24 20:10 Temperature 38.0 C H 38.0 C H 37.9 C H Pulse Rate 89 92 89 Respiratory Rate 19 17 17 Blood Pressure 97/36 L 94/36 L Pulse Oximetry Oxygen Delivery Oxygen Flow Rate 07/06/24 20:12 07/06/24 20:15 07/06/24 20:24 Temperature 37.9 C H 37.9 C H Pulse Rate 87 85 Respiratory Rate 17 17 Blood Pressure 92/40 L 119/64 Pulse Oximetry Oxygen Delivery Oxygen Flow Rate 07/06/24 20:29 07/06/24 20:30 07/06/24 20:52 Temperature 37.7 C H Pulse Rate 85 94 Respiratory Rate 17 Blood Pressure 119/64 90/39 L Pulse Oximetry 100 Oxygen Delivery Oxygen Flow Rate 07/06/24 20:58 07/06/24 21:00 07/06/24 21:01 Temperature 37.6 C 37.6 C 37.6 C Pulse Rate 92 93 94 Respiratory Rate 16 16 16 Blood Pressure 107/93 H 110/67 Pulse Oximetry 100 100 100 Oxygen Delivery Oxygen Flow Rate 07/06/24 21:05 07/06/24 21:10 07/06/24 21:15 Temperature 37.6 C 37.5 C 37.4 C Pulse Rate 94 93 Respiratory Rate 17 15 Blood Pressure 105/67 Pulse Oximetry 100 100 Oxygen Delivery Oxygen Flow Rate 07/06/24 21:20 07/06/24 21:30 07/06/24 21:31 Temperature 37.4 C 37.4 C 37.4 C Pulse Rate 93 93 94 Respiratory Rate 17 18 16 Blood Pressure 109/57 L 112/65 Pulse Oximetry 100 100 Oxygen Delivery Oxygen Flow Rate 07/06/24 21:40 07/06/24 21:51 07/06/24 22:00 Temperature 37.4 C 37.3 C Pulse Rate 93 93 93 Respiratory Rate 18 16 Blood Pressure 107/53 L Pulse Oximetry 100 100 Oxygen Delivery Oxygen Flow Rate 07/06/24 22:04 07/06/24 22:51 07/06/24 22:55 Temperature 37.6 C Pulse Rate 87 Respiratory Rate Blood Pressure 107/37 L 118/89 Pulse Oximetry 100 Oxygen Delivery Nasal Cannula Oxygen Flow Rate 5 07/06/24 23:00 07/06/24 23:00 07/06/24 23:01 Temperature 37.3 C 37.3 C Pulse Rate 90 92 92 Respiratory Rate 19 13 Blood Pressure 85/41 L 85/41 L Pulse Oximetry 100 100 Oxygen Delivery Oxygen Flow Rate 07/06/24 23:04 07/06/24 23:15 07/06/24 23:15 Temperature 37.3 C 37.3 C Pulse Rate 92 91 90 Respiratory Rate 19 15 Blood Pressure 110/44 L 114/47 L 114/47 L Pulse Oximetry 100 100 Oxygen Delivery Oxygen Flow Rate 07/06/24 23:16 07/06/24 23:30 07/06/24 23:31 Temperature 37.3 C 37.2 C 37.2 C Pulse Rate 90 90 90 Respiratory Rate 16 15 14 Blood Pressure 114/43 L Pulse Oximetry 100 100 100 Oxygen Delivery Oxygen Flow Rate 07/06/24 23:45 07/06/24 23:46 07/06/24 23:53 Temperature 37.1 C 37.1 C Pulse Rate 89 89 90 Respiratory Rate 14 16 16 Blood Pressure 113/47 L Pulse Oximetry 100 100 100 Oxygen Delivery Nasal Cannula Oxygen Flow Rate 1 07/07/24 00:00 07/07/24 00:00 07/07/24 00:00 Temperature 37.0 C Pulse Rate 89 89 89 Respiratory Rate 13 Blood Pressure 119/46 L 119/46 L Pulse Oximetry 100 Oxygen Delivery Oxygen Flow Rate 07/07/24 00:00 07/07/24 00:01 07/07/24 00:15 Temperature 37.0 C 37.0 C 36.9 C Pulse Rate 89 89 92 Respiratory Rate 14 14 16 Blood Pressure 119/46 L 125/42 L Pulse Oximetry 100 100 100 Oxygen Delivery Oxygen Flow Rate 07/07/24 00:16 07/07/24 00:30 07/07/24 00:31 Temperature 36.9 C 36.9 C 36.9 C Pulse Rate 91 88 88 Respiratory Rate 17 16 14 Blood Pressure 130/50 L Pulse Oximetry 100 100 100 Oxygen Delivery Oxygen Flow Rate 07/07/24 00:33 07/07/24 00:45 07/07/24 00:45 Temperature 36.8 C Pulse Rate 88 91 91 Respiratory Rate 15 Blood Pressure 130/50 L 138/51 L 138/51 L Pulse Oximetry 98 Oxygen Delivery Oxygen Flow Rate 07/07/24 00:46 07/07/24 00:51 07/07/24 00:58 Temperature 36.8 C 36.8 C Pulse Rate 91 87 90 Respiratory Rate 13 14 Blood Pressure 138/52 L 138/52 L Pulse Oximetry 98 98 Oxygen Delivery Oxygen Flow Rate 07/07/24 01:00 07/07/24 01:01 07/07/24 01:02 Temperature 36.7 C 36.7 C Pulse Rate 90 90 90 Respiratory Rate 15 14 Blood Pressure 135/44 L 135/44 L Pulse Oximetry 97 97 Oxygen Delivery Oxygen Flow Rate 07/07/24 01:15 07/07/24 01:15 07/07/24 01:16 Temperature 36.3 C L 36.3 C L Pulse Rate 84 86 86 Respiratory Rate 14 14 Blood Pressure 125/45 L 125/45 L Pulse Oximetry 97 98 Oxygen Delivery Oxygen Flow Rate 07/07/24 01:30 07/07/24 01:31 07/07/24 01:33 Temperature 36.2 C L 36.2 C L Pulse Rate 87 87 85 Respiratory Rate 18 19 Blood Pressure 113/56 L 113/56 L Pulse Oximetry 98 98 Oxygen Delivery Oxygen Flow Rate 07/07/24 01:46 07/07/24 01:51 07/07/24 02:00 Temperature 36.3 C L 36.3 C L Pulse Rate 72 74 81 Respiratory Rate 14 13 Blood Pressure 97/44 L 131/52 L Pulse Oximetry 97 98 Oxygen Delivery Oxygen Flow Rate 07/07/24 02:00 07/07/24 02:00 07/07/24 02:00 Temperature 36.3 C L Pulse Rate 81 81 81 Respiratory Rate 14 14 Blood Pressure 131/52 L 131/52 L Pulse Oximetry 98 98 Oxygen Delivery Oxygen Flow Rate 07/07/24 02:01 07/07/24 02:15 07/07/24 02:16 Temperature 36.3 C L 36.3 C L 36.3 C L Pulse Rate 81 79 78 Respiratory Rate 14 13 14 Blood Pressure 121/45 L Pulse Oximetry 97 98 98 Oxygen Delivery Oxygen Flow Rate 07/07/24 02:30 07/07/24 02:31 07/07/24 02:44 Temperature 36.3 C L 36.3 C L Pulse Rate 79 79 77 Respiratory Rate 13 13 Blood Pressure 121/51 L 121/51 L Pulse Oximetry 98 98 Oxygen Delivery Oxygen Flow Rate 07/07/24 02:45 07/07/24 02:46 07/07/24 02:55 Temperature 36.2 C L 36.2 C L Pulse Rate 77 77 74 Respiratory Rate 13 14 Blood Pressure 116/45 L 116/45 L Pulse Oximetry 99 98 Oxygen Delivery Oxygen Flow Rate 07/07/24 03:00 07/07/24 03:01 07/07/24 03:15 Temperature 36.2 C L 36.2 C L 36.2 C L Pulse Rate 76 76 75 Respiratory Rate 12 14 13 Blood Pressure 116/48 L 117/48 L Pulse Oximetry 99 99 98 Oxygen Delivery Oxygen Flow Rate 07/07/24 03:16 07/07/24 03:30 07/07/24 03:31 Temperature 36.2 C L 36.1 C L 36.1 C L Pulse Rate 76 77 79 Respiratory Rate 13 14 17 Blood Pressure 121/47 L Pulse Oximetry 99 95 99 Oxygen Delivery Oxygen Flow Rate 07/07/24 03:35 07/07/24 03:45 07/07/24 03:46 Temperature 36.1 C L 36.1 C L Pulse Rate 78 77 Respiratory Rate 17 14 Blood Pressure 121/47 L 119/53 L Pulse Oximetry 99 99 Oxygen Delivery Oxygen Flow Rate 07/07/24 03:48 07/07/24 04:00 07/07/24 04:00 Temperature Pulse Rate 77 73 75 Respiratory Rate 17 Blood Pressure 119/73 Pulse Oximetry 99 Oxygen Delivery Room Air Oxygen Flow Rate 07/07/24 04:00 07/07/24 04:00 07/07/24 04:00 Temperature 36.1 C L 36.1 C L Pulse Rate 73 73 73 Respiratory Rate 17 14 Blood Pressure 133/42 L 113/42 L 113/42 L Pulse Oximetry 99 98 Oxygen Delivery Oxygen Flow Rate 07/07/24 04:01 07/07/24 04:15 07/07/24 04:16 Temperature 36.1 C L 36.1 C L 36.1 C L Pulse Rate 73 71 72 Respiratory Rate 15 15 15 Blood Pressure 110/42 L Pulse Oximetry 98 98 98 Oxygen Delivery Oxygen Flow Rate 07/07/24 04:30 07/07/24 04:31 07/07/24 06:00 Temperature 36.1 C L 36.1 C L Pulse Rate 71 70 71 Respiratory Rate 14 14 Blood Pressure 104/45 L Pulse Oximetry 99 99 Oxygen Delivery Oxygen Flow Rate 07/07/24 06:00 07/07/24 06:00 07/07/24 06:20 Temperature 36.2 C L Pulse Rate 71 71 73 Respiratory Rate 14 Blood Pressure 101/46 L 101/46 L 96/40 L Pulse Oximetry 99 Oxygen Delivery Oxygen Flow Rate 07/07/24 06:40 07/07/24 07:00 07/07/24 07:39 Temperature 36.3 C L Pulse Rate 72 73 71 Respiratory Rate 18 Blood Pressure 101/42 L 107/44 L 88/52 L Pulse Oximetry 99 Oxygen Delivery Oxygen Flow Rate 07/07/24 08:15 Temperature Pulse Rate 72 Respiratory Rate Blood Pressure 93/40 L Pulse Oximetry Oxygen Delivery Oxygen Flow Rate Intake/Output Intake/Output: Intake & Output 07/04/24 07/05/24 07/06/24 07/07/24 23:59 23:59 23:59 23:59 Intake Total 3029.4 1319.1 Output Total 575 Balance 3029.4 744.1 Meds/Results Medications: Active Medications Generic Name Dose Route Start Last Admin Trade Name Freq PRN Reason Stop Dose Admin Acetaminophen 650 mg 07/06/24 21:49 Acetaminophen 650 Mg Suppository RECTAL Q6H PRN Mild Pain (1-3) or Fever Bisacodyl 10 mg 07/07/24 09:00 07/07/24 08:38 Bisacodyl 10 Mg Suppository RECTAL 10 mg DAILY KASIE Administration Cyanocobalamin 1,000 mcg 07/07/24 09:00 07/07/24 08:20 Cyanocobalamin 1,000 Mcg Tablet PO Not Given DAILY KASIE Dextrose 12.5 gm 07/06/24 23:43 Dextrose 50% 25 Gm/50 Ml Syringe IV PUSH PRN PRN Hypoglycemia Protocol Enoxaparin Sodium 30 mg 07/07/24 09:00 07/07/24 08:38 Enoxaparin 30 Mg/0.3 Ml Syringe SUB-Q 30 mg DAILY KASIE Administration Glucagon 1 mg 07/06/24 23:43 Glucagon For Inj 1 Mg Vial IM PRN PRN Hypoglycemia Protocol Glucose 15 gm 07/06/24 23:43 Glucose Oral Gel 15 Gm Of Glucse In 37.5 Gm Tube PO PRN PRN Hypoglycemia Protocol Meropenem 500 mg in 100 mls @ 200 mls/hr 07/07/24 08:00 07/07/24 08:30 IVPB Infused Q12H KASIE Infusion Dextrose 1,000 mls @ 100 mls/hr 07/06/24 23:43 Dextrose 5% 1,000 Ml IVPB PRN PRN Hypoglycemia Protocol Norepinephrine Bitartrate 8 mg in 250 mls @ 16.875 mls/hr 07/07/24 02:55 07/07/24 08:15 Levophed 8 Mg/D5w 250 Ml IV CONT 9 mcg/min .[id number] KASIE 16.88 mls/hr Titration Protocol 9 MCG/MIN Fluconazole 200 mg in 100 mls @ 100 mls/hr 07/07/24 09:00 07/07/24 08:37 Diflucan 200 Mg/Nacl 100 Ml IVPB 07/21/24 08:59 100 mls/hr DAILY KASIE Administration Potassium Chloride/Sodium Chloride 1,000 mls @ 75 mls/hr 07/07/24 08:10 Kcl 20 Meq/0.45% Ns IV CONT 07/08/24 08:09 .[id number] KASIE Magnesium Sulfate 2 gm in 50 mls @ 25 mls/hr 07/07/24 08:41 Magnesium Sulf 2 Gm/Water 50ml IVPB 07/07/24 10:40 ONCE ONE Insulin Aspart 2 - 5 units 07/07/24 09:00 07/07/24 08:57 Insulin Aspart (*Bkc) 100 Units/Ml SUB-Q Not Given Q4HR [facility] Protocol Levothyroxine Sodium 100 mcg 07/07/24 06:30 07/07/24 06:18 Levothyroxine Sodium 100 Mcg Tablet PO 100 mcg DAILY@0630 KASIE Administration Mupirocin 1 applic 07/07/24 09:00 07/07/24 08:37 Mupirocin 2% Oint 22 Gm Tube EACH NARE 07/11/24 21:01 1 applic Q12HR KASIE Administration Pantoprazole Sodium 40 mg 07/07/24 09:00 07/07/24 08:36 Pantoprazole Sodium Iv 40 Mg Vial IV PUSH 40 mg QAM KASIE Administration Perflutren Lipid Microsphere 0 ml 07/07/24 08:05 Perflutren Lipid Microspheres 1.5 Ml Vial Diluted To 10 Ml Total Volume IV PUSH 07/10/24 08:05 ONCE PRN adequate visualization Protocol Sodium Chloride 10 ml 07/06/24 22:00 07/07/24 06:18 Central Line Flush IV PUSH 10 ml Q8HR KASIE Administration Sodium Chloride 20 ml 07/06/24 19:24 Central Line Flush IV PUSH PRN PRN after blood draws Tramadol HCl 50 mg 07/06/24 23:29 Tramadol Hcl (*Crx) 50 Mg Tablet PO Q8H PRN pain 4-10 Vancomycin HCl 125 mg 07/07/24 00:00 07/07/24 06:18 Vancomycin Hcl 125 Mg Oral Capsule PO 07/17/24 00:00 125 mg Q6HR KASIE Administration Radiology Results: ITS Impressions Chest X-Ray 07/06/24 18:54 IMPRESSION: Bilateral perihilar pneumonia. The left central line tip is noted at the junction of the superior vena cava and left brachiocephalic vein. Head CT 07/06/24 19:40 IMPRESSION: No acute intracranial findings. Chest/Abdomen/Pelvis CT 07/06/24 21:16 IMPRESSION: CHEST: 1. Cardiomegaly with pericardial effusion. 2. No evidence of pneumonia or pneumothorax. 3. Right anterior chest wall seroma versus breast implant. ABDOMEN/PELVIS: 1. No evidence of appendicitis, diverticulitis or intestinal obstruction. 2. Thickened wall of the rectum which may indicate proctitis. Clinical correlation advised. 3. Air seen in the left pelvicalyceal system with hydronephrotic changes. Infection cannot be excluded. Further evaluation advised. 4. Seen in the area bladder with Kaplan's catheter. 5. Seroma in the anterior abdominal wall with wall calcification. Labs Labs: Laboratory Results - last 24 hr 07/06/24 07/06/24 07/06/24 18:23 18:57 23:15 WBC 18.9 H RBC 3.21 L Hgb 9.8 L Hct 30.8 L MCV 96.0 MCH 30.5 MCHC 31.8 L RDW 15.0 H Plt Count 268 MPV 9.8 Immature Gran % (Auto) Not Reportable Neut % (Auto) Not Reportable Lymph % (Auto) Not Reportable [place] % (Auto) Not Reportable Eos % (Auto) Not Reportable Baso % (Auto) Not Reportable Lymph # (Auto) Not Reportable [place] # (Auto) Not Reportable Eos # (Auto) Not Reportable Baso # (Auto) Not Reportable Abs Immat Gran (auto) Not Reportable Absolute Neuts (auto) Not Reportable Absolute Nucleated RBC Not Reportable Total Counted 100 Neutrophils % (Manual) 83 H Band Neutrophils % 9 H Lymphocytes % (Manual) 7.0 L Monocytes % (Manual) 1 L Nucleated RBC % Not Reportable Abs Neuts (Manual) 17.38 H Abs Lymphs (Manual) 1.32 Abs Monocytes (Manual) 0.18 Platelet Estimate Adequate Hypochromasia 1+ Anisocytosis 1+ Schistocytes None seen PT 17.8 H INR 1.4 APTT 32.8 Puncture Site Right femoral ABG pH 7.194 L* ABG pCO2 32.7 L ABG pO2 244.9 H ABG PO2/FiO2 Ratio 6.80 ABG HCO3 12.3 L ABG O2 Saturation 99.4 ABG O2 Content 15.0 L ABG Base Excess -14.6 A-a Gradient < 0.0 Oxyhemoglobin 99.1 Total Hemoglobin 10.3 L O2 Delivery Device Nasal cannula O2 Liters/Min 4.0 FiO2 36 Sodium 136 L Potassium 5.1 H Chloride 103 Carbon Dioxide 19 L Anion Gap 14 H BUN 80 H D Creatinine 2.03 H Estim Creat Clear Calc Not Reportable Estimated GFR 24 L Glucose 168 H POC Capillary Glucose Lactic Acid 0.9 Calcium 9.1 Phosphorus Magnesium Total Bilirubin 1.1 AST 26 ALT 16 Alkaline Phosphatase 54 Ammonia C-Reactive Protein 8.6 H Total Protein 9.0 H Albumin 3.9 Urine Color Yellow Urine Appearance Turbid H Urine pH 5.0 Ur Specific [place] 1.014 Urine Protein 3+ H Urine Glucose (UA) 2+ H Urine Ketones Negative Ur Blood (Man) 2+ H Urine Nitrate Negative Urine Bilirubin Negative Urine Urobilinogen 0.2 Add Ur Microanalysis Reviewed Leukocyte Esterase Rfl 3+ H Urine RBC 51-100 H Urine WBC >100 H Ur Squamous Epith Cells Moderate Urine Bacteria 2+ H Urine Casts 3-5 Urine Yeast (Budding) Present H Nasal MRSA (PCR) 07/07/24 07/07/24 07/07/24 00:31 00:43 06:02 WBC 16.1 H RBC 2.89 L Hgb 8.7 L Hct 28.2 L MCV 97.6 MCH 30.1 MCHC 30.9 L RDW 15.0 H Plt Count 249 MPV 9.6 Immature Gran % (Auto) 0.3 Neut % (Auto) 87.2 H Lymph % (Auto) 7.3 L [place] % (Auto) 4.8 Eos % (Auto) 0.1 Baso % (Auto) 0.3 Lymph # (Auto) 1.18 [place] # (Auto) 0.8 H Eos # (Auto) 0.0 Baso # (Auto) 0.1 Abs Immat Gran (auto) 0.05 H Absolute Neuts (auto) 14.0 H Absolute Nucleated RBC 0.000 Total Counted Neutrophils % (Manual) Band Neutrophils % Lymphocytes % (Manual) Monocytes % (Manual) Nucleated RBC % 0.0 Abs Neuts (Manual) Abs Lymphs (Manual) Abs Monocytes (Manual) Platelet Estimate Hypochromasia Anisocytosis Schistocytes PT INR APTT Puncture Site ABG pH ABG pCO2 ABG pO2 ABG PO2/FiO2 Ratio ABG HCO3 ABG O2 Saturation ABG O2 Content ABG Base Excess A-a Gradient Oxyhemoglobin Total Hemoglobin O2 Delivery Device O2 Liters/Min FiO2 Sodium 139 Potassium 3.6 Chloride 106 Carbon Dioxide 20 L Anion Gap 13 H BUN 73 H Creatinine 1.75 H Estim Creat Clear Calc 20 Estimated GFR 29 L Glucose 320 H POC Capillary Glucose 255 H Lactic Acid Calcium 7.9 L Phosphorus 4.4 Magnesium 1.5 L Total Bilirubin 0.8 AST 24 ALT 17 Alkaline Phosphatase 50 Ammonia C-Reactive Protein Total Protein 8.0 Albumin 3.4 L Urine Color Urine Appearance Urine pH Ur Specific [place] Urine Protein Urine Glucose (UA) Urine Ketones Ur Blood (Man) Urine Nitrate Urine Bilirubin Urine Urobilinogen Add Ur Microanalysis Leukocyte Esterase Rfl Urine RBC Urine WBC Ur Squamous Epith Cells Urine Bacteria Urine Casts Urine Yeast (Budding) Nasal MRSA (PCR) Detected A* 07/07/24 07/07/24 07:29 08:51 WBC RBC Hgb Hct MCV MCH MCHC RDW Plt Count MPV Immature Gran % (Auto) Neut % (Auto) Lymph % (Auto) [place] % (Auto) Eos % (Auto) Baso % (Auto) Lymph # (Auto) [place] # (Auto) Eos # (Auto) Baso # (Auto) Abs Immat Gran (auto) Absolute Neuts (auto) Absolute Nucleated RBC Total Counted Neutrophils % (Manual) Band Neutrophils % Lymphocytes % (Manual) Monocytes % (Manual) Nucleated RBC % Abs Neuts (Manual) Abs Lymphs (Manual) Abs Monocytes (Manual) Platelet Estimate Hypochromasia Anisocytosis Schistocytes PT INR APTT Puncture Site ABG pH ABG pCO2 ABG pO2 ABG PO2/FiO2 Ratio ABG HCO3 ABG O2 Saturation ABG O2 Content ABG Base Excess A-a Gradient Oxyhemoglobin Total Hemoglobin O2 Delivery Device O2 Liters/Min FiO2 Sodium Potassium Chloride Carbon Dioxide Anion Gap BUN Creatinine Estim Creat Clear Calc Estimated GFR Glucose POC Capillary Glucose 302 H Lactic Acid Calcium Phosphorus Magnesium Total Bilirubin AST ALT Alkaline Phosphatase Ammonia < 9 L C-Reactive Protein Total Protein Albumin Urine Color Urine Appearance Urine pH Ur Specific [place] Urine Protein Urine Glucose (UA) Urine Ketones Ur Blood (Man) Urine Nitrate Urine Bilirubin Urine Urobilinogen Add Ur Microanalysis Leukocyte Esterase Rfl Urine RBC Urine WBC Ur Squamous Epith Cells Urine Bacteria Urine Casts Urine Yeast (Budding) Nasal MRSA (PCR) Quality VTE Prophylaxis VTE prophylaxis: pharmacologic ordered (Lovenox 30 mg subQ daily.)
[2024-07-07] MEDS: MAGNESIUM SULF 2 GM/WATER 50ML 2 GM/50 ML BAG IVPB (10:25)
[2024-07-07] MEDS: KCL 20 MEQ/0.45% NS 1,000 ML 75 ML IV CONT (10:25)
[2024-07-07] MEDS: CYANOCOBALAMIN 1,000 MCG TABLET 1000 MCG PO (12:01)
[2024-07-07 12:13] LABS: Glucose Point of Care 143 mg/dl (65-105)
[2024-07-07 15:17] LABS: Anion Gap 13 mmol/L (4-12); Blood Urea Nitrogen 65 mg/dL (7-17); Carbon Dioxide 20 mmol/L (22-30); Chloride 105 mmol/L (98-107); Estimated CRCL calculation 24 ml/min; Estimated Glomerular Filt Rate 32; Glucose 230 mg/dL (65-110); Potassium 3.4 mmol/L (3.4-5.0); Sodium 138 mmol/L (137-145)
[2024-07-07 16:02] LABS: Glucose Point of Care 228 mg/dl (65-105)
[2024-07-07] MEDS: POTASSIUM BICARBONATE 25 MEQ TABEF 50 MEQ PO (16:21)
[2024-07-07] MEDS: NOREPINEPHRINE 8 MG/D5W 250 ML 8 MG/250 ML BAG 24.38 MG IV CONT (16:58)
[2024-07-07] MEDS: VANCOMYCIN 1,000 MG/NS 250 ML 1,000 MG/250 ML BAG 250 MG IVPB (17:14)
[2024-07-07 19:59] LABS: Glucose Point of Care 280 mg/dl (65-105)
[2024-07-08] VITALS (31 sets, daily range): BP systolic 77–161; BP diastolic 34–116; PULSE 68–79; RESP 13–21; TEMP 36.4–38.2; O2SAT 94–100; BMI 26.6
--- NOTE | 2024-07-08 | ECHO_ITS ---
Patient Info Name: Iris Pascual Age: 69 years : 1955 Gender: Female Ht: 60 in Wt: 131 lbs BSA: 1.60 m2 HR: 74 bpm BP: 112 / 81 mmHg Technical Quality: Fair Exam Date: 07/08/2024 9:32 AM Exam Location: Echo Lab Patient Status: Inpatient Admit Date: 07/06/2024 Staff Ordering Physician: Horacio Colindres MD Aircraft Air Conditioning Mechanic: Macie Anguiano RDCS Attending Provider: Marley Jauregui DO Exam Type: CA echo dop color flow w con Study Info Indications - Pericardial effusion - Cardiomyopathy - Shock Complete two-dimensional, color flow and Doppler transthoracic echocardiogram is performed with contrast to opacify the left ventricle and to improve the deliniation of the left ventricle endocardial borders. Contrast/Agitated Saline Contrast/Ag. Saline: Definity Amount: 3.00 ml Existing IV Access: Yes IV Access Condition: patent with no signs of infiltration Summary 1. Left ventricular systolic function is normal, estimated at 25-30%. hpokinesis anterosptum. 2. Left ventricular chamber dimension is mildly enlarged. 3. The left ventricular diastolic function is grade II diastolic dysfunction. 4. Right ventricular chamber dimension is normal. 5. Right ventricular systolic function is reduced. 6. There is mild to moderate aortic valve stenosis with a peak velocity of 163.15 cm/s, mean gradient of 7 mmHg, and aortic valve area of 1.33 cm2. 7. There is mild aortic valve calcification. 8. There is mild aortic valve regurgitation. 9. There is mild mitral valve calcification. 10. There is mild tricuspid valve regurgitation. 11. Moderate pulmonary hypertension, estimated pulmonary arterial systolic pressure is 52 mmHg. 12. There is mild pulmonic regurgitation. 13. There is small pericardial effusion. Left Ventricle Left ventricular chamber dimension is mildly enlarged. Left ventricular systolic function is normal, estimated at 25-30%. hpokinesis anterosptum. There is no increased left ventricular wall thickness. Left ventricular septal wall motion is normal. The left ventricular diastolic function is grade II diastolic dysfunction. Right Ventricle Right ventricular chamber dimension is normal. Right ventricular systolic function is reduced. Left Atria Left atrial chamber dimension is normal. Right Atria Right atrial chamber dimension is normal. Aortic Valve The aortic valve is probable trileaflet. There is no aortic valve sclerosis. There is mild to moderate aortic valve stenosis with a peak velocity of 163.15 cm/s, mean gradient of 7 mmHg, and aortic valve area of 1.33 cm2. There is mild aortic valve regurgitation. There is mild aortic valve calcification. Pulmonic Valve The pulmonic valve is normal. There is no pulmonic valve stenosis. There is mild pulmonic regurgitation. Mitral Valve The mitral valve has normal leaflets. There is no mitral valve stenosis. There is no mitral valve regurgitation. There is mild mitral valve calcification. Tricuspid Valve The tricuspid valve leaflets are normal. There is no significant tricuspid valve stenosis. There is mild tricuspid valve regurgitation. Moderate pulmonary hypertension, estimated pulmonary arterial systolic pressure is 52 mmHg. Pericardium/Pleural The pericardium appears normal. There is small pericardial effusion. Inferior Vena Cava Normal inferior vena cava with >50% collapse upon inspiration consistent with Empty right atrial pressure, 10 mmHg. Aorta The aortic root size at the sinus of Valsalva is normal. The prox ascending aorta size is normal. Left Ventricular Outflow Tract Name Value Normal LVOT 2D LVOT Diameter 1.87 cm LVOT Doppler LVOT Peak Gradient 2 mmHg LVOT Mean Gradient 1 mmHg LVOT VTI 19.36 cm LVOT VTI/AV VTI Ratio 0.49 LVOT Stroke Volume 52.85 ml LVOT CO 9.58 l/min LVOT CI 5.98 L/min/m2 Pulmonic Valve Name Value Normal PV Doppler PV Peak Gradient 2 mmHg Mitral Valve Name Value Normal MV Doppler MV Decel [place] 815.52 cm/s2 MV PHT 0 s MV Area (PHT) 4.95 cm2 4.00-5.00 MV Diastolic Function MV E Peak Velocity 125.08 cm/s MV A Peak Velocity 75.23 cm/s MV E/A 1.66 MV Decel Time 0 s MV Annular TDI MV E/e' (Septal) 37.13 <=8.00 MV E/e' (Lateral) 18.02 <=8.00 MV E/e' (Average) 27.58 Tricuspid Valve Name Value Normal TV Regurgitation Doppler TR Peak Velocity 325.41 cm/s TR Peak Gradient 42 mmHg Estimated PAP/RSVP RA Pressure 10 mmHg <=5 PA Systolic Pressure 52 mmHg <36 RV Systolic Pressure 52 mmHg <36 Aorta Name Value Normal Ascending Aorta Ao Root Diameter (MM) 2.38 cm Ao Root Diam Index (MM) 1.49 cm/m2 Aortic Valve Name Value Normal AV Doppler AV Peak Velocity 163.15 cm/s AV Peak Gradient 11 mmHg AV Mean Gradient 7 mmHg AV VTI 39.68 cm AV Area (Cont Eq VTI) 1.33 cm2 >=3.00 AV Area (Cont Eq Jesus) 1.29 cm2 AV Regurgitation 2D LVOT Area 2.73 cm2 Ventricles Name Value Normal LV Dimensions 2D/MM IVS Diastolic Thickness (2D) 0.79 cm 0.60-1.00 LVID Diastole (2D) 4.81 cm 3.80-5.20 LVIW Diastolic Thickness (2D) 0.91 cm 0.60-0.90 LVID Systole (2D) 4.24 cm 2.20-3.50 LVOT Diameter 1.87 cm LV Mass (2D Cubed) 138.21 g 67.00-162.00 LV Mass Index (2D Cubed) 0.01 g/cm2 0.00-0.01 Relative Wall Thickness (2D) 0.38 LV Fractional Shortening/Ejection Fraction 2D/MM LV Fractional Shortening (2D) 12 % 27-45 LV EF (2D Teicholz) 26 % 54-74 LV Diastolic Volume (4C MOD) 109.59 ml LV EF (4C MOD) 31 % LV Diastolic Volume (2C MOD) 80.88 ml LV EF (2C MOD) 33 % LV Diastolic Volume (BP MOD) 95.79 ml 46.00-106.00 LV Diastolic Volume Index (BP MOD) 0.06 l/m2 0.03-0.06 LV Systolic Volume (BP MOD) 66.54 ml 14.00-42.00 LV Systolic Volume Index (BP MOD) 0.04 l/m2 0.01-0.02 LV EF (BP MOD) 31 % 54-74 LV Diastolic Length (4C) 8.02 cm LV Systolic Length (4C) 7.80 cm LV Stroke Volume (4C MOD) 33.80 ml RV Dimensions 2D/MM RVID Diastole (2D) 3.80 cm 2.50-3.50 Atria Name Value Normal LA Dimensions LA Dimension (MM) 3.05 cm 2.70-3.80 LA Volume (4C A-L) 70.58 ml LA Volume (BP A-L) 79.67 ml RA Dimensions RA Area (4C) 22.22 cm2 <=18.00 Report Signatures
[2024-07-08 00:08] LABS: Glucose Point of Care 127 mg/dl (65-105)
[2024-07-08] MEDS: KCL 20 MEQ/0.45% NS 1,000 ML 75 ML IV CONT (00:20)
[2024-07-08] MEDS: VANCOMYCIN HCL 125 MG ORAL CAPSULE PO ×5 (00:20→23:39)
[2024-07-08 04:53] LABS: Hematocrit 25.4 % (37.0-47.0); Hemoglobin 7.8 g/dL (12.0-15.0); Mean Corpuscular HGB Conc 30.7 g/dl (32-36); Mean Corpuscular Hemoglobin 30.1 pg (26-34); Mean Corpuscular Volume 98.1 fl (80-100); Mean Platelet Volume 9.7 fl (7.4-10.4); Platelet Count Result 203 k/mm3 (150-375); Red Blood Count 2.59 M/mm3 (4.2-5.4); Red Cell Distribution Width 15.3 % (11.5-14.5); White Blood Count 9.2 K/mm3 (4.5-10.0)
[2024-07-08 05:04] LABS: Alanine Aminotransferase 14 U/L (6-35); Albumin Level 3.2 g/dL (3.5-5.1); Alkaline Phosphatase 44 U/L (38-126); Anion Gap 11 mmol/L (4-12); Aspartate Amino Transferase 22 U/L (14-36); Bilirubin,Total 0.6 mg/dL (0.2-1.3); Blood Urea Nitrogen 58 mg/dL (7-17); Calcium 7.6 mg/dL (8.4-10.2); Carbon Dioxide 22 mmol/L (22-30); Chloride 104 mmol/L (98-107); Estimated CRCL calculation 30 ml/min; Estimated Glomerular Filt Rate 41; Glucose 142 mg/dL (65-110); Phosphorus 3.1 mg/dL (2.5-4.5); Potassium 4.4 mmol/L (3.4-5.0); Sodium 137 mmol/L (137-145)
[2024-07-08 05:09] LABS: Estimated CRCL calculation 27 ml/min; Estimated Glomerular Filt Rate 36
[2024-07-08] MEDS: LEVOTHYROXINE SODIUM 100 MCG TABLET PO (05:40)
[2024-07-08] MEDS: CENTRAL LINE FLUSH 10 ML IV PUSH ×3 (05:41→20:45)
[2024-07-08 07:32] LABS: Glucose Point of Care 131 mg/dl (65-105)
[2024-07-08] MEDS: MEROPENEM 1 GM/NS 100 ML 1 GM/100 ML BAG IVPB (08:34)
[2024-07-08] MEDS: PANTOPRAZOLE SODIUM IV 40 MG VIAL IV PUSH (08:35)
[2024-07-08] MEDS: CALCIUM GLUC 2,000 MG/NS 100ML 2,000 MG/100 ML BAG 100 MG IVPB (08:35)
[2024-07-08] MEDS: CYANOCOBALAMIN 1,000 MCG TABLET 1000 MCG PO (08:35)
[2024-07-08] MEDS: ENOXAPARIN 30 MG/0.3 ML SYRINGE SUB-Q (08:35)
[2024-07-08] MEDS: MUPIROCIN 2% OINT 22 GM TUBE 1 APPLIC EACH NARE ×2 (08:36→20:45)
--- NOTE | 2024-07-08 08:37 | P.PNINT_ITS ---
Progress Note: A&P Assessment and Plan (1) Septic shock: Code(s): A41.9 - Sepsis, unspecified organism; R65.21 - Severe sepsis with septic shock Status: Acute Assessment and Plan: Septic shock secondary to UTI. Patient has a chronic indwelling urinary catheter. Patient also has a history of ESBL. UA is also showing yeast and patient does have history yeast in her urine Hemodynamics have improved and Levophed weaned off. Will hold further crystalloids. Continue albumin for another [address] scan does not show any stone or obstruction. Kaplan has been changed Urine culture pending. Blood culture growing Streptococcus and Acinetobacter baumannii Continue fluconazole Change vancomycin and meropenem to Unasyn and minocycline as per recommendation of ID pharmacist (2) Combined systolic and diastolic congestive heart failure: Qualifiers: Heart failure chronicity: acute on chronic Qualified Code(s): I50.43 - Acute on chronic combined systolic (congestive) and diastolic (congestive) heart failure Code(s): I50.40 - Unspecified combined systolic (congestive) and diastolic (congestive) heart failure Status: Acute Assessment and Plan: Continue to hold meds at this time due to concern septic shock. Obtain echocardiogram to assess cardiac function and pericardial effusion (3) Type 2 diabetes mellitus: Code(s): E11.9 - Type 2 diabetes mellitus without complications Status: Acute Assessment and Plan: Sliding scale insulin Diet ordered (4) Diarrhea: Code(s): R19.7 - Diarrhea, unspecified Status: Acute Assessment and Plan: Patient has chronic constipation and also has diarrhea. Patient was recently diagnosed with C diff associated diarrhea Continue p.o. vancomycin as patient has been started on IV antibiotic Laxatives have been changed to p.r.n. as patient is now having multiple liquid bowel movement (5) ABDIRASHID (acute kidney injury): Code(s): N17.9 - Acute kidney failure, unspecified Status: Acute Assessment and Plan: Patient has chronic kidney disease with creatinine 1.2-1.4 Presented with creatinine of 2.1 likely secondary to septic shock CT scan does not show any stone or obstruction Monitor urine output electrolytes and creatinine Creatinine improving and now at 1.28. Will hold further crystalloids Continue albumin for another 24 hours Levophed weaned off (6) Catheter-associated urinary tract infection: Qualifiers: Encounter type: initial encounter Indwelling urinary catheter type: indwelling urethral catheter Qualified Code(s): T83.511A - Infection and inflammatory reaction due to indwelling urethral catheter, initial encounter; N39.0 - Urinary tract infection, site not specified Code(s): T83.511A - Infection and inflammatory reaction due to indwelling urethral catheter, initial encounter; N39.0 - Urinary tract infection, site not specified Status: Acute Assessment and Plan: See above Catheter was changed the ER (7) C. difficile diarrhea: Onset Date: 01/2024 Code(s): A04.72 - Enterocolitis due to Clostridium difficile, not specified as recurrent Status: Acute Assessment and Plan: See above (8) Acute metabolic encephalopathy: Code(s): G93.41 - Metabolic encephalopathy Status: Acute Assessment and Plan: Exam as above and significantly improved Acute metabolic encephalopathy likely secondary to septic shocks and medications Normal TSH and ammonia level Head CT reviewed Continue to Hold gabapentin and other sedative (9) Abnormal breast finding: Code(s): N64.59 - Other signs and symptoms in breast Status: Acute Assessment and Plan: Patient has a right anterior chest wall seroma versus breast implant on the CT scan. This is a known finding and was evaluated in January of 2024 by general surgery and was found to be not causing issues hence no further treatment was recommended. (10) Metabolic acidosis: Code(s): E87.20 - Acidosis, unspecified Status: Acute Assessment and Plan: Improved with IV fluids with bicarb. Off bicarb (11) Electrolyte abnormality: Code(s): E87.8 - Other disorders of electrolyte and fluid balance, not elsewhere classified Status: Acute Assessment and Plan: Improved after replacement potassium and magnesium Plan DVT prophylaxis -Lovenox Stress ulcer prophylaxis -PPI Nutrition -diet ordered Code Status -patient is DNR DNI as per her advance directive from group home Total Critical Care Time - 30 minutes Due to a high probability of clinically significant, life threatening deterioration, the patient required my highest level of preparedness to intervene emergently and I personally spent this critical care time directly and personally managing the patient. This critical care time included obtaining a history; examining the patient; pulse oximetry; ordering and review of studies; arranging urgent treatment with development of a management plan; evaluation of patient's response to treatment; frequent reassessment; and discussions with other providers. It was exclusive of separately billable procedures and treating other patients and teaching time. Please see Assessment and Plan section and the rest of the note for further information on patient assessment and treatment Subjective Date/time seen: 07/08/24 Overnight events reviewed. febrile overnight On room air Levophed weaned off at 6:30 a.m. this morning Mental status improved and patient is now much more awake alert and answering questions. She is also able to eat p.o. diet. Urine output has improved Patient denies fever, chest pain, shortness of breath, cough, nausea vomiting, abdominal pain,, diarrhea, headache or constipation. All other systems were reviewed and were negative Review of Systems Review of Systems: All systems reviewed & are unremarkable except as noted in HPI and below (Subjective) Exam Narrative: General: Pt is awake alert and no distress Lungs/Chest: Trachea central Clear BS B/L, No crackles or wheezing. Cardiac: RRR. Normal S1 S2. No murmurs Circulation: Bilateral AKA Abdomen: Normal bowel sounds. Obese. Soft. NT. ND. Extremities: bilateral AKA : Kaplan in place Neurologic: Alert awake, A/O x3, followed commands with both upper extremity, facial asymmetry, PERRL Skin: Sacral maceration Objective Data Vital Signs Vital Signs: Vital Signs - 24 hr 07/07/24 10:00 07/07/24 10:00 07/07/24 10:00 Temperature 36.4 C Pulse Rate 73 71 73 Respiratory Rate 18 Blood Pressure 112/57 L 112/57 L Pulse Oximetry 98 Oxygen Delivery 07/07/24 11:54 07/07/24 12:00 07/07/24 12:00 Temperature Pulse Rate 67 75 76 Respiratory Rate Blood Pressure 100/41 L 100/75 Pulse Oximetry Oxygen Delivery 07/07/24 12:00 07/07/24 12:00 07/07/24 12:15 Temperature 36.4 C L Pulse Rate 76 77 Respiratory Rate 18 Blood Pressure 88/69 L 88/69 L Pulse Oximetry 98 99 Oxygen Delivery Room Air 07/07/24 12:22 07/07/24 13:34 07/07/24 13:40 Temperature Pulse Rate 75 71 73 Respiratory Rate Blood Pressure 104/48 L 92/36 L 91/37 L Pulse Oximetry Oxygen Delivery 07/07/24 13:45 07/07/24 13:50 07/07/24 14:00 Temperature Pulse Rate 74 75 76 Respiratory Rate Blood Pressure 99/49 L 110/42 L 113/51 L Pulse Oximetry Oxygen Delivery 07/07/24 14:00 07/07/24 14:00 07/07/24 15:00 Temperature 36.5 C Pulse Rate 75 75 75 Respiratory Rate 15 Blood Pressure 113/51 L 135/35 L Pulse Oximetry 97 Oxygen Delivery 07/07/24 16:00 07/07/24 16:00 07/07/24 16:00 Temperature 36.9 C Pulse Rate 80 79 79 Respiratory Rate 16 Blood Pressure 112/53 L 112/53 L Pulse Oximetry 97 Oxygen Delivery 07/07/24 16:00 07/07/24 16:15 07/07/24 16:20 Temperature Pulse Rate 84 82 Respiratory Rate Blood Pressure 124/44 L 97/55 L Pulse Oximetry 98 Oxygen Delivery Room Air 07/07/24 16:58 07/07/24 16:58 07/07/24 18:00 Temperature Pulse Rate 83 83 83 Respiratory Rate Blood Pressure 99/57 L 99/57 L 83/62 L Pulse Oximetry Oxygen Delivery 07/07/24 18:00 07/07/24 18:00 07/07/24 18:45 Temperature 37.3 C Pulse Rate 83 83 85 Respiratory Rate 22 H Blood Pressure 83/62 L 118/80 Pulse Oximetry 99 Oxygen Delivery 07/07/24 19:00 07/07/24 20:00 07/07/24 20:00 Temperature 37.8 C H Pulse Rate 86 84 85 Respiratory Rate 20 Blood Pressure 107/55 L 90/60 L 90/60 L Pulse Oximetry 98 Oxygen Delivery 07/07/24 20:00 07/07/24 20:00 07/07/24 20:15 Temperature Pulse Rate 85 85 Respiratory Rate Blood Pressure 106/48 L Pulse Oximetry 98 Oxygen Delivery Room Air 07/07/24 20:30 07/07/24 22:00 07/07/24 22:00 Temperature 38.1 C H Pulse Rate 84 81 81 Respiratory Rate 20 Blood Pressure 103/56 L 119/53 L Pulse Oximetry 98 Oxygen Delivery 07/07/24 22:00 07/07/24 22:15 07/07/24 22:30 Temperature 38.1 C H Pulse Rate 81 81 81 Respiratory Rate 19 Blood Pressure 109/53 L 119/53 L 139/66 Pulse Oximetry 100 Oxygen Delivery 07/07/24 22:45 07/07/24 23:44 07/08/24 00:00 Temperature Pulse Rate 79 79 Respiratory Rate Blood Pressure 108/57 L Pulse Oximetry Oxygen Delivery Room Air 07/08/24 00:00 07/08/24 00:15 07/08/24 01:15 Temperature 38.2 C H Pulse Rate 77 78 75 Respiratory Rate 20 Blood Pressure 114/46 L 95/53 L 116/103 H Pulse Oximetry 96 Oxygen Delivery 07/08/24 01:30 07/08/24 01:45 07/08/24 02:00 Temperature Pulse Rate 77 76 77 Respiratory Rate Blood Pressure 82/45 L 116/42 L 100/88 Pulse Oximetry Oxygen Delivery 07/08/24 02:00 07/08/24 02:00 07/08/24 02:15 Temperature 38.2 C H Pulse Rate 77 77 77 Respiratory Rate 18 Blood Pressure 100/88 89/66 L Pulse Oximetry 97 Oxygen Delivery 07/08/24 03:15 07/08/24 03:30 07/08/24 03:45 Temperature Pulse Rate 76 78 76 Respiratory Rate Blood Pressure 120/46 L 128/104 H 124/104 H Pulse Oximetry Oxygen Delivery 07/08/24 04:00 07/08/24 04:00 07/08/24 04:00 Temperature Pulse Rate 75 76 Respiratory Rate Blood Pressure 110/65 Pulse Oximetry Oxygen Delivery Room Air 07/08/24 04:00 07/08/24 04:15 07/08/24 05:00 Temperature 38.0 C H Pulse Rate 74 77 76 Respiratory Rate 20 Blood Pressure 110/65 104/45 L 133/75 Pulse Oximetry 97 Oxygen Delivery 07/08/24 05:15 07/08/24 05:30 07/08/24 05:45 Temperature Pulse Rate 75 77 77 Respiratory Rate Blood Pressure 77/58 L 81/59 L 102/68 Pulse Oximetry Oxygen Delivery 07/08/24 06:00 07/08/24 06:00 07/08/24 06:00 Temperature 37.7 C H Pulse Rate 76 76 75 Respiratory Rate 18 Blood Pressure 112/81 112/81 Pulse Oximetry 99 Oxygen Delivery 07/08/24 06:20 07/08/24 06:30 07/08/24 06:45 Temperature Pulse Rate 75 73 74 Respiratory Rate Blood Pressure 100/69 113/85 123/56 L Pulse Oximetry Oxygen Delivery 07/08/24 07:00 07/08/24 08:00 Temperature 37.1 C Pulse Rate 74 73 Respiratory Rate 13 Blood Pressure 102/45 L 99/48 L Pulse Oximetry 100 Oxygen Delivery Intake/Output Intake/Output: Intake & Output 07/05/24 07/06/24 07/07/24 07/08/24 23:59 23:59 23:59 23:59 Intake Total 3029.4 2571.1 1286.6 Output Total 1325 850 Balance 3029.4 1246.1 436.6 Meds/Results Medications: Active Medications Generic Name Dose Route Start Last Admin Trade Name Freq PRN Reason Stop Dose Admin Acetaminophen 650 mg 07/06/24 21:49 Acetaminophen 650 Mg Suppository RECTAL Q6H PRN Mild Pain (1-3) or Fever Bisacodyl 10 mg 07/07/24 09:00 07/07/24 08:38 Bisacodyl 10 Mg Suppository RECTAL 10 mg DAILY KASIE Administration Cyanocobalamin 1,000 mcg 07/07/24 09:00 07/08/24 08:35 Cyanocobalamin 1,000 Mcg Tablet PO 1,000 mcg DAILY KASIE Administration Dextrose 12.5 gm 07/06/24 23:43 Dextrose 50% 25 Gm/50 Ml Syringe IV PUSH PRN PRN Hypoglycemia Protocol Enoxaparin Sodium 30 mg 07/07/24 09:00 07/08/24 08:35 Enoxaparin 30 Mg/0.3 Ml Syringe SUB-Q 30 mg DAILY KASIE Administration Glucagon 1 mg 07/06/24 23:43 Glucagon For Inj 1 Mg Vial IM PRN PRN Hypoglycemia Protocol Glucose 15 gm 07/06/24 23:43 Glucose Oral Gel 15 Gm Of Glucse In 37.5 Gm Tube PO PRN PRN Hypoglycemia Protocol Dextrose 1,000 mls @ 100 mls/hr 07/06/24 23:43 Dextrose 5% 1,000 Ml IVPB PRN PRN Hypoglycemia Protocol Norepinephrine Bitartrate 8 mg in 250 mls @ 0 mls/hr 07/07/24 02:55 07/08/24 07:00 Levophed 8 Mg/D5w 250 Ml IV CONT 0 mcg/min .Q0M KASIE 0 mls/hr Titration Protocol Fluconazole 200 mg in 100 mls @ 100 mls/hr 07/07/24 09:00 07/07/24 09:40 Diflucan 200 Mg/Nacl 100 Ml IVPB 07/21/24 08:59 Infused DAILY KASIE Infusion Meropenem 1 gm in 100 mls @ 200 mls/hr 07/08/24 08:30 07/08/24 08:34 IVPB 200 mls/hr Q12HR KASIE Administration Calcium Gluconate 2,000 mg in 100 mls @ 100 mls/hr 07/08/24 08:10 07/08/24 08:35 Calcium Gluc 2,000 Mg/Ns 100ml IVPB 07/08/24 09:09 100 mls/hr ONCE ONE Administration Albumin Human 100 mls @ 60 mls/hr 07/08/24 12:00 Albutein IVPB 07/09/24 07:39 Q6HR KASIE Insulin Aspart 2 - 5 units 07/07/24 09:00 07/08/24 07:58 Insulin Aspart (*Bkc) 100 Units/Ml SUB-Q Not Given Q4HR KASIE Protocol Levothyroxine Sodium 100 mcg 07/07/24 06:30 07/08/24 05:40 Levothyroxine Sodium 100 Mcg Tablet PO 100 mcg DAILY@0630 KASIE Administration Mupirocin 1 applic 07/07/24 09:00 07/08/24 08:36 Mupirocin 2% Oint 22 Gm Tube EACH NARE 07/11/24 21:01 1 applic Q12HR KASIE Administration Pantoprazole Sodium 40 mg 07/07/24 09:00 07/08/24 08:35 Pantoprazole Sodium Iv 40 Mg Vial IV PUSH 40 mg QAM KASIE Administration Perflutren Lipid Microsphere 0 ml 07/07/24 08:05 Perflutren Lipid Microspheres 1.5 Ml Vial Diluted To 10 Ml Total Volume IV PUSH 07/10/24 08:05 ONCE PRN adequate visualization Protocol Sodium Chloride 10 ml 07/06/24 22:00 07/08/24 05:41 Central Line Flush IV PUSH 10 ml Q8HR KASIE Administration Sodium Chloride 20 ml 07/06/24 19:24 Central Line Flush IV PUSH PRN PRN after blood draws Tramadol HCl 50 mg 07/06/24 23:29 Tramadol Hcl (*Crx) 50 Mg Tablet PO Q8H PRN pain 4-10 Vancomycin HCl 125 mg 07/07/24 00:00 07/08/24 05:40 Vancomycin Hcl 125 Mg Oral Capsule PO 07/17/24 00:00 125 mg Q6HR KASIE Administration Vancomycin HCl 1 each 07/07/24 16:58 Vancomycin For Acute Kidney Injury IVPB PRN PRN Vancomycin Protocol Radiology Results: ITS Impressions Chest X-Ray 07/06/24 18:54 IMPRESSION: Bilateral perihilar pneumonia. The left central line tip is noted at the junction of the superior vena cava and left brachiocephalic vein. Head CT 07/06/24 19:40 IMPRESSION: No acute intracranial findings. Chest/Abdomen/Pelvis CT 07/06/24 21:16 IMPRESSION: CHEST: 1. Cardiomegaly with pericardial effusion. 2. No evidence of pneumonia or pneumothorax. 3. Right anterior chest wall seroma versus breast implant. ABDOMEN/PELVIS: 1. No evidence of appendicitis, diverticulitis or intestinal obstruction. 2. Thickened wall of the rectum which may indicate proctitis. Clinical correlation advised. 3. Air seen in the left pelvicalyceal system with hydronephrotic changes. Infection cannot be excluded. Further evaluation advised. 4. Seen in the area bladder with Kaplan's catheter. 5. Seroma in the anterior abdominal wall with wall calcification. Labs Labs: Laboratory Results - last 24 hr 07/07/24 07/07/24 07/07/24 08:51 11:57 14:59 WBC RBC Hgb Hct MCV MCH MCHC RDW Plt Count MPV Sodium 138 Potassium 3.4 Chloride 105 Carbon Dioxide 20 L Anion Gap 13 H BUN 65 H Creatinine 1.61 H Estim Creat Clear Calc 24 Estimated GFR 32 L Glucose 230 H POC Capillary Glucose 143 H Calcium 8.0 L Phosphorus Magnesium Total Bilirubin AST ALT Alkaline Phosphatase Ammonia < 9 L Total Protein Albumin TSH (Reflex) 1.560 07/07/24 07/07/24 07/08/24 15:58 19:57 00:05 WBC RBC Hgb Hct MCV MCH MCHC RDW Plt Count MPV Sodium Potassium Chloride Carbon Dioxide Anion Gap BUN Creatinine Estim Creat Clear Calc Estimated GFR Glucose POC Capillary Glucose 228 H 280 H 127 H Calcium Phosphorus Magnesium Total Bilirubin AST ALT Alkaline Phosphatase Ammonia Total Protein Albumin TSH (Reflex) 07/08/24 07/08/24 07/08/24 04:24 04:24 04:24 WBC 9.2 RBC 2.59 L Hgb 7.8 L Hct 25.4 L MCV 98.1 MCH 30.1 MCHC 30.7 L RDW 15.3 H Plt Count 203 MPV 9.7 Sodium 137 Potassium 4.4 Chloride 104 Carbon Dioxide 22 Anion Gap 11 BUN 58 H Creatinine 1.44 H 1.28 H Estim Creat Clear Calc 27 30 Estimated GFR 36 L Glucose POC Capillary Glucose Calcium Phosphorus Magnesium Total Bilirubin AST ALT Alkaline Phosphatase Ammonia Total Protein Albumin TSH (Reflex) 07/08/24 07/08/24 04:24 07:29 WBC RBC Hgb Hct MCV MCH MCHC RDW Plt Count MPV Sodium Potassium Chloride Carbon Dioxide Anion Gap BUN Creatinine Estim Creat Clear Calc Estimated GFR 41 L Glucose 142 H POC Capillary Glucose 131 H Calcium 7.6 L Phosphorus 3.1 Magnesium 2.0 Total Bilirubin 0.6 AST 22 ALT 14 Alkaline Phosphatase 44 Ammonia Total Protein 7.0 Albumin 3.2 L TSH (Reflex) Quality VTE Prophylaxis VTE prophylaxis: pharmacologic ordered (Lovenox 30 mg subQ daily.)
[2024-07-08] MEDS: PERFLUTREN LIPID MICROSPHERES 1.5 ML VIAL DILUTED TO 10 ML TOTAL VOLUME IV PUSH (09:45)
[2024-07-08] MEDS: FLUCONAZOLE 200 MG/NACL 100 ML 200 MG/100 ML BAG 100 MG IVPB (09:50)
--- NOTE | 2024-07-08 09:50 | P.PNIM_ITS ---
Progress Note: A&P Assessment and Plan (1) Acute metabolic encephalopathy: Code(s): G93.41 - Metabolic encephalopathy Status: Acute (2) Septic shock: Code(s): A41.9 - Sepsis, unspecified organism; R65.21 - Severe sepsis with septic shock Status: Acute (3) Catheter-associated urinary tract infection: Qualifiers: Indwelling urinary catheter type: indwelling urethral catheter Encounter type: initial encounter Qualified Code(s): T83.511A - Infection and inflammatory reaction due to indwelling urethral catheter, initial encounter; N39.0 - Urinary tract infection, site not specified Code(s): T83.511A - Infection and inflammatory reaction due to indwelling urethral catheter, initial encounter; N39.0 - Urinary tract infection, site not specified Status: Acute Plan Septic shock Complicated UTI Bacteremia Code(s): A41.9 - Sepsis, unspecified organism; R65.21 - Severe sepsis with septic shock Status: Acute Assessment and Plan: Septic shock secondary to UTI. Patient has a chronic indwelling urinary catheter. Patient also has a history of ESBL. UA is also showing yeast and patient does have history yeast in her urine Patient received norepinephrine and fluid resuscitation and abdomen Kaplan has been changed Continue IV meropenem, vancomycin and fluconazole Urine culture pending. Blood culture growing Gram-positive cocci in chains Repeat blood culture 07/08 (2) Combined systolic and diastolic congestive heart failure: Qualifiers: Heart failure chronicity: acute on chronic Qualified Code(s): I50.43 - Acute on chronic combined systolic (congestive) and diastolic (congestive) heart failure Code(s): I50.40 - Unspecified combined systolic (congestive) and diastolic (congestive) heart failure Status: Acute Assessment and Plan: Continue to hold meds at this time due to concern septic shock. Pending echocardiogram to assess cardiac function and pericardial effusion (3) Type 2 diabetes mellitus: Code(s): E11.9 - Type 2 diabetes mellitus without complications Status: Acute Assessment and Plan: Sliding scale insulin Diet ordered (4) Diarrhea: Code(s): R19.7 - Diarrhea, unspecified Status: Acute Assessment and Plan: Patient has chronic constipation and also has diarrhea. Patient was recently diagnosed with C diff associated diarrhea Continue p.o. vancomycin as patient has been started on IV antibiotic patient is now having multiple liquid bowel movement (5) ABDIRASHID (acute kidney injury): Code(s): N17.9 - Acute kidney failure, unspecified Status: Acute Assessment and Plan: Patient has chronic kidney disease with creatinine 1.2-1.4 Presented with creatinine of 2.1 likely secondary to septic shock CT scan does not show any stone or obstruction Monitor urine output electrolytes and creatinine Levophed weaned off Creatinine is trending down (6) Catheter-associated urinary tract infection: Qualifiers: Indwelling urinary catheter type: indwelling urethral catheter Encounter type: initial encounter Qualified Code(s): T83.511A - Infection and inflammatory reaction due to indwelling urethral catheter, initial encounter; N39.0 - Urinary tract infection, site not specified Code(s): T83.511A - Infection and inflammatory reaction due to indwelling urethral catheter, initial encounter; N39.0 - Urinary tract infection, site not specified Status: Acute Assessment and Plan: See above Catheter was changed the ER (7) C. difficile diarrhea: Onset Date: 01/2024 Code(s): A04.72 - Enterocolitis due to Clostridium difficile, not specified as recurrent Status: Acute Assessment and Plan: See above (8) Acute metabolic encephalopathy: Code(s): G93.41 - Metabolic encephalopathy Status: Acute Assessment and Plan: Exam as above and significantly improved Acute metabolic encephalopathy likely secondary to septic shocks and medications Normal TSH and ammonia level Head CT reviewed Continue to Hold gabapentin and other sedative (9) Abnormal breast finding: Code(s): N64.59 - Other signs and symptoms in breast Status: Acute Assessment and Plan: Patient has a right anterior chest wall seroma versus breast implant on the CT scan. This is a known finding and was evaluated in January of 2024 by general surgery and was found to be not causing issues hence no further treatment was recommended. (10) Metabolic acidosis: Code(s): E87.20 - Acidosis, unspecified Status: Acute Assessment and Plan: Corrected. Off bicarb (11) Electrolyte abnormality: Code(s): E87.8 - Other disorders of electrolyte and fluid balance, not elsewhere classified Status: Acute Assessment and Plan: Improved after replacement potassium and magnesium Plan DVT prophylaxis -Lovenox Stress ulcer prophylaxis -PPI Nutrition -diet ordered Code Status -patient is DNR DNI as per her advance directive from detention Subjective Date/time seen: 07/08/24 09:50 Interval history: I saw exam patient today, patient is alert oriented, has no complaints, except general weakness Blood pressure soft, off epinephrine, afebrile, pulse ox 100% room air, Labs reviewed, Leukocytosis resolved, creatinine is improving Exam Narrative: GENERAL: Ill-appearing in no acute distress. Well-nourished. - EYES: EOMI. Anicteric. - HENT: Moist mucous membranes. - LUNGS: Clear to auscultation bilateral ly, no wheezing, rhonchi, or rales. - CARDIOVASCULAR: Regular rate and rhyth m. No murmur. No JVD. - ABDOMEN: Soft, non-tender and non-dist ended. No palpable masses. - EXTREMITIES: No edema. Bilateral abov e knee amputation - NEUROLOGIC: No focal neurological defi cits. CN II-XII grossly intact. - PSYCHIATRIC: Awake, Alert and oriented x 3. Appropriate mood and affect. - SKIN: Sacral decubital ulcer stage II - LYMPH: No cervical lymphadenopathy. Objective Data Vital Signs Vital Signs: Vital Signs - 24 hr 07/07/24 10:00 07/07/24 10:00 07/07/24 10:00 Temperature 97.6 F Pulse Rate 73 71 73 Respiratory Rate 18 Blood Pressure 112/57 L 112/57 L Pulse Oximetry 98 Oxygen Delivery 07/07/24 11:54 07/07/24 12:00 07/07/24 12:00 Temperature Pulse Rate 67 75 76 Respiratory Rate Blood Pressure 100/41 L 100/75 Pulse Oximetry Oxygen Delivery 07/07/24 12:00 07/07/24 12:00 07/07/24 12:15 Temperature 97.5 F L Pulse Rate 76 77 Respiratory Rate 18 Blood Pressure 88/69 L 88/69 L Pulse Oximetry 98 99 Oxygen Delivery Room Air 07/07/24 12:22 07/07/24 13:34 07/07/24 13:40 Temperature Pulse Rate 75 71 73 Respiratory Rate Blood Pressure 104/48 L 92/36 L 91/37 L Pulse Oximetry Oxygen Delivery 07/07/24 13:45 07/07/24 13:50 07/07/24 14:00 Temperature Pulse Rate 74 75 76 Respiratory Rate Blood Pressure 99/49 L 110/42 L 113/51 L Pulse Oximetry Oxygen Delivery 07/07/24 14:00 07/07/24 14:00 07/07/24 15:00 Temperature 97.7 F Pulse Rate 75 75 75 Respiratory Rate 15 Blood Pressure 113/51 L 135/35 L Pulse Oximetry 97 Oxygen Delivery 07/07/24 16:00 07/07/24 16:00 07/07/24 16:00 Temperature 98.5 F Pulse Rate 80 79 79 Respiratory Rate 16 Blood Pressure 112/53 L 112/53 L Pulse Oximetry 97 Oxygen Delivery 07/07/24 16:00 07/07/24 16:15 07/07/24 16:20 Temperature Pulse Rate 84 82 Respiratory Rate Blood Pressure 124/44 L 97/55 L Pulse Oximetry 98 Oxygen Delivery Room Air 07/07/24 16:58 07/07/24 16:58 07/07/24 18:00 Temperature Pulse Rate 83 83 83 Respiratory Rate Blood Pressure 99/57 L 99/57 L 83/62 L Pulse Oximetry Oxygen Delivery 07/07/24 18:00 07/07/24 18:00 07/07/24 18:45 Temperature 99.1 F Pulse Rate 83 83 85 Respiratory Rate 22 H Blood Pressure 83/62 L 118/80 Pulse Oximetry 99 Oxygen Delivery 07/07/24 19:00 07/07/24 20:00 07/07/24 20:00 Temperature 100.1 F H Pulse Rate 86 84 85 Respiratory Rate 20 Blood Pressure 107/55 L 90/60 L 90/60 L Pulse Oximetry 98 Oxygen Delivery 07/07/24 20:00 07/07/24 20:00 07/07/24 20:15 Temperature Pulse Rate 85 85 Respiratory Rate Blood Pressure 106/48 L Pulse Oximetry 98 Oxygen Delivery Room Air 07/07/24 20:30 07/07/24 22:00 07/07/24 22:00 Temperature 100.6 F H Pulse Rate 84 81 81 Respiratory Rate 20 Blood Pressure 103/56 L 119/53 L Pulse Oximetry 98 Oxygen Delivery 07/07/24 22:00 07/07/24 22:15 07/07/24 22:30 Temperature 100.5 F H Pulse Rate 81 81 81 Respiratory Rate 19 Blood Pressure 109/53 L 119/53 L 139/66 Pulse Oximetry 100 Oxygen Delivery 07/07/24 22:45 07/07/24 23:44 07/08/24 00:00 Temperature Pulse Rate 79 79 Respiratory Rate Blood Pressure 108/57 L Pulse Oximetry Oxygen Delivery Room Air 07/08/24 00:00 07/08/24 00:15 07/08/24 01:15 Temperature 100.8 F H Pulse Rate 77 78 75 Respiratory Rate 20 Blood Pressure 114/46 L 95/53 L 116/103 H Pulse Oximetry 96 Oxygen Delivery 07/08/24 01:30 07/08/24 01:45 07/08/24 02:00 Temperature Pulse Rate 77 76 77 Respiratory Rate Blood Pressure 82/45 L 116/42 L 100/88 Pulse Oximetry Oxygen Delivery 07/08/24 02:00 07/08/24 02:00 07/08/24 02:15 Temperature 100.7 F H Pulse Rate 77 77 77 Respiratory Rate 18 Blood Pressure 100/88 89/66 L Pulse Oximetry 97 Oxygen Delivery 07/08/24 03:15 07/08/24 03:30 07/08/24 03:45 Temperature Pulse Rate 76 78 76 Respiratory Rate Blood Pressure 120/46 L 128/104 H 124/104 H Pulse Oximetry Oxygen Delivery 07/08/24 04:00 07/08/24 04:00 07/08/24 04:00 Temperature Pulse Rate 75 76 Respiratory Rate Blood Pressure 110/65 Pulse Oximetry Oxygen Delivery Room Air 07/08/24 04:00 07/08/24 04:15 07/08/24 05:00 Temperature 100.4 F H Pulse Rate 74 77 76 Respiratory Rate 20 Blood Pressure 110/65 104/45 L 133/75 Pulse Oximetry 97 Oxygen Delivery 07/08/24 05:15 07/08/24 05:30 07/08/24 05:45 Temperature Pulse Rate 75 77 77 Respiratory Rate Blood Pressure 77/58 L 81/59 L 102/68 Pulse Oximetry Oxygen Delivery 07/08/24 06:00 07/08/24 06:00 07/08/24 06:00 Temperature 99.8 F H Pulse Rate 76 76 75 Respiratory Rate 18 Blood Pressure 112/81 112/81 Pulse Oximetry 99 Oxygen Delivery 07/08/24 06:20 07/08/24 06:30 07/08/24 06:45 Temperature Pulse Rate 75 73 74 Respiratory Rate Blood Pressure 100/69 113/85 123/56 L Pulse Oximetry Oxygen Delivery 07/08/24 07:00 07/08/24 08:00 07/08/24 08:00 Temperature 98.7 F Pulse Rate 74 73 73 Respiratory Rate 13 13 Blood Pressure 102/45 L 99/48 L Pulse Oximetry 100 100 Oxygen Delivery Room Air 07/08/24 08:00 Temperature Pulse Rate 71 Respiratory Rate Blood Pressure Pulse Oximetry Oxygen Delivery Intake/Output Intake/Output: Intake & Output 07/05/24 07/06/24 07/07/24 07/08/24 23:59 23:59 23:59 23:59 Intake Total 3029.4 2571.1 1386.6 Output Total 1325 850 Balance 3029.4 1246.1 536.6 Meds/Results Medications: Active Medications Generic Name Dose Route Start Last Admin Trade Name Freq PRN Reason Stop Dose Admin Acetaminophen 650 mg 07/06/24 21:49 Acetaminophen 650 Mg Suppository RECTAL Q6H PRN Mild Pain (1-3) or Fever Bisacodyl 10 mg 07/08/24 08:56 Bisacodyl 10 Mg Suppository RECTAL QAM PRN Constipation Cyanocobalamin 1,000 mcg 07/07/24 09:00 07/08/24 08:35 Cyanocobalamin 1,000 Mcg Tablet PO 1,000 mcg DAILY KASIE Administration Dextrose 12.5 gm 07/06/24 23:43 Dextrose 50% 25 Gm/50 Ml Syringe IV PUSH PRN PRN Hypoglycemia Protocol Enoxaparin Sodium 30 mg 07/07/24 09:00 07/08/24 08:35 Enoxaparin 30 Mg/0.3 Ml Syringe SUB-Q 30 mg DAILY KASIE Administration Glucagon 1 mg 07/06/24 23:43 Glucagon For Inj 1 Mg Vial IM PRN PRN Hypoglycemia Protocol Glucose 15 gm 07/06/24 23:43 Glucose Oral Gel 15 Gm Of Glucse In 37.5 Gm Tube PO PRN PRN Hypoglycemia Protocol Dextrose 1,000 mls @ 100 mls/hr 07/06/24 23:43 Dextrose 5% 1,000 Ml IVPB PRN PRN Hypoglycemia Protocol Norepinephrine Bitartrate 8 mg in 250 mls @ 0 mls/hr 07/07/24 02:55 07/08/24 07:00 Levophed 8 Mg/D5w 250 Ml IV CONT 0 mcg/min .Q0M KASIE 0 mls/hr Titration Protocol Fluconazole 200 mg in 100 mls @ 100 mls/hr 07/07/24 09:00 07/07/24 09:40 Diflucan 200 Mg/Nacl 100 Ml IVPB 07/21/24 08:59 Infused DAILY KASIE Infusion Meropenem 1 gm in 100 mls @ 200 mls/hr 07/08/24 08:30 07/08/24 08:34 IVPB 200 mls/hr Q12HR KASIE Administration Albumin Human 100 mls @ 60 mls/hr 07/08/24 12:00 Albutein IVPB 07/09/24 07:39 Q6HR KASIE Insulin Aspart 2 - 5 units 07/07/24 09:00 07/08/24 07:58 Insulin Aspart (*Bkc) 100 Units/Ml SUB-Q Not Given Q4HR [facility] Protocol Levothyroxine Sodium 100 mcg 07/07/24 06:30 07/08/24 05:40 Levothyroxine Sodium 100 Mcg Tablet PO 100 mcg DAILY@0630 KASIE Administration Mupirocin 1 applic 07/07/24 09:00 07/08/24 08:36 Mupirocin 2% Oint 22 Gm Tube EACH NARE 07/11/24 21:01 1 applic Q12HR KASIE Administration Pantoprazole Sodium 40 mg 07/07/24 09:00 07/08/24 08:35 Pantoprazole Sodium Iv 40 Mg Vial IV PUSH 40 mg QAM KASIE Administration Perflutren Lipid Microsphere 0 ml 07/07/24 08:05 Perflutren Lipid Microspheres 1.5 Ml Vial Diluted To 10 Ml Total Volume IV PUSH 07/10/24 08:05 ONCE PRN adequate visualization Protocol Sodium Chloride 10 ml 07/06/24 22:00 07/08/24 05:41 Central Line Flush IV PUSH 10 ml Q8HR KASIE Administration Sodium Chloride 20 ml 07/06/24 19:24 Central Line Flush IV PUSH PRN PRN after blood draws Tramadol HCl 50 mg 07/06/24 23:29 Tramadol Hcl (*Crx) 50 Mg Tablet PO Q8H PRN pain 4-10 Vancomycin HCl 125 mg 07/07/24 00:00 07/08/24 05:40 Vancomycin Hcl 125 Mg Oral Capsule PO 07/17/24 00:00 125 mg Q6HR KASIE Administration Vancomycin HCl 1 each 07/07/24 16:58 Vancomycin For Acute Kidney Injury IVPB PRN PRN Vancomycin Protocol Radiology Results: ITS Impressions Chest X-Ray 07/06/24 18:54 IMPRESSION: Bilateral perihilar pneumonia. The left central line tip is noted at the junction of the superior vena cava and left brachiocephalic vein. Head CT 07/06/24 19:40 IMPRESSION: No acute intracranial findings. Chest/Abdomen/Pelvis CT 07/06/24 21:16 IMPRESSION: CHEST: 1. Cardiomegaly with pericardial effusion. 2. No evidence of pneumonia or pneumothorax. 3. Right anterior chest wall seroma versus breast implant. ABDOMEN/PELVIS: 1. No evidence of appendicitis, diverticulitis or intestinal obstruction. 2. Thickened wall of the rectum which may indicate proctitis. Clinical correlation advised. 3. Air seen in the left pelvicalyceal system with hydronephrotic changes. Infection cannot be excluded. Further evaluation advised. 4. Seen in the area bladder with Kaplan's catheter. 5. Seroma in the anterior abdominal wall with wall calcification. Labs Labs: Laboratory Results - last 24 hr 07/07/24 07/07/24 07/07/24 08:51 11:57 14:59 WBC RBC Hgb Hct MCV MCH MCHC RDW Plt Count MPV Sodium 138 Potassium 3.4 Chloride 105 Carbon Dioxide 20 L Anion Gap 13 H BUN 65 H Creatinine 1.61 H Estim Creat Clear Calc 24 Estimated GFR 32 L Glucose 230 H POC Capillary Glucose 143 H Calcium 8.0 L Phosphorus Magnesium Total Bilirubin AST ALT Alkaline Phosphatase Total Protein Albumin TSH (Reflex) 1.560 07/07/24 07/07/24 07/08/24 15:58 19:57 00:05 WBC RBC Hgb Hct MCV MCH MCHC RDW Plt Count MPV Sodium Potassium Chloride Carbon Dioxide Anion Gap BUN Creatinine Estim Creat Clear Calc Estimated GFR Glucose POC Capillary Glucose 228 H 280 H 127 H Calcium Phosphorus Magnesium Total Bilirubin AST ALT Alkaline Phosphatase Total Protein Albumin TSH (Reflex) 07/08/24 07/08/24 07/08/24 04:24 04:24 04:24 WBC 9.2 RBC 2.59 L Hgb 7.8 L Hct 25.4 L MCV 98.1 MCH 30.1 MCHC 30.7 L RDW 15.3 H Plt Count 203 MPV 9.7 Sodium 137 Potassium 4.4 Chloride 104 Carbon Dioxide 22 Anion Gap 11 BUN 58 H Creatinine 1.44 H 1.28 H Estim Creat Clear Calc 27 30 Estimated GFR 36 L Glucose POC Capillary Glucose Calcium Phosphorus Magnesium Total Bilirubin AST ALT Alkaline Phosphatase Total Protein Albumin TSH (Reflex) 07/08/24 07/08/24 04:24 07:29 WBC RBC Hgb Hct MCV MCH MCHC RDW Plt Count MPV Sodium Potassium Chloride Carbon Dioxide Anion Gap BUN Creatinine Estim Creat Clear Calc Estimated GFR 41 L Glucose 142 H POC Capillary Glucose 131 H Calcium 7.6 L Phosphorus 3.1 Magnesium 2.0 Total Bilirubin 0.6 AST 22 ALT 14 Alkaline Phosphatase 44 Total Protein 7.0 Albumin 3.2 L TSH (Reflex)
--- NOTE | 2024-07-08 10:38 | IVDEFINITY ---
Prior to administration of IV Definity the patient was educated on the risks and benefits of the imaging enhancing agent including potential adverse side effects. The patient verbalized understanding. Allergies were verified. No exclusion criteria were identified and at least one of the following inclusion criteria were met: 1) physician request, 2) patient technically difficult to image (per the [place] [employer] guidelines of two or more segments not discernable within the apical view), or 3) questionable left ventricular function. ?
[2024-07-08] MEDS: MINOCYCLINE HCL 100 MG CAPSULE 200 MG PO ×2 (12:24→20:45)
[2024-07-08] MEDS: AMPICILLIN SULB 3 GM/NS 100 ML 3 GM/100 ML VIAL IVPB ×3 (12:24→23:40)
[2024-07-08] MEDS: ALBUMIN HUMAN 25% 25 GM/100 ML 100 ML IVPB ×3 (12:33→23:41)
[2024-07-08 12:43] LABS: Glucose Point of Care 110 mg/dl (65-105)
[2024-07-08 16:45] LABS: Glucose Point of Care 108 mg/dl (65-105)
[2024-07-08] MEDS: traMADol HCL (*CRX) 50 MG TABLET PO (20:55)
[2024-07-08 21:07] LABS: Glucose Point of Care 118 mg/dl (65-105)
[2024-07-08 23:49] LABS: Glucose Point of Care 144 mg/dl (65-105)
[2024-07-09] VITALS (27 sets, daily range): BP systolic 71–121; BP diastolic 46–95; PULSE 69–82; RESP 12–23; TEMP 36.7–37.4; O2SAT 94–98
[2024-07-09] MEDS: INSULIN ASPART (*BKC) 100 UNITS/ML SUB-Q ×3 (04:26→20:54)
[2024-07-09 04:37] LABS: Glucose Point of Care 202 mg/dl (65-105)
[2024-07-09] MEDS: LEVOTHYROXINE SODIUM 100 MCG TABLET PO (05:31)
[2024-07-09] MEDS: VANCOMYCIN HCL 125 MG ORAL CAPSULE PO ×4 (05:31→23:40)
[2024-07-09] MEDS: AMPICILLIN SULB 3 GM/NS 100 ML 3 GM/100 ML VIAL IVPB ×5 (05:32→20:55)
[2024-07-09] MEDS: CENTRAL LINE FLUSH 10 ML IV PUSH ×3 (05:32→20:56)
[2024-07-09] MEDS: ALBUMIN HUMAN 25% 25 GM/100 ML 100 ML IVPB (05:32)
[2024-07-09 06:10] LABS: Mean Corpuscular HGB Conc 30.4 g/dl (32-36); Mean Corpuscular Hemoglobin 30.7 pg (26-34); Mean Corpuscular Volume 100.9 fl (80-100); Platelet Count Result 128 k/mm3 (150-375); Red Blood Count 2.28 M/mm3 (4.2-5.4); Red Cell Distribution Width 15.4 % (11.5-14.5)
[2024-07-09 06:28] LABS: Alanine Aminotransferase 13 U/L (6-35); Albumin Level 4.1 g/dL (3.5-5.1); Alkaline Phosphatase 53 U/L (38-126); Anion Gap 15 mmol/L (4-12); Aspartate Amino Transferase 20 U/L (14-36); Blood Urea Nitrogen 44 mg/dL (7-17); Calcium 8.2 mg/dL (8.4-10.2); Carbon Dioxide 20 mmol/L (22-30); Chloride 106 mmol/L (98-107); Estimated CRCL calculation 32 ml/min; Estimated Glomerular Filt Rate 52; Glucose 173 mg/dL (65-110); Magnesium 1.9 mg/dL (1.6-2.3); Phosphorus 3.1 mg/dL (2.5-4.5); Potassium 3.9 mmol/L (3.4-5.0); Sodium 141 mmol/L (137-145)
[2024-07-09] MEDS: NOREPINEPHRINE 8 MG/D5W 250 ML 8 MG/250 ML BAG 9.38 MG IV CONT (07:10)
[2024-07-09] MEDS: MINOCYCLINE HCL 100 MG CAPSULE 200 MG PO ×2 (07:47→20:54)
[2024-07-09] MEDS: CYANOCOBALAMIN 1,000 MCG TABLET 1000 MCG PO (07:47)
[2024-07-09] MEDS: PANTOPRAZOLE SODIUM IV 40 MG VIAL IV PUSH (07:47)
[2024-07-09] MEDS: MUPIROCIN 2% OINT 22 GM TUBE 1 APPLIC EACH NARE ×2 (07:48→20:56)
[2024-07-09] MEDS: FLUCONAZOLE 200 MG/NACL 100 ML 200 MG/100 ML BAG 100 MG IVPB (07:48)
[2024-07-09 08:11] LABS: Glucose Point of Care 139 mg/dl (65-105)
--- NOTE | 2024-07-09 09:43 | PM.IMPN ---
Progress Note: A&P Assessment and Plan (1) Acute metabolic encephalopathy: Code(s): G93.41 - Metabolic encephalopathy Status: Acute (2) Septic shock: Code(s): A41.9 - Sepsis, unspecified organism; R65.21 - Severe sepsis with septic shock Status: Acute (3) Catheter-associated urinary tract infection: Qualifiers: Encounter type: initial encounter Indwelling urinary catheter type: indwelling urethral catheter Qualified Code(s): T83.511A - Infection and inflammatory reaction due to indwelling urethral catheter, initial encounter; N39.0 - Urinary tract infection, site not specified Code(s): T83.511A - Infection and inflammatory reaction due to indwelling urethral catheter, initial encounter; N39.0 - Urinary tract infection, site not specified Status: Acute Plan Septic shock Complicated UTI Bacteremia Code(s): A41.9 - Sepsis, unspecified organism; R65.21 - Severe sepsis with septic shock Status: Acute Assessment and Plan: Septic shock secondary to UTI. Patient has a chronic indwelling urinary catheter. Patient also has a history of ESBL. UA is also showing yeast and patient does have history yeast in her urine Patient received norepinephrine and fluid resuscitation and abdomen Kaplan has been changed Continue IV meropenem, vancomycin and fluconazole Urine culture pending. Blood culture growing Group G Streptococcus and Acinetobacter baumannii Repeat blood culture 07/08 penidng Restart norepinephrine, map below 65 07/09, transfuse 1 pack RBC Combined systolic and diastolic congestive heart failure: Qualifiers: Heart failure chronicity: acute on chronic Qualified Code(s): I50.43 - Acute on chronic combined systolic (congestive) and diastolic (congestive) heart failure Code(s): I50.40 - Unspecified combined systolic (congestive) and diastolic (congestive) heart failure Status: Acute Assessment and Plan: Continue to hold meds at this time due to concern septic shock. Echo showed 1. Left ventricular systolic function is normal, estimated at 25-30%. hpokinesis anterosptum. 2. Left ventricular chamber dimension is mildly enlarged. 3. The left ventricular diastolic function is grade II diastolic dysfunction. 4. Right ventricular chamber dimension is normal. 5. Right ventricular systolic function is reduced. 6. There is mild to moderate aortic valve stenosis with a peak velocity of 163.15 cm/s, mean gradient of 7 mmHg, and aortic valve area of 1.33 cm2. 7. There is mild aortic valve calcification. 8. There is mild aortic valve regurgitation. 9. There is mild mitral valve calcification. 10. There is mild tricuspid valve regurgitation. 11. Moderate pulmonary hypertension, estimated pulmonary arterial systolic pressure is 52 mmHg. 12. There is mild pulmonic regurgitation. 13. There is small pericardial effusion. Type 2 diabetes mellitus: Code(s): E11.9 - Type 2 diabetes mellitus without complications Status: Acute Assessment and Plan: Sliding scale insulin Diet ordered Diarrhea: Code(s): R19.7 - Diarrhea, unspecified Status: Acute Assessment and Plan: Patient has chronic constipation and also has diarrhea. Patient was recently diagnosed with C diff associated diarrhea Continue p.o. vancomycin as patient has been started on IV antibiotic patient is now having multiple liquid bowel movement ABDIRASHID (acute kidney injury): Code(s): N17.9 - Acute kidney failure, unspecified Status: Acute Assessment and Plan: Patient has chronic kidney disease with creatinine 1.2-1.4 Presented with creatinine of 2.1 likely secondary to septic shock CT scan does not show any stone or obstruction Monitor urine output electrolytes and creatinine Levophed weaned off Creatinine is trending down Catheter-associated urinary tract infection: Qualifiers: Indwelling urinary catheter type: indwelling urethral catheter Encounter type: initial encounter Qualified Code(s): T83.511A - Infection and inflammatory reaction due to indwelling urethral catheter, initial encounter; N39.0 - Urinary tract infection, site not specified Code(s): T83.511A - Infection and inflammatory reaction due to indwelling urethral catheter, initial encounter; N39.0 - Urinary tract infection, site not specified Status: Acute Assessment and Plan: See above Catheter was changed the ER C. difficile diarrhea: Onset Date: 01/2024 Code(s): A04.72 - Enterocolitis due to Clostridium difficile, not specified as recurrent Status: Acute Assessment and Plan: See above Severe anemia Hemoglobin dropped to 7.0, transfuse 1 pack RBC 07/09 Follow-up hemoglobin hemoglobin 8, transfuse if needed Acute metabolic encephalopathy: Code(s): G93.41 - Metabolic encephalopathy Status: Acute Assessment and Plan: Exam as above and significantly improved Acute metabolic encephalopathy likely secondary to septic shocks and medications Normal TSH and ammonia level Head CT reviewed Continue to Hold gabapentin and other sedative (9) Abnormal breast finding: Code(s): N64.59 - Other signs and symptoms in breast Status: Acute Assessment and Plan: Patient has a right anterior chest wall seroma versus breast implant on the CT scan. This is a known finding and was evaluated in January of 2024 by general surgery and was found to be not causing issues hence no further treatment was recommended. (10) Metabolic acidosis: Code(s): E87.20 - Acidosis, unspecified Status: Acute Assessment and Plan: Corrected. Off bicarb (11) Electrolyte abnormality: Code(s): E87.8 - Other disorders of electrolyte and fluid balance, not elsewhere classified Status: Acute Assessment and Plan: Improved after replacement potassium and magnesium Plan DVT prophylaxis -Lovenox Stress ulcer prophylaxis -PPI Nutrition -diet ordered Code Status -patient is DNR DNI as per her advance directive [facility] Subjective Date/time seen: 07/09/24 09:43 Interval history: I saw exam patient today, patient is alert oriented, has no complaints, except general weakness Blood pressure soft, off epinephrine, afebrile, pulse ox 100% room air, Labs reviewed, hemoglobin dropped to 7.0, Map below 65, restarted norepinephrine Exam Narrative: GENERAL: Ill-appearing in no acute distress. Well-nourished. - EYES: EOMI. Anicteric. - HENT: Moist mucous membranes. - LUNGS: Clear to auscultation bilaterally, no wheezing, rhonchi, or rales. - CARDIOVASCULAR: Regular rate and rhythm. No murmur. No JVD. - ABDOMEN: Soft, non-tender and non-distended. No palpable masses. - EXTREMITIES: No edema. Bilateral above knee amputation - NEUROLOGIC: No focal neurological deficits. CN II-XII grossly intact. - PSYCHIATRIC: Awake, Alert and oriented x 3. Appropriate mood and affect. - SKIN: Sacral decubital ulcer stage II - LYMPH: No cervical lymphadenopathy. Objective Data Vital Signs Vital Signs: Vital Signs - 24 hr 07/08/24 10:00 07/08/24 10:07/08/24 12:00 Temperature 98.2 F 97.9 F Pulse Rate 74 75 78 Respiratory Rate 21 H 18 Blood Pressure 126/88 161/116 H Pulse Oximetry 99 100 Oxygen Delivery Fraction of Inspired Oxygen 07/08/24 12:00 07/08/24 12:00 07/08/24 14:00 Temperature Pulse Rate 73 76 70 Respiratory Rate 13 Blood Pressure Pulse Oximetry 100 Oxygen Delivery Room Air Fraction of Inspired Oxygen 07/08/24 14:00 07/08/24 15:43 07/08/24 16:00 Temperature 97.7 F Pulse Rate 70 73 69 Respiratory Rate 19 13 Blood Pressure 103/43 L Pulse Oximetry 97 100 Oxygen Delivery Room Air Fraction of Inspired Oxygen 07/08/24 16:00 07/08/24 18:00 07/08/24 18:00 Temperature 97.7 F 97.6 F Pulse Rate 69 68 68 Respiratory Rate 14 15 Blood Pressure 109/34 L 112/47 L Pulse Oximetry 99 99 Oxygen Delivery Fraction of Inspired Oxygen 07/08/24 20:00 07/08/24 20:00 07/08/24 20:00 Temperature 97.5 F L Pulse Rate 71 72 Respiratory Rate 15 Blood Pressure 108/62 Pulse Oximetry 94 94 Oxygen Delivery Room Air Fraction of Inspired Oxygen 07/08/24 21:06 07/08/24 22:00 07/08/24 22:00 Temperature 97.7 F Pulse Rate 76 71 71 Respiratory Rate 20 14 Blood Pressure 141/46 H Pulse Oximetry 100 99 Oxygen Delivery Room Air Fraction of Inspired Oxygen 21 07/09/24 00:00 07/09/24 00:00 07/09/24 00:00 Temperature 98.0 F Pulse Rate 74 74 Respiratory Rate 16 Blood Pressure 118/48 L Pulse Oximetry 96 97 Oxygen Delivery Room Air Fraction of Inspired Oxygen 07/09/24 02:00 07/09/24 02:00 07/09/24 04:00 Temperature 98.0 F Pulse Rate 77 77 Respiratory Rate 18 Blood Pressure 107/55 L Pulse Oximetry 95 98 Oxygen Delivery Room Air Fraction of Inspired Oxygen 07/09/24 04:00 07/09/24 04:00 07/09/24 06:00 Temperature 98.3 F Pulse Rate 74 76 69 Respiratory Rate 19 Blood Pressure 93/56 L Pulse Oximetry 98 Oxygen Delivery Fraction of Inspired Oxygen 07/09/24 06:00 07/09/24 07:10 07/09/24 07:39 Temperature 98.0 F Pulse Rate 69 75 74 Respiratory Rate 12 Blood Pressure 103/86 71/51 L 111/52 L Pulse Oximetry 96 Oxygen Delivery Fraction of Inspired Oxygen 07/09/24 07:50 07/09/24 08:00 07/09/24 08:00 Temperature Pulse Rate 79 76 76 Respiratory Rate Blood Pressure 109/59 L 91/72 L Pulse Oximetry Oxygen Delivery Fraction of Inspired Oxygen 07/09/24 08:00 07/09/24 09:04 Temperature 98.3 F Pulse Rate 75 82 Respiratory Rate 15 Blood Pressure 91/72 L 80/56 L Pulse Oximetry 97 Oxygen Delivery Fraction of Inspired Oxygen Intake/Output Intake/Output: Intake & Output 07/06/24 07/07/24 07/08/24 07/09/24 23:59 23:59 23:59 23:59 Intake Total 3029.4 2571.1 1936.6 1162.8 Output Total 1325 1925 500 Balance 3029.4 1246.1 11.6 662.8 Meds/Results Medications: Active Medications Generic Name Dose Route Start Last Admin Trade Name Freq PRN Reason Stop Dose Admin Acetaminophen 650 mg 07/06/24 21:49 Acetaminophen 650 Mg Suppository RECTAL Q6H PRN Mild Pain (1-3) or Fever Bisacodyl 10 mg 07/08/24 08:56 Bisacodyl 10 Mg Suppository RECTAL QAM PRN Constipation Cyanocobalamin 1,000 mcg 07/07/24 09:00 07/09/24 07:47 Cyanocobalamin 1,000 Mcg Tablet PO 1,000 mcg DAILY KASIE Administration Dextrose 12.5 gm 07/06/24 23:43 Dextrose 50% 25 Gm/50 Ml Syringe IV PUSH PRN PRN Hypoglycemia Protocol Enoxaparin Sodium 40 mg 07/09/24 09:00 07/09/24 08:18 Enoxaparin 40 Mg/0.4 Ml Syringe SUB-Q Not Given DAILY KASIE Glucagon 1 mg 07/06/24 23:43 Glucagon For Inj 1 Mg Vial IM PRN PRN Hypoglycemia Protocol Glucose 15 gm 07/06/24 23:43 Glucose Oral Gel 15 Gm Of Glucse In 37.5 Gm Tube PO PRN PRN Hypoglycemia Protocol Dextrose 1,000 mls @ 100 mls/hr 07/06/24 23:43 Dextrose 5% 1,000 Ml IVPB PRN PRN Hypoglycemia Protocol Fluconazole 200 mg in 100 mls @ 100 mls/hr 07/07/24 09:00 07/09/24 09:15 Diflucan 200 Mg/Nacl 100 Ml IVPB 07/21/24 08:59 Infused DAILY KASIE Infusion Norepinephrine Bitartrate 8 mg in 250 mls @ 7.5 mls/hr 07/09/24 07:10 07/09/24 09:04 Levophed 8 Mg/D5w 250 Ml IV CONT 4 mcg/min .Q24H KASIE 7.5 mls/hr Titration Protocol 4 MCG/MIN Ampicillin Sodium/Sulbactam Sodium 3 gm in 100 mls @ 200 mls/hr 07/09/24 09:00 07/09/24 09:14 Unasyn 3 Gm/Ns 100 Ml IVPB Infused Q4HR KASIE Infusion Sodium Chloride 250 mls @ 30 mls/hr 07/09/24 08:03 Normal Saline Iv IV CONT 07/09/24 16:22 .Q8H20M STA Insulin Aspart 2 - 5 units 07/07/24 09:00 07/09/24 07:47 Insulin Aspart (*Bkc) 100 Units/Ml SUB-Q Not Given Q4HR KASIE Protocol Levothyroxine Sodium 100 mcg 07/07/24 06:30 07/09/24 05:31 Levothyroxine Sodium 100 Mcg Tablet PO 100 mcg DAILY@0630 KASIE Administration Minocycline HCl 200 mg 07/08/24 10:50 07/09/24 07:47 Minocycline Hcl 100 Mg Capsule PO 200 mg Q12HR KASIE Administration Mupirocin 1 applic 07/07/24 09:00 07/09/24 07:48 Mupirocin 2% Oint 22 Gm Tube EACH NARE 07/11/24 21:01 1 applic Q12HR KASIE Administration Pantoprazole Sodium 40 mg 07/07/24 09:00 07/09/24 07:47 Pantoprazole Sodium Iv 40 Mg Vial IV PUSH 40 mg QAM KASIE Administration Sodium Chloride 10 ml 07/06/24 22:00 07/09/24 05:32 Central Line Flush IV PUSH 10 ml Q8HR KASIE Administration Sodium Chloride 20 ml 07/06/24 19:24 Central Line Flush IV PUSH PRN PRN after blood draws Tramadol HCl 50 mg 07/06/24 23:29 07/08/24 20:55 Tramadol Hcl (*Crx) 50 Mg Tablet PO 50 mg Q8H PRN Administration pain 4-10 Vancomycin HCl 125 mg 07/07/24 00:00 07/09/24 05:31 Vancomycin Hcl 125 Mg Oral Capsule PO 07/17/24 00:00 125 mg Q6HR KASIE Administration Radiology Results: ITS Impressions Chest X-Ray 07/06/24 18:54 IMPRESSION: Bilateral perihilar pneumonia. The left central line tip is noted at the junction of the superior vena cava and left brachiocephalic vein. Head CT 07/06/24 19:40 IMPRESSION: No acute intracranial findings. Chest/Abdomen/Pelvis CT 07/06/24 21:16 IMPRESSION: CHEST: 1. Cardiomegaly with pericardial effusion. 2. No evidence of pneumonia or pneumothorax. 3. Right anterior chest wall seroma versus breast implant. ABDOMEN/PELVIS: 1. No evidence of appendicitis, diverticulitis or intestinal obstruction. 2. Thickened wall of the rectum which may indicate proctitis. Clinical correlation advised. 3. Air seen in the left pelvicalyceal system with hydronephrotic changes. Infection cannot be excluded. Further evaluation advised. 4. Seen in the area bladder with Kaplan's catheter. 5. Seroma in the anterior abdominal wall with wall calcification. Labs Labs: Laboratory Results - last 24 hr 07/08/24 07/08/24 07/08/24 12:21 16:42 20:43 WBC RBC Hgb Hct MCV MCH MCHC RDW Plt Count MPV Sodium Potassium Chloride Carbon Dioxide Anion Gap BUN Creatinine Estim Creat Clear Calc Estimated GFR Glucose POC Capillary Glucose 110 H 108 H 118 H Calcium Phosphorus Magnesium Total Bilirubin AST ALT Alkaline Phosphatase Total Protein Albumin Blood Type Antibody Screen Crossmatch 07/08/24 07/09/24 07/09/24 23:39 04:19 06:05 WBC 6.0 RBC 2.28 L Hgb 7.0 L Hct 23.0 L MCV 100.9 H MCH 30.7 MCHC 30.4 L RDW 15.4 H Plt Count 128 L MPV 10.0 Sodium 141 Potassium 3.9 Chloride 106 Carbon Dioxide 20 L Anion Gap 15 H BUN 44 H D Creatinine 1.05 H Estim Creat Clear Calc 32 Estimated GFR 52 L Glucose 173 H POC Capillary Glucose 144 H 202 H Calcium 8.2 L Phosphorus 3.1 Magnesium 1.9 Total Bilirubin 1.0 AST 20 ALT 13 Alkaline Phosphatase 53 Total Protein 8.0 Albumin 4.1 Blood Type Antibody Screen Crossmatch 07/09/24 07/09/24 07:46 08:43 WBC RBC Hgb Hct MCV MCH MCHC RDW Plt Count MPV Sodium Potassium Chloride Carbon Dioxide Anion Gap BUN Creatinine Estim Creat Clear Calc Estimated GFR Glucose POC Capillary Glucose 139 H Calcium Phosphorus Magnesium Total Bilirubin AST ALT Alkaline Phosphatase Total Protein Albumin Blood Type O Positive Antibody Screen Negative Crossmatch See Detail
--- NOTE | 2024-07-09 09:57 | P.PNINT_ITS ---
Progress Note: A&P Assessment and Plan (1) Septic shock: Code(s): A41.9 - Sepsis, unspecified organism; R65.21 - Severe sepsis with septic shock Status: Acute Assessment and Plan: Septic shock secondary to UTI and bacteremia. Patient has a chronic indwelling urinary catheter. Patient also has a history of ESBL. UA is also showing yeast and patient does have history yeast in her urine 07/08: Patient was off Levophed. Will hold further crystalloids. Continue albumin for another [address] scan does not show any stone or obstruction. Kaplan has been changed 07/07 Urine culture pending. 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 Cardiomyopathy with EF of 25-30%, grade 2 diastolic dysfunction and moderate aortic valve stenosis as under. Patient also has moderate pulmonary hypertension -patient does take statin, carvedilol, Jardiance, Entresto, Lasix, [facility] 07/08/2024 echocardiogram: Summary 1. Left ventricular systolic function is normal, estimated at 25-30%. hpokinesis anterosptum. 2. Left ventricular chamber dimension is mildly enlarged. 3. The left ventricular diastolic function is grade II diastolic dysfunction. 4. Right ventricular chamber dimension is normal. 5. Right ventricular systolic function is reduced. 6. There is mild to moderate aortic valve stenosis with a peak velocity of 163.15 cm/s, mean gradient of 7 mmHg, and aortic valve area of 1.33 cm2. 7. There is mild aortic valve calcification. 8. There is mild aortic valve regurgitation. 9. There is mild mitral valve calcification. 10. There is mild tricuspid valve regurgitation. 11. Moderate pulmonary hypertension, estimated pulmonary arterial systolic pressure is 52 mmHg. 12. There is mild pulmonic regurgitation. 13. There is small pericardial effusion. (3) Type 2 diabetes mellitus: Code(s): E11.9 - Type 2 diabetes mellitus without complications Status: Acute Assessment and Plan: Sliding scale insulin Diet ordered (4) Diarrhea: Code(s): R19.7 - Diarrhea, unspecified Status: Acute Assessment and Plan: Patient has chronic constipation and also has diarrhea. Patient was recently diagnosed with C diff associated diarrhea Continue p.o. vancomycin as patient has been started on IV antibiotic Laxatives have been changed to p.r.n. as patient is now having multiple liquid bowel movement (5) ABDIRASHID (acute kidney injury): Code(s): N17.9 - Acute kidney failure, unspecified Status: Acute Assessment and Plan: Patient has chronic kidney disease with creatinine 1.2-1.4 Presented with creatinine of 2.1 likely secondary to septic shock CT scan does not show any stone or obstruction Monitor urine output electrolytes and creatinine Creatinine improving and now at 1.28. Will hold further crystalloids Continue albumin for another 24 hours Levophed was restarted 07/08 (6) Catheter-associated urinary tract infection: Qualifiers: Encounter type: initial encounter Indwelling urinary catheter type: ind welling urethral catheter Qualified Code(s): T83.511A - Infection and inflammatory reaction due to indwelling urethral catheter, initial encounter; N39.0 - Urinary tract infection, site not specified Code(s): T83.511A - Infection and inflammatory reaction due to indwelling urethral catheter, initial encounter; N39.0 - Urinary tract infection, site not specified Status: Acute Assessment and Plan: See above Catheter was changed the ER (7) C. difficile diarrhea: Onset Date: 01/2024 Code(s): A04.72 - Enterocolitis due to Clostridium difficile, not specified as recurrent Status: Acute Assessment and Plan: See above (8) Acute metabolic encephalopathy: Code(s): G93.41 - Metabolic encephalopathy Status: Acute Assessment and Plan: Exam as above and significantly improved Acute metabolic encephalopathy likely secondary to septic shocks and medications Normal TSH and ammonia level Head CT reviewed Continue to Hold gabapentin and other sedative (9) Abnormal breast finding: Code(s): N64.59 - Other signs and symptoms in breast Status: Acute Assessment and Plan: Patient has a right anterior chest wall seroma versus breast implant on the CT scan. This is a known finding and was evaluated in January of 2024 by general surgery and was found to be not causing issues hence no further treatment was recommended. (10) Metabolic acidosis: Code(s): E87.20 - Acidosis, unspecified Status: Acute Assessment and Plan: Improved with IV fluids with bicarb. Off bicarb (11) Electrolyte abnormality: Code(s): E87.8 - Other disorders of electrolyte and fluid balance, not elsewhere classified Status: Acute Assessment and Plan: Improved after replacement potassium and magnesium (12) Anemia: Code(s): D64.9 - Anemia, unspecified Status: Acute Assessment and Plan: Patient dropped hemoglobin to 7.0 this morning, could be related to septic shock -07/09 will transfuse 1 unit of packed RBCs -this may improve blood pressure is help patient, for Levophed -monitor H&H post transfusion Plan DVT prophylaxis -Lovenox Stress ulcer prophylaxis -PPI Nutrition -diet ordered Code Status -patient is DNR DNI as per her advance directive [facility] Total Critical Care Time - 32 minutes Due to a high probability of clinically significant, life threatening deterioration, the patient required my highest level of preparedness to intervene emergently and I personally spent this critical care time directly and personally managing the patient. This critical care time included obtaining a history; examining the patient; pulse oximetry; ordering and review of studies; arranging urgent treatment with development of a management plan; evaluation of patient's response to treatment; frequent reassessment; and discussions with other providers. It was exclusive of separately billable procedures and treating other patients and teaching time. Please see Assessment and Plan section and the rest of the note for further information on patient assessment and treatment Subjective Date/time seen: 07/09/24 09:57 Interval history: Reason for consult: Septic shock, UTI, bacteremia 07/08/2024: Pt seen and examined, Is awake, alert in no distress. Denies any pain, SOB, no other complaints. UO has been adequate, Afebrile. Dropped her Hb to 7.0 this am Also hypotensive, requiring Levophed to be restarted this morning Review of Systems Review of Systems: All systems reviewed & are unremarkable except as noted in HPI and below (Subjective) Exam Narrative: General: Pt is awake alert and no distress Lungs/Chest: Trachea central Clear BS B/L, No crackles or wheezing. Cardiac: RRR. Normal S1 S2. No murmurs Circulation: Bilateral AKA Abdomen: Normal bowel sounds. Obese. Soft. NT. ND. Extremities: bilateral AKA : Kaplan in place Neurologic: Alert awake, A/O x3, followed commands with both upper extremity, facial asymmetry, PERRL Skin: Sacral maceration Objective Data Vital Signs Vital Signs: Vital Signs - 24 hr 07/08/24 10:00 07/08/24 10:00 07/08/24 12:00 Temperature 98.2 F 97.9 F Pulse Rate 74 75 78 Respiratory Rate 21 H 18 Blood Pressure 126/88 161/116 H Pulse Oximetry 99 100 Oxygen Delivery Fraction of Inspired Oxygen 07/08/24 12:00 07/08/24 12:00 07/08/24 14:00 Temperature Pulse Rate 73 76 70 Respiratory Rate 13 Blood Pressure Pulse Oximetry 100 Oxygen Delivery Room Air Fraction of Inspired Oxygen 07/08/24 14:00 07/08/24 15:43 07/08/24 16:00 Temperature 97.7 F Pulse Rate 70 73 69 Respiratory Rate 19 13 Blood Pressure 103/43 L Pulse Oximetry 97 100 Oxygen Delivery Room Air Fraction of Inspired Oxygen 07/08/24 16:00 07/08/24 18:00 07/08/24 18:00 Temperature 97.7 F 97.6 F Pulse Rate 69 68 68 Respiratory Rate 14 15 Blood Pressure 109/34 L 112/47 L Pulse Oximetry 99 99 Oxygen Delivery Fraction of Inspired Oxygen 07/08/24 20:00 07/08/24 20:00 07/08/24 20:00 Temperature 97.5 F L Pulse Rate 71 72 Respiratory Rate 15 Blood Pressure 108/62 Pulse Oximetry 94 94 Oxygen Delivery Room Air Fraction of Inspired Oxygen 07/08/24 21:06 07/08/24 22:00 07/08/24 22:00 Temperature 97.7 F Pulse Rate 76 71 71 Respiratory Rate 20 14 Blood Pressure 141/46 H Pulse Oximetry 100 99 Oxygen Delivery Room Air Fraction of Inspired Oxygen 07/09/24 00:00 07/09/24 00:00 07/09/24 00:00 Temperature 98.0 F Pulse Rate 74 74 Respiratory Rate 16 Blood Pressure 118/48 L Pulse Oximetry 96 97 Oxygen Delivery Room Air Fraction of Inspired Oxygen 07/09/24 02:00 07/09/24 02:00 07/09/24 04:00 Temperature 98.0 F Pulse Rate 77 77 Respiratory Rate 18 Blood Pressure 107/55 L Pulse Oximetry 95 98 Oxygen Delivery Room Air Fraction of Inspired Oxygen 07/09/24 04:00 07/09/24 04:00 07/09/24 06:00 Temperature 98.3 F Pulse Rate 74 76 69 Respiratory Rate 19 Blood Pressure 93/56 L Pulse Oximetry 98 Oxygen Delivery Fraction of Inspired Oxygen 07/09/24 06:00 07/09/24 07:10 07/09/24 07:39 Temperature 98.0 F Pulse Rate 69 75 74 Respiratory Rate 12 Blood Pressure 103/86 71/51 L 111/52 L Pulse Oximetry 96 Oxygen Delivery Fraction of Inspired Oxygen 07/09/24 07:50 07/09/24 08:00 07/09/24 08:00 Temperature Pulse Rate 79 76 76 Respiratory Rate Blood Pressure 109/59 L 91/72 L Pulse Oximetry Oxygen Delivery Fraction of Inspired Oxygen 07/09/24 08:00 07/09/24 09:04 Temperature 98.3 F Pulse Rate 75 82 Respiratory Rate 15 Blood Pressure 91/72 L 80/56 L Pulse Oximetry 97 Oxygen Delivery Fraction of Inspired Oxygen Intake/Output Intake/Output: Intake & Output 07/06/24 07/07/24 07/08/24 07/09/24 23:59 23:59 23:59 23:59 Intake Total 3029.4 2571.1 1936.6 1162.8 Output Total 1325 1925 500 Balance 3029.4 1246.1 11.6 662.8 Meds/Results Medications: Active Medications Generic Name Dose Route Start Last Admin Trade Name Freq PRN Reason Stop Dose Admin Acetaminophen 650 mg 07/06/24 21:49 Acetaminophen 650 Mg Suppository RECTAL Q6H PRN Mild Pain (1-3) or Fever Bisacodyl 10 mg 07/08/24 08:56 Bisacodyl 10 Mg Suppository RECTAL QAM PRN Constipation Cyanocobalamin 1,000 mcg 07/07/24 09:00 07/09/24 07:47 Cyanocobalamin 1,000 Mcg Tablet PO 1,000 mcg DAILY KASIE Administration Dextrose 12.5 gm 07/06/24 23:43 Dextrose 50% 25 Gm/50 Ml Syringe IV PUSH PRN PRN Hypoglycemia Protocol Enoxaparin Sodium 40 mg 07/09/24 09:00 07/09/24 08:18 Enoxaparin 40 Mg/0.4 Ml Syringe SUB-Q Not Given DAILY KASIE Glucagon 1 mg 07/06/24 23:43 Glucagon For Inj 1 Mg Vial IM PRN PRN Hypoglycemia Protocol Glucose 15 gm 07/06/24 23:43 Glucose Oral Gel 15 Gm Of Glucse In 37.5 Gm Tube PO PRN PRN Hypoglycemia Protocol Dextrose 1,000 mls @ 100 mls/hr 07/06/24 23:43 Dextrose 5% 1,000 Ml IVPB PRN PRN Hypoglycemia Protocol Fluconazole 200 mg in 100 mls @ 100 mls/hr 07/07/24 09:00 07/09/24 09:15 Diflucan 200 Mg/Nacl 100 Ml IVPB 07/21/24 08:59 Infused DAILY KASIE Infusion Norepinephrine Bitartrate 8 mg in 250 mls @ 7.5 mls/hr 07/09/24 07:10 07/09/24 09:04 Levophed 8 Mg/D5w 250 Ml IV CONT 4 mcg/min .Q24H KASIE 7.5 mls/hr Titration Protocol 4 MCG/MIN Ampicillin Sodium/Sulbactam Sodium 3 gm in 100 mls @ 200 mls/hr 07/09/24 09:00 07/09/24 09:14 Unasyn 3 Gm/Ns 100 Ml IVPB Infused Q4HR KASIE Infusion Sodium Chloride 250 mls @ 30 mls/hr 07/09/24 08:03 Normal Saline Iv IV CONT 07/09/24 16:22 .Q8H20M STA Insulin Aspart 2 - 5 units 07/07/24 09:00 07/09/24 07:47 Insulin Aspart (*Bkc) 100 Units/Ml SUB-Q Not Given Q4HR KASIE Protocol Levothyroxine Sodium 100 mcg 07/07/24 06:30 07/09/24 05:31 Levothyroxine Sodium 100 Mcg Tablet PO 100 mcg DAILY@0630 KASIE Administration Minocycline HCl 200 mg 07/08/24 10:50 07/09/24 07:47 Minocycline Hcl 100 Mg Capsule PO 200 mg Q12HR KASIE Administration Mupirocin 1 applic 07/07/24 09:00 07/09/24 07:48 Mupirocin 2% Oint 22 Gm Tube EACH NARE 07/11/24 21:01 1 applic Q12HR KASIE Administration Pantoprazole Sodium 40 mg 07/07/24 09:00 07/09/24 07:47 Pantoprazole Sodium Iv 40 Mg Vial IV PUSH 40 mg QAM KASIE Administration Sodium Chloride 10 ml 07/06/24 22:00 07/09/24 05:32 Central Line Flush IV PUSH 10 ml Q8HR KASIE Administration Sodium Chloride 20 ml 07/06/24 19:24 Central Line Flush IV PUSH PRN PRN after blood draws Tramadol HCl 50 mg 07/06/24 23:29 07/08/24 20:55 Tramadol Hcl (*Crx) 50 Mg Tablet PO 50 mg Q8H PRN Administration pain 4-10 Vancomycin HCl 125 mg 07/07/24 00:00 07/09/24 05:31 Vancomycin Hcl 125 Mg Oral Capsule PO 07/17/24 00:00 125 mg Q6HR KASIE Administration Radiology Results: ITS Impressions Chest X-Ray 07/06/24 18:54 IMPRESSION: Bilateral perihilar pneumonia. The left central line tip is noted at the junction of the superior vena cava and left brachiocephalic vein. Head CT 07/06/24 19:40 IMPRESSION: No acute intracranial findings. Chest/Abdomen/Pelvis CT 07/06/24 21:16 IMPRESSION: CHEST: 1. Cardiomegaly with pericardial effusion. 2. No evidence of pneumonia or pneumothorax. 3. Right anterior chest wall seroma versus breast implant. ABDOMEN/PELVIS: 1. No evidence of appendicitis, diverticulitis or intestinal obstruction. 2. Thickened wall of the rectum which may indicate proctitis. Clinical correlation advised. 3. Air seen in the left pelvicalyceal system with hydronephrotic changes. Infection cannot be excluded. Further evaluation advised. 4. Seen in the area bladder with Kaplan's catheter. 5. Seroma in the anterior abdominal wall with wall calcification. Labs Labs: Laboratory Results - last 24 hr 07/08/24 07/08/24 07/08/24 12:21 16:42 20:43 WBC RBC Hgb Hct MCV MCH MCHC RDW Plt Count MPV Sodium Potassium Chloride Carbon Dioxide Anion Gap BUN Creatinine Estim Creat Clear Calc Estimated GFR Glucose POC Capillary Glucose 110 H 108 H 118 H Calcium Phosphorus Magnesium Total Bilirubin AST ALT Alkaline Phosphatase Total Protein Albumin Blood Type Antibody Screen Crossmatch 07/08/24 07/09/24 07/09/24 23:39 04:19 06:05 WBC 6.0 RBC 2.28 L Hgb 7.0 L Hct 23.0 L MCV 100.9 H MCH 30.7 MCHC 30.4 L RDW 15.4 H Plt Count 128 L MPV 10.0 Sodium 141 Potassium 3.9 Chloride 106 Carbon Dioxide 20 L Anion Gap 15 H BUN 44 H D Creatinine 1.05 H Estim Creat Clear Calc 32 Estimated GFR 52 L Glucose 173 H POC Capillary Glucose 144 H 202 H Calcium 8.2 L Phosphorus 3.1 Magnesium 1.9 Total Bilirubin 1.0 AST 20 ALT 13 Alkaline Phosphatase 53 Total Protein 8.0 Albumin 4.1 Blood Type Antibody Screen Crossmatch 07/09/24 07/09/24 07:46 08:43 WBC RBC Hgb Hct MCV MCH MCHC RDW Plt Count MPV Sodium Potassium Chloride Carbon Dioxide Anion Gap BUN Creatinine Estim Creat Clear Calc Estimated GFR Glucose POC Capillary Glucose 139 H Calcium Phosphorus Magnesium Total Bilirubin AST ALT Alkaline Phosphatase Total Protein Albumin Blood Type O Positive Antibody Screen Negative Crossmatch See Detail Quality VTE Prophylaxis VTE prophylaxis: pharmacologic ordered (Lovenox 30 mg subQ daily.)
--- NOTE | 2024-07-09 11:10 | PCNFU ---
Nutrition Follow-Up Complete: Inadequate Oral Intake as related to UTI as evidenced by poor po intake reported. Goal: Adequate Intake of at least 75% of meals/supplements Patient is progressing towards goal. We will continue current goal. Pt current nutrition is Soft and Bite Sized, level 6/DBCC with Glucerna shakes BID. Last recorded weight is 57.65 kg, down from 62 kg on admit. Bowel Motility: +BM reported 07/09 Labs Reviewed: Glu 173, BUN 44, GFR 52, Cr 1.05, Hgb 7.0, Hct 23.0 Meds Noted: Levophed, Protonix, Vit B12, Novolog, NS, Lovenox Skin: WNL Additional Notes: Patient currently is tolerating diet. Today eating > 75% of breakfast. Diet supplements are providing an additional 240 kcal and 10 gm protein. Agree with diet orders. Will monitor weight, labs, skin, diet orders, meds every 5 days.
[2024-07-09 11:40] LABS: Glucose Point of Care 223 mg/dl (65-105)
[2024-07-09] MEDS: SODIUM CHLORIDE 0.9% IV 250 ML 30 ML IV CONT (13:46)
[2024-07-09] MEDS: NOREPINEPHRINE 8 MG/D5W 250 ML 8 MG/250 ML BAG 3.75 MG IV CONT (13:53)
[2024-07-09 15:26] LABS: Hematocrit 30.2 % (37.0-47.0); Hemoglobin 9.3 g/dL (12.0-15.0)
[2024-07-09 16:41] LABS: Glucose Point of Care 169 mg/dl (65-105)
[2024-07-09] MEDS: traMADol HCL (*CRX) 50 MG TABLET PO (20:54)
[2024-07-09 21:04] LABS: Glucose Point of Care 202 mg/dl (65-105)
[2024-07-09 23:40] LABS: Glucose Point of Care 151 mg/dl (65-105)
[2024-07-10] VITALS (19 sets, daily range): BP systolic 83–124; BP diastolic 44–79; PULSE 75–787; RESP 17–23; TEMP 36.8–37.3; O2SAT 94–99
[2024-07-10] MEDS: AMPICILLIN SULB 3 GM/NS 100 ML 3 GM/100 ML VIAL IVPB ×6 (01:18→21:35)
[2024-07-10] MEDS: VANCOMYCIN HCL 125 MG ORAL CAPSULE PO ×3 (05:24→17:22)
[2024-07-10] MEDS: CENTRAL LINE FLUSH 10 ML IV PUSH ×3 (05:26→21:36)
[2024-07-10] MEDS: LEVOTHYROXINE SODIUM 100 MCG TABLET PO (05:35)
[2024-07-10 05:39] LABS: Glucose Point of Care 105 mg/dl (65-105)
[2024-07-10 06:24] LABS: Basophils Absolute Auto 0.1 K/mm3 (0.0-0.1); Basophils Percent Auto 0.9 % (0.2-1.2); Eosinophils Absolute Auto 0.3 K/mm3 (0-0.3); Eosinophils Percent Auto 3.8 % (0-4.4); Hemoglobin 9.3 g/dL (12.0-15.0); Immature Granulocyte Absolute 0.03 K/mm3 (0.00-0.031); Immature Granulocyte Percent A 0.4 % (0-0.5); Lymphocytes Absolute Auto 1.36 K/mm3 (0.9-3.2); Mean Corpuscular Hemoglobin 29.6 pg (26-34); Mean Corpuscular Volume 95.5 fl (80-100); Mean Platelet Volume 9.6 fl (7.4-10.4); Monocytes Absolute Auto 0.6 K/mm3 (0.1-0.6); Monocytes Percent Auto 7.5 % (2.6-8.5); Neutrophils Absolute Auto 5.6 K/mm3 (1.3-6.7); Neutrophils Percent Auto 70.4 % (45.5-73.1); Platelet Count Result 167 k/mm3 (150-375); Red Blood Count 3.14 M/mm3 (4.2-5.4)
[2024-07-10 06:36] LABS: Lactic Acid Reflex 0.8 mmol/L (0.7-2.0)
[2024-07-10 06:37] LABS: Alanine Aminotransferase 13 U/L (6-35); Alkaline Phosphatase 46 U/L (38-126); Anion Gap 16 mmol/L (4-12); Aspartate Amino Transferase 24 U/L (14-36); Bilirubin,Total 1.2 mg/dL (0.2-1.3); Blood Urea Nitrogen 43 mg/dL (7-17); Carbon Dioxide 19 mmol/L (22-30); Chloride 105 mmol/L (98-107); Estimated CRCL calculation 31 ml/min; Estimated Glomerular Filt Rate 49; Glucose 105 mg/dL (65-110); Magnesium 1.7 mg/dL (1.6-2.3); Phosphorus 3.6 mg/dL (2.5-4.5); Sodium 140 mmol/L (137-145)
[2024-07-10 07:17] LABS: Glucose Point of Care 106 mg/dl (65-105)
--- NOTE | 2024-07-10 08:53 | WPDINTPN ---
Progress Note: A&P Assessment and Plan (1) Septic shock: Code(s): A41.9 - Sepsis, unspecified organism; R65.21 - Severe sepsis with septic shock Status: Acute Assessment and Plan: Septic shock secondary to UTI and bacteremia. Patient has a chronic indwelling urinary catheter. Patient also has a history of ESBL. UA is also showing yeast and patient does have history yeast in her urine 07/08: Patient was off Levophed. Will hold further crystalloids. Continue albumin for another [address] scan does not show any stone or obstruction. Kaplan has been changed 07/07 Urine culture growing Criselda glabrata. 07/06: Blood culture growing group G Streptococcus and Acinetobacter baumannii 07/08: Repeat blood cultures: Preliminary blood cultures are negative x2 Continue fluconazole for Criselda glabrata in the urine Continue Unasyn and minocycline as per recommendation of ID pharmacist for Acinetobacter baumannii and group G Streptococcus (2) Combined systolic and diastolic congestive heart failure: Qualifiers: Heart failure chronicity: acute on chronic Qualified Code(s): I50.43 - Acute on chronic combined systolic (congestive) and diastolic (congestive) heart failure Code(s): I50.40 - Unspecified combined systolic (congestive) and diastolic (congestive) heart failure Status: Acute Assessment and Plan: Continue to hold meds at this time due to hypotension Cardiomyopathy with EF of 25-30%, grade 2 diastolic dysfunction and moderate aortic valve stenosis as under. Patient also has moderate pulmonary hypertension -patient does take statin, carvedilol, Jardiance, Entresto, Lasix, [facility] 07/08/2024 echocardiogram: Summary 1. Left ventricular systolic function is normal, estimated at 25-30%. hpokinesis anterosptum. 2. Left ventricular chamber dimension is mildly enlarged. 3. The left ventricular diastolic function is grade II diastolic dysfunction. 4. Right ventricular chamber dimension is normal. 5. Right ventricular systolic function is reduced. 6. There is mild to moderate aortic valve stenosis with a peak velocity of 163.15 cm/s, mean gradient of 7 mmHg, and aortic valve area of 1.33 cm2. 7. There is mild aortic valve calcification. 8. There is mild aortic valve regurgitation. 9. There is mild mitral valve calcification. 10. There is mild tricuspid valve regurgitation. 11. Moderate pulmonary hypertension, estimated pulmonary arterial systolic pressure is 52 mmHg. 12. There is mild pulmonic regurgitation. 13. There is small pericardial effusion. (3) Type 2 diabetes mellitus: Code(s): E11.9 - Type 2 diabetes mellitus without complications Status: Acute Assessment and Plan: Sliding scale insulin Diet ordered (4) Diarrhea: Code(s): R19.7 - Diarrhea, unspecified Status: Acute Assessment and Plan: Patient has chronic constipation and also has diarrhea. Patient was recently diagnosed with C diff associated diarrhea Continue p.o. vancomycin as patient has been started on IV antibiotic Laxatives have been changed to p.r.n. as patient had multiple liquid bowel movements (5) ABDIRASHID (acute kidney injury): Code(s): N17.9 - Acute kidney failure, unspecified Status: Acute Assessment and Plan: Patient has chronic kidney disease with creatinine 1.2-1.4 Presented with creatinine of 2.1 likely secondary to septic shock CT scan does not show any stone or obstruction Monitor urine output electrolytes and creatinine Creatinine back to baseline. Will hold further crystalloids Status post albumin Off Levophed (6) Catheter-associated urinary tract infection: Qualifiers: Indwelling urinary catheter type: indwelling urethral catheter Encounter type: initial encounter Qualified Code(s): T83.511A - Infection and inflammatory reaction due to indwelling urethral catheter, initial encounter; N39.0 - Urinary tract infection, site not specified Code(s): T83.511A - Infection and inflammatory reaction due to indwelling urethral catheter, initial encounter; N39.0 - Urinary tract infection, site not specified Status: Acute Assessment and Plan: See above Catheter was changed the ER (7) C. difficile diarrhea: Onset Date: 01/2024 Code(s): A04.72 - Enterocolitis due to Clostridium difficile, not specified as recurrent Status: Acute Assessment and Plan: See above (8) Acute metabolic encephalopathy: Code(s): G93.41 - Metabolic encephalopathy Status: Acute Assessment and Plan: Exam as above and significantly improved Acute metabolic encephalopathy likely secondary to septic shocks and medications Normal TSH and ammonia level Head CT reviewed Continue to Hold gabapentin and other sedative (9) Abnormal breast finding: Code(s): N64.59 - Other signs and symptoms in breast Status: Acute Assessment and Plan: Patient has a right anterior chest wall seroma versus breast implant on the CT scan. This is a known finding and was evaluated in January of 2024 by general surgery and was found to be not causing issues hence no further treatment was recommended. (10) Metabolic acidosis: Code(s): E87.20 - Acidosis, unspecified Status: Acute Assessment and Plan: Improved with IV fluids with bicarb. Off bicarb (11) Electrolyte abnormality: Code(s): E87.8 - Other disorders of electrolyte and fluid balance, not elsewhere classified Status: Acute Assessment and Plan: Potassium and magnesium improved after replacement (12) Anemia: Code(s): D64.9 - Anemia, unspecified Status: Acute Assessment and Plan: 07/09: Patient dropped hemoglobin to 7.0 this morning, could be related to septic shock -07/09 will transfuse 1 unit of packed RBCs 07/10: Hemoglobin has been stable Continue to monitor Plan DVT prophylaxis -holding Lovenox due to anemia, may restart Lovenox in a.m. if hemoglobin remains stable Stress ulcer prophylaxis -PPI Nutrition -tolerating diabetic diet Code Status -patient is DNR DNI as per her advance directive [facility] Total Critical Care Time - 32 minutes Due to a high probability of clinically significant, life threatening deterioration, the patient required my highest level of preparedness to intervene emergently and I personally spent this critical care time directly and personally managing the patient. This critical care time included obtaining a history; examining the patient; pulse oximetry; ordering and review of studies; arranging urgent treatment with development of a management plan; evaluation of patient's response to treatment; frequent reassessment; and discussions with other providers. It was exclusive of separately billable procedures and treating other patients and teaching time. Please see Assessment and Plan section and the rest of the note for further information on patient assessment and treatment Subjective Date/time seen: 07/10/24 08:53 Interval history: Reason for consult: Septic shock, UTI, bacteremia 02/08: Transfused 1 unit PRBC 07/10/2024: Pt seen and examined, Is awake, alert in no distress. Denies any pain, SOB, no other complaints. Hemoglobin stable at 9.3 this morning Off Levophed since 2 am last night Adequate urine output, afebrile -patient does state that her blood pressures run low Review of Systems Review of Systems: All systems reviewed & are unremarkable except as noted in HPI and below (Subjective) Exam Narrative: General: Pt is awake alert and no distress Lungs/Chest: Trachea central Clear BS B/L, No crackles or wheezing. Cardiac: RRR. Normal S1 S2. No murmurs Circulation: Bilateral AKA Abdomen: Normal bowel sounds. Obese. Soft. NT. ND. Extremities: bilateral AKA : Kaplan in place Neurologic: Alert awake, A/O x3, followed commands with both upper extremity, facial asymmetry, PERRL Skin: Sacral maceration Objective Data Vital Signs Vital Signs: Vital Signs - 24 hr 07/09/24 09:04 07/09/24 09:30 07/09/24 10:00 Temperature Pulse Rate 82 73 75 Respiratory Rate Blood Pressure 80/56 L 114/95 H 90/62 L Pulse Oximetry Oxygen Delivery 07/09/24 10:00 07/09/24 10:00 07/09/24 10:05 Temperature 98.8 F 98.8 F Pulse Rate 76 76 73 Respiratory Rate 19 19 Blood Pressure 95/69 L 90/62 L Pulse Oximetry 97 97 Oxygen Delivery 07/09/24 10:15 07/09/24 10:32 07/09/24 11:32 Temperature 98.9 F 98.9 F 99.0 F Pulse Rate 79 78 78 Respiratory Rate 20 15 17 Blood Pressure 99/50 L 111/54 L 107/47 L Pulse Oximetry 95 94 96 Oxygen Delivery 07/09/24 12:00 07/09/24 12:00 07/09/24 12:00 Temperature 99.1 F Pulse Rate 77 78 Respiratory Rate 18 Blood Pressure 108/70 107/70 Pulse Oximetry 96 Oxygen Delivery Room Air 07/09/24 12:00 07/09/24 12:24 07/09/24 12:32 Temperature 99.1 F Pulse Rate 78 82 76 Respiratory Rate 21 H Blood Pressure 111/58 L 101/50 L Pulse Oximetry 95 Oxygen Delivery 07/09/24 13:18 07/09/24 13:53 07/09/24 13:53 Temperature 99.1 F Pulse Rate 78 73 73 Respiratory Rate 16 Blood Pressure 117/65 98/49 L 98/49 L Pulse Oximetry 98 Oxygen Delivery 07/09/24 14:00 07/09/24 14:00 07/09/24 16:00 Temperature Pulse Rate 76 76 Respiratory Rate 17 Blood Pressure 102/46 L Pulse Oximetry 98 Oxygen Delivery Room Air 07/09/24 16:00 07/09/24 16:00 07/09/24 16:01 Temperature 99.4 F Pulse Rate 76 81 79 Respiratory Rate Blood Pressure 107/52 L 107/52 L Pulse Oximetry 97 Oxygen Delivery 07/09/24 18:00 07/09/24 18:00 07/09/24 18:00 Temperature 99.3 F Pulse Rate 81 80 82 Respiratory Rate Blood Pressure 104/54 L 104/54 L Pulse Oximetry 94 Oxygen Delivery 07/09/24 20:00 07/09/24 20:00 07/09/24 20:00 Temperature 99.4 F Pulse Rate 81 81 Respiratory Rate 23 H Blood Pressure 93/70 L 93/70 L Pulse Oximetry 98 Oxygen Delivery Room Air 07/09/24 20:00 07/09/24 21:45 07/09/24 22:00 Temperature Pulse Rate 80 78 78 Respiratory Rate Blood Pressure 121/65 99/76 L Pulse Oximetry Oxygen Delivery 07/09/24 22:00 07/09/24 22:00 07/10/24 00:00 Temperature 99.4 F Pulse Rate 78 78 Respiratory Rate 18 Blood Pressure 99/76 L Pulse Oximetry 98 Oxygen Delivery Room Air 07/10/24 00:00 07/10/24 00:00 07/10/24 00:00 Temperature 99.2 F Pulse Rate 76 77 77 Respiratory Rate 18 Blood Pressure 124/49 L 124/49 L Pulse Oximetry 98 Oxygen Delivery 07/10/24 02:00 07/10/24 02:00 07/10/24 02:00 Temperature 99.0 F Pulse Rate 76 76 76 Respiratory Rate 18 Blood Pressure 111/73 111/73 Pulse Oximetry 97 Oxygen Delivery 07/10/24 04:00 07/10/24 04:00 07/10/24 04:00 Temperature 98.6 F Pulse Rate 76 76 Respiratory Rate 19 Blood Pressure 83/62 L 86/62 L Pulse Oximetry 96 Oxygen Delivery Room Air 07/10/24 04:00 07/10/24 06:00 07/10/24 06:00 Temperature 98.6 F Pulse Rate 79 75 75 Respiratory Rate 18 Blood Pressure 100/52 L 100/52 L Pulse Oximetry 97 Oxygen Delivery 07/10/24 06:00 07/10/24 07:30 07/10/24 08:03 Temperature 98.7 F Pulse Rate 76 82 Respiratory Rate 19 Blood Pressure 93/57 L Pulse Oximetry 94 Oxygen Delivery 07/10/24 08:10 Temperature Pulse Rate Respiratory Rate Blood Pressure 90/66 L Pulse Oximetry Oxygen Delivery Intake/Output Intake/Output: Intake & Output 07/07/24 07/08/24 07/09/24 07/10/24 23:59 23:59 23:59 23:59 Intake Total 2571.1 1936.6 2228.0 880.6 Output Total 1325 1925 950 400 Balance 1246.1 11.6 1278.0 480.6 Meds/Results Medications: Active Medications Generic Name Dose Route Start Last Admin Trade Name Freq PRN Reason Stop Dose Admin Acetaminophen 650 mg 07/06/24 21:49 Acetaminophen 650 Mg Suppository RECTAL Q6H PRN Mild Pain (1-3) or Fever Bisacodyl 10 mg 07/08/24 08:56 Bisacodyl 10 Mg Suppository RECTAL QAM PRN Constipation Cyanocobalamin 1,000 mcg 07/07/24 09:00 07/09/24 07:47 Cyanocobalamin 1,000 Mcg Tablet PO 1,000 mcg DAILY KASIE Administration Dextrose 12.5 gm 07/06/24 23:43 Dextrose 50% 25 Gm/50 Ml Syringe IV PUSH PRN PRN Hypoglycemia Protocol Enoxaparin Sodium 40 mg 07/09/24 09:00 07/09/24 08:18 Enoxaparin 40 Mg/0.4 Ml Syringe SUB-Q Not Given DAILY KASIE Glucagon 1 mg 07/06/24 23:43 Glucagon For Inj 1 Mg Vial IM PRN PRN Hypoglycemia Protocol Glucose 15 gm 07/06/24 23:43 Glucose Oral Gel 15 Gm Of Glucse In 37.5 Gm Tube PO PRN PRN Hypoglycemia Protocol Dextrose 1,000 mls @ 100 mls/hr 07/06/24 23:43 Dextrose 5% 1,000 Ml IVPB PRN PRN Hypoglycemia Protocol Fluconazole 200 mg in 100 mls @ 100 mls/hr 07/07/24 09:00 07/09/24 09:15 Diflucan 200 Mg/Nacl 100 Ml IVPB 07/21/24 08:59 Infused DAILY KASIE Infusion Norepinephrine Bitartrate 8 mg in 250 mls @ 0 mls/hr 07/09/24 07:10 07/10/24 06:00 Levophed 8 Mg/D5w 250 Ml IV CONT 0 mcg/min .Q0M KASIE 0 mls/hr Titration Protocol 0 MCG/MIN Ampicillin Sodium/Sulbactam Sodium 3 gm in 100 mls @ 200 mls/hr 07/09/24 09:00 07/10/24 05:54 Unasyn 3 Gm/Ns 100 Ml IVPB Infused Q4HR KASIE Infusion Insulin Aspart 2 - 5 units 07/07/24 09:00 07/10/24 05:35 Insulin Aspart (*Bkc) 100 Units/Ml SUB-Q Not Given Q4HR [facility] Protocol Levothyroxine Sodium 100 mcg 07/07/24 06:30 07/10/24 05:35 Levothyroxine Sodium 100 Mcg Tablet PO 100 mcg DAILY@0630 KASIE Administration Minocycline HCl 200 mg 07/08/24 10:50 07/09/24 20:54 Minocycline Hcl 100 Mg Capsule PO 200 mg Q12HR KASIE Administration Mupirocin 1 applic 07/07/24 09:00 07/09/24 20:56 Mupirocin 2% Oint 22 Gm Tube EACH NARE 07/11/24 21:01 1 applic Q12HR KASIE Administration Pantoprazole Sodium 40 mg 07/07/24 09:00 07/09/24 07:47 Pantoprazole Sodium Iv 40 Mg Vial IV PUSH 40 mg QAM KASIE Administration Sodium Chloride 10 ml 07/06/24 22:00 07/10/24 05:26 Central Line Flush IV PUSH 10 ml Q8HR KASIE Administration Sodium Chloride 20 ml 07/06/24 19:24 Central Line Flush IV PUSH PRN PRN after blood draws Tramadol HCl 50 mg 07/06/24 23:29 07/09/24 20:54 Tramadol Hcl (*Crx) 50 Mg Tablet PO 50 mg Q8H PRN Administration pain 4-10 Vancomycin HCl 125 mg 07/07/24 00:00 07/10/24 05:24 Vancomycin Hcl 125 Mg Oral Capsule PO 07/17/24 00:00 125 mg Q6HR KASIE Administration Radiology Results: ITS Impressions Chest X-Ray 07/06/24 18:54 IMPRESSION: Bilateral perihilar pneumonia. The left central line tip is noted at the junction of the superior vena cava and left brachiocephalic vein. Head CT 07/06/24 19:40 IMPRESSION: No acute intracranial findings. Chest/Abdomen/Pelvis CT 07/06/24 21:16 IMPRESSION: CHEST: 1. Cardiomegaly with pericardial effusion. 2. No evidence of pneumonia or pneumothorax. 3. Right anterior chest wall seroma versus breast implant. ABDOMEN/PELVIS: 1. No evidence of appendicitis, diverticulitis or intestinal obstruction. 2. Thickened wall of the rectum which may indicate proctitis. Clinical correlation advised. 3. Air seen in the left pelvicalyceal system with hydronephrotic changes. Infection cannot be excluded. Further evaluation advised. 4. Seen in the area bladder with Kaplan's catheter. 5. Seroma in the anterior abdominal wall with wall calcification. Labs Labs: Laboratory Results - last 24 hr 07/09/24 07/09/24 07/09/24 08:43 11:37 15:22 WBC RBC Hgb 9.3 L Hct 30.2 L MCV MCH MCHC RDW Plt Count MPV Immature Gran % (Auto) Neut % (Auto) Lymph % (Auto) Rice % (Auto) Eos % (Auto) Baso % (Auto) Lymph # (Auto) Rice # (Auto) Eos # (Auto) Baso # (Auto) Abs Immat Gran (auto) Absolute Neuts (auto) Absolute Nucleated RBC Nucleated RBC % Sodium Potassium Chloride Carbon Dioxide Anion Gap BUN Creatinine Estim Creat Clear Calc Estimated GFR Glucose POC Capillary Glucose 223 H Lactic Acid Calcium Phosphorus Magnesium Total Bilirubin AST ALT Alkaline Phosphatase Total Protein Albumin Blood Type O Positive Antibody Screen Negative Crossmatch See Detail 07/09/24 07/09/24 07/09/24 16:38 20:52 23:37 WBC RBC Hgb Hct MCV MCH MCHC RDW Plt Count MPV Immature Gran % (Auto) Neut % (Auto) Lymph % (Auto) Rice % (Auto) Eos % (Auto) Baso % (Auto) Lymph # (Auto) Rice # (Auto) Eos # (Auto) Baso # (Auto) Abs Immat Gran (auto) Absolute Neuts (auto) Absolute Nucleated RBC Nucleated RBC % Sodium Potassium Chloride Carbon Dioxide Anion Gap BUN Creatinine Estim Creat Clear Calc Estimated GFR Glucose POC Capillary Glucose 169 H 202 H 151 H Lactic Acid Calcium Phosphorus Magnesium Total Bilirubin AST ALT Alkaline Phosphatase Total Protein Albumin Blood Type Antibody Screen Crossmatch 07/10/24 07/10/24 07/10/24 05:33 06:15 07:15 WBC 8.0 RBC 3.14 L Hgb 9.3 L Hct 30.0 L MCV 95.5 D MCH 29.6 MCHC 31.0 L RDW 18.0 H Plt Count 167 MPV 9.6 Immature Gran % (Auto) 0.4 Neut % (Auto) 70.4 Lymph % (Auto) 17.0 L Rice % (Auto) 7.5 Eos % (Auto) 3.8 Baso % (Auto) 0.9 Lymph # (Auto) 1.36 Rice # (Auto) 0.6 Eos # (Auto) 0.3 Baso # (Auto) 0.1 Abs Immat Gran (auto) 0.03 Absolute Neuts (auto) 5.6 Absolute Nucleated RBC 0.000 Nucleated RBC % 0.0 Sodium 140 Potassium 4.0 Chloride 105 Carbon Dioxide 19 L Anion Gap 16 H BUN 43 H Creatinine 1.10 H Estim Creat Clear Calc 31 Estimated GFR 49 L Glucose 105 POC Capillary Glucose 105 106 H Lactic Acid 0.8 Calcium 8.0 L Phosphorus 3.6 Magnesium 1.7 Total Bilirubin 1.2 AST 24 ALT 13 Alkaline Phosphatase 46 Total Protein 8.0 Albumin 4.0 Blood Type Antibody Screen Crossmatch Quality VTE Prophylaxis VTE prophylaxis: pharmacologic ordered (Lovenox 30 mg subQ daily.)
[2024-07-10] MEDS: MINOCYCLINE HCL 100 MG CAPSULE 200 MG PO (08:54)
[2024-07-10] MEDS: CYANOCOBALAMIN 1,000 MCG TABLET 1000 MCG PO (08:54)
[2024-07-10] MEDS: PANTOPRAZOLE SODIUM IV 40 MG VIAL IV PUSH (08:55)
[2024-07-10] MEDS: ENOXAPARIN 40 MG/0.4 ML SYRINGE SUB-Q (08:56)
[2024-07-10] MEDS: MUPIROCIN 2% OINT 22 GM TUBE 1 APPLIC EACH NARE ×2 (08:56→21:36)
[2024-07-10] MEDS: FLUCONAZOLE 200 MG/NACL 100 ML 200 MG/100 ML BAG 100 MG IVPB (08:57)
--- NOTE | 2024-07-10 11:20 | PCFNICU ---
ICU Rounding Note: Pt current nutrition is Soft and Bite Sized, Level 6/DBCC with Glucerna shakes BID. Last recorded weight is 59.1 kg, down from 62 kg on admit. Bowel Motility: +BM reported 07/10 Labs Reviewed:Cr 1.10, BUN 43, Hct 30.0, Hgb 9.3 Meds Noted:Protonix, Lovenox, Vit B12, NovoLog, Synthroid. Skin: WNL Additional Notes: Patient is tolerating soft and bite sized, Level 6/DBCC diet. Glucerna shakes providing an additional 240 kcal and 10 gm protein. Agree with diet orders. Following daily in ICU rounds. Will monitor weight, labs, skin, diet orders, meds every 5 days.
--- NOTE | 2024-07-10 11:30 | PM.CNCAR ---
Assessment and Plan Assessment and plan (1) Combined systolic and diastolic congestive heart failure: Qualifiers: Heart failure chronicity: acute on chronic Qualified Code(s): I50.43 - Acute on chronic combined systolic (congestive) and diastolic (congestive) heart failure Code(s): I50.40 - Unspecified combined systolic (congestive) and diastolic (congestive) heart failure Status: Acute Plan 1. UTI/Sepsis/septic shock 2. Chronic compensated systolic heart failure 3. HTN 4. PAD s/p B/L AKA TTE (07/08/2024) LVEF 25-30%., hpokinesis anterosptum. LVE, gd II DD, mild-mod AD YAMIL 1.33, VMAx 163, MG 7; mod PHTN PASP 52 mmhg, small pericardial effusion -she is post bilateral above-knee amputation, is bedbound -Continued to HOLD GDMT for HF, blood pressure is soft -will reinitiate GDMT based on her blood pressure when she is out of the unit. - Avoid SGLT2 as she had recent UTI - She had declined a invasive evaluation in the past History of Present Illness History of Present Illness Consult date/time: 07/10/24 11:30 Reason For Visit: Septic shock, Urinary tract infection Narrative: Ms Iris Pascual is a 67-year-old female with a history of breast cancer s/p surgery/chemoradiation, bilateral AKA, type 2 diabetes, hypertension, GERD who was seen previously by cardiology when she was admitted with CHF. Her TTE showed an LVEF 20-25%. She declined an invasive evaluation and was discharged on GDMT. She has been admitted with UTI, sepsis septic shock. She was on pressors which has been weaned Repeat TTE (07/08/2024) shows the EF 25-30%, hypokinetic anterior septum, large to critical, grade 2 diastolic dysfunction, mild MR, mild-mod or heart failure, however, patient declined. We had started her on GDMT with Josh Martinez, Meddimax. TTE (07/08/2024) 1. Left ventricular systolic function is normal, estimated at 25-30%. hpokinesis anterosptum. 2. Left ventricular chamber dimension is mildly enlarged. 3. The left ventricular diastolic function is grade II diastolic dysfunction. 4. Right ventricular chamber dimension is normal. 5. Right ventricular systolic function is reduced. 6. There is mild to moderate aortic valve stenosis with a peak velocity of 163.15 cm/s, mean gradient of 7 mmHg, and aortic valve area of 1.33 cm2. 7. There is mild aortic valve calcification. 8. There is mild aortic valve regurgitation. 9. There is mild mitral valve calcification. 10. There is mild tricuspid valve regurgitation. 11. Moderate pulmonary hypertension, estimated pulmonary arterial systolic pressure is 52 mmHg. 12. There is mild pulmonic regurgitation. 13. There is small pericardial effusion. Review of Systems Review of Systems: Do the patient's history of dementia and acute metabolic encephalopathy she is unable to provide meaningful history and review of systems is unreliable. All systems reviewed & are unremarkable except as noted in HPI and below (Subjective) ROS unobtainable: Yes unobtainable due to medical condition and unobtainable due to mental status PMFSH Past Medical History Medical History Chronic indwelling Kaplan catheter CKD (chronic kidney disease) stage 3, GFR 30-59 ml/min With baseline creatinine between 1.3 and 1.6 Iron deficiency anemia History of ESBL E. coli infection Recurrent Clostridioides difficile infection Anemia Pneumonia Stercoral colitis Urinary tract infection due to extended-spectrum beta lactamase (ESBL) producing Escherichia coli Type 2 diabetes mellitus Hypertension C. difficile diarrhea (01/2024) Gastroesophageal reflux disease History of breast cancer Thyroid cancer Hyperlipidemia Peripheral vascular disease Non-STEMI (non-ST elevated myocardial infarction) Combined systolic and diastolic congestive heart failure Echo 01/2024 demonstrated stable systolic dysfunction with EF of 25-30% but worsening diastolic function with grade 3-4 dysfunction with elevated left atrial pressures, mild right ventricular enlargement with hypokinesis of the right ventricle, mild aortic stenosis with mild aortic regurgitation, mild pulmonary hypertension with RVSP of 41 with [id number] pericardial effusion among other abnormalities Neuropathy Psychiatric disorder Dementia Surgical History Surgical History History of thyroidectomy History of ventral hernia repair With chronic calcified seroma History of above-knee amputation of both lower extremities History of right breast implant Patient reports that it was radiation implant History of lumpectomy of left breast Family History Family History Mother Family history of type 2 diabetes mellitus, Onset Age: 55 Father Acute myocardial infarction, Onset Age: 58 Social History Social History Social History: Surrogate medical decision maker: Ailyn Turner, daughter. Code status: Do not resuscitate with selective treatment (paperwork accompanies the patient). Smoking status: Unknown if ever smoked Second hand tobacco smoke exposure: No Alcohol intake: unknown Substance use: unknown Substance use type: does not use Do You Feel Safe in your Home?: Yes Lack of Transportation: No Lack of Food: Never True Current Housing: I Have Housing Concerned About Future Housing: No Difficulty Paying Gas/Electric Bills: No Difficulty Paying for Meds: No Currently Unemployed: No Education: High School Diploma/GED Difficulty w/ Childcare or Family Care: No Spiritual care concerns: No Meds Home Medications and Allergies Home Medications ?Medication ?Instructions ?Recorded ?Confirmed ?Type atorvastatin 40 mg tablet 40 mg PO HS 12/05/21 07/06/24 History levothyroxine 100 mcg tablet 100 mcg PO DAILY 12/05/21 07/06/24 History gabapentin 300 mg capsule 300 mg PO TID 05/16/22 07/06/24 History potassium chloride 10 mEq 10 meq PO DAILY 05/16/22 07/06/24 History capsule,extended release furosemide 40 mg tablet (Lasix) 60 mg PO BID 01/10/24 07/06/24 History carvedilol 6.25 mg tablet (Coreg) 6.25 mg PO BID 01/30/24 07/06/24 History sacubitril 24 mg-valsartan 26 mg 1 tablet PO Q12H 01/30/24 07/06/24 History tablet (Entresto) tramadol 50 mg tablet 50 mg PO Q8H PRN pain 01/30/24 07/06/24 History magnesium citrate (Citroma oral 150 ml PO DAILY PRN Constipation 02/15/24 07/06/24 History solution) magnesium hydroxide 400 mg/5 mL 400 mg PO HS PRN Constipation 02/15/24 07/06/24 History oral suspension (Milk of Magnesia) sodium phosphates 19 gram-7 118 ml RECTAL DAILY PRN 02/15/24 07/06/24 History gram/118 mL enema (Fleet Enema) Constipation ferrous sulfate 325 mg (65 mg 325 mg PO BID #90 tabs 02/29/24 07/06/24 Rx iron) tablet,delayed release acetaminophen 325 mg capsule 650 mg PO Q4H PRN pain 05/04/24 07/06/24 History calcium 600 mg (as 1 cap PO DAILY 05/04/24 07/06/24 History carbonate)-vitamin D3 5 mcg (200 unit) capsule (Calcium 600 + D(3)) cyanocobalamin (vitamin B-12) 1,000 mcg PO DAILY 05/04/24 07/06/24 History 1,000 mcg capsule multivitamin,tx-minerals 1 cap PO DAILY 05/04/24 07/06/24 History (Multi-Vitamin HP/Minerals capsule) spironolactone 25 mg tablet 25 mg PO DAILY 05/04/24 07/06/24 History pantoprazole 40 mg tablet,delayed 40 mg PO HS 8 weeks #56 tabs 05/07/24 07/06/24 Rx release (Protonix) bisacodyl 10 mg rectal suppository 10 mg RECTAL DAILY PRN constipation 07/06/24 07/06/24 History empagliflozin 10 mg tablet 10 mg PO DAILY 07/06/24 07/06/24 History (Jardiance) insulin aspart U-100 100 unit/mL See Rx Instructions .Route .COMPLEX 07/06/24 07/06/24 History subcutaneous solution (Novolog U-100 Insulin aspart) Allergies Allergy/AdvReac Type Severity Reaction Status Date / Time codeine Allergy Unknown Verified 05/21/24 10:56 Vital Signs Vital Signs - 24 hr 07/09/24 11:32 07/09/24 12:00 07/09/24 12:00 Temperature 37.2 C 37.3 C Pulse Rate 78 77 78 Respiratory Rate 17 18 Blood Pressure 107/47 L 108/70 107/70 Pulse Oximetry 96 96 Oxygen Delivery 07/09/24 12:00 07/09/24 12:00 07/09/24 12:24 Temperature Pulse Rate 78 82 Respiratory Rate Blood Pressure 111/58 L Pulse Oximetry Oxygen Delivery Room Air 07/09/24 12:32 07/09/24 13:18 07/09/24 13:53 Temperature 37.3 C 37.3 C Pulse Rate 76 78 73 Respiratory Rate 21 H 16 Blood Pressure 101/50 L 117/65 98/49 L Pulse Oximetry 95 98 Oxygen Delivery 07/09/24 13:53 07/09/24 14:00 07/09/24 14:00 Temperature Pulse Rate 73 76 76 Respiratory Rate 17 Blood Pressure 98/49 L 102/46 L Pulse Oximetry 98 Oxygen Delivery 07/09/24 16:00 07/09/24 16:00 07/09/24 16:00 Temperature 37.4 C Pulse Rate 76 81 Respiratory Rate Blood Pressure 107/52 L Pulse Oximetry 97 Oxygen Delivery Room Air 07/09/24 16:01 07/09/24 18:00 07/09/24 18:00 Temperature Pulse Rate 79 81 80 Respiratory Rate Blood Pressure 107/52 L 104/54 L Pulse Oximetry Oxygen Delivery 07/09/24 18:00 07/09/24 20:00 07/09/24 20:00 Temperature 37.4 C 37.4 C Pulse Rate 82 81 81 Respiratory Rate 23 H Blood Pressure 104/54 L 93/70 L 93/70 L Pulse Oximetry 94 98 Oxygen Delivery 07/09/24 20:00 07/09/24 20:00 07/09/24 21:45 Temperature Pulse Rate 80 78 Respiratory Rate Blood Pressure 121/65 Pulse Oximetry Oxygen Delivery Room Air 07/09/24 22:00 07/09/24 22:00 07/09/24 22:00 Temperature 37.4 C Pulse Rate 78 78 78 Respiratory Rate 18 Blood Pressure 99/76 L 99/76 L Pulse Oximetry 98 Oxygen Delivery 07/10/24 00:00 07/10/24 00:00 07/10/24 00:00 Temperature 37.3 C Pulse Rate 76 77 Respiratory Rate 18 Blood Pressure 124/49 L Pulse Oximetry 98 Oxygen Delivery Room Air 07/10/24 00:00 07/10/24 02:00 07/10/24 02:00 Temperature 37.2 C Pulse Rate 77 76 76 Respiratory Rate 18 Blood Pressure 124/49 L 111/73 Pulse Oximetry 97 Oxygen Delivery 07/10/24 02:00 07/10/24 04:00 07/10/24 04:00 Temperature 37.0 C Pulse Rate 76 76 76 Respiratory Rate 19 Blood Pressure 111/73 83/62 L 86/62 L Pulse Oximetry 96 Oxygen Delivery 07/10/24 04:00 07/10/24 04:00 07/10/24 06:00 Temperature 37.0 C Pulse Rate 79 75 Respiratory Rate 18 Blood Pressure 100/52 L Pulse Oximetry 97 Oxygen Delivery Room Air 07/10/24 06:00 07/10/24 06:00 07/10/24 07:30 Temperature Pulse Rate 75 76 Respiratory Rate Blood Pressure 100/52 L 93/57 L Pulse Oximetry Oxygen Delivery 07/10/24 08:03 07/10/24 08:10 07/10/24 10:00 Temperature 37.1 C 36.8 C Pulse Rate 82 78 Respiratory Rate 19 21 H Blood Pressure 90/66 L 100/52 L Pulse Oximetry 94 94 Oxygen Delivery Exam Narrative: General: Pt is awake alert and no distress Lungs/Chest: Trachea central Clear BS B/L, No crackles or wheezing. Cardiac: RRR. Normal S1 S2. No murmurs Circulation: Bilateral AKA Abdomen: Normal bowel sounds. Obese. Soft. NT. ND. Extremities: bilateral AKA : Kaplan in place Neurologic: Alert awake, A/O x3, followed commands with both upper extremity, facial asymmetry, PERRL Skin: Sacral maceration Const: Other: Acute on Chronically ill-appearing, obese, debilitated, appears older than stated age HENMT: Other: Head is normocephalic atraumatic, mucous membranes are dry, edentulous in upper and lower jaw Eyes: Other: Pupils are equal and reactive, positive conjunctival pallor, no scleral icterus Neck: Other: No JVD, large neck circumference, left triple-lumen IJ in place Resp: Other: Decreased breath sounds throughout, no tachypnea Cardio: Other: Regular rate, regular rhythm, 2+ bilateral radial pulses, 2+ bilateral femoral pulses, no JVD GI: Other: Distended, nontender, large protrusion of anterior abdominal wall is firm, nontender, hypoactive bowel sounds : Other: Temperature probe Kaplan in place, urine appears milky but pale yellow Skin: Other: Patient has some small stage II decubitus ulcers to the buttock and upper medial thighs, multiple areas of scarring from prior healed decubitus ulcers the largest of which is on the right posterior thigh at the base of the buttock, previously healed ulcer at the posterior right labia, dried flaking skin from the bilateral lower extremity stumps Neuro: Other: Patient is little lethargic and difficult to arouse but once awake is oriented to person, place and year, she thought the month was September, she is slow to respond in only intermittently follows commands Extrem: Other: Bilateral [id number] amputations no wounds to the stumps, 3 to 4/5 computer compositor strength bilateral, no clubbing, no cyanosis Psych: Other: Pleasantly confused, cooperative, poor judgment and insight Results Labs and Meds 07/10/24 06:15 07/10/24 06:15 Lab results: Cardiac Enzymes 07/10/24 Range/Units 06:15 AST 24 (14-36) U/L CBC 07/09/24 07/10/24 Range/Units 15:22 06:15 WBC 8.0 (4.5-10.0) K/mm3 RBC 3.14 L (4.2-5.4) M/mm3 Hgb 9.3 L 9.3 L (12.0-15.0) g/dL Hct 30.2 L 30.0 L (37.0-47.0) % Plt Count 167 (150-375) k/mm3 Lymph # (Auto) 1.36 (0.9-3.2) K/mm3 [place] # (Auto) 0.6 (0.1-0.6) K/mm3 Eos # (Auto) 0.3 (0-0.3) K/mm3 Baso # (Auto) 0.1 (0.0-0.1) K/mm3 Comprehensive Metabolic Panel 07/10/24 Range/Units 06:15 Sodium 140 (137-145) mmol/L Potassium 4.0 (3.4-5.0) mmol/L Chloride 105 (98-107) mmol/L Carbon Dioxide 19 L (22-30) mmol/L BUN 43 H (7-17) mg/dL Creatinine 1.10 H (0.7-1.0) mg/dL Glucose 105 (65-110) mg/dL Calcium 8.0 L (8.4-10.2) mg/dL AST 24 (14-36) U/L ALT 13 (6-35) U/L Alkaline Phosphatase 46 (38-126) U/L Total Protein 8.0 (6.3-8.2) g/dL Albumin 4.0 (3.5-5.1) g/dL Intake and Output 07/09/24 07/10/24 07/10/24 23:59 07:59 15:59 Intake Total 470.0 407.6 673 Output Total 450 400 Balance 20.0 7.6 673 Intake: IV 230.0 207.6 200 Norepinephrine 8 mg/D5w 250 ml 30.0 7.6 8 mg In 250 ml @ 0 MCG/MIN IV CONT .Q0M [facility] Rx#:[id number] Ampicillin Sulb 3 gm/Ns 100 ml 200 200 100 3 gm In 100 ml @ 200 mls/hr IVPB Q4HR [facility] Rx#:[id number] Fluconazole 200 mg/NaCl 100 ml 100 200 mg In 100 ml @ 100 mls/hr IVPB DAILY [facility] Rx#:[id number] Oral 240 200 236 Oral Supplement 237 Output: Catheter Urine 450 400 Urethral Catheter 450 400 Other: Number of Bowel Movements Today 1 1 Patient Weight 07/10/24 23:59 Weight 59.1 kg
[2024-07-10 11:32] LABS: Glucose Point of Care 180 mg/dl (65-105)
[2024-07-10] MEDS: SODIUM BICARBONATE TAB 325 MG TABLET PO ×2 (12:20→16:35)
[2024-07-10 16:13] LABS: Glucose Point of Care 216 mg/dl (65-105)
[2024-07-10] MEDS: traMADol HCL (*CRX) 50 MG TABLET PO (16:34)
[2024-07-10] MEDS: INSULIN ASPART (*BKC) 100 UNITS/ML SUB-Q (16:37)
[2024-07-10 21:47] LABS: Glucose Point of Care 165 mg/dl (65-105)
[2024-07-11] VITALS (7 sets, daily range): BP systolic 112–151; BP diastolic 43–63; PULSE 79–81; RESP 12–18; TEMP 36.5–37.3; O2SAT 96–100
[2024-07-11] MEDS: VANCOMYCIN HCL 125 MG ORAL CAPSULE PO ×4 (00:15→17:29)
[2024-07-11] MEDS: AMPICILLIN SULB 3 GM/NS 100 ML 3 GM/100 ML VIAL IVPB ×3 (02:00→08:08)
[2024-07-11 05:52] LABS: Hematocrit 29.8 % (37.0-47.0); Hemoglobin 8.9 g/dL (12.0-15.0); Mean Corpuscular HGB Conc 29.9 g/dl (32-36); Mean Corpuscular Hemoglobin 29.1 pg (26-34); Mean Corpuscular Volume 97.4 fl (80-100); Platelet Count Result 159 k/mm3 (150-375); Red Blood Count 3.06 M/mm3 (4.2-5.4); Red Cell Distribution Width 17.6 % (11.5-14.5); White Blood Count 6.8 K/mm3 (4.5-10.0)
[2024-07-11] MEDS: CENTRAL LINE FLUSH 10 ML IV PUSH ×3 (05:54→21:26)
[2024-07-11 06:03] LABS: Alanine Aminotransferase 14 U/L (6-35); Albumin Level 3.7 g/dL (3.5-5.1); Alkaline Phosphatase 53 U/L (38-126); Anion Gap 19 mmol/L (4-12); Aspartate Amino Transferase 24 U/L (14-36); Bilirubin,Total 1.3 mg/dL (0.2-1.3); Blood Urea Nitrogen 45 mg/dL (7-17); Calcium 7.9 mg/dL (8.4-10.2); Carbon Dioxide 18 mmol/L (22-30); Chloride 105 mmol/L (98-107); Estimated CRCL calculation 30 ml/min; Estimated Glomerular Filt Rate 41; Glucose 169 mg/dL (65-110); Magnesium 1.7 mg/dL (1.6-2.3); Sodium 142 mmol/L (137-145)
[2024-07-11] MEDS: LEVOTHYROXINE SODIUM 100 MCG TABLET PO (06:10)
[2024-07-11] MEDS: SODIUM BICARBONATE TAB 325 MG TABLET PO ×2 (08:08→17:29)
[2024-07-11] MEDS: CYANOCOBALAMIN 1,000 MCG TABLET 1000 MCG PO (08:08)
[2024-07-11] MEDS: PANTOPRAZOLE SODIUM IV 40 MG VIAL IV PUSH (08:08)
[2024-07-11] MEDS: FLUCONAZOLE 200 MG/NACL 100 ML 200 MG/100 ML BAG 100 MG IVPB (08:08)
[2024-07-11] MEDS: MUPIROCIN 2% OINT 22 GM TUBE 1 APPLIC EACH NARE ×2 (08:09→21:26)
[2024-07-11] MEDS: levoFLOXacin 750 MG TABLET PO (11:56)
[2024-07-11 12:22] LABS: Glucose Point of Care 177 mg/dl (65-105)
--- NOTE | 2024-07-11 13:16 | PM.IMPN ---
Progress Note: A&P Assessment and Plan (1) Septic shock: Code(s): A41.9 - Sepsis, unspecified organism; R65.21 - Severe sepsis with septic shock Status: Acute Assessment and Plan: Septic shock secondary to UTI and bacteremia. Patient has a chronic indwelling urinary catheter. Patient also has a history of ESBL. UA is also showing yeast and patient does have history yeast in her urine 07/08: Patient was off Levophed. Will hold further crystalloids. Continue albumin for another [address] scan does not show any stone or obstruction. Kaplan has been changed 07/07 Urine culture growing Criselda glabrata. 07/06: Blood culture growing group G Streptococcus and Acinetobacter baumannii 07/08: Repeat blood cultures: Preliminary blood cultures are negative x2 07/11: Switch fluconazole to p.o. for Criselda glabrata in the urine 07/11: Will switch Unasyn to Levaquin p.o. -continue p.o. vancomycin for possible C diff (2) Combined systolic and diastolic congestive heart failure: Qualifiers: Heart failure chronicity: acute on chronic Qualified Code(s): I50.43 - Acute on chronic combined systolic (congestive) and diastolic (congestive) heart failure Code(s): I50.40 - Unspecified combined systolic (congestive) and diastolic (congestive) heart failure Status: Acute Assessment and Plan: Continue to hold meds at this time due to hypotension Cardiomyopathy with EF of 25-30%, grade 2 diastolic dysfunction and moderate aortic valve stenosis as under. Patient also has moderate pulmonary hypertension -patient does take statin, carvedilol, Jardiance, Entresto, Lasix, spironolactone at the detention for a cardiomyopathy 07/08/2024 echocardiogram: Summary 1. Left ventricular systolic function is normal, estimated at 25-30%. hpokinesis anterosptum. 2. Left ventricular chamber dimension is mildly enlarged. 3. The left ventricular diastolic function is grade II diastolic dysfunction. 4. Right ventricular chamber dimension is normal. 5. Right ventricular systolic function is reduced. 6. There is mild to moderate aortic valve stenosis with a peak velocity of 163.15 cm/s, mean gradient of 7 mmHg, and aortic valve area of 1.33 cm2. 7. There is mild aortic valve calcification. 8. There is mild aortic valve regurgitation. 9. There is mild mitral valve calcification. 10. There is mild tricuspid valve regurgitation. 11. Moderate pulmonary hypertension, estimated pulmonary arterial systolic pressure is 52 mmHg. 12. There is mild pulmonic regurgitation. 13. There is small pericardial effusion. (3) Type 2 diabetes mellitus: Code(s): E11.9 - Type 2 diabetes mellitus without complications Status: Acute Assessment and Plan: Sliding scale insulin Diet ordered (4) Diarrhea: Code(s): R19.7 - Diarrhea, unspecified Status: Acute Assessment and Plan: Patient has chronic constipation and also has diarrhea. Patient was recently diagnosed with C diff associated diarrhea Continue p.o. vancomycin as patient has been started on IV antibiotic Laxatives have been changed to p.r.n. as patient had multiple liquid bowel movements (5) ABDIRASHID (acute kidney injury): Code(s): N17.9 - Acute kidney failure, unspecified Status: Acute Assessment and Plan: Patient has chronic kidney disease with creatinine 1.2-1.4 Presented with creatinine of 2.1 likely secondary to septic shock CT scan does not show any stone or obstruction Monitor urine output electrolytes and creatinine Creatinine back to baseline. Will hold further crystalloids Status post albumin Off Levophed (6) Catheter-associated urinary tract infection: Qualifiers: Indwelling urinary catheter type: indwelling urethral catheter Encounter type: initial encounter Qualified Code(s): T83.511A - Infection and inflammatory reaction due to indwelling urethral catheter, initial encounter; N39.0 - Urinary tract infection, site not specified Code(s): T83.511A - Infection and inflammatory reaction due to indwelling urethral catheter, initial encounter; N39.0 - Urinary tract infection, site not specified Status: Acute Assessment and Plan: See above Catheter was changed the ER (7) C. difficile diarrhea: Onset Date: 01/2024 Code(s): A04.72 - Enterocolitis due to Clostridium difficile, not specified as recurrent Status: Acute Assessment and Plan: See above (8) Acute metabolic encephalopathy: Code(s): G93.41 - Metabolic encephalopathy Status: Acute Assessment and Plan: Exam as above and significantly improved Acute metabolic encephalopathy likely secondary to septic shocks and medications Normal TSH and ammonia level Head CT reviewed Continue to Hold gabapentin and other sedative (9) Abnormal breast finding: Code(s): N64.59 - Other signs and symptoms in breast Status: Acute Assessment and Plan: Patient has a right anterior chest wall seroma versus breast implant on the CT scan. This is a known finding and was evaluated in January of 2024 by general surgery and was found to be not causing issues hence no further treatment was recommended. (10) Metabolic acidosis: Code(s): E87.20 - Acidosis, unspecified Status: Acute Assessment and Plan: Improved with IV fluids with bicarb. Off bicarb (11) Electrolyte abnormality: Code(s): E87.8 - Other disorders of electrolyte and fluid balance, not elsewhere classified Status: Acute Assessment and Plan: Potassium and magnesium improved after replacement (12) Anemia: Code(s): D64.9 - Anemia, unspecified Status: Acute Assessment and Plan: 07/09: Patient dropped hemoglobin to 7.0 this morning, could be related to septic shock -07/09 will transfuse 1 unit of packed RBCs 07/10 and 07/11: Hemoglobin has been stable Continue to monitor Plan DVT prophylaxis -holding Lovenox due to anemia, may restart Lovenox in a.m. if hemoglobin remains stable Stress ulcer prophylaxis -PPI Nutrition -tolerating diabetic diet Code Status -patient is DNR DNI as per her advance directive from detention Total Critical Care Time - 31 minutes Patient can be transferred to medical floor Due to a high probability of clinically significant, life threatening deterioration, the patient required my highest level of preparedness to intervene emergently and I personally spent this critical care time directly and personally managing the patient. This critical care time included obtaining a history; examining the patient; pulse oximetry; ordering and review of studies; arranging urgent treatment with development of a management plan; evaluation of patient's response to treatment; frequent reassessment; and discussions with other providers. It was exclusive of separately billable procedures and treating other patients and teaching time. Please see Assessment and Plan section and the rest of the note for further information on patient assessment and treatment This dictation may have been done utilizing a voice recognition system. Attempts have been made to correct errors. However, there may be uncorrected grammatical, spelling, and recognitions errors present. Subjective Date/time seen: 07/11/24 13:16 Interval history: Reason for consult: Septic shock, UTI, bacteremia 02/08: Transfused 1 unit PRBC 07/11/2024: Patient seen examined in the ICU for hospitalist team -is awake, alert in no distress, denies shortness of breath, chest pain, abdominal pain, nausea vomiting. -hemoglobin has been stable, patient has been off Levophed since 07/10/2024 at 2:00 a.m. -adequate urine output, hemodynamically stable, afebrile Review of Systems Review of Systems: All systems reviewed & are unremarkable except as noted in HPI and below (Subjective) Exam Narrative: General: Pt is awake alert and no distress Lungs/Chest: Trachea central Clear BS B/L, No crackles or wheezing. Cardiac: RRR. Normal S1 S2. No murmurs Circulation: Bilateral AKA Abdomen: Normal bowel sounds. Obese. Soft. NT. ND. Extremities: bilateral AKA : Kaplan in place Neurologic: Alert awake, A/O x3, followed commands with both upper extremity, facial asymmetry, PERRL Skin: Sacral maceration Objective Data Vital Signs Vital Signs: Vital Signs - 24 hr 07/10/24 14:00 07/10/24 14:00 07/10/24 14:00 Temperature 98.7 F Pulse Rate 85 80 78 Respiratory Rate 19 Blood Pressure 105/44 L 105/44 L Pulse Oximetry 97 Oxygen Delivery Fraction of Inspired Oxygen 07/10/24 16:00 07/10/24 16:00 07/10/24 16:00 Temperature 98.8 F Pulse Rate 79 80 Respiratory Rate 17 Blood Pressure 116/71 Pulse Oximetry 95 95 Oxygen Delivery Room Air Fraction of Inspired Oxygen 07/10/24 18:00 07/10/24 20:00 07/10/24 20:00 Temperature Pulse Rate 79 787 H 78 Respiratory Rate 20 Blood Pressure Pulse Oximetry 98 Oxygen Delivery Room Air Fraction of Inspired Oxygen 07/10/24 20:00 07/10/24 21:09 07/10/24 22:00 Temperature 99.1 F Pulse Rate 79 78 80 Respiratory Rate 18 20 Blood Pressure 93/79 L Pulse Oximetry 99 98 Oxygen Delivery Room Air Fraction of Inspired Oxygen 21 07/10/24 23:44 07/10/24 23:46 07/11/24 01:42 Temperature Pulse Rate 81 81 79 Respiratory Rate 20 Blood Pressure Pulse Oximetry 98 Oxygen Delivery Room Air Fraction of Inspired Oxygen 07/11/24 04:00 07/11/24 04:00 07/11/24 04:00 Temperature 99.2 F Pulse Rate 79 79 79 Respiratory Rate 18 18 Blood Pressure 115/54 L Pulse Oximetry 98 98 Oxygen Delivery Room Air Fraction of Inspired Oxygen 21 07/11/24 08:00 07/11/24 08:00 07/11/24 08:00 Temperature 98.8 F Pulse Rate 80 79 Respiratory Rate 12 Blood Pressure 112/53 L Pulse Oximetry 96 96 Oxygen Delivery Room Air Fraction of Inspired Oxygen Intake/Output Intake/Output: Intake & Output 07/08/24 07/09/24 07/10/24 07/11/24 23:59 23:59 23:59 23:59 Intake Total 1936.6 2228.0 1920.6 760 Output Total 1925 950 800 300 Balance 11.6 1278.0 1120.6 460 Meds/Results Medications: Active Medications Generic Name Dose Route Start Last Admin Trade Name Freq PRN Reason Stop Dose Admin Acetaminophen 650 mg 07/06/24 21:49 Acetaminophen 650 Mg Suppository RECTAL Q6H PRN Mild Pain (1-3) or Fever Bisacodyl 10 mg 07/08/24 08:56 Bisacodyl 10 Mg Suppository RECTAL QAM PRN Constipation Cyanocobalamin 1,000 mcg 07/07/24 09:00 07/11/24 08:08 Cyanocobalamin 1,000 Mcg Tablet PO 1,000 mcg DAILY KASIE Administration Dextrose 12.5 gm 07/06/24 23:43 Dextrose 50% 25 Gm/50 Ml Syringe IV PUSH PRN PRN Hypoglycemia Protocol Enoxaparin Sodium 40 mg 07/09/24 09:00 07/10/24 08:56 Enoxaparin 40 Mg/0.4 Ml Syringe SUB-Q 40 mg DAILY KASIE Administration Fluconazole 200 mg 07/12/24 09:00 Fluconazole 100 Mg Tablet PO 07/20/24 09:01 QAM KASIE Glucagon 1 mg 07/06/24 23:43 Glucagon For Inj 1 Mg Vial IM PRN PRN Hypoglycemia Protocol Glucose 15 gm 07/06/24 23:43 Glucose Oral Gel 15 Gm Of Glucse In 37.5 Gm Tube PO PRN PRN Hypoglycemia Protocol Dextrose 1,000 mls @ 100 mls/hr 07/06/24 23:43 Dextrose 5% 1,000 Ml IVPB PRN PRN Hypoglycemia Protocol Insulin Aspart 2 - 5 units 07/11/24 12:00 07/11/24 11:54 Insulin Aspart (*Bkc) 100 Units/Ml SUB-Q Not Given TIDWM KASIE Protocol Levofloxacin 750 mg 07/11/24 12:00 07/11/24 11:56 Levofloxacin 750 Mg Tablet PO 07/21/24 09:01 750 mg Q48HR KASIE Administration Levothyroxine Sodium 100 mcg 07/07/24 06:30 07/11/24 06:10 Levothyroxine Sodium 100 Mcg Tablet PO 100 mcg DAILY@0630 KASIE Administration Mupirocin 1 applic 07/07/24 09:00 07/11/24 08:09 Mupirocin 2% Oint 22 Gm Tube EACH NARE 07/11/24 21:01 1 applic Q12HR KASIE Administration Pantoprazole Sodium 40 mg 07/07/24 09:00 07/11/24 08:08 Pantoprazole Sodium Iv 40 Mg Vial IV PUSH 40 mg QAM KASIE Administration Sodium Bicarbonate 325 mg 07/10/24 09:40 07/11/24 08:08 Sodium Bicarbonate Tab 325 Mg Tablet PO 325 mg BID KASIE Administration Sodium Chloride 10 ml 07/06/24 22:00 07/11/24 05:54 Central Line Flush IV PUSH 10 ml Q8HR KASIE Administration Sodium Chloride 20 ml 07/06/24 19:24 Central Line Flush IV PUSH PRN PRN after blood draws Tramadol HCl 50 mg 07/06/24 23:29 07/10/24 16:34 Tramadol Hcl (*Crx) 50 Mg Tablet PO 50 mg Q8H PRN Administration pain 4-10 Vancomycin HCl 125 mg 07/07/24 00:00 07/11/24 11:56 Vancomycin Hcl 125 Mg Oral Capsule PO 07/17/24 00:00 125 mg Q6HR KASIE Administration Radiology Results: ITS Impressions Chest X-Ray 07/06/24 18:54 IMPRESSION: Bilateral perihilar pneumonia. The left central line tip is noted at the junction of the superior vena cava and left brachiocephalic vein. Head CT 07/06/24 19:40 IMPRESSION: No acute intracranial findings. Chest/Abdomen/Pelvis CT 07/06/24 21:16 IMPRESSION: CHEST: 1. Cardiomegaly with pericardial effusion. 2. No evidence of pneumonia or pneumothorax. 3. Right anterior chest wall seroma versus breast implant. ABDOMEN/PELVIS: 1. No evidence of appendicitis, diverticulitis or intestinal obstruction. 2. Thickened wall of the rectum which may indicate proctitis. Clinical correlation advised. 3. Air seen in the left pelvicalyceal system with hydronephrotic changes. Infection cannot be excluded. Further evaluation advised. 4. Seen in the area bladder with Kaplan's catheter. 5. Seroma in the anterior abdominal wall with wall calcification. Labs Labs: Laboratory Results - last 24 hr 07/10/24 07/10/24 07/11/24 16:10 21:45 05:36 WBC 6.8 RBC 3.06 L Hgb 8.9 L Hct 29.8 L MCV 97.4 MCH 29.1 MCHC 29.9 L RDW 17.6 H Plt Count 159 MPV 10.0 Sodium 142 Potassium 4.0 Chloride 105 Carbon Dioxide 18 L Anion Gap 19 H BUN 45 H Creatinine 1.30 H Estim Creat Clear Calc 30 Estimated GFR 41 L Glucose 169 H POC Capillary Glucose 216 H 165 H Calcium 7.9 L Phosphorus 4.0 Magnesium 1.7 Total Bilirubin 1.3 AST 24 ALT 14 Alkaline Phosphatase 53 Total Protein 8.0 Albumin 3.7 07/11/24 11:47 WBC RBC Hgb Hct MCV MCH MCHC RDW Plt Count MPV Sodium Potassium Chloride Carbon Dioxide Anion Gap BUN Creatinine Estim Creat Clear Calc Estimated GFR Glucose POC Capillary Glucose 177 H Calcium Phosphorus Magnesium Total Bilirubin AST ALT Alkaline Phosphatase Total Protein Albumin Quality VTE Prophylaxis VTE prophylaxis: pharmacologic ordered (Lovenox 30 mg subQ daily.)
--- NOTE | 2024-07-11 15:53 | PC.NURSE ---
This patient, Iris Pascual, was transferred to [[id number]] on 07/11/24 at 1554. Personal belongings sent with patient. Report given to [Loree PALMER]. Appropriate documentation sent with patient.
[2024-07-11 17:04] LABS: Glucose Point of Care 199 mg/dl (65-105)
[2024-07-11 20:44] LABS: Glucose Point of Care 179 mg/dl (65-105)
[2024-07-12] MEDS: VANCOMYCIN HCL 125 MG ORAL CAPSULE PO ×4 (00:20→17:13)
[2024-07-12 04:43] VITALS: BP 149/47; PULSE 78; RESP 18; TEMP 36.5; O2SAT 100
[2024-07-12] MEDS: CENTRAL LINE FLUSH 10 ML IV PUSH ×3 (05:49→19:22)
[2024-07-12] MEDS: LEVOTHYROXINE SODIUM 100 MCG TABLET PO (05:49)
[2024-07-12 06:16] LABS: Basophils Absolute Auto 0.1 K/mm3 (0.0-0.1); Basophils Percent Auto 0.8 % (0.2-1.2); Eosinophils Absolute Auto 0.2 K/mm3 (0-0.3); Eosinophils Percent Auto 2.5 % (0-4.4); Hematocrit 29.1 % (37.0-47.0); Immature Granulocyte Absolute 0.04 K/mm3 (0.00-0.031); Immature Granulocyte Percent A 0.6 % (0-0.5); Lymphocytes Absolute Auto 0.92 K/mm3 (0.9-3.2); Lymphocytes Percent Auto 14.4 % (18.3-44.2); Mean Corpuscular HGB Conc 30.9 g/dl (32-36); Mean Corpuscular Hemoglobin 29.5 pg (26-34); Mean Corpuscular Volume 95.4 fl (80-100); Mean Platelet Volume 9.6 fl (7.4-10.4); Monocytes Absolute Auto 0.5 K/mm3 (0.1-0.6); Monocytes Percent Auto 8.1 % (2.6-8.5); Neutrophils Absolute Auto 4.7 K/mm3 (1.3-6.7); Neutrophils Percent Auto 73.6 % (45.5-73.1); Platelet Count Result 155 k/mm3 (150-375); Red Blood Count 3.05 M/mm3 (4.2-5.4); Red Cell Distribution Width 17.2 % (11.5-14.5); White Blood Count 6.4 K/mm3 (4.5-10.0)
[2024-07-12 06:27] LABS: Alanine Aminotransferase 17 U/L (6-35); Alkaline Phosphatase 48 U/L (38-126); Anion Gap 20 mmol/L (4-12); Aspartate Amino Transferase 29 U/L (14-36); Bilirubin,Total 1.4 mg/dL (0.2-1.3); Blood Urea Nitrogen 50 mg/dL (7-17); Calcium 8.3 mg/dL (8.4-10.2); Carbon Dioxide 15 mmol/L (22-30); Chloride 103 mmol/L (98-107); Estimated CRCL calculation 22 ml/min; Estimated Glomerular Filt Rate 26; Glucose 162 mg/dL (65-110); Magnesium 1.9 mg/dL (1.6-2.3); Phosphorus 4.8 mg/dL (2.5-4.5); Potassium 4.2 mmol/L (3.4-5.0); Sodium 138 mmol/L (137-145)
[2024-07-12 07:36] LABS: Glucose Point of Care 157 mg/dl (65-105)
[2024-07-12 07:39] VITALS: BP 142/69; PULSE 79; RESP 20; TEMP 36.4; O2SAT 99
--- NOTE | 2024-07-12 08:23 | PM.IMPN ---
Progress Note: A&P Assessment and Plan (1) Septic shock: Code(s): A41.9 - Sepsis, unspecified organism; R65.21 - Severe sepsis with septic shock Status: Acute Assessment and Plan: Septic shock secondary to UTI and bacteremia. Patient has a chronic indwelling urinary catheter. Patient also has a history of ESBL. UA is also showing yeast and patient does have history yeast in her urine. Treated with Levophed and crystalloids. 07/08: Patient was off Levophed. CT scan does not show any stone or obstruction. Kaplan has been changed 07/07 Urine culture growing Criselda glabrata. 07/06: Blood culture growing group G Streptococcus and Acinetobacter baumannii 07/08: Repeat blood cultures: Preliminary blood cultures are negative x2 07/11: Switch fluconazole to p.o. for Criselda glabrata in the urine 07/11: Will switch Unasyn to Levaquin p.o. -continue p.o. vancomycin for possible C diff (2) Combined systolic and diastolic congestive heart failure: Qualifiers: Heart failure chronicity: acute on chronic Qualified Code(s): I50.43 - Acute on chronic combined systolic (congestive) and diastolic (congestive) heart failure Code(s): I50.40 - Unspecified combined systolic (congestive) and diastolic (congestive) heart failure Status: Acute Assessment and Plan: Continue to hold meds at this time due to hypotension Cardiomyopathy with EF of 25-30%, grade 2 diastolic dysfunction and moderate aortic valve stenosis as under. Patient also has moderate pulmonary hypertension -patient does take statin, carvedilol, Jardiance, Entresto, Lasix, spironolactone at the [facility] for a cardiomyopathy 07/08/2024 echocardiogram: Summary 1. Left ventricular systolic function is normal, estimated at 25-30%. hpokinesis anterosptum. 2. Left ventricular chamber dimension is mildly enlarged. 3. The left ventricular diastolic function is grade II diastolic dysfunction. 4. Right ventricular chamber dimension is normal. 5. Right ventricular systolic function is reduced. 6. There is mild to moderate aortic valve stenosis with a peak velocity of 163.15 cm/s, mean gradient of 7 mmHg, and aortic valve area of 1.33 cm2. 7. There is mild aortic valve calcification. 8. There is mild aortic valve regurgitation. 9. There is mild mitral valve calcification. 10. There is mild tricuspid valve regurgitation. 11. Moderate pulmonary hypertension, estimated pulmonary arterial systolic pressure is 52 mmHg. 12. There is mild pulmonic regurgitation. 13. There is small pericardial effusion. (3) Type 2 diabetes mellitus: Code(s): E11.9 - Type 2 diabetes mellitus without complications Status: Acute Assessment and Plan: Sliding scale insulin Diet ordered (4) Diarrhea: Code(s): R19.7 - Diarrhea, unspecified Status: Acute Assessment and Plan: Patient has chronic constipation and also has diarrhea. Patient was recently diagnosed with C diff associated diarrhea Continue p.o. vancomycin as patient has been started on IV antibiotic Laxatives have been changed to p.r.n. as patient had multiple liquid bowel movements (5) ABDIRASHID (acute kidney injury): Code(s): N17.9 - Acute kidney failure, unspecified Status: Acute Assessment and Plan: Patient has chronic kidney disease with creatinine 1.2-1.4 Presented with creatinine of 2.1 likely secondary to septic shock CT scan does not show any stone or obstruction Monitor urine output electrolytes and creatinine Creatinine back to baseline. Will hold further crystalloids Status post albumin Off Levophed Creatinine continues to creep up up to 1.89 5/2 rule out obstruction Urine is still milky. Will repeat urine culture Renal ultrasound (6) Catheter-associated urinary tract infection: Qualifiers: Encounter type: initial encounter Indwelling urinary catheter type: indwelling urethral catheter Qualified Code(s): T83.511A - Infection and inflammatory reaction due to indwelling urethral catheter, initial encounter; N39.0 - Urinary tract infection, site not specified Code(s): T83.511A - Infection and inflammatory reaction due to indwelling urethral catheter, initial encounter; N39.0 - Urinary tract infection, site not specified Status: Acute Assessment and Plan: See above Catheter was changed the ER Urine is still milky May need change urine catheter (7) C. difficile diarrhea: Onset Date: 01/2024 Code(s): A04.72 - Enterocolitis due to Clostridium difficile, not specified as recurrent Status: Acute Assessment and Plan: See above (8) Acute metabolic encephalopathy: Code(s): G93.41 - Metabolic encephalopathy Status: Acute Assessment and Plan: Exam as above and significantly improved Acute metabolic encephalopathy likely secondary to septic shocks and medications Normal TSH and ammonia level Head CT reviewed Continue to Hold gabapentin and other sedative (9) Abnormal breast finding: Code(s): N64.59 - Other signs and symptoms in breast Status: Acute Assessment and Plan: Patient has a right anterior chest wall seroma versus breast implant on the CT scan. This is a known finding and was evaluated in January of 2024 by general surgery and was found to be not causing issues hence no further treatment was recommended. (10) Metabolic acidosis: Code(s): E87.20 - Acidosis, unspecified Status: Acute Assessment and Plan: Improved with IV fluids with bicarb. Increase oral bicarb (11) Electrolyte abnormality: Code(s): E87.8 - Other disorders of electrolyte and fluid balance, not elsewhere classified Status: Acute Assessment and Plan: Potassium and magnesium improved after replacement (12) Anemia: Code(s): D64.9 - Anemia, unspecified Status: Acute Assessment and Plan: 07/09: Patient dropped hemoglobin to 7.0 this morning, could be related to septic shock -07/09 will transfuse 1 unit of packed RBCs 07/10 and 07/11: Hemoglobin has been stable Continue to monitor Plan DVT prophylaxis -Lovenox held due to anemia. Restart Stress ulcer prophylaxis -PPI Nutrition -tolerating diabetic diet Code Status -patient is DNR DNI as per her advance directive from [facility] Subjective Date/time seen: 07/12/24 08:23 Interval history: Patient presents to the ICU with septic shock UTI and bacteremia. Off Levophed since 07/10/2024. Labs reviewed. She denies any diarrhea. Appetite is low. Poor p.o. intake per nursing staff. Denies any abdominal pain. Review of Systems Review of Systems: All systems reviewed & are unremarkable except as noted in HPI and below (Subjective) Exam Narrative: General: Pt is awake alert and no distress Lungs/Chest: Trachea central Clear BS B/L, No crackles or wheezing. Cardiac: RRR. Normal S1 S2. No murmurs Circulation: Bilateral AKA Abdomen: Normal bowel sounds. Obese. Soft. NT. Distended. Mass like lump palpable up to umbilicus level Extremities: bilateral AKA : Kaplan in place Neurologic: Alert awake, A/O x3, followed commands with both upper extremity, facial asymmetry, PERRL Skin: Sacral maceration Objective Data Vital Signs Vital Signs: Vital Signs - 24 hr 07/11/24 16:00 07/11/24 19:57 07/11/24 20:00 Temperature 97.7 F 97.9 F Pulse Rate 81 81 81 Respiratory Rate 16 17 17 Blood Pressure 120/63 151/43 H Pulse Oximetry 96 100 100 Oxygen Delivery Room Air Fraction of Inspired Oxygen 21 07/12/24 04:43 07/12/24 07:39 Temperature 97.7 F 97.5 F L Pulse Rate 78 79 Respiratory Rate 18 20 Blood Pressure 149/47 H 142/69 H Pulse Oximetry 100 99 Oxygen Delivery Fraction of Inspired Oxygen Intake/Output Intake/Output: Intake & Output 07/09/24 07/10/24 07/11/24 07/12/24 23:59 23:59 23:59 23:59 Intake Total 2228.0 1920.6 1500 150 Output Total 950 800 450 100 Balance 1278.0 1120.6 1050 50 Meds/Results Medications: Active Medications Generic Name Dose Route Start Last Admin Trade Name Freq PRN Reason Stop Dose Admin Acetaminophen 650 mg 07/06/24 21:49 Acetaminophen 650 Mg Suppository RECTAL Q6H PRN Mild Pain (1-3) or Fever Bisacodyl 10 mg 07/08/24 08:56 Bisacodyl 10 Mg Suppository RECTAL QAM PRN Constipation Cyanocobalamin 1,000 mcg 07/07/24 09:00 07/11/24 08:08 Cyanocobalamin 1,000 Mcg Tablet PO 1,000 mcg DAILY KASIE Administration Dextrose 12.5 gm 07/06/24 23:43 Dextrose 50% 25 Gm/50 Ml Syringe IV PUSH PRN PRN Hypoglycemia Protocol Enoxaparin Sodium 40 mg 07/09/24 09:00 07/10/24 08:56 Enoxaparin 40 Mg/0.4 Ml Syringe SUB-Q 40 mg DAILY KASIE Administration Fluconazole 200 mg 07/12/24 09:00 Fluconazole 100 Mg Tablet PO 07/20/24 09:01 QAM KASIE Glucagon 1 mg 07/06/24 23:43 Glucagon For Inj 1 Mg Vial IM PRN PRN Hypoglycemia Protocol Glucose 15 gm 07/06/24 23:43 Glucose Oral Gel 15 Gm Of Glucse In 37.5 Gm Tube PO PRN PRN Hypoglycemia Protocol Dextrose 1,000 mls @ 100 mls/hr 07/06/24 23:43 Dextrose 5% 1,000 Ml IVPB PRN PRN Hypoglycemia Protocol Insulin Aspart 2 - 5 units 07/11/24 12:00 07/12/24 08:19 Insulin Aspart (*Bkc) 100 Units/Ml SUB-Q Not Given TIDWM [facility] Protocol Levofloxacin 750 mg 07/11/24 12:00 07/11/24 11:56 Levofloxacin 750 Mg Tablet PO 07/21/24 09:01 750 mg Q48HR KASIE Administration Levothyroxine Sodium 100 mcg 07/07/24 06:30 07/12/24 05:49 Levothyroxine Sodium 100 Mcg Tablet PO 100 mcg DAILY@0630 KASIE Administration Pantoprazole Sodium 40 mg 07/07/24 09:00 07/11/24 08:08 Pantoprazole Sodium Iv 40 Mg Vial IV PUSH 40 mg QAM KASIE Administration Sodium Bicarbonate 325 mg 07/10/24 09:40 07/11/24 17:29 Sodium Bicarbonate Tab 325 Mg Tablet PO 325 mg BID KASIE Administration Sodium Chloride 10 ml 07/06/24 22:00 07/12/24 05:49 Central Line Flush IV PUSH 10 ml Q8HR KASIE Administration Sodium Chloride 20 ml 07/06/24 19:24 Central Line Flush IV PUSH PRN PRN after blood draws Tramadol HCl 50 mg 07/06/24 23:29 07/10/24 16:34 Tramadol Hcl (*Crx) 50 Mg Tablet PO 50 mg Q8H PRN Administration pain 4-10 Vancomycin HCl 125 mg 07/07/24 00:00 07/12/24 05:49 Vancomycin Hcl 125 Mg Oral Capsule PO 07/17/24 00:00 125 mg Q6HR KASIE Administration Radiology Results: ITS Impressions Chest X-Ray 07/06/24 18:54 IMPRESSION: Bilateral perihilar pneumonia. The left central line tip is noted at the junction of the superior vena cava and left brachiocephalic vein. Head CT 07/06/24 19:40 IMPRESSION: No acute intracranial findings. Chest/Abdomen/Pelvis CT 07/06/24 21:16 IMPRESSION: CHEST: 1. Cardiomegaly with pericardial effusion. 2. No evidence of pneumonia or pneumothorax. 3. Right anterior chest wall seroma versus breast implant. ABDOMEN/PELVIS: 1. No evidence of appendicitis, diverticulitis or intestinal obstruction. 2. Thickened wall of the rectum which may indicate proctitis. Clinical correlation advised. 3. Air seen in the left pelvicalyceal system with hydronephrotic changes. Infection cannot be excluded. Further evaluation advised. 4. Seen in the area bladder with Kaplan's catheter. 5. Seroma in the anterior abdominal wall with wall calcification. Labs Labs: Laboratory Results - last 24 hr 07/11/24 07/11/24 07/11/24 11:47 17:02 19:54 WBC RBC Hgb Hct MCV MCH MCHC RDW Plt Count MPV Immature Gran % (Auto) Neut % (Auto) Lymph % (Auto) [place] % (Auto) Eos % (Auto) Baso % (Auto) Lymph # (Auto) [place] # (Auto) Eos # (Auto) Baso # (Auto) Abs Immat Gran (auto) Absolute Neuts (auto) Absolute Nucleated RBC Nucleated RBC % Sodium Potassium Chloride Carbon Dioxide Anion Gap BUN Creatinine Estim Creat Clear Calc Estimated GFR Glucose POC Capillary Glucose 177 H 199 H 179 H Calcium Phosphorus Magnesium Total Bilirubin AST ALT Alkaline Phosphatase Total Protein Albumin 07/12/24 07/12/24 06:08 07:23 WBC 6.4 RBC 3.05 L Hgb 9.0 L Hct 29.1 L MCV 95.4 MCH 29.5 MCHC 30.9 L RDW 17.2 H Plt Count 155 MPV 9.6 Immature Gran % (Auto) 0.6 H Neut % (Auto) 73.6 H Lymph % (Auto) 14.4 L [place] % (Auto) 8.1 Eos % (Auto) 2.5 Baso % (Auto) 0.8 Lymph # (Auto) 0.92 [place] # (Auto) 0.5 Eos # (Auto) 0.2 Baso # (Auto) 0.1 Abs Immat Gran (auto) 0.04 H Absolute Neuts (auto) 4.7 Absolute Nucleated RBC 0.000 Nucleated RBC % 0.0 Sodium 138 Potassium 4.2 Chloride 103 Carbon Dioxide 15 L Anion Gap 20 H BUN 50 H Creatinine 1.89 H Estim Creat Clear Calc 22 Estimated GFR 26 L Glucose 162 H POC Capillary Glucose 157 H Calcium 8.3 L Phosphorus 4.8 H Magnesium 1.9 Total Bilirubin 1.4 H AST 29 ALT 17 Alkaline Phosphatase 48 Total Protein 8.0 Albumin 4.0
[2024-07-12] MEDS: FLUCONAZOLE 100 MG TABLET 200 MG PO (08:34)
[2024-07-12] MEDS: CYANOCOBALAMIN 1,000 MCG TABLET 1000 MCG PO (08:34)
[2024-07-12 09:02] VITALS: PULSE 79
[2024-07-12] MEDS: SODIUM BICARBONATE TAB 650 MG TABLET PO ×2 (09:02→17:13)
[2024-07-12] MEDS: carvediloL 6.25 MG TABLET PO (09:02)
[2024-07-12] MEDS: PANTOPRAZOLE SODIUM IV 40 MG VIAL IV PUSH (09:03)
[2024-07-12] MEDS: SODIUM CHLORIDE 0.9% IV 1,000 ML 100 ML IV CONT ×2 (09:03→19:24)
[2024-07-12] MEDS: ENOXAPARIN 30 MG/0.3 ML SYRINGE SUB-Q (09:05)
[2024-07-12 11:42] LABS: Glucose Point of Care 195 mg/dl (65-105)
[2024-07-12 16:00] VITALS: BP 120/36; PULSE 70; RESP 16; TEMP 36.1; O2SAT 100
--- NOTE | 2024-07-12 16:30 | PM.PNCARD ---
Progress Note: A&P Assessment and Plan (1) Acute heart failure: Code(s): I50.9 - Heart failure, unspecified Status: Resolved (2) HTN (hypertension): Code(s): I10 - Essential (primary) hypertension Status: Deleted (3) Diabetes: Code(s): E11.9 - Type 2 diabetes mellitus without complications Status: Deleted (4) S/P AKA (above knee amputation) bilateral: Code(s): Z89.611 - Acquired absence of right leg above knee; Z89.612 - Acquired absence of left leg above knee Status: Acute Plan 1. UTI/Sepsis/septic shock 2. Chronic compensated systolic heart failure 3. HTN 4. PAD s/p B/L AKA TTE (07/08/2024) LVEF 25-30%., hpokinesis anterosptum. LVE, gd II DD, mild-mod AD YAMIL 1.33, VMAx 163, MG 7; mod PHTN PASP 52 mmhg, small pericardial effusion -she is post bilateral above-knee amputation, is bedbound -- Start Coreg and ISDn, monitor BP. Will add hydralazine tomorrow - NO ARNI/ARB/MRA due to renal dysfunction - Avoid SGLT2 as she had recent UTI - She had declined a invasive evaluation in the past Subjective Date/time seen: 07/12/24 16:30 Interval history: No acute events overnight. Patient denies any chest pain, shortness of breath or other cardiac symptoms. Review of Systems Review of Systems: All systems reviewed & are unremarkable except as noted in HPI and below (subjective) Exam Const: General: comfortable and no acute distress Neck: Neck: no JVD Resp: Effort & Inspection: normal respiratory effort Auscultation: clear to auscultation bilaterally Cardio: Rate: regular rate Rhythm: regular rhythm Heart sounds: no murmurs Extrem: General: no edema Psych: Mental Status: mental status grossly normal Objective Data Vital Signs Vital Signs: Vital Signs - 24 hr 07/11/24 19:57 07/11/24 20:00 07/12/24 04:43 Temperature 36.6 C 36.5 C Pulse Rate 81 81 78 Respiratory Rate 17 17 18 Blood Pressure 151/43 H 149/47 H Pulse Oximetry 100 100 100 Oxygen Delivery Room Air Fraction of Inspired Oxygen 21 07/12/24 07:39 07/12/24 09:00 07/12/24 09:02 Temperature 36.4 C L Pulse Rate 79 79 Respiratory Rate 20 Blood Pressure 142/69 H Pulse Oximetry 99 Oxygen Delivery Room Air Fraction of Inspired Oxygen Intake/Output Intake/Output: Intake & Output 07/09/24 07/10/24 07/11/24 07/12/24 23:59 23:59 23:59 23:59 Intake Total 2228.0 1920.6 1500 580 Output Total 950 800 450 100 Balance 1278.0 1120.6 1050 480 Meds/Results Medications: Active Medications Generic Name Dose Route Start Last Admin Trade Name Freq PRN Reason Stop Dose Admin Acetaminophen 650 mg 07/06/24 21:49 Acetaminophen 650 Mg Suppository RECTAL Q6H PRN Mild Pain (1-3) or Fever Bisacodyl 10 mg 07/08/24 08:56 Bisacodyl 10 Mg Suppository RECTAL QAM PRN Constipation Carvedilol 6.25 mg 07/12/24 09:00 07/12/24 09:02 Carvedilol 6.25 Mg Tablet PO 6.25 mg Q12HR KASIE Administration Cyanocobalamin 1,000 mcg 07/07/24 09:00 07/12/24 08:34 Cyanocobalamin 1,000 Mcg Tablet PO 1,000 mcg DAILY KASIE Administration Dextrose 12.5 gm 07/06/24 23:43 Dextrose 50% 25 Gm/50 Ml Syringe IV PUSH PRN PRN Hypoglycemia Protocol Enoxaparin Sodium 30 mg 07/12/24 09:00 07/12/24 09:05 Enoxaparin 30 Mg/0.3 Ml Syringe SUB-Q 30 mg DAILY KASIE Administration Fluconazole 200 mg 07/12/24 09:00 07/12/24 08:34 Fluconazole 100 Mg Tablet PO 07/20/24 09:01 200 mg QAM KASIE Administration Glucagon 1 mg 07/06/24 23:43 Glucagon For Inj 1 Mg Vial IM PRN PRN Hypoglycemia Protocol Glucose 15 gm 07/06/24 23:43 Glucose Oral Gel 15 Gm Of Glucse In 37.5 Gm Tube PO PRN PRN Hypoglycemia Protocol Dextrose 1,000 mls @ 100 mls/hr 07/06/24 23:43 Dextrose 5% 1,000 Ml IVPB PRN PRN Hypoglycemia Protocol Sodium Chloride 1,000 mls @ 100 mls/hr 07/12/24 08:30 07/12/24 09:03 Normal Saline Iv IV CONT 100 mls/hr .Q10H KASIE Administration Insulin Aspart 2 - 5 units 07/11/24 12:00 07/12/24 13:53 Insulin Aspart (*Bkc) 100 Units/Ml SUB-Q Not Given TIDWM [facility] Protocol Levofloxacin 750 mg 07/11/24 12:00 07/11/24 11:56 Levofloxacin 750 Mg Tablet PO 07/21/24 09:01 750 mg Q48HR KASIE Administration Levothyroxine Sodium 100 mcg 07/07/24 06:30 07/12/24 05:49 Levothyroxine Sodium 100 Mcg Tablet PO 100 mcg DAILY@0630 KASIE Administration Pantoprazole Sodium 40 mg 07/07/24 09:00 07/12/24 09:03 Pantoprazole Sodium Iv 40 Mg Vial IV PUSH 40 mg QAM KASIE Administration Sodium Bicarbonate 650 mg 07/12/24 09:00 07/12/24 09:02 Sodium Bicarbonate Tab 650 Mg Tablet PO 650 mg BID KASIE Administration Sodium Chloride 10 ml 07/06/24 22:00 07/12/24 13:57 Central Line Flush IV PUSH 10 ml Q8HR KASIE Administration Sodium Chloride 20 ml 07/06/24 19:24 Central Line Flush IV PUSH PRN PRN after blood draws Tramadol HCl 50 mg 07/06/24 23:29 07/10/24 16:34 Tramadol Hcl (*Crx) 50 Mg Tablet PO 50 mg Q8H PRN Administration pain 4-10 Vancomycin HCl 125 mg 07/07/24 00:00 07/12/24 13:56 Vancomycin Hcl 125 Mg Oral Capsule PO 07/17/24 00:00 125 mg Q6HR KASIE Administration Radiology Results: ITS Impressions Chest X-Ray 07/06/24 18:54 IMPRESSION: Bilateral perihilar pneumonia. The left central line tip is noted at the junction of the superior vena cava and left brachiocephalic vein. Head CT 07/06/24 19:40 IMPRESSION: No acute intracranial findings. Chest/Abdomen/Pelvis CT 07/06/24 21:16 IMPRESSION: CHEST: 1. Cardiomegaly with pericardial effusion. 2. No evidence of pneumonia or pneumothorax. 3. Right anterior chest wall seroma versus breast implant. ABDOMEN/PELVIS: 1. No evidence of appendicitis, diverticulitis or intestinal obstruction. 2. Thickened wall of the rectum which may indicate proctitis. Clinical correlation advised. 3. Air seen in the left pelvicalyceal system with hydronephrotic changes. Infection cannot be excluded. Further evaluation advised. 4. Seen in the area bladder with Kaplan's catheter. 5. Seroma in the anterior abdominal wall with wall calcification. Renal Ultrasound 07/12/24 11:15 IMPRESSION: 1. Normal kidneys without hydronephrosis. Labs Labs: Laboratory Results - last 24 hr 07/11/24 07/11/24 07/12/24 17:02 19:54 06:08 WBC 6.4 RBC 3.05 L Hgb 9.0 L Hct 29.1 L MCV 95.4 MCH 29.5 MCHC 30.9 L RDW 17.2 H Plt Count 155 MPV 9.6 Immature Gran % (Auto) 0.6 H Neut % (Auto) 73.6 H Lymph % (Auto) 14.4 L [place] % (Auto) 8.1 Eos % (Auto) 2.5 Baso % (Auto) 0.8 Lymph # (Auto) 0.92 [place] # (Auto) 0.5 Eos # (Auto) 0.2 Baso # (Auto) 0.1 Abs Immat Gran (auto) 0.04 H Absolute Neuts (auto) 4.7 Absolute Nucleated RBC 0.000 Nucleated RBC % 0.0 Sodium 138 Potassium 4.2 Chloride 103 Carbon Dioxide 15 L Anion Gap 20 H BUN 50 H Creatinine 1.89 H Estim Creat Clear Calc 22 Estimated GFR 26 L Glucose 162 H POC Capillary Glucose 199 H 179 H Calcium 8.3 L Phosphorus 4.8 H Magnesium 1.9 Total Bilirubin 1.4 H AST 29 ALT 17 Alkaline Phosphatase 48 Total Protein 8.0 Albumin 4.0 07/12/24 07/12/24 07:23 11:38 WBC RBC Hgb Hct MCV MCH MCHC RDW Plt Count MPV Immature Gran % (Auto) Neut % (Auto) Lymph % (Auto) [place] % (Auto) Eos % (Auto) Baso % (Auto) Lymph # (Auto) [place] # (Auto) Eos # (Auto) Baso # (Auto) Abs Immat Gran (auto) Absolute Neuts (auto) Absolute Nucleated RBC Nucleated RBC % Sodium Potassium Chloride Carbon Dioxide Anion Gap BUN Creatinine Estim Creat Clear Calc Estimated GFR Glucose POC Capillary Glucose 157 H 195 H Calcium Phosphorus Magnesium Total Bilirubin AST ALT Alkaline Phosphatase Total Protein Albumin
[2024-07-12 16:54] LABS: Glucose Point of Care 175 mg/dl (65-105)
[2024-07-12] MEDS: ISOSORBIDE DINITRATE 10 MG TABLET PO (17:13)
[2024-07-12] MEDS: traMADol HCL (*CRX) 50 MG TABLET PO (19:21)
[2024-07-12] MEDS: carvediloL 12.5 MG TABLET PO (19:22)
[2024-07-12 19:55] VITALS: BP 121/61; PULSE 72; RESP 18; TEMP 36.5; O2SAT 100
[2024-07-12 20:00] VITALS: PULSE 72; RESP 18; O2SAT 100
[2024-07-12 20:25] LABS: Add Urine Microscopic? YES; Appearance Urine Turbid (Clear); Bacteria Urine Rare /hpf; Bilirubin Urine Negative (Negative); Blood Urine 3+ (Negative); Budding Yeast Urine Present /hpf; Color Urine Yellow (Yellow); Glucose Urine UA Trace mg/dL (Negative); Ketones Urine Trace mg/dL (Negative); Leukocyte Esterase Ur 3+ LEU/UL (Negative); Need Manual Microscopic Reviewed; Nitrate Urine Negative (Negative); Protein Urine 3+ mg/dL (Negative); RBC Urine >100 /hpf (0-2); Specific Grav Ur 1.014 (1.001-1.035); Squamous Epithelial Cell Urine Many /hpf (Few); WBC Urine >100 /hpf (0-3); pH Urine 5.5 (5.0-9.0)
[2024-07-13] MEDS: VANCOMYCIN HCL 125 MG ORAL CAPSULE PO ×4 (00:39→16:44)
[2024-07-13 03:18] VITALS: BP 144/66; PULSE 78; RESP 18; TEMP 36.5; O2SAT 98
[2024-07-13] MEDS: CENTRAL LINE FLUSH 10 ML IV PUSH ×3 (05:32→21:36)
[2024-07-13] MEDS: LEVOTHYROXINE SODIUM 100 MCG TABLET PO (05:32)
[2024-07-13] MEDS: SODIUM CHLORIDE 0.9% IV 1,000 ML 100 ML IV CONT (05:34)
[2024-07-13 06:48] LABS: Basophils Percent Auto 0.6 % (0.2-1.2); Eosinophils Absolute Auto 0.2 K/mm3 (0-0.3); Eosinophils Percent Auto 4.9 % (0-4.4); Hematocrit 26.5 % (37.0-47.0); Hemoglobin 8.2 g/dL (12.0-15.0); Immature Granulocyte Absolute 0.03 K/mm3 (0.00-0.031); Immature Granulocyte Percent A 0.6 % (0-0.5); Lymphocytes Absolute Auto 0.89 K/mm3 (0.9-3.2); Lymphocytes Percent Auto 18.3 % (18.3-44.2); Mean Corpuscular HGB Conc 30.9 g/dl (32-36); Mean Corpuscular Hemoglobin 29.5 pg (26-34); Mean Corpuscular Volume 95.3 fl (80-100); Mean Platelet Volume 10.3 fl (7.4-10.4); Monocytes Absolute Auto 0.5 K/mm3 (0.1-0.6); Monocytes Percent Auto 10.3 % (2.6-8.5); Neutrophils Absolute Auto 3.2 K/mm3 (1.3-6.7); Neutrophils Percent Auto 65.3 % (45.5-73.1); Nucleated Red Blood Cells Perc 0.4 % (0.0-0.2); Platelet Count Result 150 k/mm3 (150-375); Red Blood Count 2.78 M/mm3 (4.2-5.4); Red Cell Distribution Width 17.1 % (11.5-14.5); White Blood Count 4.9 K/mm3 (4.5-10.0)
[2024-07-13 06:59] LABS: Alanine Aminotransferase 17 U/L (6-35); Albumin Level 3.6 g/dL (3.5-5.1); Alkaline Phosphatase 43 U/L (38-126); Anion Gap 16 mmol/L (4-12); Aspartate Amino Transferase 29 U/L (14-36); Bilirubin,Total 1.1 mg/dL (0.2-1.3); Blood Urea Nitrogen 51 mg/dL (7-17); Calcium 7.8 mg/dL (8.4-10.2); Carbon Dioxide 15 mmol/L (22-30); Chloride 104 mmol/L (98-107); Estimated CRCL calculation 21 ml/min; Estimated Glomerular Filt Rate 25; Glucose 147 mg/dL (65-110); Magnesium 1.7 mg/dL (1.6-2.3); Potassium 3.9 mmol/L (3.4-5.0); Sodium 135 mmol/L (137-145)
[2024-07-13 08:09] LABS: Glucose Point of Care 141 mg/dl (65-105)
[2024-07-13] MEDS: ENOXAPARIN 30 MG/0.3 ML SYRINGE SUB-Q (09:02)
[2024-07-13 09:03] VITALS: PULSE 78
[2024-07-13] MEDS: PANTOPRAZOLE SODIUM IV 40 MG VIAL IV PUSH (09:03)
[2024-07-13] MEDS: levoFLOXacin 750 MG TABLET PO (09:03)
[2024-07-13] MEDS: carvediloL 12.5 MG TABLET PO ×2 (09:03→20:35)
[2024-07-13] MEDS: ISOSORBIDE DINITRATE 10 MG TABLET PO ×3 (09:03→16:43)
[2024-07-13] MEDS: FLUCONAZOLE 100 MG TABLET 200 MG PO (09:03)
[2024-07-13] MEDS: CYANOCOBALAMIN 1,000 MCG TABLET 1000 MCG PO (09:03)
[2024-07-13] MEDS: SODIUM BICARBONATE TAB 650 MG TABLET PO ×2 (09:04→16:44)
--- NOTE | 2024-07-13 09:45 | PM.PNCARD ---
Progress Note: A&P Assessment and Plan (1) Acute heart failure: Code(s): I50.9 - Heart failure, unspecified Status: Resolved (2) HTN (hypertension): Code(s): I10 - Essential (primary) hypertension Status: Deleted (3) Diabetes: Code(s): E11.9 - Type 2 diabetes mellitus without complications Status: Deleted (4) S/P AKA (above knee amputation) bilateral: Code(s): Z89.611 - Acquired absence of right leg above knee; Z89.612 - Acquired absence of left leg above knee Status: Acute Plan 1. UTI/Sepsis/septic shock 2. Chronic compensated systolic heart failure 3. HTN 4. PAD s/p B/L AKA TTE (07/08/2024) LVEF 25-30%., hpokinesis anterosptum. LVE, gd II DD, mild-mod AD YAMIL 1.33, VMAx 163, MG 7; mod PHTN PASP 52 mmhg, small pericardial effusion -she is post bilateral above-knee amputation, is bedbound --continue carvedilol and ISDN 10 TID -start hydralazine 10 mg p.o. t.i.d. - NO ARNI/ARB/MRA due to renal dysfunction - Avoid SGLT2 as she had recent UTI - She had declined a invasive evaluation in the past Subjective Date/time seen: 07/13/24 09:45 Interval history: No acute events overnight. Patient denies any chest pain, shortness of breath or other cardiac symptoms. Review of Systems Review of Systems: All systems reviewed & are unremarkable except as noted in HPI and below (subjective) Exam Const: General: comfortable and no acute distress Neck: Neck: no JVD Resp: Effort & Inspection: normal respiratory effort Auscultation: clear to auscultation bilaterally Cardio: Rate: regular rate Rhythm: regular rhythm Heart sounds: no murmurs Extrem: General: no edema Psych: Mental Status: mental status grossly normal Objective Data Vital Signs Vital Signs: Vital Signs - 24 hr 07/12/24 16:00 07/12/24 19:55 07/12/24 20:00 Temperature 36.1 C L 36.5 C Pulse Rate 70 72 72 Respiratory Rate 16 18 18 Blood Pressure 120/36 L 121/61 Pulse Oximetry 100 100 100 Oxygen Delivery Room Air Fraction of Inspired Oxygen 07/13/24 03:18 07/13/24 08:00 07/13/24 09:03 Temperature 36.5 C Pulse Rate 78 78 Respiratory Rate 18 Blood Pressure 144/66 H Pulse Oximetry 98 Oxygen Delivery Room Air Fraction of Inspired Oxygen Intake/Output Intake/Output: Intake & Output 07/10/24 07/11/24 07/12/24 07/13/24 23:59 23:59 23:59 23:59 Intake Total 1920.6 1500 1790 1120 Output Total 800 450 400 350 Balance 1120.6 1050 1390 770 Meds/Results Medications: Active Medications Generic Name Dose Route Start Last Admin Trade Name Freq PRN Reason Stop Dose Admin Acetaminophen 650 mg 07/06/24 21:49 Acetaminophen 650 Mg Suppository RECTAL Q6H PRN Mild Pain (1-3) or Fever Bisacodyl 10 mg 07/08/24 08:56 Bisacodyl 10 Mg Suppository RECTAL QAM PRN Constipation Carvedilol 12.5 mg 07/12/24 21:00 07/13/24 09:03 Carvedilol 12.5 Mg Tablet PO 12.5 mg Q12HR KASIE Administration Cyanocobalamin 1,000 mcg 07/07/24 09:00 07/13/24 09:03 Cyanocobalamin 1,000 Mcg Tablet PO 1,000 mcg DAILY KASIE Administration Dextrose 12.5 gm 07/06/24 23:43 Dextrose 50% 25 Gm/50 Ml Syringe IV PUSH PRN PRN Hypoglycemia Protocol Enoxaparin Sodium 30 mg 07/12/24 09:00 07/13/24 09:02 Enoxaparin 30 Mg/0.3 Ml Syringe SUB-Q 30 mg DAILY KASIE Administration Fluconazole 200 mg 07/12/24 09:00 07/13/24 09:03 Fluconazole 100 Mg Tablet PO 07/20/24 09:01 200 mg QAM KASIE Administration Furosemide 40 mg 07/14/24 09:00 Furosemide 40 Mg Tablet PO DAILY KASIE Glucagon 1 mg 07/06/24 23:43 Glucagon For Inj 1 Mg Vial IM PRN PRN Hypoglycemia Protocol Glucose 15 gm 07/06/24 23:43 Glucose Oral Gel 15 Gm Of Glucse In 37.5 Gm Tube PO PRN PRN Hypoglycemia Protocol Hydralazine HCl 10 mg 07/13/24 13:00 Hydralazine 10 Mg Tablet PO TID KASIE Dextrose 1,000 mls @ 100 mls/hr 07/06/24 23:43 Dextrose 5% 1,000 Ml IVPB PRN PRN Hypoglycemia Protocol Sodium Chloride 1,000 mls @ 100 mls/hr 07/12/24 08:30 07/13/24 05:34 Normal Saline Iv IV CONT 100 mls/hr .Q10H KASIE Administration Insulin Aspart 2 - 5 units 07/11/24 12:00 07/13/24 08:10 Insulin Aspart (*Bkc) 100 Units/Ml SUB-Q Not Given TIDWM KASIE Protocol Isosorbide Dinitrate 10 mg 07/12/24 17:00 07/13/24 09:03 Isosorbide Dinitrate 10 Mg Tablet PO 10 mg TID KASIE Administration Levofloxacin 750 mg 07/11/24 12:00 07/13/24 09:03 Levofloxacin 750 Mg Tablet PO 07/21/24 09:01 750 mg Q48HR KASIE Administration Levothyroxine Sodium 100 mcg 07/07/24 06:30 07/13/24 05:32 Levothyroxine Sodium 100 Mcg Tablet PO 100 mcg DAILY@0630 KASIE Administration Pantoprazole Sodium 40 mg 07/07/24 09:00 07/13/24 09:03 Pantoprazole Sodium Iv 40 Mg Vial IV PUSH 40 mg QAM KASIE Administration Sodium Bicarbonate 650 mg 07/12/24 09:00 07/13/24 09:04 Sodium Bicarbonate Tab 650 Mg Tablet PO 650 mg BID KASIE Administration Sodium Chloride 10 ml 07/06/24 22:00 07/13/24 05:32 Central Line Flush IV PUSH 10 ml Q8HR KASIE Administration Sodium Chloride 20 ml 07/06/24 19:24 Central Line Flush IV PUSH PRN PRN after blood draws Tramadol HCl 50 mg 07/06/24 23:29 07/12/24 19:21 Tramadol Hcl (*Crx) 50 Mg Tablet PO 50 mg Q8H PRN Administration pain 4-10 Vancomycin HCl 125 mg 07/07/24 00:00 07/13/24 05:32 Vancomycin Hcl 125 Mg Oral Capsule PO 07/17/24 00:00 125 mg Q6HR KASIE Administration Radiology Results: ITS Impressions Chest X-Ray 07/06/24 18:54 IMPRESSION: Bilateral perihilar pneumonia. The left central line tip is noted at the junction of the superior vena cava and left brachiocephalic vein. Head CT 07/06/24 19:40 IMPRESSION: No acute intracranial findings. Chest/Abdomen/Pelvis CT 07/06/24 21:16 IMPRESSION: CHEST: 1. Cardiomegaly with pericardial effusion. 2. No evidence of pneumonia or pneumothorax. 3. Right anterior chest wall seroma versus breast implant. ABDOMEN/PELVIS: 1. No evidence of appendicitis, diverticulitis or intestinal obstruction. 2. Thickened wall of the rectum which may indicate proctitis. Clinical correlation advised. 3. Air seen in the left pelvicalyceal system with hydronephrotic changes. Infection cannot be excluded. Further evaluation advised. 4. Seen in the area bladder with Kaplan's catheter. 5. Seroma in the anterior abdominal wall with wall calcification. Renal Ultrasound 07/12/24 11:15 IMPRESSION: 1. Normal kidneys without hydronephrosis. Labs Labs: Laboratory Results - last 24 hr 07/12/24 07/12/24 07/12/24 11:38 16:41 20:03 WBC RBC Hgb Hct MCV MCH MCHC RDW Plt Count MPV Immature Gran % (Auto) Neut % (Auto) Lymph % (Auto) [place] % (Auto) Eos % (Auto) Baso % (Auto) Lymph # (Auto) [place] # (Auto) Eos # (Auto) Baso # (Auto) Abs Immat Gran (auto) Absolute Neuts (auto) Absolute Nucleated RBC Nucleated RBC % Sodium Potassium Chloride Carbon Dioxide Anion Gap BUN Creatinine Estim Creat Clear Calc Estimated GFR Glucose POC Capillary Glucose 195 H 175 H Calcium Magnesium Total Bilirubin AST ALT Alkaline Phosphatase Total Protein Albumin Urine Color Yellow Urine Appearance Turbid H Urine pH 5.5 Ur Specific [place] 1.014 Urine Protein 3+ H Urine Glucose (UA) Trace H Urine Ketones Trace H Ur Blood (Man) 3+ H Urine Nitrate Negative Urine Bilirubin Negative Urine Urobilinogen 1.0 Add Ur Microanalysis Reviewed Leukocyte Esterase Rfl 3+ H Urine RBC >100 H Urine WBC >100 H Ur Squamous Epith Cells Many H Urine Bacteria Rare Urine Casts 3-5 Urine Yeast (Budding) Present H 07/13/24 07/13/24 06:28 08:01 WBC 4.9 RBC 2.78 L Hgb 8.2 L Hct 26.5 L MCV 95.3 MCH 29.5 MCHC 30.9 L RDW 17.1 H Plt Count 150 MPV 10.3 Immature Gran % (Auto) 0.6 H Neut % (Auto) 65.3 Lymph % (Auto) 18.3 [place] % (Auto) 10.3 H Eos % (Auto) 4.9 H Baso % (Auto) 0.6 Lymph # (Auto) 0.89 L [place] # (Auto) 0.5 Eos # (Auto) 0.2 Baso # (Auto) 0.0 Abs Immat Gran (auto) 0.03 Absolute Neuts (auto) 3.2 Absolute Nucleated RBC 0.020 H Nucleated RBC % 0.4 H Sodium 135 L Potassium 3.9 Chloride 104 Carbon Dioxide 15 L Anion Gap 16 H BUN 51 H Creatinine 1.98 H Estim Creat Clear Calc 21 Estimated GFR 25 L Glucose 147 H POC Capillary Glucose 141 H Calcium 7.8 L Magnesium 1.7 Total Bilirubin 1.1 AST 29 ALT 17 Alkaline Phosphatase 43 Total Protein 7.0 Albumin 3.6 Urine Color Urine Appearance Urine pH Ur Specific [place] Urine Protein Urine Glucose (UA) Urine Ketones Ur Blood (Man) Urine Nitrate Urine Bilirubin Urine Urobilinogen Add Ur Microanalysis Leukocyte Esterase Rfl Urine RBC Urine WBC Ur Squamous Epith Cells Urine Bacteria Urine Casts Urine Yeast (Budding)
[2024-07-13] MEDS: hydrALAZINE 10 MG TABLET PO ×3 (11:09→16:43)
[2024-07-13] MEDS: FUROSEMIDE 40 MG TABLET PO (11:09)
[2024-07-13 11:57] LABS: Glucose Point of Care 137 mg/dl (65-105)
[2024-07-13] MEDS: traMADol HCL (*CRX) 50 MG TABLET PO ×2 (13:10→21:26)
--- NOTE | 2024-07-13 13:27 | P.PNIM_ITS ---
Progress Note: A&P Assessment and Plan (1) Septic shock: Code(s): A41.9 - Sepsis, unspecified organism; R65.21 - Severe sepsis with septic shock Status: Acute Assessment and Plan: Septic shock secondary to UTI and bacteremia. Patient has a chronic indwelling urinary catheter. Patient also has a history of ESBL. UA is also showing yeast and patient does have history yeast in her urine. Treated with Levophed and crystalloids. 07/08: Patient was off Levophed. CT scan does not show any stone or obstruction. Kaplan has been changed 07/07 Urine culture growing Criselda glabrata. 07/06: Blood culture growing group G Streptococcus and Acinetobacter baumannii 07/08: Repeat blood cultures: Preliminary blood cultures are negative x2 07/11: Switch fluconazole to p.o. for Criselda glabrata in the urine 07/11: Will switch Unasyn to Levaquin p.o. -continue p.o. vancomycin for possible C diff (2) Combined systolic and diastolic congestive heart failure: Qualifiers: Heart failure chronicity: acute on chronic Qualified Code(s): I50.43 - Acute on chronic combined systolic (congestive) and diastolic (congestive) heart failure Code(s): I50.40 - Unspecified combined systolic (congestive) and diastolic (congestive) heart failure Status: Acute Assessment and Plan: Continue to hold meds at this time due to hypotension Cardiomyopathy with EF of 25-30%, grade 2 diastolic dysfunction and moderate aortic valve stenosis as under. Patient also has moderate pulmonary hypertension -patient does take statin, carvedilol, Jardiance, Entresto, Lasix, spironolactone at the [place] [facility] for a cardiomyopathy 07/08/2024 echocardiogram: Summary 1. Left ventricular systolic function is normal, estimated at 25-30%. hpokinesis anterosptum. 2. Left ventricular chamber dimension is mildly enlarged. 3. The left ventricular diastolic function is grade II diastolic dysfunction. 4. Right ventricular chamber dimension is normal. 5. Right ventricular systolic function is reduced. 6. There is mild to moderate aortic valve stenosis with a peak velocity of 163.15 cm/s, mean gradient of 7 mmHg, and aortic valve area of 1.33 cm2. 7. There is mild aortic valve calcification. 8. There is mild aortic valve regurgitation. 9. There is mild mitral valve calcification. 10. There is mild tricuspid valve regurgitation. 11. Moderate pulmonary hypertension, estimated pulmonary arterial systolic pressure is 52 mmHg. 12. There is mild pulmonic regurgitation. 13. There is small pericardial effusion. (3) Type 2 diabetes mellitus: Code(s): E11.9 - Type 2 diabetes mellitus without complications Status: Acute Assessment and Plan: Sliding scale insulin Diet ordered (4) Diarrhea: Code(s): R19.7 - Diarrhea, unspecified Status: Acute Assessment and Plan: Patient has chronic constipation and also has diarrhea. Patient was recently diagnosed with C diff associated diarrhea Continue p.o. vancomycin as patient has been started on IV antibiotic Laxatives have been changed to p.r.n. as patient had multiple liquid bowel movements (5) ABDIRASHID (acute kidney injury): Code(s): N17.9 - Acute kidney failure, unspecified Status: Acute Assessment and Plan: Patient has chronic kidney disease with creatinine 1.2-1.4 Presented with creatinine of 2.1 likely secondary to septic shock CT scan does not show any stone or obstruction Monitor urine output electrolytes and creatinine Creatinine back to baseline. Will hold further crystalloids Status post albumin Off Levophed Creatinine continues to creep up up to 1.89 5/2 rule out obstruction Urine is still milky. Will repeat urine culture Renal ultrasound negative for any hydronephrosis or bladder retention (6) Catheter-associated urinary tract infection: Qualifiers: Indwelling urinary catheter type: indwelling urethral catheter Encounter type: initial encounter Qualified Code(s): T83.511A - Infection and inflammatory reaction due to indwelling urethral catheter, initial encounter; N39.0 - Urinary tract infection, site not specified Code(s): T83.511A - Infection and inflammatory reaction due to indwelling urethral catheter, initial encounter; N39.0 - Urinary tract infection, site not specified Status: Acute Assessment and Plan: See above Catheter was changed the ER Urine is still milky Follow repeat urine culture May need change urine catheter (7) C. difficile diarrhea: Onset Date: 01/2024 Code(s): A04.72 - Enterocolitis due to Clostridium difficile, not specified as recurrent Status: Acute Assessment and Plan: See above (8) Acute metabolic encephalopathy: Code(s): G93.41 - Metabolic encephalopathy Status: Acute Assessment and Plan: Exam as above and significantly improved Acute metabolic encephalopathy likely secondary to septic shocks and medications Normal TSH and ammonia level Head CT reviewed Continue to Hold gabapentin and other sedative (9) Abnormal breast finding: Code(s): N64.59 - Other signs and symptoms in breast Status: Acute Assessment and Plan: Patient has a right anterior chest wall seroma versus breast implant on the CT scan. This is a known finding and was evaluated in January of 2024 by general surgery and was found to be not causing issues hence no further treatment was recommended. (10) Metabolic acidosis: Code(s): E87.20 - Acidosis, unspecified Status: Acute Assessment and Plan: Improved with IV fluids with bicarb. Increase oral bicarb (11) Electrolyte abnormality: Code(s): E87.8 - Other disorders of electrolyte and fluid balance, not elsewhere classified Status: Acute Assessment and Plan: Potassium and magnesium improved after replacement (12) Anemia: Code(s): D64.9 - Anemia, unspecified Status: Acute Assessment and Plan: 07/09: Patient dropped hemoglobin to 7.0 this morning, could be related to septic shock -07/09 will transfuse 1 unit of packed RBCs 07/10 and 07/11: Hemoglobin has been stable Continue to monitor Plan DVT prophylaxis -Lovenox held due to anemia. Restart Stress ulcer prophylaxis -PPI Nutrition -tolerating diabetic diet Code Status -patient is DNR DNI as per her advance directive from [facility] Subjective Date/time seen: 07/13/24 13:27 Interval history: No new complaints. Urine still milky. Denies any nausea vomiting Review of Systems Review of Systems: All systems reviewed & are unremarkable except as noted in HPI and below (Subjective) Exam Narrative: General: Pt is awake alert and no distress Lungs/Chest: Trachea central Clear BS B/L, No crackles or wheezing. Cardiac: RRR. Normal S1 S2. No murmurs Circulation: Bilateral AKA Abdomen: Normal bowel sounds. Obese. Soft. NT. Distended. Mass like lump palpable in periumbilical area Extremities: bilateral AKA : Kaplan in place Neurologic: Alert awake, A/O x3, followed commands with both upper extremity, facial asymmetry, PERRL Skin: Sacral maceration Objective Data Vital Signs Vital Signs: Vital Signs - 24 hr 07/12/24 16:00 07/12/24 19:55 07/12/24 20:00 Temperature 97.0 F L 97.7 F Pulse Rate 70 72 72 Respiratory Rate 16 18 18 Blood Pressure 120/36 L 121/61 Pulse Oximetry 100 100 100 Oxygen Delivery Room Air Fraction of Inspired Oxygen 21 07/13/24 03:18 07/13/24 08:00 07/13/24 09:03 Temperature 97.7 F Pulse Rate 78 78 Respiratory Rate 18 Blood Pressure 144/66 H Pulse Oximetry 98 Oxygen Delivery Room Air Fraction of Inspired Oxygen Intake/Output Intake/Output: Intake & Output 07/10/24 07/11/24 07/12/24 07/13/24 23:59 23:59 23:59 23:59 Intake Total 1920.6 1500 1790 1120 Output Total 800 450 400 350 Balance 1120.6 1050 1390 770 Meds/Results Medications: Active Medications Generic Name Dose Route Start Last Admin Trade Name Freq PRN Reason Stop Dose Admin Acetaminophen 650 mg 07/06/24 21:49 Acetaminophen 650 Mg Suppository RECTAL Q6H PRN Mild Pain (1-3) or Fever Bisacodyl 10 mg 07/08/24 08:56 Bisacodyl 10 Mg Suppository RECTAL QAM PRN Constipation Carvedilol 12.5 mg 07/12/24 21:00 07/13/24 09:03 Carvedilol 12.5 Mg Tablet PO 12.5 mg Q12HR KASIE Administration Cyanocobalamin 1,000 mcg 07/07/24 09:00 07/13/24 09:03 Cyanocobalamin 1,000 Mcg Tablet PO 1,000 mcg DAILY KASIE Administration Dextrose 12.5 gm 07/06/24 23:43 Dextrose 50% 25 Gm/50 Ml Syringe IV PUSH PRN PRN Hypoglycemia Protocol Enoxaparin Sodium 30 mg 07/12/24 09:00 07/13/24 09:02 Enoxaparin 30 Mg/0.3 Ml Syringe SUB-Q 30 mg DAILY KASIE Administration Fluconazole 200 mg 07/12/24 09:00 07/13/24 09:03 Fluconazole 100 Mg Tablet PO 07/20/24 09:01 200 mg QAM KASIE Administration Furosemide 40 mg 07/13/24 09:00 07/13/24 11:09 Furosemide 40 Mg Tablet PO 40 mg DAILY KASIE Administration Glucagon 1 mg 07/06/24 23:43 Glucagon For Inj 1 Mg Vial IM PRN PRN Hypoglycemia Protocol Glucose 15 gm 07/06/24 23:43 Glucose Oral Gel 15 Gm Of Glucse In 37.5 Gm Tube PO PRN PRN Hypoglycemia Protocol Hydralazine HCl 10 mg 07/13/24 09:00 07/13/24 13:11 Hydralazine 10 Mg Tablet PO 10 mg TID KASIE Administration Dextrose 1,000 mls @ 100 mls/hr 07/06/24 23:43 Dextrose 5% 1,000 Ml IVPB PRN PRN Hypoglycemia Protocol Sodium Chloride 1,000 mls @ 100 mls/hr 07/12/24 08:30 07/13/24 05:34 Normal Saline Iv IV CONT 100 mls/hr .Q10H KASIE Administration Insulin Aspart 2 - 5 units 07/11/24 12:00 07/13/24 11:09 Insulin Aspart (*Bkc) 100 Units/Ml SUB-Q Not Given TIDWM KASIE Protocol Isosorbide Dinitrate 10 mg 07/12/24 17:00 07/13/24 13:11 Isosorbide Dinitrate 10 Mg Tablet PO 10 mg TID KASIE Administration Levofloxacin 750 mg 07/11/24 12:00 07/13/24 09:03 Levofloxacin 750 Mg Tablet PO 07/21/24 09:01 750 mg Q48HR KASIE Administration Levothyroxine Sodium 100 mcg 07/07/24 06:30 07/13/24 05:32 Levothyroxine Sodium 100 Mcg Tablet PO 100 mcg DAILY@0630 KASIE Administration Pantoprazole Sodium 40 mg 07/07/24 09:00 07/13/24 09:03 Pantoprazole Sodium Iv 40 Mg Vial IV PUSH 40 mg QAM KASIE Administration Sodium Bicarbonate 650 mg 07/12/24 09:00 07/13/24 09:04 Sodium Bicarbonate Tab 650 Mg Tablet PO 650 mg BID KASIE Administration Sodium Chloride 10 ml 07/06/24 22:00 07/13/24 13:12 Central Line Flush IV PUSH 10 ml Q8HR KASIE Administration Sodium Chloride 20 ml 07/06/24 19:24 Central Line Flush IV PUSH PRN PRN after blood draws Tramadol HCl 50 mg 07/06/24 23:29 07/13/24 13:10 Tramadol Hcl (*Crx) 50 Mg Tablet PO 50 mg Q8H PRN Administration pain 4-10 Vancomycin HCl 125 mg 07/07/24 00:00 07/13/24 11:09 Vancomycin Hcl 125 Mg Oral Capsule PO 07/17/24 00:00 125 mg Q6HR KASIE Administration Radiology Results: ITS Impressions Chest X-Ray 07/06/24 18:54 IMPRESSION: Bilateral perihilar pneumonia. The left central line tip is noted at the junction of the superior vena cava and left brachiocephalic vein. Head CT 07/06/24 19:40 IMPRESSION: No acute intracranial findings. Chest/Abdomen/Pelvis CT 07/06/24 21:16 IMPRESSION: CHEST: 1. Cardiomegaly with pericardial effusion. 2. No evidence of pneumonia or pneumothorax. 3. Right anterior chest wall seroma versus breast implant. ABDOMEN/PELVIS: 1. No evidence of appendicitis, diverticulitis or intestinal obstruction. 2. Thickened wall of the rectum which may indicate proctitis. Clinical sriram elation advised. 3. Air seen in the left pelvicalyceal system with hydronephrotic changes. Infection cannot be excluded. Further evaluation advised. 4. Seen in the area bladder with Kaplan's catheter. 5. Seroma in the anterior abdominal wall with wall calcification. Renal Ultrasound 07/12/24 11:15 IMPRESSION: 1. Normal kidneys without hydronephrosis. Labs Labs: Laboratory Results - last 24 hr 07/12/24 07/12/24 07/13/24 16:41 20:03 06:28 WBC 4.9 RBC 2.78 L Hgb 8.2 L Hct 26.5 L MCV 95.3 MCH 29.5 MCHC 30.9 L RDW 17.1 H Plt Count 150 MPV 10.3 Immature Gran % (Auto) 0.6 H Neut % (Auto) 65.3 Lymph % (Auto) 18.3 [place] % (Auto) 10.3 H Eos % (Auto) 4.9 H Baso % (Auto) 0.6 Lymph # (Auto) 0.89 L [place] # (Auto) 0.5 Eos # (Auto) 0.2 Baso # (Auto) 0.0 Abs Immat Gran (auto) 0.03 Absolute Neuts (auto) 3.2 Absolute Nucleated RBC 0.020 H Nucleated RBC % 0.4 H Sodium 135 L Potassium 3.9 Chloride 104 Carbon Dioxide 15 L Anion Gap 16 H BUN 51 H Creatinine 1.98 H Estim Creat Clear Calc 21 Estimated GFR 25 L Glucose 147 H POC Capillary Glucose 175 H Calcium 7.8 L Magnesium 1.7 Total Bilirubin 1.1 AST 29 ALT 17 Alkaline Phosphatase 43 Total Protein 7.0 Albumin 3.6 Urine Color Yellow Urine Appearance Turbid H Urine pH 5.5 Ur Specific [place] 1.014 Urine Protein 3+ H Urine Glucose (UA) Trace H Urine Ketones Trace H Ur Blood (Man) 3+ H Urine Nitrate Negative Urine Bilirubin Negative Urine Urobilinogen 1.0 Add Ur Microanalysis Reviewed Leukocyte Esterase Rfl 3+ H Urine RBC >100 H Urine WBC >100 H Ur Squamous Epith Cells Many H Urine Bacteria Rare Urine Casts 3-5 Urine Yeast (Budding) Present H 07/13/24 07/13/24 08:01 11:43 WBC RBC Hgb Hct MCV MCH MCHC RDW Plt Count MPV Immature Gran % (Auto) Neut % (Auto) Lymph % (Auto) [place] % (Auto) Eos % (Auto) Baso % (Auto) Lymph # (Auto) [place] # (Auto) Eos # (Auto) Baso # (Auto) Abs Immat Gran (auto) Absolute Neuts (auto) Absolute Nucleated RBC Nucleated RBC % Sodium Potassium Chloride Carbon Dioxide Anion Gap BUN Creatinine Estim Creat Clear Calc Estimated GFR Glucose POC Capillary Glucose 141 H 137 H Calcium Magnesium Total Bilirubin AST ALT Alkaline Phosphatase Total Protein Albumin Urine Color Urine Appearance Urine pH Ur Specific [place] Urine Protein Urine Glucose (UA) Urine Ketones Ur Blood (Man) Urine Nitrate Urine Bilirubin Urine Urobilinogen Add Ur Microanalysis Leukocyte Esterase Rfl Urine RBC Urine WBC Ur Squamous Epith Cells Urine Bacteria Urine Casts Urine Yeast (Budding)
[2024-07-13 13:58] VITALS: BP 118/55; PULSE 63; RESP 16; TEMP 36.5; O2SAT 100
[2024-07-13 17:08] LABS: Glucose Point of Care 135 mg/dl (65-105)
[2024-07-13 20:00] VITALS: O2SAT 100
[2024-07-13 20:22] LABS: Glucose Point of Care 108 mg/dl (65-105)
[2024-07-13 20:35] VITALS: PULSE 62
[2024-07-14] VITALS: BP 141/53; PULSE 68; RESP 18; TEMP 36.4; O2SAT 100
[2024-07-14] MEDS: VANCOMYCIN HCL 125 MG ORAL CAPSULE PO ×4 (00:15→17:52)
[2024-07-14 05:17] LABS: Basophils Absolute Auto 0.1 K/mm3 (0.0-0.1); Basophils Percent Auto 1.3 % (0.2-1.2); Eosinophils Absolute Auto 0.4 K/mm3 (0-0.3); Eosinophils Percent Auto 8.6 % (0-4.4); Hemoglobin 7.9 g/dL (12.0-15.0); Immature Granulocyte Absolute 0.05 K/mm3 (0.00-0.031); Immature Granulocyte Percent A 1.1 % (0-0.5); Lymphocytes Absolute Auto 0.94 K/mm3 (0.9-3.2); Lymphocytes Percent Auto 20.3 % (18.3-44.2); Mean Corpuscular HGB Conc 31.6 g/dl (32-36); Mean Corpuscular Hemoglobin 29.8 pg (26-34); Mean Corpuscular Volume 94.3 fl (80-100); Mean Platelet Volume 10.1 fl (7.4-10.4); Monocytes Absolute Auto 0.5 K/mm3 (0.1-0.6); Monocytes Percent Auto 9.7 % (2.6-8.5); Neutrophils Absolute Auto 2.7 K/mm3 (1.3-6.7); Nucleated Red Blood Cells Perc 0.6 % (0.0-0.2); Platelet Count Result 151 k/mm3 (150-375); Red Blood Count 2.65 M/mm3 (4.2-5.4); White Blood Count 4.6 K/mm3 (4.5-10.0)
[2024-07-14 05:33] LABS: Alanine Aminotransferase 20 U/L (6-35); Albumin Level 3.7 g/dL (3.5-5.1); Alkaline Phosphatase 41 U/L (38-126); Anion Gap 16 mmol/L (4-12); Aspartate Amino Transferase 35 U/L (14-36); Bilirubin,Total 0.8 mg/dL (0.2-1.3); Blood Urea Nitrogen 46 mg/dL (7-17); Calcium 7.9 mg/dL (8.4-10.2); Carbon Dioxide 15 mmol/L (22-30); Chloride 106 mmol/L (98-107); Estimated CRCL calculation 21 ml/min; Estimated Glomerular Filt Rate 25; Glucose 86 mg/dL (65-110); Magnesium 1.6 mg/dL (1.6-2.3); Potassium 3.7 mmol/L (3.4-5.0); Sodium 137 mmol/L (137-145)
[2024-07-14] MEDS: CENTRAL LINE FLUSH 10 ML IV PUSH ×3 (06:01→20:33)
[2024-07-14] MEDS: LEVOTHYROXINE SODIUM 100 MCG TABLET PO (06:01)
[2024-07-14 06:02] VITALS: BP 125/59; PULSE 60; RESP 18; TEMP 36.4; O2SAT 100
[2024-07-14 08:21] LABS: Glucose Point of Care 73 mg/dl (65-105)
--- NOTE | 2024-07-14 09:10 | PM.IMPN ---
Progress Note: A&P Assessment and Plan (1) Septic shock: Code(s): A41.9 - Sepsis, unspecified organism; R65.21 - Severe sepsis with septic shock Status: Acute Assessment and Plan: Septic shock secondary to UTI and bacteremia. Patient has a chronic indwelling urinary catheter. Patient also has a history of ESBL. UA is also showing yeast and patient does have history yeast in her urine. Treated with Levophed and crystalloids. 07/08: Patient was off Levophed. CT scan does not show any stone or obstruction. Kaplan has been changed 07/07 Urine culture growing Criselda glabrata. 07/06: Blood culture growing group G Streptococcus and Acinetobacter baumannii 07/08: Repeat blood cultures: Preliminary blood cultures are negative x2 07/11: Switch fluconazole to p.o. for Criselda glabrata in the urine 07/11: Will switch Unasyn to Levaquin p.o. -continue p.o. vancomycin for possible C diff (2) Combined systolic and diastolic congestive heart failure: Qualifiers: Heart failure chronicity: acute on chronic Qualified Code(s): I50.43 - Acute on chronic combined systolic (congestive) and diastolic (congestive) heart failure Code(s): I50.40 - Unspecified combined systolic (congestive) and diastolic (congestive) heart failure Status: Acute Assessment and Plan: Continue to hold meds at this time due to hypotension Cardiomyopathy with EF of 25-30%, grade 2 diastolic dysfunction and moderate aortic valve stenosis as under. Patient also has moderate pulmonary hypertension -patient does take statin, carvedilol, Jardiance, Entresto, Lasix, spironolactone at the detention for a cardiomyopathy 07/08/2024 echocardiogram: Summary 1. Left ventricular systolic function is normal, estimated at 25-30%. hpokinesis anterosptum. 2. Left ventricular chamber dimension is mildly enlarged. 3. The left ventricular diastolic function is grade II diastolic dysfunction. 4. Right ventricular chamber dimension is normal. 5. Right ventricular systolic function is reduced. 6. There is mild to moderate aortic valve stenosis with a peak velocity of 163.15 cm/s, mean gradient of 7 mmHg, and aortic valve area of 1.33 cm2. 7. There is mild aortic valve calcification. 8. There is mild aortic valve regurgitation. 9. There is mild mitral valve calcification. 10. There is mild tricuspid valve regurgitation. 11. Moderate pulmonary hypertension, estimated pulmonary arterial systolic pressure is 52 mmHg. 12. There is mild pulmonic regurgitation. 13. There is small pericardial effusion. (3) Type 2 diabetes mellitus: Code(s): E11.9 - Type 2 diabetes mellitus without complications Status: Acute Assessment and Plan: Sliding scale insulin Diet ordered (4) Diarrhea: Code(s): R19.7 - Diarrhea, unspecified Status: Acute Assessment and Plan: Patient has chronic constipation and also has diarrhea. Patient was recently diagnosed with C diff associated diarrhea Continue p.o. vancomycin as patient has been started on IV antibiotic Laxatives have been changed to p.r.n. as patient had multiple liquid bowel movements (5) ABDIRASHID (acute kidney injury): Code(s): N17.9 - Acute kidney failure, unspecified Status: Acute Assessment and Plan: Patient has chronic kidney disease with creatinine 1.2-1.4 Presented with creatinine of 2.1 likely secondary to septic shock CT scan does not show any stone or obstruction Monitor urine output electrolytes and creatinine Creatinine back to baseline. Will hold further crystalloids Status post albumin Off Levophed Creatinine continues to creep up up to 1.89 5/2 rule out obstruction Urine is still milky. Will repeat urine culture which is pending however for microbiology growing same organism Renal ultrasound negative for any hydronephrosis or bladder retention Will switch fluconazole to micafungin (6) Catheter-associated urinary tract infection: Qualifiers: Indwelling urinary catheter type: indwelling urethral catheter Encounter type: initial encounter Qualified Code(s): T83.511A - Infection and inflammatory reaction due to indwelling urethral catheter, initial encounter; N39.0 - Urinary tract infection, site not specified Code(s): T83.511A - Infection and inflammatory reaction due to indwelling urethral catheter, initial encounter; N39.0 - Urinary tract infection, site not specified Status: Acute Assessment and Plan: See above Catheter was changed the ER Urine is still milky Follow repeat urine culture Will change her urine catheter Possibly has fluconazole resistance Will change to micafungin (7) C. difficile diarrhea: Onset Date: 01/2024 Code(s): A04.72 - Enterocolitis due to Clostridium difficile, not specified as recurrent Status: Acute Assessment and Plan: See above (8) Acute metabolic encephalopathy: Code(s): G93.41 - Metabolic encephalopathy Status: Acute Assessment and Plan: Exam as above and significantly improved Acute metabolic encephalopathy likely secondary to septic shocks and medications Normal TSH and ammonia level Head CT reviewed Continue to Hold gabapentin and other sedative (9) Abnormal breast finding: Code(s): N64.59 - Other signs and symptoms in breast Status: Acute Assessment and Plan: Patient has a right anterior chest wall seroma versus breast implant on the CT scan. This is a known finding and was evaluated in January of 2024 by general surgery and was found to be not causing issues hence no further treatment was recommended. (10) Metabolic acidosis: Code(s): E87.20 - Acidosis, unspecified Status: Acute Assessment and Plan: Improved with IV fluids with bicarb. Increase oral bicarb (11) Electrolyte abnormality: Code(s): E87.8 - Other disorders of electrolyte and fluid balance, not elsewhere classified Status: Acute Assessment and Plan: Potassium and magnesium improved after replacement (12) Anemia: Code(s): D64.9 - Anemia, unspecified Status: Acute Assessment and Plan: 07/09: Patient dropped hemoglobin to 7.0 this morning, could be related to septic shock -07/09 will transfuse 1 unit of packed RBCs 07/10 and 07/11: Hemoglobin has been stable Continue to monitor Plan DVT prophylaxis -Lovenox held due to anemia. Restart Stress ulcer prophylaxis -PPI Nutrition -tolerating diabetic diet Code Status -patient is DNR DNI as per her advance directive from detention Subjective Date/time seen: 07/14/24 09:10 Interval history: No overnight events. Labs reviewed. Discussed with nursing staff.no diarrhea. no nausea, vomiting. no sob, chest pain. urine still milky. urine culture pending Review of Systems Review of Systems: All systems reviewed & are unremarkable except as noted in HPI and below (Subjective) Exam Narrative: General: Pt is awake alert and no distress Lungs/Chest: Trachea central Clear BS B/L, No crackles or wheezing. Cardiac: RRR. Normal S1 S2. No murmurs Circulation: Bilateral AKA Abdomen: Normal bowel sounds. Obese. Soft. NT. Distended. Mass like lump palpable in periumbilical area Extremities: bilateral AKA : [place] in place Neurologic: Alert awake, A/O x3, followed commands with both upper extremity, facial asymmetry, PERRL Skin: Sacral maceration Objective Data Vital Signs Vital Signs: Vital Signs - 24 hr 07/13/24 13:58 07/13/24 20:00 07/13/24 20:35 Temperature 97.7 F Pulse Rate 63 62 Respiratory Rate 16 Blood Pressure 118/55 L Pulse Oximetry 100 100 Oxygen Delivery Room Air 07/14/24 00:00 07/14/24 06:02 07/14/24 08:00 Temperature 97.5 F L 97.5 F L Pulse Rate 68 60 Respiratory Rate 18 18 Blood Pressure 141/53 H 125/59 L Pulse Oximetry 100 100 Oxygen Delivery Room Air Intake/Output Intake/Output: Intake & Output 07/11/24 07/12/24 07/13/24 07/14/24 23:59 23:59 23:59 23:59 Intake Total 1500 1790 1480 Output Total 450 767 573 0661 Balance 1050 1390 1130 -1500 Meds/Results Medications: Active Medications Generic Name Dose Route Start Last Admin Trade Name Freq PRN Reason Stop Dose Admin Acetaminophen 650 mg 07/06/24 21:49 Acetaminophen 650 Mg Suppository RECTAL Q6H PRN Mild Pain (1-3) or Fever Bisacodyl 10 mg 07/08/24 08:56 Bisacodyl 10 Mg Suppository RECTAL QAM PRN Constipation Carvedilol 12.5 mg 07/12/24 21:00 07/13/24 20:35 Carvedilol 12.5 Mg Tablet PO 12.5 mg Q12HR KASIE Administration Cyanocobalamin 1,000 mcg 07/07/24 09:00 07/13/24 09:03 Cyanocobalamin 1,000 Mcg Tablet PO 1,000 mcg DAILY KASIE Administration Dextrose 12.5 gm 07/06/24 23:43 Dextrose 50% 25 Gm/50 Ml Syringe IV PUSH PRN PRN Hypoglycemia Protocol Enoxaparin Sodium 30 mg 07/12/24 09:00 07/13/24 09:02 Enoxaparin 30 Mg/0.3 Ml Syringe SUB-Q 30 mg DAILY KASIE Administration Fluconazole 200 mg 07/12/24 09:00 07/13/24 09:03 Fluconazole 100 Mg Tablet PO 07/20/24 09:01 200 mg QAM KASIE Administration Furosemide 40 mg 07/13/24 09:00 07/13/24 11:09 Furosemide 40 Mg Tablet PO 40 mg DAILY KASIE Administration Glucagon 1 mg 07/06/24 23:43 Glucagon For Inj 1 Mg Vial IM PRN PRN Hypoglycemia Protocol Glucose 15 gm 07/06/24 23:43 Glucose Oral Gel 15 Gm Of Glucse In 37.5 Gm Tube PO PRN PRN Hypoglycemia Protocol Hydralazine HCl 10 mg 07/13/24 09:00 07/13/24 16:43 Hydralazine 10 Mg Tablet PO 10 mg TID KASIE Administration Dextrose 1,000 mls @ 100 mls/hr 07/06/24 23:43 Dextrose 5% 1,000 Ml IVPB PRN PRN Hypoglycemia Protocol Insulin Aspart 2 - 5 units 07/11/24 12:00 07/13/24 16:44 Insulin Aspart (*Bkc) 100 Units/Ml SUB-Q Not Given TIDWM KASIE Protocol Isosorbide Dinitrate 10 mg 07/12/24 17:00 07/13/24 16:43 Isosorbide Dinitrate 10 Mg Tablet PO 10 mg TID KASIE Administration Levofloxacin 750 mg 07/11/24 12:00 07/13/24 09:03 Levofloxacin 750 Mg Tablet PO 07/21/24 09:01 750 mg Q48HR KASIE Administration Levothyroxine Sodium 100 mcg 07/07/24 06:30 07/14/24 06:01 Levothyroxine Sodium 100 Mcg Tablet PO 100 mcg DAILY@0630 KASIE Administration Pantoprazole Sodium 40 mg 07/07/24 09:00 07/13/24 09:03 Pantoprazole Sodium Iv 40 Mg Vial IV PUSH 40 mg QAM KASIE Administration Sodium Bicarbonate 650 mg 07/12/24 09:00 07/13/24 16:44 Sodium Bicarbonate Tab 650 Mg Tablet PO 650 mg BID KASIE Administration Sodium Chloride 10 ml 07/06/24 22:00 07/14/24 06:01 Central Line Flush IV PUSH 10 ml Q8HR KASIE Administration Sodium Chloride 20 ml 07/06/24 19:24 Central Line Flush IV PUSH PRN PRN after blood draws Tramadol HCl 50 mg 07/06/24 23:29 07/13/24 21:26 Tramadol Hcl (*Crx) 50 Mg Tablet PO 50 mg Q8H PRN Administration pain 4-10 Vancomycin HCl 125 mg 07/07/24 00:00 07/14/24 06:01 Vancomycin Hcl 125 Mg Oral Capsule PO 07/17/24 00:00 125 mg Q6HR KASIE Administration Radiology Results: ITS Impressions Chest X-Ray 07/06/24 18:54 IMPRESSION: Bilateral perihilar pneumonia. The left central line tip is noted at the junction of the superior vena cava and left brachiocephalic vein. Head CT 07/06/24 19:40 IMPRESSION: No acute intracranial findings. Chest/Abdomen/Pelvis CT 07/06/24 21:16 IMPRESSION: CHEST: 1. Cardiomegaly with pericardial effusion. 2. No evidence of pneumonia or pneumothorax. 3. Right anterior chest wall seroma versus breast implant. ABDOMEN/PELVIS: 1. No evidence of appendicitis, diverticulitis or intestinal obstruction. 2. Thickened wall of the rectum which may indicate proctitis. Clinical correlation advised. 3. Air seen in the left pelvicalyceal system with hydronephrotic changes. Infection cannot be excluded. Further evaluation advised. 4. Seen in the area bladder with Kaplan's catheter. 5. Seroma in the anterior abdominal wall with wall calcification. Renal Ultrasound 07/12/24 11:15 IMPRESSION: 1. Normal kidneys without hydronephrosis. Labs Labs: Laboratory Results - last 24 hr 07/13/24 07/13/24 07/13/24 11:43 17:00 20:04 WBC RBC Hgb Hct MCV MCH MCHC RDW Plt Count MPV Immature Gran % (Auto) Neut % (Auto) Lymph % (Auto) [place] % (Auto) Eos % (Auto) Baso % (Auto) Lymph # (Auto) [place] # (Auto) Eos # (Auto) Baso # (Auto) Abs Immat Gran (auto) Absolute Neuts (auto) Absolute Nucleated RBC Nucleated RBC % Sodium Potassium Chloride Carbon Dioxide Anion Gap BUN Creatinine Estim Creat Clear Calc Estimated GFR Glucose POC Capillary Glucose 137 H 135 H 108 H Calcium Magnesium Total Bilirubin AST ALT Alkaline Phosphatase Total Protein Albumin 07/14/24 07/14/24 05:10 08:15 WBC 4.6 RBC 2.65 L Hgb 7.9 L Hct 25.0 L MCV 94.3 MCH 29.8 MCHC 31.6 L RDW 17.0 H Plt Count 151 MPV 10.1 Immature Gran % (Auto) 1.1 H Neut % (Auto) 59.0 Lymph % (Auto) 20.3 [place] % (Auto) 9.7 H Eos % (Auto) 8.6 H Baso % (Auto) 1.3 H Lymph # (Auto) 0.94 [place] # (Auto) 0.5 Eos # (Auto) 0.4 H Baso # (Auto) 0.1 Abs Immat Gran (auto) 0.05 H Absolute Neuts (auto) 2.7 Absolute Nucleated RBC 0.030 H Nucleated RBC % 0.6 H Sodium 137 Potassium 3.7 Chloride 106 Carbon Dioxide 15 L Anion Gap 16 H BUN 46 H Creatinine 1.98 H Estim Creat Clear Calc 21 Estimated GFR 25 L Glucose 86 POC Capillary Glucose 73 Calcium 7.9 L Magnesium 1.6 Total Bilirubin 0.8 AST 35 ALT 20 Alkaline Phosphatase 41 Total Protein 8.0 Albumin 3.7
[2024-07-14] MEDS: FLUCONAZOLE 100 MG TABLET 200 MG PO (09:39)
[2024-07-14] MEDS: ENOXAPARIN 30 MG/0.3 ML SYRINGE SUB-Q (09:39)
[2024-07-14] MEDS: carvediloL 12.5 MG TABLET PO (09:39)
[2024-07-14] MEDS: ISOSORBIDE DINITRATE 10 MG TABLET PO ×3 (09:39→16:28)
[2024-07-14] MEDS: SODIUM BICARBONATE TAB 650 MG TABLET PO ×2 (09:39→16:28)
[2024-07-14] MEDS: CYANOCOBALAMIN 1,000 MCG TABLET 1000 MCG PO (09:39)
[2024-07-14] MEDS: hydrALAZINE 10 MG TABLET PO ×3 (09:39→16:28)
[2024-07-14] MEDS: FUROSEMIDE 40 MG TABLET PO (09:39)
[2024-07-14] MEDS: PANTOPRAZOLE SODIUM IV 40 MG VIAL IV PUSH (09:39)
[2024-07-14] MEDS: MICAFUNGIN SODIUM 100 MG in SODIUM CHLORIDE 0.9% IV 100 ML IVPB (10:02)
[2024-07-14 12:18] LABS: Glucose Point of Care 92 mg/dl (65-105)
[2024-07-14] MEDS: traMADol HCL (*CRX) 50 MG TABLET PO (12:51)
[2024-07-14 13:19] LABS: Glucose Point of Care 209 mg/dl (65-105)
--- NOTE | 2024-07-14 13:54 | PM.PNCARD ---
Progress Note: A&P Assessment and Plan (1) Acute heart failure: Code(s): I50.9 - Heart failure, unspecified Status: Resolved (2) HTN (hypertension): Code(s): I10 - Essential (primary) hypertension Status: Deleted (3) Diabetes: Code(s): E11.9 - Type 2 diabetes mellitus without complications Status: Deleted (4) S/P AKA (above knee amputation) bilateral: Code(s): Z89.611 - Acquired absence of right leg above knee; Z89.612 - Acquired absence of left leg above knee Status: Acute Plan 1. UTI/Sepsis/septic shock 2. Chronic compensated systolic heart failure 3. HTN 4. PAD s/p B/L AKA TTE (07/08/2024) LVEF 25-30%., hpokinesis anterosptum. LVE, gd II DD, mild-mod AD YAMIL 1.33, VMAx 163, MG 7; mod PHTN PASP 52 mmhg, small pericardial effusion - she is post bilateral above-knee amputation, is bedbound --continue carvedilol and ISDN 10 TID -Continue hydralazine 10 mg p.o. t.i.d. - NO ARNI/ARB/MRA due to renal dysfunction - Avoid SGLT2 as she had recent UTI - She had declined a invasive evaluation in the past -cardiology will sign off -cardiology clinic follow-up -please call us if there are any questions or concerns Subjective Date/time seen: 07/14/24 13:54 Interval history: No acute events overnight. Patient denies any chest pain, shortness of breath or other cardiac symptoms. Exam Narrative: General: Pt is awake alert and no distress Lungs/Chest: Trachea central Clear BS B/L, No crackles or wheezing. Cardiac: RRR. Normal S1 S2. No murmurs Circulation: Bilateral AKA Abdomen: Normal bowel sounds. Obese. Soft. NT. ND. Extremities: bilateral AKA : Kaplan in place Neurologic: Alert awake, A/O x3, followed commands with both upper extremity, facial asymmetry, PERRL Skin: Sacral maceration Const: General: comfortable and no acute distress Other: Acute on Chronically ill-appearing, obese, debilitated, appears older than stated age HENMT: Other: Head is normocephalic atraumatic, mucous membranes are dry, edentulous in upper and lower jaw Eyes: Other: Pupils are equal and reactive, positive conjunctival pallor, no scleral icterus Neck: Neck: no JVD Other: No JVD, large neck circumference, left triple-lumen IJ in place Resp: Effort & Inspection: normal respiratory effort Auscultation: clear to auscultation bilaterally Other: Decreased breath sounds throughout, no tachypnea Cardio: Rate: regular rate Rhythm: regular rhythm Heart sounds: no murmurs Other: Regular rate, regular rhythm, 2+ bilateral radial pulses, 2+ bilateral femoral pulses, no JVD GI: Other: Distended, nontender, large protrusion of anterior abdominal wall is firm, nontender, hypoactive bowel sounds : Other: Temperature probe Kaplan in place, urine appears milky but pale yellow Skin: Other: Patient has some small stage II decubitus ulcers to the buttock and upper medial thighs, multiple areas of scarring from prior healed decubitus ulcers the largest of which is on the right posterior thigh at the base of the buttock, previously healed ulcer at the posterior right labia, dried flaking skin from the bilateral lower extremity stumps Neuro: Other: Patient is little lethargic and difficult to arouse but once awake is oriented to person, place and year, she thought the month was September, she is slow to respond in only intermittently follows commands Extrem: General: no edema Other: Bilateral [id number] amputations no wounds to the stumps, 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, no clubbing, no cyanosis Psych: Mental Status: mental status grossly normal Other: Pleasantly confused, cooperative, poor judgment and insight Objective Data Vital Signs Vital Signs: Vital Signs - 24 hr 07/13/24 13:58 07/13/24 20:00 07/13/24 20:35 Temperature 36.5 C Pulse Rate 63 62 Respiratory Rate 16 Blood Pressure 118/55 L Pulse Oximetry 100 100 Oxygen Delivery Room Air 07/14/24 00:00 07/14/24 06:02 07/14/24 08:00 Temperature 36.4 C L 36.4 C L Pulse Rate 68 60 Respiratory Rate 18 18 Blood Pressure 141/53 H 125/59 L Pulse Oximetry 100 100 Oxygen Delivery Room Air Intake/Output Intake/Output: Intake & Output 07/11/24 07/12/24 07/13/24 07/14/24 23:59 23:59 23:59 23:59 Intake Total 1500 1790 1480 100 Output Total 450 731 331 3989 Balance 1050 1390 1130 -1800 Meds/Results Medications: Active Medications Generic Name Dose Route Start Last Admin Trade Name Freq PRN Reason Stop Dose Admin Acetaminophen 650 mg 07/06/24 21:49 Acetaminophen 650 Mg Suppository RECTAL Q6H PRN Mild Pain (1-3) or Fever Bisacodyl 10 mg 07/08/24 08:56 Bisacodyl 10 Mg Suppository RECTAL QAM PRN Constipation Carvedilol 12.5 mg 07/12/24 21:00 07/14/24 09:39 Carvedilol 12.5 Mg Tablet PO 12.5 mg Q12HR KASIE Administration Cyanocobalamin 1,000 mcg 07/07/24 09:00 07/14/24 09:39 Cyanocobalamin 1,000 Mcg Tablet PO 1,000 mcg DAILY KASIE Administration Dextrose 12.5 gm 07/06/24 23:43 Dextrose 50% 25 Gm/50 Ml Syringe IV PUSH PRN PRN Hypoglycemia Protocol Enoxaparin Sodium 30 mg 07/12/24 09:00 07/14/24 09:39 Enoxaparin 30 Mg/0.3 Ml Syringe SUB-Q 30 mg DAILY KASIE Administration Furosemide 40 mg 07/13/24 09:00 07/14/24 09:39 Furosemide 40 Mg Tablet PO 40 mg DAILY KASIE Administration Glucagon 1 mg 07/06/24 23:43 Glucagon For Inj 1 Mg Vial IM PRN PRN Hypoglycemia Protocol Glucose 15 gm 07/06/24 23:43 Glucose Oral Gel 15 Gm Of Glucse In 37.5 Gm Tube PO PRN PRN Hypoglycemia Protocol Hydralazine HCl 10 mg 07/13/24 09:00 07/14/24 12:51 Hydralazine 10 Mg Tablet PO 10 mg TID KASIE Administration Dextrose 1,000 mls @ 100 mls/hr 07/06/24 23:43 Dextrose 5% 1,000 Ml IVPB PRN PRN Hypoglycemia Protocol Micafungin Sodium 100 mg/ 100 mls @ 100 mls/hr 07/14/24 09:00 07/14/24 11:02 Sodium Chloride IVPB Infused DAILY KASIE Infusion Insulin Aspart 2 - 5 units 07/11/24 12:00 07/14/24 11:59 Insulin Aspart (*Bkc) 100 Units/Ml SUB-Q Not Given TIDWM [facility] Protocol Isosorbide Dinitrate 10 mg 07/12/24 17:00 07/14/24 12:51 Isosorbide Dinitrate 10 Mg Tablet PO 10 mg TID KASIE Administration Levofloxacin 750 mg 07/11/24 12:00 07/13/24 09:03 Levofloxacin 750 Mg Tablet PO 07/21/24 09:01 750 mg Q48HR KASIE Administration Levothyroxine Sodium 100 mcg 07/07/24 06:30 07/14/24 06:01 Levothyroxine Sodium 100 Mcg Tablet PO 100 mcg DAILY@0630 KASIE Administration Pantoprazole Sodium 40 mg 07/07/24 09:00 07/14/24 09:39 Pantoprazole Sodium Iv 40 Mg Vial IV PUSH 40 mg QAM KASIE Administration Sodium Bicarbonate 650 mg 07/12/24 09:00 07/14/24 09:39 Sodium Bicarbonate Tab 650 Mg Tablet PO 650 mg BID KASIE Administration Sodium Chloride 10 ml 07/06/24 22:00 07/14/24 12:52 Central Line Flush IV PUSH 10 ml Q8HR KASIE Administration Sodium Chloride 20 ml 07/06/24 19:24 Central Line Flush IV PUSH PRN PRN after blood draws Tramadol HCl 50 mg 07/06/24 23:29 07/14/24 12:51 Tramadol Hcl (*Crx) 50 Mg Tablet PO 50 mg Q8H PRN Administration pain 4-10 Vancomycin HCl 125 mg 07/07/24 00:00 07/14/24 12:51 Vancomycin Hcl 125 Mg Oral Capsule PO 07/17/24 00:00 125 mg Q6HR KASIE Administration Radiology Results: ITS Impressions Chest X-Ray 07/06/24 18:54 IMPRESSION: Bilateral perihilar pneumonia. The left central line tip is noted at the junction of the superior vena cava and left brachiocephalic vein. Head CT 07/06/24 19:40 IMPRESSION: No acute intracranial findings. Chest/Abdomen/Pelvis CT 07/06/24 21:16 IMPRESSION: CHEST: 1. Cardiomegaly with pericardial effusion. 2. No evidence of pneumonia or pneumothorax. 3. Right anterior chest wall seroma versus breast implant. ABDOMEN/PELVIS: 1. No evidence of appendicitis, diverticulitis or intestinal obstruction. 2. Thickened wall of the rectum which may indicate proctitis. Clinical correlation advised. 3. Air seen in the left pelvicalyceal system with hydronephrotic changes. Infection cannot be excluded. Further evaluation advised. 4. Seen in the area bladder with Kaplan's catheter. 5. Seroma in the anterior abdominal wall with wall calcification. Renal Ultrasound 07/12/24 11:15 IMPRESSION: 1. Normal kidneys without hydronephrosis. Labs Labs: Laboratory Results - last 24 hr 07/12/24 07/13/24 07/13/24 19:59 17:00 20:04 WBC RBC Hgb Hct MCV MCH MCHC RDW Plt Count MPV Immature Gran % (Auto) Neut % (Auto) Lymph % (Auto) [place] % (Auto) Eos % (Auto) Baso % (Auto) Lymph # (Auto) [place] # (Auto) Eos # (Auto) Baso # (Auto) Abs Immat Gran (auto) Absolute Neuts (auto) Absolute Nucleated RBC Nucleated RBC % Sodium Potassium Chloride Carbon Dioxide Anion Gap BUN Creatinine Estim Creat Clear Calc Estimated GFR Glucose POC Capillary Glucose 209 H 135 H 108 H Calcium Magnesium Total Bilirubin AST ALT Alkaline Phosphatase Total Protein Albumin 07/14/24 07/14/24 07/14/24 05:10 08:15 12:14 WBC 4.6 RBC 2.65 L Hgb 7.9 L Hct 25.0 L MCV 94.3 MCH 29.8 MCHC 31.6 L RDW 17.0 H Plt Count 151 MPV 10.1 Immature Gran % (Auto) 1.1 H Neut % (Auto) 59.0 Lymph % (Auto) 20.3 [place] % (Auto) 9.7 H Eos % (Auto) 8.6 H Baso % (Auto) 1.3 H Lymph # (Auto) 0.94 [place] # (Auto) 0.5 Eos # (Auto) 0.4 H Baso # (Auto) 0.1 Abs Immat Gran (auto) 0.05 H Absolute Neuts (auto) 2.7 Absolute Nucleated RBC 0.030 H Nucleated RBC % 0.6 H Sodium 137 Potassium 3.7 Chloride 106 Carbon Dioxide 15 L Anion Gap 16 H BUN 46 H Creatinine 1.98 H Estim Creat Clear Calc 21 Estimated GFR 25 L Glucose 86 POC Capillary Glucose 73 92 Calcium 7.9 L Magnesium 1.6 Total Bilirubin 0.8 AST 35 ALT 20 Alkaline Phosphatase 41 Total Protein 8.0 Albumin 3.7
[2024-07-14 14:16] VITALS: BP 145/38; PULSE 60; RESP 16; TEMP 36.4; O2SAT 100
[2024-07-14 17:27] LABS: Glucose Point of Care 80 mg/dl (65-105)
[2024-07-14 20:31] VITALS: BP 95/54; PULSE 66; RESP 16; TEMP 36.4; O2SAT 95
[2024-07-14 20:34] VITALS: PULSE 66
[2024-07-14 20:39] LABS: Glucose Point of Care 99 mg/dl (65-105)
[2024-07-14 20:40] LABS: Glucose Point of Care 92 mg/dl (65-105)
[2024-07-14 22:00] VITALS: BP 99/53; PULSE 62; RESP 18; TEMP 36.5; O2SAT 100
[2024-07-15] MEDS: VANCOMYCIN HCL 125 MG ORAL CAPSULE PO ×5 (00:13→23:52)
[2024-07-15] MEDS: LEVOTHYROXINE SODIUM 100 MCG TABLET PO (05:44)
[2024-07-15] MEDS: traMADol HCL (*CRX) 50 MG TABLET PO ×2 (05:45→21:02)
[2024-07-15] MEDS: CENTRAL LINE FLUSH 10 ML IV PUSH ×3 (05:45→21:02)
[2024-07-15 06:00] VITALS: BP 161/52; PULSE 64; RESP 18; TEMP 36.6; O2SAT 98
[2024-07-15 07:47] LABS: Glucose Point of Care 68 mg/dl (65-105)
[2024-07-15 08:25] LABS: Alanine Aminotransferase 18 U/L (6-35); Albumin Level 3.6 g/dL (3.5-5.1); Alkaline Phosphatase 40 U/L (38-126); Anion Gap 16 mmol/L (4-12); Aspartate Amino Transferase 28 U/L (14-36); Basophils Percent Auto 0.9 % (0.2-1.2); Bilirubin,Total 0.7 mg/dL (0.2-1.3); Blood Urea Nitrogen 39 mg/dL (7-17); Calcium 8.2 mg/dL (8.4-10.2); Carbon Dioxide 15 mmol/L (22-30); Chloride 108 mmol/L (98-107); Eosinophils Absolute Auto 0.2 K/mm3 (0-0.3); Eosinophils Percent Auto 5.2 % (0-4.4); Estimated CRCL calculation 24 ml/min; Estimated Glomerular Filt Rate 29; Glucose 67 mg/dL (65-110); Hematocrit 25.6 % (37.0-47.0); Hemoglobin 7.9 g/dL (12.0-15.0); Immature Granulocyte Absolute 0.04 K/mm3 (0.00-0.031); Immature Granulocyte Percent A 0.9 % (0-0.5); Lymphocytes Absolute Auto 0.81 K/mm3 (0.9-3.2); Lymphocytes Percent Auto 17.5 % (18.3-44.2); Mean Corpuscular HGB Conc 30.9 g/dl (32-36); Mean Corpuscular Hemoglobin 29.4 pg (26-34); Mean Corpuscular Volume 95.2 fl (80-100); Mean Platelet Volume 9.8 fl (7.4-10.4); Monocytes Absolute Auto 0.4 K/mm3 (0.1-0.6); Monocytes Percent Auto 8.9 % (2.6-8.5); Neutrophils Absolute Auto 3.1 K/mm3 (1.3-6.7); Neutrophils Percent Auto 66.6 % (45.5-73.1); Nucleated Red Blood Cells Perc 0.4 % (0.0-0.2); Platelet Count Result 164 k/mm3 (150-375); Potassium 3.7 mmol/L (3.4-5.0); Red Blood Count 2.69 M/mm3 (4.2-5.4); Sodium 139 mmol/L (137-145); White Blood Count 4.6 K/mm3 (4.5-10.0)
[2024-07-15 09:10] VITALS: PULSE 64
[2024-07-15] MEDS: hydrALAZINE 10 MG TABLET PO ×3 (09:10→17:19)
[2024-07-15] MEDS: SODIUM BICARBONATE TAB 650 MG TABLET PO ×2 (09:10→17:19)
[2024-07-15] MEDS: CYANOCOBALAMIN 1,000 MCG TABLET 1000 MCG PO (09:10)
[2024-07-15] MEDS: carvediloL 12.5 MG TABLET PO ×2 (09:10→21:02)
[2024-07-15] MEDS: levoFLOXacin 750 MG TABLET PO (09:10)
[2024-07-15] MEDS: ISOSORBIDE DINITRATE 10 MG TABLET PO ×3 (09:10→17:19)
[2024-07-15] MEDS: ENOXAPARIN 30 MG/0.3 ML SYRINGE SUB-Q (09:11)
[2024-07-15] MEDS: FUROSEMIDE 40 MG TABLET PO (09:11)
[2024-07-15] MEDS: PANTOPRAZOLE SODIUM IV 40 MG VIAL IV PUSH (09:11)
[2024-07-15] MEDS: MICAFUNGIN SODIUM 100 MG in SODIUM CHLORIDE 0.9% IV 100 ML IVPB (09:12)
--- NOTE | 2024-07-15 10:44 | PM.IMPN ---
Progress Note: A&P Assessment and Plan (1) Septic shock: Code(s): A41.9 - Sepsis, unspecified organism; R65.21 - Severe sepsis with septic shock Status: Acute Assessment and Plan: Septic shock secondary to UTI and bacteremia. Patient has a chronic indwelling urinary catheter. Patient also has a history of ESBL. UA is also showing yeast and patient does have history yeast in her urine. Treated with Levophed and crystalloids. 07/08: Patient was off Levophed. CT scan does not show any stone or obstruction. Kaplan has been changed 07/07 Urine culture growing Criselda glabrata. 07/06: Blood culture growing group G Streptococcus and Acinetobacter baumannii 07/08: Repeat blood cultures: Preliminary blood cultures are negative x2 07/11: Switch fluconazole to p.o. for Criselda glabrata in the urine 07/11: Will switch Unasyn to Levaquin p.o. 07/14/2024: Urine culture repeat growing Criselda glabrata. Switched to micafungin -continue p.o. vancomycin for possible C diff (2) Combined systolic and diastolic congestive heart failure: Qualifiers: Heart failure chronicity: acute on chronic Qualified Code(s): I50.43 - Acute on chronic combined systolic (congestive) and diastolic (congestive) heart failure Code(s): I50.40 - Unspecified combined systolic (congestive) and diastolic (congestive) heart failure Status: Acute Assessment and Plan: Continue to hold meds at this time due to hypotension Cardiomyopathy with EF of 25-30%, grade 2 diastolic dysfunction and moderate aortic valve stenosis as under. Patient also has moderate pulmonary hypertension -patient does take statin, carvedilol, Jardiance, Entresto, Lasix, spironolactone at the longterm for a cardiomyopathy 07/08/2024 echocardiogram: Summary 1. Left ventricular systolic function is normal, estimated at 25-30%. hpokinesis anterosptum. 2. Left ventricular chamber dimension is mildly enlarged. 3. The left ventricular diastolic function is grade II diastolic dysfunction. 4. Right ventricular chamber dimension is normal. 5. Right ventricular systolic function is reduced. 6. There is mild to moderate aortic valve stenosis with a peak velocity of 163.15 cm/s, mean gradient of 7 mmHg, and aortic valve area of 1.33 cm2. 7. There is mild aortic valve calcification. 8. There is mild aortic valve regurgitation. 9. There is mild mitral valve calcification. 10. There is mild tricuspid valve regurgitation. 11. Moderate pulmonary hypertension, estimated pulmonary arterial systolic pressure is 52 mmHg. 12. There is mild pulmonic regurgitation. 13. There is small pericardial effusion. (3) Type 2 diabetes mellitus: Code(s): E11.9 - Type 2 diabetes mellitus without complications Status: Acute Assessment and Plan: Sliding scale insulin Diet ordered (4) Diarrhea: Code(s): R19.7 - Diarrhea, unspecified Status: Acute Assessment and Plan: Patient has chronic constipation and also has diarrhea. Patient was recently diagnosed with C diff associated diarrhea Continue p.o. vancomycin as patient has been started on IV antibiotic Laxatives have been changed to p.r.n. as patient had multiple liquid bowel movements (5) ABDIRASHID (acute kidney injury): Code(s): N17.9 - Acute kidney failure, unspecified Status: Acute Assessment and Plan: Patient has chronic kidney disease with creatinine 1.2-1.4 Presented with creatinine of 2.1 likely secondary to septic shock CT scan does not show any stone or obstruction Monitor urine output electrolytes and creatinine Creatinine back to baseline. Will hold further crystalloids Status post albumin Off Levophed Creatinine continues to creep up up to 1.89 5/2 rule out obstruction Urine is still milky. Will repeat urine culture which is pending however for microbiology growing same organism Renal ultrasound negative for any hydronephrosis or bladder retention Will switch fluconazole to micafungin (6) Catheter-associated urinary tract infection: Qualifiers: Indwelling urinary catheter type: indwelling urethral catheter Encounter type: initial encounter Qualified Code(s): T83.511A - Infection and inflammatory reaction due to indwelling urethral catheter, initial encounter; N39.0 - Urinary tract infection, site not specified Code(s): T83.511A - Infection and inflammatory reaction due to indwelling urethral catheter, initial encounter; N39.0 - Urinary tract infection, site not specified Status: Acute Assessment and Plan: See above Catheter was changed the ER Urine is still milky Follow repeat urine culture Will change her urine catheter Possibly has fluconazole resistance Changed to micafungin 07/14/2024 (7) C. difficile diarrhea: Onset Date: 01/2024 Code(s): A04.72 - Enterocolitis due to Clostridium difficile, not specified as recurrent Status: Acute Assessment and Plan: See above (8) Acute metabolic encephalopathy: Code(s): G93.41 - Metabolic encephalopathy Status: Acute Assessment and Plan: Exam as above and significantly improved Acute metabolic encephalopathy likely secondary to septic shocks and medications Normal TSH and ammonia level Head CT reviewed Continue to Hold gabapentin and other sedative (9) Abnormal breast finding: Code(s): N64.59 - Other signs and symptoms in breast Status: Acute Assessment and Plan: Patient has a right anterior chest wall seroma versus breast implant on the CT scan. This is a known finding and was evaluated in January of 2024 by general surgery and was found to be not causing issues hence no further treatment was recommended. (10) Metabolic acidosis: Code(s): E87.20 - Acidosis, unspecified Status: Acute Assessment and Plan: Improved with IV fluids with bicarb. Increase oral bicarb (11) Electrolyte abnormality: Code(s): E87.8 - Other disorders of electrolyte and fluid balance, not elsewhere classified Status: Acute Assessment and Plan: Potassium and magnesium improved after replacement (12) Anemia: Code(s): D64.9 - Anemia, unspecified Status: Acute Assessment and Plan: 07/09: Patient dropped hemoglobin to 7.0 this morning, could be related to septic shock -07/09 will transfuse 1 unit of packed RBCs 07/10 and 07/11: Hemoglobin has been stable Continue to monitor Plan DVT prophylaxis -Lovenox held due to anemia. Restart Stress ulcer prophylaxis -PPI Nutrition -tolerating diabetic diet Code Status -patient is DNR DNI as per her advance directive from longterm Subjective Date/time seen: 07/15/24 10:44 Interval history: No overnight events. No new complaints. No chest pain or shortness of breath. No diarrhea. Review of Systems Review of Systems: All systems reviewed & are unremarkable except as noted in HPI and below (Subjective) Exam Narrative: General: Pt is awake alert and no distress Lungs/Chest: Trachea central Clear BS B/L, No crackles or wheezing. Cardiac: RRR. Normal S1 S2. No murmurs Circulation: Bilateral AKA Abdomen: Normal bowel sounds. Obese. Soft. NT. Distended. Mass like lump palpable in periumbilical area Extremities: bilateral AKA : Kaplan in place Neurologic: Alert awake, A/O x3, followed commands with both upper extremity, facial asymmetry, PERRL Skin: Sacral maceration Objective Data Vital Signs Vital Signs: Vital Signs - 24 hr 07/14/24 14:16 07/14/24 20:00 07/14/24 20:31 Temperature 97.5 F L 97.6 F Pulse Rate 60 66 Respiratory Rate 16 16 Blood Pressure 145/38 H 95/54 L Pulse Oximetry 100 95 Oxygen Delivery Room Air 07/14/24 20:34 07/14/24 22:00 07/15/24 06:00 Temperature 97.7 F 97.9 F Pulse Rate 66 62 64 Respiratory Rate 18 18 Blood Pressure 99/53 L 161/52 H Pulse Oximetry 100 98 Oxygen Delivery 07/15/24 09:10 Temperature Pulse Rate 64 Respiratory Rate Blood Pressure Pulse Oximetry Oxygen Delivery Intake/Output Intake/Output: Intake & Output 07/12/24 07/13/24 07/14/24 07/15/24 23:59 23:59 23:59 23:59 Intake Total 1790 1480 100 Output Total 610 306 1212 1260 Balance 1390 1130 -2050 -1260 Meds/Results Medications: Active Medications Generic Name Dose Route Start Last Admin Trade Name Freq PRN Reason Stop Dose Admin Acetaminophen 650 mg 07/06/24 21:49 Acetaminophen 650 Mg Suppository RECTAL Q6H PRN Mild Pain (1-3) or Fever Bisacodyl 10 mg 07/08/24 08:56 Bisacodyl 10 Mg Suppository RECTAL QAM PRN Constipation Carvedilol 12.5 mg 07/12/24 21:00 07/15/24 09:10 Carvedilol 12.5 Mg Tablet PO 12.5 mg Q12HR KASIE Administration Cyanocobalamin 1,000 mcg 07/07/24 09:00 07/15/24 09:10 Cyanocobalamin 1,000 Mcg Tablet PO 1,000 mcg DAILY KASIE Administration Dextrose 12.5 gm 07/06/24 23:43 Dextrose 50% 25 Gm/50 Ml Syringe IV PUSH PRN PRN Hypoglycemia Protocol Enoxaparin Sodium 30 mg 07/12/24 09:00 07/15/24 09:11 Enoxaparin 30 Mg/0.3 Ml Syringe SUB-Q 30 mg DAILY KASIE Administration Furosemide 40 mg 07/13/24 09:00 07/15/24 09:11 Furosemide 40 Mg Tablet PO 40 mg DAILY KASIE Administration Glucagon 1 mg 04/26/25 23:43 Glucagon For Inj 1 Mg Vial IM PRN PRN Hypoglycemia Protocol Glucose 15 gm 07/06/24 23:43 Glucose Oral Gel 15 Gm Of Glucse In 37.5 Gm Tube PO PRN PRN Hypoglycemia Protocol Hydralazine HCl 10 mg 07/13/24 09:00 07/15/24 09:10 Hydralazine 10 Mg Tablet PO 10 mg TID KASIE Administration Dextrose 1,000 mls @ 100 mls/hr 07/06/24 23:43 Dextrose 5% 1,000 Ml IVPB PRN PRN Hypoglycemia Protocol Micafungin Sodium 100 mg/ 100 mls @ 100 mls/hr 07/14/24 09:00 07/15/24 09:12 Sodium Chloride IVPB 100 mls/hr DAILY KASIE Administration Insulin Aspart 2 - 5 units 07/11/24 12:00 07/15/24 09:07 Insulin Aspart (*Bkc) 100 Units/Ml SUB-Q Not Given TIDWM KASIE Protocol Isosorbide Dinitrate 10 mg 07/12/24 17:00 07/15/24 09:10 Isosorbide Dinitrate 10 Mg Tablet PO 10 mg TID KASIE Administration Levofloxacin 750 mg 07/11/24 12:00 07/15/24 09:10 Levofloxacin 750 Mg Tablet PO 07/21/24 09:01 750 mg Q48HR KASIE Administration Levothyroxine Sodium 100 mcg 07/07/24 06:30 07/15/24 05:44 Levothyroxine Sodium 100 Mcg Tablet PO 100 mcg DAILY@0630 KASIE Administration Pantoprazole Sodium 40 mg 07/07/24 09:00 07/15/24 09:11 Pantoprazole Sodium Iv 40 Mg Vial IV PUSH 40 mg QAM KASIE Administration Sodium Bicarbonate 650 mg 07/12/24 09:00 07/15/24 09:10 Sodium Bicarbonate Tab 650 Mg Tablet PO 650 mg BID KASIE Administration Sodium Chloride 10 ml 07/06/24 22:00 07/15/24 05:45 Central Line Flush IV PUSH 10 ml Q8HR KASIE Administration Sodium Chloride 20 ml 07/06/24 19:24 Central Line Flush IV PUSH PRN PRN after blood draws Tramadol HCl 50 mg 07/06/24 23:29 07/15/24 05:45 Tramadol Hcl (*Crx) 50 Mg Tablet PO 50 mg Q8H PRN Administration pain 4-10 Vancomycin HCl 125 mg 07/07/24 00:00 07/15/24 05:45 Vancomycin Hcl 125 Mg Oral Capsule PO 07/17/24 00:00 125 mg Q6HR KASIE Administration Radiology Results: ITS Impressions Chest X-Ray 07/06/24 18:54 IMPRESSION: Bilateral perihilar pneumonia. The left central line tip is noted at the junction of the superior vena cava and left brachiocephalic vein. Head CT 07/06/24 19:40 IMPRESSION: No acute intracranial findings. Chest/Abdomen/Pelvis CT 07/06/24 21:16 IMPRESSION: CHEST: 1. Cardiomegaly with pericardial effusion. 2. No evidence of pneumonia or pneumothorax. 3. Right anterior chest wall seroma versus breast implant. ABDOMEN/PELVIS: 1. No evidence of appendicitis, diverticulitis or intestinal obstruction. 2. Thickened wall of the rectum which may indicate proctitis. Clinical correlation advised. 3. Air seen in the left pelvicalyceal system with hydronephrotic changes. Infection cannot be excluded. Further evaluation advised. 4. Seen in the area bladder with Kaplan's catheter. 5. Seroma in the anterior abdominal wall with wall calcification. Renal Ultrasound 07/12/24 11:15 IMPRESSION: 1. Normal kidneys without hydronephrosis. Labs Labs: Laboratory Results - last 24 hr 07/12/24 07/14/24 07/14/24 19:59 12:14 17:22 WBC RBC Hgb Hct MCV MCH MCHC RDW Plt Count MPV Immature Gran % (Auto) Neut % (Auto) Lymph % (Auto) [place] % (Auto) Eos % (Auto) Baso % (Auto) Lymph # (Auto) [place] # (Auto) Eos # (Auto) Baso # (Auto) Abs Immat Gran (auto) Absolute Neuts (auto) Absolute Nucleated RBC Nucleated RBC % Sodium Potassium Chloride Carbon Dioxide Anion Gap BUN Creatinine Estim Creat Clear Calc Estimated GFR Glucose POC Capillary Glucose 209 H 92 80 Calcium Total Bilirubin AST ALT Alkaline Phosphatase Total Protein Albumin 07/14/24 07/14/24 07/15/24 20:01 20:30 07:43 WBC RBC Hgb Hct MCV MCH MCHC RDW Plt Count MPV Immature Gran % (Auto) Neut % (Auto) Lymph % (Auto) [place] % (Auto) Eos % (Auto) Baso % (Auto) Lymph # (Auto) [place] # (Auto) Eos # (Auto) Baso # (Auto) Abs Immat Gran (auto) Absolute Neuts (auto) Absolute Nucleated RBC Nucleated RBC % Sodium Potassium Chloride Carbon Dioxide Anion Gap BUN Creatinine Estim Creat Clear Calc Estimated GFR Glucose POC Capillary Glucose 99 92 68 Calcium Total Bilirubin AST ALT Alkaline Phosphatase Total Protein Albumin 07/15/24 08:06 WBC 4.6 RBC 2.69 L Hgb 7.9 L Hct 25.6 L MCV 95.2 MCH 29.4 MCHC 30.9 L RDW 17.0 H Plt Count 164 MPV 9.8 Immature Gran % (Auto) 0.9 H Neut % (Auto) 66.6 Lymph % (Auto) 17.5 L [place] % (Auto) 8.9 H Eos % (Auto) 5.2 H Baso % (Auto) 0.9 Lymph # (Auto) 0.81 L [place] # (Auto) 0.4 Eos # (Auto) 0.2 Baso # (Auto) 0.0 Abs Immat Gran (auto) 0.04 H Absolute Neuts (auto) 3.1 Absolute Nucleated RBC 0.020 H Nucleated RBC % 0.4 H Sodium 139 Potassium 3.7 Chloride 108 H Carbon Dioxide 15 L Anion Gap 16 H BUN 39 H Creatinine 1.73 H Estim Creat Clear Calc 24 Estimated GFR 29 L Glucose 67 POC Capillary Glucose Calcium 8.2 L Total Bilirubin 0.7 AST 28 ALT 18 Alkaline Phosphatase 40 Total Protein 8.0 Albumin 3.6
[2024-07-15 11:30] LABS: Glucose Point of Care 120 mg/dl (65-105)
--- NOTE | 2024-07-15 13:03 | PCNFU ---
Nutrition Follow-Up Complete: Inadequate Oral Intake as related to UTI as evidenced by poor po intake reported. Adequate Intake of at least 75% of meals/supplements - Not meeting goal PO. Intakes 0-50% Goal: Pt current nutrition is Diabetic consistent carb diet, soft&bite size level 6. Glucerna BID (220 kcal, 10 g protein) Nutrition recommendation: No new recommendations. Continue to encourage PO intake Last recorded weight is 67.3 kg. Bowel Motility:+ 3 BM 07/12/24 Labs Reviewed: Hgb 7.9, Hct 25.6, BUN 39, Cre 1.73 Meds Noted: Protonix, B12, Novolog Skin: No skin issues Additional Notes: Pt had no teeth, has dentures. SBS L6 for chewing. Intakes are poor. Pt says food doesn't smell right but not able to elaborate. Intakes encouraged. Continue current nutrition care plan. Will monitor weight, labs, skin, diet orders, meds every 5 days.
--- NOTE | 2024-07-15 13:15 | P.CONUR_ITS ---
Assessment and Plan Assessment and plan (1) Catheter-associated urinary tract infection: Qualifiers: Indwelling urinary catheter type: indwelling urethral catheter E ncounter type: initial encounter Qualified Code(s): T83.511A - Infection and inflammatory reaction due to indwelling urethral catheter, initial encounter; N39.0 - Urinary tract infection, site not specified Code(s): T83.511A - Infection and inflammatory reaction due to indwelling urethral catheter, initial encounter; N39.0 - Urinary tract infection, site not specified Status: Acute (2) Candiduria: Code(s): B37.49 - Other urogenital candidiasis Status: Acute Plan Causes of candiduria include presence of long-term indwelling urinary catheters, recurrent antibiotic therapy for bacterial infections, a weakened immune system, frequent hospitalizations especially in intensive care units, and poorly controlled diabetes. All of these are risk factors for this patient. Treatment includes removal of Kaplan catheters if appropriate, antifungal medication, and addressing in optimizing underlying medical conditions which predispose to Criselda in the urine. At present I do not see a clear surgical intervention that we could perform urologically to clear her candiduria. She has no fungus ball on ultrasound. She has multiple medical risk factors for candiduria as well as the presence of an indwelling Kaplan catheter. Should focus on maximizing her underlying medical conditions and removing her Kaplan catheter if appropriate. Choice of antifungal on treatment duration would best be guided by Infectious Disease Urology Consult Note HPI Date Seen: 07/15/24 Requesting Physician: Marley Jauregui DO Primary Care Provider: Jorge Ziegler MD Consult Narrative Narrative: Iris Pascual is a 69 year old female who is a long term resident who has had multiple hospitalizations. She has an indwelling Kaplan catheter. Length of time unknown. Indication unknown. She is a poor historian. It is been changed on this admission. I am specifically consulted for Criselda within the urine. She is chronically ill and has multiple comorbidities including chronic renal insufficiency, diabetes, peripheral vascular disease. She is a bilateral amputee for which she states is complications of diabetes. She is currently admitted for sepsis. She is back on the floor. She has been imaged during this hospital stay. Renal ultrasound shows no fungus ball within the urinary tract. Kaplan catheter is draining clear yellow urine. She is asymptomatic today without fevers or chills Review of Systems 2 Review of Systems: All systems reviewed & are unremarkable except as noted in HPI and below PMFSH Past Medical History Medical History Chronic indwelling Kaplan catheter CKD (chronic kidney disease) stage 3, GFR 30-59 ml/min With baseline creatinine between 1.3 and 1.6 Iron deficiency anemia History of ESBL E. coli infection Recurrent Clostridioides difficile infection Anemia Pneumonia Stercoral colitis Urinary tract infection due to extended-spectrum beta lactamase (ESBL) producing Escherichia coli Type 2 diabetes mellitus Hypertension C. difficile diarrhea (01/2024) Gastroesophageal reflux disease History of breast cancer Thyroid cancer Hyperlipidemia Peripheral vascular disease Non-STEMI (non-ST elevated myocardial infarction) Combined systolic and diastolic congestive heart failure Echo 01/2024 demonstrated stable systolic dysfunction with EF of 25-30% but worsening diastolic function with grade 3-4 dysfunction with elevated left atrial pressures, mild right ventricular enlargement with hypokinesis of the right ventricle, mild aortic stenosis with mild aortic regurgitation, mild pulmonary hypertension with RVSP of 41 with [id number] pericardial effusion among other abnormalities Neuropathy Psychiatric disorder Dementia Surgical History Surgical History History of thyroidectomy History of ventral hernia repair With chronic calcified seroma History of above-knee amputation of both lower extremities History of right breast implant Patient reports that it was radiation implant History of lumpectomy of left breast Family History Family History Mother Family history of type 2 diabetes mellitus, Onset Age: 55 Father Acute myocardial infarction, Onset Age: 58 Social History Social History Social History: Surrogate medical decision maker: Ailny Turner, daughter. Code status: Do not resuscitate with selective treatment (paperwork accompanies the patient). Smoking status: Unknown if ever smoked Second hand tobacco smoke exposure: No Alcohol intake: unknown Substance use: unknown Substance use type: does not use Do You Feel Safe in your Home?: Yes Lack of Transportation: No Lack of Food: Never True Current Housing: I Have Housing Concerned About Future Housing: No Difficulty Paying Gas/Electric Bills: No Difficulty Paying for Meds: No Currently Unemployed: No Education: High School Diploma/GED Difficulty w/ Childcare or Family Care: No Spiritual care concerns: No Meds Home Medications and Allergies Home Medications ?Medication ?Instructions ?Recorded ?Confirmed ?Type atorvastatin 40 mg tablet 40 mg PO HS 12/05/21 07/06/24 History levothyroxine 100 mcg tablet 100 mcg PO DAILY 12/05/21 07/06/24 History gabapentin 300 mg capsule 300 mg PO TID 05/16/22 07/06/24 History potassium chloride 10 mEq 10 meq PO DAILY 05/16/22 07/06/24 History capsule,extended release furosemide 40 mg tablet (Lasix) 60 mg PO BID 01/10/24 07/06/24 History carvedilol 6.25 mg tablet (Coreg) 6.25 mg PO BID 01/30/24 07/06/24 History sacubitril 24 mg-valsartan 26 mg 1 tablet PO Q12H 01/30/24 07/06/24 History tablet (Entresto) tramadol 50 mg tablet 50 mg PO Q8H PRN pain 01/30/24 07/06/24 History magnesium citrate (Citroma oral 150 ml PO DAILY PRN Constipation 02/15/24 07/06/24 History solution) magnesium hydroxide 400 mg/5 mL 400 mg PO HS PRN Constipation 02/15/24 07/06/24 History oral suspension (Milk of Magnesia) sodium phosphates 19 gram-7 118 ml RECTAL DAILY PRN 02/15/24 07/06/24 History gram/118 mL enema (Fleet Enema) Constipation ferrous sulfate 325 mg (65 mg 325 mg PO BID #90 tabs 02/29/24 07/06/24 Rx iron) tablet,delayed release acetaminophen 325 mg capsule 650 mg PO Q4H PRN pain 05/04/24 07/06/24 History calcium 600 mg (as 1 cap PO DAILY 05/04/24 07/06/24 History carbonate)-vitamin D3 5 mcg (200 unit) capsule (Calcium 600 + D(3)) cyanocobalamin (vitamin B-12) 1,000 mcg PO DAILY 05/04/24 07/06/24 History 1,000 mcg capsule multivitamin,tx-minerals 1 cap PO DAILY 05/04/24 07/06/24 History (Multi-Vitamin HP/Minerals capsule) spironolactone 25 mg tablet 25 mg PO DAILY 05/04/24 07/06/24 History pantoprazole 40 mg tablet,delayed 40 mg PO HS 8 weeks #56 tabs 05/07/24 07/06/24 Rx release (Protonix) bisacodyl 10 mg rectal suppository 10 mg RECTAL DAILY PRN constipation 07/06/24 07/06/24 History empagliflozin 10 mg tablet 10 mg PO DAILY 07/06/24 07/06/24 History (Jardiance) insulin aspart U-100 100 unit/mL See Rx Instructions .Route .COMPLEX 07/06/24 07/06/24 History subcutaneous solution (Novolog U-100 Insulin aspart) Allergies Allergy/AdvReac Type Severity Reaction Status Date / Time codeine Allergy Unknown Verified 05/21/24 10:56 Vital Signs Vital Signs - 24 hr 07/14/24 14:16 07/14/24 20:00 07/14/24 20:31 Temperature 97.5 F L 97.6 F Pulse Rate 60 66 Respiratory Rate 16 16 Blood Pressure 145/38 H 95/54 L Pulse Oximetry 100 95 Oxygen Delivery Room Air 07/14/24 20:34 07/14/24 22:00 07/15/24 06:00 Temperature 97.7 F 97.9 F Pulse Rate 66 62 64 Respiratory Rate 18 18 Blood Pressure 99/53 L 161/52 H Pulse Oximetry 100 98 Oxygen Delivery 07/15/24 09:10 07/15/24 09:10 Temperature Pulse Rate 64 Respiratory Rate Blood Pressure Pulse Oximetry Oxygen Delivery Room Air Exam 2 Narrative: No acute distress Poor historian Bilateral amputee Kaplan catheter in place clear yellow urine Results Labs 07/15/24 08:06 07/15/24 08:06 Labs: Short CBC 07/15/24 Range/Units 08:06 WBC 4.6 (4.5-10.0) K/mm3 Hgb 7.9 L (12.0-15.0) g/dL Hct 25.6 L (37.0-47.0) % Plt Count 164 (150-375) k/mm3 BMP 07/15/24 08:06 Sodium 139 Potassium 3.7 Chloride 108 H Carbon Dioxide 15 L BUN 39 H Creatinine 1.73 H Glucose 67 Calcium 8.2 L Liver Function 07/15/24 Range/Units 08:06 Total Bilirubin 0.7 (0.2-1.3) mg/dL AST 28 (14-36) U/L ALT 18 (6-35) U/L Alkaline Phosphatase 40 (38-126) U/L Albumin 3.6 (3.5-5.1) g/dL Imaging My impression: Renal ultrasound shows no mobile fungus ball in the renal pelvis. No hydronephrosis
[2024-07-15 13:58] VITALS: BP 114/50; PULSE 67; RESP 18; TEMP 36.5; O2SAT 100
[2024-07-15 16:58] LABS: Glucose Point of Care 80 mg/dl (65-105)
[2024-07-15 20:11] VITALS: BP 177/48; PULSE 68; RESP 18; TEMP 36.4; O2SAT 98
[2024-07-15 20:38] LABS: Glucose Point of Care 118 mg/dl (65-105)
[2024-07-15 21:02] VITALS: PULSE 68
[2024-07-16 04:39] VITALS: BP 152/48; PULSE 65; RESP 18; TEMP 36.5; O2SAT 99
[2024-07-16 05:16] LABS: Basophils Percent Auto 0.7 % (0.2-1.2); Eosinophils Absolute Auto 0.2 K/mm3 (0-0.3); Eosinophils Percent Auto 3.7 % (0-4.4); Hematocrit 25.8 % (37.0-47.0); Immature Granulocyte Absolute 0.04 K/mm3 (0.00-0.031); Immature Granulocyte Percent A 0.9 % (0-0.5); Lymphocytes Absolute Auto 0.91 K/mm3 (0.9-3.2); Lymphocytes Percent Auto 19.7 % (18.3-44.2); Mean Corpuscular Hemoglobin 29.4 pg (26-34); Mean Corpuscular Volume 94.9 fl (80-100); Monocytes Absolute Auto 0.4 K/mm3 (0.1-0.6); Monocytes Percent Auto 9.5 % (2.6-8.5); Neutrophils Percent Auto 65.5 % (45.5-73.1); Nucleated Red Blood Cells Perc 0.4 % (0.0-0.2); Platelet Count Result 169 k/mm3 (150-375); Red Blood Count 2.72 M/mm3 (4.2-5.4); Red Cell Distribution Width 16.8 % (11.5-14.5); White Blood Count 4.6 K/mm3 (4.5-10.0)
[2024-07-16] MEDS: LEVOTHYROXINE SODIUM 100 MCG TABLET PO (05:29)
[2024-07-16 05:30] LABS: Alanine Aminotransferase 15 U/L (6-35); Albumin Level 3.6 g/dL (3.5-5.1); Alkaline Phosphatase 40 U/L (38-126); Anion Gap 17 mmol/L (4-12); Aspartate Amino Transferase 26 U/L (14-36); Bilirubin,Total 0.6 mg/dL (0.2-1.3); Blood Urea Nitrogen 33 mg/dL (7-17); Calcium 8.4 mg/dL (8.4-10.2); Carbon Dioxide 15 mmol/L (22-30); Chloride 106 mmol/L (98-107); Estimated CRCL calculation 26 ml/min; Estimated Glomerular Filt Rate 33; Glucose 104 mg/dL (65-110); Magnesium 1.6 mg/dL (1.6-2.3); Potassium 3.6 mmol/L (3.4-5.0); Sodium 138 mmol/L (137-145)
[2024-07-16] MEDS: VANCOMYCIN HCL 125 MG ORAL CAPSULE PO ×3 (05:30→17:16)
[2024-07-16] MEDS: CENTRAL LINE FLUSH 10 ML IV PUSH ×3 (05:30→21:07)
[2024-07-16 08:01] LABS: Glucose Point of Care 89 mg/dl (65-105)
[2024-07-16] MEDS: hydrALAZINE 10 MG TABLET PO ×3 (08:53→17:15)
[2024-07-16] MEDS: FUROSEMIDE 40 MG TABLET PO (08:53)
[2024-07-16] MEDS: PANTOPRAZOLE SODIUM IV 40 MG VIAL IV PUSH (08:53)
[2024-07-16] MEDS: CYANOCOBALAMIN 1,000 MCG TABLET 1000 MCG PO (08:53)
[2024-07-16] MEDS: ENOXAPARIN 30 MG/0.3 ML SYRINGE SUB-Q (08:53)
[2024-07-16 08:54] VITALS: PULSE 64
[2024-07-16] MEDS: SODIUM BICARBONATE TAB 650 MG TABLET PO ×2 (08:54→17:15)
[2024-07-16] MEDS: carvediloL 12.5 MG TABLET PO ×2 (08:54→21:03)
[2024-07-16] MEDS: ISOSORBIDE DINITRATE 10 MG TABLET PO ×3 (08:55→17:15)
[2024-07-16] MEDS: MICAFUNGIN SODIUM 100 MG in SODIUM CHLORIDE 0.9% IV 100 ML IVPB (09:00)
[2024-07-16 09:12] VITALS: RESP 18; O2SAT 99
--- NOTE | 2024-07-16 11:14 | PM.IMPN ---
Progress Note: A&P Assessment and Plan (1) Septic shock: Code(s): A41.9 - Sepsis, unspecified organism; R65.21 - Severe sepsis with septic shock Status: Acute Assessment and Plan: Septic shock secondary to UTI and bacteremia. Patient has a chronic indwelling urinary catheter. Patient also has a history of ESBL. UA is also showing yeast and patient does have history yeast in her urine. Treated with Levophed and crystalloids. 07/08: Patient was off Levophed. CT scan does not show any stone or obstruction. Kaplan has been changed 07/07 Urine culture growing Criselda glabrata. 07/06: Blood culture growing group G Streptococcus and Acinetobacter baumannii 07/08: Repeat blood cultures: Preliminary blood cultures are negative x2 07/11: Switch fluconazole to p.o. for Criselda glabrata in the urine 07/11: Will switch Unasyn to Levaquin p.o. 07/14/2024: Urine culture repeat growing Criselda glabrata. Switched to micafungin. -continue p.o. vancomycin for possible C diff concludes course (2) Combined systolic and diastolic congestive heart failure: Qualifiers: Heart failure chronicity: acute on chronic Qualified Code(s): I50.43 - Acute on chronic combined systolic (congestive) and diastolic (congestive) heart failure Code(s): I50.40 - Unspecified combined systolic (congestive) and diastolic (congestive) heart failure Status: Acute Assessment and Plan: Continue to hold meds at this time due to hypotension Cardiomyopathy with EF of 25-30%, grade 2 diastolic dysfunction and moderate aortic valve stenosis as under. Patient also has moderate pulmonary hypertension -patient does take statin, carvedilol, Jardiance, Entresto, Lasix, spironolactone at the longterm for a cardiomyopathy 07/08/2024 echocardiogram: Summary 1. Left ventricular systolic function is normal, estimated at 25-30%. hpokinesis anterosptum. 2. Left ventricular chamber dimension is mildly enlarged. 3. The left ventricular diastolic function is grade II diastolic dysfunction. 4. Right ventricular chamber dimension is normal. 5. Right ventricular systolic function is reduced. 6. There is mild to moderate aortic valve stenosis with a peak velocity of 163.15 cm/s, mean gradient of 7 mmHg, and aortic valve area of 1.33 cm2. 7. There is mild aortic valve calcification. 8. There is mild aortic valve regurgitation. 9. There is mild mitral valve calcification. 10. There is mild tricuspid valve regurgitation. 11. Moderate pulmonary hypertension, estimated pulmonary arterial systolic pressure is 52 mmHg. 12. There is mild pulmonic regurgitation. 13. There is small pericardial effusion. (3) Type 2 diabetes mellitus: Code(s): E11.9 - Type 2 diabetes mellitus without complications Status: Acute Assessment and Plan: Sliding scale insulin Diet ordered (4) Diarrhea: Code(s): R19.7 - Diarrhea, unspecified Status: Acute Assessment and Plan: Patient has chronic constipation and also has diarrhea. Patient was recently diagnosed with C diff associated diarrhea Continue p.o. vancomycin as patient has been started on IV antibiotic Laxatives have been changed to p.r.n. as patient had multiple liquid bowel movements (5) ABDIRASHID (acute kidney injury): Code(s): N17.9 - Acute kidney failure, unspecified Status: Acute Assessment and Plan: Patient has chronic kidney disease with creatinine 1.2-1.4 Presented with creatinine of 2.1 likely secondary to septic shock CT scan does not show any stone or obstruction Monitor urine output electrolytes and creatinine Creatinine back to baseline. Will hold further crystalloids Status post albumin Off Levophed Creatinine continues to creep up up to 1.89 5/2 rule out obstruction Urine is still milky. Will repeat urine culture which is pending however for microbiology growing same organism Renal ultrasound negative for any hydronephrosis or bladder retention Will switch fluconazole to micafungin. Monitor for clearing of her urine. Switched to voriconazole to finish course? Despite these anti fungals are not ideal for candiduria trying to avoid amphotericin B treatment since not overtly sick (6) Catheter-associated urinary tract infection: Qualifiers: Indwelling urinary catheter type: indwelling urethral catheter Encounter type: initial encounter Qualified Code(s): T83.511A - Infection and inflammatory reaction due to indwelling urethral catheter, initial encounter; N39.0 - Urinary tract infection, site not specified Code(s): T83.511A - Infection and inflammatory reaction due to indwelling urethral catheter, initial encounter; N39.0 - Urinary tract infection, site not specified Status: Acute Assessment and Plan: See above Catheter was changed the ER Urine is still milky Follow repeat urine culture Will change her urine catheter Possibly has fluconazole resistance Changed to micafungin 07/14/2024 (7) C. difficile diarrhea: Onset Date: 01/2024 Code(s): A04.72 - Enterocolitis due to Clostridium difficile, not specified as recurrent Status: Acute Assessment and Plan: See above (8) Acute metabolic encephalopathy: Code(s): G93.41 - Metabolic encephalopathy Status: Acute Assessment and Plan: Exam as above and significantly improved Acute metabolic encephalopathy likely secondary to septic shocks and medications Normal TSH and ammonia level Head CT reviewed Continue to Hold gabapentin and other sedative (9) Abnormal breast finding: Code(s): N64.59 - Other signs and symptoms in breast Status: Acute Assessment and Plan: Patient has a right anterior chest wall seroma versus breast implant on the CT scan. This is a known finding and was evaluated in January of 2024 by general surgery and was found to be not causing issues hence no further treatment was recommended. (10) Metabolic acidosis: Code(s): E87.20 - Acidosis, unspecified Status: Acute Assessment and Plan: Improved with IV fluids with bicarb. Increase oral bicarb (11) Electrolyte abnormality: Code(s): E87.8 - Other disorders of electrolyte and fluid balance, not elsewhere classified Status: Acute Assessment and Plan: Potassium and magnesium improved after replacement (12) Anemia: Code(s): D64.9 - Anemia, unspecified Status: Acute Assessment and Plan: 07/09: Patient dropped hemoglobin to 7.0 this morning, could be related to septic shock -07/09 will transfuse 1 unit of packed RBCs 07/10 and 07/11: Hemoglobin has been stable Continue to monitor Plan DVT prophylaxis -Lovenox held due to anemia. Restart Stress ulcer prophylaxis -PPI Nutrition -tolerating diabetic diet Code Status -patient is DNR DNI as per her advance directive from longterm Subjective Date/time seen: 07/16/24 11:14 Interval history: No overnight events. No new complaints. Urology consult reviewed. Review of Systems Review of Systems: All systems reviewed & are unremarkable except as noted in HPI and below (Subjective) Exam Narrative: General: Pt is awake alert and no distress Lungs/Chest: Trachea central Clear BS B/L, No crackles or wheezing. Cardiac: RRR. Normal S1 S2. No murmurs Circulation: Bilateral AKA Abdomen: Normal bowel sounds. Obese. Soft. NT. Distended. Mass like lump palpable in periumbilical area Extremities: bilateral AKA : Kaplan in place Neurologic: Alert awake, A/O x3, followed commands with both upper extremity, facial asymmetry, PERRL Skin: Sacral maceration Objective Data Vital Signs Vital Signs: Vital Signs - 24 hr 07/15/24 13:58 07/15/24 20:00 07/15/24 20:11 Temperature 97.7 F 97.6 F Pulse Rate 67 68 Respiratory Rate 18 18 Blood Pressure 114/50 L 177/48 H Pulse Oximetry 100 98 Oxygen Delivery Room Air Fraction of Inspired Oxygen 07/15/24 21:02 07/16/24 04:39 07/16/24 08:54 Temperature 97.7 F Pulse Rate 68 65 64 Respiratory Rate 18 Blood Pressure 152/48 H Pulse Oximetry 99 Oxygen Delivery Fraction of Inspired Oxygen 07/16/24 09:12 Temperature Pulse Rate Respiratory Rate 18 Blood Pressure Pulse Oximetry 99 Oxygen Delivery Room Air Fraction of Inspired Oxygen 21 Intake/Output Intake/Output: Intake & Output 07/13/24 07/14/24 07/15/24 07/16/24 23:59 23:59 23:59 23:59 Intake Total 1480 100 740 540 Output Total 350 2150 2260 700 Balance 1130 -2050 -1520 -160 Meds/Results Medications: Active Medications Generic Name Dose Route Start Last Admin Trade Name Freq PRN Reason Stop Dose Admin Acetaminophen 650 mg 07/06/24 21:49 Acetaminophen 650 Mg Suppository RECTAL Q6H PRN Mild Pain (1-3) or Fever Bisacodyl 10 mg 07/08/24 08:56 Bisacodyl 10 Mg Suppository RECTAL QAM PRN Constipation Carvedilol 12.5 mg 07/12/24 21:00 07/16/24 08:54 Carvedilol 12.5 Mg Tablet PO 12.5 mg Q12HR KASIE Administration Cyanocobalamin 1,000 mcg 07/07/24 09:00 07/16/24 08:53 Cyanocobalamin 1,000 Mcg Tablet PO 1,000 mcg DAILY KASIE Administration Dextrose 12.5 gm 07/06/24 23:43 Dextrose 50% 25 Gm/50 Ml Syringe IV PUSH PRN PRN Hypoglycemia Protocol Enoxaparin Sodium 30 mg 07/12/24 09:00 07/16/24 08:53 Enoxaparin 30 Mg/0.3 Ml Syringe SUB-Q 30 mg DAILY KASIE Administration Furosemide 40 mg 07/13/24 09:00 07/16/24 08:53 Furosemide 40 Mg Tablet PO 40 mg DAILY KASIE Administration Glucagon 1 mg 07/06/24 23:43 Glucagon For Inj 1 Mg Vial IM PRN PRN Hypoglycemia Protocol Glucose 15 gm 07/06/24 23:43 Glucose Oral Gel 15 Gm Of Glucse In 37.5 Gm Tube PO PRN PRN Hypoglycemia Protocol Hydralazine HCl 10 mg 07/13/24 09:00 07/16/24 08:53 Hydralazine 10 Mg Tablet PO 10 mg TID KASIE Administration Dextrose 1,000 mls @ 100 mls/hr 07/06/24 23:43 Dextrose 5% 1,000 Ml IVPB PRN PRN Hypoglycemia Protocol Micafungin Sodium 100 mg/ 100 mls @ 100 mls/hr 07/14/24 09:00 07/16/24 10:00 Sodium Chloride IVPB Infused DAILY KASIE Infusion Insulin Aspart 2 - 5 units 07/11/24 12:00 07/16/24 08:15 Insulin Aspart (*Bkc) 100 Units/Ml SUB-Q Not Given TIDWM [facility] Protocol Isosorbide Dinitrate 10 mg 07/12/24 17:00 07/16/24 08:55 Isosorbide Dinitrate 10 Mg Tablet PO 10 mg TID KASIE Administration Levofloxacin 750 mg 07/11/24 12:00 07/15/24 09:10 Levofloxacin 750 Mg Tablet PO 07/21/24 09:01 750 mg Q48HR KASIE Administration Levothyroxine Sodium 100 mcg 07/07/24 06:30 07/16/24 05:29 Levothyroxine Sodium 100 Mcg Tablet PO 100 mcg DAILY@0630 KASIE Administration Miscellaneous Information 1 each 07/16/24 00:01 Po Vancomycin Needs To Be Renewed Or It Will Automatically Discontinue. XX 08/15/24 00:00 CLARIFY KASIE Pantoprazole Sodium 40 mg 07/07/24 09:00 07/16/24 08:53 Pantoprazole Sodium Iv 40 Mg Vial IV PUSH 40 mg QAM KASIE Administration Sodium Bicarbonate 650 mg 07/12/24 09:00 07/16/24 08:54 Sodium Bicarbonate Tab 650 Mg Tablet PO 650 mg BID KASIE Administration Sodium Chloride 10 ml 07/06/24 22:00 07/16/24 05:30 Central Line Flush IV PUSH 10 ml Q8HR KASIE Administration Sodium Chloride 20 ml 07/06/24 19:24 Central Line Flush IV PUSH PRN PRN after blood draws Tramadol HCl 50 mg 07/06/24 23:29 07/15/24 21:02 Tramadol Hcl (*Crx) 50 Mg Tablet PO 50 mg Q8H PRN Administration pain 4-10 Vancomycin HCl 125 mg 07/07/24 00:00 07/16/24 05:30 Vancomycin Hcl 125 Mg Oral Capsule PO 07/17/24 00:00 125 mg Q6HR KASIE Administration Radiology Results: ITS Impressions Chest X-Ray 07/06/24 18:54 IMPRESSION: Bilateral perihilar pneumonia. The left central line tip is noted at the junction of the superior vena cava and left brachiocephalic vein. Head CT 07/06/24 19:40 IMPRESSION: No acute intracranial findings. Chest/Abdomen/Pelvis CT 07/06/24 21:16 IMPRESSION: CHEST: 1. Cardiomegaly with pericardial effusion. 2. No evidence of pneumonia or pneumothorax. 3. Right anterior chest wall seroma versus breast implant. ABDOMEN/PELVIS: 1. No evidence of appendicitis, diverticulitis or intestinal obstruction. 2. Thickened wall of the rectum which may indicate proctitis. Clinical correlation advised. 3. Air seen in the left pelvicalyceal system with hydronephrotic changes. Infection cannot be excluded. Further evaluation advised. 4. Seen in the area bladder with Kaplan's catheter. 5. Seroma in the anterior abdominal wall with wall calcification. Renal Ultrasound 07/12/24 11:15 IMPRESSION: 1. Normal kidneys without hydronephrosis. Labs Labs: Laboratory Results - last 24 hr 07/15/24 07/15/24 07/15/24 11:28 16:54 20:16 WBC RBC Hgb Hct MCV MCH MCHC RDW Plt Count MPV Immature Gran % (Auto) Neut % (Auto) Lymph % (Auto) Wayne % (Auto) Eos % (Auto) Baso % (Auto) Lymph # (Auto) Wayne # (Auto) Eos # (Auto) Baso # (Auto) Abs Immat Gran (auto) Absolute Neuts (auto) Absolute Nucleated RBC Nucleated RBC % Sodium Potassium Chloride Carbon Dioxide Anion Gap BUN Creatinine Estim Creat Clear Calc Estimated GFR Glucose POC Capillary Glucose 120 H 80 118 H Calcium Magnesium Total Bilirubin AST ALT Alkaline Phosphatase Total Protein Albumin 07/16/24 07/16/24 04:57 07:59 WBC 4.6 RBC 2.72 L Hgb 8.0 L Hct 25.8 L MCV 94.9 MCH 29.4 MCHC 31.0 L RDW 16.8 H Plt Count 169 MPV 10.0 Immature Gran % (Auto) 0.9 H Neut % (Auto) 65.5 Lymph % (Auto) 19.7 Wayne % (Auto) 9.5 H Eos % (Auto) 3.7 Baso % (Auto) 0.7 Lymph # (Auto) 0.91 Wayne # (Auto) 0.4 Eos # (Auto) 0.2 Baso # (Auto) 0.0 Abs Immat Gran (auto) 0.04 H Absolute Neuts (auto) 3.0 Absolute Nucleated RBC 0.020 H Nucleated RBC % 0.4 H Sodium 138 Potassium 3.6 Chloride 106 Carbon Dioxide 15 L Anion Gap 17 H BUN 33 H Creatinine 1.56 H Estim Creat Clear Calc 26 Estimated GFR 33 L Glucose 104 POC Capillary Glucose 89 Calcium 8.4 Magnesium 1.6 Total Bilirubin 0.6 AST 26 ALT 15 Alkaline Phosphatase 40 Total Protein 7.0 Albumin 3.6
[2024-07-16 11:26] LABS: Glucose Point of Care 111 mg/dl (65-105)
[2024-07-16 14:00] VITALS: BP 127/43; PULSE 63; RESP 16; TEMP 36.1; O2SAT 99
[2024-07-16 16:41] LABS: Glucose Point of Care 117 mg/dl (65-105)
[2024-07-16 20:15] VITALS: BP 142/50; PULSE 64; RESP 18; TEMP 36.5; O2SAT 100
[2024-07-16 20:55] LABS: Glucose Point of Care 107 mg/dl (65-105)
[2024-07-16 21:03] VITALS: PULSE 64
[2024-07-16] MEDS: traMADol HCL (*CRX) 50 MG TABLET PO (21:03)
[2024-07-17 04:43] VITALS: BP 161/65; PULSE 62; RESP 18; TEMP 36.4; O2SAT 97
[2024-07-17] MEDS: LEVOTHYROXINE SODIUM 100 MCG TABLET PO (05:31)
[2024-07-17] MEDS: CENTRAL LINE FLUSH 10 ML IV PUSH ×3 (05:31→20:36)
[2024-07-17 06:13] LABS: Basophils Percent Auto 0.7 % (0.2-1.2); Eosinophils Absolute Auto 0.2 K/mm3 (0-0.3); Eosinophils Percent Auto 4.3 % (0-4.4); Hematocrit 26.7 % (37.0-47.0); Hemoglobin 8.2 g/dL (12.0-15.0); Immature Granulocyte Absolute 0.01 K/mm3 (0.00-0.031); Immature Granulocyte Percent A 0.2 % (0-0.5); Lymphocytes Absolute Auto 0.88 K/mm3 (0.9-3.2); Mean Corpuscular HGB Conc 30.7 g/dl (32-36); Mean Corpuscular Hemoglobin 29.5 pg (26-34); Monocytes Absolute Auto 0.4 K/mm3 (0.1-0.6); Neutrophils Absolute Auto 2.9 K/mm3 (1.3-6.7); Neutrophils Percent Auto 64.8 % (45.5-73.1); Platelet Count Result 170 k/mm3 (150-375); Red Blood Count 2.78 M/mm3 (4.2-5.4); Red Cell Distribution Width 17.5 % (11.5-14.5); White Blood Count 4.4 K/mm3 (4.5-10.0)
[2024-07-17 06:31] LABS: Anion Gap 15 mmol/L (4-12); Blood Urea Nitrogen 27 mg/dL (7-17); Calcium 8.3 mg/dL (8.4-10.2); Carbon Dioxide 18 mmol/L (22-30); Chloride 106 mmol/L (98-107); Estimated CRCL calculation 30 ml/min; Estimated Glomerular Filt Rate 40; Glucose 84 mg/dL (65-110); Magnesium 1.5 mg/dL (1.6-2.3); Potassium 3.3 mmol/L (3.4-5.0); Sodium 139 mmol/L (137-145)
[2024-07-17 07:36] LABS: Glucose Point of Care 75 mg/dl (65-105)
[2024-07-17] MEDS: POTASSIUM CHLORIDE 20 MEQ ER TABLET 40 MEQ PO (09:18)
[2024-07-17 09:19] VITALS: PULSE 62
[2024-07-17] MEDS: ISOSORBIDE DINITRATE 10 MG TABLET PO ×3 (09:19→18:06)
[2024-07-17] MEDS: ENOXAPARIN 30 MG/0.3 ML SYRINGE SUB-Q (09:19)
[2024-07-17] MEDS: CYANOCOBALAMIN 1,000 MCG TABLET 1000 MCG PO (09:19)
[2024-07-17] MEDS: SODIUM BICARBONATE TAB 650 MG TABLET PO ×2 (09:19→18:06)
[2024-07-17] MEDS: levoFLOXacin 750 MG TABLET PO (09:19)
[2024-07-17] MEDS: carvediloL 12.5 MG TABLET PO ×2 (09:19→20:36)
[2024-07-17] MEDS: hydrALAZINE 10 MG TABLET PO ×3 (09:19→18:06)
[2024-07-17] MEDS: FUROSEMIDE 40 MG TABLET PO (09:19)
[2024-07-17] MEDS: PANTOPRAZOLE SODIUM IV 40 MG VIAL IV PUSH (09:20)
[2024-07-17] MEDS: MICAFUNGIN SODIUM 100 MG in SODIUM CHLORIDE 0.9% IV 100 ML IVPB (09:25)
[2024-07-17] MEDS: traMADol HCL (*CRX) 50 MG TABLET PO ×2 (10:22→18:05)
[2024-07-17] MEDS: MAGNESIUM SULF 2 GM/WATER 50ML 2 GM/50 ML BAG IVPB (10:23)
[2024-07-17 11:21] LABS: Glucose Point of Care 110 mg/dl (65-105)
--- NOTE | 2024-07-17 11:31 | P.PNIM_ITS ---
Progress Note: A&P Assessment and Plan (1) Septic shock: Code(s): A41.9 - Sepsis, unspecified organism; R65.21 - Severe sepsis with septic shock Status: Acute Assessment and Plan: * Septic shock secondary to UTI and bacteremia. Patient has a chronic indwelling urinary catheter. Patient also has a history of ESBL. UA is also showing yeast and patient does have history yeast in her urine. Treated with Levophed and crystalloids. * 07/08: Patient was off Levophed. CT scan does not show any stone or obstruction. Kaplan has been changed * 07/07 Urine culture growing Criselda glabrata. * 07/06: Blood culture growing group G Streptococcus and Acinetobacter baumannii * 07/08: Repeat blood cultures: Preliminary blood cultures are negative x2 * 07/11: Switch fluconazole to p.o. for Criselda glabrata in the urine * 07/11: Will switch Unasyn to Levaquin p.o. * 07/14/2024: Urine culture repeat growing Criselda glabrata. Switched to micafungin. * vancomycin for possible C diff concludes course. * 07/17/24: Continue Micafungin, IV access to assess for line placement for patient to receive so she can be discharged to nursing facility and complete regimen. (2) Combined systolic and diastolic congestive heart failure: Qualifiers: Heart failure chronicity: acute on chronic Qualified Code(s): I50.43 - Acute on chronic combined systolic (congestive) and diastolic (congestive) heart failure Code(s): I50.40 - Unspecified combined systolic (congestive) and diastolic (congestive) heart failure Status: Acute Assessment and Plan: * Cardiomyopathy with EF of 25-30%, grade 2 diastolic dysfunction and moderate aortic valve stenosis as under. Patient also has moderate pulmonary hypertension -patient does take statin, carvedilol, Jardiance, Entresto, Lasix, [facility]actone [facility] for a cardiomyopathy * 07/08/2024 echocardiogram: Summary 1. Left ventricular systolic function is normal, estimated at 25-30%. hpokinesis anterosptum. 2. Left ventricular chamber dimension is mildly enlarged. 3. The left ventricular diastolic function is grade II diastolic dysfunction. 4. Right ventricular chamber dimension is normal. 5. Right ventricular systolic function is reduced. 6. There is mild to moderate aortic valve stenosis with a peak velocity of 163.15 cm/s, mean gradient of 7 mmHg, and aortic valve area of 1.33 cm2. 7. There is mild aortic valve calcification. 8. There is mild aortic valve regurgitation. 9. There is mild mitral valve calcification. 10. There is mild tricuspid valve regurgitation. 11. Moderate pulmonary hypertension, estimated pulmonary arterial systolic pressure is 52 mmHg. 12. There is mild pulmonic regurgitation. 13. There is small pericardial effusion. * Carvedilol 12.5 mg PO q 12. (3) Type 2 diabetes mellitus: Code(s): E11.9 - Type 2 diabetes mellitus without complications Status: Acute Assessment and Plan: * Sliding scale insulin, hypoglycemic protocol. * Diet ordered (4) Diarrhea: Code(s): R19.7 - Diarrhea, unspecified Status: Acute Assessment and Plan: * Patient has chronic constipation and also has diarrhea. Patient was recently diagnosed with C diff associated diarrhea * Completed Vancomycin * Laxatives have been changed to p.r.n. as patient had multiple liquid bowel movements (5) ABDIRASHID (acute kidney injury): Code(s): N17.9 - Acute kidney failure, unspecified Status: Acute Assessment and Plan: * Patient has chronic kidney disease with creatinine 1.2-1.4, 1.31 today. * Presented with creatinine of 2.1 likely secondary to septic shock * CT scan does not show any stone or obstruction * Monitor urine output electrolytes and creatinine * Creatinine back to baseline. Will hold further crystalloids * Status post albumin * Off Levophed * Creatinine continues to creep up up to 1.89 5/ rule out obstruction * Urine improved today, not milky. * Urine culture grew Criselda glabrata. * Renal ultrasound negative for any hydronephrosis or bladder retention * 07/17/24: Continue Micafungin, IV access to assess for line placement for patient to receive so she can be discharged to nursing facility and complete regimen. * Despite these anti fungals are not ideal for candiduria trying to avoid amphotericin B treatment since not overtly sick. (6) Catheter-associated urinary tract infection: Qualifiers: Encounter type: initial encounter Indwelling urinary catheter type: indwelling urethral catheter Qualified Code(s): T83.511A - Infection and inflammatory reaction due to indwelling urethral catheter, initial encounter; N39.0 - Urinary tract infection, site not specified Code(s): T83.511A - Infection and inflammatory reaction due to indwelling urethral catheter, initial encounter; N39.0 - Urinary tract infection, site not specified Status: Acute Assessment and Plan: * See above * Catheter was changed the ER * Urine not milky today/ * Follow repeat urine culture grew Criselda glabrata * Will change her urine catheter * Possibly has fluconazole resistance * Changed to micafungin 07/14/2024 (7) C. difficile diarrhea: Onset Date: 01/2024 Code(s): A04.72 - Enterocolitis due to Clostridium difficile, not specified as recurrent Status: Acute Assessment and Plan: See above (8) Acute metabolic encephalopathy: Code(s): G93.41 - Metabolic encephalopathy Status: Acute Assessment and Plan: * Exam as above and significantly improved * Acute metabolic encephalopathy likely secondary to septic shocks and medications * Normal TSH and ammonia level * Head CT reviewed * Continue to Hold gabapentin and other sedative (9) Abnormal breast finding: Code(s): N64.59 - Other signs and symptoms in breast Status: Acute Assessment and Plan: * Patient has a right anterior chest wall seroma versus breast implant on the CT scan. This is a known finding and was evaluated in January of 2024 by general surgery and was found to be not causing issues hence no further treatment was recommended. (10) Metabolic acidosis: Code(s): E87.20 - Acidosis, unspecified Status: Acute Assessment and Plan: * Improved with IV fluids with bicarb. * Currently receiving sodium bicarbonate 650 mg PO BID. (11) Electrolyte abnormality: Code(s): E87.8 - Other disorders of electrolyte and fluid balance, not elsewhere classified Status: Acute Assessment and Plan: * Potassium 3.3. Potassium Chloride 40 meq PO x1 given. * Magnesium 1.5. Magnesium Sulfate 2 gram IVPB x 1 given. * Trend levels. (12) Anemia: Code(s): D64.9 - Anemia, unspecified Status: Acute Assessment and Plan: * 07/09: Patient dropped hemoglobin to 7.0 this morning, could be related to septic shock * -07/09 will transfuse 1 unit of packed RBCs * 07/10 and 07/11: Hemoglobin has been stable * 5/7 H&H 8.2/26.7. Continue to monitor Plan DVT prophylaxis -Lovenox held due to anemia. Restart Stress ulcer prophylaxis -PPI Nutrition -tolerating diabetic diet Code Status -patient is DNR DNI as per her advance directive from [facility] Subjective Date/time seen: 07/17/24 11:31 Interval history: Patient sitting up in bed. Patient reports pain in legs is a 9 , frequent, and aching. Patient denies chest pain, palpitations, headache, dizziness, nausea, or vomiting. Review of Systems Review of Systems: All systems reviewed & are unremarkable except as noted in HPI and below Exam Const: General: no acute distress and uncomfortable Resp: Effort & Inspection: normal respiratory effort Auscultation: clear to auscultation bilaterally Cardio: Rate: regular rate Rhythm: regular rhythm GI: GI Palp: Yes Soft to palpation Auscultation: normal bowel sounds Urinary Catheter: Urinary Catheter: patent and draining (darker yellow) Neuro: Speech: normal speech Extrem: Other: Bilateral AKA. Psych: Mental Status: mental status grossly normal Affect: normal affect Objective Data Vital Signs Vital Signs: Vital Signs - 24 hr 07/16/24 14:00 07/16/24 20:00 07/16/24 20:15 Temperature 97.0 F L 97.7 F Pulse Rate 63 64 Respiratory Rate 16 18 Blood Pressure 127/43 L 142/50 H Pulse Oximetry 99 100 Oxygen Delivery Room Air 07/16/24 21:03 07/17/24 04:43 07/17/24 09:19 Temperature 97.6 F Pulse Rate 64 62 62 Respiratory Rate 18 Blood Pressure 161/65 H Pulse Oximetry 97 Oxygen Delivery Intake/Output Intake/Output: Intake & Output 07/14/24 07/15/24 07/16/24 07/17/24 23:59 23:59 23:59 23:59 Intake Total 100 740 900 120 Output Total 2150 2260 1650 600 [facility]2050 -1520 -750 -480 Meds/Results Medications: Active Medications Generic Name Dose Route Start Last Admin Trade Name Freq PRN Reason Stop Dose Admin Acetaminophen 650 mg 07/06/24 21:49 Acetaminophen 650 Mg Suppository RECTAL Q6H PRN Mild Pain (1-3) or Fever Bisacodyl 10 mg 07/08/24 08:56 Bisacodyl 10 Mg Suppository RECTAL QAM PRN Constipation Carvedilol 12.5 mg 07/12/24 21:00 07/17/24 09:19 Carvedilol 12.5 Mg Tablet PO 12.5 mg Q12HR KASIE Administration Cyanocobalamin 1,000 mcg 07/07/24 09:00 07/17/24 09:19 Cyanocobalamin 1,000 Mcg Tablet PO 1,000 mcg DAILY AKSIE Administration Dextrose 12.5 gm 07/06/24 23:43 Dextrose 50% 25 Gm/50 Ml Syringe IV PUSH PRN PRN Hypoglycemia Protocol Enoxaparin Sodium 30 mg 07/12/24 09:00 07/17/24 09:19 Enoxaparin 30 Mg/0.3 Ml Syringe SUB-Q 30 mg DAILY KASIE Administration Furosemide 40 mg 07/13/24 09:00 07/17/24 09:19 Furosemide 40 Mg Tablet PO 40 mg DAILY KASIE Administration Glucagon 1 mg 07/06/24 23:43 Glucagon For Inj 1 Mg Vial IM PRN PRN Hypoglycemia Protocol Glucose 15 gm 07/06/24 23:43 Glucose Oral Gel 15 Gm Of Glucse In 37.5 Gm Tube PO PRN PRN Hypoglycemia Protocol Hydralazine HCl 10 mg 07/13/24 09:00 07/17/24 09:19 Hydralazine 10 Mg Tablet PO 10 mg TID KASIE Administration Dextrose 1,000 mls @ 100 mls/hr 07/06/24 23:43 Dextrose 5% 1,000 Ml IVPB PRN PRN Hypoglycemia Protocol Micafungin Sodium 100 mg/ 100 mls @ 100 mls/hr 07/14/24 09:00 07/17/24 09:25 Sodium Chloride IVPB 100 mls/hr DAILY KASIE Administration Insulin Aspart 2 - 5 units 07/11/24 12:00 07/17/24 09:11 Insulin Aspart (*Bkc) 100 Units/Ml SUB-Q Not Given TIDWM KASIE Protocol Isosorbide Dinitrate 10 mg 07/12/24 17:00 07/17/24 09:19 Isosorbide Dinitrate 10 Mg Tablet PO 10 mg TID KASIE Administration Levofloxacin 750 mg 07/11/24 12:00 07/17/24 09:19 Levofloxacin 750 Mg Tablet PO 07/21/24 09:01 750 mg Q48HR KASIE Administration Levothyroxine Sodium 100 mcg 07/07/24 06:30 07/17/24 05:31 Levothyroxine Sodium 100 Mcg Tablet PO 100 mcg DAILY@0630 KASIE Administration Miscellaneous Information 1 each 07/16/24 00:01 07/16/24 11:30 Po Vancomycin Needs To Be Renewed Or It Will Automatically Discontinue. XX 08/15/24 00:00 Not Given CLARIFY KASIE Pantoprazole Sodium 40 mg 07/07/24 09:00 07/17/24 09:20 Pantoprazole Sodium Iv 40 Mg Vial IV PUSH 40 mg QAM KASIE Administration Sodium Bicarbonate 650 mg 07/12/24 09:00 07/17/24 09:19 Sodium Bicarbonate Tab 650 Mg Tablet PO 650 mg BID KASIE Administration Sodium Chloride 10 ml 07/06/24 22:00 07/17/24 05:31 Central Line Flush IV PUSH 10 ml Q8HR KASIE Administration Sodium Chloride 20 ml 07/06/24 19:24 Central Line Flush IV PUSH PRN PRN after blood draws Tramadol HCl 50 mg 07/06/24 23:29 07/17/24 10:22 Tramadol Hcl (*Crx) 50 Mg Tablet PO 50 mg Q8H PRN Administration pain 4-10 Radiology Results: ITS Impressions Chest X-Ray 07/06/24 18:54 IMPRESSION: Bilateral perihilar pneumonia. The left central line tip is noted at the junction of the superior vena cava and left brachiocephalic vein. Head CT 07/06/24 19:40 IMPRESSION: No acute intracranial findings. Chest/Abdomen/Pelvis CT 07/06/24 21:16 IMPRESSION: CHEST: 1. Cardiomegaly with pericardial effusion. 2. No evidence of pneumonia or pneumothorax. 3. Right anterior chest wall seroma versus breast implant. ABDOMEN/PELVIS: 1. No evidence of appendicitis, diverticulitis or intestinal obstruction. 2. Thickened wall of the rectum which may indicate proctitis. Clinical correlation advised. 3. Air seen in the left pelvicalyceal system with hydronephrotic changes. Infection cannot be excluded. Further evaluation advised. 4. Seen in the area bladder with Kaplan's catheter. 5. Seroma in the anterior abdominal wall with wall calcification. Renal Ultrasound 07/12/24 11:15 IMPRESSION: 1. Normal kidneys without hydronephrosis. Labs Labs: Laboratory Results - last 24 hr 07/16/24 07/16/24 07/17/24 16:37 20:17 05:42 WBC 4.4 L RBC 2.78 L Hgb 8.2 L Hct 26.7 L MCV 96.0 MCH 29.5 MCHC 30.7 L RDW 17.5 H Plt Count 170 MPV 10.0 Immature Gran % (Auto) 0.2 Neut % (Auto) 64.8 Lymph % (Auto) 20.0 [place] % (Auto) 10.0 H Eos % (Auto) 4.3 Baso % (Auto) 0.7 Lymph # (Auto) 0.88 L Taylor # (Auto) 0.4 Eos # (Auto) 0.2 Baso # (Auto) 0.0 Abs Immat Gran (auto) 0.01 Absolute Neuts (auto) 2.9 Absolute Nucleated RBC 0.000 Nucleated RBC % 0.0 Sodium 139 Potassium 3.3 L Chloride 106 Carbon Dioxide 18 L Anion Gap 15 H BUN 27 H Creatinine 1.31 H Estim Creat Clear Calc 30 Estimated GFR 40 L Glucose 84 POC Capillary Glucose 117 H 107 H Calcium 8.3 L Magnesium 1.5 L 07/17/24 07/17/24 07:26 11:16 WBC RBC Hgb Hct MCV MCH MCHC RDW Plt Count MPV Immature Gran % (Auto) Neut % (Auto) Lymph % (Auto) [place] % (Auto) Eos % (Auto) Baso % (Auto) Lymph # (Auto) [place] # (Auto) Eos # (Auto) Baso # (Auto) Abs Immat Gran (auto) Absolute Neuts (auto) Absolute Nucleated RBC Nucleated RBC % Sodium Potassium Chloride Carbon Dioxide Anion Gap BUN Creatinine Estim Creat Clear Calc Estimated GFR Glucose POC Capillary Glucose 75 110 H Calcium Magnesium Quality VTE Prophylaxis VTE prophylaxis: pharmacologic ordered (Lovenox 30 mg subQ daily.)
[2024-07-17 14:00] VITALS: BP 150/41; PULSE 59; RESP 18; TEMP 36.2; O2SAT 100
[2024-07-17] MEDS: LIDOCAINE 1% LOCAL INJ 2 ML AMPUL 5 ML INFILTRATE (16:35)
[2024-07-17 17:06] LABS: Glucose Point of Care 86 mg/dl (65-105)
[2024-07-17 20:36] VITALS: PULSE 63
[2024-07-17] MEDS: SALINE LOCK FLUSH 10 ML IV PUSH (20:36)
[2024-07-17 21:00] LABS: Glucose Point of Care 93 mg/dl (65-105)
[2024-07-17 21:50] VITALS: PULSE 65; RESP 20; O2SAT 97
[2024-07-17 22:00] VITALS: BP 143/61; PULSE 63; RESP 18; TEMP 36.6; O2SAT 100
[2024-07-18 05:23] LABS: Basophils Percent Auto 0.7 % (0.2-1.2); Eosinophils Absolute Auto 0.2 K/mm3 (0-0.3); Eosinophils Percent Auto 4.1 % (0-4.4); Hematocrit 26.7 % (37.0-47.0); Hemoglobin 8.3 g/dL (12.0-15.0); Immature Granulocyte Absolute 0.02 K/mm3 (0.00-0.031); Immature Granulocyte Percent A 0.5 % (0-0.5); Lymphocytes Absolute Auto 0.95 K/mm3 (0.9-3.2); Lymphocytes Percent Auto 21.4 % (18.3-44.2); Mean Corpuscular HGB Conc 31.1 g/dl (32-36); Mean Corpuscular Hemoglobin 29.7 pg (26-34); Mean Corpuscular Volume 95.7 fl (80-100); Mean Platelet Volume 10.2 fl (7.4-10.4); Monocytes Absolute Auto 0.4 K/mm3 (0.1-0.6); Monocytes Percent Auto 9.7 % (2.6-8.5); Neutrophils Absolute Auto 2.8 K/mm3 (1.3-6.7); Neutrophils Percent Auto 63.6 % (45.5-73.1); Platelet Count Result 170 k/mm3 (150-375); Red Blood Count 2.79 M/mm3 (4.2-5.4); Red Cell Distribution Width 18.4 % (11.5-14.5); White Blood Count 4.4 K/mm3 (4.5-10.0)
[2024-07-18 05:35] LABS: Alanine Aminotransferase 12 U/L (6-35); Albumin Level 3.6 g/dL (3.5-5.1); Alkaline Phosphatase 37 U/L (38-126); Anion Gap 16 mmol/L (4-12); Aspartate Amino Transferase 18 U/L (14-36); Bilirubin,Total 0.7 mg/dL (0.2-1.3); Blood Urea Nitrogen 22 mg/dL (7-17); Calcium 8.5 mg/dL (8.4-10.2); Carbon Dioxide 18 mmol/L (22-30); Chloride 106 mmol/L (98-107); Estimated CRCL calculation 32 ml/min; Estimated Glomerular Filt Rate 44; Glucose 83 mg/dL (65-110); Magnesium 1.7 mg/dL (1.6-2.3); Potassium 3.9 mmol/L (3.4-5.0); Sodium 140 mmol/L (137-145)
[2024-07-18] MEDS: traMADol HCL (*CRX) 50 MG TABLET PO (05:44)
[2024-07-18] MEDS: LEVOTHYROXINE SODIUM 100 MCG TABLET PO (05:44)
[2024-07-18] MEDS: CENTRAL LINE FLUSH 10 ML IV PUSH ×2 (05:45→17:06)
[2024-07-18] MEDS: SALINE LOCK FLUSH 10 ML IV PUSH ×2 (05:45→17:06)
[2024-07-18 06:00] VITALS: BP 151/58; PULSE 60; RESP 18; TEMP 36.6; O2SAT 100
[2024-07-18 07:58] LABS: Glucose Point of Care 87 mg/dl (65-105)
[2024-07-18 09:49] VITALS: PULSE 60
[2024-07-18] MEDS: FUROSEMIDE 40 MG TABLET PO (09:49)
[2024-07-18] MEDS: CYANOCOBALAMIN 1,000 MCG TABLET 1000 MCG PO (09:49)
[2024-07-18] MEDS: carvediloL 12.5 MG TABLET PO (09:49)
[2024-07-18] MEDS: ISOSORBIDE DINITRATE 10 MG TABLET PO ×3 (09:49→17:05)
[2024-07-18] MEDS: hydrALAZINE 10 MG TABLET PO ×3 (09:49→17:05)
[2024-07-18] MEDS: SODIUM BICARBONATE TAB 650 MG TABLET PO ×2 (09:49→17:06)
[2024-07-18] MEDS: ENOXAPARIN 40 MG/0.4 ML SYRINGE SUB-Q (09:50)
[2024-07-18] MEDS: PANTOPRAZOLE SODIUM IV 40 MG VIAL IV PUSH (09:54)
[2024-07-18] MEDS: MICAFUNGIN SODIUM 100 MG in SODIUM CHLORIDE 0.9% IV 100 ML IVPB (09:55)
--- NOTE | 2024-07-18 11:01 | P.DS_ITS ---
DS: Admitting Diagnosis Discharge Date 07/18/24 Admitting Diagnosis Altered mental status. DS: Discharge Diagnosis Discharge Diagnosis (1) Septic shock: Code(s): A41.9 - Sepsis, unspecified organism; R65.21 - Severe sepsis with septic shock Status: Acute (2) Combined systolic and diastolic congestive heart failure: Qualifiers: Heart failure chronicity: acute on chronic Qualified Code(s): I50.43 - Acute on chronic combined systolic (congestive) and diastolic (congestive) heart failure Code(s): I50.40 - Unspecified combined systolic (congestive) and diastolic (congestive) heart failure Status: Acute (3) Type 2 diabetes mellitus: Code(s): E11.9 - Type 2 diabetes mellitus without complications Status: Acute (4) Diarrhea: Code(s): R19.7 - Diarrhea, unspecified Status: Acute (5) Acute kidney injury: Code(s): N17.9 - Acute kidney failure, unspecified Status: Acute (6) Catheter-associated urinary tract infection: Qualifiers: Indwelling urinary catheter type: indwelling urethral catheter Encounter type: initial encounter Qualified Code(s): T83.511A - Infection and inflammatory reaction due to indwelling urethral catheter, initial encounter; N39.0 - Urinary tract infection, site not specified Code(s): T83.511A - Infection and inflammatory reaction due to indwelling urethral catheter, initial encounter; N39.0 - Urinary tract infection, site not specified Status: Acute (7) Acute metabolic encephalopathy: Code(s): G93.41 - Metabolic encephalopathy Status: Acute (8) Metabolic acidosis: Code(s): E87.20 - Acidosis, unspecified Status: Acute (9) Electrolyte abnormality: Code(s): E87.8 - Other disorders of electrolyte and fluid balance, not elsewhere classified Status: Acute (10) Anemia: Code(s): D64.9 - Anemia, unspecified Status: Acute DS: Summary Hospital Course Hospital Course: Patient admitted with septic shock secondary to UTI. Patient has a chronic indwelling urinary catheter. Patient also has a history of ESBL. Patient required Levophed in the ICU. Patients reyes changed. Patient treated with IV antibiotics. 07/06: Blood culture growing group G Streptococcus and Acinetobacter baumannii. Urine culture grew Criselda Glabrata and patient started on Micafungin IV daily. 07/09: Patient dropped hemoglobin to 7.0, could be related to septic shock 07/09 Patient transfuse 1 unit of packed RBCs Cardiology consulted. Avoid SGLT2 as she had recent UTI and NO ARNI/ARB/MRA due to renal dysfunction. Cardiac medications adjusted. Impressions Chest X-Ray 07/06/24 18:54 IMPRESSION: Bilateral perihilar pneumonia. The left central line tip is noted at the junction of the superior vena cava and left brachiocephalic vein. Head CT 07/06/24 19:40 IMPRESSION: No acute intracranial findings. Chest/Abdomen/Pelvis CT 07/06/24 21:16 IMPRESSION: CHEST: 1. Cardiomegaly with pericardial effusion. 2. No evidence of pneumonia or pneumothorax. 3. Right anterior chest wall seroma versus breast implant. ABDOMEN/PELVIS: 1. No evidence of appendicitis, diverticulitis or intestinal obstruction. 2. Thickened wall of the rectum which may indicate proctitis. Clinical correlation advised. 3. Air seen in the left pelvicalyceal system with hydronephrotic changes. Infection cannot be excluded. Further evaluation advised. 4. Seen in the area bladder with Reyes's catheter. 5. Seroma in the anterior abdominal wall with wall calcification. EKG: SR 89WITH ATRIAL PREMATURE COMPLEXES WITH FIRST DEGREE AV BLOCK QTc 425. Renal Ultrasound 07/12/24 11:15 IMPRESSION: 1. Normal kidneys without hydronephrosis. Patient discharged back to SNF with midline to complete remaining 9 doses of Micafungin IV. Status at Discharge Functional status at discharge: wheelchair bound Overall status at discharge: patient is progressing back to baseline Time Spent with Patient Time attestation: Total time spent providing and/or coordinating discharge services: Time spent: Greater than 30 minutes Exam Const: General: comfortable and no acute distress Resp: Effort & Inspection: normal respiratory effort Auscultation: clear to auscultation bilaterally Cardio: Rate: regular rate Rhythm: regular rhythm GI: GI Palp: Yes Soft to palpation Auscultation: normal bowel sounds Urinary Catheter: Urinary Catheter: patent and draining (rpi urine) Extrem: General: no pedal edema Psych: Mental Status: mental status grossly normal Affect: normal affect DS: Data Data Completed and Pending Labs on day of discharge: Labs from last 24 hours 07/18/24 07/18/24 07/17/24 07:53 04:42 20:18 WBC 4.4 L RBC 2.79 L Hgb 8.3 L Hct 26.7 L MCV 95.7 MCH 29.7 MCHC 31.1 L RDW 18.4 H Plt Count 170 MPV 10.2 Immature Gran % (Auto) 0.5 Neut % (Auto) 63.6 Lymph % (Auto) 21.4 [place] % (Auto) 9.7 H Eos % (Auto) 4.1 Baso % (Auto) 0.7 Lymph # (Auto) 0.95 [place] # (Auto) 0.4 Eos # (Auto) 0.2 Baso # (Auto) 0.0 Abs Immat Gran (auto) 0.02 Absolute Neuts (auto) 2.8 Absolute Nucleated RBC 0.000 Nucleated RBC % 0.0 Sodium 140 Potassium 3.9 Chloride 106 Carbon Dioxide 18 L Anion Gap 16 H BUN 22 H Creatinine 1.22 H Estim Creat Clear Calc 32 Estimated GFR 44 L Glucose 83 POC Capillary Glucose 87 93 Calcium 8.5 Magnesium 1.7 Total Bilirubin 0.7 AST 18 ALT 12 Alkaline Phosphatase 37 L Total Protein 7.0 Albumin 3.6 07/17/24 07/17/24 17:02 11:16 WBC RBC Hgb Hct MCV MCH MCHC RDW Plt Count MPV Immature Gran % (Auto) Neut % (Auto) Lymph % (Auto) [place] % (Auto) Eos % (Auto) Baso % (Auto) Lymph # (Auto) [place] # (Auto) Eos # (Auto) Baso # (Auto) Abs Immat Gran (auto) Absolute Neuts (auto) Absolute Nucleated RBC Nucleated RBC % Sodium Potassium Chloride Carbon Dioxide Anion Gap BUN Creatinine Estim Creat Clear Calc Estimated GFR Glucose POC Capillary Glucose 86 110 H Calcium Magnesium Total Bilirubin AST ALT Alkaline Phosphatase Total Protein Albumin Discharge Plan Discharge Attending physician on discharge: Ismael Taylor Consulting providers: Horacio Colindres; Fabio Cruz; Veto Vegas Discharging Clinician: Vaishali Ritter Anticipated Discharge Date/Time: 07/18/24 14:30 Patient Disposition: NH Intermediate/Asst Living Activity: may shower Diet: diabetic and other - see discharge instructions Discharge Instructions: * complete all doses of antibiotics and antifungal. * Report any fever >101, urine odor, or change in urine color/ consistency. * Reyes care. * Keep skin clean and dry. Apply antifungal cream to treat and protect. Thank you for entrusting [facility] with your healthcare! Patient Instructions: Antibiotic Form, Heart Failure (DC), Reyes Catheter Placement and Care (DC), Sepsis (DC) Patient Language: Slovenian Stand Alone Forms: General Discharge Information Follow-up/Referrals: Veto Vegas MD [Physician] - 2 Weeks Fabio Cruz MD [Physician] - 2 Weeks Jorge Ziegler MD [Primary Care Provider] - 1 Week Discharge Medications: New flucytosine 500 mg capsule 1,500 mg PO Q12H 7 Days Qty: 42 0RF furosemide 40 mg Tablet 40 mg PO DAILY Qty: 30 0RF carvedilol [Coreg] 12.5 mg Tablet 12.5 mg PO Q12HR Qty: 60 0RF micafungin [Mycamine] 100 mg Recon Soln 100 mg IV DAILY Qty: 9 0RF Rx Instructions: Next dose on 07/19/24 9 AM. isosorbide dinitrate 10 mg Tablet 10 mg PO TID Qty: 90 0RF hydralazine 10 mg Tablet 10 mg PO TID Qty: 90 0RF levofloxacin 750 mg tablet 750 mg PO .q48hr Qty: 2 0RF Rx Instructions: First dose on 07/19/24 sodium bicarbonate 650 mg Tablet 650 mg PO BID Qty: 28 0RF Continued atorvastatin 40 mg tablet 40 mg PO HS levothyroxine 100 mcg tablet 100 mcg PO DAILY gabapentin 300 mg capsule 300 mg PO TID potassium chloride 10 mEq capsule, extended release 10 meq PO DAILY acetaminophen 325 mg capsule 650 mg PO Q4H PRN (Reason: pain) cyanocobalamin (vitamin B-12) 1,000 mcg capsule 1,000 mcg PO DAILY calcium carbonate-vitamin D3 [Calcium 600 + D(3)] 600 mg-5 mcg (200 unit) capsule 1 cap PO DAILY Multi-Vitamin HP/Minerals Capsule 1 cap PO DAILY pantoprazole [Protonix] 40 mg tablet,delayed release (DR/EC) 40 mg PO HS 56 Days Qty: 56 0RF tramadol 50 mg Tablet 50 mg PO Q8H PRN (Reason: pain) magnesium hydroxide [Milk of Magnesia] 400 mg/5 mL Suspension 400 mg PO HS PRN (Reason: Constipation) Rx Instructions: if no BM in 3 days magnesium citrate [Citroma] Solution 150 ml PO DAILY PRN (Reason: Constipation) Rx Instructions: if no results from enema Fleet Enema 19-7 gram/118 mL Enema 118 ml RECTAL DAILY PRN (Reason: Constipation) Rx Instructions: if no results 1 day after suppository ferrous sulfate 325 mg (65 mg iron) Tablet,Delayed Release (Dr/Ec) 325 mg PO BID Qty: 90 0RF bisacodyl 10 mg suppository 10 mg RECTAL DAILY PRN (Reason: constipation) Rx Instructions: if no results from MOM insulin aspart U-100 [Novolog U-100 Insulin aspart] 100 unit/mL solution See Rx Instructions .ROUTE .COMPLEX Rx Instructions: 150-200 2 units, 201-250 4 units, 251-300 6 units, 301-350 8 units, 351-400 10 units, 401-500 12 units, over 500 notify md Discontinued spironolactone 25 mg tablet 25 mg PO DAILY furosemide [Lasix] 40 mg tablet 60 mg PO BID Entresto 24-26 mg Tablet 1 tablet PO Q12H carvedilol [Coreg] 6.25 mg tablet 6.25 mg PO BID Rx Instructions: must administer with a meal/food Jardiance 10 mg tablet 10 mg PO DAILY Date of admission: 07/06/24 21:52 Primary Care Provider: Jorge Ziegler Admitting Provider: Marley Jauregui Attending physician on admission: Marley Jauregui Condition: Improved Hospitalist MIPS Heart Failure (Exclusion) Patient has history of Heart Transplant or Left Ventricular Assistive Device?: No IF YES, STOP HERE Heart Failure (Qualifier) Patient has current or prior documentation of LVEF less than or equal to 40%, or mod/servere depressed LVSF?: Yes IF NO, STOP HERE If Yes, Heart Failure (Qualifier) Patient was prescribed or already taking an Angiotensin-Converting Enzyme ([place]) Inhibitor, or Antiotensin Receptor Consuelo (ARB): No Patient was prescribed or already taking bisoprolol, carvedilol, or sustained release metoprolol succinate: Yes If Medications not prescribed/taking Reason patient not prescribed/taking [place] or ARB: Patient reasons: pt declined or other pt reason
[2024-07-18 12:08] LABS: Glucose Point of Care 76 mg/dl (65-105)
[2024-07-18] MEDS: PROCHLORPERAZINE EDISYLATE 10 MG/2 ML VIAL IV PUSH (12:46)
[2024-07-18 14:00] VITALS: BP 122/34; PULSE 61; RESP 18; TEMP 36.4; O2SAT 98
[2024-07-18] MEDS: NEOMYCIN/POLYMYXIN/BACITRACIN OINTMENT PACKET 1 PACKET (17:06)
[2024-07-18 17:22] LABS: Glucose Point of Care 98 mg/dl (65-105)
[2024-07-18 20:24] VITALS: BP 157/46; PULSE 65; RESP 18; TEMP 36.5; O2SAT 100
[2024-07-18 20:48] LABS: Glucose Point of Care 154 mg/dl (65-105)
== END 2024-07-18 21:00 | DRG 698 ==
LOC: ANHED 21:14 → ANHICU 22:41 → ANH2MED 07-11 16:00
PROVIDERS: Internal Medicine; Admitting Provider Internal Medicine; Emergency Provider Student in an Organized Health Care Education/Training Program; PCP Family Medicine; Visit Provider Nurse Practitioner Family
DX: T83.511A Infection and inflammatory reaction due to indwelling urethral catheter, initial encounter (principal); A40.8 Other streptococcal sepsis; R65.21 Severe sepsis with septic shock; G93.41 Metabolic encephalopathy; B37.49 Other urogenital candidiasis; N17.9 Acute kidney failure, unspecified; I13.0 Hypertensive heart and chronic kidney disease with heart failure and stage 1 through stage 4 chronic kidney disease, or unspecified chronic kidney disease; I50.42 Chronic combined systolic (congestive) and diastolic (congestive) heart failure; E87.20 Acidosis, unspecified; A04.72 Enterocolitis due to Clostridium difficile, not specified as recurrent; N18.31 Chronic kidney disease, stage 3a; E11.22 Type 2 diabetes mellitus with diabetic chronic kidney disease; E11.40 Type 2 diabetes mellitus with diabetic neuropathy, unspecified; E11.51 Type 2 diabetes mellitus with diabetic peripheral angiopathy without gangrene; E87.5 Hyperkalemia; E78.5 Hyperlipidemia, unspecified; E03.9 Hypothyroidism, unspecified; D64.9 Anemia, unspecified; K21.9 Gastro-esophageal reflux disease without esophagitis; L89.302 Pressure ulcer of unspecified buttock, stage 2; K52.89 Other specified noninfective gastroenteritis and colitis; F03.90 Unspecified dementia, unspecified severity, without behavioral disturbance, psychotic disturbance, mood disturbance, and anxiety; I25.2 Old myocardial infarction; Z85.850 Personal history of malignant neoplasm of thyroid; Z89.612 Acquired absence of left leg above knee; Z89.611 Acquired absence of right leg above knee; Z85.3 Personal history of malignant neoplasm of breast; Z79.4 Long term (current) use of insulin
CPT/HCPCS: 31500; 36415; 36430; 36556; 36569; 36600; 70450; 71045; 71250; 74176; 76775; 80048; 80053; 81001; 82140; 82565; 82805; 82948; 83605; 83735; 84100; 84443; 85014; 85018; 85025; 85027; 85610; 85730; 86140; 86850; 86900; 86901; 86923; 87040; 87086; 87181; 87186; 87641; 93005; 96365; 96367; 99291; A9270; C1751; C8929; J0295; J0613; J0780; J1450; J1650; J1815; J2003; J2185; J2248; J2470; J3370; J3475; J7030; J7050; J7070; P9016; P9047; Q9957

== ENCOUNTER 2024-10-05 16:12 | Inpatient (IN) | payer MEDICARE, MEDICAID, SELFPAY ==
[2024-10-05] VITALS (61 sets, daily range): BP systolic 73–143; BP diastolic 34–113; PULSE 60–88; RESP 10–32; TEMP 36.6–36.9; O2SAT 87–100; BMI 28.1
--- NOTE | ~2024-10-05 | CT_ITS ---
EXAMINATION: CT brain wo con DATE: 10/09/2024 14:43 INDICATION: Altered mental status TECHNIQUE: Computed tomography (CT) of the head was performed without intravenous contrast. Sagittal and coronal reconstructions were performed. The mA was adjusted according to patient size. Iterative reconstruction technique was employed. The dose-length product was 1437.67 mGy-cm. COMPARISON: head CT dated 10/05/2024 FINDINGS: No acute intracranial hemorrhage, acute infarction or abnormal extra axial fluid collection. There is mild to moderate scattered white matter hypoattenuation consistent with chronic small vessel ischemi c disease. Symmetric prominence of the sulci and ventricles consistent with mild to moderateage-appro priate diffuse cerebral volume loss. No mass/mass effect. Likely senescent dystrophic calcifications at the bilateral basal ganglia and at the bilateral cerebellar hemispheres. There is mucous filling o ne of the anterior left ethmoid air cells. The orbits and mastoid air cells are normal. IMPRESSION: 1. No acute intracranial process. 2. Age-related changes the brain including mild to moderate diffuse volume loss and mild to moderate scattered white matter hypoattenuation consistent with chronic small vessel ischemic disease. Reviewed, dictated and finalized at location A. IMPRESSION: 1. No acute intracranial process. 2. Age-related changes the brain including mild to moderate diffuse volume loss and mild to moderate scattered white matter hypoattenuation consistent with ch ronic small vessel ischemic disease.
--- NOTE | ~2024-10-05 | XR_ITS ---
EXAMINATION: XR chest port-a-cath/central Exam Date/Time: 10/05/2024 21:19 CDT HISTORY: s/p R IJ Comparison: Same date at 5:55 PM. FINDINGS/IMPRESSION: Right IJ central line which traverses laterally, terminating in an axillary vein. Increasing perihilar opacities may represent atelectasis or edema No other significant interval change. Reviewed, dictated and finalized at location K.
--- NOTE | ~2024-10-05 | XR_ITS ---
EXAMINATION: XR chest 1V portable Exam Date/Time: 10/05/2024 17:42 CDT HISTORY: AMS Comparison: 07/06/2024. RESULT: Lines, tubes, and devices: Surgical clips over the left axilla. Lungs and pleura: Clear. Cardiomediastinal silhouette: Stable. Other: No acute osseous or upper abdominal finding. Stable right breast calcifications. IMPRESSION: No acute cardiopulmonary process. Reviewed, dictated and finalized at location K.
--- NOTE | ~2024-10-05 | CT_ITS ---
EXAMINATION: CT brain wo con DATE: 10/05/2024 16:21 INDICATION: AMS . TECHNIQUE: Computed tomography (CT) of the head was performed without intravenous contrast. The mA wa s adjusted according to patient size. Iterative reconstruction technique was employed. The dose-lengt h product was 605.33 mGy-cm. COMPARISON: 07/06/2024. FINDINGS: No acute intracranial hemorrhage or extra-axial fluid collection. No hydrocephalus, mass, or herniation. No acute ischemic infarct. Unremarkable dural venous sinus attenuation. No acute osseous abnormality. Left anterior ethmoid opacification, mild bilateral mastoid fluid, the remaining aerated spaces are c lear. Moderate atrophy and chronic white matter change. Atherosclerotic intracranial calcification. Bilater al basal ganglia and cerebellar calcification. IMPRESSION: No acute intracranial process. Reviewed, dictated and finalized at location K.
--- NOTE | ~2024-10-05 | XR_ITS ---
EXAMINATION: XR fl Dobhoff insert/rad w img DATE: 10/11/2024 14:01 INDICATION: Unable to place nasogastric tube at bedside TECHNIQUE: A Dobbhoff type feeding tube was advanced into the duodenum utilizing intermittent fluoroscopy. Final image demonstrates the feeding tube in position with the weighted tip at the gastric antrum and some redundancy to the catheter within the stomach to allow for further subsequent passive advancement wi th peristalsis. The tube was flushed with 10 mL water and fixed to the nares with adhesive tape. 2 fl uoroscopic images were recorded. The amount of fluoroscopy time used during this procedure was 2.3 mi nutes. There were no immediate complications. Total DAP was 14.747 Gycm^2 FINDINGS/IMPRESSION: Successful fluoroscopy-guided Dobbhoff feeding tube placement with distal tip at the gastric antrum. Reviewed, dictated and finalized at location A.
--- NOTE | 2024-10-05 16:14 | ECG_ITS ---
Test Date: 2024-10-05 18:02:00 Measurements Intervals [place] Rate: 62 P: 47 ME: 249 QRS: -71 QRSD: 91 T: 151 QT: 415 QTc: 424 Interpretive Statements SINUS RHYTHM WITH FIRST DEGREE AV BLOCK LEFT AXIS DEVIATION [QRS AXIS < -30] LOW QRS VOLTAGE IN PRECORDIAL LEADS [QRS DEFLECTION < 1.0 mV IN CHEST LEADS] ANTEROSEPTAL MYOCARDIAL INFARCTION , PROBABLY OLD [40+ ms Q WAVE IN V1-V4] Compared to ECG 07/06/2024 18:59:50 Atrial premature complex(es) no longer present Myocardial infarct finding still present Electronically Signed On 10-06-2024 14:15:10 CDT by Dre Connolly M.D.
[2024-10-05 16:39] LABS: Hematocrit 27.7 % (37.0-47.0); Hemoglobin 8.8 g/dL (12.0-15.0); Immature Granulocyte Percent A 0.6 % (0-0.5); Lymphocytes Absolute Auto 1.12 K/mm3 (0.9-3.2); Mean Corpuscular HGB Conc 31.8 g/dl (32-36); Mean Corpuscular Hemoglobin 31.1 pg (26-34); Mean Corpuscular Volume 97.9 fl (80-100); Nucleated Red Blood Cells Absolute Auto 0.000 K/mm3 (0.0-0.012); Nucleated Red Blood Cells Perc 0.0 % (0.0-0.2); Platelet Count Result 166 k/mm3 (150-375); Red Blood Count 2.83 M/mm3 (4.2-5.4); White Blood Count 5.2 K/mm3 (4.5-10.0)
[2024-10-05 16:49] LABS: Ammonia 13 umol/L (9-30)
[2024-10-05] MEDS: SODIUM CHLORIDE 0.9% IV 500 ML 999 ML IV CONT ×2 (16:53→19:09)
[2024-10-05] MEDS: NALOXONE HCL 0.4 MG/ML VIAL IV PUSH (16:53)
[2024-10-05 16:54] LABS: Alanine Aminotransferase 17 U/L (6-35); Albumin Level 3.2 g/dL (3.5-5.1); Alkaline Phosphatase 38 U/L (38-126); Anion Gap 4 mmol/L (4-12); Aspartate Amino Transferase 31 U/L (14-36); Bilirubin,Total 0.6 mg/dL (0.2-1.3); Blood Urea Nitrogen 38 mg/dL (7-17); Calcium 8.0 mg/dL (8.4-10.2); Carbon Dioxide 31 mmol/L (22-30); Chloride 97 mmol/L (98-107); Estimated Glomerular Filt Rate 45; Glucose 182 mg/dL (65-110); Lipase 13 U/L (23-300); Magnesium 1.6 mg/dL (1.6-2.3); Potassium 3.9 mmol/L (3.4-5.0); Sodium 132 mmol/L (137-145); Total Protein 7.1 g/dL (6.3-8.2)
[2024-10-05 17:02] LABS: INR 1.5; Prothrombin Time 18.1 Seconds (11.1-14.7)
[2024-10-05 17:03] LABS: Partial Thromboplastin Time 31.3 Seconds (22.3-36.8)
[2024-10-05 17:04] LABS: NT Pro B Type Natriuretic Pept > 30000 pg/mL (19.9-100); Troponin I 0.012 ng/mL (0.000-0.034)
--- OUTSIDE RECORDS SUMMARY | 2024-10-05 17:06 | XMS_ITS | Clinical Summary ---
Author Organization [facility] Address [facility] [place] [address] Care Team Providers Care Clinical Nursing Professor Name Role Phone Damon Swanson MD Unavailable [phone] Don Branham MD Primary Care Provider [phone] Allergies Active Allergy Reactions Criticality Noted Date [...] 06/28/2019 Generalized weakness 06/06/2019 Hyperglycemia 06/05/2019 Sepsis ([facility]) 05/07/2019 Ulcer of lower limb, left, l imited to breakdown of skin ([facility]) 03/12/2019 Peripheral vascular disease 03/12/2019 Malignant neoplasm of upper- 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, estrogen receptor negative ([facility]) 11/13/2017 Immunizations Immunization Administration Dates Next Due [...] A M CDT Height 157.5 cm (5' 2) 07/17/2019 1:35 AM CDT Body Mass Index [...] Documents on File Type Date Recorded Patient Rivet Sorter Expl anation Advance Directives and Livin g [...] 10:19 PM 05/17/2019 3:10 PM Care Teams Clinical Nursing Professor Relationship Specialty Start Date End Date Don Branham MD [address] [place] [address] PCP - General EMERGENCY MEDICINE 05/10/19 Damon Swanson MD INTERNAL MEDICINE 12/10/18
[2024-10-05 17:39] LABS: Alveolar/Arterial O2 Gradient 31.1 mmHg; Carboxyhemoglobin 0.9 % THb (0-2.0); Fractional Inspired Oxygen 21 %; HCO3 ABG 29.2 mEq/l (22.0-26.0); Methemoglobin ABG 0.3 %THb (0-1.5); Oxygen Content ABG 13.5 %vol (16.0-22.0); Oxygen Saturation ABG 92.4 % (95.0-100.0); PCO2 ABG 46.3 mmHg (35.0-45.0); PO2 ABG 63.2 mmHg (80.0-100.0); PO2 FiO2 Ratio Arterial Blood 3.01 %; Reduced Hemoglobin 10.4 %THb (0-5.0); Site Drawn RIGHT RADIAL
[2024-10-05 17:40] LABS: Modified Allen's Test Pass
--- NOTE | 2024-10-05 18:30 | ED.NEUROSD ---
HPI - Neuro Symptoms/Deficit General Chief Complaint: Suspected CVA <Day Suarez MD - Last Filed: 10/05/24 23:34> Stated Complaint: AMS <Day Suarez MD - Last Filed: 10/05/24 23:34> Time Seen by Provider: 10/05/24 16:14 <Day Suarez MD - Last Filed: 10/05/24 23:34> Source: EMS, RN notes reviewed and old records reviewed <Day Suarez MD - Last Filed: 10/05/24 23:34> Mode of arrival: EMS <Day Suarez MD - Last Filed: 10/05/24 23:34> Limitations: altered mental status <Day Suarez MD - Last Filed: 10/05/24 23:34> History of Present Illness HPI Narrative: This is a 69 year old female with history of CHF, hyperlipidemia, bilateral AKA, chronic indwelling reyes catheter who presents for evaluation of altered mental status. Nursing reports that patient's last known normal was around noon. EMS was called around 330 pm. EMS reports patient would only respond to painful stimuli. <Day Suarez MD - Last Filed: 10/05/24 23:34> Onset (ago): hour(s) <Day Suarez MD - Last Filed: 10/05/24 23:34> Last Observed Normal: 12:00 <Day Suarez MD - Last Filed: 10/05/24 23:34> Related Data Home Medications: Home Medications ?Medication ?Instructions ?Recorded ?Confirmed ?Last Taken ?Type atorvastatin 40 mg tablet 40 mg PO HS 12/05/21 07/06/24 02/22/24 History levothyroxine 100 mcg tablet 100 mcg PO DAILY 12/05/21 07/06/24 Unknown History gabapentin 300 mg capsule 300 mg PO TID 05/16/22 07/06/24 Unknown History potassium chloride 10 mEq 10 meq PO DAILY 05/16/22 07/06/24 Unknown History capsule,extended release tramadol 50 mg tablet 50 mg PO Q8H PRN pain 01/30/24 07/06/24 Unknown History magnesium citrate (Citroma oral 150 ml PO DAILY PRN Constipation 02/15/24 07/06/24 Unknown History solution) magnesium hydroxide 400 mg/5 mL 400 mg PO HS PRN Constipation 02/15/24 07/06/24 Unknown History oral suspension (Milk of Magnesia) sodium phosphates 19 gram-7 118 ml RECTAL DAILY PRN 02/15/24 07/06/24 Unknown History gram/118 mL enema (Fleet Enema) Constipation acetaminophen 325 mg capsule 650 mg PO Q4H PRN pain 05/04/24 07/06/24 Unknown History calcium 600 mg (as 1 cap PO DAILY 05/04/24 07/06/24 Unknown History carbonate)-vitamin D3 5 mcg (200 unit) capsule (Calcium 600 + D(3)) cyanocobalamin (vitamin B-12) 1,000 mcg PO DAILY 05/04/24 07/06/24 Unknown History 1,000 mcg capsule multivitamin,tx-minerals 1 cap PO DAILY 05/04/24 07/06/24 Unknown History (Multi-Vitamin HP/Minerals capsule) bisacodyl 10 mg rectal suppository 10 mg RECTAL DAILY PRN constipation 07/06/24 07/06/24 Unknown History insulin aspart U-100 100 unit/mL See Rx Instructions .Route .COMPLEX 07/06/24 07/06/24 Unknown History subcutaneous solution (Novolog U-100 Insulin aspart) <Day Suarez MD - Last Filed: 10/05/24 23:34> Allergies/Adverse Reactions: Allergies Allergy/AdvReac Type Severity Reaction Status Date / Time codeine Allergy Unknown Verified 05/21/24 10:56 <Day Suarez MD - Last Filed: 10/05/24 23:34> [facility] Past Medical History Medical History: Medical History Chronic indwelling Reyes catheter CKD (chronic kidney disease) stage 3, GFR 30-59 ml/min With baseline creatinine between 1.3 and 1.6 Iron deficiency anemia History of ESBL E. coli infection Recurrent Clostridioides difficile infection Anemia Pneumonia Stercoral colitis Urinary tract infection due to extended-spectrum beta lactamase (ESBL) producing Escherichia coli Type 2 diabetes mellitus Hypertension C. difficile diarrhea (01/2024) Gastroesophageal reflux disease History of breast cancer Thyroid cancer Hyperlipidemia Peripheral vascular disease Non-STEMI (non-ST elevated myocardial infarction) Combined systolic and diastolic congestive heart failure Echo 01/2024 demonstrated stable systolic dysfunction with EF of 25-30% but worsening diastolic function with grade 3-4 dysfunction with elevated left atrial pressures, mild right ventricular enlargement with hypokinesis of the right ventricle, mild aortic stenosis with mild aortic regurgitation, mild pulmonary hypertension with RVSP of 41 with [id number] pericardial effusion among other abnormalities Neuropathy Psychiatric disorder Dementia <Day Suarez MD - Last Filed: 10/05/24 23:34> Surgical History Surgical History: Surgical History History of thyroidectomy History of ventral hernia repair With chronic calcified seroma History of above-knee amputation of both lower extremities History of right breast implant Patient reports that it was radiation implant History of lumpectomy of left breast <Day Suarez MD - Last Filed: 10/05/24 23:34> Family History Family History: Family History Mother Family history of type 2 diabetes mellitus, Onset Age: 55 Father Acute myocardial infarction, Onset Age: 58 <Day Suarez MD - Last Filed: 10/05/24 23:34> Social History Social History: Social History Social History: Surrogate medical decision maker: Ailyn Turner, daughter. Code status: Do not resuscitate with selective treatment (paperwork accompanies the patient). Smoking status: Unknown if ever smoked Second hand tobacco smoke exposure: No Alcohol intake: unknown Substance use: unknown Substance use type: does not use Do You Feel Safe in your Home?: Yes Lack of Transportation: No Lack of Food: Never True Current Housing: I Have Housing Concerned About Future Housing: No Difficulty Paying Gas/Electric Bills: No Difficulty Paying for Meds: No Currently Unemployed: No Education: High School Diploma/GED Difficulty w/ Childcare or Family Care: No Spiritual care concerns: No <Day Suarez MD - Last Filed: 10/05/24 23:34> Exam Const: General: comfortable, no acute distress and lethargic <Day Suarez MD - Last Filed: 10/05/24 23:34> HENMT: Head: normocephalic and atraumatic <Day Suarez MD - Last Filed: 10/05/24 23:34> Teeth and gingiva: edentulous <Day Suarez MD - Last Filed: 10/05/24 23:34> Throat: posterior oropharynx normal and tonsils normal <Day Suarez MD - Last Filed: 10/05/24 23:34> Eyes: Conjunctivae: conjunctivae normal <Day Suarez MD - Last Filed: 10/05/24 23:34> Pupils: Pinpoint pupils <Day Suarez MD - Last Filed: 10/05/24 23:34> EOM: EOMs intact bilaterally <Day Suarez MD - Last Filed: 10/05/24 23:34> Resp: Effort & Inspection: normal respiratory effort <Day Suarez MD - Last Filed: 10/05/24 23:34> Auscultation: clear to auscultation bilaterally <Day Suarez MD - Last Filed: 10/05/24 23:34> Cardio: Rate: regular rate <Day Suarez MD - Last Filed: 10/05/24 23:34> Rhythm: regular rhythm <Day Suarez MD - Last Filed: 10/05/24 23:34> GI: GI Palp: Yes Soft to palpation <Day Suarez MD - Last Filed: 10/05/24 23:34> Auscultation: normal bowel sounds <Day Suarez MD - Last Filed: 10/05/24 23:34> Urinary Catheter: Urinary Catheter: patent and draining (rip urine) <Day Suarez MD - Last Filed: 10/05/24 23:34> Extrem: General: no pedal edema <Day Suarez MD - Last Filed: 10/05/24 23:34> Psych: Mental Status: mental status grossly normal <Day Suarez MD - Last Filed: 10/05/24 23:34> Affect: normal affect <Day Suarez MD - Last Filed: 10/05/24 23:34> Course Reevaluation(s) Reevaluation #1: Patient presents with lethargy, found to be in hypotensive shock with UTI, had clear CXR and tolerated 1L IVF however given h/o CHF with low EF, will aim for early pressors; signed out to me pending re-eval/CVC placement, Dr Suarez had already spoken with ICU, hospitalist, and family member (medical decision maker) over the phone who would like everything done (CVC, intubation, etc) other than CPR. Initially attempted R IJ CVC however malposition of CVC on CXR on my independent interpretation; I suspect given her poor vascular status (she is bilaterla AKA) I have low confidence re-insertion would be successful; d/w Dr Hook ICU who recommends going fem. R fem CVC placed under US, pt tolerated this well; she was spontaneously scratching at her cheek occasionally with her R hand. Pt will be admitted to ICU. <Gabriela Parsons MD - Last Filed: 10/05/24 22:23> Consultations Consultation #1: I Spoke with hospitalist and game show host who accept admission to ICU. REcommend starting cefepime and Vancomycin for septic shock. Patient has UTI. <Day Suarez MD - Last Filed: 10/05/24 23:34> Date: 10/05/24 <Day Suarez MD - Last Filed: 10/05/24 23:34> Time: 20:30 <Day Suarez MD - Last Filed: 10/05/24 23:34> Vital Signs Vital signs: Vital Signs Temperature 97.9 F 10/05/24 16:14 Pulse Rate 71 10/05/24 16:14 Respiratory Rate 16 10/05/24 16:14 Blood Pressure 103/38 L 10/05/24 16:14 Pulse Oximetry 100 10/05/24 16:14 Temperature 98.4 F 10/05/24 23:01 Pulse Rate 67 10/05/24 23:02 Respiratory Rate 16 10/05/24 23:01 Blood Pressure 143/113 H 10/05/24 23:02 Pulse Oximetry 100 10/05/24 23:01 <Day Suarez MD - Last Filed: 10/05/24 23:34> Vital Signs Temperature 97.9 F 10/05/24 16:14 Pulse Rate 71 10/05/24 16:14 Respiratory Rate 16 10/05/24 16:14 Blood Pressure 103/38 L 10/05/24 16:14 Pulse Oximetry 100 10/05/24 16:14 Temperature 98.4 F 10/05/24 23:01 Pulse Rate 67 10/05/24 23:02 Respiratory Rate 16 10/05/24 23:01 Blood Pressure 143/113 H 10/05/24 23:02 Pulse Oximetry 100 10/05/24 23:01 <Gabriela Parsons MD - Last Filed: 10/05/24 22:23> Procedures Central Line Placement Right IJ: Central Line Date: 10/05/24 <Gabriela Parsons MD - Last Filed: 10/05/24 22:23> Central Line Time: 21:22 <Gabriela Parsons MD - Last Filed: 10/05/24 22:23> Discussed w/ the patient/family/POA,the placement of a central venous catheter, including its clinical necessity/indication & associated potential risks, benifits and alternatives.: Yes <Gabriela Parsons MD - Last Filed: 10/05/24 22:23> The patient/family/POA understand(s) and acknowledge(s) the need to proceed with central venous catheter insertion as an important element of the patient's clinical management.: Yes <Gabriela Parsons MD - Last Filed: 10/05/24 22:23> Patient Placed on Monitor/Pulse Ox: Yes <Gabriela Parsons MD - Last Filed: 10/05/24 22:23> Max. Sterile Barrier Technique: Caps, large sterile sheet and hand hygiene <Gabriela Parsons MD - Last Filed: 10/05/24 22:23> Central Line Prep: 2% chlorhexidine scrub and sterile drapes applied <Gabriela Parsons MD - Last Filed: 10/05/24 22:23> Technique: US-Guided <Gabriela Parsons MD - Last Filed: 10/05/24 22:23> Local Anesthetic: lidocaine 1% <Gabriela Parsons MD - Last Filed: 10/05/24 22:23> Amount of anesthesia used (mL): 3 <Gabriela Parsons MD - Last Filed: 10/05/24 22:23> Ultrasound Used for Placement: Yes <Gabriela Parsons MD - Last Filed: 10/05/24 22:23> Central Line Lumen Inserted: triple <Gabriela Parsons MD - Last Filed: 10/05/24 22:23> Post Procedure: sutured in place, good blood return, all ports aspirated, flushed, capped and sterile dressing applied <Gabriela Parsons MD - Last Filed: 10/05/24 22:23> Post Procedure X-Ray: no pneumothorax seen and other (CVC went lateral instead of to R heart.) <Gabriela Parsons MD - Last Filed: 10/05/24 22:23> Patient Tolerated Procedure: well and no complications <Gabriela Parsons MD - Last Filed: 10/05/24 22:23> Complications: catheter malposition <Gabriela Parsons MD - Last Filed: 10/05/24 22:23> Additional Comments: CVC pulled out and replaced. <Gabriela Parsons MD - Last Filed: 10/05/24 22:23> Right Femoral: Central Line Date: 10/05/24 <Gabriela Parsons MD - Last Filed: 10/05/24 22:23> Central Line Time: 22:17 <Gabriela Parsons MD - Last Filed: 10/05/24 22:23> Discussed w/ the patient/family/POA,the placement of a central venous catheter, including its clinical necessity/indication & associated potential risks, benifits and alternatives.: Yes <MD Pollo Fernando Last Filed: 10/05/24 22:23> The patient/family/POA understand(s) and acknowledge(s) the need to proceed with central venous catheter insertion as an important element of the patient's clinical management.: Yes <Gabriela Parsons MD - Last Filed: 10/05/24 22:23> Patient Placed on Monitor/Pulse Ox: Yes <MD Pollo Fernando Last Filed: 10/05/24 22:23> Max. Sterile Barrier Technique: Caps, large sterile sheet and hand hygiene <MD Pollo Fernando Last Filed: 10/05/24 22:23> Central Line Prep: 2% chlorhexidine scrub and sterile drapes applied <MD Pollo Fernando Last Filed: 10/05/24 22:23> Technique: US-Guided <Gabriela Parsons MD - Last Filed: 10/05/24 22:23> Local Anesthetic: lidocaine 1% <Gabriela Parsons MD - Last Filed: 10/05/24 22:23> Amount of anesthesia used (mL): 3 <Gabriela Parsons MD - Last Filed: 10/05/24 22:23> Ultrasound Used for Placement: Yes <Gabriela Parsons MD - Last Filed: 10/05/24 22:23> Central Line Lumen Inserted: triple <Gabriela Parsons MD - Last Filed: 10/05/24 22:23> Post Procedure: sutured in place, good blood return, all ports aspirated, flushed, capped and sterile dressing applied <Gabriela Parsons MD - Last Filed: 10/05/24 22:23> Patient Tolerated Procedure: well and no complications <Gabriela Parsons MD - Last Filed: 10/05/24 22:23> Complications: none <Gabriela Parsons MD - Last Filed: 10/05/24 22:23> MDM - Neuro Symptoms/Deficit MDM Narrative Medical decision making narrative: Patient presents for decreased responsiveness. PAtient hypotensive so 500 ml IV fluids ordered. On review of chart, patient has EF 25% so concerned for fluid overload. Patient also found to be on tramadol with pinpoint pupil. She was given narcan 0.4 mg IV which she responded. PAtient is now more responsive and BP normalized initially. labs stable other than UA. Patient started on levophed and nursing contacted daughter. I spoke with her over the phone and she wants everything done except for CPR. Patient to be admitted to ICU . ABx started. <Day Suarez MD - Last Filed: 10/05/24 23:34> Differential Diagnosis Differential diagnosis: Likely delirium, subarachnoid hemorrhage, cerebrovascular accident and other (sepsis) <Day Suarez MD - Last Filed: 10/05/24 23:34> Medical Records Attestation: I reviewed the patient's medical records. <Day Suarez MD - Last Filed: 10/05/24 23:34> Lab Data Attestation: I reviewed the patient's lab results. <Day Suarez MD - Last Filed: 10/05/24 23:34> Result diagrams: 10/05/24 16:32 10/05/24 16:32 <Day Suarez MD - Last Filed: 10/05/24 23:34> Labs: Lab Results 10/05/24 10/05/24 10/05/24 Range/Units 16:32 17:21 19:33 WBC 5.2 (4.5-10.0) K/mm3 RBC 2.83 L (4.2-5.4) M/mm3 Hgb 8.8 L (12.0-15.0) g/dL Hct 27.7 L (37.0-47.0) % MCV 97.9 (80-100) fl MCH 31.1 (26-34) pg MCHC 31.8 L (32-36) g/dl RDW 17.3 H (11.5-14.5) % Plt Count 166 (150-375) k/mm3 MPV 10.3 (7.4-10.4) fl Immature Gran % (Auto) 0.6 H (0-0.5) % Neut % (Auto) 68.5 (45.5-73.1) % Lymph % (Auto) 21.6 (18.3-44.2) % [place] % (Auto) 6.8 (2.6-8.5) % Eos % (Auto) 1.5 (0-4.4) % Baso % (Auto) 1.0 (0.2-1.2) % Lymph # (Auto) 1.12 (0.9-3.2) K/mm3 [place] # (Auto) 0.4 (0.1-0.6) K/mm3 Eos # (Auto) 0.1 (0-0.3) K/mm3 Baso # (Auto) 0.1 (0.0-0.1) K/mm3 Abs Immat Gran (auto) 0.03 (0.00-0.031) K/mm3 Absolute Neuts (auto) 3.6 (1.3-6.7) K/mm3 Absolute Nucleated RBC 0.000 (0.0-0.012) K/mm3 Nucleated RBC % 0.0 (0.0-0.2) % PT 18.1 H (11.1-14.7) Seconds INR 1.5 APTT 31.3 (22.3-36.8) Seconds Methemoglobin 0.3 (0-1.5) %THb Sodium 132 L (137-145) mmol/L Potassium 3.9 (3.4-5.0) mmol/L Chloride 97 L (98-107) mmol/L Carbon Dioxide 31 H (22-30) mmol/L Anion Gap 4 (4-12) mmol/L BUN 38 H D (7-17) mg/dL Creatinine 1.19 H (0.7-1.0) mg/dL Estim Creat Clear Calc Not Reportable Estimated GFR 45 L (59 - ) Glucose 182 H (65-110) mg/dL Lactic Acid 0.9 (0.7-2.0) mmol/L Calcium 8.0 L (8.4-10.2) mg/dL Magnesium 1.6 (1.6-2.3) mg/dL Total Bilirubin 0.6 (0.2-1.3) mg/dL AST 31 (14-36) U/L ALT 17 (6-35) U/L Alkaline Phosphatase 38 (38-126) U/L Ammonia 13 (9-30) umol/L Troponin I 0.012 (0.000-0.034) ng/mL NT-Pro-B Natriuret Pep > 87702 H (19.9-100) pg/mL Total Protein 7.1 (6.3-8.2) g/dL Albumin 3.2 L (3.5-5.1) g/dL Lipase 13 L (23-300) U/L Urine Color Yellow (Yellow) Urine Appearance Turbid H (Clear) Urine pH 5.5 (5.0-9.0) Ur Specific Strang 1.012 (1.001-1.035) Urine Protein 3+ H (Negative) mg/dL Urine Glucose (UA) Negative (Negative) mg/dL Urine Ketones Negative (Negative) mg/dL Ur Blood (Man) 2+ H (Negative) Urine Nitrate Negative (Negative) Urine Bilirubin Negative (Negative) Urine Urobilinogen 1.0 (<2.0) mg/dL Add Ur Microanalysis Reviewed Leukocyte Esterase Rfl 3+ H (Negative) PABLO/UL Urine RBC 51-100 H (0-2) /hpf Urine WBC >100 H (0-3) /hpf Ur Squamous Epith Cells Occasional (Few) /hpf Urine Bacteria 2+ H /hpf Urine Casts 6-10 Urine Opiates Screen Negative (Negative) Urine Methadone Screen Negative (Negative) Ur Barbiturates Screen Negative (Negative) Ur Phencyclidine Scrn Negative (Negative) Ur Amphetamine Screen Negative (Negative) U Benzodiazepines Scrn Negative (Negative) Urine Cocaine Screen Negative (Negative) U Cannabinoids Screen Negative (Negative) <Day Suarez MD - Last Filed: 10/05/24 23:34> Lab Results 10/05/24 10/05/24 10/05/24 Range/Units 16:32 17:21 19:33 WBC 5.2 (4.5-10.0) K/mm3 RBC 2.83 L (4.2-5.4) M/mm3 Hgb 8.8 L (12.0-15.0) g/dL Hct 27.7 L (37.0-47.0) % MCV 97.9 (80-100) fl MCH 31.1 (26-34) pg MCHC 31.8 L (32-36) g/dl RDW 17.3 H (11.5-14.5) % Plt Count 166 (150-375) k/mm3 MPV 10.3 (7.4-10.4) fl Immature Gran % (Auto) 0.6 H (0-0.5) % Neut % (Auto) 68.5 (45.5-73.1) % Lymph % (Auto) 21.6 (18.3-44.2) % [place] % (Auto) 6.8 (2.6-8.5) % Eos % (Auto) 1.5 (0-4.4) % Baso % (Auto) 1.0 (0.2-1.2) % Lymph # (Auto) 1.12 (0.9-3.2) K/mm3 [place] # (Auto) 0.4 (0.1-0.6) K/mm3 Eos # (Auto) 0.1 (0-0.3) K/mm3 Baso # (Auto) 0.1 (0.0-0.1) K/mm3 Abs Immat Gran (auto) 0.03 (0.00-0.031) K/mm3 Absolute Neuts (auto) 3.6 (1.3-6.7) K/mm3 Absolute Nucleated RBC 0.000 (0.0-0.012) K/mm3 Nucleated RBC % 0.0 (0.0-0.2) % PT 18.1 H (11.1-14.7) Seconds INR 1.5 APTT 31.3 (22.3-36.8) Seconds Methemoglobin 0.3 (0-1.5) %THb Sodium 132 L (137-145) mmol/L Potassium 3.9 (3.4-5.0) mmol/L Chloride 97 L (98-107) mmol/L Carbon Dioxide 31 H (22-30) mmol/L Anion Gap 4 (4-12) mmol/L BUN 38 H D (7-17) mg/dL Creatinine 1.19 H (0.7-1.0) mg/dL Estim Creat Clear Calc Not Reportable Estimated GFR 45 L (59 - ) Glucose 182 H (65-110) mg/dL Lactic Acid 0.9 (0.7-2.0) mmol/L Calcium 8.0 L (8.4-10.2) mg/dL Magnesium 1.6 (1.6-2.3) mg/dL Total Bilirubin 0.6 (0.2-1.3) mg/dL AST 31 (14-36) U/L ALT 17 (6-35) U/L Alkaline Phosphatase 38 (38-126) U/L Ammonia 13 (9-30) umol/L Troponin I 0.012 (0.000-0.034) ng/mL NT-Pro-B Natriuret Pep > 07682 H (19.9-100) pg/mL Total Protein 7.1 (6.3-8.2) g/dL Albumin 3.2 L (3.5-5.1) g/dL Lipase 13 L (23-300) U/L Urine Color Yellow (Yellow) Urine Appearance Turbid H (Clear) Urine pH 5.5 (5.0-9.0) Ur Specific Strang 1.012 (1.001-1.035) Urine Protein 3+ H (Negative) mg/dL Urine Glucose (UA) Negative (Negative) mg/dL Urine Ketones Negative (Negative) mg/dL Ur Blood (Man) 2+ H (Negative) Urine Nitrate Negative (Negative) Urine Bilirubin Negative (Negative) Urine Urobilinogen 1.0 (<2.0) mg/dL Add Ur Microanalysis Reviewed Leukocyte Esterase Rfl 3+ H (Negative) PABLO/UL Urine RBC 51-100 H (0-2) /hpf Urine WBC >100 H (0-3) /hpf Ur Squamous Epith Cells Occasional (Few) /hpf Urine Bacteria 2+ H /hpf Urine Casts 6-10 Urine Opiates Screen Negative (Negative) Urine Methadone Screen Negative (Negative) Ur Barbiturates Screen Negative (Negative) Ur Phencyclidine Scrn Negative (Negative) Ur Amphetamine Screen Negative (Negative) U Benzodiazepines Scrn Negative (Negative) Urine Cocaine Screen Negative (Negative) U Cannabinoids Screen Negative (Negative) <Gabriela Parsons MD - Last Filed: 10/05/24 22:23> ABG Data ABG results: 10/05/24 17:21 Puncture Site Right radial ABG pH 7.417 ABG pCO2 46.3 H ABG pO2 63.2 L ABG PO2/FiO2 Ratio 3.01 ABG HCO3 29.2 H ABG O2 Saturation 92.4 L ABG O2 Content 13.5 L ABG Base Excess 4.0 A-a Gradient 31.1 Oxyhemoglobin 88.4 L Carboxyhemoglobin 0.9 Reduced Hemoglobin 10.4 H Total Hemoglobin 10.8 L O2 Delivery Device Room air O2 Liters/Min Not Reportable FiO2 21 <Day Suarez MD - Last Filed: 10/05/24 23:34> 10/05/24 17:21 Puncture Site Right radial ABG pH 7.417 ABG pCO2 46.3 H ABG pO2 63.2 L ABG PO2/FiO2 Ratio 3.01 ABG HCO3 29.2 H ABG O2 Saturation 92.4 L ABG O2 Content 13.5 L ABG Base Excess 4.0 A-a Gradient 31.1 Oxyhemoglobin 88.4 L Carboxyhemoglobin 0.9 Reduced Hemoglobin 10.4 H Total Hemoglobin 10.8 L O2 Delivery Device Room air O2 Liters/Min Not Reportable FiO2 21 <Gabriela Parsons MD - Last Filed: 10/05/24 22:23> Imaging Data Radiologist's impression: ITS Impressions Head CT 10/05/24 16:32 IMPRESSION: No acute intracranial process. Chest X-Ray 10/05/24 17:58 IMPRESSION: No acute cardiopulmonary process. <Day Suarez MD - Last Filed: 10/05/24 23:34> Critical Care Time Critical Care Time Critical Care Time: Yes <Gabriela Parsons MD - Last Filed: 10/05/24 22:23> Total Critical Care Time: 72 <Gabriela Parsons MD - Last Filed: 10/05/24 22:23> Discharge Plan Discharge Clinical Impression: Acute hypotension, Acute UTI, Septic shock <Day Suarez MD - Last Filed: 10/05/24 23:34> Patient Disposition: Still a Patient <Day Suarez MD - Last Filed: 10/05/24 23:34> Condition: Critical <Day Suarez MD - Last Filed: 10/05/24 23:34> Quality [place] Coma Scale Eyes: To Voice <Day Suarez MD - Last Filed: 10/05/24 23:34> Verbal: Oriented and Alert <Day Suarez MD - Last Filed: 10/05/24 23:34> Motor: Follows Commands <Day Suarez MD - Last Filed: 10/05/24 23:34> Irwin Coma Total Score: 14 <Day Suarez MD - Last Filed: 10/05/24 23:34>
--- NOTE | 2024-10-05 18:53 | PC.NURSE ---
reyes catheter replaced, new catheter patent and draining
--- NOTE | 2024-10-05 18:55 | PC.NURSE ---
Report received from SPENCER Almazan. Assumed care of patient at this time.
--- NOTE | 2024-10-05 19:13 | PC.NURSE ---
discussed BNP and blood pressure with Dr. Parsons when Dr Suarez couldn't be reached- Dr Parsons evaluated chest xray results and stated it was okay to hang fluid bolus 500ml
[2024-10-05 19:54] LABS: Add Urine Microscopic? YES; Appearance Urine Turbid (Clear); Glucose Urine UA Negative (Negative); Leukocyte Esterase Ur 3+ LEU/UL (Negative); Need Manual Microscopic Reviewed; Nitrate Urine Negative (Negative); Specific Grav Ur 1.012 (1.001-1.035)
--- NOTE | 2024-10-05 20:00 | PC.NURSE ---
This RN attempted to call patients daughter Ailyn, no answer but a message was left. Will attempt to call again.
[2024-10-05 20:04] LABS: Cannabinoid Screen Urine Negative (Negative)
[2024-10-05] MEDS: NOREPINEPHRINE 8 MG/D5W 250 ML 8 MG/250 ML BAG 9.38 MG IV CONT (20:04)
--- NOTE | 2024-10-05 20:05 | PC.NURSE ---
ERP states start Levo through peripherial line while we wait to speak with patients daughter. Levo started at this time.
--- NOTE | 2024-10-05 20:11 | PC.NURSE ---
Levo drip verified by this RN and SPENCER Garcia.
--- NOTE | 2024-10-05 20:15 | PC.NURSE ---
Attempted to call patients daughter again, no answer but another message was left. concrete engineer notified.
--- NOTE | 2024-10-05 20:30 | PC.NURSE ---
2026 Ailyn, patients daughter calls back. ERP speaking with patients daughter at this time to discuss plan of care and give update.
--- NOTE | 2024-10-05 20:45 | PC.NURSE ---
Patients daughter gives verbal consent to place central line.
--- NOTE | 2024-10-05 21:12 | PC.NURSE ---
ERP in room placing central line.
[2024-10-05] MEDS: CEFEPIME 1 GM in SODIUM CHLORIDE 0.9% IV 50 ML 100 ML IVPB (21:34)
--- NOTE | 2024-10-05 21:44 | PC.NURSE ---
Addendum entered by Berenice Worrell RN 10/05/24 22:23: R IJ not L. Original Note: Central line that was placed in L IG, not in correct position. ERP back in room to attempt femoral line.
[2024-10-05 22:04] LABS: MRSA (PCR) NOT DETECTED (NOT DETECTE)
[2024-10-05] MEDS: SODIUM CHLORIDE 0.9% IV 1,000 ML 125 ML IV CONT (22:08)
[2024-10-05] MEDS: VANCOMYCIN 1,750 MG/NS 500 ML 1,750 MG/500 ML BAG 250 MG IVPB (22:10)
--- NOTE | 2024-10-05 22:22 | PC.NURSE ---
Central line that was placed in R IJ was removed, tip intact.
--- NOTE | 2024-10-05 22:45 | ADMGEN ---
This patient, Iris Pascual, was admitted to Intensive Care Unit-3. Patient/family oriented to hospital policies and general routines including ID bracelet, bed and alarms, visiting hours, pain management, procedures, bathroom and other care routines, personal items, smoking policy, room service/diet, and visiting hours. Information on how to activate the Rapid Response Team has been discussed. Patient/Family are encouraged to report perceived risks to care and to ask questions if they do not understand what they are told or what they should do.
--- NOTE | 2024-10-05 22:56 | WNDPHOTO ---
PHOTO ONLY - See Nursing Notes and/ or assessments for documentation.
--- NOTE | 2024-10-05 23:58 | PM.IMHP ---
H&P: HPI History of Present Illness Date/Time: 10/05/24 23:58 Chief Complaint: Altered mental status Narrative: 69-year-old female with extensive medical history including recurrent C diff colitis, chronic indwelling Kaplan catheter with recurrent UTIs, dementia (baseline A&O x2) residing at nursing facility, essential hypertension, peripheral vascular disease with bilateral AKA, combined systolic-diastolic heart failure, insulin-dependent diabetes mellitus, hypothyroidism, GERD, CKD stage 3, anemia. Presents to [facility] ER on 10/05/2024 as she was noted to be responsive to painful stimuli only. Her last known normal was around noon on the day of admission. Hypotensive in the ER. Hemoglobin 8.8, INR 1.5, ABG with pH 7.417, pCO2 46.3, sodium 132, potassium 3.9, BUN 38, serum creatinine 1.19 which is around her baseline, magnesium 1.6, troponin within normal limits, BNP greater than 30,000 however it is chronically elevated, his urinalysis 3+ leukocyte esterase, 51-100 RBC, greater than 100 WBC, 2+ bacteria, urine drug screen negative, nasal MRSA negative. Head CT did not demonstrate acute intracranial process. Chest x-ray without acute process. In the ER a right IJ triple-lumen catheter was placed, however on subsequent x-ray it did transverse laterally terminating and an axillary vein. Removed and new central line placed and right femoral vein. This was done without any immediate complications. She was given vancomycin and cefepime. 1 L normal saline bolus. Patient admitted to ICU on 10/06/2024. After the your intervention she was noted to be slightly more alert. At 1 point she was A&O x3 for the nurse in the ICU. Review of Systems Review of Systems: All systems reviewed & are unremarkable except as noted in HPI and below (Subjective/HPI) [facility] Past Medical History Medical History Chronic indwelling Kaplan catheter CKD (chronic kidney disease) stage 3, GFR 30-59 ml/min With baseline creatinine between 1.3 and 1.6 Iron deficiency anemia History of ESBL E. coli infection Recurrent Clostridioides difficile infection Anemia Pneumonia Stercoral colitis Urinary tract infection due to extended-spectrum beta lactamase (ESBL) producing Escherichia coli Type 2 diabetes mellitus Hypertension C. difficile diarrhea (01/2024) Gastroesophageal reflux disease History of breast cancer Thyroid cancer Hyperlipidemia Peripheral vascular disease Non-STEMI (non-ST elevated myocardial infarction) Combined systolic and diastolic congestive heart failure Echo 01/2024 demonstrated stable systolic dysfunction with EF of 25-30% but worsening diastolic function with grade 3-4 dysfunction with elevated left atrial pressures, mild right ventricular enlargement with hypokinesis of the right ventricle, mild aortic stenosis with mild aortic regurgitation, mild pulmonary hypertension with RVSP of 41 with [id number] pericardial effusion among other abnormalities Neuropathy Psychiatric disorder Dementia Surgical History Surgical History History of thyroidectomy History of ventral hernia repair With chronic calcified seroma History of above-knee amputation of both lower extremities History of right breast implant Patient reports that it was radiation implant History of lumpectomy of left breast Family History Family History Mother Family history of type 2 diabetes mellitus, Onset Age: 55 Father Acute myocardial infarction, Onset Age: 58 Social History Social History Social History: Surrogate medical decision maker: Ailyn Turner, daughter. Code status: Do not resuscitate with selective treatment (paperwork accompanies the patient). Smoking status: Unknown if ever smoked Second hand tobacco smoke exposure: No Alcohol intake: unknown Substance use: unknown Substance use type: does not use Do You Feel Safe in your Home?: Yes Lack of Transportation: No Lack of Food: Never True Current Housing: I Have Housing Concerned About Future Housing: No Difficulty Paying Gas/Electric Bills: No Difficulty Paying for Meds: No Currently Unemployed: No Education: High School Diploma/GED Difficulty w/ Childcare or Family Care: No Spiritual care concerns: No Meds Home Medications and Allergies Home Medications ?Medication ?Instructions ?Recorded ?Confirmed ?Type atorvastatin 40 mg tablet 40 mg PO HS 12/05/21 10/05/24 History levothyroxine 100 mcg tablet 100 mcg PO DAILY 12/05/21 10/05/24 History gabapentin 300 mg capsule 300 mg PO TID 05/16/22 10/05/24 History potassium chloride 10 mEq 10 meq PO DAILY 05/16/22 10/05/24 History capsule,extended release tramadol 50 mg tablet 50 mg PO Q8H PRN pain 01/30/24 10/05/24 History magnesium citrate (Citroma oral 150 ml PO DAILY PRN Constipation 02/15/24 10/05/24 History solution) magnesium hydroxide 400 mg/5 mL 400 mg PO HS PRN Constipation 02/15/24 10/05/24 History oral suspension (Milk of Magnesia) sodium phosphates 19 gram-7 118 ml RECTAL DAILY PRN 02/15/24 10/05/24 History gram/118 mL enema (Fleet Enema) Constipation ferrous sulfate 325 mg (65 mg 325 mg PO BID #90 tabs 02/29/24 10/05/24 Rx iron) tablet,delayed release acetaminophen 325 mg capsule 650 mg PO Q4H PRN pain or fever 05/04/24 10/05/24 History calcium 600 mg (as 1 cap PO DAILY 05/04/24 10/05/24 History carbonate)-vitamin D3 5 mcg (200 unit) capsule (Calcium 600 + D(3)) cyanocobalamin (vitamin B-12) 1,000 mcg PO DAILY 05/04/24 10/05/24 History 1,000 mcg capsule multivitamin,tx-minerals 1 cap PO DAILY 05/04/24 10/05/24 History (Multi-Vitamin HP/Minerals capsule) bisacodyl 10 mg rectal suppository 10 mg RECTAL DAILY PRN constipation 07/06/24 10/05/24 History insulin aspart U-100 100 unit/mL See Rx Instructions .Route .COMPLEX 07/06/24 10/05/24 History subcutaneous solution (Novolog U-100 Insulin aspart) carvedilol 12.5 mg tablet (Coreg) 12.5 mg PO Q12HR #60 tabs 07/18/24 10/05/24 Rx furosemide 40 mg tablet 40 mg PO DAILY #30 tabs 07/18/24 10/05/24 Rx hydralazine 10 mg tablet 10 mg PO TID #90 tabs 07/18/24 10/05/24 Rx isosorbide dinitrate 10 mg tablet 10 mg PO TID #90 tabs 07/18/24 10/05/24 Rx sodium bicarbonate 650 mg tablet 650 mg PO BID #28 tabs 07/18/24 10/05/24 Rx cetirizine 10 mg tablet 10 mg PO DAILY 10/05/24 10/05/24 History pantoprazole 40 mg tablet,delayed 40 mg PO DAILY 10/05/24 10/05/24 History release (Protonix) silver sulfadiazine 1 % topical 1 applic topical DAILY 10/05/24 10/05/24 History cream (Silvadene) Allergies Allergy/AdvReac Type Severity Reaction Status Date / Time codeine Allergy Unknown Verified 05/21/24 10:56 Vital Signs Vital Signs - 24 hr 10/05/24 16:14 10/05/24 16:14 10/05/24 16:15 Temperature 97.9 F Pulse Rate 71 67 67 Respiratory Rate 16 18 18 Blood Pressure 103/38 L 103/38 L Pulse Oximetry 100 100 100 10/05/24 16:25 10/05/24 16:27 10/05/24 16:30 Temperature Pulse Rate 70 67 66 Respiratory Rate 21 H 17 19 Blood Pressure 97/37 L Pulse Oximetry 94 10/05/24 16:31 10/05/24 16:45 10/05/24 16:46 Temperature Pulse Rate 67 67 67 Respiratory Rate 19 15 18 Blood Pressure 103/38 L 86/41 L Pulse Oximetry 100 100 10/05/24 16:58 10/05/24 17:00 10/05/24 17:01 Temperature Pulse Rate 67 68 67 Respiratory Rate 17 17 14 Blood Pressure 105/42 L 119/44 L Pulse Oximetry 93 95 100 10/05/24 17:15 10/05/24 17:16 10/05/24 17:30 Temperature Pulse Rate 68 69 66 Respiratory Rate 14 22 H 18 Blood Pressure 115/56 L Pulse Oximetry 89 L 90 10/05/24 17:31 10/05/24 17:45 10/05/24 17:46 Temperature Pulse Rate 66 62 62 Respiratory Rate 19 10 L 14 Blood Pressure 108/43 L 113/44 L Pulse Oximetry 10/05/24 18:00 10/05/24 18:01 10/05/24 18:15 Temperature Pulse Rate 63 63 67 Respiratory Rate 17 16 19 Blood Pressure 102/42 L Pulse Oximetry 96 97 95 10/05/24 18:16 10/05/24 18:30 10/05/24 18:31 Temperature Pulse Rate 66 67 88 Respiratory Rate 19 14 26 H Blood Pressure 84/34 L 73/38 L Pulse Oximetry 96 100 10/05/24 18:40 10/05/24 18:45 10/05/24 18:46 Temperature Pulse Rate 69 68 70 Respiratory Rate 21 H 20 17 Blood Pressure 85/48 L 94/52 L Pulse Oximetry 94 95 100 10/05/24 19:00 10/05/24 19:01 10/05/24 19:03 Temperature Pulse Rate 65 65 64 Respiratory Rate 16 16 14 Blood Pressure 74/39 L 85/45 L Pulse Oximetry 87 L 93 92 10/05/24 19:04 10/05/24 19:15 10/05/24 19:16 Temperature Pulse Rate 65 65 64 Respiratory Rate 18 15 16 Blood Pressure 82/44 L Pulse Oximetry 94 93 95 10/05/24 19:30 10/05/24 19:31 10/05/24 19:45 Temperature Pulse Rate 64 63 61 Respiratory Rate 16 16 15 Blood Pressure 85/54 L 87/39 L Pulse Oximetry 96 96 93 10/05/24 19:46 10/05/24 20:00 10/05/24 20:01 Temperature Pulse Rate 60 60 60 Respiratory Rate 13 16 16 Blood Pressure 75/39 L Pulse Oximetry 97 90 93 10/05/24 20:04 10/05/24 20:10 10/05/24 20:10 Temperature Pulse Rate 61 61 61 Respiratory Rate 16 Blood Pressure 75/39 L 82/49 L 82/49 L Pulse Oximetry 96 10/05/24 20:15 10/05/24 20:21 10/05/24 20:22 Temperature Pulse Rate 60 63 63 Respiratory Rate 16 17 16 Blood Pressure 94/54 L Pulse Oximetry 97 98 100 10/05/24 20:23 10/05/24 20:30 10/05/24 20:31 Temperature Pulse Rate 64 66 64 Respiratory Rate 11 L 16 17 Blood Pressure 94/54 L 81/61 L Pulse Oximetry 99 99 100 10/05/24 20:41 10/05/24 20:45 10/05/24 20:51 Temperature Pulse Rate 66 70 68 Respiratory Rate 16 14 17 Blood Pressure 85/70 L 87/64 L Pulse Oximetry 94 98 100 10/05/24 21:00 10/05/24 21:15 10/05/24 21:30 Temperature Pulse Rate 76 72 Respiratory Rate 32 H 28 H 23 H Blood Pressure Pulse Oximetry 100 100 100 10/05/24 21:31 10/05/24 21:40 10/05/24 21:45 Temperature Pulse Rate 70 70 75 Respiratory Rate 22 H 17 24 H Blood Pressure 102/59 L 90/74 L Pulse Oximetry 100 100 100 10/05/24 21:50 10/05/24 22:27 10/05/24 23:01 Temperature 98.4 F Pulse Rate 72 71 69 Respiratory Rate 18 19 16 Blood Pressure 108/91 H 100/56 L 143/113 H Pulse Oximetry 100 100 100 10/05/24 23:02 10/05/24 23:26 Temperature Pulse Rate 67 63 Respiratory Rate Blood Pressure 143/113 H 126/46 L Pulse Oximetry Exam Const: General: comfortable and no acute distress Other: Lethargic but arousable. A&O x2-3 HENMT: Mouth: Yes moist mucous membranes Eyes: Pupils: Equal, round and reactive pupils present Neck: Neck: supple Resp: Effort & Inspection: normal respiratory effort Auscultation: clear to auscultation bilaterally Cardio: Rate: regular rate Rhythm: regular rhythm Heart sounds: no gallops, no murmurs and no rubs GI: Inspection: non-distended GI Palp: Yes Soft to palpation Extrem: Other: Bilateral AKA, no pitting edema in the thighs H&P: Results Labs Labs: Short CBC 10/05/24 Range/Units 16:32 WBC 5.2 (4.5-10.0) K/mm3 Hgb 8.8 L (12.0-15.0) g/dL Hct 27.7 L (37.0-47.0) % Plt Count 166 (150-375) k/mm3 BMP 10/05/24 16:32 Sodium 132 L Potassium 3.9 Chloride 97 L Carbon Dioxide 31 H BUN 38 H D Creatinine 1.19 H Glucose 182 H Calcium 8.0 L Cardiac Enzymes 10/05/24 Range/Units 16:32 Troponin I 0.012 (0.000-0.034) ng/mL Liver Function 10/05/24 Range/Units 16:32 Total Bilirubin 0.6 (0.2-1.3) mg/dL AST 31 (14-36) U/L ALT 17 (6-35) U/L Alkaline Phosphatase 38 (38-126) U/L Albumin 3.2 L (3.5-5.1) g/dL Urine 10/05/24 Range/Units 19:33 Urine Color Yellow (Yellow) Urine Appearance Turbid H (Clear) Urine pH 5.5 (5.0-9.0) Ur Specific [place] 1.012 (1.001-1.035) Urine Protein 3+ H (Negative) mg/dL Urine Glucose (UA) Negative (Negative) mg/dL Assessment and Plan Assessment and plan (1) Septic shock: Code(s): A41.9 - Sepsis, unspecified organism; R65.21 - Severe sepsis with septic shock Status: Acute (2) Catheter-associated urinary tract infection: Qualifiers: Indwelling urinary catheter type: indwelling urethral catheter Encounter type: initial encounter Qualified Code(s): T83.511A - Infection and inflammatory reaction due to indwelling urethral catheter, initial encounter; N39.0 - Urinary tract infection, site not specified Code(s): T83.511A - Infection and inflammatory reaction due to indwelling urethral catheter, initial encounter; N39.0 - Urinary tract infection, site not specified Status: Acute Plan 69-year-old female with extensive medical history including recurrent C diff colitis, chronic indwelling Kaplan catheter with recurrent UTIs, dementia (baseline A&O x2) residing at nursing facility, essential hypertension, peripheral vascular disease with bilateral AKA, combined systolic-diastolic heart failure, insulin-dependent diabetes mellitus, hypothyroidism, GERD, CKD stage 3, anemia. Presents to [facility] ER on 10/05/2024 as she was noted to be responsive to painful stimuli only. Her last known normal was around noon on the day of admission. Hypotensive in the ER. Hemoglobin 8.8, INR 1.5, ABG with pH 7.417, pCO2 46.3, sodium 132, potassium 3.9, BUN 38, serum creatinine 1.19 which is around her baseline, magnesium 1.6, troponin within normal limits, BNP greater than 30,000 however it is chronically elevated, his urinalysis 3+ leukocyte esterase, 51-100 RBC, greater than 100 WBC, 2+ bacteria, urine drug screen negative, nasal MRSA negative. Head CT did not demonstrate acute intracranial process. Chest x-ray without acute process. In the ER a right IJ triple-lumen catheter was placed, however on subsequent x-ray it did transverse laterally terminating and an axillary vein. Removed and new central line placed and right femoral vein. This was done without any immediate complications. She was given vancomycin and cefepime. 1 L normal saline bolus. Patient admitted to ICU on 10/06/2024. After the your intervention she was noted to be slightly more alert. At 1 point she was A&O x3 for the nurse in the ICU. ----- She is currently on 9 mcg per hour of Levophed. Systolic blood pressure in the 140s. She received 1 L normal saline bolus and continued on 125 cc. Will decrease that to 50 cc. Lungs clear, no peripheral edema. She is breathing comfortably. Continue to monitor respiratory status. Cefepime and vancomycin administered in ER. MRSA nares negative. She previously had Klebsiella pneumonia sensitive to cefepime so we will continue that. Cultures were obtained prior to antibiotic administration per ER report. Per ER physician, daughter request modified code with no DNR but okay for intubation. Start heparin DVT prophylaxis. NPO until more alert. speech therapy eval. Accu-Cheks q.6 hours Continue [employer]ET[employer] MANAGER Protonix. Hold M[employer] SPECTROM[employer] MANAGER antihypertensives. Neuro checks q.4 hours. Hospitalist [facility] Advance Care Plan I have confirmed that the patient's Advanced Care Plan is present, code status is documented, or surrogate decision maker is listed in patient medical record.: Yes Medication Reconciliation I have utilized all available resources to obtain, update and review the patients current medications (includes all prescriptions, OTC, herbals, cannabis, and nutritional supplements).: Yes
[2024-10-06] VITALS (24 sets, daily range): BP systolic 87–142; BP diastolic 38–97; PULSE 53–78; RESP 12–20; TEMP 36–36.8; O2SAT 90–100
[2024-10-06] MEDS: CENTRAL LINE FLUSH 10 ML IV PUSH ×3 (05:18→21:06)
[2024-10-06 05:30] LABS: Hematocrit 28.4 % (37.0-47.0); Hemoglobin 8.9 g/dL (12.0-15.0); Immature Granulocyte Percent A 0.5 % (0-0.5); Lymphocytes Absolute Auto 1.28 K/mm3 (0.9-3.2); Mean Corpuscular HGB Conc 31.3 g/dl (32-36); Mean Corpuscular Hemoglobin 31.1 pg (26-34); Mean Corpuscular Volume 99.3 fl (80-100); Nucleated Red Blood Cells Absolute Auto 0.000 K/mm3 (0.0-0.012); Nucleated Red Blood Cells Perc 0.0 % (0.0-0.2); Platelet Count Result 162 k/mm3 (150-375); Red Blood Count 2.86 M/mm3 (4.2-5.4); White Blood Count 5.9 K/mm3 (4.5-10.0)
[2024-10-06 05:51] LABS: Alanine Aminotransferase 18 U/L (6-35); Albumin Level 3.2 g/dL (3.5-5.1); Alkaline Phosphatase 39 U/L (38-126); Anion Gap 6 mmol/L (4-12); Aspartate Amino Transferase 34 U/L (14-36); Bilirubin,Total 0.6 mg/dL (0.2-1.3); Blood Urea Nitrogen 39 mg/dL (7-17); Calcium 7.8 mg/dL (8.4-10.2); Carbon Dioxide 31 mmol/L (22-30); Chloride 97 mmol/L (98-107); Estimated CRCL calculation 36 ml/min; Estimated Glomerular Filt Rate 42; Glucose 153 mg/dL (65-110); Magnesium 1.6 mg/dL (1.6-2.3); Sodium 134 mmol/L (137-145); Total Protein 7.2 g/dL (6.3-8.2)
[2024-10-06 06:00] LABS: Potassium 3.5 mmol/L (3.4-5.0)
[2024-10-06 06:07] LABS: Procalcitonin 0.2 ng/mL
[2024-10-06] MEDS: CEFEPIME 2 GM in SODIUM CHLORIDE 0.9% IV 50 ML 100 ML IVPB ×2 (07:52→20:31)
[2024-10-06] MEDS: PANTOPRAZOLE SODIUM IV 40 MG VIAL IV PUSH (07:52)
[2024-10-06] MEDS: ALBUMIN HUMAN 5% 250 ML IV CONT (07:52)
--- NOTE | 2024-10-06 08:55 | P.CONIN_ITS ---
Assessment and Plan Assessment and plan (1) Acute alteration in mental status: Code(s): R41.82 - Altered mental status, unspecified Status: Acute Assessment and Plan: Patient presented with altered mental status, responding only to pain stimulus when EMS arrived at the detention. Was found to be hypotensive and brought to the ED at [facility] -this morning patient is more awake, alert, oriented x2 which is her baseline -likely related to UTI/septic shock/hypotension (2) Septic shock: Code(s): A41.9 - Sepsis, unspecified organism; R65.21 - Severe sepsis with septic shock Status: Acute Assessment and Plan: 10/05: Patient presented from detention with altered mental status, hypotension refractory to IV fluid bolus, right femoral central line was inserted and patient started on Levophed. -received a total of 1 L IV fluid bolus in the ER -patient was on maintenance IV fluids this was discontinued -will give albumin for intravascular volume expansion -lactic acid is within normal limits, procalcitonin is 0.2 -continue Levophed, maintain MAP > 65 mmHg for adequate end organ perfusion -monitor urine output and renal function -10/05: blood and urine cultures have been obtained -10/05: Started on cefepime and vancomycin, will deescalate was blood cultures and urine cultures are resulted (3) Urinary tract infection: Code(s): N39.0 - Urinary tract infection, site not specified Status: Acute Assessment and Plan: UA was positive for UTI, cultures have been obtained, continue antibiotics (4) Acute kidney injury superimposed on stage 3a chronic kidney disease: Code(s): N17.9 - Acute kidney failure, unspecified; N18.31 - Chronic kidney disease, stage 3a Status: Acute Assessment and Plan: Patient with acute on chronic kidney injury -adequately fluid-resuscitated given her congestive heart failure cardiomyopathy -albumin for intravascular volume expansion -continue to monitor urine output, renal function and electrolytes (5) Combined systolic and diastolic congestive heart failure: Qualifiers: Heart failure chronicity: acute on chronic Qualified Code(s): I50.43 - Acute on chronic combined systolic (congestive) and diastolic (congestive) heart failure Code(s): I50.40 - Unspecified combined systolic (congestive) and diastolic (congestive) heart failure Status: Acute Assessment and Plan: 07/08/2024: Echocardiogram: EF 25-30%, hypokinesis of anteroseptum. LV chamber mildly enlarged, grade 2 diastolic dysfunction. Mild to moderate aortic valve stenosis, moderate pulmonary hypertension with RVSP of 52 mmHg Home medications include carvedilol, Lasix, hydralazine, Imdur and atorvastatin Will hold all antihypertensives as patient is on pressors -maintenance IV fluids have been disc (6) GERD (gastroesophageal reflux disease): Code(s): K21.9 - Gastro-esophageal reflux disease without esophagitis Status: Acute Assessment and Plan: Protonix (7) HTN (hypertension): Qualifiers: Hypertension type: unspecified Qualified Code(s): I10 - Essential (primary) hypertension Code(s): I10 - Essential (primary) hypertension Status: Chronic Assessment and Plan: Hold all antihypertensives as patient on pressors (8) S/P AKA (above knee amputation) bilateral: Code(s): Z89.611 - Acquired absence of right leg above knee; Z89.612 - Acquired absence of left leg above knee Status: Acute Assessment and Plan: Likely related to diabetes and 0 peripheral vascular disease, this is a chronic condition Plan DVT prophylaxis: Heparin subQ Stress ulcer prophylaxis: Protonix Nutrition: Diabetic and heart healthy diet Code Status: No CPR, okay for intubation Critical Care Time Spent: 51 minutes Due to a high probability of clinically significant, life threatening deterioration, the patient required my highest level of preparedness to intervene emergently and I personally spent this critical care time directly and personally managing the patient. This critical care time included obtaining a history; examining the patient; pulse oximetry; ordering and review of studies; arranging urgent treatment with development of a management plan; evaluation of patient's response to treatment; frequent reassessment; and discussions with other providers. It was exclusive of separately billable procedures and treating other patients and teaching time. Please see Assessment and Plan section and the rest of the note for further information on patient assessment and treatment This dictation may have been done utilizing a voice recognition system. Attempts have been made to correct errors. However, there may be uncorrected grammatical, spelling, and recognitions errors present. Supervisor [employer] Consult Note Consult date: 10/06/24 Reason for consult: Altered mental status, septic shock, UTI HPI: Iris Pascual is a 69 year old female with significant past medical history of chronic kidney disease and baseline creatinine between 1.3 and 1.6, iron deficiency anemia, history of ESBL E coli UTI, recurrent C diff infection, pneumonia, type 2 diabetes, hypertension, GERD, history of breast cancer, dementia, peripheral vascular disease, non STEMI, bilateral above knee amputation, chronic indwelling Kaplan catheter cardiomyopathy with combined systolic and diastolic heart failure, EF of 30-35% with grade 2 diastolic dysfunction on echo done on 07/08/2024, presented the ED on 10/05/2024 for evaluation of altered mental status at the detention, EMS was called and upon their arrival she was only responding to pain stimulus. In the ER patient was given a total of 1 L IV fluid bolus, UA was positive for UTI, was found to be hypotensive. UA was positive for UTI, WBC was 5.2, hemoglobin 8.8, platelet 166. Sodium 132, potassium 3.9, CO2 31, BUN 38, creatinine 1.19, lactic acid 0.9, LFTs within normal limits, proBNP was > 26252. Lipase of 13, procalcitonin 0.2. Patient was started on cefepime and vancomycin, right IJ line was inserted for but traversed laterally into axillary vein. Right IJ line was removed and a right femoral central line, patient was started on Levophed and transferred to the ICU for further management Patient seen and examined this morning in the ICU, is awake, alert, oriented x2, patient new way she is and the year was unable to tell me her date of . Follows commands with the upper extremities, denies any chest pain, shortness of breath, abdominal pain, nausea, vomiting. Complains of some pain in his stumps. Patient remains on Levophed Review of Systems 2 Review of Systems: All systems reviewed & are unremarkable except as noted in HPI and below PMFSH Past Medical History Medical History Chronic indwelling Kaplan catheter CKD (chronic kidney disease) stage 3, GFR 30-59 ml/min With baseline creatinine between 1.3 and 1.6 Iron deficiency anemia History of ESBL E. coli infection Recurrent Clostridioides difficile infection Anemia Pneumonia Stercoral colitis Urinary tract infection due to extended-spectrum beta lactamase (ESBL) producing Escherichia coli Type 2 diabetes mellitus Hypertension C. difficile diarrhea (01/2024) Gastroesophageal reflux disease History of breast cancer Thyroid cancer Hyperlipidemia Peripheral vascular disease Non-STEMI (non-ST elevated myocardial infarction) Combined systolic and diastolic congestive heart failure Echo 01/2024 demonstrated stable systolic dysfunction with EF of 25-30% but worsening diastolic function with grade 3-4 dysfunction with elevated left atrial pressures, mild right ventricular enlargement with hypokinesis of the right ventricle, mild aortic stenosis with mild aortic regurgitation, mild pulmonary hypertension with RVSP of 41 with [id number] pericardial effusion among other abnormalities Neuropathy Psychiatric disorder Dementia Surgical History Surgical History History of thyroidectomy History of ventral hernia repair With chronic calcified seroma History of above-knee amputation of both lower extremities History of right breast implant Patient reports that it was radiation implant History of lumpectomy of left breast Family History Family History Mother Family history of type 2 diabetes mellitus, Onset Age: 55 Father Acute myocardial infarction, Onset Age: 58 Social History Social History Social History: Surrogate medical decision maker: Ailyn Turner, daughter. Code status: Do not resuscitate with selective treatment (paperwork accompanies the patient). Smoking status: Unknown if ever smoked Second hand tobacco smoke exposure: No Alcohol intake: unknown Substance use: unknown Substance use type: does not use Do You Feel Safe in your Home?: Yes Lack of Transportation: No Lack of Food: Never True Current Housing: I Have Housing Concerned About Future Housing: No Difficulty Paying Gas/Electric Bills: No Difficulty Paying for Meds: No Currently Unemployed: No Education: Decline to Answer Difficulty w/ Childcare or Family Care: No Spiritual care concerns: No Meds Home Medications and Allergies Home Medications ?Medication ?Instructions ?Recorded ?Confirmed ?Type atorvastatin 40 mg tablet 40 mg PO HS 12/05/21 10/05/24 History levothyroxine 100 mcg tablet 100 mcg PO DAILY 12/05/21 10/05/24 History gabapentin 300 mg capsule 300 mg PO TID 05/16/22 10/05/24 History potassium chloride 10 mEq 10 meq PO DAILY 05/16/22 10/05/24 History capsule,extended release tramadol 50 mg tablet 50 mg PO Q8H PRN pain 01/30/24 10/05/24 History magnesium citrate (Citroma oral 150 ml PO DAILY PRN Constipation 02/15/24 10/05/24 History solution) magnesium hydroxide 400 mg/5 mL 400 mg PO HS PRN Constipation 02/15/24 10/05/24 History oral suspension (Milk of Magnesia) sodium phosphates 19 gram-7 118 ml RECTAL DAILY PRN 02/15/24 10/05/24 History gram/118 mL enema (Fleet Enema) Constipation ferrous sulfate 325 mg (65 mg 325 mg PO BID #90 tabs 02/29/24 10/05/24 Rx iron) tablet,delayed release acetaminophen 325 mg capsule 650 mg PO Q4H PRN pain or fever 05/04/24 10/05/24 History calcium 600 mg (as 1 cap PO DAILY 05/04/24 10/05/24 History carbonate)-vitamin D3 5 mcg (200 unit) capsule (Calcium 600 + D(3)) cyanocobalamin (vitamin B-12) 1,000 mcg PO DAILY 05/04/24 10/05/24 History 1,000 mcg capsule multivitamin,tx-minerals 1 cap PO DAILY 05/04/24 10/05/24 History (Multi-Vitamin HP/Minerals capsule) bisacodyl 10 mg rectal suppository 10 mg RECTAL DAILY PRN constipation 07/06/24 10/05/24 History insulin aspart U-100 100 unit/mL See Rx Instructions .Route .COMPLEX 07/06/24 10/05/24 History subcutaneous solution (Novolog U-100 Insulin aspart) carvedilol 12.5 mg tablet (Coreg) 12.5 mg PO Q12HR #60 tabs 07/18/24 10/05/24 Rx furosemide 40 mg tablet 40 mg PO DAILY #30 tabs 07/18/24 10/05/24 Rx hydralazine 10 mg tablet 10 mg PO TID #90 tabs 07/18/24 10/05/24 Rx isosorbide dinitrate 10 mg tablet 10 mg PO TID #90 tabs 07/18/24 10/05/24 Rx sodium bicarbonate 650 mg tablet 650 mg PO BID #28 tabs 07/18/24 10/05/24 Rx cetirizine 10 mg tablet 10 mg PO DAILY 10/05/24 10/05/24 History pantoprazole 40 mg tablet,delayed 40 mg PO DAILY 10/05/24 10/05/24 History release (Protonix) silver sulfadiazine 1 % topical 1 applic topical DAILY 10/05/24 10/05/24 History cream (Silvadene) Allergies Allergy/AdvReac Type Severity Reaction Status Date / Time codeine Allergy Unknown Verified 05/21/24 10:56 Vital Signs Vital Signs - 24 hr 10/05/24 16:14 10/05/24 16:14 10/05/24 16:15 Temperature 97.9 F Pulse Rate 71 67 67 Respiratory Rate 16 18 18 Blood Pressure 103/38 L 103/38 L Pulse Oximetry 100 100 100 Oxygen Delivery Oxygen Flow Rate 10/05/24 16:25 10/05/24 16:27 10/05/24 16:30 Temperature Pulse Rate 70 67 66 Respiratory Rate 21 H 17 19 Blood Pressure 97/37 L Pulse Oximetry 94 Oxygen Delivery Oxygen Flow Rate 10/05/24 16:31 10/05/24 16:45 10/05/24 16:46 Temperature Pulse Rate 67 67 67 Respiratory Rate 19 15 18 Blood Pressure 103/38 L 86/41 L Pulse Oximetry 100 100 Oxygen Delivery Oxygen Flow Rate 10/05/24 16:58 10/05/24 17:00 10/05/24 17:01 Temperature Pulse Rate 67 68 67 Respiratory Rate 17 17 14 Blood Pressure 105/42 L 119/44 L Pulse Oximetry 93 95 100 Oxygen Delivery Oxygen Flow Rate 10/05/24 17:15 10/05/24 17:16 10/05/24 17:30 Temperature Pulse Rate 68 69 66 Respiratory Rate 14 22 H 18 Blood Pressure 115/56 L Pulse Oximetry 89 L 90 Oxygen Delivery Oxygen Flow Rate 10/05/24 17:31 10/05/24 17:45 10/05/24 17:46 Temperature Pulse Rate 66 62 62 Respiratory Rate 19 10 L 14 Blood Pressure 108/43 L 113/44 L Pulse Oximetry Oxygen Delivery Oxygen Flow Rate 10/05/24 18:00 10/05/24 18:01 10/05/24 18:15 Temperature Pulse Rate 63 63 67 Respiratory Rate 17 16 19 Blood Pressure 102/42 L Pulse Oximetry 96 97 95 Oxygen Delivery Oxygen Flow Rate 10/05/24 18:16 10/05/24 18:30 10/05/24 18:31 Temperature Pulse Rate 66 67 88 Respiratory Rate 19 14 26 H Blood Pressure 84/34 L 73/38 L Pulse Oximetry 96 100 Oxygen Delivery Oxygen Flow Rate 10/05/24 18:40 10/05/24 18:45 10/05/24 18:46 Temperature Pulse Rate 69 68 70 Respiratory Rate 21 H 20 17 Blood Pressure 85/48 L 94/52 L Pulse Oximetry 94 95 100 Oxygen Delivery Oxygen Flow Rate 10/05/24 19:00 10/05/24 19:01 10/05/24 19:03 Temperature Pulse Rate 65 65 64 Respiratory Rate 16 16 14 Blood Pressure 74/39 L 85/45 L Pulse Oximetry 87 L 93 92 Oxygen Delivery Oxygen Flow Rate 10/05/24 19:04 10/05/24 19:15 10/05/24 19:16 Temperature Pulse Rate 65 65 64 Respiratory Rate 18 15 16 Blood Pressure 82/44 L Pulse Oximetry 94 93 95 Oxygen Delivery Oxygen Flow Rate 10/05/24 19:30 10/05/24 19:31 10/05/24 19:45 Temperature Pulse Rate 64 63 61 Respiratory Rate 16 16 15 Blood Pressure 85/54 L 87/39 L Pulse Oximetry 96 96 93 Oxygen Delivery Oxygen Flow Rate 10/05/24 19:46 10/05/24 20:00 10/05/24 20:01 Temperature Pulse Rate 60 60 60 Respiratory Rate 13 16 16 Blood Pressure 75/39 L Pulse Oximetry 97 90 93 Oxygen Delivery Oxygen Flow Rate 10/05/24 20:04 10/05/24 20:10 10/05/24 20:10 Temperature Pulse Rate 61 61 61 Respiratory Rate 16 Blood Pressure 75/39 L 82/49 L 82/49 L Pulse Oximetry 96 Oxygen Delivery Oxygen Flow Rate 10/05/24 20:15 10/05/24 20:21 10/05/24 20:22 Temperature Pulse Rate 60 63 63 Respiratory Rate 16 17 16 Blood Pressure 94/54 L Pulse Oximetry 97 98 100 Oxygen Delivery Oxygen Flow Rate 10/05/24 20:23 10/05/24 20:30 10/05/24 20:31 Temperature Pulse Rate 64 66 64 Respiratory Rate 11 L 16 17 Blood Pressure 94/54 L 81/61 L Pulse Oximetry 99 99 100 Oxygen Delivery Oxygen Flow Rate 10/05/24 20:41 10/05/24 20:45 10/05/24 20:51 Temperature Pulse Rate 66 70 68 Respiratory Rate 16 14 17 Blood Pressure 85/70 L 87/64 L Pulse Oximetry 94 98 100 Oxygen Delivery Oxygen Flow Rate 10/05/24 21:00 10/05/24 21:15 10/05/24 21:30 Temperature Pulse Rate 76 72 Respiratory Rate 32 H 28 H 23 H Blood Pressure Pulse Oximetry 100 100 100 Oxygen Delivery Oxygen Flow Rate 10/05/24 21:31 10/05/24 21:40 10/05/24 21:45 Temperature Pulse Rate 70 70 75 Respiratory Rate 22 H 17 24 H Blood Pressure 102/59 L 90/74 L Pulse Oximetry 100 100 100 Oxygen Delivery Oxygen Flow Rate 10/05/24 21:50 10/05/24 22:27 10/05/24 22:45 Temperature Pulse Rate 72 71 70 Respiratory Rate 18 19 Blood Pressure 108/91 H 100/56 L Pulse Oximetry 100 100 Oxygen Delivery Oxygen Flow Rate 10/05/24 23:01 10/05/24 23:02 10/05/24 23:26 Temperature 98.4 F Pulse Rate 69 67 63 Respiratory Rate 16 Blood Pressure 143/113 H 143/113 H 126/46 L Pulse Oximetry 100 Oxygen Delivery Oxygen Flow Rate 10/06/24 00:00 10/06/24 00:00 10/06/24 00:00 Temperature 96.8 F L Pulse Rate 64 64 Respiratory Rate 14 Blood Pressure 106/51 L 106/51 L Pulse Oximetry 100 100 Oxygen Delivery Nasal Cannula Oxygen Flow Rate 2 10/06/24 00:00 10/06/24 01:18 10/06/24 01:33 Temperature Pulse Rate 64 62 60 Respiratory Rate Blood Pressure 114/66 108/65 Pulse Oximetry Oxygen Delivery Oxygen Flow Rate 10/06/24 01:47 10/06/24 02:00 10/06/24 02:00 Temperature Pulse Rate 59 L 58 L 58 L Respiratory Rate 15 Blood Pressure 102/58 L 101/39 L 101/39 L Pulse Oximetry 99 Oxygen Delivery Oxygen Flow Rate 10/06/24 02:00 10/06/24 02:47 10/06/24 03:16 Temperature Pulse Rate 58 L 58 L 55 L Respiratory Rate Blood Pressure 107/61 101/44 L Pulse Oximetry Oxygen Delivery Oxygen Flow Rate 10/06/24 04:00 10/06/24 04:00 10/06/24 04:00 Temperature 97.6 F Pulse Rate 54 L Respiratory Rate 16 Blood Pressure 91/40 L Pulse Oximetry 100 100 Oxygen Delivery Nasal Cannula Oxygen Flow Rate 1 10/06/24 04:00 10/06/24 04:00 10/06/24 05:22 Temperature Pulse Rate 54 L 54 L 62 Respiratory Rate Blood Pressure 91/40 L 99/73 L Pulse Oximetry Oxygen Delivery Oxygen Flow Rate 10/06/24 05:30 10/06/24 06:00 10/06/24 06:00 Temperature Pulse Rate 57 L 53 L 53 L Respiratory Rate 15 Blood Pressure 100/40 L 89/42 L 89/42 L Pulse Oximetry 100 Oxygen Delivery Oxygen Flow Rate 10/06/24 06:00 10/06/24 07:45 Temperature Pulse Rate 53 L 54 L Respiratory Rate Blood Pressure 99/38 L Pulse Oximetry Oxygen Delivery Oxygen Flow Rate Exam 2 Narrative: General: Pleasant female, in no acute distress HEENT:? Pupils equal and reactive, sclera is clear, dry oral mucosa Neck:? Supple Respiratory:? Clear to auscultation bilaterally, decreased air entry at bases. There is an induration on the right upper breast which the patient states she has had breast cancer for many years with history of right breast implant Cardiac:? S1-S2 normal, regular rate and rhythm Abdomen:? Soft, abdominal wall hernia, obese, nondistended, nontender Extremities:? Bilateral above-knee amputation, stumps appear normal, no edema, no swelling, no tenderness, no wounds Neuro:? Patient is awake, alert, oriented x2, was able to tell me that she is at [facility], the year. Was unable to tell me her date of . She follows commands with her upper extremities, answers to questions appropriately Skin:? No skin lesions noted Psych:? Normal mentation and affect Results Labs 10/06/24 05:21 10/06/24 05:21 Labs: Short CBC 10/05/24 10/06/24 Range/Units 16:32 05:21 WBC 5.2 5.9 (4.5-10.0) K/mm3 Hgb 8.8 L 8.9 L (12.0-15.0) g/dL Hct 27.7 L 28.4 L (37.0-47.0) % Plt Count 166 162 (150-375) k/mm3 BMP 10/05/24 10/06/24 16:32 05:21 Sodium 132 L 134 L Potassium 3.9 3.5 Chloride 97 L 97 L Carbon Dioxide 31 H 31 H BUN 38 H D 39 H Creatinine 1.19 H 1.26 H Glucose 182 H 153 H Calcium 8.0 L 7.8 L Cardiac Enzymes 10/05/24 Range/Units 16:32 Troponin I 0.012 (0.000-0.034) ng/mL Liver Function 10/05/24 10/06/24 Range/Units 16:32 05:21 Total Bilirubin 0.6 0.6 (0.2-1.3) mg/dL AST 31 34 (14-36) U/L ALT 17 18 (6-35) U/L Alkaline Phosphatase 38 39 (38-126) U/L Albumin 3.2 L 3.2 L (3.5-5.1) g/dL Urine 10/05/24 Range/Units 19:33 Urine Color Yellow (Yellow) Urine Appearance Turbid H (Clear) Urine pH 5.5 (5.0-9.0) Ur Specific [place] 1.012 (1.001-1.035) Urine Protein 3+ H (Negative) mg/dL Urine Glucose (UA) Negative (Negative) mg/dL Quality VTE Prophylaxis VTE prophylaxis: pharmacologic ordered Hospitalist MIPS Advance Care Plan I have confirmed that the patient's Advanced Care Plan is present, code status is documented, or surrogate decision maker is listed in patient medical record.: Yes Medication Reconciliation I have utilized all available resources to obtain, update and review the patients current medications (includes all prescriptions, OTC, herbals, cannabis, and nutritional supplements).: Yes
[2024-10-06] MEDS: ALBUMIN HUMAN 25% 25 GM/100 ML 100 ML IVPB ×3 (12:18→23:34)
--- NOTE | 2024-10-06 13:28 | PM.IMPN ---
Progress Note: A&P Assessment and Plan (1) Acute alteration in mental status: Code(s): R41.82 - Altered mental status, unspecified Status: Acute Assessment and Plan: Patient presented with altered mental status, responding only to pain stimulus when EMS arrived [facility] the [facility]. resolving, likely from UTI Patient alert and oriented x2 which is her baseline (2) Septic shock: Code(s): A41.9 - Sepsis, unspecified organism; R65.21 - Severe sepsis with septic shock Status: Acute Assessment and Plan: from UTI Continue Levophed and IVF per occupational therapist per diem COntnue Vanc adn Cefepime F/u cultures (3) Urinary tract infection: Code(s): N39.0 - Urinary tract infection, site not specified Status: Acute Assessment and Plan: UA was positive for UTI, cultures have been obtained, continue antibiotics (4) Acute kidney injury superimposed on stage 3a chronic kidney disease: Code(s): N17.9 - Acute kidney failure, unspecified; N18.31 - Chronic kidney disease, stage 3a Status: Acute Assessment and Plan: Patient with acute on chronic kidney injury -adequately fluid-resuscitated given her congestive heart failure cardiomyopathy contineu ALbumin Cr 1.26 which appeasts to be baseline (5) Combined systolic and diastolic congestive heart failure: Qualifiers: Heart failure chronicity: acute on chronic Qualified Code(s): I50.43 - Acute on chronic combined systolic (congestive) and diastolic (congestive) heart failure Code(s): I50.40 - Unspecified combined systolic (congestive) and diastolic (congestive) heart failure Status: Acute Assessment and Plan: 07/08/2024: Echocardiogram: EF 25-30%, hypokinesis of anteroseptum. LV chamber mildly enlarged, grade 2 diastolic dysfunction. Mild to moderate aortic valve stenosis, moderate pulmonary hypertension with RVSP of 52 mmHg titrate home meds wt clinical course (6) GERD (gastroesophageal reflux disease): Code(s): K21.9 - Gastro-esophageal reflux disease without esophagitis Status: Acute Assessment and Plan: Protonix (7) HTN (hypertension): Qualifiers: Hypertension type: unspecified Qualified Code(s): I10 - Essential (primary) hypertension Code(s): I10 - Essential (primary) hypertension Status: Chronic Assessment and Plan: Hold all antihypertensives as patient on pressors (8) S/P AKA (above knee amputation) bilateral: Code(s): Z89.611 - Acquired absence of right leg above knee; Z89.612 - Acquired absence of left leg above knee Status: Acute Assessment and Plan: Likely related to diabetes and 0 peripheral vascular disease, this is a chronic condition Plan DVT prophylaxis: Heparin subQ Stress ulcer prophylaxis: Protonix Nutrition: Diabetic and heart healthy diet Code Status: No CPR, okay for intubation Subjective Date/time seen: 10/06/24 13:28 Interval history: Comfortable at bedside Review of Systems Review of Systems: All systems reviewed & are unremarkable except as noted in HPI and below Exam Narrative: General: Pleasant female, in no acute distress HEENT:? Pupils equal and reactive, sclera is clear, dry oral mucosa Neck:? Supple Respiratory:? Clear to auscultation bilaterally, decreased air entry at bases. There is an induration on the right upper breast which the patient states she has had breast cancer for many years with history of right breast implant Cardiac:? S1-S2 normal, regular rate and rhythm Abdomen:? Soft, abdominal wall hernia, obese, nondistended, nontender Extremities:? Bilateral above-knee amputation, stumps appear normal, no edema, no swelling, no tenderness, no wounds Neuro:? Patient is awake, alert, oriented x2, was able to tell me that she is at [facility], the year. Was unable to tell me her date of . She follows commands with her upper extremities, answers to questions appropriately Skin:? No skin lesions noted Psych:? Normal mentation and affect Const: General: comfortable and no acute distress Other: Lethargic but arousable. A&O x2-3 HENMT: Mouth: Yes moist mucous membranes Eyes: Pupils: Equal, round and reactive pupils present Neck: Neck: supple Resp: Effort & Inspection: normal respiratory effort Auscultation: clear to auscultation bilaterally Cardio: Rate: regular rate Rhythm: regular rhythm Heart sounds: no gallops, no murmurs and no rubs GI: Inspection: non-distended Neuro: Cranial nerves: Yes Equal, round and reactive pupils present Extrem: Other: Bilateral AKA, no pitting edema in the thighs Objective Data Vital Signs Vital Signs: Vital Signs - 24 hr 10/05/24 16:14 10/05/24 16:14 10/05/24 16:15 Temperature 97.9 F Pulse Rate 71 67 67 Respiratory Rate 16 18 18 Blood Pressure 103/38 L 103/38 L Pulse Oximetry 100 100 100 Oxygen Delivery Oxygen Flow Rate 10/05/24 16:25 10/05/24 16:27 10/05/24 16:30 Temperature Pulse Rate 70 67 66 Respiratory Rate 21 H 17 19 Blood Pressure 97/37 L Pulse Oximetry 94 Oxygen Delivery Oxygen Flow Rate 10/05/24 16:31 10/05/24 16:45 10/05/24 16:46 Temperature Pulse Rate 67 67 67 Respiratory Rate 19 15 18 Blood Pressure 103/38 L 86/41 L Pulse Oximetry 100 100 Oxygen Delivery Oxygen Flow Rate 10/05/24 16:58 10/05/24 17:00 10/05/24 17:01 Temperature Pulse Rate 67 68 67 Respiratory Rate 17 17 14 Blood Pressure 105/42 L 119/44 L Pulse Oximetry 93 95 100 Oxygen Delivery Oxygen Flow Rate 10/05/24 17:15 10/05/24 17:16 10/05/24 17:30 Temperature Pulse Rate 68 69 66 Respiratory Rate 14 22 H 18 Blood Pressure 115/56 L Pulse Oximetry 89 L 90 Oxygen Delivery Oxygen Flow Rate 10/05/24 17:31 10/05/24 17:45 10/05/24 17:46 Temperature Pulse Rate 66 62 62 Respiratory Rate 19 10 L 14 Blood Pressure 108/43 L 113/44 L Pulse Oximetry Oxygen Delivery Oxygen Flow Rate 10/05/24 18:00 10/05/24 18:01 10/05/24 18:15 Temperature Pulse Rate 63 63 67 Respiratory Rate 17 16 19 Blood Pressure 102/42 L Pulse Oximetry 96 97 95 Oxygen Delivery Oxygen Flow Rate 10/05/24 18:16 10/05/24 18:30 10/05/24 18:31 Temperature Pulse Rate 66 67 88 Respiratory Rate 19 14 26 H Blood Pressure 84/34 L 73/38 L Pulse Oximetry 96 100 Oxygen Delivery Oxygen Flow Rate 10/05/24 18:40 10/05/24 18:45 10/05/24 18:46 Temperature Pulse Rate 69 68 70 Respiratory Rate 21 H 20 17 Blood Pressure 85/48 L 94/52 L Pulse Oximetry 94 95 100 Oxygen Delivery Oxygen Flow Rate 10/05/24 19:00 10/05/24 19:01 10/05/24 19:03 Temperature Pulse Rate 65 65 64 Respiratory Rate 16 16 14 Blood Pressure 74/39 L 85/45 L Pulse Oximetry 87 L 93 92 Oxygen Delivery Oxygen Flow Rate 10/05/24 19:04 10/05/24 19:15 10/05/24 19:16 Temperature Pulse Rate 65 65 64 Respiratory Rate 18 15 16 Blood Pressure 82/44 L Pulse Oximetry 94 93 95 Oxygen Delivery Oxygen Flow Rate 10/05/24 19:30 10/05/24 19:31 10/05/24 19:45 Temperature Pulse Rate 64 63 61 Respiratory Rate 16 16 15 Blood Pressure 85/54 L 87/39 L Pulse Oximetry 96 96 93 Oxygen Delivery Oxygen Flow Rate 10/05/24 19:46 10/05/24 20:00 10/05/24 20:01 Temperature Pulse Rate 60 60 60 Respiratory Rate 13 16 16 Blood Pressure 75/39 L Pulse Oximetry 97 90 93 Oxygen Delivery Oxygen Flow Rate 10/05/24 20:04 10/05/24 20:10 10/05/24 20:10 Temperature Pulse Rate 61 61 61 Respiratory Rate 16 Blood Pressure 75/39 L 82/49 L 82/49 L Pulse Oximetry 96 Oxygen Delivery Oxygen Flow Rate 10/05/24 20:15 10/05/24 20:21 10/05/24 20:22 Temperature Pulse Rate 60 63 63 Respiratory Rate 16 17 16 Blood Pressure 94/54 L Pulse Oximetry 97 98 100 Oxygen Delivery Oxygen Flow Rate 10/05/24 20:23 10/05/24 20:30 10/05/24 20:31 Temperature Pulse Rate 64 66 64 Respiratory Rate 11 L 16 17 Blood Pressure 94/54 L 81/61 L Pulse Oximetry 99 99 100 Oxygen Delivery Oxygen Flow Rate 10/05/24 20:41 10/05/24 20:45 10/05/24 20:51 Temperature Pulse Rate 66 70 68 Respiratory Rate 16 14 17 Blood Pressure 85/70 L 87/64 L Pulse Oximetry 94 98 100 Oxygen Delivery Oxygen Flow Rate 10/05/24 21:00 10/05/24 21:15 10/05/24 21:30 Temperature Pulse Rate 76 72 Respiratory Rate 32 H 28 H 23 H Blood Pressure Pulse Oximetry 100 100 100 Oxygen Delivery Oxygen Flow Rate 10/05/24 21:31 10/05/24 21:40 10/05/24 21:45 Temperature Pulse Rate 70 70 75 Respiratory Rate 22 H 17 24 H Blood Pressure 102/59 L 90/74 L Pulse Oximetry 100 100 100 Oxygen Delivery Oxygen Flow Rate 10/05/24 21:50 10/05/24 22:27 10/05/24 22:45 Temperature Pulse Rate 72 71 70 Respiratory Rate 18 19 Blood Pressure 108/91 H 100/56 L Pulse Oximetry 100 100 Oxygen Delivery Oxygen Flow Rate 10/05/24 23:01 10/05/24 23:02 10/05/24 23:26 Temperature 98.4 F Pulse Rate 69 67 63 Respiratory Rate 16 Blood Pressure 143/113 H 143/113 H 126/46 L Pulse Oximetry 100 Oxygen Delivery Oxygen Flow Rate 10/06/24 00:00 10/06/24 00:00 10/06/24 00:00 Temperature 96.8 F L Pulse Rate 64 64 Respiratory Rate 14 Blood Pressure 106/51 L 106/51 L Pulse Oximetry 100 100 Oxygen Delivery Nasal Cannula Oxygen Flow Rate 2 10/06/24 00:00 10/06/24 01:18 10/06/24 01:33 Temperature Pulse Rate 64 62 60 Respiratory Rate Blood Pressure 114/66 108/65 Pulse Oximetry Oxygen Delivery Oxygen Flow Rate 10/06/24 01:47 10/06/24 02:00 10/06/24 02:00 Temperature Pulse Rate 59 L 58 L 58 L Respiratory Rate 15 Blood Pressure 102/58 L 101/39 L 101/39 L Pulse Oximetry 99 Oxygen Delivery Oxygen Flow Rate 10/06/24 02:00 10/06/24 02:47 10/06/24 03:16 Temperature Pulse Rate 58 L 58 L 55 L Respiratory Rate Blood Pressure 107/61 101/44 L Pulse Oximetry Oxygen Delivery Oxygen Flow Rate 10/06/24 04:00 10/06/24 04:00 10/06/24 04:00 Temperature 97.6 F Pulse Rate 54 L Respiratory Rate 16 Blood Pressure 91/40 L Pulse Oximetry 100 100 Oxygen Delivery Nasal Cannula Oxygen Flow Rate 1 10/06/24 04:00 10/06/24 04:00 10/06/24 05:22 Temperature Pulse Rate 54 L 54 L 62 Respiratory Rate Blood Pressure 91/40 L 99/73 L Pulse Oximetry Oxygen Delivery Oxygen Flow Rate 10/06/24 05:30 10/06/24 06:00 10/06/24 06:00 Temperature Pulse Rate 57 L 53 L 53 L Respiratory Rate 15 Blood Pressure 100/40 L 89/42 L 89/42 L Pulse Oximetry 100 Oxygen Delivery Oxygen Flow Rate 10/06/24 06:00 10/06/24 07:45 10/06/24 08:00 Temperature Pulse Rate 53 L 54 L 55 L Respiratory Rate Blood Pressure 99/38 L 87/42 L Pulse Oximetry Oxygen Delivery Oxygen Flow Rate 10/06/24 08:00 10/06/24 08:00 10/06/24 09:00 Temperature 97.3 F L Pulse Rate 55 L 60 68 Respiratory Rate 15 Blood Pressure 87/42 L 96/80 L Pulse Oximetry 100 Oxygen Delivery Oxygen Flow Rate 10/06/24 10:00 10/06/24 10:00 10/06/24 10:00 Temperature Pulse Rate 62 62 62 Respiratory Rate 16 Blood Pressure 119/71 119/71 Pulse Oximetry 100 Oxygen Delivery Oxygen Flow Rate 10/06/24 11:00 10/06/24 12:00 10/06/24 12:00 Temperature 97.5 F L Pulse Rate 62 64 64 Respiratory Rate 18 Blood Pressure 126/79 132/86 132/86 Pulse Oximetry 100 Oxygen Delivery Oxygen Flow Rate 10/06/24 12:00 10/06/24 12:26 10/06/24 13:00 Temperature Pulse Rate 63 72 78 Respiratory Rate Blood Pressure 142/80 H 120/97 H Pulse Oximetry Oxygen Delivery Oxygen Flow Rate Intake/Output Intake/Output: Intake & Output 10/03/24 10/04/24 10/05/24 10/06/24 23:59 23:59 23:59 23:59 Intake Total 1209.7 882.1 Output Total 275 Balance 1209.7 607.1 Meds/Results Medications: Active Medications Generic Name Dose Route Start Last Admin Trade Name Freq PRN Reason Stop Dose Admin Atorvastatin Calcium 40 mg 10/06/24 21:00 Atorvastatin 40 Mg Tablet PO HS KASIE Dextrose 12.5 gm 10/06/24 00:17 Dextrose 50% 25 Gm/50 Ml Syringe IV PUSH PRN PRN Hypoglycemia Protocol Ferrous Sulfate 325 mg 10/06/24 17:00 Ferrous Sulfate [address] PO BID KASIE Glucose 15 gm 10/06/24 00:17 Glucose Oral Gel 15 Gm Of Glucse In 37.5 Gm Tube PO PRN PRN Hypoglycemia Protocol Heparin Sodium (Porcine) 5,000 units 10/06/24 06:00 10/06/24 05:25 Heparin Sodium 5,000 Units/Ml Vial SUB-Q 5,000 units Q8HR KASIE Administration Norepinephrine Bitartrate 8 mg in 250 mls @ 0 mls/hr 10/05/24 19:50 10/06/24 13:00 Levophed 8 Mg/D5w 250 Ml IV CONT 0 mcg/min .Q0M KASIE 0 mls/hr Titration Protocol Vancomycin HCl 1,500 mg in 500 mls @ 250 mls/hr 10/07/24 10:00 Vancomycin 1,500 Mg/Ns 500 Ml IVPB Q36H KASIE Cefepime HCl 2 gm/ Sodium 50 mls @ 100 mls/hr 10/06/24 09:00 10/06/24 08:22 Chloride IVPB Infused Q12H KASIE Infusion Dextrose 1,000 mls @ 100 mls/hr 10/06/24 00:17 Dextrose 5% 1,000 Ml IVPB PRN PRN Hypoglycemia Protocol Albumin Human 100 mls @ 60 mls/hr 10/06/24 12:00 10/06/24 12:18 Albutein IVPB 10/07/24 07:39 60 mls/hr Q6HR KASIE Administration Levothyroxine Sodium 100 mcg 10/07/24 06:30 Levothyroxine Sodium 100 Mcg Tablet PO DAILY@0630 KASIE Ondansetron HCl 4 mg 10/05/24 20:41 Ondansetron Inj 4 Mg/2 Ml Vial IV PUSH Q4H PRN Nausea Pantoprazole Sodium 40 mg 10/06/24 09:00 10/06/24 07:52 Pantoprazole Sodium Iv 40 Mg Vial IV PUSH 40 mg QAM KASIE Administration Polyethylene Glycol 17 gm 10/06/24 09:30 Polyethylene Glycol 3350 17 Gm Powd.Pack PO QAM PRN Constipation Sodium Chloride 10 ml 10/06/24 06:00 10/06/24 05:18 Central Line Flush IV PUSH 10 ml Q8HR KASIE Administration Sodium Chloride 20 ml 10/05/24 23:33 Central Line Flush IV PUSH PRN PRN after blood draws Radiology Results: ITS Impressions Head CT 10/05/24 16:32 IMPRESSION: No acute intracranial process. Labs Labs: Laboratory Results - last 24 hr 10/05/24 10/05/24 10/05/24 16:32 17:21 19:33 WBC 5.2 RBC 2.83 L Hgb 8.8 L Hct 27.7 L MCV 97.9 MCH 31.1 MCHC 31.8 L RDW 17.3 H Plt Count 166 MPV 10.3 Immature Gran % (Auto) 0.6 H Neut % (Auto) 68.5 Lymph % (Auto) 21.6 [place] % (Auto) 6.8 Eos % (Auto) 1.5 Baso % (Auto) 1.0 Lymph # (Auto) 1.12 [place] # (Auto) 0.4 Eos # (Auto) 0.1 Baso # (Auto) 0.1 Abs Immat Gran (auto) 0.03 Absolute Neuts (auto) 3.6 Absolute Nucleated RBC 0.000 Nucleated RBC % 0.0 PT 18.1 H INR 1.5 APTT 31.3 Puncture Site Right radial ABG pH 7.417 ABG pCO2 46.3 H ABG pO2 63.2 L ABG PO2/FiO2 Ratio 3.01 ABG HCO3 29.2 H ABG O2 Saturation 92.4 L ABG O2 Content 13.5 L ABG Base Excess 4.0 A-a Gradient 31.1 Oxyhemoglobin 88.4 L Carboxyhemoglobin 0.9 Methemoglobin 0.3 Reduced Hemoglobin 10.4 H Total Hemoglobin 10.8 L O2 Delivery Device Room air O2 Liters/Min Not Reportable FiO2 21 Sodium 132 L Potassium 3.9 Chloride 97 L Carbon Dioxide 31 H Anion Gap 4 BUN 38 H D Creatinine 1.19 H Estim Creat Clear Calc Not Reportable Estimated GFR 45 L Glucose 182 H POC Capillary Glucose Lactic Acid 0.9 Calcium 8.0 L Magnesium 1.6 Total Bilirubin 0.6 AST 31 ALT 17 Alkaline Phosphatase 38 Ammonia 13 Troponin I 0.012 NT-Pro-B Natriuret Pep > 16388 H Total Protein 7.1 Albumin 3.2 L Lipase 13 L Procalcitonin Urine Color Yellow Urine Appearance Turbid H Urine pH 5.5 Ur Specific [place] 1.012 Urine Protein 3+ H Urine Glucose (UA) Negative Urine Ketones Negative Ur Blood (Man) 2+ H Urine Nitrate Negative Urine Bilirubin Negative Urine Urobilinogen 1.0 Add Ur Microanalysis Reviewed Leukocyte Esterase Rfl 3+ H Urine RBC 51-100 H Urine WBC >100 H Ur Squamous Epith Cells Occasional Urine Bacteria 2+ H Urine Casts 6-10 Nasal MRSA (PCR) Urine Opiates Screen Negative Urine Methadone Screen Negative Ur Barbiturates Screen Negative Ur Phencyclidine Scrn Negative Ur Amphetamine Screen Negative U Benzodiazepines Scrn Negative Urine Cocaine Screen Negative U Cannabinoids Screen Negative 10/05/24 10/05/24 10/06/24 20:49 23:51 05:21 WBC 5.9 RBC 2.86 L Hgb 8.9 L Hct 28.4 L MCV 99.3 MCH 31.1 MCHC 31.3 L RDW 17.3 H Plt Count 162 MPV 10.0 Immature Gran % (Auto) 0.5 Neut % (Auto) 65.8 Lymph % (Auto) 21.7 [place] % (Auto) 8.3 Eos % (Auto) 2.9 Baso % (Auto) 0.8 Lymph # (Auto) 1.28 [place] # (Auto) 0.5 Eos # (Auto) 0.2 Baso # (Auto) 0.1 Abs Immat Gran (auto) 0.03 Absolute Neuts (auto) 3.9 Absolute Nucleated RBC 0.000 Nucleated RBC % 0.0 PT INR APTT Puncture Site ABG pH ABG pCO2 ABG pO2 ABG PO2/FiO2 Ratio ABG HCO3 ABG O2 Saturation ABG O2 Content ABG Base Excess A-a Gradient Oxyhemoglobin Carboxyhemoglobin Methemoglobin Reduced Hemoglobin Total Hemoglobin O2 Delivery Device O2 Liters/Min FiO2 Sodium 134 L Potassium 3.5 Chloride 97 L Carbon Dioxide 31 H Anion Gap 6 BUN 39 H Creatinine 1.26 H Estim Creat Clear Calc 36 Estimated GFR 42 L Glucose 153 H POC Capillary Glucose 185 H Lactic Acid Calcium 7.8 L Magnesium 1.6 Total Bilirubin 0.6 AST 34 ALT 18 Alkaline Phosphatase 39 Ammonia Troponin I NT-Pro-B Natriuret Pep Total Protein 7.2 Albumin 3.2 L Lipase Procalcitonin 0.2 Urine Color Urine Appearance Urine pH Ur Specific Nelson Urine Protein Urine Glucose (UA) Urine Ketones Ur Blood (Man) Urine Nitrate Urine Bilirubin Urine Urobilinogen Add Ur Microanalysis Leukocyte Esterase Rfl Urine RBC Urine WBC Ur Squamous Epith Cells Urine Bacteria Urine Casts Nasal MRSA (PCR) Not detected Urine Opiates Screen Urine Methadone Screen Ur Barbiturates Screen Ur Phencyclidine Scrn Ur Amphetamine Screen U Benzodiazepines Scrn Urine Cocaine Screen U Cannabinoids Screen 10/06/24 13:17 WBC RBC Hgb Hct MCV MCH MCHC RDW Plt Count MPV Immature Gran % (Auto) Neut % (Auto) Lymph % (Auto) [place] % (Auto) Eos % (Auto) Baso % (Auto) Lymph # (Auto) [place] # (Auto) Eos # (Auto) Baso # (Auto) Abs Immat Gran (auto) Absolute Neuts (auto) Absolute Nucleated RBC Nucleated RBC % PT INR APTT Puncture Site ABG pH ABG pCO2 ABG pO2 ABG PO2/FiO2 Ratio ABG HCO3 ABG O2 Saturation ABG O2 Content ABG Base Excess A-a Gradient Oxyhemoglobin Carboxyhemoglobin Methemoglobin Reduced Hemoglobin Total Hemoglobin O2 Delivery Device O2 Liters/Min FiO2 Sodium Potassium Chloride Carbon Dioxide Anion Gap BUN Creatinine Estim Creat Clear Calc Estimated GFR Glucose POC Capillary Glucose 147 H Lactic Acid Calcium Magnesium Total Bilirubin AST ALT Alkaline Phosphatase Ammonia Troponin I NT-Pro-B Natriuret Pep Total Protein Albumin Lipase Procalcitonin Urine Color Urine Appearance Urine pH Ur Specific [place] Urine Protein Urine Glucose (UA) Urine Ketones Ur Blood (Man) Urine Nitrate Urine Bilirubin Urine Urobilinogen Add Ur Microanalysis Leukocyte Esterase Rfl Urine RBC Urine WBC Ur Squamous Epith Cells Urine Bacteria Urine Casts Nasal MRSA (PCR) Urine Opiates Screen Urine Methadone Screen Ur Barbiturates Screen Ur Phencyclidine Scrn Ur Amphetamine Screen U Benzodiazepines Scrn Urine Cocaine Screen U Cannabinoids Screen Quality VTE Prophylaxis VTE prophylaxis: pharmacologic ordered
--- NOTE | 2024-10-06 16:29 | PCSTNOTE ---
Please refer to the Bedside Swallow Evaluation/Communication Evaluation in the EMR. Please note, silent aspiration cannot be ruled out at bedside. This pleasant 69 year old female patient was admitted to [facility] on 10/05 due to a UTI and Altered Mental Status. The patient has a past medical history significant for pneumonia and dementia. The patient is A&0X2 at baseline. A communication evaluation and bedside swallow evaluation was ordered to ensure the patient is not having difficulties with receptive or expressive language as well as cognition, and to ensure safety during oral intake. The patient has upper dentures but is edentulous on the lower portion of her mouth. Patient has not had lower dentures for ~a month. The patient was NPO but upon entry to the patients room the patient was eating corn chips. Patient stated that family had come to visit and despite education provided by RN regarding NPO to family, the patient was given the chips. Regarding communication, the patient verbalized that this is her baseline. Patient states that she is not having trouble with comprehension or expressive language at this time. Bedside Swallow Evaluation: During the BSE, trials of thin liquid, puree, mixed consistency, and solids were given via straw, spoon, and hand. Throughout all trials of different consistencies, the pt demonstrated no s/s of aspiration. The pt?s vocal quality remained clear after all trials and the pt did not cough/throat clear. Oral transit was timely. Oral residue was observed on the dylan cracker but was cleared with a sip of thin liquid. Laryngeal elevation was adequate and timely for all swallows. Please note that silent aspiration cannot be ruled out at bedside. Given the results of this assessment, it is recommended this pt receive an oral diet of soft and bite sized solids (IDDSI Level 6) due to lack of lower dentition and thin liquids (IDDSI Level 1). It is additionally recommended that the pt follow these standard swallowing precautions: Small bites/sips, clear oral residue with sip of thin liquid, sit upright during meals, and alternate solids/liquids with 1:1 supervision during meals to aid in oral intake due to weak upper extremities. Communication Evaluation: Following the BSE, the patient completed a communication evaluation. The patient demonstrated no deficits outside of the patients baseline regarding auditory comprehension, verbal expression, or orientation/cognition. The patient was able to answer yes/no questions, follow simple directions, label objects/body parts, perform automatic cued speech and open ended cued speech tasks. The patients speech was fluid and intelligible. Additionally, the patient was oriented to self and place as well as the reasoning for being in the hospital. SPENCER Dugan verbalized that the patients cognition has improved this date. Given the results of this assessment, no skilled speech therapy is warranted to target communication/cognition at this time. Dr. Hook and SPENCER Dugan were notified of BSE and communication evaluation results and recommendations. Thank you for this referral.
[2024-10-06] MEDS: FERROUS SULFATE 325 MG TABLET DR PO (17:37)
[2024-10-06] MEDS: ATORVASTATIN 40 MG TABLET PO (20:31)
[2024-10-07] VITALS (8 sets, daily range): BP systolic 102–128; BP diastolic 38–92; PULSE 65–81; RESP 14–23; TEMP 35.9–36.6; O2SAT 97–100
[2024-10-07 03:56] LABS: Hematocrit 27.8 % (37.0-47.0); Hemoglobin 8.7 g/dL (12.0-15.0); Immature Granulocyte Percent A 0.4 % (0-0.5); Lymphocytes Absolute Auto 0.77 K/mm3 (0.9-3.2); Mean Corpuscular HGB Conc 31.3 g/dl (32-36); Mean Corpuscular Hemoglobin 31.3 pg (26-34); Mean Corpuscular Volume 100.0 fl (80-100); Nucleated Red Blood Cells Absolute Auto 0.000 K/mm3 (0.0-0.012); Nucleated Red Blood Cells Perc 0.0 % (0.0-0.2); Platelet Count Result 142 k/mm3 (150-375); Red Blood Count 2.78 M/mm3 (4.2-5.4); White Blood Count 5.7 K/mm3 (4.5-10.0)
[2024-10-07 04:17] LABS: Alanine Aminotransferase 19 U/L (6-35); Albumin Level 4.1 g/dL (3.5-5.1); Alkaline Phosphatase 44 U/L (38-126); Anion Gap 12 mmol/L (4-12); Aspartate Amino Transferase 37 U/L (14-36); Bilirubin,Total 0.8 mg/dL (0.2-1.3); Blood Urea Nitrogen 36 mg/dL (7-17); Calcium 7.9 mg/dL (8.4-10.2); Carbon Dioxide 27 mmol/L (22-30); Chloride 100 mmol/L (98-107); Estimated CRCL calculation 40 ml/min; Estimated Glomerular Filt Rate 47; Glucose 186 mg/dL (65-110); Magnesium 1.7 mg/dL (1.6-2.3); Potassium 3.7 mmol/L (3.4-5.0); Sodium 139 mmol/L (137-145); Total Protein 7.8 g/dL (6.3-8.2)
[2024-10-07] MEDS: ALBUMIN HUMAN 25% 25 GM/100 ML 100 ML IVPB (05:41)
[2024-10-07] MEDS: LEVOTHYROXINE SODIUM 100 MCG TABLET PO (05:41)
[2024-10-07] MEDS: CENTRAL LINE FLUSH 10 ML IV PUSH (05:42)
[2024-10-07] MEDS: FERROUS SULFATE 325 MG TABLET DR PO ×2 (08:35→21:40)
[2024-10-07] MEDS: CEFEPIME 2 GM in SODIUM CHLORIDE 0.9% IV 50 ML 100 ML IVPB ×2 (08:35→21:41)
[2024-10-07] MEDS: PANTOPRAZOLE SODIUM IV 40 MG VIAL IV PUSH (08:35)
--- NOTE | 2024-10-07 09:26 | WPDINTPN ---
Progress Note: A&P Assessment and Plan (1) Acute alteration in mental status: Code(s): R41.82 - Altered mental status, unspecified Status: Acute Assessment and Plan: Patient presented with altered mental status, responding only to pain stimulus when EMS arrived at the long-term. Was found to be hypotensive and brought to the ED at [facility] -this morning patient is more awake, alert, oriented x2 which is her baseline -likely related to UTI/septic shock/hypotension (2) Septic shock: Code(s): A41.9 - Sepsis, unspecified organism; R65.21 - Severe sepsis with septic shock Status: Acute Assessment and Plan: 10/05: Patient presented from long-term with altered mental status, hypotension refractory to IV fluid bolus, right femoral central line was inserted and patient started on Levophed. -received a total of 1 L IV fluid bolus in the ER -patient was on maintenance IV fluids this was discontinued -will give albumin for intravascular volume expansion -lactic acid is within normal limits, procalcitonin is 0.2 -continue Levophed, maintain MAP > 65 mmHg for adequate end organ perfusion -monitor urine output and renal function -10/05: blood and urine cultures have been obtained and pending -10/05: Continue cefepime -MRSA nares is negative, will discontinue vancomycin (3) Urinary tract infection: Code(s): N39.0 - Urinary tract infection, site not specified Status: Acute Assessment and Plan: UA was positive for UTI, cultures have been obtained, continue antibiotics (4) Acute kidney injury superimposed on stage 3a chronic kidney disease: Code(s): N17.9 - Acute kidney failure, unspecified; N18.31 - Chronic kidney disease, stage 3a Status: Acute Assessment and Plan: Patient with acute on chronic kidney injury -adequately fluid-resuscitated given her congestive heart failure cardiomyopathy -albumin for intravascular volume expansion -continue to monitor urine output, renal function and electrolytes -creatinine back to baseline, continue to monitor (5) Combined systolic and diastolic congestive heart failure: Qualifiers: Heart failure chronicity: acute on chronic Qualified Code(s): I50.43 - Acute on chronic combined systolic (congestive) and diastolic (congestive) heart failure Code(s): I50.40 - Unspecified combined systolic (congestive) and diastolic (congestive) heart failure Status: Acute Assessment and Plan: 07/08/2024: Echocardiogram: EF 25-30%, hypokinesis of anteroseptum. LV chamber mildly enlarged, grade 2 diastolic dysfunction. Mild to moderate aortic valve stenosis, moderate pulmonary hypertension with RVSP of 52 mmHg Home medications include carvedilol, Lasix, hydralazine, Imdur and atorvastatin -patient came off vasopressors just yesterday, withhold above medications for now (6) GERD (gastroesophageal reflux disease): Code(s): K21.9 - Gastro-esophageal reflux disease without esophagitis Status: Acute Assessment and Plan: Protonix (7) HTN (hypertension): Qualifiers: Hypertension type: unspecified Qualified Code(s): I10 - Essential (primary) hypertension Code(s): I10 - Essential (primary) hypertension Status: Chronic Assessment and Plan: Hold all antihypertensives as patient just came off pressors (8) S/P AKA (above knee amputation) bilateral: Code(s): Z89.611 - Acquired absence of right leg above knee; Z89.612 - Acquired absence of left leg above knee Status: Acute Assessment and Plan: Likely related to diabetes and 0 peripheral vascular disease, this is a chronic condition Plan DVT prophylaxis: Heparin subQ Stress ulcer prophylaxis: Protonix Nutrition: Diabetic and heart healthy diet Code Status: No CPR, okay for intubation Critical Care Time Spent: 31 minutes Patient may transfer out of the ICU to medical floor Due to a high probability of clinically significant, life threatening deterioration, the patient required my highest level of preparedness to intervene emergently and I personally spent this critical care time directly and personally managing the patient. This critical care time included obtaining a history; examining the patient; pulse oximetry; ordering and review of studies; arranging urgent treatment with development of a management plan; evaluation of patient's response to treatment; frequent reassessment; and discussions with other providers. It was exclusive of separately billable procedures and treating other patients and teaching time. Please see Assessment and Plan section and the rest of the note for further information on patient assessment and treatment This dictation may have been done utilizing a voice recognition system. Attempts have been made to correct errors. However, there may be uncorrected grammatical, spelling, and recognitions errors present. Subjective Date/time seen: 10/07/24 09:26 Interval history: Reason for consult: Altered mental status, septic shock, UTI 10/07/2024: Patient seen and examined the ICU, is awake, alert, oriented x2. Urine output has been adequate, hemodynamically stable, adequate O2 sats. Patient has been off Levophed since yesterday afternoon. Urine output has been adequate, creatinine improving. Review of Systems Review of Systems: All systems reviewed & are unremarkable except as noted in HPI and below Exam Narrative: General: Pleasant female, in no acute distress HEENT:? Pupils equal and reactive, sclera is clear, dry oral mucosa Neck:? Supple Respiratory:? Clear to auscultation bilaterally, decreased air entry at bases. There is an induration on the right upper breast which the patient states she has had breast cancer for many years with history of right breast implant Cardiac:? S1-S2 normal, regular rate and rhythm Abdomen:? Soft, abdominal wall hernia, obese, nondistended, nontender Extremities:? Bilateral above-knee amputation, stumps appear normal, no edema, no swelling, no tenderness, no wounds Neuro:? Patient is awake, alert, oriented x2, She follows commands with her upper extremities, answers to questions appropriately Skin:? No skin lesions noted Psych:? Normal mentation and affect Objective Data Vital Signs Vital Signs: Vital Signs - 24 hr 10/06/24 10:00 10/06/24 10:00 10/06/24 10:00 Temperature Pulse Rate 62 62 62 Respiratory Rate 16 Blood Pressure 119/71 119/71 Pulse Oximetry 100 Oxygen Delivery Oxygen Flow Rate Fraction of Inspired Oxygen 10/06/24 11:00 10/06/24 12:00 10/06/24 12:00 Temperature 97.5 F L Pulse Rate 62 64 64 Respiratory Rate 18 Blood Pressure 126/79 132/86 132/86 Pulse Oximetry 100 Oxygen Delivery Oxygen Flow Rate Fraction of Inspired Oxygen 10/06/24 12:00 10/06/24 12:00 10/06/24 12:26 Temperature Pulse Rate 63 72 Respiratory Rate Blood Pressure 142/80 H Pulse Oximetry 100 Oxygen Delivery Room Air Oxygen Flow Rate Fraction of Inspired Oxygen 10/06/24 13:00 10/06/24 14:00 10/06/24 14:00 Temperature Pulse Rate 78 74 72 Respiratory Rate 14 Blood Pressure 120/97 H 111/72 111/72 Pulse Oximetry 96 Oxygen Delivery Oxygen Flow Rate Fraction of Inspired Oxygen 10/06/24 16:00 10/06/24 16:00 10/06/24 16:00 Temperature 96.9 F L Pulse Rate 62 62 Respiratory Rate 12 Blood Pressure 127/52 L Pulse Oximetry 100 100 Oxygen Delivery Nasal Cannula Oxygen Flow Rate 1 Fraction of Inspired Oxygen 10/06/24 16:00 10/06/24 18:00 10/06/24 18:00 Temperature Pulse Rate 63 73 73 Respiratory Rate 17 Blood Pressure 127/52 L 104/84 Pulse Oximetry 100 Oxygen Delivery Oxygen Flow Rate Fraction of Inspired Oxygen 10/06/24 18:00 10/06/24 20:00 10/06/24 20:00 Temperature Pulse Rate 73 67 Respiratory Rate Blood Pressure 104/84 118/59 L Pulse Oximetry 100 Oxygen Delivery Nasal Cannula Oxygen Flow Rate 1 Fraction of Inspired Oxygen 10/06/24 20:00 10/06/24 20:00 10/06/24 20:00 Temperature 98.3 F Pulse Rate 67 67 Respiratory Rate 20 Blood Pressure 118/59 L Pulse Oximetry 100 97 Oxygen Delivery Nasal Cannula Oxygen Flow Rate 1 Fraction of Inspired Oxygen 24 10/06/24 22:00 10/06/24 22:00 10/06/24 22:00 Temperature Pulse Rate 70 70 70 Respiratory Rate 17 Blood Pressure 107/48 L 107/48 L Pulse Oximetry 90 Oxygen Delivery Oxygen Flow Rate Fraction of Inspired Oxygen 10/07/24 00:00 10/07/24 00:00 10/07/24 00:00 Temperature Pulse Rate 71 71 Respiratory Rate Blood Pressure 102/38 L Pulse Oximetry 100 Oxygen Delivery Nasal Cannula Oxygen Flow Rate 1 Fraction of Inspired Oxygen 10/07/24 00:00 10/07/24 02:00 10/07/24 02:00 Temperature 97.7 F Pulse Rate 71 65 65 Respiratory Rate 23 H 14 Blood Pressure 102/38 L 106/92 H Pulse Oximetry 100 97 Oxygen Delivery Oxygen Flow Rate Fraction of Inspired Oxygen 10/07/24 02:00 10/07/24 04:00 10/07/24 04:00 Temperature Pulse Rate 65 70 Respiratory Rate Blood Pressure 106/92 H 128/70 Pulse Oximetry 100 Oxygen Delivery Nasal Cannula Oxygen Flow Rate 1 Fraction of Inspired Oxygen 10/07/24 04:00 10/07/24 04:00 10/07/24 06:00 Temperature 97.8 F Pulse Rate 70 70 69 Respiratory Rate 23 H Blood Pressure 128/70 Pulse Oximetry 100 Oxygen Delivery Oxygen Flow Rate Fraction of Inspired Oxygen 10/07/24 06:00 10/07/24 08:00 10/07/24 08:00 Temperature 97.8 F Pulse Rate 69 67 67 Respiratory Rate 23 H 20 20 Blood Pressure 104/67 115/58 L Pulse Oximetry 100 100 100 Oxygen Delivery Room Air Oxygen Flow Rate Fraction of Inspired Oxygen 10/07/24 08:00 10/07/24 08:00 Temperature Pulse Rate 72 Respiratory Rate Blood Pressure Pulse Oximetry 100 Oxygen Delivery Room Air Oxygen Flow Rate Fraction of Inspired Oxygen Intake/Output Intake/Output: Intake & Output 10/04/24 10/05/24 10/06/24 10/07/24 23:59 23:59 23:59 23:59 Intake Total 1209.7 1622.1 500 Output Total 700 275 Balance 1209.7 922.1 225 Meds/Results Medications: Active Medications Generic Name Dose Route Start Last Admin Trade Name Freq PRN Reason Stop Dose Admin Acetaminophen 650 mg 10/07/24 07:25 Acetaminophen 325 Mg Tablet PO Q6H PRN Mild Pain (1-3) or Fever Atorvastatin Calcium 40 mg 10/06/24 21:00 10/06/24 20:31 Atorvastatin 40 Mg Tablet PO 40 mg HS KASIE Administration Dextrose 12.5 gm 10/07/24 07:24 Dextrose 50% 25 Gm/50 Ml Syringe IV PUSH PRN PRN Hypoglycemia Protocol Ferrous Sulfate 325 mg 10/06/24 17:00 10/07/24 08:35 Ferrous Sulfate [address] PO 325 mg BID KASIE Administration Glucagon 1 mg 10/07/24 07:24 Glucagon For Inj 1 Mg Vial IM PRN PRN Hypoglycemia Protocol Glucose 15 gm 10/07/24 07:24 Glucose Oral Gel 15 Gm Of Glucse In 37.5 Gm Tube PO PRN PRN Hypoglycemia Protocol Heparin Sodium (Porcine) 5,000 units 10/06/24 06:00 10/07/24 05:41 Heparin Sodium 5,000 Units/Ml Vial SUB-Q 5,000 units Q8HR KASIE Administration Cefepime HCl 2 gm/ Sodium 50 mls @ 100 mls/hr 10/06/24 09:00 10/07/24 08:35 Chloride IVPB 100 mls/hr Q12H KASIE Administration Dextrose 1,000 mls @ 100 mls/hr 10/07/24 07:24 Dextrose 5% 1,000 Ml IVPB PRN PRN Hypoglycemia Protocol Insulin Aspart 1 - 3 units 10/07/24 21:00 Insulin Aspart (*Bkc) 100 Units/Ml SUB-Q HS KASIE Protocol Insulin Aspart 3 - 6 units 10/07/24 08:00 10/07/24 08:35 Insulin Aspart (*Bkc) 100 Units/Ml SUB-Q Not Given TIDWM KASIE Protocol Levothyroxine Sodium 100 mcg 10/07/24 06:30 10/07/24 05:41 Levothyroxine Sodium 100 Mcg Tablet PO 100 mcg DAILY@0630 KASIE Administration Ondansetron HCl 4 mg 10/05/24 20:41 Ondansetron Inj 4 Mg/2 Ml Vial IV PUSH Q4H PRN Nausea Pantoprazole Sodium 40 mg 10/06/24 09:00 10/07/24 08:35 Pantoprazole Sodium Iv 40 Mg Vial IV PUSH 40 mg QAM KASIE Administration Polyethylene Glycol 17 gm 10/06/24 09:30 Polyethylene Glycol 3350 17 Gm Powd.Pack PO QAM PRN Constipation Radiology Results: ITS Impressions Head CT 10/05/24 16:32 IMPRESSION: No acute intracranial process. Labs Labs: Laboratory Results - last 24 hr 10/06/24 10/06/24 10/06/24 13:17 16:51 20:41 WBC RBC Hgb Hct MCV MCH MCHC RDW Plt Count MPV Immature Gran % (Auto) Neut % (Auto) Lymph % (Auto) [place] % (Auto) Eos % (Auto) Baso % (Auto) Lymph # (Auto) [place] # (Auto) Eos # (Auto) Baso # (Auto) Abs Immat Gran (auto) Absolute Neuts (auto) Absolute Nucleated RBC Nucleated RBC % Sodium Potassium Chloride Carbon Dioxide Anion Gap BUN Creatinine Estim Creat Clear Calc Estimated GFR Glucose POC Capillary Glucose 147 H 156 H 184 H Lactic Acid Calcium Phosphorus Magnesium Total Bilirubin AST ALT Alkaline Phosphatase Total Protein Albumin 10/07/24 10/07/24 03:49 08:29 WBC 5.7 RBC 2.78 L Hgb 8.7 L Hct 27.8 L MCV 100.0 MCH 31.3 MCHC 31.3 L RDW 17.3 H Plt Count 142 L MPV 10.1 Immature Gran % (Auto) 0.4 Neut % (Auto) 75.1 H Lymph % (Auto) 13.6 L [place] % (Auto) 7.6 Eos % (Auto) 2.6 Baso % (Auto) 0.7 Lymph # (Auto) 0.77 L [place] # (Auto) 0.4 Eos # (Auto) 0.2 Baso # (Auto) 0.0 Abs Immat Gran (auto) 0.02 Absolute Neuts (auto) 4.3 Absolute Nucleated RBC 0.000 Nucleated RBC % 0.0 Sodium 139 Potassium 3.7 Chloride 100 Carbon Dioxide 27 Anion Gap 12 BUN 36 H Creatinine 1.15 H Estim Creat Clear Calc 40 Estimated GFR 47 L Glucose 186 H POC Capillary Glucose 162 H Lactic Acid 1.1 Calcium 7.9 L Phosphorus 3.7 Magnesium 1.7 Total Bilirubin 0.8 AST 37 H ALT 19 Alkaline Phosphatase 44 Total Protein 7.8 Albumin 4.1 Quality VTE Prophylaxis VTE prophylaxis: pharmacologic ordered
[2024-10-07] MEDS: INSULIN ASPART (*BKC) 100 UNITS/ML SUB-Q (12:04)
[2024-10-07] MEDS: ATORVASTATIN 40 MG TABLET PO (21:41)
--- NOTE | 2024-10-07 23:43 | PC.NURSE ---
This patient, Iris Pascual, was transferred to [facility] on 10/07/24 at 2340. Personal belongings sent with patient. Report given to SPENCER Camara. Appropriate documentation sent with patient.
[2024-10-08] MEDS: ACETAMINOPHEN 325 MG TABLET 650 MG PO ×2 (01:58→11:39)
[2024-10-08] MEDS: LEVOTHYROXINE SODIUM 100 MCG TABLET PO (05:45)
[2024-10-08 06:10] VITALS: BP 154/89; PULSE 82; RESP 20; TEMP 36.1; O2SAT 99
[2024-10-08 06:50] LABS: Hematocrit 28.4 % (37.0-47.0); Hemoglobin 9.0 g/dL (12.0-15.0); Immature Granulocyte Percent A 0.5 % (0-0.5); Lymphocytes Absolute Auto 1.21 K/mm3 (0.9-3.2); Mean Corpuscular HGB Conc 31.7 g/dl (32-36); Mean Corpuscular Hemoglobin 30.9 pg (26-34); Mean Corpuscular Volume 97.6 fl (80-100); Nucleated Red Blood Cells Absolute Auto 0.000 K/mm3 (0.0-0.012); Nucleated Red Blood Cells Perc 0.0 % (0.0-0.2); Platelet Count Result 175 k/mm3 (150-375); Red Blood Count 2.91 M/mm3 (4.2-5.4); White Blood Count 5.7 K/mm3 (4.5-10.0)
[2024-10-08 07:09] LABS: Alanine Aminotransferase 20 U/L (6-35); Albumin Level 4.3 g/dL (3.5-5.1); Alkaline Phosphatase 37 U/L (38-126); Anion Gap 12 mmol/L (4-12); Aspartate Amino Transferase 39 U/L (14-36); Bilirubin,Total 1.0 mg/dL (0.2-1.3); Blood Urea Nitrogen 36 mg/dL (7-17); Calcium 7.9 mg/dL (8.4-10.2); Carbon Dioxide 24 mmol/L (22-30); Chloride 98 mmol/L (98-107); Estimated CRCL calculation 41 ml/min; Estimated Glomerular Filt Rate 48; Glucose 92 mg/dL (65-110); Magnesium 1.7 mg/dL (1.6-2.3); Potassium 3.9 mmol/L (3.4-5.0); Sodium 134 mmol/L (137-145); Total Protein 7.9 g/dL (6.3-8.2)
[2024-10-08 08:00] VITALS: BP 140/70; PULSE 79; RESP 16; TEMP 35.2; O2SAT 95
[2024-10-08] MEDS: CEFEPIME 2 GM in SODIUM CHLORIDE 0.9% IV 50 ML 100 ML IVPB ×2 (08:56→20:13)
[2024-10-08] MEDS: FERROUS SULFATE 325 MG TABLET DR PO ×2 (08:56→17:27)
[2024-10-08] MEDS: PANTOPRAZOLE 40 MG TABLET PO (08:56)
[2024-10-08 14:00] VITALS: BP 143/89; PULSE 93; RESP 16; TEMP 34.8; O2SAT 100
--- NOTE | 2024-10-08 14:29 | P.PNIM_ITS ---
Progress Note: A&P Assessment and Plan (1) Acute alteration in mental status: Code(s): R41.82 - Altered mental status, unspecified Status: Acute Assessment and Plan: Patient presented with altered mental status, responding only to pain stimulus when EMS arrived at the [facility]. Was found to be hypotensive and brought to the ED at [facility] -this morning patient is more awake, alert, oriented x2 which is her baseline -likely related to UTI/septic shock/hypotension 10/08/24: * Shock resolved. * Labs and VS improving * Remains on Cefepime. * BC 1/4 bottles with Gram positive cocci growth. Awaiting identification and sensitivity. * Alert and oriented 2-3 for this provider. (2) Septic shock: Code(s): A41.9 - Sepsis, unspecified organism; R65.21 - Severe sepsis with septic shock Status: Acute Assessment and Plan: 10/05: Patient presented from retirement with altered mental status, hypotension refractory to IV fluid bolus, right femoral central line was inserted and patient started on Levophed. -received a total of 1 L IV fluid bolus in the ER -patient was on maintenance IV fluids this was discontinued -will give albumin for intravascular volume expansion -lactic acid is within normal limits, procalcitonin is 0.2 -continue Levophed, maintain MAP > 65 mmHg for adequate end organ perfusion -monitor urine output and renal function -10/05: blood and urine cultures have been obtained and pending -10/05: Continue cefepime -MRSA nares is negative, will discontinue vancomycin 10/08/24: * Continue Cefepime, positive Blood cultures with 1/4 bottles. Awaiting identification. Sepsis has resolved and shock has resolved. (3) Urinary tract infection: Code(s): N39.0 - Urinary tract infection, site not specified Status: Acute Assessment and Plan: UA was positive for UTI, cultures have been obtained, continue antibiotics 10/08/24: * Awaiting results of Urine culture. (4) Acute kidney injury superimposed on stage 3a chronic kidney disease: Code(s): N17.9 - Acute kidney failure, unspecified; N18.31 - Chronic kidney disease, stage 3a Status: Acute Assessment and Plan: Patient with acute on chronic kidney injury -adequately fluid-resuscitated given her congestive heart failure cardiomyopathy -albumin for intravascular volume expansion -continue to monitor urine output, renal function and electrolytes -creatinine back to baseline, continue to monitor 10/08/24: * Renal function is normal w/BUN and Cr of 36/1.12 present. (5) Combined systolic and diastolic congestive heart failure: Qualifiers: Heart failure chronicity: acute on chronic Qualified Code(s): I50.43 - Acute on chronic combined systolic (congestive) and diastolic (congestive) heart failure Code(s): I50.40 - Unspecified combined systolic (congestive) and diastolic (congestive) heart failure Status: Acute Assessment and Plan: 07/08/2024: Echocardiogram: EF 25-30%, hypokinesis of anteroseptum. LV chamber mildly enlarged, grade 2 diastolic dysfunction. Mild to moderate aortic valve stenosis, moderate pulmonary hypertension with RVSP of 52 mmHg Home medications include carvedilol, Lasix, hydralazine, Imdur and atorvastatin -patient came off vasopressors just yesterday, withhold above medications for now 10/08/24: * Restarting home meds of Carvedilol, Lasix, Hydralazine, Imdur and Atorvastat in. * Adjust dosing as needed on restart and trend VS. * BP running 114-150s/50s-89 (6) GERD (gastroesophageal reflux disease): Code(s): K21.9 - Gastro-esophageal reflux disease without esophagitis Status: Acute Assessment and Plan: Protonix 10/08/24: * Continue PPI Therapy (7) HTN (hypertension): Qualifiers: Hypertension type: unspecified Qualified Code(s): I10 - Essential (primary) hypertension Code(s): I10 - Essential (primary) hypertension Status: Chronic Assessment and Plan: * Restarted meds on 10/08/24 (8) S/P AKA (above knee amputation) bilateral: Code(s): Z89.611 - Acquired absence of right leg above knee; Z89.612 - Acquired absence of left leg above knee Status: Acute Assessment and Plan: Likely related to diabetes and 0 peripheral vascular disease, this is a chronic condition Time Spent With Patient Time with patient: 25 - 35 minutes Subjective Date/time seen: 10/08/24 14:29 Interval history: This pt is examined at the bedside since moving out of ICU last evening after being treated for Urosepsis. She has Gram Positive Cocci in 1/4 bottles of Blood culture growing. Urine culture also pending. She is currently on Cefepime with stable VS and labs. No acute complaints or new symptoms. Review of Systems Review of Systems: All systems reviewed & are unremarkable except as noted in HPI and below Exam Narrative: General: Pleasant female, in no acute distress, lying supine in bed at this time. HEENT:? Pupils equal and reactive, sclera is clear, dry oral mucosa Neck:? Supple, FROM Respiratory:? Decreased inspiration, likely due to effort. Cardiac:? S1-S2 normal, regular rate and rhythm with Holosystolic, rhythmic murmur. Abdomen:? Soft, abdominal wall hernia, obese, nondistended, nontender Extremities:? Bilateral above-knee amputation, stumps appear normal, no edema, no swelling, no tenderness, no wounds Neuro:? Patient is awake, alert, oriented x2, She follows commands with her upper extremities, answers to questions appropriately Skin:? No skin lesions noted Psych:? Normal mentation and affect Objective Data Vital Signs Vital Signs: Vital Signs - 24 hr 10/07/24 16:00 10/07/24 20:00 10/07/24 23:55 Temperature 97.7 F 96.6 F L Pulse Rate 74 81 Respiratory Rate 16 20 Blood Pressure 114/87 123/59 L Pulse Oximetry 100 100 100 Oxygen Delivery Room Air 10/08/24 06:10 10/08/24 08:00 10/08/24 09:00 Temperature 97 F L 95.3 F L Pulse Rate 82 79 Respiratory Rate 20 16 Blood Pressure 154/89 H 140/70 Pulse Oximetry 99 95 Oxygen Delivery Room Air Intake/Output Intake/Output: Intake & Output 10/05/24 10/06/24 10/07/24 10/08/24 23:59 23:59 23:59 23:59 Intake Total 1209.7 1622.1 1525 290 Output Total 700 625 300 Balance 1209.7 922.1 900 -10 Meds/Results Medications: Active Medications Generic Name Dose Route Start Last Admin Trade Name Freq PRN Reason Stop Dose Admin Acetaminophen 650 mg 10/07/24 07:25 10/08/24 11:39 Acetaminophen 325 Mg Tablet PO 650 mg Q6H PRN Administration Mild Pain (1-3) or Fever Atorvastatin Calcium 40 mg 10/06/24 21:00 10/07/24 21:41 Atorvastatin 40 Mg Tablet PO 40 mg HS KASIE Administration Dextrose 12.5 gm 10/07/24 07:24 Dextrose 50% 25 Gm/50 Ml Syringe IV PUSH PRN PRN Hypoglycemia Protocol Ferrous Sulfate 325 mg 10/06/24 17:00 10/08/24 08:56 Ferrous Sulfate [address] PO 325 mg BID KASIE Administration Glucagon 1 mg 10/07/24 07:24 Glucagon For Inj 1 Mg Vial IM PRN PRN Hypoglycemia Protocol Glucose 15 gm 10/07/24 07:24 Glucose Oral Gel 15 Gm Of Glucse In 37.5 Gm Tube PO PRN PRN Hypoglycemia Protocol Heparin Sodium (Porcine) 5,000 units 10/06/24 06:00 10/08/24 05:45 Heparin Sodium 5,000 Units/Ml Vial SUB-Q 5,000 units Q8HR KASIE Administration Cefepime HCl 2 gm/ Sodium 50 mls @ 100 mls/hr 10/06/24 09:00 10/08/24 09:26 Chloride IVPB Infused Q12H KASIE Infusion Dextrose 1,000 mls @ 100 mls/hr 10/07/24 07:24 Dextrose 5% 1,000 Ml IVPB PRN PRN Hypoglycemia Protocol Insulin Aspart 1 - 3 units 10/07/24 21:00 10/07/24 21:42 Insulin Aspart (*Bkc) 100 Units/Ml SUB-Q Not Given HS KASIE Protocol Insulin Aspart 3 - 6 units 10/07/24 08:00 10/08/24 12:38 Insulin Aspart (*Bkc) 100 Units/Ml SUB-Q Not Given TIDWM KASIE Protocol Levothyroxine Sodium 100 mcg 10/07/24 06:30 10/08/24 05:45 Levothyroxine Sodium 100 Mcg Tablet PO 100 mcg DAILY@0630 KASIE Administration Ondansetron HCl 4 mg 10/05/24 20:41 Ondansetron Inj 4 Mg/2 Ml Vial IV PUSH Q4H PRN Nausea Pantoprazole Sodium 40 mg 10/08/24 09:00 10/08/24 08:56 Pantoprazole 40 Mg Tablet PO 40 mg QAM KASIE Administration Polyethylene Glycol 17 gm 10/06/24 09:30 Polyethylene Glycol 3350 17 Gm Powd.Pack PO QAM PRN Constipation Radiology Results: ITS Impressions Head CT 10/05/24 16:32 IMPRESSION: No acute intracranial process. Labs Labs: Laboratory Results - last 24 hr 10/07/24 10/07/24 10/08/24 16:14 20:45 06:33 WBC 5.7 RBC 2.91 L Hgb 9.0 L Hct 28.4 L MCV 97.6 MCH 30.9 MCHC 31.7 L RDW 17.3 H Plt Count 175 MPV 10.1 Immature Gran % (Auto) 0.5 Neut % (Auto) 65.7 Lymph % (Auto) 21.1 [place] % (Auto) 9.1 H Eos % (Auto) 2.6 Baso % (Auto) 1.0 Lymph # (Auto) 1.21 [place] # (Auto) 0.5 Eos # (Auto) 0.2 Baso # (Auto) 0.1 Abs Immat Gran (auto) 0.03 Absolute Neuts (auto) 3.8 Absolute Nucleated RBC 0.000 Nucleated RBC % 0.0 Sodium 134 L Potassium 3.9 Chloride 98 Carbon Dioxide 24 Anion Gap 12 BUN 36 H Creatinine 1.12 H Estim Creat Clear Calc 41 Estimated GFR 48 L Glucose 92 POC Capillary Glucose 170 H 186 H Calcium 7.9 L Phosphorus 3.2 Magnesium 1.7 Total Bilirubin 1.0 AST 39 H ALT 20 Alkaline Phosphatase 37 L Total Protein 7.9 Albumin 4.3 10/08/24 10/08/24 07:48 11:43 WBC RBC Hgb Hct MCV MCH MCHC RDW Plt Count MPV Immature Gran % (Auto) Neut % (Auto) Lymph % (Auto) [place] % (Auto) Eos % (Auto) Baso % (Auto) Lymph # (Auto) [place] # (Auto) Eos # (Auto) Baso # (Auto) Abs Immat Gran (auto) Absolute Neuts (auto) Absolute Nucleated RBC Nucleated RBC % Sodium Potassium Chloride Carbon Dioxide Anion Gap BUN Creatinine Estim Creat Clear Calc Estimated GFR Glucose POC Capillary Glucose 87 100 Calcium Phosphorus Magnesium Total Bilirubin AST ALT Alkaline Phosphatase Total Protein Albumin Quality VTE Prophylaxis VTE prophylaxis: pharmacologic ordered
[2024-10-08] MEDS: MAGNESIUM HYDROXIDE SUSP 30 ML UDC PO (15:58)
[2024-10-08] MEDS: SODIUM BICARBONATE TAB 650 MG TABLET PO (17:27)
[2024-10-08] MEDS: ISOSORBIDE DINITRATE 10 MG TABLET PO (17:27)
[2024-10-08] MEDS: GABAPENTIN 300 MG CAPSULE PO (17:27)
[2024-10-08] MEDS: ATORVASTATIN 40 MG TABLET PO (20:13)
[2024-10-08 21:16] VITALS: BP 135/78; PULSE 80; RESP 17; TEMP 36.3; O2SAT 98
[2024-10-08] MEDS: traMADol HCL (*CRX) 50 MG TABLET PO (21:29)
[2024-10-08 22:13] VITALS: O2SAT 98
[2024-10-09 05:34] VITALS: BP 121/63; PULSE 76; RESP 16; TEMP 36.2; O2SAT 99
[2024-10-09] MEDS: LEVOTHYROXINE SODIUM 100 MCG TABLET PO (05:47)
[2024-10-09 07:11] LABS: Hematocrit 29.5 % (37.0-47.0); Hemoglobin 9.4 g/dL (12.0-15.0); Immature Granulocyte Percent A 0.3 % (0-0.5); Lymphocytes Absolute Auto 0.73 K/mm3 (0.9-3.2); Mean Corpuscular HGB Conc 31.9 g/dl (32-36); Mean Corpuscular Hemoglobin 31.0 pg (26-34); Mean Corpuscular Volume 97.4 fl (80-100); Nucleated Red Blood Cells Absolute Auto 0.000 K/mm3 (0.0-0.012); Nucleated Red Blood Cells Perc 0.0 % (0.0-0.2); Platelet Count Result 174 k/mm3 (150-375); Red Blood Count 3.03 M/mm3 (4.2-5.4); White Blood Count 6.6 K/mm3 (4.5-10.0)
[2024-10-09 07:24] LABS: INR 1.8; Prothrombin Time 20.6 Seconds (11.1-14.7)
[2024-10-09 07:25] LABS: Partial Thromboplastin Time 36.9 Seconds (22.3-36.8)
[2024-10-09 07:29] LABS: Alanine Aminotransferase 25 U/L (6-35); Albumin Level 4.2 g/dL (3.5-5.1); Alkaline Phosphatase 43 U/L (38-126); Anion Gap 17 mmol/L (4-12); Aspartate Amino Transferase 44 U/L (14-36); Bilirubin,Total 1.2 mg/dL (0.2-1.3); Blood Urea Nitrogen 36 mg/dL (7-17); Calcium 7.9 mg/dL (8.4-10.2); Carbon Dioxide 21 mmol/L (22-30); Chloride 96 mmol/L (98-107); Estimated CRCL calculation 42 ml/min; Estimated Glomerular Filt Rate 49; Glucose 102 mg/dL (65-110); Magnesium 1.8 mg/dL (1.6-2.3); Potassium 3.4 mmol/L (3.4-5.0); Sodium 134 mmol/L (137-145); Total Protein 8.4 g/dL (6.3-8.2)
[2024-10-09] MEDS: CYANOCOBALAMIN 1,000 MCG TABLET 1000 MCG PO (09:51)
[2024-10-09] MEDS: CALCIUM/VITAMIN D 500 MG/5 MCG (200 I.U.) TABLET PO (09:51)
[2024-10-09] MEDS: FUROSEMIDE 40 MG TABLET PO (09:52)
[2024-10-09] MEDS: CEFEPIME 2 GM in SODIUM CHLORIDE 0.9% IV 50 ML 100 ML IVPB ×2 (09:52→21:21)
[2024-10-09 14:00] VITALS: BP 97/46; PULSE 71; RESP 20; TEMP 36.6; O2SAT 99
--- NOTE | 2024-10-09 14:09 | PM.IMPN ---
Progress Note: A&P Assessment and Plan (1) Acute alteration in mental status: Code(s): R41.82 - Altered mental status, unspecified Status: Acute Assessment and Plan: Patient presented with altered mental status, responding only to pain stimulus when EMS arrived at the [facility]. Was found to be hypotensive and brought to the ED at [facility] CT brain showing no acute intracranial process. Patient became more awake, alert, oriented x2 which is her baseline - likely related to UTI/septic shock/hypotension More altered today. She does nod to questions at times but remains nonverbal. Glucose 84. Could be related to Tramdol given last night(?) but this is a home med. Hold Tramadol. Check CT brain. Check TSH, B12. Continue to re-orient (2) Septic shock: Code(s): A41.9 - Sepsis, unspecified organism; R65.21 - Severe sepsis with septic shock Status: Acute Assessment and Plan: Patient presented from long term with altered mental status, hypotension refractory to IV fluid bolus, right femoral central line was inserted and patient started on Levophed 10/05 -received a total of 1 L IV fluid bolus in the ER -patient was on maintenance IV fluids that has been discontinued -will give albumin for intravascular volume expansion -lactic acid is within normal limits, procalcitonin is 0.2 -able to wean off Levophed to maintain an appropriate MAP > 65 BCx and UCx collected and cefepime started. MRSA nares is negative Blood cultures with 1/4 bottles. Awaiting identification. Sepsis has resolved and shock has resolved. Add back Vanco given the mental status change as we await BCx results. (3) Urinary tract infection: Code(s): N39.0 - Urinary tract infection, site not specified Status: Acute Assessment and Plan: UA was positive for UTI, cultures were obtained UCx showing 10-25K colonies of mixed urogenital yulia She has a chronic Kaplan. Urosepsis still suspected as source. (4) CKD (chronic kidney disease) stage 3, GFR 30-59 ml/min: Code(s): N18.30 - Chronic kidney disease, stage 3 unspecified Status: Acute Assessment and Plan: Patient with chronic kidney injury Cr 1.2 on admission and within her baseline. -adequately fluid-resuscitated given her congestive heart failure cardiomyopathy -albumin for intravascular volume expansion Cr today at 1.1. Continue to monitor urine output, renal function and electrolytes (5) Combined systolic and diastolic congestive heart failure: Qualifiers: Heart failure chronicity: acute on chronic Qualified Code(s): I50.43 - Acute on chronic combined systolic (congestive) and diastolic (congestive) heart failure Code(s): I50.40 - Unspecified combined systolic (congestive) and diastolic (congestive) heart failure Status: Acute Assessment and Plan: 07/08/2024: Echocardiogram: EF 25-30%, hypokinesis of anteroseptum. LV chamber mildly enlarged, grade 2 diastolic dysfunction. Mild to moderate aortic valve stenosis, moderate pulmonary hypertension with RVSP of 52 mmHg Home medications include carvedilol, Lasix, hydralazine, Imdur and atorvastatin Restarted home meds of Carvedilol, Lasix, Hydralazine, Imdur and Atorvastatin. Adjust dosing as needed Monitor (6) HTN (hypertension): Qualifiers: Hypertension type: unspecified Qualified Code(s): I10 - Essential (primary) hypertension Code(s): I10 - Essential (primary) hypertension Status: Chronic Assessment and Plan: Restarted meds on 10/08/24 BP stable. (7) S/P AKA (above knee amputation) bilateral: Code(s): Z89.611 - Acquired absence of right leg above knee; Z89.612 - Acquired absence of left leg above knee Status: Acute Assessment and Plan: Likely related to diabetes and peripheral vascular disease, this is a chronic condition (8) GERD (gastroesophageal reflux disease): Code(s): K21.9 - Gastro-esophageal reflux disease without esophagitis Status: Acute Assessment and Plan: Protonix Plan Breast mass - CT from June showing Right anterior chest wall seroma versus breast implant Abdominal mass - seroma in the anterior abdominal wall with wall calcifications. Code status - modified DVT prophylaxis - Heparin Subjective Date/time seen: 10/09/24 14:09 Interval history: 69yo female with extensive medical history including recurrent C diff colitis, chronic indwelling Kaplan catheter with recurrent UTIs, dementia (baseline A&O x2) residing at nursing facility, essential hypertension, peripheral vascular disease with bilateral AKA, combined systolic-diastolic heart failure, insulin-dependent diabetes mellitus, hypothyroidism, GERD, CKD stage 3, anemia андрей presents to [facility] ER on 10/05/2024 as she was noted to be responsive to painful stimuli only. Her last known normal was around noon on the day of admission. Assuming care. Chart reviewed. Patient is refusing pills per nursing staff. she does not answer questions. She actively resists part of the exam. Review of Systems Review of Systems: ROS unobtainable: Yes unobtainable due to mental status Exam Narrative: AF 97.1 121/63 65 16 99% ra Gen - NARD sitting up in bed. HEENT - resists pupil and oral exam. Neck - no nuchal rigidity. Chest - Lungs clear anteriorly. Large firm mass in the right upper outer quadrant of breast with a smaller dark eschar center that is dry and without drainage. CV - RRR S1/S2 Abd - Soft, obese with large central firm mass that is well demarcated. - Kaplan secured draining cloudy yellow urine Ext - bilateral AKA Neuro - eyes closed but opens the spontaneously. moans at times. does not respond to questions. Psych - unable to assess. Skin - Warm and dry Objective Data Vital Signs Vital Signs: Vital Signs - 24 hr 10/08/24 21:16 10/08/24 22:13 10/09/24 05:34 Temperature 97.4 F L 97.1 F L Pulse Rate 80 76 Respiratory Rate 17 16 Blood Pressure 135/78 121/63 Pulse Oximetry 98 98 99 Oxygen Delivery Room Air 10/09/24 08:00 Temperature Pulse Rate Respiratory Rate Blood Pressure Pulse Oximetry Oxygen Delivery Room Air Intake/Output Intake/Output: Intake & Output 10/06/24 10/07/24 10/08/24 10/09/24 23:59 23:59 23:59 23:59 Intake Total 1622.1 1525 580 600 Output Total 700 625 600 400 Balance 922.1 900 -20 200 Meds/Results Medications: Active Medications Generic Name Dose Route Start Last Admin Trade Name Freq PRN Reason Stop Dose Admin Acetaminophen 650 mg 10/07/24 07:25 10/08/24 11:39 Acetaminophen 325 Mg Tablet PO 650 mg Q6H PRN Administration Mild Pain (1-3) or Fever Atorvastatin Calcium 40 mg 10/06/24 21:00 10/08/24 20:13 Atorvastatin 40 Mg Tablet PO 40 mg HS KASIE Administration Bisacodyl 10 mg 10/08/24 14:37 Bisacodyl 10 Mg Suppository RECTAL DAILY PRN constipation Calcium Carbonate 500 mg 10/09/24 09:00 10/09/24 09:51 Calcium/Vitamin D 500 Mg/5 Mcg (200 I.U.) Tablet PO 500 mg QAM KASIE Administration Carvedilol 12.5 mg 10/08/24 21:00 10/08/24 20:13 Carvedilol 12.5 Mg Tablet PO 12.5 mg Q12HR KASIE Administration Cyanocobalamin 1,000 mcg 10/09/24 09:00 10/09/24 09:51 Cyanocobalamin 1,000 Mcg Tablet PO 1,000 mcg DAILY KASIE Administration Dextrose 12.5 gm 10/07/24 07:24 Dextrose 50% 25 Gm/50 Ml Syringe IV PUSH PRN PRN Hypoglycemia Protocol Ferrous Sulfate 325 mg 10/06/24 17:00 10/08/24 17:27 Ferrous Sulfate [address] PO 325 mg BID KASIE Administration Furosemide 40 mg 10/09/24 09:00 10/09/24 09:52 Furosemide 40 Mg Tablet PO 40 mg DAILY KASIE Administration Gabapentin 300 mg 10/08/24 17:00 10/08/24 17:27 Gabapentin 300 Mg Capsule PO 300 mg TID KASIE Administration Glucagon 1 mg 10/07/24 07:24 Glucagon For Inj 1 Mg Vial IM PRN PRN Hypoglycemia Protocol Glucose 15 gm 10/07/24 07:24 Glucose Oral Gel 15 Gm Of Glucse In 37.5 Gm Tube PO PRN PRN Hypoglycemia Protocol Heparin Sodium (Porcine) 5,000 units 10/06/24 06:00 10/09/24 05:47 Heparin Sodium 5,000 Units/Ml Vial SUB-Q 5,000 units Q8HR KASIE Administration Hydralazine HCl 10 mg 10/08/24 17:00 10/08/24 20:13 Hydralazine 10 Mg Tablet PO 10 mg TID KASIE Administration Cefepime HCl 2 gm/ Sodium 50 mls @ 100 mls/hr 10/06/24 09:00 10/09/24 10:22 Chloride IVPB Infused Q12H KASIE Infusion Dextrose 1,000 mls @ 100 mls/hr 10/07/24 07:24 Dextrose 5% 1,000 Ml IVPB PRN PRN Hypoglycemia Protocol Dextrose/Sodium Chloride 1,000 mls @ 60 mls/hr 10/09/24 14:10 Dextrose 5% Sodium Chloride 0.9% IV CONT .[id number] [facility] Insulin Aspart 1 - 3 units 10/07/24 21:00 10/08/24 20:15 Insulin Aspart (*Bkc) 100 Units/Ml SUB-Q Not Given HS [facility] Protocol Insulin Aspart 3 - 6 units 10/07/24 08:00 10/09/24 13:36 Insulin Aspart (*Bkc) 100 Units/Ml SUB-Q Not Given TIDWM [facility] Protocol Isosorbide Dinitrate 10 mg 10/08/24 17:00 10/08/24 17:27 Isosorbide Dinitrate 10 Mg Tablet PO 10 mg TID KASIE Administration Levothyroxine Sodium 100 mcg 10/07/24 06:30 10/09/24 05:47 Levothyroxine Sodium 100 Mcg Tablet PO 100 mcg DAILY@0630 KASIE Administration Loratadine 10 mg 10/09/24 09:00 10/09/24 09:52 Loratadine 10 Mg Tablet PO 10 mg DAILY KASIE Administration Magnesium Citrate 150 ml 10/08/24 14:37 Magnesium Citrate 300 Ml Btl PO DAILY PRN Constipation Magnesium Hydroxide 30 ml 10/08/24 14:37 10/08/24 15:58 Magnesium Hydroxide Susp 30 Ml Udc PO 30 ml HS PRN Administration IF NO BM IN 3 DAYS Multivitamins/Calcium 1 tablet 10/09/24 09:00 10/09/24 09:52 Therapeutic Multivitamins/Minerals Tab (*Bkc) PO 1 tablet DAILY KASIE Administration Ondansetron HCl 4 mg 10/05/24 20:41 Ondansetron Inj 4 Mg/2 Ml Vial IV PUSH Q4H PRN Nausea Pantoprazole Sodium 40 mg 10/09/24 09:00 10/09/24 09:52 Pantoprazole 40 Mg Tablet PO 40 mg DAILY KASIE Administration Polyethylene Glycol 17 gm 10/06/24 09:30 10/08/24 17:27 Polyethylene Glycol 3350 17 Gm Powd.Pack PO 17 gm QAM PRN Administration Constipation Potassium Chloride 10 meq 10/09/24 09:00 10/09/24 09:51 Potassium Chloride 10 Meq Er Tablet PO 10 meq DAILY KASIE Administration Sodium Bicarbonate 650 mg 10/08/24 17:00 10/08/24 17:27 Sodium Bicarbonate Tab 650 Mg Tablet PO 650 mg BID KASIE Administration Tramadol HCl 50 mg 10/08/24 14:37 10/08/24 21:29 Tramadol Hcl (*Crx) 50 Mg Tablet PO 50 mg Q8H PRN Administration pain 4-6 Vancomycin HCl 1 each 10/09/24 14:10 Vancomycin Pharmacist To Dose IVPB PER PROTOCOL KASIE Radiology Results: ITS Impressions Head CT 10/05/24 16:32 IMPRESSION: No acute intracranial process. Labs Labs: Laboratory Results - last 24 hr 10/08/24 10/08/24 10/09/24 16:47 20:07 06:41 WBC 6.6 RBC 3.03 L Hgb 9.4 L Hct 29.5 L MCV 97.4 MCH 31.0 MCHC 31.9 L RDW 17.7 H Plt Count 174 MPV 10.2 Immature Gran % (Auto) 0.3 Neut % (Auto) 80.4 H Lymph % (Auto) 11.0 L Hardin % (Auto) 6.0 Eos % (Auto) 1.7 Baso % (Auto) 0.6 Lymph # (Auto) 0.73 L Hardin # (Auto) 0.4 Eos # (Auto) 0.1 Baso # (Auto) 0.0 Abs Immat Gran (auto) 0.02 Absolute Neuts (auto) 5.3 Absolute Nucleated RBC 0.000 Nucleated RBC % 0.0 PT 20.6 H INR 1.8 APTT 36.9 H Sodium 134 L Potassium 3.4 Chloride 96 L Carbon Dioxide 21 L Anion Gap 17 H BUN 36 H Creatinine 1.10 H Estim Creat Clear Calc 42 Estimated GFR 49 L Glucose 102 POC Capillary Glucose 144 H 110 H Calcium 7.9 L Magnesium 1.8 Total Bilirubin 1.2 AST 44 H ALT 25 Alkaline Phosphatase 43 Total Protein 8.4 H Albumin 4.2 10/09/24 10/09/24 07:41 11:27 WBC RBC Hgb Hct MCV MCH MCHC RDW Plt Count MPV Immature Gran % (Auto) Neut % (Auto) Lymph % (Auto) Hardin % (Auto) Eos % (Auto) Baso % (Auto) Lymph # (Auto) Hardin # (Auto) Eos # (Auto) Baso # (Auto) Abs Immat Gran (auto) Absolute Neuts (auto) Absolute Nucleated RBC Nucleated RBC % PT INR APTT Sodium Potassium Chloride Carbon Dioxide Anion Gap BUN Creatinine Estim Creat Clear Calc Estimated GFR Glucose POC Capillary Glucose 105 84 Calcium Magnesium Total Bilirubin AST ALT Alkaline Phosphatase Total Protein Albumin
[2024-10-09] MEDS: DEXTROSE 5%/0.9% SOD CHL 1,000 ML 60 ML IV CONT (15:00)
[2024-10-09 15:09] LABS: Hematocrit 27.4 % (37.0-47.0); Hemoglobin 8.9 g/dL (12.0-15.0); Immature Granulocyte Percent A 0.3 % (0-0.5); Lymphocytes Absolute Auto 0.91 K/mm3 (0.9-3.2); Mean Corpuscular HGB Conc 32.5 g/dl (32-36); Mean Corpuscular Hemoglobin 31.1 pg (26-34); Mean Corpuscular Volume 95.8 fl (80-100); Nucleated Red Blood Cells Absolute Auto 0.000 K/mm3 (0.0-0.012); Nucleated Red Blood Cells Perc 0.0 % (0.0-0.2); Platelet Count Result 160 k/mm3 (150-375); Red Blood Count 2.86 M/mm3 (4.2-5.4); White Blood Count 5.8 K/mm3 (4.5-10.0)
[2024-10-09] MEDS: VANCOMYCIN 2,000 MG/NS 500 ML 2,000 MG/500 ML BAG 250 MG IVPB (15:14)
[2024-10-09 15:17] LABS: Ammonia < 9 umol/L (9-30)
[2024-10-09 15:20] LABS: Anion Gap 15 mmol/L (4-12); Blood Urea Nitrogen 36 mg/dL (7-17); Calcium 7.9 mg/dL (8.4-10.2); Carbon Dioxide 20 mmol/L (22-30); Chloride 99 mmol/L (98-107); Estimated CRCL calculation 42 ml/min; Estimated Glomerular Filt Rate 49; Glucose 91 mg/dL (65-110); Potassium 3.5 mmol/L (3.4-5.0); Sodium 134 mmol/L (137-145)
[2024-10-09 15:41] LABS: Procalcitonin 0.2 ng/mL
[2024-10-09 15:50] LABS: CRP 4.8 mg/dL (<1.0)
[2024-10-09 15:55] LABS: Thyroid Stimulating Hormone Reflex 10.000 uIU/mL (0.465-4.68)
[2024-10-09 16:54] LABS: Free T4 Free Thyroxine Reflex 1.14 ng/dL (0.78-2.19)
[2024-10-09 17:46] LABS: Vitamin B12 > 1000.0 pg/mL (239-931)
[2024-10-09 17:56] LABS: Total Triiodothyronine (T3) 0.30 NG/ML (0.82-1.58)
--- NOTE | 2024-10-09 19:06 | PC.NURSE ---
On 10/09/24, the EXTERNAL GRINDER TENDER, Saranya Dominguez ], provided care and completed [employer] documentation on this patient. I have reviewed the EXTERNAL GRINDER TENDER's documentation and agree with the findings.
[2024-10-09 20:00] VITALS: PULSE 71; RESP 20; O2SAT 99
[2024-10-09 20:17] VITALS: BP 108/87; PULSE 73; RESP 16; TEMP 35.9; O2SAT 100
[2024-10-09] MEDS: ATORVASTATIN 40 MG TABLET PO (21:24)
[2024-10-09 22:07] VITALS: RESP 20; O2SAT 95
[2024-10-10 05:32] VITALS: BP 134/93; PULSE 74; RESP 21; TEMP 36.4; O2SAT 98
[2024-10-10 06:15] LABS: Hematocrit 28.7 % (37.0-47.0); Hemoglobin 8.9 g/dL (12.0-15.0); Immature Granulocyte Percent A 0.4 % (0-0.5); Lymphocytes Absolute Auto 0.69 K/mm3 (0.9-3.2); Mean Corpuscular HGB Conc 31.0 g/dl (32-36); Mean Corpuscular Hemoglobin 31.3 pg (26-34); Mean Corpuscular Volume 101.1 fl (80-100); Nucleated Red Blood Cells Absolute Auto 0.000 K/mm3 (0.0-0.012); Nucleated Red Blood Cells Perc 0.0 % (0.0-0.2); Platelet Count Result 153 k/mm3 (150-375); Red Blood Count 2.84 M/mm3 (4.2-5.4); White Blood Count 7.4 K/mm3 (4.5-10.0)
[2024-10-10 06:47] LABS: Alanine Aminotransferase 20 U/L (6-35); Albumin Level 3.9 g/dL (3.5-5.1); Alkaline Phosphatase 37 U/L (38-126); Anion Gap 18 mmol/L (4-12); Aspartate Amino Transferase 41 U/L (14-36); Bilirubin,Total 0.9 mg/dL (0.2-1.3); Blood Urea Nitrogen 37 mg/dL (7-17); CRP 4.6 mg/dL (<1.0); Calcium 7.7 mg/dL (8.4-10.2); Carbon Dioxide 16 mmol/L (22-30); Chloride 104 mmol/L (98-107); Estimated CRCL calculation 42 ml/min; Estimated Glomerular Filt Rate 50; Glucose 156 mg/dL (65-110); Magnesium 2.1 mg/dL (1.6-2.3); Potassium 3.3 mmol/L (3.4-5.0); Sodium 138 mmol/L (137-145); Total Protein 7.7 g/dL (6.3-8.2)
[2024-10-10] MEDS: DEXTROSE 5%/0.9% SOD CHL 1,000 ML 60 ML IV CONT ×2 (08:35→23:13)
[2024-10-10] MEDS: CEFEPIME 2 GM in SODIUM CHLORIDE 0.9% IV 50 ML 100 ML IVPB (09:29)
--- NOTE | 2024-10-10 13:05 | PM.IMPN ---
Progress Note: A&P Assessment and Plan (1) Acute alteration in mental status: Code(s): R41.82 - Altered mental status, unspecified Status: Acute Assessment and Plan: Patient presented with altered mental status, responding only to pain stimulus when EMS arrived at the [place]. Was found to be hypotensive and brought to the ED at [facility] CT brain showing no acute intracranial process. Patient initially became more awake, alert but now more altered again. Could be related to Tramadol but this is a home med and now on hold. Repeat CT brain no acute findings. B12 level okay. PCT level low. TSH elevated but FT4 normal. BCx growing Staph Epi - probably a contaminant. Clinical consistent with dystonic reaction but not on antipsychotic meds. Neuro consult. Order LP. Benadryl once. Change Abx to cover for meningitis. Add Acyclovir. Check ABG (2) Septic shock: Code(s): A41.9 - Sepsis, unspecified organism; R65.21 - Severe sepsis with septic shock Status: Acute Assessment and Plan: Patient [facility] with altered mental status, hypotension refractory to IV fluid bolus, right femoral central line was inserted and patient started on Levophed 10/05 -received a total of 1 L IV fluid bolus in the ER -patient was on maintenance IV fluids that has been discontinued -was given albumin for intravascular volume expansion -lactic acid is within normal limits, procalcitonin is 0.2 -able to wean off Levophed to maintain an appropriate MAP > 65 BCx and UCx collected and cefepime started. MRSA nares is negative Blood cultures with 1/4 bottles positive for Staph Epi Sepsis has resolved and shock has resolved. Abx adjusted (3) Urinary tract infection: Code(s): N39.0 - Urinary tract infection, site not specified Status: Acute Assessment and Plan: UA was positive for UTI, cultures were obtained UCx showing 10-25K colonies of mixed urogenital yulia She has a chronic Kaplan. Urosepsis still suspected as possible source. (4) CKD (chronic kidney disease) stage 3, GFR 30-59 ml/min: Code(s): N18.30 - Chronic kidney disease, stage 3 unspecified Status: Acute Assessment and Plan: Patient with chronic kidney injury Cr 1.2 on admission and within her baseline. -adequately fluid-resuscitated given her congestive heart failure cardiomyopathy -albumin for intravascular volume expansion Cr today at 1.08. Continue to monitor urine output, renal function and electrolytes (5) Combined systolic and diastolic congestive heart failure: Qualifiers: Heart failure chronicity: acute on chronic Qualified Code(s): I50.43 - Acute on chronic combined systolic (congestive) and diastolic (congestive) heart failure Code(s): I50.40 - Unspecified combined systolic (congestive) and diastolic (congestive) heart failure Status: Acute Assessment and Plan: 07/08/2024: Echocardiogram: EF 25-30%, hypokinesis of anteroseptum. LV chamber mildly enlarged, grade 2 diastolic dysfunction. Mild to moderate aortic valve stenosis, moderate pulmonary hypertension with RVSP of 52 mmHg Restarted home meds of Carvedilol, Lasix, Hydralazine, Imdur and Atorvastatin. Adjust dosing as needed Monitor (6) HTN (hypertension): Qualifiers: Hypertension type: unspecified Qualified Code(s): I10 - Essential (primary) hypertension Code(s): I10 - Essential (primary) hypertension Status: Chronic Assessment and Plan: Restarted meds on 10/08 but not taking due to AMS BP stable. (7) S/P AKA (above knee amputation) bilateral: Code(s): Z89.611 - Acquired absence of right leg above knee; Z89.612 - Acquired absence of left leg above knee Status: Acute Assessment and Plan: Likely related to diabetes and peripheral vascular disease, this is a chronic condition (8) GERD (gastroesophageal reflux disease): Code(s): K21.9 - Gastro-esophageal reflux disease without esophagitis Status: Acute Assessment and Plan: Protonix Plan Breast mass - CT from June showing right anterior chest wall seroma versus breast implant Abdominal mass - seroma in the anterior abdominal wall with wall calcifications. Code status - modified DVT prophylaxis - Heparin; change to SCDs Subjective Date/time seen: 10/10/24 13:05 Interval history: 69yo female with extensive medical history including recurrent C diff colitis, chronic indwelling Kaplan catheter with recurrent UTIs, dementia (baseline A&O x2) residing at nursing facility, essential hypertension, peripheral vascular disease with bilateral AKA, combined systolic-diastolic heart failure, insulin-dependent diabetes mellitus, hypothyroidism, GERD, CKD stage 3, anemia андрей presents to [facility] ER on 10/05/2024 as she was noted to be responsive to painful stimuli only. Her last known normal was around noon on the day of admission. Patient unable to provide hx. Review of Systems Review of Systems: ROS unobtainable: Yes unobtainable due to mental status Exam Narrative: AF 97.5 134/93 74 21 98% ra Gen - NARD sitting up in bed. HEENT - resists pupil exam Neck - no nuchal rigidity. Chest - Lungs clear anteriorly. Large firm mass in the right upper breast CV - RRR S1/S2 Abd - Soft, obese with large central firm mass that is well demarcated. grimaces with exam at times - Kaplan secured draining clear yellow urine Ext - bilateral AKA Neuro - eyes closed but opens them spontaneously. Does not respond to questions. Chewing and grimacing frequently. Psych - unable to assess. Skin - Warm and dry Objective Data Vital Signs Vital Signs: Vital Signs - 24 hr 10/09/24 14:00 10/09/24 20:00 10/09/24 20:17 Temperature 97.8 F 96.7 F L Pulse Rate 71 71 73 Respiratory Rate 20 20 16 Blood Pressure 97/46 L 108/87 Pulse Oximetry 99 99 100 Oxygen Delivery Room Air Fraction of Inspired Oxygen 24 10/09/24 22:07 10/10/24 05:32 Temperature 97.5 F L Pulse Rate 74 Respiratory Rate 20 21 H Blood Pressure 134/93 H Pulse Oximetry 95 98 Oxygen Delivery Room Air Fraction of Inspired Oxygen 21 Intake/Output Intake/Output: Intake & Output 10/07/24 10/08/24 10/09/24 10/10/24 23:59 23:59 23:59 23:59 Intake Total 5627 360 3180 1000 Output Total 625 600 700 300 Balance 900 -20 450 700 Meds/Results Medications: Active Medications Generic Name Dose Route Start Last Admin Trade Name Freq PRN Reason Stop Dose Admin Acetaminophen 650 mg 10/07/24 07:25 10/08/24 11:39 Acetaminophen 325 Mg Tablet PO 650 mg Q6H PRN Administration Mild Pain (1-3) or Fever Atorvastatin Calcium 40 mg 10/06/24 21:00 10/09/24 21:24 Atorvastatin 40 Mg Tablet PO 40 mg HS KASIE Administration Bisacodyl 10 mg 10/08/24 14:37 Bisacodyl 10 Mg Suppository RECTAL DAILY PRN constipation Calcium Carbonate 500 mg 10/09/24 09:00 10/09/24 09:51 Calcium/Vitamin D 500 Mg/5 Mcg (200 I.U.) Tablet PO 500 mg QAM KASIE Administration Carvedilol 12.5 mg 10/08/24 21:00 10/09/24 21:24 Carvedilol 12.5 Mg Tablet PO 12.5 mg Q12HR KASIE Administration Cyanocobalamin 1,000 mcg 10/09/24 09:00 10/09/24 09:51 Cyanocobalamin 1,000 Mcg Tablet PO 1,000 mcg DAILY KASIE Administration Dextrose 12.5 gm 10/07/24 07:24 Dextrose 50% 25 Gm/50 Ml Syringe IV PUSH PRN PRN Hypoglycemia Protocol Ferrous Sulfate 325 mg 10/06/24 17:00 10/09/24 18:27 Ferrous Sulfate [address] PO Not Given BID KASIE Furosemide 40 mg 10/09/24 09:00 10/09/24 09:52 Furosemide 40 Mg Tablet PO 40 mg DAILY KASIE Administration Gabapentin 300 mg 10/08/24 17:00 10/09/24 18:27 Gabapentin 300 Mg Capsule PO Not Given TID KASIE Glucagon 1 mg 10/07/24 07:24 Glucagon For Inj 1 Mg Vial IM PRN PRN Hypoglycemia Protocol Glucose 15 gm 10/07/24 07:24 Glucose Oral Gel 15 Gm Of Glucse In 37.5 Gm Tube PO PRN PRN Hypoglycemia Protocol Heparin Sodium (Porcine) 5,000 units 10/06/24 06:00 10/10/24 05:32 Heparin Sodium 5,000 Units/Ml Vial SUB-Q 5,000 units Q8HR KASIE Administration Hydralazine HCl 10 mg 10/08/24 17:00 10/09/24 18:27 Hydralazine 10 Mg Tablet PO Not Given TID KASIE Cefepime HCl 2 gm/ Sodium 50 mls @ 100 mls/hr 10/06/24 09:00 10/10/24 09:29 Chloride IVPB 100 mls/hr Q12H KASIE Administration Dextrose 1,000 mls @ 100 mls/hr 10/07/24 07:24 Dextrose 5% 1,000 Ml IVPB PRN PRN Hypoglycemia Protocol Dextrose/Sodium Chloride 1,000 mls @ 60 mls/hr 10/09/24 14:10 10/10/24 08:35 Dextrose 5% Sodium Chloride 0.9% IV CONT 60 mls/hr .[id number] KASIE Administration Insulin Aspart 1 - 3 units 10/07/24 21:00 10/09/24 21:33 Insulin Aspart (*Bkc) 100 Units/Ml SUB-Q Not Given HS [facility] Protocol Insulin Aspart 3 - 6 units 10/07/24 08:00 10/10/24 09:10 Insulin Aspart (*Bkc) 100 Units/Ml SUB-Q Not Given TIDWM [facility] Protocol Isosorbide Dinitrate 10 mg 10/08/24 17:00 10/09/24 18:26 Isosorbide Dinitrate 10 Mg Tablet PO Not Given TID KASIE Levothyroxine Sodium 100 mcg 10/07/24 06:30 10/10/24 05:36 Levothyroxine Sodium 100 Mcg Tablet PO Not Given DAILY@0630 [facility] Loratadine 10 mg 10/09/24 09:00 10/09/24 09:00 Loratadine 10 Mg Tablet PO Not Given DAILY [facility] Magnesium Citrate 150 ml 10/08/24 14:37 Magnesium Citrate 300 Ml Btl PO DAILY PRN Constipation Magnesium Hydroxide 30 ml 10/08/24 14:37 10/08/24 15:58 Magnesium Hydroxide Susp 30 Ml Udc PO 30 ml HS PRN Administration IF NO BM IN 3 DAYS Multivitamins/Calcium 1 tablet 10/09/24 09:00 10/09/24 09:00 Therapeutic Multivitamins/Minerals Tab (*Bkc) PO Not Given DAILY [facility] Ondansetron HCl 4 mg 10/05/24 20:41 Ondansetron Inj 4 Mg/2 Ml Vial IV PUSH Q4H PRN Nausea Pantoprazole Sodium 40 mg 10/09/24 09:00 10/09/24 09:00 Pantoprazole 40 Mg Tablet PO Not Given DAILY [facility] Polyethylene Glycol 17 gm 10/06/24 09:30 10/08/24 17:27 Polyethylene Glycol 3350 17 Gm Powd.Pack PO 17 gm QAM PRN Administration Constipation Potassium Chloride 10 meq 10/09/24 09:00 10/09/24 09:00 Potassium Chloride 10 Meq Er Tablet PO Not Given DAILY [facility] Sodium Bicarbonate 650 mg 10/08/24 17:00 10/09/24 18:27 Sodium Bicarbonate Tab 650 Mg Tablet PO Not Given BID [facility] Tramadol HCl 50 mg 10/08/24 14:37 10/08/24 21:29 Tramadol Hcl (*Crx) 50 Mg Tablet PO 50 mg Q8H PRN Administration pain 4-6 Radiology Results: ITS Impressions Head CT 10/09/24 14:49 IMPRESSION: 1. No acute intracranial process. 2. Age-related changes the brain including mild to moderate diffuse volume loss and mild to moderate scattered white matter hypoattenuation consistent with chronic small vessel ischemic disease. Labs Labs: Laboratory Results - last 24 hr 10/05/24 10/09/24 10/09/24 16:13 15:00 15:01 WBC 5.8 RBC 2.86 L Hgb 8.9 L Hct 27.4 L MCV 95.8 MCH 31.1 MCHC 32.5 RDW 17.7 H Plt Count 160 MPV 10.1 Immature Gran % (Auto) 0.3 Neut % (Auto) 72.8 Lymph % (Auto) 15.6 L [place] % (Auto) 8.1 Eos % (Auto) 2.2 Baso % (Auto) 1.0 Lymph # (Auto) 0.91 [place] # (Auto) 0.5 Eos # (Auto) 0.1 Baso # (Auto) 0.1 Abs Immat Gran (auto) 0.02 Absolute Neuts (auto) 4.2 Absolute Nucleated RBC 0.000 Nucleated RBC % 0.0 Sodium 134 L Potassium 3.5 Chloride 99 Carbon Dioxide 20 L Anion Gap 15 H BUN 36 H Creatinine 1.10 H Estim Creat Clear Calc 42 Estimated GFR 49 L Glucose 91 POC Capillary Glucose 174 H Lactic Acid 0.9 Calcium 7.9 L Phosphorus Magnesium Total Bilirubin AST ALT Alkaline Phosphatase Ammonia < 9 L C-Reactive Protein 4.8 H Total Protein Albumin Vitamin B12 > 1000.0 H Folate 6.6 Procalcitonin 0.2 TSH (Reflex) 10.000 H Free T4 1.14 Total T3 0.30 L 10/09/24 10/09/24 10/10/24 16:36 20:19 05:59 WBC 7.4 RBC 2.84 L Hgb 8.9 L Hct 28.7 L MCV 101.1 H D MCH 31.3 MCHC 31.0 L RDW 17.9 H Plt Count 153 MPV 10.5 H Immature Gran % (Auto) 0.4 Neut % (Auto) 84.7 H Lymph % (Auto) 9.4 L [place] % (Auto) 4.3 Eos % (Auto) 0.7 Baso % (Auto) 0.5 Lymph # (Auto) 0.69 L [place] # (Auto) 0.3 Eos # (Auto) 0.1 Baso # (Auto) 0.0 Abs Immat Gran (auto) 0.03 Absolute Neuts (auto) 6.2 Absolute Nucleated RBC 0.000 Nucleated RBC % 0.0 Sodium 138 Potassium 3.3 L Chloride 104 Carbon Dioxide 16 L Anion Gap 18 H BUN 37 H Creatinine 1.08 H Estim Creat Clear Calc 42 Estimated GFR 50 L Glucose 156 H POC Capillary Glucose 103 117 H Lactic Acid Calcium 7.7 L Phosphorus 2.7 Magnesium 2.1 Total Bilirubin 0.9 AST 41 H ALT 20 Alkaline Phosphatase 37 L Ammonia C-Reactive Protein 4.6 H Total Protein 7.7 Albumin 3.9 Vitamin B12 Folate Procalcitonin TSH (Reflex) Free T4 Total T3 10/10/24 10/10/24 07:58 11:29 WBC RBC Hgb Hct MCV MCH MCHC RDW Plt Count MPV Immature Gran % (Auto) Neut % (Auto) Lymph % (Auto) [place] % (Auto) Eos % (Auto) Baso % (Auto) Lymph # (Auto) [place] # (Auto) Eos # (Auto) Baso # (Auto) Abs Immat Gran (auto) Absolute Neuts (auto) Absolute Nucleated RBC Nucleated RBC % Sodium Potassium Chloride Carbon Dioxide Anion Gap BUN Creatinine Estim Creat Clear Calc Estimated GFR Glucose POC Capillary Glucose 162 H 159 H Lactic Acid Calcium Phosphorus Magnesium Total Bilirubin AST ALT Alkaline Phosphatase Ammonia C-Reactive Protein Total Protein Albumin Vitamin B12 Folate Procalcitonin TSH (Reflex) Free T4 Total T3
[2024-10-10 14:00] VITALS: BP 97/58; PULSE 77; RESP 18; TEMP 36.1; O2SAT 98
[2024-10-10] MEDS: AMPICILLIN SODIUM 2 GM in SODIUM CHLORIDE 0.9% IV 100 ML 200 ML IVPB ×2 (14:05→20:27)
[2024-10-10 15:16] LABS: Alveolar/Arterial O2 Gradient 66.4 mmHg; Fractional Inspired Oxygen 21 %; HCO3 ABG 18.4 mEq/l (22.0-26.0); Oxygen Content ABG 11.4 %vol (16.0-22.0); PCO2 ABG 29.5 mmHg (35.0-45.0); PO2 FiO2 Ratio Arterial Blood 2.29 %
[2024-10-10 15:34] LABS: Modified Allen's Test Pass; Oxygen Saturation ABG 85.0 % (95.0-100.0); PO2 ABG 48.0 mmHg (80.0-100.0); Site Drawn RIGHT RADIAL
[2024-10-10] MEDS: ACYCLOVIR SODIUM IVPB 750 MG in DEXTROSE 5% IN WATER 250 ML 250 MG IVPB (15:49)
[2024-10-10] MEDS: VANCOMYCIN 1,500 MG/NS 500 ML 1,500 MG/500 ML BAG 250 MG IVPB (16:18)
[2024-10-10] MEDS: cefTRIAXone 2 GM in SODIUM CHLORIDE 0.9% IV 100 ML 200 ML IVPB (18:10)
--- NOTE | 2024-10-10 18:30 | P.CONNEU_ITS ---
Assessment and Plan Assessment and plan (1) Acute metabolic encephalopathy: Code(s): G93.41 - Metabolic encephalopathy Status: Acute (2) Unresponsive episode: Code(s): R40.4 - Transient alteration of awareness Status: Acute (3) Type 2 diabetes mellitus: Code(s): E11.9 - Type 2 diabetes mellitus without complications Status: Acute (4) CKD (chronic kidney disease) stage 3, GFR 30-59 ml/min: Code(s): N18.30 - Chronic kidney disease, stage 3 unspecified Status: Acute (5) C. difficile diarrhea: Onset Date: 01/2024 Code(s): A04.72 - Enterocolitis due to Clostridium difficile, not specified as recurrent Status: Acute (6) S/P AKA (above knee amputation) bilateral: Code(s): Z89.611 - Acquired absence of right leg above knee; Z89.612 - Acquired absence of left leg above knee Status: Acute (7) Pneumonia: Code(s): J18.9 - Pneumonia, unspecified organism Status: Acute Plan In her current state is difficult to make a definitive decision regarding etiology for the change in mental status. She does have a fair degree of medical problems. Her blood gases also show abnormalities a pH of 7.4 but pCO2 was 29.5 and PO2 was 48 with oxygen saturation 85%. Hemoglobin low at 8.5. She also has had recurrent C diff diarrhea. Patient has a chronic urinary catheter and carries diagnosis of dementia. a spinal tap and EEG may help since the CT scan of brain did not show any acute abnormalities however the testing of for these would be limited in view of her ability to cooperate in her current state. Concurrent metabolic etiology of course is a possibility and is being pursued from internal medicine point of view. I noted you have added acyclovir and she is already on ceftriaxone. I noted the tramadol is on hold. I agree with these. Serum B12 folic acid level were tested were normal on 10/09/2024. The spinal tap may help look for any intracranial infection such as viral encephalitis Or opportunistic infection. Consult date: 10/10/24 HPI: Iris Pascual is a 69 year old female Being evaluated for altered mental status. Apparently she was admitted to the hospital on 10/05/2024. She has history of congestive cardiac failure and bilateral AKA, chronic indwelling Kaplan catheter and C diff. positive state. She has been a resident of senior living. Patient has insulin-dependent diabetes mellitus. Initially she was responsive to painful stimuli only. She was hypotensive in emergency room. Her hemoglobin 8.8 and creatinine 1.19. BNP was greater than 30,000 however it is chronically elevated. CT scan of the head did not show any acute process. She was treated with antibiotics and IV fluid. Her echocardiogram done in January 2024 shows ejection fraction of 25-30%. The patient unable to offer any history with her current mental status and seizure appears to be somewhat restless and keeps eyes closed. Her son was present the time the evaluation. Review of her records revealed her arterial blood gases today shows pH was 7.41 and pCO2 was 29.5 and PO2 was 48 on room air. Creatinine was 1.08. Hemoglobin 8.9. Apparently her mental status improved 2 days ago and now she has Vaishali declined again. Review of Systems 2 Review of Systems: ROS unobtainable: Yes unobtainable due to medical condition PMFSH Past Medical History Medical History (Updated 10/10/24 @ 18:39 by Chirag Antonio MD) Dementia Chronic indwelling Kaplan catheter CKD (chronic kidney disease) stage 3, GFR 30-59 ml/min With baseline creatinine between 1.3 and 1.6 Iron deficiency anemia History of ESBL E. coli infection Recurrent Clostridioides difficile infection Anemia Pneumonia Stercoral colitis Urinary tract infection due to extended-spectrum beta lactamase (ESBL) producing Escherichia coli Type 2 diabetes mellitus Hypertension C. difficile diarrhea (01/2024) Gastroesophageal reflux disease History of breast cancer Thyroid cancer Hyperlipidemia Peripheral vascular disease Non-STEMI (non-ST elevated myocardial infarction) Combined systolic and diastolic congestive heart failure Echo 01/2024 demonstrated stable systolic dysfunction with EF of 25-30% but worsening diastolic function with grade 3-4 dysfunction with elevated left atrial pressures, mild right ventricular enlargement with hypokinesis of the right ventricle, mild aortic stenosis with mild aortic regurgitation, mild pulmonary hypertension with RVSP of 41 with [id number] pericardial effusion among other abnormalities Neuropathy Psychiatric disorder Surgical History Surgical History History of thyroidectomy History of ventral hernia repair With chronic calcified seroma History of above-knee amputation of both lower extremities History of right breast implant Patient reports that it was radiation implant History of lumpectomy of left breast Family History Family History Mother Family history of type 2 diabetes mellitus, Onset Age: 55 Father Acute myocardial infarction, Onset Age: 58 Social History Social History Social History: Surrogate medical decision maker: Ailyn Turner, daughter. Code status: Do not resuscitate with selective treatment (paperwork accompanies the patient). Smoking status: Unknown if ever smoked Second hand tobacco smoke exposure: No Alcohol intake: unknown Substance use: unknown Substance use type: does not use Do You Feel Safe in your Home?: Yes Lack of Transportation: No Lack of Food: Never True Current Housing: I Have Housing Concerned About Future Housing: No Difficulty Paying Gas/Electric Bills: No Difficulty Paying for Meds: No Currently Unemployed: No Education: Decline to Answer Difficulty w/ Childcare or Family Care: No Spiritual care concerns: No Meds Home Medications and Allergies Home Medications ?Medication ?Instructions ?Recorded ?Confirmed ?Type atorvastatin 40 mg tablet 40 mg PO HS 12/05/21 10/05/24 History levothyroxine 100 mcg tablet 100 mcg PO DAILY 12/05/21 10/05/24 History gabapentin 300 mg capsule 300 mg PO TID 05/16/22 10/05/24 History potassium chloride 10 mEq 10 meq PO DAILY 05/16/22 10/05/24 History capsule,extended release tramadol 50 mg tablet 50 mg PO Q8H PRN pain 01/30/24 10/05/24 History magnesium citrate (Citroma oral 150 ml PO DAILY PRN Constipation 02/15/24 10/05/24 History solution) magnesium hydroxide 400 mg/5 mL 400 mg PO HS PRN Constipation 02/15/24 10/05/24 History oral suspension (Milk of Magnesia) sodium phosphates 19 gram-7 118 ml RECTAL DAILY PRN 02/15/24 10/05/24 History gram/118 mL enema (Fleet Enema) Constipation ferrous sulfate 325 mg (65 mg 325 mg PO BID #90 tabs 02/29/24 10/05/24 Rx iron) tablet,delayed release acetaminophen 325 mg capsule 650 mg PO Q4H PRN pain or fever 05/04/24 10/05/24 History calcium 600 mg (as 1 cap PO DAILY 05/04/24 10/05/24 History carbonate)-vitamin D3 5 mcg (200 unit) capsule (Calcium 600 + D(3)) cyanocobalamin (vitamin B-12) 1,000 mcg PO DAILY 05/04/24 10/05/24 History 1,000 mcg capsule multivitamin,tx-minerals 1 cap PO DAILY 05/04/24 10/05/24 History (Multi-Vitamin HP/Minerals capsule) bisacodyl 10 mg rectal suppository 10 mg RECTAL DAILY PRN constipation 07/06/24 10/05/24 History insulin aspart U-100 100 unit/mL See Rx Instructions .Route .COMPLEX 07/06/24 10/05/24 History subcutaneous solution (Novolog U-100 Insulin aspart) carvedilol 12.5 mg tablet (Coreg) 12.5 mg PO Q12HR #60 tabs 07/18/24 10/05/24 Rx furosemide 40 mg tablet 40 mg PO DAILY #30 tabs 07/18/24 10/05/24 Rx hydralazine 10 mg tablet 10 mg PO TID #90 tabs 07/18/24 10/05/24 Rx isosorbide dinitrate 10 mg tablet 10 mg PO TID #90 tabs 07/18/24 10/05/24 Rx sodium bicarbonate 650 mg tablet 650 mg PO BID #28 tabs 07/18/24 10/05/24 Rx cetirizine 10 mg tablet 10 mg PO DAILY 10/05/24 10/05/24 History pantoprazole 40 mg tablet,delayed 40 mg PO DAILY 10/05/24 10/05/24 History release (Protonix) silver sulfadiazine 1 % topical 1 applic topical DAILY 10/05/24 10/05/24 History cream (Silvadene) Allergies Allergy/AdvReac Type Severity Reaction Status Date / Time codeine Allergy Unknown Verified 05/21/24 10:56 Vital Signs Vital Signs - 24 hr 10/09/24 20:00 10/09/24 20:17 10/09/24 22:07 Temperature 96.7 F L Pulse Rate 71 73 Respiratory Rate 20 16 20 Blood Pressure 108/87 Pulse Oximetry 99 100 95 Oxygen Delivery Room Air Room Air Fraction of Inspired Oxygen 24 21 10/10/24 05:32 10/10/24 08:00 10/10/24 14:00 Temperature 97.5 F L 96.9 F L Pulse Rate 74 77 Respiratory Rate 21 H 18 Blood Pressure 134/93 H 97/58 L Pulse Oximetry 98 98 Oxygen Delivery Room Air Fraction of Inspired Oxygen Exam 2 Narrative: Patient her eyes tightly closed and resists looking her pupil. No nuchal rigidity. She does respond to mild pressure above her eyebrow on both sides. No apparent facial asymmetry. She has bilateral above-knee amputation. No difference in the tone on both upper limbs. Results Labs 10/10/24 05:59 10/10/24 05:59 Labs: Short CBC 10/10/24 Range/Units 05:59 WBC 7.4 (4.5-10.0) K/mm3 Hgb 8.9 L (12.0-15.0) g/dL Hct 28.7 L (37.0-47.0) % Plt Count 153 (150-375) k/mm3 BMP 10/10/24 05:59 Sodium 138 Potassium 3.3 L Chloride 104 Carbon Dioxide 16 L BUN 37 H Creatinine 1.08 H Glucose 156 H Calcium 7.7 L Liver Function 10/10/24 Range/Units 05:59 Total Bilirubin 0.9 (0.2-1.3) mg/dL AST 41 H (14-36) U/L ALT 20 (6-35) U/L Alkaline Phosphatase 37 L (38-126) U/L Albumin 3.9 (3.5-5.1) g/dL
--- NOTE | 2024-10-10 19:16 | PC.NURSE ---
On 10/10/24, the NURSE MIDWIFE, Saranya Dominguez, provided care and completed [facility] documentation on this patient. I have reviewed the NURSE MIDWIFE's documentation and agree with the findings.
[2024-10-10] MEDS: KETOROLAC 15 MG/ML VIAL (*BKC) IV PUSH (20:25)
[2024-10-10 20:55] VITALS: PULSE 72; RESP 20; O2SAT 96
[2024-10-10 21:32] VITALS: BP 117/75; PULSE 72; RESP 20; TEMP 36.7; O2SAT 98
[2024-10-10 22:00] VITALS: O2SAT 96
[2024-10-10] MEDS: ACETAMINOPHEN 650 MG SUPPOSITORY RECTAL (23:12)
[2024-10-11] MEDS: KETOROLAC 15 MG/ML VIAL (*BKC) IV PUSH (01:47)
[2024-10-11] MEDS: AMPICILLIN SODIUM 2 GM in SODIUM CHLORIDE 0.9% IV 100 ML 200 ML IVPB ×3 (01:48→14:14)
[2024-10-11] MEDS: cefTRIAXone 2 GM in SODIUM CHLORIDE 0.9% IV 100 ML 200 ML IVPB ×2 (03:18→16:24)
[2024-10-11] MEDS: ACYCLOVIR SODIUM IVPB 750 MG in DEXTROSE 5% IN WATER 250 ML 250 MG IVPB ×2 (03:19→14:23)
[2024-10-11 05:31] LABS: Hematocrit 29.9 % (37.0-47.0); Hemoglobin 8.7 g/dL (12.0-15.0); Immature Granulocyte Percent A 0.6 % (0-0.5); Immature Platelet Fraction Pct 2.6 % (0.9-11.2); Lymphocytes Absolute Auto 0.95 K/mm3 (0.9-3.2); Mean Corpuscular HGB Conc 29.1 g/dl (32-36); Mean Corpuscular Hemoglobin 31.6 pg (26-34); Mean Corpuscular Volume 108.7 fl (80-100); Nucleated Red Blood Cells Absolute Auto 0.000 K/mm3 (0.0-0.012); Nucleated Red Blood Cells Perc 0.0 % (0.0-0.2); Platelet Count Result 110 k/mm3 (150-375); Red Blood Count 2.75 M/mm3 (4.2-5.4); White Blood Count 6.6 K/mm3 (4.5-10.0)
[2024-10-11 05:45] LABS: Alanine Aminotransferase 22 U/L (6-35); Albumin Level 3.9 g/dL (3.5-5.1); Alkaline Phosphatase 40 U/L (38-126); Anion Gap 15 mmol/L (4-12); Aspartate Amino Transferase 34 U/L (14-36); Bilirubin,Total 0.9 mg/dL (0.2-1.3); Blood Urea Nitrogen 32 mg/dL (7-17); Calcium 7.6 mg/dL (8.4-10.2); Carbon Dioxide 15 mmol/L (22-30); Chloride 105 mmol/L (98-107); Estimated CRCL calculation 42 ml/min; Estimated Glomerular Filt Rate 50; Glucose 184 mg/dL (65-110); Magnesium 1.9 mg/dL (1.6-2.3); Potassium 3.5 mmol/L (3.4-5.0); Sodium 135 mmol/L (137-145); Total Protein 7.4 g/dL (6.3-8.2)
[2024-10-11 05:50] VITALS: BP 145/99; PULSE 70; RESP 20; TEMP 36.7; O2SAT 98
[2024-10-11 05:51] LABS: INR 2.1; Prothrombin Time 23.1 Seconds (11.1-14.7)
[2024-10-11 05:52] LABS: Partial Thromboplastin Time 33.8 Seconds (22.3-36.8)
[2024-10-11 06:53] LABS: Burr Cells 1+; Hypochromasia 1+; Macrocytosis 1+ (NORMAL); Ovalocytes 1+; Schistocytes None Seen
--- NOTE | 2024-10-11 09:09 | PCNEURO ---
Entered room to perform EEG. Pt is groaning, flailing arms and head around. When touching patient's head and trying to move it to one side, she fights me and yells louder. Will trying again in afternoon.
[2024-10-11] MEDS: LORazepam INJ (*CRX) 2 MG/ML VIAL 0.5 MG IV PUSH (10:30)
[2024-10-11 11:10] VITALS: BMI 29.3
[2024-10-11 14:00] VITALS: BP 121/105; PULSE 79; RESP 20; TEMP 36.6; O2SAT 100
[2024-10-11] MEDS: ISOSORBIDE DINITRATE 10 MG TABLET PO (14:25)
[2024-10-11] MEDS: CALCIUM/VITAMIN D 500 MG/5 MCG (200 I.U.) TABLET PO (14:25)
[2024-10-11] MEDS: THERAPEUTIC MULTIVITAMINS/MINERALS TAB (*BKC) 1 TABLET PO (14:25)
[2024-10-11 14:26] VITALS: PULSE 79
[2024-10-11] MEDS: PANTOPRAZOLE 40 MG TABLET PO (14:26)
[2024-10-11] MEDS: SODIUM BICARBONATE TAB 650 MG TABLET PO (14:26)
[2024-10-11] MEDS: CYANOCOBALAMIN 1,000 MCG TABLET 1000 MCG PO (14:26)
[2024-10-11] MEDS: FUROSEMIDE 40 MG TABLET PO (14:26)
[2024-10-11] MEDS: GABAPENTIN 300 MG CAPSULE PO (14:26)
[2024-10-11] MEDS: LORATADINE 10 MG TABLET PO (14:26)
--- NOTE | 2024-10-11 14:46 | P.PNIM_ITS ---
Progress Note: A&P Assessment and Plan (1) Acute alteration in mental status: Code(s): R41.82 - Altered mental status, unspecified Status: Acute Assessment and Plan: Patient presented with altered mental status, responding only to pain stimulus when EMS arrived at the [place]. Was found to be hypotensive and brought to the ED CT brain showing no acute intracranial process. Patient initially became more awake, alert but now more altered again. Could be related to Tramadol but this is a home med and now on hold without improvement. Repeat CT brain no acute findings. B12 level okay. PCT level low. TSH elevated but FT4 normal. BCx growing Staph Epi that is probably a contaminant. Clinical consistent with dystonic reaction but not on antipsychotic meds. Neuro consulted. LP ordered but INR too high. Changed Abx to cover for meningitis and viral encephilitis. NGT placed for nutrition. Add Vitamin K to improve INR. LP tomorrow. (2) Septic shock: Code(s): A41.9 - Sepsis, unspecified organism; R65.21 - Severe sepsis with septic shock Status: Acute Assessment and Plan: Patient presented from long term with altered mental status, hypotension refractory to IV fluid bolus, right femoral central line was inserted and patient started on Levophed 10/05 Received fluid bolus and then maintenance IV fluids as well as albumin for intravascular volume expansion Lactic was within normal limits, procalcitonin was 0.2 Able to wean off Levophed to maintain an appropriate MAP > 65 BCx and UCx collected and cefepime started. MRSA nares is negative UCx grew 10-25K CFU of mixed urogential yulia BCx with 1/4 bottles positive for Staph Epi Sepsis has resolved and shock has resolved. Abx adjusted (3) Urinary tract infection: Code(s): N39.0 - Urinary tract infection, site not specified Status: Acute Assessment and Plan: UA was positive for UTI, cultures were obtained UCx showing 10-25K colonies of mixed urogenital yulia She has a chronic Kaplan. Urosepsis still suspected as possible source. (4) CKD (chronic kidney disease) stage 3, GFR 30-59 ml/min: Code(s): N18.30 - Chronic kidney disease, stage 3 unspecified Status: Acute Assessment and Plan: Patient with chronic kidney injury Cr 1.2 on admission and within her baseline. She was adequately fluid-resuscitated Cr today at 1.08. Continue to monitor urine output, renal function and electrolytes (5) Combined systolic and diastolic congestive heart failure: Qualifiers: Heart failure chronicity: acute on chronic Qualified Code(s): I50.43 - Acute on chronic combined systolic (congestive) and diastolic (congestive) heart failure Code(s): I50.40 - Unspecified combined systolic (congestive) and diastolic (congestive) heart failure Status: Acute Assessment and Plan: Echo (07/08/24) showing EF 25-30%, hypokinesis of anteroseptum. LV chamber mildly enlarged, grade 2 diastolic dysfunction. Mild-mod , mod pHTN with RVSP of 52 mmHg Restarted home meds of Carvedilol, Lasix, Hydralazine, Imdur and Atorvastatin. She has not been getting this meds so will adjust dosing by holding Lasix and hydralazine. Monitor (6) HTN (hypertension): Qualifiers: Hypertension type: unspecified Qualified Code(s): I10 - Essential (primary) hypertension Code(s): I10 - Essential (primary) hypertension Status: Chronic Assessment and Plan: Restarted meds on 10/08 but not taking due to AMS BP elevated at times. Add back Coreg and Imdur. Monitor and adjust meds (7) S/P AKA (above knee amputation) bilateral: Code(s): Z89.611 - Acquired absence of right leg above knee; Z89.612 - Acquired absence of left leg above knee Status: Acute Assessment and Plan: Likely related to diabetes and peripheral vascular disease, this is a chronic condition (8) GERD (gastroesophageal reflux disease): Code(s): K21.9 - Gastro-esophageal reflux disease without esophagitis Status: Acute Assessment and Plan: Protonix Plan Breast mass - CT from June showing right anterior chest wall seroma versus breast implant Abdominal mass - seroma in the anterior abdominal wall with wall calcifications. Code status - modified DVT prophylaxis - Heparin; changed to SCDs. Add phytonadione once. Subjective Date/time seen: 10/11/24 14:46 Interval history: 69yo female with extensive medical history including recurrent C diff colitis, chronic indwelling Kaplan catheter with recurrent UTIs, dementia (baseline A&O x2) residing at nursing facility, essential hypertension, peripheral vascular disease with bilateral AKA, combined systolic-diastolic heart failure, insulin- dependent diabetes mellitus, hypothyroidism, GERD, CKD stage 3, anemia андрей presents to [facility] ER on 10/05/2024 as she was noted to be responsive to painful stimuli only. Her last known normal was around noon on the day of admission. Patient unable to provide hx. Review of Systems Review of Systems: ROS unobtainable: Yes unobtainable due to mental status Exam Narrative: AF 98.1 145/99 79 20 98% ra Gen - NARD Chest - Lungs clear anteriorly. Large firm mass in the right upper breast CV - RRR S1/S2 Abd - Soft, obese with large central firm mass that is well demarcated. - Kaplan secured draining clear yellow urine Ext - bilateral AKA Neuro - Does not respond to questions. Chewing and grimacing frequently with flailing movement of UE. Psych - unable to assess. Skin - Warm and dry Objective Data Vital Signs Vital Signs: Vital Signs - 24 hr 10/10/24 20:55 10/10/24 21:32 10/10/24 22:00 Temperature 98.1 F Pulse Rate 72 72 Respiratory Rate 20 20 Blood Pressure 117/75 Pulse Oximetry 96 98 96 Oxygen Delivery Room Air Room Air Fraction of Inspired Oxygen 21 10/11/24 05:50 10/11/24 14:26 Temperature 98.1 F Pulse Rate 70 79 Respiratory Rate 20 Blood Pressure 145/99 H Pulse Oximetry 98 Oxygen Delivery Fraction of Inspired Oxygen Intake/Output Intake/Output: Intake & Output 10/08/24 10/09/24 10/10/24 10/11/24 23:59 23:59 23:59 23:59 Intake Total 580 1150 3243 565 Output Total 600 700 300 550 Balance -20 450 2943 15 Meds/Results Medications: Active Medications Generic Name Dose Route Start Last Admin Trade Name Freq PRN Reason Stop Dose Admin Acetaminophen 650 mg 10/11/24 14:44 Acetaminophen Elixir 325 Mg/10.15 Ml Udc FEED TUBE Q6H PRN Mild Pain (1-3) or Fever Atorvastatin Calcium 40 mg 10/11/24 21:00 Atorvastatin 40 Mg Tablet FEED TUBE HS KASIE Bisacodyl 10 mg 10/08/24 14:37 Bisacodyl 10 Mg Suppository RECTAL DAILY PRN constipation Calcium Carbonate 500 mg 10/12/24 09:00 Calcium/Vitamin D 500 Mg/5 Mcg (200 I.U.) Tablet FEED TUBE QAM KASIE Carvedilol 12.5 mg 10/11/24 21:00 Carvedilol 12.5 Mg Tablet FEED TUBE Q12HR KASIE Cyanocobalamin 1,000 mcg 10/12/24 09:00 Cyanocobalamin 1,000 Mcg Tablet FEED TUBE DAILY [facility] Dextrose 12.5 gm 10/07/24 07:24 Dextrose 50% 25 Gm/50 Ml Syringe IV PUSH PRN PRN Hypoglycemia Protocol Ferrous Sulfate 325 mg 10/11/24 17:00 Ferrous Sulfate Liquid 325 Mg/7.4 Ml Elixir FEED TUBE BID KASIE Furosemide 40 mg 10/12/24 09:00 Furosemide 40 Mg Tablet FEED TUBE DAILY KASIE Gabapentin 300 mg 10/11/24 17:00 Gabapentin 300 Mg Capsule FEED TUBE TID KASIE Glucagon 1 mg 10/07/24 07:24 Glucagon For Inj 1 Mg Vial IM PRN PRN Hypoglycemia Protocol Glucose 15 gm 10/07/24 07:24 Glucose Oral Gel 15 Gm Of Glucse In 37.5 Gm Tube PO PRN PRN Hypoglycemia Protocol Heparin Sodium (Porcine) 5,000 units 10/06/24 06:00 10/10/24 05:32 Heparin Sodium 5,000 Units/Ml Vial SUB-Q 5,000 units Q8HR KASIE Administration Hydralazine HCl 10 mg 10/11/24 17:00 Hydralazine 10 Mg Tablet FEED TUBE TID KASIE Dextrose 1,000 mls @ 100 mls/hr 10/07/24 07:24 Dextrose 5% 1,000 Ml IVPB PRN PRN Hypoglycemia Protocol Dextrose/Sodium Chloride 1,000 mls @ 60 mls/hr 10/09/24 14:10 10/10/24 23:13 Dextrose 5% Sodium Chloride 0.9% IV CONT 60 mls/hr .[id number] KASIE Administration Ceftriaxone Sodium 2 gm/ 100 mls @ 200 mls/hr 10/10/24 16:00 10/11/24 03:48 Sodium Chloride IVPB Infused Q12H KASIE Infusion Acyclovir Sodium 750 mg/ 265 mls @ 250 mls/hr 10/10/24 15:00 10/11/24 14:23 Dextrose IVPB 250 mls/hr Q12H KASIE Administration Ampicillin Sodium 2 gm/ Sodium 100 mls @ 200 mls/hr 10/10/24 14:00 10/11/24 14:14 Chloride IVPB 200 mls/hr Q6H KASIE Administration Vancomycin HCl 1,500 mg in 500 mls @ 250 mls/hr 10/10/24 15:00 10/10/24 19:45 Vancomycin 1,500 Mg/Ns 500 Ml IVPB Infused Q24H KASIE Infusion Insulin Aspart 1 - 3 units 10/07/24 21:00 10/10/24 20:30 Insulin Aspart (*Bkc) 100 Units/Ml SUB-Q Not Given HS [facility] Protocol Insulin Aspart 3 - 6 units 10/07/24 08:00 10/11/24 11:40 Insulin Aspart (*Bkc) 100 Units/Ml SUB-Q Not Given TIDWM [facility] Protocol Isosorbide Dinitrate 10 mg 10/11/24 17:00 Isosorbide Dinitrate 10 Mg Tablet FEED TUBE TID KASIE Levothyroxine Sodium 100 mcg 10/12/24 06:30 Levothyroxine Sodium 100 Mcg Tablet FEED TUBE DAILY@0630 KASIE Loratadine 10 mg 10/12/24 09:00 Loratadine 10 Mg Tablet FEED TUBE DAILY KASIE Magnesium Citrate 150 ml 10/11/24 14:37 Magnesium Citrate 300 Ml Btl FEED TUBE DAILY PRN Constipation Magnesium Hydroxide 30 ml 10/11/24 14:36 Magnesium Hydroxide Susp 30 Ml Udc FEED TUBE HS PRN IF NO BM IN 3 DAYS Miscellaneous Information 1 each 10/11/24 14:21 Pharmacist Communication Order XX 10/11/24 14:22 ONCE ONE Multivitamins/Minerals 15 ml 10/12/24 09:00 Multivit W/ Iron, Minerals 15 Ml Liquid (*Bkc) FEED TUBE QAM KASIE Ondansetron HCl 4 mg 10/05/24 20:41 Ondansetron Inj 4 Mg/2 Ml Vial IV PUSH Q4H PRN Nausea Pantoprazole Sodium 40 mg 10/09/24 09:00 10/11/24 14:26 Pantoprazole 40 Mg Tablet PO 40 mg DAILY KASIE Administration Polyethylene Glycol 17 gm 10/11/24 14:41 Polyethylene Glycol 3350 17 Gm Powd.Pack FEED TUBE QAM PRN Constipation Potassium Chloride 10 meq 10/09/24 09:00 10/10/24 09:00 Potassium Chloride 10 Meq Er Tablet PO Not Given DAILY KASIE Sodium Bicarbonate 650 mg 10/11/24 17:00 Sodium Bicarbonate Tab 650 Mg Tablet FEED TUBE BID KASIE Tramadol HCl 50 mg 10/11/24 14:42 Tramadol Hcl (*Crx) 50 Mg Tablet FEED TUBE Q8H PRN pain 4-6 Radiology Results: ITS Impressions Head CT 10/09/24 14:49 IMPRESSION: 1. No acute intracranial process. 2. Age-related changes the brain including mild to moderate diffuse volume loss and mild to moderate scattered white matter hypoattenuation consistent with chronic small vessel ischemic disease. Labs Labs: Laboratory Results - last 24 hr 10/10/24 10/10/24 10/10/24 15:00 16:23 20:24 WBC RBC Hgb Hct MCV MCH MCHC RDW Plt Count MPV Immature Gran % (Auto) Neut % (Auto) Lymph % (Auto) [place] % (Auto) Eos % (Auto) Baso % (Auto) Lymph # (Auto) [place] # (Auto) Eos # (Auto) Baso # (Auto) Abs Immat Gran (auto) Absolute Neuts (auto) Absolute Nucleated RBC Band Neutrophils % Nucleated RBC % Platelet Estimate % Immature Plt Fraction Hypochromasia Macrocytosis Ovalocytes Mally Cells Schistocytes PT INR APTT Puncture Site Right radial ABG pH 7.413 ABG pCO2 29.5 L ABG pO2 48.0 L* ABG PO2/FiO2 Ratio 2.29 ABG HCO3 18.4 L ABG O2 Saturation 85.0 L* ABG O2 Content 11.4 L ABG Base Excess -5.3 A-a Gradient 66.4 Oxyhemoglobin 80.8 L* Total Hemoglobin 10.0 L O2 Delivery Device Not Reportable O2 Liters/Min Not Reportable FiO2 21 Sodium Potassium Chloride Carbon Dioxide Anion Gap BUN Creatinine Estim Creat Clear Calc Estimated GFR Glucose POC Capillary Glucose 153 H 169 H Calcium Phosphorus Magnesium Total Bilirubin AST ALT Alkaline Phosphatase Total Protein Albumin Vitamin D 25-Hydroxy 10/11/24 10/11/24 10/11/24 05:21 07:54 11:40 WBC 6.6 RBC 2.75 L Hgb 8.7 L Hct 29.9 L MCV 108.7 H D MCH 31.6 MCHC 29.1 L RDW 18.4 H Plt Count 110 L MPV 11.0 H Immature Gran % (Auto) 0.6 H Neut % (Auto) 73.9 H Lymph % (Auto) 14.4 L [place] % (Auto) 8.8 H Eos % (Auto) 1.7 Baso % (Auto) 0.6 Lymph # (Auto) 0.95 [place] # (Auto) 0.6 Eos # (Auto) 0.1 Baso # (Auto) 0.0 Abs Immat Gran (auto) 0.04 H Absolute Neuts (auto) 4.9 Absolute Nucleated RBC 0.000 Band Neutrophils % Not Reportable Nucleated RBC % 0.0 Platelet Estimate Decreased % Immature Plt Fraction 2.6 Hypochromasia 1+ Macrocytosis 1+ Ovalocytes 1+ [place] Cells 1+ Schistocytes None seen PT 23.1 H INR 2.1 APTT 33.8 Puncture Site ABG pH ABG pCO2 ABG pO2 ABG PO2/FiO2 Ratio ABG HCO3 ABG O2 Saturation ABG O2 Content ABG Base Excess A-a Gradient Oxyhemoglobin Total Hemoglobin O2 Delivery Device O2 Liters/Min FiO2 Sodium 135 L Potassium 3.5 Chloride 105 Carbon Dioxide 15 L Anion Gap 15 H BUN 32 H Creatinine 1.09 H Estim Creat Clear Calc 42 Estimated GFR 50 L Glucose 184 H POC Capillary Glucose 162 H 162 H Calcium 7.6 L Phosphorus 2.4 L Magnesium 1.9 Total Bilirubin 0.9 AST 34 ALT 22 Alkaline Phosphatase 40 Total Protein 7.4 Albumin 3.9 Vitamin D 25-Hydroxy 57.6
--- NOTE | 2024-10-11 15:48 | PCNEURO ---
Entered room to check on patient in the afternoon. Pt was asleep. Family informed me that she was given Ativan which would suppress the EEG study. Contacted neurologist, will attempt Monday if able.
[2024-10-11] MEDS: PHYTONADIONE INJ 10 MG/ML AMP SUB-Q (16:23)
[2024-10-11] MEDS: POTASSIUM/PHOSPHORUS/SODIUM 1.5 GM PACKET 1 PACKET FEED TUBE (16:32)
[2024-10-11] MEDS: FERROUS SULFATE LIQUID 325 MG/7.4 ML ELIXIR FEED TUBE (16:32)
[2024-10-11] MEDS: INSULIN ASPART (*BKC) 100 UNITS/ML SUB-Q (16:47)
[2024-10-11] MEDS: ISOSORBIDE DINITRATE 10 MG TABLET FEED TUBE (18:34)
[2024-10-11] MEDS: GABAPENTIN 300 MG CAPSULE FEED TUBE (18:34)
[2024-10-11] MEDS: SODIUM BICARBONATE TAB 650 MG TABLET FEED TUBE (18:34)
[2024-10-11] MEDS: DEXTROSE 5%/0.9% SOD CHL 1,000 ML 60 ML IV CONT (20:33)
[2024-10-11] MEDS: AMPICILLIN SODIUM 2 GM in SODIUM CHLORIDE 0.9% IV 100 ML IVPB (20:34)
[2024-10-11] MEDS: ATORVASTATIN 40 MG TABLET FEED TUBE (20:38)
[2024-10-11 22:00] VITALS: BP 91/76; PULSE 62; RESP 17; TEMP 36.7; O2SAT 100
[2024-10-11 23:00] VITALS: PULSE 79; RESP 20; O2SAT 100
[2024-10-12] MEDS: ACYCLOVIR SODIUM IVPB 750 MG in DEXTROSE 5% IN WATER 250 ML 250 MG IVPB ×2 (02:25→16:29)
[2024-10-12] MEDS: AMPICILLIN SODIUM 2 GM in SODIUM CHLORIDE 0.9% IV 100 ML IVPB (02:39)
[2024-10-12] MEDS: cefTRIAXone 2 GM in SODIUM CHLORIDE 0.9% IV 100 ML 200 ML IVPB (03:59)
[2024-10-12] MEDS: VANCOMYCIN HCL 1,000 MG in SODIUM CHLORIDE 0.9% IV 250 ML 250 MG IVPB (05:31)
[2024-10-12] MEDS: LEVOTHYROXINE SODIUM 100 MCG TABLET FEED TUBE (05:32)
[2024-10-12 05:52] VITALS: BP 127/71; PULSE 68; RESP 14; TEMP 36.6; O2SAT 100
[2024-10-12 06:28] LABS: Hematocrit 26.9 % (37.0-47.0); Hemoglobin 8.6 g/dL (12.0-15.0); Immature Granulocyte Percent A 0.4 % (0-0.5); Lymphocytes Absolute Auto 1.05 K/mm3 (0.9-3.2); Mean Corpuscular HGB Conc 32.0 g/dl (32-36); Mean Corpuscular Hemoglobin 31.6 pg (26-34); Mean Corpuscular Volume 98.9 fl (80-100); Nucleated Red Blood Cells Absolute Auto 0.020 K/mm3 (0.0-0.012); Nucleated Red Blood Cells Perc 0.4 % (0.0-0.2); Platelet Count Result 134 k/mm3 (150-375); Red Blood Count 2.72 M/mm3 (4.2-5.4); White Blood Count 5.5 K/mm3 (4.5-10.0)
[2024-10-12 06:40] LABS: INR 1.9; Prothrombin Time 21.8 Seconds (11.1-14.7)
[2024-10-12 06:41] LABS: Partial Thromboplastin Time 36.2 Seconds (22.3-36.8)
[2024-10-12 07:01] LABS: Alanine Aminotransferase 19 U/L (6-35); Albumin Level 3.3 g/dL (3.5-5.1); Alkaline Phosphatase 39 U/L (38-126); Anion Gap 10 mmol/L (4-12); Aspartate Amino Transferase 33 U/L (14-36); Bilirubin,Total 0.6 mg/dL (0.2-1.3); Blood Urea Nitrogen 30 mg/dL (7-17); Calcium 7.4 mg/dL (8.4-10.2); Carbon Dioxide 22 mmol/L (22-30); Chloride 109 mmol/L (98-107); Estimated CRCL calculation 42 ml/min; Estimated Glomerular Filt Rate 50; Glucose 127 mg/dL (65-110); Magnesium 1.9 mg/dL (1.6-2.3); Potassium 2.9 mmol/L (3.4-5.0); Sodium 141 mmol/L (137-145); Total Protein 6.9 g/dL (6.3-8.2)
--- NOTE | 2024-10-12 09:30 | PC.NURSE ---
Dobhoff clogged and unable to flush or give morning meds. Attempts to open unsuccessful. Provider notified.
[2024-10-12] MEDS: ISOSORBIDE DINITRATE 10 MG TABLET FEED TUBE ×2 (09:42→14:59)
[2024-10-12] MEDS: GABAPENTIN 300 MG CAPSULE FEED TUBE ×2 (09:42→14:59)
[2024-10-12] MEDS: POTASSIUM CHLORIDE 20 MEQ PACKET (FOR LIQUID) 40 MEQ FEED TUBE (09:42)
[2024-10-12] MEDS: FERROUS SULFATE LIQUID 325 MG/7.4 ML ELIXIR FEED TUBE (09:44)
[2024-10-12] MEDS: AMPICILLIN SODIUM 2 GM in SODIUM CHLORIDE 0.9% IV 100 ML 200 ML IVPB ×2 (09:45→15:00)
[2024-10-12] MEDS: POTASSIUM/PHOSPHORUS/SODIUM 1.5 GM PACKET 1 PACKET FEED TUBE (09:48)
--- NOTE | 2024-10-12 12:49 | PM.IMPN ---
Progress Note: A&P Assessment and Plan (1) Acute alteration in mental status: Code(s): R41.82 - Altered mental status, unspecified Status: Acute Assessment and Plan: Patient presented with altered mental status, responding only to pain stimulus when EMS arrived at the ID. Also hypotensive CT brain showing no acute intracranial process. Patient initially became more awake, alert but then altered again. Could be related to Tramadol but this is a home med and now on hold without improvement. Repeat CT brain no acute findings. B12 level okay. PCT level low. TSH elevated but FT4 normal. BCx growing Staph Epi that is probably a contaminant. Neuro consulted. LP ordered but INR too high. Changed Abx to cover for meningitis and viral encephilitis. NGT placed for nutrition. She is much better today. Related to abx/anti-viral? Will check bedside swallow. Might be able to remove NGT (2) Septic shock: Code(s): A41.9 - Sepsis, unspecified organism; R65.21 - Severe sepsis with septic shock Status: Acute Assessment and Plan: [facility] status, hypotension refractory to IV fluid bolus, right femoral central line was inserted and patient started on Levophed 10/05 Received fluid bolus and then maintenance IV fluids as well as albumin for intravascular volume expansion Lactic was within normal limits, procalcitonin was 0.2 Able to wean off Levophed to maintain an appropriate MAP > 65 BCx and UCx collected and cefepime started. MRSA nasal swab was negative UCx grew 10-25K CFU of mixed urogential yulia BCx with 1/4 bottles positive for Staph Epi Sepsis has resolved and shock has resolved. Abx adjusted as above (3) Urinary tract infection: Code(s): N39.0 - Urinary tract infection, site not specified Status: Acute Assessment and Plan: UA was positive for UTI, cultures were obtained UCx showing 10-25K colonies of mixed urogenital yulia She has a chronic Kaplan. Urosepsis still suspected as possible source. (4) CKD (chronic kidney disease) stage 3, GFR 30-59 ml/min: Code(s): N18.30 - Chronic kidney disease, stage 3 unspecified Status: Acute Assessment and Plan: Patient with chronic kidney injury Cr 1.2 on admission and within her baseline. She was adequately fluid-resuscitated Cr today at 1.1 Continue to monitor urine output, renal function and electrolytes (5) Combined systolic and diastolic congestive heart failure: Qualifiers: Heart failure chronicity: acute on chronic Qualified Code(s): I50.43 - Acute on chronic combined systolic (congestive) and diastolic (congestive) heart failure Code(s): I50.40 - Unspecified combined systolic (congestive) and diastolic (congestive) heart failure Status: Acute Assessment and Plan: Echo (07/08/24) showing EF 25-30%, hypokinesis of anteroseptum. LV chamber mildly enlarged, grade 2 diastolic dysfunction. Mild-mod , mod pHTN with RVSP of 52 mmHg Restarted home meds of Carvedilol, Imdur and Atorvastatin. Lasix and hydralazine on hold. Resume Lasix, Hydralazine when able Monitor (6) HTN (hypertension): Qualifiers: Hypertension type: unspecified Qualified Code(s): I10 - Essential (primary) hypertension Code(s): I10 - Essential (primary) hypertension Status: Chronic Assessment and Plan: Restarted meds on 10/08 but not taking due to AMS. Added back Coreg and Imdur 10/11. Patient's blood pressure was reviewed on 10/12 Blood pressure remains well controlled. Will continue to monitor and adjust meds as needed (7) S/P AKA (above knee amputation) bilateral: Code(s): Z89.611 - Acquired absence of right leg above knee; Z89.612 - Acquired absence of left leg above knee Status: Acute Assessment and Plan: Likely related to diabetes and peripheral vascular disease, this is a chronic condition (8) GERD (gastroesophageal reflux disease): Code(s): K21.9 - Gastro-esophageal reflux disease without esophagitis Status: Acute Assessment and Plan: Protonix Plan Breast mass - CT from June showing right anterior chest wall seroma versus breast implant Abdominal mass - seroma in the anterior abdominal wall with wall calcifications. Code status - modified DVT prophylaxis - Heparin on hold. no SCDs since bilateral AKA Subjective Date/time seen: 10/12/24 12:49 Interval history: 69yo female with extensive medical history including recurrent C diff colitis, chronic indwelling Kaplan catheter with recurrent UTIs, dementia (baseline A&O x2) residing at nursing facility, essential hypertension, peripheral vascular disease with bilateral AKA, combined systolic-diastolic heart failure, insulin-dependent diabetes mellitus, hypothyroidism, GERD, CKD stage 3, anemia андрей presents to [facility] on 10/05/2024 as she was noted to be responsive to painful stimuli only. Her last known normal was around noon on the day of admission. Patient more awake and alert now. She is answering questions and in mostly oriented. She is feeling 'worse' because 'I got a cold'. +cough. Hx is unreliable. Review of Systems Review of Systems: ROS unobtainable: Yes unobtainable due to mental status Exam Narrative: AF 97.9 127/71 68 14 100% ra Gen - NARD Chest - Lungs clear anteriorly and in flank. Large firm mass in the right upper breast CV - RRR S1/S2 Abd - Soft, obese with large central firm mass that is well demarcated. - Kaplan secured draining clear yellow urine Ext - bilateral AKA Neuro - awake, alert and oriented x2. She perseverates at times. 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 Psych - in good spirits Skin - Warm and dry. multiple linear abrasions right abd wall with evidence of bleeding Objective Data Vital Signs Vital Signs: Vital Signs - 24 hr 10/11/24 14:00 10/11/24 14:26 10/11/24 22:00 Temperature 97.8 F 98.1 F Pulse Rate 79 79 62 Respiratory Rate 20 17 Blood Pressure 121/105 H 91/76 L Pulse Oximetry 100 100 Oxygen Delivery Fraction of Inspired Oxygen 10/11/24 23:00 10/12/24 05:52 Temperature 97.9 F Pulse Rate 79 68 Respiratory Rate 20 14 Blood Pressure 127/71 Pulse Oximetry 100 100 Oxygen Delivery Room Air Fraction of Inspired Oxygen 21 Intake/Output Intake/Output: Intake & Output 10/09/24 10/10/24 10/11/24 10/12/24 23:59 23:59 23:59 23:59 Intake Total 1150 3243 2487 722 Output Total 700 300 800 300 Balance 450 5033 8738 422 Meds/Results Medications: Active Medications Generic Name Dose Route Start Last Admin Trade Name Freq PRN Reason Stop Dose Admin Acetaminophen 650 mg 10/11/24 14:44 Acetaminophen Elixir 325 Mg/10.15 Ml Udc FEED TUBE Q6H PRN Mild Pain (1-3) or Fever Atorvastatin Calcium 40 mg 10/11/24 21:00 10/11/24 20:38 Atorvastatin 40 Mg Tablet FEED TUBE 40 mg HS KASIE Administration Bisacodyl 10 mg 10/08/24 14:37 Bisacodyl 10 Mg Suppository RECTAL DAILY PRN constipation Calcium Carbonate 500 mg 10/12/24 09:00 10/12/24 12:32 Calcium/Vitamin D 500 Mg/5 Mcg (200 I.U.) Tablet FEED TUBE Not Given QAM KASIE Carvedilol 12.5 mg 10/11/24 21:00 10/12/24 09:41 Carvedilol 12.5 Mg Tablet FEED TUBE 12.5 mg Q12HR KASIE Administration Cyanocobalamin 1,000 mcg 10/12/24 09:00 10/12/24 12:33 Cyanocobalamin 1,000 Mcg Tablet FEED TUBE Not Given DAILY KASIE Dextrose 12.5 gm 10/07/24 07:24 Dextrose 50% 25 Gm/50 Ml Syringe IV PUSH PRN PRN Hypoglycemia Protocol Ferrous Sulfate 325 mg 10/11/24 17:00 10/12/24 09:44 Ferrous Sulfate Liquid 325 Mg/7.4 Ml Elixir FEED TUBE 325 mg BID KASIE Administration Furosemide 40 mg 10/12/24 09:00 Furosemide 40 Mg Tablet FEED TUBE DAILY KASIE Gabapentin 300 mg 10/11/24 17:00 10/12/24 09:42 Gabapentin 300 Mg Capsule FEED TUBE 300 mg TID KASIE Administration Glucagon 1 mg 10/07/24 07:24 Glucagon For Inj 1 Mg Vial IM PRN PRN Hypoglycemia Protocol Glucose 15 gm 10/07/24 07:24 Glucose Oral Gel 15 Gm Of Glucse In 37.5 Gm Tube PO PRN PRN Hypoglycemia Protocol Heparin Sodium (Porcine) 5,000 units 10/06/24 06:00 10/10/24 05:32 Heparin Sodium 5,000 Units/Ml Vial SUB-Q 5,000 units Q8HR KASIE Administration Hydralazine HCl 10 mg 10/11/24 17:00 Hydralazine 10 Mg Tablet FEED TUBE TID KASIE Dextrose 1,000 mls @ 100 mls/hr 10/07/24 07:24 Dextrose 5% 1,000 Ml IVPB PRN PRN Hypoglycemia Protocol Ceftriaxone Sodium 2 gm/ 100 mls @ 200 mls/hr 10/10/24 16:00 10/12/24 04:29 Sodium Chloride IVPB Infused Q12H [facility] Infusion Acyclovir Sodium 750 mg/ 265 mls @ 250 mls/hr 10/10/24 15:00 10/12/24 04:00 Dextrose IVPB Infused Q12H [facility] Infusion Ampicillin Sodium 2 gm/ Sodium 100 mls @ 200 mls/hr 10/10/24 14:00 10/12/24 09:45 Chloride IVPB 200 mls/hr Q6H KASIE Administration Vancomycin HCl 1,000 mg/ 250 mls @ 250 mls/hr 10/12/24 06:00 10/12/24 05:31 Sodium Chloride IVPB 250 mls/hr Q24H KASIE Administration Insulin Aspart 1 - 3 units 10/07/24 21:00 10/12/24 02:07 Insulin Aspart (*Bkc) 100 Units/Ml SUB-Q Not Given HS [facility] Protocol Insulin Aspart 3 - 6 units 10/07/24 08:00 10/12/24 12:34 Insulin Aspart (*Bkc) 100 Units/Ml SUB-Q Not Given TIDWM [facility] Protocol Isosorbide Dinitrate 10 mg 10/11/24 17:00 10/12/24 09:42 Isosorbide Dinitrate 10 Mg Tablet FEED TUBE 10 mg TID KASIE Administration Lansoprazole 30 mg 10/12/24 08:00 10/12/24 12:32 Lansoprazole Oral Susp 30 Mg/10 Ml Oral.Susp FEED TUBE Not Given DAILY@0800 [facility] Levothyroxine Sodium 100 mcg 10/12/24 06:30 10/12/24 05:32 Levothyroxine Sodium 100 Mcg Tablet FEED TUBE 100 mcg DAILY@0630 [facility] Administration Loratadine 10 mg 10/12/24 09:00 10/12/24 12:33 Loratadine 10 Mg Tablet FEED TUBE Not Given DAILY KASIE Magnesium Citrate 150 ml 10/11/24 14:37 Magnesium Citrate 300 Ml Btl FEED TUBE DAILY PRN Constipation Magnesium Hydroxide 30 ml 10/11/24 14:36 Magnesium Hydroxide Susp 30 Ml Udc FEED TUBE HS PRN IF NO BM IN 3 DAYS Multivitamins/Minerals 15 ml 10/12/24 09:00 10/12/24 12:33 Multivit W/ Iron, Minerals 15 Ml Liquid (*Bkc) FEED TUBE Not Given QAM [facility] Ondansetron HCl 4 mg 10/05/24 20:41 Ondansetron Inj 4 Mg/2 Ml Vial IV PUSH Q4H PRN Nausea Polyethylene Glycol 17 gm 10/11/24 14:41 Polyethylene Glycol 3350 17 Gm Powd.Pack FEED TUBE QAM PRN Constipation Potassium Chloride 10 meq 10/09/24 09:00 10/11/24 15:22 Potassium Chloride 10 Meq Er Tablet PO Not Given DAILY KASIE Sodium Bicarbonate 650 mg 10/11/24 17:00 10/11/24 18:34 Sodium Bicarbonate Tab 650 Mg Tablet FEED TUBE 650 mg BID KASIE Administration Radiology Results: ITS Impressions Head CT 10/09/24 14:49 IMPRESSION: 1. No acute intracranial process. 2. Age-related changes the brain including mild to moderate diffuse volume loss and mild to moderate scattered white matter hypoattenuation consistent with chronic small vessel ischemic disease. Labs Labs: Laboratory Results - last 24 hr 10/11/24 10/11/24 10/12/24 14:50 16:42 06:15 WBC 5.5 RBC 2.72 L Hgb 8.6 L Hct 26.9 L MCV 98.9 D MCH 31.6 MCHC 32.0 RDW 18.9 H Plt Count 134 L MPV 10.6 H Immature Gran % (Auto) 0.4 Neut % (Auto) 64.5 Lymph % (Auto) 19.2 [place] % (Auto) 9.7 H Eos % (Auto) 5.5 H Baso % (Auto) 0.7 Lymph # (Auto) 1.05 [place] # (Auto) 0.5 Eos # (Auto) 0.3 Baso # (Auto) 0.0 Abs Immat Gran (auto) 0.02 Absolute Neuts (auto) 3.5 Absolute Nucleated RBC 0.020 H Nucleated RBC % 0.4 H PT 21.8 H INR 1.9 APTT 36.2 Sodium 141 Potassium 2.9 L Chloride 109 H Carbon Dioxide 22 Anion Gap 10 BUN 30 H Creatinine 1.09 H Estim Creat Clear Calc 42 Estimated GFR 50 L Glucose 127 H POC Capillary Glucose 216 H Calcium 7.4 L Phosphorus 2.0 L Magnesium 1.9 Total Bilirubin 0.6 AST 33 ALT 19 Alkaline Phosphatase 39 Total Protein 6.9 Albumin 3.3 L Vancomycin Trough 25.9 H 10/12/24 10/12/24 07:51 11:30 WBC RBC Hgb Hct MCV MCH MCHC RDW Plt Count MPV Immature Gran % (Auto) Neut % (Auto) Lymph % (Auto) [place] % (Auto) Eos % (Auto) Baso % (Auto) Lymph # (Auto) [place] # (Auto) Eos # (Auto) Baso # (Auto) Abs Immat Gran (auto) Absolute Neuts (auto) Absolute Nucleated RBC Nucleated RBC % PT INR APTT Sodium Potassium Chloride Carbon Dioxide Anion Gap BUN Creatinine Estim Creat Clear Calc Estimated GFR Glucose POC Capillary Glucose 119 H 118 H Calcium Phosphorus Magnesium Total Bilirubin AST ALT Alkaline Phosphatase Total Protein Albumin Vancomycin Trough
[2024-10-12 14:09] VITALS: BP 105/77; PULSE 72; RESP 16; TEMP 36.6; O2SAT 100
--- NOTE | 2024-10-12 14:42 | PCSTNOTE ---
Please refer to the Bedside Swallow Evaluation in the EMR. Please note, silent aspiration cannot be ruled out at bedside. This pleasant 69 year old female patient was admitted to [facility] on 10/05 due to a UTI and Altered Mental Status. The patient has a past medical history significant for pneumonia and dementia. The patient is A&0X2 at baseline. The patient initially had a BSE on 10/06 with recommendations to initiate PO intake. However, changes in patient's medical status required placement of an NG tube. She is now more alert and a repeat BSE was ordered to determine if patient can resume PO intake and to ensure safety during oral intake. The patient has upper dentures but is edentulous on the lower portion of her mouth. Patient has not had lower dentures for ~a month. During the BSE, trials of thin liquid, puree, and solids were given via straw, spoon, and hand. Throughout all trials of different consistencies, the patient demonstrated no clinical signs of aspiration. The patients vocal quality remained clear after all trials and the patient did not cough/throat clear. Oral transit was timely for most consistencies some extra time was needed for solids due to only upper dentures available for mastication.. Oral residue was observed on solids for pieces of sandwich but was cleared with a sip of thin liquid. Laryngeal elevation was adequate and timely for all swallows. Please note that silent aspiration cannot be ruled out at bedside. Given the results of this assessment, it is recommended this pt receive a minced and moist diet Level 5 due to lack of lower dentition and thin liquids Level 0. It is additionally recommended that the pt follow these standard swallowing precautions: Small bites/sips, clear oral residue with sip of thin liquid, sit upright during meals, and alternate solids/liquids with 1:1 supervision during meals to aid in oral intake due to weak upper extremities.
[2024-10-12] MEDS: GABAPENTIN 300 MG CAPSULE BY MOUTH (17:48)
[2024-10-12] MEDS: ISOSORBIDE DINITRATE 10 MG TABLET BY MOUTH (17:48)
[2024-10-12] MEDS: FERROUS SULFATE LIQUID 325 MG/7.4 ML ELIXIR BY MOUTH (17:48)
[2024-10-12 20:51] VITALS: PULSE 69
[2024-10-12] MEDS: ACETAMINOPHEN 325 MG TABLET 650 MG BY MOUTH (20:51)
[2024-10-12] MEDS: ATORVASTATIN 40 MG TABLET BY MOUTH (20:51)
[2024-10-12 21:10] VITALS: BP 139/50; PULSE 73; RESP 30; TEMP 36.4; O2SAT 99
[2024-10-12] MEDS: INSULIN ASPART (*BKC) 100 UNITS/ML SUB-Q (21:18)
[2024-10-13] MEDS: LEVOTHYROXINE SODIUM 100 MCG TABLET BY MOUTH (05:12)
[2024-10-13 06:00] VITALS: BP 122/57; PULSE 61; RESP 26; TEMP 36.5; O2SAT 100
[2024-10-13 06:03] LABS: Hematocrit 27.4 % (37.0-47.0); Hemoglobin 8.5 g/dL (12.0-15.0); Immature Granulocyte Percent A 0.4 % (0-0.5); Lymphocytes Absolute Auto 1.21 K/mm3 (0.9-3.2); Mean Corpuscular HGB Conc 31.0 g/dl (32-36); Mean Corpuscular Hemoglobin 31.3 pg (26-34); Mean Corpuscular Volume 100.7 fl (80-100); Nucleated Red Blood Cells Absolute Auto 0.000 K/mm3 (0.0-0.012); Nucleated Red Blood Cells Perc 0.0 % (0.0-0.2); Platelet Count Result 135 k/mm3 (150-375); Red Blood Count 2.72 M/mm3 (4.2-5.4); White Blood Count 4.8 K/mm3 (4.5-10.0)
[2024-10-13 06:26] LABS: Alanine Aminotransferase 16 U/L (6-35); Albumin Level 3.4 g/dL (3.5-5.1); Alkaline Phosphatase 35 U/L (38-126); Anion Gap 7 mmol/L (4-12); Aspartate Amino Transferase 34 U/L (14-36); Bilirubin,Total 0.5 mg/dL (0.2-1.3); Blood Urea Nitrogen 25 mg/dL (7-17); Calcium 7.6 mg/dL (8.4-10.2); Carbon Dioxide 26 mmol/L (22-30); Chloride 104 mmol/L (98-107); Estimated CRCL calculation 44 ml/min; Estimated Glomerular Filt Rate 53; Glucose 121 mg/dL (65-110); Magnesium 1.9 mg/dL (1.6-2.3); Potassium 3.0 mmol/L (3.4-5.0); Sodium 137 mmol/L (137-145); Total Protein 6.8 g/dL (6.3-8.2)
[2024-10-13] MEDS: THERAPEUTIC MULTIVITAMINS/MINERALS TAB (*BKC) 1 TABLET PO (10:13)
[2024-10-13] MEDS: LORATADINE 10 MG TABLET BY MOUTH (10:13)
[2024-10-13] MEDS: GABAPENTIN 300 MG CAPSULE BY MOUTH (10:13)
[2024-10-13] MEDS: ISOSORBIDE DINITRATE 10 MG TABLET BY MOUTH ×3 (10:14→18:32)
[2024-10-13] MEDS: PANTOPRAZOLE 40 MG TABLET BY MOUTH (10:14)
[2024-10-13] MEDS: POTASSIUM CHLORIDE 20 MEQ ER TABLET 40 MEQ PO ×2 (10:14→14:05)
[2024-10-13] MEDS: CYANOCOBALAMIN 1,000 MCG TABLET 1000 MCG BY MOUTH (10:15)
[2024-10-13] MEDS: CALCIUM/VITAMIN D 500 MG/5 MCG (200 I.U.) TABLET BY MOUTH (10:15)
[2024-10-13 10:16] VITALS: PULSE 61
--- NOTE | 2024-10-13 12:54 | P.PNIM_ITS ---
Progress Note: A&P Assessment and Plan (1) Acute alteration in mental status: Code(s): R41.82 - Altered mental status, unspecified Status: Acute Assessment and Plan: Patient presented with altered mental status, HoTN and only responding to painful stimuli CT brain showing no acute intracranial process. Patient initially became more awake, alert but then altered again. Could be related to Tramadol but this is a home med and now on hold without improvement. Repeat CT brain no acute findings. B12 level okay. PCT level low. TSH elevated but FT4 normal. BCx growing Staph Epi that is probably a contaminant. Neuro consulted. LP ordered but INR too high. Changed Abx to cover for meningitis and viral encephilitis. NGT placed for nutrition. Her mental status returned to her baseline. Related to abx/anti-viral? Spoke with neurology who felt unlikely the patient has meningitis or encephalitis. Abx/Anti-viral stopped. Bedside swallow noted. NGT removed and diet started. Etiology unclear but patient remains at her baseline. Frank dose decreased. Follow for now. If remains stable, plan discharge tomorrow. (2) Septic shock: Code(s): A41.9 - Sepsis, unspecified organism; R65.21 - Severe sepsis with septic shock Status: Acute Assessment and Plan: Patient presented from shelter with altered mental status, hypotension refractory to IV fluid bolus Right femoral central line was inserted and patient started on Levophed 10/05 Received fluid bolus and then maintenance IV fluids as well as albumin for intravascular volume expansion Lactic was within normal limits, procalcitonin was 0.2 Able to wean off Levophed to maintain an appropriate MAP > 65 BCx and UCx collected and cefepime started. MRSA nasal swab was negative UCx grew 10-25K CFU of mixed urogential yulia BCx with 1/4 bottles positive for Staph Epi felt to be a contaminant Sepsis has resolved and shock has resolved. Abx stopped now (3) Urinary tract infection: Code(s): N39.0 - Urinary tract infection, site not specified Status: Acute Assessment and Plan: UA was positive for UTI, cultures were obtained UCx showing 10-25K colonies of mixed urogenital yulia She has a chronic Kaplan. Urosepsis still suspected as possible source. (4) CKD (chronic kidney disease) stage 3, GFR 30-59 ml/min: Code(s): N18.30 - Chronic kidney disease, stage 3 unspecified Status: Acute Assessment and Plan: Patient with chronic kidney injury Cr 1.2 on admission and within her baseline. She was adequately fluid-resuscitated Cr today at 1.03 Continue to monitor urine output, renal function and electrolytes (5) Combined systolic and diastolic congestive heart failure: Qualifiers: Heart failure chronicity: acute on chronic Qualified Code(s): I50.43 - Acute on chronic combined systolic (congestive) and diastolic (congestive) heart failure Code(s): I50.40 - Unspecified combined systolic (congestive) and diastolic (congestive) heart failure Status: Acute Assessment and Plan: Echo (07/08/24) showing EF 25-30%, hypokinesis of anteroseptum. LV chamber mildly enlarged, grade 2 diastolic dysfunction. Mild-mod , mod pHTN with RVSP of 52 mmHg Restarted home meds of Carvedilol, Imdur and Atorvastatin. Lasix and hydralazine on hold. Resume Lasix, Hydralazine when able Monitor (6) HTN (hypertension): Qualifiers: Hypertension type: unspecified Qualified Code(s): I10 - Essential (p rimary) hypertension Code(s): I10 - Essential (primary) hypertension Status: Chronic Assessment and Plan: Restarted meds on 10/08 but not taking due to AMS. Added back Coreg and Imdur 10/11. Patient's blood pressure was reviewed on 10/13 Blood pressure soft at times Will continue to monitor and adjust meds as needed (7) S/P AKA (above knee amputation) bilateral: Code(s): Z89.611 - Acquired absence of right leg above knee; Z89.612 - Acquired absence of left leg above knee Status: Acute Assessment and Plan: Likely related to diabetes and peripheral vascular disease, this is a chronic condition (8) GERD (gastroesophageal reflux disease): Code(s): K21.9 - Gastro-esophageal reflux disease without esophagitis Status: Acute Assessment and Plan: Protonix Plan Breast mass - CT from June showing right anterior chest wall seroma versus breast implant Abdominal mass - seroma in the anterior abdominal wall with wall calcifications. Code status - modified DVT prophylaxis - Heparin on hold. no SCDs since bilateral AKA Subjective Date/time seen: 10/13/24 12:54 Interval history: 69yo female with extensive medical history including recurrent C diff colitis, chronic indwelling Kaplan catheter with recurrent UTIs, dementia (baseline A&O x2) residing at nursing facility, essential hypertension, peripheral vascular disease with bilateral AKA, combined systolic-diastolic heart failure, insulin- dependent diabetes mellitus, hypothyroidism, GERD, CKD stage 3, anemia андрей presents to [facility] ER on 10/05/2024 as she was noted to be responsive to painful stimuli only. Her last known normal was around noon on the day of admission. No problems overnight. No Cp or abd pain. No SOB. Exam Narrative: AF 97.7 122/57 61 26 100% ra Gen - NARD Chest - Lungs clear anteriorly and in flank. Large firm mass in the right upper breast without change CV - RRR S1/S2 Abd - Soft, obese with large central firm mass that is well demarcated. - Kaplan secured draining clear yellow urine Ext - bilateral AKA Neuro - awake, alert and appropriate Psych - in good spirits Skin - Warm and dry. right abd wall dressing with evidence of old blood Objective Data Vital Signs Vital Signs: Vital Signs - 24 hr 10/12/24 14:09 10/12/24 20:50 10/12/24 20:51 Temperature 97.9 F Pulse Rate 72 69 Respiratory Rate 16 Blood Pressure 105/77 Pulse Oximetry 100 Oxygen Delivery Room Air 10/12/24 21:10 10/13/24 06:00 10/13/24 10:16 Temperature 97.5 F L 97.7 F Pulse Rate 73 61 61 Respiratory Rate 30 H 26 H Blood Pressure 139/50 L 122/57 L Pulse Oximetry 99 100 Oxygen Delivery Intake/Output Intake/Output: Intake & Output 10/10/24 10/11/24 10/12/24 10/13/24 23:59 23:59 23:59 23:59 Intake Total 3243 2487 822 360 Output Total 300 800 800 300 Balance 2943 1687 22 60 Meds/Results Medications: Active Medications Generic Name Dose Route Start Last Admin Trade Name Freq PRN Reason Stop Dose Admin Acetaminophen 650 mg 10/12/24 17:10 10/12/24 20:51 Acetaminophen 325 Mg Tablet BY MOUTH 650 mg Q6H PRN Administration Mild Pain (1-3) or Fever Atorvastatin Calcium 40 mg 10/12/24 21:00 10/12/24 20:51 Atorvastatin 40 Mg Tablet BY MOUTH 40 mg HS KASIE Administration Bisacodyl 10 mg 10/08/24 14:37 Bisacodyl 10 Mg Suppository RECTAL DAILY PRN constipation Calcium Carbonate 500 mg 10/13/24 09:00 10/13/24 10:15 Calcium/Vitamin D 500 Mg/5 Mcg (200 I.U.) Tablet BY MOUTH 500 mg QAM KASIE Administration Carvedilol 12.5 mg 10/12/24 21:00 10/13/24 10:16 Carvedilol 12.5 Mg Tablet PO 12.5 mg Q12HR KASIE Administration Cyanocobalamin 1,000 mcg 10/13/24 09:00 10/13/24 10:15 Cyanocobalamin 1,000 Mcg Tablet BY MOUTH 1,000 mcg DAILY KASIE Administration Dextrose 12.5 gm 10/07/24 07:24 Dextrose 50% 25 Gm/50 Ml Syringe IV PUSH PRN PRN Hypoglycemia Protocol Ferrous Sulfate 325 mg 10/12/24 17:00 10/13/24 10:15 Ferrous Sulfate Liquid 325 Mg/7.4 Ml Elixir BY MOUTH Not Given BID KASIE Furosemide 40 mg 10/13/24 09:00 Furosemide 40 Mg Tablet BY MOUTH DAILY KASIE Gabapentin 300 mg 10/12/24 17:00 10/13/24 10:13 Gabapentin 300 Mg Capsule BY MOUTH 300 mg TID KASIE Administration Glucagon 1 mg 10/07/24 07:24 Glucagon For Inj 1 Mg Vial IM PRN PRN Hypoglycemia Protocol Glucose 15 gm 10/07/24 07:24 Glucose Oral Gel 15 Gm Of Glucse In 37.5 Gm Tube PO PRN PRN Hypoglycemia Protocol Heparin Sodium (Porcine) 5,000 units 10/06/24 06:00 10/13/24 05:12 Heparin Sodium 5,000 Units/Ml Vial SUB-Q 5,000 units Q8HR [facility] Administration Hydralazine HCl 10 mg 10/11/24 17:00 Hydralazine 10 Mg Tablet FEED TUBE TID KASIE Dextrose 1,000 mls @ 100 mls/hr 10/07/24 07:24 Dextrose 5% 1,000 Ml IVPB PRN PRN Hypoglycemia Protocol Insulin Aspart 1 - 3 units 10/07/24 21:00 10/12/24 21:18 Insulin Aspart (*Bkc) 100 Units/Ml SUB-Q 1 units HS KASIE Administration Protocol Insulin Aspart 3 - 6 units 10/07/24 08:00 10/13/24 11:55 Insulin Aspart (*Bkc) 100 Units/Ml SUB-Q Not Given TIDWM [facility] Protocol Isosorbide Dinitrate 10 mg 10/12/24 17:00 10/13/24 10:14 Isosorbide Dinitrate 10 Mg Tablet BY MOUTH 10 mg TID KASIE Administration Levothyroxine Sodium 100 mcg 10/13/24 06:30 10/13/24 05:12 Levothyroxine Sodium 100 Mcg Tablet BY MOUTH 100 mcg DAILY@0630 KASIE Administration Loratadine 10 mg 10/13/24 09:00 10/13/24 10:13 Loratadine 10 Mg Tablet BY MOUTH 10 mg DAILY KASIE Administration Magnesium Citrate 150 ml 10/12/24 16:56 Magnesium Citrate 300 Ml Btl BY MOUTH DAILY PRN Constipation Magnesium Hydroxide 30 ml 10/12/24 16:56 Magnesium Hydroxide Susp 30 Ml Udc BY MOUTH HS PRN IF NO BM IN 3 DAYS Multivitamins/Calcium 1 tablet 10/13/24 09:00 10/13/24 10:13 Therapeutic Multivitamins/Minerals Tab (*Bkc) PO 1 tablet DAILY [facility] Administration Ondansetron HCl 4 mg 10/05/24 20:41 Ondansetron Inj 4 Mg/2 Ml Vial IV PUSH Q4H PRN Nausea Pantoprazole Sodium 40 mg 10/13/24 08:00 10/13/24 10:14 Pantoprazole 40 Mg Tablet BY MOUTH 40 mg DAILY@0800 [facility] Administration Polyethylene Glycol 17 gm 10/12/24 16:56 Polyethylene Glycol 3350 17 Gm Powd.Pack BY MOUTH QAM PRN Constipation Potassium Chloride 10 meq 10/09/24 09:00 10/11/24 15:22 Potassium Chloride 10 Meq Er Tablet PO Not Given DAILY KASIE Potassium Chloride 40 meq 10/13/24 08:00 10/13/24 10:14 Potassium Chloride 20 Meq Er Tablet PO 10/13/24 14:01 40 meq Q6H [facility] Administration Sodium Bicarbonate 650 mg 10/12/24 17:00 Sodium Bicarbonate Tab 650 Mg Tablet BY MOUTH BID [facility] Radiology Results: ITS Impressions Head CT 10/09/24 14:49 IMPRESSION: 1. No acute intracranial process. 2. Age-related changes the brain including mild to moderate diffuse volume loss and mild to moderate scattered white matter hypoattenuation consistent with chronic small vessel ischemic disease. Labs Labs: Laboratory Results - last 24 hr 10/12/24 10/12/24 10/13/24 16:21 20:41 05:37 WBC 4.8 RBC 2.72 L Hgb 8.5 L Hct 27.4 L MCV 100.7 H MCH 31.3 MCHC 31.0 L RDW 19.2 H Plt Count 135 L MPV 10.2 Immature Gran % (Auto) 0.4 Neut % (Auto) 57.4 Lymph % (Auto) 25.2 [place] % (Auto) 10.4 H Eos % (Auto) 5.8 H Baso % (Auto) 0.8 Lymph # (Auto) 1.21 [place] # (Auto) 0.5 Eos # (Auto) 0.3 Baso # (Auto) 0.0 Abs Immat Gran (auto) 0.02 Absolute Neuts (auto) 2.8 Absolute Nucleated RBC 0.000 Nucleated RBC % 0.0 Sodium 137 Potassium 3.0 L Chloride 104 Carbon Dioxide 26 Anion Gap 7 BUN 25 H Creatinine 1.03 H Estim Creat Clear Calc 44 Estimated GFR 53 L Glucose 121 H POC Capillary Glucose 161 H 202 H Calcium 7.6 L Magnesium 1.9 Total Bilirubin 0.5 AST 34 ALT 16 Alkaline Phosphatase 35 L Total Protein 6.8 Albumin 3.4 L 10/13/24 10/13/24 07:53 11:34 WBC RBC Hgb Hct MCV MCH MCHC RDW Plt Count MPV Immature Gran % (Auto) Neut % (Auto) Lymph % (Auto) [place] % (Auto) Eos % (Auto) Baso % (Auto) Lymph # (Auto) [place] # (Auto) Eos # (Auto) Baso # (Auto) Abs Immat Gran (auto) Absolute Neuts (auto) Absolute Nucleated RBC Nucleated RBC % Sodium Potassium Chloride Carbon Dioxide Anion Gap BUN Creatinine Estim Creat Clear Calc Estimated GFR Glucose POC Capillary Glucose 130 H 134 H Calcium Magnesium Total Bilirubin AST ALT Alkaline Phosphatase Total Protein Albumin
[2024-10-13 14:18] VITALS: BP 109/59; PULSE 69; RESP 20; TEMP 36.2; O2SAT 100
[2024-10-13] MEDS: GABAPENTIN 100 MG CAPSULE BY MOUTH (18:32)
[2024-10-13 20:30] VITALS: BP 134/78; PULSE 70; RESP 16; TEMP 35.7; O2SAT 100
[2024-10-13 21:12] VITALS: PULSE 70
[2024-10-13] MEDS: ATORVASTATIN 40 MG TABLET BY MOUTH (21:12)
[2024-10-13 21:30] VITALS: PULSE 70; RESP 20; O2SAT 100
[2024-10-14 05:30] VITALS: BP 153/68; PULSE 77; RESP 16; TEMP 35.7; O2SAT 99
[2024-10-14] MEDS: LEVOTHYROXINE SODIUM 100 MCG TABLET BY MOUTH (05:50)
[2024-10-14 06:24] LABS: Hematocrit 29.3 % (37.0-47.0); Hemoglobin 9.2 g/dL (12.0-15.0); Immature Granulocyte Percent A 0.2 % (0-0.5); Lymphocytes Absolute Auto 1.26 K/mm3 (0.9-3.2); Mean Corpuscular HGB Conc 31.4 g/dl (32-36); Mean Corpuscular Hemoglobin 32.1 pg (26-34); Mean Corpuscular Volume 102.1 fl (80-100); Nucleated Red Blood Cells Absolute Auto 0.020 K/mm3 (0.0-0.012); Nucleated Red Blood Cells Perc 0.4 % (0.0-0.2); Platelet Count Result 139 k/mm3 (150-375); Red Blood Count 2.87 M/mm3 (4.2-5.4); White Blood Count 5.3 K/mm3 (4.5-10.0)
[2024-10-14 06:44] LABS: Alanine Aminotransferase 17 U/L (6-35); Albumin Level 3.6 g/dL (3.5-5.1); Alkaline Phosphatase 46 U/L (38-126); Anion Gap 9 mmol/L (4-12); Aspartate Amino Transferase 33 U/L (14-36); Bilirubin,Total 0.6 mg/dL (0.2-1.3); Blood Urea Nitrogen 23 mg/dL (7-17); Calcium 7.6 mg/dL (8.4-10.2); Carbon Dioxide 20 mmol/L (22-30); Chloride 105 mmol/L (98-107); Estimated CRCL calculation 49 ml/min; Estimated Glomerular Filt Rate > 60; Glucose 174 mg/dL (65-110); Magnesium 2.0 mg/dL (1.6-2.3); Potassium 4.0 mmol/L (3.4-5.0); Sodium 134 mmol/L (137-145); Total Protein 7.4 g/dL (6.3-8.2)
[2024-10-14 08:34] VITALS: PULSE 77
[2024-10-14] MEDS: ISOSORBIDE DINITRATE 10 MG TABLET BY MOUTH ×3 (08:34→17:06)
[2024-10-14] MEDS: POTASSIUM CHLORIDE 10 MEQ ER TABLET PO (08:34)
[2024-10-14] MEDS: CALCIUM/VITAMIN D 500 MG/5 MCG (200 I.U.) TABLET BY MOUTH (08:34)
[2024-10-14] MEDS: LORATADINE 10 MG TABLET BY MOUTH (08:34)
[2024-10-14] MEDS: CYANOCOBALAMIN 1,000 MCG TABLET 1000 MCG BY MOUTH (08:35)
[2024-10-14] MEDS: PANTOPRAZOLE 40 MG TABLET BY MOUTH (08:35)
[2024-10-14] MEDS: FUROSEMIDE INJ 40 MG/4 ML VIAL IV PUSH ×2 (08:35→17:06)
[2024-10-14] MEDS: THERAPEUTIC MULTIVITAMINS/MINERALS TAB (*BKC) 1 TABLET PO (08:35)
[2024-10-14] MEDS: GABAPENTIN 100 MG CAPSULE BY MOUTH ×3 (08:35→17:06)
--- NOTE | 2024-10-14 11:57 | WPDNEUROLOGY ---
Neurology EEG Report General Information Date of Study: 10/14/24 TEST Electroencephalogram DIAGNOSIS episodes of changes in mental status CONDITION OF RECORDING Bedside EEG NUMBER [id number] CLINICAL HISTORY patient had episodes of change in mental status was unresponsive she had jerking of the head and upper extremities. Patient had above-knee amputation both sides. EEG DESCRIPTION During wakefulness the background activity consists of posterior dominant rhythm at 7-8 hertz with an amplitude of 15-30 microvolts. This appears poorly formed. Anteriorly low amplitude mixed frequency activity was seen. There is no significant anteroposterior gradient. Hyperventilation or photic stimulation were not performed. During drowsiness further attenuation of background activity was noted however patient did not progress to stage 2 sleep. IMPRESSION This is mild abnormal EEG due to presence of diffuse background slowing suggestive of generalized encephalopathy however no focal or paroxysmal epileptiform abnormality was seen.
[2024-10-14 14:00] VITALS: BP 170/91; PULSE 94; RESP 18; TEMP 35.8; O2SAT 98
--- NOTE | 2024-10-14 15:09 | PM.DS ---
DS: Admitting Diagnosis Discharge Date 10/14/24 Admitting Diagnosis Altered mental status DS: Discharge Diagnosis Discharge Diagnosis (1) Acute alteration in mental status: Code(s): R41.82 - Altered mental status, unspecified Status: Acute (2) Septic shock: Code(s): A41.9 - Sepsis, unspecified organism; R65.21 - Severe sepsis with septic shock Status: Acute (3) Urinary tract infection: Code(s): N39.0 - Urinary tract infection, site not specified Status: Acute (4) CKD (chronic kidney disease) stage 3, GFR 30-59 ml/min: Code(s): N18.30 - Chronic kidney disease, stage 3 unspecified Status: Acute (5) Combined systolic and diastolic congestive heart failure: Qualifiers: Heart failure chronicity: acute on chronic Qualified Code(s): I50.43 - Acute on chronic combined systolic (congestive) and diastolic (congestive) heart failure Code(s): I50.40 - Unspecified combined systolic (congestive) and diastolic (congestive) heart failure Status: Acute (6) HTN (hypertension): Qualifiers: Hypertension type: unspecified Qualified Code(s): I10 - Essential (primary) hypertension Code(s): I10 - Essential (primary) hypertension Status: Chronic (7) S/P AKA (above knee amputation) bilateral: Code(s): Z89.611 - Acquired absence of right leg above knee; Z89.612 - Acquired absence of left leg above knee Status: Acute (8) GERD (gastroesophageal reflux disease): Code(s): K21.9 - Gastro-esophageal reflux disease without esophagitis Status: Acute DS: Summary Hospital Course Reason for hospitalization: 69yo female with extensive medical history including recurrent C diff colitis, chronic indwelling Kaplan catheter with recurrent UTIs, dementia (baseline A&O x2) residing at nursing facility, essential hypertension, peripheral vascular disease with bilateral AKA, combined systolic-diastolic heart failure, insulin-dependent diabetes mellitus, hypothyroidism, GERD, CKD stage 3, anemia андрей presents to [facility] ER on 10/05/2024 as she was noted to be responsive to painful stimuli only. Her last known normal was around noon on the day of admission. Please see H&P for details. Hospital Course: Patient presented with altered mental status, HoTN and only responding to painful stimuli. CT brain showing no acute intracranial process. Hypotension refractory to IV fluid bolus. Right femoral central line was inserted and patient started on Levophed 10/05. Received fluid bolus, IV fluid and albumin for intravascular volume expansion. Lactic was within normal limits, procalcitonin was 0.2. Able to wean off Levophed to maintain an appropriate MAP > 65. BCx and UCx collected and cefepime started. MRSA nasal swab was negative. UCx grew 10-25K CFU of mixed urogential yulia. BCx with 1/4 bottles positive for Staph Epi felt to be a contaminant. Sepsis has resolved and shock has resolved. Patient initially became more awake, alert but then altered again. Could be related to Tramadol but this is a home med and now on hold without improvement. Repeat CT brain no acute findings. B12 level okay. PCT level low. TSH elevated but FT4 normal. Neuro consulted. LP ordered but INR too high. Changed Abx to cover for meningitis and viral encephilitis. NGT placed for nutrition. Her mental status returned to her baseline (AOx2). Spoke with neurology who felt unlikely the patient has meningitis or encephalitis so abx/anti-viral stopped. Bedside swallow noted. NGT removed and speech therapy evaluation; diet started. Etiology unclear but patient remains at her baseline. EEG showing mild abnormal EEG due to presence of diffuse background slowing suggestive of generalized encephalopathy however no focal or paroxysmal epileptiform abnormality was seen. Frank dose decreased. Echo (07/08/24) showing EF 25-30%, hypokinesis of anteroseptum. LV chamber mildly enlarged, grade 2 diastolic dysfunction. Mild-mod , mod pHTN with RVSP of 52 mmHg. Restarted home meds of Carvedilol, Imdur and Atorvastatin. Lasix and hydralazine on hold due to soft BP. Lasix resumed close to discharge. Breast mass noted on exam but CT from June showing right anterior chest wall seroma versus breast implant. Abdominal mass also noted and felt to be a seroma in the anterior abdominal wall with wall calcifications. Discussed with neurology who felt okay for discharge. She overall did well and was able to be discharged on 10/14/24. No answer at daughter's number. Status at Discharge Cognitive/behavioral status at discharge: stable Time Spent with Patient Time attestation: Total time spent providing and/or coordinating discharge services: 35 minutes Time spent: Greater than 30 minutes Exam Narrative: AF 96.4 170/91 94 18 98% ra Gen - NARD Chest - Lungs clear anteriorly and in flank. Large firm mass in the right upper breast without change CV - RRR S1/S2 Abd - Soft, NT/ND with large central firm mass that is well demarcated. - Kaplan secured draining clear yellow urine Ext - bilateral AKA Neuro - awake, alert and appropriate Psych - in good spirits Skin - Warm and dry. right abd wall dressing clean and dry DS: Data Data Completed and Pending Labs on day of discharge: Labs from last 24 hours 10/14/24 10/14/24 10/14/24 11:36 07:32 06:11 WBC 5.3 RBC 2.87 L Hgb 9.2 L Hct 29.3 L MCV 102.1 H MCH 32.1 MCHC 31.4 L RDW 19.9 H Plt Count 139 L MPV 10.4 Immature Gran % (Auto) 0.2 Neut % (Auto) 60.2 Lymph % (Auto) 23.8 [place] % (Auto) 9.5 H Eos % (Auto) 5.5 H Baso % (Auto) 0.8 Lymph # (Auto) 1.26 [place] # (Auto) 0.5 Eos # (Auto) 0.3 Baso # (Auto) 0.0 Abs Immat Gran (auto) 0.01 Absolute Neuts (auto) 3.2 Absolute Nucleated RBC 0.020 H Nucleated RBC % 0.4 H Sodium 134 L Potassium 4.0 Chloride 105 Carbon Dioxide 20 L Anion Gap 9 BUN 23 H Creatinine 0.92 Estim Creat Clear Calc 49 Estimated GFR > 60 Glucose 174 H POC Capillary Glucose 169 H 183 H Calcium 7.6 L Magnesium 2.0 Total Bilirubin 0.6 AST 33 ALT 17 Alkaline Phosphatase 46 Total Protein 7.4 Albumin 3.6 10/13/24 10/13/24 20:34 16:45 WBC RBC Hgb Hct MCV MCH MCHC RDW Plt Count MPV Immature Gran % (Auto) Neut % (Auto) Lymph % (Auto) [place] % (Auto) Eos % (Auto) Baso % (Auto) Lymph # (Auto) [place] # (Auto) Eos # (Auto) Baso # (Auto) Abs Immat Gran (auto) Absolute Neuts (auto) Absolute Nucleated RBC Nucleated RBC % Sodium Potassium Chloride Carbon Dioxide Anion Gap BUN Creatinine Estim Creat Clear Calc Estimated GFR Glucose POC Capillary Glucose 163 H 185 H Calcium Magnesium Total Bilirubin AST ALT Alkaline Phosphatase Total Protein Albumin Discharge Plan Discharge Attending physician on discharge: Shayne Mtz Consulting providers: Donovan Hook; Ivelisse Jalloh; Chirag Antonio Discharging Clinician: Shayne Mtz Anticipated Discharge Date/Time: 10/14/24 15:22 Patient Disposition: NH Half-Way/Asst Living Activity: as tolerated Diet: other - see discharge instructions Discharge Instructions: Heart healthy diet with minced and moist Level 5 diet. Routine Kaplan care. Dressing changes to the right abd wall excoriations per routine wound care Please check glucose before meals and before bed. Record for the doctor's review. Check blood pressure 1 to 2 times a day. Record for the doctor's review. Take precautions to avoid falls. Check daily morning weights after voiding. Call the doctor if the patient gains more than 3 lb in 2 days or 5 lb in 1 week. Contact the doctor if the patient has any fever, worsening confusion or other worrisome symptoms. Avoid NSAIDs (ibuprofen, naproxen, Aleve). Tylenol is safe to take. Follow-up with the provider at the facility. Thank you for using [facility] for your health care needs. Patient Instructions: Antibiotic Form, Heart Failure (DC) Patient Language: Chinese Stand Alone Forms: General Discharge Information Follow-up/Referrals: Jadiel Martínez [Other] - Call for Appointment Discharge Medications: Continued atorvastatin 40 mg tablet 40 mg PO HS levothyroxine 100 mcg tablet 100 mcg PO DAILY potassium chloride 10 mEq capsule, extended release 10 meq PO DAILY acetaminophen 325 mg capsule 650 mg PO Q4H PRN (Reason: pain or fever) cyanocobalamin (vitamin B-12) 1,000 mcg capsule 1,000 mcg PO DAILY calcium carbonate-vitamin D3 [Calcium 600 + D(3)] 600 mg-5 mcg (200 unit) capsule 1 cap PO DAILY Multi-Vitamin HP/Minerals Capsule 1 cap PO DAILY magnesium hydroxide [Milk of Magnesia] 400 mg/5 mL Suspension 400 mg PO HS PRN (Reason: Constipation) Rx Instructions: if no BM in 3 days magnesium citrate [Citroma] Solution 150 ml PO DAILY PRN (Reason: Constipation) Rx Instructions: if no results from enema Fleet Enema 19-7 gram/118 mL Enema 118 ml RECTAL DAILY PRN (Reason: Constipation) Rx Instructions: if no results 1 day after suppository ferrous sulfate 325 mg (65 mg iron) Tablet,Delayed Release (Dr/Ec) 325 mg PO BID Qty: 90 0RF bisacodyl 10 mg suppository 10 mg RECTAL DAILY PRN (Reason: constipation) Rx Instructions: if no results from MOM insulin aspart U-100 [Novolog U-100 Insulin aspart] 100 unit/mL solution See Rx Instructions .ROUTE .COMPLEX Rx Instructions: 150-200 2 units, 201-250 4 units, 251-300 6 units, 301-350 8 units, 351-400 10 units, 401-500 12 units, over 500 notify furosemide 40 mg Tablet 40 mg PO DAILY Qty: 30 0RF carvedilol [Coreg] 12.5 mg Tablet 12.5 mg PO Q12HR Qty: 60 0RF isosorbide dinitrate 10 mg Tablet 10 mg PO TID Qty: 90 0RF hydralazine 10 mg Tablet 10 mg PO TID Qty: 90 0RF cetirizine 10 mg tablet 10 mg PO DAILY silver sulfadiazine [Silvadene] 1 % cream 1 applic topical DAILY Patient Comments: Apply to sacrum daily and PRN Rx Instructions: apply a 1.5 mm thickness pantoprazole [Protonix] 40 mg tablet,delayed release (DR/EC) 40 mg PO DAILY Changed gabapentin 300 mg capsule 100 mg PO TID Qty: 10 0RF Held sodium bicarbonate 650 mg Tablet 650 mg PO BID Qty: 28 0RF Hold Instructions: HOLD - resume when okay with provider Discontinued tramadol 50 mg Tablet 50 mg PO Q8H PRN (Reason: pain) Date of admission: 10/05/24 20:41 Primary Care Provider: Jadiel Martínez Admitting Provider: Chantelle Gonsales Attending physician on admission: Chantelle Gonsales Condition: Stable Hospitalist MIPS Heart Failure (Exclusion) Patient has history of Heart Transplant or Left Ventricular Assistive Device?: No IF YES, STOP HERE Heart Failure (Qualifier) Patient has current or prior documentation of LVEF less than or equal to 40%, or mod/servere depressed LVSF?: Yes IF NO, STOP HERE If Yes, Heart Failure (Qualifier) Patient was prescribed or already taking an Angiotensin-Converting Enzyme ([place]) Inhibitor, or Antiotensin Receptor Consuelo (ARB): No Patient was prescribed or already taking bisoprolol, carvedilol, or sustained release metoprolol succinate: Yes If Medications not prescribed/taking Reason patient not prescribed/taking [place] or ARB: Medical reasons: allergy, intolerance, contraindication or other
[2024-10-14 20:45] VITALS: BP 139/70; PULSE 69; RESP 18; TEMP 35.7; O2SAT 100
[2024-10-14 20:49] VITALS: PULSE 69
[2024-10-14] MEDS: ATORVASTATIN 40 MG TABLET BY MOUTH (20:49)
[2024-10-17 18:08] LABS: West Nile Virus Source Serum (.); West Nile Virus by PCR Not Detected (.)
== END 2024-10-14 22:50 | DRG 871 ==
LOC: ANHED 17:05 → ANHICU 21:05 → ANH3MEDSUR 10-07 23:44
PROVIDERS: General Practice; Internal Medicine; Nurse Practitioner Adult Health; Admitting Provider General Practice; Emergency Provider Emergency Medicine; Visit Provider Internal Medicine
DX: A41.9 Sepsis, unspecified organism (principal); G93.41 Metabolic encephalopathy; R65.21 Severe sepsis with septic shock; T83.511A Infection and inflammatory reaction due to indwelling urethral catheter, initial encounter; N39.0 Urinary tract infection, site not specified; N17.9 Acute kidney failure, unspecified; I50.42 Chronic combined systolic (congestive) and diastolic (congestive) heart failure; I12.9 Hypertensive chronic kidney disease with stage 1 through stage 4 chronic kidney disease, or unspecified chronic kidney disease; N18.31 Chronic kidney disease, stage 3a; E11.22 Type 2 diabetes mellitus with diabetic chronic kidney disease; E11.51 Type 2 diabetes mellitus with diabetic peripheral angiopathy without gangrene; E11.40 Type 2 diabetes mellitus with diabetic neuropathy, unspecified; E78.5 Hyperlipidemia, unspecified; D50.9 Iron deficiency anemia, unspecified; K21.9 Gastro-esophageal reflux disease without esophagitis; F03.90 Unspecified dementia, unspecified severity, without behavioral disturbance, psychotic disturbance, mood disturbance, and anxiety; I25.2 Old myocardial infarction; Z89.612 Acquired absence of left leg above knee; Z89.611 Acquired absence of right leg above knee; Z79.4 Long term (current) use of insulin; Z85.3 Personal history of malignant neoplasm of breast; Z85.850 Personal history of malignant neoplasm of thyroid
CPT/HCPCS: 36415; 36556; 36600; 43752; 70450; 71045; 80048; 80053; 80202; 80307; 81001; 82140; 82306; 82375; 82607; 82746; 82805; 82948; 83050; 83605; 83690; 83735; 83880; 84100; 84145; 84439; 84443; 84480; 84484; 85018; 85025; 85055; 85610; 85730; 86140; 87040; 87086; 87641; 87798; 92523; 92610; 93005; 95816; 96361; 96365; 96375; 96376; 99291; A9270; C1751; J0133; J0290; J0692; J0696; J1200; J1644; J1815; J1885; J1938; J2060; J2312; J2470; J3373; J3430; J7030; J7040; J7042; J7050; J7060; P9041; P9047

== ENCOUNTER 2024-11-29 10:48 | Inpatient (IN) | payer MEDICARE, MEDICAID, SELFPAY ==
--- OUTSIDE RECORDS SUMMARY | 2024-11-27 16:42 | XMS_ITS | Encounter Summary ---
Author Organization [facility] Address [address] [place] [address] Care Team Providers Care Scaffolding Helper Name Role Phone Damon Swanson MD Unavailable Don Branham MD Primary Care Provider Encounter Details Date Type Department Care Team (Late st Contact Info) Description 11/27/2024 4:42 PM CDT - 11/27/2024 11:59 PM CDT Hospital Encounter [facility] [place] [address] Ivelisse Webb NP [address] [place] [address] Discharge Disposition: Home or Self Care (Routine [...] 10:31 PM SHAT Eloisa Chaidez RN Active documented as of this encounter Mental Status * Because of a physical, mental, or emotional condition, do you have serious difficulty concentrating, remembering, or making decisions? Answer Entry Date Author Status No 07/16/2019 10:31 PM SHAT Eloisa Chaidez RN Active documented in this encounter Medications [...] total) by mouth daily. 30 tablet 07/09/2019 documented as of this encounter Plan of Treatment Not on file documented as of this encounter Procedures Procedure Name Priority Date/Time Associated Diagnosis Comments PRO-BRAIN NATRIURETIC PEPTIDE Routine 11/27/2024 3:16 PM CDT Heart failure ([facility]) BASIC METABOLIC PANEL Routine 11/27/2024 3:16 PM CDT Heart failure (CMS/HCC HHS/HCC) documented in this encounter Results * (ABNORMAL) BASIC METABOLIC PANEL (11/27/2024 3:16 PM CDT) Pathologist [facility] GLUCOSE 168(H) 70 - 99 MG/DL 11/27/2024 5:19 PM CDT [facility] BUN 50(H) 7 - 18 MG/DL 11/27/2024 5:19 PM CDT [facility] CREATININE S/P/B 1.80(H) 0.55 - 1.02 MG/DL 11/27/2024 5:19 PM CDT [facility] SODIUM S/P/B 135(L) 136 - 145 MMOL/L 11/27/2024 5:19 PM CDT [facility] POTASSIUM S/P/B 6.1(H) 3.5 - 5.1 MMOL/L 11/27/2024 5:19 PM CDT [facility] CHLORIDE S/P/B 103 97 - 115 MMOL/L 11/27/2024 5:19 PM CDT [facility] CO2 27.8 21 - 32 MMOL/L 11/27/2024 5:19 PM CDT [facility] CALCIUM S/P/B 8.0(L) 8.5 - 10.1 MG/DL 11/27/2024 5:19 PM CDT [facility] ANION GAP 4.2 2 - 10 MMOL/L 11/27/2024 5:19 PM CDT [facility] BUN CREATININE RATIO 27.8(H) 6 - 26 11/27/2024 5:19 PM CDT [facility] GFR ESTIMATE 30(L) >90 ML/MIN/1.7 3 M2 11/27/2024 5:19 PM CDT [facility] Comment: NOTE: eGFR is not calculated for patients <18 years of age or gender unknown. This is an estimated GFR calculation using the new CKD EPI creatinine equation without race and so does not require a correction factor for race. This estimated GFR should not be used for calculating drug doses. 11/27/2024 3:16 PM [facility]T [facility] CAPACITY MANAGEMENT SPECIALIST LABORATORY Final Re sult Performing Organization Address City/[facility]/ZIP Co de Phone Number [facility] [address] [place] [address], [place] [phone] * (ABNORMAL) PRO-BRAIN NATRIURETIC PEPTIDE (11/27/2024 3:16 PM CDT) PRO-B TYPE NATRIURETIC PEPTIDE 22,856(H) <125 PG/ML 11/27/2024 5:19 PM CDT [facility] Comment: CUT POINTS ESTABLISHED BY INTERNATIONAL COLLABORATIVE ON NT PROBNP (ICON) STUDY (2006). AGE INDEPENDENT: <300 PG/ML HAS A 99% NEGATIVE PREDICTIVE VALUE FOR EXCLUDING ACUTE CHF <50 YEARS: >450 PG/ML IS CONSISTENT WITH ACUTE CHF 50-75 YEARS: >900 PG/ML IS CONSISTENT WITH ACUTE CHF >75 YEARS: >1800 PG/ML IS CONSISTENT WITH ACUTE CHF IN PATIENTS WITH RENAL INSUFFICIENCY (GFR <60), >1200 PG/ML YIELDS A DIAGNOSTIC SENSITIVITY AND SPECIFICITY OF 89% AND 72% FOR ACUTE CHF. 11/27/2024 3:16 PM CDT [facility] Luisa Webb CAPACITY MANAGEMENT SPECIALIST LABORATORY Final Re sult Performing Organization Address City/[facility]/ZIP Co de Phone Number [facility] [address] [place] [address], [place] [phone] documented in this encounter Visit Diagnoses Diagnosis Heart failure ([facility]) Congestive heart failure, unspecified documented in this encounter Additional Health Concerns Infection Onset Date Last Indicated Resolved Time MRSA Comment:MRSA Blood Identified 06/28/2019 06/28/2019 07/01/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
[2024-11-29] VITALS (14 sets, daily range): BP systolic 108–188; BP diastolic 48–160; PULSE 60–86; RESP 14–26; TEMP 36.4–36.8; O2SAT 92–100; BMI 33.5
--- NOTE | ~2024-11-29 | XR_ITS ---
Examination: XR chest 1V portable Clinical History: shortness of breath Comparison: 11/29/2024 Technique: Portable AP Findings: Heart size normal. Subtle streaky opacity right base. Left basilar atelectasis persists. No acute bony abnormality. Upper mediastinal calcified nodes as before. Rim calcified cyst right breast as before. IMPRESSION: 1. Developing mild right basilar atelectasis and/or airspace disease. Reviewed, dictated and finalized at location R.
--- NOTE | ~2024-11-29 | CT_ITS ---
Exam: CT abdomen and pelvis without contrast Clinical History: [Distention/pain ] Comparison: [ CT chest abdomen pelvis 07/06/2024 Technique: Multiple axial CT images of the abdomen and pelvis were obtained without IV contrast. Sagittal and coronal reformatted images were obtained. FINDINGS: Lung bases: [Small bilateral pleural effusions, larger on the right. Small patchy opacities in the lower lungs. ] Heart is enlarged. There are coronary artery calcifications. Liver: [ No mass.] [ No intrahepatic biliary duct dilatation.] Gallbladder: Not identified. Common bile duct: [ Normal caliber.] [ No stones.] Spleen: Spleen is small with several calcified granulomas. Pancreas: [ No mass. No pancreatic fluid collection.] Adrenals: [ No masses.] Kidneys: [ No masses. Moderate left-sided hydronephrosis and left-sided hydroureter. No CT evidence for renal or ureteral calculi. Lymph nodes: [ No adenopathy in the abdomen or pelvis.] Stomach, small bowel and colon: Thickening of the zamora of the sigmoid colon and rectum with surrounding fat stranding. Peritoneum cavity: Small amount of fat stranding and fluid scattered throughout the abdomen and pelvis. Bladder: Moderate thickening of the zamora of the bladder. Moderate amount of air in the bladder which may be due to recent instrumentation, however, cystitis is possible. Osseous structures: [ Multilevel degenerative change in the visualized spine.] Bones appear osteopenic. Abdominal aorta: [ No aneurysm.] Additional findings: Moderate nonspecific anasarca. There is a 9.7 x 7.9 x 14.7 cm loculated fluid collection along the anterior abdominal/pelvic wall. IMPRESSION: 1. Thickening of the zamora of the sigmoid colon and rectum with surrounding fat stranding. The findings may be secondary to proctitis/colitis. Recommend follow- up to resolution to exclude an underlying mass. 2.Small amount of nonspecific fat stranding and fluid scattered throughout the abdomen and pelvis. 3.Moderate left-sided hydronephrosis and left-sided hydroureter. 4.Moderate thickening of the zamora of the bladder. Moderate amount of air in the bladder which may be due to recent instrumentation, however, cystitis is possible. 5.Moderate nonspecific anasarca. 6.There is a 9.7 x 7.9 x 14.7 cm loculated fluid collection along the anterior abdominal/pelvic wall. Reviewed, dictated and finalized at location Q. IMPRESSION: 1. Thickening of the zamora of the sigmoid colon and rectum with surrounding fat stranding. The findings may be secondary to proctitis/colitis. Recommend follo w-up to resolution to exclude an underlying mass. 2.Small amount of nonspecific fat stranding and fluid scattered throughout the abdomen and pelvis. 3.Moderate left-sided hydronephrosis and left-sided hydroureter. 4.Moderate thickening of the zamora of the bladder. Moderate amount of air in th e bladder which may be due to recent instrumentation, however, cystitis is poss ible. 5.Moderate nonspecific anasarca. 6.There is a 9.7 x 7.9 x 14.7 cm loculated fluid collection along the anterior abdominal/pelvic wall.
--- NOTE | ~2024-11-29 | XR_ITS ---
Examination: XR chest 1V portable Clinical History: elevated pro-bnp Comparison: Chest x-ray 10/05/2024 Technique: Portable AP Findings: Heart size normal. Mild left basilar atelectasis. Lungs otherwise clear. No acute bony abnormality. Upper mediastinal calcification as before. Left axillary clips as before. Rim calcified cyst right breast as before. IMPRESSION: 1. No acute cardiopulmonary findings given portable technique. Reviewed, dictated and finalized at location R.
--- NOTE | ~2024-11-29 | US_ITS ---
Examination: Ultrasound of the retroperitoneum including kidneys and bladder. Clinical History: hydro follow up . Comparison: CT abdomen and pelvis one day prior Findings: Right kidney: 9 cm. Normal echogenicity. No collecting system dilatation. No shadowing calculi. Left kidney: Not seen. Urinary bladder: Not seen. IMPRESSION: 1. Technically difficult study. 2. Left kidney not seen. 3. Right kidney no hydronephrosis. Reviewed, dictated and finalized at location R.
--- OUTSIDE RECORDS SUMMARY | 2024-11-29 10:52 | XMS_ITS | Clinical Summary ---
Author Organization [facility] Address [facility] [place] [address] Care Team Providers Care Electrical Prospecting Observer Name Role Phone Damon Swanson MD Unavailable [phone] Don Branham MD Primary Care Provider [phone] Allergies Active Allergy Reactions Criticality Noted Date [...] 06/28/2019 Generalized weakness 06/06/2019 Hyperglycemia 06/05/2019 Sepsis ([facility]) 05/07/2019 Ulcer of lower limb, left, l imited to breakdown of skin ([facility]) 03/12/2019 Peripheral vascular disease 03/12/2019 Malignant neoplasm of upper- 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, estrogen receptor negative ([facility]) 11/13/2017 Encounters Date Type Department Care Team Description 11/27/2024 4:42 PM CDT - 11/27/2024 11:59 PM CDT Hospital Encounter [facility] [address] Ivelisse Webb NP Discharge Disposition: Home or Self Care (Routine Discharge) 11/27/2024 Orders Only [facility] [place] [address] [place] [address] Ivelisse Webb NP from Last 3 Months Immunizations Immunization Administration Dates Next Due Tdap [...] Colonoscopy (10 Years) 1955 Hepatitis C 1973 Pneumococcal Vaccine: 50+ Years (1 of 2 - PCV) 1974 Mammogram Screening 1995 Zoster Vaccines (1 of 2) 2005 RSV Immunization or 60+ Years (1 - Risk 60-74 years 1-dose series) 2015 Annual Medicare Wellness Visit 01/15/2020 Dexa Scan (General) 01/15/2020 COVID-19 Vaccine (1 - 2023-2 5 season) 2024 DTaP, Tdap and Td Vaccines ( 3 - Td or Tdap) 06/27/2029 06/28/2019, 06/28/2019 Meningococcal B Vaccine Aged Out No l onger eligible based on patient's age to complete this topic Meningococcal Vaccine Aged Out No kailey debbie eligible based on patient's age to complete this topic RSV Immunizations Under 20 Months Aged Out No longer eligible b ased on patient's age to complete this topic Procedures Procedure Name Priority Date/Time Associated Diagnosis Comments BASIC METABOLIC PANEL Routine 11/27/2024 3:16 PM CDT Heart failure ([facility]) PRO-BRAIN NATRIURETIC PEPTIDE Routine 11/27/2024 3:16 PM CDT Heart failure ([facility]) from Last 3 Months Results * (ABNORMAL) PRO-BRAIN NATRIURETIC PEPTIDE (11/27/2024 3:16 PM CDT) PRO-B TYPE NATRIURETIC PEPTIDE 22,856(H) <125 PG/ML 11/27/2024 5:19 PM CDT [facility] Comment: CUT POINTS ESTABLISHED BY [...] FOR ACUTE CHF. 11/27/2024 3:16 PM CDT Ivelisse Webb NP LABORATORY Final Re sult [facility] [address] [place] [address], * (ABNORMAL) BASIC METABOLIC PANEL (11/27/2024 3:16 PM CDT) GLUCOSE 168(H) 70 - 99 MG/DL 11/27/2024 5:19 PM CDT [facility] BUN 50(H) 7 - 18 MG/DL 11/27/2024 5:19 PM CDT [facility] CREATININE S/P/B 1.80(H) 0.55 - 1.02 MG/DL 11/27/2024 5:19 PM CDT [facility] SODIUM S/P/B 135(L) 136 - 145 MMOL/L 11/27/2024 5:19 PM CDT [facility] POTASSIUM S/P/B 6.1(H) 3.5 - 5.1 MMOL/L 11/27/2024 5:19 PM CDT [facility] CHLORIDE S/P/B 103 97 - 115 MMOL/L 11/27/2024 5:19 PM CDT [facility] CO2 27.8 21 - 32 MMOL/L 11/27/2024 5:19 PM CDT [facility] CALCIUM S/P/B 8.0(L) 8.5 - 10.1 MG/DL 11/27/2024 5:19 PM CDT [facility] ANION GAP 4.2 2 - 10 MMOL/L 11/27/2024 5:19 PM CDT [facility] BUN CREATININE RATIO 27.8(H) 6 - 26 11/27/2024 5:19 PM CDT [facility] GFR ESTIMATE 30(L) >90 ML/MIN/1.7 3 M2 11/27/2024 5:19 PM CDT [facility] Comment: NOTE: eGFR is not calculated for patients <18 years of age or gender unknown. This is an estimated GFR calculation using the new CKD EPI creatinine equation without race and so does not require a correction factor for race. This estimated GFR should not be used for calculating drug doses. 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
--- OUTSIDE RECORDS SUMMARY | 2024-11-29 10:52 | XMS_ITS | Clinical Summary ---
Author Organization [facility] Address [address] [place] [address] Phone Care Team Providers Care Production Posting Clerk Name Role Phone Damon SwansonTesha DO Unavailable [phone] Zeke Puente MD Primary Care Provider Sarah Baldwin MD, Karl Romero Unavailable [phone] Arley Peña MD Unavailable [phone] Allergies Active Allergy Reactions Criticality Noted Date Comments Codeine Phosphate Nausea & Vomiting Low 10/08/2012 Medications amLODIPine (NORVASC) 10 mg tablet Take 1 tablet (10 mg total) by mouth daily Active atorvastatin (LIPITOR) 40 mg tablet Take 1 tablet (40 mg total) by mouth daily Active levothyroxine (SYNTHROID) 100 mcg tablet Take 1 tablet (100 mcg total) by mouth stake setter before breakfast 30 tablet 1 1 Active [...] (06/21/2020): Added automatically from request for surgery [id number] Sepsis 11/20/2019 Acute hematogenous osteomyelitis of right [...] e alcohol) Social Connection and Isolation Panel Answer Date Recorded In a typical week, how many times do you talk on the phone with family, friends, or neighbors? Three times a week 06/27/2022 How often do you get togethe r with friends or relatives? Once a week 06/27/2022 How often do you attend chur ch or yazidi services? 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 Gender Identity Not on file [...] 10:19 AM CDT Height 94 cm (3' 1) 06/27/2022 5:02 PM CDT pt b jacques MERAZ Body Mass Index 82.17 06/27/2022 5:02 PM [...] Fall Risk Assessment 06/28/2023 06/27/2022, 06/22/19 19 eGFR 09/01/2024 09/02/2023, 06/11, 06/27/2022, Additional history exists Influenza Vaccine (#1) 2024 8, 01/24/2017, 01/02/2017, Additional history exists DTaP/Tdap/Td Vaccine (2 - [...] MD LAB BLOOD ORDERABLE S Final Result [facility] [address] [facility] Department [place] [address] * (ABNORMAL) Hemoglobin A1c (06/18/2020 5:43 AM CDT) Hgb A1C 8.0(H) 4.0 - 5.6 % [facility] Estimated Average Glucose 183 mg/dL [facility] Comment: The ADA recommends reporting an estimated Average Glucose (eAG) with all Hemoglobin A1c results using the equation derived from a study of 507 normal and diabetic adults. Minority populations were underrepresented and children were not included. (Diabetes Care 31:3378-6002, 2008). The eAG is not equivalent to a fasting glucose. Blood specimen (specimen) 06/18/2020 5:43 AM CDT 06/18/2020 6:23 AM CDT us Summer Anguiano MD LAB BLOOD ORDERABLES Final Result [facility] [address] Department [place] [address] * Screening Mammogram Bilateral W Zac (12/26/2016 [...] signed by: Edwar Deng M.D., md/:12/26/2016 11:34:53 Stripe Matcher: Layne VIVEROS (Yocasta)(Nathan), [facility] letter sent: Normal Exam Reading location: [facility] BI-RADS: 2 Benign [EOD] Narrative [...] mammogram, 11/07/2014 mammogram, and 10/30/2013 mammogram - [facility]. BREAST TISSUE: The tissue of both [...] 12/18/2015 mammogram,11/07/2014 mammogram, and 10/30/2013 mammogram - [facility]. BREAST TISSUE: The tissue of both [...] signed by: Edwar Deng M.D., md/:12/26/2016 11:34:53 Stripe Matcher: Layne Roger)(M), [facility] letter sent: Normal Exam Reading location: [facility] BI-RADS: 2 Benign [EOD] Damon Swanson DO IMG MAMMO PROCEDURES Final R esult from Last 3 Months or Most Recently Relevant to Health Maintenance Insurance MEDICARE IDMI MEDICARE MEDICARE IDPA Advance Directives For more information, please contact: [phone] Documents on File Type Date Recorded Patient Greeting Card Editor Expl anation ADVANCE DIRECTIVE 09/04/2023 2:51 PM POLST - Phys Order for PT Preferences ADVANCE DIRECTIVE 02/28/2019 12:00 AM [facility] OF [place] MANAGER FINANCIAL/MEDICAL * Full Code (Latest Code Status [...] 12:51 AM 11/20/2019 10:35 PM Care Teams Production Posting Clerk Relationship Specialty Start Date End Date Zeke Puente MD [address] [place] [address] PCP - General 12/02/18 Damon Swanson DO [address] [place] [id number] Medical Oncologist/Mail Opener Hematology and Oncology 10/25/17 Karl Smith Jr., MD [address] [place] [address] Surgeon General Surgery 11/07/19 Arley Peña MD [address] [place] [address] Surgeon General Surgery 06/26/20
--- OUTSIDE RECORDS SUMMARY | 2024-11-29 10:52 | XMS_ITS | Clinical Summary ---
Author Organization [facility] Address [address] [place] [address] Care Team Providers Care Sock Lining Examiner Name Role Phone Unavailable Primary Care Provider Unavailabl e Source Comments [facility],non-owned Affiliates and Associated Physician Practices is amultiple site organization consisting of ambulatory clinics and hospital sitesin [place], [place], [place] and [place]. This disclosure is being madepursuant to the Care Everywhere program and may not contain all information available regarding this patient. 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
--- NOTE | 2024-11-29 11:01 | ECG_ITS ---
Test Date: 2024-11-29 11:30:24 Measurements Intervals [place] Rate: 74 P: 104 MI: 225 QRS: 213 QRSD: 78 T: 70 QT: 372 QTc: 413 Interpretive Statements SINUS RHYTHM WITH FIRST DEGREE AV BLOCK LOW QRS VOLTAGE [QRS DEFLECTION < 0.5/1.0 mV IN LIMB/CHEST LEADS] ANTEROLATERAL MYOCARDIAL INFARCTION , OF INDETERMINATE AGE [40+ ms Q WAVE IN I/aVL/V3-V6] ABNORMAL ECG Electronically Signed On 11-29-2024 13:06:36 CDT by Edwar Altamirano M.D.
[2024-11-29] MEDS: GLUCAGON FOR INJ 1 MG VIAL IM (11:17)
--- NOTE | 2024-11-29 11:26 | ED.GENADULT ---
HPI - General Adult General Chief complaint: Recheck/Abnormal Lab/Rx Stated complaint: AB labs Time Seen by Provider: 11/29/24 10:55 History of Present Illness HPI narrative: 69-year-old female presents emergency department for evaluation [place] [id number]. Patient denies any current complaints other than that her bilateral legs stones are itchy. Patient also does have a new twitch that the care facility states that started a few days ago. Related Data Home Medications ?Medication ?Instructions ?Recorded ?Confirmed ?Last Taken ?Type atorvastatin 40 mg tablet 40 mg PO HS 12/05/21 11/29/24 10/04/24 History levothyroxine 100 mcg tablet 100 mcg PO DAILY 12/05/21 11/29/24 10/05/24 History potassium chloride 10 mEq 20 meq PO DAILY 05/16/22 11/29/24 11/29/24 History capsule,extended release magnesium citrate (Citroma oral 296 ml PO DAILY PRN Constipation 02/15/24 11/29/24 Unknown History solution) magnesium hydroxide 400 mg/5 mL 400 mg PO HS PRN Constipation 02/15/24 11/29/24 Unknown History oral suspension (Milk of Magnesia) acetaminophen 325 mg capsule 650 mg PO Q4H PRN pain or fever 05/04/24 11/29/24 Unknown History calcium 600 mg (as 1 cap PO DAILY 05/04/24 11/29/24 10/05/24 History carbonate)-vitamin D3 5 mcg (200 unit) capsule (Calcium 600 + D(3)) cyanocobalamin (vitamin B-12) 1,000 mcg PO DAILY 05/04/24 11/29/24 10/05/24 History 1,000 mcg capsule multivitamin,tx-minerals 1 cap PO DAILY 05/04/24 11/29/24 10/05/24 History (Multi-Vitamin HP/Minerals capsule) bisacodyl 10 mg rectal suppository 10 mg RECTAL DAILY PRN constipation 07/06/24 11/29/24 Unknown History insulin aspart U-100 100 unit/mL See Rx Instructions .Route .COMPLEX 07/06/24 11/29/24 10/05/24 History subcutaneous solution (Novolog U-100 Insulin aspart) cetirizine 10 mg tablet 10 mg PO DAILY 10/05/24 11/29/24 10/05/24 History pantoprazole 40 mg tablet,delayed 40 mg PO DAILY 10/05/24 11/29/24 10/05/24 History release (Protonix) tramadol 50 mg tablet 50 mg PO Q6-8H PRN pain 11/29/24 11/29/24 Unknown History Allergies Allergy/AdvReac Type Severity Reaction Status Date / Time codeine Allergy Unknown Verified 11/29/24 16:51 Review of Systems Review of Systems: All systems reviewed & are unremarkable except as noted in HPI and below [facility] Past Medical History Medical History (Updated 11/29/24 @ 18:39 by Yosi Irizarry MD) Dementia Chronic indwelling Kaplan catheter CKD (chronic kidney disease) stage 3, GFR 30-59 ml/min With baseline creatinine between 1.3 and 1.6 Iron deficiency anemia History of ESBL E. coli infection Recurrent Clostridioides difficile infection Anemia Pneumonia Stercoral colitis Urinary tract infection due to extended-spectrum beta lactamase (ESBL) producing Escherichia coli Type 2 diabetes mellitus Hypertension C. difficile diarrhea (01/2024) Gastroesophageal reflux disease History of breast cancer Thyroid cancer Hyperlipidemia Peripheral vascular disease Non-STEMI (non-ST elevated myocardial infarction) Combined systolic and diastolic congestive heart failure Echo 01/2024 demonstrated stable systolic dysfunction with EF of 25-30% but worsening diastolic function with grade 3-4 dysfunction with elevated left atrial pressures, mild right ventricular enlargement with hypokinesis of the right ventricle, mild aortic stenosis with mild aortic regurgitation, mild pulmonary hypertension with RVSP of 41 with [id number] pericardial effusion among other abnormalities Neuropathy Psychiatric disorder Surgical History Surgical History (Updated 11/29/24 @ 14:19 by Beba Starks, [employer]) S/P AKA (above knee amputation) bilateral History of thyroidectomy History of ventral hernia repair With chronic calcified seroma History of above-knee amputation of both lower extremities History of right breast implant Patient reports that it was radiation implant History of lumpectomy of left breast Family History Family History Mother Family history of type 2 diabetes mellitus, Onset Age: 55 Father Acute myocardial infarction, Onset Age: 58 Social History Social History Social History: Surrogate medical decision maker: Ailyn Turner, daughter. Code status: Do not resuscitate with selective treatment (paperwork accompanies the patient). Smoking status: Never smoker Second hand tobacco smoke exposure: No Alcohol intake: unknown Substance use: unknown Substance use type: does not use Do You Feel Safe in your Home?: Yes Lack of Transportation: No Lack of Food: Never True Current Housing: I Do Not Have Housing Concerned About Future Housing: No Difficulty Paying Gas/Electric Bills: No Difficulty Paying for Meds: No Currently Unemployed: No Education: High School Diploma/GED Difficulty w/ Childcare or Family Care: No Spiritual care concerns: No Exam Narrative: APPEARANCE: Well appearing, no pain, no distress, well-nourished. HEAD: normocephalic, atraumatic. EYES: PERRLA/EOMI, conjunctivae clear. NOSE: Normal no drainage EARS:TMS clear with good light reflex. THROAT: Pharynx clear, no exudate. NECK: Supple. No adenopathy, no masses. RESPIRATORY: Airway patent, respirations nonlabored. Clear to auscultation bilaterally, no rales, rhonchi, wheezing. CARDIOVASCULAR: Regular rate and rhythm without murmurs rubs or gallops. ABDOMINAL: Soft, nontender, nondistended, normal bowel sounds MUSCULOSKELETAL: Bilateral lower extremity amputations, bilateral lower extremity edema NEURO: Alert. Cranial nerves II through XII intact. Good gait. Good coordination SKIN: Warm, dry. Normal Color Course Vital Signs Vital signs: Vital Signs Pulse Rate 60 11/29/24 10:52 Respiratory Rate 18 11/29/24 10:52 Pulse Oximetry 100 11/29/24 10:52 Temperature 97.6 F 11/29/24 11:02 Pulse Rate 82 11/29/24 18:00 Respiratory Rate 22 H 11/29/24 15:48 Blood Pressure 156/115 H 11/29/24 15:48 Pulse Oximetry 97 11/29/24 15:48 Oxygen Delivery Room Air 11/29/24 11:02 Medical Decision Making MDM Narrative Medical decision making narrative: 69-year-old female presents to the emergency department for evaluation for increased lower extremity edema and new onset of twitching. Patient denies any complaints. Patient was hypoglycemic upon arrival but blood sugar did improve with eating and a D 50 AMP. Patient is afebrile with no leukocytosis and hemoglobin of 10.4 which is similar to her baseline. Patient has an elevated potassium of 5.8. Patient was treated with sodium bicarb minute and Lokelma for her hyperkalemia. Patient was not treated with insulin and glucose due to her recent hypoglycemia. Urine was concerning for urinary tract infection and patient was started on antibiotics in the emergency department. Patient's Kaplan catheter was also exchanged. Case was discussed with hospitalist patient was accepted for admission for diuresis and treatment for her urinary tract infection. Differential Diagnosis Differential Diagnosis: UTI, fluid overload, COVID, RSV, influenza, pneumonia Vital Signs Vital Signs: Vital Signs Pulse Rate 60 11/29/24 10:52 Respiratory Rate 18 11/29/24 10:52 Pulse Oximetry 100 11/29/24 10:52 Temperature 97.6 F 11/29/24 11:02 Pulse Rate 82 11/29/24 18:00 Respiratory Rate 22 H 11/29/24 15:48 Blood Pressure 156/115 H 11/29/24 15:48 Pulse Oximetry 97 11/29/24 15:48 Oxygen Delivery Room Air 11/29/24 11:02 Lab Data Lab results reviewed: Yes I reviewed the patient's lab results. 11/29/24 11:53 11/29/24 11:54 Labs: Lab Results 11/29/24 11/29/24 11/29/24 Range/Units 10:54 11:09 11:11 WBC (4.5-10.0) K/mm3 RBC (4.2-5.4) M/mm3 Hgb (12.0-15.0) g/dL Hct (37.0-47.0) % MCV (80-100) fl MCH (26-34) pg MCHC (32-36) g/dl RDW (11.5-14.5) % Plt Count (150-375) k/mm3 MPV (7.4-10.4) fl Immature Gran % (Auto) (0-0.5) % Neut % (Auto) (45.5-73.1) % Lymph % (Auto) (18.3-44.2) % Mcleod % (Auto) (2.6-8.5) % Eos % (Auto) (0-4.4) % Baso % (Auto) (0.2-1.2) % Lymph # (Auto) (0.9-3.2) K/mm3 Mcleod # (Auto) (0.1-0.6) K/mm3 Eos # (Auto) (0-0.3) K/mm3 Baso # (Auto) (0.0-0.1) K/mm3 Abs Immat Gran (auto) (0.00-0.031) K/mm3 Absolute Neuts (auto) (1.3-6.7) K/mm3 Absolute Nucleated RBC (0.0-0.012) K/mm3 Nucleated RBC % (0.0-0.2) % PT (11.1-14.7) Seconds INR APTT (22.3-36.8) Seconds Sodium (137-145) mmol/L Potassium (3.4-5.0) mmol/L Chloride (98-107) mmol/L Carbon Dioxide (22-30) mmol/L Anion Gap (4-12) mmol/L BUN (7-17) mg/dL Creatinine (0.7-1.0) mg/dL Estim Creat Clear Calc ml/min Estimated GFR (59 - ) Glucose (65-110) mg/dL POC Capillary Glucose 51 L* 49 L* 48 L* (65-105) mg/dl Lactic Acid (0.7-2.0) mmol/L Calcium (8.4-10.2) mg/dL Total Bilirubin (0.2-1.3) mg/dL AST (14-36) U/L ALT (6-35) U/L Alkaline Phosphatase (38-126) U/L C-Reactive Protein (<1.0) mg/dL NT-Pro-B Natriuret Pep (19.9-100) pg/mL Total Protein (6.3-8.2) g/dL Albumin (3.5-5.1) g/dL Urine Color (Yellow) Urine Appearance (Clear) Urine pH (5.0-9.0) Ur Specific Linden (1.001-1.035) Urine Protein (Negative) mg/dL Urine Glucose (UA) (Negative) mg/dL Urine Ketones (Negative) mg/dL Ur Blood (Man) (Negative) Urine Nitrate (Negative) Urine Bilirubin (Negative) Urine Urobilinogen (<2.0) mg/dL Add Ur Microanalysis Leukocyte Esterase Rfl (Negative) PABLO/UL Urine RBC (0-2) /hpf Urine WBC (0-3) /hpf Ur Squamous Epith Cells (Few) /hpf Urine Bacteria /hpf Urine Casts Hyaline Casts (None) /lpf Urine Yeast (Budding) (None) /hpf 11/29/24 11/29/24 11/29/24 Range/Units 11:53 11:54 11:57 WBC 5.4 (4.5-10.0) K/mm3 RBC 3.31 L (4.2-5.4) M/mm3 Hgb 10.4 L (12.0-15.0) g/dL Hct 32.8 L (37.0-47.0) % MCV 99.1 (80-100) fl MCH 31.4 (26-34) pg MCHC 31.7 L (32-36) g/dl RDW 17.4 H (11.5-14.5) % Plt Count 149 L (150-375) k/mm3 MPV 10.9 H (7.4-10.4) fl Immature Gran % (Auto) 0.4 (0-0.5) % Neut % (Auto) 64.2 (45.5-73.1) % Lymph % (Auto) 24.4 (18.3-44.2) % Mcleod % (Auto) 8.3 (2.6-8.5) % Eos % (Auto) 2.0 (0-4.4) % Baso % (Auto) 0.7 (0.2-1.2) % Lymph # (Auto) 1.33 (0.9-3.2) K/mm3 Mcleod # (Auto) 0.5 (0.1-0.6) K/mm3 Eos # (Auto) 0.1 (0-0.3) K/mm3 Baso # (Auto) 0.0 (0.0-0.1) K/mm3 Abs Immat Gran (auto) 0.02 (0.00-0.031) K/mm3 Absolute Neuts (auto) 3.5 (1.3-6.7) K/mm3 Absolute Nucleated RBC 0.000 (0.0-0.012) K/mm3 Nucleated RBC % 0.0 (0.0-0.2) % PT 20.0 H (11.1-14.7) Seconds INR 1.8 APTT 31.9 (22.3-36.8) Seconds Sodium 137 (137-145) mmol/L Potassium 5.8 H (3.4-5.0) mmol/L Chloride 102 (98-107) mmol/L Carbon Dioxide 24 (22-30) mmol/L Anion Gap 11 (4-12) mmol/L BUN 51 H D (7-17) mg/dL Creatinine 1.56 H (0.7-1.0) mg/dL Estim Creat Clear Calc 31 ml/min Estimated GFR 33 L (59 - ) Glucose 63 L (65-110) mg/dL POC Capillary Glucose (65-105) mg/dl Lactic Acid 1.3 (0.7-2.0) mmol/L Calcium 8.4 (8.4-10.2) mg/dL Total Bilirubin 1.0 (0.2-1.3) mg/dL AST 39 H (14-36) U/L ALT 13 (6-35) U/L Alkaline Phosphatase 47 (38-126) U/L C-Reactive Protein 2.3 H (<1.0) mg/dL NT-Pro-B Natriuret Pep > 39194 H (19.9-100) pg/mL Total Protein 8.1 (6.3-8.2) g/dL Albumin 3.8 (3.5-5.1) g/dL Urine Color (Yellow) Urine Appearance (Clear) Urine pH (5.0-9.0) Ur Specific Linden (1.001-1.035) Urine Protein (Negative) mg/dL Urine Glucose (UA) (Negative) mg/dL Urine Ketones (Negative) mg/dL Ur Blood (Man) (Negative) Urine Nitrate (Negative) Urine Bilirubin (Negative) Urine Urobilinogen (<2.0) mg/dL Add Ur Microanalysis Leukocyte Esterase Rfl (Negative) PABLO/UL Urine RBC (0-2) /hpf Urine WBC (0-3) /hpf Ur Squamous Epith Cells (Few) /hpf Urine Bacteria /hpf Urine Casts Hyaline Casts (None) /lpf Urine Yeast (Budding) (None) /hpf 11/29/24 11/29/24 11/29/24 Range/Units 12:09 13:16 13:26 WBC (4.5-10.0) K/mm3 RBC (4.2-5.4) M/mm3 Hgb (12.0-15.0) g/dL Hct (37.0-47.0) % MCV (80-100) fl MCH (26-34) pg MCHC (32-36) g/dl RDW (11.5-14.5) % Plt Count (150-375) k/mm3 MPV (7.4-10.4) fl Immature Gran % (Auto) (0-0.5) % Neut % (Auto) (45.5-73.1) % Lymph % (Auto) (18.3-44.2) % Mcleod % (Auto) (2.6-8.5) % Eos % (Auto) (0-4.4) % Baso % (Auto) (0.2-1.2) % Lymph # (Auto) (0.9-3.2) K/mm3 Mcleod # (Auto) (0.1-0.6) K/mm3 Eos # (Auto) (0-0.3) K/mm3 Baso # (Auto) (0.0-0.1) K/mm3 Abs Immat Gran (auto) (0.00-0.031) K/mm3 Absolute Neuts (auto) (1.3-6.7) K/mm3 Absolute Nucleated RBC (0.0-0.012) K/mm3 Nucleated RBC % (0.0-0.2) % PT (11.1-14.7) Seconds INR APTT (22.3-36.8) Seconds Sodium (137-145) mmol/L Potassium (3.4-5.0) mmol/L Chloride (98-107) mmol/L Carbon Dioxide (22-30) mmol/L Anion Gap (4-12) mmol/L BUN (7-17) mg/dL Creatinine (0.7-1.0) mg/dL Estim Creat Clear Calc ml/min Estimated GFR (59 - ) Glucose (65-110) mg/dL POC Capillary Glucose 63 L 156 H (65-105) mg/dl Lactic Acid (0.7-2.0) mmol/L Calcium (8.4-10.2) mg/dL Total Bilirubin (0.2-1.3) mg/dL AST (14-36) U/L ALT (6-35) U/L Alkaline Phosphatase (38-126) U/L C-Reactive Protein (<1.0) mg/dL NT-Pro-B Natriuret Pep (19.9-100) pg/mL Total Protein (6.3-8.2) g/dL Albumin (3.5-5.1) g/dL Urine Color Yellow (Yellow) Urine Appearance Turbid H (Clear) Urine pH 6.5 (5.0-9.0) Ur Specific Linden 1.010 (1.001-1.035) Urine Protein 2+ H (Negative) mg/dL Urine Glucose (UA) Negative (Negative) mg/dL Urine Ketones Negative (Negative) mg/dL Ur Blood (Man) 2+ H (Negative) Urine Nitrate Negative (Negative) Urine Bilirubin Negative (Negative) Urine Urobilinogen 1.0 (<2.0) mg/dL Add Ur Microanalysis Reviewed Leukocyte Esterase Rfl 3+ H (Negative) PABLO/UL Urine RBC 51-100 H (0-2) /hpf Urine WBC >100 H (0-3) /hpf Ur Squamous Epith Cells Few (Few) /hpf Urine Bacteria 1+ H /hpf Urine Casts 6-10 Hyaline Casts Present (None) /lpf Urine Yeast (Budding) Present H (None) /hpf Imaging Data Radiologist's impression: Impressions Chest X-Ray 11/29/24 13:21 IMPRESSION: 1. No acute cardiopulmonary findings given portable technique. Discharge Plan Discharge Clinical Impression: Anasarca, Urinary tract infection Patient Disposition: Still a Patient Condition: Serious
--- NOTE | 2024-11-29 11:34 | PC.NURSE ---
SPENCER Vinson and SPENCER Cobb at bedside attempting ultrasound IV and labs.
--- NOTE | 2024-11-29 11:35 | PC.NURSE ---
This RN called [facility] to ask about last time catheter was changed and medications given this am d/t pt. hypoglycemia. Staff from [facility] to call this RN back.
[2024-11-29 12:04] LABS: Hematocrit 32.8 % (37.0-47.0); Hemoglobin 10.4 g/dL (12.0-15.0); Immature Granulocyte Percent A 0.4 % (0-0.5); Lymphocytes Absolute Auto 1.33 K/mm3 (0.9-3.2); Mean Corpuscular HGB Conc 31.7 g/dl (32-36); Mean Corpuscular Hemoglobin 31.4 pg (26-34); Mean Corpuscular Volume 99.1 fl (80-100); Nucleated Red Blood Cells Absolute Auto 0.000 K/mm3 (0.0-0.012); Nucleated Red Blood Cells Perc 0.0 % (0.0-0.2); Platelet Count Result 149 k/mm3 (150-375); Red Blood Count 3.31 M/mm3 (4.2-5.4); White Blood Count 5.4 K/mm3 (4.5-10.0)
--- NOTE | 2024-11-29 12:11 | PC.NURSE ---
After 8oz of oj, 2 dylan crackers with PB, 1 carton of milk and 1 IM shot of glucagon, pt. B.S. 63. Pt. remains alert.
--- NOTE | 2024-11-29 12:15 | PC.NURSE ---
SPENCER Vinson unable to get blood culture set with ultrasound machine. Dr. Irizarry aware and ok to hold off on blood cultures at this time.
[2024-11-29 12:16] LABS: INR 1.8; Prothrombin Time 20.0 Seconds (11.1-14.7)
[2024-11-29] MEDS: DEXTROSE 50% 25 GM/50 ML SYRINGE IV PUSH (12:16)
[2024-11-29 12:17] LABS: Partial Thromboplastin Time 31.9 Seconds (22.3-36.8)
[2024-11-29 12:30] LABS: CRP 2.3 mg/dL (<1.0)
--- NOTE | 2024-11-29 12:30 | PC.NURSE ---
Pt. is drowsy, but can easily be woken up. Pt. has bilateral above the knee amputation. Bilateral thighs are edematous and tight. L. arm is edematous and tight. Abdomen is also distended and tight.
[2024-11-29 12:31] LABS: Alanine Aminotransferase 13 U/L (6-35); Albumin Level 3.8 g/dL (3.5-5.1); Alkaline Phosphatase 47 U/L (38-126); Anion Gap 11 mmol/L (4-12); Aspartate Amino Transferase 39 U/L (14-36); Bilirubin,Total 1.0 mg/dL (0.2-1.3); Blood Urea Nitrogen 51 mg/dL (7-17); Calcium 8.4 mg/dL (8.4-10.2); Carbon Dioxide 24 mmol/L (22-30); Chloride 102 mmol/L (98-107); Estimated CRCL calculation 31 ml/min; Estimated Glomerular Filt Rate 33; Glucose 63 mg/dL (65-110); Potassium 5.8 mmol/L (3.4-5.0); Sodium 137 mmol/L (137-145); Total Protein 8.1 g/dL (6.3-8.2)
[2024-11-29 12:40] LABS: NT Pro B Type Natriuretic Pept > 30000 pg/mL (19.9-100)
[2024-11-29] MEDS: FUROSEMIDE INJ 40 MG/4 ML VIAL IV PUSH (12:55)
--- NOTE | 2024-11-29 13:00 | PC.NURSE ---
Pt. arrived with chronic reyes in place. Per [facility], reyes last changed on 11/20/24. Urine purulent in reyes bag and poop present on catheter. Pt. cleaned of stool. 36mL taken out of balloon. Reyes removed. Reyes replaced with 18 turkish reyes.
[2024-11-29 13:37] LABS: Add Urine Microscopic? YES; Appearance Urine Turbid (Clear); Budding Yeast Urine Present /hpf; Glucose Urine UA Negative (Negative); Leukocyte Esterase Ur 3+ LEU/UL (Negative); Need Manual Microscopic Reviewed; Nitrate Urine Negative (Negative); Specific Grav Ur 1.010 (1.001-1.035)
--- NOTE | 2024-11-29 14:11 | P.HP_ITS ---
H&P: HPI History of Present Illness Date/Time: 11/29/24 14:11 Chief Complaint: Abnormal labs Narrative: 69-year-old female patient with past medical history of CKD, hypertension, thyroid cancer, chronic Kaplan, systolic and diastolic congestive heart failure, and bilateral above the knee amputations presents the hospital with elevated BMP. Patient had routine labs taking at her nursing facility where her BMP was 22,000. Patient has no complaints. She denies nausea, vomiting, shortness of breath, increased swelling. Patient states that she is hungry. Lab work here shows hemoglobin of 10.4, potassium of 8.5, BUN of 51, creatinine 1.56, glucose of 48, lactic acid of 1.3, AST of 39, CRP of 2.3, BMP over 30,000, UA shows negative nitrates, 3+ leukocyte esterase, 50-100 rbc's 100 wbc's, 1+ bacteria and 1+ yeast. EKG shows sinus rhythm with first-degree AV block. Review of Systems Review of Systems: 12 systems were reviewed and are negativ e except for as per HPI. PMF Past Medical History Medical History (Updated 11/29/24 @ 18:39 by Yosi Irizarry MD) Dementia Chronic indwelling Kaplan catheter CKD (chronic kidney disease) stage 3, GFR 30-59 ml/min With baseline creatinine between 1.3 and 1.6 Iron deficiency anemia History of ESBL E. coli infection Recurrent Clostridioides difficile infection Anemia Pneumonia Stercoral colitis Urinary tract infection due to extended-spectrum beta lactamase (ESBL) producing Escherichia coli Type 2 diabetes mellitus Hypertension C. difficile diarrhea (01/2024) Gastroesophageal reflux disease History of breast cancer Thyroid cancer Hyperlipidemia Peripheral vascular disease Non-STEMI (non-ST elevated myocardial infarction) Combined systolic and diastolic congestive heart failure Echo 01/2024 demonstrated stable systolic dysfunction with EF of 25-30% but worsening diastolic function with grade 3-4 dysfunction with elevated left atrial pressures, mild right ventricular enlargement with hypokinesis of the right ventricle, mild aortic stenosis with mild aortic regurgitation, mild pulmonary hypertension with RVSP of 41 with [id number] pericardial effusion among other abnormalities Neuropathy Psychiatric disorder Surgical History Surgical History (Updated 11/29/24 @ 14:19 by Beba Starks APRN) S/P AKA (above knee amputation) bilateral History of thyroidectomy History of ventral hernia repair With chronic calcified seroma History of above-knee amputation of both lower extremities History of right breast implant Patient reports that it was radiation implant History of lumpectomy of left breast Family History Family History Mother Family history of type 2 diabetes mellitus, Onset Age: 55 Father Acute myocardial infarction, Onset Age: 58 Social History Social History Social History: Surrogate medical decision maker: Ailyn Turner, daughter. Code status: Do not resuscitate with selective treatment (paperwork accompanies the patient). Smoking status: Never smoker Second hand tobacco smoke exposure: No Alcohol intake: unknown Substance use: unknown Substance use type: does not use Do You Feel Safe in your Home?: Yes Lack of Transportation: No Lack of Food: Never True Current Housing: I Do Not Have Housing Concerned About Future Housing: No Difficulty Paying Gas/Electric Bills: No Difficulty Paying for Meds: No Currently Unemployed: No Education: High School Diploma/GED Difficulty w/ Childcare or Family Care: No Spiritual care concerns: No Meds Home Medications and Allergies Home Medications ?Medication ?Instructions ?Recorded ?Confirmed ?Type atorvastatin 40 mg tablet 40 mg PO HS 12/05/21 5 History levothyroxine 100 mcg tablet 100 mcg PO DAILY 12/05/21 11/29/24 History potassium chloride 10 mEq 20 meq PO DAILY 05/16/22 History capsule,extended release magnesium citrate (Citroma oral 296 ml PO DAILY PRN Co nstipation 02/15/24 11/29/24 History solution) magnesium hydroxide 400 mg/5 mL 400 mg PO HS PRN Const ipation 02/15/24 11/29/24 History oral suspension (Milk of Magnesia) ferrous sulfate 325 mg (65 mg 325 mg PO BID #90 tabs 1 05/01/23 11/29/24 Rx iron) tablet,delayed release acetaminophen 325 mg capsule 650 mg PO Q4H PRN pain or fever 05/04/24 11/29/24 History calcium 600 mg (as 1 cap PO DAILY 05/04/2411/11 History carbonate)-vitamin D3 5 mcg (200 unit) capsule (Calcium 600 + D(3)) cyanocobalamin (vitamin B-12) 1,000 mcg PO DAILY 05/0411/29/24 History 1,000 mcg capsule multivitamin,tx-minerals 1 cap PO DAILY 05/04/2411/11 History (Multi-Vitamin HP/Minerals capsule) bisacodyl 10 mg rectal suppository 10 mg RECTAL DAILY PRN constipation 07/06/24 11/29/24 History insulin aspart U-100 100 unit/mL See Rx Instructions . Route .COMPLEX 07/06/24 11/29/24 History subcutaneous solution (Novolog U-100 Insulin aspart) carvedilol 12.5 mg tablet (Coreg) 12.5 mg PO Q12HR #60 tabs 07/18/24 11/29/24 Rx furosemide 40 mg tablet 40 mg PO DAILY #30 tabs 11/0411/29/24 Rx hydralazine 10 mg tablet 10 mg PO TID #90 tabs 11/29/24 Rx isosorbide dinitrate 10 mg tablet 10 mg PO TID #90 tab s 07/18/24 11/29/24 Rx sodium bicarbonate 650 mg tablet 650 mg PO BID #28 tab s 07/18/24 11/29/24 Rx Held on 10/14/24. Instructions: HOLD - resume when okay with provider cetirizine 10 mg tablet 10 mg PO DAILY 10/05/2411/11 History pantoprazole 40 mg tablet,delayed 40 mg PO DAILY 10/0511/29/24 History release (Protonix) gabapentin 300 mg capsule 100 mg (0.3333 x 300 mg) PO TID 10/14/24 11/29/24 Rx #10 caps tramadol 50 mg tablet 50 mg PO Q6-8H PRN pain 11/1111/29/24 History Allergies Allergy/AdvReac Type Severity Reaction Status Date / Time codeine Allergy Unknown Verified 11/29/24 16:51 Vital Signs Vital Signs - 24 hr 11/29/24 10:52 11/29/24 11:00 11/29/24 11:02 Temperature 97.6 F Pulse Rate 60 65 70 Respiratory Rate 18 18 24 H Blood Pressure 129/87 109/49 L Pulse Oximetry 100 100 100 Oxygen Delivery Room Air 11/29/24 12:17 11/29/24 13:00 11/29/24 13:59 Temperature Pulse Rate 71 73 65 Respiratory Rate 21 H 20 14 Blood Pressure 119/48 L 188/160 H 136/118 H Pulse Oximetry 99 95 92 Oxygen Delivery Exam Narrative: General: well appearing, appears stated age. HEENT: normocephalic, atraumatic. Mucous membranes moist. EOMI, PERRLA, bilateral sclera anicteric, no conjunctival injection. Neck supple without JVD, lymphadenopathy, or bruit. Respiratory: clear to ascultation bilaterally. No rales/rhonic/wheezes. Cardiovascular: Regular rate and rhythm, normal S1-S2 upon ascultation. No murmurs, rubs, or clicks. PMI is nondisplaced, capillary refill less than 3 second. Abdomen: Soft, round, no pulsatile masses, nondistended and nontender. No rebound, no guarding. No CVA tenderness, no hepatosplenomegaly. Bowel sounds present to all four quadrants. No high pitch or tinkling sounds, resonant to percussion. Extremities: No cyanosis, clubbing, Bilateral [id number]-[id number] amputation +2 edema Neuro: Alert and orientated x 4. PERRLA. Cranial nerves 2-12 intact without focal deficit. Skin: Warm, dry, and intact, without rash, erythema, or lesion. Psych: pleasant, cooperative, normal speech, normal affect, no hallucinations, no dysarthia H&P: Results Labs Labs: Short CBC 11/29/24 Range/Units 11:53 WBC 5.4 (4.5-10.0) K/mm3 Hgb 10.4 L (12.0-15.0) g/dL Hct 32.8 L (37.0-47.0) % Plt Count 149 L (150-375) k/mm3 [facility] 11/29/24 11:54 Sodium 137 Potassium 5.8 H Chloride 102 Carbon Dioxide 24 BUN 51 H D Creatinine 1.56 H Glucose 63 L Calcium 8.4 Liver Function 11/29/24 Range/Units 11:54 Total Bilirubin 1.0 (0.2-1.3) mg/dL AST 39 H (14-36) U/L ALT 13 (6-35) U/L Alkaline Phosphatase 47 (38-126) U/L Albumin 3.8 (3.5-5.1) g/dL Urine 11/29/24 Range/Units 13:16 Urine Color Yellow (Yellow) Urine Appearance Turbid H (Clear) Urine pH 6.5 (5.0-9.0) Ur Specific [place] 1.010 (1.001-1.035) Urine Protein 2+ H (Negative) mg/dL Urine Glucose (UA) Negative (Negative) mg/dL Assessment and Plan Assessment and plan (1) Catheter-associated urinary tract infection: Qualifiers: Encounter type: initial encounter Indwelling urinary catheter type: indwelling urethral catheter Qualified Code(s): T83.511A - Infection and inflammatory reaction due to indwelling urethral catheter, initial encounter; N39.0 - Urinary tract infection, site not specified Code(s): T83.511A - Infection and inflammatory reaction due to indwelling urethral catheter, initial encounter; N39.0 - Urinary tract infection, site not specified Status: Acute Assessment and Plan: Kaplan catheter exchange in the emergency room IV Rocephin Sensitive UA and cultures pending (2) CHF exacerbation: Code(s): I50.9 - Heart failure, unspecified Status: Acute Assessment and Plan: BNP over 30,000 Cardiology consulted Echocardiogram pending IV Lasix 40 mg given in ED Fluid restriction IV Lasix b.i.d. (3) Acute hyperkalemia: Code(s): E87.5 - Hyperkalemia Status: Acute Assessment and Plan: Patient given albuterol, Lasix, sodium bicarb, and Lokelma (4) Hypertension: Code(s): I10 - Essential (primary) hypertension Status: Acute Assessment and Plan: Continue anti hypertensive medications (5) Type 2 diabetes mellitus: Code(s): E11.9 - Type 2 diabetes mellitus without complications Status: Acute Assessment and Plan: Patient hypoglycemic and emergency room with the 50 Accu-Cheks a.c. HS Diabetic diet Hypoglycemia protocol (6) CKD (chronic kidney disease) stage 3, GFR 30-59 ml/min: Code(s): N18.30 - Chronic kidney disease, stage 3 unspecified Status: Acute Assessment and Plan: Monitor kidney function while aggressively diuresing Quality VTE Prophylaxis VTE prophylaxis: pharmacologic ordered If No VTE Prophylaxis Answer both mechanical and pharmacologic: Reason no mechanical VTE proph: barbie lac[facility] Hospitalist [facility] Advance Care Plan I have confirmed that the patient's Advanced Care Plan is present, code status is documented, or surrogate decision maker is listed in patient medical record.: Yes Medication Reconciliation I have utilized all available resources to obtain, update and review the patients current medications (includes all prescriptions, OTC, herbals, cannabis, and nutritional supplements).: Yes
--- NOTE | 2024-11-29 14:16 | PC.NURSE ---
Per emmett Correia to start antibiotics d/t inability to obtain blood cultures with ultrasound machine.
--- NOTE | 2024-11-29 14:22 | ECHO_ITS ---
Patient Info Name: Iris Pascual Age: 69 years : 1955 Gender: Female Ht: 62 in Wt: 182 lbs BSA: 1.94 m2 HR: 75 bpm BP: 136 / 118 mmHg Heart Rhythm: Sinus Rhythm Technical Quality: Good Exam Date: 11/29/2024 2:56 PM Patient Status: O Admit Date: 11/29/2024 Exam Type: CA echo dop color flow w con Complete two-dimensional, color flow and Doppler transthoracic echocardiogram is performed with contrast to opacify the left ventricle and to improve the deliniation of the left ventricle endocardial borders. Staff Referring Physician: Yosi Irizarry Scrap Metal Burner: Lynne Singh Attending Provider: Chantelle Gonsales Contrast/Agitated Saline Contrast/Ag. Saline: Definity Amount: 2.00 ml Summary 1. Left and right ventricular enlargement with biventricular systolic dysfunction. 2. Dilated left atrium. 3. Sclerotic aortic valve with mild aortic stenosis. 4. Trivial MR. 5. Moderate tricuspid insufficiency. 6. Small posterior pericardial effusion. Left Ventricle Left ventricular chamber dimension is mildly enlarged. Left ventricular systolic function is severely reduced, estimated at 25-30. The left ventricular diastolic function is normal. Right Ventricle Right ventricular chamber dimension is moderately enlarged. Right ventricular systolic function is reduced. Left Atria Left atrial chamber dimension is moderately enlarged. Right Atria Right atrial chamber dimension is normal. Aortic Valve The aortic valve is trileaflet. There is moderate aortic valve sclerosis. There is mild aortic valve stenosis with a peak velocity of 180 cm/s, mean gradient of 7 mmHg, and aortic valve area of 1.9 cm2. Pulmonic Valve The pulmonic valve is normal. Mitral Valve The mitral valve has normal leaflets. There is trace mitral valve regurgitation. The mitral valve annulus is severely calcified. Tricuspid Valve The tricuspid valve leaflets are normal. Pericardium/Pleural There is small pericardial effusion. Aorta The aortic root size at the sinus of Valsalva is normal. Left Ventricular Outflow Tract Name Value Normal LVOT 2D LVOT Diameter 2.0 cm LVOT Doppler LVOT Peak Velocity 115 cm/s LVOT Peak Gradient 4 mmHg LVOT Mean Gradient 2 mmHg LVOT VTI 27 cm LVOT VTI/AV VTI Ratio 0.6 LVOT Stroke Volume 86 ml LVOT CO 5.3 l/min LVOT CI 2.7 l/min/m2 Pulmonic Valve Name Value Normal RVOT Doppler RVOT Peak Velocity 68 cm/s RVOT Peak Gradient 2 mmHg PV Doppler PV Peak Velocity 67 cm/s PV Peak Gradient 2 mmHg Mitral Valve Name Value Normal MV Diastolic Function MV E Peak Velocity 101 cm/s MV A Peak Velocity 77 cm/s MV E/A 1.3 MV Decel Time (PW) 159 ms MV Annular TDI MV E/e' (Septal) 38.7 MV E/e' (Lateral) 15.7 MV E/e' (Average) 27.2 Tricuspid Valve Name Value Normal TV Regurgitation Doppler TR Peak Velocity 322 cm/s TR Peak Gradient 20 mmHg Aortic Valve Name Value Normal AV Doppler AV Peak Velocity 180 cm/s AV Peak Gradient 10 mmHg AV Mean Gradient 7 mmHg AV VTI 44 cm AV Area (Cont Eq VTI) 1.9 cm2 >=3.0 AV Area (Cont Eq Jesus) 2.0 cm2 AV DI (Jesus) 0.64 AV Regurgitation 2D LVOT Area 3.1 cm2 Ventricles Name Value Normal LV Dimensions 2D/MM IVS Diastolic Thickness (2D) 1.2 cm 0.6-1.0 LVID Diastole (2D) 4.4 cm 3.8-5.2 LVIW Diastolic Thickness (2D) 1.2 cm 0.6-0.9 LVID Systole (2D) 3.8 cm 2.2-3.5 LVOT Diameter 2.0 cm LV Mass (2D Cubed) 194.42 g 67.00-162.00 LV Mass Index (2D Cubed) 100 g/m2 43-95 Relative Wall Thickness (2D) 0.56 <=0.42 LV Fractional Shortening/Ejection Fraction 2D/MM LV Fractional Shortening (2D) 14 % 27-45 LV EF (2D Teichholz) 29 % LV Diastolic Volume (4C MOD) 114 ml LV EF (4C MOD) 34 % LV Diastolic Volume (2C MOD) 106 ml LV EF (2C MOD) 2 % LV Diastolic Volume (BP MOD) 111 ml 46-106 LV Diastolic Volume Index (BP MOD) 57 ml/m2 29-61 LV Systolic Volume (BP MOD) 91 ml 14-42 LV Systolic Volume Index (BP MOD) 47 ml/m2 8-24 LV EF (BP MOD) 18 % 54-74 LV Diastolic Length (4C) 7.8 cm LV Systolic Length (4C) 7.5 cm LV Stroke Volume (4C MOD) 38 ml Atria Name Value Normal LA Dimensions LA Volume (4C A-L) 37 ml LA Volume (BP A-L) 51 ml RA Dimensions RA Systolic Major [place] Length (4C) 6.0 cm 2.2-2.8 RA Area (4C) 19.9 cm2 <=18.0 Report Signatures
[2024-11-29] MEDS: SODIUM BICARBONATE 8.4% 50 MEQ/50 ML SYRINGE IV PUSH (14:36)
[2024-11-29] MEDS: cefTRIAXone 1 GM in SODIUM CHLORIDE 0.9% IV 50 ML 100 ML IVPB (14:40)
[2024-11-29] MEDS: SODIUM ZIRCONIUM CYCLOSILICATE 10 GM POWD.PACK PO (14:41)
--- NOTE | 2024-11-29 14:42 | PC.NURSE ---
audio technician at bedside.
--- NOTE | 2024-11-29 15:24 | PCRCNOTE ---
Pt. was checked on twice for nebulizer treatment, she was receiving a echo procedure. Pt still not available at 1515.
--- NOTE | 2024-11-29 15:30 | PC.NURSE ---
Pt. had large liquid green BM. Dirty depend removed. Mari care and catheter care performed using soap and water. Depend and full linen change completed. Pt. continues to have skin breakdown on bilateral buttocks and when cleaning genital area. Scant amount of bright red blood.
[2024-11-29] MEDS: PERFLUTREN LIPID MICROSPHERES 1.5 ML VIAL DILUTED TO 10 ML TOTAL VOLUME IV PUSH (15:32)
--- NOTE | 2024-11-29 15:32 | IVDEFINITY ---
Prior to administration of IV Definity the patient was educated on the risks and benefits of the imaging enhancing agent including potential adverse side effects. The patient verbalized understanding. Allergies were verified. No exclusion criteria were identified and at least one of the following inclusion criteria were met: 1) physician request, 2) patient technically difficult to image (per the [place] [employer] Echocardi[employer] guidelines of two or more segments not discernable within the apical view), or 3) questionable left ventricular function. ?
[2024-11-29] MEDS: ALBUTEROL SULFATE NEB 2.5 MG/3 ML INH 10 MG INHALATION (15:45)
--- NOTE | 2024-11-29 15:49 | PC.NURSE ---
RT at bedside administering breathing treatment.
[2024-11-29] MEDS: ATORVASTATIN 40 MG TABLET PO (20:56)
[2024-11-29] MEDS: traMADol HCL (*CRX) 50 MG TABLET PO (23:38)
[2024-11-30] VITALS (17 sets, daily range): BP systolic 96–159; BP diastolic 47–132; PULSE 74–85; RESP 17–20; TEMP 36.4–36.8; O2SAT 94–100
[2024-11-30 04:53] LABS: Anion Gap 11 mmol/L (4-12); Blood Urea Nitrogen 51 mg/dL (7-17); Calcium 8.1 mg/dL (8.4-10.2); Carbon Dioxide 21 mmol/L (22-30); Chloride 103 mmol/L (98-107); Estimated CRCL calculation 33 ml/min; Estimated Glomerular Filt Rate 36; Glucose 79 mg/dL (65-110); Potassium 4.8 mmol/L (3.4-5.0); Sodium 135 mmol/L (137-145)
[2024-11-30] MEDS: LEVOTHYROXINE SODIUM 100 MCG TABLET PO (05:42)
[2024-11-30 06:19] LABS: Hematocrit 26.3 % (37.0-47.0); Hemoglobin 8.5 g/dL (12.0-15.0); Immature Granulocyte Percent A 0.2 % (0-0.5); Lymphocytes Absolute Auto 0.84 K/mm3 (0.9-3.2); Mean Corpuscular HGB Conc 32.3 g/dl (32-36); Mean Corpuscular Hemoglobin 32.1 pg (26-34); Mean Corpuscular Volume 99.2 fl (80-100); Nucleated Red Blood Cells Absolute Auto 0.000 K/mm3 (0.0-0.012); Nucleated Red Blood Cells Perc 0.0 % (0.0-0.2); Platelet Count Result 124 k/mm3 (150-375); Red Blood Count 2.65 M/mm3 (4.2-5.4); White Blood Count 4.4 K/mm3 (4.5-10.0)
[2024-11-30] MEDS: ENOXAPARIN 40 MG/0.4 ML SYRINGE SUB-Q (08:41)
[2024-11-30] MEDS: LORATADINE 10 MG TABLET PO (08:43)
[2024-11-30] MEDS: DOCUSATE SODIUM 100 MG CAPSULE PO (08:43)
[2024-11-30] MEDS: PANTOPRAZOLE 40 MG TABLET PO (08:43)
[2024-11-30] MEDS: GABAPENTIN 100 MG CAPSULE PO (08:43)
[2024-11-30] MEDS: ISOSORBIDE DINITRATE 10 MG TABLET PO ×3 (08:43→17:33)
[2024-11-30] MEDS: FUROSEMIDE INJ 40 MG/4 ML VIAL IV PUSH (08:44)
--- NOTE | 2024-11-30 11:04 | P.CONCA_ITS ---
Assessment and Plan Assessment and plan (1) Combined systolic and diastolic congestive heart failure: Qualifiers: Heart failure chronicity: acute on chronic Qualified Code(s): I50.43 - Acute on chronic combined systolic (congestive) and diastolic (congestive) heart failure Code(s): I50.40 - Unspecified combined systolic (congestive) and diastolic (congestive) heart failure Status: Acute Plan This is a 69-year-old lady who has severe left ventricular systolic dysfunction. Because of her chronic kidney disease her medical regimen consists of the beta leah, hydralazine and isosorbide. She appears to be hemodynamically stable. I do not see any clinical or radiologic evidence that she is in decompensated heart failure. I would not conclude that she is in heart failure simply because her nitrate peptide level is elevated. This alone does not indicate a state of decompensated heart failure. Her she is hyperkalemic on arrival and that is the principal concern in my opinion this has been corrected her potassium supplement obviously should be stopped. I would continue the guideline directed medical therapy for her LV systolic dysfunction which she already has been continued. Will follow with you while she is in the hospital. Her potassium has been corrected so discharge back to her nursing facility is reasonable at any time Bud Mustafa MD [facility] History of Present Illness History of Present Illness Consult date/time: 11/30/24 11:04 Reason For Visit: hyperkalemia,fluid overload,uti Narrative: This is a 69-year-old lady who I have not seen previously but was seen by our service earlier this summer. She is a [place] [facility] resident who is a bilateral [id number] amputee who had was found to have left ventricular systolic dysfunction for which she was started on medical therapy. She was offered invasive evaluation but declined that. She has been treated with a combination of carvedilol, isosorbide and hydralazine. She was not given an ARB or Entresto because of renal insufficiency. She was discharged in hemodynamically stable condition. Apparently she lives in a [place] [facility] and laboratory lab studies were done for routine follow-up she was sent to the emergency room because of abnormal labs. It looks like she had a high nitric peptide level of 22,000 and a potassium of 5.8. Her potassium has been corrected. She does take a potassium supplement along with her diuretic in the [place] [facility]. She is not reporting any symptoms of shortness of breath or chest pain. Her chest x-ray looks clear to me and is reported as being clear by the radiologist. She is significantly obese and the quality of the film is not ideal but I do not see any vascular congestion. I was asked to see her because of decompensated heart failure. Presumably this is a concern because of her elevated BNP. Review of Systems 2 Constitutional: Constitutional: Reports difficulty sleeping Eyes: Eyes: Reports no additional eye complaints ENT: Reports system reviewed and no additional complaints, except as documented Cardiovascular: Cardiovascular: Reports as per HPI Respiratory: Respiratory: Reports no additional respiratory complaints Gastrointestinal: Gastrointestinal: Reports no additional gastrointestinal complaints Musculoskeletal: Musculoskeletal: Reports no additional musculoskeletal complaints Integumentary/Breasts: Skin/Breast: Reports system reviewed and no additional complaints, except as docu Neurologic: Reports system reviewed and no additional complaints, except as documented Endocrine: Endocrine: Reports no additional endocrine complaints Hematologic/Lymphatic: Hematologic/Lymphatic: Reports no additional hematologic/lymphatic complaints [facility] Past Medical History Medical History (Updated 11/29/24 @ 18:39 by Yosi Irizarry MD) Dementia Chronic indwelling Kaplan catheter CKD (chronic kidney disease) stage 3, GFR 30-59 ml/min With baseline creatinine between 1.3 and 1.6 Iron deficiency anemia History of ESBL E. coli infection Recurrent Clostridioides difficile infection Anemia Pneumonia Stercoral colitis Urinary tract infection due to extended-spectrum beta lactamase (ESBL) producing Escherichia coli Type 2 diabetes mellitus Hypertension C. difficile diarrhea (01/2024) Gastroesophageal reflux disease History of breast cancer Thyroid cancer Hyperlipidemia Peripheral vascular disease Non-STEMI (non-ST elevated myocardial infarction) Combined systolic and diastolic congestive heart failure Echo 01/2024 demonstrated stable systolic dysfunction with EF of 25-30% but worsening diastolic function with grade 3-4 dysfunction with elevated left atrial pressures, mild right ventricular enlargement with hypokinesis of the right ventricle, mild aortic stenosis with mild aortic regurgitation, mild pulmonary hypertension with RVSP of 41 with [id number] pericardial effusion among other abnormalities Neuropathy Psychiatric disorder Surgical History Surgical History (Updated 11/29/24 @ 14:19 by Beba Starks APRN) S/P AKA (above knee amputation) bilateral History of thyroidectomy History of ventral hernia repair With chronic calcified seroma History of above-knee amputation of both lower extremities History of right breast implant Patient reports that it was radiation implant History of lumpectomy of left breast Family History Family History Mother Family history of type 2 diabetes mellitus, Onset Age: 55 Father Acute myocardial infarction, Onset Age: 58 Social History Social History Social History: Surrogate medical decision maker: Ailyn Turner, daughter. Code status: Do not resuscitate with selective treatment (paperwork accompanies the patient). Smoking status: Never smoker Second hand tobacco smoke exposure: No Alcohol intake: unknown Substance use: unknown Substance use type: does not use Do You Feel Safe in your Home?: Yes Lack of Transportation: No Lack of Food: Never True Current Housing: I Do Not Have Housing Concerned About Future Housing: No Difficulty Paying Gas/Electric Bills: No Difficulty Paying for Meds: No Currently Unemployed: No Education: High School Diploma/GED Difficulty w/ Childcare or Family Care: No Spiritual care concerns: No Meds Home Medications and Allergies Home Medications ?Medication ?Instructions ?Recorded ?Confirmed ?Type atorvastatin 40 mg tablet 40 mg PO HS 12/05/21 5 History levothyroxine 100 mcg tablet 100 mcg PO DAILY 12/05/21 11/29/24 History potassium chloride 10 mEq 20 meq PO DAILY 05/16/22 History capsule,extended release magnesium citrate (Citroma oral 296 ml PO DAILY PRN Co nstipation 02/15/24 11/29/24 History solution) magnesium hydroxide 400 mg/5 mL 400 mg PO HS PRN Const ipation 02/15/24 11/29/24 History oral suspension (Milk of Magnesia) ferrous sulfate 325 mg (65 mg 325 mg PO BID #90 tabs 1 05/01/23 11/29/24 Rx iron) tablet,delayed release acetaminophen 325 mg capsule 650 mg PO Q4H PRN pain or fever 05/04/24 11/29/24 History calcium 600 mg (as 1 cap PO DAILY 05/04/2411/11 History carbonate)-vitamin D3 5 mcg (200 unit) capsule (Calcium 600 + D(3)) cyanocobalamin (vitamin B-12) 1,000 mcg PO DAILY 05/0411/29/24 History 1,000 mcg capsule multivitamin,tx-minerals 1 cap PO DAILY 05/04/2411/11 History (Multi-Vitamin HP/Minerals capsule) bisacodyl 10 mg rectal suppository 10 mg RECTAL DAILY PRN constipation 07/06/24 11/29/24 History insulin aspart U-100 100 unit/mL See Rx Instructions . Route .COMPLEX 07/06/24 11/29/24 History subcutaneous solution (Novolog U-100 Insulin aspart) carvedilol 12.5 mg tablet (Coreg) 12.5 mg PO Q12HR #60 tabs 07/18/24 11/29/24 Rx furosemide 40 mg tablet 40 mg PO DAILY #30 tabs 05/11/0411/29/24 Rx hydralazine 10 mg tablet 10 mg PO TID #90 tabs 11/29/24 Rx isosorbide dinitrate 10 mg tablet 10 mg PO TID #90 tab s 07/18/24 11/29/24 Rx sodium bicarbonate 650 mg tablet 650 mg PO BID #28 tab s 07/18/24 11/29/24 Rx Held on 10/14/24. Instructions: HOLD - resume when okay with provider cetirizine 10 mg tablet 10 mg PO DAILY 10/05/2411/11 History pantoprazole 40 mg tablet,delayed 40 mg PO DAILY 10/0511/29/24 History release (Protonix) gabapentin 300 mg capsule 100 mg (0.3333 x 300 mg) PO TID 10/14/24 11/29/24 Rx #10 caps tramadol 50 mg tablet 50 mg PO Q6-8H PRN pain 11/1111/29/24 History Allergies Allergy/AdvReac Type Severity Reaction Status Date / Time codeine Allergy Unknown Verified 11/29/24 16:51 Vital Signs Vital Signs - 24 hr 11/29/24 12:17 11/29/24 13:00 11/29/24 13:59 Temperature Pulse Rate 71 73 65 Respiratory Rate 21 H 20 14 Blood Pressure 119/48 L 188/160 H 136/118 H Pulse Oximetry 99 95 92 Oxygen Delivery 11/29/24 15:45 11/29/24 15:48 11/29/24 18:00 Temperature Pulse Rate 80 81 82 Respiratory Rate 26 H 22 H Blood Pressure 156/115 H Pulse Oximetry 97 Oxygen Delivery 11/29/24 19:34 11/29/24 20:00 11/29/24 20:00 Temperature 36.8 C Pulse Rate 76 78 78 Respiratory Rate 17 17 Blood Pressure 158/97 H Pulse Oximetry 94 94 Oxygen Delivery Room Air 11/29/24 21:39 11/29/24 22:00 11/29/24 23:15 Temperature 36.6 C Pulse Rate 82 86 Respiratory Rate 17 Blood Pressure 108/92 H Pulse Oximetry 94 100 Oxygen Delivery Room Air 11/30/24 00:00 11/30/24 00:00 11/30/24 02:00 Temperature Pulse Rate 76 76 78 Respiratory Rate 17 Blood Pressure Pulse Oximetry 100 Oxygen Delivery Room Air 11/30/24 03:09 11/30/24 04:00 11/30/24 04:00 Temperature 36.5 C Pulse Rate 78 85 85 Respiratory Rate 18 18 Blood Pressure 146/96 H Pulse Oximetry 100 100 Oxygen Delivery Room Air 11/30/24 06:00 11/30/24 07:55 11/30/24 08:00 Temperature 36.4 C L Pulse Rate 78 79 77 Respiratory Rate 18 Blood Pressure 151/132 H Pulse Oximetry 97 Oxygen Delivery 11/30/24 08:00 11/30/24 08:43 11/30/24 10:00 Temperature Pulse Rate 78 78 Respiratory Rate Blood Pressure Pulse Oximetry Oxygen Delivery Room Air Exam 2 Const: Other: Very pleasant black female appearing about her stated age resting in bed, no distress HENMT: Mouth: Yes moist mucous membranes Eyes: Sclera: sclerae normal Neck: Neck: supple Resp: Effort & Inspection: normal respiratory effort Auscultation: clear to auscultation bilaterally Cardio: Rate: regular rate Rhythm: regular rhythm Other: PMI is not palpable GI: GI Palp: Yes Soft to palpation Auscultation: normal bowel sounds Skin: General skin exam: normal color Neuro: Other: Alert and responsive Extrem: Other: Bilateral [id number] amputee Results Labs and Meds 11/30/24 06:10 11/30/24 04:11 Lab results: Cardiac Enzymes 11/29/24 Range/Units 11:54 AST 39 H (14-36) U/L Coagulation 11/29/24 Range/Units 11:54 PT 20.0 H (11.1-14.7) Seconds APTT 31.9 (22.3-36.8) Seconds CBC 11/29/24 11/30/24 Range/Units 11:53 06:10 WBC 5.4 4.4 L (4.5-10.0) K/mm3 RBC 3.31 L 2.65 L (4.2-5.4) M/mm3 Hgb 10.4 L 8.5 L (12.0-15.0) g/dL Hct 32.8 L 26.3 L (37.0-47.0) % Plt Count 149 L 124 L (150-375) k/mm3 Lymph # (Auto) 1.33 0.84 L (0.9-3.2) K/mm3 [place] # (Auto) 0.5 0.4 (0.1-0.6) K/mm3 Eos # (Auto) 0.1 0.1 (0-0.3) K/mm3 Baso # (Auto) 0.0 0.0 (0.0-0.1) K/mm3 Comprehensive Metabolic Panel 11/29/24 11/30/24 Range/Units 11:54 04:11 Sodium 137 135 L (137-145) mmol/L Potassium 5.8 H 4.8 (3.4-5.0) mmol/L Chloride 102 103 (98-107) mmol/L Carbon Dioxide 24 21 L (22-30) mmol/L BUN 51 H D 51 H (7-17) mg/dL Creatinine 1.56 H 1.45 H (0.7-1.0) mg/dL Glucose 63 L 79 (65-110) mg/dL Calcium 8.4 8.1 L (8.4-10.2) mg/dL AST 39 H (14-36) U/L ALT 13 (6-35) U/L Alkaline Phosphatase 47 (38-126) U/L Total Protein 8.1 (6.3-8.2) g/dL Albumin 3.8 (3.5-5.1) g/dL Intake and Output 11/29/24 11/30/24 11/30/24 23:59 07:59 15:59 Intake Total 0 Output Total 800 800 Balance -800 -800 0 Intake: Oral 0 Output: Catheter Urine 800 800 Urethral Catheter 800 800 Other: Number of Bowel Movements Today 1 Patient Weight 11/30/24 23:59 Weight 81.7 kg
--- NOTE | 2024-11-30 13:11 | PM.IMPN ---
Progress Note: A&P Assessment and Plan (1) Catheter-associated urinary tract infection: Qualifiers: Indwelling urinary catheter type: indwelling urethral catheter Encounter type: initial encounter Qualified Code(s): T83.511A - Infection and inflammatory reaction due to indwelling urethral catheter, initial encounter; N39.0 - Urinary tract infection, site not specified Code(s): T83.511A - Infection and inflammatory reaction due to indwelling urethral catheter, initial encounter; N39.0 - Urinary tract infection, site not specified Status: Acute (2) CHF exacerbation: Code(s): I50.9 - Heart failure, unspecified Status: Acute (3) Acute hyperkalemia: Code(s): E87.5 - Hyperkalemia Status: Acute (4) Hypertension: Code(s): I10 - Essential (primary) hypertension Status: Acute (5) Type 2 diabetes mellitus: Code(s): E11.9 - Type 2 diabetes mellitus without complications Status: Acute (6) CKD (chronic kidney disease) stage 3, GFR 30-59 ml/min: Code(s): N18.30 - Chronic kidney disease, stage 3 unspecified Status: Acute Plan 69-year-old female patient with past medical history of CKD, hypertension, thyroid cancer, chronic Kaplan, systolic and diastolic congestive heart failure, and bilateral above the knee amputations presents the hospital with elevated BNP. Patient had routine labs taking at her nursing facility where her BNP was 22,000. Patient also has twitching that started few days ago. She denies nausea, vomiting, shortness of breath, increased swelling. Lab work here shows hemoglobin of 10.4, potassium of 5.8, BUN of 51, creatinine 1.56, glucose of 48, lactic acid of 1.3, AST of 39, CRP of 2.3, BNP over 30,000, UA shows negative nitrates, 3+ leukocyte esterase, 50-100 rbc's 100 wbc's, 1+ bacteria and 1+ yeast. EKG shows sinus rhythm with first-degree AV block. Chest x-ray showed no acute cardiopulmonary findings. Twitching unclear etiology? Mild serotonin syndrome. On tramadol which will be held. Also hold her gabapentin. Electrolytes has now normalized however twitching still present on evaluation. Will check CK level. Will also be related to hypoglycemia which has now resolved Catheter associated UTI Kaplan exchanged in the ER on IV Rocephin follow urine culture Congestive heart failure not in acute exacerbation the a BNP over 30,000 cardiology consulted echo pending. Received IV Lasix continue diuresis as ordered +restriction. Chronic systolic diastolic with EF 25-30% on 07/05. On carvedilol high so drill and hydralazine Hyperkalemia treated and resolved with albuterol Lasix sodium bicarb and Lokelma Hypertension home medication Type 2 diabetes mellitus with hypoglycemia not on any medications at home will continue to monitor which has now resolved. On SSI CKD stage 3 continue to monitor renal function Hypothyroidism on levothyroxine Hyperlipidemia on atorvastatin Constipation DVT prophylaxis Lovenox Code status do not resuscitate Subjective Date/time seen: 11/30/24 13:11 Interval history: Chart reviewed. No new complaints. Has some twitching still present. No abdominal pain chest pain shortness of breath. Review of Systems Review of Systems: 12 systems were reviewed and are negative except for as per HPI. Exam Narrative: General: well appearing, appears stated age. HEENT: normocephalic, atraumatic. Mucous membranes moist. EOMI, PERRLA, bilateral sclera anicteric, no conjunctival injection. Neck supple without JVD, lymphadenopathy, or bruit. Respiratory: clear to ascultation bilaterally. No rales/rhonic/wheezes. Cardiovascular: Regular rate and rhythm, normal S1-S2 upon ascultation. No murmurs, rubs, or clicks. PMI is nondisplaced, capillary refill less than 3 second. Abdomen: Soft, round, no pulsatile masses, nondistended and nontender. No rebound, no guarding. No CVA tenderness, no hepatosplenomegaly. Bowel sounds present to all four quadrants. No high pitch or tinkling sounds, resonant to percussion. Extremities: No cyanosis, clubbing, Bilateral [id number] amputation +2 edema Neuro: Alert and orientated x 4. PERRLA. Cranial nerves 2-12 intact without focal deficit. Skin: Warm, dry, and intact, without rash, erythema, or lesion. Psych: pleasant, cooperative, normal speech, normal affect, no hallucinations, no dysarthia Objective Data Vital Signs Vital Signs: Vital Signs - 24 hr 11/29/24 13:59 11/29/24 15:45 11/29/24 15:48 Temperature Pulse Rate 65 80 81 Respiratory Rate 14 26 H 22 H Blood Pressure 136/118 H 156/115 H Pulse Oximetry 92 97 Oxygen Delivery 11/29/24 18:00 11/29/24 19:34 11/29/24 20:00 Temperature 98.2 F Pulse Rate 82 76 78 Respiratory Rate 17 17 Blood Pressure 158/97 H Pulse Oximetry 94 94 Oxygen Delivery Room Air 11/29/24 20:00 11/29/24 21:39 11/29/24 22:00 Temperature Pulse Rate 78 82 Respiratory Rate Blood Pressure Pulse Oximetry 94 Oxygen Delivery Room Air 11/29/24 23:15 11/30/24 00:00 11/30/24 00:00 Temperature 97.8 F Pulse Rate 86 76 76 Respiratory Rate 17 17 Blood Pressure 108/92 H Pulse Oximetry 100 100 Oxygen Delivery Room Air 11/30/24 02:00 11/30/24 03:09 11/30/24 04:00 Temperature 97.7 F Pulse Rate 78 78 85 Respiratory Rate 18 18 Blood Pressure 146/96 H Pulse Oximetry 100 100 Oxygen Delivery Room Air 11/30/24 04:00 11/30/24 06:00 11/30/24 07:55 Temperature 97.5 F L Pulse Rate 85 78 79 Respiratory Rate 18 Blood Pressure 151/132 H Pulse Oximetry 97 Oxygen Delivery 11/30/24 08:00 11/30/24 08:00 11/30/24 08:43 Temperature Pulse Rate 77 78 Respiratory Rate Blood Pressure Pulse Oximetry Oxygen Delivery Room Air 11/30/24 10:00 11/30/24 12:00 11/30/24 12:00 Temperature Pulse Rate 78 79 Respiratory Rate Blood Pressure Pulse Oximetry Oxygen Delivery Room Air 11/30/24 12:00 Temperature 98.2 F Pulse Rate 77 Respiratory Rate 20 Blood Pressure 96/47 L Pulse Oximetry 95 Oxygen Delivery Intake/Output Intake/Output: Intake & Output 11/27/24 11/28/24 11/29/24 11/30/24 23:59 23:59 23:59 23:59 Intake Total 50 0 Output Total 800 800 Balance -750 -800 Meds/Results Medications: Active Medications Generic Name Dose Route Start Last Admin Trade Name Freq PRN Reason Stop Dose Admin Acetaminophen 650 mg 11/29/24 14:20 Acetaminophen 325 Mg Tablet PO Q4H PRN Mild Pain (1-3) or Fever Atorvastatin Calcium 40 mg 11/29/24 21:00 11/29/24 20:56 Atorvastatin 40 Mg Tablet PO 40 mg HS KASIE Administration Bisacodyl 10 mg 11/29/24 19:24 Bisacodyl 10 Mg Suppository RECTAL DAILY PRN Constipation Carvedilol 12.5 mg 11/30/24 09:00 11/30/24 08:43 Carvedilol 12.5 Mg Tablet PO 12.5 mg Q12HR KASIE Administration Dextrose 12.5 gm 11/29/24 14:20 Dextrose 50% 25 Gm/50 Ml Syringe IV PUSH PRN PRN Hypoglycemia Protocol Docusate Sodium 100 mg 11/29/24 17:00 11/30/24 08:43 Docusate Sodium 100 Mg Capsule PO 100 mg BID KASIE Administration Enoxaparin Sodium 40 mg 11/30/24 09:00 11/30/24 08:41 Enoxaparin 40 Mg/0.4 Ml Syringe SUB-Q 40 mg DAILY KASIE Administration Furosemide 40 mg 11/30/24 09:00 11/30/24 08:44 Furosemide Inj 40 Mg/4 Ml Vial IV PUSH 40 mg BID KASIE Administration Gabapentin 100 mg 11/30/24 09:00 11/30/24 08:43 Gabapentin 100 Mg Capsule PO 100 mg On Hold: 11/30/24 10:58 TID KASIE Administration Glucagon 1 mg 11/29/24 14:20 Glucagon For Inj 1 Mg Vial IM PRN PRN Hypoglycemia Protocol Glucose 15 gm 11/29/24 14:20 Glucose Oral Gel 15 Gm Of Glucse In 37.5 Gm Tube PO PRN PRN Hypoglycemia Protocol Hydralazine HCl 10 mg 11/30/24 09:00 11/30/24 12:54 Hydralazine 10 Mg Tablet PO 10 mg TID KASIE Administration Ceftriaxone Sodium 1 gm/ 50 mls @ 100 mls/hr 11/30/24 15:00 Sodium Chloride IVPB Q24H KASIE Dextrose 1,000 mls @ 100 mls/hr 11/29/24 14:20 Dextrose 5% 1,000 Ml IVPB PRN PRN Hypoglycemia Protocol Insulin Aspart 2 - 5 units 11/29/24 17:00 11/30/24 12:54 Insulin Aspart (*Bkc) 100 Units/Ml SUB-Q Not Given TIDWM KASIE Protocol Isosorbide Dinitrate 10 mg 11/30/24 09:00 11/30/24 12:54 Isosorbide Dinitrate 10 Mg Tablet PO 10 mg TID KASIE Administration Levothyroxine Sodium 100 mcg 11/30/24 06:30 11/30/24 05:42 Levothyroxine Sodium 100 Mcg Tablet PO 100 mcg DAILY@0630 KASIE Administration Loratadine 10 mg 11/30/24 09:00 11/30/24 08:43 Loratadine 10 Mg Tablet PO 10 mg QAM KASIE Administration Pantoprazole Sodium 40 mg 11/30/24 09:00 11/30/24 08:43 Pantoprazole 40 Mg Tablet PO 40 mg DAILY KAISE Administration Tramadol HCl 50 mg 11/29/24 19:24 11/29/24 23:38 Tramadol Hcl (*Crx) 50 Mg Tablet PO 50 mg On Hold: 11/30/24 10:58 Q6-8H PRN Administration Pain 4-6 Radiology Results: ITS Impressions Chest X-Ray 11/29/24 13:21 IMPRESSION: 1. No acute cardiopulmonary findings given portable technique. Labs Labs: Laboratory Results - last 24 hr 11/29/24 11/29/24 11/29/24 13:16 13:26 15:46 WBC RBC Hgb Hct MCV MCH MCHC RDW Plt Count MPV Immature Gran % (Auto) Neut % (Auto) Lymph % (Auto) [place] % (Auto) Eos % (Auto) Baso % (Auto) Lymph # (Auto) [place] # (Auto) Eos # (Auto) Baso # (Auto) Abs Immat Gran (auto) Absolute Neuts (auto) Absolute Nucleated RBC Nucleated RBC % Sodium Potassium Chloride Carbon Dioxide Anion Gap BUN Creatinine Estim Creat Clear Calc Estimated GFR Glucose POC Capillary Glucose 156 H 179 H Calcium Urine Color Yellow Urine Appearance Turbid H Urine pH 6.5 Ur Specific [place] 1.010 Urine Protein 2+ H Urine Glucose (UA) Negative Urine Ketones Negative Ur Blood (Man) 2+ H Urine Nitrate Negative Urine Bilirubin Negative Urine Urobilinogen 1.0 Add Ur Microanalysis Reviewed Leukocyte Esterase Rfl 3+ H Urine RBC 51-100 H Urine WBC >100 H Ur Squamous Epith Cells Few Urine Bacteria 1+ H Urine Casts 6-10 Hyaline Casts Present Urine Yeast (Budding) Present H 11/29/24 11/29/24 11/30/24 18:28 20:16 04:11 WBC RBC Hgb Hct MCV MCH MCHC RDW Plt Count MPV Immature Gran % (Auto) Neut % (Auto) Lymph % (Auto) [place] % (Auto) Eos % (Auto) Baso % (Auto) Lymph # (Auto) [place] # (Auto) Eos # (Auto) Baso # (Auto) Abs Immat Gran (auto) Absolute Neuts (auto) Absolute Nucleated RBC Nucleated RBC % Sodium 135 L Potassium 4.8 Chloride 103 Carbon Dioxide 21 L Anion Gap 11 BUN 51 H Creatinine 1.45 H Estim Creat Clear Calc 33 Estimated GFR 36 L Glucose 79 POC Capillary Glucose 139 H 117 H Calcium 8.1 L Urine Color Urine Appearance Urine pH Ur Specific [place] Urine Protein Urine Glucose (UA) Urine Ketones Ur Blood (Man) Urine Nitrate Urine Bilirubin Urine Urobilinogen Add Ur Microanalysis Leukocyte Esterase Rfl Urine RBC Urine WBC Ur Squamous Epith Cells Urine Bacteria Urine Casts Hyaline Casts Urine Yeast (Budding) 11/30/24 11/30/24 11/30/24 06:10 07:23 11:44 WBC 4.4 L RBC 2.65 L Hgb 8.5 L Hct 26.3 L MCV 99.2 MCH 32.1 MCHC 32.3 RDW 17.7 H Plt Count 124 L MPV 10.1 Immature Gran % (Auto) 0.2 Neut % (Auto) 68.8 Lymph % (Auto) 19.3 [place] % (Auto) 8.0 Eos % (Auto) 2.8 Baso % (Auto) 0.9 Lymph # (Auto) 0.84 L [place] # (Auto) 0.4 Eos # (Auto) 0.1 Baso # (Auto) 0.0 Abs Immat Gran (auto) 0.01 Absolute Neuts (auto) 3.0 Absolute Nucleated RBC 0.000 Nucleated RBC % 0.0 Sodium Potassium Chloride Carbon Dioxide Anion Gap BUN Creatinine Estim Creat Clear Calc Estimated GFR Glucose POC Capillary Glucose 71 69 Calcium Urine Color Urine Appearance Urine pH Ur Specific [place] Urine Protein Urine Glucose (UA) Urine Ketones Ur Blood (Man) Urine Nitrate Urine Bilirubin Urine Urobilinogen Add Ur Microanalysis Leukocyte Esterase Rfl Urine RBC Urine WBC Ur Squamous Epith Cells Urine Bacteria Urine Casts Hyaline Casts Urine Yeast (Budding)
[2024-11-30 13:42] LABS: Creatine Kinase 94 U/L (30-135)
[2024-11-30] MEDS: cefTRIAXone 1 GM in SODIUM CHLORIDE 0.9% IV 50 ML 100 ML IVPB (15:04)
[2024-11-30] MEDS: ATORVASTATIN 40 MG TABLET PO (20:33)
[2024-12-01] VITALS (8 sets, daily range): BP systolic 109–160; BP diastolic 32–71; PULSE 66–73; RESP 16–18; TEMP 36.4–36.7; O2SAT 95–100
[2024-12-01 04:38] LABS: Hematocrit 27.5 % (37.0-47.0); Hemoglobin 8.6 g/dL (12.0-15.0); Immature Granulocyte Percent A 0.3 % (0-0.5); Immature Platelet Fraction Pct 4.7 % (0.9-11.2); Lymphocytes Absolute Auto 0.91 K/mm3 (0.9-3.2); Mean Corpuscular HGB Conc 31.3 g/dl (32-36); Mean Corpuscular Hemoglobin 31.6 pg (26-34); Mean Corpuscular Volume 101.1 fl (80-100); Nucleated Red Blood Cells Absolute Auto 0.000 K/mm3 (0.0-0.012); Nucleated Red Blood Cells Perc 0.0 % (0.0-0.2); Platelet Count Result 103 k/mm3 (150-375); Red Blood Count 2.72 M/mm3 (4.2-5.4); White Blood Count 3.9 K/mm3 (4.5-10.0)
[2024-12-01 04:58] LABS: Alanine Aminotransferase 8 U/L (6-35); Albumin Level 3.1 g/dL (3.5-5.1); Alkaline Phosphatase 43 U/L (38-126); Anion Gap 7 mmol/L (4-12); Aspartate Amino Transferase 26 U/L (14-36); Bilirubin,Total 0.6 mg/dL (0.2-1.3); Blood Urea Nitrogen 48 mg/dL (7-17); Calcium 7.9 mg/dL (8.4-10.2); Carbon Dioxide 25 mmol/L (22-30); Chloride 102 mmol/L (98-107); Estimated CRCL calculation 34 ml/min; Estimated Glomerular Filt Rate 38; Glucose 89 mg/dL (65-110); Magnesium 1.6 mg/dL (1.6-2.3); Potassium 3.9 mmol/L (3.4-5.0); Sodium 134 mmol/L (137-145); Total Protein 6.4 g/dL (6.3-8.2)
[2024-12-01] MEDS: LEVOTHYROXINE SODIUM 100 MCG TABLET PO (05:48)
[2024-12-01] MEDS: ISOSORBIDE DINITRATE 10 MG TABLET PO ×3 (08:55→18:04)
[2024-12-01] MEDS: PANTOPRAZOLE 40 MG TABLET PO (08:56)
[2024-12-01] MEDS: LORATADINE 10 MG TABLET PO (08:56)
[2024-12-01] MEDS: FUROSEMIDE 40 MG TABLET PO (08:56)
[2024-12-01] MEDS: ENOXAPARIN 40 MG/0.4 ML SYRINGE SUB-Q (09:03)
--- NOTE | 2024-12-01 12:07 | PM.IMPN ---
Progress Note: A&P Assessment and Plan (1) Catheter-associated urinary tract infection: Qualifiers: Indwelling urinary catheter type: indwelling urethral catheter Encounter type: initial encounter Qualified Code(s): T83.511A - Infection and inflammatory reaction due to indwelling urethral catheter, initial encounter; N39.0 - Urinary tract infection, site not specified Code(s): T83.511A - Infection and inflammatory reaction due to indwelling urethral catheter, initial encounter; N39.0 - Urinary tract infection, site not specified Status: Acute (2) CHF exacerbation: Code(s): I50.9 - Heart failure, unspecified Status: Acute (3) Acute hyperkalemia: Code(s): E87.5 - Hyperkalemia Status: Acute (4) Hypertension: Code(s): I10 - Essential (primary) hypertension Status: Acute (5) Type 2 diabetes mellitus: Code(s): E11.9 - Type 2 diabetes mellitus without complications Status: Acute (6) CKD (chronic kidney disease) stage 3, GFR 30-59 ml/min: Code(s): N18.30 - Chronic kidney disease, stage 3 unspecified Status: Acute Plan 69-year-old female patient with past medical history of CKD, hypertension, thyroid cancer, chronic Kaplan, systolic and diastolic congestive heart failure, and bilateral above the knee amputations presents the hospital with elevated BNP. Patient had routine labs taking at her nursing facility where her BNP was 22,000. Patient also has twitching that started few days ago. She denies nausea, vomiting, shortness of breath, increased swelling. Lab work here shows hemoglobin of 10.4, potassium of 5.8, BUN of 51, creatinine 1.56, glucose of 48, lactic acid of 1.3, AST of 39, CRP of 2.3, BNP over 30,000, UA shows negative nitrates, 3+ leukocyte esterase, 50-100 rbc's 100 wbc's, 1+ bacteria and 1+ yeast. EKG shows sinus rhythm with first-degree AV block. Chest x-ray showed no acute cardiopulmonary findings. Twitching unclear etiology? Mild serotonin syndrome. On tramadol which will be held. Also hold her gabapentin. Electrolytes has now normalized however twitching still present on evaluation. CK level came back normal. Will also be related to hypoglycemia which has now resolved. Twitching has improved today. Catheter associated UTI Kaplan exchanged in the ER on IV Rocephin follow [place] [id number] colony-forming units. Congestive heart failure not in acute exacerbation the a BNP over 30,000 cardiology consulted echo pending. Received IV Lasix continue diuresis as ordered +restriction. Chronic systolic diastolic with EF 25-30% on 07/05. On carvedilol isosorbide dinitrate and hydralazine Hyperkalemia treated and resolved with albuterol Lasix sodium bicarb and Lokelma Hypertension home medication Type 2 diabetes mellitus with hypoglycemia not on any medications at home will continue to monitor which has now resolved. On SSI CKD stage 3 continue to monitor renal function Hypothyroidism on levothyroxine Hyperlipidemia on atorvastatin Constipation DVT prophylaxis Lovenox Code status do not resuscitate Subjective Date/time seen: 12/01/24 12:07 Interval history: No overnight events. Discussed with nursing staff. Labs reviewed. Denies any chest pain or shortness of breath. Review of Systems Review of Systems: 12 systems were reviewed and are negative except for as per HPI. Exam Narrative: General: well appearing, appears stated age. HEENT: normocephalic, atraumatic. Mucous membranes moist. EOMI, PERRLA Respiratory: clear to ascultation bilaterally. No rales/rhonic/wheezes. Cardiovascular: Regular rate and rhythm, normal S1-S2 upon ascultation. No murmur rubs or gallops Abdomen: Soft, round, no pulsatile masses, nondistended and nontender. No rebound, no guarding. Extremities: No cyanosis, clubbing, Bilateral [id number] amputation +2 edema Neuro: Alert and orientated x 4. PERRLA. Cranial nerves 2-12 intact without focal deficit. Skin: Warm, dry, and intact, without rash, erythema, or lesion. Psych: pleasant, cooperative, normal speech, normal affect, no hallucinations, no dysarthia Objective Data Vital Signs Vital Signs: Vital Signs - 24 hr 11/30/24 14:00 11/30/24 15:55 11/30/24 16:00 Temperature 98.1 F Pulse Rate 74 76 Respiratory Rate 20 Blood Pressure 155/129 H Pulse Oximetry 96 Oxygen Delivery Room Air 11/30/24 16:00 11/30/24 20:00 11/30/24 20:28 Temperature Pulse Rate 75 80 Respiratory Rate Blood Pressure 153/95 H Pulse Oximetry 94 94 Oxygen Delivery Room Air 11/30/24 20:33 11/30/24 23:54 12/01/24 08:00 Temperature 98.2 F 97.8 F Pulse Rate 80 75 67 Respiratory Rate 20 18 Blood Pressure 159/102 H 160/36 H Pulse Oximetry 97 98 Oxygen Delivery 12/01/24 08:00 12/01/24 08:24 12/01/24 08:56 Temperature Pulse Rate 67 Respiratory Rate Blood Pressure 111/32 L Pulse Oximetry Oxygen Delivery Room Air 12/01/24 12:03 Temperature Pulse Rate Respiratory Rate Blood Pressure 128/71 Pulse Oximetry 97 Oxygen Delivery Intake/Output Intake/Output: Intake & Output 11/28/24 11/29/24 11/30/24 12/01/24 23:59 23:59 23:59 23:59 Intake Total 50 830 400 Output Total 800 1850 900 Balance -750 -1020 -500 Meds/Results Medications: Active Medications Generic Name Dose Route Start Last Admin Trade Name Freq PRN Reason Stop Dose Admin Acetaminophen 650 mg 11/29/24 14:20 Acetaminophen 325 Mg Tablet PO Q4H PRN Mild Pain (1-3) or Fever Atorvastatin Calcium 40 mg 11/29/24 21:00 11/30/24 20:33 Atorvastatin 40 Mg Tablet PO 40 mg HS KASIE Administration Bisacodyl 10 mg 11/29/24 19:24 Bisacodyl 10 Mg Suppository RECTAL DAILY PRN Constipation Carvedilol 12.5 mg 11/30/24 09:00 12/01/24 08:56 Carvedilol 12.5 Mg Tablet PO 12.5 mg Q12HR KASIE Administration Dextrose 12.5 gm 11/29/24 14:20 Dextrose 50% 25 Gm/50 Ml Syringe IV PUSH PRN PRN Hypoglycemia Protocol Docusate Sodium 100 mg 11/30/24 17:49 Docusate Sodium 100 Mg Capsule PO BID PRN constipation Enoxaparin Sodium 40 mg 11/30/24 09:00 12/01/24 09:03 Enoxaparin 40 Mg/0.4 Ml Syringe SUB-Q 40 mg DAILY KASIE Administration Furosemide 40 mg 12/01/24 09:00 12/01/24 08:56 Furosemide 40 Mg Tablet PO 40 mg DAILY KASIE Administration Gabapentin 100 mg 11/30/24 09:00 11/30/24 08:43 Gabapentin 100 Mg Capsule PO 100 mg On Hold: 11/30/24 10:58 TID KASIE Administration Glucagon 1 mg 11/29/24 14:20 Glucagon For Inj 1 Mg Vial IM PRN PRN Hypoglycemia Protocol Glucose 15 gm 11/29/24 14:20 Glucose Oral Gel 15 Gm Of Glucse In 37.5 Gm Tube PO PRN PRN Hypoglycemia Protocol Hydralazine HCl 10 mg 11/30/24 09:00 12/01/24 08:55 Hydralazine 10 Mg Tablet PO 10 mg TID KASIE Administration Ceftriaxone Sodium 1 gm/ 50 mls @ 100 mls/hr 11/30/24 15:00 11/30/24 15:34 Sodium Chloride IVPB Infused Q24H KASIE Infusion Dextrose 1,000 mls @ 100 mls/hr 11/29/24 14:20 Dextrose 5% 1,000 Ml IVPB PRN PRN Hypoglycemia Protocol Insulin Aspart 2 - 5 units 11/29/24 17:00 12/01/24 08:54 Insulin Aspart (*Bkc) 100 Units/Ml SUB-Q Not Given TIDWM [facility] Protocol Isosorbide Dinitrate 10 mg 11/30/24 09:00 12/01/24 08:55 Isosorbide Dinitrate 10 Mg Tablet PO 10 mg TID KASIE Administration Levothyroxine Sodium 100 mcg 11/30/24 06:30 12/01/24 05:48 Levothyroxine Sodium 100 Mcg Tablet PO 100 mcg DAILY@0630 KASIE Administration Loratadine 10 mg 11/30/24 09:00 12/01/24 08:56 Loratadine 10 Mg Tablet PO 10 mg QAM KASIE Administration Pantoprazole Sodium 40 mg 11/30/24 09:00 12/01/24 08:56 Pantoprazole 40 Mg Tablet PO 40 mg DAILY KASIE Administration Radiology Results: ITS Impressions Chest X-Ray 11/29/24 13:21 IMPRESSION: 1. No acute cardiopulmonary findings given portable technique. Labs Labs: Laboratory Results - last 24 hr 11/30/24 11/30/24 11/30/24 04:01 16:03 19:35 WBC RBC Hgb Hct MCV MCH MCHC RDW Plt Count MPV Immature Gran % (Auto) Neut % (Auto) Lymph % (Auto) [place] % (Auto) Eos % (Auto) Baso % (Auto) Lymph # (Auto) [place] # (Auto) Eos # (Auto) Baso # (Auto) Abs Immat Gran (auto) Absolute Neuts (auto) Absolute Nucleated RBC Nucleated RBC % % Immature Plt Fraction Sodium Potassium Chloride Carbon Dioxide Anion Gap BUN Creatinine Estim Creat Clear Calc Estimated GFR Glucose POC Capillary Glucose 80 86 Calcium Magnesium Total Bilirubin AST ALT Alkaline Phosphatase Total Creatine Kinase 94 Total Protein Albumin 12/01/24 12/01/24 12/01/24 03:57 08:27 11:27 WBC 3.9 L RBC 2.72 L Hgb 8.6 L Hct 27.5 L MCV 101.1 H MCH 31.6 MCHC 31.3 L RDW 17.8 H Plt Count 103 L MPV 11.3 H Immature Gran % (Auto) 0.3 Neut % (Auto) 62.1 Lymph % (Auto) 23.6 [place] % (Auto) 8.0 Eos % (Auto) 5.2 H Baso % (Auto) 0.8 Lymph # (Auto) 0.91 [place] # (Auto) 0.3 Eos # (Auto) 0.2 Baso # (Auto) 0.0 Abs Immat Gran (auto) 0.01 Absolute Neuts (auto) 2.4 Absolute Nucleated RBC 0.000 Nucleated RBC % 0.0 % Immature Plt Fraction 4.7 Sodium 134 L Potassium 3.9 Chloride 102 Carbon Dioxide 25 Anion Gap 7 BUN 48 H Creatinine 1.39 H Estim Creat Clear Calc 34 Estimated GFR 38 L Glucose 89 POC Capillary Glucose 79 113 H Calcium 7.9 L Magnesium 1.6 Total Bilirubin 0.6 AST 26 ALT 8 Alkaline Phosphatase 43 Total Creatine Kinase Total Protein 6.4 Albumin 3.1 L
--- NOTE | 2024-12-01 16:15 | PC.NURSE ---
This patient, Iris Pascual, was received from IMU on 12/01/24 at 1550. Patient/family oriented to unit policies and routines
[2024-12-01] MEDS: ATORVASTATIN 40 MG TABLET PO (20:36)
[2024-12-01] MEDS: CEPHALEXIN 500 MG CAPSULE PO (20:36)
[2024-12-02] VITALS (7 sets, daily range): BP systolic 119–163; BP diastolic 64–89; PULSE 71–90; RESP 16–20; TEMP 36–36.9; O2SAT 95–99
[2024-12-02] MEDS: LEVOTHYROXINE SODIUM 100 MCG TABLET PO (05:37)
[2024-12-02 06:40] LABS: Hematocrit 27.5 % (37.0-47.0); Hemoglobin 8.7 g/dL (12.0-15.0); Immature Granulocyte Percent A 0.3 % (0-0.5); Lymphocytes Absolute Auto 0.94 K/mm3 (0.9-3.2); Mean Corpuscular HGB Conc 31.6 g/dl (32-36); Mean Corpuscular Hemoglobin 31.2 pg (26-34); Mean Corpuscular Volume 98.6 fl (80-100); Nucleated Red Blood Cells Absolute Auto 0.000 K/mm3 (0.0-0.012); Nucleated Red Blood Cells Perc 0.0 % (0.0-0.2); Platelet Count Result 136 k/mm3 (150-375); Red Blood Count 2.79 M/mm3 (4.2-5.4); White Blood Count 3.8 K/mm3 (4.5-10.0)
[2024-12-02 07:16] LABS: Alanine Aminotransferase 10 U/L (6-35); Albumin Level 3.2 g/dL (3.5-5.1); Alkaline Phosphatase 39 U/L (38-126); Anion Gap 11 mmol/L (4-12); Aspartate Amino Transferase 25 U/L (14-36); Bilirubin,Total 0.6 mg/dL (0.2-1.3); Blood Urea Nitrogen 39 mg/dL (7-17); Calcium 8.2 mg/dL (8.4-10.2); Carbon Dioxide 26 mmol/L (22-30); Chloride 100 mmol/L (98-107); Estimated CRCL calculation 36 ml/min; Estimated Glomerular Filt Rate 40; Glucose 106 mg/dL (65-110); Magnesium 1.5 mg/dL (1.6-2.3); Potassium 3.2 mmol/L (3.4-5.0); Sodium 137 mmol/L (137-145); Total Protein 6.7 g/dL (6.3-8.2)
[2024-12-02] MEDS: ISOSORBIDE DINITRATE 10 MG TABLET PO ×3 (08:40→17:11)
[2024-12-02] MEDS: PANTOPRAZOLE 40 MG TABLET PO (08:40)
[2024-12-02] MEDS: CEPHALEXIN 500 MG CAPSULE PO ×2 (08:40→20:52)
[2024-12-02] MEDS: FUROSEMIDE 40 MG TABLET PO (08:40)
[2024-12-02] MEDS: LORATADINE 10 MG TABLET PO (08:40)
[2024-12-02] MEDS: ACETAMINOPHEN 325 MG TABLET 650 MG PO (08:42)
[2024-12-02] MEDS: ENOXAPARIN 40 MG/0.4 ML SYRINGE SUB-Q (08:50)
[2024-12-02] MEDS: POTASSIUM CHLORIDE 20 MEQ ER TABLET 40 MEQ PO (11:03)
--- NOTE | 2024-12-02 11:51 | PM.IMPN ---
Progress Note: A&P Assessment and Plan (1) Catheter-associated urinary tract infection: Qualifiers: Indwelling urinary catheter type: indwelling urethral catheter Encounter type: initial encounter Qualified Code(s): T83.511A - Infection and inflammatory reaction due to indwelling urethral catheter, initial encounter; N39.0 - Urinary tract infection, site not specified Code(s): T83.511A - Infection and inflammatory reaction due to indwelling urethral catheter, initial encounter; N39.0 - Urinary tract infection, site not specified Status: Acute (2) CHF exacerbation: Code(s): I50.9 - Heart failure, unspecified Status: Acute (3) Acute hyperkalemia: Code(s): E87.5 - Hyperkalemia Status: Acute (4) Hypertension: Code(s): I10 - Essential (primary) hypertension Status: Acute (5) Type 2 diabetes mellitus: Code(s): E11.9 - Type 2 diabetes mellitus without complications Status: Acute (6) CKD (chronic kidney disease) stage 3, GFR 30-59 ml/min: Code(s): N18.30 - Chronic kidney disease, stage 3 unspecified Status: Acute Plan 69-year-old female patient with past medical history of CKD, hypertension, thyroid cancer, chronic Kaplan, systolic and diastolic congestive heart failure, and bilateral above the knee amputations presents the hospital with elevated BNP. Patient had routine labs taking at her nursing facility where her BNP was 22,000. Patient also has twitching that started few days ago. She denies nausea, vomiting, shortness of breath, increased swelling. Lab work here shows hemoglobin of 10.4, potassium of 5.8, BUN of 51, creatinine 1.56, glucose of 48, lactic acid of 1.3, AST of 39, CRP of 2.3, BNP over 30,000, UA shows negative nitrates, 3+ leukocyte esterase, 50-100 rbc's 100 wbc's, 1+ bacteria and 1+ yeast. EKG shows sinus rhythm with first-degree AV block. Chest x-ray showed no acute cardiopulmonary findings. Twitching unclear etiology? Mild serotonin syndrome. On tramadol which will be held. Also hold her gabapentin. Electrolytes has now normalized however twitching still present on evaluation. CK level came back normal. Will also be related to hypoglycemia which has now resolved. Twitching has improved now. Catheter associated UTI Kaplan exchanged in the ER on IV Rocephin follow urine culture [place] [phone] colony-forming units. Congestive heart failure not in acute exacerbation the a BNP over 30,000 cardiology consulted echo pending. Received IV Lasix continue diuresis as ordered +restriction. Chronic systolic diastolic with EF 25-30% on 07/05. On carvedilol isosorbide dinitrate and hydralazine Hyperkalemia treated and resolved with albuterol Lasix sodium bicarb and Lokelma Hypertension home medication Type 2 diabetes mellitus with hypoglycemia not on any medications at home will continue to monitor which has now resolved. On SSI CKD stage 3 continue to monitor renal function Hypothyroidism on levothyroxine Hyperlipidemia on atorvastatin Abdominal lump: Most likely she had seroma from previous scans. Will rescanned today Constipation DVT prophylaxis Lovenox Code status do not resuscitate Subjective Date/time seen: 12/02/24 11:51 Interval history: No overnight events. No new complaints. Review of Systems Review of Systems: All systems reviewed & are unremarkable except as noted in HPI and below Exam Narrative: General: well appearing, appears stated age. HEENT: normocephalic, atraumatic. Mucous membranes moist. EOMI, PERRLA Respiratory: clear to ascultation bilaterally. No rales/rhonic/wheezes. Cardiovascular: Regular rate and rhythm, normal S1-S2 upon ascultation. No murmur rubs or gallops Abdomen: Soft, round, no pulsatile masses, nondistended and nontender. No rebound, no guarding. Extremities: No cyanosis, clubbing, Bilateral [id number] amputation +2 edema Neuro: Alert and orientated x 4. PERRLA. Cranial nerves 2-12 intact without focal deficit. Skin: Warm, dry, and intact, without rash, erythema, or lesion. Psych: pleasant, cooperative, normal speech, normal affect, no hallucinations, no dysarthia Objective Data Vital Signs Vital Signs: Vital Signs - 24 hr 12/01/24 12:03 12/01/24 16:00 12/01/24 20:36 Temperature 98.0 F Pulse Rate 66 73 Respiratory Rate 16 Blood Pressure 128/71 133/62 Pulse Oximetry 97 100 Oxygen Delivery Fraction of Inspired Oxygen 12/01/24 20:40 12/01/24 20:40 12/01/24 23:39 Temperature 97.6 F Pulse Rate 73 73 Respiratory Rate 16 16 Blood Pressure 109/61 Pulse Oximetry 100 100 95 Oxygen Delivery Room Air Room Air Fraction of Inspired Oxygen 12/02/24 00:00 12/02/24 07:00 12/02/24 08:00 Temperature 98.3 F 98.5 F 96.8 F L Pulse Rate 71 71 74 Respiratory Rate 16 18 18 Blood Pressure 119/71 139/89 139/89 Pulse Oximetry 96 96 98 Oxygen Delivery Fraction of Inspired Oxygen 12/02/24 08:40 12/02/24 08:43 Temperature Pulse Rate 73 Respiratory Rate Blood Pressure Pulse Oximetry Oxygen Delivery Room Air Fraction of Inspired Oxygen Intake/Output Intake/Output: Intake & Output 11/29/24 11/30/24 12/01/24 12/02/24 23:59 23:59 23:59 23:59 Intake Total 50 830 1040 740 Output Total 800 1850 2300 400 Balance -353 -8752 -5873 340 Meds/Results Medications: Active Medications Generic Name Dose Route Start Last Admin Trade Name Freq PRN Reason Stop Dose Admin Acetaminophen 650 mg 11/29/24 14:20 12/02/24 08:42 Acetaminophen 325 Mg Tablet PO 650 mg Q4H PRN Administration Mild Pain (1-3) or Fever Atorvastatin Calcium 40 mg 11/29/24 21:00 12/01/24 20:36 Atorvastatin 40 Mg Tablet PO 40 mg HS KASIE Administration Bisacodyl 10 mg 11/29/24 19:24 Bisacodyl 10 Mg Suppository RECTAL DAILY PRN Constipation Carvedilol 12.5 mg 11/30/24 09:00 12/02/24 08:43 Carvedilol 12.5 Mg Tablet PO 12.5 mg Q12HR KASIE Administration Cephalexin HCl 500 mg 12/01/24 21:00 12/02/24 08:40 Cephalexin 500 Mg Capsule PO 500 mg Q12HR KASIE Administration Dextrose 12.5 gm 11/29/24 14:20 Dextrose 50% 25 Gm/50 Ml Syringe IV PUSH PRN PRN Hypoglycemia Protocol Docusate Sodium 100 mg 11/30/24 17:49 Docusate Sodium 100 Mg Capsule PO BID PRN constipation Enoxaparin Sodium 40 mg 11/30/24 09:00 12/02/24 08:50 Enoxaparin 40 Mg/0.4 Ml Syringe SUB-Q 40 mg DAILY KASIE Administration Furosemide 40 mg 12/01/24 09:00 12/02/24 08:40 Furosemide 40 Mg Tablet PO 40 mg DAILY KASIE Administration Gabapentin 100 mg 11/30/24 09:00 11/30/24 08:43 Gabapentin 100 Mg Capsule PO 100 mg On Hold: 11/30/24 10:58 TID KASIE Administration Glucagon 1 mg 11/29/24 14:20 Glucagon For Inj 1 Mg Vial IM PRN PRN Hypoglycemia Protocol Glucose 15 gm 11/29/24 14:20 Glucose Oral Gel 15 Gm Of Glucse In 37.5 Gm Tube PO PRN PRN Hypoglycemia Protocol Hydralazine HCl 10 mg 11/30/24 09:00 12/02/24 08:40 Hydralazine 10 Mg Tablet PO 10 mg TID KASIE Administration Dextrose 1,000 mls @ 100 mls/hr 11/29/24 14:20 Dextrose 5% 1,000 Ml IVPB PRN PRN Hypoglycemia Protocol Insulin Aspart 2 - 5 units 11/29/24 17:00 12/02/24 08:40 Insulin Aspart (*Bkc) 100 Units/Ml SUB-Q Not Given TIDWM KASIE Protocol Isosorbide Dinitrate 10 mg 11/30/24 09:00 12/02/24 08:40 Isosorbide Dinitrate 10 Mg Tablet PO 10 mg TID KASIE Administration Levothyroxine Sodium 100 mcg 11/30/24 06:30 12/02/24 05:37 Levothyroxine Sodium 100 Mcg Tablet PO 100 mcg DAILY@0630 KASIE Administration Loratadine 10 mg 11/30/24 09:00 12/02/24 08:40 Loratadine 10 Mg Tablet PO 10 mg QAM KASIE Administration Pantoprazole Sodium 40 mg 11/30/24 09:00 12/02/24 08:40 Pantoprazole 40 Mg Tablet PO 40 mg DAILY KASIE Administration Radiology Results: ITS Impressions Chest X-Ray 11/29/24 13:21 IMPRESSION: 1. No acute cardiopulmonary findings given portable technique. Labs Labs: Laboratory Results - last 24 hr 12/01/24 12/01/24 12/02/24 11:27 17:57 05:51 WBC 3.8 L RBC 2.79 L Hgb 8.7 L Hct 27.5 L MCV 98.6 MCH 31.2 MCHC 31.6 L RDW 17.9 H Plt Count 136 L MPV 10.2 Immature Gran % (Auto) 0.3 Neut % (Auto) 58.7 Lymph % (Auto) 25.1 [place] % (Auto) 10.1 H Eos % (Auto) 4.5 H Baso % (Auto) 1.3 H Lymph # (Auto) 0.94 [place] # (Auto) 0.4 Eos # (Auto) 0.2 Baso # (Auto) 0.1 Abs Immat Gran (auto) 0.01 Absolute Neuts (auto) 2.2 Absolute Nucleated RBC 0.000 Nucleated RBC % 0.0 Sodium 137 Potassium 3.2 L Chloride 100 Carbon Dioxide 26 Anion Gap 11 BUN 39 H Creatinine 1.32 H Estim Creat Clear Calc 36 Estimated GFR 40 L Glucose 106 POC Capillary Glucose 113 H 118 H Calcium 8.2 L Magnesium 1.5 L Total Bilirubin 0.6 AST 25 ALT 10 Alkaline Phosphatase 39 Total Protein 6.7 Albumin 3.2 L 12/02/24 12/02/24 07:51 11:25 WBC RBC Hgb Hct MCV MCH MCHC RDW Plt Count MPV Immature Gran % (Auto) Neut % (Auto) Lymph % (Auto) [place] % (Auto) Eos % (Auto) Baso % (Auto) Lymph # (Auto) [place] # (Auto) Eos # (Auto) Baso # (Auto) Abs Immat Gran (auto) Absolute Neuts (auto) Absolute Nucleated RBC Nucleated RBC % Sodium Potassium Chloride Carbon Dioxide Anion Gap BUN Creatinine Estim Creat Clear Calc Estimated GFR Glucose POC Capillary Glucose 105 108 H Calcium Magnesium Total Bilirubin AST ALT Alkaline Phosphatase Total Protein Albumin
[2024-12-02] MEDS: MAGNESIUM SULF 1 GM/D5W 100 ML 1 GM/100 ML BAG IVPB (12:00)
[2024-12-02] MEDS: FUROSEMIDE INJ 40 MG/4 ML VIAL IV PUSH (17:10)
[2024-12-02] MEDS: ATORVASTATIN 40 MG TABLET PO (20:10)
[2024-12-03] MEDS: LEVOTHYROXINE SODIUM 100 MCG TABLET PO (05:33)
[2024-12-03 05:41] VITALS: BP 93/66; PULSE 76; RESP 20; TEMP 36.4; O2SAT 97
[2024-12-03 06:46] LABS: Hematocrit 32.5 % (37.0-47.0); Hemoglobin 10.3 g/dL (12.0-15.0); Immature Granulocyte Percent A 0.6 % (0-0.5); Lymphocytes Absolute Auto 1.22 K/mm3 (0.9-3.2); Mean Corpuscular HGB Conc 31.7 g/dl (32-36); Mean Corpuscular Hemoglobin 31.8 pg (26-34); Mean Corpuscular Volume 100.3 fl (80-100); Nucleated Red Blood Cells Absolute Auto 0.000 K/mm3 (0.0-0.012); Nucleated Red Blood Cells Perc 0.0 % (0.0-0.2); Platelet Count Result 148 k/mm3 (150-375); Red Blood Count 3.24 M/mm3 (4.2-5.4); White Blood Count 4.7 K/mm3 (4.5-10.0)
[2024-12-03 07:09] LABS: Alanine Aminotransferase 12 U/L (6-35); Albumin Level 3.5 g/dL (3.5-5.1); Alkaline Phosphatase 54 U/L (38-126); Anion Gap 10 mmol/L (4-12); Aspartate Amino Transferase 27 U/L (14-36); Bilirubin,Total 0.8 mg/dL (0.2-1.3); Blood Urea Nitrogen 37 mg/dL (7-17); Calcium 8.3 mg/dL (8.4-10.2); Carbon Dioxide 28 mmol/L (22-30); Chloride 98 mmol/L (98-107); Estimated CRCL calculation 34 ml/min; Estimated Glomerular Filt Rate 40; Glucose 157 mg/dL (65-110); Magnesium 1.8 mg/dL (1.6-2.3); Potassium 3.7 mmol/L (3.4-5.0); Sodium 136 mmol/L (137-145); Total Protein 7.4 g/dL (6.3-8.2)
[2024-12-03 08:26] VITALS: PULSE 108
[2024-12-03] MEDS: ISOSORBIDE DINITRATE 10 MG TABLET PO ×3 (08:26→18:13)
[2024-12-03] MEDS: FUROSEMIDE 40 MG TABLET PO (08:26)
[2024-12-03] MEDS: CEPHALEXIN 500 MG CAPSULE PO ×2 (08:28→20:39)
[2024-12-03] MEDS: ENOXAPARIN 40 MG/0.4 ML SYRINGE SUB-Q (08:28)
[2024-12-03] MEDS: PANTOPRAZOLE 40 MG TABLET PO (08:28)
[2024-12-03] MEDS: LORATADINE 10 MG TABLET PO (08:28)
--- NOTE | 2024-12-03 10:15 | P.PNCA_ITS ---
Progress Note: A&P Assessment and Plan (1) Combined systolic and diastolic congestive heart failure: Qualifiers: Heart failure chronicity: acute on chronic Qualified Code(s): I50.43 - Acute on chronic combined systolic (congestive) and diastolic (congestive) heart failure Code(s): I50.40 - Unspecified combined systolic (congestive) and diastolic (congestive) heart failure Status: Acute Plan This is a 69-year-old lady who has severe left ventricular systolic dysfunction. Repeat echo demonstrates an unchanged EF of 25-30% with biventricular systolic dysfunction and moderate tricuspid insufficiency. Because of her chronic kidney disease her medical regimen consists of the beta leah, hydralazine and isos orbide. She is currently on PO lasix and did receive a dose of IV lasix yesterday. Her abdomen appears distended her CT yesterday does demonstrate moderate anasarca. Will repeat CXR this am as some SOB with lying flat, if congestion may benefit from IV diuresis. She appears to be hemodynamically stable. UTI-management per primary team. CT 12/02 did demonstrate lt sided hydronephrosis and left sided hydroureter Loculated fluid collection of the anterior abominal/pelvic wall (9.7 7.9x 14.7cm) Management per primary team Hypertension. reasonable control will monitor Diabetes. Glycemic control per primary team PVD. with bilateral AKA Subjective Date/time seen: 12/03/24 10:15 Interval history: 12/03/24. Patient is sitting up in bed. She reports some abdominal distension and shortness of breath when lying flat. No chest pain or pressure. Review of Systems Review of Systems: All systems reviewed & are unremarkable except as noted in HPI and below Exam Const: Other: Very pleasant black female appearing about her stated age resting in bed, no distress HENMT: Mouth: Yes moist mucous membranes Eyes: Sclera: sclerae normal Neck: Neck: supple Resp: Effort & Inspection: normal respiratory effort Auscultation: clear to auscultation bilaterally Cardio: Rate: regular rate Rhythm: regular rhythm Other: PMI is not palpable GI: Auscultation: normal bowel sounds Skin: General skin exam: normal color Neuro: Other: Alert and responsive Extrem: Other: Bilateral [id number] amputee Objective Data Vital Signs Vital Signs: Vital Signs - 24 hr 12/02/24 16:00 12/02/24 20:10 12/02/24 22:00 Temperature 36.4 C 36.4 C Pulse Rate 77 90 77 Respiratory Rate 18 20 Blood Pressure 163/70 H 158/64 H Pulse Oximetry 99 95 12/03/24 05:41 12/03/24 08:26 Temperature 36.4 C Pulse Rate 76 108 H Respiratory Rate 20 Blood Pressure 93/66 L Pulse Oximetry 97 Intake/Output Intake/Output: Intake & Output 11/30/24 12/01/24 12/02/24 12/03/24 23:59 23:59 23:59 23:59 Intake Total 830 1040 1520 490 Output Total 1850 2300 1150 1050 Balance -1020 -1260 370 -969 Meds/Results Medications: Active Medications Generic Name Dose Route Start Last Admin Trade Name Freq PRN Reason Stop Dose Admin Acetaminophen 650 mg 11/29/24 14:20 12/02/24 08:42 Acetaminophen 325 Mg Tablet PO 650 mg Q4H PRN Administration Mild Pain (1-3) or Fever Atorvastatin Calcium 40 mg 11/29/24 21:00 12/02/24 20:10 Atorvastatin 40 Mg Tablet PO 40 mg HS KASIE Administration Bisacodyl 10 mg 11/29/24 19:24 Bisacodyl 10 Mg Suppository RECTAL DAILY PRN Constipation Carvedilol 12.5 mg 11/30/24 09:00 12/03/24 08:26 Carvedilol 12.5 Mg Tablet PO 12.5 mg Q12HR KASIE Administration Cephalexin HCl 500 mg 12/01/24 21:00 12/03/24 08:28 Cephalexin 500 Mg Capsule PO 500 mg Q12HR KASIE Administration Dextrose 12.5 gm 11/29/24 14:20 Dextrose 50% 25 Gm/50 Ml Syringe IV PUSH PRN PRN Hypoglycemia Protocol Docusate Sodium 100 mg 11/30/24 17:49 Docusate Sodium 100 Mg Capsule PO BID PRN constipation Enoxaparin Sodium 40 mg 11/30/24 09:00 12/03/24 08:28 Enoxaparin 40 Mg/0.4 Ml Syringe SUB-Q 40 mg DAILY KASIE Administration Furosemide 40 mg 12/01/24 09:00 12/03/24 08:26 Furosemide 40 Mg Tablet PO 40 mg DAILY KASIE Administration Gabapentin 100 mg 11/30/24 09:00 11/30/24 08:43 Gabapentin 100 Mg Capsule PO 100 mg On Hold: 11/30/24 10:58 TID KASIE Administration Glucagon 1 mg 11/29/24 14:20 Glucagon For Inj 1 Mg Vial IM PRN PRN Hypoglycemia Protocol Glucose 15 gm 11/29/24 14:20 Glucose Oral Gel 15 Gm Of Glucse In 37.5 Gm Tube PO PRN PRN Hypoglycemia Protocol Hydralazine HCl 10 mg 11/30/24 09:00 12/03/24 08:28 Hydralazine 10 Mg Tablet PO 10 mg TID KASIE Administration Dextrose 1,000 mls @ 100 mls/hr 11/29/24 14:20 Dextrose 5% 1,000 Ml IVPB PRN PRN Hypoglycemia Protocol Insulin Aspart 2 - 5 units 11/29/24 17:00 12/03/24 08:25 Insulin Aspart (*Bkc) 100 Units/Ml SUB-Q Not Given TIDWM KASIE Protocol Isosorbide Dinitrate 10 mg 11/30/24 09:00 12/03/24 08:26 Isosorbide Dinitrate 10 Mg Tablet PO 10 mg TID KASIE Administration Levothyroxine Sodium 100 mcg 11/30/24 06:30 12/03/24 05:33 Levothyroxine Sodium 100 Mcg Tablet PO 100 mcg DAILY@0630 KASIE Administration Loratadine 10 mg 11/30/24 09:00 12/03/24 08:28 Loratadine 10 Mg Tablet PO 10 mg QAM KASIE Administration Pantoprazole Sodium 40 mg 11/30/24 09:00 12/03/24 08:28 Pantoprazole 40 Mg Tablet PO 40 mg DAILY KASIE Administration Radiology Results: ITS Impressions Chest X-Ray 11/29/24 13:21 IMPRESSION: 1. No acute cardiopulmonary findings given portable technique. Abdomen/Pelvis CT 12/02/24 14:25 IMPRESSION: 1. Thickening of the zamora of the sigmoid colon and rectum with surrounding fat stranding. The findings may be secondary to proctitis/colitis. Recommend follow- up to resolution to exclude an underlying mass. 2.Small amount of nonspecific fat stranding and fluid scattered throughout the abdomen and pelvis. 3.Moderate left-sided hydronephrosis and left-sided hydroureter. 4.Moderate thickening of the zamora of the bladder. Moderate amount of air in the bladder which may be due to recent instrumentation, however, cystitis is possible. 5.Moderate nonspecific anasarca. 6.There is a 9.7 x 7.9 x 14.7 cm loculated fluid collection along the anterior abdominal/pelvic wall. Labs Labs: Laboratory Results - last 24 hr 12/02/24 12/02/24 12/02/24 11:25 16:38 21:27 WBC RBC Hgb Hct MCV MCH MCHC RDW Plt Count MPV Immature Gran % (Auto) Neut % (Auto) Lymph % (Auto) Morton % (Auto) Eos % (Auto) Baso % (Auto) Lymph # (Auto) Morton # (Auto) Eos # (Auto) Baso # (Auto) Abs Immat Gran (auto) Absolute Neuts (auto) Absolute Nucleated RBC Nucleated RBC % Sodium Potassium Chloride Carbon Dioxide Anion Gap BUN Creatinine Estim Creat Clear Calc Estimated GFR Glucose POC Capillary Glucose 108 H 153 H 195 H Calcium Magnesium Total Bilirubin AST ALT Alkaline Phosphatase Total Protein Albumin 12/03/24 12/03/24 06:14 06:37 WBC 4.7 RBC 3.24 L Hgb 10.3 L Hct 32.5 L MCV 100.3 H MCH 31.8 MCHC 31.7 L RDW 18.2 H Plt Count 148 L MPV 10.6 H Immature Gran % (Auto) 0.6 H Neut % (Auto) 59.6 Lymph % (Auto) 26.1 Morton % (Auto) 8.8 H Eos % (Auto) 3.6 Baso % (Auto) 1.3 H Lymph # (Auto) 1.22 Morton # (Auto) 0.4 Eos # (Auto) 0.2 Baso # (Auto) 0.1 Abs Immat Gran (auto) 0.03 Absolute Neuts (auto) 2.8 Absolute Nucleated RBC 0.000 Nucleated RBC % 0.0 Sodium 136 L Potassium 3.7 Chloride 98 Carbon Dioxide 28 Anion Gap 10 BUN 37 H Creatinine 1.32 H Estim Creat Clear Calc 34 Estimated GFR 40 L Glucose 157 H POC Capillary Glucose 153 H Calcium 8.3 L Magnesium 1.8 Total Bilirubin 0.8 AST 27 ALT 12 Alkaline Phosphatase 54 Total Protein 7.4 Albumin 3.5
--- NOTE | 2024-12-03 12:19 | PM.IMPN ---
Progress Note: A&P Assessment and Plan (1) Catheter-associated urinary tract infection: Qualifiers: Indwelling urinary catheter type: indwelling urethral catheter Encounter type: initial encounter Qualified Code(s): T83.511A - Infection and inflammatory reaction due to indwelling urethral catheter, initial encounter; N39.0 - Urinary tract infection, site not specified Code(s): T83.511A - Infection and inflammatory reaction due to indwelling urethral catheter, initial encounter; N39.0 - Urinary tract infection, site not specified Status: Acute (2) CHF exacerbation: Code(s): I50.9 - Heart failure, unspecified Status: Acute (3) Acute hyperkalemia: Code(s): E87.5 - Hyperkalemia Status: Acute (4) Hypertension: Code(s): I10 - Essential (primary) hypertension Status: Acute (5) Type 2 diabetes mellitus: Code(s): E11.9 - Type 2 diabetes mellitus without complications Status: Acute (6) CKD (chronic kidney disease) stage 3, GFR 30-59 ml/min: Code(s): N18.30 - Chronic kidney disease, stage 3 unspecified Status: Acute Plan 69-year-old female patient with past medical history of CKD, hypertension, thyroid cancer, chronic Kaplan, systolic and diastolic congestive heart failure, and bilateral above the knee amputations presents the hospital with elevated BNP. Patient had routine labs taking at her nursing facility where her BNP was 22,000. Patient also has twitching that started few days ago. She denies nausea, vomiting, shortness of breath, increased swelling. Lab work here shows hemoglobin of 10.4, potassium of 5.8, BUN of 51, creatinine 1.56, glucose of 48, lactic acid of 1.3, AST of 39, CRP of 2.3, BNP over 30,000, UA shows negative nitrates, 3+ leukocyte esterase, 50-100 rbc's 100 wbc's, 1+ bacteria and 1+ yeast. EKG shows sinus rhythm with first-degree AV block. Chest x-ray showed no acute cardiopulmonary findings. Twitching unclear etiology? Mild serotonin syndrome. On tramadol which will be held. Also hold her gabapentin. Electrolytes has now normalized however twitching still present on evaluation. CK level came back normal. Will also be related to hypoglycemia which has now resolved. Twitching has improved now. Catheter associated UTI Kaplan exchanged in the ER on IV Rocephin follow [place] [id number] colony-forming units. CT findings of moderate left-sided hydronephrosis and left-sided hydroureter with no renal stones noted. Consult urology. On cephalexin now. 3 more days. Will recheck renal ultrasound for hydronephrosis Congestive heart failure not in acute exacerbation the a BNP over 30,000 cardiology consulted Received IV Lasix continue diuresis as ordered +restriction. Chronic systolic diastolic with EF 25-30% on 07/05. On carvedilol isosorbide dinitrate and hydralazine. CT abdomen with finding of anasarca. Will diurese with IV Lasix Hyperkalemia treated and resolved with albuterol Lasix sodium bicarb and Lokelma Hypertension home medication Type 2 diabetes mellitus with hypoglycemia not on any medications at home will continue to monitor which has now resolved. On SSI CKD stage 3 continue to monitor renal function Hypothyroidism on levothyroxine Hyperlipidemia on atorvastatin Abdominal lump: Most likely she had seroma from previous scans. Rescanned with findings of 9.7 x 7.9 x 14.7 cm loculated fluid collection similar size in the past as well. This is a seroma Constipation DVT prophylaxis Lovenox Code status do not resuscitate Subjective Date/time seen: 12/03/24 12:19 Interval history: Overnight events no new complaints. Reports abdominal distension. No fever chills. Review of Systems Review of Systems: All systems reviewed & are unremarkable except as noted in HPI and below Exam Narrative: General: well appearing, appears stated age. HEENT: normocephalic, atraumatic. Mucous membranes moist. EOMI, PERRLA Respiratory: clear to ascultation bilaterally. No rales/rhonic/wheezes. Cardiovascular: Regular rate and rhythm, normal S1-S2 upon ascultation. No murmur rubs or gallops Abdomen: Soft, round, no pulsatile masses, nondistended and nontender. No rebound, no guarding. Extremities: No cyanosis, clubbing, Bilateral [id number] amputation +2 edema Neuro: Alert and orientated x 4. PERRLA. Cranial nerves 2-12 intact without focal deficit. Skin: Warm, dry, and intact, without rash, erythema, or lesion. Psych: pleasant, cooperative, normal speech, normal affect, no hallucinations, no dysarthia Objective Data Vital Signs Vital Signs: Vital Signs - 24 hr 12/02/24 16:00 12/02/24 20:10 12/02/24 22:00 Temperature 97.6 F 97.6 F Pulse Rate 77 90 77 Respiratory Rate 18 20 Blood Pressure 163/70 H 158/64 H Pulse Oximetry 99 95 Oxygen Delivery 12/03/24 05:41 12/03/24 08:00 12/03/24 08:26 Temperature 97.6 F Pulse Rate 76 108 H Respiratory Rate 20 Blood Pressure 93/66 L Pulse Oximetry 97 Oxygen Delivery Room Air Intake/Output Intake/Output: Intake & Output 11/30/24 12/01/24 12/02/24 12/03/24 23:59 23:59 23:59 23:59 Intake Total 830 1040 1520 490 Output Total 1850 2300 1150 1050 Balance -1020 -1260 370 -560 Meds/Results Medications: Active Medications Generic Name Dose Route Start Last Admin Trade Name Freq PRN Reason Stop Dose Admin Acetaminophen 650 mg 11/29/24 14:20 12/02/24 08:42 Acetaminophen 325 Mg Tablet PO 650 mg Q4H PRN Administration Mild Pain (1-3) or Fever Atorvastatin Calcium 40 mg 11/29/24 21:00 12/02/24 20:10 Atorvastatin 40 Mg Tablet PO 40 mg HS KASIE Administration Bisacodyl 10 mg 11/29/24 19:24 Bisacodyl 10 Mg Suppository RECTAL DAILY PRN Constipation Carvedilol 12.5 mg 11/30/24 09:00 12/03/24 08:26 Carvedilol 12.5 Mg Tablet PO 12.5 mg Q12HR KASIE Administration Cephalexin HCl 500 mg 12/01/24 21:00 12/03/24 08:28 Cephalexin 500 Mg Capsule PO 500 mg Q12HR KASIE Administration Dextrose 12.5 gm 11/29/24 14:20 Dextrose 50% 25 Gm/50 Ml Syringe IV PUSH PRN PRN Hypoglycemia Protocol Docusate Sodium 100 mg 11/30/24 17:49 Docusate Sodium 100 Mg Capsule PO BID PRN constipation Enoxaparin Sodium 40 mg 11/30/24 09:00 12/03/24 08:28 Enoxaparin 40 Mg/0.4 Ml Syringe SUB-Q 40 mg DAILY KASIE Administration Furosemide 40 mg 12/01/24 09:00 12/03/24 08:26 Furosemide 40 Mg Tablet PO 40 mg DAILY KASIE Administration Gabapentin 100 mg 11/30/24 09:00 11/30/24 08:43 Gabapentin 100 Mg Capsule PO 100 mg On Hold: 11/30/24 10:58 TID KASIE Administration Glucagon 1 mg 11/29/24 14:20 Glucagon For Inj 1 Mg Vial IM PRN PRN Hypoglycemia Protocol Glucose 15 gm 11/29/24 14:20 Glucose Oral Gel 15 Gm Of Glucse In 37.5 Gm Tube PO PRN PRN Hypoglycemia Protocol Hydralazine HCl 10 mg 11/30/24 09:00 12/03/24 08:28 Hydralazine 10 Mg Tablet PO 10 mg TID KASIE Administration Dextrose 1,000 mls @ 100 mls/hr 11/29/24 14:20 Dextrose 5% 1,000 Ml IVPB PRN PRN Hypoglycemia Protocol Insulin Aspart 2 - 5 units 11/29/24 17:00 12/03/24 08:25 Insulin Aspart (*Bkc) 100 Units/Ml SUB-Q Not Given TIDWM KASIE Protocol Isosorbide Dinitrate 10 mg 11/30/24 09:00 12/03/24 08:26 Isosorbide Dinitrate 10 Mg Tablet PO 10 mg TID KASIE Administration Levothyroxine Sodium 100 mcg 11/30/24 06:30 12/03/24 05:33 Levothyroxine Sodium 100 Mcg Tablet PO 100 mcg DAILY@0630 KASIE Administration Loratadine 10 mg 11/30/24 09:00 12/03/24 08:28 Loratadine 10 Mg Tablet PO 10 mg QAM KASIE Administration Pantoprazole Sodium 40 mg 11/30/24 09:00 12/03/24 08:28 Pantoprazole 40 Mg Tablet PO 40 mg DAILY KASIE Administration Radiology Results: ITS Impressions Abdomen/Pelvis CT 12/02/24 14:25 IMPRESSION: 1. Thickening of the zamora of the sigmoid colon and rectum with surrounding fat stranding. The findings may be secondary to proctitis/colitis. Recommend follow-up to resolution to exclude an underlying mass. 2.Small amount of nonspecific fat stranding and fluid scattered throughout the abdomen and pelvis. 3.Moderate left-sided hydronephrosis and left-sided hydroureter. 4.Moderate thickening of the zamora of the bladder. Moderate amount of air in the bladder which may be due to recent instrumentation, however, cystitis is possible. 5.Moderate nonspecific anasarca. 6.There is a 9.7 x 7.9 x 14.7 cm loculated fluid collection along the anterior abdominal/pelvic wall. Chest X-Ray 12/03/24 11:00 IMPRESSION: 1. Developing mild right basilar atelectasis and/or airspace disease. Labs Labs: Laboratory Results - last 24 hr 12/02/24 12/02/24 12/03/24 16:38 21:27 06:14 WBC 4.7 RBC 3.24 L Hgb 10.3 L Hct 32.5 L MCV 100.3 H MCH 31.8 MCHC 31.7 L RDW 18.2 H Plt Count 148 L MPV 10.6 H Immature Gran % (Auto) 0.6 H Neut % (Auto) 59.6 Lymph % (Auto) 26.1 Williams % (Auto) 8.8 H Eos % (Auto) 3.6 Baso % (Auto) 1.3 H Lymph # (Auto) 1.22 Williams # (Auto) 0.4 Eos # (Auto) 0.2 Baso # (Auto) 0.1 Abs Immat Gran (auto) 0.03 Absolute Neuts (auto) 2.8 Absolute Nucleated RBC 0.000 Nucleated RBC % 0.0 Sodium 136 L Potassium 3.7 Chloride 98 Carbon Dioxide 28 Anion Gap 10 BUN 37 H Creatinine 1.32 H Estim Creat Clear Calc 34 Estimated GFR 40 L Glucose 157 H POC Capillary Glucose 153 H 195 H Calcium 8.3 L Magnesium 1.8 Total Bilirubin 0.8 AST 27 ALT 12 Alkaline Phosphatase 54 Total Protein 7.4 Albumin 3.5 12/03/24 12/03/24 06:37 12:11 WBC RBC Hgb Hct MCV MCH MCHC RDW Plt Count MPV Immature Gran % (Auto) Neut % (Auto) Lymph % (Auto) Williams % (Auto) Eos % (Auto) Baso % (Auto) Lymph # (Auto) Williams # (Auto) Eos # (Auto) Baso # (Auto) Abs Immat Gran (auto) Absolute Neuts (auto) Absolute Nucleated RBC Nucleated RBC % Sodium Potassium Chloride Carbon Dioxide Anion Gap BUN Creatinine Estim Creat Clear Calc Estimated GFR Glucose POC Capillary Glucose 153 H 155 H Calcium Magnesium Total Bilirubin AST ALT Alkaline Phosphatase Total Protein Albumin
[2024-12-03 14:08] VITALS: BP 135/48; PULSE 73; RESP 14; TEMP 36; O2SAT 99
[2024-12-03] MEDS: FUROSEMIDE INJ 40 MG/4 ML VIAL IV PUSH (14:52)
--- NOTE | 2024-12-03 15:05 | WPDURCON ---
Assessment and Plan Assessment and plan (1) CKD (chronic kidney disease) stage 3, GFR 30-59 ml/min: Code(s): N18.30 - Chronic kidney disease, stage 3 unspecified Status: Chronic (2) Hydronephrosis, left: Code(s): N13.30 - Unspecified hydronephrosis Status: Chronic (3) Chronic cystitis: Code(s): N30.20 - Other chronic cystitis without hematuria Status: Chronic (4) Anasarca: Code(s): R60.1 - Generalized edema Status: Acute Plan Ms. Pascual is a 69-year-old female with multiple complex, chronic comorbidities including severe CHF, CKD, and a chronic indwelling Kaplan catheter, admitted for anasarca and catheter-associated UTI (suspect colonization rather than active infection). Urine cultures showed mixed yulia and she is currently on cephalexin. Recent imaging confirms chronic findings of left hydroureteronephrosis and a large anterior abdominal wall seroma, without evidence of urolithiasis. Given her stable renal function, afebrile status, and chronic nature of her findings, no acute urologic surgical intervention is planned at this time. Inpatient urology to follow peripherally. Please call with questions. Case discussed with Dr. Dick Urology Consult Note HPI Date Seen: 12/03/24 Requesting Physician: Chantelle Gonsales MD Primary Care Provider: Jadiel Martínez Consult Narrative Reason for consult: Left hydroureteronephrosis Narrative: Ms. Pascual is a 69-year-old female admitted 11/30/2024 for abnormal labs including elevated proBNP and hyperkalemia, as well as increased lower extremity edema and new onset twitching. Today, she reports 'feeling full of fluid' and abdominal distension. She denies abdominal pain, chest pain, or shortness of breath. She has a chronic indwelling Kaplan catheter, which is draining clear yellow urine and does not appear to be causing any issues. She is a bilateral [id number] amputee and requires a Sharona lift for transfers. 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 She is on furosemide, empagliflozin, and insulin. 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 No family at bedside. PERTINENT LABS: 11/29/2024 - Hgb 10.4, Plt 149, Cr 1.56, K 5.8, Lactic acid 1.3, BNP >30,000. Urinalysis: 3+ leukocyte esterase, 50-100 RBCs, >100 WBCs, 1+ bacteria, 1+ yeast. Urine culture: mixed urogenital yulia 10,000-25,000 CFU. 12/03/2024 - WBC 4.7, Hgb 10.3, Plt 148, Cr 1.32. PERTINENT IMAGIN12/03/2024 US renal BI ([facility]) - Technically difficult study. Left kidney not seen. Right kidney no hydronephrosis. 12/02/2024 CT abdomen pelvis wo con ([facility]) - Moderate left-sided hydronephrosis and hydroureter without calculi. Moderate bladder wall thickening with air, concerning for cystitis. Moderate nonspecific anasarca. 9.7 x 7.9 x 14.7 cm loculated fluid collection along the anterior abdominal/pelvic wall. Thickening of the sigmoid colon and rectum zamora with fat stranding. Review of Systems Constitutional: Constitutional: Reports weakness Eyes: Eyes: Reports no additional eye complaints Cardiovascular: Cardiovascular: Denies chest pain Respiratory: Respiratory: Denies dyspnea Gastrointestinal: Gastrointestinal: Reports as per HPI Genitourinary: Genitourinary: Reports as per HPI and Denies hematuria Musculoskeletal: Musculoskeletal: Denies back pain [facility] Past Medical History Medical History (Updated 12/03/24 @ 15:58 by Tanisha Arreola, CAMERON) Dementia Chronic indwelling Kaplan catheter CKD (chronic kidney disease) stage 3, GFR 30-59 ml/min With baseline creatinine between 1.3 and 1.6 Iron deficiency anemia History of ESBL E. coli infection Recurrent Clostridioides difficile infection Anemia Pneumonia Stercoral colitis Urinary tract infection due to extended-spectrum beta lactamase (ESBL) producing Escherichia coli Type 2 diabetes mellitus Hypertension C. difficile diarrhea (01/2024) Gastroesophageal reflux disease History of breast cancer Thyroid cancer Hyperlipidemia Peripheral vascular disease Non-STEMI (non-ST elevated myocardial infarction) Combined systolic and diastolic congestive heart failure Echo 01/2024 demonstrated stable systolic dysfunction with EF of 25-30% but worsening diastolic function with grade 3-4 dysfunction with elevated left atrial pressures, mild right ventricular enlargement with hypokinesis of the right ventricle, mild aortic stenosis with mild aortic regurgitation, mild pulmonary hypertension with RVSP of 41 with aqqf-id-kaeekcly pericardial effusion among other abnormalities Neuropathy Psychiatric disorder Surgical History Surgical History (Updated 11/29/24 @ 14:19 by Beba Starks APRN) S/P AKA (above knee amputation) bilateral History of thyroidectomy History of ventral hernia repair With chronic calcified seroma History of above-knee amputation of both lower extremities History of right breast implant Patient reports that it was radiation implant History of lumpectomy of left breast Family History Family History Mother Family history of type 2 diabetes mellitus, Onset Age: 55 Father Acute myocardial infarction, Onset Age: 58 Social History Social History Social History: Surrogate medical decision maker: Ailyn Turner, daughter. Code status: Do not resuscitate with selective treatment (paperwork accompanies the patient). Smoking status: Never smoker Second hand tobacco smoke exposure: No Alcohol intake: unknown Substance use: unknown Substance use type: does not use Do You Feel Safe in your Home?: Yes Lack of Transportation: No Lack of Food: Never True Current Housing: I Do Not Have Housing Concerned About Future Housing: No Difficulty Paying Gas/Electric Bills: No Difficulty Paying for Meds: No Currently Unemployed: No Education: High School Diploma/GED Difficulty w/ Childcare or Family Care: No Spiritual care concerns: No Meds Home Medications and Allergies Home Medications ?Medication ?Instructions ?Recorded ?Confirmed ?Type atorvastatin 40 mg tablet 40 mg PO HS 12/05/21 11/29/24 History levothyroxine 100 mcg tablet 100 mcg PO DAILY 12/05/21 11/29/24 History potassium chloride 10 mEq 20 meq PO DAILY 05/16/22 11/29/24 History capsule,extended release magnesium citrate (Citroma oral 296 ml PO DAILY PRN Constipation 02/15/24 11/29/24 History solution) magnesium hydroxide 400 mg/5 mL 400 mg PO HS PRN Constipation 02/15/24 11/29/24 History oral suspension (Milk of Magnesia) ferrous sulfate 325 mg (65 mg 325 mg PO BID #90 tabs 02/29/24 11/29/24 Rx iron) tablet,delayed release acetaminophen 325 mg capsule 650 mg PO Q4H PRN pain or fever 05/04/24 11/29/24 History calcium 600 mg (as 1 cap PO DAILY 05/04/24 11/29/24 History carbonate)-vitamin D3 5 mcg (200 unit) capsule (Calcium 600 + D(3)) cyanocobalamin (vitamin B-12) 1,000 mcg PO DAILY 05/04/24 11/29/24 History 1,000 mcg capsule multivitamin,tx-minerals 1 cap PO DAILY 05/04/24 11/29/24 History (Multi-Vitamin HP/Minerals capsule) bisacodyl 10 mg rectal suppository 10 mg RECTAL DAILY PRN constipation 07/06/24 11/29/24 History insulin aspart U-100 100 unit/mL See Rx Instructions .Route .COMPLEX 07/06/24 11/29/24 History subcutaneous solution (Novolog U-100 Insulin aspart) carvedilol 12.5 mg tablet (Coreg) 12.5 mg PO Q12HR #60 tabs 07/18/24 11/29/24 Rx furosemide 40 mg tablet 40 mg PO DAILY #30 tabs 07/18/24 11/29/24 Rx hydralazine 10 mg tablet 10 mg PO TID #90 tabs 07/18/24 11/29/24 Rx isosorbide dinitrate 10 mg tablet 10 mg PO TID #90 tabs 07/18/24 11/29/24 Rx sodium bicarbonate 650 mg tablet 650 mg PO BID #28 tabs 07/18/24 11/29/24 Rx Held on 10/14/24. Instructions: HOLD - resume when okay with provider cetirizine 10 mg tablet 10 mg PO DAILY 10/05/24 11/29/24 History pantoprazole 40 mg tablet,delayed 40 mg PO DAILY 10/05/24 11/29/24 History release (Protonix) gabapentin 300 mg capsule 100 mg (0.3333 x 300 mg) PO TID 10/14/24 11/29/24 Rx #10 caps tramadol 50 mg tablet 50 mg PO Q6-8H PRN pain 11/29/24 11/29/24 History Allergies Allergy/AdvReac Type Severity Reaction Status Date / Time codeine Allergy Unknown Verified 11/29/24 16:51 Vital Signs Vital Signs - 24 hr 12/02/24 16:00 12/02/24 20:10 12/02/24 22:00 Temperature 97.6 F 97.6 F Pulse Rate 77 90 77 Respiratory Rate 18 20 Blood Pressure 163/70 H 158/64 H Pulse Oximetry 99 95 Oxygen Delivery 12/03/24 05:41 12/03/24 08:00 12/03/24 08:26 Temperature 97.6 F Pulse Rate 76 108 H Respiratory Rate 20 Blood Pressure 93/66 L Pulse Oximetry 97 Oxygen Delivery Room Air 12/03/24 14:08 Temperature 96.8 F L Pulse Rate 73 Respiratory Rate 14 Blood Pressure 135/48 L Pulse Oximetry 99 Oxygen Delivery Exam Narrative: General: The patient is well-developed in no acute distress. HEENT: Normocephalic, normal ear and nose structures Skin: Warm, dry, with no lesions seen on visible skin. Anasarca is present. Lungs: Normal respiratory effort Heart: Appears well perfused Abdomen: Largely distended, pitting anasarca Genitourinary: Kaplan yellow output Extremities: Lower - bilateral suqsb-asu-qyuu amputations, +2 edema noted. Neurologic: Normal mood and affect. Results Labs 12/03/24 06:14 12/03/24 06:14 Labs: Short CBC 12/03/24 Range/Units 06:14 WBC 4.7 (4.5-10.0) K/mm3 Hgb 10.3 L (12.0-15.0) g/dL Hct 32.5 L (37.0-47.0) % Plt Count 148 L (150-375) k/mm3 BMP 12/03/24 06:14 Sodium 136 L Potassium 3.7 Chloride 98 Carbon Dioxide 28 BUN 37 H Creatinine 1.32 H Glucose 157 H Calcium 8.3 L Liver Function 12/03/24 Range/Units 06:14 Total Bilirubin 0.8 (0.2-1.3) mg/dL AST 27 (14-36) U/L ALT 12 (6-35) U/L Alkaline Phosphatase 54 (38-126) U/L Albumin 3.5 (3.5-5.1) g/dL
[2024-12-03 20:39] VITALS: PULSE 78
[2024-12-03] MEDS: ATORVASTATIN 40 MG TABLET PO (20:39)
[2024-12-03 21:27] VITALS: BP 105/62; PULSE 78; RESP 20; TEMP 36.5; O2SAT 100
[2024-12-04] MEDS: LEVOTHYROXINE SODIUM 100 MCG TABLET PO (05:34)
[2024-12-04 06:00] VITALS: BP 126/47; PULSE 65; RESP 20; TEMP 36.7; O2SAT 99
[2024-12-04 06:48] LABS: Hematocrit 28.9 % (37.0-47.0); Hemoglobin 9.2 g/dL (12.0-15.0); Immature Granulocyte Percent A 0.3 % (0-0.5); Lymphocytes Absolute Auto 1.09 K/mm3 (0.9-3.2); Mean Corpuscular HGB Conc 31.8 g/dl (32-36); Mean Corpuscular Hemoglobin 31.4 pg (26-34); Mean Corpuscular Volume 98.6 fl (80-100); Nucleated Red Blood Cells Absolute Auto 0.000 K/mm3 (0.0-0.012); Nucleated Red Blood Cells Perc 0.0 % (0.0-0.2); Platelet Count Result 131 k/mm3 (150-375); Red Blood Count 2.93 M/mm3 (4.2-5.4); White Blood Count 3.8 K/mm3 (4.5-10.0)
[2024-12-04 07:18] LABS: Alanine Aminotransferase 8 U/L (6-35); Albumin Level 3.4 g/dL (3.5-5.1); Alkaline Phosphatase 43 U/L (38-126); Anion Gap 9 mmol/L (4-12); Aspartate Amino Transferase 28 U/L (14-36); Bilirubin,Total 0.7 mg/dL (0.2-1.3); Blood Urea Nitrogen 35 mg/dL (7-17); Calcium 8.3 mg/dL (8.4-10.2); Carbon Dioxide 28 mmol/L (22-30); Chloride 96 mmol/L (98-107); Estimated CRCL calculation 36 ml/min; Estimated Glomerular Filt Rate 43; Glucose 115 mg/dL (65-110); Magnesium 1.7 mg/dL (1.6-2.3); Potassium 3.7 mmol/L (3.4-5.0); Sodium 133 mmol/L (137-145); Total Protein 6.9 g/dL (6.3-8.2)
[2024-12-04 09:18] VITALS: PULSE 65
[2024-12-04] MEDS: LORATADINE 10 MG TABLET PO (09:18)
[2024-12-04] MEDS: PANTOPRAZOLE 40 MG TABLET PO (09:18)
[2024-12-04] MEDS: ISOSORBIDE DINITRATE 10 MG TABLET PO ×3 (09:19→17:35)
[2024-12-04] MEDS: CEPHALEXIN 500 MG CAPSULE PO (09:19)
[2024-12-04] MEDS: ENOXAPARIN 40 MG/0.4 ML SYRINGE SUB-Q (09:19)
[2024-12-04] MEDS: FUROSEMIDE INJ 40 MG/4 ML VIAL IV PUSH (09:19)
--- NOTE | 2024-12-04 09:40 | P.PNCA_ITS ---
Progress Note: A&P Assessment and Plan (1) Combined systolic and diastolic congestive heart failure: Qualifiers: Heart failure chronicity: acute on chronic Qualified Code(s): I50.43 - Acute on chronic combined systolic (congestive) and diastolic (congestive) heart failure Code(s): I50.40 - Unspecified combined systolic (congestive) and diastolic (congestive) heart failure Status: Acute Plan This is a 69-year-old lady who has severe left ventricular systolic dysfunction. Repeat echo demonstrates an unchanged EF of 25-30% with biventricular systolic dysfunction and moderate tricuspid insufficiency. Because of her chronic kidney disease her medical regimen consists of the beta leah, hydralazine and isos orbide. She is currently IV lasix, with good UO overnight and improvement in breathing and abdominal distension. Will monitor volume status UTI-management per primary team. CT 12/02 did demonstrate lt sided hydronephrosis and left sided hydroureter-urology has seen and this is chronic Loculated fluid collection of the anterior abominal/pelvic wall (9.7 7.9x 14.7cm) Management per primary team Hypertension. reasonable control will monitor Diabetes. Glycemic control per primary team PVD. with bilateral AKA Continue IV diuresis today Monitor renal function closely Monitor I&O Subjective Date/time seen: 12/04/24 09:40 Interval history: 12/03/24. Patient is sitting up in bed. She reports some abdominal distension and shortness of breath when lying flat. No chest pain or pressure. 12/04/24. Patient sitting up in bed reports some nausea this am. No chest pain. She states feeling better this am. She reports less abdominal distension and shortness of breath Review of Systems Review of Systems: All systems reviewed & are unremarkable except as noted in HPI and below Exam Const: Other: Very pleasant black female appearing about her stated age resting in bed, no distress HENMT: Mouth: Yes moist mucous membranes Eyes: Sclera: sclerae normal Neck: Neck: supple Resp: Effort & Inspection: normal respiratory effort Auscultation: clear to auscultation bilaterally Cardio: Rate: regular rate Rhythm: regular rhythm Other: PMI is not palpable GI: Auscultation: normal bowel sounds Skin: General skin exam: normal color Neuro: Other: Alert and responsive Extrem: Other: Bilateral guwap-ypa-mfzx amputee Objective Data Vital Signs Vital Signs: Vital Signs - 24 hr 12/03/24 14:08 12/03/24 20:39 12/03/24 21:27 Temperature 36.0 C L 36.5 C Pulse Rate 73 78 78 Respiratory Rate 14 20 Blood Pressure 135/48 L 105/62 Pulse Oximetry 99 100 12/04/24 06:00 12/04/24 09:18 Temperature 36.7 C Pulse Rate 65 65 Respiratory Rate 20 Blood Pressure 126/47 L Pulse Oximetry 99 Intake/Output Intake/Output: Intake & Output 12/01/24 12/02/24 12/03/24 12/04/24 23:59 23:59 23:59 23:59 Intake Total 1040 1520 1090 100 Output Total 2300 1150 2300 825 Balance -1260 210 -2088 -543 Meds/Results Medications: Active Medications Generic Name Dose Route Start Last Admin Trade Name Freq PRN Reason Stop Dose Admin Acetaminophen 650 mg 11/29/24 14:20 12/02/24 08:42 Acetaminophen 325 Mg Tablet PO 650 mg Q4H PRN Administration Mild Pain (1-3) or Fever Atorvastatin Calcium 40 mg 11/29/24 21:00 12/03/24 20:39 Atorvastatin 40 Mg Tablet PO 40 mg HS KASIE Administration Bisacodyl 10 mg 11/29/24 19:24 Bisacodyl 10 Mg Suppository RECTAL DAILY PRN Constipation Carvedilol 12.5 mg 11/30/24 09:00 12/04/24 09:18 Carvedilol 12.5 Mg Tablet PO 12.5 mg Q12HR KASIE Administration Cephalexin HCl 500 mg 12/01/24 21:00 12/04/24 09:19 Cephalexin 500 Mg Capsule PO 12/04/24 20:59 500 mg Q12HR KASIE Administration Dextrose 12.5 gm 11/29/24 14:20 Dextrose 50% 25 Gm/50 Ml Syringe IV PUSH PRN PRN Hypoglycemia Protocol Docusate Sodium 100 mg 11/30/24 17:49 Docusate Sodium 100 Mg Capsule PO BID PRN constipation Enoxaparin Sodium 40 mg 11/30/24 09:00 12/04/24 09:19 Enoxaparin 40 Mg/0.4 Ml Syringe SUB-Q 40 mg DAILY KASIE Administration Furosemide 40 mg 12/04/24 09:00 12/04/24 09:19 Furosemide Inj 40 Mg/4 Ml Vial IV PUSH 40 mg DAILY KASIE Administration Gabapentin 100 mg 11/30/24 09:00 11/30/24 08:43 Gabapentin 100 Mg Capsule PO 100 mg On Hold: 11/30/24 10:58 TID KASIE Administration Glucagon 1 mg 11/29/24 14:20 Glucagon For Inj 1 Mg Vial IM PRN PRN Hypoglycemia Protocol Glucose 15 gm 11/29/24 14:20 Glucose Oral Gel 15 Gm Of Glucse In 37.5 Gm Tube PO PRN PRN Hypoglycemia Protocol Hydralazine HCl 10 mg 11/30/24 09:00 12/04/24 09:19 Hydralazine 10 Mg Tablet PO 10 mg TID KASIE Administration Dextrose 1,000 mls @ 100 mls/hr 11/29/24 14:20 Dextrose 5% 1,000 Ml IVPB PRN PRN Hypoglycemia Protocol Insulin Aspart 2 - 5 units 11/29/24 17:00 12/04/24 08:48 Insulin Aspart (*Bkc) 100 Units/Ml SUB-Q Not Given TIDWM KASIE Protocol Isosorbide Dinitrate 10 mg 11/30/24 09:00 12/04/24 09:19 Isosorbide Dinitrate 10 Mg Tablet PO 10 mg TID KASIE Administration Levothyroxine Sodium 100 mcg 11/30/24 06:30 12/04/24 05:34 Levothyroxine Sodium 100 Mcg Tablet PO 100 mcg DAILY@0630 KASIE Administration Loratadine 10 mg 11/30/24 09:00 12/04/24 09:18 Loratadine 10 Mg Tablet PO 10 mg QAM KASIE Administration Pantoprazole Sodium 40 mg 11/30/24 09:00 12/04/24 09:18 Pantoprazole 40 Mg Tablet PO 40 mg DAILY KASIE Administration Radiology Results: ITS Impressions Abdomen/Pelvis CT 12/02/24 14:25 IMPRESSION: 1. Thickening of the zamora of the sigmoid colon and rectum with surrounding fat stranding. The findings may be secondary to proctitis/colitis. Recommend follow- up to resolution to exclude an underlying mass. 2.Small amount of nonspecific fat stranding and fluid scattered throughout the abdomen and pelvis. 3.Moderate left-sided hydronephrosis and left-sided hydroureter. 4.Moderate thickening of the zamora of the bladder. Moderate amount of air in the bladder which may be due to recent instrumentation, however, cystitis is possible. 5.Moderate nonspecific anasarca. 6.There is a 9.7 x 7.9 x 14.7 cm loculated fluid collection along the anterior abdominal/pelvic wall. Chest X-Ray 12/03/24 11:00 IMPRESSION: 1. Developing mild right basilar atelectasis and/or airspace disease. Renal Ultrasound 12/03/24 14:02 IMPRESSION: 1. Technically difficult study. 2. Left kidney not seen. 3. Right kidney no hydronephrosis. Labs Labs: Laboratory Results - last 24 hr 12/03/24 12/03/24 12/03/24 12:11 16:24 20:35 WBC RBC Hgb Hct MCV MCH MCHC RDW Plt Count MPV Immature Gran % (Auto) Neut % (Auto) Lymph % (Auto) [place] % (Auto) Eos % (Auto) Baso % (Auto) Lymph # (Auto) [place] # (Auto) Eos # (Auto) Baso # (Auto) Abs Immat Gran (auto) Absolute Neuts (auto) Absolute Nucleated RBC Nucleated RBC % Sodium Potassium Chloride Carbon Dioxide Anion Gap BUN Creatinine Estim Creat Clear Calc Estimated GFR Glucose POC Capillary Glucose 155 H 138 H 157 H Calcium Magnesium Total Bilirubin AST ALT Alkaline Phosphatase Total Protein Albumin 12/04/24 12/04/24 05:39 07:55 WBC 3.8 L RBC 2.93 L Hgb 9.2 L Hct 28.9 L MCV 98.6 MCH 31.4 MCHC 31.8 L RDW 18.3 H Plt Count 131 L MPV 11.3 H Immature Gran % (Auto) 0.3 Neut % (Auto) 54.0 Lymph % (Auto) 29.0 [place] % (Auto) 10.6 H Eos % (Auto) 5.3 H Baso % (Auto) 0.8 Lymph # (Auto) 1.09 [place] # (Auto) 0.4 Eos # (Auto) 0.2 Baso # (Auto) 0.0 Abs Immat Gran (auto) 0.01 Absolute Neuts (auto) 2.0 Absolute Nucleated RBC 0.000 Nucleated RBC % 0.0 Sodium 133 L Potassium 3.7 Chloride 96 L Carbon Dioxide 28 Anion Gap 9 BUN 35 H Creatinine 1.24 H Estim Creat Clear Calc 36 Estimated GFR 43 L Glucose 115 H POC Capillary Glucose 115 H Calcium 8.3 L Magnesium 1.7 Total Bilirubin 0.7 AST 28 ALT 8 Alkaline Phosphatase 43 Total Protein 6.9 Albumin 3.4 L
[2024-12-04 14:00] VITALS: BP 104/54; PULSE 68; RESP 18; TEMP 36.2; O2SAT 94
--- NOTE | 2024-12-04 14:24 | P.PNIM_ITS ---
Progress Note: A&P Assessment and Plan (1) Catheter-associated urinary tract infection: Qualifiers: Encounter type: initial encounter Indwelling urinary catheter type: indwelling urethral catheter Qualified Code(s): T83.511A - Infection and inflammatory reaction due to indwelling urethral catheter, initial encounter; N39.0 - Urinary tract infection, site not specified Code(s): T83.511A - Infection and inflammatory reaction due to indwelling urethral catheter, initial encounter; N39.0 - Urinary tract infection, site not specified Status: Acute (2) CHF exacerbation: Code(s): I50.9 - Heart failure, unspecified Status: Acute (3) Acute hyperkalemia: Code(s): E87.5 - Hyperkalemia Status: Acute (4) Hypertension: Code(s): I10 - Essential (primary) hypertension Status: Acute (5) Type 2 diabetes mellitus: Code(s): E11.9 - Type 2 diabetes mellitus without complications Status: Acute (6) CKD (chronic kidney disease) stage 3, GFR 30-59 ml/min: Code(s): N18.30 - Chronic kidney disease, stage 3 unspecified Status: Chronic Plan Twitching - unclear etiology? Mild serotonin syndrome. On tramadol which will be held. Also hold her gabapentin. Electrolytes has now normalized however twitching still present on evaluation. CK level came back normal. Will also be related to hypoglycemia which has now resolved. Twitching has improved now. Catheter associated UTI - Kaplan exchanged in the ER and started on IV Rocephin. [place] [id number] colony-forming units. CT findings of moderate left-sided hydronephrosis and left-sided hydroureter with no renal stones noted. Urology consulted. De-escalted to cephalexin now. Repeat renal ultrasound 12/03 showing that left kidney not visualized. Congestive heart failure - BNP over 30K. CXR was clear. Cardiology consulted. Received IV Lasix. 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 On carvedilol, isosorbide dinitrate and hydralazine. CT abdomen with finding of anasarca. Continue IV Lasix one more day. Probably home tomorrow. Hyperkalemia - treated and resolved with albuterol, Lasix, sodium bicarb and Lokelma. Hypertension -blood pressure well controlled. Continue to monitor. Type 2 diabetes mellitus -glucose well controlled. Continue to monitor. CKD stage 3 -creatinine 1.6 on admission but has trended down to 1.2 today. Continue to monitor. Hypothyroidism - on levothyroxine Hyperlipidemia - on atorvastatin Abdominal and breast mass - these findings are chronic seromas noted of multiple prior studies. DVT prophylaxis Lovenox Code status do not resuscitate Subjective Date/time seen: 12/04/24 14:24 Interval history: 69-year-old female patient with past medical history of CKD, hypertension, thyro id cancer, chronic Kaplan, systolic and diastolic congestive heart failure, and bilateral above the knee amputations presents the hospital with abnormal labs. Assuming care. Chart reviewed. Patient feels well. No chest pain or shortness of breath. No nausea or vomiting. She is requesting discharge today. Exam Narrative: AF 98.1 126/47 65 20 99% ra General: No acute respiratory distress Respiratory: Lungs clear anteriorly in the flanks. Firm nodule in the right upper outer breast quadrant which is chronic. Cardiovascular: Regular rate and rhythm Abdomen: Soft, obese. Large central mass noted. -urinary catheter secured draining clear yellow urine. Extremities: Bilateral [id number] amputation Neuro: Alert and appropriate Skin: Warm, dry Psych: Pleasant and cooperative Objective Data Vital Signs Vital Signs: Vital Signs - 24 hr 12/03/24 20:39 12/03/24 21:27 12/04/24 06:00 Temperature 97.7 F 98.1 F Pulse Rate 78 78 65 Respiratory Rate 20 20 Blood Pressure 105/62 126/47 L Pulse Oximetry 100 99 12/04/24 09:18 Temperature Pulse Rate 65 Respiratory Rate Blood Pressure Pulse Oximetry Intake/Output Intake/Output: Intake & Output 12/01/24 12/02/24 12/03/24 12/04/24 23:59 23:59 23:59 23:59 Intake Total 1040 1520 1090 340 Output Total 2300 1150 2300 825 Balance -1260 839 -1969 -759 Meds/Results Medications: Active Medications Generic Name Dose Route Start Last Admin Trade Name Freq PRN Reason Stop Dose Admin Acetaminophen 650 mg 11/29/24 14:20 12/02/24 08:42 Acetaminophen 325 Mg Tablet PO 650 mg Q4H PRN Administration Mild Pain (1-3) or Fever Atorvastatin Calcium 40 mg 11/29/24 21:00 12/03/24 20:39 Atorvastatin 40 Mg Tablet PO 40 mg HS KASIE Administration Bisacodyl 10 mg 11/29/24 19:24 Bisacodyl 10 Mg Suppository RECTAL DAILY PRN Constipation Carvedilol 12.5 mg 11/30/24 09:00 12/04/24 09:18 Carvedilol 12.5 Mg Tablet PO 12.5 mg Q12HR KASIE Administration Cephalexin HCl 500 mg 12/01/24 21:00 12/04/24 09:19 Cephalexin 500 Mg Capsule PO 12/04/24 20:59 500 mg Q12HR KASIE Administration Dextrose 12.5 gm 11/29/24 14:20 Dextrose 50% 25 Gm/50 Ml Syringe IV PUSH PRN PRN Hypoglycemia Protocol Docusate Sodium 100 mg 11/30/24 17:49 Docusate Sodium 100 Mg Capsule PO BID PRN constipation Enoxaparin Sodium 40 mg 11/30/24 09:00 12/04/24 09:19 Enoxaparin 40 Mg/0.4 Ml Syringe SUB-Q 40 mg DAILY KASIE Administration Furosemide 40 mg 12/04/24 09:00 12/04/24 09:19 Furosemide Inj 40 Mg/4 Ml Vial IV PUSH 40 mg DAILY KASIE Administration Gabapentin 100 mg 11/30/24 09:00 11/30/24 08:43 Gabapentin 100 Mg Capsule PO 100 mg On Hold: 11/30/24 10:58 TID KASIE Administration Glucagon 1 mg 11/29/24 14:20 Glucagon For Inj 1 Mg Vial IM PRN PRN Hypoglycemia Protocol Glucose 15 gm 11/29/24 14:20 Glucose Oral Gel 15 Gm Of Glucse In 37.5 Gm Tube PO PRN PRN Hypoglycemia Protocol Hydralazine HCl 10 mg 11/30/24 09:00 12/04/24 13:24 Hydralazine 10 Mg Tablet PO 10 mg TID KASIE Administration Dextrose 1,000 mls @ 100 mls/hr 11/29/24 14:20 Dextrose 5% 1,000 Ml IVPB PRN PRN Hypoglycemia Protocol Insulin Aspart 2 - 5 units 11/29/24 17:00 12/04/24 13:02 Insulin Aspart (*Bkc) 100 Units/Ml SUB-Q Not Given TIDWM KASIE Protocol Isosorbide Dinitrate 10 mg 11/30/24 09:00 12/04/24 13:24 Isosorbide Dinitrate 10 Mg Tablet PO 10 mg TID KASIE Administration Levothyroxine Sodium 100 mcg 11/30/24 06:30 12/04/24 05:34 Levothyroxine Sodium 100 Mcg Tablet PO 100 mcg DAILY@0630 KASIE Administration Loratadine 10 mg 11/30/24 09:00 12/04/24 09:18 Loratadine 10 Mg Tablet PO 10 mg QAM KASIE Administration Pantoprazole Sodium 40 mg 11/30/24 09:00 12/04/24 09:18 Pantoprazole 40 Mg Tablet PO 40 mg DAILY KASIE Administration Radiology Results: ITS Impressions Abdomen/Pelvis CT 12/02/24 14:25 IMPRESSION: 1. Thickening of the zamora of the sigmoid colon and rectum with surrounding fat stranding. The findings may be secondary to proctitis/colitis. Recommend follow- up to resolution to exclude an underlying mass. 2.Small amount of nonspecific fat stranding and fluid scattered throughout the abdomen and pelvis. 3.Moderate left-sided hydronephrosis and left-sided hydroureter. 4.Moderate thickening of the zamora of the bladder. Moderate amount of air in the bladder which may be due to recent instrumentation, however, cystitis is possible. 5.Moderate nonspecific anasarca. 6.There is a 9.7 x 7.9 x 14.7 cm loculated fluid collection along the anterior abdominal/pelvic wall. Chest X-Ray 12/03/24 11:00 IMPRESSION: 1. Developing mild right basilar atelectasis and/or airspace disease. Renal Ultrasound 12/03/24 14:02 IMPRESSION: 1. Technically difficult study. 2. Left kidney not seen. 3. Right kidney no hydronephrosis. Labs Labs: Laboratory Results - last 24 hr 12/03/24 12/03/24 12/04/24 16:24 20:35 05:39 WBC 3.8 L RBC 2.93 L Hgb 9.2 L Hct 28.9 L MCV 98.6 MCH 31.4 MCHC 31.8 L RDW 18.3 H Plt Count 131 L MPV 11.3 H Immature Gran % (Auto) 0.3 Neut % (Auto) 54.0 Lymph % (Auto) 29.0 [place] % (Auto) 10.6 H Eos % (Auto) 5.3 H Baso % (Auto) 0.8 Lymph # (Auto) 1.09 [place] # (Auto) 0.4 Eos # (Auto) 0.2 Baso # (Auto) 0.0 Abs Immat Gran (auto) 0.01 Absolute Neuts (auto) 2.0 Absolute Nucleated RBC 0.000 Nucleated RBC % 0.0 Sodium 133 L Potassium 3.7 Chloride 96 L Carbon Dioxide 28 Anion Gap 9 BUN 35 H Creatinine 1.24 H Estim Creat Clear Calc 36 Estimated GFR 43 L Glucose 115 H POC Capillary Glucose 138 H 157 H Calcium 8.3 L Magnesium 1.7 Total Bilirubin 0.7 AST 28 ALT 8 Alkaline Phosphatase 43 Total Protein 6.9 Albumin 3.4 L 12/04/24 12/04/24 07:55 11:43 WBC RBC Hgb Hct MCV MCH MCHC RDW Plt Count MPV Immature Gran % (Auto) Neut % (Auto) Lymph % (Auto) [place] % (Auto) Eos % (Auto) Baso % (Auto) Lymph # (Auto) [place] # (Auto) Eos # (Auto) Baso # (Auto) Abs Immat Gran (auto) Absolute Neuts (auto) Absolute Nucleated RBC Nucleated RBC % Sodium Potassium Chloride Carbon Dioxide Anion Gap BUN Creatinine Estim Creat Clear Calc Estimated GFR Glucose POC Capillary Glucose 115 H 117 H Calcium Magnesium Total Bilirubin AST ALT Alkaline Phosphatase Total Protein Albumin
[2024-12-04 20:35] VITALS: PULSE 88
[2024-12-04] MEDS: ATORVASTATIN 40 MG TABLET PO (20:35)
[2024-12-04 21:36] VITALS: BP 173/60; PULSE 69; RESP 16; TEMP 36.3; O2SAT 99
[2024-12-05] MEDS: LEVOTHYROXINE SODIUM 100 MCG TABLET PO (05:30)
[2024-12-05 06:00] VITALS: BP 148/54; PULSE 63; RESP 14; TEMP 35.9; O2SAT 100
[2024-12-05 07:08] LABS: Albumin Level 3.3 g/dL (3.5-5.1); Anion Gap 9 mmol/L (4-12); Blood Urea Nitrogen 33 mg/dL (7-17); Calcium 8.4 mg/dL (8.4-10.2); Carbon Dioxide 25 mmol/L (22-30); Chloride 99 mmol/L (98-107); Estimated CRCL calculation 41 ml/min; Estimated Glomerular Filt Rate 50; Glucose 83 mg/dL (65-110); Magnesium 1.7 mg/dL (1.6-2.3); Potassium 3.9 mmol/L (3.4-5.0); Sodium 133 mmol/L (137-145)
[2024-12-05 08:57] LABS: Hematocrit 32.6 % (37.0-47.0); Hemoglobin 10.0 g/dL (12.0-15.0); Immature Granulocyte Percent A 0.5 % (0-0.5); Lymphocytes Absolute Auto 0.87 K/mm3 (0.9-3.2); Mean Corpuscular HGB Conc 30.7 g/dl (32-36); Mean Corpuscular Hemoglobin 31.6 pg (26-34); Mean Corpuscular Volume 103.2 fl (80-100); Nucleated Red Blood Cells Absolute Auto 0.000 K/mm3 (0.0-0.012); Nucleated Red Blood Cells Perc 0.0 % (0.0-0.2); Platelet Count Result 133 k/mm3 (150-375); Red Blood Count 3.16 M/mm3 (4.2-5.4); White Blood Count 4.0 K/mm3 (4.5-10.0)
[2024-12-05] MEDS: ISOSORBIDE DINITRATE 10 MG TABLET PO ×3 (09:39→17:06)
[2024-12-05] MEDS: FUROSEMIDE INJ 40 MG/4 ML VIAL IV PUSH (09:39)
[2024-12-05] MEDS: LORATADINE 10 MG TABLET PO (09:39)
[2024-12-05] MEDS: ENOXAPARIN 40 MG/0.4 ML SYRINGE SUB-Q (09:39)
[2024-12-05] MEDS: PANTOPRAZOLE 40 MG TABLET PO (09:39)
[2024-12-05 09:43] VITALS: PULSE 70
--- NOTE | 2024-12-05 12:57 | P.PNCA_ITS ---
Progress Note: A&P Assessment and Plan (1) Combined systolic and diastolic congestive heart failure: Qualifiers: Heart failure chronicity: acute on chronic Qualified Code(s): I50.43 - Acute on chronic combined systolic (congestive) and diastolic (congestive) heart failure Code(s): I50.40 - Unspecified combined systolic (congestive) and diastolic (congestive) heart failure Status: Acute Plan This is a 69-year-old lady who has severe left ventricular systolic dysfunction. Repeat echo demonstrates an unchanged EF of 25-30% with biventricular systolic dysfunction and moderate tricuspid insufficiency. Because of her chronic kidney disease her medical regimen consists of the beta leah, hydralazine and isos orbide. She received two doses of IV lasix and had good urine output, diuresing almost 6L. Will shift her back to her home dose of lasix today. No additional cardiac recommendations to make at this time. UTI-management per primary team. CT 12/02 did demonstrate lt sided hydronephrosis and left sided hydroureter Loculated fluid collection of the anterior abominal/pelvic wall (9.7 7.9x 14.7cm) Management per primary team Hypertension. reasonable control will monitor Diabetes. Glycemic control per primary team PVD. with bilateral AKA Subjective Date/time seen: 12/05/24 12:57 Interval history: 12/03/24. Patient is sitting up in bed. She reports some abdominal distension and shortness of breath when lying flat. No chest pain or pressure. 12/04/24. Patient sitting up in bed reports some nausea this am. No chest pain. She states feeling better this am. She reports less abdominal distension and shortness of breath Date of service 12/05/2024: Feels better today. No shortness of breath, chest pain, palpitations. Review of Systems Review of Systems: All systems reviewed & are unremarkable except as noted in HPI and below Constitutional: Constitutional: Reports difficulty sleeping Eyes: Eyes: Reports no additional eye complaints ENT: Reports system reviewed and no additional complaints, except as documented Cardiovascular: Cardiovascular: Reports as per HPI Respiratory: Respiratory: Reports no additional respiratory complaints Gastrointestinal: Gastrointestinal: Reports no additional gastrointestinal complaints Musculoskeletal: Musculoskeletal: Reports no additional musculoskeletal complaints Integumentary/Breasts: Skin/Breast: Reports system reviewed and no additional complaints, except as docu Neurologic: Reports system reviewed and no additional complaints, except as documented Endocrine: Endocrine: Reports no additional endocrine complaints Hematologic/Lymphatic: Hematologic/Lymphatic: Reports no additional hematologic/lymphatic complaints Exam Const: Other: Very pleasant black female appearing about her stated age resting in bed, no distress HENMT: Mouth: Yes moist mucous membranes Eyes: Sclera: sclerae normal Neck: Neck: supple Resp: Effort & Inspection: normal respiratory effort Auscultation: clear to auscultation bilaterally Cardio: Rate: regular rate Rhythm: regular rhythm GI: Auscultation: normal bowel sounds Skin: General skin exam: normal color Neuro: Other: Alert and responsive Extrem: Other: Bilateral [id number] amputee Objective Data Vital Signs Vital Signs: Vital Signs - 24 hr 12/04/24 14:00 12/04/24 20:35 12/04/24 21:36 Temperature 36.2 C L 36.3 C L Pulse Rate 68 88 69 Respiratory Rate 18 16 Blood Pressure 104/54 L 173/60 H Pulse Oximetry 94 99 Oxygen Delivery 12/05/24 06:00 12/05/24 09:39 12/05/24 09:43 Temperature 35.9 C L Pulse Rate 63 70 Respiratory Rate 14 Blood Pressure 148/54 H Pulse Oximetry 100 Oxygen Delivery Room Air Intake/Output Intake/Output: Intake & Output 12/02/24 12/03/24 12/04/24 12/05/24 23:59 23:59 23:59 23:59 Intake Total 1520 1090 820 340 Output Total 1150 2300 1775 1525 Balance 421 -1849 -968 -6699 Meds/Results Medications: Active Medications Generic Name Dose Route Start Last Admin Trade Name Irish PRN Reason Stop Dose Admin Acetaminophen 650 mg 11/29/24 14:20 12/02/24 08:42 Acetaminophen 325 Mg Tablet PO 650 mg Q4H PRN Administration Mild Pain (1-3) or Fever Atorvastatin Calcium 40 mg 11/29/24 21:00 12/04/24 20:35 Atorvastatin 40 Mg Tablet PO 40 mg HS KASIE Administration Bisacodyl 10 mg 11/29/24 19:24 Bisacodyl 10 Mg Suppository RECTAL DAILY PRN Constipation Carvedilol 12.5 mg 11/30/24 09:00 12/05/24 09:43 Carvedilol 12.5 Mg Tablet PO 12.5 mg Q12HR KASIE Administration Dextrose 12.5 gm 11/29/24 14:20 Dextrose 50% 25 Gm/50 Ml Syringe IV PUSH PRN PRN Hypoglycemia Protocol Docusate Sodium 100 mg 11/30/24 17:49 Docusate Sodium 100 Mg Capsule PO BID PRN constipation Enoxaparin Sodium 40 mg 11/30/24 09:00 12/05/24 09:39 Enoxaparin 40 Mg/0.4 Ml Syringe SUB-Q 40 mg DAILY KASIE Administration Furosemide 40 mg 12/04/24 09:00 12/05/24 09:39 Furosemide Inj 40 Mg/4 Ml Vial IV PUSH 40 mg DAILY KASIE Administration Gabapentin 100 mg 11/30/24 09:00 11/30/24 08:43 Gabapentin 100 Mg Capsule PO 100 mg On Hold: 11/30/24 10:58 TID KASIE Administration Glucagon 1 mg 11/29/24 14:20 Glucagon For Inj 1 Mg Vial IM PRN PRN Hypoglycemia Protocol Glucose 15 gm 11/29/24 14:20 Glucose Oral Gel 15 Gm Of Glucse In 37.5 Gm Tube PO PRN PRN Hypoglycemia Protocol Hydralazine HCl 10 mg 11/30/24 09:00 12/05/24 09:39 Hydralazine 10 Mg Tablet PO 10 mg TID KASIE Administration Dextrose 1,000 mls @ 100 mls/hr 11/29/24 14:20 Dextrose 5% 1,000 Ml IVPB PRN PRN Hypoglycemia Protocol Insulin Aspart 2 - 5 units 11/29/24 17:00 12/05/24 12:09 Insulin Aspart (*Bkc) 100 Units/Ml SUB-Q Not Given TIDWM KASIE Protocol Isosorbide Dinitrate 10 mg 11/30/24 09:00 12/05/24 09:39 Isosorbide Dinitrate 10 Mg Tablet PO 10 mg TID KASIE Administration Levothyroxine Sodium 100 mcg 11/30/24 06:30 12/05/24 05:30 Levothyroxine Sodium 100 Mcg Tablet PO 100 mcg DAILY@0630 KASIE Administration Loratadine 10 mg 11/30/24 09:00 12/05/24 09:39 Loratadine 10 Mg Tablet PO 10 mg QAM KASIE Administration Pantoprazole Sodium 40 mg 11/30/24 09:00 12/05/24 09:39 Pantoprazole 40 Mg Tablet PO 40 mg DAILY KASIE Administration Radiology Results: ITS Impressions Abdomen/Pelvis CT 12/02/24 14:25 IMPRESSION: 1. Thickening of the zamora of the sigmoid colon and rectum with surrounding fat stranding. The findings may be secondary to proctitis/colitis. Recommend follow- up to resolution to exclude an underlying mass. 2.Small amount of nonspecific fat stranding and fluid scattered throughout the abdomen and pelvis. 3.Moderate left-sided hydronephrosis and left-sided hydroureter. 4.Moderate thickening of the zamora of the bladder. Moderate amount of air in the bladder which may be due to recent instrumentation, however, cystitis is possible. 5.Moderate nonspecific anasarca. 6.There is a 9.7 x 7.9 x 14.7 cm loculated fluid collection along the anterior abdominal/pelvic wall. Chest X-Ray 12/03/24 11:00 IMPRESSION: 1. Developing mild right basilar atelectasis and/or airspace disease. Renal Ultrasound 12/03/24 14:02 IMPRESSION: 1. Technically difficult study. 2. Left kidney not seen. 3. Right kidney no hydronephrosis. Labs Labs: Laboratory Results - last 24 hr 12/04/24 12/04/24 12/05/24 16:47 20:24 06:07 WBC RBC Hgb Hct MCV MCH MCHC RDW Plt Count MPV Immature Gran % (Auto) Neut % (Auto) Lymph % (Auto) [place] % (Auto) Eos % (Auto) Baso % (Auto) Lymph # (Auto) [place] # (Auto) Eos # (Auto) Baso # (Auto) Abs Immat Gran (auto) Absolute Neuts (auto) Absolute Nucleated RBC Nucleated RBC % Sodium 133 L Potassium 3.9 Chloride 99 Carbon Dioxide 25 Anion Gap 9 BUN 33 H Creatinine 1.08 H Estim Creat Clear Calc 41 Estimated GFR 50 L Glucose 83 POC Capillary Glucose 120 H 118 H Calcium 8.4 Phosphorus 3.5 Magnesium 1.7 Albumin 3.3 L 12/05/24 12/05/24 12/05/24 07:52 08:18 11:14 WBC 4.0 L RBC 3.16 L Hgb 10.0 L Hct 32.6 L MCV 103.2 H MCH 31.6 MCHC 30.7 L RDW 18.2 H Plt Count 133 L MPV 10.7 H Immature Gran % (Auto) 0.5 Neut % (Auto) 63.3 Lymph % (Auto) 21.6 [place] % (Auto) 8.7 H Eos % (Auto) 5.2 H Baso % (Auto) 0.7 Lymph # (Auto) 0.87 L [place] # (Auto) 0.4 Eos # (Auto) 0.2 Baso # (Auto) 0.0 Abs Immat Gran (auto) 0.02 Absolute Neuts (auto) 2.6 Absolute Nucleated RBC 0.000 Nucleated RBC % 0.0 Sodium Potassium Chloride Carbon Dioxide Anion Gap BUN Creatinine Estim Creat Clear Calc Estimated GFR Glucose POC Capillary Glucose 84 147 H Calcium Phosphorus Magnesium Albumin Quality VTE Prophylaxis VTE prophylaxis: pharmacologic ordered
[2024-12-05 14:00] VITALS: BP 130/36; PULSE 67; RESP 18; TEMP 36.8; O2SAT 98
--- NOTE | 2024-12-05 15:43 | P.DS_ITS ---
DS: Admitting Diagnosis Discharge Date 12/05/24 Admitting Diagnosis Abnormal labs DS: Discharge Diagnosis Discharge Diagnosis (1) Muscle twitching: Code(s): R25.3 - Fasciculation Status: Acute (2) Catheter-associated urinary tract infection: Qualifiers: Encounter type: initial encounter Indwelling urinary catheter type: indwelling urethral catheter Qualified Code(s): T83.511A - Infection and inf lammatory reaction due to indwelling urethral catheter, initial encounter; N39.0 - Urinary tract infection, site not specified Code(s): T83.511A - Infection and inflammatory reaction due to indwelling urethral catheter, initial encounter; N39.0 - Urinary tract infection, site not specified Status: Acute (3) CHF exacerbation: Code(s): I50.9 - Heart failure, unspecified Status: Acute (4) Acute hyperkalemia: Code(s): E87.5 - Hyperkalemia Status: Acute (5) Hypertension: Code(s): I10 - Essential (primary) hypertension Status: Acute (6) Type 2 diabetes mellitus: Code(s): E11.9 - Type 2 diabetes mellitus without complications Status: Acute (7) CKD (chronic kidney disease) stage 3, GFR 30-59 ml/min: Code(s): N18.30 - Chronic kidney disease, stage 3 unspecified Status: Chronic DS: Summary Hospital Course Reason for hospitalization: 69-year-old female patient with past medical history of CKD, hypertension, thyroid cancer, chronic Kaplan, systolic and diastolic congestive heart failure, and bilateral above the knee amputations presents the hospital with abnormal labs. Please see H&P for details. Hospital Course: The following issues were addressed: Twitching - unclear etiology. On tramadol and gabapentin which were held. Electrolytes normalized however twitching still present on evaluation. CK level came back normal. Possily related to hypoglycemia which has now resolved. Twitching has improved now. Catheter associated UTI - Kaplan exchanged in the ER and started on IV Rocephin. [place] [id number] colony-forming units. CT findings of moderate left-sided hydronephrosis and left-sided hydroureter with no renal stones noted. Urology consulted. De-escalted to cephalexin and she completed a course of antibiotics. Repeat renal ultrasound 12/03 showing that left kidney not visualized. BCx remained negative to date. Acute on chronic systolic and diastolic CHF - BNP over 30K. CXR was clear. Cardiology consulted. Received IV Lasix. 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 On carvedilol, isosorbide dinitrate and hydralazine due to CKD. CT abdomen with finding of anasarca. Negative fluid balance. She was transitioned to oral Lasix. Hyperkalemia - treated and resolved with albuterol, Lasix, sodium bicarb and Lokelma. Hypertension -blood pressure remained well controlled. Type 2 diabetes mellitus -glucose remained well controlled. CKD stage 3 -creatinine 1.6 on admission but has trended down to 1.08 today. Hypothyroidism - on levothyroxine Hyperlipidemia - on atorvastatin Abdominal and breast mass - these findings are chronic seromas noted of multiple prior studies. Patient overall did well. She was able to be discharged on 12/05/2024. All questions answered. Status at Discharge Cognitive/behavioral status at discharge: Stable Time Spent with Patient Time attestation: Total time spent providing and/or coordinating discharge services: 34 minutes Time spent: Greater than 30 minutes Exam Narrative: AF 98.2 130/36 67 18 98% ra General: No acute respiratory distress Respiratory: Lungs clear anteriorly in the flanks. Firm nodule in the right upper outer breast quadrant which is chronic. Cardiovascular: Regular rate and rhythm Abdomen: Soft, obese. Large central mass noted. Flank edema noted. -urinary catheter secured draining clear yellow urine. Extremities: Bilateral razja-axr-lujh amputation Neuro: Alert and appropriate Skin: Warm, dry Psych: Pleasant and cooperative DS: Data Data Completed and Pending Labs on day of discharge: Labs from last 24 hours 12/05/24 12/05/24 12/05/24 11:14 08:18 07:52 WBC 4.0 L RBC 3.16 L Hgb 10.0 L Hct 32.6 L MCV 103.2 H MCH 31.6 MCHC 30.7 L RDW 18.2 H Plt Count 133 L MPV 10.7 H Immature Gran % (Auto) 0.5 Neut % (Auto) 63.3 Lymph % (Auto) 21.6 Saunders % (Auto) 8.7 H Eos % (Auto) 5.2 H Baso % (Auto) 0.7 Lymph # (Auto) 0.87 L Saunders # (Auto) 0.4 Eos # (Auto) 0.2 Baso # (Auto) 0.0 Abs Immat Gran (auto) 0.02 Absolute Neuts (auto) 2.6 Absolute Nucleated RBC 0.000 Nucleated RBC % 0.0 Sodium Potassium Chloride Carbon Dioxide Anion Gap BUN Creatinine Estim Creat Clear Calc Estimated GFR Glucose POC Capillary Glucose 147 H 84 Calcium Phosphorus Magnesium Albumin 12/05/24 12/04/24 12/04/24 06:07 20:24 16:47 WBC RBC Hgb Hct MCV MCH MCHC RDW Plt Count MPV Immature Gran % (Auto) Neut % (Auto) Lymph % (Auto) Saunders % (Auto) Eos % (Auto) Baso % (Auto) Lymph # (Auto) Saunders # (Auto) Eos # (Auto) Baso # (Auto) Abs Immat Gran (auto) Absolute Neuts (auto) Absolute Nucleated RBC Nucleated RBC % Sodium 133 L Potassium 3.9 Chloride 99 Carbon Dioxide 25 Anion Gap 9 BUN 33 H Creatinine 1.08 H Estim Creat Clear Calc 41 Estimated GFR 50 L Glucose 83 POC Capillary Glucose 118 H 120 H Calcium 8.4 Phosphorus 3.5 Magnesium 1.7 Albumin 3.3 L Preliminary micro results at discharge 11/29/24 17:30 Blood Culture - Preliminary Blood 11/29/24 17:38 Blood Culture - Preliminary Blood Discharge Plan Discharge Attending physician on discharge: Shayne Mtz Consulting providers: Tanisha Hernandez; Kneny Dick Discharging Clinician: Shayne Mtz Anticipated Discharge Date/Time: 12/05/24 15:53 Patient Disposition: NH Residential/Asst Living Activity: as tolerated Diet: heart healthy and diabetic Discharge Instructions: Fluid restriction of 1800mL/day Please check glucose before meals and before bed. Record for the doctor's review. Check blood pressure 1 to 2 times a day. Record for the doctor's review. Take precautions to avoid falls. Routine skin care to avoid bed sores Routine urinary catheter care. Change out catheter every 4 weeks. Check daily morning weights after voiding. Call the doctor if the patient gains more than 3 lb in 2 days or 5 lb in 1 week. Contact the doctor if the patient has any fevers or other worrisome symptoms. Avoid NSAIDs (ibuprofen, naproxen, Aleve). Tylenol is safe to take. Follow-up with the provider at the facility. Thank you for using [facility] for your health care needs. Patient Instructions: Antibiotic Form Patient Language: Swedish Stand Alone Forms: General Discharge Information Follow-up/Referrals: Jadiel Martínez [Other] - Call for Appointment Discharge Medications: New furosemide [Lasix] 20 mg tablet 20 mg PO MO Qty: 30 0RF Rx Instructions: Every Lqoynr-Xhshlqhmz-Cifuek at 2 PM (to be given in addition to her Lasix 40mg QAM) Continued atorvastatin 40 mg tablet 40 mg PO HS levothyroxine 100 mcg tablet 100 mcg PO DAILY acetaminophen 325 mg capsule 650 mg PO Q4H PRN (Reason: pain or fever) cyanocobalamin (vitamin B-12) 1,000 mcg capsule 1,000 mcg PO DAILY calcium carbonate-vitamin D3 [Calcium 600 + D(3)] 600 mg-5 mcg (200 unit) capsule 1 cap PO DAILY Multi-Vitamin HP/Minerals Capsule 1 cap PO DAILY magnesium hydroxide [Milk of Magnesia] 400 mg/5 mL Suspension 400 mg PO HS PRN (Reason: Constipation) Rx Instructions: if no BM in 3 days magnesium citrate [Citroma] Solution 296 ml PO DAILY PRN (Reason: Constipation) Rx Instructions: if no results from enema ferrous sulfate 325 mg (65 mg iron) Tablet,Delayed Release (Dr/Ec) 325 mg PO BID Qty: 90 0RF bisacodyl 10 mg suppository 10 mg RECTAL DAILY PRN (Reason: constipation) Rx Instructions: if no results from MOM insulin aspart U-100 [Novolog U-100 Insulin aspart] 100 unit/mL solution See Rx Instructions .ROUTE .COMPLEX Rx Instructions: 150-200 2 units, 201-250 4 units, 251-300 6 units, 301-350 8 units, 351-400 10 units, 401-500 12 units, over 500 notify furosemide 40 mg Tablet 40 mg PO DAILY Qty: 30 0RF carvedilol [Coreg] 12.5 mg Tablet 12.5 mg PO Q12HR Qty: 60 0RF Patient Comments: not on [facility] medication list isosorbide dinitrate 10 mg Tablet 10 mg PO TID Qty: 90 0RF Patient Comments: not on [facility] medication list hydralazine 10 mg Tablet 10 mg PO TID Qty: 90 0RF Patient Comments: not on [facility] medication list cetirizine 10 mg tablet 10 mg PO DAILY pantoprazole [Protonix] 40 mg tablet,delayed release (DR/EC) 40 mg PO DAILY Held potassium chloride 10 mEq capsule, extended release 20 meq PO DAILY Hold Instructions: HOLD - resume when okay with provider gabapentin 300 mg capsule 100 mg PO TID Qty: 10 0RF Hold Instructions: HOLD - resume when okay with provider tramadol 50 mg tablet 50 mg PO Q6-8H PRN (Reason: pain) Hold Instructions: HOLD - resume when okay with provider Discontinued sodium bicarbonate 650 mg Tablet 650 mg PO BID Qty: 28 0RF Other Ambulatory Orders: Basic Metabolic Panel (Routine) Timeframe: 20241212 Location: Determined by Patient Ordered By: Shayne Mtz Date of admission: 11/30/24 17:14 Primary Care Provider: Jadiel Martínez Admitting Provider: Chantelle Gonsales Attending physician on admission: Chantelle Gonsales Condition: Stable Hospitalist MIPS Heart Failure (Exclusion) Patient has history of Heart Transplant or Left Ventricular Assistive Device?: No IF YES, STOP HERE Heart Failure (Qualifier) Patient has current or prior documentation of LVEF less than or equal to 40%, or mod/servere depressed LVSF?: Yes IF NO, STOP HERE If Yes, Heart Failure (Qualifier) Patient was prescribed or already taking an Angiotensin-Converting Enzyme (GERMAN[place]) Inhibitor, or Antiotensin Receptor Consuelo (ARB): No Patient was prescribed or already taking bisoprolol, carvedilol, or sustained release metoprolol succinate: Yes If Medications not prescribed/taking Reason patient not prescribed/taking [place] or ARB: Medical reasons: allergy, intolerance, contraindication or other
[2024-12-05 20:00] VITALS: PULSE 78; RESP 18; O2SAT 98
[2024-12-05] MEDS: ATORVASTATIN 40 MG TABLET PO (20:04)
[2024-12-05 20:05] VITALS: PULSE 78
[2024-12-05 22:05] VITALS: O2SAT 98
== END 2024-12-05 22:00 | DRG 698 ==
LOC: ANHED 11:25 → ANHIMU 16:12 → ANH3MEDSUR 12-01 15:05
PROVIDERS: Internal Medicine; Nurse Practitioner Gerontology; Admitting Provider General Practice; Emergency Provider Emergency Medicine; Visit Provider Internal Medicine
DX: T83.511A Infection and inflammatory reaction due to indwelling urethral catheter, initial encounter (principal); I50.43 Acute on chronic combined systolic (congestive) and diastolic (congestive) heart failure; I13.0 Hypertensive heart and chronic kidney disease with heart failure and stage 1 through stage 4 chronic kidney disease, or unspecified chronic kidney disease; N13.6 Pyonephrosis; N18.30 Chronic kidney disease, stage 3 unspecified; E87.5 Hyperkalemia; E11.40 Type 2 diabetes mellitus with diabetic neuropathy, unspecified; E11.51 Type 2 diabetes mellitus with diabetic peripheral angiopathy without gangrene; E78.5 Hyperlipidemia, unspecified; D50.9 Iron deficiency anemia, unspecified; K21.9 Gastro-esophageal reflux disease without esophagitis; R25.3 Fasciculation; R19.09 Other intra-abdominal and pelvic swelling, mass and lump; F03.90 Unspecified dementia, unspecified severity, without behavioral disturbance, psychotic disturbance, mood disturbance, and anxiety; Z79.4 Long term (current) use of insulin; Z85.3 Personal history of malignant neoplasm of breast; Z85.850 Personal history of malignant neoplasm of thyroid; I25.2 Old myocardial infarction; Z89.612 Acquired absence of left leg above knee; Z89.611 Acquired absence of right leg above knee
CPT/HCPCS: 36415; 71045; 74176; 76770; 80048; 80053; 80069; 81001; 82550; 82948; 83605; 83735; 83880; 85025; 85055; 85610; 85730; 86140; 87040; 87086; 93005; 94640; 96365; 96375; 96376; 99285; A9270; C8929; G0378; J0696; J1610; J1650; J1938; J3475; Q9957

== ENCOUNTER 2024-12-15 09:38 | Emergency (ER) | payer MEDICARE, MEDICAID, SELFPAY ==
[2024-12-15 09:38] VITALS: BP 139/64; PULSE 64; RESP 16; TEMP 36.4; O2SAT 100
--- NOTE | 2024-12-15 09:44 | ECG_ITS ---
Test Date: 2024-12-15 09:46:50 Measurements Intervals [place] Rate: 64 P: 53 CA: 259 QRS: -72 QRSD: 76 T: 102 QT: 398 QTc: 413 Interpretive Statements SINUS RHYTHM WITH FIRST DEGREE AV BLOCK LOW QRS VOLTAGE IN DIFFUSE LEADS LEFT ANTERIOR FASCICULAR BLOCK EXTENSIVE ANTERIOR INFARCT, AGE INDETERMINATE BORDERLINE ST-T WAVE ABNORMALITY- HIGH LATERAL LEADS BASELINE ARTIFACT- I, II, AVR, V3, V5-V6 ABNORMAL ECG Compared to ECG 11/29/2024 11:30:24 NO SIGNIFICANT CHANGE Electronically Signed On 12-15-2024 10:34:17 CDT by Rowdy Law D.O.
[2024-12-15 09:55] VITALS: O2SAT 100
--- NOTE | 2024-12-15 10:10 | PC.NURSE ---
RN unable to obtain IV access, second RN to try
--- OUTSIDE RECORDS SUMMARY | 2024-12-15 10:37 | XMS_ITS | Clinical Summary ---
Author Organization [facility] Address [address] [place] [address] Care Team Providers Care Paediatric Thoracic Physician Name Role Phone Unavailable Primary Care Provider Unavailabl e Source Comments [facility],non-owned Affiliates and Associated Physician Practices is amultiple site organization consisting of ambulatory clinics and hospital sitesin [place], [place], [place] and [place]. This disclosure is being madepursuant to the Care Everywhere program and may not contain all information available regarding this patient. 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
--- OUTSIDE RECORDS SUMMARY | 2024-12-15 10:37 | XMS_ITS | Clinical Summary ---
Author Organization [facility] Address [address] [place] [address] Phone Care Team Providers Care Track Repairer Name Role Phone Damon SwansonTesha DO Unavailable [phone] Zeke Puente MD Primary Care Provider [phone] Sarah Baldwin MD, Karl Romero Unavailable Arley Peña MD Unavailable [phone] Allergies Active Allergy Reactions Criticality Noted Date Comments Codeine Phosphate Nausea & Vomiting Low 10/08/2012 Medications amLODIPine (NORVASC) 10 mg tablet Take 1 tablet (10 mg total) by mouth daily Active atorvastatin (LIPITOR) 40 mg tablet Take 1 tablet (40 mg total) by mouth daily Active levothyroxine (SYNTHROID) 100 mcg tablet Take 1 tablet (100 mcg total) by mouth volunteer recruitment coordinator before breakfast 30 tablet 1 1 [...] (06/21/2020): Added automatically from request for surgery [id number] Sepsis 11/20/2019 Acute hematogenous osteomyelitis of right foot 0 11/20/2019 PVD (peripheral vascular disease) 11/20/2019 Anemia 11/20/2019 COVID-19 11/20/2019 Hypothyroidism 11/20/2019 Hyperlipidemia 11/20/2019 Pressure injury of sacral region, stage 4 2019 Moderate malnutrition 11/07/2019 Malignant neoplasm of upper- 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, estrogen receptor negative 11/13/2017 Dementia Diabetes mellitus Hypertension Encounters Date Type Department Care Team Description 12/09/2024 Orders Only [facility] Cardiology [address] [facility] [address] [place] [phone] Lizbeth Bashir NP 12/05/2024 Orders Only [facility] Cardiology [address] [place] [phone] Tanisha Hernandez NP 12/02/2024 Orders Only [facility] Cardiology [address] [facility] [address] [place] [phone] Bud Mustafa MD from Last 3 Months Surgical History Surgery Date Site/Laterality Comments HERNIA REPAIR Medical History Medical History Date Comments Diabetes mellitus Hypertension Dementia (HCC) Family History Medical History [...] often do you attend chur ch or sabianism services? 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 Gender Identity Not on file Sexual Orientation [...] 1) 06/27/2022 5:02 PM CDT pt b il [...] Additional history exists Influenza Vaccine (#1) 2024 , 01/24/2017, 01/02/2017, Additional history exists DTaP/Tdap/Td Vaccine (2 - Td or Tdap) 06/27/2029 06/28/2019 Procedures Procedure Name Priority Date/Time Associated Diagnosis Comments CARDIOLOGY DOCUMENT SCAN Routine 12/05/2024 10:15 AM CDT CARDIOLOGY DOCUMENT SCAN Routine 12/04/2024 11:17 AM CDT CARDIOLOGY DOCUMENT SCAN Routine 11/30/2024 3:55 PM CDT EGFR STAT 09/02/2023 12:08 PM CDT HEMOGLOBIN A1C Routine 06/18/2020 5:43 AM CDT SCREENING MAMMOGRAM BILATERAL W ZAC Routine 12/26/2016 10:50 AM CDT from Last 3 Months or Most Recently Relevant to Health Maintenance Results * Cardiology Document Scan (12/05/2024 10:15 AM CDT) Anatomical Region Laterality Modality Other us Lizbeth Bashir NP CV CARDIAC SERVICES PROCEDUR ES Final Result * Cardiology Document Scan (12/04/2024 11:17 AM CDT) Anatomical Region Laterality Modality Other us Tanisha Hernandez NP CV CARDIAC SERVICE S PROCEDURES Final Result * Cardiology Document Scan (11/30/2024 3:55 PM CDT) Anatomical Region Laterality Modality Other Bud Mustafa MD CV CARDIAC SERVICES PROC EDURES Final Result * eGFR (09/02/2023 12:08 PM CDT) [...] ORDERABLE S Final Result Performing Organization Address City/[facility] Co de Phone Number [facility] [address] [facility] Department [place] [address] * (ABNORMAL) Hemoglobin A1c (06/18/2020 5:43 AM CDT) Hgb A1C 8.0(H) 4.0 - 5.6 % [facility] Estimated Average Glucose 183 mg/dL [facility] Comment: The ADA recommends reporting an estimated Average Glucose (eAG) with all Hemoglobin A1c results using the equation derived from a study of 507 normal and diabetic adults. Minority populations were underrepresented and children were not included. (Diabetes Care 31:4917-6621, 2008). The eAG is not equivalent to a fasting glucose. Blood specimen (specimen) 06/18/2020 5:43 AM CDT 06/18/2020 6:23 AM CDT us Summer Anguiano MD LAB BLOOD ORDERABLES Final Result [facility] [address] Department [place] [address] * Screening Mammogram Bilateral W Zac (12/26/2016 [...] signed by: Edwar Deng M.D., md/:12/26/2016 11:34:53 Embedder: Layne Iniguez RT (R)(M), [facility] letter sent: Normal Exam Reading location: [facility] BI-RADS: 2 Benign [EOD] Narrative 12/26/2016 11:38 [...] mammogram, 11/07/2014 mammogram, and 10/30/2013 mammogram - [facility]. BREAST TISSUE: The tissue of both breasts [...] 12/18/2015 mammogram,11/07/2014 mammogram, and 10/30/2013 mammogram - [facility]. BREAST TISSUE: The tissue of both breasts [...] signed by: Edwar Deng M.D., md/:12/26/2016 11:34:53 Embedder: Layne VIVEROS (R)(M), [facility] letter sent: Normal Exam Reading location: [facility] BI-RADS: 2 Benign [EOD] Damon Swanson DO IMG MAMMO PROCEDURES Final R esult from Last 3 Months or Most Recently Relevant to Health Maintenance Insurance MEDICARE IDPA MEDICARE MEDICARE IDIL Advance Directives For more information, please contact: [phone] Documents on File Type Date Recorded Patient Grey Goods Examiner Expl anation ADVANCE DIRECTIVE 09/04/2023 2:51 PM POLST - Phys Order for PT Preferences ADVANCE DIRECTIVE 02/28/2019 12:00 AM POW ER OF AUTOMATIC SPINNING LATHE OPERATOR FINANCIAL/MEDICAL * Full Code (Latest Code [...] 12:51 AM 11/20/2019 10:35 PM Care Teams Track Repairer Relationship Specialty Start Date End Date Zeke Puente MD [address] [place] [address] PCP - General 12/02/18 Damon Swanson DO [address] [place] [id number] Medical Oncologist/Lay Out Maker Hematology and Oncology 10/25/17 Karl Smith Jr., MD [address] [place] [address] Surgeon General Surgery 11/07/19 Arley Peña MD [address] [place] [address] Surgeon General Surgery 06/26/20
--- OUTSIDE RECORDS SUMMARY | 2024-12-15 10:37 | XMS_ITS | Clinical Summary ---
Author Organization [facility] Address [facility] [place] [address] Care Team Providers Care Receptionist Airline Lounge Name Role Phone Damon Swanson MD Unavailable [phone] Don Branham MD Primary Care Provider [phone] Allergies Active Allergy Reactions Criticality Noted Date [...] 06/28/2019 Generalized weakness 06/06/2019 Hyperglycemia 06/05/2019 Sepsis ([facility]) 05/07/2019 Ulcer of lower limb, left, l imited to breakdown of skin ([facility]) 03/12/2019 Peripheral vascular disease 03/12/2019 Malignant neoplasm of upper- 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, estrogen receptor negative ([facility]) 11/13/2017 Encounters Date Type Department Care Team Description 11/27/2024 4:42 PM CDT - 11/27/2024 11:59 PM CDT Hospital Encounter [facility] [address] Ivelisse Webb NP Discharge Disposition: Home or Self Care (Routine Discharge) 11/27/2024 Orders Only [facility] [place] [address] Ivelisse Webb NP from Last 3 Months [...] Routine 11/27/2024 3:16 PM CDT Heart failure ([facility]) PRO-BRAIN NATRIURETIC PEPTIDE Routine 11/27/2024 3:16 PM CDT Heart failure ([facility]) from Last 3 Months Results * (ABNORMAL) PRO-BRAIN NATRIURETIC PEPTIDE (11/27/2024 3:16 PM CDT) PRO-B TYPE NATRIURETIC PEPTIDE 22,856(H) <125 PG/ML 11/27/2024 5:19 PM CDT [facility] Comment: CUT POINTS ESTABLISHED BY [...] Ivelisse Webb NP LABORATORY Final Re sult [facility] [address] [place] [address], * (ABNORMAL) BASIC METABOLIC PANEL (11/27/2024 3:16 PM CDT) GLUCOSE 168(H) 70 - 99 MG/DL 11/27/2024 5:19 PM CDT [facility] BUN 50(H) 7 - 18 MG/DL 11/27/2024 5:19 PM CDT [facility] CREATININE S/P/B 1.80(H) 0.55 - 1.02 MG/DL 11/27/2024 5:19 PM CDT [facility] SODIUM S/P/B 135(L) 136 - 145 MMOL/L 11/27/2024 5:19 PM CDT [facility] POTASSIUM S/P/B 6.1(H) 3.5 - 5.1 MMOL/L 11/27/2024 5:19 PM CDT [facility] CHLORIDE S/P/B 103 97 - 115 MMOL/L 11/27/2024 5:19 PM CDT [facility] CO2 27.8 21 - 32 MMOL/L 11/27/2024 5:19 PM CDT [facility] CALCIUM S/P/B 8.0(L) 8.5 - 10.1 MG/DL 11/27/2024 5:19 PM CDT [facility] ANION GAP 4.2 2 - 10 MMOL/L 11/27/2024 5:19 PM CDT [facility] BUN CREATININE RATIO 27.8(H) 6 - 26 11/27/2024 5:19 PM CDT [facility] GFR ESTIMATE 30(L) >90 ML/MIN/1.7 3 M2 11/27/2024 5:19 PM CDT [facility] Comment: NOTE: eGFR is not calculated for patients <18 years of age or gender unknown. This is an estimated GFR calculation using the new CKD EPI creatinine equation without race and so does not require a correction factor for race. This estimated GFR should not be used for calculating drug doses. 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
[2024-12-15 10:40] LABS: Add Urine Microscopic? YES; Appearance Urine Turbid (Clear); Budding Yeast Urine Present /hpf; Glucose Urine UA Negative (Negative); Leukocyte Esterase Ur 3+ LEU/UL (Negative); Need Manual Microscopic Reviewed; Nitrate Urine Negative (Negative); Specific Grav Ur 1.013 (1.001-1.035)
[2024-12-15 10:41] LABS: Cannabinoid Screen Urine Negative (Negative)
[2024-12-15 11:02] VITALS: BP 118/74; PULSE 63; RESP 13; O2SAT 100
[2024-12-15 11:10] LABS: Hematocrit 33.3 % (37.0-47.0); Hemoglobin 10.3 g/dL (12.0-15.0); Immature Granulocyte Percent A 0.4 % (0-0.5); Lymphocytes Absolute Auto 1.03 K/mm3 (0.9-3.2); Mean Corpuscular HGB Conc 30.9 g/dl (32-36); Mean Corpuscular Hemoglobin 31.5 pg (26-34); Mean Corpuscular Volume 101.8 fl (80-100); Nucleated Red Blood Cells Absolute Auto 0.000 K/mm3 (0.0-0.012); Nucleated Red Blood Cells Perc 0.0 % (0.0-0.2); Platelet Count Result 144 k/mm3 (150-375); Red Blood Count 3.27 M/mm3 (4.2-5.4); White Blood Count 5.7 K/mm3 (4.5-10.0)
[2024-12-15 11:26] LABS: Alanine Aminotransferase 18 U/L (6-35); Albumin Level 3.8 g/dL (3.5-5.1); Alkaline Phosphatase 44 U/L (38-126); Anion Gap 9 mmol/L (4-12); Aspartate Amino Transferase 48 U/L (14-36); Bilirubin,Total 0.8 mg/dL (0.2-1.3); Blood Urea Nitrogen 60 mg/dL (7-17); Calcium 8.3 mg/dL (8.4-10.2); Carbon Dioxide 30 mmol/L (22-30); Chloride 101 mmol/L (98-107); Estimated CRCL calculation 35 ml/min; Estimated Glomerular Filt Rate 39; Glucose 81 mg/dL (65-110); Potassium 3.8 mmol/L (3.4-5.0); Sodium 140 mmol/L (137-145); Total Protein 8.2 g/dL (6.3-8.2)
[2024-12-15 11:36] LABS: Troponin I < 0.012 ng/mL (0.000-0.034)
[2024-12-15 11:55] LABS: Thyroid Stimulating Hormone 7.380 uIU/mL (0.465-4.680)
[2024-12-15 12:33] VITALS: BP 136/59; PULSE 66; RESP 15; O2SAT 97
[2024-12-15] MEDS: LIDOCAINE 1% LOCAL INJ 10 ML VIAL (12:34)
[2024-12-15] MEDS: cefTRIAXone 1 GM VIAL IM (12:40)
--- NOTE | 2024-12-15 13:43 | ED.AMS ---
HPI - Altered Mental Status General Chief Complaint: Altered Mental Status Stated Complaint: AMS, lethargy Time Seen by Provider: 12/15/24 09:43 History of Present Illness HPI narrative: Patient is a 69-year-old female who presents ER with concerns for altered mental status and lethargy. They felt her blood sugar was low at 75 at the facility and gave her correction. Patient is awake alert and oriented x3 at this time. She is chewing gum emboli and bubbles. She has no complaints pain. Denies any fevers or chills. No cough. No additional concerns. Related Data Home Medications ?Medication ?Instructions ?Recorded ?Confirmed ?Last Taken ?Type atorvastatin 40 mg tablet 40 mg PO HS 12/05/21 11/29/24 10/04/24 History levothyroxine 100 mcg tablet 100 mcg PO DAILY 12/05/21 11/29/24 10/05/24 History potassium chloride 10 mEq 20 meq PO DAILY 05/16/22 11/29/24 11/29/24 History capsule,extended release Held on 12/05/24. Instructions: HOLD - resume when okay with provider magnesium citrate (Citroma oral 296 ml PO DAILY PRN Constipation 02/15/24 11/29/24 Unknown History solution) magnesium hydroxide 400 mg/5 mL 400 mg PO HS PRN Constipation 02/15/24 11/29/24 Unknown History oral suspension (Milk of Magnesia) acetaminophen 325 mg capsule 650 mg PO Q4H PRN pain or fever 05/04/24 11/29/24 Unknown History calcium 600 mg (as 1 cap PO DAILY 05/04/24 11/29/24 10/05/24 History carbonate)-vitamin D3 5 mcg (200 unit) capsule (Calcium 600 + D(3)) cyanocobalamin (vitamin B-12) 1,000 mcg PO DAILY 05/04/24 11/29/24 10/05/24 History 1,000 mcg capsule multivitamin,tx-minerals 1 cap PO DAILY 05/04/24 11/29/24 10/05/24 History (Multi-Vitamin HP/Minerals capsule) bisacodyl 10 mg rectal suppository 10 mg RECTAL DAILY PRN constipation 07/06/24 11/29/24 Unknown History insulin aspart U-100 100 unit/mL See Rx Instructions .Route .COMPLEX 07/06/24 11/29/24 10/05/24 History subcutaneous solution (Novolog U-100 Insulin aspart) cetirizine 10 mg tablet 10 mg PO DAILY 10/05/24 11/29/24 10/05/24 History pantoprazole 40 mg tablet,delayed 40 mg PO DAILY 10/05/24 11/29/24 10/05/24 History release (Protonix) tramadol 50 mg tablet 50 mg PO Q6-8H PRN pain 11/29/24 11/29/24 Unknown History Held on 12/05/24. Instructions: HOLD - resume when okay with provider Allergies Allergy/AdvReac Type Severity Reaction Status Date / Time codeine Allergy Unknown Verified 12/15/24 09:57 Review of Systems Review of Systems: All systems reviewed & are unremarkable except as noted in HPI and below Constitutional: Constitutional: Reports no additional constitutional complaints Cardiovascular: Cardiovascular: Reports no additional cardiovascular complaints Respiratory: Respiratory: Reports no additional respiratory complaints Gastrointestinal: Gastrointestinal: Reports no additional gastrointestinal complaints Genitourinary: Genitourinary: Reports no additional female genitourinary complaints [facility] Past Medical History Medical History (Updated 12/15/24 @ 13:44 by Laith Matos MD) Dementia Chronic indwelling Kaplan catheter CKD (chronic kidney disease) stage 3, GFR 30-59 ml/min With baseline creatinine between 1.3 and 1.6 Iron deficiency anemia History of ESBL E. coli infection Recurrent Clostridioides difficile infection Anemia Pneumonia Stercoral colitis Urinary tract infection due to extended-spectrum beta lactamase (ESBL) producing Escherichia coli Type 2 diabetes mellitus Hypertension C. difficile diarrhea (01/2024) Gastroesophageal reflux disease History of breast cancer Thyroid cancer Hyperlipidemia Peripheral vascular disease Non-STEMI (non-ST elevated myocardial infarction) Combined systolic and diastolic congestive heart failure Echo 01/2024 demonstrated stable systolic dysfunction with EF of 25-30% but worsening diastolic function with grade 3-4 dysfunction with elevated left atrial pressures, mild right ventricular enlargement with hypokinesis of the right ventricle, mild aortic stenosis with mild aortic regurgitation, mild pulmonary hypertension with RVSP of 41 with [id number]-spczukwm pericardial effusion among other abnormalities Neuropathy Psychiatric disorder Surgical History Surgical History (Updated 11/29/24 @ 14:19 by Beba Starks APRN) S/P AKA (above knee amputation) bilateral History of thyroidectomy History of ventral hernia repair With chronic calcified seroma History of above-knee amputation of both lower extremities History of right breast implant Patient reports that it was radiation implant History of lumpectomy of left breast Family History Family History Mother Family history of type 2 diabetes mellitus, Onset Age: 55 Father Acute myocardial infarction, Onset Age: 58 Social History Social History Social History: Surrogate medical decision maker: Ailyn Turner, daughter. Code status: Do not resuscitate with selective treatment (paperwork accompanies the patient). Smoking status: Never smoker Second hand tobacco smoke exposure: No Alcohol intake: unknown Substance use: unknown Substance use type: does not use Do You Feel Safe in your Home?: Yes Lack of Transportation: No Lack of Food: Never True Current Housing: I Do Not Have Housing Concerned About Future Housing: No Difficulty Paying Gas/Electric Bills: No Difficulty Paying for Meds: No Currently Unemployed: No Education: High School Diploma/GED Difficulty w/ Childcare or Family Care: No Spiritual care concerns: No Exam Narrative: GENERAL: Chronically ill-appearing, well-nourished, and in no acute distress. HEAD: Normocephalic, atraumatic. EYES: PERRL and EOMI. ENT: Mucous membranes moist. NECK: Supple. CHEST: Clear to auscultation. No respiratory distress. HEART: Regular rate and rhythm. Normal peripheral pulses. ABDOMEN: Soft, nontender, nondistended. Firm area midline upper abdomen consistent with patient's fluid collection seen on previous CT. EXTREMITIES: Bilateral AKA is noted SKIN: Warm, dry, no rash. NEURO: Alert and oriented x3. Course Course Emergency Course: Patient with UTI. Given IM ceftriaxone. Discharge suffer oxygen. No acute like disturbance. Creatinine in at baseline. Patient is not altered here though she does report being just a touch sleepy. This may be related to her UTI. White count normal. Vital Signs Vital signs: Vital Signs Temperature 97.5 F L 12/15/24 09:38 Pulse Rate 64 12/15/24 09:38 Respiratory Rate 16 12/15/24 09:38 Blood Pressure 139/64 12/15/24 09:38 Pulse Oximetry 100 12/15/24 09:38 Oxygen Delivery Room Air 12/15/24 09:38 Temperature 97.5 F L 12/15/24 09:38 Pulse Rate 66 12/15/24 12:33 Respiratory Rate 15 12/15/24 12:33 Blood Pressure 136/59 L 12/15/24 12:33 Pulse Oximetry 97 12/15/24 12:33 Oxygen Delivery Room Air 12/15/24 09:55 MDM - Altered Mental Status Lab Data 12/15/24 11:03 12/15/24 11:03 Labs: Lab Results 12/15/24 12/15/24 12/15/24 Range/Units 09:55 10:19 11:03 WBC 5.7 (4.5-10.0) K/mm3 RBC 3.27 L (4.2-5.4) M/mm3 Hgb 10.3 L (12.0-15.0) g/dL Hct 33.3 L (37.0-47.0) % MCV 101.8 H (80-100) fl MCH 31.5 (26-34) pg MCHC 30.9 L (32-36) g/dl RDW 17.5 H (11.5-14.5) % Plt Count 144 L (150-375) k/mm3 MPV 9.9 (7.4-10.4) fl Immature Gran % (Auto) 0.4 (0-0.5) % Neut % (Auto) 71.5 (45.5-73.1) % Lymph % (Auto) 18.2 L (18.3-44.2) % Cloud % (Auto) 6.5 (2.6-8.5) % Eos % (Auto) 2.5 (0-4.4) % Baso % (Auto) 0.9 (0.2-1.2) % Lymph # (Auto) 1.03 (0.9-3.2) K/mm3 Cloud # (Auto) 0.4 (0.1-0.6) K/mm3 Eos # (Auto) 0.1 (0-0.3) K/mm3 Baso # (Auto) 0.1 (0.0-0.1) K/mm3 Abs Immat Gran (auto) 0.02 (0.00-0.031) K/mm3 Absolute Neuts (auto) 4.1 (1.3-6.7) K/mm3 Absolute Nucleated RBC 0.000 (0.0-0.012) K/mm3 Nucleated RBC % 0.0 (0.0-0.2) % Sodium 140 (137-145) mmol/L Potassium 3.8 (3.4-5.0) mmol/L Chloride 101 (98-107) mmol/L Carbon Dioxide 30 (22-30) mmol/L Anion Gap 9 (4-12) mmol/L BUN 60 H D (7-17) mg/dL Creatinine 1.34 H (0.7-1.0) mg/dL Estim Creat Clear Calc 35 ml/min Estimated GFR 39 L (59 - ) Glucose 81 (65-110) mg/dL POC Capillary Glucose 95 (65-105) mg/dl Lactic Acid 0.9 (0.7-2.0) mmol/L Calcium 8.3 L (8.4-10.2) mg/dL Total Bilirubin 0.8 (0.2-1.3) mg/dL AST 48 H (14-36) U/L ALT 18 (6-35) U/L Alkaline Phosphatase 44 (38-126) U/L Troponin I < 0.012 (0.000-0.034) ng/mL Total Protein 8.2 (6.3-8.2) g/dL Albumin 3.8 (3.5-5.1) g/dL TSH 7.380 H (0.465-4.680) uIU/mL Urine Color Yellow (Yellow) Urine Appearance Turbid H (Clear) Urine pH 5.0 (5.0-9.0) Ur Specific [place] 1.013 (1.001-1.035) Urine Protein 2+ H (Negative) mg/dL Urine Glucose (UA) Negative (Negative) mg/dL Urine Ketones Negative (Negative) mg/dL Ur Blood (Man) 2+ H (Negative) Urine Nitrate Negative (Negative) Urine Bilirubin Negative (Negative) Urine Urobilinogen 0.2 (<2.0) mg/dL Add Ur Microanalysis Reviewed Leukocyte Esterase Rfl 3+ H (Negative) PABLO/UL Urine RBC 51-100 H (0-2) /hpf Urine WBC >100 H (0-3) /hpf Ur Squamous Epith Cells Moderate (Few) /hpf Urine Bacteria 3+ H /hpf Urine Casts 11-20 Urine Yeast (Budding) Present H (None) /hpf Urine Opiates Screen Negative (Negative) Urine Methadone Screen Negative (Negative) Ur Barbiturates Screen Negative (Negative) Ur Phencyclidine Scrn Negative (Negative) Ur Amphetamine Screen Negative (Negative) U Benzodiazepines Scrn Negative (Negative) Urine Cocaine Screen Negative (Negative) U Cannabinoids Screen Negative (Negative) Ethyl Alcohol < 10 (<10) mg/dL Discharge Plan Discharge Clinical Impression: Acute UTI Patient Disposition: Home Condition: Stable Instructions: Urinary Tract Infection in Women (ED) Additional Instructions: You should return to the emergency department if you develop severe nausea and vomiting and are unable to keep liquids down, if you develop severe back/flank or stomach pain, or if your symptoms are not clearly improving at home. Patient Language: [place] Citizen Prescriptions: New cefuroxime axetil 500 mg tablet 500 mg PO Q12H Qty: 14 0RF No Action atorvastatin 40 mg tablet 40 mg PO HS levothyroxine 100 mcg tablet 100 mcg PO DAILY potassium chloride 10 mEq capsule, extended release 20 meq PO DAILY acetaminophen 325 mg capsule 650 mg PO Q4H PRN (Reason: pain or fever) cyanocobalamin (vitamin B-12) 1,000 mcg capsule 1,000 mcg PO DAILY calcium carbonate-vitamin D3 [Calcium 600 + D(3)] 600 mg-5 mcg (200 unit) capsule 1 cap PO DAILY Multi-Vitamin HP/Minerals Capsule 1 cap PO DAILY magnesium hydroxide [Milk of Magnesia] 400 mg/5 mL Suspension 400 mg PO HS PRN (Reason: Constipation) Rx Instructions: if no BM in 3 days magnesium citrate [Citroma] Solution 296 ml PO DAILY PRN (Reason: Constipation) Rx Instructions: if no results from enema ferrous sulfate 325 mg (65 mg iron) Tablet,Delayed Release (Dr/Ec) 325 mg PO BID Qty: 90 0RF bisacodyl 10 mg suppository 10 mg RECTAL DAILY PRN (Reason: constipation) Rx Instructions: if no results from [facility] insulin aspart U-100 [Novolog U-100 Insulin aspart] 100 unit/mL solution See Rx Instructions .ROUTE .COMPLEX Rx Instructions: 150-200 2 units, 201-250 4 units, 251-300 6 units, 301-350 8 units, 351-400 10 units, 401-500 12 units, over 500 notify furosemide 40 mg Tablet 40 mg PO DAILY Qty: 30 0RF carvedilol [Coreg] 12.5 mg Tablet 12.5 mg PO Q12HR Qty: 60 0RF Patient Comments: not on [facility] medication list isosorbide dinitrate 10 mg Tablet 10 mg PO TID Qty: 90 0RF Patient Comments: not on [facility] medication list hydralazine 10 mg Tablet 10 mg PO TID Qty: 90 0RF Patient Comments: not on [facility] medication list cetirizine 10 mg tablet 10 mg PO DAILY pantoprazole [Protonix] 40 mg tablet,delayed release (DR/EC) 40 mg PO DAILY gabapentin 300 mg capsule 100 mg PO TID Qty: 10 0RF tramadol 50 mg tablet 50 mg PO Q6-8H PRN (Reason: pain) furosemide [Lasix] 20 mg tablet 20 mg PO MOWEFR Qty: 30 0RF Rx Instructions: Every Wrikwh-Lupkfhlba-Ylfibj at 2 PM (to be given in addition to her Lasix 40mg QAM) Follow-up/Referrals: Jadiel Martínez [Other] - 1 Week
[2024-12-15 14:33] VITALS: BP 139/69; PULSE 69; RESP 13; O2SAT 100
[2024-12-15 14:34] VITALS: BP 139/69; PULSE 68; RESP 13; TEMP 36.4; O2SAT 100
== END 2024-12-15 15:43 ==
PROVIDERS: Emergency Medicine; Emergency Provider Emergency Medicine
DX: N39.0 Urinary tract infection, site not specified (principal); F03.90 Unspecified dementia, unspecified severity, without behavioral disturbance, psychotic disturbance, mood disturbance, and anxiety; I13.0 Hypertensive heart and chronic kidney disease with heart failure and stage 1 through stage 4 chronic kidney disease, or unspecified chronic kidney disease; E11.22 Type 2 diabetes mellitus with diabetic chronic kidney disease; N18.30 Chronic kidney disease, stage 3 unspecified; I50.9 Heart failure, unspecified; Z79.4 Long term (current) use of insulin; R94.31 Abnormal electrocardiogram [ECG] [EKG]; D64.9 Anemia, unspecified; K21.9 Gastro-esophageal reflux disease without esophagitis; Z85.3 Personal history of malignant neoplasm of breast; Z85.850 Personal history of malignant neoplasm of thyroid; E78.5 Hyperlipidemia, unspecified; I25.2 Old myocardial infarction
CPT/HCPCS: 36415; 80053; 80307; 81001; 82077; 82948; 83605; 84443; 84484; 85025; 93005; 96372; 99283; J0696; J2003

== ENCOUNTER 2025-01-01 19:30 | Inpatient (IN) | payer MEDICARE, MEDICAID, SELFPAY ==
[2025-01-01] VITALS (17 sets, daily range): BP systolic 92–111; BP diastolic 53–87; PULSE 55–64; RESP 9–20; O2SAT 87–100
--- NOTE | ~2025-01-01 | CT_ITS ---
EXAMINATION: CT brain wo ashe[facility], 01/02/2025 14:00 CDT HISTORY: lethargy COMPARISON: No comparisons available. Technique: Axial images obtained of the brain without contrast. One or more of the following dose reduction techniques were used: automated exposure control, adjustment of the mA and/or kV according to patient size, use of iterative reconstruction technique. Findings: No acute infarct or parenchymal hemorrhage. No abnormal mass or mass effect. No midline shift. No extra-axial fluid collections. No hydrocephalus. Mastoid air cells unremarkable. Sinuses and orbits unremarkable. No acute fracture. No significant facial or scalp soft tissue swelling evident. No radiopaque foreign body is seen. Impression: 1.No acute intracranial abnormality. Reviewed, dictated and finalized at location P. Impression: 1.No acute intracranial abnormality.
--- NOTE | ~2025-01-01 | CT_ITS ---
CTA chest PE protocol HISTORY:SOA . COMPARISON: None. TECHNIQUE: Following the noncontrasted customer success director, axial images of the thorax were obtained following infusion of 100 cc of Isovue 370. Post-processing on an independent workstation was performed to reconstruct MIP images for evaluation of the thoracic vasculature. FINDINGS: There is no pulmonary embolism, aortic dissection, thoracic aneurysm. Moderate pericardial effusion. Heart is enlarged There is a small right pleural effusion and trace left pleural effusion. There are groundglass opacity bilaterally. There is no axillary, mediastinal or hilar adenopathy. Limited evaluation of the upper abdomen demonstrates no gross abnormalities. Review of bone windows demonstrates no osteoblastic or lytic lesions. IMPRESSION: There is no pulmonary embolism, aortic dissection, or thoracic aneurysm. Cardiomegaly and pericardial effusion is noted. There is bilateral pleural effusions with groundglass opacity suggestive of pulmonary edema. All CT scans at this facility are performed using low dose modulation techniques as appropriate to perform exam including the following: automated exposure control; use of iterative reconstruction technique; adjustment of the mA and/or kV according to patient size (this includes techniques or standardized protocols for targeted exams where dose is matched to indication/reason for exam). Reviewed, dictated and finalized at location S. IMPRESSION: There is no pulmonary embolism, aortic dissection, or thoracic aneurysm. Cardiomegaly and pericardial effusion is noted. There is bilateral pleural effusions with groundglass opacity suggestive of pul monary edema. All CT scans at this facility are performed using low dose modulation techniqu es as appropriate to perform exam including the following: automated exposure c ontrol; use of iterative reconstruction technique; adjustment of the mA and/or kV according to patient size (this includes techniques or standardized protocol s for targeted exams where dose is matched to indication/reason for exam).
--- NOTE | ~2025-01-01 | XR_ITS ---
XR chest 1V portable INDICATION:AMS . REFERENCE: None FINDINGS: A single AP of the chest demonstrates enlarged heart. Lungs are underinflated. No focal consolidation. No pleural effusions or pneumothorax. There is no evidence of pneumothorax or pleural effusion. IMPRESSION: No acute pulmonary findings. Reviewed, dictated and finalized at location S.
--- NOTE | ~2025-01-01 | US_ITS ---
EXAMINATION: US venous doppler [facility] DATE: 01/02/2025 14:46 INDICATION: Left arm edema TECHNIQUE: Rodriguez scale images with and without compression and Doppler images of the left upper extremity veins were obtained. COMPARISON: None. FINDINGS: The left internal jugular vein, subclavian vein, axillary vein, brachial veins, basilic vein, cephalic vein, radial vein, and ulnar vein are patent. IMPRESSION: 1. Patent left upper extremity veins. No evidence of deep venous thrombosis. Reviewed, dictated and finalized at location O.
--- NOTE | 2025-01-01 19:31 | ECG_ITS ---
Test Date: 2025-01-01 19:36:06 Measurements Intervals Dexter Rate: 59 P: 36 [place]: 237 QRS: 269 QRSD: 84 T: 171 QT: 461 QTc: 458 Interpretive Statements SINUS BRADYCARDIA WITH FIRST DEGREE AV BLOCK LOW QRS VOLTAGE IN LIMB LEADS EXTENSIVE ANTERIOR INFARCT, AGE INDETERMINATE BORDERLINE ST-T WAVE ABNORMALITY- INF/HIGH LAT LEADS BASELINE WANDER- I, II, AVR, AVL, AVF ABNORMAL ECG Compared to ECG 12/15/2024 09:46:50 NO SIGNIFICANT CHANGE Electronically Signed On 01-02-2025 07:50:14 CDT by Rowdy Law D.O.
[2025-01-01] MEDS: NALOXONE HCL 0.4 MG/ML VIAL IV PUSH (20:07)
[2025-01-01 20:13] LABS: Hematocrit 31.5 % (37.0-47.0); Hemoglobin 9.8 g/dL (12.0-15.0); Immature Granulocyte Percent A 0.4 % (0-0.5); Lymphocytes Absolute Auto 0.83 K/mm3 (0.9-3.2); Mean Corpuscular HGB Conc 31.1 g/dl (32-36); Mean Corpuscular Hemoglobin 31.7 pg (26-34); Mean Corpuscular Volume 101.9 fl (80-100); Nucleated Red Blood Cells Absolute Auto 0.000 K/mm3 (0.0-0.012); Nucleated Red Blood Cells Perc 0.0 % (0.0-0.2); Platelet Count Result 131 k/mm3 (150-375); Red Blood Count 3.09 M/mm3 (4.2-5.4); White Blood Count 5.1 K/mm3 (4.5-10.0)
[2025-01-01 20:20] LABS: Add Urine Microscopic? YES; Appearance Urine Cloudy (Clear); Glucose Urine UA Negative (Negative); Leukocyte Esterase Ur 3+ LEU/UL (Negative); Need Manual Microscopic Reviewed; Nitrate Urine Negative (Negative); Specific Grav Ur 1.008 (1.001-1.035)
[2025-01-01 20:41] LABS: INR 1.6; Prothrombin Time 19.4 Seconds (11.1-14.7)
[2025-01-01 20:42] LABS: Partial Thromboplastin Time 32.7 Seconds (22.3-36.8)
[2025-01-01 20:43] LABS: Alanine Aminotransferase 12 U/L (6-35); Albumin Level 3.6 g/dL (3.5-5.1); Alkaline Phosphatase 49 U/L (38-126); Anion Gap 10 mmol/L (4-12); Aspartate Amino Transferase 28 U/L (14-36); Bilirubin,Total 0.9 mg/dL (0.2-1.3); Blood Urea Nitrogen 51 mg/dL (7-17); Calcium 8.0 mg/dL (8.4-10.2); Carbon Dioxide 29 mmol/L (22-30); Chloride 98 mmol/L (98-107); Estimated CRCL calculation 42 ml/min; Estimated Glomerular Filt Rate 45; Glucose 121 mg/dL (65-110); Potassium 3.4 mmol/L (3.4-5.0); Sodium 137 mmol/L (137-145); Total Protein 7.5 g/dL (6.3-8.2)
--- NOTE | 2025-01-01 21:20 | ED.GENADULT ---
HPI - General Adult General Chief complaint: Weakness <Laith Matos MD - Last Filed: 01/01/25 22:15> Stated complaint: AMS, LETHARGIC <Laith Matos MD - Last Filed: 01/01/25 22:15> Time Seen by Provider: 01/01/25 19:55 <Laith Matos MD - Last Filed: 01/01/25 22:15> History of Present Illness HPI narrative: Patient is a 69-year-old female who presents ER with reports of altered mental status. Was seen at [facility] 30 a.m. and now she is more lethargic. If he rubbed her chest she wakes up in answers all orientation questions. She reports she is not know why she is sleepy. The only him pain medication on her med list is tramadol. She does have naloxone listed as a medication she could receive. Patient has chronic indwelling Kaplan. <Laith Matos MD - Last Filed: 01/01/25 22:15> Related Data Home medications: Home Medications ?Medication ?Instructions ?Recorded ?Confirmed ?Last Taken ?Type atorvastatin 40 mg tablet 40 mg PO HS 12/05/21 11/29/24 10/04/24 History levothyroxine 100 mcg tablet 100 mcg PO DAILY 12/05/21 11/29/24 10/05/24 History potassium chloride 10 mEq 20 meq PO DAILY 05/16/22 11/29/24 11/29/24 History capsule,extended release Held on 12/05/24. Instructions: HOLD - resume when okay with provider magnesium citrate (Citroma oral 296 ml PO DAILY PRN Constipation 02/15/24 11/29/24 Unknown History solution) magnesium hydroxide 400 mg/5 mL 400 mg PO HS PRN Constipation 02/15/24 11/29/24 Unknown History oral suspension (Milk of Magnesia) acetaminophen 325 mg capsule 650 mg PO Q4H PRN pain or fever 05/04/24 11/29/24 Unknown History calcium 600 mg (as 1 cap PO DAILY 05/04/24 11/29/24 10/05/24 History carbonate)-vitamin D3 5 mcg (200 unit) capsule (Calcium 600 + D(3)) cyanocobalamin (vitamin B-12) 1,000 mcg PO DAILY 05/04/24 11/29/24 10/05/24 History 1,000 mcg capsule multivitamin,tx-minerals 1 cap PO DAILY 05/04/24 11/29/24 10/05/24 History (Multi-Vitamin HP/Minerals capsule) bisacodyl 10 mg rectal suppository 10 mg RECTAL DAILY PRN constipation 07/06/24 11/29/24 Unknown History insulin aspart U-100 100 unit/mL See Rx Instructions .Route .COMPLEX 07/06/24 11/29/24 10/05/24 History subcutaneous solution (Novolog U-100 Insulin aspart) cetirizine 10 mg tablet 10 mg PO DAILY 10/05/24 11/29/24 10/05/24 History pantoprazole 40 mg tablet,delayed 40 mg PO DAILY 10/05/24 11/29/24 10/05/24 History release (Protonix) tramadol 50 mg tablet 50 mg PO Q6-8H PRN pain 11/29/24 11/29/24 Unknown History Held on 12/05/24. Instructions: HOLD - resume when okay with provider <Laith Matos MD - Last Filed: 01/01/25 22:15> Allergies/adverse reactions: Allergies Allergy/AdvReac Type Severity Reaction Status Date / Time codeine Allergy Unknown Verified 12/15/24 09:57 <Laith Matos MD - Last Filed: 01/01/25 22:15> Review of Systems Review of Systems: All systems reviewed & are unremarkable except as noted in HPI and below <Laith Matos MD - Last Filed: 01/01/25 22:15> Constitutional: Constitutional: Reports no additional constitutional complaints <Laith Matos MD - Last Filed: 01/01/25 22:15> ENT: Reports system reviewed and no additional complaints, except as documented <Laith Matos MD - Last Filed: 01/01/25 22:15> Cardiovascular: Cardiovascular: Reports no additional cardiovascular complaints <Laith Matos MD - Last Filed: 01/01/25 22:15> Respiratory: Respiratory: Reports no additional respiratory complaints <Laith Matos MD - Last Filed: 01/01/25 22:15> PMFSH Past Medical History Medical History: Medical History (Updated 01/01/25 @ 23:17 by Lazaro Pederson MD) Dementia Chronic indwelling Kaplan catheter CKD (chronic kidney disease) stage 3, GFR 30-59 ml/min With baseline creatinine between 1.3 and 1.6 Iron deficiency anemia History of ESBL E. coli infection Recurrent Clostridioides difficile infection Anemia Pneumonia Stercoral colitis Urinary tract infection due to extended-spectrum beta lactamase (ESBL) producing Escherichia coli 01/2024 Type 2 diabetes mellitus Hypertension C. difficile diarrhea (01/2024) Gastroesophageal reflux disease History of breast cancer Thyroid cancer Hyperlipidemia Peripheral vascular disease Non-STEMI (non-ST elevated myocardial infarction) Combined systolic and diastolic congestive heart failure Echo 01/2024 demonstrated stable systolic dysfunction with EF of 25-30% but worsening diastolic function with grade 3-4 dysfunction with elevated left atrial pressures, mild right ventricular enlargement with hypokinesis of the right ventricle, mild aortic stenosis with mild aortic regurgitation, mild pulmonary hypertension with RVSP of 41 with [id number]-rb-[id number] pericardial effusion among other abnormalities Neuropathy Psychiatric disorder <Laith Matos MD - Last Filed: 01/01/25 22:15> Surgical History Surgical History: Surgical History (Updated 11/29/24 @ 14:19 by Beba Starks APRN) S/P AKA (above knee amputation) bilateral History of thyroidectomy History of ventral hernia repair With chronic calcified seroma History of above-knee amputation of both lower extremities History of right breast implant Patient reports that it was radiation implant History of lumpectomy of left breast <Laith Matos MD - Last Filed: 01/01/25 22:15> Family History Family History: Family History Mother Family history of type 2 diabetes mellitus, Onset Age: 55 Father Acute myocardial infarction, Onset Age: 58 <Laith Matos MD - Last Filed: 01/01/25 22:15> Social History Social History: Social History Social History: Surrogate medical decision maker: Ailyn Turner, daughter. Code status: Do not resuscitate with selective treatment (paperwork accompanies the patient). Smoking status: Never smoker Second hand tobacco smoke exposure: No Alcohol intake: unknown Substance use: unknown Substance use type: does not use Do You Feel Safe in your Home?: Yes Lack of Transportation: No Lack of Food: Never True Current Housing: I Do Not Have Housing Concerned About Future Housing: No Difficulty Paying Gas/Electric Bills: No Difficulty Paying for Meds: No Currently Unemployed: No Education: High School Diploma/GED Difficulty w/ Childcare or Family Care: No Spiritual care concerns: No <Laith Matos MD - Last Filed: 01/01/25 22:15> Exam Narrative: GENERAL: Chronically ill-appearing, well-nourished, and in no acute distress. HEAD: Normocephalic, atraumatic. EYES: PERRL and EOMI. ENT: Mucous membranes moist. CHEST: Clear to auscultation. No respiratory distress. HEART: Regular rate and rhythm. Normal peripheral pulses. ABDOMEN: Soft, nontender, nondistended. EXTREMITIES: Bilateral AKA. SKIN: Warm, dry, no rash. NEURO: Alert and oriented x3. <Laith Matos MD - Last Filed: 01/01/25 22:15> Course Course Emergency Course: Patient started waking up before she received Narcan. Urinalysis with infection. Ceftriaxone given here. No elevation white blood cell count. Hemoglobin 9.8. Creatinine 1.18. When off of oxygen patient's O2 sat is 89% with a good plateau when she is white awake. She is requiring at least 1-2 L to maintain oxygenation at 98 to 100%.. Her BUN was slightly elevated so she received 500 mL of IV fluid. She is much more awake. Speaking in full sentences. X-ray without pulmonary edema or pneumonia. <Laith Matos MD - Last Filed: 01/01/25 22:15> Patient started waking up before she received Narcan. Urinalysis with infection. Ceftriaxone given here. No elevation white blood cell count. Hemoglobin 9.8. Creatinine 1.18. When off of oxygen patient's O2 sat is 89% with a good plateau when she is white awake. She is requiring at least 1-2 L to maintain oxygenation at 98 to 100%.. Her BUN was slightly elevated so she received 500 mL of IV fluid. She is much more awake. Speaking in full sentences. X-ray without pulmonary edema or pneumonia.. [facility]-patient care signed out to me at 10:00 p.m. by previous provider pending completion of workup and CT angiography. CT angiography shows no PE but she does have bilateral pleural effusions right worse than left as well as some pericardial effusion that was evident on her ultrasound last month for her echocardiogram that showed biventricular systolic dysfunction and atrial enlargement. Patient is saturating 90% on 1-1.5 L but 87 % on room air so she is currently oxygen dependent. No tachycardia, blood pressure 1/87. CT shows no pneumonia. Given Rocephin for UTI based on culture results recently. Spoke to the hospitalist who accepted the patient to a telemetry monitored bed. Patient is DNR DNI. <Lazaro Pederson MD - Last Filed: 01/01/25 23:17> Vital Signs Vital signs: Vital Signs Pulse Rate 59 L 01/01/25 19:32 Respiratory Rate 16 01/01/25 19:32 Blood Pressure 109/87 01/01/25 19:32 Pulse Oximetry 87 L 01/01/25 19:32 Oxygen Delivery Room Air 01/01/25 19:32 Pulse Rate 61 01/01/25 21:54 Respiratory Rate 20 01/01/25 21:54 Blood Pressure 92/71 L 01/01/25 21:54 Pulse Oximetry 98 01/01/25 22:20 Oxygen Delivery Nasal Cannula 01/01/25 22:20 Oxygen Flow Rate 1 01/01/25 22:20 <Laith Matos MD - Last Filed: 01/01/25 22:15> Vital Signs Pulse Rate 59 L 01/01/25 19:32 Respiratory Rate 16 01/01/25 19:32 Blood Pressure 109/87 01/01/25 19:32 Pulse Oximetry 87 L 01/01/25 19:32 Oxygen Delivery Room Air 01/01/25 19:32 Pulse Rate 61 01/01/25 21:54 Respiratory Rate 20 01/01/25 21:54 Blood Pressure 92/71 L 01/01/25 21:54 Pulse Oximetry 98 01/01/25 22:20 Oxygen Delivery Nasal Cannula 01/01/25 22:20 Oxygen Flow Rate 1 01/01/25 22:20 <Lazaro Pederson MD - Last Filed: 01/01/25 23:17> Medical Decision Making Vital Signs Vital Signs: Vital Signs Pulse Rate 59 L 01/01/25 19:32 Respiratory Rate 16 01/01/25 19:32 Blood Pressure 109/87 01/01/25 19:32 Pulse Oximetry 87 L 01/01/25 19:32 Oxygen Delivery Room Air 01/01/25 19:32 Pulse Rate 61 01/01/25 21:54 Respiratory Rate 20 01/01/25 21:54 Blood Pressure 92/71 L 01/01/25 21:54 Pulse Oximetry 98 01/01/25 22:20 Oxygen Delivery Nasal Cannula 01/01/25 22:20 Oxygen Flow Rate 1 01/01/25 22:20 <Laith Matos MD - Last Filed: 01/01/25 22:15> Vital Signs Pulse Rate 59 L 01/01/25 19:32 Respiratory Rate 16 01/01/25 19:32 Blood Pressure 109/87 01/01/25 19:32 Pulse Oximetry 87 L 01/01/25 19:32 Oxygen Delivery Room Air 01/01/25 19:32 Pulse Rate 61 01/01/25 21:54 Respiratory Rate 20 01/01/25 21:54 Blood Pressure 92/71 L 01/01/25 21:54 Pulse Oximetry 98 01/01/25 22:20 Oxygen Delivery Nasal Cannula 01/01/25 22:20 Oxygen Flow Rate 1 01/01/25 22:20 <Lazaro Pederson MD - Last Filed: 01/01/25 23:17> Lab Data Result diagrams: 01/01/25 19:51 01/01/25 20:23 <Laith Matos MD - Last Filed: 01/01/25 22:15> Labs: Lab Results 01/01/25 01/01/25 01/01/25 Range/Units 19:51 20:23 22:19 WBC 5.1 (4.5-10.0) K/mm3 RBC 3.09 L (4.2-5.4) M/mm3 Hgb 9.8 L (12.0-15.0) g/dL Hct 31.5 L (37.0-47.0) % MCV 101.9 H (80-100) fl MCH 31.7 (26-34) pg MCHC 31.1 L (32-36) g/dl RDW 18.2 H (11.5-14.5) % Plt Count 131 L (150-375) k/mm3 MPV 11.0 H (7.4-10.4) fl Immature Gran % (Auto) 0.4 (0-0.5) % Neut % (Auto) 71.2 (45.5-73.1) % Lymph % (Auto) 16.4 L (18.3-44.2) % [place] % (Auto) 5.9 (2.6-8.5) % Eos % (Auto) 5.3 H (0-4.4) % Baso % (Auto) 0.8 (0.2-1.2) % Lymph # (Auto) 0.83 L (0.9-3.2) K/mm3 [place] # (Auto) 0.3 (0.1-0.6) K/mm3 Eos # (Auto) 0.3 (0-0.3) K/mm3 Baso # (Auto) 0.0 (0.0-0.1) K/mm3 Abs Immat Gran (auto) 0.02 (0.00-0.031) K/mm3 Absolute Neuts (auto) 3.6 (1.3-6.7) K/mm3 Absolute Nucleated RBC 0.000 (0.0-0.012) K/mm3 Nucleated RBC % 0.0 (0.0-0.2) % PT 19.4 H (11.1-14.7) Seconds INR 1.6 APTT 32.7 (22.3-36.8) Seconds Methemoglobin 0.0 (0-1.5) %THb Sodium 137 (137-145) mmol/L Potassium 3.4 (3.4-5.0) mmol/L Chloride 98 (98-107) mmol/L Carbon Dioxide 29 (22-30) mmol/L Anion Gap 10 (4-12) mmol/L BUN 51 H (7-17) mg/dL Creatinine 1.18 H (0.7-1.0) mg/dL Estim Creat Clear Calc 42 ml/min Estimated GFR 45 L (59 - ) Glucose 121 H (65-110) mg/dL Calcium 8.0 L (8.4-10.2) mg/dL Total Bilirubin 0.9 (0.2-1.3) mg/dL AST 28 (14-36) U/L ALT 12 (6-35) U/L Alkaline Phosphatase 49 (38-126) U/L Total Protein 7.5 (6.3-8.2) g/dL Albumin 3.6 (3.5-5.1) g/dL Urine Color Yellow (Yellow) Urine Appearance Cloudy H (Clear) Urine pH 5.0 (5.0-9.0) Ur Specific [place] 1.008 (1.001-1.035) Urine Protein 1+ H (Negative) mg/dL Urine Glucose (UA) Negative (Negative) mg/dL Urine Ketones Negative (Negative) mg/dL Ur Blood (Man) 1+ H (Negative) Urine Nitrate Negative (Negative) Urine Bilirubin Negative (Negative) Urine Urobilinogen 0.2 (<2.0) mg/dL Add Ur Microanalysis Reviewed Leukocyte Esterase Rfl 3+ H (Negative) PABLO/UL Urine RBC 21-50 H (0-2) /hpf Urine WBC >100 H (0-3) /hpf Ur Squamous Epith Cells Few (Few) /hpf Urine Bacteria 3+ H /hpf Urine Casts 3-5 <Laith Matos MD - Last Filed: 01/01/25 22:15> Lab Results 01/01/25 01/01/25 01/01/25 Range/Units 19:51 20:23 22:19 WBC 5.1 (4.5-10.0) K/mm3 RBC 3.09 L (4.2-5.4) M/mm3 Hgb 9.8 L (12.0-15.0) g/dL Hct 31.5 L (37.0-47.0) % MCV 101.9 H (80-100) fl MCH 31.7 (26-34) pg MCHC 31.1 L (32-36) g/dl RDW 18.2 H (11.5-14.5) % Plt Count 131 L (150-375) k/mm3 MPV 11.0 H (7.4-10.4) fl Immature Gran % (Auto) 0.4 (0-0.5) % Neut % (Auto) 71.2 (45.5-73.1) % Lymph % (Auto) 16.4 L (18.3-44.2) % [place] % (Auto) 5.9 (2.6-8.5) % Eos % (Auto) 5.3 H (0-4.4) % Baso % (Auto) 0.8 (0.2-1.2) % Lymph # (Auto) 0.83 L (0.9-3.2) K/mm3 [place] # (Auto) 0.3 (0.1-0.6) K/mm3 Eos # (Auto) 0.3 (0-0.3) K/mm3 Baso # (Auto) 0.0 (0.0-0.1) K/mm3 Abs Immat Gran (auto) 0.02 (0.00-0.031) K/mm3 Absolute Neuts (auto) 3.6 (1.3-6.7) K/mm3 Absolute Nucleated RBC 0.000 (0.0-0.012) K/mm3 Nucleated RBC % 0.0 (0.0-0.2) % PT 19.4 H (11.1-14.7) Seconds INR 1.6 APTT 32.7 (22.3-36.8) Seconds Methemoglobin 0.0 (0-1.5) %THb Sodium 137 (137-145) mmol/L Potassium 3.4 (3.4-5.0) mmol/L Chloride 98 (98-107) mmol/L Carbon Dioxide 29 (22-30) mmol/L Anion Gap 10 (4-12) mmol/L BUN 51 H (7-17) mg/dL Creatinine 1.18 H (0.7-1.0) mg/dL Estim Creat Clear Calc 42 ml/min Estimated GFR 45 L (59 - ) Glucose 121 H (65-110) mg/dL Calcium 8.0 L (8.4-10.2) mg/dL Total Bilirubin 0.9 (0.2-1.3) mg/dL AST 28 (14-36) U/L ALT 12 (6-35) U/L Alkaline Phosphatase 49 (38-126) U/L Total Protein 7.5 (6.3-8.2) g/dL Albumin 3.6 (3.5-5.1) g/dL Urine Color Yellow (Yellow) Urine Appearance Cloudy H (Clear) Urine pH 5.0 (5.0-9.0) Ur Specific [place] 1.008 (1.001-1.035) Urine Protein 1+ H (Negative) mg/dL Urine Glucose (UA) Negative (Negative) mg/dL Urine Ketones Negative (Negative) mg/dL Ur Blood (Man) 1+ H (Negative) Urine Nitrate Negative (Negative) Urine Bilirubin Negative (Negative) Urine Urobilinogen 0.2 (<2.0) mg/dL Add Ur Microanalysis Reviewed Leukocyte Esterase Rfl 3+ H (Negative) PABLO/UL Urine RBC 21-50 H (0-2) /hpf Urine WBC >100 H (0-3) /hpf Ur Squamous Epith Cells Few (Few) /hpf Urine Bacteria 3+ H /hpf Urine Casts 3-5 <Lazaro Pederson MD - Last Filed: 01/01/25 23:17> ABG Data ABG results: 01/01/25 22:19 Puncture Site Right radial ABG pH 7.386 ABG pCO2 47.0 H ABG pO2 79.9 L ABG PO2/FiO2 Ratio 3.07 ABG HCO3 27.6 H ABG O2 Saturation 95.6 ABG O2 Content 14.3 L ABG Base Excess 2.1 A-a Gradient 49.8 Oxyhemoglobin 93.8 Carboxyhemoglobin 0.8 Reduced Hemoglobin 5.4 H Total Hemoglobin 10.8 L O2 Delivery Device Nasal cannula O2 Liters/Min 1.5 FiO2 26 <Laith Matos MD - Last Filed: 01/01/25 22:15> 01/01/25 22:19 Puncture Site Right radial ABG pH 7.386 ABG pCO2 47.0 H ABG pO2 79.9 L ABG PO2/FiO2 Ratio 3.07 ABG HCO3 27.6 H ABG O2 Saturation 95.6 ABG O2 Content 14.3 L ABG Base Excess 2.1 A-a Gradient 49.8 Oxyhemoglobin 93.8 Carboxyhemoglobin 0.8 Reduced Hemoglobin 5.4 H Total Hemoglobin 10.8 L O2 Delivery Device Nasal cannula O2 Liters/Min 1.5 FiO2 26 <Lazaro Pederson MD - Last Filed: 01/01/25 23:17> Imaging Data Radiologist's impression: ITS Impressions Chest X-Ray 01/01/25 22:08 IMPRESSION: No acute pulmonary findings. <Laith Matos MD - Last Filed: 01/01/25 22:15> Critical Care Time Critical Care Time Critical Care Time: Yes <Lazaro Pederson MD - Last Filed: 01/01/25 23:17> Total Critical Care Time: 35 <Lazaro Pederson MD - Last Filed: 01/01/25 23:17> Discharge Plan Discharge Clinical Impression: Acute exacerbation of CHF (congestive heart failure), Acute UTI, Chronic pericardial effusion, Hypoxemia requiring supplemental oxygen <Laith Matos MD - Last Filed: 01/01/25 22:15> Patient Disposition: Still a Patient <Laith Matos MD - Last Filed: 01/01/25 22:15> Condition: Stable <Laith Matos MD - Last Filed: 01/01/25 22:15> Patient Language: Georgian <Laith Matos MD - Last Filed: 01/01/25 22:15> Prescriptions: No Action atorvastatin 40 mg tablet 40 mg PO HS levothyroxine 100 mcg tablet 100 mcg PO DAILY potassium chloride 10 mEq capsule, extended release 20 meq PO DAILY acetaminophen 325 mg capsule 650 mg PO Q4H PRN (Reason: pain or fever) cyanocobalamin (vitamin B-12) 1,000 mcg capsule 1,000 mcg PO DAILY calcium carbonate-vitamin D3 [Calcium 600 + D(3)] 600 mg-5 mcg (200 unit) capsule 1 cap PO DAILY Multi-Vitamin HP/Minerals Capsule 1 cap PO DAILY magnesium hydroxide [Milk of Magnesia] 400 mg/5 mL Suspension 400 mg PO HS PRN (Reason: Constipation) Rx Instructions: if no BM in 3 days magnesium citrate [Citroma] Solution 296 ml PO DAILY PRN (Reason: Constipation) Rx Instructions: if no results from enema ferrous sulfate 325 mg (65 mg iron) Tablet,Delayed Release (Dr/Ec) 325 mg PO BID Qty: 90 0RF bisacodyl 10 mg suppository 10 mg RECTAL DAILY PRN (Reason: constipation) Rx Instructions: if no results from [facility] insulin aspart U-100 [Novolog U-100 Insulin aspart] 100 unit/mL solution See Rx Instructions .ROUTE .COMPLEX Rx Instructions: 150-200 2 units, 201-250 4 units, 251-300 6 units, 301-350 8 units, 351-400 10 units, 401-500 12 units, over 500 notify furosemide 40 mg Tablet 40 mg PO DAILY Qty: 30 0RF carvedilol [Coreg] 12.5 mg Tablet 12.5 mg PO Q12HR Qty: 60 0RF Patient Comments: not on [facility] medication list isosorbide dinitrate 10 mg Tablet 10 mg PO TID Qty: 90 0RF Patient Comments: not on [facility] medication list hydralazine 10 mg Tablet 10 mg PO TID Qty: 90 0RF Patient Comments: not on [facility] medication list cetirizine 10 mg tablet 10 mg PO DAILY pantoprazole [Protonix] 40 mg tablet,delayed release (DR/EC) 40 mg PO DAILY gabapentin 300 mg capsule 100 mg PO TID Qty: 10 0RF tramadol 50 mg tablet 50 mg PO Q6-8H PRN (Reason: pain) furosemide [Lasix] 20 mg tablet 20 mg PO MOWEFR Qty: 30 0RF Rx Instructions: Every Mgebpt-Zxtraiwdc-Mbkfdx at 2 PM (to be given in addition to her Lasix 40mg QAM) cefuroxime axetil 500 mg tablet 500 mg PO Q12H Qty: 14 0RF <Laith Matos MD - Last Filed: 01/01/25 22:15> Follow-up/Referrals: Jadiel Martínez [Other] <Laith Matos MD - Last Filed: 01/01/25 22:15> Time of Disposition: 23:17 <Laith Matos MD - Last Filed: 01/01/25 22:15> 23:17 <Lazaro Pederson MD - Last Filed: 01/01/25 23:17>
[2025-01-01] MEDS: cefTRIAXone 1 GM in SODIUM CHLORIDE 0.9% IV 50 ML 100 ML IVPB (21:25)
[2025-01-01] MEDS: SODIUM CHLORIDE 0.9% IV 1,000 ML 999 ML IV CONT (21:53)
[2025-01-01 22:40] LABS: Alveolar/Arterial O2 Gradient 49.8 mmHg; Carboxyhemoglobin 0.8 % THb (0-2.0); Fractional Inspired Oxygen 26 %; HCO3 ABG 27.6 mEq/l (22.0-26.0); Methemoglobin ABG 0.0 %THb (0-1.5); Oxygen Content ABG 14.3 %vol (16.0-22.0); Oxygen Saturation ABG 95.6 % (95.0-100.0); PCO2 ABG 47.0 mmHg (35.0-45.0); PO2 ABG 79.9 mmHg (80.0-100.0); PO2 FiO2 Ratio Arterial Blood 3.07 %; Reduced Hemoglobin 5.4 %THb (0-5.0)
[2025-01-01 22:47] LABS: Liters per Minute 1.5 LPM; Modified Allen's Test Pass; Site Drawn RIGHT RADIAL
[2025-01-01] MEDS: FUROSEMIDE INJ 40 MG/4 ML VIAL IV PUSH (23:15)
[2025-01-02] VITALS (13 sets, daily range): BP systolic 95–155; BP diastolic 42–72; PULSE 51–77; RESP 12–19; TEMP 36.3–36.8; O2SAT 94–98; BMI 27.6
--- NOTE | 2025-01-02 | ECHO_ITS ---
Patient Info Name: Iris Pascual Age: 69 years : 1955 Gender: Female Ht: 66 in Wt: 171 lbs BSA: 1.92 m2 HR: 64 bpm BP: 155 / 65 mmHg Technical Quality: Good Exam Date: 01/02/2025 11:29 AM Patient Status: I Admit Date: 01/01/2025 Exam Type: CA echo dop color flow w con Complete two-dimensional, color flow and Doppler transthoracic echocardiogram is performed with contrast to opacify the left ventricle and to improve the deliniation of the left ventricle endocardial borders. Staff Referring Physician: Roman Quintero Plant And Instrument Engineer: Lynne Singh Attending Provider: Chantelle Gonsales Contrast/Agitated Saline Contrast/Ag. Saline: Definity Amount: 2.00 ml Summary 1. The left ventricle is normal in size with severely reduced systolic function. The left ventricular ejection fraction is visually estimated to be 10-20%. There is grade 2 diastolic dysfunction. 2. The right ventricle is normal in size with mildly reduced systolic function. 3. There is ventricular septal flattening during diastole suggestive elevated right heart filling pressures. 4. There is mild valvular disease. 5. There is a moderate size pericardial effusion loculated along the posterior wall of the left ventricle. There is no echocardiographic evidence cardiac tamponade. 6. There is moderate pulmonary hypertension. Pulmonary arterial systolic pressure is estimated at 67 mmHg. Left Ventricle The left ventricle is normal in size with severely reduced systolic function. The left ventricular ejection fraction is visually estimated to be 10-20%. There is grade 2 diastolic dysfunction. Right Ventricle The right ventricle is normal in size with mildly reduced systolic function. Ventricular Septum There is ventricular septal flattening during diastole suggestive elevated right heart filling pressures. Left Atria The left atrium is mildly dilated. Right Atria The right atrium is mildly dilated. Atrial Septum The atrial septum is normal. Aortic Valve The aortic valve leaflets are thickened and likely trileaflet. There is no aortic stenosis. There is mild aortic regurgitation. Pulmonic Valve The pulmonic valve is normal. There is mild pulmonic valve regurgitation. Mitral Valve The mitral valve leaflets are thickened. There is no mitral stenosis. There is mild mitral regurgitation. Tricuspid Valve The tricuspid valve is normal. There is mild tricuspid regurgitation. Pulmonary Arteries There is moderate pulmonary hypertension. Pulmonary arterial systolic pressure is estimated at 67 mmHg. Pericardium/Pleural There is a moderate size pericardial effusion loculated along the posterior wall of the left ventricle. There is no echocardiographic evidence cardiac tamponade. Inferior Vena Cava Dilated inferior vena cava with <50% collapse upon inspiration consistent with significantly elevated right atrial pressure, 15 mmHg. Aorta The aortic root at the level of the sinus of Valsalva measures 2.4 cm in diameter. Left Ventricular Outflow Tract Name Value Normal LVOT 2D LVOT Diameter 2.0 cm LVOT Doppler LVOT Peak Velocity 106 cm/s LVOT Peak Gradient 4 mmHg LVOT Mean Gradient 2 mmHg LVOT VTI 22 cm LVOT Stroke Volume 71 ml LVOT CO 4.6 l/min LVOT CI 2.4 l/min/m2 Pulmonic Valve Name Value Normal RVOT Doppler RVOT Peak Velocity 33 cm/s RVOT Peak Gradient 0 mmHg PV Doppler PV Peak Velocity 75 cm/s PV Peak Gradient 2 mmHg PV Regurgitation Doppler TN Peak End Diastolic Velocity 113 cm/s Mitral Valve Name Value Normal MV Diastolic Function MV E Peak Velocity 90 cm/s MV A Peak Velocity 84 cm/s MV E/A 1.1 MV Decel Time (PW) 279 ms MV Annular TDI MV E/e' (Septal) 29.4 MV E/e' (Lateral) 16.3 MV E/e' (Average) 22.8 Tricuspid Valve Name Value Normal TV Regurgitation Doppler TR Peak Velocity 360 cm/s TR Peak Gradient 52 mmHg Estimated PAP/RSVP RA Pressure 15 mmHg <=5 PA Systolic Pressure 67 mmHg <36 RV Systolic Pressure 67 mmHg <36 Aortic Valve Name Value Normal AV Doppler AV Peak Velocity 170 cm/s AV Peak Gradient 12 mmHg AV Area (Cont Eq Jesus) 2.0 cm2 AV DI (Jesus) 0.62 AV Regurgitation 2D LVOT Area 3.2 cm2 Ventricles Name Value Normal LV Dimensions 2D/MM IVS Diastolic Thickness (2D) 1.2 cm 0.6-1.0 LVID Diastole (2D) 4.2 cm 3.8-5.2 LVIW Diastolic Thickness (2D) 1.1 cm 0.6-0.9 LVID Systole (2D) 3.8 cm 2.2-3.5 LVOT Diameter 2.0 cm LV Mass (2D Cubed) 163.64 g 67.00-162.00 LV Mass Index (2D Cubed) 85 g/m2 43-95 Relative Wall Thickness (2D) 0.50 <=0.42 LV Fractional Shortening/Ejection Fraction 2D/MM LV Fractional Shortening (2D) 11 % 27-45 LV EF (2D Teichholz) 24 % LV Diastolic Volume (4C MOD) 100 ml LV EF (4C MOD) 17 % LV Diastolic Volume (2C MOD) 103 ml LV EF (2C MOD) 25 % LV Diastolic Volume (BP MOD) 104 ml 46-106 LV Diastolic Volume Index (BP MOD) 54 ml/m2 29-61 LV Systolic Volume (BP MOD) 80 ml 14-42 LV Systolic Volume Index (BP MOD) 42 ml/m2 8-24 LV EF (BP MOD) 23 % 54-74 LV Diastolic Length (4C) 7.3 cm LV Systolic Length (4C) 7.2 cm LV Stroke Volume (4C MOD) 17 ml Atria Name Value Normal LA Dimensions LA Volume (4C A-L) 52 ml LA Volume (BP A-L) 67 ml RA Dimensions RA Systolic Major [place] Length (4C) 6.0 cm 2.2-2.8 RA Area (4C) 20.3 cm2 <=18.0 Report Signatures
--- NOTE | 2025-01-02 00:18 | PM.IMHP ---
H&P: HPI History of Present Illness Date/Time: 01/02/25 00:18 Chief Complaint: Lethargy Narrative: 69-year-old female presents to [facility] ER on 01/01/2025 from local nursing facility with lethargy. She is more sleepy than usual however she is easily arousable and A&O x3. 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 In the ER SpO2 low, requiring 1-2 L of nasal cannula to maintain adequate oxygenation. Confirmed with ABG with PO2 80 on 1.5 L nasal cannula. WBC 51, hemoglobin 9.8, INR 1.6, BUN 51, serum creatinine 1.18, glucose 121, urinalysis grossly abnormal considering indwelling Kaplan catheter, 3+ leukocyte esterase, 1+ blood, greater than 100 wbc's, few squamous cells, 3+ bacteria, 3-5 urine casts, no yeast noted. No BNP drawn. Subsequently a CTA chest PE protocol negative for PE, there is small right pleural effusion, trace left pleural effusion, ground-glass opacities suggestive of pulmonary edema, moderate pericardial effusion. Echocardiogram from 11/29/2024 demonstrating small posterior pericardial effusion. She is otherwise hemodynamically stable. It appears she was initially given 1 L normal saline bolus, later given 40 mg IV x1, ceftriaxone 1 g IV x1. It appears naloxone was ordered reported not given as she at improved before administration. Patient denies any symptoms. Review of Systems Review of Systems: All systems reviewed & are unremarkable except as noted in HPI and below (Subjective) [facility] Past Medical History Medical History (Updated 01/01/25 @ 23:17 by Lazaro Pederson MD) Dementia Chronic indwelling Kaplan catheter CKD (chronic kidney disease) stage 3, GFR 30-59 ml/min With baseline creatinine between 1.3 and 1.6 Iron deficiency anemia History of ESBL E. coli infection Recurrent Clostridioides difficile infection Anemia Pneumonia Stercoral colitis Urinary tract infection due to extended-spectrum beta lactamase (ESBL) producing Escherichia coli 01/2024 Type 2 diabetes mellitus Hypertension C. difficile diarrhea (01/2024) Gastroesophageal reflux disease History of breast cancer Thyroid cancer Hyperlipidemia Peripheral vascular disease Non-STEMI (non-ST elevated myocardial infarction) Combined systolic and diastolic congestive heart failure Echo 01/2024 demonstrated stable systolic dysfunction with EF of 25-30% but worsening diastolic function with grade 3-4 dysfunction with elevated left atrial pressures, mild right ventricular enlargement with hypokinesis of the right ventricle, mild aortic stenosis with mild aortic regurgitation, mild pulmonary hypertension with RVSP of 41 with [id number] pericardial effusion among other abnormalities Neuropathy Psychiatric disorder Surgical History Surgical History (Updated 11/29/24 @ 14:19 by Beba Starks, CAMERON) S/P AKA (above knee amputation) bilateral History of thyroidectomy History of ventral hernia repair With chronic calcified seroma History of above-knee amputation of both lower extremities History of right breast implant Patient reports that it was radiation implant History of lumpectomy of left breast Family History Family History Mother Family history of type 2 diabetes mellitus, Onset Age: 55 Father Acute myocardial infarction, Onset Age: 58 Social History Social History Social History: Surrogate medical decision maker: Ailyn Turner, daughter. Code status: Do not resuscitate with selective treatment (paperwork accompanies the patient). Smoking status: Never smoker Second hand tobacco smoke exposure: No Alcohol intake: unknown Substance use: unknown Substance use type: does not use Do You Feel Safe in your Home?: Yes Lack of Transportation: No Lack of Food: Never True Current Housing: I Do Not Have Housing Concerned About Future Housing: No Difficulty Paying Gas/Electric Bills: No Difficulty Paying for Meds: No Currently Unemployed: No Education: High School Diploma/GED Difficulty w/ Childcare or Family Care: No Spiritual care concerns: No Meds Home Medications and Allergies Home Medications ?Medication ?Instructions ?Recorded ?Confirmed ?Type atorvastatin 40 mg tablet 40 mg PO HS 12/05/21 11/29/24 History levothyroxine 100 mcg tablet 100 mcg PO DAILY 12/05/21 11/29/24 History potassium chloride 10 mEq 20 meq PO DAILY 05/16/22 11/29/24 History capsule,extended release Held on 12/05/24. Instructions: HOLD - resume when okay with provider magnesium citrate (Citroma oral 296 ml PO DAILY PRN Constipation 02/15/24 11/29/24 History solution) magnesium hydroxide 400 mg/5 mL 400 mg PO HS PRN Constipation 02/15/24 11/29/24 History oral suspension (Milk of Magnesia) ferrous sulfate 325 mg (65 mg 325 mg PO BID #90 tabs 02/29/24 11/29/24 Rx iron) tablet,delayed release acetaminophen 325 mg capsule 650 mg PO Q4H PRN pain or fever 05/04/24 11/29/24 History calcium 600 mg (as 1 cap PO DAILY 05/04/24 11/29/24 History carbonate)-vitamin D3 5 mcg (200 unit) capsule (Calcium 600 + D(3)) cyanocobalamin (vitamin B-12) 1,000 mcg PO DAILY 05/04/24 11/29/24 History 1,000 mcg capsule multivitamin,tx-minerals 1 cap PO DAILY 05/04/24 11/29/24 History (Multi-Vitamin HP/Minerals capsule) bisacodyl 10 mg rectal suppository 10 mg RECTAL DAILY PRN constipation 07/06/24 11/29/24 History insulin aspart U-100 100 unit/mL See Rx Instructions .Route .COMPLEX 07/06/24 11/29/24 History subcutaneous solution (Novolog U-100 Insulin aspart) carvedilol 12.5 mg tablet (Coreg) 12.5 mg PO Q12HR #60 tabs 07/18/24 11/29/24 Rx furosemide 40 mg tablet 40 mg PO DAILY #30 tabs 07/18/24 11/29/24 Rx hydralazine 10 mg tablet 10 mg PO TID #90 tabs 07/18/24 11/29/24 Rx isosorbide dinitrate 10 mg tablet 10 mg PO TID #90 tabs 07/18/24 11/29/24 Rx cetirizine 10 mg tablet 10 mg PO DAILY 10/05/24 11/29/24 History pantoprazole 40 mg tablet,delayed 40 mg PO DAILY 10/05/24 11/29/24 History release (Protonix) gabapentin 300 mg capsule 100 mg (0.3333 x 300 mg) PO TID 10/14/24 11/29/24 Rx Held on 12/05/24. #10 caps Instructions: HOLD - resume when okay with provider tramadol 50 mg tablet 50 mg PO Q6-8H PRN pain 11/29/24 11/29/24 History Held on 12/05/24. Instructions: HOLD - resume when okay with provider furosemide 20 mg tablet (Lasix) 20 mg PO MOWEFR #30 tabs 12/05/24 Rx cefuroxime axetil 500 mg tablet 500 mg PO Q12H #14 tabs 12/15/24 Rx Allergies Allergy/AdvReac Type Severity Reaction Status Date / Time codeine Allergy Unknown Verified 12/15/24 09:57 Vital Signs Vital Signs - 24 hr 01/01/25 19:32 01/01/25 19:37 01/01/25 20:48 Pulse Rate 59 L 59 L Respiratory Rate 16 15 Blood Pressure 109/87 Pulse Oximetry 87 L 90 100 Oxygen Delivery Room Air Nasal Cannula Oxygen Flow Rate 2 01/01/25 21:54 01/01/25 22:20 01/01/25 22:51 Pulse Rate 61 64 Respiratory Rate 20 Blood Pressure 92/71 L Pulse Oximetry 95 98 Oxygen Delivery Nasal Cannula Oxygen Flow Rate 1 01/01/25 23:00 01/01/25 23:15 01/01/25 23:16 Pulse Rate 59 L 57 L 58 L Respiratory Rate 15 14 14 Blood Pressure 111/54 L Pulse Oximetry 89 L 100 100 Oxygen Delivery Oxygen Flow Rate 01/01/25 23:22 Pulse Rate 58 L Respiratory Rate 9 L Blood Pressure 102/53 L Pulse Oximetry 100 Oxygen Delivery Oxygen Flow Rate Exam Const: General: comfortable and no acute distress Other: A&O x3, drowsy however easily arousable. HENMT: Mouth: Yes moist mucous membranes Eyes: Pupils: Equal, round and reactive pupils present Neck: Neck: supple Resp: Effort & Inspection: normal respiratory effort Other: Poor participation Cardio: Rate: regular rate Rhythm: regular rhythm GI: GI Palp: Yes Soft to palpation and No Tenderness to palpation present (GI) Auscultation: normal bowel sounds Other: Fluctuant and nontender mass periumbilical size of a softball : General: Yes bladder normal to palpation H&P: Results Labs Labs: Short CBC 01/01/25 Range/Units 19:51 WBC 5.1 (4.5-10.0) K/mm3 Hgb 9.8 L (12.0-15.0) g/dL Hct 31.5 L (37.0-47.0) % Plt Count 131 L (150-375) k/mm3 BMP 01/01/25 20:23 Sodium 137 Potassium 3.4 Chloride 98 Carbon Dioxide 29 BUN 51 H Creatinine 1.18 H Glucose 121 H Calcium 8.0 L Liver Function 01/01/25 Range/Units 20:23 Total Bilirubin 0.9 (0.2-1.3) mg/dL AST 28 (14-36) U/L ALT 12 (6-35) U/L Alkaline Phosphatase 49 (38-126) U/L Albumin 3.6 (3.5-5.1) g/dL Urine 01/01/25 Range/Units 19:51 Urine Color Yellow (Yellow) Urine Appearance Cloudy H (Clear) Urine pH 5.0 (5.0-9.0) Ur Specific [place] 1.008 (1.001-1.035) Urine Protein 1+ H (Negative) mg/dL Urine Glucose (UA) Negative (Negative) mg/dL Assessment and Plan Assessment and plan (1) Acute exacerbation of CHF (congestive heart failure): Code(s): I50.9 - Heart failure, unspecified Status: Acute (2) Acute UTI: Code(s): N39.0 - Urinary tract infection, site not specified Status: Acute Plan 69-year-old female presents to [facility] ER on 01/01/2025 from local nursing facility with lethargy. She is more sleepy than usual however she is easily arousable and A&O x3. 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 In the ER SpO2 low, requiring 1-2 L of nasal cannula to maintain adequate oxygenation. Confirmed with ABG with PO2 80 on 1.5 L nasal cannula. WBC 51, hemoglobin 9.8, INR 1.6, BUN 51, serum creatinine 1.18, glucose 121, urinalysis grossly abnormal considering indwelling Kaplan catheter, 3+ leukocyte esterase, 1+ blood, greater than 100 wbc's, few squamous cells, 3+ bacteria, 3-5 urine casts, no yeast noted. No BNP drawn. Subsequently a CTA chest PE protocol negative for PE, there is small right pleural effusion, trace left pleural effusion, ground-glass opacities suggestive of pulmonary edema, moderate pericardial effusion. Echocardiogram from 11/29/2024 demonstrating small posterior pericardial effusion. She is otherwise hemodynamically stable. It appears she was initially given 1 L normal saline bolus, later given 40 mg IV x1, ceftriaxone 1 g IV x1. It appears naloxone was ordered reported not given as she at improved before administration. Patient denies any symptoms. ----- Will perform CT head to assess for intracranial abnormalities. Lethargy otherwise likely due to catheter associated UTI versus hypoxia due to fluid overload/decompensated heart failure. No hypercapnia on ABG. Monitor on telemetry. Hold PHYSICIAN OPHTHALMOLOGIST tramadol CHF: Daily weights, intake/output. Lasix 40 mg IV q.day. Acute hypoxic respiratory failure: Patient breathing comfortably on 1 L nasal cannula. Wean as tolerated. Likely catheter associated UTI with metabolic encephalopathy: Continue ceftriaxone. Insulin-dependent diabetes mellitus: Will not restart PHYSICIAN OPHTHALMOLOGIST insulin due to the patient's presentation. Accu-Cheks a.c. HS with low-dose insulin sliding scale and hypoglycemia protocol. Hypertension: At this time monitor blood pressure and hold all PHYSICIAN OPHTHALMOLOGIST antihypertensives Repeat surface echocardiogram to help further delineate pericardial effusion. Noted to be small on 11/29/2024, noted to be moderate on CTA chest on 01/01/2025 albeit not the best study. CKD: Near her baseline. Daily renal function trend. ----- DNR. Kaplan catheter change on 01/01/2025 Hospitalist [facility] Advance Care Plan I have confirmed that the patient's Advanced Care Plan is present, code status is documented, or surrogate decision maker is listed in patient medical record.: Yes Medication Reconciliation I have utilized all available resources to obtain, update and review the patients current medications (includes all prescriptions, OTC, herbals, cannabis, and nutritional supplements).: Yes
--- NOTE | 2025-01-02 02:07 | ADMGEN ---
This patient, Iris Pascual, was admitted to [facility] Surg Room 332-02. Patient/family oriented to hospital policies and general routines including ID bracelet, bed and alarms, visiting hours, pain management, procedures, bathroom and other care routines, personal items, smoking policy, room service/diet, and visiting hours. Information on how to activate the Rapid Response Team has been discussed. Patient/Family are encouraged to report perceived risks to care and to ask questions if they do not understand what they are told or what they should do.
[2025-01-02 05:58] LABS: Hematocrit 32.2 % (37.0-47.0); Hemoglobin 9.8 g/dL (12.0-15.0); Immature Granulocyte Percent A 0.4 % (0-0.5); Lymphocytes Absolute Auto 0.68 K/mm3 (0.9-3.2); Mean Corpuscular HGB Conc 30.4 g/dl (32-36); Mean Corpuscular Hemoglobin 31.4 pg (26-34); Mean Corpuscular Volume 103.2 fl (80-100); Nucleated Red Blood Cells Absolute Auto 0.000 K/mm3 (0.0-0.012); Nucleated Red Blood Cells Perc 0.0 % (0.0-0.2); Platelet Count Result 127 k/mm3 (150-375); Red Blood Count 3.12 M/mm3 (4.2-5.4); White Blood Count 5.3 K/mm3 (4.5-10.0)
[2025-01-02 06:09] LABS: Alanine Aminotransferase 10 U/L (6-35); Albumin Level 3.4 g/dL (3.5-5.1); Alkaline Phosphatase 43 U/L (38-126); Anion Gap 10 mmol/L (4-12); Aspartate Amino Transferase 27 U/L (14-36); Bilirubin,Total 0.7 mg/dL (0.2-1.3); Blood Urea Nitrogen 48 mg/dL (7-17); Calcium 7.9 mg/dL (8.4-10.2); Carbon Dioxide 27 mmol/L (22-30); Chloride 100 mmol/L (98-107); Estimated CRCL calculation 44 ml/min; Estimated Glomerular Filt Rate 48; Glucose 99 mg/dL (65-110); Magnesium 1.8 mg/dL (1.6-2.3); Potassium 3.2 mmol/L (3.4-5.0); Sodium 137 mmol/L (137-145); Total Protein 7.0 g/dL (6.3-8.2)
[2025-01-02] MEDS: FUROSEMIDE INJ 40 MG/4 ML VIAL IV PUSH ×2 (07:56→16:42)
[2025-01-02] MEDS: PERFLUTREN LIPID MICROSPHERES 1.5 ML VIAL DILUTED TO 10 ML TOTAL VOLUME IV PUSH (12:36)
--- NOTE | 2025-01-02 12:37 | IVDEFINITY ---
Prior to administration of IV Definity the patient was educated on the risks and benefits of the imaging enhancing agent including potential adverse side effects. The patient verbalized understanding. Allergies were verified. No exclusion criteria were identified and at least one of the following inclusion criteria were met: 1) physician request, 2) patient technically difficult to image (per the [place] [employer] guidelines of two or more segments not discernable within the apical view), or 3) questionable left ventricular function. ?
[2025-01-02] MEDS: POTASSIUM CHLORIDE 20 MEQ ER TABLET 40 MEQ PO (13:39)
--- NOTE | 2025-01-02 14:26 | PM.CNCAR ---
Assessment and Plan Assessment and plan (1) Combined systolic and diastolic congestive heart failure: Qualifiers: Heart failure chronicity: acute on chronic Qualified Code(s): I50.43 - Acute on chronic combined systolic (congestive) and diastolic (congestive) heart failure Code(s): I50.40 - Unspecified combined systolic (congestive) and diastolic (congestive) heart failure Status: Acute Assessment and Plan: She has severe left ventricular systolic dysfunction. Repeat echo demonstrates further decline in her EF to 10-15% (previously 20-25%) with biventricular systolic dysfunction and moderate tricuspid insufficiency. Because of her chronic kidney disease her medical regimen consists of the beta leah, hydralazine and isosorbide. Will hold coreg for the time being as she is in acute decompensated heart failure Continue with IV furosemide, increase to 40mg IV b.i.d. K+ 3.2 - Give 40 mEq KCL x 1 now Daily BMP Daily weights Strict I&O After she has diuresed we can try to optimize her GDMT - her renal function at this point is not prohibitive to using GERMANIA/ARNI/ARB or MRA Her heart failure is end stage and given her other comorbidities she is not a candidate for advanced therapies. Multiple readmissions for CHF exacerbations in the last year. ? Palliative consult. (2) CHF exacerbation: Code(s): I50.9 - Heart failure, unspecified Status: Acute Assessment and Plan: Acute on chronic combined systolic and diastolic heart failure. See above. (3) HTN (hypertension): Qualifiers: Hypertension type: unspecified Qualified Code(s): I10 - Essential (primary) hypertension Code(s): I10 - Essential (primary) hypertension Status: Chronic Assessment and Plan: Blood pressure at goal (4) Chronic pericardial effusion: Code(s): I31.39 - Other pericardial effusion (noninflammatory) Status: Acute Assessment and Plan: Moderate in size with no evidence of tamponade by echo History of Present Illness History of Present Illness Consult date/time: 01/02/25 14:26 Reason For Visit: CHF exacerbation, Hypoxia requiring oxygen Narrative: Iris Pascual is a 67-year-old female with a history of breast cancer s/p surgery/chemoradiation, bilateral AKA, type 2 diabetes, hypertension, GERD, and severe cardiomyopathy. She has declined invasive evaluation in the past. Her medical regimen in terms of guideline directed medical therapy for her cardiomyopathy has consisted of coreg, isosorbide, and hydralazine. Unable to use GERMANIA/ARB/ARNI because of her renal insufficiency. Patient does not know why she was brought to the hospital. She states that she was feeling well prior to this admission. At the time of my evaluation, she is denying any shortness of breath, chest pain, palpitations, or swelling. Review of Systems Review of Systems: ROS unobtainable: Yes unobtainable due to mental status PMFSH Past Medical History Medical History Dementia Chronic indwelling Kaplan catheter CKD (chronic kidney disease) stage 3, GFR 30-59 ml/min With baseline creatinine between 1.3 and 1.6 Iron deficiency anemia History of ESBL E. coli infection Recurrent Clostridioides difficile infection Anemia Pneumonia Stercoral colitis Urinary tract infection due to extended-spectrum beta lactamase (ESBL) producing Escherichia coli 01/2024 Type 2 diabetes mellitus Hypertension C. difficile diarrhea (01/2024) Gastroesophageal reflux disease History of breast cancer Thyroid cancer Hyperlipidemia Peripheral vascular disease Non-STEMI (non-ST elevated myocardial infarction) Combined systolic and diastolic congestive heart failure Echo 01/2024 demonstrated stable systolic dysfunction with EF of 25-30% but worsening diastolic function with grade 3-4 dysfunction with elevated left atrial pressures, mild right ventricular enlargement with hypokinesis of the right ventricle, mild aortic stenosis with mild aortic regurgitation, mild pulmonary hypertension with RVSP of 41 with [id number] pericardial effusion among other abnormalities Neuropathy Psychiatric disorder Surgical History Surgical History S/P AKA (above knee amputation) bilateral History of thyroidectomy History of ventral hernia repair With chronic calcified seroma History of above-knee amputation of both lower extremities History of right breast implant Patient reports that it was radiation implant History of lumpectomy of left breast Family History Family History Mother Family history of type 2 diabetes mellitus, Onset Age: 55 Father Acute myocardial infarction, Onset Age: 58 Social History Social History Social History: Surrogate medical decision maker: Ailyn Turner, daughter. Code status: Do not resuscitate with selective treatment (paperwork accompanies the patient). Smoking status: Never smoker Second hand tobacco smoke exposure: No Alcohol intake: unknown Substance use: unknown Substance use type: does not use Do You Feel Safe in your Home?: Yes Lack of Transportation: No Lack of Food: Never True Current Housing: I Do Not Have Housing Concerned About Future Housing: No Difficulty Paying Gas/Electric Bills: No Difficulty Paying for Meds: No Currently Unemployed: No Education: High School Diploma/GED Difficulty w/ Childcare or Family Care: No Spiritual care concerns: No Meds Home Medications and Allergies Home Medications ?Medication ?Instructions ?Recorded ?Confirmed ?Type atorvastatin 40 mg tablet 40 mg PO HS 12/05/21 01/02/25 History levothyroxine 100 mcg tablet 100 mcg PO DAILY 12/05/21 01/02/25 History potassium chloride 10 mEq 20 meq PO DAILY 05/16/22 01/02/25 History capsule,extended release magnesium citrate (Citroma oral 296 ml PO DAILY PRN Constipation 02/15/24 01/02/25 History solution) magnesium hydroxide 400 mg/5 mL 2,400 mg PO HS PRN Constipation 02/15/24 01/02/25 History oral suspension (Milk of Magnesia) ferrous sulfate 325 mg (65 mg 325 mg PO BID #90 tabs 02/29/24 01/02/25 Rx iron) tablet,delayed release acetaminophen 325 mg capsule 650 mg PO Q4H PRN pain or fever 05/04/24 01/02/25 History calcium 600 mg (as 1 cap PO DAILY 05/04/24 01/02/25 History carbonate)-vitamin D3 5 mcg (200 unit) capsule (Calcium 600 + D(3)) cyanocobalamin (vitamin B-12) 1,000 mcg PO DAILY 05/04/24 01/02/25 History 1,000 mcg capsule multivitamin,tx-minerals 1 cap PO DAILY 05/04/24 01/02/25 History (Multi-Vitamin HP/Minerals capsule) bisacodyl 10 mg rectal suppository 10 mg RECTAL DAILY PRN constipation 07/06/24 01/02/25 History insulin aspart U-100 100 unit/mL See Rx Instructions .Route .COMPLEX 07/06/24 01/02/25 History subcutaneous solution (Novolog U-100 Insulin aspart) carvedilol 12.5 mg tablet (Coreg) 12.5 mg PO Q12HR #60 tabs 07/18/24 01/02/25 Rx furosemide 40 mg tablet 40 mg PO DAILY #30 tabs 07/18/24 01/02/25 Rx hydralazine 10 mg tablet 10 mg PO TID #90 tabs 07/18/24 01/02/25 Rx isosorbide dinitrate 10 mg tablet 10 mg PO TID #90 tabs 07/18/24 01/02/25 Rx cetirizine 10 mg tablet 10 mg PO DAILY 10/05/24 01/02/25 History pantoprazole 40 mg tablet,delayed 40 mg PO DAILY 10/05/24 01/02/25 History release (Protonix) gabapentin 300 mg capsule 100 mg (0.3333 x 300 mg) PO TID 10/14/24 01/02/25 Rx #10 caps tramadol 50 mg tablet 50 mg PO Q8H PRN pain 11/29/24 01/02/25 History furosemide 20 mg tablet (Lasix) 20 mg PO MOWEFR #30 tabs 12/05/24 01/02/25 Rx cefuroxime axetil 500 mg tablet 500 mg PO Q12H #14 tabs 12/15/24 01/02/25 Rx naloxone 4 mg/actuation nasal 4 mg intranasal Q2M 01/02/25 01/02/25 History spray (Narcan) ondansetron 4 mg disintegrating 4 mg PO Q8H PRN nausea and vomiting 01/02/25 01/02/25 History tablet sodium bicarbonate 650 mg tablet 650 mg PO BID 01/02/25 01/02/25 History sodium phosphates 19 gram-7 118 ml RECTAL DAILY PRN 01/02/25 01/02/25 History gram/118 mL enema (Enema) constipation Allergies Allergy/AdvReac Type Severity Reaction Status Date / Time codeine Allergy Unknown Verified 01/02/25 02:08 Vital Signs Vital Signs - 24 hr 01/01/25 19:32 01/01/25 19:37 01/01/25 20:48 Temperature Pulse Rate 59 L 59 L Respiratory Rate 16 15 Blood Pressure 109/87 Pulse Oximetry 87 L 90 100 Oxygen Delivery Room Air Nasal Cannula Oxygen Flow Rate 2 01/01/25 21:54 01/01/25 22:20 01/01/25 22:51 Temperature Pulse Rate 61 64 Respiratory Rate 20 Blood Pressure 92/71 L Pulse Oximetry 95 98 Oxygen Delivery Nasal Cannula Oxygen Flow Rate 1 01/01/25 23:00 01/01/25 23:15 01/01/25 23:16 Temperature Pulse Rate 59 L 57 L 58 L Respiratory Rate 15 14 14 Blood Pressure 111/54 L Pulse Oximetry 89 L 100 100 Oxygen Delivery Oxygen Flow Rate 01/01/25 23:22 01/01/25 23:23 01/01/25 23:30 Temperature Pulse Rate 58 L 57 L 56 L Respiratory Rate 9 L 14 14 Blood Pressure 102/53 L Pulse Oximetry 100 100 100 Oxygen Delivery Oxygen Flow Rate 01/01/25 23:31 01/01/25 23:41 01/01/25 23:45 Temperature Pulse Rate 56 L 60 55 L Respiratory Rate 13 14 13 Blood Pressure 111/60 111/66 Pulse Oximetry 100 Oxygen Delivery Oxygen Flow Rate 01/01/25 23:51 01/01/25 23:57 01/02/25 00:00 Temperature Pulse Rate 58 L 56 L 55 L Respiratory Rate 13 14 12 Blood Pressure 109/55 L 109/55 L Pulse Oximetry Oxygen Delivery Oxygen Flow Rate 01/02/25 00:01 01/02/25 00:11 01/02/25 00:15 Temperature Pulse Rate 56 L 56 L 54 L Respiratory Rate 13 14 14 Blood Pressure 100/58 L 116/62 Pulse Oximetry Oxygen Delivery Oxygen Flow Rate 01/02/25 02:07 01/02/25 02:30 01/02/25 04:00 Temperature 36.4 C Pulse Rate 60 60 51 L Respiratory Rate 18 18 Blood Pressure 155/65 H Pulse Oximetry 98 94 Oxygen Delivery Room Air Oxygen Flow Rate 01/02/25 06:00 01/02/25 08:00 01/02/25 08:00 Temperature 36.3 C L Pulse Rate 52 L 73 Respiratory Rate 16 Blood Pressure 124/42 L Pulse Oximetry 94 94 Oxygen Delivery Room Air Oxygen Flow Rate 01/02/25 12:00 Temperature Pulse Rate 67 Respiratory Rate Blood Pressure Pulse Oximetry Oxygen Delivery Oxygen Flow Rate Exam Const: General: comfortable, no acute distress, alert and awake HENMT: Head: normal to inspection Eyes: General: appearance normal, both eyes and all related structures Pupils: Equal, round and reactive pupils present Neck: Neck: normal visual inspection and supple Carotids: normal carotid upstroke Resp: Effort & Inspection: normal respiratory effort Auscultation: rales Cardio: Rate: regular rate Rhythm: regular rhythm Heart sounds: S1 normal heart sound present, S2 normal heart sound present and no murmurs GI: Auscultation: normal bowel sounds Urinary Catheter: Urinary Catheter: patent and draining Skin: General skin exam: normal color Neuro: General: patient oriented x3 Cranial nerves: Yes Equal, round and reactive pupils present Extrem: Other: Bilateral AKA Psych: Appearance: grossly normal Mental Status: mental status grossly abnormal Results Labs and Meds 01/02/25 05:14 01/02/25 05:14 Lab results: Cardiac Enzymes 01/01/25 01/02/25 Range/Units 20:23 05:14 AST 28 27 (14-36) U/L Coagulation 01/01/25 Range/Units 20:23 PT 19.4 H (11.1-14.7) Seconds APTT 32.7 (22.3-36.8) Seconds CBC 01/01/25 01/02/25 Range/Units 19:51 05:14 WBC 5.1 5.3 (4.5-10.0) K/mm3 RBC 3.09 L 3.12 L (4.2-5.4) M/mm3 Hgb 9.8 L 9.8 L (12.0-15.0) g/dL Hct 31.5 L 32.2 L (37.0-47.0) % Plt Count 131 L 127 L (150-375) k/mm3 Lymph # (Auto) 0.83 L 0.68 L (0.9-3.2) K/mm3 [place] # (Auto) 0.3 0.4 (0.1-0.6) K/mm3 Eos # (Auto) 0.3 0.3 (0-0.3) K/mm3 Baso # (Auto) 0.0 0.1 (0.0-0.1) K/mm3 Comprehensive Metabolic Panel 01/01/25 01/02/25 Range/Units 20:23 05:14 Sodium 137 137 (137-145) mmol/L Potassium 3.4 3.2 L (3.4-5.0) mmol/L Chloride 98 100 (98-107) mmol/L Carbon Dioxide 29 27 (22-30) mmol/L BUN 51 H 48 H (7-17) mg/dL Creatinine 1.18 H 1.13 H (0.7-1.0) mg/dL Glucose 121 H 99 (65-110) mg/dL Calcium 8.0 L 7.9 L (8.4-10.2) mg/dL AST 28 27 (14-36) U/L ALT 12 10 (6-35) U/L Alkaline Phosphatase 49 43 (38-126) U/L Total Protein 7.5 7.0 (6.3-8.2) g/dL Albumin 3.6 3.4 L (3.5-5.1) g/dL Intake and Output 01/01/25 01/02/25 01/02/25 23:59 07:59 15:59 Intake Total 566.2 200 360 Output Total 1225 Balance 566.2 -1025 360 Intake: IV 566.2 Sodium Chloride 0.9% IV 1,000 516.2 ml @ 999 mls/hr IV CONT .Q1H1M STA Rx#:[id number] cefTRIAXone 1 gm In Sodium 50 Chloride 0.9% IV 50 ml @ 100 mls/hr IVPB ONCE STA Rx#: [id number] Oral 200 360 Output: Catheter Urine 1225 Urethral Catheter 1225 Patient Weight 01/02/25 23:59 Weight 74.5 kg
[2025-01-02] MEDS: FERROUS SULFATE 325 MG TABLET PO (16:42)
[2025-01-02] MEDS: SODIUM BICARBONATE TAB 650 MG TABLET PO (16:42)
--- NOTE | 2025-01-02 17:06 | PM.IMPN ---
Progress Note: A&P Assessment and Plan (1) Acute exacerbation of CHF (congestive heart failure): Code(s): I50.9 - Heart failure, unspecified Status: Acute Assessment and Plan: Echocardiogram shows ejection fraction 10-15% Daily weights Strict I and O Unable to initiate GDM D due to poor renal function and other comorbid conditions Goals of care discussed with her daughter in telephone Tomorrow again will discuss goals of care with her daughter in person Order left arm ultrasound shows no signs of DVT Head CT shows no significant finding (2) Acute UTI: Code(s): N39.0 - Urinary tract infection, site not specified Status: Acute Assessment and Plan: Continue ceftriaxone Subjective Date/time seen: 01/02/25 17:06 Interval history: 69-year-old female presents to [facility] ER on 01/01/2025 from local nursing facility with lethargy. She is more sleepy than usual however she is easily arousable and A&O x3. 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 01/02:Called POA and spoke the goals of care. I will be talking goals of care again tomorrow in person with her daughter. Patient has end-stage CHF. Patient is AO x3 Review of Systems Review of Systems: All systems reviewed & are unremarkable except as noted in HPI and below (Subjective) Exam Const: General: comfortable and no acute distress Other: A&O x3, drowsy however easily arousable. HENMT: Mouth: Yes moist mucous membranes Eyes: Pupils: Equal, round and reactive pupils present Neck: Neck: supple Resp: Effort & Inspection: normal respiratory effort Other: Poor participation Cardio: Rate: regular rate Rhythm: regular rhythm GI: Auscultation: normal bowel sounds Other: Fluctuant and nontender mass periumbilical size of a softball : General: Yes bladder normal to palpation Bimanual exam- vagina & uterus: bladder normal to palpation Neuro: Cranial nerves: Yes Equal, round and reactive pupils present Objective Data Vital Signs Vital Signs: Vital Signs - 24 hr 01/01/25 19:32 01/01/25 19:37 01/01/25 20:48 Temperature Pulse Rate 59 L 59 L Respiratory Rate 16 15 Blood Pressure 109/87 Pulse Oximetry 87 L 90 100 Oxygen Delivery Room Air Nasal Cannula Oxygen Flow Rate 2 01/01/25 21:54 01/01/25 22:20 01/01/25 22:51 Temperature Pulse Rate 61 64 Respiratory Rate 20 Blood Pressure 92/71 L Pulse Oximetry 95 98 Oxygen Delivery Nasal Cannula Oxygen Flow Rate 1 01/01/25 23:00 01/01/25 23:15 01/01/25 23:16 Temperature Pulse Rate 59 L 57 L 58 L Respiratory Rate 15 14 14 Blood Pressure 111/54 L Pulse Oximetry 89 L 100 100 Oxygen Delivery Oxygen Flow Rate 01/01/25 23:22 01/01/25 23:23 01/01/25 23:30 Temperature Pulse Rate 58 L 57 L 56 L Respiratory Rate 9 L 14 14 Blood Pressure 102/53 L Pulse Oximetry 100 100 100 Oxygen Delivery Oxygen Flow Rate 01/01/25 23:31 01/01/25 23:41 01/01/25 23:45 Temperature Pulse Rate 56 L 60 55 L Respiratory Rate 13 14 13 Blood Pressure 111/60 111/66 Pulse Oximetry 100 Oxygen Delivery Oxygen Flow Rate 01/01/25 23:51 01/01/25 23:57 01/02/25 00:00 Temperature Pulse Rate 58 L 56 L 55 L Respiratory Rate 13 14 12 Blood Pressure 109/55 L 109/55 L Pulse Oximetry Oxygen Delivery Oxygen Flow Rate 01/02/25 00:01 01/02/25 00:11 01/02/25 00:15 Temperature Pulse Rate 56 L 56 L 54 L Respiratory Rate 13 14 14 Blood Pressure 100/58 L 116/62 Pulse Oximetry Oxygen Delivery Oxygen Flow Rate 01/02/25 02:07 01/02/25 02:30 01/02/25 04:00 Temperature 97.6 F Pulse Rate 60 60 51 L Respiratory Rate 18 18 Blood Pressure 155/65 H Pulse Oximetry 98 94 Oxygen Delivery Room Air Oxygen Flow Rate 01/02/25 06:00 01/02/25 08:00 01/02/25 08:00 Temperature 97.3 F L Pulse Rate 52 L 73 Respiratory Rate 16 Blood Pressure 124/42 L Pulse Oximetry 94 94 Oxygen Delivery Room Air Oxygen Flow Rate 01/02/25 12:00 01/02/25 16:00 Temperature Pulse Rate 67 73 Respiratory Rate Blood Pressure Pulse Oximetry Oxygen Delivery Oxygen Flow Rate Intake/Output Intake/Output: Intake & Output 12/30/24 12/31/24 01/01/25 01/02/25 23:59 23:59 23:59 23:59 Intake Total 566.2 680 Output Total 1225 Balance 566.2 -545 Meds/Results Medications: Active Medications Generic Name Dose Route Start Last Admin Trade Name Freq PRN Reason Stop Dose Admin Atorvastatin Calcium 40 mg 01/02/25 21:00 Atorvastatin 40 Mg Tablet PO HS KASIE Carvedilol 12.5 mg 01/02/25 21:00 Carvedilol 12.5 Mg Tablet PO Q12HR KASIE Dextrose 12.5 gm 01/02/25 00:28 Dextrose 50% 25 Gm/50 Ml Syringe IV PUSH PRN PRN Hypoglycemia Protocol Ferrous Sulfate 325 mg 01/02/25 17:00 01/02/25 16:42 Ferrous Sulfate 325 Mg Tablet PO 325 mg BID KASIE Administration Furosemide 40 mg 01/02/25 17:00 01/02/25 16:42 Furosemide Inj 40 Mg/4 Ml Vial IV PUSH 40 mg BID KASIE Administration Glucose 15 gm 01/02/25 00:28 Glucose Oral Gel 15 Gm Of Glucse In 37.5 Gm Tube PO PRN PRN Hypoglycemia Protocol Ceftriaxone Sodium 1 gm/ 50 mls @ 100 mls/hr 01/02/25 21:00 Sodium Chloride IVPB Q24H KASIE Dextrose 1,000 mls @ 100 mls/hr 01/02/25 00:28 Dextrose 5% 1,000 Ml IVPB PRN PRN Hypoglycemia Protocol Insulin Aspart 2 - 5 units 01/02/25 08:00 01/02/25 11:59 Insulin Aspart (*Bkc) 100 Units/Ml SUB-Q Not Given TIDWM [facility] Protocol Insulin Aspart 1 - 2 units 01/02/25 21:00 Insulin Aspart (*Bkc) 100 Units/Ml SUB-Q HS [facility] Protocol Levothyroxine Sodium 100 mcg 01/03/25 06:30 Levothyroxine Sodium 100 Mcg Tablet PO DAILY@0630 [facility] Pantoprazole Sodium 40 mg 01/03/25 09:00 Pantoprazole 40 Mg Tablet PO DAILY [facility] Potassium Chloride 20 meq 01/03/25 09:00 Potassium Chloride 20 Meq Er Tablet PO DAILY [facility] Sodium Bicarbonate 650 mg 01/02/25 17:00 01/02/25 16:42 Sodium Bicarbonate Tab 650 Mg Tablet PO 650 mg BID KASIE Administration Radiology Results: ITS Impressions Chest X-Ray 01/01/25 22:08 IMPRESSION: No acute pulmonary findings. Chest CTA 01/01/25 22:55 IMPRESSION: There is no pulmonary embolism, aortic dissection, or thoracic aneurysm. Cardiomegaly and pericardial effusion is noted. There is bilateral pleural effusions with groundglass opacity suggestive of pulmonary edema. All CT scans at this facility are performed using low dose modulation techniques as appropriate to perform exam including the following: automated exposure control; use of iterative reconstruction technique; adjustment of the mA and/or kV according to patient size (this includes techniques or standardized protocols for targeted exams where dose is matched to indication/reason for exam). Head CT 01/02/25 14:12 Impression: 1.No acute intracranial abnormality. Venous Doppler Study 01/02/25 14:51 IMPRESSION: 1. Patent left upper extremity veins. No evidence of deep venous thrombosis. Labs Labs: Laboratory Results - last 24 hr 01/01/25 01/01/25 01/01/25 19:51 20:23 22:19 WBC 5.1 RBC 3.09 L Hgb 9.8 L Hct 31.5 L MCV 101.9 H MCH 31.7 MCHC 31.1 L RDW 18.2 H Plt Count 131 L MPV 11.0 H Immature Gran % (Auto) 0.4 Neut % (Auto) 71.2 Lymph % (Auto) 16.4 L [place] % (Auto) 5.9 Eos % (Auto) 5.3 H Baso % (Auto) 0.8 Lymph # (Auto) 0.83 L [place] # (Auto) 0.3 Eos # (Auto) 0.3 Baso # (Auto) 0.0 Abs Immat Gran (auto) 0.02 Absolute Neuts (auto) 3.6 Absolute Nucleated RBC 0.000 Nucleated RBC % 0.0 PT 19.4 H INR 1.6 APTT 32.7 Puncture Site Right radial ABG pH 7.386 ABG pCO2 47.0 H ABG pO2 79.9 L ABG PO2/FiO2 Ratio 3.07 ABG HCO3 27.6 H ABG O2 Saturation 95.6 ABG O2 Content 14.3 L ABG Base Excess 2.1 A-a Gradient 49.8 Oxyhemoglobin 93.8 Carboxyhemoglobin 0.8 Methemoglobin 0.0 Reduced Hemoglobin 5.4 H Total Hemoglobin 10.8 L O2 Delivery Device Nasal cannula O2 Liters/Min 1.5 FiO2 26 Sodium 137 Potassium 3.4 Chloride 98 Carbon Dioxide 29 Anion Gap 10 BUN 51 H Creatinine 1.18 H Estim Creat Clear Calc 42 Estimated GFR 45 L Glucose 121 H POC Capillary Glucose Calcium 8.0 L Magnesium Total Bilirubin 0.9 AST 28 ALT 12 Alkaline Phosphatase 49 Total Protein 7.5 Albumin 3.6 Urine Color Yellow Urine Appearance Cloudy H Urine pH 5.0 Ur Specific [place] 1.008 Urine Protein 1+ H Urine Glucose (UA) Negative Urine Ketones Negative Ur Blood (Man) 1+ H Urine Nitrate Negative Urine Bilirubin Negative Urine Urobilinogen 0.2 Add Ur Microanalysis Reviewed Leukocyte Esterase Rfl 3+ H Urine RBC 21-50 H Urine WBC >100 H Ur Squamous Epith Cells Few Urine Bacteria 3+ H Urine Casts 3-5 01/02/25 01/02/25 01/02/25 05:14 07:47 11:52 WBC 5.3 RBC 3.12 L Hgb 9.8 L Hct 32.2 L MCV 103.2 H MCH 31.4 MCHC 30.4 L RDW 18.2 H Plt Count 127 L MPV 11.0 H Immature Gran % (Auto) 0.4 Neut % (Auto) 72.9 Lymph % (Auto) 13.0 L [place] % (Auto) 6.9 Eos % (Auto) 5.7 H Baso % (Auto) 1.1 Lymph # (Auto) 0.68 L [place] # (Auto) 0.4 Eos # (Auto) 0.3 Baso # (Auto) 0.1 Abs Immat Gran (auto) 0.02 Absolute Neuts (auto) 3.8 Absolute Nucleated RBC 0.000 Nucleated RBC % 0.0 PT INR APTT Puncture Site ABG pH ABG pCO2 ABG pO2 ABG PO2/FiO2 Ratio ABG HCO3 ABG O2 Saturation ABG O2 Content ABG Base Excess A-a Gradient Oxyhemoglobin Carboxyhemoglobin Methemoglobin Reduced Hemoglobin Total Hemoglobin O2 Delivery Device O2 Liters/Min FiO2 Sodium 137 Potassium 3.2 L Chloride 100 Carbon Dioxide 27 Anion Gap 10 BUN 48 H Creatinine 1.13 H Estim Creat Clear Calc 44 Estimated GFR 48 L Glucose 99 POC Capillary Glucose 111 H 193 H Calcium 7.9 L Magnesium 1.8 Total Bilirubin 0.7 AST 27 ALT 10 Alkaline Phosphatase 43 Total Protein 7.0 Albumin 3.4 L Urine Color Urine Appearance Urine pH Ur Specific [place] Urine Protein Urine Glucose (UA) Urine Ketones Ur Blood (Man) Urine Nitrate Urine Bilirubin Urine Urobilinogen Add Ur Microanalysis Leukocyte Esterase Rfl Urine RBC Urine WBC Ur Squamous Epith Cells Urine Bacteria Urine Casts 01/02/25 16:50 WBC RBC Hgb Hct MCV MCH MCHC RDW Plt Count MPV Immature Gran % (Auto) Neut % (Auto) Lymph % (Auto) [place] % (Auto) Eos % (Auto) Baso % (Auto) Lymph # (Auto) [place] # (Auto) Eos # (Auto) Baso # (Auto) Abs Immat Gran (auto) Absolute Neuts (auto) Absolute Nucleated RBC Nucleated RBC % PT INR APTT Puncture Site ABG pH ABG pCO2 ABG pO2 ABG PO2/FiO2 Ratio ABG HCO3 ABG O2 Saturation ABG O2 Content ABG Base Excess A-a Gradient Oxyhemoglobin Carboxyhemoglobin Methemoglobin Reduced Hemoglobin Total Hemoglobin O2 Delivery Device O2 Liters/Min FiO2 Sodium Potassium Chloride Carbon Dioxide Anion Gap BUN Creatinine Estim Creat Clear Calc Estimated GFR Glucose POC Capillary Glucose 267 H Calcium Magnesium Total Bilirubin AST ALT Alkaline Phosphatase Total Protein Albumin Urine Color Urine Appearance Urine pH Ur Specific [place] Urine Protein Urine Glucose (UA) Urine Ketones Ur Blood (Man) Urine Nitrate Urine Bilirubin Urine Urobilinogen Add Ur Microanalysis Leukocyte Esterase Rfl Urine RBC Urine WBC Ur Squamous Epith Cells Urine Bacteria Urine Casts Hospitalist MIPS Advance Care Plan I have confirmed that the patient's Advanced Care Plan is present, code status is documented, or surrogate decision maker is listed in patient medical record.: Yes Medication Reconciliation I have utilized all available resources to obtain, update and review the patients current medications (includes all prescriptions, OTC, herbals, cannabis, and nutritional supplements).: Yes
[2025-01-02] MEDS: INSULIN ASPART (*BKC) 100 UNITS/ML SUB-Q ×2 (17:15→21:17)
[2025-01-02] MEDS: ATORVASTATIN 40 MG TABLET PO (21:16)
[2025-01-02] MEDS: ACETAMINOPHEN 500 MG TABLET 1000 MG PO (21:16)
[2025-01-02] MEDS: cefTRIAXone 1 GM in SODIUM CHLORIDE 0.9% IV 50 ML 100 ML IVPB (21:17)
[2025-01-03] VITALS (11 sets, daily range): BP systolic 100–124; BP diastolic 38–93; PULSE 68–79; RESP 14–20; TEMP 36.1–37.4; O2SAT 94–97
[2025-01-03] MEDS: LEVOTHYROXINE SODIUM 100 MCG TABLET PO (05:27)
[2025-01-03 06:07] LABS: Hematocrit 31.9 % (37.0-47.0); Hemoglobin 10.1 g/dL (12.0-15.0); Immature Granulocyte Percent A 0.4 % (0-0.5); Lymphocytes Absolute Auto 0.85 K/mm3 (0.9-3.2); Mean Corpuscular HGB Conc 31.7 g/dl (32-36); Mean Corpuscular Hemoglobin 32.3 pg (26-34); Mean Corpuscular Volume 101.9 fl (80-100); Nucleated Red Blood Cells Absolute Auto 0.000 K/mm3 (0.0-0.012); Nucleated Red Blood Cells Perc 0.0 % (0.0-0.2); Platelet Count Result 145 k/mm3 (150-375); Red Blood Count 3.13 M/mm3 (4.2-5.4); White Blood Count 5.3 K/mm3 (4.5-10.0)
[2025-01-03 06:25] LABS: Alanine Aminotransferase 13 U/L (6-35); Albumin Level 3.6 g/dL (3.5-5.1); Alkaline Phosphatase 53 U/L (38-126); Anion Gap 9 mmol/L (4-12); Aspartate Amino Transferase 29 U/L (14-36); Bilirubin,Total 0.6 mg/dL (0.2-1.3); Blood Urea Nitrogen 48 mg/dL (7-17); Calcium 8.0 mg/dL (8.4-10.2); Carbon Dioxide 30 mmol/L (22-30); Chloride 98 mmol/L (98-107); Estimated CRCL calculation 37 ml/min; Estimated Glomerular Filt Rate 38; Glucose 128 mg/dL (65-110); Potassium 3.5 mmol/L (3.4-5.0); Sodium 137 mmol/L (137-145); Total Protein 7.6 g/dL (6.3-8.2)
[2025-01-03 06:35] LABS: NT Pro B Type Natriuretic Pept > 30000 pg/mL (19.9-100)
[2025-01-03] MEDS: FUROSEMIDE INJ 40 MG/4 ML VIAL IV PUSH ×2 (08:13→17:09)
[2025-01-03] MEDS: PANTOPRAZOLE 40 MG TABLET PO (08:15)
[2025-01-03] MEDS: FERROUS SULFATE 325 MG TABLET PO ×2 (08:15→17:09)
[2025-01-03] MEDS: POTASSIUM CHLORIDE 20 MEQ ER TABLET PO (08:15)
[2025-01-03] MEDS: SODIUM BICARBONATE TAB 650 MG TABLET PO ×2 (08:15→17:09)
--- NOTE | 2025-01-03 10:11 | P.PNIM_ITS ---
Progress Note: A&P Assessment and Plan (1) Acute exacerbation of CHF (congestive heart failure): Code(s): I50.9 - Heart failure, unspecified Status: Acute Assessment and Plan: Echocardiogram shows ejection fraction 10-15% Daily weights Strict I and O Unable to initiate GDM D due to poor renal function and other comorbid conditions Goals of care discussed with her daughter in telephone Tomorrow again will discuss goals of care with her daughter in person Order left arm ultrasound shows no signs of DVT Head CT shows no significant finding (2) Acute UTI: Code(s): N39.0 - Urinary tract infection, site not specified Status: Acute Assessment and Plan: Continue ceftriaxone Subjective Date/time seen: 01/03/25 10:11 Interval history: 69-year-old female presents to [facility] ER on 01/01/2025 from local nursing facility with lethargy. She is more sleepy than usual however she is easily arousable and A&O x3. 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 01/02:Called POA and spoke the goals of care. I will be talking goals of care again tomorrow in person with her daughter. Patient has end-stage CHF. Patient is AO x3 01/03: Had a long discussion with her daughter and son. Discussed goals of care.Both will let us know about hospice after discussing with their mother Review of Systems Review of Systems: All systems reviewed & are unremarkable except as noted in HPI and below (Subjective) Exam Const: General: comfortable and no acute distress Other: A&O x3, drowsy however easily arousable. HENMT: Mouth: Yes moist mucous membranes Eyes: Pupils: Equal, round and reactive pupils present Neck: Neck: supple Resp: Effort & Inspection: normal respiratory effort Other: Poor participation Cardio: Rate: regular rate Rhythm: regular rhythm GI: Auscultation: normal bowel sounds Other: Fluctuant and nontender mass periumbilical size of a softball : General: Yes bladder normal to palpation Bimanual exam- vagina & uterus: bladder normal to palpation Neuro: Cranial nerves: Yes Equal, round and reactive pupils present Objective Data Vital Signs Vital Signs: Vital Signs - 24 hr 01/02/25 12:00 01/02/25 16:00 01/02/25 20:00 Temperature Pulse Rate 67 73 76 Respiratory Rate Blood Pressure Pulse Oximetry 01/02/25 21:16 01/03/25 00:00 01/03/25 04:00 Temperature 98.3 F Pulse Rate 77 72 76 Respiratory Rate 19 Blood Pressure 95/72 L Pulse Oximetry 98 01/03/25 05:45 01/03/25 08:00 01/03/25 08:12 Temperature 97.0 F L 99.4 F Pulse Rate 73 75 68 Respiratory Rate 20 20 Blood Pressure 100/41 L 122/38 L Pulse Oximetry 96 94 Intake/Output Intake/Output: Intake & Output 12/31/24 01/01/25 01/02/25 01/03/25 23:59 23:59 23:59 23:59 Intake Total 566.2 880 240 Output Total 1725 150 Balance 566.2 -845 90 Meds/Results Medications: Active Medications Generic Name Dose Route Start Last Admin Trade Name Freq PRN Reason Stop Dose Admin Acetaminophen 1,000 mg 01/02/25 20:27 01/02/25 21:16 Acetaminophen 500 Mg Tablet PO 1,000 mg Q6H PRN Administration Mild Pain (1-3) or Fever Atorvastatin Calcium 40 mg 01/02/25 21:00 01/02/25 21:16 Atorvastatin 40 Mg Tablet PO 40 mg HS KASIE Administration Carvedilol 12.5 mg 01/02/25 21:00 Carvedilol 12.5 Mg Tablet PO On Hold: 01/02/25 21:00 Q12HR KASIE Dextrose 12.5 gm 01/02/25 00:28 Dextrose 50% 25 Gm/50 Ml Syringe IV PUSH PRN PRN Hypoglycemia Protocol Ferrous Sulfate 325 mg 01/02/25 17:00 01/03/25 08:15 Ferrous Sulfate 325 Mg Tablet PO 325 mg BID KASIE Administration Furosemide 40 mg 01/02/25 17:00 01/03/25 08:13 Furosemide Inj 40 Mg/4 Ml Vial IV PUSH 40 mg BID KASIE Administration Glucose 15 gm 01/02/25 00:28 Glucose Oral Gel 15 Gm Of Glucse In 37.5 Gm Tube PO PRN PRN Hypoglycemia Protocol Ceftriaxone Sodium 1 gm/ 50 mls @ 100 mls/hr 01/02/25 21:00 01/02/25 21:17 Sodium Chloride IVPB 100 mls/hr Q24H KASIE Administration Dextrose 1,000 mls @ 100 mls/hr 01/02/25 00:28 Dextrose 5% 1,000 Ml IVPB PRN PRN Hypoglycemia Protocol Insulin Aspart 2 - 5 units 01/02/25 08:00 01/03/25 07:52 Insulin Aspart (*Bkc) 100 Units/Ml SUB-Q Not Given TIDWM KASIE Protocol Insulin Aspart 1 - 2 units 01/02/25 21:00 01/02/25 21:17 Insulin Aspart (*Bkc) 100 Units/Ml SUB-Q 1 units HS KASIE Administration Protocol Levothyroxine Sodium 100 mcg 01/03/25 06:30 01/03/25 05:27 Levothyroxine Sodium 100 Mcg Tablet PO 100 mcg DAILY@0630 KASIE Administration Pantoprazole Sodium 40 mg 01/03/25 09:00 01/03/25 08:15 Pantoprazole 40 Mg Tablet PO 40 mg DAILY KASIE Administration Potassium Chloride 20 meq 01/03/25 09:00 01/03/25 08:15 Potassium Chloride 20 Meq Er Tablet PO 20 meq DAILY KASIE Administration Sodium Bicarbonate 650 mg 01/02/25 17:00 01/03/25 08:15 Sodium Bicarbonate Tab 650 Mg Tablet PO 650 mg BID KASIE Administration Radiology Results: ITS Impressions Chest X-Ray 01/01/25 22:08 IMPRESSION: No acute pulmonary findings. Chest CTA 01/01/25 22:55 IMPRESSION: There is no pulmonary embolism, aortic dissection, or thoracic aneurysm. Cardiomegaly and pericardial effusion is noted. There is bilateral pleural effusions with groundglass opacity suggestive of pulmonary edema. All CT scans at this facility are performed using low dose modulation techniques as appropriate to perform exam including the following: automated exposure control; use of iterative reconstruction technique; adjustment of the mA and/or kV according to patient size (this includes techniques or standardized protocols for targeted exams where dose is matched to indication/reason for exam). Head CT 01/02/25 14:12 Impression: 1.No acute intracranial abnormality. Venous Doppler Study 01/02/25 14:51 IMPRESSION: 1. Patent left upper extremity veins. No evidence of deep venous thrombosis. Labs Labs: Laboratory Results - last 24 hr 01/02/25 01/02/25 01/02/25 11:52 16:50 20:09 WBC RBC Hgb Hct MCV MCH MCHC RDW Plt Count MPV Immature Gran % (Auto) Neut % (Auto) Lymph % (Auto) Drew % (Auto) Eos % (Auto) Baso % (Auto) Lymph # (Auto) Drew # (Auto) Eos # (Auto) Baso # (Auto) Abs Immat Gran (auto) Absolute Neuts (auto) Absolute Nucleated RBC Nucleated RBC % Sodium Potassium Chloride Carbon Dioxide Anion Gap BUN Creatinine Estim Creat Clear Calc Estimated GFR Glucose POC Capillary Glucose 193 H 267 H 244 H Calcium Total Bilirubin AST ALT Alkaline Phosphatase NT-Pro-B Natriuret Pep Total Protein Albumin 01/03/25 01/03/25 05:35 07:37 WBC 5.3 RBC 3.13 L Hgb 10.1 L Hct 31.9 L MCV 101.9 H MCH 32.3 MCHC 31.7 L RDW 18.3 H Plt Count 145 L MPV 10.4 Immature Gran % (Auto) 0.4 Neut % (Auto) 69.7 Lymph % (Auto) 15.9 L Drew % (Auto) 8.2 Eos % (Auto) 5.1 H Baso % (Auto) 0.7 Lymph # (Auto) 0.85 L Drew # (Auto) 0.4 Eos # (Auto) 0.3 Baso # (Auto) 0.0 Abs Immat Gran (auto) 0.02 Absolute Neuts (auto) 3.7 Absolute Nucleated RBC 0.000 Nucleated RBC % 0.0 Sodium 137 Potassium 3.5 Chloride 98 Carbon Dioxide 30 Anion Gap 9 BUN 48 H Creatinine 1.38 H Estim Creat Clear Calc 37 Estimated GFR 38 L Glucose 128 H POC Capillary Glucose 134 H Calcium 8.0 L Total Bilirubin 0.6 AST 29 ALT 13 Alkaline Phosphatase 53 NT-Pro-B Natriuret Pep > 15812 H Total Protein 7.6 Albumin 3.6 Hospitalist MIPS Advance Care Plan I have confirmed that the patient's Advanced Care Plan is present, code status is documented, or surrogate decision maker is listed in patient medical record.: Yes Medication Reconciliation I have utilized all available resources to obtain, update and review the patients current medications (includes all prescriptions, OTC, herbals, cannabis, and nutritional supplements).: Yes
[2025-01-03] MEDS: ACETAMINOPHEN 500 MG TABLET 1000 MG PO (14:28)
[2025-01-03] MEDS: cefTRIAXone 1 GM in SODIUM CHLORIDE 0.9% IV 50 ML 100 ML IVPB (21:29)
[2025-01-03] MEDS: ATORVASTATIN 40 MG TABLET PO (21:29)
[2025-01-04] VITALS (9 sets, daily range): BP systolic 112–149; BP diastolic 50–53; PULSE 70–77; RESP 16–24; TEMP 36.4–36.7; O2SAT 98–100
[2025-01-04] MEDS: LEVOTHYROXINE SODIUM 100 MCG TABLET PO (05:33)
[2025-01-04 05:34] LABS: Hematocrit 32.6 % (37.0-47.0); Hemoglobin 10.3 g/dL (12.0-15.0); Mean Corpuscular HGB Conc 31.6 g/dl (32-36); Mean Corpuscular Hemoglobin 31.9 pg (26-34); Mean Corpuscular Volume 100.9 fl (80-100); Platelet Count Result 147 k/mm3 (150-375); Red Blood Count 3.23 M/mm3 (4.2-5.4); White Blood Count 5.6 K/mm3 (4.5-10.0)
[2025-01-04 06:00] LABS: Alanine Aminotransferase 11 U/L (6-35); Albumin Level 3.4 g/dL (3.5-5.1); Alkaline Phosphatase 42 U/L (38-126); Anion Gap 10 mmol/L (4-12); Aspartate Amino Transferase 32 U/L (14-36); Bilirubin,Total 0.7 mg/dL (0.2-1.3); Blood Urea Nitrogen 51 mg/dL (7-17); Calcium 7.7 mg/dL (8.4-10.2); Carbon Dioxide 27 mmol/L (22-30); Chloride 96 mmol/L (98-107); Estimated CRCL calculation 38 ml/min; Estimated Glomerular Filt Rate 39; Glucose 144 mg/dL (65-110); Potassium 3.7 mmol/L (3.4-5.0); Sodium 133 mmol/L (137-145); Total Protein 7.4 g/dL (6.3-8.2)
[2025-01-04] MEDS: POTASSIUM CHLORIDE 20 MEQ ER TABLET PO (08:55)
[2025-01-04] MEDS: PANTOPRAZOLE 40 MG TABLET PO (08:55)
[2025-01-04] MEDS: FERROUS SULFATE 325 MG TABLET PO ×2 (08:55→17:03)
[2025-01-04] MEDS: FUROSEMIDE INJ 40 MG/4 ML VIAL IV PUSH ×2 (08:55→17:04)
[2025-01-04] MEDS: SODIUM BICARBONATE TAB 650 MG TABLET PO ×2 (08:55→17:03)
[2025-01-04] MEDS: ACETAMINOPHEN 500 MG TABLET 1000 MG PO ×2 (10:48→22:07)
[2025-01-04] MEDS: INSULIN ASPART (*BKC) 100 UNITS/ML SUB-Q ×2 (12:02→21:54)
--- NOTE | 2025-01-04 15:51 | P.PNIM_ITS ---
Progress Note: A&P Assessment and Plan (1) Acute exacerbation of CHF (congestive heart failure): Code(s): I50.9 - Heart failure, unspecified Status: Acute Assessment and Plan: Echocardiogram shows ejection fraction 10-15% Daily weights Strict I and O Unable to initiate GDM D due to poor renal function and other comorbid conditions Goals of care discussed with her daughter in telephone Tomorrow again will discuss goals of care with her daughter in person Left arm ultrasound shows no signs of DVT Head CT shows no significant finding (2) Acute UTI: Code(s): N39.0 - Urinary tract infection, site not specified Status: Acute Assessment and Plan: Continue ceftriaxone Subjective Date/time seen: 01/04/25 15:51 Interval history: 69-year-old female presents to [facility] ER on 01/01/2025 from local nursing facility with lethargy. She is more sleepy than usual however she is easily arousable and A&O x3. 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 01/02:Called POA and spoke the goals of care. I will be talking goals of care again tomorrow in person with her daughter. Patient has end-stage CHF. Patient is AO x3 01/03: Had a long discussion with her daughter and son. Discussed goals of care.Both will let us know about hospice after discussing with their mother 01/04: No acute events overnight. Possible discharge with the hospice Monday Review of Systems Review of Systems: All systems reviewed & are unremarkable except as noted in HPI and below (Subjective) Exam Const: General: comfortable and no acute distress Other: A&O x3, drowsy however easily arousable. HENMT: Mouth: Yes moist mucous membranes Eyes: Pupils: Equal, round and reactive pupils present Neck: Neck: supple Resp: Effort & Inspection: normal respiratory effort Other: Poor participation Cardio: Rate: regular rate Rhythm: regular rhythm GI: Auscultation: normal bowel sounds Other: Fluctuant and nontender mass periumbilical size of a softball : General: Yes bladder normal to palpation Bimanual exam- vagina & uterus: bladder normal to palpation Neuro: Cranial nerves: Yes Equal, round and reactive pupils present Objective Data Vital Signs Vital Signs: Vital Signs - 24 hr 01/03/25 16:00 01/03/25 17:09 01/03/25 20:00 Temperature Pulse Rate 77 Respiratory Rate Blood Pressure 123/93 H Pulse Oximetry Oxygen Delivery Room Air 01/03/25 20:00 01/03/25 21:41 01/04/25 00:00 Temperature 98.7 F Pulse Rate 74 77 73 Respiratory Rate 14 Blood Pressure 110/57 L Pulse Oximetry 97 Oxygen Delivery 01/04/25 04:00 01/04/25 05:38 01/04/25 08:00 Temperature 97.8 F Pulse Rate 73 70 73 Respiratory Rate 16 Blood Pressure 149/53 H Pulse Oximetry 100 Oxygen Delivery 01/04/25 12:00 01/04/25 14:00 Temperature 97.5 F L Pulse Rate 77 73 Respiratory Rate 24 H Blood Pressure 118/50 L Pulse Oximetry 99 Oxygen Delivery Intake/Output Intake/Output: Intake & Output 01/01/25 01/02/25 01/03/25 01/04/25 23:59 23:59 23:59 23:59 Intake Total 566.2 896 240 4827 Output Total 1422 514 8114 Balance 566.2 -856 329 -501 Meds/Results Medications: Active Medications Generic Name Dose Route Start Last Admin Trade Name Freq PRN Reason Stop Dose Admin Acetaminophen 1,000 mg 01/02/25 20:27 01/04/25 10:48 Acetaminophen 500 Mg Tablet PO 1,000 mg Q6H PRN Administration Mild Pain (1-3) or Fever Atorvastatin Calcium 40 mg 01/02/25 21:00 01/03/25 21:29 Atorvastatin 40 Mg Tablet PO 40 mg HS KASIE Administration Carvedilol 12.5 mg 01/02/25 21:00 Carvedilol 12.5 Mg Tablet PO On Hold: 01/02/25 21:00 Q12HR KASIE Dextrose 12.5 gm 01/02/25 00:28 Dextrose 50% 25 Gm/50 Ml Syringe IV PUSH PRN PRN Hypoglycemia Protocol Ferrous Sulfate 325 mg 01/02/25 17:00 01/04/25 08:55 Ferrous Sulfate 325 Mg Tablet PO 325 mg BID KASIE Administration Furosemide 40 mg 01/02/25 17:00 01/04/25 08:55 Furosemide Inj 40 Mg/4 Ml Vial IV PUSH 40 mg BID KASIE Administration Glucose 15 gm 01/02/25 00:28 Glucose Oral Gel 15 Gm Of Glucse In 37.5 Gm Tube PO PRN PRN Hypoglycemia Protocol Ceftriaxone Sodium 1 gm/ 50 mls @ 100 mls/hr 01/02/25 21:00 01/03/25 21:29 Sodium Chloride IVPB 100 mls/hr Q24H KASIE Administration Dextrose 1,000 mls @ 100 mls/hr 01/02/25 00:28 Dextrose 5% 1,000 Ml IVPB PRN PRN Hypoglycemia Protocol Insulin Aspart 2 - 5 units 01/02/25 08:00 01/04/25 12:02 Insulin Aspart (*Bkc) 100 Units/Ml SUB-Q 2 units TIDWM KASIE Administration Protocol Insulin Aspart 1 - 2 units 01/02/25 21:00 01/03/25 21:30 Insulin Aspart (*Bkc) 100 Units/Ml SUB-Q Not Given HS KASIE Protocol Levothyroxine Sodium 100 mcg 01/03/25 06:30 01/04/25 05:33 Levothyroxine Sodium 100 Mcg Tablet PO 100 mcg DAILY@0630 KASIE Administration Pantoprazole Sodium 40 mg 01/03/25 09:00 01/04/25 08:55 Pantoprazole 40 Mg Tablet PO 40 mg DAILY KASIE Administration Potassium Chloride 20 meq 01/03/25 09:00 01/04/25 08:55 Potassium Chloride 20 Meq Er Tablet PO 20 meq DAILY KASIE Administration Sodium Bicarbonate 650 mg 01/02/25 17:00 01/04/25 08:55 Sodium Bicarbonate Tab 650 Mg Tablet PO 650 mg BID KASIE Administration Radiology Results: ITS Impressions Chest X-Ray 01/01/25 22:08 IMPRESSION: No acute pulmonary findings. Chest CTA 01/01/25 22:55 IMPRESSION: There is no pulmonary embolism, aortic dissection, or thoracic aneurysm. Cardiomegaly and pericardial effusion is noted. There is bilateral pleural effusions with groundglass opacity suggestive of pulmonary edema. All CT scans at this facility are performed using low dose modulation techniques as appropriate to perform exam including the following: automated exposure control; use of iterative reconstruction technique; adjustment of the mA and/or kV according to patient size (this includes techniques or standardized protocols for targeted exams where dose is matched to indication/reason for exam). Head CT 01/02/25 14:12 Impression: 1.No acute intracranial abnormality. Venous Doppler Study 01/02/25 14:51 IMPRESSION: 1. Patent left upper extremity veins. No evidence of deep venous thrombosis. Labs Labs: Laboratory Results - last 24 hr 01/03/25 01/03/25 01/04/25 16:49 20:49 05:09 WBC 5.6 RBC 3.23 L Hgb 10.3 L Hct 32.6 L MCV 100.9 H MCH 31.9 MCHC 31.6 L RDW 18.4 H Plt Count 147 L MPV 11.1 H Sodium 133 L Potassium 3.7 Chloride 96 L Carbon Dioxide 27 Anion Gap 10 BUN 51 H Creatinine 1.34 H Estim Creat Clear Calc 38 Estimated GFR 39 L Glucose 144 H POC Capillary Glucose 184 H 195 H Calcium 7.7 L Total Bilirubin 0.7 AST 32 ALT 11 Alkaline Phosphatase 42 Total Protein 7.4 Albumin 3.4 L 01/04/25 01/04/25 08:35 11:45 WBC RBC Hgb Hct MCV MCH MCHC RDW Plt Count MPV Sodium Potassium Chloride Carbon Dioxide Anion Gap BUN Creatinine Estim Creat Clear Calc Estimated GFR Glucose POC Capillary Glucose 164 H 221 H Calcium Total Bilirubin AST ALT Alkaline Phosphatase Total Protein Albumin Hospitalist MIPS Advance Care Plan I have confirmed that the patient's Advanced Care Plan is present, code status is documented, or surrogate decision maker is listed in patient medical record.: Yes Medication Reconciliation I have utilized all available resources to obtain, update and review the patients current medications (includes all prescriptions, OTC, herbals, cannabis, and nutritional supplements).: Yes
[2025-01-04] MEDS: ATORVASTATIN 40 MG TABLET PO (21:54)
[2025-01-04] MEDS: cefTRIAXone 1 GM in SODIUM CHLORIDE 0.9% IV 50 ML 100 ML IVPB (21:54)
[2025-01-05] VITALS (10 sets, daily range): BP systolic 111–159; BP diastolic 46–65; PULSE 71–80; RESP 16–20; TEMP 36.5–36.7; O2SAT 95–100
[2025-01-05] MEDS: LEVOTHYROXINE SODIUM 100 MCG TABLET PO (05:39)
[2025-01-05] MEDS: ACETAMINOPHEN 500 MG TABLET 1000 MG PO (05:39)
[2025-01-05] MEDS: POTASSIUM CHLORIDE 20 MEQ ER TABLET PO (07:57)
[2025-01-05] MEDS: PANTOPRAZOLE 40 MG TABLET PO (07:57)
[2025-01-05] MEDS: SODIUM BICARBONATE TAB 650 MG TABLET PO ×2 (07:58→16:54)
[2025-01-05] MEDS: FUROSEMIDE INJ 40 MG/4 ML VIAL IV PUSH ×2 (07:58→16:55)
[2025-01-05] MEDS: FERROUS SULFATE 325 MG TABLET PO ×2 (07:58→16:54)
--- NOTE | 2025-01-05 13:26 | P.PNIM_ITS ---
Progress Note: A&P Assessment and Plan (1) Acute exacerbation of CHF (congestive heart failure): Code(s): I50.9 - Heart failure, unspecified Status: Acute Assessment and Plan: Echocardiogram shows ejection fraction 10-15% Daily weights Strict I and O Unable to initiate GDM D due to poor renal function and other comorbid conditions Goals of care discussed with her daughter in telephone Tomorrow again will discuss goals of care with her daughter in person Left arm ultrasound shows no signs of DVT Head CT shows no significant finding (2) Acute UTI: Code(s): N39.0 - Urinary tract infection, site not specified Status: Acute Assessment and Plan: Continue ceftriaxone Plan patient remains clinically stable and sleeping, no family members present, plan is to discharge patient with hospice tomorrow. Subjective Date/time seen: 01/05/25 13:26 Interval history: 69-year-old female presents to [facility] ER on 01/01/2025 from local nursing facility with lethargy. She is more sleepy than usual however she is easily arousable and A&O x3. 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 01/02:Called POA and spoke the goals of care. I will be talking goals of care again tomorrow in person with her daughter. Patient has end-stage CHF. Patient is AO x3 01/03: Had a long discussion with her daughter and son. Discussed goals of care.Both will let us know about hospice after discussing with their mother 01/04: No acute events overnight. Possible discharge with the hospice Monday patient remains clinically stable and sleeping, no family members present, plan is to discharge patient with hospice tomorrow. Review of Systems Review of Systems: All systems reviewed & are unremarkable except as noted in HPI and below (Subjective) Exam Narrative: Elderly frail Patient is comfortable, NAD HEENT: eyes are clear and none icteric LUNGS:CTA HEART: RR S1S2 ABD: BS+, Soft and nontender Lower extremities: no edema SKIN: nonjaundiced Neuro: grossly intact. Objective Data Vital Signs Vital Signs: Vital Signs - 24 hr 01/04/25 14:00 01/04/25 16:00 01/04/25 20:00 Temperature 36.4 C L Pulse Rate 73 71 Respiratory Rate 24 H Blood Pressure 118/50 L Pulse Oximetry 99 Oxygen Delivery Room Air 01/04/25 20:00 01/04/25 21:26 01/05/25 00:00 Temperature 36.7 C Pulse Rate 77 73 71 Respiratory Rate 18 Blood Pressure 112/52 L Pulse Oximetry 98 Oxygen Delivery 01/05/25 04:00 01/05/25 04:04 01/05/25 08:00 Temperature 36.7 C Pulse Rate 75 75 75 Respiratory Rate 20 20 Blood Pressure 112/64 Pulse Oximetry 100 100 Oxygen Delivery Room Air 01/05/25 08:00 01/05/25 12:00 Temperature Pulse Rate 79 76 Respiratory Rate Blood Pressure Pulse Oximetry Oxygen Delivery Intake/Output Intake/Output: Intake & Output 01/02/25 01/03/25 01/04/25 01/05/25 23:59 23:59 23:59 23:59 Intake Total 431 017 1722 1000 Output Total 9651 903 3615 800 Balance -795 620 -255 200 Meds/Results Medications: Active Medications Generic Name Dose Route Start Last Admin Trade Name Freq PRN Reason Stop Dose Admin Acetaminophen 1,000 mg 01/02/25 20:27 01/05/25 05:39 Acetaminophen 500 Mg Tablet PO 1,000 mg Q6H PRN Administration Mild Pain (1-3) or Fever Atorvastatin Calcium 40 mg 01/02/25 21:00 01/04/25 21:54 Atorvastatin 40 Mg Tablet PO 40 mg HS KASIE Administration Carvedilol 12.5 mg 01/02/25 21:00 Carvedilol 12.5 Mg Tablet PO On Hold: 01/02/25 21:00 Q12HR KASIE Dextrose 12.5 gm 01/02/25 00:28 Dextrose 50% 25 Gm/50 Ml Syringe IV PUSH PRN PRN Hypoglycemia Protocol Ferrous Sulfate 325 mg 01/02/25 17:00 01/05/25 07:58 Ferrous Sulfate 325 Mg Tablet PO 325 mg BID KASIE Administration Furosemide 40 mg 01/02/25 17:00 01/05/25 07:58 Furosemide Inj 40 Mg/4 Ml Vial IV PUSH 40 mg BID KASIE Administration Glucose 15 gm 01/02/25 00:28 Glucose Oral Gel 15 Gm Of Glucse In 37.5 Gm Tube PO PRN PRN Hypoglycemia Protocol Ceftriaxone Sodium 1 gm/ 50 mls @ 100 mls/hr 01/02/25 21:00 01/04/25 21:54 Sodium Chloride IVPB 100 mls/hr Q24H KASIE Administration Dextrose 1,000 mls @ 100 mls/hr 01/02/25 00:28 Dextrose 5% 1,000 Ml IVPB PRN PRN Hypoglycemia Protocol Insulin Aspart 2 - 5 units 01/02/25 08:00 01/05/25 12:00 Insulin Aspart (*Bkc) 100 Units/Ml SUB-Q Not Given TIDWM KASIE Protocol Insulin Aspart 1 - 2 units 01/02/25 21:00 01/04/25 21:54 Insulin Aspart (*Bkc) 100 Units/Ml SUB-Q 1 units HS KASIE Administration Protocol Levothyroxine Sodium 100 mcg 01/03/25 06:30 01/05/25 05:39 Levothyroxine Sodium 100 Mcg Tablet PO 100 mcg DAILY@0630 KASIE Administration Pantoprazole Sodium 40 mg 01/03/25 09:00 01/05/25 07:57 Pantoprazole 40 Mg Tablet PO 40 mg DAILY KASIE Administration Potassium Chloride 20 meq 01/03/25 09:00 01/05/25 07:57 Potassium Chloride 20 Meq Er Tablet PO 20 meq DAILY KASIE Administration Sodium Bicarbonate 650 mg 01/02/25 17:00 01/05/25 07:58 Sodium Bicarbonate Tab 650 Mg Tablet PO 650 mg BID KASIE Administration Radiology Results: ITS Impressions Chest X-Ray 01/01/25 22:08 IMPRESSION: No acute pulmonary findings. Chest CTA 01/01/25 22:55 IMPRESSION: There is no pulmonary embolism, aortic dissection, or thoracic aneurysm. Cardiomegaly and pericardial effusion is noted. There is bilateral pleural effusions with groundglass opacity suggestive of pulmonary edema. All CT scans at this facility are performed using low dose modulation techniques as appropriate to perform exam including the following: automated exposure control; use of iterative reconstruction technique; adjustment of the mA and/or kV according to patient size (this includes techniques or standardized protocols for targeted exams where dose is matched to indication/reason for exam). Head CT 01/02/25 14:12 Impression: 1.No acute intracranial abnormality. Venous Doppler Study 01/02/25 14:51 IMPRESSION: 1. Patent left upper extremity veins. No evidence of deep venous thrombosis. Labs Labs: Laboratory Results - last 24 hr 01/04/25 01/04/25 01/05/25 16:43 21:30 07:32 POC Capillary Glucose 141 H 255 H 135 H 01/05/25 11:46 POC Capillary Glucose 121 H
[2025-01-05] MEDS: ATORVASTATIN 40 MG TABLET PO (21:24)
[2025-01-05] MEDS: cefTRIAXone 1 GM in SODIUM CHLORIDE 0.9% IV 50 ML 100 ML IVPB (21:25)
[2025-01-06] VITALS (11 sets, daily range): BP systolic 84–100; BP diastolic 55–68; PULSE 79–90; RESP 13–16; TEMP 36.2–36.6; O2SAT 96–99
[2025-01-06] MEDS: ACETAMINOPHEN 500 MG TABLET 1000 MG PO ×2 (00:57→23:25)
[2025-01-06 05:50] LABS: Hematocrit 32.5 % (37.0-47.0); Hemoglobin 9.9 g/dL (12.0-15.0); Mean Corpuscular HGB Conc 30.5 g/dl (32-36); Mean Corpuscular Hemoglobin 31.7 pg (26-34); Mean Corpuscular Volume 104.2 fl (80-100); Platelet Count Result 146 k/mm3 (150-375); Red Blood Count 3.12 M/mm3 (4.2-5.4); White Blood Count 4.6 K/mm3 (4.5-10.0)
[2025-01-06] MEDS: LEVOTHYROXINE SODIUM 100 MCG TABLET PO (06:14)
[2025-01-06 06:20] LABS: Anion Gap 6 mmol/L (4-12); Blood Urea Nitrogen 42 mg/dL (7-17); Calcium 8.1 mg/dL (8.4-10.2); Carbon Dioxide 30 mmol/L (22-30); Chloride 98 mmol/L (98-107); Estimated CRCL calculation 29 ml/min; Estimated Glomerular Filt Rate 33; Glucose 198 mg/dL (65-110); Magnesium 1.6 mg/dL (1.6-2.3); Sodium 134 mmol/L (137-145)
[2025-01-06 06:28] LABS: Potassium 3.4 mmol/L (3.4-5.0)
[2025-01-06] MEDS: PANTOPRAZOLE 40 MG TABLET PO (08:36)
[2025-01-06] MEDS: FERROUS SULFATE 325 MG TABLET PO ×2 (08:36→16:30)
[2025-01-06] MEDS: SODIUM BICARBONATE TAB 650 MG TABLET PO ×2 (08:36→16:30)
[2025-01-06] MEDS: POTASSIUM CHLORIDE 20 MEQ ER TABLET PO (08:37)
[2025-01-06] MEDS: INSULIN ASPART (*BKC) 100 UNITS/ML SUB-Q (11:22)
--- NOTE | 2025-01-06 17:04 | PM.IMPN ---
Progress Note: A&P Assessment and Plan (1) Acute exacerbation of CHF (congestive heart failure): Code(s): I50.9 - Heart failure, unspecified Status: Acute Assessment and Plan: Echocardiogram shows ejection fraction 10-15% Daily weights Strict I and O Unable to initiate GDM D due to poor renal function and other comorbid conditions Goals of care discussed with her daughter in telephone Tomorrow again will discuss goals of care with her daughter in person Left arm ultrasound shows no signs of DVT Head CT shows no significant finding (2) Acute UTI: Code(s): N39.0 - Urinary tract infection, site not specified Status: Acute Assessment and Plan: Continue ceftriaxone Plan patient remains clinically stable and sleeping, no family members present, plan is to discharge patient with hospice tomorrow. today patient family has decided to take home where she will be admitted under hospice care, hospice is consulted and arrangement are being made, possibly discharge patient tomorrow. will monitor Subjective Date/time seen: 01/06/25 17:04 Interval history: 69-year-old female presents to [facility] ER on 01/01/2025 from local nursing facility with lethargy. She is more sleepy than usual however she is easily arousable and A&O x3. 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 01/02:Called POA and spoke the goals of care. I will be talking goals of care again tomorrow in person with her daughter. Patient has end-stage CHF. Patient is AO x3 01/03: Had a long discussion with her daughter and son. Discussed goals of care.Both will let us know about hospice after discussing with their mother 01/04: No acute events overnight. Possible discharge with the hospice Monday patient remains clinically stable and sleeping, no family members present, plan is to discharge patient with hospice tomorrow. today patient family has decided to take home where she will be admitted under hospice care, hospice is consulted and arrangement are being made, possibly discharge patient tomorrow. will monitor Review of Systems Review of Systems: All systems reviewed & are unremarkable except as noted in HPI and below (Subjective) Exam Narrative: Elderly frail Patient is comfortable, NAD HEENT: eyes are clear and none icteric LUNGS:CTA HEART: RR S1S2 ABD: BS+, Soft and nontender Lower extremities: no edema SKIN: nonjaundiced Neuro: grossly intact. Objective Data Vital Signs Vital Signs: Vital Signs - 24 hr 01/05/25 20:00 01/05/25 20:00 01/05/25 21:35 Temperature 36.6 C Pulse Rate 77 75 Respiratory Rate 16 Blood Pressure 159/46 H Pulse Oximetry 97 Oxygen Delivery Room Air 01/05/25 21:52 01/06/25 00:00 01/06/25 04:00 Temperature Pulse Rate 79 85 Respiratory Rate Blood Pressure Pulse Oximetry 97 Oxygen Delivery Room Air 01/06/25 05:13 01/06/25 06:59 01/06/25 08:00 Temperature 36.4 C Pulse Rate 80 90 Respiratory Rate 13 Blood Pressure 84/55 L 94/68 L Pulse Oximetry 99 Oxygen Delivery 01/06/25 12:00 01/06/25 14:00 01/06/25 16:00 Temperature 36.6 C Pulse Rate 87 84 84 Respiratory Rate 14 Blood Pressure 98/68 L Pulse Oximetry 96 Oxygen Delivery Intake/Output Intake/Output: Intake & Output 01/03/25 01/04/25 01/05/25 01/06/25 23:59 23:59 23:59 23:59 Intake Total 770 1270 1960 582 Output Total 150 1475 4150 825 Balance 620 -205 -2190 -243 Meds/Results Medications: Active Medications Generic Name Dose Route Start Last Admin Trade Name Freq PRN Reason Stop Dose Admin Acetaminophen 1,000 mg 01/02/25 20:27 01/06/25 00:57 Acetaminophen 500 Mg Tablet PO 1,000 mg Q6H PRN Administration Mild Pain (1-3) or Fever Atorvastatin Calcium 40 mg 01/02/25 21:00 01/05/25 21:24 Atorvastatin 40 Mg Tablet PO 40 mg HS KASIE Administration Carvedilol 12.5 mg 01/02/25 21:00 Carvedilol 12.5 Mg Tablet PO On Hold: 01/02/25 21:00 Q12HR KASIE Dextrose 12.5 gm 01/02/25 00:28 Dextrose 50% 25 Gm/50 Ml Syringe IV PUSH PRN PRN Hypoglycemia Protocol Ferrous Sulfate 325 mg 01/02/25 17:00 01/06/25 16:30 Ferrous Sulfate 325 Mg Tablet PO 325 mg BID KASIE Administration Furosemide 40 mg 01/07/25 09:00 Furosemide 40 Mg Tablet PO DAILY KASIE Glucose 15 gm 01/02/25 00:28 Glucose Oral Gel 15 Gm Of Glucse In 37.5 Gm Tube PO PRN PRN Hypoglycemia Protocol Dextrose 1,000 mls @ 100 mls/hr 01/02/25 00:28 Dextrose 5% 1,000 Ml IVPB PRN PRN Hypoglycemia Protocol Insulin Aspart 2 - 5 units 01/02/25 08:00 01/06/25 16:26 Insulin Aspart (*Bkc) 100 Units/Ml SUB-Q Not Given TIDWM KASIE Protocol Insulin Aspart 1 - 2 units 01/02/25 21:00 01/05/25 21:27 Insulin Aspart (*Bkc) 100 Units/Ml SUB-Q Not Given HS KASIE Protocol Levothyroxine Sodium 100 mcg 01/03/25 06:30 01/06/25 06:14 Levothyroxine Sodium 100 Mcg Tablet PO 100 mcg DAILY@0630 KASIE Administration Pantoprazole Sodium 40 mg 01/03/25 09:00 01/06/25 08:36 Pantoprazole 40 Mg Tablet PO 40 mg DAILY KASIE Administration Potassium Chloride 20 meq 01/03/25 09:00 01/06/25 08:37 Potassium Chloride 20 Meq Er Tablet PO 20 meq DAILY KASIE Administration Sodium Bicarbonate 650 mg 01/02/25 17:00 01/06/25 16:30 Sodium Bicarbonate Tab 650 Mg Tablet PO 650 mg BID KASIE Administration Radiology Results: ITS Impressions Chest X-Ray 01/01/25 22:08 IMPRESSION: No acute pulmonary findings. Chest CTA 01/01/25 22:55 IMPRESSION: There is no pulmonary embolism, aortic dissection, or thoracic aneurysm. Cardiomegaly and pericardial effusion is noted. There is bilateral pleural effusions with groundglass opacity suggestive of pulmonary edema. All CT scans at this facility are performed using low dose modulation techniques as appropriate to perform exam including the following: automated exposure control; use of iterative reconstruction technique; adjustment of the mA and/or kV according to patient size (this includes techniques or standardized protocols for targeted exams where dose is matched to indication/reason for exam). Head CT 01/02/25 14:12 Impression: 1.No acute intracranial abnormality. Venous Doppler Study 01/02/25 14:51 IMPRESSION: 1. Patent left upper extremity veins. No evidence of deep venous thrombosis. Labs Labs: Laboratory Results - last 24 hr 01/05/25 01/06/25 01/06/25 20:15 05:38 07:31 WBC 4.6 RBC 3.12 L Hgb 9.9 L Hct 32.5 L MCV 104.2 H MCH 31.7 MCHC 30.5 L RDW 18.5 H Plt Count 146 L MPV 10.6 H Sodium 134 L Potassium 3.4 Chloride 98 Carbon Dioxide 30 Anion Gap 6 BUN 42 H Creatinine 1.54 H Estim Creat Clear Calc 29 Estimated GFR 33 L Glucose 198 H POC Capillary Glucose 156 H 182 H Calcium 8.1 L Magnesium 1.6 01/06/25 01/06/25 11:03 16:19 WBC RBC Hgb Hct MCV MCH MCHC RDW Plt Count MPV Sodium Potassium Chloride Carbon Dioxide Anion Gap BUN Creatinine Estim Creat Clear Calc Estimated GFR Glucose POC Capillary Glucose 208 H 145 H Calcium Magnesium
[2025-01-06] MEDS: ATORVASTATIN 40 MG TABLET PO (21:02)
[2025-01-07] VITALS: PULSE 84
[2025-01-07 04:00] VITALS: PULSE 81
[2025-01-07 05:40] LABS: Hematocrit 32.6 % (37.0-47.0); Hemoglobin 10.2 g/dL (12.0-15.0); Mean Corpuscular HGB Conc 31.3 g/dl (32-36); Mean Corpuscular Hemoglobin 31.3 pg (26-34); Mean Corpuscular Volume 100.0 fl (80-100); Platelet Count Result 135 k/mm3 (150-375); Red Blood Count 3.26 M/mm3 (4.2-5.4); White Blood Count 4.2 K/mm3 (4.5-10.0)
[2025-01-07 05:45] VITALS: BP 137/52; PULSE 81; RESP 17; TEMP 36.5; O2SAT 95
[2025-01-07 06:00] LABS: Anion Gap 9 mmol/L (4-12); Blood Urea Nitrogen 39 mg/dL (7-17); Calcium 7.8 mg/dL (8.4-10.2); Carbon Dioxide 27 mmol/L (22-30); Chloride 97 mmol/L (98-107); Estimated CRCL calculation 42 ml/min; Estimated Glomerular Filt Rate 45; Glucose 117 mg/dL (65-110); Magnesium 1.8 mg/dL (1.6-2.3); Potassium 3.6 mmol/L (3.4-5.0); Sodium 133 mmol/L (137-145)
[2025-01-07] MEDS: LEVOTHYROXINE SODIUM 100 MCG TABLET PO (06:04)
[2025-01-07 07:42] VITALS: BP 122/84
[2025-01-07 08:00] VITALS: PULSE 78
[2025-01-07] MEDS: POTASSIUM CHLORIDE 20 MEQ ER TABLET PO (08:39)
[2025-01-07] MEDS: FERROUS SULFATE 325 MG TABLET PO (08:39)
[2025-01-07] MEDS: FUROSEMIDE 40 MG TABLET PO (08:39)
[2025-01-07] MEDS: PANTOPRAZOLE 40 MG TABLET PO (08:39)
[2025-01-07] MEDS: SODIUM BICARBONATE TAB 650 MG TABLET PO (08:39)
--- NOTE | 2025-01-07 13:29 | P.DS_ITS ---
DS: Admitting Diagnosis Discharge Date 01/07/25 Admitting Diagnosis Lethargy DS: Discharge Diagnosis Discharge Diagnosis (1) Acute exacerbation of CHF (congestive heart failure): Code(s): I50.9 - Heart failure, unspecified Status: Acute Assessment and Plan: Echocardiogram shows ejection fraction 10-15% Daily weights Strict I and O Unable to initiate GDM D due to poor renal function and other comorbid conditions Goals of care discussed with her daughter in telephone Tomorrow again will discuss goals of care with her daughter in person Left arm ultrasound shows no signs of DVT Head CT shows no significant finding (2) Acute UTI: Code(s): N39.0 - Urinary tract infection, site not specified Status: Acute Assessment and Plan: Continue ceftriaxone Plan patient remains clinically stable and sleeping, no family members present, plan is to discharge patient with hospice tomorrow. today patient family has decided to take home where she will be admitted under hospice care, hospice is consulted and arrangement are being made, patient remians her baseline. will discharge home today where she will be admitted under hospice care DS: Summary Hospital Course Hospital Course: Echocardiogram shows ejection fraction 10-15% Daily weights Strict I and O Unable to initiate GDM D due to poor renal function and other comorbid conditions Goals of care discussed with her daughter in telephone Tomorrow again will discuss goals of care with her daughter in person Left arm ultrasound shows no signs of DVT Head CT shows no significant finding today patient family has decided to take home where she will be admitted under hospice care, hospice is consulted and arrangement are being made, patient remians her baseline. will discharge home today where she will be admitted under hospice care Time Spent with Patient Time attestation: Total time spent providing and/or coordinating discharge services: Exam Narrative: Elderly frail Patient is comfortable, NAD HEENT: eyes are clear and none icteric LUNGS:CTA HEART: RR S1S2 ABD: BS+, Soft and nontender Lower extremities: no edema SKIN: nonjaundiced Neuro: grossly intact. DS: Data Data Completed and Pending Labs on day of discharge: Labs from last 24 hours 01/07/25 01/07/25 01/07/25 11:06 07:36 07:17 WBC RBC Hgb Hct MCV MCH MCHC RDW Plt Count MPV Sodium Potassium Chloride Carbon Dioxide Anion Gap BUN Creatinine Estim Creat Clear Calc Estimated GFR Glucose POC Capillary Glucose 117 H 110 H 120 H Calcium Magnesium 01/07/25 01/06/25 01/06/25 05:29 19:53 16:19 WBC 4.2 L RBC 3.26 L Hgb 10.2 L Hct 32.6 L MCV 100.0 MCH 31.3 MCHC 31.3 L RDW 18.1 H Plt Count 135 L MPV 10.5 H Sodium 133 L Potassium 3.6 Chloride 97 L Carbon Dioxide 27 Anion Gap 9 BUN 39 H Creatinine 1.19 H Estim Creat Clear Calc 42 Estimated GFR 45 L Glucose 117 H POC Capillary Glucose 157 H 145 H Calcium 7.8 L Magnesium 1.8 Discharge Plan Discharge Attending physician on discharge: Chantelle Gonsales Consulting providers: Dre Connolly; Rowdy Law; Lizbeth Bashir; Roman Quintero; Silver Rodriguez; Chris Luis; Faraz Liz Discharging Clinician: Ismael Taylor Patient Disposition: Hospice - Home Activity: as tolerated Diet: heart healthy Discharge Instructions: patient is being discharged home and will be admitted under [facility] hospice care Patient Language: Georgian Stand Alone Forms: General Discharge Information Discharge Medications: Continued atorvastatin 40 mg tablet 40 mg PO HS levothyroxine 100 mcg tablet 100 mcg PO DAILY potassium chloride 10 mEq capsule, extended release 20 meq PO DAILY acetaminophen 325 mg capsule 650 mg PO Q4H PRN (Reason: pain or fever) cyanocobalamin (vitamin B-12) 1,000 mcg capsule 1,000 mcg PO DAILY calcium carbonate-vitamin D3 [Calcium 600 + D(3)] 600 mg-5 mcg (200 unit) capsule 1 cap PO DAILY Multi-Vitamin HP/Minerals Capsule 1 cap PO DAILY magnesium hydroxide [Milk of Magnesia] 400 mg/5 mL Suspension 2,400 mg PO HS PRN (Reason: Constipation) Rx Instructions: if no BM in 3 days magnesium citrate [Citroma] Solution 296 ml PO DAILY PRN (Reason: Constipation) Rx Instructions: if no results from enema ferrous sulfate 325 mg (65 mg iron) Tablet,Delayed Release (Dr/Ec) 325 mg PO BID Qty: 90 0RF bisacodyl 10 mg suppository 10 mg RECTAL DAILY PRN (Reason: constipation) Rx Instructions: if no results from MOM insulin aspart U-100 [Novolog U-100 Insulin aspart] 100 unit/mL solution See Rx Instructions .ROUTE .COMPLEX Rx Instructions: 150-200 2 units, 201-250 4 units, 251-300 6 units, 301-350 8 units, 351-400 10 units, 401-500 12 units, over 500 notify furosemide 40 mg Tablet 40 mg PO DAILY Qty: 30 0RF carvedilol [Coreg] 12.5 mg Tablet 12.5 mg PO Q12HR Qty: 60 0RF isosorbide dinitrate 10 mg Tablet 10 mg PO TID Qty: 90 0RF Patient Comments: not on [facility] medication list hydralazine 10 mg Tablet 10 mg PO TID Qty: 90 0RF cetirizine 10 mg tablet 10 mg PO DAILY pantoprazole [Protonix] 40 mg tablet,delayed release (DR/EC) 40 mg PO DAILY gabapentin 300 mg capsule 100 mg PO TID Qty: 10 0RF tramadol 50 mg tablet 50 mg PO Q8H PRN (Reason: pain) furosemide [Lasix] 20 mg tablet 20 mg PO MOWEFR Qty: 30 0RF Rx Instructions: Every Oqrprv-Oletsfrfz-Kwnfeu at 2 PM (to be given in addition to her Lasix 40mg QAM) cefuroxime axetil 500 mg tablet 500 mg PO Q12H Qty: 14 0RF sodium bicarbonate 650 mg tablet 650 mg PO BID ondansetron 4 mg tablet,disintegrating 4 mg PO Q8H PRN (Reason: nausea and vomiting) naloxone [Narcan] 4 mg/actuation spray,non-aerosol 4 mg intranasal Q2M Rx Instructions: spray 1 dose into ONE nostril; alternate nostrils w each dose until help arri ves Enema 19-7 gram/118 mL enema 118 ml RECTAL DAILY PRN (Reason: constipation) Patient Comments: if no results from 1 day after suppository Date of admission: 01/01/25 23:15 Primary Care Provider: Jadiel Martínez Admitting Provider: Chantelle Gonsales Attending physician on admission: Ismael Taylor Condition: Stable
[2025-01-07 14:00] VITALS: BP 129/42; PULSE 81; RESP 16; TEMP 36.9; O2SAT 91
[2025-01-07] MEDS: ACETAMINOPHEN 500 MG TABLET 1000 MG PO (14:16)
== END 2025-01-07 15:00 | disposition hospice, home (50) | DRG 291 ==
LOC: ANHED 22:14 → ANH3MEDSUR 23:51
PROVIDERS: General Practice; Admitting Provider General Practice; Emergency Provider Emergency Medicine; Visit Provider Family Medicine
DX: I13.0 Hypertensive heart and chronic kidney disease with heart failure and stage 1 through stage 4 chronic kidney disease, or unspecified chronic kidney disease (principal); G93.41 Metabolic encephalopathy; I50.43 Acute on chronic combined systolic (congestive) and diastolic (congestive) heart failure; T83.511A Infection and inflammatory reaction due to indwelling urethral catheter, initial encounter; I31.39 Other pericardial effusion (noninflammatory); N39.0 Urinary tract infection, site not specified; N18.30 Chronic kidney disease, stage 3 unspecified; E11.40 Type 2 diabetes mellitus with diabetic neuropathy, unspecified; E11.22 Type 2 diabetes mellitus with diabetic chronic kidney disease; E11.51 Type 2 diabetes mellitus with diabetic peripheral angiopathy without gangrene; D50.9 Iron deficiency anemia, unspecified; F03.90 Unspecified dementia, unspecified severity, without behavioral disturbance, psychotic disturbance, mood disturbance, and anxiety; K21.9 Gastro-esophageal reflux disease without esophagitis; E78.5 Hyperlipidemia, unspecified; I36.1 Nonrheumatic tricuspid (valve) insufficiency; Z66 Do not resuscitate; Z51.5 Encounter for palliative care; Z96.0 Presence of urogenital implants; Z89.611 Acquired absence of right leg above knee; Z90.12 Acquired absence of left breast and nipple; Z98.82 Breast implant status; Z87.440 Personal history of urinary (tract) infections; Z79.4 Long term (current) use of insulin; Z86.19 Personal history of other infectious and parasitic diseases; I25.2 Old myocardial infarction; Z85.3 Personal history of malignant neoplasm of breast; Z85.850 Personal history of malignant neoplasm of thyroid; Z89.612 Acquired absence of left leg above knee; Z87.2 Personal history of diseases of the skin and subcutaneous tissue
CPT/HCPCS: 36415; 36600; 70450; 71045; 71275; 80048; 80053; 81001; 82375; 82805; 82948; 83050; 83735; 83880; 85018; 85025; 85027; 85610; 85730; 87086; 93005; 93971; 96365; 96375; 99285; A9270; C8929; J0696; J1815; J1938; J2312; J7030; Q9957; Q9967